=== PATIENT | male | born 1935 | race Caucasian/White ===

== ENCOUNTER → 2023-05-04 | Outpatient (REF) | payer MEDICARE, SELFPAY ==
[2023-05-04 08:54] LABS: Troponin-I HS 116 pg/mL (3.0-78.0)
== END ==
LOC: OLS.WHLTSB 05:00
DX: I25.10 Atherosclerotic heart disease of native coronary artery without angina pectoris (principal); Z79.899 Other long term (current) drug therapy
CPT/HCPCS: 36415; 84484

== ENCOUNTER → 2023-05-06 | Outpatient (REF) | payer MEDICARE, SELFPAY ==
[2023-05-06 10:44] LABS: Digoxin Level 0.96 ng/mL (0.80-2.00)
== END ==
LOC: OLS.WHLTSB 05:05
DX: I48.0 Paroxysmal atrial fibrillation (principal); D46.9 Myelodysplastic syndrome, unspecified; K59.00 Constipation, unspecified; M15.9 Polyosteoarthritis, unspecified; M19.019 Primary osteoarthritis, unspecified shoulder
CPT/HCPCS: 36415; 80162

== ENCOUNTER 2023-05-14 12:14 | Inpatient (IN) | payer MEDICARE, SELFPAY ==
[2023-05-14] VITALS (11 sets, daily range): BP systolic 94–126; BP diastolic 45–99; PULSE 60–115; RESP 14–22; TEMP 36.4–39.7; O2SAT 2–100; BMI 28.0; BMI 27.6
--- NOTE | 2023-05-14 12:28 | EKG12_ITS ---
Test Reason : SYNCOPE Blood Pressure : / mmHG Vent. Rate : 063 BPM Atrial Rate : 065 BPM P-R Int : 000 ms QRS Dur : 162 ms QT Int : 430 ms P-R-T Axes : 013 -39 152 degrees QTc Int : 440 ms Ventricular-paced rhythm Abnormal ECG Confirmed by CASANDRA CAMP, KARL ([id number]), purchase request editor BEBO JUAN ([id number]) on 05/18/2023 1:03:26 PM Referred By: AMY Confirmed By:DELORES GUAJARDO MD
--- NOTE | 2023-05-14 12:29 | VDLE_ITS ---
Reason For Study: Right leg pain RIGHT GSV was harvested. CFV is compressible, spontaneous, competent and demonstrates pulsatile venous flow. FV is compressible, spontaneous, competent and demonstrates pulsatile venous flow. POP V is compressible, spontaneous, competent and demonstrates pulsatile venous flow. T/P Trunk is compressible. PTV is compressible. RT PerV is compressible. Procedure This is a venous duplex using B-mode, color flow and spectral Doppler. Exam performed portable in ED. A preliminary report was called and/or faxed to Dr. Diaz. VL/Venous Duplex US, Unilateral Interpretation Summary There is no evidence of right lower extremity deep vein thrombosis. Dilated rig ht popliteal vein to 2.14 x 2.17 cm in diameter Previously surgically harvested right great saphenous vein Pulsatile venous flow was noted throughout suggestive of proximal venous hypert ension or obstruction. Clinical correlation would be appropriate. Ordering Physician: Pedro Diaz Performed By: Tigist Brody RVT
--- NOTE | 2023-05-14 12:30 | EX.ED.DYSGE1 ---
HPI History of Present Illness Chief Complaint: Fever Informant: patient and family Narrative Narrative: Patient has a history of CMML, is following with Dr. Dozier at [facility] oncology, and has been getting chemotherapy injections. He had a routine follow-up for outpatient labs this morning, he had those drawn, and then went to breakfast, near the end of breakfast he started having rigors and feeling malaised. They got him into a car and took him over to his doctor's office and he was referred here to the ER where in triage she was determined to have a fever of 103.5. Patient denies any other new symptoms. He seemed to be hypoxic in triage but nursing admits that he was extremely tremulous, cool fingers and difficult to get a reading. The patient does not feel dyspneic or have any discomfort right now, just feels weak all over. He states his right leg has been hurting and swelling and he had an ultrasound scheduled for today to evaluate for DVT. He just had a med port of some sort removed from his right upper extremity due to it being clotted off according to a family member. [facility] Medical History (Updated 05/14/23 @ 16:[address] Pedro Diaz MD) Atheroembolism of foot Benign essential HTN Cerebral vascular accident (~08/2022) CMML (chronic myelomonocytic leukemia) Complete heart block Coronary artery disease (~09/2022) HLD (hyperlipidemia) Hypothyroidism Lumbar stenosis Myasthenia gravis Nocturnal hypoxemia Osteoarthritis Pacemaker (~09/2022) Home Medications aspirin 81 mg tablet,delayed release 81 mg PO DAILY 04/09/23 [History Last Taken 05/14/23] cholecalciferol (vitamin D3) 25 mcg (1,000 unit) tablet 25 mcg PO DAILY 04/09/23 [History Last Taken 05/14/23] cyanocobalamin (vitamin B-12) 1,000 mcg capsule 1,000 mcg PO DAILY 04/09/23 [History Last Taken 05/14/23] ferrous fumarate 325 mg (106 mg iron) tablet 325 mg PO TIDCM 04/09/23 [History Last Taken 05/14/23] furosemide 20 mg tablet (Lasix) 20 mg PO BID 04/09/23 [History Last Taken 05/14/23] levothyroxine 112 mcg tablet (Synthroid) 112 mcg PO DAILY 04/09/23 [History Last Taken 05/14/23] multivitamin 1 tab PO DAILY 04/09/23 [History Last Taken 05/14/23] polyethylene glycol 3350 17 gram oral powder packet 17 g PO DAILY PRN constipation 04/09/23 [History Last Taken Unknown] rivaroxaban 20 mg tablet (Xarelto) 20 mg PO QPM 04/09/23 [History Last Taken 05/13/23] atorvastatin 20 mg tablet 20 mg PO QHS 05/14/23 [History Last Taken 05/13/23] digoxin 125 mcg (0.125 mg) tablet 0.125 mg PO DAILY 05/14/23 [History Last Taken 05/14/23] metoprolol tartrate 25 mg tablet 12.5 mg PO BID 05/14/23 [History Last Taken 05/14/23] Allergy/AdvReac Type Severity Reaction Status Date / Time No Known Allergies Allergy Verified 05/14/23 12:20 Family History Mother Heart disease Father Heart disease Surgical History History of ankle surgery (~12/2020) History of arthroplasty of right shoulder (~2008) Hx of CABG (~07/2021) Social History Smoking Status: Former smoker how long ago did patient quit smokinyrs alcohol intake: current alcohol intake frequency: 0-2 drinks per day Alcohol type: beer, wine and hard liquor details: 1-2 beers per week substance use type: does not use ROS ROS ED Constitutional Constitutional ED: Reports chills, fatigue, fever(s) and subjective Eyes Eyes: Denies change in vision or diplopia ENT ENT ED: Denies rhinorrhea or sore throat Cardiovascular Cardiovascular: Reports edema; Denies chest pain or palpitations Respiratory/Chest Respiratory/Chest: Denies cough or dyspnea Gastrointestinal Gastrointestinal: Denies abdominal pain, melena, nausea or vomiting Genitourinary Genitourinary ED: Denies dysuria or hematuria Musculoskeletal Musculoskeletal: Reports extremity pain; Denies back pain or neck pain Integumentary Reports wounds; Denies abscess or rash Neurologic Neurologic: Denies headache(s), paresthesias or weakness Psychiatric Psychiatric: Denies anxiety or suicidal thoughts Hematologic/Lymphatic Hematologic/Lymphatic: Reports easy bleeding and easy bruising EXAM Physical Exam Const Vital Signs: 05/14/23 12:15 05/14/23 12:18 05/14/23 12:21 Temperature 103.5 F H Temperature Source Temporal Pulse Rate 115 H 73 Respiratory Rate 22 H 18 Respiratory Effort Normal Non-Labored Respiratory Pattern Normal Blood Pressure 126/99 H Blood Pressure Mean 108 Pulse Ox 83 95 Oxygen Delivery Method Room Air Nasal Cannula Oxygen Flow Rate (L/min) 3 05/14/23 12:22 05/14/23 12:54 05/14/23 14:44 Temperature 99.2 F H Temperature Source Oral Pulse Rate 60 Respiratory Rate 14 Respiratory Effort Respiratory Pattern Blood Pressure 94/51 L Blood Pressure Mean 65 Pulse Ox 98 98 Oxygen Delivery Method Nasal Cannula Nasal Cannula Nasal Cannula Oxygen Flow Rate (L/min) 3 2 Positive well nourished and well developed General Appearance ED: well developed and NAD HEENT Reports moist mucous membranes normocephalic and atraumatic Eyes PERRL and EOMs intact bilaterally Neck full ROM and supple Resp normal respiratory effort and clear to auscultation bilaterally Cardio regular rate, regular rhythm and no murmurs GI non-tender and non-distended Auscultation: normoactive bowel sounds Palpation: soft Back/Spine no CVA tenderness General Back: other FROM Extremity Extremity Narrative: Erythematous right lower leg from the mid trevizo down, nontender. Bandages on right lower leg, there is no active bleeding or signs of any infected wounds, the due to appear to be minor superficial healing wounds that the patient states were bleeding earlier. Medial right upper arm: Site/wound where apparent port was recently removed, sutures intact, no significant tenderness, there is some ecchymosis nearby, there is a small amount of serosanguineous discharge that is expressible from the incision but no dehiscence. General Extremety ED: Yes edema; Negative for pulses abnormal or tenderness General Extremity: edema bilateral lower extremity Details: moderate (Asymmetric, worse on the right); Negative for pulses abnormal Neuro oriented x3, CN's II-XII intact bilaterally and no sensory deficits noted Sensorium / Orientation: awake and alert Motor Exam: strength 5/5 throughout Skin Skin Narrative: Erythematous right lower leg, which is nontender superficially and asymmetric compared with the left. Both lower legs are tender to deep palpation, pressure needed to induce pitting. Postprocedural wound with sutures intact right upper arm see above, no signs of obvious infection or tenderness/abscess. Small minor superficial wounds on the right lower leg anteriorly. Multiple small puncture sites with bandages on them and minor surrounding ecchymosis across the lower abdominal wall. These areas are mildly tender but not severely so. No obvious signs of petechia or purpura. Sepsis Attestation Sepsis Alert: Yes Sepsis Attestation: Agree w/Sepsis Date exam was performed: 05/14/23 Time exam was performed: 15:00 Possible Source of Sepsis: Pulmonary, Skin/soft tissue and Wound Sepsis Organ Dysfunction Criteria Present: SBP < 90 mmHg or MAP < 65 mmHg and Lactic Acid > 2 mmol/L Supportive Findings: fever 103.5. slight bandemia. Fluid Resuscitation Fluid resuscitation indicated?: Yes Fluid Resuscitation ordered: Lesser volume fluid bolus ordered Amount of fluid ordered: 2,000 Reason for lesser fluid bolus:: Concern for fluid overload (seeping BLE peripheral edema), Heart failure (poss) and BP Responded to a lesser volume Sepsis Note Date exam was performed: 05/14/23 Time exam was performed: 16:06 Sepsis Attestation: Sepsis re-evaluation was performed Response to fluids: Fluid responsive hypotension (112/42) MDM MDM MDM Narrative Medical decision making narrative: Obtain no compromise and has a temperature of 103.5, of which she was having symptoms today. Right lower extremity appears to be cellulitic, since he had a blood clot in the port that was removed and he was supposed to have an ultrasound of the right lower extremity today anyway, we had that done which resulted preliminarily before any of the other testing, paint technician told me it was negative for DVT, so I presume this is cellulitis and may be the cause of his fever. His lungs are diminished throughout, but fairly clear, he had a minor cough according to a family member today but he has not been coughing recently. There is 1 view chest x-ray on my interpretation shows CHF versus bilateral pneumonia. This still has not been read by radiology. Therefore I sent the BNP, it is high at almost 1000. He does not have a prior echocardiogram in our system, I attempted to review the records. His blood counts are reviewed, he has a small amount of bands, cultures were sent and he was started on empiric Zosyn for the cellulitis. He is hypoxic even when we took him off of oxygen, down to 87% on room air at rest. Therefore he is back on a 2 L nasal cannula at 98%. I reexamined his leg looks no different, I do not suspect necrotizing fasciitis here, he does not have any subcutaneous emphysema and he can range all joints there without difficulty. His troponin is abnormal, but very slightly nonspecifically, and less so than it was previously at a different visit. This will be repeated. EKG shows nothing acute, but limited since he has paced rhythm. Clinically he is feeling well and asymptomatic at rest. He was very weak, given all of this plan is for admission. Paged oncology as well as hospitalist to discuss further. History & Record Review Additional record(s) reviewed:: Prior labs and No prior records (echo) Lab Data Attestation: I reviewed the patient's lab results. Labs: Laboratory Results - last 24 hr 05/14/23 12:55 WBC 7.0 RBC 2.84 L Hgb 9.3 L Hct 29.3 L MCV 103.2 H MCH 32.7 H MCHC 31.7 L RDW Std Deviation 83.3 H RDW Coeff of Luis Alberto 22.2 H Plt Count 399 MPV 10.7 Immature Gran % (Auto) 1.600 H Neut % (Auto) 89.7 H Lymph % (Auto) 5.6 L [place] % (Auto) 2.7 Eos % (Auto) 0.0 Baso % (Auto) 0.4 Absolute Neuts (auto) 6.2 Absolute Lymphs (auto) 0.39 L Nucleated RBC % 0.4 Differential Comment SCANNED Polychromasia RARE Anisocytosis 2+ Macrocytosis 1+ PT 18.6 H INR 1.5 APTT 30.3 Sodium 136 Potassium 4.5 Chloride 96 L Carbon Dioxide 35.0 H Anion Gap 5 BUN 31 H Creatinine 1.17 Estim Creat Clear Calc 41.59 Est GFR (MDRD) Af Amer 76 Est GFR (MDRD) Non-Af 63 BUN/Creatinine Ratio 26.5 H Glucose 252 H Lactic Acid 3.8 H* Calcium 8.4 L Total Bilirubin 1.20 H AST 20 ALT 51 Alkaline Phosphatase 92 Troponin I High Sens 111 H B-Natriuretic Peptide 972.1 H Total Protein 5.4 L Albumin 2.7 L Globulin 2.7 Albumin/Globulin Ratio 1.0 Radiography Diagnostic Testing: Clinical Impression(s) from Imaging Studies Chest X-Ray 05/14/23 13:34 IMPRESSION: Poor inspiratory effort. Findings in keeping with CHF. Electronically Signed: Demetri Castillo MD at 13:59 EDT , Rhythm Strip Rhythm Strip: vent pacing Rate: 60 Ectopy: None EKG Initial EKG: Attestation: I personally reviewed and interpreted this EKG as follows: Interpretation: No Acute Injury Pattern and Paced Management Discussion w/another healthcare provider: Hospitalist Discharge Plan Dx/Rx/DC Orders Clinical Impression: Cellulitis of right lower leg, Acquired immunocompromised state, CMML (chronic myelomonocytic leukemia), Hypoxemia, Sepsis Disposition Disposition: Acute Care [facility]
[2023-05-14] MEDS: Acetaminophen 500 MG Tablet 1000 MG PO (12:56)
[2023-05-14 13:11] LABS: Absolute Lymphocyte Count 0.39 X10^3/uL (0.83-4.51); Absolute Neutrophil Count 6.2 X10^3/uL (2.0-7.7); Basophil# 0.03 X10^3/uL; Basophil% 0.4 % (0-1); Hematocrit 29.3 % (40-54); Hemoglobin 9.3 g/dL (13.0-16.5); Lymphocyte # 0.39 X10^3/ul (0.83-4.51); Lymphocyte % 5.6 % (19-41); Mean Corp Hgb Conc 31.7 g/dL (32-36); Mean Corpuscular Hgb 32.7 pg (27.0-32.0); Mean Corpuscular Volume 103.2 fL (80-94); Mean Platelet Vol. 10.7 fl (6.2-12.0); Monocyte# 0.19 X10^3/uL; Monocyte% 2.7 % (0-10); NRBC Flagged by Analyzer 0.4 % (0-5); Neutrophil # 6.24 X10^3/uL (2.7-7.7); Neutrophil % 89.7 % (47-70); POSITIVE DIFFERENTIAL YES; POSITIVE MORPHOLOGY YES; Platelet Count 399 K/mm3 (150-450); RBC Distribution Width CV 22.2 % (11.6-14.6); RBC Distribution Width SD 83.3 fl (35.1-43.9); Red Blood Count 2.84 M/mm3 (4.6-6.2)
[2023-05-14 13:13] LABS: Differential Indicated SCAN CRITERIA MET
[2023-05-14 13:20] LABS: International Normalized Ratio 1.5; Prothrombin Time (Protime)PT. 18.6 SECONDS (11.7-14.9)
[2023-05-14 13:21] LABS: Partial Thromboplast Time 30.3 Seconds (24.1-36.2)
[2023-05-14 13:27] LABS: Anisocytosis 2+; Differential Comment SCANNED; Macrocytosis 1+; Polychromasia RARE
[2023-05-14 13:28] LABS: AST(SGOT) 20 U/L (15-37); Alanine Aminotransfer ALT/SGPT 51 U/L (16-61); Albumin, Serum 2.7 g/dL (3.2-5.0); Alkaline Phosphatase 92 U/L (45-117); Anion Gap 5 (5-15); BUN 31 mg/dL (7-18); BUN/Creat Ratio 26.5 RATIO (10-20); Calcium,Total 8.4 mg/dL (8.5-10.1); Chloride 96 mmol/L (98-107); Creatinine, Serum 1.17 mg/dL (0.70-1.30); EST Glomerular Filtration Rate 63 mL/min (>60); Est Glom Filt Rate - Afr Amer 76 mL/min (>60); Estimated Creatinine Clearance 41.59 ml/min; Globulin 2.7 g/dL (2.2-4.2); Glucose 252 mg/dL (74-106); Potassium 4.5 mmol/L (3.5-5.1); Protein, Total 5.4 g/dL (6.4-8.2); Sodium Level 136 mmol/L (136-145); Troponin-I HS 111 pg/mL (3.0-78.0)
--- NOTE | 2023-05-14 13:34 | RAD_ITS ---
STUDY: X-RAY CHEST REASON FOR EXAM: Male, 87 years old. Fever TECHNIQUE: Single AP portable view of the chest. COMPARISON: None. FINDINGS: EKG electrodes are seen. Limited inspiratory effort. Findings suggestive of CHF. There is no demonstrated pleural abnormality. Sternal cerclage wires and vascular clips are present from a prior sternotomy and coronary artery bypass graft procedure (CABG). A left-sided dual-chamber pacemaker is seen. Normal mediastinum and sam. Normal visualized pulmonary arteries. Normal visualized aortic arch and descending thoracic aorta. Normal visualized thoracic spine. The patient is status post bilateral shoulder replacement. There is no demonstrated abnormality of the visualized soft tissue structures of the upper abdomen. RAD/Chest 1 View (Portable) IMPRESSION: Poor inspiratory effort. Findings in keeping with CHF. Electronically Signed: Demetri Castillo MD at 13:59 EDT ,
[2023-05-14 13:59] LABS: Lactic Acid 3.8 mmol/L (0.4-1.9)
[2023-05-14] MEDS: 0.9% Normal Saline 1,000 ML 999 ML IV (15:16)
[2023-05-14 15:31] LABS: BNP,B-Type NATRIURETIC PEPTIDE 972.1 pg/mL (0-100)
--- NOTE | 2023-05-14 16:21 | NURSING ---
PCU CHOW SEPSIS, CELLULITIS, CHF, HYPOXEMIA, CMML
--- NOTE | 2023-05-14 16:47 | PCM.HP.STD ---
HPI - General General Date of Admission: 05/14/23 Date of Service: 05/14/23 Chief Complaint: Chills, RLE pain HPI Narrative Mr. Luis is an 87-year-old male with history of CVA, CMML on chemotherapy who presented to [facility] 05/14/2023 due to weakness and rigors. In the ED he was found to have a temperature of 103.5 and was given Tylenol and this improved and he felt much better. Was noted to have bilateral lower extremity swelling right greater than left and was scheduled to get an outpatient DVT scan in the next 1 to 2 days so this was performed in the ED and no new DVT noted and it was presumed that this was cellulitis and likely source of his infection. White blood cell count 7.0 with 89.7% neutrophils, hemoglobin 9.3 with no baseline available, creatinine 1.17 also with no baseline available and lactic 3.8. He did have 83% O2 sat on room air so chest x-ray obtained and chest x-ray did have findings suggestive of fluid overload and he had a BNP of 972 however given concerns for sepsis and his blood pressure soft he was given 2 L of IVF and no Lasix especially given his O2 sat increased to 98% on 2 L. Hospitalist consulted for admission. Patient evaluated with family at bedside. He reports that his right leg has been aching and hurting for the past 2 days but this morning was bothering him more and he also felt the chills and weakness prompting him to come to the emergency department because he was worried he had a blood clot as he just had a chronic Mediport that has been in his right upper arm removed several days ago due to thrombus information there and has had some weeping of serosanguineous fluid from there but no pus. He said both of his lower extremities always stays swollen and he takes Lasix 3 times a day at home for this and subsequently has to urinate most hours of the night. Denies fevers noted before this day, does note that his skin will spontaneously tear open and he will get bleeding or wounds on his legs and does have a Band-Aid over 1 on his right trevizo. Denies this happening before. Denies any weight changes, denies any chest pain or shortness of breath and denies any consistent coughing. No other complaints at this time [facility] Medical History (Updated 05/14/23 @ 17:[address] Mary Prather MD) Atheroembolism of foot Benign essential HTN Cerebral vascular accident (~08/2022) CMML (chronic myelomonocytic leukemia) Complete heart block Coronary artery disease (~09/2022) HLD (hyperlipidemia) Hypothyroidism Lumbar stenosis Myasthenia gravis Nocturnal hypoxemia Osteoarthritis Pacemaker (~09/2022) Home Medications aspirin 81 mg tablet,delayed release 81 mg PO DAILY 04/09/23 [History Last Taken 05/14/23] cholecalciferol (vitamin D3) 25 mcg (1,000 unit) tablet 25 mcg PO DAILY 04/09/23 [History Last Taken 05/14/23] cyanocobalamin (vitamin B-12) 1,000 mcg capsule 1,000 mcg PO DAILY 04/09/23 [History Last Taken 05/14/23] ferrous fumarate 325 mg (106 mg iron) tablet 325 mg PO TIDCM 04/09/23 [History Last Taken 05/14/23] furosemide 20 mg tablet (Lasix) 20 mg PO BID 04/09/23 [History Last Taken 05/14/23] levothyroxine 112 mcg tablet (Synthroid) 112 mcg PO DAILY 04/09/23 [History Last Taken 05/14/23] multivitamin 1 tab PO DAILY 04/09/23 [History Last Taken 05/14/23] polyethylene glycol 3350 17 gram oral powder packet 17 g PO DAILY PRN constipation 04/09/23 [History Last Taken Unknown] rivaroxaban 20 mg tablet (Xarelto) 20 mg PO QPM 04/09/23 [History Last Taken 05/13/23] atorvastatin 20 mg tablet 20 mg PO QHS 05/14/23 [History Last Taken 05/13/23] digoxin 125 mcg (0.125 mg) tablet 0.125 mg PO DAILY 05/14/23 [History Last Taken 05/14/23] metoprolol tartrate 25 mg tablet 12.5 mg PO BID 05/14/23 [History Last Taken 05/14/23] Allergy/AdvReac Type Severity Reaction Status Date / Time No Known Allergies Allergy Verified 05/14/23 12:20 Family History Mother Heart disease Father Heart disease Surgical History History of ankle surgery (~12/2020) History of arthroplasty of right shoulder (~2008) Hx of CABG (~07/2021) Social History Smoking Status: Former smoker how long ago did patient quit smokinyrs alcohol intake: current alcohol intake frequency: 0-2 drinks per day Alcohol type: beer, wine and hard liquor details: 1-2 beers per week substance use type: does not use ROS ROS Narrative General: Fever HENT: Denies headache, denies stuffy nose, denies sore throat EYES: Denies changes in vision Resp: Denies consistent cough, denies shortness of breath Cardiac: Denies chest pain GI: Denies abdominal pain, denies changes in bowel, denies nausea/vomiting : Denies changes in urination Extremity: chronic BLE swelling, RLE redness > left MSK: Gen weakness Neuro: Denies any numbness/tingling Heme: Easy bleeding and skin tears, occasional weeping in legs Skin: RLE redness Psychiatric: No complaints voiced Vital Signs Vital Signs Vital Signs: 05/14/23 12:15 05/14/23 12:18 05/14/23 12:21 Temperature 103.5 F H Temperature Source Temporal Pulse Rate 115 H 73 Respiratory Rate 22 H 18 Respiratory Effort Normal Non-Labored Respiratory Pattern Normal Blood Pressure 126/99 H Blood Pressure Mean 108 Pulse Ox 83 95 Oxygen Delivery Method Room Air Nasal Cannula Oxygen Flow Rate (L/min) 3 05/14/23 12:22 05/14/23 12:54 05/14/23 14:44 Temperature 99.2 F H Temperature Source Oral Pulse Rate 60 Respiratory Rate 14 Respiratory Effort Respiratory Pattern Blood Pressure 94/51 L Blood Pressure Mean 65 Pulse Ox 98 98 Oxygen Delivery Method Nasal Cannula Nasal Cannula Nasal Cannula Oxygen Flow Rate (L/min) 3 2 05/14/23 16:25 Temperature 99.2 F H Temperature Source Oral Pulse Rate 60 Respiratory Rate 16 Respiratory Effort Respiratory Pattern Blood Pressure 112/59 L Blood Pressure Mean 76 Pulse Ox 98 Oxygen Delivery Method Nasal Cannula Oxygen Flow Rate (L/min) 2 Weight Weight: 81.4 kg Body Mass Index (BMI) 28.0 Physical Exam Narrative General: Alert, oriented, no apparent distress HEENT: Atraumatic, normocephalic Eyes: Anicteric, normal conjunctiva, extraocular movements grossly intact Neck: Supple Respiratory: Somewhat diminished bilaterally, normal respiratory effort Cardiovascular: Regular rate and rhythm GI: Soft, nontender, nondistended Extremities: 2-3+ bilateral lower extremity edema Musculoskeletal: Moving all extremities Neuro: No overt focal neurological deficits Skin: Right arm wrapped where sutures are, right trevizo with abrasion and erythema Psych: Cooperative Results Lab / Micro Data 05/14/23 12:55 05/14/23 12:55 Labs: Laboratory Results - last 24 hr 05/14/23 12:55: WBC 7.0, RBC 2.84 L, Hgb 9.3 L, Hct 29.3 L, MCV 103.2 H, MCH 32.7 H, MCHC 31.7 L, RDW Std Deviation 83.3 H, RDW Coeff of Luis Alberto 22.2 H, Plt Count 399, MPV 10.7, Immature Gran % (Auto) 1.600 H, Neut % (Auto) 89.7 H, Lymph % (Auto) 5.6 L, [place] % (Auto) 2.7, Eos % (Auto) 0.0, Baso % (Auto) 0.4, Absolute Neuts (auto) 6.2, Absolute Lymphs (auto) 0.39 L, Nucleated RBC % 0.4, Differential Comment SCANNED, Polychromasia RARE, Anisocytosis 2+, Macrocytosis 1+, PT 18.6 H, INR 1.5, APTT 30.3, Sodium 136, Potassium 4.5, Chloride 96 L, Carbon Dioxide 35.0 H, Anion Gap 5, BUN 31 H, Creatinine 1.17, Estim Creat Clear Calc 41.59, Est GFR (MDRD) Af Amer 76, Est GFR (MDRD) Non-Af 63, BUN/Creatinine Ratio 26.5 H, Glucose 252 H, Lactic Acid 3.8 H*, Calcium 8.4 L, Total Bilirubin 1.20 H, AST 20, ALT 51, Alkaline Phosphatase 92, Troponin I High Sens 111 H, B-Natriuretic Peptide 972.1 H, Total Protein 5.4 L, Albumin 2.7 L, Globulin 2.7, Albumin/Globulin Ratio 1.0 Rhythm Strip Rhythm Strip: vent pacing Rate: 60 Ectopy: None Radiology Impression Chest X-Ray 07/06/23 13:34 IMPRESSION: Poor inspiratory effort. Findings in keeping with CHF. Electronically Signed: Demetri Castillo MD at 13:59 EDT , Assessment & Plan Assessment/Plan (1) Sepsis: (2) Hypoxemia: (3) CMML (chronic myelomonocytic leukemia): (4) Cellulitis of right lower leg: (5) Complete heart block: (6) Pacemaker: (7) Coronary artery disease: PLAN: Plan #Sepsis 2/2 likely RLE cellulitis -Per verbal checkout from ED physician pt had SBP in the 80's and lactic acid resulted at 3.8 with left shift on WBC and likely source of RLE -Preliminary results of right lower extremity negative for DVT, presumably cellulitis -Bld cx -2L IVF ordered and BP improved, not given further fluids d/t concomitant concern for fluid overload -Broad spectrum abx -Trend lactic #Acute hypoxia -Unclear etiology, there is unclear if it was fluid overload based on BNP of 972 and chest x-ray appeared congested with lower extremity edema however he improved with antibiotics, fluids and 2 L of O2 -Chest x-ray was poor inspiration -We will obtain echocardiogram -I's and O's, daily weights #Elevated lactic acid -as above #History of coronary artery disease/pacemaker -CABG x4 2 years ago -Pacemaker last fall -Continue statin and aspirin #CMML -F/w Dr. Dozier, chemo qmonth #Atrial fibrillation -Per history -Patient on digoxin, metoprolol, Xarelto -Continue Xarelto and metoprolol as blood pressure allows -We will check digoxin level #Hyperglycemia -No known history of diabetes but glucose was 252 on BMP in the ED -May be secondary to infection, will add glucose checks and sliding scale #DANE versus CKD stage IIIb -No baseline, unclear if this is elevated for him however BUN was somewhat up 31 -Trend BMP -Patient received IVF #Microcytic anemia -Unclear baseline, monitor for signs or symptoms of bleeding -Continue oral iron supplementation -Daily CBC #Hypothyroidism -Continue Synthroid #DVT ppx: Jesse Prather MD Time spent in the patient's overall evaluation,decision-making process, review of diagnostic data, adjustment of management, discussion with other providers, nursing nursing and ancillary staff involved in patient's care documentation, 76 Minutes Sepsis Attestation Sepsis Alert: Yes Sepsis Attestation: Agree w/Sepsis Date exam was performed: 05/14/23 Time exam was performed: 04:20 Possible Source of Sepsis: Skin/soft tissue Sepsis Organ Dysfunction Criteria Present: SBP < 90 mmHg or MAP < 65 mmHg and Lactic Acid > 2 mmol/L Fluid Resuscitation Fluid resuscitation indicated?: Yes Fluid Resuscitation ordered: Lesser volume fluid bolus ordered Amount of fluid ordered: 2,000 Reason for lesser fluid bolus:: Concern for fluid overload Charges/Coding Visit Charges Inpatient E&M: 36155 Init Hosp L3
--- NOTE | 2023-05-14 17:04 | ECHOD_ITS ---
Version 2 Reason For Study: CHF Procedure This was a 2D Doppler, Color Flow transthoracic echocardiogram. technically difficult study due to uncooperative patient. Exam performed portable in patient room. Left Ventricle Normal LV size. The estimated ejection fraction is 55-60 %. Unable to assess diastolic dysfunction. No regional wall motion abnormalities noted. Right Ventricle Normal RV size. There is a pacemaker lead in the right ventricle. Normal systolic function. Atria Normal left atrium. Normal right atrium. ICD or pacer leads identified within the right atrium. No doppler evidence for ASD. Mitral Valve There is severe mitral annular calcification. There is no mitral valve stenosis. Trivial mitral valve insufficiency. Tricuspid Valve There is no tricuspid stenosis. Mild tricuspid valve insufficiency. Pulmonary artery systolic pressure is 65 mmHg. Aortic Valve Trisinus/trileaflet aortic valve. Moderate diffuse aortic valve thickening. Mild aortic stenosis. No aortic valve insufficiency. Pulmonic Valve There is no pulmonic valvular stenosis. No pulmonic valve insufficiency. Great Vessels Normal aortic root. Pericardium/Pleural No pericardial effusion. MMode/2D Measurements & Calculations LVIDd: 4.7 cm IVSd: 1.1 cm LVOT diam: 2.3 cm LVIDs: 3.8 cm LVPWd: 1.7 cm LVOT area: 4.3 cm2 FS: 19.2 % Ao root diam: 3.7 cm LAV(MOD-bp): 58.2 ml LVAd ap4: 28.0 cm2 LAV(MOD-bp) Indexed: 30.3 ml/m2 LVLd ap4: 7.8 cm LAV(MOD-sp2): 59.2 ml EDV(MOD-sp4): 81.6 ml LAV(MOD-sp4): 56.9 ml EDV(sp4-el): 85.2 ml LVAs ap4: 17.4 cm2 LVLs ap4: 6.6 cm ESV(MOD-sp4): 37.7 ml ESV(sp4-el): 39.1 ml EF(MOD-sp4): 53.8 % EF(sp4-el): 54.1 % SV(MOD-sp4): 43.9 ml SV(sp4-el): 46.1 ml LA A4 area: 20.0 cm2 LA dimension(2D): 3.7 cm RA A4 area: 16.1 cm2 TAPSE: 1.3 cm Time Measurements MV dec time: 0.16 sec Doppler Measurements & Calculations MV E max oneal: 84.9 cm/sec Lat Peak E' Oneal: 10.7 cm/sec Med Peak E' Oneal: 10.3 cm/sec MV A max oneal: 47.2 cm/sec E/E' lat: 7.9 E/E' med: 8.2 MV E/A: 1.8 MV V2 max: 93.1 cm/sec Ao V2 max: 158.8 cm/sec MV max P.5 mmHg MV dec slope: 519.7 cm/sec2 Ao max P.1 mmHg MV V2 mean: 39.7 cm/sec Ao V2 mean: 112.3 cm/sec MV mean P.93 mmHg Ao mean P.8 mmHg MV V2 VTI: 21.7 cm Ao V2 VTI: 35.8 cm AV (velocity ratio): 0.83 MVA(VTI): 5.9 cm2 DELONTE(I,D): 3.6 cm2 DELONTE(V,D): 4.1 cm2 LV V1 max: 150.5 cm/sec SV(LVOT): 127.2 ml PA V2 max: 107.2 cm/sec LV V1 max P.1 mmHg PA V2 mean: 67.4 cm/sec LV V1 mean P.7 mmHg LV V1 mean: 101.0 cm/sec LV V1 VTI: 29.6 cm TR max oneal: 383.6 cm/sec TR max P.9 mmHg ECHO/Echo Complete Interpretation Summary The estimated ejection fraction is 55-60 %. Unable to assess diastolic dysfunction. Trivial mitral valve insufficiency. Mild aortic stenosis. Ordering Physician: Mary Prather Referring Physician: NO PCP GIVEN Performed By: Ngoc [place] RCS
[2023-05-14 17:05] LABS: Reflex Lactate? Y
--- NOTE | 2023-05-14 17:51 | ED.RN ---
THIS RN ORDERED PT MEAL.
--- NOTE | 2023-05-14 17:51 | CM.ED ---
Social Work SW introduced self and role to patient. SW discussed discussed discharge planning with patient. Pt reports he would like to return to [place] and declined needing a list. SW to follow for discharge needs. Alexandra Colon MACHINE COMPOSITOR, CONDITIONER TENDER
[2023-05-14 18:14] LABS: Lactic Acid 2.4 mmol/L (0.4-1.9)
--- NOTE | 2023-05-14 21:56 | PCM.RX.CS ---
Consult Antibiotic Management Pharmacy has been consulted to manage selected antiobiotic: Vancomycin Type of Intervention Type of Consult: New start Prior Doses of Antibiotics Prior Doses of Antibiotics Received/Current Regimen: 2000mg vancomycin given 05/14/23 @2131 Labs Labs: Sodium 136 mmol/L (136-145) 05/14/23 12:55 Potassium 4.5 mmol/L (3.5-5.1) 05/14/23 12:55 Chloride 96 mmol/L (98-107) L 05/14/23 12:55 Carbon Dioxide 35.0 mmol/L (21.0-32.0) H 05/14/23 12:55 Anion Gap 5 (5-15) 05/14/23 12:55 BUN 31 mg/dL (7-18) H 05/14/23 12:55 Creatinine 1.17 mg/dL (0.70-1.30) 05/14/23 12:55 Est GFR (MDRD) Af Amer 76 mL/min (>60) 05/14/23 12:55 Est GFR (MDRD) Non-Af 63 mL/min (>60) 05/14/23 12:55 BUN/Creatinine Ratio 26.5 RATIO (10-20) H 05/14/23 12:55 Glucose 252 mg/dL (74-106) H 05/14/23 12:55 Dosing Weight Weight used for dosin.2 kg Estimated Creatinine Clearance Estimated Creatinine Clearance: 41.6 Goal Trough Goal Trough: 15-20 mcg/mL Pharmacy Plan for Drug Dosing Pharmacy Plan for Drug Dosing: Pharmacy Service will continue to monitor and adjust dosing as required. Follow-Up Labs Follow-Up Labs: Trough: Vancomycin Date/Time Labs Ordered Labs to be done on [date and time ordered]: 05/16/23 @0900
[2023-05-14] MEDS: Metoprolol Tartrate 25 MG Tablet 12.5 MG PO (22:08)
[2023-05-14] MEDS: Atorvastatin Calcium 20 MG Tablet PO (22:08)
[2023-05-15] VITALS (10 sets, daily range): BP systolic 103–136; BP diastolic 51–57; PULSE 56–60; RESP 16–18; TEMP 36.8–37; O2SAT 92–99; BMI 27.9
[2023-05-15 00:22] LABS: Bedside Glucose 171 mg/dL (74-106)
[2023-05-15] MEDS: Levothyroxine 112 MCG Tablet PO (06:07)
[2023-05-15 06:27] LABS: Absolute Lymphocyte Count 0.52 X10^3/uL (0.83-4.51); Absolute Neutrophil Count 7.5 X10^3/uL (2.0-7.7); Basophil# 0.05 X10^3/uL; Basophil% 0.6 % (0-1); Eosinophil# 0.02 X10^3/uL; Eosinophils% 0.2 % (0-5); Hemoglobin 9.2 g/dL (13.0-16.5); Lymphocyte # 0.52 X10^3/ul (0.83-4.51); Lymphocyte % 6.2 % (19-41); Mean Corp Hgb Conc 31.7 g/dL (32-36); Mean Corpuscular Hgb 33.1 pg (27.0-32.0); Mean Corpuscular Volume 104.3 fL (80-94); Mean Platelet Vol. 11.4 fl (6.2-12.0); Monocyte# 0.15 X10^3/uL; Monocyte% 1.8 % (0-10); NRBC Flagged by Analyzer 0.4 % (0-5); Neutrophil # 7.49 X10^3/uL (2.7-7.7); Neutrophil % 89.8 % (47-70); POSITIVE DIFFERENTIAL YES; POSITIVE MORPHOLOGY YES; Platelet Count 321 K/mm3 (150-450); RBC Distribution Width CV 22.8 % (11.6-14.6); RBC Distribution Width SD 85.3 fl (35.1-43.9); Red Blood Count 2.78 M/mm3 (4.6-6.2); White Blood Count 8.4 K/mm3 (4.4-11.0)
[2023-05-15 06:51] LABS: Differential Indicated SCAN CRITERIA MET
[2023-05-15 07:22] LABS: Bedside Glucose 108 mg/dL (74-106)
[2023-05-15 07:25] LABS: Digoxin Level 1.39 ng/mL (0.80-2.00)
[2023-05-15 07:26] LABS: ALB/GLOB Ratio 0.9 RATIO (0.9-2.4); AST(SGOT) 22 U/L (15-37); Alanine Aminotransfer ALT/SGPT 46 U/L (16-61); Albumin, Serum 2.4 g/dL (3.2-5.0); Alkaline Phosphatase 81 U/L (45-117); Anion Gap 2 (5-15); BUN 28 mg/dL (7-18); Calcium,Total 8.1 mg/dL (8.5-10.1); Chloride 102 mmol/L (98-107); Creatinine, Serum 0.93 mg/dL (0.70-1.30); EST Glomerular Filtration Rate 81 mL/min (>60); Est Glom Filt Rate - Afr Amer 99 mL/min (>60); Estimated Creatinine Clearance 52.32 ml/min; Globulin 2.6 g/dL (2.2-4.2); Glucose 112 mg/dL (74-106); Magnesium 1.9 mg/dL (1.6-2.6); Potassium 4.1 mmol/L (3.5-5.1); Sodium Level 138 mmol/L (136-145); Thyroid Stim Hormone (TSH) 0.61 uIU/mL (0.358-3.74)
--- NOTE | 2023-05-15 07:38 | PCM.RX.CS ---
Consult Antibiotic Management Pharmacy has been consulted to manage selected antiobiotic: Vancomycin Type of Intervention Type of Consult: Follow-up Suspected Infection Suspected Infection: Skin/Soft tissue Labs Labs: Sodium 138 mmol/L (136-145) 05/15/23 05:17 Potassium 4.1 mmol/L (3.5-5.1) 05/15/23 05:17 Chloride 102 mmol/L (98-107) 05/15/23 05:17 Carbon Dioxide 34.0 mmol/L (21.0-32.0) H 05/15/23 05:17 Anion Gap 2 (5-15) L 05/15/23 05:17 BUN 28 mg/dL (7-18) H 05/15/23 05:17 Creatinine 0.93 mg/dL (0.70-1.30) 05/15/23 05:17 Est GFR (MDRD) Af Amer 99 mL/min (>60) 05/15/23 05:17 Est GFR (MDRD) Non-Af 81 mL/min (>60) 05/15/23 05:17 BUN/Creatinine Ratio 30.0 RATIO (10-20) H 05/15/23 05:17 Glucose 112 mg/dL (74-106) H 05/15/23 05:17 Goal Trough Goal Trough: 15-20 mcg/mL Pharmacy Plan for Drug Dosing Pharmacy Plan for Drug Dosing: DAILY ASSESSMENT Current Vancomycin Dose: 500mg Q12H Number of Doses Received: 2000mg x1 loading dose Current Renal Function: sCr 0.82 (CrCl 57.1 ml/min with AdjBW 72.1kg) Renal Function Trend: improved Lab/Micro: pending Any Change in Vanc Plan: Yes - increase Vancomycin dosing regimen to 750mg Q12H Pending Level: Vancomycin trough @ 0900 05/16/23 Pharmacy Service will continue to monitor and adjust dosing as required. Follow-Up Labs Follow-Up Labs: Trough: Vancomycin Date/Time Labs Ordered Labs to be done on [date and time ordered]: 09:00 05/16/23
[2023-05-15 07:39] LABS: Macrocytosis 1+; Platelet Estimate ADEQUATE (ADEQ); Polychromasia 1+
[2023-05-15 07:41] LABS: International Normalized Ratio 1.5; Prothrombin Time (Protime)PT. 18.2 SECONDS (11.7-14.9)
--- NOTE | 2023-05-15 08:34 | PN.HOSP_ITS ---
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) Atherosclerotic heart disease of [place] coronary artery without angina pectoris (05/14/23) Atrioventricular block, 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) Cellulitis of right lower limb (05/14/23) Hypoxemia (05/14/23) Presence of cardiac pacemaker (05/14/23) Subjective Subjective Patient still has pain in his leg but overall feels better than he did yesterday, both legs still swollen but has some improvement in redness and right leg, denies shortness of breath Objective Data Objective Data Vital Signs: Vital Signs Temp Pulse Resp BP Pulse Ox O2 Del Method O2 Flow Rate 98.2 F 60 17 121/57 H 97 Room Air 2 05/15/23 03:33 05/15/23 06:15 05/15/23 03:33 05/15/23 03:33 05/15/23 06:15 05/15/23 06:15 05/14/23 21:52 Oxygen Flow Rate (L/min) 2 Oxygen Delivery Method Room Air Weight: 81 kg Body Mass Index (BMI) 27.9 Intake & Output: Intake and Output for Last 24 Hours 05/13/23 05/14/23 05/15/23 23:59 23:59 23:59 Intake Total 2140 / 2140 50 / 50 Output Total 400 / 400 Balance 2140 / 2140 -350 / -350 Lab / Micro Data 05/15/23 05:17 05/15/23 05:17 Labs: Laboratory Results - last 24 hr 05/14/23 12:55: WBC 7.0, RBC 2.84 L, Hgb 9.3 L, Hct 29.3 L, MCV 103.2 H, MCH 32.7 H, MCHC 31.7 L, RDW Std Deviation 83.3 H, RDW Coeff of Luis Alberto 22.2 H, Plt Count 399, MPV 10.7, Immature Gran % (Auto) 1.600 H, Neut % (Auto) 89.7 H, Lymph % (Auto) 5.6 L, [place] % (Auto) 2.7, Eos % (Auto) 0.0, Baso % (Auto) 0.4, Absolute Neuts (auto) 6.2, Absolute Lymphs (auto) 0.39 L, Nucleated RBC % 0.4, Differential Comment SCANNED, Polychromasia RARE, Anisocytosis 2+, Macrocytosis 1+, PT 18.6 H, INR 1.5, APTT 30.3, Sodium 136, Potassium 4.5, Chloride 96 L, Carbon Dioxide 35.0 H, Anion Gap 5, BUN 31 H, Creatinine 1.17, Estim Creat Clear Calc 41.59, Est GFR (MDRD) Af Amer 76, Est GFR (MDRD) Non-Af 63, BUN/Creatinine Ratio 26.5 H, Glucose 252 H, Lactic Acid 3.8 H*, Calcium 8.4 L, Total Bilirubin 1.20 H, AST 20, ALT 51, Alkaline Phosphatase 92, Troponin I High Sens 111 H, B- Natriuretic Peptide 972.1 H, Total Protein 5.4 L, Albumin 2.7 L, Globulin 2.7, Albumin/Globulin Ratio 1.0 05/14/23 17:11: Lactic Acid 2.4 H* 05/14/23 22:13: POC Glucose 171 H 05/15/23 05:17: WBC 8.4, RBC 2.78 L, Hgb 9.2 L, Hct 29.0 L, MCV 104.3 H, MCH 33.1 H, MCHC 31.7 L, RDW Std Deviation 85.3 H, RDW Coeff of Luis Alberto 22.8 H, Plt Count 321, MPV 11.4, Immature Gran % (Auto) 1.400 H, Neut % (Auto) 89.8 H, Lymph % (Auto) 6.2 L, [place] % (Auto) 1.8, Eos % (Auto) 0.2, Baso % (Auto) 0.6, Absolute Neuts (auto) 7.5, Absolute Lymphs (auto) 0.52 L, Nucleated RBC % 0.4, Platelet Estimate ADEQUATE, Polychromasia 1+, Macrocytosis 1+, PT 18.2 H, INR 1.5, Sodium 138, Potassium 4.1, Chloride 102, Carbon Dioxide 34.0 H, Anion Gap 2 L, BUN 28 H , Creatinine 0.93, Estim Creat Clear Calc 52.32, Est GFR (MDRD) Af Amer 99, Est GFR (MDRD) Non-Af 81, BUN/Creatinine Ratio 30.0 H, Glucose 112 H, Calcium 8.1 L, Magnesium 1.9, Total Bilirubin 1.50 H, AST 22, ALT 46, Alkaline Phosphatase 81, Total Protein 5.0 L, Albumin 2.4 L, Globulin 2.6, Albumin/Globulin Ratio 0.9, TSH 0.61, Digoxin 1.39 05/15/23 06:11: POC Glucose 108 H Radiography Diagnostic Testing: Radiology Impression Venous Doppler Study 05/14/23 12:29 Interpretation Summary There is no evidence of right lower extremity deep vein thrombosis. Dilated right popliteal vein to 2.14 x 2.17 cm in diameter Previously surgically harvested right great saphenous vein Pulsatile venous flow was noted throughout suggestive of proximal venous hypertension or obstruction. Clinical correlation would be appropriate. Ordering Physician: Pedro Diaz Performed By: Tigist Brody, T Chest X-Ray 05/14/23 13:34 IMPRESSION: Poor inspiratory effort. Findings in keeping with CHF. Electronically Signed: Demetri Castillo MD at 13:59 EDT Reading Location ID and State: [address] [place] [address] , Service support , Rhythm Strip Rhythm Strip: vent pacing Rate: 60 Ectopy: None Physical Exam Narrative General: Alert, oriented, no apparent distress HEENT: Atraumatic, normocephalic Eyes: Anicteric, normal conjunctiva, extraocular movements grossly intact Neck: Supple Respiratory: Somewhat diminished bilaterally, normal respiratory effort Cardiovascular: Regular rate and rhythm GI: Soft, nontender, nondistended Extremities: 2-3+ bilateral lower extremity edema Musculoskeletal: Moving all extremities Neuro: No overt focal neurological deficits Skin: Erythema on right leg improving Psych: Cooperative Assessment & Plan Assessment/Plan (1) Sepsis: (2) Hypoxemia: (3) CMML (chronic myelomonocytic leukemia): (4) Cellulitis of right lower leg: (5) Complete heart block: (6) Pacemaker: (7) Coronary artery disease: PLAN: Plan #Sepsis 2/2 likely RLE cellulitis -Per verbal checkout from ED physician pt had SBP in the 80's and lactic acid resulted at 3.8 with left shift on WBC and likely source of RLE -Preliminary results of right lower extremity negative for DVT, presumably cellulitis -Bld cx -2L IVF ordered and BP improved, not given further fluids d/t concomitant concern for fluid overload -Broad spectrum abx -Trend lactic -05/15: Lactic improved and blood cultures growing gram-negative rods 2 out of 2, await speciation, continue broad-spectrum antibiotics at this time. Nothing present on leg to culture at this time #Acute hypoxia?resolved -Unclear etiology, there is unclear if it was fluid overload based on BNP of 972 and chest x-ray appeared congested with lower extremity edema however he improved with antibiotics, fluids and 2 L of O2 -Chest x-ray was poor inspiration -We will obtain echocardiogram -I's and O's, daily weights -05/15: Doing well on room air now that patient is doing better clinically #Elevated lactic acid -as above -05/15: Down trended with fluids and antibiotics #History of coronary artery disease/pacemaker -CABG x4 2 years ago -Pacemaker last fall -Continue statin and aspirin #CMML -F/w Dr. Dozier, chemo qmonth #Atrial fibrillation -Per history -Patient on digoxin, metoprolol, Xarelto -Continue Xarelto and metoprolol as blood pressure allows -We will check digoxin level -Digoxin level 1.39, likely higher than patient requires and additionally heart rate fairly slow, continue metoprolol and will hold digoxin at this time, may need adjustment in dosing ultimately if still necessary #Hyperglycemia -No known history of diabetes but glucose was 252 on BMP in the ED -May be secondary to infection, will add glucose checks and sliding scale -05/15: Glucose improved with treatment of underlying infection, glucose remained stable, DC glucose checks #DANE versus CKD stage IIIb -No baseline, unclear if this is elevated for him however BUN was somewhat up 31 -Trend BMP -Patient received IVF -05/15: Kidney function improving with IVF, continue supportive care, still unclear DANE versus CKD, trend BMP #Microcytic anemia -Unclear baseline, monitor for signs or symptoms of bleeding -Continue oral iron supplementation -Daily CBC -05/15: Hemoglobin virtually unchanged today, continue present management, continue Xarelto #Hypothyroidism -Continue Synthroid #DVT ppx: [place] Mary Prather MD Time spent in the patient's overall evaluation,decision-making process, review of diagnostic data, adjustment of management, discussion with other providers, nursing nursing and ancillary staff involved in patient's care documentation, 37 Minutes Charges/Coding Visit Charges Inpatient E&M: 02977 Subs Hosp L2
[2023-05-15] MEDS: Metoprolol Tartrate 25 MG Tablet 12.5 MG PO (09:27)
[2023-05-15] MEDS: Aspirin E.C. 81 MG Tablet PO (09:27)
[2023-05-15] MEDS: Ferrous Sulfate 325 MG Tablet PO ×3 (09:27→18:08)
--- NOTE | 2023-05-15 10:05 | CASEMGMT ---
Discharge Planning Patient resides at [facility] and wishes to return. Updates sent via [employer]. Asked if precert will be needed. Awaiting response. Almita Mccartney, Discharge Planning Asst.
[2023-05-15] MEDS: Magnesium Sulfate 4gm/100mL 4 GM/100 ML IV.SOLN. IV (11:40)
[2023-05-15 12:04] LABS: Bedside Glucose 147 mg/dL (74-106)
--- NOTE | 2023-05-15 14:10 | CHAPLAIN ---
Type of Pastoral Visit _x__ Initial Visit ___ Follow-up Visit ___ On-call Visit ___ General Patient Visit ___ Spiritual Assessment ___ Family Conference ___ Bereavement ___ Rapid Response ___ Code Blue ___ Other (describe below) Pastoral Care Referral From _x__ Patient ___ Family ___ Nurse ___ Physician ___ Media Strategist ___ Licensed Real Estate Broker ___ Other (describe below) Sacrament/Intervention _x__ Active listening ___ Anointing ___ Pentecostal ___ Bereavement ___ Communion ___ Melissa exploration ___ _x__ Life review _x__ Prayer ___ Reconciliation ___ Sacrament of Sick _x__ Supportive presence ___ Wedding ___ Other (describe below) Pastoral Comments patient is resting in bed; patient is given opportunity and time to discuss his need for admission, how he is coping with this, and for some life review; pt expresses gratitude for time given, concern, and for a prayer
--- NOTE | 2023-05-15 15:29 | CASEMGMT ---
GARTH spoke with patient and he confirmed his plan is to return to [facility]. Patient said he should have transportation back depending on the time. Plan: d/c back to [facility]. Bryanna CALDERÓN
[2023-05-15] MEDS: Rivaroxaban 20 MG Tablet PO (18:09)
[2023-05-15] MEDS: Acetaminophen 325 MG Tablet 650 MG PO (18:09)
[2023-05-15] MEDS: Atorvastatin Calcium 20 MG Tablet PO (21:06)
[2023-05-16] VITALS (7 sets, daily range): BP systolic 107–128; BP diastolic 48–78; PULSE 59–61; RESP 18–20; TEMP 36.4–36.9; O2SAT 88–95; BMI 27.8
[2023-05-16] MEDS: Levothyroxine 112 MCG Tablet PO (05:23)
[2023-05-16 06:23] LABS: Absolute Lymphocyte Count 0.54 X10^3/uL (0.83-4.51); Absolute Neutrophil Count 6.1 X10^3/uL (2.0-7.7); Basophil# 0.03 X10^3/uL; Basophil% 0.4 % (0-1); Eosinophil# 0.09 X10^3/uL; Eosinophils% 1.3 % (0-5); Hematocrit 27.3 % (40-54); Hemoglobin 8.8 g/dL (13.0-16.5); Lymphocyte # 0.54 X10^3/ul (0.83-4.51); Lymphocyte % 7.7 % (19-41); Mean Corp Hgb Conc 32.2 g/dL (32-36); Mean Corpuscular Volume 105.4 fL (80-94); Mean Platelet Vol. 11.2 fl (6.2-12.0); Monocyte# 0.18 X10^3/uL; Monocyte% 2.6 % (0-10); NRBC Flagged by Analyzer 0 % (0-5); Neutrophil # 6.12 X10^3/uL (2.7-7.7); Neutrophil % 86.7 % (47-70); POSITIVE DIFFERENTIAL YES; POSITIVE MORPHOLOGY YES; Platelet Count 253 K/mm3 (150-450); RBC Distribution Width CV 22.3 % (11.6-14.6); RBC Distribution Width SD 86.7 fl (35.1-43.9); Red Blood Count 2.59 M/mm3 (4.6-6.2); White Blood Count 7.1 K/mm3 (4.4-11.0)
[2023-05-16 06:36] LABS: Differential Indicated SCAN CRITERIA MET
[2023-05-16 06:58] LABS: Anisocytosis 2+; Differential Comment SCANNED; Macrocytosis 1+
[2023-05-16 07:06] LABS: ALB/GLOB Ratio 0.8 RATIO (0.9-2.4); AST(SGOT) 18 U/L (15-37); Alanine Aminotransfer ALT/SGPT 42 U/L (16-61); Albumin, Serum 2.2 g/dL (3.2-5.0); Alkaline Phosphatase 88 U/L (45-117); Anion Gap 2 (5-15); BUN 27 mg/dL (7-18); BUN/Creat Ratio 28.7 RATIO (10-20); Calcium,Total 8.2 mg/dL (8.5-10.1); Chloride 102 mmol/L (98-107); Creatinine, Serum 0.94 mg/dL (0.70-1.30); EST Glomerular Filtration Rate 81 mL/min (>60); Est Glom Filt Rate - Afr Amer 98 mL/min (>60); Estimated Creatinine Clearance 51.76 ml/min; Globulin 2.8 g/dL (2.2-4.2); Glucose 133 mg/dL (74-106); Potassium 3.8 mmol/L (3.5-5.1); Sodium Level 137 mmol/L (136-145)
[2023-05-16] MEDS: Ferrous Sulfate 325 MG Tablet PO (08:13)
[2023-05-16] MEDS: Aspirin E.C. 81 MG Tablet PO (08:13)
--- NOTE | 2023-05-16 09:09 | PN.HOSP_ITS ---
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) Atherosclerotic heart disease of [place] coronary artery without angina pectoris (05/14/23) Atrioventricular block, 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) Cellulitis of right lower limb (05/14/23) Hypoxemia (05/14/23) Presence of cardiac pacemaker (05/14/23) Objective Data Objective Data Vital Signs: Vital Signs Temp Pulse Resp BP Pulse Ox O2 Del Method O2 Flow Rate 98.2 F 59 L 20 H 107/78 94 Nasal Cannula 2 05/16/23 08:14 05/16/23 08:14 05/16/23 08:14 05/16/23 08:14 05/16/23 08:14 05/16/23 08:14 05/16/23 08:14 Oxygen Flow Rate (L/min) 2 Oxygen Delivery Method Nasal Cannula Weight: 178 lb 2.136 oz Body Mass Index (BMI) 27.8 Intake & Output: Intake and Output for Last 24 Hours 05/14/23 05/15/23 05/16/23 23:59 23:59 23:59 Intake Total 2140 / 2140 1440 / 1440 50 / 50 Output Total 1100 / 1100 400 / 400 Balance 2140 / 2140 340 / 340 -350 / -350 Lab / Micro Data 05/16/23 05:50 05/16/23 05:50 Labs: Laboratory Results - last 24 hr 05/15/23 11:45: POC Glucose 147 H 05/16/23 05:50: WBC 7.1, RBC 2.59 L, Hgb 8.8 L, Hct 27.3 L, MCV 105.4 H, MCH 34.0 H, MCHC 32.2, RDW Std Deviation 86.7 H, RDW Coeff of Luis Alberto 22.3 H, Plt Count 253, MPV 11.2, Immature Gran % (Auto) 1.300 H, Neut % (Auto) 86.7 H, Lymph % (Auto) 7.7 L, [place] % (Auto) 2.6, Eos % (Auto) 1.3, Baso % (Auto) 0.4, Absolute Neuts (auto) 6.1, Absolute Lymphs (auto) 0.54 L, Nucleated RBC % 0, Differential Comment SCANNED, Anisocytosis 2+, Macrocytosis 1+ Sodium 137, Potassium 3.8, Chloride 102, Carbon Dioxide 33.0 H, Anion Gap 2 L, BUN 27 H, Creatinine 0.94, Estim Creat Clear Calc 51.76, Est GFR (MDRD) Af Amer 98, Est GFR (MDRD) Non-Af 81, BUN/Creatinine Ratio 28.7 H, Glucose 133 H, Calcium 8.2 L, Total Bilirubin 0.90, AST 18, ALT 42, Alkaline Phosphatase 88, Total Protein 5.0 L, Albumin 2.2 L, Globulin 2.8, Albumin/Globulin Ratio 0.8 L Micro: Microbiology 05/14/23 12:55 Blood Culture (Wb) - Arm Right Blood Culture - Preliminary Gram negative siria 05/14/23 13:30 Blood Culture (Wb) - Arm Right Blood Culture - Preliminary Gram negative siria Radiography Diagnostic Testing: Radiology Impression Echocardiogram 05/14/23 17:04 Interpretation Summary The estimated ejection fraction is 55-60 %. Unable to assess diastolic dysfunction. Trivial mitral valve insufficiency. Mild aortic stenosis. Ordering Physician: Mary Prather Referring Physician: NO PCP GIVEN Performed By: [place] RCS Rhythm Strip Rhythm Strip: vent pacing Rate: 60 Ectopy: None Physical Exam Narrative Patient is mildly frustrated because of right lower extremity cellulitis not improving as per his expectation but improving very slowly. Low immune tolerance/immunocompromised host. No fever. GNR in blood culture. Physical exam General: Alert, Oriented x3, Cooperative HEENT: Atraumatic, PERRLA, EOMI, Normocephalic Oral: No Gingival or Mucosal Lesions/ Ulcerations Neck: Supple, No JVD, Negative Carotid Bruits Lungs: Air entry diminished in bilateral lung bases. No crepitation/rhonchi Cardiovascular: Paced rhythm, Normal S1, Normal S2, No murmurs Abdomen: Bowel Sounds Present, Soft, Non Tender, Non-Distended : No renal angle tenderness. No suprapubic tenderness. Extremities: Bilateral lower extremity edema/lymphedema right more than left., Capillary Refill Less than 3 Seconds Skin: Right arm sutured wound after removal of port. Had clot. Musculoskeletal: RLE edematous, erythematous mildly tender in right lower lobe. Split the skin in right trevizo gradually healing. No obvious purulent drainage/exudate or weeping. ROM restricted at right knee hip and ankle joint. Status post right ankle surgery in the past. Neurological: Cranial nerves II-XII grossly intact, DTR 2+/4 and Symmetrical, Neuro grossly intact Psych/Mental Status: Flat affect. Assessment & Plan Assessment/Plan (1) Sepsis: QUALIFIERS: Sepsis type: sepsis due to unspecified organism Sepsis acute organ dysfunction status: with acute organ dysfunction Severe sepsis acute organ dysfunction type: unspecified Severe sepsis shock status: without septic shock Qualified Code(s): A41.9 - Sepsis, unspecified organism; R65.20 - Severe sepsis without septic shock (2) Cellulitis of right lower leg: PLAN: Plan #Sepsis 2/2 likely RLE cellulitis The patient presented with sepsis with clinical indicators of high fever temperature 103.5 ?F, tachycardia, tachypnea, mild hypoxia 83% on RA due to cellulitis/soft tissue infection in immunocompromised host with last chemotherapy on the with acute sepsis-related organ dysfunction as evidenced by fluid responsive hypotension, BP in 80s and lactic acidosis 3.8. She was managed as per sepsis protocol and full fluid was not given due to concern for fluid overload as chest x-ray showed congestion. -05/16: Lactic acidosis improved and blood cultures growing gram-negative rods 2 out of 2, await speciation, continue broad-spectrum antibiotics at this time. No open ulcer or drainage for culture in the legs. #Acute hypoxia?resolved -Unclear etiology, there is unclear if it was fluid overload based on BNP of 972 and chest x-ray appeared congested with lower extremity edema however he improved with antibiotics, fluids and 2 L of O2 -Chest x-ray was poor inspiration -We will obtain echocardiogram -I's and O's, daily weights 05/16: Hypoxia resolved. On ambient air. #Elevated lactic acid -as above -05/16: Acidosis improved. 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 # CKD stage IIIa -No baseline, unclear if this is elevated for him however BUN was somewhat up 31 -Trend BMP -Patient received IVF -05/16: Kidney function improving with IVF, patient does not meet criteria for DANE. Does not have CKD stage IIIb but most likely CKD stage IIIa #Macrocytic anemia -Unclear baseline, monitor for signs or symptoms of bleeding -Continue oral iron supplementation -Daily CBC -05/16: Hemoglobin not big change, continue Xarelto. Folic acid started. #Hypothyroidism -Continue Synthroid #DVT ppx: Xarelto Charges/Coding Visit Charges Inpatient E&M: 60465 Subs Hosp L2
[2023-05-16 09:14] LABS: Hemoglobin A1c 6.9 % (3.8-5.6)
[2023-05-16 09:58] LABS: Vancomycin, Trough Level 14.3 ug/mL (5.0-15.0)
--- NOTE | 2023-05-16 10:16 | PHA.PHARE_ITS ---
Consult Antibiotic Management Pharmacy has been consulted to manage selected antiobiotic: Vancomycin Type of Intervention Type of Consult: Follow-up Suspected Infection Suspected Infection: Skin/Soft tissue and Bacteremia Labs Labs: Sodium 137 mmol/L (136-145) 05/16/23 05:50 Potassium 3.8 mmol/L (3.5-5.1) 05/16/23 05:50 Chloride 102 mmol/L (98-107) 05/16/23 05:50 Carbon Dioxide 33.0 mmol/L (21.0-32.0) H 05/16/23 05:50 Anion Gap 2 (5-15) L 05/16/23 05:50 BUN 27 mg/dL (7-18) H 05/16/23 05:50 Creatinine 0.94 mg/dL (0.70-1.30) 05/16/23 05:50 Est GFR (MDRD) Af Amer 98 mL/min (>60) 05/16/23 05:50 Est GFR (MDRD) Non-Af 81 mL/min (>60) 05/16/23 05:50 BUN/Creatinine Ratio 28.7 RATIO (10-20) H 05/16/23 05:50 Glucose 133 mg/dL (74-106) H 05/16/23 05:50 Vancomycin Trough 14.3 ug/mL (5.0-15.0) 05/16/23 09:05 Microbiology Microbiology: Microbiology 05/14/23 12:55 Blood Culture (Wb) - Arm Right Blood Culture - Preliminary Gram negative siria 05/14/23 13:30 Blood Culture (Wb) - Arm Right Blood Culture - Preliminary Gram negative siria Goal Trough Goal Trough: 15-20 mcg/mL Pharmacy Plan for Drug Dosing Pharmacy Plan for Drug Dosing: VANCOMYCIN LEVEL RECEIVED Current Vancomycin Dose: 750MG Q12 Number of Doses Received: 3 Vancomycin Level: 14.3 MG/DL Hours Since Last Dose: 12 Renal Function: SCR 0.94 MG/DL, CRCL 51.8 ML/MIN Renal Function Trend: STABLE Lab/Micro: GNR IN BLOOD CX Vancomycin Plan/Comments: NO, SINCE LEVEL IS WITHIN 1MG/DL OF GOAL RANGE (15- 20MG/DL) WILL CONTINUE CURRENT DOSE AND GET A LEVEL IN 24 HOURS. IF LEVEL IS STILL SLIGHTLY SUBTHERAPEUTIC, WILL INCREASE DOSE TO 1000MG Q12. Pending Level: 05/17/23 @ 0900 Pharmacy Service will continue to monitor and adjust dosing as required.
[2023-05-16] MEDS: Folic Acid 1 MG Tablet PO (10:43)
[2023-05-16] MEDS: Furosemide 20 MG/2 ML VIAL IV (12:43)
[2023-05-16] MEDS: Acetaminophen 325 MG Tablet 650 MG PO (15:27)
[2023-05-16] MEDS: Rivaroxaban 20 MG Tablet PO (17:28)
[2023-05-16] MEDS: Atorvastatin Calcium 20 MG Tablet PO (21:00)
[2023-05-16] MEDS: Polyethylene Glycol 3350 17 GM PACKET PO (21:00)
[2023-05-16] MEDS: Senna/Docusate Sodium 1 Tablet 2 TABLET PO (21:00)
[2023-05-16] MEDS: Metoprolol Tartrate 25 MG Tablet 12.5 MG PO (21:00)
[2023-05-17] VITALS (10 sets, daily range): BP systolic 97–132; BP diastolic 39–72; PULSE 59–63; RESP 16–18; TEMP 36.2–36.9; O2SAT 90–92; BMI 28.6
[2023-05-17] MEDS: Levothyroxine 112 MCG Tablet PO (05:48)
[2023-05-17 06:36] LABS: Absolute Lymphocyte Count 0.51 X10^3/uL (0.83-4.51); Absolute Neutrophil Count 4.6 X10^3/uL (2.0-7.7); Basophil# 0.03 X10^3/uL; Basophil% 0.6 % (0-1); Eosinophil# 0.05 X10^3/uL; Eosinophils% 0.9 % (0-5); Hematocrit 27.1 % (40-54); Hemoglobin 8.7 g/dL (13.0-16.5); Lymphocyte # 0.51 X10^3/ul (0.83-4.51); Lymphocyte % 9.4 % (19-41); Mean Corp Hgb Conc 32.1 g/dL (32-36); Mean Corpuscular Hgb 33.2 pg (27.0-32.0); Mean Corpuscular Volume 103.4 fL (80-94); Monocyte# 0.15 X10^3/uL; Monocyte% 2.8 % (0-10); NRBC Flagged by Analyzer 0 % (0-5); Neutrophil # 4.58 X10^3/uL (2.7-7.7); Neutrophil % 84.8 % (47-70); POSITIVE DIFFERENTIAL YES; POSITIVE MORPHOLOGY YES; Platelet Count 238 K/mm3 (150-450); RBC Distribution Width CV 23.3 % (11.6-14.6); RBC Distribution Width SD 87.2 fl (35.1-43.9); Red Blood Count 2.62 M/mm3 (4.6-6.2); White Blood Count 5.4 K/mm3 (4.4-11.0)
[2023-05-17 06:47] LABS: Differential Indicated SCAN CRITERIA MET
[2023-05-17 06:56] LABS: Differential Comment SCANNED; Polychromasia RARE
[2023-05-17 06:57] LABS: Anisocytosis 3+; Macrocytosis 1+; Microcytosis 1+; Schistocytes RARE
[2023-05-17 08:01] LABS: ALB/GLOB Ratio 0.8 RATIO (0.9-2.4); AST(SGOT) 29 U/L (15-37); Alanine Aminotransfer ALT/SGPT 57 U/L (16-61); Albumin, Serum 2.1 g/dL (3.2-5.0); Alkaline Phosphatase 142 U/L (45-117); Anion Gap 2 (5-15); BUN 27 mg/dL (7-18); BUN/Creat Ratio 30.3 RATIO (10-20); Calcium,Total 8.2 mg/dL (8.5-10.1); Chloride 104 mmol/L (98-107); Creatinine, Serum 0.89 mg/dL (0.70-1.30); EST Glomerular Filtration Rate 86 mL/min (>60); Est Glom Filt Rate - Afr Amer 104 mL/min (>60); Estimated Creatinine Clearance 54.67 ml/min; Globulin 2.8 g/dL (2.2-4.2); Glucose 107 mg/dL (74-106); Potassium 4.2 mmol/L (3.5-5.1); Protein, Total 4.9 g/dL (6.4-8.2); Sodium Level 138 mmol/L (136-145)
[2023-05-17] MEDS: Senna/Docusate Sodium 1 Tablet 2 TABLET PO ×2 (09:09→21:00)
[2023-05-17] MEDS: Aspirin E.C. 81 MG Tablet PO (09:09)
[2023-05-17] MEDS: Metoprolol Tartrate 25 MG Tablet 12.5 MG PO (09:09)
[2023-05-17] MEDS: Ferrous Sulfate 325 MG Tablet PO (09:09)
[2023-05-17] MEDS: Folic Acid 1 MG Tablet PO (09:09)
[2023-05-17] MEDS: Polyethylene Glycol 3350 17 GM PACKET PO ×2 (09:09→21:00)
[2023-05-17 10:25] LABS: Vancomycin, Trough Level 15.3 ug/mL (5.0-15.0)
--- NOTE | 2023-05-17 12:49 | PCM.PN.HOSP ---
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) Atherosclerotic heart disease of [place] coronary artery without angina pectoris (05/14/23) Atrioventricular block, 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) Cellulitis of right lower limb (05/14/23) Hypoxemia (05/14/23) Severe sepsis without septic shock (05/14/23) Presence of cardiac pacemaker (05/14/23) Subjective Subjective Follow-up for complicated right lower extremity soft tissue infection/cellulitis Objective Data Objective Data Vital Signs: Vital Signs Temp Pulse Resp BP Pulse Ox O2 Del Method O2 Flow Rate 98.3 F 63 18 127/68 H 92 Room Air 2 05/17/23 09:02 05/17/23 09:09 05/17/23 09:02 05/17/23 09:02 05/17/23 09:02 05/17/23 09:53 05/16/23 12:42 Oxygen Flow Rate (L/min) 2 Oxygen Delivery Method Room Air Weight: 182 lb 15.739 oz Body Mass Index (BMI) 28.6 Intake & Output: Intake and Output for Last 24 Hours 05/15/23 05/16/23 05/17/23 23:59 23:59 23:59 Intake Total 1440 / 1440 1880 / 1880 200 / 200 Output Total 1100 / 1100 700 / 700 400 / 400 Balance 340 / 340 1180 / 1180 -200 / -200 Lab / Micro Data 05/17/23 05:40 05/17/23 05:40 Labs: Laboratory Results - last 24 hr 05/17/23 05:40: WBC 5.4, RBC 2.62 L, Hgb 8.7 L, Hct 27.1 L, MCV 103.4 H, MCH 33.2 H, MCHC 32.1, RDW Std Deviation 87.2 H, RDW Coeff of Luis Alberto 23.3 H, Plt Count 238, MPV 12.0, Immature Gran % (Auto) 1.500 H, Neut % (Auto) 84.8 H, Lymph % (Auto) 9.4 L, [place] % (Auto) 2.8, Eos % (Auto) 0.9, Baso % (Auto) 0.6, Absolute Neuts (auto) 4.6, Absolute Lymphs (auto) 0.51 L, Nucleated RBC % 0, Differential Comment SCANNED, Polychromasia RARE, Anisocytosis 3+, Microcytosis 1+, Macrocytosis 1+, Schistocytes RARE, Sodium 138, Potassium 4.2, Chloride 104, Carbon Dioxide 32.0, Anion Gap 2 L, BUN 27 H, Creatinine 0.89, Estim Creat Clear Calc 54.67, Est GFR (MDRD) Af Amer 104, Est GFR (MDRD) Non-Af 86, BUN/Creatinine Ratio 30.3 H, Glucose 107 H, Calcium 8.2 L, Total Bilirubin 1.20 H, AST 29, ALT 57, Alkaline Phosphatase 142 H, Total Protein 4.9 L, Albumin 2.1 L, Globulin 2.8, Albumin/Globulin Ratio 0.8 L, Folate 30.10 05/17/23 09:38: Vancomycin Trough 15.3 H Micro: Microbiology 05/14/23 13:30 Blood Culture (Wb) - Arm Right Blood Culture - Preliminary Gram negative siria 05/14/23 12:55 Blood Culture (Wb) - Arm Right Blood Culture - Preliminary Sphingobacterium multivorum Rhythm Strip Rhythm Strip: vent pacing Rate: 60 Ectopy: None Physical Exam Narrative Improvement in right lower extremity redness pain and swelling. No fever. 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 Physical exam General: Alert, Oriented x3, Cooperative HEENT: Atraumatic, PERRLA, EOMI, Normocephalic Oral: No Gingival or Mucosal Lesions/ Ulcerations Neck: Supple, No JVD, Negative Carotid Bruits Lungs: Air entry diminished in bilateral lung bases. No crepitation/rhonchi Cardiovascular: Paced rhythm, Normal S1, Normal S2, No murmurs Abdomen: Bowel Sounds Present, Soft, Non Tender, Non-Distended : No renal angle tenderness. No suprapubic tenderness. Extremities: Bilateral lower extremity edema/lymphedema right more than left., Capillary Refill Less than 3 Seconds Skin: Right arm sutured wound after removal of port. Had clot. Musculoskeletal: Significant improvement in RLE redness, swelling, induration and edema. Split the skin in right trevizo gradually healing. No obvious purulent drainage/exudate or weeping. ROM restricted at right knee hip and ankle joint. Status post right ankle surgery in the past. Neurological: Cranial nerves II-XII grossly intact, DTR 2+/4 and Symmetrical, Neuro grossly intact Psych/Mental Status: Flat affect. Assessment & Plan Assessment/Plan (1) Sepsis: QUALIFIERS: Sepsis type: sepsis due to unspecified organism Sepsis acute organ dysfunction status: with acute organ dysfunction Severe sepsis acute organ dysfunction type: unspecified Severe sepsis shock status: without septic shock Qualified Code(s): A41.9 - Sepsis, unspecified organism; R65.20 - Severe sepsis without septic shock (2) Cellulitis of right lower leg: PLAN: Plan #Sepsis 2/2 likely RLE cellulitis The patient presented with sepsis with clinical indicators of high fever temperature 103.5 ?F, tachycardia, tachypnea, mild hypoxia 83% on RA due to cellulitis/soft tissue infection in immunocompromised host with last chemotherapy on the with acute sepsis-related organ dysfunction as evidenced by fluid responsive hypotension, BP in 80s and lactic acidosis 3.8. She was managed as per sepsis protocol and full fluid was not given due to concern for fluid overload as chest x-ray showed congestion. -05/16: Lactic acidosis improved and blood cultures growing gram-negative rods 2 out of 2, await speciation, continue broad-spectrum antibiotics at this time. No open ulcer or drainage for culture in the legs. 05/17:Vancomycin discontinued as blood culture shows GNR, Sphingobacterium multivorum. Patient happy with the improvement of cellulitis. ID consult tomorrow AM for home antibiotic and possible discharge. Patient had right lower extremity saphenous vein harvested for CABG therefore has impaired venous and lymphatic drainage, prone for cellulitis. #Acute hypoxia?resolved -Unclear etiology, there is unclear if it was fluid overload based on BNP of 972 and chest x-ray appeared congested with lower extremity edema however he improved with antibiotics, fluids and 2 L of O2 -Chest x-ray was poor inspiration -We will obtain echocardiogram -I's and O's, daily weights 05/16: Hypoxia resolved. On ambient air. #Elevated lactic acid -as above -05/16: Acidosis improved. 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 # CKD stage IIIa -No baseline, unclear if this is elevated for him however BUN was somewhat up 31 -Trend BMP -Patient received IVF -05/16: Kidney function improving with IVF, patient does not meet criteria for DANE. Does not have CKD stage IIIb but most likely CKD stage IIIa #Macrocytic anemia -Unclear baseline, monitor for signs or symptoms of bleeding -Continue oral iron supplementation -Daily CBC -05/16: Hemoglobin not big change, continue Xarelto. Folic acid started. #Hypothyroidism -Continue Synthroid #DVT ppx: Xarelto Charges/Coding Visit Charges Inpatient E&M: 08604 Subs Hosp L2
[2023-05-17] MEDS: Rivaroxaban 20 MG Tablet PO (17:05)
[2023-05-17 19:07] LABS: Folate, Hemolysate Test > 620.0 ng/mL (Not Estab.); Folate, RBC (Hct) Test 26.7 % (37.5-51.0)
[2023-05-17] MEDS: Atorvastatin Calcium 20 MG Tablet PO (21:00)
[2023-05-18 02:45] VITALS: BP 144/53; PULSE 60; RESP 16; TEMP 36.4; O2SAT 94
[2023-05-18] MEDS: Levothyroxine 112 MCG Tablet PO (05:28)
[2023-05-18 06:30] LABS: Absolute Lymphocyte Count 0.54 X10^3/uL (0.83-4.51); Absolute Neutrophil Count 3.9 X10^3/uL (2.0-7.7); Basophil# 0.02 X10^3/uL; Basophil% 0.4 % (0-1); Eosinophil# 0.09 X10^3/uL; Eosinophils% 1.9 % (0-5); Hematocrit 27.2 % (40-54); Hemoglobin 8.7 g/dL (13.0-16.5); Lymphocyte # 0.54 X10^3/ul (0.83-4.51); Lymphocyte % 11.3 % (19-41); Mean Platelet Vol. 10.8 fl (6.2-12.0); Monocyte% 4.2 % (0-10); NRBC Flagged by Analyzer 0 % (0-5); Neutrophil # 3.86 X10^3/uL (2.7-7.7); Neutrophil % 80.3 % (47-70); POSITIVE DIFFERENTIAL YES; POSITIVE MORPHOLOGY YES; Platelet Count 216 K/mm3 (150-450); RBC Distribution Width CV 22.7 % (11.6-14.6); RBC Distribution Width SD 86.3 fl (35.1-43.9); Red Blood Count 2.64 M/mm3 (4.6-6.2); White Blood Count 4.8 K/mm3 (4.4-11.0)
[2023-05-18 06:31] LABS: Differential Indicated SCAN CRITERIA MET
[2023-05-18 06:46] LABS: Anisocytosis 2+; Macrocytosis 2+
[2023-05-18 07:00] LABS: ALB/GLOB Ratio 0.7 RATIO (0.9-2.4); AST(SGOT) 21 U/L (15-37); Alanine Aminotransfer ALT/SGPT 51 U/L (16-61); Albumin, Serum 2.1 g/dL (3.2-5.0); Alkaline Phosphatase 134 U/L (45-117); Anion Gap 3 (5-15); BUN 25 mg/dL (7-18); BUN/Creat Ratio 29.8 RATIO (10-20); Calcium,Total 8.2 mg/dL (8.5-10.1); Chloride 103 mmol/L (98-107); Creatinine, Serum 0.84 mg/dL (0.70-1.30); EST Glomerular Filtration Rate 92 mL/min (>60); Est Glom Filt Rate - Afr Amer 111 mL/min (>60); Estimated Creatinine Clearance 57.92 ml/min; Globulin 3.1 g/dL (2.2-4.2); Glucose 93 mg/dL (74-106); Potassium 3.8 mmol/L (3.5-5.1); Protein, Total 5.2 g/dL (6.4-8.2); Sodium Level 136 mmol/L (136-145)
[2023-05-18 08:00] VITALS: BMI 28.5
[2023-05-18] MEDS: Ferrous Sulfate 325 MG Tablet PO (08:10)
[2023-05-18] MEDS: Folic Acid 1 MG Tablet PO (08:10)
[2023-05-18] MEDS: Aspirin E.C. 81 MG Tablet PO (08:10)
--- NOTE | 2023-05-18 08:13 | PCM.DC ---
Discharge Instructions Diet Discharge Diet: No restrictions Activity Discharge Activity: Return to Normal Activity Weight Bearing Status: Weight bearing as tolerated Dressing / Incision Call your doctor if you observe: Fever of 101 or Higher, Coldness, Increased Pain, Numbness or Tingling, Change in Color, Inability to urinate, Inability to have a bowel movement, Shortness of breath, Dizziness, Fainting spells, Swelling in the ankles, Chest pain, Prolonged hiccupping, Increased palpitations (irregular heartbeat) and Calf discomfort Follow Up Care When: IN 2 WEEKS Test Results: Test results from this visit will be discussed in further detail at your follow-up appointment, if applicable. Discharge Plan Admission Admit Date/Time: 05/14/23 16:47 Primary Reason for Your Visit: RLE narciso with GNR Bacteremia Attending Provider: Marshal Rebolledo Primary Care Provider: Hamzah Pruitt Consulting Providers: Mary Prather; Homer Marsh Instructions Additional Instructions / Restrictions: Follow-up in outpatient wound clinic/lymphedema clinic in 2 weeks Discharge Orders/Prescriptions Prescriptions: New sennosides-docusate sodium [Stool Softener-Stimulant Laxat] 8.6-50 mg Tablet 2 tab PO BID PRN (Reason: constipation) 30 Days Qty: 120 0RF folic acid 1 mg Tablet 1 mg PO BREAKFAST 30 Days Qty: 30 2RF polyethylene glycol 3350 17 gram Powder In Packet 17 g PO DAILY 30 Days Qty: 30 0RF levofloxacin 500 mg tablet 500 mg PO DAILY 6 Days Qty: 6 0RF Continued levothyroxine [Synthroid] 112 mcg tablet 112 mcg PO DAILY furosemide [Lasix] 20 mg tablet 20 mg PO BID Patient Comments: 1 TAB IN THE AM AND 1 TAB QHS cyanocobalamin (vitamin B-12) 1,000 mcg capsule 1,000 mcg PO DAILY cholecalciferol (vitamin D3) 25 mcg (1,000 unit) tablet 25 mcg PO DAILY multivitamin Tablet 1 tab PO DAILY polyethylene glycol 3350 17 gram powder in packet 17 g PO DAILY PRN (Reason: constipation) aspirin 81 mg tablet,delayed release (DR/EC) 81 mg PO DAILY Xarelto 20 mg tablet 20 mg PO QPM Rx Instructions: must administer with evening meal digoxin 125 mcg (0.125 mg) tablet 0.125 mg PO DAILY metoprolol tartrate 25 mg tablet 12.5 mg PO BID Patient Comments: take 1/2 tablet by mouth every 12 hours atorvastatin 20 mg tablet 20 mg PO QHS Changed ferrous fumarate 325 mg (106 mg iron) tablet 325 mg PO DAILY 30 Days Qty: 0 0RF Rx Instructions: with meals Referrals / Follow Up: Hamzah Pruitt [Other] Homer Marsh MD [Med Staff - Active Staff] - Within 1 Month (as needed for cellulitis) NOT,DEFINED [Non-Staff] - Disposition Disposition (needs filled in before D/C Order can be placed): Assisted Living
[2023-05-18 08:45] VITALS: BP 128/79; PULSE 51; RESP 16; TEMP 36.6; O2SAT 95
[2023-05-18 08:46] LABS: Vitamin B12 341 pg/mL (211-911)
[2023-05-18] MEDS: 0.9% Saline Lock 10 ML Syringe IV (09:42)
--- NOTE | 2023-05-18 09:42 | DS.PCM_ITS ---
Providers Date of Admission: 05/14/23 Date of Discharge: 05/18/23 Primary Care Physician: Hamzah Pruitt Consultations 05/17/23 07:58 Consult: Infectious Disease Routine Consulting Provider: Homer Marsh Reason for Consult: GNR bactermia, RLE CELLULITIS, Atypial organism EMERGENT Consult: No MD Notified: Yes Date Notified: 05/17/23 Time Notified: 07:58 Method of Notification: Text Reason For Visit: SEPSIS, CELLULITIS, CHF, HYPOXEMIA, CMML Diagnosis Discharge Diagnosis (1) Sepsis: Status: Acute Code(s): A41.9 - Sepsis, unspecified organism Qualifiers: Sepsis acute organ dysfunction status: with acute organ dysfunction Sepsis type: sepsis due to unspecified organism Severe sepsis acute organ dysfunction type: unspecified Severe sepsis shock status: without septic shock Qualified Code(s): A41.9 - Sepsis, unspecified organism; R65.20 - Severe sepsis without septic shock (2) Cellulitis of right lower leg: Status: Acute Code(s): L03.115 - Cellulitis of right lower limb Plan #Sepsis 2/2 likely RLE cellulitis The patient presented with sepsis with clinical indicators of high fever temperature 103.5 ?F, tachycardia, tachypnea, mild hypoxia 83% on RA due to cellulitis/soft tissue infection in immunocompromised host with last chemotherapy on the with acute sepsis-related organ dysfunction as evidenced by fluid responsive hypotension, BP in 80s and lactic acidosis 3.8. She was managed as per sepsis protocol and full fluid was not given due to concern for fluid overload as chest x-ray showed congestion. -05/16: Lactic acidosis improved and blood cultures growing gram-negative rods 2 out of 2, await speciation, continue broad-spectrum antibiotics at this time. No open ulcer or drainage for culture in the legs. 05/17:Vancomycin discontinued as blood culture shows GNR, Sphingobacterium multivorum. Patient happy with the improvement of cellulitis. ID consult tomorrow AM for home antibiotic and possible discharge. Patient had right lower extremity saphenous vein harvested for CABG therefore has impaired venous and lymphatic drainage, prone for cellulitis. 05/18: Discussed with ID. Patient is just on Levaquin for 5 more days as prescribed by ID. Advised follow-up in outpatient wound/lymphedema clinic in 1 week. #Acute hypoxia?resolved -Unclear etiology, there is unclear if it was fluid overload based on BNP of 972 and chest x-ray appeared congested with lower extremity edema however he improved with antibiotics, fluids and 2 L of O2 -Chest x-ray was poor inspiration -We will obtain echocardiogram -I's and O's, daily weights 05/16: Hypoxia resolved. On ambient air. #Elevated lactic acid -as above -05/16: Acidosis improved. 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 # CKD stage IIIa -No baseline, unclear if this is elevated for him however BUN was somewhat up 31 -Trend BMP -Patient received IVF -05/16: Kidney function improving with IVF, patient does not meet criteria for DANE. Does not have CKD stage IIIb but most likely CKD stage IIIa 05/23: Creatinine 0.84. No DANE #Macrocytic anemia -Unclear baseline, monitor for signs or symptoms of bleeding -Continue oral iron supplementation -Daily CBC -05/16: Hemoglobin not big change, continue Xarelto. Folic acid started. 05/17: Iron supplement changed to every day. Continue folic acid. Prescriptions given. #Hypothyroidism -Continue Synthroid #DVT ppx: Xarelto Discharge medication reconciliation done. Discharge follow-up instructions completed. Discharge process discussed with the patient and all questions were answered to patient's satisfaction. Total time spent, exact 35 minutes on discharge meds reconciliation, examination, coordination of care with nurses and ancillary staff, review of imaging and blood test and discussion with the patient on follow-up instructions. Medications at Discharge Home Medications aspirin 81 mg tablet,delayed release 81 mg PO DAILY 04/09/23 cholecalciferol (vitamin D3) 25 mcg (1,000 unit) tablet 25 mcg PO DAILY 04/09/23 cyanocobalamin (vitamin B-12) 1,000 mcg capsule 1,000 mcg PO DAILY 04/09/23 furosemide 20 mg tablet (Lasix) 20 mg PO BID 04/09/23 levothyroxine 112 mcg tablet (Synthroid) 112 mcg PO DAILY 04/09/23 multivitamin 1 tab PO DAILY 04/09/23 polyethylene glycol 3350 17 gram oral powder packet 17 g PO DAILY PRN constipation 04/09/23 rivaroxaban 20 mg tablet (Xarelto) 20 mg PO QPM 04/09/23 atorvastatin 20 mg tablet 20 mg PO QHS 05/14/23 digoxin 125 mcg (0.125 mg) tablet 0.125 mg PO DAILY 05/14/23 metoprolol tartrate 25 mg tablet 12.5 mg PO BID 05/14/23 ferrous fumarate 325 mg (106 mg iron) tablet 325 mg PO DAILY 30 days #0 tabs 05/18/23 folic acid 1 mg tablet 1 mg PO BREAKFAST 30 days #30 tabs 05/18/23 levofloxacin 500 mg tablet 500 mg PO DAILY 6 days #6 tabs 05/18/23 polyethylene glycol 3350 17 gram oral powder packet 17 g PO DAILY 30 days #30 ea 05/18/23 sennosides 8.6 mg-docusate sodium 50 mg tablet (Stool Softener-Stimulant Laxative) 2 tab PO BID PRN constipation 30 days #120 tabs 05/18/23 Physical Exam Narrative Further improvement in right lower extremity redness pain and swelling more than 90%. No fever. 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 Physical exam General: Alert, Oriented x3, Cooperative HEENT: Atraumatic, PERRLA, EOMI, Normocephalic Oral: No Gingival or Mucosal Lesions/ Ulcerations Neck: Supple, No JVD, Negative Carotid Bruits Lungs: Air entry diminished in bilateral lung bases. No crepitation/rhonchi Cardiovascular: Paced rhythm, Normal S1, Normal S2, systolic murmur right second ICS Abdomen: Bowel Sounds Present, Soft, Non Tender, Non-Distended : No renal angle tenderness. No suprapubic tenderness. Extremities: Bilateral lower extremity edema/lymphedema right more than left much improved, Capillary Refill Less than 3 Seconds Skin: Right arm sutured wound after removal of port. Had clot. Healing. Musculoskeletal: Significant improvement in RLE redness, swelling, induration and edema. Split skin in right trevizo gradually healing. No obvious purulent drainage/exudate or weeping. ROM restricted at right knee hip and ankle joint. Status post right ankle surgery in the past. Neurological: Cranial nerves II-XII grossly intact, DTR 2+/4 and Symmetrical, Neuro grossly intact Psych/Mental Status: Flat affect. Weight / BMI Weight Weight: 182 lb 15.739 oz Body Mass Index (BMI) 28.6 ABG / Lab / Microbiology Data 05/18/23 05:31 05/18/23 05:31 Laboratory: Laboratory Results - last 24 hr 05/16/23 05:50: RBC Folate Hemolysate > 620.0, RBC Folate > 2322, Hematocrit 26.7 L 05/17/23 05:40: Vitamin B12 341 05/17/23 09:38: Vancomycin Trough 15.3 H 05/18/23 05:31: WBC 4.8, RBC 2.64 L, Hgb 8.7 L, Hct 27.2 L, MCV 103.0 H, MCH 33.0 H, MCHC 32.0, RDW Std Deviation 86.3 H, RDW Coeff of Luis Alberto 22.7 H, Plt Count 216, MPV 10.8, Immature Gran % (Auto) 1.900 H, Neut % (Auto) 80.3 H, Lymph % (Auto) 11.3 L, [place] % (Auto) 4.2, Eos % (Auto) 1.9, Baso % (Auto) 0.4, Absolute Neuts (auto) 3.9, Absolute Lymphs (auto) 0.54 L, Nucleated RBC % 0, Anisocytosis 2+, Macrocytosis 2+, Sodium 136, Potassium 3.8, Chloride 103, Carbon Dioxide 30.0, Anion Gap 3 L, BUN 25 H, Creatinine 0.84, Estim Creat Clear Calc 57.92, Est GFR (MDRD) Af Amer 111, Est GFR (MDRD) Non-Af 92, BUN/Creatinine Ratio 29.8 H, Glucose 93, Calcium 8.2 L, Total Bilirubin 1.50 H, AST 21, ALT 51, Alkaline Phosphatase 134 H, Total Protein 5.2 L, Albumin 2.1 L, Globulin 3.1, Albumin/Globulin Ratio 0.7 L Microbiology: Microbiology 05/14/23 13:30 Blood Culture (Wb) - Arm Right Blood Culture - Preliminary Gram negative siria 05/14/23 12:55 Blood Culture (Wb) - Arm Right Blood Culture - Preliminary Sphingobacterium multivorum D/C Instructions Discharge Diet: No restrictions Weight Bearing Status: Weight bearing as tolerated Call your doctor if you observe: Fever of 101 or Higher, Coldness, Increased Pain, Numbness or Tingling, Change in Color, Inability to urinate, Inability to have a bowel movement, Shortness of breath, Dizziness, Fainting spells, Swelling in the ankles, Chest pain, Prolonged hiccupping, Increased palpitations (irregular heartbeat) and Calf discomfort When: IN 2 WEEKS Meaningful Use Info Meaningful Use Diagnoses (Choose all that apply): None applicable Discharge Plan Admission Admit Date/Time: 05/14/23 16:47 Primary Reason for Your Visit: ELMIRAKarey solokenjihandash with GNR Bacteremia Attending Provider: Marshal Rebolledo Primary Care Provider: Hamzah Pruitt Consulting Providers: Mary Prather; Homer Marsh Instructions Additional Instructions / Restrictions: Follow-up in outpatient wound clinic/lymphedema clinic in 2 weeks Discharge Orders/Prescriptions Prescriptions: New sennosides-docusate sodium [Stool Softener-Stimulant Laxat] 8.6-50 mg Tablet 2 tab PO BID PRN (Reason: constipation) 30 Days Qty: 120 0RF folic acid 1 mg Tablet 1 mg PO BREAKFAST 30 Days Qty: 30 2RF polyethylene glycol 3350 17 gram Powder In Packet 17 g PO DAILY 30 Days Qty: 30 0RF levofloxacin 500 mg tablet 500 mg PO DAILY 6 Days Qty: 6 0RF Continued levothyroxine [Synthroid] 112 mcg tablet 112 mcg PO DAILY furosemide [Lasix] 20 mg tablet 20 mg PO BID Patient Comments: 1 TAB IN THE AM AND 1 TAB QHS cyanocobalamin (vitamin B-12) 1,000 mcg capsule 1,000 mcg PO DAILY cholecalciferol (vitamin D3) 25 mcg (1,000 unit) tablet 25 mcg PO DAILY multivitamin Tablet 1 tab PO DAILY polyethylene glycol 3350 17 gram powder in packet 17 g PO DAILY PRN (Reason: constipation) aspirin 81 mg tablet,delayed release (DR/EC) 81 mg PO DAILY Xarelto 20 mg tablet 20 mg PO QPM Rx Instructions: must administer with evening meal digoxin 125 mcg (0.125 mg) tablet 0.125 mg PO DAILY metoprolol tartrate 25 mg tablet 12.5 mg PO BID Patient Comments: take 1/2 tablet by mouth every 12 hours atorvastatin 20 mg tablet 20 mg PO QHS Changed ferrous fumarate 325 mg (106 mg iron) tablet 325 mg PO DAILY 30 Days Qty: 0 0RF Rx Instructions: with meals Referrals / Follow Up: Hamzah Pruitt [Other] Homer Marsh MD [Med Staff - Active Staff] - Within 1 Month (as needed for cellulitis) NOT,DEFINED [Non-Staff] - Disposition Disposition (needs filled in before D/C Order can be placed): Assisted Living Charges/Coding Visit Charges Inpatient E&M: 23073 Disch Hosp >30min
[2023-05-18 09:43] VITALS: BP 130/81; PULSE 52
[2023-05-18] MEDS: Senna/Docusate Sodium 1 Tablet 2 TABLET PO (09:44)
[2023-05-18] MEDS: Polyethylene Glycol 3350 17 GM PACKET PO (09:45)
--- NOTE | 2023-05-18 09:59 | CASEMGMT ---
Discharge Planning Updates sent via [facility]. Informed that he would return to [place] today. Almita Mccartney, Discharge Planning Asst.
--- NOTE | 2023-05-18 10:14 | CASEMGMT ---
Patient is ready for discharge back to [place] assisted living. GARTH sent a message to [place] at [place] via [employer]. GARTH spoke with patient and he has his own transportation back. Plan: d/c back to [place] assisted living. Bryanna CALDERÓN
--- NOTE | 2023-05-18 11:45 | NURSING ---
05/18/23@0930- Updated Stephany at [facility].
[2023-05-18 14:45] VITALS: BP 123/75; PULSE 53; RESP 14; TEMP 36.5; O2SAT 96
--- NOTE | 2023-05-18 15:03 | CON.PCM.ID_ITS ---
Assessment & Plan Assessment/Plan (1) Bacteremia due to Gram-negative bacteria: PLAN: 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 QTC here was 440. Thank you, will follow as needed, d/w Dr. Rebolledo HPI Consult Data Date of Consult: 05/18/23 HPI Narrative Reason for Consultation: bacteremia HPI Narrative: SRINI LOZADA, is a 87 M who presented 05/14 with 2-3 days progressive RLE pain, redness, and swelling. Pain was moderate. No known inciting events. Developed associated shaking chills and fever. Came to ED, admitted on broad spectrum abx including zosyn. Now feeling much better, leg less red/sore. No further fever. Full ROS performed and neg except as noted above. [facility] Medical History (Updated 05/18/23 @ 15:[address] Homer Marsh MD) Atheroembolism of foot Benign essential HTN Cerebral vascular accident (~08/2022) CMML (chronic myelomonocytic leukemia) Complete heart block Coronary artery disease (~09/2022) HLD (hyperlipidemia) Hypothyroidism Lumbar stenosis Myasthenia gravis Nocturnal hypoxemia Osteoarthritis Pacemaker (~09/2022) Home Medications aspirin 81 mg tablet,delayed release 81 mg PO DAILY 04/09/23 [History Last Taken 05/14/23] cholecalciferol (vitamin D3) 25 mcg (1,000 unit) tablet 25 mcg PO DAILY 04/09/23 [History Last Taken 05/14/23] cyanocobalamin (vitamin B-12) 1,000 mcg capsule 1,000 mcg PO DAILY 04/09/23 [History Last Taken 05/14/23] furosemide 20 mg tablet (Lasix) 20 mg PO BID 04/09/23 [History Last Taken 05/14/23] levothyroxine 112 mcg tablet (Synthroid) 112 mcg PO DAILY 04/09/23 [History Last Taken 05/14/23] multivitamin 1 tab PO DAILY 04/09/23 [History Last Taken 05/14/23] polyethylene glycol 3350 17 gram oral powder packet 17 g PO DAILY PRN constipation 04/09/23 [History Last Taken Unknown] rivaroxaban 20 mg tablet (Xarelto) 20 mg PO QPM 04/09/23 [History Last Taken 05/13/23] atorvastatin 20 mg tablet 20 mg PO QHS 05/14/23 [History Last Taken 05/13/23] digoxin 125 mcg (0.125 mg) tablet 0.125 mg PO DAILY 05/14/23 [History Last Taken 05/14/23] metoprolol tartrate 25 mg tablet 12.5 mg PO BID 05/14/23 [History Last Taken 05/14/23] ferrous fumarate 325 mg (106 mg iron) tablet 325 mg PO DAILY 30 days #0 tabs 05/18/23 [Rx Last Taken 05/14/23] folic acid 1 mg tablet 1 mg PO BREAKFAST 30 days #30 tabs 05/18/23 [Rx Last Danial en Unknown] levofloxacin 500 mg tablet 500 mg PO DAILY 6 days #6 tabs 05/18/23 [Rx Last Taken Unknown] polyethylene glycol 3350 17 gram oral powder packet 17 g PO DAILY 30 days #30 ea 05/18/23 [Rx Last Taken Unknown] sennosides 8.6 mg-docusate sodium 50 mg tablet (Stool Softener-Stimulant Laxative) 2 tab PO BID PRN constipation 30 days #120 tabs 05/18/23 [Rx Last Taken Unknown] Allergy/AdvReac Type Severity Reaction Status Date / Time No Known Allergies Allergy Verified 05/14/23 12:20 Family History Mother Heart disease Father Heart disease Surgical History History of ankle surgery (~12/2020) History of arthroplasty of right shoulder (~2008) Hx of CABG (~07/2021) Social History Smoking Status: Former smoker how long ago did patient quit smokinyrs alcohol intake: current alcohol intake frequency: 0-2 drinks per day Alcohol ty pe: beer, wine and hard liquor details: 1-2 beers per week substance use type: does not use Physical Exam Const alert, oriented x3 and no apparent distress General Appearance: cooperative HEENT normocephalic and head/scalp atraumatic Eyes PERRL and EOMs intact bilaterally Neck supple and No nodes Resp normal air movement and clear to auscultation bilaterally Cardio regular rate and regular rhythm GI soft to palpation, non-tender and non-distended Extremity General Extremity: edema Skin Skin Narrative: mild R lower leg redness Neuro CN's II-XII intact bilaterally Lab / Micro Data Attestation: I reviewed the patient's lab results. 05/18/23 05:31 05/18/23 05:31 Labs: Laboratory Results - last 24 hr 05/16/23 05:50: RBC Folate Hemolysate > 620.0, RBC Folate > 2322, Hematocrit 26.7 L 05/17/23 05:40: Vitamin B12 341 05/18/23 05:31: WBC 4.8, RBC 2.64 L, Hgb 8.7 L, Hct 27.2 L, MCV 103.0 H, MCH 33.0 H, MCHC 32.0, RDW Std Deviation 86.3 H, RDW Coeff of Luis Alberto 22.7 H, Plt Count 216, MPV 10.8, Immature Gran % (Auto) 1.900 H, Neut % (Auto) 80.3 H, Lymph % (Auto) 11.3 L, [place] % (Auto) 4.2, Eos % (Auto) 1.9, Baso % (Auto) 0.4, Absolute Neuts (auto) 3.9, Absolute Lymphs (auto) 0.54 L, Nucleated RBC % 0, Anisocytosis 2+, Macrocytosis 2+, Sodium 136, Potassium 3.8, Chloride 103, Carbon Dioxide 30.0, Anion Gap 3 L, BUN 25 H, Creatinine 0.84, Estim Creat Clear Calc 57.92, Est GFR (MDRD) Af Amer 111, Est GFR (MDRD) Non-Af 92, BUN/Creatinine Ratio 29.8 H, Glucose 93, Calcium 8.2 L, Total Bilirubin 1.50 H, AST 21, ALT 51, Alkaline Phosphatase 134 H, Total Protein 5.2 L, Albumin 2.1 L, Globulin 3.1, Albumin/Globulin Ratio 0.7 L Rhythm Strip Rhythm Strip: vent pacing Rate: 60 Ectopy: None
--- NOTE | 2023-05-18 15:18 | CASEMGMT ---
Discharge Planning Discharge Summary/Instructions sent to [facility] Almita Mccartney, Discharge Planning Asst.
[2023-05-18 16:30] VITALS: BP 125/74; PULSE 54; RESP 18; TEMP 36.6; O2SAT 96
== END 2023-05-18 16:31 | disposition home or self-care (01) | DRG 872 ==
LOC: ED 16:50 → PCU 17:15
PROVIDERS: Admitting Provider Internal Medicine; Emergency Provider Emergency Medicine; Visit Provider Internal Medicine
DX: A41.89 Other specified sepsis (principal); C93.10 Chronic myelomonocytic leukemia not having achieved remission; I13.0 Hypertensive heart and chronic kidney disease with heart failure and stage 1 through stage 4 chronic kidney disease, or unspecified chronic kidney disease; L03.115 Cellulitis of right lower limb; I50.9 Heart failure, unspecified; I48.91 Unspecified atrial fibrillation; N18.31 Chronic kidney disease, stage 3a; R65.20 Severe sepsis without septic shock; E03.9 Hypothyroidism, unspecified; E78.5 Hyperlipidemia, unspecified; I25.10 Atherosclerotic heart disease of native coronary artery without angina pectoris; D50.9 Iron deficiency anemia, unspecified; R73.9 Hyperglycemia, unspecified; R09.02 Hypoxemia; Z79.82 Long term (current) use of aspirin; Z79.01 Long term (current) use of anticoagulants; Z79.890 Hormone replacement therapy; Z87.891 Personal history of nicotine dependence; Z86.73 Personal history of transient ischemic attack (TIA), and cerebral infarction without residual deficits; Z95.0 Presence of cardiac pacemaker; Z95.1 Presence of aortocoronary bypass graft
CPT/HCPCS: 36415; 71045; 80053; 80162; 80202; 82607; 82746; 82747; 82962; 83036; 83605; 83735; 83880; 84443; 84484; 85014; 85025; 85610; 85730; 87040; 87077; 87186; 93005; 93306; 93971; 97110; 97162; 97166; 97530; 97535; 99252; 99285; J7030; J7040; J7050; A4216; G0463; J1940

== ENCOUNTER 2023-05-22 08:59 | Outpatient (CLI) | payer MEDICARE, SELFPAY ==
[2023-05-22 09:15] VITALS: BP 104/46; PULSE 60; RESP 16; TEMP 36.1; O2SAT 98
[2023-05-22 10:11] VITALS: BP 128/54; PULSE 59; RESP 16; TEMP 36.2
[2023-05-22 12:20] VITALS: BP 127/49; PULSE 59; RESP 16; TEMP 36.3; O2SAT 93
== END 2023-05-22 09:00 | disposition home or self-care (01) ==
LOC: MEDOUTP 09:03
PROVIDERS: Referring Provider Internal Medicine Hematology & Oncology; Visit Provider Internal Medicine Hematology & Oncology
DX: D46.9 Myelodysplastic syndrome, unspecified (principal)
CPT/HCPCS: 36430; 86644; 86850; 86900; 86901; 86920; 86922; J7040; P9040; A4216

== ENCOUNTER → 2023-06-22 | Outpatient (REF) | payer MEDICARE, SELFPAY ==
[2023-06-22 09:22] LABS: Vitamin B12 567 pg/mL (211-911); Vitamin D,25 Hydroxy 64.7 ng/mL
== END ==
LOC: OLS.WHLTSB 04:00
PROVIDERS: Referring Provider Internal Medicine; Visit Provider Internal Medicine
DX: E55.9 Vitamin D deficiency, unspecified (principal); D46.9 Myelodysplastic syndrome, unspecified
CPT/HCPCS: 36415; 82306; 82607

== ENCOUNTER → 2024-05-05 05:00 | Outpatient (REF) | payer MEDICARE, SELFPAY ==
[2024-05-05 07:47] LABS: Thyroid Stim Hormone (TSH) 0.73 uIU/mL (0.358-3.74)
== END ==
LOC: OLS.WHLTSB 05:00
PROVIDERS: Visit Provider Internal Medicine
DX: E03.9 Hypothyroidism, unspecified (principal); D46.9 Myelodysplastic syndrome, unspecified; H00.012 Hordeolum externum right lower eyelid; R52 Pain, unspecified; R26.2 Difficulty in walking, not elsewhere classified; M62.561 Muscle wasting and atrophy, not elsewhere classified, right lower leg
CPT/HCPCS: 36415; 84443

== ENCOUNTER → 2024-10-12 | Outpatient (CLI) | payer MEDICARE, SELFPAY ==
--- NOTE | 2024-10-12 12:01 | STRESSREP_ITS ---
Stress Test Report Date: 10/12/2024 Procedure: Pharmacologic stress nuclear imaging study Indications: CAD Consent: Per the patient Procedure: The patient underwent pharmacologic (Regadenoson) evaluation with a peak heart rate of 91 beats per minute (68%predicted maximal heart rate) and a peak blood pressure of 118/68 mmHg. The baseline ECG demonstrated []. EKG during lexiscan infusion revealed []. EKG post infusion revealed [] [There were no cardiac dysrhythmias pretest, during pharmacologic infusion, or recovery]. [There was no complaint of chest discomfort during pharmacologic infusion or recovery]. The examination was discontinued secondary to completion of protocol. Impression: 1. Lexiscan stress test test is[] for Lexiscan infusion induced EKG changes of ischemia. 2. Lexiscan stress test test is[] for Lexiscan infusion induced chest pain. 3. Results of the nuclear portion of the test is as below Myocardial perfusion imaging study: Technique: The patient was injected with [] millicuries of technetium 99m Cardiolite and subsequently rest SPECT Cardiolite nuclear imaging was obtained in the horizontal long, vertical long, and short axis views. The patient underwent pharmacologic [Regadenoson 0.4mg] evaluation. Please see above for details. The patient was injected with [] millicuries of technetium 99m Cardiolite and subsequently stress SPECT Cardiolite nuclear imaging was obtained in the horizontal long, vertical long, and short axis views. A gated Cardiolite study at peak stress was obtained. Interpretation: Rest and stress SPECT Cardiolite nuclear imaging status post realignment, normalization, and attenuation correction demonstrate []. Gated images reveal[]. The reported LVEF is []%. Impression: 1. There is []. 2. Estimated ejection fraction is []. This note was generated with [employer] software. It may contain incorrect words, spelling, and punctuation that were not noted in checking the note before signing.
--- NOTE | 2024-10-12 12:01 | STRESSREP ---
Stress Test Report Date: 10/12/2024 Procedure: Pharmacologic stress nuclear imaging study Indications: CAD Consent: Per the patient Procedure: The patient underwent pharmacologic (Regadenoson) evaluation with a peak heart rate of 91 beats per minute (68%predicted maximal heart rate) and a peak blood pressure of 118/68 mmHg. The baseline ECG demonstrated regular branch block, likely sinus rhythm. EKG during lexiscan infusion revealed no significant ischemic changes. EKG post infusion revealed no significant ischemic changes [There were no cardiac dysrhythmias pretest, during pharmacologic infusion, or recovery]. [There was no complaint of chest discomfort during pharmacologic infusion or recovery]. The examination was discontinued secondary to completion of protocol. Impression: 1. Lexiscan stress test test is negative for Lexiscan infusion induced EKG changes of ischemia. 2. Lexiscan stress test test is negative for Lexiscan infusion induced chest pain. 3. Results of the nuclear portion of the test is as below Myocardial perfusion imaging study: Technique: The patient was injected with 11.1 millicuries of technetium 99m Cardiolite and subsequently rest SPECT Cardiolite nuclear imaging was obtained in the horizontal long, vertical long, and short axis views. The patient underwent pharmacologic [Regadenoson 0.4mg] evaluation. Please see above for details. The patient was injected with 33.8 millicuries of technetium 99m Cardiolite and subsequently stress SPECT Cardiolite nuclear imaging was obtained in the horizontal long, vertical long, and short axis views. A gated Cardiolite study at peak stress was obtained. Interpretation: Rest and stress SPECT Cardiolite nuclear imaging status post realignment, normalization, and attenuation correction demonstrate mild fixed defect involving the lateral wall. There is also decreased uptake in the apex on the stress images compared to the rest images suggestive of mild apical ischemia. Gated images reveal hypokinesis of the septum and inferior wall. The reported LVEF is 43%. Impression: 1. There is evidence of mild ischemia involving the apex. 2. Estimated ejection fraction is 43%. This note was generated with [employer] software. It may contain incorrect words, spelling, and punctuation that were not noted in checking the note before signing.
== END | disposition home or self-care (01) ==
LOC: CVS 07:21
PROVIDERS: Referring Provider Nurse Practitioner Family; Visit Provider Nurse Practitioner Family
DX: Z13.6 Encounter for screening for cardiovascular disorders (principal); R06.02 Shortness of breath; I25.10 Atherosclerotic heart disease of native coronary artery without angina pectoris
CPT/HCPCS: 78452; 93017; A9500; A4216; J2785

== ENCOUNTER 2025-06-18 20:55 | Emergency (ER) | payer MEDICARE, SELFPAY ==
[2025-06-18 20:55] VITALS: BP 115/54; PULSE 96; RESP 18; TEMP 36.1; O2SAT 95
--- NOTE | 2025-06-18 21:07 | EKG12_ITS ---
Test Reason : DYSRHYTHMIA Blood Pressure : */* mmHG Vent. Rate : 80 BPM Atrial Rate : * BPM P-R Int : * ms QRS Dur : 158 ms QT Int : 468 ms P-R-T Axes : * 247 42 degrees QTcB Int : 539 ms Atrial fibrillation with occasional ventricular-paced complexes Right bundle branch block Possible Lateral infarct , age undetermined Abnormal ECG Confirmed by Kevin Rowley ([id number]), assistant film editor BEBO JUAN ([id number]) on 06/21/2025 9:35:00 AM Referred By: DIANE Confirmed By: Kevin Rowley
[2025-06-18 21:23] VITALS: BMI 29.4
[2025-06-18 22:00] VITALS: BP 122/78; PULSE 94; RESP 18; TEMP 36.4; O2SAT 95
--- NOTE | 2025-06-18 22:47 | ED.VIS.LOWEX ---
HPI History of Present Illness HPI Narrative: Patient is an 89-year-old male presents to the emergency department for left leg swelling and redness. Patient has a past medical history of CMML is not on any infusions or treatment currently, sepsis, CAD, pacemaker placement. Patient is on Xarelto and has been compliant with this. Patient states that he normally has issues with swelling in his right leg due to a past graft that was taken from it. States that over the past 2 weeks he has developed swelling in his left lower leg. Over the past week it has become erythematous. He denies fever, chills, chest pain, shortness of breath, fatigue, abdominal pain, nausea, vomiting, diarrhea. States he has been compliant with his Lasix. Denies history of DVT or PE. Denies any recent travel, hospitalizations or surgeries. Chief Complaint: Edema [facility] Medical History Cellulitis CMML (chronic myelomonocytic leukemia) Lumbar stenosis Nocturnal hypoxemia Osteoarthritis Atheroembolism of foot Myasthenia gravis Pacemaker (~09/2022) Cerebral vascular accident (~08/2022) Complete heart block Coronary artery disease (~09/2022) Hypothyroidism HLD (hyperlipidemia) Benign essential HTN Home Medications ?Medication ?Instructions ?Recorded ?Last Taken ?Type aspirin 81 mg tablet,delayed 81 mg PO DAILY 04/09/23 05/14/23 History release cholecalciferol (vitamin D3) 25 25 mcg PO DAILY 04/09/23 05/14/23 History mcg (1,000 unit) tablet cyanocobalamin (vitamin B-12) 1,000 mcg PO DAILY 04/09/23 05/14/23 History 1,000 mcg capsule furosemide 20 mg tablet (Lasix) 20 mg PO BID 04/09/23 05/14/23 History levothyroxine 112 mcg tablet 112 mcg PO DAILY 04/09/23 05/14/23 History (Synthroid) multivitamin 1 tab PO DAILY 04/09/23 05/14/23 History rivaroxaban 20 mg tablet (Xarelto) 20 mg PO QPM 04/09/23 05/13/23 History atorvastatin 20 mg tablet 20 mg PO QHS 05/14/23 05/13/23 History digoxin 125 mcg (0.125 mg) tablet 0.125 mg PO DAILY 05/14/23 05/14/23 History metoprolol tartrate 25 mg tablet 12.5 mg PO BID 05/14/23 05/14/23 History ferrous fumarate 325 mg (106 mg 325 mg PO DAILY 30 days #0 tabs 05/18/23 05/14/23 Rx iron) tablet folic acid 1 mg tablet 1 mg PO BREAKFAST 30 days #30 tabs 05/18/23 Unknown Rx levofloxacin 500 mg tablet 500 mg PO DAILY 6 days #6 tabs 05/18/23 Unknown Rx polyethylene glycol 3350 17 gram 17 g PO DAILY 30 days #30 ea 05/18/23 Unknown Rx oral powder packet sennosides 8.6 mg-docusate sodium 2 tab PO BID PRN constipation 30 05/18/23 Unknown Rx 50 mg tablet (Stool days #120 tabs Softener-Stimulant Laxative) polyethylene glycol 3350 17 17 g PO DAILY PRN constipation 05/20/23 Unknown Rx gram/dose oral powder (Miralax) #238 grams prochlorperazine maleate 10 mg 10 mg PO BID PRN nausea and 05/22/23 Unknown History tablet (Compazine) vomiting furosemide 40 mg tablet 40 mg PO DAILY 06/18/25 Unknown History levothyroxine 100 mcg tablet 100 mcg PO DAILY 06/18/25 Unknown History (Synthroid) cephalexin 500 mg capsule 500 mg PO Q8H 5 days #15 caps 06/19/25 Unknown Rx Allergy/AdvReac Type Severity Reaction Status Date / Time No Known Allergies Allergy Verified 05/22/23 09:41 Family History Mother Heart disease Father Heart disease Surgical History History of ankle surgery (~12/2020) History of arthroplasty of right shoulder (~2008) Hx of CABG (~07/2021) Social History Smoking Status: Former smoker how long ago did patient quit smokinyrs alcohol intake: current alcohol intake frequency: 0-2 drinks per day Alcohol type: beer, wine and hard liquor details: 1-2 beers per week substance use type: does not use ROS ROS ED ROS Narrative see HPI EXAM Physical Exam Narrative Exam Narrative: Vital signs: Reviewed General: Alert and oriented. No acute distress HEENT: Head is normocephalic and atraumatic, sinuses nontender, pupils equal round and reactive. Nares are patent. Oropharynx and throat exams normal. Neck: Supple without lymphadenopathy nontender Cardiovascular: Regular rate and rhythm, no murmurs. No rubs or gallops. Normal S1 and S2 Respiratory: Clear to auscultation bilaterally. No wheezes, rales, rhonchi Abdominal: Soft and nontender. Normal bowel sounds. No guarding or rebound. Nonsurgical abdomen Extremities: Right lower extremity with trace pitting edema. There are some weeping from the right anterior trevizo. The left lower leg has 3-4+ pitting edema. There is erythema extending from the ankle up to about mid trevizo. With some excoriations. It is warm to the touch. There is no tenderness to palpation of either calf. DP pulses intact. Sensation and motor intact. Neurological: Cranial nerves II through XII are grossly intact. Normal strength and sensation. Normal cerebellar function The rest of the physical exam is unremarkable Const Vital Signs: 06/18/25 20:55 06/18/25 21:25 06/18/25 22:00 Temperature 97 F L 97.5 F L Temperature Source Temporal Oral Pulse Rate 96 94 Respiratory Rate 18 18 Respiratory Effort Normal Respiratory Pattern Normal Blood Pressure 115/54 L 122/78 H Blood Pressure Mean 74 92 Pulse Ox 95 95 Oxygen Delivery Method Room Air Room Air 06/18/25 23:00 06/19/25 00:00 06/19/25 00:29 Temperature 97.5 F L 97.5 F L 97.5 F L Temperature Source Oral Oral Pulse Rate 76 75 82 Respiratory Rate 20 H 20 H 20 H Respiratory Effort Respiratory Pattern Blood Pressure 130/80 H 123/71 H 122/72 H Blood Pressure Mean 96 88 88 Pulse Ox 95 95 97 Oxygen Delivery Method Room Air Room Air MDM MDM MDM Narrative Medical decision making narrative: Patient is an 89-year-old male presenting to the emergency department for left leg swelling and redness. Patient was seen and examined. Vitals are stable. Patient resting bed comfortably in no acute distress. He arrives with daughter who is at bedside. Differential includes but is not limited to: DVT, cellulitis, edema secondary to CHF Given the swelling and erythema is asymmetric I have more concern for DVT and cellulitis then edema secondary to CHF. In addition he is not having any shortness of breath or chest pain. The patient has no signs of sepsis, he has no fever, chills and is feeling generally well. We do not have ultrasound capabilities at this time for DVT study however I also think this is less likely given he is compliant with his Xarelto. At this time I think it is likely cellulitis. He is not immunocompromised at this time. Will obtain labs and give first dose of antibiotics here. Will order a DVT ultrasound outpatient for tomorrow morning. CBC with no leukocytosis and anemia of 9.6. BMP with BUN around his baseline from 23. Creatinine is slightly worse. I updated the patient and on the findings. I will renally dose his Keflex for home. He does not have any risk factors for MRSA. Likely staph strep causing the cellulitis. I also ordered a outpatient DVT ultrasound that he will go to in the morning. I recommended that he follow-up with his primary care doctor to have his kidney levels checked in the next 48 hours. Patient and feel comfortable with the plan. Patient discharged from the Emergency Department. I do not feel that the patient's evaluation reveals any acute reason for admission at this time. I instructed them to either follow-up with their primary care physician or promptly return to the Emergency Department for reevaluation should symptoms worsen or new symptoms develop. I explained what symptoms would indicate the need to return to the emergency department. Shared decision making was used. The patient voiced understanding of the treatment plan and is agreeable with it. History & Record Review Discussion w/independent historian: Patient and Family Lab Data Attestation: I reviewed the patient's lab results. Labs: Laboratory Results - last 24 hr 06/18/25 21:39 WBC 7.1 RBC 2.65 L Hgb 9.6 L Hct 29.8 L MCV 112.5 H MCH 36.2 H MCHC 32.2 RDW Std Deviation 111.8 H RDW Coeff of Luis Alberto 26.8 H Plt Count 225 MPV 12.5 H Immature Gran % (Auto) 0.300 Neut % (Auto) 67.8 Lymph % (Auto) 13.2 L [place] % (Auto) 17.3 H Eos % (Auto) 0.7 Baso % (Auto) 0.7 Absolute Neuts (auto) 4.8 Absolute Lymphs (auto) 0.94 Nucleated RBC % 1.4 Differential Comment Diff Path Review May foll Plt Morphology Comment LARGE RBC Morphology 1+ Polychromasia 1+ Hypochromasia RARE Basophilic Stippling RARE Anisocytosis 3+ Ovalocytes RARE Sodium 139 Potassium 4.6 Chloride 98 Carbon Dioxide 30.8 Anion Gap 10 BUN 29 H Creatinine 1.37 H Estim Creat Clear Calc 38.13 L Est GFR (MDRD) Non-Af 49 L BUN/Creatinine Ratio 21.2 H Glucose 158 H Calcium 9.0 Discharge Plan Triage Chief Complaint: Edema Other Complaint: Cellulitis ED Provider: Bryanna Tijerina Dx/Rx/DC Orders Clinical Impression: Cellulitis and abscess of left leg, Localized swelling of left lower leg, DANE (acute kidney injury) Instructions: Cellulitis Dc Prescriptions: New cephalexin 500 mg capsule 500 mg PO Q8H 5 Days Qty: 15 0RF No Action levothyroxine [Synthroid] 112 mcg tablet 112 mcg PO DAILY furosemide [Lasix] 20 mg tablet 20 mg PO BID Patient Comments: 1 TAB IN THE AM AND 1 TAB QHS cyanocobalamin (vitamin B-12) 1,000 mcg capsule 1,000 mcg PO DAILY cholecalciferol (vitamin D3) 25 mcg (1,000 unit) tablet 25 mcg PO DAILY multivitamin Tablet 1 tab PO DAILY aspirin 81 mg tablet,delayed release (DR/EC) 81 mg PO DAILY Xarelto 20 mg tablet 20 mg PO QPM Rx Instructions: must administer with evening meal prochlorperazine maleate [Compazine] 10 mg tablet 10 mg PO BID PRN (Reason: nausea and vomiting) digoxin 125 mcg (0.125 mg) tablet 0.125 mg PO DAILY metoprolol tartrate 25 mg tablet 12.5 mg PO BID Patient Comments: take 1/2 tablet by mouth every 12 hours atorvastatin 20 mg tablet 20 mg PO QHS sennosides-docusate sodium [Stool Softener-Stimulant Laxat] 8.6-50 mg Tablet 2 tab PO BID PRN (Reason: constipation) 30 Days Qty: 120 0RF folic acid 1 mg Tablet 1 mg PO BREAKFAST 30 Days Qty: 30 2RF polyethylene glycol 3350 17 gram Powder In Packet 17 g PO DAILY 30 Days Qty: 30 0RF ferrous fumarate 325 mg (106 mg iron) tablet 325 mg PO DAILY 30 Days Qty: 0 0RF Rx Instructions: with meals levofloxacin 500 mg tablet 500 mg PO DAILY 6 Days Qty: 6 0RF polyethylene glycol 3350 [Miralax] 17 gram/dose powder 17 g PO DAILY PRN (Reason: constipation) Qty: 238 0RF furosemide 40 mg tablet 40 mg PO DAILY levothyroxine [Synthroid] 100 mcg tablet 100 mcg PO DAILY Other Ambulatory Orders: Venous Duplex US, Unilateral (Stat) Facility: [facility] - Location: [facility] Ordered By: Dr. Bryanna Tijerina Primary Care Provider: Ronaldo Murillo Referrals: Ronaldo Murillo MD [Primary Care Provider] - 2 Days Activity Restrictions/Additional Instructions: Your evaluation in the Emergency Department did not reveal any acute reason for admission. However, I want to emphasize that you may be early in the course of a disease process or illness even if it is not present. For this reason you should follow-up within 24 hours for reevaluation with either your primary care physician or if necessary back here in the Emergency Department. You should return to the Emergency Department immediately if your symptoms worsen or new symptoms develop. Please take the antibiotic once every 8 hours for the next 5 days. You need to return tomorrow morning to have an ultrasound of your leg done outpatient. You need to follow-up with your primary care doctor within the next 48 hours for a recheck of your kidney levels. Return to the ED with any symptoms as discussed including worsening redness or swelling of the leg, fatigue, fevers, chills, nausea or vomiting. Print Language: Syriac Disposition Disposition: Home, Self Care Discharge Date/Time: 06/19/25 00:39
[2025-06-18 22:56] LABS: Hematocrit 29.8 % (40-54); Hemoglobin 9.6 g/dL (13.0-16.5); Immature Granulocytes Count 0.020 X10^3/uL (0.0-0.0); Mean Corp Hgb Conc 32.2 g/dL (32-36); Mean Corpuscular Volume 112.5 fL (80-94); Mean Platelet Vol. 12.5 fl (6.2-12.0); NRBC Flagged by Analyzer 1.4 % (0-5); POSITIVE MORPHOLOGY YES; Platelet Count 225 K/mm3 (150-450); RBC Distribution Width CV 26.8 % (11.6-14.6); Red Blood Count 2.65 M/mm3 (4.6-6.2); White Blood Count 7.1 K/mm3 (4.4-11.0)
[2025-06-18 22:57] LABS: Differential Indicated SCAN CRITERIA MET; RBC Distribution Width SD 111.8 fl (35.1-43.9)
[2025-06-18 23:00] VITALS: BP 130/80; PULSE 76; RESP 20; TEMP 36.4; O2SAT 95
--- OUTSIDE RECORDS SUMMARY | 2025-06-18 23:02 | XMS RPT_ITS | CCD ---
Author Organization [facility] Care Team Providers Care Lecturer In Marketing Name Role Phone Laron Arreola MD Unavailable Tirmonia DO, Israel Hamzah Primary Care Provide r Laron Arreola Unavailable Israel Minor MD Unavailable Tirjoania DO, Israel Hamzah Primary Care Provide r Laron Arreola Unavailable Israel Minor MD Unavailable Tere Wang RN Unavailable Laron Arreola Unavailable Tere Wang RN Unavailable BALJINDER TREVIZO Attending Unavailable BALJINDER TREVIZO Admitting Unavailable TIRMONIA, ISRAEL HAMZAH Primary Care Unavail able Eveline Dean RN Unavailable Sindel DO, Randa Unavailable Sanket Rob DO Unavailable [facility], [facility] Unavailable Tirjoania DO, Israel Cameron Primary Care Provide r Laron Arreola Unavailable Israel Minor MD Unavailable Eveline Dean RN Unavailable Sindel DORanda Unavailable Sanket Rob DO Unavailable Ruby Duff RN Unavailable Ginna Em RN Unavailable [phone] [facility] BRANSON[place], [facility] Unavail able SINDEL, RANDA Referring Unavailable TIRMONIA, [facility] Unavail able JEANETH DOMÍNGUEZ Attending Unavailable TIRMONIA, [facility] Unavail able MARLENE DOMÍNGUEZER Referring Unavailable DONEVGENYRAN EdenJOANChad KOEHLER Admitting Unavaila LARON Garcia Consulting Unavailable ARYANLURI, ALLIE Attending Unavailable TIRMONIA, [facility] Unavail able SINDEL, RANDA Referring Unavailable TIRMONIA, [facility] Unavail able VALLURI, ALLIE Referring Unavailable TIRMONIA, [facility] Unavail able STEPHEN DOTY Referring Unavailable ROSA GONZALEZ Attending Unavailable TIRMONIA, [facility] Unavail able LARON FORTUNE Referring Unavailable TIRMONIA, [facility] Unavail able SINDEL, RANDA Referring Unavailable TIRMONIA, [facility] Unavail able SINDEL, RANDA Referring Unavailable TIRMONIA, [facility] Unavail able SINDEL, RANDA Referring Unavailable TIRMONIA, [facility] Unavail able LAURI COOK Attending Unavailable SINDEL, RANDA Referring Unavailable SINDEL, RANDA Referring Unavailable TIRMONIA, [facility] Unavail able SINDEL, RANDA Referring Unavailable TIRMONIA, [facility] Unavail able TIRMONIA, [facility] Unavail able SKYE MAS Referring Unavailable TIRMONIA, [facility] Unavail able SINDEL, RANDA Referring Unavailable TIRMONIA, [facility] Unavail able SINDEL, RANDA Referring Unavailable TIRMONIA, [facility] Unavail able SINDEL, RANDA Referring Unavailable MANJEET BUTLER Admitting Unavailable MANJEET BUTLER Attending Unavailable TIRMONIA, [facility] Unavail able TIRMONIA, [facility] Care Unavail able JESUS MANUEL WHITE MD Attending Unavailable JESUS MANUEL WHITE MD Admitting Unavailable TIRMONIA, [facility] Unavail able SINDEL, RANDA Referring Unavailable TIRMONIA, [facility] Unavail able SINDEL, RANDA Referring Unavailable TIRMONIA, [facility] Unavail able TIRMONIA, [facility] Unavail able SINDEL, RANDA Referring Unavailable TIRMONIA, ISRAEL HAMZAH Primary Care Unavail able SINDEL, RANDA Referring Unavailable TIRMONIA, [facility] Unavail able SINDEL, RANDA Referring Unavailable TIRMONIA, [facility] Unavail able SINDEL, RANDA Attending Unavailable TIRMONIA, [facility] Unavail able SINDEL, RANDA Referring Unavailable TIRMONIA, [facility] Unavail able SINDEL, RANDA Referring Unavailable TIRMONIA, [facility] Unavail able SINDEL, RANDA Referring Unavailable TIRMONIA, [facility] Unavail able SINDEL, RANDA Referring Unavailable TIRMONIA, [facility] Unavail able SINDEL, RANDA Attending Unavailable TIRMONIA, [facility] Care Unavail able SINDEL, RANDA Referring Unavailable TIRMONIA, [facility] Unavail able SINDEL, RANDA Attending Unavailable TIRMONIA, [facility] Unavail able SINDEL, RANDA Referring Unavailable SINDEL, RANDA Attending Unavailable TIRMONIA, [facility] Unavail able SINDEL, RANDA Referring Unavailable TIRMONIA, [facility] Unavail able SINDEL, RANDA Referring Unavailable TIRMONIA, [facility] Unavail able ÁNGEL, TARA A Attending Unavailable ÁNGEL, TARA A Referring Unavailable TIRMONIA, [facility] Unavail able SINDEL, RANDA Attending Unavailable TIRMONIA, [facility] Unavail able SINDEL, RANDA Referring Unavailable TIRMONIA, [facility] Unavail able SINDEL, RANDA Referring Unavailable TIRMONIA, [facility] Unavail able SINDEL, RANDA Referring Unavailable TIRMONIA, [facility] Unavail able SINDEL, RANDA Referring Unavailable TIRMONIA, [facility] Unavail able SINDEL, RANDA Referring Unavailable TIRMONIA, [facility] Unavail able SINDEL, RANDA Referring Unavailable TIRMONIA, [facility] Unavail able SINDEL, RANDA Referring Unavailable TIRMONIA, [facility] Unavail able SINDEL, RANDA Referring Unavailable TIRMONIA, [facility] Unavail able SINDEL, RANDA Referring Unavailable TIRMONIA, [facility] Unavail able SINDEL, RANDA Referring Unavailable SINDEL, RANDA Attending Unavailable TIRMONIA, [facility] Unavail able SKYE MAS Attending Unavailable Dr. Ned Dinh Attending Provider Dr. Homer Khan Attending Provider Dr. Pedro Diaz Emergency Provider [phone] Hamzah Pruitt Primary Care Provider Crescencio, Dr. Hernandez Admit Provider Dr. Mary Prather Attending Provider Crescencio, Dr. Hernandez Other Provider Dr. Cristobal Villafuerte Attending Provider Dr. Marshal Rebolledo Attending Provider Amaury, Dr. Araya Other Provider Dr. Homer Marsh Other Provider [phone] Laron Arreola Unavailable Sheila RN, Ileana Unavailable Unavailable Randa Rowell DO Unavailable Israel Pruitt DO Primary Care Provide r Omega RN, Ruby Unavailable Manav JIMÉNEZ, Ginna Noel Unavailable Sheila RN, Ileana Unavailable Unavailable Ronaldo Pleitez MD Primary Care Provider Dr. Pedro Diaz Referring Provider Dr. Cristobal Villafuerte Referring Provider Ronaldo Pleitez MD Primary Care Provider Care Physician, No Primary Primary Care Unava ilable Cristobal Villafuerte Attending UnavailIram Neal Consulting Unavailable Iram Johnson Referring Unavailable Care Physician, No Primary Primary Care Unava ilable Iram Johnson Attending Unavailable Iram Johnson Referring Unavailable [facility] Doctor, Out of Primary Care Unavailable Ronaldo Medina Attending Unavailkolby Moreno MANAGER DAIRY.OFFICE MACHINES SALES REPRESENTATIVE, Arabella M Unavailable Sanket Rob DO Unavailable Sanket Rob DO Unavailable RONALDO PLEITEZ Primary Care Unavailable BALJINDER GALLOWAY Referring Unavailable PLIETEZ, [facility] Primary Care Unavailable MASCI, BALJINDER A Referring Unavailable PLEITEZ, [facility] Primary Care Unavailable MASCI, BALJINDER A Referring Unavailable PLEITEZ, KISHAN Referring Unavailable PLEITEZ, [facility] Primary Care Unavailable PLEITEZ, [facility] Primary Care Unavailable MASCI, BALJINDER A Referring Unavailable PLEITEZ, [facility] Primary Care Unavailable MASCI, BALJINDER A Referring Unavailable ARABELLA MORENO Attending Unavailable PLEITEZ, [facility] Primary Care Unavailable PLEITEZ, [facility] Primary Care Unavailable MASCI, BALJINDER A Referring Unavailable PLEITEZ, [facility] Primary Care Unavailable MASCI, BALJINDER A Referring Unavailable PLEITEZ, [facility] Primary Care Unavailable MASCI, BALJINDER A Referring Unavailable PLEITEZ, [facility] Primary Care Unavailable MASCI, BALJINDER A Referring Unavailable MASCI, BALJINDER A Attending Unavailable PLEITEZ, [facility] Primary Care Unavailable MASCI, BALJINDER A Referring Unavailable PLEITEZ, [facility] Primary Care Unavailable MASCI, BALJINDER A Referring Unavailable PLEITEZ, KISHAN Attending Unavailable PLEITEZ, [facility] Primary Care Unavailable PLEITEZ, [facility] Primary Care Unavailable MASCI, BALJINDER A Referring Unavailable MASCI, BALJINDER A Attending Unavailable PLEITEZ, [facility] Primary Care Unavailable MASCI, BALJINDER A Referring Unavailable PLEITEZ, [facility] Primary Care Unavailable MASCI, BALJINDER A Referring Unavailable PLEITEZ, [facility] Primary Care Unavailable MASCI, BALJINDER A Referring Unavailable MASCI, BALJINDER A Attending Unavailable PLEITEZ, [facility] Primary Care Unavailable MASCI, BALJINDER A Referring Unavailable PLEITEZ, [facility] Primary Care Unavailable MASCI, BALJINDER A Referring Unavailable PLEITEZ, [facility] Primary Care Unavailable MASCI, BALJINDER A Referring Unavailable PLEITEZ, [facility] Primary Care Unavailable MASCI, BALJINDER A Referring Unavailable PLEITEZ, [facility] Primary Care Unavailable MASCI, BALJINDER A Referring Unavailable PLEITEZ, [facility] Primary Care Unavailable MASCI, BALJINDER A Referring Unavailable PLEITEZ, [facility] Primary Care Unavailable MASCI, BALJINDER A Referring Unavailable DAVID CERVANTES Attending Unavailable PLEITEZ, [facility] Primary Care Unavailable MASCI, BALJINDER A Referring Unavailable LAURI COOK Attending Unavailable PLEITEZ, [facility] Primary Care Unavailable MASCI, BALJINDER A Referring Unavailable PLEITEZ, [facility] Primary Care Unavailable MASCI, BALJINDER A Referring Unavailable PLEITEZ, KISHAN Primary Care Unavailable MASCI, BALJINDER A Referring Unavailable PLEITEZ, KISHAN Primary Care Unavailable MASCI, BALJINDER A Referring Unavailable PLEITEZ, KISHAN Primary Care Unavailable MASCI, BALJINDER A Referring Unavailable PLEITEZ, KISHAN Primary Care Unavailable MASCI, BALJINDER A Referring Unavailable PLEITEZ, KISHAN Primary Care Unavailable TIFFANIE, ARABELLA Aceves Attending Unavailable PLEITEZ, KISHAN Primary Care Unavailable MASCI, BALJINDER A Referring Unavailable PLEITEZ, KISHAN Primary Care Unavailable MASCI, BALJINDER A Referring Unavailable PLEITEZ, KISHAN Primary Care Unavailable MASCI, BALJINDER A Referring Unavailable PLEITEZ, KISHAN Primary Care Unavailable MASCI, BALJINDER A Referring Unavailable TIFFANIE, ARABELLA Aceves Attending Unavailable PLEITEZ, KISHAN Primary Care Unavailable PLEITEZ, KISHAN Primary Care Unavailable MASCI, BALJINDER A Referring Unavailable PLEITEZ, KISHAN Primary Care Unavailable MASCI, BALJINDER A Referring Unavailable PLEITEZ, KISHAN Attending Unavailable PLEITEZ, KISHAN Primary Care Unavailable PLEITEZ, [facility] Primary Care Unavailable TIFFANIE, ARABELLA Aceves Attending Unavailable PLEITEZ, KISHAN Primary Care Unavailable MASCI, BALJINDER A Referring Unavailable PLEITEZ, KISHAN Primary Care Unavailable MASCI, BALJINDER A Referring Unavailable PLEITEZ, KISHAN Primary Care Unavailable MASCI, BALJINDER A Referring Unavailable PLEITEZ, KISHAN Primary Care Unavailable MASCI, BALJINDER A Referring Unavailable PLEITEZ, KISHAN Primary Care Unavailable MASCI, BALJINDER A Referring Unavailable PLEITEZ, KISHAN Primary Care Unavailable MASCI, BALJINDER A Referring Unavailable PLEITEZ, [facility] Primary Care Unavailable MASCI, BALJINDER A Referring Unavailable IRAM JOHNSON Attending Unavailable PLEITEZ, KISHAN Primary Care Unavailable PLEITEZ, KISHAN Primary Care Unavailable PLEITEZ, KISHAN Primary Care Unavailable IRAM JOHNSON Attending Unavailable PLEITEZ, KISHAN Primary Care Unavailable PLEITEZ, KISHAN Primary Care Unavailable Allergies Allergy Classification Reported Allergen(s) Allergy Type Date of Onset Reaction(s) Facility HMG-CoA Reductase Inhibitors (statins) (1 source) Simvastatin Drug Allergy 2 Other: See Comments [facility] (20 sources) Simvastatin; Translations: [SIMVASTATIN] Drug Allergy 2 Other: See Comments [facility] Work Phone: Medications Current Medications Medication Drug Class(es) Dates Sig (Normalized) Sig (Original) aspirin 81 mg delayed release oral tablet (20 sources) Platelet Aggregation Inhibitor, Nonsteroidal Anti-inflammatory Drug Start: 08-29-2020 End: 09-30-2023 take 81 mg by mouth once daily Aspirin Active 81 MG PO DAILY April 09, 2023 12:00am take 81 mg by mouth once daily A DULT LOW DOSE ASPIRIN ORAL Take 81 mg by mouth once daily. Active ADULT LOW DOSE A SPIRIN ORAL Take by mouth. 0 Active Comment on above: Take 81 mg by mouth once daily. Take by mouth. atorvastatin 20 mg oral tablet (20 sources) HMG-CoA Reductase Inhibitor Start: 2 End: 3 take 0.5 tablet by mouth once daily atorvastatin (LIPITOR) 40 mg tablet Take 0.5 tablets by mouth once daily. New lower dose as of Jul 24 2022 90 tablet 3 08/05/2022 09/30/2023 Discontinued Start: 09-02-2021 End: 07-24-2022 take 1 tablet by mouth once daily atorvastatin (LIPITOR) 40 mg tablet Take 1 tablet by mouth once daily. 90 tablet 3 04/17/2022 07/24/2022 Discontinued (Adjust Sig - Block E-Cancel) Start: 08-29-2020 End: 12-23-2024 take 1 tablet by mouth once daily atorvastatin (LIPITOR) 20 mg tablet Indications: Mixed hyperlipidemia Take 1 tablet by mouth once daily. 90 tablet 3 12/23/2024 Active Start: 08-29-2020 ATORVASTATIN C ALCIUM 10 MG TABS 1 tablet daily ATORVASTATIN CALCIUM [id number] Eugenia Morgan LPN Comment on above: Take 1 tablet by vinny th once daily. Take 40 mg by mouth once daily. Take 0.5 tablets by mouth once daily. New lower dose as of Jul 24 2022 Take 20 mg by mouth once daily. cefdinir 300 mg oral capsule (4 sources) Cephalosporin Antibacterial Start: End: take 1 capsule by mouth twice daily cefdinir (OMNICEF) 300 mg capsule Take 1 capsule by mouth twice daily for 5 doses. 5 capsule 0 07/09/2022 07/12/2022 Active Comment on above: Take 1 capsule by mo ut twice daily for 5 doses. cholecalciferol 0.025 mg oral tablet (20 sources) Vitamin D Start: 023 take 25 ug by mouth once daily Cholecalciferol (Vitamin D3) Active 25 MCG PO DAILY April 09, 2023 12:00am Start: 08-29-2020 End: 09-30-2023 cholecalciferol (VITAMIN D3) 1,000 unit tab tablet Take by mouth once daily. 08/29/2020 Active Start: 08-29-2020 VITAMIN D3 10 MCG (400 UNIT) TABS 1 tablet once daily CHOLECALCIFEROL [id number] Patricia Paul take 1 capsule by mo uth once daily cholecalciferol, vitamin D3, 10 mcg (400 unit) cap Take 1,000 Units by mouth once daily. 0 Active take 1 capsule by mo uth once daily cholecalciferol, vitamin D3, 10 mcg (400 unit) cap Take 400 Units by mouth once daily. 0 Active Comment on above: Take 400 Units by mo uth once daily. Take 1,000 Units by mouth once daily. docusate sodium 50 mg / sennosides, halfway 8.6 mg oral tablet (4 sources) Start: 05-18-2023 take 2 tablets by mouth twice daily Sennosides-Docusate Sodium (Stool Softener-Stimulant Laxat) 8.6-50 mg Tablet Active 2 TABLET PO TWICE A DAY 120 May 18, 2023 12:00am doxycycline monohydrate 100 mg oral capsule (2 sources) Tetracycline-cla ss Drug Start: 05-30-2025 End: 06-06-2025 take 1 capsule by mouth twice daily doxycycline monohydrate (MONODOX) 100 mg capsule Take 1 capsule by mouth two times a day for 7 days. 14 capsule 05/30/2025 06/06/2025 Active ferrous fumarate 325 mg oral tablet (20 sources) Start: 05-18-2023 take 325 mg by mouth once daily at mealtime Ferrous Fumarate Active 325 MG PO DAILY 0 May 18, 2023 9:40am with meals Start: 04-09-2023 End: 12-23-2023 take 1 tablet by mouth once Ferrous Fumarate 324 mg (1 06 mg iron) tab Take 1 tablet by mouth once daily. Per [facility] readmission fax 0 04/09/2023 12/23/2023 Discontinued Start: 04-09-2023 End: 05-18-2023 take 325 mg by mouth three times daily at mealtime Ferrous Fumarate Discontinued 325 MG PO 3 TIMES DAILY WITH MEALS April 09, 2023 12:00am May 18, 2023 9:40am with meals Comment on above: Take 1 tablet by vinny th once daily. Per [facility] readmission fax folic acid 1 mg oral tablet (20 sources) Start: 01-22-2024 take 1 tablet by mouth once daily folic acid 1 mg tablet Take 1 tablet by mouth once daily. 90 tablet 3 01/22/2024 Active Start: 05-18-2023 End: 12-23-2023 take 1 mg by mouth at breakfast Folic Acid Active 1 MG PO WITH BREAKFAST May 18, 2023 12:00am Comment on above: Take 1 mg by mouth o nce daily. Take 1 tablet by vinny th once daily. furosemide 40 mg oral tablet (20 sources) Loop Diuretic Start: 01-22-2024 End: 06-05-2025 take 0.5 tablet by mouth twice daily in the morning, then take 0.5 tablet by mouth every other day in the morning furosemide (LASIX) 40 mg tablet Indications: Lymphedema of both lower extremities , Chronic heart failure with preserved ejection fraction (HCC) Take 0.5 tablets by mouth two times a day. AM and noon. Okay to take an extra 0.5 tab in the AM if swelling increases (no more than two days) 06/05/2025 Active Start: 12-08-2023 End: 01-22-2024 take 1 tablet by mouth twice daily in the morning furosemide (LASIX) 40 mg tablet Indications: Lymphedema of both lower extremities , Chronic heart failure with preserved ejection fraction (HCC) Take 1 tablet by mouth two times a day. AM and noon. 180 tablet 3 12/18/2023 01/22/2024 Discontinued Start: 06-16-2023 take 1 tablet by vinny th twice daily in the morning furosemide (LASIX) 40 mg tablet Indications: Lymphedema of both lower extremities , Chronic heart failure with preserved ejection fraction (HCC) Take 1 tablet by mouth twice daily. AM and Noon. 0 06/16/2023 Active Start: 05-21-2023 End: 06-16-2023 furosemide (LASIX) 40 mg tab let One plus a half tablet every morning as of May 21 2023 , new dose 45 tablet 3 05/21/2023 06/16/2023 Discontinued Start: 04-20-2023 End: 05-21-2023 take 3 tablets by mouth in the morning, then take 1 tablet by mouth in the evening furosemide (LASIX) 20 mg tablet Take by mouth. Take 60mg in AM and 20mg in PM 0 04/20/2023 05/21/2023 Discontinued (Course of therapy completed) Start: 03-12-2023 End: 04-20-2023 furosemide (LASIX) 20 mg tab let Take by mouth. Reduce dose to 1 tablet twice daily as of April 20, 2023 0 04/20/2023 Active Start: 07-17-2022 End: 07-17-2022 furosemide 20 mg injection ( LASIX) Start: 07-09-2022 End: 08-07-2023 take 1 tablet by mouth twice daily Furosemide (Lasix) 20 mg tablet Active 20 MG PO TWICE A DAY April 09, 2023 12:00am Comment on above: Take 1 tablet by vinny th twice daily. Take 1 tablet by vinny th as directed. Take 20 mg p.o. twice daily, 20 mg as needed for 3-7 days with increased edema then back to 20 mg twice daily Take 1 tablet by vinny th as directed. Take two tablets daily in am and one tablet nightly as of Mar 12 2023 , total 60 mg daily , new dose Take by mouth. Reduc e dose to 1 tablet twice daily as of April 20, 2023 Take by mouth. Take 60mg in AM and 20mg in PM One plus a half tabl et every morning as of May 21 2023 , new dose Take 1 tablet by vinny th twice daily. AM and Noon. Take 1 tablet by vinny th two times a day. AM and noon. Take 0.5 tablets by mouth two times a day. AM and noon. levoFLOXacin 500 mg oral tablet (10 sources) Quinolone Antimicrobial Start: 05-18-20 End: 06-12-20 take 500 mg by mouth once daily Levofloxacin Active 500 MG PO DAILY 6 May 18, 2023 12:00am Comment on above: Take by mouth once d aily. Take by mouth once d aily. X 6 days levothyroxine sodium 0.1 mg oral tablet (20 sources) l-Thyroxine Start: 02-20-20 End: 12-23-19 take 1 tablet by mouth once daily levothyroxine (SYNTHROID) 100 mcg tablet Indications: Hypothyroidism, unspecified type Take 1 tablet by mouth once daily. Take on empty stomach 90 tablet 3 12/23/2024 Active Start: 03-26-2023 End: 02-20-2024 take 1 tablet by mouth once daily levothyroxine (SYNTHROID) 112 mcg tablet Indications: Hypothyroidism, unspecified type Take 1 tablet by mouth once daily. 90 tablet 3 12/18/2023 02/20/2024 Discontinued (Dosage adjustment) Start: 08-13-2021 End: 07-24-2022 take 1 tablet by mouth once daily levothyroxine (SYNTHROID) 112 mcg tablet Indications: Hypothyroidism, unspecified type Take 1 tablet by mouth once daily. 90 tablet 3 07/24/2022 Active Start: 08-29-2020 LEVOTHYROXINE SODIUM 112 MCG TABS 1 tablet once daily LEVOTHYROXINE SODIUM [id number] Patricia Paul Comment on above: TAKE 1 TABLET BY VINNY TH ONCE DAILY Take 1 tablet by vinny th once daily. Take 1 tablet by vinny th once daily. Take on empty stomach metoprolol tartrate 25 mg oral tablet (20 sources) beta-Adrenergic Pritesh Start: 05-14-2023 take 12.5 mg by mouth twice daily Metoprolol Tartrate Active 12.5 MG PO TWICE A DAY May 14, 2023 12:00am Start: 04-20-2023 End: 08-07-2023 metoprolol tartrate, short a cting, (LOPRESSOR) 25 mg tablet Take 12.5 mg by mouth twice daily. New dose as of 05-26-23 (readmit orders) 0 04/20/2023 08/07/2023 Discontinued Start: 04-20-2023 take 0.5 tablet by m outh once daily at bedtime metoprolol tartrate, short acting, (LOPRESSOR) 25 mg tablet Take 0.5 tablets by mouth daily at bedtime. New dose as of April 20 2023 0 04/20/2023 Active Start: 04-09-2023 End: 05-14-2023 take 0.5 tablet by mouth once daily Metoprolol Tartrate (Lopressor) 50 mg tablet Discontinued 25 MG PO DAILY April 09, 2023 12:00am May 14, 2023 3:27pm half tab daily Start: 09-18-2022 End: 04-20-2023 metoprolol tartrate, short a cting, (LOPRESSOR) 25 mg tablet Take 1/2 tablet by mouth every 12 hours. New lower dose since in the hospital setting Sep 16Sep 18 90 tablet 3 09/25/2022 04/20/2023 Discontinued (Adjust Sig - Block E-Cancel) Start: 01-20-2022 take 1 tablet by vinny th twice daily metoprolol tartrate, short acting, (LOPRESSOR) 50 mg tablet TAKE 1 TABLET BY MOUTH TWICE DAILY 180 tablet 3 01/20/2022 Suspended Comment on above: TAKE 1 TABLET BY VINNY TH TWICE DAILY Take 1/2 tablet by m outh every 12 hours. New lower dose since in the hospital setting Sep 16Sep 18 Take 0.5 tablets by mouth daily at bedtime. New dose as of April 20 2023 Take 12.5 mg by mout h twice daily. New dose as of 05-26-23 (readmit orders) Multivitamin preparation (5 sources) Start: 3 take 1 tablet by mouth once daily Multivitamin Active 1 TABLET PO DAILY April 09, 2023 12:00am MULTIVITAMIN TABLET (20 sources) Start: 4 take 1 tablet by mouth once daily MULTIVITAMIN TABLET Take 1 tablet by mouth once daily. 0 12/05/2003 Active Start: 12-05-2003 take 1 tablet by vinny th once daily MULTIVITAMIN TABLET Take 1 tablet by mouth once daily. 0 12/05/2003 Suspended Start: 12-05-2003 MULTIVITAMIN T ABLET Take one(1) tablet daily. 0 12/05/2003 Active Comment on above: Take one(1) tablet d aily. Take 1 tablet by vinny th once daily. nitroglycerin 0.4 mg sublingual tablet (20 sources) Nitrate Vasodilator nitroglyceri n sublingual (NITROQUICK) 0.4 mg SL tablet nitroglycerin 0.4 mg sublingual tablet Active End: 08-22-2022 nitroglycerin sublingual (NI TROQUICK) 0.4 mg SL tablet Dissolve 0.4 mg under the tongue every 5 minutes as needed. Per hospital discharge 08/01/2021 0 08/22/2022 Discontinued (Erroneous entry) Comment on above: Dissolve 0.4 mg unde r the tongue every 5 minutes as needed. Per hospital discharge 08/01/2021 nitroglycerin 0.4 mg sublingual tablet polyethylene glycol [id number] mg powder for oral solution (20 sources) Osmotic Laxative Start: End: Polyethylene Glycol 3350 (Miralax) 17 gram/dose powder Active 17 GM PO DAILY 238 May 20, 2023 4:41pm Comment on above: Take by mouth once d aily. Dissolve dose in 4 - 8 ounces of liquid and take as directed. 1/2 capful every other day Take 17 g by mouth o nce daily as needed for constipation. Dissolve dose in 4 - 8 ounces of liquid and take as directed. 1/2 capful every other day Take 17 g by mouth o nce daily as needed for constipation. Dissolve dose in 4 - 8 ounces of liquid and take as directed. microencapsulated potassium chloride 20 meq extended release oral tablet (5 sources) Start: End: take 1 tablet by mouth once daily potassium chloride ER (K-DUR, KLOR-CON) 20 mEq tablet Take 1 tablet by mouth once daily for 10 days. 10 tablet 0 07/09/2022 07/19/2022 Active Comment on above: Take 1 tablet by vinny th once daily for 10 days. prochlorperazine 10 mg oral tablet (20 sources) Phenothiazine Start: 023 take 1 tablet by mouth twice daily Prochlorperazine Maleate (Compazine) 10 mg tablet Active 10 MG PO TWICE A DAY May 22, 2023 12:00am Start: 12-04-2022 End: 06-12-2023 take 1 tablet by mouth every six hours Prochlorperazine Maleate (Compazine) 10 mg tablet Discontinued 10 MG PO EVERY 6 HOURS April 09, 2023 12:00am May 14, 2023 3:28pm Comment on above: Take 1 tablet by vinny th every 6 hours as needed. Take 10 mg by mouth every 6 hours as needed for nausea/vomiting. rivaroxaban 20 mg oral tablet (20 sources) Factor Xa Inhibitor Start: 09-18-2022 End: 12-23-2024 take 1 tablet by mouth once daily at dinner rivaroxaban (XARELTO) 20 mg tablet Take 1 tablet by mouth daily with dinner. Resume Sep 20 2022 90 tablet 3 12/23/2024 Active Start: 09-18-2021 take 1 tablet by vinny th once daily at dinner XARELTO 20 mg tablet TAKE 1 TABLET BY MOUTH DAILY WITH DINNER 90 tablet 2 07/23/2022 Suspended Comment on above: Take 1 tablet by vinny th daily with dinner. TAKE 1 TABLET BY VINNY TH DAILY WITH DINNER Take 1 tablet by vinny th daily with dinner. Resume Sep 20 2022 traZODone hydrochloride 50 mg oral tablet (7 sources) Serotonin Reuptake Inhibitor Start: 05-29-20 End: 06-28-20 take 1 tablet by mouth once daily at bedtime traZODone (DESYREL) 50 mg tablet Take 1 tablet by mouth daily at bedtime. New as of May 29 2022 30 tablet 3 05/29/2022 06/28/2022 Active Comment on above: Take 1 tablet by vinny th daily at bedtime. New as of May 29 2022 vitamin b12 1 mg oral capsule (20 sources) Vitamin B12 Start: 04-09-20 take 1000 ug by mouth once daily Cyanocobalamin (Vitamin B-12) Active 1000 MCG PO DAILY April 09, 2023 12:00am Start: 08-29-2020 End: 08-22-2022 take 1 tablet by mouth once daily cyanocobalamin (VITAMIN B-12) 1,000 mcg tab Take 1,000 mcg by mouth once daily. 0 11/22/2020 08/22/2022 Discontinued (Erroneous entry) Comment on above: Take 1 tablet by vinny th once daily. As per recommendation of the patients net making supervisor within the [facility] in [facility] Take 1,000 mcg by mo uth once daily. Completed/Discontinued Medications Medication Drug Class(es) Dates Sig (Normalized) Sig (Original) Acetaminophen (20 sources) End: 06-16-2024 take 3 g by mouth every twenty-four hours ACETAMINOPHEN ORAL Take by mouth. Do not exceed 3 grams (3000mg) in 24 hours 06/16/2024 Discontinued End: 06-16-2024 take 3 g by mouth every twenty-four hours ACETAMINOPHEN ORAL Take by mouth. Do not exceed 3 grams (3000mg) in 24 hours 0 06/16/2024 Discontinued take 3 g by mouth mikki krishnamurthy twenty-four hours ACETAMINOPHEN ORAL Take by mouth. Do not exceed 3 grams (3000mg) in 24 hours 0 Active Comment on above: Take by mouth. Do no t exceed 3 grams (3000mg) in 24 hours Acetaminophen / diphenhydrAMINE (20 sources) Histamine-1 Receptor Antagonist End: 06-10-2022 acetaminophen/diphenhyd ramine (TYLENOL PM ORAL) Take by mouth as needed. 0 06/10/2022 Discontinued (Other) acetaminophen/di phenhydramine (TYLENOL PM ORAL) Take by mouth as needed. 0 Active acetaminophen/di phenhydramine (TYLENOL PM ORAL) Take by mouth. 0 Active Comment on above: Take by mouth. Take by mouth as nee ded. PEDIATRIC MULTIPLE VITAMINS (1 source) Vitamin A, Vitamin B12, Vitamin D, Vitamin C Start: 0 MULTI-DELYN LIQD daily as directed PEDIATRIC MULTIPLE VITAMINS [id number] Eugenia Morgan LPN 0.4 ml darbepoetin marilu 0.5 mg/ml prefilled syringe (12 sources) Erythropoiesis-s timulating Agent Start: End: inject 1 dose by subcutaneous injection once 200 mcg, SUBCUTANEOUS, ONCE, 1 dose, On Thu06/09/25 at 1000, Protect from light REFRIGERATE Start: 05-26-2025 End: 05-26-2025 inject 1 dose by subcutaneous injection once 200 mcg, SUBCUTANEOUS, ONCE, 1 dose, On Thu05/26/25 at 1000, Protect from light REFRIGERATE Start: 05-11-2025 End: 05-11-2025 inject 1 dose by subcutaneous injection once 200 mcg, SUBCUTANEOUS, ONCE, 1 dose, On Thu05/11/25 at 1000, Protect from light REFRIGERATE Start: 04-28-2025 End: 04-28-2025 inject 1 dose by subcutaneous injection once 200 mcg, SUBCUTANEOUS, ONCE, 1 dose, On Thu04/28/25 at 1000, Protect from light REFRIGERATE Start: 03-17-2025 End: 03-17-2025 inject 1 dose by subcutaneous injection once 200 mcg, SUBCUTANEOUS, ONCE, 1 dose, On Thu03/17/25 at 1400, Protect from light REFRIGERATE Start: 02-17-2025 End: 02-17-2025 inject 1 dose by subcutaneous injection once 200 mcg, SUBCUTANEOUS, ONCE, 1 dose, On Thu02/17/25 at 1000, Protect from light REFRIGERATE Start: 02-03-2025 End: 02-03-2025 inject 1 dose by subcutaneous injection once 200 mcg, SUBCUTANEOUS, ONCE, 1 dose, On Thu02/03/25 at 1030, Protect from light REFRIGERATE Start: 01-20-2025 End: 01-20-2025 inject 1 dose by subcutaneous injection once 200 mcg, SUBCUTANEOUS, ONCE, 1 dose, On Thu01/20/25 at 1030, Protect from light REFRIGERATE Start: 01-06-2025 End: 01-06-2025 inject 1 dose by subcutaneous injection once 200 mcg, SUBCUTANEOUS, ONCE, 1 dose, On Thu01/06/25 at 1100, Protect from light REFRIGERATE Start: 12-23-2024 End: 12-23-2024 inject 1 dose by subcutaneous injection once 200 mcg, SUBCUTANEOUS, ONCE, 1 dose, On Thu12/23/24 at 1030, Protect from light REFRIGERATE Start: 12-09-2024 End: 12-09-2024 inject 1 dose by subcutaneous injection once 200 mcg, SUBCUTANEOUS, ONCE, 1 dose, On Thu12/09/24 at 1130, Protect from light REFRIGERATE Start: 11-24-2024 End: 11-24-2024 inject 1 dose by subcutaneous injection once 200 mcg, SUBCUTANEOUS, ONCE, 1 dose, On Thu11/24/24 at 1330, Protect from light REFRIGERATE digoxin 0.125 mg oral tablet (20 sources) Cardiac Glycoside Start: 04-21-2023 End: 07-23-2023 take 1 tablet by mouth once daily digoxin (LANOXIN) 125 mcg (0.125 mg) tablet Indications: PAF (paroxysmal atrial fibrillation) ([facility]) Take 1 tablet by mouth once daily. 30 tablet 5 04/21/2023 07/23/2023 Discontinued Comment on above: Take 1 tablet by [facility] once daily. diphenhydrAMINE hydrochloride 25 mg / naproxen sodium 220 mg oral tablet (1 source) Histamine-1 Receptor Antagonist, Nonsteroidal Anti-inflammatory Drug Start: 08-29-2020 ALEVE PM 220-25 MG TABS 2 tablets once daily as directed NAPROXEN SOD-DIPHENHYDRAMIN E [id number] Patricia Paul ferrous sulfate 325 mg oral tablet (20 sources) Start: 03-18-2022 End: 09-30-2023 ferrous sulfate 325 mg (65 mg iron) tablet Take 325 mg by mouth once daily. Daily since DC from Hospital 05/18 0 03/18/2022 09/30/2023 Discontinued Start: 03-18-2022 take 1 tablet by vinny th three times daily at mealtime ferrous sulfate 325 mg (65 mg iron) tablet Take 325 mg by mouth three times daily with meals. 0 03/18/2022 Active Start: 03-18-2022 take 1 tablet by vinny th three times daily at mealtime ferrous sulfate 325 mg (65 mg iron) tablet Take 1 tablet by mouth three times daily with meals. New dose as of Mar 18 2022 0 03/18/2022 Active Start: 08-14-2021 End: 03-18-2022 take 1 tablet by mouth twice daily at mealtime FEROSUL 325 mg (65 mg iron) tablet TAKE 1 TABLET BY MOUTH TWICE DAILY WITH MEALS. DO NOT TAKE WITHIN 2 HOURS OF COUMADIN OR SYNTHROID. 60 tablet 3 02/17/2022 03/18/2022 Discontinued (Course of therapy completed) Comment on above: Take 1 tablet by vinny th twice daily with meals. Do not take within 2 hours of Coumadin or Synthroid. Take 1 tablet by vinny th three times daily with meals. New dose as of Mar 18 2022 Take 325 mg by mouth three times daily with meals. Take 325 mg by mouth once daily. Daily since DC from Hospital 05/18 [employer] FRIEND 10 MG LOZENGE (1 source) Start: 09-27-20 20 [employer]END 10 MG LOZENGE once daily as directed [employer]MAN[employer] FRIEND 10 MG LOZENGE Eugenia Morgan LPN folic acid 1 mg / omega-3 acid ethyl esters (halfway) 500 mg / phytosterols 200 mg / pyridoxine hydrochloride 12.5 mg / vitamin b 12 0.5 mg oral capsule (1 source) Vitamin B12 Start: 09-27-20 ANIMI-3 1 MG CAPS 1 capsule daily [id number] 3-PHYTOSTER [id number] Eugenia Morgan COPRA SAMPLER folic acid 1 mg / vitamin b12 0.5 mg oral tablet (1 source) Vitamin B12 End: 12-04-19 Vitamin L67-Eurrh Acid 0.5-1 mg tab Vitamin B12 0 12/04/2022 Discontinued (Duplicate Entry) Comment on above: Vitamin B12 gabapentin 300 mg oral capsule (5 sources) Anti-epileptic Agent Start: 05-08-20 End: 08-06-20 take 1 capsule by mouth three times daily gabapentin (NEURONTIN) 300 mg capsule Indications: Spinal stenosis of lumbar region with neurogenic claudication Take 1 capsule by mouth three times daily for 90 days. 90 capsule 2 05/08/2022 05/29/2022 Discontinued (Course of therapy completed) Comment on above: Take 1 capsule by mo [facility] three times daily for 90 days. lidocaine 25 mg/ml / prilocaine 25 mg/ml topical cream (20 sources) Antiarrhythmic, Amide Local Anesthetic Start: 12-04-19 End: 06-12-20 lidocaine-prilocaine (EMLA) 2.5-2.5 % cream Apply to port site about 45 mintues prior to treatment and cover 30 g 3 12/04/2022 06/12/2023 Discontinued Comment on above: Apply to port site a bout 45 mintues prior to treatment and cover melatonin 5 mg disintegrating oral tablet (20 sources) End: 07-24-20 melatonin 5 mg ODT Take 1 tablet by mouth. 0 07/24/2022 Discontinued (Course of therapy completed) End: 05-29-2022 take 1 tablet by mouth every twenty-four hours as needed melatonin 5 mg tablet Take 5 mg by mouth at bedtime as needed. 0 05/29/2022 Discontinued (Course of therapy completed) Comment on above: Take 5 mg by mouth d aily at bedtime. Take 5 mg by mouth a t bedtime as needed. Take 1 tablet by vinny th. metOLazone 2.5 mg oral tablet (7 sources) Thiazide-like Diuretic Start: 05-08-2025 End: 05-23-2025 take 1 tablet by mouth three times weekly metOLazone (ZAROXOLYN) 2.5 mg tablet Indications: Lymphedema of right lower extremity Take 1 tablet by mouth three times a week for 6 doses. 6 tablet 05/08/2025 05/23/2025 Discontinued (Course of therapy completed) Start: 04-06-2025 End: 04-25-2025 take 1 tablet by mouth three times weekly metOLazone (ZAROXOLYN) 2.5 mg tablet Indications: Lymphedema of right lower extremity Take 1 tablet by mouth three times a week. 12 tablet 04/06/2025 04/25/2025 Discontinued (Course of therapy completed) miconazole nitrate 0.02 mg/mg topical powder (12 sources) Azole Antifungal Start: 07-09-2022 End: 08-22-2022 miconazole (LOTRIMIN AF, DESENEX) 2 % powder Apply 1 application to affected area twice daily. 85 g 0 07/09/2022 08/22/2022 Discontinued (Erroneous entry) Comment on above: Apply 1 application to affected area twice daily. MULTIPLE VITAMINS-MINERALS (1 source) Start: 08-29-2020 ONE DAILY MULTIVITAMIN ADULT TABS 1 tablet once daily MULTIPLE VITAMINS-MINERALS [id number] Patricia Paul naproxen sodium 220 mg oral capsule (1 source) Nonsteroidal Anti-inflammatory Drug Start: 09-27-2020 ALEVE 220 MG CAPS daily as directed NAPROXEN SODIUM [id number] Eugenia Morgan LPN OMEGA-3 FATTY ACIDS (1 source) Start: 08-29-2020 FISH OIL 1000 MG CAPS 1 capsule once daily OMEGA-3 FATTY ACIDS [id number] Patricia Paul ondansetron 8 mg oral tablet (20 sources) Serotonin-3 Receptor Antagonist Start: 12-04-2022 End: 06-12-2023 take 1 tablet by mouth every eight hours as needed ondansetron (ZOFRAN) 8 mg tablet Take 1 tablet by mouth every 8 hours as needed. 30 tablet 5 12/04/2022 06/12/2023 Discontinued Comment on above: Take 1 tablet by [facility] every 8 hours as needed. predniSONE 10 mg oral tablet (12 sources) Start: 12-23-2023 End: 01-01-2024 predniSONE (DELTASONE) 10 mg tablet Indications: Right elbow pain , Monoarthritis of elbow, right Take 4 tabs daily for 3 days, then 2 tabs daily for 3 days, then 1 tab daily for 3 days with food. 21 tablet 12/23/2023 01/01/2024 Start: 05-29-2022 End: 06-10-2022 predniSONE (DELTASONE) 10 mg tablet Take 4 tabs daily for 3 days, then 2 tabs daily for 3 days, then 1 tab daily for 3 days with food. 21 tablet 1 05/29/2022 06/10/2022 Discontinued Comment on above: Take 4 tabs daily fo r 3 days, then 2 tabs daily for 3 days, then 1 tab daily for 3 days with food. SENNOSIDES-DOCUSATE SODIUM ORAL (3 sources) End: 09-19-2024 SENNOSIDES-DOCUSATE SODIUM ORAL Take by mouth as needed (constipation). 09/19/2024 Discontinued SENNOSIDES-DOCUS ATE SODIUM ORAL Take by mouth as needed (constipation). Active sennosides/docusate sodium (SENNA PLUS ORAL) (20 sources) End: 06-16-2024 sennosides/docusate sodium (SENNA PLUS ORAL) Take 2 tablets by mouth as needed. 06/16/2024 Discontinued End: 06-16-2024 sennosides/docusate sodium ( SENNA PLUS ORAL) Take 2 tablets by mouth as needed. 0 06/16/2024 Discontinued sennosides/docus ate sodium (SENNA PLUS ORAL) Take 2 tablets by mouth as needed. 0 Active take 2 tablets by mo uth twice daily sennosides/docusate sodium (SENNA PLUS ORAL) Take 2 tablets by mouth twice daily. 0 Active Comment on above: Take 2 tablets by mo uth twice daily. Take 2 tablets by mo uth as needed. 125 ml sodium chloride 9 mg/ml prefilled syringe (1 source) Start: 07-17-2022 End: 07-17-2022 sodium chloride 0.9 % (flush) 2-10 mL (BD POSIFLUSH) Start: 07-17-2022 End: 07-17-2022 sodium chloride 0.9 % (flush ) 2-10 mL (BD POSIFLUSH) spironolactone 25 mg oral tablet (20 sources) Aldosterone Antagonist Start: 07-10-2022 End: 10-01-2022 take 1 tablet by mouth once daily spironolactone (ALDACTONE) 25 mg tablet Take 1 tablet by mouth once daily. 90 tablet 3 08/14/2022 10/01/2022 Discontinued Comment on above: Take 1 tablet by vinny th once daily. Problems Active Problems Problem Classification Problem Date Documented Da te Episodic/Chronic Acute cerebrovascular disease (20 sources) Cerebrovascular accident; Translations: [Cerebral infarction, unspecified] Onset: 2 Resolved: 5 Chronic Aortic and peripheral arterial embolism or thrombosis (5 sources) Lower limb arterial embolus; Translations: [Atheroembolism of unspecified lower extremity] 05-14-2023 Chronic Bacterial infection; unspecified site (9 sources) Bacteremia caused by Gram-negative bacteria; Translations: [Bacteremia] 05-18-2023 Episodic Blindness and vision defects (2 sources) Diplopia; Translations: [Diplopia] Episodic Cardiac dysrhythmias (20 sources) Paroxysmal atrial fibrillation; Translations: [Paroxysmal atrial fibrillation] Onset: 8 Resolved: 5 08-14-2021 Chronic Complications of surgical procedures or medical care (1 source) Drug-induced hypotension; Translations: [Hypotension due to drugs] Episodic Conditions associated with dizziness or vertigo (2 sources) Postural dizziness; Translations: [Dizziness and giddiness] Episodic Conduction disorders (20 sources) Right bundle branch block; Translations: [Unspecified right bundle-branch block] Onset: 2 Resolved: 5 09-02-2021 Chronic Congestive heart failure; nonhypertensive (20 sources) Acute on chronic diastolic heart failure; Translations: [Acute on chronic diastolic (congestive) heart failure] Onset: 2 Resolved: 5 07-04-2022 Chronic Coronary atherosclerosis and other heart disease (20 sources) Coronary arteriosclerosis; Translations: [Atherosclerotic heart disease of [place] coronary artery without angina pectoris] Onset: 2 08-14-2021 Chronic Deficiency and other anemia (1 source) Anemia in neoplastic disease; 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)] Onset: 5 Chronic Deficiency and other anemia (6 sources) Anemia; Translations: [Anemia, unspecified] Episodic Deficiency and other anemia (8 sources) Macrocytic anemia; Translations: [Nutritional anemia, unspecified] Episodic Diseases of white blood cells (3 sources) Neutropenia due to and following chemotherapy; Translations: [Agranulocytosis secondary to cancer chemotherapy] Onset: 3 Chronic Disorders of lipid metabolism (20 sources) Mixed hyperlipidemia; Translations: [Mixed hyperlipidemia] Onset: 5 07-04-2005 Chronic Diverticulosis and diverticulitis (20 sources) Diverticular disease; Translations: [Diverticulosis of intestine, part unspecified, without perforation or abscess without bleeding] Onset: 3 Resolved: 4 08-14-2021 Chronic E Codes: Adverse effects of medical drugs (1 source) Adverse effect of antineoplastic and immunosuppressive drugs, initial encounter; Translations: [Chemotherapy-induced neutropenia (HCC)] Onset: 3 Episodic Essential hypertension (20 sources) Benign essential hypertension; Translations: [Essential (primary) hypertension] Onset: 2 Resolved: 4 01-12-2012 Chronic Genitourinary symptoms and ill-defined conditions (1 source) Urinary incontinence; Translations: [Unspecified urinary incontinence] Chronic Immunity disorders (10 sources) Patient immunocompromised; Translations: [Immunodeficiency, unspecified] 05-14-2023 Chronic Immunizations and screening for infectious disease (3 sources) Immunization due; Translations: [Encounter for immunization] Episodic Late effects of cerebrovascular disease (1 source) Abnormal gait; Translations: [Other sequelae of cerebral infarction] Chronic Leukemias (20 sources) Chronic myelomonocytic leukemia; 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] Onset: 3 Chronic Miscellaneous mental health disorders (1 source) Primary insomnia; 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] Chronic Nutritional deficiencies (20 sources) Vitamin D deficiency; Translations: [Vitamin D deficiency, unspecified] Onset: 0 Resolved: 4 07-11-2020 Chronic Occlusion or stenosis of precerebral arteries (20 sources) Occlusion of left vertebral artery; 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] Onset: 2 Resolved: 4 08-29-2022 Chronic Osteoarthritis (20 sources) Degenerative joint disease involving multiple joints; Translations: [Polyosteoarthritis, unspecified] Onset: 6 Resolved: 4 06-05-2006 Chronic Other circulatory disease (1 source) Abnormal peripheral pulse; Translations: [Other specified symptoms and signs involving the circulatory and respiratory systems] Episodic Other circulatory disease (1 source) Pleural friction rub; Translations: [Other specified symptoms and signs involving the circulatory and respiratory systems] 07-29-2024 Episodic Other connective tissue disease (1 source) Swelling of lower limb; Translations: [Other specified soft tissue disorders] Episodic Other connective tissue disease (2 sources) Bursitis of knee; Translations: [Other bursitis of knee, unspecified knee] Episodic Other connective tissue disease (1 source) Bilateral calf pain; Translations: [Pain in right lower leg] Episodic Other connective tissue disease (1 source) Pain in right foot; Translations: [Foot pain, right] Onset: 3 Episodic Other connective tissue disease (1 source) Swelling of upper limb; Translations: [Other specified soft tissue disorders] Episodic Other connective tissue disease (1 source) Pain in right lower limb; Translations: [Pain in right leg] Episodic Other diseases of veins and lymphatics (20 sources) Lymphedema of bilateral lower limbs; Translations: [Lymphedema, not elsewhere classified] Onset: 3 06-12-2023 Chronic Other diseases of veins and lymphatics (4 sources) Lymphedema of right lower limb; Translations: [Lymphedema, not elsewhere classified] 03-27-2025 Chronic Other diseases of veins and lymphatics (2 sources) Lymphedema, not elsewhere classified; Translations: [Lymphedema of right lower extremity] Onset: 3 Chronic Other gastrointestinal disorders (8 sources) Slow transit constipation; Translations: [Slow transit constipation] Episodic Other hereditary and degenerative nervous system conditions (20 sources) Restless legs; Translations: [Restless legs syndrome] Onset: 2 Chronic Other injuries and conditions due to external causes (3 sources) Multiple lacerations; Translations: [Other injury of unspecified body region, initial encounter] 05-26-2025 Episodic Other injuries and conditions due to external causes (1 source) Other injury of unspecified body region, initial encounter; Translations: [Multiple skin tears] Onset: 5 Episodic Other lower respiratory disease (1 source) Blue toes; Translations: [Cyanosis] Episodic Other lower respiratory disease (5 sources) Hypoxemia; Translations: [Hypoxemia] 05-14-2023 Episodic Other lower respiratory disease (5 sources) Hypoxemia; Translations: [Hypoxemia] 05-14-2023 Episodic Other lower respiratory disease (1 source) Cough; Translations: [Acute cough] 05-29-2023 Episodic Other lower respiratory disease (1 source) Dyspnea; Translations: [Shortness of breath] 09-27-2024 Episodic Other nervous system disorders (20 sources) Myasthenia gravis; Translations: [Myasthenia gravis without (acute) exacerbation] Onset: 2 Resolved: 4 04-19-2012 Chronic Other nervous system disorders (20 sources) Peripheral sensory gait disorder; Translations: [Other disorders of peripheral nervous system] Onset: 2 08-29-2022 Chronic Other nervous system disorders (1 source) Difficulty in walking, not elsewhere classified; Translations: [Difficulty in walking, not elsewhere classified] Onset: 4 Chronic Other nervous system disorders (1 source) Myasthenia gravis without (acute) exacerbation; Translations: [Myasthenia gravis (HCC)] Onset: 4 Chronic Other nervous system disorders (5 sources) Paresthesia; Translations: [Anesthesia of skin] Episodic Other nervous system disorders (1 source) Numbness; Translations: [Anesthesia of skin] Episodic Other nervous system disorders (2 sources) Abnormal gait; Translations: [Unsteadiness on feet] Episodic Other non-traumatic joint disorders (2 sources) Monoarthritis, not elsewhere classified, right elbow; Translations: [Unspecified monoarthritis, upper arm] 12-23-2023 Chronic Other non-traumatic joint disorders (4 sources) Ankle edema; Translations: [Effusion, right ankle] Episodic Other non-traumatic joint disorders (2 sources) Pain in right knee; Translations: [Pain in joint, lower leg] Episodic Other non-traumatic joint disorders (2 sources) Pain in elbow; Translations: [Pain in right elbow] 12-23-2023 Episodic Other non-traumatic joint disorders (1 source) Arthritis of right ankle; Translations: [Primary osteoarthritis, right ankle and foot] Onset: 0 09-28-2020 Other upper respiratory infections (1 source) Viral upper respiratory tract infection; Translations: [Acute upper respiratory infection, unspecified] 07-29-2024 Episodic Phlebitis; thrombophlebitis and thromboembolism (1 source) Axillary vein thrombosis; 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 Residual codes; unclassified (20 sources) Hypoxia; Translations: [Idiopathic sleep related nonobstructive alveolar hypoventilation] Onset: 3 Resolved: 4 08-14-2021 Chronic Residual codes; unclassified (1 source) Swelling - edema - symptom; Translations: [Edema, unspecified] Onset: 0 09-28-2020 Episodic Residual codes; unclassified (2 sources) Clouded consciousness; Translations: [Disorientation, unspecified] Episodic Residual codes; unclassified (1 source) Localized edema; Translations: [Pedal edema] Onset: 3 Episodic Residual codes; unclassified (1 source) H/O: Disorder; Translations: [Personal history of other specified conditions] 06-12-2023 Episodic Septicemia (except in labor) (10 sources) Sepsis; Translations: [Sepsis, unspecified organism] 05-14-2023 Episodic Spondylosis; intervertebral disc disorders; other back problems (2 sources) Arthropathy of lumbar facet joint; Translations: [Spondylosis without myelopathy or radiculopathy, lumbar region] Onset: 2 Chronic Superficial injury; contusion (1 source) Contusion of foot; Translations: [Contusion of right foot, initial encounter] Episodic Thyroid disorders (20 sources) Hypothyroidism; Translations: [Hypothyroidism, unspecified] Onset: 5 01-29-2016 Chronic Unclassified (2 sources) Established Patient Onset: 3 Unclassified (1 source) Chronic atrial fibrillation, unspecified; Translations: [Chronic atrial fibrillation (HCC)] Onset: 5 Past or Other Problems Problem Classification Problem Date Documented Da te Episodic/Chronic Administrative/social admission (20 sources) Patient encounter status; Translations: [Other specified counseling] Onset: 08-11-2005 Resolved: 01-02-2015 Episodic Allergic reactions (20 sources) Radiation-induced dermatosis; Translations: [Other skin changes due to chronic exposure to nonionizing radiation] Onset: 04-07-2008 Resolved: 01-02-2015 01-02-2015 Episodic Cardiac dysrhythmias (20 sources) Bradycardia; Translations: [Bradycardia, unspecified] Onset: 09-15-2022 Resolved: 09-18-2022 09-17-2022 Episodic Deficiency and other anemia (2 sources) Nutritional anemia, unspecified; Translations: [Macrocytic anemia] Onset: 10-24-2022 Episodic Inflammation; infection of eye (except that caused by tuberculosis or sexually transmitteddisease) (1 source) Hordeolum externum right lower eyelid; Translations: [Hordeolum externum right lower eyelid] Onset: 06-01-2024 Episodic Malaise and fatigue (20 sources) Asthenia; Translations: [Weakness] Onset: 09-15-2022 Resolved: 01-22-2024 09-15-2022 Episodic Neoplasms of unspecified nature or uncertain behavior (20 sources) Myelodysplastic syndrome (clinical); Translations: [Myelodysplastic syndrome, unspecified] Onset: 11-26-2022 Resolved: 03-17-2024 Episodic Nutritional deficiencies (20 sources) Cobalamin deficiency; Translations: [Deficiency of other specified B group vitamins] Onset: 07-11-2020 07-11-2020 Episodic Other aftercare (20 sources) Long-term current use of anticoagulant; Translations: [USP (current) use of anticoagulants] Onset: 01-05-2023 Resolved: 01-05-2023 08-14-2021 Episodic Other aftercare (20 sources) Surgical follow-up; Translations: [Follow-up examination following surgery] Onset: 10-31-2003 Resolved: 01-02-2015 01-02-2015 Episodic Other aftercare (2 sources) USP (current) use of anticoagulants; Translations: [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 (current) use of anticoagulants] Onset: 01-05-2023 Episodic Other circulatory disease (17 sources) History of cerebrovascular accident; Translations: [Personal history of transient ischemic attack (TIA), and cerebral infarction without residual deficits] Onset: 08-22-2022 03-22-2025 Episodic Other connective tissue disease (20 sources) History of operative procedure on shoulder; Translations: [Presence of unspecified artificial shoulder joint] Onset: 02-08-2015 Resolved: 06-16-2023 02-08-2015 Chronic Other diseases of veins and lymphatics (20 sources) Venous insufficiency of leg; Translations: [Other specified disorders of veins] Onset: 07-11-2020 Resolved: 07-29-2024 07-11-2020 Episodic Other diseases of veins and lymphatics (1 source) Other specified disorders of veins; Translations: [Venous stasis of both lower extremities] Onset: 09-19-2024 Episodic Other hematologic conditions (20 sources) Macrocytosis; Translations: [Other specified diseases of blood and blood-forming organs] Onset: 07-11-2020 Resolved: 06-16-2023 07-11-2020 Chronic Other hematologic conditions (20 sources) History of anemia; Translations: [Personal history of diseases of the blood and blood-forming organs and certain disorders involving the immune mechanism] Onset: 07-16-2023 Resolved: 06-16-2023 08-14-2021 Episodic Other hematologic conditions (1 source) Personal history of diseases of the blood and blood-forming organs and certain disorders involving the immune mechanism; Translations: [History of anemia] Onset: 07-16-2023 Episodic Other inflammatory condition of skin (20 sources) Pruritus, unspecified; Translations: [Unspecified pruritic disorder] Onset: 12-14-2012 Resolved: 01-02-2015 01-02-2015 Episodic Other injuries and conditions due to external causes (20 sources) Injury of ulnar nerve; Translations: [Injury of ulnar nerve at forearm level, unspecified arm, initial encounter] Onset: 09-21-2003 Resolved: 06-16-2023 03-04-2004 Episodic Other lower respiratory disease (2 sources) Shortness of breath; Translations: [Shortness of breath] Onset: 09-27-2024 Episodic Other male genital disorders (20 sources) Male erectile dysfunction, unspecified; Translations: [Impotence of organic origin] Onset: 08-13-2010 Resolved: 06-16-2023 08-13-2010 Chronic Other screening for suspected conditions (not mental disorders or infectious disease) (2 sources) Encounter for screening for cardiovascular disorders; Translations: [Encounter for screening for cardiovascular disorders] Onset: 09-27-2024 Episodic Other skin disorders (20 sources) Seborrheic keratosis; Translations: [Other seborrheic keratosis] Onset: 04-07-2008 Resolved: 01-02-2015 01-02-2015 Episodic Other skin disorders (20 sources) Disorder of skin pigmentation; Translations: [Disorder of pigmentation, unspecified] Onset: 04-07-2008 Resolved: 01-02-2015 01-02-2015 Episodic Other skin disorders (20 sources) Actinic keratosis; Translations: [Actinic keratosis] Onset: 04-07-2008 Resolved: 01-02-2015 01-02-2015 Episodic Other skin disorders (20 sources) Inflamed seborrheic keratosis; Translations: [Inflamed seborrheic keratosis] Onset: 09-29-2010 Resolved: 01-02-2015 01-02-2015 Episodic Other skin disorders (20 sources) Asteatosis cutis; Translations: [Xerosis cutis] Onset: 12-14-2012 Resolved: 01-02-2015 01-02-2015 Episodic Other skin disorders (20 sources) Solar lentigo; Translations: [Other melanin hyperpigmentation] Onset: 12-14-2012 Resolved: 01-02-2015 01-02-2015 Episodic Phlebitis; thrombophlebitis and thromboembolism (20 sources) Acute deep venous thrombosis; Translations: [Acute embolism and thrombosis of unspecified vein] Onset: 05-05-2023 Resolved: 07-29-2024 05-21-2023 Episodic Residual codes; unclassified (20 sources) Insomnia; Translations: [Insomnia, unspecified] Onset: 08-13-2010 Resolved: 06-16-2023 08-13-2010 Episodic Residual codes; unclassified (20 sources) History of colonoscopy; Translations: [Other specified postprocedural states] Onset: 09-27-2015 Resolved: 01-22-2024 08-14-2021 Episodic Residual codes; unclassified (20 sources) H/O cardiac surgery; Translations: [Other specified postprocedural states] Onset: 07-10-2021 Resolved: 07-29-2024 08-14-2021 Episodic Residual codes; unclassified (20 sources) Past history of procedure; Translations: [Personal history of other medical treatment] Onset: 09-16-2022 10-13-2024 Episodic Residual codes; unclassified (1 source) Other specified postprocedural states; Translations: [Status post ligation of left atrial appendage] Onset: 09-19-2024 Episodic Skin and subcutaneous tissue infections (20 sources) Cellulitis of lower leg; Translations: [Cellulitis of right lower limb] Onset: 05-14-2023 Resolved: 02-20-2024 05-14-2023 Episodic Spondylosis; intervertebral disc disorders; other back problems (20 sources) Spinal stenosis of lumbar region; 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, lumbar region with neurogenic claudication] Onset: 06-28-2009 Resolved: 06-16-2023 07-11-2020 Episodic Unclassified (1 source) Problem Viral infection (20 sources) Verruca vulgaris; Translations: [Viral wart, unspecified] Onset: 09-29-2010 Resolved: 01-02-2015 01-02-2015 Episodic Results Test Name Value Interpretation Reference Range [id number] SRINI LUIS ([id number]) 1935 M Date Time Provider Department 06/16/25 IRAM JOHNSON [id number] During your visit today, we recorded the following information about you: Ginna Orellana 06/16/2025 11:40 AM Signed Patient is calling and stating that he has had increased swelling in his left leg and foot. Right ankle there are some leaking fluid coming out. He doesn't know what to do as his PCP is away and they told him to call us to see what to do. Can you let him know what he needs to do Iram Johnson, MANAGER DAIRY.[employer] SALES REPRESENTATIVE 06/16/2025 2:08 PM Signed His Lasix order says that he can take an extra 20 mg of Lasix daily if his swelling increases. Has he been doing that? Lakesha Pabon MA 06/16/2025 2:54 PM Signed Pt called in stating he has only been taking only 20mg twice daily. He has not been taking any extra Iram Johnson, MANAGER DAIRY.[employer] SALES REPRESENTATIVE 06/16/2025 3:30 PM Signed Tell the patient to start taking an extra Lasix daily until his legs are back to baseline. If his legs are not back to baseline within 5 days, let us know. Lakesha Pabon MA 06/16/2025 3:49 PM Signed Pt called and notified per iram Tell the patient to start taking an extra Lasix daily until his legs are back to baseline. If his legs are not back to baseline within 5 days, let us know. Pt agreeable Allergies As of Date: 06/16/2025 Noted Allergy Reaction SIMVASTATIN 08/17/2012 14 - Other: See Comments Comments: Elevated CK Date Reviewed: 06/09/2025 Reviewed by: Esha Jackson LPN - Fully Assessed Reason for Visit: Information [1328] Prescriptions as of 06/16/2025 - furosemide (LASIX) 40 mg tablet Take 0.5 tablets by mouth two times a day. AM and noon. Okay to take an extra 0.5 tab in the AM if swelling increases (no more than two days) - atorvastatin (LIPITOR) 20 mg tablet Take 1 tablet by mouth once daily. - rivaroxaban (XARELTO) 20 mg tablet Take 1 tablet by mouth daily with dinner. Resume Sep 20 2022 - levothyroxine (SYNTHROID) 100 mcg tablet Take 1 tablet by mouth once daily. Take on empty stomach - cholecalciferol (VITAMIN D3) 1,000 unit tab tablet Take by mouth once daily. - folic acid 1 mg tablet Take 1 tablet by mouth once daily. - ADULT LOW DOSE ASPIRIN ORAL Take 81 mg by mouth once daily. - nitroglycerin sublingual (NITROQUICK) 0.4 mg SL tablet nitroglycerin 0.4 mg sublingual tablet - cyanocobalamin (VITAMIN B-12) 1,000 mcg tab Take 1,000 mcg by mouth once daily. - polyethylene glycol 3350 (MIRALAX, GLYCOLAX) 17 gram packet Take 17 g by mouth once daily as needed for constipation. Dissolve dose in 4 - 8 ounces of liquid and take as directed. - MULTIVITAMIN TABLET Take 1 tablet by mouth once daily. 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9] 04/07/2008 01/02/2015 ACTINIC KERATOSIS (Premalignant AK) [L57.0] 04/07/2008 01/02/2015 Primary localized osteoarthrosis, shoulder laurence*09/21/2008 06/16/2023 Osteoarthrosis, unspecified whether generalized*12/14/2008 06/16/2023 Follow-Up Examination, Following Unspecified Servin*06/11/2009 08/14/2009 Spinal stenosis of lumbar region with neurogeni*06/28/2009 Insomnia [G47.00] 08/13/2010 06/16/2023 Erectile dysfunction [N52.9] 08/13/2010 06/16/2023 Viral warts, unspecified [B07.9] 09/29/2010 01/02/2015 Irritated//Inflamed Seborrheic Keratosis [L82.0]09/29/2010 01/02/2015 Back pain [M54.9] 01/09/2012 06/16/2023 Essential hypertension, benign [I10] 01/12/2012 01/22/2024 Myasthenia gravis (HCC) [G70.00] 04/19/2012 09/15/2022 Xerosis cutis [L85.3] 12/14/2012 01/02/2015 Pruritus [L29.9] 12/14/2012 01/02/2015 Actinic skin damage [L57.8] 12/14/2012 01/02/2015 Solar lentigo [L81.4] 12/14/2012 01/02/2015 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 Normal [facility] CBC W Auto Differential pane l (Bld)on 06-09-2025 Basophils (Bld) [#/Vol] 0.07 10*3/uL Normal <0.11 [facility] Comment on above: Order Comment: Speci men Type: BLOOD SPECIMENOrdering Facility: [facility] Address: [address] [place] [address] Performed By: #### 5 7021-8 ####[facility] [id number] [place] [address] [place] Basophils/100 WBC (Bld) 1.0 % Normal [facility] Comment on above: Order Comment: Speci men Type: BLOOD SPECIMENOrdering Facility: [facility] Address: [address] [place] [address] Performed By: #### 5 7021-8 ####[facility] [id number] [place] [address] [place] Differential cell count method Nom (Bld) Auto Normal [facility] Comment on above: Order Comment: Speci men Type: BLOOD SPECIMENOrdering Facility: [facility] Address: [address] [place] [address] Performed By: #### 5 7021-8 ####[facility] JONHWilliamsNCRADHA [id number] [place] [address] [place] Eosinophils (Bld) [#/Vol] 0.07 10*3/uL Normal <0.46 [facility] Comment on above: Order Comment: Speci men Type: BLOOD SPECIMENOrdering Facility: [facility] Address: [address] [place] [address] Performed By: #### 5 7021-8 ####[facility]GROBERTManuel [id number] [place] [address] [place] Eosinophils/100 WBC (Bld) 1.0 % Normal [facility] Comment on above: Order Comment: Speci men Type: BLOOD SPECIMENOrdering Facility: [facility] Address: [address] [place] [address] Performed By: #### 5 7021-8 ####[facility] PET[facility]BURGNCA [id number] [place] [address] [place] Erythrocyte distribution width (RBC) [Ratio] 26.0 % High 11.5-15.0 [facility] Comment on above: Order Comment: Speci men Type: BLOOD SPECIMENOrdering Facility: [facility] Address: [address] [place] [address] Performed By: #### 5 7021-8 ####[facility]GNCL[facility] [id number] [place] [address] [place] Hematocrit (Bld) [Volume fraction] 26.9 % Low 39.0-51.0 [facility] Comment on above: Order Comment: Speci men Type: BLOOD SPECIMENOrdering Facility: [facility] Address: [address] [place] [address] Performed By: #### 5 7021-8 ####[facility]CL[facility] [id number] [place] [address] [place] Hemoglobin (Bld) [Mass/Vol] 9.0 g/dL Low 13.0-17.0 [facility] Comment on above: Order Comment: Speci men Type: BLOOD SPECIMENOrdering Facility: [facility] Address: [address] [place] [address] Performed By: #### 5 7021-8 ####[facility] HOSPITALLIA [id number] [place] [address] [place] Immature granulocytes (Bld) [#/Vol] 0.05 10*3/uL Normal <0.10 [facility] Comment on above: Order Comment: Speci men Type: BLOOD SPECIMENOrdering Facility: [facility] Address: [address] [place] [address] Performed By: #### 5 7021-8 ####[facility] [id number] [place] [address] [place] Immature granulocytes/100 WBC (Bld) 0.7 % Normal [facility] Comment on above: Order Comment: Speci men Type: BLOOD SPECIMENOrdering Facility: [facility] Address: [address] [place] [address] Performed By: #### 5 7021-8 ####[facility] HOSPITALCONSTANCEA [id number] [place] [address] [place] Lymphocytes (Bld) [#/Vol] 1.00 10*3/uL Normal 1.00-4.00 [facility] Comment on above: Order Comment: Speci men Type: BLOOD SPECIMENOrdering Facility: [facility] Address: [address] [place] [address] Performed By: #### 5 7021-8 ####[facility] [id number] [place] [address] [place] Lymphocytes/100 WBC (Bld) 13.6 % Normal [facility] Comment on above: Order Comment: Speci men Type: BLOOD SPECIMENOrdering Facility: [facility] Address: [address] [place] [address] Performed By: #### 5 7021-8 ####[facility] [id number] [place] [address] [place] MCH (RBC) [Entitic mass] 36.6 pg High 26.0-34.0 [facility] Comment on above: Order Comment: Speci men Type: BLOOD SPECIMENOrdering Facility: [facility] Address: [address] [place] [address] Performed By: #### 5 7021-8 ####[facility]GNCSEVI[facility] [id number] [place] [address] [place] MCHC (RBC) [Mass/Vol] 33.5 g/dL Normal 30.5-36.0 [facility] Comment on above: Order Comment: Speci men Type: BLOOD SPECIMENOrdering Facility: [facility] Address: [address] [place] [address] Performed By: #### 5 7021-8 ####[facility]GNCL[facility] [id number] [place] [address] [place] MCV (RBC) [Entitic vol] 109.3 fL High 80.0-100.0 [facility] Comment on above: Order Comment: Speci men Type: BLOOD SPECIMENOrdering Facility: [facility] Address: [address] [place] [address] Performed By: #### 5 7021-8 ####[facility]GNC[facility] [id number] [place] [address] [place] Monocytes (Bld) [#/Vol] 0.94 10*3/uL High <0.87 [facility] Comment on above: Order Comment: Speci men Type: BLOOD SPECIMENOrdering Facility: [facility] Address: [address] [place] [address] Performed By: #### 5 7021-8 ####[facility]GNCCONSTANCE [id number] [place] [address] [place] Monocytes/100 WBC (Bld) 12.8 % Normal [facility] Comment on above: Order Comment: Speci men Type: BLOOD SPECIMENOrdering Facility: [facility] Address: [address] [place] [address] Performed By: #### 5 7021-8 ####[facility] [id number] [place] [address] [place] Neutrophils (Bld) [#/Vol] 5.23 10*3/uL Normal 1.45-7.50 [facility] Comment on above: Order Comment: Speci men Type: BLOOD SPECIMENOrdering Facility: [facility] Address: [address] [place] [address] Performed By: #### 5 7021-8 ####[facility] [id number] [place] [address] [place] Neutrophils/100 WBC (Bld) 70.9 % Normal [facility] Comment on above: Order Comment: Speci men Type: BLOOD SPECIMENOrdering Facility: [facility] Address: [address] [place] [address] Performed By: #### 5 7021-8 ####[facility] [id number] [place] [address] [place] Nucleated RBC (Bld) [#/Vol] 0.09 10*3/uL High <0.01 [facility] Comment on above: Order Comment: Speci men Type: BLOOD SPECIMENOrdering Facility: [facility] Address: [address] [place] [address] Performed By: #### 5 7021-8 ####[facility]GNCL[facility] [id number] [place] [address] [place] Nucleated RBC/100 WBC (Bld) [Ratio] 1.2 /100 WBC Normal [facility] Comment on above: Order Comment: Speci men Type: BLOOD SPECIMENOrdering Facility: [facility] Address: [address] [place] [address] Performed By: #### 5 7021-8 ####[facility]BURGROBERTLIA [id number] [place] [address] [place] Platelet mean volume (Bld) [Entitic vol] 11.9 fL Normal 9.0-12.7 [facility] Comment on above: Order Comment: Speci men Type: BLOOD SPECIMENOrdering Facility: [facility] Address: [address] [place] [address] Performed By: #### 5 7021-8 ####[facility] [id number] [place] [address] [place] Platelets (Bld) [#/Vol] 291 10*3/uL Normal 150-400 [facility] Comment on above: Order Comment: Speci men Type: BLOOD SPECIMENOrdering Facility: [facility] Address: [address] [place] [address] Performed By: #### 5 7021-8 ####[facility]OSPITALL[facility] [id number] [place] [address] [place] RBC (Bld) [#/Vol] 2.46 10*6/uL Low 4.20-6.00 [facility] Comment on above: Order Comment: Speci men Type: BLOOD SPECIMENOrdering Facility: [facility] Address: [address] [place] [address] Performed By: #### 5 7021-8 ####[facility]CL[facility] [id number] [place] [address] [place] WBC (Bld) [#/Vol] 7.36 10*3/uL Normal 3.70-11.00 [facility] Comment on above: Order Comment: Speci men Type: BLOOD SPECIMENOrdering Facility: [facility] Address: [address] [place] [address] Performed By: #### 5 7021-8 ####[facility]ITALWNCLIA [id number] [place] [address] [place] CNOVon 06-05-2025 CNOV Normal [facility] CNOVon 05-30-2025 CNOV Normal [facility] CBC W Auto Differential pane l (Bld)on 05-26-2025 Basophils (Bld) [#/Vol] 0.06 10*3/uL Normal <0.11 [facility] Comment on above: Order Comment: Speci men Type: BLOOD SPECIMENOrdering Facility: [facility] Address: [address] [place] [address] Performed By: #### 5 7021-8 ####[facility]CL[facility] [id number] [place] [address] [place] Basophils/100 WBC (Bld) 0.9 % Normal [facility] Comment on above: Order Comment: Speci men Type: BLOOD SPECIMENOrdering Facility: [facility] Address: [address] [place] [address] Performed By: #### 5 7021-8 ####[facility]CL[facility] [id number] [place] [address] [place] Differential cell count method Nom (Bld) Auto Normal [facility] Comment on above: Order Comment: Speci men Type: BLOOD SPECIMENOrdering Facility: [facility] Address: [address] [place] [address] Performed By: #### 5 7021-8 ####[facility]PITALL[facility] [id number] [place] [address] [place] Eosinophils (Bld) [#/Vol] 0.06 10*3/uL Normal <0.46 [facility] Comment on above: Order Comment: Speci men Type: BLOOD SPECIMENOrdering Facility: [facility] Address: [address] [place] [address] Performed By: #### 5 7021-8 ####[facility]ITALL[facility] [id number] [place] [address] [place] Eosinophils/100 WBC (Bld) 0.9 % Normal [facility] Comment on above: Order Comment: Speci men Type: BLOOD SPECIMENOrdering Facility: [facility] Address: [address] [place] [address] Performed By: #### 5 7021-8 ####[facility]BURGNCLIManuel [id number] [place] [address] [place] Erythrocyte distribution width (RBC) [Ratio] 24.2 % High 11.5-15.0 [facility] Comment on above: Order Comment: Speci men Type: BLOOD SPECIMENOrdering Facility: [facility] Address: [address] [place] [address] Performed By: #### 5 7021-8 ####[facility]CL[facility] [id number] [place] [address] [place] Hematocrit (Bld) [Volume fraction] 26.9 % Low 39.0-51.0 [facility] Comment on above: Order Comment: Speci men Type: BLOOD SPECIMENOrdering Facility: [facility] Address: [address] [place] [address] Performed By: #### 5 7021-8 ####[facility]CL[facility] [id number] [place] [address] [place] Hemoglobin (Bld) [Mass/Vol] 8.9 g/dL Low 13.0-17.0 [facility] Comment on above: Order Comment: Speci men Type: BLOOD SPECIMENOrdering Facility: [facility] Address: [address] [place] [address] Performed By: #### 5 7021-8 ####[facility] [id number] [place] [address] [place] Immature granulocytes (Bld) [#/Vol] 0.03 10*3/uL Normal <0.10 [facility] Comment on above: Order Comment: Speci men Type: BLOOD SPECIMENOrdering Facility: [facility] Address: [address] [place] [address] Performed By: #### 5 7021-8 ####[facility] [id number] [place] [address] [place] Immature granulocytes/100 WBC (Bld) 0.5 % Normal [facility] Comment on above: Order Comment: Speci men Type: BLOOD SPECIMENOrdering Facility: [facility] Address: [address] [place] [address] Performed By: #### 5 7021-8 ####[facility] [id number] [place] [address] [place] Lymphocytes (Bld) [#/Vol] 0.96 10*3/uL Low 1.00-4.00 [facility] Comment on above: Order Comment: Speci men Type: BLOOD SPECIMENOrdering Facility: [facility] Address: [address] [place] [address] Performed By: #### 5 7021-8 ####[facility] [id number] [place] [address] [place] Lymphocytes/100 WBC (Bld) 15.0 % Normal [facility] Comment on above: Order Comment: Speci men Type: BLOOD SPECIMENOrdering Facility: [facility] Address: [address] [place] [address] Performed By: #### 5 7021-8 ####[facility] MILLIVANAWNCLIA [id number] [place] [address] [place] MCH (RBC) [Entitic mass] 35.9 pg High 26.0-34.0 [facility] Comment on above: Order Comment: Speci men Type: BLOOD SPECIMENOrdering Facility: [facility] Address: [address] [place] [address] Performed By: #### 5 7021-8 ####[facility]CL[facility] [id number] [place] [address] [place] MCHC (RBC) [Mass/Vol] 33.1 g/dL Normal 30.5-36.0 [facility] Comment on above: Order Comment: Speci men Type: BLOOD SPECIMENOrdering Facility: [facility] Address: [address] [place] [address] Performed By: #### 5 7021-8 ####[facility]GNCL[facility] [id number] [place] [address] [place] MCV (RBC) [Entitic vol] 108.5 fL High 80.0-100.0 [facility] Comment on above: Order Comment: Speci men Type: BLOOD SPECIMENOrdering Facility: [facility] Address: [address] [place] [address] Performed By: #### 5 7021-8 ####[facility]GNCL[facility] [id number] [place] [address] [place] Monocytes (Bld) [#/Vol] 0.98 10*3/uL High <0.87 [facility] Comment on above: Order Comment: Speci men Type: BLOOD SPECIMENOrdering Facility: [facility] Address: [address] [place] [address] Performed By: #### 5 7021-8 ####[facility] [id number] [place] [address] [place] Monocytes/100 WBC (Bld) 15.3 % Normal [facility] Comment on above: Order Comment: Speci men Type: BLOOD SPECIMENOrdering Facility: [facility] Address: [address] [place] [address] Performed By: #### 5 7021-8 ####[facility] [id number] [place] [address] [place] Neutrophils (Bld) [#/Vol] 4.33 10*3/uL Normal 1.45-7.50 [facility] Comment on above: Order Comment: Speci men Type: BLOOD SPECIMENOrdering Facility: [facility] Address: [address] [place] [address] Performed By: #### 5 7021-8 ####[facility] [id number] [place] [address] [place] Neutrophils/100 WBC (Bld) 67.4 % Normal [facility] Comment on above: Order Comment: Speci men Type: BLOOD SPECIMENOrdering Facility: [facility] Address: [address] [place] [address] Performed By: #### 5 7021-8 ####[facility] [id number] [place] [address] [place] Nucleated RBC (Bld) [#/Vol] 0.06 10*3/uL High <0.01 [facility] Comment on above: Order Comment: Speci men Type: BLOOD SPECIMENOrdering Facility: [facility] Address: [address] [place] [address] Performed By: #### 5 7021-8 ####[facility] [id number] [place] [address] [place] Nucleated RBC/100 WBC (Bld) [Ratio] 0.9 /100 WBC Normal [facility] Comment on above: Order Comment: Speci men Type: BLOOD SPECIMENOrdering Facility: [facility] Address: [address] [place] [address] Performed By: #### 5 7021-8 ####[facility] JONHCHIPPEWA FALLSNCRADHA [id number] [place] [address] [place] Platelet mean volume (Bld) [Entitic vol] 11.3 fL Normal 9.0-12.7 [facility] Comment on above: Order Comment: Speci men Type: BLOOD SPECIMENOrdering Facility: [facility] Address: [address] [place] [address] Performed By: #### 5 7021-8 ####[facility]GNCSEVI[facility] [id number] [place] [address] [place] Platelets (Bld) [#/Vol] 311 10*3/uL Normal 150-400 [facility] Comment on above: Order Comment: Speci men Type: BLOOD SPECIMENOrdering Facility: [facility] Address: [address] [place] [address] Performed By: #### 5 7021-8 ####[facility] PETERSBURGNCA [id number] [place] [address] [place] RBC (Bld) [#/Vol] 2.48 10*6/uL Low 4.20-6.00 [facility] Comment on above: Order Comment: Speci men Type: BLOOD SPECIMENOrdering Facility: [facility] Address: [address] [place] [address] Performed By: #### 5 7021-8 ####[facility] [id number] [place] [address] [place] WBC (Bld) [#/Vol] 6.42 10*3/uL Normal 3.70-11.00 [facility] Comment on above: Order Comment: Speci men Type: BLOOD SPECIMENOrdering Facility: [facility] Address: [address] [place] [address] Performed By: #### 5 7021-8 ####[facility] [id number] [place] [address] [place] CNPNon 05-26-2025 CNPN Normal [facility] CNOVon 05-25-2025 CNOV Normal [facility] CNPNon 05-22-2025 CNPN Normal [facility] CBC W Auto Differential pane l (Bld)on 05-11-2025 Basophils (Bld) [#/Vol] 0.06 10*3/uL Normal <0.11 [facility] Comment on above: Order Comment: Speci men Type: BLOOD SPECIMENOrdering Facility: [facility] Address: [address] [place] [address] Performed By: #### 5 7021-8 ####[facility]BURGROBERTSEVI[facility] [id number] [place] [address] [place] Basophils/100 WBC (Bld) 1.0 % Normal [facility] Comment on above: Order Comment: Speci men Type: BLOOD SPECIMENOrdering Facility: [facility] Address: [address] [place] [address] Performed By: #### 5 7021-8 ####[facility]BURGMALENA [id number] [place] [address] [place] Differential cell count method Nom (Bld) Auto Normal [facility] Comment on above: Order Comment: Speci men Type: BLOOD SPECIMENOrdering Facility: [facility] Address: [address] [place] [address] Performed By: #### 5 7021-8 ####[facility]BURGNCLIA [id number] [place] [address] [place] Eosinophils (Bld) [#/Vol] 0.07 10*3/uL Normal <0.46 [facility] Comment on above: Order Comment: Speci men Type: BLOOD SPECIMENOrdering Facility: [facility] Address: [address] [place] [address] Performed By: #### 5 7021-8 ####[facility] HASEEB [id number] [place] [address] [place] Eosinophils/100 WBC (Bld) 1.2 % Normal [facility] Comment on above: Order Comment: Speci men Type: BLOOD SPECIMENOrdering Facility: [facility] Address: [address] [place] [address] Performed By: #### 5 7021-8 ####[facility]BURGNCRADHA [id number] [place] [address] [place] Erythrocyte distribution width (RBC) [Ratio] 23.8 % High 11.5-15.0 [facility] Comment on above: Order Comment: Speci men Type: BLOOD SPECIMENOrdering Facility: [facility] Address: [address] [place] [address] Performed By: #### 5 7021-8 ####[facility]GNCLIA [id number] [place] [address] [place] Hematocrit (Bld) [Volume fraction] 27.1 % Low 39.0-51.0 [facility] Comment on above: Order Comment: Speci men Type: BLOOD SPECIMENOrdering Facility: [facility] Address: [address] [place] [address] Performed By: #### 5 7021-8 ####[facility] HOSPITALLIA [id number] [place] [address] [place] Hemoglobin (Bld) [Mass/Vol] 9.2 g/dL Low 13.0-17.0 [facility] Comment on above: Order Comment: Speci men Type: BLOOD SPECIMENOrdering Facility: [facility] Address: [address] [place] [address] Performed By: #### 5 7021-8 ####[facility] MILLTOWNCLIA [id number] [place] [address] [place] Immature granulocytes (Bld) [#/Vol] 0.04 10*3/uL Normal <0.10 [facility] Comment on above: Order Comment: Speci men Type: BLOOD SPECIMENOrdering Facility: [facility] Address: [address] [place] [address] Performed By: #### 5 7021-8 ####[facility] HOSPITALLIA [id number] [place] [address] [place] Immature granulocytes/100 WBC (Bld) 0.7 % Normal [facility] Comment on above: Order Comment: Speci men Type: BLOOD SPECIMENOrdering Facility: [facility] Address: [address] [place] [address] Performed By: #### 5 7021-8 ####[facility] HOSPITALLIA [id number] [place] [address] [place] Lymphocytes (Bld) [#/Vol] 1.06 10*3/uL Normal 1.00-4.00 [facility] Comment on above: Order Comment: Speci men Type: BLOOD SPECIMENOrdering Facility: [facility] Address: [address] [place] [address] Performed By: #### 5 7021-8 ####[facility] HOSPITALWNCLIA [id number] [place] [address] [place] Lymphocytes/100 WBC (Bld) 17.5 % Normal [facility] Comment on above: Order Comment: Speci men Type: BLOOD SPECIMENOrdering Facility: [facility] Address: [address] [place] [address] Performed By: #### 5 7021-8 ####[facility] PETERSBURGNCLIA [id number] [place] [address] [place] MCH (RBC) [Entitic mass] 36.7 pg High 26.0-34.0 [facility] Comment on above: Order Comment: Speci men Type: BLOOD SPECIMENOrdering Facility: [facility] Address: [address] [place] [address] Performed By: #### 5 7021-8 ####[facility]BURGNCCONSTANCE [id number] [place] [address] [place] MCHC (RBC) [Mass/Vol] 33.9 g/dL Normal 30.5-36.0 [facility] Comment on above: Order Comment: Speci men Type: BLOOD SPECIMENOrdering Facility: [facility] Address: [address] [place] [address] Performed By: #### 5 7021-8 ####[facility]GNCSE[facility] [id number] [place] [address] [place] MCV (RBC) [Entitic vol] 108.0 fL High 80.0-100.0 [facility] Comment on above: Order Comment: Speci men Type: BLOOD SPECIMENOrdering Facility: [facility] Address: [address] [place] [address] Performed By: #### 5 7021-8 ####[facility] PETERSBURGNCLI [id number] [place] [address] [place] Monocytes (Bld) [#/Vol] 0.77 10*3/uL Normal <0.87 [facility] Comment on above: Order Comment: Speci men Type: BLOOD SPECIMENOrdering Facility: [facility] Address: [address] [place] [address] Performed By: #### 5 7021-8 ####[facility]BURGNCLI [id number] [place] [address] [place] Monocytes/100 WBC (Bld) 12.7 % Normal [facility] Comment on above: Order Comment: Speci men Type: BLOOD SPECIMENOrdering Facility: [facility] Address: [address] [place] [address] Performed By: #### 5 7021-8 ####[facility] JONHJEAN [id number] [place] [address] [place] Neutrophils (Bld) [#/Vol] 4.06 10*3/uL Normal 1.45-7.50 [facility] Comment on above: Order Comment: Speci men Type: BLOOD SPECIMENOrdering Facility: [facility] Address: [address] [place] [address] Performed By: #### 5 7021-8 ####[facility]BURGROBERTA [id number] [place] [address] [place] Neutrophils/100 WBC (Bld) 66.9 % Normal [facility] Comment on above: Order Comment: Speci men Type: BLOOD SPECIMENOrdering Facility: [facility] Address: [address] [place] [address] Performed By: #### 5 7021-8 ####[facility] [id number] [place] [address] [place] Nucleated RBC (Bld) [#/Vol] 0.06 10*3/uL High <0.01 [facility] Comment on above: Order Comment: Speci men Type: BLOOD SPECIMENOrdering Facility: [facility] Address: [address] [place] [address] Performed By: #### 5 7021-8 ####[facility] HOSPITALLIA [id number] [place] [address] [place] Nucleated RBC/100 WBC (Bld) [Ratio] 1.0 /100 WBC Normal [facility] Comment on above: Order Comment: Speci men Type: BLOOD SPECIMENOrdering Facility: [facility] Address: [address] [place] [address] Performed By: #### 5 7021-8 ####[facility] MILLIVANAWNCLIA [id number] [place] [address] [place] Platelet mean volume (Bld) [Entitic vol] 12.3 fL Normal 9.0-12.7 [facility] Comment on above: Order Comment: Speci men Type: BLOOD SPECIMENOrdering Facility: [facility] Address: [address] [place] [address] Performed By: #### 5 7021-8 ####[facility]GNCLIA [id number] [place] [address] [place] Platelets (Bld) [#/Vol] 231 10*3/uL Normal 150-400 [facility] Comment on above: Order Comment: Speci men Type: BLOOD SPECIMENOrdering Facility: [facility] Address: [address] [place] [address] Performed By: #### 5 7021-8 ####[facility]GNCLIA [id number] [place] [address] [place] RBC (Bld) [#/Vol] 2.51 10*6/uL Low 4.20-6.00 [facility] Comment on above: Order Comment: Speci men Type: BLOOD SPECIMENOrdering Facility: [facility] Address: [address] [place] [address] Performed By: #### 5 7021-8 ####[facility]BURGNCLIA [id number] [place] [address] [place] WBC (Bld) [#/Vol] 6.06 10*3/uL Normal 3.70-11.00 [facility] Comment on above: Order Comment: Speci men Type: BLOOD SPECIMENOrdering Facility: [facility] Address: [address] [place] [address] Performed By: #### 5 7021-8 ####[facility]GNCL[facility] [id number] [place] [address] [place] CNPNon 05-05-2025 CNPN Normal [facility] CBC W Auto Differential pane l (Bld)on 04-28-2025 Basophils (Bld) [#/Vol] 0.06 10*3/uL Normal <0.11 [facility] Comment on above: Order Comment: Speci men Type: BLOOD SPECIMENOrdering Facility: [facility] Address: [address] [place] [address] Performed By: #### 5 7021-8 ####[facility] HOSPITALLIA [id number] [place] [address] [place] Basophils/100 WBC (Bld) 1.0 % Normal [facility] Comment on above: Order Comment: Speci men Type: BLOOD SPECIMENOrdering Facility: [facility] Address: [address] [place] [address] Performed By: #### 5 7021-8 ####[facility] HOSPITALLIA [id number] [place] [address] [place] Differential cell count method Nom (Bld) Auto Normal [facility] Comment on above: Order Comment: Speci men Type: BLOOD SPECIMENOrdering Facility: [facility] Address: [address] [place] [address] Performed By: #### 5 7021-8 ####[facility]GNCLIA [id number] [place] [address] [place] Eosinophils (Bld) [#/Vol] 0.11 10*3/uL Normal <0.46 [facility] Comment on above: Order Comment: Speci men Type: BLOOD SPECIMENOrdering Facility: [facility] Address: [address] [place] [address] Performed By: #### 5 7021-8 ####[facility]BURGROBERTLIA [id number] [place] [address] [place] Eosinophils/100 WBC (Bld) 1.7 % Normal [facility] Comment on above: Order Comment: Speci men Type: BLOOD SPECIMENOrdering Facility: [facility] Address: [address] [place] [address] Performed By: #### 5 7021-8 ####[facility]GNCLIA [id number] [place] [address] [place] Erythrocyte distribution width (RBC) [Ratio] 22.5 % High 11.5-15.0 [facility] Comment on above: Order Comment: Speci men Type: BLOOD SPECIMENOrdering Facility: [facility] Address: [address] [place] [address] Performed By: #### 5 7021-8 ####[facility]GNC[facility] [id number] [place] [address] [place] Hematocrit (Bld) [Volume fraction] 28.9 % Low 39.0-51.0 [facility] Comment on above: Order Comment: Speci men Type: BLOOD SPECIMENOrdering Facility: [facility] Address: [address] [place] [address] Performed By: #### 5 7021-8 ####[facility]GNCLI [id number] [place] [address] [place] Hemoglobin (Bld) [Mass/Vol] 9.7 g/dL Low 13.0-17.0 [facility] Comment on above: Order Comment: Speci men Type: BLOOD SPECIMENOrdering Facility: [facility] Address: [address] [place] [address] Performed By: #### 5 7021-8 ####[facility]GNCLI [id number] [place] [address] [place] Immature granulocytes (Bld) [#/Vol] 10*3/uL Normal <0.10 [facility] Comment on above: Order Comment: Speci men Type: BLOOD SPECIMENOrdering Facility: [facility] Address: [address] [place] [address] Performed By: #### 5 7021-8 ####[facility]GMAL[facility] [id number] [place] [address] [place] Immature granulocytes/100 WBC (Bld) 0.3 % Normal [facility] Comment on above: Order Comment: Speci men Type: BLOOD SPECIMENOrdering Facility: [facility] Address: [address] [place] [address] Performed By: #### 5 7021-8 ####[facility] [id number] [place] [address] [place] Lymphocytes (Bld) [#/Vol] 1.11 10*3/uL Normal 1.00-4.00 [facility] Comment on above: Order Comment: Speci men Type: BLOOD SPECIMENOrdering Facility: [facility] Address: [address] [place] [address] Performed By: #### 5 7021-8 ####[facility] [id number] [address] [place] [facility] Lymphocytes/100 WBC (Bld) 17.6 % Normal [facility] Comment on above: Order Comment: Speci men Type: BLOOD SPECIMENOrdering Facility: [facility] Address: [address] [place] [address] Performed By: #### 5 7021-8 ####[facility] [id number] [place] [address] [place] MCH (RBC) [Entitic mass] 35.8 pg High 26.0-34.0 [facility] Comment on above: Order Comment: Speci men Type: BLOOD SPECIMENOrdering Facility: [facility] Address: [address] [place] [address] Performed By: #### 5 7021-8 ####[facility]GNCL[facility] [id number] [place] [address] [place] MCHC (RBC) [Mass/Vol] 33.6 g/dL Normal 30.5-36.0 [facility] Comment on above: Order Comment: Speci men Type: BLOOD SPECIMENOrdering Facility: [facility] Address: [address] [place] [address] Performed By: #### 5 7021-8 ####[facility] [id number] [place] [address] [place] MCV (RBC) [Entitic vol] 106.6 fL High 80.0-100.0 [facility] Comment on above: Order Comment: Speci men Type: BLOOD SPECIMENOrdering Facility: [facility] Address: [address] [place] [address] Performed By: #### 5 7021-8 ####[facility] [id number] [place] [address] [place] Monocytes (Bld) [#/Vol] 0.90 10*3/uL High <0.87 [facility] Comment on above: Order Comment: Speci men Type: BLOOD SPECIMENOrdering Facility: [facility] Address: [address] [place] [address] Performed By: #### 5 7021-8 ####[facility] [id number] [place] [address] [place] Monocytes/100 WBC (Bld) 14.3 % Normal [facility] Comment on above: Order Comment: Speci men Type: BLOOD SPECIMENOrdering Facility: [facility] Address: [address] [place] [address] Performed By: #### 5 7021-8 ####[facility]GNCLIA [id number] [place] [address] [place] Neutrophils (Bld) [#/Vol] 4.09 10*3/uL Normal 1.45-7.50 [facility] Comment on above: Order Comment: Speci men Type: BLOOD SPECIMENOrdering Facility: [facility] Address: [address] [place] [address] Performed By: #### 5 7021-8 ####[facility] HOSPITALWINLIA [id number] [place] [address] [place] Neutrophils/100 WBC (Bld) 65.1 % Normal [facility] Comment on above: Order Comment: Speci men Type: BLOOD SPECIMENOrdering Facility: [facility] Address: [address] [place] [address] Performed By: #### 5 7021-8 ####[facility] [id number] [place] [address] [place] Nucleated RBC (Bld) [#/Vol] 10*3/uL Normal <0.01 [facility] Comment on above: Order Comment: Speci men Type: BLOOD SPECIMENOrdering Facility: [facility] Address: [address] [place] [address] Performed By: #### 5 7021-8 ####[facility] [id number] [place] [address] [place] Nucleated RBC/100 WBC (Bld) [Ratio] 0.0 /100 WBC Normal [facility] Comment on above: Order Comment: Speci men Type: BLOOD SPECIMENOrdering Facility: [facility] Address: [address] [place] [address] Performed By: #### 5 7021-8 ####[facility] [id number] [place] [address] [place] Platelet mean volume (Bld) [Entitic vol] 12.3 fL Normal 9.0-12.7 [facility] Comment on above: Order Comment: Speci men Type: BLOOD SPECIMENOrdering Facility: [facility] Address: [address] [place] [address] Performed By: #### 5 7021-8 ####[facility] RUBENNCLIA [id number] [place] [address] [place] Platelets (Bld) [#/Vol] 266 10*3/uL Normal 150-400 [facility] Comment on above: Order Comment: Speci men Type: BLOOD SPECIMENOrdering Facility: [facility] Address: [address] [place] [address] Performed By: #### 5 7021-8 ####[facility] JONHCHIPPEWA FALLSNCLIA [id number] [place] [address] [place] RBC (Bld) [#/Vol] 2.71 10*6/uL Low 4.20-6.00 [facility] Comment on above: Order Comment: Speci men Type: BLOOD SPECIMENOrdering Facility: [facility] Address: [address] [place] [address] Performed By: #### 5 7021-8 ####[facility] JONHCHIPPEWA FALLSNCLIA [id number] [place] [address] [place] WBC (Bld) [#/Vol] 6.29 10*3/uL Normal 3.70-11.00 [facility] Comment on above: Order Comment: Speci men Type: BLOOD SPECIMENOrdering Facility: [facility] Address: [address] [place] [address] Performed By: #### 5 7021-8 ####[facility]GNCL[facility] [id number] [place] [address] [place] Basic metabolic 2000 panelon 04-14-2025 Anion gap [Moles/Vol] 13 mmol/L Normal 8-15 [facility] Comment on above: Order Comment: Speci men Type: BLOOD SPECIMENOrdering Facility: [facility] Address: [address] [place] [address] Performed By: #### 2 4321-2 ####[facility] MILLTOWNCLIA [id number] [place] [address] [place] Calcium [Mass/Vol] 9.4 mg/dL Normal 8.5-10.2 [facility] Comment on above: Order Comment: Speci men Type: BLOOD SPECIMENOrdering Facility: [facility] Address: [address] [place] [address] Performed By: #### 2 4321-2 ####[facility] MILLTOWNCLIA [id number] [place] [address] [place] Chloride [Moles/Vol] 92 mmol/L Low 98-107 [facility] Comment on above: Order Comment: Speci men Type: BLOOD SPECIMENOrdering Facility: [facility] Address: [address] [place] [address] Performed By: #### 2 4321-2 ####[facility] HOSPITALWNCLIA [id number] [place] [address] [place] [place] CO2 [Moles/Vol] 31 mmol/L High 22-30 [facility] Comment on above: Order Comment: Speci men Type: BLOOD SPECIMENOrdering Facility: [facility] Address: [address] [place] [address] Performed By: #### 2 4321-2 ####[facility] MILLTOWNCLIA [id number] [place] [address] [place] Creatinine [Mass/Vol] 1.19 mg/dL Normal 0.73-1.22 [facility] Comment on above: Order Comment: Speci men Type: BLOOD SPECIMENOrdering Facility: [facility] Address: [address] [place] [address] Performed By: #### 2 4321-2 ####[facility] MILLWNCLIA [id number] [place] [address] [place] Creatinine and Glomerular filtration rate.predicted panel (S/P/Bld) 58 mL/min/1.73m??? Low >=60 [facility] Comment on above: Order Comment: Elfego gilbert Type: BLOOD SPECIMENOrdering Facility: [facility] Address: [address] [place] [address] Result Comment: Concepción mated Glomerular Filtration Rate (eGFR) is calculated using the 2020 CKD-EPI creatinine equation. This equation utilizes serum creatinine, sex, and age as parameters. The creatinine assay has traceable calibration to isotope dilution-mass spectrometry. Refer to KDIGO guidelines for clinical interpretation. In patients with unstable renal function, e.g. those with acute kidney injury, the eGFR may not accurately reflect actual GFR. Performed By: #### 2 4321-2 ####[facility] [id number] [place] [address] [place] Glucose [Mass/Vol] 145 mg/dL High 74-99 [facility] Comment on above: Order Comment: Elfego gilbert Type: BLOOD SPECIMENOrdering Facility: [facility] Address: [address] [place] [address] Result Comment: The [place] Diabetes Association (ADA) provides guidance for cutoff values for fasting glucose and random glucose. The ADA defines fasting as no caloric intake for at least 8 hours. Fasting plasma glucose results between 100 to 125 mg/dL indicate increased risk for diabetes (prediabetes).Fasting plasma glucose results greater than or equal to 126 mg/dL meet the criteria for diagnosis of diabetes. In the absence of unequivocal hyperglycemia, results should be confirmed by repeat testing. In a patient with classic symptoms of hyperglycemia or hyperglycemic crisis, random plasma glucose results greater than or equal to 200 mg/dL meet the criteria for diagnosis of diabetes.Reference: Standards of Medical Care in Diabetes 2016, [place] Diabetes Association. Diabetes Care. 2016.39(Suppl 1). Performed By: #### 2 4321-2 ####[facility] [id number] [place] [address] [place] Potassium [Moles/Vol] 4.3 mmol/L Normal 3.7-5.1 [facility] Comment on above: Order Comment: Speci men Type: BLOOD SPECIMENOrdering Facility: [facility] Address: [address] [place] [address] Performed By: #### 2 4321-2 ####[facility] [id number] [place] [address] [place] Sodium [Moles/Vol] 136 mmol/L Normal 136-144 [facility] Comment on above: Order Comment: Speci men Type: BLOOD SPECIMENOrdering Facility: [facility] Address: [address] [place] [address] Performed By: #### 2 4321-2 ####[facility] [id number] [place] [address] [place] Urea nitrogen [Mass/Vol] 37 mg/dL High 9-24 [facility] Comment on above: Order Comment: Speci men Type: BLOOD SPECIMENOrdering Facility: [facility] Address: [address] [place] [address] Performed By: #### 2 4321-2 ####[facility] [id number] [place] [address] [place] CBC W Auto Differential pane l (Bld)on 04-14-2025 Basophils (Bld) [#/Vol] 0.06 10*3/uL Normal <0.11 [facility] Comment on above: Order Comment: Speci men Type: BLOOD SPECIMENOrdering Facility: [facility] Address: [address] [place] [address] Performed By: #### 5 7021-8 ####[facility] [id number] [place] [address] [place] Basophils/100 WBC (Bld) 1.0 % Normal [facility] Comment on above: Order Comment: Speci men Type: BLOOD SPECIMENOrdering Facility: [facility] Address: [address] [place] [address] Performed By: #### 5 7021-8 ####[facility] JONHCHIPPEWA FALLSROBERTLIA [id number] [place] [address] [place] Differential cell count method Nom (Bld) Auto Normal [facility] Comment on above: Order Comment: Speci men Type: BLOOD SPECIMENOrdering Facility: [facility] Address: [address] [place] [address] Performed By: #### 5 7021-8 ####[facility] [id number] [place] [address] [place] Eosinophils (Bld) [#/Vol] 0.07 10*3/uL Normal <0.46 [facility] Comment on above: Order Comment: Speci men Type: BLOOD SPECIMENOrdering Facility: [facility] Address: [address] [place] [address] Performed By: #### 5 7021-8 ####[facility] [id number] [place] [address] [place] Eosinophils/100 WBC (Bld) 1.2 % Normal [facility] Comment on above: Order Comment: Speci men Type: BLOOD SPECIMENOrdering Facility: [facility] Address: [address] [place] [address] Performed By: #### 5 7021-8 ####[facility] HOSPITALLIA [id number] [place] [address] [place] Erythrocyte distribution width (RBC) [Ratio] 21.8 % High 11.5-15.0 [facility] Comment on above: Order Comment: Speci men Type: BLOOD SPECIMENOrdering Facility: [facility] Address: [address] [place] [address] Performed By: #### 5 7021-8 ####[facility] [id number] [place] [address] [place] Hematocrit (Bld) [Volume fraction] 30.8 % Low 39.0-51.0 [facility] Comment on above: Order Comment: Speci men Type: BLOOD SPECIMENOrdering Facility: [facility] Address: [address] [place] [address] Performed By: #### 5 7021-8 ####[facility]BURGMALENA [id number] [place] [address] [place] Hemoglobin (Bld) [Mass/Vol] 10.3 g/dL Low 13.0-17.0 [facility] Comment on above: Order Comment: Speci men Type: BLOOD SPECIMENOrdering Facility: [facility] Address: [address] [place] [address] Performed By: #### 5 7021-8 ####[facility] HOSPITALRADHA [id number] [place] [address] [place] Immature granulocytes (Bld) [#/Vol] 10*3/uL Normal <0.10 [facility] Comment on above: Order Comment: Speci men Type: BLOOD SPECIMENOrdering Facility: [facility] Address: [address] [place] [address] Performed By: #### 5 7021-8 ####[facility] HOSPITALRADHA [id number] [place] [address] [place] Immature granulocytes/100 WBC (Bld) 0.3 % Normal [facility] Comment on above: Order Comment: Speci men Type: BLOOD SPECIMENOrdering Facility: [facility] Address: [address] [place] [address] Performed By: #### 5 7021-8 ####[facility] [id number] [place] [address] [place] Lymphocytes (Bld) [#/Vol] 1.01 10*3/uL Normal 1.00-4.00 [facility] Comment on above: Order Comment: Speci men Type: BLOOD SPECIMENOrdering Facility: [facility] Address: [address] [place] [address] Performed By: #### 5 7021-8 ####[facility] [id number] [place] [address] [place] Lymphocytes/100 WBC (Bld) 17.6 % Normal [facility] Comment on above: Order Comment: Speci men Type: BLOOD SPECIMENOrdering Facility: [facility] Address: [address] [place] [address] Performed By: #### 5 7021-8 ####[facility] [id number] [place] [address] [place] MCH (RBC) [Entitic mass] 36.4 pg High 26.0-34.0 [facility] Comment on above: Order Comment: Speci men Type: BLOOD SPECIMENOrdering Facility: [facility] Address: [address] [place] [address] Performed By: #### 5 7021-8 ####[facility] [id number] [place] [address] [place] MCHC (RBC) [Mass/Vol] 33.4 g/dL Normal 30.5-36.0 [facility] Comment on above: Order Comment: Speci men Type: BLOOD SPECIMENOrdering Facility: [facility] Address: [address] [place] [address] Performed By: #### 5 7021-8 ####[facility] PETERSBURGNCLI [id number] [place] [address] [place] MCV (RBC) [Entitic vol] 108.8 fL High 80.0-100.0 [facility] Comment on above: Order Comment: Speci men Type: BLOOD SPECIMENOrdering Facility: [facility] Address: [address] [place] [address] Performed By: #### 5 7021-8 ####[facility] MILLTOWNCLIA [id number] [place] [address] [place] Monocytes (Bld) [#/Vol] 0.85 10*3/uL Normal <0.87 [facility] Comment on above: Order Comment: Speci men Type: BLOOD SPECIMENOrdering Facility: [facility] Address: [address] [place] [address] Performed By: #### 5 7021-8 ####[facility] MILLTOWNCLIA [id number] [place] [address] [place] Monocytes/100 WBC (Bld) 14.8 % Normal [facility] Comment on above: Order Comment: Speci men Type: BLOOD SPECIMENOrdering Facility: [facility] Address: [address] [place] [address] Performed By: #### 5 7021-8 ####[facility]OSPITALWNCLIA [id number] [place] [address] [place] Neutrophils (Bld) [#/Vol] 3.74 10*3/uL Normal 1.45-7.50 [facility] Comment on above: Order Comment: Speci men Type: BLOOD SPECIMENOrdering Facility: [facility] Address: [address] [place] [address] Performed By: #### 5 7021-8 ####[facility] MILLTOWNCLIA [id number] [place] [address] [place] Neutrophils/100 WBC (Bld) 65.1 % Normal [facility] Comment on above: Order Comment: Speci men Type: BLOOD SPECIMENOrdering Facility: [facility] Address: [address] [place] [address] Performed By: #### 5 7021-8 ####[facility] MILLTOWNCLIA [id number] [place] [address] [place] Nucleated RBC (Bld) [#/Vol] 0.02 10*3/uL High <0.01 [facility] Comment on above: Order Comment: Speci men Type: BLOOD SPECIMENOrdering Facility: [facility] Address: [address] [place] [address] Performed By: #### 5 7021-8 ####[facility]BURGROBERT[facility]VI[facility] [id number] [place] [address] [place] Nucleated RBC/100 WBC (Bld) [Ratio] 0.3 /100 WBC Normal [facility] Comment on above: Order Comment: Speci men Type: BLOOD SPECIMENOrdering Facility: [facility] Address: [address] [place] [address] Performed By: #### 5 7021-8 ####[facility] PETERSBURGNCManuel [id number] [place] [address] [place] Platelet mean volume (Bld) [Entitic vol] 11.6 fL Normal 9.0-12.7 [facility] Comment on above: Order Comment: Speci men Type: BLOOD SPECIMENOrdering Facility: [facility] Address: [address] [place] [address] Performed By: #### 5 7021-8 ####[facility] PETERSBURGKOSTAManuel [id number] [place] [address] [place] Platelets (Bld) [#/Vol] 250 10*3/uL Normal 150-400 [facility] Comment on above: Order Comment: Speci men Type: BLOOD SPECIMENOrdering Facility: [facility] Address: [address] [place] [address] Performed By: #### 5 7021-8 ####[facility] PETERSBURGNCLIA [id number] [place] [address] [place] RBC (Bld) [#/Vol] 2.83 10*6/uL Low 4.20-6.00 [facility] Comment on above: Order Comment: Speci men Type: BLOOD SPECIMENOrdering Facility: [facility] Address: [address] [place] [address] Performed By: #### 5 7021-8 ####[facility] PET[facility]BURGNCLI [id number] [place] [address] [place] WBC (Bld) [#/Vol] 5.75 10*3/uL Normal 3.70-11.00 [facility] Comment on above: Order Comment: Speci men Type: BLOOD SPECIMENOrdering Facility: [facility] Address: [address] [place] [address] Performed By: #### 5 7021-8 ####[facility] PETERSBURGNCA [id number] [address] [facility] CNOVon 04-07-2025 CNOV Office Visit ([id number] ) -- SRINI LUIS ([id number]) 1935 M Date Time Provider Department 04/07/25 11:40 AM IRAM JOHNSON [id number] During your visit today, we recorded the following information about you: Pulse Blood pressure Weight Height 83/minute 130/68 78.5 kg 1.702 m Iram Johnson, MANAGER DAIRY.OFFICE MACHINES SALES REPRESENTATIVE 04/07/2025 11:40 AM Signed [facility] Ronaldo Pleitez MD SUBJECTIVE: Srini Luis is a 89 year old male who is here today for a follow up visit. The patient is doing well from a cardiovascular standpoint. His biggest complaint is lower extremity edema with his right leg being worse than the left. He had bypass surgery in the past in which they harvested the vein from his right lower extremity. He denies any problems of chest pain, shortness of breath, palpitations, PND orthopnea, syncope, or near syncope. 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 ([facility]) 12/01/2022 CVA (cerebral vascular accident) ([facility]) 08/22/2022 Diverticulosis H/O echocardiogram 09/16/2022 EF 68?5 %, mod concentric LVH, mod TR, mild-mod MR with mod MAC History of anemia History of CVA (cerebrovascular accident) 08/22/2022 Pontine infarction, R>L History of stress test 10/12/2024 EF 43%, mild ischemia involving the apex Hx of CABG 07/22/2021 4 vessel CABG with ORNELAS-LAD, SVG-RI, SVG-OM, and SVG-RCA in [place] Hypertension 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 2017 when he's been off medication Nocturnal hypoxemia On oxygen at night Osteoarthritis, generalized Pacemaker 09/17/2022 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 PVC's (premature ventricular contractions) RBBB Restless leg syndrome Spinal stenosis of lumbar region with neurogenic claudication Status post ligation of left atrial appendage 07/2021 At time of CABG Thrombosis of right internal jugular vein ([facility]) 05/05/2023 Port a Cath removed. 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 Vitamin D deficiency 07/11/2020 PAST SURGICAL HISTORY Procedure Laterality Date ANKLE RIGHT OP SURGERY Right 12/18/2020 Dr Arreola [facility] ARTHROPLASTY TOTAL SHOULDER 11/09/2008 right ARTHROSCOPY OF JOINT UNLISTED 1999 Elbow right CABG (4) VEIN GRAFTS AND ARTERIAL GRAFT(S) 07/21/2021 In [facility] COLONOSCOPY FLX DX W/COLLJ SPEC WHEN PFRMD 09/01/2005 Colonoscopy COLONOSCOPY FLX DX W/COLLJ SPEC WHEN PFRMD 09/27/2015 Colonoscopy REMOVAL OF TONSILS,<12 Y/O S $ DUAL CHMBR PACER [id number] Left 09/17/2022 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 FAMILY HISTORY Problem Relation Age of Onset Heart Mother Heart Father CHF Colon Cancer No Family History Prostate Cancer No Family History Blood Clots No Family History NO PE OR DVT SOCIAL HISTORY: Social History Tobacco Use Smoking status: Former Current packs/day: 0.00 Types: Cigarettes Quit date: 08/11/1989 Years since quittin.6 Passive exposure: Past Smokeless tobacco: Never Tobacco comments: quit 18-19 years ago Vaping Use Vaping status: Never Used Substance Use Topics Alcohol use: Yes Alcohol/week: 3.0 standard drinks of alcohol Types: 3 Glasses of wine per week Comment: occ Drug use: No ALLERGIES: Simvastatin CURRENT MEDICATIONS: Current Outpatient Medications Medication Sig metOLazone (ZAROXOLYN) 2.5 mg tablet Take 1 tablet by mouth three times a week. furosemide (LASIX) 40 mg tablet Take 0.5 tablets by mouth two times a day. AM and noon. atorvastatin (LIPITOR) 20 mg tablet Take 1 tablet by mouth once daily. rivaroxaban (XARELTO) 20 mg tablet Take 1 tablet by mouth daily with dinner. Resume Sep 20 2022 levothyroxine (SYNTHROID) 100 mcg tablet Take 1 tablet by mouth once daily. Take on empty stomach cholecalciferol (VITAMIN D3) 1,000 unit tab tablet Take by mouth once daily. folic acid 1 mg tablet Take 1 tablet by mouth once vivian (more content not included)... Normal [facility] CNOV Office Visit ([id number] ) -- KIERRASRINI ([id number]) 1935 M Date Time Provider Department 04/07/25 11:00 AM [facility] [id number] During your visit today, we recorded the following information about you: Allergies As of Date: 04/07/2025 Noted Allergy Reaction SIMVASTATIN 08/17/2012 14 - Other: See Comments Comments: Elevated CK Date Reviewed: 04/07/2025 Reviewed by: Iram Johnson, MARTIN.OFFICE MACHINES SALES REPRESENTATIVE - Fully Assessed Reason for Visit: Permanent Pacemaker [1364] Visit Diagnosis:Pacemaker reprogramming/check [Z45.018] Order(s):CARDIAC IMPLANTABLE DEVICE CHECK [5000542] Order #: [id number] FUTURE CARDIAC IMPLANTABLE DEVICE CHECK [8329269] Order #: [id number]. #:[id number] Prescriptions as of 06/13/2025 - furosemide (LASIX) 40 mg tablet Take 0.5 tablets by mouth two times a day. AM and noon. Okay to take an extra 0.5 tab in the AM if swelling increases (no more than two days) - atorvastatin (LIPITOR) 20 mg tablet Take 1 tablet by mouth once daily. - rivaroxaban (XARELTO) 20 mg tablet Take 1 tablet by mouth daily with dinner. Resume Sep 20 2022 - levothyroxine (SYNTHROID) 100 mcg tablet Take 1 tablet by mouth once daily. Take on empty stomach - cholecalciferol (VITAMIN D3) 1,000 unit tab tablet Take by mouth once daily. - folic acid 1 mg tablet Take 1 tablet by mouth once daily. - ADULT LOW DOSE ASPIRIN ORAL Take 81 mg by mouth once daily. - nitroglycerin sublingual (NITROQUICK) 0.4 mg SL tablet nitroglycerin 0.4 mg sublingual tablet - cyanocobalamin (VITAMIN B-12) 1,000 mcg tab Take 1,000 mcg by mouth once daily. - polyethylene glycol 3350 (MIRALAX, GLYCOLAX) 17 gram packet Take 17 g by mouth once daily as needed for constipation. Dissolve dose in 4 - 8 ounces of liquid and take as directed. - MULTIVITAMIN TABLET Take 1 tablet by mouth once daily. Problem List As Of Date 04/07/2025 Noted Resolved Injury to ulnar nerve [S54.00XA] 09/21/2003 06/16/2023 Follow-up examination following surgery [V67.0] 10/31/2003 01/02/2015 Mixed hyperlipidemia [E78.2] 07/04/2005 Hypothyroidism [E03.9] 07/04/2005 Special screening for malignant neoplasms, colo*08/11/2005 01/02/2015 Generalized osteoarthrosis [M15.9] 06/05/2006 01/22/2024 ACTINIC DAMAGE///SOLAR SKIN DAMAGE NOS [L57.8] 04/07/2008 01/02/2015 Dermatitis due to cosmetics [L25.0] 04/07/2008 01/02/2015 ACTINIC DAMAGE///CHR SOLAR SKIN DAMAGE NOS [L57*04/07/2008 01/02/2015 Other seborrheic keratosis [L82.1] 04/07/2008 01/02/2015 SOLAR LENTIGINES///DYSCHROMIA OTHER [L81.9] 04/07/2008 01/02/2015 ACTINIC KERATOSIS (Premalignant AK) [L57.0] 04/07/2008 01/02/2015 Primary localized osteoarthrosis, shoulder laurence*09/21/2008 06/16/2023 Osteoarthrosis, unspecified whether generalized*12/14/2008 06/16/2023 Follow-Up Examination, Following Unspecified Servin*06/11/2009 08/14/2009 Spinal stenosis of lumbar region with neurogeni*06/28/2009 Insomnia [G47.00] 08/13/2010 06/16/2023 Erectile dysfunction [N52.9] 08/13/2010 06/16/2023 Viral warts, unspecified [B07.9] 09/29/2010 01/02/2015 Irritated//Inflamed Seborrheic Keratosis [L82.0]09/29/2010 01/02/2015 Back pain [M54.9] 01/09/2012 06/16/2023 Essential hypertension, benign [I10] 01/12/2012 01/22/2024 Myasthenia gravis (HCC) [G70.00] 04/19/2012 09/15/2022 Xerosis cutis [L85.3] 12/14/2012 01/02/2015 Pruritus [L29.9] 12/14/2012 01/02/2015 Actinic skin damage [L57.8] 12/14/2012 01/02/2015 Solar lentigo [L81.4] 12/14/2012 01/02/2015 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] 02/08/2015 06/16/2023 B12 deficiency [E53.8] 07/11/2020 Vitamin D deficiency [E55.9] 07/11/2020 Macrocytosis [D75.89] 07/11/2020 06/16/2023 Venous stasis of both lower extremities [I87.8] 07/11/2020 07/29/2024 CAD (coronary artery disease) [I25.10] Diverticulosis [K57.90] 06/16/2023 History of anemia [Z86.2] 06/16/2023 Hx of CABG [Z95.1] 07/2021 Hx of colonoscopy [Z98.890] 09/27/2015 06/16/2023 Hypertension [I10] Lumbar stenosis [M48.061] 06/16/2023 Status post ligation of left atrial appendage [*07/202106/16/2023 Osteoarthritis, generalized [M15.9] 06/16/2023 PAF (paroxysmal atrial fibrillation) (HCC) [I48*202007/23/2023 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 of anticoagulants with IN* 09/15/2022 Nocturnal hypoxemia [G47.34] 08/29/2022 PVC's (premature ventricular contractions) [I49* 06/16/2023 Benign hypertension [I10] 08/14/2021 06/16/2023 RBBB [I45.10] 06/16/2023 CHF (congestive heart failure), NYHA class I, a*07/04/2022 08/26/2022 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) [I63.9] 08/22/2022 06/16/2023 Vertebral artery occlusion, left [I65.02] 08/25/2022 06/16/2023 Abnormal gait due to peripheral sensory disorde*08/25/2022 Acute ischemic stroke (HCC) [I63.9] 08/26/2022 06/16/2023 Malnutrition of moderate degree (HCC) [E44.0] 09/05/2022 12/24/2023 Symptomatic bradycardia [R00.1] 09/15/2022 09/18/2022 Weakness generalized [R53.1] (more content not included)... Normal [facility] ECG COMPLETEon 04-07-2025 ECG COMPLETE Ventricular Rate : 8 3 BPM Atrial Rate : 85 BPM QRS Duration : 164 ms Q-T Interval : 478 ms QTC Calculation(Bazett) : 561 ms Calculated R [place] : 264 degrees Calculated T [place] : 59 degrees Sinus rhythm 1st degree AV block Right bundle branch block Premature ventricular complexes Abnormal ECG When compared with ECG of 18-Sep-2022 06:17, 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 Confirmed by OSCAR ELHMAN MD ([id number]) on 04/15/2025 11:39:30 AM NAME : SRINI LUIS PID : [id number] : 1935 Gender : Male Race : ORD : [id number] Procedure Date : Apr 07 2025 11:13:14 Edit Date : Apr 15 2025 11:39:31 Diagnosis: Sinus rhythm 1st degree AV block Right bundle branch block Premature ventricular complexes Abnormal ECG When compared with ECG of 18-Sep-2022 06:17, 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 Confirmed by OSCAR LEHMAN MD ([id number]) on 04/15/2025 11:39:30 AM Test Reason : Location : 201 : [facility] Overread By : OSCAR LEHMAN MD Edited By : OSCAR LEHMAN MD Referred By : , Acquired by : ruba Normal [facility] CNPMichelle 04-05-2025 CNPN Normal [facility] CBC W Auto Differential pane l (Bld)on 03-31-2025 Basophils (Bld) [#/Vol] 0.04 10*3/uL Normal <0.11 [facility] Comment on above: Order Comment: Speci men Type: BLOOD SPECIMENOrdering Facility: [facility] Address: [address] [place] [address] Performed By: #### 5 7021-8 ####[facility] [id number] [place] [address] [place] Basophils/100 WBC (Bld) 0.8 % Normal [facility] Comment on above: Order Comment: Speci men Type: BLOOD SPECIMENOrdering Facility: [facility] Address: [address] [place] [address] Performed By: #### 5 7021-8 ####[facility] [id number] [place] [address] [place] Differential cell count method Nom (Bld) Auto Normal [facility] Comment on above: Order Comment: Speci men Type: BLOOD SPECIMENOrdering Facility: [facility] Address: [address] [place] [address] Performed By: #### 5 7021-8 ####[facility] [id number] [place] [address] [place] Eosinophils (Bld) [#/Vol] 0.11 10*3/uL Normal <0.46 [facility] Comment on above: Order Comment: Speci men Type: BLOOD SPECIMENOrdering Facility: [facility] Address: [address] [place] [address] Performed By: #### 5 7021-8 ####[facility] [id number] [place] [address] [place] Eosinophils/100 WBC (Bld) 2.1 % Normal [facility] Comment on above: Order Comment: Speci men Type: BLOOD SPECIMENOrdering Facility: [facility] Address: [address] [place] [address] Performed By: #### 5 7021-8 ####[facility] [id number] [place] [address] [place] Erythrocyte distribution width (RBC) [Ratio] 22.5 % High 11.5-15.0 [facility] Comment on above: Order Comment: Speci men Type: BLOOD SPECIMENOrdering Facility: [facility] Address: [address] [place] [address] Performed By: #### 5 7021-8 ####[facility] KATECONSTANCEManuel [id number] [place] [address] [place] Hematocrit (Bld) [Volume fraction] 26.4 % Low 39.0-51.0 [facility] Comment on above: Order Comment: Speci men Type: BLOOD SPECIMENOrdering Facility: [facility] Address: [address] [place] [address] Performed By: #### 5 7021-8 ####[facility]AL[facility] [id number] [place] [address] [place] Hemoglobin (Bld) [Mass/Vol] 9.0 g/dL Low 13.0-17.0 [facility] Comment on above: Order Comment: Speci men Type: BLOOD SPECIMENOrdering Facility: [facility] Address: [address] [place] [address] Performed By: #### 5 7021-8 ####[facility] PET[facility]BURGROBERTManuel [id number] [place] [address] [place] Immature granulocytes (Bld) [#/Vol] 10*3/uL Normal <0.10 [facility] Comment on above: Order Comment: Speci men Type: BLOOD SPECIMENOrdering Facility: [facility] Address: [address] [place] [address] Performed By: #### 5 7021-8 ####[facility] PETERSBURGKOSTAA [id number] [place] [address] [place] Immature granulocytes/100 WBC (Bld) 0.4 % Normal [facility] Comment on above: Order Comment: Speci men Type: BLOOD SPECIMENOrdering Facility: [facility] Address: [address] [place] [address] Performed By: #### 5 7021-8 ####[facility] HOSPITALWNCLIA [id number] [place] [address] [place] Lymphocytes (Bld) [#/Vol] 1.12 10*3/uL Normal 1.00-4.00 [facility] Comment on above: Order Comment: Speci men Type: BLOOD SPECIMENOrdering Facility: [facility] Address: [address] [place] [address] Performed By: #### 5 7021-8 ####[facility]A [id number] [place] [address] [place] Lymphocytes/100 WBC (Bld) 21.4 % Normal [facility] Comment on above: Order Comment: Speci men Type: BLOOD SPECIMENOrdering Facility: [facility] Address: [address] [place] [address] Performed By: #### 5 7021-8 ####[facility] [id number] [place] [address] [place] MCH (RBC) [Entitic mass] 37.5 pg High 26.0-34.0 [facility] Comment on above: Order Comment: Speci men Type: BLOOD SPECIMENOrdering Facility: [facility] Address: [address] [place] [address] Performed By: #### 5 7021-8 ####[facility]A [id number] [place] [address] [place] MCHC (RBC) [Mass/Vol] 34.1 g/dL Normal 30.5-36.0 [facility] Comment on above: Order Comment: Speci men Type: BLOOD SPECIMENOrdering Facility: [facility] Address: [address] [place] [address] Performed By: #### 5 7021-8 ####[facility] PETERSBURGNCLI [id number] [place] [address] [place] MCV (RBC) [Entitic vol] 110.0 fL High 80.0-100.0 [facility] Comment on above: Order Comment: Speci men Type: BLOOD SPECIMENOrdering Facility: [facility] Address: [address] [place] [address] Performed By: #### 5 7021-8 ####[facility] PETERSBURGNCA [id number] [place] [address] [place] Monocytes (Bld) [#/Vol] 0.70 10*3/uL Normal <0.87 [facility] Comment on above: Order Comment: Speci men Type: BLOOD SPECIMENOrdering Facility: [facility] Address: [address] [place] [address] Performed By: #### 5 7021-8 ####[facility] PET[facility]BURGNCA [id number] [place] [address] [place] Monocytes/100 WBC (Bld) 13.4 % Normal [facility] Comment on above: Order Comment: Speci men Type: BLOOD SPECIMENOrdering Facility: [facility] Address: [address] [place] [address] Performed By: #### 5 7021-8 ####[facility] PETERSBURGNCLIA [id number] [place] [address] [place] Neutrophils (Bld) [#/Vol] 3.24 10*3/uL Normal 1.45-7.50 [facility] Comment on above: Order Comment: Speci men Type: BLOOD SPECIMENOrdering Facility: [facility] Address: [address] [place] [address] Performed By: #### 5 7021-8 ####[facility] PET[facility]BURGNCLIA [id number] [place] [address] [place] Neutrophils/100 WBC (Bld) 61.9 % Normal [facility] Comment on above: Order Comment: Speci men Type: BLOOD SPECIMENOrdering Facility: [facility] Address: [address] [place] [address] Performed By: #### 5 7021-8 ####[facility]GMAL[facility] [id number] [place] [address] [place] Nucleated RBC (Bld) [#/Vol] 0.02 10*3/uL High <0.01 [facility] Comment on above: Order Comment: Speci men Type: BLOOD SPECIMENOrdering Facility: [facility] Address: [address] [place] [address] Performed By: #### 5 7021-8 ####[facility] [id number] [place] [address] [place] Nucleated RBC/100 WBC (Bld) [Ratio] 0.4 /100 WBC Normal [facility] Comment on above: Order Comment: Speci men Type: BLOOD SPECIMENOrdering Facility: [facility] Address: [address] [place] [address] Performed By: #### 5 7021-8 ####[facility] [id number] [place] [address] [place] Platelet mean volume (Bld) [Entitic vol] 11.4 fL Normal 9.0-12.7 [facility] Comment on above: Order Comment: Speci men Type: BLOOD SPECIMENOrdering Facility: [facility] Address: [address] [place] [address] Performed By: #### 5 7021-8 ####[facility] HOSPITALLIA [id number] [place] [address] [place] Platelets (Bld) [#/Vol] 240 10*3/uL Normal 150-400 [facility] Comment on above: Order Comment: Speci men Type: BLOOD SPECIMENOrdering Facility: [facility] Address: [address] [place] [address] Performed By: #### 5 7021-8 ####[facility] RUBENNCLIA [id number] [place] [address] [place] RBC (Bld) [#/Vol] 2.40 10*6/uL Low 4.20-6.00 [facility] Comment on above: Order Comment: Speci men Type: BLOOD SPECIMENOrdering Facility: [facility] Address: [address] [place] [address] Performed By: #### 5 7021-8 ####[facility] JONHWilliamsNCLIA [id number] [place] [address] [place] WBC (Bld) [#/Vol] 5.23 10*3/uL Normal 3.70-11.00 [facility] Comment on above: Order Comment: Speci men Type: BLOOD SPECIMENOrdering Facility: [facility] Address: [address] [place] [address] Performed By: #### 5 7021-8 ####[facility]BURGNCLIA [id number] [place] [address] [place] CNOVSPon 03-31-2025 CNOVSP Normal [facility] Comprehensive metabolic 2000 panelon 03-31-2025 Albumin [Mass/Vol] 4.1 g/dL Normal 3.9-4.9 [facility] Comment on above: Order Comment: Speci men Type: BLOOD SPECIMENOrdering Facility: [facility] Address: [address] [place] [address] Performed By: #### 2 4323-8 ####[facility]BURGNCLIA [id number] [place] [address] [place] ALP [Catalytic activity/Vol] 64 U/L Normal 38-113 [facility] Comment on above: Order Comment: Speci men Type: BLOOD SPECIMENOrdering Facility: [facility] Address: [address] [place] [address] Performed By: #### 2 4323-8 ####[facility] MILLTOWNCLIA [id number] [place] [address] [place] ALT [Catalytic activity/Vol] 17 U/L Normal 10-54 [facility] Comment on above: Order Comment: Speci men Type: BLOOD SPECIMENOrdering Facility: [facility] Address: [address] [place] [address] Performed By: #### 2 4323-8 ####[facility] MILLTOWNCLIA [id number] [place] [address] [place] Anion gap [Moles/Vol] 11 mmol/L Normal 8-15 [facility] Comment on above: Order Comment: Speci men Type: BLOOD SPECIMENOrdering Facility: [facility] Address: [address] [place] [address] Performed By: #### 2 4323-8 ####[facility]GNCLIA [id number] [place] [address] [place] AST [Catalytic activity/Vol] 23 U/L Normal 14-40 [facility] Comment on above: Order Comment: Speci men Type: BLOOD SPECIMENOrdering Facility: [facility] Address: [address] [place] [address] Performed By: #### 2 4323-8 ####[facility]GNCLIA [id number] [place] [address] [place] Bilirubin [Mass/Vol] 1.8 mg/dL High 0.2-1.3 [facility] Comment on above: Order Comment: Speci men Type: BLOOD SPECIMENOrdering Facility: [facility] Address: [address] [place] [address] Performed By: #### 2 4323-8 ####[facility]GNCLIA [id number] [place] [address] [place] Calcium [Mass/Vol] 8.9 mg/dL Normal 8.5-10.2 [facility] Comment on above: Order Comment: Speci men Type: BLOOD SPECIMENOrdering Facility: [facility] Address: [address] [place] [address] Performed By: #### 2 4323-8 ####[facility]GNCLIA [id number] [place] [address] [place] Chloride [Moles/Vol] 103 mmol/L Normal 98-107 [facility] Comment on above: Order Comment: Speci men Type: BLOOD SPECIMENOrdering Facility: [facility] Address: [address] [place] [address] Performed By: #### 2 4323-8 ####[facility] HOSPITALLI [id number] [place] [address] [place] CO2 [Moles/Vol] 25 mmol/L Normal 22-30 [facility] Comment on above: Order Comment: Speci men Type: BLOOD SPECIMENOrdering Facility: [facility] Address: [address] [place] [address] Performed By: #### 2 4323-8 ####[facility] HOSPITALLIA [id number] [place] [address] [place] Creatinine [Mass/Vol] 0.99 mg/dL Normal 0.73-1.22 [facility] Comment on above: Order Comment: Speci men Type: BLOOD SPECIMENOrdering Facility: [facility] Address: [address] [place] [address] Performed By: #### 2 4323-8 ####[facility] [id number] [place] [address] [place] Creatinine and Glomerular filtration rate.predicted panel (S/P/Bld) 73 mL/min/1.73m??? Normal >=60 [facility] Comment on above: Order Comment: Speci men Type: BLOOD SPECIMENOrdering Facility: [facility] Address: [address] [place] [address] Result Comment: Concepción mated Glomerular Filtration Rate (eGFR) is calculated using the 2020 CKD-EPI creatinine equation. This equation utilizes serum creatinine, sex, and age as parameters. The creatinine assay has traceable calibration to isotope dilution-mass spectrometry. Refer to KDIGO guidelines for clinical interpretation. In patients with unstable renal function, e.g. those with acute kidney injury, the eGFR may not accurately reflect actual GFR. Performed By: #### 2 4323-8 ####[facility] [id number] [place] [address] [place] Glucose [Mass/Vol] 163 mg/dL High 74-99 [facility] Comment on above: Order Comment: Elfego gilbert Type: BLOOD SPECIMENOrdering Facility: [facility] Address: [address] [place] [address] Result Comment: The [place] Diabetes Association (ADA) provides guidance for cutoff values for fasting glucose and random glucose. The ADA defines fasting as no caloric intake for at least 8 hours. Fasting plasma glucose results between 100 to 125 mg/dL indicate increased risk for diabetes (prediabetes).Fasting plasma glucose results greater than or equal to 126 mg/dL meet the criteria for diagnosis of diabetes. In the absence of unequivocal hyperglycemia, results should be confirmed by repeat testing. In a patient with classic symptoms of hyperglycemia or hyperglycemic crisis, random plasma glucose results greater than or equal to 200 mg/dL meet the criteria for diagnosis of diabetes.Reference: Standards of Medical Care in Diabetes 2016, [place] [employer] Association. Diabetes Care. 2016.39(Suppl 1). Performed By: #### 2 4323-8 ####[facility] [id number] [place] [address] [place] Potassium [Moles/Vol] 4.3 mmol/L Normal 3.7-5.1 [facility] Comment on above: Order Comment: Elfego gilbert Type: BLOOD SPECIMENOrdering Facility: [facility] Address: [address] [place] [id number] Performed By: #### 2 4323-8 ####[facility] MILLWNCLIA [id number] [place] [address] [place] Protein [Mass/Vol] 6.1 g/dL Low 6.3-8.0 [facility] Comment on above: Order Comment: Speci men Type: BLOOD SPECIMENOrdering Facility: [facility] Address: [address] [place] [address] Performed By: #### 2 4323-8 ####[facility] HOSPITALLIA [id number] [place] [address] [place] Sodium [Moles/Vol] 139 mmol/L Normal 136-144 [facility] Comment on above: Order Comment: Speci men Type: BLOOD SPECIMENOrdering Facility: [facility] Address: [address] [place] [address] Performed By: #### 2 4323-8 ####[facility] [id number] [place] [address] [place] Urea nitrogen [Mass/Vol] 30 mg/dL High 9-24 [facility] Comment on above: Order Comment: Speci men Type: BLOOD SPECIMENOrdering Facility: [facility] Address: [address] [place] [address] Performed By: #### 2 4323-8 ####[facility]GNCLIA [id number] [place] [address] [place] EPO SerPl-aCncon 03-31-2025 Erythropoietin (EPO) Qn 78.7 mIU/mL High 2.6-18.5 [facility] Comment on above: Order Comment: Speci men Type: BLOOD SPECIMENOrdering Facility: [facility] Address: [address] [place] [address] Performed By: #### 1 5061-5 ####[facility] LABCLIA [id number] [place] [address] [place] Ferritin SerPl-[facility] Networkon 2024 Ferritin [Mass/Vol] 279.0 ng/mL Normal 30.3-565.7 [facility] Comment on above: Order Comment: Speci men Type: BLOOD SPECIMENOrdering Facility: [facility] Address: [address] [place] [address] Performed By: #### 5 0190-8, 13560-7, 2275-4 ####[facility] LABCLIA [id number] [place] [address] [place] Folate SerPl-mCncon 03-31-20 25 Folate [Mass/Vol] ng/mL Normal >4.7 [facility] Comment on above: Order Comment: Speci men Type: BLOOD SPECIMENOrdering Facility: [facility] Address: [address] [place] [address] Result Comment: A re sult of > 20 ng/mL is not necessarily indicative of a pathologic or treatable condition: it reflects a limitation of the test methodology.Assay reference range: 4.8 to 24.2 ng/mL. Suitable for detection of folate deficiency.Reference:Folate III (Folate III) [package insert V 1.0 Haitian]. [facility], [place], [place]: September 2015. Performed By: #### 2 284-8, 2132-9 ####[facility]TONIA [id number] [place] [address] [place] Iron and Iron binding capaci panelon 03-31-2025 Iron [Mass/Vol] 179 ug/dL Normal 41-186 [facility] Comment on above: Order Comment: Speci men Type: BLOOD SPECIMENOrdering Facility: [facility] Address: [address] [place] [address] Performed By: #### 5 0190-8, 61896-0, 6-4 ####[facility] LABCLIA [id number] [place] [address] [place] Iron binding capacity [Mass/Vol] 198 ug/dL Low 232-386 [facility] Comment on above: Order Comment: Speci men Type: BLOOD SPECIMENOrdering Facility: [facility] Address: [address] [place] [address] Performed By: #### 5 0190-8, 50979-9, 6-4 ####[facility] LABCLIA [id number] [place] [address] [place] Iron/TIBC [Molar ratio] 90.4 % High 15.0-57.0 [facility] Comment on above: Order Comment: Speci men Type: BLOOD SPECIMENOrdering Facility: [facility] Address: [address] [place] [address] Performed By: #### 5 0190-8, 06466-9, 6-4 ####[facility]TON[facility] [id number] [place] [address] [place] Methylmalonate SerPl-sCncon 03-31-2025 Methylmalonate [Moles/Vol] 0.23 umol/L Normal <=0.40 [facility] Comment on above: Order Comment: Speci men Type: BLOOD SPECIMENOrdering Facility: [facility] Address: [address] [place] [address] Result Comment: This test was developed, and its performance characteristics determined by the [facility] Department of Pathology and Laboratory Medicine. It has not been cleared or approved by the FDA. The [facility] Department of Pathology and Laboratory Medicine is regulated under CLIA as qualified to perform high-complexity testing. This test is used for clinical purposes. It should not be regarded as investigational or for research. Performed By: #### 1 3964-2 ####[facility] LABIA [id number] [place] [address] [place] NT-proBNP SerPl-mCncon 03-31 Natriuretic peptide.B prohormone N-Terminal [Mass/Vol] 4857 pg/mL High <450 [facility] Comment on above: Order Comment: Speci men Type: BLOOD SPECIMENOrdering Facility: [facility] Address: [address] [place] [address] Performed By: #### 5 0190-8, 64277-1, 2276-4 ####[facility] LABCLIA [id number] [place] [address] [place] Vit B12 SerPl-mCncon 05-23-2 025 Cobalamin (Vitamin B12) [Mass/Vol] 685 pg/mL Normal 232-1245 [facility] Comment on above: Order Comment: Speci men Type: BLOOD SPECIMENOrdering Facility: [facility] Address: [address] [place] [address] Performed By: #### 2 284-8, 2132-9 ####[facility] LABCLIA [id number] [place] [address] [place] US DVT LOWER BILon US DVT LOWER RALF Normal [facility] CNOVon 03-27-2025 CNOV Normal [facility] CBC W Auto Differential pane l (Bld)on 03-17-2025 Basophils (Bld) [#/Vol] 0.07 10*3/uL Normal <0.11 [facility] Comment on above: Order Comment: Speci men Type: BLOOD SPECIMENOrdering Facility: [facility] Address: [address] [place] [address] Performed By: #### 5 7021-8 ####[facility]OSPITALWROBERTLIA [id number] [place] [address] [place] Basophils/100 WBC (Bld) 1.3 % Normal [facility] Comment on above: Order Comment: Speci men Type: BLOOD SPECIMENOrdering Facility: [facility] Address: [address] [place] [address] Performed By: #### 5 7021-8 ####[facility]GNCLIA [id number] [place] [address] [place] Differential cell count method Nom (Bld) Auto Normal [facility] Comment on above: Order Comment: Speci men Type: BLOOD SPECIMENOrdering Facility: [facility] Address: [address] [place] [address] Performed By: #### 5 7021-8 ####[facility] JONHSOCONSTANCEManuel [id number] [place] [address] [place] Eosinophils (Bld) [#/Vol] 0.10 10*3/uL Normal <0.46 [facility] Comment on above: Order Comment: Speci men Type: BLOOD SPECIMENOrdering Facility: [facility] Address: [address] [place] [address] Performed By: #### 5 7021-8 ####[facility]GMALENA [id number] [place] [address] [place] Eosinophils/100 WBC (Bld) 1.8 % Normal [facility] Comment on above: Order Comment: Speci men Type: BLOOD SPECIMENOrdering Facility: [facility] Address: [address] [place] [address] Performed By: #### 5 7021-8 ####[facility] PET[facility]BURGNCLIManuel [id number] [place] [address] [place] Erythrocyte distribution width (RBC) [Ratio] 22.2 % High 11.5-15.0 [facility] Comment on above: Order Comment: Speci men Type: BLOOD SPECIMENOrdering Facility: [facility] Address: [address] [place] [address] Performed By: #### 5 7021-8 ####[facility] HOSPITALLIA [id number] [place] [address] [place] Hematocrit (Bld) [Volume fraction] 27.5 % Low 39.0-51.0 [facility] Comment on above: Order Comment: Speci men Type: BLOOD SPECIMENOrdering Facility: [facility] Address: [address] [place] [address] Performed By: #### 5 7021-8 ####[facility]GNCLIA [id number] [place] [address] [place] Hemoglobin (Bld) [Mass/Vol] 9.3 g/dL Low 13.0-17.0 [facility] Comment on above: Order Comment: Speci men Type: BLOOD SPECIMENOrdering Facility: [facility] Address: [address] [place], [place] [address] Performed By: #### 5 7021-8 ####[facility] [id number] [place] [address] [place] Immature granulocytes (Bld) [#/Vol] 0.03 10*3/uL Normal <0.10 [facility] Comment on above: Order Comment: Speci men Type: BLOOD SPECIMENOrdering Facility: [facility] Address: [address] [place] [address] Performed By: #### 5 7021-8 ####[facility] [id number] [place] [address] [place] Immature granulocytes/100 WBC (Bld) 0.6 % Normal [facility] Comment on above: Order Comment: Speci men Type: BLOOD SPECIMENOrdering Facility: [facility] Address: [address] [place], [place] [address] Performed By: #### 5 7021-8 ####[facility]OSPITALLIA [id number] [place] [address] [place] Lymphocytes (Bld) [#/Vol] 1.31 10*3/uL Normal 1.00-4.00 [facility] Comment on above: Order Comment: Speci men Type: BLOOD SPECIMENOrdering Facility: [facility] Address: [address] [place] [address] Performed By: #### 5 7021-8 ####[facility]OSPITALLI [id number] [place] [address] [place] Lymphocytes/100 WBC (Bld) 24.0 % Normal [facility] Comment on above: Order Comment: Speci men Type: BLOOD SPECIMENOrdering Facility: [facility] Address: [address] [place] [address] Performed By: #### 5 7021-8 ####[facility] PET[facility]GMALENA [id number] [place] [address] [place] MCH (RBC) [Entitic mass] 37.5 pg High 26.0-34.0 [facility] Comment on above: Order Comment: Speci men Type: BLOOD SPECIMENOrdering Facility: [facility] Address: [address] [place] [address] Performed By: #### 5 7021-8 ####[facility] PET[facility]BURGNCRADHA [id number] [place] [address] [place] MCHC (RBC) [Mass/Vol] 33.8 g/dL Normal 30.5-36.0 [facility] Comment on above: Order Comment: Speci men Type: BLOOD SPECIMENOrdering Facility: [facility] Address: [address] [place] [address] Performed By: #### 5 7021-8 ####[facility] PET[facility]GNCLIA [id number] [place] [address] [place] MCV (RBC) [Entitic vol] 110.9 fL High 80.0-100.0 [facility] Comment on above: Order Comment: Speci men Type: BLOOD SPECIMENOrdering Facility: [facility] Address: [address] [place] [address] Performed By: #### 5 7021-8 ####[facility] PETERSBURGNCLIA [id number] [place] [address] [place] Monocytes (Bld) [#/Vol] 0.71 10*3/uL Normal <0.87 [facility] Comment on above: Order Comment: Speci men Type: BLOOD SPECIMENOrdering Facility: [facility] Address: [address] [place] [address] Performed By: #### 5 7021-8 ####[facility] JONHWilliamsNCCONSTANCEA [id number] [place] [address] [place] Monocytes/100 WBC (Bld) 13.0 % Normal [facility] Comment on above: Order Comment: Speci men Type: BLOOD SPECIMENOrdering Facility: [facility] Address: [address] [place] [address] Performed By: #### 5 7021-8 ####[facility]GNCSEVI[facility] [id number] [place] [address] [place] Neutrophils (Bld) [#/Vol] 3.23 10*3/uL Normal 1.45-7.50 [facility] Comment on above: Order Comment: Speci men Type: BLOOD SPECIMENOrdering Facility: [facility] Address: [address] [place] [address] Performed By: #### 5 7021-8 ####[facility]A [id number] [place] [address] [place] Neutrophils/100 WBC (Bld) 59.3 % Normal [facility] Comment on above: Order Comment: Speci men Type: BLOOD SPECIMENOrdering Facility: [facility] Address: [address] [place] [address] Performed By: #### 5 7021-8 ####[facility]A [id number] [place] [address] [place] Nucleated RBC (Bld) [#/Vol] 0.04 10*3/uL High <0.01 [facility] Comment on above: Order Comment: Speci men Type: BLOOD SPECIMENOrdering Facility: [facility] Address: [address] [place] [address] Performed By: #### 5 7021-8 ####[facility] JONHCHIPPEWA FALLSROBERTLIA [id number] [place] [address] [place] Nucleated RBC/100 WBC (Bld) [Ratio] 0.7 /100 WBC Normal [facility] Comment on above: Order Comment: Speci men Type: BLOOD SPECIMENOrdering Facility: [facility] Address: [address] [place] [address] Performed By: #### 5 7021-8 ####[facility] PETERSBURGKOSTAA [id number] [place] [address] [place] Platelet mean volume (Bld) [Entitic vol] 11.6 fL Normal 9.0-12.7 [facility] Comment on above: Order Comment: Speci men Type: BLOOD SPECIMENOrdering Facility: [facility] Address: [address] [place] [address] Performed By: #### 5 7021-8 ####[facility] PETERSBURGNCLIA [id number] [place] [address] [place] Platelets (Bld) [#/Vol] 300 10*3/uL Normal 150-400 [facility] Comment on above: Order Comment: Speci men Type: BLOOD SPECIMENOrdering Facility: [facility] Address: [address] [place] [address] Performed By: #### 5 7021-8 ####[facility] HOSPITALLIA [id number] [place] [address] [place] RBC (Bld) [#/Vol] 2.48 10*6/uL Low 4.20-6.00 [facility] Comment on above: Order Comment: Speci men Type: BLOOD SPECIMENOrdering Facility: [facility] Address: [address] [place] [address] Performed By: #### 5 7021-8 ####[facility] [id number] [place] [address] [place] WBC (Bld) [#/Vol] 5.45 10*3/uL Normal 3.70-11.00 [facility] Comment on above: Order Comment: Speci men Type: BLOOD SPECIMENOrdering Facility: [facility] Address: [address] [place] [address] Performed By: #### 5 7021-8 ####[facility] HOSPITALLIA [id number] [place] [address] [place] CNPNon 03-17-2025 CNPN Normal [facility] CBC W Auto Differential pane l (Bld)on 03-03-2025 Basophils (Bld) [#/Vol] 0.05 10*3/uL Normal <0.11 [facility] Comment on above: Order Comment: Speci men Type: BLOOD SPECIMENOrdering Facility: [facility] Address: [address] [place] [address] Performed By: #### 5 7021-8 ####[facility] HOSPITALLIA [id number] [place] [address] [place] Basophils/100 WBC (Bld) 0.8 % Normal [facility] Comment on above: Order Comment: Speci men Type: BLOOD SPECIMENOrdering Facility: [facility] Address: [address] [place] [address] Performed By: #### 5 7021-8 ####[facility]BURGNCLIA [id number] [place] [address] [place] Differential cell count method Nom (Bld) Auto Normal [facility] Comment on above: Order Comment: Speci men Type: BLOOD SPECIMENOrdering Facility: [facility] Address: [address] [place] [address] Performed By: #### 5 7021-8 ####[facility] PETERSBURGROBERTLIA [id number] [place] [id number] [place] Eosinophils (Bld) [#/Vol] 0.11 10*3/uL Normal <0.46 [facility] Comment on above: Order Comment: Speci men Type: BLOOD SPECIMENOrdering Facility: [facility] Address: [address] [place] [address] Performed By: #### 5 7021-8 ####[facility] [id number] [place] [address] [place] Eosinophils/100 WBC (Bld) 1.8 % Normal [facility] Comment on above: Order Comment: Speci men Type: BLOOD SPECIMENOrdering Facility: [facility] Address: [address] [place] [address] Performed By: #### 5 7021-8 ####[facility]GNCSEVI[facility] [id number] [place] [address] [place] Erythrocyte distribution width (RBC) [Ratio] 22.6 % High 11.5-15.0 [facility] Comment on above: Order Comment: Speci men Type: BLOOD SPECIMENOrdering Facility: [facility] Address: [address] [place] [address] Performed By: #### 5 7021-8 ####[facility] PETERSBURGNCLI [id number] [place] [address] [place] Hematocrit (Bld) [Volume fraction] 25.6 % Low 39.0-51.0 [facility] Comment on above: Order Comment: Speci men Type: BLOOD SPECIMENOrdering Facility: [facility] Address: [address] [place] [address] Performed By: #### 5 7021-8 ####[facility]BURGNCLIA [id number] [place] [address] [place] Hemoglobin (Bld) [Mass/Vol] 8.7 g/dL Low 13.0-17.0 [facility] Comment on above: Order Comment: Speci men Type: BLOOD SPECIMENOrdering Facility: [facility] Address: [address] [place] [address] Performed By: #### 5 7021-8 ####[facility] HASEEB [id number] [place] [address] [place] Immature granulocytes (Bld) [#/Vol] 0.03 10*3/uL Normal <0.10 [facility] Comment on above: Order Comment: Speci men Type: BLOOD SPECIMENOrdering Facility: [facility] Address: [address] [place] [address] Performed By: #### 5 7021-8 ####[facility]BURGROBERTA [id number] [place] [address] [place] Immature granulocytes/100 WBC (Bld) 0.5 % Normal [facility] Comment on above: Order Comment: Speci men Type: BLOOD SPECIMENOrdering Facility: [facility] Address: [address] [place] [address] Performed By: #### 5 7021-8 ####[facility] JACKSONVILLEManuel [id number] [place] [address] [place] Lymphocytes (Bld) [#/Vol] 1.02 10*3/uL Normal 1.00-4.00 [facility] Comment on above: Order Comment: Speci men Type: BLOOD SPECIMENOrdering Facility: [facility] Address: [address] [place] [address] Performed By: #### 5 7021-8 ####[facility]BURGNCLIA [id number] [place] [address] [place] Lymphocytes/100 WBC (Bld) 16.3 % Normal [facility] Comment on above: Order Comment: Speci men Type: BLOOD SPECIMENOrdering Facility: [facility] Address: [address] [place] [address] Performed By: #### 5 7021-8 ####[facility] [id number] [place] [address] [place] MCH (RBC) [Entitic mass] 37.5 pg High 26.0-34.0 [facility] Comment on above: Order Comment: Speci men Type: BLOOD SPECIMENOrdering Facility: [facility] Address: [address] [place] [address] Performed By: #### 5 7021-8 ####[facility] [id number] [place] [address] [place] MCHC (RBC) [Mass/Vol] 34.0 g/dL Normal 30.5-36.0 [facility] Comment on above: Order Comment: Speci men Type: BLOOD SPECIMENOrdering Facility: [facility] Address: [address] [place] [address] Performed By: #### 5 7021-8 ####[facility] [id number] [place] [address] [place] MCV (RBC) [Entitic vol] 110.3 fL High 80.0-100.0 [facility] Comment on above: Order Comment: Speci men Type: BLOOD SPECIMENOrdering Facility: [facility] Address: [address] [place] [address] Performed By: #### 5 7021-8 ####[facility] [id number] [place] [address] [place] Monocytes (Bld) [#/Vol] 0.93 10*3/uL High <0.87 [facility] Comment on above: Order Comment: Speci men Type: BLOOD SPECIMENOrdering Facility: [facility] Address: [address] [place] [address] Performed By: #### 5 7021-8 ####[facility] [id number] [place] [address] [place] Monocytes/100 WBC (Bld) 14.9 % Normal [facility] Comment on above: Order Comment: Speci men Type: BLOOD SPECIMENOrdering Facility: [facility] Address: [address] [place] [address] Performed By: #### 5 7021-8 ####[facility] HOSPITALLIA [id number] [place] [address] [place] Neutrophils (Bld) [#/Vol] 4.10 10*3/uL Normal 1.45-7.50 [facility] Comment on above: Order Comment: Speci men Type: BLOOD SPECIMENOrdering Facility: [facility] Address: [address] [place] [address] Performed By: #### 5 7021-8 ####[facility]A [id number] [place] [address] [place] Neutrophils/100 WBC (Bld) 65.7 % Normal [facility] Comment on above: Order Comment: Speci men Type: BLOOD SPECIMENOrdering Facility: [facility] Address: [address] [place] [address] Performed By: #### 5 7021-8 ####[facility] HOSPITALLIA [id number] [place] [address] [place] Nucleated RBC (Bld) [#/Vol] 10*3/uL Normal <0.01 [facility] Comment on above: Order Comment: Speci men Type: BLOOD SPECIMENOrdering Facility: [facility] Address: [address] [place] [address] Performed By: #### 5 7021-8 ####[facility]A [id number] [place] [address] [place] Nucleated RBC/100 WBC (Bld) [Ratio] 0.0 /100 WBC Normal [facility] Comment on above: Order Comment: Speci men Type: BLOOD SPECIMENOrdering Facility: [facility] Address: [address] [place] [address] Performed By: #### 5 7021-8 ####[facility] RUBENNCRADHA [id number] [place] [address] [place] Platelet mean volume (Bld) [Entitic vol] 11.6 fL Normal 9.0-12.7 [facility] Comment on above: Order Comment: Speci men Type: BLOOD SPECIMENOrdering Facility: [facility] Address: [address] [place] [address] Performed By: #### 5 7021-8 ####[facility] PET[facility]BURGNCManuel [id number] [place] [address] [place] Platelets (Bld) [#/Vol] 227 10*3/uL Normal 150-400 [facility] Comment on above: Order Comment: Speci men Type: BLOOD SPECIMENOrdering Facility: [facility] Address: [address] [place] [address] Performed By: #### 5 7021-8 ####[facility] PETERSBURGNCA [id number] [place] [address] [place] RBC (Bld) [#/Vol] 2.32 10*6/uL Low 4.20-6.00 [facility] Comment on above: Order Comment: Speci men Type: BLOOD SPECIMENOrdering Facility: [facility] Address: [address] [place] [address] Performed By: #### 5 7021-8 ####[facility]BURGNCLIA [id number] [place] [address] [place] WBC (Bld) [#/Vol] 6.24 10*3/uL Normal 3.70-11.00 [facility] Comment on above: Order Comment: Speci men Type: BLOOD SPECIMENOrdering Facility: [facility] Address: [address] [place] [address] Performed By: #### 5 7021-8 ####[facility] MILLTOWNCLIA [id number] [place] [address] [place] CBC W Auto Differential pane l (Bld)on 02-17-2025 Basophils (Bld) [#/Vol] 0.04 10*3/uL Normal <0.11 [facility] Comment on above: Order Comment: Speci men Type: BLOOD SPECIMENOrdering Facility: [facility] Address: [address] [place] [address] Performed By: #### 5 7021-8 ####[facility] MILLWNCLIA [id number] [place] [address] [place] Basophils/100 WBC (Bld) 0.8 % Normal [facility] Comment on above: Order Comment: Speci men Type: BLOOD SPECIMENOrdering Facility: [facility] Address: [address] [place] [address] Performed By: #### 5 7021-8 ####[facility] HOSPITALWNCLIA [id number] [place] [address] [place] Differential cell count method Nom (Bld) Auto Normal [facility] Comment on above: Order Comment: Speci men Type: BLOOD SPECIMENOrdering Facility: [facility] Address: [address] [place] [address] Performed By: #### 5 7021-8 ####[facility] MILLTOWNCLIA [id number] [place] [address] [place] Eosinophils (Bld) [#/Vol] 0.12 10*3/uL Normal <0.46 [facility] Comment on above: Order Comment: Speci men Type: BLOOD SPECIMENOrdering Facility: [facility] Address: [address] [place] [address] Performed By: #### 5 7021-8 ####[facility] MILLWNCLIA [id number] [place] [address] [place] Eosinophils/100 WBC (Bld) 2.3 % Normal [facility] Comment on above: Order Comment: Speci men Type: BLOOD SPECIMENOrdering Facility: [facility] Address: [address] [place] [address] Performed By: #### 5 7021-8 ####[facility]BURGROBERTSEVI[facility] [id number] [place] [address] [place] Erythrocyte distribution width (RBC) [Ratio] 22.2 % High 11.5-15.0 [facility] Comment on above: Order Comment: Speci men Type: BLOOD SPECIMENOrdering Facility: [facility] Address: [address] [place] [address] Performed By: #### 5 7021-8 ####[facility]GNCSEVI[facility] [id number] [place] [address] [place] Hematocrit (Bld) [Volume fraction] 27.2 % Low 39.0-51.0 [facility] Comment on above: Order Comment: Speci men Type: BLOOD SPECIMENOrdering Facility: [facility] Address: [address] [place] [address] Performed By: #### 5 7021-8 ####[facility] PETERSBURGMALENA [id number] [place] [address] [place] Hemoglobin (Bld) [Mass/Vol] 9.0 g/dL Low 13.0-17.0 [facility] Comment on above: Order Comment: Speci men Type: BLOOD SPECIMENOrdering Facility: [facility] Address: [address] [place] [address] Performed By: #### 5 7021-8 ####[facility] PET[facility]BURGNCLI [id number] [place] [address] [place] Immature granulocytes (Bld) [#/Vol] 10*3/uL Normal <0.10 [facility] Comment on above: Order Comment: Speci men Type: BLOOD SPECIMENOrdering Facility: [facility] Address: [address] [place] [address] Performed By: #### 5 7021-8 ####[facility] [id number] [place] [address] [place] Immature granulocytes/100 WBC (Bld) 0.2 % Normal [facility] Comment on above: Order Comment: Speci men Type: BLOOD SPECIMENOrdering Facility: [facility] Address: [address] [place] [address] Performed By: #### 5 7021-8 ####[facility] [id number] [place] [address] [place] Lymphocytes (Bld) [#/Vol] 0.89 10*3/uL Low 1.00-4.00 [facility] Comment on above: Order Comment: Speci men Type: BLOOD SPECIMENOrdering Facility: [facility] Address: [address] [place] [address] Performed By: #### 5 7021-8 ####[facility] [id number] [place] [address] [place] Lymphocytes/100 WBC (Bld) 17.1 % Normal [facility] Comment on above: Order Comment: Speci men Type: BLOOD SPECIMENOrdering Facility: [facility] Address: [address] [place], [place] [address] Performed By: #### 5 7021-8 ####[facility] [id number] [place] [address] [place] MCH (RBC) [Entitic mass] 36.6 pg High 26.0-34.0 [facility] Comment on above: Order Comment: Speci men Type: BLOOD SPECIMENOrdering Facility: [facility] Address: [address] [place] [address] Performed By: #### 5 7021-8 ####[facility] JONHWNCLIA [id number] [place] [address] [place] MCHC (RBC) [Mass/Vol] 33.1 g/dL Normal 30.5-36.0 [facility] Comment on above: Order Comment: Speci men Type: BLOOD SPECIMENOrdering Facility: [facility] Address: [address] [place] [address] Performed By: #### 5 7021-8 ####[facility]GNCLIA [id number] [place] [address] [place] MCV (RBC) [Entitic vol] 110.6 fL High 80.0-100.0 [facility] Comment on above: Order Comment: Speci men Type: BLOOD SPECIMENOrdering Facility: [facility] Address: [address] [place] [address] Performed By: #### 5 7021-8 ####[facility]GNCLIA [id number] [place] [address] [place] Monocytes (Bld) [#/Vol] 0.76 10*3/uL Normal <0.87 [facility] Comment on above: Order Comment: Speci men Type: BLOOD SPECIMENOrdering Facility: [facility] Address: [address] [place] [address] Performed By: #### 5 7021-8 ####[facility]BURGNCLIA [id number] [place] [address] [place] Monocytes/100 WBC (Bld) 14.6 % Normal [facility] Comment on above: Order Comment: Speci men Type: BLOOD SPECIMENOrdering Facility: [facility] Address: [address] [place] [address] Performed By: #### 5 7021-8 ####[facility] PETERSBURGNCLI [id number] [place] [address] [place] Neutrophils (Bld) [#/Vol] 3.39 10*3/uL Normal 1.45-7.50 [facility] Comment on above: Order Comment: Speci men Type: BLOOD SPECIMENOrdering Facility: [facility] Address: [address] [place] [address] Performed By: #### 5 7021-8 ####[facility]AC[facility] HOSPITALWINLIA [id number] [place] [address] [place] Neutrophils/100 WBC (Bld) 65.0 % Normal [facility] Comment on above: Order Comment: Speci men Type: BLOOD SPECIMENOrdering Facility: [facility] Address: [address] [place] [address] Performed By: #### 5 7021-8 ####[facility]GNCSEVI[facility] [id number] [place] [address] [place] Nucleated RBC (Bld) [#/Vol] 0.02 10*3/uL High <0.01 [facility] Comment on above: Order Comment: Speci men Type: BLOOD SPECIMENOrdering Facility: [facility] Address: [address] [place] [address] Performed By: #### 5 7021-8 ####[facility] PETERSBURGNCLIA [id number] [place] [address] [place] Nucleated RBC/100 WBC (Bld) [Ratio] 0.4 /100 WBC Normal [facility] Comment on above: Order Comment: Speci men Type: BLOOD SPECIMENOrdering Facility: [facility] Address: [address] [place] [address] Performed By: #### 5 7021-8 ####[facility] PETERSBURGNCLIA [id number] [place] [address] [place] Platelet mean volume (Bld) [Entitic vol] 10.9 fL Normal 9.0-12.7 [facility] Comment on above: Order Comment: Speci men Type: BLOOD SPECIMENOrdering Facility: [facility] Address: [address] [place] [address] Performed By: #### 5 7021-8 ####[facility] PETERSBURGNCRADHA [id number] [place] [address] [place] Platelets (Bld) [#/Vol] 226 10*3/uL Normal 150-400 [facility] Comment on above: Order Comment: Speci men Type: BLOOD SPECIMENOrdering Facility: [facility] Address: [address] [place] [address] Performed By: #### 5 7021-8 ####[facility]GNCSEVI[facility] [id number] [place] [address] [place] RBC (Bld) [#/Vol] 2.46 10*6/uL Low 4.20-6.00 [facility] Comment on above: Order Comment: Speci men Type: BLOOD SPECIMENOrdering Facility: [facility] Address: [address] [place] [address] Performed By: #### 5 7021-8 ####[facility] PETERSBURGNCA [id number] [place] [address] [place] WBC (Bld) [#/Vol] 5.21 10*3/uL Normal 3.70-11.00 [facility] Comment on above: Order Comment: Speci men Type: BLOOD SPECIMENOrdering Facility: [facility] Address: [address] [place] [address] Performed By: #### 5 7021-8 ####[facility] PETERSBURGNCLIA [id number] [place] [address] [place] CBC W Auto Differential pane l (Bld)on 02-03-2025 Basophils (Bld) [#/Vol] 0.04 10*3/uL Normal <0.11 [facility] Comment on above: Order Comment: Speci men Type: BLOOD SPECIMENOrdering Facility: [facility] Address: [address] [place] [address] Performed By: #### 5 7021-8 ####[facility] JONHWNCLIA [id number] [place] [address] [place] Basophils/100 WBC (Bld) 0.8 % Normal [facility] Comment on above: Order Comment: Speci men Type: BLOOD SPECIMENOrdering Facility: [facility] Address: [address] [place] [address] Performed By: #### 5 7021-8 ####[facility] HOSPITALLIA [id number] [place] [address] [place] Differential cell count method Nom (Bld) Auto Normal [facility] Comment on above: Order Comment: Speci men Type: BLOOD SPECIMENOrdering Facility: [facility] Address: [address] [place] [address] Performed By: #### 5 7021-8 ####[facility] HOSPITALLIA [id number] [place] [address] [place] Eosinophils (Bld) [#/Vol] 0.11 10*3/uL Normal <0.46 [facility] Comment on above: Order Comment: Speci men Type: BLOOD SPECIMENOrdering Facility: [facility] Address: [address] [place] [address] Performed By: #### 5 7021-8 ####[facility] MILLWNCLIA [id number] [place] [address] [place] Eosinophils/100 WBC (Bld) 2.1 % Normal [facility] Comment on above: Order Comment: Speci men Type: BLOOD SPECIMENOrdering Facility: [facility] Address: [address] [place] [address] Performed By: #### 5 7021-8 ####[facility] HOSPITALWNCLIA [id number] [place] [address] [place] Erythrocyte distribution width (RBC) [Ratio] 23.0 % High 11.5-15.0 [facility] Comment on above: Order Comment: Speci men Type: BLOOD SPECIMENOrdering Facility: [facility] Address: [address] [place] [address] Performed By: #### 5 7021-8 ####[facility]GMAL[facility] [id number] [place] [address] [place] Hematocrit (Bld) [Volume fraction] 27.7 % Low 39.0-51.0 [facility] Comment on above: Order Comment: Speci men Type: BLOOD SPECIMENOrdering Facility: [facility] Address: [address] [place] [address] Performed By: #### 5 7021-8 ####[facility]ERS[facility]GKOSTA [id number] [place] [address] [place] Hemoglobin (Bld) [Mass/Vol] 9.1 g/dL Low 13.0-17.0 [facility] Comment on above: Order Comment: Speci men Type: BLOOD SPECIMENOrdering Facility: [facility] Address: [address] [place] [address] Performed By: #### 5 7021-8 ####[facility] PETERSBURGROBERTLIManuel [id number] [place] [address] [place] Immature granulocytes (Bld) [#/Vol] 10*3/uL Normal <0.10 [facility] Comment on above: Order Comment: Speci men Type: BLOOD SPECIMENOrdering Facility: [facility] Address: [address] [place] [address] Performed By: #### 5 7021-8 ####[facility] PETERSBURGNCLIA [id number] [place] [address] [place] Immature granulocytes/100 WBC (Bld) 0.2 % [facility] Comment on above: Order Comment: Speci men Type: BLOOD SPECIMENOrdering Facility: [facility] Address: [address] [place] [address] Performed By: #### 5 7021-8 ####[facility] [id number] [place] [address] [place] Lymphocytes (Bld) [#/Vol] 1.16 10*3/uL Normal 1.00-4.00 [facility] Comment on above: Order Comment: Speci men Type: BLOOD SPECIMENOrdering Facility: [facility] Address: [address] [place] [address] Performed By: #### 5 7021-8 ####[facility] [id number] [place] [address] [place] Lymphocytes/100 WBC (Bld) 22.2 % Normal [facility] Comment on above: Order Comment: Speci men Type: BLOOD SPECIMENOrdering Facility: [facility] Address: [address] [place] [address] Performed By: #### 5 7021-8 ####[facility] [id number] [place] [address] [place] MCH (RBC) [Entitic mass] 36.1 pg High 26.0-34.0 [facility] Comment on above: Order Comment: Speci men Type: BLOOD SPECIMENOrdering Facility: [facility] Address: [address] [place] [address] Performed By: #### 5 7021-8 ####[facility] [id number] [place] [address] [place] MCHC (RBC) [Mass/Vol] 32.9 g/dL Normal 30.5-36.0 [facility] Comment on above: Order Comment: Speci men Type: BLOOD SPECIMENOrdering Facility: [facility] Address: [address] [place] [address] Performed By: #### 5 7021-8 ####[facility] JONHCHIPPEWA FALLSMALENA [id number] [place] [address] [place] MCV (RBC) [Entitic vol] 109.9 fL High 80.0-100.0 [facility] Comment on above: Order Comment: Speci men Type: BLOOD SPECIMENOrdering Facility: [facility] Address: [address] [place] [address] Performed By: #### 5 7021-8 ####[facility]NCManuel [id number] [place] [address] [place] Monocytes (Bld) [#/Vol] 0.71 10*3/uL Normal <0.87 [facility] Comment on above: Order Comment: Speci men Type: BLOOD SPECIMENOrdering Facility: [facility] Address: [address] [place] [address] Performed By: #### 5 7021-8 ####[facility] [id number] [place] [address] [place] Monocytes/100 WBC (Bld) 13.6 % [facility] Comment on above: Order Comment: Speci men Type: BLOOD SPECIMENOrdering Facility: [facility] Address: [address] [place] [address] Performed By: #### 5 7021-8 ####[facility]GNCL[facility] [id number] [place] [address] [place] Neutrophils (Bld) [#/Vol] 3.19 10*3/uL Normal 1.45-7.50 [facility] Comment on above: Order Comment: Speci men Type: BLOOD SPECIMENOrdering Facility: [facility] Address: [address] [place] [address] Performed By: #### 5 7021-8 ####[facility] JONHWNCLIA [id number] [place] [address] [place] Neutrophils/100 WBC (Bld) 61.1 % [facility] Comment on above: Order Comment: Speci men Type: BLOOD SPECIMENOrdering Facility: [facility] Address: [address] [place] [address] Performed By: #### 5 7021-8 ####[facility] [id number] [place] [address] [place] Nucleated RBC (Bld) [#/Vol] 0.03 10*3/uL High <0.01 [facility] Comment on above: Order Comment: Speci men Type: BLOOD SPECIMENOrdering Facility: [facility] Address: [address] [place] [address] Performed By: #### 5 7021-8 ####[facility] [id number] [place] [address] [place] Nucleated RBC/100 WBC (Bld) [Ratio] 0.6 /100 WBC [facility] Comment on above: Order Comment: Speci men Type: BLOOD SPECIMENOrdering Facility: [facility] Address: [address] [place] [address] Performed By: #### 5 7021-8 ####[facility] [id number] [place] [address] [place] Platelet mean volume (Bld) [Entitic vol] 10.4 fL Normal 9.0-12.7 [facility] Comment on above: Order Comment: Speci men Type: BLOOD SPECIMENOrdering Facility: [facility] Address: [address] [place] [address] Performed By: #### 5 7021-8 ####[facility] HOSPITALLIA [id number] [place] [address] [place] Platelets (Bld) [#/Vol] 252 10*3/uL Normal 150-400 [facility] Comment on above: Order Comment: Speci men Type: BLOOD SPECIMENOrdering Facility: [facility] Address: [address] [place] [address] Performed By: #### 5 7021-8 ####[facility]GKOSTAA [id number] [place] [address] [place] RBC (Bld) [#/Vol] 2.52 10*6/uL Low 4.20-6.00 [facility] Comment on above: Order Comment: Speci men Type: BLOOD SPECIMENOrdering Facility: [facility] Address: [address] [place] [address] Performed By: #### 5 7021-8 ####[facility]GNCManuel [id number] [place] [address] [place] WBC (Bld) [#/Vol] 5.22 10*3/uL Normal 3.70-11.00 [facility] Comment on above: Order Comment: Speci men Type: BLOOD SPECIMENOrdering Facility: [facility] Address: [address] [place] [address] Performed By: #### 5 7021-8 ####[facility]GNCCONSTANCEA [id number] [place] [address] [place] CNOVon 01-31-2025 CNOV [facility] CBC W Auto Differential pane l (Bld)on 01-20-2025 Basophils (Bld) [#/Vol] 0.05 10*3/uL Normal <0.11 [facility] Comment on above: Order Comment: Speci men Type: BLOOD SPECIMENOrdering Facility: [facility] Address: [address] [place] [address] Performed By: #### 5 7021-8 ####[facility]GNCLIA [id number] [place] [address] [place] Basophils/100 WBC (Bld) 0.9 % [facility] Comment on above: Order Comment: Speci men Type: BLOOD SPECIMENOrdering Facility: [facility] Address: [address] [place] [address] Performed By: #### 5 7021-8 ####[facility]GNCLIA [id number] [place] [address] [place] Differential cell count method Nom (Bld) Auto Normal [facility] Comment on above: Order Comment: Speci men Type: BLOOD SPECIMENOrdering Facility: [facility] Address: [address] [place] [address] Performed By: #### 5 7021-8 ####[facility] [id number] [place] [address] [place] Eosinophils (Bld) [#/Vol] 0.12 10*3/uL Normal <0.46 [facility] Comment on above: Order Comment: Speci men Type: BLOOD SPECIMENOrdering Facility: [facility] Address: [address] [place] [address] Performed By: #### 5 7021-8 ####[facility]A [id number] [place] [address] [place] Eosinophils/100 WBC (Bld) 2.2 % [facility] Comment on above: Order Comment: Speci men Type: BLOOD SPECIMENOrdering Facility: [facility] Address: [address] [place] [address] Performed By: #### 5 7021-8 ####[facility] [id number] [place] [address] [place] Erythrocyte distribution width (RBC) [Ratio] 21.7 % High 11.5-15.0 [facility] Comment on above: Order Comment: Speci men Type: BLOOD SPECIMENOrdering Facility: [facility] Address: [address] [place] [address] Performed By: #### 5 7021-8 ####[facility] RUBENROBERTLIA [id number] [place] [address] [place] Hematocrit (Bld) [Volume fraction] 28.9 % Low 39.0-51.0 [facility] Comment on above: Order Comment: Speci men Type: BLOOD SPECIMENOrdering Facility: [facility] Address: [address] [place] [address] Performed By: #### 5 7021-8 ####[facility]GNCLIA [id number] [place] [address] [place] Hemoglobin (Bld) [Mass/Vol] 9.6 g/dL Low 13.0-17.0 [facility] Comment on above: Order Comment: Speci men Type: BLOOD SPECIMENOrdering Facility: [facility] Address: [address] [place] [address] Performed By: #### 5 7021-8 ####[facility]BURGROBERTLIA [id number] [place] [address] [place] Immature granulocytes (Bld) [#/Vol] 10*3/uL Normal <0.10 [facility] Comment on above: Order Comment: Speci men Type: BLOOD SPECIMENOrdering Facility: [facility] Address: [address] [place] [address] Performed By: #### 5 7021-8 ####[facility]ERS[facility]GNCLIA [id number] [place] [address] [place] Immature granulocytes/100 WBC (Bld) 0.4 % [facility] Comment on above: Order Comment: Speci men Type: BLOOD SPECIMENOrdering Facility: [facility] Address: [address] [place] [address] Performed By: #### 5 7021-8 ####[facility] PETERS[facility]GNCLIA [id number] [place] [address] [place] Lymphocytes (Bld) [#/Vol] 0.85 10*3/uL Low 1.00-4.00 [facility] Comment on above: Order Comment: Speci men Type: BLOOD SPECIMENOrdering Facility: [facility] Address: [address] [place] [address] Performed By: #### 5 7021-8 ####[facility] [id number] [place] [address] [place] Lymphocytes/100 WBC (Bld) 15.9 % [facility] Comment on above: Order Comment: Speci men Type: BLOOD SPECIMENOrdering Facility: [facility] Address: [address] [place] [address] Performed By: #### 5 7021-8 ####[facility] [id number] [place] [address] [place] MCH (RBC) [Entitic mass] 36.5 pg High 26.0-34.0 [facility] Comment on above: Order Comment: Speci men Type: BLOOD SPECIMENOrdering Facility: [facility] Address: [address] [place] [address] Performed By: #### 5 7021-8 ####[facility] [id number] [place] [address] [place] MCHC (RBC) [Mass/Vol] 33.2 g/dL Normal 30.5-36.0 [facility] Comment on above: Order Comment: Speci men Type: BLOOD SPECIMENOrdering Facility: [facility] Address: [address] [place] [address] Performed By: #### 5 7021-8 ####[facility]GNCLI [id number] [place] [address] [place] MCV (RBC) [Entitic vol] 109.9 fL High 80.0-100.0 [facility] Comment on above: Order Comment: Speci men Type: BLOOD SPECIMENOrdering Facility: [facility] Address: [address] [place] [address] Performed By: #### 5 7021-8 ####[facility] [id number] [place] [address] [place] Monocytes (Bld) [#/Vol] 0.78 10*3/uL Normal <0.87 [facility] Comment on above: Order Comment: Speci men Type: BLOOD SPECIMENOrdering Facility: [facility] Address: [address] [place] [address] Performed By: #### 5 7021-8 ####[facility] [id number] [place] [address] [place] Monocytes/100 WBC (Bld) 14.6 % [facility] Comment on above: Order Comment: Speci men Type: BLOOD SPECIMENOrdering Facility: [facility] Address: [address] [place] [address] Performed By: #### 5 7021-8 ####[facility] [id number] [place] [address] [place] Neutrophils (Bld) [#/Vol] 3.54 10*3/uL Normal 1.45-7.50 [facility] Comment on above: Order Comment: Speci men Type: BLOOD SPECIMENOrdering Facility: [facility] Address: [address] [place] [address] Performed By: #### 5 7021-8 ####[facility] [id number] [place] [address] [place] Neutrophils/100 WBC (Bld) 66.0 % [facility] Comment on above: Order Comment: Speci men Type: BLOOD SPECIMENOrdering Facility: [facility] Address: [address] [place] [address] Performed By: #### 5 7021-8 ####[facility] JONHWNCLIA [id number] [place] [address] [place] Nucleated RBC (Bld) [#/Vol] 10*3/uL Normal <0.01 [facility] Comment on above: Order Comment: Speci men Type: BLOOD SPECIMENOrdering Facility: [facility] Address: [address] [place] [address] Performed By: #### 5 7021-8 ####[facility]GNCLIA [id number] [place] [address] [place] Nucleated RBC/100 WBC (Bld) [Ratio] 0.0 /100 WBC [facility] Comment on above: Order Comment: Speci men Type: BLOOD SPECIMENOrdering Facility: [facility] Address: [address] [place] [address] Performed By: #### 5 7021-8 ####[facility]GNCLIA [id number] [place] [address] [place] Platelet mean volume (Bld) [Entitic vol] 11.9 fL Normal 9.0-12.7 [facility] Comment on above: Order Comment: Speci men Type: BLOOD SPECIMENOrdering Facility: [facility] Address: [address] [place] [address] Performed By: #### 5 7021-8 ####[facility]GNCLIA [id number] [place] [address] [place] Platelets (Bld) [#/Vol] 266 10*3/uL Normal 150-400 [facility] Comment on above: Order Comment: Speci men Type: BLOOD SPECIMENOrdering Facility: [facility] Address: [address] [place] [address] Performed By: #### 5 7021-8 ####[facility]GNCLIA [id number] [place] [address] [place] RBC (Bld) [#/Vol] 2.63 10*6/uL Low 4.20-6.00 [facility] Comment on above: Order Comment: Speci men Type: BLOOD SPECIMENOrdering Facility: [facility] Address: [address] [place] [address] Performed By: #### 5 7021-8 ####[facility]GNCCONSTANCEA [id number] [place] [address] [place] WBC (Bld) [#/Vol] 5.36 10*3/uL Normal 3.70-11.00 [facility] Comment on above: Order Comment: Speci men Type: BLOOD SPECIMENOrdering Facility: [facility] Address: [address] [place] [address] Performed By: #### 5 7021-8 ####[facility] PET[facility]GNCManuel [id number] [place] [address] [place] Comprehensive metabolic 2000 panelon 01-20-2025 Albumin [Mass/Vol] 4.2 g/dL Normal 3.9-4.9 [facility] Comment on above: Order Comment: Speci men Type: BLOOD SPECIMENOrdering Facility: [facility] Address: [address] [place] [address] Performed By: #### 2 4323-8 ####[facility]GNCCONSTANCEA [id number] [place] [address] [place] ALP [Catalytic activity/Vol] 74 U/L Normal 38-113 [facility] Comment on above: Order Comment: Speci men Type: BLOOD SPECIMENOrdering Facility: [facility] Address: [address] [place], [place] [address] Performed By: #### 2 4323-8 ####[facility] PETERSBURGNCLIA [id number] [place] [address] [place] ALT [Catalytic activity/Vol] 16 U/L Normal 10-54 [facility] Comment on above: Order Comment: Speci men Type: BLOOD SPECIMENOrdering Facility: [facility] Address: [address] [place] [address] Performed By: #### 2 4323-8 ####[facility] MILLTOWNCLIA [id number] [place] [address] [place] Anion gap [Moles/Vol] 10 mmol/L Normal 8-15 [facility] Comment on above: Order Comment: Speci men Type: BLOOD SPECIMENOrdering Facility: [facility] Address: [address] [place] [address] Performed By: #### 2 4323-8 ####[facility]GNCLIA [id number] [place] [address] [place] AST [Catalytic activity/Vol] 24 U/L Normal 14-40 [facility] Comment on above: Order Comment: Speci men Type: BLOOD SPECIMENOrdering Facility: [facility] Address: [address] [place] [address] Performed By: #### 2 4323-8 ####[facility]GNCLIA [id number] [place] [address] [place] Bilirubin [Mass/Vol] 1.3 mg/dL Normal 0.2-1.3 [facility] Comment on above: Order Comment: Speci men Type: BLOOD SPECIMENOrdering Facility: [facility] Address: [address] [place] [address] Performed By: #### 2 4323-8 ####[facility]GNCLIA [id number] [place] [address] [place] Calcium [Mass/Vol] 9.0 mg/dL Normal 8.5-10.2 [facility] Comment on above: Order Comment: Speci men Type: BLOOD SPECIMENOrdering Facility: [facility] Address: [address] [place] [address] Performed By: #### 2 4323-8 ####[facility] MILLWNCLIA [id number] [place] [address] [place] Chloride [Moles/Vol] 100 mmol/L Normal 98-107 [facility] Comment on above: Order Comment: Speci men Type: BLOOD SPECIMENOrdering Facility: [facility] Address: [address] [place] [address] Performed By: #### 2 4323-8 ####[facility]GNCLIA [id number] [place] [address] [place] CO2 [Moles/Vol] 29 mmol/L Normal 22-30 [facility] Comment on above: Order Comment: Speci men Type: BLOOD SPECIMENOrdering Facility: [facility] Address: [address] [place] [address] Performed By: #### 2 4323-8 ####[facility] PETERS[facility]GNCLIA [id number] [place] [address] [place] Creatinine [Mass/Vol] 1.10 mg/dL Normal 0.73-1.22 [facility] Comment on above: Order Comment: Speci men Type: BLOOD SPECIMENOrdering Facility: [facility] Address: [address] [place] [address] Performed By: #### 2 4323-8 ####[facility] PETERSBURGNCLIA [id number] [place] [address] [place] Creatinine and Glomerular filtration rate.predicted panel (S/P/Bld) 64 mL/min/1.73m??? Normal >=60 [facility] Comment on above: Order Comment: Speci men Type: BLOOD SPECIMENOrdering Facility: [facility] Address: [address] [place] [address] Result Comment: Concepción mated Glomerular Filtration Rate (eGFR) is calculated using the 2020 CKD-EPI creatinine equation. This equation utilizes serum creatinine, sex, and age as parameters. The creatinine assay has traceable calibration to isotope dilution-mass spectrometry. Refer to KDIGO guidelines for clinical interpretation. In patients with unstable renal function, e.g. those with acute kidney injury, the eGFR may not accurately reflect actual GFR. Performed By: #### 2 4323-8 ####[facility] PETERSBURGROBERTLIManuel [id number] [place] [address] [place] Glucose [Mass/Vol] 92 mg/dL Normal 74-99 [facility] Comment on above: Order Comment: Elfego gilbert Type: BLOOD SPECIMENOrdering Facility: [facility] Address: [address] [place] [address] Result Comment: The [place] Diabetes Association (ADA) provides guidance for cutoff values for fasting glucose and random glucose. The ADA defines fasting as no caloric intake for at least 8 hours. Fasting plasma glucose results between 100 to 125 mg/dL indicate increased risk for diabetes (prediabetes).Fasting plasma glucose results greater than or equal to 126 mg/dL meet the criteria for diagnosis of diabetes. In the absence of unequivocal hyperglycemia, results should be confirmed by repeat testing. In a patient with classic symptoms of hyperglycemia or hyperglycemic crisis, random plasma glucose results greater than or equal to 200 mg/dL meet the criteria for diagnosis of diabetes.Reference: Standards of Medical Care in Diabetes 2016, [place] Diabetes Association. Diabetes Care. 2016.39(Suppl 1). Performed By: #### 2 4323-8 ####[facility] [id number] [place] [address] [place] Potassium [Moles/Vol] 4.4 mmol/L Normal 3.7-5.1 [facility] Comment on above: Order Comment: Elfego gilbert Type: BLOOD SPECIMENOrdering Facility: [facility] Address: [address] [place] [id number] Performed By: #### 2 4323-8 ####[facility] PETERSBURGNCLI [id number] [place] [address] [place] Protein [Mass/Vol] 6.4 g/dL Normal 6.3-8.0 [facility] Comment on above: Order Comment: Speci men Type: BLOOD SPECIMENOrdering Facility: [facility] Address: [address] [place] [address] Performed By: #### 2 4323-8 ####[facility]PITALWINLIA [id number] [place] [address] [place] Sodium [Moles/Vol] 139 mmol/L Normal 136-144 [facility] Comment on above: Order Comment: Speci men Type: BLOOD SPECIMENOrdering Facility: [facility] Address: [address] [place] [address] Performed By: #### 2 4323-8 ####[facility] [id number] [place] [address] [place] Urea nitrogen [Mass/Vol] 33 mg/dL High 9-24 [facility] Comment on above: Order Comment: Speci men Type: BLOOD SPECIMENOrdering Facility: [facility] Address: [address] [place] [address] Performed By: #### 2 4323-8 ####[facility] [id number] [place] [address] [place] Lipid 1996 panelon 5 Cholesterol [Mass/Vol] 80 mg/dL Normal <200 [facility] Comment on above: Order Comment: Speci men Type: BLOOD SPECIMENOrdering Facility: [facility] Address: [address] [place], [place] [address] Result Comment: <200 mg/dL, Desirable 200-239 mg/dL, Borderline high>239 mg/dL, High Performed By: #### 2 4331-1 ####[facility] LABCLIA [id number] [place] [id number] [place] AMERICAHOCKING VALLEY COMMUNITY HOSPITALLI [id number] [place] [address] [place]#### 3016-3 ####[facility] LABCLIA [id number] [address] [place] Cholesterol in HDL [Mass/Vol] 50 mg/dL Normal >39 [facility] Comment on above: Order Comment: Speci men Type: BLOOD SPECIMENOrdering Facility: [facility] Address: [address] [place] [address] Result Comment: 40-5 9 mg/dL, Acceptable>59 mg/dL, High: Negative risk factor for coronary heart disease<40 mg/dL, Low: Positive risk factor for coronary heart disease Performed By: #### 2 4331-1 ####[facility] LABCLIA [id number] [address] STATES [facility] [id number] [place] [address] [place]#### 3016-3 ####[facility] LABCLIA [id number] [address] [place] Cholesterol in LDL [Mass/Vol] 22 mg/dL Normal <100 [facility] Comment on above: Order Comment: Speci men Type: BLOOD SPECIMENOrdering Facility: [facility] Address: [address] [place] [address] Result Comment: <100 mg/dL, Optimal 100-129 mg/dL, Near optimal/above optimal 130-159 mg/dL, Borderline high 160-189 mg/dL, High>189 mg/dL, Very highSecondary prevention optimal LDL Cholesterol levels are recommended to be < 70 mg/dL Performed By: #### 2 4331-1 ####[facility] LABCLIA [id number] [address] STATES OF [facility] [id number] [address] [place]#### 3016-3 ####[facility] LABCLIA [id number] [place] [id number] [place] Cholesterol in LDL/Cholesterol in HDL [Mass ratio] 0.44 {ratio} Normal <2.54 [facility] Comment on above: Order Comment: Speci men Type: BLOOD SPECIMENOrdering Facility: [facility] Address: [address] [place] [address] Result Comment: Katie barrientos:1. National Cholesterol Education Program ATP III Guideline At-A-Glance Quick Desk Reference: National Heart, Lung, and Blood Emmalena. National Institutes of Health. 2001: NIH Publication No. 01-3305.2. An International Atherosclerosis Society position paper: global recommendations for the management of dyslipidemia: executive summary, Atherosclerosis. 2014: 232(2):410-413. Performed By: #### 2 4331-1 ####[facility] LABCLIA [id number] [address] STATES [facility] [id number] [place] [address] [place]#### 3016-3 ####[facility] LABCLIA [id number] [place] [id number] [place] Cholesterol in VLDL [Mass/Vol] 8 mg/dL Normal <30 [facility] Comment on above: Order Comment: Speci men Type: BLOOD SPECIMENOrdering Facility: [facility] Address: [address] [place] [address] Performed By: #### 2 4331-1 ####[facility]CLIA [id number] [place] [id number] [place] [facility] [id number] [place] [address] [place]#### 3016-3 ####[facility] LABCLIA [id number] [place] [id number] [place] Cholesterol non HDL [Mass/Vol] 30 mg/dL Normal <130 [facility] Comment on above: Order Comment: Speci men Type: BLOOD SPECIMENOrdering Facility: [facility] Address: [address] [place] [address] Result Comment: <130 mg/dL, Optimal 130-159 mg/dL, Near optimal/above optimal 160-189 mg/dL, Borderline high 190-219 mg/dL, High>219 mg/dL, Very highSecondary prevention optimal non HDL Cholesterol levels are recommended to be <100 mg/dL Performed By: #### 2 4331-1 ####[facility] LABCLIA [id number] [place] [address] [place] [id number] [place] [address] [place]#### 3016-3 ####[facility] LABCLIA [id number] [place] [address] [place] Cholesterol.total/Chol esterol in HDL [Mass ratio] 1.60 {ratio} Normal <5.10 [facility] Comment on above: Order Comment: Speci men Type: BLOOD SPECIMENOrdering Facility: [facility] Address: [address] [place] [address] Performed By: #### 2 4331-1 ####[facility] LABCLIA [id number] [place] [id number] [place] [id number] [place] [address] [place]#### 3016-3 ####[facility] LABCLIA [id number] [place] [id number] [place] FASTING TIME 12 hrs Normal [facility] Comment on above: Order Comment: Speci men Type: BLOOD SPECIMENOrdering Facility: [facility] Address: [address] [place] [address] Performed By: #### 2 4331-1 ####[facility] LABCLIA [id number] [address], [place] [address] [place] [facility] [id number] [place] [address] [place]#### 3016-3 ####[facility] LABCLIA [id number] [address], [place] [address] [place] Triglyceride [Mass/Vol] 38 mg/dL Normal <150 [facility] Comment on above: Order Comment: Speci men Type: BLOOD SPECIMENOrdering Facility: [facility] Address: [address] [place] [address] Result Comment: <150 mg/dL, Normal 150-199 mg/dL, Borderline high 200-499 mg/dL, High>499 mg/dL, Very high Performed By: #### 2 4331-1 ####[facility] LABCLIA [id number] [address], [address] STATES OF [facility] [id number] [place] [address] [place]#### 3016-3 ####[facility] LABCLIA [id number] [address], [place] [address] [place] TSH SerPl-aCncon 01-20-2025 TSH Qn 0.605 m[IU]/L Normal 0.270-4.20 0 [facility] Comment on above: Order Comment: Speci men Type: BLOOD SPECIMENOrdering Facility: [facility] Address: [address] [place] [address] Performed By: #### 2 4331-1 ####[facility] LABCLIA [id number] [address], [facility] [place] [facility] [id number] [place] [address] [place]#### 3016-3 ####[facility] LABCLIA [id number] [place] [address] [place] CBC W Auto Differential pane l (Bld)on 01-06-2025 Basophils (Bld) [#/Vol] 0.04 10*3/uL Normal <0.11 [facility] Comment on above: Order Comment: Speci men Type: BLOOD SPECIMENOrdering Facility: [facility] Address: [address] [place] [address] Performed By: #### 5 7021-8 ####[facility] [id number] [place] [address] [place] Basophils/100 WBC (Bld) 0.8 % Normal [facility] Comment on above: Order Comment: Speci men Type: BLOOD SPECIMENOrdering Facility: [facility] Address: [address] [place] [address] Performed By: #### 5 7021-8 ####[facility] [id number] [place] [address] [place] Differential cell count method Nom (Bld) Auto Normal [facility] Comment on above: Order Comment: Speci men Type: BLOOD SPECIMENOrdering Facility: [facility] Address: [address] [place] [address] Performed By: #### 5 7021-8 ####[facility] [id number] [place] [address] [place] Eosinophils (Bld) [#/Vol] 0.13 10*3/uL Normal <0.46 [facility] Comment on above: Order Comment: Speci men Type: BLOOD SPECIMENOrdering Facility: [facility] Address: [address] [place] [address] Performed By: #### 5 7021-8 ####[facility] JONHSOLIA [id number] [place] [address] [place] Eosinophils/100 WBC (Bld) 2.5 % Normal [facility] Comment on above: Order Comment: Speci men Type: BLOOD SPECIMENOrdering Facility: [facility] Address: [address] [place] [address] Performed By: #### 5 7021-8 ####[facility] [id number] [place] [address] [place] Erythrocyte distribution width (RBC) [Ratio] 21.6 % High 11.5-15.0 [facility] Comment on above: Order Comment: Speci men Type: BLOOD SPECIMENOrdering Facility: [facility] Address: [address] [place] [address] Performed By: #### 5 7021-8 ####[facility] [id number] [place] [address] [place] Hematocrit (Bld) [Volume fraction] 29.4 % Low 39.0-51.0 [facility] Comment on above: Order Comment: Speci men Type: BLOOD SPECIMENOrdering Facility: [facility] Address: [address] [place] [address] Performed By: #### 5 7021-8 ####[facility] [id number] [place] [address] [place] Hemoglobin (Bld) [Mass/Vol] 9.7 g/dL Low 13.0-17.0 [facility] Comment on above: Order Comment: Speci men Type: BLOOD SPECIMENOrdering Facility: [facility] Address: [address] [place] [address] Performed By: #### 5 7021-8 ####[facility] [id number] [place] [address] [place] Immature granulocytes (Bld) [#/Vol] 10*3/uL Normal <0.10 [facility] Comment on above: Order Comment: Speci men Type: BLOOD SPECIMENOrdering Facility: [facility] Address: [address] [place] [address] Performed By: #### 5 7021-8 ####[facility] [id number] [place] [address] [place] Immature granulocytes/100 WBC (Bld) 0.4 % Normal [facility] Comment on above: Order Comment: Speci men Type: BLOOD SPECIMENOrdering Facility: [facility] Address: [address] [place] [address] Performed By: #### 5 7021-8 ####[facility] [id number] [place] [address] [place] Lymphocytes (Bld) [#/Vol] 1.00 10*3/uL Normal 1.00-4.00 [facility] Comment on above: Order Comment: Speci men Type: BLOOD SPECIMENOrdering Facility: [facility] Address: [address] [place] [address] Performed By: #### 5 7021-8 ####[facility] [id number] [place] [address] [place] Lymphocytes/100 WBC (Bld) 19.2 % Normal [facility] Comment on above: Order Comment: Speci men Type: BLOOD SPECIMENOrdering Facility: [facility] Address: [address] [place] [address] Performed By: #### 5 7021-8 ####[facility] [id number] [place] [address] [place] MCH (RBC) [Entitic mass] 36.5 pg High 26.0-34.0 [facility] Comment on above: Order Comment: Speci men Type: BLOOD SPECIMENOrdering Facility: [facility] Address: [address] [place] [address] Performed By: #### 5 7021-8 ####[facility] RUBENNCRADHA [id number] [place] [address] [place] MCHC (RBC) [Mass/Vol] 33.0 g/dL Normal 30.5-36.0 [facility] Comment on above: Order Comment: Speci men Type: BLOOD SPECIMENOrdering Facility: [facility] Address: [address] [place] [address] Performed By: #### 5 7021-8 ####[facility]Manuel [id number] [place] [address] [place] MCV (RBC) [Entitic vol] 110.5 fL High 80.0-100.0 [facility] Comment on above: Order Comment: Speci men Type: BLOOD SPECIMENOrdering Facility: [facility] Address: [address] [place] [address] Performed By: #### 5 7021-8 ####[facility] [id number] [place] [address] [place] Monocytes (Bld) [#/Vol] 0.79 10*3/uL Normal <0.87 [facility] Comment on above: Order Comment: Speci men Type: BLOOD SPECIMENOrdering Facility: [facility] Address: [address] [place] [address] Performed By: #### 5 7021-8 ####[facility] [id number] [place] [address] [place] Monocytes/100 WBC (Bld) 15.1 % Normal [facility] Comment on above: Order Comment: Speci men Type: BLOOD SPECIMENOrdering Facility: [facility] Address: [address] [place] [address] Performed By: #### 5 7021-8 ####[facility]ITALLIA [id number] [place] [address] [place] Neutrophils (Bld) [#/Vol] 3.24 10*3/uL Normal 1.45-7.50 [facility] Comment on above: Order Comment: Speci men Type: BLOOD SPECIMENOrdering Facility: [facility] Address: [address] [place] [address] Performed By: #### 5 7021-8 ####[facility] [id number] [place] [address] [place] Neutrophils/100 WBC (Bld) 62.0 % Normal [facility] Comment on above: Order Comment: Speci men Type: BLOOD SPECIMENOrdering Facility: [facility] Address: [address] [place] [address] Performed By: #### 5 7021-8 ####[facility] [id number] [place] [address] [place] Nucleated RBC (Bld) [#/Vol] 10*3/uL Normal <0.01 [facility] Comment on above: Order Comment: Speci men Type: BLOOD SPECIMENOrdering Facility: [facility] Address: [address] [place] [address] Performed By: #### 5 7021-8 ####[facility] [id number] [place] [address] [place] Nucleated RBC/100 WBC (Bld) [Ratio] 0.0 /100 WBC Normal [facility] Comment on above: Order Comment: Speci men Type: BLOOD SPECIMENOrdering Facility: [facility] Address: [address] [place] [address] Performed By: #### 5 7021-8 ####[facility] [id number] [place] [address] [place] Platelet mean volume (Bld) [Entitic vol] 11.5 fL Normal 9.0-12.7 [facility] Comment on above: Order Comment: Speci men Type: BLOOD SPECIMENOrdering Facility: [facility] Address: [address] [place] [address] Performed By: #### 5 7021-8 ####[facility] [id number] [place] [address] [place] Platelets (Bld) [#/Vol] 275 10*3/uL Normal 150-400 [facility] Comment on above: Order Comment: Speci men Type: BLOOD SPECIMENOrdering Facility: [facility] Address: [address] [place] [address] Performed By: #### 5 7021-8 ####[facility] [id number] [place] [address] [place] RBC (Bld) [#/Vol] 2.66 10*6/uL Low 4.20-6.00 [facility] Comment on above: Order Comment: Speci men Type: BLOOD SPECIMENOrdering Facility: [facility] Address: [address] [place] [address] Performed By: #### 5 7021-8 ####[facility] [id number] [place] [address] [place] WBC (Bld) [#/Vol] 5.22 10*3/uL Normal 3.70-11.00 [facility] Comment on above: Order Comment: Speci men Type: BLOOD SPECIMENOrdering Facility: [facility] Address: [address] [place] [address] Performed By: #### 5 7021-8 ####[facility] [id number] [place] [address] [place] CNOVSPon 01-06-2025 CNOVSP Normal [facility] Comprehensive metabolic 2000 panelon 01-06-2025 Albumin [Mass/Vol] 4.1 g/dL Normal 3.9-4.9 [facility] Comment on above: Order Comment: Speci men Type: BLOOD SPECIMENOrdering Facility: [facility] Address: [address] [place] [address] Performed By: #### 2 4323-8 ####[facility] [id number] [place] [address] [place] ALP [Catalytic activity/Vol] 84 U/L Normal 38-113 [facility] Comment on above: Order Comment: Speci men Type: BLOOD SPECIMENOrdering Facility: [facility] Address: [address] [place] [address] Performed By: #### 2 4323-8 ####[facility] [id number] [place] [address] [place] ALT [Catalytic activity/Vol] 17 U/L Normal 10-54 [facility] Comment on above: Order Comment: Speci men Type: BLOOD SPECIMENOrdering Facility: [facility] Address: [address] [place] [address] Performed By: #### 2 4323-8 ####[facility] [id number] [place] [address] [place] Anion gap [Moles/Vol] 11 mmol/L Normal 8-15 [facility] Comment on above: Order Comment: Speci men Type: BLOOD SPECIMENOrdering Facility: [facility] Address: [address] [place] [address] Performed By: #### 2 4323-8 ####[facility] [id number] [place] [address] [place] AST [Catalytic activity/Vol] 24 U/L Normal 14-40 [facility] Comment on above: Order Comment: Speci men Type: BLOOD SPECIMENOrdering Facility: [facility] Address: [address] [place] [address] Performed By: #### 2 4323-8 ####[facility] MILLTOWNCLIA [id number] [place] [address] [place] Bilirubin [Mass/Vol] 1.4 mg/dL High 0.2-1.3 [facility] Comment on above: Order Comment: Speci men Type: BLOOD SPECIMENOrdering Facility: [facility] Address: [address] [place] [address] Performed By: #### 2 4323-8 ####[facility] MILLTOWNCLIA [id number] [place] [address] [place] Calcium [Mass/Vol] 9.1 mg/dL Normal 8.5-10.2 [facility] Comment on above: Order Comment: Speci men Type: BLOOD SPECIMENOrdering Facility: [facility] Address: [address] [place] [address] Performed By: #### 2 4323-8 ####[facility]ITALWNCLIA [id number] [place] [address] [place] Chloride [Moles/Vol] 103 mmol/L Normal 98-107 [facility] Comment on above: Order Comment: Speci men Type: BLOOD SPECIMENOrdering Facility: [facility] Address: [address] [place] [address] Performed By: #### 2 4323-8 ####[facility] MILLTOWNCLIA [id number] [place] [address] [place] CO2 [Moles/Vol] 28 mmol/L Normal 22-30 [facility] Comment on above: Order Comment: Speci men Type: BLOOD SPECIMENOrdering Facility: [facility] Address: [address] [place], [place] [address] Performed By: #### 2 4323-8 ####[facility] MILLWNCLIA [id number] [place] [id number] [place] Creatinine [Mass/Vol] 0.93 mg/dL Normal 0.73-1.22 [facility] Comment on above: Order Comment: Elfego gilbert Type: BLOOD SPECIMENOrdering Facility: [facility] Address: [address] [place] [address] Performed By: #### 2 4323-8 ####[facility] [id number] [place] [address] [place] Creatinine and Glomerular filtration rate.predicted panel (S/P/Bld) 78 mL/min/1.73m??? Normal >=60 [facility] Comment on above: Order Comment: Elfego gilbert Type: BLOOD SPECIMENOrdering Facility: [facility] Address: [address] [place] [address] Result Comment: Concepción mated Glomerular Filtration Rate (eGFR) is calculated using the 2020 CKD-EPI creatinine equation. This equation utilizes serum creatinine, sex, and age as parameters. The creatinine assay has traceable calibration to isotope dilution-mass spectrometry. Refer to KDIGO guidelines for clinical interpretation. In patients with unstable renal function, e.g. those with acute kidney injury, the eGFR may not accurately reflect actual GFR. Performed By: #### 2 4323-8 ####[facility] [id number] [place] [address] [place] Glucose [Mass/Vol] 78 mg/dL Normal 74-99 [facility] Comment on above: Order Comment: Elfego gilbert Type: BLOOD SPECIMENOrdering Facility: [facility] Address: [address] [place] [address] Result Comment: The [place] Diabetes Association (ADA) provides guidance for cutoff values for fasting glucose and random glucose. The ADA defines fasting as no caloric intake for at least 8 hours. Fasting plasma glucose results between 100 to 125 mg/dL indicate increased risk for diabetes (prediabetes).Fasting plasma glucose results greater than or equal to 126 mg/dL meet the criteria for diagnosis of diabetes. In the absence of unequivocal hyperglycemia, results should be confirmed by repeat testing. In a patient with classic symptoms of hyperglycemia or hyperglycemic crisis, random plasma glucose results greater than or equal to 200 mg/dL meet the criteria for diagnosis of diabetes.Reference: Standards of Medical Care in Diabetes 2016, [place] Diabetes Association. Diabetes Care. 2016.39(Suppl 1). Performed By: #### 2 4323-8 ####[facility] [id number] [place] [address] [place] Potassium [Moles/Vol] 4.4 mmol/L Normal 3.7-5.1 [facility] Comment on above: Order Comment: Speci men Type: BLOOD SPECIMENOrdering Facility: [facility] Address: [address] [place] [address] Performed By: #### 2 4323-8 ####[facility] [id number] [place] [address] [place] Protein [Mass/Vol] 6.7 g/dL Normal 6.3-8.0 [facility] Comment on above: Order Comment: Speci men Type: BLOOD SPECIMENOrdering Facility: [facility] Address: [address] [place] [address] Performed By: #### 2 4323-8 ####[facility] [id number] [place] [address] [place] Sodium [Moles/Vol] 142 mmol/L Normal 136-144 [facility] Comment on above: Order Comment: Speci men Type: BLOOD SPECIMENOrdering Facility: [facility] Address: [address] [place] [address] Performed By: #### 2 4323-8 ####[facility] [id number] [place] [address] [place] Urea nitrogen [Mass/Vol] 29 mg/dL High 9-24 [facility] Comment on above: Order Comment: Speci men Type: BLOOD SPECIMENOrdering Facility: [facility] Address: [address] [place] [address] Performed By: #### 2 4323-8 ####[facility] [id number] [place] [address] [place] EPO SerPl-aCncon 01-06-2025 Erythropoietin (EPO) Qn 136.9 mIU/mL High 2.6-18.5 [facility] Comment on above: Order Comment: Speci men Type: BLOOD SPECIMENOrdering Facility: [facility] Address: [address] [place] [address] Performed By: #### 1 5061-5 ####[facility] LABCLIA [id number] [place] [address] [place] Ferritin SerPl-mCncon 2024 Ferritin [Mass/Vol] 551.0 ng/mL Normal 30.3-565.7 [facility] Comment on above: Order Comment: Speci men Type: BLOOD SPECIMENOrdering Facility: [facility] Address: [address] [place] [address] Performed By: #### 2 284-8, 2132-9, 22892-5, 2276-4 ####[facility] LABORATORYCLIA [id number] [place] [address] [place] Folate SerPl-mCncon 01-06-20 25 Folate [Mass/Vol] ng/mL Normal >4.7 [facility] Comment on above: Order Comment: Speci men Type: BLOOD SPECIMENOrdering Facility: [facility] Address: [address] [place] [address] Result Comment: A re sult of > 20 ng/mL is not necessarily indicative of a pathologic or treatable condition: it reflects a limitation of the test methodology.Assay reference range: 4.8 to 24.2 ng/mL. Suitable for detection of folate deficiency.Reference:Folate III (Folate III) [package insert V 1.0 Haitian]. [facility], [place], [place]: September 2015. Performed By: #### 2 284-8, 2132-9, 80711-6, 6-4 ####[facility] LABORATORYCLIA [id number] [place] [address] [place] Iron and Iron binding capaci ty panelon 01-06-2025 Iron [Mass/Vol] 155 ug/dL Normal 41-186 [facility] Comment on above: Order Comment: Speci men Type: BLOOD SPECIMENOrdering Facility: [facility] Address: [address] [place] [address] Performed By: #### 2 284-8, 2132-9, 53117-8, 2276-4 ####[facility]ITAL[facility] [id number] [place] [address] [place] Iron binding capacity [Mass/Vol] 172 ug/dL Low 232-386 [facility] Comment on above: Order Comment: Speci men Type: BLOOD SPECIMENOrdering Facility: [facility] Address: [address] [place] [address] Performed By: #### 2 284-8, 2132-9, 36465-9, 2276-4 ####[facility]OSPITALIA [id number] [place] [id number] [place] Iron saturation [Mass fraction] 90.1 % High 15.0-57.0 [facility] Comment on above: Order Comment: Speci men Type: BLOOD SPECIMENOrdering Facility: [facility] Address: [address] [place] [address] Performed By: #### 2 284-8, 2132-9, 32068-8, 2276-4 ####[facility]OSPITALIA [id number] [place] [address] [place] Methylmalonate SerPl-sCncon 01-06-2025 Methylmalonate [Moles/Vol] 0.21 umol/L Normal <=0.40 [facility] Comment on above: Order Comment: Speci men Type: BLOOD SPECIMENOrdering Facility: [facility] Address: [address] [place] [address] Result Comment: This test was developed, and its performance characteristics determined by the [facility] Department of Pathology and Laboratory Medicine. It has not been cleared or approved by the FDA. The [facility] Department of Pathology and Laboratory Medicine is regulated under CLIA as qualified to perform high-complexity testing. This test is used for clinical purposes. It should not be regarded as investigational or for research. Performed By: #### 1 3964-2 ####[facility] LABCLIA [id number] [place] [id number] [place] Vit B12 SerPl-mCncon 025 Cobalamin (Vitamin B12) [Mass/Vol] 768 pg/mL Normal 232-1245 [facility] Comment on above: Order Comment: Speci men Type: BLOOD SPECIMENOrdering Facility: [facility] Address: [address] [place] [address] Performed By: #### 2 284-8, 2132-9, 13221-3, 2276-4 ####[facility] LABORATORYCLIA [id number] [address] OF [facility] CNOVon 12-30-2024 [facility] SRINI LUIS ([id number]) 1935 M Date Time Provider Department 12/30/24 2:15 PM REM DEVICE [facility] During your visit today, we recorded the following information about you: Israel Minor MD 01/08/2025 10:00 PM Signed Dual Pacer Remote Check Date: December 30, 2024 Time: 2:51 PM Devices: Implants Ra Lead Biotronik-09/17/2022 - Implanted Heart Model/Cat number: ADAIR S [id number] Serial number: [id number] Indigo Mixer: WeVorceRONISidense Lot number: LEFT AXILLARY VEIN Size: Right Atrial Pacing Lead Rv Lead Biotronik-09/17/2022 - Implanted Heart Model/Cat number: ADAIR S 60 [id number] Serial number: [id number] Indigo Mixer: EnerTrac Lot number: LEFT CEPHALIC VEIN Size: Right Ventricular Pacing Lead Pacemaker Dual Pacer Biotronik-09/17/2022 - Implanted (Left) Chest Wall Model/Cat number: GUY [id number] Serial number: [id number] Indigo Mixer: EnerTrac Lot number: INITIAL DUAL PACER IMPLANT. 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; LVEF 68%; 4V Cabg 07/22/2021; TIMMY Ligation, Post Cabg Afib; Xarelto; Last Interrogation Date: 09-27-2024 Estimated Remaining Longevity: 85% of the battery left until [place] Interrogation Performed by: Stephany Abraham LPN Programming Parameters Mode: VVI Lower Rate: 60 Upper Track: N/a Upper Sensor: N/a Paced AV Delay: N/a Sensed AV Delay: N/a Atrial Refractory: N/a Mode Switch: N/a Atrial: off Right Ventricle: Threshold: N/a Programmed amp/PW: 1.0 V @ 0.75 msec R wave: 10.7 mV Sensitivity: auto Impedance: 410 ohms RV pacin% Episodes: Atrial Fib count: Chronic AFib Atrial burden: 100% Mode Switch episodes: Chronic A-fib Ventricular Fibrillation count: 0 Fast Ventricular Tachycardia count: 0 Slow Ventricular Tachycardia: 0 NSVT: 0 Summary: Normal device function. Normal pacing and sensing threshold. Battery: 85% of the battery left until [place]. Histogram: ok. Atrial episodes: Chronic A-fib. Ventricular episodes: none. Follow up: 3 month device check and provider appointment. View External Cardiology - [employer] Strips [ID [id number]] Allergies As of Date: 12/30/2024 Noted Allergy Reaction SIMVASTATIN 08/17/2012 14 - Other: See Comments Comments: Elevated CK Date Reviewed: 12/23/2024 Reviewed by: Esha Jackson LPN - Fully Assessed Reason for Visit: Remote Pacemaker Follow Up [1925] Primary Visit Diagnosis:Encounter for care of pacemaker [Z45.018] Prescriptions as of 01/08/2025 - atorvastatin (LIPITOR) 20 mg tablet Take 1 tablet by mouth once daily. - rivaroxaban (XARELTO) 20 mg tablet Take 1 tablet by mouth daily with dinner. Resume Sep 20 2022 - levothyroxine (SYNTHROID) 100 mcg tablet Take 1 tablet by mouth once daily. Take on empty stomach - cholecalciferol (VITAMIN D3) 1,000 unit tab tablet Take by mouth once daily. - folic acid 1 mg tablet Take 1 tablet by mouth once daily. - furosemide (LASIX) 40 mg tablet Take 0.5 tablets by mouth two times a day. AM and noon. - ADULT LOW DOSE ASPIRIN ORAL Take 81 mg by mouth once daily. - nitroglycerin sublingual (NITROQUICK) 0.4 mg SL tablet nitroglycerin 0.4 mg sublingual tablet - cyanocobalamin (VITAMIN B-12) 1,000 mcg tab Take 1,000 mcg by mouth once daily. - polyethylene glycol 3350 (MIRALAX, GLYCOLAX) 17 gram packet Take 17 g by mouth once daily as needed for constipation. Dissolve dose in 4 - 8 ounces of liquid and take as directed. - MULTIVITAMIN TABLET Take 1 tablet by mouth once daily. 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] 09/21/2003 06/16/2023 Follow-up examination following surgery [V67.0] 10/31/2003 01/02/2015 Mixed hyperlipidemia [E78.2] 07/04/2005 Hypothyroidism [E03.9] 07/04/2005 Special screening for malignant neoplasms, colo*08/11/2005 01/02/2015 Generalized osteoarthrosis [M15.9] 06/05/2006 01/22/2024 ACTINIC DAMAGE///SOLAR SKIN DAMAGE NOS [L57.8] 04/07/2008 01/02/2015 Dermatitis due to cosmetics [L25.0] 04/07/2008 01/02/2015 ACTINIC DAMAGE///CHR SOLAR SKIN DAMAGE NOS [L57*04/07/2008 01/02/2015 Other seborrheic keratosis [L82.1] 04/07/2008 01/02/2015 SOLAR LENTIGINES///DYSCHROMIA OTHER [L81.9] 04/07/2008 01/02/2015 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 Normal [facility] CBC W Auto Differential pane l (Bld)on 12-23-2024 Basophils (Bld) [#/Vol] 0.06 10*3/uL Normal <0.11 [facility] Comment on above: Order Comment: Speci men Type: BLOOD SPECIMENOrdering Facility: [facility] Address: [address] [place] [address] Performed By: #### 5 7021-8 ####[facility] HOSPITALLIA [id number] [place] [address] [place] Basophils/100 WBC (Bld) 1.2 % Normal [facility] Comment on above: Order Comment: Speci men Type: BLOOD SPECIMENOrdering Facility: [facility] Address: [address] [place] [address] Performed By: #### 5 7021-8 ####[facility] HOSPITALWNCLIA [id number] [place] [address] [place] Differential cell count method Nom (Bld) Auto Normal [facility] Comment on above: Order Comment: Speci men Type: BLOOD SPECIMENOrdering Facility: [facility] Address: [address] [place] [address] Performed By: #### 5 7021-8 ####[facility] PETERSBURGNCLIA [id number] [place] [address] [place] Eosinophils (Bld) [#/Vol] 0.18 10*3/uL Normal <0.46 [facility] Comment on above: Order Comment: Speci men Type: BLOOD SPECIMENOrdering Facility: [facility] Address: [address] [place] [address] Performed By: #### 5 7021-8 ####[facility] [id number] [place] [address] [place] Eosinophils/100 WBC (Bld) 3.7 % Normal [facility] Comment on above: Order Comment: Speci men Type: BLOOD SPECIMENOrdering Facility: [facility] Address: [address] [place] [address] Performed By: #### 5 7021-8 ####[facility] PETERSBURGNCLI [id number] [place] [address] [place] Erythrocyte distribution width (RBC) [Ratio] 20.5 % High 11.5-15.0 [facility] Comment on above: Order Comment: Speci men Type: BLOOD SPECIMENOrdering Facility: [facility] Address: [address] [place] [address] Performed By: #### 5 7021-8 ####[facility] PET[facility]BURGNCLIA [id number] [place] [address] [place] Hematocrit (Bld) [Volume fraction] 28.7 % Low 39.0-51.0 [facility] Comment on above: Order Comment: Speci men Type: BLOOD SPECIMENOrdering Facility: [facility] Address: [address] [place] [address] Performed By: #### 5 7021-8 ####[facility]GNCLIA [id number] [place] [address] [place] Hemoglobin (Bld) [Mass/Vol] 9.7 g/dL Low 13.0-17.0 [facility] Comment on above: Order Comment: Speci men Type: BLOOD SPECIMENOrdering Facility: [facility] Address: [address] [place] [address] Performed By: #### 5 7021-8 ####[facility] KENNETHA [id number] [place] [address] [place] Immature granulocytes (Bld) [#/Vol] 10*3/uL Normal <0.10 [facility] Comment on above: Order Comment: Speci men Type: BLOOD SPECIMENOrdering Facility: [facility] Address: [address] [place] [address] Performed By: #### 5 7021-8 ####[facility] PETERSBURGKOSTAA [id number] [place] [address] [place] Immature granulocytes/100 WBC (Bld) 0.4 % Normal [facility] Comment on above: Order Comment: Speci men Type: BLOOD SPECIMENOrdering Facility: [facility] Address: [address] [place] [address] Performed By: #### 5 7021-8 ####[facility] JONHCOMMUNITY MEMORIAL HOSPITALA [id number] [place] [address] [place] Lymphocytes (Bld) [#/Vol] 1.06 10*3/uL Normal 1.00-4.00 [facility] Comment on above: Order Comment: Speci men Type: BLOOD SPECIMENOrdering Facility: [facility] Address: [address] [place] [address] Performed By: #### 5 7021-8 ####[facility] HOSPITALLIA [id number] [place] [address] [place] Lymphocytes/100 WBC (Bld) 21.8 % Normal [facility] Comment on above: Order Comment: Speci men Type: BLOOD SPECIMENOrdering Facility: [facility] Address: [address] [place] [address] Performed By: #### 5 7021-8 ####[facility]GNCLIA [id number] [place] [address] [place] MCH (RBC) [Entitic mass] 36.6 pg High 26.0-34.0 [facility] Comment on above: Order Comment: Speci men Type: BLOOD SPECIMENOrdering Facility: [facility] Address: [address] [place] [address] Performed By: #### 5 7021-8 ####[facility] [id number] [place] [address] [place] MCHC (RBC) [Mass/Vol] 33.8 g/dL Normal 30.5-36.0 [facility] Comment on above: Order Comment: Speci men Type: BLOOD SPECIMENOrdering Facility: [facility] Address: [address] [place] [address] Performed By: #### 5 7021-8 ####[facility] [id number] [place] [address] [place] MCV (RBC) [Entitic vol] 108.3 fL High 80.0-100.0 [facility] Comment on above: Order Comment: Speci men Type: BLOOD SPECIMENOrdering Facility: [facility] Address: [address] [place] [address] Performed By: #### 5 7021-8 ####[facility] [id number] [place] Monocytes (Bld) [#/Vol] 0.69 10*3/uL Normal <0.87 [facility] Comment on above: Order Comment: Speci men Type: BLOOD SPECIMENOrdering Facility: [facility] Address: [address] [place] [address] Performed By: #### 5 7021-8 ####[facility] [id number] [place] [address] [place] Monocytes/100 WBC (Bld) 14.2 % Normal [facility] Comment on above: Order Comment: Speci men Type: BLOOD SPECIMENOrdering Facility: [facility] Address: [address] [place] [address] Performed By: #### 5 7021-8 ####[facility]GNCLIA [id number] [place] [address] [place] Neutrophils (Bld) [#/Vol] 2.86 10*3/uL Normal 1.45-7.50 [facility] Comment on above: Order Comment: Speci men Type: BLOOD SPECIMENOrdering Facility: [facility] Address: [address] [place] [address] Performed By: #### 5 7021-8 ####[facility]A [id number] [place] [address] [place] Neutrophils/100 WBC (Bld) 58.7 % Normal [facility] Comment on above: Order Comment: Speci men Type: BLOOD SPECIMENOrdering Facility: [facility] Address: [address] [place] [address] Performed By: #### 5 7021-8 ####[facility]A [id number] [place] [address] [place] Nucleated RBC (Bld) [#/Vol] 10*3/uL Normal <0.01 [facility] Comment on above: Order Comment: Speci men Type: BLOOD SPECIMENOrdering Facility: [facility] Address: [address] [place] [address] Performed By: #### 5 7021-8 ####[facility] HOSPITALLIA [id number] [place] [address] [place] Nucleated RBC/100 WBC (Bld) [Ratio] 0.0 /100 WBC Normal [facility] Comment on above: Order Comment: Speci men Type: BLOOD SPECIMENOrdering Facility: [facility] Address: [address] [place] [address] Performed By: #### 5 7021-8 ####[facility] HASEEB [id number] [place] [address] [place] Platelet mean volume (Bld) [Entitic vol] 10.9 fL Normal 9.0-12.7 [facility] Comment on above: Order Comment: Speci men Type: BLOOD SPECIMENOrdering Facility: [facility] Address: [address] [place] [address] Performed By: #### 5 7021-8 ####[facility] PETERSBURGMALENA [id number] [place] [address] [place] Platelets (Bld) [#/Vol] 238 10*3/uL Normal 150-400 [facility] Comment on above: Order Comment: Speci men Type: BLOOD SPECIMENOrdering Facility: [facility] Address: [address] [place] [address] Performed By: #### 5 7021-8 ####[facility] PETERSBURGNCCONSTANCEA [id number] [place] [address] [place] RBC (Bld) [#/Vol] 2.65 10*6/uL Low 4.20-6.00 [facility] Comment on above: Order Comment: Speci men Type: BLOOD SPECIMENOrdering Facility: [facility] Address: [address] [place] [address] Performed By: #### 5 7021-8 ####[facility]GNCLIA [id number] [place] [address] [place] WBC (Bld) [#/Vol] 4.87 10*3/uL Normal 3.70-11.00 [facility] Comment on above: Order Comment: Speci men Type: BLOOD SPECIMENOrdering Facility: [facility] Address: [address] [place] [address] Performed By: #### 5 7021-8 ####[facility] MILLMATLIA [id number] [place] [address] [place] CBC W Auto Differential pane l (Bld)on 12-09-2024 Basophils (Bld) [#/Vol] 0.05 10*3/uL Normal <0.11 [facility] Comment on above: Order Comment: Speci men Type: BLOOD SPECIMENOrdering Facility: [facility] Address: [address] [place] [address] Performed By: #### 5 7021-8 ####[facility] HOSPITALWROBERTLIA [id number] [place] [address] [place] Basophils/100 WBC (Bld) 0.9 % Normal [facility] Comment on above: Order Comment: Speci men Type: BLOOD SPECIMENOrdering Facility: [facility] Address: [address] [place] [address] Performed By: #### 5 7021-8 ####[facility] HOSPITALJULIOA [id number] [place] Differential cell count method Nom (Bld) Auto Normal [facility] Comment on above: Order Comment: Speci men Type: BLOOD SPECIMENOrdering Facility: [facility] Address: [address] [place] [address] Performed By: #### 5 7021-8 ####[facility] MILLTOWNCLIA [id number] [place] [address] [place] Eosinophils (Bld) [#/Vol] 0.13 10*3/uL Normal <0.46 [facility] Comment on above: Order Comment: Speci men Type: BLOOD SPECIMENOrdering Facility: [facility] Address: [address] [place] [address] Performed By: #### 5 7021-8 ####[facility] [id number] [place] [address] [place] Eosinophils/100 WBC (Bld) 2.3 % Normal [facility] Comment on above: Order Comment: Speci men Type: BLOOD SPECIMENOrdering Facility: [facility] Address: [address] [place] [address] Performed By: #### 5 7021-8 ####[facility] [id number] [place] [address] [place] Erythrocyte distribution width (RBC) [Ratio] 20.4 % High 11.5-15.0 [facility] Comment on above: Order Comment: Speci men Type: BLOOD SPECIMENOrdering Facility: [facility] Address: [address] [place] [address] Performed By: #### 5 7021-8 ####[facility] [id number] [place] [address] [place] Hematocrit (Bld) [Volume fraction] 29.1 % Low 39.0-51.0 [facility] Comment on above: Order Comment: Speci men Type: BLOOD SPECIMENOrdering Facility: [facility] Address: [address] [place] [address] Performed By: #### 5 7021-8 ####[facility] [id number] [place] [address] [place] Hemoglobin (Bld) [Mass/Vol] 9.6 g/dL Low 13.0-17.0 [facility] Comment on above: Order Comment: Speci men Type: BLOOD SPECIMENOrdering Facility: [facility] Address: [address] [place] [address] Performed By: #### 5 7021-8 ####[facility]BURGNCLI [id number] [place] [address] [place] Immature granulocytes (Bld) [#/Vol] 10*3/uL Normal <0.10 [facility] Comment on above: Order Comment: Speci men Type: BLOOD SPECIMENOrdering Facility: [facility] Address: [address] [place] [address] Performed By: #### 5 7021-8 ####[facility] [id number] [place] [address] [place] Immature granulocytes/100 WBC (Bld) 0.3 % Normal [facility] Comment on above: Order Comment: Speci men Type: BLOOD SPECIMENOrdering Facility: [facility] Address: [address] [place] [address] Performed By: #### 5 7021-8 ####[facility] [id number] [place] [address] [place] Lymphocytes (Bld) [#/Vol] 1.12 10*3/uL Normal 1.00-4.00 [facility] Comment on above: Order Comment: Speci men Type: BLOOD SPECIMENOrdering Facility: [facility] Address: [address] [place] [address] Performed By: #### 5 7021-8 ####[facility] [id number] [place] [address] [place] Lymphocytes/100 WBC (Bld) 19.5 % Normal [facility] Comment on above: Order Comment: Speci men Type: BLOOD SPECIMENOrdering Facility: [facility] Address: [address] [place] [address] Performed By: #### 5 7021-8 ####[facility] [id number] [place] [address] [place] MCH (RBC) [Entitic mass] 36.6 pg High 26.0-34.0 [facility] Comment on above: Order Comment: Speci men Type: BLOOD SPECIMENOrdering Facility: [facility] Address: [address] [place] [address] Performed By: #### 5 7021-8 ####[facility]GNCLIA [id number] [place] [address] [place] MCHC (RBC) [Mass/Vol] 33.0 g/dL Normal 30.5-36.0 [facility] Comment on above: Order Comment: Speci men Type: BLOOD SPECIMENOrdering Facility: [facility] Address: [address] [place] [address] Performed By: #### 5 7021-8 ####[facility] [id number] [place] [address] [place] MCV (RBC) [Entitic vol] 111.1 fL High 80.0-100.0 [facility] Comment on above: Order Comment: Speci men Type: BLOOD SPECIMENOrdering Facility: [facility] Address: [address] [place] [address] Performed By: #### 5 7021-8 ####[facility] [id number] [place] [address] [place] Monocytes (Bld) [#/Vol] 0.82 10*3/uL Normal <0.87 [facility] Comment on above: Order Comment: Speci men Type: BLOOD SPECIMENOrdering Facility: [facility] Address: [address] [place] [address] Performed By: #### 5 7021-8 ####[facility] HOSPITALLIA [id number] [place] [address] [place] Monocytes/100 WBC (Bld) 14.3 % Normal [facility] Comment on above: Order Comment: Speci men Type: BLOOD SPECIMENOrdering Facility: [facility] Address: [address] [place] [address] Performed By: #### 5 7021-8 ####[facility] [id number] [place] [address] [place] Neutrophils (Bld) [#/Vol] 3.61 10*3/uL Normal 1.45-7.50 [facility] Comment on above: Order Comment: Speci men Type: BLOOD SPECIMENOrdering Facility: [facility] Address: [address] [place] [address] Performed By: #### 5 7021-8 ####[facility] HOSPITALWINLIA [id number] [place] [address] [place] Neutrophils/100 WBC (Bld) 62.7 % Normal [facility] Comment on above: Order Comment: Speci men Type: BLOOD SPECIMENOrdering Facility: [facility] Address: [address] [place] [address] Performed By: #### 5 7021-8 ####[facility]GMAL[facility] [id number] [place] [address] [place] Nucleated RBC (Bld) [#/Vol] 0.02 10*3/uL High <0.01 [facility] Comment on above: Order Comment: Speci men Type: BLOOD SPECIMENOrdering Facility: [facility] Address: [address] [place] [address] Performed By: #### 5 7021-8 ####[facility]AL[facility] [id number] [place] [address] [place] Nucleated RBC/100 WBC (Bld) [Ratio] 0.3 /100 WBC Normal [facility] Comment on above: Order Comment: Speci men Type: BLOOD SPECIMENOrdering Facility: [facility] Address: [address] [place] [address] Performed By: #### 5 7021-8 ####[facility]GNCLIA [id number] [place] [address] [place] Platelet mean volume (Bld) [Entitic vol] 10.7 fL Normal 9.0-12.7 [facility] Comment on above: Order Comment: Speci men Type: BLOOD SPECIMENOrdering Facility: [facility] Address: [address] [place] [address] Performed By: #### 5 7021-8 ####[facility]BURGNCCONSTANCEA [id number] [place] [address] [place] Platelets (Bld) [#/Vol] 261 10*3/uL Normal 150-400 [facility] Comment on above: Order Comment: Speci men Type: BLOOD SPECIMENOrdering Facility: [facility] Address: [address] [place] [address] Performed By: #### 5 7021-8 ####[facility]GNCA [id number] [place] [address] [place] RBC (Bld) [#/Vol] 2.62 10*6/uL Low 4.20-6.00 [facility] Comment on above: Order Comment: Speci men Type: BLOOD SPECIMENOrdering Facility: [facility] Address: [address] [place] [address] Performed By: #### 5 7021-8 ####[facility]GNCA [id number] [place] [address] [place] WBC (Bld) [#/Vol] 5.75 10*3/uL Normal 3.70-11.00 [facility] Comment on above: Order Comment: Speci men Type: BLOOD SPECIMENOrdering Facility: [facility] Address: [address] [place] [address] Performed By: #### 5 7021-8 ####[facility]GNCL[facility] [id number] [place] [address] [place] CNPNon 11-25-2024 CNPN Normal [facility] CBC W Auto Differential pane l (Bld)on 11-24-2024 Basophils (Bld) [#/Vol] 0.06 10*3/uL Normal <0.11 [facility] Comment on above: Order Comment: Speci men Type: BLOOD SPECIMENOrdering Facility: [facility] Address: [address] [place] [address] Performed By: #### 5 7021-8 ####[facility] HOSPITALLIA [id number] [place] [address] [place] Basophils/100 WBC (Bld) 0.9 % Normal [facility] Comment on above: Order Comment: Speci men Type: BLOOD SPECIMENOrdering Facility: [facility] Address: [address] [place] [address] Performed By: #### 5 7021-8 ####[facility] [id number] [place] [address] [place] Differential cell count method Nom (Bld) Auto Normal [facility] Comment on above: Order Comment: Speci men Type: BLOOD SPECIMENOrdering Facility: [facility] Address: [address] [place] [address] Performed By: #### 5 7021-8 ####[facility] [id number] [place] [address] [place] Eosinophils (Bld) [#/Vol] 0.10 10*3/uL Normal <0.46 [facility] Comment on above: Order Comment: Speci men Type: BLOOD SPECIMENOrdering Facility: [facility] Address: [address] [place] [address] Performed By: #### 5 7021-8 ####[facility] [id number] [place] [address] [place] Eosinophils/100 WBC (Bld) 1.5 % Normal [facility] Comment on above: Order Comment: Speci men Type: BLOOD SPECIMENOrdering Facility: [facility] Address: [address] [place] [address] Performed By: #### 5 7021-8 ####[facility]GNCLIA [id number] [place] [address] [place] Erythrocyte distribution width (RBC) [Ratio] 19.7 % High 11.5-15.0 [facility] Comment on above: Order Comment: Speci men Type: BLOOD SPECIMENOrdering Facility: [facility] Address: [address] [place] [address] Performed By: #### 5 7021-8 ####[facility] [id number] [place] [address] [place] Hematocrit (Bld) [Volume fraction] 26.5 % Low 39.0-51.0 [facility] Comment on above: Order Comment: Speci men Type: BLOOD SPECIMENOrdering Facility: [facility] Address: [address] [place] [address] Performed By: #### 5 7021-8 ####[facility] HOSPITALLI [id number] [place] [address] [place] Hemoglobin (Bld) [Mass/Vol] 8.8 g/dL Low 13.0-17.0 [facility] Comment on above: Order Comment: Speci men Type: BLOOD SPECIMENOrdering Facility: [facility] Address: [address] [place] [address] Performed By: #### 5 7021-8 ####[facility] [id number] [place] [address] [place] Immature granulocytes (Bld) [#/Vol] 0.03 10*3/uL Normal <0.10 [facility] Comment on above: Order Comment: Speci men Type: BLOOD SPECIMENOrdering Facility: [facility] Address: [address] [place] [address] Performed By: #### 5 7021-8 ####[facility] [id number] [place] [address] [place] Immature granulocytes/100 WBC (Bld) 0.5 % Normal [facility] Comment on above: Order Comment: Speci men Type: BLOOD SPECIMENOrdering Facility: [facility] Address: [address] [place] [address] Performed By: #### 5 7021-8 ####[facility] [id number] [place] [address] [place] Lymphocytes (Bld) [#/Vol] 1.04 10*3/uL Normal 1.00-4.00 [facility] Comment on above: Order Comment: Speci men Type: BLOOD SPECIMENOrdering Facility: [facility] Address: [address] [place] [address] Performed By: #### 5 7021-8 ####[facility] [id number] [place] [address] [place] Lymphocytes/100 WBC (Bld) 16.0 % Normal [facility] Comment on above: Order Comment: Speci men Type: BLOOD SPECIMENOrdering Facility: [facility] Address: [address] [place] [address] Performed By: #### 5 7021-8 ####[facility] [facility] [id number] [place] [address] [place] MCH (RBC) [Entitic mass] 37.9 pg High 26.0-34.0 [facility] Comment on above: Order Comment: Speci men Type: BLOOD SPECIMENOrdering Facility: [facility] Address: [address] [place] [address] Performed By: #### 5 7021-8 ####[facility] [id number] [place] [address] [place] MCHC (RBC) [Mass/Vol] 33.2 g/dL Normal 30.5-36.0 [facility] Comment on above: Order Comment: Speci men Type: BLOOD SPECIMENOrdering Facility: [facility] Address: [address] [place] [address] Performed By: #### 5 7021-8 ####[facility] [id number] [place] [address] [place] MCV (RBC) [Entitic vol] 114.2 fL High 80.0-100.0 [facility] Comment on above: Order Comment: Speci men Type: BLOOD SPECIMENOrdering Facility: [facility] Address: [address] [place] [address] Performed By: #### 5 7021-8 ####[facility] [id number] [place] [address] [place] Monocytes (Bld) [#/Vol] 0.79 10*3/uL Normal <0.87 [facility] Comment on above: Order Comment: Speci men Type: BLOOD SPECIMENOrdering Facility: [facility] Address: [address] [place] [address] Performed By: #### 5 7021-8 ####[facility] [id number] [place] [address] [place] Monocytes/100 WBC (Bld) 12.2 % Normal [facility] Comment on above: Order Comment: Speci men Type: BLOOD SPECIMENOrdering Facility: [facility] Address: [address] [place] [address] Performed By: #### 5 7021-8 ####[facility] [id number] [place] [address] [place] Neutrophils (Bld) [#/Vol] 4.48 10*3/uL Normal 1.45-7.50 [facility] Comment on above: Order Comment: Speci men Type: BLOOD SPECIMENOrdering Facility: [facility] Address: [address] [place] [address] Performed By: #### 5 7021-8 ####[facility] MILLWNCLIA [id number] [place] [address] [place] Neutrophils/100 WBC (Bld) 68.9 % Normal [facility] Comment on above: Order Comment: Speci men Type: BLOOD SPECIMENOrdering Facility: [facility] Address: [address] [place] [address] Performed By: #### 5 7021-8 ####[facility] [id number] [place] [address] [place] Nucleated RBC (Bld) [#/Vol] 0.05 10*3/uL High <0.01 [facility] Comment on above: Order Comment: Speci men Type: BLOOD SPECIMENOrdering Facility: [facility] Address: [address] [place] [address] Performed By: #### 5 7021-8 ####[facility] [id number] [place] [address] [place] Nucleated RBC/100 WBC (Bld) [Ratio] 0.8 /100 WBC Normal [facility] Comment on above: Order Comment: Speci men Type: BLOOD SPECIMENOrdering Facility: [facility] Address: [address] [place] [address] Performed By: #### 5 7021-8 ####[facility] [id number] [place] [address] [place] Platelet mean volume (Bld) [Entitic vol] 10.2 fL Normal 9.0-12.7 [facility] Comment on above: Order Comment: Speci men Type: BLOOD SPECIMENOrdering Facility: [facility] Address: [address] [place] [address] Performed By: #### 5 7021-8 ####[facility] [id number] [place] [address] [place] Platelets (Bld) [#/Vol] 254 10*3/uL Normal 150-400 [facility] Comment on above: Order Comment: Speci men Type: BLOOD SPECIMENOrdering Facility: [facility] Address: [address] [place] [address] Performed By: #### 5 7021-8 ####[facility] MEENAKSHIJEAN [id number] [place] [address] [place] RBC (Bld) [#/Vol] 2.32 10*6/uL Low 4.20-6.00 [facility] Comment on above: Order Comment: Speci men Type: BLOOD SPECIMENOrdering Facility: [facility] Address: [address] [place] [address] Performed By: #### 5 7021-8 ####[facility] JONHJUAN JOSE [id number] [place] [address] [place] WBC (Bld) [#/Vol] 6.50 10*3/uL Normal 3.70-11.00 [facility] Comment on above: Order Comment: Speci men Type: BLOOD SPECIMENOrdering Facility: [facility] Address: [address] [place] [address] Performed By: #### 5 7021-8 ####[facility] JONHJEAN [id number] [place] [address] [place] CNPNon 11-16-2024 CNPN Normal [facility] CBC W Auto Differential pane l (Bld)on 11-15-2024 Basophils (Bld) [#/Vol] 0.05 10*3/uL Normal <0.11 [facility] Comment on above: Order Comment: Speci men Type: BLOOD SPECIMENOrdering Facility: [facility] Address: [address] [place] [address] Performed By: #### 5 7021-8 ####[facility] [id number] [place] [address] [place] Basophils/100 WBC (Bld) 1.0 % Normal [facility] Comment on above: Order Comment: Speci men Type: BLOOD SPECIMENOrdering Facility: [facility] Address: [address] [place] [address] Performed By: #### 5 7021-8 ####[facility] [id number] [place] [address] [place] Differential cell count method Nom (Bld) Auto Normal [facility] Comment on above: Order Comment: Speci men Type: BLOOD SPECIMENOrdering Facility: [facility] Address: [address] [place] [address] Performed By: #### 5 7021-8 ####[facility] [id number] [place] [address] [place] Eosinophils (Bld) [#/Vol] 0.10 10*3/uL Normal <0.46 [facility] Comment on above: Order Comment: Speci men Type: BLOOD SPECIMENOrdering Facility: [facility] Address: [address] [place] [address] Performed By: #### 5 7021-8 ####[facility] [id number] [place] [address] [place] Eosinophils/100 WBC (Bld) 2.0 % Normal [facility] Comment on above: Order Comment: Speci men Type: BLOOD SPECIMENOrdering Facility: [facility] Address: [address] [place] [address] Performed By: #### 5 7021-8 ####[facility] [id number] [place] [address] [place] Erythrocyte distribution width (RBC) [Ratio] 19.6 % High 11.5-15.0 [facility] Comment on above: Order Comment: Speci men Type: BLOOD SPECIMENOrdering Facility: [facility] Address: [address] [place] [address] Performed By: #### 5 7021-8 ####[facility] HASEEB [id number] [place] [address] [place] Hematocrit (Bld) [Volume fraction] 27.2 % Low 39.0-51.0 [facility] Comment on above: Order Comment: Speci men Type: BLOOD SPECIMENOrdering Facility: [facility] Address: [address] [place] [address] Performed By: #### 5 7021-8 ####[facility]BURGNCLIManuel [id number] [place] [address] [place] Hemoglobin (Bld) [Mass/Vol] 9.1 g/dL Low 13.0-17.0 [facility] Comment on above: Order Comment: Speci men Type: BLOOD SPECIMENOrdering Facility: [facility] Address: [address] [place] [address] Performed By: #### 5 7021-8 ####[facility]BUR[facility]ERTA [id number] [place] [address] [place] Immature granulocytes (Bld) [#/Vol] 10*3/uL Normal <0.10 [facility] Comment on above: Order Comment: Speci men Type: BLOOD SPECIMENOrdering Facility: [facility] Address: [address] [place] [address] Performed By: #### 5 7021-8 ####[facility] [id number] [place] [address] [place] Immature granulocytes/100 WBC (Bld) 0.2 % Normal [facility] Comment on above: Order Comment: Speci men Type: BLOOD SPECIMENOrdering Facility: [facility] Address: [address] [place] [address] Performed By: #### 5 7021-8 ####[facility]ITALWNCLIA [id number] [place] [address] [place] Lymphocytes (Bld) [#/Vol] 1.15 10*3/uL Normal 1.00-4.00 [facility] Comment on above: Order Comment: Speci men Type: BLOOD SPECIMENOrdering Facility: [facility] Address: [address] [place] [address] Performed By: #### 5 7021-8 ####[facility] [id number] [place] [address] [place] Lymphocytes/100 WBC (Bld) 22.7 % Normal [facility] Comment on above: Order Comment: Speci men Type: BLOOD SPECIMENOrdering Facility: [facility] Address: [address] [place] [address] Performed By: #### 5 7021-8 ####[facility] [id number] [place] [address] [place] MCH (RBC) [Entitic mass] 37.9 pg High 26.0-34.0 [facility] Comment on above: Order Comment: Speci men Type: BLOOD SPECIMENOrdering Facility: [facility] Address: [address] [place] [address] Performed By: #### 5 7021-8 ####[facility] [id number] [place] [address] [place] MCHC (RBC) [Mass/Vol] 33.5 g/dL Normal 30.5-36.0 [facility] Comment on above: Order Comment: Speci men Type: BLOOD SPECIMENOrdering Facility: [facility] Address: [address] [place] [address] Performed By: #### 5 7021-8 ####[facility] [id number] [place] [address] [place] MCV (RBC) [Entitic vol] 113.3 fL High 80.0-100.0 [facility] Comment on above: Order Comment: Speci men Type: BLOOD SPECIMENOrdering Facility: [facility] Address: [address] [place] [address] Performed By: #### 5 7021-8 ####[facility] [id number] [place] [address] [place] Monocytes (Bld) [#/Vol] 0.70 10*3/uL Normal <0.87 [facility] Comment on above: Order Comment: Speci men Type: BLOOD SPECIMENOrdering Facility: [facility] Address: [address] [place] [address] Performed By: #### 5 7021-8 ####[facility] [id number] [place] [address] [place] Monocytes/100 WBC (Bld) 13.8 % Normal [facility] Comment on above: Order Comment: Speci men Type: BLOOD SPECIMENOrdering Facility: [facility] Address: [address] [place] [address] Performed By: #### 5 7021-8 ####[facility] [id number] [place] [address] [place] Neutrophils (Bld) [#/Vol] 3.05 10*3/uL Normal 1.45-7.50 [facility] Comment on above: Order Comment: Speci men Type: BLOOD SPECIMENOrdering Facility: [facility] Address: [address] [place] [address] Performed By: #### 5 7021-8 ####[facility] [id number] [place] [address] [place] Neutrophils/100 WBC (Bld) 60.3 % Normal [facility] Comment on above: Order Comment: Speci men Type: BLOOD SPECIMENOrdering Facility: [facility] Address: [address] [place] [address] Performed By: #### 5 7021-8 ####[facility] JONHJEAN [id number] [place] [address] [place] Nucleated RBC (Bld) [#/Vol] 0.03 10*3/uL High <0.01 [facility] Comment on above: Order Comment: Speci men Type: BLOOD SPECIMENOrdering Facility: [facility] Address: [address] [place] [address] Performed By: #### 5 7021-8 ####[facility] [id number] [place] [address] [place] Nucleated RBC/100 WBC (Bld) [Ratio] 0.6 /100 WBC Normal [facility] Comment on above: Order Comment: Speci men Type: BLOOD SPECIMENOrdering Facility: [facility] Address: [address] [place] [address] Performed By: #### 5 7021-8 ####[facility]BURGROBERTLIA [id number] [place] [address] [place] Platelet mean volume (Bld) [Entitic vol] 11.2 fL Normal 9.0-12.7 [facility] Comment on above: Order Comment: Speci men Type: BLOOD SPECIMENOrdering Facility: [facility] Address: [address] [place] [address] Performed By: #### 5 7021-8 ####[facility] [id number] [place] [address] [place] Platelets (Bld) [#/Vol] 283 10*3/uL Normal 150-400 [facility] Comment on above: Order Comment: Speci men Type: BLOOD SPECIMENOrdering Facility: [facility] Address: [address] [place] [address] Performed By: #### 5 7021-8 ####[facility] [id number] [place] [address] [place] RBC (Bld) [#/Vol] 2.40 10*6/uL Low 4.20-6.00 [facility] Comment on above: Order Comment: Speci men Type: BLOOD SPECIMENOrdering Facility: [facility] Address: [address] [place] [address] Performed By: #### 5 7021-8 ####[facility] [id number] [place] [address] [place] WBC (Bld) [#/Vol] 5.06 10*3/uL Normal 3.70-11.00 [facility] Comment on above: Order Comment: Speci men Type: BLOOD SPECIMENOrdering Facility: [facility] Address: [address] [place] [address] Performed By: #### 5 7021-8 ####[facility]GNCA [id number] [place] [address] [place] EPO SerPl-aCncon 11-15-2024 Erythropoietin (EPO) Qn 78.6 mIU/mL High 2.6-18.5 [facility] Comment on above: Order Comment: Speci men Type: BLOOD SPECIMENOrdering Facility: [facility] Address: [address] [place] [address] Performed By: #### 1 5061-5 ####[facility] LABCLIA [id number] [facility] [id number] [place], [place] [id number] [place] CNPNon 10-14-2024 CNPN Normal [facility] CNPNon 10-13-2024 CNPN Telephone ([facility]) -- KIERRASRINI ([id number]) 1935 M Date Time Provider Department 10/13/24 [facility] During your visit today, we recorded the following information about you: Iram Johnson, MANAGER DAIRY.[employer] SALES REPRESENTATIVE 10/13/2024 8:16 AM Signed Let the patient know, stress test was mildly abnormal. If he does not feel he is having any symptoms that are different from the past, we do not need to do anything. If he feels like he is having chest pain or shortness of breath different from the past, we can proceed to cardiac catheterization. If he would like to proceed to cardiac catheterization, he will need to come and see me so we can schedule it. Shilpa Abraham MA 10/13/2024 10:01 AM Signed Patient was notified of the Providers message in chart and stated that he does not feel any different. He said he will wait until he feels his health declines before he has any testing done. Allergies As of Date: 10/13/2024 Noted Allergy Reaction SIMVASTATIN 08/17/2012 14 - Other: See Comments Comments: Elevated CK Date Reviewed: 10/11/2024 Reviewed by: Baljinder Galloway DO - Fully Assessed Reason for Visit: Results [95] Patient Update [1234] Prescriptions as of 10/13/2024 - rivaroxaban (XARELTO) 20 mg tablet Take 1 tablet by mouth daily with dinner for 14 days. - cholecalciferol (VITAMIN D3) 1,000 unit tab tablet Take by mouth once daily. - levothyroxine (SYNTHROID) 100 mcg tablet Take 1 tablet by mouth once daily. Take on empty stomach - folic acid 1 mg tablet Take 1 tablet by mouth once daily. - atorvastatin (LIPITOR) 20 mg tablet Take 1 tablet by mouth once daily. - furosemide (LASIX) 40 mg tablet Take 0.5 tablets by mouth two times a day. AM and noon. - ADULT LOW DOSE ASPIRIN ORAL Take 81 mg by mouth once daily. - rivaroxaban (XARELTO) 20 mg tablet Take 1 tablet by mouth daily with dinner. Resume Sep 20 2022 - nitroglycerin sublingual (NITROQUICK) 0.4 mg SL tablet nitroglycerin 0.4 mg sublingual tablet - cyanocobalamin (VITAMIN B-12) 1,000 mcg tab Take 1,000 mcg by mouth once daily. - polyethylene glycol 3350 (MIRALAX, GLYCOLAX) 17 gram packet Take 17 g by mouth once daily as needed for constipation. Dissolve dose in 4 - 8 ounces of liquid and take as directed. - MULTIVITAMIN TABLET Take 1 tablet by mouth once daily. Meds Comments as of 09/19/2022: 09/19/22 The medications are managed by this patient by: DAUGHTER Ten Weber, [facility] Problem List As Of Date 10/13/2024 Noted Resolved Injury to ulnar nerve [S54.00XA] 09/21/2003 06/16/2023 Follow-up examination following surgery [V67.0] 10/31/2003 01/02/2015 Mixed hyperlipidemia [E78.2] 07/04/2005 Hypothyroidism [E03.9] 07/04/2005 Special screening for malignant neoplasms, colo*08/11/2005 01/02/2015 Generalized osteoarthrosis [M15.9] 06/05/2006 01/22/2024 ACTINIC DAMAGE///SOLAR SKIN DAMAGE NOS [L57.8] 04/07/2008 01/02/2015 Dermatitis due to cosmetics [L25.0] 04/07/2008 01/02/2015 ACTINIC DAMAGE///CHR SOLAR SKIN DAMAGE NOS [L57*04/07/2008 01/02/2015 Other seborrheic keratosis [L82.1] 04/07/2008 01/02/2015 SOLAR LENTIGINES///DYSCHROMIA OTHER [L81.9] 04/07/2008 01/02/2015 ACTINIC KERATOSIS (Premalignant AK) [L57.0] 04/07/2008 01/02/2015 Primary localized osteoarthrosis, shoulder laurence*09/21/2008 06/16/2023 Osteoarthrosis, unspecified whether generalized*12/14/2008 06/16/2023 Follow-Up Examination, Following Unspecified Servin*06/11/2009 08/14/2009 Spinal stenosis of lumbar region with neurogeni*06/28/2009 Insomnia [G47.00] 08/13/2010 06/16/2023 Erectile dysfunction [N52.9] 08/13/2010 06/16/2023 Viral warts, unspecified [B07.9] 09/29/2010 01/02/2015 Irritated//Inflamed Seborrheic Keratosis [L82.0]09/29/2010 01/02/2015 Back pain [M54.9] 01/09/2012 06/16/2023 Essential hypertension, benign [I10] 01/12/2012 01/22/2024 Myasthenia gravis (HCC) [G70.00] 04/19/2012 09/15/2022 Xerosis cutis [L85.3] 12/14/2012 01/02/2015 Pruritus [L29.9] 12/14/2012 01/02/2015 Actinic skin damage [L57.8] 12/14/2012 01/02/2015 Solar lentigo [L81.4] 12/14/2012 01/02/2015 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] 02/08/2015 06/16/2023 B12 deficiency [E53.8] 07/11/2020 Vitamin D deficiency [E55.9] 07/11/2020 Macrocytosis [D75.89] 07/11/2020 06/16/2023 Venous stasis of both lower extremities [I87.8] 07/11/2020 07/29/2024 CAD (coronary artery disease) [I25.10] Diverticulosis [K57.90] 06/16/2023 History of anemia [Z86.2] 06/16/2023 Hx of CABG [Z95.1] 07/2021 Hx of colonoscopy [Z98.890] 09/27/2015 06/16/2023 Hypertension [I10] Lumbar stenosis [M48.061] 06/16/2023 Status post ligation of left atrial appendage [*07/202106/16/2023 Osteoarthritis, generalized [M15.9] 06/16/2023 PAF (paroxysmal atrial fibrillation) (HCC) [I48*202007/23/2023 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 Normal [facility] Stress Reporton 10-12-2024 Stress Report [facility] [address] [place] [address] MR#: [id number] Acct: [id number] Name: SRINI LUIS Rep #: [id number] : 1935 88 From: Cristobal Villafuerte MD Primary Care: Care Physician,No Primary Status: REG CLI Referring Dr: Iram Johnson APPROVER-C Sex: M C Stress Test Report Date: 10/12/2024 Procedure: Pharmacologic stress nuclear imaging study Indications: CAD Consent: Per the patient Procedure: The patient underwent pharmacologic (Regadenoson) evaluation with a peak heart rate of 91 beats per minute (68%predicted maximal heart rate) and a peak blood pressure of 118/68 mmHg. The baseline ECG demonstrated regular branch block, likely sinus rhythm. EKG during lexiscan infusion revealed no significant ischemic changes. EKG post infusion revealed no significant ischemic changes [There were no cardiac dysrhythmias pretest, during pharmacologic infusion, or recovery]. [There was no complaint of chest discomfort during pharmacologic infusion or recovery]. The examination was discontinued secondary to completion of protocol. Impression: 1. Lexiscan stress test test is negative for Lexiscan infusion induced EKG changes of ischemia. 2. Lexiscan stress test test is negative for Lexiscan infusion induced chest pain. 3. Results of the nuclear portion of the test is as below Myocardial perfusion imaging study: Technique: The patient was injected with 11.1 millicuries of technetium 99m Cardiolite and subsequently rest SPECT Cardiolite nuclear imaging was obtained in the horizontal long, vertical long, and short axis views. The patient underwent pharmacologic [Regadenoson 0.4mg] evaluation. Please see above for details. The patient was injected with 33.8 millicuries of technetium 99m Cardiolite and subsequently stress SPECT Cardiolite nuclear imaging was obtained in the horizontal long, vertical long, and short axis views. A gated Cardiolite study at peak stress was obtained. Interpretation: Rest and stress SPECT Cardiolite nuclear imaging status post realignment, normalization, and attenuation correction demonstrate mild fixed defect involving the lateral wall. There is also decreased uptake in the apex on the stress images compared to the rest images suggestive of mild apical ischemia. Gated images reveal hypokinesis of the septum and inferior wall. The reported LVEF is 43%. Impression: 1. There is evidence of mild ischemia involving the apex. 2. Estimated ejection fraction is 43%. This note was generated with [employer] dictation software. It may contain incorrect words, spelling, and punctuation that were not noted in checking the note before signing. 10/12/24 1213 Date Cristobal Villafuerte MD CC: ZEE Johnson; No Primary Care Physician Date Dictated: 10/12/241200 Date Transcribed: 10/12/241200 Auto Carrier Driver: MAYRA Signed Normal [facility] CBC W Auto Differential pane l (Bld)on 10-11-2024 Basophils (Bld) [#/Vol] 0.06 10*3/uL Normal <0.11 [facility] Comment on above: Order Comment: Speci men Type: BLOOD SPECIMENOrdering Facility: [facility] Address: [address] [place] [address] Performed By: #### 5 7021-8 ####[facility] [id number] [place] [address] [place] Basophils/100 WBC (Bld) 1.0 % Normal [facility] Comment on above: Order Comment: Speci men Type: BLOOD SPECIMENOrdering Facility: [facility] Address: [address] [place] [address] Performed By: #### 5 7021-8 ####[facility] [id number] [place] [address] [place] Differential cell count method Nom (Bld) Auto Normal [facility] Comment on above: Order Comment: Speci men Type: BLOOD SPECIMENOrdering Facility: [facility] Address: [address] [place] [address] Performed By: #### 5 7021-8 ####[facility] [id number] [place] [address] [place] Eosinophils (Bld) [#/Vol] 0.12 10*3/uL Normal <0.46 [facility] Comment on above: Order Comment: Speci men Type: BLOOD SPECIMENOrdering Facility: [facility] Address: [address] [place] [address] Performed By: #### 5 7021-8 ####[facility] [id number] [place] [address] [place] Eosinophils/100 WBC (Bld) 2.1 % Normal [facility] Comment on above: Order Comment: Speci men Type: BLOOD SPECIMENOrdering Facility: [facility] Address: [address] [place] [address] Performed By: #### 5 7021-8 ####[facility] [id number] [place] [address] [place] Erythrocyte distribution width (RBC) [Ratio] 19.7 % High 11.5-15.0 [facility] Comment on above: Order Comment: Speci men Type: BLOOD SPECIMENOrdering Facility: [facility] Address: [address] [place] [address] Performed By: #### 5 7021-8 ####[facility] HOSPITALRADHA [id number] [place] [address] [place] Hematocrit (Bld) [Volume fraction] 27.9 % Low 39.0-51.0 [facility] Comment on above: Order Comment: Speci men Type: BLOOD SPECIMENOrdering Facility: [facility] Address: [address] [place] [address] Performed By: #### 5 7021-8 ####[facility] [id number] [place] [address] [place] Hemoglobin (Bld) [Mass/Vol] 9.2 g/dL Low 13.0-17.0 [facility] Comment on above: Order Comment: Speci men Type: BLOOD SPECIMENOrdering Facility: [facility] Address: [address] [place] [address] Performed By: #### 5 7021-8 ####[facility] [id number] [place] [address] [place] Immature granulocytes (Bld) [#/Vol] 10*3/uL Normal <0.10 [facility] Comment on above: Order Comment: Speci men Type: BLOOD SPECIMENOrdering Facility: [facility] Address: [address] [place] [address] Performed By: #### 5 7021-8 ####[facility] [id number] [place] [address] [place] Immature granulocytes/100 WBC (Bld) 0.2 % Normal [facility] Comment on above: Order Comment: Speci men Type: BLOOD SPECIMENOrdering Facility: [facility] Address: [address] [place] [address] Performed By: #### 5 7021-8 ####[facility] [id number] [place] [address] [place] Lymphocytes (Bld) [#/Vol] 1.08 10*3/uL Normal 1.00-4.00 [facility] Comment on above: Order Comment: Speci men Type: BLOOD SPECIMENOrdering Facility: [facility] Address: [address] [place] [address] Performed By: #### 5 7021-8 ####[facility] [id number] [place] [address] [place] Lymphocytes/100 WBC (Bld) 18.5 % Normal [facility] Comment on above: Order Comment: Speci men Type: BLOOD SPECIMENOrdering Facility: [facility] Address: [address] [place] [address] Performed By: #### 5 7021-8 ####[facility] JONHCHIPPEWA FALLSROBERTA [id number] [place] [address] [place] MCH (RBC) [Entitic mass] 37.6 pg High 26.0-34.0 [facility] Comment on above: Order Comment: Speci men Type: BLOOD SPECIMENOrdering Facility: [facility] Address: [address] [place] [address] Performed By: #### 5 7021-8 ####[facility] [id number] [place] [address] [place] MCHC (RBC) [Mass/Vol] 33.0 g/dL Normal 30.5-36.0 [facility] Comment on above: Order Comment: Speci men Type: BLOOD SPECIMENOrdering Facility: [facility] Address: [address] [place] [address] Performed By: #### 5 7021-8 ####[facility] [id number] [place] [address] [place] MCV (RBC) [Entitic vol] 113.9 fL High 80.0-100.0 [facility] Comment on above: Order Comment: Speci men Type: BLOOD SPECIMENOrdering Facility: [facility] Address: [address] [place] [address] Performed By: #### 5 7021-8 ####[facility] [id number] [place] [address] [place] Monocytes (Bld) [#/Vol] 0.84 10*3/uL Normal <0.87 [facility] Comment on above: Order Comment: Speci men Type: BLOOD SPECIMENOrdering Facility: [facility] Address: [address] [place] [address] Performed By: #### 5 7021-8 ####[facility] HOS[facility]IT[facility] [id number] [place] [address] [place] Monocytes/100 WBC (Bld) 14.4 % Normal [facility] Comment on above: Order Comment: Speci men Type: BLOOD SPECIMENOrdering Facility: [facility] Address: [address] [place] [address] Performed By: #### 5 7021-8 ####[facility] [id number] [place] [address] [place] Neutrophils (Bld) [#/Vol] 3.74 10*3/uL Normal 1.45-7.50 [facility] Comment on above: Order Comment: Speci men Type: BLOOD SPECIMENOrdering Facility: [facility] Address: [address] [place] [address] Performed By: #### 5 7021-8 ####[facility] [id number] [place] [address] [place] Neutrophils/100 WBC (Bld) 63.8 % Normal [facility] Comment on above: Order Comment: Speci men Type: BLOOD SPECIMENOrdering Facility: [facility] Address: [address] [place] [address] Performed By: #### 5 7021-8 ####[facility] [id number] [place] [address] [place] Nucleated RBC (Bld) [#/Vol] 0.03 10*3/uL High <0.01 [facility] Comment on above: Order Comment: Speci men Type: BLOOD SPECIMENOrdering Facility: [facility] Address: [address] [place] [address] Performed By: #### 5 7021-8 ####[facility]CL[facility] [id number] [place] [address] [place] Nucleated RBC/100 WBC (Bld) [Ratio] 0.5 /100 WBC Normal [facility] Comment on above: Order Comment: Speci men Type: BLOOD SPECIMENOrdering Facility: [facility] Address: [address] [place] [address] Performed By: #### 5 7021-8 ####[facility] [id number] [place] [address] [place] Platelet mean volume (Bld) [Entitic vol] 11.1 fL Normal 9.0-12.7 [facility] Comment on above: Order Comment: Speci men Type: BLOOD SPECIMENOrdering Facility: [facility] Address: [address] [place] [address] Performed By: #### 5 7021-8 ####[facility] [id number] [place] [address] [place] Platelets (Bld) [#/Vol] 259 10*3/uL Normal 150-400 [facility] Comment on above: Order Comment: Speci men Type: BLOOD SPECIMENOrdering Facility: [facility] Address: [address] [place] [address] Performed By: #### 5 7021-8 ####[facility] [id number] [place] [address] [place] RBC (Bld) [#/Vol] 2.45 10*6/uL Low 4.20-6.00 [facility] Comment on above: Order Comment: Speci men Type: BLOOD SPECIMENOrdering Facility: [facility] Address: [address] [place] [address] Performed By: #### 5 7021-8 ####[facility] [id number] [place] [address] [place] WBC (Bld) [#/Vol] 5.85 10*3/uL Normal 3.70-11.00 [facility] Comment on above: Order Comment: Speci men Type: BLOOD SPECIMENOrdering Facility: [facility] Address: [address] [place] [address] Performed By: #### 5 7021-8 ####[facility] BORJACHIPPEWA FALLSMALENA [id number] [place] [id number] [place] CNOVSPon 10-11-2024 CNOVSP Normal [facility] CNPNon 10-10-2024 CNPN Normal [facility] CNPTOUTREACHon 10-03-2024 CNPTOUTREACH Normal [facility] CNOVon 09-27-2024 [facility] -- SRINI LUIS ([id number]) 1935 Date Time Provider Department 09/27/24 11:00 AM [facility] During your visit today, we recorded the following information about you: Pulse Blood pressure Weight Height 62/minute 116/58 78 kg 1.702 m Iram Johnson, MANAGER DAIRY.OFFICE MACHINES SALES REPRESENTATIVE 09/27/2024 11:13 AM Signed [facility] Ronaldo Pleitez MD SUBJECTIVE: Srini Luis is a 88 year old male who is here today for a follow-up visit. The patient is doing reasonably well from a cardiovascular standpoint. He has intermittent shortness of breath. It does not always have to relate to activity. It is not severe. He has had some lower extremity but is improved since he has been wearing his compression socks. He has not had chest pain, palpitations, PND, orthopnea, syncope, or near syncope. 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; Confirmed Blk below His by His Bundle Electrogram Chronic atrial fibrillation ([facility]) Chronic heart failure with preserved ejection fraction ([facility]) 07/29/2024 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 2017 when he's been off medication Nocturnal hypoxemia On oxygen at night Osteoarthritis, generalized Pacemaker 09/17/2022 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 Vitamin D deficiency 07/11/2020 PAST SURGICAL HISTORY Procedure Laterality Date ANKLE RIGHT OP SURGERY Right 12/18/2020 Dr Arreola [facility] ARTHROPLASTY TOTAL SHOULDER 11/09/2008 right ARTHROSCOPY OF JOINT UNLISTED 1999 [place]bow right CABG (4) VEIN GRAFTS AND ARTERIAL GRAFT(S) 07/21/2021 In [facility] COLONOSCOPY FLX DX W/COLLJ SPEC WHEN PFRMD 09/01/2005 Colonoscopy COLONOSCOPY FLX DX W/COLLJ SPEC WHEN PFRMD 09/27/2015 Colonoscopy REMOVAL OF TONSILS,<12 Y/O S $ DUAL CHMBR PACER [id number] Left 09/17/2022 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 FAMILY HISTORY Problem Relation Age of Onset Heart Mother Heart Father CHF Colon Cancer No Family History Prostate Cancer No Family History Blood Clots No Family History NO PE OR DVT SOCIAL HISTORY: Social History Tobacco Use Smoking status: Former Current packs/day: 0.00 Types: Cigarettes Quit date: 08/11/1989 Years since quittin.1 Passive exposure: Past Smokeless tobacco: Never Tobacco comments: quit 18-19 years ago Vaping Use Vaping status: Never Used Substance Use Topics Alcohol use: Yes Alcohol/week: 3.0 standard drinks of alcohol Types: 3 Glasses of wine per week Comment: occ Drug use: No ALLERGIES: Simvastatin CURRENT MEDICATIONS: Current Outpatient Medications Medication Sig cholecalciferol (VITAMIN D3) 1,000 unit tab tablet Take by mouth once daily. levothyroxine (SYNTHROID) 100 mcg tablet Take 1 tablet by mouth once daily. Take on empty stomach folic acid 1 mg tablet Take 1 tablet by mouth once daily. atorvastatin (LIPITOR) 20 mg tablet Take 1 tablet by mouth once daily. furosemide (LASIX) 40 mg tablet Take 0.5 tablets by mouth two times a day. AM and noon. ADULT LOW DOSE ASPIRIN ORAL Take 81 mg by mouth once daily. rivaroxaban (XARELTO) 20 mg tablet Take 1 tablet by mouth daily with dinner. Resume Sep 20 2022 nitroglycerin sublingual (NITROQUICK) 0.4 mg SL tablet nitroglycerin 0.4 mg sublingual tablet cyanocobalamin (VITAMIN B-12) 1,000 mcg tab Take 1,000 mcg by mouth once daily. polye (more content not included)... Normal [facility] CNOV [facility] -- SRINI LUIS ([id number]) 1935 M Date Time Provider Department 09/27/24 10:30 AM [facility] [id number] During your visit today, we recorded the following information about you: Israel Minor MD 10/06/2024 5:16 PM Signed Dual Pacer Report In Office Check Date: September 27, 2024 Time: 10:32 AM Devices: Implants Lead Ra Lead Biotronik-09/17/2022 - Implanted Heart Model/Cat number: ADAIR Pena [id number] Serial number: [id number] Indigo Mixer: BIOTRONISidense Lot number: LEFT AXILLARY VEIN Size: Right Atrial Pacing Lead Rv Lead Biotronik-09/17/2022 - Implanted Heart Model/Cat number: ADAIR Pena [id number] Serial number: [id number] Indigo Mixer: BIOTRONIK Kyte Lot number: LEFT CEPHALIC VEIN Size: Right Ventricular Pacing Lead Pacemaker Dual Pacer Biotronik-09/17/2022 - Implanted (Left) Chest Wall Model/Cat number: EDORA 8 [id number]-T [id number] Serial number: [id number] Indigo Mixer: BIOTRONISidense Lot number: INITIAL DUAL PACER IMPLANT. 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; LVEF 68%; 4V Cabg 07/22/2021; TIMMY Ligation, Post Cabg Afib; Xarelto; Symptoms: None Underlying Rhythm: Chronic AFIB Last Interrogation Date: 02-29-2024 Estimated Remaining Longevity: 13 yrs 6 months until [place] Dependency: No Interrogation Performed by: Stephany Abraham LPN Programming Parameters Mode: VVI Lower Rate: 60 Upper Track: N/a Upper Sensor: N/a Paced AV Delay: N/a Sensed AV Delay: N/a Atrial Refractory: N/a Mode Switch: N/a Atrial: off Right Ventricle: Threshold: 0.7 V @ 0.2 msec Programmed amp/PW: 1.0 V @ 0.75 msec R wave: 11.2 mV Sensitivity: auto Impedance: 409 ohms RV pacin% Episodes: Atrial Fib count: Chronic AFIB Atrial burden: 100% Mode Switch episodes: 0 Ventricular Fibrillation count: 0 Fast Ventricular Tachycardia count: 0 Slow Ventricular Tachycardia: 0 NSVT: 0 High Ventricular Rates: 1 Summary: Normal device function. Normal pacing and sensing threshold. Battery: 13 yrs 6 months until [place]. Histogram: ok. Atrial episodes: n/a. Ventricular episodes: 1 high ventricular rates, 4 seconds. Changes: none. Follow up: 3 month remote, 6 months device check and provider appointment. View External Cardiology - Commercial [employer] Strips [ID [id number]] Allergies As of Date: 09/27/2024 Noted Allergy Reaction SIMVASTATIN 08/17/2012 14 - Other: See Comments Comments: Elevated CK Date Reviewed: 09/27/2024 Reviewed by: Shilpa Abraham MA - Fully Assessed Reason for Visit: Permanent Pacemaker [1364] Primary Visit Diagnosis:Encounter for care of pacemaker [Z45.018] Prescriptions as of 10/06/2024 - cholecalciferol (VITAMIN D3) 1,000 unit tab tablet Take by mouth once daily. - levothyroxine (SYNTHROID) 100 mcg tablet Take 1 tablet by mouth once daily. Take on empty stomach - folic acid 1 mg tablet Take 1 tablet by mouth once daily. - atorvastatin (LIPITOR) 20 mg tablet Take 1 tablet by mouth once daily. - furosemide (LASIX) 40 mg tablet Take 0.5 tablets by mouth two times a day. AM and noon. - ADULT LOW DOSE ASPIRIN ORAL Take 81 mg by mouth once daily. - rivaroxaban (XARELTO) 20 mg tablet Take 1 tablet by mouth daily with dinner. Resume Sep 20 2022 - nitroglycerin sublingual (NITROQUICK) 0.4 mg SL tablet nitroglycerin 0.4 mg sublingual tablet - cyanocobalamin (VITAMIN B-12) 1,000 mcg tab Take 1,000 mcg by mouth once daily. - polyethylene glycol 3350 (MIRALAX, GLYCOLAX) 17 gram packet Take 17 g by mouth once daily as needed for constipation. Dissolve dose in 4 - 8 ounces of liquid and take as directed. - MULTIVITAMIN TABLET Take 1 tablet by mouth once daily. 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] 09/21/2003 06/16/2023 Follow-up examination following surgery [V67.0] 10/31/2003 01/02/2015 Mixed hyperlipidemia [E78.2] 07/04/2005 Hypothyroidism [E03.9] 07/04/2005 Special screening for malignant neoplasms, colo*08/11/2005 01/02/2015 Generalized osteoarthrosis [M15.9] 06/05/2006 01/22/2024 ACTINIC DAMAGE///SOLAR SKIN DAMAGE NOS [L57.8] 04/07/2008 01/02/2015 Dermatitis due to cosmetics [L25.0] 04/07/2008 01/02/2015 ACTINIC DAMAGE///CHR SOLAR SKIN DAMAGE NOS [L57*04/07/2008 01/02/2015 Other seborrheic keratosis [L82.1] 04/07/2008 01/02/2015 SOLAR LENTIGINES///DYSCHROMIA OTHER [L81.9] 04/07/2008 01/02/2015 ACTINIC KERATOSIS (Premalignant AK) [L57.0] 04/07/2008 01/02/2015 Primary localized osteoarthrosis, shoulder laurence*09/21/2008 06/16/2023 Osteoarthrosis, unspecified whether generalized*12/14/2008 06/16/2023 Follow-Up Examination, Following Unspecified Servin*06/11/2009 08/14/2009 Spinal stenosis of lumbar region with neurogeni*06/28/2009 Insomnia [G47.00] 08/13/2010 (more content not included)... [facility] ([facility]) -- SRINI LUIS ([id number]) 1935 M Date Time Provider Department 09/27/24 IRAM JOHNSON [facility] During your visit today, we recorded the following information about you: Shilpa Abraham MA 09/27/2024 4:03 PM Signed Ref #[id number] Patient needs a Peer to Peer for his Stress Test. The number is [phone]. Iram Johnson, MANAGER DAIRY.OFFICE MACHINES SALES REPRESENTATIVE 09/30/2024 8:24 AM Signed Apparently the patient does not need a peer to peer, the reference number is the approval number for the stress test. It is good from 09-27-2024-12/25/2024. Shilpa Abraham MA 09/30/2024 2:52 PM Addendum Spoke with Zaria at [facility]. Patients Stress Test is scheduled for 6:45 am at [facility] on 10/12/24. Spoke with patients daughter Liza and [facility]. Both parties are aware of the date, time and instructions. Order was faxed ([phone]) to [facility]. Allergies As of Date: 09/27/2024 Noted Allergy Reaction SIMVASTATIN 08/17/2012 14 - Other: See Comments Comments: Elevated CK Date Reviewed: 09/27/2024 Reviewed by: Shilpa Abraham MA - Fully Assessed Prescriptions as of 09/30/2024 - cholecalciferol (VITAMIN D3) 1,000 unit tab tablet Take by mouth once daily. - levothyroxine (SYNTHROID) 100 mcg tablet Take 1 tablet by mouth once daily. Take on empty stomach - folic acid 1 mg tablet Take 1 tablet by mouth once daily. - atorvastatin (LIPITOR) 20 mg tablet Take 1 tablet by mouth once daily. - furosemide (LASIX) 40 mg tablet Take 0.5 tablets by mouth two times a day. AM and noon. - ADULT LOW DOSE ASPIRIN ORAL Take 81 mg by mouth once daily. - rivaroxaban (XARELTO) 20 mg tablet Take 1 tablet by mouth daily with dinner. Resume Sep 20 2022 - nitroglycerin sublingual (NITROQUICK) 0.4 mg SL tablet nitroglycerin 0.4 mg sublingual tablet - cyanocobalamin (VITAMIN B-12) 1,000 mcg tab Take 1,000 mcg by mouth once daily. - polyethylene glycol 3350 (MIRALAX, GLYCOLAX) 17 gram packet Take 17 g by mouth once daily as needed for constipation. Dissolve dose in 4 - 8 ounces of liquid and take as directed. - MULTIVITAMIN TABLET Take 1 tablet by mouth once daily. 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] 09/21/2003 06/16/2023 Follow-up examination following surgery [V67.0] 10/31/2003 01/02/2015 Mixed hyperlipidemia [E78.2] 07/04/2005 Hypothyroidism [E03.9] 07/04/2005 Special screening for malignant neoplasms, colo*08/11/2005 01/02/2015 Generalized osteoarthrosis [M15.9] 06/05/2006 01/22/2024 ACTINIC DAMAGE///SOLAR SKIN DAMAGE NOS [L57.8] 04/07/2008 01/02/2015 Dermatitis due to cosmetics [L25.0] 04/07/2008 01/02/2015 ACTINIC DAMAGE///CHR SOLAR SKIN DAMAGE NOS [L57*04/07/2008 01/02/2015 Other seborrheic keratosis [L82.1] 04/07/2008 01/02/2015 SOLAR LENTIGINES///DYSCHROMIA OTHER [L81.9] 04/07/2008 01/02/2015 ACTINIC KERATOSIS (Premalignant AK) [L57.0] 04/07/2008 01/02/2015 Primary localized osteoarthrosis, shoulder laurence*09/21/2008 06/16/2023 Osteoarthrosis, unspecified whether generalized*12/14/2008 06/16/2023 Follow-Up Examination, Following Unspecified Servin*06/11/2009 08/14/2009 Spinal stenosis of lumbar region with neurogeni*06/28/2009 Insomnia [G47.00] 08/13/2010 06/16/2023 Erectile dysfunction [N52.9] 08/13/2010 06/16/2023 Viral warts, unspecified [B07.9] 09/29/2010 01/02/2015 Irritated//Inflamed Seborrheic Keratosis [L82.0]09/29/2010 01/02/2015 Back pain [M54.9] 01/09/2012 06/16/2023 Essential hypertension, benign [I10] 01/12/2012 01/22/2024 Myasthenia gravis (HCC) [G70.00] 04/19/2012 09/15/2022 Xerosis cutis [L85.3] 12/14/2012 01/02/2015 Pruritus [L29.9] 12/14/2012 01/02/2015 Actinic skin damage [L57.8] 12/14/2012 01/02/2015 Solar lentigo [L81.4] 12/14/2012 01/02/2015 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] 02/08/2015 06/16/2023 B12 deficiency [E53.8] 07/11/2020 Vitamin D deficiency [E55.9] 07/11/2020 Macrocytosis [D75.89] 07/11/2020 06/16/2023 Venous stasis of both lower extremities [I87.8] 07/11/2020 07/29/2024 CAD (coronary artery disease) [I25.10] Diverticulosis [K57.90] 06/16/2023 History of anemia [Z86.2] 06/16/2023 Hx of CABG [Z95.1] 07/2021 Hx of colonoscopy [Z98.890] 09/27/2015 06/16/2023 Hypertension [I10] Lumbar stenosis [M48.061] 06/16/2023 Status post ligation of left atrial appendage [*07/202106/16/2023 Osteoarthritis, 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 Normal [facility] CBC W Auto Differential pane l (Bld)on 09-22-2024 Basophils (Bld) [#/Vol] 0.05 10*3/uL Normal <0.11 [facility] Comment on above: Order Comment: Speci men Type: BLOOD SPECIMENOrdering Facility: [facility] Address: [address] [place] [address] [place] [address] Performed By: #### 5 7021-8 ####[facility] JONHWNCLIA [id number] [place] [address] [place] Basophils/100 WBC (Bld) 0.9 % Normal [facility] Comment on above: Order Comment: Speci men Type: BLOOD SPECIMENOrdering Facility: [facility] Address: [address] [place] [address] Performed By: #### 5 7021-8 ####[facility] JONHCHIPPEWA FALLSROBERTLIA [id number] [place] [address] [place] Differential cell count method Nom (Bld) Auto Normal [facility] Comment on above: Order Comment: Speci men Type: BLOOD SPECIMENOrdering Facility: [facility] Address: [address] [place] [address] Performed By: #### 5 7021-8 ####[facility] JONHCHIPPEWA FALLSKOSTAA [id number] [place] [address] [place] Eosinophils (Bld) [#/Vol] 0.14 10*3/uL Normal <0.46 [facility] Comment on above: Order Comment: Speci men Type: BLOOD SPECIMENOrdering Facility: [facility] Address: [address] [place] [address] Performed By: #### 5 7021-8 ####[facility]GR[facility]ERTLIA [id number] [place] [address] [place] Eosinophils/100 WBC (Bld) 2.6 % Normal [facility] Comment on above: Order Comment: Speci men Type: BLOOD SPECIMENOrdering Facility: [facility] Address: [address] [place] [address] Performed By: #### 5 7021-8 ####[facility]IT[facility] [id number] [place] [address] [place] Erythrocyte distribution width (RBC) [Ratio] 19.1 % High 11.5-15.0 [facility] Comment on above: Order Comment: Speci men Type: BLOOD SPECIMENOrdering Facility: [facility] Address: [address] [place] [address] Performed By: #### 5 7021-8 ####[facility] [id number] [place] [address] [place] Hematocrit (Bld) [Volume fraction] 26.3 % Low 39.0-51.0 [facility] Comment on above: Order Comment: Speci men Type: BLOOD SPECIMENOrdering Facility: [facility] Address: [address] [place] [address] Performed By: #### 5 7021-8 ####[facility] [id number] [place] [address] [place] Hemoglobin (Bld) [Mass/Vol] 8.7 g/dL Low 13.0-17.0 [facility] Comment on above: Order Comment: Speci men Type: BLOOD SPECIMENOrdering Facility: [facility] Address: [address] [place] [address] Performed By: #### 5 7021-8 ####[facility]CL[facility] [id number] [place] [address] [place] Immature granulocytes (Bld) [#/Vol] 10*3/uL Normal <0.10 [facility] Comment on above: Order Comment: Speci men Type: BLOOD SPECIMENOrdering Facility: [facility] Address: [address] [place] [address] Performed By: #### 5 7021-8 ####[facility] [id number] [place] [address] [place] Immature granulocytes/100 WBC (Bld) 0.4 % Normal [facility] Comment on above: Order Comment: Speci men Type: BLOOD SPECIMENOrdering Facility: [facility] Address: [address] [place] [address] Performed By: #### 5 7021-8 ####[facility] MILLWNCLIA [id number] [place] [address] [place] Lymphocytes (Bld) [#/Vol] 1.15 10*3/uL Normal 1.00-4.00 [facility] Comment on above: Order Comment: Speci men Type: BLOOD SPECIMENOrdering Facility: [facility] Address: [address] [place] [address] Performed By: #### 5 7021-8 ####[facility] HOSPITALWNCLIA [id number] [place] [address] [place] Lymphocytes/100 WBC (Bld) 21.0 % Normal [facility] Comment on above: Order Comment: Speci men Type: BLOOD SPECIMENOrdering Facility: [facility] Address: [address] [place] [address] Performed By: #### 5 7021-8 ####[facility]GNCLIA [id number] [place] [address] [place] MCH (RBC) [Entitic mass] 37.3 pg High 26.0-34.0 [facility] Comment on above: Order Comment: Speci men Type: BLOOD SPECIMENOrdering Facility: [facility] Address: [address] [place] [address] Performed By: #### 5 7021-8 ####[facility] MILLCHIPPEWA FALLSNCLIA [id number] [place] [address] [place] MCHC (RBC) [Mass/Vol] 33.1 g/dL Normal 30.5-36.0 [facility] Comment on above: Order Comment: Speci men Type: BLOOD SPECIMENOrdering Facility: [facility] Address: [address] [place] [address] Performed By: #### 5 7021-8 ####[facility]GNCLIA [id number] [place] [address] [place] MCV (RBC) [Entitic vol] 112.9 fL High 80.0-100.0 [facility] Comment on above: Order Comment: Speci men Type: BLOOD SPECIMENOrdering Facility: [facility] Address: [address] [place] [address] Performed By: #### 5 7021-8 ####[facility] [id number] [place] [address] [place] Monocytes (Bld) [#/Vol] 0.70 10*3/uL Normal <0.87 [facility] Comment on above: Order Comment: Speci men Type: BLOOD SPECIMENOrdering Facility: [facility] Address: [address] [place] [address] Performed By: #### 5 7021-8 ####[facility] [id number] [place] [address] [place] Monocytes/100 WBC (Bld) 12.8 % Normal [facility] Comment on above: Order Comment: Speci men Type: BLOOD SPECIMENOrdering Facility: [facility] Address: [address] [place] [address] Performed By: #### 5 7021-8 ####[facility] [id number] [place] [address] [place] Neutrophils (Bld) [#/Vol] 3.42 10*3/uL Normal 1.45-7.50 [facility] Comment on above: Order Comment: Speci men Type: BLOOD SPECIMENOrdering Facility: [facility] Address: [address] [place] [address] Performed By: #### 5 7021-8 ####[facility] PETERSBURGNCLI [id number] [place] [address] [place] Neutrophils/100 WBC (Bld) 62.3 % Normal [facility] Comment on above: Order Comment: Speci men Type: BLOOD SPECIMENOrdering Facility: [facility] Address: [address] [place] [address] Performed By: #### 5 7021-8 ####[facility] [id number] [place] [address] [place] Nucleated RBC (Bld) [#/Vol] 0.05 10*3/uL High <0.01 [facility] Comment on above: Order Comment: Speci men Type: BLOOD SPECIMENOrdering Facility: [facility] Address: [address] [place] [address] Performed By: #### 5 7021-8 ####[facility] [id number] [place] [address] [place] Nucleated RBC/100 WBC (Bld) [Ratio] 0.9 /100 WBC Normal [facility] Comment on above: Order Comment: Speci men Type: BLOOD SPECIMENOrdering Facility: [facility] Address: [address] [place] [address] Performed By: #### 5 7021-8 ####[facility] [id number] [place] [address] [place] Platelet mean volume (Bld) [Entitic vol] 11.9 fL Normal 9.0-12.7 [facility] Comment on above: Order Comment: Speci men Type: BLOOD SPECIMENOrdering Facility: [facility] Address: [address] [place] [address] Performed By: #### 5 7021-8 ####[facility] [id number] [place] [address] [place] Platelets (Bld) [#/Vol] 235 10*3/uL Normal 150-400 [facility] Comment on above: Order Comment: Speci men Type: BLOOD SPECIMENOrdering Facility: [facility] Address: [address] [place] [address] Performed By: #### 5 7021-8 ####[facility] PETERSBURGNCLIA [id number] [place] [address] [place] RBC (Bld) [#/Vol] 2.33 10*6/uL Low 4.20-6.00 [facility] Comment on above: Order Comment: Speci men Type: BLOOD SPECIMENOrdering Facility: [facility] Address: [address] [place] [address] Performed By: #### 5 7021-8 ####[facility] PETERSBURGNCA [id number] [place] [address] [place] WBC (Bld) [#/Vol] 5.48 10*3/uL Normal 3.70-11.00 [facility] Comment on above: Order Comment: Speci men Type: BLOOD SPECIMENOrdering Facility: [facility] Address: [address] [place] [address] Performed By: #### 5 7021-8 ####[facility]GNCLIA [id number] [place] [address] [place] Vit B12 SerPl-ncon 11-14-2 024 Cobalamin (Vitamin B12) [Mass/Vol] 754 pg/mL Normal 232-1245 [facility] Comment on above: Order Comment: Speci men Type: BLOOD SPECIMENOrdering Facility: [facility] Address: [address] [place] [address] Performed By: #### 2 132-9 ####[facility] LABCLIA [id number] [place] [address] [place] CBC W Auto Differential pane l (Bld)on 09-15-2024 Basophils (Bld) [#/Vol] 0.05 10*3/uL Normal <0.11 [facility] Comment on above: Order Comment: Speci men Type: BLOOD SPECIMENOrdering Facility: [facility] Address: [address] [place] [address] Performed By: #### 5 7021-8 ####[facility]GNCL[facility] [id number] [place] [address] [place] Basophils/100 WBC (Bld) 0.9 % Normal [facility] Comment on above: Order Comment: Speci men Type: BLOOD SPECIMENOrdering Facility: [facility] Address: [address] [place] [address] Performed By: #### 5 7021-8 ####[facility] HOSPITALLIA [id number] [place] [address] [place] Differential cell count method Nom (Bld) Auto Normal [facility] Comment on above: Order Comment: Speci men Type: BLOOD SPECIMENOrdering Facility: [facility] Address: [address] [place] [address] Performed By: #### 5 7021-8 ####[facility] HOSPITALLIA [id number] [place] [address] [place] Eosinophils (Bld) [#/Vol] 0.09 10*3/uL Normal <0.46 [facility] Comment on above: Order Comment: Speci men Type: BLOOD SPECIMENOrdering Facility: [facility] Address: [address] [place] [address] Performed By: #### 5 7021-8 ####[facility]GNCLIA [id number] [place] [address] [place] Eosinophils/100 WBC (Bld) 1.7 % Normal [facility] Comment on above: Order Comment: Speci men Type: BLOOD SPECIMENOrdering Facility: [facility] Address: [address] [place] [address] Performed By: #### 5 7021-8 ####[facility]GNCLIA [id number] [place] [address] [place] Erythrocyte distribution width (RBC) [Ratio] 18.6 % High 11.5-15.0 [facility] Comment on above: Order Comment: Speci men Type: BLOOD SPECIMENOrdering Facility: [facility] Address: [address] [place] [address] Performed By: #### 5 7021-8 ####[facility]GNCLIA [id number] [place] [address] [place] Hematocrit (Bld) [Volume fraction] 25.6 % Low 39.0-51.0 [facility] Comment on above: Order Comment: Speci men Type: BLOOD SPECIMENOrdering Facility: [facility] Address: [address] [place] [address] Performed By: #### 5 7021-8 ####[facility] [id number] [place] [address] [place] Hemoglobin (Bld) [Mass/Vol] 8.5 g/dL Low 13.0-17.0 [facility] Comment on above: Order Comment: Speci men Type: BLOOD SPECIMENOrdering Facility: [facility] Address: [address] [place] [address] Performed By: #### 5 7021-8 ####[facility]GNCLIA [id number] [place] [address] [place] Immature granulocytes (Bld) [#/Vol] 0.03 10*3/uL Normal <0.10 [facility] Comment on above: Order Comment: Speci men Type: BLOOD SPECIMENOrdering Facility: [facility] Address: [address] [place] [address] Performed By: #### 5 7021-8 ####[facility]GNCLIA [id number] [place] [address] [place] Immature granulocytes/100 WBC (Bld) 0.6 % Normal [facility] Comment on above: Order Comment: Speci men Type: BLOOD SPECIMENOrdering Facility: [facility] Address: [address] [place] [address] Performed By: #### 5 7021-8 ####[facility] RUBENNCRADHA [id number] [place] [address] [place] Lymphocytes (Bld) [#/Vol] 1.11 10*3/uL Normal 1.00-4.00 [facility] Comment on above: Order Comment: Speci men Type: BLOOD SPECIMENOrdering Facility: [facility] Address: [address] [place] [address] Performed By: #### 5 7021-8 ####[facility] PETERSBURGROBERTManuel [id number] [place] [address] [place] Lymphocytes/100 WBC (Bld) 20.9 % Normal [facility] Comment on above: Order Comment: Speci men Type: BLOOD SPECIMENOrdering Facility: [facility] Address: [address] [place] [address] Performed By: #### 5 7021-8 ####[facility] JONHCHIPPEWA FALLSNCCONSTANCEManuel [id number] [place] [address] [place] MCH (RBC) [Entitic mass] 37.1 pg High 26.0-34.0 [facility] Comment on above: Order Comment: Speci men Type: BLOOD SPECIMENOrdering Facility: [facility] Address: [address] [place] [address] Performed By: #### 5 7021-8 ####[facility] PETERS[facility]GNCLIA [id number] [place] [address] [place] MCHC (RBC) [Mass/Vol] 33.2 g/dL Normal 30.5-36.0 [facility] Comment on above: Order Comment: Speci men Type: BLOOD SPECIMENOrdering Facility: [facility] Address: [address] [place] [address] Performed By: #### 5 7021-8 ####[facility] JONHCHIPPEWA FALLSNCLIA [id number] [place] [address] [place] MCV (RBC) [Entitic vol] 111.8 fL High 80.0-100.0 [facility] Comment on above: Order Comment: Speci men Type: BLOOD SPECIMENOrdering Facility: [facility] Address: [address] [place] [address] Performed By: #### 5 7021-8 ####[facility] HOSPITALLIA [id number] [place] [address] [place] Monocytes (Bld) [#/Vol] 0.68 10*3/uL Normal <0.87 [facility] Comment on above: Order Comment: Speci men Type: BLOOD SPECIMENOrdering Facility: [facility] Address: [address] [place] [address] Performed By: #### 5 7021-8 ####[facility] [id number] [place] [address] [place] Monocytes/100 WBC (Bld) 12.8 % Normal [facility] Comment on above: Order Comment: Speci men Type: BLOOD SPECIMENOrdering Facility: [facility] Address: [address] [place] [address] Performed By: #### 5 7021-8 ####[facility] [id number] [place] [address] [place] Neutrophils (Bld) [#/Vol] 3.36 10*3/uL Normal 1.45-7.50 [facility] Comment on above: Order Comment: Speci men Type: BLOOD SPECIMENOrdering Facility: [facility] Address: [address] [place] [address] Performed By: #### 5 7021-8 ####[facility] HOSPITALLIA [id number] [place] [address] [place] Neutrophils/100 WBC (Bld) 63.1 % Normal [facility] Comment on above: Order Comment: Speci men Type: BLOOD SPECIMENOrdering Facility: [facility] Address: [address] [place] [address] Performed By: #### 5 7021-8 ####[facility] [id number] [place] [address] [place] Nucleated RBC (Bld) [#/Vol] 0.05 10*3/uL High <0.01 [facility] Comment on above: Order Comment: Speci men Type: BLOOD SPECIMENOrdering Facility: [facility] Address: [address] [place] [address] Performed By: #### 5 7021-8 ####[facility] [id number] [place] [address] [place] Nucleated RBC/100 WBC (Bld) [Ratio] 0.9 /100 WBC Normal [facility] Comment on above: Order Comment: Speci men Type: BLOOD SPECIMENOrdering Facility: [facility] Address: [address] [place] [address] Performed By: #### 5 7021-8 ####[facility] PETERSBURGNCLI [id number] [place] [address] [place] Platelet mean volume (Bld) [Entitic vol] 10.9 fL Normal 9.0-12.7 [facility] Comment on above: Order Comment: Speci men Type: BLOOD SPECIMENOrdering Facility: [facility] Address: [address] [place] [address] Performed By: #### 5 7021-8 ####[facility] PETERSBURGNCLIA [id number] [place] [address] [place] Platelets (Bld) [#/Vol] 261 10*3/uL Normal 150-400 [facility] Comment on above: Order Comment: Speci men Type: BLOOD SPECIMENOrdering Facility: [facility] Address: [address] [place] [address] Performed By: #### 5 7021-8 ####[facility] JONHWNCLIA [id number] [place] [address] [place] RBC (Bld) [#/Vol] 2.29 10*6/uL Low 4.20-6.00 [facility] Comment on above: Order Comment: Speci men Type: BLOOD SPECIMENOrdering Facility: [facility] Address: [address] [place] [address] Performed By: #### 5 7021-8 ####[facility] PETERS[facility]GNCLIA [id number] [place] [address] [place] WBC (Bld) [#/Vol] 5.32 10*3/uL Normal 3.70-11.00 [facility] Comment on above: Order Comment: Speci men Type: BLOOD SPECIMENOrdering Facility: [facility] Address: [address] [place] [address] Performed By: #### 5 7021-8 ####[facility] PETERSBURGNCLIA [id number] [place] [address] [place] CNOVSPon 09-15-2024 CNOVSP Normal [facility] CNPNon 09-15-2024 CNPN Normal [facility] Comprehensive metabolic 2000 panelon 09-15-2024 Albumin [Mass/Vol] 4.1 g/dL Normal 3.9-4.9 [facility] Comment on above: Order Comment: Speci men Type: BLOOD SPECIMENOrdering Facility: [facility] Address: [address] [place], [place] [address] Performed By: #### 2 4323-8 ####[facility]OSPITALWNCLIA [id number] [place] [address] [place] ALP [Catalytic activity/Vol] 81 U/L Normal 38-113 [facility] Comment on above: Order Comment: Speci men Type: BLOOD SPECIMENOrdering Facility: [facility] Address: [address] [place], [place] [address] Performed By: #### 2 4323-8 ####[facility] MILLTOWNCLIA [id number] [place] [address] [place] ALT [Catalytic activity/Vol] 14 U/L Normal 10-54 [facility] Comment on above: Order Comment: Speci men Type: BLOOD SPECIMENOrdering Facility: [facility] Address: [address] [place] [address] Performed By: #### 2 4323-8 ####[facility] MILLWNCLIA [id number] [place] [address] [place] Anion gap [Moles/Vol] 9 mmol/L Normal 8-15 [facility] Comment on above: Order Comment: Speci men Type: BLOOD SPECIMENOrdering Facility: [facility] Address: [address] [place] [address] Performed By: #### 2 4323-8 ####[facility] HOSPITALLIA [id number] [place] [address] [place] AST [Catalytic activity/Vol] 23 U/L Normal 14-40 [facility] Comment on above: Order Comment: Speci men Type: BLOOD SPECIMENOrdering Facility: [facility] Address: [address] [place] [address] Performed By: #### 2 4323-8 ####[facility] MARVAMOUNT ASCUTNEY HOSPITALNCLIA [id number] [place] [address] [place] Bilirubin [Mass/Vol] 1.5 mg/dL High 0.2-1.3 [facility] Comment on above: Order Comment: Speci men Type: BLOOD SPECIMENOrdering Facility: [facility] Address: [address] [place] [address] Performed By: #### 2 4323-8 ####[facility] MILLTOWNCLIA [id number] [place] [address] [place] Calcium [Mass/Vol] 9.1 mg/dL Normal 8.5-10.2 [facility] Comment on above: Order Comment: Speci men Type: BLOOD SPECIMENOrdering Facility: [facility] Address: [address] [place] [address] Performed By: #### 2 4323-8 ####[facility] MILLTOWNCLIA [id number] [place] [address] [place] Chloride [Moles/Vol] 100 mmol/L Normal 98-107 [facility] Comment on above: Order Comment: Speci men Type: BLOOD SPECIMENOrdering Facility: [facility] Address: [address] [place] [address] Performed By: #### 2 4323-8 ####[facility] MILLTOWNCLIA [id number] [place] [address] [place] CO2 [Moles/Vol] 27 mmol/L Normal 22-30 [facility] Comment on above: Order Comment: Speci men Type: BLOOD SPECIMENOrdering Facility: [facility] Address: [address] [place] [address] Performed By: #### 2 4323-8 ####[facility] MILLTOWNCLIA [id number] [place] [address] [place] Creatinine [Mass/Vol] 1.02 mg/dL Normal 0.73-1.22 [facility] Comment on above: Order Comment: Speci men Type: BLOOD SPECIMENOrdering Facility: [facility] Address: [address] [place] [address] Performed By: #### 2 4323-8 ####[facility] MILLTOWNCLIA [id number] [place] [address] [place] Creatinine and Glomerular filtration rate.predicted panel (S/P/Bld) 71 mL/min/1.73m??? Normal >=60 [facility] Comment on above: Order Comment: Elfego gilbert Type: BLOOD SPECIMENOrdering Facility: [facility] Address: [address] [place] [address] Result Comment: Concepción mated Glomerular Filtration Rate (eGFR) is calculated using the 2020 CKD-EPI creatinine equation. This equation utilizes serum creatinine, sex, and age as parameters. The creatinine assay has traceable calibration to isotope dilution-mass spectrometry. Refer to KDIGO guidelines for clinical interpretation. In patients with unstable renal function, e.g. those with acute kidney injury, the eGFR may not accurately reflect actual GFR. Performed By: #### 2 4323-8 ####[facility] [id number] [place] [address] [place] Glucose [Mass/Vol] 94 mg/dL Normal 74-99 [facility] Comment on above: Order Comment: Elfego gilbert Type: BLOOD SPECIMENOrdering Facility: [facility] Address: [address] [place] [address] Result Comment: The [place] Diabetes Association (ADA) provides guidance for cutoff values for fasting glucose and random glucose. The ADA defines fasting as no caloric intake for at least 8 hours. Fasting plasma glucose results between 100 to 125 mg/dL indicate increased risk for diabetes (prediabetes).Fasting plasma glucose results greater than or equal to 126 mg/dL meet the criteria for diagnosis of diabetes. In the absence of unequivocal hyperglycemia, results should be confirmed by repeat testing. In a patient with classic symptoms of hyperglycemia or hyperglycemic crisis, random plasma glucose results greater than or equal to 200 mg/dL meet the criteria for diagnosis of diabetes.Reference: Standards of Medical Care in Diabetes 2016, [place] [employer] Association. Diabetes Care. 2016.39(Suppl 1). Performed By: #### 2 4323-8 ####[facility] [id number] [place] [address] [place] Potassium [Moles/Vol] 4.4 mmol/L Normal 3.7-5.1 [facility] Comment on above: Order Comment: Speci men Type: BLOOD SPECIMENOrdering Facility: [facility] Address: [address] [place] [address] Performed By: #### 2 4323-8 ####[facility] JONHWNCLIA [id number] [place] [address] [place] Protein [Mass/Vol] 6.4 g/dL Normal 6.3-8.0 [facility] Comment on above: Order Comment: Speci men Type: BLOOD SPECIMENOrdering Facility: [facility] Address: [address] [place] [address] Performed By: #### 2 4323-8 ####[facility]BURGNCLIA [id number] [place] [address] [place] Sodium [Moles/Vol] 136 mmol/L Normal 136-144 [facility] Comment on above: Order Comment: Speci men Type: BLOOD SPECIMENOrdering Facility: [facility] Address: [address] [place] [address] Performed By: #### 2 4323-8 ####[facility] PET[facility]GNCLIA [id number] [place] [address] [place] Urea nitrogen [Mass/Vol] 24 mg/dL Normal 9-24 [facility] Comment on above: Order Comment: Speci men Type: BLOOD SPECIMENOrdering Facility: [facility] Address: [address] [place] [address] Performed By: #### 2 4323-8 ####[facility]GNCLIA [id number] [place] [address] [place] Ferritin SerPl-mCncon 2023 Ferritin [Mass/Vol] 453.0 ng/mL Normal 30.3-565.7 [facility] Comment on above: Order Comment: Speci men Type: BLOOD SPECIMENOrdering Facility: [facility] Address: [address] [place] [id number] Performed By: #### 2 4331-1 ####[facility] LABCLIA [id number] [address] STATES OF [facility] [id number] [place] [address] [place]#### 2276-4, 57794-3 ####[facility] LABCLIA [id number] [place] [id number] [place] Iron and Iron binding capaci ty panelon 09-15-2024 Iron [Mass/Vol] 134 ug/dL Normal 41-186 [facility] Comment on above: Order Comment: Speci men Type: BLOOD SPECIMENOrdering Facility: [facility] Address: [address] [place] [address] Performed By: #### 2 4331-1 ####[facility] LABCLIA [id number] [address] STATES [facility] [id number] [place] [address] [place]#### 2276-4, 38726-2 ####[facility] LABCLIA [id number] [place] [address] [place] Iron binding capacity [Mass/Vol] 166 ug/dL Low 232-386 [facility] Comment on above: Order Comment: Speci men Type: BLOOD SPECIMENOrdering Facility: [facility] Address: [facility] [place] [id number] Performed By: #### 2 4331-1 ####[facility] LABCLIA [id number] [place] [id number] [place] [facility] [id number] [place] [address] [place]#### 2276-4, 43104-3 ####[facility] LABCLIA [id number] [place] [address] [place] Iron/TIBC [Molar ratio] 80.7 % High 15.0-57.0 [facility] Comment on above: Order Comment: Speci men Type: BLOOD SPECIMENOrdering Facility: [facility] Address: [address] [place] [address] Performed By: #### 2 4331-1 ####[facility] LABCLIA [id number] [id number] [place] [address] [place]#### 2276-4, 64576-2 ####[facility] LABIA [id number] [place] [address] [place] Lipid 1996 panelon 4 Cholesterol [Mass/Vol] 86 mg/dL Normal <200 [facility] Comment on above: Order Comment: Speci men Type: BLOOD SPECIMENOrdering Facility: [facility] Address: [address] [place] [address] Result Comment: <200 mg/dL, Desirable 200-239 mg/dL, Borderline high>239 mg/dL, High Performed By: #### 2 4331-1 ####[facility] LABCLIA [id number] [address] STATES OF [facility] [id number] [place] [address] [place]#### 2276-4, 44916-3 ####[facility] LABCLIA [id number] [place] [id number] [place] Cholesterol in HDL [Mass/Vol] 53 mg/dL Normal >39 [facility] Comment on above: Order Comment: Speci men Type: BLOOD SPECIMENOrdering Facility: [facility] Address: [address] [place] [address] Result Comment: 40-5 9 mg/dL, Acceptable>59 mg/dL, High: Negative risk factor for coronary heart disease<40 mg/dL, Low: Positive risk factor for coronary heart disease Performed By: #### 2 4331-1 ####[facility] LABCLIA [id number] [place] [address] [place] [id number] [place] [address] [place]#### 2276-4, 10093-3 ####[facility] LABCLIA [id number] [place] [address] [place] Cholesterol in LDL [Mass/Vol] 26 mg/dL Normal <100 [facility] Comment on above: Order Comment: Speci men Type: BLOOD SPECIMENOrdering Facility: [facility] Address: [address] [place] [address] Result Comment: <100 mg/dL, Optimal 100-129 mg/dL, Near optimal/above optimal 130-159 mg/dL, Borderline high 160-189 mg/dL, High>189 mg/dL, Very highSecondary prevention optimal LDL Cholesterol levels are recommended to be < 70 mg/dL Performed By: #### 2 4331-1 ####[facility] LABCLIA [id number] [place] [id number] [place] [id number] [place] [address] [place]#### 2276-4, 17207-2 ####[facility] LABCLIA [id number] [place] [id number] [place] Cholesterol in LDL/Cholesterol in HDL [Mass ratio] 0.49 {ratio} Normal <2.54 [facility] Comment on above: Order Comment: Speci men Type: BLOOD SPECIMENOrdering Facility: [facility] Address: [address] [place] [address] Result Comment: Katie barrientos:1. National Cholesterol Education Program ATP III Guideline At-A-Glance Quick Desk Reference: National Heart, Lung, and Blood Emmalena. National Institutes of Health. 2001: NIH Publication No. 01-3305.2. An International Atherosclerosis Society position paper: global recommendations for the management of dyslipidemia: executive summary, Atherosclerosis. 2014: 232(2):410-413. Performed By: #### 2 4331-1 ####[facility] LABCLIA [id number] [address] [id number] [place] [address] [place]#### 2276-4, 07269-6 ####[facility] LABCLIA [id number] [place] [address] [place] Cholesterol in VLDL [Mass/Vol] 7 mg/dL Normal <30 [facility] Comment on above: Order Comment: Speci men Type: BLOOD SPECIMENOrdering Facility: [facility] Address: [address] [place] [address] Performed By: #### 2 4331-1 ####[facility] LABCLIA [id number] [address] [id number] [place] [address] [place]#### 2276-4, 45057-5 ####[facility] LABCLIA [id number] [place] [address] [place] Cholesterol non HDL [Mass/Vol] 33 mg/dL Normal <130 [facility] Comment on above: Order Comment: Speci men Type: BLOOD SPECIMENOrdering Facility: [facility] Address: [address] [place] [address] Result Comment: <130 mg/dL, Optimal 130-159 mg/dL, Near optimal/above optimal 160-189 mg/dL, Borderline high 190-219 mg/dL, High>219 mg/dL, Very highSecondary prevention optimal non HDL Cholesterol levels are recommended to be <100 mg/dL Performed By: #### 2 4331-1 ####[facility] LABCLIA [id number] [address] STATES [facility] [id number] [place] [address] [place]#### 2276-4, 05267-5 ####[facility] LABCLIA [id number] [place] [address] [place] Cholesterol.total/Chol esterol in HDL [Mass ratio] 1.62 {ratio} Normal <5.10 [facility] Comment on above: Order Comment: Speci men Type: BLOOD SPECIMENOrdering Facility: [facility] Address: [address] [place] [address] Performed By: #### 2 4331-1 ####[facility] LABCLIA [id number] [address] [id number] [place] [address] [place]#### 2276-4, 48528-8 ####[facility] LABCLIA [id number] [place] [id number] [place] FASTING TIME 12 hrs Normal [facility] Comment on above: Order Comment: Speci men Type: BLOOD SPECIMENOrdering Facility: [facility] Address: [address] [place] [address] Performed By: #### 2 4331-1 ####[facility] LABCLIA [id number] [place] [address] [place] AMERICAPAM [facility]LEA [id number] [place] [address] [place]#### 2276-4, 14554-5 ####[facility] LABCLIA [id number] [place] [address] [place] Triglyceride [Mass/Vol] 33 mg/dL Normal <150 [facility] Comment on above: Order Comment: Speci men Type: BLOOD SPECIMENOrdering Facility: [facility] Address: [address] [place] [address] Result Comment: <150 mg/dL, Normal 150-199 mg/dL, Borderline high 200-499 mg/dL, High>499 mg/dL, Very high Performed By: #### 2 4331-1 ####[facility] LABCLIA [id number] [place] [address] [place] [id number] [place] [address] [place]#### 2276-4, 30117-8 ####[facility] LABCLIA [id number] [place] [address] [place] CNPTOUTREACHon 08-30-2024 CNPTOUTREACH Normal [facility] CNPNon 08-24-2024 CNPN Normal [facility] CBC W Auto Differential pane l (Bld)on 08-22-2024 Basophils (Bld) [#/Vol] 0.05 10*3/uL Normal <0.11 [facility] Comment on above: Order Comment: Speci men Type: BLOOD SPECIMENOrdering Facility: [facility] Address: [address] [place] [address] Performed By: #### 5 7021-8 ####[facility] [id number] [place] [address] [place] Basophils/100 WBC (Bld) 0.9 % Normal [facility] Comment on above: Order Comment: Speci men Type: BLOOD SPECIMENOrdering Facility: [facility] Address: [address] [place] [address] Performed By: #### 5 7021-8 ####[facility]PITALLIA [id number] [place] [address] [place] Differential cell count method Nom (Bld) Auto Normal [facility] Comment on above: Order Comment: Speci men Type: BLOOD SPECIMENOrdering Facility: [facility] Address: [address] [place] [address] Performed By: #### 5 7021-8 ####[facility]A [id number] [place] [address] [place] Eosinophils (Bld) [#/Vol] 0.19 10*3/uL Normal <0.46 [facility] Comment on above: Order Comment: Speci men Type: BLOOD SPECIMENOrdering Facility: [facility] Address: [address] [place] [address] Performed By: #### 5 7021-8 ####[facility]LEA [id number] [place] [address] [place] Eosinophils/100 WBC (Bld) 3.3 % Normal [facility] Comment on above: Order Comment: Speci men Type: BLOOD SPECIMENOrdering Facility: [facility] Address: [address] [place] [address] Performed By: #### 5 7021-8 ####[facility] PETERSBURGNCA [id number] [place] [address] [place] Erythrocyte distribution width (RBC) [Ratio] 17.2 % High 11.5-15.0 [facility] Comment on above: Order Comment: Speci men Type: BLOOD SPECIMENOrdering Facility: [facility] Address: [address] [place] [address] Performed By: #### 5 7021-8 ####[facility] JONHCHIPPEWA FALLSNCLIA [id number] [place] [address] [place] Hematocrit (Bld) [Volume fraction] 26.6 % Low 39.0-51.0 [facility] Comment on above: Order Comment: Speci men Type: BLOOD SPECIMENOrdering Facility: [facility] Address: [address] [place] [address] Performed By: #### 5 7021-8 ####[facility] HOSPITALLIA [id number] [place] [address] [place] Hemoglobin (Bld) [Mass/Vol] 9.0 g/dL Low 13.0-17.0 [facility] Comment on above: Order Comment: Speci men Type: BLOOD SPECIMENOrdering Facility: [facility] Address: [address] [place] [address] Performed By: #### 5 7021-8 ####[facility]A [id number] [place] [address] [place] Immature granulocytes (Bld) [#/Vol] 10*3/uL Normal <0.10 [facility] Comment on above: Order Comment: Speci men Type: BLOOD SPECIMENOrdering Facility: [facility] Address: [address] [place] [address] Performed By: #### 5 7021-8 ####[facility] HOSPITALLIA [id number] [place] [address] [place] Immature granulocytes/100 WBC (Bld) 0.2 % Normal [facility] Comment on above: Order Comment: Speci men Type: BLOOD SPECIMENOrdering Facility: [facility] Address: [address] [place] [address] Performed By: #### 5 7021-8 ####[facility]OSPITALLIA [id number] [place] [address] [place] Lymphocytes (Bld) [#/Vol] 1.24 10*3/uL Normal 1.00-4.00 [facility] Comment on above: Order Comment: Speci men Type: BLOOD SPECIMENOrdering Facility: [facility] Address: [address] [place] [address] Performed By: #### 5 7021-8 ####[facility] [id number] [place] [address] [place] Lymphocytes/100 WBC (Bld) 21.8 % Normal [facility] Comment on above: Order Comment: Speci men Type: BLOOD SPECIMENOrdering Facility: [facility] Address: [address] [place] [address] Performed By: #### 5 7021-8 ####[facility] [id number] [place] [address] [place] MCH (RBC) [Entitic mass] 37.5 pg High 26.0-34.0 [facility] Comment on above: Order Comment: Speci men Type: BLOOD SPECIMENOrdering Facility: [facility] Address: [address] [place] [address] Performed By: #### 5 7021-8 ####[facility]BURGNCLI [id number] [place] [address] [place] MCHC (RBC) [Mass/Vol] 33.8 g/dL Normal 30.5-36.0 [facility] Comment on above: Order Comment: Speci men Type: BLOOD SPECIMENOrdering Facility: [facility] Address: [address] [place] [address] Performed By: #### 5 7021-8 ####[facility]GNCLI [id number] [place] [address] [place] MCV (RBC) [Entitic vol] 110.8 fL High 80.0-100.0 [facility] Comment on above: Order Comment: Speci men Type: BLOOD SPECIMENOrdering Facility: [facility] Address: [address] [place] [address] Performed By: #### 5 7021-8 ####[facility] JONHJEAN [id number] [place] [address] [place] Monocytes (Bld) [#/Vol] 0.79 10*3/uL Normal <0.87 [facility] Comment on above: Order Comment: Speci men Type: BLOOD SPECIMENOrdering Facility: [facility] Address: [address] [place] [address] Performed By: #### 5 7021-8 ####[facility]OBERTSEVI[facility] [id number] [place] [address] [place] Monocytes/100 WBC (Bld) 13.9 % Normal [facility] Comment on above: Order Comment: Speci men Type: BLOOD SPECIMENOrdering Facility: [facility] Address: [address] [place] [address] Performed By: #### 5 7021-8 ####[facility] [id number] [place] [address] [place] Neutrophils (Bld) [#/Vol] 3.40 10*3/uL Normal 1.45-7.50 [facility] Comment on above: Order Comment: Speci men Type: BLOOD SPECIMENOrdering Facility: [facility] Address: [address] [place] [address] Performed By: #### 5 7021-8 ####[facility] PET[facility]BURGNCA [id number] [place] [address] [place] Neutrophils/100 WBC (Bld) 59.9 % Normal [facility] Comment on above: Order Comment: Speci men Type: BLOOD SPECIMENOrdering Facility: [facility] Address: [address] [place] [address] Performed By: #### 5 7021-8 ####[facility] PET[facility]BURGNCLIA [id number] [place] [address] [place] Nucleated RBC (Bld) [#/Vol] 0.03 10*3/uL High <0.01 [facility] Comment on above: Order Comment: Speci men Type: BLOOD SPECIMENOrdering Facility: [facility] Address: [address] [place] [address] Performed By: #### 5 7021-8 ####[facility] [id number] [place] [address] [place] Nucleated RBC/100 WBC (Bld) [Ratio] 0.5 /100 WBC Normal [facility] Comment on above: Order Comment: Speci men Type: BLOOD SPECIMENOrdering Facility: [facility] Address: [address] [place] [address] Performed By: #### 5 7021-8 ####[facility] HOSPITALLIA [id number] [place] [address] [place] Platelet mean volume (Bld) [Entitic vol] 10.8 fL Normal 9.0-12.7 [facility] Comment on above: Order Comment: Speci men Type: BLOOD SPECIMENOrdering Facility: [facility] Address: [address] [place] [address] Performed By: #### 5 7021-8 ####[facility] HOSPITALLIA [id number] [place] [address] [place] Platelets (Bld) [#/Vol] 255 10*3/uL Normal 150-400 [facility] Comment on above: Order Comment: Speci men Type: BLOOD SPECIMENOrdering Facility: [facility] Address: [address] [place] [address] Performed By: #### 5 7021-8 ####[facility] HOSPITALLI [id number] [place] [address] [place] RBC (Bld) [#/Vol] 2.40 10*6/uL Low 4.20-6.00 [facility] Comment on above: Order Comment: Speci men Type: BLOOD SPECIMENOrdering Facility: [facility] Address: [address] [place] [address] Performed By: #### 5 7021-8 ####[facility] PET[facility]GKOSTAA [id number] [place] [address] [place] WBC (Bld) [#/Vol] 5.68 10*3/uL Normal 3.70-11.00 [facility] Comment on above: Order Comment: Speci men Type: BLOOD SPECIMENOrdering Facility: [facility] Address: [address] [place] [address] Performed By: #### 5 7021-8 ####[facility]ACKSONVILLEManuel [id number] [place] [address] [place] CNPTOUTREACHon 08-02-2024 CNPTOUTREACH Normal [facility] CNOVon 07-29-2024 CNOV Normal [facility] CNPNon 07-22-2024 CNPN Normal [facility] CBC W Auto Differential pane l (Bld)on 07-21-2024 Basophils (Bld) [#/Vol] 0.05 10*3/uL Normal <0.11 [facility] Comment on above: Order Comment: Speci men Type: BLOOD SPECIMENOrdering Facility: [facility] Address: [address] [place] [address] Performed By: #### 5 7021-8 ####[facility]GNCLIA [id number] [place] [address] [place] Basophils/100 WBC (Bld) 1.0 % Normal [facility] Comment on above: Order Comment: Speci men Type: BLOOD SPECIMENOrdering Facility: [facility] Address: [address] [place] [address] Performed By: #### 5 7021-8 ####[facility] JONHWilliamsROBERTLIA [id number] [place] [address] [place] Differential cell count method Nom (Bld) Auto Normal [facility] Comment on above: Order Comment: Speci men Type: BLOOD SPECIMENOrdering Facility: [facility] Address: [address] [place] [address] Performed By: #### 5 7021-8 ####[facility]GROBERTLIA [id number] [place] [address] [place] Eosinophils (Bld) [#/Vol] 0.13 10*3/uL Normal <0.46 [facility] Comment on above: Order Comment: Speci men Type: BLOOD SPECIMENOrdering Facility: [facility] Address: [address] [place] [address] Performed By: #### 5 7021-8 ####[facility] PET[facility]GKOSTAA [id number] [place] [address] [place] Eosinophils/100 WBC (Bld) 2.6 % Normal [facility] Comment on above: Order Comment: Speci men Type: BLOOD SPECIMENOrdering Facility: [facility] Address: [address] [place] [address] Performed By: #### 5 7021-8 ####[facility]GROBERTLIA [id number] [place] [address] [place] Erythrocyte distribution width (RBC) [Ratio] 16.0 % High 11.5-15.0 [facility] Comment on above: Order Comment: Speci men Type: BLOOD SPECIMENOrdering Facility: [facility] Address: [address] [place] [address] Performed By: #### 5 7021-8 ####[facility] PET[facility]BURGNCLIA [id number] [place] [address] [place] Hematocrit (Bld) [Volume fraction] 26.2 % Low 39.0-51.0 [facility] Comment on above: Order Comment: Speci men Type: BLOOD SPECIMENOrdering Facility: [facility] Address: [address] [place] [address] Performed By: #### 5 7021-8 ####[facility] [id number] [place] [address] [place] Hemoglobin (Bld) [Mass/Vol] 9.0 g/dL Low 13.0-17.0 [facility] Comment on above: Order Comment: Speci men Type: BLOOD SPECIMENOrdering Facility: [facility] Address: [address] [place] [address] Performed By: #### 5 7021-8 ####[facility] [id number] [place] [address] [place] Immature granulocytes (Bld) [#/Vol] 10*3/uL Normal <0.10 [facility] Comment on above: Order Comment: Speci men Type: BLOOD SPECIMENOrdering Facility: [facility] Address: [address] [place] [address] Performed By: #### 5 7021-8 ####[facility] [id number] [place] [address] [place] Immature granulocytes/100 WBC (Bld) 0.2 % Normal [facility] Comment on above: Order Comment: Speci men Type: BLOOD SPECIMENOrdering Facility: [facility] Address: [address] [place] [address] Performed By: #### 5 7021-8 ####[facility]GNCLI [id number] [place] [address] [place] Lymphocytes (Bld) [#/Vol] 1.14 10*3/uL Normal 1.00-4.00 [facility] Comment on above: Order Comment: Speci men Type: BLOOD SPECIMENOrdering Facility: [facility] Address: [address] [place] [address] Performed By: #### 5 7021-8 ####[facility] JONHJEAN [id number] [place] [address] [place] Lymphocytes/100 WBC (Bld) 22.6 % Normal [facility] Comment on above: Order Comment: Speci men Type: BLOOD SPECIMENOrdering Facility: [facility] Address: [address] [place] [address] Performed By: #### 5 7021-8 ####[facility] PETERSBURGNCRADHA [id number] [place] [address] [place] MCH (RBC) [Entitic mass] 38.6 pg High 26.0-34.0 [facility] Comment on above: Order Comment: Speci men Type: BLOOD SPECIMENOrdering Facility: [facility] Address: [address] [place] [address] Performed By: #### 5 7021-8 ####[facility] PET[facility]GNCA [id number] [place] [address] [place] MCHC (RBC) [Mass/Vol] 34.4 g/dL Normal 30.5-36.0 [facility] Comment on above: Order Comment: Speci men Type: BLOOD SPECIMENOrdering Facility: [facility] Address: [address] [place] [address] Performed By: #### 5 7021-8 ####[facility]BURGNCLIA [id number] [place] [address] [place] MCV (RBC) [Entitic vol] 112.4 fL High 80.0-100.0 [facility] Comment on above: Order Comment: Speci men Type: BLOOD SPECIMENOrdering Facility: [facility] Address: [address] [place] [address] Performed By: #### 5 7021-8 ####[facility] MILLTOWNCLIA [id number] [place] [address] [place] Monocytes (Bld) [#/Vol] 0.72 10*3/uL Normal <0.87 [facility] Comment on above: Order Comment: Speci men Type: BLOOD SPECIMENOrdering Facility: [facility] Address: [address] [place] [address] Performed By: #### 5 7021-8 ####[facility] HOSPITALLIA [id number] [place] [address] [place] Monocytes/100 WBC (Bld) 14.3 % Normal [facility] Comment on above: Order Comment: Speci men Type: BLOOD SPECIMENOrdering Facility: [facility] Address: [address] [place] [address] Performed By: #### 5 7021-8 ####[facility]OS[facility]ITALLIA [id number] [place] [address] [place] Neutrophils (Bld) [#/Vol] 2.99 10*3/uL Normal 1.45-7.50 [facility] Comment on above: Order Comment: Speci men Type: BLOOD SPECIMENOrdering Facility: [facility] Address: [address] [place] [address] Performed By: #### 5 7021-8 ####[facility]ITALLIA [id number] [place] [address] [place] Neutrophils/100 WBC (Bld) 59.3 % Normal [facility] Comment on above: Order Comment: Speci men Type: BLOOD SPECIMENOrdering Facility: [facility] Address: [address] [place] [address] Performed By: #### 5 7021-8 ####[facility]GNCLIA [id number] [place] [address] [place] Nucleated RBC (Bld) [#/Vol] 0.03 10*3/uL High <0.01 [facility] Comment on above: Order Comment: Speci men Type: BLOOD SPECIMENOrdering Facility: [facility] Address: [address] [place] [address] Performed By: #### 5 7021-8 ####[facility] [id number] [place] [address] [place] Nucleated RBC/100 WBC (Bld) [Ratio] 0.6 /100 WBC Normal [facility] Comment on above: Order Comment: Speci men Type: BLOOD SPECIMENOrdering Facility: [facility] Address: [address] [place] [address] Performed By: #### 5 7021-8 ####[facility] [id number] [place] [address] [place] Platelet mean volume (Bld) [Entitic vol] 10.5 fL Normal 9.0-12.7 [facility] Comment on above: Order Comment: Speci men Type: BLOOD SPECIMENOrdering Facility: [facility] Address: [address] [place] [address] Performed By: #### 5 7021-8 ####[facility] PET[facility]GNCLIA [id number] [place] [address] [place] Platelets (Bld) [#/Vol] 245 10*3/uL Normal 150-400 [facility] Comment on above: Order Comment: Speci men Type: BLOOD SPECIMENOrdering Facility: [facility] Address: [address] [place] [address] Performed By: #### 5 7021-8 ####[facility]GNCLIA [id number] [place] [address] [place] RBC (Bld) [#/Vol] 2.33 10*6/uL Low 4.20-6.00 [facility] Comment on above: Order Comment: Speci men Type: BLOOD SPECIMENOrdering Facility: [facility] Address: [address] [place] [address] Performed By: #### 5 7021-8 ####[facility] JONHWNCLIA [id number] [place] [address] [place] WBC (Bld) [#/Vol] 5.04 10*3/uL Normal 3.70-11.00 [facility] Comment on above: Order Comment: Speci men Type: BLOOD SPECIMENOrdering Facility: [facility] Address: [address] [place] [address] Performed By: #### 5 7021-8 ####[facility] [id number] [place] [address] [place] CNPTOUTREACHon 07-05-2024 CNPTOUTREACH Normal [facility] CNPTOUTREACHon 07-04-2024 CNPTOUTREACH Normal [facility] CBC W Auto Differential pane l (Bld)on 06-16-2024 Anisocytosis Ql (Bld) Present Normal [facility] Comment on above: Order Comment: Speci men Type: BLOOD SPECIMENOrdering Facility: [facility] Address: [address] [place] [address] Performed By: #### 5 7021-8 ####[facility]CL[facility] [id number] [place] [address] [place] [facility]ORYCL[facility] [id number] [place] [address] [place] Basophils (Bld) [#/Vol] 0.11 10*3/uL High <0.11 [facility] Comment on above: Order Comment: Speci men Type: BLOOD SPECIMENOrdering Facility: [facility] Address: [address] [place] [address] Performed By: #### 5 7021-8 ####[facility]ITALWNCLIA [id number] [address] LABORATORYCLIA [id number] [place] [address] [place] Basophils/100 WBC (Bld) 2.0 % Normal [facility] Comment on above: Order Comment: Speci men Type: BLOOD SPECIMENOrdering Facility: [facility] Address: [address] [place] [address] Performed By: #### 5 7021-8 ####[facility]OSPITALWNCLIA [id number] [address] LABORATORYCLIA [id number] [place] [address] [place] Dacrocytes LM Ql (Bld) Few Normal Cl [facility] Comment on above: Order Comment: Speci men Type: BLOOD SPECIMENOrdering Facility: [facility] Address: [address] [place] [address] Performed By: #### 5 7021-8 ####[facility] HOSPITALLIA [id number] [address] LABORATORYCLIA [id number] [place] [address] [place] Differential cell count method Nom (Bld) Manual Normal [facility] Comment on above: Order Comment: Speci men Type: BLOOD SPECIMENOrdering Facility: [facility] Address: [address] [place] [address] Performed By: #### 5 7021-8 ####[facility] MILLWNCLIA [id number] [address] LABORATORYCLIA [id number] [place] [address] [place] Eosinophils (Bld) [#/Vol] 0.06 10*3/uL Normal <0.46 [facility] Comment on above: Order Comment: Speci men Type: BLOOD SPECIMENOrdering Facility: [facility] Address: [address] [place] [address] Performed By: #### 5 7021-8 ####[facility] MILLTOWNCLIA [id number] [address] LABORATORYCLIA [id number] [place] [address] [place] Eosinophils/100 WBC (Bld) 1.0 % Normal [facility] Comment on above: Order Comment: Speci men Type: BLOOD SPECIMENOrdering Facility: [facility] Address: [address] [place] [address] Performed By: #### 5 7021-8 ####[facility]ITALWNCLIA [id number] [address] LABORATORYCLIA [id number] [place] [address] [place] Erythrocyte distribution width (RBC) [Ratio] 15.9 % High 11.5-15.0 [facility] Comment on above: Order Comment: Speci men Type: BLOOD SPECIMENOrdering Facility: [facility] Address: [address] [place] [address] Performed By: #### 5 7021-8 ####[facility] MILLTOWNCLIA [id number] [address] LABORATORYCLIA [id number] [place] [address] [place] Hematocrit (Bld) [Volume fraction] 27.1 % Low 39.0-51.0 [facility] Comment on above: Order Comment: Speci men Type: BLOOD SPECIMENOrdering Facility: [facility] Address: [address] [place] [address] Performed By: #### 5 7021-8 ####[facility]ITALWNCLIA [id number] [address] LABORATORYCLIA [id number] [place] [address] [place] Hemoglobin (Bld) [Mass/Vol] 9.2 g/dL Low 13.0-17.0 [facility] Comment on above: Order Comment: Speci men Type: BLOOD SPECIMENOrdering Facility: [facility] Address: [address] [place] [address] Performed By: #### 5 7021-8 ####[facility] [id number] [address] LABORATORYCLIA [id number] [place] [address] [place] Lymphocytes (Bld) [#/Vol] 0.74 10*3/uL Low 1.00-4.00 [facility] Comment on above: Order Comment: Speci men Type: BLOOD SPECIMENOrdering Facility: [facility] Address: [address] [place] [address] Performed By: #### 5 7021-8 ####[facility] [id number] [address] LABORATORYCLIA [id number] [place] [address] [place] Lymphocytes/100 WBC (Bld) 13.0 % Normal [facility] Comment on above: Order Comment: Speci men Type: BLOOD SPECIMENOrdering Facility: [facility] Address: [address] [place] [address] Performed By: #### 5 7021-8 ####[facility]BURGNCLIA [id number] [address] LABORATORYCLIA [id number] [place] [address] [place] MCH (RBC) [Entitic mass] 38.2 pg High 26.0-34.0 [facility] Comment on above: Order Comment: Speci men Type: BLOOD SPECIMENOrdering Facility: [facility] Address: [address] [place] [address] Performed By: #### 5 7021-8 ####[facility]ITALWNCLIA [id number] [address] LABORATORYCLIA [id number] [place] [address] [place] MCHC (RBC) [Mass/Vol] 33.9 g/dL Normal 30.5-36.0 [facility] Comment on above: Order Comment: Speci men Type: BLOOD SPECIMENOrdering Facility: [facility] Address: [address] [place] [address] Performed By: #### 5 7021-8 ####[facility] [id number] [address] LABORATORYCLIA [id number] [place] [address] [place] MCV (RBC) [Entitic vol] 112.4 fL High 80.0-100.0 [facility] Comment on above: Order Comment: Speci men Type: BLOOD SPECIMENOrdering Facility: [facility] Address: [address] [place] [address] Performed By: #### 5 7021-8 ####[facility] [id number] [address] LABORATORYIA [id number] [address] [facility] Monocytes (Bld) [#/Vol] 0.57 10*3/uL Normal <0.87 [facility] Comment on above: Order Comment: Speci men Type: BLOOD SPECIMENOrdering Facility: [facility] Address: [address] [place] [address] Performed By: #### 5 7021-8 ####[facility] MILLTOWNCLIA [id number] [address] LABORATORYCLIA [id number] [place] [address] [place] Monocytes/100 WBC (Bld) 10.0 % Normal [facility] Comment on above: Order Comment: Speci men Type: BLOOD SPECIMENOrdering Facility: [facility] Address: [address] [place] [address] Performed By: #### 5 7021-8 ####[facility]ITALWNCLIA [id number] [address] LABORATORYCLIA [id number] [place] [address] [place] Neutrophils (Bld) [#/Vol] 4.19 10*3/uL Normal 1.45-7.50 [facility] Comment on above: Order Comment: Speci men Type: BLOOD SPECIMENOrdering Facility: [facility] Address: [address] [place] [address] Performed By: #### 5 7021-8 ####[facility]ITALWNCLIA [id number] [address] LABORATORYCLIA [id number] [place] [address] [place] Neutrophils/100 WBC (Bld) 74.0 % Normal [facility] Comment on above: Order Comment: Speci men Type: BLOOD SPECIMENOrdering Facility: [facility] Address: [address] [place] [address] Performed By: #### 5 7021-8 ####[facility] MILLTOWNCLIA [id number] [address] LABORATORYCLIA [id number] [place] [address] [place] Nucleated RBC (Bld) [#/Vol] 0.06 10*3/uL High <0.01 [facility] Comment on above: Order Comment: Speci men Type: BLOOD SPECIMENOrdering Facility: [facility] Address: [address] [place] [address] Performed By: #### 5 7021-8 ####[facility]ITALWINLIA [id number] [address] LABORATORYCLIA [id number] [place] [address] [place] Nucleated RBC/100 WBC (Bld) [Ratio] 1.0 /100 WBC Normal [facility] Comment on above: Order Comment: Speci men Type: BLOOD SPECIMENOrdering Facility: [facility] Address: [address] [place] [address] Performed By: #### 5 7021-8 ####[facility] [id number] [address] LABORATORYCLIA [id number] [place] [address] [place] Ovalocytes LM Ql (Bld) Few Normal Cl [facility] Comment on above: Order Comment: Speci men Type: BLOOD SPECIMENOrdering Facility: [facility] Address: [address] [place] [address] Performed By: #### 5 7021-8 ####[facility] [id number] [address] LABORATORYCLIA [id number] [place] [address] [place] Platelet mean volume (Bld) [Entitic vol] 11.3 fL Normal 9.0-12.7 [facility] Comment on above: Order Comment: Speci men Type: BLOOD SPECIMENOrdering Facility: [facility] Address: [address] [place] [address] Performed By: #### 5 7021-8 ####[facility] MILLTOWNCLIA [id number] [address] LABORATORYCLIA [id number] [place] [address] [place] Platelets (Bld) [#/Vol] 230 10*3/uL Normal 150-400 [facility] Comment on above: Order Comment: Speci men Type: BLOOD SPECIMENOrdering Facility: [facility] Address: [address] [place] [address] Performed By: #### 5 7021-8 ####[facility]CL[facility] [id number] [address] LABORATORYCLIA [id number] [place] [address] [place] Platelets Estimate (Bld) [#/Vol] Adequate Normal [facility] Comment on above: Order Comment: Speci men Type: BLOOD SPECIMENOrdering Facility: [facility] Address: [address] [place] [address] Performed By: #### 5 7021-8 ####[facility]ITALTOWNCLIA [id number] [address] LABORATORYCLIA [id number] [place] [address] [place] Polychromasia LM Ql (Bld) Slight Normal [facility] Comment on above: Order Comment: Speci men Type: BLOOD SPECIMENOrdering Facility: [facility] Address: [address] [place] [address] Performed By: #### 5 7021-8 ####[facility]ITALTOWNCLIA [id number] [address] LABORATORYCLIA [id number] [place] [address] [place] RBC (Bld) [#/Vol] 2.41 10*6/uL Low 4.20-6.00 [facility] Comment on above: Order Comment: Speci men Type: BLOOD SPECIMENOrdering Facility: [facility] Address: [address] [place] [address] Performed By: #### 5 7021-8 ####[facility]CL[facility] [id number] [address] LABORATORYIA [id number] [place] [address] [place] RED CELL MORPH Reviewed: see result s of individual morphologies Normal [facility] Comment on above: Order Comment: Speci men Type: BLOOD SPECIMENOrdering Facility: [facility] Address: [address] [place] [address] Performed By: #### 5 7021-8 ####[facility]ITALLIA [id number] [address] LABORATORYIA [id number] [place] [address] [place] WBC (Bld) [#/Vol] 5.66 10*3/uL Normal 3.70-11.00 [facility] Comment on above: Order Comment: Speci men Type: BLOOD SPECIMENOrdering Facility: [facility] Address: [address] [place] [address] Performed By: #### 5 7021-8 ####[facility]CL[facility] [id number] [address] LABORATORYCLIA [id number] [place] [address] [place] CNOVSPon 06-16-2024 CNOVSP Normal [facility] Comprehensive metabolic 2000 panelon 06-16-2024 Albumin [Mass/Vol] 4.2 g/dL Normal 3.9-4.9 [facility] Comment on above: Order Comment: Speci men Type: BLOOD SPECIMENOrdering Facility: [facility] Address: [address] [place] [address] Performed By: #### 2 4323-8 ####[facility]ITALWNCLIA [id number] [place] [address] [place] ALP [Catalytic activity/Vol] 82 U/L Normal 38-113 [facility] Comment on above: Order Comment: Speci men Type: BLOOD SPECIMENOrdering Facility: [facility] Address: [address] [place] [address] Performed By: #### 2 4323-8 ####[facility] [id number] [place] [address] [place] ALT [Catalytic activity/Vol] 19 U/L Normal 10-54 [facility] Comment on above: Order Comment: Speci men Type: BLOOD SPECIMENOrdering Facility: [facility] Address: [address] [place] [address] Performed By: #### 2 4323-8 ####[facility] [id number] [place] [address] [place] Anion gap [Moles/Vol] 7 mmol/L Low 8-15 [facility] Comment on above: Order Comment: Speci men Type: BLOOD SPECIMENOrdering Facility: [facility] Address: [address] [place] [address] Performed By: #### 2 4323-8 ####[facility]ITALLIA [id number] [place] [address] [place] AST [Catalytic activity/Vol] 24 U/L Normal 14-40 [facility] Comment on above: Order Comment: Speci men Type: BLOOD SPECIMENOrdering Facility: [facility] Address: [address] [place] [address] Performed By: #### 2 4323-8 ####[facility] MILLTOWNCLIA [id number] [place] [address] [place] Bilirubin [Mass/Vol] 1.3 mg/dL Normal 0.2-1.3 [facility] Comment on above: Order Comment: Speci men Type: BLOOD SPECIMENOrdering Facility: [facility] Address: [address] [place] [address] Performed By: #### 2 4323-8 ####[facility] MILLTOWNCLIA [id number] [place] [address] [place] Calcium [Mass/Vol] 9.0 mg/dL Normal 8.5-10.2 [facility] Comment on above: Order Comment: Speci men Type: BLOOD SPECIMENOrdering Facility: [facility] Address: [address] [place] [address] Performed By: #### 2 4323-8 ####[facility]ITALWNCLIA [id number] [place] [address] [place] Chloride [Moles/Vol] 101 mmol/L Normal 98-107 [facility] Comment on above: Order Comment: Speci men Type: BLOOD SPECIMENOrdering Facility: [facility] Address: [address] [place] [address] Performed By: #### 2 4323-8 ####[facility] MILLTOWNCLIA [id number] [place] [address] [place] CO2 [Moles/Vol] 28 mmol/L Normal 22-30 [facility] Comment on above: Order Comment: Speci men Type: BLOOD SPECIMENOrdering Facility: [facility] Address: [address] [place] [address] Performed By: #### 2 4323-8 ####[facility] MILLTOWNCLIA [id number] [place] [address] [place] Creatinine [Mass/Vol] 1.00 mg/dL Normal 0.73-1.22 [facility] Comment on above: Order Comment: Elfego gilbert Type: BLOOD SPECIMENOrdering Facility: [facility] Address: [address] [place] [address] Performed By: #### 2 4323-8 ####[facility] [id number] [place] [address] [place] Creatinine and Glomerular filtration rate.predicted panel (S/P/Bld) 72 mL/min/1.73m??? Normal >=60 [facility] Comment on above: Order Comment: Elfego gilbert Type: BLOOD SPECIMENOrdering Facility: [facility] Address: [address] [place] [address] Result Comment: Concepción mated Glomerular Filtration Rate (eGFR) is calculated using the 2020 CKD-EPI creatinine equation. This equation utilizes serum creatinine, sex, and age as parameters. The creatinine assay has traceable calibration to isotope dilution-mass spectrometry. Refer to KDIGO guidelines for clinical interpretation. In patients with unstable renal function, e.g. those with acute kidney injury, the eGFR may not accurately reflect actual GFR. Performed By: #### 2 4323-8 ####[facility] [id number] [place] [address] [place] Glucose [Mass/Vol] 142 mg/dL High 74-99 [facility] Comment on above: Order Comment: Elfego gilbert Type: BLOOD SPECIMENOrdering Facility: [facility] Address: [address] [place] [address] Result Comment: The [place] Diabetes Association (ADA) provides guidance for cutoff values for fasting glucose and random glucose. The ADA defines fasting as no caloric intake for at least 8 hours. Fasting plasma glucose results between 100 to 125 mg/dL indicate increased risk for diabetes (prediabetes).Fasting plasma glucose results greater than or equal to 126 mg/dL meet the criteria for diagnosis of diabetes. In the absence of unequivocal hyperglycemia, results should be confirmed by repeat testing. In a patient with classic symptoms of hyperglycemia or hyperglycemic crisis, random plasma glucose results greater than or equal to 200 mg/dL meet the criteria for diagnosis of diabetes.Reference: Standards of Medical Care in Diabetes 2016, [place] [employer] Association. Diabetes Care. 2016.39(Suppl 1). Performed By: #### 2 4323-8 ####[facility] [id number] [place] [address] [place] Potassium [Moles/Vol] 4.5 mmol/L Normal 3.7-5.1 [facility] Comment on above: Order Comment: Speci men Type: BLOOD SPECIMENOrdering Facility: [facility] Address: [address] [place] [address] Performed By: #### 2 4323-8 ####[facility] [id number] [place] [address] [place] Protein [Mass/Vol] 6.2 g/dL Low 6.3-8.0 [facility] Comment on above: Order Comment: Speci men Type: BLOOD SPECIMENOrdering Facility: [facility] Address: [address] [place] [address] Performed By: #### 2 4323-8 ####[facility] [id number] [place] [address] [place] Sodium [Moles/Vol] 136 mmol/L Normal 136-144 [facility] Comment on above: Order Comment: Speci men Type: BLOOD SPECIMENOrdering Facility: [facility] Address: [address] [place], [place] [address] Performed By: #### 2 4323-8 ####[facility] [id number] [place] [address] [place] Urea nitrogen [Mass/Vol] 27 mg/dL High 9-24 [facility] Comment on above: Order Comment: Speci men Type: BLOOD SPECIMENOrdering Facility: [facility] Address: [address] [place] [address] Performed By: #### 2 4323-8 ####[facility] [id number] [place] [address] [place] Ferritin SerPl-mCncon 2023 Ferritin [Mass/Vol] 611.0 ng/mL High 30.3-565.7 [facility] Comment on above: Order Comment: Speci men Type: BLOOD SPECIMENOrdering Facility: [facility] Address: [address] [place] [address] Performed By: #### 5 0190-8, 2276-4 ####[facility] LABCLIA [id number] [place] [address] [place] Iron and Iron binding capaci ty panelon 06-16-2024 Iron [Mass/Vol] 104 ug/dL Normal 41-186 [facility] Comment on above: Order Comment: Speci men Type: BLOOD SPECIMENOrdering Facility: [facility] Address: [address] [place] [address] Performed By: #### 5 0190-8, 2275-4 ####[facility] LABIA [id number] [place] [address] [place] Iron binding capacity [Mass/Vol] 185 ug/dL Low 232-386 [facility] Comment on above: Order Comment: Speci men Type: BLOOD SPECIMENOrdering Facility: [facility] Address: [address] [place] [address] Performed By: #### 5 0190-8, 2275-4 ####[facility] LABIA [id number] [place] [address] [place] Iron/TIBC [Molar ratio] 56.2 % Normal 15.0-57.0 [facility] Comment on above: Order Comment: Speci men Type: BLOOD SPECIMENOrdering Facility: [facility] Address: [address] [place] [address] Performed By: #### 5 0190-8, 2276-4 ####[facility] LABCLIA [id number] [place] [id number] [place] XR Chest PA and Lateralon IMPRESSION: No acute radiographic abnormality. Auto Carrier Driver: BERNARDA Transcribe Date/Time: Jan 25 2024 4:34A Dictated by : SKY SORIA MD This examination was interpreted and the report reviewed and electronically signed by: SKY SORIA MD on Jan 25 2024 4:35AM [facility] DIVISION OF RADIOLOGY * * *Final Report* * * DATE OF EXAM: Jan 22 2024 12:19PM WOX [id number] - XR CHEST 2V FRONTAL/LAT / PROCEDURE REASON: Chronic heart failure with preserved ejection fraction (HCC) * * * * Physician Interpretation * * * * EXAMINATION: CHEST RADIOGRAPH (2 VIEW FRONTAL & LATERAL) CLINICAL HISTORY: Chronic heart failure with preserved ejection fraction (HCC) MQ: XC2_6 EXAM DATE/TIME: 01/22/2024 12:19 PM COMPARISON: 05/29/2023 RESULT: Lines, tubes, and devices: Stable left chest wall dual-chamber pacemaker with transvenous leads in the right atrium and right ventricle. Lungs and pleura: No consolidation. Both lungs are mildly hypoinflated. No pleural effusion. No pneumothorax. Cardiomediastinal silhouette: Stable cardiomediastinal silhouette. Bones and soft tissues: Status post median sternotomy with normally aligned sternal wires. Endplate degenerative changes in the thoracic spine. Partly visualized bilateral humeral arthroplasty hardware. DIVISION OF RADIOLOGY Provider, [facility] - 01/25/2024 * * *Final Report* * * DATE OF EXAM: Jan 22 2024 12:19PM WOX 5291 - XR CHEST 2V FRONTAL/LAT / PROCEDURE REASON: Chronic heart failure with preserved ejection fraction (HCC) * * * * Physician Interpretation * * * * EXAMINATION: CHEST RADIOGRAPH (2 VIEW FRONTAL & LATERAL) CLINICAL HISTORY: Chronic heart failure with preserved ejection fraction (HCC) MQ: XC2_6 EXAM DATE/TIME: 01/22/2024 12:19 PM COMPARISON: 05/29/2023 RESULT: Lines, tubes, and devices: Stable left chest wall dual-chamber pacemaker with transvenous leads in the right atrium and right ventricle. Lungs and pleura: No consolidation. Both lungs are mildly hypoinflated. No pleural effusion. No pneumothorax. Cardiomediastinal silhouette: Stable cardiomediastinal silhouette. Bones and soft tissues: Status post median sternotomy with normally aligned sternal wires. Endplate degenerative changes in the thoracic spine. Partly visualized bilateral humeral arthroplasty hardware. IMPRESSION IMPRESSION: No acute radiographic abnormality. Auto Carrier Driver: [facility] Transcribe Date/Time: Jan 25 2024 4:34A Dictated by : SKY SORIA MD This examination was interpreted and the report reviewed and electronically signed by: SKY SORIA MD on Jan 25 2024 4:35AM EST [facility] XR Chest PA and LateralOrder ed By: Ccf Provider on 01-25-2024 [facility] XR Chest PA and Lateralon Radiology Study observation (narrative) [facility] XR Elbow - right AP and Late ral and obliqueon 12-24-2023 IMPRESSION: No acute osseous abnormality Auto Carrier Driver: [facility] Transcribe Date/Time: Dec 24 2023 8:16A Dictated by : JOSE ROBERTS MD This examination was interpreted and the report reviewed and electronically signed by: JOSE ROBERTS MD on Dec 24 2023 8:20AM EST DIVISION OF RADIOLOGY * * *Final Report* * * DATE OF EXAM: Dec 23 2023 12:39PM WOX 5325 - XR ELBOW 3V AP/LAT/OTHER RT / PROCEDURE REASON: multiple diagnoses * * * * Physician Interpretation * * * * EXAMINATION: XR ELBOW 3V AP/LAT/OTHER RT CLINICAL HISTORY: Right elbow pain Technique: XR ELBOW 3V AP/LAT/OTHER RT -- RIGHT with 3 views on 3 images Comparison: None RESULT: No acute fracture or dislocation. Mild radiocapitellar joint space narrowing. Osteophytes on the radial head. Small enthesophyte on the olecranon process. DIVISION OF RADIOLOGY Provider, [facility] - 12/24/2023 * * *Final Report* * * DATE OF EXAM: Dec 23 2023 12:39PM WOX 5325 - XR ELBOW 3V AP/LAT/OTHER RT / PROCEDURE REASON: multiple diagnoses * * * * Physician Interpretation * * * * EXAMINATION: XR ELBOW 3V AP/LAT/OTHER RT CLINICAL HISTORY: Right elbow pain Technique: XR ELBOW 3V AP/LAT/OTHER RT -- RIGHT with 3 views on 3 images Comparison: None RESULT: No acute fracture or dislocation. Mild radiocapitellar joint space narrowing. Osteophytes on the radial head. Small enthesophyte on the olecranon process. IMPRESSION IMPRESSION: No acute osseous abnormality Auto Car[employer] Driver: [facility] Transcribe Date/Time: Dec 24 2023 8:16A Dictated by : JOSE ROBERTS MD This examination was interpreted and the report reviewed and electronically signed by: JOSE ROBERTS MD on Dec 24 2023 8:20AM EST [facility] XR Elbow - right AP and Late ral and obliqueOrdered By: Ccf Provider on 12-24-2023 [facility] XR Elbow - right AP and Late ral and obliqueon 12-23-2023 Radiology Study observation (narrative) [facility] Laboratory - Chemistry and C hemistry - challengeOrdered By: Ronaldo Pleitez on 06-22-2023 Cobalamin (Vitamin B12) [Mass/Vol] 567 pg/mL 211-911 [facility] No Panel InformationOrdered By: Ronaldo Pleitez on 06-22-2023 Vitamin D 25-Hydroxy 64.7 ng/mL [facility] Comment on above: Vitamin D 25(OH) Sta tus Range Deficiency <20 ng/mL (50nmol/L) Insufficiency 20 - 30 ng/mL (50 - 75 nmol/L) Sufficiency 30 - 100 ng/mL (75 - 250 nmol/L) Toxicity >100 ng/mL (>250 nmol/L) XR CHEST 2V FRONTAL/LATon [facility] Absolute lymphocyte countOrd ered By: Mary Prather on 05-18-2023 Lymphocytes Auto (Unsp spec) [#/Vol] 0.54 10*3/uL 0.83-4.51 [facility] Basophil percentageOrdered B y: Mary Prather on 05-18-2023 Basophils/100 WBC (Bld) 0.4 % 0-1 [facility] Bilirubin [Mass/Vol] 1.50 mg/dL 0.20-1.00 [facility] Comment on above: For patients on eltr ombopag therapy, use of Dimension [place] TBIL is not recommended. Chloride [Moles/Vol] 103 mmol/L 98-107 [facility] Eosinophils/100 WBC (Bld) 1.9 % 0-5 [facility] Glucose [Mass/Vol] 93 mg/dL 74-106 [facility] Neutrophils (Bld) [#/Vol] 3.9 10*3/uL 2.0-7.7 [facility] Neutrophils/100 WBC (Bld) 80.3 % 47-70 [facility] Potassium [Moles/Vol] 3.8 mmol/L 3.5-5.1 [facility] Protein [Mass/Vol] 5.2 g/dL 6.4-8.2 [facility] Sodium [Moles/Vol] 136 mmol/L 136-145 [facility] WBC (Bld) [#/Vol] 4.8 10*3/uL 4.4-11.0 [facility] Blood erythrocytes count (nu mber/volume)Ordered By: Mary Prather on 05-18-2023 RBC (Bld) [#/Vol] 2.64 10*6/uL 4.6-6.2 [facility] Blood hemoglobin measurement (mass/volume)Ordered By: Mary Prather on 05-18-2023 Hemoglobin (Bld) [Mass/Vol] 8.7 g/dL 13.0-16.5 [facility] Blood lymphocytes/100 leukoc ytesOrdered By: Mary Prather on 05-18-2023 Lymphocytes/100 WBC (Bld) 11.3 % 19-41 [facility] Blood monocytes/100 leukocyt esOrdered By: Mary Prather on 05-18-2023 Monocytes/100 WBC (Bld) 4.2 % 0-10 [facility] Blood platelet mean volumeOr dered By: Mary Prather on 05-18-2023 Platelet mean volume (Bld) [Entitic vol] 10.8 fL 6.2-12.0 [facility] Determination of erythrocyte mean corpuscular volume (MCV)Ordered By: Mary Prather on 05-18-2023 MCV (RBC) [Entitic vol] 103.0 fL 80-94 [facility] Hematocrit Auto (Bld) [Volum e fraction]Ordered By: Mary Prather on 05-18-2023 Hematocrit (Bld) [Volume fraction] 27.2 % 40-54 [facility] Laboratory - Chemistry and C hemistry - challengeOrdered By: Mary Prather on 05-18-2023 ALP [Catalytic activity/Vol] 134 U/L 45-117 [facility] ALT [Catalytic activity/Vol] 51 U/L 16-61 [facility] CO2 [Moles/Vol] 30.0 mmol/L 21.0-32.0 [facility] Globulin (S) [Mass/Vol] 3.1 g/dL 2.2-4.2 [facility] Urea nitrogen/Creatinine [Mass ratio] 29.8 mg/mg 10-20 [facility] Laboratory - Hematology and Cell countsOrdered By: Mary Prather on 05-18-2023 Anisocytosis Ql (Bld) 2+ [facility] Erythrocyte distribution width (RBC) [Entitic vol] 86.3 fL 35.1-43.9 [facility] Erythrocyte distribution width (RBC) [Ratio] 22.7 % 11.6-14.6 [facility] Immature granulocytes/100 WBC (Bld) 1.900 % 0.0-0.9 [facility] Comment on above: IG% - Immature Granu locytes (promyelocytes, myelocytes and metamyelocytes) > 1% indicates that a LEFT SHIFT is Present. MCH (RBC) [Entitic mass] 33.0 pg 27.0-32.0 [facility] Nucleated RBC/100 WBC (Bld) [Ratio] 0 % 0-5 [facility] MCHC Auto (RBC) [Mass/Vol]Or dered By: Mary Prather on 05-18-2023 MCHC (RBC) [Mass/Vol] 32.0 g/dL 32-36 [facility] Macrocytes detectionOrdered By: Mary Prather on 05-18-2023 Macrocytes Ql (Bld) 2+ [facility] No Panel InformationOrdered By: Mary Prather on 05-18-2023 Estimated Creatinine Clearance Calc 57.92 ml/min [facility] Estimated GFR (MDRD) Amer 111 mL/min >60 [facility] Comment on above: GFR Calc Estimated GFR (MDRD) Non-Af Amer 92 mL/min >60 [facility] Comment on above: Non- GFR Calc Platelets bldOrdered By: Ceci Prather on 05-18-2023 Platelets (Bld) [#/Vol] 216 10*3/uL 150-450 [facility] Serum or plasma albumin gris urement (mass/volume)Ordered By: Mary Prather on 05-18-2023 Albumin [Mass/Vol] 2.1 g/dL 3.2-5.0 [facility] Serum or plasma albumin/glob ulin mass ratioOrdered By: Mary Prather on 05-18-2023 Albumin/Globulin [Mass ratio] 0.7 {ratio} 0.9-2.4 [facility] Serum or plasma calcium gris urement (mass/volume)Ordered By: Mary Prather on 05-18-2023 Calcium [Mass/Vol] 8.2 mg/dL 8.5-10.1 [facility] Serum or plasma creatinine m easurement (mass/volume)Ordered By: Mary Prather on 05-18-2023 Creatinine [Mass/Vol] 0.84 mg/dL 0.70-1.30 [facility] Comment on above: The validity of the calculated GFR & GFRAA in patients over 70 years has not been determined. Clinical correlation is essential. Serum or plasma urea nitroge n measurement (mass/volume)Ordered By: Mary Prather on 05-18-2023 Urea nitrogen [Mass/Vol] 25 mg/dL 7-18 [facility] Thin prep Papanicolaou smear with manual screeningOrdered By: Mary Prather on 05-18-2023 Thin prep Papanicolaou smear with manual screening 21 U/L 15-37 [facility] Thin prep Papanicolaou smear with manual screening 3 5-15 [facility] Blood manual differential co mment interpretation (narrative result)Ordered By: Mary Prather on 05-17-2023 Manual differential comment Gregg (Bld) [Interp] SCANNED [facility] Blood polychromasia detectio n by light microscopyOrdered By: Mary Prather on 05-17-2023 Polychromasia LM Ql (Bld) RARE [facility] Blood schistocytes detection by light microscopyOrdered By: Mary Prather on 05-17-2023 Schistocytes LM Ql (Bld) RARE [facility] Laboratory - Chemistry and C hemistry - challengeOrdered By: Marshal Rebolledo on 05-17-2023 Cobalamin (Vitamin B12) [Mass/Vol] 341 pg/mL 211-911 [facility] Laboratory - Microbiology an d Antimicrobial susceptibilityOrdered By: Marshal Rebolledo on 05-17-2023 Bacteria identified Cx Nom (Bld) No growth in 5 days. [facility] Serum or plasma folate measu rement (mass/volume)Ordered By: Marshal Rebolledo on 05-17-2023 Folate [Mass/Vol] 30.10 ng/mL 3.1-55.4 [facility] Thin prep Papanicolaou smear with manual screeningOrdered By: Mary Prather on 05-17-2023 Thin prep Papanicolaou smear with manual screening 1+ [facility] Vancomycin troughOrdered By: Marshal Rebolledo on 05-17-2023 Vancomycin trough [Mass/Vol] 15.3 ug/mL 5.0-15.0 [facility] Comment on above: VANCOMYCIN STANDARED DRUG THERAPY TROUGH LEVEL: 5.0 - 15.0 mg/L VANCOMYCIN HIGH INTENSITY THERAPY TROUGH LEVEL: 15.0 - 20.0 mg/L High Intensity therapy recommended for serious lifethreatening infections include:- Wsicsivgyq-Vdfrxnlbfcbu-Zpkqucozl (Ventilator/Healtcare Associated)-Sepsis PLEASE CONTACT PHARMACY SERVICES (#4640) FOR INTERPRETATIONOF RESULTS. No Panel InformationOrdered By: Marshal Rebolledo on 05-16-2023 RBC Folate Hemolysate > 620.0 ng/mL Not Estab. [facility] Red Blood Cell Folate > 2322 ng/mL >[address] [facility] Comment on above: Performed at: [place] [id number] Director: Juan Manuel Uriostegui PhD, Phone: [phone] Thin prep Papanicolaou smear with manual screeningOrdered By: Marshal Rebolledo on 05-16-2023 Thin prep Papanicolaou smear with manual screening 26.7 % 37.5-51.0 [facility] Whole blood hemoglobin A1c/t otal hemoglobin ratio (mass fraction)Ordered By: Mary Prather on 05-16-2023 HbA1c (Bld) [Mass fraction] 6.9 % 3.8-5.6 [facility] Comment on above: Normal < 5.7 % Predi abetic 5.7 - 6.4 % Diabetic >or= 6.5 % Please note range changes. Blood platelet adequacy dete ction by light microscopyOrdered By: Mary Prather on 05-15-2023 Platelets LM Ql (Bld) ADEQUATE ADEQ [facility] Glucose Glucometer (BldC) [M ass/Vol]Ordered By: Mary Prather on 05-15-2023 Glucose [Mass/Vol] 147 mg/dL 74-106 [facility] Comment on above: MANAGEMENT OF PATIEN T CARE PER NURSING PROTOCOL INR in Blood by Coagulation assayOrdered By: Mary Prather on 05-15-2023 INR Coag (Bld) [Relative time] 1.5 {INR} [facility] Laboratory - Chemistry and C hemistry - challengeOrdered By: Mary Prather on 05-15-2023 Magnesium [Mass/Vol] 1.9 mg/dL 1.6-2.6 [facility] Laboratory - CoagulationOrde red By: Mary Prather on 05-15-2023 PT Coag (PPP) [Time] 18.2 s 11.7-14.9 [facility] No Panel InformationOrdered By: Mary Prather on 05-15-2023 Digoxin Level 1.39 ng/mL 0.80-2.00 [facility] Thyroid Stimulating Hormone (TSH) 0.61 uIU/mL 0.358-3.74 [facility] Absolute lymphocyte countOrd ered By: Pedro Diaz on 05-14-2023 Lymphocytes Auto (Unsp spec) [#/Vol] 0.39 10*3/uL 0.83-4.51 [facility] Basophil percentageOrdered B y: Pedro Diaz on 05-14-2023 Lactate [Moles/Vol] 2.4 mmol/L 0.4-2.0 [facility] Comment on above: Critical Result(s) C alled at: 18:12:55 05/14/2023 by: Yue LEWIS. Results read back by same. Basophils/100 WBC (Bld) 0.4 % 0-1 [facility] Bilirubin [Mass/Vol] 1.20 mg/dL 0.20-1.00 [facility] Comment on above: For patients on eltr ombopag therapy, use of Dimension [place] TBIL is not recommended. Chloride [Moles/Vol] 96 mmol/L 98-107 [facility] Eosinophils/100 WBC (Bld) 0.0 % 0-5 [facility] Glucose [Mass/Vol] 252 mg/dL 74-106 [facility] Comment on above: Glucose result great er than or equal to 200 mg/dLsuggests DIABETES MELLITUS per A.D.A. criteria. Lactate [Moles/Vol] 3.8 mmol/L 0.4-2.0 [facility] Comment on above: Critical Result(s) C alled at: 13:57:26 05/14/2023 by: Tari Martínez. Results read back by same. Neutrophils (Bld) [#/Vol] 6.2 10*3/uL 2.0-7.7 [facility] Neutrophils/100 WBC (Bld) 89.7 % 47-70 [facility] Potassium [Moles/Vol] 4.5 mmol/L 3.5-5.1 [facility] Protein [Mass/Vol] 5.4 g/dL 6.4-8.2 [facility] Sodium [Moles/Vol] 136 mmol/L 136-145 [facility] WBC (Bld) [#/Vol] 7.0 10*3/uL 4.4-11.0 [facility] Blood erythrocytes count (nu mber/volume)Ordered By: Pedro Diaz on 05-14-2023 RBC (Bld) [#/Vol] 2.84 10*6/uL 4.6-6.2 [facility] Blood hemoglobin measurement (mass/volume)Ordered By: Pedro Diaz on 05-14-2023 Hemoglobin (Bld) [Mass/Vol] 9.3 g/dL 13.0-16.5 [facility] Blood lymphocytes/100 leukoc ytesOrdered By: Pedro Diaz on 05-14-2023 Lymphocytes/100 WBC (Bld) 5.6 % 19-41 [facility] Blood manual differential co mment interpretation (narrative result)Ordered By: Pedro Diaz on 05-14-2023 Manual differential comment Gregg (Bld) [Interp] SCANNED [facility] Blood monocytes/100 leukocyt esOrdered By: Pedro Diaz on 05-14-2023 Monocytes/100 WBC (Bld) 2.7 % 0-10 [facility] Blood platelet mean volumeOr dered By: Pedro Diaz on 05-14-2023 Platelet mean volume (Bld) [Entitic vol] 10.7 fL 6.2-12.0 [facility] Blood polychromasia detectio n by light microscopyOrdered By: Pedro Diaz on 05-14-2023 Polychromasia LM Ql (Bld) RARE [facility] Determination of erythrocyte mean corpuscular volume (MCV)Ordered By: Pedro Diaz on 05-14-2023 MCV (RBC) [Entitic vol] 103.2 fL 80-94 [facility] Hematocrit Auto (Bld) [Volum e fraction]Ordered By: Pedro Diaz on 05-14-2023 Hematocrit (Bld) [Volume fraction] 29.3 % 40-54 [facility] INR in Blood by Coagulation assayOrdered By: Pedro Diaz on 05-14-2023 INR Coag (Bld) [Relative time] 1.5 {INR} [facility] Laboratory - Chemistry and C hemistry - challengeOrdered By: Pedro Diaz on 05-14-2023 ALP [Catalytic activity/Vol] 92 U/L 45-117 [facility] ALT [Catalytic activity/Vol] 51 U/L 16-61 [facility] CO2 [Moles/Vol] 35.0 mmol/L 21.0-32.0 [facility] Globulin (S) [Mass/Vol] 2.7 g/dL 2.2-4.2 [facility] Natriuretic peptide B (Bld) [Mass/Vol] 972.1 pg/mL 0-100 [facility] Urea nitrogen/Creatinine [Mass ratio] 26.5 mg/mg 10-20 [facility] Laboratory - CoagulationOrde red By: Pedro Diaz on 05-14-2023 aPTT Coag (Bld) [Time] 30.3 s 24.1-36.2 [facility] PT Coag (PPP) [Time] 18.6 s 11.7-14.9 [facility] Laboratory - Hematology and Cell countsOrdered By: Pedro Diaz on 05-14-2023 Anisocytosis Ql (Bld) 2+ [facility] Erythrocyte distribution width (RBC) [Entitic vol] 83.3 fL 35.1-43.9 [facility] Erythrocyte distribution width (RBC) [Ratio] 22.2 % 11.6-14.6 [facility] Immature granulocytes/100 WBC (Bld) 1.600 % 0.0-0.9 [facility] Comment on above: IG% - Immature Granu locytes (promyelocytes, myelocytes and metamyelocytes) > 1% indicates that a LEFT SHIFT is Present. MCH (RBC) [Entitic mass] 32.7 pg 27.0-32.0 [facility] Nucleated RBC/100 WBC (Bld) [Ratio] 0.4 % 0-5 [facility] MCHC Auto (RBC) [Mass/Vol]Or dered By: Pedro Diaz on 05-14-2023 MCHC (RBC) [Mass/Vol] 31.7 g/dL 32-36 [facility] Macrocytes detectionOrdered By: Pedro Diaz on 05-14-2023 Macrocytes Ql (Bld) 1+ [facility] No Panel InformationOrdered By: Pedro Diaz on 05-14-2023 Estimated Creatinine Clearance Calc 41.59 ml/min [facility] Estimated GFR (MDRD) Amer 76 mL/min >60 [facility] Comment on above: GFR Calc Estimated GFR (MDRD) Non-Af Amer 63 mL/min >60 [facility] Comment on above: Non- GFR Calc Troponin I High Sensitivity 111 pg/mL 3.0-78.0 [facility] Comment on above: Please Note: [place] Units and Gender Specific Reference Ranges. For more information see Policy Stat Procedure [place] High Sensitivity Troponin (TNIH) and attachments. Platelets bldOrdered By: Mago Diaz on 05-14-2023 Platelets (Bld) [#/Vol] 399 10*3/uL 150-450 [facility] Serum or plasma albumin gris urement (mass/volume)Ordered By: Pedro Diaz on 05-14-2023 Albumin [Mass/Vol] 2.7 g/dL 3.2-5.0 [facility] Serum or plasma albumin/glob ulin mass ratioOrdered By: Pedro Diaz on 05-14-2023 Albumin/Globulin [Mass ratio] 1.0 {ratio} 0.9-2.4 [facility] Serum or plasma calcium gris urement (mass/volume)Ordered By: Pedro Diaz on 05-14-2023 Calcium [Mass/Vol] 8.4 mg/dL 8.5-10.1 [facility] Serum or plasma creatinine m easurement (mass/volume)Ordered By: Pedro Diaz on 05-14-2023 Creatinine [Mass/Vol] 1.17 mg/dL 0.70-1.30 [facility] Comment on above: The validity of the calculated GFR & GFRAA in patients over 70 years has not been determined. Clinical correlation is essential. Serum or plasma urea nitroge n measurement (mass/volume)Ordered By: Pedro Diaz on 05-14-2023 Urea nitrogen [Mass/Vol] 31 mg/dL 7-18 [facility] Thin prep Papanicolaou smear with manual screeningOrdered By: Pedro Diaz on 05-14-2023 Thin prep Papanicolaou smear with manual screening 20 U/L 15-37 [facility] Thin prep Papanicolaou smear with manual screening 5 5-15 [facility] No Panel InformationOrdered By: [facility] on 05-06-2023 Digoxin Level 0.96 ng/mL 0.80-2.00 [facility] CBC W Auto Differential pane l (Bld)on 05-04-2023 Basophils (Bld) [#/Vol] 0.04 10*3/uL <0.11 k/uL [facility] Basophils/100 WBC (Bld) 1.5 % [facility] Differential cell count method Nom (Bld) Auto [facility] Eosinophils (Bld) [#/Vol] 0.06 10*3/uL <0.46 k/uL [facility] Eosinophils/100 WBC (Bld) 2.3 % [facility] Erythrocyte distribution width (RBC) [Ratio] 22.0 % High 11.5 - 15.0 % [facility] Hematocrit (Bld) [Volume fraction] 28.2 % Low 39.0 - 51.0 % [facility] Hemoglobin (Bld) [Mass/Vol] 9.2 g/dL Low 13.0 - 17.0 g/dL [facility] Immature granulocytes (Bld) [#/Vol] <0.10 k/uL [facility] Immature granulocytes/100 WBC (Bld) 0.4 % [facility] Lymphocytes (Bld) [#/Vol] 0.63 10*3/uL Low 1.00 - 4.00 k/uL [facility] Lymphocytes/100 WBC (Bld) 24.2 % [facility] MCH (RBC) [Entitic mass] 33.7 pg 26.0 - 34.0 pg [facility] MCHC (RBC) [Mass/Vol] 32.6 g/dL 30.5 - 36.0 g/dL [facility] MCV (RBC) [Entitic vol] 103.3 fL High 80.0 - 100.0 fL [facility] Monocytes (Bld) [#/Vol] 0.17 10*3/uL <0.87 k/uL [facility] Monocytes/100 WBC (Bld) 6.5 % [facility] Neutrophils (Bld) [#/Vol] 1.69 10*3/uL 1.45 - 7.50 k/uL [facility] Neutrophils/100 WBC (Bld) 65.1 % [facility] Nucleated RBC (Bld) [#/Vol] <0.01 k/uL [facility] Nucleated RBC/100 WBC (Bld) [Ratio] 0.0 /100 WBC [facility] Platelet mean volume (Bld) [Entitic vol] 10.1 fL 9.0 - 12.7 fL [facility] Platelets (Bld) [#/Vol] 338 10*3/uL 150 - 400 k/uL [facility] RBC (Bld) [#/Vol] 2.73 10*6/uL Low 4.20 - 6.00 m/uL [facility] WBC (Bld) [#/Vol] 2.60 10*3/uL Low 3.70 - 11.00 k/uL [facility] No Panel InformationOrdered By: [facility] on 05-04-2023 Troponin I High Sensitivity 116 pg/mL 3.0-78.0 [facility] Comment on above: Please Note: New [place] t Units and Gender Specific Reference Ranges. For more information see Policy Stat Procedure [place] High Sensitivity Troponin (TNIH) and attachments. CT BRAIN IVCONon 04-21-20 [facility] CNPNon 04-20-2023 CNPN Normal [facility] Basic metabolic 2000 panelon 03-20-2023 Anion gap [Moles/Vol] 4 mmol/L Low 9-18 [facility] Comment on above: Order Comment: Speci men Type: BLOOD SPECIMENOrdering Facility: [facility] Address: [address] [address] Performed By: #### 2 4321-2 ####[employer] LABCLIA [id number] [place] [address] [place] Calcium [Mass/Vol] 8.8 mg/dL Normal 8.6-10.3 [facility] Comment on above: Order Comment: Speci men Type: BLOOD SPECIMENOrdering Facility: [facility] Address: [address] [address] Performed By: #### 2 4321-2 ####[employer] LABCLIA [id number] [place] [address] [place] Chloride [Moles/Vol] 102 mmol/L Normal 101-111 [facility] Comment on above: Order Comment: Speci men Type: BLOOD SPECIMENOrdering Facility: [facility] Address: [address] [address] Performed By: #### 2 4321-2 ####[employer] LABCLIA [id number] [place] [address] [place] CO2 [Moles/Vol] 35 mmol/L High 21-31 [facility] Comment on above: Order Comment: Speci men Type: BLOOD SPECIMENOrdering Facility: [facility] Address: [address] [address] Performed By: #### 2 4321-2 ####[employer] LABCLIA [id number] [place] [address] [place] Creatinine [Mass/Vol] 1.05 mg/dL Normal 0.60-1.30 [facility] Comment on above: Order Comment: Elfego vladimir Type: BLOOD SPECIMENOrdering Facility: [facility] Address: [address] [address] Result Comment: Use of this assay is not recommended for patients undergoing treatment with phenindione, due to the potential for falsely depressed results. Performed By: #### 2 4321-2 ####[employer] LABCLIA [id number] [place] [address] [place] ESTIMATED GLOMERULAR FILTRATION RATE 69 mL/min/1.73m??? Normal >=60 [facility] Comment on above: Order Comment: Julijason gilbert Type: BLOOD SPECIMENOrdering Facility: [facility] Address: [address] [place] [address] Result Comment: Concepción mated Glomerular Filtration Rate (eGFR) is calculated using the 2020 CKD-EPI creatinine equation. This equation utilizes serum creatinine, sex, and age as parameters. The creatinine assay has traceable calibration to isotope dilution-mass spectrometry. Refer to KDIGO guidelines for clinical interpretation. In patients with unstable renal function, e.g. those with acute kidney injury, the eGFR may not accurately reflect actual GFR. Performed By: #### 2 4321-2 ####[employer] LABIA [id number] [place] [address] [place] Glucose [Mass/Vol] 115 mg/dL High 74-99 [facility] Comment on above: Order Comment: Elfego gilbert Type: BLOOD SPECIMENOrdering Facility: [facility] Address: [address] [place] [address] Result Comment: The [place] Diabetes Association (ADA) provides guidance for cutoff values for fasting glucose and random glucose. The ADA defines fasting as no caloric intake for at least 8 hours. Fasting plasma glucose results between 100 to 125 mg/dL indicate increased risk for diabetes (prediabetes).Fasting plasma glucose results greater than or equal to 126 mg/dL meet the criteria for diagnosis of diabetes. In the absence of unequivocal hyperglycemia, results should be confirmed by repeat testing. In a patient with classic symptoms of hyperglycemia or hyperglycemic crisis, random plasma glucose results greater than or equal to 200 mg/dL meet the criteria for diagnosis of diabetes.Reference: Standards of Medical Care in Diabetes 2016, [place] Diabetes Association. Diabetes Care. 2016.39(Suppl 1). Performed By: #### 2 4321-2 ####[employer] LABCLIA [id number] [place] [address] [place] Potassium [Moles/Vol] 3.9 mmol/L Normal 3.6-5.1 [facility] Comment on above: Order Comment: Elfego gilbert Type: BLOOD SPECIMENOrdering Facility: [facility] Address: [address] [place] [address] Performed By: #### 2 4321-2 ####[facility] [employer] LABCLIA [id number] [address] [place] [facility] Sodium [Moles/Vol] 141 mmol/L Normal 136-144 [facility] Comment on above: Order Comment: Elfego gilbert Type: BLOOD SPECIMENOrdering Facility: [facility] Address: [address] [place] [address] Performed By: #### 2 4321-2 ####[facility] LABCLIA [id number] [place] [address] [place] Urea nitrogen [Mass/Vol] 32 mg/dL High 7-25 [facility] Comment on above: Order Comment: Speci vladimir Type: BLOOD SPECIMENOrdering Facility: [facility] Address: [address] [place] [address] Performed By: #### 2 4321-2 ####[facility] [employer] LABCLIA [id number] [place] [address] [place] CBC W Auto Differential pane l (Bld)on 03-20-2023 Basophils (Bld) [#/Vol] 0.03 10*3/uL Normal <0.11 [facility] Comment on above: Order Comment: Speci men Type: BLOOD SPECIMENOrdering Facility: [facility] Address: [address] [address] Performed By: #### 5 7021-8 ####[facility] [employer] LABCLIA [id number] [place] [address] [place] Basophils/100 WBC (Bld) 0.6 % Normal [facility] Comment on above: Order Comment: Speci men Type: BLOOD SPECIMENOrdering Facility: [facility] Address: [address] [place] [address] Performed By: #### 5 7021-8 ####[employer] LABCLIA [id number] [address] Differential cell count method Nom (Bld) Auto Normal [facility] Comment on above: Order Comment: Speci men Type: BLOOD SPECIMENOrdering Facility: [facility] Address: [address] [place] [address] Performed By: #### 5 7021-8 ####[facility] LABCLIA [id number] [place] [address] [place] Eosinophils (Bld) [#/Vol] 0.11 10*3/uL Normal <0.46 [facility] Comment on above: Order Comment: Speci men Type: BLOOD SPECIMENOrdering Facility: [facility] Address: [address] [place] [address] Performed By: #### 5 7021-8 ####[facility] LABCLIA [id number] [address] Eosinophils/100 WBC (Bld) 2.1 % Normal [facility] Comment on above: Order Comment: Speci men Type: BLOOD SPECIMENOrdering Facility: [facility] Address: [address] [place] [address] Performed By: #### 5 7021-8 ####[facility] LABCLIA [id number] [place] [address] [place] Erythrocyte distribution width (RBC) [Ratio] 21.1 % High 11.5-15.0 [facility] Comment on above: Order Comment: Speci men Type: BLOOD SPECIMENOrdering Facility: [facility] Address: [address] [place] [address] Performed By: #### 5 7021-8 ####[facility] [employer] LABCLIA [id number] [place] [address] [place] Hematocrit (Bld) [Volume fraction] 30.8 % Low 39.0-51.0 [facility] Comment on above: Order Comment: Speci men Type: BLOOD SPECIMENOrdering Facility: [facility] Address: [address] [place] [address] Performed By: #### 5 7021-8 ####[facility] [employer] LABIA [id number] [place] [address] [place] Hemoglobin (Bld) [Mass/Vol] 9.9 g/dL Low 13.0-17.0 [facility] Comment on above: Order Comment: Speci men Type: BLOOD SPECIMENOrdering Facility: [facility] Address: [address] [place] [address] Performed By: #### 5 7021-8 ####MAAILREZA [facility] [employer] LABCLIA [id number] [place] [address] [place] Immature granulocytes (Bld) [#/Vol] 0.04 10*3/uL Normal <0.10 [facility] Comment on above: Order Comment: Speci men Type: BLOOD SPECIMENOrdering Facility: [facility] Address: [address] [place] [address] Performed By: #### 5 7021-8 ####[facility] [employer] LABCLIA [id number] [place] [address] [facility] [place] Immature granulocytes/100 WBC (Bld) 0.8 % Normal [facility] Comment on above: Order Comment: Speci men Type: BLOOD SPECIMENOrdering Facility: [facility] Address: [address] [place] [address] Performed By: #### 5 7021-8 ####[facility] LABCLIA [id number] [place] [address] [facility] [place] Lymphocytes (Bld) [#/Vol] 1.05 10*3/uL Normal 1.00-4.00 [facility] Comment on above: Order Comment: Speci men Type: BLOOD SPECIMENOrdering Facility: [facility] Address: [address] [place] [address] Performed By: #### 5 7021-8 ####[facility]LLO[facility] [employer] LABCLIA [id number] [address] OF [facility] Lymphocytes/100 WBC (Bld) 20.3 % Normal [facility] Comment on above: Order Comment: Speci men Type: BLOOD SPECIMENOrdering Facility: [facility] Address: [address] [place] [address] Performed By: #### 5 7021-8 ####BELLOALIREZA [employer] LABCLIA [id number] [place] [address] [place] MCH (RBC) [Entitic mass] 35.4 pg High 26.0-34.0 [facility] Comment on above: Order Comment: Speci men Type: BLOOD SPECIMENOrdering Facility: [facility] Address: [address] [place] [address] Performed By: #### 5 7021-8 ####[facility] [employer] [facility] LABCLIA [id number] [place] [address] [place] MCHC (RBC) [Mass/Vol] 32.1 g/dL Normal 30.5-36.0 [facility] Comment on above: Order Comment: Speci men Type: BLOOD SPECIMENOrdering Facility: [facility] Address: [address] [place] [address] Performed By: #### 5 7021-8 ####[facility] LABCLIA [id number] [place] [address] [place] MCV (RBC) [Entitic vol] 110.0 fL High 80.0-100.0 [facility] Comment on above: Order Comment: Speci men Type: BLOOD SPECIMENOrdering Facility: [facility] Address: [address] [place] [address] Performed By: #### 5 7021-8 ####[facility] LABCLIA [id number] [place] [address] [place] Monocytes (Bld) [#/Vol] 0.38 10*3/uL Normal <0.87 [facility] Comment on above: Order Comment: Speci men Type: BLOOD SPECIMENOrdering Facility: [facility] Address: [address] [place] [address] Performed By: #### 5 7021-8 ####[facility] LABCLIA [id number] [place] [address] [place] Monocytes/100 WBC (Bld) 7.4 % Normal [facility] Comment on above: Order Comment: Speci men Type: BLOOD SPECIMENOrdering Facility: [facility] Address: [address] [place] [address] Performed By: #### 5 7021-8 ####[employer] [facility] LABCLIA [id number] [place] [address] [place] Neutrophils (Bld) [#/Vol] 3.55 10*3/uL Normal 1.45-7.50 [facility] Comment on above: Order Comment: Speci men Type: BLOOD SPECIMENOrdering Facility: [facility] Address: [address] [place] [address] Performed By: #### 5 7021-8 ####[facility] LABCLIA [id number] [place] [address] [place] Neutrophils/100 WBC (Bld) 68.8 % Normal [facility] Comment on above: Order Comment: Speci men Type: BLOOD SPECIMENOrdering Facility: [facility] Address: [address] [place] [address] Performed By: #### 5 7021-8 ####[facility] LABCLIA [id number] [place] [address] [place] Nucleated RBC (Bld) [#/Vol] Normal [facility] Comment on above: Order Comment: Speci men Type: BLOOD SPECIMENOrdering Facility: [facility] Address: [address] [place] [address] Performed By: #### 5 7021-8 ####[facility] LABCLIA [id number] [place] [address] [place] Nucleated RBC/100 WBC (Bld) [Ratio] Normal [facility] Comment on above: Order Comment: Speci men Type: BLOOD SPECIMENOrdering Facility: [facility] Address: [address] [place] [address] Performed By: #### 5 7021-8 ####[facility] LABCLIA [id number] [place] [address] [place] Platelet mean volume (Bld) [Entitic vol] 11.2 fL Normal 9.0-12.7 [facility] Comment on above: Order Comment: Speci men Type: BLOOD SPECIMENOrdering Facility: [facility] Address: [address] [place] [address] Performed By: #### 5 7021-8 ####[facility] LABCLIA [id number] [place] [address] [place] Platelets (Bld) [#/Vol] 382 10*3/uL Normal 150-400 [facility] Comment on above: Order Comment: Speci men Type: BLOOD SPECIMENOrdering Facility: [facility] Address: [address] [place] [address] Performed By: #### 5 7021-8 ####[facility] LABCLIA [id number] [place] [address] [place] RBC (Bld) [#/Vol] 2.80 10*6/uL Low 4.20-6.00 [facility] Comment on above: Order Comment: Speci men Type: BLOOD SPECIMENOrdering Facility: [facility] Address: [address] [place] [address] Performed By: #### 5 7021-8 ####[facility] LABCLIA [id number] [place] [address] [place] WBC (Bld) [#/Vol] 5.16 10*3/uL Normal 3.70-11.00 [facility] Comment on above: Order Comment: Speci men Type: BLOOD SPECIMENOrdering Facility: [facility] Address: [address] [place] [address] Performed By: #### 5 7021-8 ####[facility] LABCLIA [id number] [place] [address] [facility] [place] ECG COMPLETEon 03-20-2023 ECG COMPLETE Normal [facility] ED PROV NOTEon 03-20-2023 ED PROV NOTE Normal [facility] XR FOOT 3V AP/LAT/OBL RTon 0 03-20-2023 XR FOOT 3V AP/LAT/OBL RT Normal [facility] aPTT PPPon 03-20-2023 aPTT Coag (PPP) [Time] 29.2 s Normal 23.0-32.4 [facility] Comment on above: Order Comment: Speci men Type: BLOOD SPECIMENOrdering Facility: [facility] Address: [address] [place] [address] Performed By: #### 1 4979-9 ####[facility] LABCLIA [id number] [place] [address] [facility] [place] CNOVSPon 03-11-2023 CNOVSP Normal [facility] CBC W Auto Differential pane l (Bld)on 03-09-2023 Basophils (Bld) [#/Vol] 0.09 10*3/uL Normal <0.11 [facility] Comment on above: Order Comment: Speci men Type: BLOOD SPECIMENOrdering Facility: [facility] Address: [address] [place] [address] Performed By: #### 5 7021-8 ####[facility] LABCLIA [id number] [place] [address] [place] Basophils/100 WBC (Bld) 3.5 % Normal [facility] Comment on above: Order Comment: Speci men Type: BLOOD SPECIMENOrdering Facility: [facility] Address: [address] [place] [address] Performed By: #### 5 7021-8 ####[facility] LABCLIA [id number] [place] [address] [place] Differential cell count method Nom (Bld) Auto Normal [facility] Comment on above: Order Comment: Speci men Type: BLOOD SPECIMENOrdering Facility: [facility] Address: [address] [place] [address] Performed By: #### 5 7021-8 ####[facility] LABCLIA [id number] [place] [address] [place] Eosinophils (Bld) [#/Vol] 0.09 10*3/uL Normal <0.46 [facility] Comment on above: Order Comment: Speci men Type: BLOOD SPECIMENOrdering Facility: [facility] Address: [address] [place] [address] Performed By: #### 5 7021-8 ####[facility] LABCLIA [id number] [place] [address] [facility] [place] Eosinophils/100 WBC (Bld) 3.5 % Normal [facility] Comment on above: Order Comment: Speci men Type: BLOOD SPECIMENOrdering Facility: [facility] Address: [address] [place] [address] Performed By: #### 5 7021-8 ####[facility] LABCLIA [id number] [place] [address] [place] Erythrocyte distribution width (RBC) [Ratio] 20.2 % High 11.5-15.0 [facility] Comment on above: Order Comment: Speci men Type: BLOOD SPECIMENOrdering Facility: [facility] Address: [address] [place] [address] Performed By: #### 5 7021-8 ####[employer] LABCLIA [id number] [place] [address] [place] Hematocrit (Bld) [Volume fraction] 28.7 % Low 39.0-51.0 [facility] Comment on above: Order Comment: Speci men Type: BLOOD SPECIMENOrdering Facility: [facility] Address: [address] [place] [address] Performed By: #### 5 7021-8 ####[facility] LABCLIA [id number] [place] [address] [place] Hemoglobin (Bld) [Mass/Vol] 8.8 g/dL Low 13.0-17.0 [facility] Comment on above: Order Comment: Speci men Type: BLOOD SPECIMENOrdering Facility: [facility] Address: [address] [place] [address] Performed By: #### 5 7021-8 ####[facility] LABCLIA [id number] [place] [address] [place] Immature granulocytes (Bld) [#/Vol] 10*3/uL Normal <0.10 [facility] Comment on above: Order Comment: Speci men Type: BLOOD SPECIMENOrdering Facility: [facility] Address: [address] [place] [address] Performed By: #### 5 7021-8 ####[facility] LABCLIA [id number] [place] [address] [place] Immature granulocytes/100 WBC (Bld) 0.0 % Normal [facility] Comment on above: Order Comment: Speci men Type: BLOOD SPECIMENOrdering Facility: [facility] Address: [address] [place] [address] Performed By: #### 5 7021-8 ####[employer] [facility] LABCLIA [id number] [place] [address] [place] Lymphocytes (Bld) [#/Vol] 0.81 10*3/uL Low 1.00-4.00 [facility] Comment on above: Order Comment: Speci men Type: BLOOD SPECIMENOrdering Facility: [facility] Address: [address] [place] [address] Performed By: #### 5 7021-8 ####[facility]ALIREZA [facility] LABCLIA [id number] [address] [place] Lymphocytes/100 WBC (Bld) 31.6 % Normal [facility] Comment on above: Order Comment: Speci men Type: BLOOD SPECIMENOrdering Facility: [facility] Address: [address] [place] [address] Performed By: #### 5 7021-8 ####[facility] LABCLIA [id number] [place] [address] [place] MCH (RBC) [Entitic mass] 34.5 pg High 26.0-34.0 [facility] Comment on above: Order Comment: Speci men Type: BLOOD SPECIMENOrdering Facility: [facility] Address: [address] [place] [address] Performed By: #### 5 7021-8 ####[facility] LABCLIA [id number] [place] [address] [place] MCHC (RBC) [Mass/Vol] 30.7 g/dL Normal 30.5-36.0 [facility] Comment on above: Order Comment: Speci men Type: BLOOD SPECIMENOrdering Facility: [facility] Address: [address] [place] [address] Performed By: #### 5 7021-8 ####[facility] LABCLIA [id number] [place] [address] [place] MCV (RBC) [Entitic vol] 112.5 fL High 80.0-100.0 [facility] Comment on above: Order Comment: Speci men Type: BLOOD SPECIMENOrdering Facility: [facility] Address: [address] [place] [address] Performed By: #### 5 7021-8 ####[facility] LABCLIA [id number] [place] [address] [place] Monocytes (Bld) [#/Vol] 0.15 10*3/uL Normal <0.87 [facility] Comment on above: Order Comment: Speci men Type: BLOOD SPECIMENOrdering Facility: [facility] Address: [address] [place] [address] Performed By: #### 5 7021-8 ####[facility] LABCLIA [id number] [place] [address] [place] Monocytes/100 WBC (Bld) 5.9 % Normal [facility] Comment on above: Order Comment: Speci men Type: BLOOD SPECIMENOrdering Facility: [facility] Address: [address] [place] [address] Performed By: #### 5 7021-8 ####[facility] LABCLIA [id number] [place] [address] [place] Neutrophils (Bld) [#/Vol] 1.42 10*3/uL Low 1.45-7.50 [facility] Comment on above: Order Comment: Speci men Type: BLOOD SPECIMENOrdering Facility: [facility] Address: [address] [place] [address] Performed By: #### 5 7021-8 ####[facility] LABCLIA [id number] [place] [address] [place] Neutrophils/100 WBC (Bld) 55.5 % Normal [facility] Comment on above: Order Comment: Speci men Type: BLOOD SPECIMENOrdering Facility: [facility] Address: [address] [place] [address] Performed By: #### 5 7021-8 ####[facility] LABCLIA [id number] [place] [address] [place] Nucleated RBC (Bld) [#/Vol] Normal [facility] Comment on above: Order Comment: Speci men Type: BLOOD SPECIMENOrdering Facility: [facility] Address: [address] [place] [address] Performed By: #### 5 7021-8 ####[facility] LABCLIA [id number] [place] [address] [place] Nucleated RBC/100 WBC (Bld) [Ratio] Normal [facility] Comment on above: Order Comment: Speci men Type: BLOOD SPECIMENOrdering Facility: [facility] Address: [address] [place] [address] Performed By: #### 5 7021-8 ####[facility] LABCLIA [id number] [place] [address] [place] Platelet mean volume (Bld) [Entitic vol] 10.4 fL Normal 9.0-12.7 [facility] Comment on above: Order Comment: Speci men Type: BLOOD SPECIMENOrdering Facility: [facility] Address: [address] [place] [address] Performed By: #### 5 7021-8 ####[facility] LABCLIA [id number] [place] [address] [place] Platelets (Bld) [#/Vol] 359 10*3/uL Normal 150-400 [facility] Comment on above: Order Comment: Speci men Type: BLOOD SPECIMENOrdering Facility: [facility] Address: [address] [place] [address] Performed By: #### 5 7021-8 ####[facility] LABCLIA [id number] [place] [address] [place] RBC (Bld) [#/Vol] 2.55 10*6/uL Low 4.20-6.00 [facility] Comment on above: Order Comment: Speci men Type: BLOOD SPECIMENOrdering Facility: [facility] Address: [address] [place] [address] Performed By: #### 5 7021-8 ####[facility] LABCLIA [id number] [place] [address] [place] WBC (Bld) [#/Vol] 2.56 10*3/uL Low 3.70-11.00 [facility] Comment on above: Order Comment: Speci men Type: BLOOD SPECIMENOrdering Facility: [facility] Address: [address] [place] [address] Performed By: #### 5 7021-8 ####MAALIREZA [facility] LABCLIA [id number] [place] [address] [place] Basophils (Bld) [#/Vol] 0.09 10*3/uL <0.11 k/uL [facility] Basophils/100 WBC (Bld) 3.5 % [facility] Differential cell count method Nom (Bld) Auto [facility] Eosinophils (Bld) [#/Vol] 0.09 10*3/uL <0.46 k/uL [facility] Eosinophils/100 WBC (Bld) 3.5 % [facility] Erythrocyte distribution width (RBC) [Ratio] 20.2 % High 11.5 - 15.0 % [facility] Hematocrit (Bld) [Volume fraction] 28.7 % Low 39.0 - 51.0 % [facility] Hemoglobin (Bld) [Mass/Vol] 8.8 g/dL Low 13.0 - 17.0 g/[facility] Immature granulocytes (Bld) [#/Vol] <0.10 k/uL [facility] Immature granulocytes/100 WBC (Bld) 0.0 % [facility] Lymphocytes (Bld) [#/Vol] 0.81 10*3/uL Low 1.00 - 4.00 k/uL [facility] Lymphocytes/100 WBC (Bld) 31.6 % [facility] MCH (RBC) [Entitic mass] 34.5 pg High 26.0 - 34.0 pg [facility] MCHC (RBC) [Mass/Vol] 30.7 g/dL 30.5 - 36.0 g/dL [facility] MCV (RBC) [Entitic vol] 112.5 fL High 80.0 - 100.0 fL [facility] Monocytes (Bld) [#/Vol] 0.15 10*3/uL <0.87 k/uL [facility] Monocytes/100 WBC (Bld) 5.9 % [facility] Neutrophils (Bld) [#/Vol] 1.42 10*3/uL Low 1.45 - 7.50 k/uL [facility] Neutrophils/100 WBC (Bld) 55.5 % [facility] Nucleated RBC (Bld) [#/Vol] [facility] Nucleated RBC/100 WBC (Bld) [Ratio] [facility] Platelet mean volume (Bld) [Entitic vol] 10.4 fL 9.0 - 12.7 fL [facility] Platelets (Bld) [#/Vol] 359 10*3/uL 150 - 400 k/uL [facility] RBC (Bld) [#/Vol] 2.55 10*6/uL Low 4.20 - 6.00 m/uL [facility] WBC (Bld) [#/Vol] 2.56 10*3/uL Low 3.70 - 11.00 k/uL [facility] Comprehensive metabolic 2000 panelon 03-09-2023 Albumin [Mass/Vol] 3.5 g/dL Normal 3.5-5.7 [facility] Comment on above: Order Comment: Speci men Type: BLOOD SPECIMENOrdering Facility: [facility] Address: [address] [place] [id number] Performed By: #### 2 4323-8 ####[facility] LABCLRENATA [id number] [place] [address] [place] ALP [Catalytic activity/Vol] 75 U/L Normal 34-104 [facility] Comment on above: Order Comment: Speci men Type: BLOOD SPECIMENOrdering Facility: [facility] Address: [address] [place] [address] Performed By: #### 2 4323-8 ####[facility] LABCLIA [id number] [place] [address] [place] ALT [Catalytic activity/Vol] 27 U/L Normal 7-52 [facility] Comment on above: Order Comment: Speci men Type: BLOOD SPECIMENOrdering Facility: [facility] Address: [address] [place] [address] Performed By: #### 2 4323-8 ####[facility] LABCLIA [id number] [place] [address] [place] Anion gap [Moles/Vol] 5 mmol/L Low 9-18 [facility] Comment on above: Order Comment: Speci men Type: BLOOD SPECIMENOrdering Facility: [facility] Address: [address] [place] [address] Performed By: #### 2 4323-8 ####[facility] LABCLIA [id number] [place] [address] [place] AST [Catalytic activity/Vol] 24 U/L Normal 13-39 [facility] Comment on above: Order Comment: Speci men Type: BLOOD SPECIMENOrdering Facility: [facility] Address: [address] [place] [address] Performed By: #### 2 4323-8 ####MAALIREZA [facility] LABCLIA [id number] [place] [address] [place] Bilirubin [Mass/Vol] 0.8 mg/dL Normal 0.3-1.0 [facility] Comment on above: Order Comment: Speci men Type: BLOOD SPECIMENOrdering Facility: [facility] Address: [address] [place] [address] Result Comment: Use of this assay is not recommended for patients undergoing treatment with eltrombopag due to the potential for falsely elevated results. Performed By: #### 2 4323-8 ####MAALIREZA [facility] LABCLIA [id number] [place] [address] [place] Calcium [Mass/Vol] 8.6 mg/dL Normal 8.6-10.3 [facility] Comment on above: Order Comment: Speci men Type: BLOOD SPECIMENOrdering Facility: [facility] Address: [address] [place] [address] Performed By: #### 2 4323-8 ####[facility] LABCLIA [id number] [place] [address] [place] Chloride [Moles/Vol] 104 mmol/L Normal 101-111 [facility] Comment on above: Order Comment: Speci men Type: BLOOD SPECIMENOrdering Facility: [facility] Address: [address] [place] [address] Performed By: #### 2 4323-8 ####[facility] [employer] LABCLIA [id number] [place] [address] [place] CO2 [Moles/Vol] 31 mmol/L Normal 21-31 [facility] Comment on above: Order Comment: Speci men Type: BLOOD SPECIMENOrdering Facility: [facility] Address: [address] [place] [address] Performed By: #### 2 4323-8 ####[facility] [employer] LABCLIA [id number] [place] [address] [place] Creatinine [Mass/Vol] 1.01 mg/dL Normal 0.60-1.30 [facility] Comment on above: Order Comment: Speci men Type: BLOOD SPECIMENOrdering Facility: [facility] Address: [address] [place] [address] Result Comment: Use of this assay is not recommended for patients undergoing treatment with phenindione, due to the potential for falsely depressed results. Performed By: #### 2 4323-8 ####[facility] LABCLIA [id number] [place] [address] [place] ESTIMATED GLOMERULAR FILTRATION RATE 72 mL/min/1.73m??? Normal >=60 [facility] Comment on above: Order Comment: Elfego gilbert Type: BLOOD SPECIMENOrdering Facility: [facility] Address: [address] [place] [address] Result Comment: Concepción mated Glomerular Filtration Rate (eGFR) is calculated using the 2020 CKD-EPI creatinine equation. This equation utilizes serum creatinine, sex, and age as parameters. The creatinine assay has traceable calibration to isotope dilution-mass spectrometry. Refer to KDIGO guidelines for clinical interpretation. In patients with unstable renal function, e.g. those with acute kidney injury, the eGFR may not accurately reflect actual GFR. Performed By: #### 2 4323-8 ####[facility] LABCLIA [id number] [place] [address] [place] Glucose [Mass/Vol] 126 mg/dL High 74-99 [facility] Comment on above: Order Comment: Elfego gilbert Type: BLOOD SPECIMENOrdering Facility: [facility] Address: [address] [place] [address] Result Comment: The [place] [employer] (ADA) provides guidance for cutoff values for fasting glucose and random glucose. The ADA defines fasting as no caloric intake for at least 8 hours. Fasting plasma glucose results between 100 to 125 mg/dL indicate increased risk for diabetes (prediabetes).Fasting plasma glucose results greater than or equal to 126 mg/dL meet the criteria for diagnosis of diabetes. In the absence of unequivocal hyperglycemia, results should be confirmed by repeat testing. In a patient with classic symptoms of hyperglycemia or hyperglycemic crisis, random plasma glucose results greater than or equal to 200 mg/dL meet the criteria for diagnosis of diabetes.Reference: Standards of Medical Care in Diabetes 2016, [place] [employer] Association. Diabetes Care. 2016.39(Suppl 1). Performed By: #### 2 4323-8 ####[facility] LABCLIA [id number] [place] [address] [place] Potassium [Moles/Vol] 4.0 mmol/L Normal 3.6-5.1 [facility] Comment on above: Order Comment: Speci men Type: BLOOD SPECIMENOrdering Facility: [facility] Address: [address] [place] [address] Performed By: #### 2 4323-8 ####[facility] LABCLIA [id number] [place] [address] [place] Protein [Mass/Vol] 5.6 g/dL Low 6.4-8.9 [facility] Comment on above: Order Comment: Speci men Type: BLOOD SPECIMENOrdering Facility: [facility] Address: [address] [place] [address] Performed By: #### 2 4323-8 ####[facility] LABCLIA [id number] [place] [address] [place] Sodium [Moles/Vol] 140 mmol/L Normal 136-144 [facility] Comment on above: Order Comment: Speci men Type: BLOOD SPECIMENOrdering Facility: [facility] Address: [address] [place] [address] Performed By: #### 2 4323-8 ####[facility] LABCLIA [id number] [place] [address] [place] Urea nitrogen [Mass/Vol] 26 mg/dL High 7-25 [facility] Comment on above: Order Comment: Speci men Type: BLOOD SPECIMENOrdering Facility: [facility] Address: [address] [place] [address] Performed By: #### 2 4323-8 ####[facility] SAUC[facility] LABCLIA [id number] [place] [address] [place] Albumin [Mass/Vol] 3.5 g/dL 3.5 - 5.7 g/dL [facility] ALP [Catalytic activity/Vol] 75 U/L 34 - 104 U/L [facility] ALT [Catalytic activity/Vol] 27 U/L 7 - 52 U/L [facility] Anion gap [Moles/Vol] 5 mmol/L Low 9 - 18 mmol/L [facility] AST [Catalytic activity/Vol] 24 U/L 13 - 39 U/L [facility] Bilirubin [Mass/Vol] 0.8 mg/dL 0.3 - 1 .0 mg/dL [facility] Calcium [Mass/Vol] 8.6 mg/dL 8.6 - 10. 3 mg/dL [facility] Chloride [Moles/Vol] 104 mmol/L 101 - 1 11 mmol/L [facility] CO2 [Moles/Vol] 31 mmol/L 21 - 31 mmol/L [facility] Creatinine [Mass/Vol] 1.01 mg/dL 0.60 - 1.30 mg/dL [facility] Estimated Glomerular Filtration Rate 72 mL/min/1.73m >=60 mL/min/1.7 3m [facility] Glucose [Mass/Vol] 126 mg/dL High 74 - 99 mg/dL [facility] Potassium [Moles/Vol] 4.0 mmol/L 3.6 - 5.1 mmol/L [facility] Protein [Mass/Vol] 5.6 g/dL Low 6.4 - 8.9 g/dL [facility] Sodium [Moles/Vol] 140 mmol/L 136 - 144 mmol/L [facility] Urea nitrogen [Mass/Vol] 26 mg/dL High 7 - 25 mg/dL [facility] CBC W Auto Differential pane l (Bld)on 02-09-2023 Basophils (Bld) [#/Vol] 0.21 10*3/uL High <0.11 [facility] Comment on above: Order Comment: Speci men Type: BLOOD SPECIMENOrdering Facility: [facility] Address: [address] [place] [address] Performed By: #### 5 7021-8 ####[facility] LABCLIA [id number] [place] [address] [place] Basophils/100 WBC (Bld) 5.8 % Normal [facility] Comment on above: Order Comment: Speci men Type: BLOOD SPECIMENOrdering Facility: [facility] Address: [address] [place] [address] Performed By: #### 5 7021-8 ####[facility] [employer] [facility] LABCLIA [id number] [place] [address] [place] Differential cell count method Nom (Bld) Auto Normal [facility] Comment on above: Order Comment: Speci men Type: BLOOD SPECIMENOrdering Facility: [facility] Address: [address] [place] [address] Performed By: #### 5 7021-8 ####PEG SAUCED[facility] LABCLIA [id number] [place] [address] [place] Eosinophils (Bld) [#/Vol] 0.07 10*3/uL Normal <0.46 [facility] Comment on above: Order Comment: Speci men Type: BLOOD SPECIMENOrdering Facility: [facility] Address: [address] [place] [address] Performed By: #### 5 7021-8 ####MAALIREZA YAGN LABCLIA [id number] [address] Eosinophils/100 WBC (Bld) 1.9 % Normal [facility] Comment on above: Order Comment: Speci men Type: BLOOD SPECIMENOrdering Facility: [facility] Address: [address] [place] [address] Performed By: #### 5 7021-8 ####[facility] LABCLIA [id number] [address] [place] Erythrocyte distribution width (RBC) [Ratio] 19.0 % High 11.5-15.0 [facility] Comment on above: Order Comment: Speci men Type: BLOOD SPECIMENOrdering Facility: [facility] Address: [address] [place] [address] Performed By: #### 5 7021-8 ####[facility] SAUC[facility] LABCLIA [id number] [place] [address] [facility] Hematocrit (Bld) [Volume fraction] 27.5 % Low 39.0-51.0 [facility] Comment on above: Order Comment: Speci men Type: BLOOD SPECIMENOrdering Facility: [facility] Address: [address] [place] [address] Performed By: #### 5 7021-8 ####[facility] LABCLIA [id number] [place] [address] [place] Hemoglobin (Bld) [Mass/Vol] 8.6 g/dL Low 13.0-17.0 [facility] Comment on above: Order Comment: Speci men Type: BLOOD SPECIMENOrdering Facility: [facility] Address: [address] [place] [address] Performed By: #### 5 7021-8 ####[facility] LABCLIA [id number] [place] [address] [place] Immature granulocytes (Bld) [#/Vol] 10*3/uL Normal <0.10 [facility] Comment on above: Order Comment: Speci men Type: BLOOD SPECIMENOrdering Facility: [facility] Address: [address] [place] [address] Performed By: #### 5 7021-8 ####MAALIREZA YANG LABCLIA [id number] [place] [address] [place] Immature granulocytes/100 WBC (Bld) 0.3 % Normal [facility] Comment on above: Order Comment: Speci men Type: BLOOD SPECIMENOrdering Facility: [facility] Address: [address] [place] [address] Performed By: #### 5 7021-8 ####[facility] SAUC[facility] LABCLIA [id number] [place] [address] [place] Lymphocytes (Bld) [#/Vol] 0.90 10*3/uL Low 1.00-4.00 [facility] Comment on above: Order Comment: Speci men Type: BLOOD SPECIMENOrdering Facility: [facility] Address: [address] [place] [address] Performed By: #### 5 7021-8 ####PEG SAUCED[facility] GRE[facility] LABCLIA [id number] [place] [address] [place] Lymphocytes/100 WBC (Bld) 24.9 % Normal [facility] Comment on above: Order Comment: Speci men Type: BLOOD SPECIMENOrdering Facility: [facility] Address: [address] [place] [address] Performed By: #### 5 7021-8 ####[facility] LABCLIA [id number] [place] [address] [place] MCH (RBC) [Entitic mass] 36.0 pg High 26.0-34.0 [facility] Comment on above: Order Comment: Speci men Type: BLOOD SPECIMENOrdering Facility: [facility] Address: [address] [place] [address] Performed By: #### 5 7021-8 ####[facility] LABCLIA [id number] [address] [place] MCHC (RBC) [Mass/Vol] 31.3 g/dL Normal 30.5-36.0 [facility] Comment on above: Order Comment: Speci men Type: BLOOD SPECIMENOrdering Facility: [facility] Address: [address] [place] [address] Performed By: #### 5 7021-8 ####[facility] LABCLIA [id number] [place] [address] [place] MCV (RBC) [Entitic vol] 115.1 fL High 80.0-100.0 [facility] Comment on above: Order Comment: Speci men Type: BLOOD SPECIMENOrdering Facility: [facility] Address: [address] [place] [address] Performed By: #### 5 7021-8 ####[facility] LABCLIA [id number] [place] [address] [facility] OF [place] Monocytes (Bld) [#/Vol] 0.17 10*3/uL Normal <0.87 [facility] Comment on above: Order Comment: Speci men Type: BLOOD SPECIMENOrdering Facility: [facility] Address: [address] [place] [address] Performed By: #### 5 7021-8 ####PEG SAUCED[facility] GRE[facility] LABCLIA [id number] [place] [address] [place] Monocytes/100 WBC (Bld) 4.7 % Normal [facility] Comment on above: Order Comment: Speci men Type: BLOOD SPECIMENOrdering Facility: [facility] Address: [address] [place] [address] Performed By: #### 5 7021-8 ####[facility]UC[facility] GRE[facility] LABCLIA [id number] [place] [address] [place] Neutrophils (Bld) [#/Vol] 2.26 10*3/uL Normal 1.45-7.50 [facility] Comment on above: Order Comment: Speci men Type: BLOOD SPECIMENOrdering Facility: [facility] Address: [address] [place] [address] Performed By: #### 5 7021-8 ####[facility] SAUC[facility] GRE[facility] LABCLIA [id number] [place] [address] [place] Neutrophils/100 WBC (Bld) 62.4 % Normal [facility] Comment on above: Order Comment: Speci men Type: BLOOD SPECIMENOrdering Facility: [facility] Address: [address] [place] [address] Performed By: #### 5 7021-8 ####[facility] LABCLIA [id number] [place] [address] [place] Nucleated RBC (Bld) [#/Vol] Normal [facility] Comment on above: Order Comment: Speci men Type: BLOOD SPECIMENOrdering Facility: [facility] Address: [address] [place] [address] Performed By: #### 5 7021-8 ####[facility] LABCLIA [id number] [place] [address] [place] Nucleated RBC/100 WBC (Bld) [Ratio] Normal [facility] Comment on above: Order Comment: Speci men Type: BLOOD SPECIMENOrdering Facility: [facility] Address: [address] [place] [address] Performed By: #### 5 7021-8 ####[facility] LABCLIA [id number] [place] [address] [place] Platelet mean volume (Bld) [Entitic vol] 11.2 fL Normal 9.0-12.7 [facility] Comment on above: Order Comment: Speci men Type: BLOOD SPECIMENOrdering Facility: [facility] Address: [address] [place] [address] Performed By: #### 5 7021-8 ####[facility] LABCLIA [id number] [place] [address] [place] Platelets (Bld) [#/Vol] 289 10*3/uL Normal 150-400 [facility] Comment on above: Order Comment: Speci men Type: BLOOD SPECIMENOrdering Facility: [facility] Address: [address] [place] [address] Performed By: #### 5 7021-8 ####[facility] LABCLIA [id number] [place] [address] [place] RBC (Bld) [#/Vol] 2.39 10*6/uL Low 4.20-6.00 [facility] Comment on above: Order Comment: Speci men Type: BLOOD SPECIMENOrdering Facility: [facility] Address: [address] [place] [address] Performed By: #### 5 7021-8 ####[facility] [employer] LABCLIA [id number] [place] [address] [place] WBC (Bld) [#/Vol] 3.62 10*3/uL Low 3.70-11.00 [facility] Comment on above: Order Comment: Speci men Type: BLOOD SPECIMENOrdering Facility: [facility] Address: [place] [address] Performed By: #### 5 7021-8 ####[facility] LABEVANIA [id number] [place] [address] [place] Basophils (Bld) [#/Vol] 0.21 10*3/uL High <0.11 k/uL [facility] Basophils/100 WBC (Bld) 5.8 % [facility] Differential cell count method Nom (Bld) Auto [facility] Eosinophils (Bld) [#/Vol] 0.07 10*3/uL <0.46 k/uL [facility] Eosinophils/100 WBC (Bld) 1.9 % [facility] Erythrocyte distribution width (RBC) [Ratio] 19.0 % High 11.5 - 15.0 % [facility] Hematocrit (Bld) [Volume fraction] 27.5 % Low 39.0 - 51.0 % [facility] Hemoglobin (Bld) [Mass/Vol] 8.6 g/dL Low 13.0 - 17.0 g/dL [facility] Immature granulocytes (Bld) [#/Vol] <0.10 k/uL [facility] Immature granulocytes/100 WBC (Bld) 0.3 % [facility] Lymphocytes (Bld) [#/Vol] 0.90 10*3/uL Low 1.00 - 4.00 k/uL [facility] Lymphocytes/100 WBC (Bld) 24.9 % [facility] MCH (RBC) [Entitic mass] 36.0 pg High 26.0 - 34.0 pg [facility] MCHC (RBC) [Mass/Vol] 31.3 g/dL 30.5 - 36.0 g/dL [facility] MCV (RBC) [Entitic vol] 115.1 fL High 80.0 - 100.0 fL [facility] Monocytes (Bld) [#/Vol] 0.17 10*3/uL <0.87 k/uL [facility] Monocytes/100 WBC (Bld) 4.7 % [facility] Neutrophils (Bld) [#/Vol] 2.26 10*3/uL 1.45 - 7.50 k/uL [facility] Neutrophils/100 WBC (Bld) 62.4 % [facility] Nucleated RBC (Bld) [#/Vol] [facility] Nucleated RBC/100 WBC (Bld) [Ratio] [facility] Platelet mean volume (Bld) [Entitic vol] 11.2 fL 9.0 - 12.7 fL [facility] Platelets (Bld) [#/Vol] 289 10*3/uL 150 - 400 k/uL [facility] RBC (Bld) [#/Vol] 2.39 10*6/uL Low 4.20 - 6.00 m/uL [facility] WBC (Bld) [#/Vol] 3.62 10*3/uL Low 3.70 - 11.00 k/uL [facility] Comprehensive metabolic 2000 panelon 02-09-2023 Albumin [Mass/Vol] 3.5 g/dL Normal 3.5-5.7 [facility] Comment on above: Order Comment: Speci men Type: BLOOD SPECIMENOrdering Facility: [facility] Address: [address] [place] [address] Performed By: #### 2 4323-8 ####[employer] LABCLIA [id number] [place] [address] [place] ALP [Catalytic activity/Vol] 58 U/L Normal 34-104 [facility] Comment on above: Order Comment: Speci men Type: BLOOD SPECIMENOrdering Facility: [facility] Address: [address] [place] [address] Performed By: #### 2 4323-8 ####[facility] [employer] LABCLIA [id number] [place] [address] [place] ALT [Catalytic activity/Vol] 22 U/L Normal 7-52 [facility] Comment on above: Order Comment: Speci men Type: BLOOD SPECIMENOrdering Facility: [facility] Address: [address] [place] [address] Performed By: #### 2 4323-8 ####[employer] LABCLIA [id number] [place] [address] [place] Anion gap [Moles/Vol] 3 mmol/L Low 9-18 [facility] Comment on above: Order Comment: Speci men Type: BLOOD SPECIMENOrdering Facility: [facility] Address: [address] [place] [address] Performed By: #### 2 4323-8 ####BELLO[facility] SAUCEDA GREEN LABCLIA [id number] [place] [address] [place] AST [Catalytic activity/Vol] 21 U/L Normal 13-39 [facility] Comment on above: Order Comment: Speci men Type: BLOOD SPECIMENOrdering Facility: [facility] Address: [address] [place] [address] Performed By: #### 2 4323-8 ####[employer] LABCLIA [id number] [place] [address] [place] Bilirubin [Mass/Vol] 1.0 mg/dL Normal 0.3-1.0 [facility] Comment on above: Order Comment: Speci men Type: BLOOD SPECIMENOrdering Facility: [facility] Address: [address] [place] [address] Result Comment: Use of this assay is not recommended for patients undergoing treatment with eltrombopag due to the potential for falsely elevated results. Performed By: #### 2 4323-8 ####[employer] LABCLIA [id number] [place] [address] [place] Calcium [Mass/Vol] 8.6 mg/dL Normal 8.6-10.3 [facility] Comment on above: Order Comment: Speci men Type: BLOOD SPECIMENOrdering Facility: [facility] Address: [address] [place] [address] Performed By: #### 2 4323-8 ####[facility] LABCLIA [id number] [place] [address] [place] Chloride [Moles/Vol] 103 mmol/L Normal 101-111 [facility] Comment on above: Order Comment: Speci men Type: BLOOD SPECIMENOrdering Facility: [facility] Address: [address] [place] [address] Performed By: #### 2 4323-8 ####PEG LLANESCLIA [id number] [place] [address] [place] CO2 [Moles/Vol] 30 mmol/L Normal 21-31 [facility] Comment on above: Order Comment: Speci men Type: BLOOD SPECIMENOrdering Facility: [facility] Address: [address] [place] [address] Performed By: #### 2 4323-8 ####[facility] LABIA [id number] [place] [address] [facility] Creatinine [Mass/Vol] 1.04 mg/dL Normal 0.60-1.30 [facility] Comment on above: Order Comment: Speci men Type: BLOOD SPECIMENOrdering Facility: [facility] Address: [address] [place] [address] Result Comment: Use of this assay is not recommended for patients undergoing treatment with phenindione, due to the potential for falsely depressed results. Performed By: #### 2 4323-8 ####PEG SAUCEDA [employer] MARIO ALBERTOIA [id number] [place] [address] [facility] ESTIMATED GLOMERULAR FILTRATION RATE 69 mL/min/1.73m??? Normal >=60 [facility] Comment on above: Order Comment: Speci men Type: BLOOD SPECIMENOrdering Facility: [facility] Address: [address] [place] [address] Result Comment: Concepción mated Glomerular Filtration Rate (eGFR) is calculated using the 2020 CKD-EPI creatinine equation. This equation utilizes serum creatinine, sex, and age as parameters. The creatinine assay has traceable calibration to isotope dilution-mass spectrometry. Refer to KDIGO guidelines for clinical interpretation. In patients with unstable renal function, e.g. those with acute kidney injury, the eGFR may not accurately reflect actual GFR. Performed By: #### 2 4323-8 ####PEG SAUCED[facility] [employer] LABCLIA [id number] [place] [address] [place] Glucose [Mass/Vol] 160 mg/dL High 74-99 [facility] Comment on above: Order Comment: Speci men Type: BLOOD SPECIMENOrdering Facility: [facility] Address: [address] [place] [address] Result Comment: The [place] Diabetes Association (ADA) provides guidance for cutoff values for fasting glucose and random glucose. The ADA defines fasting as no caloric intake for at least 8 hours. Fasting plasma glucose results between 100 to 125 mg/dL indicate increased risk for diabetes (prediabetes).Fasting plasma glucose results greater than or equal to 126 mg/dL meet the criteria for diagnosis of diabetes. In the absence of unequivocal hyperglycemia, results should be confirmed by repeat testing. In a patient with classic symptoms of hyperglycemia or hyperglycemic crisis, random plasma glucose results greater than or equal to 200 mg/dL meet the criteria for diagnosis of diabetes.Reference: Standards of Medical Care in Diabetes 2016, [place] Diabetes Association. Diabetes Care. 2016.39(Suppl 1). Performed By: #### 2 4323-8 ####[facility] [employer] LABCLIA [id number] [place] [address] [place] Potassium [Moles/Vol] 4.0 mmol/L Normal 3.6-5.1 [facility] Comment on above: Order Comment: Julii men Type: BLOOD SPECIMENOrdering Facility: [facility] Address: [address] [place] [address] Performed By: #### 2 4323-8 ####[facility] LABCLIA [id number] [place] [address] [place] Protein [Mass/Vol] 5.4 g/dL Low 6.4-8.9 [facility] Comment on above: Order Comment: Speci men Type: BLOOD SPECIMENOrdering Facility: [facility] Address: [address] [place] [address] Performed By: #### 2 4323-8 ####[facility] [employer] LABCLIA [id number] [place] [address] [place] Sodium [Moles/Vol] 136 mmol/L Normal 136-144 [facility] Comment on above: Order Comment: Speci men Type: BLOOD SPECIMENOrdering Facility: [facility] Address: [address] [place] [address] Performed By: #### 2 4323-8 ####MA[facility]IRE[facility]UC[facility] [place] LABCLIA [id number] [address] [place] [facility] Urea nitrogen [Mass/Vol] 23 mg/dL Normal 7-25 [facility] Comment on above: Order Comment: Speci men Type: BLOOD SPECIMENOrdering Facility: [facility] Address: [address] [place] [address] Performed By: #### 2 4323-8 ####MAALIREZA [facility] LABCLIA [id number] [place] [address] [facility] Albumin [Mass/Vol] 3.5 g/dL 3.5 - 5.7 g/dL [facility] ALP [Catalytic activity/Vol] 58 U/L 34 - 104 U/L [facility] ALT [Catalytic activity/Vol] 22 U/L 7 - 52 U/L [facility] Anion gap [Moles/Vol] 3 mmol/L Low 9 - 18 mmol/L [facility] AST [Catalytic activity/Vol] 21 U/L 13 - 39 U/L [facility] Bilirubin [Mass/Vol] 1.0 mg/dL 0.3 - 1 .0 mg/dL [facility] Calcium [Mass/Vol] 8.6 mg/dL 8.6 - 10. 3 mg/dL [facility] Chloride [Moles/Vol] 103 mmol/L 101 - 1 11 mmol/L [facility] CO2 [Moles/Vol] 30 mmol/L 21 - 31 mmol/L [facility] Creatinine [Mass/Vol] 1.04 mg/dL 0.60 - 1.30 mg/dL [facility] Estimated Glomerular Filtration Rate 69 mL/min/1.73m >=60 mL/min/1.7 3m [facility] Glucose [Mass/Vol] 160 mg/dL High 74 - 99 mg/dL [facility] Potassium [Moles/Vol] 4.0 mmol/L 3.6 - 5.1 mmol/L [facility] Protein [Mass/Vol] 5.4 g/dL Low 6.4 - 8.9 g/dL [facility] Sodium [Moles/Vol] 136 mmol/L 136 - 144 mmol/L [facility] Urea nitrogen [Mass/Vol] 23 mg/dL 7 - 25 mg/dL [facility] CBC W Auto Differential pane l (Bld)on 02-04-2023 Basophils (Bld) [#/Vol] 0.07 10*3/uL Normal <0.11 [facility] Comment on above: Order Comment: Speci men Type: BLOOD SPECIMENOrdering Facility: [facility] Address: [address] [place] [address] Performed By: #### 5 7021-8 ####[facility] LABCLIA [id number] [place] [address] [place] Basophils/100 WBC (Bld) 2.7 % Normal [facility] Comment on above: Order Comment: Speci men Type: BLOOD SPECIMENOrdering Facility: [facility] Address: [address] [place] [address] Performed By: #### 5 7021-8 ####[facility] LABCLIA [id number] [place] [address] [place] Differential cell count method Nom (Bld) Auto Normal [facility] Comment on above: Order Comment: Speci men Type: BLOOD SPECIMENOrdering Facility: [facility] Address: [address] [place] [address] Performed By: #### 5 7021-8 ####[facility] LABCLIA [id number] [place] [address] [place] Eosinophils (Bld) [#/Vol] 0.05 10*3/uL Normal <0.46 [facility] Comment on above: Order Comment: Speci men Type: BLOOD SPECIMENOrdering Facility: [facility] Address: [address] [place] [address] Performed By: #### 5 7021-8 ####[facility] LABCLIA [id number] [place] [address] [place] Eosinophils/100 WBC (Bld) 2.0 % Normal [facility] Comment on above: Order Comment: Speci men Type: BLOOD SPECIMENOrdering Facility: [facility] Address: [address] [place] [address] Performed By: #### 5 7021-8 ####[facility] LABCLIA [id number] [place] [address] [place] Erythrocyte distribution width (RBC) [Ratio] 19.4 % High 11.5-15.0 [facility] Comment on above: Order Comment: Speci men Type: BLOOD SPECIMENOrdering Facility: [facility] Address: [address] [place] [address] Performed By: #### 5 7021-8 ####PEG YANG LABCLIA [id number] [place] [address] [place] Hematocrit (Bld) [Volume fraction] 28.7 % Low 39.0-51.0 [facility] Comment on above: Order Comment: Speci men Type: BLOOD SPECIMENOrdering Facility: [facility] Address: [address] [place] [address] Performed By: #### 5 7021-8 ####PEG YANG LABCLIA [id number] [place] [address] [place] Hemoglobin (Bld) [Mass/Vol] 9.2 g/dL Low 13.0-17.0 [facility] Comment on above: Order Comment: Speci men Type: BLOOD SPECIMENOrdering Facility: [facility] Address: [address] [place] [address] Performed By: #### 5 7021-8 ####PEG SAUCEDA GREEN LABCLIA [id number] [place] [address] [facility] [place] Immature granulocytes (Bld) [#/Vol] 10*3/uL Normal <0.10 [facility] Comment on above: Order Comment: Speci men Type: BLOOD SPECIMENOrdering Facility: [facility] Address: [address] [place] [address] Performed By: #### 5 7021-8 ####PEG YANG LABCLIA [id number] [address] [place] [facility] Immature granulocytes/100 WBC (Bld) 0.4 % Normal [facility] Comment on above: Order Comment: Speci men Type: BLOOD SPECIMENOrdering Facility: [facility] Address: [address] [place] [address] Performed By: #### 5 7021-8 ####PEG YANG LABCLIA [id number] [place] [address] [place] Lymphocytes (Bld) [#/Vol] 0.90 10*3/uL Low 1.00-4.00 [facility] Comment on above: Order Comment: Speci men Type: BLOOD SPECIMENOrdering Facility: [facility] Address: [address] [place] [address] Performed By: #### 5 7021-8 ####PEG YANG LABCLIA [id number] [address] [place] [facility] Lymphocytes/100 WBC (Bld) 35.3 % Normal [facility] Comment on above: Order Comment: Speci men Type: BLOOD SPECIMENOrdering Facility: [facility] Address: [address] [place] [address] Performed By: #### 5 7021-8 ####PEG SAUCEDA GREEN LABCLIA [id number] [place] [address] [place] MCH (RBC) [Entitic mass] 37.9 pg High 26.0-34.0 [facility] Comment on above: Order Comment: Speci men Type: BLOOD SPECIMENOrdering Facility: [facility] Address: [address] [place] [address] Performed By: #### 5 7021-8 ####PEG YANG LABCLIA [id number] [place] [address] [place] MCHC (RBC) [Mass/Vol] 32.1 g/dL Normal 30.5-36.0 [facility] Comment on above: Order Comment: Speci men Type: BLOOD SPECIMENOrdering Facility: [facility] Address: [address] [place] [address] Performed By: #### 5 7021-8 ####PEG YANG LABCLIA [id number] [place] [address] [place] MCV (RBC) [Entitic vol] 118.1 fL High 80.0-100.0 [facility] Comment on above: Order Comment: Speci men Type: BLOOD SPECIMENOrdering Facility: [facility] Address: [address] [place] [address] Performed By: #### 5 7021-8 ####[facility] LABCLIA [id number] [address] [place] Monocytes (Bld) [#/Vol] 0.19 10*3/uL Normal <0.87 [facility] Comment on above: Order Comment: Speci men Type: BLOOD SPECIMENOrdering Facility: [facility] Address: [address] [place] [address] Performed By: #### 5 7021-8 ####[facility] LABCLIA [id number] [place] [address] [facility] Monocytes/100 WBC (Bld) 7.5 % Normal [facility] Comment on above: Order Comment: Speci men Type: BLOOD SPECIMENOrdering Facility: [facility] Address: [address] [place] [address] Performed By: #### 5 7021-8 ####[facility] LABCLIA [id number] [place] [address] [place] Neutrophils (Bld) [#/Vol] 1.33 10*3/uL Low 1.45-7.50 [facility] Comment on above: Order Comment: Speci men Type: BLOOD SPECIMENOrdering Facility: [facility] Address: [address] [place] [address] Performed By: #### 5 7021-8 ####PEG SAUCEDA GREEN LABCLIA [id number] [place] [address] [place] Neutrophils/100 WBC (Bld) 52.1 % Normal [facility] Comment on above: Order Comment: Speci men Type: BLOOD SPECIMENOrdering Facility: [facility] Address: [address] [place] [address] Performed By: #### 5 7021-8 ####BELLOALIREZA SAUCEDA GREEN LABCLIA [id number] [place] [address] [place] Nucleated RBC (Bld) [#/Vol] Normal [facility] Comment on above: Order Comment: Speci men Type: BLOOD SPECIMENOrdering Facility: [facility] Address: [address] [place] [address] Performed By: #### 5 7021-8 ####PEG SAUCEDA GREEN LABCLIA [id number] [place] [address] [place] Nucleated RBC/100 WBC (Bld) [Ratio] Normal [facility] Comment on above: Order Comment: Speci men Type: BLOOD SPECIMENOrdering Facility: [facility] Address: [address] [place] [address] Performed By: #### 5 7021-8 ####PEG SAUCEDA GREEN LABCLIA [id number] [place] [address] [place] Platelet mean volume (Bld) [Entitic vol] 12.2 fL Normal 9.0-12.7 [facility] Comment on above: Order Comment: Speci men Type: BLOOD SPECIMENOrdering Facility: [facility] Address: [address] [place] [address] Performed By: #### 5 7021-8 ####PEG YANG LABCLIA [id number] [place] [address] [place] Platelets (Bld) [#/Vol] 173 10*3/uL Normal 150-400 [facility] Comment on above: Order Comment: Speci men Type: BLOOD SPECIMENOrdering Facility: [facility] Address: [address] [place] [address] Performed By: #### 5 7021-8 ####MAALIREZA YANG LABCLIA [id number] [place] [address] [place] RBC (Bld) [#/Vol] 2.43 10*6/uL Low 4.20-6.00 [facility] Comment on above: Order Comment: Speci men Type: BLOOD SPECIMENOrdering Facility: [facility] Address: [address] [place] [address] Performed By: #### 5 7021-8 ####[facility] YANG LABCLIA [id number] [place] [address] [place] WBC (Bld) [#/Vol] 2.55 10*3/uL Low 3.70-11.00 [facility] Comment on above: Order Comment: Speci men Type: BLOOD SPECIMENOrdering Facility: [facility] Address: [address] [place] [address] Performed By: #### 5 7021-8 ####[facility] YANG LABCLIA [id number] [place] [address] [facility] [place] CNOVSPon 02-04-2023 CNOVSP Normal [facility] Comprehensive metabolic 2000 panelon 02-04-2023 Albumin [Mass/Vol] 3.7 g/dL Normal 3.5-5.7 [facility] Comment on above: Order Comment: Speci men Type: BLOOD SPECIMENOrdering Facility: [facility] Address: [address] [place] [address] Performed By: #### 2 4323-8 ####[facility] LABCLIA [id number] [place] [address] [place] ALP [Catalytic activity/Vol] 68 U/L Normal 34-104 [facility] Comment on above: Order Comment: Speci men Type: BLOOD SPECIMENOrdering Facility: [facility] Address: [address] [place] [address] Performed By: #### 2 4323-8 ####[facility] LABCLIA [id number] [address] OF [facility] ALT [Catalytic activity/Vol] 27 U/L Normal 7-52 [facility] Comment on above: Order Comment: Speci men Type: BLOOD SPECIMENOrdering Facility: [facility] Address: [address] [place] [address] Performed By: #### 2 4323-8 ####EBLLOALIREZA SAUCEDA GREEN LABCLIA [id number] [address] [place] Anion gap [Moles/Vol] 6 mmol/L Low 9-18 [facility] Comment on above: Order Comment: Speci men Type: BLOOD SPECIMENOrdering Facility: [facility] Address: [address] [place] [address] Performed By: #### 2 4323-8 ####MAALIREZA SAUCEDA GREEN LABCLIA [id number] [address] [place] AST [Catalytic activity/Vol] 22 U/L Normal 13-39 [facility] Comment on above: Order Comment: Speci men Type: BLOOD SPECIMENOrdering Facility: [facility] Address: [address] [place] [address] Performed By: #### 2 4323-8 ####[facility] LABCLIA [id number] [place] [address] [place] Bilirubin [Mass/Vol] 1.0 mg/dL Normal 0.3-1.0 [facility] Comment on above: Order Comment: Speci men Type: BLOOD SPECIMENOrdering Facility: [facility] Address: [address] [place] [address] Result Comment: Use of this assay is not recommended for patients undergoing treatment with eltrombopag due to the potential for falsely elevated results. Performed By: #### 2 4323-8 ####BELLOALIREZA SAUCEDA GREEN LABCLIA [id number] [place] [address] [place] Calcium [Mass/Vol] 8.7 mg/dL Normal 8.6-10.3 [facility] Comment on above: Order Comment: Speci men Type: BLOOD SPECIMENOrdering Facility: [facility] Address: [address] [place] [address] Performed By: #### 2 4323-8 ####[employer] LABCLIA [id number] [place] [address] [place] Chloride [Moles/Vol] 104 mmol/L Normal 101-111 [facility] Comment on above: Order Comment: Speci men Type: BLOOD SPECIMENOrdering Facility: [facility] Address: [address] [place] [address] Performed By: #### 2 4323-8 ####[facility] YANG LABCLIA [id number] [place] [address] [place] CO2 [Moles/Vol] 31 mmol/L Normal 21-31 [facility] Comment on above: Order Comment: Speci men Type: BLOOD SPECIMENOrdering Facility: [facility] Address: [address] [place] [address] Performed By: #### 2 4323-8 ####PEG SAUCEDA GREEN LABCLIA [id number] [place] [address] [place] Creatinine [Mass/Vol] 1.15 mg/dL Normal 0.60-1.30 [facility] Comment on above: Order Comment: Speci men Type: BLOOD SPECIMENOrdering Facility: [facility] Address: [address] [place] [address] Result Comment: Use of this assay is not recommended for patients undergoing treatment with phenindione, due to the potential for falsely depressed results. Performed By: #### 2 4323-8 ####PEG WOODARDIA [id number] [place] [address] [place] ESTIMATED GLOMERULAR FILTRATION RATE 62 mL/min/1.73m??? Normal >=60 [facility] Comment on above: Order Comment: Elfego gilbert Type: BLOOD SPECIMENOrdering Facility: [facility] Address: [address] [place] [address] Result Comment: Concepción mated Glomerular Filtration Rate (eGFR) is calculated using the 2020 CKD-EPI creatinine equation. This equation utilizes serum creatinine, sex, and age as parameters. The creatinine assay has traceable calibration to isotope dilution-mass spectrometry. Refer to KDIGO guidelines for clinical interpretation. In patients with unstable renal function, e.g. those with acute kidney injury, the eGFR may not accurately reflect actual GFR. Performed By: #### 2 4323-8 ####PEG LLANESIA [id number] [place] [address] [place] Glucose [Mass/Vol] 109 mg/dL High 74-99 [facility] Comment on above: Order Comment: Elfego gilbert Type: BLOOD SPECIMENOrdering Facility: [facility] Address: [address] [place] [address] Result Comment: The [place] Diabetes Association (ADA) provides guidance for cutoff values for fasting glucose and random glucose. The ADA defines fasting as no caloric intake for at least 8 hours. Fasting plasma glucose results between 100 to 125 mg/dL indicate increased risk for diabetes (prediabetes).Fasting plasma glucose results greater than or equal to 126 mg/dL meet the criteria for diagnosis of diabetes. In the absence of unequivocal hyperglycemia, results should be confirmed by repeat testing. In a patient with classic symptoms of hyperglycemia or hyperglycemic crisis, random plasma glucose results greater than or equal to 200 mg/dL meet the criteria for diagnosis of diabetes.Reference: Standards of Medical Care in Diabetes 2016, [place] [employer] Association. Diabetes Care. 2016.39(Suppl 1). Performed By: #### 2 4323-8 ####PEG SAUCEDA [employer] LABCLIA [id number] [place] [address] [place] Potassium [Moles/Vol] 4.4 mmol/L Normal 3.6-5.1 [facility] Comment on above: Order Comment: Speci men Type: BLOOD SPECIMENOrdering Facility: [facility] Address: [address] [place] [address] Performed By: #### 2 4323-8 ####PEG YANG LABCLIA [id number] [place] [address] [place] Protein [Mass/Vol] 6.0 g/dL Low 6.4-8.9 [facility] Comment on above: Order Comment: Speci men Type: BLOOD SPECIMENOrdering Facility: [facility] Address: [address] [place] [address] Performed By: #### 2 4323-8 ####[facility] LABCLIA [id number] [place] [address] [place] Sodium [Moles/Vol] 141 mmol/L Normal 136-144 [facility] Comment on above: Order Comment: Speci men Type: BLOOD SPECIMENOrdering Facility: [facility] Address: [address] [place] [address] Performed By: #### 2 4323-8 ####MAALIREZA YANG LABCLIA [id number] [place] [address] [place] Urea nitrogen [Mass/Vol] 23 mg/dL Normal 7-25 [facility] Comment on above: Order Comment: Speci men Type: BLOOD SPECIMENOrdering Facility: [facility] Address: [address] [place] [address] Performed By: #### 2 4323-8 ####[facility] LABCLIA [id number] [place] [address] [place] CNOVSPon 01-14-2023 CNOVSP Normal [facility] CBC W Auto Differential pane l (Bld)on 01-12-2023 Anisocytosis Ql (Bld) Present Normal [facility] Comment on above: Order Comment: Speci men Type: BLOOD SPECIMENOrdering Facility: [facility] Address: [address] [place] [address] Performed By: #### 5 7021-8 ####PEG SAUCEDA GREEN LABCLIA [id number] [place] [address] [place] Basophils (Bld) [#/Vol] 0.08 10*3/uL Normal <0.11 [facility] Comment on above: Order Comment: Speci men Type: BLOOD SPECIMENOrdering Facility: [facility] Address: [address] [place] [address] Performed By: #### 5 7021-8 ####BELLOALIREZA SAUCEDA GREEN LABCLIA [id number] [address] [place] Basophils/100 WBC (Bld) 4.6 % Normal [facility] Comment on above: Order Comment: Speci men Type: BLOOD SPECIMENOrdering Facility: [facility] Address: [address] [place] [address] Performed By: #### 5 7021-8 ####BELLOALIREZA SAUCEDA GREEN LABCLIA [id number] [place] [address] [facility] [place] Differential cell count method Nom (Bld) Auto Normal [facility] Comment on above: Order Comment: Speci men Type: BLOOD SPECIMENOrdering Facility: [facility] Address: [address] [place] [address] Performed By: #### 5 7021-8 ####PEG SAUCEDA GREEN LABCLIA [id number] [place] [address] [place] Eosinophils (Bld) [#/Vol] 10*3/uL Normal <0.46 [facility] Comment on above: Order Comment: Speci men Type: BLOOD SPECIMENOrdering Facility: [facility] Address: [address] [place] [address] Performed By: #### 5 7021-8 ####PEG SAUCEDA GREEN LABCLIA [id number] [place] [address] [place] Eosinophils/100 WBC (Bld) 1.1 % Normal [facility] Comment on above: Order Comment: Speci men Type: BLOOD SPECIMENOrdering Facility: [facility] Address: [address] [place] [address] Performed By: #### 5 7021-8 ####PEG YANG LABCLIA [id number] [place] [address] [place] Erythrocyte distribution width (RBC) [Ratio] 19.5 % High 11.5-15.0 [facility] Comment on above: Order Comment: Speci men Type: BLOOD SPECIMENOrdering Facility: [facility] Address: [address] [place] [address] Performed By: #### 5 7021-8 ####PEG YANG LABCLIA [id number] [place] [address] [place] Giant platelets LM Ql (Bld) Occasional Normal [facility] Comment on above: Order Comment: Speci men Type: BLOOD SPECIMENOrdering Facility: [facility] Address: [address] [place] [address] Performed By: #### 5 7021-8 ####PEG YANG LABCLIA [id number] [place] [address] [place] Hematocrit (Bld) [Volume fraction] 24.2 % Low 39.0-51.0 [facility] Comment on above: Order Comment: Speci men Type: BLOOD SPECIMENOrdering Facility: [facility] Address: [address] [place] [address] Performed By: #### 5 7021-8 ####PEG SAUCEDA GREEN LABCLIA [id number] [place] [address] [place] Hemoglobin (Bld) [Mass/Vol] 7.8 g/dL Low 13.0-17.0 [facility] Comment on above: Order Comment: Speci men Type: BLOOD SPECIMENOrdering Facility: [facility] Address: [address] [place] [address] Performed By: #### 5 7021-8 ####[facility] LABCLIA [id number] [place] [address] [place] Immature granulocytes (Bld) [#/Vol] 10*3/uL Normal <0.10 [facility] Comment on above: Order Comment: Speci men Type: BLOOD SPECIMENOrdering Facility: [facility] Address: [address] [place] [address] Performed By: #### 5 7021-8 ####[facility] LABCLIA [id number] [address] [place] Immature granulocytes/100 WBC (Bld) 0.0 % Normal [facility] Comment on above: Order Comment: Speci men Type: BLOOD SPECIMENOrdering Facility: [facility] Address: [address] [place] [address] Performed By: #### 5 7021-8 ####BELLOALIREZA SAUCEDA GREEN LABCLIA [id number] [place] [address] [place] Lymphocytes (Bld) [#/Vol] 0.65 10*3/uL Low 1.00-4.00 [facility] Comment on above: Order Comment: Speci men Type: BLOOD SPECIMENOrdering Facility: [facility] Address: [address] [place] [address] Performed By: #### 5 7021-8 ####[facility] LABCLIA [id number] [place] [address] [place] Lymphocytes/100 WBC (Bld) 37.4 % Normal [facility] Comment on above: Order Comment: Speci men Type: BLOOD SPECIMENOrdering Facility: [facility] Address: [address] [place] [address] Performed By: #### 5 7021-8 ####[facility] LABCLIA [id number] [place] [address] [place] MCH (RBC) [Entitic mass] 39.0 pg High 26.0-34.0 [facility] Comment on above: Order Comment: Speci men Type: BLOOD SPECIMENOrdering Facility: [facility] Address: [address] [place] [address] Performed By: #### 5 7021-8 ####[facility] LABCLIA [id number] [place] [address] [place] MCHC (RBC) [Mass/Vol] 32.2 g/dL Normal 30.5-36.0 [facility] Comment on above: Order Comment: Speci men Type: BLOOD SPECIMENOrdering Facility: [facility] Address: [address] [place] [address] Performed By: #### 5 7021-8 ####[facility] LABCLIA [id number] [address] [place] MCV (RBC) [Entitic vol] 121.0 fL High 80.0-100.0 [facility] Comment on above: Order Comment: Speci men Type: BLOOD SPECIMENOrdering Facility: [facility] Address: [address] [place] [address] Performed By: #### 5 7021-8 ####[facility] LABCLIA [id number] [place] [address] [place] Monocytes (Bld) [#/Vol] 0.14 10*3/uL Normal <0.87 [facility] Comment on above: Order Comment: Speci men Type: BLOOD SPECIMENOrdering Facility: [facility] Address: [address] [place] [address] Performed By: #### 5 7021-8 ####[facility] LABCLIA [id number] [place] [address] [facility] Monocytes/100 WBC (Bld) 8.0 % Normal [facility] Comment on above: Order Comment: Speci men Type: BLOOD SPECIMENOrdering Facility: [facility] Address: [address] [place] [address] Performed By: #### 5 7021-8 ####PEG SAUCEDA GREEN LABCLIA [id number] [place] [address] [place] Neutrophils (Bld) [#/Vol] 0.85 10*3/uL Low 1.45-7.50 [facility] Comment on above: Order Comment: Speci men Type: BLOOD SPECIMENOrdering Facility: [facility] Address: [address] [place] [address] Performed By: #### 5 7021-8 ####PEG SAUCEDA GREEN LABCLIA [id number] [place] [address] [place] Neutrophils/100 WBC (Bld) 48.9 % Normal [facility] Comment on above: Order Comment: Speci men Type: BLOOD SPECIMENOrdering Facility: [facility] Address: [address] [place] [address] Performed By: #### 5 7021-8 ####PEG [facility]UCED[facility] GREEN LABCLIA [id number] [place] [address] [place] Nucleated RBC (Bld) [#/Vol] Normal [facility] Comment on above: Order Comment: Speci men Type: BLOOD SPECIMENOrdering Facility: [facility] Address: [address] [place] [address] Performed By: #### 5 7021-8 ####[facility] GREEN LABCLIA [id number] [place] [address] [place] Nucleated RBC/100 WBC (Bld) [Ratio] Normal [facility] Comment on above: Order Comment: Speci men Type: BLOOD SPECIMENOrdering Facility: [facility] Address: [address] [place] [address] Performed By: #### 5 7021-8 ####[facility] LABCLIA [id number] [place] [address] [place] Platelet mean volume (Bld) [Entitic vol] 10.3 fL Normal 9.0-12.7 [facility] Comment on above: Order Comment: Speci men Type: BLOOD SPECIMENOrdering Facility: [facility] Address: [address] [place] [address] Performed By: #### 5 7021-8 ####PEG YANG LABCLIA [id number] [place] [address] [place] Platelets (Bld) [#/Vol] 633 10*3/uL High 150-400 [facility] Comment on above: Order Comment: Speci men Type: BLOOD SPECIMENOrdering Facility: [facility] Address: [address] [place] [address] Performed By: #### 5 7021-8 ####PEG YANG LABCLIA [id number] [address] [place] Platelets Estimate (Bld) [#/Vol] Increased Normal [facility] Comment on above: Order Comment: Speci men Type: BLOOD SPECIMENOrdering Facility: [facility] Address: [address] [place] [address] Performed By: #### 5 7021-8 ####MAALIREZA YANG LABCLIA [id number] [place] [address] [facility] [place] Polychromasia LM Ql (Bld) Slight Normal [facility] Comment on above: Order Comment: Speci men Type: BLOOD SPECIMENOrdering Facility: [facility] Address: [address] [place] [address] Performed By: #### 5 7021-8 ####MAALIREZA SAUCEDA GREEN LABCLIA [id number] [place] [address] [place] RBC (Bld) [#/Vol] 2.00 10*6/uL Low 4.20-6.00 [facility] Comment on above: Order Comment: Speci men Type: BLOOD SPECIMENOrdering Facility: [facility] Address: [address] [place] [address] Performed By: #### 5 7021-8 ####PEG [facility] LABCLIA [id number] [place] [address] [place] RBC FRAGMENTS Few Abnormal None Seen [facility] Comment on above: Order Comment: Speci men Type: BLOOD SPECIMENOrdering Facility: [facility] Address: [address] [place] [address] Performed By: #### 5 7021-8 ####PEG [facility]UC[facility] GREEN LABCLIA [id number] [address] [place] Reviewed: see result s of individual morphologies Normal [facility] Comment on above: Order Comment: Speci men Type: BLOOD SPECIMENOrdering Facility: [facility] Address: [address] [place] [address] Performed By: #### 5 7021-8 ####PEG [facility]UCED[facility] GREEN LABCLIA [id number] [place] [address] [place] WBC (Bld) [#/Vol] 1.74 10*3/uL Low 3.70-11.00 [facility] Comment on above: Order Comment: Speci men Type: BLOOD SPECIMENOrdering Facility: [facility] Address: [address] [place] [address] Performed By: #### 5 7021-8 ####PEG SAUCEDA GREEN LABCLIA [id number] [place] [address] [place] Anisocytosis Ql (Bld) Present [facility] Basophils (Bld) [#/Vol] 0.08 10*3/uL <0.11 k/uL [facility] Basophils/100 WBC (Bld) 4.6 % [facility] Differential cell count method Nom (Bld) Auto [facility] Eosinophils (Bld) [#/Vol] <0.46 k/uL [facility] Eosinophils/100 WBC (Bld) 1.1 % [facility] Erythrocyte distribution width (RBC) [Ratio] 19.5 % High 11.5 - 15.0 % [facility] Giant platelets LM Ql (Bld) Occasional [facility] Hematocrit (Bld) [Volume fraction] 24.2 % Low 39.0 - 51.0 % [facility] Hemoglobin (Bld) [Mass/Vol] 7.8 g/dL Low 13.0 - 17.0 g/dL [facility] Immature granulocytes (Bld) [#/Vol] <0.10 k/uL [facility] Immature granulocytes/100 WBC (Bld) 0.0 % [facility] Lymphocytes (Bld) [#/Vol] 0.65 10*3/uL Low 1.00 - 4.00 k/uL [facility] Lymphocytes/100 WBC (Bld) 37.4 % [facility] MCH (RBC) [Entitic mass] 39.0 pg High 26.0 - 34.0 pg [facility] MCHC (RBC) [Mass/Vol] 32.2 g/dL 30.5 - 36.0 g/dL [facility] MCV (RBC) [Entitic vol] 121.0 fL High 80.0 - 100.0 fL [facility] Monocytes (Bld) [#/Vol] 0.14 10*3/uL <0.87 k/uL [facility] Monocytes/100 WBC (Bld) 8.0 % [facility] Neutrophils (Bld) [#/Vol] 0.85 10*3/uL Low 1.45 - 7.50 k/uL [facility] Neutrophils/100 WBC (Bld) 48.9 % [facility] Nucleated RBC (Bld) [#/Vol] [facility] Nucleated RBC/100 WBC (Bld) [Ratio] [facility] Platelet mean volume (Bld) [Entitic vol] 10.3 fL 9.0 - 12.7 fL [facility] Platelets (Bld) [#/Vol] 633 10*3/uL High 150 - 400 k/uL [facility] Platelets Estimate (Bld) [#/Vol] Increased [facility] Polychromasia LM Ql (Bld) Slight [facility] RBC (Bld) [#/Vol] 2.00 10*6/uL Low 4.20 - 6.00 m/uL [facility] RBC Fragments Few Abnormal None Seen [facility] Red Cell Morph Reviewed: see result s of individual morphologies [facility] WBC (Bld) [#/Vol] 1.74 10*3/uL Low 3.70 - 11.00 k/uL [facility] Comprehensive metabolic 2000 panelon 01-12-2023 Albumin [Mass/Vol] 3.6 g/dL Normal 3.5-5.7 [facility] Comment on above: Order Comment: Speci men Type: BLOOD SPECIMENOrdering Facility: [facility] Address: [address] [place] [address] Performed By: #### 2 4323-8 ####[facility] [employer] LABCLIA [id number] [address] [place] [facility] ALP [Catalytic activity/Vol] 60 U/L Normal 34-104 [facility] Comment on above: Order Comment: Speci men Type: BLOOD SPECIMENOrdering Facility: [facility] Address: [address] [place] [address] Performed By: #### 2 4323-8 ####[facility] LABCLIA [id number] [address] [place] [facility] ALT [Catalytic activity/Vol] 19 U/L Normal 7-52 [facility] Comment on above: Order Comment: Speci men Type: BLOOD SPECIMENOrdering Facility: [facility] Address: [address] [place] [address] Performed By: #### 2 4323-8 ####[facility] [employer] LABCLIA [id number] [place] [address] [place] [facility] Anion gap [Moles/Vol] 2 mmol/L Low 9-18 [facility] Comment on above: Order Comment: Speci men Type: BLOOD SPECIMENOrdering Facility: [facility] Address: [address] [place] [address] Performed By: #### 2 4323-8 ####[facility] [employer] LABCLIA [id number] [place] [address] [place] AST [Catalytic activity/Vol] 20 U/L Normal 13-39 [facility] Comment on above: Order Comment: Speci men Type: BLOOD SPECIMENOrdering Facility: [facility] Address: [address] [place] [address] Performed By: #### 2 4323-8 ####[facility] LABCLIA [id number] [place] [address] [place] Bilirubin [Mass/Vol] 0.9 mg/dL Normal 0.3-1.0 [facility] Comment on above: Order Comment: Speci men Type: BLOOD SPECIMENOrdering Facility: [facility] Address: [address] [place] [address] Result Comment: Use of this assay is not recommended for patients undergoing treatment with eltrombopag due to the potential for falsely elevated results. Performed By: #### 2 4323-8 ####[facility] LABCLIA [id number] [place] [address] [place] Calcium [Mass/Vol] 8.5 mg/dL Low 8.6-10.3 [facility] Comment on above: Order Comment: Speci men Type: BLOOD SPECIMENOrdering Facility: [facility] Address: [address] [place] [address] Performed By: #### 2 4323-8 ####[facility] LABCLIA [id number] [place] [address] [place] Chloride [Moles/Vol] 103 mmol/L Normal 101-111 [facility] Comment on above: Order Comment: Speci men Type: BLOOD SPECIMENOrdering Facility: [facility] Address: [address] [place] [address] Performed By: #### 2 4323-8 ####[facility] LABCLIA [id number] [place] [address] [place] CO2 [Moles/Vol] 34 mmol/L High 21-31 [facility] Comment on above: Order Comment: Speci men Type: BLOOD SPECIMENOrdering Facility: [facility] Address: [address] [place] [address] Performed By: #### 2 4323-8 ####PEG LLANESIA [id number] [place] [address] [place] Creatinine [Mass/Vol] 1.12 mg/dL Normal 0.60-1.30 [facility] Comment on above: Order Comment: Speci men Type: BLOOD SPECIMENOrdering Facility: [facility] Address: [address] [place] [address] Result Comment: Use of this assay is not recommended for patients undergoing treatment with phenindione, due to the potential for falsely depressed results. Performed By: #### 2 4323-8 ####PEG LLANESIA [id number] [place] [address] [place] [facility] ESTIMATED GLOMERULAR FILTRATION RATE 64 mL/min/1.73m??? Normal >=60 [facility] Comment on above: Order Comment: Speci men Type: BLOOD SPECIMENOrdering Facility: [facility] Address: [address] [place] [address] Result Comment: Concepción mated Glomerular Filtration Rate (eGFR) is calculated using the 2020 CKD-EPI creatinine equation. This equation utilizes serum creatinine, sex, and age as parameters. The creatinine assay has traceable calibration to isotope dilution-mass spectrometry. Refer to KDIGO guidelines for clinical interpretation. In patients with unstable renal function, e.g. those with acute kidney injury, the eGFR may not accurately reflect actual GFR. Performed By: #### 2 4323-8 ####[employer] LLANESIA [id number] [place] [address] [place] Glucose [Mass/Vol] 131 mg/dL High 74-99 [facility] Comment on above: Order Comment: Speci men Type: BLOOD SPECIMENOrdering Facility: [facility] Address: [address] [place] [address] Result Comment: The [place] Diabetes Association (ADA) provides guidance for cutoff values for fasting glucose and random glucose. The ADA defines fasting as no caloric intake for at least 8 hours. Fasting plasma glucose results between 100 to 125 mg/dL indicate increased risk for diabetes (prediabetes).Fasting plasma glucose results greater than or equal to 126 mg/dL meet the criteria for diagnosis of diabetes. In the absence of unequivocal hyperglycemia, results should be confirmed by repeat testing. In a patient with classic symptoms of hyperglycemia or hyperglycemic crisis, random plasma glucose results greater than or equal to 200 mg/dL meet the criteria for diagnosis of diabetes.Reference: Standards of Medical Care in Diabetes 2016, [place] [employer] Association. Diabetes Care. 2016.39(Suppl 1). Performed By: #### 2 4323-8 ####[employer] LABCLIA [id number] [place] [address] [place] Potassium [Moles/Vol] 3.9 mmol/L Normal 3.6-5.1 [facility] Comment on above: Order Comment: Speci men Type: BLOOD SPECIMENOrdering Facility: [facility] Address: [address] [place] [address] Performed By: #### 2 432-8 ####[facility] [employer] LABCLIA [id number] [place] [address] [place] Protein [Mass/Vol] 5.6 g/dL Low 6.4-8.9 [facility] Comment on above: Order Comment: Speci men Type: BLOOD SPECIMENOrdering Facility: [facility] Address: [address] [place] [address] Performed By: #### 2 432-8 ####[facility] [employer] LABCLIA [id number] [place] [address] [place] Sodium [Moles/Vol] 139 mmol/L Normal 136-144 [facility] Comment on above: Order Comment: Speci men Type: BLOOD SPECIMENOrdering Facility: [facility] Address: [address] [place] [address] Performed By: #### 2 4323-8 ####[facility] [employer] LABCLIA [id number] [place] [address] [place] Urea nitrogen [Mass/Vol] 30 mg/dL High 7-25 [facility] Comment on above: Order Comment: Speci men Type: BLOOD SPECIMENOrdering Facility: [facility] Address: [place] [address] Performed By: #### 2 4323-8 ####[facility] LABCLIA [id number] [place] [address] [place] Albumin [Mass/Vol] 3.6 g/dL 3.5 - 5.7 g/dL [facility] ALP [Catalytic activity/Vol] 60 U/L 34 - 104 U/L [facility] ALT [Catalytic activity/Vol] 19 U/L 7 - 52 U/L [facility] Anion gap [Moles/Vol] 2 mmol/L Low 9 - 18 mmol/L [facility] AST [Catalytic activity/Vol] 20 U/L 13 - 39 U/L [facility] Bilirubin [Mass/Vol] 0.9 mg/dL 0.3 - 1 .0 mg/dL [facility] Calcium [Mass/Vol] 8.5 mg/dL Low 8.6 - 10. 3 mg/dL [facility] Chloride [Moles/Vol] 103 mmol/L 101 - 1 11 mmol/L [facility] CO2 [Moles/Vol] 34 mmol/L High 21 - 31 mmol/L [facility] Creatinine [Mass/Vol] 1.12 mg/dL 0.60 - 1.30 mg/dL [facility] Estimated Glomerular Filtration Rate 64 mL/min/1.73m >=60 mL/min/1.7 3m [facility] Glucose [Mass/Vol] 131 mg/dL High 74 - 99 mg/dL [facility] Potassium [Moles/Vol] 3.9 mmol/L 3.6 - 5.1 mmol/L [facility] Protein [Mass/Vol] 5.6 g/dL Low 6.4 - 8.9 g/dL [facility] Sodium [Moles/Vol] 139 mmol/L 136 - 144 mmol/L [facility] Urea nitrogen [Mass/Vol] 30 mg/dL High 7 - 25 mg/dL [facility] CNOVSPon 2022 CNOVSP Normal [facility] CBC W Auto Differential pane l (Bld)on 12-15-2022 Basophils (Bld) [#/Vol] 0.06 10*3/uL Normal <0.11 [facility] Comment on above: Order Comment: Speci men Type: BLOOD SPECIMENOrdering Facility: [facility] Address: [address] [place] [address] Performed By: #### 5 7021-8 ####[facility] LABCLIA [id number] [place] [address] [place] Basophils/100 WBC (Bld) 1.0 % Normal [facility] Comment on above: Order Comment: Speci men Type: BLOOD SPECIMENOrdering Facility: [facility] Address: [address] [place] [address] Performed By: #### 5 7021-8 ####[facility] LABCLIA [id number] [place] [address] [place] Differential cell count method Nom (Bld) Auto Normal [facility] Comment on above: Order Comment: Speci men Type: BLOOD SPECIMENOrdering Facility: [facility] Address: [address] [place] [address] Performed By: #### 5 7021-8 ####[facility] LABCLIA [id number] [place] [address] [place] Eosinophils (Bld) [#/Vol] 0.14 10*3/uL Normal <0.46 [facility] Comment on above: Order Comment: Speci men Type: BLOOD SPECIMENOrdering Facility: [facility] Address: [address] [place] [address] Performed By: #### 5 7021-8 ####[facility] LABCLIA [id number] [address] [place] Eosinophils/100 WBC (Bld) 2.4 % Normal [facility] Comment on above: Order Comment: Speci men Type: BLOOD SPECIMENOrdering Facility: [facility] Address: [address] [place] [address] Performed By: #### 5 7021-8 ####[employer] LABCLIA [id number] [place] [address] [place] Erythrocyte distribution width (RBC) [Ratio] 18.4 % High 11.5-15.0 [facility] Comment on above: Order Comment: Speci men Type: BLOOD SPECIMENOrdering Facility: [facility] Address: [address] [place] [address] Performed By: #### 5 7021-8 ####[facility] [employer] LABCLIA [id number] [place] [address] [place] Hematocrit (Bld) [Volume fraction] 24.1 % Low 39.0-51.0 [facility] Comment on above: Order Comment: Speci men Type: BLOOD SPECIMENOrdering Facility: [facility] Address: [address] [place] [address] Performed By: #### 5 7021-8 ####[facility] LABCLIA [id number] [address] [place] Hemoglobin (Bld) [Mass/Vol] 7.8 g/dL Low 13.0-17.0 [facility] Comment on above: Order Comment: Speci men Type: BLOOD SPECIMENOrdering Facility: [facility] Address: [address] [place] [address] Performed By: #### 5 7021-8 ####[facility] [employer] LABCLIA [id number] [place] [address] [place] Immature granulocytes (Bld) [#/Vol] 10*3/uL Normal <0.10 [facility] Comment on above: Order Comment: Speci men Type: BLOOD SPECIMENOrdering Facility: [facility] Address: [address] [place] [address] Performed By: #### 5 7021-8 ####[facility] [employer] LABCLIA [id number] [address] [place] Immature granulocytes/100 WBC (Bld) 0.2 % Normal [facility] Comment on above: Order Comment: Speci men Type: BLOOD SPECIMENOrdering Facility: [facility] Address: [address] [place] [address] Performed By: #### 5 7021-8 ####[facility] LABCLIA [id number] [place] [address] [place] Lymphocytes (Bld) [#/Vol] 0.99 10*3/uL Low 1.00-4.00 [facility] Comment on above: Order Comment: Speci men Type: BLOOD SPECIMENOrdering Facility: [facility] Address: [address] [place] [address] Performed By: #### 5 7021-8 ####[facility] LABCLIA [id number] [address] Lymphocytes/100 WBC (Bld) 17.0 % Normal [facility] Comment on above: Order Comment: Speci men Type: BLOOD SPECIMENOrdering Facility: [facility] Address: [address] [place] [address] Performed By: #### 5 7021-8 ####[facility] LABCLIA [id number] [address] [place] MCH (RBC) [Entitic mass] 38.6 pg High 26.0-34.0 [facility] Comment on above: Order Comment: Speci men Type: BLOOD SPECIMENOrdering Facility: [facility] Address: [address] [place] [address] Performed By: #### 5 7021-8 ####[facility] [employer] LABCLIA [id number] [address] [place] MCHC (RBC) [Mass/Vol] 32.4 g/dL Normal 30.5-36.0 [facility] Comment on above: Order Comment: Speci men Type: BLOOD SPECIMENOrdering Facility: [facility] Address: [address] [place] [address] Performed By: #### 5 7021-8 ####[facility] LABCLIA [id number] [place] [address] [place] MCV (RBC) [Entitic vol] 119.3 fL High 80.0-100.0 [facility] Comment on above: Order Comment: Speci men Type: BLOOD SPECIMENOrdering Facility: [facility] Address: [address] [place] [address] Performed By: #### 5 7021-8 ####[facility] LABCLIA [id number] [place] [address] [place] Monocytes (Bld) [#/Vol] 0.63 10*3/uL Normal <0.87 [facility] Comment on above: Order Comment: Speci men Type: BLOOD SPECIMENOrdering Facility: [facility] Address: [address] [place] [address] Performed By: #### 5 7021-8 ####[facility] LABCLIA [id number] [place] [address] [place] Monocytes/100 WBC (Bld) 10.8 % Normal [facility] Comment on above: Order Comment: Speci men Type: BLOOD SPECIMENOrdering Facility: [facility] Address: [address] [place] [address] Performed By: #### 5 7021-8 ####[facility] [employer] LABCLIA [id number] [place] [address] [place] Neutrophils (Bld) [#/Vol] 3.99 10*3/uL Normal 1.45-7.50 [facility] Comment on above: Order Comment: Speci men Type: BLOOD SPECIMENOrdering Facility: [facility] Address: [address] [place] [address] Performed By: #### 5 7021-8 ####[facility] LABCLIA [id number] [place] [address] [place] Neutrophils/100 WBC (Bld) 68.6 % Normal [facility] Comment on above: Order Comment: Speci men Type: BLOOD SPECIMENOrdering Facility: [facility] Address: [address] [place] [address] Performed By: #### 5 7021-8 ####[facility] LABCLIA [id number] [place] [address] [place] Nucleated RBC (Bld) [#/Vol] Normal [facility] Comment on above: Order Comment: Speci men Type: BLOOD SPECIMENOrdering Facility: [facility] Address: [address] [place] [address] Performed By: #### 5 7021-8 ####BELLOALIREZA SAUC[facility] GREEN LABCLIA [id number] [place] [address] [place] Nucleated RBC/100 WBC (Bld) [Ratio] Normal [facility] Comment on above: Order Comment: Speci men Type: BLOOD SPECIMENOrdering Facility: [facility] Address: [address] [place] [address] Performed By: #### 5 7021-8 ####PEG YANG LABCLIA [id number] [place] [address] [place] Platelet mean volume (Bld) [Entitic vol] 10.9 fL Normal 9.0-12.7 [facility] Comment on above: Order Comment: Speci men Type: BLOOD SPECIMENOrdering Facility: [facility] Address: [address] [place] [address] Performed By: #### 5 7021-8 ####MAALIREZA SAUCEDA GREEN LABCLIA [id number] [place] [address] [place] Platelets (Bld) [#/Vol] 261 10*3/uL Normal 150-400 [facility] Comment on above: Order Comment: Speci men Type: BLOOD SPECIMENOrdering Facility: [facility] Address: [address] [place], [place] [address] Performed By: #### 5 7021-8 ####MAALIREZA YANG LABCLIA [id number] [place] [address] [place] RBC (Bld) [#/Vol] 2.02 10*6/uL Low 4.20-6.00 [facility] Comment on above: Order Comment: Speci men Type: BLOOD SPECIMENOrdering Facility: [facility] Address: [address] [place] [place] [address] Performed By: #### 5 7021-8 ####[facility] LABCLIA [id number] [place] [address] [facility] [place] WBC (Bld) [#/Vol] 5.82 10*3/uL Normal 3.70-11.00 [facility] Comment on above: Order Comment: Speci men Type: BLOOD SPECIMENOrdering Facility: [facility] Address: [address] [place] [place] [address] Performed By: #### 5 7021-8 ####[facility] LABCLIA [id number] [place] [address] [facility] [place] Basophils (Bld) [#/Vol] 0.06 10*3/uL <0.11 k/uL [facility] Basophils/100 WBC (Bld) 1.0 % [facility] Differential cell count method Nom (Bld) Auto [facility] Eosinophils (Bld) [#/Vol] 0.14 10*3/uL <0.46 k/uL [facility] Eosinophils/100 WBC (Bld) 2.4 % [facility] Erythrocyte distribution width (RBC) [Ratio] 18.4 % High 11.5 - 15.0 % [facility] Hematocrit (Bld) [Volume fraction] 24.1 % Low 39.0 - 51.0 % [facility] Hemoglobin (Bld) [Mass/Vol] 7.8 g/dL Low 13.0 - 17.0 g/dL [facility] Immature granulocytes (Bld) [#/Vol] <0.10 k/uL [facility] Immature granulocytes/100 WBC (Bld) 0.2 % [facility] Lymphocytes (Bld) [#/Vol] 0.99 10*3/uL Low 1.00 - 4.00 k/uL [facility] Lymphocytes/100 WBC (Bld) 17.0 % [facility] MCH (RBC) [Entitic mass] 38.6 pg High 26.0 - 34.0 pg [facility] MCHC (RBC) [Mass/Vol] 32.4 g/dL 30.5 - 36.0 g/dL [facility] MCV (RBC) [Entitic vol] 119.3 fL High 80.0 - 100.0 fL [facility] Monocytes (Bld) [#/Vol] 0.63 10*3/uL <0.87 k/uL [facility] Monocytes/100 WBC (Bld) 10.8 % [facility] Neutrophils (Bld) [#/Vol] 3.99 10*3/uL 1.45 - 7.50 k/uL [facility] Neutrophils/100 WBC (Bld) 68.6 % [facility] Nucleated RBC (Bld) [#/Vol] [facility] Nucleated RBC/100 WBC (Bld) [Ratio] [facility] Platelet mean volume (Bld) [Entitic vol] 10.9 fL 9.0 - 12.7 fL [facility] Platelets (Bld) [#/Vol] 261 10*3/uL 150 - 400 k/uL [facility] RBC (Bld) [#/Vol] 2.02 10*6/uL Low 4.20 - 6.00 m/uL [facility] WBC (Bld) [#/Vol] 5.82 10*3/uL 3.70 - 11.00 k/uL [facility] CNPNon 12-15-2022 CNPN Normal [facility] Comprehensive metabolic 2000 panelon 12-15-2022 Albumin [Mass/Vol] 3.6 g/dL Normal 3.5-5.7 [facility] Comment on above: Order Comment: Speci men Type: BLOOD SPECIMENOrdering Facility: [facility] Address: [address] [place] [address] Performed By: #### 2 4323-8 ####[facility] LABCLIA [id number] [place] [address] [facility] [place] ALP [Catalytic activity/Vol] 50 U/L Normal 34-104 [facility] Comment on above: Order Comment: Speci men Type: BLOOD SPECIMENOrdering Facility: [facility] Address: [address] [place] [address] Performed By: #### 2 4323-8 ####[facility] LABCLIA [id number] [place] [address] [place] ALT [Catalytic activity/Vol] 19 U/L Normal 7-52 [facility] Comment on above: Order Comment: Speci men Type: BLOOD SPECIMENOrdering Facility: [facility] Address: [address] [place] [address] Performed By: #### 2 4323-8 ####[facility] LABCLIA [id number] [address] [place] Anion gap [Moles/Vol] 3 mmol/L Low 9-18 [facility] Comment on above: Order Comment: Speci men Type: BLOOD SPECIMENOrdering Facility: [facility] Address: [address] [place] [address] Performed By: #### 2 4323-8 ####[facility] LABCLIA [id number] [address] [place] AST [Catalytic activity/Vol] 22 U/L Normal 13-39 [facility] Comment on above: Order Comment: Speci men Type: BLOOD SPECIMENOrdering Facility: [facility] Address: [address] [place] [address] Performed By: #### 2 4323-8 ####[facility] LABCLIA [id number] [address] [place] Bilirubin [Mass/Vol] 1.3 mg/dL High 0.3-1.0 [facility] Comment on above: Order Comment: Speci men Type: BLOOD SPECIMENOrdering Facility: [facility] Address: [address] [place] [address] Result Comment: Use of this assay is not recommended for patients undergoing treatment with eltrombopag due to the potential for falsely elevated results. Performed By: #### 2 4323-8 ####[facility] [employer] LABCLIA [id number] [place] [address] [place] Calcium [Mass/Vol] 8.6 mg/dL Normal 8.6-10.3 [facility] Comment on above: Order Comment: Speci men Type: BLOOD SPECIMENOrdering Facility: [facility] Address: [address] [place] [address] Performed By: #### 2 4323-8 ####PEG SAUCEDA [employer] LABCLIA [id number] [place] [address] [place] Chloride [Moles/Vol] 102 mmol/L Normal 101-111 [facility] Comment on above: Order Comment: Speci men Type: BLOOD SPECIMENOrdering Facility: [facility] Address: [address] [place] [address] Performed By: #### 2 4323-8 ####MAALIREZA [employer] LABCLIA [id number] [place] [address] [place] CO2 [Moles/Vol] 33 mmol/L High 21-31 [facility] Comment on above: Order Comment: Speci men Type: BLOOD SPECIMENOrdering Facility: [facility] Address: [address] [place] [address] Performed By: #### 2 4323-8 ####MAALIREZA [employer] LABCLIA [id number] [place] [address] [place] Creatinine [Mass/Vol] 1.04 mg/dL Normal 0.70-1.30 [facility] Comment on above: Order Comment: Speci men Type: BLOOD SPECIMENOrdering Facility: [facility] Address: [address] [place] [address] Result Comment: Use of this assay is not recommended for patients undergoing treatment with phenindione, due to the potential for falsely depressed results. Performed By: #### 2 4323-8 ####PEG SAUCEDA [place] [facility] LABCLIA [id number] [place] [address] [place] ESTIMATED GLOMERULAR FILTRATION RATE 70 mL/min/1.73m??? Normal >=60 [facility] Comment on above: Order Comment: Elfego gilbert Type: BLOOD SPECIMENOrdering Facility: [facility] Address: [address] [place] [address] Result Comment: Concepción mated Glomerular Filtration Rate (eGFR) is calculated using the 2020 CKD-EPI creatinine equation. This equation utilizes serum creatinine, sex, and age as parameters. The creatinine assay has traceable calibration to isotope dilution-mass spectrometry. Refer to KDIGO guidelines for clinical interpretation. In patients with unstable renal function, e.g. those with acute kidney injury, the eGFR may not accurately reflect actual GFR. Performed By: #### 2 4323-8 ####[facility] HOSPITALIA [id number] [place] [address] [place] Glucose [Mass/Vol] 159 mg/dL High 74-99 [facility] Comment on above: Order Comment: Speci vladimir Type: BLOOD SPECIMENOrdering Facility: [facility] Address: [address] [place] [address] Result Comment: The [place] Diabetes Association (ADA) provides guidance for cutoff values for fasting glucose and random glucose. The ADA defines fasting as no caloric intake for at least 8 hours. Fasting plasma glucose results between 100 to 125 mg/dL indicate increased risk for diabetes (prediabetes).Fasting plasma glucose results greater than or equal to 126 mg/dL meet the criteria for diagnosis of diabetes. In the absence of unequivocal hyperglycemia, results should be confirmed by repeat testing. In a patient with classic symptoms of hyperglycemia or hyperglycemic crisis, random plasma glucose results greater than or equal to 200 mg/dL meet the criteria for diagnosis of diabetes.Reference: Standards of Medical Care in Diabetes 2016, [place] [employer] Association. Diabetes Care. 2016.39(Suppl 1). Performed By: #### 2 4323-8 ####MAALIREZA [facility] LABIA [id number] [place] [address] [place] Potassium [Moles/Vol] 4.1 mmol/L Normal 3.6-5.1 [facility] Comment on above: Order Comment: Speci men Type: BLOOD SPECIMENOrdering Facility: [facility] Address: [address] [place] [address] Performed By: #### 2 4323-8 ####PEG SAUCEDA [employer] LABCLIA [id number] [place] [address] [place] Protein [Mass/Vol] 5.6 g/dL Low 6.4-8.9 [facility] Comment on above: Order Comment: Speci men Type: BLOOD SPECIMENOrdering Facility: [facility] Address: [address] [place] [address] Performed By: #### 2 4323-8 ####[facility] LABCLIA [id number] [place] [address] [place] Sodium [Moles/Vol] 138 mmol/L Normal 136-144 [facility] Comment on above: Order Comment: Speci men Type: BLOOD SPECIMENOrdering Facility: [facility] Address: [address] [place] [address] Performed By: #### 2 4323-8 ####MAALIREZA SAUCEDA [employer] LABCLIA [id number] [place] [address] [place] Urea nitrogen [Mass/Vol] 30 mg/dL High 7-25 [facility] Comment on above: Order Comment: Speci men Type: BLOOD SPECIMENOrdering Facility: [facility] Address: [address] [place] [address] Performed By: #### 2 4323-8 ####[facility] [employer] LABCLIA [id number] [place] [address] [place] Albumin [Mass/Vol] 3.6 g/dL 3.5 - 5.7 g/dL [facility] ALP [Catalytic activity/Vol] 50 U/L 34 - 104 U/L [facility] ALT [Catalytic activity/Vol] 19 U/L 7 - 52 U/L [facility] Anion gap [Moles/Vol] 3 mmol/L Low 9 - 18 mmol/L [facility] AST [Catalytic activity/Vol] 22 U/L 13 - 39 U/L [facility] Bilirubin [Mass/Vol] 1.3 mg/dL High 0.3 - 1 .0 mg/dL [facility] Calcium [Mass/Vol] 8.6 mg/dL 8.6 - 10. 3 mg/dL [facility] Chloride [Moles/Vol] 102 mmol/L 101 - 1 11 mmol/L [facility] CO2 [Moles/Vol] 33 mmol/L High 21 - 31 mmol/L [facility] Creatinine [Mass/Vol] 1.04 mg/dL 0.70 - 1.30 mg/dL [facility] Estimated Glomerular Filtration Rate 70 mL/min/1.73m >=60 mL/min/1.7 3m [facility] Glucose [Mass/Vol] 159 mg/dL High 74 - 99 mg/dL [facility] Potassium [Moles/Vol] 4.1 mmol/L 3.6 - 5.1 mmol/L [facility] Protein [Mass/Vol] 5.6 g/dL Low 6.4 - 8.9 g/dL [facility] Sodium [Moles/Vol] 138 mmol/L 136 - 144 mmol/L [facility] Urea nitrogen [Mass/Vol] 30 mg/dL High 7 - 25 mg/dL [facility] OPERATIVE NOon 12-05-2022 OPERATIVE NO Normal [facility] CBC W Auto Differential pane l (Bld)on 12-04-2022 Basophils (Bld) [#/Vol] 0.04 10*3/uL Normal <0.11 [facility] Comment on above: Order Comment: Speci men Type: BLOOD SPECIMENOrdering Facility: [facility] Address: [address] [place] [address] Performed By: #### 5 7021-8 ####[facility] LABORATORYCLIA [id number] [place] [address] [place] Basophils/100 WBC (Bld) 0.5 % Normal [facility] Comment on above: Order Comment: Speci men Type: BLOOD SPECIMENOrdering Facility: [facility] Address: [address] [place] [address] Performed By: #### 5 7021-8 ####[facility] LABORATORYCLIA [id number] [address] Differential cell count method Nom (Bld) Auto Normal [facility] Comment on above: Order Comment: Speci men Type: BLOOD SPECIMENOrdering Facility: [facility] Address: [address] [place] [address] Performed By: #### 5 7021-8 ####[facility] LABORATORYCLIA [id number] [address] [place] Eosinophils (Bld) [#/Vol] 0.16 10*3/uL Normal <0.46 [facility] Comment on above: Order Comment: Speci men Type: BLOOD SPECIMENOrdering Facility: [facility] Address: [address] [place] [address] Performed By: #### 5 7021-8 ####[facility] LABORATORYCLIA [id number] [address] Eosinophils/100 WBC (Bld) 2.1 % Normal [facility] Comment on above: Order Comment: Speci men Type: BLOOD SPECIMENOrdering Facility: [facility] Address: [address] [place] [address] Performed By: #### 5 7021-8 ####[facility] LABORATORYCLIA [id number] [address] [place] Erythrocyte distribution width (RBC) [Ratio] 19.3 % High 11.5-15.0 [facility] Comment on above: Order Comment: Speci men Type: BLOOD SPECIMENOrdering Facility: [facility] Address: [address] [place] [address] Performed By: #### 5 7021-8 ####[facility] LABORATORYCLIA [id number] [address] [place] Hematocrit (Bld) [Volume fraction] 26.1 % Low 39.0-51.0 [facility] Comment on above: Order Comment: Speci men Type: BLOOD SPECIMENOrdering Facility: [facility] Address: [address] [place] [address] Performed By: #### 5 7021-8 ####[facility] LABORATORYCLIA [id number] [address] [place] Hemoglobin (Bld) [Mass/Vol] 8.5 g/dL Low 13.0-17.0 [facility] Comment on above: Order Comment: Speci men Type: BLOOD SPECIMENOrdering Facility: [facility] Address: [address] [place] [address] Performed By: #### 5 7021-8 ####[facility] LABORATORYCLIA [id number] [address] [place] Immature granulocytes (Bld) [#/Vol] 0.03 10*3/uL Normal <0.10 [facility] Comment on above: Order Comment: Speci men Type: BLOOD SPECIMENOrdering Facility: [facility] Address: [address] [place] [address] Performed By: #### 5 7021-8 ####[facility] LABORATORYCLIA [id number] [address] [place] Immature granulocytes/100 WBC (Bld) 0.4 % Normal [facility] Comment on above: Order Comment: Speci men Type: BLOOD SPECIMENOrdering Facility: [facility] Address: [address] [place] [address] Performed By: #### 5 7021-8 ####[facility] LABORATORYCLIA [id number] [address] [place] Lymphocytes (Bld) [#/Vol] 1.35 10*3/uL Normal 1.00-4.00 [facility] Comment on above: Order Comment: Speci men Type: BLOOD SPECIMENOrdering Facility: [facility] Address: [address] [place] [address] Performed By: #### 5 7021-8 ####[facility] LABORATORYCLIA [id number] [address] [place] Lymphocytes/100 WBC (Bld) 18.0 % Normal [facility] Comment on above: Order Comment: Speci men Type: BLOOD SPECIMENOrdering Facility: [facility] Address: [address] [place] [address] Performed By: #### 5 7021-8 ####[facility] LABORATORYCLIA [id number] [address] STATES OF [facility] MCH (RBC) [Entitic mass] 38.3 pg High 26.0-34.0 [facility] Comment on above: Order Comment: Speci men Type: BLOOD SPECIMENOrdering Facility: [facility] Address: [address] [place] [address] Performed By: #### 5 7021-8 ####[facility] LABORATORYCLIA [id number] [address] [place] MCHC (RBC) [Mass/Vol] 32.6 g/dL Normal 30.5-36.0 [facility] Comment on above: Order Comment: Speci men Type: BLOOD SPECIMENOrdering Facility: [facility] Address: [address] [place] [address] Performed By: #### 5 7021-8 ####[facility] LABORATORYCLIA [id number] [address] MCV (RBC) [Entitic vol] 117.6 fL High 80.0-100.0 [facility] Comment on above: Order Comment: Speci men Type: BLOOD SPECIMENOrdering Facility: [facility] Address: [address] [place] [address] Performed By: #### 5 7021-8 ####[facility] LABORATORYCLIA [id number] [address] Monocytes (Bld) [#/Vol] 0.96 10*3/uL High <0.87 [facility] Comment on above: Order Comment: Speci men Type: BLOOD SPECIMENOrdering Facility: [facility] Address: [address] [place] [address] Performed By: #### 5 7021-8 ####[facility] LABORATORYCLIA [id number] [address] [place] Monocytes/100 WBC (Bld) 12.8 % Normal [facility] Comment on above: Order Comment: Speci men Type: BLOOD SPECIMENOrdering Facility: [facility] Address: [address] [place] [address] Performed By: #### 5 7021-8 ####[facility] LABORATORYCLIA [id number] [address] [place] Neutrophils (Bld) [#/Vol] 4.98 10*3/uL Normal 1.45-7.50 [facility] Comment on above: Order Comment: Speci men Type: BLOOD SPECIMENOrdering Facility: [facility] Address: [address] [place] [address] Performed By: #### 5 7021-8 ####[facility] LABORATORYCLIA [id number] [address] [place] Neutrophils/100 WBC (Bld) 66.2 % Normal [facility] Comment on above: Order Comment: Speci men Type: BLOOD SPECIMENOrdering Facility: [facility] Address: [address] [place] [address] Performed By: #### 5 7021-8 ####[facility] LABORATORYCLIA [id number] [place] [address] [place] Nucleated RBC (Bld) [#/Vol] 0.08 10*3/uL High <0.01 [facility] Comment on above: Order Comment: Speci men Type: BLOOD SPECIMENOrdering Facility: [facility] Address: [address] [place] [address] Performed By: #### 5 7021-8 ####[facility] LABORATORYCLIA [id number] [address] [place] Nucleated RBC/100 WBC (Bld) [Ratio] 1.1 /100 WBC Normal [facility] Comment on above: Order Comment: Speci men Type: BLOOD SPECIMENOrdering Facility: [facility] Address: [address] [place] [address] Performed By: #### 5 7021-8 ####[facility] LABORATORYCLIA [id number] [address] [place] Platelet mean volume (Bld) [Entitic vol] 11.0 fL Normal 9.0-12.7 [facility] Comment on above: Order Comment: Speci men Type: BLOOD SPECIMENOrdering Facility: [facility] Address: [address] [place] [address] Performed By: #### 5 7021-8 ####[facility] LABORATORYCLIA [id number] [address] [place] Platelets (Bld) [#/Vol] 292 10*3/uL Normal 150-400 [facility] Comment on above: Order Comment: Speci men Type: BLOOD SPECIMENOrdering Facility: [facility] Address: [address] [place] [address] Performed By: #### 5 7021-8 ####[facility] LABORATORYCLIA [id number] [place] [address] [place] RBC (Bld) [#/Vol] 2.22 10*6/uL Low 4.20-6.00 [facility] Comment on above: Order Comment: Speci men Type: BLOOD SPECIMENOrdering Facility: [facility] Address: [address] [place] [address] Performed By: #### 5 7021-8 ####[facility] LABORATORYCLIA [id number] [address] [place] WBC (Bld) [#/Vol] 7.52 10*3/uL Normal 3.70-11.00 [facility] Comment on above: Order Comment: Speci men Type: BLOOD SPECIMENOrdering Facility: [facility] Address: [address] [place] [address] Performed By: #### 5 7021-8 ####[facility] LABORATORYCLIA [id number] [place] [address] [place] Basophils (Bld) [#/Vol] 0.04 10*3/uL <0.11 k/uL [facility] Basophils/100 WBC (Bld) 0.5 % [facility] Differential cell count method Nom (Bld) Auto [facility] Eosinophils (Bld) [#/Vol] 0.16 10*3/uL <0.46 k/uL [facility] Eosinophils/100 WBC (Bld) 2.1 % [facility] Erythrocyte distribution width (RBC) [Ratio] 19.3 % High 11.5 - 15.0 % [facility] Hematocrit (Bld) [Volume fraction] 26.1 % Low 39.0 - 51.0 % [facility] Hemoglobin (Bld) [Mass/Vol] 8.5 g/dL Low 13.0 - 17.0 g/dL [facility] Immature granulocytes (Bld) [#/Vol] 0.03 10*3/uL <0.10 k/uL [facility] Immature granulocytes/100 WBC (Bld) 0.4 % [facility] Lymphocytes (Bld) [#/Vol] 1.35 10*3/uL 1.00 - 4.00 k/uL [facility] Lymphocytes/100 WBC (Bld) 18.0 % [facility] MCH (RBC) [Entitic mass] 38.3 pg High 26.0 - 34.0 pg [facility] MCHC (RBC) [Mass/Vol] 32.6 g/dL 30.5 - 36.0 g/dL [facility] MCV (RBC) [Entitic vol] 117.6 fL High 80.0 - 100.0 fL [facility] Monocytes (Bld) [#/Vol] 0.96 10*3/uL High <0.87 k/uL [facility] Monocytes/100 WBC (Bld) 12.8 % [facility] Neutrophils (Bld) [#/Vol] 4.98 10*3/uL 1.45 - 7.50 k/uL [facility] Neutrophils/100 WBC (Bld) 66.2 % [facility] Nucleated RBC (Bld) [#/Vol] 0.08 10*3/uL High <0.01 k/uL [facility] Nucleated RBC/100 WBC (Bld) [Ratio] 1.1 /100 WBC [facility] Platelet mean volume (Bld) [Entitic vol] 11.0 fL 9.0 - 12.7 fL [facility] Platelets (Bld) [#/Vol] 292 10*3/uL 150 - 400 k/uL [facility] RBC (Bld) [#/Vol] 2.22 10*6/uL Low 4.20 - 6.00 m/uL [facility] WBC (Bld) [#/Vol] 7.52 10*3/uL 3.70 - 11.00 k/uL [facility] CNOVSPon 12-04-2022 CNOVSP Normal [facility] CNSWon 12-04-2022 CNSW Normal [facility] CBC W Auto Differential pane l (Bld)on 11-26-2022 Basophils (Bld) [#/Vol] 0.06 10*3/uL Normal <0.11 [facility] Comment on above: Order Comment: Speci men Type: BLOOD SPECIMENOrdering Facility: [facility] Address: [address] [place] [address] Performed By: #### 5 7021-8 ####[facility] LABORATORYCLIA [id number] [address] [place] Basophils/100 WBC (Bld) 1.0 % Normal [facility] Comment on above: Order Comment: Speci men Type: BLOOD SPECIMENOrdering Facility: [facility] Address: [address] [place] [address] Performed By: #### 5 7021-8 ####[facility] LABORATORYCLIA [id number] [place] [address] [place] Differential cell count method Nom (Bld) Auto Normal [facility] Comment on above: Order Comment: Speci men Type: BLOOD SPECIMENOrdering Facility: [facility] Address: [address] [place] [address] Performed By: #### 5 7021-8 ####[facility] LABORATORYCLIA [id number] [place] [address] [place] Eosinophils (Bld) [#/Vol] 0.21 10*3/uL Normal <0.46 [facility] Comment on above: Order Comment: Speci men Type: BLOOD SPECIMENOrdering Facility: [facility] Address: [address] [place] [address] Performed By: #### 5 7021-8 ####[facility] LABORATORYCLIA [id number] [address] [place] Eosinophils/100 WBC (Bld) 3.4 % Normal [facility] Comment on above: Order Comment: Speci men Type: BLOOD SPECIMENOrdering Facility: [facility] Address: [address] [place] [address] Performed By: #### 5 7021-8 ####[facility] LABORATORYCLIA [id number] [address] [place] Erythrocyte distribution width (RBC) [Ratio] 19.2 % High 11.5-15.0 [facility] Comment on above: Order Comment: Speci men Type: BLOOD SPECIMENOrdering Facility: [facility] Address: [address] [place] [address] Performed By: #### 5 7021-8 ####[facility] LABORATORYCLIA [id number] [address] [place] Hematocrit (Bld) [Volume fraction] 26.1 % Low 39.0-51.0 [facility] Comment on above: Order Comment: Speci men Type: BLOOD SPECIMENOrdering Facility: [facility] Address: [address] [place] [address] Performed By: #### 5 7021-8 ####[facility] LABORATORYCLIA [id number] [address] [place] Hemoglobin (Bld) [Mass/Vol] 8.3 g/dL Low 13.0-17.0 [facility] Comment on above: Order Comment: Speci men Type: BLOOD SPECIMENOrdering Facility: [facility] Address: [address] [place] [address] Performed By: #### 5 7021-8 ####[facility] LABORATORYCLIA [id number] [address] [place] Immature granulocytes (Bld) [#/Vol] 10*3/uL Normal <0.10 [facility] Comment on above: Order Comment: Speci men Type: BLOOD SPECIMENOrdering Facility: [facility] Address: [address] [place] [address] Performed By: #### 5 7021-8 ####[facility] LABORATORYCLIA [id number] [address] [place] [facility] Immature granulocytes/100 WBC (Bld) 0.3 % Normal [facility] Comment on above: Order Comment: Speci men Type: BLOOD SPECIMENOrdering Facility: [facility] Address: [address] [place] [address] Performed By: #### 5 7021-8 ####[facility]ORATORYCLIA [id number] [address] [place] Lymphocytes (Bld) [#/Vol] 1.47 10*3/uL Normal 1.00-4.00 [facility] Comment on above: Order Comment: Speci men Type: BLOOD SPECIMENOrdering Facility: [facility] Address: [address] [place] [address] Performed By: #### 5 7021-8 ####[facility] LABORATORYCLIA [id number] [address] Lymphocytes/100 WBC (Bld) 23.9 % Normal [facility] Comment on above: Order Comment: Speci men Type: BLOOD SPECIMENOrdering Facility: [facility] Address: [address] [place] [address] Performed By: #### 5 7021-8 ####[facility]ORATORYCLIA [id number] [address] [place] MCH (RBC) [Entitic mass] 37.4 pg High 26.0-34.0 [facility] Comment on above: Order Comment: Speci men Type: BLOOD SPECIMENOrdering Facility: [facility] Address: [address] [place] [address] Performed By: #### 5 7021-8 ####[facility]ORATORYCLIA [id number] [address] [place] MCHC (RBC) [Mass/Vol] 31.8 g/dL Normal 30.5-36.0 [facility] Comment on above: Order Comment: Speci men Type: BLOOD SPECIMENOrdering Facility: [facility] Address: [address] [place] [address] Performed By: #### 5 7021-8 ####[facility] LABORATORYCLIA [id number] [address] [place] MCV (RBC) [Entitic vol] 117.6 fL High 80.0-100.0 [facility] Comment on above: Order Comment: Speci men Type: BLOOD SPECIMENOrdering Facility: [facility] Address: [address] [place] [address] Performed By: #### 5 7021-8 ####[facility]ORATORYCLIA [id number] [address] [place] Monocytes (Bld) [#/Vol] 0.80 10*3/uL Normal <0.87 [facility] Comment on above: Order Comment: Speci men Type: BLOOD SPECIMENOrdering Facility: [facility] Address: [address] [place] [address] Performed By: #### 5 7021-8 ####[facility]ORATORYCLIA [id number] [address] [place] Monocytes/100 WBC (Bld) 13.0 % Normal [facility] Comment on above: Order Comment: Speci men Type: BLOOD SPECIMENOrdering Facility: [facility] Address: [address] [place] [address] Performed By: #### 5 7021-8 ####[facility] LABORATORYCLIA [id number] [place] [address] [place] Neutrophils (Bld) [#/Vol] 3.58 10*3/uL Normal 1.45-7.50 [facility] Comment on above: Order Comment: Speci men Type: BLOOD SPECIMENOrdering Facility: [facility] Address: [address] [place] [address] Performed By: #### 5 7021-8 ####[facility] LABORATORYCLIA [id number] [address] [place] Neutrophils/100 WBC (Bld) 58.4 % Normal [facility] Comment on above: Order Comment: Speci men Type: BLOOD SPECIMENOrdering Facility: [facility] Address: [address] [place] [address] Performed By: #### 5 7021-8 ####[facility] LABORATORYCLIA [id number] [address] [place] Nucleated RBC (Bld) [#/Vol] 0.03 10*3/uL High <0.01 [facility] Comment on above: Order Comment: Speci men Type: BLOOD SPECIMENOrdering Facility: [facility] Address: [address] [place] [address] Performed By: #### 5 7021-8 ####[facility] LABORATORYCLIA [id number] [address] [place] Nucleated RBC/100 WBC (Bld) [Ratio] 0.5 /100 WBC Normal [facility] Comment on above: Order Comment: Speci men Type: BLOOD SPECIMENOrdering Facility: [facility] Address: [address] [place] [address] Performed By: #### 5 7021-8 ####[facility] LABORATORYCLIA [id number] [place] [address] [place] Platelet mean volume (Bld) [Entitic vol] 11.5 fL Normal 9.0-12.7 [facility] Comment on above: Order Comment: Speci men Type: BLOOD SPECIMENOrdering Facility: [facility] Address: [address] [place] [address] Performed By: #### 5 7021-8 ####[facility]ORATORYCLIA [id number] [place] [address] [place] Platelets (Bld) [#/Vol] 292 10*3/uL Normal 150-400 [facility] Comment on above: Order Comment: Speci men Type: BLOOD SPECIMENOrdering Facility: [facility] Address: [address] [address] Performed By: #### 5 7021-8 ####[facility]ORATORYCLIA [id number] [address] STATES OF [facility] RBC (Bld) [#/Vol] 2.22 10*6/uL Low 4.20-6.00 [facility] Comment on above: Order Comment: Speci men Type: BLOOD SPECIMENOrdering Facility: [facility] Address: [address] [address] Performed By: #### 5 7021-8 ####[facility]ORATORYCLIA [id number] [address] WBC (Bld) [#/Vol] 6.14 10*3/uL Normal 3.70-11.00 [facility] Comment on above: Order Comment: Speci men Type: BLOOD SPECIMENOrdering Facility: [facility] Address: [address] [address] Performed By: #### 5 7021-8 ####[facility]ORATORYCLIA [id number] [address] OF [facility] CNOVSPon 11-26-2022 CNOVSP Normal [facility] CNPNon 11-26-2022 CNPN Normal [facility] EPO SerPl-aCncon 11-26-2022 Erythropoietin (EPO) Qn 74.5 mIU/mL High 2.6-18.5 [facility] Comment on above: Order Comment: Speci men Type: BLOOD SPECIMENOrdering Facility: [facility] Address: [address] [place] [address] Performed By: #### 1 5061-5 ####[facility] LABCLIA [id number] [facility] [id number] [place] CNPNon 11-06-2022 CNPN Normal [facility] CBC W Auto Differential pane l (Bld)on 11-05-2022 Basophils (Bld) [#/Vol] 0.07 10*3/uL Normal <0.11 [facility] Comment on above: Order Comment: Speci men Type: BLOOD SPECIMENOrdering Facility: [facility] Address: [address] [place] [address] Performed By: #### 5 7021-8 ####[facility]ATORYCLIA [id number] [address] [place] Basophils/100 WBC (Bld) 1.0 % Normal [facility] Comment on above: Order Comment: Speci men Type: BLOOD SPECIMENOrdering Facility: [facility] Address: [address] [place] [address] Performed By: #### 5 7021-8 ####[facility] LABORATORYCLIA [id number] [address] [place] Differential cell count method Nom (Bld) Auto Normal [facility] Comment on above: Order Comment: Speci men Type: BLOOD SPECIMENOrdering Facility: [facility] Address: [address] [place] [address] Performed By: #### 5 7021-8 ####[facility]ATORYCLIA [id number] [place] [address] [place] Eosinophils (Bld) [#/Vol] 0.19 10*3/uL Normal <0.46 [facility] Comment on above: Order Comment: Speci men Type: BLOOD SPECIMENOrdering Facility: [facility] Address: [address] [address] Performed By: #### 5 7021-8 ####[facility]ATORYCLIA [id number] [address] [place] Eosinophils/100 WBC (Bld) 2.7 % Normal [facility] Comment on above: Order Comment: Speci men Type: BLOOD SPECIMENOrdering Facility: [facility] Address: [address] [place] [address] Performed By: #### 5 7021-8 ####[facility]ATORYCLIA [id number] [address] [place] Erythrocyte distribution width (RBC) [Ratio] 18.8 % High 11.5-15.0 [facility] Comment on above: Order Comment: Speci men Type: BLOOD SPECIMENOrdering Facility: [facility] Address: [address] [place] [address] Performed By: #### 5 7021-8 ####[facility]ATORYCLIA [id number] [address] [place] Hematocrit (Bld) [Volume fraction] 24.2 % Low 39.0-51.0 [facility] Comment on above: Order Comment: Speci men Type: BLOOD SPECIMENOrdering Facility: [facility] Address: [address] [place] [address] Performed By: #### 5 7021-8 ####[facility]ATORYCLIA [id number] [address] [place] Hemoglobin (Bld) [Mass/Vol] 7.9 g/dL Low 13.0-17.0 [facility] Comment on above: Order Comment: Speci men Type: BLOOD SPECIMENOrdering Facility: [facility] Address: [address] [place] [address] Performed By: #### 5 7021-8 ####[facility]ATORYCLIA [id number] [address] [place] Immature granulocytes (Bld) [#/Vol] 0.03 10*3/uL Normal <0.10 [facility] Comment on above: Order Comment: Speci men Type: BLOOD SPECIMENOrdering Facility: [facility] Address: [address] [place] [address] Performed By: #### 5 7021-8 ####[facility]ATORYCLIA [id number] [address] Immature granulocytes/100 WBC (Bld) 0.4 % Normal [facility] Comment on above: Order Comment: Speci men Type: BLOOD SPECIMENOrdering Facility: [facility] Address: [address] [address] Performed By: #### 5 7021-8 ####[facility]ATORYCLIA [id number] [address] [place] Lymphocytes (Bld) [#/Vol] 1.08 10*3/uL Normal 1.00-4.00 [facility] Comment on above: Order Comment: Speci men Type: BLOOD SPECIMENOrdering Facility: [facility] Address: [address] [place] [address] Performed By: #### 5 7021-8 ####[facility]ATORYCLIA [id number] [address] Lymphocytes/100 WBC (Bld) 15.6 % Normal [facility] Comment on above: Order Comment: Speci men Type: BLOOD SPECIMENOrdering Facility: [facility] Address: [address] [place] [address] Performed By: #### 5 7021-8 ####[facility]ATORYCLIA [id number] [address] STATES OF [facility] MCH (RBC) [Entitic mass] 38.0 pg High 26.0-34.0 [facility] Comment on above: Order Comment: Speci men Type: BLOOD SPECIMENOrdering Facility: [facility] Address: [address] [place] [address] Performed By: #### 5 7021-8 ####[facility]ATORYCLIA [id number] [address] [place] MCHC (RBC) [Mass/Vol] 32.6 g/dL Normal 30.5-36.0 [facility] Comment on above: Order Comment: Speci men Type: BLOOD SPECIMENOrdering Facility: [facility] Address: [address] [place] [address] Performed By: #### 5 7021-8 ####[facility]ATORYCLIA [id number] [address] [place] MCV (RBC) [Entitic vol] 116.3 fL High 80.0-100.0 [facility] Comment on above: Order Comment: Speci men Type: BLOOD SPECIMENOrdering Facility: [facility] Address: [address] [place] [address] Performed By: #### 5 7021-8 ####[facility]ATORYCLIA [id number] [place] [address] [place] Monocytes (Bld) [#/Vol] 1.06 10*3/uL High <0.87 [facility] Comment on above: Order Comment: Speci men Type: BLOOD SPECIMENOrdering Facility: [facility] Address: [address] [place] [address] Performed By: #### 5 7021-8 ####[facility]ORATORYCLIA [id number] [address] [place] Monocytes/100 WBC (Bld) 15.3 % Normal [facility] Comment on above: Order Comment: Speci men Type: BLOOD SPECIMENOrdering Facility: [facility] Address: [address] [place] [address] Performed By: #### 5 7021-8 ####[facility]ATORYCLIA [id number] [address] [place] Neutrophils (Bld) [#/Vol] 4.50 10*3/uL Normal 1.45-7.50 [facility] Comment on above: Order Comment: Speci men Type: BLOOD SPECIMENOrdering Facility: [facility] Address: [address] [place] [address] Performed By: #### 5 7021-8 ####[facility]ATORYCLIA [id number] [address] [place] Neutrophils/100 WBC (Bld) 65.0 % Normal [facility] Comment on above: Order Comment: Speci men Type: BLOOD SPECIMENOrdering Facility: [facility] Address: [address] [place] [address] Performed By: #### 5 7021-8 ####[facility]ATORYCLIA [id number] [address] [place] Nucleated RBC (Bld) [#/Vol] 0.03 10*3/uL High <0.01 [facility] Comment on above: Order Comment: Speci men Type: BLOOD SPECIMENOrdering Facility: [facility] Address: [address] [place] [address] Performed By: #### 5 7021-8 ####[facility]ATORYCLIA [id number] [address] [place] Nucleated RBC/100 WBC (Bld) [Ratio] 0.4 /100 WBC Normal [facility] Comment on above: Order Comment: Speci men Type: BLOOD SPECIMENOrdering Facility: [facility] Address: [address] [place] [address] Performed By: #### 5 7021-8 ####[facility]ATORYCLIA [id number] [address] [place] Platelet mean volume (Bld) [Entitic vol] 11.3 fL Normal 9.0-12.7 [facility] Comment on above: Order Comment: Speci men Type: BLOOD SPECIMENOrdering Facility: [facility] Address: [address] [place] [address] Performed By: #### 5 7021-8 ####[facility]ATORYCLIA [id number] [address] [place] Platelets (Bld) [#/Vol] 289 10*3/uL Normal 150-400 [facility] Comment on above: Order Comment: Speci men Type: BLOOD SPECIMENOrdering Facility: [facility] Address: [address] [place] [address] Performed By: #### 5 7021-8 ####[facility]ATORYCLIA [id number] [address] [place] RBC (Bld) [#/Vol] 2.08 10*6/uL Low 4.20-6.00 [facility] Comment on above: Order Comment: Speci men Type: BLOOD SPECIMENOrdering Facility: [facility] Address: [address] [place] [address] Performed By: #### 5 7021-8 ####[facility]ATORYCLIA [id number] [place] [address] [place] [facility] WBC (Bld) [#/Vol] 6.93 10*3/uL Normal 3.70-11.00 [facility] Comment on above: Order Comment: Speci men Type: BLOOD SPECIMENOrdering Facility: [facility] Address: [address] [address] Performed By: #### 5 7021-8 ####[facility]ATORYCLIA [id number] [address] CNOVSPon 11-05-2022 CNOVSP Normal [facility] COPPER BLOODon 11-05-2022 Copper [Mass/Vol] 100 ug/dL Normal 70-140 [facility] Comment on above: Order Comment: Speci [facility] Type: BLOOD SPECIMENOrdering Facility: [facility] Address: [address] [place] [address] Result Comment: This test was developed and its performance characteristics determined by [facility] [place] (-[facility]). It has not been cleared or approved by the FDA. -PLDE is regulated under CLIA as qualified to perform high-complexity testing. This test is used for clinical purposes. It should not be regarded as investigational or for research. Performed By: #### C OPPER ####[facility] LABCLIA [id number] [address] [place] EPO SerPl-aCncon 11-05-2022 Erythropoietin (EPO) Qn 79.6 mIU/mL High 2.6-18.5 [facility] Comment on above: Order Comment: Speci men Type: BLOOD SPECIMENOrdering Facility: [facility] Address: [address] [place] [address] Performed By: #### 1 5061-5 ####[facility] LABCLIA [id number] [place] [id number] BONE MARROW ANALYSISon 10-24 ADDENDUM 1: Normal [facility] Comment on above: Order Comment: Speci men Type: BONE MARROW SPECIMENOrdering Facility: [facility] Address: [address] [id number] Result Comment: Cyto genetics (see separate report) revealed a normal male karyotype: 46,XY[20]. The myeloid NGS panel (see separate report) identified the following variants (with VAFs): SF3B1 p.H662Q (41.7%) and TET2 p.Z9377Erg*6 (46%). 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 The threshold for absolute monocytosis in CMML has since been lowered to 0.5 k/uL (from 1.0 k/uL in the 2016 WHO), which accounts for the discrepancy. Further, the category of CMML-0 (which this neoplasm would have otherwise been classified as) has been eliminated by both classification systems in lieu of a two-tiered blast-based grading scheme (of CMML-1 and -2 only). The patient had a single CBC since 2019 (specifically 08/24/2022) in which there was not a relative monocytosis; this is attributable to transiently increased neutrophils in the setting of acute stroke/ischemia, and is here regarded as an outlier.Addendum electronically signed by Nnamdi Hernandez MD on 11/12/2022 at 3:48 PM Performed By: #### B MRT ####[facility]ATORYCLIA [id number] [address] ADDENDUM 2: Normal [facility] Comment on above: Order Comment: Speci men Type: BONE MARROW SPECIMENOrdering Facility: [facility] Address: [place] [address] Result Comment: The gross description for part A is as follows:A. BONE MARROW ASPIRATE LEFT POSTERIOR ILIAC CRESTReceived are air-dried bone marrow aspirate smears. Submitted for light microscopy.Addendum electronically signed by Nnamdi Hernandez MD on 11/12/2022 at 4:01 PM Performed By: #### B MRT ####[facility]ATORYCLIA [id number] [address] CASE REPORT Normal [facility] Comment on above: Order Comment: Speci men Type: BONE MARROW SPECIMENOrdering Facility: [facility] Address: [address] [place] [address] Result Comment: Bone Marrow Pathology Report Case: [id number] Provider: Randa Rowell DO Collected: 10/24/2022 12:31 PMOrdering Location: [facility] Received: 10/24/2022 02:31 PM INTERVENTIONAL RADIOLOGYPathologist: MATTHIAS Ordonezpecimens: A) - BONE MARROW ASPIRATE LEFT POSTERIOR ILIAC CREST B) - BONE MARROW BIOPSY LEFT POSTERIOR ILIAC CREST C) - BONE MARROW CLOT LEFT POSTERIOR ILIAC CREST Performed By: #### B MRT ####[facility]ORATORYCLIA [id number] [address] DIAGNOSIS COMMENT Normal [facility] Comment on above: Order Comment: Speci men Type: BONE MARROW SPECIMENOrdering Facility: [facility] Address: [address] [place] [address] Performed By: #### B MRT ####[facility]ATORYCLIA [id number] [address] FINAL DIAGNOSIS Normal [facility] Comment on above: Order Comment: Speci men Type: BONE MARROW SPECIMENOrdering Facility: [facility] Address: [address] [place] [address] Result Comment: A-C. 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 Performed By: #### B MRT ####[facility]ATORYCLIA [id number] FINAL PERFORMING LAB Normal [facility] Comment on above: Order Comment: Speci men Type: BONE MARROW SPECIMENOrdering Facility: [facility] Address: [address] [address] Result Comment: Diag nostic interpretation performed at [facility], [address] [place] [address] CLIA# [id number] Director: Ned Meza M.D. Performed By: #### B MRT ####[facility]ATORYCLIA [id number] [address] GROSS DESCRIPTION Normal [facility] Comment on above: Order Comment: Speci men Type: BONE MARROW SPECIMENOrdering Facility: [facility] Address: [address] [address] Result Comment: B. B ONE MARROW BIOPSY LEFT POSTERIOR ILIAC CRESTReceived in formalin 1 segment of cylindrical tissue aggregating to 0.9 x 0.2 x 0.2 cm, nesbitt to red-brown and of a firm consistency. Totally submitted in formalin in one cassette after decalcification.Gross examination performed at [facility], [address] [place] [address] CLIA# [id number]. BONE MARROW CLOT LEFT POSTERIOR ILIAC CRESTReceived in formalin are multiple nesbitt, soft feathery segments of tissue and a segment of red-brown hemorrhagic material aggregating to 2.0 x 1.6 x 0.4 cm. Totally submitted in one cassette.Gross examination performed at [facility], [address] [place] [address] CLIA# [id number] Gross examination performed at [facility], [address] [place], [place] [address]KVB October 27, 2022 2:42 PM Performed By: #### B MRT ####[facility]ATORYCLIA [id number] [address] MICROSCOPIC DESCRIPTION Normal [facility] Comment on above: Order Comment: Speci men Type: BONE MARROW SPECIMENOrdering Facility: [facility] Address: [address] [place] [address] [place] [address] Result Comment: DESIREE PHERAL BLOOD:CBC DiffWBC 6.01 k/uL Neut% 68.1 %Hemoglobin 8.4 g/dL Lymph% 17.6 %MCV 113.1 fL Weld% 11.1 %RDW-CV 18.8 % Eosin% 1.7 %Platelet Count 251 k/uL Baso% .8 %Other:Morphology/Interpretation: Review of the peripheral smear reveals macrocytic anemia with mild anisocytosis and occasional forms with basophilic stippling. Leukocytes have normal morphology. There is a mild relative monocytosis.BONE MARROW ASPIRATE:Result Normal Range1 % Blasts 0-21 % Promyelocytes 1-551 % Myelos/Metas/Bands/Segs 32-723 % Eosinophils 1-60 % Basophils 0-11 % Monocytes 0-436 % Erythroid precursors 13-377 % Lymphocytes 7-23<1 % Plasma cells 0-2 Myeloid/Erythro (1.5-4): 1.58 Cells counted: 300 Iron stain result: An iron stain reveals increased ring sideroblasts (at least 55% of erythroid forms in a 100-erythroid cell count) and the presence of stainable storage iron. Specimen Quality: Cellular and spicular. Megakaryocytes: Present and include some forms with nuclear lobes. Erythropoiesis: Complete and include forms with nuclear contour irregularities, budding, binucleation and nuclear-cytoplasmic asynchrony. Granulopoiesis: Normal. Other: A touch prep slide is paucicellular with similar morphologic findings as the aspirate smear.BONE MARROW BIOPSY: Adequacy: Small and fragmented, though adequate for evaluation. Cellularity: Overall approximately 30% cellular. ME ratio: Normal. Hematopoiesis: Complete. Megakaryocytes: Adequate in number. Megakaryocyte morphology: Include forms with nuclear lobes. Lymphoid infiltrate: No lymphoid aggregates are identified. Other: A reticulin stain demonstrates no increased fiber staining. An iron stain reveals the presence of stainable storage iron. A PAS demonstrates similar morphologic findings as the H&E stain (see above).CLOT SECTION: Marrow particles: Present. Morphology: Similar to biopsy specimen (see above).ANCILLARY TESTS: Flow cytometry: Flow cytometric analysis of the bone marrow aspirate (see separate report) reveals that 5% of total events have the CD45 and light scatter properties of lymphocytes. The lymphocytes are composed of T-cells (79%, CD4:CD8 ratio = 1.43), NK cells (15%), and polytypic B-cells (7%). Granulocytic elements are 64% of events. Blasts are not increased. Cytogenetics: Pending. Molecular: Myeloid NGS pending. Performed By: #### B MRT ####[facility]ATORYCLIA [id number] [address] [facility] BRIEF OP NOTon 10-24-2022 BRIEF OP NOT Normal [facility] CBC W Auto Differential pane l (Bld)on 10-24-2022 Basophils (Bld) [#/Vol] 0.05 10*3/uL Normal <0.11 [facility] Comment on above: Order Comment: Speci men Type: BLOOD SPECIMENOrdering Facility: [facility] Address: [address] [place] [address] Performed By: #### 5 7021-8 ####[facility]ORYCLIA [id number] [address] Basophils/100 WBC (Bld) 0.8 % Normal [facility] Comment on above: Order Comment: Speci men Type: BLOOD SPECIMENOrdering Facility: [facility] Address: [address] [place] [address] Performed By: #### 5 7021-8 ####[facility]ATORYCLIA [id number] [address] STATES OF [facility] Differential cell count method Nom (Bld) Auto Normal [facility] Comment on above: Order Comment: Speci men Type: BLOOD SPECIMENOrdering Facility: [facility] Address: [address] [address] Performed By: #### 5 7021-8 ####[facility]ATORYCLIA [id number] [address] [place] Eosinophils (Bld) [#/Vol] 0.10 10*3/uL Normal <0.46 [facility] Comment on above: Order Comment: Speci men Type: BLOOD SPECIMENOrdering Facility: [facility] Address: [address] [address] Performed By: #### 5 7021-8 ####[facility]ORYCLIA [id number] [address] Eosinophils/100 WBC (Bld) 1.7 % Normal [facility] Comment on above: Order Comment: Speci men Type: BLOOD SPECIMENOrdering Facility: [facility] Address: [address] [place] [address] Performed By: #### 5 7021-8 ####[facility]ORYCLIA [id number] [address] Erythrocyte distribution width (RBC) [Ratio] 18.8 % High 11.5-15.0 [facility] Comment on above: Order Comment: Speci men Type: BLOOD SPECIMENOrdering Facility: [facility] Address: [address] [place] [address] Performed By: #### 5 7021-8 ####[facility]ORYCLIA [id number] [address] Hematocrit (Bld) [Volume fraction] 25.0 % Low 39.0-51.0 [facility] Comment on above: Order Comment: Speci men Type: BLOOD SPECIMENOrdering Facility: [facility] Address: [address] [place] [address] Performed By: #### 5 7021-8 ####[facility]ATORYCLIA [id number] [address] [place] Hemoglobin (Bld) [Mass/Vol] 8.4 g/dL Low 13.0-17.0 [facility] Comment on above: Order Comment: Speci men Type: BLOOD SPECIMENOrdering Facility: [facility] Address: [address] [place] [address] Performed By: #### 5 7021-8 ####[facility]ATORYCLIA [id number] [address] Immature granulocytes (Bld) [#/Vol] 0.04 10*3/uL Normal <0.10 [facility] Comment on above: Order Comment: Speci men Type: BLOOD SPECIMENOrdering Facility: [facility] Address: [address] [place] [address] Performed By: #### 5 7021-8 ####[facility]ATORYCLIA [id number] [address] Immature granulocytes/100 WBC (Bld) 0.7 % Normal [facility] Comment on above: Order Comment: Speci men Type: BLOOD SPECIMENOrdering Facility: [facility] Address: [address] [place] [address] Performed By: #### 5 7021-8 ####[facility]ATORYCLIA [id number] [address] [facility] Lymphocytes (Bld) [#/Vol] 1.06 10*3/uL Normal 1.00-4.00 [facility] Comment on above: Order Comment: Speci men Type: BLOOD SPECIMENOrdering Facility: [facility] Address: [address] [place] [address] Performed By: #### 5 7021-8 ####[facility]ATORYCLIA [id number] [address] Lymphocytes/100 WBC (Bld) 17.6 % Normal [facility] Comment on above: Order Comment: Speci men Type: BLOOD SPECIMENOrdering Facility: [facility] Address: [address] [place] [address] Performed By: #### 5 7021-8 ####[facility]ORATORYCLIA [id number] [address] [facility] MCH (RBC) [Entitic mass] 38.0 pg High 26.0-34.0 [facility] Comment on above: Order Comment: Speci men Type: BLOOD SPECIMENOrdering Facility: [facility] Address: [address] [place] [address] Performed By: #### 5 7021-8 ####[facility]ATORYCLIA [id number] [address] MCHC (RBC) [Mass/Vol] 33.6 g/dL Normal 30.5-36.0 [facility] Comment on above: Order Comment: Speci men Type: BLOOD SPECIMENOrdering Facility: [facility] Address: [address] [address] Performed By: #### 5 7021-8 ####[facility]ATORYCLIA [id number] [address] [place] MCV (RBC) [Entitic vol] 113.1 fL High 80.0-100.0 [facility] Comment on above: Order Comment: Speci men Type: BLOOD SPECIMENOrdering Facility: [facility] Address: [address] [place] [address] Performed By: #### 5 7021-8 ####[facility] LABORATORYCLIA [id number] [address] [place] Monocytes (Bld) [#/Vol] 0.67 10*3/uL Normal <0.87 [facility] Comment on above: Order Comment: Speci men Type: BLOOD SPECIMENOrdering Facility: [facility] Address: [address] [place] [address] Performed By: #### 5 7021-8 ####[facility] LABORATORYCLIA [id number] [address] Monocytes/100 WBC (Bld) 11.1 % Normal [facility] Comment on above: Order Comment: Speci men Type: BLOOD SPECIMENOrdering Facility: [facility] Address: [address] [place] [address] Performed By: #### 5 7021-8 ####[facility] LABORATORYCLIA [id number] [address] [place] Neutrophils (Bld) [#/Vol] 4.09 10*3/uL Normal 1.45-7.50 [facility] Comment on above: Order Comment: Speci men Type: BLOOD SPECIMENOrdering Facility: [facility] Address: [address] [place] [address] Performed By: #### 5 7021-8 ####[facility]ORATORYCLIA [id number] [address] [place] Neutrophils/100 WBC (Bld) 68.1 % Normal [facility] Comment on above: Order Comment: Speci men Type: BLOOD SPECIMENOrdering Facility: [facility] Address: [address] [place] [address] Performed By: #### 5 7021-8 ####[facility] LABORATORYCLIA [id number] [place] [address] [place] Nucleated RBC (Bld) [#/Vol] 0.05 10*3/uL High <0.01 [facility] Comment on above: Order Comment: Speci men Type: BLOOD SPECIMENOrdering Facility: [facility] Address: [address] [place] [address] Performed By: #### 5 7021-8 ####[facility] LABORATORYCLIA [id number] [address] Nucleated RBC/100 WBC (Bld) [Ratio] 0.8 /100 WBC Normal [facility] Comment on above: Order Comment: Speci men Type: BLOOD SPECIMENOrdering Facility: [facility] Address: [address] [place] [address] Performed By: #### 5 7021-8 ####[facility] LABORATORYCLIA [id number] [address] [place] Platelet mean volume (Bld) [Entitic vol] 11.5 fL Normal 9.0-12.7 [facility] Comment on above: Order Comment: Speci men Type: BLOOD SPECIMENOrdering Facility: [facility] Address: [address] [place] [address] Performed By: #### 5 7021-8 ####[facility] LABORATORYCLIA [id number] [address] [place] Platelets (Bld) [#/Vol] 251 10*3/uL Normal 150-400 [facility] Comment on above: Order Comment: Speci men Type: BLOOD SPECIMENOrdering Facility: [facility] Address: [address] [place] [address] Performed By: #### 5 7021-8 ####[facility] LABORATORYCLIA [id number] [address] RBC (Bld) [#/Vol] 2.21 10*6/uL Low 4.20-6.00 [facility] Comment on above: Order Comment: Speci men Type: BLOOD SPECIMENOrdering Facility: [facility] Address: [address] [place] [address] Performed By: #### 5 7021-8 ####[facility]ORATORYCLIA [id number] [address] WBC (Bld) [#/Vol] 6.01 10*3/uL Normal 3.70-11.00 [facility] Comment on above: Order Comment: Speci men Type: BLOOD SPECIMENOrdering Facility: [facility] Address: [address] [place] [address] Performed By: #### 5 7021-8 ####[facility]ORATORYCLIA [id number] [address] Basophils (Bld) [#/Vol] 0.05 10*3/uL <0.11 k/uL [facility] Basophils/100 WBC (Bld) 0.8 % [facility] Differential cell count method Nom (Bld) Auto [facility] Eosinophils (Bld) [#/Vol] 0.10 10*3/uL <0.46 k/uL [facility] Eosinophils/100 WBC (Bld) 1.7 % [facility] Erythrocyte distribution width (RBC) [Ratio] 18.8 % High 11.5 - 15.0 % [facility] Hematocrit (Bld) [Volume fraction] 25.0 % Low 39.0 - 51.0 % [facility] Hemoglobin (Bld) [Mass/Vol] 8.4 g/dL Low 13.0 - 17.0 g/dL [facility] Immature granulocytes (Bld) [#/Vol] 0.04 10*3/uL <0.10 k/uL [facility] Immature granulocytes/100 WBC (Bld) 0.7 % [facility] Lymphocytes (Bld) [#/Vol] 1.06 10*3/uL 1.00 - 4.00 k/uL [facility] Lymphocytes/100 WBC (Bld) 17.6 % [facility] MCH (RBC) [Entitic mass] 38.0 pg High 26.0 - 34.0 pg [facility] MCHC (RBC) [Mass/Vol] 33.6 g/dL 30.5 - 36.0 g/dL [facility] MCV (RBC) [Entitic vol] 113.1 fL High 80.0 - 100.0 fL [facility] Monocytes (Bld) [#/Vol] 0.67 10*3/uL <0.87 k/uL [facility] Monocytes/100 WBC (Bld) 11.1 % [facility] Neutrophils (Bld) [#/Vol] 4.09 10*3/uL 1.45 - 7.50 k/uL [facility] Neutrophils/100 WBC (Bld) 68.1 % [facility] Nucleated RBC (Bld) [#/Vol] 0.05 10*3/uL High <0.01 k/uL [facility] Nucleated RBC/100 WBC (Bld) [Ratio] 0.8 /100 WBC [facility] Platelet mean volume (Bld) [Entitic vol] 11.5 fL 9.0 - 12.7 fL [facility] Platelets (Bld) [#/Vol] 251 10*3/uL 150 - 400 k/uL [facility] RBC (Bld) [#/Vol] 2.21 10*6/uL Low 4.20 - 6.00 m/uL [facility] WBC (Bld) [#/Vol] 6.01 10*3/uL 3.70 - 11.00 k/uL [facility] CHROM ANAL W RFX MDS FISHon 10-24-2022 CHROM ANLY W/RFLX MDS FISH Normal [facility] Comment on above: Order Comment: Speci men Type: BONE MARROW SPECIMENOrdering Facility: [facility] Address: [address] [place] [id number] Result Comment: Woodrow hurst Accession Number: [id number]: Randa RowellPathologist: MarySurgical Pathology No: [id number] diagnosis: Macrocytic anemiaSpecimen Type: Bone marrowReceived Date: 10/24/2022Number of cells counted: 20Number of cells analyzed: 20Number of cells karyotyped: 20Banding resolution: 400Banding method: G-bandingDIAGNOSIS: 46,XY[20]INTERPRETATION: Normal, male karyotypeCOMMENT: Ten metaphase cells were analyzed from the culturesupplemented with GM-CSF and ten metaphase cells were analyzed fromthe 24 hour unstimulated culture. Twenty cells analyzed showed a46,XY karyotype. There was no significant numerical chromosomeabnormality and no structural change detected within the limits ofresolution. There is single nonclonal rearrangement attributed totechnique.Clinical and pathologic correlation is recommended.As reviewed by Gypsy Johns MD, PhDPerformed by [facility] HospitalPathology and Laboratory Medicine InstituteDivision of Molecular PathologyCytogenetics Lab, [id number] [place], [place] [address]Phone: Toll free: Performed By: #### C HRMDS ####[facility] LIMSCLIA [id number] [address] [place] BONE MARROW BX AND ASPIRA TIONon 10-24-2022 CT BONE MARROW BX AND ASPIRATION Normal [facility] DNA EXTRACTION BONE MARROW ( BUFFY COAT)on 10-24-2022 DNA EXTRACTION BONE MARROW (BUFFY COAT) Normal [facility] Comment on above: Order Comment: Speci men Type: BONE MARROW SPECIMENOrdering Facility: [facility] Address: [address] [place] [address] Result Comment: This specimen was received and successfully processed for future DNA purification should molecular testing be needed. Specimens will be available for 3 years from date of collection.To order testing on this specimen for [facility] patients, please place an [facility] order for DNA and RNA Clinical Testing ([id number]). To order testing for patients outside of the [facility] system, please request DNA and RNA for Clinical Testing, order code [id number].If additional paperwork is required for testing, please send completed forms via secure email to . Performed By: #### N UCBUF ####[facility] LIMSCLIA [id number] [address] [place] FLOW CYTOMETRY BONE MARROW H OLD (BMHOLD)on 10-24-2022 FLOW CYTOMETRY ORDER STATUS See Results in chart under F case ID Normal [facility] Comment on above: Order Comment: Specjason gilbert Type: BONE MARROW SPECIMENOrdering Facility: [facility] Address: [address] [place] [address] Performed By: #### B MHOLD ####[facility] LABCLIA [id number] [address] [place] FLT3 ITD HN BONE MARROWon [facility]ITY SIGNOUT PATHOLOGIST [id number] Normal [facility] Comment on above: Order Comment: Elfego gilbert Type: BONE MARROW SPECIMENOrdering Facility: [facility] Address: [address] [place] [address] Performed By: #### F 3IM, MYMNGS ####[facility] LIMSCLIA [id number] [address] [place] FLT3 ITD HN PANEL BONE MARROW Normal [facility] Comment on above: Order Comment: Elfego gilbert Type: BONE MARROW SPECIMENOrdering Facility: [facility] Address: [address] [place] [address] Result Comment: FLT3 Internal Tandem Duplication (ITD) Mutation TestingLaboratory Accession Number: [id number] Internal Tandem Duplication (ITD) mutation: Not DetectedComment:FLT3/ITD is found in approx. 20-30% of adult patients and in approx.5-12% of infants and children with acute myeloid leukemia (AML).FLT3/ITD are most often associated with a normal karyotype, t(15;17),and t(6;9). FLT3/ITD is associated with leukocytosis and a poorprognosis in both children and adults. In cytogenetically normal AML,FLT3/ITD has been associated with a poor prognosis. FLT3 mutationstatus has been reported to change between diagnosis and relapse; thismay relate to the instability of FLT3 mutations.Methodology:DNA is isolated from the specimen provided. Regions of the HGI5dscdyswv kinase receptor gene are subjected to the polymerase chainreaction (PCR) using fluorescently labeled forward PCR primers. PCRproducts are analyzed by capillary gel electrophoresis for in-framelength mutations (ITD mutations). This assay can detect ITD mutantalleles which represent approx. 5-10% of the total alleles. The ITDratio is calculated as the area under the curve of the ITD signal tothe area under the curve of the wild type signal.Limitations:Due to the diversity of potential ITD mutations, standardizedcalibration material is not available and calculated ITD peak ratiosmay therefore not be directly comparable across laboratories. As PCRefficiency varies with the size of the insertion mutation, calculatedpeak ratios may not necessarily correlate with percentage of mutantalleles. ITD ratio information should be interpreted with caution, inconjunction with other cytogenetic and molecular findings to assessprognosis within myeloid neoplasms.References:1) Agustin MP, Janet P, Laurel E, et al. Mutational landscapeof AML with normal cytogenetics: biological and clinical implications.Blood Rev.2013;27:13-22.2) Alphonse CARLOS, Neema M, rAthur ME, et al. Prognostic relevance ofintegrated genetic profiling in acute myeloid leukemia. N Engl J Med.2012 Jan 28;366 (12):1079-89.3) Harinder H, Aden E, Davy Nuñez, et al. Diagnosis and mangement ofAML in adults: 2017 ELN recommendations from an international expertpanel. Blood 129,424-448 (2017).Disclaimer:This test was developed and its performance characteristics determinedby [facility]'s [facility] Pathology and LaboratoryMedicine Emmalena ([facility] CORPORATIONPLDE). It has not been cleared or approved bythe FDA. -PLDE is regulated under CLIA as certified to perform high-complexity testing. This test is used for clinical purposes. It shouldnot be regarded as investigational or for research.[place] [address]. CLIA Number: [id number] reviewed by Tahmina Duong, PhD, [facility] Performed By: #### F KARELY PATRICK ####[facility]ORTSM[facility]THA [id number] [address] HISTORY PHYSICALon HISTORY PHYSICAL Normal [facility] IMAGING GUIDED BONE MARROW B IOPSY AND ASPIRATION (SHAUN)([place] AV,[facility])on 10-24-2022 [facility] MYELOID NGS PANEL BONE MARRO Won 10-24-2022 MYELOID NGS PANEL BONE MARROW Normal [facility] Comment on above: Order Comment: Speci men Type: BONE MARROW SPECIMENOrdering Facility: [facility] Address: [address] [facility] [id number] Result Comment: Myel oid NGS Panel Bone MarrowLaboratory Accession Number: [id number]:Please see linked document and/or separate report for full result whenavailable.As reviewed by Laron Jeong MD Performed By: #### F 3IM, MYMNGS ####[facility] LIMSCLIA [id number] [address] PT panel Coag (PPP)on 2021 INR Coag (PPP) [Relative time] 1.3 {INR} Normal 0.9-1.3 [facility] Comment on above: Order Comment: Speci men Type: BLOOD SPECIMENOrdering Facility: [facility] Address: [place] [address] Result Comment: Tanna min K Antagonist (VKA) Therapeutic Range: INR 2 to 3 (Target INR of 2.5)Note: For patients treated with VKA drugs, such as warfarin, the [place] [employer] 2012 Guideline recommends a therapeutic INR range of 2 to 3 (target INR of 2.5). This recommendation includes high-risk patients with antiphospholipid syndrome with previous arterial or venous thromboembolism, current-generation mechanical or bioprosthetic aortic heart valve replacement.Note: Patients with mechanical aortic valve replacement and additional risk factors for thromboembolic events (atrial fibrillation, previous thromboembolism, LV dysfunction, hypercoagulable conditions) or an older generation mechanical AVR (i.e., ball in-Cage) or any mechanical MVR should have a INR therapeutic range of 2.5 to 3.5 (target INR of 3).Alo GH, et al. Chest 2012, 141:7S-47SNishimura RA, et al. JACC 2017, 70: 252-289 Performed By: #### 3 4528-0 ####[facility] LABORATORYCLIA [id number] [place] [address] [facility] [place] PT Coag (PPP) [Time] 13.5 s High 9.7-13.0 [facility] Comment on above: Order Comment: Speci men Type: BLOOD SPECIMENOrdering Facility: [facility] Address: [facility] [place] [address] Performed By: #### 3 4528-0 ####[facility] LABORATORYCLIA [id number] [place] [address] [facility] INR Coag (PPP) [Relative time] 1.3 {INR} 0.9 - 1.3 [facility] PT Coag (PPP) [Time] 13.5 s High 9.7 - 1 3.0 sec [facility] CNOVon 10-16-2022 CNOV Normal [facility] CNOVSPon 10-09-2022 CNOVSP Normal [facility] CNPNon 10-09-2022 CNPN Normal [facility] CNPNon 09-19-2022 CNPN [facility] HISTORY PHYSICALon HISTORY PHYSICAL HNO ID: [id number] Author: Baljinder Trevizo MD Service: Pain Management Author Type: Physician Type: HANDP Filed: 07/29/2022 11:24 AM Note Text: HISTORY AND PHYSICAL EXAMINATION PATIENT NAME: Srini Luis DATE of SERVICE: 07/29/2022 Srini Luis is here for the pain mangement procedure. The patients presents with persistent pain complaints. Srini Luis denies any interval changes or new pain complaints or focal neurologic deficits. 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 2017 when he's been off medication Nocturnal hypoxemia On oxygen at night Osteoarthritis, generalized PAF (paroxysmal atrial fibrillation) (HCC) 2020 Post CABG atrial fibrillation PVC's (premature ventricular contractions) RBBB Status post ligation of left atrial appendage 07/2021 At time of CABG PAST SURGICAL HISTORY Procedure Laterality Date ANKLE RIGHT OP SURGERY Right 12/18/2020 Dr Arreola [facility] ARTHROPLASTY TOTAL SHOULDER 11/09/2008 right ARTHROSCOPY OF JOINT UNLISTED Elbow right CABG (4) VEIN GRAFTS AND ARTERIAL GRAFT(S) 07/21/2021 In [facility] COLONOSCOPY FLX DX W/COLLJ SPEC WHEN PFRMD 09/01/2005 Colonoscopy COLONOSCOPY FLX DX W/COLLJ SPEC WHEN PFRMD 09/27/2015 Colonoscopy PAST SURGICAL HISTORY OF 07/21/2021 Coronary Artery Bypass Graft x 4 REMOVAL OF TONSILS,<12 Y/O Social History Tobacco Use Smoking status: Former Types: Cigarettes Quit date: 08/11/1989 Years since quittin.9 Smokeless tobacco: Never Tobacco comments: quit 18-19 years ago Vaping Use Vaping Use: Never used Substance Use Topics Alcohol use: Yes Alcohol/week: 12.5 standard drinks Types: 2 Glasses of Wine (5oz), 2 Cans of Beer (12oz), 1 Mixed Drinks per week Comment: 1-2 beers per week Drug use: No FAMILY HISTORY Problem Relation Age of Onset Heart Mother Heart Father CHF Colon Cancer No Family History Prostate Cancer No Family History Blood Clots No Family History NO PE OR DVT ALLERGIES Allergen Reactions Simvastatin Other: See Comments Elevated CK Current Facility-Administered Medications Medication Dose Route Frequency NaCl 0.9% iv infusion 30 mL/hr INTRAVENOUS CONTINUOUS Physical Exam: Performed in conjunction with observation. The patient is alert and oriented x3. The patient is in no acute distress. Neck: Supple. The range of motion is intact. Lungs: clear CVR: RRR. Extremities: no reported edema or erythema. Examination indicates no changes Impression: Lumbar spondylosis Plan: The informed consent has been obtained. The plan is to proceed with the procedure as planned. SIGNATURE: Baljinder Trevizo MD DATE: July 29, 2022 TIME: 11:24 AM Normal [facility] NURSING PROGon 07-29-2022 NURSING PROG HNO ID: [id number] Author: Alice Armstrong RN Service: Nursing Author Type: Registered Nurse Type: Nursing Progress Note Filed: 07/29/2022 12:35 PM Note Text: Other: pt slightly unsteady when initially standing up but them able to take steps, feels awake enough to go home at this time., friend Jason made aware to go home and not stop for food at restaurant. Safest to have pt go home and rest. Friend verbalizes unentertaining of this. [facility] OPERATIVE NOon 07-29-2022 OPERATIVE NO HNO ID: [id number] Author: Baljinder Trevizo MD Service: Pain Management Author Type: Physician Type: Operative Report Filed: 08/01/2022 12:26 PM Note Text: PATIENT NAME: Srini Luis SERVICE DATE: PROCEDURE NOTE PREOPERATIVE DIAGNOSIS(ES): Lumbar degenerative disc disease. Lumbar spondylosis. Lumbar facet arthropathy POSTOPERATIVE DIAGNOSIS(ES): Same PROCEDURE: Bilateral L4-5, L5-S1 facet Lumbar Facet Medial Branch Nerve Blockunder fluoroscopy. ANESTHESIA: Conscious sedation with Versed 2 mg IV INDICATIONS: Srini Luis presents for facet joint injection. The pain is persistent. Srini Luis denies any new neurological or pain complaints. The patient has spondylosis at lower lumbar segments with predominant changes at L4-5 and L5-S1 levels. As discussed in the office and confirmed today, the plan is to proceed with lumbar facet joint injection. The risks and benefits of the procedure were discussed. Specifically, the risks of bleeding, infection, inadvertent dural puncture, spinal heaches, vasovagal reaction, epidural hematoma, partial or permanent nerve injury were covered. The potential side effects of medications used in procedures including increase in lumbar pain, headaches, facial redness or warmth (flushing), anxiety or mood swings, sleeplessness, fever, high blood sugar, brief reduction in immunity were discussed. The patient expressed understanding of potential risks and wishes to proceed with the procedure. OPERATIVE PROCEDURE: The patient was brought to the OR. The patient was placed in the prone position with pressure points protected. Continuous hemodynamic monitoring was initiated including blood pressure, EKG, and pulse oximetry. Supplemental oxygen per nasal canula was started. The intravenous medication was administered incrementally to provide conscious sedation and to allow the patient to remain comfortable and conversant throughout the procedure. The area of the lumbar spine was prepped povidone-iodine three times and draped into a sterile field. Fluoroscopy was rotated to right oblique projection to identify the location of the L4-5 and L5-S1 medial branch nerves at the junctions of the superior articular process and the transverse processes of L4, L5, and the sacral ala respectively. Skin anesthesia was achieved using 10 cc of marcaine 0.25% over the injection sites. A 22 gauge, 3.5 spinal needle was slowly inserted at each level using AP, lateral and oblique fluoroscopic imaging. Negative aspiration for blood or CSF was confirmed. The fluoroscopy was then rotated to the contralateral side and the needle placement sites were identified. Same technique was used to place the needles on the contralateral side. There were total of 6 needle placements. A total of 6ml of a medication mixture of 5mg of Kenalog per 1ml of Marcaine 0.25% was injected. A total of 6 sites were injected in equal and divided doses. The needles were removed and bleeding was nil. A sterile dressing was applied. The patient tolerated the procedure well. The patient was taken to the recovery room in stable condition. EBL: nil Start time: 11:49 AM End time: 11:58 AM I was present the entire time and personally performed the procedure. SIGNATURE: Baljinder Trevizo MD DATE: August 01, 2022 TIME: 12:26 PM [facility] XR FLUOROSCOPYon 07-29-2022 XR FLUOROSCOPY * * *Final Report* * * DATE OF EXAM: Jul 29 2022 12:00PM [facility] 5513 - XR FLUOROSCOPY / PROCEDURE REASON: pain * * * * Physician Interpretation * * * * TECHNIQUE: XR FLUOROSCOPY COMPARISON: No prior study for comparison. TECHNIQUE: 5 limited fluoroscopic images of the lumbar spine CLINICAL INDICATION: pain Fluoroscopic Radiation Summary: Plane A, Air Kerma: 11.0 mGy Dose Area Product (DAP): 1511.3 mGy*cm^2 Fluoro time: 0:24 min:sec IMAGE NUMBER: 5 RESULT: [place] directed at the the lower lumbar spine and sacrum. IMPRESSION: 1. As above. Auto Carrier Driver: BERNARDA Transcribe Date/Time: Jul 29 2022 12:07P Dictated by : JONATHON FUNG MD This examination was interpreted and the report reviewed and electronically signed by: JONATHON FUNG MD on Jul 29 2022 12:08PM EST [id number] Normal [facility] Basic metabolic 2000 panelon 07-24-2022 Anion gap [Moles/Vol] 11 mmol/L Normal 9-18 [facility] Comment on above: Order Comment: Speci men Type: BLOOD SPECIMENOrdering Facility: [facility] Address: [address] [place] [address] Performed By: #### 2 4321-2 ####[facility] LABORATORYCLIA [id number] [place] [address] [place] Calcium [Mass/Vol] 9.0 mg/dL Normal 8.5-10.2 [facility] Comment on above: Order Comment: Speci men Type: BLOOD SPECIMENOrdering Facility: [facility] Address: [address] [place] [address] Performed By: #### 2 4321-2 ####[facility] LABORATORYCLIA [id number] [place] [address] [place] Chloride [Moles/Vol] 100 mmol/L Normal 97-105 [facility] Comment on above: Order Comment: Speci men Type: BLOOD SPECIMENOrdering Facility: [facility] Address: [address] [place] [address] Performed By: #### 2 4321-2 ####[facility] LABORATORYCLIA [id number] [place] [address] [place] CO2 [Moles/Vol] 29 mmol/L Normal 22-30 [facility] Comment on above: Order Comment: Speci men Type: BLOOD SPECIMENOrdering Facility: [facility] Address: [address] [place] [address] Performed By: #### 2 4321-2 ####[facility]ORATORYCLIA [id number] [place] [address] [place] Creatinine [Mass/Vol] 1.18 mg/dL Normal 0.73-1.22 [facility] Comment on above: Order Comment: Speci men Type: BLOOD SPECIMENOrdering Facility: [facility] Address: [address] [place] [address] Performed By: #### 2 4321-2 ####[facility] HE[facility] SERVICESCLIA [id number] [address] ESTIMATED GLOMERULAR FILTRATION RATE 60 mL/min/1.73m??? Normal >=60 [facility] Comment on above: Order Comment: Elfego vladimir Type: BLOOD SPECIMENOrdering Facility: [facility] Address: [address] [place] [address] Result Comment: Concepción mated Glomerular Filtration Rate (eGFR) is calculated using the 2020 CKD-EPI creatinine equation. This equation utilizes serum creatinine, sex, and age as parameters. The creatinine assay has traceable calibration to isotope dilution-mass spectrometry. Refer to KDIGO guidelines for clinical interpretation. In patients with unstable renal function, e.g. those with acute kidney injury, the eGFR may not accurately reflect actual GFR. Performed By: #### 2 4321-2 ####[facility]PITALIA [id number] [place] [address] [place] Glucose [Mass/Vol] 104 mg/dL High 74-99 [facility] Comment on above: Order Comment: Elfego gilbert Type: BLOOD SPECIMENOrdering Facility: [facility] Address: [address] [place] [address] Result Comment: The [place] Diabetes Association (ADA) provides guidance for cutoff values for fasting glucose and random glucose. The ADA defines fasting as no caloric intake for at least 8 hours. Fasting plasma glucose results between 100 to 125 mg/dL indicate increased risk for diabetes (prediabetes).Fasting plasma glucose results greater than or equal to 126 mg/dL meet the criteria for diagnosis of diabetes. In the absence of unequivocal hyperglycemia, results should be confirmed by repeat testing. In a patient with classic symptoms of hyperglycemia or hyperglycemic crisis, random plasma glucose results greater than or equal to 200 mg/dL meet the criteria for diagnosis of diabetes.Reference: Standards of Medical Care in Diabetes 2016, [place] [employer] Association. Diabetes Care. 2016.39(Suppl 1). Performed By: #### 2 4321-2 ####[facility]ATORYCLIA [id number] [place] [address] [place] Potassium [Moles/Vol] 4.3 mmol/L Normal 3.7-5.1 [facility] Comment on above: Order Comment: Speci men Type: BLOOD SPECIMENOrdering Facility: [facility] Address: [address] [place] [address] Performed By: #### 2 4321-2 ####[facility]ATORYCLIA [id number] [place] [address] [place] Sodium [Moles/Vol] 140 mmol/L Normal 136-144 [facility] Comment on above: Order Comment: Speci men Type: BLOOD SPECIMENOrdering Facility: [facility] Address: [address] [place] [address] Performed By: #### 2 4321-2 ####[facility]ATORYCLIA [id number] [place] [address] [place] Urea nitrogen [Mass/Vol] 40 mg/dL High 9-24 [facility] Comment on above: Order Comment: Speci men Type: BLOOD SPECIMENOrdering Facility: [facility] Address: [address] [place] [address] Performed By: #### 2 4321-2 ####[facility]ORATORYCLIA [id number] [place] [address] [place] CNOVon 07-17-2022 CNOV Normal [facility] CNPNon 07-10-2022 CNPN Normal [facility] Basic metabolic 2000 panelon 07-09-2022 Anion gap [Moles/Vol] 7 mmol/L Low 9-18 [facility] Comment on above: Order Comment: Speci men Type: BLOOD SPECIMENOrdering Facility: [facility] Address: [address] [place] [address] Performed By: #### 2 4321-2 ####[facility]ATORYCLIA [id number] [place] [address] [place] Calcium [Mass/Vol] 9.1 mg/dL Normal 8.5-10.2 [facility] Comment on above: Order Comment: Speci men Type: BLOOD SPECIMENOrdering Facility: [facility] Address: [address] [place] [address] Performed By: #### 2 4321-2 ####[facility]ATORYCLIA [id number] [place] [address] [place] Chloride [Moles/Vol] 97 mmol/L Normal 97-105 [facility] Comment on above: Order Comment: Speci men Type: BLOOD SPECIMENOrdering Facility: [facility] Address: [address] [place] [address] Performed By: #### 2 4321-2 ####[facility]ATORYCLIA [id number] [address] [place] CO2 [Moles/Vol] 32 mmol/L High 22-30 [facility] Comment on above: Order Comment: Speci men Type: BLOOD SPECIMENOrdering Facility: [facility] Address: [address] [place] [address] Performed By: #### 2 4321-2 ####[facility]ATORYCLIA [id number] [address] [place] Creatinine [Mass/Vol] 1.04 mg/dL Normal 0.73-1.22 [facility] Comment on above: Order Comment: Speci men Type: BLOOD SPECIMENOrdering Facility: [facility] Address: [address] [place] [address] Performed By: #### 2 4321-2 ####[facility]ORYCLIA [id number] [address] [place] ESTIMATED GLOMERULAR FILTRATION RATE 70 mL/min/1.73m??? Normal >=60 [facility] Comment on above: Order Comment: Speci men Type: BLOOD SPECIMENOrdering Facility: [facility] Address: [address] [place] [address] Result Comment: Concepción mated Glomerular Filtration Rate (eGFR) is calculated using the 2020 CKD-EPI creatinine equation. This equation utilizes serum creatinine, sex, and age as parameters. The creatinine assay has traceable calibration to isotope dilution-mass spectrometry. Refer to KDIGO guidelines for clinical interpretation. In patients with unstable renal function, e.g. those with acute kidney injury, the eGFR may not accurately reflect actual GFR. Performed By: #### 2 4321-2 ####[facility]ATORYCLIA [id number] [place] [address] [place] Glucose [Mass/Vol] 96 mg/dL Normal 74-99 [facility] Comment on above: Order Comment: Speci men Type: BLOOD SPECIMENOrdering Facility: [facility] Address: [address] [place], [place] [address] Result Comment: The [place] Diabetes Association (ADA) provides guidance for cutoff values for fasting glucose and random glucose. The ADA defines fasting as no caloric intake for at least 8 hours. Fasting plasma glucose results between 100 to 125 mg/dL indicate increased risk for diabetes (prediabetes).Fasting plasma glucose results greater than or equal to 126 mg/dL meet the criteria for diagnosis of diabetes. In the absence of unequivocal hyperglycemia, results should be confirmed by repeat testing. In a patient with classic symptoms of hyperglycemia or hyperglycemic crisis, random plasma glucose results greater than or equal to 200 mg/dL meet the criteria for diagnosis of diabetes.Reference: Standards of Medical Care in Diabetes 2016, [place] Diabetes Association. Diabetes Care. 2016.39(Suppl 1). Performed By: #### 2 4321-2 ####[facility]ATORYCLIA [id number] [place] [address] [place] Potassium [Moles/Vol] 4.4 mmol/L Normal 3.7-5.1 [facility] Comment on above: Order Comment: Speci men Type: BLOOD SPECIMENOrdering Facility: [facility] Address: [address] [place] [address] Performed By: #### 2 4321-2 ####[facility]ORATORYCLIA [id number] [place] [id number] [place] Sodium [Moles/Vol] 136 mmol/L Normal 136-144 [facility] Comment on above: Order Comment: Speci men Type: BLOOD SPECIMENOrdering Facility: [facility] Address: [address] [place] [address] Performed By: #### 2 4321-2 ####[facility]ATORYCLIA [id number] [place] [address] [place] Urea nitrogen [Mass/Vol] 26 mg/dL High 9-24 [facility] Comment on above: Order Comment: Speci men Type: BLOOD SPECIMENOrdering Facility: [facility] Address: [address] [place] [address] Performed By: #### 2 4321-2 ####[facility]ATORYCLIA [id number] [address] [place] CASE MANAGEMon 07-09-2022 CASE MANAGEM Normal [facility] CBC W Auto Differential pane l (Bld)on 07-09-2022 Basophils (Bld) [#/Vol] 0.07 10*3/uL Normal <0.11 [facility] Comment on above: Order Comment: Speci men Type: BLOOD SPECIMENOrdering Facility: [facility] Address: [address] [place] [address] Performed By: #### 5 7021-8 ####[facility]ATORYCLIA [id number] [address] [place] Basophils/100 WBC (Bld) 1.0 % Normal [facility] Comment on above: Order Comment: Speci men Type: BLOOD SPECIMENOrdering Facility: [facility] Address: [address] [place] [address] Performed By: #### 5 7021-8 ####[facility]ATORYCLIA [id number] [address] [place] Differential cell count method Nom (Bld) Auto Normal [facility] Comment on above: Order Comment: Speci men Type: BLOOD SPECIMENOrdering Facility: [facility] Address: [address] [place] [address] Performed By: #### 5 7021-8 ####[facility]ATORYCLIA [id number] [address] [place] Eosinophils (Bld) [#/Vol] 0.13 10*3/uL Normal <0.46 [facility] Comment on above: Order Comment: Speci men Type: BLOOD SPECIMENOrdering Facility: [facility] Address: [address] [place] [address] Performed By: #### 5 7021-8 ####[facility]ATORYCLIA [id number] [address] [place] Eosinophils/100 WBC (Bld) 1.8 % Normal [facility] Comment on above: Order Comment: Speci men Type: BLOOD SPECIMENOrdering Facility: [facility] Address: [address] [place] [address] Performed By: #### 5 7021-8 ####[facility]ATORYCLIA [id number] [address] [place] Erythrocyte distribution width (RBC) [Ratio] 19.8 % High 11.5-15.0 [facility] Comment on above: Order Comment: Speci men Type: BLOOD SPECIMENOrdering Facility: [facility] Address: [address] [place] [address] Performed By: #### 5 7021-8 ####[facility]ATORYCLIA [id number] [address] [place] Hematocrit (Bld) [Volume fraction] 26.9 % Low 39.0-51.0 [facility] Comment on above: Order Comment: Speci men Type: BLOOD SPECIMENOrdering Facility: [facility] Address: [address] [place] [address] Performed By: #### 5 7021-8 ####[facility]ATORYCLIA [id number] [address] [place] Hemoglobin (Bld) [Mass/Vol] 9.1 g/dL Low 13.0-17.0 [facility] Comment on above: Order Comment: Speci men Type: BLOOD SPECIMENOrdering Facility: [facility] Address: [address] [place] [address] Performed By: #### 5 7021-8 ####[facility]ORATORYCLIA [id number] [address] IMMATURE GRAN % 0.4 % Normal [facility] Comment on above: Order Comment: Speci men Type: BLOOD SPECIMENOrdering Facility: [facility] Address: [address] [place] [address] Performed By: #### 5 7021-8 ####[facility]ORYCLIA [id number] [address] IMMATURE GRAN ABS 0.03 k/uL Normal <0.10 [facility] Comment on above: Order Comment: Speci men Type: BLOOD SPECIMENOrdering Facility: [facility] Address: [address] [place] [address] Performed By: #### 5 7021-8 ####[facility]ATORYCLIA [id number] [address] STATES OF [facility] Lymphocytes (Bld) [#/Vol] 1.31 10*3/uL Normal 1.00-4.00 [facility] Comment on above: Order Comment: Speci men Type: BLOOD SPECIMENOrdering Facility: [facility] Address: [address] [place] [address] Performed By: #### 5 7021-8 ####[facility]ORYCLIA [id number] [address] Lymphocytes/100 WBC (Bld) 18.0 % Normal [facility] Comment on above: Order Comment: Speci men Type: BLOOD SPECIMENOrdering Facility: [facility] Address: [address] [place] [address] Performed By: #### 5 7021-8 ####[facility]ORYCLIA [id number] [address] MCH (RBC) [Entitic mass] 37.4 pg High 26.0-34.0 [facility] Comment on above: Order Comment: Speci men Type: BLOOD SPECIMENOrdering Facility: [facility] Address: [address] [place] [address] Performed By: #### 5 7021-8 ####[facility]ORYCLIA [id number] [address] [facility] MCHC (RBC) [Mass/Vol] 33.8 g/dL Normal 30.5-36.0 [facility] Comment on above: Order Comment: Speci men Type: BLOOD SPECIMENOrdering Facility: [facility] Address: [address] [place] [address] Performed By: #### 5 7021-8 ####[facility]ORYCLIA [id number] [address] [place] MCV (RBC) [Entitic vol] 110.7 fL High 80.0-100.0 [facility] Comment on above: Order Comment: Speci men Type: BLOOD SPECIMENOrdering Facility: [facility] Address: [address] [place] [address] Performed By: #### 5 7021-8 ####[facility]ATORYCLIA [id number] [address] [place] Monocytes (Bld) [#/Vol] 0.98 10*3/uL High <0.87 [facility] Comment on above: Order Comment: Speci men Type: BLOOD SPECIMENOrdering Facility: [facility] Address: [address] [place] [address] Performed By: #### 5 7021-8 ####[facility]ORYCLIA [id number] [address] Monocytes/100 WBC (Bld) 13.5 % Normal [facility] Comment on above: Order Comment: Speci men Type: BLOOD SPECIMENOrdering Facility: [facility] Address: [address] [place] [address] Performed By: #### 5 7021-8 ####[facility]ORYCLIA [id number] [address] [place] Neutrophils (Bld) [#/Vol] 4.74 10*3/uL Normal 1.45-7.50 [facility] Comment on above: Order Comment: Speci men Type: BLOOD SPECIMENOrdering Facility: [facility] Address: [address] [place] [address] Performed By: #### 5 7021-8 ####[facility]ORYCLIA [id number] [address] Neutrophils/100 WBC (Bld) 65.3 % Normal [facility] Comment on above: Order Comment: Speci men Type: BLOOD SPECIMENOrdering Facility: [facility] Address: [address] [place] [address] Performed By: #### 5 7021-8 ####[facility]ATORYCLIA [id number] [address] [place] Nucleated RBC (Bld) [#/Vol] 0.02 10*3/uL High <0.01 [facility] Comment on above: Order Comment: Speci men Type: BLOOD SPECIMENOrdering Facility: [facility] Address: [address] [place] [address] Performed By: #### 5 7021-8 ####[facility]ORYCLIA [id number] [address] Nucleated RBC/100 WBC (Bld) [Ratio] 0.3 /100 WBC Normal [facility] Comment on above: Order Comment: Speci men Type: BLOOD SPECIMENOrdering Facility: [facility] Address: [address] [place] [address] Performed By: #### 5 7021-8 ####[facility]ATORYCLIA [id number] [address] [place] Platelet mean volume (Bld) [Entitic vol] 11.3 fL Normal 9.0-12.7 [facility] Comment on above: Order Comment: Speci men Type: BLOOD SPECIMENOrdering Facility: [facility] Address: [address] [place] [address] Performed By: #### 5 7021-8 ####[facility]ATORYCLIA [id number] [place] [address] [place] Platelets (Bld) [#/Vol] 236 10*3/uL Normal 150-400 [facility] Comment on above: Order Comment: Speci men Type: BLOOD SPECIMENOrdering Facility: [facility] Address: [address] [place] [address] Performed By: #### 5 7021-8 ####[facility]ATORYCLIA [id number] [place] [address] [place] RBC (Bld) [#/Vol] 2.43 10*6/uL Low 4.20-6.00 [facility] Comment on above: Order Comment: Speci men Type: BLOOD SPECIMENOrdering Facility: [facility] Address: [address] [place] [address] Performed By: #### 5 7021-8 ####[facility]ATORYCLIA [id number] [address] OF [facility] WBC (Bld) [#/Vol] 7.26 10*3/uL Normal 3.70-11.00 [facility] Comment on above: Order Comment: Speci men Type: BLOOD SPECIMENOrdering Facility: [facility] Address: [address] [place] [address] Performed By: #### 5 7021-8 ####[facility]ORYCLIA [id number] [address] [place] CNDSon 07-09-2022 CNDS Normal [facility] CASE MGT INIT ASSESon 2021 CASE MGT INIT ASSES Normal [facility] CONSULT PROGon 07-08-2022 CONSULT PROG Normal [facility] Magnesium SerPl-mCncon 07-08 Magnesium [Mass/Vol] 1.9 mg/dL Normal 1.7-2.3 [facility] Comment on above: Order Comment: Speci men Type: BLOOD SPECIMENOrdering Facility: [facility] Address: [address] [place] [address] Performed By: #### 1 9123-9, 08265-7 ####[facility]ATORYCLIA [id number] [address] [place] Renal function 2000 panelon 07-08-2022 Albumin [Mass/Vol] 4.0 g/dL Normal 3.9-4.9 [facility] Comment on above: Order Comment: Speci men Type: BLOOD SPECIMENOrdering Facility: [facility] Address: [address] [place] [address] Performed By: #### 1 9123-9, 95686-5 ####[facility]ORYCLIA [id number] [address] [place] Anion gap [Moles/Vol] 9 mmol/L Normal 9-18 [facility] Comment on above: Order Comment: Speci men Type: BLOOD SPECIMENOrdering Facility: [facility] Address: [address] [place] [address] Performed By: #### 1 9123-9, 56684-5 ####[facility]ORYCLIA [id number] [address] [place] Calcium [Mass/Vol] 9.2 mg/dL Normal 8.5-10.2 [facility] Comment on above: Order Comment: Speci men Type: BLOOD SPECIMENOrdering Facility: [facility] Address: [address] [place] [address] Performed By: #### 1 9123-9, 91757-7 ####[facility]ATORYCLIA [id number] [address] [place] Chloride [Moles/Vol] 94 mmol/L Low 97-105 [facility] Comment on above: Order Comment: Speci men Type: BLOOD SPECIMENOrdering Facility: [facility] Address: [address] [place] [address] Performed By: #### 1 9123-9, 23548-0 ####[facility]ORYCLIA [id number] [address] [place] CO2 [Moles/Vol] 32 mmol/L High 22-30 [facility] Comment on above: Order Comment: Speci men Type: BLOOD SPECIMENOrdering Facility: [facility] Address: [address] [place] [address] Performed By: #### 1 9123-9, 83399-9 ####[facility]ORYCLIA [id number] [address] [place] Creatinine [Mass/Vol] 1.09 mg/dL Normal 0.73-1.22 [facility] Comment on above: Order Comment: Speci men Type: BLOOD SPECIMENOrdering Facility: [facility] Address: [address] [place] [address] Performed By: #### 1 9123-9, 49974-2 ####[facility]ATORYCLIA [id number] [address] ESTIMATED GLOMERULAR FILTRATION RATE 66 mL/min/1.73m??? Normal >=60 [facility] Comment on above: Order Comment: Speci men Type: BLOOD SPECIMENOrdering Facility: [facility] Address: [address] [place] [address] Result Comment: Concepción mated Glomerular Filtration Rate (eGFR) is calculated using the 2020 CKD-EPI creatinine equation. This equation utilizes serum creatinine, sex, and age as parameters. The creatinine assay has traceable calibration to isotope dilution-mass spectrometry. Refer to KDIGO guidelines for clinical interpretation. In patients with unstable renal function, e.g. those with acute kidney injury, the eGFR may not accurately reflect actual GFR. Performed By: #### 1 9123-9, 54303-0 ####[facility]ORYCLIA [id number] [address] [place] Glucose [Mass/Vol] 103 mg/dL High 74-99 [facility] Comment on above: Order Comment: Speci vladimir Type: BLOOD SPECIMENOrdering Facility: [facility] Address: [address] [place] [address] Result Comment: The [place] Diabetes Association (ADA) provides guidance for cutoff values for fasting glucose and random glucose. The ADA defines fasting as no caloric intake for at least 8 hours. Fasting plasma glucose results between 100 to 125 mg/dL indicate increased risk for diabetes (prediabetes).Fasting plasma glucose results greater than or equal to 126 mg/dL meet the criteria for diagnosis of diabetes. In the absence of unequivocal hyperglycemia, results should be confirmed by repeat testing. In a patient with classic symptoms of hyperglycemia or hyperglycemic crisis, random plasma glucose results greater than or equal to 200 mg/dL meet the criteria for diagnosis of diabetes.Reference: Standards of Medical Care in Diabetes 2016, [place] [employer] Association. Diabetes Care. 2016.39(Suppl 1). Performed By: #### 1 9123-9, 39132-3 ####[facility]ATORYCLIA [id number] [place] [address] [place] Phosphate [Mass/Vol] 3.7 mg/dL Normal 2.7-4.8 [facility] Comment on above: Order Comment: Speci men Type: BLOOD SPECIMENOrdering Facility: [facility] Address: [address] [place] [address] Performed By: #### 1 9123-9, 42861-5 ####[facility]ATORYCLIA [id number] [place] [address] [place] Potassium [Moles/Vol] 3.9 mmol/L Normal 3.7-5.1 [facility] Comment on above: Order Comment: Speci men Type: BLOOD SPECIMENOrdering Facility: [facility] Address: [address] [place] [address] Performed By: #### 1 9123-9, 38172-4 ####[facility]ATORYCLIA [id number] [place] [address] [place] Sodium [Moles/Vol] 135 mmol/L Low 136-144 [facility] Comment on above: Order Comment: Speci men Type: BLOOD SPECIMENOrdering Facility: [facility] Address: [address] [place] [address] Performed By: #### 1 9123-9, 71052-4 ####[facility]ATORYCLIA [id number] [place] [address] [place] Urea nitrogen [Mass/Vol] 26 mg/dL High 9-24 [facility] Comment on above: Order Comment: Speci men Type: BLOOD SPECIMENOrdering Facility: [facility] Address: [address] [place] [address] Performed By: #### 1 9123-9, 15063-6 ####[facility]ATORYCLIA [id number] [place] [address] [place] CONSULT PROGon 07-07-2022 CONSULT PROG Normal [facility] Renal function 2000 panelon 07-07-2022 Albumin [Mass/Vol] 4.3 g/dL Normal 3.9-4.9 [facility] Comment on above: Order Comment: Speci men Type: BLOOD SPECIMENOrdering Facility: [facility] Address: [address] [place] [address] Performed By: #### 2 4362-6 ####[facility]ATORYCLIA [id number] [place] [address] [place] Anion gap [Moles/Vol] 11 mmol/L Normal 9-18 [facility] Comment on above: Order Comment: Speci men Type: BLOOD SPECIMENOrdering Facility: [facility] Address: [address] [place] [address] Performed By: #### 2 4362-6 ####[facility]ATORYCLIA [id number] [place] [address] [place] Calcium [Mass/Vol] 8.9 mg/dL Normal 8.5-10.2 [facility] Comment on above: Order Comment: Speci men Type: BLOOD SPECIMENOrdering Facility: [facility] Address: [address] [place] [address] Performed By: #### 2 4362-6 ####[facility]ORYCLIA [id number] [place] [address] [place] Chloride [Moles/Vol] 94 mmol/L Low 97-105 [facility] Comment on above: Order Comment: Speci men Type: BLOOD SPECIMENOrdering Facility: [facility] Address: [address] [place] [address] Performed By: #### 2 4362-6 ####[facility]ATORYCLIA [id number] [place] [address] [place] CO2 [Moles/Vol] 33 mmol/L High 22-30 [facility] Comment on above: Order Comment: Speci men Type: BLOOD SPECIMENOrdering Facility: [facility] Address: [address] [place] [address] Performed By: #### 2 4362-6 ####[facility]ORATORYCLIA [id number] [place] [address] [place] Creatinine [Mass/Vol] 1.10 mg/dL Normal 0.73-1.22 [facility] Comment on above: Order Comment: Speci men Type: BLOOD SPECIMENOrdering Facility: [facility] Address: [address] [place] [address] Performed By: #### 2 4362-6 ####[facility]ORATORYCLIA [id number] [address] [place] ESTIMATED GLOMERULAR FILTRATION RATE 65 mL/min/1.73m??? Normal >=60 [facility] Comment on above: Order Comment: Speci men Type: BLOOD SPECIMENOrdering Facility: [facility] Address: [address] [place] [address] Result Comment: Concepción mated Glomerular Filtration Rate (eGFR) is calculated using the 2020 CKD-EPI creatinine equation. This equation utilizes serum creatinine, sex, and age as parameters. The creatinine assay has traceable calibration to isotope dilution-mass spectrometry. Refer to KDIGO guidelines for clinical interpretation. In patients with unstable renal function, e.g. those with acute kidney injury, the eGFR may not accurately reflect actual GFR. Performed By: #### 2 4362-6 ####[facility]ATORYCLIA [id number] [place] [address] [place] Glucose [Mass/Vol] 110 mg/dL High 74-99 [facility] Comment on above: Order Comment: Speci men Type: BLOOD SPECIMENOrdering Facility: [facility] Address: [address] [place], [place] [address] Result Comment: The [place] Diabetes Association (ADA) provides guidance for cutoff values for fasting glucose and random glucose. The ADA defines fasting as no caloric intake for at least 8 hours. Fasting plasma glucose results between 100 to 125 mg/dL indicate increased risk for diabetes (prediabetes).Fasting plasma glucose results greater than or equal to 126 mg/dL meet the criteria for diagnosis of diabetes. In the absence of unequivocal hyperglycemia, results should be confirmed by repeat testing. In a patient with classic symptoms of hyperglycemia or hyperglycemic crisis, random plasma glucose results greater than or equal to 200 mg/dL meet the criteria for diagnosis of diabetes.Reference: Standards of Medical Care in Diabetes 2016, [place] Diabetes Association. Diabetes Care. 2016.39(Suppl 1). Performed By: #### 2 4362-6 ####[facility]ATORYCLIA [id number] [place] [address] [place] Phosphate [Mass/Vol] 4.0 mg/dL Normal 2.7-4.8 [facility] Comment on above: Order Comment: Elfego men Type: BLOOD SPECIMENOrdering Facility: [facility] Address: [address] [place] [address] Performed By: #### 2 4362-6 ####[facility]ATORYCLIA [id number] [place] [address] [place] Potassium [Moles/Vol] 4.0 mmol/L Normal 3.7-5.1 [facility] Comment on above: Order Comment: Speci men Type: BLOOD SPECIMENOrdering Facility: [facility] Address: [address] Performed By: #### 2 4362-6 ####[facility]ATORYCLIA [id number] [place] [address] [place] Sodium [Moles/Vol] 138 mmol/L Normal 136-144 [facility] Comment on above: Order Comment: Speci men Type: BLOOD SPECIMENOrdering Facility: [facility] Address: [address] [address] Performed By: #### 2 4362-6 ####[facility]ATORYCLIA [id number] [place] [address] [place] Urea nitrogen [Mass/Vol] 28 mg/dL High 9-24 [facility] Comment on above: Order Comment: Speci men Type: BLOOD SPECIMENOrdering Facility: [facility] Address: [address] [place] [address] Performed By: #### 2 4362-6 ####[facility]ATORYCLIA [id number] [place] [address] [place] US DVT LOWER BILon US DVT LOWER RALF Normal [facility] CBC W Auto Differential pane l (Bld)on 07-06-2022 Basophils (Bld) [#/Vol] 0.07 10*3/uL Normal <0.11 [facility] Comment on above: Order Comment: Speci men Type: BLOOD SPECIMENOrdering Facility: [facility] Address: [address] [place] [address] Performed By: #### 5 7021-8 ####[facility]ATORYCLIA [id number] [address] [place] Basophils/100 WBC (Bld) 0.9 % Normal [facility] Comment on above: Order Comment: Speci men Type: BLOOD SPECIMENOrdering Facility: [facility] Address: [address] [place] [address] Performed By: #### 5 7021-8 ####[facility]ATORYCLIA [id number] [address] [place] Differential cell count method Nom (Bld) Auto Normal [facility] Comment on above: Order Comment: Speci men Type: BLOOD SPECIMENOrdering Facility: [facility] Address: [address] [place] [address] Performed By: #### 5 7021-8 ####[facility]ATORYCLIA [id number] [place] [address] [place] Eosinophils (Bld) [#/Vol] 0.15 10*3/uL Normal <0.46 [facility] Comment on above: Order Comment: Speci men Type: BLOOD SPECIMENOrdering Facility: [facility] Address: [address] [place] [address] Performed By: #### 5 7021-8 ####[facility]ATORYCLIA [id number] [address] Eosinophils/100 WBC (Bld) 2.0 % Normal [facility] Comment on above: Order Comment: Speci men Type: BLOOD SPECIMENOrdering Facility: [facility] Address: [address] [place] [address] Performed By: #### 5 7021-8 ####[facility]ATORYCLIA [id number] [address] Erythrocyte distribution width (RBC) [Ratio] 20.4 % High 11.5-15.0 [facility] Comment on above: Order Comment: Speci men Type: BLOOD SPECIMENOrdering Facility: [facility] Address: [address] [place] [address] Performed By: #### 5 7021-8 ####[facility]ATORYCLIA [id number] [address] Hematocrit (Bld) [Volume fraction] 24.8 % Low 39.0-51.0 [facility] Comment on above: Order Comment: Speci men Type: BLOOD SPECIMENOrdering Facility: [facility] Address: [address] [place] [address] Performed By: #### 5 7021-8 ####[facility]ATORYCLIA [id number] [address] [place] Hemoglobin (Bld) [Mass/Vol] 8.3 g/dL Low 13.0-17.0 [facility] Comment on above: Order Comment: Speci men Type: BLOOD SPECIMENOrdering Facility: [facility] Address: [address] [place] [address] Performed By: #### 5 7021-8 ####[facility]ORATORYCLIA [id number] [address] IMMATURE GRAN % 0.5 % Normal [facility] Comment on above: Order Comment: Speci men Type: BLOOD SPECIMENOrdering Facility: [facility] Address: [address] [place] [address] Performed By: #### 5 7021-8 ####[facility]ATORYCLIA [id number] [address] IMMATURE GRAN ABS 0.04 k/uL Normal <0.10 [facility] Comment on above: Order Comment: Speci men Type: BLOOD SPECIMENOrdering Facility: [facility] Address: [address] [place] [address] Performed By: #### 5 7021-8 ####[facility]ATORYCLIA [id number] [address] Lymphocytes (Bld) [#/Vol] 1.35 10*3/uL Normal 1.00-4.00 [facility] Comment on above: Order Comment: Speci men Type: BLOOD SPECIMENOrdering Facility: [facility] Address: [address] [place] [address] Performed By: #### 5 7021-8 ####[facility]ATORYCLIA [id number] [address] Lymphocytes/100 WBC (Bld) 18.1 % Normal [facility] Comment on above: Order Comment: Speci men Type: BLOOD SPECIMENOrdering Facility: [facility] Address: [address] [place] [address] Performed By: #### 5 7021-8 ####[facility]ATORYCLIA [id number] [address] MCH (RBC) [Entitic mass] 37.2 pg High 26.0-34.0 [facility] Comment on above: Order Comment: Speci men Type: BLOOD SPECIMENOrdering Facility: [facility] Address: [address] [place] [address] Performed By: #### 5 7021-8 ####[facility]ATORYCLIA [id number] [address] [place] MCHC (RBC) [Mass/Vol] 33.5 g/dL Normal 30.5-36.0 [facility] Comment on above: Order Comment: Speci men Type: BLOOD SPECIMENOrdering Facility: [facility] Address: [address] [place] [address] Performed By: #### 5 7021-8 ####[facility]ATORYCLIA [id number] [address] [place] MCV (RBC) [Entitic vol] 111.2 fL High 80.0-100.0 [facility] Comment on above: Order Comment: Speci men Type: BLOOD SPECIMENOrdering Facility: [facility] Address: [address] [place] [address] Performed By: #### 5 7021-8 ####[facility]ATORYCLIA [id number] [address] [place] Monocytes (Bld) [#/Vol] 1.13 10*3/uL High <0.87 [facility] Comment on above: Order Comment: Speci men Type: BLOOD SPECIMENOrdering Facility: [facility] Address: [address] [place] [address] Performed By: #### 5 7021-8 ####[facility]ATORYCLIA [id number] [address] STATES OF [facility] Monocytes/100 WBC (Bld) 15.1 % Normal [facility] Comment on above: Order Comment: Speci men Type: BLOOD SPECIMENOrdering Facility: [facility] Address: [address] [place] [address] Performed By: #### 5 7021-8 ####[facility]ATORYCLIA [id number] [address] [place] Neutrophils (Bld) [#/Vol] 4.73 10*3/uL Normal 1.45-7.50 [facility] Comment on above: Order Comment: Speci men Type: BLOOD SPECIMENOrdering Facility: [facility] Address: [address] [place] [address] Performed By: #### 5 7021-8 ####[facility]ATORYCLIA [id number] [address] Neutrophils/100 WBC (Bld) 63.4 % Normal [facility] Comment on above: Order Comment: Speci men Type: BLOOD SPECIMENOrdering Facility: [facility] Address: [address] [place] [address] Performed By: #### 5 7021-8 ####[facility]ATORYCLIA [id number] [address] [place] Nucleated RBC (Bld) [#/Vol] 0.03 10*3/uL High <0.01 [facility] Comment on above: Order Comment: Speci men Type: BLOOD SPECIMENOrdering Facility: [facility] Address: [address] [place] [address] Performed By: #### 5 7021-8 ####[facility]ATORYCLIA [id number] [address] [facility] Nucleated RBC/100 WBC (Bld) [Ratio] 0.4 /100 WBC Normal [facility] Comment on above: Order Comment: Speci men Type: BLOOD SPECIMENOrdering Facility: [facility] Address: [address] [place] [address] Performed By: #### 5 7021-8 ####[facility]ATORYCLIA [id number] [address] [place] Platelet mean volume (Bld) [Entitic vol] 11.3 fL Normal 9.0-12.7 [facility] Comment on above: Order Comment: Speci men Type: BLOOD SPECIMENOrdering Facility: [facility] Address: [address] [place] [address] Performed By: #### 5 7021-8 ####[facility]ATORYCLIA [id number] [place] [address] [place] Platelets (Bld) [#/Vol] 218 10*3/uL Normal 150-400 [facility] Comment on above: Order Comment: Speci men Type: BLOOD SPECIMENOrdering Facility: [facility] Address: [address] [place] [address] Performed By: #### 5 7021-8 ####[facility]ATORYCLIA [id number] [place] [address] [place] RBC (Bld) [#/Vol] 2.23 10*6/uL Low 4.20-6.00 [facility] Comment on above: Order Comment: Speci men Type: BLOOD SPECIMENOrdering Facility: [facility] Address: [address] [place] [address] Performed By: #### 5 7021-8 ####[facility]ATORYCLIA [id number] [place] [address] [place] WBC (Bld) [#/Vol] 7.47 10*3/uL Normal 3.70-11.00 [facility] Comment on above: Order Comment: Speci men Type: BLOOD SPECIMENOrdering Facility: [facility] Address: [address] [place] [address] Performed By: #### 5 7021-8 ####[facility]ATORYCLIA [id number] [address] [place] CONSULT PROGon 07-06-2022 CONSULT PROG Normal [facility] Folate SerPl-mCncon 07-06-20 22 Folate [Mass/Vol] ng/mL Normal >4.7 [facility] Comment on above: Order Comment: Speci men Type: BLOOD SPECIMENOrdering Facility: [facility] Address: [address] [place] [address] Result Comment: A re sult of > 20 ng/mL is not necessarily indicative of a pathologic or treatable condition: it reflects a limitation of the test methodology.Assay reference range: 4.8 to 24.2 ng/mL. Suitable for detection of folate deficiency.Reference:Folate III (Folate III) [package insert V 1.0 Haitian]. [facility], [place], [place]: September 2015. Performed By: #### 2 4362-6, 56568-7, 2284-06 ####[facility]ORATORYCLIA [id number] [place], [place] [id number] [place] [address] OF [facility] Lipid 1996 panelon 2 Cholesterol [Mass/Vol] 75 mg/dL Normal <200 [facility] Comment on above: Order Comment: Speci men Type: BLOOD SPECIMENOrdering Facility: [facility] Address: [address] [place] [address] Result Comment: <200 mg/dL, Desirable 200-239 mg/dL, Borderline high>239 mg/dL, High Performed By: #### 2 4362-6, 40119-0, 2284-06 ####[facility] SERVICESCLIA [id number] [address] Cholesterol in HDL [Mass/Vol] 44 mg/dL Normal >39 [facility] Comment on above: Order Comment: Speci [facility] Type: BLOOD SPECIMENOrdering Facility: [facility] Address: [address] [place] [address] Result Comment: 40-5 9 mg/dL, Acceptable>59 mg/dL, High: Negative risk factor for coronary heart disease<40 mg/dL, Low: Positive risk factor for coronary heart disease Performed By: #### 2 4362-6, 48881-5, 2284-06 ####[facility]ATORYCLIA [id number] [address] Cholesterol in LDL [Mass/Vol] 23 mg/dL Normal <100 [facility] Comment on above: Order Comment: Speci men Type: BLOOD SPECIMENOrdering Facility: [facility] Address: [address] [address] Result Comment: <100 mg/dL, Optimal 100-129 mg/dL, Near optimal/above optimal 130-159 mg/dL, Borderline high 160-189 mg/dL, High>189 mg/dL, Very highSecondary prevention optimal LDL Cholesterol levels are recommended to be < 70 mg/dL Performed By: #### 2 4362-6, 87254-2, 8 ####[facility]ATORYCLIA [id number] [address] Cholesterol in LDL/Cholesterol in HDL [Mass ratio] 0.52 {ratio} Normal <2.54 [facility] Comment on above: Order Comment: Speci men Type: BLOOD SPECIMENOrdering Facility: [facility] Address: [address] [place] [address] Result Comment: Refe rence:1. National Cholesterol Education Program ATP III Guideline At-A-Glance Quick Desk Reference: National Heart, Lung, and Blood [place]alena. National Institutes of Health. 2001: NIH Publication No. 01-3305.2. An International Atherosclerosis Society position paper: global recommendations for the management of dyslipidemia: executive summary, Atherosclerosis. 2014: 232(2):410-413. Performed By: #### 2 4362-6, 87502-5, 8 ####[facility] SERVICESCLIA [id number] [address] Cholesterol in VLDL [Mass/Vol] 8 mg/dL Normal <30 [facility] Comment on above: Order Comment: Speci men Type: BLOOD SPECIMENOrdering Facility: [facility] Address: [address] [place] [address] Performed By: #### 2 4362-6, 69103-6, 8 ####[facility]ATORYCLIA [id number] [address] [place] Cholesterol non HDL [Mass/Vol] 31 mg/dL Normal <130 [facility] Comment on above: Order Comment: Speci men Type: BLOOD SPECIMENOrdering Facility: [facility] Address: [address] [place] [address] Result Comment: <130 mg/dL, Optimal 130-159 mg/dL, Near optimal/above optimal 160-189 mg/dL, Borderline high 190-219 mg/dL, High>219 mg/dL, Very highSecondary prevention optimal non HDL Cholesterol levels are recommended to be <100 mg/dL Performed By: #### 2 4362-6, 30401-5, 2283-8 ####[facility]ATORYCLIA [id number] [address] Cholesterol.total/Chol esterol in HDL [Mass ratio] 1.70 {ratio} Normal <5.10 [facility] Comment on above: Order Comment: Speci men Type: BLOOD SPECIMENOrdering Facility: [facility] Address: [address] [place] [address] Performed By: #### 2 4362-6, 93848-1, 8 ####[facility]ATORYCLIA [id number] [address] FASTING TIME Not indicated Normal [facility] Comment on above: Order Comment: Speci men Type: BLOOD SPECIMENOrdering Facility: [facility] Address: [address] [place] [address] Performed By: #### 2 4362-6, 38508-2, 8 ####[facility]ATORYCLIA [id number] [address] Triglyceride [Mass/Vol] 38 mg/dL Normal <150 [facility] Comment on above: Order Comment: Speci men Type: BLOOD SPECIMENOrdering Facility: [facility] Address: [address] [place] [address] Result Comment: <150 mg/dL, Normal 150-199 mg/dL, Borderline high 200-499 mg/dL, High>499 mg/dL, Very high Performed By: #### 2 4362-6, 59141-2, 8 ####[facility]ATORYCLIA [id number] [address] [place] Renal function 2000 panelon 07-06-2022 Albumin [Mass/Vol] 3.7 g/dL Low 3.9-4.9 [facility] Comment on above: Order Comment: Speci men Type: BLOOD SPECIMENOrdering Facility: [facility] Address: [address] [place] [address] Performed By: #### 2 4362-6, 72672-1, 2284-06 ####[facility]ORATORYCLIA [id number] [place] [address] [place] Anion gap [Moles/Vol] 8 mmol/L Low 9-18 [facility] Comment on above: Order Comment: Speci men Type: BLOOD SPECIMENOrdering Facility: [facility] Address: [address] [place] [address] Performed By: #### 2 4362-6, 19017-4, 2284-06 ####[facility]ATORYCLIA [id number] [place] [address] [place] Calcium [Mass/Vol] 8.9 mg/dL Normal 8.5-10.2 [facility] Comment on above: Order Comment: Speci men Type: BLOOD SPECIMENOrdering Facility: [facility] Address: [address] [place] [address] Performed By: #### 2 4362-6, 50600-9, 2284-06 ####[facility]ATORYCLIA [id number] [place] [address] [place] Chloride [Moles/Vol] 99 mmol/L Normal 97-105 [facility] Comment on above: Order Comment: Speci men Type: BLOOD SPECIMENOrdering Facility: [facility] Address: [address] [place] [address] Performed By: #### 2 4362-6, 79056-0, 2284-06 ####[facility]ATORYCLIA [id number] [place] [address] [place] CO2 [Moles/Vol] 33 mmol/L High 22-30 [facility] Comment on above: Order Comment: Speci men Type: BLOOD SPECIMENOrdering Facility: [facility] Address: [address] [address] Performed By: #### 2 4362-6, 07401-7, 2284-06 ####[facility]ATORYCLIA [id number] [address] STATES OF [facility] Creatinine [Mass/Vol] 1.11 mg/dL Normal 0.73-1.22 [facility] Comment on above: Order Comment: Elfego gilbert Type: BLOOD SPECIMENOrdering Facility: [facility] Address: [address] [place], [place] [id number] Performed By: #### 2 4362-6, 33414-4, 2284-06 ####[facility] SERVICESCLIA [id number] [address] ESTIMATED GLOMERULAR FILTRATION RATE 65 mL/min/1.73m??? Normal >=60 [facility] Comment on above: Order Comment: Elfego gilbert Type: BLOOD SPECIMENOrdering Facility: [facility] Address: [address] [place] [address] Result Comment: Concepción mated Glomerular Filtration Rate (eGFR) is calculated using the 2020 CKD-EPI creatinine equation. This equation utilizes serum creatinine, sex, and age as parameters. The creatinine assay has traceable calibration to isotope dilution-mass spectrometry. Refer to KDIGO guidelines for clinical interpretation. In patients with unstable renal function, e.g. those with acute kidney injury, the eGFR may not accurately reflect actual GFR. Performed By: #### 2 4362-6, 62768-2, 2284-06 ####[facility]ITALIA [id number] [address] STATES OF [facility] Glucose [Mass/Vol] 98 mg/dL Normal 74-99 [facility] Comment on above: Order Comment: Elfego gilbert Type: BLOOD SPECIMENOrdering Facility: [facility] Address: [address] [place] [address] Result Comment: The [place] Diabetes Association (ADA) provides guidance for cutoff values for fasting glucose and random glucose. The ADA defines fasting as no caloric intake for at least 8 hours. Fasting plasma glucose results between 100 to 125 mg/dL indicate increased risk for diabetes (prediabetes).Fasting plasma glucose results greater than or equal to 126 mg/dL meet the criteria for diagnosis of diabetes. In the absence of unequivocal hyperglycemia, results should be confirmed by repeat testing. In a patient with classic symptoms of hyperglycemia or hyperglycemic crisis, random plasma glucose results greater than or equal to 200 mg/dL meet the criteria for diagnosis of diabetes.Reference: Standards of Medical Care in Diabetes 2016, [place] Diabetes Association. Diabetes Care. 2016.39(Suppl 1). Performed By: #### 2 4362-6, 94157-3, 2284-06 ####[facility]ORATORYCLIA [id number] [place] [address] [place] Phosphate [Mass/Vol] 4.0 mg/dL Normal 2.7-4.8 [facility] Comment on above: Order Comment: Speci men Type: BLOOD SPECIMENOrdering Facility: [facility] Address: [address] [place] [address] Performed By: #### 2 4362-6, , 2284-06 ####[facility]ORATORYCLIA [id number] [place] [address] [place] Potassium [Moles/Vol] 4.0 mmol/L Normal 3.7-5.1 [facility] Comment on above: Order Comment: Speci men Type: BLOOD SPECIMENOrdering Facility: [facility] Address: [address] [address] Performed By: #### 2 4362-6, , 2284-06 ####[facility]ORATORYCLIA [id number] [place] [address] [place] Sodium [Moles/Vol] 140 mmol/L Normal 136-144 [facility] Comment on above: Order Comment: Speci men Type: BLOOD SPECIMENOrdering Facility: [facility] Address: [address] [id number] Performed By: #### 2 4362-6, , 2284-06 ####[facility]ATORYCLIA [id number] [place] [address] [place] Urea nitrogen [Mass/Vol] 28 mg/dL High 9-24 [facility] Comment on above: Order Comment: Speci men Type: BLOOD SPECIMENOrdering Facility: [facility] Address: [address] Performed By: #### 2 4362-6, 84382-7, 2284-8 ####[facility]ATORYCLIA [id number] [address] [facility] CBC W Auto Differential pane l (Bld)on 07-05-2022 Basophils (Bld) [#/Vol] 0.04 10*3/uL Normal <0.11 [facility] Comment on above: Order Comment: Speci men Type: BLOOD SPECIMENOrdering Facility: [facility] Address: [address] [address] Performed By: #### 1 4196-0, 93165-8 ####[facility]ATORYCLIA [id number] [address] [facility] Basophils/100 WBC (Bld) 0.5 % Normal [facility] Comment on above: Order Comment: Speci men Type: BLOOD SPECIMENOrdering Facility: [facility] Address: [address] [place] [address] Performed By: #### 1 4196-0, 65361-1 ####[facility]ATORYCLIA [id number] [address] Differential cell count method Nom (Bld) Auto Normal [facility] Comment on above: Order Comment: Speci men Type: BLOOD SPECIMENOrdering Facility: [facility] Address: [address] [address] Performed By: #### 1 4196-0, 67459-2 ####[facility]ATORYCLIA [id number] 08 [address] [place] Eosinophils (Bld) [#/Vol] 0.12 10*3/uL Normal <0.46 [facility] Comment on above: Order Comment: Speci men Type: BLOOD SPECIMENOrdering Facility: [facility] Address: [address] [address] Performed By: #### 1 4196-0, 60682-2 ####[facility]ATORYCLIA [id number] [address] [place] Eosinophils/100 WBC (Bld) 1.5 % Normal [facility] Comment on above: Order Comment: Speci men Type: BLOOD SPECIMENOrdering Facility: [facility] Address: [address] [place] [address] Performed By: #### 1 4196-0, 87423-0 ####[facility]ATORYCLIA [id number] [address] [place] Erythrocyte distribution width (RBC) [Ratio] 20.3 % High 11.5-15.0 [facility] Comment on above: Order Comment: Speci men Type: BLOOD SPECIMENOrdering Facility: [facility] Address: [address] [place] [address] Performed By: #### 1 4196-0, 92524-3 ####[facility]ATORYCLIA [id number] [address] [place] Hematocrit (Bld) [Volume fraction] 25.5 % Low 39.0-51.0 [facility] Comment on above: Order Comment: Speci men Type: BLOOD SPECIMENOrdering Facility: [facility] Address: [address] [place] [address] Performed By: #### 1 4196-0, 61595-1 ####[facility]ATORYCLIA [id number] [address] [place] Hemoglobin (Bld) [Mass/Vol] 8.4 g/dL Low 13.0-17.0 [facility] Comment on above: Order Comment: Speci men Type: BLOOD SPECIMENOrdering Facility: [facility] Address: [address] [place] [address] Performed By: #### 1 4196-0, 06823-0 ####[facility]ATORYCLIA [id number] [address] [place] IMMATURE GRAN % 0.4 % Normal [facility] Comment on above: Order Comment: Speci men Type: BLOOD SPECIMENOrdering Facility: [facility] Address: [address] [address] Performed By: #### 1 4196-0, 32619-2 ####[facility]ATORYCLIA [id number] [address] [facility] IMMATURE GRAN ABS 0.03 k/uL Normal <0.10 [facility] Comment on above: Order Comment: Speci men Type: BLOOD SPECIMENOrdering Facility: [facility] Address: [address] [place] [address] Performed By: #### 1 4196-0, 23996-5 ####[facility]ORATORYCLIA [id number] [address] Lymphocytes (Bld) [#/Vol] 1.10 10*3/uL Normal 1.00-4.00 [facility] Comment on above: Order Comment: Speci men Type: BLOOD SPECIMENOrdering Facility: [facility] Address: [address] [place] [address] Performed By: #### 1 4196-0, 78788-8 ####[facility]ORATORYCLIA [id number] [address] Lymphocytes/100 WBC (Bld) 13.6 % Normal [facility] Comment on above: Order Comment: Speci men Type: BLOOD SPECIMENOrdering Facility: [facility] Address: [address] [place] [address] Performed By: #### 1 4196-0, 02274-7 ####[facility]ORATORYCLIA [id number] [address] [facility] MCH (RBC) [Entitic mass] 37.2 pg High 26.0-34.0 [facility] Comment on above: Order Comment: Speci men Type: BLOOD SPECIMENOrdering Facility: [facility] Address: [address] [place] [address] Performed By: #### 1 4196-0, 44642-5 ####[facility]ATORYCLIA [id number] [address] MCHC (RBC) [Mass/Vol] 32.9 g/dL Normal 30.5-36.0 [facility] Comment on above: Order Comment: Speci men Type: BLOOD SPECIMENOrdering Facility: [facility] Address: [address] [place] [address] Performed By: #### 1 4196-0, 54118-6 ####[facility]ORATORYCLIA [id number] [place] [address] [place] MCV (RBC) [Entitic vol] 112.8 fL High 80.0-100.0 [facility] Comment on above: Order Comment: Speci men Type: BLOOD SPECIMENOrdering Facility: [facility] Address: [address] [place] [address] Performed By: #### 1 4196-0, 45866-2 ####[facility]ATORYCLIA [id number] [address] [place] Monocytes (Bld) [#/Vol] 1.12 10*3/uL High <0.87 [facility] Comment on above: Order Comment: Speci men Type: BLOOD SPECIMENOrdering Facility: [facility] Address: [address] [place] [address] Performed By: #### 1 4196-0, 65401-4 ####[facility]ATORYCLIA [id number] [address] [facility] Monocytes/100 WBC (Bld) 13.9 % Normal [facility] Comment on above: Order Comment: Speci men Type: BLOOD SPECIMENOrdering Facility: [facility] Address: [address] [place] [address] Performed By: #### 1 4196-0, 91011-4 ####[facility]ATORYCLIA [id number] [address] [place] Neutrophils (Bld) [#/Vol] 5.66 10*3/uL Normal 1.45-7.50 [facility] Comment on above: Order Comment: Speci men Type: BLOOD SPECIMENOrdering Facility: [facility] Address: [address] [address] Performed By: #### 1 4196-0, 77134-5 ####[facility]ATORYCLIA [id number] [address] Neutrophils/100 WBC (Bld) 70.1 % Normal [facility] Comment on above: Order Comment: Speci men Type: BLOOD SPECIMENOrdering Facility: [facility] Address: [address] [place] [address] Performed By: #### 1 4196-0, 70632-0 ####[facility]ATORYCLIA [id number] [address] [place] Nucleated RBC (Bld) [#/Vol] 0.03 10*3/uL High <0.01 [facility] Comment on above: Order Comment: Speci men Type: BLOOD SPECIMENOrdering Facility: [facility] Address: [address] [place] [address] Performed By: #### 1 4196-0, 60771-7 ####[facility]ATORYCLIA [id number] [address] Nucleated RBC/100 WBC (Bld) [Ratio] 0.4 /100 WBC Normal [facility] Comment on above: Order Comment: Speci men Type: BLOOD SPECIMENOrdering Facility: [facility] Address: [address] [place] [address] Performed By: #### 1 4196-0, 02999-8 ####[facility]ATORYCLIA [id number] [address] [place] Platelet mean volume (Bld) [Entitic vol] 11.5 fL Normal 9.0-12.7 [facility] Comment on above: Order Comment: Speci men Type: BLOOD SPECIMENOrdering Facility: [facility] Address: [address] [place] [address] Performed By: #### 1 4196-0, 22275-5 ####[facility]ATORYCLIA [id number] [address] [place] Platelets (Bld) [#/Vol] 236 10*3/uL Normal 150-400 [facility] Comment on above: Order Comment: Speci men Type: BLOOD SPECIMENOrdering Facility: [facility] Address: [address] [place] [address] Performed By: #### 1 4196-0, 71350-5 ####[facility]ORATORYCLIA [id number] [address] [facility] RBC (Bld) [#/Vol] 2.26 10*6/uL Low 4.20-6.00 [facility] Comment on above: Order Comment: Speci men Type: BLOOD SPECIMENOrdering Facility: [facility] Address: [address] [place] [address] Performed By: #### 1 4196-0, 72267-8 ####[facility]ATORYCLIA [id number] [address] WBC (Bld) [#/Vol] 8.07 10*3/uL Normal 3.70-11.00 [facility] Comment on above: Order Comment: Speci men Type: BLOOD SPECIMENOrdering Facility: [facility] Address: [address] [place] [address] Performed By: #### 1 4196-0, 15862-2 ####[facility]ATORYCLIA [id number] [address] [place] CONSULTon 07-05-2022 CONSULT Normal [facility] Comprehensive metabolic 2000 panelon 07-05-2022 Albumin [Mass/Vol] 3.7 g/dL Low 3.9-4.9 [facility] Comment on above: Order Comment: Speci men Type: BLOOD SPECIMENOrdering Facility: [facility] Address: [address] [place] [address] Performed By: #### 2 4323-8, 46984-2 ####[facility]ATORYCLIA [id number] [address] [facility] ALP [Catalytic activity/Vol] 83 U/L Normal 38-113 [facility] Comment on above: Order Comment: Speci men Type: BLOOD SPECIMENOrdering Facility: [facility] Address: [address] [place] [address] Performed By: #### 2 4328, ####[facility]ATORYCLIA [id number] [address] [place] ALT With P-5'-P [Catalytic activity/Vol] 21 U/L Normal 10-54 [facility] Comment on above: Order Comment: Speci men Type: BLOOD SPECIMENOrdering Facility: [facility] Address: [address] [place] [address] Performed By: #### 2 8, ####[facility]ATORYCLIA [id number] [address] Anion gap [Moles/Vol] 8 mmol/L Low 9-18 [facility] Comment on above: Order Comment: Speci men Type: BLOOD SPECIMENOrdering Facility: [facility] Address: [address] [place] [address] Performed By: #### 2 4323-06, ####[facility]ATORYCLIA [id number] [address] [place] AST With P-5'-P [Catalytic activity/Vol] 24 U/L Normal 14-40 [facility] Comment on above: Order Comment: Speci men Type: BLOOD SPECIMENOrdering Facility: [facility] Address: [address] [place] [address] Performed By: #### 2 8, ####[facility]ATORYCLIA [id number] [address] [place] Bilirubin [Mass/Vol] 1.4 mg/dL High 0.2-1.3 [facility] Comment on above: Order Comment: Speci men Type: BLOOD SPECIMENOrdering Facility: [facility] Address: [address] [address] Performed By: #### 2 8, ####[facility]ORATORYCLIA [id number] [place] [address] [place] Calcium [Mass/Vol] 8.5 mg/dL Normal 8.5-10.2 [facility] Comment on above: Order Comment: Speci men Type: BLOOD SPECIMENOrdering Facility: [facility] Address: [address] [place] [address] Performed By: #### 2 4323-06, ####[facility] LABORATORYCLIA [id number] [place] [address] [place] Chloride [Moles/Vol] 101 mmol/L Normal 97-105 [facility] Comment on above: Order Comment: Speci men Type: BLOOD SPECIMENOrdering Facility: [facility] Address: [address] [place] [address] Performed By: #### 2 4323-06, ####[facility]ATORYCLIA [id number] [place] [address] [place] CO2 [Moles/Vol] 31 mmol/L High 22-30 [facility] Comment on above: Order Comment: Speci men Type: BLOOD SPECIMENOrdering Facility: [facility] Address: [address] [place] [address] Performed By: #### 2 8, ####[facility]ORATORYCLIA [id number] [place] [address] [place] Creatinine [Mass/Vol] 1.06 mg/dL Normal 0.73-1.22 [facility] Comment on above: Order Comment: Speci men Type: BLOOD SPECIMENOrdering Facility: [facility] Address: [facility] [address] Performed By: #### 2 432-8, ####[facility]ATORYCLIA [id number] [place] [address] [place] ESTIMATED GLOMERULAR FILTRATION RATE 68 mL/min/1.73m??? Normal >=60 [facility] Comment on above: Order Comment: Elfego gilbert Type: BLOOD SPECIMENOrdering Facility: [facility] Address: [address] [place] [address] Result Comment: Concepción mated Glomerular Filtration Rate (eGFR) is calculated using the 2020 CKD-EPI creatinine equation. This equation utilizes serum creatinine, sex, and age as parameters. The creatinine assay has traceable calibration to isotope dilution-mass spectrometry. Refer to KDIGO guidelines for clinical interpretation. In patients with unstable renal function, e.g. those with acute kidney injury, the eGFR may not accurately reflect actual GFR. Performed By: #### 2 4323-8, 39652-7 ####[facility] SERVICESCLIA [id number] [place] [address] [place] Glucose [Mass/Vol] 97 mg/dL Normal 74-99 [facility] Comment on above: Order Comment: Elfego gilbert Type: BLOOD SPECIMENOrdering Facility: [facility] Address: [address] [place] [address] Result Comment: The [place] Diabetes Association (ADA) provides guidance for cutoff values for fasting glucose and random glucose. The ADA defines fasting as no caloric intake for at least 8 hours. Fasting plasma glucose results between 100 to 125 mg/dL indicate increased risk for diabetes (prediabetes).Fasting plasma glucose results greater than or equal to 126 mg/dL meet the criteria for diagnosis of diabetes. In the absence of unequivocal hyperglycemia, results should be confirmed by repeat testing. In a patient with classic symptoms of hyperglycemia or hyperglycemic crisis, random plasma glucose results greater than or equal to 200 mg/dL meet the criteria for diagnosis of diabetes.Reference: Standards of Medical Care in Diabetes 2016, [place] [employer] Association. Diabetes Care. 2016.39(Suppl 1). Performed By: #### 2 4323-8, 40503-4 ####[facility]ORATORYCLIA [id number] [address] [id number] [place] Potassium [Moles/Vol] 3.9 mmol/L Normal 3.7-5.1 [facility] Comment on above: Order Comment: Speci men Type: BLOOD SPECIMENOrdering Facility: [facility] Address: [address] [place] [address] Performed By: #### 2 8, ####[facility]ORATORYCLIA [id number] [address] STATES [facility] Protein [Mass/Vol] 5.6 g/dL Low 6.3-8.0 [facility] Comment on above: Order Comment: Speci men Type: BLOOD SPECIMENOrdering Facility: [facility] Address: [address] [place] [address] Performed By: #### 2 8, ####[facility]ATORYCLIA [id number] [address] [place] Sodium [Moles/Vol] 140 mmol/L Normal 136-144 [facility] Comment on above: Order Comment: Speci men Type: BLOOD SPECIMENOrdering Facility: [facility] Address: [address] [place] [address] Performed By: #### 2 4323-06, ####[facility]ATORYCLIA [id number] [address] [facility] Urea nitrogen [Mass/Vol] 25 mg/dL High 9-24 [facility] Comment on above: Order Comment: Speci men Type: BLOOD SPECIMENOrdering Facility: [facility] Address: [address] [place] [address] Performed By: #### 2 8, ####[facility]ORATORYCLIA [id number] [address] [place] HISTORY PHYSICALon HISTORY PHYSICAL Normal [facility] Magnesium SerPl-mCncon 07-05 Magnesium [Mass/Vol] 1.9 mg/dL Normal 1.7-2.3 [facility] Comment on above: Order Comment: Speci men Type: BLOOD SPECIMENOrdering Facility: [facility] Address: [address] [place] [address] Performed By: #### 2 432-8, 05485-7 ####[facility]ORATORYCLIA [id number] [address] Retics #on 07-05-2022 Reticulocytes (Bld) [#/Vol] 0.14240 10*3/uL Normal 0.018-0.10 0 [facility] Comment on above: Order Comment: Speci men Type: BLOOD SPECIMENOrdering Facility: [facility] Address: [address] [place] [address] Performed By: #### 1 4196-0, 65167-6 ####[facility]ATORYCLIA [id number] [address] Reticulocytes (Bld) [#/Vol]o n 07-05-2022 Reticulocytes/100 RBC (Bld) 1.8 % Normal 0.4-2.0 [facility] Comment on above: Order Comment: Speci men Type: BLOOD SPECIMENOrdering Facility: [facility] Address: [address] [place] [address] Performed By: #### 1 4196-0, 97755-1 ####[facility]ORATORYCLIA [id number] [place] [address] [place] US DOPPLER LTDon 07-05-2022 US DOPPLER LTD Normal [facility] US SCROTUM AND CONTENTSon US SCROTUM AND CONTENTS Normal [facility] Urinalysis complete panel (U )on 07-05-2022 Bilirubin Ql (U) Negative Normal Negative [facility] Comment on above: Order Comment: Speci men Type: URINE SPECIMENOrdering Facility: [facility] Address: [address] [place] [address] Performed By: #### 2 4356-8 ####[facility]ATORYCLIA [id number] [address] Clarity (Unsp spec) Clear Normal Clear [facility] Comment on above: Order Comment: Speci men Type: URINE SPECIMENOrdering Facility: [facility] Address: [address] [place] [address] Performed By: #### 2 4356-8 ####[facility]ATORYCLIA [id number] [address] Color (U) Colorless Normal yellow [facility] Comment on above: Order Comment: Speci men Type: URINE SPECIMENOrdering Facility: [facility] Address: [address] [place] [address] Performed By: #### 2 4356-8 ####[facility] LABORATORYCLIA [id number] [address] Glucose Test strip (U) [Mass/Vol] Negative Normal Negative [facility] Comment on above: Order Comment: Speci men Type: URINE SPECIMENOrdering Facility: [facility] Address: [address] [place] [address] Performed By: #### 2 4356-8 ####[facility]ATORYCLIA [id number] [address] [facility] Hemoglobin Ql (U) Negative Normal Negative [facility] Comment on above: Order Comment: Speci men Type: URINE SPECIMENOrdering Facility: [facility] Address: [address] [place] [address] Performed By: #### 2 4356-8 ####[facility]ATORYCLIA [id number] [address] [place] Hyaline casts (Urine sed) [#/Area] 1-3 /LPF Abnormal 0 /LPF [facility] Comment on above: Order Comment: Speci men Type: URINE SPECIMENOrdering Facility: [facility] Address: [address] [place] [address] Performed By: #### 2 4356-8 ####[facility]ATORYCLIA [id number] [address] Ketones Ql (U) Negative Normal Negative [facility] Comment on above: Order Comment: Speci men Type: URINE SPECIMENOrdering Facility: [facility] Address: [address] [address] Performed By: #### 2 4356-8 ####[facility]ATORYCLIA [id number] [address] Leukocyte esterase Test strip Ql (U) Negative Normal Negative [facility] Comment on above: Order Comment: Speci men Type: URINE SPECIMENOrdering Facility: [facility] Address: [address] [place] [address] Performed By: #### 2 4356-8 ####[facility]ATORYCLIA [id number] [address] Nitrite Ql (U) Negative Normal Negative [facility] Comment on above: Order Comment: Speci men Type: URINE SPECIMENOrdering Facility: [facility] Address: [address] [place] [address] Performed By: #### 2 4356-8 ####[facility]ATORYCLIA [id number] [address] pH (U) 5.0 [pH] Normal 5.0-8.0 [facility] Comment on above: Order Comment: Speci men Type: URINE SPECIMENOrdering Facility: [facility] Address: [address] [place] [address] Performed By: #### 2 4356-8 ####[facility]ATORYCLIA [id number] [address] Protein (U) [Mass/Vol] Negative Normal Negative [facility] Comment on above: Order Comment: Speci men Type: URINE SPECIMENOrdering Facility: [facility] Address: [address] [place] [address] Performed By: #### 2 4356-8 ####[facility]ATORYCLIA [id number] [address] RBC LM.HPF (Urine sed) [#/Area] 0-3 /HPF Normal 0-3 /HPF [facility] Comment on above: Order Comment: Speci men Type: URINE SPECIMENOrdering Facility: [facility] Address: [address] [place] [address] Performed By: #### 2 4356-8 ####[facility]ATORYCLIA [id number] [address] Specific gravity (U) [Rel density] 1.008 Normal 1.005-1.03 0 [facility] Comment on above: Order Comment: Speci men Type: URINE SPECIMENOrdering Facility: [facility] Address: [address] [place] [address] Performed By: #### 2 4356-8 ####[facility]ATORYCLIA [id number] [address] Urobilinogen Ql (U) Normal Normal Negative [facility] Comment on above: Order Comment: Speci men Type: URINE SPECIMENOrdering Facility: [facility] Address: [address] [place] [address] Performed By: #### 2 4356-8 ####[facility]ORATORYCLIA [id number] [address] [facility] WBC LM.HPF (Urine sed) [#/Area] 0-5 /HPF Normal 0-5 /HPF [facility] Comment on above: Order Comment: Speci men Type: URINE SPECIMENOrdering Facility: [facility] Address: [address] [place] [address] Performed By: #### 2 4356-8 ####[facility]ORATORYCLIA [id number] [place] [address] [place] Basic metabolic 2000 panelon 07-04-2022 Anion gap [Moles/Vol] 3 mmol/L Low 8-16 [facility] Comment on above: Order Comment: Speci men Type: BLOOD SPECIMENOrdering Facility: [facility] Address: [address] [place] [address] Performed By: #### 2 4321-2 ####[facility] LABCLIA [id number] [place] [address] [place] Calcium [Mass/Vol] 8.6 mg/dL Normal 8.5-10.1 [facility] Comment on above: Order Comment: Speci men Type: BLOOD SPECIMENOrdering Facility: [facility] Address: [address] [place] [address] Performed By: #### 2 4321-2 ####[facility] LABCLIA [id number] [place] [address] [place] Chloride [Moles/Vol] 104 mmol/L Normal 98-107 [facility] Comment on above: Order Comment: Speci men Type: BLOOD SPECIMENOrdering Facility: [facility] Address: [address] [place] [address] Performed By: #### 2 4321-2 ####[facility] LABCLIA [id number] [place] [address] [place] CO2 [Moles/Vol] 32 mmol/L Normal 21-32 [facility] Comment on above: Order Comment: Speci men Type: BLOOD SPECIMENOrdering Facility: [facility] Address: [address] [place] [address] Performed By: #### 2 4321-2 ####[facility] [employer] LABCLIA [id number] [place] [address] [place] Creatinine [Mass/Vol] 1.00 mg/dL Normal 0.67-1.17 [facility] Comment on above: Order Comment: Speci men Type: BLOOD SPECIMENOrdering Facility: [facility] Address: [address] [place] [address] Performed By: #### 2 4321-2 ####[facility] [employer] LABCLIA [id number] [place] [address] [facility] ESTIMATED GLOMERULAR FILTRATION RATE 73 mL/min/1.73m??? Normal >=60 [facility] Comment on above: Order Comment: Speci men Type: BLOOD SPECIMENOrdering Facility: [facility] Address: [address] [place], [place] [id number] Result Comment: Concepción mated Glomerular Filtration Rate (eGFR) is calculated using the 2020 CKD-EPI creatinine equation. This equation utilizes serum creatinine, sex, and age as parameters. The creatinine assay has traceable calibration to isotope dilution-mass spectrometry. Refer to KDIGO guidelines for clinical interpretation. In patients with unstable renal function, e.g. those with acute kidney injury, the eGFR may not accurately reflect actual GFR. Performed By: #### 2 4321-2 ####[facility] [employer] LABIA [id number] [place] [address] [place] Glucose [Mass/Vol] 112 mg/dL High 70-99 [facility] Comment on above: Order Comment: Speci men Type: BLOOD SPECIMENOrdering Facility: [facility] Address: [address] [place] [address] Result Comment: The [place] Diabetes Association (ADA) provides guidance for cutoff values for fasting glucose and random glucose. The ADA defines fasting as no caloric intake for at least 8 hours. Fasting plasma glucose results between 100 to 125 mg/dL indicate increased risk for diabetes (prediabetes).Fasting plasma glucose results greater than or equal to 126 mg/dL meet the criteria for diagnosis of diabetes. In the absence of unequivocal hyperglycemia, results should be confirmed by repeat testing. In a patient with classic symptoms of hyperglycemia or hyperglycemic crisis, random plasma glucose results greater than or equal to 200 mg/dL meet the criteria for diagnosis of diabetes.Reference: Standards of Medical Care in Diabetes 2016, [place] Diabetes Association. Diabetes Care. 2016.39(Suppl 1). Performed By: #### 2 4321-2 ####[facility] LABCLIA [id number] [place] [address] [place] Potassium [Moles/Vol] 4.7 mmol/L Normal 3.5-5.1 [facility] Comment on above: Order Comment: Specjason gilbert Type: BLOOD SPECIMENOrdering Facility: [facility] Address: [address] [place] [address] Performed By: #### 2 4321-2 ####[facility] [employer] LABCLIA [id number] [address] [place] [facility] Sodium [Moles/Vol] 139 mmol/L Normal 136-145 [facility] Comment on above: Order Comment: Speci men Type: BLOOD SPECIMENOrdering Facility: [facility] Address: [address] [place] [address] Performed By: #### 2 4321-2 ####[facility] LABCLIA [id number] [place] [address] [place] Urea nitrogen [Mass/Vol] 26 mg/dL High 7-18 [facility] Comment on above: Order Comment: Speci men Type: BLOOD SPECIMENOrdering Facility: [facility] Address: [address] [place] [address] Performed By: #### 2 4321-2 ####[facility] LABCLIA [id number] [address] [facility] CBC W Auto Differential pane l (Bld)on 07-04-2022 Basophils (Bld) [#/Vol] 0.12 10*3/uL High <0.11 [facility] Comment on above: Order Comment: Speci men Type: BLOOD SPECIMENOrdering Facility: [facility] Address: [address] [place] [address] Performed By: #### 5 7021-8 ####[facility] LABCLIA [id number] [place] [address] [place] Basophils/100 WBC (Bld) 1.5 % Normal [facility] Comment on above: Order Comment: Speci men Type: BLOOD SPECIMENOrdering Facility: [facility] Address: [address] [place] [address] Performed By: #### 5 7021-8 ####[facility] LABCLIA [id number] [place] [address] [place] [facility] Differential cell count method Nom (Bld) Auto Normal [facility] Comment on above: Order Comment: Speci men Type: BLOOD SPECIMENOrdering Facility: [facility] Address: [address] [place] [address] Performed By: #### 5 7021-8 ####[facility] LABCLIA [id number] [place] [address] [facility] Eosinophils (Bld) [#/Vol] 0.09 10*3/uL Normal <0.46 [facility] Comment on above: Order Comment: Speci men Type: BLOOD SPECIMENOrdering Facility: [facility] Address: [address] [place] [address] Performed By: #### 5 7021-8 ####[facility] LABCLIA [id number] [address] Eosinophils/100 WBC (Bld) 1.1 % Normal [facility] Comment on above: Order Comment: Speci men Type: BLOOD SPECIMENOrdering Facility: [facility] Address: [address] [place] [address] Performed By: #### 5 7021-8 ####[facility] LABCLIA [id number] [place] [address] [facility] [place] Erythrocyte distribution width (RBC) [Ratio] 19.6 % High 11.5-15.0 [facility] Comment on above: Order Comment: Speci men Type: BLOOD SPECIMENOrdering Facility: [facility] Address: [address] [place] [address] Performed By: #### 5 7021-8 ####[facility] LABCLIA [id number] [place] [address] [facility] [place] Hematocrit (Bld) [Volume fraction] 26.6 % Low 39.0-51.0 [facility] Comment on above: Order Comment: Speci men Type: BLOOD SPECIMENOrdering Facility: [facility] Address: [address] [place] [address] Performed By: #### 5 7021-8 ####[facility] LABCLIA [id number] [place] [address] [place] Hemoglobin (Bld) [Mass/Vol] 8.8 g/dL Low 13.0-17.0 [facility] Comment on above: Order Comment: Speci men Type: BLOOD SPECIMENOrdering Facility: [facility] Address: [address] [place] [address] Performed By: #### 5 7021-8 ####[facility] LABCLIA [id number] [place] [address] [place] Lymphocytes (Bld) [#/Vol] 1.19 10*3/uL Normal 1.00-4.00 [facility] Comment on above: Order Comment: Speci men Type: BLOOD SPECIMENOrdering Facility: [facility] Address: [address] [place] [address] Performed By: #### 5 7021-8 ####[facility] [employer] LABCLIA [id number] [address] [place] Lymphocytes/100 WBC (Bld) 14.7 % Normal [facility] Comment on above: Order Comment: Speci men Type: BLOOD SPECIMENOrdering Facility: [facility] Address: [address] [place] [address] Performed By: #### 5 7021-8 ####MAALIREZA SAUCEDA [employer] LABCLIA [id number] [place] [address] [place] MCH (RBC) [Entitic mass] 37.0 pg High 26.0-34.0 [facility] Comment on above: Order Comment: Speci men Type: BLOOD SPECIMENOrdering Facility: [facility] Address: [address] [place] [address] Performed By: #### 5 7021-8 ####[facility] LABCLIA [id number] [place] [address] [place] MCHC (RBC) [Mass/Vol] 33.1 g/dL Normal 30.5-36.0 [facility] Comment on above: Order Comment: Speci men Type: BLOOD SPECIMENOrdering Facility: [facility] Address: [address] [place] [address] Performed By: #### 5 7021-8 ####[facility] LABCLIA [id number] [place] [address] [place] MCV (RBC) [Entitic vol] 111.8 fL High 80.0-100.0 [facility] Comment on above: Order Comment: Speci men Type: BLOOD SPECIMENOrdering Facility: [facility] Address: [address] [place] [address] Performed By: #### 5 7021-8 ####PEG [facility] LABCLIA [id number] [place] [address] [place] Monocytes (Bld) [#/Vol] 1.03 10*3/uL High <0.87 [facility] Comment on above: Order Comment: Speci men Type: BLOOD SPECIMENOrdering Facility: [facility] Address: [address] [place] [address] Performed By: #### 5 7021-8 ####MAALIREZA [facility] LABCLIA [id number] [place] [address] [place] Monocytes/100 WBC (Bld) 12.7 % Normal [facility] Comment on above: Order Comment: Speci men Type: BLOOD SPECIMENOrdering Facility: [facility] Address: [address] [place], [place] [address] Performed By: #### 5 7021-8 ####[facility] LABCLIA [id number] [place] [address] [place] Neutrophils (Bld) [#/Vol] 5.69 10*3/uL Normal 1.45-7.50 [facility] Comment on above: Order Comment: Speci men Type: BLOOD SPECIMENOrdering Facility: [facility] Address: [address] [place], [place] [address] Performed By: #### 5 7021-8 ####[facility] LABCLIA [id number] [place] [address] [place] Neutrophils/100 WBC (Bld) 70.0 % Normal [facility] Comment on above: Order Comment: Speci men Type: BLOOD SPECIMENOrdering Facility: [facility] Address: [address] [place] [address] Performed By: #### 5 7021-8 ####[facility] LABCLIA [id number] [place] [address] [place] Platelet mean volume (Bld) [Entitic vol] 10.8 fL Normal 9.0-12.7 [facility] Comment on above: Order Comment: Speci men Type: BLOOD SPECIMENOrdering Facility: [facility] Address: [address] [place] [address] Performed By: #### 5 7021-8 ####[facility] LABCLIA [id number] [place] [address] [place] Platelets (Bld) [#/Vol] 239 10*3/uL Normal 150-400 [facility] Comment on above: Order Comment: Speci men Type: BLOOD SPECIMENOrdering Facility: [facility] Address: [address] [place] [address] Performed By: #### 5 7021-8 ####[facility] [employer] LABCLIA [id number] [place] [address] [place] RBC (Bld) [#/Vol] 2.38 10*6/uL Low 4.20-6.00 [facility] Comment on above: Order Comment: Speci men Type: BLOOD SPECIMENOrdering Facility: [facility] Address: [address] [place] [address] Performed By: #### 5 7021-8 ####[facility] [employer] LABCLIA [id number] [address] [address] [facility] WBC (Bld) [#/Vol] 8.12 10*3/uL Normal 3.70-11.00 [facility] Comment on above: Order Comment: Speci men Type: BLOOD SPECIMENOrdering Facility: [facility] Address: [address] [place] [address] Performed By: #### 5 7021-8 ####[facility] LABCLIA [id number] [place] [address] [facility] ED NOTEon 07-04-2022 ED NOTE HNO ID: [id number] Author: Rosa Carter RN Service: Emergency Medicine Author Type: Registered Nurse Type: ED Notes Filed: 07/04/2022 6:27 PM Note Text: Report given to [facility]. Normal [facility] ED NOTE HNO ID: [id number] Author: Rosa Carter RN Service: Emergency Medicine Author Type: Registered Nurse Type: ED Notes Filed: 07/04/2022 5:57 PM Note Text: Report given to zak jiménez. Normal [facility] ED NOTE HNO ID: [id number] Author: Ju Huynh RN Service: Emergency Medicine Author Type: Registered Nurse Type: ED Notes Filed: 07/04/2022 2:11 PM Note Text: Bilateral leg swelling x1 month, states swelling has moved to scrotum. States SOB. Normal [facility] ED PROV NOTEon 07-04-2022 ED PROV NOTE Normal [facility] ED PROV NOTE Normal [facility] NT-proBNP SerPl-mCncon 07-04 Natriuretic peptide.B prohormone N-Terminal [Mass/Vol] 54883 pg/mL High <450 [facility] Comment on above: Order Comment: Speci men Type: BLOOD SPECIMENOrdering Facility: [facility] Address: [address] [place] [address] Performed By: #### T ROP, 81506-7 ####[facility] LABCLIA [id number] [place] [address] [facility] SARS-CoV-2 RNA Resp Ql OLIVER+p robeon 08-26-2022 SARS-CoV-2 (COVID-19) RNA OLIVER+probe Ql (Resp) SARS-CoV-2 (Agent of COVID-19) Not Detected by RT-PCR or equivalent method. Normal Not Detected [facility] Comment on above: Order Comment: Speci men Type: SWAB OF INTERNAL NOSEOrdering Facility: [facility] Address: [address] [place] [address] Result Comment: This test has been authorized by FDA under an Emergency Use Authorization (EUA). Performed By: #### 9 4500-6 ####[employer] LABCLIA [id number] [address] [place] TROPONIN Ion 07-04-2022 Troponin I.cardiac [Mass/Vol] 0.050 ng/mL High <0.040 [facility] Comment on above: Order Comment: Speci men Type: BLOOD SPECIMENOrdering Facility: [facility] Address: [address] [place] [address] Performed By: #### T ROP, 26596-7 ####[facility] [employer] LABCLIA [id number] [address] [place] Urinalysis complete panel (U )on 07-04-2022 Bilirubin Ql (U) Negative Normal Negative [facility] Comment on above: Order Comment: Speci men Type: URINE SPECIMENOrdering Facility: [facility] Address: [address] [place] [address] Performed By: #### 2 4356-8 ####[employer] LABCLIA [id number] [place] [address] [place] Clarity (Unsp spec) Clear Normal Clear [facility] Comment on above: Order Comment: Speci men Type: URINE SPECIMENOrdering Facility: [facility] Address: [address] [place] [address] Performed By: #### 2 4356-8 ####[employer] [facility] LABCLIA [id number] [place] [address] [facility] Color (U) Yellow Normal Yellow [facility] Comment on above: Order Comment: Speci men Type: URINE SPECIMENOrdering Facility: [facility] Address: [address] [place] [address] Performed By: #### 2 4356-8 ####[facility] LABCLIA [id number] [address] Glucose Test strip (U) [Mass/Vol] Negative Normal Negative [facility] Comment on above: Order Comment: Speci men Type: URINE SPECIMENOrdering Facility: [facility] Address: [address] [place] [address] Performed By: #### 2 4356-8 ####[facility] LABCLIA [id number] [address] Hemoglobin Ql (U) Negative Normal Negative [facility] Comment on above: Order Comment: Speci men Type: URINE SPECIMENOrdering Facility: [facility] Address: [address] [place] [address] Performed By: #### 2 4356-8 ####[facility] LABCLIA [id number] [address] Ketones Ql (U) Negative Normal Negative [facility] Comment on above: Order Comment: Speci men Type: URINE SPECIMENOrdering Facility: [facility] Address: [address] [place] [address] Performed By: #### 2 4356-8 ####[facility] LABCLIA [id number] [address] Leukocyte esterase Test strip Ql (U) Negative Normal Negative [facility] Comment on above: Order Comment: Speci men Type: URINE SPECIMENOrdering Facility: [facility] Address: [address] [place] [address] Performed By: #### 2 4356-8 ####[facility] LABCLIA [id number] [place] [address] [place] Nitrite Ql (U) Negative Normal Negative [facility] Comment on above: Order Comment: Speci men Type: URINE SPECIMENOrdering Facility: [facility] Address: [address] [place] [address] Performed By: #### 2 4356-8 ####MAALIREZA SAUCED[facility] [place] LABCLIA [id number] [place] [address] [place] pH (U) 5.5 [pH] Normal 5.0-8.0 [facility] Comment on above: Order Comment: Speci men Type: URINE SPECIMENOrdering Facility: [facility] Address: [address] [place] [address] Performed By: #### 2 4356-8 ####[facility] LABIA [id number] [place] [address] [facility] Protein (U) [Mass/Vol] Trace Abnormal Negative [facility] Comment on above: Order Comment: Speci men Type: URINE SPECIMENOrdering Facility: [facility] Address: [address] [place] [address] Performed By: #### 2 4356-8 ####MAALIREZA SAUCEDA [place] LABIA [id number] [place] [address] [place] RBC LM.HPF (Urine sed) [#/Area] 0-3 /HPF Normal 0-3 /HPF [facility] Comment on above: Order Comment: Speci men Type: URINE SPECIMENOrdering Facility: [facility] Address: [address] [place] [address] Performed By: #### 2 4356-8 ####MAALIREZA SAUCED[facility] [place] LABIA [id number] [place] [address] [facility] Specific gravity (U) [Rel density] <1.005 Low 1.005-1.03 0 [facility] Comment on above: Order Comment: Speci men Type: URINE SPECIMENOrdering Facility: [facility] Address: [address] [place] [address] Performed By: #### 2 4356-8 ####[facility] LABCLIA [id number] [place] [address] [place] Urobilinogen Ql (U) Negative Normal Negative [facility] Comment on above: Order Comment: Speci men Type: URINE SPECIMENOrdering Facility: [facility] Address: [address] [place] [address] Performed By: #### 2 4356-8 ####[facility] LABCLIA [id number] [place] [address] [place] WBC LM.HPF (Urine sed) [#/Area] 0-5 /HPF Normal 0-5 /HPF [facility] Comment on above: Order Comment: Speci men Type: URINE SPECIMENOrdering Facility: [facility] Address: [address] [place] [address] Performed By: #### 2 4356-8 ####[facility] LABCLIA [id number] [place] [address] [place] XR CHEST 2V FRONTAL/LATon XR CHEST 2V FRONTAL/LAT Normal [facility] XR KNEE LIMITED 2V AP/LAT RI GHTon 06-04-2022 [facility] MRI LUMBAR SPINE WO IVCONon 05-26-2022 MRI LUMBAR SPINE WO IVCON Normal [facility] BMPon 09-20-2021 Anion gap [Moles/Vol] 8 mmol/L Normal 5-16 [facility] Comment on above: Order Comment: Campu s: M Performed By: #### L 500.92239, L500.51129 #### [facility] [address] [place] [address] Calcium [Mass/Vol] 9.4 mg/dL Normal 8.5-10.5 [facility] Comment on above: Order Comment: Campu s: M Result Comment: NOTE NEW NORMAL RANGE DUE TO REAGENT CHANGE Performed By: #### L 500.15249, L5.56269 #### [facility] [address] [place] [address] Chloride [Moles/Vol] 103 mmol/L Normal 98-107 [facility] Comment on above: Order Comment: Campu s: M Performed By: #### L 500.79818, L5.23480 #### [facility] [address] [place] [address] CO2 [Moles/Vol] 27.0 mmol/L Normal 21-32 [facility] Comment on above: Order Comment: Campu s: M Performed By: #### L 500.54709, L5.33053 #### [facility] [address] [place] [address] Creatinine [Mass/Vol] 0.90 mg/dL Normal 0.5-1.4 [facility] Comment on above: Order Comment: Campu s: M Result Comment: NOTE NEW NORMAL RANGE DUE TO REAGENT CHANGE Patients receiving either N-Acetylcysteine (NAC) or Metamizole prior to venipuncture, may have falsely depressed results. Performed By: #### L 500.79673, L5.72156 #### [facility] [address] [place] [address] Glucose [Mass/Vol] 102 mg/dL High 70-100 [facility] Comment on above: Order Comment: Campu s: M Result Comment: 70-1 00- Normal Fasting; 100-125 Impaired Fasting; greater than 126 on more than one result- Diabetes. ADA guidelines. Results may be falsely elevated after the administration of Sulfapyridine. Results may be falsely depressed after the administration of Sulfasalazine. Performed By: #### L 500.90919, L5.70840 #### [facility] [place] [address] Potassium [Moles/Vol] 4.5 mmol/L Normal 3.5-5.1 [facility] Comment on above: Order Comment: Campu s: M Result Comment: Slig ht Hemolysis, Result may be affected. Performed By: #### L 500.00183, L500.95298 #### [facility] [address] [place] [address] Sodium [Moles/Vol] 138 mmol/L Normal 136-145 [facility] Comment on above: Order Comment: Campu s: M Performed By: #### L 500.56259, L500.90039 #### [facility] [address] [place] [address] Urea nitrogen [Mass/Vol] 25 mg/dL Normal 7-26 [facility] Comment on above: Order Comment: Campu s: M Performed By: #### L 500.27575, L500.79523 #### [facility] [address] [place] [address] Urea nitrogen/Creatinine [Mass ratio] 28 mg/mg High 15-24 [facility] Comment on above: Order Comment: Campu s: M Performed By: #### L 500.59413, L500.06437 #### [facility] [address] [place] [address] CBC W/DIFFon 09-20-2021 BASO ABS 0.00 K/CU MM Normal 0-0.2 [facility] Comment on above: Order Comment: Campu s: M Performed By: #### L 200.51124 #### [facility] [address] [place] [address] Basophils/100 WBC (Bld) 0.6 % Normal 0-2 [facility] Comment on above: Order Comment: Campu s: M Performed By: #### L 200.04554 #### [facility] [address] [place] [address] EOS ABS 0.20 K/CU MM Normal 0-0.5 [facility] Comment on above: Order Comment: Campu s: M Performed By: #### L 200.23622 #### [facility] [address] [place] [address] Eosinophils/100 WBC (Bld) 2.7 % Normal 0-5 [facility] Comment on above: Order Comment: Campu s: M Performed By: #### L 200.71108 #### [facility] [address] [place] [address] Erythrocyte distribution width (RBC) [Ratio] 19.5 % High 11-14.5 [facility] Comment on above: Order Comment: Campu s: M Performed By: #### L 200.54530 #### [facility] [address] [place] [address] Hematocrit (Bld) [Volume fraction] 27.7 % Low 41.0-53.0 [facility] Comment on above: Order Comment: Campu s: M Performed By: #### L 200.90278 #### [facility] [address] [place] [address] Hemoglobin (Bld) [Mass/Vol] 9.4 g/dL Low 13.5-17.5 [facility] Comment on above: Order Comment: Campu s: M Performed By: #### L 200.39384 #### [facility] [address] [place] [address] IMMATR GRAN ABS 0.00 K/CU MM Normal Less than 2 [facility] Comment on above: Order Comment: Campu s: M Performed By: #### L 200.62936 #### [facility] [address] [place] [address] IMMATURE GRAN % 0.5 % Normal Less than 2 [facility] Comment on above: Order Comment: Campu s: M Performed By: #### L 200.86515 #### [facility] [address] [place] [address] LYMPH ABS 1.60 K/CU MM Normal 0.9-4.4 [facility] Comment on above: Order Comment: Campu s: M Performed By: #### L 200.42685 #### [facility] [address] [place] [address] Lymphocytes/100 WBC (Bld) 24.9 % Normal 20-40 [facility] Comment on above: Order Comment: Campu s: M Performed By: #### L 200.44274 #### [facility] [address] [place] [address] MCHC (RBC) [Mass/Vol] 33.9 g/dL Normal 32.0-36.0 [facility] Comment on above: Order Comment: Campu s: M Performed By: #### L 200.44725 #### [facility] [address] [place] [address] MCV (RBC) [Entitic vol] 104.9 fL High 80.0-99.0 [facility] Comment on above: Order Comment: Campu s: M Performed By: #### L 200.08510 #### [facility] [address] [place] [address] MONO ABS 0.80 K/CU MM Normal 0.1-1.1 [facility] Comment on above: Order Comment: Campu s: M Performed By: #### L 200.44924 #### [facility] [address] [place] [address] Monocytes/100 WBC (Bld) 11.9 % High 2-10 [facility] Comment on above: Order Comment: Campu s: M Performed By: #### L 200.19060 #### [facility] [address] [place] [address] NEUTROPHIL ABS 3.70 K/CU MM Normal 2.0-8.3 [facility] Comment on above: Order Comment: Campu s: M Performed By: #### L 200.59172 #### [facility] [place] [address] Neutrophils/100 WBC (Bld) 59.4 % Normal 45-75 [facility] Comment on above: Order Comment: Campu s: M Performed By: #### L 200.38071 #### [facility] [address] [place] [address] Nucleated RBC/100 WBC (Bld) [Ratio] 0.3 % Normal Less than 1 [facility] Comment on above: Order Comment: Campu s: M Performed By: #### L 200.31019 #### [facility] [address] [place] [address] Platelet mean volume (Bld) [Entitic vol] 11.6 fL Normal 9.4-12.4 [facility] Comment on above: Order Comment: Campu s: M Performed By: #### L [phone] #### [facility] [address] [place] [address] PLT 278 K/CU MM Normal 150-450 [facility] Comment on above: Order Comment: Campu s: M Performed By: #### L 200.36613 #### [facility] [address] [place] [address] RBC 2.64 M/CU MM Low 4.50-6.00 [facility] Comment on above: Order Comment: Campu s: M Performed By: #### L 200.13228 #### [facility] [address] [place], [place] [id number] WBC 6.3 K/CUMM Normal 4.5-11.0 [facility] Comment on above: Order Comment: Campu s: M Performed By: #### L 200.91423 #### [facility] [address] [place] [address] Chava 09-20-2021 EMERGENCY PHYSICIAN REPORT This is a preliminary report only, as the practitioner review and authentication has not occurred. Normal [facility] [place] ER PHYSICIAN ASSESSMENT RECORDS : FlexChartData Event Time: 09/20/2021 18:10 Status: Signed [facility] Srini Luis [[id number]] Attending Physician 85 / M / 1935 Chart (V2b) Chart created at 09/20/2021 18:06 by Benny Stoll Chart closed at 09/20/2021 20:29 Entry in Emergency Department at 09/20/2021 16:13, departure at 09/20/2021 20:49 Patient Name: Srini Luis Record Number: [id number] Date: 09/20/2021 18:06 Entered Department at: 09/20/2021 16:13 Patient Seen at: 09/20/2021 17:55 Chief Complaint:Leg Swelling Triage Note reviewed and Initial Vital Signs reviewed. Temperature: 98.4 F (36.9 C). Pulse: 84. Respiratory Rate: 16. Blood-pressure: 131/61. Oxygen Saturation: 96%. History of Present Illness: Is a very nice 85-year-old gentleman presents here to the ED for evaluation of right lower extremity swelling. History of Crohn disease status post CABG x4 in July 2021 out in [place]. Identified to have atrial fibrillation at that time initiated on Coumadin. He resides here locally and follows with Dr. Posadas and Dr. Minor. He was changed over to Xarelto by his sr. [employer] system administrator for his A. fib anticoagulation upon his return. He has been doing well postoperatively [facility] PAT[facility] NAME: [facility] MEDICAL REC #: [id number] [place] [address] EMERGENCY DEPARTMENT REPORT EMERGENCY DEPARTMENT PHYSICIAN although over the last several days he has had swelling along the medial aspect of his right lower extremity which prompted a visit to his primary care providers office today. Seen by the nurse practitioner and referred here to the ED for further evaluation. Patient has what appears to be a localized varicosity along the medial aspect of his right lower leg. He has been compliant with his anticoagulation. He denies any fevers. He has no chest pain or shortness of breath. No abdominal pain or vomiting. No other acute complaints. No history of DVT. Review of Systems. All other systems reviewed and negative.. Past History, Medications, Allergies, Social History and Family History reviewed in nurses note. Medications: Reviewed RN Note. xeralto, xeralto Allergies: Reviewed RN Note No Known Allergies No Known Allergies Social History: Reviewed RN Note. Family History: Reviewed RN Note Physical Examination: General: Alert; Pleasant, well-appearing HEENT: Normal ENT inspection. Head: Atraumatic. Eyes: PERRL; . Oropharynx / Throat: Moist mucous membranes. Neck: Supple Respiratory: No Resp Distress and Normal Breath Sounds Cardio-Vascular: RRR Abdomen: Non-tender and Soft Extremity: Patient has some asymmetric edema to the right lower extremity. He has a well-healed small incision along the right medial thigh. Distal to this is what appears to be a enlarged varicosity that is fluctuant, no palpable cords, nontender, nonerythematous. Extends from the right medial mid thigh down to near the ankle. He has some pitting edema as well. He does have old surgical scars in his ankle. He has a 2+ dorsalis pedis pulse. No findings of cellulitis along the leg. Neurological: Alert, [facility] PATIENT NAME: SRINI LUIS [facility] MEDICAL REC #: [id number] [place] [address] EMERGENCY DEPARTMENT REPORT EMERGENCY DEPARTMENT PHYSICIAN Oriented X3 and No Gross Weakness Skin: Warm and Dry Psychological: Mood/Affect Normal CBC W/DIFF, information as of 09/20/2021, 6:06 pm 104.9* / 9.4* / 6.3 andgt;------andlt; 278 / 27.7* / N:59.4 BASO ABS: 0.00 K/Cu Mm; BASOPHIL %: 0.6 %; EOS ABS: 0.20 K/Cu Mm; EOSINOPHIL %: 2.7 %; IMMATR GRAN ABS: 0.00 K/Cu Mm; IMMATURE GRAN %: 0.5 %; LYMPH %: 24.9 %; LYMPH ABS: 1.60 K/Cu Mm; MCHC: 33.9 Gm/Dl; MONO ABS: 0.80 K/Cu Mm; MONOCYTE %: 11.9 %; MPV: 11.6; NEUTROPHIL ABS: 3.70 K/Cu Mm; NRBC: 0.3 %; RBC: 2.64 M/Cu Mm; RDW: 19.5 BMP, information as of 09/20/2021, 7:07 pm 138 --------+--------+-------- andlt; 102* Anion Gap = 8 4.5 BUN/CREA: 28; CALCIUM TOTAL: 9.4 Mg/Dl Ultrasound - Lower Extremity: Right, and not DVT. Nonvascular fluid collection right lower extremity. Medical Decision Making Patient was seen and examined. Labs as noted above. Duplex ultrasound of the right lower extremity was obtained showing no evidence of DVT or SVT. Ultrasound reveals a 2.75 cm x 1.63 cm x 13.4 cm nonvascular area along the anterior medial lower leg. Patient observed and reassessed. Ultrasound again describes a nonvascular fluid collection. The fluid collection terminates just proximal to the saphenous vein harvest site raises a concern for either accumulated blood or lymphati (more content not included)... [facility] IF AMER Greater than 60 Normal [facility] Comment on above: Order Comment: Tomer pena: Robyn Performed By: #### L 500.08619, L500.09670 #### [facility] [place] [address] IF non-AFR AMER Greater than 60 Normal [facility] Comment on above: Order Comment: Tomer s: M Performed By: #### L 500.89233, L500.47677 #### [facility] [place] [address] VLVDon 09-20-2021 VENOUS DUPLEX REPORT Normal [facility] VASCULAR REPORT -- Patient: SRINI LUIS Account [id number] Ordering Phy: MR: [id number] Reason for Visit: SENT BY DR FOR LEG ISSUE - PROTRUDING SKIN Date of Service 09/20/21 Reading Physician: David Ledbetter MD [id number] SINGLE LE VENOUS DUPLEX SCAN [place] [address] Non- Invasive Vascular Laboratory Lower Extremity Venous Duplex ____ Name: SRINI LUIS Study Date: 09/20/2021 06:14 PM Patient Location: [facility] : 1935 Gender: Male Age: 85 yrs Ethnicity: [place] Accession No. [id number] No. [id number] Order No. [id number] Reason For Study: M79.89 (Swelling) Other specified soft tissue disorders Interpretation Summary No evidence of deep vein thrombosis (DVT) or superficial vein thrombosis in the right lower extremity. Non vascular area along anterior medial(area CC: Benny Stoll MD [facility] PATIENT NAME: SRINI LUIS [address] [place] MEDICAL REC #: [id number] [place] [address] ADMIT DATE: DISCHARGE DATE: 09/20/21 VENOUS DUPLEX REPORT ATTENDING PHY: Benny Stoll MD Electronically Signed by: David Ledbetter MD Esign Date: 09/20/21 VASCULAR REPORT -- Patient: SRINI LUIS Account [id number] Ordering Phy: MR: [id number] Reason for Visit: SENT BY DR FOR LEG ISSUE - PROTRUDING SKIN Date of Service 09/20/21 Reading Physician: David Ledbetter MD of [facility]) measures 13.4 x 1.63 x 2.75 cm. Follow up if clinically indicated, with a routine soft tissue ultrasound in Radiology. Right Findings Left Findings Veins Spont PhasicAugmentPulsatilReflu xVeins Spont PhasicAugmentPulsatilReflu x CFV. Normal.Normal.Normal. No. CFV. Normal.Normal.Normal. No. FV. Normal.Normal.Normal. No. POP. Normal.Normal.Normal. No. GSV. Normal.Normal.Normal. No. Compression Compression Rt. CFV: Lt. CFV: Completely Completely Compressible. Compressible. Rt. DFV: Completely Compressible. Rt. FV Prox: Completely Compressible. Rt. FV Mid: Competely Compressible. Rt. FV Dist: Completely Compressible. Rt. POP: Completely Compressible. Rt. Ant Tib: Completely CC: Benny Stoll MD [facility] PATIENT [facility]: [facility] [place] MEDICAL REC #: [id number] [place] [address] ADMIT DATE: DISCHARGE DATE: 09/20/21 VENOUS DUPLEX REPORT ATTENDING PHY: Benny Stoll MD Electronically Signed by: David Ledbetter MD Esign Date: 09/20/21 VASCULAR REPORT -- Patient: SRINI LUIS Account [id number] Ordering Phy: MR: [id number] Reason for Visit: SENT BY FOR LEG ISSUE - PROTRUDING SKIN Date of Service 09/20/21 Reading Physician: David Ledbetter MD Compressible. Rt. PTV: Completely Compressible. Rt. PeroV: Completely Compressible. Rt. Gastroc: Completely Compressible. Rt. Soleal: Completely Compressible. Rt. GSV: Completely Compressible. Rt. SSV: Completely Compressible. Right Findings The right lower extremity was evaluated with grayscale, color and spectral Doppler. The level of the calf to the level of the common femoral vein shows compressibility throughout the deep and superficial venous system. Color and spectral Doppler waveform analysis of the deep and superficial venous system demonstrates spontaneous, phasic and augmented flow with no evidence of reflux in the deep or superficial venous system,. These findings are consistent with the absence of deep vein thrombosis (DVT) or superficial vein thrombosis. Contralateral common femoral vein visualized for comparison and is normal with spontaneous, phasic venous flow. Non vascular area along anterior medial(area of lump) measures 13.4 x 1.63 x 2.75 cm. CC: Benny Stoll MD [facility] PATIENT NAME: SRINI LUIS [facility] [address] [place] MEDICAL REC #: [id number] [place] [address] ADMIT DATE: DISCHARGE DATE: 09/20/21 VENOUS DUPLEX REPORT ATTENDING PHY: Benny Stoll MD Electronically Signed by: David Ledbetter MD Esign Date: 09/20/21 VASCULAR REPORT -- Patient: SRINI LUIS Account [id number] Ordering Phy: MR: [id number] Reason for Visit: SENT BY DR FOR LEG ISSUE - PROTRUDING SKIN Date of Service 09/20/21 Reading Physician: David Ledbetter MD ____ Electronically signed b (more content not included)... Normal [facility] US DVT LOWER RTon 02-01-2021 US DVT LOWER RT Final Report DATE OF EXAM: Feb 01 2021 2:00PM GRU 1007 - US DVT LOWER RT / PROCEDURE REASON: Leg swelling Physician Interpretation EXAMINATION: RIGHT LOWER EXTREMITY DEEP VENOUS ULTRASOUND WITH DOPPLER IMAGING CLINICAL HISTORY: Leg swelling TECHNIQUE: Grayscale with compression maneuvers, color Doppler and spectral Doppler at rest and with augmentation of the right distal external iliac, common femoral, femoral and popliteal veins was performed. Grayscale with compression maneuvers of the peroneal and posterior tibial veins was performed. The right great and small saphenous veins were also imaged in grayscale with compression maneuvers at their insertion to the deep system. The contralateral common femoral vein was imaged for comparison. Images were obtained and stored in a permanent archive. MQ: LER_1 COMPARISON: None RESULT: RIGHT LOWER EXTREMITY PROXIMAL DEEP VEINS Distal External Iliac and Common Femoral Veins: Compression: Normal Doppler: Normal, spontaneous respirophasic flow. Normal response to augmentation. Femoral vein: Compression: Normal Doppler: Normal, spontaneous flow. Normal response to augmentation. Popliteal vein: Compression: Normal Doppler: Normal, spontaneous flow. Normal response to augmentation. CALF DEEP VEINS Peroneal veins: Normal compression. Posterior tibial veins: Normal compression. Gastrocnemius and Soleal veins: Not imaged. SUPERFICIAL VEINS Great saphenous: Patent and compressible at insertion into common femoral vein; not otherwise assessed. Small Saphenous: Not identified. LEFT LOWER EXTREMITY (FOR COMPARISON) Common Femoral Vein: Compression: Normal Doppler: Normal, spontaneous respirophasic flow. Normal response to augmentation. IMPRESSION: Negative study for acute proximal DVT in the right lower extremity. Negative study for acute calf DVT in the right lower extremity. Negative study for acute superficial thrombophlebitis in the imaged segments of the right lower extremity. Auto Car[employer] Driver: PSCRobert Transcribe Date/Time: Feb 01 2021 2:03P Dictated by : LARON CEDEÑO MD This examination was interpreted and the report reviewed and electronically signed by: LARON CEDEÑO MD on Feb 01 2021 2:05PM EST Normal [facility] CT ANKLE WO IVCON RTon 10-16 CT ANKLE WO IVCON RT Final Report DATE OF EXAM: Oct 16 2020 6:20PM [facility] 0061 - CT ANKLE WO IVCON RT / PROCEDURE REASON: m19.071 Physician Interpretation EXAM TITLE: CT ANKLE WO IVCON RT DATE: 10/16/2020 COMPARISON: Ankle series 06/16/2019 CLINICAL INDICATION/HISTORY: Right ankle pain, osteoarthritis TECHNIQUE: Axial imaging was performed through the knee and through the ankle and foot with sagittal and coronal reconstruction images at both locations. CT Radiation dose: Integrated Dose-length product (DLP) for this visit = 1859.[address] Dose Reduction Employed: Automated exposure control(AEC) and iterative recon FINDINGS: At the knee, there is no acute bony abnormality. No fracture or dislocation. There is mild osteoarthritis at the medial compartment with moderate osteoarthritis at the patellofemoral joint. 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 At the ankle, there is no acute bony abnormality. No fracture, dislocation or stress-related change. There is severe narrowing of the tibiotalar joint with mild subcortical sclerosis and cystic change. Mild marginal osteophytosis is also present. There are intra-articular loose bodies, most pronounced within the anterior ankle recess. Mild hindfoot valgus is present. Degenerative changes are seen between the lateral malleolus and the lateral talar process. There is mild osteoarthritis along the far lateral portion of the posterior subtalar joint. There is the suggestion of a high-grade partial tear of the peroneus longus tendon. The proximal visualized segment is abnormally thickened before becoming extremely diminutive in caliber as it courses posterior to the distal fibula. A large volume of fluid is noted along the flexor hallucis longus tendon which may be related to tenosynovitis or could be secondary to communication with the ankle joint. There is shown to be a moderate effusion. There is bunion formation at the medial head of the first metatarsal with hallux valgus. Mild to moderate osteoarthritis at the first MTP joint. There is moderate circumferential subcutaneous edema and infiltration at the lower leg and ankle with mild edema continuing into the foot. IMPRESSION: 1. No acute bony abnormality. 2. 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 Associated joint effusion and intra-articular loose bodies. 3. Mild hindfoot valgus with degenerative changes present between the lateral malleolus and the lateral talar process. 4. Osteoarthritis at the posterior subtalar joint and at the first MTP joint. 5. Probable high-grade partial tear of the mid peroneus longus tendon. 6. Flexor hallucis longus tenosynovitis versus communication with the ankle joint. Auto Carrier Driver: PSCB Transcribe Date/Time: Oct 17 2020 8:58A Dictated by : ISABEL ZAVALETA MD This examination was interpreted and the report reviewed and electronically signed by: ISABEL ZAVALETA MD on Oct 17 2020 9:10AM EST Normal [facility] Clinical Summary: HMSPatient IDon 09-28-2020 AOP [facility] Work Phone: Clinical Lists Update: Prelo ad Extendedon 09-27-2020 Tobacco smoking status NHIS Tobacco smoking status [facility] Work Phone: Clinical Summary: Data Submi tted by Patient in [place] 09-27-2020 #DEP CHLDRN No [facility] Work Phone: 3+ETOHDAILY less than 1 drink per day [facility] Work Phone: ALLERGY COMM Simvastatin [facility] Work Phone: ASTHEHSZHOUS 1 floor [facility] Work Phone: DEATHCAU DAD Heart Disease [facility] Work Phone: DEATHCAU MOM Heart [facility] Work Phone: DEP ALG LIST I don't have any adalberto g allergies.,I don't have any food allergies.,I don't have any environmental allergies. 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 [facility] Work Phone: DEP ETOH USE Yes [facility] Work Phone: DEP EXERCISE Yes [facility] Work Phone: DEP EXERTYP cycling [facility] Work Phone: DEP MED LIST Aleve 220 mg Cap, 1 times per day,Multi-Delyn 10.8 mg/mL;72 unt/mL;2.7 unt/mL;2.44 mg/mL;0.189 mg/mL;0.168 mg/mL;0.168 mg/mL;450 unt/mL;0.12314 mg/mL Annika, 1 times per day,Animi-3 With Vitamin D 1000 unt;1 mg;500 mg;200 mg;12.5 mg Cap, 1 times per day,Levothyroxine 0.112 mg Tab, 1 times per day,Fisherman's Friend 10 mg Lozenge, 1 times per day,Ecotrin [address], 1 times per day,Atorvastatin 10 mg Tab, 1 times per day [facility] Work Phone: DEP SH CSMO former smoker [facility] Work Phone: DEP SH FSMO 1988 [facility] Work Phone: DEP SH MAST [facility] Work Phone: DEP SURGERY Elbow surgery, Shoul lyn replacement - total [facility] Work Phone: DEPADDLPROB Myasthenia Gravis, S reji stenosis, Both shoulders replaced [facility] Work Phone: DEPEXER FREQ 3 days per week [facility] Work Phone: DEPFHMATUNKN My mother's health h istory is unknown [facility] Work Phone: ETOHPERFRM beer [facility] Work Phone: EXERThe E[employer]ers COM I am [employer] member and use various equipment. [facility] Work Phone: FATHER A/D [facility] Work Phone: [id number] [facility] Work Phone: MOTHER A/D [facility] Work Phone: PREPRGETOH Zero times in the pa st 30 years of having more than 2 in any one day. [facility] Work Phone: RLATNSHPINFR Self [facility] Work Phone: [facility] Work Phone: TOBUSEWHEN 25 [facility] Work Phone: WEBSURGCOM Both shoulders [facility] Work Phone: Vital Signs Date Time Vital Sign Value Performing Clinician Facility 06-09-2025 09:53-0400 Body temperature 97 [degF] Injection Wstr Work Phone: [facility] 06-09-2025 09:53-0400 Diastolic blood pressure 64 mm[Hg] Injection Wstr Work Phone: [facility] 06-09-2025 09:53-0400 Heart rate 81 /min Injection Wstr Work Phone: [facility] 06-09-2025 09:53-0400 Respiratory rate 12 /min Injection Wstr Work Phone: [facility] 06-09-2025 09:53-0400 SaO2% (BldA) [Mass fraction] 95 % Injection Wstr Work Phone: [facility] 06-09-2025 09:53-0400 Systolic blood pressure 122 mm[Hg] Injection Wstr Work Phone: [facility] 06-05-2025 14:37-0400 Body mass index (BMI) [Ratio] 25.84 kg/m2 Arabella Tiffanie MANAGER DAIRY[employer]OFF[employer] MACH[employer]ES SALES REPRESENTATIVE Work Phone: [facility] 06-05-2025 14:37-0400 Body weight 74.84 kg Arabella BradfordTiffanie MANAGER DAIRY.OFFICE MACH[employer]ES SALES REPRESENTATIVE Work Phone: [facility] 06-05-2025 14:37-0400 Diastolic blood pressure 82 mm[Hg] Arabella Tiffanie MANAGER DAIRY.OFFICE MACHINES SALES REPRESENTATIVE Work Phone: [facility] 06-05-2025 14:37-0400 Heart rate 84 /min Arabella Tiffanie MANAGER DAIRY.OFFICE MACHINES SALES REPRESENTATIVE Work Phone: [facility] 06-05-2025 14:37-0400 Respiratory rate 12 /min Arabella Tiffanie MANAGER DAIRY.OFFICE MACH[employer]ES SALES REPRESENTATIVE Work Phone: [facility] 06-05-2025 14:37-0400 SaO2% (BldA) [Mass fraction] 94 % Arabella Tiffanie MANAGER DAIRY.OFFICE MACH[employer]ES SALES REPRESENTATIVE Work Phone: [facility] 06-05-2025 14:37-0400 Systolic blood pressure 124 mm[Hg] Arabella Tiffanie MANAGER DAIRY.OFFICE MACH[employer]ES SALES REPRESENTATIVE Work Phone: [facility] 05-30-2025 12:49-0400 Body mass index (BMI) [Ratio] 25.84 kg/m2 Arabella Tiffanie MANAGER DAIRY.OFFICE MACH[employer]ES SALES REPRESENTATIVE Work Phone: [facility] 05-30-2025 12:49-0400 Body weight 74.84 kg Arabella Tiffanie MANAGER DAIRY.[employer]ACH[employer] SALES REPRESENTATIVE Work Phone: [facility] 05-30-2025 12:49-0400 Diastolic blood pressure 74 mm[Hg] Arabella Tiffanie MANAGER DAIRY.OFF[employer] MACH[employer]ES SALES REPRESENTATIVE Work Phone: [facility] 05-30-2025 12:49-0400 Heart rate 74 /min Arabella Tiffanie MANAGER DAIRY.OFF[employer] MACH[employer]ES SALES REPRESENTATIVE Work Phone: [facility] 05-30-2025 12:49-0400 Respiratory rate 12 /min Arabella Tiffanie MANAGER DAIRY.OFFICE MACH[employer]ES SALES REPRESENTATIVE Work Phone: [facility] 05-30-2025 12:49-0400 SaO2% (BldA) [Mass fraction] 98 % Arabella Tiffanie MANAGER DAIRY.OFFICE MACH[employer]ES SALES REPRESENTATIVE Work Phone: [facility] 05-30-2025 12:49-0400 Systolic blood pressure 116 mm[Hg] Arabella Tiffanie MANAGER DAIRY.OFFICE MACHINES SALES REPRESENTATIVE Work Phone: [facility] 05-26-2025 09:47-0400 Diastolic blood pressure 54 mm[Hg] Injection Wstr Work Phone: [facility] 05-26-2025 09:47-0400 Heart rate 84 /min Injection Wstr Work Phone: [facility] 05-26-2025 09:47-0400 Respiratory rate 12 /min Injection Wstr Work Phone: [facility] 05-26-2025 09:47-0400 SaO2% (BldA) [Mass fraction] 97 % Injection Wstr Work Phone: [facility] 05-26-2025 09:47-0400 Systolic blood pressure 100 mm[Hg] Injection Wstr Work Phone: [facility] 05-25-2025 14:48-0400 Body mass index (BMI) [Ratio] 25.9 kg/m2 [facility] Tiffanie MANAGER DAIRY.OFFICE MACHINES SALES REPRESENTATIVE Work Phone: [facility] 05-25-2025 14:48-0400 Body weight 75 kg Arabella Tiffanie MANAGER DAIRY.OFFICE MACHINES SALES REPRESENTATIVE Work Phone: [facility] 05-25-2025 14:48-0400 Diastolic blood pressure 56 mm[Hg] [facility] Tiffanie MANAGER DAIRY.OFFICE MACHINES SALES REPRESENTATIVE Work Phone: [facility] 05-25-2025 14:48-0400 Heart rate 79 /min [facility] Tiffanie MANAGER DAIRY.OFFICE MACHINES SALES REPRESENTATIVE Work Phone: [facility] 05-25-2025 14:48-0400 Respiratory rate 16 /min [facility] Tiffanie MANAGER DAIRY.OFFICE MACHINES SALES REPRESENTATIVE Work Phone: [facility] 05-25-2025 14:48-0400 Systolic blood pressure 104 mm[Hg] [facility] Tiffanie MANAGER DAIRY.OFFICE MACHINES SALES REPRESENTATIVE Work Phone: [facility] 05-11-2025 09:58-0400 Body temperature 98.01 [degF] Injection Wstr Work Phone: [facility] 05-11-2025 09:58-0400 Diastolic blood pressure 72 mm[Hg] Injection Wstr Work Phone: [facility] 05-11-2025 09:58-0400 Heart rate 74 /min Injection Wstr Work Phone: [facility] 05-11-2025 09:58-0400 Respiratory rate 12 /min Injection Wstr Work Phone: [facility] 05-11-2025 09:58-0400 SaO2% (BldA) [Mass fraction] 94 % Injection Wstr Work Phone: [facility] 05-11-2025 09:58-0400 Systolic blood pressure 116 mm[Hg] Injection Wstr Work Phone: [facility] 04-28-2025 09:49-0400 Diastolic blood pressure 49 mm[Hg] Injection Wstr Work Phone: [facility] 04-28-2025 09:49-0400 Heart rate 78 /min Injection Wstr Work Phone: [facility] 04-28-2025 09:49-0400 Respiratory rate 12 /min Injection Wstr Work Phone: [facility] 04-28-2025 09:49-0400 SaO2% (BldA) [Mass fraction] 95 % Injection Wstr Work Phone: [facility] 04-28-2025 09:49-0400 Systolic blood pressure 97 mm[Hg] Injection Wstr Work Phone: [facility] 04-07-2025 11:21-0400 Body height 170.2 cm Iram Johnson MANAGER DAIRY.[employer] SALES REPRESENTATIVE Work Phone: [facility] 04-07-2025 11:21-0400 Body mass index (BMI) [Ratio] 27.1 kg/m2 Iram Johnson MANAGER DAIRY.[employer]ACH[employer] SALES REPRESENTATIVE Work Phone: [facility] 04-07-2025 11:21-0400 Body weight 78.47 kg Iram Johnson MANAGER DAIRY.[employer]ACH[employer] SALES REPRESENTATIVE Work Phone: [facility] 04-07-2025 11:21-0400 Diastolic blood pressure 68 mm[Hg] Iram Johnson MANAGER DAIRY.[employer]ICE [employer]ACH[employer] SALES REPRESENTATIVE Work Phone: [facility] 04-07-2025 11:21-0400 Heart rate 83 /min Iram Johnson MANAGER DAIRY.[employer]ICE [employer]ACH[employer] SALES REPRESENTATIVE Work Phone: [facility] 04-07-2025 11:21-0400 Systolic blood pressure 130 mm[Hg] Iram Johnson MANAGER DAIRY.OFFICE MACH[employer] SALES REPRESENTATIVE Work Phone: [facility] 03-27-2025 14:49-0400 Body mass index (BMI) [Ratio] 27.28 kg/m2 Ronaldo Pleitez MD Work Phone: [facility] 03-27-2025 14:49-0400 Body weight 79 kg Ronaldo Pleitez MD Work Phone: [facility] 03-27-2025 14:49-0400 Diastolic blood pressure 58 mm[Hg] Ronaldo Pleitez MD Work Phone: [facility] 03-27-2025 14:49-0400 Heart rate 68 /min Ronaldo Pleitez MD Work Phone: [facility] 03-27-2025 14:49-0400 Respiratory rate 16 /min Ronaldo Pleitez MD Work Phone: [facility] 03-27-2025 14:49-0400 Systolic blood pressure 106 mm[Hg] Ronaldo Pleitez MD Work Phone: [facility] 03-17-2025 14:16-0400 Body temperature 97.59 [degF] Injection Wstr Work Phone: [facility] 03-17-2025 14:16-0400 Diastolic blood pressure 57 mm[Hg] Injection Wstr Work Phone: [facility] 03-17-2025 14:16-0400 Heart rate 55 /min Injection Wstr Work Phone: [facility] 03-17-2025 14:16-0400 Respiratory rate 12 /min Injection Wstr Work Phone: [facility] 03-17-2025 14:16-0400 SaO2% (BldA) [Mass fraction] 95 % Injection Wstr Work Phone: [facility] 03-17-2025 14:16-0400 Systolic blood pressure 116 mm[Hg] Injection Wstr Work Phone: [facility] 02-17-2025 09:55-0400 Body temperature 97.7 [degF] Injection Wstr Work Phone: [facility] 02-17-2025 09:55-0400 Diastolic blood pressure 57 mm[Hg] Injection Wstr Work Phone: [facility] Comment on above: DENIES ANY DIZZINESS 02-17-2025 09:55-0400 Heart rate 79 /min Injection Wstr Work Phone: [facility] 02-17-2025 09:55-0400 Respiratory rate 12 /min Injection Wstr Work Phone: [facility] 02-17-2025 09:55-0400 SaO2% (BldA) [Mass fraction] 93 % Injection Wstr Work Phone: [facility] 02-17-2025 09:55-0400 Systolic blood pressure 95 mm[Hg] Injection Wstr Work Phone: [facility] Comment on above: DENIES ANY DIZZINESS 02-03-2025 10:32-0400 Diastolic blood pressure 65 mm[Hg] Injection Wstr Work Phone: [facility] 02-03-2025 10:32-0400 Heart rate 83 /min Injection Wstr Work Phone: [facility] 02-03-2025 10:32-0400 Respiratory rate 12 /min Injection Wstr Work Phone: [facility] 02-03-2025 10:32-0400 SaO2% (BldA) [Mass fraction] 94 % Injection Wstr Work Phone: [facility] 02-03-2025 10:32-0400 Systolic blood pressure 100 mm[Hg] Injection Wstr Work Phone: [facility] 01-31-2025 10:54-0400 Body mass index (BMI) [Ratio] 26.55 kg/m2 Arabella Tiffanie MANAGER DAIRY.[employer] SALES REPRESENTATIVE Work Phone: [facility] 01-31-2025 10:54-0400 Body weight 76.9 kg Arabella Tiffanie MANAGER DAIRY.[employer] SALES REPRESENTATIVE Work Phone: [facility] 01-31-2025 10:54-0400 Diastolic blood pressure 78 mm[Hg] Arabella Tiffanie MANAGER DAIRY.[employer]ACH[employer] SALES REPRESENTATIVE Work Phone: [facility] 01-31-2025 10:54-0400 Heart rate 78 /min Arabella Tiffanie MANAGER DAIRY.[employer]ACH[employer] SALES REPRESENTATIVE Work Phone: [facility] 01-31-2025 10:54-0400 Respiratory rate 14 /min Arabella Tiffanie MANAGER DAIRY.[employer]ACH[employer] SALES REPRESENTATIVE Work Phone: [facility] 01-31-2025 10:54-0400 SaO2% (BldA) [Mass fraction] 98 % Arabella Moreno MANAGER DAIRY.OFF[employer]ACH[employer] SALES REPRESENTATIVE Work Phone: [facility] 01-31-2025 10:54-0400 Systolic blood pressure 126 mm[Hg] Arabella Moreno MANAGER DAIRY.[employer]ACH[employer] SALES REPRESENTATIVE Work Phone: [facility] 01-20-2025 10:36-0400 Body temperature 98.2 [degF] Injection Wstr Work Phone: [facility] 01-20-2025 10:36-0400 Diastolic blood pressure 69 mm[Hg] Injection Wstr Work Phone: [facility] 01-20-2025 10:36-0400 Heart rate 83 /min Injection Wstr Work Phone: [facility] 01-20-2025 10:36-0400 SaO2% (BldA) [Mass fraction] 94 % Injection Wstr Work Phone: [facility] 01-20-2025 10:36-0400 Systolic blood pressure 112 mm[Hg] Injection Wstr Work Phone: [facility] 01-06-2025 10:35-0500 Body mass index (BMI) [Ratio] 26.86 kg/m2 Baljinder Masci DO Work Phone: [facility] 01-06-2025 10:35-0500 Body temperature 97.2 [degF] Baljinder Masci DO Work Phone: [facility] 01-06-2025 10:35-0500 Body weight 77.79 kg Baljinder Masci DO Work Phone: [facility] 01-06-2025 10:35-0500 Diastolic blood pressure 70 mm[Hg] Baljinder Masci DO Work Phone: [facility] 01-06-2025 10:35-0500 Heart rate 83 /min Baljinder Masci DO Work Phone: [facility] 01-06-2025 10:35-0500 SaO2% (BldA) [Mass fraction] 93 % Baljinder Galloway DO Work Phone: [facility] 01-06-2025 10:35-0500 Systolic blood pressure 115 mm[Hg] Baljinder Galloway DO Work Phone: [facility] 12-23-2024 10:02-0500 Body mass index (BMI) [Ratio] 26.94 kg/m2 Injection Wstr Work Phone: [facility] 12-23-2024 10:02-0500 Body weight 78.02 kg Injection Wstr Work Phone: [facility] 12-23-2024 10:02-0500 Diastolic blood pressure 64 mm[Hg] Injection Wstr Work Phone: [facility] 12-23-2024 10:02-0500 Heart rate 82 /min Injection Wstr Work Phone: [facility] 12-23-2024 10:02-0500 Respiratory rate 12 /min Injection Wstr Work Phone: [facility] 12-23-2024 10:02-0500 SaO2% (BldA) [Mass fraction] 92 % Injection Wstr Work Phone: [facility] 12-23-2024 10:02-0500 Systolic blood pressure 106 mm[Hg] Injection Wstr Work Phone: [facility] 12-09-2024 11:32-0500 Body mass index (BMI) [Ratio] 26.94 kg/m2 Injection Wstr Work Phone: [facility] 12-09-2024 11:32-0500 Body temperature 98.1 [degF] Injection Wstr Work Phone: [facility] 12-09-2024 11:32-0500 Body weight 78.02 kg Injection Wstr Work Phone: [facility] 12-09-2024 11:32-0500 Diastolic blood pressure 68 mm[Hg] Injection Wstr Work Phone: [facility] 12-09-2024 11:32-0500 Heart rate 87 /min Injection Wstr Work Phone: [facility] 12-09-2024 11:32-0500 SaO2% (BldA) [Mass fraction] 94 % Injection Wstr Work Phone: [facility] 12-09-2024 11:32-0500 Systolic blood pressure 108 mm[Hg] Injection Wstr Work Phone: [facility] 11-24-2024 13:07-0500 Body mass index (BMI) [Ratio] 26.94 kg/m2 Injection Wstr Work Phone: [facility] 11-24-2024 13:07-0500 Body temperature 97.7 [degF] Injection Wstr Work Phone: [facility] 11-24-2024 13:07-0500 Body weight 78.02 kg Injection Wstr Work Phone: [facility] 11-24-2024 13:07-0500 Diastolic blood pressure 80 mm[Hg] Injection Wstr Work Phone: [facility] 11-24-2024 13:07-0500 Heart rate 83 /min Injection Wstr Work Phone: [facility] 11-24-2024 13:07-0500 Respiratory rate 12 /min Injection Wstr Work Phone: [facility] 11-24-2024 13:07-0500 SaO2% (BldA) [Mass fraction] 98 % Injection Wstr Work Phone: [facility] 11-24-2024 13:07-0500 Systolic blood pressure 119 mm[Hg] Injection Wstr Work Phone: [facility] 10-11-2024 10:06-0500 Body mass index (BMI) [Ratio] 27.41 kg/m2 Baljinder Galloway DO Work Phone: [facility] 10-11-2024 10:06-0500 Body temperature 98.49 [degF] Baljinder Galloway DO Work Phone: [facility] 10-11-2024 10:06-0500 Body weight 79.38 kg Baljinder Masci DO Work Phone: [facility] 10-11-2024 10:06-0500 Diastolic blood pressure 63 mm[Hg] Baljinder Robbinsi DO Work Phone: [facility] 10-11-2024 10:06-0500 Heart rate 79 /min Baljinder Robbinsi DO Work Phone: [facility] 10-11-2024 10:06-0500 SaO2% (BldA) [Mass fraction] 92 % Baljinder Robbinsi DO Work Phone: [facility] 10-11-2024 10:06-0500 Systolic blood pressure 102 mm[Hg] Baljinder Robbinsi DO Work Phone: [facility] 09-27-2024 11:02-0500 Body height 170.2 cm Iram Johnson MANAGER DAIRY.[employer] SALES REPRESENTATIVE Work Phone: [facility] 09-27-2024 11:02-0500 Body mass index (BMI) [Ratio] 26.94 kg/m2 Iram Johnson MANAGER DAIRY.[employer] SALES REPRESENTATIVE Work Phone: [facility] 09-27-2024 11:02-0500 Body weight 78.02 kg Iram Johnson MANAGER DAIRY.[employer] SALES REPRESENTATIVE Work Phone: [facility] 09-27-2024 11:02-0500 Diastolic blood pressure 58 mm[Hg] Iram Johnson MANAGER DAIRY.[employer]ACH[employer] SALES REPRESENTATIVE Work Phone: [facility] 09-27-2024 11:02-0500 Heart rate 62 /min Iram Johnson MANAGER DAIRY.[employer] SALES REPRESENTATIVE Work Phone: [facility] 09-27-2024 11:02-0500 Systolic blood pressure 116 mm[Hg] Iram Johnson MANAGER DAIRY.[employer] SALES REPRESENTATIVE Work Phone: [facility] 09-15-2024 11:34-0500 Body mass index (BMI) [Ratio] 26.94 kg/m2 Lauri Cook Work Phone: [facility] 09-15-2024 11:34-0500 Body temperature 98.2 [degF] Lauri Cook Work Phone: [facility] 09-15-2024 11:34-0500 Body weight 78.02 kg Lauri Cook Work Phone: [facility] 09-15-2024 11:34-0500 Diastolic blood pressure 70 mm[Hg] Lauri Cook Work Phone: [facility] 09-15-2024 11:34-0500 Heart rate 77 /min Lauri Cook Work Phone: [facility] 09-15-2024 11:34-0500 SaO2% (BldA) [Mass fraction] 94 % Lauri Cook Work Phone: [facility] 09-15-2024 11:34-0500 Systolic blood pressure 109 mm[Hg] Lauri Cook Work Phone: [facility] 07-29-2024 11:11-0400 Body mass index (BMI) [Ratio] 26.83 kg/m2 Ronaldo Pleitez MD Work Phone: [facility] 07-29-2024 11:11-0400 Body temperature 98.4 [degF] Ronaldo Pleitez MD Work Phone: [facility] 07-29-2024 11:11-0400 Body weight 77.7 kg Ronaldo Pleitez MD Work Phone: [facility] 07-29-2024 11:11-0400 Diastolic blood pressure 70 mm[Hg] Ronaldo Pleitez MD Work Phone: [facility] 07-29-2024 11:11-0400 Heart rate 80 /min Ronaldo Pleitez MD Work Phone: [facility] 07-29-2024 11:11-0400 Respiratory rate 18 /min Ronaldo Pleitez MD Work Phone: [facility] 07-29-2024 11:11-0400 SaO2% (BldA) [Mass fraction] 97 % Ronaldo Pleitez MD Work Phone: [facility] 07-29-2024 11:11-0400 Systolic blood pressure 118 mm[Hg] Ronaldo Pleitez MD Work Phone: [facility] 06-16-2024 08:51-0400 Body mass index (BMI) [Ratio] 27.1 kg/m2 Baljinder Rosendoi DO Work Phone: [facility] 06-16-2024 08:51-0400 Body temperature 98.1 [degF] Baljinder Masci DO Work Phone: [facility] 06-16-2024 08:51-0400 Body weight 78.47 kg Baljinder Masci DO Work Phone: [facility] 06-16-2024 08:51-0400 Diastolic blood pressure 55 mm[Hg] Baljinder Rosendoi DO Work Phone: [facility] 06-16-2024 08:51-0400 Heart rate 81 /min Baljinder Rosendoi DO Work Phone: [facility] 06-16-2024 08:51-0400 SaO2% (BldA) [Mass fraction] 96 % Baljinder Rosendoi DO Work Phone: [facility] 06-16-2024 08:51-0400 Systolic blood pressure 102 mm[Hg] Baljinder Rosendoi DO Work Phone: [facility] 03-17-2024 11:42-0400 Body mass index (BMI) [Ratio] 26.08 kg/m2 Baljinder Masci DO Work Phone: [facility] 03-17-2024 11:42-0400 Body temperature 98.01 [degF] Baljinder Masci DO Work Phone: [facility] 03-17-2024 11:42-0400 Body weight 75.52 kg Baljinder Masci DO Work Phone: [facility] 03-17-2024 11:42-0400 Diastolic blood pressure 58 mm[Hg] Baljinder Rosendoi DO Work Phone: [facility] 03-17-2024 11:42-0400 Heart rate 76 /min Baljinder Rosendoi DO Work Phone: [facility] 03-17-2024 11:42-0400 SaO2% (BldA) [Mass fraction] 95 % Baljinder Galloway DO Work Phone: [facility] 03-17-2024 11:42-0400 Systolic blood pressure 102 mm[Hg] Baljinder Galloway DO Work Phone: [facility] 02-29-2024 14:10-0400 Body height 170.2 cm Iram Johnson MANAGER DAIRY.[employer] SALES REPRESENTATIVE Work Phone: [facility] 02-29-2024 14:10-0400 Body mass index (BMI) [Ratio] 25.53 kg/m2 Iram Johnson MANAGER DAIRY.[employer]ACH[employer] SALES REPRESENTATIVE Work Phone: [facility] 02-29-2024 14:10-0400 Body weight 73.94 kg rIam Johnson MANAGER DAIRY.[employer]ACH[employer] SALES REPRESENTATIVE Work Phone: [facility] 02-29-2024 14:10-0400 Diastolic blood pressure 78 mm[Hg] Iram Johnson MANAGER DAIRY.[employer]ACH[employer] SALES REPRESENTATIVE Work Phone: [facility] 02-29-2024 14:10-0400 Heart rate 62 /min Iram Johnson MANAGER DAIRY.[employer]ACH[employer] SALES REPRESENTATIVE Work Phone: [facility] 02-29-2024 14:10-0400 Systolic blood pressure 140 mm[Hg] Iram Johnson MANAGER DAIRY.[employer]ACH[employer] SALES REPRESENTATIVE Work Phone: [facility] 01-22-2024 10:57-0400 Body height 168.9 cm Ronaldo Pleitez MD Work Phone: [facility] 01-22-2024 10:57-0400 Body weight 75.43 kg Ronaldo Pleitez MD Work Phone: [facility] 01-22-2024 10:57-0400 Diastolic blood pressure 64 mm[Hg] Ronaldo Pleitez MD Work Phone: [facility] 01-22-2024 10:57-0400 Heart rate 68 /min Ronaldo Pleitez MD Work Phone: [facility] 01-22-2024 10:57-0400 Respiratory rate 18 /min Ronaldo Pleitez MD Work Phone: [facility] 01-22-2024 10:57-0400 Systolic blood pressure 118 mm[Hg] Ronaldo Pleitez MD Work Phone: [facility] 12-24-2023 11:12-0500 Body temperature 98.2 [degF] Baljinder Masci DO Work Phone: [facility] 12-24-2023 11:12-0500 Body weight 73.71 kg Baljinder Masci DO Work Phone: [facility] 12-24-2023 11:12-0500 Diastolic blood pressure 84 mm[Hg] Baljinder Masci DO Work Phone: [facility] 12-24-2023 11:12-0500 Heart rate 65 /min Baljinder Masci DO Work Phone: [facility] 12-24-2023 11:12-0500 SaO2% (BldA) [Mass fraction] 97 % Baljinder Masci DO Work Phone: [facility] 12-24-2023 11:12-0500 Systolic blood pressure 125 mm[Hg] Baljinder Masci DO Work Phone: [facility] 12-23-2023 11:07-0500 Body temperature 97.2 [degF] Ronaldo Pleitez MD Work Phone: [facility] 12-23-2023 11:07-0500 Body weight 73.94 kg Ronaldo Pleitez MD Work Phone: [facility] 12-23-2023 11:07-0500 Diastolic blood pressure 58 mm[Hg] Ronaldo Pleitez MD Work Phone: [facility] 12-23-2023 11:07-0500 Heart rate 60 /min Ronaldo Pleitez MD Work Phone: [facility] 12-23-2023 11:07-0500 Respiratory rate 20 /min Ronaldo Pleitez MD Work Phone: [facility] 12-23-2023 11:07-0500 Systolic blood pressure 100 mm[Hg] Ronaldo Pleitez MD Work Phone: [facility] 09-30-2023 09:57-0500 Body temperature 98.49 [degF] Baljinder Masci DO Work Phone: [facility] 09-30-2023 09:57-0500 Body weight 73.03 kg Baljinder Masci DO Work Phone: [facility] 09-30-2023 09:57-0500 Diastolic blood pressure 56 mm[Hg] Baljinder Masci DO Work Phone: [facility] 09-30-2023 09:57-0500 Heart rate 59 /min Baljinder Masci DO Work Phone: [facility] 09-30-2023 09:57-0500 Respiratory rate 16 /min Baljinder Masci DO Work Phone: [facility] 09-30-2023 09:57-0500 SaO2% (BldA) [Mass fraction] 99 % Baljinder Masci DO Work Phone: [facility] 09-30-2023 09:57-0500 Systolic blood pressure 107 mm[Hg] Baljinder Masci DO Work Phone: [facility] 07-24-2023 10:06-0400 Body weight 73.48 kg Arabella Older MANAGER DAIRY.[employer]ACH[employer] SALES REPRESENTATIVE Work Phone: [facility] 07-24-2023 10:06-0400 Diastolic blood pressure 72 mm[Hg] Arabella Older MANAGER DAIRY.OFFICE MACH[employer] SALES REPRESENTATIVE Work Phone: [facility] 07-24-2023 10:06-0400 Heart rate 58 /min Arabella Older MANAGER DAIRY.OFFICE MACH[employer] SALES REPRESENTATIVE Work Phone: [facility] 07-24-2023 10:06-0400 Respiratory rate 16 /min Arabella Older MANAGER DAIRY.OFFICE MACH[employer]ES SALES REPRESENTATIVE Work Phone: [facility] 07-24-2023 10:06-0400 SaO2% (BldA) [Mass fraction] 97 % Arabella Older MANAGER DAIRY.OFFICE MACH[employer]ES SALES REPRESENTATIVE Work Phone: [facility] 07-24-2023 10:06-0400 Systolic blood pressure 124 mm[Hg] Arabella Older MANAGER DAIRY.OFFICE MACH[employer]ES SALES REPRESENTATIVE Work Phone: [facility] 07-23-2023 10:22-0400 Body height 170.2 cm Iram Johnson MANAGER DAIRY.OFFICE MACH[employer]ES SALES REPRESENTATIVE Work Phone: [facility] 07-23-2023 10:22-0400 Body weight 73.94 kg Iram Johnson MANAGER DAIRY.OFFICE MACH[employer]ES SALES REPRESENTATIVE Work Phone: [facility] 07-23-2023 10:22-0400 Diastolic blood pressure 60 mm[Hg] Iram Johnson MANAGER DAIRY.OFFICE MACH[employer]ES SALES REPRESENTATIVE Work Phone: [facility] 07-23-2023 10:22-0400 Heart rate 69 /min Iram Johnson MANAGER DAIRY.OFFICE MACH[employer]ES SALES REPRESENTATIVE Work Phone: [facility] 07-23-2023 10:22-0400 Systolic blood pressure 110 mm[Hg] Iram Johnson MANAGER DAIRY.OFFICE MACH[employer]ES SALES REPRESENTATIVE Work Phone: [facility] 05-22-2023 12:20-0400 Body temperature 97.4 [degF] Dr. Pedro Diaz Work Phone: [facility] 05-22-2023 12:20-0400 Diastolic blood pressure 49 mm[Hg] Dr. Pedro Diaz Work Phone: [facility] 05-22-2023 12:20-0400 Heart rate 59 /min Dr. Pedro Diaz Work Phone: [facility] 05-22-2023 12:20-0400 Respiratory rate 16 /min Dr. Pedro Diaz Work Phone: [facility] 05-22-2023 12:20-0400 SaO2% (BldA) [Mass fraction] 93 % Dr. Pedro Diaz Work Phone: [facility] 05-22-2023 12:20-0400 Systolic blood pressure 127 mm[Hg] Dr. Pedro Diaz Work Phone: [facility] 05-22-2023 09:15-0400 Body height 170.[address] Pedro Diaz Work Phone: [facility] 05-18-2023 16:30-0400 Body temperature 97.9 [degF] Dr. Pedro Diaz Work Phone: [facility] 05-18-2023 16:30-0400 Diastolic blood pressure 74 mm[Hg] Dr. Pedro Diaz Work Phone: [facility] 05-18-2023 16:30-0400 Heart rate 54 /min Dr. Pedro Diaz Work Phone: 3(783)[id number] [place] [address] 05-18-2023 16:30-0400 Respiratory rate 18 /min Dr. Pedro Diaz Work Phone: 9(145)[phone] [place] [address] 05-18-2023 16:30-0400 SaO2% (BldA) [Mass fraction] 96 % Dr. Pedro Diaz Work Phone: [facility] 05-18-2023 16:30-0400 Systolic blood pressure 125 mm[Hg] Dr. Pedro Diaz Work Phone: 0(278)[phone] [place] [address] 05-18-2023 09:43-0400 Diastolic blood pressure 81 mm[Hg] Dr. Pedro Diaz Work Phone: 5(972)[phone] [place] [address] 05-18-2023 09:43-0400 Heart rate 52 /min Dr. Pedro Diaz Work Phone: [facility] 05-18-2023 09:43-0400 Systolic blood pressure 130 mm[Hg] Dr. Pedro Diaz Work Phone: [facility] 05-18-2023 08:45-0400 Body temperature 97.8 [degF] Dr. Pedro Diaz Work Phone: [facility] 05-18-2023 08:45-0400 Respiratory rate 16 /min Dr. Pedro Diaz Work Phone: [facility] 05-18-2023 08:45-0400 SaO2% (BldA) [Mass fraction] 95 % Dr. Pedro Diaz Work Phone: [facility] 05-18-2023 08:00-0400 Body mass index (BMI) [Ratio] 28.5 kg/m2 Dr. Pedro Diaz Work Phone: [facility] 05-18-2023 08:00-0400 Body weight 82.[address] Pedro Diaz Work Phone: [facility] 05-17-2023 03:59-0400 Body mass index (BMI) [Ratio] 28.6 kg/m2 Dr. Pedro Diaz Work Phone: [facility] 05-17-2023 03:59-0400 Body weight [address] Pedro Diaz Work Phone: [facility] 05-16-2023 12:42-0400 Inhaled oxygen flow rate 2 L/min Dr. Pedro Diaz Work Phone: [facility] 05-14-2023 18:22-0400 Body height 170.[address] Pedro Diaz Work Phone: [facility] 05-14-2023 16:25-0400 Body temperature 99.2 [degF] Dr. Ned Dinh Work Phone: [facility] 05-14-2023 16:25-0400 Diastolic blood pressure 59 mm[Hg] Dr. Ned Dinh Work Phone: [facility] 05-14-2023 16:25-0400 Heart rate 60 /min Dr. Ned Dinh Work Phone: [facility] 05-14-2023 16:25-0400 Inhaled oxygen flow rate 2 L/min Dr. Ned Dinh Work Phone: [facility] 05-14-2023 16:25-0400 Respiratory rate 16 /min Dr. Ned Dinh Work Phone: [facility] 05-14-2023 16:25-0400 SaO2% (BldA) [Mass fraction] 98 % Dr. Ned Dinh Work Phone: [facility] 05-14-2023 16:25-0400 Systolic blood pressure 112 mm[Hg] Dr. Ned Dinh Work Phone: [facility] 05-14-2023 12:19-0400 Body mass index (BMI) [Ratio] 28 kg/m2 Dr. Ned Dinh Work Phone: [facility] 05-14-2023 12:19-0400 Body weight 81.[address] Ned Dinh Work Phone: [facility] 05-14-2023 12:15-0400 Body height 170.[address] Ned Dinh Work Phone: [facility] 05-13-2023 14:04-0400 Body temperature 97.59 [degF] Treatment Wstr Work Phone: [facility] 05-13-2023 14:04-0400 Diastolic blood pressure 64 mm[Hg] Treatment Wstr Work Phone: [facility] 05-13-2023 14:04-0400 Heart rate 62 /min Treatment Wstr Work Phone: [facility] 05-13-2023 14:04-0400 Respiratory rate 16 /min Treatment Wstr Work Phone: [facility] 05-13-2023 14:04-0400 SaO2% (BldA) [Mass fraction] 97 % Treatment Wstr Work Phone: [facility] 05-13-2023 14:04-0400 Systolic blood pressure 140 mm[Hg] Treatment Wstr Work Phone: [facility] 05-11-2023 16:14-0400 Body height 170.2 cm Shorty Faith MD Work Phone: [facility] 05-11-2023 16:14-0400 Body temperature 97.59 [degF] Shorty Faith MD Work Phone: [facility] 05-11-2023 16:14-0400 Body weight 83.92 kg Shorty Faith MD Work Phone: [facility] 05-11-2023 16:14-0400 Diastolic blood pressure 56 mm[Hg] Shorty Faith MD Work Phone: [facility] 05-11-2023 16:14-0400 Heart rate 60 /min Shorty Faith MD Work Phone: [facility] 05-11-2023 16:14-0400 SaO2% (BldA) [Mass fraction] 98 % Shorty Faith MD Work Phone: [facility] 05-11-2023 16:14-0400 Systolic blood pressure 110 mm[Hg] Shorty Faith MD Work Phone: [facility] 05-11-2023 15:12-0400 Body temperature 98.1 [degF] Treatment Wstr Work Phone: [facility] 05-11-2023 15:12-0400 Diastolic blood pressure 42 mm[Hg] Treatment Wstr Work Phone: [facility] 05-11-2023 15:12-0400 Heart rate 60 /min Treatment Wstr Work Phone: [facility] 05-11-2023 15:12-0400 Respiratory rate 16 /min Treatment Wstr Work Phone: [facility] 05-11-2023 15:12-0400 SaO2% (BldA) [Mass fraction] 95 % Treatment Wstr Work Phone: [facility] 05-11-2023 15:12-0400 Systolic blood pressure 116 mm[Hg] Treatment Wstr Work Phone: [facility] 05-08-2023 14:00-0400 Body temperature 97.2 [degF] Treatment Wstr Work Phone: [facility] 05-08-2023 14:00-0400 Diastolic blood pressure 74 mm[Hg] Treatment Wstr Work Phone: [facility] 05-08-2023 14:00-0400 Heart rate 64 /min Treatment Wstr Work Phone: [facility] 05-08-2023 14:00-0400 Respiratory rate 16 /min Treatment Wstr Work Phone: [facility] 05-08-2023 14:00-0400 SaO2% (BldA) [Mass fraction] 97 % Treatment Wstr Work Phone: [facility] 05-08-2023 14:00-0400 Systolic blood pressure 151 mm[Hg] Treatment Wstr Work Phone: [facility] 05-07-2023 14:03-0400 Body temperature 97.7 [degF] Treatment Wstr Work Phone: [facility] 05-07-2023 14:03-0400 Diastolic blood pressure 59 mm[Hg] Treatment Wstr Work Phone: [facility] 05-07-2023 14:03-0400 Heart rate 60 /min Treatment Wstr Work Phone: [facility] 05-07-2023 14:03-0400 SaO2% (BldA) [Mass fraction] 96 % Treatment Wstr Work Phone: [facility] 05-07-2023 14:03-0400 Systolic blood pressure 126 mm[Hg] Treatment Wstr Work Phone: [facility] 05-05-2023 12:56-0400 Body temperature 97.59 [degF] Treatment Wstr Work Phone: [facility] 05-05-2023 12:56-0400 Body weight 84.14 kg Treatment Wstr Work Phone: [facility] 05-05-2023 12:56-0400 Diastolic blood pressure 54 mm[Hg] Treatment Wstr Work Phone: [facility] 05-05-2023 12:56-0400 Heart rate 60 /min Treatment Wstr Work Phone: [facility] 05-05-2023 12:56-0400 SaO2% (BldA) [Mass fraction] 93 % Treatment Wstr Work Phone: [facility] 05-05-2023 12:56-0400 Systolic blood pressure 120 mm[Hg] Treatment Wstr Work Phone: [facility] 05-04-2023 14:04-0400 Body temperature 98.4 [degF] Treatment Wstr Work Phone: [facility] 05-04-2023 14:04-0400 Diastolic blood pressure 58 mm[Hg] Treatment Wstr Work Phone: [facility] 05-04-2023 14:04-0400 Heart rate 56 /min Treatment Wstr Work Phone: [facility] 05-04-2023 14:04-0400 Respiratory rate 16 /min Treatment Wstr Work Phone: [facility] 05-04-2023 14:04-0400 Systolic blood pressure 147 mm[Hg] Treatment Wstr Work Phone: [facility] 05-01-2023 12:41-0400 Body temperature 97.39 [degF] David Cervantes MANAGER DAIR[employer] SALES REPRESENTATIVE Work Phone: [facility] 05-01-2023 12:41-0400 Body weight 83.23 kg David Cervantes MANAGER DAIRY[employer] SALES REPRESENTATIVE Work Phone: [facility] 05-01-2023 12:41-0400 Diastolic blood pressure 52 mm[Hg] David Cervantes MANAGER DAIRY[employer] SALES REPRESENTATIVE Work Phone: [facility] 05-01-2023 12:41-0400 Heart rate 61 /min David Cervantes MANAGER DAIRY[employer] SALES REPRESENTATIVE Work Phone: [facility] 05-01-2023 12:41-0400 SaO2% (BldA) [Mass fraction] 97 % David Cervantes MANAGER DAIRY[employer] SALES REPRESENTATIVE Work Phone: [facility] 05-01-2023 12:41-0400 Systolic blood pressure 111 mm[Hg] David Cervantes MANAGER DAIRY[employer] SALES REPRESENTATIVE Work Phone: [facility] 04-20-2023 13:30-0400 Body height 170.2 cm Israel Pruitt DO Work Phone: [facility] 04-20-2023 13:30-0400 Body temperature 97 [degF] Israel Pruitt DO Work Phone: [facility] 04-20-2023 13:30-0400 Body weight 82.01 kg Israel Pruitt DO Work Phone: [facility] 04-20-2023 13:30-0400 Diastolic blood pressure 60 mm[Hg] Israel Pruitt DO Work Phone: [facility] 04-20-2023 13:30-0400 Heart rate 61 /min Israel Pruitt DO Work Phone: [facility] 04-20-2023 13:30-0400 SaO2% (BldA) [Mass fraction] 97 % Israel Pruitt DO Work Phone: [facility] 04-20-2023 13:30-0400 Systolic blood pressure 102 mm[Hg] Israel Pruitt DO Work Phone: [facility] 04-15-2023 14:00-0400 Body temperature 97.11 [degF] Treatment Wstr Work Phone: [facility] 04-15-2023 14:00-0400 Diastolic blood pressure 62 mm[Hg] Treatment Wstr Work Phone: [facility] 04-15-2023 14:00-0400 Heart rate 58 /min Treatment Wstr Work Phone: [facility] 04-15-2023 14:00-0400 Respiratory rate 18 /min Treatment Wstr Work Phone: [facility] 04-15-2023 14:00-0400 SaO2% (BldA) [Mass fraction] 95 % Treatment Wstr Work Phone: [facility] 04-15-2023 14:00-0400 Systolic blood pressure 135 mm[Hg] Treatment Wstr Work Phone: [facility] 04-14-2023 09:00-0400 Body temperature 97.59 [degF] Treatment Wstr Work Phone: [facility] 04-14-2023 09:00-0400 Diastolic blood pressure 69 mm[Hg] Treatment Wstr Work Phone: [facility] 04-14-2023 09:00-0400 Heart rate 77 /min Treatment Wstr Work Phone: [facility] 04-14-2023 09:00-0400 Respiratory rate 18 /min Treatment Wstr Work Phone: [facility] 04-14-2023 09:00-0400 SaO2% (BldA) [Mass fraction] 95 % Treatment Wstr Work Phone: [facility] 04-14-2023 09:00-0400 Systolic blood pressure 139 mm[Hg] Treatment Wstr Work Phone: [facility] 04-13-2023 15:42-0400 Body mass index (BMI) [Ratio] 27.6 kg/m2 Dr. Ned Dinh Work Phone: [facility] 04-13-2023 15:42-0400 Body weight 79.[address] Ned Dinh Work Phone: [facility] 04-13-2023 15:42-0400 Diastolic blood pressure 58 mm[Hg] Dr. Ned Dinh Work Phone: [facility] 04-13-2023 15:42-0400 Heart rate 59 /min Dr. Ned Dinh Work Phone: [facility] 04-13-2023 15:42-0400 Respiratory rate 16 /min Dr. Ned Dinh Work Phone: [facility] 04-13-2023 15:42-0400 SaO2% (BldA) [Mass fraction] 93 % Dr. Ned Dinh Work Phone: [facility] 04-13-2023 15:42-0400 Systolic blood pressure 108 mm[Hg] Dr. Ned Dinh Work Phone: [facility] 04-13-2023 10:24-0400 SaO2% (BldA) [Mass fraction] 94 % Treatment Wstr Work Phone: [facility] 04-13-2023 10:20-0400 Body temperature 97.7 [degF] Treatment Wstr Work Phone: [facility] 04-13-2023 10:20-0400 Diastolic blood pressure 61 mm[Hg] Treatment Wstr Work Phone: [facility] 04-13-2023 10:20-0400 Heart rate 63 /min Treatment Wstr Work Phone: [facility] 04-13-2023 10:20-0400 Systolic blood pressure 135 mm[Hg] Treatment Wstr Work Phone: [facility] 04-10-2023 10:15-0400 Body temperature 97.59 [degF] Treatment Wstr Work Phone: [facility] 04-10-2023 10:15-0400 Diastolic blood pressure 66 mm[Hg] Treatment Wstr Work Phone: [facility] 04-10-2023 10:15-0400 Heart rate 60 /min Treatment Wstr Work Phone: [facility] 04-10-2023 10:15-0400 Respiratory rate 16 /min Treatment Wstr Work Phone: [facility] 04-10-2023 10:15-0400 SaO2% (BldA) [Mass fraction] 95 % Treatment Wstr Work Phone: [facility] 04-10-2023 10:15-0400 Systolic blood pressure 131 mm[Hg] Treatment Wstr Work Phone: [facility] 04-09-2023 07:00-0400 Body temperature 97 [degF] Treatment Wstr Work Phone: [facility] 04-09-2023 07:00-0400 Body weight 81.87 kg Treatment Wstr Work Phone: [facility] 04-09-2023 07:00-0400 Diastolic blood pressure 64 mm[Hg] Treatment Wstr Work Phone: [facility] 04-09-2023 07:00-0400 Heart rate 59 /min Treatment Wstr Work Phone: [facility] 04-09-2023 07:00-0400 SaO2% (BldA) [Mass fraction] 96 % Treatment Wstr Work Phone: [facility] 04-09-2023 07:00-0400 Systolic blood pressure 136 mm[Hg] Treatment Wstr Work Phone: [facility] 04-08-2023 09:36-0400 Body temperature 97.81 [degF] Treatment Wstr Work Phone: [facility] 04-08-2023 09:36-0400 Body weight 80.97 kg Treatment Wstr Work Phone: [facility] 04-08-2023 09:36-0400 Diastolic blood pressure 65 mm[Hg] Treatment Wstr Work Phone: [facility] 04-08-2023 09:36-0400 Heart rate 59 /min Treatment Wstr Work Phone: [facility] 04-08-2023 09:36-0400 Respiratory rate 18 /min Treatment Wstr Work Phone: [facility] 04-08-2023 09:36-0400 SaO2% (BldA) [Mass fraction] 97 % Treatment Wstr Work Phone: [facility] 04-08-2023 09:36-0400 Systolic blood pressure 123 mm[Hg] Treatment Wstr Work Phone: [facility] 03-25-2023 11:51-0400 Body weight 74.84 kg Israel Tirmonia DO Work Phone: [facility] 03-25-2023 11:51-0400 Diastolic blood pressure 64 mm[Hg] Israel Tirmonia DO Work Phone: [facility] 03-25-2023 11:51-0400 Heart rate 76 /min Israel Tirmonia DO Work Phone: [facility] 03-25-2023 11:51-0400 Respiratory rate 16 /min Israel Tirmonia DO Work Phone: [facility] 03-25-2023 11:51-0400 Systolic blood pressure 112 mm[Hg] Israel Pruitt DO Work Phone: [facility] 03-17-2023 08:38-0400 Body temperature 97.5 [degF] Chair Green Work Phone: [facility] 03-17-2023 08:38-0400 Diastolic blood pressure 81 mm[Hg] Chair Green Work Phone: [facility] 03-17-2023 08:38-0400 Heart rate 80 /min Chair Green Work Phone: [facility] 03-17-2023 08:38-0400 Systolic blood pressure 121 mm[Hg] Chair Green Work Phone: [facility] 03-16-2023 08:29-0400 Body temperature 98.6 [degF] Chair Green Work Phone: [facility] 03-16-2023 08:29-0400 Body weight 81.01 kg Chair Green Work Phone: [facility] 03-16-2023 08:29-0400 Diastolic blood pressure 55 mm[Hg] Chair Green Work Phone: [facility] 03-16-2023 08:29-0400 Heart rate 78 /min Chair Green Work Phone: [facility] 03-16-2023 08:29-0400 Respiratory rate 18 /min Chair Green Work Phone: [facility] 03-16-2023 08:29-0400 Systolic blood pressure 110 mm[Hg] Chair Green Work Phone: [facility] 03-13-2023 08:29-0400 Body temperature 97.7 [degF] Chair Green Work Phone: [facility] 03-13-2023 08:29-0400 Diastolic blood pressure 73 mm[Hg] Chair Green Work Phone: [facility] 03-13-2023 08:29-0400 Heart rate 92 /min Chair Green Work Phone: [facility] 05-05-2023 08:29-0400 Respiratory rate 18 /min Chair Green Work Phone: [facility] 03-13-2023 08:29-0400 Systolic blood pressure 113 mm[Hg] Chair Green Work Phone: [facility] 03-12-2023 14:32-0400 Body height 170.2 cm Israel Tirmonia DO Work Phone: [facility] 03-12-2023 14:32-0400 Body weight 78.93 kg Israel Tirmonia DO Work Phone: [facility] 03-12-2023 14:32-0400 Diastolic blood pressure 68 mm[Hg] Israel Tirmonia DO Work Phone: [facility] 03-12-2023 14:32-0400 Heart rate 90 /min Israel Tirmonia DO Work Phone: [facility] 03-12-2023 14:32-0400 Respiratory rate 16 /min Israel Pettymonia DO Work Phone: [facility] 03-12-2023 14:32-0400 Systolic blood pressure 120 mm[Hg] Israel Tirmonia DO Work Phone: [facility] 03-12-2023 08:25-0400 Body temperature 97.9 [degF] Chair Green Work Phone: [facility] 03-12-2023 08:25-0400 Diastolic blood pressure 55 mm[Hg] Chair Green Work Phone: [facility] 03-12-2023 08:25-0400 Heart rate 112 /min Chair Green Work Phone: [facility] 03-12-2023 08:25-0400 Respiratory rate 18 /min Chair Green Work Phone: [facility] 03-12-2023 08:25-0400 Systolic blood pressure 103 mm[Hg] Chair Green Work Phone: [facility] 03-11-2023 08:24-0400 Body temperature 97.7 [degF] Chair Green Work Phone: [facility] 03-11-2023 08:24-0400 Diastolic blood pressure 68 mm[Hg] Chair Green Work Phone: [facility] 03-11-2023 08:24-0400 Heart rate 96 /min Chair Green Work Phone: [facility] 03-11-2023 08:24-0400 Systolic blood pressure 110 mm[Hg] Chair Green Work Phone: [facility] 03-09-2023 08:26-0400 Body temperature 97.7 [degF] Chair Green Work Phone: [facility] 03-09-2023 08:26-0400 Body weight 82.46 kg Chair Green Work Phone: [facility] 03-09-2023 08:26-0400 Diastolic blood pressure 48 mm[Hg] Chair Green Work Phone: [facility] 03-09-2023 08:26-0400 Heart rate 66 /min Chair Green Work Phone: [facility] 03-09-2023 08:26-0400 Respiratory rate 18 /min Chair Green Work Phone: [facility] 03-09-2023 08:26-0400 Systolic blood pressure 100 mm[Hg] Chair Green Work Phone: [facility] 02-17-2023 08:36-0400 Body temperature 98.2 [degF] Chair Green Work Phone: [facility] 02-17-2023 08:36-0400 Diastolic blood pressure 57 mm[Hg] Chair Green Work Phone: [facility] 02-17-2023 08:36-0400 Heart rate 74 /min Chair Green Work Phone: [facility] 02-17-2023 08:36-0400 Systolic blood pressure 105 mm[Hg] Chair Green Work Phone: [facility] 02-16-2023 08:23-0400 Body temperature 97.7 [degF] Chair Green Work Phone: [facility] 02-16-2023 08:23-0400 Body weight 78.56 kg Chair Green Work Phone: [facility] 02-16-2023 08:23-0400 Diastolic blood pressure 82 mm[Hg] Chair Green Work Phone: [facility] 02-16-2023 08:23-0400 Heart rate 53 /min Chair Green Work Phone: [facility] 02-16-2023 08:23-0400 SaO2% (BldA) [Mass fraction] 100 % Chair Green Work Phone: [facility] 02-16-2023 08:23-0400 Systolic blood pressure 128 mm[Hg] Chair Green Work Phone: [facility] 02-13-2023 08:23-0400 Body temperature 97.7 [degF] Chair Green Work Phone: [facility] 02-13-2023 08:23-0400 Diastolic blood pressure 71 mm[Hg] Chair Green Work Phone: [facility] 02-13-2023 08:23-0400 Heart rate 72 /min Chair Green Work Phone: [facility] 02-13-2023 08:23-0400 Respiratory rate 18 /min Chair Green Work Phone: [facility] 02-13-2023 08:23-0400 Systolic blood pressure 127 mm[Hg] Chair Green Work Phone: [facility] 02-12-2023 08:52-0400 Body temperature 97.9 [degF] Chair Green Work Phone: [facility] 02-12-2023 08:52-0400 Diastolic blood pressure 72 mm[Hg] Chair Green Work Phone: [facility] 02-12-2023 08:52-0400 Heart rate 18 /min Chair Green Work Phone: [facility] 02-12-2023 08:52-0400 Systolic blood pressure 140 mm[Hg] Chair Green Work Phone: [facility] 02-11-2023 08:30-0400 Body temperature 97.9 [degF] Chair Green Work Phone: [facility] 02-11-2023 08:30-0400 Diastolic blood pressure 54 mm[Hg] Chair Green Work Phone: [facility] 02-11-2023 08:30-0400 Heart rate 53 /min Chair Green Work Phone: [facility] 02-11-2023 08:30-0400 Respiratory rate 16 /min Chair Green Work Phone: [facility] 02-11-2023 08:30-0400 Systolic blood pressure 112 mm[Hg] Chair Green Work Phone: [facility] 02-10-2023 08:32-0400 Body temperature 98.29 [degF] Chair Green Work Phone: [facility] 02-10-2023 08:32-0400 Diastolic blood pressure 63 mm[Hg] Chair Green Work Phone: [facility] 02-10-2023 08:32-0400 Heart rate 80 /min Chair Green Work Phone: [facility] 02-10-2023 08:32-0400 Respiratory rate 16 /min Chair Green Work Phone: [facility] 02-10-2023 08:32-0400 Systolic blood pressure 96 mm[Hg] Chair Green Work Phone: [facility] 02-09-2023 08:26-0400 Body temperature 97.9 [degF] Bed Green Work Phone: [facility] 02-09-2023 08:26-0400 Body weight 81.74 kg Bed Green Work Phone: [facility] 02-09-2023 08:26-0400 Diastolic blood pressure 82 mm[Hg] Bed Green Work Phone: [facility] 02-09-2023 08:26-0400 Heart rate 83 /min Bed Green Work Phone: [facility] 02-09-2023 08:26-0400 Respiratory rate 18 /min Bed Green Work Phone: [facility] 02-09-2023 08:26-0400 Systolic blood pressure 127 mm[Hg] Bed Green Work Phone: [facility] 02-04-2023 11:23-0400 Body temperature 97 [degF] Randa Sindel DO Work Phone: [facility] 02-04-2023 11:23-0400 Body weight 78.56 kg Randa Sindel DO Work Phone: [facility] 02-04-2023 11:23-0400 Diastolic blood pressure 57 mm[Hg] Randa Sindel DO Work Phone: [facility] 02-04-2023 11:23-0400 Heart rate 80 /min Randa Sindel DO Work Phone: [facility] 02-04-2023 11:23-0400 SaO2% (BldA) [Mass fraction] 98 % Randa Sindel DO Work Phone: [facility] 02-04-2023 11:23-0400 Systolic blood pressure 131 mm[Hg] Randa Sindel DO Work Phone: [facility] 01-19-2023 08:32-0400 Body temperature 98.6 [degF] Chair Green Work Phone: [facility] 01-19-2023 08:32-0400 Body weight 80.02 kg Chair Green Work Phone: [facility] 01-19-2023 08:32-0400 Diastolic blood pressure 73 mm[Hg] Chair Green Work Phone: [facility] 01-19-2023 08:32-0400 Heart rate 80 /min Chair Green Work Phone: [facility] 01-19-2023 08:32-0400 Respiratory rate 18 /min Chair Green Work Phone: [facility] 01-19-2023 08:32-0400 Systolic blood pressure 124 mm[Hg] Chair Green Work Phone: [facility] 01-16-2023 08:30-0500 Body temperature 97.9 [degF] Chair Green Work Phone: [facility] 01-16-2023 08:30-0500 Diastolic blood pressure 47 mm[Hg] Chair Green Work Phone: [facility] 01-16-2023 08:30-0500 Heart rate 80 /min Chair Green Work Phone: [facility] 01-16-2023 08:30-0500 Respiratory rate 16 /min Chair Green Work Phone: [facility] 01-16-2023 08:30-0500 Systolic blood pressure 120 mm[Hg] Chair Green Work Phone: [facility] 01-15-2023 08:33-0500 Body temperature 98.1 [degF] Chair Green Work Phone: [facility] 01-15-2023 08:33-0500 Diastolic blood pressure 44 mm[Hg] Chair Green Work Phone: [facility] 01-15-2023 08:33-0500 Heart rate 96 /min Chair Green Work Phone: [facility] 01-15-2023 08:33-0500 Respiratory rate 16 /min Chair Green Work Phone: [facility] 01-15-2023 08:33-0500 Systolic blood pressure 105 mm[Hg] Chair Green Work Phone: [facility] 01-14-2023 08:34-0500 Body temperature 98.2 [degF] Chair Green Work Phone: [facility] 01-14-2023 08:34-0500 Body weight 81.2 kg Chair Green Work Phone: [facility] 01-14-2023 08:34-0500 Diastolic blood pressure 58 mm[Hg] Chair Green Work Phone: [facility] 01-14-2023 08:34-0500 Heart rate 85 /min Chair Green Work Phone: [facility] 01-14-2023 08:34-0500 Respiratory rate 20 /min Chair Green Work Phone: [facility] 01-14-2023 08:34-0500 Systolic blood pressure 99 mm[Hg] Chair Green Work Phone: [facility] 01-13-2023 11:05-0500 Body height 167.6 cm Iram Johnson MANAGER DAIR[employer] SALES REPRESENTATIVE Work Phone: [facility] 01-13-2023 11:05-0500 Body weight 81.19 kg Iram Johnson MANAGER DAIRY[employer] SALES REPRESENTATIVE Work Phone: [facility] 01-13-2023 11:05-0500 Diastolic blood pressure 72 mm[Hg] Iram Johnson MANAGER DAIRY[employer] SALES REPRESENTATIVE Work Phone: [facility] 01-13-2023 11:05-0500 Heart rate 64 /min Iram Johnson MANAGER DAIRY[employer] SALES REPRESENTATIVE Work Phone: [facility] 01-13-2023 11:05-0500 Systolic blood pressure 110 mm[Hg] Iram Johnson MANAGER DAIRY[employer] SALES REPRESENTATIVE Work Phone: [facility] 01-13-2023 08:37-0500 Body temperature 97.9 [degF] Chair Green Work Phone: [facility] 01-13-2023 08:37-0500 Diastolic blood pressure 72 mm[Hg] Chair Green Work Phone: [facility] 01-13-2023 08:37-0500 Heart rate 99 /min Chair Green Work Phone: [facility] 01-13-2023 08:37-0500 Respiratory rate 20 /min Chair Green Work Phone: [facility] 01-13-2023 08:37-0500 Systolic blood pressure 120 mm[Hg] Chair Green Work Phone: [facility] 01-13-2023 08:33-0500 Body weight 81.33 kg Chair Green Work Phone: [facility] 01-12-2023 08:34-0500 Body temperature 98.1 [degF] Bed Green Work Phone: [facility] 01-12-2023 08:34-0500 Body weight 81.28 kg Bed Green Work Phone: [facility] 01-12-2023 08:34-0500 Diastolic blood pressure 69 mm[Hg] Bed Green Work Phone: [facility] 01-12-2023 08:34-0500 Heart rate 89 /min Bed Green Work Phone: [facility] 01-12-2023 08:34-0500 Respiratory rate 16 /min Bed Green Work Phone: [facility] 01-12-2023 08:34-0500 Systolic blood pressure 123 mm[Hg] Bed Green Work Phone: [facility] 12-22-2022 15:00-0500 Body temperature 97.5 [degF] Chair Green Work Phone: [facility] 12-22-2022 15:00-0500 Body weight 77.47 kg Chair Green Work Phone: [facility] 12-22-2022 15:00-0500 Diastolic blood pressure 50 mm[Hg] Chair Green Work Phone: [facility] 12-22-2022 15:00-0500 Heart rate 85 /min Chair Green Work Phone: [facility] 12-22-2022 15:00-0500 Systolic blood pressure 103 mm[Hg] Chair Green Work Phone: [facility] 2022 15:22-0500 Body temperature 97.7 [degF] Chair Green Work Phone: [facility] 2022 15:22-0500 Diastolic blood pressure 65 mm[Hg] Chair Green Work Phone: [facility] 2022 15:22-0500 Heart rate 80 /min Chair Green Work Phone: [facility] 2022 15:22-0500 Respiratory rate 16 /min Chair Green Work Phone: [facility] 2022 15:22-0500 Systolic blood pressure 117 mm[Hg] Chair Green Work Phone: [facility] 12-15-2022 08:31-0500 Body temperature 97.7 [degF] Bed Green Work Phone: [facility] 12-15-2022 08:31-0500 Body weight 80.29 kg Bed Green Work Phone: [facility] 12-15-2022 08:31-0500 Diastolic blood pressure 66 mm[Hg] Bed Green Work Phone: [facility] 12-15-2022 08:31-0500 Heart rate 84 /min Bed Green Work Phone: [facility] 12-15-2022 08:31-0500 Respiratory rate 16 /min Bed Green Work Phone: [facility] 12-15-2022 08:31-0500 Systolic blood pressure 111 mm[Hg] Bed Green Work Phone: [facility] 12-11-2022 16:26-0500 Body height 170.2 cm Israel Tirmonia DO Work Phone: [facility] 12-11-2022 16:26-0500 Body temperature 97.9 [degF] Israel Tirmonia DO Work Phone: [facility] 12-11-2022 16:26-0500 Body weight 77.84 kg Israel Tirmonia DO Work Phone: [facility] 12-11-2022 16:26-0500 Diastolic blood pressure 70 mm[Hg] Israel Tirmonia DO Work Phone: [facility] 12-11-2022 16:26-0500 Heart rate 66 /min Israel Tirmonia DO Work Phone: [facility] 12-11-2022 16:26-0500 Respiratory rate 16 /min Israel Tirmonia DO Work Phone: [facility] 12-11-2022 16:26-0500 SaO2% (BldA) [Mass fraction] 98 % Israel Pruitt DO Work Phone: [facility] 12-11-2022 16:26-0500 Systolic blood pressure 110 mm[Hg] Israel Pruitt DO Work Phone: [facility] 12-05-2022 11:00-0500 Diastolic blood pressure 71 mm[Hg] Manjeet Butler MD Work Phone: [facility] 12-05-2022 11:00-0500 Heart rate 90 /min Manjeet Butler MD Work Phone: [facility] 12-05-2022 11:00-0500 Respiratory rate 15 /min Manjeet Butler MD Work Phone: [facility] 12-05-2022 11:00-0500 SaO2% (BldA) [Mass fraction] 96 % Manjeet Butler MD Work Phone: [facility] 12-05-2022 11:00-0500 Systolic blood pressure 118 mm[Hg] Manjeet Butler MD Work Phone: [facility] 12-04-2022 09:08-0500 Body height 170.2 cm Skye Mas APRN.OFFICE MACH[employer]ES SALES REPRESENTATIVE Work Phone: [facility] 12-04-2022 09:08-0500 Body weight 77.11 kg Skye Mas MANAGER DAIRY.OFFICE MACHINES SALES REPRESENTATIVE Work Phone: [facility] 12-04-2022 09:08-0500 Diastolic blood pressure 72 mm[Hg] Skye Mas MANAGER DAIRY.OFFICE MACHINES SALES REPRESENTATIVE Work Phone: [facility] 12-04-2022 09:08-0500 Heart rate 82 /min Skye Mas MANAGER DAIRY.OFFICE MACHINES SALES REPRESENTATIVE Work Phone: [facility] 12-04-2022 09:08-0500 SaO2% (BldA) [Mass fraction] 96 % Skye Mas MANAGER DAIRY.OFFICE MACHINES SALES REPRESENTATIVE Work Phone: [facility] 12-04-2022 09:08-0500 Systolic blood pressure 116 mm[Hg] Skye Mas APRN.OFFICE MACH[employer]ES SALES REPRESENTATIVE Work Phone: [facility] 11-26-2022 11:09-0500 Body temperature 97.3 [degF] Randa Sindel DO Work Phone: [facility] 11-26-2022 11:09-0500 Body weight 76.02 kg Randa Sindel DO Work Phone: [facility] 11-26-2022 11:09-0500 Diastolic blood pressure 57 mm[Hg] Randa Sindel DO Work Phone: [facility] 11-26-2022 11:09-0500 Heart rate 84 /min Randa Sindel DO Work Phone: [facility] 11-26-2022 11:09-0500 SaO2% (BldA) [Mass fraction] 96 % Randa Sindel DO Work Phone: [facility] 11-26-2022 11:09-0500 Systolic blood pressure 104 mm[Hg] Randa Sindel DO Work Phone: [facility] 11-05-2022 11:10-0500 Body height 170.2 cm Randa Sindel DO Work Phone: [facility] 11-05-2022 11:10-0500 Body temperature 97.3 [degF] Randa Sindel DO Work Phone: [facility] 11-05-2022 11:10-0500 Body weight 80.02 kg Randa Sindel DO Work Phone: [facility] 11-05-2022 11:10-0500 Diastolic blood pressure 53 mm[Hg] Randa Sindel DO Work Phone: [facility] 11-05-2022 11:10-0500 Heart rate 89 /min Randa Sindel DO Work Phone: [facility] 11-05-2022 11:10-0500 SaO2% (BldA) [Mass fraction] 92 % Randa Sindel DO Work Phone: [facility] 11-05-2022 11:10-0500 Systolic blood pressure 106 mm[Hg] Randa Rowell DO Work Phone: [facility] 10-24-2022 13:00-0500 Diastolic blood pressure 59 mm[Hg] Jesus Manuel White MD, MD Work Phone: [facility] 10-24-2022 13:00-0500 SaO2% (BldA) [Mass fraction] 100 % Jesus Manuel White MD, MD Work Phone: [facility] 10-24-2022 13:00-0500 Systolic blood pressure 89 mm[Hg] Jesus Manuel White MD, MD Work Phone: [facility] 10-24-2022 12:45-0500 Heart rate 75 /min Jesus Manuel White MD, MD Work Phone: [facility] 10-24-2022 12:40-0500 Respiratory rate 15 /min Jesus Manuel White MD, MD Work Phone: [facility] 10-24-2022 11:11-0500 Body temperature 97.2 [degF] Jesus Manuel White MD, MD Work Phone: [facility] 10-16-2022 14:00-0500 Body height 170.2 cm Tara Bryan MANAGER DAIRY.OFFICE MACHINES SALES REPRESENTATIVE Work Phone: [facility] 10-16-2022 14:00-0500 Body weight 76.57 kg Tara Ángel MANAGER DAIRY.OFFICE MACHINES SALES REPRESENTATIVE Work Phone: [facility] 10-16-2022 14:00-0500 Diastolic blood pressure 40 mm[Hg] Tara Ángel MANAGER DAIRY.OFFICE MACHINES SALES REPRESENTATIVE Work Phone: [facility] 10-16-2022 14:00-0500 Heart rate 64 /min Tara Ángel MANAGER DAIRY.OFFICE MACHINES SALES REPRESENTATIVE Work Phone: [facility] 10-16-2022 14:00-0500 Respiratory rate 18 /min Tara Ángel MANAGER DAIRY.OFFICE MACHINES SALES REPRESENTATIVE Work Phone: [facility] 10-16-2022 14:00-0500 SaO2% (BldA) [Mass fraction] 100 % Tara Ángel MANAGER DAIRY.OFFICE MACHINES SALES REPRESENTATIVE Work Phone: [facility] 10-16-2022 14:00-0500 Systolic blood pressure 120 mm[Hg] Tara Ángel MANAGER DAIRY.OFFICE MACHINES SALES REPRESENTATIVE Work Phone: [facility] 10-09-2022 10:43-0500 Body height 170.2 cm Randa Sindel DO Work Phone: [facility] 10-09-2022 10:43-0500 Body temperature 97.2 [degF] Randa Sindel DO Work Phone: [facility] 10-09-2022 10:43-0500 Body weight 75.48 kg Randa Sindel DO Work Phone: [facility] 10-09-2022 10:43-0500 Diastolic blood pressure 60 mm[Hg] Randa Sindel DO Work Phone: [facility] 10-09-2022 10:43-0500 Heart rate 92 /min Randa Sindel DO Work Phone: [facility] 10-09-2022 10:43-0500 SaO2% (BldA) [Mass fraction] 98 % Randa Sindel DO Work Phone: [facility] 10-09-2022 10:43-0500 Systolic blood pressure 110 mm[Hg] Randa Sindel DO Work Phone: [facility] 10-01-2022 11:44-0500 Body height 170.2 cm Device [place] Work Phone: [facility] 10-01-2022 11:44-0500 Body temperature 98.2 [degF] Device [place] Work Phone: [facility] 10-01-2022 11:44-0500 Body weight 74.84 kg Device [place] Work Phone: [facility] 10-01-2022 11:44-0500 Diastolic blood pressure 60 mm[Hg] Device [place] Work Phone: [facility] 10-01-2022 11:44-0500 Heart rate 83 /min Device [place] Work Phone: [facility] 10-01-2022 11:44-0500 Respiratory rate 20 /min Device [place] Work Phone: [facility] 10-01-2022 11:44-0500 SaO2% (BldA) [Mass fraction] 96 % [employer] [place] Work Phone: [facility] 10-01-2022 11:44-0500 Systolic blood pressure 112 mm[Hg] Device [place] Work Phone: [facility] 09-25-2022 11:18-0500 Body height 171.7 cm Israel Tirmonia DO Work Phone: [facility] 09-25-2022 11:18-0500 Body temperature 97.39 [degF] Israel Tirmonia DO Work Phone: [facility] 09-25-2022 11:18-0500 Body weight 78.2 kg Israel Tirmonia DO Work Phone: [facility] 09-25-2022 11:18-0500 Diastolic blood pressure 60 mm[Hg] Israel Tirmonia DO Work Phone: [facility] 09-25-2022 11:18-0500 Heart rate 73 /min Israel Tirmonia DO Work Phone: [facility] 09-25-2022 11:18-0500 SaO2% (BldA) [Mass fraction] 96 % Israel Tirmonia DO Work Phone: [facility] 09-25-2022 11:18-0500 Systolic blood pressure 114 mm[Hg] Israel Tirmonia DO Work Phone: [facility] 09-11-2022 15:45-0400 Body height 171.7 cm Israel Tirmonia DO Work Phone: [facility] 09-11-2022 15:45-0400 Body temperature 98.29 [degF] Israel Tirmonia DO Work Phone: [facility] 09-11-2022 15:45-0400 Body weight 78.56 kg Israel Tirmonia DO Work Phone: [facility] 09-11-2022 15:45-0400 Diastolic blood pressure 56 mm[Hg] Israel Tirmonia DO Work Phone: [facility] 09-11-2022 15:45-0400 Heart rate 49 /min Israel Tirmonia DO Work Phone: [facility] 09-11-2022 15:45-0400 SaO2% (BldA) [Mass fraction] 97 % Israel Tirmonia DO Work Phone: [facility] 09-11-2022 15:45-0400 Systolic blood pressure 102 mm[Hg] Israel Tirmonia DO Work Phone: [facility] 07-24-2022 10:44-0400 Body height 171.7 cm Israel Tirmonia DO Work Phone: [facility] 07-24-2022 10:44-0400 Body temperature 97.5 [degF] Israel Tirmonia DO Work Phone: [facility] 07-24-2022 10:44-0400 Body weight 80.38 kg Israel Tirmonia DO Work Phone: [facility] 07-24-2022 10:44-0400 Diastolic blood pressure 60 mm[Hg] Israel Tirmonia DO Work Phone: [facility] 07-24-2022 10:44-0400 Heart rate 67 /min Israel Tirmonia DO Work Phone: [facility] 07-24-2022 10:44-0400 SaO2% (BldA) [Mass fraction] 97 % Israel Tirmonia DO Work Phone: [facility] 07-24-2022 10:44-0400 Systolic blood pressure 110 mm[Hg] Israel Tirmonia DO Work Phone: [facility] 07-17-2022 11:05-0400 Body height 172.7 cm Rosala nena Zavalaell PA-C Work Phone: [facility] 07-17-2022 11:05-0400 Body weight 82.01 kg Rosa Gonzalez PA-C Work Phone: [facility] 07-17-2022 11:05-0400 Diastolic blood pressure 43 mm[Hg] Rosa Gonzalez PA-C Work Phone: [facility] 07-17-2022 11:05-0400 Heart rate 68 /min Rosa Gonzalez PA-C Work Phone: [facility] 07-17-2022 11:05-0400 Respiratory rate 18 /min Rosa Gonzalez PA-C Work Phone: [facility] 07-17-2022 11:05-0400 SaO2% (BldA) [Mass fraction] 98 % Rosa Gonzalez PA-C Work Phone: [facility] 07-17-2022 11:05-0400 Systolic blood pressure 118 mm[Hg] Rosala nena Zavalaell PA-C Work Phone: [facility] 06-10-2022 11:23-0400 Body height 172.7 cm Iram Johnson MANAGER DAIRY.OFFICE MACHINES SALES REPRESENTATIVE Work Phone: [facility] 06-10-2022 11:23-0400 Body weight 93.89 kg Iram Johnson MANAGER DAIRY.OFFICE MACHINES SALES REPRESENTATIVE Work Phone: [facility] 06-10-2022 11:23-0400 Diastolic blood pressure 78 mm[Hg] Iram Johnson MANAGER DAIRY.OFFICE MACHINES SALES REPRESENTATIVE Work Phone: [facility] 06-10-2022 11:23-0400 Heart rate 65 /min Iram Johnson MANAGER DAIRY.OFFICE MACHINES SALES REPRESENTATIVE Work Phone: [facility] 06-10-2022 11:23-0400 Systolic blood pressure 128 mm[Hg] Iram Johnson MANAGER DAIRY.OFFICE MACHINES SALES REPRESENTATIVE Work Phone: [facility] 05-29-2022 14:56-0400 Body height 172.7 cm Israel Pruitt DO Work Phone: [facility] 05-29-2022 14:56-0400 Body temperature 97.5 [degF] Israel Felicianoia DO Work Phone: [facility] 05-29-2022 14:56-0400 Body weight 93.89 kg Israel Pettymonia DO Work Phone: [facility] 05-29-2022 14:56-0400 Diastolic blood pressure 64 mm[Hg] Israel Pettymonia DO Work Phone: [facility] 05-29-2022 14:56-0400 Heart rate 70 /min Israel Pettymonia DO Work Phone: [facility] 05-29-2022 14:56-0400 SaO2% (BldA) [Mass fraction] 99 % Israel Pettymonia DO Work Phone: [facility] 05-29-2022 14:56-0400 Systolic blood pressure 110 mm[Hg] Israel Felicianoia DO Work Phone: [facility] 05-08-2022 13:08-0400 Body weight 90.17 kg Laron MIRAMONTESC Work Phone: [facility] 05-08-2022 13:08-0400 Diastolic blood pressure 53 mm[Hg] Laron GÓMEZ-C Work Phone: [facility] 05-08-2022 13:08-0400 Heart rate 64 /min Laron GÓMEZ-C Work Phone: [facility] 05-08-2022 13:08-0400 SaO2% (BldA) [Mass fraction] 97 % Laron MIRAMONTESC Work Phone: [facility] 05-08-2022 13:08-0400 Systolic blood pressure 137 mm[Hg] Laron GÓMEZ-C Work Phone: [facility] 03-21-2022 13:15-0400 Body height 167.6 cm Guillermina Cummings MANAGER DAIRY.OFFICE MACHINES SALES REPRESENTATIVE Work Phone: [facility] 03-21-2022 13:15-0400 Body weight 91.44 kg Guillermina Ellwood MANAGER DAIRY.OFFICE MACHINES SALES REPRESENTATIVE Work Phone: [facility] 03-21-2022 13:15-0400 Diastolic blood pressure 52 mm[Hg] Guillermina Ellwood MANAGER DAIRY.OFFICE MACHINES SALES REPRESENTATIVE Work Phone: [facility] 03-21-2022 13:15-0400 Heart rate 70 /min Guillermina Ellwood MANAGER DAIRY.OFFICE MACHINES SALES REPRESENTATIVE Work Phone: [facility] 03-21-2022 13:15-0400 SaO2% (BldA) [Mass fraction] 97 % Guillermina Ellwood MANAGER DAIRY.OFFICE MACHINES SALES REPRESENTATIVE Work Phone: [facility] 03-21-2022 13:15-0400 Systolic blood pressure 131 mm[Hg] Guillermina Ellwood MANAGER DAIRY.OFFICE MACHINES SALES REPRESENTATIVE Work Phone: [facility] 03-18-2022 10:16-0400 Body weight 90.27 kg Israel Jovannymonia DO Work Phone: [facility] 03-18-2022 10:16-0400 Diastolic blood pressure 80 mm[Hg] Israel Tirmonia DO Work Phone: [facility] 03-18-2022 10:16-0400 Systolic blood pressure 168 mm[Hg] Israel Tirmonia DO Work Phone: [facility] 02-26-2022 14:51-0400 Body height 170.2 cm Guillermina Ellwood MANAGER DAIRY.OFFICE MACHINES SALES REPRESENTATIVE Work Phone: [facility] 02-26-2022 14:51-0400 Body weight 88.45 kg Guillermina Ellwood MANAGER DAIRY.OFFICE MACHINES SALES REPRESENTATIVE Work Phone: [facility] 02-26-2022 14:51-0400 Diastolic blood pressure 60 mm[Hg] Guillermina Ellwood MANAGER DAIRY.OFFICE MACHINES SALES REPRESENTATIVE Work Phone: [facility] 02-26-2022 14:51-0400 Heart rate 65 /min Guillermina Ellwood MANAGER DAIRY.OFFICE MACHINES SALES REPRESENTATIVE Work Phone: [facility] 02-26-2022 14:51-0400 SaO2% (BldA) [Mass fraction] 94 % Guillermina Ellwood MANAGER DAIRY.OFFICE MACHINES SALES REPRESENTATIVE Work Phone: [facility] 02-26-2022 14:51-0400 Systolic blood pressure 120 mm[Hg] Guillermina Cummings MANAGER DAIRY.OFFICE MACHINES SALES REPRESENTATIVE Work Phone: [facility] NEGATED: Highlighted [id number] 10:40-0500 BMI (Body Mass Index) 36.74 kg/m2 Bettye Codey [employer] [facility] Work Phone: NEGATED: Highlighted [id number] 10:40-0500 Body weight 99.79 kg Bettye Codey [employer] [facility] Work Phone: NEGATED: Highlighted [id number] 10:40-0500 Body weight 100 kg Bettye Codey [employer] [facility] Work Phone: NEGATED: Highlighted [id number] 10:40-0500 BP Diastolic 0 mm[Hg] Bettye Codey [employer] [facility] Work Phone: NEGATED: Highlighted [id number] 10:40-0500 BP Systolic 0 mm[Hg] Bettye Codey [employer] [facility] Work Phone: NEGATED: Highlighted [id number] 10:40-0500 Heart rate 2+ Bettye Codey [employer] [facility] Work Phone: NEGATED: Highlighted [id number] 10:40-0500 Heart rate Bettye Codey [employer] [facility] Work Phone: NEGATED: Highlighted [id number] 10:40-0500 Height 165.1 cm Bettye Codey [employer] [facility] Work Phone: NEGATED: Highlighted [id number] 10:40-0500 Height 165 cm Bettye Codey [employer] [facility] Work Phone: Encounters Encounter Date Encounter Type Care Provider Facility Start: 06-12-2025 End: 06-13-2025 ambulatory Arabella Moreno APRN.OFFICE MACHINES SALES REPRESENTATIVE Work Phone: [facility] [place] Comment on above: Leg swelling Start: 06-09-2025 End: 06-09-2025 ambulatory [facility]jection [facility] Work Phone: Hematology/Oncology Comment on above: 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) (Primary Dx); 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); MDS (myelodysplastic syndrome) (HCC) Start: 06-05-2025 End: 06-05-2025 Office outpatient visit 15 minutes Arabella Moreno APRN.OFFICE MACHINES SALES REPRESENTATIVE Work Phone: [facility] [place] Comment on above: Cellulitis of left u pper arm (Primary Dx); Multiple skin tears; Lymphedema of both lower extremities; Chronic heart failure with preserved ejection fraction (HCC) Start: 06-05-2025 End: 06-05-2025 ambulatory RONALDO PLEITEZ Facility:[facility] Start: 05-30-2025 End: 05-30-2025 ambulatory RONALDO PLEITEZ Facility:[facility] Start: 05-30-2025 End: 05-30-2025 Office outpatient visit 15 minutes Arabella Moreno APRN.OFFICE MACHINES SALES REPRESENTATIVE Work Phone: [facility] [place] Comment on above: Cellulitis of left u pper arm (Primary Dx); Multiple skin tears; 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 (current) use of anticoagulants Start: 05-26-2025 End: 05-26-2025 Telephone encounter Arabella Moreno APRN.OFFICE MACHINES SALES REPRESENTATIVE Work Phone: [facility] [place] Start: 05-26-2025 End: 05-26-2025 ambulatory [facility] Work Phone: Hematology/Oncology Comment on above: 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) (Primary Dx); 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); MDS (myelodysplastic syndrome) (HCC) Start: 05-25-2025 End: 05-25-2025 Office outpatient visit 25 minutes Arabella Moreno APRN.OFFICE MACHINES SALES REPRESENTATIVE Work Phone: [facility] [place] Comment on above: Multiple skin tears (Primary Dx); USP (current) use of anticoagulants Start: 05-25-2025 End: 05-25-2025 ambulatory ARABELLA MORENO Facility:[facility] Start: 05-22-2025 End: 05-23-2025 Telephone encounter Ronaldo Pleitez MD Work Phone: [facility] [place] Comment on above: Patient Update Start: 05-11-2025 End: 05-11-2025 ambulatory Injection Shaun [facility] Work Phone: Hematology/Oncology Comment on above: 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) (Primary Dx); 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); MDS (myelodysplastic syndrome) (HCC) Start: 05-05-2025 End: 05-08-2025 Telephone encounter Ronaldo Pleitez MD Work Phone: [facility] [place] Comment on above: Patient Update Start: 04-28-2025 End: 04-28-2025 ambulatory Injection Shaun [facility] Work Phone: Hematology/Oncology Comment on above: 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) (Primary Dx); 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 EPS [id number] Comment on above: Benign hypertension (Primary Dx); 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; Mixed hyperlipidemia; Pacemaker; CHB (complete heart block) (HCC); Chronic atrial fibrillation (HCC); USP current use of anticoagulant Start: 04-07-2025 End: 04-07-2025 ambulatory IRAM JOHNSON Facility:[id number] Start: 04-05-2025 End: 04-06-2025 Telephone encounter Ronaldo Pleitez MD Work Phone: [facility] [place] Comment on above: Patient Question Start: 03-31-2025 End: 03-31-2025 ambulatory RONALDO PLEITEZ Facility:[facility] Start: 03-28-2025 ambulatory RONALDO PLEITEZ Faci lity:[facility] Start: 03-27-2025 End: 03-27-2025 Office outpatient visit 25 minutes Ronaldo Pleitez MD Work Phone: Internal Medicine [place] Comment on above: Lymphedema of right lower extremity (Primary Dx); Lymphedema of both lower extremities Start: 03-27-2025 End: 03-27-2025 ambulatory RONALDO PLEITEZ Facility:[facility] Start: 03-17-2025 End: 04-24-2025 Telephone encounter Baljinder Galloway DO Work Phone: Hematology/Oncology Comment on above: Appointment Start: 03-17-2025 End: 03-17-2025 ambulatory Injection Shaun [facility] Work Phone: Hematology/Oncology Comment on above: 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) (Primary Dx); 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); MDS (myelodysplastic syndrome) (HCC) Start: 03-03-2025 End: 03-03-2025 ambulatory RONALDO PLEITEZ Facility:[facility] Start: 02-17-2025 End: 02-17-2025 ambulatory Injection Shaun [facility] Work Phone: Hematology/Oncology Comment on above: 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) (Primary Dx); 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); MDS (myelodysplastic syndrome) (HCC) Start: 02-03-2025 End: 02-03-2025 ambulatory Injection Shaun [facility] Work Phone: Hematology/Oncology Comment on above: 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) (Primary Dx); 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); MDS (myelodysplastic syndrome) (HCC) Start: 01-31-2025 End: 01-31-2025 ambulatory ARABELLA MORENO Facility:[facility] Start: 01-31-2025 End: 01-31-2025 Patient encounter procedure Arabella Moreno MANAGER DAIRY.OFFICE MACHINES SALES REPRESENTATIVE Work Phone: Internal Medicine [place] Comment on above: Medicare annual well ness visit, subsequent (Primary Dx); Lymphedema of both lower extremities; Chronic heart failure with preserved ejection fraction (HCC); Primary hypertension; Hypothyroidism, unspecified type; Constipation due to slow transit Start: 01-20-2025 End: 01-23-2025 Follow-up encounter Ronaldo Pleitez MD Work Phone: Internal Medicine [place] Start: 01-20-2025 End: 01-20-2025 ambulatory Injection [facility] [employer] Work Phone: Hematology/Oncology Comment on above: 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) (HCC) (Primary Dx); 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); MDS (myelodysplastic syndrome) (HCC) Start: 01-06-2025 End: 01-06-2025 Office outpatient visit 25 minutes Baljinder Galloway DO Work Phone: Hematology/Oncology Comment on above: 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); 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) Start: 01-06-2025 End: 01-06-2025 ambulatory Injection Shaun [facility] [employer] Work Phone: Hematology/Oncology Comment on above: 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) (HCC) (Primary Dx); 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); MDS (myelodysplastic syndrome) (HCC) Start: 12-30-2024 End: 12-30-2024 Patient encounter procedure [facility] Comment on above: Encounter for care o f pacemaker (Primary Dx) Start: 12-30-2024 End: 12-30-2024 ambulatory RONALDO PLEITEZ Facility:[id number] Start: 12-23-2024 End: 12-23-2024 ambulatory Injection Shaun [facility] Work Phone: Hematology/Oncology Comment on above: 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) (HCC) (Primary Dx); 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); MDS (myelodysplastic syndrome) (HCC) Refill Request Start: 12-09-2024 End: 12-09-2024 ambulatory Injection Shaun [facility] Work Phone: Hematology/Oncology Comment on above: 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) (HCC) (Primary Dx); 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); MDS (myelodysplastic syndrome) (HCC) Start: 11-24-2024 End: 11-24-2024 ambulatory Injection Shaun [facility] Work Phone: Hematology/Oncology Comment on above: 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) (HCC) (Primary Dx); 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); MDS (myelodysplastic syndrome) (HCC) Start: 11-16-2024 End: 11-18-2024 Telephone encounter Baljinder Galloway DO Work Phone: Hematology/Oncology Comment on above: Results Start: 11-15-2024 End: 11-15-2024 ambulatory RONALDO PLEITEZ Facility:[facility] Start: 10-14-2024 End: 10-14-2024 Telephone encounter Ronaldo Pleitez MD Work Phone: Internal Medicine [place] Comment on above: Dental surgeon efrem bear Start: 10-13-2024 End: 10-13-2024 Telephone encounter Iram Johnson APRN.OFFICE MACHINES SALES REPRESENTATIVE Work Phone: [facility] Comment on above: Results; Patient Upd ate Start: 10-12-2024 ambulatory No Primary Car e Physician [place] [place]: 10-11-2024 End: 10-11-2024 Office outpatient visit 25 minutes Baljinder Manuel Robbinsjason CASTAÑEDA Work Phone: Hematology/Oncology Comment on above: 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); Macrocytic anemia Start: 10-11-2024 End: 10-12-2024 ambulatory No Primary Care Physician Facility:[facility] Start: 10-10-2024 End: 10-10-2024 Telephone encounter Ronaldo Pleitez MD Work Phone: Internal Medicine [place] Comment on above: short term medicatio n request Start: 10-03-2024 End: 10-03-2024 ambulatory Ginna Em RN Work Phone: Telecommunications Support Management Comment on above: CDM (Telephonic outr each/) Start: 09-27-2024 End: 09-30-2024 Telephone encounter Iram Johnson APRN.OFFICE MACHINES SALES REPRESENTATIVE Work Phone: [facility] Start: 09-27-2024 End: 09-27-2024 Patient encounter procedure Iram Johnson APRN.OFFICE MACHINES SALES REPRESENTATIVE Work Phone: [facility] Comment on above: Benign hypertension (Primary Dx); 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; Mixed hyperlipidemia; Pacemaker; CHB (complete heart block) (HCC); Chronic atrial fibrillation (HCC); USP current use of anticoagulant; 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); MDS (myelodysplastic syndrome) (HCC); Myasthenia gravis (HCC); Vertebral artery occlusion, left; Venous stasis of both lower extremities; 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); Status post ligation of left atrial appendage; PVC's (premature ventricular contractions); Encounter for screening for cardiovascular disorders; SOB (shortness of breath) Encounter for care o f pacemaker (Primary Dx) Start: 09-27-2024 End: 09-27-2024 ambulatory IRAM JOHNSON Facility:[id number] Start: 09-22-2024 End: 09-22-2024 ambulatory RONALDO PLEITEZ Facility:[facility] Start: 09-15-2024 End: 09-15-2024 Telephone encounter Baljinder Jackson Laverne CASTAÑEDA Work Phone: Hematology/Oncology Comment on above: Results Start: 09-15-2024 End: 09-15-2024 ambulatory Lauri Cook Work Phone: Hematology/Oncology Comment on above: 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); History of anemia Start: 09-15-2024 End: 09-15-2024 Patient encounter procedure Laurimarjorie Tuckeright Work Phone: Hematology/Oncology Start: 08-30-2024 End: 08-30-2024 ambulatory Ginna Em RN Work Phone: [employer] Support Management Comment on above: CDM (Telephonic outr each/) Start: 08-24-2024 End: 08-25-2024 Telephone encounter Ronaldo Pleitez MD Work Phone: Internal Medicine [place] Comment on above: Patient Update Start: 08-22-2024 End: 08-22-2024 ambulatory RONALDO PLEITEZ Facility:[facility] Start: 08-02-2024 End: 08-02-2024 ambulatory Ginna Em RN Work Phone: [employer] Support Management Comment on above: CDM (Telephonic outr each/) Start: 07-29-2024 End: 07-29-2024 ambulatory RONALDO PLEITEZ Facility:[facility] Start: 07-29-2024 End: 07-29-2024 Office outpatient visit 25 minutes Ronaldo Pleitez MD Work Phone: Internal Medicine [place] Comment on above: Benign hypertension (Primary Dx); Screening for depression; Encounter for screening examination for other mental health and behavioral disorders; Mixed hyperlipidemia; Hypothyroidism, unspecified type; Lymphedema of both lower extremities; Chronic atrial fibrillation (HCC); Myasthenia gravis (HCC); Chronic heart failure with preserved ejection fraction (HCC); Viral URI; Restless leg syndrome; Pleural rub Start: 07-22-2024 End: 07-22-2024 Telephone encounter Baljinder Galloway DO Work Phone: Hematology/Oncology Comment on above: Results Start: 07-21-2024 End: 07-21-2024 ambulatory RONALDO PLEITEZ Facility:[facility] Start: 07-05-2024 End: 07-05-2024 ambulatory Ginna Em RN Work Phone: [employer] Support Management Comment on above: CDM (Telephonic outr each/) Start: 07-04-2024 End: 07-04-2024 ambulatory Ginna Em RN Work Phone: Telecommunications Support Management Comment on above: CDM (Telephonic outr each/) Start: 06-17-2024 End: 06-17-2024 Patient encounter procedure [facility] Comment on above: Encounter for care o f pacemaker (Primary Dx) Start: 06-16-2024 End: 06-16-2024 Patient encounter procedure Baljinder Jackson Laverne DO Work Phone: Hematology/Oncology Start: 06-16-2024 End: 06-16-2024 ambulatory Baljinder Jackson Rosendojason DO Work Phone: Hematology/Oncology Comment on above: 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) Start: 06-09-2024 ambulatory Ginna packer RN Work Phone: [employer] Comment on above: CDM (Telephonic outr each/) Start: 06-08-2024 ambulatory Ginna packer RN Work Phone: [employer] Comment on above: CDM (Telephonic outr each/) Start: 05-25-2024 ambulatory Eugenia Kraft [facility] [place] Start: 05-25-2024 Patient encounter procedure Eugenia gordon MA [facility] [place] Comment on above: Population Health Na vigation Outreach (Med Adherence ([place])/) Start: 05-11-2024 ambulatory Ginna packer RN Work Phone: Tele[employer] Support Management Comment on above: CDM (Telephonic outr each/) Start: 05-10-2024 ambulatory Ginna packer RN Work Phone: Tele[employer] Support Management Comment on above: CDM (Telephonic outr each/) Start: 05-05-2024 ambulatory Out of [facility] Doctor Hamida squires:[facility] Start: 04-12-2024 ambulatory Ginna packer RN Work Phone: Telecommunications Support Management Comment on above: CDM (Telephonic outr each/) Start: 03-17-2024 End: 03-17-2024 ambulatory Baljinder Galloway DO Work Phone: Hematology/Oncology Comment on above: 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) Start: 03-17-2024 End: 03-17-2024 Patient encounter procedure Baljinder Galloway DO Work Phone: Hematology/Oncology Start: 03-16-2024 Orders Only Baljinder Nuñez O Work Phone: Hematology/Oncology Comment on above: 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); Macrocytic anemia Start: 03-15-2024 ambulatory Ginna packer RN Work Phone: [employer] Support [employer] Comment on above: CDM (Telephonic outr each/) Start: 03-14-2024 ambulatory Ginna packer RN Work Phone: Tele[employer] Support Management Comment on above: CDM (Telephonic outr each/) Start: 02-29-2024 End: 02-29-2024 Patient encounter procedure Iram Johsnon APRN.OFFICE MACHINES SALES REPRESENTATIVE Work Phone: [facility] Comment on above: Benign hypertension (Primary Dx); 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; Mixed hyperlipidemia; Pacemaker; CHB (complete heart block) (HCC); Chronic atrial fibrillation (HCC); 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 of anticoagulant Encounter for care o f pacemaker (Primary Dx) Start: 02-20-2024 Telephone encounter Ronaldo strange MD Work Phone: Internal Medicine [place] Comment on above: Results Start: 02-15-2024 ambulatory Ginna packer RN Work Phone: [employer] Support [employer] Comment on above: CDM (Telephonic outr each/) Start: 01-22-2024 End: 01-22-2024 Subsequent hospital visit by physician Xr [facility] [place] Work Phone: Radiology Comment on above: Chronic heart failur e with preserved ejection fraction (HCC) [I50.32] Start: 01-22-2024 End: 01-22-2024 Patient encounter procedure Ronaldo Pleitez MD Work Phone: Internal Medicine [place] Comment on above: Medicare annual [facility] visit, subsequent (Primary Dx); Mixed hyperlipidemia; Lymphedema of both lower extremities; Chronic heart failure with preserved ejection fraction (HCC); Hypothyroidism, unspecified type; Primary hypertension; B12 deficiency; Vitamin D deficiency Start: 01-01-2024 ambulatory Ginna packer RN Work Phone: Tele[employer] Support Management Comment on above: CDM (Telephonic outr each/) Start: 12-24-2023 Telephone encounter Ronaldo strange MD Work Phone: Internal Medicine [place] Start: 12-24-2023 End: 12-24-2023 ambulatory Baljinder Galloway DO Work Phone: Hematology/Oncology Comment on above: 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); Macrocytic anemia Start: 12-24-2023 End: 12-24-2023 Patient encounter procedure Baljinder Galloway DO Work Phone: [facility] Start: 12-23-2023 End: 12-23-2023 Patient encounter procedure Ronaldo Pleitez MD Work Phone: Internal Medicine [place] Comment on above: Right elbow pain (Pr imary Dx); Monoarthritis of elbow, 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); MDS (myelodysplastic syndrome) (HCC) Start: 12-23-2023 End: 12-23-2023 Subsequent hospital visit by physician Xr [facility] [place] Work Phone: Radiology Comment on above: Right elbow pain [M2 5.521] Start: 12-21-2023 Telephone encounter Baljinder eric DO Work Phone: Hematology/Oncology Comment on above: Patient Question Start: 12-18-2023 Refill Ronaldo blanton MD Work Phone: Internal Medicine [place] Comment on above: Refill Request Start: 10-07-2023 ambulatory Ginna packer RN Work Phone: Tele[employer] Support Management Comment on above: CDM (Telephonic outr each/) Start: 10-02-2023 Refill Israel Pruitt DO Work Phone: Internal Medicine [place] Comment on above: Refill Request Start: 09-30-2023 End: 09-30-2023 ambulatory Baljinder Galloway DO Work Phone: Hematology/Oncology Comment on above: 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); MDS (myelodysplastic syndrome) (HCC) Start: 09-30-2023 End: 09-30-2023 Patient encounter procedure Baljinder Galloway DO Work Phone: [facility] Start: 09-11-2023 Refill Israel Pruitt DO Work Phone: Internal Medicine [place] Comment on above: Refill Request Start: 09-07-2023 ambulatory Ginna packer RN Work Phone: Tele[employer] Support Management Comment on above: CDM (Telephonic outr each/) Start: 09-07-2023 Refill Israel Cameron Jovannyjuan DO Work Phone: Internal Medicine [place] Comment on above: Refill Request Start: 08-18-2023 Refill Jayashree Farmer APRN.CNP Work Phone: Internal Medicine [place] Comment on above: Refill Request Start: 07-30-2023 Telephone encounter Iram masterson MANAGER DAIRY.OFFICE MACHINES SALES REPRESENTATIVE Work Phone: [facility] Comment on above: Patient Update Start: 07-29-2023 ambulatory Ginna packer RN Work Phone: Tele[employer] Support Management Comment on above: CDM (Telephonic outr each/) Start: 07-24-2023 End: 07-24-2023 Patient encounter procedure Arabella Bates MANAGER DAIRY.OFFICE MACHINES SALES REPRESENTATIVE Work Phone: Internal Medicine [place] Comment on above: Lymphedema of both l ower extremities (Primary Dx); Chronic heart failure with preserved ejection fraction (HCC); Encounter for immunization Start: 07-23-2023 End: 07-23-2023 Patient encounter procedure Iram Johnson MANAGER DAIRY.OFFICE MACHINES SALES REPRESENTATIVE Work Phone: [facility] Comment on above: Chronic atrial fibri llation (HCC) (Primary Dx); Benign hypertension; 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; Mixed hyperlipidemia; 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 of anticoagulant; Pacemaker; CHB (complete heart block) (HCC); PVC's (premature ventricular contractions) Encounter for care o f pacemaker (Primary Dx) Start: 07-02-2023 ambulatory Ginna packer RN Work Phone: Telecommunications Support Management Comment on above: CDM (Telephonic outr each/) Start: 06-22-2023 End: 06-22-[address] Pedro Diaz Work Phone: [facility] Work Phone: Start: 06-22-2023 End: 06-22-[address] Pedro Diaz Work Phone: [facility] Start: 06-22-[address] 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); History of bacteremia; Generalized osteoarthrosis Start: 06-04-2023 ambulatory Ginna packer RN Work Phone: Telecommunications Support Management Comment on above: CDM (Telephonic outr each/) Start: 05-29-2023 End: 05-29-2023 Subsequent hospital visit by physician [facility] Work Phone: Radiology Comment on above: Acute cough [R05.1] Start: 05-26-2023 Telephone encounter Israel Pruitt DO Work Phone: Internal Medicine [place] Comment on above: readmit orders Start: 05-25-2023 Refill Israel Pruitt DO Work Phone: Internal Medicine [place] Start: 05-22-2023 Telephone encounter Shorty Faith MD Work Phone: General Surgery Comment on above: Patient Update (Surg ical site ( port removal )) Start: 05-22-2023 End: 05-22-[address] 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 Ronna Diaz Work Phone: [facility] Work Phone: Start: 05-17-2023 Non-patient / Non-visit Dr. Ronna Diaz Work Phone: [facility] Work Phone: Start: 05-16-2023 Non-patient / Non-visit Dr. Ronna Diaz Work Phone: [facility] Work Phone: Start: 05-15-2023 Non-patient / Non-visit Dr. Ronna Diaz Work Phone: [facility] Start: 05-15-2023 Non-patient / Non-visit Dr. Ronna Diaz Work Phone: [facility] Work Phone: Start: 05-14-2023 End: 05-18-2023 Evaluation and management of inpatient Dr. Ned Dinh Work Phone: [facility] Work Phone: Start: 05-14-2023 Telephone encounter Ileana Sosa RN He matology/Oncology Comment on above: Ab Initio Etl Developer - O ther (Symptoms ) Start: 05-14-2023 Non-patient / Non-visit Dr. 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) Start: 05-13-2023 Telephone encounter Shorty Faith MD Work Phone: General Surgery Comment on above: Medical Records Start: 05-11-2023 End: 05-11-2023 Patient encounter procedure Shorty Faith MD Work Phone: General Surgery Comment on above: MDS (myelodysplastic syndrome) (HCC) (Primary Dx); DVT of axillary vein, chronic right (HCC) Start: 05-11-2023 End: 05-11-2023 ambulatory Treatment Rm 13 [facility] Work Phone: Hematology/Oncology Comment on above: 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) Start: 05-08-2023 End: 05-08-2023 ambulatory Treatment Rm 13 [facility] Work Phone: Hematology/Oncology Comment on above: 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) Start: 05-07-2023 End: 05-07-2023 ambulatory Treatment Rm 13 [facility] Work Phone: Hematology/Oncology Comment on above: 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) Start: 05-07-2023 Telephone encounter David hi APRN.CNP Work Phone: Hematology/Oncology Comment on above: Patient Question; Jb fernandes Update (Update regarding decision making regarding patient's right-sided peripheral CV catheter with port with recent diagnosis right IJ DVT.) Start: 05-06-2023 End: 05-06-2023 ambulatory Ginna Em RN Work Phone: Tele[employer] Support Management Comment on above: CDM (Telephonic outr each/) Start: 05-06-2023 Telephone encounter Baljinder eric DO Work Phone: Hematology/Oncology Comment on above: Imm/Inj (immunizatio n) Results Start: 05-06-2023 End: 05-06-[address] Pedro Diaz Work Phone: [facility] Start: 05-06-[address] 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 Pedro Diaz Work Phone: [facility] Start: 05-04-[address] 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) Start: 05-01-2023 End: 05-01-2023 Patient encounter procedure David Cervantes MANAGER DAIRY.OFFICE MACHINES SALES REPRESENTATIVE Work Phone: [facility] Start: 04-24-2023 Telephone encounter Iram masterson MANAGER DAIRY.OFFICE MACHINES SALES REPRESENTATIVE Work Phone: [facility] Comment on above: Patient Question; Jb fernandes Update Start: 04-21-2023 End: 04-21-2023 Subsequent hospital visit by physician [facility] ([facility]-Stat) Work Phone: Cat Scan Comment on above: Unstable gait [R26.8 1] Start: 04-20-2023 End: 04-20-2023 Patient encounter procedure Israel Pruitt DO Work Phone: Internal Medicine [place] Comment on above: Unstable gait (Prima ry Dx); Postural dizziness; Hypotension due to drugs; Urinary incontinence, unspecified type; Confusion and disorientation; Diplopia; Hypothyroidism, unspecified type; Essential hypertension, benign; PAF (paroxysmal atrial fibrillation) (HCC); MDS (myelodysplastic syndrome) (HCC); Venous stasis of both lower extremities; 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HCC); Vitamin D deficiency Start: 04-16-2023 Chart abstracting Milagro Camacho RN Hematology/Oncology Comment on above: Research (Consent CA [id number]) Start: 04-15-2023 End: 04-15-2023 ambulatory Treatment 13 [facility] Work Phone: Hematology/Oncology Comment on above: 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) Start: 04-10-2023 Telephone encounter Iram masterson APRN.OFFICE MACHINES SALES REPRESENTATIVE Work Phone: [facility] Comment on above: Patient Update Start: 04-10-2023 End: 04-10-2023 ambulatory Treatment 13 [facility] Work Phone: Hematology/Oncology Comment on above: 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) Start: 04-09-2023 End: 04-09-2023 ambulatory Treatment Rm 13 [facility] Work Phone: Hematology/Oncology Comment on above: 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) Start: 04-08-2023 Telephone encounter Ileana Sosa RN He matology/Oncology Comment on above: Ab Initio Etl Developer - O ther (New patient ) Start: 04-08-2023 End: 04-08-2023 ambulatory Treatment Rm 13 [facility] Work Phone: Hematology/Oncology Comment on above: 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) Start: 03-25-2023 End: 03-25-2023 Patient encounter procedure Israel Pruitt DO Work Phone: [facility] [place] Comment on above: Traumatic ecchymosis of foot, right, initial encounter (Primary Dx); Bilateral calf pain; Venous stasis of both lower extremities; Diminished pulses in lower extremity Start: 03-23-2023 ambulatory Eveline Bonilla Work Phone: [facility] Start: 03-23-2023 Follow-up encounter Eveline torres RN Work Phone: Telecommunications Support Management Comment on above: community monitoring outreach (Cdm ED follow up) Start: 03-20-2023 End: 03-20-2023 Emergency department patient visit ISRAEL PRUITT Facility:[facility] Start: 03-20-2023 ambulatory Jennifer Dericmaribeth Wilson MANAGER DAIRY.OFFICE MACHINES SALES REPRESENTATIVE Work Phone: Virtual Medicine Comment on above: Blue toes (Primary D x) Start: 03-20-2023 Telemedicine consult ation with patient Jennifer Rollemaribeth Wilson MANAGER DAIRY.OFFICE MACHINES SALES REPRESENTATIVE Work Phone: MAIN VIRTUAL VISIT Start: 03-19-2023 ambulatory Eveline Bonilla Work Phone: [employer] Comment on above: community monitoring outreach (Cdm telephonic outreach) Start: 03-18-2023 Telephone encounter Israel Pruitt DO Work Phone: [facility] [place] Comment on above: Patient Update Start: 03-17-2023 End: 03-17-2023 ambulatory ISRAEL PRUITT Facility:[facility] Start: 03-17-2023 End: 03-17-2023 ambulatory Chair 8 [employer] Work Phone: Hematology/Oncology Comment on above: 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) Start: 03-16-2023 End: 03-16-2023 ambulatory ISRAEL PRUITT Facility:[facility] Start: 03-16-2023 End: 03-16-2023 ambulatory Chair 2 [employer] Work Phone: Hematology/Oncology Comment on above: 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) Start: 03-13-2023 Telephone encounter Baljinder eric DO Work Phone: Hematology/Oncology Comment on above: New Patient Start: 03-13-2023 End: 03-13-2023 ambulatory ISRAEL PRUITT Facility:[facility] Start: 03-13-2023 End: 03-13-2023 ambulatory Chair 8 [facility] [employer] Phone: Hematology/Oncology Comment on above: 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) Start: 03-12-2023 End: 03-12-2023 Patient encounter procedure Israel Pruitt DO Work Phone: [facility] [place] Comment on above: PAF (paroxysmal atri al fibrillation) (HCC) (Primary Dx); MDS (myelodysplastic syndrome) (HCC); Essential hypertension, benign; Hypothyroidism, unspecified type; Chronic heart failure with preserved ejection fraction (HCC); Constipation due to slow transit; 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HCC); Mixed hyperlipidemia; Vitamin D deficiency Start: 03-12-2023 End: 03-12-2023 ambulatory ISRAEL PRUITT Facility:[facility] Start: 03-12-2023 End: 03-12-2023 ambulatory Chair 7 [employer] Phone: Hematology/Oncology Comment on above: 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) Start: 03-11-2023 End: 03-11-2023 ambulatory ISRAEL PRUITT Facility:[facility] Start: 03-11-2023 End: 03-11-2023 ambulatory Chair 8 [facility] [employer] Phone: Hematology/Oncology Comment on above: 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); Chemotherapy-induced neutropenia (HCC) Start: 03-11-2023 End: 03-11-2023 Patient encounter procedure Randa Rowell DO Work Phone: [facility] [employer] [place] Start: 03-10-2023 End: 03-10-2023 ambulatory ISRAEL PRUITT Facility:[facility] Start: 03-09-2023 End: 03-09-2023 ambulatory ISRAEL PRUITT Facility:[facility] Start: 03-09-2023 End: 03-09-2023 ambulatory Chair 8 [employer] Phone: Hematology/Oncology Comment on above: 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) Start: 02-28-2023 ambulatory Israel Pruitt DO Work Phone: [facility] [place] Comment on above: LOCATION Start: 02-17-2023 End: 02-17-2023 ambulatory ISRAEL PRUITT Facility:[facility] Start: 02-17-2023 End: 02-17-2023 ambulatory Chair 5 [employer] Phone: Hematology/Oncology Comment on above: 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) Start: 02-16-2023 End: 02-16-2023 ambulatory ISRAEL PRUITT Facility:[facility] Start: 02-16-2023 End: 02-16-2023 ambulatory Chair 5 [employer] Phone: Hematology/Oncology Comment on above: 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) Start: 02-13-2023 End: 02-13-2023 ambulatory ISRAEL PRUITT Facility:[facility] Start: 02-13-2023 End: 02-13-2023 ambulatory Chair 7 [facility] [employer] Phone: Hematology/Oncology Comment on above: 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) Start: 02-12-2023 End: 02-12-2023 ambulatory ISRAEL PRUITT Facility:[facility] Start: 02-12-2023 End: 02-12-2023 ambulatory Chair 2 [facility] [employer] Phone: Hematology/Oncology Comment on above: 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) Start: 02-11-2023 End: 02-11-2023 ambulatory ISRAEL PRUITT Facility:[facility] Start: 02-11-2023 End: 02-11-2023 ambulatory Chair 4 [facility] [employer] Phone: Hematology/Oncology Comment on above: 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) Start: 02-10-2023 End: 02-10-2023 ambulatory ISRAEL PRUITT Facility:[facility] Start: 02-10-2023 End: 02-10-2023 ambulatory Chair 7 [facility] [employer] Phone: Hematology/Oncology Comment on above: 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) Start: 02-09-2023 End: 02-09-2023 ambulatory ISRAEL PRUITT Facility:[facility] Start: 02-09-2023 End: 02-09-2023 ambulatory Bed 1 [facility] [employer] Phone: Hematology/Oncology Comment on above: 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) Start: 02-04-2023 End: 02-05-2023 ambulatory ISRAEL PURITT Facility:[facility] Start: 02-04-2023 End: 02-04-2023 ambulatory Randa Rowell DO Work Phone: [facility] Hematology/Oncology Comment on above: 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); Chemotherapy-induced neutropenia (HCC); Macrocytic anemia Start: 02-04-2023 End: 02-04-2023 Patient encounter procedure Randa Rowell [employer] Work Phone: [facility] [employer] Start: 01-30-2023 ambulatory Eveline Pablo Chad Work Phone: Telecommunications Support Management Comment on above: community monitoring outreach (Cdm telephonic outreach) Start: 01-20-2023 End: 01-20-2023 ambulatory ISRAEL PRUITT Facility:[facility] Start: 01-19-2023 End: 01-19-2023 ambulatory ISRAEL PRUITT Facility:[facility] Start: 01-19-2023 End: 01-19-2023 ambulatory Chair 2 [facility] [employer] Phone: Hematology/Oncology Comment on above: 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) Start: 01-16-2023 End: 01-16-2023 ambulatory ISRAEL PRUITT Facility:[facility] Start: 01-16-2023 End: 01-16-2023 ambulatory Chair 5 [employer] Phone: Hematology/Oncology Comment on above: 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) Start: 01-15-2023 End: 01-15-2023 ambulatory ISRAEL PRUITT Facility:[facility] Start: 01-15-2023 End: 01-15-2023 ambulatory Chair 5 [employer] Phone: Hematology/Oncology Comment on above: 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) Start: 01-14-2023 End: 01-14-2023 ambulatory ISRAEL PRUITT Facility:[facility] Start: 01-14-2023 End: 01-14-2023 ambulatory Randa Rowell [employer] Work Phone: [facility] Hematology/Oncology Comment on above: 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); Macrocytic anemia 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) Start: 01-14-2023 End: 01-14-2023 Patient encounter procedure Randa Rowell DO Work Phone: [facility] [employer] Start: 01-13-2023 End: 01-13-2023 Patient encounter procedure Iram Aceves Mio PÉREZOFFICE MACHINES SALES REPRESENTATIVE Work Phone: [facility] Comment on above: Benign hypertension (Primary Dx); 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; Mixed hyperlipidemia; PAF (paroxysmal atrial fibrillation) (HCC); Pacemaker; CHB (complete heart block) (HCC); USP current use of anticoagulant Encounter for care o f pacemaker (Primary Dx) Start: 01-13-2023 End: 01-15-2023 ambulatory ISRAEL PRUITT Facility:[facility] Start: 01-13-2023 End: 01-13-2023 ambulatory Chair 5 [facility] [employer] Phone: Hematology/Oncology Comment on above: 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) Start: 01-12-2023 End: 01-12-2023 ambulatory ISRAEL PRUITT Facility:[facility] Start: 01-12-2023 End: 01-12-2023 ambulatory Bed 1 [facility] [employer] Phone: Hematology/Oncology Comment on above: 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) Start: 01-08-2023 ambulatory Eveline Bonilla Work Phone: Telecommunications Support Management Comment on above: community monitoring outreach (Cdm telephonic outreach) Start: 12-23-2022 End: 12-23-2022 ambulatory ISRAEL PRUITT Facility:[facility] Start: 12-22-2022 End: 12-22-2022 ambulatory Chair 3 [facility] [employer] Phone: Hematology/Oncology Comment on above: 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) Start: 12-19-2022 End: 12-22-2022 ambulatory ISRAEL FELICIANOIA Facility:[facility] Start: 12-18-2022 End: 12-19-2022 ambulatory ISRAEL PRUITT Facility:[facility] Start: 2022 End: 12-18-2022 ambulatory ISRAEL PRUITT Facility:[facility] Start: 2022 End: 2022 ambulatory Chair 8 [employer] [employer] Work Phone: Hematology/Oncology Comment on above: 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) Start: 12-16-2022 End: 2022 ambulatory RANDA ROWELL Facility:[facility] Start: 12-15-2022 Telephone encounter Linda Pollock PG Hematology/Oncology Comment on above: Benefits Investigati on Start: 12-15-2022 End: 12-16-2022 ambulatory RANDA ROWELL Facility:[facility] Start: 12-15-2022 End: 12-15-2022 ambulatory Bed 2 [facility] [employer] Work Phone: Hematology/Oncology Comment on above: 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) Start: 12-11-2022 End: 12-11-2022 Patient encounter procedure Israel Pruitt DO Work Phone: [facility] [place] Comment on above: 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 remission (HCC) (Primary Dx); Malnutrition of moderate degree (HCC); Chronic heart failure with preserved ejection fraction (HCC); PAF (paroxysmal atrial fibrillation) (HCC); Essential hypertension, benign; Hx of four vessel coronary artery bypass graft; Numbness and tingling of left arm and leg; Constipation due to slow transit; 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HCC); Restless legs syndrome with nocturnal myoclonus; Mixed hyperlipidemia; Spinal stenosis of lumbar region with neurogenic claudication; Hypothyroidism, unspecified type; Iron deficiency; Vitamin D deficiency Start: 12-05-2022 ambulatory MAJNEET BUTLER Facility[facility] Start: 12-05-2022 End: 12-05-2022 Subsequent hospital visit by physician Manjeet Butler MD Work Phone: [facility] Comment on above: 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) [C93.10] Start: 12-04-2022 End: 12-05-2022 ambulatory Skye Aceves Tg SALAZAR.OFFICE MACHINES SALES REPRESENTATIVE Work Phone: [facility] Hematology/Oncology Comment on above: 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); Other specified counseling Start: 12-04-2022 End: 12-04-2022 Patient encounter procedure Skye Robyn Tg SALAZAR.OFFICE MACHINES SALES REPRESENTATIVE Work Phone: [facility] Start: 11-26-2022 End: 11-27-2022 ambulatory [facility] Facility:[facility] Start: 11-26-2022 Telephone encounter Randa myers DO Work Phone: [facility] Hematology/Oncology Comment on above: Appointment Start: 11-26-2022 End: 11-26-2022 ambulatory [facility] Facility:[facility] Start: 11-26-2022 End: 11-26-2022 ambulatory Randa Sindel DO Work Phone: [facility] Hematology/Oncology Comment on above: 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) Start: 11-26-2022 End: 11-26-2022 Patient encounter procedure Randa Sindel DO Work Phone: [employer] Start: 11-20-2022 Refill Israel Pruitt DO Work Phone: [facility] [place] Comment on above: Refill Request Start: 11-06-2022 Telephone encounter Christa Paris RN [facility] Comment on above: ak HFC question Start: 11-05-2022 End: 11-06-2022 ambulatory Randa Sindel DO Work Phone: [facility] Hematology/Oncology Comment on above: MDS (myelodysplastic syndrome) (HCC) (Primary Dx); Macrocytic anemia Start: 11-05-2022 End: 11-05-2022 Patient encounter procedure Randa Sindel DO Work Phone: [employer] Start: 10-24-2022 ambulatory ISRAEL HAMZAHDEVENDRA PRUITT Facility:[facility] Start: 10-24-2022 End: 10-24-2022 Subsequent hospital visit by physician Jesus Manuel White MD Work Phone: [facility] Comment on above: Macrocytic anemia [D 53.9] Start: 10-23-2022 End: 10-23-2022 Refill Israel Pruitt DO Work Phone: [facility] [place] Comment on above: Refill Request Patient Question Impending cerebrovas cular accident (HCC) (Primary Dx); Cerebral artery occlusion with cerebral infarction (HCC); Paresthesia Start: 10-16-2022 End: 10-17-2022 ambulatory ISRAEL PRUITT Facility:[facility] Start: 10-16-2022 End: 10-16-2022 Patient encounter procedure Tara Neal APRN.OFFICE MACHINES SALES REPRESENTATIVE Work Phone: [facility] Comment on above: Chronic heart failur e with preserved ejection fraction (HCC) [I50.32 (ICD-10-CM)] (Primary Dx) Start: 10-09-2022 Telephone encounter Randalouis Avelartrice myers DO Work Phone: [facility] Hematology/Oncology Comment on above: Orders (Bone Marrow Biopsy) Start: 10-09-2022 End: 10-09-2022 ambulatory ISRAEL PRUITT Facility:[facility] Start: 10-09-2022 End: 10-09-2022 ambulatory Randa Avelardel DO Work Phone: [facility] Hematology/Oncology Comment on above: Macrocytic anemia (P rimary Dx) Start: 10-09-2022 End: 10-09-2022 Patient encounter procedure Randa Sindel DO Work Phone: [facility] [email or web address] [place] Start: 10-06-2022 End: 10-06-2022 ambulatory Rosa Garcia OT/[facility] [place] Comment on above: Impending cerebrovas cular accident (HCC) (Primary Dx); Cerebral artery occlusion with cerebral infarction (HCC); Numbness in cervical dermatome distribution; Paresthesia Start: 10-01-2022 End: 10-01-2022 Patient encounter procedure [facility] Alyssa Work Phone: [facility] Cardiology Comment on above: Pacemaker (Primary D x); PAF (paroxysmal atrial fibrillation) (HCC) Start: 09-29-2022 Telephone encounter Israel Pruitt DO Work Phone: [facility] [place] Comment on above: Patient Update Start: 09-25-2022 End: 09-25-2022 Patient encounter procedure Israel Pruitt DO Work Phone: [facility] [place] Comment on above: Complete heart block (HCC) (Primary Dx); Paroxysmal atrial fibrillation (HCC); Hx of four vessel coronary artery bypass graft; Essential hypertension, benign; Anemia, unspecified type; Numbness and tingling of left arm and leg; Iron deficiency; Constipation due to slow transit; Ankle edema, bilateral Start: 09-23-2022 Telephone encounter Israel Pruitt DO Work Phone: [facility] [place] Comment on above: Patient Question; Ap pointment Start: 09-19-2022 ambulatory Lena Cruz RN [facility] Start: 09-19-2022 Telephone encounter Minerva Herbert RN [facility] Comment on above: Appointment Transition Of Care Transition Of Care ( TCM Pharmacy-Hospital discharge 09/18/22/) Start: 09-17-2022 Telephone encounter Israel Pruitt DO Work Phone: [facility] [place] Comment on above: Patient Update; Alfredo torres Start: 09-16-2022 Telephone encounter Israel Pruitt DO Work Phone: [facility] [place] Comment on above: Patient Update Start: 09-11-2022 End: 09-11-2022 Patient encounter procedure Israel Pruitt DO Work Phone: [facility] [place] Comment on above: 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HCC) (Primary Dx); Right pontine stroke (HCC); Numbness and tingling of left arm and leg; Paroxysmal atrial fibrillation (HCC); Essential hypertension, benign; Anemia, unspecified type; Iron deficiency; Restless legs syndrome with nocturnal myoclonus; Hx of four vessel coronary artery bypass graft; Ankle edema, bilateral; Constipation due to slow transit; Mixed hyperlipidemia; Spinal stenosis of lumbar region with neurogenic claudication; Hypothyroidism, unspecified type; Abnormality of gait following cerebrovascular accident Start: 09-11-2022 Telephone encounter Israel Pruitt DO Work Phone: [facility] [place] Comment on above: Occupation Therapy P ree of care Start: 09-10-2022 ambulatory Israel Pruitt DO Work Phone: [facility] [place] Comment on above: Stomach Start: 09-08-2022 Patient Outreach Lena Cruz RN I [facility] [place] Comment on above: Transition Of Care Start: 09-05-2022 Telephone encounter Israel Pruitt DO Work Phone: [facility] [place] Comment on above: Patient Update Start: 09-03-2022 Telephone encounter Israel Pruitt DO Work Phone: [facility] [place] Comment on above: Patient Question Start: 08-22-2022 Anticoagulant drug monitoring Vaishali Ng MD, PhD Work Phone: Neurosurgery Comment on above: Cerebrovascular acci dent (CVA), unspecified mechanism (HCC) (Primary Dx); Primary hypertension; Atrial fibrillation, unspecified type (HCC); Current use of roller print tender anticoagulation Start: 08-22-2022 Telemedicine consult ation with patient Vaishali Ng MD, PhD Work Phone: [facility] Start: 08-14-2022 Refill Israel Pruitt DO Work Phone: [facility] [place] Comment on above: Refill Request Start: 08-07-2022 Patient Outreach Tere eden RN Work Phone: [employer] Comment on above: Transition Of Care ( TCM F/U) Start: 08-05-2022 Refill Israel Pruitt DO Work Phone: [facility] [place] Start: 07-29-2022 End: 07-29-2022 ambulatory BALJINDER Sadie TREVIZO Facility:[facility] Start: 07-25-2022 Patient Outreach Tere eden RN Work Phone: Telecommunications Support Management Comment on above: Transition Of Care ( TCM F/U) Start: 07-24-2022 End: 07-24-2022 Patient encounter procedure Israel Pruitt DO Work Phone: [facility] [place] Comment on above: 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 (Primary Dx); Hypothyroidism, unspecified type; Paroxysmal atrial fibrillation (HCC); Essential hypertension, benign; Anemia, unspecified type; Iron deficiency; Primary hypertension; Restless legs syndrome with nocturnal myoclonus; Hx of four vessel coronary artery bypass graft; Ankle edema, bilateral; Constipation due to slow transit; Mixed hyperlipidemia; Immunization due; Vitamin D deficiency; Pure hypercholesterolemia Start: 07-24-2022 End: 07-25-2022 ambulatory ISRAEL PRUITT Facility:[facility] Start: 07-22-2022 Telephone encounter Baljinder bonilla MD Work Phone: Pain Management Comment on above: Consult Start: 07-17-2022 End: 07-18-2022 ambulatory ISRAEL PRUITT Facility:[facility] Start: 07-17-2022 End: 07-17-2022 Patient encounter procedure Rosa Gonzalez PA-C Work Phone: [facility] Comment on above: Chronic heart failur e with preserved ejection fraction (HCC) (Primary Dx) Start: 07-10-2022 Patient Outreach Telma Thorpe RN [facility] Management Comment on above: Transition Of Care ( TCM Hospital Discharge 07/09/22) Orders (HFC order co ntact/appt) Patient Update Start: 07-09-2022 Telephone encounter Israel Pruitt DO Work Phone: [facility] [place] Comment on above: Home Health Orders Start: 07-04-2022 End: 07-09-2022 Evaluation and management of inpatient ISRAEL PRUITT Facility:[facility] Start: 07-04-2022 End: 07-04-2022 Emergency department patient visit ISRAEL PRUITT Facility:[facility] Start: 07-04-2022 ambulatory Israel Pruitt DO Work Phone: Internal [facility] [place] Comment on above: Reporting Start: 07-03-2022 Orders Only Baljinder Trevizo MD Work Phone: Pain Management Comment on above: 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 (Primary Dx); Arthropathy of lumbar facet joint Start: 06-13-2022 Telephone encounter Baljinder bonilla MD Work Phone: Pain Management Comment on above: Consult (Injection); Schedule Injection; Cardiac Clearance Start: 06-10-2022 End: 06-10-2022 Patient encounter procedure Iram Johnson MANAGER DAIRY.OFFICE MACHINES SALES REPRESENTATIVE Work Phone: [facility] Cardiology Comment on above: Benign hypertension (Primary Dx); 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; Mixed hyperlipidemia; PAF (paroxysmal atrial fibrillation) (HCC); USP current use of anticoagulants with INR goal of 2.0-3.0; RBBB; PVC's (premature ventricular contractions) Start: 06-04-2022 End: 06-04-2022 Subsequent hospital visit by physician Xr [facility] 3 RADIO GEN [facility] Comment on above: Pes anserine bursiti s [M70.50] Start: 06-04-2022 Telephone encounter Israel Pruitt DO Work Phone: [facility] [place] Comment on above: Radiology XR Start: 06-02-2022 Telephone encounter Israel Pruitt DO Work Phone: [facility] [place] Comment on above: Results, Lab Start: 05-30-2022 Telephone encounter Jayashree kearney MANAGER DAIRY.OFFICE MACHINES SALES REPRESENTATIVE Work Phone: [facility] [place] Comment on above: Opened In Error Start: 05-29-2022 End: 05-29-2022 Patient encounter procedure Israel Pruitt DO Work Phone: [facility] [place] Comment on above: Pes anserine bursiti s (Primary Dx); Acute pain of right knee; Primary insomnia; Spinal stenosis of lumbar region with neurogenic claudication; Paroxysmal atrial fibrillation (HCC); Essential hypertension, benign Start: 05-28-2022 ambulatory Laron Jorgensen ms, PA-C Work Phone: [facility] [place] Comment on above: Lumbar MRI results Start: 05-28-2022 E-mail encounter melissa m caregiver Laron Fortune PA-C Work Phone: [facility] Start: 05-26-2022 ambulatory ISRAEL PRUITT Facility:[facility] Start: 05-26-2022 End: 05-26-2022 Subsequent hospital visit by physician Bibiana Yang (1.5t) RADIO MRI [facility] Comment on above: 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 [M48.062] Start: 05-26-2022 Telephone encounter Israel Pruitt DO Work Phone: [facility] [place] Comment on above: Appointment Start: 05-15-2022 ambulatory Israel Pruitt DO Work Phone: [facility] [place] Comment on above: New Information Start: 05-08-2022 End: 05-08-2022 Patient encounter procedure Laron Fortune PA-C Work Phone: [facility] [place] Comment on above: 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 Start: 04-17-2022 Refill Israel Pruitt DO Work Phone: [facility] [place] Comment on above: Refill Request Start: 04-11-2022 End: 04-11-2022 ambulatory Eyal Rodrigues [facility] Comment on above: 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 (Primary Dx); Chronic bilateral low back pain without sciatica Start: 04-04-2022 End: 04-04-2022 ambulatory Eyal Rodrigues [facility] Comment on above: 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 (Primary Dx); Chronic bilateral low back pain without sciatica Start: 04-02-2022 Telephone encounter Israel Pruitt DO Work Phone: [facility] [place] Comment on above: Results, Lab Start: 03-28-2022 End: 03-28-2022 ambulatory Eyal Rodrigues [facility] Comment on above: 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 (Primary Dx); Chronic bilateral low back pain without sciatica Start: 03-24-2022 Telephone encounter Guillermina galeas APRN.OFFICE MACHINES SALES REPRESENTATIVE Work Phone: [facility] [place] Comment on above: Results Start: 03-21-2022 End: 03-21-2022 Patient encounter procedure Guillermina Cummings APRN.OFFICE MACHINES SALES REPRESENTATIVE Work Phone: [facility] [place] Comment on above: Leg swelling (Primar y Dx); Primary hypertension Start: 03-21-2022 End: 03-21-2022 ambulatory Sanket Solo PT Work Phone: [facility] Comment on above: Chronic bilateral lo w back pain without sciatica (Primary Dx); Spinal stenosis of lumbar region with neurogenic claudication Start: 03-18-2022 End: 03-18-2022 ambulatory Israel Pruitt DO Work Phone: [facility] [place] Comment on above: Anemia, unspecified type (Primary Dx); Iron deficiency; Macrocytosis; Restless legs syndrome with nocturnal myoclonus; Spinal stenosis of lumbar region with neurogenic claudication; Paroxysmal atrial fibrillation (HCC); Hypothyroidism, unspecified type; Hx of four vessel coronary artery bypass graft; Ankle edema, bilateral; Mixed hyperlipidemia; Essential hypertension, benign; Constipation due to slow transit Start: 03-18-2022 End: 03-18-2022 Telemedicine consultation with patient Israel Pruitt DO Work Phone: [facility] Start: 03-12-2022 End: 03-12-2022 Subsequent hospital visit by physician Fer Yang [facility] Comment on above: 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 [M48.062] Start: 02-26-2022 End: 02-26-2022 Patient encounter procedure Guillermina Cummings APRN.OFFICE MACHINES SALES REPRESENTATIVE Work Phone: [facility] [place] Comment on above: Chronic midline low back pain without sciatica (Primary Dx); Spinal stenosis of lumbar region with neurogenic claudication Start: 02-20-2022 Refill Israel Pruitt DO Work Phone: [facility] [place] Comment on above: Refill Request Medication Start: 02-17-2022 Refill Israel Pruitt DO Work Phone: [facility] [place] Comment on above: Refill Request Start: 02-09-2022 ambulatory Israel Pruitt DO Work Phone: [facility] [place] Comment on above: Medication Start: 02-09-2022 E-mail encounter melissa aceves caregiver Iram Johnson MANAGER DAIRY.OFFICE MACHINES SALES REPRESENTATIVE Work Phone: [facility] Start: 02-09-2022 Patient encounter procedure Ro se Robyn Johnson MANAGER DAIRY.OFFICE MACHINES SALES REPRESENTATIVE Work Phone: [facility] Cardiology Comment on above: Appointment Request (HM) Start: 09-28-2020 End: 09-28-2020 Patient encounter procedure Laron Arreola MD Work Phone: [facility] Work Phone: Procedures Date Procedure Procedure Detail Performing Clinician Start: 04-07-2025 Ecg routine ecg w/le ast 12 lds i&r only Iram Johnson MANAGER DAIRY.OFFICE MACHINES SALES REPRESENTATIVE Work Phone: Start: 07-29-2024 Adult depression scr eening assessment Ronaldo Pleitez MD Work Phone: Start: 01-22-2024 Radiologic exam ches t 2 views Ronaldo Pleitez MD Work Phone: Start: 12-23-2023 Radex elbow complete minimum 3 views Ronaldo Pleitez MD Work Phone: Start: 07-24-2023 INFLUENZA VACCINE, P RSV FREE, AGE 65+ YR, HIGH DOSE, QUADRIVALENT (FLUZONE HIGH-DOSE) Arabella Older MANAGER DAIRY.OFFICE MACHINES SALES REPRESENTATIVE Work Phone: Start: 05-29-2023 Radiologic exam ches t 2 views Baljinder Galloway DO Work Phone: Start: 05-17-2023 Bacteria identified in Blood by Culture Dr. Pedro Diaz Work Phone: Start: 05-14-2023 Plain chest X-ray Dr. Karey Dinh Work Phone: Start: 05-04-2023 Blood count complete auto&auto difrntl wbc Baljinder Galloway DO Work Phone: Start: 04-21-2023 Ct head/brain w/o co ntrast material Israel Pruitt DO Work Phone: Start: 03-09-2023 Blood count complete auto&auto difrntl wbc Randa Sindel DO Work Phone: Start: 02-09-2023 Blood count complete auto&auto difrntl wbc Randa Sindel DO Work Phone: Start: 01-12-2023 Blood count complete auto&auto difrntl wbc Randa Sindel DO Work Phone: Start: 12-15-2022 Blood count complete auto&auto difrntl wbc Randa Sindel DO Work Phone: Start: 10-24-2022 Blood count complete auto&auto difrntl wbc Jesus Manuel White MD Work Phone: Start: 10-24-2022 Diagnostic bone bonnie ow biopsies & aspirations Randa Sindel DO Work Phone: Start: 10-24-2022 Prothrombin time Les White MD Work Phone: Start: 07-24-2022 INFLUENZA SEASONAL QUADRIVALENT HIGH DOSE AGE 65+ Israel Pruitt DO Work Phone: Start: 07-24-2022 [employer] COVI D-19 BIVALENT BOOSTER VACCINE, AGE 12+ YR Israel Pruitt DO Work Phone: Start: 07-07-2022 Echocardiography ANN MARIEAE L TIRMONIA Start: 07-04-2022 Electrocardiogram TAYLOR EL TIRMONIA Start: 06-04-2022 Radiologic examinati on knee 1/2 views Israel Pruitt DO Work Phone: Start: 05-26-2022 Mri spinal canal lum bar w/o contrast material Laron Fortune PA-C Work Phone: Start: 03-12-2022 Radex spine lumbosac ral minimum 4 views Laron Fortune PA-C Work Phone: Start: 07-10-2021 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 Iram Mio MANAGER DAIRY.OFFICE MACHINES SALES REPRESENTATIVE Work Phone: Start: 09-28-2020 End: 09-28-2020 Blood pressure within normal parameters - no follow-up required Laron Arreola MD Work Phone: Start: 09-28-2020 End: 09-28-2020 BMI documented as above normal parameters - follow-up documented Laron Arreola MD Work Phone: Start: 09-28-2020 End: 09-28-2020 Documentation of current medications Laron Arreola MD Work Phone: Start: 09-28-2020 End: 09-28-2020 Pain assessment documented as negative - follow-up not required Laron Arreola MD Work Phone: Start: 09-28-2020 End: 09-28-2020 Tobacco non-user Laron Arreola MD Work Phone: History of coronary artery bypass grafting Hx of four vessel coronary artery bypass graft Israel Pruitt DO Work Phone: History of coronary artery bypass grafting Hx of four vessel coronary artery bypass graft Israel Pruitt DO Work Phone: History of coronary artery bypass grafting Hx of four vessel coronary artery bypass graft Israel Pruitt DO Work Phone: History of coronary artery bypass grafting Hx of four vessel coronary artery bypass graft Israel Pruitt DO Work Phone: History of coronary artery bypass grafting Hx of four vessel coronary artery bypass graft Israel Pruitt DO Work Phone: 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 Eveline Dean RN Work Phone: NEGATED: Highlighted rowStart: 09-28-2020 End: 09-28-2020 Documentation of current medications Bettye Alegre LPN Plan of Treatment Date Care Activity Detail Author Start: 04-14-2028 Diabetes Screening Diabetes Screenin [facility] Start: 03-31-2028 Diabetes Screening Diabetes Screenin g [facility] Start: 01-21-2028 Diabetes Screening Diabetes Screenin g [facility] Start: 01-06-2028 Diabetes Screening Diabetes Screenin charles [facility] Start: 09-15-2027 Diabetes Screening Diabetes Screenin g [facility] Start: 06-16-2027 Diabetes Screening Diabetes Screenin g [facility] Start: 03-17-2027 Diabetes Screening Diabetes Screenin g [facility] Start: 02-17-2027 Diabetes Screening Diabetes Screenin charles [facility] Start: 01-20-2027 Diabetes Screening Diabetes Screenin charles [facility] Start: 12-24-2026 Diabetes Screening Diabetes Screenin g [facility] Start: 09-30-2026 Diabetes Screening Diabetes Screenin charles [facility] Start: 08-06-2026 Diabetes Screening Diabetes Screenin g [facility] Start: 06-25-2026 DIABETES SCREEN DIABETES SCREEN [facility] Start: 06-25-2026 Diabetes Screening Diabetes Screenin g [facility] Start: 05-28-2026 DIABETES SCREEN DIABETES SCREEN [facility] Start: 05-14-2026 DIABETES SCREEN DIABETES SCREEN [facility] Start: 05-01-2026 DIABETES SCREEN DIABETES SCREEN [facility] Start: 04-17-2026 End: 04-17-2026 Patient encounter procedure [facility] EPS 220 Comment on above: bio and rc Start: 04-08-2026 DIABETES SCREEN DIABETES SCREEN [facility] Start: 03-27-2026 Covid-19 Vaccine (8 - Pfizer risk ) Covid-19 Vaccine (8 - Pfizer risk ) [facility] Comment on above: Postponed from 02/27 (Declined at this time) Start: 03-20-2026 DIABETES SCREEN DIABETES SCREEN [facility] Start: 03-11-2026 DIABETES SCREEN DIABETES SCREEN [facility] Start: 03-09-2026 DIABETES SCREEN DIABETES SCREEN [facility] Start: 02-09-2026 DIABETES SCREEN DIABETES SCREEN [facility] Start: 02-04-2026 DIABETES SCREEN DIABETES SCREEN [facility] Start: 01-20-2026 Hepatitis B surface antibody level LDL Cholesterol [facility] Start: 01-12-2026 DIABETES SCREEN DIABETES SCREEN [facility] Start: 12-15-2025 DIABETES SCREEN DIABETES SCREEN [facility] Start: 10-07-2025 DIABETES SCREEN DIABETES SCREEN [facility] Start: 09-18-2025 DIABETES SCREEN DIABETES SCREEN [facility] Start: 09-16-2025 DIABETES SCREEN DIABETES SCREEN [facility] Start: 09-15-2025 Hepatitis B surface antibody level LDL Cholesterol [facility] Start: 09-04-2025 DIABETES SCREEN DIABETES SCREEN [facility] Start: 08-28-2025 DIABETES SCREEN DIABETES SCREEN [facility] Start: 08-22-2025 DIABETES SCREEN DIABETES SCREEN [facility] Start: 08-04-2025 End: 08-04-2025 ambulatory [place] [facility] Laboratory Comment on above: (SO)CBC(?TX)* Q2WK ?ARANESP/LAB EA RLY* Start: 08-02-2025 End: 08-02-2025 Patient encounter procedure [facility] [place] Comment on above: follow up 6 months Start: 07-29-2025 Anxiety Screening Anxiety Screening [facility] Start: 07-29-2025 Depression Screening Depression Scre [facility] Start: 07-25-2025 Urine microalbumin profile [facility] Start: 07-24-2025 DIABETES SCREEN DIABETES SCREEN [facility] Start: 07-21-2025 End: 07-21-2025 ambulatory [place] [facility] Laboratory Comment on above: (SO)CBC(?TX)* Q2WK ?ARANESP/LAB EA RLY* Start: 07-11-2025 End: 07-11-2025 ambulatory [place] [facility] Laboratory Comment on above: (SO)CBC(?TX)* Q2WK ?ARANESP/LAB EA RLY* Start: 07-10-2025 Influenza vaccination Influenza Vacc ine (#1) [facility] Start: 07-09-2025 DIABETES SCREEN DIABETES SCREEN [facility] Start: 07-07-2025 End: 07-07-2025 ambulatory Hematology/Oncology Comment on above: 3 MO OV/LAB EARLY* Q2WK ?ARANESP/LAB&OV EARLY* Start: 07-07-2025 End: 07-07-2025 ambulatory 07/07/2025 9:30 AM EDT Results Only [place] Ign[place] [facility] Laboratory [address] [place] [address] /CBC/CMP/iron studies/erythropoietin/ B12/MMA/serum folate* [facility] Comment on above: /CBC/CMP/iron studie s/erythropoietin/B12/MMA/serum folate* Start: 07-04-2025 DIABETES SCREEN DIABETES SCREEN [facility] Start: 06-23-2025 End: 06-23-2025 ambulatory [facility] Comment on above: (SO)CBC(?TX)* Q2WK ?ARANESP/LAB EA RLY* Start: 06-09-2025 End: 06-09-2025 ambulatory [facility] Comment on above: (SO)CBC(?TX)* Q2WK ?ARANESP/LAB EA RLY* Start: 06-05-2025 End: 06-05-2025 Patient encounter procedure 06/05/2025 2:40 PM EDT Office Visit [facility] [place] [address] [place] [address] Arabella Moreno, MANAGER DAIRY.OFFICE MACHINES SALES REPRESENTATIVE [address] [place] [address] wound recheck [facility] [place] Comment on above: wound recheck Start: 05-29-2025 End: 05-29-2025 Patient encounter procedure 05/29/2025 2:40 PM EDT Office Visit [facility] [place] [address] [place] [address] Arabella Moreno, MANAGER DAIRY.OFFICE MACHINES SALES REPRESENTATIVE [address] [place] [address] follow up skin tears [facility] [place] Comment on above: follow up skin tears Start: 05-26-2025 End: 05-26-2025 ambulatory [facility] Comment on above: (SO)CBC(?TX)* Q2WK ?ARANESP/LAB EA RLY* Start: 05-11-2025 End: 05-11-2025 ambulatory [facility] Comment on above: (SO)CBC(?TX)* Q2WK ?ARANESP/LAB EA RLY* Start: 04-28-2025 End: 04-28-2025 ambulatory [facility] Comment on above: (SO)CBC(?TX)* Q2WK ?ARANESP/LAB EA RLY* Start: 04-20-2025 End: 07-20-2025 Basic metabolic 2000 panel - Serum or Plasma BASIC METABOLIC PANEL Lab Routine Lymphedema of right lower extremity Expected: 04/20/2025, Expires: 07/20/2025 [facility] Work Phone: Comment on above: Expected: 04/20/2025 , Expires: 07/20/2025 Start: 04-14-2025 End: 04-14-2025 ambulatory [facility] Comment on above: (SO)CBC(?TX)* Q2WK ?ARANESP/LAB EA RLY/AUTH EXP 05/09/25* Q2WK ?ARANESP/LAB EA RLY* Start: 04-07-2025 End: 04-07-2025 Patient encounter procedure [facility] Comment on above: bio and rc Start: 03-31-2025 End: 06-30-2025 Basic metabolic 2000 panel - Serum or Plasma BASIC METABOLIC PANEL Lab Routine Lymphedema of right lower extremity Lymphedema of both lower extremities Expected: 03/31/2025, Expires: 06/30/2025 [facility] Comment on above: Expected: 03/31/2025 , Expires: 06/30/2025 Start: 03-31-2025 End: 06-30-2025 Natriuretic peptide.B prohormone N-Terminal [Mass/volume] in Serum or Plasma NT PRO BNP Lab Routine Lymphedema of right lower extremity Lymphedema of both lower extremities Expected: 03/31/2025, Expires: 06/30/2025 [facility] Comment on above: Expected: 03/31/2025 , Expires: 06/30/2025 Start: 03-31-2025 End: 03-31-2025 ambulatory [facility] Comment on above: (SO)CBC(?TX)* Q2WK ?ARANESP/LAB EA RLY/AUTH EXP 05/09/25* 3 MO OV/LAB&INJ ROSAMARIA Y* Start: 03-28-2025 End: 03-28-2025 Patient encounter procedure 03/28/2025 2:30 PM EDT Appointment Radiology [address] [place] [id number] : Lymphedema of right lower extremity [I89.0]; Lymphedema of both lower extremities [I89.0] Radiology Comment on above: : Lymphedema of righ t lower extremity [I89.0]; Lymphedema of both lower extremities [I89.0] Start: 03-17-2025 End: 03-17-2025 ambulatory [facility] Comment on above: (SO)CBC(?TX)* Q2WK ?ARANESP/LAB EA RLY/AUTH EXP 05/09/25* Start: 03-12-2025 DIABETES SCREEN DIABETES SCREEN [facility] Start: 03-03-2025 End: 03-03-2025 ambulatory [facility] Comment on above: (SO)CBC(?TX)* Q2WK ?ARANESP/LAB EA RLY/AUTH EXP 05/09/25* 3 MO OV DUE END OF MARCH REF TE 01/06 FOR LABS Start: 02-27-2025 Covid-19 Vaccine (8 - Pfizer risk season) Covid-19 Vaccine (8 - Pfizer risk season) [facility] Start: 02-17-2025 End: 02-17-2025 [facility] Laboratory Comment on above: (SO)CBC(?TX)* Q2WK ?ARANESP/LAB EA RLY/AUTH EXP 05/09/25* Q2WK ?ARANESP/LAB EA RLY/AUTH EXP 05/09/25* 3 MO OV DUE END OF MARCH Start: 02-03-2025 End: 02-03-2025 [facility] Laboratory Comment on above: (SO)CBC(?TX)* Q2WK ?ARANESP/LAB EA RLY/AUTH EXP 05/09/25* Start: 01-31-2025 End: 01-31-2025 Patient encounter procedure 01/31/2025 11:00 AM EDT Office Visit [facility] [place] [address] [facility] [place] [address] Arabella Moreno, MANAGER DAIRY.OFFICE MACHINES SALES REPRESENTATIVE [address] [facility] [place] [address] Medicare Wellness [facility] [place] Comment on above: Medicare Wellness Start: 01-26-2025 End: 04-27-2025 Comprehensive metabolic 2000 panel - Serum or Plasma COMPREHENSIVE METABOLIC PANEL Lab Routine Mixed hyperlipidemia Expected: 01/26/2025, Expires: 04/27/2025 [facility] Work Phone: Comment on above: Expected: 01/26/2025 , Expires: 04/27/2025 Start: 01-26-2025 End: 04-27-2025 Lipid 1996 panel - Serum or Plasma LIPID PANEL BASIC Lab Routine Mixed hyperlipidemia Expected: 01/26/2025, Expires: 04/27/2025 [facility] Comment on above: Expected: 01/26/2025 , Expires: 04/27/2025 Start: 01-26-2025 End: 04-27-2025 Thyrotropin [Units/volume] in Serum or Plasma THYROID STIMULATING HORMONE Lab Routine Hypothyroidism, unspecified type Expected: 01/26/2025, Expires: 04/27/2025 [facility] Comment on above: Expected: 01/26/2025 , Expires: 04/27/2025 Start: 01-20-2025 End: 01-20-2025 ambulatory [facility] Comment on above: (SO)CBC(?TX)* Q2WK ?ARANESP/LAB EA RLY/AUTH EXP 05/09/25* Start: 01-10-2025 End: 01-10-2025 ambulatory Hematology/Oncology Comment on above: CBC/CMP/IRON/ERTHROP OIETIN/B12/MMA/SERUM FOLATE* 3MO OV/EARLY LABS* Start: 01-06-2025 End: 01-06-2025 ambulatory [facility] Comment on above: QMO (SO) CBC(?TX) Q2WK ?ARANESP/LAB EA RLY/AUTH EXP?* (SO)CBC(?TX)/CMP(S)/ IRON STUDIES/ERYTHROPOIETIN/ Q2WK ?ARANESP/LAB EA RLY/AUTH EXP 05/09/25* 3MO OV/LAB&INJ EARLY * Start: 12-30-2024 End: 12-30-2024 Patient encounter procedure 12/30/2024 2:15 PM EST Office Visit [facility] [address] [place] [address] bio [facility] Comment on above: bio Start: 12-23-2024 End: 12-23-2024 ambulatory [place] Ign[place] [facility] Laboratory Comment on above: CBC Q2WK ?ARANESP/LAB EA RLY/AUTH EXP?* (SO)CBC(?TX)* Q2WK ?ARANESP/LAB EA RLY/AUTH EXP 05/09/25* Start: 12-13-2024 End: 12-13-2024 ambulatory 12/13/2024 11:00 AM EST Results Only [place] [facility] [address] [place] [address] MONTHLY/(SO)CBC(?TX)* [place] [facility] Comment on above: MONTHLY/(SO)CBC(?TX) * Start: 12-09-2024 End: 12-09-2024 ambulatory [place] [facility] Laboratory Comment on above: QMO (SO) CBC(?TX) Q2WK ?ARANESP/LAB EA RLY/AUTH EXP?* (SO)CBC(?TX)* Q2WK ?ARANESP/LAB EA RLY/AUTH EXP 05/09/25* Start: 11-24-2024 End: 11-24-2024 ambulatory [place] [facility] Laboratory Comment on above: CBC START Q2WK ?ARANESP/ LAB EARLY/AUTH EXP?* Start: 11-15-2024 End: 11-15-2024 ambulatory 11/15/2024 11:00 AM EST Results Only [place] [facility] [address] [place] [address] MONTHLY/(SO)CBC(?TX)ERT HROPOIETIN* [place] [facility] Laboratory Comment on above: MONTHLY/(SO)CBC(?TX) ERTHROPOIETIN* Start: 11-12-2024 DIABETES SCREEN DIABETES SCREEN [facility] Start: 11-09-2024 Advance Directive Discussion Advance Directive Discussion [facility] Start: 10-11-2024 End: 10-11-2024 ambulatory [facility] Comment on above: (SO)CBC* (SO)CBC/1 MO OV* (MA SCI) (SO)CBC(?TX)* (LAB EARLY)1 MO OV* Start: 09-27-2024 End: 10-27-2025 NM Heart Perfusion W stress and W radionuclide IV NM CARDIAC PERF STRESS/PHARM Radiology Routine 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 Encounter for screening for cardiovascular disorders SOB (shortness of breath) Expected: 09/27/2024, Expires: 10/27/2025 [facility] Work Phone: Comment on above: Expected: 09/27/2024 , Expires: 10/27/2025 Start: 09-27-2024 End: 09-27-2024 Patient encounter procedure [facility] Comment on above: bio and rc Start: 09-22-2024 End: 09-22-2024 ambulatory 09/22/2024 10:00 AM EST Results Only [facility] [address] [place] [address] CBC(?TX)* [facility] Comment on above: CBC(?TX)* Start: 09-15-2024 End: 12-15-2024 Cobalamin (Vitamin B12) [Mass/volume] in Serum or Plasma VITAMIN B12 Lab Routine History of anemia Expected: 09/15/2024, Expires: 12/15/2024 [facility] Work Phone: Comment on above: Expected: 09/15/2024 , Expires: 12/15/2024 Start: 09-15-2024 End: 09-15-2024 ambulatory [facility] Comment on above: (SO)CBC(?TX)/CMP(S)/ IRON STUDIES* (SO)CBC(?TX)/CMP(S)/ IRON STUDIES/3 MO OV* Start: 08-22-2024 End: 08-22-2024 ambulatory 08/22/2024 11:00 AM EDT Results Only Marva Thurmanwn [facility] [address] [place] [id number] (SO)CBC(?TX)* [facility] Comment on above: (SO)CBC(?TX)* Start: 08-06-2024 Hepatitis B surface antibody level LDL Cholesterol [facility] Start: 07-29-2024 End: 07-29-2024 Patient encounter procedure 07/29/2024 11:00 AM EDT Office Visit [facility] [place] [address] [place] [id number] Ronaldo Pleitez MD [address] [place] [id number] 6 mo f/u Internal [facility] Comment on above: 6 mo f/u Start: 07-24-2024 End: 10-23-2024 Lipid 1996 panel - Serum or Plasma LIPID PANEL BASIC Lab Routine Mixed hyperlipidemia Expected: 07/24/2024, Expires: 10/23/2024 [facility] Work Phone: Comment on above: Expected: 07/24/2024 , Expires: 10/23/2024 Start: 07-21-2024 End: 07-21-2024 ambulatory 07/21/2024 10:00 AM EDT Results Only Marva [place] [facility] [address] [place] [id number] (SO)CBC(?TX)* [facility] Comment on above: (SO)CBC(?TX)* Start: 07-10-2024 Covid-19 Vaccine ( season) Covid-19 Vaccine ( season) [facility] Start: 07-10-2024 Covid-19 Vaccine ( season) Covid-19 Vaccine ( season) [facility] Start: 07-10-2024 Influenza vaccination Influenza Vacc ine (#1) [facility] Start: 06-17-2024 End: 06-17-2024 Patient encounter procedure 06/17/2024 1:15 PM EDT Office Visit [facility] [address] [place] [address] bio [facility] Comment on above: bio Start: 06-16-2024 End: 06-16-2024 ambulatory [facility] Comment on above: (SO)CBC(?TX)/CMP(S)/ IRON STUDIES* (SO)CBC(?TX)/CMP(S)/ IRON STUDIES/3 MO OV* Start: 05-21-2024 End: 08-20-2024 Thyrotropin [Units/volume] in Serum or Plasma THYROID STIMULATING HORMONE Lab Routine Hypothyroidism, unspecified type Expected: 05/21/2024, Expires: 08/20/2024 [facility] Work Phone: Comment on above: Expected: 05/21/2024 , Expires: 08/20/2024 Start: 03-17-2024 End: 06-16-2024 Ferritin [Mass/volume] in Serum or Plasma FERRITIN Lab Routine 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) Macrocytic anemia Expected: 03/17/2024, Expires: 06/16/2024 [facility] Comment on above: Expected: 03/17/2024 , Expires: 06/16/2024 Start: 03-17-2024 End: 06-16-2024 Iron and Iron binding capacity panel - Serum or Plasma IRON AND TIBC Lab Routine 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) Macrocytic anemia Expected: 03/17/2024, Expires: 06/16/2024 [facility] Work Phone: Comment on above: Expected: 03/17/2024 , Expires: 06/16/2024 Start: 03-17-2024 End: 03-17-2024 ambulatory [facility] Comment on above: (SO)CBC(?TX)/CMP(S)/ IRON STUDIES* (SO)CBC(?TX)/CMP(S)/ IRON STUDIES/3 MO OV* Start: 03-11-2024 Hepatitis B surface antibody level LDL CHOLESTEROL [facility] Start: 02-18-2024 End: 05-19-2024 25-hydroxyvitamin D3 [Mass/volume] in Serum or Plasma VITAMIN D 25 HYDROXY Lab Routine Vitamin D deficiency Expected: 02/18/2024, Expires: 05/19/2024 [facility] Work Phone: Comment on above: Expected: 02/18/2024 , Expires: 05/19/2024 Start: 02-18-2024 End: 05-19-2024 Cobalamin (Vitamin B12) [Mass/volume] in Serum or Plasma VITAMIN B12 BLOOD Lab Routine B12 deficiency Expected: 02/18/2024, Expires: 05/19/2024 [facility] Work Phone: Comment on above: Expected: 02/18/2024 , Expires: 05/19/2024 Start: 02-18-2024 End: 05-19-2024 Thyrotropin [Units/volume] in Serum or Plasma TSH BLD Lab Routine Hypothyroidism, unspecified type Expected: 02/18/2024, Expires: 05/19/2024 [facility] Work Phone: Comment on above: Expected: 02/18/2024 , Expires: 05/19/2024 Start: 12-24-2023 End: 03-24-2024 Ferritin [Mass/volume] in Serum or Plasma FERRITIN BLD Lab Routine 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) Expected: 12/24/2023, Expires: 03/24/2024 [facility] Work Phone: Comment on above: Expected: 12/24/2023 , Expires: 03/24/2024 Start: 12-24-2023 End: 03-24-2024 Iron and Iron binding capacity panel - Serum or Plasma IRON + TIBC Lab Routine 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) Expected: 12/24/2023, Expires: 03/24/2024 [facility] Work Phone: Comment on above: Expected: 12/24/2023 , Expires: 03/24/2024 Start: 11-09-2023 Advance Directive Discussion Advance Directive Discussion [facility] Start: 11-09-2023 Behavioral Health Screening Behavioral Health Screening [facility] Start: 11-09-2023 Depression Assessment Depression Ass essment [facility] Start: 10-07-2023 Hepatitis B surface antibody level LDL CHOLESTEROL [facility] Start: 09-17-2023 Hepatitis B surface antibody level LDL CHOLESTEROL [facility] Start: 08-23-2023 Hepatitis B surface antibody level LDL CHOLESTEROL [facility] Start: 08-08-2023 End: 10-08-2023 25-hydroxyvitamin D3 [Mass/volume] in Serum or Plasma VITAMIN D 25 HYDROXY Lab Routine Vitamin D deficiency Expected: 08/08/2023 (Approximate), Expires: 10/08/2023 [facility] Work Phone: Comment on above: Expected: 08/08/2023 (Approximate), Expires: 10/08/2023 Start: 08-08-2023 End: 10-08-2023 CBC W Auto Differential panel - Blood CBC + DIFF Lab Routine Hypotension due to drugs MDS (myelodysplastic syndrome) (HCC) Expected: 08/08/2023 (Approximate), Expires: 10/08/2023 [facility] Work Phone: Comment on above: Expected: 08/08/2023 (Approximate), Expires: 10/08/2023 Start: 08-08-2023 End: 10-08-2023 Comprehensive metabolic 2000 panel - Serum or Plasma COMP METABOLIC PANEL Lab Routine Essential hypertension, benign PAF (paroxysmal atrial fibrillation) (HCC) Vitamin D deficiency Expected: 08/08/2023 (Approximate), Expires: 10/08/2023 [facility] Work Phone: Comment on above: Expected: 08/08/2023 (Approximate), Expires: 10/08/2023 Start: 08-08-2023 End: 10-08-2023 Iron and Iron binding capacity panel - Serum or Plasma IRON + TIBC Lab Routine MDS (myelodysplastic syndrome) (HCC) Expected: 08/08/2023 (Approximate), Expires: 10/08/2023 [facility] Work Phone: Comment on above: Expected: 08/08/2023 (Approximate), Expires: 10/08/2023 Start: 08-08-2023 End: 10-08-2023 Thyrotropin [Units/volume] in Serum or Plasma TSH BLD Lab Routine Hypothyroidism, unspecified type Expected: 08/08/2023 (Approximate), Expires: 10/08/2023 [facility] Work Phone: Comment on above: Expected: 08/08/2023 (Approximate), Expires: 10/08/2023 Start: 08-08-2023 End: 10-08-2023 Thyroxine (T4) free [Mass/volume] in Serum or Plasma T4 FREE/FREE THYROX Lab Routine Hypothyroidism, unspecified type Expected: 08/08/2023 (Approximate), Expires: 10/08/2023 [facility] Work Phone: Comment on above: Expected: 08/08/2023 (Approximate), Expires: 10/08/2023 Start: 07-13-2023 End: 09-12-2023 25-hydroxyvitamin D3 [Mass/volume] in Serum or Plasma VITAMIN D 25 HYDROXY Lab Routine Vitamin D deficiency Expected: 07/13/2023, Expires: 09/12/2023 [facility] Work Phone: Comment on above: Expected: 07/13/2023 , Expires: 09/12/2023 Start: 07-13-2023 End: 09-12-2023 CBC W Auto Differential panel - Blood CBC + DIFF Lab Routine MDS (myelodysplastic syndrome) ([facility]) Expected: 07/13/2023, Expires: 09/12/2023 [facility] Work Phone: Comment on above: Expected: 07/13/2023 , Expires: 09/12/2023 Start: 07-13-2023 End: 09-12-2023 Comprehensive metabolic 2000 panel - Serum or Plasma COMP METABOLIC PANEL Lab Routine PAF (paroxysmal atrial fibrillation) (HCC) Essential hypertension, benign Chronic heart failure with preserved ejection fraction (HCC) Expected: 07/13/2023, Expires: 09/12/2023 [facility] Work Phone: Comment on above: Expected: 07/13/2023 , Expires: 09/12/2023 Start: 07-13-2023 End: 09-12-2023 Lipid 1996 panel - Serum or Plasma LIPID PANEL BASIC Lab Routine Mixed hyperlipidemia Expected: 07/13/2023, Expires: 09/12/2023 [facility] Work Phone: Comment on above: Expected: 07/13/2023 , Expires: 09/12/2023 Start: 07-13-2023 End: 09-12-2023 Natriuretic peptide.B prohormone N-Terminal [Mass/volume] in Serum or Plasma NT PRO BNP Lab Routine Chronic heart failure with preserved ejection fraction (HCC) Expected: 07/13/2023, Expires: 09/12/2023 [facility] Work Phone: Comment on above: Expected: 07/13/2023 , Expires: 09/12/2023 Start: 07-13-2023 End: 09-12-2023 Thyrotropin [Units/volume] in Serum or Plasma TSH BLD Lab Routine Hypothyroidism, unspecified type Expected: 07/13/2023, Expires: 09/12/2023 [facility] Work Phone: Comment on above: Expected: 07/13/2023 , Expires: 09/12/2023 Start: 07-13-2023 End: 09-12-2023 Thyroxine (T4) free [Mass/volume] in Serum or Plasma T4 FREE/FREE THYROX Lab Routine Hypothyroidism, unspecified type Expected: 07/13/2023, Expires: 09/12/2023 [facility] Work Phone: Comment on above: Expected: 07/13/2023 , Expires: 09/12/2023 Start: 07-10-2023 Covid-19 Vaccine () Covid-19 Vaccine () [facility] Start: 07-10-2023 [facility]: 07-06-[facility]23 Hepatitis B surface antibody level LDL CHOLESTEROL [facility] Start: 07-04-2023 End: 09-03-2023 Hepatitis B virus surface Ab [Presence] in Serum HEP B SURF AB Lab Routine Immunity status testing Expected: 07/04/2023, Expires: 09/03/2023 [facility] Work Phone: Comment on above: Expected: 07/04/2023 , Expires: 09/03/2023 Start: 06-04-2023 End: 08-04-2023 Basic metabolic 2000 panel - Serum or Plasma BASIC METABOLIC PNL Lab Routine Acute on chronic diastolic congestive heart failure (HCC) Essential hypertension, benign Expected: 06/04/2023 (Approximate), Expires: 08/04/2023 [facility] Work Phone: Comment on above: Expected: 06/04/2023 (Approximate), Expires: 08/04/2023 Start: 06-02-2023 End: 08-02-2023 Basic metabolic 2000 panel - Serum or Plasma BASIC METABOLIC PNL Lab Routine Chronic heart failure with preserved ejection fraction (HCC) Essential hypertension, benign Expected: 06/02/2023 (Approximate), Expires: 08/02/2023 [facility] Work Phone: Comment on above: Expected: 06/02/2023 (Approximate), Expires: 08/02/2023 Start: 06-02-2023 End: 08-02-2023 Natriuretic peptide.B prohormone N-Terminal [Mass/volume] in Serum or Plasma NT PRO BNP Lab Routine Chronic heart failure with preserved ejection fraction (HCC) Expected: 06/02/2023 (Approximate), Expires: 08/02/2023 [facility] Work Phone: Comment on above: Expected: 06/02/2023 (Approximate), Expires: 08/02/2023 Start: 05-22-2023 Administration of bl ood product [facility] Start: 05-22-2023 [facility] Start: 05-19-2023 [facility] Start: 05-18-2023 [facility] Start: 05-18-[address] [facility] Start: 05-17-2023 Bacteria identified in Blood by Culture Blood Culture [facility] Start: 05-17-2023 Blood culture [facility] Start: 05-17-2023 Consultation [facility] Start: 05-14-2023 Assessment of risk o f venous thromboembolism [facility] Start: 05-14-2023 Cardiac monitoring [facility] Start: 05-14-2023 Care regimes management [facility] Start: 05-14-2023 Catheterization of vein [facility] Start: 05-14-2023 Inhalation therapy procedure [facility] Start: 05-14-2023 Insertion of cathete r into peripheral vein [facility] Start: 05-14-2023 Measuring intake and output [facility] Start: 05-14-2023 Notification of physician [facility] Start: 05-14-2023 Oxygen therapy [facility] Start: 05-14-2023 Providing care accor ding to standard [facility] Start: 05-14-2023 Provision of activit y privileges [facility] Start: 05-14-2023 Referral to occupati onal therapist [facility] Start: 05-14-2023 Referral to service [facility] Start: 05-14-2023 [facility] Start: 05-14-2023 Verification routine [facility] Start: 05-14-2023 Admission procedure [facility] Start: 05-14-2023 Bacteria identified in Blood by Culture Blood Culture [facility] Start: 05-14-2023 End: 05-14-2023 [facility] Start: 05-14-2023 End: 05-14-2023 Blood culture [facility] Start: 04-20-2023 End: 05-19-2024 CT BRAIN WO IVCON CT BRAIN IVCON Radiology STAT Unstable gait Postural dizziness Confusion and disorientation Diplopia Expected: 04/20/2023, Expires: 05/19/2024 [facility] Work Phone: Comment on above: Expected: 04/20/2023 , Expires: 05/19/2024 Start: 04-10-2023 End: 06-10-2023 25-hydroxyvitamin D3 [Mass/volume] in Serum or Plasma VITAMIN D 25 HYDROXY Lab Routine Vitamin D deficiency Expected: 04/10/2023 (Approximate), Expires: 06/10/2023 [facility] Work Phone: Comment on above: Expected: 04/10/2023 (Approximate), Expires: 06/10/2023 Start: 04-10-2023 End: 06-10-2023 Comprehensive metabolic 2000 panel - Serum or Plasma COMP METABOLIC PANEL Lab Routine Chronic heart failure with preserved ejection fraction (HCC) PAF (paroxysmal atrial fibrillation) (HCC) Essential hypertension, benign Hx of four vessel coronary artery bypass graft Mixed hyperlipidemia Expected: 04/10/2023 (Approximate), Expires: 06/10/2023 [facility] Work Phone: Comment on above: Expected: 04/10/2023 (Approximate), Expires: 06/10/2023 Start: 04-10-2023 End: 06-10-2023 Iron and Iron binding capacity panel - Serum or Plasma IRON + TIBC Lab Routine Iron deficiency Expected: 04/10/2023 (Approximate), Expires: 06/10/2023 [facility] Work Phone: Comment on above: Expected: 04/10/2023 (Approximate), Expires: 06/10/2023 Start: 04-10-2023 End: 06-10-2023 Lipid 1996 panel - Serum or Plasma LIPID PANEL BASIC Lab Routine Mixed hyperlipidemia Expected: 04/10/2023 (Approximate), Expires: 06/10/2023 [facility] Work Phone: Comment on above: Expected: 04/10/2023 (Approximate), Expires: 06/10/2023 Start: 04-10-2023 End: 06-10-2023 Natriuretic peptide.B prohormone N-Terminal [Mass/volume] in Serum or Plasma NT PRO BNP Lab Routine Chronic heart failure with preserved ejection fraction (HCC) Expected: 04/10/2023 (Approximate), Expires: 06/10/2023 [facility] Work Phone: Comment on above: Expected: 04/10/2023 (Approximate), Expires: 06/10/2023 Start: 04-10-2023 End: 06-10-2023 Thyrotropin [Units/volume] in Serum or Plasma TSH BLD Lab Routine Hypothyroidism, unspecified type Expected: 04/10/2023 (Approximate), Expires: 06/10/2023 [facility] Work Phone: Comment on above: Expected: 04/10/2023 (Approximate), Expires: 06/10/2023 Start: 04-10-2023 End: 06-10-2023 Thyroxine (T4) free [Mass/volume] in Serum or Plasma T4 FREE/FREE THYROX Lab Routine Hypothyroidism, unspecified type Expected: 04/10/2023 (Approximate), Expires: 06/10/2023 [facility] Work Phone: Comment on above: Expected: 04/10/2023 (Approximate), Expires: 06/10/2023 Start: 04-09-2023 End: 06-09-2023 Basic metabolic 2000 panel - Serum or Plasma BASIC METABOLIC PNL Lab Routine Chronic heart failure with preserved ejection fraction (HCC) Expected: 04/09/2023 (Approximate), Expires: 06/09/2023 [facility] Work Phone: Comment on above: Expected: 04/09/2023 (Approximate), Expires: 06/09/2023 Start: 04-09-2023 End: 06-09-2023 Natriuretic peptide.B prohormone N-Terminal [Mass/volume] in Serum or Plasma NT PRO BNP Lab Routine Chronic heart failure with preserved ejection fraction (HCC) Expected: 04/09/2023 (Approximate), Expires: 06/09/2023 [facility] Work Phone: Comment on above: Expected: 04/09/2023 (Approximate), Expires: 06/09/2023 Start: 03-12-2023 Hepatitis B surface antibody level LDL CHOLESTEROL [facility] Start: 11-12-2022 Hepatitis B surface antibody level LDL CHOLESTEROL [facility] Start: 11-09-2022 ADVANCE DIRECTIVE DISCUSSION ADVANCE DIRECTIVE DISCUSSION [facility] Start: 11-09-2022 DEPRESSION ASSESSMENT DEPRESSION ASS ESSMENT [facility] Start: 11-05-2022 End: 01-05-2023 CBC W Auto Differential panel - Blood CBC + DIFF Lab Routine MDS (myelodysplastic syndrome) (HCC) Expected: 11/05/2022, Expires: 01/05/2023 [facility] Work Phone: Comment on above: Expected: 11/05/2022 , Expires: 01/05/2023 Start: 11-05-2022 End: 01-05-2023 Erythropoietin (EPO) [Units/volume] in Serum or Plasma ERYTHROPOIETIN/EPO Lab Routine MDS (myelodysplastic syndrome) (HCC) Expected: 11/05/2022, Expires: 01/05/2023 [facility] Work Phone: Comment on above: Expected: 11/05/2022 , Expires: 01/05/2023 Start: 10-09-2022 End: 12-09-2022 Basic metabolic 2000 panel - Serum or Plasma BASIC METABOLIC PNL Lab Routine Complete heart block (HCC) Paroxysmal atrial fibrillation (HCC) Expected: 10/09/2022 (Approximate), Expires: 12/09/2022 [facility] Work Phone: Comment on above: Expected: 10/09/2022 (Approximate), Expires: 12/09/2022 Start: 10-09-2022 End: 12-09-2022 CBC W Auto Differential panel - Blood [facility] Work Phone: Comment on above: Expected: 10/09/2022 (Approximate), Expires: 12/09/2022 Expected: 10/09/2022 , Expires: 12/09/2022 Start: 10-09-2022 End: 12-09-2022 COPPER BLOOD COPPER BLOOD Lab Routine Macrocytic anemia Expected: 10/09/2022, Expires: 12/09/2022 [facility] Work Phone: Comment on above: Expected: 10/09/2022 , Expires: 12/09/2022 Start: 10-09-2022 End: 12-09-2022 Erythropoietin (EPO) [Units/volume] in Serum or Plasma ERYTHROPOIETIN/EPO Lab Routine Macrocytic anemia Expected: 10/09/2022, Expires: 12/09/2022 [facility] Work Phone: Comment on above: Expected: 10/09/2022 , Expires: 12/09/2022 Start: 10-09-2022 End: 12-09-2022 Iron and Iron binding capacity panel - Serum or Plasma IRON + TIBC Lab Routine Anemia, unspecified type Iron deficiency Expected: 10/09/2022 (Approximate), Expires: 12/09/2022 [facility] Work Phone: Comment on above: Expected: 10/09/2022 (Approximate), Expires: 12/09/2022 Start: 09-25-2022 End: 11-25-2022 CBC W Auto Differential panel - Blood CBC + DIFF Lab Routine Anemia, unspecified type Iron deficiency Expected: 09/25/2022 (Approximate), Expires: 11/25/2022 [facility] Work Phone: Comment on above: Expected: 09/25/2022 (Approximate), Expires: 11/25/2022 Start: 09-25-2022 End: 11-25-2022 Iron and Iron binding capacity panel - Serum or Plasma IRON + TIBC Lab Routine Anemia, unspecified type Iron deficiency Expected: 09/25/2022 (Approximate), Expires: 11/25/2022 [facility] Work Phone: Comment on above: Expected: 09/25/2022 (Approximate), Expires: 11/25/2022 Start: 09-18-2022 COVID-19 VACCINE (6 - Pfizer risk series) COVID-19 VACCINE (6 - Pfizer risk series) [facility] Start: 09-11-2022 End: 11-11-2022 25-hydroxyvitamin D3 [Mass/volume] in Serum or Plasma VITAMIN D 25 HYDROXY Lab Routine Vitamin D deficiency Expected: 09/11/2022 (Approximate), Expires: 11/11/2022 [facility] Work Phone: Comment on above: Expected: 09/11/2022 (Approximate), Expires: 11/11/2022 Start: 09-11-2022 End: 11-11-2022 CBC W Auto Differential panel - Blood CBC + DIFF Lab Routine Paroxysmal atrial fibrillation (HCC) Anemia, unspecified type 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 Expected: 09/11/2022 (Approximate), Expires: 11/11/2022 [facility] Work Phone: Comment on above: Expected: 09/11/2022 (Approximate), Expires: 11/11/2022 Start: 09-11-2022 End: 11-11-2022 Comprehensive metabolic 2000 panel - Serum or Plasma COMP METABOLIC PANEL Lab Routine Paroxysmal atrial fibrillation (HCC) Essential hypertension, benign Hx of four vessel coronary artery bypass graft Mixed hyperlipidemia Expected: 09/11/2022 (Approximate), Expires: 11/11/2022 [facility] Work Phone: Comment on above: Expected: 09/11/2022 (Approximate), Expires: 11/11/2022 Start: 09-11-2022 End: 11-11-2022 Lipid 1996 panel - Serum or Plasma LIPID PANEL BASIC Lab Routine Mixed hyperlipidemia Expected: 09/11/2022 (Approximate), Expires: 11/11/2022 [facility] Work Phone: Comment on above: Expected: 09/11/2022 (Approximate), Expires: 11/11/2022 Start: 09-11-2022 End: 11-11-2022 Natriuretic peptide.B prohormone N-Terminal [Mass/volume] in Serum or Plasma NT PRO BNP Lab Routine Hx of four vessel coronary artery bypass graft Expected: 09/11/2022 (Approximate), Expires: 11/11/2022 [facility] Work Phone: Comment on above: Expected: 09/11/2022 (Approximate), Expires: 11/11/2022 Start: 09-11-2022 End: 11-11-2022 Thyrotropin [Units/volume] in Serum or Plasma TSH BLD Lab Routine Hypothyroidism, unspecified type Expected: 09/11/2022 (Approximate), Expires: 11/11/2022 [facility] Work Phone: Comment on above: Expected: 09/11/2022 (Approximate), Expires: 11/11/2022 Start: 09-11-2022 End: 11-11-2022 Thyroxine (T4) free [Mass/volume] in Serum or Plasma T4 FREE/FREE THYROX Lab Routine Hypothyroidism, unspecified type Expected: 09/11/2022 (Approximate), Expires: 11/11/2022 [facility] Work Phone: Comment on above: Expected: 09/11/2022 (Approximate), Expires: 11/11/2022 Start: 07-10-2022 Influenza vaccination INFLUENZA (#1) [facility] Start: 05-19-2022 End: 07-19-2022 CBC W Auto Differential panel - Blood CBC + DIFF Lab Routine Anemia, unspecified type Iron deficiency Expected: 05/19/2022 (Approximate), Expires: 07/19/2022 [facility] Work Phone: Comment on above: Expected: 05/19/2022 (Approximate), Expires: 07/19/2022 Start: 05-19-2022 End: 07-19-2022 IRON + TIBC IRON + TIBC Lab Routine Anemia, unspecified type Iron deficiency Expected: 05/19/2022, Expires: 07/19/2022 [facility] Work Phone: Comment on above: Expected: 05/19/2022 , Expires: 07/19/2022 Start: 04-23-2022 End: 06-23-2022 CBC W Auto Differential panel - Blood CBC + DIFF Lab Routine Anemia, unspecified type Expected: 04/23/2022, Expires: 06/23/2022 [facility] Work Phone: Comment on above: Expected: 04/23/2022 , Expires: 06/23/2022 Start: 04-23-2022 End: 06-23-2022 FERRITIN BLD FERRITIN BLD Lab Routine Anemia, unspecified type Expected: 04/23/2022, Expires: 06/23/2022 [facility] Work Phone: Comment on above: Expected: 04/23/2022 , Expires: 06/23/2022 Start: 04-23-2022 End: 06-23-2022 IRON + TIBC IRON + TIBC Lab Routine Anemia, unspecified type Expected: 04/23/2022, Expires: 06/23/2022 [facility] Work Phone: Comment on above: Expected: 04/23/2022 , Expires: 06/23/2022 Start: 04-01-2022 End: 06-01-2022 FERRITIN BLD FERRITIN BLD Lab Routine Anemia, unspecified type Iron deficiency Expected: 04/01/2022 (Approximate), Expires: 06/01/2022 [facility] Work Phone: Comment on above: Expected: 04/01/2022 (Approximate), Expires: 06/01/2022 Start: 04-01-2022 End: 06-01-2022 IRON + TIBC IRON + TIBC Lab Routine Anemia, unspecified type Iron deficiency Expected: 04/01/2022 (Approximate), Expires: 06/01/2022 [facility] Work Phone: Comment on above: Expected: 04/01/2022 (Approximate), Expires: 06/01/2022 Start: 04-01-2022 End: 06-01-2022 VITAMIN B12 BLOOD VITAMIN B12 BLOOD Lab Routine Macrocytosis Expected: 04/01/2022 (Approximate), Expires: 06/01/2022 [facility] Work Phone: Comment on above: Expected: 04/01/2022 (Approximate), Expires: 06/01/2022 Start: 12-21-2021 COVID-19 VACCINE (4 - Booster for Pfizer series) COVID-19 VACCINE (4 - Booster for Pfizer series) [facility] Start: 11-09-2021 ADVANCE DIRECTIVE DISCUSSION ADVANCE DIRECTIVE DISCUSSION [facility] Start: 11-09-2021 DEPRESSION ASSESSMENT DEPRESSION ASS ESSMENT [facility] Start: 09-28-2020 End: 09-28-2020 Appointment Appointment [facility] Work Phone: Start: 09-28-2020 End: 09-28-2020 Radex ankle complete minimum 3 views XR ANKLE 3 VWS-RT [facility] Work Phone: Start: 2010 RSV Vaccine (1 - 1-d ose 75+ series) RSV Vaccine (1 - 1-dose 75+ series) [facility] Start: 1995 RSV Vaccine (1 - 1-d ose 60+ series) RSV Vaccine (1 - 1-dose 60+ series) [facility] Start: 1953 Anxiety Screening Anxiety Screening [facility] Start: 1953 Depression Screening Depression Scre ening [facility] Bilirubin measuremen t, urine [facility] BONE MARROW ANALYSIS BONE MARROW ANALYSIS Lab Routine Macrocytic anemia 10/24/2022 12:31 PM EST [facility] Work Phone: BONE MARROW CHROMOSO ME ANAL BONE MARROW CHROMOSOME ANAL Lab Routine Macrocytic anemia Ordered: 10/24/2022 [facility] Work Phone: Comment on above: Ordered: 10/24/2022 CBC W Auto Different ial panel - Blood CBC + DIFF Lab Routine Macrocytic anemia Ordered: 10/24/2022 [facility] Work Phone: Comment on above: Ordered: 10/24/2022 End: 12-12-2023 CBC W Auto Differential panel - Blood CBC + DIFF Lab STAT 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) 4 Occurrences starting 12/12/2022 until 12/12/2023, 1 completed [facility] Work Phone: Comment on above: 4 Occurrences starti ng 12/12/2022 until 12/12/2023, 1 completed End: 03-08-2024 CBC W Auto Differential panel - Blood CBC + DIFF Lab STAT 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) Every 3 weeks for 6 Occurrences starting 03/09/2023 until 03/08/2024, 1 completed [facility] Work Phone: Comment on above: Every 3 weeks for 6 Occurrences starting 03/09/2023 until 03/08/2024, 1 completed CHROM ANAL W RFX MDS FISH CHROM ANAL W RFX MDS FISH Lab Routine Macrocytic anemia 10/24/2022 12:31 PM EST [facility] Work Phone: End: 12-12-2023 Comprehensive metabolic 2000 panel - Serum or Plasma COMP METABOLIC PANEL Lab STAT 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) 4 Occurrences starting 12/12/2022 until 12/12/2023, 1 completed [facility] Work Phone: Comment on above: 4 Occurrences starti ng 12/12/2022 until 12/12/2023, 1 completed End: 03-07-2024 Comprehensive metabolic 2000 panel - Serum or Plasma COMP METABOLIC PANEL Lab STAT 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) Every 3 weeks for 6 Occurrences starting 03/09/2023 until 03/07/2024, 1 completed [facility] Work Phone: Comment on above: Every 3 weeks for 6 Occurrences starting 03/09/2023 until 03/07/2024, 1 completed Diagnostic bone bonnie ow biopsies IMAGING GUIDED BIOPSY BONE MARROW (HEMATOLOGY) Radiology Routine Macrocytic anemia Ordered: 10/09/2022 [facility] Work Phone: Comment on above: Ordered: 10/09/2022 Digoxin [Mass/volume ] in Serum or Plasma [facility] DNA EXTRACTION BONE MARROW (BUFFY COAT) DNA EXTRACTION BONE MARROW (BUFFY COAT) Lab Routine Macrocytic anemia 10/24/2022 12:31 PM [facility] Work Phone: ECG COMPLETE ECG COMPLETE ECG Routine Benign hypertension 06/10/2022 11:28 AM T [facility] Work Phone: ECG COMPLETE ECG COMPLETE ECG Routine Chronic atrial fibrillation (HCC) 04/07/2025 11:13 AM [facility] Work Phone: FLOW CYTOMETRY BONE MARROW HOLD (BMHOLD) FLOW CYTOMETRY BONE MARROW HOLD (BMHOLD) Lab Routine Macrocytic anemia 10/24/2022 12:31 PM [facility] Work Phone: FLT3 ITD HN BONE MARROW FLT3 ITD HN BONE MARROW Lab Routine Macrocytic anemia 10/24/2022 12:31 PM [facility] Work Phone: Hemoglobin [Presence ] in Urine [facility] Hemoglobin.gastroint ezra sainzlower [Presence] in Stool by Immunoassay FECAL OCCULT BLOOD TEST Lab Routine Anemia, unspecified type Iron deficiency Macrocytosis Ordered: 03/18/2022 [facility] Work Phone: Comment on above: Ordered: 03/18/2022 Hepb vaccine adult 3 dose schedule for im use HEP B VACCINE, 3-DOSE, AGE 20+ YR (ENGERIX-B, RECOMBIVAX HB) Immunization/Injection Routine Need for hepatitis B booster vaccination Ordered: 05/06/2023 [facility] Work Phone: Comment on above: Ordered: 05/06/2023 Lactic acid measurement [facility] Measurement of keton es in urine using dipstick [facility] Microscopic urinalysis [facility] End: 06-07-2023 Mri spinal canal lumbar w/o contrast material MRI LUMBAR SPINE WO IVCON Radiology Routine Spinal stenosis of lumbar region with neurogenic claudication 1 Occurrences starting 05/08/2022 until 06/07/2023 [facility] Work Phone: Comment on above: 1 Occurrences starti ng 05/08/2022 until 06/07/2023 Mri spinal canal lum bar w/o contrast material MRI LUMBAR SPINE WO IVCON Radiology Routine Spinal stenosis of lumbar region with neurogenic claudication 05/26/2022 3:45 PM EDT [facility] Work Phone: MYELOID NGS PANEL LUIS NE MARROW MYELOID NGS PANEL BONE MARROW Lab Routine Macrocytic anemia 10/24/2022 12:31 PM EST [facility] Work Phone: MYELOID NGS PANEL LUIS NE MARROW MYELOID NGS PANEL BONE MARROW Lab Routine Macrocytic anemia 10/24/2022 12:31 PM EST [facility] Work Phone: Patient referral [facility] Work Phone: pH of Urine [facility] PT PLAN OF CARE CERTIFICATION PT PLAN OF CARE CERTIFICATION Procedures Routine 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 Ordered: 03/21/2022 [facility] Work Phone: Comment on above: Ordered: 03/21/2022 Radex spine lumbosac ral minimum 4 views XR LUMBAR MOTION 4V AP/LAT/ FLEX/EXT Radiology Routine Spinal stenosis of lumbar region with neurogenic claudication 03/12/2022 8:43 AM EDT [facility] Work Phone: Specific gravity of Urine [facility] Urinalysis, blood, qualitative [facility] Urine dipstick for glucose [facility] Urine dipstick for leukocyte esterase [facility] Urine dipstick for nitrite [facility] Urine dipstick for protein [facility] Urine examination [facility] Urine microscopy: epithelial cells [facility] Urine Microscopy: wh ite cells [facility] Urobilinogen [Presen ce] in Urine [facility] End: 05-05-2024 US ARM VEIN DVT UNL VAS LAB US ARM VEIN DVT UNL VAS LAB Vascular Lab STAT 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) Arm swelling 1 Occurrences starting 05/05/2023 until 05/05/2024 [facility] Work Phone: Comment on above: 1 Occurrences starti ng 05/05/2023 until 05/05/2024 End: 04-23-2024 US DVT LOWER BILATERAL US DVT LOWER BILATERAL Radiology STAT Traumatic ecchymosis of foot, right, initial encounter Bilateral calf pain Venous stasis of both lower extremities 1 Occurrences starting 03/25/2023 until 04/23/2024 [facility] Work Phone: Comment on above: 1 Occurrences starti ng 03/25/2023 until 04/23/2024 End: 06-12-2024 US DVT LOWER RIGHT US DVT LOWER RIGHT Radiology STAT Right leg pain 1 Occurrences starting 05/14/2023 until 06/12/2024 [facility] Work Phone: Comment on above: 1 Occurrences starti ng 05/14/2023 until 06/12/2024 End: 04-26-2026 US Lower extremity vein - bilateral US DVT LOWER BILATERAL Radiology STAT Lymphedema of right lower extremity Lymphedema of both lower extremities 1 Occurrences starting 03/27/2025 until 04/26/2026 [facility] Work Phone: Comment on above: 1 Occurrences starti ng 03/27/2025 until 04/26/2026 End: 02-20-2025 XR Chest PA and Lateral XR CHEST 2V FRONTAL/LAT Radiology Routine Chronic heart failure with preserved ejection fraction (HCC) 1 Occurrences starting 01/22/2024 until 02/20/2025 [facility] Work Phone: Comment on above: 1 Occurrences starti ng 01/22/2024 until 02/20/2025 XR Chest PA and Lateral XR CHEST 2V FRONTAL/LAT Radiology Routine Chronic heart failure with preserved ejection fraction (HCC) 01/22/2024 12:19 PM EDT [facility] Work Phone: End: 01-21-2025 XR Elbow - right AP and Lateral and oblique XR ELBOW SPECIAL VIEWS AP/LAT/OTHER RIGHT Radiology Routine Right elbow pain Monoarthritis of elbow, right 1 Occurrences starting 12/23/2023 until 01/21/2025 [facility] Work Phone: Comment on above: 1 Occurrences starti ng 12/23/2023 until 01/21/2025 XR Elbow - right AP and Lateral and oblique XR ELBOW SPECIAL VIEWS AP/LAT/OTHER RIGHT Radiology Routine Right elbow pain Monoarthritis of elbow, right 12/23/2023 12:39 PM EST [facility] Work Phone: End: 06-28-2023 XR KNEE LIMITED 2V AP/LAT RIGHT XR KNEE LIMITED 2V AP/LAT RIGHT Radiology Routine Pes anserine bursitis Acute pain of right knee 1 Occurrences starting 05/29/2022 until 06/28/2023 [facility] Work Phone: Comment on above: 1 Occurrences starti ng 05/29/2022 until 06/28/2023 [facility] Immunizations Immunization Date Immunization Notes Care Provider Mandy olvera 08-29-2024 COVID-19 vaccine, ag e 12+ yr (PFIZER-BIONTECH COMIRNATY) Arabella Moreno MANAGER DAIRY.OFFICE MACHINES SALES REPRESENTATIVE Work Phone: [facility] 08-22-2024 Seasonal trivalent influenza vaccine, adjuvanted, preservative free Arabellajudie Moreno MANAGER DAIRY.OFFICE MACHINES SALES REPRESENTATIVE Work Phone: [facility] 08-22-2024 influenza virus vaccine, unspecified formulation Injection Wstr Work Phone: [facility] 09-22-2023 COVID-19 vaccine, ag e 12+ yr (PFIZER-BIONTECH COMIRNATY) Arabella Moreno MANAGER DAIRY.OFFICE MACHINES SALES REPRESENTATIVE Work Phone: [facility] 07-24-2023 influenza (HD-IIV4) vaccine, age 65+ yr, high dose, quadrivalent, PF (FLUZONE HIGH-DOSE) Arabellajudie Bates MANAGER DAIRY.OFFICE MACHINES SALES REPRESENTATIVE Work Phone: [facility] 07-24-2023 influenza virus vaccine, unspecified formulation Ginna Em RN Work Phone: [facility] 07-24-2022 COVID-19 vaccine, ag e 12+ yr, bivalent booster (PFIZER-BIONTECH) Israel Pruitt DO Work Phone: [facility] 07-24-2022 influenza, high-dose , quadrivalent vaccine (FLUZONE HIGH DOSE QUADRIVALENT) Israel Pruitt DO Work Phone: [facility] 07-24-2022 influenza virus vaccine, unspecified formulation Iram Johnson MANAGER DAIRY.OFFICE MACHINES SALES REPRESENTATIVE Work Phone: [facility] 05-19-2022 COVID-19 original vaccine, age 12+ yr, monovalent (PFIZER-BIONTECH - GEE TOP) Israel Pettyjoanrenata DO Work Phone: [facility] 05-19-2022 COVID-19 vaccine, ag e 12+ yr (PFIZER-BIONTECH - PURPLE TOP) Israel Pruitt DO Work Phone: [facility] Work Phone: 08-20-2021 COVID-19 vaccine, ag e 12+ yr (PFIZER-BIONTECH - PURPLE TOP) Iram Johnson MANAGER DAIRY.OFFICE MACHINES SALES REPRESENTATIVE Work Phone: [facility] 08-09-2021 influenza, high-dose , quadrivalent vaccine (FLUZONE HIGH DOSE QUADRIVALENT) Iram Johnson MANAGER DAIRY.OFFICE MACHINES SALES REPRESENTATIVE Work Phone: [facility] 12-25-2020 COVID-19 vaccine, ag e 12+ yr (PFIZER-BIONTECH - PURPLE TOP) Iram Johnson MANAGER DAIRY.OFFICE MACHINES SALES REPRESENTATIVE Work Phone: [facility] 12-04-2020 COVID-19 vaccine, ag e 12+ yr (PFIZER-BIONTECH - PURPLE TOP) Iram Johnson MANAGER DAIRY.OFFICE MACHINES SALES REPRESENTATIVE Work Phone: [facility] 10-10-2020 influenza, high dose seasonal, preservative-free Iram Johnson MANAGER DAIRY.OFFICE MACHINES SALES REPRESENTATIVE Work Phone: [facility] Work Phone: 07-05-2020 zoster vaccine recombinant Iram Johnson MANAGER DAIRY.OFFICE MACHINES SALES REPRESENTATIVE Work Phone: [facility] 05-04-2020 zoster vaccine recombinant Iram Johnson MANAGER DAIRY.OFFICE MACHINES SALES REPRESENTATIVE Work Phone: [facility] 08-24-2019 influenza, high dose seasonal, preservative-free Iram Johnson MANAGER DAIRY.OFFICE MACHINES SALES REPRESENTATIVE Work Phone: [facility] Work Phone: 09-16-2018 influenza, high dose seasonal, preservative-free Iram Johnson MANAGER DAIRY.OFFICE MACHINES SALES REPRESENTATIVE Work Phone: [facility] 08-25-2017 influenza, high dose seasonal, preservative-free Iram Johnson MANAGER DAIRY.OFFICE MACHINES SALES REPRESENTATIVE Work Phone: [facility] 08-11-2016 influenza, high dose seasonal, preservative-free Iram Johnson MANAGER DAIRY.OFFICE MACHINES SALES REPRESENTATIVE Work Phone: [facility] 10-03-2015 influenza, seasonal, injectable Iram Johnson MANAGER DAIRY.OFFICE MACHINES SALES REPRESENTATIVE Work Phone: [facility] 07-25-2015 tetanus toxoid, redu jeff diphtheria toxoid, and acellular pertussis vaccine, adsorbed Iram Johnson MANAGER DAIRY.OFFICE MACHINES SALES REPRESENTATIVE Work Phone: [facility] 01-02-2015 pneumococcal conjuga te vaccine, 13 valent Iram Johnson MANAGER DAIRY.OFFICE MACHINES SALES REPRESENTATIVE Work Phone: [facility] 09-07-2014 influenza, seasonal, injectable Iram Johnson MANAGER DAIRY.OFFICE MACHINES SALES REPRESENTATIVE Work Phone: [facility] 08-17-2012 influenza virus vaccine, unspecified formulation Iram Johnson MANAGER DAIRY.OFFICE MACHINES SALES REPRESENTATIVE Work Phone: [facility] 08-19-2011 influenza virus vaccine, unspecified formulation Iram Johnson MANAGER DAIRY.OFFICE MACHINES SALES REPRESENTATIVE Work Phone: [facility] 08-13-2010 influenza virus vaccine, unspecified formulation Iram Johnson MANAGER DAIRY.OFFICE MACHINES SALES REPRESENTATIVE Work Phone: [facility] Work Phone: 08-01-2009 influenza virus vaccine, unspecified formulation Iram Johnson MANAGER DAIRY.OFFICE MACHINES SALES REPRESENTATIVE Work Phone: [facility] 11-20-2008 zoster vaccine, live Iram ascencio MANAGER DAIRY.OFFICE MACHINES SALES REPRESENTATIVE Work Phone: [facility] Work Phone: 10-03-2008 influenza virus vaccine, whole virus Iram Johnson MANAGER DAIRY.OFFICE MACHINES SALES REPRESENTATIVE Work Phone: [facility] 09-21-2007 influenza virus vaccine, whole virus Iram Johnson MANAGER DAIRY.OFFICE MACHINES SALES REPRESENTATIVE Work Phone: [facility] 02-07-2005 tetanus and diphther ia toxoids, adsorbed, preservative free, for adult use (2 Lf of tetanus toxoid and 2 Lf of diphtheria toxoid) Iram Johnson MANAGER DAIRY.OFFICE MACHINES SALES REPRESENTATIVE Work Phone: [facility] 09-08-2001 pneumococcal polysaccharide vaccine, 23 valent Iram Johnson MANAGER DAIRY.OFFICE MACHINES SALES REPRESENTATIVE Work Phone: [facility] 11-27-1999 hepatitis A vaccine, unspecified formulation Iram Johnson MANAGER DAIRY.OFFICE MACHINES SALES REPRESENTATIVE Work Phone: [facility] 11-27-1999 hepatitis B vaccine, adult dosage Iram Johnson MANAGER DAIRY.OFFICE MACHINES SALES REPRESENTATIVE Work Phone: [facility] 05-17-1999 hepatitis B vaccine, adult dosage Iram Johnson MANAGER DAIRY.OFFICE MACHINES SALES REPRESENTATIVE Work Phone: [facility] 04-10-1999 hepatitis A vaccine, unspecified formulation Iram Johnson MANAGER DAIRY.OFFICE MACHINES SALES REPRESENTATIVE Work Phone: [facility] 04-10-1999 hepatitis B vaccine, adult dosage Iram Johnson MANAGER DAIRY.OFFICE MACHINES SALES REPRESENTATIVE Work Phone: [facility] Payers Date Payer Category Payer Self-pay 2023 [facility]Managed Care) [facility] [id number] 2023 Unknown [facility] [employer] MEDICARE ADVANTAGE O [id number] 2023-Present [phone] [address] [place] [address] O [id number] 2023 Medicare [id number] 2020 Medicare UHC AARP MEDICAR E [facility] AARP MEDICARE HMO [id number] 2020-Present [phone] [address] [address] [place] [address] O [id number] 2000 Medicare [id number] 2000 Medicare [id number] Medicare MEDICARE PART A B [id number] Unknown [employer] [id number] Unknown [id number] Unknown [id number] Unknown [id number] Social History Date Type Detail Facility Start: 05-14-2023 End: 05-14-2023 Assertion Unknown if ever smoked [facility] Work Phone: Start: 08-19-2011 End: 09-27-2024 Tobacco smoking status NHIS Ex-smoker [facility] End: 08-11-1989 History of tobacco use Current smoker [facility] Start: 12-10-2021 End: 06-05-2025 Alcohol intake Current drinker of alcohol (finding) [facility] Start: 12-10-2021 End: 04-14-2023 Alcohol intake [facility] Start: 07-18-2020 End: 12-10-2022 History SDOH Alcohol Frequency 5 [facility] Start: 07-18-2020 End: 12-10-2022 History SDOH Alcohol Std Drinks 1 [facility] Start: 08-04-2012 History SDOH Alcohol Comment 1-2 beers per week [facility] Start: 07-18-2020 End: 12-10-2022 History SDOH Social Connections Get Together 2 [facility] Start: 07-18-2020 End: 12-10-2022 History SDOH Social Connections Hindu 3 [facility] Start: 07-18-2020 End: 12-10-2022 History SDOH Physical Activity MPS 4 [facility] Start: 11-07-2019 Education 18 [facility] Start: 1935 Sex Assigned At Male [facility] Start: 02-16-2022 End: 10-06-2022 Exposure to SARS-CoV-2 (event) Not sure [facility] End: 08-11-1989 History of tobacco use Cigarette Smoker [facility] Start: 08-19-2011 End: 09-27-2024 Tobacco use and exposure Smokeless tobacco non-user [facility] Start: 07-17-2022 Tobacco Comment quit 18-19 years ago [facility] Start: 12-10-2022 History SDOH Social Connections Living 8 [facility] Start: 03-27-2023 None [facility] Start: 03-27-2023 Non-smoker [facility] Start: 12-09-2022 End: 04-14-2023 Social connection and isolation panel [facility] Do you belong to any clubs or organizations such as caodaism groups, unions, fraternal or athletic groups, or school groups? Yes [facility] Are you now , , , , never or living with a partner? Living with partner [facility] How often to you hav e a drink containing alcohol? 2-4 times a month [facility] How many standard dr inks containing alcohol do you have on a typical day? 1 or 2 [facility] How often do you hav e 6 or more drinks on 1 occasion? Never [facility] How hard is it for y ou to pay for the very basics like food, housing, medical care, and heating Not hard at all [facility] Do you feel stress - tense, restless, nervous, or anxious, or unable to sleep at night because your mind is troubled all the time - these days [OSQ] To some extent [facility] (I/We) worried colleen er (my/our) food would run out before (I/we) got money to buy more. Never true [facility] In the past 12 month s, was there a time when you were not able to pay the mortgage or rent on time? No [facility] Start: 03-12-2019 Gender identity Identifies as male gender (finding) [facility] Start: 03-12-2019 Sexual orientation Heterosexual (finding) [facility] Start: 06-16-2023 End: 12-23-2023 Alcohol intake Ex-drinker (finding) [facility] Start: 06-12-2023 Alcohol Comment rare glass of wine. [facility] Start: 06-16-2024 Alcohol Comment occ [facility] History of tobacco use Passive smoker [facility] How often to you hav e a drink containing alcohol? Monthly or less [facility] Medical Equipment Procedure Code Equipment Code Equipment Origin al Text Equipment Identifier Dates Manny Bn Smpx P Speedset Fd Fst - [id number] Start: 12-12-2014 Standard Humeral Head [id number] Start: 12-12-2014 Comp Paras 48mm G b Adv Anchr - [id number] Start: 12-12-2014 Stem Hum 14mm Gl ob Ap Shldr - [id number] Start: 12-12-2014 Assemb Tapr Glob Ap 135d Shldr - [id number] Start: 12-12-2014 Bobbyri Guy 8 Adriana [id number] Start: 09-17-2022 Adair Pena 53 [id number] Start: 09-17-2022 Comment on above: Description: Atrial lead Dual Pacer Biotronik- 2 [id number] Start: 09-17-2022 Comment on above: Description: 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 Initial Dual Pacer Implant. Catheter Powerpo rt Chronoflex 6fr 60cm Central Venous Without Suture Plug - [id number] Start: 12-05-2022 Ra Lead Biotronik- 2 [id number] Start: 09-17-2022 Rv Lead Biotronik- 2 [id number] Start: 09-17-2022 Adair Brewer [id number] Start: 09-17-2022 Goals Date Patient Goal Desired Activity /State Personal health goal Comment on above: Formatting of this n ote might be different from the original. Increase exercise by getting on a scheduled exercise plan. Reevaluate in 6 months and ongoing Personal health goal Comment on above: Formatting of this n ote might be different from the original. Patient has the following Congestive Heart Failure Goals: Two PCP Visits annually CHF Education given and reviewed with patient --sent on 04/14/23 CHF MARCELO education provided - Heart Failure [facility] 2 Patient will meet these goals by 05/02 (describe interventions done by PCC) Do ok with chemo. By following doctor orders. Formatting of this n ote might be different from the original. Patient has the following Congestive Heart Failure Goals: Two PCP Visits annually CHF Education given and reviewed with patient --sent on 04/14/23 CHF MARCELO education provided - Heart Failure [facility] 2 Patient will meet these goals by 05/02 (describe interventions done by PCC) Do ok with chemo. By following doctor orders. Instructed on symptoms CHF that need to be reported. Assisted living staff manage wts and BPs. Ginna Em RN October 07, 2023 11:07 AM Formatting of this n ote is different from the original. Images from the original note were not included. Patient has the following Congestive Heart Failure Goals: Two PCP Visits annually CHF Education given and reviewed with patient --sent on 04/14/23 CHF MARCELO education provided - Heart Failure [facility] 2 Patient will meet these goals by 05/02 (describe interventions done by PCC) Do ok with chemo. By following doctor orders. Instructed on symptoms CHF that need to be reported. Assisted living staff manage wts and BPs. Ginna Em RN October 07, 2023 11:07 AM SALTY SIX! Avoid or limit the Salty Six. This is the name the [place] [employer] uses for: 1. Breads, rolls, bagels, flour tortillas and wraps 2. Cold cuts and cured meats 3. Pizza 4. Be careful with poultry. It is best to buy raw poultry and cook it yourself without sodium. Check the label for added sodium (poultry and other meats are often injected with sodium: fresh chicken in a 15% solution ). Avoid breaded poultry and meats; the breading contains high amounts of sodium. 5. Soups, except homemade soups made without salt 6. Sandwiches made with lunchmeat and condiments, such as ketchup INstructed on and sent in [employer] message. Ginna Em RN July 05, 2024 2:06 PM Personal health goal Comment on above: Formatting of this n ote might be different from the original. Patient has the following general goals: Two PCP visits annually Patient Stated goal: wants to do regular exercise throughout the year. Patient will meet these goals by 24 (describe interventions done by PCC) Formatting of this n ote might be different from the original. Patient has the following general goals: Two PCP visits annually Patient Stated goal: wants to do regular exercise throughout the year. Patient will meet these goals by 11.24 (describe interventions done by PCC) Patient is going to an exercise class at his [facility] facility. Ginna Em RN January 04, 2024 10:23 AM Formatting of this n ote might be different from the original. Patient has the following general goals: Two PCP visits annually Patient Stated goal: wants to do regular exercise throughout the year. Patient will meet these goals by 10.07.24 (describe interventions done by PCC) Patient is going to an exercise class at his A/L facility. Ginna Em RN January 04, 2024 10:23 AM Patient goes to the exercise room at the facility three days a week. Ginna Em RN April 12, 2024 10:50 AM Personal health goal Comment on above: Formatting of this n ote might be different from the original. Increase exercise by getting on a scheduled exercise plan. Reevaluate in 6 months and ongoing Comment on above: Formatting of this n ote might be different from the original. Patient has the following Congestive Heart Failure Goals: Two PCP Visits annually CHF Education given and reviewed with patient --sent on 04/14/23 CHF MARCELO education provided - Heart Failure [facility] 2 Patient will meet these goals by 05/02 (describe interventions done by PCC) Do ok with chemo. By following doctor orders. Functional Status Date Assessment Result Facility 01-31-2025 Total score [AUDIT-C] 1 02/01/20 11:11 AM EDBird Lyle [facility] 05-18-2023 Functional status Ambulates;Chair [facility] Work Phone: 09-18-2022 Are you deaf, or do you have serious difficulty hearing No 09/18/2022 7:23 PM Citlalli Abarca, JESSY [facility] 09-18-2022 Are you blind, or do you have serious difficulty seeing, even when wearing glasses No 09/18/2022 7:23 PM Citlalli Abarca, JESSY [facility] 09-18-2022 Do you have serious difficulty walking or climbing stairs No 09/18/2022 7:06 PM Citlalli Abarca, JESSY [facility] 09-18-2022 Do you have difficul ty dressing or bathing No 09/18/2022 7:06 PM Citlalli Abarca, JESSY [facility] 09-18-2022 Because of a physica l, mental, or emotional condition, do you have difficulty doing errands alone such as visiting a physician's office or shopping No 09/18/2022 7:06 PM Citlalli Abarca, JESSY [facility] Mental Status Date Assessment Result Facility 05-22-2023 Cognitive function Awake;Alert;A ppropriate;Fol lows Commands [facility] Work Phone: 05-18-2023 Cognitive function Voice/Name [facility] Work Phone: 05-14-2023 Cognitive function Level Of Cons ciousness Awake;Alert;Appropriate;Fol lows Commands [facility] Work Phone: 09-18-2022 Because of a physica l, mental, or emotional condition, do you have serious difficulty concentrating, remembering, or making decisions No 09/18/2022 7:06 PM Citlalli Abarca, JESSY No [facility] Clinical Notes 12-14-2012 to 06-13-2025 Telephone Encounter - Arabella Moreno APRN.CNP - 06/13/2025 8:59 AM EDTTelephone Encounter - Arabella Moreno APRN.CNP - 06/13/2025 8:59 AM EDEsha Lerner LPN - 06/09/2025 9:49 AM EDT Note Date & Type Note Facility 06-13-2025 Telephone encounter Note Noted Arabella Moreno APRN.[employer]ICE [employer]ACH[employer] SALES REPRESENTATIVE [facility] 06-13-2025 Miscellaneous Notes Noted Arabella Moreno APRN.OFFICE MACH[employer] SALES REPRESENTATIVE Please see pt update Jody Nesbitt MA documented in this encounter [facility] 06-13-2025 Telephone encounter Note Please see pt update Jody Nesbitt MA [facility] 06-09-2025 Note HNO ID: [id number] Author: ESHA JACKSON LPN Service: ? Author Type: LICENSED NURSE Type: Progress Notes Filed: 06/09/2025 10:03 Note Text: Patient here for injection of Aranesp. Given SQ in right arm. Patient tolerated well. Esha Jackson LPN [facility] 06-09-2025 History of Presen t illness Narrative Patient here for injection of Aranesp. Given SQ in right arm. Patient tolerated well. Esha Jackson LPN documented in this encounter [place] [id number] Note [facility] 06-05-2025 History of Presen t illness Narrative Images from the original note were not included. CC: Patient presents with: Recheck: Wound check-left arm HPI Recording using [employer] software for draft documentation of the visit was discussed with the patient/authorized corporate sales representative; all questions welcomed and answered. Patient/authorized corporate sales representative agreed to proceed Narinder Luis is a 89-year-old male, with a history of cellulitis and edema, presenting for follow-up on cellulitis. Also reports concern about increase in BLE edema. Narinder presents for follow-up on cellulitis. He sustained multiple skin tears to the left upper arm and subsequently developed cellulitis. He reports persistent bruising on his arm and has been applying Band-Aids for physical protection after his bandage fell off. He notes no further drainage from the cellulitis site and denies fever. He has been on a blood thinner and resumed it last week after a brief discontinuation due to persistent bleeding from skin tears. Narinder also reports increased edema, particularly in his legs and hands, following a salty meal a few days ago. He is currently taking Lasix, half a tablet of 40 mg twice a day, and inquires about temporarily increasing the dose to manage the edema. 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 ([facility]) 12/01/2022 CVA (cerebral vascular accident) ([facility]) 08/22/2022 Diverticulosis H/O echocardiogram 09/16/2022 EF 68 5 %, mod concentric LVH, mod TR, mild-mod MR with mod MAC History of anemia History of CVA (cerebrovascular accident) 08/22/2022 Pontine infarction, R>L History of stress test 10/12/2024 EF 43%, mild ischemia involving the apex Hx of CABG 07/22/2021 4 vessel CABG with ORNELAS-LAD, SVG-RI, SVG-OM, and SVG-RCA in [place] Hypertension 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 2017 when he's been off medication Nocturnal hypoxemia On oxygen at night Osteoarthritis, generalized Pacemaker 09/17/2022 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 Vitamin D deficiency 07/11/2020 PAST SURGICAL HISTORY Procedure Laterality Date ANKLE RIGHT OP SURGERY Right 12/18/2020 Dr Arreola [facility] ARTHROPLASTY TOTAL SHOULDER 11/09/2008 right ARTHROSCOPY OF JOINT UNLISTED 1999 Elbow right CABG (4) VEIN GRAFTS & ARTERIAL GRAFT(S) 07/21/2021 In [facility] [place] COLONOSCOPY FLX DX W/COLLJ SPEC WHEN PFRMD 09/01/2005 Colonoscopy COLONOSCOPY FLX DX W/COLLJ SPEC WHEN PFRMD 09/27/2015 Colonoscopy REMOVAL OF TONSILS,<12 Y/O S $ DUAL CHMBR PACER [id number] Left 09/17/2022 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 ALLERGIES Simvastatin MEDICATIONS furosemide (LASIX) 40 mg tablet Take 0.5 tablets by mouth two times a day. AM and noon. Okay to take an extra 0.5 tab in the AM if swelling increases (no more than two days) doxycycline monohydrate (MONODOX) 100 mg capsule Take 1 capsule by mouth two times a day for 7 days. atorvastatin (LIPITOR) 20 mg tablet Take 1 tablet by mouth once daily. rivaroxaban (XARELTO) 20 mg tablet Take 1 tablet by mouth daily with dinner. Resume Sep 20 2022 levothyroxine (SYNTHROID) 100 mcg tablet Take 1 tablet by mouth once daily. Take on empty stomach cholecalciferol (VITAMIN D3) 1,000 unit tab tablet Take by mouth once daily. folic acid 1 mg tablet Take 1 tablet by mouth once daily. ADULT LOW DOSE ASPIRIN ORAL Take 81 mg by mouth once daily. nitroglycerin sublingual (NITROQUICK) 0.4 mg SL tablet nitroglycerin 0.4 mg sublingual tablet cyanocobalamin (VITAMIN B-12) 1,000 mcg tab Take 1,000 mcg by mouth once daily. polyethylene glycol 3350 (MIRALAX, GLYCOLAX) 17 gram packet Take 17 g by mouth once daily as needed for constipation. Dissolve dose in 4 - 8 ounces of liquid and take as directed. MULTIVITAMIN TABLET Take 1 tablet by mouth once daily. FAMILY HISTORY Problem Relation Age of Onset Heart Mother Heart Father CHF Colon Cancer No Family History Prostate Cancer No Family History Blood Clots No Family History NO PE OR DVT Social History Tobacco Use Smoking status: Former Current packs/day: 0.00 Types: Cigarettes Quit date: 08/11/1989 Years since quittin.8 Passive exposure: Past Smokeless tobacco: Never Tobacco comments: quit 18-19 years ago Vaping Use Vaping status: Never Used Substance Use Topics Alcohol use: Yes Alcohol/week: 3.0 standard drinks of alcohol Types: 3 Glasses of wine per week Comment: occ Drug use: No BP 124/82 Pulse 84 Resp 12 Wt 74.8 kg (165 lb) SpO2 94% BMI 25.84 kg/m Physical Exam Vitals reviewed. Constitutional: Appearance: Normal appearance. Musculoskeletal: Right lower leg: Edema present. Left lower leg: Edema present. Skin: Neurological: Mental Status: He is alert. Assessment/Plan 1. Cellulitis of left upper arm (L03.114) Significant improvement noted; erythema has decreased and no further purulent drainage observed. - Continue to keep the area covered with a large Band-Aid to prevent further trauma. - Apply antibiotic ointment to the Band-Aid to prevent adhesion to the skin. - Change Band-Aid every other day to monitor healing progress. 2. Multiple skin tears (T14.8XXA) Healing well with no signs of infection or excessive drainage. - Continue to keep skin tears covered with Band-Aids. - Apply antibiotic ointment to Band-Aids to prevent adhesion to the skin. - Change Band-Aids every other day to monitor healing progress. 3. Lymphedema of both lower extremities (I89.0) Mild increase in edema noted, likely secondary to recent high sodium intake. - Increase furosemide dose from 20 mg to 40 mg for one dose per day for up to two days if edema worsens. - Monitor edema closely; if no improvement after two days, contact healthcare provider. 4. Chronic heart failure with preserved ejection fraction (HCC) (I50.32) Stable. Prescription instructions reviewed with patient as applicable. Potential red flag symptoms discussed with the patient. Reviewed appropriate action plan to take if red flag symptoms occur. Patient agreeable to treatment plan. Arabella Moreno APRN.OFF[employer] SALES REPRESENTATIVE documented in this encounter [facility] 05-30-2025 Note [facility] 05-30-2025 History of Presen t illness Narrative Images from the original note were not included. CC: Patient presents with: Wound Care: Recheck wounds on left arm HPI Recording using [employer] software for draft documentation of the visit was discussed with the patient/authorized corporate sales representative; all questions welcomed and answered. Patient/authorized corporate sales representative agreed to proceed Narinder Luis is a 89-year-old male, with a history of hypercholesterolemia, presenting for follow-up on a wound on the upper arm. Patient was seen on 05/25 for multiple skin tears to the left upper arm sustained from a fall about four days prior. Two of the skin tears were persistently bleeding for days due to Xarelto. The skin tears were cauterized using silver nitrate and a pressure dressing was applied. Today he is here with his daughter to re-evaluate the wounds. The skin tears have scabbed over except there is a third skin tear that was fine last week which developed oozing of pus. Daughter covered this with a dressing and gauze. Patient denies pain, swelling, fever, chills, body aches or fatigue. 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 ([facility]) 12/01/2022 CVA (cerebral vascular accident) ([facility]) 08/22/2022 Diverticulosis H/O echocardiogram 09/16/2022 EF 68 5 %, mod concentric LVH, mod TR, mild-mod MR with mod MAC History of anemia History of CVA (cerebrovascular accident) 08/22/2022 Pontine infarction, R>L History of stress test 10/12/2024 EF 43%, mild ischemia involving the apex Hx of CABG 07/22/2021 4 vessel CABG with ORNELAS-LAD, SVG-RI, SVG-OM, and SVG-RCA in [place] Hypertension 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 2017 when he's been off medication Nocturnal hypoxemia On oxygen at night Osteoarthritis, generalized Pacemaker 09/17/2022 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 PVC's (premature ventricular contractions) RBBB Restless leg syndrome Spinal stenosis of lumbar region with neurogenic claudication Status post ligation of left atrial appendage 07/2021 At time of CABG Thrombosis of right internal jugular vein ([facility]) 05/05/2023 Port a Cath removed. 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 Vitamin D deficiency 07/11/2020 PAST SURGICAL HISTORY Procedure Laterality Date ANKLE RIGHT OP SURGERY Right 12/18/2020 Dr Arreola [facility] ARTHROPLASTY TOTAL SHOULDER 11/09/2008 right ARTHROSCOPY OF JOINT UNLISTED 1999 [place] right CABG (4) VEIN GRAFTS & ARTERIAL GRAFT(S) 07/21/2021 In [facility] [place] COLONOSCOPY FLX DX W/COLLJ SPEC WHEN PFRMD 09/01/2005 Colonoscopy COLONOSCOPY FLX DX W/COLLJ SPEC WHEN PFRMD 09/27/2015 Colonoscopy REMOVAL OF TONSILS,<12 Y/O S $ DUAL CHMBR PACER [id number] Left 09/17/2022 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 ALLERGIES Simvastatin MEDICATIONS furosemide (LASIX) 40 mg tablet Take 0.5 tablets by mouth two times a day. AM and noon. atorvastatin (LIPITOR) 20 mg tablet Take 1 tablet by mouth once daily. rivaroxaban (XARELTO) 20 mg tablet Take 1 tablet by mouth daily with dinner. Resume Sep 20 2022 levothyroxine (SYNTHROID) 100 mcg tablet Take 1 tablet by mouth once daily. Take on empty stomach cholecalciferol (VITAMIN D3) 1,000 unit tab tablet Take by mouth once daily. folic acid 1 mg tablet Take 1 tablet by mouth once daily. ADULT LOW DOSE ASPIRIN ORAL Take 81 mg by mouth once daily. nitroglycerin sublingual (NITROQUICK) 0.4 mg SL tablet nitroglycerin 0.4 mg sublingual tablet cyanocobalamin (VITAMIN B-12) 1,000 mcg tab Take 1,000 mcg by mouth once daily. polyethylene glycol 3350 (MIRALAX, GLYCOLAX) 17 gram packet Take 17 g by mouth once daily as needed for constipation. Dissolve dose in 4 - 8 ounces of liquid and take as directed. MULTIVITAMIN TABLET Take 1 tablet by mouth once daily. doxycycline monohydrate (MONODOX) 100 mg capsule Take 1 capsule by mouth two times a day for 7 days. FAMILY HISTORY Problem Relation Age of Onset Heart Mother Heart Father CHF Colon Cancer No Family History Prostate Cancer No Family History Blood Clots No Family History NO PE OR DVT Social History Tobacco Use Smoking status: Former Current packs/day: 0.00 Types: Cigarettes Quit date: 08/11/1989 Years since quittin.8 Passive exposure: Past Smokeless tobacco: Never Tobacco comments: quit 18-19 years ago Vaping Use Vaping status: Never Used Substance Use Topics Alcohol use: Yes Alcohol/week: 3.0 standard drinks of alcohol Types: 3 Glasses of wine per week Comment: occ Drug use: No BP 116/74 Pulse 74 Resp 12 Wt 74.8 kg (165 lb) SpO2 98% BMI 25.84 kg/m Physical Exam Vitals reviewed. Constitutional: Appearance: Normal appearance. Musculoskeletal: Arms: Neurological: Mental Status: He is alert. Assessment/Plan 1. Cellulitis of left upper arm (L03.114) Multiple skin tears (T14.8XXA) Two skin tears on the upper arm healing, with scabbing observed. Scant amount of yellow purulent discharge noted. No significant pain reported upon palpation. Minimal surrounding erythema. Third skin tear below these with surrounding erythema and scant amount of purulence as well. - Applied Bactroban ointment to the wounds and covered with dressings. - Prescribed Doxycycline 100 mg PO BID for 7 days; instructed to take with food and avoid calcium-containing products to ensure proper absorption. - Advised to clean wounds with warm soapy water, dry, apply Bactroban, and cover with dressings on Thursday. - Scheduled follow-up appointment for wound evaluation on Thursday or Thursday next week. - Educated on signs of infection: increased pain, fever, chills, flu-like symptoms, spreading erythema, and excessive purulent discharge; instructed to seek medical attention if these occur. 2. USP (current) use of anticoagulants (Z79.01) Anticoagulant therapy temporarily held due to concerns about bleeding from skin tears. - Resumed anticoagulant therapy as the risk of bleeding from the wounds is now minimal. Prescription instructions reviewed with patient as applicable. Potential red flag symptoms discussed with the patient. Reviewed appropriate action plan to take if red flag symptoms occur. Patient agreeable to treatment plan. Arabella Moreno APRN.MAURICIO documented in this encounter [facility] 05-30-2025 Instructions Arabella Moreno APRN.MAURICIO - 05/30/2025 1:15 PM EDT We discussed the wound on your upper arm: - I applied antibiotic ointment (Bactroban) to the wound and covered it with a dressing. Please continue this care routine at home: - Clean the wound gently with warm, soapy water. - Dry the area thoroughly. - Apply the antibiotic ointment (Bactroban) to the wound. - Cover it with a dressing and wrap it with gauze. - Your sister can change the dressing on Thursday. If possible, have her follow the same care routine outlined above. - Leave the scabbed areas on your lower arm open to air unless you notice that they are being bumped or irritated. In that case, you may cover them lightly for protection. We discussed signs of infection to monitor for: - Please contact our office immediately if you notice any of the following: - Increased pain in the arm. - Fever, chills, or flu-like symptoms. - Redness spreading beyond the dressing. - Heavy drainage or pus from the wound. We discussed restarting your blood thinner: - You may restart your blood thinner now that most of the wound has scabbed over. The risk of significant bleeding is minimal at this point. We discussed additional antibiotic treatment: - I prescribed Doxycycline, to be taken twice daily for one week. This has been sent to your preferred pharmacy ([facility]). - Take this medication with food. - Avoid calcium-containing foods (milk, cheese, yogurt) or supplements within two hours of taking the medication, as calcium can interfere with absorption. Follow-up: - Please return to the office on Thursday or Thursday next week for a follow-up visit so I can reassess the wound. Let us know which day works best for you. If you have any questions or concerns before your next visit, please contact our office. documented in this encounter [facility] 05-26-2025 Note HNO ID: [id number] Author: ESHA JACKSON LPN Service: ? Author Type: LICENSED NURSE Type: Progress Notes Filed: 05/26/2025 10:18 Note Text: Aranesp injection given SQ in RLQ. Patient tolerated well. Esha Jackson LPN [facility] 07-18-2025 History of Presen t illness Narrative Aranesp injection given SQ in RLQ. Patient tolerated well. Esha Jackson LPN documented in this encounter [facility] 05-26-2025 Telephone encounter Note Patient notified and took today dose already so aware none sat/sun/ or Thursday till seen in office. Lupis Clarke MA [facility] 05-26-2025 Miscellaneous Notes Patient notified and took today dose already so aware none sat/sun/ or Thursday till seen in office. Lupis Clarke MA Please call patient and make sure he is aware to hold the Xarelto until he is seen for follow-up on Thursday Arabella Moreno APRN.OFFICE [employer]ACH[employer] SALES REPRESENTATIVE documented in this encounter [facility] 05-26-2025 Telephone encounter Note Please call patient and make sure he is aware to hold the Xarelto until he is seen for follow-up on Thursday Arabella Moreno APRN.OFFICE MACHINES SALES REPRESENTATIVE [facility] 05-26-2025 Note [facility] 05-26-2025 History of Presen t illness Narrative Images from the original note were not included. CC: Patient presents with: Fall: fell 4 days ago. Wound is bleeding and soaking through gauze HPI Recording using [employer] software for draft documentation of the visit was discussed with the patient/authorized corporate sales representative; all questions welcomed and answered. Patient/authorized corporate sales representative agreed to proceed Narinder Luis is a 89-year-old male, with a history of atrial fibrillation on Xarelto, presenting with persistent bleeding from multiple lacerations sustained during a fall. Narinder sustained multiple skin tears to the left arm during a fall in the early childhood on Thursday. Paramedics assisted him and applied initial bandages. By Thursday, the bandages were soaked through, and his daughter re-bandaged the wounds. Since then, he has had 3-4 bandage changes by nurses. Narinder is on Xarelto, and the bleeding has been persistent, particularly from two of the skin tears on the left upper arm. His daughter reports that the bleeding is exacerbated when he puts weight on his arm, causing the wounds to reopen. Other smaller tears have scabbed over and are no longer bleeding. He has been using a walker in his apartment to be extra careful. Narinder is in independent living, and his daughter expresses concern about the ongoing need for dressing changes. She inquires about the possibility of home health services for a week to assist with wound care. 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 ([facility]) 12/01/2022 CVA (cerebral vascular accident) ([facility]) 08/22/2022 Diverticulosis H/O echocardiogram 09/16/2022 EF 68 5 %, mod concentric LVH, mod TR, mild-mod MR with mod MAC History of anemia History of CVA (cerebrovascular accident) 08/22/2022 Pontine infarction, R>L History of stress test 10/12/2024 EF 43%, mild ischemia involving the apex Hx of CABG 07/22/2021 4 vessel CABG with ORNELAS-LAD, SVG-RI, SVG-OM, and SVG-RCA in [place] Hypertension Hypothyroidism 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 2017 when he's been off medication Nocturnal hypoxemia On oxygen at night Osteoarthritis, generalized Pacemaker 09/17/2022 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 Vitamin D deficiency 07/11/2020 PAST SURGICAL HISTORY Procedure Laterality Date ANKLE RIGHT OP SURGERY Right 12/18/2020 Dr Arreola [facility] ARTHROPLASTY TOTAL SHOULDER 11/09/2008 right ARTHROSCOPY OF JOINT UNLISTED 2000 [place] right CABG (4) VEIN GRAFTS & ARTERIAL GRAFT(S) 07/21/2021 In [facility] [place] COLONOSCOPY FLX DX W/COLLJ SPEC WHEN PFRMD 09/01/2005 Colonoscopy COLONOSCOPY FLX DX W/COLLJ SPEC WHEN PFRMD 09/27/2015 Colonoscopy REMOVAL OF TONSILS,<12 Y/O S $ DUAL CHMBR PACER [id number] Left 09/17/2022 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 ALLERGIES Simvastatin MEDICATIONS furosemide (LASIX) 40 mg tablet Take 0.5 tablets by mouth two times a day. AM and noon. atorvastatin (LIPITOR) 20 mg tablet Take 1 tablet by mouth once daily. rivaroxaban (XARELTO) 20 mg tablet Take 1 tablet by mouth daily with dinner. Resume Sep 20 2022 levothyroxine (SYNTHROID) 100 mcg tablet Take 1 tablet by mouth once daily. Take on empty stomach cholecalciferol (VITAMIN D3) 1,000 unit tab tablet Take by mouth once daily. folic acid 1 mg tablet Take 1 tablet by mouth once daily. ADULT LOW DOSE ASPIRIN ORAL Take 81 mg by mouth once daily. nitroglycerin sublingual (NITROQUICK) 0.4 mg SL tablet nitroglycerin 0.4 mg sublingual tablet cyanocobalamin (VITAMIN B-12) 1,000 mcg tab Take 1,000 mcg by mouth once daily. polyethylene glycol 3350 (MIRALAX, GLYCOLAX) 17 gram packet Take 17 g by mouth once daily as needed for constipation. Dissolve dose in 4 - 8 ounces of liquid and take as directed. MULTIVITAMIN TABLET Take 1 tablet by mouth once daily. FAMILY HISTORY Problem Relation Age of Onset Heart Mother Heart Father CHF Colon Cancer No Family History Prostate Cancer No Family History Blood Clots No Family History NO PE OR DVT Social History Tobacco Use Smoking status: Former Current packs/day: 0.00 Types: Cigarettes Quit date: 08/11/1989 Years since quittin.8 Passive exposure: Past Smokeless tobacco: Never Tobacco comments: quit 18-19 years ago Vaping Use Vaping status: Never Used Substance Use Topics Alcohol use: Yes Alcohol/week: 3.0 standard drinks of alcohol Types: 3 Glasses of wine per week Comment: occ Drug use: No BP 104/56 Pulse 79 Resp 16 Wt 75 kg (165 lb 5.5 oz) BMI 25.90 kg/m Physical Exam Vitals reviewed. Constitutional: Appearance: Normal appearance. Musculoskeletal: Arms: Comments: Skin tears treated with silver nitrate. Hemostasis achieved, area cleansed with sterile water and dressing applied. Patient tolerated well overall with some discomfort. Neurological: Mental Status: He is alert. Assessment/Plan 1. Multiple skin tears (T14.8XXA) Persistent bleeding from two skin tears sustained during a fall on Thursday, exacerbated by anticoagulation therapy. - Applied silver nitrate to cauterize bleeding areas. - Applied pressure dressings to affected areas; advised to keep dressings in place for a couple of days to allow for hemostasis. - Follow-up on Thursday to re-evaluate - patient and daughter advised to keep dressings in place unless they become soiled or soaked through. Will hold off on home health for dressing changes for now. Patient and daughter agreeable. 2. 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 (current) use of anticoagulants (Z79.01) Patient is on Xarelto, which contributes to prolonged bleeding from skin tears. - Stop Xarelto until follow-up on Thursday - Monitor for any signs of excessive bleeding. I spent a total of 30 minutes on the date of the service which included preparing to see the patient, [id number] patient care, completing clinical documentation, performing a medically appropriate examination, wound management and counseling and educating the patient/family/caregiver. Prescription instructions reviewed with patient as applicable. Potential red flag symptoms discussed with the patient. Reviewed appropriate action plan to take if red flag symptoms occur. Patient agreeable to treatment plan. Arabella Moreno APRN.[employer] SALES REPRESENTATIVE documented in this encounter [facility] 05-23-2025 Telephone encounter Note Okay. Continue to monitor situation. [facility] 05-23-2025 Miscellaneous Notes Okay. Continue to monitor situation. Appears per note in appt phone comments that pt is at [facility]. Confirmed address is for [facility]. Nurse number listed in those comments-called and had to leave a msg for them to call us back. Called and spoke with vessel operator at [facility] and she states that pt is now in one of the Independent apartments they have. Appears nursing is no longer involved in care once pt goes to the independent side. Called and spoke with daughter Liza again who confirms pt is in an independent apartment now. Pt does have a pull cord for emergencies that rings to the nurses for assistance but otherwise pt does not receive nursing care. Liza states that pt took a Metolazone sometime and first fall was early Thursday morning (middle of the night) and second fall was early Thursday morning-again in the middle of the night. Pt told her that he doesn't really know why he fell. Pt is using his walker. The fall on Thursday, the nurses at [facility] did not respond right away so pt called 911. Paramedics called Liza and told her that he checked out okay, did not hit his head and his VS were fine. Pt did hit his left arm and had some significant bleeding from some skin tears on that arm. Liza also states that pt states has no recollection of when he bit his tongue. He told Liza he doesn't think it occurred during one of his falls. Liza is surprised he has no recollection as she said there seems to be a pretty good chunk out of his tongue and a blackened area. Liza states they are trying to keep a closer eye on pt and as far as she knows there have been no more falls since Thursday am. Liza was notified that pt should be done with his Metolazone anyways as he was only to take 6 tablets total-3 per week and that started on 05/08. No need to call Liza back unless Dr. Pleitez feels something more is needed. Check with retirement staff for additional insight on falling episodes. Patient's daughter calls and states that patient has been on metolazone for about 2-3 weeks. Daughter reports that patient has had 2 falls. Daughter was reading how medication can cause falls. Metolazone has been on hold since Thursday. Daughter reports that patient's swelling in legs is less. Patient is very vague on what causes the fall. Patient did bite tongue bad last fall. Offered to schedule appointment with provider. Daughter declined at this time. Please review and advise, Mary Ann Pabon RN documented in this encounter [facility] 05-23-2025 Telephone encounter Note Appears per note in appt phone comments that pt is at [facility]. Confirmed address is for [facility]. Nurse number listed in those comments-called and had to leave a msg for them to call us back. Called and spoke with vessel operator at [facility] and she states that pt is now in one of the Independent apartments they have. Appears nursing is no longer involved in care once pt goes to the independent side. Called and spoke with daughter Liza again who confirms pt is in an independent apartment now. Pt does have a pull cord for emergencies that rings to the nurses for assistance but otherwise pt does not receive nursing care. Liza states that pt took a Metolazone sometime and first fall was early Thursday morning (middle of the night) and second fall was early Thursday morning-again in the middle of the night. Pt told her that he doesn't really know why he fell. Pt is using his walker. The fall on Thursday, the nurses at [facility] did not respond right away so pt called 911. Paramedics called Liza and told her that he checked out okay, did not hit his head and his VS were fine. Pt did hit his left arm and had some significant bleeding from some skin tears on that arm. Liza also states that pt states has no recollection of when he bit his tongue. He told Liza he doesn't think it occurred during one of his falls. Liza is surprised he has no recollection as she said there seems to be a pretty good chunk out of his tongue and a blackened area. Liza states they are trying to keep a closer eye on pt and as far as she knows there have been no more falls since Thursday am. Liza was notified that pt should be done with his Metolazone anyways as he was only to take 6 tablets total-3 per week and that started on 05/08. No need to call Liza back unless Dr. Pleitez feels something more is needed. [facility] 05-23-2025 Telephone encounter Note Check with retirement staff for additional insight on falling episodes. [facility] 05-22-2025 Telephone encounter Note Patient's daughter calls and states that patient has been on metolazone for about 2-3 weeks. Daughter reports that patient has had 2 falls. Daughter was reading how medication can cause falls. Metolazone has been on hold since Thursday. Daughter reports that patient's swelling in legs is less. Patient is very vague on what causes the fall. Patient did bite tongue bad last fall. Offered to schedule appointment with provider. Daughter declined at this time. Please review and advise, Mary Ann Pabon RN [facility] 05-11-2025 Note HNO ID: [id number] Author: ESHA JACKSON LPN Service: ? Author Type: LICENSED NURSE Type: Progress Notes Filed: 05/11/2025 10:58 Note Text: Patient here for injection of Aranesp, given SQ in right arm. Patient tolerated well. Esha Jackson LPN [facility] 05-11-2025 History of Presen t illness Narrative Patient here for injection of Aranesp, given SQ in right arm. Patient tolerated well. Esha Jackson LPN documented in this encounter [facility] 05-08-2025 Telephone encounter Note Pt called and is notified of providers message and instructions. Pt voices understanding. Rachelle Vasquez RN [facility] 05-08-2025 Miscellaneous Notes Pt called and is notified of providers message and instructions. Pt voices understanding. Rachelle Vasquez RN The following approved medication requests have been transmitted electronically. Requested Prescriptions Signed Prescriptions Disp Refills metOLazone (ZAROXOLYN) 2.5 mg tablet 6 tablet 0 Sig: Take 1 tablet by mouth three times a week for 6 doses. Authorizing Provider: RONALDO PLEITEZ MD Note is regarding results from 04/14 on metOLazone (ZAROXOLYN) 2.5 mg tablet (Discontinued) 12 tablet 0 04/06/2025 04/25/2025 Sig: Take 1 tablet by mouth three times a week. Please review Lupis Clarke MA Patient spoke with this PSS stating that Dr. Pleitez had prescribed a little pill to help with patient's swelling. Patient stated that [facility] that swelling has gone down and ok to stop medication. Patient states that the swelling back, but not to the extent of the previous state. Please advise. documented in this encounter [facility] 05-08-2025 Telephone encounter Note The following approved medication requests have been transmitted electronically. Requested Prescriptions Signed Prescriptions Disp Refills metOLazone (ZAROXOLYN) 2.5 mg tablet 6 tablet 0 Sig: Take 1 tablet by mouth three times a week for 6 doses. Authorizing Provider: RONALDO PLEITEZ MD [facility] 05-08-2025 Telephone encounter Note Note is regarding results from 04/14 on metOLazone (ZAROXOLYN) 2.5 mg tablet (Discontinued) 12 tablet 0 04/06/2025 04/25/2025 Sig: Take 1 tablet by mouth three times a week. Please review Lupis Clarke MA [facility] 05-05-2025 Telephone encounter Note Patient spoke with this PSS stating that Dr. Pleitez had prescribed a little pill to help with patient's swelling. Patient stated that he spoke w/ Dr. Pleitez via MyChart that swelling has gone down and ok to stop medication. Patient states that the swelling back, but not to the extent of the previous state. Please advise. [facility] 04-28-2025 Note HNO ID: [id number] Author: ESHA JACKSON LPN Service: ? Author Type: LICENSED NURSE Type: Progress Notes Filed: 04/28/2025 11:53 Note Text: Patient here for injection of Aranesp. Given SQ in left arm. Patient tolerated well. Esha Jackson LPN [facility] 04-28-2025 History of Presen t illness Narrative Patient here for injection of Aranesp. Given SQ in left arm. Patient tolerated well. Esha Jackson LPN documented in this encounter [facility] 04-14-2025 Note HNO ID: [id number] Author: ESHA JACKSON LPN Service: ? Author Type: LICENSED NURSE Type: Progress Notes Filed: 04/14/2025 11:58 Note Text: Aranesp injection deferred, treatment parameter not met, Hgb 10.3. Esha Jackson LPN [facility] 04-14-2025 History of Presen t illness Narrative Aranesp injection deferred, treatment parameter not met, Hgb 10.3. Esha Jackson LPN documented in this encounter [facility] 04-07-2025 History of Presen t illness Narrative [facility] Ronaldo Pleitez MD SUBJECTIVE: Srini Luis is a 89 year old male who is here today for a follow up visit. The patient is doing well from a cardiovascular standpoint. His biggest complaint is lower extremity edema with his right leg being worse than the left. He had bypass surgery in the past in which they harvested the vein from his right lower extremity. He denies any problems of chest pain, shortness of breath, palpitations, PND orthopnea, syncope, or near syncope. 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 ([facility]) 12/01/2022 CVA (cerebral vascular accident) ([facility]) 08/22/2022 Diverticulosis H/O echocardiogram 09/16/2022 EF 68 5 %, mod concentric LVH, mod TR, mild-mod MR with mod MAC History of anemia History of CVA (cerebrovascular accident) 08/22/2022 Pontine infarction, R>L History of stress test 10/12/2024 EF 43%, mild ischemia involving the apex Hx of CABG 07/22/2021 4 vessel CABG with ORNELAS-LAD, SVG-RI, SVG-OM, and SVG-RCA in [place] Hypertension Hypothyroidism USP current use of 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 2017 when he's been off medication Nocturnal hypoxemia On oxygen at night Osteoarthritis, generalized Pacemaker 09/17/2022 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 Vitamin D deficiency 07/11/2020 PAST SURGICAL HISTORY Procedure Laterality Date ANKLE RIGHT OP SURGERY Right 12/18/2020 Dr Arreola [facility] ARTHROPLASTY TOTAL SHOULDER 11/09/2008 right ARTHROSCOPY OF JOINT UNLISTED 2000 [place] right CABG (4) VEIN GRAFTS & ARTERIAL GRAFT(S) 07/21/2021 In [facility] [place] COLONOSCOPY FLX DX W/COLLJ SPEC WHEN PFRMD 09/01/2005 Colonoscopy COLONOSCOPY FLX DX W/COLLJ SPEC WHEN PFRMD 09/27/2015 Colonoscopy REMOVAL OF TONSILS,<12 Y/O S $ DUAL CHMBR PACER [id number] Left 09/17/2022 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 FAMILY HISTORY Problem Relation Age of Onset Heart Mother Heart Father CHF Colon Cancer No Family History Prostate Cancer No Family History Blood Clots No Family History NO PE OR DVT SOCIAL HISTORY: Social History Tobacco Use Smoking status: Former Current packs/day: 0.00 Types: Cigarettes Quit date: 08/11/1989 Years since quittin.6 Passive exposure: Past Smokeless tobacco: Never Tobacco comments: quit 18-19 years ago Vaping Use Vaping status: Never Used Substance Use Topics Alcohol use: Yes Alcohol/week: 3.0 standard drinks of alcohol Types: 3 Glasses of wine per week Comment: occ Drug use: No ALLERGIES: Simvastatin CURRENT MEDICATIONS: Current Outpatient Medications Medication Sig metOLazone (ZAROXOLYN) 2.5 mg tablet Take 1 tablet by mouth three times a week. furosemide (LASIX) 40 mg tablet Take 0.5 tablets by mouth two times a day. AM and noon. atorvastatin (LIPITOR) 20 mg tablet Take 1 tablet by mouth once daily. rivaroxaban (XARELTO) 20 mg tablet Take 1 tablet by mouth daily with dinner. Resume Sep 20 2022 levothyroxine (SYNTHROID) 100 mcg tablet Take 1 tablet by mouth once daily. Take on empty stomach cholecalciferol (VITAMIN D3) 1,000 unit tab tablet Take by mouth once daily. folic acid 1 mg tablet Take 1 tablet by mouth once daily. ADULT LOW DOSE ASPIRIN ORAL Take 81 mg by mouth once daily. nitroglycerin sublingual (NITROQUICK) 0.4 mg SL tablet nitroglycerin 0.4 mg sublingual tablet cyanocobalamin (VITAMIN B-12) 1,000 mcg tab Take 1,000 mcg by mouth once daily. polyethylene glycol 3350 (MIRALAX, GLYCOLAX) 17 gram packet Take 17 g by mouth once daily as needed for constipation. Dissolve dose in 4 - 8 ounces of liquid and take as directed. MULTIVITAMIN TABLET Take 1 tablet by mouth once daily. No current facility-administered medications for this visit. Review of Systems Constitutional: Negative for activity change and fever. Respiratory: Negative for apnea, cough, chest tightness, shortness of breath, wheezing and stridor. Cardiovascular: Positive for leg swelling. Negative for chest pain and palpitations. Gastrointestinal: Negative for abdominal distention, diarrhea and vomiting. Musculoskeletal: Negative for joint swelling, neck pain and neck stiffness. Skin: Negative for color change, pallor and rash. Neurological: Negative for dizziness, syncope, weakness, light-headedness and numbness. Hematological: Does not bruise/bleed easily. Psychiatric/Behavioral: Negative for agitation, behavioral problems and confusion. The patient is not nervous/anxious. All other systems reviewed and are negative. PHYSICAL EXAMINATION: 04/07/25 1121 BP: 130/68 BP Position: Sitting Pulse: 83 Weight: 78.5 kg (173 lb) Height: 170.2 cm (5' 7) Last 3 Encounter BP Readings: Date: BP: 03/17/2025 116/57 03/03/2025 142/81 02/17/2025 95/57[DENIES ANY DIZZINESS[ Last 3 Encounter Pulse Readings: Date: Pulse: 03/17/2025 55 03/03/2025 80 02/17/2025 79 Last 3 Encounter Wt Readings: Date: Wt: 03/03/2025 76.7 kg (169 lb) 01/31/2025 76.9 kg (169 lb 8.5 oz) 01/06/2025 77.8 kg (171 lb 8 oz) Potassium Date Value 03/31/2025 4.3 mmol/L 09/20/2021 4.5 MMOL/L Sodium Date Value 03/31/2025 139 mmol/L 09/20/2021 138 MMOL/L Magnesium (mg/dL) Date Value 09/18/2022 2.2 Creatinine Date Value 03/31/2025 0.99 mg/dL 09/20/2021 0.90 MG/DL BUN Date Value 03/31/2025 30 mg/dL 09/20/2021 25 MG/DL Glucose Date Value 03/31/2025 163 mg/dL 09/20/2021 102 MG/DL PT INR (no units) Date Value 09/02/2021 1.5 (EXT) INR (no units) Date Value 10/24/2022 1.3 TSH Date Value 01/20/2025 0.605 mIU/L 06/09/2019 3.480 uU/mL NT Pro BNP (pg/mL) Date Value 03/31/2025 4,857 Physical Exam Vitals and nursing note reviewed. Constitutional: General: He is not in acute distress. Appearance: Normal appearance. He is not toxic-appearing. HENT: Head: Normocephalic and atraumatic. Nose: Nose normal. Mouth/Throat: Mouth: Mucous membranes are moist. Neck: Vascular: No carotid bruit. Cardiovascular: Rate and Rhythm: Normal rate. Rhythm irregular. Pulses: Normal pulses. Heart sounds: Normal heart sounds. No murmur heard. No friction rub. No gallop. Pulmonary: Effort: Pulmonary effort is normal. No respiratory distress. Breath sounds: Normal breath sounds. No stridor. No wheezing, rhonchi or rales. Chest: Chest wall: No tenderness. Abdominal: General: Abdomen is flat. There is no distension. Palpations: Abdomen is soft. There is no mass. Tenderness: There is no abdominal tenderness. Musculoskeletal: General: No swelling. Cervical back: Normal range of motion. No muscular tenderness. Right lower leg: Edema present. Left lower leg: Edema present. Comments: 2+ right lower extremity edema, 1+ left lower extremity edema Skin: General: Skin is warm and dry. Capillary Refill: Capillary refill takes less than 2 seconds. Coloration: Skin is not jaundiced or pale. Findings: No bruising or rash. Neurological: Mental Status: He is alert. Mental status is at baseline. Motor: No weakness. Gait: Gait normal. Psychiatric: Mood and Affect: Mood normal. Behavior: Behavior normal. Thought Content: Thought content normal. Judgment: Judgment normal. Diagnostic results: Pacemaker check: Normal Device Function Alerts or events: None Battery: MOS, 13 yrs 3 months Sensing, impedance and thresholds reviewed and tested Presenting Rhythm: was reviewed Underlying Rhythm: Chronic AFIB Heart Rate Histograms reviewed Pacing and Detection Parameters were evaluated EKG: Atrial fibrillation, 83 bpm, right bundle branch block, ASSESSMENT/PLAN: 1. Benign hypertension - ICD9: 401.1, ICD10: I10 (primary diagnosis) Target BP 130/80 or less. The pt is on chronic medications. Blood pressure controlled on current medications. 2. 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 - ICD9: 414.01, ICD10: I25.10 Four-vessel CABG 2020. Stress test 10/12/2024 showed EF 43% with mild ischemia involving the apex. Medication treatment. He is on chronic medication. He is not complaining of chest pain. 3. Mixed hyperlipidemia - ICD9: 272.2, ICD10: E78.2 Patient is on atorvastatin 20 mg daily. Managed by primary care physician. 4. Pacemaker - ICD9: V45.01, ICD10: Z95.0 The patient has a dual-chamber pacemaker. Set VVI second to chronic A-fib normal function by today's interrogation. We will plan to monitor the device by every 3-month checks and as needed. 5. CHB (complete heart block) (HCC) - ICD9: 426.0, ICD10: I44.2 Chronic, the patient has a dual-chamber pacemaker. Stable. 6. Chronic atrial fibrillation (HCC) - ICD9: 427.31, ICD10: I48.20 Chronic, asymptomatic A-fib. Heart rate control and anticoagulation strategy. Heart rate controlled by virtue of AV node dysfunction. He is on Xarelto. 7. 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 The pt is not complaining of any signs and symptoms of bleeding. The patient was instructed to call with any problems. 8. Localized edema Patient has lower extremity edema, right is worse than left. Patient had a vein harvested from his right lower extremity which is why his right leg is more swollen than the left. Primary care provider rule out DVT recently. The patient is on daily Lasix. He was started on metolazone 2.5 mg 3 times a week but has not picked it up as of yet. He wears compression hose. This is likely venous insufficiency as he is normal LV systolic function. I told him he would likely always have more swelling on the right than the left. I also instructed him to be careful that he does not become dehydrated and have orthostatic hypotension after starting newly added diuretic. documented in this encounter [facility] 04-07-2025 Note HNO ID: [id number] Author: IRAM JOHNSON APRN.OFFICE MACH[employer] SALES REPRESENTATIVE Service: ? Author Type: Nurse Practitioner Type: Progress Notes Filed: 04/07/2025 11:40 Note Text: [facility] Ronaldo Pleitez MD SUBJECTIVE: Sirni Luis is a 89 year old male who is here today for a follow up visit. The patient is doing well from a cardiovascular standpoint. His biggest complaint is lower extremity edema with his right leg being worse than the left. He had bypass surgery in the past in which they harvested the vein from his right lower extremity. He denies any problems of chest pain, shortness of breath, palpitations, PND orthopnea, syncope, or near syncope. 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 ([facility]) 12/01/2022 CVA (cerebral vascular accident) ([facility]) 08/22/2022 Diverticulosis H/O echocardiogram 09/16/2022 EF 68?5 %, mod concentric LVH, mod TR, mild-mod MR with mod MAC History of anemia History of CVA (cerebrovascular accident) 08/22/2022 Pontine infarction, R>L History of stress test 10/12/2024 EF 43%, mild ischemia involving the apex Hx of CABG 07/22/2021 4 vessel CABG with ORNELAS-LAD, SVG-RI, SVG-OM, and SVG-RCA in [place] Hypertension Hypothyroidism USP current use of 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 2017 when he's been off medication Nocturnal hypoxemia On oxygen at night Osteoarthritis, generalized Pacemaker 09/17/2022 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 Vitamin D deficiency 07/11/2020 PAST SURGICAL HISTORY Procedure Laterality Date ANKLE RIGHT OP SURGERY Right 12/18/2020 Dr Arreola [facility] ARTHROPLASTY TOTAL SHOULDER 11/09/2008 right ARTHROSCOPY OF JOINT UNLISTED 2000 [place] right CABG (4) VEIN GRAFTS AND ARTERIAL GRAFT(S) 07/21/2021 In [facility] COLONOSCOPY FLX DX W/COLLJ SPEC WHEN PFRMD 09/01/2005 Colonoscopy COLONOSCOPY FLX DX W/COLLJ SPEC WHEN PFRMD 09/27/2015 Colonoscopy REMOVAL OF TONSILS,<12 Y/O S $ DUAL CHMBR PACER [id number] Left 09/17/2022 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 FAMILY HISTORY Problem Relation Age of Onset Heart Mother Heart Father CHF Colon Cancer No Family History Prostate Cancer No Family History Blood Clots No Family History NO PE OR DVT SOCIAL HISTORY: Social History Tobacco Use Smoking status: Former Current packs/day: 0.00 Types: Cigarettes Quit date: 08/11/1989 Years since quittin.6 Passive exposure: Past Smokeless tobacco: Never Tobacco comments: quit 18-19 years ago Vaping Use Vaping status: Never Used Substance Use Topics Alcohol use: Yes Alcohol/week: 3.0 standard drinks of alcohol Types: 3 Glasses of wine per week Comment: occ Drug use: No ALLERGIES: Simvastatin CURRENT MEDICATIONS: Current Outpatient Medications Medication Sig metOLazone (ZAROXOLYN) 2.5 mg tablet Take 1 tablet by mouth three times a week. furosemide (LASIX) 40 mg tablet Take 0.5 tablets by mouth two times a day. AM and noon. atorvastatin (LIPITOR) 20 mg tablet Take 1 tablet by mouth once daily. rivaroxaban (XARELTO) 20 mg tablet Take 1 tablet by mouth daily with dinner. Resume Sep 20 2022 levothyroxine (SYNTHROID) 100 mcg tablet Take 1 tablet by mouth once daily. Take on empty stomach cholecalciferol (VITAMIN D3) 1,000 unit tab tablet Take by mouth once daily. folic acid 1 mg tablet Take 1 tablet by mouth once daily. ADULT LOW DOSE ASPIRIN ORAL Take 81 mg by mouth once daily. nitroglycerin sublingual (NITROQUICK) 0.4 mg SL tablet nitroglycerin 0.4 mg sublingual tablet cyanocobalamin (VITAMIN B-12) 1,000 mcg tab Take 1,000 mcg by mouth once daily. polyethylene (more content not included)... [facility] 04-06-2025 Miscellaneous Notes Called pts daughter and all reviewed. The following approved medication requests have been transmitted electronically. Requested Prescriptions Signed Prescriptions Disp Refills metOLazone (ZAROXOLYN) 2.5 mg tablet 12 tablet 0 Sig: Take 1 tablet by mouth three times a week. Authorizing Provider: RONALDO PLEITEZ Call for refill if effective, and tolerated. BMP in 2 weeks. Ronaldo Pleitez MD Daughter's concerned about Patient falling, he recently moved from Assisted Living to Independent Living, does not have eyes on him like before. Willing to start the medication, asking for RX to go to [facility]. Jessenia Hernández LPN Yes to concerns #1 and #2 if we try to treat edema with metolazone. Patient daughter calls and states that she looked up the medication metolazone. Daughter is concerned about a couple of things. Patient does not have blood pressure issues. Daughter reports that blood pressures tend to be on lower side. Patient is worried that medication would lower blood pressures too much and cause orthostatic hypertension. Daughter was reading that medication can cause electrolyte imbalance. Daughter is asking how likely is this, and would patient labs have to be monitored more frequently? Please review and advise, Mary Ann Pabon RN documented in this encounter [facility] 04-06-2025 Telephone encounter Note Called pts daughter and all reviewed. [facility] 04-06-2025 Telephone encounter Note The following approved medication requests have been transmitted electronically. Requested Prescriptions Signed Prescriptions Disp Refills metOLazone (ZAROXOLYN) 2.5 mg tablet 12 tablet 0 Sig: Take 1 tablet by mouth three times a week. Authorizing Provider: RONALDO PLEITEZ Call for refill if effective, and tolerated. BMP in 2 weeks. Ronaldo Pleitez MD [facility] 04-05-2025 Telephone encounter Note Daughter's concerned about Patient falling, he recently moved from Assisted Living to Independent Living, does not have eyes on him like before. Willing to start the medication, asking for RX to go to [facility]. Jessenia Hernández LPN [facility] 04-05-2025 Telephone encounter Note Yes to concerns #1 and #2 if we try to treat edema with metolazone. [facility] 04-05-2025 Telephone encounter Note Patient daughter calls and states that she looked up the medication metolazone. Daughter is concerned about a couple of things. Patient does not have blood pressure issues. Daughter reports that blood pressures tend to be on lower side. Patient is worried that medication would lower blood pressures too much and cause orthostatic hypertension. Daughter was reading that medication can cause electrolyte imbalance. Daughter is asking how likely is this, and would patient labs have to be monitored more frequently? Please review and advise, Mary Ann Pabon RN [facility] 03-31-2025 Note HNO ID: [id number] Author: ESHA JACKSON LPN Service: ? Author Type: LICENSED NURSE Type: Progress Notes Filed: 03/31/2025 12:01 Note Text: Patient here for injection of Aranesp. Given SQ in right arm. Patient tolerated well. Esha Jackson LPN [facility] 03-31-2025 Note [facility] 03-28-2025 Note [facility] 03-27-2025 Note [facility] 03-27-2025 History of Presen t illness Narrative This note was created using [employer]Bot[employer]. Subjective Patient presents with: Right leg Recording using ambient Ntirety software for draft documentation of the visit was discussed with the patient/authorized corporate sales representative; all questions welcomed and answered. Patient/authorized corporate sales representative agreed to proceed Narinder is a 89-year-old male, with a history of bilateral lower extremity edema, presenting with localized swelling in the right leg. Narinder reports a 1-2 month history of localized swelling in the right calf, distinct from previous bilateral lower extremity edema. The swelling is variable, with some days being worse than others, and is accompanied by a pink discoloration of the right ankle and foot, which contrasts with the normal coloration of the left foot. Narinder also notes occasional restlessness in the right leg, necessitating movement, but denies any associated pain, pruritus, burning, fever, or dyspnea. The left leg remains unaffected. Narinder has been on Xarelto for several years and is also taking furosemide at lower doses that previously recommended due to urinary urgency issues in the past.. He wears compression stockings daily and reports no recent changes in medication, EXCEPT initiation of darbepoetin marilu infusions for anemia.. He has not consulted a specialist for circulation or lymphedema. Review of Systems Constitutional: Negative for fatigue, fever and unexpected weight change. HENT: Negative for congestion. Respiratory: Negative for cough, chest tightness, shortness of breath and wheezing. Cardiovascular: Positive for leg swelling. Negative for chest pain and palpitations. Gastrointestinal: Negative. Genitourinary: Positive for urgency. Skin: Positive for color change. Neurological: Negative for dizziness and headaches. 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) Cva (Cerebral Vascular Accident) ([facility]) Correction Current Use of Anticoagulant Lymphedema of Both Lower Extremities Osteoarthritis, Generalized History of Anemia Benign Hypertension Diverticulosis Nocturnal Hypoxemia Rbbb Restless Leg Syndrome Mds (Myelodysplastic Syndrome) ([facility]) Myasthenia Gravis ([facility]) Vertebral Artery Occlusion, Left Venous Stasis of Both Lower Extremities 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) History of Cva (Cerebrovascular Accident) Chronic Atrial Fibrillation ([facility]) Chb (Complete Heart Block) ([facility]) Social History Tobacco Use Smoking status: Former Current packs/day: 0.00 Types: Cigarettes Quit date: 08/11/1989 Years since quittin.6 Passive exposure: Past Smokeless tobacco: Never Tobacco comments: quit 18-19 years ago Vaping Use Vaping status: Never Used Substance Use Topics Alcohol use: Yes Alcohol/week: 3.0 standard drinks of alcohol Types: 3 Glasses of wine per week Comment: occ Drug use: No Current Outpatient Medications Medication Sig furosemide (LASIX) 40 mg tablet Take 0.5 tablets by mouth two times a day. AM and noon. atorvastatin (LIPITOR) 20 mg tablet Take 1 tablet by mouth once daily. rivaroxaban (XARELTO) 20 mg tablet Take 1 tablet by mouth daily with dinner. Resume Sep 20 2022 levothyroxine (SYNTHROID) 100 mcg tablet Take 1 tablet by mouth once daily. Take on empty stomach cholecalciferol (VITAMIN D3) 1,000 unit tab tablet Take by mouth once daily. folic acid 1 mg tablet Take 1 tablet by mouth once daily. ADULT LOW DOSE ASPIRIN ORAL Take 81 mg by mouth once daily. nitroglycerin sublingual (NITROQUICK) 0.4 mg SL tablet nitroglycerin 0.4 mg sublingual tablet cyanocobalamin (VITAMIN B-12) 1,000 mcg tab Take 1,000 mcg by mouth once daily. polyethylene glycol 3350 (MIRALAX, GLYCOLAX) 17 gram packet Take 17 g by mouth once daily as needed for constipation. Dissolve dose in 4 - 8 ounces of liquid and take as directed. MULTIVITAMIN TABLET Take 1 tablet by mouth once daily. No current facility-administered medications for this visit. Objective BP 106/58 (BP Site: Left Arm, BP Position: Sitting, BP Cuff Size: Large Adult) Pulse 68 Resp 16 Wt 79 kg (174 lb 2.6 oz) BMI 27.28 kg/m Physical Exam Constitutional: General: He is not in acute distress. Appearance: He is not ill-appearing or diaphoretic. Eyes: Conjunctiva/sclera: Conjunctivae normal. Cardiovascular: Rate and Rhythm: Normal rate and regular rhythm. Heart sounds: S1 normal and S2 normal. No murmur heard. Comments: Increased localized edema of right calf. No cords, no tenderness. Pulmonary: Effort: No respiratory distress. Breath sounds: Examination of the right-lower field reveals rales. Examination of the left-lower field reveals rales. Rales present. Comments: Crackles/interstitial sounds at bases. Abdominal: General: There is no distension. Musculoskeletal: Right lower le+ Pitting Edema present. Left lower le+ Pitting Edema present. Skin: Findings: Erythema present. Comments: Stasis erythema right distal leg, ankle, and feet. Neurological: General: No focal deficit present. Mental Status: He is alert. Comments: On wheelchair, using a cane for transfers. Assessment and Plan 1. Lymphedema of right lower extremity - ICD9: 457.1, ICD10: I89.0 (primary diagnosis) - US DVT LOWER BILATERAL - BASIC METABOLIC PANEL - NT PRO BNP 2. Lymphedema of both lower extremities - ICD9: 457.1, ICD10: I89.0 - US DVT LOWER BILATERAL - BASIC METABOLIC PANEL - NT PRO BNP We discussed the swelling in your right leg: - You reported localized swelling in the calf area of your right leg, with some redness and pink discoloration in the foot and ankle. You noted that this has been ongoing for 6 weeks to 2 months, with some days being worse than others. There is no associated pain, fever, shortness of breath, or changes in your other leg. - I will order an ultrasound of both legs to evaluate circulation and check for blood clots, even though you are currently taking Xarelto. This will help us determine the cause of the swelling. - If no blood clot is found, we may consider adding an extra dose of your water pill (furosemide) for a short period to help reduce the swelling. However, since you find the water pill inconvenient, we will hold off on this until we have the test results. - If no blood clot is present and the swelling persists, I recommend a referral to a lymphedema specialist for further evaluation and management. You are already wearing compression stockings daily, so we will explore additional options if needed. We discussed your upcoming blood work: - When you come in for your blood work this Thursday for Dr. Galloway, please ask the lab to check for my orders for blood chemistry and a test for congestive heart failure. These results will help guide our next steps, including whether to adjust your water pill dosage. Next steps: - We will schedule an ultrasound of your legs to evaluate circulation and check for blood clots. This may be done today if there is an opening, or as soon as possible. - Please follow up with me after your blood work and ultrasound results are available so we can discuss the findings and adjust your treatment plan as needed. If you do not already have a follow-up appointment scheduled, please contact our office to arrange one. Ronaldo Pleitez MD documented in this encounter [facility] 03-17-2025 Note HNO ID: [id number] Author: ESHA JACKSON LPN Service: ? Author Type: LICENSED NURSE Type: Progress Notes Filed: 03/17/2025 15:48 Note Text: Patient here for injection of Aranesp. Given SQ in left arm. Patient tolerated well. Esha Jackson LPN [facility] 03-17-2025 History of Presen t illness Narrative Patient here for injection of Aranesp. Given SQ in left arm. Patient tolerated well. Esha Jackson LPN documented in this encounter [facility] 03-17-2025 Telephone encounter Note He will continue Aranesp indefinitely. Baljinder Galloway DO [facility] 03-17-2025 Miscellaneous Notes He will continue Aranesp indefinitely. Baljinder Galloway DO Dr. Galloway, Trying to make room on 7/3 injection schedule. Patient's last order is 04/28. Is this correct, or will this injection continue on past that date? Thank you. documented in this encounter [facility] 03-17-[address] Galloway, Trying to make room on 7/3 injection schedule. Patient's last order is 04/28. Is this correct, or will this injection continue on past that date? Thank you. [facility] Work Phone: 03-03-2025 Note [facility] 02-17-2025 Note HNO ID: [id number] Author: ESHA JACKSON LPN Service: ? Author Type: LICENSED NURSE Type: Progress Notes Filed: 02/17/2025 10:06 Note Text: Patient here for injection of Aranesp. Given SQ in LEFT arm. Pt tolerated well. Esha Jackson LPN [facility] 02-17-2025 History of Presen t illness Narrative Patient here for injection of Aranesp. Given SQ in LEFT arm. Pt tolerated well. Esha Jackson LPN documented in this encounter [facility] 02-03-2025 Note HNO ID: [id number] Author: ESHA JACKSON LPN Service: ? Author Type: LICENSED NURSE Type: Progress Notes Filed: 02/03/2025 14:27 Note Text: Patient here for injection of Aranesp. Given SQ in right arm. Patient tolerated well. Esha Jackson LPN [facility] 02-03-2025 History of Presen t illness Narrative Patient here for injection of Aranesp. Given SQ in right arm. Patient tolerated well. Esha Jackson LPN documented in this encounter [facility] 01-31-2025 Instructions Arabella Moreno, MANAGER DAIRY.OFFICE MACHINES SALES REPRESENTATIVE - 01/31/2025 11:38 AM EDT HOME INSTRUCTIONS FOR MANAGEMENT OF CONSTIPATION NON-MEDICATION MEASURES: 1. Increase your intake of fluids daily. Try to include 8 - 8 ounce glasses per day. Sip on fluids throughout the day. 2. Add more fiber to your diet. The recommended daily amount of fiber is 20 to 35 grams. If you are increasing your fiber intake do so slowly to avoid bloating and discomfort. The best source of fiber comes from foods. Examples of high fiber foods include whole grain breads and cereals, fruits (berries, prunes, oranges, etc) and vegetables (lettuce, broccoli, potato with skins, etc.). There are also fiber supplements available over the counter such as Metamucil or Benefiber 3. Increase your daily activity (walking, moving from bed to chair, or exercise in bed) 4. Set aside a time preferably around the same time each day (example: right after breakfast) to move bowels. MEDICATION MEASURES: 1. Miralax once daily. This is a daily medication, can adjust how much you need over time depending on your stools. For example, decrease dose to half or every other day or so if stools become too loose. Go to ER if you develop severe abdominal pain, vomiting that won't stop, fever above 100.5, rigid/hard abdomen. Screening schedule The following prevention plan is recommended: RSV Vaccine(1 - 1-dose 75+ series) Never done Influenza Vaccine(1) due on 07/10/2024 Covid-19 Vaccine(2023- season) due on 07/10/2024 WHAT YOU CAN DO TO PREVENT FALLS Many falls can be prevented. By making some changes, you can lower your chances of falling. Four things YOU can do to prevent falls for you* and your caregiver 1. Begin a regular exercise program Exercise is one of the most important ways to lower your chances of falling. It makes you stronger and helps you feel better. Exercises that improve balance and coordination (like Rinku Chi) are the most helpful. Lack of exercise leads to weakness and increases your chances of falling. Ask your doctor or health care provider about the best type of exercise program for you. 2. Have your health care provider review your medicines Have your doctor or pharmacist review all the medicines you take, even mzec-sis-hvtzorm medicines. As you get older, the way medicines work in your body can change. Some medicines, or combinations of medicines, can make you sleepy or dizzy and can cause you to fall. 3. Have your vision checked Have your eyes checked by an eye doctor at least once a year. You may be wearing the wrong glasses or have a condition like glaucoma or cataracts that limits your vision. Poor vision can increase your chances of falling. 4. Make your home safer About half of all falls happen at home. To make your home safer: Remove things you can trip over (like papers, books, clothes, and shoes) from stairs and places where you walk. Remove small throw rugs or use double-sided tape to keep the rugs from slipping. Keep items you use often in cabinets you can reach easily without using a step stool. Have grab bars put in next to your toilet and in the tub or shower. Use non-slip mats in the bathtub and on shower floors. Improve the lighting in your home. As you get older, you need brighter lights to see well. Hang light-weight curtains or shades to reduce glare. Have handrails and lights put in on all staircases. Wear shoes both inside and outside the house. Avoid going barefoot or wearing slippers. For more information, contact: Centers for Disease Control and Prevention www.cdc.gov/injury * This information may not apply if you have certain medical conditions. documented in this encounter [facility] 01-31-2025 Note [facility] 01-31-2025 History of Presen t illness Narrative Images from the original note were not included. Srini Luis is a 89 year old male here for a Medicare wellness visit. Medicare Health Risk Assessment General Health Good Exercise: Minutes/Day 30 min Exercise: Days/Week 3 days Alcohol: Daily Use Monthly or less Alcohol: Drinks/Day 1 or 2 Alcohol: 6 or more drinks Never Feel off balance Yes (Uses a cane) Concerns: Teeth/Dentures No (In the process of getting lower implants) Concerns: Sexual function No Troubled by feelings Decline Frequency: Eating healthy diet Several days ADLs requiring help Walking Safety precautions in home/vehicle Yes Smoke, vape, chews tobacco No Difficulty hearing Yes (Does not wear hearin aides) Difficulty seeing Yes (Wears prescription glasses) Current Providers Specialists: I have reviewed specialist-related care of the patient in the medical record. Current care team: Patient Care Team: Ronaldo Pleitez MD as PCP - General (Internal Medicine) Arabella Moreno, MARTIN.OFFICE MACHINES SALES REPRESENTATIVE as Photographer'S Assistant (Internal Medicine) Baljinder Galloway DO (Hematology). Conrad De La Rosa DPM (Podiatry) [facility]. [place] Miranda MD. Laron Arreola (Orthopedics) Israel Minor MD (Cardiology) Sanket Rob DO (Neurology) Medical/Family history review Reviewed and updated problem list, medical/surgical/family/social history, medications, and allergies. Opioid use review Opioid Medications (last 90 days) No data to display Anxiety/Depression screening Recommendation: no further intervention at this time Cognitive screening Mini Cog Score: 5 Cognitive screening reviewed and No further action needed (score 3-5). Functional Observation Was the patient's Timed Up & Go test unsteady or >= 12 seconds? Yes Advance Care Planning Surrogate decision maker documented and/or advance directives scanned in chart Measurements BP 126/78 Pulse 78 Resp 14 Wt 76.9 kg (169 lb 8.5 oz) SpO2 98% BMI 26.55 kg/m Vision Screening: Follows with optometry/ophthalmology Assessment/Plan Medicare annual wellness visit, subsequent (Z00.00) - Counseled on healthy diet and regular exercise - Fall avoidance information provided - Personalized prevention plan provided Additional Concerns The following concerns were also discussed with the patient: -Bilateral lower non-pitting edema, Reports that he does not elevate his legs during the day or at night. He does wear compression stockings during the day.Is being followed by cardiology. Denies waking up short of breath at night,chest pain,heart palpitations.fatigue,weight gain,cough,abdominal bloating or hard stomach,change in appetite and urination and cough. -Constipation: Reports he has a bowel movement every 2-3 days. Reports that the Miralax is effective in helping to produce a bowel movement. Denies fewer than three stools a week,hard, dry or lumpy stools,straining or pain when passing stools,feeling that not all stool has passed and feeling that the rectum is blocked. HTN-Medication changes:No Taking all medications as prescribed: Yes Side effects: No Home BP's: No Last 3 Encounter BP Readings: Date: BP: 01/31/2025 126/78 01/20/2025 112/69 01/06/2025 115/70 Hypothyroidism-taking levothyroxine daily on an empty stomach: yes TSH Date Value 01/20/2025 0.605 mIU/L 02/18/2024 0.135 mIU/L 06/09/2019 3.480 uU/mL 03/14/2019 3.690 uU/mL Physical Exam Vitals and nursing note reviewed. Constitutional: General: He is awake. Appearance: Normal appearance. Cardiovascular: Rate and Rhythm: Normal rate and regular rhythm. Pulses: Normal pulses. Heart sounds: Normal heart sounds. Pulmonary: Effort: Pulmonary effort is normal. Breath sounds: Normal breath sounds. Abdominal: General: Abdomen is flat. Bowel sounds are normal. Tenderness: There is no abdominal tenderness. Musculoskeletal: Right lower leg: Edema present. Left lower leg: Edema present. Skin: General: Skin is warm and dry. Neurological: Mental Status: He is alert. Psychiatric: Mood and Affect: Mood normal. Behavior: Behavior normal. Behavior is cooperative. Thought Content: Thought content normal. Judgment: Judgment normal. ASSESSMENT/PLAN: 1. Medicare annual wellness visit, subsequent - ICD9: V70.0, ICD10: Z00.00 (primary diagnosis) See medicare wellness plan 2. Lymphedema of both lower extremities - ICD9: 457.1, ICD10: I89.0 Stable on Lasix - FUROSEMIDE 40 MG TABLET 3. Chronic heart failure with preserved ejection fraction (HCC) - ICD9: 428.9, ICD10: I50.32 Stable, follow-up with cardiology as scheduled - FUROSEMIDE 40 MG TABLET 4. Primary hypertension - ICD9: 401.9, ICD10: I10 - Controlled - Continue current medications - Recommend home blood pressure monitoring, to bring results to next visit - Encouraged sodium restriction, DASH or Mediterranean diet 5. Hypothyroidism, unspecified type - ICD9: 244.9, ICD10: E03.9 - continue current dose of Synthroid 6. Constipation due to slow transit - ICD9: 564.01, ICD10: K59.01 Symptom management discussed, see patient instructions Arabella Moreno APRN.CNP Medical Decision Making: Problems: Moderate: 2+ stable chronic illnesses Risk: Low: Low risk from testing/treatment Moderate: Drug management Medical Decision Making Level: 4 - Moderate documented in this encounter [facility] 01-20-2025 Note [facility] 01-20-2025 History of Presen t illness Narrative Patient presents with: Imm/Inj Pt is identified by name and birthdate: Yes. Allergies and medications reviewed. Latex allergy? No. Does this patient have: Unplanned weight loss or gain of greater than 10 pounds, or a change of appetite over the last year? No Does the patient have any concerns about safety in the home/falls? Not at risk for falls Has the patient fallen in the past year? No Does the patient have difficulty performing or completing routine daily living activities? No Does this patient have concerns about personal safety? No Is patient having pain? Pain: No=0 (pain 0 on a scale of 0-10). Health Maintenance: Reviewed and updated. Does patient have MyChart access or Caregiver proxy: yes Pt/Caregiver willingness and readiness to learn assessed: Yes. Barriers: none Aranesp injection administered, left arm, tolerated well, no immediate adverse reactions noted. Shanice Green LPN documented in this encounter [facility] 01-06-2025 Note [facility] 01-06-2025 History of Presen t illness Narrative Patient here for injection of Retacrit. Given SQ in right arm. Patient tolerated well.For all other information regarding today, see today's OV note with Dr Galloway. Esha Jackson LPN documented in this encounter [facility] 01-06-2025 Note [facility] 01-06-2025 History of Presen t illness Narrative Diagnosis: 1) CMML. HPI: The patient is an 89-year-old male with a past medical history significant for coronary artery disease (four-vessel CABG), stroke, paroxysmal atrial fibrillation, hypertension, hypothyroidism, heart block (PPM) who underwent a work-up for macrocytic anemia. Patient had a history of B12 deficiency associated with macrocytic anemia. However he had become progressively more anemic and was seen by Dr. Rowell and underwent bone marrow biopsy in 10/2022. Cytogenetics (see separate report) revealed a normal male karyotype: 46,XY[20]. The myeloid NGS panel (see separate report) identified the following variants (with VAFs): SF3B1 p.H662Q (41.7%) and TET2 p.[id number]*6 (46%). 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 The threshold for absolute monocytosis in CMML has since been lowered to 0.5 k/uL (from 1.0 k/uL in the 2016 WHO), which accounts for the discrepancy. Further, the category of CMML-0 (which this neoplasm would have otherwise been classified as) has been eliminated by both classification systems in lieu of a two-tiered blast-based grading scheme (of CMML-1 and -2 only). The patient had a single CBC since 2019 (specifically 08/24/2022) in which there was not a relative monocytosis; this is attributable to transiently increased neutrophils in the setting of acute stroke/ischemia, and is here regarded as an outlier. Normal cytogenetics. Moved from [place] to assisted living at [facility]. Established care here. Drives. Current therapy: 1) Azacitidine. Cycle 10/14/2023. Most recent cycle 05/2023. He was also diagnosed with acute DVT of the internal jugular vein on the right. This occurred despite anticoagulation with rivaroxaban. Port was removed. He was admitted to [facility] 05/15 through 05/18 for gram-negative bacteremia attributed to right lower extremity cellulitis. He was initially treated with IV broad-spectrum antibiotics including Zosyn and discharged on Levaquin. Blood cultures cleared prior to discharge. Presents for ongoing oncologic management. Interim history: He has no complaints today. He will be moving from assisted living to independent living. Tolerating Aranesp well. Has not required any RBC transfusions. No acute illnesses since last seen. 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; Confirmed Blk below His by His Bundle Electrogram Chronic atrial fibrillation ([facility]) Chronic heart failure with preserved ejection fraction ([facility]) 07/29/2024 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 ([facility]) 12/01/2022 CVA (cerebral vascular accident) ([facility]) 08/22/2022 Diverticulosis H/O echocardiogram 09/16/2022 EF 68 5 %, mod concentric LVH, mod TR, mild-mod MR with mod MAC History of anemia History of stress test 10/12/2024 EF 43%, mild ischemia involving the apex Hx of CABG 07/22/2021 4 vessel CABG with ORNELAS-LAD, SVG-RI, SVG-OM, and SVG-RCA in [place] Hypertension 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 2017 when he's been off medication Nocturnal hypoxemia On oxygen at night Osteoarthritis, generalized Other specified anemias 11/16/2024 Pacemaker 09/17/2022 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 Vitamin D deficiency 07/11/2020 PAST SURGICAL HISTORY Procedure Laterality Date ANKLE RIGHT OP SURGERY Right 12/18/2020 Dr Arreola [facility] ARTHROPLASTY TOTAL SHOULDER 11/09/2008 right ARTHROSCOPY OF JOINT UNLISTED 1999 Elbow right CABG (4) VEIN GRAFTS & ARTERIAL GRAFT(S) 07/21/2021 In [facility] COLONOSCOPY FLX DX W/COLLJ SPEC WHEN PFRMD 09/01/2005 Colonoscopy COLONOSCOPY FLX DX W/COLLJ SPEC WHEN PFRMD 09/27/2015 Colonoscopy REMOVAL OF TONSILS,<12 Y/O S $ DUAL CHMBR PACER [id number] Left 09/17/2022 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 ALLERGIES Allergen Reactions Simvastatin Other: See Comments Elevated CK Current Outpatient Medications Medication Sig atorvastatin (LIPITOR) 20 mg tablet Take 1 tablet by mouth once daily. rivaroxaban (XARELTO) 20 mg tablet Take 1 tablet by mouth daily with dinner. Resume Sep 20 2022 levothyroxine (SYNTHROID) 100 mcg tablet Take 1 tablet by mouth once daily. Take on empty stomach cholecalciferol (VITAMIN D3) 1,000 unit tab tablet Take by mouth once daily. folic acid 1 mg tablet Take 1 tablet by mouth once daily. furosemide (LASIX) 40 mg tablet Take 0.5 tablets by mouth two times a day. AM and noon. ADULT LOW DOSE ASPIRIN ORAL Take 81 mg by mouth once daily. nitroglycerin sublingual (NITROQUICK) 0.4 mg SL tablet nitroglycerin 0.4 mg sublingual tablet cyanocobalamin (VITAMIN B-12) 1,000 mcg tab Take 1,000 mcg by mouth once daily. polyethylene glycol 3350 (MIRALAX, GLYCOLAX) 17 gram packet Take 17 g by mouth once daily as needed for constipation. Dissolve dose in 4 - 8 ounces of liquid and take as directed. MULTIVITAMIN TABLET Take 1 tablet by mouth once daily. No current facility-administered medications for this visit. Facility-Administered Medications Ordered in Other Visits Medication Dose Route Frequency Darbepoetin Marilu In Polysorbat 200 mcg injection (ARANESP) 200 mcg SUBCUTANEOUS ONCE Social History Tobacco Use Smoking status: Former Current packs/day: 0.00 Types: Cigarettes Quit date: 08/11/1989 Years since quittin.4 Passive exposure: Past Smokeless tobacco: Never Tobacco comments: quit 18-19 years ago Vaping Use Vaping status: Never Used Substance Use Topics Alcohol use: Yes Alcohol/week: 3.0 standard drinks of alcohol Types: 3 Glasses of wine per week Comment: occ Drug use: No Family History Problem Relation Age of Onset Heart Mother Heart Father CHF Colon Cancer No Family History Prostate Cancer No Family History Blood Clots No Family History NO PE OR DVT ROS: Constitutional: Denies episodes of fever and night sweats. Neuro: Denies TRACEY, vertigo, dizziness. Denies symptoms of neuropathy. HEENT: No recent change in voice, vision or hearing. Resp: Denies cough, wheeze and hemoptysis. Denies shortness of breath at rest. CVS: Denies exertional chest pain, PND and orthopnea. Uses b/l compression stockings. GI: Denies dysphagia and odynophagia. Denies reflux, n/v. : Denies dysuria or gross hematuria. Endo: Denies hot flashes. Denies polyuria and polydipsia. Denies heat and cold intolerance. Musculoskeletal: Lower back pain when walking--stable. Derm: Denies rash. Denies jaundice and diffuse pruritis. Heme: See HPI. Psych: Normal mood. PHYSICAL EXAM: Vitals: Blood pressure 115/70, pulse 83, temperature 36.2 C (97.2 F), temperature source Temporal, weight 77.8 kg (171 lb 8 oz), SpO2 93%. Well-appearing and in no acute distress. EYES: Sclerae are anicteric bilaterally. RESPIRATORY: Inspiratory breath sounds are of normal intensity in all manning. No rales, wheezes or rhonchi. CARDIOVASCULAR: Rhythm is regular on today's exam. ABDOMEN: The abdomen is nondistended Extremities: Mild chronic swelling. Has compression stockings on. SKIN: No jaundice. 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 -CPSS-Mol Low risk. -Treatment with Vidaza originally complicated by right IJ thrombus despite being on rivaroxaban. Also had Gram negative sepsis from LE cellulitis. -Again discussed the rationale for ABRAHAM therapy to target hemoglobin around 10 g/dL. This will hopefully mitigate any transfusional needs and the risks incurred with repeated RBC transfusions over time. Reviewed his CBC. Differential with no monocytosis and only a few immature granulocytes. No indication of PD and no repeat bone marrow biopsy indicated. -There is well-controlled. Plan: -Continue every 2 week Aranesp if Hgb < 10.0 g/dL. -Okay for Aranesp injection today. -Okay to continue ASA and rivaroxaban. -OV/CBC/CMP/iron studies/erythropoietin/B12/MMA/ serum folate in about 3 months. Portions of this documentation were copied and pasted from my previous office visit note dated 10/31/2024 in order to provide a cohesive continuity of the history. The note has been reviewed and edited and updated as necessary. Baljinder Galloway DO documented in this encounter [facility] 12-30-2024 Note HNO ID: [id number] Author: ISRAEL MINOR MD Service: ? Author Type: Physician Type: Progress Notes Filed: 01/08/2025 22:00 Note Text: Dual Pacer Remote Check Date: December 30, 2024 Time: 2:51 PM Devices: Implants Ra Lead Biotronik-09/17/2022 - Implanted Heart Model/Cat number: ADAIR [id number] Serial number: [id number] Indigo Mixer: EnerTrac Lot number: LEFT AXILLARY VEIN Size: Right Atrial Pacing Lead Rv Lead Biotronik-09/17/2022 - Implanted Heart Model/Cat number: ADAIR S [id number] Serial number: [id number] Indigo Mixer: WeVorceRONISidense Lot number: LEFT CEPHALIC VEIN Size: Right Ventricular Pacing Lead Pacemaker Dual Pacer Biotronik-09/17/2022 - Implanted (Left) Chest Wall Model/Cat number: GUY Wood DR-Alexis [id number] Serial number: [id number] Indigo Mixer: [employer]RONISidense Lot number: INITIAL DUAL PACER IMPLANT. 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; LVEF 68%; 4V Cabg 07/22/2021; TIMMY Ligation, Post Cabg Afib; Xarelto; Last Interrogation Date: 09-27-2024 Estimated Remaining Longevity: 85% of the battery left until CHADWICK Interrogation Performed by: Stephany Abraham LPN Programming Parameters Mode: VVI Lower Rate: 60 Upper Track: N/a Upper Sensor: N/a Paced AV Delay: N/a Sensed AV Delay: N/a Atrial Refractory: N/a Mode Switch: N/a Atrial: off Right Ventricle: Threshold: N/a Programmed amp/PW: 1.0 V @ 0.75 msec R wave: 10.7 mV Sensitivity: auto Impedance: 410 ohms RV pacin% Episodes: Atrial Fib count: Chronic AFib Atrial burden: 100% Mode Switch episodes: Chronic A-fib Ventricular Fibrillation count: 0 Fast Ventricular Tachycardia count: 0 Slow Ventricular Tachycardia: 0 NSVT: 0 Summary: Normal device function. Normal pacing and sensing threshold. Battery: 85% of the battery left until CHADWICK. Histogram: ok. Atrial episodes: Chronic A-fib. Ventricular episodes: none. Follow up: 3 month device check and provider appointment. View External Cardiology - Commercial Loan Manager Strips [ID [id number]] [facility] 12-30-2024 History of Presen t illness Narrative Dual Pacer Remote Check Date: December 30, 2024 Time: 2:51 PM Devices: Implants Ra Lead Biotronik-09/17/2022 - Implanted Heart Model/Cat number: ADAIR Pena [id number] Serial number: [id number] Indigo Mixer: EnerTrac Lot number: LEFT AXILLARY VEIN Size: Right Atrial Pacing Lead Rv Lead Biotronik-09/17/2022 - Implanted Heart Model/Cat number: ADAIR Pena [id number] Serial number: [id number] Indigo Mixer: We[employer]RONISidense Lot number: LEFT CEPHALIC VEIN Size: Right Ventricular Pacing Lead Pacemaker Dual Pacer Biotronik-09/17/2022 - Implanted (Left) Chest Wall Model/Cat number: GUY [id number] Serial number: [id number] Indigo Mixer: [employer] Lot number: INITIAL DUAL PACER IMPLANT. 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; LVEF 68%; 4V Cabg 07/22/2021; TIMMY Ligation, Post Cabg Afib; Xarelto; Last Interrogation Date: 09-27-2024 Estimated Remaining Longevity: 85% of the battery left until [place] Interrogation Performed by: Stephany Abraham LPN Programming Parameters Mode: VVI Lower Rate: 60 Upper Track: N/a Upper Sensor: N/a Paced AV Delay: N/a Sensed AV Delay: N/a Atrial Refractory: N/a Mode Switch: N/a Atrial: off Right Ventricle: Threshold: N/a Programmed amp/PW: 1.0 V @ 0.75 msec R wave: 10.7 mV Sensitivity: auto Impedance: 410 ohms RV pacin% Episodes: Atrial Fib count: Chronic AFib Atrial burden: 100% Mode Switch episodes: Chronic A-fib Ventricular Fibrillation count: 0 Fast Ventricular Tachycardia count: 0 Slow Ventricular Tachycardia: 0 NSVT: 0 Summary: Normal device function. Normal pacing and sensing threshold. Battery: 85% of the battery left until CHADWICK. Histogram: ok. Atrial episodes: Chronic A-fib. Ventricular episodes: none. Follow up: 3 month device check and provider appointment. View External Cardiology - Commercial Loan Manager Strips [ID [id number]] documented in this encounter [facility] 12-23-2024 Telephone encounter Note Fax rec'd from [email or web address] for refills to [facility]. Pt last saw pcp 07/29/24. Next appt with [facility] 01/31/25. [facility] 12-23-2024 Miscellaneous Notes Fax rec'd from [email or web address] for refills to [facility]. Pt last saw pcp 07/29/24. Next appt with [facility] 01/31/25. documented in this encounter [facility] 12-23-2024 Note HNO ID: [id number] Author: ESHA JACKSON LPN Service: ? Author Type: LICENSED NURSE Type: Progress Notes Filed: 12/23/2024 10:17 Note Text: Patient here for injection of Aranesp. Given SQ in left arm. Patient tolerated well. Esha Jackson LPN [facility] 12-23-2024 History of Presen t illness Narrative Patient here for injection of Aranesp. Given SQ in left arm. Patient tolerated well. Esha Jackson LPN documented in this encounter [facility] 12-09-2024 Note [facility] 12-09-2024 History of Presen t illness Narrative Patient presents with: Imm/Inj Pt is identified by name and birthdate: Yes. Allergies and medications reviewed. Latex allergy? No. Does this patient have: Unplanned weight loss or gain of greater than 10 pounds, or a change of appetite over the last year? No Does the patient have any concerns about safety in the home/falls? Not at risk for falls Has the patient fallen in the past year? No Does the patient have difficulty performing or completing routine daily living activities? No Does this patient have concerns about personal safety? No Is patient having pain? Pain: No=0 (pain 0 on a scale of 0-10). Health Maintenance: Reviewed and updated. Does patient have MyChart access or Caregiver proxy: yes Pt/Caregiver willingness and readiness to learn assessed: Yes. Barriers: none Aranesp injection administered, left arm, tolerated well, no immediate adverse reactions noted. Shanice Green LPN documented in this encounter [facility] 11-24-2024 Note [facility] 11-24-2024 History of Presen t illness Narrative Patient here for injection of Aranesp. Given SQ in right arm. Patient tolerated well. Patient observed for 15 minutes for signs or symptoms of adverse reaction, none noted. Esha Jackson LPN documented in this encounter [facility] 11-18-2024 Telephone encounter Note Scheduled with patient Start email sent [facility] Work Phone: 11-18-2024 Miscellaneous Notes Scheduled with patient Start email sent Injection- Aranesp Spoke with pt. , given information concerning labs ,pt. Voiced understanding. PSS Please schedule for CBC/possible injection every other week. Pt. Would like to start sometime next week. Shanice Green LPN Can let him know that his blood counts do not demonstrate need for transfusion but he would benefit by starting Aranesp injections as we discussed at most recent office visit. Please schedule for CBC/possible injection every other week. Baljinder Galloway DO documented in this encounter [facility] 11-16-2024 Telephone encounter Note Injection- Aranesp Spoke with pt. , given information concerning labs ,pt. Voiced understanding. PSS Please schedule for CBC/possible injection every other week. Pt. Would like to start sometime next week. Shanice Green LPN [facility] 11-16-2024 Telephone encounter Note Can let him know that his blood counts do not demonstrate need for transfusion but he would benefit by starting Aranesp injections as we discussed at most recent office visit. Please schedule for CBC/possible injection every other week. Baljinder Galloway DO [facility] 10-14-2024 Telephone encounter Note Phoned dental office and notified Yaritza. She stated that she will call patient and notify him of instructions. Skye Foster LPN [facility] 10-14-2024 Miscellaneous Notes Phoned dental office and notified Yaritza. She stated that she will call patient and notify him of instructions. Skye Foster LPN He will need to stop the Xarelto two days prior to the dental extractions and hold for two days after. He can then resume at usual dose. If he is still experiencing bleeding two days after the procedure he should contact this office prior to resuming Xarelto Arabella Moreno APRN.OFFICE MACH[employer]ES SALES REPRESENTATIVE Kiya- Dr. Bowers- dental surgeon office- reports patient is schedule on Thursday to have all of his lower teeth extracted. Dental staff just found out today patient is taking a blood thinner. Per med list patient taking xarelto 20 mg and asa 81 mg. Kiya asking if these need to be held for tooth extractions? Please phone Kiya with reply: [phone] documented in this encounter [facility] 10-14-2024 Telephone encounter Note He will need to stop the Xarelto two days prior to the dental extractions and hold for two days after. He can then resume at usual dose. If he is still experiencing bleeding two days after the procedure he should contact this office prior to resuming Xarelto Arabella Moreno APRN.CNP [facility] 10-14-2024 Telephone encounter Note Kiya- Dr. Bowers- dental surgeon office- reports patient is schedule on Thursday to have all of his lower teeth extracted. Dental staff just found out today patient is taking a blood thinner. Per med list patient taking xarelto 20 mg and asa 81 mg. Kiya asking if these need to be held for tooth extractions? Please phone Kiya with reply: [phone] [facility] 10-13-2024 Telephone encounter Note Patient was notified of the Providers message in chart and stated that he does not feel any different. He said he will wait until he feels his health declines before he has any testing done. [facility] 10-13-2024 Miscellaneous Notes Patient was notified of the Providers message in chart and stated that he does not feel any different. He said he will wait until he feels his health declines before he has any testing done. Let the patient know, stress test was mildly abnormal. If he does not feel he is having any symptoms that are different from the past, we do not need to do anything. If he feels like he is having chest pain or shortness of breath different from the past, we can proceed to cardiac catheterization. If he would like to proceed to cardiac catheterization, he will need to come and see me so we can schedule it. documented in this encounter [facility] 10-13-2024 Telephone encounter Note Let the patient know, stress test was mildly abnormal. If he does not feel he is having any symptoms that are different from the past, we do not need to do anything. If he feels like he is having chest pain or shortness of breath different from the past, we can proceed to cardiac catheterization. If he would like to proceed to cardiac catheterization, he will need to come and see me so we can schedule it. [facility] 10-11-2024 Note [facility] 10-11-2024 History of Presen t illness Narrative Diagnosis: 1) CMML. HPI: The patient is an 88-year-old male with a past medical history significant for coronary artery disease (four-vessel CABG), stroke, paroxysmal atrial fibrillation, hypertension, hypothyroidism, heart block (PPM) who underwent a work-up for macrocytic anemia. Patient had a history of B12 deficiency associated with macrocytic anemia. However he had become progressively more anemic and was seen by Dr. Rowell and underwent bone marrow biopsy in 10/2022. Cytogenetics (see separate report) revealed a normal male karyotype: 46,XY[20]. The myeloid NGS panel (see separate report) identified the following variants (with VAFs): SF3B1 p.H662Q (41.7%) and TET2 p.[id number]*6 (46%). 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 The threshold for absolute monocytosis in CMML has since been lowered to 0.5 k/uL (from 1.0 k/uL in the 2016 WHO), which accounts for the discrepancy. Further, the category of CMML-0 (which this neoplasm would have otherwise been classified as) has been eliminated by both classification systems in lieu of a two-tiered blast-based grading scheme (of CMML-1 and -2 only). The patient had a single CBC since 2019 (specifically 08/24/2022) in which there was not a relative monocytosis; this is attributable to transiently increased neutrophils in the setting of acute stroke/ischemia, and is here regarded as an outlier. Normal cytogenetics. Moved from [place] to assisted living at [facility]. Established care here. Drives. Current therapy: 1) Azacitidine. Cycle 10/14/2023. Most recent cycle 05/2023. He was also diagnosed with acute DVT of the internal jugular vein on the right. This occurred despite anticoagulation with rivaroxaban. Port was removed. He was admitted to [facility] 05/15 through 05/18 for gram-negative bacteremia attributed to right lower extremity cellulitis. He was initially treated with IV broad-spectrum antibiotics including Zosyn and discharged on Levaquin. Blood cultures cleared prior to discharge. Presents for ongoing oncologic management. Interim history: No complaints today. He uses a cane when walking around the retirement. He is not having shortness of breath while doing that and he does not feel that his energy level is significantly compromised. No acute illnesses since last seen. His appetite is fair. He eats smaller portions throughout the day. Constipation that comes and goes. No unusual or nuisance bleeding. No unexplained bruising. 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; Confirmed Blk below His by His Bundle Electrogram Chronic atrial fibrillation (HCC) Chronic heart failure with preserved ejection fraction ([facility]) 07/29/2024 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 2017 when he's been off medication Nocturnal hypoxemia On oxygen at night Osteoarthritis, generalized Pacemaker 09/17/2022 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 Vitamin D deficiency 07/11/2020 PAST SURGICAL HISTORY Procedure Laterality Date ANKLE RIGHT OP SURGERY Right 12/18/2020 Dr Arreola [facility] ARTHROPLASTY TOTAL SHOULDER 11/09/2008 right ARTHROSCOPY OF JOINT UNLISTED 1999 Elbow right CABG (4) VEIN GRAFTS & ARTERIAL GRAFT(S) 07/21/2021 In [facility] COLONOSCOPY FLX DX W/COLLJ SPEC WHEN PFRMD 09/01/2005 Colonoscopy COLONOSCOPY FLX DX W/COLLJ SPEC WHEN PFRMD 09/27/2015 Colonoscopy REMOVAL OF TONSILS,<12 Y/O S $ DUAL CHMBR PACER [id number] Left 09/17/2022 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 ALLERGIES Allergen Reactions Simvastatin Other: See Comments Elevated CK Current Outpatient Medications Medication Sig cholecalciferol (VITAMIN D3) 1,000 unit tab tablet Take by mouth once daily. levothyroxine (SYNTHROID) 100 mcg tablet Take 1 tablet by mouth once daily. Take on empty stomach folic acid 1 mg tablet Take 1 tablet by mouth once daily. atorvastatin (LIPITOR) 20 mg tablet Take 1 tablet by mouth once daily. furosemide (LASIX) 40 mg tablet Take 0.5 tablets by mouth two times a day. AM and noon. ADULT LOW DOSE ASPIRIN ORAL Take 81 mg by mouth once daily. rivaroxaban (XARELTO) 20 mg tablet Take 1 tablet by mouth daily with dinner. Resume Sep 20 2022 cyanocobalamin (VITAMIN B-12) 1,000 mcg tab Take 1,000 mcg by mouth once daily. polyethylene glycol 3350 (MIRALAX, GLYCOLAX) 17 gram packet Take 17 g by mouth once daily as needed for constipation. Dissolve dose in 4 - 8 ounces of liquid and take as directed. MULTIVITAMIN TABLET Take 1 tablet by mouth once daily. rivaroxaban (XARELTO) 20 mg tablet Take 1 tablet by mouth daily with dinner for 14 days. nitroglycerin sublingual (NITROQUICK) 0.4 mg SL tablet nitroglycerin 0.4 mg sublingual tablet No current facility-administered medications for this visit. Social History Tobacco Use Smoking status: Former Current packs/day: 0.00 Types: Cigarettes Quit date: 08/11/1989 Years since quittin.1 Passive exposure: Past Smokeless tobacco: Never Tobacco comments: quit 18-19 years ago Vaping Use Vaping status: Never Used Substance Use Topics Alcohol use: Yes Alcohol/week: 3.0 standard drinks of alcohol Types: 3 Glasses of wine per week Comment: occ Drug use: No Family History Problem Relation Age of Onset Heart Mother Heart Father CHF Colon Cancer No Family History Prostate Cancer No Family History Blood Clots No Family History NO PE OR DVT ROS: Constitutional: Denies episodes of fever and night sweats. Neuro: Denies TRACEY, vertigo, dizziness. Denies symptoms of neuropathy. HEENT: No recent change in voice, vision or hearing. Resp: Denies cough, wheeze and hemoptysis. Denies shortness of breath at rest. CVS: Denies exertional chest pain, PND and orthopnea. Uses b/l compression stockings. GI: Denies dysphagia and odynophagia. Denies reflux, n/v. : Denies dysuria or gross hematuria. Endo: Denies hot flashes. Denies polyuria and polydipsia. Denies heat and cold intolerance. Musculoskeletal: Lower back pain when walking--stable. Derm: Denies rash. Denies jaundice and diffuse pruritis. Heme: See HPI. Psych: Normal mood. PHYSICAL EXAM: Vitals: Blood pressure 102/63, pulse 79, temperature 36.9 C (98.5 F), weight 79.4 kg (175 lb), SpO2 92%. Well-appearing and in no acute distress. EYES: Sclerae are anicteric bilaterally. RESPIRATORY: Inspiratory breath sounds are of normal intensity in all manning. No rales, wheezes or rhonchi. CARDIOVASCULAR: Rhythm is regular on today's exam. ABDOMEN: The abdomen is nondistended Extremities: Mild chronic swelling. Has compression stockings on. SKIN: No jaundice. 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 -Treatment originally complicated by right IJ thrombus despite being on rivaroxaban and Gram negative sepsis from LE cellulitis. -His anemia overall has been stable last 3 months although it has gone under 10 g/dL. We again discussed the pros and cons of supportive care with ABRAHAM therapy. He does not seem to be significantly symptomatic from the anemia and therefore we decided to continue monitoring. He is agreeable to start ABRAHAM therapy if hemoglobin goes below 9 g/dL consistently. Plan: -Monthly CBC/possible transfusion. -Recheck serum erythropoietin next month. -Srart Aranesp if Hgb < 9.0 g/dL. -Okay to continue ASA and rivaroxaban. -OV/CBC/CMP/iron studies/erythropoietin/B12/MMA/ serum folate in about 3 months. Portions of this documentation were copied and pasted from my previous office visit note dated 06/16/2024 in order to provide a cohesive continuity of the history. The note has been reviewed and edited and updated as necessary. Baljinder Galloway DO documented in this encounter [facility] 10-11-2024 Nurse Note Est. Pt. 1 month F/U discuss recent lab results. Shanice Green LPN [facility] 10-11-2024 Nurse Note Est. Pt. 1 month F/U discuss recent lab results. Shanice Green LPN documented in this encounter [facility] 10-10-2024 Telephone encounter Note Pt's daughter notified. [facility] 10-10-2024 Miscellaneous Notes Pt's daughter notified. Patient's request for medication is as follows Requested Prescriptions Signed Prescriptions Disp Refills rivaroxaban (XARELTO) 20 mg tablet 14 tablet 0 Sig: Take 1 tablet by mouth daily with dinner for 14 days. Authorizing Provider: RONALDO PLEITEZ Order entered - please phone pharmacy and notify patient. Ronaldo Pleitez MD Patient called due to he is out of medication. I made a copy of the prescription and attached to the correct local pharmacy. The patient is very upset that this has not been sent, and stated someone should have completed this immediately this morning. He confirmed that he is still waiting for the mail order to send. Please send today. Please call patient once submitted. Please advise patient when provider sends this urgent RX [phone] 2 week supply pended to be sent to [facility]. Tara Trujillo MA Patient's daughter is calling Ronaldo Pleitez MD today to request short term medication request for rivaroxaban (XARELTO) 20 mg tablet. Daughter states that medication is to be sent mail order, but the medication will not get there on time. DaughterLiza is asking to have the prescription sent to [facility]. Patient has been identified by name and birthdate. Duration of symptoms: N/A If any issues please return call to Liza [phone] Was an appointment scheduled: No Closing statement: Results or non-symptom based questions: Thank you for calling [facility], your call will be returned within the next business day. Natalie Bernardo documented in this encounter [facility] 10-10-2024 Telephone encounter Note Patient's request for medication is as follows Requested Prescriptions Signed Prescriptions Disp Refills rivaroxaban (XARELTO) 20 mg tablet 14 tablet 0 Sig: Take 1 tablet by mouth daily with dinner for 14 days. Authorizing Provider: RONALDO PLEITEZ Order entered - please phone pharmacy and notify patient. Ronaldo Pleitez MD [facility] 10-10-2024 Telephone encounter Note Patient called due to he is out of medication. I made a copy of the prescription and attached to the correct local pharmacy. The patient is very upset that this has not been sent, and stated someone should have completed this immediately this morning. He confirmed that he is still waiting for the mail order to send. Please send today. Please call patient once submitted. [facility] 10-10-2024 Telephone encounter Note Please advise patient when provider sends this urgent RX [phone] [facility] 10-10-2024 Telephone encounter Note 2 week supply pended to be sent to [facility]. Tara Trujillo MA [facility] 10-10-2024 Telephone encounter Note Patient's daughter is calling Ronaldo Pleitez MD today to request short term medication request for rivaroxaban (XARELTO) 20 mg tablet. Daughter states that medication is to be sent mail order, but the medication will not get there on time. Daughter, Liza is asking to have the prescription sent to [facility]. Patient has been identified by name and birthdate. Duration of symptoms: N/A If any issues please return call to Liza [phone] Was an appointment scheduled: No Closing statement: Results or non-symptom based questions: Thank you for calling [facility], your call will be returned within the next business day. Natalie Bernardo [facility] 10-03-2024 Note [facility] 10-03-2024 History of Presen t illness Narrative CDM Telephonic Outreach Provider Vinnie/GILBERTO CHF Assisted living staff assist with meals, medications, wts, and BPs Spoke with the patient who reports that he is feeling well and has no needs at this time. Appointments for Next 60 Days Date Time Provider Location Dept Phone 10/11/2024 10:00 AM LAB [facility] Marva Borja [phone] 10/11/2024 10:30 AM BALJINDER GALLOWAY [phone] Contacted for: Routine Telephonic Outreach Contact made with patient: Yes Patient identified by name and date of . Discussed care with patient Are you experiencing any new or worsening symptoms you need to talk about today? No Disease Specific Do you check your blood pressure at home? No Do you have new or worsening shortness of breath with activity? No Do you have new or worsening trouble breathing while lying flat? No Do you have new or worsening swelling of legs, feet or ankles? No Do you check your daily weight at home? Yes, Have you noticed a sudden gain in weight greater than three pounds in a day or three pounds in a week? No Based on treating engineer helper, the following disposition is advised: No symptoms or symptoms present, not severe. Routed to: No Action Needed MARCELO Education Provided this Outreach: No Ginna Em RN October 03, 2024 10:57 AM documented in this encounter [facility] 09-30-2024 Telephone encounter Note Spoke with Zaria at [facility]. Patients Stress Test is scheduled for 6:45 am at [facility] on 10/12/24. Left message to call back for instructions. Order was faxed ([phone]) to [facility]. [facility] 09-30-2024 Miscellaneous Notes Spoke with Zaria at [facility]. Patients Stress Test is scheduled for 6:45 am at [facility] on 10/12/24. Left message to call back for instructions. Order was faxed ([phone]) to [facility]. Apparently the patient does not need a peer to peer, the reference number is the approval number for the stress test. It is good from 09-27-2024-12/25/2024. Ref #[id number] Patient needs a Peer to Peer for his Stress Test. The number is [phone]. documented in this encounter [facility] 09-30-2024 Telephone encounter Note Apparently the patient does not need a peer to peer, the reference number is the approval number for the stress test. It is good from 09-27-2024-12/25/2024. [facility] 09-27-2024 Telephone encounter Note Ref #[id number] Patient needs a Peer to Peer for his Stress Test. The number is [phone]. [facility] 09-27-2024 History of Presen t illness Narrative [facility] Ronaldo Pleitez MD SUBJECTIVE: Srini Luis is a 88 year old male who is here today for a follow-up visit. The patient is doing reasonably well from a cardiovascular standpoint. He has intermittent shortness of breath. It does not always have to relate to activity. It is not severe. He has had some lower extremity but is improved since he has been wearing his compression socks. He has not had chest pain, palpitations, PND, orthopnea, syncope, or near syncope. 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; Confirmed Blk below His by His Bundle Electrogram Chronic atrial fibrillation ([facility]) Chronic heart failure with preserved ejection fraction ([facility]) 07/29/2024 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 2017 when he's been off medication Nocturnal hypoxemia On oxygen at night Osteoarthritis, generalized Pacemaker 09/17/2022 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 Vitamin D deficiency 07/11/2020 PAST SURGICAL HISTORY Procedure Laterality Date ANKLE RIGHT OP SURGERY Right 12/18/2020 Dr Arreola [facility] ARTHROPLASTY TOTAL SHOULDER 11/09/2008 right ARTHROSCOPY OF JOINT UNLISTED 2000 [place] right CABG (4) VEIN GRAFTS & ARTERIAL GRAFT(S) 07/21/2021 In [facility] [place] COLONOSCOPY FLX DX W/COLLJ SPEC WHEN PFRMD 09/01/2005 Colonoscopy COLONOSCOPY FLX DX W/COLLJ SPEC WHEN PFRMD 09/27/2015 Colonoscopy REMOVAL OF TONSILS,<12 Y/O S $ DUAL CHMBR PACER [id number] Left 09/17/2022 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 FAMILY HISTORY Problem Relation Age of Onset Heart Mother Heart Father CHF Colon Cancer No Family History Prostate Cancer No Family History Blood Clots No Family History NO PE OR DVT SOCIAL HISTORY: Social History Tobacco Use Smoking status: Former Current packs/day: 0.00 Types: Cigarettes Quit date: 08/11/1989 Years since quittin.1 Passive exposure: Past Smokeless tobacco: Never Tobacco comments: quit 18-19 years ago Vaping Use Vaping status: Never Used Substance Use Topics Alcohol use: Yes Alcohol/week: 3.0 standard drinks of alcohol Types: 3 Glasses of wine per week Comment: occ Drug use: No ALLERGIES: Simvastatin CURRENT MEDICATIONS: Current Outpatient Medications Medication Sig cholecalciferol (VITAMIN D3) 1,000 unit tab tablet Take by mouth once daily. levothyroxine (SYNTHROID) 100 mcg tablet Take 1 tablet by mouth once daily. Take on empty stomach folic acid 1 mg tablet Take 1 tablet by mouth once daily. atorvastatin (LIPITOR) 20 mg tablet Take 1 tablet by mouth once daily. furosemide (LASIX) 40 mg tablet Take 0.5 tablets by mouth two times a day. AM and noon. ADULT LOW DOSE ASPIRIN ORAL Take 81 mg by mouth once daily. rivaroxaban (XARELTO) 20 mg tablet Take 1 tablet by mouth daily with dinner. Resume Sep 20 2022 nitroglycerin sublingual (NITROQUICK) 0.4 mg SL tablet nitroglycerin 0.4 mg sublingual tablet cyanocobalamin (VITAMIN B-12) 1,000 mcg tab Take 1,000 mcg by mouth once daily. polyethylene glycol 3350 (MIRALAX, GLYCOLAX) 17 gram packet Take 17 g by mouth once daily as needed for constipation. Dissolve dose in 4 - 8 ounces of liquid and take as directed. MULTIVITAMIN TABLET Take 1 tablet by mouth once daily. No current facility-administered medications for this visit. Review of Systems Constitutional: Negative for activity change and fever. Respiratory: Positive for shortness of breath. Negative for apnea, cough, chest tightness, wheezing and stridor. Cardiovascular: Negative for chest pain, palpitations and leg swelling. Gastrointestinal: Negative for abdominal distention, diarrhea and vomiting. Musculoskeletal: Negative for joint swelling, neck pain and neck stiffness. Skin: Negative for color change, pallor and rash. Neurological: Negative for dizziness, syncope, weakness, light-headedness and numbness. Hematological: Does not bruise/bleed easily. Psychiatric/Behavioral: Negative for agitation, behavioral problems and confusion. The patient is not nervous/anxious. All other systems reviewed and are negative. PHYSICAL EXAMINATION: 09/27/24 1102 BP: 116/58 BP Site: Right Arm BP Position: Sitting Pulse: 62 Weight: 78 kg (172 lb) Height: 170.2 cm (5' 7) Last 3 Encounter BP Readings: Date: BP: 09/15/2024 109/70 07/29/2024 118/70 06/16/2024 102/55 Last 3 Encounter Pulse Readings: Date: Pulse: 09/15/2024 77 07/29/2024 80 06/16/2024 81 Last 3 Encounter Wt Readings: Date: Wt: 09/15/2024 78 kg (172 lb) 07/29/2024 77.7 kg (171 lb 4.8 oz) 06/16/2024 78.5 kg (173 lb) Potassium Date Value 09/15/2024 4.4 mmol/L 09/20/2021 4.5 MMOL/L Sodium Date Value 09/15/2024 136 mmol/L 09/20/2021 138 MMOL/L Magnesium (mg/dL) Date Value 09/18/2022 2.2 Creatinine Date Value 09/15/2024 1.02 mg/dL 09/20/2021 0.90 MG/DL BUN Date Value 09/15/2024 24 mg/dL 09/20/2021 25 MG/DL Glucose Date Value 09/15/2024 94 mg/dL 09/20/2021 102 MG/DL PT INR (no units) Date Value 09/02/2021 1.5 (EXT) INR (no units) Date Value 10/24/2022 1.3 TSH Date Value 02/18/2024 0.135 mIU/L 06/09/2019 3.480 uU/mL NT Pro BNP (pg/mL) Date Value 08/06/2023 5,282 Physical Exam Vitals and nursing note reviewed. Constitutional: General: He is not in acute distress. Appearance: Normal appearance. He is not toxic-appearing. HENT: Head: Normocephalic and atraumatic. Nose: Nose normal. Mouth/Throat: Mouth: Mucous membranes are moist. Neck: Vascular: No carotid bruit. Cardiovascular: Rate and Rhythm: Normal rate and regular rhythm. Pulses: Normal pulses. Heart sounds: Murmur heard. No friction rub. No gallop. Pulmonary: Effort: Pulmonary effort is normal. No respiratory distress. Breath sounds: Normal breath sounds. No stridor. No wheezing, rhonchi or rales. Chest: Chest wall: No tenderness. Abdominal: General: Abdomen is flat. There is no distension. Palpations: Abdomen is soft. There is no mass. Tenderness: There is no abdominal tenderness. Musculoskeletal: General: No swelling. Cervical back: Normal range of motion. No muscular tenderness. Right lower leg: Edema present. Left lower leg: Edema present. Comments: Trace-1+ bilateral lower extremity edema Skin: General: Skin is warm and dry. Capillary Refill: Capillary refill takes less than 2 seconds. Coloration: Skin is not jaundiced or pale. Findings: No bruising or rash. Neurological: General: No focal deficit present. Mental Status: He is alert and oriented to person, place, and time. Mental status is at baseline. Motor: No weakness. Gait: Gait normal. Psychiatric: Mood and Affect: Mood normal. Behavior: Behavior normal. Diagnostic results: Pacemaker check: Summary: Normal device function. Normal pacing and sensing threshold. Battery: 13 yrs 6 months until [place]. Histogram: ok. Atrial episodes: n/a. Ventricular episodes: 1 high ventricular rates, 4 seconds. Changes: none. ASSESSMENT/PLAN: 1. Benign hypertension - ICD9: 401.1, ICD10: I10 (primary diagnosis) Target BP 130/80 or less. The pt is on chronic medications. Blood pressure controlled on current medications. 2. 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 - ICD9: 414.01, ICD10: I25.10 Four-vessel CABG in 2020. Patient is on chronic medication. He is not complaining of chest pain. We will have the patient get a nuclear stress test for preventative measures and to evaluate possible cause for shortness of breath. 3. Mixed hyperlipidemia - ICD9: 272.2, ICD10: E78.2 Patient is on atorvastatin 20 mg daily. Managed by primary care physician. 4. Pacemaker - ICD9: V45.01, ICD10: Z95.0 The patient has a dual-chamber pacemaker. Set VVI second to chronic A-fib. Normal function by today's interrogation. We will plan to monitor the device by every 3-month checks and as needed. 5. CHB (complete heart block) (HCC) - ICD9: 426.0, ICD10: I44.2 Chronic, the patient has a dual-chamber pacemaker. Set VVI second to chronic A-fib. Stable. 6. Chronic atrial fibrillation (HCC) - ICD9: 427.31, ICD10: I48.20 Chronic, asymptomatic atrial fibrillation. Heart rate control and anticoagulation strategy. Heart rate controlled by virtue of AV node dysfunction. Patient on Xarelto. 7. 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 The pt is not complaining of any signs and symptoms of bleeding. The patient was instructed to call with any problems. documented in this encounter [facility] 09-27-2024 Note HNO ID: [id number] Author: IRAM JOHNSON APRN.[employer] SALES REPRESENTATIVE Service: ? Author Type: Nurse Practitioner Type: Progress Notes Filed: 09/27/2024 11:13 Note Text: [facility] Ronaldo Pleitez MD SUBJECTIVE: Srini Luis is a 88 year old male who is here today for a follow-up visit. The patient is doing reasonably well from a cardiovascular standpoint. He has intermittent shortness of breath. It does not always have to relate to activity. It is not severe. He has had some lower extremity but is improved since he has been wearing his compression socks. He has not had chest pain, palpitations, PND, orthopnea, syncope, or near syncope. 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; Confirmed Blk below His by His Bundle Electrogram Chronic atrial fibrillation ([facility]) Chronic heart failure with preserved ejection fraction ([facility]) 07/29/2024 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 2017 when he's been off medication Nocturnal hypoxemia On oxygen at night Osteoarthritis, generalized Pacemaker 09/17/2022 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 Vitamin D deficiency 07/11/2020 PAST SURGICAL HISTORY Procedure Laterality Date ANKLE RIGHT OP SURGERY Right 12/18/2020 Dr Arreola [facility] ARTHROPLASTY TOTAL SHOULDER 11/09/2008 right ARTHROSCOPY OF JOINT UNLISTED 2000 [place] right CABG (4) VEIN GRAFTS AND ARTERIAL GRAFT(S) 07/21/2021 In [facility] [place] COLONOSCOPY FLX DX W/COLLJ SPEC WHEN PFRMD 09/01/2005 Colonoscopy COLONOSCOPY FLX DX W/COLLJ SPEC WHEN PFRMD 09/27/2015 Colonoscopy REMOVAL OF TONSILS,<12 Y/O S $ DUAL CHMBR PACER [id number] Left 09/17/2022 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 FAMILY HISTORY Problem Relation Age of Onset Heart Mother Heart Father CHF Colon Cancer No Family History Prostate Cancer No Family History Blood Clots No Family History NO PE OR DVT SOCIAL HISTORY: Social History Tobacco Use Smoking status: Former Current packs/day: 0.00 Types: Cigarettes Quit date: 08/11/1989 Years since quittin.1 Passive exposure: Past Smokeless tobacco: Never Tobacco comments: quit 18-19 years ago Vaping Use Vaping status: Never Used Substance Use Topics Alcohol use: Yes Alcohol/week: 3.0 standard drinks of alcohol Types: 3 Glasses of wine per week Comment: occ Drug use: No ALLERGIES: Simvastatin CURRENT MEDICATIONS: Current Outpatient Medications Medication Sig cholecalciferol (VITAMIN D3) 1,000 unit tab tablet Take by mouth once daily. levothyroxine (SYNTHROID) 100 mcg tablet Take 1 tablet by mouth once daily. Take on empty stomach folic acid 1 mg tablet Take 1 tablet by mouth once daily. atorvastatin (LIPITOR) 20 mg tablet Take 1 tablet by mouth once daily. furosemide (LASIX) 40 mg tablet Take 0.5 tablets by mouth two times a day. AM and noon. ADULT LOW DOSE ASPIRIN ORAL Take 81 mg by mouth once daily. rivaroxaban (XARELTO) 20 mg tablet Take 1 tablet by mouth daily with dinner. Resume Sep 20 2022 nitroglycerin sublingual (NITROQUICK) 0.4 mg SL tablet nitroglycerin 0.4 mg sublingual tablet cyanocobalamin (VITAMIN B-12) 1,000 mcg tab Take 1,000 mcg by mouth once daily. polyethylene glycol 3350 (MIRALAX, GLYCOLAX) 17 gram packet Take 17 g by mouth once daily as needed for constipation. Dissolve dose in 4 - 8 ounces of liquid and take as directed. MULTIVITAMIN TABLET Take 1 tablet by mouth once daily. No current facility-ad (more content not included)... [facility] 09-27-2024 Note HNO ID: [id number] Author: ISRAEL MINOR MD Service: ? Author Type: Physician Type: Progress Notes Filed: 10/06/2024 17:16 Note Text: Dual Pacer Report In Office Check Date: September 27, 2024 Time: 10:32 AM Devices: Implants Lead Ra Lead HealthRallyroniPhotetica-09/17/2022 - Implanted Heart Model/Cat number: ADAIR [id number] Serial number: [id number] Indigo Mixer: EnerTrac Lot number: LEFT AXILLARY VEIN Size: Right Atrial Pacing Lead Rv Lead BiotroniPhotetica-09/17/2022 - Implanted Heart Model/Cat number: ADAIR Pena [id number] Serial number: [id number] Indigo Mixer: WeVorceRONISidense Lot number: LEFT CEPHALIC VEIN Size: Right Ventricular Pacing Lead Pacemaker Dual Pacer Biotronik-09/17/2022 - Implanted (Left) Chest Wall Model/Cat number: GUY Wood [id number] Serial number: [id number] Indigo Mixer: BIOTRONISidense Lot number: INITIAL DUAL PACER IMPLANT. 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; LVEF 68%; 4V Cabg 07/22/2021; TIMMY Ligation, Post Cabg Afib; Xarelto; Symptoms: None Underlying Rhythm: Chronic AFIB Last Interrogation Date: 02-29-2024 Estimated Remaining Longevity: 13 yrs 6 months until [place] Dependency: No Interrogation Performed by: Stephany Abraham LPN Programming Parameters Mode: VVI Lower Rate: 60 Upper Track: N/a Upper Sensor: N/a Paced AV Delay: N/a Sensed AV Delay: N/a Atrial Refractory: N/a Mode Switch: N/a Atrial: off Right Ventricle: Threshold: 0.7 V @ 0.2 msec Programmed amp/PW: 1.0 V @ 0.75 msec R wave: 11.2 mV Sensitivity: auto Impedance: 409 ohms RV pacin% Episodes: Atrial Fib count: Chronic AFIB Atrial burden: 100% Mode Switch episodes: 0 Ventricular Fibrillation count: 0 Fast Ventricular Tachycardia count: 0 Slow Ventricular Tachycardia: 0 NSVT: 0 High Ventricular Rates: 1 Summary: Normal device function. Normal pacing and sensing threshold. Battery: 13 yrs 6 months until [place]. Histogram: ok. Atrial episodes: n/a. Ventricular episodes: 1 high ventricular rates, 4 seconds. Changes: none. Follow up: 3 month remote, 6 months device check and provider appointment. View External Cardiology - Commercial Loan Manager Strips [ID [id number]] [facility] 09-27-2024 History of Presen t illness Narrative Dual Pacer Report In Office Check Date: September 27, 2024 Time: 10:32 AM Devices: Implants Lead Ra Lead Biotronik-09/17/2022 - Implanted Heart Model/Cat number: ADAIR Pena [id number] Serial number: [id number] Indigo Mixer: WeVorceRONISidense Lot number: LEFT AXILLARY VEIN Size: Right Atrial Pacing Lead Rv Lead Biotronik-09/17/2022 - Implanted Heart Model/Cat number: ADAIR Pena [id number] Serial number: [id number] Indigo Mixer: WeVorceRONISidense Lot number: LEFT CEPHALIC VEIN Size: Right Ventricular Pacing Lead Pacemaker Dual Pacer Biotronik-09/17/2022 - Implanted (Left) Chest Wall Model/Cat number: EDORA [id number] [id number] Serial number: [id number] Indigo Mixer: EnerTrac Lot number: INITIAL DUAL PACER IMPLANT. 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; LVEF 68%; 4V Cabg 07/22/2021; TIMMY Ligation, Post Cabg Afib; Xarelto; Symptoms: None Underlying Rhythm: Chronic AFIB Last Interrogation Date: 02-29-2024 Estimated Remaining Longevity: 13 yrs 6 months until [place] Dependency: No Interrogation Performed by: Stephany Abraham LPN Programming Parameters Mode: VVI Lower Rate: 60 Upper Track: N/a Upper Sensor: N/a Paced AV Delay: N/a Sensed AV Delay: N/a Atrial Refractory: N/a Mode Switch: N/a Atrial: off Right Ventricle: Threshold: 0.7 V @ 0.2 msec Programmed amp/PW: 1.0 V @ 0.75 msec R wave: 11.2 mV Sensitivity: auto Impedance: 409 ohms RV pacin% Episodes: Atrial Fib count: Chronic AFIB Atrial burden: 100% Mode Switch episodes: 0 Ventricular Fibrillation count: 0 Fast Ventricular Tachycardia count: 0 Slow Ventricular Tachycardia: 0 NSVT: 0 High Ventricular Rates: 1 Summary: Normal device function. Normal pacing and sensing threshold. Battery: 13 yrs 6 months until [place]. Histogram: ok. Atrial episodes: n/a. Ventricular episodes: 1 high ventricular rates, 4 seconds. Changes: none. Follow up: 3 month remote, 6 months device check and provider appointment. View External Cardiology - Commercial Loan Manager Strips [ID [id number]] documented in this encounter [facility] 09-15-2024 Telephone encounter Note Scheduled as directed. Mary Ann Samayoa [facility] 09-15-2024 Miscellaneous Notes Scheduled as directed. Mary Ann Samayoa Spoke with pt. Informed he needed to come in next week for CBC poss tx. PSS please put on lab schedule for CBC poss tx 09/22@ 10 am. Shanice Green LPN Recheck CBC possible transfusion 1 week. documented in this encounter [facility] 09-15-2024 Telephone encounter Note Spoke with pt. Informed he needed to come in next week for CBC poss tx. PSS please put on lab schedule for CBC poss tx 09/22@ 10 am. Shanice Green LPN [facility] 09-15-2024 Telephone encounter Note Recheck CBC possible transfusion 1 week. [facility] 09-15-2024 Note [facility] 09-15-2024 History of Presen t illness Narrative Diagnosis: 1) CMML. HPI: The patient is an 88-year-old male with a past medical history significant for coronary artery disease (four-vessel CABG), stroke, paroxysmal atrial fibrillation, hypertension, hypothyroidism, heart block (PPM) who underwent a work-up for macrocytic anemia. Patient had a history of B12 deficiency associated with macrocytic anemia. However he had become progressively more anemic and was seen by Dr. Rowell and underwent bone marrow biopsy in 10/2022. Cytogenetics (see separate report) revealed a normal male karyotype: 46,XY[20]. The myeloid NGS panel (see separate report) identified the following variants (with VAFs): SF3B1 p.H662Q (41.7%) and TET2 p.[id number]*6 (46%). 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 The threshold for absolute monocytosis in CMML has since been lowered to 0.5 k/uL (from 1.0 k/uL in the 2016 WHO), which accounts for the discrepancy. Further, the category of CMML-0 (which this neoplasm would have otherwise been classified as) has been eliminated by both classification systems in lieu of a two-tiered blast-based grading scheme (of CMML-1 and -2 only). The patient had a single CBC since 2019 (specifically 08/24/2022) in which there was not a relative monocytosis; this is attributable to transiently increased neutrophils in the setting of acute stroke/ischemia, and is here regarded as an outlier. Normal cytogenetics. Moved from [place] to assisted living at [facility]. Established care here. Drives. Current therapy: 1) Azacitidine. Cycle 10/14/2023. Most recent cycle 05/2023. He was also diagnosed with acute DVT of the internal jugular vein on the right. This occurred despite anticoagulation with rivaroxaban. Port was removed. He was admitted to [facility] 05/15 through 05/18 for gram-negative bacteremia attributed to right lower extremity cellulitis. He was initially treated with IV broad-spectrum antibiotics including Zosyn and discharged on Levaquin. Blood cultures cleared prior to discharge. Presents for ongoing oncologic management. Interim history: No complaints today. No acute illnesses since last seen.Presents today with his daughter. Denies new issues. Denies new aches or pains. No SOB, CP, or palpitations. No TRACEY, dizziness, or changes in vision. Denies N/V/C/D. No changes in bowel or bladder habits. No rash or skin changes. Denies bleeding or bruising. 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 2017 when he's been off medication Nocturnal hypoxemia On oxygen at night Osteoarthritis, generalized Pacemaker 09/17/2022 Dual Pacer (Biotronik) for High Grade AV Blk below His; LVEF 68%; 4V Cabg 07/22/2021; TIMMY Ligation, Post Cabg Afib; Xarelto; by Dr aMtt Flannery. 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 Vitamin D deficiency 07/11/2020 PAST SURGICAL HISTORY Procedure Laterality Date ANKLE RIGHT OP SURGERY Right 12/18/2020 Dr Arreola [facility] ARTHROPLASTY TOTAL SHOULDER 11/09/2008 right ARTHROSCOPY OF JOINT UNLISTED 2000 [place] right CABG (4) VEIN GRAFTS & ARTERIAL GRAFT(S) 07/21/2021 In [facility] [place] COLONOSCOPY FLX DX W/COLLJ SPEC WHEN PFRMD 09/01/2005 Colonoscopy COLONOSCOPY FLX DX W/COLLJ SPEC WHEN PFRMD 09/27/2015 Colonoscopy REMOVAL OF TONSILS,<12 Y/O S $ DUAL CHMBR PACER [id number] Left 09/17/2022 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 ALLERGIES Allergen Reactions Simvastatin Other: See Comments Elevated CK Current Outpatient Medications Medication Sig SENNOSIDES-DOCUSATE SODIUM ORAL Take by mouth as needed (constipation). cholecalciferol (VITAMIN D3) 1,000 unit tab tablet Take by mouth once daily. levothyroxine (SYNTHROID) 100 mcg tablet Take 1 tablet by mouth once daily. Take on empty stomach folic acid 1 mg tablet Take 1 tablet by mouth once daily. atorvastatin (LIPITOR) 20 mg tablet Take 1 tablet by mouth once daily. furosemide (LASIX) 40 mg tablet Take 0.5 tablets by mouth two times a day. AM and noon. ADULT LOW DOSE ASPIRIN ORAL Take 81 mg by mouth once daily. rivaroxaban (XARELTO) 20 mg tablet Take 1 tablet by mouth daily with dinner. Resume Sep 20 2022 nitroglycerin sublingual (NITROQUICK) 0.4 mg SL tablet nitroglycerin 0.4 mg sublingual tablet cyanocobalamin (VITAMIN B-12) 1,000 mcg tab Take 1,000 mcg by mouth once daily. polyethylene glycol 3350 (MIRALAX, GLYCOLAX) 17 gram packet Take 17 g by mouth once daily as needed for constipation. Dissolve dose in 4 - 8 ounces of liquid and take as directed. MULTIVITAMIN TABLET Take 1 tablet by mouth once daily. No current facility-administered medications for this visit. Social History Tobacco Use Smoking status: Former Current packs/day: 0.00 Types: Cigarettes Quit date: 08/11/1989 Years since quittin.1 Smokeless tobacco: Never Tobacco comments: quit 18-19 years ago Vaping Use Vaping status: Never Used Substance Use Topics Alcohol use: Yes Alcohol/week: 3.0 standard drinks of alcohol Types: 3 Glasses of wine per week Comment: occ Drug use: No Family History Problem Relation Age of Onset Heart Mother Heart Father CHF Colon Cancer No Family History Prostate Cancer No Family History Blood Clots No Family History NO PE OR DVT ROS: Constitutional: Denies episodes of fever and night sweats. All systems reviewed on 09/15/2024 with pertinent positives and negatives as outlined in the interval history. PHYSICAL EXAM: Vitals: Blood pressure 109/70, pulse 77, temperature 36.8 C (98.2 F), temperature source Temporal, weight 78 kg (172 lb), SpO2 94%. Well-appearing and in no acute distress. EYES: Sclerae are anicteric bilaterally. RESPIRATORY: Inspiratory breath sounds are of normal intensity in all manning. No rales, wheezes or rhonchi. CARDIOVASCULAR: Rhythm is regular on today's exam. ABDOMEN: The abdomen is nondistended Extremities: Mild chronic swelling. Has compression stockings on. SKIN: No jaundice. I have performed the physical exam today (09/15/2024) and have edited the note to correlate with current findings. 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 -Treatment complicated by right IJ thrombus despite being on rivaroxaban and Gram negative sepsis from LE cellulitis. -Consider ABRAHAM if Hg drifts lower. However pt expressed that he does not want anymore shots in his belly. -Reviewed labs. Worsening anemia, although has fluctuated in the past. No thrombocytopenia. Asymptomatic Plan: -Recheck CBC in about a month. May start Aranesp at that time if iron okay and Hgb <10 g/dL. Reviewed today with patient and daughter -Okay to continue ASA and rivaroxaban. -Follow up on iron from today. Lauri Cook APRN.[employer] SALES REPRESENTATIVE I spent a total of 30 minutes on the date of the service which included preparing to see the patient, [id number] patient care, completing clinical documentation, performing a medically appropriate examination, and counseling and educating the patient/family/caregiver. Portions of this note including HPI, ROS, impression/plan may have been copied forward as to provide important historical information essential in contributing to medical decision making. Documentation has been reviewed and edited as necessary to support clinical decision making for today's visit and to reflect my own independent evaluation of this patient. documented in this encounter [facility] 08-30-2024 Note [facility] 08-30-2024 History of Presen t illness Narrative CDM Telephonic Outreach Provider Action/FYI CHF Assisted living staff assist with meals, medications, wts, and BPs Spoke with the patient who is feeling well and has no needs at this time. Reviewed upcoming appts, and I will make my next call after cardiology appointment. Appointments for Next 60 Days Date Time Provider Location Dept Phone 09/15/2024 11:15 AM LAB [facility] [place] [phone] 09/15/2024 11:30 AM BALJINDER GALLOWAY [phone] 09/27/2024 10:30 AM [facility] [address] [facility] [phone] 09/27/2024 11:00 AM IRAM JOHNSON [facility] [phone] Contacted for: Routine Telephonic Outreach Contact made with patient: Yes Patient identified by name and date of . Discussed care with patient Are you experiencing any new or worsening symptoms you need to talk about today? No Disease Specific Do you check your blood pressure at home? No Do you have new or worsening shortness of breath with activity? No Do you have new or worsening trouble breathing while lying flat? No Do you have new or worsening swelling of legs, feet or ankles? No Do you check your daily weight at home? Yes, Have you noticed a sudden gain in weight greater than three pounds in a day or three pounds in a week? No Based on treating engineer helper, the following disposition is advised: No symptoms or symptoms present, not severe. Routed to: No Action Needed MARCELO Education Provided this Outreach: No Ginna Em RN August 30, 2024 2:00 PM documented in this encounter [facility] 08-25-2024 Telephone encounter Note Alexandra with [facility] called and is notified of providers message and instructions. She voices understanding. Rachelle Vasquez RN [facility] 08-25-2024 Miscellaneous Notes Alexandra with [facility] called and is notified of providers message and instructions. She voices understanding. Rachelle Vasquez RN Warm soaks right upper eye lid 15 minutes 4 times a day x 5 days. Carina with [facility] calls to report last evening patient was noted to have some swelling and redness to upper right eye lid approximately 0.3 cm in diameter. Continues today. She reports no drainage, itch, pain, or redness to the sclera, or fever. She says it appears to be a stye. Asking if provider wants anything done. Requests call back at [phone]. Julieta Reed RN documented in this encounter [facility] 08-25-2024 Telephone encounter Note Warm soaks right upper eye lid 15 minutes 4 times a day x 5 days. [facility] 08-24-2024 Telephone encounter Note Carina with [facility] calls to report last evening patient was noted to have some swelling and redness to upper right eye lid approximately 0.3 cm in diameter. Continues today. She reports no drainage, itch, pain, or redness to the sclera, or fever. She says it appears to be a stye. Asking if provider wants anything done. Requests call back at [phone]. Julieta Reed RN [facility] 08-02-2024 Note [facility] 08-02-2024 History of Presen t illness Narrative CDM Telephonic Outreach Provider Action/FYI CHF Assisted living staff assist with meals, medications, wts, and BPs Spoke with the patient who has no symptoms CHF but has had a head cold for the past 3-4 days. He saw his PCP last week when it started. No SOB or fevers. Instructed to call PCP office if symptoms worsen. At his request, sent [employer] message with phone number for billing. Completed CHF goal. Appointments for Next 60 Days Date Time Provider Location Dept Phone 08/22/2024 11:00 AM [facility] [place] [phone] 09/15/2024 11:15 AM [facility] [place] [phone] 09/15/2024 11:30 AM LAVERNEBALJINDER [facility] [place] [phone] 09/27/2024 10:30 AM [facility] [address] J [phone] 09/27/2024 11:00 AM IRAM JOHNSON [facility] C[facility] J [phone] Contacted for: Routine Telephonic Outreach Contact made with patient: Yes Patient identified by name and date of . Discussed care with patient Are you experiencing any new or worsening symptoms you need to talk about today? No Disease Specific Do you check your blood pressure at home? No Do you have new or worsening shortness of breath with activity? No Do you have new or worsening trouble breathing while lying flat? No Do you have new or worsening swelling of legs, feet or ankles? No Do you check your daily weight at home? Yes, Have you noticed a sudden gain in weight greater than three pounds in a day or three pounds in a week? No Based on treating engineer helper, the following disposition is advised: No symptoms or symptoms present, not severe. Routed to: No Action Needed MARCELO Education Provided this Outreach: No Ginna Em RN August 02, 2024 11:23 AM documented in this encounter [facility] 07-29-2024 Note [facility] 07-29-2024 History of Presen t illness Narrative This note was created using ExpenseBotriter. Subjective Srini Luis is a 88 year old male was here with daughter. He had minor congestion and cough for a few days. He was tested negative for Covid at [facility]. Overall, he felt well. His cardiovascular issues were stable. His anemia is monitored by Dr. Galloway. CAD, CHF,and pacemaker was monitored by Dr. Minor. He developed recurrent restless legs, and physical therapy was started for ambulation, and this was helping. Review of Systems Constitutional: Negative for chills, fatigue, fever and unexpected weight change. HENT: Positive for congestion. Negative for ear pain and sore throat. Respiratory: Negative for cough, shortness of breath and wheezing. Cardiovascular: Positive for leg swelling. Negative for chest pain and palpitations. Gastrointestinal: Negative for constipation and diarrhea. Genitourinary: Negative for difficulty urinating. Musculoskeletal: Positive for arthralgias. 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 (Hcc) Cva (Cerebral Vascular Accident) (Hcc) Chb (Complete Heart Block) (Hcc) Correction Current Use of Anticoagulant Lymphedema of Both Lower Extremities Osteoarthritis, Generalized History of Anemia Chronic Atrial Fibrillation (Hcc) Benign Hypertension Diverticulosis Nocturnal Hypoxemia Rbbb Chronic Heart Failure With Preserved Ejection Fraction (Hcc) Restless Leg Syndrome Social History Tobacco Use Smoking status: Former Current packs/day: 0.00 Types: Cigarettes Quit date: 08/11/1989 Years since quittin.9 Smokeless tobacco: Never Tobacco comments: quit 18-19 years ago Vaping Use Vaping status: Never Used Substance Use Topics Alcohol use: Yes Alcohol/week: 3.0 standard drinks of alcohol Types: 3 Glasses of wine per week Comment: occ Drug use: No Current Outpatient Medications Medication Sig levothyroxine (SYNTHROID) 100 mcg tablet Take 1 tablet by mouth once daily. Take on empty stomach folic acid 1 mg tablet Take 1 tablet by mouth once daily. atorvastatin (LIPITOR) 20 mg tablet Take 1 tablet by mouth once daily. furosemide (LASIX) 40 mg tablet Take 0.5 tablets by mouth two times a day. AM and noon. ADULT LOW DOSE ASPIRIN ORAL Take 81 mg by mouth once daily. rivaroxaban (XARELTO) 20 mg tablet Take 1 tablet by mouth daily with dinner. Resume Sep 20 2022 nitroglycerin sublingual (NITROQUICK) 0.4 mg SL tablet nitroglycerin 0.4 mg sublingual tablet cyanocobalamin (VITAMIN B-12) 1,000 mcg tab Take 1,000 mcg by mouth once daily. polyethylene glycol 3350 (MIRALAX, GLYCOLAX) 17 gram packet Take 17 g by mouth once daily as needed for constipation. Dissolve dose in 4 - 8 ounces of liquid and take as directed. MULTIVITAMIN TABLET Take 1 tablet by mouth once daily. No current facility-administered medications for this visit. Objective BP 118/70 (BP Site: Left Arm, BP Position: Sitting, BP Cuff Size: Regular Adult) Pulse 80 Temp 36.9 C (98.4 F) (Temporal) Resp 18 Wt 77.7 kg (171 lb 4.8 oz) SpO2 97% BMI 26.83 kg/m Physical Exam Constitutional: General: He is not in acute distress. Appearance: He is not ill-appearing or diaphoretic. HENT: Right Ear: Tympanic membrane normal. There is impacted cerumen. Left Ear: Tympanic membrane normal. Nose: No congestion or rhinorrhea. Mouth/Throat: Mouth: Mucous membranes are moist. Pharynx: Oropharynx is clear. Eyes: General: No scleral icterus. Conjunctiva/sclera: Conjunctivae normal. Cardiovascular: Rate and Rhythm: Normal rate and regular rhythm. Heart sounds: No murmur heard. No gallop. Pulmonary: Breath sounds: No stridor. No wheezing or rales. Comments: Pleural rub, right lung base, chronic. Musculoskeletal: Right lower le+ Pitting Edema present. Left lower le+ Pitting Edema present. Lymphadenopathy: Cervical: No cervical adenopathy. Neurological: General: No focal deficit present. Mental Status: He is alert. Gait: Gait abnormal. Comments: Ambulatory with cane. Assessment and Plan 1. Benign hypertension - ICD9: 401.1, ICD10: I10 (primary diagnosis) - Controlled - Continue current medications 2. Screening for depression - ICD9: V79.0, ICD10: Z13.31 - DEPRESSION SCREENING 3. Encounter for screening examination for other mental health and behavioral disorders - ICD9: V79.8, ICD10: Z13.39 - ANXIETY SCREENING 4. Mixed hyperlipidemia - ICD9: 272.2, ICD10: E78.2 - Controlled - Continue current medications - COMPREHENSIVE METABOLIC PANEL - LIPID PANEL BASIC 5. Hypothyroidism, unspecified type - ICD9: 244.9, ICD10: E03.9 - continue current dose of Synthroid. - THYROID STIMULATING HORMONE 6. Lymphedema of both lower extremities - ICD9: 457.1, ICD10: I89.0 - Controlled. 7. Chronic atrial fibrillation (HCC) - ICD9: 427.31, ICD10: I48.20 Anticoagulated. 8. Myasthenia gravis (HCC) - ICD9: 358.00, ICD10: G70.00 No recent activity. 9. Chronic heart failure with preserved ejection fraction (HCC) - ICD9: 428.9, ICD10: I50.32 Controlled. 10. Viral URI - ICD9: 465.9, ICD10: J06.9 - Discussed viral etiology and rationale for treatment. - Symptomatic treatment with prn analgesia - Supportive care with fluids and rest 11. Restless leg syndrome - ICD9: 333.94, ICD10: G25.81 PT helping. 12. Pleural rub - ICD9: 786.7, ICD10: R09.89 Chronic. Reviewed findings and chest X-ray in January. Ronaldo Pleitez MD documented in this encounter [facility] 07-22-2024 Telephone encounter Note Lab scheduled [facility] Work Phone: 07-22-2024 Miscellaneous Notes Lab scheduled Patient notified. PSS- please schedule a lab appointment for CBC(?TX) 08/22/2024 @ 11:00. Patient is aware of appointment date and time. Liza Shipman LPN Hgb down a tiny bit, but essentially stable. Recheck CBC for poss trans in about a month. Baljinder Galloway DO documented in this encounter [facility] 07-22-2024 Telephone encounter Note Patient notified. PSS- please schedule a lab appointment for CBC(?TX) 08/22/2024 @ 11:00. Patient is aware of appointment date and time. Liza Shipman LPN [facility] 07-22-2024 Telephone encounter Note Hgb down a tiny bit, but essentially stable. Recheck CBC for poss trans in about a month. Baljinder Galloway DO [facility] 07-05-2024 Note [facility] 07-05-2024 History of Presen t illness Narrative CDM Telephonic Outreach Provider Action/MARIA ELENAI 2nd TO attempt CHF Assisted living staff assist with meals, medications, wts, and BPs Spoke with the patient who reports that he is feeling well and has no needs at this time. He has spoken with the dietary staff at his assisted living facility about the salt content in the food. Last time reached by Desk Director: 05/11/24 with 3 attempts since then. ADL/falls/goals assessments due: 10/07/24 Last time SDH for transportation/food insecurity completed: 12/03/23 No transportation or food insecurity needs found from asking SDOH questions. Recent admit/ED visit since last CDM call?: NA Goals:Review CHF zone sheet at next call Goals: Instructed on and sent CHF zone sheet and salty six instructions. Completed general goal Appointments for Next 60 Days Date Time Provider Location Dept Phone 07/21/2024 10:00 AM LAB [facility] [place] [phone] 07/29/2024 11:00 AM RONALDO PLEITEZ [facility] [place] [phone] Contacted for: Routine Telephonic Outreach Contact made with patient: Yes Patient identified by name and date of . Discussed care with patient Are you experiencing any new or worsening symptoms you need to talk about today? No Disease Specific Do you check your blood pressure at home? Yes, Enter readings: states BPs are good when staff check them Do you have new or worsening shortness of breath with activity? No Do you have new or worsening trouble breathing while lying flat? No Do you have new or worsening swelling of legs, feet or ankles? No Do you check your daily weight at home? Yes, Have you noticed a sudden gain in weight greater than three pounds in a day or three pounds in a week? No Based on treating engineer helper, the following disposition is advised: No symptoms or symptoms present, not severe. Routed to: No Action Needed MARCELO Education Provided this Outreach: No Ginna Em RN July 05, 2024 2:10 PM documented in this encounter [facility] 07-04-2024 Note [facility] 07-04-2024 History of Presen t illness Narrative CDM Telephonic Outreach Provider Action/FYI CHF Assisted living staff assist with meals, medications, wts, and BPs Left VM. Last time reached by Desk Director: 06/08/24 with 3 attempts since then. ADL/falls/goals assessments due: 10/07/24 Last time SDH for transportation/food insecurity completed: 12/03/23 Recent admit/ED visit since last CDM call?: NA Goals:Review CHF zone sheet at next call Appointments for Next 60 Days Date Time Provider Location Dept Phone 07/21/2024 10:00 AM LAB [facility] [place] [phone] 07/29/2024 11:00 AM RONALDO PLEITEZ [facility] [place] [phone] Contacted for: Routine Telephonic Outreach Contact made with patient: No, left message. Ginna Em RN July 04, 2024 3:56 PM documented in this encounter [facility] 06-17-2024 History of Presen t illness Narrative Dual Pacer Remote Check Date: June 17, 2024 Time: 11:46 AM Devices: Implants Lead Ra Lead Biotronik-09/17/2022 - Implanted Heart Model/Cat number: ADAIR Pena [id number] Serial number: [id number] Indigo Mixer: [employer] Lot number: LEFT AXILLARY VEIN Size: Right Atrial Pacing Lead Rv Lead Biotronik-09/17/2022 - Implanted Heart Model/Cat number: ADAIR Pena [id number] Serial number: [id number] Indigo Mixer: [employer] Lot number: LEFT CEPHALIC VEIN Size: Right Ventricular Pacing Lead Pacemaker Dual Pacer Biotronik-09/17/2022 - Implanted (Left) Chest Wall Model/Cat number: [id number] Serial number: [id number] Indigo Mixer: [employer] Lot number: INITIAL DUAL PACER IMPLANT. 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; LVEF 68%; 4V Cabg 07/22/2021; TIMMY Ligation, Post Cabg Afib; Xarelto; Last Interrogation Date: 02-29-2024 Estimated Remaining Longevity: 85% of the battery left until CHADWICK Interrogation Performed by: Stephany Abraham LPN Programming Parameters Mode: VVI Lower Rate: 60 Upper Track: N/a Upper Sensor: N/a Paced AV Delay: N/a Sensed AV Delay: N/a Atrial Refractory: N/a Mode Switch: N/a Atrial: off Right Ventricle: Threshold: N/a Programmed amp/PW: 1.0 V @ 0.75 msec R wave: 10.9 mV Sensitivity: auto Impedance: 390 ohms RV pacin% Episodes: Atrial Fib count: n/a Atrial burden: n/a Mode Switch episodes: n/a Ventricular Fibrillation count: 0 Fast Ventricular Tachycardia count: 0 Slow Ventricular Tachycardia: 0 NSVT: 0 Summary: Normal device function. Normal pacing and sensing threshold. Battery: 85% of the battery left until CHADWICK. Histogram: ok. Atrial episodes: n/a. Ventricular episodes: none. Follow up: 3 month device check and provider appointment. View External Cardiology - Programme Strips [ID [id number]] documented in this encounter [facility] 06-16-2024 Note [facility] 06-16-2024 History of Presen t illness Narrative Diagnosis: 1) CMML. HPI: The patient is an 88-year-old male with a past medical history significant for coronary artery disease (four-vessel CABG), stroke, paroxysmal atrial fibrillation, hypertension, hypothyroidism, heart block (PPM) who underwent a work-up for macrocytic anemia. Patient had a history of B12 deficiency associated with macrocytic anemia. However he had become progressively more anemic and was seen by Dr. Rowell and underwent bone marrow biopsy in 10/2022. Cytogenetics (see separate report) revealed a normal male karyotype: 46,XY[20]. The myeloid NGS panel (see separate report) identified the following variants (with VAFs): SF3B1 p.H662Q (41.7%) and TET2 p.[id number]*6 (46%). 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 The threshold for absolute monocytosis in CMML has since been lowered to 0.5 k/uL (from 1.0 k/uL in the 2016 WHO), which accounts for the discrepancy. Further, the category of CMML-0 (which this neoplasm would have otherwise been classified as) has been eliminated by both classification systems in lieu of a two-tiered blast-based grading scheme (of CMML-1 and -2 only). The patient had a single CBC since 2019 (specifically 08/24/2022) in which there was not a relative monocytosis; this is attributable to transiently increased neutrophils in the setting of acute stroke/ischemia, and is here regarded as an outlier. Normal cytogenetics. Moved from [place] to assisted living at [facility]. Established care here. Drives. Current therapy: 1) Azacitidine. Cycle 10/14/2023. Most recent cycle 05/2023. He was also diagnosed with acute DVT of the internal jugular vein on the right. This occurred despite anticoagulation with rivaroxaban. Port was removed. He was admitted to [facility] 05/15 through 05/18 for gram-negative bacteremia attributed to right lower extremity cellulitis. He was initially treated with IV broad-spectrum antibiotics including Zosyn and discharged on Levaquin. Blood cultures cleared prior to discharge. Presents for ongoing oncologic management. Interim history: No complaints today. No acute illnesses since last seen. Again verified today: No dyspnea with walking. Uses cane. Still driving. No unusual bleeding. Walking but limited by lumbar spinal stenosis. Has been having more restlessness of the legs at night. 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 08/22/2022: 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 ([facility]) Comment: Pontine infarction, R>L 07/11/2020: B12 deficiency 08/14/2021: Benign hypertension No date: CAD (coronary artery disease) 09/17/2022: CHB (complete heart block) ([facility]) Comment: 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; Confirmed Blk below His by His Bundle Electrogram No date: Chronic atrial fibrillation ([facility]) 12/01/2022: 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 ([facility]) 08/22/2022: CVA (cerebral vascular accident) ([facility]) No date: Diverticulosis No date: History of anemia 07/22/2021: Hx of CABG Comment: 4 vessel CABG with ORNELAS-LAD, SVG-RI, SVG-OM, and SVG-RCA in [facility] No date: Hypertension No date: Hypothyroidism No date: USP current use of anticoagulant Comment: Xarelto 20 mg daily 03/12/2023: MDS (myelodysplastic syndrome) ([facility]) No date: Mixed hyperlipidemia No date: Myasthenia gravis ([facility]) Comment: Last seen by neurology July 29, 2017. 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 2017 when he's been off medication No date: Nocturnal hypoxemia Comment: On oxygen at night No date: Osteoarthritis, generalized 09/17/2022: Pacemaker Comment: 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 07/11/2020: Venous stasis of both lower extremities 08/25/2022: Vertebral artery occlusion, left 07/11/2020: Vitamin D deficiency PAST SURGICAL HISTORY 12/18/2020: ANKLE RIGHT OP SURGERY; Right Comment: Dr Arreola [facility] 11/09/2008: ARTHROPLASTY TOTAL SHOULDER Comment: right 1999: ARTHROSCOPY OF JOINT UNLISTED Comment: Elbow right 07/21/2021: CABG (4) VEIN GRAFTS & ARTERIAL GRAFT(S) Comment: In [facility] [place] 09/01/2005: COLONOSCOPY FLX DX W/COLLJ SPEC WHEN PFRMD Comment: Colonoscopy 09/27/2015: COLONOSCOPY FLX DX W/COLLJ SPEC WHEN PFRMD Comment: Colonoscopy No date: REMOVAL OF TONSILS,<12 Y/O 09/17/2022: S $ DUAL CHMBR PACER [id number]; Left Comment: 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 ALLERGIES Allergen Reactions Simvastatin Other: See Comments Elevated CK Current Outpatient Medications Medication Sig levothyroxine (SYNTHROID) 100 mcg tablet Take 1 tablet by mouth once daily. Take on empty stomach folic acid 1 mg tablet Take 1 tablet by mouth once daily. atorvastatin (LIPITOR) 20 mg tablet Take 1 tablet by mouth once daily. furosemide (LASIX) 40 mg tablet Take 0.5 tablets by mouth two times a day. AM and noon. ADULT LOW DOSE ASPIRIN ORAL Take 81 mg by mouth once daily. rivaroxaban (XARELTO) 20 mg tablet Take 1 tablet by mouth daily with dinner. Resume Sep 20 2022 nitroglycerin sublingual (NITROQUICK) 0.4 mg SL tablet nitroglycerin 0.4 mg sublingual tablet cyanocobalamin (VITAMIN B-12) 1,000 mcg tab Take 1,000 mcg by mouth once daily. polyethylene glycol 3350 (MIRALAX, GLYCOLAX) 17 gram packet Take 17 g by mouth once daily as needed for constipation. Dissolve dose in 4 - 8 ounces of liquid and take as directed. MULTIVITAMIN TABLET Take 1 tablet by mouth once daily. ACETAMINOPHEN ORAL Take by mouth. Do not exceed 3 grams (3000mg) in 24 hours sennosides/docusate sodium (SENNA PLUS ORAL) Take 2 tablets by mouth as needed. No current facility-administered medications for this visit. Social History Tobacco Use Smoking status: Former Types: Cigarettes Quit date: 08/11/1989 Years since quittin.8 Smokeless tobacco: Never Tobacco comments: quit 18-19 years ago Vaping Use Vaping Use: Never used Substance Use Topics Alcohol use: Yes Alcohol/week: 3.0 standard drinks of alcohol Types: 3 Glasses of wine per week Comment: occ Drug use: No Family History Problem Relation Age of Onset Heart Mother Heart Father CHF Colon Cancer No Family History Prostate Cancer No Family History Blood Clots No Family History NO PE OR DVT ROS: Constitutional: Denies episodes of fever and night sweats. Neuro: Denies TRACEY, vertigo, dizziness and imbalance. Denies symptoms of neuropathy. HEENT: No recent change in voice, vision or hearing. Resp: Denies cough, wheeze and hemoptysis. Denies shortness of breath at rest. Denies FELDMAN (with walking). CVS: Denies exertional chest pain, PND and orthopnea. Uses b/l compression stockings. GI: Denies dysgeusia. Denies symptoms of stomatitis. Denies dysphagia and odynophagia. Denies reflux, n/v, change in bowel habits and abdominal pain. : Denies dysuria or gross hematuria. No symptoms of bladder outlet obstruction. Endo: Denies hot flashes. Denies polyuria and polydipsia. Denies heat and cold intolerance. Musculoskeletal: Lower back pain when walking. Derm: Denies rash. Denies jaundice and diffuse pruritis. Heme: See HPI. Psych: Normal mood. PHYSICAL EXAM: Vitals: Blood pressure 102/55, pulse 81, temperature 36.7 C (98.1 F), temperature source Temporal, weight 78.5 kg (173 lb), SpO2 96%. Well-appearing and in no acute distress. EYES: Sclerae are anicteric bilaterally. RESPIRATORY: Inspiratory breath sounds are of normal intensity in all manning. No rales, wheezes or rhonchi. CARDIOVASCULAR: Rhythm is regular on today's exam. ABDOMEN: The abdomen is nondistended Extremities: Mild chronic swelling. Has compression stockings on. SKIN: No jaundice. 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 -Treatment complicated by right IJ thrombus despite being on rivaroxaban and Gram negative sepsis from LE cellulitis. -Consider ABRAHAM if Hg drifts lower. -Reviewed labs. Worsening anemia, although has fluctuated in the past. No thrombocytopenia. Differential no immature cells. Plan: -Recheck CBC in about a month. May start Aranesp at that time if iron okay and Hgb <10 g/dL. -Okay to continue ASA and rivaroxaban. -Follow up on iron from today. -OV in about 3 months. -He will follow-up with physical therapy at [facility] for restless legs. Portions of this documentation were copied and pasted from previous office visit notes in order to provide a cohesive continuity of the history. The note has been reviewed and edited and updated as necessary. I spent a total of 15 minutes on the date of the service which included preparing to see the patient, [id number] patient care, completing clinical documentation, obtaining and/or reviewing separately obtained history, performing a medically appropriate examination, counseling and educating the patient/family/caregiver, ordering medications, tests, or procedures, communicating with other HCPs (not separately reported), and communicating results to the patient/family/caregiver. Baljinder Galloway DO documented in this encounter [facility] 06-09-2024 History of Presen t illness Narrative CDM Telephonic Outreach Provider Action/FYI 2nd TO attempt CHF Assisted living staff assist with meals, medications, wts, and BPs Left VM. Sent CHF zone sheet in [employer] message to be reviewed at next call. Last time reached by Desk Director: 05/11/24 ADL/falls/goals assessments due: 10/07/24 Last time SDH for transportation/food insecurity completed: 12/03/23 Recent admit/ED visit since last CDM call?: NA Goals: Appointments for Next 60 Days Date Time Provider Location Dept Phone 06/16/2024 8:45 AM [facility] [place] [facility] [phone] 06/16/2024 9:10 AM BALJINDER GALLOWAY [facility] [phone] 06/17/2024 1:15 PM [facility] [address] J [phone] 07/29/2024 11:00 AM RONALDO PLEITE[facility] [phone] Contacted for: Routine Telephonic Outreach Contact made with patient: No, left message. Ginna Em RN June 09, 2024 10:16 AM documented in this encounter [facility] 06-08-2024 History of Presen t illness Narrative CDM Telephonic Outreach Provider Action/MARIA ELENAI CHF Assisted living staff assist with meals, medications, wts, and BPs Left VM Last time reached by Desk Director: 05/11/24 ADL/falls/goals assessments due: 10/07/24 Last time SDH for transportation/food insecurity completed: 12/03/23 Recent admit/ED visit since last CDM call?: NA Goals: Appointments for Next 60 Days Date Time Provider Location Dept Phone 06/16/2024 8:45 AM [facility] [phone] 06/16/2024 9:10 AM BALJINDER GALLOWAY [facility] [phone] 06/17/2024 1:15 PM [facility] [address] J [phone] 07/29/2024 11:00 AM RONALDO PLEITEZ [facility] [phone] Contacted for: Routine Telephonic Outreach Contact made with patient: No, left message. Ginna Em RN June 08, 2024 11:34 AM documented in this encounter [facility] 05-25-2024 History of Presen t illness Narrative POPULATION HEALTH NAVIGATION OUTREACH Action/FY Patient is on the [place] Medication Adherence list for the following medications: ATORVASTATIN 20MG TAB Dispensed: 01/22/2024 12:00 AM Unit strength: 20 Unit form: tablet Days supply: 90 Quantity: 90 tablet [facility] [place] [address] - [address] [facility] - [phone] Next dispense due date: 04/21/24 Outcome: Refills available on current prescription. Called [facility] living and spoke with nurse Luu. Patient is taking the Atorvastatin daily. He was on 40 mg daily before it was changed to 20 mg daily so they were giving him 1/2 tablet of the 40 mg tablets until the medication ran out. The patient currently has a one month supply remaining. Bell requested I contact [facility] to have another 90 day supply ordered. Spoke with Raisa. The Atorvastatin refill we be processed today for shipping. Wellness visit completed 01/22/24. Patient has a follow up appointment scheduled for 07/29/24. Reason for Outreach Med Adherence Patient Contacted: Spoke to patient/parent/or legal guardian Patient identified by name and date of : Yes Med Adherence actions taken: Patient Med Adherence responses: Spoke to patient and patient request we contact pharmacy Outreach call to pharmacy:Calling in refill for patient Navigation Signature: Eugenia Kraft MA May 25, 2024 7:31 AM documented in this encounter [facility] 05-11-2024 History of Presen t illness Narrative CDM Telephonic Outreach Provider Action/ 2nd TO attempt CHF Assisted living staff assist with meals, medications, wts, and BPs Spoke with the patient who reports that he is feeling very well. He has a little ankle edema today because he did not put his stockings on today. No needs at this time. Last time reached by Desk Director: 04/12/24 ADL/falls/goals assessments due: 10/07/24 Last time SDH for transportation/food insecurity completed: 12/03/23 Recent admit/ED visit since last CDM call?: NA Appointments for Next 60 Days Date Time Provider Location Dept Phone 06/16/2024 8:45 AM LAB [facility] [place] [facility] [phone] 06/16/2024 9:10 AM BALJINDER GALLOWAY [facility] [phone] 06/17/2024 1:15 PM [facility] [address] [place] [phone] Contacted for: Routine Telephonic Outreach Contact made with patient: Yes Patient identified by name and date of . Discussed care with patient Are you experiencing any new or worsening symptoms you need to talk about today? No Disease Specific Do you check your blood pressure at home? Yes, Enter readings: A/L staff will check periodically Do you have new or worsening shortness of breath with activity? No Do you have new or worsening trouble breathing while lying flat? No Do you have new or worsening swelling of legs, feet or ankles? No Do you check your daily weight at home? No Based on treating engineer helper, the following disposition is advised: No symptoms or symptoms present, not severe. Routed to: No Action Needed MARCELO Education Provided this Outreach: No Ginna Em RN May 11, 2024 3:06 PM documented in this encounter [facility] 05-10-2024 History of Presen t illness Narrative CDM Telephonic Outreach Provider Action/FYI CHF Assisted living staff assist with meals, medications, wts, and BPs Left VM Last time reached by Desk Director: 04/12/24 ADL/falls/goals assessments due: 10/07/24 Last time SDH for transportation/food insecurity completed: 12/03/23 Recent admit/ED visit since last CDM call?: NA Appointments for Next 60 Days Date Time Provider Location Dept Phone 06/16/2024 8:45 AM LAB [facility] [place] [facility] [phone] 06/16/2024 9:10 AM BALJINDER GALLOWAY [phone] 06/17/2024 1:15 PM [facility] [address] J [phone] Contacted for: Routine Telephonic Outreach Contact made with patient: No, left message. Ginna Em RN May 10, 2024 10:42 AM documented in this encounter [facility] 04-12-2024 History of Presen t illness Narrative CDM Telephonic Outreach Provider Action/FYI CHF Assisted living staff assist with meals, medications, wts, and BPs Spoke with the patient who reports that he is feeling well and has no needs at this time. Last time reached by Desk Director: 03/15/24 ADL/falls/goals assessments due: 10/07/24 Last time SDH for transportation/food insecurity completed: 12/03/23 Recent admit/ED visit since last CDM call?: NA Contacted for: Routine Telephonic Outreach Contact made with patient: Yes Patient identified by name and date of . Discussed care with patient Are you experiencing any new or worsening symptoms you need to talk about today? No Disease Specific Do you check your blood pressure at home? Yes, Enter readings: nurse checks manually every 2 weeks and patient states it is OK Do you have new or worsening shortness of breath with activity? No Do you have new or worsening trouble breathing while lying flat? No Do you have new or worsening swelling of legs, feet or ankles? No Do you check your daily weight at home? Yes, Have you noticed a sudden gain in weight greater than three pounds in a day or three pounds in a week? No Based on treating engineer helper, the following disposition is advised: No symptoms or symptoms present, not severe. Routed to: No Action Needed MARCELO Education Provided this Outreach: No Ginna Em RN April 12, 2024 10:51 AM documented in this encounter [facility] 03-17-2024 History of Presen t illness Narrative Diagnosis: 1) CMML. HPI: The patient is an 88-year-old male with a past medical history significant for coronary artery disease (four-vessel CABG), stroke, paroxysmal atrial fibrillation, hypertension, hypothyroidism, heart block (PPM) who underwent a work-up for macrocytic anemia. Patient had a history of B12 deficiency associated with macrocytic anemia. However he had become progressively more anemic and was seen by Dr. Rowell and underwent bone marrow biopsy in 10/2022. Cytogenetics (see separate report) revealed a normal male karyotype: 46,XY[20]. The myeloid NGS panel (see separate report) identified the following variants (with VAFs): SF3B1 p.[id number] (41.7%) and TET2 p.[id number]*6 (46%). 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 The threshold for absolute monocytosis in CMML has since been lowered to 0.5 k/uL (from 1.0 k/uL in the 2016 WHO), which accounts for the discrepancy. Further, the category of CMML-0 (which this neoplasm would have otherwise been classified as) has been eliminated by both classification systems in lieu of a two-tiered blast-based grading scheme (of CMML-1 and -2 only). The patient had a single CBC since 2019 (specifically 08/24/2022) in which there was not a relative monocytosis; this is attributable to transiently increased neutrophils in the setting of acute stroke/ischemia, and is here regarded as an outlier. Normal cytogenetics. Moved from [place] to assisted living at [facility]. Established care here. Drives. Current therapy: 1) Azacitidine. Cycle 10/14/2023. Most recent cycle 05/2023. He was also diagnosed with acute DVT of the internal jugular vein on the right. This occurred despite anticoagulation with rivaroxaban. Port was removed. He was admitted to [facility] 05/15 through 05/18 for gram-negative bacteremia attributed to right lower extremity cellulitis. He was initially treated with IV broad-spectrum antibiotics including Zosyn and discharged on Levaquin. Blood cultures cleared prior to discharge. Presents for ongoing oncologic management. Interim history: No complaints today. No acute illnesses since last seen. Again verified today: No dyspnea with walking. Uses cane. Still driving. No unusual bleeding. Walking but limited by lumbar spinal stenosis. 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 2017 when he's been off medication Nocturnal hypoxemia On oxygen at night Osteoarthritis, generalized Pacemaker 09/17/2022 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 Vitamin D deficiency 07/11/2020 PAST SURGICAL HISTORY Procedure Laterality Date ANKLE RIGHT OP SURGERY Right 12/18/2020 Dr Arreola [facility] ARTHROPLASTY TOTAL SHOULDER 11/09/2008 right ARTHROSCOPY OF JOINT UNLISTED 2000 Elbow right CABG (4) VEIN GRAFTS & ARTERIAL GRAFT(S) 07/21/2021 In [facility] [place] COLONOSCOPY FLX DX W/COLLJ SPEC WHEN PFRMD 09/01/2005 Colonoscopy COLONOSCOPY FLX DX W/COLLJ SPEC WHEN PFRMD 09/27/2015 Colonoscopy REMOVAL OF TONSILS,<12 Y/O S $ DUAL CHMBR PACER [id number] Left 09/17/2022 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 ALLERGIES Allergen Reactions Simvastatin Other: See Comments Elevated CK Current Outpatient Medications Medication Sig levothyroxine (SYNTHROID) 100 mcg tablet Take 1 tablet by mouth once daily. Take on empty stomach folic acid 1 mg tablet Take 1 tablet by mouth once daily. atorvastatin (LIPITOR) 20 mg tablet Take 1 tablet by mouth once daily. furosemide (LASIX) 40 mg tablet Take 0.5 tablets by mouth two times a day. AM and noon. ACETAMINOPHEN ORAL Take by mouth. Do not exceed 3 grams (3000mg) in 24 hours ADULT LOW DOSE ASPIRIN ORAL Take by mouth. rivaroxaban (XARELTO) 20 mg tablet Take 1 tablet by mouth daily with dinner. Resume Sep 20 2022 sennosides/docusate sodium (SENNA PLUS ORAL) Take 2 tablets by mouth as needed. nitroglycerin sublingual (NITROQUICK) 0.4 mg SL tablet nitroglycerin 0.4 mg sublingual tablet cyanocobalamin (VITAMIN B-12) 1,000 mcg tab Take 1,000 mcg by mouth once daily. polyethylene glycol 3350 (MIRALAX, GLYCOLAX) 17 gram packet Take 17 g by mouth once daily as needed for constipation. Dissolve dose in 4 - 8 ounces of liquid and take as directed. MULTIVITAMIN TABLET Take 1 tablet by mouth once daily. No current facility-administered medications for this visit. Social History Tobacco Use Smoking status: Former Types: Cigarettes Quit date: 08/11/1989 Years since quittin.6 Smokeless tobacco: Never Tobacco comments: quit 18-19 years ago Vaping Use Vaping Use: Never used Substance Use Topics Alcohol use: Yes Alcohol/week: 3.0 standard drinks of alcohol Types: 3 Glasses of wine per week Drug use: No Family History Problem Relation Age of Onset Heart Mother Heart Father CHF Colon Cancer No Family History Prostate Cancer No Family History Blood Clots No Family History NO PE OR DVT ROS: Constitutional: Denies episodes of fever and night sweats. Neuro: Denies TRACEY, vertigo, dizziness and imbalance. Denies symptoms of neuropathy. HEENT: No recent change in voice, vision or hearing. Resp: Denies cough, wheeze and hemoptysis. Denies shortness of breath at rest. Denies FELDMAN (with walking). CVS: Denies exertional chest pain, PND and orthopnea. Uses b/l compression stockings. GI: Denies dysgeusia. Denies symptoms of stomatitis. Denies dysphagia and odynophagia. Denies reflux, n/v, change in bowel habits and abdominal pain. : Denies dysuria or gross hematuria. No symptoms of bladder outlet obstruction. Endo: Denies hot flashes. Denies polyuria and polydipsia. Denies heat and cold intolerance. Musculoskeletal: Lower back pain when walking. Derm: Denies rash. Denies jaundice and diffuse pruritis. Heme: See HPI. Psych: Normal mood. PHYSICAL EXAM: Vitals: Blood pressure 102/58, pulse 76, temperature 36.7 C (98 F), temperature source Temporal, weight 75.5 kg (166 lb 8 oz), SpO2 95%. Well-appearing and in no acute distress. EYES: Sclerae are anicteric bilaterally. ENT: Oral mucosa is unremarkable. There is no sign of thrush or mucositis. LYMPHATIC: There is no palpable cervical, supraclavicular or axillary adenopathy. RESPIRATORY: Inspiratory breath sounds are of normal intensity in all manning. No rales, wheezes or rhonchi. CARDIOVASCULAR: Rhythm is regular on today's exam. ABDOMEN: The abdomen is nondistended Extremities: He has chronic appearing swelling of both LEs extending to the dorsum of both feet. SKIN: No jaundice. 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 -Treatment complicated by right IJ thrombus despite being on rivaroxaban and Gram negative sepsis from LE cellulitis. -Consider ABRAHAM if Hg drifts lower. -Reviewed labs. Stable Hgb overall. No thrombocytopenia. Differential no immature cells. Plan: -Change to monitoring of counts every 3 months. -Okay to continue ASA and rivaroxaban. -OV in about 3 months. Portions of this documentation were copied and pasted from previous office visit notes in order to provide a cohesive continuity of the history. The note has been reviewed and edited and updated as necessary. I spent a total of 15 minutes on the date of the service which included preparing to see the patient, [id number] patient care, completing clinical documentation, obtaining and/or reviewing separately obtained history, performing a medically appropriate examination, counseling and educating the patient/family/caregiver, communicating with other HCPs (not separately reported), and communicating results to the patient/family/caregiver. Baljinder Galloway DO documented in this encounter [facility] 03-15-2024 History of Presen t illness Narrative CDM Telephonic Outreach Provider Action/FYI 2nd TO attempt CHF Assisted living staff assist with meals, medications, wts, and BPs Spoke with patient who reports that he is feeling well and has no needs or concerns at this time. Last time reached by Desk Director: 02/15/24 ADL/falls/goals assessments due: 10/07/24 Last time SDH for transportation/food insecurity completed: 12/03/23 Recent admit/ED visit since last CDM call?: NA Appointments for Next 60 Days Date Time Provider Location Dept Phone 03/17/2024 11:15 AM LAB [facility] [place] Marva Borja [phone] 03/17/2024 11:50 AM BALJINDER GALLOWAY [phone] Contacted for: Routine Telephonic Outreach Contact made with patient: Yes Patient identified by name and date of . Discussed care with patient Are you experiencing any new or worsening symptoms you need to talk about today? No Disease Specific Do you check your blood pressure at home? No Do you have new or worsening shortness of breath with activity? No Do you have new or worsening trouble breathing while lying flat? No Do you have new or worsening swelling of legs, feet or ankles? No Do you check your daily weight at home? No Based on treating engineer helper, the following disposition is advised: No symptoms or symptoms present, not severe. Routed to: No Action Needed MARCELO Education Provided this Outreach: No Ginna Em RN March 15, 2024 11:13 AM documented in this encounter [facility] 03-14-2024 History of Presen t illness Narrative CDM Telephonic Outreach Provider Action/FYI CHF Assisted living staff assist with meals, medications, wts, and BPs Left VM Last time reached by Desk Director: 02/15/24 ADL/falls/goals assessments due: 10/07/24 Last time SDH for transportation/food insecurity completed: 12/03/23 Recent admit/ED visit since last CDM call?: NA Appointments for Next 60 Days Date Time Provider Location Dept Phone 03/17/2024 11:15 AM LAB [facility] [place] Borja [phone] 03/17/2024 11:50 AM BALJINDER GALLOWAY [phone] Contacted for: Routine Telephonic Outreach Contact made with patient: No, left message. Ginna Em RN March 14, 2024 2:41 PM documented in this encounter [facility] 02-29-2024 History of Presen t illness Narrative [facility] Ronaldo Pleitez MD SUBJECTIVE: Srini Luis is a 88 year old male who is here today for a follow-up visit. The patient is doing reasonably well from the cardiovascular standpoint. His biggest complaint is that his legs go numb when he sits in his chair at night. He states he has to move his legs around before the numbness will go away. He has some chronic lower extremity edema on the right side. The harvested veins for his bypass surgery from the right leg. The patient has not had any problems of chest pain, shortness of breath, palpitations, PND orthopnea, syncope, or near syncope. 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; Confirmed Blk below His by His Bundle Electrogram Chronic atrial fibrillation ([facility]) 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 2017 when he's been off medication Nocturnal hypoxemia On oxygen at night Osteoarthritis, generalized Pacemaker 09/17/2022 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 Vitamin D deficiency 07/11/2020 PAST SURGICAL HISTORY Procedure Laterality Date ANKLE RIGHT OP SURGERY Right 12/18/2020 Dr Arreola [facility] ARTHROPLASTY TOTAL SHOULDER 11/09/2008 right ARTHROSCOPY OF JOINT UNLISTED 2000 [place] right CABG (4) VEIN GRAFTS & ARTERIAL GRAFT(S) 07/21/2021 In [facility] COLONOSCOPY FLX DX W/COLLJ SPEC WHEN PFRMD 09/01/2005 Colonoscopy COLONOSCOPY FLX DX W/COLLJ SPEC WHEN PFRMD 09/27/2015 Colonoscopy REMOVAL OF TONSILS,<12 Y/O S $ DUAL CHMBR PACER [id number] Left 09/17/2022 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 FAMILY HISTORY Problem Relation Age of Onset Heart Mother Heart Father CHF Colon Cancer No Family History Prostate Cancer No Family History Blood Clots No Family History NO PE OR DVT SOCIAL HISTORY: Social History Tobacco Use Smoking status: Former Types: Cigarettes Quit date: 08/11/1989 Years since quittin.5 Smokeless tobacco: Never Tobacco comments: quit 18-19 years ago Vaping Use Vaping Use: Never used Substance Use Topics Alcohol use: Yes Alcohol/week: 3.0 standard drinks of alcohol Types: 3 Glasses of wine per week Drug use: No ALLERGIES: Simvastatin CURRENT MEDICATIONS: Current Outpatient Medications Medication Sig levothyroxine (SYNTHROID) 100 mcg tablet Take 1 tablet by mouth once daily. Take on empty stomach folic acid 1 mg tablet Take 1 tablet by mouth once daily. atorvastatin (LIPITOR) 20 mg tablet Take 1 tablet by mouth once daily. furosemide (LASIX) 40 mg tablet Take 0.5 tablets by mouth two times a day. AM and noon. ACETAMINOPHEN ORAL Take by mouth. Do not exceed 3 grams (3000mg) in 24 hours ADULT LOW DOSE ASPIRIN ORAL Take by mouth. rivaroxaban (XARELTO) 20 mg tablet Take 1 tablet by mouth daily with dinner. Resume Sep 20 2022 sennosides/docusate sodium (SENNA PLUS ORAL) Take 2 tablets by mouth as needed. nitroglycerin sublingual (NITROQUICK) 0.4 mg SL tablet nitroglycerin 0.4 mg sublingual tablet cyanocobalamin (VITAMIN B-12) 1,000 mcg tab Take 1,000 mcg by mouth once daily. polyethylene glycol 3350 (MIRALAX, GLYCOLAX) 17 gram packet Take 17 g by mouth once daily as needed for constipation. Dissolve dose in 4 - 8 ounces of liquid and take as directed. MULTIVITAMIN TABLET Take 1 tablet by mouth once daily. No current facility-administered medications for this visit. Review of Systems Constitutional: Negative for activity change and fever. Respiratory: Negative for apnea, cough, chest tightness, shortness of breath, wheezing and stridor. Cardiovascular: Positive for leg swelling. Negative for chest pain and palpitations. Gastrointestinal: Negative for abdominal distention, diarrhea and vomiting. Musculoskeletal: Negative for joint swelling, neck pain and neck stiffness. Skin: Negative for color change, pallor and rash. Neurological: Positive for numbness. Negative for dizziness, syncope, weakness and light-headedness. Hematological: Does not bruise/bleed easily. Psychiatric/Behavioral: Negative for agitation, behavioral problems and confusion. The patient is not nervous/anxious. All other systems reviewed and are negative. PHYSICAL EXAMINATION: 02/29/24 1410 BP: 140/78 BP Position: Sitting Pulse: 62 Weight: 73.9 kg (163 lb) Height: 170.2 cm (5' 7) Last 3 Encounter BP Readings: Date: BP: 01/22/2024 118/64 12/24/2023 125/84 12/23/2023 100/58 Last 3 Encounter Pulse Readings: Date: Pulse: 01/22/2024 68 12/24/2023 65 12/23/2023 60 Last 3 Encounter Wt Readings: Date: Wt: 01/22/2024 75.4 kg (166 lb 4.8 oz) 12/24/2023 73.7 kg (162 lb 8 oz) 12/23/2023 73.9 kg (163 lb) Potassium Date Value 02/18/2024 4.5 mmol/L 09/20/2021 4.5 MMOL/L Sodium Date Value 02/18/2024 139 mmol/L 09/20/2021 138 MMOL/L Magnesium (mg/dL) Date Value 09/18/2022 2.2 Creatinine Date Value 02/18/2024 1.10 mg/dL 09/20/2021 0.90 MG/DL BUN Date Value 02/18/2024 30 mg/dL 09/20/2021 25 MG/DL Glucose Date Value 02/18/2024 97 mg/dL 09/20/2021 102 MG/DL PT INR (no units) Date Value 09/02/2021 1.5 (EXT) INR (no units) Date Value 10/24/2022 1.3 TSH Date Value 02/18/2024 0.135 mIU/L 06/09/2019 3.480 uU/mL NT Pro BNP (pg/mL) Date Value 08/06/2023 5,282 Physical Exam Vitals and nursing note reviewed. Constitutional: General: He is not in acute distress. Appearance: Normal appearance. He is not toxic-appearing. HENT: Head: Normocephalic and atraumatic. Nose: Nose normal. Mouth/Throat: Mouth: Mucous membranes are moist. Neck: Vascular: No carotid bruit. Cardiovascular: Rate and Rhythm: Normal rate and regular rhythm. Pulses: Normal pulses. Heart sounds: Murmur heard. No friction rub. No gallop. Pulmonary: Effort: Pulmonary effort is normal. No respiratory distress. Breath sounds: Normal breath sounds. No stridor. No wheezing, rhonchi or rales. Chest: Chest wall: No tenderness. Abdominal: General: Abdomen is flat. There is no distension. Palpations: Abdomen is soft. There is no mass. Tenderness: There is no abdominal tenderness. Musculoskeletal: General: No swelling. Cervical back: Normal range of motion. No muscular tenderness. Right lower leg: Edema present. Left lower leg: No edema. Comments: Trace right lower extremity edema Skin: General: Skin is warm and dry. Capillary Refill: Capillary refill takes less than 2 seconds. Coloration: Skin is not jaundiced or pale. Findings: No bruising or rash. Neurological: General: No focal deficit present. Mental Status: He is alert and oriented to person, place, and time. Mental status is at baseline. Motor: No weakness. Gait: Gait normal. Psychiatric: Mood and Affect: Mood normal. Behavior: Behavior normal. Thought Content: Thought content normal. Judgment: Judgment normal. Diagnostic results: Pacemaker check: Summary: Normal device function. Normal pacing and sensing threshold. Battery: 12 yrs 2 months until [place]. Histogram: ok. Atrial episodes: n/a. Ventricular episodes: 1 High Ventricular Rate 4 seconds long. Changes: none. ASSESSMENT/PLAN: 1. Benign hypertension - ICD9: 401.1, ICD10: I10 (primary diagnosis) Target BP 140/90 or less. The pt is on chronic medications. Blood pressure controlled on current medications. 2. 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 - ICD9: 414.01, ICD10: I25.10 Four-vessel CABG in 2020. The patient is on chronic medication. He is not complaining of chest pain. 3. Mixed hyperlipidemia - ICD9: 272.2, ICD10: E78.2 Patient is on atorvastatin 20 mg daily. Managed by primary care physician. 4. Pacemaker - ICD9: V45.01, ICD10: Z95.0 The patient has a dual-chamber pacemaker. Normal function by today's interrogation. We will plan to monitor the device by every 3-month checks and as needed. 5. CHB (complete heart block) (HCC) - ICD9: 426.0, ICD10: I44.2 Chronic, the patient has a dual-chamber pacemaker. Stable. 6. Chronic atrial fibrillation (HCC) - ICD9: 427.31, ICD10: I48.20 On, asymptomatic atrial fibrillation. Heart rate control and anticoagulation strategy. Heart rate controlled by virtue of AV node dysfunction. The patient is on Xarelto. 7. 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 The pt is not complaining of any signs and symptoms of bleeding. The patient was instructed to call with any problems. 8. Numbness Patient complains of numbness in his lower extremities. He states it happens when he sits in the chair watching TV in the evenings. He had it happens frequently. He does not have this when he is up moving around or sleeping. It sounds like he might have some type of nerve issue in his back. He will discuss this with his primary care provider. documented in this encounter [facility] 02-29-2024 History of Presen t illness Narrative Dual Pacer Report In Office Check Date: February 29, 2024 Time: 11:20 AM Devices: Implants Lead Ra Lead Biotronik-09/17/2022 - Implanted Heart Model/Cat number: ADAIR Pena [id number] Serial number: [id number] Indigo Mixer: EnerTrac Lot number: LEFT AXILLARY VEIN Size: Right Atrial Pacing Lead Rv Lead Biotronik-09/17/2022 - Implanted Heart Model/Cat number: ADAIR Pena [id number] Serial number: [id number] Indigo Mixer: EnerTrac Lot number: LEFT CEPHALIC VEIN Size: Right Ventricular Pacing Lead Pacemaker Dual Pacer Biotronik-09/17/2022 - Implanted (Left) Chest Wall Model/Cat number: CHELIORA [id number] Serial number: [id number] Indigo Mixer: EnerTrac Lot number: INITIAL DUAL PACER IMPLANT. 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; LVEF 68%; 4V Cabg 07/22/2021; TIMMY Ligation, Post Cabg Afib; Xarelto; Symptoms: None Underlying Rhythm: AFIB Last Interrogation Date: 07-23-2023 Estimated Remaining Longevity: 12 yrs 2 months until [place] Dependency: No Interrogation Performed by: Stehpany Abraham LPN Programming Parameters Mode: VVI Lower Rate: 60 Upper Track: N/a Upper Sensor: N/a Paced AV Delay: N/a Sensed AV Delay: N/a Atrial Refractory: N/a Mode Switch: N/a Atrial: Chronic AFIB Right Ventricle: Threshold: 0.7 V @ 0.2 msec Programmed amp/PW: 1.0 V @ 0.75 msec R wave: 11.3 mV Sensitivity: auto Impedance: 429 ohms RV pacin% Episodes: Atrial Fib count: n/a Atrial burden: n/a Mode Switch episodes: n/a Ventricular Fibrillation count: 0 Fast Ventricular Tachycardia count: 0 Slow Ventricular Tachycardia: 0 NSVT: 0 High Ventricular Rates: 1 Summary: Normal device function. Normal pacing and sensing threshold. Battery: 12 yrs 2 months until [place]. Histogram: ok. Atrial episodes: n/a. Ventricular episodes: 1 High Ventricular Rate 4 seconds long. Changes: none. Follow up: 3 month remote, 6 months device check and provider appointment. View External Cardiology - Commercial Loan Manager Strips [ID [id number]] documented in this encounter [facility] 02-20-2024 Miscellaneous Notes Called and spoke with Alexandra and notified of Dr. Pleitez's information, recommendations and orders. Order for TSH and this phone encounter with new med orders faxed to Alexandra at [facility] at [phone]. I sent new prescription to [facility]. Routine, no marinelli needed. Have patient come for repeat TSH in 3 months. Pt returned call and notified to change dosage of Synthroid. Pt states he lives at [facility] and that we need to notify them of med change. Called and spoke with nurse Alexandra and notified of medication Synthroid dosage change. Pt uses a mail order service [facility] where prescription was sent. That will probably take 7-10 days until they get it. Alexandra is asking if Dr. Pleitez wants to wait to change dose when new med arrives or if he wants to change dose now. If now, will need a 10-14 day supply to their [facility]. Then she can start the new med change now. If provider wants med to start now, please print order and fax to Alexandra at [phone] and she will forward it to [facility] to get filled to take now. Please call Alexandra back at [facility] with provider's response. [phone] Left a message for pt to call the office and ask to speak to a nurse. Yenny Gibson LPN ----- Message from Ronaldo Pleitez MD sent at 02/20/2024 10:15 AM EDT ----- Vitamin D and B12 okay. Thyroid suppressed. Reduce Synthroid dose to 100 mcg daily. documented in this encounter [facility] 02-15-2024 History of Presen t illness Narrative CDM Telephonic Outreach Provider Action/FYI CHF Assisted living staff assist with meals, medications, wts, and BPs Spoke with patient who reports that he is feeling well and has no needs at this time. Appointments for Next 60 Days Date Time Provider Location Dept Phone 02/18/2024 11:15 AM [facility] [place] Borja [phone] 02/29/2024 2:00 PM [facility] [address] [facility] [facility] [phone] 02/29/2024 2:20 PM IRAM JOHNSON [facility] [phone] 03/17/2024 11:15 AM [facility] [place] Borja [phone] 03/17/2024 11:50 AM BALJINDER GALLOWAY Marva Borja [phone] Contacted for: Routine Telephonic Outreach Contact made with patient: Yes Patient identified by name and date of . Discussed care with patient Are you experiencing any new or worsening symptoms you need to talk about today? No Disease Specific Do you check your blood pressure at home? No assisted living staff check Do you have new or worsening shortness of breath with activity? No Do you have new or worsening trouble breathing while lying flat? No Do you have new or worsening swelling of legs, feet or ankles? No Do you check your daily weight at home? No assisted living staff check Based on treating engineer helper, the following disposition is advised: No symptoms or symptoms present, not severe. Routed to: No Action Needed MARCELO Education Provided this Outreach: No Ginna Em RN February 15, 2024 10:55 AM documented in this encounter [facility] 01-22-2024 Instructions Ronaldo Pleitez MD - 01/22/2024 11:50 AM EDT SEE LASIX DOSE CHANGE. documented in this encounter [facility] 01-22-2024 History of Presen t illness Narrative This note was created using [email or web address]. Subjective Srini Luis is a 88 year old male was here with his daughter. He was doing well, living in assisted living. He still drove to do some of his local errands. His edema was controlled, and he was interested in reducing his furosemide dose from 40 mg in AM and 20 mg at noon, to 20 mg in AM and noon. He needed refills of folic acid and atorvastatin, and we reconciled his medications. Review of Systems Constitutional: Negative for fatigue, fever and unexpected weight change. HENT: Negative for congestion, sore throat and trouble swallowing. Eyes: Negative for visual disturbance. Respiratory: Negative for cough, shortness of breath and wheezing. Cardiovascular: Positive for leg swelling. Negative for chest pain and palpitations. Gastrointestinal: Negative for abdominal pain, blood in stool, constipation, diarrhea, nausea and vomiting. Genitourinary: Negative for difficulty urinating and dysuria. Musculoskeletal: Positive for gait problem. Negative for arthralgias. Skin: Negative for wound. Neurological: Negative for dizziness, tremors, numbness and headaches. 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 Do not exceed 3 grams (3000mg) in 24 hours ADULT LOW DOSE ASPIRIN ORAL Take by mouth. furosemide (LASIX) 40 mg tablet Take 1 tablet by mouth two times a day. AM and noon. levothyroxine (SYNTHROID) 112 mcg tablet Take 1 tablet by mouth once daily. rivaroxaban (XARELTO) 20 mg tablet Take 1 tablet by mouth daily with dinner. Resume Sep 20 2022 nitroglycerin sublingual (NITROQUICK) 0.4 mg SL tablet nitroglycerin 0.4 mg sublingual tablet cyanocobalamin (VITAMIN B-12) 1,000 mcg tab Take 1,000 mcg by mouth once daily. polyethylene glycol 3350 (MIRALAX, GLYCOLAX) 17 gram packet Take 17 g by mouth once daily as needed for constipation. Dissolve dose in 4 - 8 ounces of liquid and take as directed. MULTIVITAMIN TABLET Take 1 tablet by mouth once daily. folic acid 1 mg tablet Take 1 tablet by mouth once daily. atorvastatin (LIPITOR) 20 mg tablet Take 1 tablet by mouth once daily. sennosides/docusate sodium (SENNA PLUS ORAL) Take 2 tablets by mouth as needed. No current facility-administered medications for this visit. Objective BP 118/64 (BP Site: Left Arm, BP Position: Sitting, BP Cuff Size: Regular Adult) Pulse 68 Resp 18 Ht 168.9 cm (5' 6.5) Wt 75.4 kg (166 lb 4.8 oz) BMI 26.44 kg/m Physical Exam Constitutional: General: He is not in acute distress. Appearance: He is not ill-appearing. HENT: Head: Normocephalic. Nose: Nose normal. Eyes: General: No scleral icterus. Conjunctiva/sclera: Conjunctivae normal. Neck: Vascular: No carotid bruit. Cardiovascular: Rate and Rhythm: Normal rate and regular rhythm. Heart sounds: No murmur heard. No gallop. Pulmonary: Effort: No respiratory distress. Breath sounds: Examination of the right-lower field reveals rales. Examination of the left-lower field reveals rales. Rales present. No decreased breath sounds, wheezing or rhonchi. Abdominal: General: There is no distension. Tenderness: There is no abdominal tenderness. Musculoskeletal: General: No tenderness. Right lower le+ Edema present. Left lower le+ Edema present. Lymphadenopathy: Cervical: No cervical adenopathy. Neurological: General: No focal deficit present. Mental Status: He is alert. Gait: Gait normal. Psychiatric: Behavior: Behavior normal. Assessment and Plan 1. Medicare annual wellness visit, subsequent - ICD9: V70.0, ICD10: Z00.00 (primary diagnosis) See wellness note. 2. Mixed hyperlipidemia - ICD9: 272.2, ICD10: E78.2 - Controlled - Continue current medications - Counseled on healthy diet and regular exercise - ATORVASTATIN 20 MG TABLET. New tablet. No need to split 40 mg tablet. - LIPID PANEL BASIC 3. Lymphedema of both lower extremities - ICD9: 457.1, ICD10: I89.0 Dose reduced to 20 mg BID. - FUROSEMIDE 40 MG TABLET 4. Chronic heart failure with preserved ejection fraction (HCC) - ICD9: 428.9, ICD10: I50.32 - HFpEF 50+ - Compensated - FUROSEMIDE 40 MG TABLET. 1/2 tablet BID. - XR CHEST 2V FRONTAL/LAT 5. Hypothyroidism, unspecified type - ICD9: 244.9, ICD10: E03.9 - continue current dose of Synthroid. - TSH BLD 6. Primary hypertension - ICD9: 401.9, ICD10: I10 - Controlled - Continue current medications 7. B12 deficiency - ICD9: 266.2, ICD10: E53.8 Recheck. - VITAMIN B12 BLOOD 8. Vitamin D deficiency - ICD9: 268.9, ICD10: E55.9 Recheck. - VITAMIN D 25 HYDROXY Ronaldo Pleitez MD Images from the original note were not included. Srini Luis is a 88 year old male here for a Medicare wellness visit. Medicare Health Risk Assessment General Health Good Exercise: Minutes/Day 30 min Exercise: Days/Week 3 days Alcohol: Daily Use 2-4 times a month Alcohol: Drinks/Day 1 or 2 Alcohol: 6 or more drinks Never Feel off balance No Concerns: Teeth/Dentures No Concerns: Sexual function No Troubled by feelings None of the above Frequency: Eating healthy diet Several days ADLs requiring help Dressing Safety precautions in home/vehicle Yes Smoke, vape, chews tobacco No Difficulty hearing No Difficulty seeing No Current Providers Specialists: I have reviewed specialist-related care of the patient in the medical record. Current care team: Patient Care Team: Ronaldo Pleitez MD as PCP - General (Internal Medicine) Israel Minor MD (Cardiology) Baljinder Galloway DO (Hematology). Conrad De La Rosa DPM (Podiatry) [facility]. [place] Miranda MD. Medical/Family history review Reviewed and updated problem list, medical/surgical/family/social history, medications, and allergies. Opioid use review Opioid Medications (last 90 days) No data to display Depression screening Depression Screening PHQ-2 Score 12/11/2022 0 Depression screening tool completed and reviewed. Based on score and interview, patient is not at risk for depression. Screening tool discussed with patient, and I recommended no further intervention at this time. Cognitive screening Mini Cog Score: 5 Cognitive screening reviewed and no further action needed (score 3-5) Functional Observation Was the patient's Timed Up & Go test unsteady or ? 12 seconds? No Advance Care Planning Surrogate decision maker documented and/or advance directives scanned in chart Measurements BP 118/64 Pulse 68 Resp 18 Ht 5' 6.5 (1.69m) Wt 166 lb 4.8 oz (75.4kg) BMI 26.44 kg/(m^2). Additional screenings: No results found. Assessment/Plan Medicare annual wellness visit, subsequent (Z00.00) - Counseled on healthy diet and regular exercise - Fall avoidance information provided - Personalized prevention plan provided - Vaccines reviewed. documented in this encounter [facility] 01-01-2024 History of Presen t illness Narrative CDM Telephonic Outreach Provider Action/FYI CHF Assisted living staff assist with meals, medications, wts, and BPs Left Appointments for Next 60 Days Date Time Provider Location Dept Phone 01/21/2024 11:15 AM LAB [facility] [place] LopesMarva Jonh [phone] 01/22/2024 11:00 AM RONALDO PLEITEZ [facility] [place] [phone] 02/09/2024 1:00 PM [facility] [place] [id number] [facility] [phone] 02/09/2024 1:40 PM [facility] [phone] 02/18/2024 11:15 AM [facility] [place] [phone] Contacted for: Routine Telephonic Outreach Contact made with patient: No, left message. Ginna Em RN January 01, 2024 2:06 PM documented in this encounter [facility] 12-24-2023 History of Presen t illness Narrative Diagnosis: 1) CMML. HPI: The patient is an 87-year-old male with a past medical history significant for coronary artery disease (four-vessel CABG), stroke, paroxysmal atrial fibrillation, hypertension, hypothyroidism, heart block (PPM) who underwent a work-up for macrocytic anemia. Patient had a history of B12 deficiency associated with macrocytic anemia. However he had become progressively more anemic and was seen by Dr. Rowell and underwent bone marrow biopsy in 10/2022. Cytogenetics (see separate report) revealed a normal male karyotype: 46,XY[20]. The myeloid NGS panel (see separate report) identified the following variants (with VAFs): SF3B1 p.H662Q (41.7%) and TET2 p.[id number]*6 (46%). 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 The threshold for absolute monocytosis in CMML has since been lowered to 0.5 k/uL (from 1.0 k/uL in the 2016 WHO), which accounts for the discrepancy. Further, the category of CMML-0 (which this neoplasm would have otherwise been classified as) has been eliminated by both classification systems in lieu of a two-tiered blast-based grading scheme (of CMML-1 and -2 only). The patient had a single CBC since 2019 (specifically 08/24/2022) in which there was not a relative monocytosis; this is attributable to transiently increased neutrophils in the setting of acute stroke/ischemia, and is here regarded as an outlier. Normal cytogenetics. Moved from [place] to assisted living at [facility]. Established care here. Drives. Current therapy: 1) Azacitidine. Cycle 10/14/2023. Most recent cycle 05/2023. He was also diagnosed with acute DVT of the internal jugular vein on the right. This occurred despite anticoagulation with rivaroxaban. Port was removed. He was admitted to [facility] 05/15 through 05/18 for gram-negative bacteremia attributed to right lower extremity cellulitis. He was initially treated with IV broad-spectrum antibiotics including Zosyn and discharged on Levaquin. Blood cultures cleared prior to discharge. Presents for ongoing oncologic management. Interim history: No complaints today. No acute illnesses since last seen. Verified today: No dyspnea with walking. Uses cane. Drives. No unusual bleeding. Enjoys walking but limited by lumbar spinal stenosis. 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; Confirmed Blk below His by His Bundle Electrogram Chronic atrial fibrillation ([facility]) Chronic heart failure with preserved ejection fraction ([facility]) 06/16/2023 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 ([facility]) 12/01/2022 CVA (cerebral vascular accident) ([facility]) 08/22/2022 Diverticulosis History of anemia Hx of CABG 07/22/2021 4 vessel CABG with ORNELAS-LAD, SVG-RI, SVG-OM, and SVG-RCA in [place] Hx of colonoscopy 09/27/2015 no reported polyps per patient recollection Hypertension Hypothyroidism USP 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 2017 when he's been off medication Nocturnal hypoxemia On oxygen at night Osteoarthritis, generalized Pacemaker 09/17/2022 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 PAST SURGICAL HISTORY Procedure Laterality Date ANKLE RIGHT OP SURGERY Right 12/18/2020 Dr Arreola [facility] ARTHROPLASTY TOTAL SHOULDER 11/09/2008 right ARTHROSCOPY OF JOINT UNLISTED 1999 Elbow right CABG (4) VEIN GRAFTS & ARTERIAL GRAFT(S) 07/21/2021 In [facility] COLONOSCOPY FLX DX W/COLLJ SPEC WHEN PFRMD 09/01/2005 Colonoscopy COLONOSCOPY FLX DX W/COLLJ SPEC WHEN PFRMD 09/27/2015 Colonoscopy REMOVAL OF TONSILS,<12 Y/O S $ DUAL CHMBR PACER [id number] Left 09/17/2022 Dual Pacer (HealthRallyronik) for High Grade AV Blk below His; 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 ALLERGIES Allergen Reactions Simvastatin Other: See Comments Elevated CK Current Outpatient Medications Medication Sig ACETAMINOPHEN ORAL Take by mouth. Do not exceed 3 grams (3000mg) in 24 hours ADULT LOW DOSE ASPIRIN ORAL Take by mouth. predniSONE (DELTASONE) 10 mg tablet Take 4 tabs daily for 3 days, then 2 tabs daily for 3 days, then 1 tab daily for 3 days with food. atorvastatin (LIPITOR) 20 mg tablet Take 20 mg by mouth once daily. furosemide (LASIX) 40 mg tablet Take 1 tablet by mouth two times a day. AM and noon. levothyroxine (SYNTHROID) 112 mcg tablet Take 1 tablet by mouth once daily. rivaroxaban (XARELTO) 20 mg tablet Take 1 tablet by mouth daily with dinner. Resume Sep 20 2022 sennosides/docusate sodium (SENNA PLUS ORAL) Take 2 tablets by mouth as needed. nitroglycerin sublingual (NITROQUICK) 0.4 mg SL tablet nitroglycerin 0.4 mg sublingual tablet cyanocobalamin (VITAMIN B-12) 1,000 mcg tab Take 1,000 mcg by mouth once daily. polyethylene glycol 3350 (MIRALAX, GLYCOLAX) 17 gram packet Take 17 g by mouth once daily as needed for constipation. Dissolve dose in 4 - 8 ounces of liquid and take as directed. MULTIVITAMIN TABLET Take 1 tablet by mouth once daily. No current facility-administered medications for this visit. Social History Tobacco Use Smoking status: Former Types: Cigarettes Quit date: 08/11/1989 Years since quittin.3 Smokeless tobacco: Never Tobacco comments: quit 18-19 years ago Vaping Use Vaping Use: Never used Substance Use Topics Alcohol use: Not Currently Comment: rare glass of wine. Drug use: No Family History Problem Relation Age of Onset Heart Mother Heart Father CHF Colon Cancer No Family History Prostate Cancer No Family History Blood Clots No Family History NO PE OR DVT ROS: Constitutional: Denies episodes of fever and night sweats. Neuro: Denies TRACEY, vertigo, dizziness and imbalance. Denies symptoms of neuropathy. HEENT: No recent change in voice, vision or hearing. Resp: Denies cough, wheeze and hemoptysis. Denies shortness of breath at rest. Denies FELDMAN (with walking). CVS: Denies exertional chest pain, PND and orthopnea. Uses b/l compression stockings. GI: Denies dysgeusia. Denies symptoms of stomatitis. Denies dysphagia and odynophagia. Denies reflux, n/v, change in bowel habits and abdominal pain. : Denies dysuria or gross hematuria. No symptoms of bladder outlet obstruction. Endo: Denies hot flashes. Denies polyuria and polydipsia. Denies heat and cold intolerance. Musculoskeletal: Lower back pain when walking. Derm: Denies rash. Denies jaundice and diffuse pruritis. Heme: See HPI. Psych: Normal mood. PHYSICAL EXAM: Vitals: Blood pressure 125/84, pulse 65, temperature 36.8 C (98.2 F), temperature source Temporal, weight 73.7 kg (162 lb 8 oz), SpO2 97%. Well-appearing and in no acute distress. EYES: Sclerae are anicteric bilaterally. ENT: Oral mucosa is unremarkable. There is no sign of thrush or mucositis. LYMPHATIC: There is no palpable cervical, supraclavicular or axillary adenopathy. RESPIRATORY: Inspiratory breath sounds are of normal intensity in all manning. No rales, wheezes or rhonchi. CARDIOVASCULAR: Rhythm is regular on today's exam. ABDOMEN: The abdomen is nondistended Extremities: He has chronic appearing swelling of both LEs extending to the dorsum of both feet. SKIN: No jaundice. 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 -Treatment complicated by right IJ thrombus despite being on rivaroxaban and Gram negative sepsis from LE cellulitis. -Daughter here today. Discussed goals of care. We will continue supportive care. Consider ABRAHAM if Hg drifts lower. -Reviewed labs. Hemoglobin has remained stable around 9.5 g/dL for the last 6 months. No thrombocytopenia. Plan: -Monthly CBC to assess for transfusion needs. -Okay to continue ASA and rivaroxaban. -OV in about 3 months. Portions of this documentation were copied and pasted from previous office visit notes in order to provide a cohesive continuity of the history. The note has been reviewed and edited and updated as necessary. I spent a total of 15 minutes on the date of the service which included preparing to see the patient, [id number] patient care, completing clinical documentation, obtaining and/or reviewing separately obtained history, performing a medically appropriate examination, counseling and educating the patient/family/caregiver, ordering medications, tests, or procedures, communicating with other HCPs (not separately reported), and communicating results to the patient/family/caregiver. Baljinder Galloway DO documented in this encounter [facility] 12-24-2023 Miscellaneous Notes Spoke with daughter and message below given. Also contacted Adrien Quinones with results. Perry asked to have a copy faxed to [phone]. Done. Yenny Gibson LPN ----- Message from Ronaldo Pleitez MD sent at 12/24/2023 9:29 AM EST ----- Xray right elbow with no acute bone abnormality. documented in this encounter [facility] 12-23-2023 History of Presen t illness Narrative Radiology Service Progress Note PATIENT NAME: Srini Luis DATE OF SERVICE: December 23, 2023 TIME: 12:38 PM PATIENT IDENTITY VERIFICATION COMPLETED USING TWO (2) IDENTIFIERS: Name and Date of confirmed by patient verbally. FALL SCREENING: Has the patient had 2 falls in the last year or 1 fall with injury or currently using an Ambulatory Assistive Device (Walker, Cane, Wheelchair, Crutches, etc.)? Yes, Patient High Risk for Falls What interventions were put in place to prevent falls during this visit? Offered Assistance with Transfers/Clothing, Instructed Patient to Remain Seated (Not on Exam Table) Until Exam, and Increased Observations by Caregivers PATIENT GENDER DATA: Male PATIENT RELEVANT IMPLANT DATA REVIEWED: Yes PATIENT PRESENTS WITH AN IMPLANTABLE OR ATTACHED COLOR REPAIRER: No RADIOLOGY DEPARTMENT: General X-ray: Exam(s) Completed: Upper Extremity X-Ray(s): Elbow, right PERIPHERAL IV DATA: Not applicable SIGNED BY: RT Shirley(R) December 23, 2023 12:38 PM documented in this encounter [facility] 12-23-2023 History of Presen t illness Narrative Images from the original note were not included. This note was created using Magineter. Subjective Patient presents with: Right arm pain Srini Luis is a 88 year old male. He developed pain, swelling, and limited range of motion of the right elbow 3 days ago. He had no fall or injury. He had a similar episode in November of the same elbow, for which he only took Tylenol, and symptoms resolved over 6 to 7 days. He did not seek medical attention in November. He had remote surgery on this elbow. Review of Systems Constitutional: Negative for chills and fever. Skin: Negative for rash and wound. 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) Cva (Cerebral Vascular Accident) ([facility]) Chb (Complete Heart Block) ([facility]) Correction Current Use of Anticoagulant Mds (Myelodysplastic Syndrome) ([facility]) Myasthenia Gravis ([facility]) Lymphedema of Both Lower Extremities Chronic Heart Failure With Preserved Ejection Fraction ([facility]) Vertebral Artery Occlusion, Left 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[facility]) Status Post Ligation of Left Atrial Appendage Rbbb Pvc's (Premature Ventricular Contractions) Osteoarthritis, Generalized Nocturnal Hypoxemia Hx of Colonoscopy Benign Hypertension Acute Stroke Due to Ischemia ([facility]) Diverticulosis History of Anemia Chronic Atrial Fibrillation ([facility]) Current Outpatient Medications Medication Sig ACETAMINOPHEN ORAL Take by mouth. Do not exceed 3 grams (3000mg) in 24 hours ADULT LOW DOSE ASPIRIN ORAL Take by mouth. atorvastatin (LIPITOR) 20 mg tablet Take 20 mg by mouth once daily. furosemide (LASIX) 40 mg tablet Take 1 tablet by mouth two times a day. AM and noon. levothyroxine (SYNTHROID) 112 mcg tablet Take 1 tablet by mouth once daily. rivaroxaban (XARELTO) 20 mg tablet Take 1 tablet by mouth daily with dinner. Resume Sep 20 2022 sennosides/docusate sodium (SENNA PLUS ORAL) Take 2 tablets by mouth twice daily. nitroglycerin sublingual (NITROQUICK) 0.4 mg SL tablet nitroglycerin 0.4 mg sublingual tablet cyanocobalamin (VITAMIN B-12) 1,000 mcg tab Take 1,000 mcg by mouth once daily. polyethylene glycol 3350 (MIRALAX, GLYCOLAX) 17 gram packet Take 17 g by mouth once daily as needed for constipation. Dissolve dose in 4 - 8 ounces of liquid and take as directed. MULTIVITAMIN TABLET Take 1 tablet by mouth once daily. Ferrous Fumarate 324 mg (106 mg iron) tab Take 1 tablet by mouth once daily. Per [facility] readmission fax (Patient not taking: Reported on 12/23/2023) folic acid 1 mg tablet Take 1 mg by mouth once daily. (Patient not taking: Reported on 12/23/2023) No current facility-administered medications for this visit. Objective BP 100/58 (BP Site: Left Arm, BP Position: Sitting, BP Cuff Size: Large Adult) Pulse 60 Temp 36.2 C (97.2 F) (Temporal) Resp 20 Wt 73.9 kg (163 lb) BMI 25.53 kg/m Physical Exam Constitutional: Appearance: He is not ill-appearing or diaphoretic. Cardiovascular: Pulses: Normal pulses. Pulmonary: Effort: Pulmonary effort is normal. Musculoskeletal: Right shoulder: No tenderness. Normal range of motion. Right upper arm: No swelling, deformity or tenderness. Right elbow: Swelling present. No effusion or lacerations. Decreased range of motion. Tenderness present. Right forearm: No deformity or tenderness. Right wrist: Normal. Right hand: Normal. Normal strength. Normal sensation. Arms: Comments: Diffuse soft tissue swelling, mostly anteromedial, warm, no cellulitis, no effusion, no abscess. Neurological: Mental Status: He is alert. Sensory: No sensory deficit. Motor: No weakness. Comments: Ambulatory with cane. Assessment and Plan 1. Right elbow pain - ICD9: 719.42, ICD10: M25.521 (primary diagnosis) Consistent with gout or pseudogout. - XR ELBOW SPECIAL VIEWS AP/LAT/OTHER RIGHT - PREDNISONE 10 MG TABLET 2. Monoarthritis of elbow, right - ICD9: 716.62, ICD10: M13.121 - XR ELBOW SPECIAL VIEWS AP/LAT/OTHER RIGHT - PREDNISONE 10 MG TABLET Discussed medication dosage, usage, goals of therapy, and side effects. Expect improvement in 2-3 days. Ronaldo Pleitez MD documented in this encounter [facility] 12-21-2023 Miscellaneous Notes Medication list updated. Liza Shipman LPN I checked in his history of medications. Looks like he reported to the [place] at the time of OV he was not taking Lipitor so I took it off the med list. Baljinder Galloway DO Daughter questioning why Lipitor was discontinued at OV 09/30/2023? Liza Shipman LPN Pts daughter had a medication question she wanted to discuss. States retirement didn't have a medication she thought he was on listed in their records. documented in this encounter [facility] 12-18-2023 Miscellaneous Notes Daughter reports pt changed insurance at the beginning of the year. Now needs Rx's sent to [facility]. Pended. Patient has been identified by name and date of : Yes, Provider Chidi Date 12-18-23 Time 1:51 pm DaughterLiza phones for refill(s): Requested Prescriptions Pending Prescriptions Disp Refills furosemide (LASIX) 40 mg tablet 180 tablet 3 Sig: Take 1 tablet by mouth two times a day. AM and noon. levothyroxine (SYNTHROID) 112 mcg tablet 90 tablet 3 Sig: Take 1 tablet by mouth once daily. rivaroxaban (XARELTO) 20 mg tablet 90 tablet 3 Sig: Take 1 tablet by mouth daily with dinner. Resume Sep 20 2022 Date of last office visit in primary care: 07/24/2023 Date of next office visit in primary care: 01/22/2024 Please advise. Thank you. Robyn Hollis RN. documented in this encounter [facility] 10-07-2023 History of Presen t illness Narrative CDM Telephonic Outreach Provider Action/FYI 2nd TO attempt CHF Assisted living staff assist with meals, medications, wts, and BPs. Spoke with patient who reports that he is feeling well and has no needs at this time. Updated goals, falls, ADL assessments. Appointments for Next 60 Days Date Time Provider Location Dept Phone 10/29/2023 10:30 AM LAB [facility] [place] [phone] 11/06/2023 1:50 PM [facility] [address] [facility] [phone] 11/26/2023 10:30 AM LAB [facility] [place] [phone] Contacted for: Routine Telephonic Outreach Contact made with patient: Yes Patient identified by name and date of . Discussed care with patient Are you experiencing any new or worsening symptoms you need to talk about today? No Disease Specific Do you check your blood pressure at home? Yes staff check Do you have new or worsening shortness of breath with activity? No Do you have new or worsening trouble breathing while lying flat? No Do you have new or worsening swelling of legs, feet or ankles? No Do you check your daily weight at home? Yes, Have you noticed a sudden gain in weight greater than three pounds in a day or three pounds in a week? No Based on treating engineer helper, the following disposition is advised: No symptoms or symptoms present, not severe. Routed to: No Action Needed MARCELO Education Provided this Outreach: No Ginna Em RN October 07, 2023 11:12 AM documented in this encounter [facility] 09-30-2023 History of Presen t illness Narrative Diagnosis: 1) CMML. HPI: The patient is an 87-year-old male with a past medical history significant for coronary artery disease (four-vessel CABG), stroke, paroxysmal atrial fibrillation, hypertension, hypothyroidism, heart block (PPM) who underwent a work-up for macrocytic anemia. Patient had a history of B12 deficiency associated with macrocytic anemia. However he had become progressively more anemic and was seen by Dr. Rowell and underwent bone marrow biopsy in 10/2022. Cytogenetics (see separate report) revealed a normal male karyotype: 46,XY[20]. The myeloid NGS panel (see separate report) identified the following variants (with VAFs): SF3B1 p.H662Q (41.7%) and TET2 p.[id number]*6 (46%). 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 The threshold for absolute monocytosis in CMML has since been lowered to 0.5 k/uL (from 1.0 k/uL in the 2016 WHO), which accounts for the discrepancy. Further, the category of CMML-0 (which this neoplasm would have otherwise been classified as) has been eliminated by both classification systems in lieu of a two-tiered blast-based grading scheme (of CMML-1 and -2 only). The patient had a single CBC since 2019 (specifically 08/24/2022) in which there was not a relative monocytosis; this is attributable to transiently increased neutrophils in the setting of acute stroke/ischemia, and is here regarded as an outlier. Normal cytogenetics. Moved from [place] to [facility]. Established care here. Drives. Current therapy: 1) Azacitidine. Cycle 10/14/2023. Most recent cycle 05/2023. He was also diagnosed with acute DVT of the internal jugular vein on the right. This occurred despite anticoagulation with rivaroxaban. Port was removed. He was admitted to [facility] 05/15 through 05/18 for gram-negative bacteremia attributed to right lower extremity cellulitis. He was initially treated with IV broad-spectrum antibiotics including Zosyn and discharged on Levaquin. Blood cultures cleared prior to discharge. Presents for ongoing oncologic management. Interim history: No complaints today. No acute illnesses since last seen. [place] is serving meals in room due to a case of Covid--Dining mc closed temporarily closed. No dyspnea with walking. Uses cane. Drives. No unusual bleeding. Enjoys walking but limited by lumbar spinal stenosis. Constipation can be an issue. Eats a lot of prunes. Using Miralax prn. 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 ([facility]) 12/01/2022 CVA (cerebral vascular accident) ([facility]) 08/22/2022 Diverticulosis History of anemia Hx of CABG 07/22/2021 4 vessel CABG with ORNELAS-LAD, SVG-RI, SVG-OM, and SVG-RCA in [place] Hx of colonoscopy 09/27/2015 no reported polyps per patient recollection Hypertension Hypothyroidism USP 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 2017 when he's been off medication Nocturnal hypoxemia On oxygen at night Osteoarthritis, generalized Pacemaker 09/17/2022 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 PAST SURGICAL HISTORY Procedure Laterality Date ANKLE RIGHT OP SURGERY Right 12/18/2020 Dr Arreola [facility] ARTHROPLASTY TOTAL SHOULDER 11/09/2008 right ARTHROSCOPY OF JOINT UNLISTED Elbow right CABG (4) VEIN GRAFTS & ARTERIAL GRAFT(S) 07/21/2021 In [facility] [place] COLONOSCOPY FLX DX W/COLLJ SPEC WHEN PFRMD 09/01/2005 Colonoscopy COLONOSCOPY FLX DX W/COLLJ SPEC WHEN PFRMD 09/27/2015 Colonoscopy REMOVAL OF TONSILS,<12 Y/O S $ DUAL CHMBR PACER [id number] Left 09/17/2022 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 ALLERGIES Allergen Reactions Simvastatin Other: See Comments Elevated CK Current Outpatient Medications Medication Sig furosemide (LASIX) 40 mg tablet Take 1 tablet by mouth twice daily. AM and Noon. Ferrous Fumarate 324 mg (106 mg iron) tab Take 1 tablet by mouth once daily. [facility] read[facility] fax rivaroxaban (XARELTO) 20 mg tablet Take 1 tablet by mouth daily with dinner. Resume Sep 20 2022 sennosides/docusate sodium (SENNA PLUS ORAL) Take 2 tablets by mouth twice daily. folic acid 1 mg tablet Take 1 mg by mouth once daily. levothyroxine (SYNTHROID) 112 mcg tablet Take 1 tablet by mouth once daily. nitroglycerin sublingual (NITROQUICK) 0.4 mg SL tablet nitroglycerin 0.4 mg sublingual tablet cyanocobalamin (VITAMIN B-12) 1,000 mcg tab Take 1,000 mcg by mouth once daily. polyethylene glycol 3350 (MIRALAX, GLYCOLAX) 17 gram packet Take 17 g by mouth once daily as needed for constipation. Dissolve dose in 4 - 8 ounces of liquid and take as directed. MULTIVITAMIN TABLET Take 1 tablet by mouth once daily. atorvastatin (LIPITOR) 40 mg tablet Take 0.5 tablets by mouth once daily. New lower dose as of Jul 24 2022 (Patient not taking: Reported on 08/06/2023) ferrous sulfate 325 mg (65 mg iron) tablet Take 325 mg by mouth once daily. Daily since DC from Hospital 05/18 (Patient not taking: Reported on 08/06/2023) aspirin, enteric coated (ASPIRIN, ENTERIC COATED) 81 mg EC tablet Take 81 mg by mouth once daily. (Patient not taking: Reported on 08/06/2023) cholecalciferol (VITAMIN D3) 1,000 unit tab tablet Take 1,000 Units by mouth once daily. (Patient not taking: Reported on 08/06/2023) No current facility-administered medications for this visit. Social History Tobacco Use Smoking status: Former Types: Cigarettes Quit date: 08/11/1989 Years since quittin.1 Smokeless tobacco: Never Tobacco comments: quit 18-19 years ago Vaping Use Vaping Use: Never used Substance Use Topics Alcohol use: Not Currently Comment: rare glass of wine. Drug use: No Family History Problem Relation Age of Onset Heart Mother Heart Father CHF Colon Cancer No Family History Prostate Cancer No Family History Blood Clots No Family History NO PE OR DVT ROS: Constitutional: Denies episodes of fever and night sweats. Neuro: Denies TRACEY, vertigo, dizziness and imbalance. Denies symptoms of neuropathy. HEENT: No recent change in voice, vision or hearing. Resp: Denies cough, wheeze and hemoptysis. Denies shortness of breath at rest. Denies FELDMAN (with walking). CVS: Denies exertional chest pain, PND and orthopnea. Uses b/l compression stockings. GI: Denies dysgeusia. Denies symptoms of stomatitis. Denies dysphagia and odynophagia. Denies reflux, n/v, change in bowel habits and abdominal pain. : Denies dysuria or gross hematuria. No symptoms of bladder outlet obstruction. Endo: Denies hot flashes. Denies polyuria and polydipsia. Denies heat and cold intolerance. Musculoskeletal: Lower back pain when walking. Derm: Denies rash. Denies jaundice and diffuse pruritis. Heme: See HPI. Psych: Normal mood. PHYSICAL EXAM: Vitals: Blood pressure 107/56, pulse (!) 59, temperature 36.9 C (98.5 F), temperature source Temporal, resp. rate 16, weight 73 kg (161 lb), SpO2 99 %. Well-appearing and in no acute distress. EYES: Sclerae are anicteric bilaterally. ENT: Oral mucosa is unremarkable. There is no sign of thrush or mucositis. LYMPHATIC: There is no palpable cervical, supraclavicular or axillary adenopathy. RESPIRATORY: Inspiratory breath sounds are of normal intensity in all manning. No rales, wheezes or rhonchi. CARDIOVASCULAR: Rhythm is regular on today's exam. ABDOMEN: The abdomen is nondistended Extremities: He has chronic appearing swelling of both LEs extending to the dorsum of both feet. SKIN: No jaundice. 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 -Treatment complicated by right IJ thrombus despite being on rivaroxaban and Gram negative sepsis from LE cellulitis. -Other daughter here today. Discussed goals of care. We will continue supportive care. Consider ABRAHAM if Hg drifts lower. -Reviewed labs. Hemoglobin remains stable at 9.3 g/dL. Plan: -Stop oral iron supplement. -Monthly CBC to assess for transfusion needs. -OV in about 3 months. Portions of this documentation were copied and pasted from previous office visit notes in order to provide a cohesive continuity of the history. The note has been reviewed and edited and updated as necessary. I spent a total of 20 minutes on the date of the service which included preparing to see the patient, [id number] patient care, completing clinical documentation, obtaining and/or reviewing separately obtained history, performing a medically appropriate examination, counseling and educating the patient/family/caregiver, ordering medications, tests, or procedures, communicating with other HCPs (not separately reported), and communicating results to the patient/family/caregiver. Baljinder Galloway DO documented in this encounter [facility] 09-07-2023 History of Presen t illness Narrative CDM Telephonic Outreach Provider Action/FYI CHF Assisted living staff assist with meals, medications, wts, and BPs. Spoke with patient who reports that he is feeling well and has no needs at this time. Reviewed upcoming appointment. Appetite is good in the mornings and tapers off later in the day but patient is not losing wt. Appointments for Next 60 Days Date Time Provider Location Dept Phone 09/30/2023 9:30 AM LAB [facility] [place] Borja [phone] 09/30/2023 9:50 AM BALJINDER GALLOWAY [phone] Contacted for: Routine Telephonic Outreach Contact made with patient: Yes Patient identified by name and date of . Discussed care with patient Are you experiencing any new or worsening symptoms you need to talk about today? No Disease Specific Do you check your blood pressure at home? No Do you have new or worsening shortness of breath with activity? No Do you have new or worsening trouble breathing while lying flat? No Do you have new or worsening swelling of legs, feet or ankles? No Do you check your daily weight at home? No Based on treating engineer helper, the following disposition is advised: No symptoms or symptoms present, not severe. Routed to: No Action Needed MARCELO Education Provided this Outreach: No Ginna Em RN September 07, 2023 3:02 PM documented in this encounter [facility] 07-31-2023 Miscellaneous Notes Patient is agreeable to stopping his metoprolol. I will repor PATENT AGENT to [place] again in 1 week. Left message to return my call. Have him stop the metoprolol. Check the pacing in 1 week. One week update. You stopped his digoxin to decrease ventricular pacing. He was 88% PATENT AGENT now he is 80% PATENT AGENT. documented in this encounter [facility] 07-29-2023 History of Presen t illness Narrative [facility] Telephonic Outreach Provider Action/MARIA ELENAI CHF Spoke with patient who reports that he is feeling well and has no needs at this time. His appetite is good for breakfast but tends to taper off with later meals. He is drinking plenty of fluids. Suggested he could try a supplemental drink. States his legs are skinny. Assisted living staff assist with meals, medications, wts, and BPs. Reviewed upcoming appts. Appointments for Next 60 Days Date Time Provider Location Dept Phone 08/06/2023 11:45 AM LAB [facility] [place] [phone] 08/06/2023 12:10 PM BALJINDER GALLOWAY [phone] Contacted for: Routine Telephonic Outreach Contact made with patient: Yes Patient identified by name and date of . Discussed care with patient Are you experiencing any new or worsening symptoms you need to talk about today? No Disease Specific Do you check your blood pressure at home? No Do you have new or worsening shortness of breath with activity? No Do you have new or worsening trouble breathing while lying flat? No Do you have new or worsening swelling of legs, feet or ankles? No Do you check your daily weight at home? Yes, but done at assisted living Have you noticed a sudden gain in weight greater than three pounds in a day or three pounds in a week? No Based on treating engineer helper, the following disposition is advised: No symptoms or symptoms present, not severe. Routed to: No Action Needed MARCELO Education Provided this Outreach: No Ginna Em RN July 29, 2023 2:12 PM documented in this encounter [facility] 07-24-2023 History of Presen t illness Narrative CC: Patient presents with: Follow Up HPI Srini Luis is a 87 year old male who presents today for above. He was last seen 06/12 to establish care. Reported lymphedema and oozing from left leg. Wraps ordered by previous PCP were not being done. He had also been prescribed Lasix 40 mg BID but he was only taking 60 mg in the morning due to urinary frequency. Medication changes made at 06/12 appointment: take Lasix 40 mg in the AM and 20 mg in the early afternoon. He has been doing this but still affected by urinary frequency that is interfering with quality of life. He is wearing compression socks instead of CITLALLI wraps and lymphedema seems to be well controlled. Denies any other concerns today. 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 CVA (cerebral vascular accident) ([facility]) 08/22/2022 Diverticulosis History of anemia Hx of CABG 07/22/2021 4 vessel CABG with ORNELAS-LAD, SVG-RI, SVG-OM, and SVG-RCA in [place] Hx of colonoscopy 09/27/2015 no reported polyps per patient recollection Hypertension Hypothyroidism 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 2017 when he's been off medication Nocturnal hypoxemia On oxygen at night Osteoarthritis, generalized Pacemaker 09/17/2022 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 PAST SURGICAL HISTORY Procedure Laterality Date ANKLE RIGHT OP SURGERY Right 12/18/2020 Dr Arreola [facility] ARTHROPLASTY TOTAL SHOULDER 11/09/2008 right ARTHROSCOPY OF JOINT UNLISTED Elbow right CABG (4) VEIN GRAFTS & ARTERIAL GRAFT(S) 07/21/2021 In [facility] [place] COLONOSCOPY FLX DX W/COLLJ SPEC WHEN PFRMD 09/01/2005 Colonoscopy COLONOSCOPY FLX DX W/COLLJ SPEC WHEN PFRMD 09/27/2015 Colonoscopy REMOVAL OF TONSILS,<12 Y/O S $ DUAL CHMBR PACER [id number] Left 09/17/2022 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 ALLERGIES Simvastatin MEDICATIONS furosemide (LASIX) 40 mg tablet Take 1 tablet by mouth twice daily. AM and Noon. Ferrous Fumarate 324 mg (106 mg iron) tab Take 1 tablet by mouth once daily. [facility] read[facility] fax rivaroxaban (XARELTO) 20 mg tablet Take 1 tablet by mouth daily with dinner. Resume Sep 20 2022 sennosides/docusate sodium (SENNA PLUS ORAL) Take 2 tablets by mouth twice daily. folic acid 1 mg tablet Take 1 mg by mouth once daily. metoprolol tartrate, short acting, (LOPRESSOR) 25 mg tablet Take 12.5 mg by mouth twice daily. New dose as of 05-26-23 (readmit orders) levothyroxine (SYNTHROID) 112 mcg tablet Take 1 tablet by mouth once daily. nitroglycerin sublingual (NITROQUICK) 0.4 mg SL tablet nitroglycerin 0.4 mg sublingual tablet cyanocobalamin (VITAMIN B-12) 1,000 mcg tab Take 1,000 mcg by mouth once daily. atorvastatin (LIPITOR) 40 mg tablet Take 0.5 tablets by mouth once daily. New lower dose as of Jul 24 2022 ferrous sulfate 325 mg (65 mg iron) tablet Take 325 mg by mouth once daily. Daily since DC from Hospital 05/18 polyethylene glycol 3350 (MIRALAX, GLYCOLAX) 17 gram packet Take 17 g by mouth once daily as needed for constipation. Dissolve dose in 4 - 8 ounces of liquid and take as directed. aspirin, enteric coated (ASPIRIN, ENTERIC COATED) 81 mg EC tablet Take 81 mg by mouth once daily. cholecalciferol (VITAMIN D3) 1,000 unit tab tablet Take 1,000 Units by mouth once daily. MULTIVITAMIN TABLET Take 1 tablet by mouth once daily. FAMILY HISTORY Problem Relation Age of Onset Heart Mother Heart Father CHF Colon Cancer No Family History Prostate Cancer No Family History Blood Clots No Family History NO PE OR DVT Social History Tobacco Use Smoking status: Former Types: Cigarettes Quit date: 08/11/1989 Years since quittin.9 Smokeless tobacco: Never Tobacco comments: quit 18-19 years ago Vaping Use Vaping Use: Never used Substance Use Topics Alcohol use: Not Currently Comment: rare glass of wine. Drug use: No PHYSICAL EXAM BP 124/72 Pulse (!) 58 Resp 16 Wt 73.5 kg (162 lb) SpO2 97% BMI 25.37 kg/m General Appearance: well appearing, in no acute distress, alert Pysch: mood and affect broad and appropriate DATA REVIEWED: Most recent labs ASSESSMENT/PLAN: 1. Lymphedema of both lower extremities - ICD9: 457.1, ICD10: I89.0 (primary diagnosis) Improved with compression socks. Patient states the CITLALLI wraps are too time consuming and prefers the socks. Other measures to minimize edema were discussed. 2. Chronic heart failure with preserved ejection fraction (HCC) - ICD9: 428.9, ICD10: I50.32 Patient requesting to decrease Lasix dose. Will discuss with PCP if he can take just the 40 mg in the morning and the extra 20 mg as needed only. Patient agreeable to this if PCP is okay with it. 3. Encounter for immunization - ICD9: V03.89, ICD10: Z23 - INFLUENZA VACCINE, PRSV FREE, AGE 65+ YR, HIGH DOSE, QUADRIVALENT (FLUZONE HIGH-DOSE) Prescription instructions reviewed with patient as applicable. Potential red flag symptoms discussed with the patient. Reviewed appropriate action plan to take if red flag symptoms occur. Patient agreeable to treatment plan. During this patient visit I have spent approximately 20 minutes in counseling regarding treatment options, medications, and coordinating care. Arabella Bates APRN.MAURICIO documented in this encounter [facility] 07-23-2023 History of Presen t illness Narrative [facility] Ronaldo Pleitez MD SUBJECTIVE: Srini Luis is a 87 year old male who is here today for a follow-up visit. The patient is doing reasonly well from a cardiovascular standpoint. He complains of intermittent fatigue. He has lower extremity edema, left greater than right. This is an ongoing issue and is no worse than in the past. He denies shortness of breath, chest pain, palpitations, PND, orthopnea, syncope, or near syncope. 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 ([facility]) 12/01/2022 CVA (cerebral vascular accident) ([facility]) 08/22/2022 Diverticulosis History of anemia Hx of CABG 07/22/2021 4 vessel CABG with ORNELAS-LAD, SVG-RI, SVG-OM, and SVG-RCA in [place] Hx of colonoscopy 09/27/2015 no reported polyps per patient recollection Hypertension Hypothyroidism USP 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 2017 when he's been off medication Nocturnal hypoxemia On oxygen at night Osteoarthritis, generalized Pacemaker 09/17/2022 Dual Pacer (HealthRallyronik) for High Grade AV Blk below His; 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 PAST SURGICAL HISTORY Procedure Laterality Date ANKLE RIGHT OP SURGERY Right 12/18/2020 Dr Arreola [facility] ARTHROPLASTY TOTAL SHOULDER 11/09/2008 right ARTHROSCOPY OF JOINT UNLISTED Elbow right CABG (4) VEIN GRAFTS & ARTERIAL GRAFT(S) 07/21/2021 In [facility] [place] COLONOSCOPY FLX DX W/COLLJ SPEC WHEN PFRMD 09/01/2005 Colonoscopy COLONOSCOPY FLX DX W/COLLJ SPEC WHEN PFRMD 09/27/2015 Colonoscopy REMOVAL OF TONSILS,<12 Y/O S $ DUAL CHMBR PACER [id number] Left 09/17/2022 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 FAMILY HISTORY Problem Relation Age of Onset Heart Mother Heart Father CHF Colon Cancer No Family History Prostate Cancer No Family History Blood Clots No Family History NO PE OR DVT SOCIAL HISTORY: Social History Tobacco Use Smoking status: Former Types: Cigarettes Quit date: 08/11/1989 Years since quittin.9 Smokeless tobacco: Never Tobacco comments: quit 18-19 years ago Vaping Use Vaping Use: Never used Substance Use Topics Alcohol use: Not Currently Comment: rare glass of wine. Drug use: No ALLERGIES: Simvastatin CURRENT MEDICATIONS: Current Outpatient Medications Medication Sig furosemide (LASIX) 40 mg tablet Take 1 tablet by mouth twice daily. AM and Noon. Ferrous Fumarate 324 mg (106 mg iron) tab Take 1 tablet by mouth once daily. [facility] read[facility] fax rivaroxaban (XARELTO) 20 mg tablet Take 1 tablet by mouth daily with dinner. Resume Sep 20 2022 sennosides/docusate sodium (SENNA PLUS ORAL) Take 2 tablets by mouth twice daily. folic acid 1 mg tablet Take 1 mg by mouth once daily. metoprolol tartrate, short acting, (LOPRESSOR) 25 mg tablet Take 12.5 mg by mouth twice daily. New dose as of 05-26-23 (readmit orders) levothyroxine (SYNTHROID) 112 mcg tablet Take 1 tablet by mouth once daily. nitroglycerin sublingual (NITROQUICK) 0.4 mg SL tablet nitroglycerin 0.4 mg sublingual tablet cyanocobalamin (VITAMIN B-12) 1,000 mcg tab Take 1,000 mcg by mouth once daily. atorvastatin (LIPITOR) 40 mg tablet Take 0.5 tablets by mouth once daily. New lower dose as of Jul 24 2022 ferrous sulfate 325 mg (65 mg iron) tablet Take 325 mg by mouth once daily. Daily since DC from Hospital 05/18 polyethylene glycol 3350 (MIRALAX, GLYCOLAX) 17 gram packet Take 17 g by mouth once daily as needed for constipation. Dissolve dose in 4 - 8 ounces of liquid and take as directed. aspirin, enteric coated (ASPIRIN, ENTERIC COATED) 81 mg EC tablet Take 81 mg by mouth once daily. cholecalciferol (VITAMIN D3) 1,000 unit tab tablet Take 1,000 Units by mouth once daily. MULTIVITAMIN TABLET Take 1 tablet by mouth once daily. No current facility-administered medications for this visit. Review of Systems Constitutional: Positive for fatigue. Negative for activity change and fever. Respiratory: Negative for apnea, cough, chest tightness, shortness of breath, wheezing and stridor. Cardiovascular: Positive for leg swelling. Negative for chest pain and palpitations. Gastrointestinal: Negative for abdominal distention, diarrhea and vomiting. Musculoskeletal: Negative for joint swelling, neck pain and neck stiffness. Skin: Negative for color change, pallor and rash. Neurological: Negative for dizziness, syncope, weakness, light-headedness and numbness. Hematological: Does not bruise/bleed easily. Psychiatric/Behavioral: Negative for agitation, behavioral problems and confusion. The patient is not nervous/anxious. All other systems reviewed and are negative. PHYSICAL EXAMINATION: 07/23/23 1022 BP: 110/60 BP Position: Sitting Pulse: 69 Weight: 73.9 kg (163 lb) Height: 170.2 cm (5' 7) Last 3 Encounter BP Readings: Date: BP: 05/29/2023 119/70 05/13/2023 140/64 05/11/2023 110/56 Last 3 Encounter Pulse Readings: Date: Pulse: 05/29/2023 62 05/13/2023 62 05/11/2023 60 Last 3 Encounter Wt Readings: Date: Wt: 05/29/2023 81 kg (178 lb 8 oz) 05/11/2023 83.9 kg (185 lb) 05/05/2023 84.1 kg (185 lb 8 oz) Physical Exam Vitals and nursing note reviewed. Constitutional: General: He is not in acute distress. Appearance: Normal appearance. He is not toxic-appearing. HENT: Head: Normocephalic and atraumatic. Nose: Nose normal. Mouth/Throat: Mouth: Mucous membranes are moist. Neck: Vascular: No carotid bruit. Cardiovascular: Rate and Rhythm: Normal rate and regular rhythm. Pulses: Normal pulses. Heart sounds: Normal heart sounds. No murmur heard. No friction rub. No gallop. Pulmonary: Effort: Pulmonary effort is normal. No respiratory distress. Breath sounds: Normal breath sounds. No stridor. No wheezing, rhonchi or rales. Chest: Chest wall: No tenderness. Abdominal: General: Abdomen is flat. There is no distension. Palpations: Abdomen is soft. There is no mass. Tenderness: There is no abdominal tenderness. Musculoskeletal: General: No swelling. Cervical back: Normal range of motion. No muscular tenderness. Right lower leg: Edema present. Left lower leg: Edema present. Comments: Lower extremity edema, left greater than right Skin: General: Skin is warm and dry. Capillary Refill: Capillary refill takes less than 2 seconds. Coloration: Skin is not jaundiced or pale. Findings: No bruising or rash. Neurological: General: No focal deficit present. Mental Status: He is alert and oriented to person, place, and time. Mental status is at baseline. Motor: No weakness. Gait: Gait normal. Psychiatric: Mood and Affect: Mood normal. Behavior: Behavior normal. Thought Content: Thought content normal. Judgment: Judgment normal. Diagnostic results: Pacemaker check: Summary: Normal device function. Normal pacing and sensing threshold. Battery: 12 yrs 7 months until [place]. Histogram: ok. Atrial episodes: Chronic AFIB. Ventricular episodes: none. Changes: Changed him from DDD to VVI d/t chronic AFIB. ASSESSMENT/PLAN: 1. Benign hypertension - ICD9: 401.1, ICD10: I10 Target BP 130/80 or less. The pt is on chronic medications. Blood pressure well controlled on current medications. 2. 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 - ICD9: 414.01, ICD10: I25.10 4 Vessel CABG in 2020. The patient is on chronic medication. He is not complaining of chest pain. Instructed to continue same medications and call with chest pain or shortness of breath. 3. Mixed hyperlipidemia - ICD9: 272.2, ICD10: E78.2 Patient is on atorvastatin 40 mg daily. Managed by primary care physician. 4. Chronic atrial fibrillation I48.20 Chronic, asymptomatic atrial fibrillation. Heart rate control and anticoagulation strategy. Rate is controlled. The patient is on Xarelto. Patient has complete heart block, we will stop digoxin. We will make sure his heart rate is controlled by remote pacemaker check in 1 week. 5. USP current use of anticoagulant - ICD9: V58.61, ICD10: Z79.01 Patient is on Xarelto 20 mg daily. The pt is not complaining of any signs and symptoms of bleeding. The patient was instructed to call with any problems. 6. Pacemaker - ICD9: V45.01, ICD10: Z95.0 The patient has a dual-chamber pacemaker. Normal function by today's interrogation. We will plan to monitor the device by every 3-month checks and as needed. 7. CHB (complete heart block) (HCC) - ICD9: 426.0, ICD10: I44.2 Chronic, the patient has a dual-chamber pacemaker. Stable. documented in this encounter [facility] 07-23-2023 History of Presen t illness Narrative Dual Pacer Report In Office Check Date: July 23, 2023 Time: 8:34 AM Devices: Implants Lead Ra Lead Biotronik-09/17/2022 - Implanted Heart Model/Cat number: ADAIR [id number] Serial number: [id number] Indigo Mixer: EnerTrac Lot number: LEFT AXILLARY VEIN Size: Right Atrial Pacing Lead Rv Lead Biotronik-09/17/2022 - Implanted Heart Model/Cat number: ADAIR S [id number] Serial number: [id number] Indigo Mixer: EnerTrac Lot number: LEFT CEPHALIC VEIN Size: Right Ventricular Pacing Lead Pacemaker Dual Pacer Biotronik-09/17/2022 - Implanted (Left) Chest Wall Model/Cat number: EDORA [id number] Serial number: [id number] Indigo Mixer: EnerTrac Lot number: INITIAL DUAL PACER IMPLANT. 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; LVEF 68%; 4V Cabg 07/22/2021; TIMMY Ligation, Post Cabg Afib; Xarelto; Symptoms: None Underlying Rhythm: Chronic AFIB Last Interrogation Date: 01-13-2023 Estimated Remaining Longevity: 10 yrs 11 months until [place] before turned VVI Dependency: No Interrogation Performed by: Stephany Abraham LPN Programming Parameters Mode: DDD-VVI Lower Rate: 60 Upper Track: 140 Upper Sensor: 130 Paced AV Delay: 180 Sensed AV Delay: 140 Atrial Refractory: ind Mode Switch: 160 Additional Device Information -VS percent: 13% -PATENT AGENT percent: 81% AP-VS percent: 0% AP-PATENT AGENT percent: 4% Atrial: Threshold: Chronic AFIB Programmed amp/PW: N/a P wave: 0.6 mV Sensitivity: N/a Impedance: 273 ohms Pacing percent: N/a Right Ventricle: Threshold: 0.5 V @ 0.2 msec Programmed amp/PW: 1.0 V @ 0.75 msec R wave: 12.4 mV Sensitivity: auto Impedance: 409 ohms RV pacin% Episodes: Atrial Fib count: Chronic AFIB Atrial burden: 100% Mode Switch episodes: 0 Ventricular Fibrillation count: 0 Fast Ventricular Tachycardia count: 0 Slow Ventricular Tachycardia: 0 NSVT: 0 Summary: Normal device function. Normal pacing and sensing threshold. Battery: 12 yrs 7 months until [place]. Histogram: ok. Atrial episodes: Chronic AFIB. Ventricular episodes: none. Changes: Changed him from DDD to VVI d/t chronic AFIB. Follow up: 3 month remote, 6 months device check and provider appointment. View External Cardiology - [employer]ps [ID [id number]] documented in this encounter [facility] 07-16-2023 History of Past i llness Narrative Problem Noted Date Diagnosed Date Resolved Date RBBB 07/16/2023 01/22/2024 Nocturnal hypoxemia 07/16/2023 01/22/20 24 Overview: On oxygen at night Diverticulosis 07/16/2023 01/22/2024 Thrombosis of right internal jugular vein 05/05/2023 01/22/2024 Overview: Port a Cath removed. Myasthenia gravis 04/20/2023 01/22/2024 Overview: Last seen by neurology July 29, 2017. 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 2017 when he's been off medication Nocturnal hypoxemia 01/05/2023 06/12/20 23 Overview: On oxygen at night Myasthenia gravis 01/05/2023 03/25/2023 Overview: Last seen by neurology July 29, 2017. 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; Confirmed Blk below His by His Bundle Electrogram Symptomatic bradycardia 09/15/202209/09 Weakness generalized 09/15/2022 024 Malnutrition of moderate degree 09/05/2022 12/24/2023 Acute ischemic stroke 08/26/20222022 Vertebral artery occlusion, left 08/25/2022 06/16/2023 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 08/22/2022 06/16/2023 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 08/22/2022 01/22/2024 Overview: Pontine infarction, R>L CHF (congestive heart failur e), NYHA class I, acute on chronic, diastolic 07/04/2022 08/26/2022 Benign hypertension 08/14/2021 06/16/20 23 Benign hypertension 08/14/2021 01/22/20 24 Status post ligation of left atrial appendage 07/10/20 21 06/16/2023 Overview: At time of CABG PAF (paroxysmal atrial fibrillation) 11/09/2020 07/23/2023 Overview: Post CABG atrial fibrillation Macrocytosis 07/11/2020 06/16/2023 Hx of colonoscopy 09/27/2015 06/16/2023 Overview: no reported polyps per patient recollection Hx of colonoscopy 09/27/2015 01/22/2024 Overview: no reported polyps per patient recollection S/P shoulder replacement 02/08/201506/2023 Xerosis cutis 12/14/2012 01/02/2015 Pruritus 12/14/2012 01/02/2015 Actinic skin damage 12/14/2012 01/02/20 15 Solar lentigo 12/14/2012 01/02/2015 Myasthenia gravis 04/19/2012 09/15/2022 Essential hypertension, benign 01/12/2012 01/22/2024 Back pain 01/09/2012 06/16/2023 Viral warts, unspecified 09/29/2010 Irritated//Inflamed Seborrheic Keratosis 09/29/2010 01/02/2015 Insomnia 08/13/2010 06/16/2023 Erectile dysfunction 08/13/2010 023 Follow-up examination, follo wing unspecified surgery 06/11/2009 08/14/2009 Osteoarthrosis, unspecified whether generalized or localized, other specified sites 12/14/2008 06/16/2023 Primary localized osteoarthr osis, shoulder region 09/21/2008 06/16/2023 Overview: rt. shoulder PVC's (premature ventricular contractions) 09/21/2008 01/22/2024 ACTINIC DAMAGE///SOLAR SKIN DAMAGE NOS 04/07/2008 01/02/2015 Dermatitis due to cosmetics 04/07/2008 01/02/2015 ACTINIC DAMAGE///CHR SOLAR SKIN DAMAGE NOS 04/07/2008 01/02/2015 Other seborrheic keratosis 04/07/2008 0 01/02/2015 SOLAR LENTIGINES///DYSCHROMIA OTHER 04/07/2008 01/02/2015 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 01/02/2015 Generalized osteoarthrosis 06/05/2006 0 01/22/2024 Special screening for malign ant neoplasms, colon 08/11/2005 01/02/2015 Follow-up examination following surgery 10/31/2003 01/02/2015 Injury to ulnar nerve 09/21/20032022 Diverticulosis 06/16/2023 History of anemia 06/16/2023 Lumbar stenosis 06/16/2023 Overview: MRI 2019 , severe LCS L2-3 Osteoarthritis, generalized 06/16/2023 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 of ant icoagulants with INR goal of 2.0-3.0 09/15/2022 Nocturnal hypoxemia 08/29/20 22 Overview: On oxygen at night PVC's (premature ventricular contractions) 06/16/2023 RBBB 06/16/2023 documented as of this encounter (statuses as of 01/22/2024) [facility] History of Past illness Narrative* Problem Noted Date Diagnosed Date Resolved Date RBBB 07/16/2023 01/22/2024 Nocturnal hypoxemia 07/16/2023 01/22/20 24 Overview: On oxygen at night Diverticulosis 07/16/2023 01/22/2024 Thrombosis of right internal jugular vein 05/05/2023 01/22/2024 Overview: Port a Cath removed. Myasthenia gravis 04/20/2023 01/22/2024 Overview: Last seen by neurology July 29, 2017. 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 2017 when he's been off medication Nocturnal hypoxemia 01/05/2023 06/12/20 23 Overview: On oxygen at night Myasthenia gravis 01/05/2023 03/25/2023 Overview: Last seen by neurology July 29, 2017. 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; Confirmed Blk below His by His Bundle Electrogram Symptomatic bradycardia 09/15/202209/09 Weakness generalized 09/15/2022 024 Malnutrition of moderate degree 09/05/2022 12/24/2023 Acute ischemic stroke 08/26/20222022 Vertebral artery occlusion, left 08/25/2022 06/16/2023 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 08/22/2022 06/16/2023 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 08/22/2022 01/22/2024 Overview: Pontine infarction, R>L CHF (congestive heart failur e), NYHA class I, acute on chronic, diastolic 07/04/2022 08/26/2022 Benign hypertension 08/14/2021 06/16/20 23 Benign hypertension 08/14/2021 01/22/20 24 Status post ligation of left atrial appendage 07/10/20 21 06/16/2023 Overview: At time of CABG PAF (paroxysmal atrial fibrillation) 11/09/2020 07/23/2023 Overview: Post CABG atrial fibrillation Macrocytosis 07/11/2020 06/16/2023 Hx of colonoscopy 09/27/2015 06/16/2023 Overview: no reported polyps per patient recollection Hx of colonoscopy 09/27/2015 01/22/2024 Overview: no reported polyps per patient recollection S/P shoulder replacement 02/08/201506/2023 Xerosis cutis 12/14/2012 01/02/2015 Pruritus 12/14/2012 01/02/2015 Actinic skin damage 12/14/2012 01/02/20 15 Solar lentigo 12/14/2012 01/02/2015 Myasthenia gravis 04/19/2012 09/15/2022 Essential hypertension, benign 01/12/2012 01/22/2024 Back pain 01/09/2012 06/16/2023 Viral warts, unspecified 09/29/2010 Irritated//Inflamed Seborrheic Keratosis 09/29/2010 01/02/2015 Insomnia 08/13/2010 06/16/2023 Erectile dysfunction 08/13/2010 023 Follow-up examination, follo wing unspecified surgery 06/11/2009 08/14/2009 Osteoarthrosis, unspecified whether generalized or localized, other specified sites 12/14/2008 06/16/2023 Primary localized osteoarthr osis, shoulder region 09/21/2008 06/16/2023 Overview: rt. shoulder PVC's (premature ventricular contractions) 09/21/2008 01/22/2024 ACTINIC DAMAGE///SOLAR SKIN DAMAGE NOS 04/07/2008 01/02/2015 Dermatitis due to cosmetics 04/07/2008 01/02/2015 ACTINIC DAMAGE///CHR SOLAR SKIN DAMAGE NOS 04/07/2008 01/02/2015 Other seborrheic keratosis 04/07/2008 0 01/02/2015 SOLAR LENTIGINES///DYSCHROMIA OTHER 04/07/2008 01/02/2015 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 01/02/2015 Generalized osteoarthrosis 06/05/2006 0 01/22/2024 Special screening for malign ant neoplasms, colon 08/11/2005 01/02/2015 Follow-up examination following surgery 10/31/2003 01/02/2015 Injury to ulnar nerve 09/21/20032022 Diverticulosis 06/16/2023 History of anemia 06/16/2023 Lumbar stenosis 06/16/2023 Overview: MRI 2019 , severe LCS L2-3 Osteoarthritis, generalized 06/16/2023 USP current use of ant icoagulants with INR goal of 2.0-3.0 09/15/2022 Nocturnal hypoxemia 08/29/20 22 Overview: On oxygen at night PVC's (premature ventricular contractions) 06/16/2023 RBBB 06/16/2023 documented as of this encounter (statuses as of 02/15/2024) [facility] History of Past illness Narrative* Problem Noted Date Diagnosed Date Resolved Date RBBB 07/16/2023 01/22/2024 Nocturnal hypoxemia 07/16/2023 01/22/20 24 Overview: On oxygen at night Diverticulosis 07/16/2023 01/22/2024 Cellulitis of right leg 05/14/2023 04/01/2024 Overview: with sepsis, bacteremia Thrombosis of right internal jugular vein 05/05/2023 01/22/2024 Overview: Port a Cath removed. Myasthenia gravis 04/20/2023 01/22/2024 Overview: Last seen by neurology July 29, 2017. 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 2017 when he's been off medication Nocturnal hypoxemia 01/05/2023 06/12/20 Overview: On oxygen at night Myasthenia gravis 01/05/2023 03/25/2023 Overview: Last seen by neurology July 29, 2017. 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; Confirmed Blk below His by His Bundle Electrogram Symptomatic bradycardia 09/15/2022 11 Weakness generalized 09/15/2022 024 Malnutrition of moderate degree 09/05/2022 12/24/2023 Acute ischemic stroke 08/26/20222022 Vertebral artery occlusion, left 08/25/2022 06/16/2023 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 08/22/2022 06/16/2023 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 08/22/2022 01/22/2024 Overview: Pontine infarction, R>L CHF (congestive heart failur e), NYHA class I, acute on chronic, diastolic 07/04/2022 08/26/2022 Benign hypertension 08/14/2021 06/16/20 23 Benign hypertension 08/14/2021 01/22/20 24 Status post ligation of left atrial appendage 07/10/20 21 06/16/2023 Overview: At time of CABG PAF (paroxysmal atrial fibrillation) 11/09/2020 07/23/2023 Overview: Post CABG atrial fibrillation Macrocytosis 07/11/2020 06/16/2023 Hx of colonoscopy 09/27/2015 06/16/2023 Overview: no reported polyps per patient recollection Hx of colonoscopy 09/27/2015 01/22/2024 Overview: no reported polyps per patient recollection S/P shoulder replacement 02/08/201506/2023 Xerosis cutis 12/14/2012 01/02/2015 Pruritus 12/14/2012 01/02/2015 Actinic skin damage 12/14/2012 01/02/20 15 Solar lentigo 12/14/2012 01/02/2015 Myasthenia gravis 04/19/2012 09/15/2022 Essential hypertension, benign 01/12/2012 01/22/2024 Back pain 01/09/2012 06/16/2023 Viral warts, unspecified 09/29/2010 Irritated//Inflamed Seborrheic Keratosis 09/29/2010 01/02/2015 Insomnia 08/13/2010 06/16/2023 Erectile dysfunction 08/13/2010 023 Follow-up examination, follo wing unspecified surgery 06/11/2009 08/14/2009 Osteoarthrosis, unspecified whether generalized or localized, other specified sites 12/14/2008 06/16/2023 Primary localized osteoarthr osis, shoulder region 09/21/2008 06/16/2023 Overview: rt. shoulder PVC's (premature ventricular contractions) 09/21/2008 01/22/2024 ACTINIC DAMAGE///SOLAR SKIN DAMAGE NOS 04/07/2008 01/02/2015 Dermatitis due to cosmetics 04/07/2008 01/02/2015 ACTINIC DAMAGE///CHR SOLAR SKIN DAMAGE NOS 04/07/2008 01/02/2015 Other seborrheic keratosis 04/07/2008 0 01/02/2015 SOLAR LENTIGINES///DYSCHROMIA OTHER 04/07/2008 01/02/2015 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 01/02/2015 Generalized osteoarthrosis 06/05/2006 0 01/22/2024 Special screening for malign ant neoplasms, colon 08/11/2005 01/02/2015 Follow-up examination following surgery 10/31/2003 01/02/2015 Injury to ulnar nerve 09/21/20032022 Diverticulosis 06/16/2023 History of anemia 06/16/2023 Lumbar stenosis 06/16/2023 Overview: MRI 2019 , severe LCS L2-3 Osteoarthritis, generalized 06/16/2023 USP current use of ant icoagulants with INR goal of 2.0-3.0 09/15/2022 Nocturnal hypoxemia 08/29/20 Overview: On oxygen at night PVC's (premature ventricular contractions) 06/16/2023 RBBB 06/16/2023 documented as of this encounter (statuses as of 02/20/2024) [facility] History of Present illness Narrative* Ginna Em, RN - 07/02/2023 8:02 AM EDT CDM Telephonic Outreach Provider Action/FYI 2nd TO attempt Left VM. CHF Appointments for Next 60 Days Date Time Provider Location Dept Phone 07/09/2023 1:30 PM [facility] [place] [phone] 07/23/2023 10:00 AM [facility] [address] [facility] [facility] [phone] 07/23/2023 10:40 AM IRAM JOHNSON [facility] [phone] 07/23/2023 1:30 PM [facility] [place] [phone] 07/24/2023 10:20 AM [facility] [place] [phone] 08/06/2023 11:45 AM [facility] [place] [phone] 08/06/2023 12:10 PM [facility] [phone] Contacted for: Routine Telephonic Outreach Contact made with patient: No, left message. Ginna Em RN July 02, 2023 2:35 PM [facility] Instructions* Patient Instructions* Ronaldo Pleitez MD - 06/12/2023 11:22 AM EDT See Hand written orders. [facility] History of Present illness Narrative* Ronaldo Pleitez MD - 06/12/2023 10:34 AM EDT This note was created using Magin[employer]. Subjective Patient presents with: Establish Care: From Israel Pruitt DO. Srini Luis is a 87 year old male seen with his daughter and POA. He just moved to [facility] from [place]. He was having some vague discomfort on his right leg today. This may be related to his low back issues. He was having oozing from his left leg with no trauma. He has chronic lymphedema. Previous PCP ordered CITLALLI wrapping but it seems this was not being done. At some point his furosemide was increased to 40 mg BID, but he did not tolerate this well due to frequency and nocturia. His current regimen was furosemide 60 mg every morning, but he complained of frequency in the morning. He was admitted earlier last month at the local hospital for right leg cellulitis and bacteremia. We retrieved some information. He was off antibiotics. Infectious disease follow up and referral to lymphedema clinic were recommended. 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 This was not discussed with hematology oncology. What was recently discussed was the cessation of chemotherapy. Patient was wondering what was next after stopping chemotherapy. Review of Systems Constitutional: Negative for appetite change, chills, fever and unexpected weight change. Respiratory: Negative for cough, shortness of breath and wheezing. Cardiovascular: Positive for leg swelling. Negative for chest pain and palpitations. Gastrointestinal: Negative for abdominal pain. Genitourinary: Negative for difficulty urinating. Musculoskeletal: Positive for gait problem. Skin: Positive for color change. Neurological: Negative for dizziness and headaches. 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/2022 CVA (cerebral vascular accident) ([facility]) 08/22/2022 Diverticulosis History of anemia Hx of CABG 07/22/2021 4 vessel CABG with ORNELAS-LAD, SVG-RI, SVG-OM, and SVG-RCA in [place] Hx of colonoscopy 09/27/2015 no reported polyps per patient recollection Hypertension Hypothyroidism 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 2017 when he's been off medication Nocturnal hypoxemia On oxygen at night Osteoarthritis, generalized Pacemaker 09/17/2022 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 PAF (paroxysmal atrial fibrillation) ([facility]) 2020 Post CABG atrial fibrillation Primary localized osteoarthrosis, shoulder region 09/21/2008 rt. shoulder PVC's (premature ventricular contractions) RBBB Spinal stenosis of lumbar region with neurogenic claudication 06/28/2009 Status post ligation of left atrial appendage 07/2021 At time of CABG Thrombosis of right internal jugular vein ([facility]) 05/05/2023 Port a Cath removed. 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 PAST SURGICAL HISTORY Procedure Laterality Date ANKLE RIGHT OP SURGERY Right 12/18/2020 Dr Elba Sherman [facility] ARTHROPLASTY TOTAL SHOULDER 11/09/2008 right ARTHROSCOPY OF JOINT UNLISTED [place] right CABG (4) VEIN GRAFTS & ARTERIAL GRAFT(S) 07/21/2021 In [facility] [place] COLONOSCOPY FLX DX W/COLLJ SPEC WHEN PFRMD 09/01/2005 Colonoscopy COLONOSCOPY FLX DX W/COLLJ SPEC WHEN PFRMD 09/27/2015 Colonoscopy PAST SURGICAL HISTORY OF 07/21/2021 Coronary Artery Bypass Graft x 4 REMOVAL OF TONSILS,<12 Y/O S $ DUAL CHMBR PACER [id number] Left 09/17/2022 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 Social History Tobacco Use Smoking status: Former Types: Cigarettes Quit date: 08/11/1989 Years since quittin.8 Smokeless tobacco: Never Tobacco comments: quit 18-19 years ago Vaping Use Vaping Use: Never used Substance Use Topics Alcohol use: Not Currently Comment: rare glass of wine. Drug use: No ALLERGIES Allergen Reactions Simvastatin Other: See Comments Elevated CK Current Outpatient Medications Medication Sig Ferrous Fumarate 324 mg (106 mg iron) tab Take 1 tablet by mouth once daily. Per [facility] readmission fax rivaroxaban (XARELTO) 20 mg tablet Take 1 tablet by mouth daily with dinner. Resume Sep 20 2022 sennosides/docusate sodium (SENNA PLUS ORAL) Take 2 tablets by mouth twice daily. folic acid 1 mg tablet Take 1 mg by mouth once daily. furosemide (LASIX) 40 mg tablet One plus a half tablet every morning as of May 21 2023 , new dose (Patient taking differently: Take 60 mg by mouth once daily. One plus a half tablet every morning asof May 21 2023 , new dose) digoxin (LANOXIN) 125 mcg (0.125 mg) tablet Take 1 tablet by mouth once daily. metoprolol tartrate, short acting, (LOPRESSOR) 25 mg tablet Take 12.5 mg by mouth twice daily. New dose as of 05-26-23 (readmit orders) levothyroxine (SYNTHROID) 112 mcg tablet Take 1 tablet by mouth once daily. nitroglycerin sublingual (NITROQUICK) 0.4 mg SL tablet nitroglycerin 0.4 mg sublingual tablet cyanocobalamin (VITAMIN B-12) 1,000 mcg tab Take 1,000 mcg by mouth once daily. atorvastatin (LIPITOR) 40 mg tablet Take 0.5 tablets by mouth once daily. New lower dose as of 2021 ferrous sulfate 325 mg (65 mg iron) tablet Take 325 mg by mouth once daily. Daily since DC from Hospital 05/18 polyethylene glycol 3350 (MIRALAX, GLYCOLAX) 17 gram packet Take 17 g by mouth once daily as neededfor constipation. Dissolve dose in 4 - 8 ounces of liquid and take as directed. aspirin, enteric coated (ASPIRIN, ENTERIC COATED) 81 mg EC tablet Take 81 mg by mouth once daily. cholecalciferol (VITAMIN D3) 1,000 unit tab tablet Take 1,000 Units by mouth once daily. MULTIVITAMIN TABLET Take 1 tablet by mouth once daily. No current facility-administered medications for this visit. Objective BP (P) 98/64 (BP Site: Left Arm, BP Position: Sitting, BP Cuff Size: Regular Adult) Pulse (P) 78 Wt (P) 77.1 kg (170 lb) BMI (P) 26.63 kg/m Physical Exam Constitutional: General: He is not in acute distress. Appearance: He is not diaphoretic. HENT: Head: Normocephalic. Pulmonary: Effort: No respiratory distress. Breath sounds: Examination of the right-lower field reveals rales. Examination of the left-lower field reveals rales. Rales present. No wheezing. Abdominal: General: There is no distension. Palpations: Abdomen is soft. Tenderness: There is no abdominal tenderness. Musculoskeletal: Right lower le+ Edema present. Left lower le+ Edema present. Skin: Comments: 1) Clear oozing from left lateral calf without wound or cut. 2) Residual erythema of the right leg. Neurological: General: No focal deficit present. Mental Status: He is alert. Gait: Gait abnormal. Psychiatric: Mood and Affect: Mood normal. Assessment and Plan 1. Lymphedema of both lower extremities - ICD9: 457.1, ICD10: I89.0 (primary diagnosis) - See printed orders. - CITLALLI wraps both legs 8am to 6 pm. - Lasix 40 mg in AM and 40 mg at noon. 2. Chronic heart failure with preserved ejection fraction (HCC) - ICD9: 428.9, ICD10: I50.32 See above. 3. PAF (paroxysmal atrial fibrillation) (HCC) - ICD9: 427.31, ICD10: I48.0 - On chronic anticoagulation. - POA was advised to discuss anticoagulation questions with hematology oncology. 4. 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- ICD9: 414.01, ICD10: I25.10 Stable. 5. 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 Follow up with hematology oncology. 6. History of bacteremia - ICD9: V12.09, ICD10: Z87.898 Resolved. Ronaldo Pleitez MD documented in this encounterMercy Health [facility]07-27-2023 History of Present illness Narrative* Ginna Em RN - 06/04/2023 8:22 AM EDT [facility] Telephonic Outreach Provider Vinnie/GILBERTO Spoke with patient who reports that he is feeling well and has no needs at this time. States he did have his port removed. Was hospitalized last month with LE cellulitis and saw his PCP after DC. He has support stockings but does not always have them on depending on if he can get someone to help him apply them in the morning. States his LE edema is mild and the redness has nearly cleared up. Instructed on elevation of LE and low salt intake. He lives in [facility] living where he reports he receives meals, medication administration,and nursing assessment of BPs and wts. No transportation or food insecurity needs found from asking SDOH questions. His daughter has been assisting to ensure that he has transportation to [facility]. CHF listed on PCP's 05/21/23 note. Appointments for Next 60 Days Date Time Provider Location Dept Phone 06/11/2023 1:30 PM LAB [facility] WSTR BEGLICA Borja [phone] 06/12/2023 10:00 AM RONALDO PLEITEZ [facility] MARVA [phone] 06/25/2023 1:30 PM LAB [facility] WSPAMELA Borja [phone] 07/09/2023 1:30 PM LAB [facility] VIKY Borja [phone] 07/23/2023 10:00 AM [facility] D[facility]ON [facility] [phone] 07/23/2023 10:40 AM IRAM JOHNSON [facility] [phone] 07/23/2023 1:30 PM LAB [facility] VIKY Borja [phone] Contacted for: Routine Telephonic Outreach Contact made with patient: Yes Patient identified by name and date of . Discussed care with patient Are you experiencing any new or worsening symptoms you need to talk about today? No Disease Specific Do you check your blood pressure at home? Yes, Enter readings: nursing staff check Do you have new or worsening shortness of breath with activity? No Do you have new or worsening trouble breathing while lying flat? No Do you have new or worsening swelling of legs, feet or ankles? No Do you check your daily weight at home? Yes, Have you noticed a sudden gain in weight greater than three pounds in a day or three pounds in a week? Nursing staff check Based on treating engineer helper, the following disposition is advised: No symptoms or symptoms present, not severe. Routed to: No Action Needed MARCELO Education Provided this Outreach: No Ginna Em RN June 04, 2023 2:52 PM documented in this encounterMercy Health [facility]07-21-2023 History of Present illness Narrative* Christa Gomez, RT(R) - 05/29/2023 4:20 PM EDT Radiology Service Progress Note PATIENT NAME: Srini Luis DATE OF SERVICE: May 29, 2023 TIME: 4:14 PM PATIENT IDENTITY VERIFICATION COMPLETED USING TWO (2) IDENTIFIERS: Name and Date of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 lymphatic drainage, prone for cellulitis. 05/18: Discussed with ID. Patient is just on Levaquin for 5 more days as prescribed by ID. Advised follow-up in outpatient wound/lymphedema clinic in 1week. #Acute hypoxia?resolved -Unclear etiology, there is unclear if it was fluid overload based on BNP of 972and chest x-ray appeared congested with lower extremity edema however he improved with antibiotics, fluids and 2 L of O2 -Chest x-ray was poor inspiration -We will obtain echocardiogram -I's and O's, daily weights 05/16: Hypoxia resolved. On ambient air. #Elevated lactic acid -as above -05/16: Acidosis improved. 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 # CKD stage IIIa -No baseline, unclear if this is elevated for him however BUN was somewhat up 31 -Trend BMP -Patient received IVF -05/16: Kidney function improving with IVF, patient does not meet criteria for DANE. Does not have CKD stage IIIb but most likely CKD stage IIIa 05/23: Creatinine 0.84. No DANE #Macrocytic anemia -Unclear baseline, monitor for signs or symptoms of bleeding -Continue oral iron supplementation -Daily CBC -05/16: Hemoglobin not big change, continue Xarelto. Folic acid started. 05/17: Iron supplement changed to every day. Continue folic acid. Prescriptions given. #Hypothyroidism -Continue Synthroid #DVT ppx: Xarelto Discharge medication reconciliation done. Discharge follow-up instructions completed. Discharge process discussed with the patient and all questions wereanswered to patient's satisfaction. Total time spent, exact 35 minutes on discharge meds reconciliation, examination, coordination of care with nurses and ancillary staff, review of imaging and blood test and discussion with the patient on follow-up instructions. Medications at Discharge Home Medications aspirin 81 mg tablet,delayed release 81 mg PO DAILY 04/09/23 cholecalciferol (vitamin D3) 25 mcg (1,000 unit) tablet 25 mcg PO DAILY 04/09/23 cyanocobalamin (vitamin B-12) 1,000 mcg capsule 1,000 mcg PO DAILY 04/09/23 furosemide 20 mg tablet (Lasix) 20 mg PO BID 04/09/23 levothyroxine 112 mcg tablet (Synthroid) 112 mcg PO DAILY 04/09/23 multivitamin 1 tab PO DAILY 04/09/23 polyethylene glycol 3350 17 gram oral powder packet 17 g PO DAILY PRN constipation 04/09/23 rivaroxaban 20 mg tablet (Xarelto) 20 mg PO QPM 04/09/23 atorvastatin 20 mg tablet 20 mg PO QHS 05/14/23 digoxin 125 mcg (0.125 mg) tablet 0.125 mg PO DAILY 05/14/23 metoprolol tartrate 25 mg tablet 12.5 mg PO BID 05/14/23 ferrous fumarate 325 mg (106 mg iron) tablet 325 mg PO DAILY 30 days #0 tabs 05/18/23 folic acid 1 mg tablet 1 mg PO BREAKFAST 30 days #30 tabs 05/18/23 levofloxacin 500 mg tablet 500 mg PO DAILY 6 days #6 tabs 05/18/23 polyethylene glycol 3350 17 gram oral powder packet 17 g PO DAILY 30 days #30 ea05/18/23 sennosides 8.6 mg-docusate sodium 50 mg tablet (Stool Softener-Stimulant Laxative) 2 tab PO BID PRN constipation 30 days #120 tabs 05/18/23 Physical Exam Narrative Further improvement in right lower extremity redness pain and swelling more than90%. No fever. 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 Physical exam General: Alert, Oriented x3, Cooperative HEENT: Atraumatic, PERRLA, EOMI, Normocephalic Oral: No Gingival or Mucosal Lesions/ Ulcerations Neck: Supple, No JVD, Negative Carotid Bruits Lungs: Air entry diminished in bilateral lung bases. No crepitation/rhonchi Cardiovascular: Paced rhythm, Normal S1, Normal S2, systolic murmur right secondICS Abdomen: Bowel Sounds Present, Soft, Non Tender, Non-Distended : No renal angle tenderness. No suprapubic tenderness. Extremities: Bilateral lower extremity edema/lymphedema right more than left much improved, Capillary Refill Less than 3 Seconds Skin: Right arm sutured wound after removal of port. Had clot. Healing. Musculoskeletal: Significant improvement in RLE redness, swelling, induration and edema. Split skin in right trevizo gradually healing. No obvious purulent drainage/exudate or weeping. ROM restricted at right knee hip and ankle joint. Status post right ankle surgery in the past. Neurological: Cranial nerves II-XII grossly intact, DTR 2+/4 and Symmetrical, Neuro grossly intact Psych/Mental Status: Flat affect. Weight / BMI Weight Weight: 182 lb 15.739 oz Body Mass Index (BMI) 28.6 ABG / Lab / Microbiology Data 05/18/23 05:31 05/18/23 05:31 Laboratory: Laboratory Results - last 24 hr 05/16/23 05:50: RBC Folate Hemolysate > 620.0, RBC Folate > 2322, Hematocrit 26.7 L 05/17/23 05:40: Vitamin B12 341 05/17/23 09:38: Vancomycin Trough 15.3 H 05/18/23 05:31: WBC 4.8, RBC 2.64 L, Hgb 8.7 L, Hct 27.2 L, MCV 103.0 H, MCH 33.0 H, MCHC 32.0, RDW Std Deviation 86.3 H, RDW Coeff of Luis Alberto 22.7 H, Plt Count 216, MPV 10.8, Immature Gran % (Auto) 1.900 H, Neut % (Auto) 80.3 H, Lymph % (Auto) 11.3 L, Weld % (Auto) 4.2, Eos % (Auto) 1.9, Baso % (Auto) 0.4, Absolute Neuts (auto) 3.9, Absolute Lymphs (auto) 0.54 L, Nucleated RBC % 0, Anisocytosis2+, Macrocytosis 2+, Sodium 136, Potassium 3.8, Chloride 103, Carbon Dioxide 30.0, Anion Gap 3 L, BUN 25 H, Creatinine 0.84, Estim Creat Clear Calc 57.92, Est GFR (MDRD) Af Amer 111, Est GFR (MDRD) Non-Af 92, BUN/Creatinine Ratio 29.8 H, Glucose 93, Calcium 8.2 L, Total Bilirubin 1.50 H, AST 21, ALT 51, Alkaline Phosphatase 134 H, Total Protein 5.2 L, Albumin 2.1 L, Globulin 3.1, Albumin/Globulin Ratio 0.7 L Microbiology: Microbiology 05/14/23 13:30 Blood Culture (Wb) - Arm Right Blood Culture - Preliminary Gram negative siria 05/14/23 12:55 Blood Culture (Wb) - Arm Right Blood Culture - Preliminary Sphingobacterium multivorum D/C Instructions Discharge Diet: No restrictions Weight Bearing Status: Weight bearing as tolerated Call your doctor if you observe: Fever of 101 or Higher, Coldness, Increased Pain, Numbness or Tingling, Change in Color, Inability to urinate, Inability to have a bowel movement, Shortness of breath, Dizziness, Fainting spells, Swellingin the ankles, Chest pain, Prolonged hiccupping, Increased palpitations (irregular heartbeat) and Calf discomfort When: IN 2 WEEKS Meaningful Use Info Meaningful Use Diagnoses (Choose all that apply): None applicable Discharge Plan Admission Admit Date/Time: 05/14/23 16:47 Primary Reason for Your Visit: JAZMIN stuart with GNR Bacteremia Attending Provider: Marshal Rebolledo Primary Care Provider: Hamzah Pruitt Consulting Providers: Mary Prather; Homer Marsh Instructions Additional Instructions / Restrictions: Follow-up in outpatient wound clinic/lymphedema clinic in 2 weeks Discharge Orders/Prescriptions Prescriptions: New sennosides-docusate sodium [Stool Softener-Stimulant Laxat] 8.6-50 mg Tablet 2 tab PO BID PRN (Reason: constipation) 30 Days Qty: 120 0RF folic acid 1 mg Tablet 1 mg PO BREAKFAST 30 Days Qty: 30 2RF polyethylene glycol 3350 17 gram Powder In Packet 17 g PO DAILY 30 Days Qty: 30 0RF levofloxacin 500 mg tablet 500 mg PO DAILY 6 Days Qty: 6 0RF Continued levothyroxine [Synthroid] 112 mcg tablet 112 mcg PO DAILY furosemide [Lasix] 20 mg tablet 20 mg PO BID Patient Comments: 1 TAB IN THE AM AND 1 TAB QHS cyanocobalamin (vitamin B-12) 1,000 mcg capsule 1,000 mcg PO DAILY cholecalciferol (vitamin D3) 25 mcg (1,000 unit) tablet 25 mcg PO DAILY multivitamin Tablet 1 tab PO DAILY polyethylene glycol 3350 17 gram powder in packet 17 g PO DAILY PRN (Reason: constipation) aspirin 81 mg tablet,delayed release (DR/EC) 81 mg PO DAILY Xarelto 20 mg tablet 20 mg PO QPM Rx Instructions: must administer with evening meal digoxin 125 mcg (0.125 mg) tablet 0.125 mg PO DAILY metoprolol tartrate 25 mg tablet 12.5 mg PO BID Patient Comments: take 1/2 tablet by mouth every 12 hours atorvastatin 20 mg tablet 20 mg PO QHS Changed ferrous fumarate 325 mg (106 mg iron) tablet 325 mg PO DAILY 30 Days Qty: 0 0RF Rx Instructions: with meals Referrals / Follow Up: Hamzah Pruitt [Other] Homer Marsh MD [Med Staff - Active Staff] - Within 1 Month (as needed for cellulitis) NOT,DEFINED [Non-Staff] - Disposition Disposition (needs filled in before D/C Order can be placed): Assisted Living Charges/Coding Visit Charges Inpatient E&M: 51709 Disch Hosp >30min 05/18/23 1500 <Electronically signed by Marshal Rebolledo MD> Cosigner Signature (if applicable): CC: Dr. Marshal Rebolledo MD; Hamzah Pruitt~ Signed [facility] Work Phone: 1(176) 621-257507-10-2023 Discharge summary Author Marshal Rebolledo [facility] May 18, 2023 2:58pm Note Date/Time May 18, 2023 9:36 am [facility] Medical Records Department [address] [place] [id number] Instructions for Home/Discharge Instructions 05/18/23812 MR#: [id number] Acct: [id number] Name: SRINI LUIS Rep #:[id number] : 1935 87 From: Marshal Nuñez PCP: Hamzah Pruitt Status:ADM IN Discharge Instructions Diet Discharge Diet: No restrictions Activity Discharge Activity: Return to Normal Activity Weight Bearing Status: Weight bearing as tolerated Dressing / Incision Call your doctor if you observe: Fever of 101 or Higher, Coldness, Increased Pain, Numbness or Tingling, Change in Color, Inability to urinate, Inability to have a bowel movement, Shortness of breath, Dizziness, Fainting spells, Swellingin the ankles, Chest pain, Prolonged hiccupping, Increased palpitations (irregular heartbeat) and Calf discomfort Follow Up Care When: IN 2 WEEKS Test Results: Test results from this visit will be discussed in further detail at your follow- up appointment, if applicable. Discharge Plan Admission Admit Date/Time: 05/14/23 16:47 Primary Reason for Your Visit: RLE celullutis with GNR Bacteremia Attending Provider: Marshal Rebolledo Primary Care Provider: Hamzah Pruitt Consulting Providers: Mary Prather; Homer Marsh Instructions Additional Instructions / Restrictions: Follow-up in outpatient wound clinic/lymphedema clinic in 2 weeks Discharge Orders/Prescriptions Prescriptions: New sennosides-docusate sodium [Stool Softener-Stimulant Laxat] 8.6-50 mg Tablet 2 tab PO BID PRN (Reason: constipation) 30 Days Qty: 120 0RF folic acid 1 mg Tablet 1 mg PO BREAKFAST 30 Days Qty: 30 2RF polyethylene glycol 3350 17 gram Powder In Packet 17 g PO DAILY 30 Days Qty: 30 0RF levofloxacin 500 mg tablet 500 mg PO DAILY 6 Days Qty: 6 0RF Continued levothyroxine [Synthroid] 112 mcg tablet 112 mcg PO DAILY furosemide [Lasix] 20 mg tablet 20 mg PO BID Patient Comments: 1 TAB IN THE AM AND 1 TAB QHS cyanocobalamin (vitamin B-12) 1,000 mcg capsule 1,000 mcg PO DAILY cholecalciferol (vitamin D3) 25 mcg (1,000 unit) tablet 25 mcg PO DAILY multivitamin Tablet 1 tab PO DAILY polyethylene glycol 3350 17 gram powder in packet 17 g PO DAILY PRN (Reason: constipation) aspirin 81 mg tablet,delayed release (DR/EC) 81 mg PO DAILY Xarelto 20 mg tablet 20 mg PO QPM Rx Instructions: must administer with evening meal digoxin 125 mcg (0.125 mg) tablet 0.125 mg PO DAILY metoprolol tartrate 25 mg tablet 12.5 mg PO BID Patient Comments: take 1/2 tablet by mouth every 12 hours atorvastatin 20 mg tablet 20 mg PO QHS Changed ferrous fumarate 325 mg (106 mg iron) tablet 325 mg PO DAILY 30 Days Qty: 0 0RF Rx Instructions: with meals Referrals / Follow Up: Hamzah Pruitt [Other] Homer Marsh MD [Med Staff - Active Staff] - Within 1 Month (as needed for cellulitis) NOT,DEFINED [Non-Staff] - Disposition Disposition (needs filled in before D/C Order can be placed): Assisted Living 05/18/23 9312<Electronically signed by Marshal Rebolledo MD>Marshal Rebolledo MD CC: Dr. Mary Prather MD; Dr. Homer Marsh MD; Hamzah Pruitt ~ Signed [facility] Work Phone: [phone]) 131-316407-09-2023 Progress note Author Marshal Rebolledo [facility] May 17, 2023 12:53pm Note Date/Time May 17, 2023 12:53 pm [facility] Medical Records Department [address] [place] [address] Progress Note - Hospitalist 05/17/23 1249 MR#: [id number] Acct: [id number] Name: SRINI LUIS Rep #:[id number] : 1935 87 From: Marshal Nuñez PCP: Hamzah Pruitt Status:ADM IN Location: [place] [id number]- [id number] 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) Atherosclerotic heart disease of [place] coronary artery without angina pectoris (05/14/23) Atrioventricular block, 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) Cellulitis of right lower limb (05/14/23) Hypoxemia (05/14/23) Severe sepsis without septic shock (05/14/23) Presence of cardiac pacemaker (05/14/23) Subjective Subjective Follow-up for complicated right lower extremity soft tissue infection/cellulitis Objective Data Objective Data Vital Signs: Vital Signs Temp Pulse Resp BP Pulse Ox O2 Del Method O2 Flow Rate 98.3 F 63 18 127/68 H 92 Room Air 2 05/17/23 09:02 05/17/23 09:09 05/17/23 09:02 05/17/23 09:02 05/17/23 09:02 05/17/23 09:53 05/16/23 12:42 Oxygen Flow Rate (L/min) 2 Oxygen Delivery Method Room Air Weight: 182 lb 15.739 oz Body Mass Index (BMI) 28.6 Intake & Output: Intake and Output for Last 24 Hours 05/15/23 05/16/23 05/17/23 23:59 23:59 23:59 Intake Total 1440 / 1440 1880 / 1880 200 / 200 Output Total 1100 / 1100 700 / 700 400 / 400 Balance 340 / 340 1180 / 1180 -200 / -200 Lab / Micro Data 05/17/23 05:40 05/17/23 05:40 Labs: Laboratory Results - last 24 hr 05/17/23 05:40: WBC 5.4, RBC 2.62 L, Hgb 8.7 L, Hct 27.1 L, MCV 103.4 H, MCH 33.2 H, MCHC 32.1, RDW Std Deviation 87.2 H, RDW Coeff of Luis Alberto 23.3 H, Plt Count 238, MPV 12.0, Immature Gran % (Auto) 1.500 H, Neut % (Auto) 84.8 H, Lymph % (Auto) 9.4 L, Weld % (Auto) 2.8, Eos % (Auto) 0.9, Baso % (Auto) 0.6, Absolute Neuts (auto) 4.6, Absolute Lymphs (auto) 0.51 L, Nucleated RBC % 0, DifferentialComment SCANNED, Polychromasia RARE, Anisocytosis 3+, Microcytosis 1+, Macrocytosis 1+, Schistocytes RARE, Sodium 138, Potassium 4.2, Chloride 104, Carbon Dioxide 32.0, Anion Gap 2 L, BUN 27 H, Creatinine 0.89, Estim Creat ClearCalc 54.67, Est GFR (MDRD) Af Amer 104, Est GFR (MDRD) Non-Af 86, BUN/CreatinineRatio 30.3 H, Glucose 107 H, Calcium 8.2 L, Total Bilirubin 1.20 H, AST 29, ALT 57, Alkaline Phosphatase 142 H, Total Protein 4.9 L, Albumin 2.1 L, Globulin 2.8, Albumin/Globulin Ratio 0.8 L, Folate 30.10 05/17/23 09:38: Vancomycin Trough 15.3 H Micro: Microbiology 05/14/23 13:30 Blood Culture (Wb) - Arm Right Blood Culture - Preliminary Gram negative siria 05/14/23 12:55 Blood Culture (Wb) - Arm Right Blood Culture - Preliminary Sphingobacterium multivorum Rhythm Strip Rhythm Strip: vent pacing Rate: 60 Ectopy: None Physical Exam Narrative Improvement in right lower extremity redness pain and swelling. No fever. 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 Physical exam General: Alert, Oriented x3, Cooperative HEENT: Atraumatic, PERRLA, EOMI, Normocephalic Oral: No Gingival or Mucosal Lesions/ Ulcerations Neck: Supple, No JVD, Negative Carotid Bruits Lungs: Air entry diminished in bilateral lung bases. No crepitation/rhonchi Cardiovascular: Paced rhythm, Normal S1, Normal S2, No murmurs Abdomen: Bowel Sounds Present, Soft, Non Tender, Non-Distended : No renal angle tenderness. No suprapubic tenderness. Extremities: Bilateral lower extremity edema/lymphedema right more than left., Capillary Refill Less than 3 Seconds Skin: Right arm sutured wound after removal of port. Had clot. Musculoskeletal: Significant improvement in RLE redness, swelling, induration and edema. Split the skin in right trevizo gradually healing. No obvious purulentdrainage/exudate or weeping. ROM restricted at right knee hip and ankle joint. Status post right ankle surgery in the past. Neurological: Cranial nerves II-XII grossly intact, DTR 2+/4 and Symmetrical, Neuro grossly intact Psych/Mental Status: Flat affect. Assessment & Plan Assessment/Plan (1) Sepsis: QUALIFIERS: Sepsis type: sepsis due to unspecified organism Sepsis acute organ dysfunction status: with acute organ dysfunction Severe sepsis acute organ dysfunction type: unspecified Severe sepsis shock status: without septic shock Qualified Code(s): A41.9 - Sepsis, unspecified organism; R65.20 - Severe sepsis without septic shock (2) Cellulitis of right lower leg: PLAN: Plan #Sepsis 2/2 likely RLE cellulitis The patient presented with sepsis with clinical indicators of high fever temperature 103.5 ?F, tachycardia, tachypnea, mild hypoxia 83% on RA due to cellulitis/soft tissue infection in immunocompromised host with last chemotherapy on the with acute sepsis-related organ dysfunction as evidenced by fluid responsive hypotension, BP in 80s and lactic acidosis 3.8. She was managed as per sepsis protocol and full fluid was not given due to concern for fluid overload as chest x-ray showed congestion. -05/16: Lactic acidosis improved and blood cultures growing gram-negative rods 2 out of 2, await speciation, continue broad-spectrum antibiotics at this time. No open ulcer or drainage for culture in the legs. 05/17:Vancomycin discontinued as blood culture shows GNR, Sphingobacterium multivorum. Patient happy with the improvement of cellulitis. ID consult tomorrow AM for home antibiotic and possible discharge. Patient had right lowerextremity saphenous vein harvested for CABG therefore has impaired venous and lymphatic drainage, prone for cellulitis. #Acute hypoxia?resolved -Unclear etiology, there is unclear if it was fluid overload based on BNP of 972and chest x-ray appeared congested with lower extremity edema however he improved with antibiotics, fluids and 2 L of O2 -Chest x-ray was poor inspiration -We will obtain echocardiogram -I's and O's, daily weights 05/16: Hypoxia resolved. On ambient air. #Elevated lactic acid -as above -05/16: Acidosis improved. 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 # CKD stage IIIa -No baseline, unclear if this is elevated for him however BUN was somewhat up 31 -Trend BMP -Patient received IVF -05/16: Kidney function improving with IVF, patient does not meet criteria for DANE. Does not have CKD stage IIIb but most likely CKD stage IIIa #Macrocytic anemia -Unclear baseline, monitor for signs or symptoms of bleeding -Continue oral iron supplementation -Daily CBC -05/16: Hemoglobin not big change, continue Xarelto. Folic acid started. #Hypothyroidism -Continue Synthroid #DVT ppx: Xarelto Charges/Coding Visit Charges Inpatient E&M: 22445 Subs Hosp L2 05/17/23 1253 <Electronically signed by Marshal Rebolledo MD> Cosigner Signature (if applicable): CC: ~ Signed [facility] Work Phone: 1(729) 918-667507-08-2023 Consult note Author Marshal Rebolledo [facility] May 16, 2023 3:21pm Note Date/Time May 16, 2023 10:[address] [facility] Medical Records Department [address] [place] [address] Pharmacokinetic/Renal -Consult 05/16/23 1016 MR#: [id number] Acct: [id number] Name: SRINI LUIS Rep #:[id number] : 1935 87 From: Nunu Stevens PCP: Hamzah Pruitt Status:ADM IN Y Location: [place] [address] Consult Antibiotic Management Pharmacy has been consulted to manage selected antiobiotic: Vancomycin Type of Intervention Type of Consult: Follow-up Suspected Infection Suspected Infection: Skin/Soft tissue and Bacteremia Labs Labs: Sodium 137 mmol/L (136-145) 05/16/23 05:50 Potassium 3.8 mmol/L (3.5-5.1) 05/16/23 05:50 Chloride 102 mmol/L (98-107) 05/16/23 05:50 Carbon Dioxide 33.0 mmol/L (21.0-32.0) H 05/16/23 05:50 Anion Gap 2 (5-15) L 05/16/23 05:50 BUN 27 mg/dL (7-18) H 05/16/23 05:50 Creatinine 0.94 mg/dL (0.70-1.30) 05/16/23 05:50 Est GFR (MDRD) Af Amer 98 mL/min (>60) 05/16/23 05:50 Est GFR (MDRD) Non-Af 81 mL/min (>60) 05/16/23 05:50 BUN/Creatinine Ratio 28.7 RATIO (10-20) H 05/16/23 05:50 Glucose 133 mg/dL (74-106) H 05/16/23 05:50 Vancomycin Trough 14.3 ug/mL (5.0-15.0) 05/16/23 09:05 Microbiology Microbiology: Microbiology 05/14/23 12:55 Blood Culture (Wb) - Arm Right Blood Culture - Preliminary Gram negative siria 05/14/23 13:30 Blood Culture (Wb) - Arm Right Blood Culture - Preliminary Gram negative siria Goal Trough Goal Trough: 15-20 mcg/mL Pharmacy Plan for Drug Dosing Pharmacy Plan for Drug Dosing: VANCOMYCIN LEVEL RECEIVED Current Vancomycin Dose: 750MG Q12 Number of Doses Received: 3 Vancomycin Level: 14.3 MG/DL Hours Since Last Dose: 12 Renal Function: SCR 0.94 MG/DL, CRCL 51.8 ML/MIN Renal Function Trend: STABLE Lab/Micro: GNR IN BLOOD CX Vancomycin Plan/Comments: NO, SINCE LEVEL IS WITHIN 1MG/DL OF GOAL RANGE (15- 20MG/DL) WILL CONTINUE CURRENT DOSE AND GET A LEVEL IN 24 HOURS. IF LEVEL IS STILL SLIGHTLY SUBTHERAPEUTIC, WILL INCREASE DOSE TO 1000MG Q12. Pending Level: 05/17/23 @ 0900 Pharmacy Service will continue to monitor and adjust dosing as required. 05/16/23 1018 <Electronically signed by Nunu Stevens> Date _ Nunu Stevens 05/16/23 1521 <Electronically signed by Marshal Rebolledo MD> Cosigner Signature (if applicable): Date Marshal Rebolledo MD CC: ~ Signed [facility] Work Phone: [phone]) [phone] Progress note Author Marshal Rebolledo [facility] May 16, 2023 9:35am Note Date/Time May 16, 2023 9:20a [facility] Medical Records Department [address] [place] [address] Progress Note - Hospitalist 05/16/23908 MR#: [id number] Acct: [id number] Name: SRINI LUIS Rep #:[id number] : 1935 87 From: Marshal Nuñez PCP: Hamzah Pruitt Status:ADM IN Location: [address] 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) Atherosclerotic heart disease of [place] coronary artery without angina pectoris (05/14/23) Atrioventricular block, 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) Cellulitis of right lower limb (05/14/23) Hypoxemia (05/14/23) Presence of cardiac pacemaker (05/14/23) Objective Data Objective Data Vital Signs: Vital Signs Temp Pulse Resp BP Pulse Ox O2 Del Method O2 Flow Rate 98.2 F 59 L 20 H 107/78 94 Nasal Cannula 2 05/16/23 08:14 05/16/23 08:14 05/16/23 08:14 05/16/23 08:14 05/16/23 08:14 05/16/23 08:14 05/16/23 08:14 Oxygen Flow Rate (L/min) 2 Oxygen Delivery Method Nasal Cannula Weight: 178 lb 2.136 oz Body Mass Index (BMI) 27.8 Intake & Output: Intake and Output for Last 24 Hours 05/14/23 05/15/23 05/16/23 23:59 23:59 23:59 Intake Total 2140 / 2140 1440 / 1440 50 / 50 Output Total 1100 / 1100 400 / 400 Balance 2140 / 2140 340 / 340 -350 / -350 Lab / Micro Data 05/16/23 05:50 05/16/23 05:50 Labs: Laboratory Results - last 24 hr 05/15/23 11:45: POC Glucose 147 H 05/16/23 05:50: WBC 7.1, RBC 2.59 L, Hgb 8.8 L, Hct 27.3 L, MCV 105.4 H, MCH 34.0 H, MCHC 32.2, RDW Std Deviation 86.7 H, RDW Coeff of Luis Alberto 22.3 H, Plt Count 253, MPV 11.2, Immature Gran % (Auto) 1.300 H, Neut % (Auto) 86.7 H, Lymph % (Auto) 7.7 L, Weld % (Auto) 2.6, Eos % (Auto) 1.3, Baso % (Auto) 0.4, Absolute Neuts (auto) 6.1, Absolute Lymphs (auto) 0.54 L, Nucleated RBC % 0, DifferentialComment SCANNED, Anisocytosis 2+, Macrocytosis 1+ Sodium 137, Potassium 3.8, Chloride 102, Carbon Dioxide 33.0 H, Anion Gap 2 L, BUN 27 H, Creatinine 0.94, Estim Creat Clear Calc 51.76, Est GFR (MDRD) Af Amer 98, Est GFR (MDRD) Non-Af 81, BUN/Creatinine Ratio 28.7 H, Glucose 133 H, Calcium 8.2 L, Total Bilirubin 0.90, AST 18, ALT 42, Alkaline Phosphatase 88, Total Protein 5.0 L, Albumin 2.2 L, Globulin 2.8, Albumin/Globulin Ratio 0.8 L Micro: Microbiology 05/14/23 12:55 Blood Culture (Wb) - Arm Right Blood Culture - Preliminary Gram negative siria 05/14/23 13:30 Blood Culture (Wb) - Arm Right Blood Culture - Preliminary Gram negative siria Radiography Diagnostic Testing: Radiology Impression Echocardiogram 05/14/23 17:04 Interpretation Summary The estimated ejection fraction is 55-60 %. Unable to assess diastolic dysfunction. Trivial mitral valve insufficiency. Mild aortic stenosis. Ordering Physician: Mary Prather Referring Physician: NO PCP GIVEN Performed By: Ngoc [place]a RCS Rhythm Strip Rhythm Strip: vent pacing Rate: 60 Ectopy: None Physical Exam Narrative Patient is mildly frustrated because of right lower extremity cellulitis not improving as per his expectation but improving very slowly. Low immune tolerance/immunocompromised host. No fever. GNR in blood culture. Physical exam General: Alert, Oriented x3, Cooperative HEENT: Atraumatic, PERRLA, EOMI, Normocephalic Oral: No Gingival or Mucosal Lesions/ Ulcerations Neck: Supple, No JVD, Negative Carotid Bruits Lungs: Air entry diminished in bilateral lung bases. No crepitation/rhonchi Cardiovascular: Paced rhythm, Normal S1, Normal S2, No murmurs Abdomen: Bowel Sounds Present, Soft, Non Tender, Non-Distended : No renal angle tenderness. No suprapubic tenderness. Extremities: Bilateral lower extremity edema/lymphedema right more than left., Capillary Refill Less than 3 Seconds Skin: Right arm sutured wound after removal of port. Had clot. Musculoskeletal: RLE edematous, erythematous mildly tender in right lower lobe. Split the skin in right trevizo gradually healing. No obvious purulent drainage/exudate or weeping. ROM restricted at right knee hip and ankle joint. Status post right ankle surgery in the past. Neurological: Cranial nerves II-XII grossly intact, DTR 2+/4 and Symmetrical, Neuro grossly intact Psych/Mental Status: Flat affect. Assessment & Plan Assessment/Plan (1) Sepsis: QUALIFIERS: Sepsis type: sepsis due to unspecified organism Sepsis acute organ dysfunction status: with acute organ dysfunction Severe sepsis acute organ dysfunction type: unspecified Severe sepsis shock status: without septic shock Qualified Code(s): A41.9 - Sepsis, unspecified organism; R65.20 - Severe sepsis without septic shock (2) Cellulitis of right lower leg: PLAN: Plan #Sepsis 2/2 likely RLE cellulitis The patient presented with sepsis with clinical indicators of high fever temperature 103.5 ?F, tachycardia, tachypnea, mild hypoxia 83% on RA due to cellulitis/soft tissue infection in immunocompromised host with last chemotherapy on the with acute sepsis-related organ dysfunction as evidenced by fluid responsive hypotension, BP in 80s and lactic acidosis 3.8. She was managed as per sepsis protocol and full fluid was not given due to concern for fluid overload as chest x-ray showed congestion. -05/16: Lactic acidosis improved and blood cultures growing gram-negative rods 2 out of 2, await speciation, continue broad-spectrum antibiotics at this time. No open ulcer or drainage for culture in the legs. #Acute hypoxia?resolved -Unclear etiology, there is unclear if it was fluid overload based on BNP of 972and chest x-ray appeared congested with lower extremity edema however he improved with antibiotics, fluids and 2 L of O2 -Chest x-ray was poor inspiration -We will obtain echocardiogram -I's and O's, daily weights 05/16: Hypoxia resolved. On ambient air. #Elevated lactic acid -as above -05/16: Acidosis improved. 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 # CKD stage IIIa -No baseline, unclear if this is elevated for him however BUN was somewhat up 31 -Trend BMP -Patient received IVF -05/16: Kidney function improving with IVF, patient does not meet criteria for DANE. Does not have CKD stage IIIb but most likely CKD stage IIIa #Macrocytic anemia -Unclear baseline, monitor for signs or symptoms of bleeding -Continue oral iron supplementation -Daily CBC -05/16: Hemoglobin not big change, continue Xarelto. Folic acid started. #Hypothyroidism -Continue Synthroid #DVT ppx: Xarelto Charges/Coding Visit Charges Inpatient E&M: 04453 Subs Hosp L2 05/16/23 0978 <Electronically signed by Marshal Rebolledo MD> Cosigner Signature (if applicable): CC: ~ Signed [facility] Work Phone: 1(949) 536-474407-07-2023 Consult note Author Mary Prather [facility] May 15, 2023 7:41pm Note Date/Time May 14, 2023 10:[address] [facility] Medical Records Department [address] [place] [address] Pharmacokinetic/Renal -Consult 05/14/232155 MR#: [id number] Acct: [id number] Name: SRINI LUIS Rep #:[id number] : 1935 87 From: Ned Vinson PCP: Hamzah Pruitt Status:ADM IN Y [facility] Antibiotic Management Pharmacy has been consulted to manage selected antiobiotic: Vancomycin Type of Intervention Type of Consult: New start Prior Doses of Antibiotics Prior Doses of Antibiotics Received/Current Regimen: 2000mg vancomycin given 05/14/23 @2131 Labs Labs: Sodium 136 mmol/L (136-145) 05/14/23 12:55 Potassium 4.5 mmol/L (3.5-5.1) 05/14/23 12:55 Chloride 96 mmol/L (98-107) L 05/14/23 12:55 Carbon Dioxide 35.0 mmol/L (21.0-32.0) H 05/14/23 12:55 Anion Gap 5 (5-15) 05/14/23 12:55 BUN 31 mg/dL (7-18) H 05/14/23 12:55 Creatinine 1.17 mg/dL (0.70-1.30) 05/14/23 12:55 Est GFR (MDRD) Af Amer 76 mL/min (>60) 05/14/23 12:55 Est GFR (MDRD) Non-Af 63 mL/min (>60) 05/14/23 12:55 BUN/Creatinine Ratio 26.5 RATIO (10-20) H 05/14/23 12:55 Glucose 252 mg/dL (74-106) H 05/14/23 12:55 Dosing Weight Weight used for dosin.2 kg Estimated Creatinine Clearance Estimated Creatinine Clearance: 41.6 Goal Trough Goal Trough: 15-20 mcg/mL Pharmacy Plan for Drug Dosing Pharmacy Plan for Drug Dosing: Pharmacy Service will continue to monitor and adjust dosing as required. Follow-Up Labs Follow-Up Labs: Trough: Vancomycin Date/Time Labs Ordered Labs to be done on [date and time ordered]: 05/16/23 @0900 05/14/232203 <Electronically signed by Ned guaman> Date _ Ned Vinson 05/15/231940 <Electronically signed by Mary Prather MD> Cosigner Signature (if applicable): Date Mary Prather MD CC: ~ Signed [facility] Work Phone: [phone]) 287-472107-07-2023 Consult note Author Mary Prather [facility] May 15, 2023 7:41pm Note Date/Time May 15, 2023 7:38a m [facility] Medical Records Department [address] [place] [address] Pharmacokinetic/Renal -Consult 05/15/2338 MR#: [id number] Acct: [id number] Name: SRINI LUIS Rep #:[id number] : 1935 87 From: Sammie Dean PCP: Hamzah Pruitt Status:ADM IN Y Location: [place] [address] Consult Antibiotic Management Pharmacy has been consulted to manage selected antiobiotic: Vancomycin Type of Intervention Type of Consult: Follow-up Suspected Infection Suspected Infection: Skin/Soft tissue Labs Labs: Sodium 138 mmol/L (136-145) 05/15/23 05:17 Potassium 4.1 mmol/L (3.5-5.1) 05/15/23 05:17 Chloride 102 mmol/L (98-107) 05/15/23 05:17 Carbon Dioxide 34.0 mmol/L (21.0-32.0) H 05/15/23 05:17 Anion Gap 2 (5-15) L 05/15/23 05:17 BUN 28 mg/dL (7-18) H 05/15/23 05:17 Creatinine 0.93 mg/dL (0.70-1.30) 05/15/23 05:17 Est GFR (MDRD) Af Amer 99 mL/min (>60) 05/15/23 05:17 Est GFR (MDRD) Non-Af 81 mL/min (>60) 05/15/23 05:17 BUN/Creatinine Ratio 30.0 RATIO (10-20) H 05/15/23 05:17 Glucose 112 mg/dL (74-106) H 05/15/23 05:17 Goal Trough Goal Trough: 15-20 mcg/mL Pharmacy Plan for Drug Dosing Pharmacy Plan for Drug Dosing: DAILY ASSESSMENT Current Vancomycin Dose: 500mg Q12H Number of Doses Received: 2000mg x1 loading dose Current Renal Function: sCr 0.82 (CrCl 57.1 ml/min with AdjBW 72.1kg) Renal Function Trend: improved Lab/Micro: pending Any Change in Vanc Plan: Yes - increase Vancomycin dosing regimen to 750mg Q12H Pending Level: Vancomycin trough @ 0900 05/16/23 Pharmacy Service will continue to monitor and adjust dosing as required. Follow-Up Labs Follow-Up Labs: Trough: Vancomycin Date/Time Labs Ordered Labs to be done on [date and time ordered]: 09:00 05/16/23 05/15/23 0739 <Electronically signed by Sammie Dean> Date _ Sammie Dean 05/15/23 1941 <Electronically signed by Mary Prather MD> Cosigner Signature (if applicable): Date Mary Prather MD CC: ~ Signed [facility] Work Phone: [phone]) 172-881307-07-2023 Progress note Author Mary Prather [facility] May 15, 2023 4:16pm Note Date/Time May 15, 2023 8:37a [facility] Medical Records Department [address] [place] [address] Progress Note - Hospitalist 05/15/23 0834 MR#: [id number] Acct: [id number] Name: SRINI LUIS Rep #:[id number] : 1935 87 From: Mary Prather MD PCP: Hamzah Pruitt Status:ADM IN Location: [place] [address] 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) Atherosclerotic heart disease of [place] coronary artery without angina pectoris (05/14/23) Atrioventricular block, 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) Cellulitis of right lower limb (05/14/23) Hypoxemia (05/14/23) Presence of cardiac pacemaker (05/14/23) Subjective Subjective Patient still has pain in his leg but overall feels better than he did yesterday, both legs still swollen but has some improvement in redness and rightleg, denies shortness of breath Objective Data Objective Data Vital Signs: Vital Signs Temp Pulse Resp BP Pulse Ox O2 Del Method O2 Flow Rate 98.2 F 60 17 121/57 H 97 Room Air 2 05/15/23 03:33 05/15/23 06:15 05/15/23 03:33 05/15/23 03:33 05/15/23 06:15 05/15/23 06:15 05/14/23 21:52 Oxygen Flow Rate (L/min) 2 Oxygen Delivery Method Room Air Weight: 81 kg Body Mass Index (BMI) 27.9 Intake & Output: Intake and Output for Last 24 Hours 05/13/23 05/14/23 05/15/23 23:59 23:59 23:59 Intake Total 2140 / 2140 50 / 50 Output Total 400 / 400 Balance 2140 / 2140 -350 / -350 Lab / Micro Data 05/15/23 05:17 05/15/23 05:17 Labs: Laboratory Results - last 24 hr 05/14/23 12:55: WBC 7.0, RBC 2.84 L, Hgb 9.3 L, Hct 29.3 L, MCV 103.2 H, MCH 32.7 H, MCHC 31.7 L, RDW Std Deviation 83.3 H, RDW Coeff of Luis Alberto 22.2 H, Plt Count 399, MPV 10.7, Immature Gran % (Auto) 1.600 H, Neut % (Auto) 89.7 H, Lymph% (Auto) 5.6 L, Weld % (Auto) 2.7, Eos % (Auto) 0.0, Baso % (Auto) 0.4, AbsoluteNeuts (auto) 6.2, Absolute Lymphs (auto) 0.39 L, Nucleated RBC % 0.4, Differential Comment SCANNED, Polychromasia RARE, Anisocytosis 2+, Macrocytosis 1+, PT 18.6 H, INR 1.5, APTT 30.3, Sodium 136, Potassium 4.5, Chloride 96 L, Carbon Dioxide 35.0 H, Anion Gap 5, BUN 31 H, Creatinine 1.17, Estim Creat ClearCalc 41.59, Est GFR (MDRD) Af Amer 76, Est GFR (MDRD) Non-Af 63, BUN/Creatinine Ratio 26.5 H, Glucose 252 H, Lactic Acid 3.8 H*, Calcium 8.4 L, Total Bilirubin 1.20 H, AST 20, ALT 51, Alkaline Phosphatase 92, Troponin I High Sens 111 H, B-Natriuretic Peptide 972.1 H, Total Protein 5.4 L, Albumin 2.7 L, Globulin 2.7, Albumin/Globulin Ratio 1.0 05/14/23 17:11: Lactic Acid 2.4 H* 05/14/23 22:13: POC Glucose 171 H 05/15/23 05:17: WBC 8.4, RBC 2.78 L, Hgb 9.2 L, Hct 29.0 L, MCV 104.3 H, MCH 33.1 H, MCHC 31.7 L, RDW Std Deviation 85.3 H, RDW Coeff of Luis Alberto 22.8 H, Plt Count 321, MPV 11.4, Immature Gran % (Auto) 1.400 H, Neut % (Auto) 89.8 H, Lymph% (Auto) 6.2 L, Weld % (Auto) 1.8, Eos % (Auto) 0.2, Baso % (Auto) 0.6, AbsoluteNeuts (auto) 7.5, Absolute Lymphs (auto) 0.52 L, Nucleated RBC % 0.4, Platelet Estimate ADEQUATE, Polychromasia 1+, Macrocytosis 1+, PT 18.2 H, INR 1.5, [id number], Potassium 4.1, Chloride 102, Carbon Dioxide 34.0 H, Anion Gap 2 L, BUN 28 H, Creatinine 0.93, Estim Creat Clear Calc 52.32, Est GFR (MDRD) Af Amer 99, Est GFR (MDRD) Non-Af 81, BUN/Creatinine Ratio 30.0 H, Glucose 112 H, Calcium 8.1 L,Magnesium 1.9, Total Bilirubin 1.50 H, AST 22, ALT 46, Alkaline Phosphatase 81, Total Protein 5.0 L, Albumin 2.4 L, Globulin 2.6, Albumin/Globulin Ratio 0.9, TSH 0.61, Digoxin 1.39 05/15/23 06:11: POC Glucose 108 H Radiography Diagnostic Testing: Radiology Impression Venous Doppler Study 05/14/23 12:29 Interpretation Summary There is no evidence of right lower extremity deep vein thrombosis. Dilated right popliteal vein to 2.14 x 2.17 cm in diameter Previously surgically harvested right great saphenous vein Pulsatile venous flow was noted throughout suggestive of proximal venous hypertension or obstruction. Clinical correlation would be appropriate. Ordering Physician: Pedro Diaz Performed By: Tigist Brody, RVT Chest X-Ray 05/14/23 13:34 IMPRESSION: Poor inspiratory effort. Findings in keeping with CHF. Electronically Signed: Demetri Castillo MD at 13:59 EDT , Rhythm Strip Rhythm Strip: vent pacing Rate: 60 Ectopy: None Physical Exam Narrative General: Alert, oriented, no apparent distress HEENT: Atraumatic, normocephalic Eyes: Anicteric, normal conjunctiva, extraocular movements grossly intact Neck: Supple Respiratory: Somewhat diminished bilaterally, normal respiratory effort Cardiovascular: Regular rate and rhythm GI: Soft, nontender, nondistended Extremities: 2-3+ bilateral lower extremity edema Musculoskeletal: Moving all extremities Neuro: No overt focal neurological deficits Skin: Erythema on right leg improving Psych: Cooperative Assessment & Plan Assessment/Plan (1) Sepsis: (2) Hypoxemia: (3) CMML (chronic myelomonocytic leukemia): (4) Cellulitis of right lower leg: (5) Complete heart block: (6) Pacemaker: (7) Coronary artery disease: PLAN: Plan #Sepsis 2/2 likely RLE cellulitis -Per verbal checkout from ED physician pt had SBP in the 80's and lactic acid resulted at 3.8 with left shift on WBC and likely source of RLE -Preliminary results of right lower extremity negative for DVT, presumably cellulitis -Bld cx -2L IVF ordered and BP improved, not given further fluids d/t concomitant concern for fluid overload -Broad spectrum abx -Trend lactic -05/15: Lactic improved and blood cultures growing gram-negative rods 2 out of 2, await speciation, continue broad-spectrum antibiotics at this time. Nothing present on leg to culture at this time #Acute hypoxia?resolved -Unclear etiology, there is unclear if it was fluid overload based on BNP of 972and chest x-ray appeared congested with lower extremity edema however he improved with antibiotics, fluids and 2 L of O2 -Chest x-ray was poor inspiration -We will obtain echocardiogram -I's and O's, daily weights -05/15: Doing well on room air now that patient is doing better clinically #Elevated lactic acid -as above -05/15: Down trended with fluids and antibiotics #History of coronary artery disease/pacemaker -CABG x4 2 years ago -Pacemaker last fall -Continue statin and aspirin #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, chemo qmonth #Atrial fibrillation -Per history -Patient on digoxin, metoprolol, Xarelto -Continue Xarelto and metoprolol as blood pressure allows -We will check digoxin level -Digoxin level 1.39, likely higher than patient requires and additionally heart rate fairly slow, continue metoprolol and will hold digoxin at this time, may need adjustment in dosing ultimately if still necessary #Hyperglycemia -No known history of diabetes but glucose was 252 on BMP in the ED -May be secondary to infection, will add glucose checks and sliding scale -05/15: Glucose improved with treatment of underlying infection, glucose remained stable, DC glucose checks #DANE versus CKD stage IIIb -No baseline, unclear if this is elevated for him however BUN was somewhat up 31 -Trend BMP -Patient received IVF -05/15: Kidney function improving with IVF, continue supportive care, still unclear DANE versus CKD, trend BMP #Microcytic anemia -Unclear baseline, monitor for signs or symptoms of bleeding -Continue oral iron supplementation -Daily CBC -05/15: Hemoglobin virtually unchanged today, continue present management, continue Xarelto #Hypothyroidism -Continue Synthroid #DVT ppx: Jesse Prather MD Time spent in the patient's overall evaluation,decision-making process, review of diagnostic data, adjustment of management, discussion with other providers, nursing nursing and ancillary staff involved in patient's care documentation, 37Minutes Charges/Coding Visit Charges Inpatient E&M: 33950 Subs Hosp L2 05/15/23 1616 <Electronically signed by Mary Prather MD> Cosigner Signature (if applicable): CC: ~ Signed [facility] Work Phone: [phone]) 798-975407-07-2023 Discharge summary Author Pedro Diaz [facility] May 14, 2023 10:33pm Note Date/Time May 14, 2023 12:37 pm [facility] Medical Records Department [address] [address] Emergency Department Summary 05/14/23 MR#: [id number] Acct: [id number] Name: SRINI LUIS Rep #:[id number] : 1935 87 From: Pedro Diaz MD PCP: Hamzah Pruitt Status:ADM IN Location: [place] [address] HPI History of Present Illness Chief Complaint: Fever Informant: patient and family Narrative Narrative: Patient has a history of CMML, is following with Dr. Galloway at [facility] oncology, and has been getting chemotherapy injections. He had a routine follow-up for outpatient labs this morning, he had those drawn, and then went to breakfast, near the end of breakfast he started having rigors and feeling malaised. They got him into a car and took him over to his doctor's office and he was referred here to the ER where in triage she was determined to have a fever of 103.5. Patient denies any other new symptoms. He seemed to be hypoxic in triage but nursing admits that he was extremely tremulous, cool fingers and difficult to get a reading. The patient does not feel dyspneic or have any discomfort right now, just feels weak all over. He states his right leg has been hurting and swelling and he had an ultrasound scheduled for today to evaluate for DVT. He just had a med port of some sort removed from his right upper extremity due to it being clotted off according to a family member. [facility] Medical History (Updated 05/14/23 @ 16:[address] Pedro Diaz MD) Atheroembolism of foot Benign essential HTN Cerebral vascular accident (~08/2022) CMML (chronic myelomonocytic leukemia) Complete heart block Coronary artery disease (~09/2022) HLD (hyperlipidemia) Hypothyroidism Lumbar stenosis Myasthenia gravis Nocturnal hypoxemia Osteoarthritis Pacemaker (~09/2022) Home Medications aspirin 81 mg tablet,delayed release 81 mg PO DAILY 04/09/23 [History Last Taken 05/14/23] cholecalciferol (vitamin D3) 25 mcg (1,000 unit) tablet 25 mcg PO DAILY 04/09/23[History Last Taken 05/14/23] cyanocobalamin (vitamin B-12) 1,000 mcg capsule 1,000 mcg PO DAILY 04/09/23 [History Last Taken 05/14/23] ferrous fumarate 325 mg (106 mg iron) tablet 325 mg PO TIDCM 04/09/23 [History Last Taken 05/14/23] furosemide 20 mg tablet (Lasix) 20 mg PO BID 04/09/23 [History Last Taken 05/14/23] levothyroxine 112 mcg tablet (Synthroid) 112 mcg PO DAILY 04/09/23 [History Last Taken 05/14/23] multivitamin 1 tab PO DAILY 04/09/23 [History Last Taken 05/14/23] polyethylene glycol 3350 17 gram oral powder packet 17 g PO DAILY PRN constipation 04/09/23 [History Last Taken Unknown] rivaroxaban 20 mg tablet (Xarelto) 20 mg PO QPM 04/09/23 [History Last Taken 05/13/23] atorvastatin 20 mg tablet 20 mg PO QHS 05/14/23 [History Last Taken 05/13/23] digoxin 125 mcg (0.125 mg) tablet 0.125 mg PO DAILY 05/14/23 [History Last Taken 05/14/23] metoprolol tartrate 25 mg tablet 12.5 mg PO BID 05/14/23 [History Last Taken 05/14/23] Allergy/AdvReac Type Severity Reaction Status Date / Time No Known Allergies Allergy Verified 05/14/23 12:20 Family History Mother Heart disease Father Heart disease Surgical History History of ankle surgery (~12/2020) History of arthroplasty of right shoulder (~2008) Hx of CABG (~07/2021) Social History Smoking Status: Former smoker how long ago did patient quit smokinyrs alcohol intake: current alcohol intake frequency: 0-2 drinks per day Alcohol type: beer, wine and hard liquor details: 1-2 beers per week substance use type: does not use ROS ROS ED Constitutional Constitutional ED: Reports chills, fatigue, fever(s) and subjective Eyes Eyes: Denies change in vision or diplopia ENT ENT ED: Denies rhinorrhea or sore throat Cardiovascular Cardiovascular: Reports edema; Denies chest pain or palpitations Respiratory/Chest Respiratory/Chest: Denies cough or dyspnea Gastrointestinal Gastrointestinal: Denies abdominal pain, melena, nausea or vomiting Genitourinary Genitourinary ED: Denies dysuria or hematuria Musculoskeletal Musculoskeletal: Reports extremity pain; Denies back pain or neck pain Integumentary Reports wounds; Denies abscess or rash Neurologic Neurologic: Denies headache(s), paresthesias or weakness Psychiatric Psychiatric: Denies anxiety or suicidal thoughts Hematologic/Lymphatic Hematologic/Lymphatic: Reports easy bleeding and easy bruising EXAM Physical Exam Const Vital Signs: 05/14/23 12:15 05/14/23 12:18 05/14/23 12:21 Temperature 103.5 F H Temperature Source Temporal Pulse Rate 115 H 73 Respiratory Rate 22 H 18 Respiratory Effort Normal Non-Labored Respiratory Pattern Normal Blood Pressure 126/99 H Blood Pressure Mean 108 Pulse Ox 83 95 Oxygen Delivery Method Room Air Nasal Cannula Oxygen Flow Rate (L/min) 3 05/14/23 12:22 05/14/23 12:54 05/14/23 14:44 Temperature 99.2 F H Temperature Source Oral Pulse Rate 60 Respiratory Rate 14 Respiratory Effort Respiratory Pattern Blood Pressure 94/51 L Blood Pressure Mean 65 Pulse Ox 98 98 Oxygen Delivery Method Nasal Cannula Nasal Cannula Nasal Cannula Oxygen Flow Rate (L/min) 3 2 Positive well nourished and well developed General Appearance ED: well developed and NAD HEENT Reports moist mucous membranes normocephalic and atraumatic Eyes PERRL and EOMs intact bilaterally Neck full ROM and supple Resp normal respiratory effort and clear to auscultation bilaterally Cardio regular rate, regular rhythm and no murmurs GI non-tender and non-distended Auscultation: normoactive bowel sounds Palpation: soft Back/Spine no CVA tenderness General Back: other FROM Extremity Extremity Narrative: Erythematous right lower leg from the mid trevizo down, nontender. Bandages on right lower leg, there is no active bleeding or signs of any infected wounds, the due to appear to be minor superficial healing wounds that the patient stateswere bleeding earlier. Medial right upper arm: Site/wound where apparent port was recently removed, sutures intact, no significant tenderness, there is some ecchymosis nearby, there is a small amount of serosanguineous discharge that is expressible from the incision but no dehiscence. General Extremety ED: Yes edema; Negative for pulses abnormal or tenderness General Extremity: edema bilateral lower extremity Details: moderate (Asymmetric, worse on the right); Negative for pulses abnormal Neuro oriented x3, CN's II-XII intact bilaterally and no sensory deficits noted Sensorium / Orientation: awake and alert Motor Exam: strength 5/5 throughout Skin Skin Narrative: Erythematous right lower leg, which is nontender superficially and asymmetric compared with the left. Both lower legs are tender to deep palpation, pressure needed to induce pitting. Postprocedural wound with sutures intact right upper arm see above, no signs of obvious infection or tenderness/abscess. Small minorsuperficial wounds on the right lower leg anteriorly. Multiple small puncture sites with bandages on them and minor surrounding ecchymosis across the lower abdominal wall. These areas are mildly tender but not severely so. No obvious signs of petechia or purpura. Sepsis Attestation Sepsis Alert: Yes Sepsis Attestation: Agree w/Sepsis Date exam was performed: 05/14/23 Time exam was performed: 15:00 Possible Source of Sepsis: Pulmonary, Skin/soft tissue and Wound Sepsis Organ Dysfunction Criteria Present: SBP < 90 mmHg or MAP < 65 mmHg and Lactic Acid > 2 mmol/L Supportive Findings: fever 103.5. slight bandemia. Fluid Resuscitation Fluid resuscitation indicated?: Yes Fluid Resuscitation ordered: Lesser volume fluid bolus ordered Amount of fluid ordered: 2,000 Reason for lesser fluid bolus:: Concern for fluid overload (seeping BLE peripheral edema), Heart failure (poss) and BP Responded to a lesser volume Sepsis Note Date exam was performed: 05/14/23 Time exam was performed: 16:06 Sepsis Attestation: Sepsis re-evaluation was performed Response to fluids: Fluid responsive hypotension (112/42) MDM MDM MDM Narrative Medical decision making narrative: Obtain no compromise and has a temperature of 103.5, of which she was having symptoms today. Right lower extremity appears to be cellulitic, since he had a blood clot in the port that was removed and he was supposed to have an ultrasound of the right lower extremity today anyway, we had that done which resulted preliminarily before any of the other testing, precision agriculture technician told me it was negative for DVT, so I presume this is cellulitis and may be the cause of his fever. His lungs are diminished throughout, but fairly clear, he had a minor cough according to a family member today but he has not been coughing recently. There is 1 view chest x-ray on my interpretation shows CHF versus bilateral pneumonia. This still has not been read by radiology. Therefore I sent the BNP, it is high at almost 1000. He does not have a prior echocardiogram in our system, I attempted to review the records. His blood counts are reviewed, he has a small amount of bands, cultures were sent and he was started on empiric Zosyn for the cellulitis. He is hypoxic even when we took him off of oxygen, down to 87% on room air at rest. Therefore he is back on a 2 L nasal cannula at 98%. I reexamined his leg looks no different, I do not suspect necrotizing fasciitis here, he does not have any subcutaneous emphysema and he can range all joints there without difficulty. His troponin isabnormal, but very slightly nonspecifically, and less so than it was previously at a different visit. This will be repeated. EKG shows nothing acute, but limited since he has paced rhythm. Clinically he is feeling well and asymptomatic at rest. He was very weak, given all of this plan is for admission. Paged oncology as well as hospitalist to discuss further. History & Record Review Additional record(s) reviewed:: Prior labs and No prior records (echo) Lab Data Attestation: I reviewed the patient's lab results. Labs: Laboratory Results - last 24 hr 05/14/23 12:55 WBC 7.0 RBC 2.84 L Hgb 9.3 L Hct 29.3 L MCV 103.2 H MCH 32.7 H MCHC 31.7 L RDW Std Deviation 83.3 H RDW Coeff of Luis Alberto 22.2 H Plt Count 399 MPV 10.7 Immature Gran % (Auto) 1.600 H Neut % (Auto) 89.7 H Lymph % (Auto) 5.6 L Weld % (Auto) 2.7 Eos % (Auto) 0.0 Baso % (Auto) 0.4 Absolute Neuts (auto) 6.2 Absolute Lymphs (auto) 0.39 L Nucleated RBC % 0.4 Differential Comment SCANNED Polychromasia RARE Anisocytosis 2+ Macrocytosis 1+ PT 18.6 H INR 1.5 APTT 30.3 Sodium 136 Potassium 4.5 Chloride 96 L Carbon Dioxide 35.0 H Anion Gap 5 BUN 31 H Creatinine 1.17 Estim Creat Clear Calc 41.59 Est GFR (MDRD) Af Amer 76 Est GFR (MDRD) Non-Af 63 BUN/Creatinine Ratio 26.5 H Glucose 252 H Lactic Acid 3.8 H* Calcium 8.4 L Total Bilirubin 1.20 H AST 20 ALT 51 Alkaline Phosphatase 92 Troponin I High Sens 111 H B-Natriuretic Peptide 972.1 H Total Protein 5.4 L Albumin 2.7 L Globulin 2.7 Albumin/Globulin Ratio 1.0 Radiography Diagnostic Testing: Clinical Impression(s) from Imaging Studies Chest X-Ray 05/14/23 13:34 IMPRESSION: Poor inspiratory effort. Findings in keeping with CHF. Electronically Signed: Demetri Castillo MD at 13:59 EDT , Rhythm Strip Rhythm Strip: vent pacing Rate: 60 Ectopy: None EKG Initial EKG: Attestation: I personally reviewed and interpreted this EKG as follows: Interpretation: No Acute Injury Pattern and Paced Management Discussion w/another healthcare provider: Hospitalist Discharge Plan Dx/Rx/DC Orders Clinical Impression: Cellulitis of right lower leg, Acquired immunocompromised state, CMML (chronic myelomonocytic leukemia), Hypoxemia, Sepsis Disposition Disposition: Acute Care Hospital [facility] What to do if you have Problems For any increased pain, shortness of breath, bleeding, nausea or vomiting, chestpain, or any unexpected problems, contact your Primary Care Provider. Call [facility] ([phone]) or report to the closest Emergency Room. Call 911 if necessary. 05/14/232232 <Electronically signed by Pedro Diaz MD> Cosigner Signature (if applicable): CC: Hamzah Pruitt ~ Signed [facility] Work Phone: [phone]) 397-977207-06-2023 History and physical note Author Mary Prather [facility] May 14, 2023 5:26pm Note Date/Time May 14, 2023 4:54p [facility] Medical Records Department [address] [address] H&P Exam - Hospitalist 05/14/23 1647 MR#: [id number] Acct: [id number] Name: SRINI LUIS Rep #:[id number] : 1935 87 From: Mary Prather MD PCP: Hamzah Pruitt Status:ADM IN Location: [place] [id number] HPI - General General Date of Admission: 05/14/23 Date of Service: 05/14/23 Chief Complaint: Chills, RLE pain HPI Narrative Mr. Luis is an 87-year-old male with history of CVA, CMML on chemotherapy [facility]14[facility]2023 due to weakness and rigors. Inthe ED he was found to have a temperature of 103.5 and was given Tylenol and this improved and he felt much better. Was noted to have bilateral lower extremity swelling right greater than left and was scheduled to get an outpatient DVT scan in the next 1 to 2 days so this was performed in the ED and no new DVT noted and it was presumed that this was cellulitis and likely source of his infection. White blood cell count 7.0 with 89.7% neutrophils, hemoglobin9.3 with no baseline available, creatinine 1.17 also with no baseline available and lactic 3.8. He did have 83% O2 sat on room air so chest x-ray obtained and chest x-ray did have findings suggestive of fluid overload and he had a BNP of 972 however given concerns for sepsis and his blood pressure soft he was given 2L of IVF and no Lasix especially given his O2 sat increased to 98% on 2 L. Hospitalist consulted for admission. Patient evaluated with family at bedside. He reports that his right leg has been aching and hurting for the past 2 days but this morning was bothering him more and he also felt the chills and weaknessprompting him to come to the emergency department because he was worried he had a blood clot as he just had a chronic Mediport that has been in his right upper arm removed several days ago due to thrombus information there and has had some weeping of serosanguineous fluid from there but no pus. He said both of his lower extremities always stays swollen and he takes Lasix 3 times a day at home for this and subsequently has to urinate most hours of the night. Denies feversnoted before this day, does note that his skin will spontaneously tear open and he will get bleeding or wounds on his legs and does have a Band-Aid over 1 on his right trevizo. Denies this happening before. Denies any weight changes, denies any chest pain or shortness of breath and denies any consistent coughing. No other complaints at this time [facility] Medical History (Updated 05/14/23 @ 17:[address] Mary Prather MD) Atheroembolism of foot Benign essential HTN Cerebral vascular accident (~08/2022) CMML (chronic myelomonocytic leukemia) Complete heart block Coronary artery disease (~09/2022) HLD (hyperlipidemia) Hypothyroidism Lumbar stenosis Myasthenia gravis Nocturnal hypoxemia Osteoarthritis Pacemaker (~09/2022) Home Medications aspirin 81 mg tablet,delayed release 81 mg PO DAILY 04/09/23 [History Last Taken 05/14/23] cholecalciferol (vitamin D3) 25 mcg (1,000 unit) tablet 25 mcg PO DAILY 04/09/23[History Last Taken 05/14/23] cyanocobalamin (vitamin B-12) 1,000 mcg capsule 1,000 mcg PO DAILY 04/09/23 [History Last Taken 05/14/23] ferrous fumarate 325 mg (106 mg iron) tablet 325 mg PO TIDCM 04/09/23 [History Last Taken 05/14/23] furosemide 20 mg tablet (Lasix) 20 mg PO BID 04/09/23 [History Last Taken 05/14/23] levothyroxine 112 mcg tablet (Synthroid) 112 mcg PO DAILY 04/09/23 [History Last Taken 05/14/23] multivitamin 1 tab PO DAILY 04/09/23 [History Last Taken 05/14/23] polyethylene glycol 3350 17 gram oral powder packet 17 g PO DAILY PRN constipation 04/09/23 [History Last Taken Unknown] rivaroxaban 20 mg tablet (Xarelto) 20 mg PO QPM 04/09/23 [History Last Taken 05/13/23] atorvastatin 20 mg tablet 20 mg PO QHS 05/14/23 [History Last Taken 05/13/23] digoxin 125 mcg (0.125 mg) tablet 0.125 mg PO DAILY 05/14/23 [History Last Taken 05/14/23] metoprolol tartrate 25 mg tablet 12.5 mg PO BID 05/14/23 [History Last Taken 05/14/23] Allergy/AdvReac Type Severity Reaction Status Date / Time No Known Allergies Allergy Verified 05/14/23 12:20 Family History Mother Heart disease Father Heart disease Surgical History History of ankle surgery (~12/2020) History of arthroplasty of right shoulder (~2008) Hx of CABG (~07/2021) Social History Smoking Status: Former smoker how long ago did patient quit smokinyrs alcohol intake: current alcohol intake frequency: 0-2 drinks per day Alcohol type: beer, wine and hard liquor details: 1-2 beers per week substance use type: does not use ROS ROS Narrative General: Fever HENT: Denies headache, denies stuffy nose, denies sore throat EYES: Denies changes in vision Resp: Denies consistent cough, denies shortness of breath Cardiac: Denies chest pain GI: Denies abdominal pain, denies changes in bowel, denies nausea/vomiting : Denies changes in urination Extremity: chronic BLE swelling, RLE redness > left MSK: Gen weakness Neuro: Denies any numbness/tingling Heme: Easy bleeding and skin tears, occasional weeping in legs Skin: RLE redness Psychiatric: No complaints voiced Vital Signs Vital Signs Vital Signs: 05/14/23 12:15 05/14/23 12:18 05/14/23 12:21 Temperature 103.5 F H Temperature Source Temporal Pulse Rate 115 H 73 Respiratory Rate 22 H 18 Respiratory Effort Normal Non-Labored Respiratory Pattern Normal Blood Pressure 126/99 H Blood Pressure Mean 108 Pulse Ox 83 95 Oxygen Delivery Method Room Air Nasal Cannula Oxygen Flow Rate (L/min) 3 05/14/23 12:22 05/14/23 12:54 05/14/23 14:44 Temperature 99.2 F H Temperature Source Oral Pulse Rate 60 Respiratory Rate 14 Respiratory Effort Respiratory Pattern Blood Pressure 94/51 L Blood Pressure Mean 65 Pulse Ox 98 98 Oxygen Delivery Method Nasal Cannula Nasal Cannula Nasal Cannula Oxygen Flow Rate (L/min) 3 2 05/14/23 16:25 Temperature 99.2 F H Temperature Source Oral Pulse Rate 60 Respiratory Rate 16 Respiratory Effort Respiratory Pattern Blood Pressure 112/59 L Blood Pressure Mean 76 Pulse Ox 98 Oxygen Delivery Method Nasal Cannula Oxygen Flow Rate (L/min) 2 Weight Weight: 81.4 kg Body Mass Index (BMI) 28.0 Physical Exam Narrative General: Alert, oriented, no apparent distress HEENT: Atraumatic, normocephalic Eyes: Anicteric, normal conjunctiva, extraocular movements grossly intact Neck: Supple Respiratory: Somewhat diminished bilaterally, normal respiratory effort Cardiovascular: Regular rate and rhythm GI: Soft, nontender, nondistended Extremities: 2-3+ bilateral lower extremity edema Musculoskeletal: Moving all extremities Neuro: No overt focal neurological deficits Skin: Right arm wrapped where sutures are, right trevizo with abrasion and erythema Psych: Cooperative Results Lab / Micro Data 05/14/23 12:55 05/14/23 12:55 Labs: Laboratory Results - last 24 hr 05/14/23 12:55: WBC 7.0, RBC 2.84 L, Hgb 9.3 L, Hct 29.3 L, MCV 103.2 H, MCH 32.7 H, MCHC 31.7 L, RDW Std Deviation 83.3 H, RDW Coeff of Luis Alberto 22.2 H, Plt Count 399, MPV 10.7, Immature Gran % (Auto) 1.600 H, Neut % (Auto) 89.7 H, Lymph% (Auto) 5.6 L, Weld % (Auto) 2.7, Eos % (Auto) 0.0, Baso % (Auto) 0.4, AbsoluteNeuts (auto) 6.2, Absolute Lymphs (auto) 0.39 L, Nucleated RBC % 0.4, Differential Comment SCANNED, Polychromasia RARE, Anisocytosis 2+, Macrocytosis 1+, PT 18.6 H, INR 1.5, APTT 30.3, Sodium 136, Potassium 4.5, Chloride 96 L, Carbon Dioxide 35.0 H, Anion Gap 5, BUN 31 H, Creatinine 1.17, Estim Creat ClearCalc 41.59, Est GFR (MDRD) Af Amer 76, Est GFR (MDRD) Non-Af 63, BUN/Creatinine Ratio 26.5 H, Glucose 252 H, Lactic Acid 3.8 H*, Calcium 8.4 L, Total Bilirubin 1.20 H, AST 20, ALT 51, Alkaline Phosphatase 92, Troponin I High Sens 111 H, B-Natriuretic Peptide 972.1 H, Total Protein 5.4 L, Albumin 2.7 L, Globulin 2.7, Albumin/Globulin Ratio 1.0 Rhythm Strip Rhythm Strip: vent pacing Rate: 60 Ectopy: None Radiology Impression Chest X-Ray 05/14/23 13:34 IMPRESSION: Poor inspiratory effort. Findings in keeping with CHF. Electronically Signed: Demetri Castillo MD at 13:59 EDT , Assessment & Plan Assessment/Plan (1) Sepsis: (2) Hypoxemia: (3) CMML (chronic myelomonocytic leukemia): (4) Cellulitis of right lower leg: (5) Complete heart block: (6) Pacemaker: (7) Coronary artery disease: PLAN: Plan #Sepsis 2/2 likely RLE cellulitis -Per verbal checkout from ED physician pt had SBP in the 80's and lactic acid resulted at 3.8 with left shift on WBC and likely source of RLE -Preliminary results of right lower extremity negative for DVT, presumably cellulitis -Bld cx -2L IVF ordered and BP improved, not given further fluids d/t concomitant concern for fluid overload -Broad spectrum abx -Trend lactic #Acute hypoxia -Unclear etiology, there is unclear if it was fluid overload based on BNP of 972and chest x-ray appeared congested with lower extremity edema however he improved with antibiotics, fluids and 2 L of O2 -Chest x-ray was poor inspiration -We will obtain echocardiogram -I's and O's, daily weights #Elevated lactic acid -as above #History of coronary artery disease/pacemaker -CABG x4 2 years ago -Pacemaker last fall -Continue statin and aspirin #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 -No baseline, unclear if this is elevated for him however BUN was somewhat up 31 -Trend BMP -Patient received IVF #Microcytic anemia -Unclear baseline, monitor for signs or symptoms of bleeding -Continue oral iron supplementation -Daily CBC #Hypothyroidism -Continue Synthroid #DVT ppx: Jesse Prather MD Time spent in the patient's overall evaluation,decision-making process, review of diagnostic data, adjustment of management, discussion with other providers, nursing nursing and ancillary staff involved in patient's care documentation, 76Minutes Sepsis Attestation Sepsis Alert: Yes Sepsis Attestation: Agree w/Sepsis Date exam was performed: 05/14/23 Time exam was performed: 04:20 Possible Source of Sepsis: Skin/soft tissue Sepsis Organ Dysfunction Criteria Present: SBP < 90 mmHg or MAP < 65 mmHg and Lactic Acid > 2 mmol/L Fluid Resuscitation Fluid resuscitation indicated?: Yes Fluid Resuscitation ordered: Lesser volume fluid bolus ordered Amount of fluid ordered: 2,000 Reason for lesser fluid bolus:: Concern for fluid overload Charges/Coding Visit Charges Inpatient E&M: 02978 Init Hosp L3 05/14/23 1726 <Electronically signed by Mary Prather MD> Cosigner Signature (if applicable): CC: Dr. Mary Prather MD; Cameron Edmond~ Signed [facility] Work Phone: 1(905) 810-983807-06-2023 Miscellaneous Notes* Telephone Encounter - Ileana Sosa RN - 05/14/2023 9:[address] Galloway patient CMML On vidaza Patient here today for CBC/poss transfusion. Patient has new c/o constant right lower extremity pain from the knee to his ankle. Spoke to Dr. Gates who advised an US of his RLE. Ileana Sosa RN documented in this encounterMercy Health [facility]07-05-2023 Miscellaneous Notes* Telephone Encounter - Magali Payne RN - 05/13/2023 2:15 PM EDT Office visit note from Srini' visit with Dr. Faith on 05/11/2023 faxed to [facility] at [phone]. Fax confirmation sheet received. Magali Payne RN documented in this encounterMercy Health Perrysburg Hospital07-05-2023 History of Present illness Narrative* Sammie Moeller RN - 05/13/2023 2:14 PM EDT patient had right arm port removed on 05/11/23, dressing over site had serous sanguinous drainage on it, dressing was removed site slightly ecchymotic sutures intact and no further drainage noted. Areacleaned around wound and clean 2x2 gauze and opsite applied, per request of patient. documented in this encounterMercy Health Perrysburg Hospital07-03-2023 Nurse Note* Magali Payne RN - 05/11/2023 5:16 PM EDT REVIEW OF SYSTEMS: General: The patient NOTES fatigue, denies weight loss, denies weight gain, denies feeling hot, anddenies feelings of cold. Eyes: The patient denies glaucoma, denies eye injury/surgery, wears glasses or contacts. Ear/Nose/Throat: The patient denies allergies, denies hayfever, denies ear infections, and denies bloody noses. Cardiovascular: The patient denies chest pain, NOTES heart disease, NOTES high blood pressure,denies cardiac stent, denies prior heart attack, NOTES irregular heart beat, NOTES high cholesterol, denies poor circulation, NOTES heart failure, other cardiac issues, denies claudication, denies cold feet, denies peripheral arterial stent. Respiratory: The patient denies tuberculosis, denies pneumonia, denies frequent cough, denies pulmonary embolism, denies shortness of breath, and denies coughing up blood. Gastrointestinal: The patient denies difficulty swallowing, denies acid reflux, denies ulcers, denies vomiting, denies jaundice/hepatitis, denies gallbladder problems, denies black or tarry stools, denies hemorrhoids, denies bleeding from rectum, NOTES diverticulitis, denies constipation, denies diarrhea, denies loss of stool control, and denies hernias. Kidney/Bladder: The patient denies kidney stones, denies urine infections, and denies bloody urine. Skin: The patient denies a history of skin cancer, denies bleeding/changing moles, and denies a history of skin rash. Neurologic: The patient denies a history of epilepsy/convulsions, denies headaches, denies head/spinal injuries, and NOTES stroke/TIA. Psychiatric: The patient denies psychiatric medications, denies depression, and denies voices, denies substance abuse. Endocrine: The patient NOTES thyroid disorders, denies diabetes, and denies hormonal problems. Hematologic: The patient NOTES a history of bruising, NOTES bleeding, and NOTES anemia, NOTES bloodclots. Infections: The patient denies a history of measles and mumps, denies rheumatic fever, and denies sexually transmitted diseases. Musculoskeletal: The patient denies back pain/injury, denies back problems, denies sciatica, deniesknee/foot trouble, NOTES arthritis, or denies gout. When was patient's last Mammogram screening? N/A Last Colonoscopy: 09/27/2015 Magali Payne RN documented in this encounterMercy Health Perry[facility] Hospital07-03-2023 Instructions* Patient Instructions* Magali Payne RN - 05/11/2023 4:58 PM EDT The following instructions are important for you related to your office visit today with the [facility] General Surgeons. Instructions After Port a Cath Removal You can remove the dressing in two days. If the dressing becomes soaked or had significant drainage, the dressing should be changed. If there is minor bleeding from this skin edge, you should hold pressure on the incision until the bleeding stops. If there is continued bleeding, you should contact our office immediately. You do not need to leave a dressing on the wound after two days. If the wound shows signs of redness, inflammation, or purulent drainage, you should contact our office immediately. You should keep the wound dry for the first two days. After that time, you may wash the wound with gentle soap and water. The wound should not be immersed in a pool, bathtub, or even hot tub. You may take tylenol or ibuprofen as needed for pain. We prefer to check the incision and remove the stitches in our office when ready. Please make an appointment to return to our office in 7 days. Please do not remove the stitches yourself without approval from our office. If you note any additional difficulties, questions, or concerns, you should contact our office immediately @ [phone] and ask to be transferred to the General Surgery department. documented in this encounterMercy Health Perry[facility] Hospital07-03-2023 History of Present illness Narrative* Magali Payne RN - 05/11/2023 4:46 PM EDT UNIVERSAL PROTOCOL / SAFETY CHECKLIST Procedure to be Performed: Removal of right arm port Sign In: A Moment of CARE was completed. Personnel directly involved with the procedure wore the appropriate PPE (Personal Protective Equipment). No special equipment needed. Patient/Surrogate Stated/Verified: PATIENT VERIFIED(optional for EMERGENT procedures): Patient name, Date of , Relevant allergies, and The intended procedure Time Out Communication: Intended patient and procedure match the source documents. Consent documented and matches the intended procedure. Relevant labs, photos, and/or imaging studies have been reviewed. Correct side/site marked and visible. Medications required for procedure verified. No fire risk assessment and interventions applicable. No implant(s) inserted. Sign Out: SIGN OUT (optional for EMERGENT procedures): No specimen collected. No instruments, equipment or retained foreign bodies applicable. Post-procedure follow-up management communicated and Plan of Care Visit completed when applicable. Magali Payne RN * Shorty Faith MD - 05/11/2023 4:40 PM EDT FOLLOW UP VISIT - PORTACATH REMOVAL NAME: Sr[facility] NO.: [id number] DATE OF SERVICE: 05/11/2023 : 1935 REFERRING PHYSICIAN: DO Srini Rivas is a patient Dr. Galloway is following for myelodysplastic syndrome. The patient has a right armPowerPort placed earlier this year. The patient is on Xarelto but developed a right internal jugular DVT. Dr. Galloway recommended the arm port to be removed. The patient is hold his Xarelto for the last 2 days. Srini returns for portacath removal. VITALS: Blood pressure 110/56, pulse 60, temperature 36.4 C (97.6 F), height 170.2 cm (5' 7), weight 83.9 kg (185 lb), SpO2 98 %. On examination, the port incision site is clean and intact. PROCEDURE: PORTACATH REMOVAL The risks, benefits and anticipated outcomes of the procedure, the risks and benefits of the alternatives to the procedure, and the roles and tasks of the personnel to be involved, were discussed with the patient, and the patient consents to the procedure and agrees to proceed. After consent was obtained and the site, person, and procedure verified, the patient`s skin was prepped and draped in the usual fashion. A combination of Lidocaine and Marcaine was injected into the skin. A linear incision was made over the prior incision and dissection was carried down to the portacath. The port was then dissected from it's pocket. The port and catheter were then removed. The distal tip of the port was intact. The skin was then closed with 4- 0 nylon sutures. The patient tolerated the procedure well. Assessment IMPRESSION: Status post right arm port a cath removal PLAN: If the patient notes any problems or signs of wound infections, he should contact me immediately. Diagnoses: (D46.9) MDS (myelodysplastic syndrome) (HCC) (primary encounter diagnosis) (I82.A21) DVT of axillary vein, chronic right (HCC) Return to Clinic: The patient is instructed to follow-up with staff in 1 week for suture removal. Shorty Faith MD documented in this encounterMercy Health [facility]06-30-2023 History of Present illness Narrative* Lena Colon RN - 05/08/2023 2:30 PM EDT Patient agrees to get lab work done on Thursday at 3pm then come to infusion center for treatment. Scheduled to go to surgical office at 3:45 for port removal. Lena Colon RN documented in this encounterMercy Health Perry[facility] Hospital06-29-2023 Miscellaneous Notes* Telephone Encounter - Esha Jackson LPN - 05/07/2023 4:09 PM EDT [facility] nurse notified of Dr Arita office contacting them for apt regarding port removal. Instructedthem to hold Xarelto after tomorrows dose. Nurse voices understanding. Esha Jackson LPN * Telephone Encounter - Baljinder Galloway DO - 05/07/2023 4:00 PM EDT I spoke with Dr. Faith. He is going to have his office staff contact [facility] to arrange office visit on Thursday to remove the port. Please ask the nursing staff at [facility] to hold his Xarelto after tomorrow's dose. Baljinder Galloway DO * Telephone Encounter - Israel Pruitt DO - 05/07/2023 9:[address] Galloway, Discussed the case of Mr. Luis today with interventional radiologist Dr. Manjeet Btuler at [facility] interventional radiology this morning. We reviewed the patient's case The patient was recommended reviewing the study to continue his port in place on anticoagulation therapy with Xarelto until the patient does not need port placement completing chemotherapy for leukemia Again patient was recommended to keep port in place with anticoagulation therapy on board through the duration of his time requiring port for chemotherapy We will be reaching out to the patient and let him know the plan Please let your office staff know that this has been decided as written and if you have any concerns or questions regarding the recommendations by interventional radiology please let me know and/or contact Dr. Manjeet Butler at [phone] to discuss further. As you would expect I am not sure how long this port needs to be in and that is going to be up to decision making regarding the patient's response to chemotherapy. Thank you Israel Pruitt DO FACOI * Telephone Encounter - Sinai Crenshaw Pss - 05/07/2023 9:40 AM EDT Daughter called stating she would like to speak with David. She also asks that if there are schedule changes/medications/etc that we contact Adrien Quinones directlyto prevent any confusion. Nurse # at W -. [phone] fax [phone]. This has been added to demographics. documented in this encounterMercy Health Perrysburg Hospital06-28-2023 Miscellaneous Notes* Telephone Encounter - Esha Jackson LPN - 05/06/2023 5:09 PM EDT Per second phone, seems pt is going to be seen at [facility] tomorrow at 4pm. We were unaware of this as it can be difficult to see all of [facility] appointments. Esha Jackson LPN * Telephone Encounter - Esha Jackson LPN - 05/06/2023 3:08 PM EDT This morning, a nurse from Dr Julio Butler (placed the port) office called to say that Dr Butler had reviewed the US report and said it did not need to be removed emergently and he needed to be followed by his PCP for anticoagulation. I did make them aware that he was already on Xarelto and ASA. I suggested that she please ask the surgeon to contact Dr Galloway to discuss this pt. Nurse agreed and stated she would do so. Esha Jackson LPN * Telephone Encounter - Sammie Moeller RN - 05/06/2023 2:46 PM EDT Please per patient, notify him with the plan from [facility] and also need to notify the nurses and [facility] so they may also be aware of plan. * Telephone Encounter - Cami Plasencia - 05/06/2023 9:20 AM EDT Called [phone] for Manjeetzeus Butler Spoke with someone in the office. Stated that she would have the provider take a look and reach outto the pt and schedule. Keep encounter open till pt is scheduled * Telephone Encounter - Cami Plasencia - 05/05/2023 5:03 PM EDT Spoke with pt and scheduled for tomorrow afternoon * Telephone Encounter - Esha Jackson LPN - 05/05/2023 4:45 PM EDT Pt had port placed at [facility] in IR. Our surgical dept states they can see him for a consult and removal. Please schedule pt for gen surg for port removal due to DVT. Esha Jackson LPN * Telephone Encounter - Esha Jackson LPN - 05/05/2023 4:09 PM EDT Yes he states he is. Spoke with nurse at [facility] and she verified as well. Esha Jackson LPN * Telephone Encounter - Baljinder Galloway DO - 05/05/2023 3:53 PM EDT Can you see if he is still taking Xarelto and aspirin? Baljinder Galloway DO * Telephone Encounter - Esha Jackson LPN - 05/05/2023 3:48 PM EDT Radiologist calls to say this pt's US report is final. Positive for DVT. Please review. Esha Jackson LPN documented in this encounterMercy Health [facility] Hospital06-28-2023 Miscellaneous Notes* Telephone Encounter - Lakesha Pabon MA - 05/06/2023 3:47 PM EDT Nurse called and notified per iram digoxin level looks good. Continue same dose. Nurse agreeable * Telephone Encounter - Iram Johnson APRN.OFFICE MACHINES SALES REPRESENTATIVE - 05/06/2023 3:27 PM EDT Digoxin level looks good. Continue same dose. documented in this encounterMercy Health Perry[facility] Hospital06-28-2023 History of Present illness Narrative* Israel Pruitt DO - 05/06/2023 3:28 PM EDT After review with my COPRA SAMPLER here in the office and reviewing multiple telephone notes it seems the patient is scheduled for port removal at [facility] tomorrow on May 07 . Is this true and all is taken care of for this patient ? Messages have been directed at me this afternoon to manage this patients acute right IJ DVT as a result of the patients indwelling port for chemotherapy Please confirm that all is set for this patient for tomorrow on the at [facility] IR Thanks , Israel Pruitt DO * Ginna Em RN - 05/06/2023 8:52 AM EDT CDM Telephonic Outreach Provider Action/FYI Israel V Tirmonia, DO Multiple people have put notes in about a right internal jugular DVT that was discovered yesterday,and patient is waiting for word on what to do about his port. Says he was finally told to contact you. I don't know the reason why so advised him to call your office. Please have your staff reach out to the patient with any further orders or instructions. Thank you, Ginna Em lead janitorDesk Director HTN Needs SDH but got off the phone before I could ask. Spoke with patient who was diagnosed with DVT yesterday in right internal jugular. He is not havingany associated symptoms. He handed the phone to his assisted living nurse and a friend, and I explained that I can let him know what I see in the chart but I cannot arrange whatever treatment is necessary. [facility] notes indicate that several caregivers at [facility] are involved, and the patient is waiting for a call from someone about needing to have his port removed. He said someone told him this morningto call his PCP. Patient states he left a message for his PCP this morning but said he did not speak with anyone. Advised him to call back and speak with someone. Sent a message to PCP in case patient has difficulty getting through. Appointments for Next 60 Days Date Time Provider Location Dept Phone 05/06/2023 2:00 PM [facility] [place] [phone] 05/07/2023 2:00 PM [facility]AT[facility] [place] [phone] 05/08/2023 2:00 PM [facility]ATMENT [facility] [place] [phone] 05/11/2023 3:30 PM TREATMENT RM [facility] [place] [phone] 05/13/2023 2:00 PM T[facility]ATMENT RM [facility] [place] [phone] 05/14/2023 9:00 AM LAB [facility] [place] [phone] 05/19/2023 2:20 PM GUILLERMINA [facility] [phone] 05/21/2023 9:00 AM LAB [facility] [place] [phone] 05/25/2023 9:00 AM LAB [facility] [place] [phone] 05/28/2023 9:00 AM LAB [facility] [place] [phone] 05/29/2023 2:45 PM LAB [facility] [phone] 05/29/2023 3:10 PM BALJINDER GALLOWAY [place] [phone] 06/01/2023 11:00 AM TREATMENT RM 10 [facility] [place] [phone] 06/02/2023 1:00 PM TREATMENT RM 13 [facility] [place] [phone] 06/03/2023 1:30 PM TREATMENT RM 13 [facility] [place] [phone] 06/04/2023 1:30 PM TREATMENT RM 13 [facility] [place] [phone] 06/05/2023 1:30 PM T[facility]ATMENT RM [facility] [place] [phone] 06/08/2023 1:30 PM TREATMENT RM 13 [facility] [place] [phone] 06/09/2023 1:30 PM [facility] [place] [phone] 06/11/2023 9:00 AM LAB [facility] [place] [phone] Contacted for: Routine Telephonic Outreach Contact made with patient: Yes Patient identified by name and date of . Discussed care with patient Are you experiencing any new or worsening symptoms you need to talk about today? No Disease Specific Do you check your blood pressure at home? No Do you have new or worsening shortness of breath with activity? No Based on treating engineer helper, the following disposition is advised: No symptoms or symptoms present, not severe. Routed to: No Action Needed MARCELO Education Provided this Outreach: No Ginna Em RN May 06, 2023 12:58 PM documented in this encounterMercy Health Perrysburg Hospital06-28-2023 Miscellaneous Notes* Telephone Encounter - Guillermina Cummings APRN.OFFICE MACHINES SALES REPRESENTATIVE - 05/06/2023 2:08 PM EDT Orders filed. * Telephone Encounter - Yadira Walsh LPN - 05/05/2023 4:49 PM EDT Images from the original note were not included. DO Yadira Valencia LPN Lena, Please let patient know that he is free of immunity from Hepatitis B Will need immunization booster Please pend for signature Patient now lives in [place] . Appreciate us finding a way that the patient gets this immunization in [place]. 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 Hep B Surface Ab Quant >=12.00 mIU/mL <8.00 Low Resulting Agency CCM documented in this encounterMercy Health Perrysburg Hospital06-28-2023 Miscellaneous Notes* Telephone Encounter - Guillermina Cummings APRN.CNP - 05/06/2023 2:06 PM EDT Noted. * Telephone Encounter - Baljinder Galloway DO - 05/06/2023 12:34 PM EDT No.I have not previously ordered it. PCP needs to put the order in. Baljinder Galloway DO * Telephone Encounter - Esha Jackson LPN - 05/06/2023 12:13 PM EDT Guillermina Cummings CNP for Dr Pruitt at [facility] calls to states the pt needs a Hep B booster. Their office is asking since the pt lives in [place] now if he could get his Hep B in [place]. [facility], but apparently a dillon doctor would need place order. Guillermina is asking if you would be willing the place the order. Please advise. Esha Jackson LPN documented in this encounterMercy Health Perrysburg Hospital06-27-2023 Miscellaneous Notes* Telephone Encounter - Yadira Walsh LPN - 05/05/2023 4:39 PM EDT Left message for pt to call for the message below Yadira Walsh LPN * Telephone Encounter - Lena Cruz RN - 05/05/2023 2:05 PM EDT BMP and ProBNP orders pended for 4 weeks. Please review and advise. Lena Cruz RN * Telephone Encounter - Lena Cruz RN - 05/05/2023 2:05 PM EDT Images from the original note were not included. Received: 2 days ago Israel Pruitt, DO Lena Paredes, Please pend a BNP and a BMP for 4 weeks on current Lasix dose Lasix dose just elevated, close observation of labs Renal function and renal status Thanks, Dr Pruitt documented in this encounterMercy Health Perrysburg Hospital06-27-2023 Miscellaneous Notes* Telephone Encounter - Lakesha Pabon MA - 05/05/2023 2:05 PM EDT Called and spoke with the nurse's station at [facility] ([phone]) And nurse was notified EKG looks ok but that we got a troponin level instead of the digoxin level that was ordered. Nurse states they did not draw a digoxin level they thought the order said troponinso they will go ahead and draw the digoxin level early in the morning tomorrow and fax us results when they receive them * Telephone Encounter - Iram Johnson APRN.CNP - 05/05/2023 11:51 AM EDT I see the patient's EKG, it looks fine. Did he get a digoxin level? For some reason I got a troponin level instead. * Telephone Encounter - Ginna Orellana - 05/05/2023 10:43 AM EDT Called patient to confirm appointment tomorrow for EKG and labs. Patient stated that he had an EKG and blood work done yesterday at the facility he is at for Dr Pruitt. He is asking if that will work or if we need to do another EKG and more labs. Can you please let him know * Telephone Encounter - Shilpa Abraham MA - 04/24/2023 3:45 PM EDT Patient was notified of the Providers message in chart and letter/order was faxed to [phone]. * Telephone Encounter - Iram Johnson APRN.CNP - 04/24/2023 3:19 PM EDT Have the patient start digoxin 125 mcg daily. EKG and troponin level in 1 week. * Telephone Encounter - Jessica Nix - 04/24/2023 11:39 AM EDT Nurse was calling stating they need a order for the digoxin he had gotten a refill script on the nurse stated that since he has been there he has not taken this so he will need a order for this so she is asking that someone call her. She also gave a fax number so we can fax over the notes from when the medication was started Fax number is [phone] [address] [place] Can you please help with this documented in this encounterMercy Health Perrysburg Hospital06-26-2023 History of Present illness Narrative* Jyothi Grimes RN - 05/04/2023 2:18 PM EDT Pt educated on coming in on Mondays and per Dr. Galloway's request to check CBC. Pt verbalized understanding. Jyothi Grimes RN documented in this encounterMercy Health Perrysburg Hospital06-23-2023 History of Present illness Narrative* David Cervantes APRN.CNP - 05/01/2023 12:52 PM EDT Chief Complaint Patient presents with: Follow Up HPI: Srini uLis is a 87 year old male who presents here today for follow up CML. Per Dr. Galloway's previous note: H/o coronary artery disease (four-vessel CABG), stroke, paroxysmal atrial fibrillation, hypertension, hypothyroidism, heart block (PPM) who underwent a work-up for macrocytic anemia. Patient had a history of B12 deficiency associated with macrocytic anemia. However he had become progressively more anemic and was seen by Dr. Rowell and underwent bone marrow biopsy in 10/2022. Cytogenetics (see separate report) revealed a normal male karyotype: 46,XY[20]. The myeloid NGS panel (see separate report) identified the following variants (with VAFs): SF3B1 p.H662Q (41.7%) and TET2 p.[id number]*6 (46%). 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 The threshold for absolute monocytosis in CMML has since been lowered to 0.5 k/uL (from 1.0 k/uL in the 2016 WHO), which accounts for the discrepancy. Further, the category of CMML-0 (which this neoplasm would have otherwise been classified as) has been eliminated by both classification systems in lieu of a two-tiered blast-basedgrading scheme (of CMML-1 and -2 only). The patient had a single CBC since 2019 (specifically 08/24/2022) in which there was not a relative monocytosis; this is attributable to transiently increased n eutrophils in the setting of acute stroke/ischemia, and is here regarded as an outlier. Normal cytogenetics. Current therapy: 1) Azacitidine. Cycle 10/14/2023. Appetite:I think good. Energy level:I feel lazy. Denies fevers. Mouth:denies sores Resp:denies cough or sob Cardiac:denies chest pain/palpitations GI:denies abd pain, n/v, moving bowels I go threw phases keeping enough miralax in the system. normally tries to take miralax daily :denies dysuria/hematuria Extrem:denies pain, +edema Neuro:h/o stroke L sided numbness Skin:denies rashes Heme:denies bleeding The ROS is otherwise negative. Past medical history, appointments, medications, allergies reviewed. No changes. EXAM: BP 111/52 Pulse 61 Temp 36.3 C (97.4 F) (Temporal) Wt 83.2 kg (183 lb 8 oz) SpO2 97% BMI 28.74 kg/m APPEARANCE Well appearing, alert, in no acute distress, well-hydrated, well nourished. HEART RRR with normal S1 and S2, no murmurs LUNG clear to auscultation LYMPH NODES No cervical lymphadenopathy, No supraclavicular lymphadenopathy, and No axillary lymphadenopathy. ABDOMEN bowel sounds normoactive, soft, non-tender EXTREMITIES chronic edema to BLE/hands NEURO Awake, alert and oriented x 3, using wheeled walker, and No involuntary motions. SKIN Skin color, texture, turgor normal, no suspicious rashes or lesions LABS: Component Latest Ref Rng & Units 03/20/2023 04/08/2023 05/01/2023 WBC 3.70 - 11.00 k/uL 5.16 4.67 1.97 (L) RBC 4.20 - 6.00 m/uL 2.80 (L) 3.02 (L) 2.82 (L) Hemoglobin 13.0 - 17.0 g/dL 9.9 (L) 10.4 (L) 9.6 (L) Hematocrit 39.0 - 51.0 % 30.8 (L) 32.3 (L) 29.8 (L) MCV 80.0 - 100.0 fL 110.0 (H) 107.0 (H) 105.7 (H) MCH 26.0 - 34.0 pg 35.4 (H) 34.4 (H) 34.0 MCHC 30.5 - 36.0 g/dL 32.1 32.2 32.2 RDW-CV 11.5 - 15.0 % 21.1 (H) 21.1 (H) 21.8 (H) Platelet Count 150 - 400 k/uL 382 298 128 (L) MPV 9.0 - 12.7 fL 11.2 11.3 10.9 Neut% % 68.8 72.7 Abs Neut (ANC) 1.45 - 7.50 k/uL 3.55 3.40 Lymph% % 20.3 17.6 Abs Lymph 1.00 - 4.00 k/uL 1.05 0.82 (L) Weld% % 7.4 5.8 Abs Weld <0.87 k/uL 0.38 0.27 Eosin% % 2.1 0.9 Abs Eosin <0.46 k/uL 0.11 0.04 Baso% % 0.6 2.6 Abs Baso <0.11 k/uL 0.03 0.12 (H) Immature Gran % % 0.8 0.4 IMMATURE GRANS (ABS) <0.10 k/uL 0.04 <0.03 NRBC /100 WBC 0.6 Absolute nRBC <0.01 k/uL 0.03 (H) DTYPE Auto Auto Component Latest Ref Rng & Units 03/20/2023 05/01/2023 Protein, Total 6.3 - 8.0 g/dL 5.3 (L) Albumin 3.9 - 4.9 g/dL 3.5 (L) Calcium 8.5 - 10.2 mg/dL 8.8 8.6 Bilirubin, Total 0.2 - 1.3 mg/dL 0.9 Alkaline Phosphatase 38 - 113 U/L 111 AST 14 - 40 U/L 26 ALT 10 - 54 U/L 35 Glucose 74 - 99 mg/dL 115 (H) 111 (H) BUN 9 - 24 mg/dL 32 (H) 24 Creatinine 0.73 - 1.22 mg/dL 1.05 1.07 Sodium 136 - 144 mmol/L 141 137 Potassium 3.7 - 5.1 mmol/L 3.9 4.5 Chloride 97 - 105 mmol/L 102 98 CO2 22 - 30 mmol/L 35 (H) 33 (H) Anion Gap 9 - 18 mmol/L 4 (L) 6 (L) eGFR >=60 mL/min/1.73m 69 67 ASSESSMENT/PLAN: 1. 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 CPSS-Mol Low risk. Receiving azaciticine IV and tolerating well. Has not required transfusional support. - Overall tolerating Vidaza well. - Reviewed prelim CBC/CMP with pt. - Continue azacitidine, days 1 through 5 and 8 and 9 with cycles every 28 days. - Monitor CBC every cycle since his counts have been stable. - Monitor CMP/Iron/B12/MMA every 3 months. - Repeat CBC prior to treatment on Thursday. - Proceed as scheduled for Vidaza next week pending ANC. - Follow up as scheduled on Thursday otherwise. - Pt. aware to call office with any questions/concerns. The patient indicates understanding of these issues and agrees with the plan. All documentation from previous visit of 03/26/23-Dr. Galloway was copied and pasted, documentation hasbeen reviewed and edited as necessary for today's visit. David Cervantes APRN.MAURICIO documented in this encounterMer[facility]06-13-[facility] History of Present illness Narrative* Shirley Ho, RT(R) - 04/21/2023 8:00 AM EDT Radiology Service Progress Note PATIENT NAME: Srini Luis DATE OF SERVICE: April 21, 2023 TIME: 4:18 PM PATIENT IDENTITY VERIFICATION COMPLETED USING TWO (2) IDENTIFIERS: Name and Date of confirmedby patient verbally. FALL SCREENING: Has the patient had 2 falls in the last year or 1 fall with injury or currently using an Ambulatory Assistive Device (Walker, Cane, Wheelchair, Crutches, etc.)? No PATIENT GENDER DATA: Male PATIENT RELEVANT IMPLANT DATA REVIEWED: Yes RADIOLOGY DEPARTMENT: CT; Exam(s) Completed: Brain PERIPHERAL IV DATA: Not applicable SIGNED BY: RT Ramone(R) April 21, 2023 4:18 PM documented in this encounterMer[facility]06-12-2023 Instructions* Patient Instructions* Israel Pruitt, DO - 04/20/2023 2:47 PM EDT 1. Patient is asked to reduce Lasix to 20 mg twice daily for total of 40 mg a day 2. We will reduce metoprolol tartrate to taking 1/2 tablet at bedtime only and omit the tablet in the morning 3. We encouraged the patient to have good consistent fluid intake to avoid hypotension 4. Stat CT of the brain to rule out any acute findings and also acute change in ventricular size compared to prior studies from August 2022 that showed no evidence of abnormal ventricular enlargement but ventricular enlargement due to white matter disease appropriate for age 5. Patient will be seen back in the office in 1 month to reevaluate blood pressure and symptoms 6. I would advise the patient to abstain from driving for now until he is feeling better 7. I did appreciate a call from the patient within the next 2 weeks to give us a call as to how he is doing with the adjustment in medication 8. The stat CT of the brain I will be reviewing with the patient and his son who is here from [place] today. 9. It anytime that the patient is having any significant change in gait stability or worsening symptoms as discussed today in HPI need to know 10. Patient will be seen by ophthalmology for more detailed exam of the patient's visual field. documented in this encounterMer[facility]06-12-2023 History of Present illness Narrative* Israel Pruitt DO - 04/20/2023 2:09 PM EDT Patient presents with: 4 month office visit: Lab review HPI: Srini Luis is a 87 year old male who presents to the office today for acute OV with us today The patients been complaining since ThursdayApril 17 dizziness , transient double vision , weakness , feels gait is a little off Patient states he is not having any absence of vision either peripheral vision or central vision but states that vision is a bit fuzzy and also complains of some transient double vision when he is looking from side to side. He has not been driving a car due to his concern in regards to how he is doing visually and mentally. The patient is not driving The patient is being seen by opthalmology tomorrow to evaluate visual complaints The patients been feeling lazy , and walking not at the patients usual pace Walking with wheeled walker , no falls The patients having dizziness when seated and standing The patients not having vertigo sxs , feels though unsteady seated and standing and in motion Feels a little foggy cognitively although his son who is here with us today from [place] who interacts with him by phone often does not feel like he is witnessing any change in his father's mental status or speech. No FELDMAN, no chest pain No N/ V and or headache Notes loose stool x 1 yesterday , no cramping and or further loose stools Sleeping more Urine frequency is more than usual x 7 to 10 days ago , no dysuria Nocturia is twice nightly , nothing new Notes a new urine incontinence , seems there are new bladder control issues Patient's [employer] imaging was MRI of the brain August 23, 2022 most recent showing acute dorsal right greater than left pontine infarct. Patient's most recent CT of the brain August 22, 2022 showed ventricular enlargement concordant with the degree of parenchymal volume loss but no evidence of features of normal pressure hydrocephalus. Scattered patchy foci of low-attenuation are present within the white matter nonspecific findingslikely represents mild microvascular ischemia REVIEW OF SYSTEMS: CONSTITUTIONAL: No fevers, chills, nightsweats, unintended weight loss HEENT: Denies frequent or severe heaches, nasal congestion/sinus symptoms, problematic allergy problems. EYES: No diplopia or blurry vision. CARDIOVASCULAR: No chest pain, dyspnea, palpitations, orthopnea, PND, ankle edema. PULM: No dyspnea, unexplained cough. GI: No dysphagia/odynophagia, problematic reflux, constipation, diarrhea, changes in stool habits, hematochezia, melena. : No new urinary complaints, including dysuria, gross hematuria or pyuria. NEURO: No new balance problems, peripheral weakness/paresthesias or numbness of concern. MUSC-SKEL: No new joint pain, swelling, or erythema. PSY: No concerns regarding depression, anxiety or panic. 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; Confirmed Blk below His by His Bundle Electrogram CVA (cerebral vascular accident) ([facility]) 08/22/2022 Diverticulosis History of anemia Hx of CABG 07/22/2021 4 vessel CABG with ORNELAS-LAD, SVG-RI, SVG-OM, and SVG-RCA in [place] Hx of colonoscopy 09/27/2015 no reported polyps per patient recollection Hypertension Hypothyroidism USP current use of anticoagulant Xarelto 20 mg daily Lumbar stenosis MRI 2019 , severe LCS L2-3 Mixed hyperlipidemia Myasthenia gravis ([facility]) Last seen by neurology July 29, 2017. 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 2017 when he's been off medication Nocturnal hypoxemia On oxygen at night Osteoarthritis, generalized Pacemaker 09/17/2022 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 PAF (paroxysmal atrial fibrillation) (HCC) 2020 Post CABG atrial fibrillation PVC's (premature ventricular contractions) RBBB Status post ligation of left atrial appendage 07/2021 At time of CABG PAST SURGICAL HISTORY Procedure Laterality Date ANKLE RIGHT OP SURGERY Right 12/18/2020 Dr Elba Sherman [facility] ARTHROPLASTY TOTAL SHOULDER 11/09/2008 right ARTHROSCOPY OF JOINT UNLISTED Elbow right CABG (4) VEIN GRAFTS & ARTERIAL GRAFT(S) 07/21/2021 In [facility] COLONOSCOPY FLX DX W/COLLJ SPEC WHEN PFRMD 09/01/2005 Colonoscopy COLONOSCOPY FLX DX W/COLLJ SPEC WHEN PFRMD 09/27/2015 Colonoscopy PAST SURGICAL HISTORY OF 07/21/2021 Coronary Artery Bypass Graft x 4 REMOVAL OF TONSILS,<12 Y/O S $ DUAL CHMBR PACER [id number] Left 09/17/2022 Dual Pacer ([employer]) for High Grade AV Blk below His; 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 FAMILY HISTORY Problem Relation Age of Onset Heart Mother Heart Father CHF Colon Cancer No Family History Prostate Cancer No Family History Blood Clots No Family History NO PE OR DVT Social History Tobacco Use Smoking status: Former Types: Cigarettes Quit date: 08/11/1989 Years since quittin.7 Smokeless tobacco: Never Tobacco comments: quit 18-19 years ago Vaping Use Vaping Use: Never used Substance Use Topics Alcohol use: Yes Alcohol/week: 12.5 standard drinks Types: 2 Glasses of Wine (5oz), 2 Cans of Beer (12oz), 1 Mixed Drinks per week Comment: 1-2 beers per week Drug use: No ACTIVE PROBLEM LIST 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 Mixed Hyperlipidemia Hypothyroidism Generalized Osteoarthrosis, Unspecified Site Primary Localized Osteoarthrosis, Shoulder Region Osteoarthrosis, Unspecified Whether Generalized Or Localized, Other Specified Sites Spinal Stenosis of Lumbar Region With Neurogenic Claudication Insomnia Erectile Dysfunction Back Pain Essential Hypertension, Benign S/P Shoulder Replacement B12 Deficiency Vitamin D Deficiency Macrocytosis Venous Stasis of Both Lower Extremities Cad (Coronary Artery Disease) Diverticulosis History of Anemia Hx of Cabg Hx of Colonoscopy Hypertension Lumbar Stenosis Status Post Ligation of Left Atrial Appendage Osteoarthritis, Generalized Paf (Paroxysmal Atrial Fibrillation) ([facility]) Pvc's (Premature Ventricular Contractions) Benign Hypertension Rbbb Acute Stroke Due to Ischemia (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) Malnutrition of Moderate Degree (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) Nocturnal Hypoxemia Cva (Cerebral Vascular Accident) ([facility]) Chb (Complete Heart Block) (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) ALLERGIES Allergen Reactions Simvastatin Other: See Comments Elevated CK MEDICATIONS: furosemide (LASIX) 20 mg tablet Take by mouth. Reduce dose to 1 tablet twice daily as of April 20, 2023 metoprolol tartrate, short acting, (LOPRESSOR) 25 mg tablet Take 0.5 tablets by mouth daily at bedtime. New dose as of April 20 2023 levothyroxine (SYNTHROID) 112 mcg tablet Take 1 tablet by mouth once daily. nitroglycerin sublingual (NITROQUICK) 0.4 mg SL tablet nitroglycerin 0.4 mg sublingual tablet ondansetron (ZOFRAN) 8 mg tablet Take 1 tablet by mouth every 8 hours as needed. lidocaine-prilocaine (EMLA) 2.5-2.5 % cream Apply to port site about 45 mintues prior to treatment and cover rivaroxaban (XARELTO) 20 mg tablet Take 1 tablet by mouth daily with dinner. Resume Sep 20 2022 cyanocobalamin (VITAMIN B-12) 1,000 mcg tab Take 1,000 mcg by mouth once daily. atorvastatin (LIPITOR) 40 mg tablet Take 0.5 tablets by mouth once daily. New lower dose as of 2021 ferrous sulfate 325 mg (65 mg iron) tablet Take 325 mg by mouth three times daily with meals. polyethylene glycol 3350 (MIRALAX, GLYCOLAX) 17 gram packet Take 17 g by mouth once daily as neededfor constipation. Dissolve dose in 4 - 8 ounces of liquid and take as directed. aspirin, enteric coated (ASPIRIN, ENTERIC COATED) 81 mg EC tablet Take 81 mg by mouth once daily. cholecalciferol (VITAMIN D3) 1,000 unit tab tablet Take 1,000 Units by mouth once daily. MULTIVITAMIN TABLET Take 1 tablet by mouth once daily. EXAM:BP 102/60 (BP Site: Left Arm, BP Position: Sitting, BP Cuff Size: Large Adult) Pulse 61 Temp 36.1 C (97 F) (Temporal) Ht 170.2 cm (5' 7) Wt 82 kg (180 lb 12.8 oz) SpO2 97% BMI 28.32kg/m Last Wt 04/20/23 : 82 kg (180 lb 12.8 oz) 04/09/23 : 81.9 kg (180 lb 8 oz) 04/08/23 : 81 kg (178 lb 8 oz) 03/26/23 : 79.8 kg (176 lb) PHYSICAL EXAM: Weight stable Orthostatic vitals with the patient's supine blood pressure 96/54 Orthostatic vitals with the patient sitting 96/56. General Appearance: Well appearing, alert, in no acute distress, well-hydrated, well nourished.. Skin: Skin color, texture, turgor normal, no suspicious rashes or lesions. Lymph Nodes: No cervical lymphadenopathy, No supraclavicular lymphadenopathy, No axillary lymphadenopathy. and No inguinal lymphadenopathy. Head: Normocephalic, no masses, lesions, tenderness or abnormalities. Eyes: Anicteric sclera. Pupils are equally round and reactive to light. Extraocular movements are intact. . Nose/Sinuses: Nares normal, septum midline, mucosa normal, no drainage or sinus tenderness. Oropharynx: Lips, mucosa, and tongue normal, teeth and gums normal, oropharynx normal. Neck: Supple, no adenopathy; thyroid symmetric, normal size, no bruits. Lungs: Lungs clear to auscultation. No wheezing, rhonchi, rales. Heart: RRR without murmur, gallop, or rubs. No ectopy. Abdomen: Normal abdominal exam, Abdomen soft, non-tender. Bowel sounds normal. No masses, organomegaly. Extremities: No deformities, edema, skin discoloration, clubbing or cyanosis. Good capillary refill. . Musculoskeletal: No joint swelling, deformity, or tenderness. Back:no pain to palpation of vertebrae, good flexion and extension, good range of motion, no muscletenderness, reflexes are 2+ and symmetric, motor and sensory appear to be normal, negative SLR test, no evidence of scoliosis. Peripheral Pulses: Normal. Neurologic: Gait is somewhat abnormal with the patient requiring some standby assist to make weighttransfer. Reflexes normal and symmetric. Sensation grossly intact.. Patient has intact cerebellar signs Also the patient has two-point discrimination with both eyes without evidence of double vision or diplopia on exam today. No facial muscle weakness. No weakness about the upper and lower extremities to active and passive range of motion testing against resistance. Rectal: n/a Component Latest Ref Rng & Units 04/08/2023 WBC 3.70 - 11.00 k/uL 4.67 RBC 4.20 - 6.00 m/uL 3.02 (L) Hemoglobin 13.0 - 17.0 g/dL 10.4 (L) Hematocrit 39.0 - 51.0 % 32.3 (L) MCV 80.0 - 100.0 fL 107.0 (H) MCH 26.0 - 34.0 pg 34.4 (H) MCHC 30.5 - 36.0 g/dL 32.2 RDW-CV 11.5 - 15.0 % 21.1 (H) Platelet Count 150 - 400 k/uL 298 MPV 9.0 - 12.7 fL 11.3 Neut% % 72.7 Abs Neut (ANC) 1.45 - 7.50 k/uL 3.40 Lymph% % 17.6 Abs Lymph 1.00 - 4.00 k/uL 0.82 (L) Weld% % 5.8 Abs Weld <0.87 k/uL 0.27 Eosin% % 0.9 Abs Eosin <0.46 k/uL 0.04 Baso% % 2.6 Abs Baso <0.11 k/uL 0.12 (H) Immature Gran % % 0.4 IMMATURE GRANS (ABS) <0.10 k/uL <0.03 NRBC /100 WBC 0.6 Absolute nRBC <0.01 k/uL 0.03 (H) DTYPE Auto Protein, Total 6.3 - 8.0 g/dL 5.9 (L) Albumin 3.9 - 4.9 g/dL 4.0 Calcium 8.5 - 10.2 mg/dL 9.3 Bilirubin, Total 0.2 - 1.3 mg/dL 1.0 Alkaline Phosphatase 38 - 113 U/L 103 AST 14 - 40 U/L 24 ALT 10 - 54 U/L 26 Glucose 74 - 99 mg/dL 157 (H) BUN 9 - 24 mg/dL 25 (H) Creatinine 0.73 - 1.22 mg/dL 1.07 Sodium 136 - 144 mmol/L 138 Potassium 3.7 - 5.1 mmol/L 4.4 Chloride 97 - 105 mmol/L 101 CO2 22 - 30 mmol/L 30 Anion Gap 9 - 18 mmol/L 7 (L) eGFR >=60 mL/min/1.73m 67 Iron 41 - 186 ug/dL 34 (L) TIBC 232 - 386 ug/dL 218 (L) Transferrin Saturation 15.0 - 57.0 % 15.6 Hep B Surface Ab, Qual Positive Negative (A) Hep B Surf Ab Quant >=12.00 mIU/mL <8.00 (L) Vitamin B12 232 - 1,245 pg/mL 1,041 MMA 79 - 376 nmol/L 237 Ferritin 30.3 - 565.7 ng/mL 496.0 Hep C Antibody IA Negative Negative Hep B Surface Ag Negative Negative Hep B Core Ab, Total Negative Negative While ASSESSMENT/PLAN: 1. Unstable gait - ICD9: 781.2, ICD10: R26.81 (primary diagnosis) Multifactorial with the patient having hypotension which will make adjustments in both Lasix and metoprolol tartrate as well as check CT of the brain to rule out normal pressure hydrocephalus. Patient also have Ophthalmology visit tomorrow to evaluate the patient's site but at this point is site on exam seemsto be intact. No evidence of visual field defect or diplopia 2. Postural dizziness - ICD9: 780.4, ICD10: R42 See above and see instructions 3. Hypotension due to drugs - ICD9: 458.8, E947.9, ICD10: I95.2 We will be reducing the patient's Lasix and metoprolol tartrate please see instructions 4. Urinary incontinence, unspecified type - ICD9: 788.30, ICD10: R32 CT of the brain to rule out normal pressure hydrocephalus 5. Confusion and disorientation - ICD9: 780.97, ICD10: R41.0 Same as above #1 and #4 6. Diplopia - ICD9: 368.2, ICD10: H53.2 CT of the brain today stat 7. Hypothyroidism, unspecified type - ICD9: 244.9, ICD10: E03.9 - Instructed patient on importance of taking on an empty stomach either first thing in the morning or at bedtime. No change in current medication 8. Essential hypertension, benign - ICD9: 401.1, ICD10: I10 - Uncontrolled - Recommend home blood pressure monitoring, to bring results to next visit - Encouraged sodium restriction, DASH or Mediterranean diet - Recommend regular aerobic exercise - see adjustments 9. PAF (paroxysmal atrial fibrillation) (HCC) - ICD9: 427.31, ICD10: I48.0 Stable , pacer on board 10. MDS (myelodysplastic syndrome) (HCC) - ICD9: 238.75, ICD10: D46.9 Better ., HGB > 10 and no evidence of leukopenia. 11. Venous stasis of both lower extremities - ICD9: 459.81, ICD10: I87.8 +1 edema in the legs 12. 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HCC) - ICD9: 434.91, ICD10: I63.9 By Hx in Aug 2022, no obvious features of stroke today on exam I spent a total of 35 minutes on the date of the service which included preparing to see the patient, [id number] patient care, completing clinical documentation, obtaining and/or reviewing separately obtained history, performing a medically appropriate examination, counseling and educating the pat ient/family/caregiver, ordering medications, tests, or procedures, communicating with other HCPs (not separately reported), independently interpreting results (not separately reported), communicatingresults to the patient/family/caregiver, and care coordination (not separately reported). Israel Pruitt DO documented in this encounterMer[facility]06-08-[facility] History of Present illness Narrative* Milagro Camacho RN - 04/16/2023 10:29 AM EDT Study Number: [id number] Study Title: Collection of Blood & Bone Marrow from Normal Volunteers & Patients for Research Purposes Consent expiration date: 01/28/2024 Spoke with patient at the request of Baljinder Galloway D.O. Treatment plan, including all testing, potential risks/benefits, side effects and management, treatment alternatives, and follow-up explained. Roles of the clinical trial personnel to be involved and the financial responsibilities regarding procedures and medications were discussed. Discussed the importance of effective contraception during andfollowing completion of active therapy for NA. Initial questions were answered and a copy of the informed consent was given to patient with the instructions to read it and call with any additional questions. Contact information for the research nurse was given to the patient. The patient verbalizedappropriate understanding of all the aforementioned information presented. Time of Presentation: 10:15AM April 16, 2023 Milagro Camacho RN Research Nurse - [place] [phone] documented in this encounterMer[facility]06-06-2023 History of Present illness Narrative* Eveline Dean RN - 04/14/2023 3:35 PM EDT CDM Telephonic Outreach Provider Action/FYI No CDM concerns at this time. Denies any new or worsening symptoms. No questions/concerns/needs at this time. Contacted for: Routine Telephonic Outreach Contact made with patient: Yes Patient identified by name and date of . Discussed care with patient Are you experiencing any new or worsening symptoms you need to talk about today? No Disease Specific Do you check your blood pressure at home? No Do you have new or worsening shortness of breath with activity? No Do you have new or worsening trouble breathing while lying flat? No Do you have new or worsening swelling of legs, feet or ankles? No Do you check your daily weight at home? No Based on treating engineer helper, the following disposition is advised: No symptoms or symptoms present, not severe. Routed to: No Action Needed MARCELO Education Provided this Outreach: No Eveline Dean RN April 14, 2023 3:36 PM documented in this encounterMer[facility]06-06-2023 History of Present illness Narrative* Patricia Fairchild RN - 04/14/2023 10:18 AM EDT ++ documented in this encounterMercy Health [facility]06-02-2023 Miscellaneous Notes* Telephone Encounter - Stephany Abraham LPN - 04/10/2023 3:59 PM EDT After talking to patient, son and daughter in law he has decided to go with rate control at this time Per verbal order Iram said to increase his metoprolol to 25 mg BID and report his heart rate nextweek via remote.I spoke back to Narinder and he has the 25 mg tablets that he was cutting in half and will just take a whole pill BID. Note: he is now at [facility]. [phone]. * Telephone Encounter - Iram Johnson APRN.MAURICIO - 04/10/2023 3:14 PM EDT Find out the patient would like to go on antiarrhythmic medications or go with rate control and anticoagulation strategy. * Telephone Encounter - Stephany Abraham LPN - 04/10/2023 3:12 PM EDT Since January 14, 2023 his mean ventricular rate while in AFIB is 74 bpm. The max ventricular rate during AFIB is 128 bpm. * Telephone Encounter - Iram Johnson APRN.MAURICIO - 04/10/2023 10:20 AM EDT Let the patient know he is in atrial fibrillation. He is on anticoagulation. As long as his heart rate is controlled and he is not symptomatic would not necessarily need to do anything. If he is symptomatic, we can start antiarrhythmic medications. * Telephone Encounter - Stephany Abraham LPN - 04/10/2023 9:54 AM EDT Patient has a Biotronik pacer and is in AFIB. HE is on Metoprolol 12.5 mg BID. He has been in AFIB since about mid March. documented in this encounterMercy [facility]06-02-2023 Miscellaneous Notes* Telephone Encounter - Stephany Abraham LPN - 04/10/2023 3:58 PM EDT Talked with daughter and explained everything. I am calling the [facility] to give orders after speaking ot Iram. See other message from today as well. * Telephone Encounter - Jessica Nix - 04/10/2023 3:34 PM EDT Patients daughter called and said that he found his monitor on the floor and it is plugged in and should be working now. Please call if you have any questions or anything at all Patient stated it was reading okay documented in this encounterMercy Health [facility]05-31-2023 Miscellaneous Notes* Telephone Encounter - Ileana Sosa RN - 04/08/2023 10:11 AM EDT ONCOLOGY PATIENT EDUCATION NOTE TOPIC: Chemotherapy, Medications: vidaza Patient transferred care to our office. Patient has completed 4 cycles of vidaza. Patient was givena folder with Vidaza chemocare handout, when to call paper and magnet, thermometer, and other chemoresource information. Patient instructed to call our office with any questions/concerns. Ileana Sosa RN documented in this encounterMercy Health [facility]05-17-2023 Instructions* Patient Instructions* Israel Pruitt DO - 03/25/2023 12:36 PM EDT 1. The patient was reassured this is just simply benign ecchymosis or soft tissue bruising about the dorsal aspect of the right distal foot 2. Patient will be seen by podiatry tomorrow to address the patient's foot and ankle anatomy 3. Stat venous duplex ultrasound both lower extremities to rule out DVT 4. No change in current medications unless there is additional bruising and bleeding that may result in withdrawing aspirin at least temporarily 5. Patient will have close follow-up with hematology oncology as he has ongoing care with them at this time 6. Call with any increase in diffuse bruising or bleeding which I do not anticipate. #7 the vascular lab at [facility] is aware that I will be receiving a call regarding the patient's report and then the patient will be aware of his report or results today. In the event that there is any evidence of acute deep vein thrombosis will be coordinating care with the patient's hematology gas specialist. documented in this encounterMercy Health [facility]05-17-2023 History of Present illness Narrative* Israel Pruitt DO - 03/25/2023 12:10 PM EDT Patient presents with: ED Follow-up HPI: Srini Luis is a 87 year old male who presents to the office today for acute right dorsal foot concerns . The patient first noticed discoloration distal dorsal right foot 4 5 days ago Was seen in the ER Fri March 20 , and sxs began 3 to 4 days before No trauma to the right foot and ankle The patient has noticed more swelling in the right foot , ankle , and dorsal foot than in the past Swelling seems more intense No trip, no stubbed foot The patient feels that there is the same swelling on the right and left foot and calves. The patients tension is only noted on the right dorsal foot . Patient was advised by his insurance company to seek assessment in the ER March 20 X rays right foot and ankle , no acute disease , only DJD . Hardware in good placement The patients pulses were noted + on doppler on the evaluation in the ER March 20 though faint REVIEW OF SYSTEMS: CONSTITUTIONAL: No fevers, chills, nightsweats, unintended weight loss HEENT: Denies frequent or severe heaches, nasal congestion/sinus symptoms, problematic allergy problems. EYES: No diplopia or blurry vision. CARDIOVASCULAR: No chest pain, dyspnea, palpitations, orthopnea, PND, ankle edema. PULM: No dyspnea, unexplained cough. GI: No dysphagia/odynophagia, problematic reflux, constipation, diarrhea, changes in stool habits, hematochezia, melena. : No new urinary complaints, including dysuria, gross hematuria or pyuria. NEURO: No new balance problems, peripheral weakness/paresthesias or numbness of concern. MUSC-SKEL: see HPI above for details PSY: No concerns regarding depression, anxiety or panic. 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; Confirmed Blk below His by His Bundle Electrogram CVA (cerebral vascular accident) ([facility]) 08/22/2022 Diverticulosis History of anemia Hx of CABG 07/22/2021 4 vessel CABG with ORNELAS-LAD, SVG-RI, SVG-OM, and SVG-RCA in [place] Hx of colonoscopy 09/27/2015 no reported polyps per patient recollection Hypertension Hypothyroidism USP current use of anticoagulant Xarelto 20 mg daily Lumbar stenosis MRI 2018 , severe LCS L2-3 Mixed hyperlipidemia Myasthenia gravis ([facility]) Last seen by neurology July 29, 2017. 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 2017 when he's been off medication Nocturnal hypoxemia On oxygen at night Osteoarthritis, generalized Pacemaker 09/17/2022 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 PAF (paroxysmal atrial fibrillation) ([facility]) 2020 Post CABG atrial fibrillation PVC's (premature ventricular contractions) RBBB Status post ligation of left atrial appendage 07/2021 At time of CABG PAST SURGICAL HISTORY Procedure Laterality Date ANKLE RIGHT OP SURGERY Right 12/18/2020 Dr Arreola [facility] ARTHROPLASTY TOTAL SHOULDER 11/09/2008 right ARTHROSCOPY OF JOINT UNLISTED Elbow right CABG (4) VEIN GRAFTS & ARTERIAL GRAFT(S) 07/21/2021 In [facility] COLONOSCOPY FLX DX W/COLLJ SPEC WHEN PFRMD 09/01/2005 Colonoscopy COLONOSCOPY FLX DX W/COLLJ SPEC WHEN PFRMD 09/27/2015 Colonoscopy PAST SURGICAL HISTORY OF 07/21/2021 Coronary Artery Bypass Graft x 4 REMOVAL OF TONSILS,<12 Y/O S $ DUAL CHMBR PACER [id number] Left 09/17/2022 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 FAMILY HISTORY Problem Relation Age of Onset Heart Mother Heart Father CHF Colon Cancer No Family History Prostate Cancer No Family History Blood Clots No Family History NO PE OR DVT Social History Tobacco Use Smoking status: Former Types: Cigarettes Quit date: 08/11/1989 Years since quittin.6 Smokeless tobacco: Never Tobacco comments: quit 18-19 years ago Vaping Use Vaping Use: Never used Substance Use Topics Alcohol use: Yes Alcohol/week: 12.5 standard drinks Types: 2 Glasses of Wine (5oz), 2 Cans of Beer (12oz), 1 Mixed Drinks per week Comment: 1-2 beers per week Drug use: No ACTIVE PROBLEM LIST 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 Mixed Hyperlipidemia Hypothyroidism Generalized Osteoarthrosis, Unspecified Site Primary Localized Osteoarthrosis, Shoulder Region Osteoarthrosis, Unspecified Whether Generalized Or Localized, Other Specified Sites Spinal Stenosis of Lumbar Region With Neurogenic Claudication Insomnia Erectile Dysfunction Back Pain Essential Hypertension, Benign S/P Shoulder Replacement B12 Deficiency Vitamin D Deficiency Macrocytosis Venous Stasis of Both Lower Extremities Cad (Coronary Artery Disease) Diverticulosis History of Anemia Hx of Cabg Hx of Colonoscopy Hypertension Lumbar Stenosis Status Post Ligation of Left Atrial Appendage Osteoarthritis, Generalized Paf (Paroxysmal Atrial Fibrillation) ([facility]) Pvc's (Premature Ventricular Contractions) Benign Hypertension Rbbb Acute Stroke Due to Ischemia (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) Malnutrition of Moderate Degree (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) Nocturnal Hypoxemia Myasthenia Gravis ([facility]) Cva (Cerebral Vascular Accident) ([facility]) Chb (Complete Heart Block) ([facility]) Correction Current Use of Anticoagulant Mds (Myelodysplastic Syndrome) ([facility]) ALLERGIES Allergen Reactions Simvastatin Other: See Comments Elevated CK MEDICATIONS: furosemide (LASIX) 20 mg tablet Take 1 tablet by mouth as directed. Take two tablets daily in am and one tablet nightly as of Mar 12 2023 , total 60 mg daily , new dose nitroglycerin sublingual (NITROQUICK) 0.4 mg SL tablet nitroglycerin 0.4 mg sublingual tablet ondansetron (ZOFRAN) 8 mg tablet Take 1 tablet by mouth every 8 hours as needed. lidocaine-prilocaine (EMLA) 2.5-2.5 % cream Apply to port site about 45 mintues prior to treatment and cover prochlorperazine (COMPAZINE) 10 mg tablet Take 1 tablet by mouth every 6 hours as needed. rivaroxaban (XARELTO) 20 mg tablet Take 1 tablet by mouth daily with dinner. Resume Sep 20 2022 metoprolol tartrate, short acting, (LOPRESSOR) 25 mg tablet Take 1/2 tablet by mouth every 12 hours. New lower dose since in the hospital setting Sep 16 - Sep 18 cyanocobalamin (VITAMIN B-12) 1,000 mcg tab Take 1,000 mcg by mouth once daily. atorvastatin (LIPITOR) 40 mg tablet Take 0.5 tablets by mouth once daily. New lower dose as of 2021 levothyroxine (SYNTHROID) 112 mcg tablet Take 1 tablet by mouth once daily. ferrous sulfate 325 mg (65 mg iron) tablet Take 325 mg by mouth three times daily with meals. polyethylene glycol 3350 (MIRALAX, GLYCOLAX) 17 gram packet Take 17 g by mouth once daily as neededfor constipation. Dissolve dose in 4 - 8 ounces of liquid and take as directed. 1/2 capful every other day aspirin, enteric coated (ASPIRIN, ENTERIC COATED) 81 mg EC tablet Take 81 mg by mouth once daily. cholecalciferol (VITAMIN D3) 1,000 unit tab tablet Take 1,000 Units by mouth once daily. MULTIVITAMIN TABLET Take 1 tablet by mouth once daily. EXAM:BP 112/64 Pulse 76 Resp 16 Wt 74.8 kg (165 lb) BMI 25.84 kg/m Last Wt 03/25/23 : 74.8 kg (165 lb) 03/20/23 : 76.2 kg (168 lb) 03/16/23 : 81 kg (178 lb 9.6 oz) 03/12/23 : 78.9 kg (174 lb) PHYSICAL EXAM: Weight loss x 3 pounds since last seen on increase in Lasix to three tablets /24 hours General Appearance: Well appearing, alert, in no acute distress, well-hydrated, well nourished.. Skin: see HPI above for details regarding the soft tissues Lymph Nodes: No cervical lymphadenopathy, No supraclavicular lymphadenopathy, No axillary lymphadenopathy. and No inguinal lymphadenopathy. Head: Normocephalic, no masses, lesions, tenderness or abnormalities. Eyes: Anicteric sclera. Pupils are equally round and reactive to light. Extraocular movements are intact. . Nose/Sinuses: Nares normal, septum midline, mucosa normal, no drainage or sinus tenderness. Oropharynx: Lips, mucosa, and tongue normal, teeth and gums normal, oropharynx normal. Neck: Supple, no adenopathy; thyroid symmetric, normal size, no bruits. Lungs: Lungs clear to auscultation. No wheezing, rhonchi, rales. Heart: RRR without murmur, gallop, or rubs. No ectopy. Abdomen: Normal abdominal exam, Abdomen soft, non-tender. Bowel sounds normal. No masses, organomegaly. Extremities: The patient has some simple ecchymosis or soft tissue bruising at the distal aspect of the dorsal aspect of the right foot that extends into the toes 2 3 and 4. Patient also has some minor bruising about the right lateral MTP. This is ecchymosis from traumatic injury to the soft tissues. There is no evidence of distal ischemia about the toes. The patient has good capillary refill. Patient has diminished but palpable dorsalis pedis pulses. No evidence of cyanosis to suggest acute venous thrombus. The patient has equal and bilateral 2+ lower extremity edema with minimal pitting. Overall swellinghas dissipated with the increase in Lasix of late The patient has his right third toe extends over his right second toe with some early callus formation about that right third toe on the dorsal aspect. The patient has calf pain tenderness with dorsiflexion about both foot and ankle suspicious for DVT. Patient's most recent assessment for DVT July 07, 2022 negative for acute DVT. Musculoskeletal: Back:no pain to palpation of vertebrae, good flexion and extension, good range of motion, no muscletenderness, reflexes are 2+ and symmetric, motor and sensory appear to be normal, negative SLR test, no evidence of scoliosis. Peripheral Pulses: present and diminished Neurologic: Gait normal. Reflexes normal and symmetric. Sensation grossly intact.. Rectal: n/a Component Latest Ref Rng & Units 03/20/2023 WBC 3.70 - 11.00 k/uL 5.16 RBC 4.20 - 6.00 m/uL 2.80 (L) Hemoglobin 13.0 - 17.0 g/dL 9.9 (L) Hematocrit 39.0 - 51.0 % 30.8 (L) MCV 80.0 - 100.0 fL 110.0 (H) MCH 26.0 - 34.0 pg 35.4 (H) MCHC 30.5 - 36.0 g/dL 32.1 RDW-CV 11.5 - 15.0 % 21.1 (H) Platelet Count 150 - 400 k/uL 382 MPV 9.0 - 12.7 fL 11.2 Neut% % 68.8 Abs Neut (ANC) 1.45 - 7.50 k/uL 3.55 Lymph% % 20.3 Abs Lymph 1.00 - 4.00 k/uL 1.05 Weld% % 7.4 Abs Weld <0.87 k/uL 0.38 Eosin% % 2.1 Abs Eosin <0.46 k/uL 0.11 Baso% % 0.6 Abs Baso <0.11 k/uL 0.03 Immature Gran % % 0.8 IMMATURE GRANS (ABS) <0.10 k/uL 0.04 DTYPE Auto Glucose 74 - 99 mg/dL 115 (H) BUN 7 - 25 mg/dL 32 (H) Creatinine 0.60 - 1.30 mg/dL 1.05 Sodium 136 - 144 mmol/L 141 Potassium 3.6 - 5.1 mmol/L 3.9 Chloride 101 - 111 mmol/L 102 CO2 21 - 31 mmol/L 35 (H) Anion Gap 9 - 18 mmol/L 4 (L) Calcium 8.6 - 10.3 mg/dL 8.8 eGFR >=60 mL/min/1.73m 69 APTT 23.0 - 32.4 sec 29.2 ASSESSMENT/PLAN: 1. Traumatic ecchymosis of foot, right, initial encounter - ICD9: 924.20, ICD10: S90.31XA (primary diagnosis) Assured benign feature ?? ASA a contribution, right 3rd toe a contribution, recent hemetology care a possible contribution( unlikely ) 2. Bilateral calf pain - ICD9: 729.5, ICD10: M79.661, M79.662 See order for STAT venous duplex ultrasound R/O DVT 3. Venous stasis of both lower extremities - ICD9: 459.81, ICD10: I87.8 See above , less swelling on more Alasix since last OV 4. Diminished pulses in lower extremity - ICD9: 785.9, ICD10: R09.89 Seems no acute arterial insufficiency this is chronic not acute. Good capillary refill with pressure applied to distal toes. I spent a total of 25 minutes on the date of the service which included preparing to see the patient, [id number] patient care, completing clinical documentation, obtaining and/or reviewing separately obtained history, performing a medically appropriate examination, counseling and educating the pat ient/family/caregiver, ordering medications, tests, or procedures, communicating with other HCPs (not separately reported), independently interpreting results (not separately reported), communicatingresults to the patient/family/caregiver, and care coordination (not separately reported). Israel Pruitt DO documented in this encounterMercy Health [facility]05-15-2023 History of Present illness Narrative* Lupis Servin MA - 03/23/2023 12:50 PM EDT POPULATION HEALTH NAVIGATION OUTREACH Action/I March 23, 2023 12:51 PM Spoke with patient. We have scheduled him for his ED follow up with Israel Pruitt DO on March 25, 2023, thank you. Patient Identified by Name and : YES, via phone Outreach Outcome/Action Spoke to patient / parent / legal guardian: Patient scheduled Did you use a PCP flex slot to schedule this appointment? No Reason for Outreach Community Monitoring Pool Payer: Payor: [facility] MEDICARE / Plan: [facility] MEDICARE HMO / Product Type: HMO / Care Gap Reviewed:: Follow-up appointment Reminder: Reminder note to check Health Maintenance for items below Health Maintenance items due: There are no preventive care reminders to display for this patient. Navigation Signature: Lupis Servin MA March 23, 2023 12:51 PM * Eveline Dean RN - 03/23/2023 12:11 PM EDT ED Follow-Up Note Provider Action / FYI: Post ED follow up PSS please make ED follow up appointment for foot discolored/swelling Patient seen in ED: In Network ED Contact made with Patient: Yes The patient was identified by Name and Date of . Discussed Care with: patient Patient was seen in the Emergency Department (ED) Location: [facility] ED Date: 03/20/23 Reason for ED Visit: foot discolored, pain, swollen ED Intervention: not broken Based on treating engineer helper, the following disposition is advised: No symptoms or symptoms present, not severe. 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; Confirmed Blk below His by His Bundle Electrogram Symptomatic bradycardia 09/15/2022 09/18/20 22 CHF (congestive heart failur e), NYHA class I, acute on chronic, diastolic 07/04/2022 08/26/2022 Xerosis cutis 12/14/2012 01/02/2015 Pruritus 12/14/2012 01/02/2015 Actinic skin damage 12/14/2012 01/02/2015 Solar lentigo 12/14/2012 01/02/2015 Myasthenia gravis 04/19/2012 09/15/2022 Viral warts, unspecified 09/29/2010 015 Irritated//Inflamed Seborrheic Keratosis 010 01/02/2015 Follow-up examination, following unspecified dheeraj diane 06/11/2009 08/14/2009 ACTINIC DAMAGE///SOLAR SKIN DAMAGE NOS 200 8 01/02/2015 Dermatitis due to cosmetics 04/07/200812/11 ACTINIC DAMAGE///CHR SOLAR SKIN DAMAGE NOS 04/0701/02/2015 Other seborrheic keratosis 04/07/200801/02 SOLAR LENTIGINES///DYSCHROMIA OTHER 04/07/2008 01/02/2015 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 01/02/2015 Special screening for malignant neoplasms, colon 08/11/2005 01/02/2015 Follow-up examination following surgery 10/31/2001/02/2015 USP current use of ant icoagulants with INR goal of 2.0-3.0 09/15/2022 Nocturnal hypoxemia 08/29/2022 Overview: On oxygen at night documented as of this encounter (statuses as of 03/23/2023) [facility] History of Present illness Narrative* Jennifer Wilson, MANAGER DAIRY.OFFICE [employer]ACH[employer] SALES REPRESENTATIVE - 03/20/2023 1:58 PM EDT Virtualist Distance Health Note (CDM/TCM//CC HC/H@[facility] escalation) Srini Elginmarek has consented to this telephone encounter. Persons Present: patient Triage source: Chronic Disease Management Contacted by phone, MySmartPrice, Google Duo, Zoom, Doximity, other: phone History of present illness: Hx of HTN, AFib with Xarelto Right foot-middle toe is black and cold, the toe next to it is starting become discolored as we. Denies injury to the toes. Denies fever, chest pain, SOB Past medical history, past surgical history, family history and social history reviewed and updatedas indicated in EMR. REVIEW OF SYSTEMS: Review of Systems VITAL SIGNS: (if available) There were no vitals taken for this visit. Physical Exam (if video visit was performed) Physical Exam Assessment/Plan: ASSESSMENT/PLAN: 1. Blue toes - ICD9: 782.5, ICD10: R23.0 -Go to ER Disposition: Patient instructed to go to the ED A total of 15 minutes was spent providing medical care using telemedicine. Signed in as Primary Virtualist, Secondary Virtualist, or [facility] Telehealth provider: Primary SIGNATURE: Jennifer Wilson APRN.CNP PATIENT NAME: Srini Luis DATE: March 20, 2023 documented in this encounterMercy Health [facility]05-12-2023 History of Present illness Narrative* Eveline Dean RN - 03/20/2023 12:12 PM EDT [facility] Telephonic Outreach Provider Vinnie/GILBERTO Reports his two toes are almost black in color. This has been for the past two days. He has neverhad this before. Painful when he flexes his toes. Agrees to telephonic virtual visit. He is in the lunch room now and needs to get back to his room for the phone call. Will send page in a few min. Contacted for: Routine Telephonic Outreach Contact made with patient: Yes Patient identified by name and date of . Discussed care with patient Are you experiencing any new or worsening symptoms you need to talk about today? Yes Based on treating engineer helper, the following disposition is advised: Sent to virtualist. Eveline Dean RN March 20, 2023 12:21 PM * Eveline Dean RN - 03/19/2023 2:42 PM EDT [facility] Telephonic Outreach Provider Zena Contacted for: Routine Telephonic Outreach Contact made with patient: No, left message. 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; Confirmed Blk below His by His Bundle Electrogram Symptomatic bradycardia 09/15/2022 09/18/20 CHF (congestive heart failur e), NYHA class I, acute on chronic, diastolic 07/04/2022 08/26/2022 Xerosis cutis 12/14/2012 01/02/2015 Pruritus 12/14/2012 01/02/2015 Actinic skin damage 12/14/2012 01/02/2015 Solar lentigo 12/14/2012 01/02/2015 Myasthenia gravis 04/19/2012 09/15/2022 Viral warts, unspecified 09/29/2010 015 Irritated//Inflamed Seborrheic Keratosis 010 01/02/2015 Follow-up examination, following unspecified dheeraj diane 06/11/2009 08/14/2009 ACTINIC DAMAGE///SOLAR SKIN DAMAGE NOS 8 01/02/2015 Dermatitis due to cosmetics 04/07/200812/11 ACTINIC DAMAGE///CHR SOLAR SKIN DAMAGE NOS 04/0701/02/2015 Other seborrheic keratosis 04/07/200801/02 SOLAR LENTIGINES///DYSCHROMIA OTHER 04/07/2008 01/02/2015 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 01/02/2015 Special screening for malignant neoplasms, colon 08/11/2005 01/02/2015 Follow-up examination following surgery 10/31/20 03 01/02/2015 USP current use of ant icoagulants with INR goal of 2.0-3.0 09/15/2022 Nocturnal hypoxemia 08/29/2022 Overview: On oxygen at night documented as of this encounter (statuses as of 03/20/2023) [facility] Miscellaneous Notes* Telephone Encounter - Lena Cruz RN - 03/19/2023 8:39 AM EDT Faxed requested records. Lena Cruz RN * Telephone Encounter - Israel Pruitt DO - 03/18/2023 4:30 PM EDT Please provide the assisted living facility where [place] the information that is requested further records. I just recently had a comprehensive visit with the patient so that should be all up-to-date. Thanks , Israel Pruitt DO * Telephone Encounter - Marcie Key LPN - 03/18/2023 4:14 PM EDT Katelynn from [facility] states pt is wanting to move into their assisted living. 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; Confirmed Blk below His by His Bundle Electrogram Symptomatic bradycardia 09/15/2022 09/18/20 CHF (congestive heart failur e), NYHA class I, acute on chronic, diastolic 07/04/2022 08/26/2022 Xerosis cutis 12/14/2012 01/02/2015 Pruritus 12/14/2012 01/02/2015 Actinic skin damage 12/14/2012 01/02/2015 Solar lentigo 12/14/2012 01/02/2015 Myasthenia gravis 04/19/2012 09/15/2022 Viral warts, unspecified 09/29/2010 015 Irritated//Inflamed Seborrheic Keratosis 010 01/02/2015 Follow-up examination, following unspecified dheeraj diane 06/11/2009 08/14/2009 ACTINIC DAMAGE///SOLAR SKIN DAMAGE NOS 8 01/02/2015 Dermatitis due to cosmetics 04/07/200812/11 ACTINIC DAMAGE///CHR SOLAR SKIN DAMAGE NOS 04/0701/02/2015 Other seborrheic keratosis 04/07/200801/02 SOLAR LENTIGINES///DYSCHROMIA OTHER 04/07/2008 01/02/2015 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 01/02/2015 Special screening for malignant neoplasms, colon 08/11/2005 01/02/2015 Follow-up examination following surgery 10/31/2001/02/2015 USP current use of ant icoagulants with INR goal of 2.0-3.0 09/15/2022 Nocturnal hypoxemia 08/29/2022 Overview: On oxygen at night documented as of this encounter (statuses as of 03/19/2023) [facility]05-10[facility] Miscellaneous Notes* Telephone Encounter - Junie Torres - 03/18/2023 8:51 AM EDT I called and spoke to Narinder and scheduled him to see for a new patient consult on 03/26/23 @ 3:00 pm, he confirmed this date, time and location. Junie Torres * Telephone Encounter - Baljinder Galloway DO - 03/17/2023 2:47 PM EDT Next new patient appointment with me that is good for him. Baljinder Galloway DO * Telephone Encounter - Cami Plasencia - 03/17/2023 9:47 AM EDT Per nurse, will wait for provider review before scheduling * Telephone Encounter - Liza Shipman LPN - 03/13/2023 4:38 PM EDT Referral received from Dr. Pruitt (PCP). 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 Patient is moving from [facility] to [place] and would like to transfer care. Patient will continue current care until established here. 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; Confirmed Blk below His by His Bundle Electrogram Symptomatic bradycardia 09/15/2022 09/18/20 22 CHF (congestive heart failur e), NYHA class I, acute on chronic, diastolic 07/04/2022 08/26/2022 Xerosis cutis 12/14/2012 01/02/2015 Pruritus 12/14/2012 01/02/2015 Actinic skin damage 12/14/2012 01/02/2015 Solar lentigo 12/14/2012 01/02/2015 Myasthenia gravis 04/19/2012 09/15/2022 Viral warts, unspecified 09/29/2010 015 Irritated//Inflamed Seborrheic Keratosis 010 01/02/2015 Follow-up examination, following unspecified dheeraj diane 06/11/2009 08/14/2009 ACTINIC DAMAGE///SOLAR SKIN DAMAGE NOS 8 01/02/2015 Dermatitis due to cosmetics 04/07/200812/11 ACTINIC DAMAGE///CHR SOLAR SKIN DAMAGE NOS 04/0701/02/2015 Other seborrheic keratosis 04/07/200801/02 SOLAR LENTIGINES///DYSCHROMIA OTHER 04/07/2008 01/02/2015 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 01/02/2015 Special screening for malignant neoplasms, colon 08/11/2005 01/02/2015 Follow-up examination following surgery 10/31/20 03 01/02/2015 USP current use of ant icoagulants with INR goal of 2.0-3.0 09/15/2022 Nocturnal hypoxemia 08/29/2022 Overview: On oxygen at night documented as of this encounter (statuses as of 03/18/2023) [facility] History of Past illness Narrative* Problem Noted Date Resolved Date USP current use of ant icoagulants with INR goal of 2.0-3.0 01/05/2023 01/05/2023 CHB (complete heart block) 09/17/202209/18 Overview: 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; Confirmed Blk below His by His Bundle Electrogram Symptomatic bradycardia 09/15/2022 09/18/20 CHF (congestive heart failur e), NYHA class I, acute on chronic, diastolic 07/04/2022 08/26/2022 Xerosis cutis 12/14/2012 01/02/2015 Pruritus 12/14/2012 01/02/2015 Actinic skin damage 12/14/2012 01/02/2015 Solar lentigo 12/14/2012 01/02/2015 Myasthenia gravis 04/19/2012 09/15/2022 Viral warts, unspecified 09/29/2010 015 Irritated//Inflamed Seborrheic Keratosis 010 01/02/2015 Follow-up examination, following unspecified dheeraj diane 06/11/2009 08/14/2009 ACTINIC DAMAGE///SOLAR SKIN DAMAGE NOS 8 01/02/2015 Dermatitis due to cosmetics 04/07/200812/11 ACTINIC DAMAGE///CHR SOLAR SKIN DAMAGE NOS 04/0701/02/2015 Other seborrheic keratosis 04/07/200801/02 SOLAR LENTIGINES///DYSCHROMIA OTHER 04/07/2008 01/02/2015 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 01/02/2015 Special screening for malignant neoplasms, colon 08/11/2005 01/02/2015 Follow-up examination following surgery 10/31/20 03 01/02/2015 USP current use of ant icoagulants with INR goal of 2.0-3.0 09/15/2022 Nocturnal hypoxemia 08/29/2022 Overview: On oxygen at night documented as of this encounter (statuses as of 03/17/2023) [facility] History of Past illness Narrative* Problem Noted Date Resolved Date 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 of ant icoagulants with INR goal of 2.0-3.0 01/05/2023 01/05/2023 CHB (complete heart block) 09/17/202209/18 Overview: 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; Confirmed Blk below His by His Bundle Electrogram Symptomatic bradycardia 09/15/2022 09/18/20 CHF (congestive heart failur e), NYHA class I, acute on chronic, diastolic 07/04/2022 08/26/2022 Xerosis cutis 12/14/2012 01/02/2015 Pruritus 12/14/2012 01/02/2015 Actinic skin damage 12/14/2012 01/02/2015 Solar lentigo 12/14/2012 01/02/2015 Myasthenia gravis 04/19/2012 09/15/2022 Viral warts, unspecified 09/29/2010 015 Irritated//Inflamed Seborrheic Keratosis 010 01/02/2015 Follow-up examination, following unspecified dheeraj diane 06/11/2009 08/14/2009 ACTINIC DAMAGE///SOLAR SKIN DAMAGE NOS 8 01/02/2015 Dermatitis due to cosmetics 04/07/200812/11 ACTINIC DAMAGE///CHR SOLAR SKIN DAMAGE NOS 04/0701/02/2015 Other seborrheic keratosis 04/07/200801/02 SOLAR LENTIGINES///DYSCHROMIA OTHER 04/07/2008 01/02/2015 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 01/02/2015 Special screening for malignant neoplasms, colon 08/11/2005 01/02/2015 Follow-up examination following surgery 10/31/20 03 01/02/2015 USP current use of ant icoagulants with INR goal of 2.0-3.0 09/15/2022 Nocturnal hypoxemia 08/29/2022 Overview: On oxygen at night documented as of this encounter (statuses as of 03/16/2023) [facility] History of Past illness Narrative* Problem Noted Date Resolved Date 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 of ant icoagulants with INR goal of 2.0-3.0 01/05/2023 01/05/2023 CHB (complete heart block) 09/17/202209/18 Overview: 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; Confirmed Blk below His by His Bundle Electrogram Symptomatic bradycardia 09/15/2022 09/18/20 CHF (congestive heart failur e), NYHA class I, acute on chronic, diastolic 07/04/2022 08/26/2022 Xerosis cutis 12/14/2012 01/02/2015 Pruritus 12/14/2012 01/02/2015 Actinic skin damage 12/14/2012 01/02/2015 Solar lentigo 12/14/2012 01/02/2015 Myasthenia gravis 04/19/2012 09/15/2022 Viral warts, unspecified 09/29/2010 015 Irritated//Inflamed Seborrheic Keratosis 010 01/02/2015 Follow-up examination, following unspecified dheeraj diane 06/11/2009 08/14/2009 ACTINIC DAMAGE///SOLAR SKIN DAMAGE NOS 8 01/02/2015 Dermatitis due to cosmetics 04/07/200812/11 ACTINIC DAMAGE///CHR SOLAR SKIN DAMAGE NOS 04/0701/02/2015 Other seborrheic keratosis 04/07/200801/02 SOLAR LENTIGINES///DYSCHROMIA OTHER 04/07/2008 01/02/2015 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 01/02/2015 Special screening for malignant neoplasms, colon 08/11/2005 01/02/2015 Follow-up examination following surgery 10/31/20 03 01/02/2015 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 of ant icoagulants with INR goal of 2.0-3.0 09/15/2022 Nocturnal hypoxemia 08/29/2022 Overview: On oxygen at night documented as of this encounter (statuses as of 03/13/2023) [facility]-04[facility] Instructions* Patient Instructions* Israel Pruitt, DO - 03/12/2023 3:17 PM EDT 1. We will increase Lasix to 2 tablets in the morning 1 tablet in the evening for a total of 60 mg daily 2. We will have the patient back in the office in 4 months with labs prior to next visit 3. Patient will have labs drawn just looking at renal status with BMP and BNP T also fluid balance with the increase in Lasix in approximately 4 weeks 4. We will have the patient transition from hematology oncology at [facility] in [place] to in [place] where the patient is moving to assisted living 5. For now the patient will continue to see us on a regular basis for primary care 6. Patient will continue to monitor his weight on a daily basis calling if he gains 2 or more pounds of weight per day or 5 or more pounds of weight per week 7. Low-sodium diet trying to be consistent about a 2 g low-sodium diet of 2000 mg/day. 8. No other changes in medication other than the Lasix above 9. Please call if there is any difficulties with respiratory difficulties including any difficulty with shortness of breath laying flat or difficulty with shortness of breath doing daily activities that seems to be new or changed 10. Continue with compression stockings about the lower extremities 11. Continue with current work with hematology oncology here locally until he can transition to [place] where he will be residing #[phone] please call if there is any difficulty with bowel function as the patient is doing well with twice daily MiraLAX and he will continue that going forward [facility] History of Present illness Narrative* Israel Pruitt DO - 03/12/2023 2:39 PM EDT Patient presents with: Follow Up HPI: rSini Luis is a 87 year old male who presents to the office today for routine OV with us today The patients feeling well Less lack of energy and or lack of endurance , seems overall better with recent chemotherapy for CMML . The patient is currently receiving chemotherapy , seems to tolerate fairly well Walking with a cane and or a walker Had fall last week , had taken Niquel OTC for sleep , got dizzy , seems no injury , no head strike , no LOC , no near syncope as there reason for the fall Breathing is fine No chest pains Low back pain at baseline , nothing seems new or acute Mild left sided radiculopathy Left arm numbness persistent since stroke in 2021 , though no weakness to hand peoplesoft developer , though dexterity is compromised with using cup / etc Chemo has caused more constipation , and seems to have resolved on Miralax twice daily The patient has had some bad nights with awakening from sleep and can not back to sleep at times. This happened within the last few days and it made a tough for the patient to be energetic the next day when he had to awaken at 3 AM without able to get back to sleep The patient states that this is since chemo this week , seems new . The patient feels that the issues with sleep are new and random , would like to not take new Rx while on chemotherapy (she would like not to consider medication at this time and let us know if he hasconcerns to continue and require a discussion about medication) Mood is doing fine , things are up and down with the patients fiance , and transitioning to [facility] is comforting. 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 EYES: No diplopia or blurry vision. CARDIOVASCULAR: No chest pain, dyspnea, palpitations, orthopnea, PND, ankle edema. Stable , no sxs PULM: No dyspnea, unexplained cough. Stable , no sxs GI: No dysphagia/odynophagia, problematic reflux, constipation, diarrhea, changes in stool habits, hematochezia, melena. : No new urinary complaints, including dysuria, gross hematuria or pyuria. NEURO: see HPI above MUSC-SKEL: see HPI above PSY: No concerns regarding depression, anxiety or panic. 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; Confirmed Blk below His by His Bundle Electrogram CVA (cerebral vascular accident) ([facility]) 08/22/2022 Diverticulosis History of anemia Hx of CABG 07/22/2021 4 vessel CABG with ORNELAS-LAD, SVG-RI, SVG-OM, and SVG-RCA in [place] Hx of colonoscopy 09/27/2015 no reported polyps per patient recollection Hypertension Hypothyroidism 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 2017 when he's been off medication Nocturnal hypoxemia On oxygen at night Osteoarthritis, generalized Pacemaker 09/17/2022 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 PAF (paroxysmal atrial fibrillation) ([facility]) 2020 Post CABG atrial fibrillation PVC's (premature ventricular contractions) RBBB Status post ligation of left atrial appendage 07/2021 At time of CABG PAST SURGICAL HISTORY Procedure Laterality Date ANKLE RIGHT OP SURGERY Right 12/18/2020 Dr Arreola [facility] ARTHROPLASTY TOTAL SHOULDER 11/09/2008 right ARTHROSCOPY OF JOINT UNLISTED Elbow right CABG (4) VEIN GRAFTS & ARTERIAL GRAFT(S) 07/21/2021 In [facility] COLONOSCOPY FLX DX W/COLLJ SPEC WHEN PFRMD 09/01/2005 Colonoscopy COLONOSCOPY FLX DX W/COLLJ SPEC WHEN PFRMD 09/27/2015 Colonoscopy PAST SURGICAL HISTORY OF 07/21/2021 Coronary Artery Bypass Graft x 4 REMOVAL OF TONSILS,<12 Y/O S $ DUAL CHMBR PACER [id number] Left 09/17/2022 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 FAMILY HISTORY Problem Relation Age of Onset Heart Mother Heart Father CHF Colon Cancer No Family History Prostate Cancer No Family History Blood Clots No Family History NO PE OR DVT Social History Tobacco Use Smoking status: Former Types: Cigarettes Quit date: 08/11/1989 Years since quittin.6 Smokeless tobacco: Never Tobacco comments: quit 18-19 years ago Vaping Use Vaping Use: Never used Substance Use Topics Alcohol use: Yes Alcohol/week: 12.5 standard drinks Types: 2 Glasses of Wine (5oz), 2 Cans of Beer (12oz), 1 Mixed Drinks per week Comment: 1-2 beers per week Drug use: No ACTIVE PROBLEM LIST 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 Mixed Hyperlipidemia Hypothyroidism Generalized Osteoarthrosis, Unspecified Site Primary Localized Osteoarthrosis, Shoulder Region Osteoarthrosis, Unspecified Whether Generalized Or Localized, Other Specified Sites Spinal Stenosis of Lumbar Region With Neurogenic Claudication Insomnia Erectile Dysfunction Back Pain Essential Hypertension, Benign S/P Shoulder Replacement B12 Deficiency Vitamin D Deficiency Macrocytosis Venous Stasis of Both Lower Extremities Cad (Coronary Artery Disease) Diverticulosis History of Anemia Hx of Cabg Hx of Colonoscopy Hypertension Lumbar Stenosis Status Post Ligation of Left Atrial Appendage Osteoarthritis, Generalized Paf (Paroxysmal Atrial Fibrillation) ([facility]) Pvc's (Premature Ventricular Contractions) Benign Hypertension Rbbb Acute Stroke Due to Ischemia ([facility]) Vertebral Artery Occlusion, 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 Acute Ischemic Stroke ([facility]) Malnutrition of Moderate Degree ([facility]) Weakness 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 Take 20 mg p.o. twice daily, 20mg as needed for 3-7 days with increased edema then back to 20 mg twice daily nitroglycerin sublingual (NITROQUICK) 0.4 mg SL tablet nitroglycerin 0.4 mg sublingual tablet ondansetron (ZOFRAN) 8 mg tablet Take 1 tablet by mouth every 8 hours as needed. lidocaine-prilocaine (EMLA) 2.5-2.5 % cream Apply to port site about 45 mintues prior to treatment and cover prochlorperazine (COMPAZINE) 10 mg tablet Take 1 tablet by mouth every 6 hours as needed. rivaroxaban (XARELTO) 20 mg tablet Take 1 tablet by mouth daily with dinner. Resume Sep 20 2022 metoprolol tartrate, short acting, (LOPRESSOR) 25 mg tablet Take 1/2 tablet by mouth every 12 hours. New lower dose since in the hospital setting Sep 16 - Sep 18 cyanocobalamin (VITAMIN B-12) 1,000 mcg tab Take 1,000 mcg by mouth once daily. atorvastatin (LIPITOR) 40 mg tablet Take 0.5 tablets by mouth once daily. New lower dose as of 2021 levothyroxine (SYNTHROID) 112 mcg tablet Take 1 tablet by mouth once daily. ferrous sulfate 325 mg (65 mg iron) tablet Take 325 mg by mouth three times daily with meals. polyethylene glycol 3350 (MIRALAX, GLYCOLAX) 17 gram packet Take 17 g by mouth once daily as neededfor constipation. Dissolve dose in 4 - 8 ounces of liquid and take as directed. 1/2 capful every other day aspirin, enteric coated (ASPIRIN, ENTERIC COATED) 81 mg EC tablet Take 81 mg by mouth once daily. cholecalciferol (VITAMIN D3) 1,000 unit tab tablet Take 1,000 Units by mouth once daily. MULTIVITAMIN TABLET Take 1 tablet by mouth once daily. EXAM:BP 120/68 Pulse 90 Resp 16 Ht 170.2 cm (5' 7) Wt 78.9 kg (174 lb) BMI 27.25 kg/m Last Wt 03/12/23 : 78.9 kg (174 lb) 03/09/23 : 82.5 kg (181 lb 12.8 oz) 02/16/23 : 78.6 kg (173 lb 3.2 oz) 02/09/23 : 81.7 kg (180 lb 3.2 oz) PHYSICAL EXAM: Weight less x 6 pounds since early February 2023 General Appearance: Well appearing, alert, in no acute distress, well-hydrated, well nourished.. Skin: Skin color, texture, turgor normal, no suspicious rashes or lesions. Lymph Nodes: No cervical lymphadenopathy, No supraclavicular lymphadenopathy, No axillary lymphadenopathy. and No inguinal lymphadenopathy. Head: Normocephalic, no masses, lesions, tenderness or abnormalities. Eyes: Anicteric sclera. Pupils are equally round and reactive to light. Extraocular movements are intact. . Nose/Sinuses: Nares normal, septum midline, mucosa normal, no drainage or sinus tenderness. Oropharynx: Lips, mucosa, and tongue normal, teeth and gums normal, oropharynx normal. Neck: Supple, no adenopathy; thyroid symmetric, normal size, no bruits. Lungs: Lungs clear to auscultation. No wheezing, rhonchi, rales. Heart: RIRR without murmur, gallop, or rubs. No ectopy. Atrial fib , hughes controlled Abdomen: Normal abdominal exam, Abdomen soft, non-tender. Bowel sounds normal. No masses, organomegaly. Extremities: No deformities, skin discoloration, clubbing or cyanosis. Good capillary refill. . +2 edema in the ankles , equal and bilateral Musculoskeletal: No joint swelling, deformity, or tenderness. Back:no pain to palpation of vertebrae, good flexion and extension, good range of motion, no muscletenderness, reflexes are 2+ and symmetric, motor and sensory appear to be normal, negative SLR test, no evidence of scoliosis. Peripheral Pulses: Normal. Neurologic: Gait normal. Reflexes normal and symmetric. Sensation grossly intact.. Rectal: n/a Component Latest Ref Rng & Units 03/11/2023 WBC 3.70 - 11.00 k/uL 4.88 RBC 4.20 - 6.00 m/uL 2.70 (L) Hemoglobin 13.0 - 17.0 g/dL 9.7 (L) Hematocrit 39.0 - 51.0 % 30.5 (L) MCV 80.0 - 100.0 fL 113.0 (H) MCH 26.0 - 34.0 pg 35.9 (H) MCHC 30.5 - 36.0 g/dL 31.8 RDW-CV 11.5 - 15.0 % 20.6 (H) Platelet Count 150 - 400 k/uL 560 (H) MPV 9.0 - 12.7 fL 10.9 Neut% % 84.9 Abs Neut (ANC) 1.45 - 7.50 k/uL 4.14 Lymph% % 10.0 Abs Lymph 1.00 - 4.00 k/uL 0.49 (L) Weld% % 4.7 Abs Weld <0.87 k/uL 0.23 Eosin% % 0.0 Abs Eosin <0.46 k/uL <0.03 Baso% % 0.0 Abs Baso <0.11 k/uL <0.03 Immature Gran % % 0.4 IMMATURE GRANS (ABS) <0.10 k/uL <0.03 NRBC /100 WBC 0.6 Absolute nRBC <0.01 k/uL 0.03 (H) DTYPE Auto Protein, Total 6.3 - 8.0 g/dL 6.2 (L) Albumin 3.9 - 4.9 g/dL 4.0 Calcium 8.5 - 10.2 mg/dL 9.1 Bilirubin, Total 0.2 - 1.3 mg/dL 0.7 Alkaline Phosphatase 38 - 113 U/L 92 AST 14 - 40 U/L 31 ALT 10 - 54 U/L 45 Glucose 74 - 99 mg/dL 128 (H) BUN 9 - 24 mg/dL 38 (H) Creatinine 0.73 - 1.22 mg/dL 1.14 Sodium 136 - 144 mmol/L 141 Potassium 3.7 - 5.1 mmol/L 4.5 Chloride 97 - 105 mmol/L 100 CO2 22 - 30 mmol/L 29 Anion Gap 9 - 18 mmol/L 12 eGFR >=60 mL/min/1.73m 62 Cholesterol, Total <200 mg/dL 120 Triglyceride <150 mg/dL 34 HDL Cholesterol >39 mg/dL 57 Non HDL Cholesterol <130 mg/dL 63 Fasting Time hrs 12 VLDL Cholesterol <30 mg/dL 7 TC:HDL Ratio <5.10 2.11 LDL Cholesterol <100 mg/dL 56 LDL:HDL Ratio <2.54 0.98 Iron 41 - 186 ug/dL 84 TIBC 232 - 386 ug/dL 199 (L) Transferrin Saturation 15.0 - 57.0 % 42.2 Vitamin D 25 Hydroxy 31.0 - 80.0 ng/mL 45.7 TSH 0.270 - 4.200 mIU/L 1.340 Free T4 0.9 - 1.7 ng/dL 1.3 NT Pro BNP <450 pg/mL 16,014 (H)( see Echo Sep 2022 , relatively asymptomatic with the patients weight declining not increasing ) Echocardiography Report: Transthoracic Echo [facility] Date of service: 09/16/2022 12:12:43 PM Ordering physician: ISRAEL PRUITT Indication: Shortness of Breath Technologist: Abran Joy RDCS Interpreting physician: Ling Medel MD PATIENT: Name: MR. SRINI LUIS : 1935 Age: 86 years Gender: M History of hypertension, diabetes mellitus, coronary artery disease and arrhythmia. Primary rhythm: sinus. Secondary rhythm: PVC. Height: 171.70 cm BSA: 1.95 m Weight: 79.38 kg BMI: 26.9 kg/m Heart rate 46 bpm Blood pressure 122/53 mmHg Technically difficult exam due to uncooperative patient. Color Doppler was utilized to interrogate the cardiac valves assessed and spectral Doppler was utilized to determine the flow velocities and pressure gradients reported in this exam. MEASUREMENTS: Value Indexed Normal Max aortic dimension 3.8 cm Ao < 3.8 Left atrial volume 49 ml (biplane A-L) 25 ml/m Anjana <= 34 LV ID (diastole) 3.9 cm (2D) 2.00 cm/m LV ID (systole) 3.3 cm (2D) 1.70 cm/m IVS, leaflet tips 1.8 cm (2D) Posterior wall thickness 1.6 cm (2D) Left ventricular mass 275 g (2D) 141 g/m LV stroke volume 70 ml (2D 4-ch.) LVOT stroke volume 82 ml 43 ml/m LV end diastolic volume 103 ml (2D 4-ch.) 52.9 ml/m 34<=EDVi<75 LV end systolic volume 33 ml (2D 4-ch.) 16.8 ml/m Ejection Fraction 68 % (2D 4-ch.) EF > 52 FINDINGS: LEFT VENTRICLE The left ventricle is normal in size. There is moderate concentric left ventricular hypertrophy. Left ventricular systolic function is normal. Grade II left ventricular diastolic dysfunction. Mitral annular lateral E/e': 9.5. Mitral annular septal E/e': 23.8. Wall Motion: All scored segments are normal. RIGHT VENTRICLE The right ventricle is dilated. Right ventricular systolic function is mildly decreased. RV systolic tissue Doppler velocity is 10.9 cm/s. Tricuspid annular displacement is 1.3 cm. Estimated right ventricular systolic pressure is 46 mmHg plus right atrial pressure. Estimated right atrial pressure is not included as the IVC was not seen. LEFT ATRIUM The left atrial cavity is mildly dilated. RIGHT ATRIUM The right atrial cavity is dilated. MITRAL VALVE [place] mitral valve. There is mild (1+ - 2+) mitral valve regurgitation. There is thickening. There is calcification. Regurgitant orifice area (PISA) is 0.01 cm . The peak mitral valve gradient is 5 mmHg. The mean mitral valve gradient is 2 mmHg. The pressure half time is 90 msec. The peak mitral E/A ratio is 1.49. The average mitral E/e' ratio is 16.7. The mitral flow deceleration time is 311 msec. TRICUSPID VALVE [place] tricuspid valve. There is mild (1+ - 2+) tricuspid valve regurgitation. There is no thickening. AORTIC VALVE There is aortic valve stenosis. There is trace (trace - 1+) aortic valve regurgitation. Tricuspid aortic valve. There is no thickening. The peak gradient is 15 mmHg (peak velocity = 191.7 cm/s). The mean gradient is 8 mmHg. The LVOT mean velocity is 54.0 cm/s. The LVOT diameter is 2.3 cm. The aortic VTI is 48.3 cm. The mean velocity in the aortic valve is 136.0 cm/s. The dimensionless valve index is 0.41. AV area is 1.69 cm (0.87 cm /m ) by continuity, VTI. The LVOT stroke volume index is 43 ml/m . PULMONIC VALVE There is trace pulmonic valve regurgitation. Tricuspid pulmonic valve. There is no thickening. The peak gradient is 10 mmHg. AORTA The visualized aorta is borderline dilated. Measurements - Sinus: 3.4 cm. Sinotubular junction 3.4 cm. Mid ascending aorta 3.8 cm. PERICARDIUM The pericardium is normal. Impression CONCLUSIONS: - Technically difficult exam due to uncooperative patient. - Exam indication: Shortness of Breath - The left ventricle is normal in size. There is moderate concentric left ventricular hypertrophy. Left ventricular systolic function is normal. EF = 68 5% (2D 4-ch.) Grade II left ventricular diastolic dysfunction. - The right ventricle is dilated. Right ventricular systolic function is mildly decreased. - The left atrial cavity is mildly dilated. - The right atrial cavity is dilated. Mild to moderate TR with RVSP 46 mmhg with moderate PHTN Mild to moderate MR with Moderate MAC - The visualized aorta is borderline dilated with a maximal dimension of 3.8 cm. Off note pt looks in complete heart block? - Exam was compared with the prior CC echocardiographic exam performed on 07/07/2022 * * * Final * * * Specimen Collected: 09/16/22 12:12 PM EST Last Resulted: 09/16/22 12:32 PM EST ASSESSMENT/PLAN: 1. PAF (paroxysmal atrial fibrillation) ([facility]) - ICD9: 427.31, ICD10: I48.0 (primary diagnosis) Stable HR and on Xarelto , staying on current therapy 2. MDS (myelodysplastic syndrome) ([facility]) - ICD9: 238.75, ICD10: D46.9 Stable , on Chemo for CMML , responding with HGB now > 9.5 and tolerating chemo 3. Essential hypertension, benign - ICD9: 401.1, ICD10: I10 - good control - Continue current medication(s) - Increase furosemide (Lasix) to total 60 mg daily - Recommended regular aerobic exercise. - Recommend home blood pressure monitoring, to bring results in on next visit - Goal of BP <130/80 4. Hypothyroidism, unspecified type - ICD9: 244.9, ICD10: E03.9 - Instructed patient on importance of taking on an empty stomach either first thing in the morning or at bedtime. - continue current dose of Synthroid 0.112 mg 5. Chronic heart failure with preserved ejection fraction (HCC) - ICD9: 428.9, ICD10: I50.32 Seems clinically a bit volume overloaded , with 2+ edema , and known grade II DHD , and BNPT > 23842 , will increase Lasix to total 60 mg daily 6. Constipation due to slow transit - ICD9: 564.01, ICD10: K59.01 Stable on Miralax twice daily 7. 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HCC) - ICD9: 434.91, ICD10: I63.9 Stable , no reoccurrence , and left arm numbness that seems static and not progressive 8. Mixed hyperlipidemia - ICD9: 272.2, ICD10: E78.2 - good control - Continue current medication. Excellent #s 9. Vitamin D deficiency - ICD9: 268.9, ICD10: E55.9 Stable I spent a total of 30 minutes on the date of the service which included preparing to see the patient, [id number] patient care, completing clinical documentation, obtaining and/or reviewing separately obtained history, performing a medically appropriate examination, counseling and educating the pat ient/family/caregiver, ordering medications, tests, or procedures, communicating with other HCPs (not separately reported), independently interpreting results (not separately reported), communicatingresults to the patient/family/caregiver, and care coordination (not separately reported). 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; Confirmed Blk below His by His Bundle Electrogram Symptomatic bradycardia 09/15/2022 09/18/20 CHF (congestive heart failur e), NYHA class I, acute on chronic, diastolic 07/04/2022 08/26/2022 Xerosis cutis 12/14/2012 01/02/2015 Pruritus 12/14/2012 01/02/2015 Actinic skin damage 12/14/2012 01/02/2015 Solar lentigo 12/14/2012 01/02/2015 Myasthenia gravis 04/19/2012 09/15/2022 Viral warts, unspecified 09/29/2010 015 Irritated//Inflamed Seborrheic Keratosis 010 01/02/2015 Follow-up examination, following unspecified dheearj diane 06/11/2009 08/14/2009 ACTINIC DAMAGE///SOLAR SKIN DAMAGE NOS 8 01/02/2015 Dermatitis due to cosmetics 04/07/200812/11 ACTINIC DAMAGE///CHR SOLAR SKIN DAMAGE NOS 04/0701/02/2015 Other seborrheic keratosis 04/07/200801/02 SOLAR LENTIGINES///DYSCHROMIA OTHER 04/07/2008 01/02/2015 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 01/02/2015 Special screening for malignant neoplasms, colon 08/11/2005 01/02/2015 Follow-up examination following surgery 10/31/20 03 01/02/2015 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 of ant icoagulants with INR goal of 2.0-3.0 09/15/2022 Nocturnal hypoxemia 08/29/2022 Overview: On oxygen at night documented as of this encounter (statuses as of 03/12/2023) [facility] History of Past illness Narrative* Problem Noted Date Resolved Date USP current use of ant icoagulants with INR goal of 2.0-3.0 01/05/2023 01/05/2023 CHB (complete heart block) 09/17/202209/18 Overview: 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; Confirmed Blk below His by His Bundle Electrogram Symptomatic bradycardia 09/15/2022 09/18/20 CHF (congestive heart failur e), NYHA class I, acute on chronic, diastolic 07/04/2022 08/26/2022 Xerosis cutis 12/14/2012 01/02/2015 Pruritus 12/14/2012 01/02/2015 Actinic skin damage 12/14/2012 01/02/2015 Solar lentigo 12/14/2012 01/02/2015 Myasthenia gravis 04/19/2012 09/15/2022 Viral warts, unspecified 09/29/2010 015 Irritated//Inflamed Seborrheic Keratosis 010 01/02/2015 Follow-up examination, following unspecified dheeraj diane 06/11/2009 08/14/2009 ACTINIC DAMAGE///SOLAR SKIN DAMAGE NOS 8 01/02/2015 Dermatitis due to cosmetics 04/07/200812/11 ACTINIC DAMAGE///CHR SOLAR SKIN DAMAGE NOS 04/0701/02/2015 Other seborrheic keratosis 04/07/200801/02 SOLAR LENTIGINES///DYSCHROMIA OTHER 04/07/2008 01/02/2015 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 01/02/2015 Special screening for malignant neoplasms, colon 08/11/2005 01/02/2015 Follow-up examination following surgery 10/31/2001/02/2015 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05-03-[facility]23 History of Present illness Narrative* Randa Rowell, - 03/11/2023 10:53 AM EDT HEMATOLOGY/ONCOLOGY Follow up Srini Luis 1935 October 09, 2022 Referred by: SELF Diagnosis: CMML-1 Date of Diagnosis: 10/24/22 Current Treatment: Aza C1D1 12/15/22-present CC: follow up CMML HPI: Srini Luis is a 86 year old male w/ PMHx macrocytic anemia, CAD s/p 4V CABG, CVA, pAfib, HTN, hypothyroidism, heart block s/p pacemaker who presents macrocytic anemia. In review of his records, he does have a hx of B12 deficiency back in 2019, which appears to be whgen his anemia began. He has since progressively been more anemic. During this time he has also had significant cardiac diseases requiring treatment. He remains on MVI currently, even with supplementation of b12 he remains siognificantly macrocytic. No significant other cytopenias. No night sweats, no abnormal weight changes or weight loss. Interval Hx: Since last being seen, Mr. Luis presents for follow up of [facility]. He continues to tolerate the azavery well. No significant nausea or diarrhea. Does get some fatigue towards the end of the week as well as some insomnia. Otherwise doing well. 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; Confirmed Blk below His by His Bundle Electrogram CVA (cerebral vascular accident) ([facility]) 08/22/2022 Diverticulosis History of anemia Hx of CABG 07/22/2021 4 vessel CABG with ORNELAS-LAD, SVG-RI, SVG-OM, and SVG-RCA in [place] Hx of colonoscopy 09/27/2015 no reported polyps per patient recollection Hypertension Hypothyroidism USP current use of anticoagulant Xarelto 20 mg daily Lumbar stenosis MRI 2018 , severe LCS L2-3 Mixed hyperlipidemia Myasthenia gravis ([facility]) Last seen by neurology July 29, 2017. 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 2017 when he's been off medication Nocturnal hypoxemia On oxygen at night Osteoarthritis, generalized Pacemaker 09/17/2022 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 PAF (paroxysmal atrial fibrillation) ([facility]) 2020 Post CABG atrial fibrillation PVC's (premature ventricular contractions) RBBB Status post ligation of left atrial appendage 07/2021 At time of CABG PAST SURGICAL HISTORY Procedure Laterality Date ANKLE RIGHT OP SURGERY Right 12/18/2020 Dr Elba Sherman [facility] ARTHROPLASTY TOTAL SHOULDER 11/09/2008 right ARTHROSCOPY OF JOINT UNLISTED Elbow right CABG (4) VEIN GRAFTS & ARTERIAL GRAFT(S) 07/21/2021 In [facility] COLONOSCOPY FLX DX W/COLLJ SPEC WHEN PFRMD 09/01/2005 Colonoscopy COLONOSCOPY FLX DX W/COLLJ SPEC WHEN PFRMD 09/27/2015 Colonoscopy PAST SURGICAL HISTORY OF 07/21/2021 Coronary Artery Bypass Graft x 4 REMOVAL OF TONSILS,<12 Y/O S $ DUAL CHMBR PACER [id number] Left 09/17/2022 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 Current Outpatient Medications Medication Sig Dispense Refill furosemide (LASIX) 20 mg tablet Take 1 tablet by mouth as directed. Take 20 mg p.o. twice daily, 20mg as needed for 3-7 days with increased edema then back to 20 mg twice daily nitroglycerin sublingual (NITROQUICK) 0.4 mg SL tablet nitroglycerin 0.4 mg sublingual tablet ondansetron (ZOFRAN) 8 mg tablet Take 1 tablet by mouth every 8 hours as needed. 30 tablet 5 lidocaine-prilocaine (EMLA) 2.5-2.5 % cream Apply to port site about 45 mintues prior to treatment and cover 30 g 3 prochlorperazine (COMPAZINE) 10 mg tablet Take 1 tablet by mouth every 6 hours as needed. 30 tablet3 rivaroxaban (XARELTO) 20 mg tablet Take 1 tablet by mouth daily with dinner. Resume Sep 20 2022 90 tablet 3 metoprolol tartrate, short acting, (LOPRESSOR) 25 mg tablet Take 1/2 tablet by mouth every 12 hours. New lower dose since in the hospital setting Sep 16 - Sep 18 90 tablet 3 cyanocobalamin (VITAMIN B-12) 1,000 mcg tab Take 1,000 mcg by mouth once daily. atorvastatin (LIPITOR) 40 mg tablet Take 0.5 tablets by mouth once daily. New lower dose as of 2021 90 tablet 3 levothyroxine (SYNTHROID) 112 mcg tablet Take 1 tablet by mouth once daily. 90 tablet 3 ferrous sulfate 325 mg (65 mg iron) tablet Take 325 mg by mouth three times daily with meals. polyethylene glycol 3350 (MIRALAX, GLYCOLAX) 17 gram packet Take 17 g by mouth once daily as neededfor constipation. Dissolve dose in 4 - 8 ounces of liquid and take as directed. 1/2 capful every other day aspirin, enteric coated (ASPIRIN, ENTERIC COATED) 81 mg EC tablet Take 81 mg by mouth once daily. cholecalciferol (VITAMIN D3) 1,000 unit tab tablet Take 1,000 Units by mouth once daily. MULTIVITAMIN TABLET Take 1 tablet by mouth once daily. 0 No current facility-administered medications for this visit. Facility-Administered Medications Ordered in Other Visits Medication Dose Route Frequency Provider Last Rate Last Admin NaCl 0.9% iv infusion 500-999 mL/hr INTRAVENOUS PRN Randa Sindel, DO diphenhydrAMINE 50 mg injection (BENADRYL) 50 mg INTRAVENOUS PRN Randa Sindel, DO hydrocortisone sodium succinate (PF) 100 mg injection (Solu-CORTEF) 100 mg INTRAVENOUS PRN Randa Sindel, DO EPINEPHrine 1 mg/mL (1 mL) 0.3 mg injection 0.3 mg INTRAMUSCULAR PRN Randa Sindel, DO heparin 100 unit/mL 500 Units injection 5 mL INTRAVENOUS DIRECTED PRN Randa Sindel, DO 500 Unitsat 03/11/23 0918 sodium chloride 0.9 % (flush) 10-20 mL (BD POSIFLUSH) 10-20 mL INTRAVENOUS PRN Randa Sindel, DO 20 mL at 03/11/23 0918 ALLERGIES Allergen Reactions Simvastatin Other: See Comments Elevated CK FAMILY HISTORY Problem Relation Age of Onset Heart Mother Heart Father CHF Colon Cancer No Family History Prostate Cancer No Family History Blood Clots No Family History NO PE OR DVT Social History Tobacco Use Smoking status: Former Types: Cigarettes Quit date: 08/11/1989 Years since quittin.6 Smokeless tobacco: Never Tobacco comments: quit 18-19 years ago Vaping Use Vaping Use: Never used Substance Use Topics Alcohol use: Yes Alcohol/week: 12.5 standard drinks Types: 2 Glasses of Wine (5oz), 2 Cans of Beer (12oz), 1 Mixed Drinks per week Comment: 1-2 beers per week Drug use: No Review of Systems: A complete ROS was obtained and is otherwise neg except as noted in HPI Physical Exam: There were no vitals taken for this visit. ECOG PS: 2 General: Aox3, NAD HEENT: EOMI, PERRLA, sclera anicteric, MMM Neck: Supple, no thyroid nodules, no JVD, no adenopathy Chest: CTAB w/o w/r/r Heart: RRR w/o m/r/g. Abdomen: Soft, nontender, nondistended, bowel sounds present, no organomegaly or mass Extremities: No edema, no erythema 2+ DP Pulses Neurological: CN2-12 grossly intact Skin: Warm and dry with no rashes or ulcerations. Nodes: No palpable adenopathy in the cervical, supraclavicular, infraclavicular, or axillary regions. Hematologic: no bruising or petechiae. Psychiatric: Alert and oriented x3 No change Labs Recent Labs 03/09/23 0839 WBC 2.56* HB 8.8* HCT 28.7* PLT 359 NA 140 K 4.0 CHLOR 104 CO2 31 CREAT 1.01 BUN 26* GLUC 126* TPROT 5.6* ALB 3.5 CA 8.6 ALKPHOS 75 TBILI 0.8 AST 24 ALT 27 Radiology: Pathology: Addendum Cytogenetics (see separate report) revealed a normal male karyotype: 46,XY[20]. The myeloid NGS panel (see separate report) identified the following variants (with VAFs): SF3B1 p.H662Q (41.7%) and TET2 p.[id number]*6 (46%). 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 The threshold for absolute monocytosis in CMML has since been lowered to 0.5 k/uL (from 1.0 k/uL in the 2016 WHO), which accounts for the discrepancy. Further, the category of CMML-0 (which this neoplasm would have otherwise been classified as) has been eliminated by both classification systems in lieu of a two-tiered blast-basedgrading scheme (of CMML-1 and -2 only). The patient had a single CBC since 2019 (specifically 08/24/2022) in which there was not a relative monocytosis; this is attributable to transiently increased n eutrophils in the setting of acute stroke/ischemia, and is here regarded as an outlier. Addendum electronically signed by Nnamdi Hernandez MD on 11/12/2022 at 3:48 PM FINAL DIAGNOSIS A-C. 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 Diagnosis Comment The bone marrow is mildly hypercellular for age (overall approximately 30%). Blasts are not increased. There is dyserythropoiesis with increased ring sideroblasts (exceeding 50% of erythroid forms), along with morphologic changes as described below. There is also mild dysmegakaryopoiesis with a subset of forms with nuclear lobes. 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 Cytogenetics and myeloid NGS are currently pending and results will be reported separately and in an addendum (along with final classification) when available. The case was reviewed by Dr. Tigist Mcqueen, who agrees with this assessment. Assessment and Plan: Srini Luis is a 86 year old male w/ PMHx macrocytic anemia, CAD s/p 4V CABG, CVA, pAfib, HTN, hypothyroidism, heart block s/p pacemaker who presents macrocytic anemia # CMML1 - While initially given the significant dysplasia and ringed sideroblasts with TET2 and SF3B1 was felt to be due to MDS, in full review of his prior CBCs, and with the new classification of CMML-1 which lowered the absolute monocytosis down to 0.5 from 1.0, this now is classified as CMML1 - Discussed with patient updated diagnosis due to new classification from WHO - Discussed CMML1 is different from MDS with overlap disease and is higher risk for progression to AML. CMML1 has ~25% risk of transformation over 1 year with median PFS of 16 months - Discussed due to this we typically treated with HMA (aza or dec) at 5-7 days q28 days though can stretch to q6 or even q8 weeks. - goal of treatment would be to extend time til progression of AML - Discussed this is incurable without an allo SCT of which he is not a candidate for - Started Aza. 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 - cont to monitor # Neutropenia - 2/2 chemotherapy - cont to monitor Randa Rowell DO Hematology/Oncology [facility] Medical Decision Making: Problems: High: Illness/injury w/ threat to life/body function Risk: High: Drug therapy requiring intensive monitoring Medical Decision Making Level: 5 - High [facility] History of Past illness Narrative* Problem Noted Date Resolved Date USP current use of ant icoagulants with INR goal of 2.0-3.0 01/05/2023 01/05/2023 CHB (complete heart block) 09/17/202209/18 Overview: 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; Confirmed Blk below His by His Bundle Electrogram Symptomatic bradycardia 09/15/2022 09/18/20 22 CHF (congestive heart failur e), NYHA class I, acute on chronic, diastolic 07/04/2022 08/26/2022 Xerosis cutis 12/14/2012 01/02/2015 Pruritus 12/14/2012 01/02/2015 Actinic skin damage 12/14/2012 01/02/2015 Solar lentigo 12/14/2012 01/02/2015 Myasthenia gravis 04/19/2012 09/15/2022 Viral warts, unspecified 09/29/2010 015 Irritated//Inflamed Seborrheic Keratosis 010 01/02/2015 Follow-up examination, following unspecified dheeraj diane 06/11/2009 08/14/2009 ACTINIC DAMAGE///SOLAR SKIN DAMAGE NOS 8 01/02/2015 Dermatitis due to cosmetics 04/07/200812/11 ACTINIC DAMAGE///CHR SOLAR SKIN DAMAGE NOS 04/0701/02/2015 Other seborrheic keratosis 04/07/200801/02 SOLAR LENTIGINES///DYSCHROMIA OTHER 04/07/2008 01/02/2015 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 01/02/2015 Special screening for malignant neoplasms, colon 08/11/2005 01/02/2015 Follow-up examination following surgery 10/31/20 03 01/02/2015 USP current use of ant icoagulants with INR goal of 2.0-3.0 09/15/2022 Nocturnal hypoxemia 08/29/2022 Overview: On oxygen at night documented as of this encounter (statuses as of 03/11/2023) [facility]05[facility] History of Past illness Narrative* Problem Noted Date Resolved Date 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 of ant icoagulants with INR goal of 2.0-3.0 01/05/2023 01/05/2023 CHB (complete heart block) 09/17/202209/18 Overview: 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; Confirmed Blk below His by His Bundle Electrogram Symptomatic bradycardia 09/15/2022 09/18/20 CHF (congestive heart failur e), NYHA class I, acute on chronic, diastolic 07/04/2022 08/26/2022 Xerosis cutis 12/14/2012 01/02/2015 Pruritus 12/14/2012 01/02/2015 Actinic skin damage 12/14/2012 01/02/2015 Solar lentigo 12/14/2012 01/02/2015 Myasthenia gravis 04/19/2012 09/15/2022 Viral warts, unspecified 09/29/2010 015 Irritated//Inflamed Seborrheic Keratosis 010 01/02/2015 Follow-up examination, following unspecified dheeraj diane 06/11/2009 08/14/2009 ACTINIC DAMAGE///SOLAR SKIN DAMAGE NOS 8 01/02/2015 Dermatitis due to cosmetics 04/07/200812/11 ACTINIC DAMAGE///CHR SOLAR SKIN DAMAGE NOS 04/0701/02/2015 Other seborrheic keratosis 04/07/200801/02 SOLAR LENTIGINES///DYSCHROMIA OTHER 04/07/2008 01/02/2015 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 01/02/2015 Special screening for malignant neoplasms, colon 08/11/2005 01/02/2015 Follow-up examination following surgery 10/31/20 03 01/02/2015 USP current use of ant icoagulants with INR goal of 2.0-3.0 09/15/2022 Nocturnal hypoxemia 08/29/2022 Overview: On oxygen at night documented as of this encounter (statuses as of 03/11/2023) [facility]05-01-2023 History of Past illness Narrative* Problem Noted Date Resolved Date 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 of ant icoagulants with INR goal of 2.0-3.0 01/05/2023 01/05/2023 CHB (complete heart block) 09/17/202209/18 Overview: 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; Confirmed Blk below His by His Bundle Electrogram Symptomatic bradycardia 09/15/2022 09/18/20 CHF (congestive heart failur e), NYHA class I, acute on chronic, diastolic 07/04/2022 08/26/2022 Xerosis cutis 12/14/2012 01/02/2015 Pruritus 12/14/2012 01/02/2015 Actinic skin damage 12/14/2012 01/02/2015 Solar lentigo 12/14/2012 01/02/2015 Myasthenia gravis 04/19/2012 09/15/2022 Viral warts, unspecified 09/29/2010 015 Irritated//Inflamed Seborrheic Keratosis 010 01/02/2015 Follow-up examination, following unspecified dheeraj diane 06/11/2009 08/14/2009 ACTINIC DAMAGE///SOLAR SKIN DAMAGE NOS 8 01/02/2015 Dermatitis due to cosmetics 04/07/200812/11 ACTINIC DAMAGE///CHR SOLAR SKIN DAMAGE NOS 04/0701/02/2015 Other seborrheic keratosis 04/07/200801/02 SOLAR LENTIGINES///DYSCHROMIA OTHER 04/07/2008 01/02/2015 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 01/02/2015 Special screening for malignant neoplasms, colon 08/11/2005 01/02/2015 Follow-up examination following surgery 10/31/20 03 01/02/2015 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 of ant icoagulants with INR goal of 2.0-3.0 09/15/2022 Nocturnal hypoxemia 08/29/2022 Overview: On oxygen at night documented as of this encounter (statuses as of 03/09/2023) [facility]04-24-2023 History of Past illness Narrative* Problem Noted Date Resolved Date USP current use of ant icoagulants with INR goal of 2.0-3.0 01/05/2023 01/05/2023 CHB (complete heart block) 09/17/202209/18 Overview: 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; Confirmed Blk below His by His Bundle Electrogram Symptomatic bradycardia 09/15/2022 09/18/20 CHF (congestive heart failur e), NYHA class I, acute on chronic, diastolic 07/04/2022 08/26/2022 Xerosis cutis 12/14/2012 01/02/2015 Pruritus 12/14/2012 01/02/2015 Actinic skin damage 12/14/2012 01/02/2015 Solar lentigo 12/14/2012 01/02/2015 Myasthenia gravis 04/19/2012 09/15/2022 Viral warts, unspecified 09/29/2010 015 Irritated//Inflamed Seborrheic Keratosis 010 01/02/2015 Follow-up examination, following unspecified dheeraj diane 06/11/2009 08/14/2009 ACTINIC DAMAGE///SOLAR SKIN DAMAGE NOS 8 01/02/2015 Dermatitis due to cosmetics 04/07/200812/11 ACTINIC DAMAGE///CHR SOLAR SKIN DAMAGE NOS 04/0701/02/2015 Other seborrheic keratosis 04/07/200801/02 SOLAR LENTIGINES///DYSCHROMIA OTHER 04/07/2008 01/02/2015 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 01/02/2015 Special screening for malignant neoplasms, colon 08/11/2005 01/02/2015 Follow-up examination following surgery 10/31/20 03 01/02/2015 USP current use of ant icoagulants with INR goal of 2.0-3.0 09/15/2022 Nocturnal hypoxemia 08/29/2022 Overview: On oxygen at night documented as of this encounter (statuses as of 03/02/2023) [facility]04-11-2023 History of Past illness Narrative* Problem Noted Date Resolved Date 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 of ant icoagulants with INR goal of 2.0-3.0 01/05/2023 01/05/2023 CHB (complete heart block) 09/17/202209/18 Overview: 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; Confirmed Blk below His by His Bundle Electrogram Symptomatic bradycardia 09/15/2022 09/18/20 CHF (congestive heart failur e), NYHA class I, acute on chronic, diastolic 07/04/2022 08/26/2022 Xerosis cutis 12/14/2012 01/02/2015 Pruritus 12/14/2012 01/02/2015 Actinic skin damage 12/14/2012 01/02/2015 Solar lentigo 12/14/2012 01/02/2015 Myasthenia gravis 04/19/2012 09/15/2022 Viral warts, unspecified 09/29/2010 015 Irritated//Inflamed Seborrheic Keratosis 010 01/02/2015 Follow-up examination, following unspecified dheeraj diane 06/11/2009 08/14/2009 ACTINIC DAMAGE///SOLAR SKIN DAMAGE NOS 200 8 01/02/2015 Dermatitis due to cosmetics 04/07/200812/11 ACTINIC DAMAGE///CHR SOLAR SKIN DAMAGE NOS 04/0701/02/2015 Other seborrheic keratosis 04/07/200801/02 SOLAR LENTIGINES///DYSCHROMIA OTHER 04/07/2008 01/02/2015 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 01/02/2015 Special screening for malignant neoplasms, colon 08/11/2005 01/02/2015 Follow-up examination following surgery 10/31/20 03 01/02/2015 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 of ant icoagulants with INR goal of 2.0-3.0 09/15/2022 Nocturnal hypoxemia 08/29/2022 Overview: On oxygen at night documented as of this encounter (statuses as of 02/17/2023) [facility]04-10-2023 History of Past illness Narrative* Problem Noted Date Resolved Date USP current use of ant icoagulants with INR goal of 2.0-3.0 01/05/2023 01/05/2023 CHB (complete heart block) 09/17/202209/18 Overview: 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; Confirmed Blk below His by His Bundle Electrogram Symptomatic bradycardia 09/15/2022 09/18/20 CHF (congestive heart failur e), NYHA class I, acute on chronic, diastolic 07/04/2022 08/26/2022 Xerosis cutis 12/14/2012 01/02/2015 Pruritus 12/14/2012 01/02/2015 Actinic skin damage 12/14/2012 01/02/2015 Solar lentigo 12/14/2012 01/02/2015 Myasthenia gravis 04/19/2012 09/15/2022 Viral warts, unspecified 09/29/2010 015 Irritated//Inflamed Seborrheic Keratosis 010 01/02/2015 Follow-up examination, following unspecified dheeraj diane 06/11/2009 08/14/2009 ACTINIC DAMAGE///SOLAR SKIN DAMAGE NOS 8 01/02/2015 Dermatitis due to cosmetics 04/07/200812/11 ACTINIC DAMAGE///CHR SOLAR SKIN DAMAGE NOS 04/0701/02/2015 Other seborrheic keratosis 04/07/200801/02 SOLAR LENTIGINES///DYSCHROMIA OTHER 04/07/2008 01/02/2015 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 01/02/2015 Special screening for malignant neoplasms, colon 08/11/2005 01/02/2015 Follow-up examination following surgery 10/31/20 03 01/02/2015 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 of ant icoagulants with INR goal of 2.0-3.0 09/15/2022 Nocturnal hypoxemia 08/29/2022 Overview: On oxygen at night documented as of this encounter (statuses as of 02/16/2023) [facility]04-07-2023 History of Past illness Narrative* Problem Noted Date Resolved Date USP current use of ant icoagulants with INR goal of 2.0-3.0 01/05/2023 01/05/2023 CHB (complete heart block) 09/17/202209/18 Overview: 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; Confirmed Blk below His by His Bundle Electrogram Symptomatic bradycardia 09/15/2022 09/18/20 CHF (congestive heart failur e), NYHA class I, acute on chronic, diastolic 07/04/2022 08/26/2022 Xerosis cutis 12/14/2012 01/02/2015 Pruritus 12/14/2012 01/02/2015 Actinic skin damage 12/14/2012 01/02/2015 Solar lentigo 12/14/2012 01/02/2015 Myasthenia gravis 04/19/2012 09/15/2022 Viral warts, unspecified 09/29/2010 015 Irritated//Inflamed Seborrheic Keratosis 010 01/02/2015 Follow-up examination, following unspecified dheeraj diane 06/11/2009 08/14/2009 ACTINIC DAMAGE///SOLAR SKIN DAMAGE NOS 8 01/02/2015 Dermatitis due to cosmetics 04/07/200812/11 ACTINIC DAMAGE///CHR SOLAR SKIN DAMAGE NOS 04/0701/02/2015 Other seborrheic keratosis 04/07/200801/02 SOLAR LENTIGINES///DYSCHROMIA OTHER 04/07/2008 01/02/2015 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 01/02/2015 Special screening for malignant neoplasms, colon 08/11/2005 01/02/2015 Follow-up examination following surgery 10/31/20 03 01/02/2015 USP current use of ant icoagulants with INR goal of 2.0-3.0 09/15/2022 Nocturnal hypoxemia 08/29/2022 Overview: On oxygen at night documented as of this encounter (statuses as of 02/13/2023) [facility]04-06-2023 History of Past illness Narrative* Problem Noted Date Resolved Date USP current use of ant icoagulants with INR goal of 2.0-3.0 01/05/2023 01/05/2023 CHB (complete heart block) 09/17/202209/18 Overview: 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; Confirmed Blk below His by His Bundle Electrogram Symptomatic bradycardia 09/15/2022 09/18/20 CHF (congestive heart failur e), NYHA class I, acute on chronic, diastolic 07/04/2022 08/26/2022 Xerosis cutis 12/14/2012 01/02/2015 Pruritus 12/14/2012 01/02/2015 Actinic skin damage 12/14/2012 01/02/2015 Solar lentigo 12/14/2012 01/02/2015 Myasthenia gravis 04/19/2012 09/15/2022 Viral warts, unspecified 09/29/2010 015 Irritated//Inflamed Seborrheic Keratosis 010 01/02/2015 Follow-up examination, following unspecified dheeraj diane 06/11/2009 08/14/2009 ACTINIC DAMAGE///SOLAR SKIN DAMAGE NOS 8 01/02/2015 Dermatitis due to cosmetics 04/07/200812/11 ACTINIC DAMAGE///CHR SOLAR SKIN DAMAGE NOS 04/0701/02/2015 Other seborrheic keratosis 04/07/200801/02 SOLAR LENTIGINES///DYSCHROMIA OTHER 04/07/2008 01/02/2015 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 01/02/2015 Special screening for malignant neoplasms, colon 08/11/2005 01/02/2015 Follow-up examination following surgery 10/31/20 03 01/02/2015 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 of ant icoagulants with INR goal of 2.0-3.0 09/15/2022 Nocturnal hypoxemia 08/29/2022 Overview: On oxygen at night documented as of this encounter (statuses as of 02/12/2023) [facility]04-05-2023 History of Past illness Narrative* Problem Noted Date Resolved Date USP current use of ant icoagulants with INR goal of 2.0-3.0 01/05/2023 01/05/2023 CHB (complete heart block) 09/17/202209/18 Overview: 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; Confirmed Blk below His by His Bundle Electrogram Symptomatic bradycardia 09/15/2022 09/18/20 CHF (congestive heart failur e), NYHA class I, acute on chronic, diastolic 07/04/2022 08/26/2022 Xerosis cutis 12/14/2012 01/02/2015 Pruritus 12/14/2012 01/02/2015 Actinic skin damage 12/14/2012 01/02/2015 Solar lentigo 12/14/2012 01/02/2015 Myasthenia gravis 04/19/2012 09/15/2022 Viral warts, unspecified 09/29/2010 015 Irritated//Inflamed Seborrheic Keratosis 010 01/02/2015 Follow-up examination, following unspecified dheeraj diane 06/11/2009 08/14/2009 ACTINIC DAMAGE///SOLAR SKIN DAMAGE NOS 8 01/02/2015 Dermatitis due to cosmetics 04/07/200812/11 ACTINIC DAMAGE///CHR SOLAR SKIN DAMAGE NOS 04/0701/02/2015 Other seborrheic keratosis 04/07/200801/02 SOLAR LENTIGINES///DYSCHROMIA OTHER 04/07/2008 01/02/2015 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 01/02/2015 Special screening for malignant neoplasms, colon 08/11/2005 01/02/2015 Follow-up examination following surgery 10/31/20 03 01/02/2015 USP current use of ant icoagulants with INR goal of 2.0-3.0 09/15/2022 Nocturnal hypoxemia 08/29/2022 Overview: On oxygen at night documented as of this encounter (statuses as of 02/11/2023) [facility]04-04-2023 History of Past illness Narrative* Problem Noted Date Resolved Date 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 of ant icoagulants with INR goal of 2.0-3.0 01/05/2023 01/05/2023 CHB (complete heart block) 09/17/202209/18 Overview: 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; Confirmed Blk below His by His Bundle Electrogram Symptomatic bradycardia 09/15/2022 09/18/20 CHF (congestive heart failur e), NYHA class I, acute on chronic, diastolic 07/04/2022 08/26/2022 Xerosis cutis 12/14/2012 01/02/2015 Pruritus 12/14/2012 01/02/2015 Actinic skin damage 12/14/2012 01/02/2015 Solar lentigo 12/14/2012 01/02/2015 Myasthenia gravis 04/19/2012 09/15/2022 Viral warts, unspecified 09/29/2010 015 Irritated//Inflamed Seborrheic Keratosis 010 01/02/2015 Follow-up examination, following unspecified dheeraj diane 06/11/2009 08/14/2009 ACTINIC DAMAGE///SOLAR SKIN DAMAGE NOS 200 8 01/02/2015 Dermatitis due to cosmetics 04/07/200812/11 ACTINIC DAMAGE///CHR SOLAR SKIN DAMAGE NOS 04/0701/02/2015 Other seborrheic keratosis 04/07/200801/02 SOLAR LENTIGINES///DYSCHROMIA OTHER 04/07/2008 01/02/2015 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 01/02/2015 Special screening for malignant neoplasms, colon 08/11/2005 01/02/2015 Follow-up examination following surgery 10/31/20 03 01/02/2015 USP current use of ant icoagulants with INR goal of 2.0-3.0 09/15/2022 Nocturnal hypoxemia 08/29/2022 Overview: On oxygen at night documented as of this encounter (statuses as of 02/10/2023) [facility]04-03-2023 History of Past illness Narrative* Problem Noted Date Resolved Date 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 of ant icoagulants with INR goal of 2.0-3.0 01/05/2023 01/05/2023 CHB (complete heart block) 09/17/202209/18 Overview: 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; Confirmed Blk below His by His Bundle Electrogram Symptomatic bradycardia 09/15/2022 09/18/20 CHF (congestive heart failur e), NYHA class I, acute on chronic, diastolic 07/04/2022 08/26/2022 Xerosis cutis 12/14/2012 01/02/2015 Pruritus 12/14/2012 01/02/2015 Actinic skin damage 12/14/2012 01/02/2015 Solar lentigo 12/14/2012 01/02/2015 Myasthenia gravis 04/19/2012 09/15/2022 Viral warts, unspecified 09/29/2010 015 Irritated//Inflamed Seborrheic Keratosis 010 01/02/2015 Follow-up examination, following unspecified dheeraj diane 06/11/2009 08/14/2009 ACTINIC DAMAGE///SOLAR SKIN DAMAGE NOS 8 01/02/2015 Dermatitis due to cosmetics 04/07/200812/11 ACTINIC DAMAGE///CHR SOLAR SKIN DAMAGE NOS 04/0701/02/2015 Other seborrheic keratosis 04/07/200801/02 SOLAR LENTIGINES///DYSCHROMIA OTHER 04/07/2008 01/02/2015 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 01/02/2015 Special screening for malignant neoplasms, colon 08/11/2005 01/02/2015 Follow-up examination following surgery 10/31/20 03 01/02/2015 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 of ant icoagulants with INR goal of 2.0-3.0 09/15/2022 Nocturnal hypoxemia 08/29/2022 Overview: On oxygen at night documented as of this encounter (statuses as of 02/09/2023) [facility]03-29-2023 [facility]03-29-2023 History of Present illness Narrative* Randa Rowell, DO - 02/04/2023 11:28 AM EDT HEMATOLOGY/ONCOLOGY Follow up Srini Luis 1935 October 09, 2022 Referred by: SELF Diagnosis: CMML-1 Date of Diagnosis: 10/24/22 Current Treatment: Aza C1D1 12/15/22-present CC: follow up CMML HPI: Srini Luis is a 86 year old male w/ PMHx macrocytic anemia, CAD s/p 4V CABG, CVA, pAfib, HTN, hypothyroidism, heart block s/p pacemaker who presents macrocytic anemia. In review of his records, he does have a hx of B12 deficiency back in 2019, which appears to be whgen his anemia began. He has since progressively been more anemic. During this time he has also had significant cardiac diseases requiring treatment. He remains on MVI currently, even with supplementation of b12 he remains siognificantly macrocytic. No significant other cytopenias. No night sweats, no abnormal weight changes or weight loss. Interval Hx: Since last being seen, Mr. 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 Reports doing well with treatment. Denied N/V/F/C/SOB/CP/abd pain. 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 2017 when he's been off medication Nocturnal hypoxemia On oxygen at night Osteoarthritis, generalized Pacemaker 09/17/2022 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 PAF (paroxysmal atrial fibrillation) ([facility]) 2020 Post CABG atrial fibrillation PVC's (premature ventricular contractions) RBBB Status post ligation of left atrial appendage 07/2021 At time of CABG PAST SURGICAL HISTORY Procedure Laterality Date ANKLE RIGHT OP SURGERY Right 12/18/2020 Dr Elba Sherman [facility] ARTHROPLASTY TOTAL SHOULDER 11/09/2008 right ARTHROSCOPY OF JOINT UNLISTED Elbow right CABG (4) VEIN GRAFTS & ARTERIAL GRAFT(S) 07/21/2021 In [facility] COLONOSCOPY FLX DX W/COLLJ SPEC WHEN PFRMD 09/01/2005 Colonoscopy COLONOSCOPY FLX DX W/COLLJ SPEC WHEN PFRMD 09/27/2015 Colonoscopy PAST SURGICAL HISTORY OF 07/21/2021 Coronary Artery Bypass Graft x 4 REMOVAL OF TONSILS,<12 Y/O S $ DUAL CHMBR PACER [id number] Left 09/17/2022 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 Current Outpatient Medications Medication Sig Dispense Refill furosemide (LASIX) 20 mg tablet Take 1 tablet by mouth as directed. Take 20 mg p.o. twice daily, 20mg as needed for 3-7 days with increased edema then back to 20 mg twice daily nitroglycerin sublingual (NITROQUICK) 0.4 mg SL tablet nitroglycerin 0.4 mg sublingual tablet ondansetron (ZOFRAN) 8 mg tablet Take 1 tablet by mouth every 8 hours as needed. 30 tablet 5 lidocaine-prilocaine (EMLA) 2.5-2.5 % cream Apply to port site about 45 mintues prior to treatment and cover 30 g 3 prochlorperazine (COMPAZINE) 10 mg tablet Take 1 tablet by mouth every 6 hours as needed. 30 tablet3 rivaroxaban (XARELTO) 20 mg tablet Take 1 tablet by mouth daily with dinner. Resume Sep 20 2022 90 tablet 3 metoprolol tartrate, short acting, (LOPRESSOR) 25 mg tablet Take 1/2 tablet by mouth every 12 hours. New lower dose since in the hospital setting Sep 16 - Sep 18 90 tablet 3 cyanocobalamin (VITAMIN B-12) 1,000 mcg tab Take 1,000 mcg by mouth once daily. atorvastatin (LIPITOR) 40 mg tablet Take 0.5 tablets by mouth once daily. New lower dose as of 2021 90 tablet 3 levothyroxine (SYNTHROID) 112 mcg tablet Take 1 tablet by mouth once daily. 90 tablet 3 ferrous sulfate 325 mg (65 mg iron) tablet Take 325 mg by mouth three times daily with meals. polyethylene glycol 3350 (MIRALAX, GLYCOLAX) 17 gram packet Take 17 g by mouth once daily as neededfor constipation. Dissolve dose in 4 - 8 ounces of liquid and take as directed. 1/2 capful every other day aspirin, enteric coated (ASPIRIN, ENTERIC COATED) 81 mg EC tablet Take 81 mg by mouth once daily. cholecalciferol (VITAMIN D3) 1,000 unit tab tablet Take 1,000 Units by mouth once daily. MULTIVITAMIN TABLET Take 1 tablet by mouth once daily. 0 No current facility-administered medications for this visit. ALLERGIES Allergen Reactions Simvastatin Other: See Comments Elevated CK FAMILY HISTORY Problem Relation Age of Onset Heart Mother Heart Father CHF Colon Cancer No Family History Prostate Cancer No Family History Blood Clots No Family History NO PE OR DVT Social History Tobacco Use Smoking status: Former Types: Cigarettes Quit date: 08/11/1989 Years since quittin.5 Smokeless tobacco: Never Tobacco comments: quit 18-19 years ago Vaping Use Vaping Use: Never used Substance Use Topics Alcohol use: Yes Alcohol/week: 12.5 standard drinks Types: 2 Glasses of Wine (5oz), 2 Cans of Beer (12oz), 1 Mixed Drinks per week Comment: 1-2 beers per week Drug use: No Review of Systems: A complete ROS was obtained and is otherwise neg except as noted in HPI Physical Exam: BP 131/57 Pulse 80 Temp (Src) 97 (Tympanic) Wt 173 lb 3.2 oz (78.6kg) SpO2 98% ECOG PS: 2 General: Aox3, NAD HEENT: EOMI, PERRLA, sclera anicteric, MMM Neck: Supple, no thyroid nodules, no JVD, no adenopathy Chest: CTAB w/o w/r/r Heart: RRR w/o m/r/g. Abdomen: Soft, nontender, nondistended, bowel sounds present, no organomegaly or mass Extremities: No edema, no erythema 2+ DP Pulses Neurological: CN2-12 grossly intact Skin: Warm and dry with no rashes or ulcerations. Nodes: No palpable adenopathy in the cervical, supraclavicular, infraclavicular, or axillary regions. Hematologic: no bruising or petechiae. Psychiatric: Alert and oriented x3 No change Labs Recent Labs 02/04/23 1046 WBC 2.55* HB 9.2* HCT 28.7* PLT 173 NA 141 K 4.4 CHLOR 104 CO2 31 CREAT 1.15 BUN 23 GLUC 109* TPROT 6.0* ALB 3.7 CA 8.7 ALKPHOS 68 TBILI 1.0 AST 22 ALT 27 Radiology: Pathology: Addendum Cytogenetics (see separate report) revealed a normal male karyotype: 46,XY[20]. The myeloid NGS panel (see separate report) identified the following variants (with VAFs): SF3B1 p.H662Q (41.7%) and TET2 p.[id number]*6 (46%). 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 The threshold for absolute monocytosis in CMML has since been lowered to 0.5 k/uL (from 1.0 k/uL in the 2016 WHO), which accounts for the discrepancy. Further, the category of CMML-0 (which this neoplasm would have otherwise been classified as) has been eliminated by both classification systems in lieu of a two-tiered blast-basedgrading scheme (of CMML-1 and -2 only). The patient had a single CBC since 2019 (specifically 08/24/2022) in which there was not a relative monocytosis; this is attributable to transiently increased n eutrophils in the setting of acute stroke/ischemia, and is here regarded as an outlier. Addendum electronically signed by Nnamdi Hernandez MD on 11/12/2022 at 3:48 PM FINAL DIAGNOSIS A-C. 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 Diagnosis Comment The bone marrow is mildly hypercellular for age (overall approximately 30%). Blasts are not increased. There is dyserythropoiesis with increased ring sideroblasts (exceeding 50% of erythroid forms), along with morphologic changes as described below. There is also mild dysmegakaryopoiesis with a subset of forms with nuclear lobes. 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 Cytogenetics and myeloid NGS are currently pending and results will be reported separately and in an addendum (along with final classification) when available. The case was reviewed by Dr. Tigist Mcqueen, who agrees with this assessment. Assessment and Plan: Srini Luis is a 86 year old male w/ PMHx macrocytic anemia, CAD s/p 4V CABG, CVA, pAfib, HTN, hypothyroidism, heart block s/p pacemaker who presents macrocytic anemia # CMML1 - While initially given the significant dysplasia and ringed sideroblasts with TET2 and SF3B1 was felt to be due to MDS, in full review of his prior CBCs, and with the new classification of CMML-1 which lowered the absolute monocytosis down to 0.5 from 1.0, this now is classified as CMML1 - Discussed with patient updated diagnosis due to new classification from WHO - Discussed CMML1 is different from MDS with overlap disease and is higher risk for progression to AML. CMML1 has ~25% risk of transformation over 1 year with median PFS of 16 months - Discussed due to this we typically treated with HMA (aza or dec) at 5-7 days q28 days though can stretch to q6 or even q8 weeks. - goal of treatment would be to extend time til progression of AML - Discussed this is incurable without an allo SCT of which he is not a candidate for - Started Aza. 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 - cont to monitor # Neutropenia - 2/2 chemotherapy - cont to monitor Randa Rowell DO Hematology/Oncology [facility] [place] Medical Decision Making: Problems: High: Illness/injury w/ threat to life/body function Risk: High: Drug therapy requiring intensive monitoring Medical Decision Making Level: 5 - High [facility] History of Past illness Narrative* Problem Noted Date Resolved Date 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 of ant icoagulants with INR goal of 2.0-3.0 01/05/2023 01/05/2023 CHB (complete heart block) 09/17/202209/18 Overview: 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; Confirmed Blk below His by His Bundle Electrogram Symptomatic bradycardia 09/15/2022 09/18/20 CHF (congestive heart failur e), NYHA class I, acute on chronic, diastolic 07/04/2022 08/26/2022 Xerosis cutis 12/14/2012 01/02/2015 Pruritus 12/14/2012 01/02/2015 Actinic skin damage 12/14/2012 01/02/2015 Solar lentigo 12/14/2012 01/02/2015 Myasthenia gravis 04/19/2012 09/15/2022 Viral warts, unspecified 09/29/2010 015 Irritated//Inflamed Seborrheic Keratosis 010 01/02/2015 Follow-up examination, following unspecified dheeraj diane 06/11/2009 08/14/2009 ACTINIC DAMAGE///SOLAR SKIN DAMAGE NOS 8 01/02/2015 Dermatitis due to cosmetics 04/07/200812/11 ACTINIC DAMAGE///CHR SOLAR SKIN DAMAGE NOS 04/0701/02/2015 Other seborrheic keratosis 04/07/200801/02 SOLAR LENTIGINES///DYSCHROMIA OTHER 04/07/2008 01/02/2015 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 01/02/2015 Special screening for malignant neoplasms, colon 08/11/2005 01/02/2015 Follow-up examination following surgery 10/31/2001/02/2015 USP current use of ant icoagulants with INR goal of 2.0-3.0 09/15/2022 Nocturnal hypoxemia 08/29/2022 Overview: On oxygen at night documented as of this encounter (statuses as of 02/04/2023) [facility] History of Present illness Narrative* Israel Pruitt DO - 02/02/2023 3:46 PM EDT Again a message that is confusing to patient and myself as to the reason for the message Please let me know who is generating calls out to our patients and why The patient is closely monitored and closely watched by physicians that are multidisciplinary Seems that there is nothing for me to do here Please discuss in Huddle in the next few days to understand where this is coming from for the future Thanks , Israel Pruitt DO * Eveline Dean RN - 02/02/2023 1:15 PM EDT INSIGHT CDM TELEPHONIC OUTREACH Provider Action/FYI: No CDM concerns at this time. Denies any new or worsening symptoms. No questions/concerns/needs at this time. He has signed up with [facility]. He feels they will come when he needs but he can still keep Dr Pruitt. States they didn't say I couldn't keep my PCP he did use them recently for constipation and feels it is a great service Contact made with patient: Yes Patient identified by name and . Discussed care with patient It s nice talking to you again. As a reminder, this is our bi-weekly check-in where I will be asking you questions about your health. This will only take a few minutes of your time. Is this a good time? Yes Symptoms What Chronic Disease(s) does the patient have: CHF Do you check your blood pressures at home? No Do you have new or worse shortness of breath with activity? No Do you feel like you are dehydrated for any reason, including not being able to eat or drink normally, or having less urine/much darker urine than normal for you? No Do you check your daily weight at home? Yes, Have you noticed a sudden gain in weight greater than three pounds in a day or three pounds in a week? No Are you having any other symptoms that your PCP needs to know about? No Symptoms: Symptom Escalation MARCELO Education Ordered -: No The patient required an escalation for symptom(s)? No Medications Do you have any questions about taking your medication or which medications you should be on? No Do you need any medication refills at this time, including any of the medications you might take only when needed? No Social We would like to make sure you have what you need so that your basic needs are met- including your personal safety, food, housing, transportation and medications? Would you like to speak with a social work warehouse team member to help give you support for any of these needs? No It can be normal to feel anxious or down during a time like this. Would you like to talk to a mental health professional about how you have been feeling? No Closing Thank you for taking the time to talk with me today. We want to work with you to ensure that we arekeeping your medical condition(s) well-controlled and to keep you healthy and out of the doctor's office or hospital. It s also not too late for me to sign you up for automated weekly questionnaires through [employer]. This is an easy way for us to stay connected each week. Are you interested? No, I understand. We can always sign you up in the future if you change your mind. Just as a reminder, will continue to call you every other week to check in on your health. Our calls should take 10-15 minutes or less. Remember, if you have concerns in between our calls, please call your PCP's office right away. Thank you. Enter next patient outreach date for two weeks on the same day of the week as today in the Track PtOutreach and End outreach. * Eveline Dean RN - 01/30/2023 4:22 PM EDT INSIGHT CDM TELEPHONIC OUTREACH Provider Action/FYI: Contact made with patient: No - Left message Helbandar my name is Eveline Dean RN your Ab Init[employer] Etl Developer [facility] the [facility] I am calling today for your bi-weekly check in. I am sorry I missed your call. I will reach out to you again tomorrow. (if the third call I will reach out to you again next week) Enter next patient outreach date for the following day using the Track Pt Outreach. End outreach. 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 of ant icoagulants with INR goal of 2.0-3.0 01/05/2023 01/05/2023 CHB (complete heart block) 09/17/202209/18 Overview: 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; Confirmed Blk below His by His Bundle Electrogram Symptomatic bradycardia 09/15/2022 09/18/20 CHF (congestive heart failur e), NYHA class I, acute on chronic, diastolic 07/04/2022 08/26/2022 Xerosis cutis 12/14/2012 01/02/2015 Pruritus 12/14/2012 01/02/2015 Actinic skin damage 12/14/2012 01/02/2015 Solar lentigo 12/14/2012 01/02/2015 Myasthenia gravis 04/19/2012 09/15/2022 Viral warts, unspecified 09/29/2010 015 Irritated//Inflamed Seborrheic Keratosis 010 01/02/2015 Follow-up examination, following unspecified dheeraj diane 06/11/2009 08/14/2009 ACTINIC DAMAGE///SOLAR SKIN DAMAGE NOS 8 01/02/2015 Dermatitis due to cosmetics 04/07/200812/11 ACTINIC DAMAGE///CHR SOLAR SKIN DAMAGE NOS 04/0701/02/2015 Other seborrheic keratosis 04/07/200801/02 SOLAR LENTIGINES///DYSCHROMIA OTHER 04/07/2008 01/02/2015 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 01/02/2015 Special screening for malignant neoplasms, colon 08/11/2005 01/02/2015 Follow-up examination following surgery 10/31/20 03 01/02/2015 USP current use of ant icoagulants with INR goal of 2.0-3.0 09/15/2022 Nocturnal hypoxemia 08/29/2022 Overview: On oxygen at night documented as of this encounter (statuses as of 02/02/2023) [facility] History of Past illness Narrative* Problem Noted Date Resolved Date USP current use of ant icoagulants with INR goal of 2.0-3.0 01/05/2023 01/05/2023 CHB (complete heart block) 09/17/202209/18 Overview: 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; Confirmed Blk below His by His Bundle Electrogram Symptomatic bradycardia 09/15/2022 09/18/20 CHF (congestive heart failur e), NYHA class I, acute on chronic, diastolic 07/04/2022 08/26/2022 Xerosis cutis 12/14/2012 01/02/2015 Pruritus 12/14/2012 01/02/2015 Actinic skin damage 12/14/2012 01/02/2015 Solar lentigo 12/14/2012 01/02/2015 Myasthenia gravis 04/19/2012 09/15/2022 Viral warts, unspecified 09/29/2010 015 Irritated//Inflamed Seborrheic Keratosis 010 01/02/2015 Follow-up examination, following unspecified dheeraj diane 06/11/2009 08/14/2009 ACTINIC DAMAGE///SOLAR SKIN DAMAGE NOS 8 01/02/2015 Dermatitis due to cosmetics 04/07/200812/11 ACTINIC DAMAGE///CHR SOLAR SKIN DAMAGE NOS 04/0701/02/2015 Other seborrheic keratosis 04/07/200801/02 SOLAR LENTIGINES///DYSCHROMIA OTHER 04/07/2008 01/02/2015 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 01/02/2015 Special screening for malignant neoplasms, colon 08/11/2005 01/02/2015 Follow-up examination following surgery 10/31/20 03 01/02/2015 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 of ant icoagulants with INR goal of 2.0-3.0 09/15/2022 Nocturnal hypoxemia 08/29/2022 Overview: On oxygen at night documented as of this encounter (statuses as of 01/25/2023) [facility] History of Past illness Narrative* Problem Noted Date Resolved Date USP current use of ant icoagulants with INR goal of 2.0-3.0 01/05/2023 01/05/2023 CHB (complete heart block) 09/17/202209/18 Overview: 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; Confirmed Blk below His by His Bundle Electrogram Symptomatic bradycardia 09/15/2022 09/18/20 CHF (congestive heart failur e), NYHA class I, acute on chronic, diastolic 07/04/2022 08/26/2022 Xerosis cutis 12/14/2012 01/02/2015 Pruritus 12/14/2012 01/02/2015 Actinic skin damage 12/14/2012 01/02/2015 Solar lentigo 12/14/2012 01/02/2015 Myasthenia gravis 04/19/2012 09/15/2022 Viral warts, unspecified 09/29/2010 015 Irritated//Inflamed Seborrheic Keratosis 010 01/02/2015 Follow-up examination, following unspecified dheeraj diane 06/11/2009 08/14/2009 ACTINIC DAMAGE///SOLAR SKIN DAMAGE NOS 8 01/02/2015 Dermatitis due to cosmetics 04/07/200812/11 ACTINIC DAMAGE///CHR SOLAR SKIN DAMAGE NOS 04/0701/02/2015 Other seborrheic keratosis 04/07/200801/02 SOLAR LENTIGINES///DYSCHROMIA OTHER 04/07/2008 01/02/2015 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 01/02/2015 Special screening for malignant neoplasms, colon 08/11/2005 01/02/2015 Follow-up examination following surgery 10/31/20 03 01/02/2015 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 of ant icoagulants with INR goal of 2.0-3.0 09/15/2022 Nocturnal hypoxemia 08/29/2022 Overview: On oxygen at night documented as of this encounter (statuses as of 01/19/2023) [facility] History of Past illness Narrative* Problem Noted Date Resolved Date USP current use of ant icoagulants with INR goal of 2.0-3.0 01/05/2023 01/05/2023 CHB (complete heart block) 09/17/202209/18 Overview: 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; Confirmed Blk below His by His Bundle Electrogram Symptomatic bradycardia 09/15/2022 09/18/20 CHF (congestive heart failur e), NYHA class I, acute on chronic, diastolic 07/04/2022 08/26/2022 Xerosis cutis 12/14/2012 01/02/2015 Pruritus 12/14/2012 01/02/2015 Actinic skin damage 12/14/2012 01/02/2015 Solar lentigo 12/14/2012 01/02/2015 Myasthenia gravis 04/19/2012 09/15/2022 Viral warts, unspecified 09/29/2010 015 Irritated//Inflamed Seborrheic Keratosis 010 01/02/2015 Follow-up examination, following unspecified dheeraj diane 06/11/2009 08/14/2009 ACTINIC DAMAGE///SOLAR SKIN DAMAGE NOS 8 01/02/2015 Dermatitis due to cosmetics 04/07/200812/11 ACTINIC DAMAGE///CHR SOLAR SKIN DAMAGE NOS 04/0701/02/2015 Other seborrheic keratosis 04/07/200801/02 SOLAR LENTIGINES///DYSCHROMIA OTHER 04/07/2008 01/02/2015 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 01/02/2015 Special screening for malignant neoplasms, colon 08/11/2005 01/02/2015 Follow-up examination following surgery 10/31/20 03 01/02/2015 USP current use of ant icoagulants with INR goal of 2.0-3.0 09/15/2022 Nocturnal hypoxemia 08/29/2022 Overview: On oxygen at night documented as of this encounter (statuses as of 01/16/2023) [facility] History of Past illness Narrative* Problem Noted Date Resolved Date USP current use of ant icoagulants with INR goal of 2.0-3.0 01/05/2023 01/05/2023 CHB (complete heart block) 09/17/202209/18 Overview: 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; Confirmed Blk below His by His Bundle Electrogram Symptomatic bradycardia 09/15/2022 09/18/20 CHF (congestive heart failur e), NYHA class I, acute on chronic, diastolic 07/04/2022 08/26/2022 Xerosis cutis 12/14/2012 01/02/2015 Pruritus 12/14/2012 01/02/2015 Actinic skin damage 12/14/2012 01/02/2015 Solar lentigo 12/14/2012 01/02/2015 Myasthenia gravis 04/19/2012 09/15/2022 Viral warts, unspecified 09/29/2010 015 Irritated//Inflamed Seborrheic Keratosis 010 01/02/2015 Follow-up examination, following unspecified dheearj diane 06/11/2009 08/14/2009 ACTINIC DAMAGE///SOLAR SKIN DAMAGE NOS 8 01/02/2015 Dermatitis due to cosmetics 04/07/200812/11 ACTINIC DAMAGE///CHR SOLAR SKIN DAMAGE NOS 04/0701/02/2015 Other seborrheic keratosis 04/07/200801/02 SOLAR LENTIGINES///DYSCHROMIA OTHER 04/07/2008 01/02/2015 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 01/02/2015 Special screening for malignant neoplasms, colon 08/11/2005 01/02/2015 Follow-up examination following surgery 10/31/2001/02/2015 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03-08-2023 History of Present illness Narrative* Randa Rowell DO - 01/14/2023 9:02 AM EST HEMATOLOGY/ONCOLOGY Follow up Srini Luis 1935 October 09, 2022 Referred by: SELF Diagnosis: CMML-1 Date of Diagnosis: 10/24/22 Current Treatment: Aza C1D1 12/15/22-present CC: follow up CMML HPI: Srini Luis is a 86 year old male w/ PMHx macrocytic anemia, CAD s/p 4V CABG, CVA, pAfib, HTN, hypothyroidism, heart block s/p pacemaker who presents macrocytic anemia. In review of his records, he does have a hx of B12 deficiency back in 2019, which appears to be whgen his anemia began. He has since progressively been more anemic. During this time he has also had significant cardiac diseases requiring treatment. He remains on MVI currently, even with supplementation of b12 he remains siognificantly macrocytic. No significant other cytopenias. No night sweats, no abnormal weight changes or weight loss. Interval Hx: Since last being seen, Mr. Luis presents for C2D3 of aza. He reports overall treatment is going well. Denied N/V/F/C/SOB/CP/abd pain. Intermittent constipation and diarrhea. No recurrent infections. Fatigue is stable 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; Confirmed Blk below His by His Bundle Electrogram CVA (cerebral vascular accident) ([facility]) 08/22/2022 Diverticulosis History of anemia Hx of CABG 07/22/2021 4 vessel CABG with ORNELAS-LAD, SVG-RI, SVG-OM, and SVG-RCA in [place] Hx of colonoscopy 09/27/2015 no reported polyps per patient recollection Hypertension Hypothyroidism 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 2017 when he's been off medication Nocturnal hypoxemia On oxygen at night Osteoarthritis, generalized Pacemaker 09/17/2022 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 PAF (paroxysmal atrial fibrillation) ([facility]) 2020 Post CABG atrial fibrillation PVC's (premature ventricular contractions) RBBB Status post ligation of left atrial appendage 07/2021 At time of CABG PAST SURGICAL HISTORY Procedure Laterality Date ANKLE RIGHT OP SURGERY Right 12/18/2020 Dr Arreola [facility] ARTHROPLASTY TOTAL SHOULDER 11/09/2008 right ARTHROSCOPY OF JOINT UNLISTED Elbow right CABG (4) VEIN GRAFTS & ARTERIAL GRAFT(S) 07/21/2021 In [facility] COLONOSCOPY FLX DX W/COLLJ SPEC WHEN PFRMD 09/01/2005 Colonoscopy COLONOSCOPY FLX DX W/COLLJ SPEC WHEN PFRMD 09/27/2015 Colonoscopy PAST SURGICAL HISTORY OF 07/21/2021 Coronary Artery Bypass Graft x 4 REMOVAL OF TONSILS,<12 Y/O S $ DUAL CHMBR PACER [id number] Left 09/17/2022 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 Current Outpatient Medications Medication Sig Dispense Refill furosemide (LASIX) 20 mg tablet Take 1 tablet by mouth as directed. Take 20 mg p.o. twice daily, 20mg as needed for 3-7 days with increased edema then back to 20 mg twice daily nitroglycerin sublingual (NITROQUICK) 0.4 mg SL tablet nitroglycerin 0.4 mg sublingual tablet ondansetron (ZOFRAN) 8 mg tablet Take 1 tablet by mouth every 8 hours as needed. 30 tablet 5 lidocaine-prilocaine (EMLA) 2.5-2.5 % cream Apply to port site about 45 mintues prior to treatment and cover 30 g 3 prochlorperazine (COMPAZINE) 10 mg tablet Take 1 tablet by mouth every 6 hours as needed. 30 tablet3 rivaroxaban (XARELTO) 20 mg tablet Take 1 tablet by mouth daily with dinner. Resume Sep 20 2022 90 tablet 3 metoprolol tartrate, short acting, (LOPRESSOR) 25 mg tablet Take 1/2 tablet by mouth every 12 hours. New lower dose since in the hospital setting Sep 16 - Sep 18 90 tablet 3 cyanocobalamin (VITAMIN B-12) 1,000 mcg tab Take 1,000 mcg by mouth once daily. atorvastatin (LIPITOR) 40 mg tablet Take 0.5 tablets by mouth once daily. New lower dose as of 2021 90 tablet 3 levothyroxine (SYNTHROID) 112 mcg tablet Take 1 tablet by mouth once daily. 90 tablet 3 ferrous sulfate 325 mg (65 mg iron) tablet Take 325 mg by mouth three times daily with meals. polyethylene glycol 3350 (MIRALAX, GLYCOLAX) 17 gram packet Take 17 g by mouth once daily as neededfor constipation. Dissolve dose in 4 - 8 ounces of liquid and take as directed. 1/2 capful every other day aspirin, enteric coated (ASPIRIN, ENTERIC COATED) 81 mg EC tablet Take 81 mg by mouth once daily. cholecalciferol (VITAMIN D3) 1,000 unit tab tablet Take 1,000 Units by mouth once daily. MULTIVITAMIN TABLET Take 1 tablet by mouth once daily. 0 No current facility-administered medications for this visit. Facility-Administered Medications Ordered in Other Visits Medication Dose Route Frequency Provider Last Rate Last Admin azaCITIDine 146.25 mg in NaCl 0.9% 124.625 mL (VIDAZA) 75 mg/m2 (Treatment Plan Recorded) INTRAVENOUS ONCE Nettie Marsh MD NaCl 0.9% iv infusion 500-999 mL/hr INTRAVENOUS PRN Nettie Marsh MD diphenhydrAMINE 50 mg injection (BENADRYL) 50 mg INTRAVENOUS PRN Nettie Marsh MD hydrocortisone sodium succinate (PF) 100 mg injection (Solu-CORTEF) 100 mg INTRAVENOUS PRN Nettie Marsh MD EPINEPHrine 1 mg/mL (1 mL) 0.3 mg injection 0.3 mg INTRAMUSCULAR PRN Nettie Marsh MD sodium chloride 0.9 % (flush) 10-20 mL (BD POSIFLUSH) 10-20 mL INTRAVENOUS PRN Nettie Marsh MD heparin 100 unit/mL 500 Units injection 5 mL INTRAVENOUS DIRECTED PRN Nettie Marsh MD ALLERGIES Allergen Reactions Simvastatin Other: See Comments Elevated CK FAMILY HISTORY Problem Relation Age of Onset Heart Mother Heart Father CHF Colon Cancer No Family History Prostate Cancer No Family History Blood Clots No Family History NO PE OR DVT Social History Tobacco Use Smoking status: Former Types: Cigarettes Quit date: 08/11/1989 Years since quittin.4 Smokeless tobacco: Never Tobacco comments: quit 18-19 years ago Vaping Use Vaping Use: Never used Substance Use Topics Alcohol use: Yes Alcohol/week: 12.5 standard drinks Types: 2 Glasses of Wine (5oz), 2 Cans of Beer (12oz), 1 Mixed Drinks per week Comment: 1-2 beers per week Drug use: No Review of Systems: A complete ROS was obtained and is otherwise neg except as noted in HPI Physical Exam: There were no vitals taken for this visit. ECOG PS: 2 General: Aox3, NAD HEENT: EOMI, PERRLA, sclera anicteric, MMM Neck: Supple, no thyroid nodules, no JVD, no adenopathy Chest: CTAB w/o w/r/r Heart: RRR w/o m/r/g. Abdomen: Soft, nontender, nondistended, bowel sounds present, no organomegaly or mass Extremities: No edema, no erythema 2+ DP Pulses Neurological: CN2-12 grossly intact Skin: Warm and dry with no rashes or ulcerations. Nodes: No palpable adenopathy in the cervical, supraclavicular, infraclavicular, or axillary regions. Hematologic: no bruising or petechiae. Psychiatric: Alert and oriented x3 No change Labs Infusion Center on 01/12/2023 Component Date Value Ref Range Status WBC 01/12/2023 1.74 (A) 3.70 - 11.00 k/uL Final RBC 01/12/2023 2.00 (A) 4.20 - 6.00 m/uL Final Hemoglobin 01/12/2023 7.8 (A) 13.0 - 17.0 g/dL Final Hematocrit 01/12/2023 24.2 (A) 39.0 - 51.0 % Final MCV 01/12/2023 121.0 (A) 80.0 - 100.0 fL Final MCH 01/12/2023 39.0 (A) 26.0 - 34.0 pg Final MCHC 01/12/2023 32.2 30.5 - 36.0 g/dL Final RDW-CV 01/12/2023 19.5 (A) 11.5 - 15.0 % Final Platelet Count 01/12/2023 633 (A) 150 - 400 k/uL Final MPV 01/12/2023 10.3 9.0 - 12.7 fL Final Neutrophils % 01/12/2023 48.9 % Final Abs Neut 01/12/2023 0.85 (A) 1.45 - 7.50 k/uL Final Lymphocytes % 01/12/2023 37.4 % Final Abs Lymph 01/12/2023 0.65 (A) 1.00 - 4.00 k/uL Final Monocytes % 01/12/2023 8.0 % Final Abs Weld 01/12/2023 0.14 <0.87 k/uL Final Eosinophils % 01/12/2023 1.1 % Final Abs Eosin 01/12/2023 <0.03 <0.46 k/uL Final Basophils % 01/12/2023 4.6 % Final Abs Baso 01/12/2023 0.08 <0.11 k/uL Final Immature Granulocytes % 01/12/2023 0.0 % Final Abs Immature Gran 01/12/2023 <0.03 <0.10 k/uL Final Platelet Estimate 01/12/2023 Increased Final Giant Platelets 01/12/2023 Occasional Final Red Cell Morph 01/12/2023 Reviewed: see results of individual morphologies Final Polychromasia 01/12/2023 Slight Final Anisocytosis 01/12/2023 Present Final RBC Fragments 01/12/2023 Few (A) None Seen Final Diff Type 01/12/2023 Auto Final Protein, Total 01/12/2023 5.6 (A) 6.4 - 8.9 g/dL Final Albumin 01/12/2023 3.6 3.5 - 5.7 g/dL Final Calcium, Total 01/12/2023 8.5 (A) 8.6 - 10.3 mg/dL Final Bilirubin, Total 01/12/2023 0.9 0.3 - 1.0 mg/dL Final Alkaline Phosphatase 01/12/2023 60 34 - 104 U/L Final AST 01/12/2023 20 13 - 39 U/L Final ALT 01/12/2023 19 7 - 52 U/L Final Glucose 01/12/2023 131 (A) 74 - 99 mg/dL Final BUN 01/12/2023 30 (A) 7 - 25 mg/dL Final Creatinine 01/12/2023 1.12 0.60 - 1.30 mg/dL Final Sodium 01/12/2023 139 136 - 144 mmol/L Final Potassium 01/12/2023 3.9 3.6 - 5.1 mmol/L Final Chloride 01/12/2023 103 101 - 111 mmol/L Final CO2 01/12/2023 34 (A) 21 - 31 mmol/L Final Anion Gap 01/12/2023 2 (A) 9 - 18 mmol/L Final Estimated Glomerular Filtration Ra* 01/12/2023 64 >=60 mL/min/1.73m Final Results Only on 01/08/2023 Component Date Value Ref Range Status Deflector Operator 01/08/2023 In process Value:Provider EDMOND your patient SRINI LUIS has been assigned their Marcelo program. The date to complete this order is 02-07-2023 The Marcelo program is: HEART FAILURE: WHAT IT IS The patient access code to view the Marcelo program is: [id number] To view the Marcelo program go to: [email or web address] Radiology: Pathology: Addendum Cytogenetics (see separate report) revealed a normal male karyotype: 46,XY[20]. The myeloid NGS panel (see separate report) identified the following variants (with VAFs): SF3B1 p.[id number] (41.7%) and TET2 p.[id number]*6 (46%). 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 The threshold for absolute monocytosis in CMML has since been lowered to 0.5 k/uL (from 1.0 k/uL in the 2016 WHO), which accounts for the discrepancy. Further, the category of CMML-0 (which this neoplasm would have otherwise been classified as) has been eliminated by both classification systems in lieu of a two-tiered blast-basedgrading scheme (of CMML-1 and -2 only). The patient had a single CBC since 2019 (specifically 08/24/2022) in which there was not a relative monocytosis; this is attributable to transiently increased n eutrophils in the setting of acute stroke/ischemia, and is here regarded as an outlier. Addendum electronically signed by Nnamdi Hernandez MD on 11/12/2022 at 3:48 PM FINAL DIAGNOSIS A-C. 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 Diagnosis Comment The bone marrow is mildly hypercellular for age (overall approximately 30%). Blasts are not increased. There is dyserythropoiesis with increased ring sideroblasts (exceeding 50% of erythroid forms), along with morphologic changes as described below. There is also mild dysmegakaryopoiesis with a subset of forms with nuclear lobes. 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 Cytogenetics and myeloid NGS are currently pending and results will be reported separately and in an addendum (along with final classification) when available. The case was reviewed by Dr. Tigist Mcqueen, who agrees with this assessment. Assessment and Plan: Srini Luis is a 86 year old male w/ PMHx macrocytic anemia, CAD s/p 4V CABG, CVA, pAfib, HTN, hypothyroidism, heart block s/p pacemaker who presents macrocytic anemia # CMML1 - While initially given the significant dysplasia and ringed sideroblasts with TET2 and SF3B1 was felt to be due to MDS, in full review of his prior CBCs, and with the new classification of CMML-1 which lowered the absolute monocytosis down to 0.5 from 1.0, this now is classified as CMML1 - Discussed with patient updated diagnosis due to new classification from WHO - Discussed CMML1 is different from MDS with overlap disease and is higher risk for progression to AML. CMML1 has ~25% risk of transformation over 1 year with median PFS of 16 months - Discussed due to this we typically treated with HMA (aza or dec) at 5-7 days q28 days though can stretch to q6 or even q8 weeks. - goal of treatment would be to extend time til progression of AML - Discussed this is incurable without an allo SCT of which he is not a candidate for - Started Aza. Continue with C2D3 - Discussed definitive way to look at progress is via BMBx, however, given he is not a SCT candidate. Reasonable to watch his counts peripherally. Monocytosis has come down from from 15% (1000) down to 8% (140). 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 - cont to monitor Randa Rowell DO Hematology/Oncology [facility] Medical Decision Making: Problems: High: Illness/injury w/ threat to life/body function Risk: High: Drug therapy requiring intensive monitoring Medical Decision Making Level: 5 - High documented in this encounter[facility] History of Past illness Narrative* Problem Noted Date Resolved Date USP current use of ant icoagulants with INR goal of 2.0-3.0 01/05/2023 01/05/2023 CHB (complete heart block) 09/17/202209/18 Overview: 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; Confirmed Blk below His by His Bundle Electrogram Symptomatic bradycardia 09/15/2022 09/18/20 CHF (congestive heart failur e), NYHA class I, acute on chronic, diastolic 07/04/2022 08/26/2022 Xerosis cutis 12/14/2012 01/02/2015 Pruritus 12/14/2012 01/02/2015 Actinic skin damage 12/14/2012 01/02/2015 Solar lentigo 12/14/2012 01/02/2015 Myasthenia gravis 04/19/2012 09/15/2022 Viral warts, unspecified 09/29/2010 015 Irritated//Inflamed Seborrheic Keratosis 010 01/02/2015 Follow-up examination, following unspecified dheeraj diane 06/11/2009 08/14/2009 ACTINIC DAMAGE///SOLAR SKIN DAMAGE NOS 8 01/02/2015 Dermatitis due to cosmetics 04/07/200812/11 ACTINIC DAMAGE///CHR SOLAR SKIN DAMAGE NOS 04/0701/02/2015 Other seborrheic keratosis 04/07/200801/02 SOLAR LENTIGINES///DYSCHROMIA OTHER 04/07/2008 01/02/2015 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 01/02/2015 Special screening for malignant neoplasms, colon 08/11/2005 01/02/2015 Follow-up examination following surgery 10/31/20 03 01/02/2015 USP current use of ant icoagulants with INR goal of 2.0-3.0 09/15/2022 Nocturnal hypoxemia 08/29/2022 Overview: On oxygen at night documented as of this encounter (statuses as of 01/14/2023) [facility]03-08[facility] History of Past illness Narrative* Problem Noted Date Resolved Date USP current use of ant icoagulants with INR goal of 2.0-3.0 01/05/2023 01/05/2023 CHB (complete heart block) 09/17/202209/18 Overview: 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; Confirmed Blk below His by His Bundle Electrogram Symptomatic bradycardia 09/15/2022 09/18/20 CHF (congestive heart failur e), NYHA class I, acute on chronic, diastolic 07/04/2022 08/26/2022 Xerosis cutis 12/14/2012 01/02/2015 Pruritus 12/14/2012 01/02/2015 Actinic skin damage 12/14/2012 01/02/2015 Solar lentigo 12/14/2012 01/02/2015 Myasthenia gravis 04/19/2012 09/15/2022 Viral warts, unspecified 09/29/2010 015 Irritated//Inflamed Seborrheic Keratosis 010 01/02/2015 Follow-up examination, following unspecified dheeraj diane 06/11/2009 08/14/2009 ACTINIC DAMAGE///SOLAR SKIN DAMAGE NOS 8 01/02/2015 Dermatitis due to cosmetics 04/07/200812/11 ACTINIC DAMAGE///CHR SOLAR SKIN DAMAGE NOS 04/0701/02/2015 Other seborrheic keratosis 04/07/200801/02 SOLAR LENTIGINES///DYSCHROMIA OTHER 04/07/2008 01/02/2015 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 01/02/2015 Special screening for malignant neoplasms, colon 08/11/2005 01/02/2015 Follow-up examination following surgery 10/31/20 03 01/02/2015 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 The patient is doing reasonly well from a cardiovascular standpoint. He complains of shortness of breath with exertion. Hedoes not believe this is much different than in the past. He has significant lower extremity edema which has worsened over time. He states the edema is there even in the morning. He denies chest pain, palpitations, PND, orthopnea, syncope, or near syncope. 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 2017 when he's been off medication Nocturnal hypoxemia On oxygen at night Osteoarthritis, generalized Pacemaker 09/17/2022 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 PAF (paroxysmal atrial fibrillation) (HCC) 2020 Post CABG atrial fibrillation PVC's (premature ventricular contractions) RBBB Status post ligation of left atrial appendage 07/2021 At time of CABG PAST SURGICAL HISTORY Procedure Laterality Date ANKLE RIGHT OP SURGERY Right 12/18/2020 Dr Arreola [facility] ARTHROPLASTY TOTAL SHOULDER 11/09/2008 right ARTHROSCOPY OF JOINT UNLISTED Elbow right CABG (4) VEIN GRAFTS & ARTERIAL GRAFT(S) 07/21/2021 In [facility] COLONOSCOPY FLX DX W/COLLJ SPEC WHEN PFRMD 09/01/2005 Colonoscopy COLONOSCOPY FLX DX W/COLLJ SPEC WHEN PFRMD 09/27/2015 Colonoscopy PAST SURGICAL HISTORY OF 07/21/2021 Coronary Artery Bypass Graft x 4 REMOVAL OF TONSILS,<12 Y/O S $ DUAL CHMBR PACER [id number] Left 09/17/2022 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 FAMILY HISTORY Problem Relation Age of Onset Heart Mother Heart Father CHF Colon Cancer No Family History Prostate Cancer No Family History Blood Clots No Family History NO PE OR DVT SOCIAL HISTORY: Social History Tobacco Use Smoking status: Former Types: Cigarettes Quit date: 08/11/1989 Years since quittin.4 Smokeless tobacco: Never Tobacco comments: quit 18-19 years ago Vaping Use Vaping Use: Never used Substance Use Topics Alcohol use: Yes Alcohol/week: 12.5 standard drinks Types: 2 Glasses of Wine (5oz), 2 Cans of Beer (12oz), 1 Mixed Drinks per week Comment: 1-2 beers per week Drug use: No ALLERGIES: Simvastatin CURRENT MEDICATIONS: Current Outpatient Medications Medication Sig nitroglycerin sublingual (NITROQUICK) 0.4 mg SL tablet nitroglycerin 0.4 mg sublingual tablet ondansetron (ZOFRAN) 8 mg tablet Take 1 tablet by mouth every 8 hours as needed. lidocaine-prilocaine (EMLA) 2.5-2.5 % cream Apply to port site about 45 mintues prior to treatment and cover prochlorperazine (COMPAZINE) 10 mg tablet Take 1 tablet by mouth every 6 hours as needed. rivaroxaban (XARELTO) 20 mg tablet Take 1 tablet by mouth daily with dinner. Resume Sep 20 2022 metoprolol tartrate, short acting, (LOPRESSOR) 25 mg tablet Take 1/2 tablet by mouth every 12 hours. New lower dose since in the hospital setting Sep 16 - Sep 18 cyanocobalamin (VITAMIN B-12) 1,000 mcg tab Take 1,000 mcg by mouth once daily. furosemide (LASIX) 20 mg tablet Take 1 tablet by mouth twice daily. atorvastatin (LIPITOR) 40 mg tablet Take 0.5 tablets by mouth once daily. New lower dose as of 2021 levothyroxine (SYNTHROID) 112 mcg tablet Take 1 tablet by mouth once daily. ferrous sulfate 325 mg (65 mg iron) tablet Take 325 mg by mouth three times daily with meals. polyethylene glycol 3350 (MIRALAX, GLYCOLAX) 17 gram packet Take 17 g by mouth once daily as neededfor constipation. Dissolve dose in 4 - 8 ounces of liquid and take as directed. 1/2 capful every other day aspirin, enteric coated (ASPIRIN, ENTERIC COATED) 81 mg EC tablet Take 81 mg by mouth once daily. cholecalciferol (VITAMIN D3) 1,000 unit tab tablet Take 1,000 Units by mouth once daily. MULTIVITAMIN TABLET Take 1 tablet by mouth once daily. No current facility-administered medications for this visit. Review of Systems Constitutional: Negative for activity change and fever. Respiratory: Positive for shortness of breath. Negative for apnea, cough, chest tightness, wheezingand stridor. Cardiovascular: Positive for leg swelling. Negative for chest pain and palpitations. Gastrointestinal: Negative for abdominal distention, diarrhea and vomiting. Musculoskeletal: Negative for joint swelling, neck pain and neck stiffness. Skin: Negative for color change, pallor and rash. Neurological: Negative for dizziness, syncope, weakness, light-headedness and numbness. Hematological: Does not bruise/bleed easily. Psychiatric/Behavioral: Negative for agitation, behavioral problems and confusion. The patient is not nervous/anxious. All other systems reviewed and are negative. PHYSICAL EXAMINATION: 01/13/23 1105 BP: 110/72 Pulse: 64 Weight: 81.2 kg (179 lb) Height: 167.6 cm (5' 6) Last 3 Encounter BP Readings: Date: BP: 12/23/2022 123/74 12/22/2022 103/50 12/19/2022 123/71 Last 3 Encounter Pulse Readings: Date: Pulse: 12/23/2022 97 12/22/2022 85 12/19/2022 70 Last 3 Encounter Wt Readings: Date: Wt: 12/22/2022 77.5 kg (170 lb 12.8 oz) 12/15/2022 80.3 kg (177 lb) 12/11/2022 77.8 kg (171 lb 9.6 oz) Physical Exam Vitals and nursing note reviewed. Constitutional: General: He is not in acute distress. Appearance: Normal appearance. He is not toxic-appearing. HENT: Head: Normocephalic and atraumatic. Nose: Nose normal. Mouth/Throat: Mouth: Mucous membranes are moist. Neck: Vascular: No carotid bruit. Cardiovascular: Rate and Rhythm: Normal rate and regular rhythm. Pulses: Normal pulses. Heart sounds: Normal heart sounds. No murmur heard. No friction rub. No gallop. Pulmonary: Effort: Pulmonary effort is normal. No respiratory distress. Breath sounds: Normal breath sounds. No stridor. No wheezing, rhonchi or rales. Chest: Chest wall: No tenderness. Abdominal: General: Abdomen is flat. There is no distension. Palpations: Abdomen is soft. There is no mass. Tenderness: There is no abdominal tenderness. Musculoskeletal: General: No swelling. Cervical back: Normal range of motion. No muscular tenderness. Right lower leg: Edema present. Left lower leg: Edema present. Comments: 3+ bilateral lower extremity edema Skin: Capillary Refill: Capillary refill takes less than 2 seconds. Coloration: Skin is not jaundiced or pale. Findings: No bruising or rash. Neurological: General: No focal deficit present. Mental Status: He is alert and oriented to person, place, and time. Mental status is at baseline. Motor: No weakness. Gait: Gait normal. Psychiatric: Mood and Affect: Mood normal. Behavior: Behavior normal. Thought Content: Thought content normal. Judgment: Judgment normal. Diagnostic results: Pacemaker check: Normal device function. Normal pacing and sensing threshold. Battery: 11 yrs 5 months until [place]. Histogram: ok. Atrial episodes: 2 AFIB events, longest 4 hours, 57 minutes and 26 seconds. 0% of the time. Ventricular episodes: none. Changes: per threshold testing. ASSESSMENT/PLAN: 1. Benign hypertension - ICD9: 401.1, ICD10: I10 Target BP 130/80 or less. The pt is on chronic medications. Blood pressure well controlled on current medications. 2. 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 Patient on chronic medication. He is not complaining of chest pain. 3. Mixed hyperlipidemia - ICD9: 272.2, ICD10: E78.2 Patient is on atorvastatin 40 mg daily. Managed by primary care physician. 4. PAF (paroxysmal atrial fibrillation) ([facility]) - ICD9: 427.31, ICD10: I48.0 History of paroxysmal atrial fibrillation. Presently on metoprolol 12.5 mg twice daily. Maintainingsinus rhythm by pacemaker interrogation. We will plan to continue same medications and monitor for recurrent atrial fibrillation. 5. USP current use of anticoagulants Patient is on Xarelto 20 mg daily. The pt is not complaining of any signs and symptoms of bleeding.The patient was instructed to call with any problems. 6. Pacemaker - ICD9: V45.01, ICD10: Z95.0 The patient has a dual-chamber pacemaker. Normal function by today's interrogation. We will plan tomonitor the device by every 3-month checks and as needed. 7. CHB (complete heart block) ([facility]) - ICD9: 426.0, ICD10: I44.2 Chronic, the patient has a dual-chamber pacemaker. Stable. 8. Bilateral lower extremity edema Patient has 3+ bilateral lower extremity edema. He is on Lasix 20 mg twice daily. He was instructedto take an extra 20 mg of Lasix for 3-7 days. He should then go back to his twice a day dosing. He should let me know if his edema does not get any better. Iram Johnson APRN.OFFICE MACHINES SALES REPRESENTATIVE documented in [facility] History of Present illness Narrative* Israel Minor MD - 01/13/2023 10:38 AM EST Dual Pacer Report In Office Check Date: January 13, 2023 Time: 10:38 AM Devices: Lead Ra Lead Biotronik-09/17/2022 - Implanted Heart Model/Cat number: ADAIR Pena [id number] Serial number: [id number] Indigo Mixer: EnerTrac Lot number: LEFT AXILLARY VEIN Size: Right Atrial Pacing Lead Rv Lead Biotronik-09/17/2022 - Implanted Heart Model/Cat number: ADAIR Pena [id number] Serial number: [id number] Indigo Mixer: EnerTrac Lot number: LEFT CEPHALIC VEIN Size: Right Ventricular Pacing Lead Pacemaker Dual Pacer Biotronik-09/17/2022 - Implanted (Left) Chest Wall Model/Cat number: [id number] Serial number: [id number] Indigo Mixer: EnerTrac Lot number: INITIAL DUAL PACER IMPLANT. 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; LVEF 68%; 4V Cabg 07/22/2021; TIMMY Ligation, Post Cabg Afib; Xarelto; Symptoms: None Underlying Rhythm: Sinus Rhythm Last Interrogation Date: 09-18-2022 Estimated Remaining Longevity: 11 yrs 5 months until [place] Dependency: No Interrogation Performed by: Stephany Abraham LPN Programming Parameters Mode: DDD Lower Rate: 60 Upper Track: 140 Upper Sensor: 130 Paced AV Delay: 180 Sensed AV Delay: 140 Atrial Refractory: ind Mode Switch: 160 Additional Device Information -VS percent: 13% -PATENT AGENT percent: 83% AP-VS percent: 0% AP-PATENT AGENT percent: 3% Atrial: Threshold: 0.6 V @ 0.2 msec Programmed amp/PW: 1.0 V @ 0.75 msec P wave: 2.5 mV Sensitivity: 0.3 mV Impedance: 273 ohms Pacing percent: 3% Right Ventricle: Threshold: 0.5 V @ 0.2 msec Programmed amp/PW: 1.0 V @ 0.75 msec R wave: 9.2 mV Sensitivity: auto Impedance: 390 ohms RV pacin% Episodes: Atrial Fib count: 2 Atrial burden: 0% Mode Switch episodes: 0 Atrial ATP episode: 0 Ventricular ATP episodes: 0 Ventricular Fibrillation count: 0 Fast Ventricular Tachycardia count: 0 Slow Ventricular Tachycardia: 0 NSVT: 0 Summary: Normal device function. Normal pacing and sensing threshold. Battery: 11 yrs 5 months until [place]. Histogram: ok. Atrial episodes: 2 AFIB events, longest 4 hours, 57 minutes and 26 seconds. 0% of the time. Ventricular episodes: none. Changes: per threshold testing. Follow up: 3 month remote, 6 months device check and provider appointment. 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; Confirmed Blk below His by His Bundle Electrogram Symptomatic bradycardia 09/15/2022 09/18/20 CHF (congestive heart failur e), NYHA class I, acute on chronic, diastolic 07/04/2022 08/26/2022 Xerosis cutis 12/14/2012 01/02/2015 Pruritus 12/14/2012 01/02/2015 Actinic skin damage 12/14/2012 01/02/2015 Solar lentigo 12/14/2012 01/02/2015 Myasthenia gravis 04/19/2012 09/15/2022 Viral warts, unspecified 09/29/2010 015 Irritated//Inflamed Seborrheic Keratosis 010 01/02/2015 Follow-up examination, following unspecified dheeraj diane 06/11/2009 08/14/2009 ACTINIC DAMAGE///SOLAR SKIN DAMAGE NOS 8 01/02/2015 Dermatitis due to cosmetics 04/07/200812/11 ACTINIC DAMAGE///CHR SOLAR SKIN DAMAGE NOS 04/0701/02/2015 Other seborrheic keratosis 04/07/200801/02 SOLAR LENTIGINES///DYSCHROMIA OTHER 04/07/2008 01/02/2015 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 01/02/2015 Special screening for malignant neoplasms, colon 08/11/2005 01/02/2015 Follow-up examination following surgery 10/31/20 03 01/02/2015 USP current use of ant icoagulants with INR goal of 2.0-3.0 09/15/2022 Nocturnal hypoxemia 08/29/2022 Overview: On oxygen at night documented as of this encounter (statuses as of 01/13/2023) [facility] History of Past illness Narrative* Problem Noted Date Resolved Date 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 of ant icoagulants with INR goal of 2.0-3.0 01/05/2023 01/05/2023 CHB (complete heart block) 09/17/202209/18 Overview: 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; Confirmed Blk below His by His Bundle Electrogram Symptomatic bradycardia 09/15/2022 09/18/20 CHF (congestive heart failur e), NYHA class I, acute on chronic, diastolic 07/04/2022 08/26/2022 Xerosis cutis 12/14/2012 01/02/2015 Pruritus 12/14/2012 01/02/2015 Actinic skin damage 12/14/2012 01/02/2015 Solar lentigo 12/14/2012 01/02/2015 Myasthenia gravis 04/19/2012 09/15/2022 Viral warts, unspecified 09/29/2010 015 Irritated//Inflamed Seborrheic Keratosis 010 01/02/2015 Follow-up examination, following unspecified dheeraj diane 06/11/2009 08/14/2009 ACTINIC DAMAGE///SOLAR SKIN DAMAGE NOS 8 01/02/2015 Dermatitis due to cosmetics 04/07/200812/11 ACTINIC DAMAGE///CHR SOLAR SKIN DAMAGE NOS 04/0701/02/2015 Other seborrheic keratosis 04/07/200801/02 SOLAR LENTIGINES///DYSCHROMIA OTHER 04/07/2008 01/02/2015 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 01/02/2015 Special screening for malignant neoplasms, colon 08/11/2005 01/02/2015 Follow-up examination following surgery 10/31/20 03 01/02/2015 USP current use of ant icoagulants with INR goal of 2.0-3.0 09/15/2022 Nocturnal hypoxemia 08/29/2022 Overview: On oxygen at night documented as of this encounter (statuses as of 01/13/2023) [facility] History of Past illness Narrative* Problem Noted Date Resolved Date 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 of ant icoagulants with INR goal of 2.0-3.0 01/05/2023 01/05/2023 CHB (complete heart block) 09/17/202209/18 Overview: 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; Confirmed Blk below His by His Bundle Electrogram Symptomatic bradycardia 09/15/2022 09/18/20 CHF (congestive heart failur e), NYHA class I, acute on chronic, diastolic 07/04/2022 08/26/2022 Xerosis cutis 12/14/2012 01/02/2015 Pruritus 12/14/2012 01/02/2015 Actinic skin damage 12/14/2012 01/02/2015 Solar lentigo 12/14/2012 01/02/2015 Myasthenia gravis 04/19/2012 09/15/2022 Viral warts, unspecified 09/29/2010 015 Irritated//Inflamed Seborrheic Keratosis 010 01/02/2015 Follow-up examination, following unspecified dheeraj diane 06/11/2009 08/14/2009 ACTINIC DAMAGE///SOLAR SKIN DAMAGE NOS 8 01/02/2015 Dermatitis due to cosmetics 04/07/200812/11 ACTINIC DAMAGE///CHR SOLAR SKIN DAMAGE NOS 04/0701/02/2015 Other seborrheic keratosis 04/07/200801/02 SOLAR LENTIGINES///DYSCHROMIA OTHER 04/07/2008 01/02/2015 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 01/02/2015 Special screening for malignant neoplasms, colon 08/11/2005 01/02/2015 Follow-up examination following surgery 10/31/20 03 01/02/2015 USP current use of ant icoagulants with INR goal of 2.0-3.0 09/15/2022 Nocturnal hypoxemia 08/29/2022 Overview: On oxygen at night documented as of this encounter (statuses as of 01/12/2023) [facility] History of Present illness Narrative* Eveline Dean RN - 01/08/2023 8:56 AM EST [employer] CDM Engagement Provider Action/FYI: Would like to change to telephonic outreaches. States I feel fine Contact Made with Patient: Yes Patient identified by name and . Discussed care with patient Aylin stoddard name is Eveline Dean RN your Ab Init[employer] Etl Developer from Israel Pruitt DO office at the [facility]. I am reaching out today because I noticed it has been a few weeks since I have seen any responses from you on your questionnaire. I wanted to check on you and make sure you are doingwell, and to remind you that your Israel Pruitt DO recommended this program for you so that you can stay better connected to your health. I will be monitoring your responses on the questionnaire to make sure we are not seeing any changes in your health that your Primary Care Physician needs to know about, or looking for improvements and keeping Israel Pruitt DO informed about it all. You and I will check in together anytime a problem arises, and determine a solution. I am here to help you stay healthy, and stay connected to your doctor's office. How can I help you in this program? The patient informs that he no longer has Internet access (Consider offering telephonic outreach.) Patient agrees to telephonic outreach: Yes (Change enrollment to Telephonic under [facility] status next outreach in two (2) weeks.) Patient accepts telephonic outreach. MARCELO Education Ordered -: Yes Thank you for your time today. I am excited to work together in managing your health! I will check back within in two weeks to see how things are going. If questions or concerns arise between phone calls, please reach out to your PCP s office. 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; Confirmed Blk below His by His Bundle Electrogram Symptomatic bradycardia 09/15/2022 09/18/20 CHF (congestive heart failur e), NYHA class I, acute on chronic, diastolic 07/04/2022 08/26/2022 Xerosis cutis 12/14/2012 01/02/2015 Pruritus 12/14/2012 01/02/2015 Actinic skin damage 12/14/2012 01/02/2015 Solar lentigo 12/14/2012 01/02/2015 Myasthenia gravis 04/19/2012 09/15/2022 Viral warts, unspecified 09/29/2010 015 Irritated//Inflamed Seborrheic Keratosis 010 01/02/2015 Follow-up examination, following unspecified dheeraj diane 06/11/2009 08/14/2009 ACTINIC DAMAGE///SOLAR SKIN DAMAGE NOS 8 01/02/2015 Dermatitis due to cosmetics 04/07/200812/11 ACTINIC DAMAGE///CHR SOLAR SKIN DAMAGE NOS 04/0701/02/2015 Other seborrheic keratosis 04/07/200801/02 SOLAR LENTIGINES///DYSCHROMIA OTHER 04/07/2008 01/02/2015 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 01/02/2015 Special screening for malignant neoplasms, colon 08/11/2005 01/02/2015 Follow-up examination following surgery 10/31/20 03 01/02/2015 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 of ant icoagulants with INR goal of 2.0-3.0 09/15/2022 Nocturnal hypoxemia 08/29/2022 Overview: On oxygen at night documented as of this encounter (statuses as of 01/08/2023) [facility] History of Past illness Narrative* Problem Noted Date Resolved Date 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 of ant icoagulants with INR goal of 2.0-3.0 01/05/2023 01/05/2023 CHB (complete heart block) 09/17/202209/18 Overview: 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; Confirmed Blk below His by His Bundle Electrogram Symptomatic bradycardia 09/15/2022 09/18/20 CHF (congestive heart failur e), NYHA class I, acute on chronic, diastolic 07/04/2022 08/26/2022 Xerosis cutis 12/14/2012 01/02/2015 Pruritus 12/14/2012 01/02/2015 Actinic skin damage 12/14/2012 01/02/2015 Solar lentigo 12/14/2012 01/02/2015 Myasthenia gravis 04/19/2012 09/15/2022 Viral warts, unspecified 09/29/2010 015 Irritated//Inflamed Seborrheic Keratosis 010 01/02/2015 Follow-up examination, following unspecified dheeraj diane 06/11/2009 08/14/2009 ACTINIC DAMAGE///SOLAR SKIN DAMAGE NOS 8 01/02/2015 Dermatitis due to cosmetics 04/07/200812/11 ACTINIC DAMAGE///CHR SOLAR SKIN DAMAGE NOS 04/0701/02/2015 Other seborrheic keratosis 04/07/200801/02 SOLAR LENTIGINES///DYSCHROMIA OTHER 04/07/2008 01/02/2015 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 01/02/2015 Special screening for malignant neoplasms, colon 08/11/2005 01/02/2015 Follow-up examination following surgery 10/31/20 03 01/02/2015 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 of ant icoagulants with INR goal of 2.0-3.0 09/15/2022 Nocturnal hypoxemia 08/29/2022 Overview: On oxygen at night documented as of this encounter (statuses as of 03/21/2023) [facility] History of Past illness Narrative* Problem Noted Date Resolved Date Myasthenia gravis 01/05/2023 03/25/2023 Overview: Last seen by neurology July 29, 2017. 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; Confirmed Blk below His by His Bundle Electrogram Symptomatic bradycardia 09/15/2022 09/18/20 CHF (congestive heart failur e), NYHA class I, acute on chronic, diastolic 07/04/2022 08/26/2022 Xerosis cutis 12/14/2012 01/02/2015 Pruritus 12/14/2012 01/02/2015 Actinic skin damage 12/14/2012 01/02/2015 Solar lentigo 12/14/2012 01/02/2015 Myasthenia gravis 04/19/2012 09/15/2022 Viral warts, unspecified 09/29/2010 015 Irritated//Inflamed Seborrheic Keratosis 010 01/02/2015 Follow-up examination, following unspecified dheeraj diane 06/11/2009 08/14/2009 ACTINIC DAMAGE///SOLAR SKIN DAMAGE NOS 8 01/02/2015 Dermatitis due to cosmetics 04/07/200812/11 ACTINIC DAMAGE///CHR SOLAR SKIN DAMAGE NOS 04/0701/02/2015 Other seborrheic keratosis 04/07/200801/02 SOLAR LENTIGINES///DYSCHROMIA OTHER 04/07/2008 01/02/2015 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 01/02/2015 Special screening for malignant neoplasms, colon 08/11/2005 01/02/2015 Follow-up examination following surgery 10/31/20 03 01/02/2015 USP current use of ant icoagulants with INR goal of 2.0-3.0 09/15/2022 Nocturnal hypoxemia 08/29/2022 Overview: On oxygen at night documented as of this encounter (statuses as of 03/25/2023) [facility] of Past illness Narrative* Problem Noted Date Resolved Date Myasthenia gravis 01/05/2023 03/25/2023 Overview: Last seen by neurology July 29, 2017. 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; Confirmed Blk below His by His Bundle Electrogram Symptomatic bradycardia 09/15/2022 09/18/20 CHF (congestive heart failur e), NYHA class I, acute on chronic, diastolic 07/04/2022 08/26/2022 Xerosis cutis 12/14/2012 01/02/2015 Pruritus 12/14/2012 01/02/2015 Actinic skin damage 12/14/2012 01/02/2015 Solar lentigo 12/14/2012 01/02/2015 Myasthenia gravis 04/19/2012 09/15/2022 Viral warts, unspecified 09/29/2010 015 Irritated//Inflamed Seborrheic Keratosis 010 01/02/2015 Follow-up examination, following unspecified dheeraj diane 06/11/2009 08/14/2009 ACTINIC DAMAGE///SOLAR SKIN DAMAGE NOS 8 01/02/2015 Dermatitis due to cosmetics 04/07/200812/11 ACTINIC DAMAGE///CHR SOLAR SKIN DAMAGE NOS 04/0701/02/2015 Other seborrheic keratosis 04/07/200801/02 SOLAR LENTIGINES///DYSCHROMIA OTHER 04/07/2008 01/02/2015 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 01/02/2015 Special screening for malignant neoplasms, colon 08/11/2005 01/02/2015 Follow-up examination following surgery 10/31/20 03 01/02/2015 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 of ant icoagulants with INR goal of 2.0-3.0 09/15/2022 Nocturnal hypoxemia 08/29/2022 Overview: On oxygen at night documented as of this encounter (statuses as of 04/08/2023) [facility] History of Past illness Narrative* Problem Noted Date Resolved Date Myasthenia gravis 01/05/2023 03/25/2023 Overview: Last seen by neurology July 29, 2017. 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; Confirmed Blk below His by His Bundle Electrogram Symptomatic bradycardia 09/15/2022 09/18/20 CHF (congestive heart failur e), NYHA class I, acute on chronic, diastolic 07/04/2022 08/26/2022 Xerosis cutis 12/14/2012 01/02/2015 Pruritus 12/14/2012 01/02/2015 Actinic skin damage 12/14/2012 01/02/2015 Solar lentigo 12/14/2012 01/02/2015 Myasthenia gravis 04/19/2012 09/15/2022 Viral warts, unspecified 09/29/2010 015 Irritated//Inflamed Seborrheic Keratosis 010 01/02/2015 Follow-up examination, following unspecified dheeraj diane 06/11/2009 08/14/2009 ACTINIC DAMAGE///SOLAR SKIN DAMAGE NOS 8 01/02/2015 Dermatitis due to cosmetics 04/07/200812/11 ACTINIC DAMAGE///CHR SOLAR SKIN DAMAGE NOS 04/0701/02/2015 Other seborrheic keratosis 04/07/200801/02 SOLAR LENTIGINES///DYSCHROMIA OTHER 04/07/2008 01/02/2015 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 01/02/2015 Special screening for malignant neoplasms, colon 08/11/2005 01/02/2015 Follow-up examination following surgery 10/31/2001/02/2015 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 of ant icoagulants with INR goal of 2.0-3.0 09/15/2022 Nocturnal hypoxemia 08/29/2022 Overview: On oxygen at night documented as of this encounter (statuses as of 04/08/2023) [facility] History of Past illness Narrative* Problem Noted Date Resolved Date Myasthenia gravis 01/05/2023 03/25/2023 Overview: Last seen by neurology July 29, 2017. 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; Confirmed Blk below His by His Bundle Electrogram Symptomatic bradycardia 09/15/2022 09/18/20 CHF (congestive heart failur e), NYHA class I, acute on chronic, diastolic 07/04/2022 08/26/2022 Xerosis cutis 12/14/2012 01/02/2015 Pruritus 12/14/2012 01/02/2015 Actinic skin damage 12/14/2012 01/02/2015 Solar lentigo 12/14/2012 01/02/2015 Myasthenia gravis 04/19/2012 09/15/2022 Viral warts, unspecified 09/29/2010 015 Irritated//Inflamed Seborrheic Keratosis 010 01/02/2015 Follow-up examination, following unspecified dheeraj diane 06/11/2009 08/14/2009 ACTINIC DAMAGE///SOLAR SKIN DAMAGE NOS 8 01/02/2015 Dermatitis due to cosmetics 04/07/200812/11 ACTINIC DAMAGE///CHR SOLAR SKIN DAMAGE NOS 04/0701/02/2015 Other seborrheic keratosis 04/07/200801/02 SOLAR LENTIGINES///DYSCHROMIA OTHER 04/07/2008 01/02/2015 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 01/02/2015 Special screening for malignant neoplasms, colon 08/11/2005 01/02/2015 Follow-up examination following surgery 10/31/2001/02/2015 USP current use of ant icoagulants with INR goal of 2.0-3.0 09/15/2022 Nocturnal hypoxemia 08/29/2022 Overview: On oxygen at night documented as of this encounter (statuses as of 04/09/2023) [facility] History of Past illness Narrative* Problem Noted Date Resolved Date Myasthenia gravis 01/05/2023 03/25/2023 Overview: Last seen by neurology July 29, 2017. 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; Confirmed Blk below His by His Bundle Electrogram Symptomatic bradycardia 09/15/2022 09/18/20 CHF (congestive heart failur e), NYHA class I, acute on chronic, diastolic 07/04/2022 08/26/2022 Xerosis cutis 12/14/2012 01/02/2015 Pruritus 12/14/2012 01/02/2015 Actinic skin damage 12/14/2012 01/02/2015 Solar lentigo 12/14/2012 01/02/2015 Myasthenia gravis 04/19/2012 09/15/2022 Viral warts, unspecified 09/29/2010 015 Irritated//Inflamed Seborrheic Keratosis 010 01/02/2015 Follow-up examination, following unspecified dheeraj diane 06/11/2009 08/14/2009 ACTINIC DAMAGE///SOLAR SKIN DAMAGE NOS 8 01/02/2015 Dermatitis due to cosmetics 04/07/200812/11 ACTINIC DAMAGE///CHR SOLAR SKIN DAMAGE NOS 04/0701/02/2015 Other seborrheic keratosis 04/07/200801/02 SOLAR LENTIGINES///DYSCHROMIA OTHER 04/07/2008 01/02/2015 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 01/02/2015 Special screening for malignant neoplasms, colon 08/11/2005 01/02/2015 Follow-up examination following surgery 10/31/20 03 01/02/2015 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 of ant icoagulants with INR goal of 2.0-3.0 09/15/2022 Nocturnal hypoxemia 08/29/2022 Overview: On oxygen at night documented as of this encounter (statuses as of 04/10/2023) [facility] History of Past illness Narrative* Problem Noted Date Resolved Date Myasthenia gravis 01/05/2023 03/25/2023 Overview: Last seen by neurology July 29, 2017. 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; Confirmed Blk below His by His Bundle Electrogram Symptomatic bradycardia 09/15/2022 09/18/20 CHF (congestive heart failur e), NYHA class I, acute on chronic, diastolic 07/04/2022 08/26/2022 Xerosis cutis 12/14/2012 01/02/2015 Pruritus 12/14/2012 01/02/2015 Actinic skin damage 12/14/2012 01/02/2015 Solar lentigo 12/14/2012 01/02/2015 Myasthenia gravis 04/19/2012 09/15/2022 Viral warts, unspecified 09/29/2010 015 Irritated//Inflamed Seborrheic Keratosis 010 01/02/2015 Follow-up examination, following unspecified dheeraj diane 06/11/2009 08/14/2009 ACTINIC DAMAGE///SOLAR SKIN DAMAGE NOS 8 01/02/2015 Dermatitis due to cosmetics 04/07/200812/11 ACTINIC DAMAGE///CHR SOLAR SKIN DAMAGE NOS 04/0701/02/2015 Other seborrheic keratosis 04/07/200801/02 SOLAR LENTIGINES///DYSCHROMIA OTHER 04/07/2008 01/02/2015 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 01/02/2015 Special screening for malignant neoplasms, colon 08/11/2005 01/02/2015 Follow-up examination following surgery 10/31/20 03 01/02/2015 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 of ant icoagulants with INR goal of 2.0-3.0 09/15/2022 Nocturnal hypoxemia 08/29/2022 Overview: On oxygen at night documented as of this encounter (statuses as of 04/10/2023) [facility] History of Past illness Narrative* Problem Noted Date Resolved Date Myasthenia gravis 01/05/2023 03/25/2023 Overview: Last seen by neurology July 29, 2017. 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; Confirmed Blk below His by His Bundle Electrogram Symptomatic bradycardia 09/15/2022 09/18/20 CHF (congestive heart failur e), NYHA class I, acute on chronic, diastolic 07/04/2022 08/26/2022 Xerosis cutis 12/14/2012 01/02/2015 Pruritus 12/14/2012 01/02/2015 Actinic skin damage 12/14/2012 01/02/2015 Solar lentigo 12/14/2012 01/02/2015 Myasthenia gravis 04/19/2012 09/15/2022 Viral warts, unspecified 09/29/2010 015 Irritated//Inflamed Seborrheic Keratosis 010 01/02/2015 Follow-up examination, following unspecified dheeraj diane 06/11/2009 08/14/2009 ACTINIC DAMAGE///SOLAR SKIN DAMAGE NOS 8 01/02/2015 Dermatitis due to cosmetics 04/07/200812/11 ACTINIC DAMAGE///CHR SOLAR SKIN DAMAGE NOS 04/0701/02/2015 Other seborrheic keratosis 04/07/200801/02 SOLAR LENTIGINES///DYSCHROMIA OTHER 04/07/2008 01/02/2015 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 01/02/2015 Special screening for malignant neoplasms, colon 08/11/2005 01/02/2015 Follow-up examination following surgery 10/31/20 03 01/02/2015 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; Confirmed Blk below His by His Bundle Electrogram Symptomatic bradycardia 09/15/2022 09/18/20 CHF (congestive heart failur e), NYHA class I, acute on chronic, diastolic 07/04/2022 08/26/2022 Xerosis cutis 12/14/2012 01/02/2015 Pruritus 12/14/2012 01/02/2015 Actinic skin damage 12/14/2012 01/02/2015 Solar lentigo 12/14/2012 01/02/2015 Myasthenia gravis 04/19/2012 09/15/2022 Viral warts, unspecified 09/29/2010 015 Irritated//Inflamed Seborrheic Keratosis 010 01/02/2015 Follow-up examination, following unspecified dheeraj diane 06/11/2009 08/14/2009 ACTINIC DAMAGE///SOLAR SKIN DAMAGE NOS 8 01/02/2015 Dermatitis due to cosmetics 04/07/200812/11 ACTINIC DAMAGE///CHR SOLAR SKIN DAMAGE NOS 04/0701/02/2015 Other seborrheic keratosis 04/07/200801/02 SOLAR LENTIGINES///DYSCHROMIA OTHER 04/07/2008 01/02/2015 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 01/02/2015 Special screening for malignant neoplasms, colon 08/11/2005 01/02/2015 Follow-up examination following surgery 10/31/20 03 01/02/2015 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; Confirmed Blk below His by His Bundle Electrogram Symptomatic bradycardia 09/15/2022 09/18/20 CHF (congestive heart failur e), NYHA class I, acute on chronic, diastolic 07/04/2022 08/26/2022 Xerosis cutis 12/14/2012 01/02/2015 Pruritus 12/14/2012 01/02/2015 Actinic skin damage 12/14/2012 01/02/2015 Solar lentigo 12/14/2012 01/02/2015 Myasthenia gravis 04/19/2012 09/15/2022 Viral warts, unspecified 09/29/2010 015 Irritated//Inflamed Seborrheic Keratosis 010 01/02/2015 Follow-up examination, following unspecified dheeraj diane 06/11/2009 08/14/2009 ACTINIC DAMAGE///SOLAR SKIN DAMAGE NOS 8 01/02/2015 Dermatitis due to cosmetics 04/07/200812/11 ACTINIC DAMAGE///CHR SOLAR SKIN DAMAGE NOS 04/0701/02/2015 Other seborrheic keratosis 04/07/200801/02 SOLAR LENTIGINES///DYSCHROMIA OTHER 04/07/2008 01/02/2015 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 01/02/2015 Special screening for malignant neoplasms, colon 08/11/2005 01/02/2015 Follow-up examination following surgery 10/31/20 03 01/02/2015 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; Confirmed Blk below His by His Bundle Electrogram Symptomatic bradycardia 09/15/2022 09/18/20 CHF (congestive heart failur e), NYHA class I, acute on chronic, diastolic 07/04/2022 08/26/2022 Xerosis cutis 12/14/2012 01/02/2015 Pruritus 12/14/2012 01/02/2015 Actinic skin damage 12/14/2012 01/02/2015 Solar lentigo 12/14/2012 01/02/2015 Myasthenia gravis 04/19/2012 09/15/2022 Viral warts, unspecified 09/29/2010 015 Irritated//Inflamed Seborrheic Keratosis 010 01/02/2015 Follow-up examination, following unspecified dheeraj diane 06/11/2009 08/14/2009 ACTINIC DAMAGE///SOLAR SKIN DAMAGE NOS 8 01/02/2015 Dermatitis due to cosmetics 04/07/200812/11 ACTINIC DAMAGE///CHR SOLAR SKIN DAMAGE NOS 04/0701/02/2015 Other seborrheic keratosis 04/07/200801/02 SOLAR LENTIGINES///DYSCHROMIA OTHER 04/07/2008 01/02/2015 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 01/02/2015 Special screening for malignant neoplasms, colon 08/11/2005 01/02/2015 Follow-up examination following surgery 10/31/20 03 01/02/2015 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; Confirmed Blk below His by His Bundle Electrogram Symptomatic bradycardia 09/15/2022 09/18/20 CHF (congestive heart failur e), NYHA class I, acute on chronic, diastolic 07/04/2022 08/26/2022 Xerosis cutis 12/14/2012 01/02/2015 Pruritus 12/14/2012 01/02/2015 Actinic skin damage 12/14/2012 01/02/2015 Solar lentigo 12/14/2012 01/02/2015 Myasthenia gravis 04/19/2012 09/15/2022 Viral warts, unspecified 09/29/2010 015 Irritated//Inflamed Seborrheic Keratosis 010 01/02/2015 Follow-up examination, following unspecified dheeraj diane 06/11/2009 08/14/2009 ACTINIC DAMAGE///SOLAR SKIN DAMAGE NOS 8 01/02/2015 Dermatitis due to cosmetics 04/07/200812/11 ACTINIC DAMAGE///CHR SOLAR SKIN DAMAGE NOS 04/0701/02/2015 Other seborrheic keratosis 04/07/200801/02 SOLAR LENTIGINES///DYSCHROMIA OTHER 04/07/2008 01/02/2015 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 01/02/2015 Special screening for malignant neoplasms, colon 08/11/2005 01/02/2015 Follow-up examination following surgery 10/31/20 03 01/02/2015 USP current use of ant icoagulants with INR goal of 2.0-3.0 09/15/2022 Nocturnal hypoxemia 08/29/2022 Overview: On oxygen at night documented as of this encounter (statuses as of 04/15/2023) [facility] History of Past illness Narrative* Problem Noted Date Resolved Date Myasthenia gravis 01/05/2023 03/25/2023 Overview: Last seen by neurology July 29, 2017. 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; Confirmed Blk below His by His Bundle Electrogram Symptomatic bradycardia 09/15/2022 09/18/20 CHF (congestive heart failur e), NYHA class I, acute on chronic, diastolic 07/04/2022 08/26/2022 Xerosis cutis 12/14/2012 01/02/2015 Pruritus 12/14/2012 01/02/2015 Actinic skin damage 12/14/2012 01/02/2015 Solar lentigo 12/14/2012 01/02/2015 Myasthenia gravis 04/19/2012 09/15/2022 Viral warts, unspecified 09/29/2010 015 Irritated//Inflamed Seborrheic Keratosis 010 01/02/2015 Follow-up examination, following unspecified dheeraj diane 06/11/2009 08/14/2009 ACTINIC DAMAGE///SOLAR SKIN DAMAGE NOS 8 01/02/2015 Dermatitis due to cosmetics 04/07/200812/11 ACTINIC DAMAGE///CHR SOLAR SKIN DAMAGE NOS 04/0701/02/2015 Other seborrheic keratosis 04/07/200801/02 SOLAR LENTIGINES///DYSCHROMIA OTHER 04/07/2008 01/02/2015 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 01/02/2015 Special screening for malignant neoplasms, colon 08/11/2005 01/02/2015 Follow-up examination following surgery 10/31/20 03 01/02/2015 USP current use of ant icoagulants with INR goal of 2.0-3.0 09/15/2022 Nocturnal hypoxemia 08/29/2022 Overview: On oxygen at night documented as of this encounter (statuses as of 04/16/2023) [facility]02-27-2023 History of Past illness Narrative* Problem Noted Date Resolved Date Myasthenia gravis 01/05/2023 03/25/2023 Overview: Last seen by neurology July 29, 2017. 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; Confirmed Blk below His by His Bundle Electrogram Symptomatic bradycardia 09/15/2022 09/18/20 CHF (congestive heart failur e), NYHA class I, acute on chronic, diastolic 07/04/2022 08/26/2022 Xerosis cutis 12/14/2012 01/02/2015 Pruritus 12/14/2012 01/02/2015 Actinic skin damage 12/14/2012 01/02/2015 Solar lentigo 12/14/2012 01/02/2015 Myasthenia gravis 04/19/2012 09/15/2022 Viral warts, unspecified 09/29/2010 015 Irritated//Inflamed Seborrheic Keratosis 010 01/02/2015 Follow-up examination, following unspecified dheeraj diane 06/11/2009 08/14/2009 ACTINIC DAMAGE///SOLAR SKIN DAMAGE NOS 8 01/02/2015 Dermatitis due to cosmetics 04/07/200812/11 ACTINIC DAMAGE///CHR SOLAR SKIN DAMAGE NOS 04/0701/02/2015 Other seborrheic keratosis 04/07/200801/02 SOLAR LENTIGINES///DYSCHROMIA OTHER 04/07/2008 01/02/2015 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 01/02/2015 Special screening for malignant neoplasms, colon 08/11/2005 01/02/2015 Follow-up examination following surgery 10/31/20 03 01/02/2015 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 of ant icoagulants with INR goal of 2.0-3.0 09/15/2022 Nocturnal hypoxemia 08/29/2022 Overview: On oxygen at night documented as of this encounter (statuses as of 04/21/2023) [facility]02-27-2023 History of Past illness Narrative* Problem Noted Date Resolved Date Myasthenia gravis 01/05/2023 03/25/2023 Overview: Last seen by neurology July 29, 2017. 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; Confirmed Blk below His by His Bundle Electrogram Symptomatic bradycardia 09/15/2022 09/18/20 CHF (congestive heart failur e), NYHA class I, acute on chronic, diastolic 07/04/2022 08/26/2022 Xerosis cutis 12/14/2012 01/02/2015 Pruritus 12/14/2012 01/02/2015 Actinic skin damage 12/14/2012 01/02/2015 Solar lentigo 12/14/2012 01/02/2015 Myasthenia gravis 04/19/2012 09/15/2022 Viral warts, unspecified 09/29/2010 015 Irritated//Inflamed Seborrheic Keratosis 010 01/02/2015 Follow-up examination, following unspecified dheeraj diane 06/11/2009 08/14/2009 ACTINIC DAMAGE///SOLAR SKIN DAMAGE NOS 8 01/02/2015 Dermatitis due to cosmetics 04/07/200812/11 ACTINIC DAMAGE///CHR SOLAR SKIN DAMAGE NOS 04/0701/02/2015 Other seborrheic keratosis 04/07/200801/02 SOLAR LENTIGINES///DYSCHROMIA OTHER 04/07/2008 01/02/2015 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 01/02/2015 Special screening for malignant neoplasms, colon 08/11/2005 01/02/2015 Follow-up examination following surgery 10/31/20 03 01/02/2015 USP current use of ant icoagulants with INR goal of 2.0-3.0 09/15/2022 Nocturnal hypoxemia 08/29/2022 Overview: On oxygen at night documented as of this encounter (statuses as of 05/05/2023) [facility]02-27-2023 History of Past illness Narrative* Problem Noted Date Resolved Date Myasthenia gravis 01/05/2023 03/25/2023 Overview: Last seen by neurology July 29, 2017. 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; Confirmed Blk below His by His Bundle Electrogram Symptomatic bradycardia 09/15/2022 09/18/20 CHF (congestive heart failur e), NYHA class I, acute on chronic, diastolic 07/04/2022 08/26/2022 Xerosis cutis 12/14/2012 01/02/2015 Pruritus 12/14/2012 01/02/2015 Actinic skin damage 12/14/2012 01/02/2015 Solar lentigo 12/14/2012 01/02/2015 Myasthenia gravis 04/19/2012 09/15/2022 Viral warts, unspecified 09/29/2010 015 Irritated//Inflamed Seborrheic Keratosis 010 01/02/2015 Follow-up examination, following unspecified dheeraj diane 06/11/2009 08/14/2009 ACTINIC DAMAGE///SOLAR SKIN DAMAGE NOS 8 01/02/2015 Dermatitis due to cosmetics 04/07/200812/11 ACTINIC DAMAGE///CHR SOLAR SKIN DAMAGE NOS 04/0701/02/2015 Other seborrheic keratosis 04/07/200801/02 SOLAR LENTIGINES///DYSCHROMIA OTHER 04/07/2008 01/02/2015 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 01/02/2015 Special screening for malignant neoplasms, colon 08/11/2005 01/02/2015 Follow-up examination following surgery 10/31/20 03 01/02/2015 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 of ant icoagulants with INR goal of 2.0-3.0 09/15/2022 Nocturnal hypoxemia 08/29/2022 Overview: On oxygen at night documented as of this encounter (statuses as of 05/05/2023) [facility]02-27-2023 History of Past illness Narrative* Problem Noted Date Resolved Date Myasthenia gravis 01/05/2023 03/25/2023 Overview: Last seen by neurology July 29, 2017. 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; Confirmed Blk below His by His Bundle Electrogram Symptomatic bradycardia 09/15/2022 09/18/20 CHF (congestive heart failur e), NYHA class I, acute on chronic, diastolic 07/04/2022 08/26/2022 Xerosis cutis 12/14/2012 01/02/2015 Pruritus 12/14/2012 01/02/2015 Actinic skin damage 12/14/2012 01/02/2015 Solar lentigo 12/14/2012 01/02/2015 Myasthenia gravis 04/19/2012 09/15/2022 Viral warts, unspecified 09/29/2010 015 Irritated//Inflamed Seborrheic Keratosis 010 01/02/2015 Follow-up examination, following unspecified dheeraj diane 06/11/2009 08/14/2009 ACTINIC DAMAGE///SOLAR SKIN DAMAGE NOS 8 01/02/2015 Dermatitis due to cosmetics 04/07/200812/11 ACTINIC DAMAGE///CHR SOLAR SKIN DAMAGE NOS 04/0701/02/2015 Other seborrheic keratosis 04/07/200801/02 SOLAR LENTIGINES///DYSCHROMIA OTHER 04/07/2008 01/02/2015 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 01/02/2015 Special screening for malignant neoplasms, colon 08/11/2005 01/02/2015 Follow-up examination following surgery 10/31/20 03 01/02/2015 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 of ant icoagulants with INR goal of 2.0-3.0 09/15/2022 Nocturnal hypoxemia 08/29/2022 Overview: On oxygen at night documented as of this encounter (statuses as of 05/06/2023) [facility]02-27-2023 History of Past illness Narrative* Problem Noted Date Resolved Date Myasthenia gravis 01/05/2023 03/25/2023 Overview: Last seen by neurology July 29, 2017. 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; Confirmed Blk below His by His Bundle Electrogram Symptomatic bradycardia 09/15/2022 09/18/20 CHF (congestive heart failur e), NYHA class I, acute on chronic, diastolic 07/04/2022 08/26/2022 Xerosis cutis 12/14/2012 01/02/2015 Pruritus 12/14/2012 01/02/2015 Actinic skin damage 12/14/2012 01/02/2015 Solar lentigo 12/14/2012 01/02/2015 Myasthenia gravis 04/19/2012 09/15/2022 Viral warts, unspecified 09/29/2010 015 Irritated//Inflamed Seborrheic Keratosis 010 01/02/2015 Follow-up examination, following unspecified dheeraj diane 06/11/2009 08/14/2009 ACTINIC DAMAGE///SOLAR SKIN DAMAGE NOS 8 01/02/2015 Dermatitis due to cosmetics 04/07/200812/11 ACTINIC DAMAGE///CHR SOLAR SKIN DAMAGE NOS 04/0701/02/2015 Other seborrheic keratosis 04/07/200801/02 SOLAR LENTIGINES///DYSCHROMIA OTHER 04/07/2008 01/02/2015 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 01/02/2015 Special screening for malignant neoplasms, colon 08/11/2005 01/02/2015 Follow-up examination following surgery 10/31/2001/02/2015 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 of ant icoagulants with INR goal of 2.0-3.0 09/15/2022 Nocturnal hypoxemia 08/29/2022 Overview: On oxygen at night documented as of this encounter (statuses as of 05/06/2023) [facility]02-27-2023 History of Past illness Narrative* Problem Noted Date Resolved Date Myasthenia gravis 01/05/2023 03/25/2023 Overview: Last seen by neurology July 29, 2017. 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; Confirmed Blk below His by His Bundle Electrogram Symptomatic bradycardia 09/15/2022 09/18/20 CHF (congestive heart failur e), NYHA class I, acute on chronic, diastolic 07/04/2022 08/26/2022 Xerosis cutis 12/14/2012 01/02/2015 Pruritus 12/14/2012 01/02/2015 Actinic skin damage 12/14/2012 01/02/2015 Solar lentigo 12/14/2012 01/02/2015 Myasthenia gravis 04/19/2012 09/15/2022 Viral warts, unspecified 09/29/2010 015 Irritated//Inflamed Seborrheic Keratosis 010 01/02/2015 Follow-up examination, following unspecified dheeraj diane 06/11/2009 08/14/2009 ACTINIC DAMAGE///SOLAR SKIN DAMAGE NOS 8 01/02/2015 Dermatitis due to cosmetics 04/07/200812/11 ACTINIC DAMAGE///CHR SOLAR SKIN DAMAGE NOS 04/0701/02/2015 Other seborrheic keratosis 04/07/200801/02 SOLAR LENTIGINES///DYSCHROMIA OTHER 04/07/2008 01/02/2015 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 01/02/2015 Special screening for malignant neoplasms, colon 08/11/2005 01/02/2015 Follow-up examination following surgery 10/31/2001/02/2015 USP current use of ant icoagulants with INR goal of 2.0-3.0 09/15/2022 Nocturnal hypoxemia 08/29/2022 Overview: On oxygen at night documented as of this encounter (statuses as of 05/06/2023) [facility]02-27-2023 History of Past illness Narrative* Problem Noted Date Resolved Date Myasthenia gravis 01/05/2023 03/25/2023 Overview: Last seen by neurology July 29, 2017. 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; Confirmed Blk below His by His Bundle Electrogram Symptomatic bradycardia 09/15/2022 09/18/20 CHF (congestive heart failur e), NYHA class I, acute on chronic, diastolic 07/04/2022 08/26/2022 Xerosis cutis 12/14/2012 01/02/2015 Pruritus 12/14/2012 01/02/2015 Actinic skin damage 12/14/2012 01/02/2015 Solar lentigo 12/14/2012 01/02/2015 Myasthenia gravis 04/19/2012 09/15/2022 Viral warts, unspecified 09/29/2010 015 Irritated//Inflamed Seborrheic Keratosis 010 01/02/2015 Follow-up examination, following unspecified dheeraj diane 06/11/2009 08/14/2009 ACTINIC DAMAGE///SOLAR SKIN DAMAGE NOS 8 01/02/2015 Dermatitis due to cosmetics 04/07/200812/11 ACTINIC DAMAGE///CHR SOLAR SKIN DAMAGE NOS 04/0701/02/2015 Other seborrheic keratosis 04/07/200801/02 SOLAR LENTIGINES///DYSCHROMIA OTHER 04/07/2008 01/02/2015 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 01/02/2015 Special screening for malignant neoplasms, colon 08/11/2005 01/02/2015 Follow-up examination following surgery 10/31/2001/02/2015 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 of ant icoagulants with INR goal of 2.0-3.0 09/15/2022 Nocturnal hypoxemia 08/29/2022 Overview: On oxygen at night documented as of this encounter (statuses as of 05/07/2023) [facility]02-[facility]-20[facility] History of Past illness Narrative* Problem Noted Date Resolved Date Myasthenia gravis 01/05/2023 03/25/2023 Overview: Last seen by neurology July 29, 2017. 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; Confirmed Blk below His by His Bundle Electrogram Symptomatic bradycardia 09/15/2022 09/18/20 CHF (congestive heart failur e), NYHA class I, acute on chronic, diastolic 07/04/2022 08/26/2022 Xerosis cutis 12/14/2012 01/02/2015 Pruritus 12/14/2012 01/02/2015 Actinic skin damage 12/14/2012 01/02/2015 Solar lentigo 12/14/2012 01/02/2015 Myasthenia gravis 04/19/2012 09/15/2022 Viral warts, unspecified 09/29/2010 015 Irritated//Inflamed Seborrheic Keratosis 010 01/02/2015 Follow-up examination, following unspecified dheeraj diane 06/11/2009 08/14/2009 ACTINIC DAMAGE///SOLAR SKIN DAMAGE NOS 8 01/02/2015 Dermatitis due to cosmetics 04/07/200812/11 ACTINIC DAMAGE///CHR SOLAR SKIN DAMAGE NOS 04/0701/02/2015 Other seborrheic keratosis 04/07/200801/02 SOLAR LENTIGINES///DYSCHROMIA OTHER 04/07/2008 01/02/2015 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 01/02/2015 Special screening for malignant neoplasms, colon 08/11/2005 01/02/2015 Follow-up examination following surgery 10/31/20 03 01/02/2015 USP current use of ant icoagulants with INR goal of 2.0-3.0 09/15/2022 Nocturnal hypoxemia 08/29/2022 Overview: On oxygen at night documented as of this encounter (statuses as of 05/07/2023) [facility]02-27-20[facility] History of Past illness Narrative* Problem Noted Date Resolved Date Myasthenia gravis 01/05/2023 03/25/2023 Overview: Last seen by neurology July 29, 2017. 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; Confirmed Blk below His by His Bundle Electrogram Symptomatic bradycardia 09/15/2022 09/18/20 CHF (congestive heart failur e), NYHA class I, acute on chronic, diastolic 07/04/2022 08/26/2022 Xerosis cutis 12/14/2012 01/02/2015 Pruritus 12/14/2012 01/02/2015 Actinic skin damage 12/14/2012 01/02/2015 Solar lentigo 12/14/2012 01/02/2015 Myasthenia gravis 04/19/2012 09/15/2022 Viral warts, unspecified 09/29/2010 015 Irritated//Inflamed Seborrheic Keratosis 010 01/02/2015 Follow-up examination, following unspecified dheeraj diane 06/11/2009 08/14/2009 ACTINIC DAMAGE///SOLAR SKIN DAMAGE NOS 8 01/02/2015 Dermatitis due to cosmetics 04/07/200812/11 ACTINIC DAMAGE///CHR SOLAR SKIN DAMAGE NOS 04/0701/02/2015 Other seborrheic keratosis 04/07/200801/02 SOLAR LENTIGINES///DYSCHROMIA OTHER 04/07/2008 01/02/2015 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 01/02/2015 Special screening for malignant neoplasms, colon 08/11/2005 01/02/2015 Follow-up examination following surgery 10/31/20 03 01/02/2015 USP current use of ant icoagulants with INR goal of 2.0-3.0 09/15/2022 Nocturnal hypoxemia 08/29/2022 Overview: On oxygen at night documented as of this encounter (statuses as of 05/07/2023) [facility] History of Past illness Narrative* Problem Noted Date Resolved Date Myasthenia gravis 01/05/2023 03/25/2023 Overview: Last seen by neurology July 29, 2017. 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; Confirmed Blk below His by His Bundle Electrogram Symptomatic bradycardia 09/15/2022 09/18/20 CHF (congestive heart failur e), NYHA class I, acute on chronic, diastolic 07/04/2022 08/26/2022 Xerosis cutis 12/14/2012 01/02/2015 Pruritus 12/14/2012 01/02/2015 Actinic skin damage 12/14/2012 01/02/2015 Solar lentigo 12/14/2012 01/02/2015 Myasthenia gravis 04/19/2012 09/15/2022 Viral warts, unspecified 09/29/2010 015 Irritated//Inflamed Seborrheic Keratosis 010 01/02/2015 Follow-up examination, following unspecified dheeraj diane 06/11/2009 08/14/2009 ACTINIC DAMAGE///SOLAR SKIN DAMAGE NOS 8 01/02/2015 Dermatitis due to cosmetics 04/07/200812/11 ACTINIC DAMAGE///CHR SOLAR SKIN DAMAGE NOS 04/0701/02/2015 Other seborrheic keratosis 04/07/200801/02 SOLAR LENTIGINES///DYSCHROMIA OTHER 04/07/2008 01/02/2015 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 01/02/2015 Special screening for malignant neoplasms, colon 08/11/2005 01/02/2015 Follow-up examination following surgery 10/31/20 03 01/02/2015 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 of ant icoagulants with INR goal of 2.0-3.0 09/15/2022 Nocturnal hypoxemia 08/29/2022 Overview: On oxygen at night documented as of this encounter (statuses as of 05/08/2023) [facility] History of Past illness Narrative* Problem Noted Date Resolved Date Myasthenia gravis 01/05/2023 03/25/2023 Overview: Last seen by neurology July 29, 2017. 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; Confirmed Blk below His by His Bundle Electrogram Symptomatic bradycardia 09/15/2022 09/18/20 CHF (congestive heart failur e), NYHA class I, acute on chronic, diastolic 07/04/2022 08/26/2022 Xerosis cutis 12/14/2012 01/02/2015 Pruritus 12/14/2012 01/02/2015 Actinic skin damage 12/14/2012 01/02/2015 Solar lentigo 12/14/2012 01/02/2015 Myasthenia gravis 04/19/2012 09/15/2022 Viral warts, unspecified 09/29/2010 015 Irritated//Inflamed Seborrheic Keratosis 010 01/02/2015 Follow-up examination, following unspecified dheeraj diane 06/11/2009 08/14/2009 ACTINIC DAMAGE///SOLAR SKIN DAMAGE NOS 8 01/02/2015 Dermatitis due to cosmetics 04/07/200812/11 ACTINIC DAMAGE///CHR SOLAR SKIN DAMAGE NOS 04/0701/02/2015 Other seborrheic keratosis 04/07/200801/02 SOLAR LENTIGINES///DYSCHROMIA OTHER 04/07/2008 01/02/2015 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 01/02/2015 Special screening for malignant neoplasms, colon 08/11/2005 01/02/2015 Follow-up examination following surgery 10/31/20 03 01/02/2015 USP current use of ant icoagulants with INR goal of 2.0-3.0 09/15/2022 Nocturnal hypoxemia 08/29/2022 Overview: On oxygen at night documented as of this encounter (statuses as of 05/12/2023) [facility] History of Past illness Narrative* Problem Noted Date Resolved Date Myasthenia gravis 01/05/2023 03/25/2023 Overview: Last seen by neurology July 29, 2017. 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; Confirmed Blk below His by His Bundle Electrogram Symptomatic bradycardia 09/15/2022 09/18/20 CHF (congestive heart failur e), NYHA class I, acute on chronic, diastolic 07/04/2022 08/26/2022 Xerosis cutis 12/14/2012 01/02/2015 Pruritus 12/14/2012 01/02/2015 Actinic skin damage 12/14/2012 01/02/2015 Solar lentigo 12/14/2012 01/02/2015 Myasthenia gravis 04/19/2012 09/15/2022 Viral warts, unspecified 09/29/2010 015 Irritated//Inflamed Seborrheic Keratosis 010 01/02/2015 Follow-up examination, following unspecified dheeraj diane 06/11/2009 08/14/2009 ACTINIC DAMAGE///SOLAR SKIN DAMAGE NOS 8 01/02/2015 Dermatitis due to cosmetics 04/07/200812/11 ACTINIC DAMAGE///CHR SOLAR SKIN DAMAGE NOS 04/0701/02/2015 Other seborrheic keratosis 04/07/200801/02 SOLAR LENTIGINES///DYSCHROMIA OTHER 04/07/2008 01/02/2015 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 01/02/2015 Special screening for malignant neoplasms, colon 08/11/2005 01/02/2015 Follow-up examination following surgery 10/31/20 03 01/02/2015 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 of ant icoagulants with INR goal of 2.0-3.0 09/15/2022 Nocturnal hypoxemia 08/29/2022 Overview: On oxygen at night documented as of this encounter (statuses as of 05/14/2023) [facility] History of Past illness Narrative* Problem Noted Date Resolved Date Myasthenia gravis 01/05/2023 03/25/2023 Overview: Last seen by neurology July 29, 2017. 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; Confirmed Blk below His by His Bundle Electrogram Symptomatic bradycardia 09/15/2022 09/18/20 CHF (congestive heart failur e), NYHA class I, acute on chronic, diastolic 07/04/2022 08/26/2022 Xerosis cutis 12/14/2012 01/02/2015 Pruritus 12/14/2012 01/02/2015 Actinic skin damage 12/14/2012 01/02/2015 Solar lentigo 12/14/2012 01/02/2015 Myasthenia gravis 04/19/2012 09/15/2022 Viral warts, unspecified 09/29/2010 015 Irritated//Inflamed Seborrheic Keratosis 010 01/02/2015 Follow-up examination, following unspecified dheeraj diane 06/11/2009 08/14/2009 ACTINIC DAMAGE///SOLAR SKIN DAMAGE NOS 8 01/02/2015 Dermatitis due to cosmetics 04/07/200812/11 ACTINIC DAMAGE///CHR SOLAR SKIN DAMAGE NOS 04/0701/02/2015 Other seborrheic keratosis 04/07/200801/02 SOLAR LENTIGINES///DYSCHROMIA OTHER 04/07/2008 01/02/2015 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 01/02/2015 Special screening for malignant neoplasms, colon 08/11/2005 01/02/2015 Follow-up examination following surgery 10/31/20 03 01/02/2015 USP current use of ant icoagulants with INR goal of 2.0-3.0 09/15/2022 Nocturnal hypoxemia 08/29/2022 Overview: On oxygen at night documented as of this encounter (statuses as of 05/14/2023) [facility]23 History of Past illness Narrative* Problem Noted Date Resolved Date Myasthenia gravis 01/05/2023 03/25/2023 Overview: Last seen by neurology July 29, 2017. 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; Confirmed Blk below His by His Bundle Electrogram Symptomatic bradycardia 09/15/2022 09/18/20 CHF (congestive heart failur e), NYHA class I, acute on chronic, diastolic 07/04/2022 08/26/2022 Xerosis cutis 12/14/2012 01/02/2015 Pruritus 12/14/2012 01/02/2015 Actinic skin damage 12/14/2012 01/02/2015 Solar lentigo 12/14/2012 01/02/2015 Myasthenia gravis 04/19/2012 09/15/2022 Viral warts, unspecified 09/29/2010 015 Irritated//Inflamed Seborrheic Keratosis 010 01/02/2015 Follow-up examination, following unspecified dheeraj diane 06/11/2009 08/14/2009 ACTINIC DAMAGE///SOLAR SKIN DAMAGE NOS 8 01/02/2015 Dermatitis due to cosmetics 04/07/200812/11 ACTINIC DAMAGE///CHR SOLAR SKIN DAMAGE NOS 04/0701/02/2015 Other seborrheic keratosis 04/07/200801/02 SOLAR LENTIGINES///DYSCHROMIA OTHER 04/07/2008 01/02/2015 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 01/02/2015 Special screening for malignant neoplasms, colon 08/11/2005 01/02/2015 Follow-up examination following surgery 10/31/20 03 01/02/2015 USP current use of ant icoagulants with INR goal of 2.0-3.0 09/15/2022 Nocturnal hypoxemia 08/29/2022 Overview: On oxygen at night documented as of this encounter (statuses as of 05/14/2023) [facility]02-[facility]23 History of Past illness Narrative* Problem Noted Date Diagnosed Date Resolved Date Myasthenia gravis 01/05/2023 03/25/2023 Overview: Last seen by neurology July 29, 2017. 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; Confirmed Blk below His by His Bundle Electrogram Symptomatic bradycardia 09/15/202209/09 CHF (congestive heart failur e), NYHA class I, acute on chronic, diastolic 07/04/2022 08/26/2022 Xerosis cutis 12/14/2012 01/02/2015 Pruritus 12/14/2012 01/02/2015 Actinic skin damage 12/14/2012 01/02/20 15 Solar lentigo 12/14/2012 01/02/2015 Myasthenia gravis 04/19/2012 09/15/2022 Viral warts, unspecified 09/29/2010 Irritated//Inflamed Seborrheic Keratosis 09/29/2010 01/02/2015 Follow-up examination, follo wing unspecified surgery 06/11/2009 08/14/2009 ACTINIC DAMAGE///SOLAR SKIN DAMAGE NOS 04/07/2008 01/02/2015 Dermatitis due to cosmetics 04/07/2008 01/02/2015 ACTINIC DAMAGE///CHR SOLAR SKIN DAMAGE NOS 04/07/2008 01/02/2015 Other seborrheic keratosis 04/07/2008 0 01/02/2015 SOLAR LENTIGINES///DYSCHROMIA OTHER 04/07/2008 01/02/2015 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 01/02/2015 Special screening for malign ant neoplasms, colon 08/11/2005 01/02/2015 Follow-up examination following surgery 10/31/2003 01/02/2015 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; Confirmed Blk below His by His Bundle Electrogram Symptomatic bradycardia 09/15/202209/09 CHF (congestive heart failur e), NYHA class I, acute on chronic, diastolic 07/04/2022 08/26/2022 Xerosis cutis 12/14/2012 01/02/2015 Pruritus 12/14/2012 01/02/2015 Actinic skin damage 12/14/2012 01/02/20 15 Solar lentigo 12/14/2012 01/02/2015 Myasthenia gravis 04/19/2012 09/15/2022 Viral warts, unspecified 09/29/2010 Irritated//Inflamed Seborrheic Keratosis 09/29/2010 01/02/2015 Follow-up examination, follo wing unspecified surgery 06/11/2009 08/14/2009 ACTINIC DAMAGE///SOLAR SKIN DAMAGE NOS 04/07/2008 01/02/2015 Dermatitis due to cosmetics 04/07/2008 01/02/2015 ACTINIC DAMAGE///CHR SOLAR SKIN DAMAGE NOS 04/07/2008 01/02/2015 Other seborrheic keratosis 04/07/2008 0 01/02/2015 SOLAR LENTIGINES///DYSCHROMIA OTHER 04/07/2008 01/02/2015 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 01/02/2015 Special screening for malign ant neoplasms, colon 08/11/2005 01/02/2015 Follow-up examination following surgery 10/31/2003 01/02/2015 USP current use of ant icoagulants with INR goal of 2.0-3.0 09/15/2022 Nocturnal hypoxemia 08/29/20 Overview: On oxygen at night documented as of this encounter (statuses as of 05/20/2023) [facility]02-[facility]2023 History of Past illness Narrative* Problem Noted Date Diagnosed Date Resolved Date Myasthenia gravis 01/05/2023 03/25/2023 Overview: Last seen by neurology July 29, 2017. 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; Confirmed Blk below His by His Bundle Electrogram Symptomatic bradycardia 09/15/202209/09 CHF (congestive heart failur e), NYHA class I, acute on chronic, diastolic 07/04/2022 08/26/2022 Xerosis cutis 12/14/2012 01/02/2015 Pruritus 12/14/2012 01/02/2015 Actinic skin damage 12/14/2012 01/02/20 15 Solar lentigo 12/14/2012 01/02/2015 Myasthenia gravis 04/19/2012 09/15/2022 Viral warts, unspecified 09/29/2010 Irritated//Inflamed Seborrheic Keratosis 09/29/2010 01/02/2015 Follow-up examination, follo wing unspecified surgery 06/11/2009 08/14/2009 ACTINIC DAMAGE///SOLAR SKIN DAMAGE NOS 04/07/2008 01/02/2015 Dermatitis due to cosmetics 04/07/2008 01/02/2015 ACTINIC DAMAGE///CHR SOLAR SKIN DAMAGE NOS 04/07/2008 01/02/2015 Other seborrheic keratosis 04/07/2008 0 01/02/2015 SOLAR LENTIGINES///DYSCHROMIA OTHER 04/07/2008 01/02/2015 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 01/02/2015 Special screening for malign ant neoplasms, colon 08/11/2005 01/02/2015 Follow-up examination following surgery 10/31/2003 01/02/2015 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; Confirmed Blk below His by His Bundle Electrogram Symptomatic bradycardia 09/15/202209/09 CHF (congestive heart failur e), NYHA class I, acute on chronic, diastolic 07/04/2022 08/26/2022 Xerosis cutis 12/14/2012 01/02/2015 Pruritus 12/14/2012 01/02/2015 Actinic skin damage 12/14/2012 01/02/20 15 Solar lentigo 12/14/2012 01/02/2015 Myasthenia gravis 04/19/2012 09/15/2022 Viral warts, unspecified 09/29/2010 Irritated//Inflamed Seborrheic Keratosis 09/29/2010 01/02/2015 Follow-up examination, follo wing unspecified surgery 06/11/2009 08/14/2009 ACTINIC DAMAGE///SOLAR SKIN DAMAGE NOS 04/07/2008 01/02/2015 Dermatitis due to cosmetics 04/07/2008 01/02/2015 ACTINIC DAMAGE///CHR SOLAR SKIN DAMAGE NOS 04/07/2008 01/02/2015 Other seborrheic keratosis 04/07/2008 0 01/02/2015 SOLAR LENTIGINES///DYSCHROMIA OTHER 04/07/2008 01/02/2015 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 01/02/2015 Special screening for malign ant neoplasms, colon 08/11/2005 01/02/2015 Follow-up examination following surgery 10/31/2003 01/02/2015 USP current use of ant icoagulants with INR goal of 2.0-3.0 09/15/2022 Nocturnal hypoxemia 08/29/20 22 Overview: On oxygen at night documented as of this encounter (statuses as of 05/26/2023) [facility] History of Past illness Narrative* Problem Noted Date Diagnosed Date Resolved Date Myasthenia gravis 01/05/2023 03/25/2023 Overview: Last seen by neurology July 29, 2017. 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; Confirmed Blk below His by His Bundle Electrogram Symptomatic bradycardia 09/15/202209/09 CHF (congestive heart failur e), NYHA class I, acute on chronic, diastolic 07/04/2022 08/26/2022 Xerosis cutis 12/14/2012 01/02/2015 Pruritus 12/14/2012 01/02/2015 Actinic skin damage 12/14/2012 01/02/20 15 Solar lentigo 12/14/2012 01/02/2015 Myasthenia gravis 04/19/2012 09/15/2022 Viral warts, unspecified 09/29/2010 Irritated//Inflamed Seborrheic Keratosis 09/29/2010 01/02/2015 Follow-up examination, follo wing unspecified surgery 06/11/2009 08/14/2009 ACTINIC DAMAGE///SOLAR SKIN DAMAGE NOS 04/07/2008 01/02/2015 Dermatitis due to cosmetics 04/07/2008 01/02/2015 ACTINIC DAMAGE///CHR SOLAR SKIN DAMAGE NOS 04/07/2008 01/02/2015 Other seborrheic keratosis 04/07/2008 0 01/02/2015 SOLAR LENTIGINES///DYSCHROMIA OTHER 04/07/2008 01/02/2015 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 01/02/2015 Special screening for malign ant neoplasms, colon 08/11/2005 01/02/2015 Follow-up examination following surgery 10/31/2003 01/02/2015 USP current use of ant icoagulants with INR goal of 2.0-3.0 09/15/2022 Nocturnal hypoxemia 08/29/20 22 Overview: On oxygen at night documented as of this encounter (statuses as of 05/27/2023) [facility] History of Past illness Narrative* Problem Noted Date Diagnosed Date Resolved Date Myasthenia gravis 01/05/2023 03/25/2023 Overview: Last seen by neurology July 29, 2017. 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; Confirmed Blk below His by His Bundle Electrogram Symptomatic bradycardia 09/15/202209/09 CHF (congestive heart failur e), NYHA class I, acute on chronic, diastolic 07/04/2022 08/26/2022 Xerosis cutis 12/14/2012 01/02/2015 Pruritus 12/14/2012 01/02/2015 Actinic skin damage 12/14/2012 01/02/20 15 Solar lentigo 12/14/2012 01/02/2015 Myasthenia gravis 04/19/2012 09/15/2022 Viral warts, unspecified 09/29/2010 Irritated//Inflamed Seborrheic Keratosis 09/29/2010 01/02/2015 Follow-up examination, follo wing unspecified surgery 06/11/2009 08/14/2009 ACTINIC DAMAGE///SOLAR SKIN DAMAGE NOS 04/07/2008 01/02/2015 Dermatitis due to cosmetics 04/07/2008 01/02/2015 ACTINIC DAMAGE///CHR SOLAR SKIN DAMAGE NOS 04/07/2008 01/02/2015 Other seborrheic keratosis 04/07/2008 0 01/02/2015 SOLAR LENTIGINES///DYSCHROMIA OTHER 04/07/2008 01/02/2015 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 01/02/2015 Special screening for malign ant neoplasms, colon 08/11/2005 01/02/2015 Follow-up examination following surgery 10/31/2003 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 06/16/2023 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 08/22/2022 06/16/2023 CHF (congestive heart failur e), NYHA class I, acute on chronic, diastolic 07/04/2022 08/26/2022 Benign hypertension 08/14/2021 06/16/20 23 Status post ligation of left atrial appendage 07/10/20 21 06/16/2023 Overview: At time of CABG Macrocytosis 07/11/2020 06/16/2023 Hx of colonoscopy 09/27/2015 06/16/2023 Overview: no reported polyps per patient recollection S/P shoulder replacement 02/08/201506/2023 Xerosis cutis 12/14/2012 01/02/2015 Pruritus 12/14/2012 01/02/2015 Actinic skin damage 12/14/2012 01/02/20 15 Solar lentigo 12/14/2012 01/02/2015 Myasthenia gravis 04/19/2012 09/15/2022 Back pain 01/09/2012 06/16/2023 Viral warts, unspecified 09/29/2010 Irritated//Inflamed Seborrheic Keratosis 09/29/2010 01/02/2015 Insomnia 08/13/2010 06/16/2023 Erectile dysfunction 08/13/2010 023 Follow-up examination, follo wing unspecified surgery 06/11/2009 08/14/2009 Osteoarthrosis, unspecified whether generalized or localized, other specified sites 12/14/2008 06/16/2023 Primary localized osteoarthr osis, shoulder region 09/21/2008 06/16/2023 Overview: rt. shoulder ACTINIC DAMAGE///SOLAR SKIN DAMAGE NOS 04/07/2008 01/02/2015 Dermatitis due to cosmetics 04/07/2008 01/02/2015 ACTINIC DAMAGE///CHR SOLAR SKIN DAMAGE NOS 04/07/2008 01/02/2015 Other seborrheic keratosis 04/07/2008 0 01/02/2015 SOLAR LENTIGINES///DYSCHROMIA OTHER 04/07/2008 01/02/2015 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 01/02/2015 Special screening for malign ant neoplasms, colon 08/11/2005 01/02/2015 Follow-up examination following surgery 10/31/2003 01/02/2015 Injury to ulnar nerve 09/21/20032022 Diverticulosis 06/16/2023 History of anemia 06/16/2023 Lumbar stenosis 06/16/2023 Overview: MRI 2019 , severe LCS L2-3 Osteoarthritis, generalized 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 06/16/2023 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 08/22/2022 06/16/2023 CHF (congestive heart failur e), NYHA class I, acute on chronic, diastolic 07/04/2022 08/26/2022 Benign hypertension 08/14/2021 06/16/20 Status post ligation of left atrial appendage 07/10/2006/16/2023 Overview: At time of CABG Macrocytosis 07/11/2020 06/16/2023 Hx of colonoscopy 09/27/2015 06/16/2023 Overview: no reported polyps per patient recollection S/P shoulder replacement 02/08/201506/2023 Xerosis cutis 12/14/2012 01/02/2015 Pruritus 12/14/2012 01/02/2015 Actinic skin damage 12/14/2012 01/02/20 15 Solar lentigo 12/14/2012 01/02/2015 Myasthenia gravis 04/19/2012 09/15/2022 Back pain 01/09/2012 06/16/2023 Viral warts, unspecified 09/29/2010 Irritated//Inflamed Seborrheic Keratosis 09/29/2010 01/02/2015 Insomnia 08/13/2010 06/16/2023 Erectile dysfunction 08/13/2010 023 Follow-up examination, follo wing unspecified surgery 06/11/2009 08/14/2009 Osteoarthrosis, unspecified whether generalized or localized, other specified sites 12/14/2008 06/16/2023 Primary localized osteoarthr osis, shoulder region 09/21/2008 06/16/2023 Overview: rt. shoulder ACTINIC DAMAGE///SOLAR SKIN DAMAGE NOS 04/07/2008 01/02/2015 Dermatitis due to cosmetics 04/07/2008 01/02/2015 ACTINIC DAMAGE///CHR SOLAR SKIN DAMAGE NOS 04/07/2008 01/02/2015 Other seborrheic keratosis 04/07/2008 0 01/02/2015 SOLAR LENTIGINES///DYSCHROMIA OTHER 04/07/2008 01/02/2015 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 01/02/2015 Special screening for malign ant neoplasms, colon 08/11/2005 01/02/2015 Follow-up examination following surgery 10/31/2003 01/02/2015 Injury to ulnar nerve 09/21/20032022 Diverticulosis 06/16/2023 History of anemia 06/16/2023 Lumbar stenosis 06/16/2023 Overview: MRI 2019 , severe LCS L2-3 Osteoarthritis, generalized 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/2022 06/16/2023 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 08/22/2022 06/16/2023 CHF (congestive heart failur e), NYHA class I, acute on chronic, diastolic 07/04/2022 08/26/2022 Benign hypertension 08/14/2021 06/16/20 23 Status post ligation of left atrial appendage 07/10/20 21 06/16/2023 Overview: At time of CABG PAF (paroxysmal atrial fibrillation) 11/09/2020 07/23/2023 Overview: Post CABG atrial fibrillation Macrocytosis 07/11/2020 06/16/2023 Hx of colonoscopy 09/27/2015 06/16/2023 Overview: no reported polyps per patient recollection S/P shoulder replacement 02/08/201506/2023 Xerosis cutis 12/14/2012 01/02/2015 Pruritus 12/14/2012 01/02/2015 Actinic skin damage 12/14/2012 01/02/20 15 Solar lentigo 12/14/2012 01/02/2015 Myasthenia gravis 04/19/2012 09/15/2022 Back pain 01/09/2012 06/16/2023 Viral warts, unspecified 09/29/2010 Irritated//Inflamed Seborrheic Keratosis 09/29/2010 01/02/2015 Insomnia 08/13/2010 06/16/2023 Erectile dysfunction 08/13/2010 023 Follow-up examination, follo wing unspecified surgery 06/11/2009 08/14/2009 Osteoarthrosis, unspecified whether generalized or localized, other specified sites 12/14/2008 06/16/2023 Primary localized osteoarthr osis, shoulder region 09/21/2008 06/16/2023 Overview: rt. shoulder ACTINIC DAMAGE///SOLAR SKIN DAMAGE NOS 04/07/2008 01/02/2015 Dermatitis due to cosmetics 04/07/2008 01/02/2015 ACTINIC DAMAGE///CHR SOLAR SKIN DAMAGE NOS 04/07/2008 01/02/2015 Other seborrheic keratosis 04/07/2008 0 01/02/2015 SOLAR LENTIGINES///DYSCHROMIA OTHER 04/07/2008 01/02/2015 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 01/02/2015 Special screening for malign ant neoplasms, colon 08/11/2005 01/02/2015 Follow-up examination following surgery 10/31/2003 01/02/2015 Injury to ulnar nerve 09/21/20032022 Diverticulosis 06/16/2023 History of anemia 06/16/2023 Lumbar stenosis 06/16/2023 Overview: MRI 2019 , severe LCS L2-3 Osteoarthritis, generalized 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/2022 06/16/2023 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 08/22/2022 06/16/2023 CHF (congestive heart failur e), NYHA class I, acute on chronic, diastolic 07/04/2022 08/26/2022 Benign hypertension 08/14/2021 06/16/20 23 Status post ligation of left atrial appendage 07/10/20 21 06/16/2023 Overview: At time of CABG PAF (paroxysmal atrial fibrillation) 11/09/2020 07/23/2023 Overview: Post CABG atrial fibrillation Macrocytosis 07/11/2020 06/16/2023 Hx of colonoscopy 09/27/2015 06/16/2023 Overview: no reported polyps per patient recollection S/P shoulder replacement 02/08/201506/2023 Xerosis cutis 12/14/2012 01/02/2015 Pruritus 12/14/2012 01/02/2015 Actinic skin damage 12/14/2012 01/02/20 15 Solar lentigo 12/14/2012 01/02/2015 Myasthenia gravis 04/19/2012 09/15/2022 Back pain 01/09/2012 06/16/2023 Viral warts, unspecified 09/29/2010 Irritated//Inflamed Seborrheic Keratosis 09/29/2010 01/02/2015 Insomnia 08/13/2010 06/16/2023 Erectile dysfunction 08/13/2010 023 Follow-up examination, follo wing unspecified surgery 06/11/2009 08/14/2009 Osteoarthrosis, unspecified whether generalized or localized, other specified sites 12/14/2008 06/16/2023 Primary localized osteoarthr osis, shoulder region 09/21/2008 06/16/2023 Overview: rt. shoulder ACTINIC DAMAGE///SOLAR SKIN DAMAGE NOS 04/07/2008 01/02/2015 Dermatitis due to cosmetics 04/07/2008 01/02/2015 ACTINIC DAMAGE///CHR SOLAR SKIN DAMAGE NOS 04/07/2008 01/02/2015 Other seborrheic keratosis 04/07/2008 0 01/02/2015 SOLAR LENTIGINES///DYSCHROMIA OTHER 04/07/2008 01/02/2015 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 01/02/2015 Special screening for malign ant neoplasms, colon 08/11/2005 01/02/2015 Follow-up examination following surgery 10/31/2003 01/02/2015 Injury to ulnar nerve 09/21/20032022 Diverticulosis 06/16/2023 History of anemia 06/16/2023 Lumbar stenosis 06/16/2023 Overview: MRI 2019 , severe LCS L2-3 Osteoarthritis, generalized 06/16/2023 USP current use of ant icoagulants with INR goal of 2.0-3.0 09/15/2022 Nocturnal hypoxemia 08/29/20 22 Overview: On oxygen at night PVC's (premature ventricular contractions) 06/16/2023 RBBB 06/16/2023 documented as of this encounter (statuses as of 07/25/2023) [facility]02-27-2023 History of Past illness Narrative* Problem Noted Date Diagnosed Date Resolved Date Nocturnal hypoxemia 01/05/2023 06/12/20 Overview: On oxygen at night Myasthenia gravis 01/05/2023 03/25/2023 Overview: Last seen by neurology July 29, 2017. 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 06/16/2023 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 08/22/2022 06/16/2023 CHF (congestive heart failur e), NYHA class I, acute on chronic, diastolic 07/04/2022 08/26/2022 Benign hypertension 08/14/2021 06/16/20 23 Status post ligation of left atrial appendage 07/10/20 21 06/16/2023 Overview: At time of CABG PAF (paroxysmal atrial fibrillation) 11/09/2020 07/23/2023 Overview: Post CABG atrial fibrillation Macrocytosis 07/11/2020 06/16/2023 Hx of colonoscopy 09/27/2015 06/16/2023 Overview: no reported polyps per patient recollection S/P shoulder replacement 02/08/201506/2023 Xerosis cutis 12/14/2012 01/02/2015 Pruritus 12/14/2012 01/02/2015 Actinic skin damage 12/14/2012 01/02/20 15 Solar lentigo 12/14/2012 01/02/2015 Myasthenia gravis 04/19/2012 09/15/2022 Back pain 01/09/2012 06/16/2023 Viral warts, unspecified 09/29/2010 Irritated//Inflamed Seborrheic Keratosis 09/29/2010 01/02/2015 Insomnia 08/13/2010 06/16/2023 Erectile dysfunction 08/13/2010 023 Follow-up examination, follo wing unspecified surgery 06/11/2009 08/14/2009 Osteoarthrosis, unspecified whether generalized or localized, other specified sites 12/14/2008 06/16/2023 Primary localized osteoarthr osis, shoulder region 09/21/2008 06/16/2023 Overview: rt. shoulder ACTINIC DAMAGE///SOLAR SKIN DAMAGE NOS 04/07/2008 01/02/2015 Dermatitis due to cosmetics 04/07/2008 01/02/2015 ACTINIC DAMAGE///CHR SOLAR SKIN DAMAGE NOS 04/07/2008 01/02/2015 Other seborrheic keratosis 04/07/2008 0 01/02/2015 SOLAR LENTIGINES///DYSCHROMIA OTHER 04/07/2008 01/02/2015 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 01/02/2015 Special screening for malign ant neoplasms, colon 08/11/2005 01/02/2015 Follow-up examination following surgery 10/31/2003 01/02/2015 Injury to ulnar nerve 09/21/20032022 Diverticulosis 06/16/2023 History of anemia 06/16/2023 Lumbar stenosis 06/16/2023 Overview: MRI 2019 , severe LCS L2-3 Osteoarthritis, generalized 06/16/2023 USP current use of ant icoagulants with INR goal of 2.0-3.0 09/15/2022 Nocturnal hypoxemia 08/29/20 22 Overview: On oxygen at night PVC's (premature ventricular contractions) 06/16/2023 RBBB 06/16/2023 documented as of this encounter (statuses as of 07/27/2023) [facility]02-27-2023 History of Past illness Narrative* Problem Noted Date Diagnosed Date Resolved Date Nocturnal hypoxemia 01/05/2023 06/12/20 Overview: On oxygen at night Myasthenia gravis 01/05/2023 03/25/2023 Overview: Last seen by neurology July 29, 2017. 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/2022 06/16/2023 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 08/22/2022 06/16/2023 CHF (congestive heart failur e), NYHA class I, acute on chronic, diastolic 07/04/2022 08/26/2022 Benign hypertension 08/14/2021 06/16/20 23 Status post ligation of left atrial appendage 07/10/20 21 06/16/2023 Overview: At time of CABG PAF (paroxysmal atrial fibrillation) 11/09/2020 07/23/2023 Overview: Post CABG atrial fibrillation Macrocytosis 07/11/2020 06/16/2023 Hx of colonoscopy 09/27/2015 06/16/2023 Overview: no reported polyps per patient recollection S/P shoulder replacement 02/08/201506/2023 Xerosis cutis 12/14/2012 01/02/2015 Pruritus 12/14/2012 01/02/2015 Actinic skin damage 12/14/2012 01/02/20 15 Solar lentigo 12/14/2012 01/02/2015 Myasthenia gravis 04/19/2012 09/15/2022 Back pain 01/09/2012 06/16/2023 Viral warts, unspecified 09/29/2010 Irritated//Inflamed Seborrheic Keratosis 09/29/2010 01/02/2015 Insomnia 08/13/2010 06/16/2023 Erectile dysfunction 08/13/2010 023 Follow-up examination, follo wing unspecified surgery 06/11/2009 08/14/2009 Osteoarthrosis, unspecified whether generalized or localized, other specified sites 12/14/2008 06/16/2023 Primary localized osteoarthr osis, shoulder region 09/21/2008 06/16/2023 Overview: rt. shoulder ACTINIC DAMAGE///SOLAR SKIN DAMAGE NOS 04/07/2008 01/02/2015 Dermatitis due to cosmetics 04/07/2008 01/02/2015 ACTINIC DAMAGE///CHR SOLAR SKIN DAMAGE NOS 04/07/2008 01/02/2015 Other seborrheic keratosis 04/07/2008 0 01/02/2015 SOLAR LENTIGINES///DYSCHROMIA OTHER 04/07/2008 01/02/2015 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 01/02/2015 Special screening for malign ant neoplasms, colon 08/11/2005 01/02/2015 Follow-up examination following surgery 10/31/2003 01/02/2015 Injury to ulnar nerve 09/21/20032022 Diverticulosis 06/16/2023 History of anemia 06/16/2023 Lumbar stenosis 06/16/2023 Overview: MRI 2019 , severe LCS L2-3 Osteoarthritis, generalized 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/2022 06/16/2023 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 08/22/2022 06/16/2023 CHF (congestive heart failur e), NYHA class I, acute on chronic, diastolic 07/04/2022 08/26/2022 Benign hypertension 08/14/2021 06/16/20 23 Status post ligation of left atrial appendage 07/10/2006/16/2023 Overview: At time of CABG PAF (paroxysmal atrial fibrillation) 11/09/2020 07/23/2023 Overview: Post CABG atrial fibrillation Macrocytosis 07/11/2020 06/16/2023 Hx of colonoscopy 09/27/2015 06/16/2023 Overview: no reported polyps per patient recollection S/P shoulder replacement 02/08/201506/2023 Xerosis cutis 12/14/2012 01/02/2015 Pruritus 12/14/2012 01/02/2015 Actinic skin damage 12/14/2012 01/02/20 15 Solar lentigo 12/14/2012 01/02/2015 Myasthenia gravis 04/19/2012 09/15/2022 Back pain 01/09/2012 06/16/2023 Viral warts, unspecified 09/29/2010 Irritated//Inflamed Seborrheic Keratosis 09/29/2010 01/02/2015 Insomnia 08/13/2010 06/16/2023 Erectile dysfunction 08/13/2010 023 Follow-up examination, follo wing unspecified surgery 06/11/2009 08/14/2009 Osteoarthrosis, unspecified whether generalized or localized, other specified sites 12/14/2008 06/16/2023 Primary localized osteoarthr osis, shoulder region 09/21/2008 06/16/2023 Overview: rt. shoulder ACTINIC DAMAGE///SOLAR SKIN DAMAGE NOS 04/07/2008 01/02/2015 Dermatitis due to cosmetics 04/07/2008 01/02/2015 ACTINIC DAMAGE///CHR SOLAR SKIN DAMAGE NOS 04/07/2008 01/02/2015 Other seborrheic keratosis 04/07/2008 0 01/02/2015 SOLAR LENTIGINES///DYSCHROMIA OTHER 04/07/2008 01/02/2015 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 01/02/2015 Special screening for malign ant neoplasms, colon 08/11/2005 01/02/2015 Follow-up examination following surgery 10/31/2003 01/02/2015 Injury to ulnar nerve 09/21/20032022 Diverticulosis 06/16/2023 History of anemia 06/16/2023 Lumbar stenosis 06/16/2023 Overview: MRI 2019 , severe LCS L2-3 Osteoarthritis, generalized 06/16/2023 USP current use of ant icoagulants with INR goal of 2.0-3.0 09/15/2022 Nocturnal hypoxemia 08/29/20 Overview: On oxygen at night PVC's (premature ventricular contractions) 06/16/2023 RBBB 06/16/2023 documented as of this encounter (statuses as of 08/01/2023) [facility]02-27-2023 History of Past illness Narrative* Problem Noted Date Diagnosed Date Resolved Date Nocturnal hypoxemia 01/05/2023 06/12/20 Overview: On oxygen at night Myasthenia gravis 01/05/2023 03/25/2023 Overview: Last seen by neurology July 29, 2017. 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/2022 06/16/2023 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 08/22/2022 06/16/2023 CHF (congestive heart failur e), NYHA class I, acute on chronic, diastolic 07/04/2022 08/26/2022 Benign hypertension 08/14/2021 06/16/20 Status post ligation of left atrial appendage 07/10/2006/16/2023 Overview: At time of CABG PAF (paroxysmal atrial fibrillation) 11/09/2020 07/23/2023 Overview: Post CABG atrial fibrillation Macrocytosis 07/11/2020 06/16/2023 Hx of colonoscopy 09/27/2015 06/16/2023 Overview: no reported polyps per patient recollection S/P shoulder replacement 02/08/201506/2023 Xerosis cutis 12/14/2012 01/02/2015 Pruritus 12/14/2012 01/02/2015 Actinic skin damage 12/14/2012 01/02/20 15 Solar lentigo 12/14/2012 01/02/2015 Myasthenia gravis 04/19/2012 09/15/2022 Back pain 01/09/2012 06/16/2023 Viral warts, unspecified 09/29/2010 Irritated//Inflamed Seborrheic Keratosis 09/29/2010 01/02/2015 Insomnia 08/13/2010 06/16/2023 Erectile dysfunction 08/13/2010 023 Follow-up examination, follo wing unspecified surgery 06/11/2009 08/14/2009 Osteoarthrosis, unspecified whether generalized or localized, other specified sites 12/14/2008 06/16/2023 Primary localized osteoarthr osis, shoulder region 09/21/2008 06/16/2023 Overview: rt. shoulder ACTINIC DAMAGE///SOLAR SKIN DAMAGE NOS 04/07/2008 01/02/2015 Dermatitis due to cosmetics 04/07/2008 01/02/2015 ACTINIC DAMAGE///CHR SOLAR SKIN DAMAGE NOS 04/07/2008 01/02/2015 Other seborrheic keratosis 04/07/2008 0 01/02/2015 SOLAR LENTIGINES///DYSCHROMIA OTHER 04/07/2008 01/02/2015 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 01/02/2015 Special screening for malign ant neoplasms, colon 08/11/2005 01/02/2015 Follow-up examination following surgery 10/31/2003 01/02/2015 Injury to ulnar nerve 09/21/20032022 Diverticulosis 06/16/2023 History of anemia 06/16/2023 Lumbar stenosis 06/16/2023 Overview: MRI 2019 , severe LCS L2-3 Osteoarthritis, generalized 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/2022 06/16/2023 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 08/22/2022 06/16/2023 CHF (congestive heart failur e), NYHA class I, acute on chronic, diastolic 07/04/2022 08/26/2022 Benign hypertension 08/14/2021 06/16/20 23 Status post ligation of left atrial appendage 07/10/2006/16/2023 Overview: At time of CABG PAF (paroxysmal atrial fibrillation) 11/09/2020 07/23/2023 Overview: Post CABG atrial fibrillation Macrocytosis 07/11/2020 06/16/2023 Hx of colonoscopy 09/27/2015 06/16/2023 Overview: no reported polyps per patient recollection S/P shoulder replacement 02/08/201506/2023 Xerosis cutis 12/14/2012 01/02/2015 Pruritus 12/14/2012 01/02/2015 Actinic skin damage 12/14/2012 01/02/20 15 Solar lentigo 12/14/2012 01/02/2015 Myasthenia gravis 04/19/2012 09/15/2022 Back pain 01/09/2012 06/16/2023 Viral warts, unspecified 09/29/2010 Irritated//Inflamed Seborrheic Keratosis 09/29/2010 01/02/2015 Insomnia 08/13/2010 06/16/2023 Erectile dysfunction 08/13/2010 023 Follow-up examination, follo wing unspecified surgery 06/11/2009 08/14/2009 Osteoarthrosis, unspecified whether generalized or localized, other specified sites 12/14/2008 06/16/2023 Primary localized osteoarthr osis, shoulder region 09/21/2008 06/16/2023 Overview: rt. shoulder ACTINIC DAMAGE///SOLAR SKIN DAMAGE NOS 04/07/2008 01/02/2015 Dermatitis due to cosmetics 04/07/2008 01/02/2015 ACTINIC DAMAGE///CHR SOLAR SKIN DAMAGE NOS 04/07/2008 01/02/2015 Other seborrheic keratosis 04/07/2008 0 01/02/2015 SOLAR LENTIGINES///DYSCHROMIA OTHER 04/07/2008 01/02/2015 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 01/02/2015 Special screening for malign ant neoplasms, colon 08/11/2005 01/02/2015 Follow-up examination following surgery 10/31/2003 01/02/2015 Injury to ulnar nerve 09/21/20032022 Diverticulosis 06/16/2023 History of anemia 06/16/2023 Lumbar stenosis 06/16/2023 Overview: MRI 2019 , severe LCS L2-3 Osteoarthritis, generalized 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 06/16/2023 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 08/22/2022 06/16/2023 CHF (congestive heart failur e), NYHA class I, acute on chronic, diastolic 07/04/2022 08/26/2022 Benign hypertension 08/14/2021 06/16/20 23 Status post ligation of left atrial appendage 07/10/2006/16/2023 Overview: At time of CABG PAF (paroxysmal atrial fibrillation) 11/09/2020 07/23/2023 Overview: Post CABG atrial fibrillation Macrocytosis 07/11/2020 06/16/2023 Hx of colonoscopy 09/27/2015 06/16/2023 Overview: no reported polyps per patient recollection S/P shoulder replacement 02/08/201506/2023 Xerosis cutis 12/14/2012 01/02/2015 Pruritus 12/14/2012 01/02/2015 Actinic skin damage 12/14/2012 01/02/20 15 Solar lentigo 12/14/2012 01/02/2015 Myasthenia gravis 04/19/2012 09/15/2022 Back pain 01/09/2012 06/16/2023 Viral warts, unspecified 09/29/2010 Irritated//Inflamed Seborrheic Keratosis 09/29/2010 01/02/2015 Insomnia 08/13/2010 06/16/2023 Erectile dysfunction 08/13/2010 023 Follow-up examination, follo wing unspecified surgery 06/11/2009 08/14/2009 Osteoarthrosis, unspecified whether generalized or localized, other specified sites 12/14/2008 06/16/2023 Primary localized osteoarthr osis, shoulder region 09/21/2008 06/16/2023 Overview: rt. shoulder ACTINIC DAMAGE///SOLAR SKIN DAMAGE NOS 04/07/2008 01/02/2015 Dermatitis due to cosmetics 04/07/2008 01/02/2015 ACTINIC DAMAGE///CHR SOLAR SKIN DAMAGE NOS 04/07/2008 01/02/2015 Other seborrheic keratosis 04/07/2008 0 01/02/2015 SOLAR LENTIGINES///DYSCHROMIA OTHER 04/07/2008 01/02/2015 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 01/02/2015 Special screening for malign ant neoplasms, colon 08/11/2005 01/02/2015 Follow-up examination following surgery 10/31/2003 01/02/2015 Injury to ulnar nerve 09/21/20032022 Diverticulosis 06/16/2023 History of anemia 06/16/2023 Lumbar stenosis 06/16/2023 Overview: MRI 2019 , severe LCS L2-3 Osteoarthritis, generalized 06/16/2023 USP current use of ant icoagulants with INR goal of 2.0-3.0 09/15/2022 Nocturnal hypoxemia 08/29/20 Overview: On oxygen at night PVC's (premature ventricular contractions) 06/16/2023 RBBB 06/16/2023 documented as of this encounter (statuses as of 09/08/2023) [facility] History of Past illness Narrative* Problem Noted Date Diagnosed Date Resolved Date Nocturnal hypoxemia 01/05/2023 06/12/20 Overview: On oxygen at night Myasthenia gravis 01/05/2023 03/25/2023 Overview: Last seen by neurology July 29, 2017. 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 06/16/2023 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 08/22/2022 06/16/2023 CHF (congestive heart failur e), NYHA class I, acute on chronic, diastolic 07/04/2022 08/26/2022 Benign hypertension 08/14/2021 06/16/20 Status post ligation of left atrial appendage 07/10/2006/16/2023 Overview: At time of CABG PAF (paroxysmal atrial fibrillation) 11/09/2020 07/23/2023 Overview: Post CABG atrial fibrillation Macrocytosis 07/11/2020 06/16/2023 Hx of colonoscopy 09/27/2015 06/16/2023 Overview: no reported polyps per patient recollection S/P shoulder replacement 02/08/201506/2023 Xerosis cutis 12/14/2012 01/02/2015 Pruritus 12/14/2012 01/02/2015 Actinic skin damage 12/14/2012 01/02/20 15 Solar lentigo 12/14/2012 01/02/2015 Myasthenia gravis 04/19/2012 09/15/2022 Back pain 01/09/2012 06/16/2023 Viral warts, unspecified 09/29/2010 Irritated//Inflamed Seborrheic Keratosis 09/29/2010 01/02/2015 Insomnia 08/13/2010 06/16/2023 Erectile dysfunction 08/13/2010 023 Follow-up examination, follo wing unspecified surgery 06/11/2009 08/14/2009 Osteoarthrosis, unspecified whether generalized or localized, other specified sites 12/14/2008 06/16/2023 Primary localized osteoarthr osis, shoulder region 09/21/2008 06/16/2023 Overview: rt. shoulder ACTINIC DAMAGE///SOLAR SKIN DAMAGE NOS 04/07/2008 01/02/2015 Dermatitis due to cosmetics 04/07/2008 01/02/2015 ACTINIC DAMAGE///CHR SOLAR SKIN DAMAGE NOS 04/07/2008 01/02/2015 Other seborrheic keratosis 04/07/2008 0 01/02/2015 SOLAR LENTIGINES///DYSCHROMIA OTHER 04/07/2008 01/02/2015 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 01/02/2015 Special screening for malign ant neoplasms, colon 08/11/2005 01/02/2015 Follow-up examination following surgery 10/31/2003 01/02/2015 Injury to ulnar nerve 09/21/20032022 Diverticulosis 06/16/2023 History of anemia 06/16/2023 Lumbar stenosis 06/16/2023 Overview: MRI 2019 , severe LCS L2-3 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 06/16/2023 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 08/22/2022 06/16/2023 CHF (congestive heart failur e), NYHA class I, acute on chronic, diastolic 07/04/2022 08/26/2022 Benign hypertension 08/14/2021 06/16/20 Status post ligation of left atrial appendage 07/10/2006/16/2023 Overview: At time of CABG PAF (paroxysmal atrial fibrillation) 11/09/2020 07/23/2023 Overview: Post CABG atrial fibrillation Macrocytosis 07/11/2020 06/16/2023 Hx of colonoscopy 09/27/2015 06/16/2023 Overview: no reported polyps per patient recollection S/P shoulder replacement 02/08/201506/2023 Xerosis cutis 12/14/2012 01/02/2015 Pruritus 12/14/2012 01/02/2015 Actinic skin damage 12/14/2012 01/02/20 15 Solar lentigo 12/14/2012 01/02/2015 Myasthenia gravis 04/19/2012 09/15/2022 Back pain 01/09/2012 06/16/2023 Viral warts, unspecified 09/29/2010 Irritated//Inflamed Seborrheic Keratosis 09/29/2010 01/02/2015 Insomnia 08/13/2010 06/16/2023 Erectile dysfunction 08/13/2010 023 Follow-up examination, follo wing unspecified surgery 06/11/2009 08/14/2009 Osteoarthrosis, unspecified whether generalized or localized, other specified sites 12/14/2008 06/16/2023 Primary localized osteoarthr osis, shoulder region 09/21/2008 06/16/2023 Overview: rt. shoulder ACTINIC DAMAGE///SOLAR SKIN DAMAGE NOS 04/07/2008 01/02/2015 Dermatitis due to cosmetics 04/07/2008 01/02/2015 ACTINIC DAMAGE///CHR SOLAR SKIN DAMAGE NOS 04/07/2008 01/02/2015 Other seborrheic keratosis 04/07/2008 0 01/02/2015 SOLAR LENTIGINES///DYSCHROMIA OTHER 04/07/2008 01/02/2015 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 01/02/2015 Special screening for malign ant neoplasms, colon 08/11/2005 01/02/2015 Follow-up examination following surgery 10/31/2003 01/02/2015 Injury to ulnar nerve 09/21/20032022 Diverticulosis 06/16/2023 History of anemia 06/16/2023 Lumbar stenosis 06/16/2023 Overview: MRI 2019 , severe LCS L2-3 Osteoarthritis, generalized 06/16/2023 USP current use of ant icoagulants with INR goal of 2.0-3.0 09/15/2022 Nocturnal hypoxemia 08/29/20 Overview: On oxygen at night PVC's (premature ventricular contractions) 06/16/2023 RBBB 06/16/2023 documented as of this encounter (statuses as of 09/13/2023) [facility] History of Past illness Narrative* Problem Noted Date Diagnosed Date Resolved Date Nocturnal hypoxemia 01/05/2023 06/12/20 Overview: On oxygen at night Myasthenia gravis 01/05/2023 03/25/2023 Overview: Last seen by neurology July 29, 2017. 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 06/16/2023 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 08/22/2022 06/16/2023 CHF (congestive heart failur e), NYHA class I, acute on chronic, diastolic 07/04/2022 08/26/2022 Benign hypertension 08/14/2021 06/16/20 23 Status post ligation of left atrial appendage 07/10/2006/16/2023 Overview: At time of CABG PAF (paroxysmal atrial fibrillation) 11/09/2020 07/23/2023 Overview: Post CABG atrial fibrillation Macrocytosis 07/11/2020 06/16/2023 Hx of colonoscopy 09/27/2015 06/16/2023 Overview: no reported polyps per patient recollection S/P shoulder replacement 02/08/201506/2023 Xerosis cutis 12/14/2012 01/02/2015 Pruritus 12/14/2012 01/02/2015 Actinic skin damage 12/14/2012 01/02/20 15 Solar lentigo 12/14/2012 01/02/2015 Myasthenia gravis 04/19/2012 09/15/2022 Back pain 01/09/2012 06/16/2023 Viral warts, unspecified 09/29/2010 Irritated//Inflamed Seborrheic Keratosis 09/29/2010 01/02/2015 Insomnia 08/13/2010 06/16/2023 Erectile dysfunction 08/13/2010 023 Follow-up examination, follo wing unspecified surgery 06/11/2009 08/14/2009 Osteoarthrosis, unspecified whether generalized or localized, other specified sites 12/14/2008 06/16/2023 Primary localized osteoarthr osis, shoulder region 09/21/2008 06/16/2023 Overview: rt. shoulder ACTINIC DAMAGE///SOLAR SKIN DAMAGE NOS 04/07/2008 01/02/2015 Dermatitis due to cosmetics 04/07/2008 01/02/2015 ACTINIC DAMAGE///CHR SOLAR SKIN DAMAGE NOS 04/07/2008 01/02/2015 Other seborrheic keratosis 04/07/2008 0 01/02/2015 SOLAR LENTIGINES///DYSCHROMIA OTHER 04/07/2008 01/02/2015 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 01/02/2015 Special screening for malign ant neoplasms, colon 08/11/2005 01/02/2015 Follow-up examination following surgery 10/31/2003 01/02/2015 Injury to ulnar nerve 09/21/20032022 Diverticulosis 06/16/2023 History of anemia 06/16/2023 Lumbar stenosis 06/16/2023 Overview: MRI 2019 , severe LCS L2-3 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 06/16/2023 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 08/22/2022 06/16/2023 CHF (congestive heart failur e), NYHA class I, acute on chronic, diastolic 07/04/2022 08/26/2022 Benign hypertension 08/14/2021 06/16/20 23 Status post ligation of left atrial appendage 07/10/20 21 06/16/2023 Overview: At time of CABG PAF (paroxysmal atrial fibrillation) 11/09/2020 07/23/2023 Overview: Post CABG atrial fibrillation Macrocytosis 07/11/2020 06/16/2023 Hx of colonoscopy 09/27/2015 06/16/2023 Overview: no reported polyps per patient recollection S/P shoulder replacement 02/08/201506/2023 Xerosis cutis 12/14/2012 01/02/2015 Pruritus 12/14/2012 01/02/2015 Actinic skin damage 12/14/2012 01/02/20 15 Solar lentigo 12/14/2012 01/02/2015 Myasthenia gravis 04/19/2012 09/15/2022 Back pain 01/09/2012 06/16/2023 Viral warts, unspecified 09/29/2010 Irritated//Inflamed Seborrheic Keratosis 09/29/2010 01/02/2015 Insomnia 08/13/2010 06/16/2023 Erectile dysfunction 08/13/2010 023 Follow-up examination, follo wing unspecified surgery 06/11/2009 08/14/2009 Osteoarthrosis, unspecified whether generalized or localized, other specified sites 12/14/2008 06/16/2023 Primary localized osteoarthr osis, shoulder region 09/21/2008 06/16/2023 Overview: rt. shoulder ACTINIC DAMAGE///SOLAR SKIN DAMAGE NOS 04/07/2008 01/02/2015 Dermatitis due to cosmetics 04/07/2008 01/02/2015 ACTINIC DAMAGE///CHR SOLAR SKIN DAMAGE NOS 04/07/2008 01/02/2015 Other seborrheic keratosis 04/07/2008 0 01/02/2015 SOLAR LENTIGINES///DYSCHROMIA OTHER 04/07/2008 01/02/2015 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 01/02/2015 Special screening for malign ant neoplasms, colon 08/11/2005 01/02/2015 Follow-up examination following surgery 10/31/2003 01/02/2015 Injury to ulnar nerve 09/21/20032022 Diverticulosis 06/16/2023 History of anemia 06/16/2023 Lumbar stenosis 06/16/2023 Overview: MRI 2019 , severe LCS L2-3 Osteoarthritis, generalized 06/16/2023 USP current use of ant icoagulants with INR goal of 2.0-3.0 09/15/2022 Nocturnal hypoxemia 08/29/20 Overview: On oxygen at night PVC's (premature ventricular contractions) 06/16/2023 RBBB 06/16/2023 documented as of this encounter (statuses as of 09/30/2023) [facility]02-27-[facility] History of Past illness Narrative* Problem Noted Date Diagnosed Date Resolved Date Nocturnal hypoxemia 01/05/2023 06/12/20 Overview: On oxygen at night Myasthenia gravis 01/05/2023 03/25/2023 Overview: Last seen by neurology July 29, 2017. 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 06/16/2023 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 08/22/2022 06/16/2023 CHF (congestive heart failur e), NYHA class I, acute on chronic, diastolic 07/04/2022 08/26/2022 Benign hypertension 08/14/2021 06/16/20 Status post ligation of left atrial appendage 07/10/2006/16/2023 Overview: At time of CABG PAF (paroxysmal atrial fibrillation) 11/09/2020 07/23/2023 Overview: Post CABG atrial fibrillation Macrocytosis 07/11/2020 06/16/2023 Hx of colonoscopy 09/27/2015 06/16/2023 Overview: no reported polyps per patient recollection S/P shoulder replacement 02/08/201506/2023 Xerosis cutis 12/14/2012 01/02/2015 Pruritus 12/14/2012 01/02/2015 Actinic skin damage 12/14/2012 01/02/20 15 Solar lentigo 12/14/2012 01/02/2015 Myasthenia gravis 04/19/2012 09/15/2022 Back pain 01/09/2012 06/16/2023 Viral warts, unspecified 09/29/2010 Irritated//Inflamed Seborrheic Keratosis 09/29/2010 01/02/2015 Insomnia 08/13/2010 06/16/2023 Erectile dysfunction 08/13/2010 023 Follow-up examination, follo wing unspecified surgery 06/11/2009 08/14/2009 Osteoarthrosis, unspecified whether generalized or localized, other specified sites 12/14/2008 06/16/2023 Primary localized osteoarthr osis, shoulder region 09/21/2008 06/16/2023 Overview: rt. shoulder ACTINIC DAMAGE///SOLAR SKIN DAMAGE NOS 04/07/2008 01/02/2015 Dermatitis due to cosmetics 04/07/2008 01/02/2015 ACTINIC DAMAGE///CHR SOLAR SKIN DAMAGE NOS 04/07/2008 01/02/2015 Other seborrheic keratosis 04/07/2008 0 01/02/2015 SOLAR LENTIGINES///DYSCHROMIA OTHER 04/07/2008 01/02/2015 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 01/02/2015 Special screening for malign ant neoplasms, colon 08/11/2005 01/02/2015 Follow-up examination following surgery 10/31/2003 01/02/2015 Injury to ulnar nerve 09/21/20032022 Diverticulosis 06/16/2023 History of anemia 06/16/2023 Lumbar stenosis 06/16/2023 Overview: MRI 2019 , severe LCS L2-3 Osteoarthritis, generalized 06/16/2023 USP current use of ant icoagulants with INR goal of 2.0-3.0 09/15/2022 Nocturnal hypoxemia 08/29/20 Overview: On oxygen at night PVC's (premature ventricular contractions) 06/16/2023 RBBB 06/16/2023 documented as of this encounter (statuses as of 09/30/2023) [facility]02-27-[facility] History of Past illness Narrative* Problem Noted Date Diagnosed Date Resolved Date Nocturnal hypoxemia 01/05/2023 06/12/20 Overview: On oxygen at night Myasthenia gravis 01/05/2023 03/25/2023 Overview: Last seen by neurology July 29, 2017. 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 06/16/2023 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 08/22/2022 06/16/2023 CHF (congestive heart failur e), NYHA class I, acute on chronic, diastolic 07/04/2022 08/26/2022 Benign hypertension 08/14/2021 06/16/20 Status post ligation of left atrial appendage 07/10/2006/16/2023 Overview: At time of CABG PAF (paroxysmal atrial fibrillation) 11/09/2020 07/23/2023 Overview: Post CABG atrial fibrillation Macrocytosis 07/11/2020 06/16/2023 Hx of colonoscopy 09/27/2015 06/16/2023 Overview: no reported polyps per patient recollection S/P shoulder replacement 02/08/201506/2023 Xerosis cutis 12/14/2012 01/02/2015 Pruritus 12/14/2012 01/02/2015 Actinic skin damage 12/14/2012 01/02/20 15 Solar lentigo 12/14/2012 01/02/2015 Myasthenia gravis 04/19/2012 09/15/2022 Back pain 01/09/2012 06/16/2023 Viral warts, unspecified 09/29/2010 Irritated//Inflamed Seborrheic Keratosis 09/29/2010 01/02/2015 Insomnia 08/13/2010 06/16/2023 Erectile dysfunction 08/13/2010 023 Follow-up examination, follo wing unspecified surgery 06/11/2009 08/14/2009 Osteoarthrosis, unspecified whether generalized or localized, other specified sites 12/14/2008 06/16/2023 Primary localized osteoarthr osis, shoulder region 09/21/2008 06/16/2023 Overview: rt. shoulder ACTINIC DAMAGE///SOLAR SKIN DAMAGE NOS 04/07/2008 01/02/2015 Dermatitis due to cosmetics 04/07/2008 01/02/2015 ACTINIC DAMAGE///CHR SOLAR SKIN DAMAGE NOS 04/07/2008 01/02/2015 Other seborrheic keratosis 04/07/2008 0 01/02/2015 SOLAR LENTIGINES///DYSCHROMIA OTHER 04/07/2008 01/02/2015 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 01/02/2015 Special screening for malign ant neoplasms, colon 08/11/2005 01/02/2015 Follow-up examination following surgery 10/31/2003 01/02/2015 Injury to ulnar nerve 09/21/20032022 Diverticulosis 06/16/2023 History of anemia 06/16/2023 Lumbar stenosis 06/16/2023 Overview: MRI 2019 , severe LCS L2-3 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 06/16/2023 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 08/22/2022 06/16/2023 CHF (congestive heart failur e), NYHA class I, acute on chronic, diastolic 07/04/2022 08/26/2022 Benign hypertension 08/14/2021 06/16/20 23 Status post ligation of left atrial appendage 07/10/20 21 06/16/2023 Overview: At time of CABG PAF (paroxysmal atrial fibrillation) 11/09/2020 07/23/2023 Overview: Post CABG atrial fibrillation Macrocytosis 07/11/2020 06/16/2023 Hx of colonoscopy 09/27/2015 06/16/2023 Overview: no reported polyps per patient recollection S/P shoulder replacement 02/08/201506/2023 Xerosis cutis 12/14/2012 01/02/2015 Pruritus 12/14/2012 01/02/2015 Actinic skin damage 12/14/2012 01/02/20 15 Solar lentigo 12/14/2012 01/02/2015 Myasthenia gravis 04/19/2012 09/15/2022 Back pain 01/09/2012 06/16/2023 Viral warts, unspecified 09/29/2010 Irritated//Inflamed Seborrheic Keratosis 09/29/2010 01/02/2015 Insomnia 08/13/2010 06/16/2023 Erectile dysfunction 08/13/2010 023 Follow-up examination, follo wing unspecified surgery 06/11/2009 08/14/2009 Osteoarthrosis, unspecified whether generalized or localized, other specified sites 12/14/2008 06/16/2023 Primary localized osteoarthr osis, shoulder region 09/21/2008 06/16/2023 Overview: rt. shoulder ACTINIC DAMAGE///SOLAR SKIN DAMAGE NOS 04/07/2008 01/02/2015 Dermatitis due to cosmetics 04/07/2008 01/02/2015 ACTINIC DAMAGE///CHR SOLAR SKIN DAMAGE NOS 04/07/2008 01/02/2015 Other seborrheic keratosis 04/07/2008 0 01/02/2015 SOLAR LENTIGINES///DYSCHROMIA OTHER 04/07/2008 01/02/2015 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 01/02/2015 Special screening for malign ant neoplasms, colon 08/11/2005 01/02/2015 Follow-up examination following surgery 10/31/2003 01/02/2015 Injury to ulnar nerve 09/21/20032022 Diverticulosis 06/16/2023 History of anemia 06/16/2023 Lumbar stenosis 06/16/2023 Overview: MRI 2019 , severe LCS L2-3 Osteoarthritis, generalized 06/16/2023 USP current use of ant icoagulants with INR goal of 2.0-3.0 09/15/2022 Nocturnal hypoxemia 08/29/20 22 Overview: On oxygen at night PVC's (premature ventricular contractions) 06/16/2023 RBBB 06/16/2023 documented as of this encounter (statuses as of 10/07/2023) [facility]02[facility] History of Past illness Narrative* Problem Noted Date Diagnosed Date Resolved Date Nocturnal hypoxemia 01/05/2023 06/12/20 Overview: On oxygen at night Myasthenia gravis 01/05/2023 03/25/2023 Overview: Last seen by neurology July 29, 2017. 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 06/16/2023 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 08/22/2022 06/16/2023 CHF (congestive heart failur e), NYHA class I, acute on chronic, diastolic 07/04/2022 08/26/2022 Benign hypertension 08/14/2021 06/16/20 23 Status post ligation of left atrial appendage 07/10/2006/16/2023 Overview: At time of CABG PAF (paroxysmal atrial fibrillation) 11/09/2020 07/23/2023 Overview: Post CABG atrial fibrillation Macrocytosis 07/11/2020 06/16/2023 Hx of colonoscopy 09/27/2015 06/16/2023 Overview: no reported polyps per patient recollection S/P shoulder replacement 02/08/201506/2023 Xerosis cutis 12/14/2012 01/02/2015 Pruritus 12/14/2012 01/02/2015 Actinic skin damage 12/14/2012 01/02/20 15 Solar lentigo 12/14/2012 01/02/2015 Myasthenia gravis 04/19/2012 09/15/2022 Back pain 01/09/2012 06/16/2023 Viral warts, unspecified 09/29/2010 Irritated//Inflamed Seborrheic Keratosis 09/29/2010 01/02/2015 Insomnia 08/13/2010 06/16/2023 Erectile dysfunction 08/13/2010 023 Follow-up examination, follo wing unspecified surgery 06/11/2009 08/14/2009 Osteoarthrosis, unspecified whether generalized or localized, other specified sites 12/14/2008 06/16/2023 Primary localized osteoarthr osis, shoulder region 09/21/2008 06/16/2023 Overview: rt. shoulder ACTINIC DAMAGE///SOLAR SKIN DAMAGE NOS 04/07/2008 01/02/2015 Dermatitis due to cosmetics 04/07/2008 01/02/2015 ACTINIC DAMAGE///CHR SOLAR SKIN DAMAGE NOS 04/07/2008 01/02/2015 Other seborrheic keratosis 04/07/2008 0 01/02/2015 SOLAR LENTIGINES///DYSCHROMIA OTHER 04/07/2008 01/02/2015 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 01/02/2015 Special screening for malign ant neoplasms, colon 08/11/2005 01/02/2015 Follow-up examination following surgery 10/31/2003 01/02/2015 Injury to ulnar nerve 09/21/20032022 Diverticulosis 06/16/2023 History of anemia 06/16/2023 Lumbar stenosis 06/16/2023 Overview: MRI 2019 , severe LCS L2-3 Osteoarthritis, generalized 06/16/2023 USP current use of ant icoagulants with INR goal of 2.0-3.0 09/15/2022 Nocturnal hypoxemia 08/29/20 22 Overview: On oxygen at night PVC's (premature ventricular contractions) 06/16/2023 RBBB 06/16/2023 documented as of this encounter (statuses as of 12/18/2023) [facility] History of Past illness Narrative* Problem Noted Date Diagnosed Date Resolved Date Nocturnal hypoxemia 01/05/2023 06/12/20 23 Overview: On oxygen at night Myasthenia gravis 01/05/2023 03/25/2023 Overview: Last seen by neurology July 29, 2017. 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 06/16/2023 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 08/22/2022 06/16/2023 CHF (congestive heart failur e), NYHA class I, acute on chronic, diastolic 07/04/2022 08/26/2022 Benign hypertension 08/14/2021 06/16/20 23 Status post ligation of left atrial appendage 07/10/20 21 06/16/2023 Overview: At time of CABG PAF (paroxysmal atrial fibrillation) 11/09/2020 07/23/2023 Overview: Post CABG atrial fibrillation Macrocytosis 07/11/2020 06/16/2023 Hx of colonoscopy 09/27/2015 06/16/2023 Overview: no reported polyps per patient recollection S/P shoulder replacement 02/08/201506/2023 Xerosis cutis 12/14/2012 01/02/2015 Pruritus 12/14/2012 01/02/2015 Actinic skin damage 12/14/2012 01/02/20 15 Solar lentigo 12/14/2012 01/02/2015 Myasthenia gravis 04/19/2012 09/15/2022 Back pain 01/09/2012 06/16/2023 Viral warts, unspecified 09/29/2010 Irritated//Inflamed Seborrheic Keratosis 09/29/2010 01/02/2015 Insomnia 08/13/2010 06/16/2023 Erectile dysfunction 08/13/2010 023 Follow-up examination, follo wing unspecified surgery 06/11/2009 08/14/2009 Osteoarthrosis, unspecified whether generalized or localized, other specified sites 12/14/2008 06/16/2023 Primary localized osteoarthr osis, shoulder region 09/21/2008 06/16/2023 Overview: rt. shoulder ACTINIC DAMAGE///SOLAR SKIN DAMAGE NOS 04/07/2008 01/02/2015 Dermatitis due to cosmetics 04/07/2008 01/02/2015 ACTINIC DAMAGE///CHR SOLAR SKIN DAMAGE NOS 04/07/2008 01/02/2015 Other seborrheic keratosis 04/07/2008 0 01/02/2015 SOLAR LENTIGINES///DYSCHROMIA OTHER 04/07/2008 01/02/2015 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 01/02/2015 Special screening for malign ant neoplasms, colon 08/11/2005 01/02/2015 Follow-up examination following surgery 10/31/2003 01/02/2015 Injury to ulnar nerve 09/21/20032022 Diverticulosis 06/16/2023 History of anemia 06/16/2023 Lumbar stenosis 06/16/2023 Overview: MRI 2019 , severe LCS L2-3 Osteoarthritis, generalized 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 06/16/2023 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 08/22/2022 06/16/2023 CHF (congestive heart failur e), NYHA class I, acute on chronic, diastolic 07/04/2022 08/26/2022 Benign hypertension 08/14/2021 06/16/20 23 Status post ligation of left atrial appendage 07/10/2006/16/2023 Overview: At time of CABG PAF (paroxysmal atrial fibrillation) 11/09/2020 07/23/2023 Overview: Post CABG atrial fibrillation Macrocytosis 07/11/2020 06/16/2023 Hx of colonoscopy 09/27/2015 06/16/2023 Overview: no reported polyps per patient recollection S/P shoulder replacement 02/08/201506/2023 Xerosis cutis 12/14/2012 01/02/2015 Pruritus 12/14/2012 01/02/2015 Actinic skin damage 12/14/2012 01/02/20 15 Solar lentigo 12/14/2012 01/02/2015 Myasthenia gravis 04/19/2012 09/15/2022 Back pain 01/09/2012 06/16/2023 Viral warts, unspecified 09/29/2010 Irritated//Inflamed Seborrheic Keratosis 09/29/2010 01/02/2015 Insomnia 08/13/2010 06/16/2023 Erectile dysfunction 08/13/2010 023 Follow-up examination, follo wing unspecified surgery 06/11/2009 08/14/2009 Osteoarthrosis, unspecified whether generalized or localized, other specified sites 12/14/2008 06/16/2023 Primary localized osteoarthr osis, shoulder region 09/21/2008 06/16/2023 Overview: rt. shoulder ACTINIC DAMAGE///SOLAR SKIN DAMAGE NOS 04/07/2008 01/02/2015 Dermatitis due to cosmetics 04/07/2008 01/02/2015 ACTINIC DAMAGE///CHR SOLAR SKIN DAMAGE NOS 04/07/2008 01/02/2015 Other seborrheic keratosis 04/07/2008 0 01/02/2015 SOLAR LENTIGINES///DYSCHROMIA OTHER 04/07/2008 01/02/2015 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 01/02/2015 Special screening for malign ant neoplasms, colon 08/11/2005 01/02/2015 Follow-up examination following surgery 10/31/2003 01/02/2015 Injury to ulnar nerve 09/21/20032022 Diverticulosis 06/16/2023 History of anemia 06/16/2023 Lumbar stenosis 06/16/2023 Overview: MRI 2019 , severe LCS L2-3 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 06/16/2023 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 08/22/2022 06/16/2023 CHF (congestive heart failur e), NYHA class I, acute on chronic, diastolic 07/04/2022 08/26/2022 Benign hypertension 08/14/2021 06/16/20 23 Status post ligation of left atrial appendage 07/10/20 21 06/16/2023 Overview: At time of CABG PAF (paroxysmal atrial fibrillation) 11/09/2020 07/23/2023 Overview: Post CABG atrial fibrillation Macrocytosis 07/11/2020 06/16/2023 Hx of colonoscopy 09/27/2015 06/16/2023 Overview: no reported polyps per patient recollection S/P shoulder replacement 02/08/201506/2023 Xerosis cutis 12/14/2012 01/02/2015 Pruritus 12/14/2012 01/02/2015 Actinic skin damage 12/14/2012 01/02/20 15 Solar lentigo 12/14/2012 01/02/2015 Myasthenia gravis 04/19/2012 09/15/2022 Back pain 01/09/2012 06/16/2023 Viral warts, unspecified 09/29/2010 Irritated//Inflamed Seborrheic Keratosis 09/29/2010 01/02/2015 Insomnia 08/13/2010 06/16/2023 Erectile dysfunction 08/13/2010 023 Follow-up examination, follo wing unspecified surgery 06/11/2009 08/14/2009 Osteoarthrosis, unspecified whether generalized or localized, other specified sites 12/14/2008 06/16/2023 Primary localized osteoarthr osis, shoulder region 09/21/2008 06/16/2023 Overview: rt. shoulder ACTINIC DAMAGE///SOLAR SKIN DAMAGE NOS 04/07/2008 01/02/2015 Dermatitis due to cosmetics 04/07/2008 01/02/2015 ACTINIC DAMAGE///CHR SOLAR SKIN DAMAGE NOS 04/07/2008 01/02/2015 Other seborrheic keratosis 04/07/2008 0 01/02/2015 SOLAR LENTIGINES///DYSCHROMIA OTHER 04/07/2008 01/02/2015 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 01/02/2015 Special screening for malign ant neoplasms, colon 08/11/2005 01/02/2015 Follow-up examination following surgery 10/31/2003 01/02/2015 Injury to ulnar nerve 09/21/20032022 Diverticulosis 06/16/2023 History of anemia 06/16/2023 Lumbar stenosis 06/16/2023 Overview: MRI 2019 , severe LCS L2-3 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; Confirmed Blk below His by His Bundle Electrogram Symptomatic bradycardia 09/15/2022 11/1 Malnutrition of moderate degree 09/05/2022 12/24/2023 Acute ischemic stroke 08/26/20222022 Vertebral artery occlusion, left 08/25/2022 06/16/2023 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 08/22/2022 06/16/2023 CHF (congestive heart failur e), NYHA class I, acute on chronic, diastolic 07/04/2022 08/26/2022 Benign hypertension 08/14/2021 06/16/20 23 Status post ligation of left atrial appendage 07/10/20 21 06/16/2023 Overview: At time of CABG PAF (paroxysmal atrial fibrillation) 11/09/2020 07/23/2023 Overview: Post CABG atrial fibrillation Macrocytosis 07/11/2020 06/16/2023 Hx of colonoscopy 09/27/2015 06/16/2023 Overview: no reported polyps per patient recollection S/P shoulder replacement 02/08/201506/2023 Xerosis cutis 12/14/2012 01/02/2015 Pruritus 12/14/2012 01/02/2015 Actinic skin damage 12/14/2012 01/02/20 15 Solar lentigo 12/14/2012 01/02/2015 Myasthenia gravis 04/19/2012 09/15/2022 Back pain 01/09/2012 06/16/2023 Viral warts, unspecified 09/29/2010 Irritated//Inflamed Seborrheic Keratosis 09/29/2010 01/02/2015 Insomnia 08/13/2010 06/16/2023 Erectile dysfunction 08/13/2010 023 Follow-up examination, follo wing unspecified surgery 06/11/2009 08/14/2009 Osteoarthrosis, unspecified whether generalized or localized, other specified sites 12/14/2008 06/16/2023 Primary localized osteoarthr osis, shoulder region 09/21/2008 06/16/2023 Overview: rt. shoulder ACTINIC DAMAGE///SOLAR SKIN DAMAGE NOS 04/07/2008 01/02/2015 Dermatitis due to cosmetics 04/07/2008 01/02/2015 ACTINIC DAMAGE///CHR SOLAR SKIN DAMAGE NOS 04/07/2008 01/02/2015 Other seborrheic keratosis 04/07/2008 0 01/02/2015 SOLAR LENTIGINES///DYSCHROMIA OTHER 04/07/2008 01/02/2015 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 01/02/2015 Special screening for malign ant neoplasms, colon 08/11/2005 01/02/2015 Follow-up examination following surgery 10/31/2003 01/02/2015 Injury to ulnar nerve 09/21/20032022 Diverticulosis 06/16/2023 History of anemia 06/16/2023 Lumbar stenosis 06/16/2023 Overview: MRI 2019 , severe LCS L2-3 Osteoarthritis, generalized 06/16/2023 USP current use of ant icoagulants with INR goal of 2.0-3.0 09/15/2022 Nocturnal hypoxemia 08/29/20 22 Overview: On oxygen at night PVC's (premature ventricular contractions) 06/16/2023 RBBB 06/16/2023 documented as of this encounter (statuses as of 12/24/2023) [facility]02-[facility] History of Past illness Narrative* Problem Noted Date Diagnosed Date Resolved Date Nocturnal hypoxemia 01/05/2023 06/12/20 Overview: On oxygen at night Myasthenia gravis 01/05/2023 03/25/2023 Overview: Last seen by neurology July 29, 2017. 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; Confirmed Blk below His by His Bundle Electrogram Symptomatic bradycardia 09/15/2022 11 Malnutrition of moderate degree 09/05/2022 12/24/2023 Acute ischemic stroke 08/26/20222022 Vertebral artery occlusion, left 08/25/2022 06/16/2023 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 08/22/2022 06/16/2023 CHF (congestive heart failur e), NYHA class I, acute on chronic, diastolic 07/04/2022 08/26/2022 Benign hypertension 08/14/2021 06/16/20 23 Status post ligation of left atrial appendage 07/10/2006/16/2023 Overview: At time of CABG PAF (paroxysmal atrial fibrillation) 11/09/2020 07/23/2023 Overview: Post CABG atrial fibrillation Macrocytosis 07/11/2020 06/16/2023 Hx of colonoscopy 09/27/2015 06/16/2023 Overview: no reported polyps per patient recollection S/P shoulder replacement 02/08/201506/2023 Xerosis cutis 12/14/2012 01/02/2015 Pruritus 12/14/2012 01/02/2015 Actinic skin damage 12/14/2012 01/02/20 15 Solar lentigo 12/14/2012 01/02/2015 Myasthenia gravis 04/19/2012 09/15/2022 Back pain 01/09/2012 06/16/2023 Viral warts, unspecified 09/29/2010 Irritated//Inflamed Seborrheic Keratosis 09/29/2010 01/02/2015 Insomnia 08/13/2010 06/16/2023 Erectile dysfunction 08/13/2010 023 Follow-up examination, follo wing unspecified surgery 06/11/2009 08/14/2009 Osteoarthrosis, unspecified whether generalized or localized, other specified sites 12/14/2008 06/16/2023 Primary localized osteoarthr osis, shoulder region 09/21/2008 06/16/2023 Overview: rt. shoulder ACTINIC DAMAGE///SOLAR SKIN DAMAGE NOS 04/07/2008 01/02/2015 Dermatitis due to cosmetics 04/07/2008 01/02/2015 ACTINIC DAMAGE///CHR SOLAR SKIN DAMAGE NOS 04/07/2008 01/02/2015 Other seborrheic keratosis 04/07/2008 0 01/02/2015 SOLAR LENTIGINES///DYSCHROMIA OTHER 04/07/2008 01/02/2015 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 01/02/2015 Special screening for malign ant neoplasms, colon 08/11/2005 01/02/2015 Follow-up examination following surgery 10/31/2003 01/02/2015 Injury to ulnar nerve 09/21/20032022 Diverticulosis 06/16/2023 History of anemia 06/16/2023 Lumbar stenosis 06/16/2023 Overview: MRI 2019 , severe LCS L2-3 Osteoarthritis, generalized 06/16/2023 USP current use of ant icoagulants with INR goal of 2.0-3.0 09/15/2022 Nocturnal hypoxemia 08/29/20 Overview: On oxygen at night PVC's (premature ventricular contractions) 06/16/2023 RBBB 06/16/2023 documented as of this encounter (statuses as of 12/24/2023) [facility]02-27-[facility] History of Past illness Narrative* Problem Noted Date Diagnosed Date Resolved Date Nocturnal hypoxemia 01/05/2023 06/12/20 Overview: On oxygen at night Myasthenia gravis 01/05/2023 03/25/2023 Overview: Last seen by neurology July 29, 2017. 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; Confirmed Blk below His by His Bundle Electrogram Symptomatic bradycardia 09/15/202209/09 Malnutrition of moderate degree 09/05/2022 12/24/2023 Acute ischemic stroke 08/26/20222022 Vertebral artery occlusion, left 08/25/2022 06/16/2023 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 08/22/2022 06/16/2023 CHF (congestive heart failur e), NYHA class I, acute on chronic, diastolic 07/04/2022 08/26/2022 Benign hypertension 08/14/2021 06/16/20 Status post ligation of left atrial appendage 07/10/2006/16/2023 Overview: At time of CABG PAF (paroxysmal atrial fibrillation) 11/09/2020 07/23/2023 Overview: Post CABG atrial fibrillation Macrocytosis 07/11/2020 06/16/2023 Hx of colonoscopy 09/27/2015 06/16/2023 Overview: no reported polyps per patient recollection S/P shoulder replacement 02/08/201506/2023 Xerosis cutis 12/14/2012 01/02/2015 Pruritus 12/14/2012 01/02/2015 Actinic skin damage 12/14/2012 01/02/20 15 Solar lentigo 12/14/2012 01/02/2015 Myasthenia gravis 04/19/2012 09/15/2022 Back pain 01/09/2012 06/16/2023 Viral warts, unspecified 09/29/2010 Irritated//Inflamed Seborrheic Keratosis 09/29/2010 01/02/2015 Insomnia 08/13/2010 06/16/2023 Erectile dysfunction 08/13/2010 023 Follow-up examination, follo wing unspecified surgery 06/11/2009 08/14/2009 Osteoarthrosis, unspecified whether generalized or localized, other specified sites 12/14/2008 06/16/2023 Primary localized osteoarthr osis, shoulder region 09/21/2008 06/16/2023 Overview: rt. shoulder ACTINIC DAMAGE///SOLAR SKIN DAMAGE NOS 04/07/2008 01/02/2015 Dermatitis due to cosmetics 04/07/2008 01/02/2015 ACTINIC DAMAGE///CHR SOLAR SKIN DAMAGE NOS 04/07/2008 01/02/2015 Other seborrheic keratosis 04/07/2008 0 01/02/2015 SOLAR LENTIGINES///DYSCHROMIA OTHER 04/07/2008 01/02/2015 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 01/02/2015 Special screening for malign ant neoplasms, colon 08/11/2005 01/02/2015 Follow-up examination following surgery 10/31/2003 01/02/2015 Injury to ulnar nerve 09/21/20032022 Diverticulosis 06/16/2023 History of anemia 06/16/2023 Lumbar stenosis 06/16/2023 Overview: MRI 2019 , severe LCS L2-3 Osteoarthritis, generalized 06/16/2023 USP current use of ant icoagulants with INR goal of 2.0-3.0 09/15/2022 Nocturnal hypoxemia 08/29/20 Overview: On oxygen at night PVC's (premature ventricular contractions) 06/16/2023 RBBB 06/16/2023 documented as of this encounter (statuses as of 01/01/2024) [facility]02-22-2023 Miscellaneous Notes* Telephone Encounter - Lena Cruz RN - 12/31/2022 2:[address] Pruitt's note below refers to 12/30/2022 MyChart Encounter - please refer to that note. Lena Cruz RN * Telephone Encounter - Israel Pruitt DO - 12/31/2022 1:12 PM EST I see nothing to sign here for a mobility device Please assist Appreciate help with this request Israel Pruitt DO * Telephone Encounter - Renuka Pedersenar - 12/15/2022 10:30 AM EST Summary: No assistance open Currently no foundation open for patients diagnosis and can't use copay cards b/c pt has Medicare. I will add patient to list if something does open. * Telephone Encounter - KAITLYNN Staples - 12/15/2022 10:01 AM EST Name: Srini Luis : 1935 [address] ID: [id number] Diagnosis: CML Primary Insurance Provider: [facility] Med Adv Plan Insurance Phone #: [phone] Policy #: [id number] Effective Date of Coverage: 11-09-22 Deductible: Ind: $ 0 Met: Ind: $ 0 Max OOP: Ind: $ 3500 OOP Met: Ind: $ 75 Pays: After Ded: 80% Pays: After OOP: 100 Co-Insurance: 20% Lifetime Maximum: unlimited Possible Foundations: Benefits verified with Radha Jackson. Ref# [id number]. Patient has 20% coinsurance and $3425 remaining in max OOPif any assistance available. KAITLYNN Staples [facility] NoteHNO ID: [id number] Author: Roxy Sanchez RN Service: ? Author Type: Registered Nurse Type: Progress Notes Filed: 12/15/2022 10:49 AM Note Text: Ok to keep port accessed for vidaza treatment per Dr Rowell.[facility]02-06-2023 History of Present illness Narrative* Roxy Sanchez RN - 12/15/2022 10:37 AM EST Ok to keep port accessed for vidaza treatment per Dr Rowell. documented in this [facility]Mer[facility] Instructions* Patient Instructions* Israel Pruitt DO - 12/11/2022 5:04 PM EST 1. I would make sure the patient is avoiding long hot showers to avoid dry skin 2. Moisturize the skin with a hypoallergenic moisturizer such as Aveeno, CeraVe a, Lubriderm, or Cetaphil twice daily 3. Benadryl 25 mg at bedtime but watch for dry mouth dry eyes constipation or urinary retention #4 we will see the patient back in 4 months or sooner as needed 5. Patient is up-to-date on vaccination 6. Any difficulties with respiratory bowel or bladder or any skin issues with the new onset of chemotherapy please call to discuss and help in managing that with hematology 7. Check a weight no less than every 2 days calling if 2 or more pounds of weight gain per day or 5or more pounds of weight gain per week 8. Call with any change in functional status #9 we have labs for the patient to do prior to next visit which we will review during his next encounter. documented in [facility] encounter[facility] History of Present illness Narrative* Israel Pruitt DO - 12/11/2022 4:54 PM EST Patient presents with: Recheck: 3 months F/U HPI: Srini Luis is a 86 year old male who presents to the office today for routine OV with us today The patient is engaged to be to a lady that he is known for 3 years and lives in [place] at [place] as well. Kirsten is the patients fiance Patient denies any dizziness or lightheadedness nor feeling like passing out or blacking out The patients feeling like his breathlessness is about the same in regards to intensity when he is ambulating and walking distances to and from car or around his home. Patient does not have any increase in symptoms when he is out which responding to cold air exposure The patients feeling that his appetite is fine The patients free swallowing difficulties Bowels are fairly good with Miralax ( as needed ) and occasional yogurt No rectal bleeding Bladder is occasionally leaking , and urgent urine sensation . The patients free any dysuria. Waking up for nocturia Walking with a cane , no falls Appetite good Mood is upbeat most of the time Sleep is easily able to start , wakes up in 1 hour , then back to sleep each evening with good l[lengthy sleep time Itching skin nightly Moisturizing nightly No OTC Antihistamine , humidifying air in the home . REVIEW OF SYSTEMS: CONSTITUTIONAL: No fevers, chills, nightsweats, unintended weight loss HEENT: Denies frequent or severe heaches, nasal congestion/sinus symptoms, problematic allergy problems. EYES: No diplopia or blurry vision. CARDIOVASCULAR: No chest pain, palpitations, orthopnea, PND, ankle edema. See HPI above PULM: No dyspnea, unexplained cough. GI: No dysphagia/odynophagia, problematic reflux, constipation, diarrhea, changes in stool habits, hematochezia, melena. See HPI above : No new urinary complaints, including dysuria, gross hematuria or pyuria. See HPI above for details NEURO: No new balance problems, peripheral weakness/paresthesias or numbness of concern. MUSC-SKEL: No new joint pain, swelling, or erythema. See HPI above for details PSY: No concerns regarding depression, anxiety or panic. 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 2017 when he's been off medication Nocturnal hypoxemia On oxygen at night Osteoarthritis, generalized Pacemaker 09/17/2022 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 PAF (paroxysmal atrial fibrillation) ([facility]) 2020 Post CABG atrial fibrillation PVC's (premature ventricular contractions) RBBB Status post ligation of left atrial appendage 07/2021 At time of CABG PAST SURGICAL HISTORY Procedure Laterality Date ANKLE RIGHT OP SURGERY Right 12/18/2020 Dr Arreola [facility] ARTHROPLASTY TOTAL SHOULDER 11/09/2008 right ARTHROSCOPY OF JOINT UNLISTED Elbow right CABG (4) VEIN GRAFTS & ARTERIAL GRAFT(S) 07/21/2021 In [facility] COLONOSCOPY FLX DX W/COLLJ SPEC WHEN PFRMD 09/01/2005 Colonoscopy COLONOSCOPY FLX DX W/COLLJ SPEC WHEN PFRMD 09/27/2015 Colonoscopy PAST SURGICAL HISTORY OF 07/21/2021 Coronary Artery Bypass Graft x 4 REMOVAL OF TONSILS,<12 Y/O S $ DUAL CHMBR PACER [id number] Left 09/17/2022 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 FAMILY HISTORY Problem Relation Age of Onset Heart Mother Heart Father CHF Colon Cancer No Family History Prostate Cancer No Family History Blood Clots No Family History NO PE OR DVT Social History Tobacco Use Smoking status: Former Types: Cigarettes Quit date: 08/11/1989 Years since quittin.3 Smokeless tobacco: Never Tobacco comments: quit 18-19 years ago Vaping Use Vaping Use: Never used Substance Use Topics Alcohol use: Yes Alcohol/week: 12.5 standard drinks Types: 2 Glasses of Wine (5oz), 2 Cans of Beer (12oz), 1 Mixed Drinks per week Comment: 1-2 beers per week Drug use: No ACTIVE PROBLEM LIST 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 Mixed Hyperlipidemia Hypothyroidism Generalized Osteoarthrosis, Unspecified Site Primary Localized Osteoarthrosis, Shoulder Region Osteoarthrosis, Unspecified Whether Generalized Or Localized, Other Specified Sites Spinal Stenosis of Lumbar Region With Neurogenic Claudication Insomnia Erectile Dysfunction Back Pain Essential Hypertension, Benign S/P Shoulder Replacement B12 Deficiency Vitamin D Deficiency Macrocytosis Venous Stasis of Both Lower Extremities Cad (Coronary Artery Disease) Diverticulosis History of Anemia Hx of Cabg Hx of Colonoscopy Hypertension Lumbar Stenosis Status Post Ligation of Left Atrial Appendage Osteoarthritis, Generalized Paf (Paroxysmal Atrial Fibrillation) ([facility]) Pvc's (Premature Ventricular Contractions) Benign Hypertension Rbbb Acute Stroke Due to Ischemia (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) Malnutrition of Moderate Degree (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 lidocaine-prilocaine (EMLA) 2.5-2.5 % cream Apply to port site about 45 mintues prior to treatment and cover prochlorperazine (COMPAZINE) 10 mg tablet Take 1 tablet by mouth every 6 hours as needed. rivaroxaban (XARELTO) 20 mg tablet Take 1 tablet by mouth daily with dinner. Resume Sep 20 2022 metoprolol tartrate, short acting, (LOPRESSOR) 25 mg tablet Take 1/2 tablet by mouth every 12 hours. New lower dose since in the hospital setting Sep 16 - Sep 18 cyanocobalamin (VITAMIN B-12) 1,000 mcg tab Take 1,000 mcg by mouth once daily. furosemide (LASIX) 20 mg tablet Take 1 tablet by mouth twice daily. atorvastatin (LIPITOR) 40 mg tablet Take 0.5 tablets by mouth once daily. New lower dose as of 2021 levothyroxine (SYNTHROID) 112 mcg tablet Take 1 tablet by mouth once daily. ferrous sulfate 325 mg (65 mg iron) tablet Take 325 mg by mouth three times daily with meals. polyethylene glycol 3350 (MIRALAX, GLYCOLAX) 17 gram packet Take 17 g by mouth once daily as neededfor constipation. Dissolve dose in 4 - 8 ounces of liquid and take as directed. 1/2 capful every other day aspirin, enteric coated (ASPIRIN, ENTERIC COATED) 81 mg EC tablet Take 81 mg by mouth once daily. cholecalciferol (VITAMIN D3) 1,000 unit tab tablet Take 1,000 Units by mouth once daily. MULTIVITAMIN TABLET Take 1 tablet by mouth once daily. EXAM:BP 110/70 (BP Site: Left Arm, BP Position: Sitting, BP Cuff Size: Regular Adult) Pulse 66 Temp 36.6 C (97.9 F) (Temporal) Resp 16 Ht 170.2 cm (5' 7) Wt 77.8 kg (171 lb 9.6 oz) SpO2 98% BMI 26.88 kg/m Last Wt 12/11/22 : 77.8 kg (171 lb 9.6 oz) 12/04/22 : 77.1 kg (170 lb) 11/26/22 : 76 kg (167 lb 9.6 oz) 11/05/22 : 80 kg (176 lb 6.4 oz) PHYSICAL EXAM: General Appearance: Well appearing, alert, in no acute distress, well-hydrated, well nourished.. Skin: Skin color, texture, turgor normal, no suspicious rashes or lesions. Lymph Nodes: No cervical lymphadenopathy, No supraclavicular lymphadenopathy, No axillary lymphadenopathy. and No inguinal lymphadenopathy. Head: Normocephalic, no masses, lesions, tenderness or abnormalities. Eyes: Anicteric sclera. Pupils are equally round and reactive to light. Extraocular movements are intact. . Nose/Sinuses: Nares normal, septum midline, mucosa normal, no drainage or sinus tenderness. Oropharynx: Lips, mucosa, and tongue normal, teeth and gums normal, oropharynx normal. Neck: Supple, no adenopathy; thyroid symmetric, normal size, no bruits. Lungs: Lungs clear to auscultation. No wheezing, rhonchi, rales. Heart: RRR without murmur, gallop, or rubs. No ectopy. Abdomen: Normal abdominal exam, Abdomen soft, non-tender. Bowel sounds normal. No masses, organomegaly. Extremities: No deformities, edema, skin discoloration, clubbing or cyanosis. Good capillary refill. . Musculoskeletal: No joint swelling, deformity, or tenderness. Back:no pain to palpation of vertebrae, good flexion and extension, good range of motion, no muscletenderness, reflexes are 2+ and symmetric, motor and sensory appear to be normal, negative SLR test, no evidence of scoliosis. Peripheral Pulses: Normal. Neurologic: Gait normal. Reflexes normal and symmetric. Sensation grossly intact.. Rectal:n/a Component Latest Ref Rng & Units 07/04/2022 10/07/2022 NT Pro BNP <450 pg/mL 12,845 (H) 3,295 (H) Component Latest Ref Rng & Units 11/05/2022 11/26/2022 12/04/2022 WBC 3.70 - 11.00 k/uL 6.93 7.52 RBC 4.20 - 6.00 m/uL 2.08 (L) 2.22 (L) Hemoglobin 13.0 - 17.0 g/dL 7.9 (L) 8.5 (L) Hematocrit 39.0 - 51.0 % 24.2 (L) 26.1 (L) MCV 80.0 - 100.0 fL 116.3 (H) 117.6 (H) MCH 26.0 - 34.0 pg 38.0 (H) 38.3 (H) MCHC 30.5 - 36.0 g/dL 32.6 32.6 RDW-CV 11.5 - 15.0 % 18.8 (H) 19.3 (H) Platelet Count 150 - 400 k/uL 289 292 MPV 9.0 - 12.7 fL 11.3 11.0 Neut% % 65.0 66.2 Abs Neut (ANC) 1.45 - 7.50 k/uL 4.50 4.98 Lymph% % 15.6 18.0 Abs Lymph 1.00 - 4.00 k/uL 1.08 1.35 Weld% % 15.3 12.8 Abs Weld <0.87 k/uL 1.06 (H) 0.96 (H) Eosin% % 2.7 2.1 Abs Eosin <0.46 k/uL 0.19 0.16 Baso% % 1.0 0.5 Abs Baso <0.11 k/uL 0.07 0.04 Immature Gran % % 0.4 0.4 IMMATURE GRANS (ABS) <0.10 k/uL 0.03 0.03 NRBC /100 WBC 0.4 1.1 Absolute nRBC <0.01 k/uL 0.03 (H) 0.08 (H) DTYPE Auto Auto Erythropoietin 2.6 - 18.5 mIU/mL 79.6 (H) 74.5 (H) Component Latest Ref Rng & Units 10/07/2022 11/05/2022 11/26/2022 12/04/2022 WBC 3.70 - 11.00 k/uL 6.91 6.93 7.52 RBC 4.20 - 6.00 m/uL 2.60 (L) 2.08 (L) 2.22 (L) Hemoglobin 13.0 - 17.0 g/dL 9.7 (L) 7.9 (L) 8.5 (L) Hematocrit 39.0 - 51.0 % 28.9 (L) 24.2 (L) 26.1 (L) MCV 80.0 - 100.0 fL 111.2 (H) 116.3 (H) 117.6 (H) MCH 26.0 - 34.0 pg 37.3 (H) 38.0 (H) 38.3 (H) MCHC 30.5 - 36.0 g/dL 33.6 32.6 32.6 RDW-CV 11.5 - 15.0 % 19.0 (H) 18.8 (H) 19.3 (H) Platelet Count 150 - 400 k/uL 306 289 292 MPV 9.0 - 12.7 fL 11.6 11.3 11.0 Neut% % 68.5 65.0 66.2 Abs Neut (ANC) 1.45 - 7.50 k/uL 4.73 4.50 4.98 Lymph% % 17.1 15.6 18.0 Abs Lymph 1.00 - 4.00 k/uL 1.18 1.08 1.35 Weld% % 11.6 15.3 12.8 Abs Weld <0.87 k/uL 0.80 1.06 (H) 0.96 (H) Eosin% % 1.4 2.7 2.1 Abs Eosin <0.46 k/uL 0.10 0.19 0.16 Baso% % 1.0 1.0 0.5 Abs Baso <0.11 k/uL 0.07 0.07 0.04 Immature Gran % % 0.4 0.4 0.4 IMMATURE GRANS (ABS) <0.10 k/uL 0.03 0.03 0.03 NRBC /100 WBC 0.3 0.4 1.1 Absolute nRBC <0.01 k/uL 0.02 (H) 0.03 (H) 0.08 (H) DTYPE Auto Auto Auto Protein, Total 6.3 - 8.0 g/dL 6.7 Albumin 3.9 - 4.9 g/dL 4.3 Calcium 8.5 - 10.2 mg/dL 9.8 Bilirubin, Total 0.2 - 1.3 mg/dL 1.4 (H) Alkaline Phosphatase 38 - 113 U/L 73 AST 14 - 40 U/L 28 ALT 10 - 54 U/L 20 Glucose 74 - 99 mg/dL 97 BUN 9 - 24 mg/dL 40 (H) Creatinine 0.73 - 1.22 mg/dL 1.18 Sodium 136 - 144 mmol/L 141 Potassium 3.7 - 5.1 mmol/L 4.3 Chloride 97 - 105 mmol/L 100 CO2 22 - 30 mmol/L 29 Anion Gap 9 - 18 mmol/L 12 eGFR >=60 mL/min/1.73m 60 Cholesterol, Total <200 mg/dL 105 Triglyceride <150 mg/dL 53 HDL Cholesterol >39 mg/dL 55 Non HDL Cholesterol <130 mg/dL 50 Fasting Time hrs 12 VLDL Cholesterol <30 mg/dL 11 TC:HDL Ratio <5.10 1.91 LDL Cholesterol <100 mg/dL 39 LDL:HDL Ratio <2.54 0.71 Iron 41 - 186 ug/dL 149 TIBC 232 - 386 ug/dL 195 (L) Transferrin Saturation 15.0 - 57.0 % 76.4 (H) Vitamin D 25 Hydroxy 31.0 - 80.0 ng/mL 50.3 TSH 0.270 - 4.200 mIU/L 1.320 Free T4 0.9 - 1.7 ng/dL 1.3 NT Pro BNP <450 pg/mL 3,295 (H) Erythropoietin 2.6 - 18.5 mIU/mL 79.6 (H) 74.5 (H) ASSESSMENT/PLAN: 1. 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 Malnutrition of moderate degree (HCC) - ICD9: 263.0, ICD10: E44.0 Stable , resolved 3. Chronic heart failure with preserved ejection fraction (HCC) - ICD9: 428.9, ICD10: I50.32 Stable , seems the patient is doing well clinically 4. PAF (paroxysmal atrial fibrillation) (HCC) - ICD9: 427.31, ICD10: I48.0 Stable , rate controlled , on Xarelto 5. Essential hypertension, benign - ICD9: 401.1, ICD10: I10 - good control - Continue current medication(s) - Recommended regular aerobic exercise. - Recommend home blood pressure monitoring, to bring results in on next visit - Goal of BP <130/80 6. Hx of four vessel coronary artery bypass graft - ICD9: V15.1, ICD10: Z95.1 Stable , no ischemic sxs 7. Numbness and tingling of left arm and leg - ICD9: 782.0, ICD10: R20.0, R20.2 Stable , no worse , ongoing 8. Constipation due to slow transit - ICD9: 564.01, ICD10: K59.01 Stable , BM q 1 to 2 days 9. 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HCC) - ICD9: 434.91, ICD10: I63.9 Stable , no reoccurrence 10. Restless legs syndrome with nocturnal myoclonus - ICD9: 333.94, 333.2, ICD10: G25.81, G25.3 Stable 11. Mixed hyperlipidemia - ICD9: 272.2, ICD10: E78.2 - good control - Continue current medication. 12. Spinal stenosis of lumbar region with neurogenic claudication - ICD9: 724.03, ICD10: M48.062 Stable , no pain , no changes in FXN 13. Hypothyroidism, unspecified type - ICD9: 244.9, ICD10: E03.9 - Instructed patient on importance of taking on an empty stomach either first thing in the morning or at bedtime. - continue current dose of Synthroid 0.112 mg - reevaluate TSH and Free T4 next encounter I spent a total of 30 minutes on the date of the service which included preparing to see the patient, [id number] patient care, completing clinical documentation, obtaining and/or reviewing separately obtained history, performing a medically appropriate examination, counseling and educating the pat ient/family/caregiver, ordering medications, tests, or procedures, communicating with other HCPs (not separately reported), independently interpreting results (not separately reported), communicatingresults to the patient/family/caregiver, and care coordination (not separately reported). .Israel Pruitt DO documented in this encounterMer[facility]01-27-2023 Miscellaneous Notes* Sedation Documentation - Juanita Tineo RN - 12/05/2022 10:40 AM EST R IJ not useable per Dr. Butler. Pt agreeable to right arm. * Sedation Documentation - Juanita Tineo RN - 12/05/2022 10:28 AM EST Port instructions reviewed with patient. Written copy provided. Pt's questions answered. documented in this encounterMercy Health [facility]01-27-2023 Surgical operation note* Operative Report - Manjeet Butler MD - 12/05/2022 10:04 AM EST OPERATIVE/PROCEDURE REPORT LOG ID: [id number] Surgery/Procedure Date: 12/05/2022 Incision/Procedure Start Time: 10:35 AM Incision Close/Procedure End Time: 11:00 AM Surgeon(s)/Proceduralist(s) and Scrap Iron Cutter(s): Surgeon(s) and Role: * Manjeet Butler MD - Primary No Additional Staff Procedure(s): Peripheral implanted port insertion Anesthesia: Local Anesthesia Operative indications: 86 year old male who presents for port placement Procedure details: The procedure was performed by Manjeet Butler MD in the radiology suite. The patient was taken to the IR suite where informed consent was obtained. The patient was positioned supine on the operating table. Initially the patient wanted a R chest port. He has a L sided pacemaker. The R neck was prepped and draped, however the R IJ on US was very small with multiple collaterals as one moved proximally. T his was c/w proximal IJ occlusion. As such, we changed to an arm port. The R arm was prepped and draped in the usual sterile fashion. All elements of maximal barrier technique including cap and mask,sterile gown, sterile gloves, a large sterile drape, hand hygiene, and appropriate prep agent for cutaneous antisepsis were utilized and maintained during the procedure. After time-in, the R basilic vein was interrogated with the ultrasound and found to be patent. Utilizing local anesthesia, ultrasound guidance, a micropuncture system access was obtained in the R basilic vein and the tip of the needle within the vein was documented. Utilizing guidewire exchange andldinger technique, a long sheath was placed. A port catheter was then successfully introduced andpositioned with the tip at the superior vena caval right atrial junction and the sheath removed. The port catheter was cut to the appropriate length and connected to the port chamber. Utilizing bluntdissection, a subcutaneous pocket was formed in R arm medially just above the antecubital fossa. The chamber was placed in the pocket and secured in place with suture material. The incision was closed with suture material and bandaged. The port was accessed with the appropriate Arthur needle and flushed with Hep- Lock solution. The port chamber is ready for use. Findings: Technically successful placement of peripheral port via the R basilic vein approach with the tip ofthe catheter in the superior vena cava right atrial junction. Likely R IJ occlusion proximally. L pacemaker in place Pre-Op/Pre-Procedure Diagnosis: leukemia, need for chemo Post-Op/Post-Procedure Diagnosis: Same Estimated Blood Loss: 0 ml Specimens: None Implantable Devices: * No implants in log * Complications: None Manjeet Butler MD documented in this encounterMercy [facility]01-26-2023 NoteHNO ID: [id number] Author: KAITLYNN Staples Service: ? Author Type: E M Assembler Type: Progress Notes Filed: 12/04/2022 3:35 PM Note Text: Also submitted referral for [employer]ivered meals to be delivered to his home.[facility]01-26-2023 [facility] 12-04-2022 History of Present illness Narrative* KAITLYNN Staples - 12/04/2022 3:34 PM EST Also submitted referral for [employer]ivered meals to be delivered to his home. documented in this encounterMercy Health [facility]01-26-2023 History of Present illness Narrative* KAITLYNN Staples - 12/04/2022 3:28 PM EST Images from the original note were not included. RE: Evaluation E M Assembler KAITLYNN Staples Resource Counselor (RC) met with new patient to review the Patient Navigation process. RC advised patient their role as the warehouse team member assisting patients in navigating the system both in the hospital as well as connecting patients with resources in the community. RC did review with patient the results of their completed Distress Thermometer. Any indicated areas of concern were addressed and referrals made as appropriate. Informed patient of the process of the benefits investigation which wouldbe completed at the start of treatment, noted that if there are any red flags (i.e. A high max out of pocket) a member of the Resource Counselor team will meet with or call the patient to review in more detail. RC reviewed the role of the Informatics Scientist and the attempts she would make to assist the patient if eligible in an application for foundations based on diagnosis which may help with treatment cost. RC explained that this service is done as a courtesy and should never be expected due to the frequent closure of these foundations w/lack of funds. RC reviewed the New Patient folder which contains information on available support programs, financial assistance handouts/flyers and community resources. Reviewed that RC is able to assist PT in completing advanced directives whichis encouraged for all patients regardless of diagnosis. Discussed patient satisfaction and to contact RC should patient have any questions or concerns so that RC could help facilitate a resolution. Patient was informed that one of our goals is to provide Diverse and Culturally Sensitive Assistance.Informed patient that if he wishes to discuss in further detail any of the information provided or programs to call and schedule an appointment. RC did review with patient the results of their completed Distress Thermometer. Any indicated areasof concern were addressed and referrals made as appropriate. AG ONC NCCN DISTRESS THERMOMETER 12/04/2022 Distress level 2 Practical Concerns Yes Pain No Sleep No Fatigue Yes Tobacco use No Substance use No Memory or concentration No Sexual health No Changes in eating Yes Loss or change of physical abilities No Emotional concerns No Worry or anxiety No Sadness or depression No Loss of interest or enjoyment No Grief or loss No Fear No Loneliness No Anger No Changes in appearance No Feeling worthless/being a burden No Social Concerns No Relationship with spouse/partner No Relationship with children No Relationship with family members No Relationship with friends or coworkers No Communication with health care team No Ability to have children No Practical Concerns No Taking care of myself No Taking care of others No Work No School No Housing No Finances No Insurance No Transporation No social worker palliative care No Having enough food No Access to medicine No Treatment decisions No Spiritual or Taoism Concerns No Sense of meaning or purpose No Changes in efrain or beliefs No , dying or afterlife No Conflict between beliefs and cancer treaments No Relationhip with the sacred No Ritual or dietary needs No Other Concerns none Linda Tipton, WHEAT GROWER documented in this encounterMercy Health [facility]01-26-2023 [facility]01-26-2023 History of Present illness Narrative* Skye Mas APRN.OFFICE MACHINES SALES REPRESENTATIVE - 12/04/2022 12:37 PM EST Chemotherapy Education Dx: CMML This visit was spend discussing the side effects of Vidaza. Side effects were discussed with the patient extensively. Handouts from [employer] given for Vidaza. General risks from chemotherapy described and explained , including but not limited to , low blood counts, GI upset, peripheral neuropathy, risk of infection, risk of bleeding, fatigue, loss of appetite, constipation and diarrhea. Treatment of side effects was discussed extensively as well. Script for nausea medicine and EMLA cream e-scribed to the patient's pharmacy. Discussed how chemotherapy infused. Patient has a verbal understanding as evidenced by discussion and appropriate questions. Discussed the importance of calling theoffice with side effects, especially fever. Handouts given and explained from [facility] including all of support services offered. Patient met with social work at visit. Time spent: 50 minutes >50% of the time was spent in counseling and/or coordination of care. Skye Mas APRN.OFFICE MACHINES SALES REPRESENTATIVE documented in this encounterMercy Health [facility]01-18-2023 [facility]01-18-2023 Miscellaneous Notes* Telephone Encounter - Valentina Bethea - 11/26/2022 11:50 AM EST Patient left the 11/26/22 appointment and said that they will let us know if they want to do treatment or reschedule. documented in this encounterMercy Health [facility]01-18-2023 Instructions* Patient Instructions* Randa Rowell DO - 11/26/2022 11:40 AM EST Chronic myelomonocytic leukemia (CMML) Is an uncommon blood cancer that has features of two other types of blood cancers. For this reason,the World Health Organization (WHO) classifies CMML as myelodysplastic/myeloproliferative neoplasms. There are about 1,100 cases each year. Generally affects older adults. Is diagnosed in twice as many males than females. Has been reported in only a small number of olderchildren and younger adults. What You Should Know Many individual factors influence treatment outcomes. Hematologists and oncologists are specialists who treat people who have CMML or other types of blood cancer. What You Should Do Talk with your doctor about your diagnostic tests and what the results mean. Seek treatment in a cancer center where doctors are experienced in treating patients with leukemia. Ask your doctor whether a clinical trial is a good treatment option for you. To download lists of suggested questions to ask your healthcare providers, click here . How Does CMML Develop? CMML starts when a stem cell in the bone marrow mutates. This results in abnormal blood cell production and an overproduction of blasts and immature monocytes, types of white blood cells that crowd out other blood cells. The blasts never mature completely into normal monocytes so they can t carry out their normal functions. Over time, the abnormal monocytes accumulate in the marrow and other organs and interfere with the normal production of other types of blood cells, including red blood cells (which carry oxygen to all the tissues of the body) and platelets (which form clots to help stop bleeding after an injury). If not treated, CMML can lead to: Low numbers of red blood cells that can no longer supply an adequate amount of oxygen, resulting inanemia. The immune system's inability to guard against infection effectively because of a lack of neutrophils (a type of white cell), a condition called leukopenia. Low numbers of platelets, which can cause bleeding and easy bruising with no apparent cause, a condition called thrombocytopenia. Risk Factors Doctors don't know why some cells become chronic myelomonocytic leukemia (CMML) cells and others don't. They've found few risk factors associated with the disease. You can't catch CMML from someone else. Diagnosing chronic myelomonocytic leukemia (CMML) usually involves a series of repeated tests, including blood and bone marrow tests. Your doctor usually can't confirm a diagnosis of CMML with one lab test result that shows abnormal blood counts. Instead, he or she will monitor you over a period oftime with repeated lab tests that show abnormal blood counts. This is done to rule out other diagnoses. Bone marrow testing involves two steps usually done at the same time in a doctor's office or a hospital: A bone marrow aspiration to remove a liquid marrow sample; and A bone marrow biopsy to remove a small amount of bone filled with marrow. A hematopathologist examines the samples of your blood and marrow to confirm a diagnosis, identify the CMML subtype and look for damage to your chromosomes. A hematopathologist is a specialist who studies blood cell diseases by examining samples of blood cells, bone marrow cells and other tissues. The hematopathologist looks for the following to identify CMML: Persistent high levels of monocytes in the blood No evidence of a [place] chromosome. This is seen in a similar disease known as chronic myeloid leukemia (CML). This can be determined based on a blood test looking for a particular abnormality known as a BCR/ABL fusion gene. Less that 20 percent of blast cells in the blood and bone marrow Abnormalities in one or more types of precursor cells that develop into red blood cells, certain types of white blood cells or platelets Other Diagnostic Tests Your doctor may order one or more tests such as those below to diagnose CMML: X-rays or computed tomography (CT) scans detect an enlarged spleen or liver. Blood and urine tests detect high levels of lysozyme, an enzyme found in saliva, tears and some immune cells like monocytes. Additional blood work looks for high levels of proteins called lactate dehydrogenase (LDH) and beta2-microglobulin, which can indicate tissue damage and increased white-cell production or destruction caused by inflammation or certain types of cancer. Cytogenetic and Molecular Abnormalities Cytogenetic abnormalities refer to abnormal changes in chromosomes, which may include broken, missing, rearranged or extra chromosomes. Approximately 20 to 30 percent of CMML patients have chromosomal abnormalities. Some chromosomal abnormalities can affect prognosis and treatment. Molecular abnormalities refer to abnormal changes in genes. These abnormalities are known as gene mutations. Mutations that are acquired and not inherited are called somatic mutations. In CMML, almost 90 percent of patients exhibit one or more somatic mutation. Some molecular abnormalities can affect prognosis and treatment It's important that your doctor is experienced in treating people who have chronic myelomonocytic leukemia (CMML) or works in consultation with a net making supervisor oncologist who has experience treating CMML patients. Types of CMML Treatment In most cases, CMML can't be cured, but it can be treated. Doctors use several types of treatment for adults with CMML, although there's no one standard drug therapy for the disease: Chemotherapy and drug therapy Stem cell transplantation Clinical trials Finding the Best Treatment Approach For most CMML patients, the disease is treatable, but not curable, with currently available therapies. The treatment your doctor recommends is based on several factors, including: The nature and extent of your symptoms How quickly your disease is progressing and needs to be brought under control Your eligibility for stem cell transplantation Your overall health The effect treatment may have on your quality of life As you develop a treatment plan with your doctor, be sure to discuss: The results you can expect from treatment Potential side effects, including long-term and late effects The possibility of participating in a clinical trial, where you'll have access to advanced medical treatment that may be more beneficial to you than standard treatment You may find it helpful to bring a loved one with you to your doctor's visits for support and to take notes and ask follow-up questions. It's a good idea to prepare questions you'd like to ask when you visit your doctor. You can also record your conversations with your doctor and listen more closely when you get home. documented in this encounterMercy Health [facility]01-18-2023 History of Present illness Narrative* Randa Rowell DO - 11/26/2022 11:14 AM EST HEMATOLOGY/ONCOLOGY Follow up Srini Luis 1935 October 09, 2022 Referred by: SELF Diagnosis: CMML-1 CC: What's going on HPI: Srini Luis is a 86 year old male w/ PMHx macrocytic anemia, CAD s/p 4V CABG, CVA, pAfib, HTN, hypothyroidism, heart block s/p pacemaker who presents macrocytic anemia. In review of his records, he does have a hx of B12 deficiency back in 2019, which appears to be whgen his anemia began. He has since progressively been more anemic. During this time he has also had significant cardiac diseases requiring treatment. He remains on MVI currently, even with supplementation of b12 he remains siognificantly macrocytic. No significant other cytopenias. No night sweats, no abnormal weight changes or weight loss. Interval Hx: Since last being seen, Mr. Luis continues to do well. + fatigue. 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; Confirmed Blk below His by His Bundle Electrogram CVA (cerebral vascular accident) ([facility]) 08/22/2022 Diverticulosis History of anemia Hx of CABG 07/22/2021 4 vessel CABG with ORNELAS-LAD, SVG-RI, SVG-OM, and SVG-RCA in [place] Hx of colonoscopy 09/27/2015 no reported polyps per patient recollection Hypertension 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 2017 when he's been off medication Nocturnal hypoxemia On oxygen at night Osteoarthritis, generalized Pacemaker 09/17/2022 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 PAF (paroxysmal atrial fibrillation) ([facility]) 2020 Post CABG atrial fibrillation PVC's (premature ventricular contractions) RBBB Status post ligation of left atrial appendage 07/2021 At time of CABG PAST SURGICAL HISTORY Procedure Laterality Date ANKLE RIGHT OP SURGERY Right 12/18/2020 Dr Arreola [facility] ARTHROPLASTY TOTAL SHOULDER 11/09/2008 right ARTHROSCOPY OF JOINT UNLISTED [place] right CABG (4) VEIN GRAFTS & ARTERIAL GRAFT(S) 07/21/2021 In [facility] COLONOSCOPY FLX DX W/COLLJ SPEC WHEN PFRMD 09/01/2005 Colonoscopy COLONOSCOPY FLX DX W/COLLJ SPEC WHEN PFRMD 09/27/2015 Colonoscopy PAST SURGICAL HISTORY OF 07/21/2021 Coronary Artery Bypass Graft x 4 REMOVAL OF TONSILS,<12 Y/O S $ DUAL CHMBR PACER [id number] Left 09/17/2022 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 Current Outpatient Medications Medication Sig Dispense Refill rivaroxaban (XARELTO) 20 mg tablet Take 1 tablet by mouth daily with dinner. Resume Sep 20 2022 90 tablet 3 metoprolol tartrate, short acting, (LOPRESSOR) 25 mg tablet Take 1/2 tablet by mouth every 12 hours. New lower dose since in the hospital setting Sep 16 - Sep 18 90 tablet 3 cyanocobalamin (VITAMIN B-12) 1,000 mcg tab Take 1,000 mcg by mouth once daily. furosemide (LASIX) 20 mg tablet Take 1 tablet by mouth twice daily. 180 tablet 3 atorvastatin (LIPITOR) 40 mg tablet Take 0.5 tablets by mouth once daily. New lower dose as of 2021 90 tablet 3 levothyroxine (SYNTHROID) 112 mcg tablet Take 1 tablet by mouth once daily. 90 tablet 3 ferrous sulfate 325 mg (65 mg iron) tablet Take 325 mg by mouth three times daily with meals. polyethylene glycol 3350 (MIRALAX, GLYCOLAX) 17 gram packet Take 17 g by mouth once daily as neededfor constipation. Dissolve dose in 4 - 8 ounces of liquid and take as directed. 1/2 capful every other day aspirin, enteric coated (ASPIRIN, ENTERIC COATED) 81 mg EC tablet Take 81 mg by mouth once daily. cholecalciferol (VITAMIN D3) 1,000 unit tab tablet Take 1,000 Units by mouth once daily. MULTIVITAMIN TABLET Take 1 tablet by mouth once daily. 0 No current facility-administered medications for this visit. ALLERGIES Allergen Reactions Simvastatin Other: See Comments Elevated CK FAMILY HISTORY Problem Relation Age of Onset Heart Mother Heart Father CHF Colon Cancer No Family History Prostate Cancer No Family History Blood Clots No Family History NO PE OR DVT Social History Tobacco Use Smoking status: Former Types: Cigarettes Quit date: 08/11/1989 Years since quittin.3 Smokeless tobacco: Never Tobacco comments: quit 18-19 years ago Vaping Use Vaping Use: Never used Substance Use Topics Alcohol use: Yes Alcohol/week: 12.5 standard drinks Types: 2 Glasses of Wine (5oz), 2 Cans of Beer (12oz), 1 Mixed Drinks per week Comment: 1-2 beers per week Drug use: No Review of Systems: A complete ROS was obtained and is otherwise neg except as noted in HPI Physical Exam: BP 104/57 Pulse 84 Temp (Src) 97.3 (Tympanic) Wt 167 lb 9.6 oz (76.0kg) SpO2 96% ECOG PS: 2 General: Aox3, NAD HEENT: EOMI, PERRLA, sclera anicteric, MMM Neck: Supple, no thyroid nodules, no JVD, no adenopathy Chest: CTAB w/o w/r/r Heart: RRR w/o m/r/g. Abdomen: Soft, nontender, nondistended, bowel sounds present, no organomegaly or mass Extremities: No edema, no erythema 2+ DP Pulses Neurological: CN2-12 grossly intact Skin: Warm and dry with no rashes or ulcerations. Nodes: No palpable adenopathy in the cervical, supraclavicular, infraclavicular, or axillary regions. Hematologic: no bruising or petechiae. Psychiatric: Alert and oriented x3 No change Labs Appointment on 11/05/2022 Component Date Value Ref Range Status Erythropoietin 11/05/2022 79.6 (A) 2.6 - 18.5 mIU/mL Final WBC 11/05/2022 6.93 3.70 - 11.00 k/uL Final RBC 11/05/2022 2.08 (A) 4.20 - 6.00 m/uL Final Hemoglobin 11/05/2022 7.9 (A) 13.0 - 17.0 g/dL Final Hematocrit 11/05/2022 24.2 (A) 39.0 - 51.0 % Final MCV 11/05/2022 116.3 (A) 80.0 - 100.0 fL Final MCH 11/05/2022 38.0 (A) 26.0 - 34.0 pg Final MCHC 11/05/2022 32.6 30.5 - 36.0 g/dL Final RDW-CV 11/05/2022 18.8 (A) 11.5 - 15.0 % Final Platelet Count 11/05/2022 289 150 - 400 k/uL Final MPV 11/05/2022 11.3 9.0 - 12.7 fL Final Neut% 11/05/2022 65.0 % Final Abs Neut 11/05/2022 4.50 1.45 - 7.50 k/uL Final Lymph% 11/05/2022 15.6 % Final Abs Lymph 11/05/2022 1.08 1.00 - 4.00 k/uL Final Weld% 11/05/2022 15.3 % Final Abs Weld 11/05/2022 1.06 (A) <0.87 k/uL Final Eosin% 11/05/2022 2.7 % Final Abs Eosin 11/05/2022 0.19 <0.46 k/uL Final Baso% 11/05/2022 1.0 % Final Abs Baso 11/05/2022 0.07 <0.11 k/uL Final Immature Gran % 11/05/2022 0.4 % Final Abs Immature Gran 11/05/2022 0.03 <0.10 k/uL Final NRBC 11/05/2022 0.4 /100 WBC Final Absolute nRBC 11/05/2022 0.03 (A) <0.01 k/uL Final Diff Type 11/05/2022 Auto Final Copper 11/05/2022 100 70 - 140 ug/dL Final Radiology: Pathology: Addendum Cytogenetics (see separate report) revealed a normal male karyotype: 46,XY[20]. The myeloid NGS panel (see separate report) identified the following variants (with VAFs): SF3B1 p.[id number] (41.7%) and TET2 p.[id number]*6 (46%). 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 The threshold for absolute monocytosis in CMML has since been lowered to 0.5 k/uL (from 1.0 k/uL in the 2016 WHO), which accounts for the discrepancy. Further, the category of CMML-0 (which this neoplasm would have otherwise been classified as) has been eliminated by both classification systems in lieu of a two-tiered blast-basedgrading scheme (of CMML-1 and -2 only). The patient had a single CBC since 2019 (specifically 08/24/2022) in which there was not a relative monocytosis; this is attributable to transiently increased n eutrophils in the setting of acute stroke/ischemia, and is here regarded as an outlier. Addendum electronically signed by Nnamdi Hernandez MD on 11/12/2022 at 3:48 PM FINAL DIAGNOSIS A-C. 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 Diagnosis Comment The bone marrow is mildly hypercellular for age (overall approximately 30%). Blasts are not increased. There is dyserythropoiesis with increased ring sideroblasts (exceeding 50% of erythroid forms), along with morphologic changes as described below. There is also mild dysmegakaryopoiesis with a subset of forms with nuclear lobes. 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 Cytogenetics and myeloid NGS are currently pending and results will be reported separately and in an addendum (along with final classification) when available. The case was reviewed by Dr. Tigist Mcqueen, who agrees with this assessment. Assessment and Plan: Srini Luis is a 86 year old male w/ PMHx macrocytic anemia, CAD s/p 4V CABG, CVA, pAfib, HTN, hypothyroidism, heart block s/p pacemaker who presents macrocytic anemia # CMML1 - While initially given the significant dysplasia and ringed sideroblasts with TET2 and SF3B1 was felt to be due to MDS, in full review of his prior CBCs, and with the new classification of CMML-1 which lowered the absolute monocytosis down to 0.5 from 1.0, this now is classified as CMML1 - Discussed with patient updated diagnosis due to new classification from WHO - Discussed CMML1 is different from MDS with overlap disease and is higher risk for progression to AML. CMML1 has ~25% risk of transformation over 1 year with median PFS of 16 months - Discussed due to this we typically treated with HMA (aza or dec) at 5-7 days q28 days though can stretch to q6 or even q8 weeks. - goal of treatment would be to extend time til progression of AML - Discussed this is incurable without an allo SCT of which he is not a candidate for - Discussed Aza AE: myelosuppression N/V/D, mild alopecia. Handout given - he is going to think about his options Randa Rowell DO Hematology/Oncology [facility] During this patient visit I have spent approximately 40 minutes out of 45 in counseling regarding treatment options, medications, and test results and coordinating care. [facility] Miscellaneous Notes* Telephone Encounter - Yadira Walsh LPN - 11/20/2022 1:52 PM EST Patient phones requesting refills as follows: Pt is requesting that the rx be sent to [facility] (originally given to [facility] pharmacy becauseit was hospital generated) Requested Prescriptions Pending Prescriptions Disp Refills rivaroxaban (XARELTO) 20 mg tablet 90 tablet 3 Sig: Take 1 tablet by mouth daily with dinner. Resume Sep 20 2022 Please review and advise. Yadira Walsh LPN documented in this encounterMer[facility]12-29-2022 Miscellaneous Notes* Telephone Encounter - Christa Paris RN - 11/06/2022 9:17 AM EST Patient called the [facility] with question on sodium in water softener. Call returned, message left. Research states that approximately 35 mg is in an 8 ounce glass. documented in this encounterMer[facility]12-28-2022 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 In review of his records, he does have a hx of B12 deficiency back in 2018, which appears to be whgen his anemia began. He has since progressively been more anemic. During this time he has also had significant cardiac diseases requiring treatment. He remains on MVI currently, even with supplementation of b12 he remains siognificantly macrocytic. No significant other cytopenias. No night sweats, no abnormal weight changes or weight loss. Interval Hx: Since last being seen, overall Mr. Luis is doing well. Denied any significant fatigue/lightheadedness. 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; Confirmed Blk below His by His Bundle Electrogram CVA (cerebral vascular accident) ([facility]) 08/22/2022 Diverticulosis History of anemia Hx of CABG 07/22/2021 4 vessel CABG with ORNELAS-LAD, SVG-RI, SVG-OM, and SVG-RCA in [place] Hx of colonoscopy 09/27/2015 no reported polyps per patient recollection Hypertension Hypothyroidism 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 2017 when he's been off medication Nocturnal hypoxemia On oxygen at night Osteoarthritis, generalized Pacemaker 09/17/2022 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 PAF (paroxysmal atrial fibrillation) ([facility]) 2020 Post CABG atrial fibrillation PVC's (premature ventricular contractions) RBBB Status post ligation of left atrial appendage 07/2021 At time of CABG PAST SURGICAL HISTORY Procedure Laterality Date ANKLE RIGHT OP SURGERY Right 12/18/2020 Dr Arreola [facility] ARTHROPLASTY TOTAL SHOULDER 11/09/2008 right ARTHROSCOPY OF JOINT UNLISTED Elbow right CABG (4) VEIN GRAFTS & ARTERIAL GRAFT(S) 07/21/2021 In [facility] COLONOSCOPY FLX DX W/COLLJ SPEC WHEN PFRMD 09/01/2005 Colonoscopy COLONOSCOPY FLX DX W/COLLJ SPEC WHEN PFRMD 09/27/2015 Colonoscopy PAST SURGICAL HISTORY OF 07/21/2021 Coronary Artery Bypass Graft x 4 REMOVAL OF TONSILS,<12 Y/O S $ DUAL CHMBR PACER [id number] Left 09/17/2022 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 Current Outpatient Medications Medication Sig Dispense Refill metoprolol tartrate, short acting, (LOPRESSOR) 25 mg tablet Take 1/2 tablet by mouth every 12 hours. New lower dose since in the hospital setting Sep 16 - Sep 18 90 tablet 3 cyanocobalamin (VITAMIN B-12) 1,000 mcg tab Take 1,000 mcg by mouth once daily. rivaroxaban (XARELTO) 20 mg tablet Take 1 tablet by mouth daily with dinner. Resume Sep 20 2022 90 tablet 2 furosemide (LASIX) 20 mg tablet Take 1 tablet by mouth twice daily. 180 tablet 3 atorvastatin (LIPITOR) 40 mg tablet Take 0.5 tablets by mouth once daily. New lower dose as of 2021 90 tablet 3 levothyroxine (SYNTHROID) 112 mcg tablet Take 1 tablet by mouth once daily. 90 tablet 3 ferrous sulfate 325 mg (65 mg iron) tablet Take 325 mg by mouth three times daily with meals. polyethylene glycol 3350 (MIRALAX, GLYCOLAX) 17 gram packet Take 17 g by mouth once daily as neededfor constipation. Dissolve dose in 4 - 8 ounces of liquid and take as directed. 1/2 capful every other day aspirin, enteric coated (ASPIRIN, ENTERIC COATED) 81 mg EC tablet Take 81 mg by mouth once daily. cholecalciferol (VITAMIN D3) 1,000 unit tab tablet Take 1,000 Units by mouth once daily. MULTIVITAMIN TABLET Take 1 tablet by mouth once daily. 0 No current facility-administered medications for this visit. ALLERGIES Allergen Reactions Simvastatin Other: See Comments Elevated CK FAMILY HISTORY Problem Relation Age of Onset Heart Mother Heart Father CHF Colon Cancer No Family History Prostate Cancer No Family History Blood Clots No Family History NO PE OR DVT Social History Tobacco Use Smoking status: Former Types: Cigarettes Quit date: 08/11/1989 Years since quittin.2 Smokeless tobacco: Never Tobacco comments: quit 18-19 years ago Vaping Use Vaping Use: Never used Substance Use Topics Alcohol use: Yes Alcohol/week: 12.5 standard drinks Types: 2 Glasses of Wine (5oz), 2 Cans of Beer (12oz), 1 Mixed Drinks per week Comment: 1-2 beers per week Drug use: No Review of Systems: A complete ROS was obtained and is otherwise neg except as noted in HPI Physical Exam: BP 106/53 Pulse 89 Temp (Src) 97.3 (Temporal Artery) Ht 5' 7.008 (1.70m) Wt 176 lb 6.4 oz (80.0kg) SpO2 92% BMI 27.62 kg/(m^2). ECOG PS: 2 General: Aox3, NAD HEENT: EOMI, PERRLA, sclera anicteric, MMM Neck: Supple, no thyroid nodules, no JVD, no adenopathy Chest: CTAB w/o w/r/r Heart: RRR w/o m/r/g. Abdomen: Soft, nontender, nondistended, bowel sounds present, no organomegaly or mass Extremities: No edema, no erythema 2+ DP Pulses Neurological: CN2-12 grossly intact Skin: Warm and dry with no rashes or ulcerations. Nodes: No palpable adenopathy in the cervical, supraclavicular, infraclavicular, or axillary regions. Hematologic: no bruising or petechiae. Psychiatric: Alert and oriented x3 No change Labs Admission on 10/24/2022, Discharged on 10/24/2022 Component Date Value Ref Range Status PT Sec 10/24/2022 13.5 (A) 9.7 - 13.0 sec Final INR 10/24/2022 1.3 0.9 - 1.3 Final Case Report 10/24/2022 Final Value:Bone Marrow Pathology Report Case: [id number] Authorizing Provider: Randa Rowell DO Collected: 10/24/2022 12:31 PM Ordering Location: [facility] Received: 10/24/2022 02:31 PM INTERVENTIONAL RADIOLOGY Pathologist: Nnamdi Hernandez MD Specimens: A) - BONE MARROW ASPIRATE LEFT POSTERIOR ILIAC CREST B) - BONE MARROW BIOPSY LEFT POSTERIOR ILIAC CREST C) - BONE MARROW CLOT LEFT POSTERIOR ILIAC CREST FINAL DIAGNOSIS 10/24/2022 Final Value:This result contains rich text formatting which cannot be displayed here. Diagnosis Comment 10/24/2022 Final Value:This result contains rich text formatting which cannot be displayed here. Microscopic Description 10/24/2022 Final Value:This result contains rich text formatting which cannot be displayed here. Gross Description 10/24/2022 Final Value:This result contains rich text formatting which cannot be displayed here. Performing Lab 10/24/2022 Final Value:This result contains rich text formatting which cannot be displayed here. DNA Extraction Bone Marrow (Buffy * 10/24/2022 Final Value:This specimen was received and successfully processed for future DNA purification should molecular testing be needed. Specimens will be available for 3 years from date of collection. To order testing on this specimen for [facility] patients, please place an [place] order for DNAand RNA Clinical Testing ([id number]). To order testing for patients outside of the [facility] system, please request DNA and RNA for Clinical Testing, order code [id number]. If additional paperwork is required for testing, please send completed forms via secure email to [email or web address]. Flow Cytometry Order Status 10/24/2022 See Results in chart under F case ID Final MYELOID NGS PANEL BONE MARROW 10/24/2022 Myeloid NGS Panel Bone Marrow Laboratory Accession Number: [id number] Result: Please see linked document and/or separate report for full result when available. As reviewed by Laron Jeong MD Final FLT3 ITD HN PANEL BONE MARROW 10/24/2022 Final Value:FLT3 Internal Tandem Duplication (ITD) Mutation Testing Laboratory Accession Number: [id number] FLT3 Internal Tandem Duplication (ITD) mutation: Not Detected Comment: FLT3/ITD is found in approx. 20-30% of adult patients and in approx. 5-12% of infants and children with acute myeloid leukemia (AML). FLT3/ITD are most often associated with a normal karyotype, t(15;17), and t(6;9). FLT3/ITD is associated with leukocytosis and a poor prognosis in both children and adults. In cytogenetically normal AML, FLT3/ITD has been associated with a poor prognosis. FLT3 mutation status has been reported to change between diagnosis and relapse; this may relate to the instability of FLT3 mutations. Methodology: DNA is isolated from the specimen provided. Regions of the FLT3 tyrosine kinase receptor gene are subjected to the polymerase chain reaction (PCR) using fluorescently labeled forward PCR primers. PCR products are analyzed by capillary gel electrophoresis for in-frame length mutations (ITD mutations). This assay can detect ITD mutant alleles which represent approx. 5-10% of the total alleles. The ITD ratio is calculated as the area under the curve of the ITD signal to the area under the curve of the wild type signal. Limitations: Due to the diversity of potential ITD mutations, standardized calibration material is not available and calculated ITD peak ratios may therefore not be directly comparable across laboratories. As PCR efficiency varies with the size of the insertion mutation, calculated peak ratios may not necessarily correlate with percentage of mutant alleles. ITD ratio information should be interpreted with caution, in conjunction with other cytogenetic and molecular findings to assess prognosis within myeloid neoplasms. References: 1) Agustin MP, Janet P, Pegi E, et al. Mutational landscape of AML with normal cytogenetics: biological and clinical implications. Blood Rev.2013;27:13-22. 2) Cunha CARLOS, Neema M, Gibson ME, et al. Prognostic relevance of integrated genetic profiling in acute myeloid leukemia. N Engl J Med. 2012 Jan 28;366 (12):1079-89. 3) Harinder H, Adne E, Davy D, et al. Diagnosis and mangement of AML in adults: 2017 ELN recommendations from an international expert panel. Blood 129,424-448 (2017). Disclaimer: This test was developed and its performance characteristics determined by [facility]'s [facility] Pathology and Laboratory Medicine [place] ([facility]). It has not been cleared or approved by the FDA. -[facility] is regulated under CLIA as certified to perform high- complexity testing. This test is used for clinical purposes. It should not be regarded as investigational or for research. Testing and interpretation performed at [facility], [address] [place], [place] [id number]. CLIA Number: [id number] As reviewed by Tahmina Duong, PhD, [facility] PATHOLOGIST 10/24/2022 [id number] Final WBC 10/24/2022 6.01 3.70 - 11.00 k/uL Final RBC 10/24/2022 2.21 (A) 4.20 - 6.00 m/uL Final Hemoglobin 10/24/2022 8.4 (A) 13.0 - 17.0 g/dL Final Hematocrit 10/24/2022 25.0 (A) 39.0 - 51.0 % Final MCV 10/24/2022 113.1 (A) 80.0 - 100.0 fL Final MCH 10/24/2022 38.0 (A) 26.0 - 34.0 pg Final MCHC 10/24/2022 33.6 30.5 - 36.0 g/dL Final RDW-CV 10/24/2022 18.8 (A) 11.5 - 15.0 % Final Platelet Count 10/24/2022 251 150 - 400 k/uL Final MPV 10/24/2022 11.5 9.0 - 12.7 fL Final Neut% 10/24/2022 68.1 % Final Abs Neut 10/24/2022 4.09 1.45 - 7.50 k/uL Final Lymph% 10/24/2022 17.6 % Final Abs Lymph 10/24/2022 1.06 1.00 - 4.00 k/uL Final Weld% 10/24/2022 11.1 % Final Abs Weld 10/24/2022 0.67 <0.87 k/uL Final Eosin% 10/24/2022 1.7 % Final Abs Eosin 10/24/2022 0.10 <0.46 k/uL Final Baso% 10/24/2022 0.8 % Final Abs Baso 10/24/2022 0.05 <0.11 k/uL Final Immature Gran % 10/24/2022 0.7 % Final Abs Immature Gran 10/24/2022 0.04 <0.10 k/uL Final NRBC 10/24/2022 0.8 /100 WBC Final Absolute nRBC 10/24/2022 0.05 (A) <0.01 k/uL Final Diff Type 10/24/2022 Auto Final Interpretation 10/24/2022 Final Value:This result contains rich text formatting which cannot be displayed here. Results 10/24/2022 Final Value:This result contains rich text formatting which cannot be displayed here. Gross Description 10/24/2022 Final Value:This result contains rich text formatting which cannot be displayed here. Diagnosis Comment 10/24/2022 Final Value:This result contains rich text formatting which cannot be displayed here. Case Report 10/24/2022 Final Value:Flow Cytometry Case: [id number] Authorizing Provider: Randa Rowell DO Collected: 10/24/2022 12:31 PM Ordering Location: [facility] Received: 10/25/2022 09:22 AM INTERVENTIONAL RADIOLOGY Pathologist: Laron Jeong MD Specimen: Bone Marrow Performing Lab 10/24/2022 Final Value:This result contains rich text formatting which cannot be displayed here. Appointment on 10/07/2022 Component Date Value Ref Range Status WBC 10/07/2022 6.91 3.70 - 11.00 k/uL Final RBC 10/07/2022 2.60 (A) 4.20 - 6.00 m/uL Final Hemoglobin 10/07/2022 9.7 (A) 13.0 - 17.0 g/dL Final Hematocrit 10/07/2022 28.9 (A) 39.0 - 51.0 % Final MCV 10/07/2022 111.2 (A) 80.0 - 100.0 fL Final MCH 10/07/2022 37.3 (A) 26.0 - 34.0 pg Final MCHC 10/07/2022 33.6 30.5 - 36.0 g/dL Final RDW-CV 10/07/2022 19.0 (A) 11.5 - 15.0 % Final Platelet Count 10/07/2022 306 150 - 400 k/uL Final MPV 10/07/2022 11.6 9.0 - 12.7 fL Final Neut% 10/07/2022 68.5 % Final Abs Neut 10/07/2022 4.73 1.45 - 7.50 k/uL Final Lymph% 10/07/2022 17.1 % Final Abs Lymph 10/07/2022 1.18 1.00 - 4.00 k/uL Final Weld% 10/07/2022 11.6 % Final Abs Weld 10/07/2022 0.80 <0.87 k/uL Final Eosin% 10/07/2022 1.4 % Final Abs Eosin 10/07/2022 0.10 <0.46 k/uL Final Baso% 10/07/2022 1.0 % Final Abs Baso 10/07/2022 0.07 <0.11 k/uL Final Immature Gran % 10/07/2022 0.4 % Final Abs Immature Gran 10/07/2022 0.03 <0.10 k/uL Final NRBC 10/07/2022 0.3 /100 WBC Final Absolute nRBC 10/07/2022 0.02 (A) <0.01 k/uL Final Diff Type 10/07/2022 Auto Final Protein, Total 10/07/2022 6.7 6.3 - 8.0 g/dL Final Albumin 10/07/2022 4.3 3.9 - 4.9 g/dL Final Calcium, Total 10/07/2022 9.8 8.5 - 10.2 mg/dL Final Bilirubin, Total 10/07/2022 1.4 (A) 0.2 - 1.3 mg/dL Final Alkaline Phosphatase 10/07/2022 73 38 - 113 U/L Final AST 10/07/2022 28 14 - 40 U/L Final ALT 10/07/2022 20 10 - 54 U/L Final Glucose 10/07/2022 97 74 - 99 mg/dL Final BUN 10/07/2022 40 (A) 9 - 24 mg/dL Final Creatinine 10/07/2022 1.18 0.73 - 1.22 mg/dL Final Sodium 10/07/2022 141 136 - 144 mmol/L Final Potassium 10/07/2022 4.3 3.7 - 5.1 mmol/L Final Chloride 10/07/2022 100 97 - 105 mmol/L Final CO2 10/07/2022 29 22 - 30 mmol/L Final Anion Gap 10/07/2022 12 9 - 18 mmol/L Final Estimated Glomerular Filtration Ra* 10/07/2022 60 >=60 mL/min/1.73m Final Cholesterol, Total 10/07/2022 105 <200 mg/dL Final Triglyceride 10/07/2022 53 <150 mg/dL Final HDL Cholesterol 10/07/2022 55 >39 mg/dL Final Non HDL Cholesterol 10/07/2022 50 <130 mg/dL Final Fasting Time 10/07/2022 12 hrs Final VLDL Cholesterol 10/07/2022 11 <30 mg/dL Final TC:HDL Ratio 10/07/2022 1.91 <5.10 Final LDL Cholesterol 10/07/2022 39 <100 mg/dL Final LDL:HDL Ratio 10/07/2022 0.71 <2.54 Final Vitamin D 25 Hydroxy 10/07/2022 50.3 31.0 - 80.0 ng/mL Final TSH 10/07/2022 1.320 0.270 - 4.200 mIU/L Final Free T4 10/07/2022 1.3 0.9 - 1.7 ng/dL Final NT Pro BNP 10/07/2022 3,295 (A) <450 pg/mL Final Iron 10/07/2022 149 41 - 186 ug/dL Final TIBC 10/07/2022 195 (A) 232 - 386 ug/dL Final Transferrin Saturation 10/07/2022 76.4 (A) 15.0 - 57.0 % Final Radiology: Pathology: FINAL DIAGNOSIS A-C. 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 Diagnosis Comment The bone marrow is mildly hypercellular for age (overall approximately 30%). Blasts are not increased. There is dyserythropoiesis with increased ring sideroblasts (exceeding 50% of erythroid forms), along with morphologic changes as described below. There is also mild dysmegakaryopoiesis with a subset of forms with nuclear lobes. 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 Cytogenetics and myeloid NGS are currently pending and results will be reported separately and in an addendum (along with final classification) when available. The case was reviewed by Dr. Tigist Mcqueen, who agrees with this assessment. 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 By counts low risk but awaiting karyotyping - Discussed MDS with patient and possible treatment options available - awaiting EPO level, if not significantly elevated can trial ABRAHAM - will also await karyotype to determine if luspatercept or revlimid are possible options Randa Rowell DO Hematology/Oncology [facility] - [facility] During this patient visit I have spent approximately 30 minutes out of 35 in counseling regarding test results and coordinating care. documented in this encounterMercy Health [facility]12-28-2022 Instructions* Patient Instructions* Randa Rowell DO - 11/05/2022 11:26 AM EST What are myelodysplastic syndromes? Myelodysplastic syndromes (MDS) are a group of conditions that involve the blood. Blood is made up of different types of cells. These cells are made in the center of bones, in a part called the bone marrow. When people have MDS, their bone marrow does not work normally. It makes abnormal blood cells and does not make enough normal blood cells. This can cause symptoms. What are the symptoms of MDS? Some people with MDS have no symptoms. They might find out that they have MDS after they have bloodtests for another reason. Other people do have symptoms. They might: ?Feel weak, tired, or dizzy ?Have trouble thinking clearly ?Have trouble breathing ?Bruise or bleed more easily than usual ?Get infections more easily or more often than usual Is there a test for MDS? Yes. To test for MDS, your doctor or nurse can do: ?Blood tests ?Bone marrow biopsy - During this procedure, a small sample of the bone marrow is removed with a needle. Then a doctor looks at the cells under a microscope to see if abnormal cells are present. There are different types of MDS. Your doctor will use your test results to figure out which type you have. How is MDS treated? The right treatment for you will depend, for the most part, on the type of MDS you have, your symptoms, and your overall health. Most treatments do not cure MDS. But treatments can improve symptoms and help people feel better. Doctors usually treat MDS with one or more of the following: ?Blood transfusions - A blood transfusion is when a person gets blood that was given (donated) by another person. ?Medicines - Doctors can use different types of medicines to treat MDS. These medicines work in different ways. Some medicines help the bone marrow make more blood cells. Other medicines affect the body's infection-fighting system. ?Chemotherapy - Chemotherapy is the medical term for medicines that kill cancer cells or stop them from growing. It can be used to target the abnormal cells found in MDS. ?Bone marrow transplant (also called stem cell transplant) - This treatment uses chemotherapy to kill the abnormal cells in the bone marrow. These cells are then replaced with donor cells. The donor cells can come from different places. They usually come from people whose blood matches yours. Bone marrow transplant is the only treatment that can cure MDS. Your doctor or nurse might also talk with you about being in a clinical trial. A clinical trial is a research study that uses volunteers to test new treatments or new combinations of current treatments. documented in this encounterMer[facility]12-16-2022 Surgical operation note* Brief Op Note - Jesus Manuel White MD, - 10/24/2022 12:47 PM EST INTERVENTIONAL RADIOLOGY POST PROCEDURE NOTE DATE: 10/24/22 NAME: Srini Luis LOG ID: [id number] Pre-Procedure Diagnosis: Macrocytic anemia. Post Procedure Diagnosis: Same. Geoscientist: Dr. Jesus Manuel White Procedure: CT guided bone marrow biopsy Anesthesia: Moderate sedation Findings: Successful CT guided bone marrow biopsy, left posterior iliac crest. Estimated Blood Loss: Minimal (Less Than 25 mL). Specimen: Bone marrow aspirate and core biopsy Complications: None Full report with procedural details to follow and will become available under Imaging Reports. Please contact for any questions or concerns. documented in this encounterMercy Health [facility]12-16-2022 History and physical note * Jesus Manuel White MD, MD - 10/24/2022 12:17 PM EST UPDATED HISTORY AND PHYSICAL EXAMINATION SERVICE DATE: 10/24/2022 SERVICE TIME: 12:17 PM PHYSICAL EXAM MUST BE COMPLETED ON ADMISSION The History and Physical (completed in the past 30 days) has been reviewed and the patient has beenexamined. The contents accurately reflect the patient's condition with the following additions or revisions since the H&P was completed. Examination indicates no changes. This H&P can be found in the Electronic Medical Record dated 10/16/22. SIGNATURE: Jesus Manuel White MD PATIENT NAME: Srini Luis DATE: October 24, 2022 TIME: 12:17 PM PAGER: documented in this encounterMercy Health [facility]12-16-2022 Miscellaneous Notes* Sedation Documentation - Charlette Herrera RN - 10/24/2022 11:53 AM EST Home going instructions reviewed with patient, acknowledges understanding of instruction. documented in this encounterMercy Health [facility]12-15-2022 Miscellaneous Notes* Telephone Encounter - Israel Priutt DO - 10/23/2022 6:02 PM EST Please reach out to the patient to let him know that I do not have Aldactone on the patients medication list The patients diuretic remains Lasix 20 mg twice daily I believe he is doing well on the Lasix for edema and fluid management very well Thanks Israel Pruitt DO documented in this encounterMercy Health [facility]12-15-2022 History of Present illness Narrative* Rosa Garcia OT/George - 10/23/2022 3:34 PM EST Episode Visit Count: 2 Therapist That Will Accept/Oversee The Plan Of Care: Kelsey Garcia Start of Care Date: 10/06/22 Onset Date: 08/29/22 (R CVA) REHABILITATION AND SPORTS THERAPY OCCUPATIONAL THERAPY ON-ROAD DRIVING ASSESSMENT-#2 SESSION SUBJECTIVE: Narinder indicated that he had finished up his home PT and that was awaiting the home care nurse to come by and discharge him soon. He also shared that he is having bone marrow biopsy procedure the next day and that his daughter was in from [place] to take him to the same. She was present at the start and end of this session indicating that she is a PT herself and has been closely followingand involved in her dad's recovery while feeling that he is doing well. Narinder verbalized that he doesfeel ready to return to driving and was anxious to get this assessment completed. OBJECTIVE MEASURES WITH LEVEL OF FUNCTION: This therapist traveled to Narinder's home in [place] where the drive started and ended. Discussed that he would drive to the grocery store in [place] where he likes to go as one of the farther locations he will drive to. Talked about caodaism while that is in [place] but a female friend who lives in his neighborhood also goes there and has been/will continue to provide him a ride to same. ENVIRONMENT: Location: Residential, Rural, , Urban, Parking Lot, and Multi-ambar Road Traffic: Light and Moderate Weather: Overcast Road Conditions: Dry Mileage driven: 16.2 miles while mostly rural roadways; no interstate highway driving completed nornecessary MODIFICATIONS: Steering Device: NA Turn Signal: Standard Hand Controls: NA Mirrors: Standard Cushions: None however did move drivers seat into highest position as he sits very low naturally; discussed best seat position given his height issues and later discussed with his daughter so they would check same in his vehicle PHYSICAL PERFORMANCE: Use of Controls: No Deficits noted Physical Limitations: None OBSERVATION SKILLS: No deficits noted in this area. GAP ACCEPTANCE: No deficits noted in this area AMBAR CHANGING/MERGING: No deficits noted in this area LIMIT LINE/STOPPING: No deficits noted in this area. REGULATION OF SPEED: Under Posted Limit > 5 MPH while discussed with him that he needs to stay aware of his speed andtraffic is backing up behind him while recommending if normal road conditions, that he maintain speed within 5 MPH of posted limits which he acknowledged and agreed with PATH OF TRAVEL: No deficits noted in this area SIGNALING: Consistently signaled. PARKING: satisfactory GENERAL AWARENESS: He demonstrated consistent awareness throughout the drive including use of defensive driving techniques when in more traffic around the area of the grocery store; his decreased speed was on the rural roads which is likely related to his level of comfort when driving on the same while he verbalized plans to keep more aware of same TREATMENT: On Road Driving Assessment: completed the behind the wheel portion of session ASSESSMENT: Srini Luis tolerated today's treatment visit well. He demonstrated functional performance overall including being able to appropriately respond to feedback provided. No further formal OT services indicated. PLAN: Family should continue to monitor Narinder's overall status and provide ongoing support as they have been doing. SUMMARY AND RECOMMENDATIONS *The information in this report indicates the ability of the auto haulaway driver to operate a motor vehicle on this date only. Due to the complex nature of the safe operation of a motor vehicle, and considering the demands of integrating changing environmental conditions, and visual, cognitive, and physical skills, successful completion of this program is not a guarantee of safe driving in the future. RECOMMENDATION: NARINDER DEMONSTRATED NECESSARY SKILLS FOR THIS THERAPIST TO RECOMMEND THAT HE IS ABLE TO RETURN TO SAFE OPERATION OF A MOTOR VEHICLE WITH THESE RESTRICTIONS: AVOID NIGHT DRIVING AND LOW LIGHT SITUATIONS (I.e. fog, snow, moderate to heavy rain, dusk/ilana); AVOID LONG DISTANCE DRIVING UNLESS ACCOMPANIED BY OTHER LICENSED AUTOMOTIVE SALES REPRESENTATIVE TO SHARE THE DRIVING; DO NOT DRIVE WHEN NOT FEELING WELL; DO NOT DRIVE WHEN ANY EXTREME WEATHER CONDITIONS; DRIVE WHEN LESS TRAFFIC ABLE TO. This therapist will provide Narinder with information regarding safe driving skills, crash avoidance, tips for monitoring driving, and when to stop driving for his reference. Billing: Total Treatment Time Minutes (timed/untimed) 60 minutes Drivers Follow Up per 60 min (30325): 1:1 time 60 min Total time: 60 minutes TUSHAR Danielle, CDRS, CDI Certified Mortgage Processing Clerk Manager Packaging documented in this encounterMercy Health [facility]12-08-2022 [facility]12-08-[facility]22 Instructions* Patient Instructions* Christa Paris RN - 10/16/2022 1:59 PM EST Thank you for visiting the [facility] today. KEEP UP THE GREAT WORK!!! Please weigh daily and record. Read your food labels and watch for hidden sodium. Keep your sodium intake between 8453-5493 mg daily. 500-650 mg per meal. Continue to eat small, frequent meals. Try to include a form of protein with every meal. Keep your fluid intake at 48-64 ounces /day. Increase your activity as tolerated. Call the [facility] ([phone]) for AN APPOINTMENT (NO WALK-IN VISITS) if you have changes in symptoms or increase in weight of 3 lbs in one day or 5 lbs in a week. Thank you, Christa Paris RN documented in this encounterMercy Health [facility]12-08-2022 Nurse Note* Christa Paris RN - 10/16/2022 1:59 PM EST [id number] and his daughter came to the [facility] for a follow-up visit. Patient came via wheelchair but does ambulate at home with the help of a cane. He did have complaints of fatigue with ambulation. VS completed. Reminded patient of proper BP monitoring technique (empty bladder, feet flat, back supported and arm at level of heart). Patient is weighing daily. Discussed the purpose of daily weights in the management and early intervention of Heart Failure. Encouraged patient to continue to monitor daily. Medications reviewed and patient stated that he is compliant with them. He states that he is watching sodium carefully but does admit to decreased appetite. Does admit to rare dining out. [id number]-DrwlTara Neal CNP in to examine and educate patient. No orders received. [id number] was provided with emphasis on the need to weigh daily, read labels, monitorNa/fluids, monitoring for signs/symptoms, and when to call the [facility] for early intervention. Discussed importance of balancing sodium throughout the day for a goal of 500-650 mg per meal (3401-1052 mg per day) and to limit fluids to 48-64 ounces per day. Holiday eating guidelines provided at this visit. Encouraged the patient to call the [facility] with any questions/concerns. Discussed home exercise (walking, bands, arm exercises) and home safety (no area rugs, get up slowly, no rushing to answer phone/door) guidelines. Encouraged him to increase activity as tolerated. Follow up in 6 months with RN or as needed per OFFICE MACHINES SALES REPRESENTATIVE recommendation. documented in this encounterMercy Health [facility]12-08-2022 History of Present illness Narrative* Tara Neal APRN.OFFICE MACHINES SALES REPRESENTATIVE - 10/16/2022 1:54 PM EST HISTORY OF PRESENT ILLNESS 86 year old male who presents with a history of coronary artery disease status post four-vessel bypass surgery about 1 year ago while on vacation in [place], paroxysmal atrial fibrillation, hypertension, hyperlipidemia, hypothyroidism, grade 2 diastolic dysfunction and an ejection fraction of 68%.He is know to Dr. Minor. He was last seen in HF clinic on 07/17/2022. At that time his weight was 180 pounds and he received his afternoon dose of IV Lasix in the clinic. Since his last visit, he was hospitalized from 09/15 -09/18/2022 after presenting with symptomatic bradycardia. Initial EKG showedevidence of complete heart block. His beta-pritesh therapy was discontinued and a metabolic assessment was completed which was negative. He remained bradycardic and he was seen by cardiology who recommended pacemaker placement which was performed on September 17 without complications. Today, he presents for 3 month follow up. He states he is doing well. He has had fatigue. He is working with home physical and occupational therapy. He also has a home health nurse. He reports that his weights have been stable. He denies dyspnea, lower extremity swelling, lightheadedness, dizziness, syncope, chestpain, palpitations, orthopnea, PND. He follows in device clinic. 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 2017 when he's been off medication Nocturnal hypoxemia On oxygen at night Osteoarthritis, generalized Pacemaker 09/17/2022 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 PAF (paroxysmal atrial fibrillation) (HCC) 2020 Post CABG atrial fibrillation PVC's (premature ventricular contractions) RBBB Status post ligation of left atrial appendage 07/2021 At time of CABG PAST SURGICAL HISTORY Procedure Laterality Date ANKLE RIGHT OP SURGERY Right 12/18/2020 Dr Elba Sherman [facility] ARTHROPLASTY TOTAL SHOULDER 11/09/2008 right ARTHROSCOPY OF JOINT UNLISTED Elbow right CABG (4) VEIN GRAFTS & ARTERIAL GRAFT(S) 07/21/2021 In [facility] COLONOSCOPY FLX DX W/COLLJ SPEC WHEN PFRMD 09/01/2005 Colonoscopy COLONOSCOPY FLX DX W/COLLJ SPEC WHEN PFRMD 09/27/2015 Colonoscopy PAST SURGICAL HISTORY OF 07/21/2021 Coronary Artery Bypass Graft x 4 REMOVAL OF TONSILS,<12 Y/O S $ DUAL CHMBR PACER [id number] Left 09/17/2022 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 Social History Tobacco Use Smoking status: Former Types: Cigarettes Quit date: 08/11/1989 Years since quittin.2 Smokeless tobacco: Never Tobacco comments: quit 18-19 years ago Vaping Use Vaping Use: Never used Substance Use Topics Alcohol use: Yes Alcohol/week: 12.5 standard drinks Types: 2 Glasses of Wine (5oz), 2 Cans of Beer (12oz), 1 Mixed Drinks per week Comment: 1-2 beers per week Drug use: No FAMILY HISTORY Problem Relation Age of Onset Heart Mother Heart Father CHF Colon Cancer No Family History Prostate Cancer No Family History Blood Clots No Family History NO PE OR DVT REVIEW OF SYSTEMS CONSTITUTIONAL: No fatigue, malaise, fevers, chills, night sweats, weight loss, or weight gain. CARDIOVASCULAR: No chest pain, orthopnea, edema, palpitations, syncope, claudications, FELDMAN, SOB, orPND. RESPIRATORY: No cough, hemoptysis, or wheezing. No dyspnea at rest. GENITOURINARY: No Dysuria, hesitancy, urgency, hematuria, or incontinence. ENDOCRINE: No cold or heat intolerance, polyurea, polyphagia, or polydipsia. CURRENT MEDICATIONS metoprolol tartrate, short acting, (LOPRESSOR) 25 mg tablet Take 1/2 tablet by mouth every 12 hours. New lower dose since in the hospital setting Sep 16 - Sep 18 cyanocobalamin (VITAMIN B-12) 1,000 mcg tab Take 1,000 mcg by mouth once daily. rivaroxaban (XARELTO) 20 mg tablet Take 1 tablet by mouth daily with dinner. Resume Sep 20 2022 furosemide (LASIX) 20 mg tablet Take 1 tablet by mouth twice daily. atorvastatin (LIPITOR) 40 mg tablet Take 0.5 tablets by mouth once daily. New lower dose as of 2021 levothyroxine (SYNTHROID) 112 mcg tablet Take 1 tablet by mouth once daily. ferrous sulfate 325 mg (65 mg iron) tablet Take 325 mg by mouth three times daily with meals. polyethylene glycol 3350 (MIRALAX, GLYCOLAX) 17 gram packet Take 17 g by mouth once daily as neededfor constipation. Dissolve dose in 4 - 8 ounces of liquid and take as directed. 1/2 capful every other day aspirin, enteric coated (ASPIRIN, ENTERIC COATED) 81 mg EC tablet Take 81 mg by mouth once daily. cholecalciferol (VITAMIN D3) 1,000 unit tab tablet Take 1,000 Units by mouth once daily. MULTIVITAMIN TABLET Take 1 tablet by mouth once daily. ALLERGIES Allergen Reactions Simvastatin Other: See Comments Elevated CK PHYSICAL EXAMINATION 10/16/22 1400 BP: (!) 120/40 BP Site: Left Arm BP Position: Sitting BP Cuff Size: Regular Adult Pulse: 64 Resp: 18 SpO2: 100% Weight: 76.6 kg (168 lb 12.8 oz) Height: 170.2 cm (5' 7) CONSTITUTIONAL: Well developed, well nourished, no acute distress. HEAD: Normal normocephalic, atraumatic NECK: No bruits, no thyromegaly, no JVD, no HJR SKIN: Good turgor, no lesions, warm CARDIOVASCULAR: Regular rate and rhythm. Normal S1 and S2; no S3 or S4. No murmurs. No pericardial rub. RESPIRATORY: Lungs clear to auscultation bilaterally; no significant wheezing, rhonchi, or rales. ABDOMEN: soft. Bowel sounds are present in all 4 quadrants. No organomegaly, non-tender. GENITOURINARY: No costovertebral angle tenderness upon palpation. LOWER EXTREMITIES: no lower extremity swelling PSYCHIATRIC: Alert and oriented to person, place, and time; lucid. LAST LAB DATA CK 155 07/12/2014 Troponin I 0.050 07/04/2022 WBC 6.91 10/07/2022 RBC 2.60 10/07/2022 HGB 9.7 10/07/2022 Hematocrit 28.9 10/07/2022 MCV 111.2 10/07/2022 MCH 37.3 10/07/2022 MCHC 33.6 10/07/2022 RDW-CV 19.0 10/07/2022 Platelet Count 306 10/07/2022 MPV 11.6 10/07/2022 Neut% 68.5 10/07/2022 Lymph% 17.1 10/07/2022 Weld% 11.6 10/07/2022 Eosin% 3.2 09/19/2019 Baso% 1.0 10/07/2022 Abs Neut (ANC) 4.73 10/07/2022 Abs Weld 0.80 10/07/2022 Abs Eosin 0.10 10/07/2022 Abs Baso 0.07 10/07/2022 Glucose 97 10/07/2022 BUN 40 10/07/2022 Creatinine 1.18 10/07/2022 Sodium 141 10/07/2022 Potassium 4.3 10/07/2022 Chloride 100 10/07/2022 CO2 29 10/07/2022 Protein, Total 6.7 10/07/2022 Albumin 4.3 10/07/2022 Calcium 9.8 10/07/2022 Alkaline Phosphatase 73 10/07/2022 Bilirubin, Total 1.4 10/07/2022 AST 28 10/07/2022 ALT 20 10/07/2022 PT Sec 12.0 09/16/2022 APTT 31.1 09/16/2022 PT INR 1.2 09/16/2022 Magnesium 2.2 09/18/2022 TSH 1.320 10/07/2022 Triglyceride 53 10/07/2022 HDL Cholesterol 55 10/07/2022 LDL Chol, Marva 39 10/07/2022 Cholesterol, Total 105 10/07/2022 CARDIAC WORKUP: Echocardiogram (09/16/2022): - The left ventricle is normal in size. There is moderate concentric left ventricular hypertrophy. Left ventricular systolic function is normal. EF = 68 5% (2D 4-ch.) Grade II left ventricular diastolic dysfunction. - The right ventricle is dilated. Right ventricular systolic function is mildly decreased. - The left atrial cavity is mildly dilated. - The right atrial cavity is dilated. Mild to moderate TR with RVSP 46 mmhg with moderate PHTN Mild to moderate MR with Moderate MAC - The visualized aorta is borderline dilated with a maximal dimension of 3.8 cm. LV Ejection Fraction (%) Date Value 09/16/2022 68 07/07/2022 55 I personally reviewed the patient's labs along with records of their prior cardiac evaluation and their outside hospital records. Assessment & Plan 1. Heart failure with preserved ejection fraction: Last echo 09/2022 with grade 2 diastolic dysfunction. He is warm and dry on exam. Continue current Lasix 20 mg daily. Continue sodium and fluid restricted diet for HF. Discussed symptoms of when to notify HF Clinic. 2. Coronary artery disease: Status post CABG. no anginal component. On metoprolol, aspirin and atorvastatin. 3. Paroxysmal atrial fibrillation: Rate controlled and rhythm irregular. He is on Xarelto for anticoagulation. 4. Complete heart block s/p PPM: Placed 09/17 after presenting to the hospital with symptomatic bradycardia. Site healed. He is following in device clinic. He is scheduled to follow up with cardiology in 3 months. He will follow up in HF Clinic in 6 months, or sooner if needed. GINA Barrett documented in this [facility]12[facility]2022 [facility] Miscellaneous Notes* Telephone Encounter - Valentina Lake - 10/09/2022 11:31 AM EST Spoke with Jennifer in IR. Patient will be contacted by IR to schedule biopsy documented in this encounterMer[facility]12-01-2022 History of Present illness Narrative* Randa Rowell, DO - 10/09/2022 11:14 AM EST HEMATOLOGY/ONCOLOGY INITIAL CONSULT Srini Luis 1935 October 09, 2022 Referred by: SELF Diagnosis: Macrocytic anemia, possible MDS CC: My blood counts are low HPI: Srini Luis is a 86 year old male w/ PMHx macrocytic anemia, CAD s/p 4V CABG, CVA, pAfib, HTN, hypothyroidism, heart block s/p pacemaker who presents macrocytic anemia. In review of his records, he does have a hx of B12 deficiency back in 2018, which appears to be whgen his anemia began. He has since progressively been more anemic. During this time he has also had significant cardiac diseases requiring treatment. He remains on MVI currently, even with supplementation of b12 he remains siognificantly macrocytic. No significant other cytopenias. No night sweats, no abnormal weight changes or weight loss. 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 2017 when he's been off medication Nocturnal hypoxemia On oxygen at night Osteoarthritis, generalized Pacemaker 09/17/2022 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 PAF (paroxysmal atrial fibrillation) (HCC) 2020 Post CABG atrial fibrillation PVC's (premature ventricular contractions) RBBB Status post ligation of left atrial appendage 07/2021 At time of CABG PAST SURGICAL HISTORY Procedure Laterality Date ANKLE RIGHT OP SURGERY Right 12/18/2020 Dr Arreola [facility] ARTHROPLASTY TOTAL SHOULDER 11/09/2008 right ARTHROSCOPY OF JOINT UNLISTED Elbow right CABG (4) VEIN GRAFTS & ARTERIAL GRAFT(S) 07/21/2021 In [facility] COLONOSCOPY FLX DX W/COLLJ SPEC WHEN PFRMD 09/01/2005 Colonoscopy COLONOSCOPY FLX DX W/COLLJ SPEC WHEN PFRMD 09/27/2015 Colonoscopy PAST SURGICAL HISTORY OF 07/21/2021 Coronary Artery Bypass Graft x 4 REMOVAL OF TONSILS,<12 Y/O S $ DUAL CHMBR PACER [id number] Left 09/17/2022 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 Current Outpatient Medications Medication Sig Dispense Refill metoprolol tartrate, short acting, (LOPRESSOR) 25 mg tablet Take 1/2 tablet by mouth every 12 hours. New lower dose since in the hospital setting Sep 16 - Sep 18 90 tablet 3 cyanocobalamin (VITAMIN B-12) 1,000 mcg tab Take 1,000 mcg by mouth once daily. rivaroxaban (XARELTO) 20 mg tablet Take 1 tablet by mouth daily with dinner. Resume Sep 20 2022 90 tablet 2 furosemide (LASIX) 20 mg tablet Take 1 tablet by mouth twice daily. 180 tablet 3 atorvastatin (LIPITOR) 40 mg tablet Take 0.5 tablets by mouth once daily. New lower dose as of 2021 90 tablet 3 levothyroxine (SYNTHROID) 112 mcg tablet Take 1 tablet by mouth once daily. 90 tablet 3 ferrous sulfate 325 mg (65 mg iron) tablet Take 325 mg by mouth three times daily with meals. polyethylene glycol 3350 (MIRALAX, GLYCOLAX) 17 gram packet Take 17 g by mouth once daily as neededfor constipation. Dissolve dose in 4 - 8 ounces of liquid and take as directed. 1/2 capful every other day aspirin, enteric coated (ASPIRIN, ENTERIC COATED) 81 mg EC tablet Take 81 mg by mouth once daily. cholecalciferol (VITAMIN D3) 1,000 unit tab tablet Take 1,000 Units by mouth once daily. MULTIVITAMIN TABLET Take 1 tablet by mouth once daily. 0 No current facility-administered medications for this visit. ALLERGIES Allergen Reactions Simvastatin Other: See Comments Elevated CK FAMILY HISTORY Problem Relation Age of Onset Heart Mother Heart Father CHF Colon Cancer No Family History Prostate Cancer No Family History Blood Clots No Family History NO PE OR DVT Social History Tobacco Use Smoking status: Former Types: Cigarettes Quit date: 08/11/1989 Years since quittin.1 Smokeless tobacco: Never Tobacco comments: quit 18-19 years ago Vaping Use Vaping Use: Never used Substance Use Topics Alcohol use: Yes Alcohol/week: 12.5 standard drinks Types: 2 Glasses of Wine (5oz), 2 Cans of Beer (12oz), 1 Mixed Drinks per week Comment: 1-2 beers per week Drug use: No Review of Systems: A complete ROS was obtained and is otherwise neg except as noted in HPI Physical Exam: BP 110/60 Pulse 92 Temp (Src) 97.2 (Temporal Artery) Ht 5' 7.008 (1.70m) Wt 166 lb 6.4 oz (75.5kg) SpO2 98% BMI 26.06 kg/(m^2). ECOG PS: 2 General: Aox3, NAD HEENT: EOMI, PERRLA, sclera anicteric, MMM Neck: Supple, no thyroid nodules, no JVD, no adenopathy Chest: CTAB w/o w/r/r Heart: RRR w/o m/r/g. Abdomen: Soft, nontender, nondistended, bowel sounds present, no organomegaly or mass Extremities: No edema, no erythema 2+ DP Pulses Neurological: CN2-12 grossly intact Skin: Warm and dry with no rashes or ulcerations. Nodes: No palpable adenopathy in the cervical, supraclavicular, infraclavicular, or axillary regions. Hematologic: no bruising or petechiae. Psychiatric: Alert and oriented x3 Labs CBC: Recent Labs 10/07/22 0931 WBC 6.91 HB 9.7* HCT 28.9* PLT 306 MCV 111.2* RDWCV 19.0* NEUTP 68.5 ABSNEUT 4.73 LYMPHP 17.1 MONOP 11.6 COAG: No results for input(s): APTT, INR in the last 168 hours. BMP: Recent Labs 10/07/22 0931 GLUC 97 NA 141 K 4.3 CHLOR 100 CO2 29 ANION 12 BUN 40* CREAT 1.18 CHEM: Recent Labs 10/07/22 0931 ALB 4.3 TPROT 6.7 CA 9.8 Latest Reference Range & Units 01/11/09 07:41 04/11/09 12:00 04/23/09 11:39 04/24/09 04:55 04/25/09 06:55 01/19/14 10:09 12/01/14 11:10 03/14/19 08:06 06/09/19 07:42 07/19/19 09:13 09/19/19 08:43 11/16/19 08:30 04/13/20 09:07 07/12/20 08:40 08/01/20 14:50 09/25/20 09:15 11/20/20 08:18 03/22/21 08:04 08/13/21 12:06 09/20/21 19:07 11/12/21 08:36 03/12/22 07:46 03/31/22 12:04 05/27/22 08:20 07/04/22 14:25 07/05/22 02:50 07/06/22 03:36 07/09/22 03:39 08/22/22 11:37 08/24/22 04:39 08/28/22 05:02 09/02/22 04:02 09/04/22 05:34 09/15/22 12:22 09/16/22 05:37 09/16/22 13:17 09/18/22 03:19 10/07/22 09:31 Hemoglobin 13.0 - 17.0 g/dL 14.6 14.2 13.6 11.6 (L) 10.7 (L) 14.4 13.9 11.3 (L) 10.9 (L) 10.4 (L) 11.1 (L) 10.3 (L) 10.6 (L) 10.2 (L) 9.5 (L) 9.4 (L) 9.5 (L) 8.7 (L) 8.9 (L) 9.3 (L) 8.8 (L) 8.4 (L) 8.3 (L) 9.1 (L) 8.3 (L) 8.5 (L) 8.1 (L) 7.7 (L) 8.0 (L) 8.3 (L) 8.2 (L) 8.9 (L) 8.4 (L) 9.7 (L) MCV 80.0 - 100.0 fL 95.9 93.0 94.6 97.0 99.3 108.8 (H) 112.5 (H) 113.9 (H) 114.0 (H) 111.1 (H) 112.7 (H) 114.3 (H) 107.5 (H) 108.6 (H) 114.9 (H) 116.6 (H) 105.7 (H) 104.9 (H) 114.8 (H) 118.1 (H) 117.5 (H) 115.3 (H) 111.8 (H) 112.8 (H) 111.2 (H) 110.7 (H) 109.4 (H) 109.2 (H) 108.8 (H) 110.0 (H) 110.7 (H) 108.2 (H) 110.5 (H) 110.9 (H) 110.4 (H) 111.2 (H) (L): Data is abnormally low (H): Data is abnormally high Latest Reference Range & Units 06/09/19 07:42 07/19/19 09:13 09/19/19 08:43 11/16/19 08:30 11/28/19 09:40 04/13/20 09:07 07/12/20 08:40 08/01/20 14:38 09/25/20 09:15 11/20/20 08:18 5/14/21 08:04 03/21/22 13:33 07/06/22 03:36 08/24/22 04:39 09/01/22 09:51 09/17/22 14:16 09/18/22 03:19 Vitamin B12 193 - 986 pg/mL 170 (L) 774 1,075 758 428 365 378 679 747 602 655 413 657 498 551 Folate >3.0 ng/mL >20.0 57.20 (H) >20.0 >20.0 46.6 (L): Data is abnormally low (H): Data is abnormally high Reviewed all blood work noting significant macrocytic anemia, b12 deficiency 2019 now sufficiently replete, no folic acid def Radiology: Pathology: Assessment and Plan: Srini Luis is a 86 year old male w/ PMHx macrocytic anemia, CAD s/p 4V CABG, CVA, pAfib, HTN, hypothyroidism, heart block s/p pacemaker who presents macrocytic anemia # Macrocytic anemia - chronic and progressively worsening, initially had some b12 deficiency, but now sufficiently replete - currently on MVI, will check copper level as he is ingesting significant amount of zinc with it - Check EPO level as will need for possible MDS - obtain BMBx to assess for underlying MDS, by his blood counts, possibly low risk - discussed with patient concern for MDS, discussed what MDS is and possible treatment options if found depending on risk stratification Randa Rowell DO Hematology/Oncology [facility] Medical Decision Making: Problems: Moderate: 1+ chronic illnesses with change Data: Unique test result(s) reviewed: 3+ Medical Decision Making Level: 4 - Moderate documented in this encounterMer[facility]12-01-2022 Instructions* Patient Instructions* Randa Rowell DO - 10/09/2022 11:06 AM EST What are myelodysplastic syndromes? Myelodysplastic syndromes (MDS) are a group of conditions that involve the blood. Blood is made up of different types of cells. These cells are made in the center of bones, in a part called the bone marrow. When people have MDS, their bone marrow does not work normally. It makes abnormal blood cells and does not make enough normal blood cells. This can cause symptoms. What are the symptoms of MDS? Some people with MDS have no symptoms. They might find out that they have MDS after they have bloodtests for another reason. Other people do have symptoms. They might: ?Feel weak, tired, or dizzy ?Have trouble thinking clearly ?Have trouble breathing ?Bruise or bleed more easily than usual ?Get infections more easily or more often than usual Is there a test for MDS? Yes. To test for MDS, your doctor or nurse can do: ?Blood tests ?Bone marrow biopsy - During this procedure, a small sample of the bone marrow is removed with a needle. Then a doctor looks at the cells under a microscope to see if abnormal cells are present. There are different types of MDS. Your doctor will use your test results to figure out which type you have. How is MDS treated? The right treatment for you will depend, for the most part, on the type of MDS you have, your symptoms, and your overall health. Most treatments do not cure MDS. But treatments can improve symptoms and help people feel better. Doctors usually treat MDS with one or more of the following: ?Blood transfusions - A blood transfusion is when a person gets blood that was given (donated) by another person. ?Medicines - Doctors can use different types of medicines to treat MDS. These medicines work in different ways. Some medicines help the bone marrow make more blood cells. Other medicines affect the body's infection-fighting system. ?Chemotherapy - Chemotherapy is the medical term for medicines that kill cancer cells or stop them from growing. It can be used to target the abnormal cells found in MDS. ?Bone marrow transplant (also called stem cell transplant) - This treatment uses chemotherapy to kill the abnormal cells in the bone marrow. These cells are then replaced with donor cells. The donor cells can come from different places. They usually come from people whose blood matches yours. Bone marrow transplant is the only treatment that can cure MDS. Your doctor or nurse might also talk with you about being in a clinical trial. A clinical trial is a research study that uses volunteers to test new treatments or new combinations of current treatments. documented in this encounterMer[facility]11-28-2022 History of Present illness Narrative* Rosa Garcia OT/George - 10/06/2022 4:40 PM EST Episode Visit Count: 1 Therapist That Will Accept/Oversee The Plan Of Care: Kelsey Garcia Start of Care Date: 10/06/22 Onset Date: 08/29/22 (R CVA) Patient Identified by Name and Date of : Yes REHABILITATION AND SPORTS THERAPY OCCUPATIONAL THERAPY INSTRUMENTAL ADL AND COMMUNITY MOBILITY EVALUATION SUBJECTIVE: Srini Luis is a 86 year old male seen today for OT functional community mobility assessment due to diagnosis of CVA. His daughter Denice accompanied him to the appointment. He shared that he spent almost 2 weeks in the hospital including inpatient rehab before going home on 09/11/22 but returned to the hospital on 09/15/22 due to cardiac issues having pacemaker put in on 09/17/22 then returning back home following. He currently has home OT and PT to address ongoing deficits which he feels is very helpful. He and his daughter shared that the past year has been challenging as his 06/10/22 after having cancer for just a few months followed by him having a bout of heart failure/significant weight gain/hospitalization to address same. He has 4 children while daughter Denice closest at about 1 hour away and Liza in [place]. Both of his sons live out of state but areinvolved and supportive. He very much wants to return to driving and is hopeful he will be able to. Functional Limitations: walking in the community;heavy exertion;driving Prior Level of Function: Independent without limitations Home Environment Patient Lives With: Self/Alone (his 06/10/22) Assistance Available: Other: See Comment Comments: lives in independent living part of [facility] with emergency assist nearby and one meal provided daily Home Type: Apt/Condo Entry To Home: No Stairs Number Of Stairs To Bed/Bath: 0 Stairs to Bed/Bath with: No Rail Tub/Shower Type: Walk in shower with multiple grabbars and shower seat Laundry: Per pt completes on own: in condo Equipment Owned: Emergency Response System;Grab Bars-Shower;Grab Bars- Toilet;Wheeled Walker;Rollator;Shower Chair;Elevated Toilet Seat Transportation: SUV;Travels as a passenger (not driving currently) Patient Goals: to return to being able to provide for own transportation needs Intake Information: Prescription present Previous Treatment: Acute Hospital ;Acute Rehab ;Home Therapy ;Occupational Therapy;Physical Therapy Falls Interview: Two or more falls in the last year;Fall without injury in the last year Relevant History Past Relevant Medical Conditions: Arthritis;Cardiac;Cerebral Vascular Accident;Hypertension;ThyroidDisease Highest Level of Education: High School Preferred Language: Haitian Right or Left Handed: Right Employment: Retired Recreation / Current Exercise: does exercise as part of home therapy Hobbies / Interests: caodaism, time with family/friends Home Environment Patient Lives With: Self/Alone (his 06/10/22) Assistance Available: Other: See Comment Comments: lives in independent living part of [facility] with emergency assist nearby and one meal provided daily Home Type: Apt/Condo Entry To Home: No Stairs Number Of Stairs To Bed/Bath: 0 Stairs to Bed/Bath with: No Rail Tub/Shower Type: Walk in shower with multiple grabbars and shower seat Laundry: Per pt completes on own: in condo Equipment Owned: Emergency Response System;Grab Bars-Shower;Grab Bars- Toilet;Wheeled Walker;Rollator;Shower Chair;Elevated Toilet Seat Transportation: SUV;Travels as a passenger (not driving currently) Activities of Daily Living: Modified Independent Instrumental Activities of Daily Living: Modified Independent and assist from daughter for meals/groceries as she comes at least 1x/week, son monitors finances, cleaning assist weekly; is planning toreturn to eating main meal at facility in near future Driving History: 70 years while has [employer]; last drove the previous day when his son was visiting and supervised him driving around the complex State: [place] License/Permit #: [id number] Expires: 12/17/22 Restrictions: Corrective lenses; 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 Violation HX: none 5 Yr. MVA HX: none Handicap Parking Placard: YES while it is his 's 1. Srini Luis self report indicates an awareness of: Weakness, incoordination, or limited motionin left side Decreased balance Fatigue, or poor endurance 2. Srini Luis expressed confidence regarding driving when driving alone and on familiar roads/routes. 3. Srini Luis expressed no concerns regarding driving. OBJECTIVE MEASURES WITH LEVEL OF FUNCTION: SENSORIMOTOR ASSESSMENT: Hand dominance: Right Level of Function Relevant to I ADL, Community Mobility, and Driving: Right UE: Sufficient Left UE: Sufficient although he does have decreased coordination and abnormal sensation in LUE distally; also currently limited with regards to AROM for L shoulder since pacemaker replacement Sample Grader: Sufficient Right LE: Sufficient Left LE: Sufficient Sitting Balance: Sufficient although posture of leaning to right and slightly forward Head / Neck: decrease AROM for rotation to left (just since his pacemaker procedure) and extension Ambulation: Marginal while he is currently using wheeled walker for community mobility but mentioned he has goal of moving to straight cane which he is working on with his PT Transfers: Sufficient Loading of Device: did not observe but will during the behind the wheel portion ASSESSMENT OF SENSORIMOTOR FUNCTION: Compatible with Driving VISION SCREENING: Vision Vision Deficits: Wears corrective lenses Corrective lenses: glasses about 3-4 years old while last formal eye exam towards end of 2020 Corrective Lenses: Wears glasses / contact lenses for driving Distant Acuity: Binocular: 20 / 20 Nighttime Glare: Right: 20 / 40 Left: 20 / 30 Color Perception: pass Depth Perception: Pass Contrast Sensitivity: mild impairment for L eye while moderate impairment for R eye Peripheral Vision: Within legal limits for driving although slow to be aware of L peripheral vision Right Eye: Acknowledged all stimuli. Left Eye: Acknowledged all stimuli. Pursuits: WNL Saccades: WNL Convergence: decreased movement with B eyes Nystagmus: Not Apparent Diplopia: No complaints Strabismus: No OU Cataracts: No OU-previously had B cataract surgery Glaucoma: No. OU Other Eye Conditions / Diseases Reported: he indicated that [facility] ASSESSMENT OF VISUAL FUNCTION: Compatible with Driving while likely restrictions for low light situations COGNITIVE / PERCEPTUAL ASSESSMENT: SHORT BLESSED TEST Short Blessed Test 1. What Year Is It Now?: Correct 2. What Month Is It Now?: Correct 3. What Time is it? (WIthin 1 hour): Correct 4. Count Aloud Backwards 20 to 1 (Errors): 1 5. Months of the Year in Reverse Order (Errors): 0 6. Memory Phrase (Errors) : 0 Short Blessed Final Score: 2 Short Blessed Test Scorin-8; Normal to minimal impairment 9-19; Moderate impairment 20-28; Severe impairment [email or web address] Immediate Recall: WNL @ 04/14 digits; he did verbalize that he is aware of having diminished hearing in his L ear but would not be helped by hearing aide Visual Scanning/Attention: Martin Making Part B (sec): 99 sec 50th percentile norm for age group: 70-79; Part A: 80 seconds, Part B: 196 seconds Giselle Clock Drawing Test: Srini Luis correctly included 7/8 criteria for this test. He failed to include or correctly place: the numbers equally spaced, or nearly so, from the edge of the [place] According to The Physician's Guide to Assessing and Counseling Older Drivers, 2003, any incorrect element in the Giselle Clock Scoring signals a need for intervention. 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 Simulator: Simple Brake Reaction Time: Average Distance: 71.75 feet (Normal = 60 feet) R foot only pedal operation method with this therapist allowing for increased practice prior to testing to try and help him to improve his performance; noted that this was end of session with fatiguepossibly becoming involved which could have inhibited his performance Education: Education Learning Preferences: Explanation Barriers: None Learning/educational needs: Safety;Plan of Care Education Provided: Yes, see treatment interventions for education provided Education Provided To: Patient;Family (daughter that accompanied him to appointment) Education Mode/Type: Explanation/Discussion Response to Education/Teach Back: States/Identifies TREATMENT: Evaluation Self-Usp Management: 1: refer to documentation for details 2: provided patient and daughter with education and support Skilled Intervention: Skilled judgment in the selection of proper modification for activity of daily living/home management based on clinical presentation, deficits, and needs. Educated the patient regarding recommendations and provided written instruction to facilitate compliance. Reviewed patient specific diagnosis in relation to activities of daily living/home management. Activity progression based on professional judgement. 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 Due to the complex nature of the safe operation of a motor vehicle, and considering the demands of integrating changing environmental conditions, and visual, cognitive, and physical skills, successful completion of this program is not a guarantee of safe driving in the future. 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 He presents with impairments of decreased convergence, decreased fine motor coordination/sensation with L hand, below average with simulated brake reaction distance, decreased right eye contrast sensivity, slow to be aware of left peripheral vision, slightly slower than normal for average visual perceptual screening responses (when comparing to 80 year old). He may benefit from skilled occupational therapy services to complete the functional task portion of this assessment which is scheduled about 3 weeks from now with this therapist going to patient's home where that part of assessment will start and end. RECOMMENDATIONS: ADL/IADL Recommendations: ongoing support provided by family including for transportation currently, weekly visits from daughter for various needs, etc. Driving Recommendations: REFRAIN FROM DRIVING OUTSIDE OF DRIVERS REHABILITATION WHILE BEHIND THE WHEEL ASSESSMENT SCHEDULED IN APPROXIMATELY 3 WEEKS Recommended Complete Eye Exam: as indicated by retail security professional Prognosis: Good Good due to: current objective clinical presentation;acuteness of condition;good support system/ coping skills Goals for Episode of Care created on 10/06/22 through 11/06/22 Patient will complete clinical training and/or testing at modified [place] level in preparation for returning to driving. Patient will complete functional mobility task with good safety awareness during completion of functional portion of this assessment/behind the wheel. Planned Interventions, Frequency, and Duration: Current Frequency: 1 visit Duration: 1 visit Total Number of Visits Planned: 1 Patient to be see for Mortgage Processing Clerk rehab evaluation PLAN FOR NEXT VISIT: completed behind the wheel portion of assessment Patient demonstrates good understanding of plan of care and treatment. The above goals and plan of care were discussed and agreed upon by patient/family. Billing: Total Treatment Time Minutes (timed/untimed) 120 minutes Evaluation - Moderate Complexity (73095) Self Care / Home Management (12964): 1:1 time: 60 minutes (4 units: 53-67 mins) Total time: 120 minutes TUSHAR Danielle, CDRS, CDI Certified Mortgage Processing Clerk Manager Packaging documented in this encounterMer[facility]11-23-2022 History of Present illness Narrative* Stephany Abraham LPN - 10/01/2022 11:45 AM EST EKG Check EKG performed per protocol on Srini Luis Name and reviewed and verified with patient. Allergies reviewed and verified with patient. Current Outpatient Medications Medication Sig metoprolol tartrate, short acting, (LOPRESSOR) 25 mg tablet Take 1/2 tablet by mouth every 12 hours. New lower dose since in the hospital setting Sep 8 - Sep 18 cyanocobalamin (VITAMIN B-12) 1,000 mcg tab Take 1,000 mcg by mouth once daily. rivaroxaban (XARELTO) 20 mg tablet Take 1 tablet by mouth daily with dinner. Resume Sep 20 2022 furosemide (LASIX) 20 mg tablet Take 1 tablet by mouth twice daily. atorvastatin (LIPITOR) 40 mg tablet Take 0.5 tablets by mouth once daily. New lower dose as of 2021 levothyroxine (SYNTHROID) 112 mcg tablet Take 1 tablet by mouth once daily. ferrous sulfate 325 mg (65 mg iron) tablet Take 325 mg by mouth three times daily with meals. polyethylene glycol 3350 (MIRALAX, GLYCOLAX) 17 gram packet Take 17 g by mouth once daily as neededfor constipation. Dissolve dose in 4 - 8 ounces of liquid and take as directed. 1/2 capful every other day aspirin, enteric coated (ASPIRIN, ENTERIC COATED) 81 mg EC tablet Take 81 mg by mouth once daily. cholecalciferol (VITAMIN D3) 1,000 unit tab tablet Take 1,000 Units by mouth once daily. MULTIVITAMIN TABLET Take 1 tablet by mouth once daily. spironolactone (ALDACTONE) 25 mg tablet Take 1 tablet by mouth once daily. No current facility-administered medications for this visit. Patient is taking medication as prescribed Yes Took medication today Yes Experiencing side effects No Physician notified of EKG readings Yes Wound check s/p Biotronik pacer. Dressing Removed, incision is without s/s of infection. Follow up and restrictions given. Stephany Abraham LPN documented in this encounterMercy Health [facility]11-21-2022 Miscellaneous Notes* Telephone Encounter - Jayashree Farmer APRN.CNP - 09/29/2022 12:24 PM EST Noted. Jayashree Farmer APRN.CNP * Telephone Encounter - Yaritza Rodriguez - 09/29/2022 11:49 AM EST [facility] called to report that the patient fell over the weekend. He did not report and injuries following the fall. documented [facility]11-17-2022 Instructions* Patient Instructions* Israel Pruitt DO - 09/25/2022 12:03 PM EST 1. The patient to be back to see us in March 2023 or sooner as needed 2. He will continue to work with PT and OT at home he is independent he will continue to work with them to try to see if he can liberalize himself from walker and just use a cane although he will continue to use walker at this time to avoid fall 3. Patient will follow-up with [facility] hematology on October 09. He will have CBC and BMP and aniron level on either October 07 or October 08 prior to that encounter which they will have that laboratory result for their encounter. 4. No other changes in medication 5. Patient will be following up with Dr. Minor and cardiology no October 01. 6. Please call with any questions or concerns. 7. We reviewed the patient's pacemaker site no evidence of infection he will call with any concernsof any bleeding bruising any hematoma or findings that would suggest infection please continue to keep the dressing in place until seen by cardiology next week. documented in this encounterMercy Health [facility]11-17-2022 History of Present illness Narrative* Israel Pruitt DO - 09/25/2022 11:41 AM EST Patient presents with: Hospital F/U HPI: Srini Luis is a 86 year old male who presents to the office today for routine hospital follow-upwith us today. Patient was admitted to [facility] on September 15 and discharged on the with complete heart block requiring pacemaker placement on September [address] Minor from cardiology. Patient is already feeling quite a bit better he is having increased energy and positive response to having pacemaker placed Patient was discharged from the acute care setting back to home after being seen and cleared by physical therapy occupational therapy to be back home and proceed on with home therapy with the use of a walker. Patient is being seen already by physical therapy occupational therapy and beginning on a program at home and is independent setting The patients seeing Dr. Minor from cardiology on Thursday prior to the next day. He will be seen and evaluated regarding his pacemaker placement The patient denies any shortness of breath or chest discomfort no concerns regarding the pacemaker placement and the pacemaker placement site. The patient's bowel and bladder habits seem to be doing fine The patients feeling that he is doing well with a walker , working with therapy to ultimately move to just using a cane . Sleep is good Good upbeat mood as well REVIEW OF SYSTEMS: CONSTITUTIONAL: No fevers, chills, nightsweats, unintended weight loss HEENT: Denies frequent or severe heaches, nasal congestion/sinus symptoms, problematic allergy problems. EYES: No diplopia or blurry vision. CARDIOVASCULAR: No chest pain, dyspnea, palpitations, orthopnea, PND, ankle edema. PULM: No dyspnea, unexplained cough. GI: No dysphagia/odynophagia, problematic reflux, constipation, diarrhea, changes in stool habits, hematochezia, melena. : No new urinary complaints, including dysuria, gross hematuria or pyuria. NEURO: No new balance problems, peripheral weakness/paresthesias or numbness of concern. MUSC-SKEL: No new joint pain, swelling, or erythema. PSY: No concerns regarding depression, anxiety or panic. 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 2017 when he's been off medication Nocturnal hypoxemia On oxygen at night Osteoarthritis, generalized Pacemaker 09/17/2022 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 PAF (paroxysmal atrial fibrillation) (HCC) 2020 Post CABG atrial fibrillation PVC's (premature ventricular contractions) RBBB Status post ligation of left atrial appendage 07/2021 At time of CABG PAST SURGICAL HISTORY Procedure Laterality Date ANKLE RIGHT OP SURGERY Right 12/18/2020 Dr Arreola [facility] ARTHROPLASTY TOTAL SHOULDER 11/09/2008 right ARTHROSCOPY OF JOINT UNLISTED Elbow right CABG (4) VEIN GRAFTS & ARTERIAL GRAFT(S) 07/21/2021 In [facility] COLONOSCOPY FLX DX W/COLLJ SPEC WHEN PFRMD 09/01/2005 Colonoscopy COLONOSCOPY FLX DX W/COLLJ SPEC WHEN PFRMD 09/27/2015 Colonoscopy PAST SURGICAL HISTORY OF 07/21/2021 Coronary Artery Bypass Graft x 4 REMOVAL OF TONSILS,<12 Y/O S $ DUAL CHMBR PACER [id number] Left 09/17/2022 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 FAMILY HISTORY Problem Relation Age of Onset Heart Mother Heart Father CHF Colon Cancer No Family History Prostate Cancer No Family History Blood Clots No Family History NO PE OR DVT Social History Tobacco Use Smoking status: Former Types: Cigarettes Quit date: 08/11/1989 Years since quittin.1 Smokeless tobacco: Never Tobacco comments: quit 18-19 years ago Vaping Use Vaping Use: Never used Substance Use Topics Alcohol use: Yes Alcohol/week: 12.5 standard drinks Types: 2 Glasses of Wine (5oz), 2 Cans of Beer (12oz), 1 Mixed Drinks per week Comment: 1-2 beers per week Drug use: No ACTIVE PROBLEM LIST 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 Mixed Hyperlipidemia Hypothyroidism Generalized Osteoarthrosis, Unspecified Site Primary Localized Osteoarthrosis, Shoulder Region Osteoarthrosis, Unspecified Whether Generalized Or Localized, Other Specified Sites Spinal Stenosis of Lumbar Region With Neurogenic Claudication Insomnia Erectile Dysfunction Back Pain Essential Hypertension, Benign S/P Shoulder Replacement B12 Deficiency Vitamin D Deficiency Macrocytosis Venous Stasis of Both Lower Extremities Cad (Coronary Artery Disease) Diverticulosis History of Anemia Hx of Cabg Hx of Colonoscopy Hypertension Lumbar Stenosis Status Post Ligation of Left Atrial Appendage Osteoarthritis, Generalized Paf (Paroxysmal Atrial Fibrillation) ([facility]) Pvc's (Premature Ventricular Contractions) Benign Hypertension Rbbb Acute Stroke Due to Ischemia ([facility], 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) Malnutrition of Moderate Degree ([place], [facility]) Weakness Generalized Pacemaker ALLERGIES Allergen Reactions Simvastatin Other: See Comments Elevated CK MEDICATIONS: cyanocobalamin (VITAMIN B-12) 1,000 mcg tab Take 1,000 mcg by mouth once daily. metoprolol tartrate, short acting, (LOPRESSOR) 25 mg tablet Take 1/2 tablet by mouth every 12 hours. New lower dose since in the hospital setting Sep 16 - Sep 18 rivaroxaban (XARELTO) 20 mg tablet Take 1 tablet by mouth daily with dinner. Resume Sep 20 2022 spironolactone (ALDACTONE) 25 mg tablet Take 1 tablet by mouth once daily. furosemide (LASIX) 20 mg tablet Take 1 tablet by mouth twice daily. atorvastatin (LIPITOR) 40 mg tablet Take 0.5 tablets by mouth once daily. New lower dose as of 2021 levothyroxine (SYNTHROID) 112 mcg tablet Take 1 tablet by mouth once daily. ferrous sulfate 325 mg (65 mg iron) tablet Take 325 mg by mouth three times daily with meals. polyethylene glycol 3350 (MIRALAX, GLYCOLAX) 17 gram packet Take 17 g by mouth once daily as neededfor constipation. Dissolve dose in 4 - 8 ounces of liquid and take as directed. 1/2 capful every other day aspirin, enteric coated (ASPIRIN, ENTERIC COATED) 81 mg EC tablet Take 81 mg by mouth once daily. cholecalciferol (VITAMIN D3) 1,000 unit tab tablet Take 1,000 Units by mouth once daily. MULTIVITAMIN TABLET Take 1 tablet by mouth once daily. EXAM:BP 114/60 (BP Site: Left Arm, BP Position: Sitting, BP Cuff Size: Large Adult) Pulse 73 Temp 36.3 C (97.4 F) (Temporal) Ht 171.7 cm (5' 7.6) Wt 78.2 kg (172 lb 6.4 oz) SpO2 96% BMI 26.52 kg/m Last Wt 09/25/22 : 78.2 kg (172 lb 6.4 oz) 09/15/22 : 75.3 kg (166 lb) 09/11/22 : 78.6 kg (173 lb 3.2 oz) 09/04/22 : 76.7 kg (169 lb) PHYSICAL EXAM: Weight is up x 6 pounds , BMI is 26 Weight at home 167 pounds ( clothing ?? 5 pounds ) The patients manual blood pressure today was 116/56 General Appearance: Well appearing, alert, in no acute distress, well-hydrated, well nourished.. Skin: Skin color, texture, turgor normal, no suspicious rashes or lesions. No evidence of hematoma or ecchymosis or any findings to suggest infection around his pacemaker insertion site left upper chest. Dressing is still applied and it will be there until he is seen by cardiology next week. Lymph Nodes: No cervical lymphadenopathy, No supraclavicular lymphadenopathy, No axillary lymphadenopathy. and No inguinal lymphadenopathy. Head: Normocephalic, no masses, lesions, tenderness or abnormalities. Eyes: Anicteric sclera. Pupils are equally round and reactive to light. Extraocular movements are intact. . Nose/Sinuses: Nares normal, septum midline, mucosa normal, no drainage or sinus tenderness. Oropharynx: Lips, mucosa, and tongue normal, teeth and gums normal, oropharynx normal. Neck: Supple, no adenopathy; thyroid symmetric, normal size, no bruits. Lungs: Lungs clear to auscultation. No wheezing, rhonchi, rales. Heart: RRR without murmur, gallop, or rubs. No ectopy. Abdomen: Normal abdominal exam, Abdomen soft, non-tender. Bowel sounds normal. No masses, organomegaly. Extremities: No deformities, edema, skin discoloration, clubbing or cyanosis. Good capillary refill. . Musculoskeletal: No joint swelling, deformity, or tenderness. Back:no pain to palpation of vertebrae, good flexion and extension, good range of motion, no muscletenderness, reflexes are 2+ and symmetric, motor and sensory appear to be normal, negative SLR test, no evidence of scoliosis. Peripheral Pulses: Normal. Neurologic: Gait normal. Reflexes normal and symmetric. Sensation grossly intact.. Rectal:n/a Component Latest Ref Rng & Units 09/15/2022 09/16/2022 09/16/2022 09/18/2022 5:37 AM 1:17 PM WBC 3.70 - 11.00 k/uL 6.18 7.61 9.35 8.88 RBC 4.20 - 6.00 m/uL 2.31 (L) 2.19 (L) 2.39 (L) 2.30 (L) Hemoglobin 13.0 - 17.0 g/dL 8.3 (L) 8.2 (L) 8.9 (L) 8.4 (L) Hematocrit 39.0 - 51.0 % 25.0 (L) 24.2 (L) 26.5 (L) 25.4 (L) MCV 80.0 - 100.0 fL 108.2 (H) 110.5 (H) 110.9 (H) 110.4 (H) MCH 26.0 - 34.0 pg 35.9 (H) 37.4 (H) 37.2 (H) 36.5 (H) MCHC 30.5 - 36.0 g/dL 33.2 33.9 33.6 33.1 RDW-CV 11.5 - 15.0 % 19.6 (H) 19.8 (H) 19.6 (H) 19.8 (H) Platelet Count 150 - 400 k/uL 249 224 270 240 MPV 9.0 - 12.7 fL 11.6 11.8 11.9 11.4 Neut% % 58.8 73.5 Abs Neut (ANC) 1.45 - 7.50 k/uL 3.64 6.54 Lymph% % 24.8 9.7 Abs Lymph 1.00 - 4.00 k/uL 1.53 0.86 (L) Weld% % 14.4 13.2 Abs Weld <0.87 k/uL 0.89 (H) 1.17 (H) Eosin% % 1.0 2.6 Abs Eosin <0.46 k/uL 0.06 0.23 Baso% % 0.5 0.5 Abs Baso <0.11 k/uL 0.03 0.04 Immature Gran % % 0.5 0.5 IMMATURE GRANS (ABS) <0.10 k/uL 0.03 0.04 NRBC /100 WBC 0.5 0.3 Absolute nRBC <0.01 k/uL 0.03 (H) 0.03 (H) 0.05 (H) 0.03 (H) DTYPE Auto Auto Component Latest Ref Rng & Units 09/18/2022 WBC 3.70 - 11.00 k/uL 8.88 RBC 4.20 - 6.00 m/uL 2.30 (L) Hemoglobin 13.0 - 17.0 g/dL 8.4 (L) Hematocrit 39.0 - 51.0 % 25.4 (L) MCV 80.0 - 100.0 fL 110.4 (H) MCH 26.0 - 34.0 pg 36.5 (H) MCHC 30.5 - 36.0 g/dL 33.1 RDW-CV 11.5 - 15.0 % 19.8 (H) Platelet Count 150 - 400 k/uL 240 MPV 9.0 - 12.7 fL 11.4 Neut% % 73.5 Abs Neut (ANC) 1.45 - 7.50 k/uL 6.54 Lymph% % 9.7 Abs Lymph 1.00 - 4.00 k/uL 0.86 (L) Weld% % 13.2 Abs Weld <0.87 k/uL 1.17 (H) Eosin% % 2.6 Abs Eosin <0.46 k/uL 0.23 Baso% % 0.5 Abs Baso <0.11 k/uL 0.04 Immature Gran % % 0.5 IMMATURE GRANS (ABS) <0.10 k/uL 0.04 NRBC /100 WBC 0.3 Absolute nRBC <0.01 k/uL 0.03 (H) DTYPE Auto Glucose 70 - 100 mg/dL 114 (H) BUN 7 - 26 mg/dL 35 (H) Creatinine 0.50 - 1.40 mg/dL 1.14 Sodium 136 - 145 mmol/L 139 Potassium 3.5 - 5.1 mmol/L 4.8 Chloride 98 - 107 mmol/L 103 CO2 21 - 32 mmol/L 30 Anion Gap 5 - 16 mmol/L 6 Calcium 8.5 - 10.5 mg/dL 8.6 eGFR >=60 mL/min/1.73m 63 Retic % 0.4 - 2.0 % 1.7 Abs Retic 0.018 - 0.100 M/uL 0.039 Magnesium 1.6 - 2.6 mg/dL 2.2 Vitamin B12 193 - 986 pg/mL 551 ASSESSMENT/PLAN: 1. Complete heart block (HCC) - ICD9: 426.0, ICD10: I44.2 (primary diagnosis) Stable , now has pacer on board with excellent results 2. Paroxysmal atrial fibrillation (HCC) - ICD9: 427.31, ICD10: I48.0 Stable 3. Hx of four vessel coronary artery bypass graft - ICD9: V15.1, ICD10: Z95.1 Stable , no anginal sxs 4. Essential hypertension, benign - ICD9: 401.1, ICD10: I10 - good control - Continue current medication(s) - Recommended regular aerobic exercise. - Recommend home blood pressure monitoring, to bring results in on next visit - Goal of BP <130/80 5. Anemia, unspecified type - ICD9: 285.9, ICD10: D64.9 Stable during the hospitalization. We will also reevaluate hemoglobin levels either on October 07 or October 08 prior to his visit with hematology on October 09 6. Numbness and tingling of left arm and leg - ICD9: 782.0, ICD10: R20.0, R20.2 Stable. Patient's strength in the upper and lower extremities are excellent. 7. Iron deficiency - ICD9: 280.9, ICD10: E61.1 Iron levels have been in slightly below goal despite being on iron supplementation 3 times daily. Will continue iron 3 times a day and he will be following up with hematology in 2 weeks on 8. Constipation due to slow transit - ICD9: 564.01, ICD10: K59.01 Doing fine at this time on MiraLAX 9. Ankle edema, bilateral - ICD9: 719.07, ICD10: M25.471, M25.472 No pitting edema on exam today I spent a total of 30 minutes on the date of the service which included preparing to see the patient, [id number] patient care, completing clinical documentation, obtaining and/or reviewing separately obtained history, performing a medically appropriate examination, counseling and educating the pat ient/family/caregiver, ordering medications, tests, or procedures, communicating with other HCPs (not separately reported), independently interpreting results (not separately reported), communicatingresults to the patient/family/caregiver, and care coordination (not separately reported). Israel Pruitt DO * Yadira Walsh LPN - 09/25/2022 11:10 AM EST Pt is here for a hospital follow up Medication list reviewed Yadira Walsh LPN documented in this encounterMercy Health [facility]11-15-2022 Miscellaneous Notes* Addendum Note - Jayashree Farmer APRN.CNP - 09/23/2022 4:41 PM ESTAddended by: JAYASHREE FARMER on: 09/23/2022 04:41 PM Modules accepted: Orders * Telephone Encounter - Jayashree Farmer APRN.CNP - 09/23/2022 4:41 PM EST Noted. Duplicates D/C. Jayashree Farmer APRN.MAURICIO * Telephone Encounter - Lena Cruz RN - 09/23/2022 4:16 PM EST Please see note below. Patient advised he may have the labs drawn when here in the office on , 09/25 Two sets of pending orders in chart at this time: On 09/11/2022, CBC w/Diff, Iron + TIBC ordered, with expected date of 09/25/2022 On 07/24/2022, CBC w/Diff, CMP, Lipid, Vit D, TSH, Free T4, Pro BNP were ordered, with expected dateof 09/11/2022 Lena Cruz RN * Telephone Encounter - Uriah Lopez 09/23/2022 3:20 PM EST Called patient and informed him that there is labs that needed to be done for his appointment. Patient states he doesn't have a way to get to the office before his appointment . Please adviseif needed. * Telephone Encounter - Rosa Blue APRN.CNP - 09/23/2022 3:06 PM EST Please forward to patient's PCP. Thanks, Rosa Blue APRN.CNP * Telephone Encounter - Cami Plasencia - 09/23/2022 3:01 PM EST Pt calling in wondering if he needs labs done for him appt on 09/25. Pt also wants to know that if labs are needed if hes able to get those done at his PCP's office. Please contact pt and advise. Thank you! Cami Plasencia documented in this encounterMercy Health [facility]11-11-2022 History of Present illness Narrative* Lena Cruz RN - 09/19/2022 3:07 PM EST Patient notified. He verbalizes understanding. Lena Cruz RN * Israel Pruitt DO - 09/19/2022 2:48 PM EST Yes resume B12 Israel Pruitt DO * Lena rCuz RN - 09/19/2022 12:21 PM EST TRANSITION CARE MANAGEMENT (TCM) INITIAL CONTACT Provider Action/FYI: 86 year old male admitted to [facility] from 09/15 - 09/18/2022 for symptomatic bradycardia, needed pacer. Appointments: NEURO / Dr. Rob - 09/23/2022 PCP / Dr. Pruitt - 09/25/2022 [facility] - 10/01/2022 Heart Failure Clinic, Tara Neal APRN, MAURICIO - 10/16/2022 [facility] - Start of Care visit tomorrow. Patient reports I have a lot more energy. Took a shower today. Daughter Liza is with patient. Left hand and meaty portion of arm remain swollen (infiltrated IV during admission). Advised may use warm compresses on site if desired. Pacer site dressings intact. Has pacer instructions placed at home for easy reference. Has resumed daily weights. Question: Resume taking Vitamin B12 1000 mcg daily? 09/01/2022 Vitamin B12 193 - 986 pg/mL 657 Initial contact with patient post discharge, spoke to patient and daughter, Liza. Patient identified by name and . TRANSITION CARE MANAGEMENT: Date of Outreach: 09/19/2022 09/08/2022 Outreach Attempt 1: - Contact Made Date of Discharge 09/18/2022 09/05/2022 Some recent data might be hidden SUMMARY: -Pt discharged from [facility] on 09/18/2022. -Follow up appointment on 09/25/2022. -Medication review done: Yes. -Admitted for: Symptomatic bradycardia, needed pacer CONCERNS: As above NEW MEDICATIONS: Metoprolol Tartrate 25 mg tablets, 1/2 tablet (12.5 mg) twice daily -- lower dose Xarelto 20 mg, resume taking 09/20/2022 MEDS HELD/DISCONTINUED: None BRIEF HOSPITAL COURSE: Copied / pasted from [facility] notes: PROCEDURES DURING HOSPITALIZATION: Pacer placed , Dr Minor , Sep 17 2022 HOSPITAL COURSE: Patient was admitted through the emergency department with symptomatic bradycardia to the CCU. Patient's initial EKG showed evidence of complete heart block The patient's ventricular rate was in the 30s. All metabolic assessment was negative including thyroid studies for any evidence of abnormal findings that would contribute to bradycardia. Patient was discontinued from taking his beta- pritesh therapy in hopes that this would make a difference for himin regards to bradycardia but this did not change his heart rate in the 30s and 40s. Patient was seen by cardiology specifically Dr. Minor who recommended pacemaker placement which took place on September 17 with no complications. Patient had been off of Xarelto and will return to Xarelto on September 20. Patient had a change in beta-pritesh therapy while in the hospital from his prior dose to 12-1/2 mg twice a day of metoprolol tartrate. A prescription was sent to the pharmacy. Stephywill have follow-up with us week of September 22 and follow-up with cardiology within the next 2 weeks. PT and OT saw the patient once again today after their initial assessment found the patient concerning for discharge back to home or independent living. The reassessment today found the patient fam ropriate for back to independent living with home health care and PT and OT. Patient will be home this evening transported by her daughter and will continue with the use of a walker at home at [facility] [place]. We will reach out to the patient tomorrow to have a phone encounter to make sure the patient is clear in regards to discharge med list and reconcile those meds on discharge. Lena Cruz RN documented in this encounterMercy Health [facility]11-11-2022 Miscellaneous Notes* Telephone Encounter - Minerva Herbert RN - 09/19/2022 11:44 AM EST Phone call received from Liza Pulido, patients daughter. Requested canceling and rescheduling hisnext appointment with the [facility] secondary to having follow up appointments with PCP, Cardiology and SN. Appt rescheduled for October 16, 2022. documented in this encounterMercy Health [facility] Hospital11-11-2022 History of Present illness Narrative* Ten Weber, [facility] - 09/19/2022 8:47 AM EST TRANSITION CARE MANAGEMENT (TCM) PHARMACY CONTACT Provider Action/FYI: TCM Medication Reconciliation completed for patient. See medication list table below for details. ACTION REQUIRED: D/t inadvertent confusion regarding metoprolol dose change, patient received full 25mg (50mg 1/2 tablet) last night and this morning- dtr agrees to call pharmacy and get new dosage (25mg 1/2 tablet BID) from [facility] pharmacy- route to PCP to review/FYI, confirmed at time of note per pharmacy records that new dosage was picked up Initial contact with patient post discharge, spoke to patient and family member, rojas De Jesus (per pt preference- dtr manages medications),. Patient identified by name and . Summary: -Pt discharged from [facility] on 09/18/22. -Follow up appointment on 09/25 card CHF, Defer to TCM hub RN for scheduling assistance. -Medication review done: Full medication review completed -Admitted for symptomatic bradycardia, needed pacer Patient was contacted by telephone, identified for pharmacist care from discharge call list, and gave consent to manage medications related to transitional care management pursuant to the consult agreement with the [facility]. Patient Concerns: Review and discussion of medications with family member, rojas De Jesus, as outlined in medication table below. Source of medication information obtained from Prescription bottle and Medication list. Dispense records from pharmacy also utilized to obtain additional medication fill history. See blue box regarding metoprolol. Dtr very thankful for call as pt would have taken wrong metoprolol dose without this pharmacist's intervention. No additional reported medication questions or concerns at this time. History of Present Illness: The following content has been copied and pasted from patient's discharge summary. If discharge summary unavailable, After Visit Summary or last pertinent inpatient notes are copied and pasted. 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 Patient's initial EKG showed evidence of complete heart block The patient's ventricular rate was in the 30s. All metabolic assessment was negative including thyroid studies for any evidence of abnormal findings that would contribute to bradycardia. Patient was discontinued from taking his beta- pritesh therapy in hopes that this would make a difference for himin regards to bradycardia but this did not change his heart rate in the 30s and 40s. Patient was seen by cardiology specifically Dr. Minor who recommended pacemaker placement which took place on September 17 with no complications. Patient had been off of Xarelto and will return to Xarelto on Thursday, September 20. Patient had a change in beta-pritesh therapy while in the hospital from his prior dose to 12-1/2 mg twice a day of metoprolol tartrate. A prescription was sent to the pharmacy. Stephywill have follow-up with us week of September 22 and follow-up with cardiology within the next 2 weeks. PT and OT saw the patient once again today after their initial assessment found the patient concerning for discharge back to home or independent living. The reassessment today found the patient fam ropriate for back to independent living with home health care and PT and OT. Patient will be home this evening transported by her daughter and will continue with the use of a walker at home at [facility] living at [place]. We will reach out to the patient tomorrow to have a phone encounter to make sure the patient is clear in regards to discharge med list and reconcile those meds on discharge. Transitions of Care Critical Issues: None LABS AND PROCEDURES PENDING AT DISCHARGE: No pending results. PATIENT CONDITION AT DISCHARGE: Stable DISCHARGE DISPOSITION: Home with Home Health Medication Reconciliation: Legend: Stopped, New, Changed, Added to list Medication List Medication Directions Comments Action/Plan aspirin, enteric coated (ASPIRIN, ENTERIC COATED) 81 mg EC tablet Take 81 mg by mouth once daily. Patient reportedly taking as prescribed without any issues atorvastatin (LIPITOR) 40 mg tablet Take 0.5 tablets by mouth once daily. New lower dose as of 2021 Pharmacy 08/05/22 [facility] [place] [address] - [address] [phone] Allergy/Contraindication: atorvastatin Reactions: Other: See Comments. Reaction type: Side Effect/Intolerance. User documented allergy severity: Medium. Drug Class Match with SIMVASTATIN (Class: [id number] REDUCTASE INHIBITORS). Elevated CK Last overridden by: Jayashree Farmer APRN.CNP on Aug 05, 2022 12:47 PM Reason: Previously Tolerated on pharmacy dispense records with recent fill hx Patient reportedly taking as prescribed without any issues Reviewed cholecalciferol (VITAMIN D3) 1,000 unit tab tablet Take 1,000 Units by mouth once daily. Patient reportedly taking as prescribed without any issues ferrous sulfate 325 mg (65 mg iron) tablet Take 325 mg by mouth three times daily with meals. Patient reportedly taking as prescribed without any issues furosemide (LASIX) 20 mg tablet Take 1 tablet by mouth twice daily. on pharmacy dispense records with recent fill hx Patient reportedly taking as prescribed without any issues levothyroxine (SYNTHROID) 112 mcg tablet Take 1 tablet by mouth once daily. on pharmacy dispense records with recent fill hx TSH Date Value 09/16/2022 2.031 mIU/L 03/12/2022 3.500 mIU/L 06/09/2019 3.480 uU/mL 03/14/2019 3.690 uU/mL ) Patient reportedly taking as prescribed without any issues Counseled administration to be taken first thing in the morning, with a full glass of water, 30 minbefore any other food/medications metoprolol tartrate, short acting, (LOPRESSOR) 25 mg tablet Take 1/2 tablet by mouth every 12 hours. New lower dose since in the hospital setting Sep 16 - Sep 18 vp software support these medications at [facility] Patient reportedly taking as prescribed without any issues Reviewed change- took 25mg last night and this morning Given pharmacy phone # - encouraged to pick remover correct 25mg tablets to split Patient's dtr verbalized understanding, agreeable to plan Discontinued: 09/18/2022 6:50 PM BOX MAKER dose on pharmacy dispense records with recent fill hx Split the old 50mg tablets before- mistakenly --see above and blue box- dtr counseled MULTIVITAMIN TABLET Take 1 tablet by mouth once daily. Patient reportedly taking as prescribed without any issues polyethylene glycol 3350 (MIRALAX, GLYCOLAX) 17 gram packet Take 17 g by mouth once daily as neededfor constipation. Dissolve dose in 4 - 8 ounces of liquid and take as directed. 1/2 capful every other day Prn rivaroxaban (XARELTO) 20 mg tablet Take 1 tablet by mouth daily with dinner. Resume Sep 20 2022 vp software support these medications at [facility] Resume tomorrow -09/20/22 start date Advised refill issued to [facility] pharmacy as well Patient's dtr verbalized understanding, agreeable to plan Discontinued: 09/18/2022 6:50 PM BOX MAKER dose spironolactone (ALDACTONE) 25 mg tablet Take 1 tablet by mouth once daily. on pharmacy dispense records with recent fill hx Patient reportedly taking as prescribed without any issues Preferred pharmacy: [facility] [place] [address] - [address] [facility] [phone] [id number] [facility] [id number] Estimated Creatinine Clearance: 43.5 mL/min (based on SCr of 1.14 mg/dL). 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 2017 when he's been off medication Nocturnal hypoxemia On oxygen at night Osteoarthritis, generalized Pacemaker 09/17/2022 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 PAF (paroxysmal atrial fibrillation) (HCC) 2020 Post CABG atrial fibrillation PVC's (premature ventricular contractions) RBBB Status post ligation of left atrial appendage 07/2021 At time of CABG Social History Tobacco Use Smoking status: Former Types: Cigarettes Quit date: 08/11/1989 Years since quittin.1 Smokeless tobacco: Never Tobacco comments: quit 18-19 years ago Vaping Use Vaping Use: Never used Substance Use Topics Alcohol use: Yes Alcohol/week: 12.5 standard drinks Types: 2 Glasses of Wine (5oz), 2 Cans of Beer (12oz), 1 Mixed Drinks per week Comment: 1-2 beers per week Drug use: No Immunization History Administered Date(s) Administered COVID-19 booster vaccine, age 12+ yr, bivalent ([employer]) 07/24/2022 COVID-19 original vaccine, age 12+ yr, monovalent ([employer] - PURPLE TOP) 12/04/2020 12/25/2020 08/20/2021 05/19/2022 Hepatitis A vaccine 04/10/1999 11/27/1999 Hepatitis B Adult 04/10/1999 05/17/1999 11/27/1999 Influenza 10/03/2015 Influenza Seasonal - High Dose - Age 65+ 08/11/2016 08/25/2017 09/16/2018 08/24/2019 10/10/2020 Influenza Seasonal Inj Age 3+ 09/07/2014 Influenza Vaccine, Split-Non Spec 08/01/2009 08/13/2010 08/19/2011 08/17/2012 Influenza Vaccine, Whole 09/21/2007 10/03/2008 Pneumococcal-13 Vac Conjugate 01/02/2015 Pneumovax 09/08/2001 TD Adult 02/07/2005 Tdap (Age 7+) 07/25/2015 Zostavax 11/20/2008 Zoster Recombinant (Shingrix) 05/04/2020 07/05/2020 influenza, high-dose, quadrivalent vaccine (FLUZONE HIGH DOSE QUADRIVALENT) 08/09/2021 07/24/2022 Additional follow up: Appointments for Next 60 Days Date Time Provider Location Dept Phone 09/25/2022 2:30 PM NURSE CARD [facility] [phone] 09/25/2022 3:00 PM TARA NEAL [phone] 10/01/2022 11:30 AM DEVICE CLINIC CARD UP ALYSSA OchoaS [phone] 10/06/2022 1:30 PM ROSA GARCIA [facility] [phone] 10/09/2022 10:30 AM RANDA ROWELL [facility] [phone] Interventions Made: Patient education/Medication counseling and Adherence counseling Pharmacist Recommendations Made None Care Coordination: Pharmacy contacted to facilitate patient care ([facility] records) Time spent on patient: 45-60 minutes TEN WEBER, PHARMACIST, [facility] [facility] Transitional Care Management September 19, 2022 2:42 PM [facility] History of Past illness Narrative* Problem Noted Date Resolved Date CHB (complete heart block) 09/17/202209/18 Overview: 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; Confirmed Blk below His by His Bundle Electrogram Symptomatic bradycardia 09/15/2022 09/18/20 22 CHF (congestive heart failur e), NYHA class I, acute on chronic, diastolic 07/04/2022 08/26/2022 Xerosis cutis 12/14/2012 01/02/2015 Pruritus 12/14/2012 01/02/2015 Actinic skin damage 12/14/2012 01/02/2015 Solar lentigo 12/14/2012 01/02/2015 Myasthenia gravis 04/19/2012 09/15/2022 Viral warts, unspecified 09/29/2010 015 Irritated//Inflamed Seborrheic Keratosis 010 01/02/2015 Follow-up examination, following unspecified dheeraj diane 06/11/2009 08/14/2009 ACTINIC DAMAGE///SOLAR SKIN DAMAGE NOS 04/07/200 8 01/02/2015 Dermatitis due to cosmetics 04/07/200812/11 ACTINIC DAMAGE///CHR SOLAR SKIN DAMAGE NOS 04/0701/02/2015 Other seborrheic keratosis 04/07/200801/02 SOLAR LENTIGINES///DYSCHROMIA OTHER 04/07/2008 01/02/2015 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 01/02/2015 Special screening for malignant neoplasms, colon 08/11/2005 01/02/2015 Follow-up examination following surgery 10/31/20 03 01/02/2015 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 of ant icoagulants with INR goal of 2.0-3.0 09/15/2022 Nocturnal hypoxemia 08/29/2022 Overview: On oxygen at night documented as of this encounter (statuses as of 09/19/2022) [facility] History of Past illness Narrative* Problem Noted Date Resolved Date CHB (complete heart block) 09/17/202209/18 Overview: 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; Confirmed Blk below His by His Bundle Electrogram Symptomatic bradycardia 09/15/2022 09/18/20 CHF (congestive heart failur e), NYHA class I, acute on chronic, diastolic 07/04/2022 08/26/2022 Xerosis cutis 12/14/2012 01/02/2015 Pruritus 12/14/2012 01/02/2015 Actinic skin damage 12/14/2012 01/02/2015 Solar lentigo 12/14/2012 01/02/2015 Myasthenia gravis 04/19/2012 09/15/2022 Viral warts, unspecified 09/29/2010 015 Irritated//Inflamed Seborrheic Keratosis 010 01/02/2015 Follow-up examination, following unspecified dheeraj diane 06/11/2009 08/14/2009 ACTINIC DAMAGE///SOLAR SKIN DAMAGE NOS 8 01/02/2015 Dermatitis due to cosmetics 04/07/200812/11 ACTINIC DAMAGE///CHR SOLAR SKIN DAMAGE NOS 04/0701/02/2015 Other seborrheic keratosis 04/07/200801/02 SOLAR LENTIGINES///DYSCHROMIA OTHER 04/07/2008 01/02/2015 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 01/02/2015 Special screening for malignant neoplasms, colon 08/11/2005 01/02/2015 Follow-up examination following surgery 10/31/20 03 01/02/2015 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 of ant icoagulants with INR goal of 2.0-3.0 09/15/2022 Nocturnal hypoxemia 08/29/2022 Overview: On oxygen at night documented as of this encounter (statuses as of 09/19/2022) [facility] of Past illness Narrative* Problem Noted Date Resolved Date CHB (complete heart block) 09/17/202209/18 Overview: 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; Confirmed Blk below His by His Bundle Electrogram Symptomatic bradycardia 09/15/2022 09/18/20 CHF (congestive heart failur e), NYHA class I, acute on chronic, diastolic 07/04/2022 08/26/2022 Xerosis cutis 12/14/2012 01/02/2015 Pruritus 12/14/2012 01/02/2015 Actinic skin damage 12/14/2012 01/02/2015 Solar lentigo 12/14/2012 01/02/2015 Myasthenia gravis 04/19/2012 09/15/2022 Viral warts, unspecified 09/29/2010 015 Irritated//Inflamed Seborrheic Keratosis 010 01/02/2015 Follow-up examination, following unspecified dheeraj diane 06/11/2009 08/14/2009 ACTINIC DAMAGE///SOLAR SKIN DAMAGE NOS 8 01/02/2015 Dermatitis due to cosmetics 04/07/200812/11 ACTINIC DAMAGE///CHR SOLAR SKIN DAMAGE NOS 04/0701/02/2015 Other seborrheic keratosis 04/07/200801/02 SOLAR LENTIGINES///DYSCHROMIA OTHER 04/07/2008 01/02/2015 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 01/02/2015 Special screening for malignant neoplasms, colon 08/11/2005 01/02/2015 Follow-up examination following surgery 10/31/2001/02/2015 USP current use of ant icoagulants with INR goal of 2.0-3.0 09/15/2022 Nocturnal hypoxemia 08/29/2022 Overview: On oxygen at night documented as of this encounter (statuses as of 09/19/2022) [facility] of Past illness Narrative* Problem Noted Date Resolved Date CHB (complete heart block) 09/17/202209/18 Overview: 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; Confirmed Blk below His by His Bundle Electrogram Symptomatic bradycardia 09/15/2022 09/18/20 CHF (congestive heart failur e), NYHA class I, acute on chronic, diastolic 07/04/2022 08/26/2022 Xerosis cutis 12/14/2012 01/02/2015 Pruritus 12/14/2012 01/02/2015 Actinic skin damage 12/14/2012 01/02/2015 Solar lentigo 12/14/2012 01/02/2015 Myasthenia gravis 04/19/2012 09/15/2022 Viral warts, unspecified 09/29/2010 015 Irritated//Inflamed Seborrheic Keratosis 010 01/02/2015 Follow-up examination, following unspecified dheerja diane 06/11/2009 08/14/2009 ACTINIC DAMAGE///SOLAR SKIN DAMAGE NOS 8 01/02/2015 Dermatitis due to cosmetics 04/07/200812/11 ACTINIC DAMAGE///CHR SOLAR SKIN DAMAGE NOS 04/0701/02/2015 Other seborrheic keratosis 04/07/200801/02 SOLAR LENTIGINES///DYSCHROMIA OTHER 04/07/2008 01/02/2015 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 01/02/2015 Special screening for malignant neoplasms, colon 08/11/2005 01/02/2015 Follow-up examination following surgery 10/31/20 03 01/02/2015 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 of ant icoagulants with INR goal of 2.0-3.0 09/15/2022 Nocturnal hypoxemia 08/29/2022 Overview: On oxygen at night documented as of this encounter (statuses as of 09/23/2022) [facility] of Past illness Narrative* Problem Noted Date Resolved Date CHB (complete heart block) 09/17/202209/18 Overview: 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; Confirmed Blk below His by His Bundle Electrogram Symptomatic bradycardia 09/15/2022 09/18/20 CHF (congestive heart failur e), NYHA class I, acute on chronic, diastolic 07/04/2022 08/26/2022 Xerosis cutis 12/14/2012 01/02/2015 Pruritus 12/14/2012 01/02/2015 Actinic skin damage 12/14/2012 01/02/2015 Solar lentigo 12/14/2012 01/02/2015 Myasthenia gravis 04/19/2012 09/15/2022 Viral warts, unspecified 09/29/2010 015 Irritated//Inflamed Seborrheic Keratosis 010 01/02/2015 Follow-up examination, following unspecified dheeraj diane 06/11/2009 08/14/2009 ACTINIC DAMAGE///SOLAR SKIN DAMAGE NOS 04/07/ 8 01/02/2015 Dermatitis due to cosmetics 04/07/200812/11 ACTINIC DAMAGE///CHR SOLAR SKIN DAMAGE NOS 04/0701/02/2015 Other seborrheic keratosis 04/07/200801/02 SOLAR LENTIGINES///DYSCHROMIA OTHER 04/07/2008 01/02/2015 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 01/02/2015 Special screening for malignant neoplasms, colon 08/11/2005 01/02/2015 Follow-up examination following surgery 10/31/20 03 01/02/2015 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 of ant icoagulants with INR goal of 2.0-3.0 09/15/2022 Nocturnal hypoxemia 08/29/2022 Overview: On oxygen at night documented as of this encounter (statuses as of 09/24/2022) [facility] of Past illness Narrative* Problem Noted Date Resolved Date CHB (complete heart block) 09/17/202209/18 Overview: 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; Confirmed Blk below His by His Bundle Electrogram Symptomatic bradycardia 09/15/2022 09/18/20 CHF (congestive heart failur e), NYHA class I, acute on chronic, diastolic 07/04/2022 08/26/2022 Xerosis cutis 12/14/2012 01/02/2015 Pruritus 12/14/2012 01/02/2015 Actinic skin damage 12/14/2012 01/02/2015 Solar lentigo 12/14/2012 01/02/2015 Myasthenia gravis 04/19/2012 09/15/2022 Viral warts, unspecified 09/29/2010 015 Irritated//Inflamed Seborrheic Keratosis 010 01/02/2015 Follow-up examination, following unspecified dheeraj diane 06/11/2009 08/14/2009 ACTINIC DAMAGE///SOLAR SKIN DAMAGE NOS 200 8 01/02/2015 Dermatitis due to cosmetics 04/07/200812/11 ACTINIC DAMAGE///CHR SOLAR SKIN DAMAGE NOS 04/0701/02/2015 Other seborrheic keratosis 04/07/200801/02 SOLAR LENTIGINES///DYSCHROMIA OTHER 04/07/2008 01/02/2015 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 01/02/2015 Special screening for malignant neoplasms, colon 08/11/2005 01/02/2015 Follow-up examination following surgery 10/31/20 03 01/02/2015 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 of ant icoagulants with INR goal of 2.0-3.0 09/15/2022 Nocturnal hypoxemia 08/29/2022 Overview: On oxygen at night documented as of this encounter (statuses as of 09/25/2022) [facility] of Past illness Narrative* Problem Noted Date Resolved Date CHB (complete heart block) 09/17/202209/18 Overview: 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; Confirmed Blk below His by His Bundle Electrogram Symptomatic bradycardia 09/15/2022 09/18/20 CHF (congestive heart failur e), NYHA class I, acute on chronic, diastolic 07/04/2022 08/26/2022 Xerosis cutis 12/14/2012 01/02/2015 Pruritus 12/14/2012 01/02/2015 Actinic skin damage 12/14/2012 01/02/2015 Solar lentigo 12/14/2012 01/02/2015 Myasthenia gravis 04/19/2012 09/15/2022 Viral warts, unspecified 09/29/2010 015 Irritated//Inflamed Seborrheic Keratosis 010 01/02/2015 Follow-up examination, following unspecified dheeraj diane 06/11/2009 08/14/2009 ACTINIC DAMAGE///SOLAR SKIN DAMAGE NOS 8 01/02/2015 Dermatitis due to cosmetics 04/07/200812/11 ACTINIC DAMAGE///CHR SOLAR SKIN DAMAGE NOS 04/0701/02/2015 Other seborrheic keratosis 04/07/200801/02 SOLAR LENTIGINES///DYSCHROMIA OTHER 04/07/2008 01/02/2015 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 01/02/2015 Special screening for malignant neoplasms, colon 08/11/2005 01/02/2015 Follow-up examination following surgery 10/31/20 03 01/02/2015 USP current use of ant icoagulants with INR goal of 2.0-3.0 09/15/2022 Nocturnal hypoxemia 08/29/2022 Overview: On oxygen at night documented as of this encounter (statuses as of 09/29/2022) [facility] of Past illness Narrative* Problem Noted Date Resolved Date CHB (complete heart block) 09/17/202209/18 Overview: 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; Confirmed Blk below His by His Bundle Electrogram Symptomatic bradycardia 09/15/2022 09/18/20 CHF (congestive heart failur e), NYHA class I, acute on chronic, diastolic 07/04/2022 08/26/2022 Xerosis cutis 12/14/2012 01/02/2015 Pruritus 12/14/2012 01/02/2015 Actinic skin damage 12/14/2012 01/02/2015 Solar lentigo 12/14/2012 01/02/2015 Myasthenia gravis 04/19/2012 09/15/2022 Viral warts, unspecified 09/29/2010 015 Irritated//Inflamed Seborrheic Keratosis 010 01/02/2015 Follow-up examination, following unspecified dheeraj diane 06/11/2009 08/14/2009 ACTINIC DAMAGE///SOLAR SKIN DAMAGE NOS 8 01/02/2015 Dermatitis due to cosmetics 04/07/200812/11 ACTINIC DAMAGE///CHR SOLAR SKIN DAMAGE NOS 04/0701/02/2015 Other seborrheic keratosis 04/07/200801/02 SOLAR LENTIGINES///DYSCHROMIA OTHER 04/07/2008 01/02/2015 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 01/02/2015 Special screening for malignant neoplasms, colon 08/11/2005 01/02/2015 Follow-up examination following surgery 10/31/20 03 01/02/2015 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 of ant icoagulants with INR goal of 2.0-3.0 09/15/2022 Nocturnal hypoxemia 08/29/2022 Overview: On oxygen at night documented as of this encounter (statuses as of 10/01/2022) [facility] of Past illness Narrative* Problem Noted Date Resolved Date CHB (complete heart block) 09/17/202209/18 Overview: 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; Confirmed Blk below His by His Bundle Electrogram Symptomatic bradycardia 09/15/2022 09/18/20 CHF (congestive heart failur e), NYHA class I, acute on chronic, diastolic 07/04/2022 08/26/2022 Xerosis cutis 12/14/2012 01/02/2015 Pruritus 12/14/2012 01/02/2015 Actinic skin damage 12/14/2012 01/02/2015 Solar lentigo 12/14/2012 01/02/2015 Myasthenia gravis 04/19/2012 09/15/2022 Viral warts, unspecified 09/29/2010 015 Irritated//Inflamed Seborrheic Keratosis 010 01/02/2015 Follow-up examination, following unspecified dheeraj diane 06/11/2009 08/14/2009 ACTINIC DAMAGE///SOLAR SKIN DAMAGE NOS 8 01/02/2015 Dermatitis due to cosmetics 04/07/200812/11 ACTINIC DAMAGE///CHR SOLAR SKIN DAMAGE NOS 04/0701/02/2015 Other seborrheic keratosis 04/07/200801/02 SOLAR LENTIGINES///DYSCHROMIA OTHER 04/07/2008 01/02/2015 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 01/02/2015 Special screening for malignant neoplasms, colon 08/11/2005 01/02/2015 Follow-up examination following surgery 10/31/20 03 01/02/2015 USP current use of ant icoagulants with INR goal of 2.0-3.0 09/15/2022 Nocturnal hypoxemia 08/29/2022 Overview: On oxygen at night documented as of this encounter (statuses as of 10/08/2022) [facility]11-09-2022 History of Past illness Narrative* Problem Noted Date Resolved Date CHB (complete heart block) 09/17/202209/18 Overview: 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; Confirmed Blk below His by His Bundle Electrogram Symptomatic bradycardia 09/15/2022 09/18/20 CHF (congestive heart failur e), NYHA class I, acute on chronic, diastolic 07/04/2022 08/26/2022 Xerosis cutis 12/14/2012 01/02/2015 Pruritus 12/14/2012 01/02/2015 Actinic skin damage 12/14/2012 01/02/2015 Solar lentigo 12/14/2012 01/02/2015 Myasthenia gravis 04/19/2012 09/15/2022 Viral warts, unspecified 09/29/2010 015 Irritated//Inflamed Seborrheic Keratosis 010 01/02/2015 Follow-up examination, following unspecified dheeraj diane 06/11/2009 08/14/2009 ACTINIC DAMAGE///SOLAR SKIN DAMAGE NOS 8 01/02/2015 Dermatitis due to cosmetics 04/07/200812/11 ACTINIC DAMAGE///CHR SOLAR SKIN DAMAGE NOS 04/0701/02/2015 Other seborrheic keratosis 04/07/200801/02 SOLAR LENTIGINES///DYSCHROMIA OTHER 04/07/2008 01/02/2015 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 01/02/2015 Special screening for malignant neoplasms, colon 08/11/2005 01/02/2015 Follow-up examination following surgery 10/31/20 03 01/02/2015 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 of ant icoagulants with INR goal of 2.0-3.0 09/15/2022 Nocturnal hypoxemia 08/29/2022 Overview: On oxygen at night documented as of this encounter (statuses as of 10/09/2022) [facility]11-09-2022 History of Past illness Narrative* Problem Noted Date Resolved Date CHB (complete heart block) 09/17/202209/18 Overview: 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; Confirmed Blk below His by His Bundle Electrogram Symptomatic bradycardia 09/15/2022 09/18/20 22 CHF (congestive heart failur e), NYHA class I, acute on chronic, diastolic 07/04/2022 08/26/2022 Xerosis cutis 12/14/2012 01/02/2015 Pruritus 12/14/2012 01/02/2015 Actinic skin damage 12/14/2012 01/02/2015 Solar lentigo 12/14/2012 01/02/2015 Myasthenia gravis 04/19/2012 09/15/2022 Viral warts, unspecified 09/29/2010 015 Irritated//Inflamed Seborrheic Keratosis 010 01/02/2015 Follow-up examination, following unspecified dheeraj diane 06/11/2009 08/14/2009 ACTINIC DAMAGE///SOLAR SKIN DAMAGE NOS 8 01/02/2015 Dermatitis due to cosmetics 04/07/200812/11 ACTINIC DAMAGE///CHR SOLAR SKIN DAMAGE NOS 04/0701/02/2015 Other seborrheic keratosis 04/07/200801/02 SOLAR LENTIGINES///DYSCHROMIA OTHER 04/07/2008 01/02/2015 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 01/02/2015 Special screening for malignant neoplasms, colon 08/11/2005 01/02/2015 Follow-up examination following surgery 10/31/20 03 01/02/2015 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 of ant icoagulants with INR goal of 2.0-3.0 09/15/2022 Nocturnal hypoxemia 08/29/2022 Overview: On oxygen at night documented as of this encounter (statuses as of 10/09/2022) [facility]11-09-2022 History of Past illness Narrative* Problem Noted Date Resolved Date CHB (complete heart block) 09/17/202209/18 Overview: 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; Confirmed Blk below His by His Bundle Electrogram Symptomatic bradycardia 09/15/2022 09/18/20 22 CHF (congestive heart failur e), NYHA class I, acute on chronic, diastolic 07/04/2022 08/26/2022 Xerosis cutis 12/14/2012 01/02/2015 Pruritus 12/14/2012 01/02/2015 Actinic skin damage 12/14/2012 01/02/2015 Solar lentigo 12/14/2012 01/02/2015 Myasthenia gravis 04/19/2012 09/15/2022 Viral warts, unspecified 09/29/2010 015 Irritated//Inflamed Seborrheic Keratosis 010 01/02/2015 Follow-up examination, following unspecified dheeraj diane 06/11/2009 08/14/2009 ACTINIC DAMAGE///SOLAR SKIN DAMAGE NOS 8 01/02/2015 Dermatitis due to cosmetics 04/07/200812/11 ACTINIC DAMAGE///CHR SOLAR SKIN DAMAGE NOS 04/0701/02/2015 Other seborrheic keratosis 04/07/200801/02 SOLAR LENTIGINES///DYSCHROMIA OTHER 04/07/2008 01/02/2015 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 01/02/2015 Special screening for malignant neoplasms, colon 08/11/2005 01/02/2015 Follow-up examination following surgery 10/31/2001/02/2015 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 of ant icoagulants with INR goal of 2.0-3.0 09/15/2022 Nocturnal hypoxemia 08/29/2022 Overview: On oxygen at night documented as of this encounter (statuses as of 10/16/2022) [facility]11-09-2022 History of Past illness Narrative* Problem Noted Date Resolved Date CHB (complete heart block) 09/17/202209/18 Overview: 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; Confirmed Blk below His by His Bundle Electrogram Symptomatic bradycardia 09/15/2022 09/18/20 CHF (congestive heart failur e), NYHA class I, acute on chronic, diastolic 07/04/2022 08/26/2022 Xerosis cutis 12/14/2012 01/02/2015 Pruritus 12/14/2012 01/02/2015 Actinic skin damage 12/14/2012 01/02/2015 Solar lentigo 12/14/2012 01/02/2015 Myasthenia gravis 04/19/2012 09/15/2022 Viral warts, unspecified 09/29/2010 015 Irritated//Inflamed Seborrheic Keratosis 010 01/02/2015 Follow-up examination, following unspecified dheeraj diane 06/11/2009 08/14/2009 ACTINIC DAMAGE///SOLAR SKIN DAMAGE NOS 8 01/02/2015 Dermatitis due to cosmetics 04/07/200812/11 ACTINIC DAMAGE///CHR SOLAR SKIN DAMAGE NOS 04/0701/02/2015 Other seborrheic keratosis 04/07/200801/02 SOLAR LENTIGINES///DYSCHROMIA OTHER 04/07/2008 01/02/2015 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 01/02/2015 Special screening for malignant neoplasms, colon 08/11/2005 01/02/2015 Follow-up examination following surgery 10/31/2001/02/2015 USP current use of ant icoagulants with INR goal of 2.0-3.0 09/15/2022 Nocturnal hypoxemia 08/29/2022 Overview: On oxygen at night documented as of this encounter (statuses as of 10/23/2022) [facility]11-09-2022 History of Past illness Narrative* Problem Noted Date Resolved Date CHB (complete heart block) 09/17/202209/18 Overview: 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; Confirmed Blk below His by His Bundle Electrogram Symptomatic bradycardia 09/15/2022 09/18/20 CHF (congestive heart failur e), NYHA class I, acute on chronic, diastolic 07/04/2022 08/26/2022 Xerosis cutis 12/14/2012 01/02/2015 Pruritus 12/14/2012 01/02/2015 Actinic skin damage 12/14/2012 01/02/2015 Solar lentigo 12/14/2012 01/02/2015 Myasthenia gravis 04/19/2012 09/15/2022 Viral warts, unspecified 09/29/2010 015 Irritated//Inflamed Seborrheic Keratosis 010 01/02/2015 Follow-up examination, following unspecified dheeraj diane 06/11/2009 08/14/2009 ACTINIC DAMAGE///SOLAR SKIN DAMAGE NOS 8 01/02/2015 Dermatitis due to cosmetics 04/07/200812/11 ACTINIC DAMAGE///CHR SOLAR SKIN DAMAGE NOS 04/0701/02/2015 Other seborrheic keratosis 04/07/200801/02 SOLAR LENTIGINES///DYSCHROMIA OTHER 04/07/2008 01/02/2015 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 01/02/2015 Special screening for malignant neoplasms, colon 08/11/2005 01/02/2015 Follow-up examination following surgery 10/31/2001/02/2015 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 of ant icoagulants with INR goal of 2.0-3.0 09/15/2022 Nocturnal hypoxemia 08/29/2022 Overview: On oxygen at night documented as of this encounter (statuses as of 10/25/2022) [facility]11-09-2022 History of Past illness Narrative* Problem Noted Date Resolved Date CHB (complete heart block) 09/17/202209/18 Overview: 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; Confirmed Blk below His by His Bundle Electrogram Symptomatic bradycardia 09/15/2022 09/18/20 CHF (congestive heart failur e), NYHA class I, acute on chronic, diastolic 07/04/2022 08/26/2022 Xerosis cutis 12/14/2012 01/02/2015 Pruritus 12/14/2012 01/02/2015 Actinic skin damage 12/14/2012 01/02/2015 Solar lentigo 12/14/2012 01/02/2015 Myasthenia gravis 04/19/2012 09/15/2022 Viral warts, unspecified 09/29/2010 015 Irritated//Inflamed Seborrheic Keratosis 010 01/02/2015 Follow-up examination, following unspecified dheeraj diane 06/11/2009 08/14/2009 ACTINIC DAMAGE///SOLAR SKIN DAMAGE NOS 8 01/02/2015 Dermatitis due to cosmetics 04/07/200812/11 ACTINIC DAMAGE///CHR SOLAR SKIN DAMAGE NOS 04/0701/02/2015 Other seborrheic keratosis 04/07/200801/02 SOLAR LENTIGINES///DYSCHROMIA OTHER 04/07/2008 01/02/2015 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 01/02/2015 Special screening for malignant neoplasms, colon 08/11/2005 01/02/2015 Follow-up examination following surgery 10/31/2001/02/2015 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 of ant icoagulants with INR goal of 2.0-3.0 09/15/2022 Nocturnal hypoxemia 08/29/2022 Overview: On oxygen at night documented as of this encounter (statuses as of 10/28/2022) [facility]11-09-2022 History of Past illness Narrative* Problem Noted Date Resolved Date CHB (complete heart block) 09/17/202209/18 Overview: 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; Confirmed Blk below His by His Bundle Electrogram Symptomatic bradycardia 09/15/2022 09/18/20 22 CHF (congestive heart failur e), NYHA class I, acute on chronic, diastolic 07/04/2022 08/26/2022 Xerosis cutis 12/14/2012 01/02/2015 Pruritus 12/14/2012 01/02/2015 Actinic skin damage 12/14/2012 01/02/2015 Solar lentigo 12/14/2012 01/02/2015 Myasthenia gravis 04/19/2012 09/15/2022 Viral warts, unspecified 09/29/2010 015 Irritated//Inflamed Seborrheic Keratosis 010 01/02/2015 Follow-up examination, following unspecified dheeraj diane 06/11/2009 08/14/2009 ACTINIC DAMAGE///SOLAR SKIN DAMAGE NOS 8 01/02/2015 Dermatitis due to cosmetics 04/07/200812/11 ACTINIC DAMAGE///CHR SOLAR SKIN DAMAGE NOS 04/0701/02/2015 Other seborrheic keratosis 04/07/200801/02 SOLAR LENTIGINES///DYSCHROMIA OTHER 04/07/2008 01/02/2015 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 01/02/2015 Special screening for malignant neoplasms, colon 08/11/2005 01/02/2015 Follow-up examination following surgery 10/31/2001/02/2015 USP current use of ant icoagulants with INR goal of 2.0-3.0 09/15/2022 Nocturnal hypoxemia 08/29/2022 Overview: On oxygen at night documented as of this encounter (statuses as of 11/11/2022) [facility]11-09-2022 History of Past illness Narrative* Problem Noted Date Resolved Date CHB (complete heart block) 09/17/202209/18 Overview: 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; Confirmed Blk below His by His Bundle Electrogram Symptomatic bradycardia 09/15/2022 09/18/20 CHF (congestive heart failur e), NYHA class I, acute on chronic, diastolic 07/04/2022 08/26/2022 Xerosis cutis 12/14/2012 01/02/2015 Pruritus 12/14/2012 01/02/2015 Actinic skin damage 12/14/2012 01/02/2015 Solar lentigo 12/14/2012 01/02/2015 Myasthenia gravis 04/19/2012 09/15/2022 Viral warts, unspecified 09/29/2010 015 Irritated//Inflamed Seborrheic Keratosis 010 01/02/2015 Follow-up examination, following unspecified dheeraj diane 06/11/2009 08/14/2009 ACTINIC DAMAGE///SOLAR SKIN DAMAGE NOS 8 01/02/2015 Dermatitis due to cosmetics 04/07/200812/11 ACTINIC DAMAGE///CHR SOLAR SKIN DAMAGE NOS 04/0701/02/2015 Other seborrheic keratosis 04/07/200801/02 SOLAR LENTIGINES///DYSCHROMIA OTHER 04/07/2008 01/02/2015 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 01/02/2015 Special screening for malignant neoplasms, colon 08/11/2005 01/02/2015 Follow-up examination following surgery 10/31/20 03 01/02/2015 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 of ant icoagulants with INR goal of 2.0-3.0 09/15/2022 Nocturnal hypoxemia 08/29/2022 Overview: On oxygen at night documented as of this encounter (statuses as of 11/12/2022) [facility]11-09-2022 History of Past illness Narrative* Problem Noted Date Resolved Date CHB (complete heart block) 09/17/202209/18 Overview: 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; Confirmed Blk below His by His Bundle Electrogram Symptomatic bradycardia 09/15/2022 09/18/20 22 CHF (congestive heart failur e), NYHA class I, acute on chronic, diastolic 07/04/2022 08/26/2022 Xerosis cutis 12/14/2012 01/02/2015 Pruritus 12/14/2012 01/02/2015 Actinic skin damage 12/14/2012 01/02/2015 Solar lentigo 12/14/2012 01/02/2015 Myasthenia gravis 04/19/2012 09/15/2022 Viral warts, unspecified 09/29/2010 015 Irritated//Inflamed Seborrheic Keratosis 010 01/02/2015 Follow-up examination, following unspecified dheeraj diane 06/11/2009 08/14/2009 ACTINIC DAMAGE///SOLAR SKIN DAMAGE NOS 8 01/02/2015 Dermatitis due to cosmetics 04/07/200812/11 ACTINIC DAMAGE///CHR SOLAR SKIN DAMAGE NOS 04/0701/02/2015 Other seborrheic keratosis 04/07/200801/02 SOLAR LENTIGINES///DYSCHROMIA OTHER 04/07/2008 01/02/2015 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 01/02/2015 Special screening for malignant neoplasms, colon 08/11/2005 01/02/2015 Follow-up examination following surgery 10/31/2001/02/2015 USP current use of ant icoagulants with INR goal of 2.0-3.0 09/15/2022 Nocturnal hypoxemia 08/29/2022 Overview: On oxygen at night documented as of this encounter (statuses as of 11/20/2022) [facility]11-09-20[facility] History of Past illness Narrative* Problem Noted Date Resolved Date CHB (complete heart block) 09/17/202209/18 Overview: 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; Confirmed Blk below His by His Bundle Electrogram Symptomatic bradycardia 09/15/2022 09/18/20 CHF (congestive heart failur e), NYHA class I, acute on chronic, diastolic 07/04/2022 08/26/2022 Xerosis cutis 12/14/2012 01/02/2015 Pruritus 12/14/2012 01/02/2015 Actinic skin damage 12/14/2012 01/02/2015 Solar lentigo 12/14/2012 01/02/2015 Myasthenia gravis 04/19/2012 09/15/2022 Viral warts, unspecified 09/29/2010 015 Irritated//Inflamed Seborrheic Keratosis 010 01/02/2015 Follow-up examination, following unspecified dheeraj diane 06/11/2009 08/14/2009 ACTINIC DAMAGE///SOLAR SKIN DAMAGE NOS 8 01/02/2015 Dermatitis due to cosmetics 04/07/200812/11 ACTINIC DAMAGE///CHR SOLAR SKIN DAMAGE NOS 04/0701/02/2015 Other seborrheic keratosis 04/07/200801/02 SOLAR LENTIGINES///DYSCHROMIA OTHER 04/07/2008 01/02/2015 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 01/02/2015 Special screening for malignant neoplasms, colon 08/11/2005 01/02/2015 Follow-up examination following surgery 10/31/20 03 01/02/2015 USP current use of ant icoagulants with INR goal of 2.0-3.0 09/15/2022 Nocturnal hypoxemia 08/29/2022 Overview: On oxygen at night documented as of this encounter (statuses as of 11/26/2022) [facility]11-09-[facility] History of Past illness Narrative* Problem Noted Date Resolved Date CHB (complete heart block) 09/17/202209/18 Overview: 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; Confirmed Blk below His by His Bundle Electrogram Symptomatic bradycardia 09/15/2022 09/18/20 CHF (congestive heart failur e), NYHA class I, acute on chronic, diastolic 07/04/2022 08/26/2022 Xerosis cutis 12/14/2012 01/02/2015 Pruritus 12/14/2012 01/02/2015 Actinic skin damage 12/14/2012 01/02/2015 Solar lentigo 12/14/2012 01/02/2015 Myasthenia gravis 04/19/2012 09/15/2022 Viral warts, unspecified 09/29/2010 015 Irritated//Inflamed Seborrheic Keratosis 010 01/02/2015 Follow-up examination, following unspecified dheeraj diane 06/11/2009 08/14/2009 ACTINIC DAMAGE///SOLAR SKIN DAMAGE NOS 8 01/02/2015 Dermatitis due to cosmetics 04/07/200812/11 ACTINIC DAMAGE///CHR SOLAR SKIN DAMAGE NOS 04/0701/02/2015 Other seborrheic keratosis 04/07/200801/02 SOLAR LENTIGINES///DYSCHROMIA OTHER 04/07/2008 01/02/2015 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 01/02/2015 Special screening for malignant neoplasms, colon 08/11/2005 01/02/2015 Follow-up examination following surgery 10/31/20 03 01/02/2015 USP current use of ant icoagulants with INR goal of 2.0-3.0 09/15/2022 Nocturnal hypoxemia 08/29/2022 Overview: On oxygen at night documented as of this encounter (statuses as of 11/26/2022) [facility] History of Past illness Narrative* Problem Noted Date Resolved Date CHB (complete heart block) 09/17/202209/18 Overview: 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; Confirmed Blk below His by His Bundle Electrogram Symptomatic bradycardia 09/15/2022 09/18/20 CHF (congestive heart failur e), NYHA class I, acute on chronic, diastolic 07/04/2022 08/26/2022 Xerosis cutis 12/14/2012 01/02/2015 Pruritus 12/14/2012 01/02/2015 Actinic skin damage 12/14/2012 01/02/2015 Solar lentigo 12/14/2012 01/02/2015 Myasthenia gravis 04/19/2012 09/15/2022 Viral warts, unspecified 09/29/2010 015 Irritated//Inflamed Seborrheic Keratosis 010 01/02/2015 Follow-up examination, following unspecified dheeraj diane 06/11/2009 08/14/2009 ACTINIC DAMAGE///SOLAR SKIN DAMAGE NOS 8 01/02/2015 Dermatitis due to cosmetics 04/07/200812/11 ACTINIC DAMAGE///CHR SOLAR SKIN DAMAGE NOS 04/0701/02/2015 Other seborrheic keratosis 04/07/200801/02 SOLAR LENTIGINES///DYSCHROMIA OTHER 04/07/2008 01/02/2015 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 01/02/2015 Special screening for malignant neoplasms, colon 08/11/2005 01/02/2015 Follow-up examination following surgery 10/31/20 03 01/02/2015 USP current use of ant icoagulants with INR goal of 2.0-3.0 09/15/2022 Nocturnal hypoxemia 08/29/2022 Overview: On oxygen at night documented as of this encounter (statuses as of 12/04/2022) [facility] History of Past illness Narrative* Problem Noted Date Resolved Date CHB (complete heart block) 09/17/202209/18 Overview: 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; Confirmed Blk below His by His Bundle Electrogram Symptomatic bradycardia 09/15/2022 09/18/20 CHF (congestive heart failur e), NYHA class I, acute on chronic, diastolic 07/04/2022 08/26/2022 Xerosis cutis 12/14/2012 01/02/2015 Pruritus 12/14/2012 01/02/2015 Actinic skin damage 12/14/2012 01/02/2015 Solar lentigo 12/14/2012 01/02/2015 Myasthenia gravis 04/19/2012 09/15/2022 Viral warts, unspecified 09/29/2010 015 Irritated//Inflamed Seborrheic Keratosis 010 01/02/2015 Follow-up examination, following unspecified dheeraj diane 06/11/2009 08/14/2009 ACTINIC DAMAGE///SOLAR SKIN DAMAGE NOS 04/07/ 8 01/02/2015 Dermatitis due to cosmetics 04/07/200812/11 ACTINIC DAMAGE///CHR SOLAR SKIN DAMAGE NOS 04/0701/02/2015 Other seborrheic keratosis 04/07/200801/02 SOLAR LENTIGINES///DYSCHROMIA OTHER 04/07/2008 01/02/2015 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 01/02/2015 Special screening for malignant neoplasms, colon 08/11/2005 01/02/2015 Follow-up examination following surgery 10/31/20 03 01/02/2015 USP current use of ant icoagulants with INR goal of 2.0-3.0 09/15/2022 Nocturnal hypoxemia 08/29/2022 Overview: On oxygen at night documented as of this encounter (statuses as of 12/04/2022) [facility] History of Past illness Narrative* Problem Noted Date Resolved Date CHB (complete heart block) 09/17/202209/18 Overview: 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; Confirmed Blk below His by His Bundle Electrogram Symptomatic bradycardia 09/15/2022 09/18/20 CHF (congestive heart failur e), NYHA class I, acute on chronic, diastolic 07/04/2022 08/26/2022 Xerosis cutis 12/14/2012 01/02/2015 Pruritus 12/14/2012 01/02/2015 Actinic skin damage 12/14/2012 01/02/2015 Solar lentigo 12/14/2012 01/02/2015 Myasthenia gravis 04/19/2012 09/15/2022 Viral warts, unspecified 09/29/2010 015 Irritated//Inflamed Seborrheic Keratosis 010 01/02/2015 Follow-up examination, following unspecified dheeraj diane 06/11/2009 08/14/2009 ACTINIC DAMAGE///SOLAR SKIN DAMAGE NOS 8 01/02/2015 Dermatitis due to cosmetics 04/07/200812/11 ACTINIC DAMAGE///CHR SOLAR SKIN DAMAGE NOS 04/0701/02/2015 Other seborrheic keratosis 04/07/200801/02 SOLAR LENTIGINES///DYSCHROMIA OTHER 04/07/2008 01/02/2015 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 01/02/2015 Special screening for malignant neoplasms, colon 08/11/2005 01/02/2015 Follow-up examination following surgery 10/31/20 03 01/02/2015 USP current use of ant icoagulants with INR goal of 2.0-3.0 09/15/2022 Nocturnal hypoxemia 08/29/2022 Overview: On oxygen at night documented as of this encounter (statuses as of 12/06/2022) [facility] History of Past illness Narrative* Problem Noted Date Resolved Date CHB (complete heart block) 09/17/202209/18 Overview: 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; Confirmed Blk below His by His Bundle Electrogram Symptomatic bradycardia 09/15/2022 09/18/20 CHF (congestive heart failur e), NYHA class I, acute on chronic, diastolic 07/04/2022 08/26/2022 Xerosis cutis 12/14/2012 01/02/2015 Pruritus 12/14/2012 01/02/2015 Actinic skin damage 12/14/2012 01/02/2015 Solar lentigo 12/14/2012 01/02/2015 Myasthenia gravis 04/19/2012 09/15/2022 Viral warts, unspecified 09/29/2010 015 Irritated//Inflamed Seborrheic Keratosis 010 01/02/2015 Follow-up examination, following unspecified dheeraj diane 06/11/2009 08/14/2009 ACTINIC DAMAGE///SOLAR SKIN DAMAGE NOS 8 01/02/2015 Dermatitis due to cosmetics 04/07/200812/11 ACTINIC DAMAGE///CHR SOLAR SKIN DAMAGE NOS 04/0701/02/2015 Other seborrheic keratosis 04/07/200801/02 SOLAR LENTIGINES///DYSCHROMIA OTHER 04/07/2008 01/02/2015 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 01/02/2015 Special screening for malignant neoplasms, colon 08/11/2005 01/02/2015 Follow-up examination following surgery 10/31/20 03 01/02/2015 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 of ant icoagulants with INR goal of 2.0-3.0 09/15/2022 Nocturnal hypoxemia 08/29/2022 Overview: On oxygen at night documented as of this encounter (statuses as of 12/12/2022) [facility] History of Past illness Narrative* Problem Noted Date Resolved Date CHB (complete heart block) 09/17/202209/18 Overview: 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; Confirmed Blk below His by His Bundle Electrogram Symptomatic bradycardia 09/15/2022 09/18/20 CHF (congestive heart failur e), NYHA class I, acute on chronic, diastolic 07/04/2022 08/26/2022 Xerosis cutis 12/14/2012 01/02/2015 Pruritus 12/14/2012 01/02/2015 Actinic skin damage 12/14/2012 01/02/2015 Solar lentigo 12/14/2012 01/02/2015 Myasthenia gravis 04/19/2012 09/15/2022 Viral warts, unspecified 09/29/2010 015 Irritated//Inflamed Seborrheic Keratosis 010 01/02/2015 Follow-up examination, following unspecified dheeraj diane 06/11/2009 08/14/2009 ACTINIC DAMAGE///SOLAR SKIN DAMAGE NOS 8 01/02/2015 Dermatitis due to cosmetics 04/07/200812/11 ACTINIC DAMAGE///CHR SOLAR SKIN DAMAGE NOS 04/0701/02/2015 Other seborrheic keratosis 04/07/200801/02 SOLAR LENTIGINES///DYSCHROMIA OTHER 04/07/2008 01/02/2015 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 01/02/2015 Special screening for malignant neoplasms, colon 08/11/2005 01/02/2015 Follow-up examination following surgery 10/31/20 03 01/02/2015 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 of ant icoagulants with INR goal of 2.0-3.0 09/15/2022 Nocturnal hypoxemia 08/29/2022 Overview: On oxygen at night documented as of this encounter (statuses as of 12/15/2022) [facility] History of Past illness Narrative* Problem Noted Date Resolved Date CHB (complete heart block) 09/17/202209/18 Overview: 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; Confirmed Blk below His by His Bundle Electrogram Symptomatic bradycardia 09/15/2022 09/18/20 CHF (congestive heart failur e), NYHA class I, acute on chronic, diastolic 07/04/2022 08/26/2022 Xerosis cutis 12/14/2012 01/02/2015 Pruritus 12/14/2012 01/02/2015 Actinic skin damage 12/14/2012 01/02/2015 Solar lentigo 12/14/2012 01/02/2015 Myasthenia gravis 04/19/2012 09/15/2022 Viral warts, unspecified 09/29/2010 015 Irritated//Inflamed Seborrheic Keratosis 010 01/02/2015 Follow-up examination, following unspecified dheeraj diane 06/11/2009 08/14/2009 ACTINIC DAMAGE///SOLAR SKIN DAMAGE NOS 8 01/02/2015 Dermatitis due to cosmetics 04/07/200812/11 ACTINIC DAMAGE///CHR SOLAR SKIN DAMAGE NOS 04/0701/02/2015 Other seborrheic keratosis 04/07/200801/02 SOLAR LENTIGINES///DYSCHROMIA OTHER 04/07/2008 01/02/2015 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 01/02/2015 Special screening for malignant neoplasms, colon 08/11/2005 01/02/2015 Follow-up examination following surgery 10/31/20 03 01/02/2015 USP current use of ant icoagulants with INR goal of 2.0-3.0 09/15/2022 Nocturnal hypoxemia 08/29/2022 Overview: On oxygen at night documented as of this encounter (statuses as of 2022) [facility] History of Past illness Narrative* Problem Noted Date Resolved Date CHB (complete heart block) 09/17/202209/18 Overview: 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; Confirmed Blk below His by His Bundle Electrogram Symptomatic bradycardia 09/15/2022 09/18/20 CHF (congestive heart failur e), NYHA class I, acute on chronic, diastolic 07/04/2022 08/26/2022 Xerosis cutis 12/14/2012 01/02/2015 Pruritus 12/14/2012 01/02/2015 Actinic skin damage 12/14/2012 01/02/2015 Solar lentigo 12/14/2012 01/02/2015 Myasthenia gravis 04/19/2012 09/15/2022 Viral warts, unspecified 09/29/2010 015 Irritated//Inflamed Seborrheic Keratosis 010 01/02/2015 Follow-up examination, following unspecified dheeraj diane 06/11/2009 08/14/2009 ACTINIC DAMAGE///SOLAR SKIN DAMAGE NOS 8 01/02/2015 Dermatitis due to cosmetics 04/07/200812/11 ACTINIC DAMAGE///CHR SOLAR SKIN DAMAGE NOS 04/0701/02/2015 Other seborrheic keratosis 04/07/200801/02 SOLAR LENTIGINES///DYSCHROMIA OTHER 04/07/2008 01/02/2015 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 01/02/2015 Special screening for malignant neoplasms, colon 08/11/2005 01/02/2015 Follow-up examination following surgery 10/31/20 03 01/02/2015 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 of ant icoagulants with INR goal of 2.0-3.0 09/15/2022 Nocturnal hypoxemia 08/29/2022 Overview: On oxygen at night documented as of this encounter (statuses as of 12/23/2022) [facility] History of Past illness Narrative* Problem Noted Date Resolved Date CHB (complete heart block) 09/17/202209/18 Overview: 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; Confirmed Blk below His by His Bundle Electrogram Symptomatic bradycardia 09/15/2022 09/18/20 CHF (congestive heart failur e), NYHA class I, acute on chronic, diastolic 07/04/2022 08/26/2022 Xerosis cutis 12/14/2012 01/02/2015 Pruritus 12/14/2012 01/02/2015 Actinic skin damage 12/14/2012 01/02/2015 Solar lentigo 12/14/2012 01/02/2015 Myasthenia gravis 04/19/2012 09/15/2022 Viral warts, unspecified 09/29/2010 015 Irritated//Inflamed Seborrheic Keratosis 010 01/02/2015 Follow-up examination, following unspecified dheeraj diane 06/11/2009 08/14/2009 ACTINIC DAMAGE///SOLAR SKIN DAMAGE NOS 8 01/02/2015 Dermatitis due to cosmetics 04/07/200812/11 ACTINIC DAMAGE///CHR SOLAR SKIN DAMAGE NOS 04/0701/02/2015 Other seborrheic keratosis 04/07/200801/02 SOLAR LENTIGINES///DYSCHROMIA OTHER 04/07/2008 01/02/2015 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 01/02/2015 Special screening for malignant neoplasms, colon 08/11/2005 01/02/2015 Follow-up examination following surgery 10/31/2001/02/2015 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 of ant icoagulants with INR goal of 2.0-3.0 09/15/2022 Nocturnal hypoxemia 08/29/2022 Overview: On oxygen at night documented as of this encounter (statuses as of 12/31/2022) [facility]11-09-[facility] Miscellaneous Notes* Telephone Encounter - Rahcelle Vasquez RN - 09/17/2022 12:35 PM EST Pt called in and reports her father was in the hospital and had a pacemaker placed. She reports he will be discharged tomorrow or Thursday. She states he was only out of the hospital for 1 1/2 weeks from a stroke and wanted to make sure the HH orders were set back up. Please call daughter and advise. documented in this encounterMer[facility]11-[facility]22 Miscellaneous Notes* Telephone Encounter - Lena Cruz RN - 09/16/2022 3:[address] Pruitt, please call daughter with update that patient is off one medication that could slow his heart rate (Carvedilol), which he had tolerated well during last admission. Cardiology agreesto watch HR off the beta pritesh. Electrical system of the heart is not working properly. May need pacemaker placed. Daughter notified. She verbalizes understanding. Lena Cruz RN documented in this encounterMer[facility]11-[facility] Instructions* Patient Instructions* Israel Pruitt DO - 09/11/2022 4:44 PM EDT 1. No change in current medication 2. Labs will be drawn next week the week of September 15 prior to the patient's hematology visit within [facility] including CBC and iron levels that will be available to hematology. 3. Patient's last transfusion occurred on September 05 that is of clinical note for oncology 4. We reviewed the patient's history and labs from August 2022 in regards to the patient's recent admission acutely and then on rehab. 5. We will see the patient back with our nurse practitioner staff in 3 months and then myself in the following 3months. 6. Call with any changes or concerns on behalf of the patient and her family's concern of the patient living independent at [facility]. 7. Patient is up-to-date on vaccinations documented in this encounterMer[facility]11[facility] History of Present illness Narrative* Israel Pruitt DO - 09/11/2022 4:20 PM EDT Patient presents with: Transition Of Care: Rehab HPI: Srini Luis is a 86 year old male who presents to the office today for hospital follow up with ustoday at [facility] for left pontine stroke Patient is here for hospital follow-up with the acute hospitalization at [facility] August 22 through August 26. Patient was then transferred to [facility] staying there between August 26 and discharging to home independent on September 05. The patient's diagnosis was a acute right/ left pontine stroke with left arm hand and left lower extremity numbness. Patient's gait was also affected by instability. Patient's assessment in the hospital showed severe narrowing and occlusion of the left intradural vertebral artery right 40% and left50% proximal internal carotid artery stenosis. Patient had again MRI that defined after initial CT showed no acute findings of acute dorsal right greater than left pontine infarct Patient underwent therapy with PT and OT during that 10-day period of time between the and with some improvement in gait stability and strength but overall not a significant improvement. Patient was deemed to be appropriate to get back to his home setting at [place] using a walkerfor ambulation During the hospitalization neurology saw the patient as well as cardiology recommending continuation of Xarelto and aspirin without change as well as lipid-lowering therapy with LDL less than 70 The patient denies any chest pain or palpitations no respiratory complaints. The patients having Miralax q day , with BM q 2 days No urine difficulties Left sided numbness and tingling remains without significant change. Patient feels like he is moving the left hand without much difficulty and having good peoplesoft developer strength Sleep and mood is doing great No falls Sleeping better than ever The patient did receive 1 unit of packed red blood cells prior to discharge on September 05 due to acute on chronic anemia due to presumed myelodysplastic syndrome which she tolerated well REVIEW OF SYSTEMS: CONSTITUTIONAL: No fevers, chills, nightsweats, unintended weight loss HEENT: Denies frequent or severe heaches, nasal congestion/sinus symptoms, problematic allergy problems. EYES: No diplopia or blurry vision. CARDIOVASCULAR: No chest pain, dyspnea, palpitations, orthopnea, PND, ankle edema. PULM: No dyspnea, unexplained cough. GI: No dysphagia/odynophagia, problematic reflux, constipation, diarrhea, changes in stool habits, hematochezia, melena. : No new urinary complaints, including dysuria, gross hematuria or pyuria. NEURO: No new balance problems, peripheral weakness/paresthesias or numbness of concern. MUSC-SKEL: No new joint pain, swelling, or erythema. PSY: No concerns regarding depression, anxiety or panic. INTEGUMENTARY: No new skin changes (rash, new or changing mole, new growth) Patient Care Team: Israel Pruitt DO as PCP - General (Internal Medicine) Laron Arreola (Orthopedics) Israel Minor MD (Cardiology) Eveline Dean RN as Desk Director Randa Rowell DO (Hematology/Oncology) Sanket Rob DO (Neurology) PAST MEDICAL HISTORY Diagnosis Date CAD (coronary artery disease) Diverticulosis History of anemia Hx of CABG 07/22/2021 4 vessel CABG with ORNELAS-LAD, SVG-RI, SVG-OM, and SVG-RCA in [place] Hx of colonoscopy 09/27/2015 no reported polyps per patient recollection Hypertension Hypothyroidism USP current use of anticoagulants with INR goal of 2.0-3.0 Lumbar stenosis MRI 2018 , severe LCS L2-3 Mixed hyperlipidemia Myasthenia gravis (HCC) Last seen by neurology July 29, 2017. 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 2017 when he's been off medication Nocturnal hypoxemia On oxygen at night Osteoarthritis, generalized PAF (paroxysmal atrial fibrillation) (HCC) 2020 Post CABG atrial fibrillation PVC's (premature ventricular contractions) RBBB Status post ligation of left atrial appendage 07/2021 At time of CABG PAST SURGICAL HISTORY Procedure Laterality Date ANKLE RIGHT OP SURGERY Right 12/18/2020 Dr Arreola [facility] ARTHROPLASTY TOTAL SHOULDER 11/09/2008 right ARTHROSCOPY OF JOINT UNLISTED Elbow right CABG (4) VEIN GRAFTS & ARTERIAL GRAFT(S) 07/21/2021 In [facility] COLONOSCOPY FLX DX W/COLLJ SPEC WHEN PFRMD 09/01/2005 Colonoscopy COLONOSCOPY FLX DX W/COLLJ SPEC WHEN PFRMD 09/27/2015 Colonoscopy PAST SURGICAL HISTORY OF 07/21/2021 Coronary Artery Bypass Graft x 4 REMOVAL OF TONSILS,<12 Y/O FAMILY HISTORY Problem Relation Age of Onset Heart Mother Heart Father CHF Colon Cancer No Family History Prostate Cancer No Family History Blood Clots No Family History NO PE OR DVT Social History Tobacco Use Smoking status: Former Types: Cigarettes Quit date: 08/11/1989 Years since quittin.1 Smokeless tobacco: Never Tobacco comments: quit 18-19 years ago Vaping Use Vaping Use: Never used Substance Use Topics Alcohol use: Yes Alcohol/week: 12.5 standard drinks Types: 2 Glasses of Wine (5oz), 2 Cans of Beer (12oz), 1 Mixed Drinks per week Comment: 1-2 beers per week Drug use: No ACTIVE PROBLEM LIST 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 Mixed Hyperlipidemia Hypothyroidism Generalized Osteoarthrosis, Unspecified Site Primary Localized Osteoarthrosis, Shoulder Region Osteoarthrosis, Unspecified Whether Generalized Or Localized, Other Specified Sites Spinal Stenosis of Lumbar Region With Neurogenic Claudication Insomnia Erectile Dysfunction Back Pain Essential Hypertension, Benign Myasthenia Gravis (Hcc) S/P Shoulder Replacement B12 Deficiency Vitamin D Deficiency Macrocytosis Venous Stasis of Both Lower Extremities Cad (Coronary Artery Disease) Diverticulosis History of Anemia Hx of Cabg Hx of Colonoscopy Hypertension Lumbar Stenosis Status Post Ligation of Left Atrial Appendage Osteoarthritis, Generalized Paf (Paroxysmal Atrial Fibrillation) ([facility]) Dental Technician Current Use of Anticoagulants With Inr Goal of 2.0-3.0 Pvc's (Premature Ventricular Contractions) Benign Hypertension Rbbb Acute Stroke Due to Ischemia (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) Malnutrition of Moderate Degree ([facility]) ALLERGIES Allergen Reactions Simvastatin Other: See Comments Elevated CK MEDICATIONS: spironolactone (ALDACTONE) 25 mg tablet Take 1 tablet by mouth once daily. furosemide (LASIX) 20 mg tablet Take 1 tablet by mouth twice daily. atorvastatin (LIPITOR) 40 mg tablet Take 0.5 tablets by mouth once daily. New lower dose as of 2021 levothyroxine (SYNTHROID) 112 mcg tablet Take 1 tablet by mouth once daily. XARELTO 20 mg tablet TAKE 1 TABLET BY MOUTH DAILY WITH DINNER (Patient taking differently: Take 20 mg by mouth daily with dinner.) ferrous sulfate 325 mg (65 mg iron) tablet Take 325 mg by mouth three times daily with meals. metoprolol tartrate, short acting, (LOPRESSOR) 50 mg tablet TAKE 1 TABLET BY MOUTH TWICE DAILY (Patient taking differently: Take 50 mg by mouth twice daily.) polyethylene glycol 3350 (MIRALAX, GLYCOLAX) 17 gram packet Take 17 g by mouth once daily as neededfor constipation. Dissolve dose in 4 - 8 ounces of liquid and take as directed. 1/2 capful every other day aspirin, enteric coated (ASPIRIN, ENTERIC COATED) 81 mg EC tablet Take 81 mg by mouth once daily. cholecalciferol (VITAMIN D3) 1,000 unit tab tablet Take 1,000 Units by mouth once daily. MULTIVITAMIN TABLET Take 1 tablet by mouth once daily. EXAM:BP 102/56 (BP Site: Left Arm, BP Position: Sitting, BP Cuff Size: Regular Adult) Pulse (!) 49 Temp 36.8 C (98.3 F) (Temporal) Ht 171.7 cm (5' 7.6) Wt 78.6 kg (173 lb 3.2 oz) SpO2 97% BMI 26.65 kg/m Last Wt 09/11/22 : 78.6 kg (173 lb 3.2 oz) 09/04/22 : 76.7 kg (169 lb) 08/26/22 : 78.8 kg (173 lb 12.8 oz) 07/24/22 : 80.4 kg (177 lb 3.2 oz) PHYSICAL EXAM: General Appearance: Well appearing, alert, in no acute distress, well-hydrated, well nourished.. Skin: Skin color, texture, turgor normal, no suspicious rashes or lesions. Lymph Nodes: No cervical lymphadenopathy, No supraclavicular lymphadenopathy, No axillary lymphadenopathy. and No inguinal lymphadenopathy. Head: Normocephalic, no masses, lesions, tenderness or abnormalities. Eyes: Anicteric sclera. Pupils are equally round and reactive to light. Extraocular movements are intact. . Nose/Sinuses: Nares normal, septum midline, mucosa normal, no drainage or sinus tenderness. Oropharynx: Lips, mucosa, and tongue normal, teeth and gums normal, oropharynx normal. Neck: Supple, no adenopathy; thyroid symmetric, normal size, no bruits. Lungs: Lungs clear to auscultation. No wheezing, rhonchi, rales. Heart: RRR without murmur, gallop, or rubs. No ectopy. Abdomen: Normal abdominal exam, Abdomen soft, non-tender. Bowel sounds normal. No masses, organomegaly. Extremities: No deformities, edema, skin discoloration, clubbing or cyanosis. Good capillary refill. . Musculoskeletal: No joint swelling, deformity, or tenderness. Back:no pain to palpation of vertebrae, good flexion and extension, good range of motion, no muscletenderness, reflexes are 2+ and symmetric, motor and sensory appear to be normal, negative SLR test, no evidence of scoliosis. Peripheral Pulses: Normal. Neurologic: Gait normal. Reflexes normal and symmetric. Sensation grossly intact.. Rectal: Component Latest Ref Rng & Units 08/22/2022 08/23/2022 08/24/2022 09/05/2022 WBC 3.70 - 11.00 k/uL 7.63 10.82 RBC 4.20 - 6.00 m/uL 2.24 (L) 2.29 (L) Hemoglobin 13.0 - 17.0 g/dL 8.3 (L) 8.5 (L) Hematocrit 39.0 - 51.0 % 24.5 (L) 25.0 (L) MCV 80.0 - 100.0 fL 109.4 (H) 109.2 (H) MCH 26.0 - 34.0 pg 37.1 (H) 37.1 (H) MCHC 30.5 - 36.0 g/dL 33.9 34.0 RDW-CV 11.5 - 15.0 % 17.7 (H) 17.7 (H) Platelet Count 150 - 400 k/uL 259 268 MPV 9.0 - 12.7 fL 11.6 11.2 Neut% % 81.8 Abs Neut (ANC) 1.45 - 7.50 k/uL 8.85 (H) Lymph% % 8.1 Abs Lymph 1.00 - 4.00 k/uL 0.88 (L) Weld% % 7.1 Abs Weld <0.87 k/uL 0.77 Eosin% % 2.3 Abs Eosin <0.46 k/uL 0.25 Baso% % 0.3 Abs Baso <0.11 k/uL 0.03 Immature Gran % % 0.4 IMMATURE GRANS (ABS) <0.10 k/uL 0.04 NRBC /100 WBC 0.2 Absolute nRBC <0.01 k/uL 0.04 (H) 0.02 (H) DTYPE Auto Glucose 70 - 100 mg/dL 91 126 (H) BUN 7 - 26 mg/dL 34 (H) 33 (H) Creatinine 0.50 - 1.40 mg/dL 0.97 0.86 Sodium 136 - 145 mmol/L 141 139 Potassium 3.5 - 5.1 mmol/L 4.0 4.2 Chloride 98 - 107 mmol/L 103 103 CO2 21 - 32 mmol/L 32 30 Anion Gap 5 - 16 mmol/L 6 6 Calcium 8.5 - 10.5 mg/dL 9.2 8.8 eGFR >=60 mL/min/1.73m 76 84 Cholesterol, Total 0 - 199 mg/dL 95 Triglyceride 30 - 149 mg/dL 46 HDL Cholesterol >40 mg/dL 44 Non HDL Cholesterol <130 mg/dL 51 Fasting Time hrs 6 VLDL Cholesterol <30 mg/dL 9 TC:HDL Ratio <5.10 2.16 LDL Cholesterol 0 - 129 mg/dL 42 LDL:HDL Ratio <2.54 0.95 ABO A Rh(D) Positive Antibody Screen Negative Type+Scr Expiration 09/08/2022 23:59 Historical Ab Scr Status NEGATIVE PT Sec 9.7 - 13.0 sec 12.0 PT INR 0.9 - 1.3 1.2 Hemoglobin A1C 4.3 - 6.0 % 6.2 (H) Estimated Average Glucose mg/dL 131 TROPONIN I HIGH SENSITIVITY 0.0 - 54.0 pg/mL 50.4 COVID 19 Result Not Detected SARS-CoV-2 (Agent of COVID-19) Not Detected by RT- PCR or equivalent method. Vitamin B12 193 - 986 pg/mL 413 ASSESSMENT/PLAN: 1. 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HCC) - ICD9: 434.91, ICD10: I63.9 (primary diagnosis) Stable 2. Right pontine stroke (HCC) - ICD9: 434.91, ICD10: I63.50 Stable 3. Numbness and tingling of left arm and leg - ICD9: 782.0, ICD10: R20.0, R20.2 Stable , no significant improvement 4. Paroxysmal atrial fibrillation (HCC) - ICD9: 427.31, ICD10: I48.0 Stable , seems in NSR with PVCs 5. Essential hypertension, benign - ICD9: 401.1, ICD10: I10 - good control - Continue current medication(s) - Recommended regular aerobic exercise. - Recommend home blood pressure monitoring, to bring results in on next visit - Goal of BP <130/80 6. 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 Iron deficiency - ICD9: 280.9, ICD10: E61.1 See orders 8. Restless legs syndrome with nocturnal myoclonus - ICD9: 333.94, 333.2, ICD10: G25.81, G25.3 Stable 9. Hx of four vessel coronary artery bypass graft - ICD9: V15.1, ICD10: Z95.1 Stable , LDL < 70 and BP stable 10. Ankle edema, bilateral - ICD9: 719.07, ICD10: M25.471, M25.472 Stable , +1 at worst 11. Constipation due to slow transit - ICD9: 564.01, ICD10: K59.01 Stable 12. Mixed hyperlipidemia - ICD9: 272.2, ICD10: E78.2 - good control - Continue current medication. - Encouraged following a low fat, low cholesterol diet. - Check fasting lipid panel and ALT in 4 months. 13. Spinal stenosis of lumbar region with neurogenic claudication - ICD9: 724.03, ICD10: M48.062 Stable , no pain , walking with walker 14. Hypothyroidism, unspecified type - ICD9: 244.9, ICD10: E03.9 - Instructed patient on importance of taking on an empty stomach either first thing in the morning or at bedtime. Stable on current rx Stable - Continue current medications 15. Abnormality of gait following cerebrovascular accident - ICD9: 438.89, 781.2, ICD10: I69.398, R26.9 Stable with walker post stroke and post rehab Israel Pruitt I spent a total of 30 minutes on the date of the service which included preparing to see the patient, [id number] patient care, completing clinical documentation, obtaining and/or reviewing separately obtained history, performing a medically appropriate examination, counseling and educating the pat ient/family/caregiver, ordering medications, tests, or procedures, communicating with other HCPs (not separately reported), independently interpreting results (not separately reported), communicatingresults to the patient/family/caregiver, and care coordination (not separately reported). Israel Pruitt DO * Yadira Walsh LPN - 09/11/2022 3:34 PM EDT Pt is here for a TCM ([facility] rehab discharge 09-05-22) Medication list review Yadira Walsh LPN documented in this [facility]Mer[facility] Miscellaneous Notes* Telephone Encounter - Mary Ann Pabon RN - 09/11/2022 12:18 PM EDT Called and left a detailed message that provider will follow OT plan of care. Mary Ann Pabon RN * Telephone Encounter - Guillermina Cummings APRN.OFFICE MACHINES SALES REPRESENTATIVE - 09/11/2022 11:59 AM EDT Ok for plan of care Electronically signed by Guillermina Cummings APRN.OFFICE MACHINES SALES REPRESENTATIVE at 09/11/2022 12:00 PM EDT * Telephone Encounter - Mary Ann Pabon RN - 09/11/2022 10:09 AM EDT Citlalli CHILDERS from [facility] calls with patient's plan of care for Occupational Therapy. Occupational therapy will see patient for 5 visits to improve function of left arm/hand and work with patient on safely completing daily activities. Please review and advise, Mary Ann Pabon RN documented in this encounterMer[facility]11[facility] History of Present illness Narrative* Israel Pruitt DO - 09/09/2022 5:35 PM EDT We will wait till Sep 3 when patient is due to be seen in the office for follow up ie TCM visit BP will be assessed at that time ThanksIsrael DO * Lena Cruz RN - 09/08/2022 8:53 AM EDT TRANSITION CARE MANAGEMENT (TCM) INITIAL CONTACT Provider Action/FYI: 86 year old male admitted to [facility] from 08/26- 09/05/2022 for rehab following acute ischemic stroke. Appointments: PCP / Dr. Pruitt - 09/11/2022 HEME/ONC / Dr. Rowell - 09/18/2022 NEURO / Dr. Rob - 09/23/2022 [facility] 09/08/2022 3:10 p.m. I am doing OK. I am being helped by my daughter. We are getting along fine. Daughter expresses concern about Diastolic BP - while inpatient was in 40s-50s and 60 when checked manually. Since discharge, have used wrist cuff x 3 consecutively and DBP 40s-72. Patient states he does not notice lightheadedness with position change. They will continue to monitor. Appetite and drinking fluids OK. They are currently in the car going grocery shopping. He will call back either later today or tomorrow to review medications and any other concerns. 09/09/2022 2:14 p.m. Patient returned the call. States he feeling okay and has no concerns at this time. He has not rechecked his BP. Medications reviewed. Will follow up at scheduled appointment on 09/11, or sooner PRN. Initial contact with patient post discharge, spoke to patient and daughter . Patient identified by name and . TRANSITION CARE MANAGEMENT: Date of Outreach: 09/08/2022 Date of Discharge 09/05/2022 Some recent data might be hidden SUMMARY: -Pt discharged from [facility] on . -Follow up appointment on 09/11/2022. -Medication review done: Yes -Admitted for: Rehab following acute ischemic stroke CONCERNS: None at this time from patient. NEW MEDICATIONS: None MEDS HELD/DISCONTINUED: None BRIEF HOSPITAL COURSE: Copied / pasted from [facility] notes: Additional Provider to Provider Information: Patient was admitted to inpatient rehabilitation status post stroke. The patient did not require any speech therapy. Patient's deficits were mainly on the left side. Patient's primary deficits were left hand incoordination and weakness. Patient has received multidisciplinary therapy and is improvedupon discharge. Discharge disposition is to home with home health. Patient is improved upon discharge as compared to when he arrived to the unit. He was admitted on August 26 and discharged on September 05. Treatment Team: Attending Provider: MD Lena Davis RN documented in this encounterMercy [facility]10-28-2022 Miscellaneous Notes* Telephone Encounter - Lena Cruz RN - 09/05/2022 9:[address] Pruitt, called patient's daughter, Liza, with update that patient will be discharged to [facility] today, after receiving a unit of blood. 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 Appointment with Dr. Pruitt is already scheduled on 09/11. She expresses her appreciation to PCP for his care and updates to family. Lena Cruz RN documented in this encounterMer[facility]10-26-[facility]22 Miscellaneous Notes* Telephone Encounter - Lena Cruz RN - 09/03/2022 2:34 PM EDT Appointment rescheduled to , 09/11, so family can accompany patient to appointment and so appointment is of appropriate length. Family members will be staying with patient over the weekend in the first couple of days after discharge. Lena Cruz RN * Telephone Encounter - Jayashree Farmer APRN.CNP - 09/03/2022 1:00 PM EDT Advise likely yes, for follow up on hospital/nursing care facility discharge. * Telephone Encounter - Codie Metz - 09/03/2022 12:16 PM EDT Pts daughter calling to see if the appt with Guillermina Cummings on 09/09/22 is necessary. He will be getting d/c from rehab facility on Thursday possibly and she said Dr. Pruitt has been seeing him in the hospital and doing labs. Please let her know. documented in this encounterMer[facility]10-14-2022 History of Present illness Narrative* Vaishali Ng MD, PhD - 08/22/2022 2:41 PM EDT TELESTROKE DOCUMENTATION Name: Srini Luis : 1935 Referring Site: [facility] Referring Provider: Last Known Well (Date/Time): 08/22/2230 Neurologist Evaluation (Date/Time): 08/22/22 1411 Chief Complaint: left side numbness HPI: 86 year old male,had sudden onset of left hand numbness at 9:30AM. He was found to have left side decreased sensation and ataxia. NIHSS 3. Stroke Risk Factors Atrial fibrillation/flutter;Coronary Artery Disease;Hypercholesterolemia;Hypertension Current Anticoagulant Rivaroxaban BP: 150/66 NIHSS Telestroke Type - Patient location (ED or Inpatient): ED - Telephone Site Reported NIHSS: 3 Neurologist Performed Total Score: N/A Labs Glucose: [address] Imaging reviewed, NO acute infarct/hemorrhage seen CTA Reviewed, Other (Specify) CTA Imaging Reviewed (Specify): no LVO that require thrombectomy at this time. 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 Summary Suspected ACUTE ischemic stroke IV Thrombolysis Candidate Window: No - Patient arrived past 4.5 hour window OR Last Known Well Date/Time is unknown (Also, patient is on DOAC, last dose was last night.) Potential Candidate for Endovascular Therapy: Other (Specify) Endovascular Treatment Plan: Neurology reviewed, patient is not a candidate Reason(s) Endovascular Therapy Not Planned: NIHSS too Mild (less than 6);Other (Specify) No LVO that require acute intervention. Disposition/Billing (Physician is not in the same physical location as the patient) The patient will remain at the referring institution for further evaluation and management Telephone Only: Minutes spent reviewing pertinent diagnostic data and discussing patient care with the referring physician: 21 More than 50 percent of the encounter was spent on coordinating care of the patient during a telestroke. Thank you for contacting the [facility]. I appreciate the opportunity for allowing me to participate in Srini Luis's care. Please feel free to contact me and/or the [facility] at any time if you have any further questions or need additional assistance. Vasihali Ng MD, PhD documented in this encounterMercy Health [facility]10-06-2022 Miscellaneous Notes* Telephone Encounter - Israel Pruitt DO - 08/14/2022 2:18 PM EDT The following approved medication requests have been transmitted electronically. Requested Prescriptions Signed Prescriptions Disp Refills spironolactone (ALDACTONE) 25 mg tablet 90 tablet 3 Sig: Take 1 tablet by mouth once daily. Authorizing Provider: ISRAEL PRUITT DO * Telephone Encounter - Micaela SILVEIRA - 08/14/2022 11:16 AM EDT Patient called asking for a refill on the following: Requested Prescriptions Pending Prescriptions Disp Refills spironolactone (ALDACTONE) 25 mg tablet 90 tablet 3 Sig: Take 1 tablet by mouth once daily. Micaela SILVEIRA documented in this encounterMercy Health [facility]09-29-2022 History of Present illness Narrative* Jayashree Farmer APRN.CNP - 08/07/2022 4:27 PM EDT Patient with follow up wppt with Dr. Pruitt 07/24 The following approved medication requests have been transmitted electronically. Requested Prescriptions Signed Prescriptions Disp Refills furosemide (LASIX) 20 mg tablet 180 tablet 3 Sig: Take 1 tablet by mouth twice daily. Jayashree Farmer APRN.CNP * Tere Wang RN - 08/07/2022 2:55 PM EDT TRANSITION CARE MANAGEMENT (TCM) FOLLOW-UP NOTE Provider Action/FYI Summary: TCM F/U Patient was treated at [facility] 07/04-07/09/22 for bilateral leg swelling, CHF 30 Day TCM monitoring competed 08/09/22 Cardiac HF Clinic F/U 08/28/22 PCP F/U 09/09/22 Referred to Primary Care CDM for continued monitoring of Chronic condition CHF Patient willing Updates/Concerns: Patient reports he is doing pretty good Leg swelling has resolved. He reports weight loss. Current weight 167 lbs. Denies sob. Requesting new rx refill for Lasix 20 mg tablet to preferred [facility]. He has a 40 mg tablet currently and does not want to cut it in 1/2. Routing to PCP to review and assist with rx refill. Patient identified by name and date of : YES Spoke to patient Summary: TCM F/U Patient was treated at [facility] 07/04-07/09/22 for bilateral leg swelling, CHF 30 Day TCM monitoring competed 08/09/22 Cardiac HF Clinic F/U 08/28/22 PCP F/U 09/09/22 Referred to Primary Care CDM for continued monitoring of Chronic condition CHF Patient willing Updates/Concerns: Patient reports he is doing pretty good Leg swelling has resolved. He reports weight loss. Current weight 167 lbs. Denies sob. Requesting new rx refill for Lasix 20 mg tablet to preferred [facility]. He has a 40 mg tablet currently and does not want to cut it in 1/2. Routing to PCP to review and assist with rx refill. [employer] Etl Developer plan for next outreach: No further follow up needed at this time Referred to Primary Care CDM for continued monitoring of Chronic condition CHF Encouraged patient to contact office sooner for any new/worsening symptoms/concerns. Signature Tere GERONIMO, RN, [facility] Primary Care Transitional [employer] Etl Developer [facility] [phone] August 07, 2022 documented in this encounterMercy Health [facility]09-27-2022 Miscellaneous Notes* Telephone Encounter - Jayashree Farmer APRN.CNP - 08/05/2022 12:47 PM EDT The following approved medication requests have been transmitted electronically. Requested Prescriptions Signed Prescriptions Disp Refills atorvastatin (LIPITOR) 40 mg tablet 90 tablet 3 Sig: Take 0.5 tablets by mouth once daily. New lower dose as of Jul 24 2022 Authorizing Provider: JAYASHREE FARMER APRN.OFFICE MACHINES SALES REPRESENTATIVE * Telephone Encounter - Lena Cruz RN - 08/05/2022 9:12 AM EDT Patient has been identified by name and date of : Yes Requested Prescriptions Pending Prescriptions Disp Refills atorvastatin (LIPITOR) 40 mg tablet 90 tablet 3 Sig: Take 0.5 tablets by mouth once daily. New lower dose as of Jul 24 2022 07/24/2022 prescription appears not to have transmitted to pharmacy RX INSTRUCTIONS: Pharmacy initiated this request. No need to notify patient. Lena Cruz RN documented in this encounterMercy Health [facility]09-16-2022 History of Present illness Narrative* Tere Wang RN - 07/25/2022 1:44 PM EDT TRANSITION CARE MANAGEMENT (TCM) FOLLOW-UP NOTE Provider FYI Summary: TCM F/U Patient was treated at [facility] 07/04-07/09/22 for bilateral leg swelling, CHF Noted patient had PCP office visit F/U yesterday 07/24/22 Patient outreach deferred to another day Summary: TCM F/U Patient was treated at [facility] 07/04-07/09/22 for bilateral leg swelling, CHF Noted patient had PCP office visit F/U yesterday 07/24/22 Patient outreach deferred to another day [employer] Developer plan for next outreach: Will follow up 1 week Signature Tere Wang MSN, RN, [facility] Primary Care Transitional [employer] Etl Developer [facility] [phone] July 25, 2022 documented in this encounterMercy [facility]09-15-2022 Instructions* Patient Instructions* Israel Pruitt DO - 07/24/2022 11:48 AM EDT 1. Lets have the patient back in the office to see our nurse practitioner staff in 6 weeks with labs to be done prior to that visit 2. We will reach out to the patient with the findings of the BMP that he is pending today letting him know if we need to alter Lasix and Aldactone dosing 3. At this point continue with compression stockings elevation of the legs when able, low-sodium diet of no more than 2 g/day, and continue with Lasix 20 mg twice a day and Aldactone once a day unless labs recommend alteration of dose 4. Flu vaccine today 5. COVID-vaccine booster with the Pfizer BiValent vaccine booster as recommended by CDC(patient received his last booster which was his second booster May 19, 2022 making today 2+ months since his prior booster that the monovalent vaccine ) 6. We will see the patient back sooner if need be for any acute issues 7. Continue with low-sodium diet 2 g/day or 2000 mg total per day 8. 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 documented in this encounterMercy [facility]09-15-2022 History of Present illness Narrative* Israel Pruitt DO - 07/24/2022 11:17 AM EDT Patient presents with: Hospital F/U: [facility] 07-04-22 to 07-09-22-CHF HPI: Srini Luis is a 86 year old male who presents to the office today for routine OV with us today. Patients lost his dear in the last 2 months Patient lives in [place] at [place] in [place] . Has a walker in the car and in the home to use prn The patients not had to use the walker lately with recent intended weight loss The the patient's had a significant improvement in his respiratory status feeling less short of breath. The patient rarely feels short of breath when he lays supine in bed. He does not need to prop himself up on pillows to help with feeling more comfortable Patient denies any chest pain or pressure or left arm or jaw pain The patient denies any feeling like passing out or blacking out Patient denies any nausea vomiting or heartburn symptoms Bladder is comfortable States that when consistent with Miralax , there is clinical benefit with consistent Bms and also adds prunes prn No neuropathy sxs Sleep seems fine , no orthopnea Legs in the past were edematous , and with compression stockings and Lasix and Aldactone REVIEW OF SYSTEMS: CONSTITUTIONAL: No fevers, chills, nightsweats, unintended weight loss HEENT: Denies frequent or severe heaches, nasal congestion/sinus symptoms, problematic allergy problems. EYES: No diplopia or blurry vision. CARDIOVASCULAR: No chest pain, dyspnea, palpitations, orthopnea, PND, ankle edema. PULM: No dyspnea, unexplained cough. GI: No dysphagia/odynophagia, problematic reflux, constipation, diarrhea, changes in stool habits, hematochezia, melena. : No new urinary complaints, including dysuria, gross hematuria or pyuria. NEURO: No new balance problems, peripheral weakness/paresthesias or numbness of concern. MUSC-SKEL: No new joint pain, swelling, or erythema. PSY: No concerns regarding depression, anxiety or panic. 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 2017 when he's been off medication Nocturnal hypoxemia On oxygen at night Osteoarthritis, generalized PAF (paroxysmal atrial fibrillation) (HCC) 2020 Post CABG atrial fibrillation PVC's (premature ventricular contractions) RBBB Status post ligation of left atrial appendage 07/2021 At time of CABG PAST SURGICAL HISTORY Procedure Laterality Date ANKLE RIGHT OP SURGERY Right 12/18/2020 Dr Arreola [facility] ARTHROPLASTY TOTAL SHOULDER 11/09/2008 right ARTHROSCOPY OF JOINT UNLISTED Elbow right CABG (4) VEIN GRAFTS & ARTERIAL GRAFT(S) 07/21/2021 In [facility] COLONOSCOPY FLX DX W/COLLJ SPEC WHEN PFRMD 09/01/2005 Colonoscopy COLONOSCOPY FLX DX W/COLLJ SPEC WHEN PFRMD 09/27/2015 Colonoscopy PAST SURGICAL HISTORY OF 07/21/2021 Coronary Artery Bypass Graft x 4 REMOVAL OF TONSILS,<12 Y/O FAMILY HISTORY Problem Relation Age of Onset Heart Mother Heart Father CHF Colon Cancer No Family History Prostate Cancer No Family History Blood Clots No Family History NO PE OR DVT Social History Tobacco Use Smoking status: Former Types: Cigarettes Quit date: 08/11/1989 Years since quittin.9 Smokeless tobacco: Never Tobacco comments: quit 18-19 years ago Vaping Use Vaping Use: Never used Substance Use Topics Alcohol use: Yes Alcohol/week: 12.5 standard drinks Types: 2 Glasses of Wine (5oz), 2 Cans of Beer (12oz), 1 Mixed Drinks per week Comment: 1-2 beers per week Drug use: No ACTIVE PROBLEM LIST 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 Mixed Hyperlipidemia Hypothyroidism Generalized Osteoarthrosis, Unspecified Site Primary Localized Osteoarthrosis, Shoulder Region Osteoarthrosis, Unspecified Whether Generalized Or Localized, Other Specified Sites Spinal Stenosis of Lumbar Region With Neurogenic Claudication Insomnia Erectile Dysfunction Back Pain Essential Hypertension, Benign Myasthenia Gravis (Hcc) S/P Shoulder Replacement B12 Deficiency Vitamin D Deficiency Macrocytosis Venous Stasis of Both Lower Extremities Cad (Coronary Artery Disease) Diverticulosis History of Anemia Hx of Cabg Hx of Colonoscopy Hypertension Lumbar Stenosis Status Post Ligation of Left Atrial Appendage Osteoarthritis, Generalized Paf (Paroxysmal Atrial Fibrillation) (Hcc) Correction Current Use of Anticoagulants With Inr Goal of 2.0-3.0 Nocturnal Hypoxemia Pvc's (Premature Ventricular Contractions) Benign Hypertension Rbbb Chf (Congestive Heart Failure), Nyha Class I, Acute On Chronic, Diastolic (Hcc) ALLERGIES Allergen Reactions Simvastatin Other: See Comments Elevated CK MEDICATIONS: XARELTO 20 mg tablet TAKE 1 TABLET BY MOUTH DAILY WITH DINNER melatonin 5 mg ODT Take 1 tablet by mouth. furosemide (LASIX) 20 mg tablet Take 1 tablet by mouth twice daily. miconazole (LOTRIMIN AF, DESENEX) 2 % powder Apply 1 application to affected area twice daily. (Patient taking differently: Apply 1 application to affected area as needed.) spironolactone (ALDACTONE) 25 mg tablet Take 1 tablet by mouth once daily. atorvastatin (LIPITOR) 40 mg tablet Take 1 tablet by mouth once daily. ferrous sulfate 325 mg (65 mg iron) tablet Take 1 tablet by mouth three times daily with meals. Newdose as of Mar 18 2022 metoprolol tartrate, short acting, (LOPRESSOR) 50 mg tablet TAKE 1 TABLET BY MOUTH TWICE DAILY levothyroxine (SYNTHROID) 112 mcg tablet TAKE 1 TABLET BY MOUTH ONCE DAILY polyethylene glycol 3350 (MIRALAX, GLYCOLAX) 17 gram packet Take by mouth once daily. Dissolve dosein 4 - 8 ounces of liquid and take as directed. 1/2 capful every other day nitroglycerin sublingual (NITROQUICK) 0.4 mg SL tablet Dissolve 0.4 mg under the tongue every 5 minutes as needed. Per hospital discharge 08/01/2021 cyanocobalamin (VITAMIN B-12) 1,000 mcg tab Take 1 tablet by mouth once daily. As per recommendation of the patients net making supervisor within the [facility] in [facility] aspirin, enteric coated (ASPIRIN, ENTERIC COATED) 81 mg EC tablet Take 81 mg by mouth once daily. cholecalciferol, vitamin D3, 10 mcg (400 unit) cap Take 1,000 Units by mouth once daily. MULTIVITAMIN TABLET Take one(1) tablet daily. EXAM:BP 110/60 (BP Site: Left Arm, BP Position: Sitting, BP Cuff Size: Regular Adult) Pulse 67 Temp 36.4 C (97.5 F) (Temporal) Ht 171.7 cm (5' 7.6) Wt 80.4 kg (177 lb 3.2 oz) SpO2 97% BMI 27.26 kg/m Last Wt 07/24/22 : 80.4 kg (177 lb 3.2 oz) 07/17/22 : 82 kg (180 lb 12.8 oz) 07/08/22 : 90.6 kg (199 lb 11.8 oz) 07/04/22 : 103 kg (227 lb) PHYSICAL EXAM: Weight loss x 3 pounds Patient has dropped a significant amount of weight over the last few weeks, the patient is focusingon weight reduction through less salt intake and continuing on with Diuretic therapy General Appearance: Well appearing, alert, in no acute distress, well-hydrated, well nourished.. Skin: Skin color, texture, turgor normal, no suspicious rashes or lesions. Lymph Nodes: No cervical lymphadenopathy, No supraclavicular lymphadenopathy, No axillary lymphadenopathy. and No inguinal lymphadenopathy. Head: Normocephalic, no masses, lesions, tenderness or abnormalities. Eyes: Anicteric sclera. Pupils are equally round and reactive to light. Extraocular movements are intact. . Nose/Sinuses: Nares normal, septum midline, mucosa normal, no drainage or sinus tenderness. Oropharynx: Lips, mucosa, and tongue normal, teeth and gums normal, oropharynx normal. Neck: Supple, no adenopathy; thyroid symmetric, normal size, no bruits. Lungs: Lungs clear to auscultation. No wheezing, rhonchi, rales. Heart: RIRR without murmur, gallop, or rubs. No ectopy. In rate controlled atrial fib today , no issues with bradycardia or RVR Abdomen: Normal abdominal exam, Abdomen soft, non-tender. Bowel sounds normal. No masses, organomegaly. Extremities: No deformities, edema, skin discoloration, clubbing or cyanosis. Good capillary refill. . Musculoskeletal: No joint swelling, deformity, or tenderness. Back:no pain to palpation of vertebrae, good flexion and extension, good range of motion, no muscletenderness, reflexes are 2+ and symmetric, motor and sensory appear to be normal, negative SLR test, no evidence of scoliosis. Peripheral Pulses: Normal. Neurologic: Gait normal. Reflexes normal and symmetric. Sensation grossly intact.. Rectal:n/a Component Latest Ref Rng & Units 07/04/2022 07/05/2022 07/06/2022 07/07/2022 07/08/2022 07/09/2022 WBC 3.70 - 11.00 k/uL 8.12 8.07 7.47 7.26 RBC 4.20 - 6.00 m/uL 2.38 (L) 2.26 (L) 2.23 (L) 2.43 (L) Hemoglobin 13.0 - 17.0 g/dL 8.8 (L) 8.4 (L) 8.3 (L) 9.1 (L) Hematocrit 39.0 - 51.0 % 26.6 (L) 25.5 (L) 24.8 (L) 26.9 (L) MCV 80.0 - 100.0 fL 111.8 (H) 112.8 (H) 111.2 (H) 110.7 (H) MCH 26.0 - 34.0 pg 37.0 (H) 37.2 (H) 37.2 (H) 37.4 (H) MCHC 30.5 - 36.0 g/dL 33.1 32.9 33.5 33.8 RDW-CV 11.5 - 15.0 % 19.6 (H) 20.3 (H) 20.4 (H) 19.8 (H) Platelet Count 150 - 400 k/uL 239 236 218 236 MPV 9.0 - 12.7 fL 10.8 11.5 11.3 11.3 Neut% % 70.0 70.1 63.4 65.3 Abs Neut (ANC) 1.45 - 7.50 k/uL 5.69 5.66 4.73 4.74 Lymph% % 14.7 13.6 18.1 18.0 Abs Lymph 1.00 - 4.00 k/uL 1.19 1.10 1.35 1.31 Weld% % 12.7 13.9 15.1 13.5 Abs Weld <0.87 k/uL 1.03 (H) 1.12 (H) 1.13 (H) 0.98 (H) Eosin% % 1.1 1.5 2.0 1.8 Abs Eosin <0.46 k/uL 0.09 0.12 0.15 0.13 Baso% % 1.5 0.5 0.9 1.0 Abs Baso <0.11 k/uL 0.12 (H) 0.04 0.07 0.07 Immature Gran % % 0.4 0.5 0.4 IMMATURE GRANS (ABS) <0.10 k/uL 0.03 0.04 0.03 NRBC /100 WBC 0.4 0.4 0.3 Absolute nRBC <0.01 k/uL 0.03 (H) 0.03 (H) 0.02 (H) DTYPE Auto Auto Auto Auto Protein, Total 6.3 - 8.0 g/dL 5.6 (L) Albumin 3.9 - 4.9 g/dL 3.7 (L) 3.7 (L) 4.3 4.0 Calcium 8.5 - 10.2 mg/dL 8.6 8.5 8.9 8.9 9.2 9.1 Bilirubin, Total 0.2 - 1.3 mg/dL 1.4 (H) Alkaline Phosphatase 38 - 113 U/L 83 AST 14 - 40 U/L 24 ALT 10 - 54 U/L 21 Glucose 74 - 99 mg/dL 112 (H) 97 98 110 (H) 103 (H) 96 BUN 9 - 24 mg/dL 26 (H) 25 (H) 28 (H) 28 (H) 26 (H) 26 (H) Creatinine 0.73 - 1.22 mg/dL 1.00 1.06 1.11 1.10 1.09 1.04 Sodium 136 - 144 mmol/L 139 140 140 138 135 (L) 136 Potassium 3.7 - 5.1 mmol/L 4.7 3.9 4.0 4.0 3.9 4.4 Chloride 97 - 105 mmol/L 104 101 99 94 (L) 94 (L) 97 CO2 22 - 30 mmol/L 32 31 (H) 33 (H) 33 (H) 32 (H) 32 (H) Anion Gap 9 - 18 mmol/L 3 (L) 8 (L) 8 (L) 11 9 7 (L) eGFR >=60 mL/min/1.73m 73 68 65 65 66 70 Color yellow Yellow Colorless Clarity Clear Clear Clear Glucose, Urine Negative Negative Negative Bilirubin, Urine Negative Negative Negative Ketones, Urine Negative Negative Negative Specific [place], Ur 1.005 - 1.030 <1.005 (L) 1.008 Hemoglobin/Blood,Ur Negative Negative Negative pH, Urine 5.0 - 8.0 5.5 5.0 Protein, Urine Negative Trace (A) Negative Urobilinogen Negative Negative Normal Nitrites Negative Negative Negative Leukest Negative Negative Negative WBC, Urine 0-5 /HPF 0-5 /HPF 0-5 /HPF RBC, Urine 0-3 /HPF 0-3 /HPF 0-3 /HPF Hyaline Cast 0 /LPF 1-3 /LPF (A) Phosphorus 2.7 - 4.8 mg/dL 4.0 4.0 3.7 Cholesterol, Total <200 mg/dL 75 Triglyceride <150 mg/dL 38 HDL Cholesterol >39 mg/dL 44 Non HDL Cholesterol <130 mg/dL 31 Fasting Time hrs Not indicated VLDL Cholesterol <30 mg/dL 8 TC:HDL Ratio <5.10 1.70 LDL Cholesterol <100 mg/dL 23 LDL:HDL Ratio <2.54 0.52 Retic % 0.4 - 2.0 % 1.8 Abs Retic 0.018 - 0.100 M/uL 0.040 Troponin I <0.040 ng/mL 0.050 (H) NT Pro BNP <450 pg/mL 12,845 (H) COVID 19 Result Not Detected SARS-CoV-2 (Agent of COVID-19) Not Detected by RT- PCR or equivalent method. Magnesium 1.7 - 2.3 mg/dL 1.9 1.9 Folate >4.7 ng/mL >20.0 ASSESSMENT/PLAN: 1. Spinal stenosis of lumbar region with neurogenic claudication - ICD9: 724.03, ICD10: M48.062 (primary diagnosis) Stable , though the patient is having ongoing symptoms and he will have epidural within the next 2 weeks 2. Hypothyroidism, unspecified type - ICD9: 244.9, ICD10: E03.9 - Instructed patient on importance of taking on an empty stomach either first thing in the morning or at bedtime. - continue current dose of Synthroid 0.112 mg - Continue current medications - LEVOTHYROXINE 112 MCG TABLET 3. Paroxysmal atrial fibrillation (HCC) - ICD9: 427.31, ICD10: I48.0 Stable in rate controlled atrial fib 4. Essential hypertension, benign - ICD9: 401.1, ICD10: I10 - good control - Continue current medication(s) - Recommended regular aerobic exercise. - Recommend home blood pressure monitoring, to bring results in on next visit - Goal of BP <130/80 5. Anemia, unspecified type - ICD9: 285.9, ICD10: D64.9 Stable 6. Iron deficiency - ICD9: 280.9, ICD10: E61.1 Stable 7. Primary hypertension - ICD9: 401.9, ICD10: I10 - good control - Continue current medication(s) - Recommended regular aerobic exercise. - Recommend home blood pressure monitoring, to bring results in on next visit - Goal of BP <130/80 8. Restless legs syndrome with nocturnal myoclonus - ICD9: 333.94, 333.2, ICD10: G25.81, G25.3 Stable , no sxs 9. Hx of four vessel coronary artery bypass graft - ICD9: V15.1, ICD10: Z95.1 Stable , no anginal sxs , no FELDMAN 10. Ankle edema, bilateral - ICD9: 719.07, ICD10: M25.471, M25.472 Resolved with low Na diet , and Lasix BID and Aldactone 11. Constipation due to slow transit - ICD9: 564.01, ICD10: K59.01 Stable , BM daily 12. Mixed hyperlipidemia - ICD9: 272.2, ICD10: E78.2 - good control - Continue current medication. 13. Immunization due - ICD9: V05.9, ICD10: Z23 See order for SEJENT Bivalent booster and Flu vaccine today I spent a total of 30 minutes on the date of the service which included preparing to see the patient, [id number] patient care, completing clinical documentation, obtaining and/or reviewing separately obtained history, performing a medically appropriate examination, counseling and educating the pat ient/family/caregiver, ordering medications, tests, or procedures, communicating with other HCPs (not separately reported), independently interpreting results (not separately reported), communicatingresults to the patient/family/caregiver, and care coordination (not separately reported). Israel Pruitt DO * Yadira Walsh LPN - 07/24/2022 10:30 AM EDT Pt is here for a hospital follow up-[facility] 07-04-22 to 07-09-22 for CHF Medication reconciliation completed Yadira Walsh LPN documented in this encounterMercy [facility]09-13-2022 Miscellaneous Notes* Telephone Encounter - Meron Villa RN - 07/22/2022 1:[address] Trevizo reviewed case as recommended by Marcella Trevizo agrees to proceed with Bilateral L4-L5, L5-S1 Lumbar Faced MMB documented in this encounterMercy Health [facility]09-08-2022 [facility]09-08-2022 History of Present illness Narrative* Rosa Gonzalez PA-C - 07/17/2022 11:00 AM EDT HISTORY OF PRESENT ILLNESS 86 year old male who presents with a history of coronary artery disease status post four-vessel CABG, paroxysmal A. fib, hypertension, dyslipidemia, hypothyroidism, grade 3 diastolic dysfunction, 1+ mitral valve regurgitation 1- 2+ tricuspid valve regurgitation and an ejection fraction of 55%. He presents today to establish care in the heart failure clinic. He was discharged on 07/09/2022. During that admission he experienced a 30 pound weight loss. He is currently 180 pounds. Right basilar crackles noted on exam. Lower extremities with compression stockings present. He has received extensive written and verbal education regarding the pathophysiology of diastolic heart failure along with the importance of a 2 g sodium 2 L fluid restricted diet. He is compliant with medication. His family isin attendance and assisting him in monitoring his sodium and fluid intake. He has not taken his afternoon dose of Lasix and will be given to him intravenously in the clinic. He otherwise denies chestpain, palpitations, resting shortness of breath, dyspnea on exertion, near syncope and PND. 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 2017 when he's been off medication Nocturnal hypoxemia On oxygen at night Osteoarthritis, generalized PAF (paroxysmal atrial fibrillation) (HCC) 2020 Post CABG atrial fibrillation PVC's (premature ventricular contractions) RBBB Status post ligation of left atrial appendage 07/2021 At time of CABG PAST SURGICAL HISTORY Procedure Laterality Date ANKLE RIGHT OP SURGERY Right 12/18/2020 Dr Arreola [facility] ARTHROPLASTY TOTAL SHOULDER 11/09/2008 right ARTHROSCOPY OF JOINT UNLISTED [place]bow right CABG (4) VEIN GRAFTS & ARTERIAL GRAFT(S) 07/21/2021 In [facility] COLONOSCOPY FLX DX W/COLLJ SPEC WHEN PFRMD 09/01/2005 Colonoscopy COLONOSCOPY FLX DX W/COLLJ SPEC WHEN PFRMD 09/27/2015 Colonoscopy PAST SURGICAL HISTORY OF 07/21/2021 Coronary Artery Bypass Graft x 4 REMOVAL OF TONSILS,<12 Y/O Social History Tobacco Use Smoking status: Former Types: Cigarettes Quit date: 08/11/1989 Years since quittin.9 Smokeless tobacco: Never Tobacco comments: quit 18-19 years ago Vaping Use Vaping Use: Never used Substance Use Topics Alcohol use: Yes Alcohol/week: 12.5 standard drinks Types: 2 Glasses of Wine (5oz), 2 Cans of Beer (12oz), 1 Mixed Drinks per week Comment: 1-2 beers per week Drug use: No FAMILY HISTORY Problem Relation Age of Onset Heart Mother Heart Father CHF Colon Cancer No Family History Prostate Cancer No Family History Blood Clots No Family History NO PE OR DVT REVIEW OF SYSTEMS CONSTITUTIONAL: No fatigue, malaise, fevers, chills, night sweats, weight loss, or weight gain. CARDIOVASCULAR: No chest pain, orthopnea, edema, palpitations, syncope, claudications, FELDMAN, SOB, orPND. RESPIRATORY: No cough, hemoptysis, or wheezing. No dyspnea at rest. GENITOURINARY: No Dysuria, hesitancy, urgency, hematuria, or incontinence. ENDOCRINE: No cold or heat intolerance, polyurea, polyphagia, or polydipsia. CURRENT MEDICATIONS furosemide (LASIX) 20 mg tablet Take 1 tablet by mouth twice daily. miconazole (LOTRIMIN AF, DESENEX) 2 % powder Apply 1 application to affected area twice daily. potassium chloride ER (K-DUR, KLOR-CON) 20 mEq tablet Take 1 tablet by mouth once daily for 10 days. spironolactone (ALDACTONE) 25 mg tablet Take 1 tablet by mouth once daily. atorvastatin (LIPITOR) 40 mg tablet Take 1 tablet by mouth once daily. ferrous sulfate 325 mg (65 mg iron) tablet Take 1 tablet by mouth three times daily with meals. Newdose as of Mar 18 2022 metoprolol tartrate, short acting, (LOPRESSOR) 50 mg tablet TAKE 1 TABLET BY MOUTH TWICE DAILY rivaroxaban (XARELTO) 20 mg tablet Take 1 tablet by mouth daily with dinner. levothyroxine (SYNTHROID) 112 mcg tablet TAKE 1 TABLET BY MOUTH ONCE DAILY polyethylene glycol 3350 (MIRALAX, GLYCOLAX) 17 gram packet Take by mouth once daily. Dissolve dosein 4 - 8 ounces of liquid and take as directed. 1/2 capful every other day nitroglycerin sublingual (NITROQUICK) 0.4 mg SL tablet Dissolve 0.4 mg under the tongue every 5 minutes as needed. Per hospital discharge 08/01/2021 cyanocobalamin (VITAMIN B-12) 1,000 mcg tab Take 1 tablet by mouth once daily. As per recommendation of the patients net making supervisor within the [facility] in [facility] aspirin, enteric coated (ASPIRIN, ENTERIC COATED) 81 mg EC tablet Take 81 mg by mouth once daily. cholecalciferol, vitamin D3, 10 mcg (400 unit) cap Take 400 Units by mouth once daily. MULTIVITAMIN TABLET Take one(1) tablet daily. ALLERGIES Allergen Reactions Simvastatin Other: See Comments Elevated CK PHYSICAL EXAMINATION 07/17/22 1105 BP: (!) 118/43 BP Site: Right Arm BP Position: Sitting BP Cuff Size: Regular Adult Pulse: 68 Resp: 18 SpO2: 98% Weight: 82 kg (180 lb 12.8 oz) Height: 172.7 cm (5' 8) Rhythm Strip: N/A CONSTITUTIONAL: Well developed, well nourished, no acute distress. HEAD: Normal normocephalic, atraumatic NECK: No bruits, no thyromegaly, no JVD, no HJR SKIN: Good turgor, no lesions, warm CARDIOVASCULAR: Regular rate and rhythm. Normal S1 and S2; no S3 or S4. No murmurs. No pericardial rub. RESPIRATORY: Lungs clear to auscultation bilaterally; no significant wheezing, rhonchi, or rales. ABDOMEN: Soft. Bowel sounds are present in all 4 quadrants. No fluid shift. No organomegaly, non-tender. GENITOURINARY: No costovertebral angle tenderness upon palpation; genital exam deferred. LOWER EXTREMITIES: Compression stockings present. PSYCHIATRIC: Alert and oriented to person, place, and time; lucid. COMPLIANCE Daily Weights: Yes Sodium Restrictions: Yes Exercise: No Medications: Yes Follow-up Appointment: Yes Education Given: Counseled on salt restriction. Counseled on importance of weight loss. Counseled on tobacco cessation. Counseled on alcohol use. Counseled on signs/symptoms of worsening heart failure. Counseled on heart failure medications. LAST LAB DATA CK 155 07/12/2014 Troponin I 0.050 07/04/2022 WBC 7.26 07/09/2022 RBC 2.43 07/09/2022 HGB 9.1 07/09/2022 Hematocrit 26.9 07/09/2022 MCV 110.7 07/09/2022 MCH 37.4 07/09/2022 MCHC 33.8 07/09/2022 RDW-CV 19.8 07/09/2022 Platelet Count 236 07/09/2022 MPV 11.3 07/09/2022 Neut% 65.3 07/09/2022 Lymph% 18.0 07/09/2022 Weld% 13.5 07/09/2022 Eosin% 3.2 09/19/2019 Baso% 1.0 07/09/2022 Abs Neut (ANC) 4.74 07/09/2022 Abs Weld 0.98 07/09/2022 Abs Eosin 0.13 07/09/2022 Abs Baso 0.07 07/09/2022 Glucose 96 07/09/2022 BUN 26 07/09/2022 Creatinine 1.04 07/09/2022 Sodium 136 07/09/2022 Potassium 4.4 07/09/2022 Chloride 97 07/09/2022 CO2 32 07/09/2022 Protein, Total 5.6 07/05/2022 Albumin 4.0 07/08/2022 Calcium 9.1 07/09/2022 Alkaline Phosphatase 83 07/05/2022 Bilirubin, Total 1.4 07/05/2022 AST 24 07/05/2022 ALT 21 07/05/2022 PT Sec 12.5 11/12/2021 PT INR 1.2 11/12/2021 Magnesium 1.9 07/08/2022 TSH 3.500 03/12/2022 Triglyceride 38 07/06/2022 HDL Cholesterol 44 07/06/2022 LDL Chol, Marva 23 07/06/2022 Cholesterol, Total 75 07/06/2022 CARDIAC WORKUP: EKG: Echocardiogram: LV Ejection Fraction (%) Date Value 07/07/2022 55 Impression CONCLUSIONS: - Exam indication: Initial evaluation of Heart Failure - The left ventricle is normal in size. There is mild concentric left ventricular hypertrophy. Left ventricular systolic function is normal. EF = 55 5% (visual est.) Grade III left ventricular diastolic dysfunction. - The right ventricle is mildly dilated. Right ventricular systolic function is mildly decreased. - The left atrial cavity is mildly dilated. - The right atrial cavity is mildly dilated. - The visualized aorta is borderline dilated with a maximal dimension of 3.8 cm. - There is mild (1+ - 2+) tricuspid valve regurgitation. - The patient has not had a prior CC echocardiographic exam for comparison. Stress Testing: Coronary angiography: Cardiac Surgery: Event Monitor: I personally reviewed the patient's labs along with records of their prior cardiac evaluation and their outside hospital records. Assessment & Plan 1.Heart failure with preserved ejection fraction: Grade 3 diastolic dysfunction. Patient and his family have been given extensive written and verbal education regarding the pathophysiology of heart failure and the importance of a 2 g sodium 2 L fluid restricted diet. He is compliant with medication. He continues to have good response to Lasix. Right basilar crackles noted therefore patient will be given 20 mg of IV Lasix in the clinic. Continue metoprolol, spironolactone, and Lasix. 2. Coronary artery disease: No current anginal component. Continue statin 3. Paroxysmal A. fib: Currently in sinus rhythm. Rate controlled. Continue Xarelto for anticoagulation. 4. Hypothyroidism: TSH 3.5. Management per PCP Continue Synthroid as directed In addition, education regarding diagnostic studies, medical therapy, diet, weight management, exercise, and abstinence of tobacco, alcohol, and illicit substances was provided verbally during this visit. When appropriate, copies of this information were provided to the patient, in addition to the pertinent educational booklets available in our clinic. NOTE OF PERSONAL INVOLVEMENT IN CARE I have personally performed a [id number] diagnostic evaluation on this patient, including anamnesis and physical examination, review of pertinent available medical records, and personal visualization and interpretation of pertinent available diagnostic data. I have discussed with the patient Srini Luis (and family and caregivers when present) the natural history of the patient's condition, prognosis, current status, and both basic and advanced therapeutic options, including recommended lifestyle modifications mentioned above. The patient s condition required a significant and separately i dentifiable evaluation and management service, above and beyond the usual pre- and post-procedure/operative care associated with any procedure or service performed. Outpatient Counseling: I have personally spent 60 total minutes involved in the [id number] care of patient Srini Luis. Greater than 50% of the time was spent counseling and/or coordinating care for the patient, the nature of which is noted above. The health conditions of this patient carry a high risk of complications, morbidity, and/or mortality. documented in this encounterMercy Health [facility]09-08-2022 Nurse Note* Christa Paris RN - 07/17/2022 10:56 AM EDT [id number], his daughter and his son-in-law, came to the [facility] for a mew patient visit. Patient came ambulating without assistance. He did have some complaints of fatigue/SOB with ambulation. VScompleted. Educated patient on proper BP monitoring technique (empty bladder, feet flat, back supported and arm at level of heart). Patient is weighing daily. Discussed the purpose of daily weights in the management and early intervention of Heart Failure. Encouraged patient to obtain a scale and continue to monitor daily. Medications reviewed and patient stated that he is compliant with them. He states that he is watching sodium sometimes but does admit to occasional salt shaker use/dining out. [id number]-SujudRosa Gonzalez PA-C in to examine and educate patient. Orders received. Patient to [id number] mg of IV Lasix in the [facility]. No further Lasix today. Verbal and written instructions provided. Patient verbalized understanding. [id number] patient was using canned items and was still using the salt shaker. Extensive education was provided with emphasis on the need to weigh daily, read labels, monitor Na/fluids, monitoringfor signs/symptoms, and when to call the [facility] for early intervention. Discussed importance of balancing sodium throughout the day for a goal of 500-650 mg per meal (5627-5841 mg per day) and to limit fluids to 48-64 ounces per day. Encouraged the patient to call the [facility] with any questions/concerns. Discussed home exercise (walking, bands, arm exercises) and home safety (no area rugs, get up slowly, no rushing to answer phone/door) guidelines. Encouraged him to increase activity as tolerated. Pt ID Confirmed: Yes Medications given: Lasix Hepwell Placed at (time): 1145 After standard prep, peripheral Hepwell started in left hand, x 1 attempt(s) with 22g angiocath. Flushed: 10ccs normal saline Hepwell capped & taped DSD(s) applied. Complications: no Monitored: yes, 40 minutes Urine Output: n/a Hepwell DC'd at (time): 1150 Complications: no documented in this encounterMercy Health [facility] Hospital09-08-2022 Instructions* Patient Instructions* Christa Paris RN - 07/17/2022 10:55 AM EDT Thank you for visiting the Heart Failure Clinic today. YOU RECEIVED 20 MG OF IV FUROSEMIDE (LASIX) IN THE [facility]. NO FURTHER FUROSEMIDE (LASIX) TODAY (07/17/22). ON 07/18/22, RETURN TO FUROSEMIDE (LASIX) 20 MG TWICE A DAY. Please weigh daily and record. Read your food labels and watch for hidden sodium. Keep your sodium intake between 2690-6154 mg daily. 500-650 mg per meal. Continue to eat small, frequent meals. Try to include a form of protein with every meal. Keep your fluid intake at 48-64 ounces /day. Increase your activity as tolerated. Call the [facility] ([phone]) for AN APPOINTMENT (NO WALK-IN VISITS) if you have changes in symptoms or increase in weight of 3 lbs in one day or 5 lbs in a week. Thank you, Christa Paris RNTWICE A DAY documented in this encounterMercy Health [facility] Hospital09-02-2022 Miscellaneous Notes* Telephone Encounter - Roselia Singleton Pss - 07/11/2022 9:21 AM EDT Patient returned call and will keep 07/24 appointment with PCP * Telephone Encounter - Sinai Crenshaw Pss - 07/10/2022 3:16 PM EDT Scheduled appointment. Left detailed message on pt voicemail with date/time and to have him confirmor reschedule appointment as needed. * Telephone Encounter - Israel Pruitt DO - 07/10/2022 1:14 PM EDT Looking over my schedule for the next 2 weeks , the only time I have to see the patient is in the late morning of the , there are openings Does that work for the patient?? Need to see if that is timely enough for follow up , if not we will need to swap with Guillermina please onthe , or the Thanks , Israel Pruitt DO * Telephone Encounter - Lena Cruz RN - 07/10/2022 8:38 AM EDT Daughter, Liza (Physical Therapist), calls stating patient was discharged from [facility] yesterday following treatment for CHF exacerbation. On Tuesdays, granddaughter staying with him On , another daughter staying with him Easiest for TCM appointment to be scheduled on Thursday or She also reports family has been noticing a few memory lapses here and there which they are uncertain if related to depression, grief or possibly something else? She was unaware that C had been ordered for patient. Advised this fiction and nonfiction writer prose or Peg General Nurse will be reaching out to patient today or tomorrow. She verbalizes understanding. Lena Cruz RN documented in this encounterMercy Health [facility] Hospital09-01-2022 Miscellaneous Notes* Telephone Encounter - Yenny Montano - 07/10/2022 1:46 PM EDT The patient was discharged from [facility] 07-09-22 with an order to schedule with the Heart Failure Clinic. The Clinic reached out to the patient. Appointment scheduled 07-17-22. Yenny Montano documented in this encounterMercy Health Perrysburg Hospital09-01-2022 History of Present illness Narrative* Lupis Servin MA - 07/10/2022 12:35 PM EDT POPULATION HEALTH NAVIGATION OUTREACH Action/I July 10, 2022 1st attempt Attempted to reach patient to assist with scheduling his [facility] follow up. Left message on voicemail for him to return call for scheduling assistance. My chart also sent. Patient discharged on 07.09.2022 TCM eligible until 07.23.2022 Pt identified by name and : NO Outreach Outcome/Action Unable to reach patient: Left message MyChart message sent Did you use a PCP flex slot to schedule this appointment? N/A Reason for Outreach [facility] Payer: Payor: [facility] MEDICARE / Plan: [facility] MEDICARE HMO / Product Type: HMO / Care Gap Reviewed:: Follow-up appointment Reminder: Reminder note to check Health Maintenance for items below Health Maintenance items due: COVID-19 VACCINE(4 - Booster for Pfizer series) due on 12/21/2021 INFLUENZA(1) due on 07/10/2022 Message Sent to Practice: No Navigation Signature: Lupis Servin MA July 10, 2022 12:35 PM * Telma Thorpe RN - 07/10/2022 12:07 PM EDT TCM Home Visit Referral Source of Stratification: [facility] Admission Status: Discharged Readmission Risk Score: 22 BECKY Score: 15 Program referral criteria met: Does not meet referral criteria Patient does not qualify for High Risk TCM Home Visit program due to: Does not meet referral criteria Patient does not quality for High Risk TCM Home Visit Program due to: Does not meet referral criteria Preferred contact number: [phone] Is patient staying somewhere other than the listed home address: No Dialysis Patient: No TRANSITIONAL CARE MANAGEMENT (TCM) [facility] PROGRAM Provider Action/FYI: 1st Outreach attempt, spoke to patient and he is doing ok, his legs are still pretty swollen but denies any SOB, pt up and moving around, no questions/concerns at this time Pt NEEDS f/u with PCP, TCM Eligible through 07/23/22 will forward to electrical designer drafter SUMMARY: Pt discharged from [facility] on 07/09/22. Admitted for: CHF Contact made with patient: Yes Hi my name is Telma Thorpe, RN and I am calling from the [facility] on behalf of your PCP, Israel Pruitt, DO I understand you were recently in the hospital so I am calling to check in withyou to ensure you are feeling well now that you're home. May I ask you a few questions related to your hospital stay and well-being? Yes Contact with patient post discharge, spoke to patient. Patient identified by name and . Do you feel your health is BETTER, WORSE, or the SAME since leaving the hospital? Better ACTION TAKEN: Patient indicated symptoms are better or same, no action required. Continue outreach. MEDICATIONS: Many patients have questions or concerns about their medications once they are home. Do you have any questions about taking your medications or which medication you should be on? No Do you need any medication refills at this time, including any of the medications you might take only when needed? No ACTION TAKEN: No action required For RNs or Pharmacy completing outreach ONLY, was a medication review completed? Yes SOCIAL: We would like to make sure you have what you need so that your basics needs are met - including your personal safety, food, housing and medications. Would you like to speak with a social work warehouse team member to help give you support for any of these needs? No It can be normal to feel anxious or down during a time like this. Would you like to talk to a mental health professional about how you have been feeling? No ACTION TAKEN: No action taken DISCHARGE INTRUCTIONS: Your discharge instructions / After Visit Summary (AVS) are important in guiding you through the recovery process. Do you have any questions related to your discharge instructions? No Do you have all the necessary equipment and supplies at home? Yes ACTION TAKEN: No action required I would like to help you schedule a hospital follow-up virtual or telephone visit with your PCP. This is a great way for you to connect with your provider to ensure you have safely transitioned home.If you are agreeable, I will send your request to a electrical designer drafter who will contact and assist you with that appointment. This will give you an opportunity to ask any questions or address any concerns youmay have with your PCP. Inform the patient that if they have any questions or concerns prior to that appointment, to call their PCP's office right away. ACTION TAKEN: Patient desires an appointment - Routed to [facility] [[id number]] for schedulingtelehealth visit (telephonic, virtual visit, or Facetime) within 7 days of discharge with PCP care team. Indicate hospital follow-up appointment needed within 7 days in Provider/FYI box. End Outreach. Your doctor would like us to remind you of the recommendations regarding the coronavirus (Covid19) outbreak: Avoid public places as much as possible. Avoid close contact (within 6 feet) with others you don t live with, especially if they are sick. Stay home if you are sick. Wash your hands regularly for at least 20 seconds with soap and water. Wear a cloth mask in public places to help reduce community spread. Do not go to your Doctor s office unless instructed to do so. For any non- emergency symptoms, call your Doctor s office to get instructions on how to manage (we might recommend a telephone or virtualvisit). For emergency symptoms, proceed to Emergency Department as usual but inform them of cough and fever symptoms JENNY if present (or call on the way if possible). documented in this encounterMercy Health [facility] Hospital08-31-2022 NoteHNO ID: [id number] Author: Rachelle Cuevas, RN Service: Nursing Author Type: Registered Nurse Type: Nursing Progress Note Filed: 07/09/2022 2:27 PM Note Text: Discharge instructions given to pt, family at bedside and will transport home.[facility]08-31-2022 Miscellaneous Notes* Telephone Encounter - Micaela Belkys SILVEIRA - 07/09/2022 4:24 PM EDT Advised Santana of the message below, verbalized understanding. Micaela MENDEZManuel * Telephone Encounter - Guillermina Cummings APRN.CNP - 07/09/2022 4:18 PM EDT Ok for HH orders * Telephone Encounter - Almita Hernandez LPN - 07/09/2022 12:28 PM EDT Santana from [facility] calling to state [facility] today[facility]. Santana requesting VO for home care to include residential, OT & PT. Pt will start this tomorrow if it is ok'd by pcp today. Almita Hernandez LPN documented in this encounterMercy Health Perrysburg Hospital08-31-2022 [facility]08-30-2022 [facility]08-29-2022 [facility]08-28-2022 [facility]08-27-2022 [facility]08-26-2022 History of Past illness Narrative* Problem Noted Date Resolved Date CHF (congestive heart failur e), NYHA class I, acute on chronic, diastolic 07/04/2022 08/26/2022 Xerosis cutis 12/14/2012 01/02/2015 Pruritus 12/14/2012 01/02/2015 Actinic skin damage 12/14/2012 01/02/2015 Solar lentigo 12/14/2012 01/02/2015 Viral warts, unspecified 09/29/2010 015 Irritated//Inflamed Seborrheic Keratosis 010 01/02/2015 Follow-up examination, following unspecified dheeraj diane 06/11/2009 08/14/2009 ACTINIC DAMAGE///SOLAR SKIN DAMAGE NOS 8 01/02/2015 Dermatitis due to cosmetics 04/07/200812/11 ACTINIC DAMAGE///CHR SOLAR SKIN DAMAGE NOS 04/0701/02/2015 Other seborrheic keratosis 04/07/200801/02 SOLAR LENTIGINES///DYSCHROMIA OTHER 04/07/2008 01/02/2015 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 01/02/2015 Special screening for malignant neoplasms, colon 08/11/2005 01/02/2015 Follow-up examination following surgery 10/31/20 03 01/02/2015 Nocturnal hypoxemia 08/29/2022 Overview: On oxygen at night documented as of this encounter (statuses as of 09/03/2022) [facility] History of Past illness Narrative* Problem Noted Date Resolved Date CHF (congestive heart failur e), NYHA class I, acute on chronic, diastolic 07/04/2022 08/26/2022 Xerosis cutis 12/14/2012 01/02/2015 Pruritus 12/14/2012 01/02/2015 Actinic skin damage 12/14/2012 01/02/2015 Solar lentigo 12/14/2012 01/02/2015 Viral warts, unspecified 09/29/2010 015 Irritated//Inflamed Seborrheic Keratosis 010 01/02/2015 Follow-up examination, following unspecified dheeraj diane 06/11/2009 08/14/2009 ACTINIC DAMAGE///SOLAR SKIN DAMAGE NOS 8 01/02/2015 Dermatitis due to cosmetics 04/07/200812/11 ACTINIC DAMAGE///CHR SOLAR SKIN DAMAGE NOS 04/0701/02/2015 Other seborrheic keratosis 04/07/200801/02 SOLAR LENTIGINES///DYSCHROMIA OTHER 04/07/2008 01/02/2015 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 01/02/2015 Special screening for malignant neoplasms, colon 08/11/2005 01/02/2015 Follow-up examination following surgery 10/31/20 03 01/02/2015 Nocturnal hypoxemia 08/29/2022 Overview: On oxygen at night documented as of this encounter (statuses as of 09/05/2022) [facility] History of Past illness Narrative* Problem Noted Date Resolved Date CHF (congestive heart failur e), NYHA class I, acute on chronic, diastolic 07/04/2022 08/26/2022 Xerosis cutis 12/14/2012 01/02/2015 Pruritus 12/14/2012 01/02/2015 Actinic skin damage 12/14/2012 01/02/2015 Solar lentigo 12/14/2012 01/02/2015 Viral warts, unspecified 09/29/2010 015 Irritated//Inflamed Seborrheic Keratosis 010 01/02/2015 Follow-up examination, following unspecified dheeraj diane 06/11/2009 08/14/2009 ACTINIC DAMAGE///SOLAR SKIN DAMAGE NOS 8 01/02/2015 Dermatitis due to cosmetics 04/07/200812/11 ACTINIC DAMAGE///CHR SOLAR SKIN DAMAGE NOS 04/0701/02/2015 Other seborrheic keratosis 04/07/200801/02 SOLAR LENTIGINES///DYSCHROMIA OTHER 04/07/2008 01/02/2015 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 01/02/2015 Special screening for malignant neoplasms, colon 08/11/2005 01/02/2015 Follow-up examination following surgery 10/31/20 03 01/02/2015 Nocturnal hypoxemia 08/29/2022 Overview: On oxygen at night documented as of this encounter (statuses as of 09/09/2022) [facility] History of Past illness Narrative* Problem Noted Date Resolved Date CHF (congestive heart failur e), NYHA class I, acute on chronic, diastolic 07/04/2022 08/26/2022 Xerosis cutis 12/14/2012 01/02/2015 Pruritus 12/14/2012 01/02/2015 Actinic skin damage 12/14/2012 01/02/2015 Solar lentigo 12/14/2012 01/02/2015 Viral warts, unspecified 09/29/2010 015 Irritated//Inflamed Seborrheic Keratosis 010 01/02/2015 Follow-up examination, following unspecified dheeraj diane 06/11/2009 08/14/2009 ACTINIC DAMAGE///SOLAR SKIN DAMAGE NOS 8 01/02/2015 Dermatitis due to cosmetics 04/07/200812/11 ACTINIC DAMAGE///CHR SOLAR SKIN DAMAGE NOS 04/0701/02/2015 Other seborrheic keratosis 04/07/200801/02 SOLAR LENTIGINES///DYSCHROMIA OTHER 04/07/2008 01/02/2015 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 01/02/2015 Special screening for malignant neoplasms, colon 08/11/2005 01/02/2015 Follow-up examination following surgery 10/31/20 03 01/02/2015 Nocturnal hypoxemia 08/29/2022 Overview: On oxygen at night documented as of this encounter (statuses as of 09/10/2022) [facility] History of Past illness Narrative* Problem Noted Date Resolved Date CHF (congestive heart failur e), NYHA class I, acute on chronic, diastolic 07/04/2022 08/26/2022 Xerosis cutis 12/14/2012 01/02/2015 Pruritus 12/14/2012 01/02/2015 Actinic skin damage 12/14/2012 01/02/2015 Solar lentigo 12/14/2012 01/02/2015 Viral warts, unspecified 09/29/2010 015 Irritated//Inflamed Seborrheic Keratosis 010 01/02/2015 Follow-up examination, following unspecified dheeraj diane 06/11/2009 08/14/2009 ACTINIC DAMAGE///SOLAR SKIN DAMAGE NOS 8 01/02/2015 Dermatitis due to cosmetics 04/07/200812/11 ACTINIC DAMAGE///CHR SOLAR SKIN DAMAGE NOS 04/0701/02/2015 Other seborrheic keratosis 04/07/200801/02 SOLAR LENTIGINES///DYSCHROMIA OTHER 04/07/2008 01/02/2015 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 01/02/2015 Special screening for malignant neoplasms, colon 08/11/2005 01/02/2015 Follow-up examination following surgery 10/31/20 03 01/02/2015 Nocturnal hypoxemia 08/29/2022 Overview: On oxygen at night documented as of this encounter (statuses as of 09/11/2022) [facility]08[facility] History of Past illness Narrative* Problem Noted Date Resolved Date CHF (congestive heart failur e), NYHA class I, acute on chronic, diastolic 07/04/2022 08/26/2022 Xerosis cutis 12/14/2012 01/02/2015 Pruritus 12/14/2012 01/02/2015 Actinic skin damage 12/14/2012 01/02/2015 Solar lentigo 12/14/2012 01/02/2015 Viral warts, unspecified 09/29/2010 015 Irritated//Inflamed Seborrheic Keratosis 010 01/02/2015 Follow-up examination, following unspecified dheeraj diane 06/11/2009 08/14/2009 ACTINIC DAMAGE///SOLAR SKIN DAMAGE NOS 8 01/02/2015 Dermatitis due to cosmetics 04/07/200812/11 ACTINIC DAMAGE///CHR SOLAR SKIN DAMAGE NOS 04/0701/02/2015 Other seborrheic keratosis 04/07/200801/02 SOLAR LENTIGINES///DYSCHROMIA OTHER 04/07/2008 01/02/2015 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 01/02/2015 Special screening for malignant neoplasms, colon 08/11/2005 01/02/2015 Follow-up examination following surgery 10/31/20 03 01/02/2015 Nocturnal hypoxemia 08/29/2022 Overview: On oxygen at night documented as of this encounter (statuses as of 09/11/2022) [facility] History of Past illness Narrative* Problem Noted Date Resolved Date CHF (congestive heart failur e), NYHA class I, acute on chronic, diastolic 07/04/2022 08/26/2022 Xerosis cutis 12/14/2012 01/02/2015 Pruritus 12/14/2012 01/02/2015 Actinic skin damage 12/14/2012 01/02/2015 Solar lentigo 12/14/2012 01/02/2015 Myasthenia gravis 04/19/2012 09/15/2022 Viral warts, unspecified 09/29/2010 015 Irritated//Inflamed Seborrheic Keratosis 010 01/02/2015 Follow-up examination, following unspecified dheeraj diane 06/11/2009 08/14/2009 ACTINIC DAMAGE///SOLAR SKIN DAMAGE NOS 8 01/02/2015 Dermatitis due to cosmetics 04/07/200812/11 ACTINIC DAMAGE///CHR SOLAR SKIN DAMAGE NOS 04/0701/02/2015 Other seborrheic keratosis 04/07/200801/02 SOLAR LENTIGINES///DYSCHROMIA OTHER 04/07/2008 01/02/2015 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 01/02/2015 Special screening for malignant neoplasms, colon 08/11/2005 01/02/2015 Follow-up examination following surgery 10/31/2001/02/2015 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 of ant icoagulants with INR goal of 2.0-3.0 09/15/2022 Nocturnal hypoxemia 08/29/2022 Overview: On oxygen at night documented as of this encounter (statuses as of 09/17/2022) [facility]08-26-[facility] Miscellaneous Notes* Telephone Encounter - Yadira Walsh LPN - 07/04/2022 1:27 PM EDT Pt called back and said that the swelling in his groin/scrotum started 2 days ago Per Hermelinda-pt advised to go to ED (pt is going to go [facility]) Yadira Walsh LPN * Telephone Encounter - Yadira Walsh LPN - 07/04/2022 11:29 AM EDT Called and left message for pt to call the office -more information is needed Yadira Walsh LPN * Telephone Encounter - Jayashree Farmer APRN.CNP - 07/04/2022 11:02 AM EDT Please call for more information. Ask if this is recent with the increased edema? Likely needs ER. Jayashree Farmer APRN.CNP [facility] Miscellaneous Notes* Telephone Encounter - Jackelin Lopez Ma - 06/24/2022 1:57 PM EDT Received cardiac clearance letter back from Cardiology, Dr. Nunn. Patient has cardiac clearance and is approved to hold Xarelto for 48 hours and asa 81 for 2 days prior to injection. Dokoge[employer] message sent to notify patient of above. * Telephone Encounter - Jackelin Lopez Ma - 06/23/2022 1:30 PM EDT Letter faxed to Dr. Nunn for cardiac clearance and approval to hold anticoagulation. Will await response. * Telephone Encounter - Jackelin Lopez Ma - 06/23/2022 1:20 PM EDT Patient contacted via telephone to schedule injection. Patient scheduled for: July 29, 2022 Hold the following medication(s): - Aleve - hold for 5 days prior to injection - Fish oil - hold for 5 days prior to procedure - ASA 81 - hold for 2 days prior to procedure - Xarelto - hold for 48 hours prior to procedure Patient has a history of cardiac surgery (CABG). Patient will need a cardiac clearance prior to procedure. Will generate letter and fax to patient's sr. unix system administrator, Dr. Nunn. Patient will also need the ok to hold ASA 81 and Xarelto prior to procedure. Pre-procedure Instructions reviewed over telephone and a list of instructions were sent via Dokoge[employer]. Patient verbalized understanding with no additional questions or concerns at this time. * Telephone Encounter - Jackelin Lopez Ma - 06/13/2022 4:18 PM EDT Received referral from Laron Fortune PA-C to schedule Lumbar MBB; Bilateral; Level: L4-S1 with Dr. Baljinder Trevizo. Will reach out to schedule within 5 business days. Patient added to procedure scheduling list. [facility] History of Present illness Narrative* Iram Johnson APRN.OFFICE MACHINES SALES REPRESENTATIVE - 06/10/2022 11:[address] [facility] CARDIOLOGY Israel Pruitt DO SUBJECTIVE: Srini Luis is a 86 year old male who is here today for a follow-up visit. The patient is doing reasonly well from a cardiovascular standpoint. Unfortunately his this morning. The patientstates that he has had some intermittent chest discomfort on the right side of his chest next to his sternum. He states it is very quick and can happen with or without activity. He does not have assoc iated shortness of breath or diaphoresis. The discomfort is not associated with activity. He has some shortness of breath with exertion but he also tells me his spinal stenosis has worsened to the point that he cannot do as much physical activity. He has not felt his heart skipping or racing. He has not had any syncope or near syncope. He denies orthopnea or PND. He has chronic lower extremity edema. 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 2017 when he's been off medication Nocturnal hypoxemia On oxygen at night Osteoarthritis, generalized PAF (paroxysmal atrial fibrillation) (HCC) 2020 Post CABG atrial fibrillation PVC's (premature ventricular contractions) RBBB Status post ligation of left atrial appendage 07/2021 At time of CABG PAST SURGICAL HISTORY Procedure Laterality Date ANKLE RIGHT OP SURGERY Right 12/18/2020 Dr Arreola [facility] ARTHROPLASTY TOTAL SHOULDER 11/09/2008 right ARTHROSCOPY OF JOINT UNLISTED Elbow right CABG (4) VEIN GRAFTS & ARTERIAL GRAFT(S) 07/21/2021 In [facility] [place] COLONOSCOPY FLX DX W/COLLJ SPEC WHEN PFRMD 09/01/2005 Colonoscopy COLONOSCOPY FLX DX W/COLLJ SPEC WHEN PFRMD 09/27/2015 Colonoscopy PAST SURGICAL HISTORY OF 07/21/2021 Coronary Artery Bypass Graft x 4 REMOVAL OF TONSILS,<12 Y/O FAMILY HISTORY Problem Relation Age of Onset Heart Mother Heart Father CHF Colon Cancer No Family History Prostate Cancer No Family History Blood Clots No Family History NO PE OR DVT SOCIAL HISTORY: Social History Tobacco Use Smoking status: Former Smoker Quit date: 08/11/1989 Years since quittin.8 Smokeless tobacco: Never Used Tobacco comment: quit 18-19 years ago Vaping Use Vaping Use: Never used Substance Use Topics Alcohol use: Yes Alcohol/week: 12.5 standard drinks Types: 2 Glasses of Wine (5oz), 2 Cans of Beer (12oz), 1 Mixed Drinks per week Comment: 1-2 beers per week Drug use: No ALLERGIES: Simvastatin CURRENT MEDICATIONS: Current Outpatient Medications Medication Sig traZODone (DESYREL) 50 mg tablet Take 1 tablet by mouth daily at bedtime. New as of Lou 21 2022 atorvastatin (LIPITOR) 40 mg tablet Take 1 tablet by mouth once daily. ferrous sulfate 325 mg (65 mg iron) tablet Take 1 tablet by mouth three times daily with meals. Newdose as of Mar 18 2022 metoprolol tartrate, short acting, (LOPRESSOR) 50 mg tablet TAKE 1 TABLET BY MOUTH TWICE DAILY rivaroxaban (XARELTO) 20 mg tablet Take 1 tablet by mouth daily with dinner. levothyroxine (SYNTHROID) 112 mcg tablet TAKE 1 TABLET BY MOUTH ONCE DAILY polyethylene glycol 3350 (MIRALAX) 17 gram packet Take by mouth once daily. Dissolve dose in 4 - 8 ounces of liquid and take as directed. 1/2 capful every other day nitroglycerin sublingual (NITROSTAT) 0.4 mg SL tablet Dissolve 0.4 mg under the tongue every 5 minutes as needed. Per hospital discharge 08/01/2021 cyanocobalamin (VITAMIN B-12) 1,000 mcg tab Take 1 tablet by mouth once daily. 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 cholecalciferol, vitamin D3, (VITAMIN D-3) 400 unit cap Take 400 Units by mouth once daily. MULTIVITAMIN TABLET Take one(1) tablet daily. No current facility-administered medications for this visit. Review of Systems Constitutional: Negative for activity change and fever. Respiratory: Positive for shortness of breath. Negative for apnea, cough, chest tightness, wheezingand stridor. Cardiovascular: Positive for leg swelling. Negative for chest pain and palpitations. Gastrointestinal: Negative for abdominal distention, diarrhea and vomiting. Musculoskeletal: Negative for joint swelling, neck pain and neck stiffness. Skin: Negative for color change, pallor and rash. Neurological: Negative for dizziness, syncope, weakness, light-headedness and numbness. Hematological: Does not bruise/bleed easily. Psychiatric/Behavioral: Negative for agitation, behavioral problems and confusion. The patient is not nervous/anxious. All other systems reviewed and are negative. PHYSICAL EXAMINATION: 06/10/22 1123 BP: 128/78 Pulse: 65 Weight: 93.9 kg (207 lb) Height: 172.7 cm (5' 8) Last 3 Encounter BP Readings: Date: BP: 05/29/2022 110/64 05/08/2022 137/53 03/21/2022 131/52 Last 3 Encounter Pulse Readings: Date: Pulse: 05/29/2022 70 05/08/2022 64 03/21/2022 70 Last 3 Encounter Wt Readings: Date: Wt: 05/29/2022 93.9 kg (207 lb) 05/08/2022 90.2 kg (198 lb 12.8 oz) 03/21/2022 91.4 kg (201 lb 9.6 oz) Physical Exam Vitals and nursing note reviewed. Constitutional: General: He is not in acute distress. Appearance: Normal appearance. He is not toxic-appearing. HENT: Head: Normocephalic and atraumatic. Nose: Nose normal. Mouth/Throat: Mouth: Mucous membranes are moist. Neck: Vascular: No carotid bruit. Cardiovascular: Rate and Rhythm: Normal rate and regular rhythm. Pulses: Normal pulses. Heart sounds: Normal heart sounds. No murmur heard. No friction rub. No gallop. Pulmonary: Effort: Pulmonary effort is normal. No respiratory distress. Breath sounds: Normal breath sounds. No stridor. No wheezing, rhonchi or rales. Chest: Chest wall: No tenderness. Abdominal: General: Abdomen is flat. There is no distension. Palpations: Abdomen is soft. There is no mass. Tenderness: There is no abdominal tenderness. Musculoskeletal: General: No swelling. Cervical back: Normal range of motion. No muscular tenderness. Right lower leg: Edema present. Left lower leg: Edema present. Comments: 2+ bilateral lower extremity edema Skin: Capillary Refill: Capillary refill takes less than 2 seconds. Coloration: Skin is not jaundiced or pale. Findings: No bruising or rash. Neurological: General: No focal deficit present. Mental Status: He is alert and oriented to person, place, and time. Mental status is at baseline. Motor: No weakness. Gait: Gait normal. Psychiatric: Mood and Affect: Mood normal. Behavior: Behavior normal. Thought Content: Thought content normal. Judgment: Judgment normal. Diagnostic results: EKG: Sinus rhythm, 65 bpm, first-degree AV block, right bundle branch block ASSESSMENT/PLAN: 1. Benign hypertension - ICD9: 401.1, ICD10: I10 Target BP 130/80 or less. The pt is on chronic medications. Blood pressure controlled on current medications. 2. 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- ICD9: 414.01, ICD10: I25.10 Four-vessel CABG 07/22/2021. The patient is on chronic medications. The patient complains of an atypical chest discomfort on the right side of his chest. The pain is not related to activity. He does not have associated diaphoresis or shortness of breath. He cannot tell me whether or not this is the same type of discomfort he had prior to bypass surgery. We discussed proceeding to stress test. Because of his dying this morning he would like to hold off for now. He will call when he is ready to undergo stress testing. 3. Mixed hyperlipidemia - ICD9: 272.2, ICD10: E78.2 Patient is on Lipitor 40 mg daily. Managed by primary care physician. 4. PAF (paroxysmal atrial fibrillation) (HCC) - ICD9: 427.31, ICD10: I48.0 Patient has a history of post CABG atrial fibrillation. He is maintaining sinus rhythm in the antiarrhythmic drug free state. We will plan to continue same medications and monitor for recurrent atrial fibrillation. 5. USP current use of anticoagulants with INR goal of 2.0-3.0 - ICD9: V58.61, ICD10: Z79.01 Patient is on warfarin for paroxysmal atrial fibrillation. The pt is not complaining of any signs and symptoms of bleeding. The patient was instructed to call with any problems. 6. RBBB - ICD9: 426.4, ICD10: I45.10 Chronic, previously documented. Stable. 7. PVC's (premature ventricular contractions) - ICD9: 427.69, ICD10: I49.3 Patient has known history of PVCs. He is on chronic medication. He is not complaining of palpitations. He was instructed call with change in symptoms. Iram Johnson APRN.MAURICIO documented in this encounterMer[facility] Miscellaneous Notes* Telephone Encounter - Mary Ann Garcia RN - 06/06/2022 3:17 PM EDT Dokogeo message has not yet been read. Call to patient to explain that if injections are desired, patient does need to be seen in the office by Laron Fortune PA-C. Transferred to [facility] to schedule. Mary Ann Garcia RN June 06, 2022 3:18 PM documented in this encounterMercy Health [facility]07-27-[facility]22 Miscellaneous Notes* Telephone Encounter - Israel Pruitt DO - 06/04/2022 5:01 PM EDT Please let the patient know that there was no acute changes in the knee ie no fractures Fluid and soft tissue swelling noted , ie effusion from reactive arthritis as was seen on exam Clearly also as suspected , degenerative joint disease that is associated with severe OA No significant joint space narrowing If there is no good response to the steroid taper , then onto orthopaedics Thanks , Israel Pruitt DO documented in this encounterMercy [facility]07[facility] History of Present illness Narrative* RT Agnes(R) - 06/04/2022 3:45 PM EDTSummary: XRAY Radiology Service Progress Note PATIENT NAME: Srini Luis DATE OF SERVICE: June 04, 2022 TIME: 3:52 PM PATIENT IDENTITY VERIFICATION COMPLETED USING TWO (2) IDENTIFIERS: Name and Date of confirmedby patient verbally. FALL SCREENING: Has the patient had 2 falls in the last year or 1 fall with injury or currently using an Ambulatory Assistive Device (Walker, Cane, Wheelchair, Crutches, etc.)? No PATIENT GENDER DATA: Male PATIENT RELEVANT IMPLANT DATA REVIEWED: Not Applicable RADIOLOGY DEPARTMENT: General X-ray: Exam(s) Completed: Lower Extremity X- Ray(s): Knee, AP / LAT Right PERIPHERAL IV DATA: Not applicable SIGNED BY: RT Agnes(R) June 04, 2022 3:52 PM documented in this encounterMercy Health [facility]07-25-2022 Miscellaneous Notes* Telephone Encounter - Israel Pruitt DO - 06/02/2022 5:19 PM EDT Please reach out to the patient and let him know a few items in regards to his labs as well as his weight is status in the hospital. #1 the patient's hemoglobin has improved from a value that was as low as 8.7 in March up to 9.3. #2 the patient's iron levels are normal. #3 I was just made aware of the patient's being in the hospital from over the weekend coming from [place] after being discharged there on Thursday The hospitalist physicians let me know that Marcie came in for chest pain. Stress test was normal Chest CT was negative for pulmonary emboli The obvious recommendation would be for the patient to discharge back to [place] but we have had difficulties with discharge back to the facility for these reasons #1 the patient's daughter states there may be a request for an alternate facility #2 the patient's daughter wanted the patient to be seen by orthopedics while she was in the hospital for convenience alleviating the opportunity of going to the office as was scheduled this week which is not appropriate to have slowed down the discharge process regarding that request #3 the patient's daughter is interested in the patient's weightbearing and she is not going to be weightbearing until she is cleared by surgery and likely that will not happen until after surgery. I will be seeing the patient in the morning and trying to manage the discharge plan with discharge planners but family needs to be clear about what facility they want limited to go to so that we can start getting her organized for discharge as early as tomorrow Israel Pruitt DO documented in this encounterMercy Health [facility]07-21-2022 Instructions* Patient Instructions* Israel Pruitt DO - 05/29/2022 3:44 PM EDT 1. We will keep the patient's office visit on June 25 for follow-up 2. X-ray of the right knee to evaluate for the presence of osteoarthritis and joint space narrowing 3. I will reach out to the patient with the findings on the x-ray 4. Prednisone taper for the next 9 days to reduce inflammation and pain about the right knee and also specifically Pez anserine bursa 5. Discontinue melatonin 6. Begin trazodone 50 mg at bedtime for the purpose of improving sleep 7. Physical therapy 2-3 times per week for 4 to 6 weeks at [place] to improve gait to reduce the risk of fall to improve mobility and to work with his walker to avoid fall and injury with regard to his right knee pain 8. I would avoid taking Neurontin or gabapentin for fear this would put the patient at higher risk of fall with the potential for dizziness and lightheadedness 9. Please call after prednisone taper is complete to give us an update as to how he is responded #10 I would encourage the patient to reach out to Dr. Fortune to schedule a time for epidural injection for lumbar canal stenosis with neurogenic claudication documented in this encounterMercy Health [facility]07-[facility]22 History of Present illness Narrative* Israel Pruitt DO - 05/29/2022 3:17 PM EDT Patient presents with: Recheck: lab review HPI: Srini Luis is a 86 year old male who presents to the office today for acute concerns : #1 right knee pain following ?? Contusion to the right inner knee region. The patient feels less stable than in the past , recent difficulty with stability . Fall when the symptoms began. The patients trauma was < 2 weeks ago . There was no bruising , no hematoma . Pain on the inner aspect of the knee . Walk with no assistance , has a walker and uses it prn There was a little swelling in the right inner knee No pain in the calf , right leg No x rays The patients not seen orthopaedics for the right knee in the past The right knee was never a problem in the past . Feel unsteady due to the right knee , and low back also causes unstable gait as well #2 back pain , saw Dr Fortune in [place] on May 08 . Recommended Neurontin for pain ( knowing thismay cause unstable gait itself ) . Dx : spinal stenosis neurogenic claudication. The patient was also given an opportunity to consider epidural injections and he has not decided to pursue this at this time yet. Also the patient's asking me what I feel about Neurontin in the face of this situation and whether it is appropriate or safe #3 the patient is having difficulty with sleep The patient's having a difficult time staying asleep not initiating sleep The patient has been taking melatonin for several months at 5 mg at bedtime but without much success. No Benadryl per se , seems the patient took Niquel OTC , seemed to not work as well . ' REVIEW OF SYSTEMS: CONSTITUTIONAL: No fevers, chills, nightsweats, unintended weight loss HEENT: Denies frequent or severe heaches, nasal congestion/sinus symptoms, problematic allergy problems. EYES: No diplopia or blurry vision. CARDIOVASCULAR: No chest pain, dyspnea, palpitations, orthopnea, PND, ankle edema. PULM: No dyspnea, unexplained cough. GI: No dysphagia/odynophagia, problematic reflux, constipation, diarrhea, changes in stool habits, hematochezia, melena. : No new urinary complaints, including dysuria, gross hematuria or pyuria. NEURO: See HPI above for detail MUSC-SKEL: see HPI above for details , attention right knee and LCS with neurogenic claudication pending ?? 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 2017 when he's been off medication Nocturnal hypoxemia On oxygen at night Osteoarthritis, generalized PAF (paroxysmal atrial fibrillation) (HCC) 2020 Post CABG atrial fibrillation PVC's (premature ventricular contractions) RBBB Status post ligation of left atrial appendage 07/2021 At time of CABG PAST SURGICAL HISTORY Procedure Laterality Date ANKLE RIGHT OP SURGERY Right 12/18/2020 Dr Elba Sherman [facility] ARTHROPLASTY TOTAL SHOULDER 11/09/2008 right ARTHROSCOPY OF JOINT UNLISTED Elbow right CABG (4) VEIN GRAFTS & ARTERIAL GRAFT(S) 07/21/2021 In [facility] [place] COLONOSCOPY FLX DX W/COLLJ SPEC WHEN PFRMD 09/01/2005 Colonoscopy COLONOSCOPY FLX DX W/COLLJ SPEC WHEN PFRMD 09/27/2015 Colonoscopy PAST SURGICAL HISTORY OF 07/21/2021 Coronary Artery Bypass Graft x 4 REMOVAL OF TONSILS,<12 Y/O FAMILY HISTORY Problem Relation Age of Onset Heart Mother Heart Father CHF Colon Cancer No Family History Prostate Cancer No Family History Blood Clots No Family History NO PE OR DVT Social History Tobacco Use Smoking status: Former Smoker Quit date: 08/11/1989 Years since quittin.8 Smokeless tobacco: Never Used Tobacco comment: quit 18-19 years ago Vaping Use Vaping Use: Never used Substance Use Topics Alcohol use: Yes Alcohol/week: 12.5 standard drinks Types: 2 Glasses of Wine (5oz), 2 Cans of Beer (12oz), 1 Mixed Drinks per week Comment: 1-2 beers per week Drug use: No ACTIVE PROBLEM LIST 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 Mixed Hyperlipidemia Hypothyroidism Generalized Osteoarthrosis, Unspecified Site Primary Localized Osteoarthrosis, Shoulder Region Osteoarthrosis, Unspecified Whether Generalized Or Localized, Other Specified Sites Spinal Stenosis of Lumbar Region With Neurogenic Claudication Insomnia Erectile Dysfunction Back Pain Essential Hypertension, Benign Myasthenia Gravis (Hcc) S/P Shoulder Replacement B12 Deficiency Vitamin D Deficiency Macrocytosis Venous Stasis of Both Lower Extremities Cad (Coronary Artery Disease) Diverticulosis History of Anemia Hx of Cabg Hx of Colonoscopy Hypertension Lumbar Stenosis Status Post Ligation of Left Atrial Appendage Osteoarthritis, Generalized Paf (Paroxysmal Atrial Fibrillation) (Hcc) Correction Current Use of Anticoagulants With Inr Goal of 2.0-3.0 Nocturnal Hypoxemia Pvc's (Premature Ventricular Contractions) Benign Hypertension Rbbb ALLERGIES Allergen Reactions Simvastatin Other: See Comments Elevated CK MEDICATIONS: atorvastatin (LIPITOR) 40 mg tablet Take 1 tablet by mouth once daily. ferrous sulfate 325 mg (65 mg iron) tablet Take 1 tablet by mouth three times daily with meals. Newdose as of Mar 18 2022 metoprolol tartrate, short acting, (LOPRESSOR) 50 mg tablet TAKE 1 TABLET BY MOUTH TWICE DAILY acetaminophen/diphenhydramine (TYLENOL PM ORAL) Take by mouth as needed. rivaroxaban (XARELTO) 20 mg tablet Take 1 tablet by mouth daily with dinner. levothyroxine (SYNTHROID) 112 mcg tablet TAKE 1 TABLET BY MOUTH ONCE DAILY melatonin 5 mg tablet Take 5 mg by mouth at bedtime as needed. polyethylene glycol 3350 (MIRALAX) 17 gram packet Take by mouth once daily. Dissolve dose in 4 - 8 ounces of liquid and take as directed. 1/2 capful every other day nitroglycerin sublingual (NITROSTAT) 0.4 mg SL tablet Dissolve 0.4 mg under the tongue every 5 minutes as needed. Per hospital discharge 08/01/2021 cyanocobalamin (VITAMIN B-12) 1,000 mcg tab Take 1 tablet by mouth once daily. 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 cholecalciferol, vitamin D3, (VITAMIN D-3) 400 unit cap Take 400 Units by mouth once daily. MULTIVITAMIN TABLET Take one(1) tablet daily. gabapentin (NEURONTIN) 300 mg capsule Take 1 capsule by mouth three times daily for 90 days. EXAM:BP 110/64 (BP Site: Left Arm, BP Position: Sitting, BP Cuff Size: Large Adult) Pulse 70 Temp 36.4 C (97.5 F) (Temporal) Ht 172.7 cm (5' 8) Wt 93.9 kg (207 lb) SpO2 99% BMI 31.47 kg/m Last Wt 05/29/22 : 93.9 kg (207 lb) 05/08/22 : 90.2 kg (198 lb 12.8 oz) 03/21/22 : 91.4 kg (201 lb 9.6 oz) 03/18/22 : 90.3 kg (199 lb) PHYSICAL EXAM: General Appearance: Well appearing, alert, in no acute distress, well-hydrated, well nourished.. Skin: Skin color, texture, turgor normal, no suspicious rashes or lesions. Lymph Nodes: No cervical lymphadenopathy, No supraclavicular lymphadenopathy, No axillary lymphadenopathy. and No inguinal lymphadenopathy. Head: Normocephalic, no masses, lesions, tenderness or abnormalities. Eyes: Anicteric sclera. Pupils are equally round and reactive to light. Extraocular movements are intact. . Nose/Sinuses: Nares normal, septum midline, mucosa normal, no drainage or sinus tenderness. Oropharynx: Lips, mucosa, and tongue normal, teeth and gums normal, oropharynx normal. Neck: Supple, no adenopathy; thyroid symmetric, normal size, no bruits. Lungs: Lungs clear to auscultation. No wheezing, rhonchi, rales. Heart: RIRR without murmur, gallop, or rubs. No ectopy. The patient has chronic atrial fibrillationwith rate control Abdomen: Normal abdominal exam, Abdomen soft, non-tender. Bowel sounds normal. No masses, organomegaly. Extremities: Patient has hypertrophy about the knees bilaterally. There is crepitance on passive range of motiontesting about both knees the same it seems between right and left knee. No pain with forced flexionabout the right knee. There is pain with palpation about the inner aspect of the lower aspect of the left knee. This seems to be right over the Pez anserine bursa which seems to be indicative of localized bursitis. No weakness to motion both actively and passively about the right knee. No pain with motion about the right hip also good range of motion about the right hip and good strength about his hip flexors proximally Excellent dorsal strength in the right foot and ankle. Musculoskeletal: No joint swelling, deformity, or tenderness. Back:no pain to palpation of vertebrae, good flexion and extension, good range of motion, no muscletenderness, reflexes are 2+ and symmetric, motor and sensory appear to be normal, negative SLR test, no evidence of scoliosis. Peripheral Pulses: Normal. Neurologic: Gait normal. Reflexes normal and symmetric. Sensation grossly intact.. Rectal: n/a ASSESSMENT/PLAN: 1. Pes anserine bursitis - ICD9: 726.61, ICD10: M70.50 (primary diagnosis) We will get an x-ray of the right knee and look for the amount of joint space narrowing that we expect will be seen on that film likely medial greater than lateral. Also will begin prednisone taper over the next 9 days to help to reduce inflammation and pain about the Pez anserine bursa. Also will provide the patient with a opportunity for physical therapy 2-3 times a week for the next 4 to 6 weeks to help to improve the patient's stability on his feet and avoid fall and work with the use of a walker. If there are similar symptoms without any significant change we will certainly have the patient seeorthopedics from there 2. Acute pain of right knee - ICD9: 719.46, ICD10: M25.561 Same as above in #1 3. 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 Spinal stenosis of lumbar region with neurogenic claudication - ICD9: 724.03, ICD10: M48.062 The patient in my opinion should avoid Neurontin or gabapentin. He will need to reach out to Dr. Fortune who he saw in my [place] to schedule for epidural injection. Also will begin physical therapy which is helpful not only for the right knee but also the balance and issues related to spinal stenosis 5. Paroxysmal atrial fibrillation (HCC) - ICD9: 427.31, ICD10: I48.0 The patient is in rate controlled A. fib 6. Essential hypertension, benign - ICD9: 401.1, ICD10: I10 - good control - Continue current medication(s) - Recommended regular aerobic exercise. - Recommend home blood pressure monitoring, to bring results in on next visit - Goal of BP <130/80 I spent a total of 30 minutes on the date of the service which included preparing to see the patient, [id number] patient care, completing clinical documentation, obtaining and/or reviewing separately obtained history, performing a medically appropriate examination, counseling and educating the pat ient/family/caregiver, ordering medications, tests, or procedures, communicating with other HCPs (not separately reported), independently interpreting results (not separately reported), communicatingresults to the patient/family/caregiver and care coordination (not separately reported). Israel Pruitt DO * Yadira Walsh LPN - 05/29/2022 2:50 PM EDT Pt is here for a follow up appt with lab review Medication list reviewed Yadira Walsh LPN documented [facility] this encounterMer[facility] Miscellaneous Notes* Telephone Encounter - Israel Pruitt DO - 05/26/2022 1:00 PM EDT Switch this patient into the time slot allotted for his on May [address] Marcie in the time slot in June for her next evaluation Thanks , Israel Pruitt DO * Telephone Encounter - Lena Cruz RN - 05/26/2022 11:41 AM EDT Patient's spouse calls wondering if she can give her 05/29 appointment (20 minute) to patient? States he has been having sleep issues -- not sleeping well, up frequently, has fallen several times. Patient's next regularly scheduled appointment is 06/25/2022. Future lab orders are for CBC + Diff, Iron + TIBC. Please review and advise. Lena Cruz RN documented in this encounterMer[facility]07-08-2022 Miscellaneous Notes* Telephone Encounter - Jayashree Farmer APRN.CNP - 05/16/2022 5:09 PM EDT Notified patient he is up to date on vaccines. Jayashree Farmer APRN.CNP documented in this encounterMercy [facility]06-30-2022 Instructions* Patient Instructions* Laron Fortune PA-C - 05/08/2022 1:34 PM EDT Instructions regarding gabapentin medication: The pill bottle will indicate that you are to take 1 pill 3 times a day, but most individuals will find that it will help to slowly start the medication as follows: For the first few days, start by taking 1 pill an hour or two before bedtime. This may help you to sleep a little bit better and you will be sleeping off some of the side effects. When you get to a point where you can wake up and not feel too many residual side effects, then go ahead and start to take an additional pill. You can split this into a bedtime dose and a daytime dose if you wish or you could consider taking both pills before bedtime. It may take a while longer foryou to get used to 2 pills. Finally, if/when you get to the point that you tolerate both pills well, feel free to add a third dose. Make sure that you are not taking all 3 pills at 1 time. Make sure to separate the third pill from the other 2. Remember that since this medication was originally designed as an anti-seizure medication, the following 4 things are also true: It often takes a while (about 2-3 weeks) for this medication to have its full effect for your nerves. It must be taken regularly in order for it to work well. You must also taper off of it slowly when you decide to discontinue therapy (normally, 1-2 weeks' taper is fine). Side effects will often (not always) fade away as you continue the medication. If you can only manage 1 or 2 pills a day (without having too many side effects), that is also fine--as long as you notice some relief of symptoms. The expected side effects are very similar to what you might expect for either an opioid or a muscle relaxant: Sleepy, groggy, balance problems, feeling a little hazy, disoriented, or confused. documented in this encounterMer[facility]06-30-2022 History of Present illness Narrative* Laron Fortune PA-C - 05/08/2022 1:06 PM EDT Images from the original note were not included. Laron Fortune PA-C [facility] [address] [id number] Dear Israel Pruitt DO, Srini Luis is a pleasant 86 year old individual who comes in to the office on 05/08/2022 for follow-up regarding their Lumbar spine. A friend accompanies the patient today. Subjective: Compared to the last visit, symptoms have been the same. Mr. Ditzler the same has LBP with some thigh pain Severe walking limitation--only about 30 feet he thinks ROS: Since last visit-patient DENIES fevers, chills, night sweats, unexpected weight loss or gain, abdominal pain, progressive weakness, paralysis, loss of bowel/bladder control, saddle numbness, stumbling gait, loss of coordination. Current Outpatient Medications Medication Sig Dispense Refill atorvastatin (LIPITOR) 40 mg tablet Take 1 tablet by mouth once daily. 90 tablet 3 ferrous sulfate 325 mg (65 mg iron) tablet Take 1 tablet by mouth three times daily with meals. Newdose as of Mar 18 2022 metoprolol tartrate, short acting, (LOPRESSOR) 50 mg tablet TAKE 1 TABLET BY MOUTH TWICE DAILY 180 tablet 3 acetaminophen/diphenhydramine (TYLENOL PM ORAL) Take by mouth as needed. rivaroxaban (XARELTO) 20 mg tablet Take 1 tablet by mouth daily with dinner. 90 tablet 3 levothyroxine (SYNTHROID) 112 mcg tablet TAKE 1 TABLET BY MOUTH ONCE DAILY 90 tablet 3 melatonin 5 mg tablet Take 5 mg by mouth at bedtime as needed. polyethylene glycol 3350 (MIRALAX) 17 gram packet Take by mouth once daily. Dissolve dose in 4 - 8 ounces of liquid and take as directed. 1/2 capful every other day nitroglycerin sublingual (NITROSTAT) 0.4 mg SL tablet Dissolve 0.4 mg under the tongue every 5 minutes as needed. Per hospital discharge 08/01/2021 cyanocobalamin (VITAMIN B-12) 1,000 mcg tab Take 1 tablet by mouth once daily. 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 cholecalciferol, vitamin D3, (VITAMIN D-3) 400 unit cap Take 400 Units by mouth once daily. MULTIVITAMIN TABLET Take one(1) tablet daily. 0 No current facility-administered medications for this visit. Exam: Blood pressure 137/53, pulse 64, weight 90.2 kg (198 lb 12.8 oz), SpO2 97 %. Body mass index is 32.09 kg/m . Station and Gait: flexed posture and antalgic gait leaning forward and favoring the right lower extremity Range of Motion: age-appropriate Motor: Diminished RLE dorsiflexor at 3+/5 Sensory: Diminished RLE below the knee Reflexes: Hyporeflexic throughout bilat LE Pain on Palpation: LBP at L-S junctoin Imaging: No new imaging studies were reviewed during this office visit. Assessment/Plan: Encounter Diagnosis ICD-10-CM 1. Spinal stenosis of lumbar region with neurogenic claudication M48.062 MRI LUMBAR SPINE WO IVCON gabapentin (NEURONTIN) 300 mg capsule RTC: on an as-needed basis (PRN) Other/Discussion: He will undergo the MRI scan and I will give him a MyChart note back to let him know what we saw. He is not so sure whether or not he will start his gabapentin but I went ahead and reinforced the teaching information and put a note for him in his home-going instructions and pointed that out to him today. He may be a candidate to consider lumbar epidural steroid. He might be a candidate for consideration of an [place] WILLIE to try to get the widest dispersion of the injectant possible to address generalized stenosis that we already know from his 2019 MRI. Time spent: 35 minutes today with this patient visit. This includes [id number] time, review of chart records regarding conservative care history, spine- pertinent imaging, and communication/care coordination with referring provider, problem-specific history-taking and counseling/education regarding treatment options. This document has been created with the use of voice recognition technology. It may contain inaccuracies: (e.g. misspellings, inaccurate syntax or word sense) that have escaped review. Amanda Soares documented in this encounterMer[facility]06-09-2022 Miscellaneous Notes* Telephone Encounter - Jayashree Farmer APRN.CNP - 04/17/2022 12:13 PM EDT The following approved medication requests have been transmitted electronically. Pending Prescriptions Disp Refills ATORVASTATIN 40 MG TABLET 90 tablet 3 Sig: Take 1 tablet by mouth once daily. MARY: No Jayashree Farmer APRN.CNP * Telephone Encounter - Lena Cruz RN - 04/17/2022 11:44 AM EDT Patient has been identified by name and date of : Yes Pending Prescriptions Disp Refills ATORVASTATIN 40 MG TABLET 90 tablet 3 Sig: Take 1 tablet by mouth once daily. MARY: No Last Distance Health visit 03/18/2022, future appointment 06/25/2022 RX INSTRUCTIONS: Pharmacy initiated this request. No need to notify patient. Lena Cruz RN documented in this encounterMer[facility]06-03-2022 History of Present illness Narrative* Eyal Rodrigues, PT - 04/11/2022 10:16 AM EDT Episode Visit Count: 4 Therapist That Will Oversee The Plan Of Care: Sanket Solo PT Start of Care Date: 03/21/22 Onset Date: 03/21/18 Plan of Care Certification Date: 03/21/22 Next Certification Due Date: 05/20/22 Patient Identified by Name and Date of : Yes REHABILITATION AND SPORTS THERAPY PHYSICAL THERAPY TREATMENT NOTE ASSESSMENT: Srini Luis presents with chief complaint of chronic lumbosacral pain that interfereswith standing;walking . He presents with impairments in balance, gait, joint mobility, overall function, range of motion and strength. Focus today on progressing flexion based there ex and LE strengthening with positive response. Will follow up at next visit about tolerance to increase in there ex this date. patient required frequent rest breaks throughout there ex. Srini Luis tolerated the session with expected muscle soreness and no issues. He demonstrated improvements in tolerance for increased load. The patient will continue to benefit from ongoing skilled physical therapy to progress toward set goals. PLAN FOR NEXT VISIT: continue to progress flexion based ther ex and LE strengthening SUBJECTIVE: Patient Reason for Visit: Patient notes that things are about the same, notes that there are good and bad days. still works on HEP and gets relief with exercises. Pain: Pain Pain Level: 0 Post Treatment Pain Post Treatment Pain Level: No Change OBJECTIVE MEASURES WITH LEVEL OF FUNCTION: TREATMENT: Therapeutic Exercise: 2: *seated HS stretch 2 x30 s bilat 3: seated flexion 5s holds x10 4: sit to stand 3 x10 with 10lb KB 5: seated cable row with lumbar ext 3 x10 (20->30->40lb) 6: seated marches 2 x20 total 7: deadlift off 8in box 10lb KB 3 x10 Skilled Intervention: Patient was educated in proper exercise technique and purpose for exercises. Reviewed and educated patient on additions/changes for home exercise program as above (*). Skilled judgment was provided in selection of appropriate interventions. Billing Therapeutic Exercise Treatment Minutes: 40 Total Treatment Time Minutes (timed/untimed): 40 Eyal Rodrigues PT documented in this encounterMer[facility]05-27-2022 History of Present illness Narrative* Eyal Rodrigues PT - 04/04/2022 2:16 PM EDT Episode Visit Count: 3 Therapist That Will Oversee The Plan Of Care: Sanket Solo PT Start of Care Date: 03/21/22 Onset Date: 03/21/18 Plan of Care Certification Date: 03/21/22 Next Certification Due Date: 05/20/22 Patient Identified by Name and Date of : Yes REHABILITATION AND SPORTS THERAPY PHYSICAL THERAPY TREATMENT NOTE ASSESSMENT: Srini Luis presents with chief complaint of chronic lumbosacral pain that interfereswith standing;walking . He presents with impairments in balance, gait, joint mobility, overall function, range of motion and strength. Focus today on continuing flexion based there ex, lower extremity stretching, and DL loading with positive response. Will follow up at next visit about tolerance toincrease in there ex this date. Srini Luis tolerated the session with expected muscle soreness and no issues. He demonstrated improvements in tolerance for increase in load. The patient will continue to benefit from ongoing skilled physical therapy to progress toward set goals. PLAN FOR NEXT VISIT: continue with flexion based ther ex and stretching SUBJECTIVE: Patient Reason for Visit: Patient notes that after last visit he felt good and had brief periods of relief. Has been compliant with HEP. Pain: Pain Pain Level: 0 OBJECTIVE MEASURES WITH LEVEL OF FUNCTION: TREATMENT: Therapeutic Exercise: 1: *seated figure 4 2 x30s bilat 2: *seated HS stretch 2 x30 s bilat 3: seated flexion 5s holds x10 4: *sit to stand 3 x10 with 5lb KB 5: supine marches 3 x20 total (2 sets with 3lb ankle weights) 6: 8in box alt hand taps 3 x12 total 7: deadlift off 8in box 5lb KB 3 x10 Skilled Intervention: Patient was educated in proper exercise technique and purpose for exercises. Reviewed and educated patient on additions/changes for home exercise program as above (*). Skilled judgment was provided in selection of appropriate interventions. Billing Therapeutic Exercise Treatment Minutes: 40 Total Treatment Time Minutes (timed/untimed): 40 Eyal Rodrigues PT documented in this encounterMercy [facility]05-25-2022 Miscellaneous Notes* Telephone Encounter - Lena Cruz RN - 04/02/2022 5:17 PM EDT Left message for patient to call regarding below. Lena Cruz RN * Telephone Encounter - Israel Pruitt DO - 04/02/2022 4:52 PM EDT Please reach out to the patient and let him know that his hemoglobin has risen from 8.7-8.9 therefore it has not dropped. We have also found some success with improvement in his iron levels continuing to take the iron 3 times per day. The patient continue to take iron tablets if tolerated on his stomach and colon 3 times daily and we will recheck a CBC and iron levels in approximately 6 weeks. Thanks , Israel Pruitt DO documented in this encounterMer[facility] History of Present illness Narrative* Eyal Rodrigues PT - 03/28/2022 10:01 AM EDT Episode Visit Count: 2 Therapist That Will Oversee The Plan Of Care: Sanket Solo PT Start of Care Date: 03/21/22 Onset Date: 03/21/18 Plan of Care Certification Date: 03/21/22 Next Certification Due Date: 05/20/22 REHABILITATION AND SPORTS THERAPY PHYSICAL THERAPY TREATMENT NOTE ASSESSMENT: Srini Luis presents with chief complaint of chronic lumbosacral pain that interfereswith standing;walking . He presents with impairments in balance, gait, joint mobility, overall function, range of motion and strength. Focus today on flexion based there ex, lower extremity stretching, and increasing DL loading with positive response. Patient did require frequent rest breaks throughout session. Will follow up at next visit about tolerance to increase in there ex this date and updates to HEP. Srini Luis tolerated the session with expected muscle soreness and no issues. He demonstrated improvements in tolerance for loading and positive response to previous flexion based activities. The patient will continue to benefit from ongoing skilled physical therapy to progress toward set goals. PLAN FOR NEXT VISIT: continue with flexion based ther ex and stretching SUBJECTIVE: Patient Reason for Visit: Patient notes that he was pretty good. did his exercises on thursday and noted that the next day he was much better the next day. Did not do them yestrday andfeels the impacts today. Notes that the seated flexion is more tolerable than the lying flexion, and gets good relief. Pain: Pain Pain Level: 0 Post Treatment Pain Post Treatment Pain Level: 1 Post Treatment Pain Location: Low Back/Lumbar Spine - Left;Low Back/Lumbar Spine - Right Post Treatment Pain Description: Sore Post Treatment Symptoms: sore from muscles being worked OBJECTIVE MEASURES WITH LEVEL OF FUNCTION: TREATMENT: Therapeutic Exercise: 1: *seated figure 4 2 x30s bilat 2: *seated HS stretch 2 x30 s bilat 3: seated flexion 5s holds x10 4: sit to stand 3 x10 5: supine marches 3 x20 total (2 sets with 3lb ankle weights) 6: 8in box alt hand taps 3 x12 total Skilled Intervention: Patient was educated in proper exercise technique and purpose for exercises. Reviewed and educated patient on additions/changes for home exercise program as above (*). Skilled judgment was provided in selection of appropriate interventions. Provided written instruction for home exercise program to facilitate proper performance and compliance. Billing Therapeutic Exercise Treatment Minutes: 40 Total Treatment Time Minutes (timed/untimed): 40 Eyal Rodrigues PT documented in this encounterMer[facility]05-16-2022 Miscellaneous Notes* Telephone Encounter - Micaela SILVEIRA - 03/24/2022 3:14 PM EDT Patient informed of the message below, verbalized understanding. Micaela SILVEIRA * Telephone Encounter - Guillermina Cummings APRN.CNP - 03/24/2022 12:22 PM EDT Please let Narinder know that his iron levels, and B12 are in a good range. Seems he just increased the iron to 3 x per day Let's have the Blood count, and iron levels recheck again in 1 month He can get that here documented in this encounterMer[facility]05-13-2022 History of Present illness Narrative* Guillermina Cummings APRN.CNP - 03/21/2022 1:39 PM EDT Chief Reason For Appointment Patient presents with: Jackie Luis is a 86 year old male who presents for a follow up visit Last office visit date: 02/26/2022 Accompanied By self only Have you had any critical events, hospital stays, ER visits, surgeries or procedures since your last visit here in our office: No Specialists/Other Healthcare Providers Seen: Patient Care Team: Israel Pruitt DO as PCP - General (Internal Medicine) Laron Arreola (Orthopedics) Israel Minor MD (Cardiology) Concerns/history: He presents for short term visit to check BP, lower leg edema, and to have labs. Please refer to previous visit with pcp. He continues to be tired, and have chronic swelling in the RLE, s/p bypass grafts. He tells me he just ordered some support stockings. Started PT today for his back, and balance. Labs drawn at visit today as per pcp instructions. Ifobt given to check stool at home for blood. Active Problems ACTIVE PROBLEM LIST Rbbb Benign Hypertension - 08/14/2021 Cad (Coronary Artery Disease) Diverticulosis History of Anemia Hypertension Lumbar Stenosis Comment: MRI 2019 , severe LCS L2-3 Osteoarthritis, Generalized Correction Current Use of Anticoagulants With Inr Goal of 2.0-3.0 Nocturnal Hypoxemia Comment: On oxygen at night Pvc's (Premature Ventricular Contractions) Hx of Cabg - 07/10/2021 Comment: 4 vessel CABG Status Post Ligation of Left Atrial Appendage - 07/10/2021 Comment: At time of CABG Paf (Paroxysmal Atrial Fibrillation) ([facility], [facility]) - 11/09/2020 Comment: Post CABG atrial fibrillation B12 Deficiency - 07/11/2020 Vitamin D Deficiency - 07/11/2020 Macrocytosis - 07/11/2020 Venous Stasis of Both Lower Extremities - 07/11/2020 Hx of Colonoscopy - 09/27/2015 Comment: no reported polyps per patient recollection S/P Shoulder Replacement - 02/08/2015 Myasthenia Gravis ([facility], 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 shoulder Generalized Osteoarthrosis, Unspecified Site - 06/05/2006 Comment: RALF. SHOUDERS Mixed Hyperlipidemia - 07/04/2005 Hypothyroidism - 07/04/2005 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 - 09/21/2003 ROS: ROS: No TIA's or unusual headaches, no dysphagia. No prolonged cough. No dyspnea or chest pain on exertion. No abdominal pain, change in bowel habits, black or bloody stools. No urinary tract symptoms. No new or unusual musculoskeletal symptoms. PAST SURGICAL HISTORY Procedure Laterality Date ANKLE RIGHT OP SURGERY Right 12/18/2020 Dr Arreola [facility] ARTHROPLASTY TOTAL SHOULDER 11/09/2008 right ARTHROSCOPY OF JOINT UNLISTED Elbow right CABG (4) VEIN GRAFTS & ARTERIAL GRAFT(S) 07/21/2021 In [facility] [place] COLONOSCOPY FLX DX W/COLLJ SPEC WHEN PFRMD 09/01/2005 Colonoscopy COLONOSCOPY FLX DX W/COLLJ SPEC WHEN PFRMD 09/27/2015 Colonoscopy PAST SURGICAL HISTORY OF 07/21/2021 Coronary Artery Bypass Graft x 4 REMOVAL OF TONSILS,<12 Y/O Medication List Current Outpatient Medications Medication Sig Dispense Refill ferrous sulfate 325 mg (65 mg iron) tablet Take 1 tablet by mouth three times daily with meals. Newdose as of Mar 18 2022 atorvastatin (LIPITOR) 40 mg tablet Take 40 mg by mouth once daily. metoprolol tartrate, short acting, (LOPRESSOR) 50 mg tablet TAKE 1 TABLET BY MOUTH TWICE DAILY 180 tablet 3 acetaminophen/diphenhydramine (TYLENOL PM ORAL) Take by mouth as needed. rivaroxaban (XARELTO) 20 mg tablet Take 1 tablet by mouth daily with dinner. 90 tablet 3 levothyroxine (SYNTHROID) 112 mcg tablet TAKE 1 TABLET BY MOUTH ONCE DAILY 90 tablet 3 melatonin 5 mg tablet Take 5 mg by mouth at bedtime as needed. polyethylene glycol 3350 (MIRALAX) 17 gram packet Take by mouth once daily. Dissolve dose in 4 - 8 ounces of liquid and take as directed. 1/2 capful every other day nitroglycerin sublingual (NITROSTAT) 0.4 mg SL tablet Dissolve 0.4 mg under the tongue every 5 minutes as needed. Per hospital discharge 08/01/2021 cyanocobalamin (VITAMIN B-12) 1,000 mcg tab Take 1 tablet by mouth once daily. 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 cholecalciferol, vitamin D3, (VITAMIN D-3) 400 unit cap Take 400 Units by mouth once daily. MULTIVITAMIN TABLET Take one(1) tablet daily. 0 No current facility-administered medications for this visit. Weight Summary: Weight change:Up 2# Body mass index is 32.54 kg/m . Last Wt 03/21/22 : 91.4 kg (201 lb 9.6 oz) 03/18/22 : 90.3 kg (199 lb) 02/28/22 : 94.5 kg (208 lb 4.8 oz) 02/26/22 : 88.5 kg (195 lb) 12/10/21 : 89.8 kg (198 lb) Weight and Change in Weight Most Recent Value Weight 91.4 kg (201 lb 9.6 oz) Change in Weight 1.179 kg Physical Exam: BP 131/52 (BP Site: Left Arm, BP Position: Sitting, BP Cuff Size: Large Adult) Pulse 70 Ht 167.6 cm (5' 6) Wt 91.4 kg (201 lb 9.6 oz) SpO2 97% BMI 32.54 kg/m Alert, oriented, pleasant, pale. Heart regular,lungs clear. BLE have clear skin, no erythema, seeping, or pain. The LLE has a rounded superficial erythema 1 cm, anterior tibial area. The RLE has significant swelling, wearing light socks. SCREENINGS Health Maintenance Listing ADVANCE DIRECTIVE DISCUSSION Never done COVID-19 VACCINE(4 - Booster for Pfizer series) due on 12/21/2021 TEST RESULTS: Lab and Diagnostic Studies: A/P: ASSESSMENT/PLAN: 1. Leg swelling - ICD9: 729.81, ICD10: M79.89 (primary diagnosis) No sign of infection, seeping. Chronic venous insuff from bypass graft. He has ordered compression stockings over the internet. 2. Primary hypertension - ICD9: 401.9, ICD10: I10 - fair control Guillermina Cummings APRN.OFFICE MACHINES SALES REPRESENTATIVE I spent a total of 10 minutes on the date of the service which included preparing to see the patient, [id number] patient care, completing clinical documentation, obtaining and/or reviewing separately obtained history and performing a medically appropriate examination. Follow Up Plans: Pending labs, follow up arranged with pcp Electronically signed by Guillermina Cummings APRN.OFFICE MACHINES SALES REPRESENTATIVE at 03/21/2022 3:30 PM EDT documented in this encounterMer[facility]05-13-2022 History of Present illness Narrative* Sanket Solo, PT - 03/21/2022 9:51 AM EDT Episode Visit Count: 1 Therapist That Will Oversee The Plan Of Care: Sanket Solo PT Start of Care Date: 03/21/22 Onset Date: 03/21/18 Plan of Care Certification Date: 03/21/22 Next Certification Due Date: 05/20/22 Patient Identified by Name and Date of : Yes REHABILITATION AND SPORTS THERAPY PHYSICAL THERAPY EVALUATION PLAN OF CARE: Assessment: Srini Luis presents with chief complaint of chronic lumbosacral pain that interfereswith standing;walking . He presents with impairments in balance, gait, joint mobility, overall function, range of motion and strength . PROMIS (Patient-Reported Outcomes Measurement Information System) scores were reviewed and all domains identified as a rehabilitation concern. Prognosis for therapy is Fair due to: clinical presentation;multiple co- morbidities;advanced age;chronic nature of impairments . He will benefit from skilled therapy services to meet the goals established for this plan of care as noted below. Goals for Episode of Care: created on 03/21/22 through 05/20/22 1. [place] in home exercise program. 2. Patient will decrease pain rating by 2 points to meet minimal clinical important difference for numeric pain rating scale. 3. Able to walk at least 5 minutes with functional gait in the community without onset pain. 4. Patient will Improve Timed Up and Go to 11 seconds to demonstrate decreased risk of falling. 5. Patient will improve 5 time sit to stand to 16 seconds, without use of hands to assist, to demonstrate improvement in functional lower extremity strength. 6. Increased strength of bilateral hips and thighs to 4+/5 for improved functional strength with activities of daily living. Patient Goals: pain relief, improve tolerance to walking Planned Interventions, Frequency, and Duration: Current Frequency: 1x/week Duration: 8 weeks Total Number of Visits Planned: 8 Planned Treatment Interventions: Therapeutic exercise (95362);Neuromuscular re- education (06162);Manual therapy (03928);Therapeutic activities (44622);Self- custodial management (11071);Patient/Family/Caregiver Education;Functional training;General Conditioning PLAN FOR NEXT VISIT: (assess response to flexion biased stretchig, add piriformis and HS stretching, neutral core PREs) Patient demonstrates good understanding of plan of care and treatment. The above goals and plan of care were discussed and agreed upon by patient/family. SUBJECTIVE: Srini Luis is a 86 year old male seen today for chronic low back pain. Saw a neurosurgeon in [place] 3-4 years ago due to bilateral lower extremity pain, and ankle pain. Had a right ankle replacement. Now not experiencing any referred pain of significance. Pain primarily in the left and right lumbosacral region. Walking is limited. Also painful with bed mobility and changing position while sitting. Denies numbness/paresthesias. Multiple falls, typically at night, uses a walker during the evenings. Patient Goals: pain relief, improve tolerance to walking Functional Limitations: standing;walking Prior Level of Function: Independent without limitations Relevant History Past Relevant Medical Conditions: Arthritis;Cardiac;Thyroid Disease;Hypertension (CABG(4), MG) Past Relevant Surgical Conditions: (R ankle replacement, B Total shoulder replacements) Employment: Retired Intake Information: Prescription present Falls Interview: Two or more falls in the last year;Fall without injury in the last year;Uses an assistive device Falls Intervention: Instructed patient on safety and use of assistive device and awareness in regards to falls prevention. Spine History Pain is Worse Always: Walking Pain is Better Always: Sitting;Standing (flexion) Previous Episodes: (chronic) Sleeping Position: Supine;Side lying right Sleep Affected by Pain: Pain awakens Pain: Pain Pain Level: 0 Pain Location: Back Description: Aching Frequency: Intermittent Detailed Pain Score: Yes Worst Pain Level: 8 Best Pain Level: 0 PROMIS Scales Higher is Better 11/12/2021 02/27/2022 03/21/2022 Phys Func - Score - 33 (moderate dysfunction) - Phys Func - Percentile - 4 % - Social Roles - Score - 37 (moderate dysfunction) - Social Role - Percentile - 10 % - GH Physical - Score 44.9 (Good) 29.6 (Poor) - GH Physical - Percentile 31 % 2 % - GH Mental - Score 50.8 (Very Good) 45.8 (Good) - GH Mental - Percentile 53 % 34 % - Self-Eff Symptom - Score - - 42 (Average) Self-Eff Symptom - Percentile - - 21 % T-scores: mean of general population = 50. 5 points is clinically meaningfully difference Percentiles provide an indication of how the patient's score ranks in relation to the general population. Higher percentile rankings indicate better function/quality of life. 50th percentile is the average of the general population and indicates half of respondents had a worse score. Lower is Better 02/27/2022 Fatigue - Score 69 (moderate) Fatigue - Percentile 3 % T-scores: mean of general population = 50. 5 points is clinically meaningfully difference Percentiles provide an indication of how the patient's score ranks in relation to the general population. Higher percentile rankings indicate better function/quality of life. 50th percentile is the average of the general population and indicates half of respondents had a worse score. OBJECTIVE MEASURES WITH LEVEL OF FUNCTION: Posture / Alignment Posture: Elevated shoulder -left;Decreased lumbar lordosis Sitting Posture: Fair Sensation - Lumbar Sensation: Grossly Intact Lumbar Spine AROM Lumbar Flexion: Moderate limitation Lumbar Extension: Moderate limitation Lumbar L Side [place]: Moderate limitation Lumbar R Side-Bend: Major limitation LE PROM Tested?: Yes Repeated Test Movements - Lumbar Lumbar Pretest Symptoms (Lying): no pain RFIL - Symptoms After: (no pain) Other Lumbar Repeated Test Movements: Yes Other Repeated Test Movements - Lumbar RFISit / Symptoms During: (no pain) RFISit / Symptoms After: (no pain- comfortable) LE PROM R LE PROM: hip and knee WFL L LE PROM : hip and knee WFL LE Flexibility Flexibility: Hamstring Flexibility R Hamstring Flexibility: 35'SLR L Hamstring Flexibility: 35'SLR LE Strength R Hip Extension: 4+/5 R Hip Flexion (L2): 4/5 R Hip ABduction: 4/5 R Knee Extension (L3): 4+/5 R Knee Flexion: 5/5 R Ankle Dorsiflexion (L4): 3-/5 (limited rom and weakness) R Great Toes Extension (L5, S1): 4/5 L Hip Extension: 4+/5 L Hip Flexion (L2): 4/5 L Hip ABduction: 4/5 L Knee Extension (L3): 5/5 L Knee Flexion: 5/5 L Ankle Dorsiflexion (L4): 5/5 L Great Toes Extension (L5, S1): 4/5 Special Tests - Hip and Spine Hip and Spine Special Tests: DEAN Test;SLR Test SLR Test: Right Negative;Left Negative DEAN Test: Right Negative;Left Negative Gait Weight Bearing Status: FWB Gait: Independent Gait Device: None Gait Deviations: General Deviations General Deviations/Observations: Arm swing decreased;[place] decreased;Difficulty changing direction/turning;Flexed trunk posture Gait Observation: (mildly ataxic) Functional Performance Test Results Assistive Device: None 5 Times Sit to Stand Test : 0 sec (16.1 seconds, BUE support required) Timed Up and Go (sec): 12.4 sec Education: Education Barriers: None Learning/educational needs: Plan of Care;Home exercise program;Posture;Body Mechanics;Safety TREATMENT: PT Treatment Interventions: Therapeutic Exercise Evaluation Evaluation Therapeutic Exercise: 1: discussed POC, including the plan to begin skilled PT at 1x/wk for 4 weeks 2: *begin repeated DANITA 5holds 15-20 reps at3-4x/day to tolerance 3: *trial of seated lumbar flexion with OP 5holds x10 as an alternative stretch 4: suggested stretching into lumbar flexion at 3-4x/day to tolerance, with education to discontinueif he finds them aggravating Skilled Intervention: Reviewed and educated patient on additions/changes for home exercise program as above (*). Billing * Evaluation Low Complexity: 1 Unit Therapeutic Exercise Treatment Minutes: 10 Total Treatment Time Minutes (timed/untimed): 10 Sanket Solo PT documented in this encounterMer[facility]05-10-2022 History of Present illness Narrative* Israel Pruitt, DO - 03/18/2022 10:55 AM EDT This Team Access Model visit is a phone encounter. It required patient-provider interaction for themedical decision making as documented below. Patient was offered a virtual/telemedicine appointmentin lieu of an office visit due to recommendations to reduce patient exposure to COVID-19. Telephone was used for evaluation of this patient. Patient agrees to the visit: Yes Patient Location: [place] Patient presents with: 4 month phone visit: lab review HPI: Srini Luis is a 86 year old male who is having a telephone visit today for routine OV with us today. Other than the patients back pain , the patients feeling fine The patients back pain is at a point where the patient is seeing spine Within the [facility] L spine film within the last few days , positive for spondylolisthesis and sever DJD of the L spine, no fracture noted Pending PT , starts March 21 , pending response to therapy and possible injections Notes no radicular sxs , no weakness in the legs . Foot and ankle as well No dizziness , lightheadedness , no near syncope The patients had falls , seems the 2 falls were at night , and was using a walker and fell with unstable gait. No syncope , no dizziness , no cardiac issues as a reason for fall Notes poor stamina , and gets winded easily Notes ankle edema , seems the appearance is right leg >> left leg . Early in day , right LE BTK is more swollen , states that this is both sides not unilateral Post op CABG , right LE was the leg where grafts were removed , swelling is more in the right vs left per patient No pain in the calves . Already on Xarelto Notes intermittent sleep issues, lower legs twitch and spasms , seems very restless at night . No restless in the legs prior to bedtime the patient states and agrees . No mood issues REVIEW OF SYSTEMS: CONSTITUTIONAL: No fevers, chills, nightsweats, unintended weight loss HEENT: Denies frequent or severe heaches, nasal congestion/sinus symptoms, problematic allergy problems. EYES: No diplopia or blurry vision. CARDIOVASCULAR: No chest pain, dyspnea, palpitations, orthopnea, PND, ankle edema. PULM: No dyspnea, unexplained cough. GI: No dysphagia/odynophagia, problematic reflux, constipation, diarrhea, changes in stool habits, hematochezia, melena. : No new urinary complaints, including dysuria, gross hematuria or pyuria. NEURO: No new balance problems, peripheral weakness/paresthesias or numbness of concern. See issuesregarding nocturnal restlessness MUSC-SKEL: See HPI above for details , regarding spine , and RLS at bedtime PSY: No concerns regarding depression, anxiety or panic. INTEGUMENTARY: No new skin changes (rash, new or changing mole, new growth) Patient Care Team: Israel Pruitt DO as PCP - General (Internal Medicine) Laron Arreola (Orthopedics) Israel Minor MD (Cardiology) PAST MEDICAL HISTORY Diagnosis Date CAD (coronary artery disease) Diverticulosis History of anemia Hx of CABG 07/22/2021 4 vessel CABG with ORNELAS-LAD, SVG-RI, SVG-OM, and SVG-RCA in [place] Hx of colonoscopy 09/27/2015 no reported polyps per patient recollection Hypertension Hypothyroidism USP current use of anticoagulants with INR goal of 2.0-3.0 Lumbar stenosis MRI 2018 , severe LCS L2-3 Mixed hyperlipidemia Myasthenia gravis (HCC) Last seen by neurology July 29, 2017. 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 2017 when he's been off medication Nocturnal hypoxemia On oxygen at night Osteoarthritis, generalized PAF (paroxysmal atrial fibrillation) (HCC) 2020 Post CABG atrial fibrillation PVC's (premature ventricular contractions) RBBB Status post ligation of left atrial appendage 07/2021 At time of CABG PAST SURGICAL HISTORY Procedure Laterality Date ANKLE RIGHT OP SURGERY Right 12/18/2020 Dr Arreola [facility] ARTHROPLASTY TOTAL SHOULDER 11/09/2008 right ARTHROSCOPY OF JOINT UNLISTED Elbow right CABG (4) VEIN GRAFTS & ARTERIAL GRAFT(S) 07/21/2021 In [facility] COLONOSCOPY FLX DX W/COLLJ SPEC WHEN PFRMD 09/01/2005 Colonoscopy COLONOSCOPY FLX DX W/COLLJ SPEC WHEN PFRMD 09/27/2015 Colonoscopy PAST SURGICAL HISTORY OF 07/21/2021 Coronary Artery Bypass Graft x 4 REMOVAL OF TONSILS,<12 Y/O FAMILY HISTORY Problem Relation Age of Onset Heart Mother Heart Father CHF Colon Cancer No Family History Prostate Cancer No Family History Blood Clots No Family History NO PE OR DVT Social History Tobacco Use Smoking status: Former Smoker Quit date: 08/11/1989 Years since quittin.6 Smokeless tobacco: Never Used Tobacco comment: quit 18-19 years ago Vaping Use Vaping Use: Never used Substance Use Topics Alcohol use: Yes Alcohol/week: 12.5 standard drinks Types: 2 Glasses of Wine (5oz), 2 Cans of Beer (12oz), 1 Mixed Drinks per week Comment: 1-2 beers per week Drug use: No ACTIVE PROBLEM LIST 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 Mixed Hyperlipidemia Hypothyroidism Generalized Osteoarthrosis, Unspecified Site Primary Localized Osteoarthrosis, Shoulder Region Osteoarthrosis, Unspecified Whether Generalized Or Localized, Other Specified Sites Spinal Stenosis of Lumbar Region With Neurogenic Claudication Insomnia Erectile Dysfunction Back Pain Essential Hypertension, Benign Myasthenia Gravis (Hcc) S/P Shoulder Replacement B12 Deficiency Vitamin D Deficiency Macrocytosis Venous Stasis of Both Lower Extremities Cad (Coronary Artery Disease) Diverticulosis History of Anemia Hx of Cabg Hx of Colonoscopy Hypertension Lumbar Stenosis Status Post Ligation of Left Atrial Appendage Osteoarthritis, Generalized Paf (Paroxysmal Atrial Fibrillation) (Hcc) Correction Current Use of Anticoagulants With Inr Goal of 2.0-3.0 Nocturnal Hypoxemia Pvc's (Premature Ventricular Contractions) Benign Hypertension Rbbb ALLERGIES Allergen Reactions Simvastatin Other: See Comments Elevated CK MEDICATIONS: atorvastatin (LIPITOR) 40 mg tablet Take 40 mg by mouth once daily. FEROSUL 325 mg (65 mg iron) tablet TAKE 1 TABLET BY MOUTH TWICE DAILY WITH MEALS. DO NOT TAKE WITHIN 2 HOURS OF COUMADIN OR SYNTHROID. metoprolol tartrate, short acting, (LOPRESSOR) 50 mg tablet TAKE 1 TABLET BY MOUTH TWICE DAILY acetaminophen/diphenhydramine (TYLENOL PM ORAL) Take by mouth as needed. rivaroxaban (XARELTO) 20 mg tablet Take 1 tablet by mouth daily with dinner. levothyroxine (SYNTHROID) 112 mcg tablet TAKE 1 TABLET BY MOUTH ONCE DAILY melatonin 5 mg tablet Take 5 mg by mouth at bedtime as needed. polyethylene glycol 3350 (MIRALAX) 17 gram packet Take by mouth once daily. Dissolve dose in 4 - 8 ounces of liquid and take as directed. 1/2 capful every other day nitroglycerin sublingual (NITROSTAT) 0.4 mg SL tablet Dissolve 0.4 mg under the tongue every 5 minutes as needed. Per hospital discharge 08/01/2021 cyanocobalamin (VITAMIN B-12) 1,000 mcg tab Take 1 tablet by mouth once daily. 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 cholecalciferol, vitamin D3, (VITAMIN D-3) 400 unit cap Take 400 Units by mouth once daily. MULTIVITAMIN TABLET Take one(1) tablet daily. EXAM:BP 168/80 Wt 90.3 kg (199 lb) BMI 32.12 kg/m No weight was completed today Last Wt 03/18/22 : 90.3 kg (199 lb) 02/28/22 : 94.5 kg (208 lb 4.8 oz) 02/26/22 : 88.5 kg (195 lb) 12/10/21 : 89.8 kg (198 lb) BP at home seems poorly controlled , has BP taken at local [facility] in the last 2 weeks , values prior to that have been stable ie WNL PHYSICAL EXAM: No examination today Labs from Mar 12 2022 : HGB dropped to 8.7, was 9.5 MCV 118 Platelets are normal , and WBC was normal at 6.01 LFTs normal except slight elevated total bilirubin 1.4 FBS was 93 Serum creat normal 1.06 , Na 140 , potassium was 5.1 Total chol was 68 TGs 46 HDL was 42 LDL was 17 Vitamin D was 61 TSH was 3.500 , free T4 1.2 ASSESSMENT/PLAN: 1. Anemia, unspecified type - ICD9: 285.9, ICD10: D64.9 (primary diagnosis) See instructions , evaluate iron levels , increase po Fe to TID, may need IV Fe TBD, check stool for OB , and for now no changes in Xarelto and ASA for PAF and ASHD - IRON + TIBC - FERRITIN BLD - FECAL OCCULT BLOOD TEST 2. Iron deficiency - ICD9: 280.9, ICD10: E61.1 See above - IRON + TIBC - FERRITIN BLD - FECAL OCCULT BLOOD TEST 3. Macrocytosis - ICD9: 289.89, ICD10: D75.89 See above , adding B12 check to labs - VITAMIN B12 BLOOD - FECAL OCCULT BLOOD TEST 4. Restless legs syndrome with nocturnal myoclonus - ICD9: 333.94, 333.2, ICD10: G25.81, G25.3 May very well be related to anemia , and notable Fe deficiency requiring correction for symptom andanemia control 5. Spinal stenosis of lumbar region with neurogenic claudication - ICD9: 724.03, ICD10: M48.062 Pending PT , starting March 21 6. Paroxysmal atrial fibrillation (HCC) - ICD9: 427.31, ICD10: I48.0 Stable 7. Hypothyroidism, unspecified type - ICD9: 244.9, ICD10: E03.9 - Instructed patient on importance of taking on an empty stomach either first thing in the morning or at bedtime. - continue current dose of Synthroid 0.112 mg Stable - Continue current medications 8. Hx of four vessel coronary artery bypass graft - ICD9: V15.1, ICD10: Z95.1 Stable 9. Ankle edema, bilateral - ICD9: 719.07, ICD10: M25.471, M25.472 Stable , seems in keeping with what is expected for patient 10. Mixed hyperlipidemia - ICD9: 272.2, ICD10: E78.2 - good control - Continue current medication. 11. Essential hypertension, benign - ICD9: 401.1, ICD10: I10 - - Recommended regular aerobic exercise. - Recommend home blood pressure monitoring, to bring results in on next visit - Visit with MAURICIO Sarmiento this week to evaluate BP And skin concerns - Goal of BP <130/80 12. Constipation due to slow transit - ICD9: 564.01, ICD10: K59.01 Stable , doing well Time spent: 30 Follow up items for staff: #1 Please have patient seen in the office in the next 2 to 3 days by Guillermina , check BP, check leg and skin concerns, and draw labs , ie Fe levels , Ferritin, B12 , and organize stool for OB as well #2 Increase po Fe to TID dose for now #3 possible IV Fe , TBD #4 No changes in current meds #5 RLS at night patient aware may be related to Fe deficiency and anemia #6 Follow up with me / Guillermina 3 months #7 Will send out labs for next OV when the decisions are made regarding anemia and its work up #8 Please have patient obtain 4th COVID vaccine , 2nd booster per guidelines Israel Pruitt DO * Yadira Walsh LPN - 03/18/2022 10:17 AM EDT Pt is having a 4 month office visit with lab review Medication list reviewed Yadira Walsh LPN documented in this encounter[facility] History of Present illness Narrative* Guillermina Cummings, MANAGER DAIRY.OFFICE MACHINES SALES REPRESENTATIVE - 02/26/2022 3:17 PM EDT Chief Reason For Appointment Patient presents with: Breathing Problem Edema Pain, Back Srini Luis is a 86 year old male who presents for an acute visit Last office visit date: 11/13/2021 Accompanied By spouse Have you had any critical events, hospital stays, ER visits, surgeries or procedures since your last visit here in our office: No Specialists/Other Healthcare Providers Seen: Patient Care Team: Israel Pruitt DO as PCP - General (Internal Medicine) Laron Arreola (Orthopedics) Concerns/history: He is here for some worsening back pains, and by his estimation, he felt that the back pain was then triggering sob. His pain is in the low back. He has been through quite a bit lately. [place] heart [place], and says he can't even keep up with his on a normal walk. He finds need to sit down to alleviate his back pains. He was seen and is current with cardiology visits. SOB was noted at that visit. He tells me that he has spinal stenosis, and was seen by a neurosurgeon at [facility] I was able to see some notes and also his MRI of lumbar. This MRI many years ago showed pretty severe stenosis. He mostly had leg pains, but now things have changed and he now has back pains. He was not quite sure how he wanted to proceed. Seems documented some issues with his back at a previous visit. However, an appointment was not arranged. He was open to treatment and further evaluation of his symptoms. 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) - 11/09/2020 Comment: Post CABG atrial fibrillation B12 Deficiency - 07/11/2020 Vitamin D Deficiency - 07/11/2020 Macrocytosis - 07/11/2020 Venous Stasis of Both Lower Extremities - 07/11/2020 Hx of Colonoscopy - 09/27/2015 Comment: no reported polyps per patient recollection S/P Shoulder Replacement - 02/08/2015 Myasthenia Gravis ([facility], 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 shoulder Generalized Osteoarthrosis, Unspecified Site - 06/05/2006 Comment: [facility] [place] Mixed Hyperlipidemia - 07/04/2005 Hypothyroidism - 07/04/2005 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 - 09/21/2003 ROS: See HPI. Severe low back with ambulation, alleviated with sitting. Denies chest pains. States sob, that seems to occur with walking, but in the setting of severe back pains. PAST SURGICAL HISTORY Procedure Laterality Date ANKLE RIGHT OP SURGERY Right 12/18/2020 Dr Arreola [facility] ARTHROPLASTY TOTAL SHOULDER 11/09/2008 right ARTHROSCOPY OF JOINT UNLISTED Elbow right CABG (4) VEIN GRAFTS & ARTERIAL GRAFT(S) 07/21/2021 In [facility] COLONOSCOPY FLX DX W/COLLJ SPEC WHEN PFRMD 09/01/2005 Colonoscopy COLONOSCOPY FLX DX W/COLLJ SPEC WHEN PFRMD 09/27/2015 Colonoscopy PAST SURGICAL HISTORY OF 07/21/2021 Coronary Artery Bypass Graft x 4 REMOVAL OF TONSILS,<12 Y/O Medication List Current Outpatient Medications Medication Sig Dispense Refill FEROSUL 325 mg (65 mg iron) tablet TAKE 1 TABLET BY MOUTH TWICE DAILY WITH MEALS. DO NOT TAKE WITHIN 2 HOURS OF COUMADIN OR SYNTHROID. 60 tablet 3 metoprolol tartrate, short acting, (LOPRESSOR) 50 mg tablet TAKE 1 TABLET BY MOUTH TWICE DAILY 180 tablet 3 acetaminophen/diphenhydramine (TYLENOL PM ORAL) Take by mouth. rivaroxaban (XARELTO) 20 mg tablet Take 1 tablet by mouth daily with dinner. 90 tablet 3 atorvastatin (LIPITOR) 40 mg tablet Take 1 tablet by mouth once daily. 90 tablet 3 levothyroxine (SYNTHROID) 112 mcg tablet TAKE 1 TABLET BY MOUTH ONCE DAILY 90 tablet 3 melatonin 5 mg tablet Take 5 mg by mouth daily at bedtime. polyethylene glycol 3350 (MIRALAX) 17 gram packet Take by mouth once daily. Dissolve dose in 4 - 8 ounces of liquid and take as directed. 1/2 capful every other day nitroglycerin sublingual (NITROSTAT) 0.4 mg SL tablet Dissolve 0.4 mg under the tongue every 5 minutes as needed. Per hospital discharge 08/01/2021 cyanocobalamin (VITAMIN B-12) 1,000 mcg tab Take 1 tablet by mouth once daily. 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 cholecalciferol, vitamin D3, (VITAMIN D-3) 400 unit cap Take 400 Units by mouth once daily. MULTIVITAMIN TABLET Take one(1) tablet daily. 0 No current facility-administered medications for this visit. Weight Summary: Weight change:Down 3# Body mass index is 30.54 kg/m . Last Wt 02/26/22 : 88.5 kg (195 lb) 12/10/21 : 89.8 kg (198 lb) 11/13/21 : 92.5 kg (204 lb) 09/20/21 : 93 kg (205 lb) 09/02/21 : 98.9 kg (218 lb) Weight and Change in Weight Most Recent Value Weight 88.5 kg (195 lb) Change in Weight -1.361 kg Physical Exam: BP 120/60 (BP Site: Left Arm, BP Position: Sitting, BP Cuff Size: Large Adult) Pulse 65 Ht 170.2 cm (5' 7) Wt 88.5 kg (195 lb) SpO2 94% BMI 30.54 kg/m Alert, oriented, no distress at rest. SCREENINGS Health Maintenance Listing ADVANCE DIRECTIVE DISCUSSION Never done TEST RESULTS: Lab and Diagnostic Studies: A/P: ASSESSMENT/PLAN: 1. Chronic midline low back pain without sciatica - ICD9: 724.2, 338.29, ICD10: M54.50, G89.29 (primary diagnosis) The patient has pain low in his back in the setting of known severe spinal stenosis. He describes aclassic symptom of alleviation of pain when he sits down. This is distressing, and he desires further evaluation. He seems to want to think about where to go. This was primarily a discussion for the patient seek advice on further evaluation. 2. Spinal stenosis of lumbar region with neurogenic claudication - ICD9: 724.03, ICD10: M48.062 As above. Guillermina Cummings APRN.OFFICE MACHINES SALES REPRESENTATIVE I spent a total of 25 minutes on the date of the service which included preparing to see the patient, [id number] patient care, completing clinical documentation, obtaining and/or reviewing separately obtained history and counseling and educating the patient/family/caregiver. Follow Up Plans: Pending his need for consultations arranged. Electronically signed by Guillermina Cummings APRN.OFFICE MACHINES SALES REPRESENTATIVE at 02/27/2022 5:00 PM EDT documented in this encounterMer[facility]04-14-2022 Miscellaneous Notes* Telephone Encounter - Yadira Walsh LPN - 02/20/2022 5:48 PM EDT Pt notified that a new RX was sent on 01-20-22 to [facility]\ will call and get that sent Yadira Walsh LPN documented in this encounterMer[facility]04-14-2022 Miscellaneous Notes* Telephone Encounter - Micaela SILVEIRA - 02/20/2022 5:10 PM EDT Error documented in this encounterMercy [facility]04-11-2022 Miscellaneous Notes* Telephone Encounter - Israel Pruitt, - 02/17/2022 11:53 AM EDT The following approved medication requests have been transmitted electronically. Signed Prescriptions Disp Refills FEROSUL 325 mg (65 mg iron) tablet 60 tablet 3 Sig: TAKE 1 TABLET BY MOUTH TWICE DAILY WITH MEALS. DO NOT TAKE WITHIN 2 HOURS OF COUMADIN OR SYNTHROID. MARY: No Authorizing Provider: ISRAEL PRUITT DO * Telephone Encounter - Micaela SILVEIRA - 02/17/2022 11:46 AM EDT Pharmacy electronically requesting refills as follows: Pending Prescriptions Disp Refills FEROSUL 325 MG (65 MG IRON) TABLET 60 tablet 3 Sig: TAKE 1 TABLET BY MOUTH TWICE DAILY WITH MEALS. DO NOT TAKE WITHIN 2 HOURS OF COUMADIN OR SYNTHROID. MARY: Yes Please review and advise. Micaela SILVEIRA documented in this encounterMercy [facility]04-04-2022 Miscellaneous Notes* Telephone Encounter - Guillermina Cummings APRN.CNP - 02/10/2022 9:59 AM EDT The following approved medication requests have been transmitted electronically. Signed Prescriptions Disp Refills ferrous sulfate 325 mg (65 mg iron) tablet 60 tablet 11 Sig: Take 1 tablet by mouth twice daily with meals. Do not take within 2 hours of Coumadin or Synthroid. MARY: No Guillermina Cummings APRN.CNP * Telephone Encounter - Micaela SILVEIRA - 02/10/2022 8:26 AM EDT Pending Prescriptions Disp Refills FERROUS SULFATE 325 MG (65 MG IRON) TABLET 60 tablet 3 Sig: Take 1 tablet by mouth twice daily with meals. Do not take within 2 hours of Coumadin or Synthroid. MARY: No Micaela SILVEIRA documented in this encounterMercy [facility]04-04-2022 Miscellaneous Notes* Telephone Encounter - Pavan Bell - 02/10/2022 8:48 AM EDT Spoke with patient he stated he will call back once he figures out if he needs an appointment for paperwork from [place]. documented in this encounterMercy [facility]02-05-2013 History of Past illness Narrative* Problem Noted Date Resolved Date Xerosis cutis 12/14/2012 01/02/2015 Pruritus 12/14/2012 01/02/2015 Actinic skin damage 12/14/2012 01/02/2015 Solar lentigo 12/14/2012 01/02/2015 Viral warts, unspecified 09/29/2010 015 Irritated//Inflamed Seborrheic Keratosis 010 01/02/2015 Follow-up examination, following unspecified dheeraj diane 06/11/2009 08/14/2009 ACTINIC DAMAGE///SOLAR SKIN DAMAGE NOS 8 01/02/2015 Dermatitis due to cosmetics 04/07/200812/11 ACTINIC DAMAGE///CHR SOLAR SKIN DAMAGE NOS 04/0701/02/2015 Other seborrheic keratosis 04/07/200801/02 SOLAR LENTIGINES///DYSCHROMIA OTHER 04/07/2008 01/02/2015 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 01/02/2015 Special screening for malignant neoplasms, colon 08/11/2005 01/02/2015 Follow-up examination following surgery 10/31/20 03 01/02/2015 documented as of this encounter (statuses as of 02/10/2022) [facility] of Past illness Narrative* Problem Noted Date Resolved Date Xerosis cutis 12/14/2012 01/02/2015 Pruritus 12/14/2012 01/02/2015 Actinic skin damage 12/14/2012 01/02/2015 Solar lentigo 12/14/2012 01/02/2015 Viral warts, unspecified 09/29/2010 015 Irritated//Inflamed Seborrheic Keratosis 010 01/02/2015 Follow-up examination, following unspecified dheeraj diane 06/11/2009 08/14/2009 ACTINIC DAMAGE///SOLAR SKIN DAMAGE NOS 8 01/02/2015 Dermatitis due to cosmetics 04/07/200812/11 ACTINIC DAMAGE///CHR SOLAR SKIN DAMAGE NOS 04/0701/02/2015 Other seborrheic keratosis 04/07/200801/02 SOLAR LENTIGINES///DYSCHROMIA OTHER 04/07/2008 01/02/2015 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 01/02/2015 Special screening for malignant neoplasms, colon 08/11/2005 01/02/2015 Follow-up examination following surgery 10/31/20 03 01/02/2015 documented as of this encounter (statuses as of 02/10/2022) [facility] illness Narrative* Problem Noted Date Resolved Date Xerosis cutis 12/14/2012 01/02/2015 Pruritus 12/14/2012 01/02/2015 Actinic skin damage 12/14/2012 01/02/2015 Solar lentigo 12/14/2012 01/02/2015 Viral warts, unspecified 09/29/2010 015 Irritated//Inflamed Seborrheic Keratosis 010 01/02/2015 Follow-up examination, following unspecified dheeraj diane 06/11/2009 08/14/2009 ACTINIC DAMAGE///SOLAR SKIN DAMAGE NOS 8 01/02/2015 Dermatitis due to cosmetics 04/07/200812/11 ACTINIC DAMAGE///CHR SOLAR SKIN DAMAGE NOS 04/0701/02/2015 Other seborrheic keratosis 04/07/200801/02 SOLAR LENTIGINES///DYSCHROMIA OTHER 04/07/2008 01/02/2015 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 01/02/2015 Special screening for malignant neoplasms, colon 08/11/2005 01/02/2015 Follow-up examination following surgery 10/31/20 03 01/02/2015 documented as of this encounter (statuses as of 02/17/2022) [facility] Narrative* Problem Noted Date Resolved Date Xerosis cutis 12/14/2012 01/02/2015 Pruritus 12/14/2012 01/02/2015 Actinic skin damage 12/14/2012 01/02/2015 Solar lentigo 12/14/2012 01/02/2015 Viral warts, unspecified 09/29/2010 015 Irritated//Inflamed Seborrheic Keratosis 010 01/02/2015 Follow-up examination, following unspecified dheeraj diane 06/11/2009 08/14/2009 ACTINIC DAMAGE///SOLAR SKIN DAMAGE NOS 8 01/02/2015 Dermatitis due to cosmetics 04/07/200812/11 ACTINIC DAMAGE///CHR SOLAR SKIN DAMAGE NOS 04/0701/02/2015 Other seborrheic keratosis 04/07/200801/02 SOLAR LENTIGINES///DYSCHROMIA OTHER 04/07/2008 01/02/2015 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 01/02/2015 Special screening for malignant neoplasms, colon 08/11/2005 01/02/2015 Follow-up examination following surgery 10/31/20 03 01/02/2015 documented as of this encounter (statuses as of 02/20/2022) [facility] Narrative* Problem Noted Date Resolved Date Xerosis cutis 12/14/2012 01/02/2015 Pruritus 12/14/2012 01/02/2015 Actinic skin damage 12/14/2012 01/02/2015 Solar lentigo 12/14/2012 01/02/2015 Viral warts, unspecified 09/29/2010 015 Irritated//Inflamed Seborrheic Keratosis 010 01/02/2015 Follow-up examination, following unspecified dheeraj diane 06/11/2009 08/14/2009 ACTINIC DAMAGE///SOLAR SKIN DAMAGE NOS 8 01/02/2015 Dermatitis due to cosmetics 04/07/200812/11 ACTINIC DAMAGE///CHR SOLAR SKIN DAMAGE NOS 04/0701/02/2015 Other seborrheic keratosis 04/07/200801/02 SOLAR LENTIGINES///DYSCHROMIA OTHER 04/07/2008 01/02/2015 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 01/02/2015 Special screening for malignant neoplasms, colon 08/11/2005 01/02/2015 Follow-up examination following surgery 10/31/20 03 01/02/2015 documented as of this encounter (statuses as of 02/20/2022) [facility] Narrative* Problem Noted Date Resolved Date Xerosis cutis 12/14/2012 01/02/2015 Pruritus 12/14/2012 01/02/2015 Actinic skin damage 12/14/2012 01/02/2015 Solar lentigo 12/14/2012 01/02/2015 Viral warts, unspecified 09/29/2010 015 Irritated//Inflamed Seborrheic Keratosis 010 01/02/2015 Follow-up examination, following unspecified dheeraj diane 06/11/2009 08/14/2009 ACTINIC DAMAGE///SOLAR SKIN DAMAGE NOS 8 01/02/2015 Dermatitis due to cosmetics 04/07/200812/11 ACTINIC DAMAGE///CHR SOLAR SKIN DAMAGE NOS 04/0701/02/2015 Other seborrheic keratosis 04/07/200801/02 SOLAR LENTIGINES///DYSCHROMIA OTHER 04/07/2008 01/02/2015 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 01/02/2015 Special screening for malignant neoplasms, colon 08/11/2005 01/02/2015 Follow-up examination following surgery 10/31/20 03 01/02/2015 documented as of this encounter (statuses as of 02/27/2022) [facility] Narrative* Problem Noted Date Resolved Date Xerosis cutis 12/14/2012 01/02/2015 Pruritus 12/14/2012 01/02/2015 Actinic skin damage 12/14/2012 01/02/2015 Solar lentigo 12/14/2012 01/02/2015 Viral warts, unspecified 09/29/2010 015 Irritated//Inflamed Seborrheic Keratosis 010 01/02/2015 Follow-up examination, following unspecified dheeraj diane 06/11/2009 08/14/2009 ACTINIC DAMAGE///SOLAR SKIN DAMAGE NOS 8 01/02/2015 Dermatitis due to cosmetics 04/07/200812/11 ACTINIC DAMAGE///CHR SOLAR SKIN DAMAGE NOS 04/0701/02/2015 Other seborrheic keratosis 04/07/200801/02 SOLAR LENTIGINES///DYSCHROMIA OTHER 04/07/2008 01/02/2015 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 01/02/2015 Special screening for malignant neoplasms, colon 08/11/2005 01/02/2015 Follow-up examination following surgery 10/31/20 03 01/02/2015 documented as of this encounter (statuses as of 03/13/2022) [facility] Narrative* Problem Noted Date Resolved Date Xerosis cutis 12/14/2012 01/02/2015 Pruritus 12/14/2012 01/02/2015 Actinic skin damage 12/14/2012 01/02/2015 Solar lentigo 12/14/2012 01/02/2015 Viral warts, unspecified 09/29/2010 015 Irritated//Inflamed Seborrheic Keratosis 010 01/02/2015 Follow-up examination, following unspecified dheeraj diane 06/11/2009 08/14/2009 ACTINIC DAMAGE///SOLAR SKIN DAMAGE NOS 8 01/02/2015 Dermatitis due to cosmetics 04/07/200812/11 ACTINIC DAMAGE///CHR SOLAR SKIN DAMAGE NOS 04/0701/02/2015 Other seborrheic keratosis 04/07/200801/02 SOLAR LENTIGINES///DYSCHROMIA OTHER 04/07/2008 01/02/2015 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 01/02/2015 Special screening for malignant neoplasms, colon 08/11/2005 01/02/2015 Follow-up examination following surgery 10/31/20 03 01/02/2015 documented as of this encounter (statuses as of 03/18/2022) [facility] Narrative* Problem Noted Date Resolved Date Xerosis cutis 12/14/2012 01/02/2015 Pruritus 12/14/2012 01/02/2015 Actinic skin damage 12/14/2012 01/02/2015 Solar lentigo 12/14/2012 01/02/2015 Viral warts, unspecified 09/29/2010 015 Irritated//Inflamed Seborrheic Keratosis 010 01/02/2015 Follow-up examination, following unspecified dheeraj diane 06/11/2009 08/14/2009 ACTINIC DAMAGE///SOLAR SKIN DAMAGE NOS 8 01/02/2015 Dermatitis due to cosmetics 04/07/200812/11 ACTINIC DAMAGE///CHR SOLAR SKIN DAMAGE NOS 04/0701/02/2015 Other seborrheic keratosis 04/07/200801/02 SOLAR LENTIGINES///DYSCHROMIA OTHER 04/07/2008 01/02/2015 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 01/02/2015 Special screening for malignant neoplasms, colon 08/11/2005 01/02/2015 Follow-up examination following surgery 10/31/20 03 01/02/2015 documented as of this encounter (statuses as of 03/21/2022) [facility] Narrative* Problem Noted Date Resolved Date Xerosis cutis 12/14/2012 01/02/2015 Pruritus 12/14/2012 01/02/2015 Actinic skin damage 12/14/2012 01/02/2015 Solar lentigo 12/14/2012 01/02/2015 Viral warts, unspecified 09/29/2010 015 Irritated//Inflamed Seborrheic Keratosis 010 01/02/2015 Follow-up examination, following unspecified dheeraj diane 06/11/2009 08/14/2009 ACTINIC DAMAGE///SOLAR SKIN DAMAGE NOS 8 01/02/2015 Dermatitis due to cosmetics 04/07/200812/11 ACTINIC DAMAGE///CHR SOLAR SKIN DAMAGE NOS 04/0701/02/2015 Other seborrheic keratosis 04/07/200801/02 SOLAR LENTIGINES///DYSCHROMIA OTHER 04/07/2008 01/02/2015 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 01/02/2015 Special screening for malignant neoplasms, colon 08/11/2005 01/02/2015 Follow-up examination following surgery 10/31/20 03 01/02/2015 documented as of this encounter (statuses as of 03/21/2022) [facility] History of Past illness Narrative* Problem Noted Date Resolved Date Xerosis cutis 12/14/2012 01/02/2015 Pruritus 12/14/2012 01/02/2015 Actinic skin damage 12/14/2012 01/02/2015 Solar lentigo 12/14/2012 01/02/2015 Viral warts, unspecified 09/29/2010 015 Irritated//Inflamed Seborrheic Keratosis 010 01/02/2015 Follow-up examination, following unspecified dheeraj diane 06/11/2009 08/14/2009 ACTINIC DAMAGE///SOLAR SKIN DAMAGE NOS 8 01/02/2015 Dermatitis due to cosmetics 04/07/200812/11 ACTINIC DAMAGE///CHR SOLAR SKIN DAMAGE NOS 04/0701/02/2015 Other seborrheic keratosis 04/07/200801/02 SOLAR LENTIGINES///DYSCHROMIA OTHER 04/07/2008 01/02/2015 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 01/02/2015 Special screening for malignant neoplasms, colon 08/11/2005 01/02/2015 Follow-up examination following surgery 10/31/20 03 01/02/2015 documented as of this encounter (statuses as of 03/24/2022) [facility] History of Past illness Narrative* Problem Noted Date Resolved Date Xerosis cutis 12/14/2012 01/02/2015 Pruritus 12/14/2012 01/02/2015 Actinic skin damage 12/14/2012 01/02/2015 Solar lentigo 12/14/2012 01/02/2015 Viral warts, unspecified 09/29/2010 015 Irritated//Inflamed Seborrheic Keratosis 010 01/02/2015 Follow-up examination, following unspecified dheeraj diane 06/11/2009 08/14/2009 ACTINIC DAMAGE///SOLAR SKIN DAMAGE NOS 8 01/02/2015 Dermatitis due to cosmetics 04/07/200812/11 ACTINIC DAMAGE///CHR SOLAR SKIN DAMAGE NOS 04/0701/02/2015 Other seborrheic keratosis 04/07/200801/02 SOLAR LENTIGINES///DYSCHROMIA OTHER 04/07/2008 01/02/2015 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 01/02/2015 Special screening for malignant neoplasms, colon 08/11/2005 01/02/2015 Follow-up examination following surgery 10/31/20 03 01/02/2015 documented as of this encounter (statuses as of 03/28/2022) [facility] History of Past illness Narrative* Problem Noted Date Resolved Date Xerosis cutis 12/14/2012 01/02/2015 Pruritus 12/14/2012 01/02/2015 Actinic skin damage 12/14/2012 01/02/2015 Solar lentigo 12/14/2012 01/02/2015 Viral warts, unspecified 09/29/2010 015 Irritated//Inflamed Seborrheic Keratosis 010 01/02/2015 Follow-up examination, following unspecified dheeraj diane 06/11/2009 08/14/2009 ACTINIC DAMAGE///SOLAR SKIN DAMAGE NOS 8 01/02/2015 Dermatitis due to cosmetics 04/07/200812/11 ACTINIC DAMAGE///CHR SOLAR SKIN DAMAGE NOS 04/0701/02/2015 Other seborrheic keratosis 04/07/200801/02 SOLAR LENTIGINES///DYSCHROMIA OTHER 04/07/2008 01/02/2015 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 01/02/2015 Special screening for malignant neoplasms, colon 08/11/2005 01/02/2015 Follow-up examination following surgery 10/31/20 03 01/02/2015 documented as of this encounter (statuses as of 04/02/2022) [facility] History of Past illness Narrative* Problem Noted Date Resolved Date Xerosis cutis 12/14/2012 01/02/2015 Pruritus 12/14/2012 01/02/2015 Actinic skin damage 12/14/2012 01/02/2015 Solar lentigo 12/14/2012 01/02/2015 Viral warts, unspecified 09/29/2010 015 Irritated//Inflamed Seborrheic Keratosis 010 01/02/2015 Follow-up examination, following unspecified dheeraj diane 06/11/2009 08/14/2009 ACTINIC DAMAGE///SOLAR SKIN DAMAGE NOS 8 01/02/2015 Dermatitis due to cosmetics 04/07/200812/11 ACTINIC DAMAGE///CHR SOLAR SKIN DAMAGE NOS 04/0701/02/2015 Other seborrheic keratosis 04/07/200801/02 SOLAR LENTIGINES///DYSCHROMIA OTHER 04/07/2008 01/02/2015 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 01/02/2015 Special screening for malignant neoplasms, colon 08/11/2005 01/02/2015 Follow-up examination following surgery 10/31/20 03 01/02/2015 documented as of this encounter (statuses as of 04/04/2022) [facility] History of Past illness Narrative* Problem Noted Date Resolved Date Xerosis cutis 12/14/2012 01/02/2015 Pruritus 12/14/2012 01/02/2015 Actinic skin damage 12/14/2012 01/02/2015 Solar lentigo 12/14/2012 01/02/2015 Viral warts, unspecified 09/29/2010 015 Irritated//Inflamed Seborrheic Keratosis 010 01/02/2015 Follow-up examination, following unspecified dheeraj diane 06/11/2009 08/14/2009 ACTINIC DAMAGE///SOLAR SKIN DAMAGE NOS 8 01/02/2015 Dermatitis due to cosmetics 04/07/200812/11 ACTINIC DAMAGE///CHR SOLAR SKIN DAMAGE NOS 04/0701/02/2015 Other seborrheic keratosis 04/07/200801/02 SOLAR LENTIGINES///DYSCHROMIA OTHER 04/07/2008 01/02/2015 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 01/02/2015 Special screening for malignant neoplasms, colon 08/11/2005 01/02/2015 Follow-up examination following surgery 10/31/20 03 01/02/2015 documented as of this encounter (statuses as of 04/11/2022) [facility] History of Past illness Narrative* Problem Noted Date Resolved Date Xerosis cutis 12/14/2012 01/02/2015 Pruritus 12/14/2012 01/02/2015 Actinic skin damage 12/14/2012 01/02/2015 Solar lentigo 12/14/2012 01/02/2015 Viral warts, unspecified 09/29/2010 015 Irritated//Inflamed Seborrheic Keratosis 010 01/02/2015 Follow-up examination, following unspecified dheeraj diane 06/11/2009 08/14/2009 ACTINIC DAMAGE///SOLAR SKIN DAMAGE NOS 8 01/02/2015 Dermatitis due to cosmetics 04/07/200812/11 ACTINIC DAMAGE///CHR SOLAR SKIN DAMAGE NOS 04/0701/02/2015 Other seborrheic keratosis 04/07/200801/02 SOLAR LENTIGINES///DYSCHROMIA OTHER 04/07/2008 01/02/2015 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 01/02/2015 Special screening for malignant neoplasms, colon 08/11/2005 01/02/2015 Follow-up examination following surgery 10/31/20 03 01/02/2015 documented as of this encounter (statuses as of 04/17/2022) [facility] History of Past illness Narrative* Problem Noted Date Resolved Date Xerosis cutis 12/14/2012 01/02/2015 Pruritus 12/14/2012 01/02/2015 Actinic skin damage 12/14/2012 01/02/2015 Solar lentigo 12/14/2012 01/02/2015 Viral warts, unspecified 09/29/2010 015 Irritated//Inflamed Seborrheic Keratosis 010 01/02/2015 Follow-up examination, following unspecified dheeraj diane 06/11/2009 08/14/2009 ACTINIC DAMAGE///SOLAR SKIN DAMAGE NOS 8 01/02/2015 Dermatitis due to cosmetics 04/07/200812/11 ACTINIC DAMAGE///CHR SOLAR SKIN DAMAGE NOS 04/0701/02/2015 Other seborrheic keratosis 04/07/200801/02 SOLAR LENTIGINES///DYSCHROMIA OTHER 04/07/2008 01/02/2015 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 01/02/2015 Special screening for malignant neoplasms, colon 08/11/2005 01/02/2015 Follow-up examination following surgery 10/31/20 03 01/02/2015 documented as of this encounter (statuses as of 05/08/2022) [facility] History of Past illness Narrative* Problem Noted Date Resolved Date Xerosis cutis 12/14/2012 01/02/2015 Pruritus 12/14/2012 01/02/2015 Actinic skin damage 12/14/2012 01/02/2015 Solar lentigo 12/14/2012 01/02/2015 Viral warts, unspecified 09/29/2010 015 Irritated//Inflamed Seborrheic Keratosis 010 01/02/2015 Follow-up examination, following unspecified dheeraj diane 06/11/2009 08/14/2009 ACTINIC DAMAGE///SOLAR SKIN DAMAGE NOS 8 01/02/2015 Dermatitis due to cosmetics 04/07/200812/11 ACTINIC DAMAGE///CHR SOLAR SKIN DAMAGE NOS 04/0701/02/2015 Other seborrheic keratosis 04/07/200801/02 SOLAR LENTIGINES///DYSCHROMIA OTHER 04/07/2008 01/02/2015 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 01/02/2015 Special screening for malignant neoplasms, colon 08/11/2005 01/02/2015 Follow-up examination following surgery 10/31/20 03 01/02/2015 documented as of this encounter (statuses as of 05/16/2022) [facility] History of Past illness Narrative* Problem Noted Date Resolved Date Xerosis cutis 12/14/2012 01/02/2015 Pruritus 12/14/2012 01/02/2015 Actinic skin damage 12/14/2012 01/02/2015 Solar lentigo 12/14/2012 01/02/2015 Viral warts, unspecified 09/29/2010 015 Irritated//Inflamed Seborrheic Keratosis 010 01/02/2015 Follow-up examination, following unspecified dheeraj diane 06/11/2009 08/14/2009 ACTINIC DAMAGE///SOLAR SKIN DAMAGE NOS 8 01/02/2015 Dermatitis due to cosmetics 04/07/200812/11 ACTINIC DAMAGE///CHR SOLAR SKIN DAMAGE NOS 04/0701/02/2015 Other seborrheic keratosis 04/07/200801/02 SOLAR LENTIGINES///DYSCHROMIA OTHER 04/07/2008 01/02/2015 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 01/02/2015 Special screening for malignant neoplasms, colon 08/11/2005 01/02/2015 Follow-up examination following surgery 10/31/20 03 01/02/2015 documented as of this encounter (statuses as of 05/26/2022) [facility] History of Past illness Narrative* Problem Noted Date Resolved Date Xerosis cutis 12/14/2012 01/02/2015 Pruritus 12/14/2012 01/02/2015 Actinic skin damage 12/14/2012 01/02/2015 Solar lentigo 12/14/2012 01/02/2015 Viral warts, unspecified 09/29/2010 015 Irritated//Inflamed Seborrheic Keratosis 010 01/02/2015 Follow-up examination, following unspecified dheeraj diane 06/11/2009 08/14/2009 ACTINIC DAMAGE///SOLAR SKIN DAMAGE NOS 8 01/02/2015 Dermatitis due to cosmetics 04/07/200812/11 ACTINIC DAMAGE///CHR SOLAR SKIN DAMAGE NOS 04/0701/02/2015 Other seborrheic keratosis 04/07/200801/02 SOLAR LENTIGINES///DYSCHROMIA OTHER 04/07/2008 01/02/2015 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 01/02/2015 Special screening for malignant neoplasms, colon 08/11/2005 01/02/2015 Follow-up examination following surgery 10/31/20 03 01/02/2015 documented as of this encounter (statuses as of 05/27/2022) [facility] History of Past illness Narrative* Problem Noted Date Resolved Date Xerosis cutis 12/14/2012 01/02/2015 Pruritus 12/14/2012 01/02/2015 Actinic skin damage 12/14/2012 01/02/2015 Solar lentigo 12/14/2012 01/02/2015 Viral warts, unspecified 09/29/2010 015 Irritated//Inflamed Seborrheic Keratosis 010 01/02/2015 Follow-up examination, following unspecified dheeraj diane 06/11/2009 08/14/2009 ACTINIC DAMAGE///SOLAR SKIN DAMAGE NOS 8 01/02/2015 Dermatitis due to cosmetics 04/07/200812/11 ACTINIC DAMAGE///CHR SOLAR SKIN DAMAGE NOS 04/0701/02/2015 Other seborrheic keratosis 04/07/200801/02 SOLAR LENTIGINES///DYSCHROMIA OTHER 04/07/2008 01/02/2015 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 01/02/2015 Special screening for malignant neoplasms, colon 08/11/2005 01/02/2015 Follow-up examination following surgery 10/31/20 03 01/02/2015 documented as of this encounter (statuses as of 05/29/2022) [facility] History of Past illness Narrative* Problem Noted Date Resolved Date Xerosis cutis 12/14/2012 01/02/2015 Pruritus 12/14/2012 01/02/2015 Actinic skin damage 12/14/2012 01/02/2015 Solar lentigo 12/14/2012 01/02/2015 Viral warts, unspecified 09/29/2010 015 Irritated//Inflamed Seborrheic Keratosis 010 01/02/2015 Follow-up examination, following unspecified dheeraj diane 06/11/2009 08/14/2009 ACTINIC DAMAGE///SOLAR SKIN DAMAGE NOS 8 01/02/2015 Dermatitis due to cosmetics 04/07/200812/11 ACTINIC DAMAGE///CHR SOLAR SKIN DAMAGE NOS 04/0701/02/2015 Other seborrheic keratosis 04/07/200801/02 SOLAR LENTIGINES///DYSCHROMIA OTHER 04/07/2008 01/02/2015 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 01/02/2015 Special screening for malignant neoplasms, colon 08/11/2005 01/02/2015 Follow-up examination following surgery 10/31/20 03 01/02/2015 documented as of this encounter (statuses as of 05/30/2022) [facility] History of Past illness Narrative* Problem Noted Date Resolved Date Xerosis cutis 12/14/2012 01/02/2015 Pruritus 12/14/2012 01/02/2015 Actinic skin damage 12/14/2012 01/02/2015 Solar lentigo 12/14/2012 01/02/2015 Viral warts, unspecified 09/29/2010 015 Irritated//Inflamed Seborrheic Keratosis 010 01/02/2015 Follow-up examination, following unspecified dheeraj diane 06/11/2009 08/14/2009 ACTINIC DAMAGE///SOLAR SKIN DAMAGE NOS 8 01/02/2015 Dermatitis due to cosmetics 04/07/200812/11 ACTINIC DAMAGE///CHR SOLAR SKIN DAMAGE NOS 04/0701/02/2015 Other seborrheic keratosis 04/07/200801/02 SOLAR LENTIGINES///DYSCHROMIA OTHER 04/07/2008 01/02/2015 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 01/02/2015 Special screening for malignant neoplasms, colon 08/11/2005 01/02/2015 Follow-up examination following surgery 10/31/20 03 01/02/2015 documented as of this encounter (statuses as of 06/02/2022) [facility] History of Past illness Narrative* Problem Noted Date Resolved Date Xerosis cutis 12/14/2012 01/02/2015 Pruritus 12/14/2012 01/02/2015 Actinic skin damage 12/14/2012 01/02/2015 Solar lentigo 12/14/2012 01/02/2015 Viral warts, unspecified 09/29/2010 015 Irritated//Inflamed Seborrheic Keratosis 010 01/02/2015 Follow-up examination, following unspecified dheeraj diane 06/11/2009 08/14/2009 ACTINIC DAMAGE///SOLAR SKIN DAMAGE NOS 8 01/02/2015 Dermatitis due to cosmetics 04/07/200812/11 ACTINIC DAMAGE///CHR SOLAR SKIN DAMAGE NOS 04/0701/02/2015 Other seborrheic keratosis 04/07/200801/02 SOLAR LENTIGINES///DYSCHROMIA OTHER 04/07/2008 01/02/2015 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 01/02/2015 Special screening for malignant neoplasms, colon 08/11/2005 01/02/2015 Follow-up examination following surgery 10/31/20 03 01/02/2015 documented as of this encounter (statuses as of 06/04/2022) [facility] History of Past illness Narrative* Problem Noted Date Resolved Date Xerosis cutis 12/14/2012 01/02/2015 Pruritus 12/14/2012 01/02/2015 Actinic skin damage 12/14/2012 01/02/2015 Solar lentigo 12/14/2012 01/02/2015 Viral warts, unspecified 09/29/2010 015 Irritated//Inflamed Seborrheic Keratosis 010 01/02/2015 Follow-up examination, following unspecified dheeraj diane 06/11/2009 08/14/2009 ACTINIC DAMAGE///SOLAR SKIN DAMAGE NOS 8 01/02/2015 Dermatitis due to cosmetics 04/07/200812/11 ACTINIC DAMAGE///CHR SOLAR SKIN DAMAGE NOS 04/0701/02/2015 Other seborrheic keratosis 04/07/200801/02 SOLAR LENTIGINES///DYSCHROMIA OTHER 04/07/2008 01/02/2015 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 01/02/2015 Special screening for malignant neoplasms, colon 08/11/2005 01/02/2015 Follow-up examination following surgery 10/31/20 03 01/02/2015 documented as of this encounter (statuses as of 06/05/2022) [facility] History of Past illness Narrative* Problem Noted Date Resolved Date Xerosis cutis 12/14/2012 01/02/2015 Pruritus 12/14/2012 01/02/2015 Actinic skin damage 12/14/2012 01/02/2015 Solar lentigo 12/14/2012 01/02/2015 Viral warts, unspecified 09/29/2010 015 Irritated//Inflamed Seborrheic Keratosis 010 01/02/2015 Follow-up examination, following unspecified dheeraj diane 06/11/2009 08/14/2009 ACTINIC DAMAGE///SOLAR SKIN DAMAGE NOS 8 01/02/2015 Dermatitis due to cosmetics 04/07/200812/11 ACTINIC DAMAGE///CHR SOLAR SKIN DAMAGE NOS 04/0701/02/2015 Other seborrheic keratosis 04/07/200801/02 SOLAR LENTIGINES///DYSCHROMIA OTHER 04/07/2008 01/02/2015 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 01/02/2015 Special screening for malignant neoplasms, colon 08/11/2005 01/02/2015 Follow-up examination following surgery 10/31/20 03 01/02/2015 documented as of this encounter (statuses as of 06/06/2022) [facility] History of Past illness Narrative* Problem Noted Date Resolved Date Xerosis cutis 12/14/2012 01/02/2015 Pruritus 12/14/2012 01/02/2015 Actinic skin damage 12/14/2012 01/02/2015 Solar lentigo 12/14/2012 01/02/2015 Viral warts, unspecified 09/29/2010 015 Irritated//Inflamed Seborrheic Keratosis 010 01/02/2015 Follow-up examination, following unspecified dheeraj diane 06/11/2009 08/14/2009 ACTINIC DAMAGE///SOLAR SKIN DAMAGE NOS 8 01/02/2015 Dermatitis due to cosmetics 04/07/200812/11 ACTINIC DAMAGE///CHR SOLAR SKIN DAMAGE NOS 04/0701/02/2015 Other seborrheic keratosis 04/07/200801/02 SOLAR LENTIGINES///DYSCHROMIA OTHER 04/07/2008 01/02/2015 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 01/02/2015 Special screening for malignant neoplasms, colon 08/11/2005 01/02/2015 Follow-up examination following surgery 10/31/20 03 01/02/2015 documented as of this encounter (statuses as of 06/10/2022) [facility] History of Past illness Narrative* Problem Noted Date Resolved Date Xerosis cutis 12/14/2012 01/02/2015 Pruritus 12/14/2012 01/02/2015 Actinic skin damage 12/14/2012 01/02/2015 Solar lentigo 12/14/2012 01/02/2015 Viral warts, unspecified 09/29/2010 015 Irritated//Inflamed Seborrheic Keratosis 010 01/02/2015 Follow-up examination, following unspecified dheeraj diane 06/11/2009 08/14/2009 ACTINIC DAMAGE///SOLAR SKIN DAMAGE NOS 8 01/02/2015 Dermatitis due to cosmetics 04/07/200812/11 ACTINIC DAMAGE///CHR SOLAR SKIN DAMAGE NOS 04/0701/02/2015 Other seborrheic keratosis 04/07/200801/02 SOLAR LENTIGINES///DYSCHROMIA OTHER 04/07/2008 01/02/2015 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 01/02/2015 Special screening for malignant neoplasms, colon 08/11/2005 01/02/2015 Follow-up examination following surgery 10/31/20 03 01/02/2015 documented as of this encounter (statuses as of 06/24/2022) [facility] History of Past illness Narrative* Problem Noted Date Resolved Date Xerosis cutis 12/14/2012 01/02/2015 Pruritus 12/14/2012 01/02/2015 Actinic skin damage 12/14/2012 01/02/2015 Solar lentigo 12/14/2012 01/02/2015 Viral warts, unspecified 09/29/2010 015 Irritated//Inflamed Seborrheic Keratosis 010 01/02/2015 Follow-up examination, following unspecified dheeraj diane 06/11/2009 08/14/2009 ACTINIC DAMAGE///SOLAR SKIN DAMAGE NOS 8 01/02/2015 Dermatitis due to cosmetics 04/07/200812/11 ACTINIC DAMAGE///CHR SOLAR SKIN DAMAGE NOS 04/0701/02/2015 Other seborrheic keratosis 04/07/200801/02 SOLAR LENTIGINES///DYSCHROMIA OTHER 04/07/2008 01/02/2015 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 01/02/2015 Special screening for malignant neoplasms, colon 08/11/2005 01/02/2015 Follow-up examination following surgery 10/31/20 03 01/02/2015 documented as of this encounter (statuses as of 07/03/2022) [facility] History of Past illness Narrative* Problem Noted Date Resolved Date Xerosis cutis 12/14/2012 01/02/2015 Pruritus 12/14/2012 01/02/2015 Actinic skin damage 12/14/2012 01/02/2015 Solar lentigo 12/14/2012 01/02/2015 Viral warts, unspecified 09/29/2010 015 Irritated//Inflamed Seborrheic Keratosis 010 01/02/2015 Follow-up examination, following unspecified dheeraj diane 06/11/2009 08/14/2009 ACTINIC DAMAGE///SOLAR SKIN DAMAGE NOS 8 01/02/2015 Dermatitis due to cosmetics 04/07/200812/11 ACTINIC DAMAGE///CHR SOLAR SKIN DAMAGE NOS 04/0701/02/2015 Other seborrheic keratosis 04/07/200801/02 SOLAR LENTIGINES///DYSCHROMIA OTHER 04/07/2008 01/02/2015 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 01/02/2015 Special screening for malignant neoplasms, colon 08/11/2005 01/02/2015 Follow-up examination following surgery 10/31/20 03 01/02/2015 documented as of this encounter (statuses as of 07/04/2022) [facility] History of Past illness Narrative* Problem Noted Date Resolved Date Xerosis cutis 12/14/2012 01/02/2015 Pruritus 12/14/2012 01/02/2015 Actinic skin damage 12/14/2012 01/02/2015 Solar lentigo 12/14/2012 01/02/2015 Viral warts, unspecified 09/29/2010 015 Irritated//Inflamed Seborrheic Keratosis 010 01/02/2015 Follow-up examination, following unspecified dheeraj diane 06/11/2009 08/14/2009 ACTINIC DAMAGE///SOLAR SKIN DAMAGE NOS 8 01/02/2015 Dermatitis due to cosmetics 04/07/200812/11 ACTINIC DAMAGE///CHR SOLAR SKIN DAMAGE NOS 04/0701/02/2015 Other seborrheic keratosis 04/07/200801/02 SOLAR LENTIGINES///DYSCHROMIA OTHER 04/07/2008 01/02/2015 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 01/02/2015 Special screening for malignant neoplasms, colon 08/11/2005 01/02/2015 Follow-up examination following surgery 10/31/20 03 01/02/2015 documented as of this encounter (statuses as of 07/09/2022) [facility] History of Past illness Narrative* Problem Noted Date Resolved Date Xerosis cutis 12/14/2012 01/02/2015 Pruritus 12/14/2012 01/02/2015 Actinic skin damage 12/14/2012 01/02/2015 Solar lentigo 12/14/2012 01/02/2015 Viral warts, unspecified 09/29/2010 015 Irritated//Inflamed Seborrheic Keratosis 010 01/02/2015 Follow-up examination, following unspecified dheeraj diane 06/11/2009 08/14/2009 ACTINIC DAMAGE///SOLAR SKIN DAMAGE NOS 8 01/02/2015 Dermatitis due to cosmetics 04/07/200812/11 ACTINIC DAMAGE///CHR SOLAR SKIN DAMAGE NOS 04/0701/02/2015 Other seborrheic keratosis 04/07/200801/02 SOLAR LENTIGINES///DYSCHROMIA OTHER 04/07/2008 01/02/2015 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 01/02/2015 Special screening for malignant neoplasms, colon 08/11/2005 01/02/2015 Follow-up examination following surgery 10/31/20 03 01/02/2015 documented as of this encounter (statuses as of 07/10/2022) [facility] History of Past illness Narrative* Problem Noted Date Resolved Date Xerosis cutis 12/14/2012 01/02/2015 Pruritus 12/14/2012 01/02/2015 Actinic skin damage 12/14/2012 01/02/2015 Solar lentigo 12/14/2012 01/02/2015 Viral warts, unspecified 09/29/2010 015 Irritated//Inflamed Seborrheic Keratosis 010 01/02/2015 Follow-up examination, following unspecified dheeraj diane 06/11/2009 08/14/2009 ACTINIC DAMAGE///SOLAR SKIN DAMAGE NOS 8 01/02/2015 Dermatitis due to cosmetics 04/07/200812/11 ACTINIC DAMAGE///CHR SOLAR SKIN DAMAGE NOS 04/0701/02/2015 Other seborrheic keratosis 04/07/200801/02 SOLAR LENTIGINES///DYSCHROMIA OTHER 04/07/2008 01/02/2015 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 01/02/2015 Special screening for malignant neoplasms, colon 08/11/2005 01/02/2015 Follow-up examination following surgery 10/31/20 03 01/02/2015 documented as of this encounter (statuses as of 07/11/2022) [facility] History of Past illness Narrative* Problem Noted Date Resolved Date Xerosis cutis 12/14/2012 01/02/2015 Pruritus 12/14/2012 01/02/2015 Actinic skin damage 12/14/2012 01/02/2015 Solar lentigo 12/14/2012 01/02/2015 Viral warts, unspecified 09/29/2010 015 Irritated//Inflamed Seborrheic Keratosis 010 01/02/2015 Follow-up examination, following unspecified dheeraj diane 06/11/2009 08/14/2009 ACTINIC DAMAGE///SOLAR SKIN DAMAGE NOS 8 01/02/2015 Dermatitis due to cosmetics 04/07/200812/11 ACTINIC DAMAGE///CHR SOLAR SKIN DAMAGE NOS 04/0701/02/2015 Other seborrheic keratosis 04/07/200801/02 SOLAR LENTIGINES///DYSCHROMIA OTHER 04/07/2008 01/02/2015 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 01/02/2015 Special screening for malignant neoplasms, colon 08/11/2005 01/02/2015 Follow-up examination following surgery 10/31/20 03 01/02/2015 documented as of this encounter (statuses as of 07/17/2022) [facility] History of Past illness Narrative* Problem Noted Date Resolved Date Xerosis cutis 12/14/2012 01/02/2015 Pruritus 12/14/2012 01/02/2015 Actinic skin damage 12/14/2012 01/02/2015 Solar lentigo 12/14/2012 01/02/2015 Viral warts, unspecified 09/29/2010 015 Irritated//Inflamed Seborrheic Keratosis 010 01/02/2015 Follow-up examination, following unspecified dheeraj diane 06/11/2009 08/14/2009 ACTINIC DAMAGE///SOLAR SKIN DAMAGE NOS 8 01/02/2015 Dermatitis due to cosmetics 04/07/200812/11 ACTINIC DAMAGE///CHR SOLAR SKIN DAMAGE NOS 04/0701/02/2015 Other seborrheic keratosis 04/07/200801/02 SOLAR LENTIGINES///DYSCHROMIA OTHER 04/07/2008 01/02/2015 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 01/02/2015 Special screening for malignant neoplasms, colon 08/11/2005 01/02/2015 Follow-up examination following surgery 10/31/20 03 01/02/2015 documented as of this encounter (statuses as of 07/22/2022) [facility] History of Past illness Narrative* Problem Noted Date Resolved Date Xerosis cutis 12/14/2012 01/02/2015 Pruritus 12/14/2012 01/02/2015 Actinic skin damage 12/14/2012 01/02/2015 Solar lentigo 12/14/2012 01/02/2015 Viral warts, unspecified 09/29/2010 015 Irritated//Inflamed Seborrheic Keratosis 010 01/02/2015 Follow-up examination, following unspecified dheeraj diane 06/11/2009 08/14/2009 ACTINIC DAMAGE///SOLAR SKIN DAMAGE NOS 8 01/02/2015 Dermatitis due to cosmetics 04/07/200812/11 ACTINIC DAMAGE///CHR SOLAR SKIN DAMAGE NOS 04/0701/02/2015 Other seborrheic keratosis 04/07/200801/02 SOLAR LENTIGINES///DYSCHROMIA OTHER 04/07/2008 01/02/2015 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 01/02/2015 Special screening for malignant neoplasms, colon 08/11/2005 01/02/2015 Follow-up examination following surgery 10/31/20 03 01/02/2015 documented as of this encounter (statuses as of 07/24/2022) [facility] History of Past illness Narrative* Problem Noted Date Resolved Date Xerosis cutis 12/14/2012 01/02/2015 Pruritus 12/14/2012 01/02/2015 Actinic skin damage 12/14/2012 01/02/2015 Solar lentigo 12/14/2012 01/02/2015 Viral warts, unspecified 09/29/2010 015 Irritated//Inflamed Seborrheic Keratosis 010 01/02/2015 Follow-up examination, following unspecified dheeraj diane 06/11/2009 08/14/2009 ACTINIC DAMAGE///SOLAR SKIN DAMAGE NOS 8 01/02/2015 Dermatitis due to cosmetics 04/07/200812/11 ACTINIC DAMAGE///CHR SOLAR SKIN DAMAGE NOS 04/0701/02/2015 Other seborrheic keratosis 04/07/200801/02 SOLAR LENTIGINES///DYSCHROMIA OTHER 04/07/2008 01/02/2015 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 01/02/2015 Special screening for malignant neoplasms, colon 08/11/2005 01/02/2015 Follow-up examination following surgery 10/31/20 03 01/02/2015 documented as of this encounter (statuses as of 07/25/2022) [facility] History of Past illness Narrative* Problem Noted Date Resolved Date Xerosis cutis 12/14/2012 01/02/2015 Pruritus 12/14/2012 01/02/2015 Actinic skin damage 12/14/2012 01/02/2015 Solar lentigo 12/14/2012 01/02/2015 Viral warts, unspecified 09/29/2010 015 Irritated//Inflamed Seborrheic Keratosis 010 01/02/2015 Follow-up examination, following unspecified dheeraj diane 06/11/2009 08/14/2009 ACTINIC DAMAGE///SOLAR SKIN DAMAGE NOS 8 01/02/2015 Dermatitis due to cosmetics 04/07/200812/11 ACTINIC DAMAGE///CHR SOLAR SKIN DAMAGE NOS 04/0701/02/2015 Other seborrheic keratosis 04/07/200801/02 SOLAR LENTIGINES///DYSCHROMIA OTHER 04/07/2008 01/02/2015 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 01/02/2015 Special screening for malignant neoplasms, colon 08/11/2005 01/02/2015 Follow-up examination following surgery 10/31/20 03 01/02/2015 documented as of this encounter (statuses as of 08/05/2022) [facility] History of Past illness Narrative* Problem Noted Date Resolved Date Xerosis cutis 12/14/2012 01/02/2015 Pruritus 12/14/2012 01/02/2015 Actinic skin damage 12/14/2012 01/02/2015 Solar lentigo 12/14/2012 01/02/2015 Viral warts, unspecified 09/29/2010 015 Irritated//Inflamed Seborrheic Keratosis 010 01/02/2015 Follow-up examination, following unspecified dheeraj diane 06/11/2009 08/14/2009 ACTINIC DAMAGE///SOLAR SKIN DAMAGE NOS 8 01/02/2015 Dermatitis due to cosmetics 04/07/200812/11 ACTINIC DAMAGE///CHR SOLAR SKIN DAMAGE NOS 04/0701/02/2015 Other seborrheic keratosis 04/07/200801/02 SOLAR LENTIGINES///DYSCHROMIA OTHER 04/07/2008 01/02/2015 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 01/02/2015 Special screening for malignant neoplasms, colon 08/11/2005 01/02/2015 Follow-up examination following surgery 10/31/2001/02/2015 documented as of this encounter (statuses as of 08/07/2022) [facility] History of Past illness Narrative* Problem Noted Date Resolved Date Xerosis cutis 12/14/2012 01/02/2015 Pruritus 12/14/2012 01/02/2015 Actinic skin damage 12/14/2012 01/02/2015 Solar lentigo 12/14/2012 01/02/2015 Viral warts, unspecified 09/29/2010 015 Irritated//Inflamed Seborrheic Keratosis 010 01/02/2015 Follow-up examination, following unspecified dheeraj diane 06/11/2009 08/14/2009 ACTINIC DAMAGE///SOLAR SKIN DAMAGE NOS 8 01/02/2015 Dermatitis due to cosmetics 04/07/200812/11 ACTINIC DAMAGE///CHR SOLAR SKIN DAMAGE NOS 04/0701/02/2015 Other seborrheic keratosis 04/07/200801/02 SOLAR LENTIGINES///DYSCHROMIA OTHER 04/07/2008 01/02/2015 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 01/02/2015 Special screening for malignant neoplasms, colon 08/11/2005 01/02/2015 Follow-up examination following surgery 10/31/20 03 01/02/2015 documented as of this encounter (statuses as of 08/14/2022) [facility] History of Past illness Narrative* Problem Noted Date Resolved Date Xerosis cutis 12/14/2012 01/02/2015 Pruritus 12/14/2012 01/02/2015 Actinic skin damage 12/14/2012 01/02/2015 Solar lentigo 12/14/2012 01/02/2015 Viral warts, unspecified 09/29/2010 015 Irritated//Inflamed Seborrheic Keratosis 010 01/02/2015 Follow-up examination, following unspecified dheeraj diane 06/11/2009 08/14/2009 ACTINIC DAMAGE///SOLAR SKIN DAMAGE NOS 8 01/02/2015 Dermatitis due to cosmetics 04/07/200812/11 ACTINIC DAMAGE///CHR SOLAR SKIN DAMAGE NOS 04/0701/02/2015 Other seborrheic keratosis 04/07/200801/02 SOLAR LENTIGINES///DYSCHROMIA OTHER 04/07/2008 01/02/2015 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 01/02/2015 Special screening for malignant neoplasms, colon 08/11/2005 01/02/2015 Follow-up examination following surgery 10/31/20 03 01/02/2015 documented as of this encounter (statuses as of 08/22/2022) [facility] Homer Marsh [facility] May 18, 2023 3:08pm Note Date/Time May 18, 2023 3:05 pm [facility] Medical Records Department [address] [place] [address] Consultation - Infectious Dx 05/18/23 1503 MR#: [id number] Acct: [id number] Name: SRINI LUIS Rep #:[id number] : 1935 87 From: Homer pablo MD PCP: Hamzah Pruitt Status:[facility] Assessment & Plan Assessment/Plan (1) Bacteremia due to Gram-negative bacteria: PLAN: 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 QTC here was 440. Thank you, will follow as needed, d/w Dr. Rebolledo HPI Consult Data Date of Consult: 05/18/23 HPI Narrative Reason for Consultation: bacteremia HPI Narrative: SRINI LUIS, is a 87 M who presented 05/14 with 2-3 days progressive RLE pain, redness, and swelling. Pain was moderate. No known inciting events. Developedassociated shaking chills and fever. Came to ED, admitted on broad spectrum abxincluding zosyn. Now feeling much better, leg less red/sore. No further fever. Full ROS performed and neg except as noted above. [facility] Medical History (Updated 05/18/23 @ 15:[address] Homer Marsh MD) Atheroembolism of foot Benign essential HTN Cerebral vascular accident (~08/2022) CMML (chronic myelomonocytic leukemia) Complete heart block Coronary artery disease (~09/2022) HLD (hyperlipidemia) Hypothyroidism Lumbar stenosis Myasthenia gravis Nocturnal hypoxemia Osteoarthritis Pacemaker (~09/2022) Home Medications aspirin 81 mg tablet,delayed release 81 mg PO DAILY 04/09/23 [History Last Taken 05/14/23] cholecalciferol (vitamin D3) 25 mcg (1,000 unit) tablet 25 mcg PO DAILY 04/09/23[History Last Taken 05/14/23] cyanocobalamin (vitamin B-12) 1,000 mcg capsule 1,000 mcg PO DAILY 04/09/23 [History Last Taken 05/14/23] furosemide 20 mg tablet (Lasix) 20 mg PO BID 04/09/23 [History Last Taken 05/14/23] levothyroxine 112 mcg tablet (Synthroid) 112 mcg PO DAILY 04/09/23 [History Last Taken 05/14/23] multivitamin 1 tab PO DAILY 04/09/23 [History Last Taken 05/14/23] polyethylene glycol 3350 17 gram oral powder packet 17 g PO DAILY PRN constipation 04/09/23 [History Last Taken Unknown] rivaroxaban 20 mg tablet (Xarelto) 20 mg PO QPM 04/09/23 [History Last Taken 05/13/23] atorvastatin 20 mg tablet 20 mg PO QHS 05/14/23 [History Last Taken 05/13/23] digoxin 125 mcg (0.125 mg) tablet 0.125 mg PO DAILY 05/14/23 [History Last Taken 05/14/23] metoprolol tartrate 25 mg tablet 12.5 mg PO BID 05/14/23 [History Last Taken 05/14/23] ferrous fumarate 325 mg (106 mg iron) tablet 325 mg PO DAILY 30 days #0 tabs 05/18/23 [Rx Last Taken 05/14/23] folic acid 1 mg tablet 1 mg PO BREAKFAST 30 days #30 tabs 05/18/23 [Rx Last Taken Unknown] levofloxacin 500 mg tablet 500 mg PO DAILY 6 days #6 tabs 05/18/23 [Rx Last Taken Unknown] polyethylene glycol 3350 17 gram oral powder packet 17 g PO DAILY 30 days #30 ea05/18/23 [Rx Last Taken Unknown] sennosides 8.6 mg-docusate sodium 50 mg tablet (Stool Softener-Stimulant Laxative) 2 tab PO BID PRN constipation 30 days #120 tabs 05/18/23 [Rx Last Taken Unknown] Allergy/AdvReac Type Severity Reaction Status Date / Time No Known Allergies Allergy Verified 05/14/23 12:20 Family History Mother Heart disease Father Heart disease Surgical History History of ankle surgery (~12/2020) History of arthroplasty of right shoulder (~2008) Hx of CABG (~07/2021) Social History Smoking Status: Former smoker how long ago did patient quit smokinyrs alcohol intake: current alcohol intake frequency: 0-2 drinks per day Alcohol type: beer, wine and hard liquor details: 1-2 beers per week substance use type: does not use Physical Exam Const alert, oriented x3 and no apparent distress General Appearance: cooperative HEENT normocephalic and head/scalp atraumatic Eyes PERRL and EOMs intact bilaterally Neck supple and No nodes Resp normal air movement and clear to auscultation bilaterally Cardio regular rate and regular rhythm GI soft to palpation, non-tender and non-distended Extremity General Extremity: edema Skin Skin Narrative: mild R lower leg redness Neuro CN's II-XII intact bilaterally Lab / Micro Data Attestation: I reviewed the patient's lab results. 05/18/23 05:31 05/18/23 05:31 Labs: Laboratory Results - last 24 hr 05/16/23 05:50: RBC Folate Hemolysate > 620.0, RBC Folate > 2322, Hematocrit 26.7 L 05/17/23 05:40: Vitamin B12 341 05/18/23 05:31: WBC 4.8, RBC 2.64 L, Hgb 8.7 L, Hct 27.2 L, MCV 103.0 H, MCH 33.0 H, MCHC 32.0, RDW Std Deviation 86.3 H, RDW Coeff of Luis Alberto 22.7 H, Plt Count 216, MPV 10.8, Immature Gran % (Auto) 1.900 H, Neut % (Auto) 80.3 H, Lymph % (Auto) 11.3 L, Weld % (Auto) 4.2, Eos % (Auto) 1.9, Baso % (Auto) 0.4, Absolute Neuts (auto) 3.9, Absolute Lymphs (auto) 0.54 L, Nucleated RBC % 0, Anisocytosis2+, Macrocytosis 2+, Sodium 136, Potassium 3.8, Chloride 103, Carbon Dioxide 30.0, Anion Gap 3 L, BUN 25 H, Creatinine 0.84, Estim Creat Clear Calc 57.92, Est GFR (MDRD) Af Amer 111, Est GFR (MDRD) Non-Af 92, BUN/Creatinine Ratio 29.8 H, Glucose 93, Calcium 8.2 L, Total Bilirubin 1.50 H, AST 21, ALT 51, Alkaline Phosphatase 134 H, Total Protein 5.2 L, Albumin 2.1 L, Globulin 3.1, Albumin/Globulin Ratio 0.7 L Rhythm Strip Rhythm Strip: vent pacing Rate: 60 Ectopy: None 05/18/23 2814 <Electronically signed by Homer Marsh MD> Cosigner Signature (if applicable): CC: Dr. Mary Prather MD; Dr. Homer Marsh MD; Hamzah rPuitt~ Signed [facility] Work Phone: Evaluation note* Diagnosis Chronic midline low back pain without sciatica- Primary Spinal stenosis of lumbar region with neurogenic claudication Spinal stenosis, lumbar region, with neurogenic claudication [facility] Spinal stenosis of lumbar region with neurogenic claudication Spinal stenosis, lumbar region, with neurogenic claudication [facility] Diagnosis Anemia, unspecified type- Primary Iron deficiency Iron deficiency anemia, unspecified Macrocytosis Other specified diseases of blood and blood-forming organs Restless legs syndrome with nocturnal myoclonus Restless legs syndrome (RLS) Spinal stenosis of lumbar region with neurogenic claudication Spinal stenosis, lumbar region, with neurogenic claudication Paroxysmal atrial fibrillation (HCC) Atrial fibrillation Hypothyroidism, unspecified type Hx of four vessel coronary artery bypass graft Personal history of surgery to heart and great vessels, presenting hazards to health Ankle edema, bilateral Mixed hyperlipidemia Essential hypertension, benign Constipation due to slow transit Slow transit constipation [facility] Diagnosis Chronic bilateral low back pain without sciatica- Primary Spinal stenosis of lumbar region with neurogenic claudication Spinal stenosis, lumbar region, with neurogenic claudication [facility] Diagnosis Leg swelling- Primary Swelling of limb Primary hypertension Unspecified essential hypertension [facility] Diagnosis Anemia, unspecified type- Primary [facility] Diagnosis Spinal stenosis of lumbar region with neurogenic claudication- Primary Spinal stenosis, lumbar region, with neurogenic claudication Chronic bilateral low back pain without sciatica [facility] Diagnosis Anemia, unspecified type- Primary Iron deficiency Iron deficiency anemia, unspecified [facility] Diagnosis Spinal stenosis of lumbar region with neurogenic claudication- Primary Spinal stenosis, lumbar region, with neurogenic claudication Chronic bilateral low back pain without sciatica [facility] Diagnosis Spinal stenosis of lumbar region with neurogenic claudication- Primary Spinal stenosis, lumbar region, with neurogenic claudication Chronic bilateral low back pain without sciatica [facility] Diagnosis Spinal stenosis of lumbar region with neurogenic claudication Spinal stenosis, lumbar region, with neurogenic claudication [facility] Diagnosis Pes anserine bursitis- Primary Pes anserinus tendinitis or bursitis Acute pain of right knee Primary insomnia Persistent disorder of initiating or maintaining sleep Spinal stenosis of lumbar region with neurogenic claudication Spinal stenosis, lumbar region, with neurogenic claudication Paroxysmal atrial fibrillation (HCC) Atrial fibrillation Essential hypertension, benign [facility] Diagnosis Pes anserine bursitis Pes anserinus tendinitis or bursitis Acute pain of right knee [facility] Diagnosis Benign hypertension- Primary Essential hypertension, benign 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 Mixed hyperlipidemia PAF (paroxysmal atrial fibrillation) (HCC) Atrial fibrillation USP current use of anticoagulants with INR goal of 2.0-3.0 Long-term (current) use of anticoagulants RBBB Right bundle branch block PVC's (premature ventricular contractions) Other premature beats [facility] Diagnosis Spinal stenosis of lumbar region with neurogenic claudication- Primary Spinal stenosis, lumbar region, with neurogenic claudication Arthropathy of lumbar facet joint Lumbosacral spondylosis without myelopathy [facility] Diagnosis Chronic heart failure with preserved ejection fraction (HCC)- Primary Spinal stenosis of lumbar region with neurogenic claudication Spinal stenosis, lumbar region, with neurogenic claudication Arthropathy of lumbar facet joint Lumbosacral spondylosis without myelopathy [facility] Diagnosis Spinal stenosis of lumbar region with neurogenic claudication- Primary Spinal stenosis, lumbar region, with neurogenic claudication Hypothyroidism, unspecified type Paroxysmal atrial fibrillation (HCC) Atrial fibrillation Essential hypertension, benign Anemia, unspecified type Iron deficiency Iron deficiency anemia, unspecified Primary hypertension Unspecified essential hypertension Restless legs syndrome with nocturnal myoclonus Restless legs syndrome (RLS) Hx of four vessel coronary artery bypass graft Personal history of surgery to heart and great vessels, presenting hazards to health Ankle edema, bilateral Constipation due to slow transit Slow transit constipation Mixed hyperlipidemia Immunization due Need for prophylactic vaccination and inoculation against unspecified single disease Vitamin D deficiency Unspecified vitamin D deficiency Pure hypercholesterolemia Spinal stenosis of lumbar region with neurogenic claudication Spinal stenosis, lumbar region, with neurogenic claudication Arthropathy of lumbar facet joint Lumbosacral spondylosis without myelopathy [facility] Diagnosis CHF (congestive heart failure), NYHA class I, acute on chronic, diastolic (HCC)- [facility] Diagnosis Cerebrovascular accident (CVA), unspecified mechanism (HCC)- Primary Primary hypertension Unspecified essential hypertension Atrial fibrillation, unspecified type (HCC) Current use of senior care anticoagulation Long-term (current) use of anticoagulants [facility]* Diagnosis 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HCC)- Primary Unspecified cerebral artery occlusion with cerebral infarction Right pontine stroke (HCC) Unspecified cerebral artery occlusion with cerebral infarction Numbness and tingling of left arm and leg Disturbance of skin sensation Paroxysmal atrial fibrillation (HCC) Atrial fibrillation Essential hypertension, benign Anemia, unspecified type Iron deficiency Iron deficiency anemia, unspecified Restless legs syndrome with nocturnal myoclonus Restless legs syndrome (RLS) Hx of four vessel coronary artery bypass graft Personal history of surgery to heart and great vessels, presenting hazards to health Ankle edema, bilateral Constipation due to slow transit Slow transit constipation Mixed hyperlipidemia Spinal stenosis of lumbar region with neurogenic claudication Spinal stenosis, lumbar region, with neurogenic claudication Hypothyroidism, unspecified type Abnormality of gait following cerebrovascular accident Other late effects of cerebrovascular disease [facility] Diagnosis Complete heart block (HCC)- Primary Atrioventricular block, complete Paroxysmal atrial fibrillation (HCC) Atrial fibrillation Hx of four vessel coronary artery bypass graft Personal history of surgery to heart and great vessels, presenting hazards to health Essential hypertension, benign Anemia, unspecified type Numbness and tingling of left arm and leg Disturbance of skin sensation Iron deficiency Iron deficiency anemia, unspecified Constipation due to slow transit Slow transit constipation Ankle edema, bilateral [facility]* Diagnosis Pacemaker- Primary Cardiac pacemaker in situ PAF (paroxysmal atrial fibrillation) ([facility] Atrial fibrillation [facility] Diagnosis Impending cerebrovascular accident (HCC)- Primary Unspecified transient cerebral ischemia Cerebral artery occlusion with cerebral infarction (HCC) Unspecified cerebral artery occlusion with cerebral infarction Numbness in cervical dermatome distribution Disturbance of skin sensation Paresthesia Disturbance of skin sensation [facility] Diagnosis Macrocytic anemia- Primary Unspecified deficiency anemia Macrocytic anemia Unspecified deficiency anemia [facility] Diagnosis Chronic heart failure with preserved ejection fraction (HCC) [I50.32 (ICD-10-CM)]- Primary Macrocytic anemia Unspecified deficiency anemia [facility] Diagnosis Macrocytic anemia Unspecified deficiency anemia [facility] Diagnosis Impending cerebrovascular accident (HCC)- Primary Unspecified transient cerebral ischemia Cerebral artery occlusion with cerebral infarction (HCC) Unspecified cerebral artery occlusion with cerebral infarction Paresthesia Disturbance of skin sensation [facility]* Diagnosis MDS (myelodysplastic syndrome) (HCC)- Primary Myelodysplastic syndrome, unspecified Macrocytic anemia Unspecified deficiency anemia [facility]* Diagnosis 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 Chronic myeloid leukemia, without mention of having achieved remission [facility] Diagnosis 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 Chronic myeloid leukemia, without mention of having achieved remission Other specified counseling 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) Chronic myeloid leukemia, without mention of having achieved remission [facility] Diagnosis Other myeloid 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)- Primary Malnutrition of moderate degree (HCC) Malnutrition of moderate degree Chronic heart failure with preserved ejection fraction (HCC) PAF (paroxysmal atrial fibrillation) (HCC) Atrial fibrillation Essential hypertension, benign Hx of four vessel coronary artery bypass graft Personal history of surgery to heart and great vessels, presenting hazards to health Numbness and tingling of left arm and leg Disturbance of skin sensation Constipation due to slow transit Slow transit constipation 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HCC) Unspecified cerebral artery occlusion with cerebral infarction Restless legs syndrome with nocturnal myoclonus Restless legs syndrome (RLS) Mixed hyperlipidemia Spinal stenosis of lumbar region with neurogenic claudication Spinal stenosis, lumbar region, with neurogenic claudication Hypothyroidism, unspecified type Iron deficiency Iron deficiency anemia, unspecified Vitamin D deficiency Unspecified vitamin D deficiency [facility] Diagnosis 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 Chronic myeloid leukemia, without mention of having achieved remission [facility] Diagnosis 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 Chronic myeloid leukemia, without mention of having achieved remission [facility] Diagnosis 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 Chronic myeloid leukemia, without mention of having achieved remission [facility] Diagnosis Hx of CABG- Primary Postsurgical aortocoronary bypass status Benign hypertension- Primary Essential hypertension, benign 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 Mixed hyperlipidemia PAF (paroxysmal atrial fibrillation) (HCC) Atrial fibrillation Pacemaker Cardiac pacemaker in situ CHB (complete heart block) (HCC) Atrioventricular block, complete 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 of anticoagulant Long-term (current) use of anticoagulants [facility] Diagnosis 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 Chronic myeloid leukemia, without mention of having achieved remission Benign hypertension- Primary Essential hypertension, benign 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 Mixed hyperlipidemia PAF (paroxysmal atrial fibrillation) (HCC) Atrial fibrillation Pacemaker Cardiac pacemaker in situ CHB (complete heart block) (HCC) Atrioventricular block, complete 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 of anticoagulant Long-term (current) use of anticoagulants [facility] 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 Chronic myeloid leukemia, without mention of having achieved remission [facility] Diagnosis Benign hypertension- Primary Essential hypertension, benign 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 Mixed hyperlipidemia PAF (paroxysmal atrial fibrillation) (HCC) Atrial fibrillation Pacemaker Cardiac pacemaker in situ CHB (complete heart block) (HCC) Atrioventricular block, complete USP current use of anticoagulant Long-term (current) use of anticoagulants [facility] Diagnosis 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 Chronic myeloid leukemia, without mention of having achieved remission Macrocytic anemia Unspecified deficiency anemia [facility] Diagnosis 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 Chronic myeloid leukemia, without mention of having achieved remission [facility] Diagnosis 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 Chronic myeloid leukemia, without mention of having achieved remission [facility] Diagnosis 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 Chronic myeloid leukemia, without mention of having achieved remission [facility] Diagnosis Encounter for care of pacemaker- [facility] 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 Chronic myeloid leukemia, without mention of having achieved remission Chemotherapy-induced neutropenia (HCC) Drug induced neutropenia Macrocytic anemia Unspecified deficiency anemia [facility] Diagnosis 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 Chronic myeloid leukemia, without mention of having achieved remission [facility] Diagnosis 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 Chronic myeloid leukemia, without mention of having achieved remission [facility] Diagnosis 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 Chronic myeloid leukemia, without mention of having achieved remission [facility] Diagnosis 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 Chronic myeloid leukemia, without mention of having achieved remission [facility] Diagnosis 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 Chronic myeloid leukemia, without mention of having achieved remission [facility] Diagnosis 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 Chronic myeloid leukemia, without mention of having achieved remission [facility] Diagnosis 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 Chronic myeloid leukemia, without mention of having achieved remission Chemotherapy-induced neutropenia (HCC) Drug induced neutropenia [facility] Diagnosis PAF (paroxysmal atrial fibrillation) (HCC)- Primary Atrial fibrillation MDS (myelodysplastic syndrome) (HCC) Myelodysplastic syndrome, unspecified Essential hypertension, benign Hypothyroidism, unspecified type Chronic heart failure with preserved ejection fraction (HCC) Constipation due to slow transit Slow transit constipation 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HCC) Unspecified cerebral artery occlusion with cerebral infarction Mixed hyperlipidemia Vitamin D deficiency Unspecified vitamin D deficiency [facility] Diagnosis 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 Chronic myeloid leukemia, without mention of having achieved remission [facility] Diagnosis Blue toes- Primary Cyanosis [facility] Diagnosis Traumatic ecchymosis of foot, right, initial encounter- Primary Bilateral calf pain Pain in limb Venous stasis of both lower extremities Diminished pulses in lower extremity Other symptoms involving cardiovascular system [facility] Diagnosis 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 Chronic myeloid leukemia, without mention of having achieved remission [facility] Diagnosis 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 Chronic myeloid leukemia, without mention of having achieved remission [facility] Diagnosis 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 Chronic myeloid leukemia, without mention of having achieved remission [facility] Diagnosis Unstable gait- Primary Abnormality of gait Postural dizziness Dizziness and giddiness Hypotension due to drugs Other iatrogenic hypotension Urinary incontinence, unspecified type Confusion and disorientation Diplopia Hypothyroidism, unspecified type Essential hypertension, benign PAF (paroxysmal atrial fibrillation) (HCC) Atrial fibrillation MDS (myelodysplastic syndrome) (HCC) Myelodysplastic syndrome, unspecified Venous stasis of both lower extremities 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HCC) Unspecified cerebral artery occlusion with cerebral infarction Vitamin D deficiency Unspecified vitamin D deficiency [facility] Diagnosis 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 Chronic myeloid leukemia, without mention of having achieved remission PAF (paroxysmal atrial fibrillation) (HCC)- Primary Atrial fibrillation [facility] Diagnosis 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 Chronic myeloid leukemia, without mention of having achieved remission PAF (paroxysmal atrial fibrillation) (HCC)- Primary Atrial fibrillation [facility] Diagnosis 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 Chronic myeloid leukemia, without mention of having achieved remission Arm swelling Swelling of limb [facility] Diagnosis Chronic heart failure with preserved ejection fraction (HCC)- Primary Essential hypertension, benign [facility] Diagnosis Need for hepatitis B booster vaccination- Primary Immunity status testing Antibody response examination [facility] Diagnosis 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 Chronic myeloid leukemia, without mention of having achieved remission [facility] Diagnosis MDS (myelodysplastic syndrome) (HCC)- Primary Myelodysplastic syndrome, unspecified DVT of axillary vein, 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 [facility] Diagnosis Onset Date Resolution Status Feared condition not demonstrated acute Acquired immunocompromised state acute Cellulitis of right lower leg acute Complete heart block acute Coronary artery disease 2021 acut e Hypoxemia acute Pacemaker 2021 acute Sepsis acute CMML (chronic myelomonocytic leukemia) [facility] Work Phone: Evaluation note* Diagnosis 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 Chronic myeloid leukemia, without mention of having achieved remission Right leg pain Pain in limb documented in this encounter [facility] note* Diagnosis Onset Date Resolution Status Feared condition not demonstrated acute Acquired immunocompromised state acute Bacteremia due to Gram-negative bacteria acute Cellulitis of right lower leg acute Complete heart block acute Coronary artery disease 2021 acut e Hypoxemia acute Pacemaker 2021 acute Sepsis acute CMML (chronic myelomonocytic leukemia) [facility] Work Phone: Evaluation note* Diagnosis Gram-negative bacteremia- Primary Bacteremia Cellulitis of right lower extremity Cellulitis and abscess of leg, except foot Acute on chronic diastolic congestive heart failure (HCC) Acute on chronic diastolic heart failure Venous stasis of both lower extremities PAF (paroxysmal atrial fibrillation) ([facility]) Atrial fibrillation Essential hypertension, benign 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) Chronic myeloid leukemia, without mention of having achieved remission Constipation due to slow transit Slow transit constipation 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 Acute deep vein thrombosis (DVT) of non-extremity vein documented in this encounter [facility] note* Diagnosis Lymphedema of both lower extremities- Primary Chronic heart failure with preserved ejection fraction (HCC) PAF (paroxysmal atrial fibrillation) (HCC) Atrial fibrillation 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) Chronic myeloid leukemia, without mention of having achieved remission History of bacteremia Personal history of other infectious and parasitic disease Generalized osteoarthrosis Generalized osteoarthrosis, unspecified site documented in this encounter [facility] note* Diagnosis Onset Date Resolution Status Feared condition not demonstrated acute Acquired immunocompromised state acute Bacteremia due to Gram-negative bacteria acute Coronary artery disease 2021 acut e Hypoxemia acute Pacemaker 2021 acute Sepsis acute CMML (chronic myelomonocytic leukemia) chronic Cellulitis of right lower leg resolved [facility] Work Phone: Evaluation note* Diagnosis Chronic atrial fibrillation (HCC)- Primary Atrial fibrillation Benign hypertension Essential hypertension, benign 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 Mixed hyperlipidemia USP current use of anticoagulant Long-term (current) use of anticoagulants Pacemaker Cardiac pacemaker in situ CHB (complete heart block) (HCC) Atrioventricular block, complete PVC's (premature ventricular contractions) Other premature beats [facility] Encounter for care of pacemaker- Primary [facility] Diagnosis Lymphedema of both lower extremities- Primary Chronic heart failure with preserved ejection fraction (HCC) Encounter for immunization Need for other specified prophylactic vaccination against single bacterial disease [facility] Diagnosis Lymphedema of both lower extremities Chronic heart failure with preserved ejection fraction (HCC) [facility] Acute [facility] Diagnosis Unstable gait Abnormality of gait Postural dizziness Dizziness and giddiness Confusion and disorientation Diplopia [facility] Diagnosis 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 Chronic myeloid leukemia, without mention of having achieved remission MDS (myelodysplastic syndrome) (HCC) Myelodysplastic syndrome, unspecified [facility] Diagnosis Lymphedema of both lower extremities Chronic heart failure with preserved ejection fraction (HCC) [facility] Diagnosis Lymphedema of both lower extremities Chronic heart failure with preserved ejection fraction (HCC) Hypothyroidism, unspecified type [facility] Diagnosis Right elbow pain- Primary Pain in joint, upper arm Monoarthritis of elbow, right [facility] Diagnosis 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 Chronic myeloid leukemia, without mention of having achieved remission MDS (myelodysplastic syndrome) (HCC) Myelodysplastic syndrome, unspecified [facility] Diagnosis 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 Chronic myeloid leukemia, without mention of having achieved remission Macrocytic anemia Unspecified deficiency anemia [facility] Diagnosis Medicare annual wellness visit, subsequent- Primary Routine general medical examination at a health care facility Mixed hyperlipidemia Lymphedema of both lower extremities Chronic heart failure with preserved ejection fraction (HCC) Hypothyroidism, unspecified type Primary hypertension Unspecified essential hypertension B12 deficiency Other B-complex deficiencies Vitamin D deficiency Unspecified vitamin D deficiency [facility]* Diagnosis Hypothyroidism, unspecified type- Primary Benign hypertension- Primary Essential hypertension, benign 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 Mixed hyperlipidemia Pacemaker Cardiac pacemaker in situ CHB (complete heart block) (HCC) Atrioventricular block, complete Chronic atrial fibrillation (HCC) Atrial fibrillation USP current use of anticoagulant Long-term (current) use of anticoagulants [facility] Diagnosis Benign hypertension- Primary Essential hypertension, benign 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 Mixed hyperlipidemia Pacemaker Cardiac pacemaker in situ CHB (complete heart block) (HCC) Atrioventricular block, complete Chronic atrial fibrillation (HCC) Atrial fibrillation 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 of anticoagulant Long-term (current) use of anticoagulants [facility] Diagnosis Encounter for care of pacemaker- Primary [facility]* Diagnosis 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 Chronic myeloid leukemia, without mention of having achieved remission Macrocytic anemia Unspecified deficiency anemia [facility]* Diagnosis 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 Chronic myeloid leukemia, without mention of having achieved remission [facility]* Diagnosis 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 Chronic myeloid leukemia, without mention of having achieved remission [facility]* Diagnosis Encounter for care of pacemaker- Primary [facility]* Diagnosis Chronic heart failure with preserved ejection fraction (HCC) [facility]* Diagnosis Right elbow pain Pain in joint, upper arm Monoarthritis of elbow, right [facility]* Diagnosis Benign hypertension- Primary Essential hypertension, benign Screening for depression Encounter for screening examination for other mental health and behavioral disorders Mixed hyperlipidemia Hypothyroidism, unspecified type Lymphedema of both lower extremities Chronic atrial fibrillation (HCC) Atrial fibrillation Myasthenia gravis (HCC) Myasthenia gravis without exacerbation Chronic heart failure with preserved ejection fraction (HCC) Viral URI Acute upper respiratory infections of unspecified site Restless leg syndrome Restless legs syndrome (RLS) Pleural rub Abnormal chest sounds [facility] Diagnosis 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 Chronic myeloid leukemia, without mention of having achieved remission History of anemia Personal history of diseases of blood and blood-forming organs [facility] Diagnosis Benign hypertension- Primary Essential hypertension, benign 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 Mixed hyperlipidemia Pacemaker Cardiac pacemaker in situ CHB (complete heart block) (HCC) Atrioventricular block, complete Chronic atrial fibrillation (HCC) Atrial fibrillation 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 of anticoagulant Long-term (current) use of anticoagulants 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) MDS (myelodysplastic syndrome) (HCC) Myelodysplastic syndrome, unspecified Myasthenia gravis (HCC) Myasthenia gravis without exacerbation Vertebral artery occlusion, left Venous stasis of both lower extremities 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 appendage PVC's (premature ventricular contractions) Other premature beats Encounter for screening for cardiovascular disorders Screening for other and unspecified cardiovascular conditions SOB (shortness of breath) Shortness of breath [facility] Diagnosis Encounter for care of pacemaker- Primary [facility] Diagnosis Chronic atrial fibrillation (HCC)- Primary Atrial fibrillation [facility] Diagnosis 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 Chronic myeloid leukemia, without mention of having achieved remission Macrocytic anemia Unspecified deficiency anemia [facility] Diagnosis 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) Chronic myeloid leukemia, without mention of having achieved remission MDS (myelodysplastic syndrome) (HCC) Myelodysplastic syndrome, unspecified [facility] Diagnosis 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) Chronic myeloid leukemia, without mention of having achieved remission MDS (myelodysplastic syndrome) (HCC) Myelodysplastic syndrome, unspecified [facility] Diagnosis 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) Chronic myeloid leukemia, without mention of having achieved remission MDS (myelodysplastic syndrome) (HCC) Myelodysplastic syndrome, unspecified [facility]* Diagnosis Mixed hyperlipidemia Hypothyroidism, unspecified type [facility]* Diagnosis 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) Chronic myeloid leukemia, without mention of having achieved remission MDS (myelodysplastic syndrome) (HCC) Myelodysplastic syndrome, unspecified [facility]* Diagnosis 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 Chronic myeloid leukemia, without mention of having achieved remission 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 [facility] Diagnosis Encounter for care of pacemaker- Primary [facility] Diagnosis 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) Chronic myeloid leukemia, without mention of having achieved remission MDS (myelodysplastic syndrome) (HCC) Myelodysplastic syndrome, unspecified [facility]* Diagnosis Medicare annual wellness visit, subsequent- Primary Routine general medical examination at a health care facility Lymphedema of both lower extremities Chronic heart failure with preserved ejection fraction (HCC) Primary hypertension Unspecified essential hypertension Hypothyroidism, unspecified type Constipation due to slow transit Slow transit constipation [facility]* Diagnosis 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) Chronic myeloid leukemia, without mention of having achieved remission MDS (myelodysplastic syndrome) (HCC) Myelodysplastic syndrome, unspecified [facility]* Diagnosis 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) Chronic myeloid leukemia, without mention of having achieved remission MDS (myelodysplastic syndrome) (HCC) Myelodysplastic syndrome, unspecified [facility]* Diagnosis 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) Chronic myeloid leukemia, without mention of having achieved remission MDS (myelodysplastic syndrome) (HCC) Myelodysplastic syndrome, unspecified [facility] Diagnosis Lymphedema of right lower extremity- Primary Lymphedema of both lower extremities Pacemaker reprogramming/check Fitting and adjustment of cardiac pacemaker Benign hypertension- Primary Essential hypertension, benign 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 Mixed hyperlipidemia Pacemaker Cardiac pacemaker in situ CHB (complete heart block) (HCC) Atrioventricular block, complete Chronic atrial fibrillation (HCC) Atrial fibrillation USP current use of anticoagulant Long-term (current) use of anticoagulants [facility] Diagnosis Lymphedema of right lower extremity- Primary Pacemaker reprogramming/check Fitting and adjustment of cardiac pacemaker Benign hypertension- Primary Essential hypertension, benign 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 Mixed hyperlipidemia Pacemaker Cardiac pacemaker in situ CHB (complete heart block) (HCC) Atrioventricular block, complete Chronic atrial fibrillation (HCC) Atrial fibrillation USP current use of anticoagulant Long-term (current) use of anticoagulants [facility] Diagnosis Benign hypertension- Primary Essential hypertension, benign 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 Mixed hyperlipidemia Pacemaker Cardiac pacemaker in situ CHB (complete heart block) (HCC) Atrioventricular block, complete Chronic atrial fibrillation (HCC) Atrial fibrillation USP current use of anticoagulant Long-term (current) use of anticoagulants Pacemaker reprogramming/check Fitting and adjustment of cardiac pacemaker [facility] Diagnosis 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 Pacemaker reprogramming/check Fitting and adjustment of cardiac pacemaker [facility] Diagnosis 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) Chronic myeloid leukemia, without mention of having achieved remission MDS (myelodysplastic syndrome) (HCC) Myelodysplastic syndrome, unspecified Pacemaker reprogramming/check Fitting and adjustment of cardiac pacemaker [facility] Diagnosis Lymphedema of right lower extremity Pacemaker reprogramming/check Fitting and adjustment of cardiac pacemaker [facility] Diagnosis 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) Chronic myeloid leukemia, without mention of having achieved remission MDS (myelodysplastic syndrome) (HCC) Myelodysplastic syndrome, unspecified Pacemaker reprogramming/check Fitting and adjustment of cardiac pacemaker [facility] Diagnosis Multiple skin tears- Primary Open wound(s) (multiple) of unspecified site(s), without mention of complication USP (current) use of anticoagulants Long-term (current) use of anticoagulants Pacemaker reprogramming/check Fitting and adjustment of cardiac pacemaker [facility] Diagnosis 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) Chronic myeloid leukemia, without mention of having achieved remission MDS (myelodysplastic syndrome) (HCC) Myelodysplastic syndrome, unspecified Pacemaker reprogramming/check Fitting and adjustment of cardiac pacemaker [facility] Diagnosis Cellulitis of left upper arm- Primary Multiple skin tears Open wound(s) (multiple) of unspecified site(s), without mention of complication 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 (current) use of anticoagulants Long-term (current) use of anticoagulants Pacemaker reprogramming/check Fitting and adjustment of cardiac pacemaker [facility] Diagnosis Cellulitis of left upper arm- Primary Multiple skin tears Open wound(s) (multiple) of unspecified site(s), without mention of complication Lymphedema of both lower extremities Chronic heart failure with preserved ejection fraction (HCC) Pacemaker reprogramming/check Fitting and adjustment of cardiac pacemaker [facility] Diagnosis 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) Chronic myeloid leukemia, without mention of having achieved remission MDS (myelodysplastic syndrome) (HCC) Myelodysplastic syndrome, unspecified Pacemaker reprogramming/check Fitting and adjustment of cardiac pacemaker [facility] Author Mary Prather [facility] May 14, 2023 5:26pm Note Date/Time May 14, 2023 4:54p m [facility] Medical Records Department [address] [place] [address] H&P Exam - Hospitalist 05/14/23 1647 MR#: [id number] Acct: [id number] Name: SRINI LUIS Rep #:[id number] : 1935 87 From: Mary Prather MD PCP: Hamzah Pruitt Status:ADM IN Location: [facility] [id number] HPI - General General Date of Admission: 05/14/23 Date of Service: 05/14/23 Chief Complaint: Chills, RLE pain HPI Narrative Mr. Luis is an 87-year-old male with history of CVA, CMML on chemotherapy [facility] due to weakness and rigors. Inthe ED he was found to have a temperature of 103.5 and was given Tylenol and this improved and he felt much better. Was noted to have bilateral lower extremity swelling right greater than left and was scheduled to get an outpatient DVT scan in the next 1 to 2 days so this was performed in the ED and no new DVT noted and it was presumed that this was cellulitis and likely source of his infection. White blood cell count 7.0 with 89.7% neutrophils, hemoglobin9.3 with no baseline available, creatinine 1.17 also with no baseline available and lactic 3.8. He did have 83% O2 sat on room air so chest x-ray obtained and chest x-ray did have findings suggestive of fluid overload and he had a BNP of 972 however given concerns for sepsis and his blood pressure soft he was given 2L of IVF and no Lasix especially given his O2 sat increased to 98% on 2 L. Hospitalist consulted for admission. Patient evaluated with family at bedside. He reports that his right leg has been aching and hurting for the past 2 days but this morning was bothering him more and he also felt the chills and weaknessprompting him to come to the emergency department because he was worried he had a blood clot as he just had a chronic Mediport that has been in his right upper arm removed several days ago due to thrombus information there and has had some weeping of serosanguineous fluid from there but no pus. He said both of his lower extremities always stays swollen and he takes Lasix 3 times a day at home for this and subsequently has to urinate most hours of the night. Denies feversnoted before this day, does note that his skin will spontaneously tear open and he will get bleeding or wounds on his legs and does have a Band-Aid over 1 on his right trevizo. Denies this happening before. Denies any weight changes, denies any chest pain or shortness of breath and denies any consistent coughing. No other complaints at this time [facility] Medical History (Updated 05/14/23 @ 17:[address] Mary Prather MD) Atheroembolism of foot Benign essential HTN Cerebral vascular accident (~08/2022) CMML (chronic myelomonocytic leukemia) Complete heart block Coronary artery disease (~09/2022) HLD (hyperlipidemia) Hypothyroidism Lumbar stenosis Myasthenia gravis Nocturnal hypoxemia Osteoarthritis Pacemaker (~09/2022) Home Medications aspirin 81 mg tablet,delayed release 81 mg PO DAILY 04/09/23 [History Last Taken 05/14/23] cholecalciferol (vitamin D3) 25 mcg (1,000 unit) tablet 25 mcg PO DAILY 04/09/23[History Last Taken 05/14/23] cyanocobalamin (vitamin B-12) 1,000 mcg capsule 1,000 mcg PO DAILY 04/09/23 [History Last Taken 05/14/23] ferrous fumarate 325 mg (106 mg iron) tablet 325 mg PO TIDCM 04/09/23 [History Last Taken 05/14/23] furosemide 20 mg tablet (Lasix) 20 mg PO BID 04/09/23 [History Last Taken 05/14/23] levothyroxine 112 mcg tablet (Synthroid) 112 mcg PO DAILY 04/09/23 [History Last Taken 05/14/23] multivitamin 1 tab PO DAILY 04/09/23 [History Last Taken 05/14/23] polyethylene glycol 3350 17 gram oral powder packet 17 g PO DAILY PRN constipation 04/09/23 [History Last Taken Unknown] rivaroxaban 20 mg tablet (Xarelto) 20 mg PO QPM 04/09/23 [History Last Taken 05/13/23] atorvastatin 20 mg tablet 20 mg PO QHS 05/14/23 [History Last Taken 05/13/23] digoxin 125 mcg (0.125 mg) tablet 0.125 mg PO DAILY 05/14/23 [History Last Taken 05/14/23] metoprolol tartrate 25 mg tablet 12.5 mg PO BID 05/14/23 [History Last Taken 05/14/23] Allergy/AdvReac Type Severity Reaction Status Date / Time No Known Allergies Allergy Verified 05/14/23 12:20 Family History Mother Heart disease Father Heart disease Surgical History History of ankle surgery (~12/2020) History of arthroplasty of right shoulder (~2008) Hx of CABG (~07/2021) Social History Smoking Status: Former smoker how long ago did patient quit smokinyrs alcohol intake: current alcohol intake frequency: 0-2 drinks per day Alcohol type: beer, wine and hard liquor details: 1-2 beers per week substance use type: does not use ROS ROS Narrative General: Fever HENT: Denies headache, denies stuffy nose, denies sore throat EYES: Denies changes in vision Resp: Denies consistent cough, denies shortness of breath Cardiac: Denies chest pain GI: Denies abdominal pain, denies changes in bowel, denies nausea/vomiting : Denies changes in urination Extremity: chronic BLE swelling, RLE redness > left MSK: Gen weakness Neuro: Denies any numbness/tingling Heme: Easy bleeding and skin tears, occasional weeping in legs Skin: RLE redness Psychiatric: No complaints voiced Vital Signs Vital Signs Vital Signs: 05/14/23 12:15 05/14/23 12:18 05/14/23 12:21 Temperature 103.5 F H Temperature Source Temporal Pulse Rate 115 H 73 Respiratory Rate 22 H 18 Respiratory Effort Normal Non-Labored Respiratory Pattern Normal Blood Pressure 126/99 H Blood Pressure Mean 108 Pulse Ox 83 95 Oxygen Delivery Method Room Air Nasal Cannula Oxygen Flow Rate (L/min) 3 05/14/23 12:22 05/14/23 12:54 05/14/23 14:44 Temperature 99.2 F H Temperature Source Oral Pulse Rate 60 Respiratory Rate 14 Respiratory Effort Respiratory Pattern Blood Pressure 94/51 L Blood Pressure Mean 65 Pulse Ox 98 98 Oxygen Delivery Method Nasal Cannula Nasal Cannula Nasal Cannula Oxygen Flow Rate (L/min) 3 2 05/14/23 16:25 Temperature 99.2 F H Temperature Source Oral Pulse Rate 60 Respiratory Rate 16 Respiratory Effort Respiratory Pattern Blood Pressure 112/59 L Blood Pressure Mean 76 Pulse Ox 98 Oxygen Delivery Method Nasal Cannula Oxygen Flow Rate (L/min) 2 Weight Weight: 81.4 kg Body Mass Index (BMI) 28.0 Physical Exam Narrative General: Alert, oriented, no apparent distress HEENT: Atraumatic, normocephalic Eyes: Anicteric, normal conjunctiva, extraocular movements grossly intact Neck: Supple Respiratory: Somewhat diminished bilaterally, normal respiratory effort Cardiovascular: Regular rate and rhythm GI: Soft, nontender, nondistended Extremities: 2-3+ bilateral lower extremity edema Musculoskeletal: Moving all extremities Neuro: No overt focal neurological deficits Skin: Right arm wrapped where sutures are, right trevizo with abrasion and erythema Psych: Cooperative Results Lab / Micro Data 05/14/23 12:55 05/14/23 12:55 Labs: Laboratory Results - last 24 hr 05/14/23 12:55: WBC 7.0, RBC 2.84 L, Hgb 9.3 L, Hct 29.3 L, MCV 103.2 H, MCH 32.7 H, MCHC 31.7 L, RDW Std Deviation 83.3 H, RDW Coeff of Luis Alberto 22.2 H, Plt Count 399, MPV 10.7, Immature Gran % (Auto) 1.600 H, Neut % (Auto) 89.7 H, Lymph% (Auto) 5.6 L, Weld % (Auto) 2.7, Eos % (Auto) 0.0, Baso % (Auto) 0.4, AbsoluteNeuts (auto) 6.2, Absolute Lymphs (auto) 0.39 L, Nucleated RBC % 0.4, Differential Comment SCANNED, Polychromasia RARE, Anisocytosis 2+, Macrocytosis 1+, PT 18.6 H, INR 1.5, APTT 30.3, Sodium 136, Potassium 4.5, Chloride 96 L, Carbon Dioxide 35.0 H, Anion Gap 5, BUN 31 H, Creatinine 1.17, Estim Creat ClearCalc 41.59, Est GFR (MDRD) Af Amer 76, Est GFR (MDRD) Non-Af 63, BUN/Creatinine Ratio 26.5 H, Glucose 252 H, Lactic Acid 3.8 H*, Calcium 8.4 L, Total Bilirubin 1.20 H, AST 20, ALT 51, Alkaline Phosphatase 92, Troponin I High Sens 111 H, B-Natriuretic Peptide 972.1 H, Total Protein 5.4 L, Albumin 2.7 L, Globulin 2.7, Albumin/Globulin Ratio 1.0 Rhythm Strip Rhythm Strip: vent pacing Rate: 60 Ectopy: None Radiology Impression Chest X-Ray 05/14/23 13:34 IMPRESSION: Poor inspiratory effort. Findings in keeping with CHF. Electronically Signed: Demetri Castillo MD at 13:59 EDT , Assessment & Plan Assessment/Plan (1) Sepsis: (2) Hypoxemia: (3) CMML (chronic myelomonocytic leukemia): (4) Cellulitis of right lower leg: (5) Complete heart block: (6) Pacemaker: (7) Coronary artery disease: PLAN: Plan #Sepsis 2/2 likely RLE cellulitis -Per verbal checkout from ED physician pt had SBP in the 80's and lactic acid resulted at 3.8 with left shift on WBC and likely source of RLE -Preliminary results of right lower extremity negative for DVT, presumably cellulitis -Bld cx -2L IVF ordered and BP improved, not given further fluids d/t concomitant concern for fluid overload -Broad spectrum abx -Trend lactic #Acute hypoxia -Unclear etiology, there is unclear if it was fluid overload based on BNP of 972and chest x-ray appeared congested with lower extremity edema however he improved with antibiotics, fluids and 2 L of O2 -Chest x-ray was poor inspiration -We will obtain echocardiogram -I's and O's, daily weights #Elevated lactic acid -as above #History of coronary artery disease/pacemaker -CABG x4 2 years ago -Pacemaker last fall -Continue statin and aspirin #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 -No baseline, unclear if this is elevated for him however BUN was somewhat up 31 -Trend BMP -Patient received IVF #Microcytic anemia -Unclear baseline, monitor for signs or symptoms of bleeding -Continue oral iron supplementation -Daily CBC #Hypothyroidism -Continue Synthroid #DVT ppx: Sonjarelto Mary Prather MD Time spent in the patient's overall evaluation,decision-making process, review of diagnostic data, adjustment of management, discussion with other providers, nursing nursing and ancillary staff involved in patient's care documentation, 76Minutes Sepsis Attestation Sepsis Alert: Yes Sepsis Attestation: Agree w/Sepsis Date exam was performed: 05/14/23 Time exam was performed: 04:20 Possible Source of Sepsis: Skin/soft tissue Sepsis Organ Dysfunction Criteria Present: SBP < 90 mmHg or MAP < 65 mmHg and Lactic Acid > 2 mmol/L Fluid Resuscitation Fluid resuscitation indicated?: Yes Fluid Resuscitation ordered: Lesser volume fluid bolus ordered Amount of fluid ordered: 2,000 Reason for lesser fluid bolus:: Concern for fluid overload Charges/Coding Visit Charges Inpatient E&M: 62550 Init Hosp L3 05/14/23 1726 <Electronically signed by Mary Prather MD> Cosigner Signature (if applicable): CC: Dr. Mary Prather MD; Hamzah Pruitt~ Signed [facility] Work Phone: Reason for referral (narrative)* Diagnostic Procedure Only (Routine) - Closed Specialty Diagnoses / Procedures Referred By Contac t Referred To Contact XR IMAGING Diagnoses Spinal stenosis of lumbar region with neurogenic claudication Procedures XR LUMBAR MOTION 4V AP/LAT/ FLEX/EXT RADEX SPINE LUMBOSACRAL MINIMUM 4 VIEWS Laron Fortune PA-C [address] [place] [address] Xr Imaging Referral ID Status Reason Start Date Expiration Date V isits Requested Visits Authorized [id number] Closed Auto-Generate d Referral 02/28/2022 03/30/2023 1 1 [facility] for referral (narrative)* Diagnostic Procedure Only (Routine) - Pending Review Specialty Diagnoses / Procedures Referred By Contac t Referred To Contact XR IMAGING Diagnoses Pes anserine bursitis Acute pain of right knee Procedures XR KNEE LIMITED 2V AP/LAT RIGHT RADIOLOGIC EXAMINATION KNEE 1/2 VIEWS Israel Pruitt DO [address] [place] [address] Xr Imaging Referral ID Status Reason Start Date Expiration Date Visits Requested Visits Authorized [id number] Pending Review Auto-Generat ed Referral 05/29/2022 06/28/2023 1 1 * Physical Therapy (Routine) - Pending Review Specialty Diagnoses / Procedures Referred By Contac t Referred To Contact [facility] Diagnoses Pes anserine bursitis Acute pain of right knee Spinal stenosis of lumbar region with neurogenic claudication Procedures CONSULT TO PHYSICAL THERAPY PHYSICAL THERAPY EVALUATION HIGH COMPLEX 45 MINS Israel Pruitt DO [address] [place] [address] [facility] [place] [address] [place] [id number] Referral ID Status Reason Start Date Expiration Date Visits Requested Visits Authorized [id number] Pending Review Auto-Generat ed Referral 05/29/2022 05/29/2023 1 1 [facility] for referral (narrative)* Diagnostic Procedure Only (Routine) - Closed Specialty Diagnoses / Procedures Referred By Contac t Referred To Contact XR IMAGING Diagnoses Pes anserine bursitis Acute pain of right knee Procedures XR KNEE LIMITED 2V AP/LAT RIGHT RADIOLOGIC EXAMINATION KNEE 1/2 VIEWS Israel Pruitt DO [address] [place] [address] Xr Imaging Referral ID Status Reason Start Date Expiration Date V isits Requested Visits Authorized [id number] Closed Auto-Generate d Referral 05/29/2022 06/28/2023 1 1 [facility] for referral (narrative)* Outpatient Procedure (Routine) - Closed Specialty Diagnoses / Procedures Referred By Contac t Referred To Contact [facility] [place] Diagnoses Benign hypertension Procedures ECG COMPLETE ECG ROUTINE ECG W/LEAST 12 LDS W/I&R Iram Johnson, MANAGER DAIRY.[employer] SALES REPRESENTATIVE [address] [facility] [address] [place] [address] [facility] [place] [address] [place] [address] Referral ID Status Reason Start Date Expiration Date V isits Requested Visits Authorized [id number] Closed Auto-Generate d Referral 06/06/2022 06/06/2023 1 1 [facility] for referral (narrative)* Diagnostic Procedure Only (Urgent) - Closed Specialty Diagnoses / Procedures Referred By Contac t Referred To Contact US IMAGING Diagnoses Traumatic ecchymosis of foot, right, initial encounter Bilateral calf pain Venous stasis of both lower extremities Procedures US DVT LOWER BILATERAL DUP-SCAN XTR VEINS COMPLETE BILATERAL STUDY Israel Pruitt DO [address] [place] [address] Us Imaging Referral ID Status Reason Start Date Expiration Date V isits Requested Visits Authorized [id number] Closed Auto-Generate d Referral 03/25/2023 04/23/2024 1 1 [facility] for referral (narrative)* Outpatient Procedure (Urgent) - Pending Review Specialty Diagnoses / Procedures Referred By Contac t Referred To Contact [facility] Diagnoses 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) Arm swelling Procedures US ARM VEIN DVT UNL VAS LAB DUP-SCAN XTR VEINS UNILATERAL/LIMITED STUDY Baljinder Galloway DO [address] [place] [address] [facility] [place] [address] [place] [address] Referral ID Status Reason Start Date Expiration Date Visits Requested Visits Authorized [id number] Pending Review Auto-Generat ed Referral 05/05/2023 05/04/2024 1 1 [facility] for referral (narrative)* Diagnostic Procedure Only (Urgent) - Authorized Specialty Diagnoses / Procedures Referred By Contac t Referred To Contact US IMAGING Diagnoses Right leg pain Procedures US DVT LOWER RIGHT DUP-SCAN XTR VEINS UNILATERAL/LIMITED STUDY Israel Gates MD [address] [place] [address] Us Imaging Referral ID Status Reason Start Date Expiration Date Visits Requested Visits Authorized [id number] Authorized Auto-Generat ed Referral 05/14/2023 06/12/2024 1 1 [facility] for referral (narrative)* Diagnostic Procedure Only (Routine) - Closed Specialty Diagnoses / Procedures Referred By Contac t Referred To Contact XR IMAGING Diagnoses Right elbow pain Monoarthritis of elbow, right Procedures XR ELBOW SPECIAL VIEWS AP/LAT/OTHER RIGHT RADEX ELBOW COMPLETE MINIMUM 3 VIEWS Ronaldo Pleitez MD [address] [place] [address] [place] [id number] Referral ID Status Reason Start Date Expiration Date V isits Requested Visits Authorized [id number] Closed Auto-Generate d Referral 12/23/2023 01/21/2025 1 1 [facility] for referral (narrative)* Diagnostic Procedure Only (Routine) - Closed Specialty Diagnoses / Procedures Referred By Contac t Referred To Contact XR IMAGING Diagnoses Right elbow pain Monoarthritis of elbow, right Procedures XR ELBOW SPECIAL VIEWS AP/LAT/OTHER RIGHT RADEX ELBOW COMPLETE MINIMUM 3 VIEWS Ronaldo Pleitez MD [address] [place] [address] [place] [id number] Referral ID Status Reason Start Date Expiration Date V isits Requested Visits Authorized [id number] Closed Auto-Generate d Referral 12/23/2023 01/21/2025 1 1 [facility] for referral (narrative)* Diagnostic Procedure Only (Routine) - New Request Specialty Diagnoses / Procedures Referred By Contac t Referred To Contact [facility] Diagnoses 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 Encounter for screening for cardiovascular disorders SOB (shortness of breath) Procedures NM CARDIAC PERF STRESS/PHARM MYOCARDIAL SPECT MULTIPLE STUDIES Iram Johnson, MARTIN.OFF[employer] SALES REPRESENTATIVE [address] [facility] [address] [place] [address] Molecular [facility] Functional [facility] [address] [place] [address] Referral ID Status Reason Start Date Expiration Date Visits Requested Visits Authorized [id number] New Request Auto-Generat ed Referral 10/27/2025 1 1 [facility] for visit Narrative* Diagnostic Procedure Only (Routine) - Closed Specialty Diagnoses / Procedures Referred By Contac t Referred To Contact XR IMAGING Diagnoses Spinal stenosis of lumbar region with neurogenic claudication Procedures XR LUMBAR MOTION 4V AP/LAT/ FLEX/EXT RADEX SPINE LUMBOSACRAL MINIMUM 4 VIEWS Laron Fortune, ANDREW [address] [place] [address] Xr Imaging Referral ID Status Reason Start Date Expiration Date V isits Requested Visits Authorized [id number] Closed Auto-Generate d Referral 02/28/2022 03/30/2023 1 1 [facility] for visit Narrative* Diagnostic Procedure Only (Routine) - Closed Specialty Diagnoses / Procedures Referred By Contac t Referred To Contact XR IMAGING Diagnoses Pes anserine bursitis Acute pain of right knee Procedures XR KNEE LIMITED 2V AP/LAT RIGHT RADIOLOGIC EXAMINATION KNEE 1/2 VIEWS Tirmonia, Israel Cameron, DO [address] [place] [address] Xr Imaging Referral ID Status Reason Start Date Expiration Date V isits Requested Visits Authorized [id number] Closed Auto-Generate d Referral 05/29/2022 06/28/2023 1 1 [facility] for visit Narrative* Diagnostic Procedure Only (Routine) - Closed Specialty Diagnoses / Procedures Referred By Contac t Referred To Contact XR IMAGING Diagnoses Right elbow pain Monoarthritis of elbow, right Procedures XR ELBOW SPECIAL VIEWS AP/LAT/OTHER RIGHT RADEX ELBOW COMPLETE MINIMUM 3 VIEWS Ronaldo Pleitez MD [address] [place] [address] [place] [address] Referral ID Status Reason Start Date Expiration Date V isits Requested Visits Authorized [id number] Closed Auto-Generate d Referral 12/23/2023 01/21/2025 1 1 [facility] for visit Narrative* [place] Prior Authorization (Routine) - Authorized Specialty Diagnoses / Procedures Referred By Contac t Referred To Contact Diagnoses 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) Procedures DARBEPOETIN MARILU, NON-ESRD Baljinder Galloway, DO [address] [place] [address] Phone: tel: fax: Hematology/Oncology [address] [place] [address] Phone: tel: fax: Referral ID Status Reason Start Date Expiration Date V isits Requested Visits Authorized [id number] Authorized 11/22/2024 05/09/2025 12 12 [facility] for visit Narrative* [place] Prior Authorization (Routine) - Authorized Specialty Diagnoses / Procedures Referred By Contac t Referred To Contact Diagnoses 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) Procedures DARBEPOETIN MARILU, NON-ESRD Baljinder Galloway DO [address] [place] [address] Phone: tel: fax: Hematology/Oncology [address] [place] [address] Phone: tel: fax: Referral ID Status Reason Start Date Expiration Date V isits Requested Visits Authorized [id number] Authorized 11/22/2024 05/09/2025 12 12 [facility] Chief Complaint Chief Complaint Description Start Date right ankle pain Preliminary chief co mplaint data, not yet signed by the author as of Instructions Instruction Description Start Date CompletedPatient advised to follow-up with Primary Care Physician for BMI management. 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 Advance Directive(s) 05/30/2022 10:37 AM Date Activated Date Inactivated Comments 09/15/2022 5:52 PM 09/18/2022 10:33 PM Question Answer Comments Full Code Order Discussed With: Patient Date Activated Date Inactivated Comments 08/27/2022 8:34 AM 09/05/2022 5:31 PM Question Answer Comments Full Code Order Discussed With: Patient Date Activated Date Inactivated Comments 08/22/2022 6:39 PM 08/26/2022 5:09 PM Question Answer Comments Full Code Order Discussed With: Patient Documents on File Type Date Recorded 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 Advance Directive(s) 02/01/2021 2:20 PM Advance Directive(s) 04/26/2009 10:50 AM Documents on File Type Date Recorded 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 Advance Directive(s) 02/01/2021 2:20 PM Advance Directive(s) 04/26/2009 10:50 AM Documents on File Type Date Recorded 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 Advance Directive(s) 05/30/2022 10:37 AM Advance Directive(s) 02/01/2021 2:20 PM Documents on File Type Date Recorded 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 Advance Directive(s) 05/30/2022 10:37 AM Advance Directive(s) 02/01/2021 2:20 PM Latest Code Status on File Code Status Date Activated Date Inactivated Comments Full Code 08/22/2022 6:39 PM Full Code Order Discussed With: Patient Latest Code Status on File Code Status Date Activated Date Inactivated Comments Full Code 08/27/2022 8:34 AM Full Code 08/22/2022 6:39 PM 08/26/2022 5:09 PM Latest Code Status on File Code Status Date Activated Date Inactivated Comments Full Code 08/27/2022 8:34 AM 09/05/2022 5:31 PM Latest Code Status on File Code Status Date Activated Date Inactivated Comments Full Code 09/15/2022 5:52 PM Full Code 08/27/2022 8:34 AM 09/05/2022 5:31 PM Latest Code Status on File Code Status Date Activated Date Inactivated Comments Full Code 09/15/2022 5:52 PM 09/18/2022 10:33 PM Documents on File Type Date Recorded 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 Advance Directive(s) 05/30/2022 10:37 AM Latest Code Status on File Code Status Date Activated Date Inactivated Comments Full Code 09/15/2022 5:52 PM 09/18/2022 10:33 PM Full Code 08/27/2022 8:34 AM 09/05/2022 5:31 PM Full Code 08/22/2022 6:39 PM 08/26/2022 5:09 PM Advance Directive Response Recorded Date/ Time Name of Medical Power of Ceramic Tile Installation Helper Liza Pulido May 14, 2023 12:18pm Living Will Yes May 14, 2023 1 2:18pm Power of Ceramic Tile Installation Helper Yes May 14, 2023 12:18pm Advance Directive Response Recorded Date/ Time Name of Medical Power of Ceramic Tile Installation Helper Liza Pulido May 14, 2023 6:22pm Living Will Yes May 14, 2023 6 :22pm Power of Ceramic Tile Installation Helper Yes May 14, 2023 6:22pm Latest Code Status on File Code Status Date Activated Date Inactivated Comments Full Code 09/15/2022 5:52 PM 09/18/2022 10:33 PM Question Answer Comments Full Code Order Discussed With: Patient Code Status History Code Status Date Activated Date Inactivated Comments Full Code 08/27/2022 8:34 AM 09/05/2022 5:31 PM Question Answer Comments Full Code Order Discussed With: Patient Full Code 08/22/2022 6:39 PM 08/26/2022 5:09 PM Question Answer Comments Full Code Order Discussed With: Patient Latest Code Status on File Code Status Date Activated Date Inactivated Comments Full Code 09/15/2022 5:52 PM 09/18/2022 10:33 PM Question Answer Comments Full Code Order Discussed With: Patient Code Status History Code Status Date Activated Date Inactivated Comments Full Code 08/27/2022 8:34 AM 09/05/2022 5:31 PM Question Answer Comments Full Code Order Discussed With: Patient Full Code 08/22/2022 6:39 PM 08/26/2022 5:09 PM Question Answer Comments Full Code Order Discussed With: Patient Date Activated Date Inactivated Comments 09/15/2022 5:52 PM 09/18/2022 10:33 PM Question Answer Comments Full Code Order Discussed With: Patient Date Activated Date Inactivated Comments 08/27/2022 8:34 AM 09/05/2022 5:31 PM Question Answer Comments Full Code Order Discussed With: Patient Date Activated Date Inactivated Comments 08/22/2022 6:39 PM 08/26/2022 5:09 PM Question Answer Comments Full Code Order Discussed With: Patient Assessments There may be information available, but it has not been provided by the sender. Review of System There may be information available, but it has not been provided by the sender. Family History No Family History Records Found Relationship Condition Age at Onset Recorded Date/T meaghan mother Cardiac disease Unknown father Cardiac disease Unknown History of Present Illness There may be information available, but it has not been provided by the sender. Summary Purpose Reason for Referral Specialty Diagnoses / Procedures Referred By Carissa diaz Referred To Contact MR IMAGING Diagnoses Spinal stenosis of lumbar region with neurogenic claudication Procedures MRI LUMBAR SPINE WO IVCON MRI SPINAL CANAL LUMBAR W/O CONTRAST MATERIAL Laron Fortune PA-C [address] [phone] Mr Imaging Referral ID Status Reason Start Date Expiration Date Visits Requested Visits Authorized [id number] Authorized Auto-Generat ed Referral 05/08/2022 06/07/2023 1 1 Referral ID Status Reason Start Date Expiration Date V isits Requested Visits Authorized [id number] Closed Auto-Generate d Referral 05/08/2022 06/07/2023 1 1 Specialty Diagnoses / Procedures Referred By Contac t Referred To Contact CT IMAGING Diagnoses Unstable gait Postural dizziness Confusion and disorientation Diplopia Procedures CT BRAIN WO IVCON CT HEAD/BRAIN W/O CONTRAST MATERIAL Israel Pruitt DO [address] [place] [address] Ct Imaging Referral ID Status Reason Start Date Expiration Date Visits Requested Visits Authorized [id number] Authorized Auto-Generat ed Referral 04/20/2023 05/19/2024 1 1 Specialty Diagnoses / Procedures Referred By Contmar t Referred To Contact CT IMAGING Diagnoses Unstable gait Postural dizziness Confusion and disorientation Diplopia Procedures CT BRAIN WO IVCON CT HEAD/BRAIN W/O CONTRAST MATERIAL Israel Pruitt DO [address] [place] [address] [place] [address] Referral ID Status Reason Start Date Expiration Date V isits Requested Visits Authorized [id number] Closed Auto-Generate d Referral 04/20/2023 05/19/2024 1 1 Health Concerns Infection Onset Date Last Indicated Resolved Time COVID-19 Rule-Out 07/04/2022 07/04/2022 07/04/2022 3:37 PM EDT Infection Onset Date Last Indicated Resolved Time COVID-19 Rule-Out 08/22/2022 08/22/2022 08/22/2022 12:35 PM EDT Medications Administered Section Inactive Administered Medications - up to 3 most recent administrations Medication Order MAR Action Action Date Dose Rate Site furosemide 20 mg injection (LASIX) 20 mg, INTRAVENOUS, ONCE, 1 dose, On Sofya 07/17/22 at 1200 Given 07/17/2022 11:45 AM EDT 20 mg sodium chloride 0.9 % (flush) 2-10 mL (BD POSIFLUSH) 2-10 mL, INTRAVENOUS, ONCE, 1 dose, On Sofya 07/17/22 at 1200 Given 07/17/2022 11:50 AM EDT 10 mL Inactive Administered Medications - up to 3 most recent administrations Medication Order MAR Action Action Date Dose Rate Site fentaNYL 50 mcg/mL injection (SUBLIMAZE) INTRAVENOUS, X (OR/PROCEDURE) PRN, Starting on Thu10/24/22 at 1221, Until 10/25/22 at 0303, Intraprocedure Given 10/24/2022 12:21 PM EST 50 mcg fentaNYL 50 mcg/mL injection (SUBLIMAZE) INTRAVENOUS, X (OR/PROCEDURE) PRN, Starting on Thu10/24/22 at 1226, Until 10/25/22 at 0303, Intraprocedure Given 10/24/2022 12:26 PM EST 50 mcg lidocaine (PF) 20 mg/mL (2 %) injection (XYLOCAINE) SUBCUTANEOUS, X (OR/PROCEDURE) PRN, Starting on Thu10/24/22 at 1223, Until 10/25/22 at 0303, Intraprocedure Given 10/24/2022 12:23 PM EST 10 mL Back, Left midazolam (PF) injection (VERSED) INTRAVENOUS, X (OR/PROCEDURE) PRN, Starting on Thu10/24/22 at 1221, Until 10/25/22 at 0303, Intraprocedure Given 10/24/2022 12:21 PM EST 1 mg NaCl 0.9% iv infusion INTRAVENOUS, X (OR/PROCEDURE) CONTINUOUS, Starting on Thu10/24/22 at 1208, Until 10/25/22 at 0303, Intraprocedure New Bag/Syringe/Bottl e 10/24/2022 12:08 PM EST 500 mL 50 mL/hr sodium chloride 0.9 % (flush) (BD POSIFLUSH) INTRAVENOUS, X (OR/PROCEDURE) PRN, Starting on Thu10/24/22 at 1207, Until 10/25/22 at 0303, Intraprocedure Given 10/24/2022 12:07 PM EST 10 mL Inactive Administered Medications - up to 3 most recent administrations Medication Order MAR Action Action Date Dose Rate Site ceFAZolin iv piggyback 2 g in D5W (iso-osmotic) 100 mL (ANCEF) INTRAVENOUS, Administer over 30 Minutes, X (OR/PROCEDURE) CONTINUOUS, Starting on Thu12/05/22 at 1021, Until 12/06/22 at 0303, Intraprocedure New Bag/Syringe/Luis ttle 12/05/2022 10:21 AM EST 2 g 200 mL/hr heparin 100 unit/mL injection X (OR/PROCEDURE) PRN, Starting on Thu12/05/22 at 1052, Until 12/06/22 at 0303, Intraprocedure Given 12/05/2022 10:52 AM EST 500 Units lidocaine 2%-EPINEPHrine 1:100,000 injection OTHER, X (OR/PROCEDURE) PRN, Starting on Thu12/05/22 at 1041, Until 12/06/22 at 0303, Intraprocedure Given 12/05/2022 10:41 AM EST 10 mL Arm, Right topical skin adhesive (DERMABOND) TOPICAL, X (OR/PROCEDURE) PRN, Starting on Thu12/05/22 at 1100, Until 12/06/22 at 0303, Intraprocedure Given 12/05/2022 11:00 AM EST 1 application Inactive Administered Medications - up to 3 most recent administrations Medication Order MAR Action Action Date Dose Rate Site azaCITIDine 146.25 mg in NaCl 0.9% 124.625 mL (VIDAZA) 146.25 mg (75 mg/m2 1.95 m2 Treatment Plan BSA from Recorded weight), INTRAVENOUS, at 747.75 mL/hr, Administer over 10 Minutes, ONCE, 1 dose, On Thu12/15/22 at 0930, Must Be Given Within 1 Hour Of Reconstitution - EXPIRES 10:30am 12-15-2022 Hazardous Chemotherapy Drug: Use appropriate PPE. New Bag/Syringe/Eliseo le 12/15/2022 9:59 AM EST 146.25 mg 747.75 mL/hr dexAMETHasone sodium phosphate (PF) 10 mg injection (DECADRON) 10 mg, INTRAVENOUS, ONCE, 1 dose, On Thu12/15/22 at 0930 Given 12/15/2022 9:13 AM EST 10 mg ondansetron (PF) 8 mg injection (ZOFRAN) 8 mg, INTRAVENOUS, ONCE, 1 dose, On Thu12/15/22 at 0930 Given 12/15/2022 9:10 AM EST 8 mg Inactive Administered Medications - up to 3 most recent administrations Medication Order MAR Action Action Date Dose Rate Site azaCITIDine 146.25 mg in NaCl 0.9% 124.625 mL (VIDAZA) 146.25 mg (75 mg/m2 1.95 m2 Treatment Plan BSA from Recorded weight), INTRAVENOUS, at 747.75 mL/hr, Administer over 10 Minutes, ONCE, 1 dose, On Thu12/17/22 at 1530, Must Be Given Within 1 Hour Of Reconstitution - EXP: 4:15pm 12-17-22 Hazardous Chemotherapy Drug: Use appropriate PPE. New Bag/Syringe/Eliseo le 2022 3:29 PM EST 146.25 mg 747.75 mL/hr dexAMETHasone sodium phosphate (PF) 10 mg injection (DECADRON) 10 mg, INTRAVENOUS, ONCE, 1 dose, On Thu12/17/22 at 1530 Given 2022 3:18 PM EST 10 mg ondansetron (PF) 8 mg injection (ZOFRAN) 8 mg, INTRAVENOUS, ONCE, 1 dose, On Thu12/17/22 at 1530 Given 2022 3:18 PM EST 8 mg Inactive Administered Medications - up to 3 most recent administrations Medication Order MAR Action Action Date Dose Rate Site azaCITIDine 146.25 mg in NaCl 0.9% 124.625 mL (VIDAZA) 146.25 mg (75 mg/m2 1.95 m2 Treatment Plan BSA from Recorded weight), INTRAVENOUS, at 747.75 mL/hr, Administer over 10 Minutes, ONCE, 1 dose, On Thu12/22/22 at 1530, Must Be Given Within 1 Hour Of Reconstitution EXP 4:20pm 12-22-22 Hazardous Chemotherapy Drug: Use appropriate PPE. New Bag/Syringe/Eliseo le 12/22/2022 3:31 PM EST 146.25 mg 747.75 mL/hr dexAMETHasone sodium phosphate (PF) 10 mg injection (DECADRON) 10 mg, INTRAVENOUS, ONCE, 1 dose, On Thu12/22/22 at 1530 Given 12/22/2022 3:14 PM EST 10 mg heparin 100 unit/mL 500 Units injection 500 Units (5 mL), INTRAVENOUS, DIRECTED NEEDED, Starting on Thu12/22/22 at 1500, Until Thu12/22/22 at 1751, See Administration Instructions, If no allergy to Heparin: IVADS not in use should be accessed and flushed once every 4 to 6 weeks with 5 mL of Heparin (100units/mL). Upon de-access of Arthur needle, when re-access is not indicated, ports will be flushed with 5 mL of Heparin (100 units/mL). Do not remove or delete this order unless patient has an allergy/contraindication to Heparin, or has a saline only IVAD. Given 12/22/2022 3:50 PM EST 500 Units ondansetron (PF) 8 mg injection (ZOFRAN) 8 mg, INTRAVENOUS, ONCE, 1 dose, On Thu12/22/22 at 1530 Given 12/22/2022 3:14 PM EST 8 mg sodium chloride 0.9 % (flush) 10-20 mL (BD POSIFLUSH) 10-20 mL, INTRAVENOUS, NEEDED, Starting on Thu12/22/22 at 1500, Until Thu12/22/22 at 1751, See Administration Instructions, If no IVAD access, may place IV if needed for labs or possible treatment. Flush 10-20ml on IV start and as needed. D5W or LR may be used in place of NS for medication that are incompatible (i.e. with oxaliplatin). Given 12/22/2022 3:50 PM EST 20 mL Inactive Administered Medications - up to 3 most recent administrations Medication Order MAR Action Action Date Dose Rate Site azaCITIDine 146.25 mg in NaCl 0.9% 124.625 mL (VIDAZA) 146.25 mg (75 mg/m2 1.95 m2 Treatment Plan BSA from Recorded weight), INTRAVENOUS, at 747.75 mL/hr, Administer over 10 Minutes, ONCE, 1 dose, On Thu01/12/23 at 0930, Must Be Given Within 1 Hour Of Reconstitution - EXP: 10:30am 01-12-23 Hazardous Chemotherapy Drug: Use appropriate PPE. New Bag/Syringe/Eliseo le 01/12/2023 9:57 AM EST 146.25 mg 747.75 mL/hr dexAMETHasone sodium phosphate (PF) 10 mg injection (DECADRON) 10 mg, INTRAVENOUS, ONCE, 1 dose, On Thu01/12/23 at 0930 Given 01/12/2023 9:30 AM EST 10 mg heparin 100 unit/mL 500 Units injection 500 Units (5 mL), INTRAVENOUS, DIRECTED NEEDED, Starting on Thu01/12/23 at 0921, Until Thu01/12/23 at 1218, See Administration Instructions, If no allergy to Heparin: IVADS not in use should be accessed and flushed once every 4 to 6 weeks with 5 mL of Heparin (100units/mL). Upon de-access of Arthur needle, when re-access is not indicated, ports will be flushed with 5 mL of Heparin (100 units/mL). Do not remove or delete this order unless patient has an allergy/contraindication to Heparin, or has a saline only IVAD. Given 01/12/2023 10:12 AM EST 500 Units ondansetron (PF) 8 mg injection (ZOFRAN) 8 mg, INTRAVENOUS, ONCE, 1 dose, On 01/12/23 at 0930 Given 01/12/2023 9:29 AM EST 8 mg Inactive Administered Medications - up to 3 most recent administrations Medication Order MAR Action Action Date Dose Rate Site azaCITIDine 146.25 mg in NaCl 0.9% 124.625 mL (VIDAZA) 146.25 mg (75 mg/m2 1.95 m2 Treatment Plan BSA from Recorded weight), INTRAVENOUS, at 747.75 mL/hr, Administer over 10 Minutes, ONCE, 1 dose, On Thu01/13/23 at 0830, Must Be Given Within 1 Hour Of Reconstitution EXPIRES at 9:45am 01-13-2023 Hazardous Chemotherapy Drug: Use appropriate PPE. New Bag/Syringe/Eliseo le 01/13/2023 9:29 AM EST 146.25 mg 747.75 mL/hr dexAMETHasone sodium phosphate (PF) 10 mg injection (DECADRON) 10 mg, INTRAVENOUS, ONCE, 1 dose, On Thu01/13/23 at 0830 Given 01/13/2023 8:51 AM EST 10 mg heparin 100 unit/mL 500 Units injection 500 Units (5 mL), INTRAVENOUS, DIRECTED NEEDED, Starting on Thu01/13/23 at 0829, Until Thu01/13/23 at 1038, See Administration Instructions, If no allergy to Heparin: IVADS not in use should be accessed and flushed once every 4 to 6 weeks with 5 mL of Heparin (100units/mL). Upon de-access of Arthur needle, when re-access is not indicated, ports will be flushed with 5 mL of Heparin (100 units/mL). Do not remove or delete this order unless patient has an allergy/contraindication to Heparin, or has a saline only IVAD. Given 01/13/2023 9:48 AM EST 500 Units ondansetron (PF) 8 mg injection (ZOFRAN) 8 mg, INTRAVENOUS, ONCE, 1 dose, On Thu01/13/23 at 0830 Given 01/13/2023 8:51 AM EST 8 mg Inactive Administered Medications - up to 3 most recent administrations Medication Order MAR Action Action Date Dose Rate Site azaCITIDine 146.25 mg in NaCl 0.9% 124.625 mL (VIDAZA) 146.25 mg (75 mg/m2 1.95 m2 Treatment Plan BSA from Recorded weight), INTRAVENOUS, at 747.75 mL/hr, Administer over 10 Minutes, ONCE, 1 dose, On Thu01/14/23 at 0830, Must Be Given Within 1 Hour Of Reconstitution - EXPIRES 9:40am 01-14-2023 Hazardous Chemotherapy Drug: Use appropriate PPE. New Bag/Syringe/Eliseo le 01/14/2023 9:20 AM EST 146.25 mg 747.75 mL/hr dexAMETHasone sodium phosphate (PF) 10 mg injection (DECADRON) 10 mg, INTRAVENOUS, ONCE, 1 dose, On Thu01/14/23 at 0900 Given 01/14/2023 8:46 AM EST 10 mg heparin 100 unit/mL 500 Units injection 500 Units (5 mL), INTRAVENOUS, DIRECTED NEEDED, Starting on Thu01/14/23 at 0836, Until Thu01/14/23 at 1821, See Administration Instructions, If no allergy to Heparin: IVADS not in use should be accessed and flushed once every 4 to 6 weeks with 5 mL of Heparin (100units/mL). Upon de-access of Arthur needle, when re-access is not indicated, ports will be flushed with 5 mL of Heparin (100 units/mL). Do not remove or delete this order unless patient has an allergy/contraindication to Heparin, or has a saline only IVAD. Given 01/14/2023 9:35 AM EST 500 Units ondansetron (PF) 8 mg injection (ZOFRAN) 8 mg, INTRAVENOUS, ONCE, 1 dose, On Thu01/14/23 at 0900 Given 01/14/2023 8:46 AM EST 8 mg Inactive Administered Medications - up to 3 most recent administrations Medication Order MAR Action Action Date Dose Rate Site azaCITIDine 146.25 mg in NaCl 0.9% 124.625 mL (VIDAZA) 146.25 mg (75 mg/m2 1.95 m2 Treatment Plan BSA from Recorded weight), INTRAVENOUS, at 747.75 mL/hr, Administer over 10 Minutes, ONCE, 1 dose, On Sofya 01/15/23 at 0830, Must Be Given Within 1 Hour Of Reconstitution - EXPIRES 9:45am 01-15-23 Hazardous Chemotherapy Drug: Use appropriate PPE. New Bag/Syringe/Eliseo le 01/15/2023 9:05 AM EST 146.25 mg 747.75 mL/hr dexAMETHasone sodium phosphate (PF) 10 mg injection (DECADRON) 10 mg, INTRAVENOUS, ONCE, 1 dose, On Thu01/15/23 at 0900 Given 01/15/2023 8:47 AM EST 10 mg ondansetron (PF) 8 mg injection (ZOFRAN) 8 mg, INTRAVENOUS, ONCE, 1 dose, On Thu01/15/23 at 0900 Given 01/15/2023 8:47 AM EST 8 mg Inactive Administered Medications - up to 3 most recent administrations Medication Order MAR Action Action Date Dose Rate Site azaCITIDine 146.25 mg in NaCl 0.9% 124.625 mL (VIDAZA) 146.25 mg (75 mg/m2 1.95 m2 Treatment Plan BSA from Recorded weight), INTRAVENOUS, at 747.75 mL/hr, Administer over 10 Minutes, ONCE, 1 dose, On Thu01/16/23 at 0830, Must Be Given Within 1 Hour Of Reconstitution -EXPIRES 9:40am 01-16-2023 Hazardous Chemotherapy Drug: Use appropriate PPE. New Bag/Syringe/Eliseo le 01/16/2023 8:55 AM EST 146.25 mg 747.75 mL/hr dexAMETHasone sodium phosphate (PF) 10 mg injection (DECADRON) 10 mg, INTRAVENOUS, ONCE, 1 dose, On Thu01/16/23 at 0830 Given 01/16/2023 8:38 AM EST 10 mg ondansetron (PF) 8 mg injection (ZOFRAN) 8 mg, INTRAVENOUS, ONCE, 1 dose, On Thu01/16/23 at 0830 Given 01/16/2023 8:38 AM EST 8 mg Inactive Administered Medications - up to 3 most recent administrations Medication Order MAR Action Action Date Dose Rate Site azaCITIDine 146.25 mg in NaCl 0.9% 124.625 mL (VIDAZA) 146.25 mg (75 mg/m2 1.95 m2 Treatment Plan BSA from Recorded weight), INTRAVENOUS, at 747.75 mL/hr, Administer over 10 Minutes, ONCE, 1 dose, On Thu01/19/23 at 0830, Must Be Given Within 1 Hour Of Reconstitution - EXPIRES at 9:35am 01-19-2023 Hazardous Chemotherapy Drug: Use appropriate PPE. New Bag/Syringe/Eliseo le 01/19/2023 9:17 AM EDT 146.25 mg 747.75 mL/hr dexAMETHasone sodium phosphate (PF) 10 mg injection (DECADRON) 10 mg, INTRAVENOUS, ONCE, 1 dose, On Thu01/19/23 at 0900 Given 01/19/2023 8:51 AM EDT 10 mg ondansetron (PF) 8 mg injection (ZOFRAN) 8 mg, INTRAVENOUS, ONCE, 1 dose, On Thu01/19/23 at 0900 Given 01/19/2023 8:51 AM EDT 8 mg Inactive Administered Medications - up to 3 most recent administrations Medication Order MAR Action Action Date Dose Rate Site azaCITIDine 146.25 mg in NaCl 0.9% 124.625 mL (VIDAZA) 146.25 mg (75 mg/m2 1.95 m2 Treatment Plan BSA from Recorded weight), INTRAVENOUS, at 747.75 mL/hr, Administer over 10 Minutes, ONCE, 1 dose, On Thu02/09/23 at 0900, Must Be Given Within 1 Hour Of Reconstitution - EXP: (1 hr) APPROX.TOTAL VOLUME _02/09/23 1000 mL Hazardous Chemotherapy Drug: Use appropriate PPE. New Bag/Syringe/Eliseo le 02/09/2023 9:24 AM EDT 146.25 mg 747.75 mL/hr dexAMETHasone sodium phosphate (PF) 10 mg injection (DECADRON) 10 mg, INTRAVENOUS, ONCE, 1 dose, On Thu02/09/23 at 0900 Given 02/09/2023 9:00 AM EDT 10 mg ondansetron (PF) 8 mg injection (ZOFRAN) 8 mg, INTRAVENOUS, ONCE, 1 dose, On Thu02/09/23 at 0900 Given 02/09/2023 9:00 AM EDT 8 mg Inactive Administered Medications - up to 3 most recent administrations Medication Order MAR Action Action Date Dose Rate Site azaCITIDine 146.25 mg in NaCl 0.9% 124.625 mL (VIDAZA) 146.25 mg (75 mg/m2 1.95 m2 Treatment Plan BSA from Recorded weight), INTRAVENOUS, at 747.75 mL/hr, Administer over 10 Minutes, ONCE, 1 dose, On Thu02/10/23 at 0900, Must Be Given Within 1 Hour Of Reconstitution - EXPIRES 9:55am 02-10-2023 Hazardous Chemotherapy Drug: Use appropriate PPE. New Bag/Syringe/Eliseo le 02/10/2023 9:25 AM EDT 146.25 mg 747.75 mL/hr dexAMETHasone sodium phosphate (PF) 10 mg injection (DECADRON) 10 mg, INTRAVENOUS, ONCE, 1 dose, On Thu02/10/23 at 0900 Given 02/10/2023 8:42 AM EDT 10 mg heparin 100 unit/mL 500 Units injection 500 Units (5 mL), INTRAVENOUS, DIRECTED NEEDED, Starting on Thu02/10/23 at 0838, Until Thu02/10/23 at 1206, See Administration Instructions, If no allergy to Heparin: IVADS not in use should be accessed and flushed once every 4 to 6 weeks with 5 mL of Heparin (100units/mL). Upon de-access of Arthur needle, when re-access is not indicated, ports will be flushed with 5 mL of Heparin (100 units/mL). Do not remove or delete this order unless patient has an allergy/contraindication to Heparin, or has a saline only IVAD. Given 02/10/2023 9:52 AM EDT 500 Units ondansetron (PF) 8 mg injection (ZOFRAN) 8 mg, INTRAVENOUS, ONCE, 1 dose, On Thu02/10/23 at 0900 Given 02/10/2023 8:42 AM EDT 8 mg Inactive Administered Medications - up to 3 most recent administrations Medication Order MAR Action Action Date Dose Rate Site azaCITIDine 146.25 mg in NaCl 0.9% 124.625 mL (VIDAZA) 146.25 mg (75 mg/m2 1.95 m2 Treatment Plan BSA from Recorded weight), INTRAVENOUS, at 747.75 mL/hr, Administer over 10 Minutes, ONCE, 1 dose, On Thu02/11/23 at 0830, Must Be Given Within 1 Hour Of Reconstitution - EXPIRES (:40am 02-11-2023 Hazardous Chemotherapy Drug: Use appropriate PPE. New Bag/Syringe/Eliseo le 02/11/2023 9:06 AM EDT 146.25 mg 747.75 mL/hr dexAMETHasone sodium phosphate (PF) 10 mg injection (DECADRON) 10 mg, INTRAVENOUS, ONCE, 1 dose, On Thu02/11/23 at 0900 Given 02/11/2023 8:40 AM EDT 10 mg ondansetron (PF) 8 mg injection (ZOFRAN) 8 mg, INTRAVENOUS, ONCE, 1 dose, On Thu02/11/23 at 0900 Given 02/11/2023 9:00 AM EDT 8 mg Inactive Administered Medications - up to 3 most recent administrations Medication Order MAR Action Action Date Dose Rate Site azaCITIDine 146.25 mg in NaCl 0.9% 124.625 mL (VIDAZA) 146.25 mg (75 mg/m2 1.95 m2 Treatment Plan BSA from Recorded weight), INTRAVENOUS, at 747.75 mL/hr, Administer over 10 Minutes, ONCE, 1 dose, On Thu02/12/23 at 0900, Must Be Given Within 1 Hour Of Reconstitution - EXPIRES 10:05am 02-12-2023 Hazardous Chemotherapy Drug: Use appropriate PPE. New Bag/Syringe/Eliseo le 02/12/2023 9:35 AM EDT 146.25 mg 747.75 mL/hr dexAMETHasone sodium phosphate (PF) 10 mg injection (DECADRON) 10 mg, INTRAVENOUS, ONCE, 1 dose, On Thu02/12/23 at 0900 Given 02/12/2023 9:02 AM EDT 10 mg ondansetron (PF) 8 mg injection (ZOFRAN) 8 mg, INTRAVENOUS, ONCE, 1 dose, On Thu02/12/23 at 0900 Given 02/12/2023 9:02 AM EDT 8 mg Inactive Administered Medications - up to 3 most recent administrations Medication Order MAR Action Action Date Dose Rate Site azaCITIDine 146.25 mg in NaCl 0.9% 124.625 mL (VIDAZA) 146.25 mg (75 mg/m2 1.95 m2 Treatment Plan BSA from Recorded weight), INTRAVENOUS, at 747.75 mL/hr, Administer over 10 Minutes, ONCE, 1 dose, On Thu02/13/23 at 0830, Must Be Given Within 1 Hour Of Reconstitution EXPIRES 9:45am 02-13-2023 Hazardous Chemotherapy Drug: Use appropriate PPE. New Bag/Syringe/Eliseo le 02/13/2023 9:00 AM EDT 146.25 mg 747.75 mL/hr dexAMETHasone sodium phosphate (PF) 10 mg injection (DECADRON) 10 mg, INTRAVENOUS, ONCE, 1 dose, On Thu02/13/23 at 0830 Given 02/13/2023 8:39 AM EDT 10 mg ondansetron (PF) 8 mg injection (ZOFRAN) 8 mg, INTRAVENOUS, ONCE, 1 dose, On Thu02/13/23 at 0830 Given 02/13/2023 8:43 AM EDT 8 mg Inactive Administered Medications - up to 3 most recent administrations Medication Order MAR Action Action Date Dose Rate Site azaCITIDine 146.25 mg in NaCl 0.9% 124.625 mL (VIDAZA) 146.25 mg (75 mg/m2 1.95 m2 Treatment Plan BSA from Recorded weight), INTRAVENOUS, at 747.75 mL/hr, Administer over 10 Minutes, ONCE, 1 dose, On Thu02/16/23 at 0900, Must Be Given Within 1 Hour Of Reconstitution - EXP: 02/16/23 1100 Hazardous Chemotherapy Drug: Use appropriate PPE. New Bag/Syringe/Eliseo le 02/16/2023 9:14 AM EDT 146.25 mg 747.75 mL/hr dexAMETHasone sodium phosphate (PF) 10 mg injection (DECADRON) 10 mg, INTRAVENOUS, ONCE, 1 dose, On Thu02/16/23 at 0900 Given 02/16/2023 8:44 AM EDT 10 mg heparin 100 unit/mL 500 Units injection 500 Units (5 mL), INTRAVENOUS, DIRECTED NEEDED, Starting on Thu02/16/23 at 0837, Until Thu02/16/23 at 1130, See Administration Instructions, If no allergy to Heparin: IVADS not in use should be accessed and flushed once every 4 to 6 weeks with 5 mL of Heparin (100units/mL). Upon de-access of Arthur needle, when re-access is not indicated, ports will be flushed with 5 mL of Heparin (100 units/mL). Do not remove or delete this order unless patient has an allergy/contraindication to Heparin, or has a saline only IVAD. Given 02/16/2023 9:28 AM EDT 500 Units ondansetron (PF) 8 mg injection (ZOFRAN) 8 mg, INTRAVENOUS, ONCE, 1 dose, On Thu02/16/23 at 0900 Given 02/16/2023 8:44 AM EDT 8 mg sodium chloride 0.9 % (flush) 10-20 mL (BD POSIFLUSH) 10-20 mL, INTRAVENOUS, NEEDED, Starting on Thu02/16/23 at 0837, Until Thu02/16/23 at 1130, See Administration Instructions, If no IVAD access, may place IV if needed for labs or possible treatment. Flush 10-20ml on IV start and as needed. D5W or LR may be used in place of NS for medication that are incompatible (i.e. with oxaliplatin). Given 02/16/2023 9:28 AM EDT 20 mL Inactive Administered Medications - up to 3 most recent administrations Medication Order MAR Action Action Date Dose Rate Site azaCITIDine 146.25 mg in NaCl 0.9% 124.625 mL (VIDAZA) 146.25 mg (75 mg/m2 1.95 m2 Treatment Plan BSA from Recorded weight), INTRAVENOUS, at 747.75 mL/hr, Administer over 10 Minutes, ONCE, 1 dose, On Thu02/17/23 at 0830, Must Be Given Within 1 Hour Of Reconstitution - EXPIRES 9:35am 02-17-23 Hazardous Chemotherapy Drug: Use appropriate PPE. New Bag/Syringe/Eliseo le 02/17/2023 8:51 AM EDT 146.25 mg 747.75 mL/hr dexAMETHasone sodium phosphate (PF) 10 mg injection (DECADRON) 10 mg, INTRAVENOUS, ONCE, 1 dose, On Thu02/17/23 at 0900 Given 02/17/2023 9:00 AM EDT 10 mg heparin 100 unit/mL 500 Units injection 500 Units (5 mL), INTRAVENOUS, DIRECTED NEEDED, Starting on Thu02/17/23 at 0843, Until Thu02/17/23 at 1125, See Administration Instructions, If no allergy to Heparin: IVADS not in use should be accessed and flushed once every 4 to 6 weeks with 5 mL of Heparin (100units/mL). Upon de-access of Arthur needle, when re-access is not indicated, ports will be flushed with 5 mL of Heparin (100 units/mL). Do not remove or delete this order unless patient has an allergy/contraindication to Heparin, or has a saline only IVAD. Given 02/17/2023 9:19 AM EDT 500 Units ondansetron (PF) 8 mg injection (ZOFRAN) 8 mg, INTRAVENOUS, ONCE, 1 dose, On Thu02/17/23 at 0900 Given 02/17/2023 9:00 AM EDT 8 mg sodium chloride 0.9 % (flush) 10-20 mL (BD POSIFLUSH) 10-20 mL, INTRAVENOUS, NEEDED, Starting on Thu02/17/23 at 0843, Until Thu02/17/23 at 1125, See Administration Instructions, If no IVAD access, may place IV if needed for labs or possible treatment. Flush 10-20ml on IV start and as needed. D5W or LR may be used in place of NS for medication that are incompatible (i.e. with oxaliplatin). Given 02/17/2023 9:19 AM EDT 20 mL Inactive Administered Medications - up to 3 most recent administrations Medication Order MAR Action Action Date Dose Rate Site azaCITIDine 146.25 mg in NaCl 0.9% 124.625 mL (VIDAZA) 146.25 mg (75 mg/m2 1.95 m2 Treatment Plan BSA from Recorded weight), INTRAVENOUS, at 747.75 mL/hr, Administer over 10 Minutes, ONCE, 1 dose, On Thu03/09/23 at 0900, Must Be Given Within 1 Hour Of Reconstitution - EXPIRES 10:10am 03-09-2023 Hazardous Chemotherapy Drug: Use appropriate PPE. New Bag/Syringe/Eliseo le 03/09/2023 9:29 AM EDT 146.25 mg 747.75 mL/hr dexAMETHasone sodium phosphate (PF) 10 mg injection (DECADRON) 10 mg, INTRAVENOUS, ONCE, 1 dose, On Thu03/09/23 at 0900 Given 03/09/2023 9:15 AM EDT 10 mg ondansetron (PF) 8 mg injection (ZOFRAN) 8 mg, INTRAVENOUS, ONCE, 1 dose, On Thu03/09/23 at 0900 Given 03/09/2023 9:15 AM EDT 8 mg Inactive Administered Medications - up to 3 most recent administrations Medication Order MAR Action Action Date Dose Rate Site azaCITIDine 146.25 mg in NaCl 0.9% 124.625 mL (VIDAZA) 146.25 mg (75 mg/m2 1.95 m2 Treatment Plan BSA from Recorded weight), INTRAVENOUS, at 747.75 mL/hr, Administer over 10 Minutes, ONCE, 1 dose, On Thu03/11/23 at 0900, Must Be Given Within 1 Hour Of Reconstitution - EXPIRES 9:45am 03-11-2023 Hazardous Chemotherapy Drug: Use appropriate PPE. New Bag/Syringe/Eliseo le 03/11/2023 9:00 AM EDT 146.25 mg 747.75 mL/hr dexAMETHasone sodium phosphate (PF) 10 mg injection (DECADRON) 10 mg, INTRAVENOUS, ONCE, 1 dose, On Thu03/11/23 at 0900 Given 03/11/2023 8:41 AM EDT 10 mg heparin 100 unit/mL 500 Units injection 500 Units (5 mL), INTRAVENOUS, DIRECTED NEEDED, Starting on Thu03/11/23 at 0835, Until Thu03/11/23 at 1056, See Administration Instructions, If no allergy to Heparin: IVADS not in use should be accessed and flushed once every 4 to 6 weeks with 5 mL of Heparin (100units/mL). Upon de-access of Arthur needle, when re-access is not indicated, ports will be flushed with 5 mL of Heparin (100 units/mL). Do not remove or delete this order unless patient has an allergy/contraindication to Heparin, or has a saline only IVAD. Given 03/11/2023 9:18 AM EDT 500 Units ondansetron (PF) 8 mg injection (ZOFRAN) 8 mg, INTRAVENOUS, ONCE, 1 dose, On Thu03/11/23 at 0900 Given 03/11/2023 8:41 AM EDT 8 mg sodium chloride 0.9 % (flush) 10-20 mL (BD POSIFLUSH) 10-20 mL, INTRAVENOUS, NEEDED, Starting on Thu03/11/23 at 0835, Until Thu03/11/23 at 1056, See Administration Instructions, If no IVAD access, may place IV if needed for labs or possible treatment. Flush 10-20ml on IV start and as needed. D5W or LR may be used in place of NS for medication that are incompatible (i.e. with oxaliplatin). Given 03/11/2023 9:18 AM EDT 20 mL Inactive Administered Medications - up to 3 most recent administrations Medication Order MAR Action Action Date Dose Rate Site azaCITIDine 146.25 mg in NaCl 0.9% 124.625 mL (VIDAZA) 146.25 mg (75 mg/m2 1.95 m2 Treatment Plan BSA from Recorded weight), INTRAVENOUS, at 747.75 mL/hr, Administer over 10 Minutes, ONCE, 1 dose, On Thu03/12/23 at 0830, Must Be Given Within 1 Hour Of Reconstitution - EXPIRES 9:30am 03-12-23 Hazardous Chemotherapy Drug: Use appropriate PPE. New Bag/Syringe/Eliseo le 03/12/2023 8:51 AM EDT 146.25 mg 747.75 mL/hr dexAMETHasone sodium phosphate (PF) 10 mg injection (DECADRON) 10 mg, INTRAVENOUS, ONCE, 1 dose, On Thu03/12/23 at 0830 Given 03/12/2023 8:38 AM EDT 10 mg ondansetron (PF) 8 mg injection (ZOFRAN) 8 mg, INTRAVENOUS, ONCE, 1 dose, On Thu03/12/23 at 0830 Given 03/12/2023 8:38 AM EDT 8 mg Inactive Administered Medications - up to 3 most recent administrations Medication Order MAR Action Action Date Dose Rate Site azaCITIDine 146.25 mg in NaCl 0.9% 124.625 mL (VIDAZA) 146.25 mg (75 mg/m2 1.95 m2 Treatment Plan BSA from Recorded weight), INTRAVENOUS, at 747.75 mL/hr, Administer over 10 Minutes, ONCE, 1 dose, On Thu03/13/23 at 0900, Must Be Given Within 1 Hour Of Reconstitution - EXPIRES 9:4503-13-2023 Hazardous Chemotherapy Drug: Use appropriate PPE. New Bag/Syringe/Eliseo le 03/13/2023 9:06 AM EDT 146.25 mg 747.75 mL/hr dexAMETHasone sodium phosphate (PF) 10 mg injection (DECADRON) 10 mg, INTRAVENOUS, ONCE, 1 dose, On Thu03/13/23 at 0900 Given 03/13/2023 8:38 AM EDT 10 mg ondansetron (PF) 8 mg injection (ZOFRAN) 8 mg, INTRAVENOUS, ONCE, 1 dose, On Thu03/13/23 at 0900 Given 03/13/2023 8:37 AM EDT 8 mg Inactive Administered Medications - up to 3 most recent administrations Medication Order MAR Action Action Date Dose Rate Site azaCITIDine 146.25 mg in NaCl 0.9% 124.625 mL (VIDAZA) 146.25 mg (75 mg/m2 1.95 m2 Treatment Plan BSA from Recorded weight), INTRAVENOUS, at 747.75 mL/hr, Administer over 10 Minutes, ONCE, 1 dose, On Thu03/16/23 at 0830, Must Be Given Within 1 Hour Of Reconstitution - EXPIRES at 9:45am 03-16-2023 Hazardous Chemotherapy Drug: Use appropriate PPE. New Bag/Syringe/Eliseo le 03/16/2023 9:09 AM EDT 146.25 mg 747.75 mL/hr dexAMETHasone sodium phosphate (PF) 10 mg injection (DECADRON) 10 mg, INTRAVENOUS, ONCE, 1 dose, On Thu03/16/23 at 0900 Given 03/16/2023 8:43 AM EDT 10 mg ondansetron (PF) 8 mg injection (ZOFRAN) 8 mg, INTRAVENOUS, ONCE, 1 dose, On Thu03/16/23 at 0900 Given 03/16/2023 8:43 AM EDT 8 mg Inactive Administered Medications - up to 3 most recent administrations Medication Order MAR Action Action Date Dose Rate Site azaCITIDine 146.25 mg in NaCl 0.9% 124.625 mL (VIDAZA) 146.25 mg (75 mg/m2 1.95 m2 Treatment Plan BSA from Recorded weight), INTRAVENOUS, at 747.75 mL/hr, Administer over 10 Minutes, ONCE, 1 dose, On Thu03/17/23 at 0830, Must Be Given Within 1 Hour Of Reconstitution - EXPIRES 9:30am 03-17-2023 Hazardous Chemotherapy Drug: Use appropriate PPE. New Bag/Syringe/Eliseo le 03/17/2023 9:01 AM EDT 146.25 mg 747.75 mL/hr dexAMETHasone sodium phosphate (PF) 10 mg injection (DECADRON) 10 mg, INTRAVENOUS, ONCE, 1 dose, On Thu03/17/23 at 0900 Given 03/17/2023 8:41 AM EDT 10 mg heparin 100 unit/mL 500 Units injection 500 Units (5 mL), INTRAVENOUS, DIRECTED NEEDED, Starting on Thu03/17/23 at 0842, Until Thu03/17/23 at 1121, See Administration Instructions, If no allergy to Heparin: IVADS not in use should be accessed and flushed once every 4 to 6 weeks with 5 mL of Heparin (100units/mL). Upon de-access of Arthur needle, when re-access is not indicated, ports will be flushed with 5 mL of Heparin (100 units/mL). Do not remove or delete this order unless patient has an allergy/contraindication to Heparin, or has a saline only IVAD. Given 03/17/2023 9:17 AM EDT 500 Units ondansetron (PF) 8 mg injection (ZOFRAN) 8 mg, INTRAVENOUS, ONCE, 1 dose, On Thu03/17/23 at 0900 Given 03/17/2023 8:41 AM EDT 8 mg sodium chloride 0.9 % (flush) 10-20 mL (BD POSIFLUSH) 10-20 mL, INTRAVENOUS, NEEDED, Starting on Thu03/17/23 at 0842, Until Thu03/17/23 at 1121, See Administration Instructions, If no IVAD access, may place IV if needed for labs or possible treatment. Flush 10-20ml on IV start and as needed. D5W or LR may be used in place of NS for medication that are incompatible (i.e. with oxaliplatin). Given 03/17/2023 9:17 AM EDT 20 mL Inactive Administered Medications - up to 3 most recent administrations Medication Order MAR Action Action Date Dose Rate Site azaCITIDine 146.25 mg in NaCl 0.9% 124.625 mL (VIDAZA) 146.25 mg (75 mg/m2 1.95 m2 Treatment Plan BSA from Recorded weight), INTRAVENOUS, at 747.75 mL/hr, Administer over 10 Minutes, ONCE, 1 dose, On Thu04/08/23 at 1030, Must Be Given Within 1 Hour Of Reconstitution - EXP: (1 hr) Hazardous Chemotherapy Drug: Use appropriate PPE. New Bag/Syringe/Eliseo le 04/08/2023 10:51 AM EDT 146.25 mg 747.75 mL/hr dexAMETHasone 10 mg/NS 50 mL (PYXIS) 10 mg ivpb (DECADRON) 10 mg, INTRAVENOUS, ONCE, 1 dose, On Thu04/08/23 at 1030, Refrigerate. New Bag/Syringe/Eliseo le 04/08/2023 10:21 AM EDT 10 mg ondansetron (PF) 8 mg injection (ZOFRAN) 8 mg, INTRAVENOUS, ONCE, 1 dose, On Thu04/08/23 at 1030 Given 04/08/2023 10:21 AM EDT 8 mg Inactive Administered Medications - up to 3 most recent administrations Medication Order MAR Action Action Date Dose Rate Site azaCITIDine 146.25 mg in NaCl 0.9% 124.625 mL (VIDAZA) 146.25 mg (75 mg/m2 1.95 m2 Treatment Plan BSA from Recorded weight), INTRAVENOUS, at 747.75 mL/hr, Administer over 10 Minutes, ONCE, 1 dose, On Thu04/09/23 at 0800, Must Be Given Within 1 Hour Of Reconstitution - EXP: (1 hr) Hazardous Chemotherapy Drug: Use appropriate PPE. New Bag/Syringe/Eliseo 04/09/2023 8:48 AM EDT 146.25 mg 747.75 mL/hr dexAMETHasone 10 mg/NS 50 mL (PYXIS) 10 mg ivpb (DECADRON) 10 mg, INTRAVENOUS, ONCE, 1 dose, On Thu04/09/23 at 0800, Refrigerate. New Bag/Syringe/Eliseo 04/09/2023 8:08 AM EDT 10 mg ondansetron (PF) 8 mg injection (ZOFRAN) 8 mg, INTRAVENOUS, ONCE, 1 dose, On Thu04/09/23 at 0800 Given 04/09/2023 8:08 AM EDT 8 mg Inactive Administered Medications - up to 3 most recent administrations Medication Order MAR Action Action Date Dose Rate Site azaCITIDine 146.25 mg in NaCl 0.9% 124.625 mL (VIDAZA) 146.25 mg (75 mg/m2 1.95 m2 Treatment Plan BSA from Recorded weight), INTRAVENOUS, at 747.75 mL/hr, Administer over 10 Minutes, ONCE, 1 dose, On Thu04/10/23 at 1030, Must Be Given Within 1 Hour Of Reconstitution - EXP: (1 hr) Hazardous Chemotherapy Drug: Use appropriate PPE. New Bag/Syringe/Eliseo le 04/10/2023 10:46 AM EDT 146.25 mg 747.75 mL/hr dexAMETHasone 10 mg/NS 50 mL (PYXIS) 10 mg ivpb (DECADRON) 10 mg, INTRAVENOUS, ONCE, 1 dose, On Thu04/10/23 at 1030, Refrigerate. New Bag/Syringe/Eliseo 04/10/2023 10:25 AM EDT 10 mg ondansetron (PF) 8 mg injection (ZOFRAN) 8 mg, INTRAVENOUS, ONCE, 1 dose, On Thu04/10/23 at 1030 Given 04/10/2023 10:23 AM EDT 8 mg Inactive Administered Medications - up to 3 most recent administrations Medication Order MAR Action Action Date Dose Rate Site azaCITIDine 146.25 mg in NaCl 0.9% 124.625 mL (VIDAZA) 146.25 mg (75 mg/m2 1.95 m2 Treatment Plan BSA from Recorded weight), INTRAVENOUS, at 747.75 mL/hr, Administer over 10 Minutes, ONCE, 1 dose, On Thu04/13/23 at 1030, Must Be Given Within 1 Hour Of Reconstitution APPROX.TOTAL VOLUME mL Hazardous Chemotherapy Drug: Use appropriate PPE. New Bag/Syringe/Eliseo 04/13/2023 10:50 AM EDT 146.25 mg 747.75 mL/hr dexAMETHasone 10 mg/NS 50 mL (PYXIS) 10 mg ivpb (DECADRON) 10 mg, INTRAVENOUS, ONCE, 1 dose, On Thu04/13/23 at 1030, Refrigerate. New Bag/Syringe/Eliseo 04/13/2023 10:33 AM EDT 10 mg ondansetron (PF) 8 mg injection (ZOFRAN) 8 mg, INTRAVENOUS, ONCE, 1 dose, On Thu04/13/23 at 1030 Given 04/13/2023 10:33 AM EDT 8 mg Inactive Administered Medications - up to 3 most recent administrations Medication Order MAR Action Action Date Dose Rate Site azaCITIDine 146.25 mg in NaCl 0.9% 124.625 mL (VIDAZA) 146.25 mg (75 mg/m2 1.95 m2 Treatment Plan BSA from Recorded weight), INTRAVENOUS, at 747.75 mL/hr, Administer over 10 Minutes, ONCE, 1 dose, On Thu04/14/23 at 1000, Must Be Given Within 1 Hour Of Reconstitution - EXP: (1 hr) Hazardous Chemotherapy Drug: Use appropriate PPE. New Bag/Syringe/Eliseo le 04/14/2023 10:40 AM EDT 146.25 mg 747.75 mL/hr dexAMETHasone 10 mg/NS 50 mL (PYXIS) 10 mg ivpb (DECADRON) 10 mg, INTRAVENOUS, ONCE, 1 dose, On Thu04/14/23 at 1000, Refrigerate. New Bag/Syringe/Eliseo le 04/14/2023 10:20 AM EDT 10 mg ondansetron (PF) 8 mg injection (ZOFRAN) 8 mg, INTRAVENOUS, ONCE, 1 dose, On Thu04/14/23 at 1000 Given 04/14/2023 10:21 AM EDT 8 mg Inactive Administered Medications - up to 3 most recent administrations Medication Order MAR Action Action Date Dose Rate Site azaCITIDine 146.25 mg in NaCl 0.9% 124.625 mL (VIDAZA) 146.25 mg (75 mg/m2 1.95 m2 Treatment Plan BSA from Recorded weight), INTRAVENOUS, at 747.75 mL/hr, Administer over 10 Minutes, ONCE, 1 dose, On Thu04/15/23 at 1430, Must Be Given Within 1 Hour Of Reconstitution - EXP: (1 hr) Hazardous Chemotherapy Drug: Use appropriate PPE. New Bag/Syringe/Eliseo 04/15/2023 2:52 PM EDT 146.25 mg 747.75 mL/hr dexAMETHasone 10 mg/NS 50 mL (PYXIS) 10 mg ivpb (DECADRON) 10 mg, INTRAVENOUS, ONCE, 1 dose, On Thu04/15/23 at 1430, Refrigerate. New Bag/Syringe/Eliseo 04/15/2023 2:36 PM EDT 10 mg ondansetron (PF) 8 mg injection (ZOFRAN) 8 mg, INTRAVENOUS, ONCE, 1 dose, On Thu04/15/23 at 1430 Given 04/15/2023 2:35 PM EDT 8 mg Inactive Administered Medications - up to 3 most recent administrations Medication Order MAR Action Action Date Dose Rate Site azaCITIDine 146.25 mg in NaCl 0.9% 124.625 mL (VIDAZA) 146.25 mg (75 mg/m2 1.95 m2 Treatment Plan BSA from Recorded weight), INTRAVENOUS, at 747.75 mL/hr, Administer over 10 Minutes, ONCE, 1 dose, On Thu05/04/23 at 1430, Must Be Given Within 1 Hour Of Reconstitution - EXP: (1 hr) (room temp) Hazardous Chemotherapy Drug: Use appropriate PPE. New Bag/Syringe/Eliseo le 05/04/2023 2:52 PM EDT 146.25 mg 747.75 mL/hr dexAMETHasone 10 mg/NS 50 mL (PYXIS) 10 mg ivpb (DECADRON) 10 mg, INTRAVENOUS, ONCE, 1 dose, On Thu05/04/23 at 1430, Refrigerate. New Bag/Syringe/Eliseo le 05/04/2023 2:30 PM EDT 10 mg ondansetron (PF) 8 mg injection (ZOFRAN) 8 mg, INTRAVENOUS, ONCE, 1 dose, On Thu05/04/23 at 1430 Given 05/04/2023 2:27 PM EDT 8 mg Inactive Administered Medications - up to 3 most recent administrations Medication Order MAR Action Action Date Dose Rate Site azaCITIDine 146.25 mg in NaCl 0.9% 124.625 mL (VIDAZA) 146.25 mg (75 mg/m2 1.95 m2 Treatment Plan BSA from Recorded weight), INTRAVENOUS, at 747.75 mL/hr, Administer over 10 Minutes, ONCE, 1 dose, On Thu05/05/23 at 1300, Must Be Given Within 1 Hour Of Reconstitution - EXP: (1 hr) 1415 05/05/23. APPROX.TOTAL VOLUME Hazardous Chemotherapy Drug: Use appropriate PPE. New Bag/Syringe/Eliseo le 05/05/2023 1:55 PM EDT 146.25 mg 747.75 mL/hr dexAMETHasone 10 mg/NS 50 mL (PYXIS) 10 mg ivpb (DECADRON) 10 mg, INTRAVENOUS, ONCE, 1 dose, On Thu05/05/23 at 1300, Refrigerate. New Bag/Syringe/Eliseo le 05/05/2023 1:34 PM EDT 10 mg ondansetron (PF) 8 mg injection (ZOFRAN) 8 mg, INTRAVENOUS, ONCE, 1 dose, On Thu05/05/23 at 1300 Given 05/05/2023 1:33 PM EDT 8 mg Inactive Administered Medications - up to 3 most recent administrations Medication Order MAR Action Action Date Dose Rate Site azaCITIDine 146.25 mg in sterile water 5.85 mL (VIDAZA) 146.25 mg (75 mg/m2 1.95 m2 Treatment Plan BSA from Recorded weight), SUBCUTANEOUS, ONCE, 1 dose, On Thu05/07/23 at 1430, exp (8hr) (refrigerated) 05/07/23 Hazardous Chemotherapy Drug: Use appropriate PPE. Given 05/07/2023 2:28 PM EDT 146.25 mg Abdominal Tissue dexAMETHasone 8 mg tab(s) (DECADRON) 8 mg, ORAL, ONCE, 1 dose, On Thu05/07/23 at 1430 Given 05/07/2023 2:27 PM EDT 8 mg ondansetron orally disintegrating 8 mg tab(s) (ZOFRAN ODT) 8 mg, ORAL, ONCE, 1 dose, On Thu05/07/23 at 1430, Place tablet on tongue and allow to dissolve; do not chew. Open packaging using dry hands; do not push tablet through packaging. Given 05/07/2023 2:27 PM EDT 8 mg Inactive Administered Medications - up to 3 most recent administrations Medication Order MAR Action Action Date Dose Rate Site azaCITIDine 146.25 mg in sterile water 5.85 mL (VIDAZA) 146.25 mg (75 mg/m2 1.95 m2 Treatment Plan BSA from Recorded weight), SUBCUTANEOUS, ONCE, 1 dose, On Thu05/08/23 at 1430, EXP: 05/08/23 (8 hours refrigerated) Hazardous Chemotherapy Drug: Use appropriate PPE. Given 05/08/2023 2:30 PM EDT 146.25 mg Abdominal Tissue dexAMETHasone 8 mg tab(s) (DECADRON) 8 mg, ORAL, ONCE, 1 dose, On Thu05/08/23 at 1430 Given 05/08/2023 2:18 PM EDT 8 mg ondansetron orally disintegrating 8 mg tab(s) (ZOFRAN ODT) 8 mg, ORAL, ONCE, 1 dose, On Thu05/08/23 at 1430, Place tablet on tongue and allow to dissolve; do not chew. Open packaging using dry hands; do not push tablet through packaging. Given 05/08/2023 2:18 PM EDT 8 mg Inactive Administered Medications - up to 3 most recent administrations Medication Order MAR Action Action Date Dose Rate Site azaCITIDine 146.25 mg in sterile water 5.85 mL (VIDAZA) 146.25 mg (75 mg/m2 1.95 m2 Treatment Plan BSA from Recorded weight), SUBCUTANEOUS, ONCE, 1 dose, On Thu05/11/23 at 1530, Expires: 05/11/23 @ 1800 (refrigerated) Hazardous Chemotherapy Drug: Use appropriate PPE. Given 05/11/2023 3:38 PM EDT 146.25 mg Abdominal Tissue dexAMETHasone 8 mg tab(s) (DECADRON) 8 mg, ORAL, ONCE, 1 dose, On Thu05/11/23 at 1530 Given 05/11/2023 3:17 PM EDT 8 mg ondansetron orally disintegrating 8 mg tab(s) (ZOFRAN ODT) 8 mg, ORAL, ONCE, 1 dose, On Thu05/11/23 at 1530, Place tablet on tongue and allow to dissolve; do not chew. Open packaging using dry hands; do not push tablet through packaging. Given 05/11/2023 3:18 PM EDT 8 mg Inactive Administered Medications - up to 3 most recent administrations Medication Order MAR Action Action Date Dose Rate Site azaCITIDine 146.25 mg in sterile water 5.85 mL (VIDAZA) 146.25 mg (75 mg/m2 1.95 m2 Treatment Plan BSA from Recorded weight), SUBCUTANEOUS, ONCE, 1 dose, On Thu05/13/23 at 1400, Expires: 05/13/23 @ 1700 (refrigerated) Hazardous Chemotherapy Drug: Use appropriate PPE. Given 05/13/2023 2:23 PM EDT 146.25 mg Abdominal Tissue dexAMETHasone 8 mg tab(s) (DECADRON) 8 mg, ORAL, ONCE, 1 dose, On Thu05/13/23 at 1400 Given 05/13/2023 2:21 PM EDT 8 mg ondansetron orally disintegrating 8 mg tab(s) (ZOFRAN ODT) 8 mg, ORAL, ONCE, 1 dose, On Thu05/13/23 at 1400, Place tablet on tongue and allow to dissolve; do not chew. Open packaging using dry hands; do not push tablet through packaging. Given 05/13/2023 2:21 PM EDT 8 mg Chief Complaint and Reason for Visit Chief Complaint ATHEROEMBOLISM R PATO T SEPSIS, CELLULITIS, CHF, HYPOXEMIA, CMML Reason for Visit Feared condition not demonstrated Acquired immunocompromised state Cellulitis of right lower leg Complete heart block Coronary artery disease Hypoxemia Pacemaker Sepsis CMML (chronic myelomonocytic leukemia) Chief Complaint ATHEROEMBOLISM R PATO T SEPSIS, CELLULITIS, CHF, HYPOXEMIA, CMML SEPSIS, CELLULITIS, CHF, HYPOXEMIA, CMML SEPSIS, CELLULITIS, CHF, HYPOXEMIA, CMML SEPSIS, CELLULITIS, CHF, HYPOXEMIA, CMML SEPSIS, CELLULITIS, CHF, HYPOXEMIA, CMML Reason for Visit Feared condition not demonstrated Acquired immunocompromised state Bacteremia due to Gram-negative bacteria Cellulitis of right lower leg Complete heart block Coronary artery disease Hypoxemia Pacemaker Sepsis CMML (chronic myelomonocytic leukemia) Chief Complaint ATHEROEMBOLISM R PATO T INTERMEDIATE LAB WORK INTERMEDIATE LAB WORK SEPSIS, CELLULITIS, CHF, HYPOXEMIA, CMML SEPSIS, CELLULITIS, CHF, HYPOXEMIA, CMML SEPSIS, CELLULITIS, CHF, HYPOXEMIA, CMML SEPSIS, CELLULITIS, CHF, HYPOXEMIA, CMML SEPSIS, CELLULITIS, CHF, HYPOXEMIA, CMML 1 UNIT PRBC INTERMEDIATE LAB WORK Reason for Visit Feared condition not demonstrated Acquired immunocompromised state Bacteremia due to Gram-negative bacteria Coronary artery disease Hypoxemia Pacemaker Sepsis CMML (chronic myelomonocytic leukemia) Cellulitis of right lower leg Additional Source Comments Reason for Visit (unrecogniz ed section and content) Reason Comments Occupational Therapy Specialty Diagnoses / Procedures Referred By Contac t Referred To Contact Occupational Therapy / [facility] Diagnoses Stroke (cerebrum) (HCC) Driving safety issue Stroke/driving evaluation Procedures OCCUPATIONAL THERAPY EVAL HIGH COMPLEX 60 MINS THERAPEUT ACTVITY DIRECT PT CONTACT EACH 15 MIN NEW RS OT COMM REINTEGRATION Homer Soto MD [address] [place] [address] Rosa Garcia OT/L Referral ID Status Reason Start Date Expiration Date V isits Requested Visits Authorized [id number] Authorized 11/09/2021 11/08/2022 99 99 Reason Comments Physical Therapy Specialty Diagnoses / Procedures Referred By Contac t Referred To Contact PHYSICAL THERAPY Diagnoses Spinal stenosis of lumbar region with neurogenic claudication Procedures CONSULT TO PHYSICAL THERAPY Laron Fortune PA-C [address] [place] [address] Sanket Solo, PT [address] [place] [address] Referral ID Status Reason Start Date Expiration Date V isits Requested Visits Authorized [id number] Authorized 02/28/2022 11/08/2022 99 99 Reason For Visit Description Start Date New - 1st visit with practice Preliminary reason f or visit data, not yet signed by the author as of right ankle pain Reason Comments Refill Request Reason Onset Date Comments Refill Request 02/20/2022 Reason Comments Breathing Problem Edema Pain, Back Reason Comments 4 month phone visit lab review Reason Comments PT Eval Reason Comments Recheck Reason Comments Results Reason Comments Results, Lab Reason Onset Date Comments Refill Request 04/17/2022 Reason Comments Established Patient lower back pain Reason Comments Appointment Specialty Diagnoses / Procedures Referred By Contac t Referred To Contact MR IMAGING Diagnoses Spinal stenosis of lumbar region with neurogenic claudication Procedures MRI LUMBAR SPINE WO IVCON MRI SPINAL CANAL LUMBAR W/O CONTRAST MATERIAL Laron Fortune PA-C [address] [place] [address] Mr Imaging Referral ID Status Reason Start Date Expiration Date V isits Requested Visits Authorized [id number] Closed Auto-Generate d Referral 05/08/2022 06/07/2023 1 1 Reason Comments Recheck lab review Reason Comments Opened In Error Reason Comments Radiology XR Reason Comments Follow Up Reason Comments Consult Injection Schedule Injection Cardiac Clearance Reason Comments Home Health Orders Reason Onset Date Comments Transition Of Care 07/10/2022 TCM Hospital Discharge 07/09/22 Reason Comments Orders HFC order contact/ap pt Reason Comments Patient Update Reason Comments CHF New Patient Reason Comments Consult Reason Comments Hospital F/U [facility] 8-26-2 2 to 07-09-22-CHF Reason Onset Date Comments Transition Of Care 07/25/2022 TCM F/U Reason Onset Date Comments Transition Of Care 08/07/2022 TCM F/U Reason Onset Date Comments Refill Request 08/14/2022 Reason Comments Numbness Reason Comments Patient Question Reason Onset Date Comments Transition Of Care 09/08/2022 Reason Comments Occupation Therapy Plan of care Reason Comments Transition Of Care Rehab Reason Comments Patient Update Orders Reason Onset Date Comments Transition Of Care 09/19/2022 Reason Comments Patient Question Appointment Reason Onset Date Comments Transition Of Care 09/19/2022 TCM Pharmacy- Hospital discharge 09/18/22 Reason Comments Hospital F/U Reason Comments Wound Check Reason Comments OT EVAL Reason Comments Orders Bone Marrow Biopsy Reason Comments CHF Follow Up Reason Onset Date Comments Refill Request 10/23/2022 Specialty Diagnoses / Procedures [facility]erred To Contact Diagnoses Macrocytic anemia Procedures DIAGNOSTIC BONE MARROW BIOPSIES & ASPIRATIONS DIAGNOSTIC BONE MARROW BIOPSY(IES) AND ASPIRATION(S) [facility] [address] [place] [address] Referral ID Status Reason Start Date Expiration Date Visits Re quested Visits Authorized [id number] 1 1 Reason Comments Established Patient Reason Comments ak HFC question Reason Onset Date Comments Refill Request 11/20/2022 Reason Comments Chemotherapy Education Class Specialty Diagnoses / Procedures [facility] Referred To Contact Diagnoses 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) Procedures INSJ PRPH CTR VAD W/SUBQ PORT AGE 5 YR/> PERIPHERAL INSERTION CV CATHETER WITH PORT, OVER 4 YRS [facility] [address] [place] [address] Referral ID Status Reason Start Date Expiration Date Visits Re quested Visits Authorized [id number] 1 1 Reason Comments Recheck 3 months F/U Reason Comments Chemotherapy Treatment Specialty Diagnoses / Procedures Referred By [facility] Referred To Contact Diagnoses 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) Procedures AZACITIDINE INJECTION Randa Rowell, DO [address] [facility] [address] [place] [address] Shaun Treat Hartwick Pob [address] [place] [address] Referral ID Status Reason Start Date Expiration Date V isits Requested Visits Authorized [id number] Authorized 12/10/2022 12/10/2023 1 99 Reason Comments Benefits Investigation Reason Onset Date Comments community monitoring outreach 01/08/2023 Cd m telephonic outreach Reason Comments Follow Up Reason Comments Permanent Pacemaker Reason Onset Date Comments community monitoring outreach 01/30/2023 Cd m telephonic outreach Reason Comments New Patient Reason Comments Escalation of Care Reason Onset Date Comments community monitoring outreach 03/19/2023 m telephonic outreach Reason Onset Date Comments community monitoring outreach 03/23/2023 Cd m ED follow up Reason Comments ED Follow-up Reason Comments Ab Initio Etl Developer - Other New patient Reason Onset Date Comments commuity monitoring outreach 04/14/2023 [facility] telephonic outreach Reason Comments Research Consent [id number] Reason Comments 4 month office visit Lab review Specialty Diagnoses / Procedures Referred By [facility] Referred To Contact Diagnoses 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) Procedures AZACITIDINE INJECTION Baljinder Galloway DO [address] [place] [address] [facility] [address] [place] [address] Referral ID Status Reason Start Date Expiration Date V isits Requested Visits Authorized [id number] Authorized 12/10/2022 05/04/2024 99 99 Reason Comments Chemotherapy Treatment Reason Comments Orders Reason Onset Date Comments [facility] 05/06/2023 Telephonic outre ach Reason Comments Imm/Inj immunization Reason Comments hepatitis B titer results/order Reason Comments Results DVT Reason Comments Patient Question Patient Update Update regarding dec ision making regarding patient's right-sided peripheral CV catheter with port with recent diagnosis right IJ DVT. 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 Reason Comments Medical Records Reason Comments Ab Initio Etl Developer - Other Symptoms Reason Comments Patient Question Patient Update Reason Comments readmit orders Reason Onset Date Comments CD 06/04/2023 Telephonic outre ach Reason Comments Establish Care From Taylor Pruitt DO. Reason Onset Date Comments [facility] 07/02/2023 Telephonic outre ach Reason Onset Date Comments [facility] 07/29/2023 Telephonic outre ach Reason Onset Date Comments [facility] 09/07/2023 Telephonic outre ach Reason Comments Radiology CT Specialty Diagnoses / Procedures Referred By Carissa t Referred To Contact CT IMAGING Diagnoses Unstable gait Postural dizziness Confusion and disorientation Diplopia Procedures CT BRAIN WO IVCON CT HEAD/BRAIN W/O CONTRAST MATERIAL Israel Pruitt DO [address] [place] [address] [place] [address] Referral ID Status Reason Start Date Expiration Date V isits Requested Visits Authorized [id number] Closed Auto-Generate d Referral 04/20/2023 05/19/2024 1 1 Reason Comments Patient Update Surgical site ( port removal ) Reason Onset Date Comments [facility] 10/07/2023 Telephonic outre ach Reason Onset Date Comments Refill Request 12/18/2023 Reason Comments Right arm pain Reason Onset Date Comments [facility] 01/01/2024 Telephonic outre ach Reason Comments Medicare Wellness Exam Reason Onset Date Comments [facility] 02/15/2024 Telephonic outre ach Reason Onset Date Comments [facility] 03/14/2024 Telephonic outre ach Reason Onset Date Comments [facility] 03/15/2024 Telephonic outre ach Reason Onset Date Comments [facility] 04/12/2024 Telephonic outre ach Reason Onset Date Comments [facility] 05/10/2024 Telephonic outre ach Reason Onset Date Comments [facility] 05/11/2024 Telephonic outre ach Reason Onset Date Comments Population Health Navigation Outreach 05/25/2024 Med Adherence ([place]) Reason Onset Date Comments [facility] 06/08/2024 Telephonic outre ach Reason Onset Date Comments [facility] 06/09/2024 Telephonic outre ach Reason Comments Remote Pacemaker Follow Up Reason Onset Date Comments [facility] 07/04/2024 Telephonic outre ach Reason Onset Date Comments [facility] 07/05/2024 Telephonic outre ach Reason Comments F/U 6 Month Reason Onset Date Comments [facility] 08/02/2024 Telephonic outre ach Reason Onset Date Comments [facility] 08/30/2024 Telephonic outre ach Reason Onset Date Comments [facility] 10/03/2024 [facility] Reason Comments short term medication request Reason Comments Results Patient Update Reason Comments 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 Specialty Diagnoses / Procedures Referred By [facility] Referred To Contact Diagnoses 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) Procedures DARBEPOETIN MARILU, NON-ESRD Baljinder Galloway, DO [address] [place] [address] [facility] [address] [place] [address] Referral ID Status Reason Start Date Expiration Date V isits Requested Visits Authorized [id number] Authorized 11/22/2024 05/09/2025 12 12 Reason Comments Imm/Inj Specialty Diagnoses / Procedures Referred By [facility] Referred To Contact Diagnoses 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) Procedures DARBEPOETIN MARILU, NON-ESRD Baljinder Galloway, DO [address] [facility] [place] [address] Phone: tel: fax: Hematology/Oncology [address] [place] [address] Phone: tel: fax: Reason Onset Date Comments Refill Request 12/23/2024 Reason Comments Medicare Wellness Exam Specialty Diagnoses / Procedures Referred By Contmar t Referred To Contact Diagnoses 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 Wou nd is bleeding and soaking through gauze Reason Comments Wound Care Recheck wounds on le ft arm Reason Comments Recheck Wound check-left arm (unrecognized sect ion and content) No Status Records FoundNo Status Records FoundNo Status Records FoundNo Status Records FoundNo Status Records FoundNo Status Records FoundNo Status Records Found INFORMATION SOURCE (unrecogn ized section and content) DATE CREATED AUTHOR 08/18/2021 [facility] DATE CREATED AUTHOR AUTHOR'S ORGANIZ ATION 02/04/2022 [facility] DATE CREATED AUTHOR AUTHOR'S ORGANIZ ATION 08/10/2022 [facility] DATE CREATED AUTHOR AUTHOR'S ORGANIZ ATION 04/21/2023 [facility] DATE CREATED AUTHOR AUTHOR'S ORGANIZ ATION 11/17/2024 [facility] DATE CREATED AUTHOR AUTHOR'S ORGANIZ ATION 06/11/2025 [facility] DATE CREATED AUTHOR AUTHOR'S ORGANIZ ATION 06/18/2025 [facility] Cathy baeza Source Comments (unrecognize d section and content) In the event this informatio n is protected by the Federal Confidentiality of Alcohol and Drug Abuse Patient Records regulations: The Federal rules restrict any use of the information to criminally investigate or prosecute any alcohol or drug abuse patient.[facility] the event this information is protected by the Federal Confidentiality of Alcohol and Drug Abuse Patient Records regulations: The Federal rules restrict any use of the information to criminally investigate or prosecute any alcohol or drug abuse patient.[facility] Hospital[facility] the event this information is protected by the Federal Confidentiality of Alcohol and Drug Abuse Patient Records regulations: The Federal rules restrict any use of the information to criminally investigate or prosecute any alcohol or drug abuse patient.[facility] HospitalIn the event this information is protected by the Federal Confidentiality of Alcohol and Drug Abuse Patient Records regulations: The Federal rules restrict any use of the information to criminally investigate or prosecute any alcohol or drug abuse patient.[facility] HospitalIn the event this information is protected by the Federal Confidentiality of Alcohol and Drug Abuse Patient Records regulations: The Federal rules restrict any use of the information to criminally investigate or prosecute any alcohol or drug abuse patient.[facility] HospitalIn the event this information is protected by the Federal Confidentiality of Alcohol and Drug Abuse Patient Records regulations: The Federal rules restrict any use of the information to criminally investigate or prosecute any alcohol or drug abuse patient.[facility] Hospital[facility] the event this information is protected by the Federal Confidentiality of Alcohol and Drug Abuse Patient Records regulations: The Federal rules restrict any use of the information to criminally investigate or prosecute any alcohol or drug abuse patient.[facility] HospitalIn the event this information is protected by the Federal Confidentiality of Alcohol and Drug Abuse Patient Records regulations: The Federal rules restrict any use of the information to criminally investigate or prosecute any alcohol or drug abuse patient.[facility] HospitalIn the event this information is protected by the Federal Confidentiality of Alcohol and Drug Abuse Patient Records regulations: The Federal rules restrict any use of the information to criminally investigate or prosecute any alcohol or drug abuse patient.[facility] HospitalIn the event this information is protected by the Federal Confidentiality of Alcohol and Drug Abuse Patient Records regulations: The Federal rules restrict any use of the information to criminally investigate or prosecute any alcohol or drug abuse patient.[facility] HospitalIn the event this information is protected by the Federal Confidentiality of Alcohol and Drug Abuse Patient Records regulations: The Federal rules restrict any use of the information to criminally investigate or prosecute any alcohol or drug abuse patient.[facility] HospitalIn the event this information is protected by the Federal Confidentiality of Alcohol and Drug Abuse Patient Records regulations: The Federal rules restrict any use of the information to criminally investigate or prosecute any alcohol or drug abuse patient.[facility] HospitalIn the event this information is protected by the Federal Confidentiality of Alcohol and Drug Abuse Patient Records regulations: The Federal rules restrict any use of the information to criminally investigate or prosecute any alcohol or drug abuse patient.[facility] HospitalIn the event this information is protected by the Federal Confidentiality of Alcohol and Drug Abuse Patient Records regulations: The Federal rules restrict any use of the information to criminally investigate or prosecute any alcohol or drug abuse patient.[facility] HospitalIn the event this information is protected by the Federal Confidentiality of Alcohol and Drug Abuse Patient Records regulations: The Federal rules restrict any use of the information to criminally investigate or prosecute any alcohol or drug abuse patient.[facility] HospitalIn the event this information is protected by the Federal Confidentiality of Alcohol and Drug Abuse Patient Records regulations: The Federal rules restrict any use of the information to criminally investigate or prosecute any alcohol or drug abuse patient.[facility] HospitalIn the event this information is protected by the Federal Confidentiality of Alcohol and Drug Abuse Patient Records regulations: The Federal rules restrict any use of the information to criminally investigate or prosecute any alcohol or drug abuse patient.[facility] HospitalIn the event this information is protected by the Federal Confidentiality of Alcohol and Drug Abuse Patient Records regulations: The Federal rules restrict any use of the information to criminally investigate or prosecute any alcohol or drug abuse patient.[facility] HospitalIn the event this information is protected by the Federal Confidentiality of Alcohol and Drug Abuse Patient Records regulations: The Federal rules restrict any use of the information to criminally investigate or prosecute any alcohol or drug abuse patient.[facility] HospitalIn the event this information is protected by the Federal Confidentiality of Alcohol and Drug Abuse Patient Records regulations: The Federal rules restrict any use of the information to criminally investigate or prosecute any alcohol or drug abuse patient.[facility] HospitalIn the event this information is protected by the Federal Confidentiality of Alcohol and Drug Abuse Patient Records regulations: The Federal rules restrict any use of the information to criminally investigate or prosecute any alcohol or drug abuse patient.[facility] HospitalIn the event this information is protected by the Federal Confidentiality of Alcohol and Drug Abuse Patient Records regulations: The Federal rules restrict any use of the information to criminally investigate or prosecute any alcohol or drug abuse patient.[facility] HospitalIn the event this information is protected by the Federal Confidentiality of Alcohol and Drug Abuse Patient Records regulations: The Federal rules restrict any use of the information to criminally investigate or prosecute any alcohol or drug abuse patient.[facility] HospitalIn the event this information is protected by the Federal Confidentiality of Alcohol and Drug Abuse Patient Records regulations: The Federal rules restrict any use of the information to criminally investigate or prosecute any alcohol or drug abuse patient.[facility] HospitalIn the event this information is protected by the Federal Confidentiality of Alcohol and Drug Abuse Patient Records regulations: The Federal rules restrict any use of the information to criminally investigate or prosecute any alcohol or drug abuse patient.[facility] HospitalIn the event this information is protected by the Federal Confidentiality of Alcohol and Drug Abuse Patient Records regulations: The Federal rules restrict any use of the information to criminally investigate or prosecute any alcohol or drug abuse patient.[facility] HospitalIn the event this information is protected by the Federal Confidentiality of Alcohol and Drug Abuse Patient Records regulations: The Federal rules restrict any use of the information to criminally investigate or prosecute any alcohol or drug abuse patient.[facility] HospitalIn the event this information is protected by the Federal Confidentiality of Alcohol and Drug Abuse Patient Records regulations: The Federal rules restrict any use of the information to criminally investigate or prosecute any alcohol or drug abuse patient.[facility] HospitalIn the event this information is protected by the Federal Confidentiality of Alcohol and Drug Abuse Patient Records regulations: The Federal rules restrict any use of the information to criminally investigate or prosecute any alcohol or drug abuse patient.[facility] HospitalIn the event this information is protected by the Federal Confidentiality of Alcohol and Drug Abuse Patient Records regulations: The Federal rules restrict any use of the information to criminally investigate or prosecute any alcohol or drug abuse patient.[facility] HospitalIn the event this information is protected by the Federal Confidentiality of Alcohol and Drug Abuse Patient Records regulations: The Federal rules restrict any use of the information to criminally investigate or prosecute any alcohol or drug abuse patient.[facility] HospitalIn the event this information is protected by the Federal Confidentiality of Alcohol and Drug Abuse Patient Records regulations: The Federal rules restrict any use of the information to criminally investigate or prosecute any alcohol or drug abuse patient.[facility] HospitalIn the event this information is protected by the Federal Confidentiality of Alcohol and Drug Abuse Patient Records regulations: The Federal rules restrict any use of the information to criminally investigate or prosecute any alcohol or drug abuse patient.[facility] HospitalIn the event this information is protected by the Federal Confidentiality of Alcohol and Drug Abuse Patient Records regulations: The Federal rules restrict any use of the information to criminally investigate or prosecute any alcohol or drug abuse patient.[facility] HospitalIn the event this information is protected by the Federal Confidentiality of Alcohol and Drug Abuse Patient Records regulations: The Federal rules restrict any use of the information to criminally investigate or prosecute any alcohol or drug abuse patient.[facility] HospitalIn the event this information is protected by the Federal Confidentiality of Alcohol and Drug Abuse Patient Records regulations: The Federal rules restrict any use of the information to criminally investigate or prosecute any alcohol or drug abuse patient.[facility] HospitalIn the event this information is protected by the Federal Confidentiality of Alcohol and Drug Abuse Patient Records regulations: The Federal rules restrict any use of the information to criminally investigate or prosecute any alcohol or drug abuse patient.[facility] HospitalIn the event this information is protected by the Federal Confidentiality of Alcohol and Drug Abuse Patient Records regulations: The Federal rules restrict any use of the information to criminally investigate or prosecute any alcohol or drug abuse patient.[facility] HospitalIn the event this information is protected by the Federal Confidentiality of Alcohol and Drug Abuse Patient Records regulations: The Federal rules restrict any use of the information to criminally investigate or prosecute any alcohol or drug abuse patient.[facility] HospitalIn the event this information is protected by the Federal Confidentiality of Alcohol and Drug Abuse Patient Records regulations: The Federal rules restrict any use of the information to criminally investigate or prosecute any alcohol or drug abuse patient.[facility] HospitalIn the event this information is protected by the Federal Confidentiality of Alcohol and Drug Abuse Patient Records regulations: The Federal rules restrict any use of the information to criminally investigate or prosecute any alcohol or drug abuse patient.[facility] HospitalIn the event this information is protected by the Federal Confidentiality of Alcohol and Drug Abuse Patient Records regulations: The Federal rules restrict any use of the information to criminally investigate or prosecute any alcohol or drug abuse patient.[facility] HospitalIn the event this information is protected by the Federal Confidentiality of Alcohol and Drug Abuse Patient Records regulations: The Federal rules restrict any use of the information to criminally investigate or prosecute any alcohol or drug abuse patient.[facility] HospitalIn the event this information is protected by the Federal Confidentiality of Alcohol and Drug Abuse Patient Records regulations: The Federal rules restrict any use of the information to criminally investigate or prosecute any alcohol or drug abuse patient.[facility] HospitalIn the event this information is protected by the Federal Confidentiality of Alcohol and Drug Abuse Patient Records regulations: The Federal rules restrict any use of the information to criminally investigate or prosecute any alcohol or drug abuse patient.[facility] HospitalIn the event this information is protected by the Federal Confidentiality of Alcohol and Drug Abuse Patient Records regulations: The Federal rules restrict any use of the information to criminally investigate or prosecute any alcohol or drug abuse patient.[facility] HospitalIn the event this information is protected by the Federal Confidentiality of Alcohol and Drug Abuse Patient Records regulations: The Federal rules restrict any use of the information to criminally investigate or prosecute any alcohol or drug abuse patient.[facility] HospitalIn the event this information is protected by the Federal Confidentiality of Alcohol and Drug Abuse Patient Records regulations: The Federal rules restrict any use of the information to criminally investigate or prosecute any alcohol or drug abuse patient.[facility] HospitalIn the event this information is protected by the Federal Confidentiality of Alcohol and Drug Abuse Patient Records regulations: The Federal rules restrict any use of the information to criminally investigate or prosecute any alcohol or drug abuse patient.[facility] HospitalIn the event this information is protected by the Federal Confidentiality of Alcohol and Drug Abuse Patient Records regulations: The Federal rules restrict any use of the information to criminally investigate or prosecute any alcohol or drug abuse patient.[facility] HospitalIn the event this information is protected by the Federal Confidentiality of Alcohol and Drug Abuse Patient Records regulations: The Federal rules restrict any use of the information to criminally investigate or prosecute any alcohol or drug abuse patient.[facility] HospitalIn the event this information is protected by the Federal Confidentiality of Alcohol and Drug Abuse Patient Records regulations: The Federal rules restrict any use of the information to criminally investigate or prosecute any alcohol or drug abuse patient.[facility] HospitalIn the event this information is protected by the Federal Confidentiality of Alcohol and Drug Abuse Patient Records regulations: The Federal rules restrict any use of the information to criminally investigate or prosecute any alcohol or drug abuse patient.[facility] HospitalIn the event this information is protected by the Federal Confidentiality of Alcohol and Drug Abuse Patient Records regulations: The Federal rules restrict any use of the information to criminally investigate or prosecute any alcohol or drug abuse patient.[facility] HospitalIn the event this information is protected by the Federal Confidentiality of Alcohol and Drug Abuse Patient Records regulations: The Federal rules restrict any use of the information to criminally investigate or prosecute any alcohol or drug abuse patient.[facility] HospitalIn the event this information is protected by the Federal Confidentiality of Alcohol and Drug Abuse Patient Records regulations: The Federal rules restrict any use of the information to criminally investigate or prosecute any alcohol or drug abuse patient.[facility] HospitalIn the event this information is protected by the Federal Confidentiality of Alcohol and Drug Abuse Patient Records regulations: The Federal rules restrict any use of the information to criminally investigate or prosecute any alcohol or drug abuse patient.[facility] HospitalIn the event this information is protected by the Federal Confidentiality of Alcohol and Drug Abuse Patient Records regulations: The Federal rules restrict any use of the information to criminally investigate or prosecute any alcohol or drug abuse patient.[facility] HospitalIn the event this information is protected by the Federal Confidentiality of Alcohol and Drug Abuse Patient Records regulations: The Federal rules restrict any use of the information to criminally investigate or prosecute any alcohol or drug abuse patient.[facility] HospitalIn the event this information is protected by the Federal Confidentiality of Alcohol and Drug Abuse Patient Records regulations: The Federal rules restrict any use of the information to criminally investigate or prosecute any alcohol or drug abuse patient.[facility] HospitalIn the event this information is protected by the Federal Confidentiality of Alcohol and Drug Abuse Patient Records regulations: The Federal rules restrict any use of the information to criminally investigate or prosecute any alcohol or drug abuse patient.[facility] HospitalIn the event this information is protected by the Federal Confidentiality of Alcohol and Drug Abuse Patient Records regulations: The Federal rules restrict any use of the information to criminally investigate or prosecute any alcohol or drug abuse patient.[facility] HospitalIn the event this information is protected by the Federal Confidentiality of Alcohol and Drug Abuse Patient Records regulations: The Federal rules restrict any use of the information to criminally investigate or prosecute any alcohol or drug abuse patient.[facility] HospitalIn the event this information is protected by the Federal Confidentiality of Alcohol and Drug Abuse Patient Records regulations: The Federal rules restrict any use of the information to criminally investigate or prosecute any alcohol or drug abuse patient.[facility] HospitalIn the event this information is protected by the Federal Confidentiality of Alcohol and Drug Abuse Patient Records regulations: The Federal rules restrict any use of the information to criminally investigate or prosecute any alcohol or drug abuse patient.[facility] HospitalIn the event this information is protected by the Federal Confidentiality of Alcohol and Drug Abuse Patient Records regulations: The Federal rules restrict any use of the information to criminally investigate or prosecute any alcohol or drug abuse patient.[facility] HospitalIn the event this information is protected by the Federal Confidentiality of Alcohol and Drug Abuse Patient Records regulations: The Federal rules restrict any use of the information to criminally investigate or prosecute any alcohol or drug abuse patient.[facility] HospitalIn the event this information is protected by the Federal Confidentiality of Alcohol and Drug Abuse Patient Records regulations: The Federal rules restrict any use of the information to criminally investigate or prosecute any alcohol or drug abuse patient.[facility] HospitalIn the event this information is protected by the Federal Confidentiality of Alcohol and Drug Abuse Patient Records regulations: The Federal rules restrict any use of the information to criminally investigate or prosecute any alcohol or drug abuse patient.[facility] HospitalIn the event this information is protected by the Federal Confidentiality of Alcohol and Drug Abuse Patient Records regulations: The Federal rules restrict any use of the information to criminally investigate or prosecute any alcohol or drug abuse patient.[facility] HospitalIn the event this information is protected by the Federal Confidentiality of Alcohol and Drug Abuse Patient Records regulations: The Federal rules restrict any use of the information to criminally investigate or prosecute any alcohol or drug abuse patient.[facility] HospitalIn the event this information is protected by the Federal Confidentiality of Alcohol and Drug Abuse Patient Records regulations: The Federal rules restrict any use of the information to criminally investigate or prosecute any alcohol or drug abuse patient.[facility] HospitalIn the event this information is protected by the Federal Confidentiality of Alcohol and Drug Abuse Patient Records regulations: The Federal rules restrict any use of the information to criminally investigate or prosecute any alcohol or drug abuse patient.[facility] HospitalIn the event this information is protected by the Federal Confidentiality of Alcohol and Drug Abuse Patient Records regulations: The Federal rules restrict any use of the information to criminally investigate or prosecute any alcohol or drug abuse patient.[facility] HospitalIn the event this information is protected by the Federal Confidentiality of Alcohol and Drug Abuse Patient Records regulations: The Federal rules restrict any use of the information to criminally investigate or prosecute any alcohol or drug abuse patient.[facility] HospitalIn the event this information is protected by the Federal Confidentiality of Alcohol and Drug Abuse Patient Records regulations: The Federal rules restrict any use of the information to criminally investigate or prosecute any alcohol or drug abuse patient.[facility] HospitalIn the event this information is protected by the Federal Confidentiality of Alcohol and Drug Abuse Patient Records regulations: The Federal rules restrict any use of the information to criminally investigate or prosecute any alcohol or drug abuse patient.[facility] HospitalIn the event this information is protected by the Federal Confidentiality of Alcohol and Drug Abuse Patient Records regulations: The Federal rules restrict any use of the information to criminally investigate or prosecute any alcohol or drug abuse patient.[facility] HospitalIn the event this information is protected by the Federal Confidentiality of Alcohol and Drug Abuse Patient Records regulations: The Federal rules restrict any use of the information to criminally investigate or prosecute any alcohol or drug abuse patient.[facility] HospitalIn the event this information is protected by the Federal Confidentiality of Alcohol and Drug Abuse Patient Records regulations: The Federal rules restrict any use of the information to criminally investigate or prosecute any alcohol or drug abuse patient.[facility] HospitalIn the event this information is protected by the Federal Confidentiality of Alcohol and Drug Abuse Patient Records regulations: The Federal rules restrict any use of the information to criminally investigate or prosecute any alcohol or drug abuse patient.[facility] HospitalIn the event this information is protected by the Federal Confidentiality of Alcohol and Drug Abuse Patient Records regulations: The Federal rules restrict any use of the information to criminally investigate or prosecute any alcohol or drug abuse patient.[facility] HospitalIn the event this information is protected by the Federal Confidentiality of Alcohol and Drug Abuse Patient Records regulations: The Federal rules restrict any use of the information to criminally investigate or prosecute any alcohol or drug abuse patient.[facility] HospitalIn the event this information is protected by the Federal Confidentiality of Alcohol and Drug Abuse Patient Records regulations: The Federal rules restrict any use of the information to criminally investigate or prosecute any alcohol or drug abuse patient.[facility] HospitalIn the event this information is protected by the Federal Confidentiality of Alcohol and Drug Abuse Patient Records regulations: The Federal rules restrict any use of the information to criminally investigate or prosecute any alcohol or drug abuse patient.[facility] HospitalIn the event this information is protected by the Federal Confidentiality of Alcohol and Drug Abuse Patient Records regulations: The Federal rules restrict any use of the information to criminally investigate or prosecute any alcohol or drug abuse patient.[facility] HospitalIn the event this information is protected by the Federal Confidentiality of Alcohol and Drug Abuse Patient Records regulations: The Federal rules restrict any use of the information to criminally investigate or prosecute any alcohol or drug abuse patient.[facility] HospitalIn the event this information is protected by the Federal Confidentiality of Alcohol and Drug Abuse Patient Records regulations: The Federal rules restrict any use of the information to criminally investigate or prosecute any alcohol or drug abuse patient.[facility] HospitalIn the event this information is protected by the Federal Confidentiality of Alcohol and Drug Abuse Patient Records regulations: The Federal rules restrict any use of the information to criminally investigate or prosecute any alcohol or drug abuse patient.[facility] HospitalIn the event this information is protected by the Federal Confidentiality of Alcohol and Drug Abuse Patient Records regulations: The Federal rules restrict any use of the information to criminally investigate or prosecute any alcohol or drug abuse patient.[facility] HospitalIn the event this information is protected by the Federal Confidentiality of Alcohol and Drug Abuse Patient Records regulations: The Federal rules restrict any use of the information to criminally investigate or prosecute any alcohol or drug abuse patient.[facility] HospitalIn the event this information is protected by the Federal Confidentiality of Alcohol and Drug Abuse Patient Records regulations: The Federal rules restrict any use of the information to criminally investigate or prosecute any alcohol or drug abuse patient.[facility] HospitalIn the event this information is protected by the Federal Confidentiality of Alcohol and Drug Abuse Patient Records regulations: The Federal rules restrict any use of the information to criminally investigate or prosecute any alcohol or drug abuse patient.[facility] HospitalIn the event this information is protected by the Federal Confidentiality of Alcohol and Drug Abuse Patient Records regulations: The Federal rules restrict any use of the information to criminally investigate or prosecute any alcohol or drug abuse patient.[facility] HospitalIn the event this information is protected by the Federal Confidentiality of Alcohol and Drug Abuse Patient Records regulations: The Federal rules restrict any use of the information to criminally investigate or prosecute any alcohol or drug abuse patient.[facility] HospitalIn the event this information is protected by the Federal Confidentiality of Alcohol and Drug Abuse Patient Records regulations: The Federal rules restrict any use of the information to criminally investigate or prosecute any alcohol or drug abuse patient.[facility] HospitalIn the event this information is protected by the Federal Confidentiality of Alcohol and Drug Abuse Patient Records regulations: The Federal rules restrict any use of the information to criminally investigate or prosecute any alcohol or drug abuse patient.[facility] HospitalIn the event this information is protected by the Federal Confidentiality of Alcohol and Drug Abuse Patient Records regulations: The Federal rules restrict any use of the information to criminally investigate or prosecute any alcohol or drug abuse patient.[facility] HospitalIn the event this information is protected by the Federal Confidentiality of Alcohol and Drug Abuse Patient Records regulations: The Federal rules restrict any use of the information to criminally investigate or prosecute any alcohol or drug abuse patient.[facility] HospitalIn the event this information is protected by the Federal Confidentiality of Alcohol and Drug Abuse Patient Records regulations: The Federal rules restrict any use of the information to criminally investigate or prosecute any alcohol or drug abuse patient.[facility] HospitalIn the event this information is protected by the Federal Confidentiality of Alcohol and Drug Abuse Patient Records regulations: The Federal rules restrict any use of the information to criminally investigate or prosecute any alcohol or drug abuse patient.[facility] HospitalIn the event this information is protected by the Federal Confidentiality of Alcohol and Drug Abuse Patient Records regulations: The Federal rules restrict any use of the information to criminally investigate or prosecute any alcohol or drug abuse patient.[facility] HospitalIn the event this information is protected by the Federal Confidentiality of Alcohol and Drug Abuse Patient Records regulations: The Federal rules restrict any use of the information to criminally investigate or prosecute any alcohol or drug abuse patient.[facility] HospitalIn the event this information is protected by the Federal Confidentiality of Alcohol and Drug Abuse Patient Records regulations: The Federal rules restrict any use of the information to criminally investigate or prosecute any alcohol or drug abuse patient.[facility] HospitalIn the event this information is protected by the Federal Confidentiality of Alcohol and Drug Abuse Patient Records regulations: The Federal rules restrict any use of the information to criminally investigate or prosecute any alcohol or drug abuse patient.[facility] HospitalIn the event this information is protected by the Federal Confidentiality of Alcohol and Drug Abuse Patient Records regulations: The Federal rules restrict any use of the information to criminally investigate or prosecute any alcohol or drug abuse patient.[facility] HospitalIn the event this information is protected by the Federal Confidentiality of Alcohol and Drug Abuse Patient Records regulations: The Federal rules restrict any use of the information to criminally investigate or prosecute any alcohol or drug abuse patient.[facility] HospitalIn the event this information is protected by the Federal Confidentiality of Alcohol and Drug Abuse Patient Records regulations: The Federal rules restrict any use of the information to criminally investigate or prosecute any alcohol or drug abuse patient.[facility] HospitalIn the event this information is protected by the Federal Confidentiality of Alcohol and Drug Abuse Patient Records regulations: The Federal rules restrict any use of the information to criminally investigate or prosecute any alcohol or drug abuse patient.[facility] HospitalIn the event this information is protected by the Federal Confidentiality of Alcohol and Drug Abuse Patient Records regulations: The Federal rules restrict any use of the information to criminally investigate or prosecute any alcohol or drug abuse patient.[facility] HospitalIn the event this information is protected by the Federal Confidentiality of Alcohol and Drug Abuse Patient Records regulations: The Federal rules restrict any use of the information to criminally investigate or prosecute any alcohol or drug abuse patient.[facility] HospitalIn the event this information is protected by the Federal Confidentiality of Alcohol and Drug Abuse Patient Records regulations: The Federal rules restrict any use of the information to criminally investigate or prosecute any alcohol or drug abuse patient.[facility] HospitalIn the event this information is protected by the Federal Confidentiality of Alcohol and Drug Abuse Patient Records regulations: The Federal rules restrict any use of the information to criminally investigate or prosecute any alcohol or drug abuse patient.[facility] HospitalIn the event this information is protected by the Federal Confidentiality of Alcohol and Drug Abuse Patient Records regulations: The Federal rules restrict any use of the information to criminally investigate or prosecute any alcohol or drug abuse patient.[facility] HospitalIn the event this information is protected by the Federal Confidentiality of Alcohol and Drug Abuse Patient Records regulations: The Federal rules restrict any use of the information to criminally investigate or prosecute any alcohol or drug abuse patient.[facility] HospitalIn the event this information is protected by the Federal Confidentiality of Alcohol and Drug Abuse Patient Records regulations: The Federal rules restrict any use of the information to criminally investigate or prosecute any alcohol or drug abuse patient.[facility] HospitalIn the event this information is protected by the Federal Confidentiality of Alcohol and Drug Abuse Patient Records regulations: The Federal rules restrict any use of the information to criminally investigate or prosecute any alcohol or drug abuse patient.[facility] HospitalIn the event this information is protected by the Federal Confidentiality of Alcohol and Drug Abuse Patient Records regulations: The Federal rules restrict any use of the information to criminally investigate or prosecute any alcohol or drug abuse patient.[facility] HospitalIn the event this information is protected by the Federal Confidentiality of Alcohol and Drug Abuse Patient Records regulations: The Federal rules restrict any use of the information to criminally investigate or prosecute any alcohol or drug abuse patient.[facility] HospitalIn the event this information is protected by the Federal Confidentiality of Alcohol and Drug Abuse Patient Records regulations: The Federal rules restrict any use of the information to criminally investigate or prosecute any alcohol or drug abuse patient.[facility] HospitalIn the event this information is protected by the Federal Confidentiality of Alcohol and Drug Abuse Patient Records regulations: The Federal rules restrict any use of the information to criminally investigate or prosecute any alcohol or drug abuse patient.[facility] HospitalIn the event this information is protected by the Federal Confidentiality of Alcohol and Drug Abuse Patient Records regulations: The Federal rules restrict any use of the information to criminally investigate or prosecute any alcohol or drug abuse patient.[facility] HospitalIn the event this information is protected by the Federal Confidentiality of Alcohol and Drug Abuse Patient Records regulations: The Federal rules restrict any use of the information to criminally investigate or prosecute any alcohol or drug abuse patient.[facility] HospitalIn the event this information is protected by the Federal Confidentiality of Alcohol and Drug Abuse Patient Records regulations: The Federal rules restrict any use of the information to criminally investigate or prosecute any alcohol or drug abuse patient.[facility] HospitalIn the event this information is protected by the Federal Confidentiality of Alcohol and Drug Abuse Patient Records regulations: The Federal rules restrict any use of the information to criminally investigate or prosecute any alcohol or drug abuse patient.[facility] HospitalIn the event this information is protected by the Federal Confidentiality of Alcohol and Drug Abuse Patient Records regulations: The Federal rules restrict any use of the information to criminally investigate or prosecute any alcohol or drug abuse patient.[facility] HospitalIn the event this information is protected by the Federal Confidentiality of Alcohol and Drug Abuse Patient Records regulations: The Federal rules restrict any use of the information to criminally investigate or prosecute any alcohol or drug abuse patient.[facility] HospitalIn the event this information is protected by the Federal Confidentiality of Alcohol and Drug Abuse Patient Records regulations: The Federal rules restrict any use of the information to criminally investigate or prosecute any alcohol or drug abuse patient.[facility] HospitalIn the event this information is protected by the Federal Confidentiality of Alcohol and Drug Abuse Patient Records regulations: The Federal rules restrict any use of the information to criminally investigate or prosecute any alcohol or drug abuse patient.[facility] HospitalIn the event this information is protected by the Federal Confidentiality of Alcohol and Drug Abuse Patient Records regulations: The Federal rules restrict any use of the information to criminally investigate or prosecute any alcohol or drug abuse patient.[facility] HospitalIn the event this information is protected by the Federal Confidentiality of Alcohol and Drug Abuse Patient Records regulations: The Federal rules restrict any use of the information to criminally investigate or prosecute any alcohol or drug abuse patient.[facility] HospitalIn the event this information is protected by the Federal Confidentiality of Alcohol and Drug Abuse Patient Records regulations: The Federal rules restrict any use of the information to criminally investigate or prosecute any alcohol or drug abuse patient.[facility] HospitalIn the event this information is protected by the Federal Confidentiality of Alcohol and Drug Abuse Patient Records regulations: The Federal rules restrict any use of the information to criminally investigate or prosecute any alcohol or drug abuse patient.[facility] HospitalIn the event this information is protected by the Federal Confidentiality of Alcohol and Drug Abuse Patient Records regulations: The Federal rules restrict any use of the information to criminally investigate or prosecute any alcohol or drug abuse patient.[facility] HospitalIn the event this information is protected by the Federal Confidentiality of Alcohol and Drug Abuse Patient Records regulations: The Federal rules restrict any use of the information to criminally investigate or prosecute any alcohol or drug abuse patient.[facility] HospitalIn the event this information is protected by the Federal Confidentiality of Alcohol and Drug Abuse Patient Records regulations: The Federal rules restrict any use of the information to criminally investigate or prosecute any alcohol or drug abuse patient.[facility] HospitalIn the event this information is protected by the Federal Confidentiality of Alcohol and Drug Abuse Patient Records regulations: The Federal rules restrict any use of the information to criminally investigate or prosecute any alcohol or drug abuse patient.[facility] HospitalIn the event this information is protected by the Federal Confidentiality of Alcohol and Drug Abuse Patient Records regulations: The Federal rules restrict any use of the information to criminally investigate or prosecute any alcohol or drug abuse patient.[facility] HospitalIn the event this information is protected by the Federal Confidentiality of Alcohol and Drug Abuse Patient Records regulations: The Federal rules restrict any use of the information to criminally investigate or prosecute any alcohol or drug abuse patient.[facility] HospitalIn the event this information is protected by the Federal Confidentiality of Alcohol and Drug Abuse Patient Records regulations: The Federal rules restrict any use of the information to criminally investigate or prosecute any alcohol or drug abuse patient.[facility] HospitalIn the event this information is protected by the Federal Confidentiality of Alcohol and Drug Abuse Patient Records regulations: The Federal rules restrict any use of the information to criminally investigate or prosecute any alcohol or drug abuse patient.[facility] HospitalIn the event this information is protected by the Federal Confidentiality of Alcohol and Drug Abuse Patient Records regulations: The Federal rules restrict any use of the information to criminally investigate or prosecute any alcohol or drug abuse patient.[facility] HospitalIn the event this information is protected by the Federal Confidentiality of Alcohol and Drug Abuse Patient Records regulations: The Federal rules restrict any use of the information to criminally investigate or prosecute any alcohol or drug abuse patient.[facility] HospitalIn the event this information is protected by the Federal Confidentiality of Alcohol and Drug Abuse Patient Records regulations: The Federal rules restrict any use of the information to criminally investigate or prosecute any alcohol or drug abuse patient.[facility] HospitalIn the event this information is protected by the Federal Confidentiality of Alcohol and Drug Abuse Patient Records regulations: The Federal rules restrict any use of the information to criminally investigate or prosecute any alcohol or drug abuse patient.[facility] HospitalIn the event this information is protected by the Federal Confidentiality of Alcohol and Drug Abuse Patient Records regulations: The Federal rules restrict any use of the information to criminally investigate or prosecute any alcohol or drug abuse patient.[facility] HospitalIn the event this information is protected by the Federal Confidentiality of Alcohol and Drug Abuse Patient Records regulations: The Federal rules restrict any use of the information to criminally investigate or prosecute any alcohol or drug abuse patient.[facility] HospitalIn the event this information is protected by the Federal Confidentiality of Alcohol and Drug Abuse Patient Records regulations: The Federal rules restrict any use of the information to criminally investigate or prosecute any alcohol or drug abuse patient.[facility] HospitalIn the event this information is protected by the Federal Confidentiality of Alcohol and Drug Abuse Patient Records regulations: The Federal rules restrict any use of the information to criminally investigate or prosecute any alcohol or drug abuse patient.[facility] HospitalIn the event this information is protected by the Federal Confidentiality of Alcohol and Drug Abuse Patient Records regulations: The Federal rules restrict any use of the information to criminally investigate or prosecute any alcohol or drug abuse patient.[facility] HospitalIn the event this information is protected by the Federal Confidentiality of Alcohol and Drug Abuse Patient Records regulations: The Federal rules restrict any use of the information to criminally investigate or prosecute any alcohol or drug abuse patient.[facility] HospitalIn the event this information is protected by the Federal Confidentiality of Alcohol and Drug Abuse Patient Records regulations: The Federal rules restrict any use of the information to criminally investigate or prosecute any alcohol or drug abuse patient.[facility] HospitalIn the event this information is protected by the Federal Confidentiality of Alcohol and Drug Abuse Patient Records regulations: The Federal rules restrict any use of the information to criminally investigate or prosecute any alcohol or drug abuse patient.[facility] HospitalIn the event this information is protected by the Federal Confidentiality of Alcohol and Drug Abuse Patient Records regulations: The Federal rules restrict any use of the information to criminally investigate or prosecute any alcohol or drug abuse patient.[facility] HospitalIn the event this information is protected by the Federal Confidentiality of Alcohol and Drug Abuse Patient Records regulations: The Federal rules restrict any use of the information to criminally investigate or prosecute any alcohol or drug abuse patient.[facility] HospitalIn the event this information is protected by the Federal Confidentiality of Alcohol and Drug Abuse Patient Records regulations: The Federal rules restrict any use of the information to criminally investigate or prosecute any alcohol or drug abuse patient.[facility] HospitalIn the event this information is protected by the Federal Confidentiality of Alcohol and Drug Abuse Patient Records regulations: The Federal rules restrict any use of the information to criminally investigate or prosecute any alcohol or drug abuse patient.[facility] HospitalIn the event this information is protected by the Federal Confidentiality of Alcohol and Drug Abuse Patient Records regulations: The Federal rules restrict any use of the information to criminally investigate or prosecute any alcohol or drug abuse patient.[facility] HospitalIn the event this information is protected by the Federal Confidentiality of Alcohol and Drug Abuse Patient Records regulations: The Federal rules restrict any use of the information to criminally investigate or prosecute any alcohol or drug abuse patient.[facility] HospitalIn the event this information is protected by the Federal Confidentiality of Alcohol and Drug Abuse Patient Records regulations: The Federal rules restrict any use of the information to criminally investigate or prosecute any alcohol or drug abuse patient.[facility] HospitalIn the event this information is protected by the Federal Confidentiality of Alcohol and Drug Abuse Patient Records regulations: The Federal rules restrict any use of the information to criminally investigate or prosecute any alcohol or drug abuse patient.[facility] HospitalIn the event this information is protected by the Federal Confidentiality of Alcohol and Drug Abuse Patient Records regulations: The Federal rules restrict any use of the information to criminally investigate or prosecute any alcohol or drug abuse patient.[facility] HospitalIn the event this information is protected by the Federal Confidentiality of Alcohol and Drug Abuse Patient Records regulations: The Federal rules restrict any use of the information to criminally investigate or prosecute any alcohol or drug abuse patient.[facility] HospitalIn the event this information is protected by the Federal Confidentiality of Alcohol and Drug Abuse Patient Records regulations: The Federal rules restrict any use of the information to criminally investigate or prosecute any alcohol or drug abuse patient.[facility] HospitalIn the event this information is protected by the Federal Confidentiality of Alcohol and Drug Abuse Patient Records regulations: The Federal rules restrict any use of the information to criminally investigate or prosecute any alcohol or drug abuse patient.[facility] HospitalIn the event this information is protected by the Federal Confidentiality of Alcohol and Drug Abuse Patient Records regulations: The Federal rules restrict any use of the information to criminally investigate or prosecute any alcohol or drug abuse patient.[facility] HospitalIn the event this information is protected by the Federal Confidentiality of Alcohol and Drug Abuse Patient Records regulations: The Federal rules restrict any use of the information to criminally investigate or prosecute any alcohol or drug abuse patient.[facility] HospitalIn the event this information is protected by the Federal Confidentiality of Alcohol and Drug Abuse Patient Records regulations: The Federal rules restrict any use of the information to criminally investigate or prosecute any alcohol or drug abuse patient.[facility] HospitalIn the event this information is protected by the Federal Confidentiality of Alcohol and Drug Abuse Patient Records regulations: The Federal rules restrict any use of the information to criminally investigate or prosecute any alcohol or drug abuse patient.[facility] HospitalIn the event this information is protected by the Federal Confidentiality of Alcohol and Drug Abuse Patient Records regulations: The Federal rules restrict any use of the information to criminally investigate or prosecute any alcohol or drug abuse patient.[facility] HospitalIn the event this information is protected by the Federal Confidentiality of Alcohol and Drug Abuse Patient Records regulations: The Federal rules restrict any use of the information to criminally investigate or prosecute any alcohol or drug abuse patient.[facility] HospitalIn the event this information is protected by the Federal Confidentiality of Alcohol and Drug Abuse Patient Records regulations: The Federal rules restrict any use of the information to criminally investigate or prosecute any alcohol or drug abuse patient.[facility] HospitalIn the event this information is protected by the Federal Confidentiality of Alcohol and Drug Abuse Patient Records regulations: The Federal rules restrict any use of the information to criminally investigate or prosecute any alcohol or drug abuse patient.[facility] HospitalIn the event this information is protected by the Federal Confidentiality of Alcohol and Drug Abuse Patient Records regulations: The Federal rules restrict any use of the information to criminally investigate or prosecute any alcohol or drug abuse patient.[facility] HospitalIn the event this information is protected by the Federal Confidentiality of Alcohol and Drug Abuse Patient Records regulations: The Federal rules restrict any use of the information to criminally investigate or prosecute any alcohol or drug abuse patient.[facility] HospitalIn the event this information is protected by the Federal Confidentiality of Alcohol and Drug Abuse Patient Records regulations: The Federal rules restrict any use of the information to criminally investigate or prosecute any alcohol or drug abuse patient.[facility] HospitalIn the event this information is protected by the Federal Confidentiality of Alcohol and Drug Abuse Patient Records regulations: The Federal rules restrict any use of the information to criminally investigate or prosecute any alcohol or drug abuse patient.[facility] HospitalIn the event this information is protected by the Federal Confidentiality of Alcohol and Drug Abuse Patient Records regulations: The Federal rules restrict any use of the information to criminally investigate or prosecute any alcohol or drug abuse patient.[facility] HospitalIn the event this information is protected by the Federal Confidentiality of Alcohol and Drug Abuse Patient Records regulations: The Federal rules restrict any use of the information to criminally investigate or prosecute any alcohol or drug abuse patient.[facility] HospitalIn the event this information is protected by the Federal Confidentiality of Alcohol and Drug Abuse Patient Records regulations: The Federal rules restrict any use of the information to criminally investigate or prosecute any alcohol or drug abuse patient.[facility] HospitalIn the event this information is protected by the Federal Confidentiality of Alcohol and Drug Abuse Patient Records regulations: The Federal rules restrict any use of the information to criminally investigate or prosecute any alcohol or drug abuse patient.[facility] HospitalIn the event this information is protected by the Federal Confidentiality of Alcohol and Drug Abuse Patient Records regulations: The Federal rules restrict any use of the information to criminally investigate or prosecute any alcohol or drug abuse patient.[facility] HospitalIn the event this information is protected by the Federal Confidentiality of Alcohol and Drug Abuse Patient Records regulations: The Federal rules restrict any use of the information to criminally investigate or prosecute any alcohol or drug abuse patient.[facility] HospitalIn the event this information is protected by the Federal Confidentiality of Alcohol and Drug Abuse Patient Records regulations: The Federal rules restrict any use of the information to criminally investigate or prosecute any alcohol or drug abuse patient.[facility] HospitalIn the event this information is protected by the Federal Confidentiality of Alcohol and Drug Abuse Patient Records regulations: The Federal rules restrict any use of the information to criminally investigate or prosecute any alcohol or drug abuse patient.[facility] HospitalIn the event this information is protected by the Federal Confidentiality of Alcohol and Drug Abuse Patient Records regulations: The Federal rules restrict any use of the information to criminally investigate or prosecute any alcohol or drug abuse patient.[facility] HospitalIn the event this information is protected by the Federal Confidentiality of Alcohol and Drug Abuse Patient Records regulations: The Federal rules restrict any use of the information to criminally investigate or prosecute any alcohol or drug abuse patient.[facility] HospitalIn the event this information is protected by the Federal Confidentiality of Alcohol and Drug Abuse Patient Records regulations: The Federal rules restrict any use of the information to criminally investigate or prosecute any alcohol or drug abuse patient.[facility] HospitalIn the event this information is protected by the Federal Confidentiality of Alcohol and Drug Abuse Patient Records regulations: The Federal rules restrict any use of the information to criminally investigate or prosecute any alcohol or drug abuse patient.[facility] HospitalIn the event this information is protected by the Federal Confidentiality of Alcohol and Drug Abuse Patient Records regulations: The Federal rules restrict any use of the information to criminally investigate or prosecute any alcohol or drug abuse patient.[facility] HospitalIn the event this information is protected by the Federal Confidentiality of Alcohol and Drug Abuse Patient Records regulations: The Federal rules restrict any use of the information to criminally investigate or prosecute any alcohol or drug abuse patient.[facility] HospitalIn the event this information is protected by the Federal Confidentiality of Alcohol and Drug Abuse Patient Records regulations: The Federal rules restrict any use of the information to criminally investigate or prosecute any alcohol or drug abuse patient.[facility] HospitalIn the event this information is protected by the Federal Confidentiality of Alcohol and Drug Abuse Patient Records regulations: The Federal rules restrict any use of the information to criminally investigate or prosecute any alcohol or drug abuse patient.[facility] HospitalIn the event this information is protected by the Federal Confidentiality of Alcohol and Drug Abuse Patient Records regulations: The Federal rules restrict any use of the information to criminally investigate or prosecute any alcohol or drug abuse patient.[facility] HospitalIn the event this information is protected by the Federal Confidentiality of Alcohol and Drug Abuse Patient Records regulations: The Federal rules restrict any use of the information to criminally investigate or prosecute any alcohol or drug abuse patient.[facility] HospitalIn the event this information is protected by the Federal Confidentiality of Alcohol and Drug Abuse Patient Records regulations: The Federal rules restrict any use of the information to criminally investigate or prosecute any alcohol or drug abuse patient.[facility] HospitalIn the event this information is protected by the Federal Confidentiality of Alcohol and Drug Abuse Patient Records regulations: The Federal rules restrict any use of the information to criminally investigate or prosecute any alcohol or drug abuse patient.[facility] HospitalIn the event this information is protected by the Federal Confidentiality of Alcohol and Drug Abuse Patient Records regulations: The Federal rules restrict any use of the information to criminally investigate or prosecute any alcohol or drug abuse patient.[facility] HospitalIn the event this information is protected by the Federal Confidentiality of Alcohol and Drug Abuse Patient Records regulations: The Federal rules restrict any use of the information to criminally investigate or prosecute any alcohol or drug abuse patient.[facility] HospitalIn the event this information is protected by the Federal Confidentiality of Alcohol and Drug Abuse Patient Records regulations: The Federal rules restrict any use of the information to criminally investigate or prosecute any alcohol or drug abuse patient.[facility] HospitalIn the event this information is protected by the Federal Confidentiality of Alcohol and Drug Abuse Patient Records regulations: The Federal rules restrict any use of the information to criminally investigate or prosecute any alcohol or drug abuse patient.[facility] HospitalIn the event this information is protected by the Federal Confidentiality of Alcohol and Drug Abuse Patient Records regulations: The Federal rules restrict any use of the information to criminally investigate or prosecute any alcohol or drug abuse patient.[facility] HospitalIn the event this information is protected by the Federal Confidentiality of Alcohol and Drug Abuse Patient Records regulations: The Federal rules restrict any use of the information to criminally investigate or prosecute any alcohol or drug abuse patient.[facility] HospitalIn the event this information is protected by the Federal Confidentiality of Alcohol and Drug Abuse Patient Records regulations: The Federal rules restrict any use of the information to criminally investigate or prosecute any alcohol or drug abuse patient.[facility] HospitalIn the event this information is protected by the Federal Confidentiality of Alcohol and Drug Abuse Patient Records regulations: The Federal rules restrict any use of the information to criminally investigate or prosecute any alcohol or drug abuse patient.[facility] HospitalIn the event this information is protected by the Federal Confidentiality of Alcohol and Drug Abuse Patient Records regulations: The Federal rules restrict any use of the information to criminally investigate or prosecute any alcohol or drug abuse patient.[facility] HospitalIn the event this information is protected by the Federal Confidentiality of Alcohol and Drug Abuse Patient Records regulations: The Federal rules restrict any use of the information to criminally investigate or prosecute any alcohol or drug abuse patient.[facility] HospitalIn the event this information is protected by the Federal Confidentiality of Alcohol and Drug Abuse Patient Records regulations: The Federal rules restrict any use of the information to criminally investigate or prosecute any alcohol or drug abuse patient.[facility] HospitalIn the event this information is protected by the Federal Confidentiality of Alcohol and Drug Abuse Patient Records regulations: The Federal rules restrict any use of the information to criminally investigate or prosecute any alcohol or drug abuse patient.[facility] HospitalIn the event this information is protected by the Federal Confidentiality of Alcohol and Drug Abuse Patient Records regulations: The Federal rules restrict any use of the information to criminally investigate or prosecute any alcohol or drug abuse patient.[facility] HospitalIn the event this information is protected by the Federal Confidentiality of Alcohol and Drug Abuse Patient Records regulations: The Federal rules restrict any use of the information to criminally investigate or prosecute any alcohol or drug abuse patient.[facility] HospitalIn the event this information is protected by the Federal Confidentiality of Alcohol and Drug Abuse Patient Records regulations: The Federal rules restrict any use of the information to criminally investigate or prosecute any alcohol or drug abuse patient.[facility] HospitalIn the event this information is protected by the Federal Confidentiality of Alcohol and Drug Abuse Patient Records regulations: The Federal rules restrict any use of the information to criminally investigate or prosecute any alcohol or drug abuse patient.[facility] HospitalIn the event this information is protected by the Federal Confidentiality of Alcohol and Drug Abuse Patient Records regulations: The Federal rules restrict any use of the information to criminally investigate or prosecute any alcohol or drug abuse patient.[facility] HospitalIn the event this information is protected by the Federal Confidentiality of Alcohol and Drug Abuse Patient Records regulations: The Federal rules restrict any use of the information to criminally investigate or prosecute any alcohol or drug abuse patient.[facility] HospitalIn the event this information is protected by the Federal Confidentiality of Alcohol and Drug Abuse Patient Records regulations: The Federal rules restrict any use of the information to criminally investigate or prosecute any alcohol or drug abuse patient.[facility] HospitalIn the event this information is protected by the Federal Confidentiality of Alcohol and Drug Abuse Patient Records regulations: The Federal rules restrict any use of the information to criminally investigate or prosecute any alcohol or drug abuse patient.[facility] HospitalIn the event this information is protected by the Federal Confidentiality of Alcohol and Drug Abuse Patient Records regulations: The Federal rules restrict any use of the information to criminally investigate or prosecute any alcohol or drug abuse patient.[facility] HospitalIn the event this information is protected by the Federal Confidentiality of Alcohol and Drug Abuse Patient Records regulations: The Federal rules restrict any use of the information to criminally investigate or prosecute any alcohol or drug abuse patient.[facility] HospitalIn the event this information is protected by the Federal Confidentiality of Alcohol and Drug Abuse Patient Records regulations: The Federal rules restrict any use of the information to criminally investigate or prosecute any alcohol or drug abuse patient.[facility] HospitalIn the event this information is protected by the Federal Confidentiality of Alcohol and Drug Abuse Patient Records regulations: The Federal rules restrict any use of the information to criminally investigate or prosecute any alcohol or drug abuse patient.[facility] HospitalIn the event this information is protected by the Federal Confidentiality of Alcohol and Drug Abuse Patient Records regulations: The Federal rules restrict any use of the information to criminally investigate or prosecute any alcohol or drug abuse patient.[facility] HospitalIn the event this information is protected by the Federal Confidentiality of Alcohol and Drug Abuse Patient Records regulations: The Federal rules restrict any use of the information to criminally investigate or prosecute any alcohol or drug abuse patient.[facility] HospitalIn the event this information is protected by the Federal Confidentiality of Alcohol and Drug Abuse Patient Records regulations: The Federal rules restrict any use of the information to criminally investigate or prosecute any alcohol or drug abuse patient.[facility] HospitalIn the event this information is protected by the Federal Confidentiality of Alcohol and Drug Abuse Patient Records regulations: The Federal rules restrict any use of the information to criminally investigate or prosecute any alcohol or drug abuse patient.[facility] HospitalIn the event this information is protected by the Federal Confidentiality of Alcohol and Drug Abuse Patient Records regulations: The Federal rules restrict any use of the information to criminally investigate or prosecute any alcohol or drug abuse patient.[facility] HospitalIn the event this information is protected by the Federal Confidentiality of Alcohol and Drug Abuse Patient Records regulations: The Federal rules restrict any use of the information to criminally investigate or prosecute any alcohol or drug abuse patient.[facility] HospitalIn the event this information is protected by the Federal Confidentiality of Alcohol and Drug Abuse Patient Records regulations: The Federal rules restrict any use of the information to criminally investigate or prosecute any alcohol or drug abuse patient.[facility] HospitalIn the event this information is protected by the Federal Confidentiality of Alcohol and Drug Abuse Patient Records regulations: The Federal rules restrict any use of the information to criminally investigate or prosecute any alcohol or drug abuse patient.[facility] HospitalIn the event this information is protected by the Federal Confidentiality of Alcohol and Drug Abuse Patient Records regulations: The Federal rules restrict any use of the information to criminally investigate or prosecute any alcohol or drug abuse patient.[facility] HospitalIn the event this information is protected by the Federal Confidentiality of Alcohol and Drug Abuse Patient Records regulations: The Federal rules restrict any use of the information to criminally investigate or prosecute any alcohol or drug abuse patient.[facility] HospitalIn the event this information is protected by the Federal Confidentiality of Alcohol and Drug Abuse Patient Records regulations: The Federal rules restrict any use of the information to criminally investigate or prosecute any alcohol or drug abuse patient.[facility] HospitalIn the event this information is protected by the Federal Confidentiality of Alcohol and Drug Abuse Patient Records regulations: The Federal rules restrict any use of the information to criminally investigate or prosecute any alcohol or drug abuse patient.[facility] HospitalIn the event this information is protected by the Federal Confidentiality of Alcohol and Drug Abuse Patient Records regulations: The Federal rules restrict any use of the information to criminally investigate or prosecute any alcohol or drug abuse patient.[facility] HospitalIn the event this information is protected by the Federal Confidentiality of Alcohol and Drug Abuse Patient Records regulations: The Federal rules restrict any use of the information to criminally investigate or prosecute any alcohol or drug abuse patient.[facility] HospitalIn the event this information is protected by the Federal Confidentiality of Alcohol and Drug Abuse Patient Records regulations: The Federal rules restrict any use of the information to criminally investigate or prosecute any alcohol or drug abuse patient.[facility] HospitalIn the event this information is protected by the Federal Confidentiality of Alcohol and Drug Abuse Patient Records regulations: The Federal rules restrict any use of the information to criminally investigate or prosecute any alcohol or drug abuse patient.[facility] HospitalIn the event this information is protected by the Federal Confidentiality of Alcohol and Drug Abuse Patient Records regulations: The Federal rules restrict any use of the information to criminally investigate or prosecute any alcohol or drug abuse patient.[facility] HospitalIn the event this information is protected by the Federal Confidentiality of Alcohol and Drug Abuse Patient Records regulations: The Federal rules restrict any use of the information to criminally investigate or prosecute any alcohol or drug abuse patient.[facility] (unrecognized sec tion and content) Lecturer In Marketing Relationship Specialty Start Date End Date Israel Pruitt DO [address] [place] [address] PCP - General Internal Medicine 11/10/19 Laron Arreola [address] [place] [address] Orthopedics 11/22/20 Lecturer In Marketing Relationship Specialty Start Date End Date Israel Pruitt DO [address] [place] [address] PCP - General Internal Medicine 11/10/19 Laron Arreola [address] [place] [address] Orthopedics 11/22/20 Lecturer In Marketing Relationship Specialty Start Date End Date Israel Pruitt DO [address] [place] [address] PCP - General Internal Medicine 11/10/19 Laron Arreola [address] [place] [address] Orthopedics 11/22/20 Lecturer In Marketing Relationship Specialty Start Date End Date Israel Pruitt DO [address] [place] [address] PCP - General Internal Medicine 11/10/19 Laron Arreola [address] [place] [address] Orthopedics 11/22/20 Lecturer In Marketing Relationship Specialty Start Date End Date Israel Pruitt DO [address] [place] [address] PCP - General Internal Medicine 11/10/19 Laron Arreola [address] [place] [address] Orthopedics 11/22/20 Israel Minor MD [address] [facility] [address] Cardiology 02/27/22 Lecturer In Marketing Relationship Specialty Start Date End Date Israel Pruitt DO [address] [place] [address] PCP - General Internal Medicine 11/10/19 Laron Arreola [address] [facility] [address] [place] [address] Orthopedics 11/22/20 Israel Minor MD [address] [place] [facility] [address] Cardiology 02/27/22 Lecturer In Marketing Relationship Specialty Start Date End Date Israel Pruitt, DO [address] [place] [address] PCP - General Internal Medicine 11/10/19 Laron Arreola [address] [facility] [address] [place] [address] Orthopedics 11/22/20 Israel Minor MD [address] [place] [facility] [address] Cardiology 02/27/22 Lecturer In Marketing Relationship Specialty Start Date End Date Israel Pruitt DO [address] [place] [address] PCP - General Internal Medicine 11/10/19 Laron Arreola [address] [place] [address] Orthopedics 11/22/20 Israel Minor MD [address] [facility] [address] Cardiology 02/27/22 Lecturer In Marketing Relationship Specialty Start Date End Date Israel Pruitt DO [address] [place] [address] PCP - General Internal Medicine 11/10/19 Laron Arreola [address] [place] [address] Orthopedics 11/22/20 Israel Minor MD [address] [place] [address] Cardiology 02/27/22 Lecturer In Marketing Relationship Specialty Start Date End Date Israel Pruitt DO [address] [place] [address] PCP - General Internal Medicine 11/10/19 Laron Arreola [address] [facility] [address] [place] [address] Orthopedics 11/22/20 Israel Minor MD [address] [place] [address] Cardiology 02/27/22 Lecturer In Marketing Relationship Specialty Start Date End Date Israel Pruitt DO [address] [place] [address] PCP - General Internal Medicine 11/10/19 Laron Arreola [address] [place] [address] Orthopedics 11/22/20 Israel Minor MD [address] [place] [facility] [address] Cardiology 02/27/22 Lecturer In Marketing Relationship Specialty Start Date End Date Israel Pruitt, DO [address] [place] [address] PCP - General Internal Medicine 11/10/19 Laron Arreola [address] [place] [address] Orthopedics 11/22/20 Israel Minor MD [address] [place] [facility] [address] Cardiology 02/27/22 Lecturer In Marketing Relationship Specialty Start Date End Date Israel Pruitt, DO [address] [place] [address] PCP - General Internal Medicine 11/10/19 Laron Arreola [address] [place] [address] Orthopedics 11/22/20 Israel Minor MD [address] [place] [facility] [address] Cardiology 02/27/22 Lecturer In Marketing Relationship Specialty Start Date End Date Israel Pruitt, DO [address] [place] [address] PCP - General Internal Medicine 11/10/19 Laron Arreola [address] [place] [address] Orthopedics 11/22/20 Israel Minor MD [address] [facility] [place] [address] Cardiology 02/27/22 Lecturer In Marketing Relationship Specialty Start Date End Date Israel Pruitt DO [address] [place] [address] PCP - General Internal Medicine 11/10/19 Laron Arreola [address] [place] [address] Orthopedics 11/22/20 Israel Minor MD [address] [place] [facility] [address] Cardiology 02/27/22 Lecturer In Marketing Relationship Specialty Start Date End Date Edmond Israel Hamzah, DO [address] [place] [address] PCP - General Internal Medicine 11/10/19 Laron Arreola [address] [place] [address] Orthopedics 11/22/20 Israel Minor MD [address] [place] [facility] [address] Cardiology 02/27/22 Lecturer In Marketing Relationship Specialty Start Date End Date Zabrinarenata Israel Hamzah, DO [address] [place] [address] PCP - General Internal Medicine 11/10/19 Laron Arreola [address] [place] [address] Orthopedics 11/22/20 Israel Minor MD [address] [facility] [address] Cardiology 02/27/22 Lecturer In Marketing Relationship Specialty Start Date End Date Israel Pruitt, DO [address] [place] [address] PCP - General Internal Medicine 11/10/19 Laron Arreola [address] [place] [address] Orthopedics 11/22/20 Israel Minor MD [address] [place] [facility] [address] Cardiology 02/27/22 Lecturer In Marketing Relationship Specialty Start Date End Date Israel Pruitt DO [address] [place] [address] PCP - General Internal Medicine 11/10/19 Laron Arreola [address] [place] [address] Orthopedics 11/22/20 Israel Minor MD [address] [facility] [address] Cardiology 02/27/22 Lecturer In Marketing Relationship Specialty Start Date End Date Israel Pruitt DO [address] [place] [address] PCP - General Internal Medicine 11/10/19 Laron Arreola [address] [place] [address] Orthopedics 11/22/20 Israel Minor MD [address] [place] [facility] [address] Cardiology 02/27/22 Lecturer In Marketing Relationship Specialty Start Date End Date Israel Pruitt DO [address] [place] [address] PCP - General Internal Medicine 11/10/19 Laron Arreola [address] [facility] [address] [place] [address] Orthopedics 11/22/20 Israel Minor MD [address] [place] [address] Cardiology 02/27/22 Lecturer In Marketing Relationship Specialty Start Date End Date Israel Pruitt, DO [address] [place] [address] PCP - General Internal Medicine 11/10/19 Laron Arreola [address] [facility] [address] [address] Orthopedics 11/22/20 Israel Minor MD [address] [place] [address] Cardiology 02/27/22 Lecturer In Marketing Relationship Specialty Start Date End Date Israel Pruitt DO [address] [place] [address] PCP - General Internal Medicine 11/10/19 Laron Arreola [address] [place] [address] Orthopedics 11/22/20 Israel Minor MD [address] [place] [address] Cardiology 02/27/22 Tere Wang RN [address] [place] [address] Primary Care [employer] [facility] 07/10/22 09/08/22 Lecturer In Marketing Relationship Specialty Start Date End Date Israel Pruitt DO [address] [facility] [place] [address] PCP - General Internal Medicine 11/10/19 Laron Arreola [address] [place] [address] Orthopedics 11/22/20 Israel Minor MD [address] [place], [place] 349[address] [phone] Cardiology 02/27/22 Tere Wang RN [address] [address] Primary Care [employer] [facility] 07/10/22 09/08/22 Lecturer In Marketing Relationship Specialty Start Date End Date Israel Pruitt DO [address] [place] [address] PCP - General Internal Medicine 11/10/19 Laron Arreola [address] [place] [address] Orthopedics 11/22/20 Israel Minor MD [address] [place] [address] Cardiology 02/27/22 Tere Wang RN [address] [place] [address] Primary Care [employer] [facility] 07/10/22 09/08/22 Lecturer In Marketing Relationship Specialty Start Date End Date Israel Pruitt DO [address] [place] [address] PCP - General Internal Medicine 11/10/19 Laron Arreola [address] [place] [address] Orthopedics 11/22/20 Israel Minor MD [address] [place] [facility] [address] Cardiology 02/27/22 Tere Wang, JESSY [address] [place] [address] Primary Care [facility] [facility] 07/10/22 09/08/22 Lecturer In Marketing Relationship Specialty Start Date End Date Israel Pruitt DO [address] [place] [address] PCP - General Internal Medicine 11/10/19 Laron Arreola [address] [place] [address] Orthopedics 11/22/20 Israel Minor MD [address] [place] [facility] [address] Cardiology 02/27/22 Tere Wang RN [address] [place] [address] Primary Care [employer] [facility] 07/10/22 09/08/22 Lecturer In Marketing Relationship Specialty Start Date End Date Israel Pruitt DO [address] [place] [address] PCP - General Internal Medicine 11/10/19 Laron Arreola [address] [place] [address] Orthopedics 11/22/20 Israel Minor MD [address] [place] [facility] [address] Cardiology 02/27/22 Tere Wang RN [address] [place] [address] Primary Care [employer] [facility] 07/10/22 09/08/22 Lecturer In Marketing Relationship Specialty Start Date End Date Israel Pruitt DO [address] [place] [address] PCP - General Internal Medicine 11/10/19 Laron Arreola [address] [facility] [address] [place], [place] [address] Orthopedics 11/22/20 Israel Minor MD [address] [place], [place] [id number] Cardiology 02/27/22 Tere Wang, JESSY [address] [place] [address] Primary Care [employer] [facility] 07/10/22 09/08/22 Lecturer In Marketing Relationship Specialty Start Date End Date Israel Pruitt DO [address] [place] [address] PCP - General Internal Medicine 11/10/19 Laron Arreola [address] [place] [address] Orthopedics 11/22/20 Israel Minor MD [address] [facility], [place] [address] Cardiology 02/27/22 Eveline Dean, JESSY [address] [place] [address] Desk Director 08/08/22 Lecturer In Marketing Relationship Specialty Start Date End Date Israel Pruitt DO [address] [place] [address] PCP - General Internal Medicine 11/10/19 Lraon Arreola [address] [facility] [address] [place], [place] [address] Orthopedics 11/22/20 Israel Minor MD [address] [place], [place] [address] Cardiology 02/27/22 Eveline Dean, JESSY [address] [place] [address] Desk Director 08/08/22 Lecturer In Marketing Relationship Specialty Start Date End Date ZabrinaIsrael yanez Hamzah, DO [address] [place] [address] PCP - General Internal Medicine 11/10/19 Laron Arreola [address] [facility] [address] [place], [place] [address] Orthopedics 11/22/20 Israel Minor MD [address] [place], [place] [id number] Cardiology 02/27/22 Eveline Dean RN [address] [place] [address] Desk Director 08/08/22 Lecturer In Marketing Relationship Specialty Start Date End Date EdmondIsrael Hamzah, DO [address] [place] [address] PCP - General Internal Medicine 11/10/19 Laron Arreola [address] [facility] [address] [place] [address] Orthopedics 11/22/20 Israel Minor MD [address] [place], [place] 7[address]69 [phone] Cardiology 02/27/22 Eveline Dean, JESSY [address] [place] [address] Desk Director 08/08/22 Randa Rowell DO [address] [id number] Hematology/Oncology 09/08/22 Sanket Rob, DO [address] [place] [address] Neurology 09/08/22 Lecturer In Marketing Relationship Specialty Start Date End Date Israel Pruitt, DO [address] [place] [address] PCP - General Internal Medicine 11/10/19 Laron Arreola [address] [facility] [address] [place] [address] Orthopedics 11/22/20 Israel Minor MD [address] [place], [place] 260[address] Cardiology 02/27/22 Eveline Dean, JESSY [address] [place], [place] [id number] Desk Director 08/08/22 Randa Rowell, DO [address] [facility] [address] [place], [place] [id number] Hematology/Oncology 09/08/22 Sanket Rob, DO [address] [place] [address] Neurology 09/08/22 Lecturer In Marketing Relationship Specialty Start Date End Date Israel Pruitt DO [address] [place] [address] PCP - General Internal Medicine 11/10/19 Laron Arreola [address] [place] [address] Orthopedics 11/22/20 Israel Minor MD [address] [place], [place] [id number] Cardiology 02/27/22 Eveline Dean, JESSY [address] [place] [address] Desk Director 08/08/22 Randa Rowell, [address] [place] [address] [phone] Hematology/Oncology 09/08/22 Sanket Rob, DO [address] [place] [address] Neurology 09/08/22 Lecturer In Marketing Relationship Specialty Start Date End Date Israel Pruitt DO [address] [place] [address] PCP - General Internal Medicine 11/10/19 Laron Arreola [address] [place] [phone] Orthopedics 11/22/20 Israel Minor MD [address] [place], [place] [phone] Cardiology 02/27/22 Eveline Dean, JESSY [address] [place] [address] Desk Director 08/08/22 Randa Rowell, [address] [phone] Hematology/Oncology 09/08/22 Sanket Rob, DO [address] [place] [address] Neurology 09/08/22 Lecturer In Marketing Relationship Specialty Start Date End Date Israel Pruitt DO [address] [place] [address] PCP - General Internal Medicine 11/10/19 Laron Arreola [address] [place], [place] [address] Orthopedics 11/22/20 Israel Minor MD [address] [place], [place] 175196 Cardiology 02/27/22 Eveline Dean, RN [address] [place], [place] [phone] Desk Director 08/08/22 Randa Rowell DO [facility]6 [facility] [address] [place], [place] [phone] Hematology/Oncology 09/08/22 Sanket Rob, [address] [place] [address] Neurology 09/08/22 Ten Weber, [facility] [address] [place], [place] [phone] Transitional Care Pharmacist Pharmacy 09/19/22 10/17/22 Lecturer In Marketing Relationship Specialty Start Date End Date Israel Pruitt [address] [place] [address] PCP - General Internal Medicine 11/10/19 Laron Arreola [address] [facility] [address] [place], [place] [address] Orthopedics 11/22/20 Israel Minor MD [address] [place], [place] [phone] Cardiology 02/27/22 Eveline Dean, RN [address] [place], [place] [phone] Desk Director 08/08/22 Randa Rowell DO 1945 [facility] [address] [place], [place] [address] Hematology/Oncology 09/08/22 Sanket Rob, DO [address] [place] [address] Neurology 09/08/22 Ten Weber, [facility] [address] [place], [place] [phone] Transitional Care Pharmacist Pharmacy 09/19/22 10/17/22 Lecturer In Marketing Relationship Specialty Start Date End Date Israel Pruitt DO [address] [place] [address] PCP - General Internal Medicine 11/10/19 Laron Arreola [address] [phone] Orthopedics 11/22/20 Israel Minor MD [address] [place], [place] [phone] Cardiology 02/27/22 Eveline Dean, RN [address] [place] [address] Desk Director 08/08/22 Randa Rowell DO 194 [facility] [address] [place], [place] [phone] Hematology/Oncology 09/08/22 Sanket Rob, DO [address] [place] [address] Neurology 09/08/22 Ten Weber, [facility] [address] [place] [address] Transitional Care Pharmacist Pharmacy 09/19/22 10/17/22 Lecturer In Marketing Relationship Specialty Start Date End Date Israel Pruittil, DO [address] [place] [address] PCP - General Internal Medicine 11/10/19 Laron Arreola [address] [address] Orthopedics 11/22/20 Israel Minor MD [address] [place] 574256 Cardiology 02/27/22 Eveline Dean, RN [address] [place] [address] Desk Director 08/08/22 Randa Rowell DO 1946 [facility] [address] [place], [place] [phone] Hematology/Oncology 09/08/22 Sanket Rob, [address] [place] [address] Neurology 09/08/22 Ten Weber, [facility] [address] [place] [address] Transitional Care Pharmacist Pharmacy 09/19/22 10/17/22 Lecturer In Marketing Relationship Specialty Start Date End Date Israel Pruitt, DO [address] [place] [address] PCP - General Internal Medicine 11/10/19 Laron Arreola [address] [phone] Orthopedics 11/22/20 Israel Minor MD [address] [place], [place] [phone] Cardiology 02/27/22 Eveline Dean, JESSY [address] [place] [address] Desk Director 08/08/22 Randa Rowell DO [address] [place] [address] [address] [place], [place] [phone] Hematology/Oncology 09/08/22 Sanket Rob, DO [address] [place] [address] Neurology 09/08/22 Ten Weber, [facility] [address] [place], [place] [phone] Transitional Care Pharmacist Pharmacy 09/19/22 10/17/22 Lecturer In Marketing Relationship Specialty Start Date End Date Israel Pruitt [address] [place] [address] PCP - General Internal Medicine 11/10/19 Laron Arreola [address] [phone] Orthopedics 11/22/20 Israel Minor MD [address] [place], [place] 720676 Cardiology 02/27/22 Eveline Dean RN [address] [place] [address] Desk Director 08/08/22 Randa Rowell DO [facility]6 [facility] [address] [place] [address] Hematology/Oncology 09/08/22 Sanket Rob, DO [address] [place] [address] Neurology 09/08/22 Ten Weber, [facility] [address] [place] [address] Transitional Care Pharmacist Pharmacy 09/19/22 10/17/22 Lecturer In Marketing Relationship Specialty Start Date End Date EdmondIsrael Hamzah, DO [address] [place] [address] PCP - General Internal Medicine 11/10/19 Laron Arreola [address] [address] Orthopedics 11/22/20 Israel Minor MD [address] [place], [place] [phone] Cardiology 02/27/22 Eveline Dean, JESSY [address] [place], [place] [phone] Desk Director 08/08/22 Randa Rowell DO 1946 [facility] [address] [place], [place] [phone] Hematology/Oncology 09/08/22 Sanket Rob, DO [address] [place] [address] Neurology 09/08/22 Ten Weber, [facility] [address] [place] [address] Transitional Care Pharmacist Pharmacy 09/19/22 10/17/22 Lecturer In Marketing Relationship Specialty Start Date End Date Israel Pruitt DO [address] [place] [address] PCP - General Internal Medicine 11/10/19 Laron Arreola 3425 [facility] [address] [place] [address] Orthopedics 11/22/20 Israel Minor MD [address] [place], [place] [phone] Cardiology 02/27/22 Eveline Dean RN [address] [place] [address] Desk Director 08/08/22 Randa Rowell DO [address] [place] [address] [phone] Hematology/Oncology 09/08/22 Sanket Rob, DO [address] [place] [address] Neurology 09/08/22 Ten Weber, [facility] [address] [place] [address] Transitional Care Pharmacist Pharmacy 09/19/22 10/17/22 Lecturer In Marketing Relationship Specialty Start Date End Date Israel Pruitt, [address] [place] [address] PCP - General Internal Medicine 11/10/19 Laron Arreola [address] [phone] Orthopedics 11/22/20 Israel Minor MD [address] [place], [place] [phone] Cardiology 02/27/22 Eveline Dean RN [address] [place] [address] Desk Director 08/08/22 Randa Rowell DO [address] [place] [address] [phone] Hematology/Oncology 09/08/22 Sanket Rob, DO [address] [place] [address] Neurology 09/08/22 Ten Weber, [facility] [address] [place] [address] Transitional Care Pharmacist Pharmacy 09/19/22 10/17/22 Lecturer In Marketing Relationship Specialty Start Date End Date Israel Pruitt, DO [address] [place] [address] PCP - General Internal Medicine 11/10/19 Laron Arreola 1473 [facility] [address] [place] [address] Orthopedics 11/22/20 Israel Minor MD [address] [place], [place] 362596 Cardiology 02/27/22 Eveline Dean, JESSY [address] [place], [place] [phone] Desk Director 08/08/22 Randa Rowell, DO 1946 [facility] [address] [place], [place] [phone] Hematology/Oncology 09/08/22 Sanket Rob, DO [address] [place] [address] Neurology 09/08/22 Lecturer In Marketing Relationship Specialty Start Date End Date Israel Pruitt, DO [address] [place] [address] PCP - General Internal Medicine 11/10/19 Laron Arreola [address] [place] [address] Orthopedics 11/22/20 Israel Minor MD [address], [place] 864930 [phone] Cardiology 02/27/22 Eveline Dean, JESSY [address] [place] [address] Desk Director 08/08/22 Randa Rowell, DO [address] [place] [address] [phone] Hematology/Oncology 09/08/22 Sanket Rob, DO [address] [place] [address] Neurology 09/08/22 Lecturer In Marketing Relationship Specialty Start Date End Date Israel Pruitt DO [address] [place] [address] PCP - General Internal Medicine 11/10/19 Laron Arreola [address] [place] [address] [phone] Orthopedics 11/22/20 Israel Minor MD [address] [place], [place] [phone] Cardiology 02/27/22 Eveline Dean, JESSY [address] [place] [address] Desk Director 08/08/22 Sorin Randa, DO [address] [place] [address] [phone] Hematology/Oncology 09/08/22 Sanket Rob, DO [address] [place] [address] Neurology 09/08/22 Lecturer In Marketing Relationship Specialty Start Date End Date Israel Pruitt DO [address] [place] [address] PCP - General Internal Medicine 11/10/19 Laron Arreola [address] [facility] [address] [place] [address] Orthopedics 11/22/20 Israel Minor MD [address] [place] [address] Cardiology 02/27/22 Eveline Dean, JESSY [address] [place], [place] [phone] Desk Director 08/08/22 Randa Rowell DO [address] [place] [address] [phone] Hematology/Oncology 09/08/22 Sanket Rob DO [address] [place] [address] Neurology 09/08/22 Lecturer In Marketing Relationship Specialty Start Date End Date Israel Pruitt DO [address] [place] [address] PCP - General Internal Medicine 11/10/19 Laron Arreola [address] [facility] [address] [facility] [address] [place] [address] Orthopedics 11/22/20 Israel Minor MD [address] [place], [place] 955178 [phone] Cardiology 02/27/22 Eveline Dean RN [address] [place] [address] Desk Director 08/08/22 Randa Rowell DO [address] [place] [address] [phone] Hematology/Oncology 09/08/22 Sanket Rob DO [address] [place] [address] Neurology 09/08/22 Lecturer In Marketing Relationship Specialty Start Date End Date Israel Pruitt, DO [address] [place] [address] PCP - General Internal Medicine 11/10/19 Laron Arreola [address] 738323 Orthopedics 11/22/20 Israel Minor MD [address] [place], [place] [phone] Cardiology 02/27/22 Eveline Dean, JESSY [address] [place], [place] 9028031 Desk Director 08/08/22 Randa Rowell DO [address] [phone] Hematology/Oncology 09/08/22 Sanket Rob, DO [address] [place] [address] Neurology 09/08/22 Lecturer In Marketing Relationship Specialty Start Date End Date Israel Pruitt, DO [address] [place] [address] PCP - General Internal Medicine 11/10/19 Laron Arreola 3977 [facility] [address] [place], [place] [phone] Orthopedics 11/22/20 Israel Minor MD [address] [place], [place] [phone] Cardiology 02/27/22 Eveline Dean, JESSY [address] [place] [address] Desk Director 08/08/22 Rnada Rowell, DO [address] [phone] Hematology/Oncology 09/08/22 Sanket Rob, DO [address] [place] [address] Neurology 09/08/22 Lecturer In Marketing Relationship Specialty Start Date End Date Israel Pruitt, DO [address] [place] [address] PCP - General Internal Medicine 11/10/19 Laron Arreola 5150 [facility] [address] [address] Orthopedics 11/22/20 Israel Minor MD [facility] [address] [place], [place] 505996 Cardiology 02/27/22 Eveline Dean, JESSY [address] [place] [phone] Desk Director 08/08/22 Randa Rowell, DO [address] [address] Hematology/Oncology 09/08/22 Sanket Rob, DO [address] [place] [address] Neurology 09/08/22 Lecturer In Marketing Relationship Specialty Start Date End Date Israel Pruitt DO [address] [place] [address] PCP - General Internal Medicine 11/10/19 Laron Arreola [address] [place] [address] Orthopedics 11/22/20 Israel Minor MD [address] [place], [place] [phone] Cardiology 02/27/22 Eveline Dean, JESSY [address] [place] [address] Desk Director 08/08/22 Randa Rowell, DO [address] [place] [address] [phone] Hematology/Oncology 09/08/22 Sanket Rob, DO [address] [place] [address] Neurology 09/08/22 Lecturer In Marketing Relationship Specialty Start Date End Date Israel Pruitt DO [address] [place] [address] PCP - General Internal Medicine 11/10/19 Laron Arreola [address] [phone] Orthopedics 11/22/20 Israel Minor MD [address] [place], [place] [phone] Cardiology 02/27/22 Eveline Dean, JESSY [address] [place] [address] Desk Director 08/08/22 Randa Rowell, DO [facility]6 [address] [phone] Hematology/Oncology 09/08/22 Sanket Rob, DO [address] [place] [address] Neurology 09/08/22 Lecturer In Marketing Relationship Specialty Start Date End Date Israel Pruitt DO [address] [place] [address] PCP - General Internal Medicine 11/10/19 Laron Arreola [address] [facility] [address] [place] [address] Orthopedics 11/22/20 Israel Minor MD [address] [place], [place] [id number] [phone] Cardiology 02/27/22 Eveline Dean, RN [address] [place], [place] [phone] Desk Director 08/08/22 Randa Rowell, [address] [place] [address] [phone] Hematology/Oncology 09/08/22 Sanket Rob, [address] [place] [address] Neurology 09/08/22 Lecturer In Marketing Relationship Specialty Start Date End Date Israel Pruitt, [address] [place] [address] PCP - General Internal Medicine 11/10/19 Laron Arreola 5090 [facility] [address] 0467[address] Orthopedics 11/22/20 Israel Minor MD [address] [place], [place] [phone] Cardiology 02/27/22 Eveline Dean, JESSY [address] [place], [place] 3227131 Desk Director 08/08/22 Randa Rowell DO [address] [place] [address] [phone] Hematology/Oncology 09/08/22 Sanket Rob, DO [address] [place] [address] Neurology 09/08/22 Lecturer In Marketing Relationship Specialty Start Date End Date Jovannyjoanrenata Israel Hamzah, DO [address] [facility] [place] [address] PCP - General Internal Medicine 11/10/19 Laron Arreola 3974 [facility] [address] [place] [address] Orthopedics 11/22/20 Israel Minor MD [address] [place], [place] 555526 Cardiology 02/27/22 Eveline Dean RN [address] [place], [place] [phone] Desk Director 08/08/22 Randa Rowell, DO 1946 [facility] [address] [place], [place] [phone] Hematology/Oncology 09/08/22 Sanket Rob, DO [address] [place] [address] Neurology 09/08/22 Lecturer In Marketing Relationship Specialty Start Date End Date Edmond Israel Hamzah, DO [address] [facility] [place] [address] PCP - General Internal Medicine 11/10/19 Laron Arreola [address] [facility] [address] [place] [address] Orthopedics 11/22/20 Israel Minor MD [address] [facility], [place] 814491 [phone] Cardiology 02/27/22 Eveline Dean, JESSY [address] [place] [address] Desk Director 08/08/22 Randa Rowell, [address] [place] [address] [phone] Hematology/Oncology 09/08/22 Sanket Rob, DO [address] [place] [address] Neurology 09/08/22 Lecturer In Marketing Relationship Specialty Start Date End Date Israel Pruitt DO [address] [place] [address] PCP - General Internal Medicine 11/10/19 Laron Arreola [address] [address] Orthopedics 11/22/20 Israel Minor MD [address] [place], [place] [phone] Cardiology 02/27/22 Eveline Dean, JESSY [address] [place] [address] Desk Director 08/08/22 ValentinoKonstantin bhaktaDO louis [address] [place] [address] [phone] Hematology/Oncology 09/08/22 Sanket Rob, DO [address] [place] [address] Neurology 09/08/22 Lecturer In Marketing Relationship Specialty Start Date End Date Israel Pruitt DO [address] [place] [address] PCP - General Internal Medicine 11/10/19 Laron Arreola [address] [facility] [address] [place] [address] Orthopedics 11/22/20 Israel Minor MD [address] [place], [place] 645319 [phone] Cardiology 02/27/22 Eveline Dean, JESSY [address] [place], [place] 2332231 Desk Director 08/08/22 Randa Rowell DO [address] [place] [address] [phone] Hematology/Oncology 09/08/22 Sanket Rob DO [address] [place] [address] Neurology 09/08/22 Lecturer In Marketing Relationship Specialty Start Date End Date Israel Pruitt DO [address] [place] [address] PCP - General Internal Medicine 11/10/19 Laron Arreola [address] [facility] [address] [facility] [address] [place] [address] Orthopedics 11/22/20 Israel Minor MD [address] [place], [place] 536041 [phone] Cardiology 02/27/22 Eveline Dean RN [address] [place] [address] Desk Director 08/08/22 Randa Rowell DO [address] [place] [address] [phone] Hematology/Oncology 09/08/22 Sanket Rob DO [address] [place] [address] Neurology 09/08/22 Lecturer In Marketing Relationship Specialty Start Date End Date JovannyjoanIsrael yanez, DO [address] [place] [address] PCP - General Internal Medicine 11/10/19 Laron Arreola 3974 [facility] [address] [place], [place] 843473 Orthopedics 11/22/20 Israel Minor MD [address] [place], [place] [phone] Cardiology 02/27/22 Eveline Dean, JESSY [address] [place], [place] [phone] Desk Director 08/08/22 Randa Rowell DO [address] [phone] Hematology/Oncology 09/08/22 Sanket Rob, DO [address] [place] [address] Neurology 09/08/22 Lecturer In Marketing Relationship Specialty Start Date End Date JovannyjoanIsrael yanezil, DO [address] [place] [address] PCP - General Internal Medicine 11/10/19 Laron Arreola 3971 [facility] [address] [place], [place] [address] Orthopedics 11/22/20 Israel Minor MD [address] [place], [place] [phone] Cardiology 02/27/22 Eveline Dean, JESSY [address] [place] [address] Desk Director 08/08/22 Randa Rowell, DO [address] [phone] Hematology/Oncology 09/08/22 Sanket Rob, DO [address] [place] [address] Neurology 09/08/22 Lecturer In Marketing Relationship Specialty Start Date End Date Israel Pruitt DO [address] [place] [address] PCP - General Internal Medicine 11/10/19 Laron Arreola [address] [employer] [address] Orthopedics 11/22/20 Israel Minor MD [facility] [address] [place], [place] 338606 Cardiology 02/27/22 Eveline Dean, JESSY [address] [place] [id number] Desk Director 08/08/22 Randa Rowell, DO [address] [address] Hematology/Oncology 09/08/22 Sanket Rob, DO [address] [place] [address] Neurology 09/08/22 Lecturer In Marketing Relationship Specialty Start Date End Date Israel Pruitt DO [address] [place] [address] PCP - General Internal Medicine 11/10/19 Lar[address] Arreola [address] [address] Orthopedics 11/22/20 Israel Minor MD [address] [place], [place] [phone] Cardiology 02/27/22 Eveline Dean, JESSY [address] [place] [address] Desk Director 08/08/22 Randa Rowell, DO [address] [place] [address] 310 [place], [place] [phone] Hematology/Oncology 09/08/22 Sanket Rob, DO [address] [place] [address] Neurology 09/08/22 Lecturer In Marketing Relationship Specialty Start Date End Date Israel Pruitt DO [address] [place] [address] PCP - General Internal Medicine 11/10/19 Laron Arreola 3975 [facility] [address] [place] [address] Orthopedics 11/22/20 Israel Minor MD [address] [place], [place] [phone] Cardiology 02/27/22 Eveline Dean RN [address] [place] [address] Desk Director 08/08/22 Randa Rowell, DO [facility]6 [facility] [address] [place], [place] [phone] Hematology/Oncology 09/08/22 Sanket Rob, DO [address] [place] [address] Neurology 09/08/22 Lecturer In Marketing Relationship Specialty Start Date End Date Israel Pruitt DO [address] [place] [address] PCP - General Internal Medicine 11/10/19 Laron Arreola 3973 [facility] [address] [place] [address] Orthopedics 11/22/20 Israel Minor MD [address] [place], [place] [phone] Cardiology 02/27/22 Eveline Dean, JESSY [address] [place] [address] Desk Director 08/08/22 Randa Rowell DO [address] [place] [address] [phone] Hematology/Oncology 09/08/22 Sanket Rob, [address] [place] [address] Neurology 09/08/22 Lecturer In Marketing Relationship Specialty Start Date End Date Israel Pruitt [address] [place] [address] PCP - General Internal Medicine 11/10/19 Lar[address] Arreola 0467 [facility] [address] [place] [address] Orthopedics 11/22/20 Israel Minor MD [address] [place], [place] [phone] Cardiology 02/27/22 Eveline Dean, JESSY [address] [place], [place] 2584731 Desk Director 08/08/22 Randa Rowell DO [address] [place] [address] [phone] Hematology/Oncology 09/08/22 Sanket Rob, DO [address] [place] [address] Neurology 09/08/22 Lecturer In Marketing Relationship Specialty Start Date End Date Israel Pruitt Hamzah, DO [address] [facility] [place] [address] PCP - General Internal Medicine 11/10/19 Laron Arreola 3971 [facility] [address] [place] [address] Orthopedics 11/22/20 Israel Minor MD [address] [place], [place] 048016 Cardiology 02/27/22 Eveline Dean RN [address] [place] [phone] Desk Director 08/08/22 Randa Rowell, DO 1946 [facility] [address] [place], [place] [phone] Hematology/Oncology 09/08/22 Sanket Rob, DO [address] [place] [address] Neurology 09/08/22 Lecturer In Marketing Relationship Specialty Start Date End Date Edmond Israel Hamzah, DO [address] [facility] [place] [address] PCP - General Internal Medicine 11/10/19 Laron Arreola 3971 [facility] [address] [place] [address] Orthopedics 11/22/20 Israel Minor MD [address] [place], [place] 361597 [phone] Cardiology 02/27/22 Eveline Dean RN [address] [place] [address] Desk Director 08/08/22 Randa Rowell, DO [address] [place] [address] [phone] Hematology/Oncology 09/08/22 Sanket Rob, DO [address] [place] [address] Neurology 09/08/22 Lecturer In Marketing Relationship Specialty Start Date End Date Israel Pruitt, DO [address] [place] [address] PCP - General Internal Medicine 11/10/19 [address] Ar[address]ola [address] [place] [address] Orthopedics 11/22/20 Israel Minor MD [address] [place], [place] 727096 Cardiology 02/27/22 Eveline Dean RN [address] [place] [address] Desk Director 08/08/22 Randa Rowell, DO [address] [place] [address] [phone] Hematology/Oncology 09/08/22 Sanket Rob, DO [address] [place] [address] Neurology 09/08/22 Lecturer In Marketing Relationship Specialty Start Date End Date Israel Pruitt, DO [address] [place] [address] PCP - General Internal Medicine 11/10/19 [address] Arreola [address] [place] [address] Orthopedics 11/22/20 Israel Minor MD [address] [place], [place] 923516 Cardiology 02/27/22 Eveline Dean, JESSY [address] [place], [place] [phone] Desk Director 08/08/22 Randa Rowell DO [address] [place] [address] [phone] Hematology/Oncology 09/08/22 Sanket Rob DO [address] [place] [address] Neurology 09/08/22 Lecturer In Marketing Relationship Specialty Start Date End Date Israel Pruitt DO [address] [place] [address] PCP - General Internal Medicine 11/10/19 Laron Arreola 3975 [facility] [address] [place] [address] Orthopedics 11/22/20 Israel Minor MD [address] [place], [place] 380686 Cardiology 02/27/22 Eveline Dean, JESSY [address] [place] [address] Desk Director 08/08/22 Randa Rowell DO [address] [place] [address] [phone] Hematology/Oncology 09/08/22 Sanket Rob DO [address] [place] [address] Neurology 09/08/22 Lecturer In Marketing Relationship Specialty Start Date End Date Israel Pruitt, DO [address] [place] [address] PCP - General Internal Medicine 11/10/19 [address] Arreola [address] [facility] [address] [place], [place] 790433 Orthopedics 11/22/20 Israel Minor MD [address] [place], [place] 684236 Cardiology 02/27/22 Eveline Dean, JESSY [address] [place], [place] [phone] Desk Director 08/08/22 Randa Rowell, DO 1946 [facility] [address] [place], [place] [phone] Hematology/Oncology 09/08/22 Sanket Rob, DO [address] [place] [address] Neurology 09/08/22 Ruby Duff, JESSY [address] [place], [place] [id number] Specialty Ab Initio Etl Developer Hematology/Oncology 04/03/23 Lecturer In Marketing Relationship Specialty Start Date End Date Israel Pruitt DO [address] [place] [address] PCP - General Internal Medicine 11/10/19 Laron Arreola [address] [facility] [address] [place] [address] Orthopedics 11/22/20 Israel Minor MD [address] [place], [place] [address] Cardiology 02/27/22 Eveline Dean RN [address] [place] [address] Desk Director 08/08/22 Randa Rowell, DO [address] [place] [address] [address] [place], [place] [id number] Hematology/Oncology 09/08/22 Sanket Rob, DO [address] [place] [address] Neurology 09/08/22 Ruby Duff RN [address] [place] [address] Specialty Ab Initio Etl Developer Hematology/Oncology 04/03/23 Lecturer In Marketing Relationship Specialty Start Date End Date Israel Pruitt DO [address] [place] [address] PCP - General Internal Medicine 11/10/19 Laron Arreola [address] [facility] [address] [place], [place] [id number] Orthopedics 11/22/20 Israel Minor MD [address] [place], [place] [id number] Cardiology 02/27/22 Eveline Dean RN [address] [place] [address] Desk Director 08/08/22 Randa Rowell DO [address] [place] [address] [address] [place], [place] [id number] Hematology/Oncology 09/08/22 Sanket Rob, DO [address] [place] [address] Neurology 09/08/22 Ruby Duff RN [address] [place], [place] [id number] Specialty Ab Initio Etl Developer Hematology/Oncology 04/03/23 Lecturer In Marketing Relationship Specialty Start Date End Date Edmond Israel Hamzah DO [address] [place] [address] PCP - General Internal Medicine 11/10/19 Laron Arreola [address] [facility] [address] [facility] [address] [place] [address] Orthopedics 11/22/20 Israel Minor MD [address] [place], [place] 4[address]66 Cardiology 02/27/22 Eveline Dean RN [address] [place], [place] [phone] Desk Director 08/08/22 Randa Rowell DO 1946 [facility] [address] [place], [place] [phone] Hematology/Oncology 09/08/22 Sanket Rob [address] [place] [address] Neurology 09/08/22 Ruby Duff RN [address] [place] [address] Specialty Ab Initio Etl Developer Hematology/Oncology 04/03/23 Lecturer In Marketing Relationship Specialty Start Date End Date Israel Pruitt DO [address] [place] [address] PCP - General Internal Medicine 11/10/19 Laron Arreola [address] [facility] [address] [place], [place] [address] Orthopedics 11/22/20 Israel Minor MD [address] [place], [place] 799676 Cardiology 02/27/22 Eveline Dean, JESSY [address] [place], [place] [phone] Desk Director 08/08/22 Randa Rowell, DO [address] [place] [id number] Hematology/Oncology 09/08/22 Sanket Rob, DO [address] [place] [address] Neurology 09/08/22 Ruby Duff, JESSY [address] [facility] [place] [address] Specialty Ab Initio Etl Developer Hematology/Oncology 04/03/23 Lecturer In Marketing Relationship Specialty Start Date End Date Israel Pruitt, DO [address] [place] [address] PCP - General Internal Medicine 11/10/19 Laron Arreola [address] [place] [address] Orthopedics 11/22/20 Israel Minor MD [address] [place], [place] 623824 [phone] Cardiology 02/27/22 Eveline Dean, JESSY [address] [place] [address] Desk Director 08/08/22 Randa Rowell, DO [address] [place] [address] [phone] Hematology/Oncology 09/08/22 Sanket Rob, DO [address] [place] [address] Neurology 09/08/22 Ruby Duff, JESSY [address] [place], [place] [phone] Specialty Ab Initio Etl Developer Hematology/Oncology 04/03/23 Lecturer In Marketing Relationship Specialty Start Date End Date Zabrinarenata Israel Hamzah, DO [address] [place] [address] PCP - General Internal Medicine 11/10/19 Laron Arreola [address] [facility] [address] [place], [place] [address] Orthopedics 11/22/20 Israel Minor MD [address] [place], [place] 450556 Cardiology 02/27/22 Eveline Dean, JESSY [address] [place], [place] [phone] Desk Director 08/08/22 Randa Rowell, DO 1946 [facility] [address] [place], [place] [phone] Hematology/Oncology 09/08/22 Sanket Rob, DO [address] [place] [address] Neurology 09/08/22 Ruby Duff, JESSY [address] [place], [place] 8[address] Specialty Ab Initio Etl Developer Hematology/Oncology 04/03/23 Lecturer In Marketing Relationship Specialty Start Date End Date Edmond Israel Hamzah, DO [address] [place] [address] PCP - General Internal Medicine 11/10/19 Laron Arreola [address] [facility] [address] [place] [address] Orthopedics 11/22/20 Israel Minor MD [address] [place], [place] [phone] Cardiology 02/27/22 Eveline Dean, JESSY [address] [place], [place] 4773931 Desk Director 08/08/22 Randa Rowell [address] [place], [place] [phone] Hematology/Oncology 09/08/22 Sanket Rob DO [address] [place] [address] Neurology 09/08/22 Ruby Duff RN [address] [place], [place] [phone] Specialty Ab Initio Etl Developer Hematology/Oncology 04/03/23 Lecturer In Marketing Relationship Specialty Start Date End Date Israel Pruitt DO [address] [place] [address] PCP - General Internal Medicine 11/10/19 Laron Arreola 39[address] [facility] [address] [place], [place] 186703 Orthopedics 11/22/20 Israel Minor MD [address] [place], [place] 766376 [phone] Cardiology 02/27/22 Randa Rowell [address] [place], [place] [phone] Hematology/Oncology 09/08/22 Sanket Rob DO [address] [place] [address] Neurology 09/08/22 Ruby Duff RN [address] [place], [place] [phone] Specialty Ab Initio Etl Developer Hematology/Oncology 04/03/23 Ginna Em, RN [address] [place] [address] Desk Director Unspecified 04/15/23 Lecturer In Marketing Relationship Specialty Start Date End Date Israel Pruitt, DO [address] [facility] [place] [address] PCP - General Internal Medicine 11/10/19 Laron rAreola [address] [facility] [address] [place] [address] Orthopedics 11/22/20 Israel Minor MD [address] [place], [place] 495916 Cardiology 02/27/22 Randa Rowell, DO 1946 [facility] [address] [place], [place] [phone] Hematology/Oncology 09/08/22 Sanket Rob, DO [address] [place] [address] Neurology 09/08/22 Ruby Duff, JESSY [address] [place] [address] Specialty Ab Initio Etl Developer Hematology/Oncology 04/03/23 Ginna Em, RN [address] [place] [address] Desk Director Unspecified 04/15/23 Lecturer In Marketing Relationship Specialty Start Date End Date Israel Pruitt, DO [address] [place] [address] PCP - General Internal Medicine 11/10/19 Laron Arreola [address] [facility] [address] [place], [place] 46[address]73 Orthopedics 11/22/20 Israel Minor MD [address] [place], [place] [phone] Cardiology 02/27/22 [facility] DO 194 [facility] 310 [place], [place] [phone] Hematology/Oncology 09/08/22 Sanket Rob, [address] [place] [address] Neurology 09/08/22 Ruby Duff RN [address] [facility] [place] [address] Specialty Ab Initio Etl Developer Hematology/Oncology 04/03/23 Ginna Em, JESSY [address] [place] [address] Desk Director Unspecified 04/15/23 Lecturer In Marketing Relationship Specialty Start Date End Date Israel Pruitt [address] [place] [address] PCP - General Internal Medicine 11/10/19 Laron Arreola [address] [facility] [address] [place] [address] Orthopedics 11/22/20 Israel Minor MD [address] [place], [place] 899756 Cardiology 02/27/22 Randa Rowell, DO 194 [facility] [address] [place], [place] [address] Hematology/Oncology 09/08/22 Sanket Rob, DO [address] [place] [address] Neurology 09/08/22 Ruby Duff RN [address] [place] [address] Specialty Ab Initio Etl Developer Hematology/Oncology 04/03/23 Ginna Em, RN [address] [place], [place] [phone] Desk Director Unspecified 04/15/23 Lecturer In Marketing Relationship Specialty Start Date End Date Israel Pruitt, [address] [place] [address] PCP - General Internal Medicine 11/10/19 Laron Arreola [address] [facility] [address] [place], [place] [phone] Orthopedics 11/22/20 Israel Minor MD [address] [place], [place] [id number] Cardiology 02/27/22 Randa Rowell DO 1946 [facility] [address] [place], [place] [phone] Hematology/Oncology 09/08/22 Sanket Rob, DO [address] [place] [address] Neurology 09/08/22 Ruby Duff RN [address] [place] [address] Specialty Ab Initio Etl Developer Hematology/Oncology 04/03/23 Ginna Em, JESSY [address] [place], [place] 5896131 Desk Director Unspecified 04/15/23 Lecturer In Marketing Relationship Specialty Start Date End Date Israel Pruitt, DO [address] [facility] [place] [address] PCP - General Internal Medicine 11/10/19 Laron Arreola [address] [facility] [address] [place] [address] Orthopedics 11/22/20 Israel Minor MD [address] [place], [place] [id number] [phone] Cardiology 02/27/22 Sanket Rob, DO [address] [place] [address] Neurology 09/08/22 Ruby Duff, JESSY [address] [place] [address] Specialty Ab Initio Etl Developer Hematology/Oncology 04/03/23 Ginna Em, RN [address] [place] [phone] Desk Director Unspecified 04/15/23 Lecturer In Marketing Relationship Specialty Start Date End Date Israel Pruitt, DO [address] [facility] [place] [address] PCP - General Internal Medicine 11/10/19 Laron Arreola [address] [facility] [address] [place] [address] Orthopedics 11/22/20 Israel Minor MD [address] [place] [address] Cardiology 02/27/22 Sanket Rob, DO [address] [place] [address] Neurology 09/08/22 Ruby Duff, JESSY [address] [place] [address] Specialty Ab Initio Etl Developer Hematology/Oncology 04/03/23 Ginna Em, RN [address] [place], [place] [phone] Desk Director Unspecified 04/15/23 Lecturer In Marketing Relationship Specialty Start Date End Date Israel Pruitt, DO [address] [place] [address] PCP - General Internal Medicine 11/10/19 Laron Arreola [address] [facility] [address] [place] [address] Orthopedics 11/22/20 Israel Minor MD [address] [place] [address] Cardiology 02/27/22 Sanket Rob, DO [address] [place] [address] Neurology 09/08/22 Ruby Duff RN [address] [place] [address] Specialty Ab Initio Etl Developer Hematology/Oncology 04/03/23 Ginna Em, RN [address] [place] [address] Desk Director Unspecified 04/15/23 Lecturer In Marketing Relationship Specialty Start Date End Date Israel Pruitt DO [address] [place] [address] PCP - General Internal Medicine 11/10/19 Laron Arreola [address] [facility] [address] [place] [address] Orthopedics 11/22/20 Israel Minor MD [address] [place], [place] 741319 [phone] Cardiology 02/27/22 Sanket Rob, DO [address] [place] [address] Neurology 09/08/22 Ruby Duff RN [address] [place] [address] Specialty Ab Initio Etl Developer Hematology/Oncology 04/03/23 Ginna Em RN [address] [place], [place] [phone] Desk Director Unspecified 04/15/23 Lecturer In Marketing Relationship Specialty Start Date End Date Israel Pruitt DO [address] [place] [address] PCP - General Internal Medicine 11/10/19 Laron Arreola [address] [facility] [address] [facility] [address] [place], [place] [address] Orthopedics 11/22/20 Israel Minor MD [address] [place] [address] Cardiology 02/27/22 Sanket Rob, DO [address] [place] [address] Neurology 09/08/22 Ruby Duff RN [address] [place] [address] Specialty Ab Initio Etl Developer Hematology/Oncology 04/03/23 Ginna Em RN [address] [place], [place] [phone] Desk Director Unspecified 04/15/23 Lecturer In Marketing Relationship Specialty Start Date End Date Israel Pruitt DO [address] [facility] [place] [address] PCP - General Internal Medicine 11/10/19 Laron Arreola [address] [facility] [address] [place] [address] Orthopedics 11/22/20 Israel Minor MD [address] [place], [place] 501818 [phone] Cardiology 02/27/22 Sanket Rob, DO [address] [place] [address] Neurology 09/08/22 Ruby Duff RN [address] [place] [address] Specialty Ab Initio Etl Developer Hematology/Oncology 04/03/23 Ginan Em, JESSY [address] [place] [phone] Desk Director Unspecified 04/15/23 Lecturer In Marketing Relationship Specialty Start Date End Date Israel Pruitt, DO [address] [facility] [place] [address] PCP - General Internal Medicine 11/10/19 Laron Arreola [address] [place] [address] Orthopedics 11/22/20 Israel Minor MD [address] [place], [place] 122454 [phone] Cardiology 02/27/22 Sanket Rob, DO [address] [place] [address] Neurology 09/08/22 Ruby Duff, JESSY [address] [place] [address] Specialty Ab Initio Etl Developer Hematology/Oncology 04/03/23 Ginna Em, JESSY [address] [place] [address] Desk Director Unspecified 04/15/23 Lecturer In Marketing Relationship Specialty Start Date End Date Israel Pruitt, DO [address] [facility] [place] [address] PCP - General Internal Medicine 11/10/19 Laron Arreola [address] [facility] [address] [place] [address] Orthopedics 11/22/20 Israel Minor MD [address] [place] [address] Cardiology 02/27/22 Sanket Rob, DO [address] [place] [address] Neurology 09/08/22 Ruby Duff RN [address] [place] [address] Specialty Ab Initio Etl Developer Hematology/Oncology 04/03/23 Ginna Em RN [address] [place] [address] Desk Director Unspecified 04/15/23 Lecturer In Marketing Relationship Specialty Start Date End Date Israel Pruitt, DO [address] [place] [address] PCP - General Internal Medicine 11/10/19 Laron Arreola [address] [facility] [address] [place] [address] Orthopedics 11/22/20 Israel Minor MD [address] [place] [address] Cardiology 02/27/22 Sanket Rob, DO [address] [place] [address] Neurology 09/08/22 Ruby Duff RN [address] [place] [address] Specialty Ab Initio Etl Developer Hematology/Oncology 04/03/23 Ginna Em, RN [address] [place], [place] [phone] Desk Director Unspecified 04/15/23 Lecturer In Marketing Relationship Specialty Start Date End Date Israel Pruitt DO [address] [place] [address] PCP - General Internal Medicine 11/10/19 Laron Arreola [address] [facility] [address] [place] [address] Orthopedics 11/22/20 Israel Minor MD [address] [place] [address] Cardiology 02/27/22 Sanket Rob, DO [address] [place] [address] Neurology 09/08/22 Ruby Duff RN [address] [place] [address] Specialty Ab Initio Etl Developer Hematology/Oncology 04/03/23 Ginna Em, RN [address] [place], [place] 6243631 Desk Director Unspecified 04/15/23 Team Status: Active Member Role Status Dates Dr. Arturo Guerrero MD Family Provider Active Hamzah Pruitt Primary Care Provider Active Team Status: Inactive Member Role Status Dates Dr. Ned Dinh MD Attending Provider Active Team Status: Active Member Role Status Dates [facility] Attending Provider Active Team Status: Active Member Role Status Dates Dr. Pedro Diaz MD Emergency Provider Active Edmond Goodson Primary Care Provider Active Dr. Mary Prather MD Admit Provider, Attending Provid er Active Lecturer In Marketing Relationship Specialty Start Date End Date Israel Pruitt, DO [address] [place] [address] PCP - General Internal Medicine 11/10/19 Laron Arreola [address] [facility] [address] [place], [place] 310933 Orthopedics 11/22/20 Israel Minor MD [address] [place], [place] [id number] Cardiology 02/27/22 Sanket Rob, DO [address] [place] [address] Neurology 09/08/22 Ruby Duff, JESSY [address] [place], [place] [id number] Specialty Ab Initio Etl Developer Hematology/Oncology 04/03/23 Ginna Em, RN [address] [place] [address] Desk Director Unspecified 04/15/23 Team Status: Active Member Role Status Dates Dr. Homer Khan MD Attending Provider Active Team Status: Active Member Role Status Dates Dr. Cristobal Villafuerte MD Attending Provider Activ e Team Status: Active Member Role Status Dates Dr. Pedro Diaz MD Emergency Provider Active Edmond Goodson Primary Care Provider Active Dr. Mary Prather MD Admit Provider, At tending Provider, Other Provider Active Team Status: Active Member Role Status Dates Dr. Pedro Diaz MD Emergency Provider Active Edmond Goodson Primary Care Provider Active Dr. Mary Prather MD Admit Provider, Other Provider A ctive Dr. Marshal Rebolledo MD Attending Provider, Other Provi lyn Active Team Status: Active Member Role Status Dates Dr. Pedro Diaz MD Emergency Provider [facility] Primary Care Provider Active Dr. Mary Prather MD Admit Provider, Other Provider A ctive Dr. Marshal Rebolledo MD Attending Provider, Other Provi lyn Active Dr. Homer Marsh MD Other Provider Active Team Status: Inactive Member Role Status Dates Dr. Pedro Diaz MD Emergency Provider Active [facility] Primary Care Provider Active Dr. Mary Prather MD Admit Provider, Other Provider A ctive Dr. Marshal Rebolledo MD Attending Provider Active Dr. Homer Marsh MD Other Provider Active Lecturer In Marketing Relationship Specialty Start Date End Date ZabrinaIsrael yanez [address] [place] [address] PCP - General Internal Medicine 11/10/19 Laron Arreola [address] [facility] [address] [place] [address] Orthopedics 11/22/20 Israel Minor MD [address] [place] [address] Cardiology 02/27/22 Sanket Rob, [address] [place] [address] Neurology 09/08/22 Ruby Duff, JESSY [address] [place], [place] [phone] Specialty Ab Initio Etl Developer Hematology/Oncology 04/03/23 Ginna Em, RN [address] [place] [address] Desk Director Unspecified 04/15/23 Doup, Ileana, RN Specialty Ab Initio Etl Developer 05/19/23 Lecturer In Marketing Relationship Specialty Start Date End Date Israel Pruitt DO Hamzah [address] [place] [address] PCP - General Internal Medicine 11/10/19 Laron Arreola [address] [facility] [address] [address] Orthopedics 11/22/20 Israel Minor MD [address] [place], [place] 773916 Cardiology 02/27/22 Randa Rowell DO 1946 [facility] [address] [place], [place] 134[address] Hematology/Oncology 09/08/22 05/04/23 Sanket Rob DO [address] [place] [address] Neurology 09/08/22 Ruby Duff, JESSY [address] [place], [place] [phone] Specialty Ab Initio Etl Developer Hematology/Oncology 04/03/23 iGnna Em, RN [address] [place] [address] Desk Director Unspecified 04/15/23 Ileana Sosa RN Specialty Ab Initio Etl Developer 05/19/23 Lecturer In Marketing Relationship Specialty Start Date End Date Israel Pruitt DO Hamzah [address] [place] [address] PCP - General Internal Medicine 11/10/19 Laron Arreola 39[address] [facility] [address] [place], [place] 609[address] Orthopedics 11/22/20 Israel Minor MD [address] [place], [place] 170566 Cardiology 02/27/22 Sanket Rob DO [address] [place] [address] Neurology 09/08/22 Ruby Duff RN [address] [place], [place] [id number] Specialty Ab Initio Etl Developer Hematology/Oncology 04/03/23 Ginna Em RN [address] [place], [place] 8[address]31 Desk Director Unspecified 04/15/23 Ileana Sosa RN Specialty Ab Initio Etl Developer 05/19/23 Lecturer In Marketing Relationship Specialty Start Date End Date Israel Pruitt DO [address] [place] [address] PCP - General Internal Medicine 11/10/19 Laron Arreola [address] [facility] [address] [place], [place] [address]283 Orthopedics 11/22/20 Israel Minor MD [address] [place] [address] Cardiology 02/27/22 Sanket Rob DO [address] [place] [address] Neurology 09/08/22 Ruby Duff RN [address] [place], [place] [id number] Specialty Ab Initio Etl Developer Hematology/Oncology 04/03/23 Ginna Em, RN [address] [place], [place] [phone] Desk Director Unspecified 04/15/23 Ileana Sosa RN Specialty Ab Initio Etl Developer 05/19/23 Lecturer In Marketing Relationship Specialty Start Date End Date Israel Pruitt DO [address] [place] [address] PCP - General Internal Medicine 11/10/19 Laron Arreola [address] [facility] [address] [place] [address] Orthopedics 11/22/20 Israel Minor MD [address] [place] [address] Cardiology 02/27/22 Sanket Rob DO [address] [place] [address] Neurology 09/08/22 Ruby Duff RN [address] [place], [place] [id number] Specialty Ab Initio Etl Developer Hematology/Oncology 04/03/23 Ginna Em, RN [address] [place], [place] 3784631 Desk Director Unspecified 04/15/23 Ileana Sosa RN Specialty Ab Initio Etl Developer 05/19/23 Lecturer In Marketing Relationship Specialty Start Date End Date Israel Pruitt DO [address] [place] [address] PCP - General Internal Medicine 11/10/19 Laron Arreola 39[address] [facility] [address] [place], [place] 506573 Orthopedics 11/22/20 Israel Minor MD [address] [place], [place] 246356 Cardiology 02/27/22 Sanket Rob, [address] [place] [address] Neurology 09/08/22 Ruby Duff, JESSY [address] [facility] [place] [place] 457[address] Specialty Ab Initio Etl Developer Hematology/Oncology 04/03/23 Ginna Em RN [address] [place] [address] [id number] Desk Director Unspecified 04/15/23 Ileana Sosa RN Specialty Ab Initio Etl Developer 05/19/23 Lecturer In Marketing Relationship Specialty Start Date End Date Israel Pruitt DO [address] [place], [place] 8377518 PCP - General Internal Medicine 11/10/19 06/14/23 Laron Arreola [address] [facility] [address] [address] Orthopedics 11/22/20 Israel Minor MD [address] [place] [address] Cardiology 02/27/22 Sanket Rob DO [address] [place] [address] Neurology 09/08/22 Ruby Duff RN [address] [place], [place] [id number] Specialty Ab Initio Etl Developer Hematology/Oncology 04/03/23 Ginna Em, RN [address] [place] [address] Desk Director Unspecified 04/15/23 Ileana Sosa RN Specialty Ab Initio Etl Developer 05/19/23 Lecturer In Marketing Relationship Specialty Start Date End Date Ronaldo Pleitez MD [address] [place], [place] [id number] PCP - General Internal Medicine 06/15/23 Laron Arreola [address] [facility] [address] [address] [place], [place] 182233 Orthopedics 11/22/20 Israel Minor MD [address] [place], [place] 497[address] Cardiology 02/27/22 Sanket Rob DO [address] [place] [address] Neurology 09/08/22 Ruby Duff RN [address] [place], [place] [id number] Specialty Ab Initio Etl Developer Hematology/Oncology 04/03/23 Ginna Em, RN [address] [place] [address] Desk Director Unspecified 04/15/23 Ileana Sosa RN Specialty Ab Initio Etl Developer 05/19/23 Team Status: Active Member Role Status Dates Dr. Arturo Guerrero MD Family Provider Active Out of [facility] Doctor Primary Care Provider Active Team Status: Active Member Role Status Dates Dr. Homer Khan MD Attending Provider Active Dr. Pedro Diaz MD Referring Provider Active Team Status: Active Member Role Status Dates Dr. Cristobal Villafuerte MD Attending Provider, Refe rring Provider Active Team Status: Inactive Member Role Status Dates [facility] Attending Provider Active Team Status: Active Member Role Status Dates edmond saravia Attending Provider Active Team Status: Inactive Member Role Status Dates Edmond Goodson Primary Care Provider Active Dr. Baljinder Galloway DO Attending Provider, Referring Prov ider Active Team Status: Active Member Role Status Dates Out of [facility] Doctor Primary Care Provider Active Ronaldo CASSIDY MD Attending Provider, Referring Provider Active Team Status: Inactive Member Role Status Dates edmond saravia Attending Provider Active Team Status: Inactive Member Role Status Dates Out of [facility] Doctor Primary Care Provider Active Ronaldo CASSIDY MD Attending Provider, Referring Provider Active Lecturer In Marketing Relationship Specialty Start Date End Date Ronaldo Pleitez MD [address] [place], [place] 256681 PCP - General Internal Medicine 06/15/23 Laron Arreola [address] [facility] [address] [address] [place], [place] [address]327[address] Orthopedics 11/22/20 Israel Minor MD [address] [place] [address] Cardiology 02/27/22 Sanket Rob DO [address] [place] [address] Neurology 09/08/22 Ruby Duff, JESSY [address] [place], [place] 541221 Specialty Ab Initio Etl Developer Hematology/Oncology 04/03/23 Ginna Em, JESSY [address] [place], [place] [id number] Desk Director Unspecified 04/15/23 Ileana Sosa RN Specialty Ab Initio Etl Developer 05/19/23 Lecturer In Marketing Relationship Specialty Start Date End Date Ronaldo Pleitez MD [address] [place], [place] 871111 PCP - General Internal Medicine 06/15/23 Laron Arreola 39[address] [facility] [address] [place] [address] Orthopedics 11/22/20 Israel Minor MD [facility] [address] Cardiology 02/27/22 Sanket Rob DO [address] [place] [address] Neurology 09/08/22 Ruby Duff, JESSY [address] [place], [place] 550061 Specialty Ab Initio Etl Developer Hematology/Oncology 04/03/23 Ginna Em RN [address] [place] [address] Desk Director Unspecified 04/15/23 Ileana Sosa, RN Specialty Ab Initio Etl Developer 05/19/23 Lecturer In Marketing Relationship Specialty Start Date End Date Ronaldo Pleitez MD [address] [place], [place] 789731 PCP - General Internal Medicine 06/15/23 Laron Arreola 3975 [facility] [address] [place], [place] 4[address]33 Orthopedics 11/22/20 Israel Minor MD [address] [place] [address] Cardiology 02/27/22 Sanket Rob DO [address] [place] [address] Neurology 09/08/22 Ruby Duff RN [address] [place], [place] 914211 Specialty Ab Initio Etl Developer Hematology/Oncology 04/03/23 Ginna Em RN [address] [place] [address] [id number] Desk Director Unspecified 04/15/23 Ileana Sosa RN Specialty Ab Initio Etl Developer 05/19/23 Lecturer In Marketing Relationship Specialty Start Date End Date Ronaldo Pleitez MD [address] [place], [place] 657671 PCP - General Internal Medicine 06/15/23 Laron Arreola 3975 [facility] [address] [place] [place], [place] [address]703 Orthopedics 11/22/20 Israel Minor MD [address] [place] [address] Cardiology 02/27/22 Sanket Rob, [address] [place] [address] Neurology 09/08/22 Ruby Duff RN [address] [facility] [place] [place] [id number] Specialty Ab Initio Etl Developer Hematology/Oncology 04/03/23 Ginna Em, RN [address] [place] [address] Desk Director Unspecified 04/15/23 Ileana Sosa, RN Specialty Ab Initio Etl Developer 05/19/23 Lecturer In Marketing Relationship Specialty Start Date End Date Ronaldo Pleitez MD [address] [place], [place] 363741 PCP - General Internal Medicine 06/15/23 Laron Arreola [address] [facility] [address] [place], [place] 242023 Orthopedics 11/22/20 Israel Minor MD [address] [place] [address] Cardiology 02/27/22 Sanket Rob DO [address] [place] [address] Neurology 09/08/22 Ruby Duff, JESSY [address] [place] [address] Specialty Ab Initio Etl Developer Hematology/Oncology 04/03/23 Ginna Em, JESSY [address] [place] [address] Desk Director Unspecified 04/15/23 Ileana Sosa RN Specialty Ab Initio Etl Developer 05/19/23 Lecturer In Marketing Relationship Specialty Start Date End Date Ronaldo Pleitez MD [address] [place] [address] PCP - General Internal Medicine 06/15/23 Laron Arreola [address] [facility] [address] [place] [address] Orthopedics 11/22/20 Israel Minor MD [address] [place] [address] Cardiology 02/27/22 Sanket Rob, [address] [place] [address] Neurology 09/08/22 Ruby Duff RN [address] [place], [place] [id number] Specialty Ab Initio Etl Developer Hematology/Oncology 04/03/23 Ginna Em RN [address] [place] [phone] Desk Director Unspecified 04/15/23 Ileana Sosa RN Specialty Ab Initio Etl Developer 05/19/23 Lecturer In Marketing Relationship Specialty Start Date End Date Israel Pruitt DO [address] [place] [address] PCP - General Internal Medicine 11/10/19 06/14/23 Laron Arreola [address] [facility] [address] [place] [place], [place] 386473 Orthopedics 11/22/20 Israel Minor MD [address] [place] [address] Cardiology 02/27/22 Sanket Rob DO [address] [place] [address] Neurology 09/08/22 Ruby Duff RN [address] [place], [place] 757801 Specialty Ab Initio Etl Developer Hematology/Oncology 04/03/23 Ginna Em, RN [address] [place] [address] Desk Director Unspecified 04/15/23 Ileana Sosa RN Specialty Ab Initio Etl Developer 05/19/23 Lecturer In Marketing Relationship Specialty Start Date End Date Israel Pruitt DO [address] [place] [address] PCP - General Internal Medicine 11/10/19 06/14/23 Laron Arreola [address]75 [facility] [address] [place] [address] Orthopedics 11/22/20 Israel Minor MD [facility] [address] Cardiology 02/27/22 Randa Rowell DO [facility] [address] [place] [address] Hematology/Oncology 09/08/22 05/04/23 Sanket Rob DO [address] [place] [address] Neurology 09/08/22 Ruby Duff RN [address] [facility] [place] [address] Specialty Ab Initio Etl Developer Hematology/Oncology 04/03/23 Ginna Em RN [address] [place] [address] Desk Director Unspecified 04/15/23 Lecturer In Marketing Relationship Specialty Start Date End Date Israel Pruitt [address] [place] [address] PCP - General Internal Medicine 11/10/19 06/14/23 Ronaldo Pleitez MD [address] [place], [place] 953201 PCP - General Internal Medicine 06/15/23 Laron Arreola [address] [facility] [address] [place] [address] [place], [place] 722193 Orthopedics 11/22/20 Israel Minor MD [address] [place], [place] 616286 Cardiology 02/27/22 Sanket Rob [address] [place] [address] Neurology 09/08/22 Ruby Duff, JESSY [address] [place], [place] 715221 Specialty Ab Initio Etl Developer Hematology/Oncology 04/03/23 Ginna Em, RN [address] [place] [address] Desk Director Unspecified 04/15/23 Ileana Sosa RN Specialty Ab Initio Etl Developer 05/19/23 Lecturer In Marketing Relationship Specialty Start Date End Date Ronaldo Pleitez MD [address] [place], [place] 678571 PCP - General Internal Medicine 06/15/23 Laron Arreola [address] [place] [address] [place], [place] 621443 Orthopedics 11/22/20 Israel Minor MD [address] [place], [place] 212486 Cardiology 02/27/22 Sanket Rob DO [address] [place] [address] Neurology 09/08/22 Ruby Duff RN [address] [place], [place] 66830691 Specialty Ab Initio Etl Developer Hematology/Oncology 04/03/23 Ginna Em RN [address] [place] [id number] Desk Director Unspecified 04/15/23 Ileana Sosa RN Specialty Ab Initio Etl Developer 05/19/23 Lecturer In Marketing Relationship Specialty Start Date End Date Ronaldo Pleitez MD [address] [place], [place] 857551 PCP - General Internal Medicine 06/15/23 Laron Arreola [address] [facility] [address] [place] [place], [place] 977193 Orthopedics 11/22/20 Israel Minor MD [address] [place] [address] Cardiology 02/27/22 Sanket Rob, [address] [place] [address] Neurology 09/08/22 Ruby Duff RN [address] [place] [address] Specialty Ab Initio Etl Developer Hematology/Oncology 04/03/23 Ginna Em, RN [address] [place] [address] Desk Director Unspecified 04/15/23 Ileana Sosa RN Specialty Ab Initio Etl Developer 05/19/23 Lecturer In Marketing Relationship Specialty Start Date End Date Ronaldo Pleitez MD [address] [place], [place] 477091 PCP - General Internal Medicine 06/15/23 Laron Arreola [address] [address] Orthopedics 11/22/20 Israel Minor MD [address] [place], [place] 537366 Cardiology 02/27/22 Sanket Rob DO [address] [place] [address] Neurology 09/08/22 Ruby Duff, JESSY [address] [place], [place] 968061 Specialty Ab Initio Etl Developer Hematology/Oncology 04/03/23 Ginna Em, RN [address] [place] [address] Desk Director Unspecified 04/15/23 Ileana Sosa RN Specialty Ab Initio Etl Developer 05/19/23 Lecturer In Marketing Relationship Specialty Start Date End Date Ronaldo Pleitez MD [address] [place] [address] PCP - General Internal Medicine 06/15/23 Laron Arreola [address] [place] [address] [place] [address] Orthopedics 11/22/20 Israel Minor MD [address] [place] [address] Cardiology 02/27/22 Sanket Rob DO [address] [place] [address] Neurology 09/08/22 Ruby Duff, JESSY [address] [facility] [place] 449[address] Specialty Ab Initio Etl Developer Hematology/Oncology 04/03/23 Ginna Em RN [address] [place] [address] Desk Director Unspecified 04/15/23 Ileana Sosa RN Specialty Ab Initio Etl Developer 05/19/23 Lecturer In Marketing Relationship Specialty Start Date End Date Ronaldo Pleitez MD [address] [place], [place] 238321 PCP - General Internal Medicine 06/15/23 Laron Arreola [address] [facility] [address] [place] [place], [place] 539933 Orthopedics 11/22/20 Israel Minor MD [address] [place] [address] Cardiology 02/27/22 Sanket Rob DO [address] [place] [address] Neurology 09/08/22 Ruby Duff RN [address] [place], [place] 954561 Specialty Ab Initio Etl Developer Hematology/Oncology 04/03/23 Ginna Em, RN [address] [place] [address] Desk Director Unspecified 04/15/23 Ileana Sosa RN Specialty Ab Initio Etl Developer 05/19/23 Lecturer In Marketing Relationship Specialty Start Date End Date Ronaldo Pleitez MD [address] [place], [place] 706621 PCP - General Internal Medicine 06/15/23 Laron Arreola [address] [address] Orthopedics 11/22/20 Israel Minor MD [address] [place], [place] [address] [address] Cardiology 02/27/22 Sanket Rob DO [address] [place] [address] Neurology 09/08/22 Ruby Duff RN [address] [place], [place] 38121691 Specialty Ab Initio Etl Developer Hematology/Oncology 04/03/23 Ginna Em, RN [address] [place] [address] Desk Director Unspecified 04/15/23 Ileana Sosa RN Specialty Ab Initio Etl Developer 05/19/23 Lecturer In Marketing Relationship Specialty Start Date End Date Ronaldo Pleitez MD [address] [place], [place] 675001 PCP - General Internal Medicine 06/15/23 Laron Arreola 3975 [facility] [address] [place] [address] Orthopedics 11/22/20 Israel Minor MD [address] [place] [address] Cardiology 02/27/22 Sanket Rob, [address] [place] [address] Neurology 09/08/22 Ruby Duff, JESSY [address] [facility] [place] [address] Specialty Ab Initio Etl Developer Hematology/Oncology 04/03/23 Ginna Em RN [address] [place] [address] [phone] Desk Director Unspecified 04/15/23 Ileana Sosa RN Specialty Ab Initio Etl Developer 05/19/23 Lecturer In Marketing Relationship Specialty Start Date End Date Ronaldo Pleitez MD [address] [place], [place] 259131 PCP - General Internal Medicine 06/15/23 Laron Arreola [address] [facility] [address] [address] Orthopedics 11/22/20 Israel Minor MD [address] [place] [address] Cardiology 02/27/22 Sanket Rob, [address] [place] [address] Neurology 09/08/22 Ruby Duff, JESSY [address] [place], [place] 03834691 Specialty Ab Initio Etl Developer Hematology/Oncology 04/03/23 Ginna Em, RN [address] [place] [address] Desk Director Unspecified 04/15/23 Ileana Sosa RN Specialty Ab Initio Etl Developer 05/19/23 Lecturer In Marketing Relationship Specialty Start Date End Date Ronaldo Pleitez MD [address] [place], [place] 63966691 PCP - General Internal Medicine 06/15/23 Laron Arreola [address] [address] Orthopedics 11/22/20 Israel Minor MD [address] [place], [place] 271456 Cardiology 02/27/22 Sanket Rob DO [address] [place] [address] Neurology 09/08/22 Ruby Duff, JESSY [address] [place], [place] 47407691 Specialty Ab Initio Etl Developer Hematology/Oncology 04/03/23 Ginna Em, RN [address] [place] [address] Desk Director Unspecified 04/15/23 Ileana Sosa RN Specialty Ab Initio Etl Developer 05/19/23 Lecturer In Marketing Relationship Specialty Start Date End Date Ronaldo Pleitez MD [address] [place] [address] PCP - General Internal Medicine 06/15/23 Laron Arreola [address] [facility] [address] [place] [place], [place] 7[address]253 Orthopedics 11/22/20 Israel Minor MD [address] [place] [address] Cardiology 02/27/22 Sanket Rob DO [address] [place] [address] Neurology 09/08/22 Ruby Duff, JESSY [address] [place] [address] Specialty Ab Initio Etl Developer Hematology/Oncology 04/03/23 Ginna Em, JESSY [address] [place], [place] 2496331 Desk Director Unspecified 04/15/23 Ileana Sosa RN Specialty Ab Initio Etl Developer 05/19/23 Lecturer In Marketing Relationship Specialty Start Date End Date Ronaldo Pleitez MD [address] [place] [address] PCP - General Internal Medicine 06/15/23 Laron Arreola [address] [facility] [address] [address] Orthopedics 11/22/20 Israel Minor MD [address] [place] [address] Cardiology 02/27/22 Sanket Rob DO [address] [place] [address] Neurology 09/08/22 Ruby Duff, JESSY [address] [place], [place] 321621 Specialty Ab Initio Etl Developer Hematology/Oncology 04/03/23 Ginna Em, RN [address] [place], [place] 7378731 Desk Director Unspecified 04/15/23 Ileana Sosa RN Specialty Ab Initio Etl Developer 05/19/23 Lecturer In Marketing Relationship Specialty Start Date End Date Ronaldo Pleitez MD [address] [place], [place] 395171 PCP - General Internal Medicine 06/15/23 Laron Arreola [address] 227[address] Orthopedics 11/22/20 Israel Minor MD [address] [place], [place] 667446 Cardiology 02/27/22 Sanket Rob DO [address] [place] [address] Neurology 09/08/22 Ruby Duff RN [address] [place], [place] 12815691 Specialty Ab Initio Etl Developer Hematology/Oncology 04/03/23 Ginna Em, RN [address] [place] [address] Desk Director Unspecified 04/15/23 Ileana Sosa RN Specialty Ab Initio Etl Developer 05/19/23 Lecturer In Marketing Relationship Specialty Start Date End Date Ronaldo Pleitez MD [address] [place] [address] PCP - General Internal Medicine 06/15/23 Laron Arreola 3975 [facility] [address] [place] [address] Orthopedics 11/22/20 Israel Minor MD [address] [place] [address] Cardiology 02/27/22 Sanket Rob DO [address] [place] [address] Neurology 09/08/22 Ruby Duff, JESSY [address] [place] [address] Specialty Ab Initio Etl Developer Hematology/Oncology 04/03/23 Ginna Em, RN [address] [place] [address] Desk Director Unspecified 04/15/23 Ileana Sosa RN Specialty Ab Initio Etl Developer 05/19/23 Lecturer In Marketing Relationship Specialty Start Date End Date Ronaldo Pleitez MD [address] [place] [address] PCP - General Internal Medicine 06/15/23 Laron Arreola [address] 634693 Orthopedics 11/22/20 Israel Minor MD [address] [place] [address] Cardiology 02/27/22 Sanket Rob DO [address] [place] [address] Neurology 09/08/22 Ruby Duff RN [address] [facility] [place] 14855691 Specialty Ab Initio Etl Developer Hematology/Oncology 04/03/23 Ginna Em, RN [address] [place], [place] 1948631 Desk Director Unspecified 04/15/23 Ileana Sosa RN Specialty Ab Initio Etl Developer 05/19/23 Lecturer In Marketing Relationship Specialty Start Date End Date Ronaldo Pleitez MD [address] [place], [place] 054331 PCP - General Internal Medicine 06/15/23 Laron Arreola [address]75 [facility] [address] [place] [address] Orthopedics 11/22/20 Israel Minor MD [address] [place] [address] Cardiology 02/27/22 Sanket Rob, [address] [place] [address] Neurology 09/08/22 Ruby Duff RN [address] [place], [place] 38564691 Specialty Ab Initio Etl Developer Hematology/Oncology 04/03/23 Ginna Em RN [address] [place], [place] 9701031 Desk Director Unspecified 04/15/23 Ileana Sosa RN Specialty Ab Initio Etl Developer 05/19/23 Lecturer In Marketing Relationship Specialty Start Date End Date Ronaldo Pleitez MD [address] [place], [place] 520971 PCP - General Internal Medicine 06/15/23 Laron Arreola [address] [facility] [address] [facility] [address] [place] [address] Orthopedics 11/22/20 Israel Minor MD [address] [place], [place] 818956 Cardiology 02/27/22 Sanket Rob DO [address] [place] [address] Neurology 09/08/22 Ruby Duff, JESSY [address] [place] [address] Specialty Ab Initio Etl Developer Hematology/Oncology 04/03/23 Ginna Em, RN [address] [place] [id number] Desk Director Unspecified 04/15/23 Ileana Sosa RN Specialty Ab Initio Etl Developer 05/19/23 Lecturer In Marketing Relationship Specialty Start Date End Date Ronaldo Pleitez MD [address] [place] [address] PCP - General Internal Medicine 06/15/23 Laron Arreola [address] [facility] [address] [facility] [address] [place] [address] Orthopedics 11/22/20 Israel Minor MD [address] [place] [address] Cardiology 02/27/22 Sanket Rob DO [address] [place] [address] Neurology 09/08/22 Ruby Duff RN [address] [place] [address] Specialty Ab Initio Etl Developer Hematology/Oncology 04/03/23 Ginna Em, JESSY [address] [place] [address] Desk Director Unspecified 04/15/23 Ileana Sosa RN Specialty Ab Initio Etl Developer 05/19/23 Lecturer In Marketing Relationship Specialty Start Date End Date Ronaldo Pleitez MD [address] [place], [place] 08153691 PCP - General Internal Medicine 06/15/23 Laron Arreola [address] 0465[address] Orthopedics 11/22/20 Israel Minor MD [address] [place] [address] Cardiology 02/27/22 Sanket Rob, [address] [place] [address] Neurology 09/08/22 Ruby Duff, JESSY [address] [place] [address] Specialty Ab Initio Etl Developer Hematology/Oncology 04/03/23 Ginna Em RN [address] [place], [place] 5871259 Desk Director Unspecified 04/15/23 Ileana Sosa, RN Specialty Ab Initio Etl Developer 05/19/23 Lecturer In Marketing Relationship Specialty Start Date End Date Ronaldo Pleitez MD [address] [place], [place] 310021 PCP - General Internal Medicine 06/15/23 Laron Arreola [address] [facility] [address] [place] [address] Orthopedics 11/22/20 Israel Minor MD [facility] [address] Cardiology 02/27/22 Sanket Rob DO [address] [place] [address] Neurology 09/08/22 Ruby Duff, JESSY [address] [place], [place] 208831 Specialty Ab Initio Etl Developer Hematology/Oncology 04/03/23 Ginna Em, RN [address] [place], [place] 4949531 Desk Director Unspecified 04/15/23 Ileana Sosa, RN Specialty Ab Initio Etl Developer 05/19/23 Lecturer In Marketing Relationship Specialty Start Date End Date Ronaldo Pleitez MD [address] [place], [place] 901121 PCP - General Internal Medicine 06/15/23 Laron Arreola [address] [facility] [address] [facility] [address] [place], [place] 247653 Orthopedics 11/22/20 Israel Minor MD [address] [place] [address] Cardiology 02/27/22 Sanket Rob DO [address] [place] [address] Neurology 09/08/22 Ruby Duff RN [address] [place], [place] 648991 Specialty Ab Initio Etl Developer Hematology/Oncology 04/03/23 Ginna Em RN [address] [place] [address] [id number] Desk Director Unspecified 04/15/23 Ileana Sosa RN Specialty Ab Initio Etl Developer 05/19/23 Lecturer In Marketing Relationship Specialty Start Date End Date Ronaldo Pleitez MD [address] [place], [place] 506771 PCP - General Internal Medicine 06/15/23 Laron Arreola [address] [address] Orthopedics 11/22/20 Israel Minor MD [address] [place] [address] Cardiology 02/27/22 Sanket Rob, [address] [place] [address] Neurology 09/08/22 uRby Duff, JESSY [address] [facility] [place], [place] 44900[address] Specialty Ab Initio Etl Developer Hematology/Oncology 04/03/23 Ileana Sosa RN Specialty Ab Initio Etl Developer 05/19/23 Arabella Moreno, MANAGER DAIRY.OFFICE MACHINES SALES REPRESENTATIVE [address] [place] [address] Photographer'S Assistant Internal Medicine 10/17/24 Lecturer In Marketing Relationship Specialty Start Date End Date Ronaldo Pleitez MD [address] [place], [place] 874931 PCP - General Internal Medicine 06/15/23 Laron Arreola [address] [facility] [address] [address]18[address] Orthopedics 11/22/20 Israel Minor MD [address] [place], [place] 913386 Cardiology 02/27/22 Sanket Rob DO [address] [place] [address] Neurology 09/08/22 Ruby Duff, JESSY [address] [place] [address] Specialty Ab Initio Etl Developer Hematology/Oncology 04/03/23 Ileana Sosa RN Specialty Ab Initio Etl Developer 05/19/23 Arabella Moreno, MANAGER DAIRY.OFFICE MACHINES SALES REPRESENTATIVE [address] [place] [address] Photographer'S Assistant Internal Medicine 10/17/24 Lecturer In Marketing Relationship Specialty Start Date End Date Ronaldo Pleitez MD [address] [place] [address] PCP - General Internal Medicine 06/15/23 Laron Arreola [address] [facility] [address] [facility] [address] [place] [address] Orthopedics 11/22/20 Israel Minor MD [address] [place] [address] Cardiology 02/27/22 Sanket Rob DO [address] [place] [address] Neurology 09/08/22 Ruby Duff, JESSY [address] [place] [address] Specialty Ab Initio Etl Developer Hematology/Oncology 04/03/23 Ileana Sosa RN Specialty Ab Initio Etl Developer 05/19/23 Arabella Moreno, MANAGER DAIRY.OFFICE MACHINES SALES REPRESENTATIVE [address] [place] [address] Photographer'S Assistant Internal Medicine 10/17/24 Lecturer In Marketing Relationship Specialty Start Date End Date Ronaldo Pleitez MD [address] [place] [address] PCP - General Internal Medicine 06/15/23 Laron Arreola 3975 [facility] [address] [place] [address] Orthopedics 11/22/20 Israel Minor MD [address] [place] [address] Cardiology 02/27/22 Sanket Rob DO [address] [place] [address] Neurology 09/08/22 Ruby Duff RN [address] [place] [address] Specialty Ab Initio Etl Developer Hematology/Oncology 04/03/23 Ileana Sosa RN Specialty Ab Initio Etl Developer 05/19/23 Arabella Moreno, MANAGER DAIRY.OFFICE MACHINES SALES REPRESENTATIVE [address] [place] [address] Photographer'S Assistant Internal Medicine 10/17/24 Lecturer In Marketing Relationship Specialty Start Date End Date Ronaldo Pleitez MD [address] [place], [place] 353431 PCP - General Internal Medicine 06/15/23 Laron Arreola [address]75 [facility] [address] [place], [place] 748813 Orthopedics 11/22/20 Israel Minor MD [address] [place] [address] Cardiology 02/27/22 Sanket Rob DO [address] [facility] [address] [place] [address] Neurology 09/08/22 Ruby Duff RN [address] [place] [address] Specialty Ab Initio Etl Developer Hematology/Oncology 04/03/23 Ileana Sosa RN Specialty Ab Initio Etl Developer 05/19/23 Arabella Moreno, MANAGER DAIRY.OFFICE MACHINES SALES REPRESENTATIVE [address] [place] [address] Photographer'S Assistant Internal Medicine 10/17/24 Lecturer In Marketing Relationship Specialty Start Date End Date Ronaldo Pleitez MD [address] [place] [address] PCP - General Internal Medicine 06/15/23 Laron Arreola [address] [facility] [address] [facility] [address] [place] [address] Orthopedics 11/22/20 Israel Minor MD [facility] [address] Cardiology 02/27/22 Sanket Rob DO [address] [facility] [address] [place] [address] Neurology 09/08/22 Ruby Duff, JESSY [address] [place], [place] 379361 Specialty Ab Initio Etl Developer Hematology/Oncology 04/03/23 Ileana Sosa RN Specialty Ab Initio Etl Developer 05/19/23 Arabella Moreno, MANAGER DAIRY.OFFICE MACHINES SALES REPRESENTATIVE [address] [place] [address] Photographer'S Assistant Internal Medicine 10/17/24 Lecturer In Marketing Relationship Specialty Start Date End Date Ronaldo Pleitez MD [address] [place] [address] PCP - General Internal Medicine 06/15/23 Laron Arreola [address] [facility] [address] [facility] [address] [place] [address] Orthopedics 11/22/20 Israel Minor MD [address] [place], [place] 488046 Cardiology 02/27/22 Sanket Rob, [address] [facility] [address] [place] [address] Neurology 09/08/22 Ruby Duff RN [address] [place], [place] [id number] Specialty Ab Initio Etl Developer Hematology/Oncology 04/03/23 Ileana Sosa RN Specialty Ab Initio Etl Developer 05/19/23 Arabella Moreno, MANAGER DAIRY.OFFICE MACHINES SALES REPRESENTATIVE [address] [place], [place] 399221 Photographer'S Assistant Internal Medicine 10/17/24 Lecturer In Marketing Relationship Specialty Start Date End Date Ronaldo Pleitez MD [address] [place], [place] 94174691 PCP - General Internal Medicine 06/15/23 Laron Arreola [address] [facility] [address] [place], [place] [id number] Orthopedics 11/22/20 Israel Minor MD [address] [place] [address] Cardiology 02/27/22 Sanket Rob, [address] [facility] [address] [place] [address] Neurology 09/08/22 Ruby Duff RN [address] [place] [address] Specialty Ab Initio Etl Developer Hematology/Oncology 04/03/23 Ileana Sosa, RN Specialty Ab Initio Etl Developer 05/19/23 Arabella Moreno, MANAGER DAIRY.[employer] SALES REPRESENTATIVE [address] [place] [address] Photographer'S Assistant Internal Medicine 10/17/24 Lecturer In Marketing Relationship Specialty Start Date End Date Ronaldo Pleitez MD [address] [place] [address] PCP - General Internal Medicine 06/15/23 Laron Arreola [address] [facility] [address] [place] [address] Orthopedics 11/22/20 Israel Minor MD [address] [place] [address] Cardiology 02/27/22 Sanket Rob DO [address] [facility] [address] [place] [address] Neurology 09/08/22 Ruby Duff RN [address] [place] [address] Specialty Ab Initio Etl Developer Hematology/Oncology 04/03/23 Ileana Sosa, RN Specialty Ab Initio Etl Developer 05/19/23 Arabella Moreno, MANAGER DAIRY.[employer] SALES REPRESENTATIVE [address] [place] [address] Photographer'S Assistant Internal Medicine 10/17/24 Lecturer In Marketing Relationship Specialty Start Date End Date Ronaldo Pleitez MD [address] [place] [address] PCP - General Internal Medicine 06/15/23 Laron Arreola [address] [facility] [address] [place] [address] Orthopedics 11/22/20 Israel Minor MD [address] [place] [address] Cardiology 02/27/22 Sanket Rob DO [address] [facility] [address] [place] [address] Neurology 09/08/22 Ruby Duff, JESSY [address] [place] [address] Specialty Ab Initio Etl Developer Hematology/Oncology 04/03/23 Ileana Sosa, JESSY Specialty Ab Initio Etl Developer 05/19/23 Arabella Moreno, MANAGER DAIRY.[employer] SALES REPRESENTATIVE [address] [place] [address] Photographer'S Assistant Internal Medicine 10/17/24 Lecturer In Marketing Relationship Specialty Start Date End Date Ronaldo Pleitez MD [address] [place] [address] PCP - General Internal Medicine 06/15/23 Laron Arreola [address] [facility] [address] [place] [address] Orthopedics 11/22/20 Israel Minor MD [address] [place] [address] Cardiology 02/27/22 Sanket Rob DO [address] [facility] [address] [place] [address] Neurology 09/08/22 Ruby Duff RN [address] [place] [address] Specialty Ab Initio Etl Developer Hematology/Oncology 04/03/23 Ileana Sosa RN Specialty Ab Initio Etl Developer 05/19/23 Arabella Moreno, MANAGER DAIRY.[facility] [address] [place], [place] [address] Photographer'S Assistant Internal Medicine 10/17/24 Lecturer In Marketing Relationship Specialty Start Date End Date Ronaldo Pleitez MD [address] [place], [place] [address] PCP - General Internal Medicine 06/15/23 Laron Arreola [address] [facility] [address] [place] [address] Orthopedics 11/22/20 Israel Minor MD [address] [place] [address] Cardiology 02/27/22 Sanket Rob DO [address] [facility] [address] [place] [address] Neurology 09/08/22 Ruby Duff RN [address] [facility] [place] [place] [address] Specialty Ab Initio Etl Developer Hematology/Oncology 04/03/23 Ileana Sosa, RN Specialty Ab Initio Etl Developer 05/19/23 Arabella Moreno, MANAGER DAIRY.[employer] SALES REPRESENTATIVE [address] [place] [address] Photographer'S Assistant Internal Medicine 10/17/24 Lecturer In Marketing Relationship Specialty Start Date End Date Ronaldo Pleitez MD [address] [place] [address] PCP - General Internal Medicine 06/15/23 Laron Arreola [address] [facility] [address] [place] [place], [place] [address] Orthopedics 11/22/20 Israel Minor MD [address] [place] [address] Cardiology 02/27/22 Sanket Rob DO [address] [facility] [address] [place] [address] Neurology 09/08/22 Ruby Duff, JESSY [address] [place] [address] Specialty Ab Initio Etl Developer Hematology/Oncology 04/03/23 Ileana Sosa RN Specialty Ab Initio Etl Developer 05/19/23 Arabella Moreno, MANAGER DAIRY.[employer] SALES REPRESENTATIVE [address] [place] [address] Photographer'S Assistant Internal Medicine 10/17/24 Lecturer In Marketing Relationship Specialty Start Date End Date Ronaldo Pleitez MD [address] [place] [address] PCP - General Internal Medicine 06/15/23 Laron Arreola [address] [facility] [address] [place] [address] Orthopedics 11/22/20 Israel Minor MD [address] [place] [address] Cardiology 02/27/22 Sanket Rob DO [address] [facility] [address] [place] [address] Neurology 09/08/22 Ruby Duff RN [address] [place] [address] Specialty Ab Initio Etl Developer Hematology/Oncology 04/03/23 Ileana Sosa RN Specialty Ab Initio Etl Developer 05/19/23 Arabella Moreno, MANAGER DAIRY.[employer] SALES REPRESENTATIVE [address] [place], [place] [address] Photographer'S Assistant Internal Medicine 10/17/24 Lecturer In Marketing Relationship Specialty Start Date End Date Ronaldo Pleitez MD [address] [place] [address] PCP - General Internal Medicine 06/15/23 Laron Arreola [address] [facility] [address] [place] [address] Orthopedics 11/22/20 Israel Minor MD [address] [place] [address] Cardiology 02/27/22 Sanket oRb DO [address] [facility] [address] [place] [address] Neurology 09/08/22 Ruby Duff RN [address] [place], [place] [address] Specialty Ab Initio Etl Developer Hematology/Oncology 04/03/23 Ileana Sosa RN Specialty Ab Initio Etl Developer 05/19/23 Arabella Moreno, MANAGER DAIRY.[facility] [address] [place], [place] [address] Photographer'S Assistant Internal Medicine 10/17/24 Lecturer In Marketing Relationship Specialty Start Date End Date Ronaldo Pleitez MD [address] [place], [place] [address] PCP - General Internal Medicine 06/15/23 Laron Arreola [address] [facility] [address] [place] [place], [place] [address] Orthopedics 11/22/20 Israel Minor MD [address] [place] [address] Cardiology 02/27/22 Sanket Rob DO [address] [facility] [address] [place] [address] Neurology 09/08/22 Ruby Duff RN [address] [place], [place] [address] Specialty Ab Initio Etl Developer Hematology/Oncology 04/03/23 Ileana Sosa RN Specialty Ab Initio Etl Developer 05/19/23 Arabella Moreno, MANAGER DAIRY.[employer] SALES REPRESENTATIVE [address] [facility] [place] [address] Photographer'S Assistant Internal Medicine 10/17/24 Lecturer In Marketing Relationship Specialty Start Date End Date Ronaldo Pleitez MD [address] [facility] [place], [place] [address] PCP - General Internal Medicine 06/15/23 Laron Arreola [address] [facility] [address] [place], [place] [address] Orthopedics 11/22/20 Israel Minor MD [address] [place] [address] Cardiology 02/27/22 Sanket Rob DO [address] [facility] [address] [place] [address] Neurology 09/08/22 Ruby Duff, JESSY [address] [place] [address] Specialty Ab Initio Etl Developer Hematology/Oncology 04/03/23 Ileana Sosa RN Specialty Ab Initio Etl Developer 05/19/23 Arabella Moreno, MANAGER DAIRY.[employer] SALES REPRESENTATIVE [address] [facility] [place] [address] Photographer'S Assistant Internal Medicine 10/17/24 Lecturer In Marketing Relationship Specialty Start Date End Date Ronaldo Pleitez MD [address] [facility] [place] [address] PCP - General Internal Medicine 06/15/23 Laron Arreola [address] [facility] [address] [place] [address] Orthopedics 11/22/20 Israel Minor MD [address] [place] [address] Cardiology 02/27/22 Sanket Rob DO [address] [facility] [address] [place] [address] Neurology 09/08/22 Ruby Duff RN [address] [place] [address] Specialty Ab Initio Etl Developer Hematology/Oncology 04/03/23 Ileana Sosa RN Specialty Ab Initio Etl Developer 05/19/23 Arabella Moreno, MANAGER DAIRY.[employer] SALES REPRESENTATIVE [address] [place] [address] Photographer'S Assistant Internal Medicine 10/17/24 Lecturer In Marketing Relationship Specialty Start Date End Date Ronaldo Pleitez MD [address] [place] [address] PCP - General Internal Medicine 06/15/23 Laron Arreola [address] [facility] [address] [place] [address] Orthopedics 11/22/20 Israel Minor MD [address] [place] [address] Cardiology 02/27/22 Sanket Rob DO [address] [facility] [address] [place] [address] Neurology 09/08/22 Ruby Duff RN [address] [place], [place] [address] Specialty Ab Initio Etl Developer Hematology/Oncology 04/03/23 Ileana Sosa RN Specialty Ab Initio Etl Developer 05/19/23 Arabella Moreno, MANAGER DAIRY.[employer] SALES REPRESENTATIVE [address] [place] [address] Photographer'S Assistant Internal Medicine 10/17/24 Lecturer In Marketing Relationship Specialty Start Date End Date Ronaldo Pleitez MD [address] [place], [place] [address] PCP - General Internal Medicine 06/15/23 Laron Arreola [address] [facility] [address] [place] [place], [place] [address] Orthopedics 11/22/20 Israel Minor MD [address] [place] [address] Cardiology 02/27/22 Sanket Rob DO [address] [facility] [address] [place] [address] Neurology 09/08/22 Ruby Duff RN [address] [place], [place] [address] Specialty Ab Initio Etl Developer Hematology/Oncology 04/03/23 Ileana Sosa RN Specialty Ab Initio Etl Developer 05/19/23 Arabella Moreno, MANAGER DAIRY.[employer] SALES REPRESENTATIVE [address] [place] [address] Photographer'S Assistant Internal Medicine 10/17/24 Lecturer In Marketing Relationship Specialty Start Date End Date Ronaldo Pleitez MD [address] [place] [address] PCP - General Internal Medicine 06/15/23 Laron Arreola [address] [facility] [address] [place] [address] Orthopedics 11/22/20 Israel Minor MD [address] [place] [address] Cardiology 02/27/22 Sanket Rob DO [address] [facility] [address] [place] [address] Neurology 09/08/22 Ruby Duff, JESSY [address] [place] [address] Specialty Ab Initio Etl Developer Hematology/Oncology 04/03/23 Ileana Sosa RN Specialty Ab Initio Etl Developer 05/19/23 Arabella Moreno, MANAGER DAIRY.[employer] SALES REPRESENTATIVE [address] [place] [address] Photographer'S Assistant Internal Medicine 10/17/24 Lecturer In Marketing Relationship Specialty Start Date End Date Ronaldo Pleitez MD [address] [place] [address] PCP - General Internal Medicine 06/15/23 [facility] Arreola [address] [facility] [address] [place] [address] Orthopedics 11/22/20 Israel Minor MD [address] [place] [address] Cardiology 02/27/22 Sanket RobrtDO [address] [facility] [address] [place] [address] Neurology 09/08/22 Ruby Duff, JESSY [address] [place], [place] [address] Specialty Ab Initio Etl Developer Hematology/Oncology 04/03/23 Ileana Sosa RN Specialty Ab Initio Etl Developer 05/19/23 Arabella Moreno, MANAGER DAIRY.[employer] SALES REPRESENTATIVE [address] [place], [place] [address] Photographer'S Assistant Internal Medicine 10/17/24 PRN Active and Recently Administ ered Medications (unrecognized section and content) Medication Order 10/22/2022 10/23/2022 10/24/2022 fentaNYL 50 mcg/mL injection (SUBLIMAZE) INTRAVENOUS, X (OR/PROCEDURE) PRN, Starting on Thu10/24/22 at 1221, Until 10/25/22 at 0303, Intraprocedure 1221 (Given - Provid er: Charlette Herrera RN) fentaNYL 50 mcg/mL injection (SUBLIMAZE) INTRAVENOUS, X (OR/PROCEDURE) PRN, Starting on Thu10/24/22 at 1226, Until 10/25/22 at 0303, Intraprocedure 1226 (Given - Provid er: Charlette Herrera RN) lidocaine (PF) 20 mg/mL (2 %) injection (XYLOCAINE) SUBCUTANEOUS, X (OR/PROCEDURE) PRN, Starting on Thu10/24/22 at 1223, Until 10/25/22 at 0303, Intraprocedure 1223 (Given - Provid er: Jesus Manuel White MD, MD) midazolam (PF) injection (VERSED) INTRAVENOUS, X (OR/PROCEDURE) PRN, Starting on Thu10/24/22 at 1221, Until 10/25/22 at 0303, Intraprocedure 1221 (Given - Provid er: Charlette Herrera RN) NaCl 0.9% iv infusion INTRAVENOUS, X (OR/PROCEDURE) CONTINUOUS, Starting on Thu10/24/22 at 1208, Until 10/25/22 at 0303, Intraprocedure 1208 (New Bag/Syring e/Bottle - Provider: Charlette Herrera RN)1239 (Infusion Complete - Provider: Charlette Herrera RN) sodium chloride 0.9 % (flush) (BD POSIFLUSH) INTRAVENOUS, X (OR/PROCEDURE) PRN, Starting on Thu10/24/22 at 1207, Until 10/25/22 at 0303, Intraprocedure 1207 (Given - Provid er: Charlette Herrera RN) PRN Medication Order 12/03/2022 12/04/2022 12/05/2022 ceFAZolin iv piggyback 2 g in D5W (iso-osmotic) 100 mL (ANCEF) INTRAVENOUS, Administer over 30 Minutes, X (OR/PROCEDURE) CONTINUOUS, Starting on Thu12/05/22 at 1021, Until 12/06/22 at 0303, Intraprocedure 1021 (New Bag/Syring e/Bottle - Provider: Juanita Tineo RN)1044 (Infusion Complete - Provider: Juanita Tineo RN) heparin 100 unit/mL injection X (OR/PROCEDURE) PRN, Starting on Thu12/05/22 at 1052, Until 12/06/22 at 0303, Intraprocedure 1052 (Given - Provid er: Manjeet Butler MD - Comment: port) lidocaine 2%-EPINEPHrine 1:100,000 injection OTHER, X (OR/PROCEDURE) PRN, Starting on Thu12/05/22 at 1041, Until 12/06/22 at 0303, Intraprocedure 1041 (Given - Provid er: Manjeet Butler MD) topical skin adhesive (DERMABOND) TOPICAL, X (OR/PROCEDURE) PRN, Starting on Thu12/05/22 at 1100, Until 12/06/22 at 0303, Intraprocedure 1100 (Given - Provid er: Manjeet Butler MD) Goals (unrecognized section and content) Goals may be documented in a n alternate section FOR RECORDS PERTAINING TO PATIENTS WHO ARE OR HAVE BEEN ENROLLED IN A CHEMICAL DEPENDENCY/SUBSTANCEABUSE PROGRAM, SOME INFORMATION MAY BE OMITTED. This clinical summary was aggregated from multiple sources. Caution should be exercised in using it in the provision of clinical care. This summary normalizes information from multiple sources, and as a consequence, information in this document may materially change the coding, format and clinical context of patient data. In addition, data may be omitted in some cases. CLINICAL DECISIONS SHOULD BE BASED ON THE PRIMARY CLINICAL RECORDS. [employer] [facility]. provides no warranty or guarantee of the accuracy or completeness of information in this document.
[2025-06-18 23:37] LABS: Anion Gap 10 (5-15); BUN 29 mg/dL (4-19); BUN/Creat Ratio 21.2 RATIO (10-20); Calcium,Total 9.0 mg/dL (7.6-11.0); Carbon Dioxide 30.8 mmol/L (21.0-32.0); Chloride 98 mmol/L (98-108); Estimated Creatinine Clearance 38.13 ml/min (50-250); Glucose 158 mg/dL (70-99); Potassium 4.6 mmol/L (3.3-5.1)
[2025-06-19] VITALS: BP 123/71; PULSE 75; RESP 20; TEMP 36.4; O2SAT 95
[2025-06-19 00:28] LABS: Anisocytosis 3+
[2025-06-19 00:29] VITALS: BP 122/72; PULSE 82; RESP 20; TEMP 36.4; O2SAT 97
[2025-06-19 00:31] LABS: Polychromasia 1+
[2025-06-19 00:35] LABS: Basophilic Stippling RARE
[2025-06-19 00:36] LABS: Hypochromasia RARE
[2025-06-19 01:29] LABS: Other RBC Morphology 1+
== END 2025-06-19 00:39 | disposition home or self-care (01) ==
PROVIDERS: Emergency Provider Student in an Organized Health Care Education/Training Program; PCP Internal Medicine; Visit Provider Student in an Organized Health Care Education/Training Program
DX: L03.116 Cellulitis of left lower limb (principal); L02.416 Cutaneous abscess of left lower limb; N17.9 Acute kidney failure, unspecified; I10 Essential (primary) hypertension; I25.10 Atherosclerotic heart disease of native coronary artery without angina pectoris; E78.5 Hyperlipidemia, unspecified; Z87.891 Personal history of nicotine dependence; Z79.899 Other long term (current) drug therapy; Z79.01 Long term (current) use of anticoagulants
CPT/HCPCS: 80048; 85025; 93005; 99283; A4216

== ENCOUNTER → 2025-06-19 | Outpatient (CLI) | payer MEDICARE, SELFPAY ==
--- NOTE | 2025-06-19 09:55 | VDLE_ITS ---
Reason For Study Reason For Study: LLE Swelling Procedure LEFT This is a venous duplex using B-mode, color flow and GSV is normal. spectral Doppler. CFV is compressible, spontaneous, competent, and Exam performed in department. demonstrates pulsatile venous flow. The exam was diagnostic. FV is compressible, spontaneous, competent and A preliminary report was called and/or faxed to [facility] demonstrates pulsatile venous flow. ED. POP V is compressible, spontaneous, competent and demonstrates pulsatile venous flow. T/P Trunk is compressible. PTV is compressible. LT PerV is compressible. Anechoic nonvascularized area noted in Lt Pop Fossa measuring 6.01cm x 1.41cm. VL/Venous Duplex US, Unilateral Interpretation Summary Deep veins of the left lower extremity are patent and compressible segmentally. There is no evidence of left lower extremity deep vein thrombosis. The left great saphenous vein appears patent an d compressible segmentally. Anechoic nonvascularized area noted in left popliteal Fossa measuring 6.01cm x 1.41cm. Ordering Physician: Bryanna Tijerina Referring Physician: Ronaldo Murillo M.D. Performed By: Jason Griffin RVT
--- NOTE | 2025-06-19 09:55 | VDLE_ITS ---
Reason For Study Reason For Study: LLE Swelling Procedure LEFT This is a venous duplex using B-mode, color flow and GSV is normal. spectral Doppler. CFV is compressible, spontaneous, competent, and Exam performed in department. demonstrates pulsatile venous flow. The exam was diagnostic. FV is compressible, spontaneous, competent and A preliminary report was called and/or faxed to [facility] demonstrates pulsatile venous flow. ED. POP V is compressible, spontaneous, competent and demonstrates pulsatile venous flow. T/P Trunk is compressible. PTV is compressible. LT PerV is compressible. Anechoic nonvascularized area noted in Lt Pop Fossa measuring 6.01cm x 1.41cm. VL/Venous Duplex US, Unilateral Interpretation Summary Deep veins of the left lower extremity are patent and compressible segmentally. There is no evidence of left lower extremity deep vein thrombosis. The left great saphenous vein appears patent an d compressible segmentally. Anechoic nonvascularized area noted in left popliteal Fossa measuring 6.01cm x 1.41cm. Ordering Physician: Bryanna Tijerina Referring Physician: Ronaldo Murillo M.D. Performed By: Jason Griffin RVT
== END | disposition home or self-care (01) ==
LOC: CVS 09:51
PROVIDERS: PCP Internal Medicine; Referring Provider Student in an Organized Health Care Education/Training Program; Visit Provider Student in an Organized Health Care Education/Training Program
DX: R22.42 Localized swelling, mass and lump, left lower limb (principal); M79.89 Other specified soft tissue disorders
CPT/HCPCS: 93971

== ENCOUNTER 2025-06-23 13:25 | Inpatient (IN) | payer MEDICARE, SELFPAY ==
[2025-06-23 13:25] VITALS: BP 121/72; PULSE 61; RESP 16; TEMP 36.6; O2SAT 93
[2025-06-23 13:39] VITALS: BMI 28.5
--- NOTE | 2025-06-23 14:14 | EX.ED.DYSGE1 ---
HPI History of Present Illness Chief Complaint: Cellulitis Informant: patient Onset/Context/Timing Onset: Days Context: Gradual Onset Timing: Continuous Current Severity: Moderate Maximum Severity: Moderate Narrative Narrative: 89-year-old male history of stroke, prior CABG, A-fib on Xarelto and history of chronic myelogenous leukemia. Also CKD and CHF. Has chronic bilateral lower extremity swelling he developed cellulitis of the left lower leg for about a week he has been on oral antibiotics through his [facility] physicians this redness is getting worse so they sent him in to be admitted for IV antibiotics. He denies any fever or chills. Prior similar symptoms: No Recent Illness/Hospitalization: No PFSH [facility] Medical History Cellulitis CMML (chronic myelomonocytic leukemia) Lumbar stenosis Nocturnal hypoxemia Osteoarthritis Atheroembolism of foot Myasthenia gravis Pacemaker (~09/2022) Cerebral vascular accident (~08/2022) Complete heart block Coronary artery disease (~09/2022) Hypothyroidism HLD (hyperlipidemia) Benign essential HTN Home Medications ?Medication ?Instructions ?Recorded ?Last Taken ?Type aspirin 81 mg tablet,delayed 81 mg PO DAILY 04/09/23 05/14/23 History release cholecalciferol (vitamin D3) 25 25 mcg PO DAILY 04/09/23 05/14/23 History mcg (1,000 unit) tablet cyanocobalamin (vitamin B-12) 1,000 mcg PO DAILY 04/09/23 05/14/23 History 1,000 mcg capsule multivitamin 1 tab PO DAILY 04/09/23 05/14/23 History rivaroxaban 20 mg tablet (Xarelto) 20 mg PO QPM 04/09/23 05/13/23 History atorvastatin 20 mg tablet 20 mg PO QHS 05/14/23 05/13/23 History folic acid 1 mg tablet 1 mg PO BREAKFAST 30 days #30 tabs 05/18/23 Unknown Rx polyethylene glycol 3350 17 17 g PO DAILY PRN constipation 05/20/23 Unknown Rx gram/dose oral powder (Miralax) #238 grams furosemide 40 mg tablet 40 mg PO DAILY 06/18/25 Unknown History levothyroxine 100 mcg tablet 100 mcg PO DAILY 06/18/25 Unknown History (Synthroid) cephalexin 500 mg capsule 500 mg PO Q8H 5 days #15 caps 06/19/25 Unknown Rx metolazone 5 mg tablet 5 mg PO DAILY 06/23/25 Unknown History nitroglycerin 0.4 mg sublingual 0.4 mg sublingual Q5M 06/23/25 Unknown History tablet Allergy/AdvReac Type Severity Reaction Status Date / Time No Known Allergies Allergy Verified 06/23/25 13:27 Family History Mother Heart disease Father Heart disease Surgical History History of ankle surgery (~12/2020) History of arthroplasty of right shoulder (~2008) Hx of CABG (~07/2021) Social History Smoking Status: Former smoker how long ago did patient quit smokinyrs alcohol intake: current alcohol intake frequency: 0-2 drinks per day Alcohol type: beer, wine and hard liquor details: 1-2 beers per week substance use type: does not use ROS ROS ED ROS Narrative Left leg swelling and redness. Discomfort. Constitutional Constitutional ED: Denies chills or fever(s) Eyes Eyes: Denies blurry vision ENT ENT ED: Denies ear pain Cardiovascular Cardiovascular: Denies chest pain Respiratory/Chest Respiratory/Chest: Denies cough or dyspnea Gastrointestinal Gastrointestinal: Denies abdominal pain Genitourinary Genitourinary ED: Denies dysuria or hematuria Musculoskeletal Musculoskeletal: Denies arthralgias or back pain Integumentary Reports rash; Denies abscess or Abrasions Neurologic Neurologic: Denies headache(s) Psychiatric Psychiatric: Denies anxiety Endocrine Endocrinology: Denies cold intolerance Hematologic/Lymphatic Hematologic/Lymphatic: Reports none Allergic/Immunologic Allergic/Immunologic ED: Denies mouth swelling, tongue swelling or urticaria EXAM Physical Exam Narrative Exam Narrative: 89-year-old female vital signs are stable. She is afebrile. She does not look septic or toxic. She is in no acute distress. Pulse ox is 93% on room air no signs of hypoxia. H EENT exam pupils round react light. Mytrex members. Neck nontender. Lungs clear to auscultation bilaterally. Heart rate about 60 no murmur. Chest wall ribs nontender. Abdomen soft nontender. Moving all 4 extremities. Has bilateral lower extremity peripheral edema. He has redness from his toes all the way up to his knee on the left. Consistent with cellulitis. Does not eli. He has skin sore on the top of his foot. Dorsi plantarflexion intact. Calves are nontender. There is no cords. Neurologically he is awake alert. Answering questions following commands. Const Vital Signs: 06/23/25 13:25 Temperature 97.9 F Temperature Source Oral Pulse Rate 61 Respiratory Rate 16 Blood Pressure 121/72 H Blood Pressure Mean 88 Pulse Ox 93 Oxygen Delivery Method Room Air Positive well nourished and well developed; Negative for cachectic, contractures or unkempt General Appearance ED: well developed and NAD; Negative for unkempt, cachectic, contractures, cyanotic, diaphoretic or pallor Nutritional Appearance: Negative for cachectic HEENT Reports moist mucous membranes Eyes PERRL and EOMs intact bilaterally Neck no lymphadenopathy, supple and no JVD Chest Wall inspection of chest normal and palpation of chest normal Resp normal respiratory effort and clear to auscultation bilaterally Cardio regular rate, S1 normal heart sound, S2 normal heart sound and no murmurs Rhythm: abnormal rhythm GI normal to inspection, nondistended, normoactive bowel sounds, non-tender, non-distended and no masses Palpation: soft; Negative for tender, guarding or rebound tenderness present Back/Spine no CVA tenderness Extremity Negative for normal to inspection Extremity Narrative: Bilateral lower extremity edema. Left greater than right. Cellulitis left leg from the tip of his toes to just below the knee. General Extremety ED: Yes edema and tenderness General Extremity: edema Neuro oriented x3 and CN's II-XII intact bilaterally Sensorium / Orientation: alert Motor Exam: strength 5/5 throughout Psych mental status grossly normal Appearance: Negative for unkempt Skin No no rashes or lesions noted and No no wounds Skin Narrative: Left lower extremity cellulitis. Since skin wound top the left foot. General Skin Exam: Negative for jaundice or pallor MDM MDM MDM Narrative Medical decision making narrative: 89-year-old male currently has been on Keflex at home for left lower extremity cellulitis is getting worse as of improving. Failed outpatient therapy. He is on Xarelto I do not think this is a blood clot. He will be started on IV Zosyn screening labs will speak to the hospitalist about admission. Repeat exam patient is doing well. He has received IV antibiotics. MRI spoke with the hospitalist he will be admitted. He is comfortable with the plan as his family. History & Record Review Discussion w/independent historian: Patient Additional record(s) reviewed:: Prior inpatient record, Prior outpatient record, Prior ED visit and Prior labs Lab Data Attestation: I reviewed the patient's lab results. Lab results narrative: CBC shows white count 6.8 H&H 9.729 which is his baseline chronic anemia. Platelets 230. Electrolytes show sodium 138. Gap 13. BUN and creatinine are 41 and 1.43. He does have some prior renal insufficiency. Glucose 160. Labs: Laboratory Results - last 24 hr 06/23/25 14:23 WBC 6.8 RBC 2.65 L Hgb 9.7 L Hct 29.5 L MCV 111.3 H MCH 36.6 H MCHC 32.9 RDW Std Deviation 109.9 H RDW Coeff of Luis Alberto 26.7 H Plt Count 230 MPV 10.6 Immature Gran % (Auto) 0.300 Neut % (Auto) 68.2 Lymph % (Auto) 14.5 L [place] % (Auto) 15.5 H Eos % (Auto) 0.9 Baso % (Auto) 0.6 Absolute Neuts (auto) 4.7 Absolute Lymphs (auto) 0.99 Nucleated RBC % 0.7 Sodium 138 Potassium 3.3 Chloride 92 L Carbon Dioxide 32.5 H Anion Gap 13 BUN 41 H Creatinine 1.43 H Estim Creat Clear Calc 36.06 L Est GFR (MDRD) Non-Af 47 L BUN/Creatinine Ratio 28.4 H Glucose 160 H Calcium 9.0 Discharge Plan Triage Chief Complaint: Cellulitis ED Provider: Jere Gorman Dx/Rx/DC Orders Clinical Impression: Cellulitis of left leg, History of atrial fibrillation, History of stroke, History of chronic myeloid leukemia, Chronic anticoagulation Prescriptions: No Action levothyroxine [Synthroid] 112 mcg tablet 112 mcg PO DAILY furosemide [Lasix] 20 mg tablet 20 mg PO BID Patient Comments: 1 TAB IN THE AM AND 1 TAB QHS cyanocobalamin (vitamin B-12) 1,000 mcg capsule 1,000 mcg PO DAILY cholecalciferol (vitamin D3) 25 mcg (1,000 unit) tablet 25 mcg PO DAILY multivitamin Tablet 1 tab PO DAILY aspirin 81 mg tablet,delayed release (DR/EC) 81 mg PO DAILY Xarelto 20 mg tablet 20 mg PO QPM Rx Instructions: must administer with evening meal prochlorperazine maleate [Compazine] 10 mg tablet 10 mg PO BID PRN (Reason: nausea and vomiting) digoxin 125 mcg (0.125 mg) tablet 0.125 mg PO DAILY metoprolol tartrate 25 mg tablet 12.5 mg PO BID Patient Comments: take 1/2 tablet by mouth every 12 hours atorvastatin 20 mg tablet 20 mg PO QHS sennosides-docusate sodium [Stool Softener-Stimulant Laxat] 8.6-50 mg Tablet 2 tab PO BID PRN (Reason: constipation) 30 Days Qty: 120 0RF folic acid 1 mg Tablet 1 mg PO BREAKFAST 30 Days Qty: 30 2RF polyethylene glycol 3350 17 gram Powder In Packet 17 g PO DAILY 30 Days Qty: 30 0RF ferrous fumarate 325 mg (106 mg iron) tablet 325 mg PO DAILY 30 Days Qty: 0 0RF Rx Instructions: with meals levofloxacin 500 mg tablet 500 mg PO DAILY 6 Days Qty: 6 0RF polyethylene glycol 3350 [Miralax] 17 gram/dose powder 17 g PO DAILY PRN (Reason: constipation) Qty: 238 0RF furosemide 40 mg tablet 40 mg PO DAILY levothyroxine [Synthroid] 100 mcg tablet 100 mcg PO DAILY cephalexin 500 mg capsule 500 mg PO Q8H 5 Days Qty: 15 0RF Primary Care Provider: Ronaldo Murillo Referrals: Ronaldo Murillo MD [Primary Care Provider] - Print Language: Dominican Disposition Disposition: Acute Care Hospital [facility]
[2025-06-23 14:34] LABS: Hematocrit 29.5 % (40-54); Hemoglobin 9.7 g/dL (13.0-16.5); Immature Granulocytes Count 0.020 X10^3/uL (0.0-0.0); Mean Corp Hgb Conc 32.9 g/dL (32-36); Mean Corpuscular Volume 111.3 fL (80-94); Mean Platelet Vol. 10.6 fl (6.2-12.0); NRBC Flagged by Analyzer 0.7 % (0-5); POSITIVE MORPHOLOGY YES; Platelet Count 230 K/mm3 (150-450); RBC Distribution Width CV 26.7 % (11.6-14.6); Red Blood Count 2.65 M/mm3 (4.6-6.2); White Blood Count 6.8 K/mm3 (4.4-11.0)
[2025-06-23 14:39] LABS: RBC Distribution Width SD 109.9 fl (35.1-43.9)
[2025-06-23 14:41] LABS: Differential Indicated SCAN CRITERIA MET
[2025-06-23] MEDS: Piperacil/Tazobactam 4.5 GM in 0.9% Normal Saline (100mL MB+) 100 ML IV (14:46)
[2025-06-23 15:25] LABS: Anion Gap 13 (5-15); BUN 41 mg/dL (4-19); BUN/Creat Ratio 28.4 RATIO (10-20); Calcium,Total 9.0 mg/dL (7.6-11.0); Carbon Dioxide 32.5 mmol/L (21.0-32.0); Chloride 92 mmol/L (98-108); Estimated Creatinine Clearance 36.06 ml/min (50-250); Glucose 160 mg/dL (70-99); Potassium 3.3 mmol/L (3.3-5.1)
[2025-06-23 16:20] VITALS: BP 98/71; PULSE 80; RESP 15; O2SAT 99
--- NOTE | 2025-06-23 16:21 | PCM.HP.STD ---
HPI - General General Date of Admission: 06/23/25 Date of Service: 06/23/25 Chief Complaint: Increasing left lower extremity swelling HPI Narrative SRINI LOZADA, is a 89-year-old male history of CABG, CVA, pacemaker, A-fib on Xarelto, hypothyroidism, CML who presented to [place] ED 06/23/2025 with worsening cellulitis of his left lower extremity. He has chronic bilateral lower extremity swelling and about a week ago developed cellulitis of his left lower leg and has been on oral antibiotics however the redness is getting worse so he was sent to the ED to be admitted for IV antibiotics. In the ED temp 97.9, heart rate 61 and blood pressure 121/72, respiratory rate 16 and pulse ox 93% on room air. CBC with white blood cell count within normal limits and no left shift, hemoglobin 9.7 which appears baseline. BMP with a BUN of 41 and a creatinine of 1.43, only other recent labs were 5 days ago with a creatinine of 1.37 so it is possible that this is patient's baseline but labs prior to that were back in 2022 and a baseline closer to 1. Patient given IV Zosyn and hospitalist contacted for admission. Patient evaluated at bedside. Reportedly has had the symptoms for the past 1 week but has further worsened over the past several days, there has been some serious drainage with a yellow tinge but does not sound to have any overt pus. Patient denies any significant pain associated, no fevers or chills, no other new or acute complaints [facility] Medical History Cellulitis CMML (chronic myelomonocytic leukemia) Lumbar stenosis Nocturnal hypoxemia Osteoarthritis Atheroembolism of foot Myasthenia gravis Pacemaker (~09/2022) Cerebral vascular accident (~08/2022) Complete heart block Coronary artery disease (~09/2022) Hypothyroidism HLD (hyperlipidemia) Benign essential HTN Home Medications ?Medication ?Instructions ?Recorded ?Last Taken ?Type cholecalciferol (vitamin D3) 25 25 mcg PO DAILY 04/09/23 05/14/23 History mcg (1,000 unit) tablet cyanocobalamin (vitamin B-12) 1,000 mcg PO DAILY 04/09/23 05/14/23 History 1,000 mcg capsule multivitamin 1 tab PO DAILY 04/09/23 05/14/23 History rivaroxaban 20 mg tablet (Xarelto) 20 mg PO QPM 04/09/23 05/13/23 History atorvastatin 20 mg tablet 20 mg PO QHS 05/14/23 05/13/23 History folic acid 1 mg tablet 1 mg PO BREAKFAST 30 days #30 tabs 05/18/23 Unknown Rx polyethylene glycol 3350 17 17 g PO DAILY PRN constipation 05/20/23 Unknown Rx gram/dose oral powder (Miralax) #238 grams furosemide 40 mg tablet 40 mg PO DAILY 06/18/25 Unknown History levothyroxine 100 mcg tablet 100 mcg PO DAILY 06/18/25 Unknown History (Synthroid) cephalexin 500 mg capsule 500 mg PO Q8H 5 days #15 caps 06/19/25 Unknown Rx metolazone 5 mg tablet 5 mg PO DAILY 06/23/25 Unknown History nitroglycerin 0.4 mg sublingual 0.4 mg sublingual Q5M 06/23/25 Unknown History tablet Allergy/AdvReac Type Severity Reaction Status Date / Time No Known Allergies Allergy Verified 06/23/25 13:27 Family History Mother Heart disease Father Heart disease Surgical History History of ankle surgery (~12/2020) History of arthroplasty of right shoulder (~2008) Hx of CABG (~07/2021) Social History Smoking Status: Former smoker how long ago did patient quit smokinyrs alcohol intake: current alcohol intake frequency: 0-2 drinks per day Alcohol type: beer, wine and hard liquor details: 1-2 beers per week substance use type: does not use ROS ROS Narrative General: Denies fever/chills HENT: Denies headache, denies stuffy nose, denies sore throat EYES: Denies changes in vision Resp: Denies cough, denies shortness of breath Cardiac: Denies chest pain GI: Denies abdominal pain, denies changes in bowel, denies nausea/vomiting : Denies changes in urination Extremity: Denies swelling MSK: Denies weakness Neuro: Denies any numbness/tingling Heme: Denies any bleeding or bruising Skin: Erythema of left lower extremity extending up towards knee with some serous drainage Psychiatric: No complaints voiced Vital Signs Vital Signs Vital Signs: 06/23/25 13:25 06/23/25 16:20 Temperature 97.9 F Temperature Source Oral Pulse Rate 61 80 Respiratory Rate 16 15 Blood Pressure 121/72 H 98/71 Blood Pressure Mean 88 80 Pulse Ox 93 99 Oxygen Delivery Method Room Air Room Air Weight Weight: 82.826 kg Body Mass Index (BMI) 28.5 Physical Exam Narrative General: Alert, no apparent distress HEENT: Atraumatic, normocephalic Eyes: Anicteric, normal conjunctiva, extraocular movements grossly intact Neck: Supple Respiratory: No overt wheezes or rhonchi, normal respiratory effort Cardiovascular: Regular rate GI: Soft, nontender, nondistended Extremities: Edema in bilateral lower extremities around 1+ Musculoskeletal: Moving all extremities Neuro: No overt focal neurological deficits Skin: Erythema primarily of left lower extremity, some on foot and more so ankle up towards knee with some serous drainage, no pain reported on palpation or fluctuance Psych: Cooperative Results Lab / Micro Data 06/23/25 14:23 06/23/25 14:23 Labs: Laboratory Results - last 24 hr 06/23/25 14:23: WBC 6.8, RBC 2.65 L, Hgb 9.7 L, Hct 29.5 L, MCV 111.3 H, MCH 36.6 H, MCHC 32.9, RDW Std Deviation 109.9 H, RDW Coeff of Luis Alberto 26.7 H, Plt Count 230, MPV 10.6, Immature Gran % (Auto) 0.300, Neut % (Auto) 68.2, Lymph % (Auto) 14.5 L, [place] % (Auto) 15.5 H, Eos % (Auto) 0.9, Baso % (Auto) 0.6, Absolute Neuts (auto) 4.7, Absolute Lymphs (auto) 0.99, Nucleated RBC % 0.7, Sodium 138, Potassium 3.3, Chloride 92 L, Carbon Dioxide 32.5 H, Anion Gap 13, BUN 41 H, Creatinine 1.43 H, Estim Creat Clear Calc 36.06 L, Est GFR (MDRD) Non-Af 47 L, BUN/Creatinine Ratio 28.4 H, Glucose 160 H, Calcium 9.0 Assessment & Plan Assessment/Plan (1) Cellulitis of left leg: PLAN: Plan # Left lower extremity cellulitis - Failed outpatient management with oral antibiotics - Will treat with IV Unasyn, no evidence of any purulence and patient does not have known history of diabetes so feel that this would be sufficient coverage at this time - Elevate extremity #Hx of CAD -w/ previous CABG -Continue home medications # CKD stage III a -BMP with a BUN of 41 and a creatinine of 1.43, only other recent labs were 5 days ago with a creatinine of 1.37 so it is possible that this is patient's baseline but labs prior to that were back in 2022 and a baseline closer to 1 -Avoid nephrotoxic agents -Daily BMPs # History of CVA - Continue home medications - Heart healthy diet #Paroxysmal Atrial Fibrillation - Continue Xarelto #Hypothyroidism -Continue Synthroid #DVT ppx: Patient already on full dose anticoagulation with Xarelto Mary Prather MD Charges/Coding Visit Charges Inpatient E&M: 66772 Init Hosp L2
[2025-06-23 16:25] VITALS: BP 98/71; PULSE 62; RESP 18; TEMP 36.5; O2SAT 100
--- NOTE | 2025-06-23 17:10 | CM.ED ---
Social work Reason for referral: discharge planning Referral source: case find SW entered patient's room, introducing self and role at [facility]. Patient's daughter and son in law were at bedside. Patient confirmed desire to return to [facility] upon discharge, clarifying that [facility] is patient's home. Patient denied any needs during acute stay. Eveline Michel, [employer], [employer]
[2025-06-23 17:30] VITALS: BMI 28.4
[2025-06-23 17:50] VITALS: BP 117/51; PULSE 59; RESP 18; TEMP 36.1; O2SAT 93
[2025-06-23] MEDS: 0.9% Normal Saline (250mL Bag) 250 ML 15 ML IV (18:07)
[2025-06-23] MEDS: Ampicillin/Sulbactam 3 GM in 0.9% Normal Saline (100mL MB+) 100 ML IV (18:07)
[2025-06-23] MEDS: 0.9% Saline Lock 10 ML Syringe IV (18:18)
--- OUTSIDE RECORDS SUMMARY | 2025-06-23 20:01 | XMS RPT_ITS | CCD ---
Author Organization [facility] CliniSywv Care Team Providers Care Conference And Event Organiser Name Role Phone Laron Arreola MD Unavailable Tirjoania , Israel Goodson Primary Care Provide r Laron Arreola Unavailable Israel Minor MD Unavailable Zabrinaia DO, Israel Goodson Primary Care Provide r Laron Arreola Unavailable Israel Minor MD Unavailable Tere Wang RN Unavailable Laron Arreola Unavailable Tere Wang RN Unavailable BALJINDER TREVIZO Attending Unavailable BALJINDER TREVIZO Admitting Unavailable [facility] Primary Care Unavail able Eveline Dean RN Unavailable Sindel DO, Randa Unavailable Sanket Rob DO Unavailable [facility] Unavailable Edmond CASTAÑEDA, Israel Goodson Primary Care Provide r Laron Arreola Unavailable Israel Minor MD Unavailable Eveline Dean RN Unavailable Sindel DO, Randa Unavailable Sanket Rob DO Unavailable Ruby Duff RN Unavailable Ginna Em RN Unavailable [facility] Unavail able SINDEL, RANDA Referring Unavailable TIRMONIA, [facility] Unavail able JEANETH DOMÍNGUEZ Attending Unavailable TIRMONIA, [facility] Unavail able JEANETH DOMÍNGUEZ Referring Unavailable MARÍA CHANG Admitting Unavaila LARON Garcia Consulting Unavailable ARYANLURI, ALLIE Attending Unavailable TIRMONIA, [facility] Unavail able SINDEL, RANDA Referring Unavailable TIRMONIA, [facility] Unavail able VALLURI, ALLIE Referring Unavailable TIRMONIA, [facility] Unavail able STEPHEN DOTY Referring Unavailable ROSA GONZALEZ Attending Unavailable TIRMONIA, [facility] Unavail able LARON FORTUNE Referring Unavailable TIRMONIA, [facility] Unavail able SINDEL, RANDA Referring Unavailable TIRMONIA, [facility] Unavail able SINDEL, RANDA Referring Unavailable TIRMONIA, [facility] Unavail able SINDEL, RANDA Referring Unavailable TIRMONIA, [facility] Unavail able LAURI COOK Attending Unavailable SINDEL, RANDA Referring Unavailable SINDEL, RANDA Referring Unavailable TIRMONIA, [facility] Unavail able SINDEL, RANDA Referring Unavailable TIRMONIA, [facility] SKYE MAS Referring Unavailable TIRMONIA, [facility] Unavail able SINDEL, RANDA Referring Unavailable TIRMONIA, [facility] Unavail able SINDEL, RANDA Referring Unavailable TIRMONIA, [facility] Unavail able SINDEL, RANDA Referring Unavailable MANJEET BUTLER Admitting Unavailable MANJEET BUTLER Attending Unavailable TIRMONIA, [facility] Unavail able TIRMONIA, [facility] Unavail able JESUS MANUEL WHITE MD Attending Unavailable JESUS MANUEL WHITE MD Admitting Unavailable TIRMONIA, [facility] Unavail able SINDEL, RANDA Referring Unavailable TIRMONIA, [facility] Unavail able SINDEL, RANDA Referring Unavailable TIRMONIA, [facility] Unavail able TIRMONIA, [facility] Unavail able SINDEL, RANDA Referring Unavailable TIRMONIA, [facility] Unavail able SINDEL, RANDA Referring Unavailable TIRMONIA, [facility] Unavail able SINDEL, RANDA Referring Unavailable TIRMONIA, [facility] Unavail able SINDEL, RANDA Attending Unavailable TIRMONIA, [facility] Unavail able SINDEL, RANDA Referring Unavailable TIRMONIA, [facility] Unavail able SINDEL, RANDA Referring Unavailable TIRMONIA, [facility] Unavail able SINDEL, RANDA Referring Unavailable TIRMONIA, [facility] Unavail able SINDEL, RANDA Referring Unavailable TIRMONIA, [facility] Unavail able SINDEL, RANDA Attending Unavailable TIRMONIA, [facility] Unavail able SINDEL, RANDA Referring Unavailable TIRMONIA, [facility] Unavail able SINDEL, RANDA Attending Unavailable TIRMONIA, [facility] Unavail able SINDEL, RANDA Referring Unavailable SINDEL, RANDA Attending Unavailable TIRMONIA, [facility] Unavail able SINDEL, RANDA Referring Unavailable TIRMONIA, [facility] Unavail able SINDEL, RANDA Referring Unavailable TIRMONIA, [facility] Unavail able ÁNGEL, TARA A Attending Unavailable ÁNGEL, TARA A Referring Unavailable TIRMONIA, [facility] Unavail able SINDEL, RANDA Attending Unavailable TIRMONIA, [facility] Unavail able SINDEL, RANDA Referring Unavailable TIRMONIA, [facility] Unavail able SINDEL, RANDA Referring Unavailable TIRMONIA, [facility] Unavail able SINDEL, RANDA Referring Unavailable TIRMONIA, [facility] Unavail able SINDEL, RANDA Referring Unavailable TIRMONIA, [facility] Unavail able SINDEL, RANDA Referring Unavailable TIRMONIA, [facility] Unavail able SINDEL, RANDA Referring Unavailable TIRMONIA, [facility] Unavail able SINDEL, RANDA Referring Unavailable TIRMONIA, [facility] Unavail able SINDEL, RANDA Referring Unavailable TIRMONIA, [facility] Unavail able SINDEL, RANDA Referring Unavailable TIRMONIA, [facility] Unavail able SINDEL, RANDA Referring Unavailable SINDEL, RANDA Attending Unavailable TIRMONIA, [facility] Unavail able SKYE MAS Attending Unavailable Dr. Ned Dinh Attending Provider Dr. Homer Khan Attending Provider Dr. Pedro Diaz Emergency Provider Hamzah Pruitt Primary Care Provider [phone] Dr. Mary Prather Admit Provider Dr. Mary Prather Attending Provider Dr. Mary Prather Other Provider Dr. Cristobal Villafuerte Attending Provider [phone] Dr. Marshal Rebolledo Attending Provider Dr. Marshal Rebolledo Other Provider Salma, Dr. Coronel Other Provider Laron Arreola Unavailable Sheila RN, Ileana Unavailable Unavailable Valentinolivia Randa CASTAÑEDA Unavailable Israel Pruitt DO Primary Care Provide r Omega RN, Ruby Unavailable Manav JMIÉNEZ, Ginna Noel Unavailable [phone] Sheila RN, Ileana Unavailable Unavailable Ronaldo Pleitez MD Primary Care Provider Dr. Pedro Diaz Referring Provider Dr. Cristobal Villafuerte Referring Provider Ronaldo Pleitez MD Primary Care Provider Tiffanie TOOL ROOM SUPERVISOR.TUMOR REGISTRAR, Arabella M Unavailable Sanket Rob DO Unavailable [phone] Sanket Rob DO Unavailable Dr. Ronaldo Pleitez MD Primary Care Provider Lilliana CAMP, Dr. Gould Emergency Provider Unavailab IRAM Cisneros Attending Unavailable PRICILLA, KISHAN Primary Care Unavailable PRICILLA, RONALDO Ambriz Primary Care Unavailable PRICILLA, RONALDO Ambriz Primary Care Unavailable IRAM JOHNSON Attending Unavailable PRICILLA, RONALDO Ambriz Primary Care Unavailable PRICILLA, KISHAN Primary Care Unavailable Iram Johnson Attending Unavailable Iram Johnson Referring Unavailable Care Physician, No Primary Primary Care Unava ilable Pleitez, Ronaldo Primary Care Unavailable Lilliana, Bryanna Attending Unavailable Lilliana, Bryanna Referring Unavailable Pleitez, Ronaldo Primary Care Unavailable Lilliana, Bryanna Attending Unavailable Pleitez, Ronaldo Primary Care Unavailable Allegra, Ned Attending Unavailable Iram Johnson Consulting Unavailable Iram Johnson Referring Unavailable Care Physician, No Primary Primary Care Unava ilable NagCristobal perdomo Attending Unavailabl e MASCI, BALJINDER A Referring Unavailable PLEITEZ, [facility] Primary Care Unavailable MASCI, BALJINDER A Referring Unavailable PLEITEZ, [facility] Primary Care Unavailable MASCI, BALJINDER A Referring Unavailable PLEITEZ, [facility] Primary Care Unavailable MASCI, BALJINDER A Referring Unavailable PLEITEZ, [facility] Primary Care Unavailable MASCI, BALJINDER A Referring Unavailable PLEITEZ, [facility] Primary Care Unavailable MASCI, BALJINDER A Referring Unavailable PLEITEZ, [facility] Primary Care Unavailable MASCI, BALJINDER A Referring Unavailable PLEITEZ, [facility] Primary Care Unavailable MASCI, BALJINDER A Referring Unavailable PLEITEZ, [facility] Primary Care Unavailable TIFFANIE, NAZ M Attending Unavailable PLEITEZ, [facility] Primary Care Unavailable MASCI, BALJINDER A Referring Unavailable PLEITEZ, [facility] Primary Care Unavailable MASCI, BALJINDER A Referring Unavailable PLEITEZ, [facility] Primary Care Unavailable PLEITEZ, [facility] Attending Unavailable PLEITEZ, [facility] Primary Care Unavailable MASCI, BALJINDER A Referring Unavailable PLEITEZ, [facility] Primary Care Unavailable MASCI, BALJINDER A Referring Unavailable PLEITEZ, [facility] Primary Care Unavailable TIFFANIE, NAZ M Attending Unavailable PLEITEZ, [facility] Primary Care Unavailable MASCI, BALJINDER A Referring Unavailable PLEITEZ, [facility] Primary Care Unavailable MASCI, BALJINDER A Referring Unavailable PLEITEZ, [facility] Primary Care Unavailable MASCI, BALJINDER A Referring Unavailable PLEITEZ, [facility] Primary Care Unavailable MASCI, BALJINDER A Attending Unavailable MASCI, BALJINDER A Referring Unavailable PLEITEZ, [facility] Primary Care Unavailable MASCI, BALJINDER A Attending Unavailable MASCI, BALJINDER A Referring Unavailable PLEITEZ, [facility] Primary Care Unavailable MASCI, BALJINDER A Referring Unavailable PLEITEZ, [facility] Primary Care Unavailable MASCI, BALJINDER A Referring Unavailable PLEITEZ, [facility] Primary Care Unavailable MASCI, BALJINDER A Referring Unavailable PLEITEZ, KISHAN Primary Care Unavailable PLEITEZ, KISHAN Attending Unavailable PLEITEZ, KISHAN [...] Referring Unavailable PLEITEZ, KISHAN Primary Care Unavailable TIFFANIEARABELLA Attending Unavailable PLEITEZ, KISHAN Primary Care Unavailable TIFFANIEARABELLA Attending Unavailable PLEITEZ, KISHAN Primary Care Unavailable PLEITEZ, KISHAN Attending Unavailable PLEITEZ, KISHAN Primary Care Unavailable MASCI, BALJINDER A Referring Unavailable PLEITEZ, KISHAN Primary Care Unavailable MASCI, BALJINDER A Referring Unavailable PLEITEZ, KISHAN Primary Care Unavailable MASCI, BALJINDER A Referring Unavailable PLEITEZ, KISHAN Primary Care Unavailable MASCI, BALJINDER A Referring Unavailable PLEITEZ, KISHAN Primary Care Unavailable MASCI, BALJINDER A Referring Unavailable PLEITEZ, KISHAN Primary Care Unavailable PLEITEZ, KISHAN Primary Care Unavailable MASCI, BALJINDER A Referring Unavailable MASCI, BALJINDER A Referring Unavailable PLEITEZ, KISHAN Primary Care Unavailable LAURI COOK Attending Unavailable MASCI, BALJINDER A Referring Unavailable PLEITEZ, KISHAN Primary Care Unavailable DAVID CERVANTES Attending Unavailable MASCI, BALJINDER A Referring Unavailable PLEITEZ, KISHAN Primary Care Unavailable MASCI, BALJINDER A Referring Unavailable PLEITEZ, KISHAN Primary Care Unavailable MASCI, BALJINDER A Referring Unavailable PLEITEZ, KISHAN Primary Care Unavailable PLEITEZ, KISHAN Referring Unavailable PLEITEZ, KISHAN Primary Care Unavailable MASCI, BALJINDER A Referring Unavailable PLEITEZ, KISHAN Primary Care Unavailable Lilliana CAMP, Dr. Gould Attending Provider Unavailab che Tijerina MD, Dr. Gould Referring Provider Unavailab che Dinh MD, Dr. Marino Attending Provider Sherif CAMP, Dr. Oquendo Emergency Provider Dr. Jere Gorman MD Emergency Provider Crescencio CAMP, Dr. Hernandez Admit Provider [phone] Crescencio CAMP, Dr. Hernandez Attending Provider [phone] Allergies Allergy Classification Reported Allergen(s) Allergy Type Date of Onset Reaction(s) Facility HMG-CoA Reductase Inhibitors (statins) (1 source) Simvastatin Drug Allergy 2 Other: See Comments [facility] (20 sources) Simvastatin; Translations: [SIMVASTATIN] Drug Allergy 2 Other: See Comments [facility] Work Phone: Medications Current Medications Medication Drug Class(es) Dates Sig (Normalized) Sig (Original) atorvastatin 20 mg oral tablet (20 sources) HMG-CoA Reductase Inhibitor Start: 07-24-2022 End: 09-30-2023 take 0.5 tablet by mouth once daily [...] MG TABS 1 tablet daily ATORVASTATIN CALCIUM [id number] Eugenia Morgan LPN Comment on above: Take 1 tablet by vinny th once daily. Take 40 mg by mouth once daily. Take 0.5 tablets by mouth once daily. New lower dose as of Jul 24 2022 Take 20 mg by mouth once daily. cefdinir 300 mg oral capsule (4 sources) Cephalosporin Antibacterial Start: 2 End: 2 take 1 capsule by mouth twice daily cefdinir (OMNICEF) 300 mg capsule Take 1 capsule by mouth twice daily for 5 doses. 5 capsule 0 07/09/2022 07/12/2022 Active Comment on above: Take 1 capsule by mo uth twice daily for 5 doses. cephalexin 500 mg oral tablet (5 sources) Cephalosporin Antibacterial Start: 5 End: 5 take 1 tablet by mouth four times daily Cephalexin 500 mg tab Indications: Cellulitis of left leg Take 1 tablet by mouth four times daily for 5 days. 20 tablet 06/21/2025 06/26/2025 Active Start: 06-19-2025 take 1 capsule by mo ut every eight hours Cephalexin 500 mg capsule Active 500 mg PO Q8H 15 5 0 June 19, 2025 12:00am cholecalciferol 0.025 mg oral tablet (20 sources) Vitamin D Start: 04-09-2023 take 1 tablet by mouth once daily Cholecalciferol (Vitamin D3) 25 mcg (1,000 unit) tablet Active 25 ug PO DAILY April 09, 2023 12:00am Start: 08-29-2020 End: 09-30-2023 cholecalciferol (VITAMIN D3) 1,000 unit tab tablet Take by mouth once daily. 08/29/2020 Active Start: 08-29-2020 VITAMIN D3 10 MCG (400 UNIT) TABS 1 tablet once daily CHOLECALCIFEROL [id number] Patricia Paul take 1 capsule by mo ut once daily cholecalciferol, vitamin D3, 10 mcg (400 unit) cap Take 1,000 Units by mouth once daily. 0 Active take 1 capsule by mo uth once daily cholecalciferol, vitamin D3, 10 mcg (400 unit) cap Take 400 Units by mouth once daily. 0 Active Comment on above: Take 400 Units by mo ut once daily. Take 1,000 Units by mouth once daily. doxycycline monohydrate 100 mg oral capsule (2 sources) Tetracycline-cla ss Drug Start: 05-30-2025 End: 06-06-2025 take 1 capsule by mouth twice daily doxycycline monohydrate (MONODOX) 100 mg capsule Take 1 capsule by mouth two times a day for 7 days. 14 capsule 05/30/2025 06/06/2025 Active folic acid 1 mg oral tablet (20 sources) Start: 01-22-2024 take 1 tablet by mouth once daily folic acid 1 mg tablet Take 1 tablet by mouth once daily. 90 tablet 3 01/22/2024 Active Start: 05-18-2023 End: 12-23-2023 take 1 tablet by mouth at breakfast Folic Acid 1 mg Tablet Active 1 mg PO WITH BREAKFAST 30 30 2 May 18, 2023 12:00am Comment on above: Take 1 mg by mouth o nce daily. Take 1 tablet by vinny th once daily. furosemide 40 mg oral tablet (20 sources) Loop Diuretic Start: 06-18-2025 take 1 tablet by mouth once daily Furosemide 40 mg tablet Active 40 mg PO DAILY June 18, 2025 12:00am Start: 06-16-2025 take 1 tablet by vinny th twice daily in the morning furosemide (LASIX) 40 mg tablet Indications: Lymphedema of both lower extremities , Chronic heart failure with preserved ejection fraction (HCC) Take 1 tablet by mouth two times a day. AM and noon. 06/16/2025 Active Start: 01-22-2024 End: 06-21-2025 take 0.5 tablet by mouth twice daily [...] increases (no more than two days) 06/05/2025 06/21/2025 Discontinued Start: 12-08-2023 End: 01-22-2024 take 1 tablet [...] Furosemide (Lasix) 20 mg tablet Active 20 mg PO TWICE A DAY April 09, 2023 [...] times a day. AM and noon. levothyroxine sodium 0.1 mg oral tablet (20 sources) l-Thyroxine Start: End: 5 take 1 tablet by mouth once daily Levothyroxine (Levothyroxine 100 Mcg Tablet) 100 mcg tablet Active 100 ug PO DAILY June 18, 2025 12:00am Start: 03-26-2023 End: 06-23-2025 take 1 tablet by mouth once daily Levothyroxine (Synthroid) 112 mcg tablet Discontinued 112 ug PO DAILY April 09, 2023 12:00am June 23, 2025 3:37pm Start: 08-13-2021 End: 07-24-2022 take 1 tablet by mouth once daily levothyroxine (SYNTHROID) 112 mcg tablet Indications: Hypothyroidism, unspecified type Take 1 tablet by mouth once daily. 90 tablet 3 07/24/2022 Active Start: 08-29-2020 LEVOTHYROXINE SODIUM 112 MCG TABS 1 tablet once daily LEVOTHYROXINE SODIUM [id number] Patricia Paul Comment on above: TAKE 1 TABLET BY VINNY TH ONCE DAILY Take 1 tablet by vinny th once daily. Take 1 tablet by vinny th once daily. Take on empty stomach metOLazone 5 mg oral tablet (10 sources) Thiazide-like Diuretic Start: 06-21-2025 End: 06-26-2025 take 1 tablet by mouth once daily metOLazone (ZAROXOLYN) 5 mg tablet Indications: Lymphedema of both lower extremities Take 1 tablet by mouth once daily for 5 days. 5 tablet 06/21/2025 06/26/2025 Active Start: 05-08-2025 End: 05-23-2025 take 1 tablet [...] 04/06/2025 04/25/2025 Discontinued (Course of therapy completed) Multivitamin preparation (5 sources) Start: 04-09-2023 take 1 tablet by mouth once daily Multivitamin Active 1 TABLET PO DAILY April 09, 2023 12:00am MULTIVITAMIN TABLET (20 sources) Start: 12-05-2003 take 1 tablet by mouth once daily [...] 1 tablet by vinny th once daily. Multivitamin tablet (3 sources) Start: 04-09-2023 Multivitamin tablet Active 1 {tbl} PO DAILY April 09, 2023 12:00am nitroglycerin 0.4 mg sublingual tablet (20 sources) Nitrate Vasodilator Start: 06-23-2025 Nitroglycerin 0.4 mg tablet, sublingual Active 0.4 mg SL Q5M June 23, 2025 12:00am do not exceed 3 doses per episode nitroglycerin servin blingual (NITROQUICK) 0.4 mg SL tablet nitroglycerin 0.4 [...] discharge 08/01/2021 nitroglycerin 0.4 mg sublingual tablet microencapsulated potassium chloride 20 meq extended release oral tablet (5 sources) Start: 07-09-20 End: 07-19-20 22 take 1 tablet by mouth once daily potassium chloride ER (K-DUR, KLOR-CON) 20 mEq tablet Take 1 tablet by mouth once daily for 10 days. 10 tablet 0 07/09/2022 07/19/2022 Active Comment on above: Take 1 tablet by vinny th once daily for 10 days. rivaroxaban 20 mg oral tablet (20 sources) Factor Xa Inhibitor Start: 09-18-20 End: 12-23-19 take 1 tablet by mouth [...] (20 sources) Vitamin B12 Start: 04-09-20 take 1 capsule by mouth once daily Cyanocobalamin (Vitamin B-12) 1,000 mcg capsule Active 1000 ug PO DAILY April 09, 2023 12:00am Start: 08-29-2020 End: 08-22-2022 take 1 tablet by mouth once daily cyanocobalamin (VITAMIN B-12) 1,000 mcg tab Take 1,000 mcg by mouth once daily. 0 11/22/2020 08/22/2022 Discontinued (Erroneous entry) Comment on above: Take 1 tablet by vinny th once daily. As per recommendation of the patients clin asst within the [facility] in [facility] Take 1,000 mcg by mo ut once daily. Completed/Discontinued Medications Medication Drug Class(es) [...] 06/16/2024 Discontinued take 3 g by mouth ev raghu twenty-four hours ACETAMINOPHEN ORAL Take by mouth. [...] LIQD daily as directed PEDIATRIC MULTIPLE VITAMINS [id number] Eugenia Morgan LPN aspirin 81 mg delayed release oral tablet (20 sources) Platelet Aggregation Inhibitor, Nonsteroidal Anti-inflammatory Drug Start: 0 End: 5 take 1 tablet by mouth once daily Aspirin 81 mg tablet,delayed release (DR/EC) Discontinued 81 mg PO DAILY April 09, 2023 12:00am June 23, 2025 4:00pm take 81 mg by mouth once daily A DULT LOW DOSE ASPIRIN ORAL Take 81 mg by mouth once daily. Active ADULT LOW DOSE A SPIRIN ORAL Take by mouth. 0 Active Comment on above: Take 81 mg by mouth once daily. Take by mouth. 0.4 ml darbepoetin marilu 0.5 mg/ml prefilled syringe (12 sources) Erythropoiesis- stimulating Agent Start: 5 End: 5 inject 1 dose by subcutaneous injection once [...] 200 mcg, SUBCUTANEOUS, ONCE, 1 dose, On Sofya 05/11/25 at 1000, Protect from light REFRIGERATE Start: [...] (20 sources) Cardiac Glycoside Start: 04-21-2023 End: 06-23-2025 take 1 tablet by mouth once daily Digoxin 125 mcg (0.125 mg) tablet Discontinued 0.125 mg PO DAILY May 14, 2023 12:00am June 23, 2025 3:40pm Comment on above: Take 1 tablet by vinny th once daily. diphenhydrAMINE hydrochloride 25 mg / naproxen sodium 220 mg oral tablet (1 source) Histamine-1 Receptor Antagonist, Nonsteroidal Anti-inflammatory Drug Start: 08-29-2020 ALEVE PM 220-25 MG TABS 2 tablets once daily as directed NAPROXEN SOD-DIPHENHYDRAMI CO [id number] Patricia Humberto docusate sodium 50 mg / sennosides, halfway 8.6 mg oral tablet (7 sources) Start: 05-18-2023 End: 06-23-2025 Sennosides-Docusa te Sodium (Stool Softener-Stimulan t Laxat) 8.6-50 mg Tablet Discontinued 2 {tbl} PO TWICE A DAY as needed for constipation 120 30 0 May 18, 2023 12:00am June 23, 2025 3:40pm ferrous fumarate 325 mg oral tablet (20 sources) Start: 05-18-2023 End: 06-23-2025 take 1 tablet by mouth once daily at mealtime Ferrous Fumarate 325 mg (106 mg iron) tablet Discontinued 325 mg PO DAILY 0 30 0 May 18, 2023 9:40am June 23, 2025 3:40pm with meals Start: 04-09-2023 End: 12-23-2023 take 1 tablet by mouth once Ferrous Fumarate 324 mg (1 06 mg iron) tab Take 1 tablet by mouth once daily. Per [facility] readmission fax 0 04/09/2023 12/23/2023 Discontinued Start: 04-09-2023 End: 05-18-2023 take 1 tablet by mouth three times daily at mealtime Ferrous Fumarate 325 mg (106 mg iron) tablet Discontinued 325 mg PO 3 TIMES DAILY WITH MEALS April 09, 2023 12:00am May 18, 2023 9:40am with meals Comment on above: Take 1 tablet by vinny once daily. Per [facility] readmission fax ferrous sulfate 325 mg oral tablet (20 [...] capsule (1 source) Vitamin B12 Start: 09-27-20 20 ANIMI-3 1 MG CAPS 1 capsule daily [id number] 3-PHYTOSTER [id number] Eugenia Morgan LPN folic acid 1 mg / vitamin b12 0.5 mg oral tablet (1 source) Vitamin B12 End: 12-04-19 23 Vitamin P40-Bkkgw Acid 0.5-1 mg tab Vitamin B12 0 [...] on above: Take 1 capsule by mo [facility] three times daily for 90 days. levoFLOXacin 500 mg oral tablet (13 sources) Quinolone Antimicrobial Start: 05-18-20 End: 06-23-20 take 1 tablet by mouth once daily Levofloxacin 500 mg tablet Discontinued 500 mg PO DAILY 6 6 0 May 18, 2023 12:00am June 23, 2025 3:38pm Comment on above: Take by mouth once d aily. Take by mouth once d aily. X 6 days lidocaine 25 mg/ml / prilocaine 25 mg/ml topical cream (20 sources) Antiarrhythmic, Amide Local Anesthetic Start: 12-04-19 End: 06-12-20 lidocaine-prilocain e (EMLA) 2.5-2.5 % cream Apply to port [...] needed. Take 1 tablet by vinny th. metoprolol tartrate 25 mg oral tablet (20 sources) beta-Adrenergic Pritesh Start: 05-14-2023 take 12.5 mg by mouth twice daily Metoprolol Tartrate Active 12.5 MG PO TWICE A DAY May 14, 2023 12:00am Start: 04-20-2023 End: 06-23-2025 Metoprolol Tartrate 25 mg ta blet Discontinued 12.5 mg PO TWICE A DAY May 14, 2023 12:00am June 23, 2025 3:40pm Start: 04-20-2023 take 0.5 tablet by m outh once daily at bedtime metoprolol tartrate, short acting, (LOPRESSOR) 25 mg tablet Take 0.5 tablets by mouth daily at bedtime. New dose as of April 20 2023 0 04/20/2023 Active Start: 04-09-2023 End: 05-14-2023 take 0.5 tablet by mouth once daily Metoprolol Tartrate (Lopressor) 50 mg tablet Discontinued 25 mg PO DAILY April 09, 2023 12:00am May [...] New dose as of 05-26-23 (readmit orders) miconazole nitrate 0.02 mg/mg topical powder (12 sources) Azole Antifungal Start: 07-09-20 End: 08-22-20 miconazole (LOTRIMIN AF, DESENEX) 2 % powder Apply 1 application to affected area twice daily. 85 g 0 07/09/2022 08/22/2022 Discontinued (Erroneous entry) Comment on above: Apply 1 application to affected area twice daily. MULTIPLE VITAMINS-MINERALS (1 source) Start: 08-29-20 ONE DAILY MULTIVITAMIN ADULT TABS 1 tablet once daily MULTIPLE VITAMINS-MINERALS [id number] Patricia Paul naproxen sodium 220 mg oral capsule (1 source) Nonsteroidal Anti-inflammatory Drug Start: 09-27-20 ALEVE 220 MG CAPS daily as directed NAPROXEN SODIUM [id number] Eugenia Eddie PARK OMEGA-3 FATTY ACIDS (1 source) Start: 08-29-20 FISH OIL 1000 MG CAPS 1 capsule once daily OMEGA-3 FATTY ACIDS [id number] Patricia Paul ondansetron 8 mg oral tablet (20 sources) Serotonin-3 Receptor Antagonist Start: 12-04-19 End: 06-12-20 take 1 tablet by mouth every eight hours as needed Ondansetron Hcl 8 mg tablet Discontinued 8 mg PO Q8H as needed April 09, 2023 12:00am May 14, 2023 3:28pm Comment on above: Take 1 tablet by vinny th every 8 hours as needed. polyethylene glycol 3350 35576 mg powder for oral solution (20 sources) Osmotic Laxative Start: 04-09-20 End: 06-23-20 take 17 g by mouth once daily Polyethylene Glycol 3350 17 gram Powder In Packet Discontinued 17 g PO DAILY 30 30 0 May 18, 2023 12:00am June 23, 2025 3:40pm Comment on above: Take by mouth once [...] ounces of liquid and take as directed. predniSONE 10 mg oral tablet (12 sources) Start: 12-23-19 End: 01-01-20 predniSONE (DELTASONE) 10 mg tablet Indications: Right [...] tab daily for 3 days with food. prochlorperazine 10 mg oral tablet (20 sources) Phenothiazine Start: 2022 End: 2024 take 1 tablet by mouth twice daily as needed for nausea and vomiting Prochlorperazine Maleate (Compazine) 10 mg tablet Discontinued 10 mg PO TWICE A DAY as needed for nausea and vomiting May 22, 2023 12:00am June 23, 2025 3:40pm Start: 12-04-2022 End: 06-12-2023 take 1 tablet by mouth every six hours as needed Prochlorperazine Maleate (Compazine) 10 mg tablet Discontinued 10 mg PO EVERY 6 HOURS as needed April 09, 2023 12:00am May 14, 2023 3:28pm Comment on above: Take 1 tablet by vinny every 6 hours as needed. Take 10 mg by mouth every 6 hours as needed for nausea/vomiting. SENNOSIDES-DOCUSATE SODIUM ORAL (3 sources) End: 09-19-2024 [...] 0 Active take 2 tablets by mo [facility] twice daily sennosides/docusate sodium (SENNA PLUS ORAL) Take 2 tablets by mouth twice daily. 0 Active Comment on above: Take 2 tablets by mo [facility] twice daily. Take 2 tablets by [facility] as needed. 125 ml sodium chloride 9 [...] Comment on above: Take 1 tablet by [facility] once daily. Problems Active Problems Problem Classification Problem Date Documented Da te Episodic/Chronic Acute and unspecified renal failure (6 sources) Acute renal failure syndrome; Translations: [Acute kidney failure, unspecified] Onset: 5 06-19-2025 Episodic Acute cerebrovascular disease (20 sources) Cerebrovascular accident; Translations: [Cerebral infarction, unspecified] Onset: 2 Resolved: 5 Chronic Aortic and peripheral arterial embolism or thrombosis (8 sources) Lower limb arterial embolus; Translations: [Atheroembolism of unspecified lower extremity] 05-14-2023 Chronic Comment on above: rt Bacterial infection; unspecified site (12 sources) Bacteremia caused by Gram-negative bacteria; Translations: [...] block] Onset: 2 Resolved: 5 09-02-2021 Chronic Comment on above: s/p pacemaker Congestive heart failure; nonhypertensive (20 sources) Acute on chronic diastolic heart failure; Translations: [Acute on chronic diastolic (congestive) heart failure] Onset: 2 Resolved: 5 07-04-2022 Chronic Coronary atherosclerosis and other heart disease (20 sources) Coronary arteriosclerosis; Translations: [Atherosclerotic heart disease of [place] coronary artery without angina pectoris] Onset: 2 [...] Translations: [Chemotherapy-induced neutropenia (HCC)] Onset: 3 Episodic E Codes: Fall (1 source) Fall Onset: 5 Essential hypertension (20 sources) Benign essential hypertension; Translations: [Essential (primary) hypertension] Onset: 2 Resolved: 4 01-12-2012 Chronic Genitourinary symptoms and ill-defined conditions (1 source) Urinary incontinence; Translations: [Unspecified urinary incontinence] Chronic Immunity disorders (13 sources) Patient immunocompromised; Translations: [Immunodeficiency, unspecified] 05-14-2023 Chronic Immunizations and screening for infectious disease (3 sources) Immunization due; Translations: [Encounter for immunization] Episodic Late effects of cerebrovascular disease (1 source) Abnormal gait; Translations: [Other sequelae of cerebral infarction] Chronic Leukemias (20 sources) Chronic myelomonocytic leukemia; 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] Onset: 3 Chronic Leukemias (2 sources) History of myeloid leukemia; Translations: [Personal history of leukemia] 06-23-2025 Episodic Miscellaneous mental health disorders (1 source) Primary [...] Onset: 6 Resolved: 4 06-05-2006 Chronic Other aftercare (2 sources) senior care (current) use of anticoagulants; Translations: [senior care current use of anticoagulant] Onset: 3 Episodic Other circulatory disease (1 source) Abnormal peripheral pulse; Translations: [Other specified symptoms and signs involving the circulatory and respiratory systems] Episodic Other circulatory disease (1 source) Pleural friction rub; Translations: [Other specified symptoms and signs involving the circulatory and respiratory systems] 07-29-2024 Episodic Other circulatory disease (2 sources) H/O: atrial fibrillation; Translations: [Personal history of other diseases of the circulatory system] 06-23-2025 Episodic Other connective tissue disease (1 source) [...] Lymphedema, not elsewhere classified; Translations: [Lymphedema of both lower extremities] Onset: 3 Chronic Other gastrointestinal disorders (8 [...] Translations: [Cyanosis] Episodic Other lower respiratory disease (8 sources) Hypoxemia; Translations: [Hypoxemia] 05-14-2023 Episodic Other [...] ankle and foot] Onset: 0 09-28-2020 Other skin disorders (3 sources) Localized swelling of left lower leg; Translations: [Localized swelling, mass and lump, left lower limb] 06-19-2025 Episodic Other skin disorders (1 source) Localized swelling, mass and lump, left lower limb; Translations: [Localized swelling, mass and lump, left lower limb] Onset: 5 Episodic Other upper respiratory infections (1 source) Viral [...] history of other specified conditions] 06-12-2023 Episodic Residual codes; unclassified (1 source) Edema, unspecified; Translations: [Edema, unspecified] Onset: 5 Episodic Respiratory failure; insufficiency; arrest (adult) (1 source) Respiratory failure; insufficiency; arrest (adult); Translations: [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, unspecified acute renal failure type (HCC)] Onset: 5 Septicemia (except in labor) (13 sources) Sepsis; Translations: [Sepsis, unspecified organism] 05-14-2023 Episodic Skin and subcutaneous tissue infections (20 sources) Cellulitis of lower leg; Translations: [Cellulitis of right lower limb] Onset: 3 Resolved: 4 05-14-2023 Episodic Spondylosis; intervertebral disc disorders; other back problems (2 sources) Arthropathy of lumbar facet joint; Translations: [Spondylosis without myelopathy or radiculopathy, lumbar region] Onset: 2 Chronic Superficial injury; contusion (1 source) Contusion of foot; Translations: [Contusion of right foot, initial encounter] Episodic Thyroid disorders (20 sources) Hypothyroidism; Translations: [Hypothyroidism, unspecified] Onset: 5 01-29-2016 Chronic Unclassified (1 source) Established Patient Onset: 3 Unclassified (1 source) [...] unspecified; Translations: [Macrocytic anemia] Onset: 10-24-2022 Episodic Malaise and fatigue (20 sources) Asthenia; [...] sources) Long-term current use of anticoagulant; Translations: [[employer] (current) use of anticoagulants] Onset: 01-05-2023 Resolved: 01-05-2023 08-14-2021 Episodic Other aftercare (20 sources) Surgical follow-up; Translations: [Follow-up examination following surgery] Onset: 10-31-2003 Resolved: 01-02-2015 01-02-2015 Episodic Other circulatory disease (20 sources) History of cerebrovascular accident; Translations: [Personal [...] disease (2 sources) Shortness of breath; Translations: [SOB (shortness of breath)] Onset: 09-27-2024 Episodic Other male genital disorders [...] of left atrial appendage] Onset: 09-19-2024 Episodic Spondylosis; intervertebral disc disorders; other back problems (20 sources) Spinal stenosis of lumbar region; 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, lumbar region with neurogenic claudication] Onset: 06-28-2009 Resolved: 06-16-2023 07-11-2020 Episodic Unclassified (1 source) Problem Viral infection (20 sources) Verruca vulgaris; Translations: [Viral wart, unspecified] Onset: 09-29-2010 Resolved: 01-02-2015 01-02-2015 Episodic Results Test Name Value Interpretation Reference Range Facility Absolute lymphocyte countOrd ered By: Jere Gorman on 06-23-2025 Lymphocytes Auto (Unsp spec) [#/Vol] 0.99 10*3/uL 0.83-4.51 [facility] Absolute neutrophil countOrd ered By: Jere Gorman on 06-23-2025 Neutrophils (Bld) [#/Vol] 4.7 10*3/uL 2.0-7.7 [facility] Anion gap in Serum or Plasma Ordered By: Jere Gorman on 06-23-2025 Anion gap [Moles/Vol] 13 mmol/L 5-15 [facility] Automated lymphocyte count a s percentage of total leukocytesOrdered By: Jere Gorman on 06-23-2025 Lymphocytes/100 WBC Auto (Unsp spec) 14.5 % Low 19-41 [facility] BUN/creatinine ratioOrdered By: Jere Gorman on 06-23-2025 Urea nitrogen/Creatinine [Mass ratio] 28.4 mg/mg High 10-20 [facility] Basophil percentageOrdered B y: Jere Gorman on 06-23-2025 Basophils/100 WBC (Bld) 0.6 % 0-1 [facility] Carbon dioxide, total [Moles /volume] in Central venous bloodOrdered By: Jere Gorman on 06-23-2025 CO2 [Moles/Vol] 32.5 mmol/L High 21.0-32.0 [facility] Chloride assayOrdered By: Esteban Gorman on 06-23-2025 Chloride [Moles/Vol] 92 mmol/L Low 98-108 [facility] Eosinophil percentageOrdered By: Jere Gorman on 06-23-2025 Eosinophils/100 WBC (Bld) 0.9 % 0-5 [facility] Erythrocyte distribution wid th ratioOrdered By: Jere Gorman on 06-23-2025 Erythrocyte distribution width (RBC) [Ratio] 26.7 % High 11.6-14.6 [facility] Erythrocyte distribution wid th standard deviationOrdered By: Jere Gorman on 06-23-2025 Erythrocyte distribution width (RBC) [Ratio] 109.9 fl High 35.1-43.9 [facility] Glomerular filtration rate ( GFR) estimation/1.73 sq m using serum, plasma, or whole bOrdered By: Jere Gorman on 06-23-2025 GFR/1.73 sq M.predicted among non-blacks MDRD (S/P/Bld) [Vol rate/Area] 47 mL/min/{1.73_m2} Low >60 [facility] Comment on above: mL/min/1.73m2 CKD-EP I Creatinine Equation (2020) Hematocrit Auto (Bld) [Volum e fraction]Ordered By: Jere Gorman on 06-23-2025 Hematocrit (Bld) [Volume fraction] 29.5 % Low 40-54 [facility] Hemoglobin measurementOrdere d By: Jere Gorman on 06-23-2025 Hemoglobin (Bld) [Mass/Vol] 9.7 g/dL Low 13.0-16.5 [facility] Immature granulocytes/100 WB C Auto (Bld)Ordered By: Jere Gorman on 06-23-2025 Immature granulocytes/100 WBC (Bld) 0.300 % 0.0-0.9 [facility] Comment on above: IG% - Immature Granu locytes (promyelocytes, myelocytes and metamyelocytes) > 1% indicates that a LEFT SHIFT is Present. MCV (mean corpuscular volume ) determinationOrdered By: Jere Gorman on 06-23-2025 MCV (RBC) [Entitic vol] 111.3 fL High 80-94 [facility] Mean corpuscular hemoglobin (MCH) determinationOrdered By: Jere Gorman on 06-23-2025 MCH (RBC) [Entitic mass] 36.6 pg High 27.0-32.0 [facility] Mean corpuscular hemoglobin concentration (MCHC) determinationOrdered By: Jere Gorman on 06-23-2025 MCHC (RBC) [Mass/Vol] 32.9 g/dL 32-36 [facility] Mean platelet volume determi nationOrdered By: Jere Gorman on 06-23-2025 Platelet mean volume (Bld) [Entitic vol] 10.6 fL 6.2-12.0 [facility] Monocyte percentageOrdered B y: Jere Gorman on 06-23-2025 Monocytes/100 WBC (Bld) 15.5 % High 0-10 [facility] Neutrophil percentageOrdered By: Jere Gorman on 06-23-2025 Neutrophils/100 WBC (Bld) 68.2 % 47-70 [facility] Nucleated red blood cell per centageOrdered By: Jere Gorman on 06-23-2025 Nucleated RBC/100 WBC (Bld) [Ratio] 0.7 % 0-5 [facility] Platelet countOrdered By: Esteban Gorman on 06-23-2025 Platelets (Bld) [#/Vol] 230 10*3/uL 150-450 [facility] Potassium measurement (mass/ volume)Ordered By: Jere Gorman on 06-23-2025 Potassium (Unsp spec) [Mass/Vol] 3.3 mmol/L 3.3-5.1 [facility] RBC Auto (Bld) [#/Vol]Ordere d By: Jere Gorman on 06-23-2025 RBC (Bld) [#/Vol] 2.65 10*6/uL Low 4.6-6.2 [facility] Serum creatinine measurement (mass/volume)Ordered By: Jere Gorman on 06-23-2025 Creatinine [Mass/Vol] 1.43 mg/dL High 0.70-1.20 [facility] Serum glucose measurement (m ass/volume)Ordered By: Jere Gorman on 06-23-2025 Glucose [Mass/Vol] 160 mg/dL High 70-99 [facility] Serum or plasma calcium gris urement (mass/volume)Ordered By: Jere Gorman on 06-23-2025 Calcium [Mass/Vol] 9.0 mg/dL 7.6-11.0 [facility] Serum or plasma urea nitroge n measurement (mass/volume)Ordered By: Jere Gorman on 06-23-2025 Urea nitrogen [Mass/Vol] 41 mg/dL High 4-19 [facility] Sodium levelOrdered By: Jere Gorman on 06-23-2025 Sodium [Moles/Vol] 138 mmol/L 133-145 [facility] White blood cell (WBC) count Ordered By: Jere Gorman on 06-23-2025 WBC (Bld) [#/Vol] 6.8 10*3/uL 4.4-11.0 [facility] CNOVon 06-21-2025 CNOV Normal [facility] CBC W/Diff, Automatedon 06-09 PATH REV May foll Normal [facility] Comment on above: Performed By: #### L 100.0100, L500.2500 #### [facility] Laboratory [address], [address] Parmjit 06-19-2025 CNPN Telephone ([id number]) -- SRINI LUIS ([id number]) 1935 M Date Time Provider Department 06/19/25 IRAM JOHNSON [id number] During your visit today, we recorded the following information about you: Shilpa Abraham MA 06/19/2025 11:10 AM Signed Patient went to [facility] over the weekend for his swelling. He is being treated for Cellulitis and was given an antibiotic for a week. He did have a doppler and it was negative for a clot. She is asking if he should continue taking the increased dose of Lasix after a week? Iram Johnson, TOOL ROOM SUPERVISOR.TUMOR REGISTRAR 06/19/2025 11:46 AM Signed I think it is okay to take the increased dose of Lasix in the short-term, it will help with healing the cellulitis along with antibiotic. Lakesha Pabon MA 06/19/2025 1:12 PM Signed Pt daughter called and notified per iram I think it is okay to take the increased dose of Lasix in the short-term, it will help with healing the cellulitis along with antibiotic. Pt daughter agreeable Allergies As of Date: 06/19/2025 Noted Allergy Reaction SIMVASTATIN 08/17/2012 14 - Other: See Comments Comments: Elevated CK Date Reviewed: 06/09/2025 Reviewed by: Esha Jackson LPN - Fully Assessed Reason for Visit: Patient Update [1234] Prescriptions as of 06/19/2025 - furosemide (LASIX) 40 mg tablet Take [...] once daily. 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 Normal [facility] Venous Duplex US, Unilateral on 06-19-2025 Venous Duplex US, Unilateral [facility] [address] [place] [address] Venous Duplex US, Unilateral 06/19/25 1006 MR#: [id number] Acct: [id number] Name: SRINI LUIS Rep #: [id number] : 1935 89 From: Ned Dinh MD Attending Dr: Dr. Bryanna Tijerina MD Status: [facility] Ordering Dr: Bryanna Tijerina MD Date: 06/19/25 Location: CVS Sex: M C Admitted: Reason For Study Reason For Study: LLE Swelling Procedure LEFT This is a venous duplex using B-mode, color flow and GSV is normal. spectral Doppler. CFV is compressible, spontaneous, competent, and Exam performed in department. demonstrates pulsatile venous flow. The exam was diagnostic. FV is compressible, spontaneous, competent and A preliminary report was called and/or faxed to [facility] demonstrates pulsatile venous flow. ED. POP V is compressible, spontaneous, competent and demonstrates pulsatile venous flow. T/P Trunk is compressible. PTV is compressible. LT PerV is compressible. Anechoic nonvascularized area noted in Lt Pop Fossa measuring 6.01cm x 1.41cm. VL/Venous Duplex US, Unilateral Interpretation Summary Deep veins of the left lower extremity are patent and compressible segmentally. There is no evidence of left lower extremity deep vein thrombosis. The left great saphenous vein appears patent and compressible segmentally. Anechoic nonvascularized area noted in left popliteal Fossa measuring 6.01cm x 1.41cm. Ordering Physician: Bryanna Tijerina Referring Physician: Ronaldo Pleitez M.D. Performed By: Jason Griffin, T 06/19/25 1121 Date Ned Dinh MD CC: Dr. Bryanna Tijerina MD; Dr. Ronaldo Pleitez MD Date Dictated: 06/19/25 1006 Date Transcribed: 06/19/25 1121 Repack Room Worker: Signed Normal [facility] Venous duplex ultrasound rep ortOrdered By: Ned Dinh on 06-19-2025 US Vein [facility] [address] [place] [address] Venous Duplex US, Unilateral 06/19/25 1006 MR#: [id number] Acct: [id number] Name: SRINI LUIS Rep #:[id number] : 1935 89 From: Ned Nuñez Attending Dr: Dr. Bryanna Tijerina MD S tatus: REG CLI Ordering Dr: Bryanna Tijerina MD Date: 10/03 Location: CVS Sex: M C Admitted: Reason For Study Reason For Study: LLE Swelling Procedure LEFT This is a venous duplex using B-mode, color flow and GSV is normal. spectral Doppler. CFV is compressible, spontaneous, competent, and Exam performed in department. demonstrates pulsatile venous flow. The exam was diagnostic. FV is compressible, spontaneous, competent and A preliminary report was called and/or faxed to [facility] demonstrates pulsatile venous flow. ED. POP V is compressible, spontaneous, competent and demonstrates pulsatile venous flow. T/P Trunk is compressible. PTV is compressible. LT PerV is compressible. Anechoic nonvascularized area noted in Lt Pop Fossa measuring 6.01cm x 1.41cm. VL/Venous Duplex US, Unilateral Interpretation Summary Deep veins of the left lower extremity are patent and compressible segmentally. There is no evidence of left lower extremity deep vein thrombosis. The left great saphenous vein appears patent andcompressible segmentally. Anechoic nonvascularized area noted in left popliteal Fossa measuring 6.01cm x 1.41cm. Ordering Physician: Bryanna Tijerina Referring Physician: Ronaldo Pleitez M.D. Performed By: Jason Griffin RVT 06/19/25 1121 Date _ Ned Dinh MD CC: Dr. Bryanna Tijerina MD; Dr. Ronaldo Pleitez MD ~ Date Dictated: 06/19/25 1006 Date Transcribed: 06/19/25 112 Repack Room Worker: Signed [facility] Work Phone: 12 Lead EKGon 06-18-2025 12 Lead EKG [facility] [address] [place] [address] 12 Lead EKG 06/18/252106 MR#: [id number] Acct: [id number] Name: SRINI LUIS Rep #: [id number] : 1935 89 From: Israel Rowley MD Attending Dr: Status: DEP ER Ordering Dr: Ned Chew DO Date: 06/18/25 Location: ED Sex: M C Admitted: Test Reason : DYSRHYTHMIA Blood Pressure : */* mmHG Vent. Rate : 80 BPM Atrial Rate : * BPM P-R Int : * ms QRS Dur : 158 ms QT Int : 468 ms P-R-T Axes : * 247 42 degrees QTcB Int : 539 ms Atrial fibrillation with occasional ventricular-paced complexes Right bundle branch block Possible Lateral infarct , age undetermined Abnormal ECG Confirmed by Israel Rowley ([id number]), copy editor BEBO JUAN ([id number]) on 06/21/2025 9:35:00 AM Referred By: DIANE Confirmed By: Israel Rowley 06/21/2535 Date Israel Rowley MD CC: Dr. Ned Chew DO; Dr. Bryanna Tijerina MD; Dr. Ronaldo Pleitez MD Signed Normal [facility] Absolute lymphocyte countOrd ered By: Bryanna Tijerina on 06-18-2025 Lymphocytes Auto (Unsp spec) [#/Vol] 0.94 10*3/uL 0.83-4.51 [facility] Absolute neutrophil countOrd ered By: Bryanna Tijerina on 06-18-2025 Neutrophils (Bld) [#/Vol] 4.8 10*3/uL 2.0-7.7 [facility] Anion gap in Serum or Plasma Ordered By: Bryanna Tijerina on 06-18-2025 Anion gap [Moles/Vol] 10 mmol/L 5-15 [facility] Automated lymphocyte count a s percentage of total leukocytesOrdered By: Bryanna Tijerina on 06-18-2025 Lymphocytes/100 WBC Auto (Unsp spec) 13.2 % Low 19-41 [facility] BUN/creatinine ratioOrdered By: Bryanna Tijerina on 06-18-2025 Urea nitrogen/Creatinine [Mass ratio] 21.2 mg/mg High 08-28 [facility] Basic Metabolic Profile (BMP )on 06-18-2025 BUN/CRE 21.2 RATIO High 08-28 [facility] Comment on above: Performed By: #### L 100.0100, L500.2500 #### [facility] Laboratory [facility] [address] [place], [address] Calcium [Mass/Vol] 9.0 mg/dL Normal 7.6-11.0 [facility] Comment on above: Performed By: #### L 100.0100, L500.2500 #### [facility] [address] [place], [address] Chloride [Moles/Vol] 98 mmol/L Normal 98-108 [facility] Comment on above: Performed By: #### L 100.0100, L500.2500 #### [facility] [address] [place], [address] CO2 [Moles/Vol] 30.8 mmol/L Normal 21.0-32.0 [facility] Comment on above: Performed By: #### L 100.0100, L500.2500 #### [facility] [address] [place], [address] Creatinine [Mass/Vol] 1.37 mg/dL High 0.70-1.20 [facility] Comment on above: Performed By: #### L 100.0100, L500.2500 #### [facility] [address] [place], [address] ECRCL 38.13 ml/min Low 50-250 [facility] Comment on above: Performed By: #### L 100.0100, L500.2500 #### [facility] [address], [address] GAP 10 Normal 5-15 [facility] Comment on above: Performed By: #### L 100.0100, L500.2500 #### [facility] [address] [place], [address] GFR/1.73 sq M.predicted among non-blacks MDRD (S/P/Bld) [Vol rate/Area] 49 mL/min/{1.73_m2} Low >60 [facility] Comment on above: Result Comment: mL/m in/1.73m2 CKD-EPI Creatinine Equation (2020) Performed By: #### L 100.0100, L500.2500 #### [facility] [address] [place], [address] Glucose [Mass/Vol] 158 mg/dL High 70-99 [facility] Comment on above: Performed By: #### L 100.0100, L500.2500 #### [facility] [address] [place], [address] Potassium [Moles/Vol] 4.6 mmol/L Normal 3.3-5.1 [facility] Comment on above: Performed By: #### L 100.0100, L500.2500 #### [facility] [address] [place], [address] Sodium [Moles/Vol] 139 mmol/L Normal 133-145 [facility] Comment on above: Performed By: #### L 100.0100, L500.2500 #### [facility] [address] [place], [address] Urea nitrogen [Mass/Vol] 29 mg/dL High 4-19 [facility] Comment on above: Performed By: #### L 100.0100, L500.2500 #### [facility] [address], [address] Basophil percentageOrdered B y: Bryanna Tijerina on 06-18-2025 Basophils/100 WBC (Bld) 0.7 % 0-1 [facility] Blood manual differential co mment interpretation (narrative result)Ordered By: Bryanna Tijerina on 06-18-2025 Manual differential comment Gregg (Bld) [Interp] See comment [facility] Comment on above: ANISOCYTOSIS 3+ Blood polychromasia detectio n by light microscopyOrdered By: Bryanna Tijerina on 06-18-2025 Polychromasia LM Ql (Bld) 1+ [facility] Carbon dioxide, total [Moles /volume] in Central venous bloodOrdered By: Bryanna Tijerina on 06-18-2025 CO2 [Moles/Vol] 30.8 mmol/L 21.0-32.0 [facility] Chloride assayOrdered By: Abhay Tijerina on 06-18-2025 Chloride [Moles/Vol] 98 mmol/L 98-108 [facility] Emergency Department Summary on 06-18-2025 Emergency Department Summary [facility] Medical Records Department [address] [place] [address] Emergency Department Summary 06/18/25 MR#: [id number] Acct: [id number] Name: SRINI LUIS Rep #: [id number] : 1935 89 From: Bryanna Tijerina MD PCP: Dr. Ronaldo Pleitez MD Status:DEP ER Location: ED HPI History of Present Illness HPI Narrative: Patient is an 89-year-old male presents to the emergency department for left leg swelling and redness. Patient has a past medical history of CMML is not on any infusions or treatment currently, sepsis, CAD, pacemaker placement. Patient is on Xarelto and has been compliant with this. Patient states that he normally has issues with swelling in his right leg due to a past graft that was taken from it. States that over the past 2 weeks he has developed swelling in his left lower leg. Over the past week it has become erythematous. He denies fever, chills, chest pain, shortness of breath, fatigue, abdominal pain, nausea, vomiting, diarrhea. States he has been compliant with his Lasix. Denies history of DVT or PE. Denies any recent travel, hospitalizations or surgeries. Chief Complaint: Edema PFSH PFS Medical History Cellulitis CMML (chronic myelomonocytic leukemia) Lumbar stenosis Nocturnal hypoxemia Osteoarthritis Atheroembolism of foot Myasthenia gravis Pacemaker ( 09/2022) Cerebral vascular accident ( 08/2022) Complete heart block Coronary artery disease ( 09/2022) Hypothyroidism HLD (hyperlipidemia) Benign essential HTN Home Medications ???Medication ???Instructions ???Recorded ???Last Taken ???Type aspirin 81 mg tablet,delayed 81 mg PO DAILY 04/09/23 05/14/23 H istory release cholecalciferol (vitamin D3) 25 25 mcg PO DAILY 04/09/23 05/14/23 History mcg (1,000 unit) tablet cyanocobalamin (vitamin B-12) 1,000 mcg PO DAILY 04/09/23 History 1,000 mcg capsule furosemide 20 mg tablet (Lasix) 20 mg PO BID 04/09/23 05/14/23 His tory levothyroxine 112 mcg tablet 112 mcg PO DAILY 04/09/23 05/14/23 History (Synthroid) multivitamin 1 tab PO DAILY 04/09/23 05/14/23 H istory rivaroxaban 20 mg tablet (Xarelto) 20 mg PO QPM 04/09/23 05/13/23 H istory atorvastatin 20 mg tablet 20 mg PO QHS 05/14/23 05/13/23 His tory digoxin 125 mcg (0.125 mg) tablet 0.125 mg PO DAILY 05/14/23 History metoprolol tartrate 25 mg tablet 12.5 mg PO BID 05/14/23 05/14/23 H istory ferrous fumarate 325 mg (106 mg 325 mg PO DAILY 30 days #0 tabs 05/14/23 Rx iron) tablet folic acid 1 mg tablet 1 mg PO BREAKFAST 30 days #30 tabs 05/18/23 Unknown Rx levofloxacin 500 mg tablet 500 mg PO DAILY 6 days #6 tabs 08/31 Unknown Rx polyethylene glycol 3350 17 gram 17 g PO DAILY 30 days #30 ea 05/18 Unknown Rx oral powder packet sennosides 8.6 mg-docusate sodium 2 tab PO BID PRN constipation 30 05/18/23 Unknown Rx 50 mg tablet (Stool days #120 tabs Softener-Stimulant Laxative) polyethylene glycol 3350 17 17 g PO DAILY PRN constipation 10/31 Unknown Rx gram/dose oral powder (Miralax) #238 grams prochlorperazine maleate 10 mg 10 mg PO BID PRN nausea and Unknown History tablet (Compazine) vomiting furosemide 40 mg tablet 40 mg PO DAILY 06/18/25 Unknown Hi story levothyroxine 100 mcg tablet 100 mcg PO DAILY 06/18/25 Unknown History (Synthroid) cephalexin 500 mg capsule 500 mg PO Q8H 5 days #15 caps 06/09 12/03 Unknown Rx Allergy/AdvReac Type Severity Reaction Status Date / Time No Known Allergies Allergy Verified 05/22/23 09:41 Family History Mother Heart disease Father Heart disease Surgical History History of ankle surgery ( 12/2020) History of arthroplasty of right shoulder ( 2008) 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 No acute distress HEENT: Head is normocephalic and atraumatic, sinuses nontender, pupils equal round and reactive. Nares are patent. Oropharynx and throat exams normal. Neck: Supple without lymphadenopathy nontender Cardiovascular: Regular rate and rhythm, no murmurs. No rubs or gallops. Normal S1 and S2 Respiratory: Clear to auscultation bilaterally. No wheezes, rales, rhonchi Abdominal: Soft and nontender. N (more content not included)... Normal [facility] Eosinophil percentageOrdered By: Bryanna Tijerina on 06-18-2025 Eosinophils/100 WBC (Bld) 0.7 % 0-5 [facility] Erythrocyte basophilic stipp ling detectionOrdered By: Bryanna Tijerina on 06-18-2025 Basophilic stippling LM Ql (Bld) RARE [facility] Erythrocyte distribution wid th ratioOrdered By: Bryanna Tijerina on 06-18-2025 Erythrocyte distribution width (RBC) [Ratio] 26.8 % High 11.6-14.6 [facility] Erythrocyte distribution wid th standard deviationOrdered By: Bryanna Tijerina on 06-18-2025 Erythrocyte distribution width (RBC) [Ratio] 111.8 fl High 35.1-43.9 [facility] Erythrocyte morphology asses smentOrdered By: Bryanna Tijerina on 06-18-2025 RBC morphology finding Nom (Bld) 1+ [facility] Glomerular filtration rate ( GFR) estimation/1.73 sq m using serum, plasma, or whole bOrdered By: Bryanna Tijerina on 06-18-2025 GFR/1.73 sq M.predicted among non-blacks MDRD (S/P/Bld) [Vol rate/Area] 49 mL/min/{1.73_m2} Low >60 [facility] Comment on above: mL/min/1.73m2 CKD-EP I Creatinine Equation (2020) Hematocrit Auto (Bld) [Volum e fraction]Ordered By: Bryanna Tijerina on 06-18-2025 Hematocrit (Bld) [Volume fraction] 29.8 % Low 40-54 [facility] Hemoglobin measurementOrdere d By: Bryanna Tijerina on 06-18-2025 Hemoglobin (Bld) [Mass/Vol] 9.6 g/dL Low 13.0-16.5 [facility] Hypochromatic red blood cell detectionOrdered By: Bryanna Tijerina on 06-18-2025 Hypochromia Ql (Bld) RARE [facility] Immature granulocytes/100 WB C Auto (Bld)Ordered By: Bryanna Tijerina on 06-18-2025 Immature granulocytes/100 WBC (Bld) 0.300 % 0.0-0.9 [facility] Comment on above: IG% - Immature Granu locytes (promyelocytes, myelocytes and metamyelocytes) > 1% indicates that a LEFT SHIFT is Present. Laboratory - Hematology and Cell countsOrdered By: Bryanna Tijerina on 06-18-2025 Anisocytosis Ql (Bld) 3+ [facility] MCV (mean corpuscular volume ) determinationOrdered By: Bryanna Tijerina on 06-18-2025 MCV (RBC) [Entitic vol] 112.5 fL High 80-94 [facility] Mean corpuscular hemoglobin (MCH) determinationOrdered By: Bryanna Tijerina on 06-18-2025 MCH (RBC) [Entitic mass] 36.2 pg High 27.0-32.0 [facility] Mean corpuscular hemoglobin concentration (MCHC) determinationOrdered By: Bryanna Tijerina on 06-18-2025 MCHC (RBC) [Mass/Vol] 32.2 g/dL 32-36 [facility] Mean platelet volume determi nationOrdered By: Bryanna Tijerina on 06-18-2025 Platelet mean volume (Bld) [Entitic vol] 12.5 fL High 6.2-12.0 [facility] Monocyte percentageOrdered B y: Bryanna Tijerina on 06-18-2025 Monocytes/100 WBC (Bld) 17.3 % High 0-10 [facility] Neutrophil percentageOrdered By: Bryanna Tijerina on 06-18-2025 Neutrophils/100 WBC (Bld) 67.8 % 47-70 [facility] Nucleated red blood cell per centageOrdered By: Bryanna Tijerina on 06-18-2025 Nucleated RBC/100 WBC (Bld) [Ratio] 1.4 % 0-5 [facility] Ovalocyte detectionOrdered B y: Bryanna Tijerina on 06-18-2025 Ovalocytes LM Ql (Bld) RARE [facility] Platelet countOrdered By: Abhay Tijerina on 06-18-2025 Platelets (Bld) [#/Vol] 225 10*3/uL 150-450 [facility] Platelet morphologyOrdered B y: Bryanna Tijerina on 06-18-2025 Platelet morphology finding Nom (Bld) GIANT [facility] Platelet morphology finding Nom (Bld) LARGE [facility] Comment on above: Previous reported re sult: GIANT Edited by: JOSÉ MANUEL on 06/19/25:0128 AMENDED REPORT 06/19/25 0128 PLT MORPH previously reported as: GIANT Potassium measurement (mass/ volume)Ordered By: Bryanna Tijerina on 06-18-2025 Potassium (Unsp spec) [Mass/Vol] 4.6 mmol/L 3.3-5.1 [facility] RBC Auto (Bld) [#/Vol]Ordere d By: Bryanna Tijerina on 06-18-2025 RBC (Bld) [#/Vol] 2.65 10*6/uL Low 4.6-6.2 [facility] Review by pathologistOrdered By: Bryanna Tijerina on 06-18-2025 Pathologist review Gregg (Unsp spec) [Interp] May foll [facility] Serum creatinine measurement (mass/volume)Ordered By: Bryanna Tijerina on 06-18-2025 Creatinine [Mass/Vol] 1.37 mg/dL High 0.70-1.20 [facility] Serum glucose measurement (m ass/volume)Ordered By: Bryannamichelle Tijerina on 06-18-2025 Glucose [Mass/Vol] 158 mg/dL High 70-99 [facility] Serum or plasma calcium gris urement (mass/volume)Ordered By: Bryannamichelle Tijerina on 06-18-2025 Calcium [Mass/Vol] 9.0 mg/dL 7.6-11.0 [facility] Serum or plasma urea nitroge n measurement (mass/volume)Ordered By: Bryannamichelle Tijerina on 06-18-2025 Urea nitrogen [Mass/Vol] 29 mg/dL High 4-19 [facility] Sodium levelOrdered By: Ned manuel Lilliana on 06-18-2025 Sodium [Moles/Vol] 139 mmol/L 133-145 [facility] White blood cell (WBC) count Ordered By: Bryanna Lilliana on 06-18-2025 WBC (Bld) [#/Vol] 7.1 10*3/uL 4.4-11.0 [facility] CNPNon 06-16-2025 CNPN Telephone ([id number]) -- SRINI LUIS ([id number]) 1935 Date Time Provider Department 06/16/25 IRAM JOHNSON [id number] During your visit today, we recorded the [...] what he needs to do Iram Johnson, TOOL ROOM SUPERVISOR.TUMOR REGISTRAR 06/16/2025 2:08 PM Signed His Lasix order says that he can take an extra 20 mg of Lasix daily if his swelling increases. Has he been doing that? Lakesha Pabon MA 06/16/2025 2:54 PM Signed Pt called in stating he has only been taking only 20mg twice daily. He has not been taking any extra Iram Johnson APRN.TUMOR REGISTRAR 06/16/2025 3:30 PM Signed Tell the patient [...] atrial append (more content not included)... Normal [facility] CBC W Auto Differential pane l (Bld)on 06-09-2025 Basophils (Bld) [#/Vol] 0.07 10*3/uL Normal <0.11 [facility] Comment on above: Order Comment: Speci men Type: BLOOD SPECIMENOrdering Facility: [facility] Address: [address] [place] [address] Performed By: #### 5 7021-8 ####[facility] [id number] [place] [address] [place] Basophils/100 WBC (Bld) 1.0 % Normal [facility] Comment on above: Order Comment: Speci men Type: BLOOD SPECIMENOrdering Facility: [facility] Address: [address] [place] [address] Performed By: #### 5 7021-8 ####[facility] HOSPITALNCLIA [id number] [place] [address] [place] Differential cell count method Nom (Bld) Auto Normal [facility] Comment on above: Order Comment: Speci men Type: BLOOD SPECIMENOrdering Facility: [facility] Address: [address] [place] [address] Performed By: #### 5 7021-8 ####[facility] HOSPITALNCLI [id number] [place] [address] [place] Eosinophils (Bld) [#/Vol] 0.07 10*3/uL Normal <0.46 [facility] Comment on above: Order Comment: Speci men Type: BLOOD SPECIMENOrdering Facility: [facility] Address: [address] [place] [address] Performed By: #### 5 7021-8 ####[facility] HOSPITALNCLIA [id number] [place] [address] [place] Eosinophils/100 WBC (Bld) 1.0 % Normal [facility] Comment on above: Order Comment: Speci men Type: BLOOD SPECIMENOrdering Facility: [facility] Address: [address] [place] [address] Performed By: #### 5 7021-8 ####[facility] H[facility]PITALNCLIA [id number] [place] [address] [place] Erythrocyte distribution width (RBC) [Ratio] 26.0 % High 11.5-15.0 [facility] Comment on above: Order Comment: Speci men Type: BLOOD SPECIMENOrdering Facility: [facility] Address: [address] [place] [address] Performed By: #### 5 7021-8 ####[facility] HOSPITALNCLI [id number] [place] [address] [place] Hematocrit (Bld) [Volume fraction] 26.9 % Low 39.0-51.0 [facility] Comment on above: Order Comment: Speci men Type: BLOOD SPECIMENOrdering Facility: [facility] Address: [address] [place] [address] Performed By: #### 5 7021-8 ####[facility] HOSPITALMALENA [id number] [place] [address] [place] Hemoglobin (Bld) [Mass/Vol] 9.0 g/dL Low 13.0-17.0 [facility] Comment on above: Order Comment: Speci men Type: BLOOD SPECIMENOrdering Facility: [facility] Address: [address] [place] [address] Performed By: #### 5 7021-8 ####[facility] HOSPITALROBERTManuel [id number] [place] [address] [place] Immature granulocytes (Bld) [#/Vol] 0.05 10*3/uL Normal <0.10 [facility] Comment on above: Order Comment: Speci men Type: BLOOD SPECIMENOrdering Facility: [facility] Address: [address] [place] [address] Performed By: #### 5 7021-8 ####[facility] HOSPITALMALENA [id number] [place] [address] [place] Immature granulocytes/100 WBC (Bld) 0.7 % Normal [facility] Comment on above: Order Comment: Speci men Type: BLOOD SPECIMENOrdering Facility: [facility] Address: [address] [place] [address] Performed By: #### 5 7021-8 ####[facility] HOSPITALNCLI [id number] [place] [address] [place] Lymphocytes (Bld) [#/Vol] 1.00 10*3/uL Normal 1.00-4.00 [facility] Comment on above: Order Comment: Speci men Type: BLOOD SPECIMENOrdering Facility: [facility] Address: [address] [place] [address] Performed By: #### 5 7021-8 ####[facility]PITALNCOGD[facility] [id number] [place] [address] [place] Lymphocytes/100 WBC (Bld) 13.6 % Normal [facility] Comment on above: Order Comment: Speci men Type: BLOOD SPECIMENOrdering Facility: [facility] Address: [address] [place] [address] Performed By: #### 5 7021-8 ####[facility]PITALNCOGD[facility] [id number] [place] [address] [place] MCH (RBC) [Entitic mass] 36.6 pg High 26.0-34.0 [facility] Comment on above: Order Comment: Speci men Type: BLOOD SPECIMENOrdering Facility: [facility] Address: [address] [place] [address] Performed By: #### 5 7021-8 ####[facility] [id number] [place] [address] [place] MCHC (RBC) [Mass/Vol] 33.5 g/dL Normal 30.5-36.0 [facility] Comment on above: Order Comment: Speci men Type: BLOOD SPECIMENOrdering Facility: [facility] Address: [address] [place] [address] Performed By: #### 5 7021-8 ####[facility]PITALNCOGD[facility] [id number] [place] [address] [place] MCV (RBC) [Entitic vol] 109.3 fL High 80.0-100.0 [facility] Comment on above: Order Comment: Speci men Type: BLOOD SPECIMENOrdering Facility: [facility] Address: [address] [place] [address] Performed By: #### 5 7021-8 ####[facility] MILLTOWNCLIA [id number] [place] [address] [place] Monocytes (Bld) [#/Vol] 0.94 10*3/uL High <0.87 [facility] Comment on above: Order Comment: Speci men Type: BLOOD SPECIMENOrdering Facility: [facility] Address: [address] [place] [address] Performed By: #### 5 7021-8 ####[facility] MILLWNCLIA [id number] [place] [address] [place] Monocytes/100 WBC (Bld) 12.8 % Normal [facility] Comment on above: Order Comment: Speci men Type: BLOOD SPECIMENOrdering Facility: [facility] Address: [address] [place] [address] Performed By: #### 5 7021-8 ####[facility] CENTERLIA [id number] [place] [address] [place] Neutrophils (Bld) [#/Vol] 5.23 10*3/uL Normal 1.45-7.50 [facility] Comment on above: Order Comment: Speci men Type: BLOOD SPECIMENOrdering Facility: [facility] Address: [address] [place] [address] Performed By: #### 5 7021-8 ####[facility] MILLTOWNCLIA [id number] [place] [address] [place] Neutrophils/100 WBC (Bld) 70.9 % Normal [facility] Comment on above: Order Comment: Speci men Type: BLOOD SPECIMENOrdering Facility: [facility] Address: [address] [place] [address] Performed By: #### 5 7021-8 ####[facility] MILLWNCLIA [id number] [place] [address] [place] Nucleated RBC (Bld) [#/Vol] 0.09 10*3/uL High <0.01 [facility] Comment on above: Order Comment: Speci men Type: BLOOD SPECIMENOrdering Facility: [facility] Address: [address] [place] [address] Performed By: #### 5 7021-8 ####[facility] HOSPITALROBERTOGDEN [facility] [id number] [place] [address] [place] Nucleated RBC/100 WBC (Bld) [Ratio] 1.2 /100 WBC Normal [facility] Comment on above: Order Comment: Speci men Type: BLOOD SPECIMENOrdering Facility: [facility] Address: [address] [place] [address] Performed By: #### 5 7021-8 ####[facility]PITALNCOGD[facility] [id number] [place] [address] [place] Platelet mean volume (Bld) [Entitic vol] 11.9 fL Normal 9.0-12.7 [facility] Comment on above: Order Comment: Speci men Type: BLOOD SPECIMENOrdering Facility: [facility] Address: [address] [place] [address] Performed By: #### 5 7021-8 ####[facility] HOSPITALROBERTLI [id number] [place] [address] [place] Platelets (Bld) [#/Vol] 291 10*3/uL Normal 150-400 [facility] Comment on above: Order Comment: Speci men Type: BLOOD SPECIMENOrdering Facility: [facility] Address: [address] [place] [address] Performed By: #### 5 7021-8 ####[facility] HOSPITALNCLIA [id number] [place] [address] [place] RBC (Bld) [#/Vol] 2.46 10*6/uL Low 4.20-6.00 [facility] Comment on above: Order Comment: Speci men Type: BLOOD SPECIMENOrdering Facility: [facility] Address: [address] [place] [address] Performed By: #### 5 7021-8 ####[facility] HOSPITALWROBERTLIA [id number] [place] [address] [place] WBC (Bld) [#/Vol] 7.36 10*3/uL Normal 3.70-11.00 [facility] Comment on above: Order Comment: Speci men Type: BLOOD SPECIMENOrdering Facility: [facility] Address: [address] [place] [address] Performed By: #### 5 7021-8 ####[facility] [id number] [place] [address] [place] CNOVon 06-05-2025 CNOV Normal [facility] CNOVon 05-30-2025 CNOV Normal [facility] CBC W Auto Differential pane l (Bld)on 05-26-2025 Basophils (Bld) [#/Vol] 0.06 10*3/uL Normal <0.11 [facility] Comment on above: Order Comment: Speci men Type: BLOOD SPECIMENOrdering Facility: [facility] Address: [address] [place] [address] Performed By: #### 5 7021-8 ####[facility] CENTERLIA [id number] [place] [address] [place] Basophils/100 WBC (Bld) 0.9 % Normal [facility] Comment on above: Order Comment: Speci men Type: BLOOD SPECIMENOrdering Facility: [facility] Address: [address] [place] [address] Performed By: #### 5 7021-8 ####[facility] HOSPITALNCA [id number] [place] [address] [place] Differential cell count method Nom (Bld) Auto Normal [facility] Comment on above: Order Comment: Speci men Type: BLOOD SPECIMENOrdering Facility: [facility] Address: [address] [place] [address] Performed By: #### 5 7021-8 ####[facility]PITALNCOGD[facility] [id number] [place] [address] [place] Eosinophils (Bld) [#/Vol] 0.06 10*3/uL Normal <0.46 [facility] Comment on above: Order Comment: Speci men Type: BLOOD SPECIMENOrdering Facility: [facility] Address: [address] [place] [address] Performed By: #### 5 7021-8 ####[facility] [id number] [place] [address] [place] Eosinophils/100 WBC (Bld) 0.9 % Normal [facility] Comment on above: Order Comment: Speci men Type: BLOOD SPECIMENOrdering Facility: [facility] Address: [address] [place] [address] Performed By: #### 5 7021-8 ####[facility] [id number] [place] [address] [place] Erythrocyte distribution width (RBC) [Ratio] 24.2 % High 11.5-15.0 [facility] Comment on above: Order Comment: Speci men Type: BLOOD SPECIMENOrdering Facility: [facility] Address: [address] [place], [place] [id number] Performed By: #### 5 7021-8 ####[facility] [id number] [place] [address] [place] Hematocrit (Bld) [Volume fraction] 26.9 % Low 39.0-51.0 [facility] Comment on above: Order Comment: Speci men Type: BLOOD SPECIMENOrdering Facility: [facility] Address: [address] [place] [address] Performed By: #### 5 7021-8 ####[facility] JONHCHARLOTTEMALENA [id number] [place] [address] [place] Hemoglobin (Bld) [Mass/Vol] 8.9 g/dL Low 13.0-17.0 [facility] Comment on above: Order Comment: Speci men Type: BLOOD SPECIMENOrdering Facility: [facility] Address: [address] [place] [address] Performed By: #### 5 7021-8 ####[facility] [id number] [place] [address] [place] Immature granulocytes (Bld) [#/Vol] 0.03 10*3/uL Normal <0.10 [facility] Comment on above: Order Comment: Speci men Type: BLOOD SPECIMENOrdering Facility: [facility] Address: [address] [place] [address] Performed By: #### 5 7021-8 ####[facility] [id number] [place] [address] [place] Immature granulocytes/100 WBC (Bld) 0.5 % Normal [facility] Comment on above: Order Comment: Speci men Type: BLOOD SPECIMENOrdering Facility: [facility] Address: [address] [place] [address] Performed By: #### 5 7021-8 ####[facility]ENTERLIA [id number] [place] [address] [place] Lymphocytes (Bld) [#/Vol] 0.96 10*3/uL Low 1.00-4.00 [facility] Comment on above: Order Comment: Speci men Type: BLOOD SPECIMENOrdering Facility: [facility] Address: [address] [place] [address] Performed By: #### 5 7021-8 ####[facility] CENTERRADHA [id number] [place] [address] [place] Lymphocytes/100 WBC (Bld) 15.0 % Normal [facility] Comment on above: Order Comment: Speci men Type: BLOOD SPECIMENOrdering Facility: [facility] Address: [address] [place] [address] Performed By: #### 5 7021-8 ####[facility] [id number] [place] [address] [place] MCH (RBC) [Entitic mass] 35.9 pg High 26.0-34.0 [facility] Comment on above: Order Comment: Speci men Type: BLOOD SPECIMENOrdering Facility: [facility] Address: [address] [place] [address] Performed By: #### 5 7021-8 ####[facility] [id number] [place] [address] [place] MCHC (RBC) [Mass/Vol] 33.1 g/dL Normal 30.5-36.0 [facility] Comment on above: Order Comment: Speci men Type: BLOOD SPECIMENOrdering Facility: [facility] Address: [address] [place] [address] Performed By: #### 5 7021-8 ####[facility] [id number] [place] [address] [place] MCV (RBC) [Entitic vol] 108.5 fL High 80.0-100.0 [facility] Comment on above: Order Comment: Speci men Type: BLOOD SPECIMENOrdering Facility: [facility] Address: [address] [place] [address] Performed By: #### 5 7021-8 ####[facility]PITALNCOGD[facility] [id number] [place] [address] [place] Monocytes (Bld) [#/Vol] 0.98 10*3/uL High <0.87 [facility] Comment on above: Order Comment: Speci men Type: BLOOD SPECIMENOrdering Facility: [facility] Address: [address] [place] [address] Performed By: #### 5 7021-8 ####[facility] [id number] [place] [address] [place] Monocytes/100 WBC (Bld) 15.3 % Normal [facility] Comment on above: Order Comment: Speci men Type: BLOOD SPECIMENOrdering Facility: [facility] Address: [address] [place] [address] Performed By: #### 5 7021-8 ####[facility] [id number] [place] [address] [place] Neutrophils (Bld) [#/Vol] 4.33 10*3/uL Normal 1.45-7.50 [facility] Comment on above: Order Comment: Speci men Type: BLOOD SPECIMENOrdering Facility: [facility] Address: [address] [place] [address] Performed By: #### 5 7021-8 ####[facility] [id number] [place] [address] [place] Neutrophils/100 WBC (Bld) 67.4 % Normal [facility] Comment on above: Order Comment: Speci men Type: BLOOD SPECIMENOrdering Facility: [facility] Address: [address] [place] [address] Performed By: #### 5 7021-8 ####[facility] [id number] [place] [address] [place] Nucleated RBC (Bld) [#/Vol] 0.06 10*3/uL High <0.01 [facility] Comment on above: Order Comment: Speci men Type: BLOOD SPECIMENOrdering Facility: [facility] Address: [address] [place] [address] Performed By: #### 5 7021-8 ####[facility] HASEEB [id number] [place] [address] [place] Nucleated RBC/100 WBC (Bld) [Ratio] 0.9 /100 WBC Normal [facility] Comment on above: Order Comment: Speci men Type: BLOOD SPECIMENOrdering Facility: [facility] Address: [address] [place] [address] Performed By: #### 5 7021-8 ####[facility] JONHCHARLOTTENCRADHA [id number] [place] [address] [place] Platelet mean volume (Bld) [Entitic vol] 11.3 fL Normal 9.0-12.7 [facility] Comment on above: Order Comment: Speci men Type: BLOOD SPECIMENOrdering Facility: [facility] Address: [address] [place] [address] Performed By: #### 5 7021-8 ####[facility] HOSPITALKOSTAA [id number] [place] [address] [place] Platelets (Bld) [#/Vol] 311 10*3/uL Normal 150-400 [facility] Comment on above: Order Comment: Speci men Type: BLOOD SPECIMENOrdering Facility: [facility] Address: [address] [place] [address] Performed By: #### 5 7021-8 ####[facility] HOSPITALNCLIA [id number] [place] [address] [place] RBC (Bld) [#/Vol] 2.48 10*6/uL Low 4.20-6.00 [facility] Comment on above: Order Comment: Speci men Type: BLOOD SPECIMENOrdering Facility: [facility] Address: [address] [place] [address] Performed By: #### 5 7021-8 ####[facility] HOSPITALNCLIA [id number] [place] [address] [place] WBC (Bld) [#/Vol] 6.42 10*3/uL Normal 3.70-11.00 [facility] Comment on above: Order Comment: Speci men Type: BLOOD SPECIMENOrdering Facility: [facility] Address: [address] [place] [address] Performed By: #### 5 7021-8 ####[facility] [id number] [place] [address] [place] CNPNon 05-26-2025 CNPN Normal [facility] CNOVon 05-25-2025 CNOV Normal [facility] CNPNon 05-22-2025 CNPN Normal [facility] CBC W Auto Differential pane l (Bld)on 05-11-2025 Basophils (Bld) [#/Vol] 0.06 10*3/uL Normal <0.11 [facility] Comment on above: Order Comment: Speci men Type: BLOOD SPECIMENOrdering Facility: [facility] Address: [address] [place] [address] Performed By: #### 5 7021-8 ####[facility] [id number] [place] [address] [place] Basophils/100 WBC (Bld) 1.0 % Normal [facility] Comment on above: Order Comment: Speci men Type: BLOOD SPECIMENOrdering Facility: [facility] Address: [address] [place] [address] Performed By: #### 5 7021-8 ####[facility] [id number] [place] [address] [place] Differential cell count method Nom (Bld) Auto Normal [facility] Comment on above: Order Comment: Speci men Type: BLOOD SPECIMENOrdering Facility: [facility] Address: [address] [place] [address] Performed By: #### 5 7021-8 ####[facility] MILLWNCLIA [id number] [place] [address] [place] Eosinophils (Bld) [#/Vol] 0.07 10*3/uL Normal <0.46 [facility] Comment on above: Order Comment: Speci men Type: BLOOD SPECIMENOrdering Facility: [facility] Address: [address] [place] [address] Performed By: #### 5 7021-8 ####[facility] HOSPITALWLALIA [id number] [place] [address] [place] Eosinophils/100 WBC (Bld) 1.2 % Normal [facility] Comment on above: Order Comment: Speci men Type: BLOOD SPECIMENOrdering Facility: [facility] Address: [address] [place] [address] Performed By: #### 5 7021-8 ####[facility]ENTERLIA [id number] [place] [address] [place] Erythrocyte distribution width (RBC) [Ratio] 23.8 % High 11.5-15.0 [facility] Comment on above: Order Comment: Speci men Type: BLOOD SPECIMENOrdering Facility: [facility] Address: [address] [place] [address] Performed By: #### 5 7021-8 ####[facility] HOSPITALWNCLIA [id number] [place] [address] [place] Hematocrit (Bld) [Volume fraction] 27.1 % Low 39.0-51.0 [facility] Comment on above: Order Comment: Speci men Type: BLOOD SPECIMENOrdering Facility: [facility] Address: [address] [place] [address] Performed By: #### 5 7021-8 ####[facility]ENTERLIA [id number] [place] [address] [place] Hemoglobin (Bld) [Mass/Vol] 9.2 g/dL Low 13.0-17.0 [facility] Comment on above: Order Comment: Speci men Type: BLOOD SPECIMENOrdering Facility: [facility] Address: [address] [place] [address] Performed By: #### 5 7021-8 ####[facility] [id number] [place] [address] [place] Immature granulocytes (Bld) [#/Vol] 0.04 10*3/uL Normal <0.10 [facility] Comment on above: Order Comment: Speci men Type: BLOOD SPECIMENOrdering Facility: [facility] Address: [address] [place] [address] Performed By: #### 5 7021-8 ####[facility] [id number] [place] [address] [place] Immature granulocytes/100 WBC (Bld) 0.7 % Normal [facility] Comment on above: Order Comment: Speci men Type: BLOOD SPECIMENOrdering Facility: [facility] Address: [address] [place] [address] Performed By: #### 5 7021-8 ####[facility] [id number] [place] [address] [place] Lymphocytes (Bld) [#/Vol] 1.06 10*3/uL Normal 1.00-4.00 [facility] Comment on above: Order Comment: Speci men Type: BLOOD SPECIMENOrdering Facility: [facility] Address: [address] [place] [address] Performed By: #### 5 7021-8 ####[facility] HOSPITALNCLI [id number] [place] [address] [place] Lymphocytes/100 WBC (Bld) 17.5 % Normal [facility] Comment on above: Order Comment: Speci men Type: BLOOD SPECIMENOrdering Facility: [facility] Address: [address] [place] [address] Performed By: #### 5 7021-8 ####[facility] HOSPITALNCLIA [id number] [place] [address] [place] MCH (RBC) [Entitic mass] 36.7 pg High 26.0-34.0 [facility] Comment on above: Order Comment: Speci men Type: BLOOD SPECIMENOrdering Facility: [facility] Address: [address] [place] [address] Performed By: #### 5 7021-8 ####[facility] HOSPITALNCOGDEN [facility] [id number] [place] [address] [place] MCHC (RBC) [Mass/Vol] 33.9 g/dL Normal 30.5-36.0 [facility] Comment on above: Order Comment: Speci men Type: BLOOD SPECIMENOrdering Facility: [facility] Address: [address] [place] [address] Performed By: #### 5 7021-8 ####[facility] HOSPITALNCLIA [id number] [address] [place] MCV (RBC) [Entitic vol] 108.0 fL High 80.0-100.0 [facility] Comment on above: Order Comment: Speci men Type: BLOOD SPECIMENOrdering Facility: [facility] Address: [address] [place], [place] [id number] Performed By: #### 5 7021-8 ####[facility] HOSPITALNCA [id number] [place] [address] [place] Monocytes (Bld) [#/Vol] 0.77 10*3/uL Normal <0.87 [facility] Comment on above: Order Comment: Speci men Type: BLOOD SPECIMENOrdering Facility: [facility] Address: [address] [place] [address] Performed By: #### 5 7021-8 ####[facility] HOSPITALNCLIA [id number] [place] [address] [place] Monocytes/100 WBC (Bld) 12.7 % Normal [facility] Comment on above: Order Comment: Speci men Type: BLOOD SPECIMENOrdering Facility: [facility] Address: [address] [place] [address] Performed By: #### 5 7021-8 ####[facility] HOSPITALNCLIA [id number] [place] [address] [place] Neutrophils (Bld) [#/Vol] 4.06 10*3/uL Normal 1.45-7.50 [facility] Comment on above: Order Comment: Speci men Type: BLOOD SPECIMENOrdering Facility: [facility] Address: [address] [place] [address] Performed By: #### 5 7021-8 ####[facility]ENTERLIA [id number] [place] [address] [place] Neutrophils/100 WBC (Bld) 66.9 % Normal [facility] Comment on above: Order Comment: Speci men Type: BLOOD SPECIMENOrdering Facility: [facility] Address: [address] [place] [address] Performed By: #### 5 7021-8 ####[facility] CENTERLIA [id number] [place] [address] [place] Nucleated RBC (Bld) [#/Vol] 0.06 10*3/uL High <0.01 [facility] Comment on above: Order Comment: Speci men Type: BLOOD SPECIMENOrdering Facility: [facility] Address: [address] [place] [address] Performed By: #### 5 7021-8 ####[facility]ENTERLIA [id number] [place] [address] [place] Nucleated RBC/100 WBC (Bld) [Ratio] 1.0 /100 WBC Normal [facility] Comment on above: Order Comment: Speci men Type: BLOOD SPECIMENOrdering Facility: [facility] Address: [address] [place] [address] Performed By: #### 5 7021-8 ####[facility] HOSPITALROBERTRADHA [id number] [place] [address] [place] Platelet mean volume (Bld) [Entitic vol] 12.3 fL Normal 9.0-12.7 [facility] Comment on above: Order Comment: Speci men Type: BLOOD SPECIMENOrdering Facility: [facility] Address: [address] [place] [address] Performed By: #### 5 7021-8 ####[facility] HOSPITALROBERTManuel [id number] [place] [address] [place] Platelets (Bld) [#/Vol] 231 10*3/uL Normal 150-400 [facility] Comment on above: Order Comment: Speci men Type: BLOOD SPECIMENOrdering Facility: [facility] Address: [address] [place] [address] Performed By: #### 5 7021-8 ####[facility] HOSPITALKOSTAManuel [id number] [place] [address] [place] RBC (Bld) [#/Vol] 2.51 10*6/uL Low 4.20-6.00 [facility] Comment on above: Order Comment: Speci men Type: BLOOD SPECIMENOrdering Facility: [facility] Address: [address] [place] [address] Performed By: #### 5 7021-8 ####[facility] HOSPITALNCLIA [id number] [place] [address] [place] WBC (Bld) [#/Vol] 6.06 10*3/uL Normal 3.70-11.00 [facility] Comment on above: Order Comment: Speci men Type: BLOOD SPECIMENOrdering Facility: [facility] Address: [address] [place] [address] Performed By: #### 5 7021-8 ####[facility] HOSPITALROBERTLIA [id number] [place] [address] [place] CNPNon 05-05-2025 CNPN Normal [facility] CBC W Auto Differential pane l (Bld)on 04-28-2025 Basophils (Bld) [#/Vol] 0.06 10*3/uL Normal <0.11 [facility] Comment on above: Order Comment: Speci men Type: BLOOD SPECIMENOrdering Facility: [facility] Address: [address] [place] [address] Performed By: #### 5 7021-8 ####[facility] HOSPITALROBERTLIA [id number] [place] [address] [place] Basophils/100 WBC (Bld) 1.0 % Normal [facility] Comment on above: Order Comment: Speci men Type: BLOOD SPECIMENOrdering Facility: [facility] Address: [address] [place] [address] Performed By: #### 5 7021-8 ####[facility] HOSPITALKOSTAA [id number] [place] [address] [place] Differential cell count method Nom (Bld) Auto Normal [facility] Comment on above: Order Comment: Speci men Type: BLOOD SPECIMENOrdering Facility: [facility] Address: [address] [place] [address] Performed By: #### 5 7021-8 ####[facility] HOSPITALNCLIA [id number] [place] [address] [place] Eosinophils (Bld) [#/Vol] 0.11 10*3/uL Normal <0.46 [facility] Comment on above: Order Comment: Speci men Type: BLOOD SPECIMENOrdering Facility: [facility] Address: [address] [place] [address] Performed By: #### 5 7021-8 ####[facility] JONHWilliamsNCCONSTANCE [id number] [place] [address] [place] Eosinophils/100 WBC (Bld) 1.7 % Normal [facility] Comment on above: Order Comment: Speci men Type: BLOOD SPECIMENOrdering Facility: [facility] Address: [address] [place] [address] Performed By: #### 5 7021-8 ####[facility] HOSPITALNCLI [id number] [place] [address] [place] Erythrocyte distribution width (RBC) [Ratio] 22.5 % High 11.5-15.0 [facility] Comment on above: Order Comment: Speci men Type: BLOOD SPECIMENOrdering Facility: [facility] Address: [address] [place] [address] Performed By: #### 5 7021-8 ####[facility] [id number] [place] [address] [place] Hematocrit (Bld) [Volume fraction] 28.9 % Low 39.0-51.0 [facility] Comment on above: Order Comment: Speci men Type: BLOOD SPECIMENOrdering Facility: [facility] Address: [address] [place] [address] Performed By: #### 5 7021-8 ####[facility] HOSPITALNCLIA [id number] [place] [address] [place] Hemoglobin (Bld) [Mass/Vol] 9.7 g/dL Low 13.0-17.0 [facility] Comment on above: Order Comment: Speci men Type: BLOOD SPECIMENOrdering Facility: [facility] Address: [address] [place] [address] Performed By: #### 5 7021-8 ####[facility] MILLTOWNCLIA [id number] [place] [address] [place] Immature granulocytes (Bld) [#/Vol] 10*3/uL Normal <0.10 [facility] Comment on above: Order Comment: Speci men Type: BLOOD SPECIMENOrdering Facility: [facility] Address: [address] [place] [address] Performed By: #### 5 7021-8 ####[facility] HOSPITALWNCLIA [id number] [place] [address] [place] Immature granulocytes/100 WBC (Bld) 0.3 % Normal [facility] Comment on above: Order Comment: Speci men Type: BLOOD SPECIMENOrdering Facility: [facility] Address: [address] [place] [address] Performed By: #### 5 7021-8 ####[facility] CENTERLIA [id number] [place] [address] [place] Lymphocytes (Bld) [#/Vol] 1.11 10*3/uL Normal 1.00-4.00 [facility] Comment on above: Order Comment: Speci men Type: BLOOD SPECIMENOrdering Facility: [facility] Address: [address] [place] [address] Performed By: #### 5 7021-8 ####[facility] MILLWNCLIA [id number] [place] [address] [place] Lymphocytes/100 WBC (Bld) 17.6 % Normal [facility] Comment on above: Order Comment: Speci men Type: BLOOD SPECIMENOrdering Facility: [facility] Address: [address] [place] [address] Performed By: #### 5 7021-8 ####[facility] HOSPITALNCLIA [id number] [place] [id number] [place] MCH (RBC) [Entitic mass] 35.8 pg High 26.0-34.0 [facility] Comment on above: Order Comment: Speci men Type: BLOOD SPECIMENOrdering Facility: [facility] Address: [address] [place] [address] Performed By: #### 5 7021-8 ####[facility] HOSPITALROBERTOGDEN REGIONAL [facility] [id number] [place] [address] [place] MCHC (RBC) [Mass/Vol] 33.6 g/dL Normal 30.5-36.0 [facility] Comment on above: Order Comment: Speci men Type: BLOOD SPECIMENOrdering Facility: [facility] Address: [address] [place] [address] Performed By: #### 5 7021-8 ####[facility] [id number] [place] [address] [place] MCV (RBC) [Entitic vol] 106.6 fL High 80.0-100.0 [facility] Comment on above: Order Comment: Speci men Type: BLOOD SPECIMENOrdering Facility: [facility] Address: [address] [place] [address] Performed By: #### 5 7021-8 ####[facility] [id number] [place] [address] [place] Monocytes (Bld) [#/Vol] 0.90 10*3/uL High <0.87 [facility] Comment on above: Order Comment: Speci men Type: BLOOD SPECIMENOrdering Facility: [facility] Address: [address] [place] [address] Performed By: #### 5 7021-8 ####[facility] HOSPITALNCOGDEN [facility] [id number] [place] [address] [place] Monocytes/100 WBC (Bld) 14.3 % Normal [facility] Comment on above: Order Comment: Speci men Type: BLOOD SPECIMENOrdering Facility: [facility] Address: [address] [place] [address] Performed By: #### 5 7021-8 ####[facility] KATELIA [id number] [place] [address] [place] Neutrophils (Bld) [#/Vol] 4.09 10*3/uL Normal 1.45-7.50 [facility] Comment on above: Order Comment: Speci men Type: BLOOD SPECIMENOrdering Facility: [facility] Address: [address] [place] [address] Performed By: #### 5 7021-8 ####[facility] HOSPITALROBERTLIA [id number] [place] [address] [place] Neutrophils/100 WBC (Bld) 65.1 % Normal [facility] Comment on above: Order Comment: Speci men Type: BLOOD SPECIMENOrdering Facility: [facility] Address: [address] [place] [address] Performed By: #### 5 7021-8 ####[facility] CENTERLIA [id number] [place] [address] [place] Nucleated RBC (Bld) [#/Vol] 10*3/uL Normal <0.01 [facility] Comment on above: Order Comment: Speci men Type: BLOOD SPECIMENOrdering Facility: [facility] Address: [address] [place] [address] Performed By: #### 5 7021-8 ####[facility] CENTERLIA [id number] [place] [address] [place] Nucleated RBC/100 WBC (Bld) [Ratio] 0.0 /100 WBC Normal [facility] Comment on above: Order Comment: Speci men Type: BLOOD SPECIMENOrdering Facility: [facility] Address: [address] [place] [address] Performed By: #### 5 7021-8 ####[facility] MILLIVANAWNCLIA [id number] [place] [address] [place] Platelet mean volume (Bld) [Entitic vol] 12.3 fL Normal 9.0-12.7 [facility] Comment on above: Order Comment: Speci men Type: BLOOD SPECIMENOrdering Facility: [facility] Address: [address] [place] [address] Performed By: #### 5 7021-8 ####[facility] HOSPITALNCLIA [id number] [place] [address] [place] Platelets (Bld) [#/Vol] 266 10*3/uL Normal 150-400 [facility] Comment on above: Order Comment: Speci men Type: BLOOD SPECIMENOrdering Facility: [facility] Address: [address] [place] [address] Performed By: #### 5 7021-8 ####[facility] HOSPITALNCLIA [id number] [place] [address] [place] RBC (Bld) [#/Vol] 2.71 10*6/uL Low 4.20-6.00 [facility] Comment on above: Order Comment: Speci men Type: BLOOD SPECIMENOrdering Facility: [facility] Address: [address] [place] [address] Performed By: #### 5 7021-8 ####[facility] HOSPITALNCLIA [id number] [place] [address] [place] WBC (Bld) [#/Vol] 6.29 10*3/uL Normal 3.70-11.00 [facility] Comment on above: Order Comment: Speci men Type: BLOOD SPECIMENOrdering Facility: [facility] Address: [address] [place] [address] Performed By: #### 5 7021-8 ####[facility] HOSPITALNCLIA [id number] [place] [address] [place] Basic metabolic 2000 panelon 04-14-2025 Anion gap [Moles/Vol] 13 mmol/L Normal 8-15 [facility] Comment on above: Order Comment: Speci men Type: BLOOD SPECIMENOrdering Facility: [facility] Address: [address] [place] [address] Performed By: #### 2 4321-2 ####[facility] HOSPITALWNCLIA [id number] [place] [address] [place] Calcium [Mass/Vol] 9.4 mg/dL Normal 8.5-10.2 [facility] Comment on above: Order Comment: Speci men Type: BLOOD SPECIMENOrdering Facility: [facility] Address: [address] [place] [address] Performed By: #### 2 4321-2 ####[facility]ENTERLIA [id number] [place] [address] [place] Chloride [Moles/Vol] 92 mmol/L Low 98-107 [facility] Comment on above: Order Comment: Speci men Type: BLOOD SPECIMENOrdering Facility: [facility] Address: [address] [place] [address] Performed By: #### 2 4321-2 ####[facility] HOSPITALROBERTLIA [id number] [place] [address] [place] CO2 [Moles/Vol] 31 mmol/L High 22-30 [facility] Comment on above: Order Comment: Speci men Type: BLOOD SPECIMENOrdering Facility: [facility] Address: [address] [place] [address] Performed By: #### 2 4321-2 ####[facility] HOSPITALNCLIA [id number] [place] [address] [place] Creatinine [Mass/Vol] 1.19 mg/dL Normal 0.73-1.22 [facility] Comment on above: Order Comment: Elfego gilbert Type: BLOOD SPECIMENOrdering Facility: [facility] Address: [address] [place] [address] Performed By: #### 2 4321-2 ####[facility] [id number] [place] [address] [place] Creatinine and Glomerular filtration rate.predicted panel (S/P/Bld) 58 mL/min/1.73m??? Low >=60 [facility] Comment on above: Order Comment: Elfego gilbert Type: BLOOD SPECIMENOrdering Facility: [facility] Address: [address] [place] [address] Result Comment: Concepción mated Glomerular Filtration Rate [...] actual GFR. Performed By: #### 2 4321-2 ####[facility] [id number] [place] [address] [place] Glucose [Mass/Vol] 145 mg/dL High 74-99 [facility] Comment on above: Order Comment: Elfego gilbert Type: BLOOD SPECIMENOrdering Facility: [facility] Address: [address] [place] [address] Result Comment: The [place] Diabetes Association (ADA) provides guidance for cutoff [...] Standards of Medical Care in Diabetes 2016, [place] [employer]. Diabetes Care. 2016.39(Suppl 1). Performed By: #### 2 4321-2 ####[facility] MEENAKSHIJEAN [id number] [place] [address] [place] Potassium [Moles/Vol] 4.3 mmol/L Normal 3.7-5.1 [facility] Comment on above: Order Comment: Speci men Type: BLOOD SPECIMENOrdering Facility: [facility] Address: [address] [place] [address] Performed By: #### 2 4321-2 ####[facility] HOSPITALMALENA [id number] [place] [address] [place] Sodium [Moles/Vol] 136 mmol/L Normal 136-144 [facility] Comment on above: Order Comment: Speci men Type: BLOOD SPECIMENOrdering Facility: [facility] Address: [address] [place] [address] Performed By: #### 2 4321-2 ####[facility] HOSPITALMALENA [id number] [place] [address] [place] Urea nitrogen [Mass/Vol] 37 mg/dL High 9-24 [facility] Comment on above: Order Comment: Speci men Type: BLOOD SPECIMENOrdering Facility: [facility] Address: [address] [place] [address] Performed By: #### 2 4321-2 ####[facility] HOSPITALROBERTLIA [id number] [place] [address] [place] CBC W Auto Differential pane l (Bld)on 04-14-2025 Basophils (Bld) [#/Vol] 0.06 10*3/uL Normal <0.11 [facility] Comment on above: Order Comment: Speci men Type: BLOOD SPECIMENOrdering Facility: [facility] Address: [address] [place] [address] Performed By: #### 5 7021-8 ####[facility] MILLWNCLIA [id number] [place] [address] [place] Basophils/100 WBC (Bld) 1.0 % Normal [facility] Comment on above: Order Comment: Speci men Type: BLOOD SPECIMENOrdering Facility: [facility] Address: [address] [place] [address] Performed By: #### 5 7021-8 ####[facility]ENTERLIA [id number] [place] [address] [place] Differential cell count method Nom (Bld) Auto Normal [facility] Comment on above: Order Comment: Speci men Type: BLOOD SPECIMENOrdering Facility: [facility] Address: [address] [place] [address] Performed By: #### 5 7021-8 ####[facility]ENTERLIA [id number] [place] [address] [place] Eosinophils (Bld) [#/Vol] 0.07 10*3/uL Normal <0.46 [facility] Comment on above: Order Comment: Speci men Type: BLOOD SPECIMENOrdering Facility: [facility] Address: [address] [place] [address] Performed By: #### 5 7021-8 ####[facility]ENTERLIA [id number] [place] [address] [place] Eosinophils/100 WBC (Bld) 1.2 % Normal [facility] Comment on above: Order Comment: Speci men Type: BLOOD SPECIMENOrdering Facility: [facility] Address: [address] [place] [address] Performed By: #### 5 7021-8 ####[facility] HOSPITALNCLIA [id number] [place] [address] [place] Erythrocyte distribution width (RBC) [Ratio] 21.8 % High 11.5-15.0 [facility] Comment on above: Order Comment: Speci men Type: BLOOD SPECIMENOrdering Facility: [facility] Address: [address] [place] [address] Performed By: #### 5 7021-8 ####[facility] HOSPITALNCOGD[facility] [id number] [place] [address] [place] Hematocrit (Bld) [Volume fraction] 30.8 % Low 39.0-51.0 [facility] Comment on above: Order Comment: Speci men Type: BLOOD SPECIMENOrdering Facility: [facility] Address: [address] [place] [address] Performed By: #### 5 7021-8 ####[facility] [id number] [place] [address] [place] Hemoglobin (Bld) [Mass/Vol] 10.3 g/dL Low 13.0-17.0 [facility] Comment on above: Order Comment: Speci men Type: BLOOD SPECIMENOrdering Facility: [facility] Address: [address] [place] [address] Performed By: #### 5 7021-8 ####[facility] [id number] [place] [address] [place] Immature granulocytes (Bld) [#/Vol] 10*3/uL Normal <0.10 [facility] Comment on above: Order Comment: Speci men Type: BLOOD SPECIMENOrdering Facility: [facility] Address: [address] [place] [address] Performed By: #### 5 7021-8 ####[facility] [id number] [place] [address] [place] Immature granulocytes/100 WBC (Bld) 0.3 % Normal [facility] Comment on above: Order Comment: Speci men Type: BLOOD SPECIMENOrdering Facility: [facility] Address: [address] [place] [address] Performed By: #### 5 7021-8 ####[facility] [id number] [place] [address] [place] Lymphocytes (Bld) [#/Vol] 1.01 10*3/uL Normal 1.00-4.00 [facility] Comment on above: Order Comment: Speci men Type: BLOOD SPECIMENOrdering Facility: [facility] Address: [address] [place] [address] Performed By: #### 5 7021-8 ####[facility] [id number] [place] [address] [place] Lymphocytes/100 WBC (Bld) 17.6 % Normal [facility] Comment on above: Order Comment: Speci men Type: BLOOD SPECIMENOrdering Facility: [facility] Address: [address] [place] [address] Performed By: #### 5 7021-8 ####[facility] [id number] [place] [address] [place] MCH (RBC) [Entitic mass] 36.4 pg High 26.0-34.0 [facility] Comment on above: Order Comment: Speci men Type: BLOOD SPECIMENOrdering Facility: [facility] Address: [address] [place] [address] Performed By: #### 5 7021-8 ####[facility]ENTERLIA [id number] [place] [address] [place] MCHC (RBC) [Mass/Vol] 33.4 g/dL Normal 30.5-36.0 [facility] Comment on above: Order Comment: Speci men Type: BLOOD SPECIMENOrdering Facility: [facility] Address: [address] [place] [address] Performed By: #### 5 7021-8 ####[facility] HOSPITALWNCLIA [id number] [place] [address] [place] MCV (RBC) [Entitic vol] 108.8 fL High 80.0-100.0 [facility] Comment on above: Order Comment: Speci men Type: BLOOD SPECIMENOrdering Facility: [facility] Address: [address] [place] [address] Performed By: #### 5 7021-8 ####[facility] HOSPITALROBERTA [id number] [place] [address] [place] Monocytes (Bld) [#/Vol] 0.85 10*3/uL Normal <0.87 [facility] Comment on above: Order Comment: Speci men Type: BLOOD SPECIMENOrdering Facility: [facility] Address: [address] [place] [address] Performed By: #### 5 7021-8 ####[facility] [id number] [place] [address] [place] Monocytes/100 WBC (Bld) 14.8 % Normal [facility] Comment on above: Order Comment: Speci men Type: BLOOD SPECIMENOrdering Facility: [facility] Address: [address] [place] [address] Performed By: #### 5 7021-8 ####[facility]ENTERLIA [id number] [place] [address] [place] Neutrophils (Bld) [#/Vol] 3.74 10*3/uL Normal 1.45-7.50 [facility] Comment on above: Order Comment: Speci men Type: BLOOD SPECIMENOrdering Facility: [facility] Address: [address] [place] [address] Performed By: #### 5 7021-8 ####[facility] HOSPITALNCLIA [id number] [place] [address] [place] Neutrophils/100 WBC (Bld) 65.1 % Normal [facility] Comment on above: Order Comment: Speci men Type: BLOOD SPECIMENOrdering Facility: [facility] Address: [address] [place] [address] Performed By: #### 5 7021-8 ####[facility] [id number] [place] [address] [place] Nucleated RBC (Bld) [#/Vol] 0.02 10*3/uL High <0.01 [facility] Comment on above: Order Comment: Speci men Type: BLOOD SPECIMENOrdering Facility: [facility] Address: [address] [place] [address] Performed By: #### 5 7021-8 ####[facility] [id number] [place] [address] [place] Nucleated RBC/100 WBC (Bld) [Ratio] 0.3 /100 WBC Normal [facility] Comment on above: Order Comment: Speci men Type: BLOOD SPECIMENOrdering Facility: [facility] Address: [address] [place] [address] Performed By: #### 5 7021-8 ####[facility] [id number] [place] [address] [place] Platelet mean volume (Bld) [Entitic vol] 11.6 fL Normal 9.0-12.7 [facility] Comment on above: Order Comment: Speci men Type: BLOOD SPECIMENOrdering Facility: [facility] Address: [address] [place] [address] Performed By: #### 5 7021-8 ####[facility] [id number] [place] [address] [place] Platelets (Bld) [#/Vol] 250 10*3/uL Normal 150-400 [facility] Comment on above: Order Comment: Speci men Type: BLOOD SPECIMENOrdering Facility: [facility] Address: [address] [place] [address] Performed By: #### 5 7021-8 ####[facility] HOSPITALNCLIA [id number] [place] [address] [place] RBC (Bld) [#/Vol] 2.83 10*6/uL Low 4.20-6.00 [facility] Comment on above: Order Comment: Speci men Type: BLOOD SPECIMENOrdering Facility: [facility] Address: [address] [place] [address] Performed By: #### 5 7021-8 ####[facility] HOSPITALNCLIA [id number] [place] [address] [place] WBC (Bld) [#/Vol] 5.75 10*3/uL Normal 3.70-11.00 [facility] Comment on above: Order Comment: Speci men Type: BLOOD SPECIMENOrdering Facility: [facility] Address: [address] [place] [address] Performed By: #### 5 7021-8 ####[facility] HOSPITALNCLIA [id number] [place] [address] [place] CNOVon 04-07-2025 CNOV Office Visit ([id number] ) -- SRINI LUIS ([id number]) 1935 Rob[place] Date Time Provider Department 04/07/25 11:40 AM IRAM JOHNSON [id number] During your visit today, we recorded the following information about you: Pulse Blood pressure Weight Height 83/minute 130/68 78.5 kg 1.702 m Iram Johnson, TOOL ROOM SUPERVISOR.TUMOR REGISTRAR 04/07/2025 11:40 AM Signed [facility] Ronaldo Pleitez MD SUBJECTIVE: Srini [...] to chronic myelomonocytic leukemia treated with erythropoietin ([facility]) 11/16/2024 B12 deficiency 07/11/2020 Benign hypertension CAD (coronary artery disease) CHB (complete heart block) ([facility]) 09/17/2022 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; Confirmed Blk below His by His Bundle Electrogram Chronic atrial fibrillation ([facility]) 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 ([facility]) 12/01/2022 CVA (cerebral vascular accident) ([facility]) 08/22/2022 Diverticulosis H/O echocardiogram 09/16/2022 EF 68?5 %, mod concentric LVH, mod TR, mild-mod MR with mod MAC History of anemia History of CVA (cerebrovascular accident) 08/22/2022 Pontine infarction, R>L History of stress test 10/12/2024 EF 43%, mild ischemia involving the apex 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 [...] RIGHT OP SURGERY Right 12/18/[address] [facility] ARTHROPLASTY TOTAL SHOULDER 11/09/2008 right ARTHROSCOPY OF JOINT UNLISTED 1999 Elbow right CABG (4) VEIN GRAFTS AND ARTERIAL GRAFT(S) 07/21/[address] [facility] COLONOSCOPY FLX DX W/COLLJ SPEC WHEN PFRMD 09/01/2005 Colonoscopy COLONOSCOPY FLX DX W/COLLJ SPEC WHEN PFRMD 09/27/2015 Colonoscopy REMOVAL OF TONSILS,<12 Y/O S $ DUAL CHMBR PACER [id number] Left 09/17/2022 Dual Pacer (CrowdStrikeroniSqoot) for High Grade AV Blk below His; [...] mouth once vivian (more content not included)... [facility] CNOV Office Visit ([id number] ) -- SRINI LUIS ([id number]) 1935 M Date Time Provider Department 04/07/25 11:[address] 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 #:[id number] Prescriptions as of 06/13/2025 - furosemide (LASIX) [...] 06/16/2023 PAF (paroxysmal atrial fibrillation) (HCC) [I48*202007/23/2023 senior care current use of anticoagulants with IN* 09/15/2022 [...] generalized [R53.1] (more content not included)... 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 Confirmed by OSCAR LEHMAN MD ([id number]) on 04/15/2025 11:39:30 AM NAME : SRINI LUIS PID : [id number] : 1935 Gender : Male Race : ORD : [id number] Procedure Date : Apr 07 2025 11:13:14 Edit Date : Apr 15 2025 11:39:31 Diagnosis: Sinus rhythm 1st degree AV block Right bundle branch block Premature ventricular complexes Abnormal ECG When compared with ECG of 18-Sep-2022 06:17, 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 Confirmed by OSCAR LEHMAN MD ([id number]) on 04/15/2025 11:39:30 AM Test Reason : Location : 201 : [employer] Overread By : OSCAR LEHMAN MD Edited By : OSCAR LEHMAN MD Referred By : , Acquired by : ruba, [facility] CNPNon 04-05-2025 CNPN Normal [facility] CBC W Auto Differential pane l (Bld)on 03-31-2025 Basophils (Bld) [#/Vol] 0.04 10*3/uL Normal <0.11 [facility] Comment on above: Order Comment: Speci men Type: BLOOD SPECIMENOrdering Facility: [facility] Address: [address] [place] [address] Performed By: #### 5 7021-8 ####[facility] MILLWLALIA [id number] [place] [address] [place] Basophils/100 WBC (Bld) 0.8 % Normal [facility] Comment on above: Order Comment: Speci men Type: BLOOD SPECIMENOrdering Facility: [facility] Address: [address] [place] [address] Performed By: #### 5 7021-8 ####[facility] [id number] [place] [address] [place] Differential cell count method Nom (Bld) Auto Normal [facility] Comment on above: Order Comment: Speci men Type: BLOOD SPECIMENOrdering Facility: [facility] Address: [address] [place] [address] Performed By: #### 5 7021-8 ####[facility] [id number] [place] [address] [place] Eosinophils (Bld) [#/Vol] 0.11 10*3/uL Normal <0.46 [facility] Comment on above: Order Comment: Speci men Type: BLOOD SPECIMENOrdering Facility: [facility] Address: [address] [place] [address] Performed By: #### 5 7021-8 ####[facility] [id number] [place] [address] [place] Eosinophils/100 WBC (Bld) 2.1 % Normal [facility] Comment on above: Order Comment: Speci men Type: BLOOD SPECIMENOrdering Facility: [facility] Address: [address] [place] [address] Performed By: #### 5 7021-8 ####[facility] JONHWilliamsNCLIA [id number] [place] [address] [place] Erythrocyte distribution width (RBC) [Ratio] 22.5 % High 11.5-15.0 [facility] Comment on above: Order Comment: Speci men Type: BLOOD SPECIMENOrdering Facility: [facility] Address: [address] [place] [address] Performed By: #### 5 7021-8 ####[facility] H[facility]PITALNCLIA [id number] [place] [address] [place] Hematocrit (Bld) [Volume fraction] 26.4 % Low 39.0-51.0 [facility] Comment on above: Order Comment: Speci men Type: BLOOD SPECIMENOrdering Facility: [facility] Address: [address] [place] [address] Performed By: #### 5 7021-8 ####[facility] HOSPITALNCLIA [id number] [place] [address] [place] Hemoglobin (Bld) [Mass/Vol] 9.0 g/dL Low 13.0-17.0 [facility] Comment on above: Order Comment: Speci men Type: BLOOD SPECIMENOrdering Facility: [facility] Address: [address] [place] [address] Performed By: #### 5 7021-8 ####[facility] HOSPITALNCLIA [id number] [place] [address] [place] Immature granulocytes (Bld) [#/Vol] 10*3/uL Normal <0.10 [facility] Comment on above: Order Comment: Speci men Type: BLOOD SPECIMENOrdering Facility: [facility] Address: [address] [place] [address] Performed By: #### 5 7021-8 ####[facility] [id number] [place] [address] [place] Immature granulocytes/100 WBC (Bld) 0.4 % Normal [facility] Comment on above: Order Comment: Speci men Type: BLOOD SPECIMENOrdering Facility: [facility] Address: [address] [place] [address] Performed By: #### 5 7021-8 ####[facility] [id number] [place] [address] [place] Lymphocytes (Bld) [#/Vol] 1.12 10*3/uL Normal 1.00-4.00 [facility] Comment on above: Order Comment: Speci men Type: BLOOD SPECIMENOrdering Facility: [facility] Address: [address] [place] [address] Performed By: #### 5 7021-8 ####[facility] [id number] [place] [address] [place] Lymphocytes/100 WBC (Bld) 21.4 % Normal [facility] Comment on above: Order Comment: Speci men Type: BLOOD SPECIMENOrdering Facility: [facility] Address: [address] [place] [address] Performed By: #### 5 7021-8 ####[facility] [id number] [place] [address] [place] MCH (RBC) [Entitic mass] 37.5 pg High 26.0-34.0 [facility] Comment on above: Order Comment: Speci men Type: BLOOD SPECIMENOrdering Facility: [facility] Address: [address] [place] [address] Performed By: #### 5 7021-8 ####[facility] [id number] [place] [address] [place] MCHC (RBC) [Mass/Vol] 34.1 g/dL Normal 30.5-36.0 [facility] Comment on above: Order Comment: Speci men Type: BLOOD SPECIMENOrdering Facility: [facility] Address: [address] [place] [address] Performed By: #### 5 7021-8 ####[facility] HOSPITALNCCONSTANCE [id number] [place] [address] [place] MCV (RBC) [Entitic vol] 110.0 fL High 80.0-100.0 [facility] Comment on above: Order Comment: Speci men Type: BLOOD SPECIMENOrdering Facility: [facility] Address: [address] [place] [address] Performed By: #### 5 7021-8 ####[facility]PITALNCOGD[facility] [id number] [place] [address] [place] Monocytes (Bld) [#/Vol] 0.70 10*3/uL Normal <0.87 [facility] Comment on above: Order Comment: Speci men Type: BLOOD SPECIMENOrdering Facility: [facility] Address: [address] [place] [address] Performed By: #### 5 7021-8 ####[facility] HOSPITALNCA [id number] [place] [address] [place] Monocytes/100 WBC (Bld) 13.4 % Normal [facility] Comment on above: Order Comment: Speci men Type: BLOOD SPECIMENOrdering Facility: [facility] Address: [address] [place] [address] Performed By: #### 5 7021-8 ####[facility] HOSPITALNCA [id number] [place] [address] [place] Neutrophils (Bld) [#/Vol] 3.24 10*3/uL Normal 1.45-7.50 [facility] Comment on above: Order Comment: Speci men Type: BLOOD SPECIMENOrdering Facility: [facility] Address: [address] [place] [address] Performed By: #### 5 7021-8 ####[facility] MILLWNCLIA [id number] [place] [address] [place] Neutrophils/100 WBC (Bld) 61.9 % Normal [facility] Comment on above: Order Comment: Speci men Type: BLOOD SPECIMENOrdering Facility: [facility] Address: [address] [place] [address] Performed By: #### 5 7021-8 ####[facility]ENTERLIA [id number] [place] [address] [place] Nucleated RBC (Bld) [#/Vol] 0.02 10*3/uL High <0.01 [facility] Comment on above: Order Comment: Speci men Type: BLOOD SPECIMENOrdering Facility: [facility] Address: [address] [place] [address] Performed By: #### 5 7021-8 ####[facility] [id number] [place] [address] [place] Nucleated RBC/100 WBC (Bld) [Ratio] 0.4 /100 WBC Normal [facility] Comment on above: Order Comment: Speci men Type: BLOOD SPECIMENOrdering Facility: [facility] Address: [address] [place] [address] Performed By: #### 5 7021-8 ####[facility]ENTERLIA [id number] [place] [address] [place] Platelet mean volume (Bld) [Entitic vol] 11.4 fL Normal 9.0-12.7 [facility] Comment on above: Order Comment: Speci men Type: BLOOD SPECIMENOrdering Facility: [facility] Address: [address] [place] [address] Performed By: #### 5 7021-8 ####[facility]ENTERLIA [id number] [place] [address] [place] Platelets (Bld) [#/Vol] 240 10*3/uL Normal 150-400 [facility] Comment on above: Order Comment: Speci men Type: BLOOD SPECIMENOrdering Facility: [facility] Address: [address] [place] [address] Performed By: #### 5 7021-8 ####[facility] HOSPITALWilliamsMALENA [id number] [place] [address] [place] RBC (Bld) [#/Vol] 2.40 10*6/uL Low 4.20-6.00 [facility] Comment on above: Order Comment: Speci men Type: BLOOD SPECIMENOrdering Facility: [facility] Address: [address] [place] [address] Performed By: #### 5 7021-8 ####[facility] HOSPITALMALENA [id number] [place] [address] [place] WBC (Bld) [#/Vol] 5.23 10*3/uL Normal 3.70-11.00 [facility] Comment on above: Order Comment: Speci men Type: BLOOD SPECIMENOrdering Facility: [facility] Address: [address] [place] [address] Performed By: #### 5 7021-8 ####[facility] HOSPITALMALENA [id number] [place] [address] [place] CNOVSPon 03-31-2025 CNOVSP Normal [facility] Comprehensive metabolic 2000 panelon 03-31-2025 Albumin [Mass/Vol] 4.1 g/dL Normal 3.9-4.9 [facility] Comment on above: Order Comment: Speci men Type: BLOOD SPECIMENOrdering Facility: [facility] Address: [address] [place] [address] Performed By: #### 2 4323-8 ####[facility] HOSPITALMALENA [id number] [place] [address] [place] ALP [Catalytic activity/Vol] 64 U/L Normal 38-113 [facility] Comment on above: Order Comment: Speci men Type: BLOOD SPECIMENOrdering Facility: [facility] Address: [address] [place] [address] Performed By: #### 2 4323-8 ####[facility] HOSPITALNCLIA [id number] [place] [address] [place] ALT [Catalytic activity/Vol] 17 U/L Normal 10-54 [facility] Comment on above: Order Comment: Speci men Type: BLOOD SPECIMENOrdering Facility: [facility] Address: [address] [place] [address] Performed By: #### 2 4323-8 ####[facility] HOSPITALNCOGD[facility] [id number] [place] [address] [place] Anion gap [Moles/Vol] 11 mmol/L Normal 8-15 [facility] Comment on above: Order Comment: Speci men Type: BLOOD SPECIMENOrdering Facility: [facility] Address: [address] [place] [address] Performed By: #### 2 4323-8 ####[facility] HOSPITALNCLIA [id number] [place] [address] [place] AST [Catalytic activity/Vol] 23 U/L Normal 14-40 [facility] Comment on above: Order Comment: Speci men Type: BLOOD SPECIMENOrdering Facility: [facility] Address: [address] [place] [address] Performed By: #### 2 4323-8 ####[facility] HOSPITALNCLIA [id number] [place] [address] [place] Bilirubin [Mass/Vol] 1.8 mg/dL High 0.2-1.3 [facility] Comment on above: Order Comment: Speci men Type: BLOOD SPECIMENOrdering Facility: [facility] Address: [address] [place] [address] Performed By: #### 2 4323-8 ####[facility] [id number] [place] [address] [place] Calcium [Mass/Vol] 8.9 mg/dL Normal 8.5-10.2 [facility] Comment on above: Order Comment: Speci men Type: BLOOD SPECIMENOrdering Facility: [facility] Address: [address] [place] [address] Performed By: #### 2 4323-8 ####[facility] HOSPITALNCLIA [id number] [place] [address] [place] Chloride [Moles/Vol] 103 mmol/L Normal 98-107 [facility] Comment on above: Order Comment: Speci men Type: BLOOD SPECIMENOrdering Facility: [facility] Address: [address] [place] [address] Performed By: #### 2 4323-8 ####[facility] HOSPITALKOSTAA [id number] [place] [address] [place] CO2 [Moles/Vol] 25 mmol/L Normal 22-30 [facility] Comment on above: Order Comment: Speci men Type: BLOOD SPECIMENOrdering Facility: [facility] Address: [address] [place] [address] Performed By: #### 2 4323-8 ####[facility] HOSPITALNCLIA [id number] [place] [address] [place] Creatinine [Mass/Vol] 0.99 mg/dL Normal 0.73-1.22 [facility] Comment on above: Order Comment: Speci men Type: BLOOD SPECIMENOrdering Facility: [facility] Address: [address] [place] [address] Performed By: #### 2 4323-8 ####[facility] HOSPITALNCLI [id number] [place] [address] [place] Creatinine and Glomerular filtration rate.predicted panel (S/P/Bld) 73 mL/min/1.73m??? Normal >=60 [facility] Comment on above: Order Comment: Elfego gilbert Type: BLOOD SPECIMENOrdering Facility: [facility] Address: [address] [place] [address] Result Comment: Concepción mated Glomerular Filtration Rate [...] actual GFR. Performed By: #### 2 4323-8 ####[facility] [id number] [place] [address] [place] Glucose [Mass/Vol] 163 mg/dL High 74-99 [facility] Comment on above: Order Comment: Elfego gilbert Type: BLOOD SPECIMENOrdering Facility: [facility] Address: [address] [place] [address] Result Comment: The [place] [employer] (ADA) provides guidance for cutoff [...] Standards of Medical Care in Diabetes 2016, [place] [employer]. Diabetes Care. 2016.39(Suppl 1). Performed By: #### 2 4323-8 ####[facility] [id number] [place] [address] [place] Potassium [Moles/Vol] 4.3 mmol/L Normal 3.7-5.1 [facility] Comment on above: Order Comment: Speci men Type: BLOOD SPECIMENOrdering Facility: [facility] Address: [address] [place] [address] Performed By: #### 2 4323-8 ####[facility] HOSPITALNCRADHA [id number] [place] [address] [place] Protein [Mass/Vol] 6.1 g/dL Low 6.3-8.0 [facility] Comment on above: Order Comment: Speci men Type: BLOOD SPECIMENOrdering Facility: [facility] Address: [address] [place] [address] Performed By: #### 2 4323-8 ####[facility] HOSPITALMALENA [id number] [place] [address] [place] Sodium [Moles/Vol] 139 mmol/L Normal 136-144 [facility] Comment on above: Order Comment: Speci men Type: BLOOD SPECIMENOrdering Facility: [facility] Address: [address] [place] [address] Performed By: #### 2 4323-8 ####[facility] HOSPITALNCRADHA [id number] [place] [address] [place] Urea nitrogen [Mass/Vol] 30 mg/dL High 9-24 [facility] Comment on above: Order Comment: Speci men Type: BLOOD SPECIMENOrdering Facility: [facility] Address: [address] [place] [address] Performed By: #### 2 4323-8 ####[facility] HOSPITALNCLIA [id number] [place] [address] [place] EPO SerPl-aCncon 03-31-2025 Erythropoietin (EPO) Qn 78.7 mIU/mL High 2.6-18.5 [facility] Comment on above: Order Comment: Speci men Type: BLOOD SPECIMENOrdering Facility: [facility] Address: [address] [place] [address] Performed By: #### 1 5061-5 ####[facility] LABCLIA [id number] [place] [address] [place] Ferritin SerPl-[facility] 2024 Ferritin [Mass/Vol] 279.0 ng/mL Normal 30.3-565.7 [facility] Comment on above: Order Comment: Speci men Type: BLOOD SPECIMENOrdering Facility: [facility] Address: [address] [place] [address] Performed By: #### 5 0190-8, 00824-1, 2276-4 ####[facility] LABIA [id number] [address] [place] Folate SerPl-[facility] 03-31-20 Folate [Mass/Vol] ng/mL Normal >4.7 [facility] Comment on above: Order Comment: Speci men Type: BLOOD SPECIMENOrdering Facility: [facility] Address: [address] [place] [address] Result Comment: A re sult of > 20 ng/mL is not necessarily indicative of a pathologic or treatable condition: it reflects a limitation of the test methodology.Assay reference range: 4.8 to 24.2 ng/mL. Suitable for detection of folate deficiency.Reference:Folate III (Folate III) [package insert V 1.0 Vincentian]. [employer] [employer], [place], [place]: September 2015. Performed By: #### 2 132-9, 2284-8 ####[facility] LABIA [id number] [place] [address] [place] Iron and Iron binding capaci ty panelon 03-31-2025 Iron [Mass/Vol] 179 ug/dL Normal 41-186 [facility] Comment on above: Order Comment: Speci men Type: BLOOD SPECIMENOrdering Facility: [facility] Address: [address] [place] [address] Performed By: #### 5 0190-8, 20255-4, 2276-4 ####[facility] [id number] [place] [address] [place] Iron binding capacity [Mass/Vol] 198 ug/dL Low 232-386 [facility] Comment on above: Order Comment: Speci men Type: BLOOD SPECIMENOrdering Facility: [facility] Address: [address] [place] [address] Performed By: #### 5 0190-8, 24155-8, 2276-4 ####[facility] [id number] [place] [address] [place] Iron/TIBC [Molar ratio] 90.4 % High 15.0-57.0 [facility] Comment on above: Order Comment: Speci men Type: BLOOD SPECIMENOrdering Facility: [facility] Address: [address] [place] [address] Performed By: #### 5 0190-8, 95660-8, 2276-4 ####[facility] [id number] [place] [address] [place] Methylmalonate SerPl-sCncon 03-31-2025 Methylmalonate [Moles/Vol] 0.23 umol/L Normal <=0.40 [facility] Comment on above: Order Comment: Speci men Type: BLOOD SPECIMENOrdering Facility: [facility] Address: [address] [place] [address] Result Comment: This test was developed, and its performance characteristics determined by the [facility] Department of Pathology and Laboratory Medicine. It has not been cleared or approved by the FDA. The [facility] Department of Pathology and Laboratory Medicine is regulated under CLIA as qualified to perform high-complexity testing. This test is used for clinical purposes. It should not be regarded as investigational or for research. Performed By: #### 1 3964-2 ####[facility] LABIA [id number] [place] [id number] [place] NT-proBNP [facility] 03-31 Natriuretic peptide.B prohormone N-Terminal [Mass/Vol] 4857 pg/mL High <450 [facility] Comment on above: Order Comment: Speci men Type: BLOOD SPECIMENOrdering Facility: [facility] Address: [address] [place] [address] Performed By: #### 5 0190-8, 25429-7, 2276-4 ####[facility] LABIA [id number] [place] [id number] [place] Vit B12 [facility] 025 Cobalamin (Vitamin B12) [Mass/Vol] 685 pg/mL Normal 232-1245 [facility] Comment on above: Order Comment: Speci men Type: BLOOD SPECIMENOrdering Facility: [facility] Address: [address] [place] [address] Performed By: #### 2 132-9, 2284-8 ####[facility]OSPITALIA [id number] [place] [address] [place] US DVT LOWER BILon US DVT LOWER RALF Normal [facility] CNOVon 03-27-2025 CNOV Normal [facility] CBC W Auto Differential pane l (Bld)on 03-17-2025 Basophils (Bld) [#/Vol] 0.07 10*3/uL Normal <0.11 [facility] Comment on above: Order Comment: Speci men Type: BLOOD SPECIMENOrdering Facility: [facility] Address: [address] [place] [address] Performed By: #### 5 7021-8 ####[facility]NS[facility]IPMALENA [id number] [place] [address] [place] Basophils/100 WBC (Bld) 1.3 % Normal [facility] Comment on above: Order Comment: Speci men Type: BLOOD SPECIMENOrdering Facility: [facility] Address: [address] [place] [address] Performed By: #### 5 7021-8 ####[facility] JONHCHARLOTTENCLIA [id number] [place] [address] [place] Differential cell count method Nom (Bld) Auto Normal [facility] Comment on above: Order Comment: Speci men Type: BLOOD SPECIMENOrdering Facility: [facility] Address: [address] [place] [address] Performed By: #### 5 7021-8 ####[facility] HOSPITALNCA [id number] [place] [address] [place] Eosinophils (Bld) [#/Vol] 0.10 10*3/uL Normal <0.46 [facility] Comment on above: Order Comment: Speci men Type: BLOOD SPECIMENOrdering Facility: [facility] Address: [address] [place] [address] Performed By: #### 5 7021-8 ####[facility] [id number] [place] [address] [place] Eosinophils/100 WBC (Bld) 1.8 % Normal [facility] Comment on above: Order Comment: Speci men Type: BLOOD SPECIMENOrdering Facility: [facility] Address: [address] [place] [address] Performed By: #### 5 7021-8 ####[facility]ENTERLIA [id number] [place] [address] [place] Erythrocyte distribution width (RBC) [Ratio] 22.2 % High 11.5-15.0 [facility] Comment on above: Order Comment: Speci men Type: BLOOD SPECIMENOrdering Facility: [facility] Address: [address] [place] [address] Performed By: #### 5 7021-8 ####[facility] HOSPITALNCOGDEN [facility] [id number] [place] [address] [place] Hematocrit (Bld) [Volume fraction] 27.5 % Low 39.0-51.0 [facility] Comment on above: Order Comment: Speci men Type: BLOOD SPECIMENOrdering Facility: [facility] Address: [address] [place] [address] Performed By: #### 5 7021-8 ####[facility] [id number] [place] [address] [place] Hemoglobin (Bld) [Mass/Vol] 9.3 g/dL Low 13.0-17.0 [facility] Comment on above: Order Comment: Speci men Type: BLOOD SPECIMENOrdering Facility: [facility] Address: [address] [place] [address] Performed By: #### 5 7021-8 ####[facility] [id number] [place] [address] [place] Immature granulocytes (Bld) [#/Vol] 0.03 10*3/uL Normal <0.10 [facility] Comment on above: Order Comment: Speci men Type: BLOOD SPECIMENOrdering Facility: [facility] Address: [address] [place] [address] Performed By: #### 5 7021-8 ####[facility] CENTERRADHA [id number] [place] [address] [place] Immature granulocytes/100 WBC (Bld) 0.6 % Normal [facility] Comment on above: Order Comment: Speci men Type: BLOOD SPECIMENOrdering Facility: [facility] Address: [address] [place] [address] Performed By: #### 5 7021-8 ####[facility] CENTERLIA [id number] [place] [address] [place] Lymphocytes (Bld) [#/Vol] 1.31 10*3/uL Normal 1.00-4.00 [facility] Comment on above: Order Comment: Speci men Type: BLOOD SPECIMENOrdering Facility: [facility] Address: [address] [place] [address] Performed By: #### 5 7021-8 ####[facility] [id number] [place] [address] [place] Lymphocytes/100 WBC (Bld) 24.0 % Normal [facility] Comment on above: Order Comment: Speci men Type: BLOOD SPECIMENOrdering Facility: [facility] Address: [address] [place] [address] Performed By: #### 5 7021-8 ####[facility] HOSPITALNCOGDEN [facility] [id number] [place] [address] [place] MCH (RBC) [Entitic mass] 37.5 pg High 26.0-34.0 [facility] Comment on above: Order Comment: Speci men Type: BLOOD SPECIMENOrdering Facility: [facility] Address: [address] [place] [address] Performed By: #### 5 7021-8 ####[facility] [id number] [place] [address] [place] MCHC (RBC) [Mass/Vol] 33.8 g/dL Normal 30.5-36.0 [facility] Comment on above: Order Comment: Speci men Type: BLOOD SPECIMENOrdering Facility: [facility] Address: [address] [place] [address] Performed By: #### 5 7021-8 ####[facility] [id number] [place] [address] [place] MCV (RBC) [Entitic vol] 110.9 fL High 80.0-100.0 [facility] Comment on above: Order Comment: Speci men Type: BLOOD SPECIMENOrdering Facility: [facility] Address: [address] [place] [address] Performed By: #### 5 7021-8 ####[facility] MILLTOWNCLIA [id number] [place] [address] [place] Monocytes (Bld) [#/Vol] 0.71 10*3/uL Normal <0.87 [facility] Comment on above: Order Comment: Speci men Type: BLOOD SPECIMENOrdering Facility: [facility] Address: [address] [place] [address] Performed By: #### 5 7021-8 ####[facility] MILLTOWNCLIA [id number] [place] [address] [place] Monocytes/100 WBC (Bld) 13.0 % Normal [facility] Comment on above: Order Comment: Speci men Type: BLOOD SPECIMENOrdering Facility: [facility] Address: [address] [place] [address] Performed By: #### 5 7021-8 ####[facility] HOSPITALWNCLIA [id number] [place] [address] [place] Neutrophils (Bld) [#/Vol] 3.23 10*3/uL Normal 1.45-7.50 [facility] Comment on above: Order Comment: Speci men Type: BLOOD SPECIMENOrdering Facility: [facility] Address: [address] [place] [address] Performed By: #### 5 7021-8 ####[facility] MILLTOWNCLIA [id number] [place] [address] [place] Neutrophils/100 WBC (Bld) 59.3 % Normal [facility] Comment on above: Order Comment: Speci men Type: BLOOD SPECIMENOrdering Facility: [facility] Address: [address] [place] [address] Performed By: #### 5 7021-8 ####[facility] MILLTOWNCLIA [id number] [place] [address] [place] Nucleated RBC (Bld) [#/Vol] 0.04 10*3/uL High <0.01 [facility] Comment on above: Order Comment: Speci men Type: BLOOD SPECIMENOrdering Facility: [facility] Address: [address] [place] [address] Performed By: #### 5 7021-8 ####[facility]ITALMALENA [id number] [place] [address] [place] Nucleated RBC/100 WBC (Bld) [Ratio] 0.7 /100 WBC Normal [facility] Comment on above: Order Comment: Speci men Type: BLOOD SPECIMENOrdering Facility: [facility] Address: [address] [place] [address] Performed By: #### 5 7021-8 ####[facility]ITALM[facility] [id number] [place] [address] [place] Platelet mean volume (Bld) [Entitic vol] 11.6 fL Normal 9.0-12.7 [facility] Comment on above: Order Comment: Speci men Type: BLOOD SPECIMENOrdering Facility: [facility] Address: [address] [place] [address] Performed By: #### 5 7021-8 ####[facility]ITAL[facility] [id number] [place] [address] [place] Platelets (Bld) [#/Vol] 300 10*3/uL Normal 150-400 [facility] Comment on above: Order Comment: Speci men Type: BLOOD SPECIMENOrdering Facility: [facility] Address: [address] [place] [address] Performed By: #### 5 7021-8 ####[facility] HOSPITALNCLIManuel [id number] [place] [address] [place] RBC (Bld) [#/Vol] 2.48 10*6/uL Low 4.20-6.00 [facility] Comment on above: Order Comment: Speci men Type: BLOOD SPECIMENOrdering Facility: [facility] Address: [address] [place] [address] Performed By: #### 5 7021-8 ####[facility] HOSPITALNCA [id number] [place] [address] [place] WBC (Bld) [#/Vol] 5.45 10*3/uL Normal 3.70-11.00 [facility] Comment on above: Order Comment: Speci men Type: BLOOD SPECIMENOrdering Facility: [facility] Address: [address] [place] [address] Performed By: #### 5 7021-8 ####[facility] [id number] [place] [address] [place] CNPNon 03-17-2025 CNPN Normal [facility] CBC W Auto Differential pane l (Bld)on 03-03-2025 Basophils (Bld) [#/Vol] 0.05 10*3/uL Normal <0.11 [facility] Comment on above: Order Comment: Speci men Type: BLOOD SPECIMENOrdering Facility: [facility] Address: [address] [place] [address] Performed By: #### 5 7021-8 ####[facility] [id number] [place] [address] [place] Basophils/100 WBC (Bld) 0.8 % Normal [facility] Comment on above: Order Comment: Speci men Type: BLOOD SPECIMENOrdering Facility: [facility] Address: [address] [place] [address] Performed By: #### 5 7021-8 ####[facility] HOSPITALNCLIA [id number] [place] [address] [place] Differential cell count method Nom (Bld) Auto Normal [facility] Comment on above: Order Comment: Speci men Type: BLOOD SPECIMENOrdering Facility: [facility] Address: [address] [place] [address] Performed By: #### 5 7021-8 ####[facility] [id number] [place] [address] [place] Eosinophils (Bld) [#/Vol] 0.11 10*3/uL Normal <0.46 [facility] Comment on above: Order Comment: Speci men Type: BLOOD SPECIMENOrdering Facility: [facility] Address: [address] [place] [address] Performed By: #### 5 7021-8 ####[facility] [id number] [place] [address] [place] Eosinophils/100 WBC (Bld) 1.8 % Normal [facility] Comment on above: Order Comment: Speci men Type: BLOOD SPECIMENOrdering Facility: [facility] Address: [address] [place] [address] Performed By: #### 5 7021-8 ####[facility] [id number] [place] [address] [place] Erythrocyte distribution width (RBC) [Ratio] 22.6 % High 11.5-15.0 [facility] Comment on above: Order Comment: Speci men Type: BLOOD SPECIMENOrdering Facility: [facility] Address: [address] [place] [address] Performed By: #### 5 7021-8 ####[facility] [id number] [place] [address] [place] Hematocrit (Bld) [Volume fraction] 25.6 % Low 39.0-51.0 [facility] Comment on above: Order Comment: Speci men Type: BLOOD SPECIMENOrdering Facility: [facility] Address: [address] [place] [address] Performed By: #### 5 7021-8 ####[facility] MILLWNCLIA [id number] [place] [address] [place] Hemoglobin (Bld) [Mass/Vol] 8.7 g/dL Low 13.0-17.0 [facility] Comment on above: Order Comment: Speci men Type: BLOOD SPECIMENOrdering Facility: [facility] Address: [address] [place] [address] Performed By: #### 5 7021-8 ####[facility] HOSPITALNCLIA [id number] [place] [address] [place] Immature granulocytes (Bld) [#/Vol] 0.03 10*3/uL Normal <0.10 [facility] Comment on above: Order Comment: Speci men Type: BLOOD SPECIMENOrdering Facility: [facility] Address: [address] [place] [address] Performed By: #### 5 7021-8 ####[facility] HOSPITALNCLIA [id number] [place] [address] [place] Immature granulocytes/100 WBC (Bld) 0.5 % Normal [facility] Comment on above: Order Comment: Speci men Type: BLOOD SPECIMENOrdering Facility: [facility] Address: [address] [place] [address] Performed By: #### 5 7021-8 ####[facility] HOSPITALNCLIA [id number] [place] [address] [place] Lymphocytes (Bld) [#/Vol] 1.02 10*3/uL Normal 1.00-4.00 [facility] Comment on above: Order Comment: Speci men Type: BLOOD SPECIMENOrdering Facility: [facility] Address: [address] [place] [address] Performed By: #### 5 7021-8 ####[facility]PITALNCOGD[facility] [id number] [place] [address] [place] Lymphocytes/100 WBC (Bld) 16.3 % Normal [facility] Comment on above: Order Comment: Speci men Type: BLOOD SPECIMENOrdering Facility: [facility] Address: [address] [place] [address] Performed By: #### 5 7021-8 ####[facility]ITALMALENA [id number] [place] [address] [place] MCH (RBC) [Entitic mass] 37.5 pg High 26.0-34.0 [facility] Comment on above: Order Comment: Speci men Type: BLOOD SPECIMENOrdering Facility: [facility] Address: [address] [place] [address] Performed By: #### 5 7021-8 ####[facility] HOSPITALNCRADHA [id number] [place] [address] [place] MCHC (RBC) [Mass/Vol] 34.0 g/dL Normal 30.5-36.0 [facility] Comment on above: Order Comment: Speci men Type: BLOOD SPECIMENOrdering Facility: [facility] Address: [address] [place] [address] Performed By: #### 5 7021-8 ####[facility] HOSPITALNCRADHA [id number] [place] [address] [place] MCV (RBC) [Entitic vol] 110.3 fL High 80.0-100.0 [facility] Comment on above: Order Comment: Speci men Type: BLOOD SPECIMENOrdering Facility: [facility] Address: [address] [place] [address] Performed By: #### 5 7021-8 ####[facility] HOSPITALNCLI [id number] [place] [address] [place] Monocytes (Bld) [#/Vol] 0.93 10*3/uL High <0.87 [facility] Comment on above: Order Comment: Speci men Type: BLOOD SPECIMENOrdering Facility: [facility] Address: [address] [place] [address] Performed By: #### 5 7021-8 ####[facility] [id number] [place] [address] [place] Monocytes/100 WBC (Bld) 14.9 % Normal [facility] Comment on above: Order Comment: Speci men Type: BLOOD SPECIMENOrdering Facility: [facility] Address: [address] [place] [address] Performed By: #### 5 7021-8 ####[facility] [id number] [place] [address] [place] Neutrophils (Bld) [#/Vol] 4.10 10*3/uL Normal 1.45-7.50 [facility] Comment on above: Order Comment: Speci men Type: BLOOD SPECIMENOrdering Facility: [facility] Address: [address] [place] [address] Performed By: #### 5 7021-8 ####[facility] [id number] [place] [address] [place] Neutrophils/100 WBC (Bld) 65.7 % Normal [facility] Comment on above: Order Comment: Speci men Type: BLOOD SPECIMENOrdering Facility: [facility] Address: [address] [place] [address] Performed By: #### 5 7021-8 ####[facility] [id number] [place] [address] [place] Nucleated RBC (Bld) [#/Vol] 10*3/uL Normal <0.01 [facility] Comment on above: Order Comment: Speci men Type: BLOOD SPECIMENOrdering Facility: [facility] Address: [address] [place] [address] Performed By: #### 5 7021-8 ####[facility] RUBENNCLIA [id number] [place] [address] [place] Nucleated RBC/100 WBC (Bld) [Ratio] 0.0 /100 WBC Normal [facility] Comment on above: Order Comment: Speci men Type: BLOOD SPECIMENOrdering Facility: [facility] Address: [address] [place] [address] Performed By: #### 5 7021-8 ####[facility] HOSPITALNCLIA [id number] [place] [address] [place] Platelet mean volume (Bld) [Entitic vol] 11.6 fL Normal 9.0-12.7 [facility] Comment on above: Order Comment: Speci men Type: BLOOD SPECIMENOrdering Facility: [facility] Address: [address] [place] [address] Performed By: #### 5 7021-8 ####[facility] HOSPITALNCLIA [id number] [place] [address] [place] Platelets (Bld) [#/Vol] 227 10*3/uL Normal 150-400 [facility] Comment on above: Order Comment: Speci men Type: BLOOD SPECIMENOrdering Facility: [facility] Address: [address] [place] [address] Performed By: #### 5 7021-8 ####[facility] HOSPITALNCLIA [id number] [place] [address] [place] RBC (Bld) [#/Vol] 2.32 10*6/uL Low 4.20-6.00 [facility] Comment on above: Order Comment: Speci men Type: BLOOD SPECIMENOrdering Facility: [facility] Address: [address] [place] [address] Performed By: #### 5 7021-8 ####[facility] HOSPITALNCLIA [id number] [place] [address] [place] WBC (Bld) [#/Vol] 6.24 10*3/uL Normal 3.70-11.00 [facility] Comment on above: Order Comment: Speci men Type: BLOOD SPECIMENOrdering Facility: [facility] Address: [address] [place] [address] Performed By: #### 5 7021-8 ####[facility] [id number] [place] [address] [place] CBC W Auto Differential pane l (Bld)on 02-17-2025 Basophils (Bld) [#/Vol] 0.04 10*3/uL Normal <0.11 [facility] Comment on above: Order Comment: Speci men Type: BLOOD SPECIMENOrdering Facility: [facility] Address: [address] [place] [address] Performed By: #### 5 7021-8 ####[facility] [id number] [place] [address] [place] Basophils/100 WBC (Bld) 0.8 % Normal [facility] Comment on above: Order Comment: Speci men Type: BLOOD SPECIMENOrdering Facility: [facility] Address: [address] [place] [address] Performed By: #### 5 7021-8 ####[facility]ITALMALENA [id number] [place] [address] [place] Differential cell count method Nom (Bld) Auto Normal [facility] Comment on above: Order Comment: Speci men Type: BLOOD SPECIMENOrdering Facility: [facility] Address: [address] [place] [address] Performed By: #### 5 7021-8 ####[facility] [id number] [place] [address] [place] Eosinophils (Bld) [#/Vol] 0.12 10*3/uL Normal <0.46 [facility] Comment on above: Order Comment: Speci men Type: BLOOD SPECIMENOrdering Facility: [facility] Address: [address] [place] [address] Performed By: #### 5 7021-8 ####[facility] [id number] [place] [address] [place] Eosinophils/100 WBC (Bld) 2.3 % Normal [facility] Comment on above: Order Comment: Speci men Type: BLOOD SPECIMENOrdering Facility: [facility] Address: [address] [place] [address] Performed By: #### 5 7021-8 ####[facility] [id number] [place] [address] [place] Erythrocyte distribution width (RBC) [Ratio] 22.2 % High 11.5-15.0 [facility] Comment on above: Order Comment: Speci men Type: BLOOD SPECIMENOrdering Facility: [facility] Address: [address] [place] [address] Performed By: #### 5 7021-8 ####[facility] [id number] [place] [address] [place] Hematocrit (Bld) [Volume fraction] 27.2 % Low 39.0-51.0 [facility] Comment on above: Order Comment: Speci men Type: BLOOD SPECIMENOrdering Facility: [facility] Address: [address] [place] [address] Performed By: #### 5 7021-8 ####[facility] [id number] [place] [address] [place] Hemoglobin (Bld) [Mass/Vol] 9.0 g/dL Low 13.0-17.0 [facility] Comment on above: Order Comment: Speci men Type: BLOOD SPECIMENOrdering Facility: [facility] Address: [address] [place] [address] Performed By: #### 5 7021-8 ####[facility] MILLIVANAWNCLIA [id number] [place] [address] [place] Immature granulocytes (Bld) [#/Vol] 10*3/uL Normal <0.10 [facility] Comment on above: Order Comment: Speci men Type: BLOOD SPECIMENOrdering Facility: [facility] Address: [address] [place] [address] Performed By: #### 5 7021-8 ####[facility] HOSPITALWNCLIA [id number] [place] [address] [place] Immature granulocytes/100 WBC (Bld) 0.2 % Normal [facility] Comment on above: Order Comment: Speci men Type: BLOOD SPECIMENOrdering Facility: [facility] Address: [address] [place] [address] Performed By: #### 5 7021-8 ####[facility] HOSPITALNCLIA [id number] [place] [address] [place] Lymphocytes (Bld) [#/Vol] 0.89 10*3/uL Low 1.00-4.00 [facility] Comment on above: Order Comment: Speci men Type: BLOOD SPECIMENOrdering Facility: [facility] Address: [address] [place] [address] Performed By: #### 5 7021-8 ####[facility] MILLTOWNCLIA [id number] [place] [address] [place] Lymphocytes/100 WBC (Bld) 17.1 % Normal [facility] Comment on above: Order Comment: Speci men Type: BLOOD SPECIMENOrdering Facility: [facility] Address: [address] [place] [address] Performed By: #### 5 7021-8 ####[facility] [id number] [place] [address] [place] MCH (RBC) [Entitic mass] 36.6 pg High 26.0-34.0 [facility] Comment on above: Order Comment: Speci men Type: BLOOD SPECIMENOrdering Facility: [facility] Address: [address] [place] [address] Performed By: #### 5 7021-8 ####[facility] [id number] [place] [address] [place] MCHC (RBC) [Mass/Vol] 33.1 g/dL Normal 30.5-36.0 [facility] Comment on above: Order Comment: Speci men Type: BLOOD SPECIMENOrdering Facility: [facility] Address: [address] [place] [address] Performed By: #### 5 7021-8 ####[facility] [id number] [place] [address] [place] MCV (RBC) [Entitic vol] 110.6 fL High 80.0-100.0 [facility] Comment on above: Order Comment: Speci men Type: BLOOD SPECIMENOrdering Facility: [facility] Address: [address] [place] [address] Performed By: #### 5 7021-8 ####[facility] [id number] [place] [address] [place] Monocytes (Bld) [#/Vol] 0.76 10*3/uL Normal <0.87 [facility] Comment on above: Order Comment: Speci men Type: BLOOD SPECIMENOrdering Facility: [facility] Address: [address] [place] [address] Performed By: #### 5 7021-8 ####[facility] [id number] [place] [address] [place] Monocytes/100 WBC (Bld) 14.6 % Normal [facility] Comment on above: Order Comment: Speci men Type: BLOOD SPECIMENOrdering Facility: [facility] Address: [address] [place] [address] Performed By: #### 5 7021-8 ####[facility] [id number] [place] [address] [place] Neutrophils (Bld) [#/Vol] 3.39 10*3/uL Normal 1.45-7.50 [facility] Comment on above: Order Comment: Speci men Type: BLOOD SPECIMENOrdering Facility: [facility] Address: [address] [place] [address] Performed By: #### 5 7021-8 ####[facility] [id number] [place] [address] [place] Neutrophils/100 WBC (Bld) 65.0 % Normal [facility] Comment on above: Order Comment: Speci men Type: BLOOD SPECIMENOrdering Facility: [facility] Address: [address] [place] [address] Performed By: #### 5 7021-8 ####[facility] [id number] [place] [address] [place] Nucleated RBC (Bld) [#/Vol] 0.02 10*3/uL High <0.01 [facility] Comment on above: Order Comment: Speci men Type: BLOOD SPECIMENOrdering Facility: [facility] Address: [address] [place] [address] Performed By: #### 5 7021-8 ####[facility] [id number] [place] [address] [place] Nucleated RBC/100 WBC (Bld) [Ratio] 0.4 /100 WBC Normal [facility] Comment on above: Order Comment: Speci men Type: BLOOD SPECIMENOrdering Facility: [facility] Address: [address] [place] [address] Performed By: #### 5 7021-8 ####[facility] CENTERJACQUELYN MEMBRENO [id number] [place] [address] [place] Platelet mean volume (Bld) [Entitic vol] 10.9 fL Normal 9.0-12.7 [facility] Comment on above: Order Comment: Speci men Type: BLOOD SPECIMENOrdering Facility: [facility] Address: [address] [place] [address] Performed By: #### 5 7021-8 ####[facility] HOSPITALMALENA [id number] [place] [address] [place] Platelets (Bld) [#/Vol] 226 10*3/uL Normal 150-400 [facility] Comment on above: Order Comment: Speci men Type: BLOOD SPECIMENOrdering Facility: [facility] Address: [address] [place] [address] Performed By: #### 5 7021-8 ####[facility] HOSPITALMALENA [id number] [place] [address] [place] RBC (Bld) [#/Vol] 2.46 10*6/uL Low 4.20-6.00 [facility] Comment on above: Order Comment: Speci men Type: BLOOD SPECIMENOrdering Facility: [facility] Address: [address] [place] [address] Performed By: #### 5 7021-8 ####[facility] CENTERLIA [id number] [place] [address] [place] WBC (Bld) [#/Vol] 5.21 10*3/uL Normal 3.70-11.00 [facility] Comment on above: Order Comment: Speci men Type: BLOOD SPECIMENOrdering Facility: [facility] Address: [address] [place] [address] Performed By: #### 5 7021-8 ####[facility] MILLWNCLIA [id number] [place] [address] [place] CBC W Auto Differential pane l (Bld)on 02-03-2025 Basophils (Bld) [#/Vol] 0.04 10*3/uL Normal <0.11 [facility] Comment on above: Order Comment: Speci men Type: BLOOD SPECIMENOrdering Facility: [facility] Address: [address] [place] [address] Performed By: #### 5 7021-8 ####[facility] CENTERLIA [id number] [place] [address] [place] Basophils/100 WBC (Bld) 0.8 % Normal [facility] Comment on above: Order Comment: Speci men Type: BLOOD SPECIMENOrdering Facility: [facility] Address: [address] [place] [address] Performed By: #### 5 7021-8 ####[facility] CENTERLIA [id number] [place] [address] [place] Differential cell count method Nom (Bld) Auto Normal [facility] Comment on above: Order Comment: Speci men Type: BLOOD SPECIMENOrdering Facility: [facility] Address: [address] [place] [address] Performed By: #### 5 7021-8 ####[facility] CENTERLIA [id number] [place] [address] [place] Eosinophils (Bld) [#/Vol] 0.11 10*3/uL Normal <0.46 [facility] Comment on above: Order Comment: Speci men Type: BLOOD SPECIMENOrdering Facility: [facility] Address: [address] [place] [address] Performed By: #### 5 7021-8 ####[facility] CENTERLIA [id number] [place] [address] [place] Eosinophils/100 WBC (Bld) 2.1 % Normal [facility] Comment on above: Order Comment: Speci men Type: BLOOD SPECIMENOrdering Facility: [facility] Address: [address] [place] [address] Performed By: #### 5 7021-8 ####[facility]PITALNCOGD[facility] [id number] [place] [address] [place] Erythrocyte distribution width (RBC) [Ratio] 23.0 % High 11.5-15.0 [facility] Comment on above: Order Comment: Speci men Type: BLOOD SPECIMENOrdering Facility: [facility] Address: [address] [place] [address] Performed By: #### 5 7021-8 ####[facility]PITALNCOGD[facility] [id number] [place] [address] [place] Hematocrit (Bld) [Volume fraction] 27.7 % Low 39.0-51.0 [facility] Comment on above: Order Comment: Speci men Type: BLOOD SPECIMENOrdering Facility: [facility] Address: [address] [place] [address] Performed By: #### 5 7021-8 ####[facility] HOSPITALNCLIA [id number] [place] [address] [place] Hemoglobin (Bld) [Mass/Vol] 9.1 g/dL Low 13.0-17.0 [facility] Comment on above: Order Comment: Speci men Type: BLOOD SPECIMENOrdering Facility: [facility] Address: [address] [place] [address] Performed By: #### 5 7021-8 ####[facility] HOSPITALNCLIA [id number] [place] [address] [place] Immature granulocytes (Bld) [#/Vol] 10*3/uL Normal <0.10 [facility] Comment on above: Order Comment: Speci men Type: BLOOD SPECIMENOrdering Facility: [facility] Address: [address] [place] [address] Performed By: #### 5 7021-8 ####[facility] JONHJEAN [id number] [place] [address] [place] Immature granulocytes/100 WBC (Bld) 0.2 % Normal [facility] Comment on above: Order Comment: Speci men Type: BLOOD SPECIMENOrdering Facility: [facility] Address: [address] [place] [address] Performed By: #### 5 7021-8 ####[facility] [id number] [place] [address] [place] Lymphocytes (Bld) [#/Vol] 1.16 10*3/uL Normal 1.00-4.00 [facility] Comment on above: Order Comment: Speci men Type: BLOOD SPECIMENOrdering Facility: [facility] Address: [address] [place] [address] Performed By: #### 5 7021-8 ####[facility] [id number] [place] [address] [place] Lymphocytes/100 WBC (Bld) 22.2 % Normal [facility] Comment on above: Order Comment: Speci men Type: BLOOD SPECIMENOrdering Facility: [facility] Address: [address] [place] [address] Performed By: #### 5 7021-8 ####[facility]ENTERLIA [id number] [place] [address] [place] MCH (RBC) [Entitic mass] 36.1 pg High 26.0-34.0 [facility] Comment on above: Order Comment: Speci men Type: BLOOD SPECIMENOrdering Facility: [facility] Address: [address] [place] [address] Performed By: #### 5 7021-8 ####[facility] HOSPITALNCLIA [id number] [place] [address] [place] MCHC (RBC) [Mass/Vol] 32.9 g/dL Normal 30.5-36.0 [facility] Comment on above: Order Comment: Speci men Type: BLOOD SPECIMENOrdering Facility: [facility] Address: [address] [place] [address] Performed By: #### 5 7021-8 ####[facility] [id number] [place] [address] [place] MCV (RBC) [Entitic vol] 109.9 fL High 80.0-100.0 [facility] Comment on above: Order Comment: Speci men Type: BLOOD SPECIMENOrdering Facility: [facility] Address: [address] [place] [address] Performed By: #### 5 7021-8 ####[facility] [id number] [place] [address] [place] Monocytes (Bld) [#/Vol] 0.71 10*3/uL Normal <0.87 [facility] Comment on above: Order Comment: Speci men Type: BLOOD SPECIMENOrdering Facility: [facility] Address: [address] [place] [address] Performed By: #### 5 7021-8 ####[facility] [id number] [place] [address] [place] Monocytes/100 WBC (Bld) 13.6 % Normal [facility] Comment on above: Order Comment: Speci men Type: BLOOD SPECIMENOrdering Facility: [facility] Address: [address] [place] [address] Performed By: #### 5 7021-8 ####[facility] HOSPITALNCLIA [id number] [place] [address] [place] Neutrophils (Bld) [#/Vol] 3.19 10*3/uL Normal 1.45-7.50 [facility] Comment on above: Order Comment: Speci men Type: BLOOD SPECIMENOrdering Facility: [facility] Address: [address] [place] [address] Performed By: #### 5 7021-8 ####[facility] [id number] [place] [address] [place] Neutrophils/100 WBC (Bld) 61.1 % Normal [facility] Comment on above: Order Comment: Speci men Type: BLOOD SPECIMENOrdering Facility: [facility] Address: [address] [place] [address] Performed By: #### 5 7021-8 ####[facility] [id number] [place] [address] [place] Nucleated RBC (Bld) [#/Vol] 0.03 10*3/uL High <0.01 [facility] Comment on above: Order Comment: Speci men Type: BLOOD SPECIMENOrdering Facility: [facility] Address: [address] [place] [address] Performed By: #### 5 7021-8 ####[facility] [id number] [place] [address] [place] Nucleated RBC/100 WBC (Bld) [Ratio] 0.6 /100 WBC Normal [facility] Comment on above: Order Comment: Speci men Type: BLOOD SPECIMENOrdering Facility: [facility] Address: [address] [place] [address] Performed By: #### 5 7021-8 ####[facility]ITALNCOGD[facility] [id number] [place] [address] [place] Platelet mean volume (Bld) [Entitic vol] 10.4 fL Normal 9.0-12.7 [facility] Comment on above: Order Comment: Speci men Type: BLOOD SPECIMENOrdering Facility: [facility] Address: [address] [place] [address] Performed By: #### 5 7021-8 ####[facility] RUBENNCCONSTANCEA [id number] [place] [address] [place] Platelets (Bld) [#/Vol] 252 10*3/uL Normal 150-400 [facility] Comment on above: Order Comment: Speci men Type: BLOOD SPECIMENOrdering Facility: [facility] Address: [address] [place] [address] Performed By: #### 5 7021-8 ####[facility] HOSPITALNCLIA [id number] [place] [address] [place] RBC (Bld) [#/Vol] 2.52 10*6/uL Low 4.20-6.00 [facility] Comment on above: Order Comment: Speci men Type: BLOOD SPECIMENOrdering Facility: [facility] Address: [address] [place] [address] Performed By: #### 5 7021-8 ####[facility] HOSPITALROBERTCONSTANCEA [id number] [place] [address] [place] WBC (Bld) [#/Vol] 5.22 10*3/uL Normal 3.70-11.00 [facility] Comment on above: Order Comment: Speci men Type: BLOOD SPECIMENOrdering Facility: [facility] Address: [address] [place] [address] Performed By: #### 5 7021-8 ####[facility] HOSPITALNCLIA [id number] [place] [address] [place] CNOVon 01-31-2025 CNOV Normal [facility] CBC W Auto Differential pane l (Bld)on 01-20-2025 Basophils (Bld) [#/Vol] 0.05 10*3/uL Normal <0.11 [facility] Comment on above: Order Comment: Speci men Type: BLOOD SPECIMENOrdering Facility: [facility] Address: [address] [place] [address] Performed By: #### 5 7021-8 ####[facility] JONHCHARLOTTENCLIA [id number] [place] [address] [place] Basophils/100 WBC (Bld) 0.9 % Normal [facility] Comment on above: Order Comment: Speci men Type: BLOOD SPECIMENOrdering Facility: [facility] Address: [address] [place] [address] Performed By: #### 5 7021-8 ####[facility] CENTERLIA [id number] [place] [address] [place] Differential cell count method Nom (Bld) Auto Normal [facility] Comment on above: Order Comment: Speci men Type: BLOOD SPECIMENOrdering Facility: [facility] Address: [address] [place] [address] Performed By: #### 5 7021-8 ####[facility] [id number] [place] [address] [place] Eosinophils (Bld) [#/Vol] 0.12 10*3/uL Normal <0.46 [facility] Comment on above: Order Comment: Speci men Type: BLOOD SPECIMENOrdering Facility: [facility] Address: [address] [place] [address] Performed By: #### 5 7021-8 ####[facility] MILLWNCLIA [id number] [place] [address] [place] Eosinophils/100 WBC (Bld) 2.2 % Normal [facility] Comment on above: Order Comment: Speci men Type: BLOOD SPECIMENOrdering Facility: [facility] Address: [address] [place] [address] Performed By: #### 5 7021-8 ####[facility] JONHCHARLOTTEROBERTLIA [id number] [place] [address] [place] Erythrocyte distribution width (RBC) [Ratio] 21.7 % High 11.5-15.0 [facility] Comment on above: Order Comment: Speci men Type: BLOOD SPECIMENOrdering Facility: [facility] Address: [address] [place] [address] Performed By: #### 5 7021-8 ####[facility] [id number] [place] [address] [place] Hematocrit (Bld) [Volume fraction] 28.9 % Low 39.0-51.0 [facility] Comment on above: Order Comment: Speci men Type: BLOOD SPECIMENOrdering Facility: [facility] Address: [address] [place] [address] Performed By: #### 5 7021-8 ####[facility] [id number] [place] [address] [place] Hemoglobin (Bld) [Mass/Vol] 9.6 g/dL Low 13.0-17.0 [facility] Comment on above: Order Comment: Speci men Type: BLOOD SPECIMENOrdering Facility: [facility] Address: [address] [place] [address] Performed By: #### 5 7021-8 ####[facility] [id number] [place] [address] [place] Immature granulocytes (Bld) [#/Vol] 10*3/uL Normal <0.10 [facility] Comment on above: Order Comment: Speci men Type: BLOOD SPECIMENOrdering Facility: [facility] Address: [address] [place] [address] Performed By: #### 5 7021-8 ####[facility]ENTERLI [id number] [place] [address] [place] Immature granulocytes/100 WBC (Bld) 0.4 % Normal [facility] Comment on above: Order Comment: Speci men Type: BLOOD SPECIMENOrdering Facility: [facility] Address: [address] [place] [address] Performed By: #### 5 7021-8 ####[facility]PITALNCOGD[facility] [id number] [place] [address] [place] Lymphocytes (Bld) [#/Vol] 0.85 10*3/uL Low 1.00-4.00 [facility] Comment on above: Order Comment: Speci men Type: BLOOD SPECIMENOrdering Facility: [facility] Address: [address] [place] [address] Performed By: #### 5 7021-8 ####[facility] [id number] [place] [address] [place] Lymphocytes/100 WBC (Bld) 15.9 % Normal [facility] Comment on above: Order Comment: Speci men Type: BLOOD SPECIMENOrdering Facility: [facility] Address: [address] [place] [address] Performed By: #### 5 7021-8 ####[facility] [id number] [place] [address] [place] MCH (RBC) [Entitic mass] 36.5 pg High 26.0-34.0 [facility] Comment on above: Order Comment: Speci men Type: BLOOD SPECIMENOrdering Facility: [facility] Address: [address] [place] [address] Performed By: #### 5 7021-8 ####[facility] [id number] [place] [address] [place] MCHC (RBC) [Mass/Vol] 33.2 g/dL Normal 30.5-36.0 [facility] Comment on above: Order Comment: Speci men Type: BLOOD SPECIMENOrdering Facility: [facility] Address: [address] [place] [address] Performed By: #### 5 7021-8 ####[facility] HOSPITALMALENA [id number] [place] [address] [place] MCV (RBC) [Entitic vol] 109.9 fL High 80.0-100.0 [facility] Comment on above: Order Comment: Speci men Type: BLOOD SPECIMENOrdering Facility: [facility] Address: [address] [place] [address] Performed By: #### 5 7021-8 ####[facility]ITALNCOGD[facility] [id number] [place] [address] [place] Monocytes (Bld) [#/Vol] 0.78 10*3/uL Normal <0.87 [facility] Comment on above: Order Comment: Speci men Type: BLOOD SPECIMENOrdering Facility: [facility] Address: [address] [place] [address] Performed By: #### 5 7021-8 ####[facility] [id number] [place] [address] [place] Monocytes/100 WBC (Bld) 14.6 % Normal [facility] Comment on above: Order Comment: Speci men Type: BLOOD SPECIMENOrdering Facility: [facility] Address: [address] [place] [address] Performed By: #### 5 7021-8 ####[facility] HOSPITALNCLIA [id number] [place] [address] [place] Neutrophils (Bld) [#/Vol] 3.54 10*3/uL Normal 1.45-7.50 [facility] Comment on above: Order Comment: Speci men Type: BLOOD SPECIMENOrdering Facility: [facility] Address: [address] [place] [address] Performed By: #### 5 7021-8 ####[facility] JONHWROBERTLIA [id number] [place] [address] [place] Neutrophils/100 WBC (Bld) 66.0 % Normal [facility] Comment on above: Order Comment: Speci men Type: BLOOD SPECIMENOrdering Facility: [facility] Address: [address] [place] [address] Performed By: #### 5 7021-8 ####[facility] HOSPITALKOSTA [id number] [place] [address] [place] Nucleated RBC (Bld) [#/Vol] 10*3/uL Normal <0.01 [facility] Comment on above: Order Comment: Speci men Type: BLOOD SPECIMENOrdering Facility: [facility] Address: [address] [place] [address] Performed By: #### 5 7021-8 ####[facility] [id number] [place] [address] [place] Nucleated RBC/100 WBC (Bld) [Ratio] 0.0 /100 WBC Normal [facility] Comment on above: Order Comment: Speci men Type: BLOOD SPECIMENOrdering Facility: [facility] Address: [address] [place] [address] Performed By: #### 5 7021-8 ####[facility] CENTERRADHA [id number] [place] [address] [place] Platelet mean volume (Bld) [Entitic vol] 11.9 fL Normal 9.0-12.7 [facility] Comment on above: Order Comment: Speci men Type: BLOOD SPECIMENOrdering Facility: [facility] Address: [address] [place] [address] Performed By: #### 5 7021-8 ####[facility] CENTERLIA [id number] [place] [address] [place] Platelets (Bld) [#/Vol] 266 10*3/uL Normal 150-400 [facility] Comment on above: Order Comment: Speci men Type: BLOOD SPECIMENOrdering Facility: [facility] Address: [address] [place] [address] Performed By: #### 5 7021-8 ####[facility] HOSPITALWNCLIA [id number] [place] [address] [place] RBC (Bld) [#/Vol] 2.63 10*6/uL Low 4.20-6.00 [facility] Comment on above: Order Comment: Speci men Type: BLOOD SPECIMENOrdering Facility: [facility] Address: [address] [place] [address] Performed By: #### 5 7021-8 ####[facility] HOSPITALNCA [id number] [place] [address] [place] WBC (Bld) [#/Vol] 5.36 10*3/uL Normal 3.70-11.00 [facility] Comment on above: Order Comment: Speci men Type: BLOOD SPECIMENOrdering Facility: [facility] Address: [address] [place] [address] Performed By: #### 5 7021-8 ####[facility] HOSPITALNCLIA [id number] [place] [address] [place] Comprehensive metabolic 2000 panelon 01-20-2025 Albumin [Mass/Vol] 4.2 g/dL Normal 3.9-4.9 [facility] Comment on above: Order Comment: Speci men Type: BLOOD SPECIMENOrdering Facility: [facility] Address: [address] [place] [address] Performed By: #### 2 4323-8 ####[facility] HOSPITALNCLIA [id number] [place] [address] [place] ALP [Catalytic activity/Vol] 74 U/L Normal 38-113 [facility] Comment on above: Order Comment: Speci men Type: BLOOD SPECIMENOrdering Facility: [facility] Address: [address] [place] [address] Performed By: #### 2 4323-8 ####[facility] JONHTOWNCLIA [id number] [place] [address] [place] ALT [Catalytic activity/Vol] 16 U/L Normal 10-54 [facility] Comment on above: Order Comment: Speci men Type: BLOOD SPECIMENOrdering Facility: [facility] Address: [address] [place] [address] Performed By: #### 2 4323-8 ####[facility] HOSPITALWNCLIA [id number] [place] [address] [place] Anion gap [Moles/Vol] 10 mmol/L Normal 8-15 [facility] Comment on above: Order Comment: Speci men Type: BLOOD SPECIMENOrdering Facility: [facility] Address: [address] [place] [address] Performed By: #### 2 4323-8 ####[facility] HOSPITALWNCLIA [id number] [place] [address] [place] AST [Catalytic activity/Vol] 24 U/L Normal 14-40 [facility] Comment on above: Order Comment: Speci men Type: BLOOD SPECIMENOrdering Facility: [facility] Address: [address] [place] [address] Performed By: #### 2 4323-8 ####[facility] HOSPITALWNCLIA [id number] [place] [address] [place] Bilirubin [Mass/Vol] 1.3 mg/dL Normal 0.2-1.3 [facility] Comment on above: Order Comment: Speci men Type: BLOOD SPECIMENOrdering Facility: [facility] Address: [address] [place] [address] Performed By: #### 2 4323-8 ####[facility] MILLTOWNCLIA [id number] [place] [address] [place] Calcium [Mass/Vol] 9.0 mg/dL Normal 8.5-10.2 [facility] Comment on above: Order Comment: Speci men Type: BLOOD SPECIMENOrdering Facility: [facility] Address: [address] [place] [address] Performed By: #### 2 4323-8 ####[facility] MILLTOWNCLIA [id number] [place] [address] [place] Chloride [Moles/Vol] 100 mmol/L Normal 98-107 [facility] Comment on above: Order Comment: Speci men Type: BLOOD SPECIMENOrdering Facility: [facility] Address: [address] [place] [address] Performed By: #### 2 4323-8 ####[facility] MILLWNCLIA [id number] [place] [address] [place] CO2 [Moles/Vol] 29 mmol/L Normal 22-30 [facility] Comment on above: Order Comment: Speci men Type: BLOOD SPECIMENOrdering Facility: [facility] Address: [address] [place] [address] Performed By: #### 2 4323-8 ####[facility] MILLTOWNCLIA [id number] [place] [address] [place] Creatinine [Mass/Vol] 1.10 mg/dL Normal 0.73-1.22 [facility] Comment on above: Order Comment: Speci men Type: BLOOD SPECIMENOrdering Facility: [facility] Address: [address] [place] [address] Performed By: #### 2 4323-8 ####[facility] MILLTOWNCLIA [id number] [place] [address] [place] Creatinine and Glomerular filtration rate.predicted panel (S/P/Bld) 64 mL/min/1.73m??? Normal >=60 [facility] Comment on above: Order Comment: Elfego gilbert Type: BLOOD SPECIMENOrdering Facility: [facility] Address: [address] [place] [address] Result Comment: Concepción mated Glomerular Filtration Rate [...] actual GFR. Performed By: #### 2 4323-8 ####[facility] [id number] [place] [address] [place] Glucose [Mass/Vol] 92 mg/dL Normal 74-99 [facility] Comment on above: Order Comment: Elfego gilbert Type: BLOOD SPECIMENOrdering Facility: [facility] Address: [address] [place] [address] Result Comment: The [place] [employer] (ADA) provides guidance for cutoff [...] Standards of Medical Care in Diabetes 2016, [place] [employer]. Diabetes Care. 2016.39(Suppl 1). Performed By: #### 2 4323-8 ####[facility]PITALNCOGDEN [facility] [id number] [place] [address] [place] Potassium [Moles/Vol] 4.4 mmol/L Normal 3.7-5.1 [facility] Comment on above: Order Comment: Speci men Type: BLOOD SPECIMENOrdering Facility: [facility] Address: [address] [place] [address] Performed By: #### 2 4323-8 ####[facility] JONHWNCLIA [id number] [place] [address] [place] Protein [Mass/Vol] 6.4 g/dL Normal 6.3-8.0 [facility] Comment on above: Order Comment: Speci men Type: BLOOD SPECIMENOrdering Facility: [facility] Address: [address] [place] [address] Performed By: #### 2 4323-8 ####[facility] HOSPITALNCLIA [id number] [place] [address] [place] Sodium [Moles/Vol] 139 mmol/L Normal 136-144 [facility] Comment on above: Order Comment: Speci men Type: BLOOD SPECIMENOrdering Facility: [facility] Address: [address] [place] [address] Performed By: #### 2 4323-8 ####[facility] HOSPITALNCLIA [id number] [place] [address] [place] Urea nitrogen [Mass/Vol] 33 mg/dL High 9-24 [facility] Comment on above: Order Comment: Speci men Type: BLOOD SPECIMENOrdering Facility: [facility] Address: [address] [place] [address] Performed By: #### 2 4323-8 ####[facility] HOSPITALNCLIA [id number] [place] [address] [place] Lipid 1996 panelon 5 Cholesterol [Mass/Vol] 80 mg/dL Normal <200 [facility] Comment on above: Order Comment: Speci men Type: BLOOD SPECIMENOrdering Facility: [facility] Address: [address] [place] [address] Result Comment: <200 mg/dL, Desirable 200-239 mg/dL, Borderline high>239 mg/dL, High Performed By: #### 3 016-3 ####[facility] LABCLIA [id number] [facility]ALK [address], [address] [place]#### [address]-9 ####[facility] LABCLIA [id number] [facility]ITALK [address], [id number] Cholesterol in HDL [Mass/Vol] 50 mg/dL Normal >39 [facility] Comment on above: Order Comment: Speci men Type: BLOOD SPECIMENOrdering Facility: [facility] Address: [address] [place] [address] Result Comment: 40-5 9 mg/dL, Acceptable>59 mg/dL, High: Negative risk factor for coronary heart disease<40 mg/dL, Low: Positive risk factor for coronary heart disease Performed By: #### 3 016-3 ####[facility] LABCLIA [id number] [address] [place]#### [address]-4 ####[facility] LABCLIA [id number] [address], [address] [id number] [address] [place] Cholesterol in LDL [Mass/Vol] 22 mg/dL Normal <100 [facility] Comment on above: Order Comment: Speci men Type: BLOOD SPECIMENOrdering Facility: [facility] Address: [address] [place] [address] Result Comment: <100 mg/dL, Optimal 100-129 mg/dL, Near optimal/above optimal 130-159 mg/dL, Borderline high 160-189 mg/dL, High>189 mg/dL, Very highSecondary prevention optimal LDL Cholesterol levels are recommended to be < 70 mg/dL Performed By: #### 3 016-3 ####[facility] LABCLIA [id number] [address], [address] [place]#### 17234-2 ####[facility] LABCLIA [id number] [address], [address] [id number] [place] [address] Cholesterol in LDL/Cholesterol in HDL [Mass ratio] 0.44 {ratio} Normal <2.54 [facility] Comment on above: Order Comment: Speci men Type: BLOOD SPECIMENOrdering Facility: [facility] Address: [address] [place] [address] Result Comment: Refe floyd:1. National Cholesterol Education Program ATP III Guideline At-A-Glance Quick Desk Reference: National Heart, Lung, and Blood [place]. National Institutes of Health. 2001: NIH Publication No. 01-3305.2. An International Atherosclerosis Society position paper: global recommendations for the management of dyslipidemia: executive summary, Atherosclerosis. 2014: 232(2):410-413. Performed By: #### 3 016-3 ####[facility] LABCLIA [id number] [address]#### [address]-7 ####[facility] LABCLIA [id number] [address], [address] [id number] [place] [address] [place] Cholesterol in VLDL [Mass/Vol] 8 mg/dL Normal <30 [facility] Comment on above: Order Comment: Speci men Type: BLOOD SPECIMENOrdering Facility: [facility] Address: [address] [place] [address] Performed By: #### 3 016-3 ####[facility] LABCLIA [id number] [address], [facility] [place]#### 40107-1 ####[facility] LABCLIA [id number] [address], [place] [address] [place] [facility] [id number] [place] [address] [place] Cholesterol non HDL [Mass/Vol] 30 mg/dL Normal <130 [facility] Comment on above: Order Comment: Speci men Type: BLOOD SPECIMENOrdering Facility: [facility] Address: [address] [place] [address] Result Comment: <130 mg/dL, Optimal 130-159 mg/dL, Near optimal/above optimal 160-189 mg/dL, Borderline high 190-219 mg/dL, High>219 mg/dL, Very highSecondary prevention optimal non HDL Cholesterol levels are recommended to be <100 mg/dL Performed By: #### 3 016-3 ####[facility] LABCLIA [id number] [address], [place] [address] [place]#### 06840-4 ####[facility] LABCLIA [id number] [address] STATES OF [facility] [id number] [place] [address] [place] Cholesterol.total/Chol esterol in HDL [Mass ratio] 1.60 {ratio} Normal <5.10 [facility] Comment on above: Order Comment: Speci men Type: BLOOD SPECIMENOrdering Facility: [facility] Address: [address] [place] [id number] Performed By: #### 3 016-3 ####[facility] LABCLIA [id number] [place] [address] [place]#### 32481-3 ####[facility] LABCLIA [id number] [address] OF [facility] [id number] [place] [address] [place] FASTING TIME 12 hrs Normal [facility] Comment on above: Order Comment: Speci men Type: BLOOD SPECIMENOrdering Facility: [facility] Address: [address] [place] [address] Performed By: #### 3 016-3 ####[facility] LABCLIA [id number] [place] [address] [place]#### 04280-7 ####[facility] LABCLIA [id number] [address] [id number] [place] [address] [place] Triglyceride [Mass/Vol] 38 mg/dL Normal <150 [facility] Comment on above: Order Comment: Speci men Type: BLOOD SPECIMENOrdering Facility: [facility] Address: [address] [place] [address] Result Comment: <150 mg/dL, Normal 150-199 mg/dL, Borderline high 200-499 mg/dL, High>499 mg/dL, Very high Performed By: #### 3 016-3 ####[facility] LABCLIA [id number] [place] [address] [place]#### 70174-5 ####[facility] LABCLIA [id number] [address] STATES OF [facility] [id number] [place] [address] [place] TSH SerPl-aCncon 01-20-2025 TSH Qn 0.605 m[IU]/L Normal 0.270-4.20 0 [facility] Comment on above: Order Comment: Speci men Type: BLOOD SPECIMENOrdering Facility: [facility] Address: [address] [place] [address] Performed By: #### 3 016-3 ####[facility] LABCLIA [id number] [place] [address] [place]#### 42773-2 ####[facility] LABCLIA [id number] [place] [address] [place] [facility] [id number] [place] [address] [place] CBC W Auto Differential pane l (Bld)on 01-06-2025 Basophils (Bld) [#/Vol] 0.04 10*3/uL Normal <0.11 [facility] Comment on above: Order Comment: Speci men Type: BLOOD SPECIMENOrdering Facility: [facility] Address: [address] [place] [address] Performed By: #### 5 7021-8 ####[facility] [id number] [place] [address] [place] Basophils/100 WBC (Bld) 0.8 % Normal [facility] Comment on above: Order Comment: Speci men Type: BLOOD SPECIMENOrdering Facility: [facility] Address: [address] [place] [address] Performed By: #### 5 7021-8 ####[facility]ENTERLIA [id number] [place] [address] [place] Differential cell count method Nom (Bld) Auto Normal [facility] Comment on above: Order Comment: Speci men Type: BLOOD SPECIMENOrdering Facility: [facility] Address: [address] [place] [address] Performed By: #### 5 7021-8 ####[facility]ENTERLIA [id number] [place] [address] [place] Eosinophils (Bld) [#/Vol] 0.13 10*3/uL Normal <0.46 [facility] Comment on above: Order Comment: Speci men Type: BLOOD SPECIMENOrdering Facility: [facility] Address: [address] [place] [address] Performed By: #### 5 7021-8 ####[facility] HOSPITALNCA [id number] [place] [address] [place] Eosinophils/100 WBC (Bld) 2.5 % Normal [facility] Comment on above: Order Comment: Speci men Type: BLOOD SPECIMENOrdering Facility: [facility] Address: [address] [place] [address] Performed By: #### 5 7021-8 ####[facility] [id number] [place] [address] [place] Erythrocyte distribution width (RBC) [Ratio] 21.6 % High 11.5-15.0 [facility] Comment on above: Order Comment: Speci men Type: BLOOD SPECIMENOrdering Facility: [facility] Address: [address] [place] [address] Performed By: #### 5 7021-8 ####[facility] [id number] [place] [address] [place] Hematocrit (Bld) [Volume fraction] 29.4 % Low 39.0-51.0 [facility] Comment on above: Order Comment: Speci men Type: BLOOD SPECIMENOrdering Facility: [facility] Address: [address] [place] [address] Performed By: #### 5 7021-8 ####[facility] [id number] [place] [address] [place] Hemoglobin (Bld) [Mass/Vol] 9.7 g/dL Low 13.0-17.0 [facility] Comment on above: Order Comment: Speci men Type: BLOOD SPECIMENOrdering Facility: [facility] Address: [address] [place] [address] Performed By: #### 5 7021-8 ####[facility] MEENAKSHIWNCLIA [id number] [place] [address] [place] Immature granulocytes (Bld) [#/Vol] 10*3/uL Normal <0.10 [facility] Comment on above: Order Comment: Speci men Type: BLOOD SPECIMENOrdering Facility: [facility] Address: [address] [place] [address] Performed By: #### 5 7021-8 ####[facility] HOSPITALNCLIA [id number] [place] [address] [place] Immature granulocytes/100 WBC (Bld) 0.4 % Normal [facility] Comment on above: Order Comment: Speci men Type: BLOOD SPECIMENOrdering Facility: [facility] Address: [address] [place] [address] Performed By: #### 5 7021-8 ####[facility]ENTERLIA [id number] [place] [address] [place] Lymphocytes (Bld) [#/Vol] 1.00 10*3/uL Normal 1.00-4.00 [facility] Comment on above: Order Comment: Speci men Type: BLOOD SPECIMENOrdering Facility: [facility] Address: [address] [place] [address] Performed By: #### 5 7021-8 ####[facility] HOSPITALWNCLIA [id number] [place] [address] [place] Lymphocytes/100 WBC (Bld) 19.2 % Normal [facility] Comment on above: Order Comment: Speci men Type: BLOOD SPECIMENOrdering Facility: [facility] Address: [address] [place] [address] Performed By: #### 5 7021-8 ####[facility] CENTERRADHA [id number] [place] [address] [place] MCH (RBC) [Entitic mass] 36.5 pg High 26.0-34.0 [facility] Comment on above: Order Comment: Speci men Type: BLOOD SPECIMENOrdering Facility: [facility] Address: [address] [place] [address] Performed By: #### 5 7021-8 ####[facility] HOSPITALMALENA [id number] [place] [address] [place] MCHC (RBC) [Mass/Vol] 33.0 g/dL Normal 30.5-36.0 [facility] Comment on above: Order Comment: Speci men Type: BLOOD SPECIMENOrdering Facility: [facility] Address: [address] [place] [address] Performed By: #### 5 7021-8 ####[facility] HOSPITALROBERTOGDEN REG[facility] [id number] [place] [address] [place] MCV (RBC) [Entitic vol] 110.5 fL High 80.0-100.0 [facility] Comment on above: Order Comment: Speci men Type: BLOOD SPECIMENOrdering Facility: [facility] Address: [address] [place] [address] Performed By: #### 5 7021-8 ####[facility] HOSPITALROBERTManuel [id number] [place] [address] [place] Monocytes (Bld) [#/Vol] 0.79 10*3/uL Normal <0.87 [facility] Comment on above: Order Comment: Speci men Type: BLOOD SPECIMENOrdering Facility: [facility] Address: [address] [place] [address] Performed By: #### 5 7021-8 ####[facility] HOSPITALNCLI [id number] [place] [address] [place] Monocytes/100 WBC (Bld) 15.1 % Normal [facility] Comment on above: Order Comment: Speci men Type: BLOOD SPECIMENOrdering Facility: [facility] Address: [address] [place] [address] Performed By: #### 5 7021-8 ####[facility] HOSPITALNCOGDEN REG[facility]AL [facility] [id number] [place] [address] [place] Neutrophils (Bld) [#/Vol] 3.24 10*3/uL Normal 1.45-7.50 [facility] Comment on above: Order Comment: Speci men Type: BLOOD SPECIMENOrdering Facility: [facility] Address: [address] [place] [address] Performed By: #### 5 7021-8 ####[facility] [id number] [place] [address] [place] Neutrophils/100 WBC (Bld) 62.0 % Normal [facility] Comment on above: Order Comment: Speci men Type: BLOOD SPECIMENOrdering Facility: [facility] Address: [address] [place] [address] Performed By: #### 5 7021-8 ####[facility] [id number] [place] [address] [place] Nucleated RBC (Bld) [#/Vol] 10*3/uL Normal <0.01 [facility] Comment on above: Order Comment: Speci men Type: BLOOD SPECIMENOrdering Facility: [facility] Address: [address] [place] [address] Performed By: #### 5 7021-8 ####[facility] [id number] [place] [address] [place] Nucleated RBC/100 WBC (Bld) [Ratio] 0.0 /100 WBC Normal [facility] Comment on above: Order Comment: Speci men Type: BLOOD SPECIMENOrdering Facility: [facility] Address: [address] [place] [address] Performed By: #### 5 7021-8 ####[facility] HASEEB [id number] [place] [address] [place] Platelet mean volume (Bld) [Entitic vol] 11.5 fL Normal 9.0-12.7 [facility] Comment on above: Order Comment: Speci men Type: BLOOD SPECIMENOrdering Facility: [facility] Address: [address] [place] [address] Performed By: #### 5 7021-8 ####[facility] HOSPITALMALENA [id number] [place] [address] [place] Platelets (Bld) [#/Vol] 275 10*3/uL Normal 150-400 [facility] Comment on above: Order Comment: Speci men Type: BLOOD SPECIMENOrdering Facility: [facility] Address: [address] [place] [address] Performed By: #### 5 7021-8 ####[facility] HOSPITALNCCONSTANCEA [id number] [place] [address] [place] RBC (Bld) [#/Vol] 2.66 10*6/uL Low 4.20-6.00 [facility] Comment on above: Order Comment: Speci men Type: BLOOD SPECIMENOrdering Facility: [facility] Address: [address] [place] [address] Performed By: #### 5 7021-8 ####[facility] HOSPITALNCLIA [id number] [place] [address] [place] WBC (Bld) [#/Vol] 5.22 10*3/uL Normal 3.70-11.00 [facility] Comment on above: Order Comment: Speci men Type: BLOOD SPECIMENOrdering Facility: [facility] Address: [address] [place] [address] Performed By: #### 5 7021-8 ####[facility] MILLTOWNCLIA [id number] [place] [address] [place] CNOVSPon 01-06-2025 CNOVSP Normal [facility] Comprehensive metabolic 2000 panelon 01-06-2025 Albumin [Mass/Vol] 4.1 g/dL Normal 3.9-4.9 [facility] Comment on above: Order Comment: Speci men Type: BLOOD SPECIMENOrdering Facility: [facility] Address: [address] [place] [address] Performed By: #### 2 4323-8 ####[facility] MILLTOWNCLIA [id number] [place] [address] [place] ALP [Catalytic activity/Vol] 84 U/L Normal 38-113 [facility] Comment on above: Order Comment: Speci men Type: BLOOD SPECIMENOrdering Facility: [facility] Address: [address] [place] [address] Performed By: #### 2 4323-8 ####[facility] MILLTOWNCLIA [id number] [place] [address] [place] ALT [Catalytic activity/Vol] 17 U/L Normal 10-54 [facility] Comment on above: Order Comment: Speci men Type: BLOOD SPECIMENOrdering Facility: [facility] Address: [address] [place] [address] Performed By: #### 2 4323-8 ####[facility] MILLTOWNCLIA [id number] [place] [address] [place] Anion gap [Moles/Vol] 11 mmol/L Normal 8-15 [facility] Comment on above: Order Comment: Speci men Type: BLOOD SPECIMENOrdering Facility: [facility] Address: [address] [place] [address] Performed By: #### 2 4323-8 ####[facility] MILLTOWNCLIA [id number] [place] [address] [place] AST [Catalytic activity/Vol] 24 U/L Normal 14-40 [facility] Comment on above: Order Comment: Speci men Type: BLOOD SPECIMENOrdering Facility: [facility] Address: [address] [place] [address] Performed By: #### 2 4323-8 ####[facility] MILLTOWNCLIA [id number] [place] [address] [place] Bilirubin [Mass/Vol] 1.4 mg/dL High 0.2-1.3 [facility] Comment on above: Order Comment: Speci men Type: BLOOD SPECIMENOrdering Facility: [facility] Address: [address] [place] [address] Performed By: #### 2 4323-8 ####[facility] HOSPITALWNCLIA [id number] [place] [address] [place] Calcium [Mass/Vol] 9.1 mg/dL Normal 8.5-10.2 [facility] Comment on above: Order Comment: Speci men Type: BLOOD SPECIMENOrdering Facility: [facility] Address: [address] [place] [address] Performed By: #### 2 4323-8 ####[facility] MILLWNCLIA [id number] [place] [address] [place] Chloride [Moles/Vol] 103 mmol/L Normal 98-107 [facility] Comment on above: Order Comment: Speci men Type: BLOOD SPECIMENOrdering Facility: [facility] Address: [address] [place] [address] Performed By: #### 2 4323-8 ####[facility] MILLTOWNCLIA [id number] [place] [address] [place] CO2 [Moles/Vol] 28 mmol/L Normal 22-30 [facility] Comment on above: Order Comment: Speci men Type: BLOOD SPECIMENOrdering Facility: [facility] Address: [address] [place] [address] Performed By: #### 2 4323-8 ####[facility] MEENAKSHIWNCRADHA [id number] [place] [address] [place] Creatinine [Mass/Vol] 0.93 mg/dL Normal 0.73-1.22 [facility] Comment on above: Order Comment: Speci men Type: BLOOD SPECIMENOrdering Facility: [facility] Address: [address] [place] [address] Performed By: #### 2 4323-8 ####[facility] HOSPITALNCLIManuel [id number] [place] [address] [place] Creatinine and Glomerular filtration rate.predicted panel (S/P/Bld) 78 mL/min/1.73m??? Normal >=60 [facility] Comment on above: Order Comment: Speci men Type: BLOOD SPECIMENOrdering Facility: [facility] Address: [address] [place] [address] Result Comment: Concepción mated Glomerular Filtration Rate [...] actual GFR. Performed By: #### 2 4323-8 ####[facility] HOSPITALNCLIA [id number] [place] [address] [place] Glucose [Mass/Vol] 78 mg/dL Normal 74-99 [facility] Comment on above: Order Comment: Speci men Type: BLOOD SPECIMENOrdering Facility: [facility] Address: [address] [place], [place] [address] Result Comment: The [place] Diabetes Association (ADA) provides guidance for cutoff [...] Standards of Medical Care in Diabetes 2016, [place] [employer] Association. Diabetes Care. 2016.39(Suppl 1). Performed By: #### 2 4323-8 ####[facility] MILLTOWNCLIA [id number] [place] [address] [place] Potassium [Moles/Vol] 4.4 mmol/L Normal 3.7-5.1 [facility] Comment on above: Order Comment: Speci men Type: BLOOD SPECIMENOrdering Facility: [facility] Address: [address] [place] [address] Performed By: #### 2 4323-8 ####[facility] MILLTOWNCLIA [id number] [place] [address] [place] Protein [Mass/Vol] 6.7 g/dL Normal 6.3-8.0 [facility] Comment on above: Order Comment: Speci men Type: BLOOD SPECIMENOrdering Facility: [facility] Address: [address] [place] [address] Performed By: #### 2 4323-8 ####[facility] MILLTOWNCLIA [id number] [place] [address] [place] Sodium [Moles/Vol] 142 mmol/L Normal 136-144 [facility] Comment on above: Order Comment: Speci men Type: BLOOD SPECIMENOrdering Facility: [facility] Address: [address] [place] [address] Performed By: #### 2 4323-8 ####[facility] MILLTOWNCLIA [id number] [place] [address] [place] Urea nitrogen [Mass/Vol] 29 mg/dL High 9-24 [facility] Comment on above: Order Comment: Speci men Type: BLOOD SPECIMENOrdering Facility: [facility] Address: [address] [place] [address] Performed By: #### 2 4323-8 ####[facility] [id number] [place] [address] [place] EPO SerPl-aCncon 01-06-2025 Erythropoietin (EPO) Qn 136.9 mIU/mL High 2.6-18.5 [facility] Comment on above: Order Comment: Speci men Type: BLOOD SPECIMENOrdering Facility: [facility] Address: [address] [place] [address] Performed By: #### 1 5061-5 ####[facility] LABCLIA [id number] [place] [address] [place] Ferritin SerPl-mCncon 2024 Ferritin [Mass/Vol] 551.0 ng/mL Normal 30.3-565.7 [facility] Comment on above: Order Comment: Speci men Type: BLOOD SPECIMENOrdering Facility: [facility] Address: [address] [place] [address] Performed By: #### 2 284-8, 11544-9, 2276-4, 2132-9 ####[facility] LABORATORYCLIA [id number] [place] [address] [place] Folate SerPl-mCncon 01-06-20 25 Folate [Mass/Vol] ng/mL Normal >4.7 [facility] Comment on above: Order Comment: Speci men Type: BLOOD SPECIMENOrdering Facility: [facility] Address: [address] [place] [address] Result Comment: A re sult of > 20 ng/mL is not necessarily indicative of a pathologic or treatable condition: it reflects a limitation of the test methodology.Assay reference range: 4.8 to 24.2 ng/mL. Suitable for detection of folate deficiency.Reference:Folate III (Folate III) [package insert V 1.0 Vincentian]. [facility], [place], [place]: September 2015. Performed By: #### 2 284-8, 01276-7, 2275-4, 2132-07 ####[facility] LABORATORYCLIA [id number] [place] [id number] [place] [facility] Iron and Iron binding capaci ty panelon 01-06-2025 Iron [Mass/Vol] 155 ug/dL Normal 41-186 [facility] Comment on above: Order Comment: Speci men Type: BLOOD SPECIMENOrdering Facility: [facility] Address: [address] [place] [address] Performed By: #### 2 284-8, 37351-1, 2276-02, 2132-07 ####[facility] HOSPITALIA [id number] [address] STATES OF [facility] Iron binding capacity [Mass/Vol] 172 ug/dL Low 232-386 [facility] Comment on above: Order Comment: Speci men Type: BLOOD SPECIMENOrdering Facility: [facility] Address: [address] [place] [address] Performed By: #### 2 284-8, 05876-0, 4, 2132-07 ####[facility] [id number] [address] STATES [facility] Iron saturation [Mass fraction] 90.1 % High 15.0-57.0 [facility] Comment on above: Order Comment: Speci men Type: BLOOD SPECIMENOrdering Facility: [facility] Address: [address] [place] [address] Performed By: #### 2 284-8, 46977-6, 4, 2132-07 ####[facility] LABORATORYCLIA [id number] [place] [id number] [place] Methylmalonate SerPl-sCncon 01-06-2025 Methylmalonate [Moles/Vol] 0.21 umol/L Normal <=0.40 [facility] Comment on above: Order Comment: Elfego gilbert Type: BLOOD SPECIMENOrdering Facility: [facility] Address: [address] [place], [place] [address] Result Comment: This test was developed, and its performance characteristics determined by the [facility] Department of Pathology and Laboratory Medicine. It has not been cleared or approved by the FDA. The [facility] Department of Pathology and Laboratory Medicine is regulated under CLIA as qualified to perform high-complexity testing. This test is used for clinical purposes. It should not be regarded as investigational or for research. Performed By: #### 1 3964-2 ####[facility] LABCLIA [id number] [place] [address] [place] Vit B12 SerPl-ncon 01-06-2 025 Cobalamin (Vitamin B12) [Mass/Vol] 768 pg/mL Normal 232-1245 [facility] Comment on above: Order Comment: Elfego gilbert Type: BLOOD SPECIMENOrdering Facility: [facility] Address: [address] [place] [address] Performed By: #### 2 284-8, 62642-1, 2276-4, 2132-9 ####[facility] LABORATORYCLIA [id number] [place], [place] [id number] [place] [address] [place] CNOVon 12-30-2024 [facility] -- SRINI LUIS ([id number]) 1935 M Date Time Provider Department 12/30/24 2:15 PM REM DEVICE [facility] During your visit today, we recorded the following information about you: Israel Minor MD 01/08/2025 10:00 PM Signed Dual Pacer Remote Check Date: December 30, 2024 Time: 2:51 PM Devices: Implants Ra Lead Biotronik-09/17/2022 - Implanted Heart Model/Cat number: ADAIR Pena [id number] Serial number: [id number] Anodic Operator: [employer] Virtual Lot number: LEFT AXILLARY VEIN Size: Right Atrial Pacing Lead Rv Lead Biotronik-09/17/2022 - Implanted Heart Model/Cat number: ADAIR Pena 60 [id number] Serial number: [id number] Anodic Operator: [employer] Virtual Lot number: LEFT CEPHALIC VEIN Size: Right Ventricular Pacing Lead Pacemaker Dual Pacer Biotronik-09/17/2022 - Implanted (Left) Chest Wall Model/Cat number: GUY [id number] Serial number: [id number] Anodic Operator: ThumbRONIAllmyapps Lot number: INITIAL DUAL PACER IMPLANT. Size: [...] and provider appointment. View External Cardiology - Car Retarder Operator Strips [ID [id number]] Allergies As of Date: 12/30/2024 Noted Allergy [...] by this patient by: DAUGHTER Ten Weber, [facility] Problem List As Of Date 12/30/2024 Noted [...] Seborrheic Essie (more content not included)... Normal [facility] CBC W Auto Differential pane l (Bld)on 12-23-2024 Basophils (Bld) [#/Vol] 0.06 10*3/uL Normal <0.11 [facility] Comment on above: Order Comment: Speci men Type: BLOOD SPECIMENOrdering Facility: [facility] Address: [address] [place] [address] Performed By: #### 5 7021-8 ####[facility] [id number] [place] [address] [place] Basophils/100 WBC (Bld) 1.2 % Normal [facility] Comment on above: Order Comment: Speci men Type: BLOOD SPECIMENOrdering Facility: [facility] Address: [address] [place] [address] Performed By: #### 5 7021-8 ####[facility]PITALNCOGD[facility] [id number] [place] [address] [place] Differential cell count method Nom (Bld) Auto Normal [facility] Comment on above: Order Comment: Speci men Type: BLOOD SPECIMENOrdering Facility: [facility] Address: [address] [place] [address] Performed By: #### 5 7021-8 ####[facility] KATECONSTANCEManuel [id number] [place] [address] [place] Eosinophils (Bld) [#/Vol] 0.18 10*3/uL Normal <0.46 [facility] Comment on above: Order Comment: Speci men Type: BLOOD SPECIMENOrdering Facility: [facility] Address: [address] [place] [address] Performed By: #### 5 7021-8 ####[facility] HOSPITALMALENA [id number] [place] [address] [place] Eosinophils/100 WBC (Bld) 3.7 % Normal [facility] Comment on above: Order Comment: Speci men Type: BLOOD SPECIMENOrdering Facility: [facility] Address: [address] [place] [address] Performed By: #### 5 7021-8 ####[facility] HOSPITALNCManuel [id number] [place] [address] [place] Erythrocyte distribution width (RBC) [Ratio] 20.5 % High 11.5-15.0 [facility] Comment on above: Order Comment: Speci men Type: BLOOD SPECIMENOrdering Facility: [facility] Address: [address] [place] [address] Performed By: #### 5 7021-8 ####[facility] HOSPITALNCLIA [id number] [place] [address] [place] Hematocrit (Bld) [Volume fraction] 28.7 % Low 39.0-51.0 [facility] Comment on above: Order Comment: Speci men Type: BLOOD SPECIMENOrdering Facility: [facility] Address: [address] [place] [address] Performed By: #### 5 7021-8 ####[facility] HOSPITALNCLIA [id number] [place] [address] [place] Hemoglobin (Bld) [Mass/Vol] 9.7 g/dL Low 13.0-17.0 [facility] Comment on above: Order Comment: Speci men Type: BLOOD SPECIMENOrdering Facility: [facility] Address: [address] [place] [address] Performed By: #### 5 7021-8 ####[facility] CENTERLIA [id number] [place] [address] [place] Immature granulocytes (Bld) [#/Vol] 10*3/uL Normal <0.10 [facility] Comment on above: Order Comment: Speci men Type: BLOOD SPECIMENOrdering Facility: [facility] Address: [address] [place] [address] Performed By: #### 5 7021-8 ####[facility] [id number] [place] [address] [place] Immature granulocytes/100 WBC (Bld) 0.4 % Normal [facility] Comment on above: Order Comment: Speci men Type: BLOOD SPECIMENOrdering Facility: [facility] Address: [address] [place], [place] [address] Performed By: #### 5 7021-8 ####[facility] CENTERLIA [id number] [place] [address] [place] Lymphocytes (Bld) [#/Vol] 1.06 10*3/uL Normal 1.00-4.00 [facility] Comment on above: Order Comment: Speci men Type: BLOOD SPECIMENOrdering Facility: [facility] Address: [address] [place] [address] Performed By: #### 5 7021-8 ####[facility] CENTERLIA [id number] [place] [address] [place] Lymphocytes/100 WBC (Bld) 21.8 % Normal [facility] Comment on above: Order Comment: Speci men Type: BLOOD SPECIMENOrdering Facility: [facility] Address: [address] [place] [address] Performed By: #### 5 7021-8 ####[facility] HOSPITALNCCONSTANCE [id number] [place] [address] [place] MCH (RBC) [Entitic mass] 36.6 pg High 26.0-34.0 [facility] Comment on above: Order Comment: Speci men Type: BLOOD SPECIMENOrdering Facility: [facility] Address: [address] [place] [address] Performed By: #### 5 7021-8 ####[facility] HOSPITALNCOGDEN [facility] [id number] [place] [address] [place] MCHC (RBC) [Mass/Vol] 33.8 g/dL Normal 30.5-36.0 [facility] Comment on above: Order Comment: Speci men Type: BLOOD SPECIMENOrdering Facility: [facility] Address: [address] [place] [address] Performed By: #### 5 7021-8 ####[facility] HOSPITALNCLIA [id number] [place] [address] [place] MCV (RBC) [Entitic vol] 108.3 fL High 80.0-100.0 [facility] Comment on above: Order Comment: Speci men Type: BLOOD SPECIMENOrdering Facility: [facility] Address: [address] [place] [address] Performed By: #### 5 7021-8 ####[facility] HOSPITALNCLIA [id number] [place] [address] [place] Monocytes (Bld) [#/Vol] 0.69 10*3/uL Normal <0.87 [facility] Comment on above: Order Comment: Speci men Type: BLOOD SPECIMENOrdering Facility: [facility] Address: [address] [place] [address] Performed By: #### 5 7021-8 ####[facility] HOSPITALNCLIA [id number] [place] [address] [place] Monocytes/100 WBC (Bld) 14.2 % Normal [facility] Comment on above: Order Comment: Speci men Type: BLOOD SPECIMENOrdering Facility: [facility] Address: [address] [place] [address] Performed By: #### 5 7021-8 ####[facility]PITALNCOGD[facility] [id number] [place] [address] [place] Neutrophils (Bld) [#/Vol] 2.86 10*3/uL Normal 1.45-7.50 [facility] Comment on above: Order Comment: Speci men Type: BLOOD SPECIMENOrdering Facility: [facility] Address: [address] [place] [address] Performed By: #### 5 7021-8 ####[facility] [id number] [place] [address] [place] Neutrophils/100 WBC (Bld) 58.7 % Normal [facility] Comment on above: Order Comment: Speci men Type: BLOOD SPECIMENOrdering Facility: [facility] Address: [address] [place] [address] Performed By: #### 5 7021-8 ####[facility] [id number] [place] [address] [place] Nucleated RBC (Bld) [#/Vol] 10*3/uL Normal <0.01 [facility] Comment on above: Order Comment: Speci men Type: BLOOD SPECIMENOrdering Facility: [facility] Address: [address] [place] [address] Performed By: #### 5 7021-8 ####[facility] HOSPITALNCLIA [id number] [place] [address] [place] Nucleated RBC/100 WBC (Bld) [Ratio] 0.0 /100 WBC Normal [facility] Comment on above: Order Comment: Speci men Type: BLOOD SPECIMENOrdering Facility: [facility] Address: [address] [place] [address] Performed By: #### 5 7021-8 ####[facility]ENTERCONSTANCE [id number] [place] [address] [place] Platelet mean volume (Bld) [Entitic vol] 10.9 fL Normal 9.0-12.7 [facility] Comment on above: Order Comment: Speci men Type: BLOOD SPECIMENOrdering Facility: [facility] Address: [address] [place] [address] Performed By: #### 5 7021-8 ####[facility] [id number] [place] [address] [place] Platelets (Bld) [#/Vol] 238 10*3/uL Normal 150-400 [facility] Comment on above: Order Comment: Speci men Type: BLOOD SPECIMENOrdering Facility: [facility] Address: [address] [place] [address] Performed By: #### 5 7021-8 ####[facility] [id number] [place] [address] [place] RBC (Bld) [#/Vol] 2.65 10*6/uL Low 4.20-6.00 [facility] Comment on above: Order Comment: Speci men Type: BLOOD SPECIMENOrdering Facility: [facility] Address: [address] [place] [address] Performed By: #### 5 7021-8 ####[facility] HOSPITALNCLI [id number] [place] [address] [place] WBC (Bld) [#/Vol] 4.87 10*3/uL Normal 3.70-11.00 [facility] Comment on above: Order Comment: Speci men Type: BLOOD SPECIMENOrdering Facility: [facility] Address: [address] [place] [address] Performed By: #### 5 7021-8 ####[facility] [id number] [place] [address] [place] CBC W Auto Differential pane l (Bld)on 12-09-2024 Basophils (Bld) [#/Vol] 0.05 10*3/uL Normal <0.11 [facility] Comment on above: Order Comment: Speci men Type: BLOOD SPECIMENOrdering Facility: [facility] Address: [address] [place] [address] Performed By: #### 5 7021-8 ####[facility] [id number] [place] [address] [place] Basophils/100 WBC (Bld) 0.9 % Normal [facility] Comment on above: Order Comment: Speci men Type: BLOOD SPECIMENOrdering Facility: [facility] Address: [address] [place] [address] Performed By: #### 5 7021-8 ####[facility] [id number] [place] [address] [place] Differential cell count method Nom (Bld) Auto Normal [facility] Comment on above: Order Comment: Speci men Type: BLOOD SPECIMENOrdering Facility: [facility] Address: [address] [place] [address] Performed By: #### 5 7021-8 ####[facility] [id number] [place] [address] [place] Eosinophils (Bld) [#/Vol] 0.13 10*3/uL Normal <0.46 [facility] Comment on above: Order Comment: Speci men Type: BLOOD SPECIMENOrdering Facility: [facility] Address: [address] [place] [address] Performed By: #### 5 7021-8 ####[facility] HOSPITALNCOGDEN [facility] [id number] [place] [address] [place] Eosinophils/100 WBC (Bld) 2.3 % Normal [facility] Comment on above: Order Comment: Speci men Type: BLOOD SPECIMENOrdering Facility: [facility] Address: [address] [place] [address] Performed By: #### 5 7021-8 ####[facility]PITALNCOGD[facility] [id number] [place] [address] [place] Erythrocyte distribution width (RBC) [Ratio] 20.4 % High 11.5-15.0 [facility] Comment on above: Order Comment: Speci men Type: BLOOD SPECIMENOrdering Facility: [facility] Address: [address] [place] [address] Performed By: #### 5 7021-8 ####[facility] [id number] [place] [address] [place] Hematocrit (Bld) [Volume fraction] 29.1 % Low 39.0-51.0 [facility] Comment on above: Order Comment: Speci men Type: BLOOD SPECIMENOrdering Facility: [facility] Address: [address] [place] [address] Performed By: #### 5 7021-8 ####[facility] [id number] [place] [address] [place] Hemoglobin (Bld) [Mass/Vol] 9.6 g/dL Low 13.0-17.0 [facility] Comment on above: Order Comment: Speci men Type: BLOOD SPECIMENOrdering Facility: [facility] Address: [address] [place] [address] Performed By: #### 5 7021-8 ####[facility] MILLTOWNCLIA [id number] [place] [address] [place] Immature granulocytes (Bld) [#/Vol] 10*3/uL Normal <0.10 [facility] Comment on above: Order Comment: Speci men Type: BLOOD SPECIMENOrdering Facility: [facility] Address: [address] [place] [address] Performed By: #### 5 7021-8 ####[facility] MILLWNCLIA [id number] [place] [address] [place] Immature granulocytes/100 WBC (Bld) 0.3 % Normal [facility] Comment on above: Order Comment: Speci men Type: BLOOD SPECIMENOrdering Facility: [facility] Address: [address] [place] [address] Performed By: #### 5 7021-8 ####[facility] HOSPITALWNCLIA [id number] [place] [address] [place] Lymphocytes (Bld) [#/Vol] 1.12 10*3/uL Normal 1.00-4.00 [facility] Comment on above: Order Comment: Speci men Type: BLOOD SPECIMENOrdering Facility: [facility] Address: [address] [place] [address] Performed By: #### 5 7021-8 ####[facility] MILLTOWNCLIA [id number] [place] [address] [place] Lymphocytes/100 WBC (Bld) 19.5 % Normal [facility] Comment on above: Order Comment: Speci men Type: BLOOD SPECIMENOrdering Facility: [facility] Address: [address] [place] [address] Performed By: #### 5 7021-8 ####[facility] MILLTOWNCLIA [id number] [place] [address] [place] MCH (RBC) [Entitic mass] 36.6 pg High 26.0-34.0 [facility] Comment on above: Order Comment: Speci men Type: BLOOD SPECIMENOrdering Facility: [facility] Address: [address] [place] [address] Performed By: #### 5 7021-8 ####[facility] HOSPITALMALENA [id number] [place] [address] [place] MCHC (RBC) [Mass/Vol] 33.0 g/dL Normal 30.5-36.0 [facility] Comment on above: Order Comment: Speci men Type: BLOOD SPECIMENOrdering Facility: [facility] Address: [address] [place] [address] Performed By: #### 5 7021-8 ####[facility] HOSPITALMALENA [id number] [place] [address] [place] MCV (RBC) [Entitic vol] 111.1 fL High 80.0-100.0 [facility] Comment on above: Order Comment: Speci men Type: BLOOD SPECIMENOrdering Facility: [facility] Address: [address] [place] [address] Performed By: #### 5 7021-8 ####[facility] HOSPITALMALENA [id number] [place] [address] [place] Monocytes (Bld) [#/Vol] 0.82 10*3/uL Normal <0.87 [facility] Comment on above: Order Comment: Speci men Type: BLOOD SPECIMENOrdering Facility: [facility] Address: [address] [place] [address] Performed By: #### 5 7021-8 ####[facility] HOSPITALNCLIA [id number] [place] [address] [place] Monocytes/100 WBC (Bld) 14.3 % Normal [facility] Comment on above: Order Comment: Speci men Type: BLOOD SPECIMENOrdering Facility: [facility] Address: [address] [place] [address] Performed By: #### 5 7021-8 ####[facility] [id number] [place] [address] [place] Neutrophils (Bld) [#/Vol] 3.61 10*3/uL Normal 1.45-7.50 [facility] Comment on above: Order Comment: Speci men Type: BLOOD SPECIMENOrdering Facility: [facility] Address: [address] [place] [address] Performed By: #### 5 7021-8 ####[facility] [id number] [place] [address] [place] Neutrophils/100 WBC (Bld) 62.7 % Normal [facility] Comment on above: Order Comment: Speci men Type: BLOOD SPECIMENOrdering Facility: [facility] Address: [address] [place] [address] Performed By: #### 5 7021-8 ####[facility] [id number] [place] [address] [place] Nucleated RBC (Bld) [#/Vol] 0.02 10*3/uL High <0.01 [facility] Comment on above: Order Comment: Speci men Type: BLOOD SPECIMENOrdering Facility: [facility] Address: [address] [place] [address] Performed By: #### 5 7021-8 ####[facility] [id number] [place] [address] [place] Nucleated RBC/100 WBC (Bld) [Ratio] 0.3 /100 WBC Normal [facility] Comment on above: Order Comment: Speci men Type: BLOOD SPECIMENOrdering Facility: [facility] Address: [address] [place] [address] Performed By: #### 5 7021-8 ####[facility] JONHJULIOA [id number] [place] [address] [place] Platelet mean volume (Bld) [Entitic vol] 10.7 fL Normal 9.0-12.7 [facility] Comment on above: Order Comment: Speci men Type: BLOOD SPECIMENOrdering Facility: [facility] Address: [address] [place] [address] Performed By: #### 5 7021-8 ####[facility] HOSPITALROBERTA [id number] [place] [address] [place] Platelets (Bld) [#/Vol] 261 10*3/uL Normal 150-400 [facility] Comment on above: Order Comment: Speci men Type: BLOOD SPECIMENOrdering Facility: [facility] Address: [address] [place] [address] Performed By: #### 5 7021-8 ####[facility] [id number] [place] [address] [place] RBC (Bld) [#/Vol] 2.62 10*6/uL Low 4.20-6.00 [facility] Comment on above: Order Comment: Speci men Type: BLOOD SPECIMENOrdering Facility: [facility] Address: [address] [place], [place] [address] Performed By: #### 5 7021-8 ####[facility] CENTERLIA [id number] [place] [address] [place] WBC (Bld) [#/Vol] 5.75 10*3/uL Normal 3.70-11.00 [facility] Comment on above: Order Comment: Speci men Type: BLOOD SPECIMENOrdering Facility: [facility] Address: [address] [place] [address] Performed By: #### 5 7021-8 ####[facility] MILLWNCLIA [id number] [place] [address] [place] CNPNon 11-25-2024 CNPN Normal [facility] CBC W Auto Differential pane l (Bld)on 11-24-2024 Basophils (Bld) [#/Vol] 0.06 10*3/uL Normal <0.11 [facility] Comment on above: Order Comment: Speci men Type: BLOOD SPECIMENOrdering Facility: [facility] Address: [address] [place] [address] Performed By: #### 5 7021-8 ####[facility] CENTERLIA [id number] [place] [address] [place] Basophils/100 WBC (Bld) 0.9 % Normal [facility] Comment on above: Order Comment: Speci men Type: BLOOD SPECIMENOrdering Facility: [facility] Address: [address] [place] [address] Performed By: #### 5 7021-8 ####[facility] CENTERLIA [id number] [place] [address] [place] Differential cell count method Nom (Bld) Auto Normal [facility] Comment on above: Order Comment: Speci men Type: BLOOD SPECIMENOrdering Facility: [facility] Address: [address] [place] [address] Performed By: #### 5 7021-8 ####[facility] MILLWNCLIA [id number] [place] [address] [place] Eosinophils (Bld) [#/Vol] 0.10 10*3/uL Normal <0.46 [facility] Comment on above: Order Comment: Speci men Type: BLOOD SPECIMENOrdering Facility: [facility] Address: [address] [place] [address] Performed By: #### 5 7021-8 ####[facility] MILLCHARLOTTENCLIA [id number] [place] [address] [place] Eosinophils/100 WBC (Bld) 1.5 % Normal [facility] Comment on above: Order Comment: Speci men Type: BLOOD SPECIMENOrdering Facility: [facility] Address: [address] [place] [address] Performed By: #### 5 7021-8 ####[facility] [id number] [place] [address] [place] Erythrocyte distribution width (RBC) [Ratio] 19.7 % High 11.5-15.0 [facility] Comment on above: Order Comment: Speci men Type: BLOOD SPECIMENOrdering Facility: [facility] Address: [address] [place] [address] Performed By: #### 5 7021-8 ####[facility] [id number] [place] [address] [place] Hematocrit (Bld) [Volume fraction] 26.5 % Low 39.0-51.0 [facility] [facility] Comment on above: Order Comment: Speci men Type: BLOOD SPECIMENOrdering Facility: [facility] Address: [address] [place] [address] Performed By: #### 5 7021-8 ####[facility] [id number] [place] [address] [place] Hemoglobin (Bld) [Mass/Vol] 8.8 g/dL Low 13.0-17.0 [facility] Comment on above: Order Comment: Speci men Type: BLOOD SPECIMENOrdering Facility: [facility] Address: [address] [place] [address] Performed By: #### 5 7021-8 ####[facility] HOSPITALNCLI [id number] [place] [address] [place] Immature granulocytes (Bld) [#/Vol] 0.03 10*3/uL Normal <0.10 [facility] Comment on above: Order Comment: Speci men Type: BLOOD SPECIMENOrdering Facility: [facility] Address: [address] [place] [address] Performed By: #### 5 7021-8 ####[facility] [id number] [place] [address] [place] Immature granulocytes/100 WBC (Bld) 0.5 % Normal [facility] Comment on above: Order Comment: Speci men Type: BLOOD SPECIMENOrdering Facility: [facility] Address: [address] [place] [address] Performed By: #### 5 7021-8 ####[facility] [id number] [place] [address] [place] Lymphocytes (Bld) [#/Vol] 1.04 10*3/uL Normal 1.00-4.00 [facility] Comment on above: Order Comment: Speci men Type: BLOOD SPECIMENOrdering Facility: [facility] Address: [address] [place] [address] Performed By: #### 5 7021-8 ####[facility] [id number] [place] [address] [place] Lymphocytes/100 WBC (Bld) 16.0 % Normal [facility] Comment on above: Order Comment: Speci men Type: BLOOD SPECIMENOrdering Facility: [facility] Address: [address] [place] [address] Performed By: #### 5 7021-8 ####[facility] [id number] [place] [address] [place] MCH (RBC) [Entitic mass] 37.9 pg High 26.0-34.0 [facility] Comment on above: Order Comment: Speci men Type: BLOOD SPECIMENOrdering Facility: [facility] Address: [address] [place] [address] Performed By: #### 5 7021-8 ####[facility] JONHWNCLIA [id number] [place] [address] [place] MCHC (RBC) [Mass/Vol] 33.2 g/dL Normal 30.5-36.0 [facility] Comment on above: Order Comment: Speci men Type: BLOOD SPECIMENOrdering Facility: [facility] Address: [address] [place] [address] Performed By: #### 5 7021-8 ####[facility] HOSPITALNCLIA [id number] [place] [address] [place] MCV (RBC) [Entitic vol] 114.2 fL High 80.0-100.0 [facility] Comment on above: Order Comment: Speci men Type: BLOOD SPECIMENOrdering Facility: [facility] Address: [address] [place] [address] Performed By: #### 5 7021-8 ####[facility] HOSPITALNCLIA [id number] [place] [address] [place] Monocytes (Bld) [#/Vol] 0.79 10*3/uL Normal <0.87 [facility] Comment on above: Order Comment: Speci men Type: BLOOD SPECIMENOrdering Facility: [facility] Address: [address] [place] [address] Performed By: #### 5 7021-8 ####[facility] HOSPITALNCLIA [id number] [place] [address] [place] Monocytes/100 WBC (Bld) 12.2 % Normal [facility] Comment on above: Order Comment: Speci men Type: BLOOD SPECIMENOrdering Facility: [facility] Address: [address] [place] [address] Performed By: #### 5 7021-8 ####[facility] H[facility]PITALNCLI [id number] [place] [address] [place] Neutrophils (Bld) [#/Vol] 4.48 10*3/uL Normal 1.45-7.50 [facility] Comment on above: Order Comment: Speci men Type: BLOOD SPECIMENOrdering Facility: [facility] Address: [address] [place] [address] Performed By: #### 5 7021-8 ####[facility] HOSPITALWNCLIA [id number] [place] [address] [place] Neutrophils/100 WBC (Bld) 68.9 % Normal [facility] Comment on above: Order Comment: Speci men Type: BLOOD SPECIMENOrdering Facility: [facility] Address: [address] [place] [address] Performed By: #### 5 7021-8 ####[facility] [id number] [place] [address] [place] Nucleated RBC (Bld) [#/Vol] 0.05 10*3/uL High <0.01 [facility] Comment on above: Order Comment: Speci men Type: BLOOD SPECIMENOrdering Facility: [facility] Address: [address] [place] [address] Performed By: #### 5 7021-8 ####[facility]ENTERLIA [id number] [place] [address] [place] Nucleated RBC/100 WBC (Bld) [Ratio] 0.8 /100 WBC Normal [facility] Comment on above: Order Comment: Speci men Type: BLOOD SPECIMENOrdering Facility: [facility] Address: [address] [place] [address] Performed By: #### 5 7021-8 ####[facility] HOSPITALNCLIA [id number] [place] [address] [place] Platelet mean volume (Bld) [Entitic vol] 10.2 fL Normal 9.0-12.7 [facility] Comment on above: Order Comment: Speci men Type: BLOOD SPECIMENOrdering Facility: [facility] Address: [address] [place] [address] Performed By: #### 5 7021-8 ####[facility] JONHCHARLOTTENCCONSTANCEA [id number] [place] [address] [place] Platelets (Bld) [#/Vol] 254 10*3/uL Normal 150-400 [facility] Comment on above: Order Comment: Speci men Type: BLOOD SPECIMENOrdering Facility: [facility] Address: [address] [place] [address] Performed By: #### 5 7021-8 ####[facility] HOSPITALNCLIA [id number] [place] [address] [place] RBC (Bld) [#/Vol] 2.32 10*6/uL Low 4.20-6.00 [facility] Comment on above: Order Comment: Speci men Type: BLOOD SPECIMENOrdering Facility: [facility] Address: [address] [place] [address] Performed By: #### 5 7021-8 ####[facility] H[facility]PITALNCLIA [id number] [place] [address] [place] WBC (Bld) [#/Vol] 6.50 10*3/uL Normal 3.70-11.00 [facility] Comment on above: Order Comment: Speci men Type: BLOOD SPECIMENOrdering Facility: [facility] Address: [address] [place] [address] Performed By: #### 5 7021-8 ####[facility] H[facility]PITALNCLIA [id number] [place] [address] [place] CNPNon 11-16-2024 CNPN Normal [facility] CBC W Auto Differential pane l (Bld)on 11-15-2024 Basophils (Bld) [#/Vol] 0.05 10*3/uL Normal <0.11 [facility] Comment on above: Order Comment: Speci men Type: BLOOD SPECIMENOrdering Facility: [facility] Address: [address] [place] [address] Performed By: #### 5 7021-8 ####[facility] HOSPITALWNCLIA [id number] [place] [address] [place] Basophils/100 WBC (Bld) 1.0 % Normal [facility] Comment on above: Order Comment: Speci men Type: BLOOD SPECIMENOrdering Facility: [facility] Address: [address] [place] [address] Performed By: #### 5 7021-8 ####[facility] CENTERLIA [id number] [place] [address] [place] Differential cell count method Nom (Bld) Auto Normal [facility] Comment on above: Order Comment: Speci men Type: BLOOD SPECIMENOrdering Facility: [facility] Address: [address] [place] [address] Performed By: #### 5 7021-8 ####[facility] [id number] [place] [address] [place] Eosinophils (Bld) [#/Vol] 0.10 10*3/uL Normal <0.46 [facility] Comment on above: Order Comment: Speci men Type: BLOOD SPECIMENOrdering Facility: [facility] Address: [address] [place] [address] Performed By: #### 5 7021-8 ####[facility] CENTERLIA [id number] [place] [address] [place] Eosinophils/100 WBC (Bld) 2.0 % Normal [facility] Comment on above: Order Comment: Speci men Type: BLOOD SPECIMENOrdering Facility: [facility] Address: [address] [place] [address] Performed By: #### 5 7021-8 ####[facility] HOSPITALNCLIA [id number] [place] [address] [place] Erythrocyte distribution width (RBC) [Ratio] 19.6 % High 11.5-15.0 [facility] Comment on above: Order Comment: Speci men Type: BLOOD SPECIMENOrdering Facility: [facility] Address: [address] [place] [address] Performed By: #### 5 7021-8 ####[facility] [id number] [place] [address] [place] Hematocrit (Bld) [Volume fraction] 27.2 % Low 39.0-51.0 [facility] Comment on above: Order Comment: Speci men Type: BLOOD SPECIMENOrdering Facility: [facility] Address: [address] [place] [address] Performed By: #### 5 7021-8 ####[facility] [id number] [place] [address] [place] Hemoglobin (Bld) [Mass/Vol] 9.1 g/dL Low 13.0-17.0 [facility] Comment on above: Order Comment: Speci men Type: BLOOD SPECIMENOrdering Facility: [facility] Address: [address] [place] [address] Performed By: #### 5 7021-8 ####[facility]ENTERLI [id number] [place] [address] [place] Immature granulocytes (Bld) [#/Vol] 10*3/uL Normal <0.10 [facility] Comment on above: Order Comment: Speci men Type: BLOOD SPECIMENOrdering Facility: [facility] Address: [address] [place] [address] Performed By: #### 5 7021-8 ####[facility] [id number] [place] [address] [place] Immature granulocytes/100 WBC (Bld) 0.2 % Normal [facility] Comment on above: Order Comment: Speci men Type: BLOOD SPECIMENOrdering Facility: [facility] Address: [address] [place] [address] Performed By: #### 5 7021-8 ####[facility] HOSPITALNCOGDEN [facility] [id number] [place] [address] [place] Lymphocytes (Bld) [#/Vol] 1.15 10*3/uL Normal 1.00-4.00 [facility] Comment on above: Order Comment: Speci men Type: BLOOD SPECIMENOrdering Facility: [facility] Address: [address] [place] [address] Performed By: #### 5 7021-8 ####[facility] [id number] [place] [address] [place] Lymphocytes/100 WBC (Bld) 22.7 % Normal [facility] Comment on above: Order Comment: Speci men Type: BLOOD SPECIMENOrdering Facility: [facility] Address: [address] [place] [address] Performed By: #### 5 7021-8 ####[facility] HOSPITALNCLI [id number] [place] [address] [place] MCH (RBC) [Entitic mass] 37.9 pg High 26.0-34.0 [facility] Comment on above: Order Comment: Speci men Type: BLOOD SPECIMENOrdering Facility: [facility] Address: [address] [place] [address] Performed By: #### 5 7021-8 ####[facility] HOSPITALNCOGDEN [facility] [id number] [place] [address] [place] MCHC (RBC) [Mass/Vol] 33.5 g/dL Normal 30.5-36.0 [facility] Comment on above: Order Comment: Speci men Type: BLOOD SPECIMENOrdering Facility: [facility] Address: [address] [place] [address] Performed By: #### 5 7021-8 ####[facility] JONHWilliamsNCRADHA [id number] [place] [address] [place] MCV (RBC) [Entitic vol] 113.3 fL High 80.0-100.0 [facility] Comment on above: Order Comment: Speci men Type: BLOOD SPECIMENOrdering Facility: [facility] Address: [address] [place] [address] Performed By: #### 5 7021-8 ####[facility] HOSPITALNCManuel [id number] [place] [address] [place] Monocytes (Bld) [#/Vol] 0.70 10*3/uL Normal <0.87 [facility] Comment on above: Order Comment: Speci men Type: BLOOD SPECIMENOrdering Facility: [facility] Address: [address] [place] [address] Performed By: #### 5 7021-8 ####[facility] [id number] [place] [address] [place] Monocytes/100 WBC (Bld) 13.8 % Normal [facility] Comment on above: Order Comment: Speci men Type: BLOOD SPECIMENOrdering Facility: [facility] Address: [address] [place] [address] Performed By: #### 5 7021-8 ####[facility] CENTERLIA [id number] [place] [address] [place] Neutrophils (Bld) [#/Vol] 3.05 10*3/uL Normal 1.45-7.50 [facility] Comment on above: Order Comment: Speci men Type: BLOOD SPECIMENOrdering Facility: [facility] Address: [address] [place] [address] Performed By: #### 5 7021-8 ####[facility] HOSPITALWLALIA [id number] [place] [address] [place] Neutrophils/100 WBC (Bld) 60.3 % Normal [facility] Comment on above: Order Comment: Speci men Type: BLOOD SPECIMENOrdering Facility: [facility] Address: [address] [place] [address] Performed By: #### 5 7021-8 ####[facility] CENTERLIA [id number] [place] [address] [place] Nucleated RBC (Bld) [#/Vol] 0.03 10*3/uL High <0.01 [facility] Comment on above: Order Comment: Speci men Type: BLOOD SPECIMENOrdering Facility: [facility] Address: [address] [place] [address] Performed By: #### 5 7021-8 ####[facility] [id number] [place] [address] [place] Nucleated RBC/100 WBC (Bld) [Ratio] 0.6 /100 WBC Normal [facility] Comment on above: Order Comment: Speci men Type: BLOOD SPECIMENOrdering Facility: [facility] Address: [address] [place] [address] Performed By: #### 5 7021-8 ####[facility] [id number] [place] [address] [place] Platelet mean volume (Bld) [Entitic vol] 11.2 fL Normal 9.0-12.7 [facility] Comment on above: Order Comment: Speci men Type: BLOOD SPECIMENOrdering Facility: [facility] Address: [address] [place] [address] Performed By: #### 5 7021-8 ####[facility] [id number] [place] [address] [place] Platelets (Bld) [#/Vol] 283 10*3/uL Normal 150-400 [facility] Comment on above: Order Comment: Speci men Type: BLOOD SPECIMENOrdering Facility: [facility] Address: [address] [place] [address] Performed By: #### 5 7021-8 ####[facility] HOSPITALNCA [id number] [place] [address] [place] RBC (Bld) [#/Vol] 2.40 10*6/uL Low 4.20-6.00 [facility] Comment on above: Order Comment: Speci men Type: BLOOD SPECIMENOrdering Facility: [facility] Address: [address] [place] [address] Performed By: #### 5 7021-8 ####[facility] HOSPITALNCA [id number] [place] [address] [place] WBC (Bld) [#/Vol] 5.06 10*3/uL Normal 3.70-11.00 [facility] Comment on above: Order Comment: Speci men Type: BLOOD SPECIMENOrdering Facility: [facility] Address: [address] [place] [address] Performed By: #### 5 7021-8 ####[facility] HOSPITALNCLIA [id number] [place] [address] [place] EPO SerPl-aCncon 11-15-2024 Erythropoietin (EPO) Qn 78.6 mIU/mL High 2.6-18.5 [facility] Comment on above: Order Comment: Speci men Type: BLOOD SPECIMENOrdering Facility: [facility] Address: [address] [place] [address] Performed By: #### 1 5061-5 ####[facility] LABCLIA [id number] [place] [address] [place] CNPNon 10-14-2024 [facility] Normal [facility] 10-13-2024 [facility] Telephone ([facility]) -- SRINI LUIS ([id number]) 1935 Date Time Provider Department 10/13/24 IRAM JOHNSON [facility] During your visit today, we recorded the following information about you: Iram Johnson, TOOL ROOM SUPERVISOR.[facility] 10/13/2024 8:16 AM Signed Let the patient [...] by this patient by: DAUGHTER Ten Weber, [facility] ED Problem List As Of Date 10/13/2024 Noted [...] 06/16/2023 PAF (paroxysmal atrial fibrillation) (HCC) [I48*202007/23/2023 senior care current use of anticoagulants with IN* 09/15/2022 Nocturnal hypoxemia [G47.34] 08/29/2022 PVC's (prematur (more content not included)... Normal [facility] Stress Reporton 10-12-2024 Stress Report [facility] [address] [place] [address] MR#: [id number] Acct: [id number] Name: SRINI LUIS Rep #: [id number] : 1935 88 From: Cristobal Villafuerte MD Primary Care: Care Physician,No Primary Status: REG CLI Referring Dr: Iram Johnson [employer]INGER-C Sex: M C Stress Test Report Date: [...] is 43%. This note was generated with [employer] dictation software. It may contain incorrect words, spelling, and punctuation that were not noted in checking the note before signing. 10/12/24 1213 Date Cristobal Villafuerte MD CC: ZEE Johnson; No Primary Care Physician Date Dictated: 10/12/241200 Date Transcribed: 10/12/241200 Repack Room Worker: NN Signed Normal [facility] CBC W Auto Differential pane l (Bld)on 10-11-2024 Basophils (Bld) [#/Vol] 0.06 10*3/uL Normal <0.11 [facility] Comment on above: Order Comment: Speci men Type: BLOOD SPECIMENOrdering Facility: [facility] Address: [address] [place] [address] Performed By: #### 5 7021-8 ####[facility] [id number] [place] [address] [place] Basophils/100 WBC (Bld) 1.0 % Normal [facility] Comment on above: Order Comment: Speci men Type: BLOOD SPECIMENOrdering Facility: [facility] Address: [address] [place] [address] Performed By: #### 5 7021-8 ####[facility] HOSPITALNCOGDEN [facility] [id number] [place] [address] [place] Differential cell count method Nom (Bld) Auto Normal [facility] Comment on above: Order Comment: Speci men Type: BLOOD SPECIMENOrdering Facility: [facility] Address: [address] [place] [address] Performed By: #### 5 7021-8 ####[facility] HOSPITALNCOGDEN [facility] [id number] [place] [address] [place] Eosinophils (Bld) [#/Vol] 0.12 10*3/uL Normal <0.46 [facility] Comment on above: Order Comment: Speci men Type: BLOOD SPECIMENOrdering Facility: [facility] Address: [address] [place] [address] Performed By: #### 5 7021-8 ####[facility] [id number] [place] [address] [place] Eosinophils/100 WBC (Bld) 2.1 % Normal [facility] Comment on above: Order Comment: Speci men Type: BLOOD SPECIMENOrdering Facility: [facility] Address: [address] [place] [address] Performed By: #### 5 7021-8 ####[facility] HOSPITALNCOGDEN [facility] [id number] [place] [address] [place] Erythrocyte distribution width (RBC) [Ratio] 19.7 % High 11.5-15.0 [facility] Comment on above: Order Comment: Speci men Type: BLOOD SPECIMENOrdering Facility: [facility] Address: [address] [place] [address] Performed By: #### 5 7021-8 ####[facility] [id number] [place] [address] [place] Hematocrit (Bld) [Volume fraction] 27.9 % Low 39.0-51.0 [facility] Comment on above: Order Comment: Speci men Type: BLOOD SPECIMENOrdering Facility: [facility] Address: [address] [place] [address] Performed By: #### 5 7021-8 ####[facility] JONHCHARLOTTENCLIA [id number] [place] [address] [place] Hemoglobin (Bld) [Mass/Vol] 9.2 g/dL Low 13.0-17.0 [facility] Comment on above: Order Comment: Speci men Type: BLOOD SPECIMENOrdering Facility: [facility] Address: [address] [place] [address] Performed By: #### 5 7021-8 ####[facility] HOSPITALROBERTA [id number] [place] [address] [place] Immature granulocytes (Bld) [#/Vol] 10*3/uL Normal <0.10 [facility] Comment on above: Order Comment: Speci men Type: BLOOD SPECIMENOrdering Facility: [facility] Address: [address] [place] [address] Performed By: #### 5 7021-8 ####[facility] HOSPITALROBERTLIA [id number] [place] [address] [place] Immature granulocytes/100 WBC (Bld) 0.2 % Normal [facility] Comment on above: Order Comment: Speci men Type: BLOOD SPECIMENOrdering Facility: [facility] Address: [address] [place] [address] Performed By: #### 5 7021-8 ####[facility] HOSPITALWNCLIA [id number] [place] [address] [place] Lymphocytes (Bld) [#/Vol] 1.08 10*3/uL Normal 1.00-4.00 [facility] Comment on above: Order Comment: Speci men Type: BLOOD SPECIMENOrdering Facility: [facility] Address: [address] [place] [address] Performed By: #### 5 7021-8 ####[facility] HOSPITALMALENA [id number] [place] [address] [place] Lymphocytes/100 WBC (Bld) 18.5 % Normal [facility] Comment on above: Order Comment: Speci men Type: BLOOD SPECIMENOrdering Facility: [facility] Address: [address] [place] [address] Performed By: #### 5 7021-8 ####[facility] HOSPITALMALENA [id number] [place] [address] [place] MCH (RBC) [Entitic mass] 37.6 pg High 26.0-34.0 [facility] Comment on above: Order Comment: Speci men Type: BLOOD SPECIMENOrdering Facility: [facility] Address: [address] [place] [address] Performed By: #### 5 7021-8 ####[facility] [id number] [place] [address] [place] MCHC (RBC) [Mass/Vol] 33.0 g/dL Normal 30.5-36.0 [facility] Comment on above: Order Comment: Speci men Type: BLOOD SPECIMENOrdering Facility: [facility] Address: [address] [place] [address] Performed By: #### 5 7021-8 ####[facility] HOSPITALNCLIA [id number] [place] [address] [place] MCV (RBC) [Entitic vol] 113.9 fL High 80.0-100.0 [facility] Comment on above: Order Comment: Speci men Type: BLOOD SPECIMENOrdering Facility: [facility] Address: [address] [place] [address] Performed By: #### 5 7021-8 ####[facility] HOSPITALNCLIA [id number] [place] [address] [place] Monocytes (Bld) [#/Vol] 0.84 10*3/uL Normal <0.87 [facility] Comment on above: Order Comment: Speci men Type: BLOOD SPECIMENOrdering Facility: [facility] Address: [address] [place] [address] Performed By: #### 5 7021-8 ####[facility] HOSPITALNCOGD[facility] [id number] [place] [address] [place] Monocytes/100 WBC (Bld) 14.4 % Normal [facility] Comment on above: Order Comment: Speci men Type: BLOOD SPECIMENOrdering Facility: [facility] Address: [address] [place] [address] Performed By: #### 5 7021-8 ####[facility] [id number] [place] [address] [place] Neutrophils (Bld) [#/Vol] 3.74 10*3/uL Normal 1.45-7.50 [facility] Comment on above: Order Comment: Speci men Type: BLOOD SPECIMENOrdering Facility: [facility] Address: [address] [place] [address] Performed By: #### 5 7021-8 ####[facility] [id number] [place] [address] [place] Neutrophils/100 WBC (Bld) 63.8 % Normal [facility] Comment on above: Order Comment: Speci men Type: BLOOD SPECIMENOrdering Facility: [facility] Address: [address] [place] [address] Performed By: #### 5 7021-8 ####[facility] [id number] [place] [address] [place] Nucleated RBC (Bld) [#/Vol] 0.03 10*3/uL High <0.01 [facility] Comment on above: Order Comment: Speci men Type: BLOOD SPECIMENOrdering Facility: [facility] Address: [address] [place] [address] Performed By: #### 5 7021-8 ####[facility] JONHJEAN [id number] [place] [address] [place] Nucleated RBC/100 WBC (Bld) [Ratio] 0.5 /100 WBC Normal [facility] Comment on above: Order Comment: Speci men Type: BLOOD SPECIMENOrdering Facility: [facility] Address: [address] [place] [address] Performed By: #### 5 7021-8 ####[facility] HOSPITALNCRADHA [id number] [place] [address] [place] Platelet mean volume (Bld) [Entitic vol] 11.1 fL Normal 9.0-12.7 [facility] Comment on above: Order Comment: Speci men Type: BLOOD SPECIMENOrdering Facility: [facility] Address: [address] [place] [address] Performed By: #### 5 7021-8 ####[facility] HOSPITALNCA [id number] [place] [address] [place] Platelets (Bld) [#/Vol] 259 10*3/uL Normal 150-400 [facility] Comment on above: Order Comment: Speci men Type: BLOOD SPECIMENOrdering Facility: [facility] Address: [address] [place] [address] Performed By: #### 5 7021-8 ####[facility] CENTERLIManuel [id number] [place] [address] [place] RBC (Bld) [#/Vol] 2.45 10*6/uL Low 4.20-6.00 [facility] Comment on above: Order Comment: Speci men Type: BLOOD SPECIMENOrdering Facility: [facility] Address: [address] [place] [address] Performed By: #### 5 7021-8 ####[facility] HOSPITALTOWNCLIA [id number] [place] [address] [place] WBC (Bld) [#/Vol] 5.85 10*3/uL Normal 3.70-11.00 [facility] Comment on above: Order Comment: Speci men Type: BLOOD SPECIMENOrdering Facility: [facility] Address: [facility] [place] [address] Performed By: #### 5 7021-8 ####[facility] JONHWNCLIA [id number] [place] [address] [place] CNOVSPon 10-11-2024 CNOVSP Normal [facility] CNPNon 10-10-2024 CNPN Normal [facility] CNPTOUTREACHon 10-03-2024 CNPTOUTREACH Normal [facility] CNOVon 09-27-2024 [facility] SR[facility] LU[facility] ([id number]) 1935 M Date Time Provider Department 09/27/24 11:00 AM IRAM [facility]OHNSON [facility] During your visit today, we recorded the following information about you: Pulse Blood pressure Weight Height 62/minute 116/58 78 kg 1.702 m Iram Johnson, TOOL ROOM SUPERVISOR.TUMOR REGISTRAR 09/27/2024 11:13 AM Signed [facility] Ronaldo Pleitez MD SUBJECTIVE: Srini Luis [...] disorder 08/25/2022 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 ([facility] 08/22/2022 Pontine infarction, 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 deficiency 07/11/2020 Benign hypertension 08/14/2021 CAD (coronary artery disease) CHB (complete heart block) ([facility]) 09/17/2022 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; Confirmed Blk below His by His Bundle Electrogram Chronic atrial fibrillation ([facility]) Chronic heart failure with preserved ejection fraction ([facility]) 07/29/2024 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 ([facility]) 12/01/2022 CVA (cerebral vascular accident) ([facility]) 08/22/2022 Diverticulosis History of anemia 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 ARTHROPLASTY TOTAL SHOULDER 11/09/2008 right ARTHROSCOPY OF JOINT UNLISTED 2000 Elbow right CABG (4) VEIN GRAFTS AND ARTERIAL GRAFT(S) 07/21/[address] [facility] COLONOSCOPY FLX DX W/COLLJ SPEC WHEN PFRMD [...] daily. polye (more content not included)... Normal [facility] JANELLESRINI ([id number]) 1935 M Date Time Provider Department 09/27/24 10:30 AM [facility] [address] During your visit today, we recorded the following information about you: Israel Minor MD 10/06/2024 5:16 PM Signed Dual Pacer Report In Office Check Date: September 27, 2024 Time: 10:32 AM Devices: Implants Lead Ra Lead Biotronik-09/17/2022 - Implanted Heart Model/Cat number: ADAIR Pena [id number] Serial number: [id number] Anodic Operator: [employer] Virtual Lot number: LEFT AXILLARY VEIN Size: Right Atrial Pacing Lead Rv Lead Biotronik-09/17/2022 - Implanted Heart Model/Cat number: ADAIR Pena [id number] Serial number: [id number] Anodic Operator: [employer] Virtual Lot number: LEFT CEPHALIC VEIN Size: Right Ventricular Pacing Lead Pacemaker Dual Pacer Biotronik-09/17/2022 - Implanted (Left) Chest Wall Model/Cat number: EDORA [id number] Serial number: [id number] Anodic Operator: [employer] Virtual Lot number: INITIAL DUAL PACER IMPLANT. Size: [...] and provider appointment. View External Cardiology - Car Retarder Operator Strips [ID [id number]] Allergies As of Date: 09/27/2024 Noted Allergy [...] managed by this patient by: DAUGHTER Ten Rodriguezlila, [facility] Problem List As Of Date 09/27/2024 Noted [...] Insomnia [G47.00] 08/13/2010 (more content not included)... [facility] Parmjit 09-27-2024 C[facility]N [facility] SRINI LUIS ([id number]) 1935 Robyn Date Time Provider Department 09/27/24 [facility] During your visit today, we recorded the following information about you: Shilpa Abraham MA 09/27/2024 4:03 PM Signed Ref #[id number] Patient needs a Peer to Peer for his Stress Test. The number is [phone]. Iram Johnson APRN.MAURICIO 09/30/2024 8:24 AM Signed Apparently the patient does not need a peer to peer, the reference number is the approval number for the stress test. It is good from 09-27-2024-12/25/2024. Shilpa Abraham MA 09/30/2024 2:52 PM Addendum Spoke with Zaria at [facility]. Patients Stress Test is scheduled for 6:45 am at [facility] on 10/12/24. Spoke with patients daughter Liza and Grand Saline Brandyn. Both parties are aware of the date, time and instructions. Order was faxed ([phone]) to [facility]. 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 Normal [facility] CBC W Auto Differential pane l (Bld)on 09-22-2024 Basophils (Bld) [#/Vol] 0.05 10*3/uL Normal <0.11 [facility] Comment on above: Order Comment: Speci men Type: BLOOD SPECIMENOrdering Facility: [facility] Address: [address] [place] [address] Performed By: #### 5 7021-8 ####[facility] MILLWLALIA [id number] [place] [address] [place] Basophils/100 WBC (Bld) 0.9 % Normal [facility] Comment on above: Order Comment: Speci men Type: BLOOD SPECIMENOrdering Facility: [facility] Address: [address] [place] [address] Performed By: #### 5 7021-8 ####[facility] [id number] [place] [address] [place] Differential cell count method Nom (Bld) Auto Normal [facility] Comment on above: Order Comment: Speci men Type: BLOOD SPECIMENOrdering Facility: [facility] Address: [address] [place] [address] Performed By: #### 5 7021-8 ####[facility] [id number] [place] [address] [place] Eosinophils (Bld) [#/Vol] 0.14 10*3/uL Normal <0.46 [facility] Comment on above: Order Comment: Speci men Type: BLOOD SPECIMENOrdering Facility: [facility] Address: [address] [place] [address] Performed By: #### 5 7021-8 ####[facility] [id number] [place] [address] [place] Eosinophils/100 WBC (Bld) 2.6 % Normal [facility] Comment on above: Order Comment: Speci men Type: BLOOD SPECIMENOrdering Facility: [facility] Address: [address] [place] [address] Performed By: #### 5 7021-8 ####[facility] HOSPITALNCLIA [id number] [place] [address] [place] Erythrocyte distribution width (RBC) [Ratio] 19.1 % High 11.5-15.0 [facility] Comment on above: Order Comment: Speci men Type: BLOOD SPECIMENOrdering Facility: [facility] Address: [address] [place] [address] Performed By: #### 5 7021-8 ####[facility] HOSPITALNCOGDEN [facility] [id number] [place] [address] [place] Hematocrit (Bld) [Volume fraction] 26.3 % Low 39.0-51.0 [facility] Comment on above: Order Comment: Speci men Type: BLOOD SPECIMENOrdering Facility: [facility] Address: [address] [place] [address] Performed By: #### 5 7021-8 ####[facility] [id number] [place] [address] [place] Hemoglobin (Bld) [Mass/Vol] 8.7 g/dL Low 13.0-17.0 [facility] Comment on above: Order Comment: Speci men Type: BLOOD SPECIMENOrdering Facility: [facility] Address: [address] [place] [address] Performed By: #### 5 7021-8 ####[facility] CENTERLIA [id number] [place] [address] [place] Immature granulocytes (Bld) [#/Vol] 10*3/uL Normal <0.10 [facility] Comment on above: Order Comment: Speci men Type: BLOOD SPECIMENOrdering Facility: [facility] Address: [address] [place] [address] Performed By: #### 5 7021-8 ####[facility] [id number] [place] [address] [place] Immature granulocytes/100 WBC (Bld) 0.4 % Normal [facility] Comment on above: Order Comment: Speci men Type: BLOOD SPECIMENOrdering Facility: [facility] Address: [address] [place] [address] Performed By: #### 5 7021-8 ####[facility] [id number] [place] [address] [place] Lymphocytes (Bld) [#/Vol] 1.15 10*3/uL Normal 1.00-4.00 [facility] Comment on above: Order Comment: Speci men Type: BLOOD SPECIMENOrdering Facility: [facility] Address: [address] [place] [address] Performed By: #### 5 7021-8 ####[facility] [id number] [place] [address] [place] Lymphocytes/100 WBC (Bld) 21.0 % Normal [facility] Comment on above: Order Comment: Speci men Type: BLOOD SPECIMENOrdering Facility: [facility] Address: [address] [place] [address] Performed By: #### 5 7021-8 ####[facility] [id number] [place] [address] [place] MCH (RBC) [Entitic mass] 37.3 pg High 26.0-34.0 [facility] Comment on above: Order Comment: Speci men Type: BLOOD SPECIMENOrdering Facility: [facility] Address: [address] [place] [address] Performed By: #### 5 7021-8 ####[facility] [id number] [place] [address] [place] MCHC (RBC) [Mass/Vol] 33.1 g/dL Normal 30.5-36.0 [facility] Comment on above: Order Comment: Speci men Type: BLOOD SPECIMENOrdering Facility: [facility] Address: [address] [place] [address] Performed By: #### 5 7021-8 ####[facility] HOSPITALNCOGDEN REG[facility] [id number] [place] [address] [place] MCV (RBC) [Entitic vol] 112.9 fL High 80.0-100.0 [facility] Comment on above: Order Comment: Speci men Type: BLOOD SPECIMENOrdering Facility: [facility] Address: [address] [place] [address] Performed By: #### 5 7021-8 ####[facility] HOSPITALNCOGDEN REG[facility] [id number] [place] [address] [place] Monocytes (Bld) [#/Vol] 0.70 10*3/uL Normal <0.87 [facility] Comment on above: Order Comment: Speci men Type: BLOOD SPECIMENOrdering Facility: [facility] Address: [address] [place] [address] Performed By: #### 5 7021-8 ####[facility] HOSPITALNCA [id number] [place] [address] [place] Monocytes/100 WBC (Bld) 12.8 % Normal [facility] Comment on above: Order Comment: Speci men Type: BLOOD SPECIMENOrdering Facility: [facility] Address: [address] [place] [address] Performed By: #### 5 7021-8 ####[facility]PITALNCOGD[facility] [id number] [place] [address] [place] Neutrophils (Bld) [#/Vol] 3.42 10*3/uL Normal 1.45-7.50 [facility] Comment on above: Order Comment: Speci men Type: BLOOD SPECIMENOrdering Facility: [facility] Address: [address] [place] [address] Performed By: #### 5 7021-8 ####[facility] JONHCHARLOTTENCLIA [id number] [place] [address] [place] Neutrophils/100 WBC (Bld) 62.3 % Normal [facility] Comment on above: Order Comment: Speci men Type: BLOOD SPECIMENOrdering Facility: [facility] Address: [address] [place] [address] Performed By: #### 5 7021-8 ####[facility] HOSPITALNCLIA [id number] [place] [address] [place] Nucleated RBC (Bld) [#/Vol] 0.05 10*3/uL High <0.01 [facility] Comment on above: Order Comment: Speci men Type: BLOOD SPECIMENOrdering Facility: [facility] Address: [address] [place] [address] Performed By: #### 5 7021-8 ####[facility] HOSPITALNCLIA [id number] [place] [address] [place] Nucleated RBC/100 WBC (Bld) [Ratio] 0.9 /100 WBC Normal [facility] Comment on above: Order Comment: Speci men Type: BLOOD SPECIMENOrdering Facility: [facility] Address: [address] [place] [address] Performed By: #### 5 7021-8 ####[facility] CENTERLIA [id number] [place] [address] [place] Platelet mean volume (Bld) [Entitic vol] 11.9 fL Normal 9.0-12.7 [facility] Comment on above: Order Comment: Speci men Type: BLOOD SPECIMENOrdering Facility: [facility] Address: [address] [place] [address] Performed By: #### 5 7021-8 ####[facility]PITALNCOGD[facility] [id number] [place] [address] [place] Platelets (Bld) [#/Vol] 235 10*3/uL Normal 150-400 [facility] Comment on above: Order Comment: Speci men Type: BLOOD SPECIMENOrdering Facility: [facility] Address: [address] [place] [address] Performed By: #### 5 7021-8 ####[facility] HOSPITALNCA [id number] [place] [address] [place] RBC (Bld) [#/Vol] 2.33 10*6/uL Low 4.20-6.00 [facility] Comment on above: Order Comment: Speci men Type: BLOOD SPECIMENOrdering Facility: [facility] Address: [address] [place] [address] Performed By: #### 5 7021-8 ####[facility] [id number] [place] [address] [place] WBC (Bld) [#/Vol] 5.48 10*3/uL Normal 3.70-11.00 [facility] Comment on above: Order Comment: Speci men Type: BLOOD SPECIMENOrdering Facility: [facility] Address: [address] [place] [address] Performed By: #### 5 7021-8 ####[facility] HOSPITALNCLIA [id number] [place] [address] [place] Vit B12 SerPl-ncon 11-14-2 024 Cobalamin (Vitamin B12) [Mass/Vol] 754 pg/mL Normal 232-1245 [facility] Comment on above: Order Comment: Speci men Type: BLOOD SPECIMENOrdering Facility: [facility] Address: [address] [place] [address] Performed By: #### 2 132-9 ####[facility] LABCLIA [id number] [address] [address] [place] CBC W Auto Differential pane l (Bld)on 09-15-2024 Basophils (Bld) [#/Vol] 0.05 10*3/uL Normal <0.11 [facility] Comment on above: Order Comment: Speci men Type: BLOOD SPECIMENOrdering Facility: [facility] Address: [address] [place] [address] Performed By: #### 5 7021-8 ####[facility] CENTERLIA [id number] [place] [address] [place] Basophils/100 WBC (Bld) 0.9 % Normal [facility] Comment on above: Order Comment: Speci men Type: BLOOD SPECIMENOrdering Facility: [facility] Address: [address] [place] [address] Performed By: #### 5 7021-8 ####[facility] [id number] [place] [address] [place] Differential cell count method Nom (Bld) Auto Normal [facility] Comment on above: Order Comment: Speci men Type: BLOOD SPECIMENOrdering Facility: [facility] Address: [address] [place] [address] Performed By: #### 5 7021-8 ####[facility] CENTERLIA [id number] [place] [address] [place] Eosinophils (Bld) [#/Vol] 0.09 10*3/uL Normal <0.46 [facility] Comment on above: Order Comment: Speci men Type: BLOOD SPECIMENOrdering Facility: [facility] Address: [address] [place] [address] Performed By: #### 5 7021-8 ####[facility] CENTERLIA [id number] [place] [address] [place] Eosinophils/100 WBC (Bld) 1.7 % Normal [facility] Comment on above: Order Comment: Speci men Type: BLOOD SPECIMENOrdering Facility: [facility] Address: [address] [place] [address] Performed By: #### 5 7021-8 ####[facility] RUBENNCCONSTANCEA [id number] [place] [address] [place] Erythrocyte distribution width (RBC) [Ratio] 18.6 % High 11.5-15.0 [facility] Comment on above: Order Comment: Speci men Type: BLOOD SPECIMENOrdering Facility: [facility] Address: [address] [place] [address] Performed By: #### 5 7021-8 ####[facility] JONHCHARLOTTENCLIA [id number] [place] [address] [place] Hematocrit (Bld) [Volume fraction] 25.6 % Low 39.0-51.0 [facility] Comment on above: Order Comment: Speci men Type: BLOOD SPECIMENOrdering Facility: [facility] Address: [address] [place] [address] Performed By: #### 5 7021-8 ####[facility] JONHCHARLOTTENCLIA [id number] [place] [address] [place] Hemoglobin (Bld) [Mass/Vol] 8.5 g/dL Low 13.0-17.0 [facility] Comment on above: Order Comment: Speci men Type: BLOOD SPECIMENOrdering Facility: [facility] Address: [address] [place] [address] Performed By: #### 5 7021-8 ####[facility] HOSPITALNCLIA [id number] [place] [address] [place] Immature granulocytes (Bld) [#/Vol] 0.03 10*3/uL Normal <0.10 [facility] Comment on above: Order Comment: Speci men Type: BLOOD SPECIMENOrdering Facility: [facility] Address: [address] [place] [address] Performed By: #### 5 7021-8 ####[facility] HOSPITALNCLIA [id number] [place] [address] [place] [facility] Immature granulocytes/100 WBC (Bld) 0.6 % Normal [facility] Comment on above: Order Comment: Speci men Type: BLOOD SPECIMENOrdering Facility: [facility] Address: [address] [place] [address] Performed By: #### 5 7021-8 ####[facility] HOSPITALROBERTLIA [id number] [place] [address] [place] Lymphocytes (Bld) [#/Vol] 1.11 10*3/uL Normal 1.00-4.00 [facility] Comment on above: Order Comment: Speci men Type: BLOOD SPECIMENOrdering Facility: [facility] Address: [address] [place] [address] Performed By: #### 5 7021-8 ####[facility] [id number] [place] [address] [place] Lymphocytes/100 WBC (Bld) 20.9 % Normal [facility] Comment on above: Order Comment: Speci men Type: BLOOD SPECIMENOrdering Facility: [facility] Address: [address] [place] [address] Performed By: #### 5 7021-8 ####[facility] HOSPITALKOSTAA [id number] [place] [address] [place] MCH (RBC) [Entitic mass] 37.1 pg High 26.0-34.0 [facility] Comment on above: Order Comment: Speci men Type: BLOOD SPECIMENOrdering Facility: [facility] Address: [address] [place] [address] Performed By: #### 5 7021-8 ####[facility]ITALNCO[facility] [id number] [place] [id number] [place] MCHC (RBC) [Mass/Vol] 33.2 g/dL Normal 30.5-36.0 [facility] Comment on above: Order Comment: Speci men Type: BLOOD SPECIMENOrdering Facility: [facility] Address: [address] [place] [address] Performed By: #### 5 7021-8 ####[facility] JONHCHARLOTTEKOSTAA [id number] [place] [address] [place] MCV (RBC) [Entitic vol] 111.8 fL High 80.0-100.0 [facility] Comment on above: Order Comment: Speci men Type: BLOOD SPECIMENOrdering Facility: [facility] Address: [address] [place] [address] Performed By: #### 5 7021-8 ####[facility] HOSPITALMALENA [id number] [place] [address] [place] Monocytes (Bld) [#/Vol] 0.68 10*3/uL Normal <0.87 [facility] Comment on above: Order Comment: Speci men Type: BLOOD SPECIMENOrdering Facility: [facility] Address: [address] [place] [address] Performed By: #### 5 7021-8 ####[facility] HOSPITALKOSTAA [id number] [place] [address] [place] Monocytes/100 WBC (Bld) 12.8 % Normal [facility] Comment on above: Order Comment: Speci men Type: BLOOD SPECIMENOrdering Facility: [facility] Address: [address] [place] [address] Performed By: #### 5 7021-8 ####[facility] HOSPITALNCLIA [id number] [place] [address] [place] Neutrophils (Bld) [#/Vol] 3.36 10*3/uL Normal 1.45-7.50 [facility] Comment on above: Order Comment: Speci men Type: BLOOD SPECIMENOrdering Facility: [facility] Address: [address] [place] [address] Performed By: #### 5 7021-8 ####[facility] JONHCHARLOTTENCCONSTANCE [id number] [place] [address] [place] Neutrophils/100 WBC (Bld) 63.1 % Normal [facility] Comment on above: Order Comment: Speci men Type: BLOOD SPECIMENOrdering Facility: [facility] Address: [address] [place] [address] Performed By: #### 5 7021-8 ####[facility]ITALNCO[facility] [id number] [place] [address] [place] Nucleated RBC (Bld) [#/Vol] 0.05 10*3/uL High <0.01 [facility] Comment on above: Order Comment: Speci men Type: BLOOD SPECIMENOrdering Facility: [facility] Address: [address] [place] [address] Performed By: #### 5 7021-8 ####[facility] [id number] [place] [address] [place] Nucleated RBC/100 WBC (Bld) [Ratio] 0.9 /100 WBC Normal [facility] Comment on above: Order Comment: Speci men Type: BLOOD SPECIMENOrdering Facility: [facility] Address: [address] [place] [address] Performed By: #### 5 7021-8 ####[facility] [id number] [place] [address] [place] Platelet mean volume (Bld) [Entitic vol] 10.9 fL Normal 9.0-12.7 [facility] Comment on above: Order Comment: Speci men Type: BLOOD SPECIMENOrdering Facility: [facility] Address: [address] [place] [address] Performed By: #### 5 7021-8 ####[facility] JONHCHARLOTTENCLIA [id number] [place] [address] [place] Platelets (Bld) [#/Vol] 261 10*3/uL Normal 150-400 [facility] Comment on above: Order Comment: Speci men Type: BLOOD SPECIMENOrdering Facility: [facility] Address: [address] [place], [place] [address] Performed By: #### 5 7021-8 ####[facility] JONHCHARLOTTENCLIA [id number] [place] [address] [place] RBC (Bld) [#/Vol] 2.29 10*6/uL Low 4.20-6.00 [facility] Comment on above: Order Comment: Speci men Type: BLOOD SPECIMENOrdering Facility: [facility] Address: [address] [place], [place] [address] Performed By: #### 5 7021-8 ####[facility] HOSPITALNCLIA [id number] [place] [address] [place] WBC (Bld) [#/Vol] 5.32 10*3/uL Normal 3.70-11.00 [facility] Comment on above: Order Comment: Speci men Type: BLOOD SPECIMENOrdering Facility: [facility] Address: [address] [place], [place] [address] Performed By: #### 5 7021-8 ####[facility] HOSPITALNCLIA [id number] [place] [address] [place] CNOVSPon 09-15-2024 CNOVSP Normal [facility] CNPNon 09-15-2024 CNPN Normal [facility] Comprehensive metabolic 2000 panelon 09-15-2024 Albumin [Mass/Vol] 4.1 g/dL Normal 3.9-4.9 [facility] Comment on above: Order Comment: Speci men Type: BLOOD SPECIMENOrdering Facility: [facility] Address: [address] [place] [address] Performed By: #### 2 4323-8 ####[facility] MILLTOWNCLIA [id number] [place] [address] [place] ALP [Catalytic activity/Vol] 81 U/L Normal 38-113 [facility] Comment on above: Order Comment: Speci men Type: BLOOD SPECIMENOrdering Facility: [facility] Address: [address] [place] [address] Performed By: #### 2 4323-8 ####[facility] MILLTOWNCLIA [id number] [place] [address] [place] ALT [Catalytic activity/Vol] 14 U/L Normal 10-54 [facility] Comment on above: Order Comment: Speci men Type: BLOOD SPECIMENOrdering Facility: [facility] Address: [address] [place] [address] Performed By: #### 2 4323-8 ####[facility] MILLWNCLIA [id number] [place] [address] [place] Anion gap [Moles/Vol] 9 mmol/L Normal 8-15 [facility] Comment on above: Order Comment: Speci men Type: BLOOD SPECIMENOrdering Facility: [facility] Address: [address] [place] [address] Performed By: #### 2 4323-8 ####[facility] MILLTOWNCLIA [id number] [place] [address] [place] AST [Catalytic activity/Vol] 23 U/L Normal 14-40 [facility] Comment on above: Order Comment: Speci men Type: BLOOD SPECIMENOrdering Facility: [facility] Address: [address] [place] [address] Performed By: #### 2 4323-8 ####[facility] MILLTOWNCLIA [id number] [place] [address] [place] Bilirubin [Mass/Vol] 1.5 mg/dL High 0.2-1.3 [facility] Comment on above: Order Comment: Speci men Type: BLOOD SPECIMENOrdering Facility: [facility] Address: [address] [place] [address] Performed By: #### 2 4323-8 ####[facility] MILLWNCLIA [id number] [place] [address] [place] Calcium [Mass/Vol] 9.1 mg/dL Normal 8.5-10.2 [facility] Comment on above: Order Comment: Speci men Type: BLOOD SPECIMENOrdering Facility: [facility] Address: [address] [place] [address] Performed By: #### 2 4323-8 ####[facility] HOSPITALNCLIA [id number] [place] [address] [place] Chloride [Moles/Vol] 100 mmol/L Normal 98-107 [facility] Comment on above: Order Comment: Speci men Type: BLOOD SPECIMENOrdering Facility: [facility] Address: [address] [place] [address] Performed By: #### 2 4323-8 ####[facility] HOSPITALNCLIA [id number] [place] [address] [place] CO2 [Moles/Vol] 27 mmol/L Normal 22-30 [facility] Comment on above: Order Comment: Speci men Type: BLOOD SPECIMENOrdering Facility: [facility] Address: [address] [place] [address] Performed By: #### 2 4323-8 ####[facility] HOSPITALNCLIA [id number] [place] [address] [place] Creatinine [Mass/Vol] 1.02 mg/dL Normal 0.73-1.22 [facility] Comment on above: Order Comment: Speci men Type: BLOOD SPECIMENOrdering Facility: [facility] Address: [address] [place] [address] Performed By: #### 2 4323-8 ####[facility] [id number] [place] [address] [place] Creatinine and Glomerular filtration rate.predicted panel (S/P/Bld) 71 mL/min/1.73m??? Normal >=60 [facility] Comment on above: Order Comment: Elfego gilbert Type: BLOOD SPECIMENOrdering Facility: [facility] Address: [address] [place] [address] Result Comment: Concepción mated Glomerular Filtration Rate [...] actual GFR. Performed By: #### 2 4323-8 ####[facility] [id number] [place] [address] [place] Glucose [Mass/Vol] 94 mg/dL Normal 74-99 [facility] Comment on above: Order Comment: Elfego gilbert Type: BLOOD SPECIMENOrdering Facility: [facility] Address: [address] [place] [address] Result Comment: The [place] Diabetes [employer] (ADA) provides guidance for cutoff [...] Standards of Medical Care in Diabetes 2016, [place] [employer]. Diabetes Care. 2016.39(Suppl 1). Performed By: #### 2 4323-8 ####[facility] MILLTOWNCLIA [id number] [place] [address] [place] Potassium [Moles/Vol] 4.4 mmol/L Normal 3.7-5.1 [facility] Comment on above: Order Comment: Speci men Type: BLOOD SPECIMENOrdering Facility: [facility] Address: [address] [place] [address] Performed By: #### 2 4323-8 ####[facility] MILLTOWNCLIA [id number] [place] [address] [place] Protein [Mass/Vol] 6.4 g/dL Normal 6.3-8.0 [facility] Comment on above: Order Comment: Speci men Type: BLOOD SPECIMENOrdering Facility: [facility] Address: [address] [place] [address] Performed By: #### 2 4323-8 ####[facility] HOSPITALNCLIA [id number] [place] [address] [place] Sodium [Moles/Vol] 136 mmol/L Normal 136-144 [facility] Comment on above: Order Comment: Speci men Type: BLOOD SPECIMENOrdering Facility: [facility] Address: [address] [place] [address] Performed By: #### 2 4323-8 ####[facility] MILLTOWNCLIA [id number] [place] [address] [place] Urea nitrogen [Mass/Vol] 24 mg/dL Normal 9-24 [facility] Comment on above: Order Comment: Speci men Type: BLOOD SPECIMENOrdering Facility: [facility] Address: [address] [place] [address] Performed By: #### 2 4323-8 ####[facility] MILLTOWNCLIA [id number] [place] [address] [place] Ferritin SerPl-ncon 2023 Ferritin [Mass/Vol] 453.0 ng/mL Normal 30.3-565.7 [facility] Comment on above: Order Comment: Speci men Type: BLOOD SPECIMENOrdering Facility: [facility] Address: [address] [place] [address] Performed By: #### 5 0190-8, 2276-02 ####[facility] LABCLIA [id number] [place] [address] [place]#### 35257-7 ####[facility] LABCLIA [id number] [address] STATES OF [facility] [id number] [place] [address] [place] Iron and Iron binding capaci panelon 09-15-2024 Iron [Mass/Vol] 134 ug/dL Normal 41-186 [facility] Comment on above: Order Comment: Speci men Type: BLOOD SPECIMENOrdering Facility: [facility] Address: [address] [place] [address] Performed By: #### 5 0190-8, 2276-02 ####[facility] LABCLIA [id number] [place] [address] [place]#### 46893-4 ####[facility] LABCLIA [id number] [address] STATES OF [facility] [id number] [place] [address] [place] Iron binding capacity [Mass/Vol] 166 ug/dL Low 232-386 [facility] Comment on above: Order Comment: Speci men Type: BLOOD SPECIMENOrdering Facility: [facility] Address: [address] [place] [address] Performed By: #### 5 0190-8, 2276-02 ####[facility] LABCLIA [id number] [place] [address] [place]#### 65199-2 ####[facility] LABCLIA [id number] [address] [id number] [place] [address] [place] Iron/TIBC [Molar ratio] 80.7 % High 15.0-57.0 [facility] Comment on above: Order Comment: Speci men Type: BLOOD SPECIMENOrdering Facility: [facility] Address: [address] [place] [address] Performed By: #### 5 0190-8, 2276-02 ####[facility] LABCLIA [id number] [place] [address] [place]#### 97893-0 ####[facility] LABCLIA [id number] [address] [id number] [place] [address] [place] Lipid 1996 panelon 4 Cholesterol [Mass/Vol] 86 mg/dL Normal <200 [facility] Comment on above: Order Comment: Speci men Type: BLOOD SPECIMENOrdering Facility: [facility] Address: [address] [place] [address] Result Comment: <200 mg/dL, Desirable 200-239 mg/dL, Borderline high>239 mg/dL, High Performed By: #### 5 0190-8, 2276-02 ####[facility] LABCLIA [id number] [place] [address] [place]#### 55602-8 ####[facility] LABCLIA [id number] [address] [id number] [place] [address] [place] Cholesterol in HDL [Mass/Vol] 53 mg/dL Normal >39 [facility] Comment on above: Order Comment: Speci men Type: BLOOD SPECIMENOrdering Facility: [facility] Address: [address] [place] [address] Result Comment: 40-5 9 mg/dL, Acceptable>59 mg/dL, High: Negative risk factor for coronary heart disease<40 mg/dL, Low: Positive risk factor for coronary heart disease Performed By: #### 5 0190-8, 2275- ####[facility] LABCLIA [id number] [place] [address] [place]#### 86408-5 ####[facility] LABCLIA [id number] [place] [address] [place] [facility] [id number] [place] [address] [place] Cholesterol in LDL [Mass/Vol] 26 mg/dL Normal <100 [facility] Comment on above: Order Comment: Speci men Type: BLOOD SPECIMENOrdering Facility: [facility] Address: [address] [place] [address] Result Comment: <100 mg/dL, Optimal 100-129 mg/dL, Near optimal/above optimal 130-159 mg/dL, Borderline high 160-189 mg/dL, High>189 mg/dL, Very highSecondary prevention optimal LDL Cholesterol levels are recommended to be < 70 mg/dL Performed By: #### 5 0190-8, 2275-4 ####[facility] LABCLIA [id number] [place] [address] [place]#### 53089-8 ####[facility] LABCLIA [id number] [address] [id number] [address] [place] Cholesterol in LDL/Cholesterol in HDL [Mass ratio] 0.49 {ratio} Normal <2.54 [facility] Comment on above: Order Comment: Speci men Type: BLOOD SPECIMENOrdering Facility: [facility] Address: [facility] [place] [address] Result Comment: Katie barrientos:1. National Cholesterol Education Program ATP III Guideline At-A-Glance Quick Desk Reference: National Heart, Lung, and Blood [place]. National Institutes of Health. 2001: NIH Publication No. 01-3305.2. An International Atherosclerosis Society position paper: global recommendations for the management of dyslipidemia: executive summary, Atherosclerosis. 2014: 232(2):410-413. Performed By: #### 5 0190-8, 2276-02 ####[facility] LABCLIA [id number] [place] [address] [place]#### 84474-6 ####[facility] LABCLIA [id number] [address] [id number] [place] [address] [place] Cholesterol in VLDL [Mass/Vol] 7 mg/dL Normal <30 [facility] Comment on above: Order Comment: Speci men Type: BLOOD SPECIMENOrdering Facility: [facility] Address: [address] [place] [address] Performed By: #### 5 0190-8, 2276-02 ####[facility] LABCLIA [id number] [place] [address] [place]#### 50712-0 ####[facility] LABCLIA [id number] [address] STATES OF [facility] [id number] [place] [address] [place] Cholesterol non HDL [Mass/Vol] 33 mg/dL Normal <130 [facility] Comment on above: Order Comment: Speci men Type: BLOOD SPECIMENOrdering Facility: [facility] Address: [address] [place] [address] Result Comment: <130 mg/dL, Optimal 130-159 mg/dL, Near optimal/above optimal 160-189 mg/dL, Borderline high 190-219 mg/dL, High>219 mg/dL, Very highSecondary prevention optimal non HDL Cholesterol levels are recommended to be <100 mg/dL Performed By: #### 5 0190-8, 2275-4 ####[facility] LABCLIA [id number] [place] [address] [place]#### 23923-0 ####[facility] LABCLIA [id number] [place] [address] [place] [facility] [id number] [place] [address] [place] Cholesterol.total/Chol esterol in HDL [Mass ratio] 1.62 {ratio} Normal <5.10 [facility] Comment on above: Order Comment: Speci men Type: BLOOD SPECIMENOrdering Facility: [facility] Address: [address] [place] [address] Performed By: #### 5 0190-8, 2275- ####[facility] LABCLIA [id number] [place] [address] [place]#### 09206-3 ####[facility] LABCLIA [id number] [place] [address] [place] [facility] [id number] [place] [address] [place] FASTING TIME 12 hrs Normal [facility] Comment on above: Order Comment: Speci men Type: BLOOD SPECIMENOrdering Facility: [facility] Address: [address] [place] [address] Performed By: #### 5 0190-8, 2275-4 ####[facility] LABCLIA [id number] [place] [address] [place]#### 93627-9 ####[facility] LABCLIA [id number] [place] [address] [place] [facility] [id number] [place] [address] [place] Triglyceride [Mass/Vol] 33 mg/dL Normal <150 [facility] Comment on above: Order Comment: Speci men Type: BLOOD SPECIMENOrdering Facility: [facility] Address: [address] [place] [address] Result Comment: <150 mg/dL, Normal 150-199 mg/dL, Borderline high 200-499 mg/dL, High>499 mg/dL, Very high Performed By: #### 5 0190-8, 2276-02 ####[facility] LABCLIA [id number] [place] [address] [place]#### 50612-2 ####[facility] LABCLIA [id number] [place] [address] [place] [facility] [id number] [place] [address] [place] CNPTOUTREACHon 08-30-2024 CNPTOUTREACH Normal [facility] CNPNon 08-24-2024 CNPN Normal [facility] CBC W Auto Differential pane l (Bld)on 08-22-2024 Basophils (Bld) [#/Vol] 0.05 10*3/uL Normal <0.11 [facility] Comment on above: Order Comment: Speci men Type: BLOOD SPECIMENOrdering Facility: [facility] Address: [address] [place] [address] Performed By: #### 5 7021-8 ####[facility] MILLWNCLIA [id number] [place] [address] [place] Basophils/100 WBC (Bld) 0.9 % Normal [facility] Comment on above: Order Comment: Speci men Type: BLOOD SPECIMENOrdering Facility: [facility] Address: [address] [place] [address] Performed By: #### 5 7021-8 ####[facility] HOSPITALNCLIA [id number] [place] [address] [place] Differential cell count method Nom (Bld) Auto Normal [facility] Comment on above: Order Comment: Speci men Type: BLOOD SPECIMENOrdering Facility: [facility] Address: [address] [place] [address] Performed By: #### 5 7021-8 ####[facility] HOSPITALWNCLIA [id number] [place] [address] [place] Eosinophils (Bld) [#/Vol] 0.19 10*3/uL Normal <0.46 [facility] Comment on above: Order Comment: Speci men Type: BLOOD SPECIMENOrdering Facility: [facility] Address: [address] [place] [address] Performed By: #### 5 7021-8 ####[facility] MILLTOWNCLIA [id number] [place] [address] [place] Eosinophils/100 WBC (Bld) 3.3 % Normal [facility] Comment on above: Order Comment: Speci men Type: BLOOD SPECIMENOrdering Facility: [facility] Address: [address] [place] [address] Performed By: #### 5 7021-8 ####[facility] MILLWNCLIA [id number] [place] [address] [place] Erythrocyte distribution width (RBC) [Ratio] 17.2 % High 11.5-15.0 [facility] Comment on above: Order Comment: Speci men Type: BLOOD SPECIMENOrdering Facility: [facility] Address: [address] [place] [address] Performed By: #### 5 7021-8 ####[facility] HOSPITALMALENA [id number] [place] [address] [place] Hematocrit (Bld) [Volume fraction] 26.6 % Low 39.0-51.0 [facility] Comment on above: Order Comment: Speci men Type: BLOOD SPECIMENOrdering Facility: [facility] Address: [address] [place] [address] Performed By: #### 5 7021-8 ####[facility] HOSPITALMALENA [id number] [place] [address] [place] Hemoglobin (Bld) [Mass/Vol] 9.0 g/dL Low 13.0-17.0 [facility] Comment on above: Order Comment: Speci men Type: BLOOD SPECIMENOrdering Facility: [facility] Address: [address] [place] [address] Performed By: #### 5 7021-8 ####[facility] H[facility]PITALMALENA [id number] [place] [address] [place] Immature granulocytes (Bld) [#/Vol] 10*3/uL Normal <0.10 [facility] Comment on above: Order Comment: Speci men Type: BLOOD SPECIMENOrdering Facility: [facility] Address: [address] [place] [address] Performed By: #### 5 7021-8 ####[facility] H[facility]PITALNCLIA [id number] [place] [address] [place] Immature granulocytes/100 WBC (Bld) 0.2 % Normal [facility] Comment on above: Order Comment: Speci men Type: BLOOD SPECIMENOrdering Facility: [facility] Address: [address] [place] [address] Performed By: #### 5 7021-8 ####[facility] JONHCHARLOTTENCRADHA [id number] [place] [address] [place] Lymphocytes (Bld) [#/Vol] 1.24 10*3/uL Normal 1.00-4.00 [facility] Comment on above: Order Comment: Speci men Type: BLOOD SPECIMENOrdering Facility: [facility] Address: [address] [place] [address] Performed By: #### 5 7021-8 ####[facility] [id number] [place] [address] [place] Lymphocytes/100 WBC (Bld) 21.8 % Normal [facility] Comment on above: Order Comment: Speci men Type: BLOOD SPECIMENOrdering Facility: [facility] Address: [address] [place] [address] Performed By: #### 5 7021-8 ####[facility] [id number] [place] [address] [place] MCH (RBC) [Entitic mass] 37.5 pg High 26.0-34.0 [facility] Comment on above: Order Comment: Speci men Type: BLOOD SPECIMENOrdering Facility: [facility] Address: [address] [place] [address] Performed By: #### 5 7021-8 ####[facility] HOSPITALNCLIA [id number] [place] [address] [place] MCHC (RBC) [Mass/Vol] 33.8 g/dL Normal 30.5-36.0 [facility] Comment on above: Order Comment: Speci men Type: BLOOD SPECIMENOrdering Facility: [facility] Address: [address] [place] [address] Performed By: #### 5 7021-8 ####[facility] HOSPITALNCLIA [id number] [place] [address] [place] MCV (RBC) [Entitic vol] 110.8 fL High 80.0-100.0 [facility] Comment on above: Order Comment: Speci men Type: BLOOD SPECIMENOrdering Facility: [facility] Address: [address] [place] [address] Performed By: #### 5 7021-8 ####[facility] HOSPITALNCLIA [id number] [place] [address] [place] Monocytes (Bld) [#/Vol] 0.79 10*3/uL Normal <0.87 [facility] Comment on above: Order Comment: Speci men Type: BLOOD SPECIMENOrdering Facility: [facility] Address: [address] [place] [address] Performed By: #### 5 7021-8 ####[facility] H[facility]PITALNCLIA [id number] [place] [address] [place] Monocytes/100 WBC (Bld) 13.9 % Normal [facility] Comment on above: Order Comment: Speci men Type: BLOOD SPECIMENOrdering Facility: [facility] Address: [address] [place] [address] Performed By: #### 5 7021-8 ####[facility]ENTERL[facility] [id number] [place] [address] [place] Neutrophils (Bld) [#/Vol] 3.40 10*3/uL Normal 1.45-7.50 [facility] Comment on above: Order Comment: Speci men Type: BLOOD SPECIMENOrdering Facility: [facility] Address: [address] [place] [address] Performed By: #### 5 7021-8 ####[facility] HOSPITALNCLI [id number] [place] [address] [place] Neutrophils/100 WBC (Bld) 59.9 % Normal [facility] Comment on above: Order Comment: Speci men Type: BLOOD SPECIMENOrdering Facility: [facility] Address: [address] [place] [address] Performed By: #### 5 7021-8 ####[facility] [id number] [place] [address] [place] Nucleated RBC (Bld) [#/Vol] 0.03 10*3/uL High <0.01 [facility] Comment on above: Order Comment: Speci men Type: BLOOD SPECIMENOrdering Facility: [facility] Address: [address] [place] [address] Performed By: #### 5 7021-8 ####[facility] [id number] [place] [address] [place] Nucleated RBC/100 WBC (Bld) [Ratio] 0.5 /100 WBC Normal [facility] Comment on above: Order Comment: Speci men Type: BLOOD SPECIMENOrdering Facility: [facility] Address: [address] [place] [address] Performed By: #### 5 7021-8 ####[facility] [id number] [place] [address] [place] Platelet mean volume (Bld) [Entitic vol] 10.8 fL Normal 9.0-12.7 [facility] Comment on above: Order Comment: Speci men Type: BLOOD SPECIMENOrdering Facility: [facility] Address: [address] [place] [address] Performed By: #### 5 7021-8 ####[facility] HOSPITALNCLI [id number] [place] [address] [place] Platelets (Bld) [#/Vol] 255 10*3/uL Normal 150-400 [facility] Comment on above: Order Comment: Speci men Type: BLOOD SPECIMENOrdering Facility: [facility] Address: [address] [place] [address] Performed By: #### 5 7021-8 ####[facility] RUBENNCLIA [id number] [place] [address] [place] RBC (Bld) [#/Vol] 2.40 10*6/uL Low 4.20-6.00 [facility] Comment on above: Order Comment: Speci men Type: BLOOD SPECIMENOrdering Facility: [facility] Address: [address] [place] [address] Performed By: #### 5 7021-8 ####[facility] JONHWilliamsKOSTAA [id number] [place] [address] [place] WBC (Bld) [#/Vol] 5.68 10*3/uL Normal 3.70-11.00 [facility] Comment on above: Order Comment: Speci men Type: BLOOD SPECIMENOrdering Facility: [facility] Address: [address] [place] [address] Performed By: #### 5 7021-8 ####[facility] JONHWilliamsNCCONSTANCEA [id number] [place] [address] [place] CNPTOUTREACHon 08-02-2024 CNPTOUTREACH Normal [facility] CNOVon 07-29-2024 CNOV Normal [facility] CNPNon 07-22-2024 CNPN Normal [facility] CBC W Auto Differential pane l (Bld)on 07-21-2024 Basophils (Bld) [#/Vol] 0.05 10*3/uL Normal <0.11 [facility] Comment on above: Order Comment: Speci men Type: BLOOD SPECIMENOrdering Facility: [facility] Address: [address] [place] [address] Performed By: #### 5 7021-8 ####[facility]ENTERLIA [id number] [place] [address] [place] Basophils/100 WBC (Bld) 1.0 % Normal [facility] Comment on above: Order Comment: Speci men Type: BLOOD SPECIMENOrdering Facility: [facility] Address: [address] [place] [address] Performed By: #### 5 7021-8 ####[facility] [id number] [place] [address] [place] Differential cell count method Nom (Bld) Auto Normal [facility] Comment on above: Order Comment: Speci men Type: BLOOD SPECIMENOrdering Facility: [facility] Address: [address] [place] [address] Performed By: #### 5 7021-8 ####[facility] [id number] [place] [address] [place] Eosinophils (Bld) [#/Vol] 0.13 10*3/uL Normal <0.46 [facility] Comment on above: Order Comment: Speci men Type: BLOOD SPECIMENOrdering Facility: [facility] Address: [address] [place] [address] Performed By: #### 5 7021-8 ####[facility] [id number] [place] [address] [place] Eosinophils/100 WBC (Bld) 2.6 % Normal [facility] Comment on above: Order Comment: Speci men Type: BLOOD SPECIMENOrdering Facility: [facility] Address: [address] [place] [address] Performed By: #### 5 7021-8 ####[facility] [id number] [place] [address] [place] Erythrocyte distribution width (RBC) [Ratio] 16.0 % High 11.5-15.0 [facility] Comment on above: Order Comment: Speci men Type: BLOOD SPECIMENOrdering Facility: [facility] Address: [address] [place] [address] Performed By: #### 5 7021-8 ####[facility] HASEEB [id number] [place] [address] [place] Hematocrit (Bld) [Volume fraction] 26.2 % Low 39.0-51.0 [facility] Comment on above: Order Comment: Speci men Type: BLOOD SPECIMENOrdering Facility: [facility] Address: [address] [place] [address] Performed By: #### 5 7021-8 ####[facility] HOSPITALNCRADHA [id number] [place] [address] [place] Hemoglobin (Bld) [Mass/Vol] 9.0 g/dL Low 13.0-17.0 [facility] Comment on above: Order Comment: Speci men Type: BLOOD SPECIMENOrdering Facility: [facility] Address: [address] [place] [address] Performed By: #### 5 7021-8 ####[facility] HOSPITALROBERTA [id number] [place] [address] [place] Immature granulocytes (Bld) [#/Vol] 10*3/uL Normal <0.10 [facility] Comment on above: Order Comment: Speci men Type: BLOOD SPECIMENOrdering Facility: [facility] Address: [address] [place] [address] Performed By: #### 5 7021-8 ####[facility] HOSPITALNCLIA [id number] [place] [address] [place] Immature granulocytes/100 WBC (Bld) 0.2 % Normal [facility] Comment on above: Order Comment: Speci men Type: BLOOD SPECIMENOrdering Facility: [facility] Address: [address] [place] [address] Performed By: #### 5 7021-8 ####[facility] HOSPITALWNCLIA [id number] [place] [address] [place] Lymphocytes (Bld) [#/Vol] 1.14 10*3/uL Normal 1.00-4.00 [facility] Comment on above: Order Comment: Speci men Type: BLOOD SPECIMENOrdering Facility: [facility] Address: [address] [place] [address] Performed By: #### 5 7021-8 ####[facility] HOSPITALNCLIA [id number] [place] [address] [place] Lymphocytes/100 WBC (Bld) 22.6 % Normal [facility] Comment on above: Order Comment: Speci men Type: BLOOD SPECIMENOrdering Facility: [facility] Address: [address] [place] [address] Performed By: #### 5 7021-8 ####[facility] HOSPITALNCLI [id number] [place] [address] [place] MCH (RBC) [Entitic mass] 38.6 pg High 26.0-34.0 [facility] Comment on above: Order Comment: Speci men Type: BLOOD SPECIMENOrdering Facility: [facility] Address: [address] [place] [address] Performed By: #### 5 7021-8 ####[facility]ENTERLIA [id number] [place] [address] [place] MCHC (RBC) [Mass/Vol] 34.4 g/dL Normal 30.5-36.0 [facility] Comment on above: Order Comment: Speci men Type: BLOOD SPECIMENOrdering Facility: [facility] Address: [address] [place] [address] Performed By: #### 5 7021-8 ####[facility] HOSPITALNCLI [id number] [place] [address] [place] MCV (RBC) [Entitic vol] 112.4 fL High 80.0-100.0 [facility] Comment on above: Order Comment: Speci men Type: BLOOD SPECIMENOrdering Facility: [facility] Address: [address] [place] [address] Performed By: #### 5 7021-8 ####[facility] [id number] [place] [address] [place] Monocytes (Bld) [#/Vol] 0.72 10*3/uL Normal <0.87 [facility] Comment on above: Order Comment: Speci men Type: BLOOD SPECIMENOrdering Facility: [facility] Address: [address] [place] [address] Performed By: #### 5 7021-8 ####[facility] [id number] [place] [address] [place] Monocytes/100 WBC (Bld) 14.3 % Normal [facility] Comment on above: Order Comment: Speci men Type: BLOOD SPECIMENOrdering Facility: [facility] Address: [address] [place] [address] Performed By: #### 5 7021-8 ####[facility]ENTERLIA [id number] [place] [address] [place] Neutrophils (Bld) [#/Vol] 2.99 10*3/uL Normal 1.45-7.50 [facility] Comment on above: Order Comment: Speci men Type: BLOOD SPECIMENOrdering Facility: [facility] Address: [address] [place] [address] Performed By: #### 5 7021-8 ####[facility] HOSPITALNCLIA [id number] [place] [address] [place] Neutrophils/100 WBC (Bld) 59.3 % Normal [facility] Comment on above: Order Comment: Speci men Type: BLOOD SPECIMENOrdering Facility: [facility] Address: [address] [place] [address] Performed By: #### 5 7021-8 ####[facility] JONHJEAN [id number] [place] [address] [place] Nucleated RBC (Bld) [#/Vol] 0.03 10*3/uL High <0.01 [facility] Comment on above: Order Comment: Speci men Type: BLOOD SPECIMENOrdering Facility: [facility] Address: [address] [place] [address] Performed By: #### 5 7021-8 ####[facility] HOSPITALROBERTOGDEN REG[facility] [id number] [place] [address] [place] Nucleated RBC/100 WBC (Bld) [Ratio] 0.6 /100 WBC Normal [facility] Comment on above: Order Comment: Speci men Type: BLOOD SPECIMENOrdering Facility: [facility] Address: [address] [place] [address] Performed By: #### 5 7021-8 ####[facility] HOSPITALROBERTLIA [id number] [place] [address] [place] Platelet mean volume (Bld) [Entitic vol] 10.5 fL Normal 9.0-12.7 [facility] Comment on above: Order Comment: Speci men Type: BLOOD SPECIMENOrdering Facility: [facility] Address: [address] [place] [address] Performed By: #### 5 7021-8 ####[facility] HOSPITALNCLIA [id number] [place] [address] [place] Platelets (Bld) [#/Vol] 245 10*3/uL Normal 150-400 [facility] Comment on above: Order Comment: Speci men Type: BLOOD SPECIMENOrdering Facility: [facility] Address: [address] [place] [address] Performed By: #### 5 7021-8 ####[facility] HOSPITALWNCLIA [id number] [place] [address] [place] RBC (Bld) [#/Vol] 2.33 10*6/uL Low 4.20-6.00 [facility] Comment on above: Order Comment: Speci men Type: BLOOD SPECIMENOrdering Facility: [facility] Address: [address] [place] [address] Performed By: #### 5 7021-8 ####[facility] HOSPITALNCLIA [id number] [place] [address] [place] WBC (Bld) [#/Vol] 5.04 10*3/uL Normal 3.70-11.00 [facility] Comment on above: Order Comment: Speci men Type: BLOOD SPECIMENOrdering Facility: [facility] Address: [address] [place] [address] Performed By: #### 5 7021-8 ####[facility] HOSPITALNCA [id number] [place] [address] [place] CNPTOUTREACHon 07-05-2024 CNPTOUTREACH Normal [facility] CNPTOUTREACHon 07-04-2024 CNPTOUTREACH Normal [facility] XR Chest PA and Lateralon IMPRESSION: No acute radiographic abnormality. Repack Room Worker: PSCB Transcribe Date/Time: Jan 25 2024 4:34A Dictated by : SKY SORIA MD This examination was interpreted and the report reviewed and electronically signed by: SKY SORIA MD on Jan 25 2024 4:35AM [facility] DIVISION OF RADIOLOGY * * [...] humeral arthroplasty hardware. DIVISION OF RADIOLOGY Provider, [facility] - 01/25/2024 * * *Final Report* * [...] hardware. IMPRESSION IMPRESSION: No acute radiographic abnormality. Repack Room Worker: PSCB Transcribe Date/Time: Jan 25 2024 4:34A Dictated by : SKY SORIA MD This examination was interpreted and the report reviewed and electronically signed by: SKY SORIA MD on Jan 25 2024 4:35AM EST [facility] XR Chest PA and LateralOrder ed By: Ccf Provider on 01-25-2024 [facility] XR Chest PA and Lateralon Radiology Study observation (narrative) [facility] XR Elbow - right AP and Late ral and obliqueon 12-24-2023 IMPRESSION: No acute osseous abnormality Repack Room Worker: [facility] Transcribe Date/Time: Dec 24 2023 8:16A Dictated [...] the olecranon process. DIVISION OF RADIOLOGY Provider, [facility] - 12/24/2023 * * *Final Report* * [...] process. IMPRESSION IMPRESSION: No acute osseous abnormality Repack Room Worker: [facility] Transcribe Date/Time: Dec 24 2023 8:16A Dictated by : JOSE ROBERTS MD This examination was interpreted and the report reviewed and electronically signed by: JOSE ROBERTS MD on Dec 24 2023 8:20AM EST [facility] XR Elbow - right AP and Late ral and obliqueOrdered By: Ccf Provider on 12-24-2023 [facility] XR Elbow - right AP and Late ral and obliqueon 12-23-2023 Radiology Study observation (narrative) [facility] Laboratory - Chemistry and C hemistry - challengeOrdered By: Ronaldo Pleitez on 06-22-2023 Cobalamin (Vitamin B12) [Mass/Vol] 567 pg/mL 211-911 [facility] No Panel InformationOrdered By: Ronaldo Pleitez on 06-22-2023 Vitamin D 25-Hydroxy 64.7 ng/mL [facility] Comment on above: Vitamin D 25(OH) Sta tus Range Deficiency <20 ng/mL (50nmol/L) Insufficiency 20 - 30 ng/mL (50 - 75 nmol/L) Sufficiency 30 - 100 ng/mL (75 - 250 nmol/L) Toxicity >100 ng/mL (>250 nmol/L) XR CHEST 2V FRONTAL/LATon [facility] Absolute lymphocyte countOrd ered By: Mary Prather on 05-18-2023 Lymphocytes Auto (Unsp spec) [#/Vol] 0.54 10*3/uL 0.83-4.51 [facility] Basophil percentageOrdered B y: Mary Prather on 05-18-2023 Basophils/100 WBC (Bld) 0.4 % 0-1 [facility] Bilirubin [Mass/Vol] 1.50 mg/dL 0.20-1.00 [facility] Comment on above: For patients on eltr ombopag therapy, use of Dimension [place] TBIL is not recommended. Chloride [Moles/Vol] 103 mmol/L 98-107 [facility] Eosinophils/100 WBC (Bld) 1.9 % 0-5 [facility] Glucose [Mass/Vol] 93 mg/dL 74-106 [facility] Neutrophils (Bld) [#/Vol] 3.9 10*3/uL 2.0-7.7 [facility] Neutrophils/100 WBC (Bld) 80.3 % 47-70 [facility] Potassium [Moles/Vol] 3.8 mmol/L 3.5-5.1 [facility] Protein [Mass/Vol] 5.2 g/dL 6.4-8.2 [facility] Sodium [Moles/Vol] 136 mmol/L 136-145 [facility] WBC (Bld) [#/Vol] 4.8 10*3/uL 4.4-11.0 [facility] Blood erythrocytes count (nu mber/volume)Ordered By: Mary Prather on 05-18-2023 RBC (Bld) [#/Vol] 2.64 10*6/uL 4.6-6.2 [facility] Blood hemoglobin measurement (mass/volume)Ordered By: Mary Prather on 05-18-2023 Hemoglobin (Bld) [Mass/Vol] 8.7 g/dL 13.0-16.5 [facility] Blood lymphocytes/100 leukoc ytesOrdered By: Mary Prather on 05-18-2023 Lymphocytes/100 WBC (Bld) 11.3 % 19-41 [facility] Blood monocytes/100 leukocyt esOrdered By: Mary Prather on 05-18-2023 Monocytes/100 WBC (Bld) 4.2 % 0-10 [facility] Blood platelet mean volumeOr dered By: Mary Prather on 05-18-2023 Platelet mean volume (Bld) [Entitic vol] 10.8 fL 6.2-12.0 [facility] Determination of erythrocyte mean corpuscular volume (MCV)Ordered By: Mary Prather on 05-18-2023 MCV (RBC) [Entitic vol] 103.0 fL 80-94 [facility] Hematocrit Auto (Bld) [Volum e fraction]Ordered By: Mary Prather on 05-18-2023 Hematocrit (Bld) [Volume fraction] 27.2 % 40-54 [facility] Laboratory - Chemistry and C hemistry - challengeOrdered By: Mary Prather on 05-18-2023 ALP [Catalytic activity/Vol] 134 U/L 45-117 [facility] ALT [Catalytic activity/Vol] 51 U/L 16-61 [facility] CO2 [Moles/Vol] 30.0 mmol/L 21.0-32.0 [facility] Globulin (S) [Mass/Vol] 3.1 g/dL 2.2-4.2 [facility] Urea nitrogen/Creatinine [Mass ratio] 29.8 mg/mg 10-20 [facility] Laboratory - Hematology and Cell countsOrdered By: Mary Prather on 05-18-2023 Anisocytosis Ql (Bld) 2+ [facility] Erythrocyte distribution width (RBC) [Entitic vol] 86.3 fL 35.1-43.9 [facility] Erythrocyte distribution width (RBC) [Ratio] 22.7 % 11.6-14.6 [facility] Immature granulocytes/100 WBC (Bld) 1.900 % 0.0-0.9 [facility] Comment on above: IG% - Immature Granu locytes (promyelocytes, myelocytes and metamyelocytes) > 1% indicates that a LEFT SHIFT is Present. MCH (RBC) [Entitic mass] 33.0 pg 27.0-32.0 [facility] Nucleated RBC/100 WBC (Bld) [Ratio] 0 % 0-5 [facility] MCHC Auto (RBC) [Mass/Vol]Or dered By: Mary Prather on 05-18-2023 MCHC (RBC) [Mass/Vol] 32.0 g/dL 32-36 [facility] Macrocytes detectionOrdered By: Mary Prather on 05-18-2023 Macrocytes Ql (Bld) 2+ [facility] No Panel InformationOrdered By: Mary Prather on 05-18-2023 Estimated Creatinine Clearance Calc 57.92 ml/min [facility] Estimated GFR (MDRD) Amer 111 mL/min >60 [facility] Comment on above: GFR Calc Estimated GFR (MDRD) Non-Af Amer 92 mL/min >60 [facility] Comment on above: Non- GFR Calc Platelets bldOrdered By: Ceci Prather on 05-18-2023 Platelets (Bld) [#/Vol] 216 10*3/uL 150-450 [facility] Serum or plasma albumin gris urement (mass/volume)Ordered By: Mary Prather on 05-18-2023 Albumin [Mass/Vol] 2.1 g/dL 3.2-5.0 [facility] Serum or plasma albumin/glob ulin mass ratioOrdered By: Mary Prather on 05-18-2023 Albumin/Globulin [Mass ratio] 0.7 {ratio} 0.9-2.4 [facility] Serum or plasma calcium gris urement (mass/volume)Ordered By: Mary Prather on 05-18-2023 Calcium [Mass/Vol] 8.2 mg/dL 8.5-10.1 [facility] Serum or plasma creatinine m easurement (mass/volume)Ordered By: Mary Prather on 05-18-2023 Creatinine [Mass/Vol] 0.84 mg/dL 0.70-1.30 [facility] Comment on above: The validity of the calculated GFR & GFRAA in patients over 70 years has not been determined. Clinical correlation is essential. Serum or plasma urea nitroge n measurement (mass/volume)Ordered By: Mary Prather on 05-18-2023 Urea nitrogen [Mass/Vol] 25 mg/dL 7-18 [facility] Thin prep Papanicolaou smear with manual screeningOrdered By: Mary Prather on 05-18-2023 Thin prep Papanicolaou smear with manual screening 21 U/L 15-37 [facility] Thin prep Papanicolaou smear with manual screening 3 5-15 [facility] Blood manual differential co mment interpretation (narrative result)Ordered By: Mary Prather on 05-17-2023 Manual differential comment [facility]gg (Bld) [Interp] SCANNED [facility] Blood polychromasia detectio n by light microscopyOrdered By: Mary Prather on 05-17-2023 Polychromasia LM Ql (Bld) RARE [facility] Blood schistocytes detection by light microscopyOrdered By: Mary Prather on 05-17-2023 Schistocytes LM Ql (Bld) RARE [facility] Laboratory - Chemistry and C hemistry - challengeOrdered By: Marshal Rebolledo on 05-17-2023 Cobalamin (Vitamin B12) [Mass/Vol] 341 pg/mL 211-911 [facility] Laboratory - Microbiology an d Antimicrobial susceptibilityOrdered By: Marshal Rebolledo on 05-17-2023 Bacteria identified Cx Nom (Bld) No growth in 5 days. [facility] Serum or plasma folate measu rement (mass/volume)Ordered By: Marshal Rebolledo on 05-17-2023 Folate [Mass/Vol] 30.10 ng/mL 3.1-55.4 [facility] Thin prep Papanicolaou smear with manual screeningOrdered By: Mary Prather on 05-17-2023 Thin prep Papanicolaou smear with manual screening 1+ [facility] Vancomycin troughOrdered By: Marshal Rebolledo on 05-17-2023 Vancomycin trough [Mass/Vol] 15.3 ug/mL 5.0-15.0 [facility] Comment on above: VANCOMYCIN STANDARED DRUG THERAPY TROUGH LEVEL: 5.0 - 15.0 mg/L VANCOMYCIN HIGH INTENSITY THERAPY TROUGH LEVEL: 15.0 - 20.0 mg/L High Intensity therapy recommended for serious lifethreatening infections include:- Bfdluoxuhm-Ctuolrgbvcwp-Cchebojmz (Ventilator/Healtcare Associated)-Sepsis PLEASE CONTACT PHARMACY SERVICES (#[phone]) FOR INTERPRETATIONOF RESULTS. No Panel InformationOrdered By: Marshal Rebolledo on 05-16-2023 RBC Folate Hemolysate > 620.0 ng/mL Not Estab. [facility] Red Blood Cell Folate > 2322 ng/mL >[address] [facility] Comment on above: Performed at: [address] [id number] Director: Juan Manuel Uriostegui PhD, Phone: [phone] Thin prep Papanicolaou smear with manual screeningOrdered By: Marshal Rebolledo on 05-16-2023 Thin prep Papanicolaou smear with manual screening 26.7 % 37.5-51.0 [facility] Whole blood hemoglobin A1c/t otal hemoglobin ratio (mass fraction)Ordered By: Mary Prather on 05-16-2023 HbA1c (Bld) [Mass fraction] 6.9 % 3.8-5.6 [facility] Comment on above: Normal < 5.7 % Predi abetic 5.7 - 6.4 % Diabetic >or= 6.5 % Please note range changes. Blood platelet adequacy dete ction by light microscopyOrdered By: Mary Prather on 05-15-2023 Platelets LM Ql (Bld) ADEQUATE ADEQ [facility] Glucose Glucometer (BldC) [M ass/Vol]Ordered By: Mary Prather on 05-15-2023 Glucose [Mass/Vol] 147 mg/dL 74-106 [facility] Comment on above: MANAGEMENT OF PATIEN T CARE PER NURSING PROTOCOL INR in Blood by Coagulation assayOrdered By: Mary Prather on 05-15-2023 INR Coag (Bld) [Relative time] 1.5 {INR} [facility] Laboratory - Chemistry and C hemistry - challengeOrdered By: Mary Prather on 05-15-2023 Magnesium [Mass/Vol] 1.9 mg/dL 1.6-2.6 [facility] Laboratory - CoagulationOrde red By: Mary Prather on 05-15-2023 PT Coag (PPP) [Time] 18.2 s 11.7-14.9 [facility] No Panel InformationOrdered By: Mary Prather on 05-15-2023 Digoxin Level 1.39 ng/mL 0.80-2.00 [facility] Thyroid Stimulating Hormone (TSH) 0.61 uIU/mL 0.358-3.74 [facility] Absolute lymphocyte countOrd ered By: Pedro Wheelerone on 05-14-2023 Lymphocytes Auto (Unsp spec) [#/Vol] 0.39 10*3/uL 0.83-4.51 [facility] Basophil percentageOrdered B y: Pedro Diaz on 05-14-2023 Lactate [Moles/Vol] 2.4 mmol/L 0.4-2.0 [facility] Comment on above: Critical Result(s) C alled at: 18:12:55 05/14/2023 by: Yue LEWIS. Results read back by same. Basophils/100 WBC (Bld) 0.4 % 0-1 [facility] Bilirubin [Mass/Vol] 1.20 mg/dL 0.20-1.00 [facility] Comment on above: For patients on eltr ombopag therapy, use of Dimension [place] TBIL is not recommended. Chloride [Moles/Vol] 96 mmol/L 98-107 [facility] Eosinophils/100 WBC (Bld) 0.0 % 0-5 [facility] Glucose [Mass/Vol] 252 mg/dL 74-106 [facility] Comment on above: Glucose result great er than or equal to 200 mg/dLsuggests DIABETES MELLITUS per A.D.A. criteria. Lactate [Moles/Vol] 3.8 mmol/L 0.4-2.0 [facility] Comment on above: Critical Result(s) C alled at: 13:57:26 05/14/2023 by: Tari Martínez. Results read back by same. Neutrophils (Bld) [#/Vol] 6.2 10*3/uL 2.0-7.7 [facility] Neutrophils/100 WBC (Bld) 89.7 % 47-70 [facility] Potassium [Moles/Vol] 4.5 mmol/L 3.5-5.1 [facility] Protein [Mass/Vol] 5.4 g/dL 6.4-8.2 [facility] Sodium [Moles/Vol] 136 mmol/L 136-145 [facility] WBC (Bld) [#/Vol] 7.0 10*3/uL 4.4-11.0 [facility] Blood erythrocytes count (nu mber/volume)Ordered By: Pedro Daiz on 05-14-2023 RBC (Bld) [#/Vol] 2.84 10*6/uL 4.6-6.2 [facility] Blood hemoglobin measurement (mass/volume)Ordered By: Pedro Diaz on 05-14-2023 Hemoglobin (Bld) [Mass/Vol] 9.3 g/dL 13.0-16.5 [facility] Blood lymphocytes/100 leukoc ytesOrdered By: Pedro Diaz on 05-14-2023 Lymphocytes/100 WBC (Bld) 5.6 % 19-41 [facility] Blood manual differential co mment interpretation (narrative result)Ordered By: Pedro Diaz on 05-14-2023 Manual differential comment Gregg (Bld) [Interp] SCANNED [facility] Blood monocytes/100 leukocyt esOrdered By: Pedro Diaz on 05-14-2023 Monocytes/100 WBC (Bld) 2.7 % 0-10 [facility] Blood platelet mean volumeOr dered By: Pedro Diaz on 05-14-2023 Platelet mean volume (Bld) [Entitic vol] 10.7 fL 6.2-12.0 [facility] Blood polychromasia detectio n by light microscopyOrdered By: Pedro Diaz on 05-14-2023 Polychromasia LM Ql (Bld) RARE [facility] Determination of erythrocyte mean corpuscular volume (MCV)Ordered By: Pedro Diaz on 05-14-2023 MCV (RBC) [Entitic vol] 103.2 fL 80-94 [facility] Hematocrit Auto (Bld) [Volum e fraction]Ordered By: Pdero Diaz on 05-14-2023 Hematocrit (Bld) [Volume fraction] 29.3 % 40-54 [facility] INR in Blood by Coagulation assayOrdered By: Pedro Diaz on 05-14-2023 INR Coag (Bld) [Relative time] 1.5 {INR} [facility] Laboratory - Chemistry and C hemistry - challengeOrdered By: Pedro Diaz on 05-14-2023 ALP [Catalytic activity/Vol] 92 U/L 45-117 [facility] ALT [Catalytic activity/Vol] 51 U/L 16-61 [facility] CO2 [Moles/Vol] 35.0 mmol/L 21.0-32.0 [facility] Globulin (S) [Mass/Vol] 2.7 g/dL 2.2-4.2 [facility] Natriuretic peptide B (Bld) [Mass/Vol] 972.1 pg/mL 0-100 [facility] Urea nitrogen/Creatinine [Mass ratio] 26.5 mg/mg 10-20 [facility] Laboratory - CoagulationOrde red By: Pedro Diaz on 05-14-2023 aPTT Coag (Bld) [Time] 30.3 s 24.1-36.2 [facility] PT Coag (PPP) [Time] 18.6 s 11.7-14.9 [facility] Laboratory - Hematology and Cell countsOrdered By: Pedro Diaz on 05-14-2023 Anisocytosis Ql (Bld) 2+ [facility] Erythrocyte distribution width (RBC) [Entitic vol] 83.3 fL 35.1-43.9 [facility] Erythrocyte distribution width (RBC) [Ratio] 22.2 % 11.6-14.6 [facility] Immature granulocytes/100 WBC (Bld) 1.600 % 0.0-0.9 [facility] Comment on above: IG% - Immature Granu locytes (promyelocytes, myelocytes and metamyelocytes) > 1% indicates that a LEFT SHIFT is Present. MCH (RBC) [Entitic mass] 32.7 pg 27.0-32.0 [facility] Nucleated RBC/100 WBC (Bld) [Ratio] 0.4 % 0-5 [facility] MCHC Auto (RBC) [Mass/Vol]Or dered By: Pedro Diaz on 05-14-2023 MCHC (RBC) [Mass/Vol] 31.7 g/dL 32-36 [facility] Macrocytes detectionOrdered By: Pedro Diaz on 05-14-2023 Macrocytes Ql (Bld) 1+ [facility] No Panel InformationOrdered By: Pedro Diaz on 05-14-2023 Estimated Creatinine Clearance Calc 41.59 ml/min [facility] Estimated GFR (MDRD) Amer 76 mL/min >60 [facility] Comment on above: GFR Calc Estimated GFR (MDRD) Non-Af Amer 63 mL/min >60 [facility] Comment on above: Non- GFR Calc Troponin I High Sensitivity 111 pg/mL 3.0-78.0 [facility] Comment on above: Please Note: New [place]ina t Units and Gender Specific Reference Ranges. For more information see Policy Stat Procedure [place] High Sensitivity Troponin (TNIH) and attachments. Platelets bldOrdered By: Mago Diaz on 05-14-2023 Platelets (Bld) [#/Vol] 399 10*3/uL 150-450 [facility] Serum or plasma albumin gris urement (mass/volume)Ordered By: Pedro Diaz on 05-14-2023 Albumin [Mass/Vol] 2.7 g/dL 3.2-5.0 [facility] Serum or plasma albumin/glob ulin mass ratioOrdered By: Pedro Diaz on 05-14-2023 Albumin/Globulin [Mass ratio] 1.0 {ratio} 0.9-2.4 [facility] Serum or plasma calcium gris urement (mass/volume)Ordered By: Pedro Diaz on 05-14-2023 Calcium [Mass/Vol] 8.4 mg/dL 8.5-10.1 [facility] Serum or plasma creatinine m easurement (mass/volume)Ordered By: Pedro Diaz on 05-14-2023 Creatinine [Mass/Vol] 1.17 mg/dL 0.70-1.30 [facility] Comment on above: The validity of the calculated GFR & GFRAA in patients over 70 years has not been determined. Clinical correlation is essential. Serum or plasma urea nitroge n measurement (mass/volume)Ordered By: Pedro Diaz on 05-14-2023 Urea nitrogen [Mass/Vol] 31 mg/dL 7-18 [facility] Thin prep Papanicolaou smear with manual screeningOrdered By: Pedro Diaz on 05-14-2023 Thin prep Papanicolaou smear with manual screening 20 U/L 15-37 [facility] Thin prep Papanicolaou smear with manual screening 5 5-15 [facility] No Panel InformationOrdered By: [facility] on 05-[facility]-2023 Digoxin Level 0.96 ng/mL 0.80-2.00 [facility] CBC W Auto Differential pane l (Bld)on 05-04-2023 Basophils (Bld) [#/Vol] 0.04 10*3/uL <0.11 k/uL [facility] Basophils/100 WBC (Bld) 1.5 % [facility] Differential cell count method Nom (Bld) Auto [facility] Eosinophils (Bld) [#/Vol] 0.06 10*3/uL <0.46 k/uL [facility] Eosinophils/100 WBC (Bld) 2.3 % [facility] Erythrocyte distribution width (RBC) [Ratio] 22.0 % High 11.5 - 15.0 % [facility] Hematocrit (Bld) [Volume fraction] 28.2 % Low 39.0 - 51.0 % [facility] Hemoglobin (Bld) [Mass/Vol] 9.2 g/dL Low 13.0 - 17.0 g/dL [facility] Immature granulocytes (Bld) [#/Vol] <0.10 k/uL [facility] Immature granulocytes/100 WBC (Bld) 0.4 % [facility] Lymphocytes (Bld) [#/Vol] 0.63 10*3/uL Low 1.00 - 4.00 k/uL [facility] Lymphocytes/100 WBC (Bld) 24.2 % [facility] MCH (RBC) [Entitic mass] 33.7 pg 26.0 - 34.0 pg [facility] MCHC (RBC) [Mass/Vol] 32.6 g/dL 30.5 - 36.0 g/dL [facility] MCV (RBC) [Entitic vol] 103.3 fL High 80.0 - 100.0 fL [facility] Monocytes (Bld) [#/Vol] 0.17 10*3/uL <0.87 k/uL [facility] Monocytes/100 WBC (Bld) 6.5 % [facility] Neutrophils (Bld) [#/Vol] 1.69 10*3/uL 1.45 - 7.50 k/uL [facility] Neutrophils/100 WBC (Bld) 65.1 % [facility] Nucleated RBC (Bld) [#/Vol] <0.01 k/uL [facility] Nucleated RBC/100 WBC (Bld) [Ratio] 0.0 /100 WBC [facility] Platelet mean volume (Bld) [Entitic vol] 10.1 fL 9.0 - 12.7 fL [facility] Platelets (Bld) [#/Vol] 338 10*3/uL 150 - 400 k/uL [facility] RBC (Bld) [#/Vol] 2.73 10*6/uL Low 4.20 - 6.00 m/uL [facility] WBC (Bld) [#/Vol] 2.60 10*3/uL Low 3.70 - 11.00 k/uL [facility] No Panel InformationOrdered By: [facility] on 05-04-2023 Troponin I High Sensitivity 116 pg/mL 3.0-78.0 [facility] Comment on above: Please Note: New [place] t Units and Gender Specific Reference Ranges. For more information see Policy Stat Procedure [place] High Sensitivity Troponin (TNIH) and attachments. CT BRAIN IVCONon 04-21-20 [facility] CNPNon 04-20-2023 CNPN Normal [facility] Basic metabolic 2000 panelon 03-20-2023 Anion gap [Moles/Vol] 4 mmol/L Low 9-18 [facility] Comment on above: Order Comment: Speci men Type: BLOOD SPECIMENOrdering Facility: [facility] Address: [address] [place] [id number] Performed By: #### 2 4321-2 ####[facility] LABCLIA [id number] [place] [address] [place] Calcium [Mass/Vol] 8.8 mg/dL Normal 8.6-10.3 [facility] Comment on above: Order Comment: Speci men Type: BLOOD SPECIMENOrdering Facility: [facility] Address: [address] [place] [address] Performed By: #### 2 4321-2 ####[facility] LABCLIA [id number] [place] [address] [place] Chloride [Moles/Vol] 102 mmol/L Normal 101-111 [facility] Comment on above: Order Comment: Speci men Type: BLOOD SPECIMENOrdering Facility: [facility] Address: [address] [place] [address] Performed By: #### 2 4321-2 ####[facility] LABCLIA [id number] [address] [place] CO2 [Moles/Vol] 35 mmol/L High 21-31 [facility] Comment on above: Order Comment: Speci men Type: BLOOD SPECIMENOrdering Facility: [facility] Address: [address] [place] [address] Performed By: #### 2 4321-2 ####[facility] LABCLIA [id number] [place] [address] [place] Creatinine [Mass/Vol] 1.05 mg/dL Normal 0.60-1.30 [facility] Comment on above: Order Comment: Speci men Type: BLOOD SPECIMENOrdering Facility: [facility] Address: [address] [place] [address] Result Comment: Use of this assay is not recommended for patients undergoing treatment with phenindione, due to the potential for falsely depressed results. Performed By: #### 2 4321-2 ####[facility] LABCLIA [id number] [place] [address] [place] ESTIMATED GLOMERULAR FILTRATION RATE 69 mL/min/1.73m??? Normal >=60 [facility] Comment on above: Order Comment: Speci men Type: BLOOD SPECIMENOrdering Facility: [facility] Address: [address] [place] [address] Result Comment: Concepción mated Glomerular Filtration Rate [...] actual GFR. Performed By: #### 2 4321-2 ####[facility] LABCLIA [id number] [place] [address] [place] Glucose [Mass/Vol] 115 mg/dL High 74-99 [facility] Comment on above: Order Comment: Elfego gilbert Type: BLOOD SPECIMENOrdering Facility: [facility] Address: [address] [place] [address] Result Comment: The [place] Diabetes Association (ADA) provides guidance for cutoff [...] Standards of Medical Care in Diabetes 2016, [place] [employer]. Diabetes Care. 2016.39(Suppl 1). Performed By: #### 2 4321-2 ####[facility] [place] LABCLIA [id number] [place] [address] [place] Potassium [Moles/Vol] 3.9 mmol/L Normal 3.6-5.1 [facility] Comment on above: Order Comment: Elfego gilbert Type: BLOOD SPECIMENOrdering Facility: [facility] Address: [address] [place] [address] Performed By: #### 2 4321-2 ####[facility] LABCLIA [id number] [address] STATES [facility] Sodium [Moles/Vol] 141 mmol/L Normal 136-144 [facility] Comment on above: Order Comment: Speci men Type: BLOOD SPECIMENOrdering Facility: [facility] Address: [address] [place] [address] Performed By: #### 2 4321-2 ####[facility] LABCLIA [id number] [place] [address] [place] Urea nitrogen [Mass/Vol] 32 mg/dL High 7-25 [facility] Comment on above: Order Comment: Speci men Type: BLOOD SPECIMENOrdering Facility: [facility] Address: [address] [place] [address] Performed By: #### 2 4321-2 ####[facility] LABCLIA [id number] [address] [place] CBC W Auto Differential pane l (Bld)on 03-20-2023 Basophils (Bld) [#/Vol] 0.03 10*3/uL Normal <0.11 [facility] Comment on above: Order Comment: Speci men Type: BLOOD SPECIMENOrdering Facility: [facility] Address: [address] [place] [address] Performed By: #### 5 7021-8 ####[facility] LABCLIA [id number] [place] [address] [place] Basophils/100 WBC (Bld) 0.6 % Normal [facility] Comment on above: Order Comment: Speci men Type: BLOOD SPECIMENOrdering Facility: [facility] Address: [address] [place] [address] Performed By: #### 5 7021-8 ####[facility] LABCLIA [id number] [place] [address] [facility] Differential cell count method Nom (Bld) Auto Normal [facility] Comment on above: Order Comment: Speci men Type: BLOOD SPECIMENOrdering Facility: [facility] Address: [address] [place] [address] Performed By: #### 5 7021-8 ####[facility] LABCLIA [id number] [place] [address] [facility] Eosinophils (Bld) [#/Vol] 0.11 10*3/uL Normal <0.46 [facility] Comment on above: Order Comment: Speci men Type: BLOOD SPECIMENOrdering Facility: [facility] Address: [address] [place] [address] Performed By: #### 5 7021-8 ####[facility] LABCLIA [id number] [address] Eosinophils/100 WBC (Bld) 2.1 % Normal [facility] Comment on above: Order Comment: Speci men Type: BLOOD SPECIMENOrdering Facility: [facility] Address: [address] [place] [address] Performed By: #### 5 7021-8 ####[facility] LABCLIA [id number] [place] [address] [facility] [place] Erythrocyte distribution width (RBC) [Ratio] 21.1 % High 11.5-15.0 [facility] Comment on above: Order Comment: Speci men Type: BLOOD SPECIMENOrdering Facility: [facility] Address: [address] [place] [address] Performed By: #### 5 7021-8 ####[facility] LABCLIA [id number] [place] [address] [facility] Hematocrit (Bld) [Volume fraction] 30.8 % Low 39.0-51.0 [facility] Comment on above: Order Comment: Speci men Type: BLOOD SPECIMENOrdering Facility: [facility] Address: [address] [place] [address] Performed By: #### 5 7021-8 ####[facility] LABCLIA [id number] [place] [address] [place] Hemoglobin (Bld) [Mass/Vol] 9.9 g/dL Low 13.0-17.0 [facility] Comment on above: Order Comment: Speci men Type: BLOOD SPECIMENOrdering Facility: [facility] Address: [address] [place] [address] Performed By: #### 5 7021-8 ####[facility] LABCLIA [id number] [place] [address] [place] Immature granulocytes (Bld) [#/Vol] 0.04 10*3/uL Normal <0.10 [facility] Comment on above: Order Comment: Speci men Type: BLOOD SPECIMENOrdering Facility: [facility] Address: [address] [place] [address] Performed By: #### 5 7021-8 ####[facility] LABCLIA [id number] [place] [address] [place] Immature granulocytes/100 WBC (Bld) 0.8 % Normal [facility] Comment on above: Order Comment: Speci men Type: BLOOD SPECIMENOrdering Facility: [facility] Address: [address] [place] [address] Performed By: #### 5 7021-8 ####[facility] LABCLIA [id number] [place] [address] [place] Lymphocytes (Bld) [#/Vol] 1.05 10*3/uL Normal 1.00-4.00 [facility] Comment on above: Order Comment: Speci men Type: BLOOD SPECIMENOrdering Facility: [facility] Address: [address] [place] [address] Performed By: #### 5 7021-8 ####[facility] LABCLIA [id number] [place] [address] [place] Lymphocytes/100 WBC (Bld) 20.3 % Normal [facility] Comment on above: Order Comment: Speci men Type: BLOOD SPECIMENOrdering Facility: [facility] Address: [address] [place] [address] Performed By: #### 5 7021-8 ####[facility] LABCLIA [id number] [address] MCH (RBC) [Entitic mass] 35.4 pg High 26.0-34.0 [facility] Comment on above: Order Comment: Speci men Type: BLOOD SPECIMENOrdering Facility: [facility] Address: [address] [place] [address] Performed By: #### 5 7021-8 ####[facility] LABCLIA [id number] [place] [address] [place] MCHC (RBC) [Mass/Vol] 32.1 g/dL Normal 30.5-36.0 [facility] Comment on above: Order Comment: Speci men Type: BLOOD SPECIMENOrdering Facility: [facility] Address: [address] [place] [address] Performed By: #### 5 7021-8 ####[facility] LABCLIA [id number] [place] [address] [facility] [place] MCV (RBC) [Entitic vol] 110.0 fL High 80.0-100.0 [facility] Comment on above: Order Comment: Speci men Type: BLOOD SPECIMENOrdering Facility: [facility] Address: [address] [place] [address] Performed By: #### 5 7021-8 ####[facility] LABCLIA [id number] [place] [address] [facility] Monocytes (Bld) [#/Vol] 0.38 10*3/uL Normal <0.87 [facility] Comment on above: Order Comment: Speci men Type: BLOOD SPECIMENOrdering Facility: [facility] Address: [address] [place] [address] Performed By: #### 5 7021-8 ####[facility] LABCLIA [id number] [place] [address] [place] Monocytes/100 WBC (Bld) 7.4 % Normal [facility] Comment on above: Order Comment: Speci men Type: BLOOD SPECIMENOrdering Facility: [facility] Address: [address] [place] [address] Performed By: #### 5 7021-8 ####[facility] LABCLIA [id number] [place] [address] [place] Neutrophils (Bld) [#/Vol] 3.55 10*3/uL Normal 1.45-7.50 [facility] Comment on above: Order Comment: Speci men Type: BLOOD SPECIMENOrdering Facility: [facility] Address: [address] [place] [address] Performed By: #### 5 7021-8 ####[facility] LABCLIA [id number] [place] [address] [place] Neutrophils/100 WBC (Bld) 68.8 % Normal [facility] Comment on above: Order Comment: Speci men Type: BLOOD SPECIMENOrdering Facility: [facility] Address: [address] [place] [address] Performed By: #### 5 7021-8 ####[facility] LABCLIA [id number] [place] [address] [place] Nucleated RBC (Bld) [#/Vol] Normal [facility] Comment on above: Order Comment: Speci men Type: BLOOD SPECIMENOrdering Facility: [facility] Address: [address] [place] [address] Performed By: #### 5 7021-8 ####PEG SAUCEDA GREEN LABCLIA [id number] [place] [address] [place] Nucleated RBC/100 WBC (Bld) [Ratio] Normal [facility] Comment on above: Order Comment: Speci men Type: BLOOD SPECIMENOrdering Facility: [facility] Address: [address] [place] [address] Performed By: #### 5 7021-8 ####PEG YANG LABCLIA [id number] [place] [address] [place] Platelet mean volume (Bld) [Entitic vol] 11.2 fL Normal 9.0-12.7 [facility] Comment on above: Order Comment: Speci men Type: BLOOD SPECIMENOrdering Facility: [facility] Address: [address] [place] [address] Performed By: #### 5 7021-8 ####PEG YANG LABCLIA [id number] [place] [address] [place] Platelets (Bld) [#/Vol] 382 10*3/uL Normal 150-400 [facility] Comment on above: Order Comment: Speci men Type: BLOOD SPECIMENOrdering Facility: [facility] Address: [address] [place] [address] Performed By: #### 5 7021-8 ####PEG YANG LABCLIA [id number] [place] [address] [place] RBC (Bld) [#/Vol] 2.80 10*6/uL Low 4.20-6.00 [facility] Comment on above: Order Comment: Speci men Type: BLOOD SPECIMENOrdering Facility: [facility] Address: [address] [place] [address] Performed By: #### 5 7021-8 ####PEG YANG LABCLIA [id number] [place] [address] [place] WBC (Bld) [#/Vol] 5.16 10*3/uL Normal 3.70-11.00 [facility] Comment on above: Order Comment: Speci men Type: BLOOD SPECIMENOrdering Facility: [facility] Address: [address] [place] [address] Performed By: #### 5 7021-8 ####[facility] LABCLIA [id number] [place] [address] [place] ECG COMPLETEon 03-20-2023 ECG COMPLETE Normal [facility] ED PROV NOTEon 03-20-2023 ED PROV NOTE Normal [facility] XR FOOT 3V AP/LAT/OBL RTon 0 03-20-2023 XR FOOT 3V AP/LAT/OBL RT Normal [facility] aPTT PPPon 03-20-2023 aPTT Coag (PPP) [Time] 29.2 s Normal 23.0-32.4 [facility] Comment on above: Order Comment: Speci men Type: BLOOD SPECIMENOrdering Facility: [facility] Address: [address] [place] [address] Performed By: #### 1 4979-9 ####[facility] LABCLIA [id number] [address] [place] CNOVSPon 03-11-2023 CNOVSP Normal [facility] CBC W Auto Differential pane l (Bld)on 03-09-2023 Basophils (Bld) [#/Vol] 0.09 10*3/uL Normal <0.11 [facility] Comment on above: Order Comment: Speci men Type: BLOOD SPECIMENOrdering Facility: [facility] Address: [address] [place] [address] Performed By: #### 5 7021-8 ####[facility] LABCLIA [id number] [place] [address] [place] Basophils/100 WBC (Bld) 3.5 % Normal [facility] Comment on above: Order Comment: Speci men Type: BLOOD SPECIMENOrdering Facility: [facility] Address: [address] [place] [address] Performed By: #### 5 7021-8 ####[facility] LABCLIA [id number] [place] [address] [place] Differential cell count method Nom (Bld) Auto Normal [facility] Comment on above: Order Comment: Speci men Type: BLOOD SPECIMENOrdering Facility: [facility] Address: [address] [place] [address] Performed By: #### 5 7021-8 ####PEG YANG LABCLIA [id number] [place] [address] [place] Eosinophils (Bld) [#/Vol] 0.09 10*3/uL Normal <0.46 [facility] Comment on above: Order Comment: Speci men Type: BLOOD SPECIMENOrdering Facility: [facility] Address: [address] [place] [address] Performed By: #### 5 7021-8 ####PEG YANG LABCLIA [id number] [address] [place] Eosinophils/100 WBC (Bld) 3.5 % Normal [facility] Comment on above: Order Comment: Speci men Type: BLOOD SPECIMENOrdering Facility: [facility] Address: [address] [place] [address] Performed By: #### 5 7021-8 ####PEG YANG LABCLIA [id number] [place] [address] [place] Erythrocyte distribution width (RBC) [Ratio] 20.2 % High 11.5-15.0 [facility] Comment on above: Order Comment: Speci men Type: BLOOD SPECIMENOrdering Facility: [facility] Address: [address] [place] [address] Performed By: #### 5 7021-8 ####[place] [employer] LABCLIA [id number] [place] [address] [facility] [place] Hematocrit (Bld) [Volume fraction] 28.7 % Low 39.0-51.0 [facility] Comment on above: Order Comment: Speci men Type: BLOOD SPECIMENOrdering Facility: [facility] Address: [address] [place] [address] Performed By: #### 5 7021-8 ####PEG SAUCEDA GREEN LABCLIA [id number] [place] [address] [place] Hemoglobin (Bld) [Mass/Vol] 8.8 g/dL Low 13.0-17.0 [facility] Comment on above: Order Comment: Speci men Type: BLOOD SPECIMENOrdering Facility: [facility] Address: [address] [place] [address] Performed By: #### 5 7021-8 ####PEG SAUCEDA GREEN LABCLIA [id number] [place] [address] [place] Immature granulocytes (Bld) [#/Vol] 10*3/uL Normal <0.10 [facility] Comment on above: Order Comment: Speci men Type: BLOOD SPECIMENOrdering Facility: [facility] Address: [address] [place] [address] Performed By: #### 5 7021-8 ####[facility] LABCLIA [id number] [address] [place] Immature granulocytes/100 WBC (Bld) 0.0 % Normal [facility] Comment on above: Order Comment: Speci men Type: BLOOD SPECIMENOrdering Facility: [facility] Address: [address] [place] [address] Performed By: #### 5 7021-8 ####CTALIREZA YANG LABCLIA [id number] [place] [address] [place] Lymphocytes (Bld) [#/Vol] 0.81 10*3/uL Low 1.00-4.00 [facility] Comment on above: Order Comment: Speci men Type: BLOOD SPECIMENOrdering Facility: [facility] Address: [address] [place] [address] Performed By: #### 5 7021-8 ####[place] [facility] LABCLIA [id number] [place] [address] [facility] [place] Lymphocytes/100 WBC (Bld) 31.6 % Normal [facility] Comment on above: Order Comment: Speci men Type: BLOOD SPECIMENOrdering Facility: [facility] Address: [address] [place] [address] Performed By: #### 5 7021-8 ####[facility] LABCLIA [id number] [place] [address] [place] MCH (RBC) [Entitic mass] 34.5 pg High 26.0-34.0 [facility] Comment on above: Order Comment: Speci men Type: BLOOD SPECIMENOrdering Facility: [facility] Address: [address] [place] [address] Performed By: #### 5 7021-8 ####[facility] LABIA [id number] [place] [address] [place] MCHC (RBC) [Mass/Vol] 30.7 g/dL Normal 30.5-36.0 [facility] Comment on above: Order Comment: Speci men Type: BLOOD SPECIMENOrdering Facility: [facility] Address: [address] [place] [address] Performed By: #### 5 7021-8 ####[facility] LABCLIA [id number] [place] [address] [place] MCV (RBC) [Entitic vol] 112.5 fL High 80.0-100.0 [facility] Comment on above: Order Comment: Speci men Type: BLOOD SPECIMENOrdering Facility: [facility] Address: [address] [place] [address] Performed By: #### 5 7021-8 ####[facility] LABCLIA [id number] [place] [address] [facility] Monocytes (Bld) [#/Vol] 0.15 10*3/uL Normal <0.87 [facility] Comment on above: Order Comment: Speci men Type: BLOOD SPECIMENOrdering Facility: [facility] Address: [address] [place] [address] Performed By: #### 5 7021-8 ####PEG SAUCEDA GREEN LABCLIA [id number] [place] [address] [place] Monocytes/100 WBC (Bld) 5.9 % Normal [facility] Comment on above: Order Comment: Speci men Type: BLOOD SPECIMENOrdering Facility: [facility] Address: [address] [place] [address] Performed By: #### 5 7021-8 ####PEG SAUCEDA GREEN LABCLIA [id number] [place] [address] [place] Neutrophils (Bld) [#/Vol] 1.42 10*3/uL Low 1.45-7.50 [facility] Comment on above: Order Comment: Speci men Type: BLOOD SPECIMENOrdering Facility: [facility] Address: [address] [place] [address] Performed By: #### 5 7021-8 ####PEG SAUCEDA GREEN LABCLIA [id number] [place] [address] [place] Neutrophils/100 WBC (Bld) 55.5 % Normal [facility] Comment on above: Order Comment: Speci men Type: BLOOD SPECIMENOrdering Facility: [facility] Address: [address] [place] [address] Performed By: #### 5 7021-8 ####PEG SAUCEDA GREEN LABCLIA [id number] [place] [address] [place] Nucleated RBC (Bld) [#/Vol] Normal [facility] Comment on above: Order Comment: Speci men Type: BLOOD SPECIMENOrdering Facility: [facility] Address: [address] [place] [address] Performed By: #### 5 7021-8 ####[facility] LABCLIA [id number] [place] [address] [place] Nucleated RBC/100 WBC (Bld) [Ratio] Normal [facility] Comment on above: Order Comment: Speci men Type: BLOOD SPECIMENOrdering Facility: [facility] Address: [address] [place] [address] Performed By: #### 5 7021-8 ####PEG YANG LABCLIA [id number] [place] [address] [place] Platelet mean volume (Bld) [Entitic vol] 10.4 fL Normal 9.0-12.7 [facility] Comment on above: Order Comment: Speci men Type: BLOOD SPECIMENOrdering Facility: [facility] Address: [address] [place] [address] Performed By: #### 5 7021-8 ####CTALIREZA YANG LABCLIA [id number] [place] [address] [place] Platelets (Bld) [#/Vol] 359 10*3/uL Normal 150-400 [facility] Comment on above: Order Comment: Speci men Type: BLOOD SPECIMENOrdering Facility: [facility] Address: [address] [place] [address] Performed By: #### 5 7021-8 ####CTALIREZA YANG LABCLIA [id number] [place] [address] [place] RBC (Bld) [#/Vol] 2.55 10*6/uL Low 4.20-6.00 [facility] Comment on above: Order Comment: Speci men Type: BLOOD SPECIMENOrdering Facility: [facility] Address: [address] [place] [address] Performed By: #### 5 7021-8 ####[place] [facility] LABCLIA [id number] [place] [address] [place] WBC (Bld) [#/Vol] 2.56 10*3/uL Low 3.70-11.00 [facility] Comment on above: Order Comment: Speci men Type: BLOOD SPECIMENOrdering Facility: [facility] Address: [address] [place] [address] [place] [address] Performed By: #### 5 7021-8 ####BELLOALIREZA MABANK LABIA [id number] [place] [address] [place] Basophils (Bld) [#/Vol] 0.09 10*3/uL <0.11 k/uL [facility] Basophils/100 WBC (Bld) 3.5 % [facility] Differential cell count method Nom (Bld) Auto [facility] Eosinophils (Bld) [#/Vol] 0.09 10*3/uL <0.46 k/uL [facility] Eosinophils/100 WBC (Bld) 3.5 % [facility] Erythrocyte distribution width (RBC) [Ratio] 20.2 % High 11.5 - 15.0 % [facility] Hematocrit (Bld) [Volume fraction] 28.7 % Low 39.0 - 51.0 % [facility] Hemoglobin (Bld) [Mass/Vol] 8.8 g/dL Low 13.0 - 17.0 g/dL [facility] Immature granulocytes (Bld) [#/Vol] <0.10 k/uL [facility] Immature granulocytes/100 WBC (Bld) 0.0 % [facility] Lymphocytes (Bld) [#/Vol] 0.81 10*3/uL Low 1.00 - 4.00 k/uL [facility] Lymphocytes/100 WBC (Bld) 31.6 % [facility] MCH (RBC) [Entitic mass] 34.5 pg High 26.0 - 34.0 pg [facility] MCHC (RBC) [Mass/Vol] 30.7 g/dL 30.5 - 36.0 g/dL [facility] MCV (RBC) [Entitic vol] 112.5 fL High 80.0 - 100.0 fL [facility] Monocytes (Bld) [#/Vol] 0.15 10*3/uL <0.87 k/uL [facility] Monocytes/100 WBC (Bld) 5.9 % [facility] Neutrophils (Bld) [#/Vol] 1.42 10*3/uL Low 1.45 - 7.50 k/uL [facility] Neutrophils/100 WBC (Bld) 55.5 % [facility] Nucleated RBC (Bld) [#/Vol] [facility] Nucleated RBC/100 WBC (Bld) [Ratio] [facility] Platelet mean volume (Bld) [Entitic vol] 10.4 fL 9.0 - 12.7 fL [facility] Platelets (Bld) [#/Vol] 359 10*3/uL 150 - 400 k/uL [facility] RBC (Bld) [#/Vol] 2.55 10*6/uL Low 4.20 - 6.00 m/uL [facility] WBC (Bld) [#/Vol] 2.56 10*3/uL Low 3.70 - 11.00 k/uL [facility] Comprehensive metabolic 2000 panelon 03-09-2023 Albumin [Mass/Vol] 3.5 g/dL Normal 3.5-5.7 [facility] Comment on above: Order Comment: Speci men Type: BLOOD SPECIMENOrdering Facility: [facility] Address: [address] [place] [address] Performed By: #### 2 4323-8 ####[employer] LABCLIA [id number] [address] [place] OF [facility] ALP [Catalytic activity/Vol] 75 U/L Normal 34-104 [facility] Comment on above: Order Comment: Speci men Type: BLOOD SPECIMENOrdering Facility: [facility] Address: [address] [place] [address] Performed By: #### 2 4323-8 ####[place] [employer] LABCLIA [id number] [place] [address] [place] ALT [Catalytic activity/Vol] 27 U/L Normal 7-52 [facility] Comment on above: Order Comment: Speci men Type: BLOOD SPECIMENOrdering Facility: [facility] Address: [address] [place] [address] Performed By: #### 2 4323-8 ####[facility] LABCLIA [id number] [place] [address] [place] Anion gap [Moles/Vol] 5 mmol/L Low 9-18 [facility] Comment on above: Order Comment: Speci men Type: BLOOD SPECIMENOrdering Facility: [facility] Address: [address] [place] [address] Performed By: #### 2 4323-8 ####PEG YANG LABCLIA [id number] [place] [address] [place] AST [Catalytic activity/Vol] 24 U/L Normal 13-39 [facility] Comment on above: Order Comment: Speci men Type: BLOOD SPECIMENOrdering Facility: [facility] Address: [address] [place] [address] Performed By: #### 2 4323-8 ####PEG YANG LABCLIA [id number] [place] [address] [place] Bilirubin [Mass/Vol] 0.8 mg/dL Normal 0.3-1.0 [facility] Comment on above: Order Comment: Speci men Type: BLOOD SPECIMENOrdering Facility: [facility] Address: [address] [place] [address] Result Comment: Use of this assay is not recommended for patients undergoing treatment with eltrombopag due to the potential for falsely elevated results. Performed By: #### 2 4323-8 ####PEG YANG LABCLIA [id number] [place] [address] [place] Calcium [Mass/Vol] 8.6 mg/dL Normal 8.6-10.3 [facility] Comment on above: Order Comment: Speci men Type: BLOOD SPECIMENOrdering Facility: [facility] Address: [address] [place] [address] Performed By: #### 2 4323-8 ####PEG YANG LABCLIA [id number] [place] [address] [place] Chloride [Moles/Vol] 104 mmol/L Normal 101-111 [facility] Comment on above: Order Comment: Speci men Type: BLOOD SPECIMENOrdering Facility: [facility] Address: [address] [place], [place] [address] Performed By: #### 2 4323-8 ####PEG YANG LABCLIA [id number] [place] [address] [place] CO2 [Moles/Vol] 31 mmol/L Normal 21-31 [facility] Comment on above: Order Comment: Speci men Type: BLOOD SPECIMENOrdering Facility: [facility] Address: [address] [place] [address] Performed By: #### 2 4323-8 ####PEG YANG LABCLIA [id number] [place] [address] [place] Creatinine [Mass/Vol] 1.01 mg/dL Normal 0.60-1.30 [facility] Comment on above: Order Comment: Speci men Type: BLOOD SPECIMENOrdering Facility: [facility] Address: [address] [place] [address] Result Comment: Use of this assay is not recommended for patients undergoing treatment with phenindione, due to the potential for falsely depressed results. Performed By: #### 2 4323-8 ####PEG SAUCEDA [employer] LABCLIA [id number] [place] [address] [place] ESTIMATED GLOMERULAR FILTRATION RATE 72 mL/min/1.73m??? Normal >=60 [facility] Comment on above: Order Comment: Speci men Type: BLOOD SPECIMENOrdering Facility: [facility] Address: [address] [place] [address] Result Comment: Concepción mated Glomerular Filtration Rate [...] actual GFR. Performed By: #### 2 4323-8 ####CTALIREZA SAUCEDA [employer] LABCLIA [id number] [place] [address] [place] Glucose [Mass/Vol] 126 mg/dL High 74-99 [facility] Comment on above: Order Comment: Speci men Type: BLOOD SPECIMENOrdering Facility: [facility] Address: [address] [place] [address] Result Comment: The [place] [employer] (ADA) provides guidance for cutoff [...] Standards of Medical Care in Diabetes 2016, [place] [employer]. Diabetes Care. 2016.39(Suppl 1). Performed By: #### 2 4323-8 ####[place] [employer] LABCLIA [id number] [place] [address] [place] Potassium [Moles/Vol] 4.0 mmol/L Normal 3.6-5.1 [facility] Comment on above: Order Comment: Julii men Type: BLOOD SPECIMENOrdering Facility: [facility] Address: [place] [address] Performed By: #### 2 4323-8 ####[facility] [employer] LABCLIA [id number] [place] [address] [place] Protein [Mass/Vol] 5.6 g/dL Low 6.4-8.9 [facility] Comment on above: Order Comment: Speci men Type: BLOOD SPECIMENOrdering Facility: [facility] Address: [address] [place] [address] Performed By: #### 2 4323-8 ####[facility] [employer] LABCLIA [id number] [place] [address] [place] Sodium [Moles/Vol] 140 mmol/L Normal 136-144 [facility] Comment on above: Order Comment: Speci men Type: BLOOD SPECIMENOrdering Facility: [facility] Address: [address] [place] [address] Performed By: #### 2 4323-8 ####PEG [facility] LABCLIA [id number] [address] [place] Urea nitrogen [Mass/Vol] 26 mg/dL High 7-25 [facility] Comment on above: Order Comment: Speci men Type: BLOOD SPECIMENOrdering Facility: [facility] Address: [address] [place] [address] Performed By: #### 2 4323-8 ####CTALIREZA YANG LABCLIA [id number] [address] [place] Albumin [Mass/Vol] 3.5 g/dL 3.5 - 5.7 g/dL [facility] ALP [Catalytic activity/Vol] 75 U/L 34 - 104 U/L [facility] ALT [Catalytic activity/Vol] 27 U/L 7 - 52 U/L [facility] Anion gap [Moles/Vol] 5 mmol/L Low 9 - 18 mmol/L [facility] AST [Catalytic activity/Vol] 24 U/L 13 - 39 U/L [facility] Bilirubin [Mass/Vol] 0.8 mg/dL 0.3 - 1 .0 mg/dL [facility] Calcium [Mass/Vol] 8.6 mg/dL 8.6 - 10. 3 mg/dL [facility] Chloride [Moles/Vol] 104 mmol/L 101 - 1 11 mmol/L [facility] CO2 [Moles/Vol] 31 mmol/L 21 - 31 mmol/L [facility] Creatinine [Mass/Vol] 1.01 mg/dL 0.60 - 1.30 mg/dL [facility] Estimated Glomerular Filtration Rate 72 mL/min/1.73m >=60 mL/min/1.7 3m [facility] Glucose [Mass/Vol] 126 mg/dL High 74 - 99 mg/dL [facility] Potassium [Moles/Vol] 4.0 mmol/L 3.6 - 5.1 mmol/L [facility] Protein [Mass/Vol] 5.6 g/dL Low 6.4 - 8.9 g/dL [facility] Sodium [Moles/Vol] 140 mmol/L 136 - 144 mmol/L [facility] Urea nitrogen [Mass/Vol] 26 mg/dL High 7 - 25 mg/dL [facility] CBC W Auto Differential pane l (Bld)on 02-09-2023 Basophils (Bld) [#/Vol] 0.21 10*3/uL High <0.11 [facility] Comment on above: Order Comment: Speci men Type: BLOOD SPECIMENOrdering Facility: [facility] Address: [address] [place] [address] Performed By: #### 5 7021-8 ####[employer] LABCLIA [id number] [place] [address] [place] Basophils/100 WBC (Bld) 5.8 % Normal [facility] Comment on above: Order Comment: Speci men Type: BLOOD SPECIMENOrdering Facility: [facility] Address: [address] [place] [address] Performed By: #### 5 7021-8 ####[facility] LABCLIA [id number] [place] [address] [place] Differential cell count method Nom (Bld) Auto Normal [facility] Comment on above: Order Comment: Speci men Type: BLOOD SPECIMENOrdering Facility: [facility] Address: [address] [place] [address] Performed By: #### 5 7021-8 ####[employer] LABCLIA [id number] [place] [address] [place] Eosinophils (Bld) [#/Vol] 0.07 10*3/uL Normal <0.46 [facility] Comment on above: Order Comment: Speci men Type: BLOOD SPECIMENOrdering Facility: [facility] Address: [address] [place] [address] Performed By: #### 5 7021-8 ####[employer] [facility] LABCLIA [id number] [place] [address] [place] Eosinophils/100 WBC (Bld) 1.9 % Normal [facility] Comment on above: Order Comment: Speci men Type: BLOOD SPECIMENOrdering Facility: [facility] Address: [address] [place] [address] Performed By: #### 5 7021-8 ####PEG YANG LABCLIA [id number] [place] [address] [place] Erythrocyte distribution width (RBC) [Ratio] 19.0 % High 11.5-15.0 [facility] Comment on above: Order Comment: Speci men Type: BLOOD SPECIMENOrdering Facility: [facility] Address: [address] [place] [address] Performed By: #### 5 7021-8 ####CTALIREZA [facility] [employer] LABCLIA [id number] [place] [address] [place] Hematocrit (Bld) [Volume fraction] 27.5 % Low 39.0-51.0 [facility] Comment on above: Order Comment: Speci men Type: BLOOD SPECIMENOrdering Facility: [facility] Address: [address] [place] [address] Performed By: #### 5 7021-8 ####CTALIREZA SAUCEDA [facility] LABCLIA [id number] [place] [address] [place] Hemoglobin (Bld) [Mass/Vol] 8.6 g/dL Low 13.0-17.0 [facility] Comment on above: Order Comment: Speci men Type: BLOOD SPECIMENOrdering Facility: [facility] Address: [address] [place] [address] Performed By: #### 5 7021-8 ####[place] [facility] LABCLIA [id number] [place] [address] [place] Immature granulocytes (Bld) [#/Vol] 10*3/uL Normal <0.10 [facility] Comment on above: Order Comment: Speci men Type: BLOOD SPECIMENOrdering Facility: [facility] Address: [address] [place] [address] Performed By: #### 5 7021-8 ####PEG YANG LABCLIA [id number] [place] [address] [facility] Immature granulocytes/100 WBC (Bld) 0.3 % Normal [facility] Comment on above: Order Comment: Speci men Type: BLOOD SPECIMENOrdering Facility: [facility] Address: [address] [place] [address] Performed By: #### 5 7021-8 ####PEG [employer] LABCLIA [id number] [place] [address] [place] Lymphocytes (Bld) [#/Vol] 0.90 10*3/uL Low 1.00-4.00 [facility] Comment on above: Order Comment: Speci men Type: BLOOD SPECIMENOrdering Facility: [facility] Address: [address] [place] [address] Performed By: #### 5 7021-8 ####Bright AutomotiveALIREZA [employer] LABCLIA [id number] [place] [address] [place] [facility] Lymphocytes/100 WBC (Bld) 24.9 % Normal [facility] Comment on above: Order Comment: Speci men Type: BLOOD SPECIMENOrdering Facility: [facility] Address: [address] [place] [address] Performed By: #### 5 7021-8 ####CTALIREZA [employer] GREEN LABCLIA [id number] [place] [address] [place] MCH (RBC) [Entitic mass] 36.0 pg High 26.0-34.0 [facility] Comment on above: Order Comment: Speci men Type: BLOOD SPECIMENOrdering Facility: [facility] Address: [address] [place] [address] Performed By: #### 5 7021-8 ####AK[facility]IRE[facility] LABCLIA [id number] [place] [address] [place] MCHC (RBC) [Mass/Vol] 31.3 g/dL Normal 30.5-36.0 [facility] Comment on above: Order Comment: Speci men Type: BLOOD SPECIMENOrdering Facility: [facility] Address: [address] [place] [address] Performed By: #### 5 7021-8 ####PEG YANG LABCLIA [id number] [place] [address] [place] MCV (RBC) [Entitic vol] 115.1 fL High 80.0-100.0 [facility] Comment on above: Order Comment: Speci men Type: BLOOD SPECIMENOrdering Facility: [facility] Address: [address] [place] [address] Performed By: #### 5 7021-8 ####CTALIREZA [facility] LABCLIA [id number] [address] [place] Monocytes (Bld) [#/Vol] 0.17 10*3/uL Normal <0.87 [facility] Comment on above: Order Comment: Speci men Type: BLOOD SPECIMENOrdering Facility: [facility] Address: [address] [place] [address] Performed By: #### 5 7021-8 ####CTALIREZA YANG LABCLIA [id number] [place] [address] [place] Monocytes/100 WBC (Bld) 4.7 % Normal [facility] Comment on above: Order Comment: Speci men Type: BLOOD SPECIMENOrdering Facility: [facility] Address: [address] [place] [address] Performed By: #### 5 7021-8 ####PEG [facility] GREEN LABCLIA [id number] [place] [address] [place] Neutrophils (Bld) [#/Vol] 2.26 10*3/uL Normal 1.45-7.50 [facility] Comment on above: Order Comment: Speci men Type: BLOOD SPECIMENOrdering Facility: [facility] Address: [address] [place] [address] Performed By: #### 5 7021-8 ####PEG SAUCEDA GREEN LABCLIA [id number] [place] [address] [place] Neutrophils/100 WBC (Bld) 62.4 % Normal [facility] Comment on above: Order Comment: Speci men Type: BLOOD SPECIMENOrdering Facility: [facility] Address: [address] [place] [address] Performed By: #### 5 7021-8 ####PEG SAUCEDA GREEN LABCLIA [id number] [place] [address] [place] Nucleated RBC (Bld) [#/Vol] Normal [facility] Comment on above: Order Comment: Speci men Type: BLOOD SPECIMENOrdering Facility: [facility] Address: [address] [place] [address] Performed By: #### 5 7021-8 ####CTALIREZA SAUCEDA GREEN LABCLIA [id number] [place] [address] [place] Nucleated RBC/100 WBC (Bld) [Ratio] Normal [facility] Comment on above: Order Comment: Speci men Type: BLOOD SPECIMENOrdering Facility: [facility] Address: [address] [place] [address] Performed By: #### 5 7021-8 ####PEG SAUCEDA GREEN LABCLIA [id number] [place] [address] [place] Platelet mean volume (Bld) [Entitic vol] 11.2 fL Normal 9.0-12.7 [facility] Comment on above: Order Comment: Speci men Type: BLOOD SPECIMENOrdering Facility: [facility] Address: [address] [place] [address] Performed By: #### 5 7021-8 ####PEG [facility] GRE[facility] LABCLIA [id number] [place] [address] [place] Platelets (Bld) [#/Vol] 289 10*3/uL Normal 150-400 [facility] Comment on above: Order Comment: Speci men Type: BLOOD SPECIMENOrdering Facility: [facility] Address: [address] [place] [address] Performed By: #### 5 7021-8 ####[facility] LABCLIA [id number] [place] [address] [facility] RBC (Bld) [#/Vol] 2.39 10*6/uL Low 4.20-6.00 [facility] Comment on above: Order Comment: Speci men Type: BLOOD SPECIMENOrdering Facility: [facility] Address: [address] [place] [address] Performed By: #### 5 7021-8 ####[facility] LABCLIA [id number] [address] [facility] WBC (Bld) [#/Vol] 3.62 10*3/uL Low 3.70-11.00 [facility] Comment on above: Order Comment: Speci men Type: BLOOD SPECIMENOrdering Facility: [facility] Address: [address] [place] [address] Performed By: #### 5 7021-8 ####[facility] LABCLIA [id number] [place] [address] [place] Basophils (Bld) [#/Vol] 0.21 10*3/uL High <0.11 k/uL [facility] Basophils/100 WBC (Bld) 5.8 % [facility] Differential cell count method Nom (Bld) Auto [facility] Eosinophils (Bld) [#/Vol] 0.07 10*3/uL <0.46 k/uL [facility] Eosinophils/100 WBC (Bld) 1.9 % [facility] Erythrocyte distribution width (RBC) [Ratio] 19.0 % High 11.5 - 15.0 % [facility] Hematocrit (Bld) [Volume fraction] 27.5 % Low 39.0 - 51.0 % [facility] Hemoglobin (Bld) [Mass/Vol] 8.6 g/dL Low 13.0 - 17.0 g/dL [facility] Immature granulocytes (Bld) [#/Vol] <0.10 k/uL [facility] Immature granulocytes/100 WBC (Bld) 0.3 % [facility] Lymphocytes (Bld) [#/Vol] 0.90 10*3/uL Low 1.00 - 4.00 k/uL [facility] Lymphocytes/100 WBC (Bld) 24.9 % [facility] MCH (RBC) [Entitic mass] 36.0 pg High 26.0 - 34.0 pg [facility] MCHC (RBC) [Mass/Vol] 31.3 g/dL 30.5 - 36.0 g/dL [facility] MCV (RBC) [Entitic vol] 115.1 fL High 80.0 - 100.0 fL [facility] Monocytes (Bld) [#/Vol] 0.17 10*3/uL <0.87 k/uL [facility] Monocytes/100 WBC (Bld) 4.7 % [facility] Neutrophils (Bld) [#/Vol] 2.26 10*3/uL 1.45 - 7.50 k/uL [facility] Neutrophils/100 WBC (Bld) 62.4 % [facility] Nucleated RBC (Bld) [#/Vol] [facility] Nucleated RBC/100 WBC (Bld) [Ratio] [facility] Platelet mean volume (Bld) [Entitic vol] 11.2 fL 9.0 - 12.7 fL [facility] Platelets (Bld) [#/Vol] 289 10*3/uL 150 - 400 k/uL [facility] RBC (Bld) [#/Vol] 2.39 10*6/uL Low 4.20 - 6.00 m/uL [facility] WBC (Bld) [#/Vol] 3.62 10*3/uL Low 3.70 - 11.00 k/uL [facility] Comprehensive metabolic 2000 panelon 02-09-2023 Albumin [Mass/Vol] 3.5 g/dL Normal 3.5-5.7 [facility] Comment on above: Order Comment: Speci men Type: BLOOD SPECIMENOrdering Facility: [facility] Address: [address] [place] [address] Performed By: #### 2 4323-8 ####PEG SAUCEDA GREEN LABCLIA [id number] [place] [address] [place] ALP [Catalytic activity/Vol] 58 U/L Normal 34-104 [facility] Comment on above: Order Comment: Speci men Type: BLOOD SPECIMENOrdering Facility: [facility] Address: [address] [place] [address] Performed By: #### 2 4323-8 ####PEG SAUCEDA GREEN LABCLIA [id number] [address] [facility] ALT [Catalytic activity/Vol] 22 U/L Normal 7-52 [facility] Comment on above: Order Comment: Speci men Type: BLOOD SPECIMENOrdering Facility: [facility] Address: [address] [place] [address] Performed By: #### 2 4323-8 ####PEG SAUCEDA GREEN LABCLIA [id number] [place] [address] [place] Anion gap [Moles/Vol] 3 mmol/L Low 9-18 [facility] Comment on above: Order Comment: Speci men Type: BLOOD SPECIMENOrdering Facility: [facility] Address: [address] [place] [address] Performed By: #### 2 4323-8 ####PEG SAUCEDA GREEN LABCLIA [id number] [address] [place] AST [Catalytic activity/Vol] 21 U/L Normal 13-39 [facility] Comment on above: Order Comment: Speci men Type: BLOOD SPECIMENOrdering Facility: [facility] Address: [address] [place] [address] Performed By: #### 2 4323-8 ####PEG SAUCEDA GREEN LABCLIA [id number] [place] [address] [place] Bilirubin [Mass/Vol] 1.0 mg/dL Normal 0.3-1.0 [facility] Comment on above: Order Comment: Speci men Type: BLOOD SPECIMENOrdering Facility: [facility] Address: [address] [place] [address] Result Comment: Use of this assay is not recommended for patients undergoing treatment with eltrombopag due to the potential for falsely elevated results. Performed By: #### 2 4323-8 ####Bright AutomotiveALIREZA [email or web address] LABCLIA [id number] [place] [address] [place] Calcium [Mass/Vol] 8.6 mg/dL Normal 8.6-10.3 [facility] Comment on above: Order Comment: Speci men Type: BLOOD SPECIMENOrdering Facility: [facility] Address: [address] [place] [address] Performed By: #### 2 4323-8 ####BELLOALIREZA [employer] LABCLIA [id number] [place] [address] [place] Chloride [Moles/Vol] 103 mmol/L Normal 101-111 [facility] Comment on above: Order Comment: Speci men Type: BLOOD SPECIMENOrdering Facility: [facility] Address: [address] [place] [address] Performed By: #### 2 4323-8 ####BELLOALIREZA [employer] LABCLIA [id number] [place] [address] [place] CO2 [Moles/Vol] 30 mmol/L Normal 21-31 [facility] Comment on above: Order Comment: Speci men Type: BLOOD SPECIMENOrdering Facility: [facility] Address: [address] [place] [address] Performed By: #### 2 4323-8 ####Bright AutomotiveMAN [facility] [employer] LABCLIA [id number] [place] [address] [place] Creatinine [Mass/Vol] 1.04 mg/dL Normal 0.60-1.30 [facility] Comment on above: Order Comment: Speci men Type: BLOOD SPECIMENOrdering Facility: [facility] Address: [address] [place] [address] Result Comment: Use of this assay is not recommended for patients undergoing treatment with phenindione, due to the potential for falsely depressed results. Performed By: #### 2 4323-8 ####PEG YANG LABCLIA [id number] [place] [address] [place] ESTIMATED GLOMERULAR FILTRATION RATE 69 mL/min/1.73m??? Normal >=60 [facility] Comment on above: Order Comment: Elfego gilbert Type: BLOOD SPECIMENOrdering Facility: [facility] Address: [place] [address] Result Comment: Concepción mated Glomerular Filtration Rate [...] Performed By: #### 2 4323-8 ####PEG SAUCEDA [employer] LABCLIA [id number] [place] [address] [place] Glucose [Mass/Vol] 160 mg/dL High 74-99 [facility] Comment on above: Order Comment: Elfego gilbert Type: BLOOD SPECIMENOrdering Facility: [facility] Address: [place] [address] Result Comment: The [place] [employer] (ADA) provides guidance for cutoff [...] Standards of Medical Care in Diabetes 2016, [place] [employer]. Diabetes Care. 2016.39(Suppl 1). Performed By: #### 2 4323-8 ####Bright AutomotiveALIREZA [employer] LABCLIA [id number] [place] [address] [place] Potassium [Moles/Vol] 4.0 mmol/L Normal 3.6-5.1 [facility] Comment on above: Order Comment: Speci men Type: BLOOD SPECIMENOrdering Facility: [facility] Address: [address] [place] [address] Performed By: #### 2 4323-8 ####[facility] [employer] LABCLIA [id number] [place] [address] [place] Protein [Mass/Vol] 5.4 g/dL Low 6.4-8.9 [facility] Comment on above: Order Comment: Speci men Type: BLOOD SPECIMENOrdering Facility: [facility] Address: [address] [place] [address] Performed By: #### 2 4323-8 ####[place] [employer] LABCLIA [id number] [place] [address] [place] [facility] Sodium [Moles/Vol] 136 mmol/L Normal 136-144 [facility] Comment on above: Order Comment: Speci men Type: BLOOD SPECIMENOrdering Facility: [facility] Address: [address] [place] [address] Performed By: #### 2 4323-8 ####[place] [employer] LABCLIA [id number] [place] [address] [place] Urea nitrogen [Mass/Vol] 23 mg/dL Normal 7-25 [facility] Comment on above: Order Comment: Speci men Type: BLOOD SPECIMENOrdering Facility: [facility] Address: [address] [place] [address] Performed By: #### 2 4323-8 ####[facility] [email or web address] LABCLIA [id number] [place] [address] [place] Albumin [Mass/Vol] 3.5 g/dL 3.5 - 5.7 g/dL [facility] ALP [Catalytic activity/Vol] 58 U/L 34 - 104 U/L [facility] ALT [Catalytic activity/Vol] 22 U/L 7 - 52 U/L [facility] Anion gap [Moles/Vol] 3 mmol/L Low 9 - 18 mmol/L [facility] AST [Catalytic activity/Vol] 21 U/L 13 - 39 U/L [facility] Bilirubin [Mass/Vol] 1.0 mg/dL 0.3 - 1 .0 mg/dL [facility] Calcium [Mass/Vol] 8.6 mg/dL 8.6 - 10. 3 mg/dL [facility] Chloride [Moles/Vol] 103 mmol/L 101 - 1 11 mmol/L [facility] CO2 [Moles/Vol] 30 mmol/L 21 - 31 mmol/L [facility] Creatinine [Mass/Vol] 1.04 mg/dL 0.60 - 1.30 mg/dL [facility] Estimated Glomerular Filtration Rate 69 mL/min/1.73m >=60 mL/min/1.7 3m [facility] Glucose [Mass/Vol] 160 mg/dL High 74 - 99 mg/dL [facility] Potassium [Moles/Vol] 4.0 mmol/L 3.6 - 5.1 mmol/L [facility] Protein [Mass/Vol] 5.4 g/dL Low 6.4 - 8.9 g/dL [facility] Sodium [Moles/Vol] 136 mmol/L 136 - 144 mmol/L [facility] Urea nitrogen [Mass/Vol] 23 mg/dL 7 - 25 mg/dL [facility] CBC W Auto Differential pane l (Bld)on 02-04-2023 Basophils (Bld) [#/Vol] 0.07 10*3/uL Normal <0.11 [facility] Comment on above: Order Comment: Speci men Type: BLOOD SPECIMENOrdering Facility: [facility] Address: [address] [place] [address] Performed By: #### 5 7021-8 ####[facility] LABCLIA [id number] [place] [id number] [place] Basophils/100 WBC (Bld) 2.7 % Normal [facility] Comment on above: Order Comment: Speci men Type: BLOOD SPECIMENOrdering Facility: [facility] Address: [address] [place] [address] Performed By: #### 5 7021-8 ####BELLOALIREZA SAUCEDA GREEN LABCLIA [id number] [place] [address] [place] Differential cell count method Nom (Bld) Auto Normal [facility] Comment on above: Order Comment: Speci men Type: BLOOD SPECIMENOrdering Facility: [facility] Address: [address] [place] [address] Performed By: #### 5 7021-8 ####BELLOALIREZA [facility] LABCLIA [id number] [place] [address] [place] Eosinophils (Bld) [#/Vol] 0.05 10*3/uL Normal <0.46 [facility] Comment on above: Order Comment: Speci men Type: BLOOD SPECIMENOrdering Facility: [facility] Address: [address] [place] [address] Performed By: #### 5 7021-8 ####BELLOALIREZA SAUCEDA GREEN LABCLIA [id number] [address] [place] Eosinophils/100 WBC (Bld) 2.0 % Normal [facility] Comment on above: Order Comment: Speci men Type: BLOOD SPECIMENOrdering Facility: [facility] Address: [address] [place] [address] Performed By: #### 5 7021-8 ####[facility] LABCLIA [id number] [place] [address] [place] Erythrocyte distribution width (RBC) [Ratio] 19.4 % High 11.5-15.0 [facility] Comment on above: Order Comment: Speci men Type: BLOOD SPECIMENOrdering Facility: [facility] Address: [address] [place] [address] Performed By: #### 5 7021-8 ####PEG YANG LABCLIA [id number] [place] [address] [place] Hematocrit (Bld) [Volume fraction] 28.7 % Low 39.0-51.0 [facility] Comment on above: Order Comment: Speci men Type: BLOOD SPECIMENOrdering Facility: [facility] Address: [address] [place] [address] Performed By: #### 5 7021-8 ####PEG YANG LABCLIA [id number] [place] [address] [place] Hemoglobin (Bld) [Mass/Vol] 9.2 g/dL Low 13.0-17.0 [facility] Comment on above: Order Comment: Speci men Type: BLOOD SPECIMENOrdering Facility: [facility] Address: [address] [place] [address] Performed By: #### 5 7021-8 ####CTALIREZA YANG LABCLIA [id number] [address] [place] Immature granulocytes (Bld) [#/Vol] 10*3/uL Normal <0.10 [facility] Comment on above: Order Comment: Speci men Type: BLOOD SPECIMENOrdering Facility: [facility] Address: [address] [place] [address] Performed By: #### 5 7021-8 ####CTALIREZA YANG LABCLIA [id number] [place] [address] [facility] [place] Immature granulocytes/100 WBC (Bld) 0.4 % Normal [facility] Comment on above: Order Comment: Speci men Type: BLOOD SPECIMENOrdering Facility: [facility] Address: [address] [place] [address] Performed By: #### 5 7021-8 ####PEG YANG LABCLIA [id number] [place] [address] [place] Lymphocytes (Bld) [#/Vol] 0.90 10*3/uL Low 1.00-4.00 [facility] Comment on above: Order Comment: Speci men Type: BLOOD SPECIMENOrdering Facility: [facility] Address: [address] [place] [address] Performed By: #### 5 7021-8 ####[facility] LABCLIA [id number] [address] Lymphocytes/100 WBC (Bld) 35.3 % Normal [facility] Comment on above: Order Comment: Speci men Type: BLOOD SPECIMENOrdering Facility: [facility] Address: [address] [place] [address] Performed By: #### 5 7021-8 ####[facility] LABIA [id number] [address] [place] MCH (RBC) [Entitic mass] 37.9 pg High 26.0-34.0 [facility] Comment on above: Order Comment: Speci men Type: BLOOD SPECIMENOrdering Facility: [facility] Address: [address] [place] [address] Performed By: #### 5 7021-8 ####[facility] LABIA [id number] [address] [place] MCHC (RBC) [Mass/Vol] 32.1 g/dL Normal 30.5-36.0 [facility] Comment on above: Order Comment: Speci men Type: BLOOD SPECIMENOrdering Facility: [facility] Address: [address] [place] [address] Performed By: #### 5 7021-8 ####[facility] LABCLIA [id number] [place] [address] [place] [facility] MCV (RBC) [Entitic vol] 118.1 fL High 80.0-100.0 [facility] Comment on above: Order Comment: Speci men Type: BLOOD SPECIMENOrdering Facility: [facility] Address: [address] [place], [place] [address] Performed By: #### 5 7021-8 ####PEG SAUCEDA GREEN LABCLIA [id number] [place] [address] [place] Monocytes (Bld) [#/Vol] 0.19 10*3/uL Normal <0.87 [facility] Comment on above: Order Comment: Speci men Type: BLOOD SPECIMENOrdering Facility: [facility] Address: [address] [place] [address] Performed By: #### 5 7021-8 ####PEG SAUCEDA GREEN LABCLIA [id number] [place] [address] [place] Monocytes/100 WBC (Bld) 7.5 % Normal [facility] Comment on above: Order Comment: Speci men Type: BLOOD SPECIMENOrdering Facility: [facility] Address: [address] [place] [address] Performed By: #### 5 7021-8 ####CTALIREZA SAUCEDA GREEN LABCLIA [id number] [place] [address] [place] Neutrophils (Bld) [#/Vol] 1.33 10*3/uL Low 1.45-7.50 [facility] Comment on above: Order Comment: Speci men Type: BLOOD SPECIMENOrdering Facility: [facility] Address: [address] [place] [address] Performed By: #### 5 7021-8 ####CTALIREZA SAUCEDA GREEN LABCLIA [id number] [place] [address] [place] Neutrophils/100 WBC (Bld) 52.1 % Normal [facility] Comment on above: Order Comment: Speci men Type: BLOOD SPECIMENOrdering Facility: [facility] Address: [address] [place] [address] Performed By: #### 5 7021-8 ####[place] LABCLIA [id number] [place] [address] [place] Nucleated RBC (Bld) [#/Vol] Normal [facility] Comment on above: Order Comment: Speci men Type: BLOOD SPECIMENOrdering Facility: [facility] Address: [address] [place] [address] Performed By: #### 5 7021-8 ####PEG YANG LABCLIA [id number] [place] [address] [place] Nucleated RBC/100 WBC (Bld) [Ratio] Normal [facility] Comment on above: Order Comment: Speci men Type: BLOOD SPECIMENOrdering Facility: [facility] Address: [address] [place] [address] Performed By: #### 5 7021-8 ####BELLOALIREZA SACUEDA [employer] LABCLIA [id number] [place] [address] [place] Platelet mean volume (Bld) [Entitic vol] 12.2 fL Normal 9.0-12.7 [facility] Comment on above: Order Comment: Speci men Type: BLOOD SPECIMENOrdering Facility: [facility] Address: [address] [place] [address] Performed By: #### 5 7021-8 ####CTALIREZA YANG LABCLIA [id number] [place] [address] [place] Platelets (Bld) [#/Vol] 173 10*3/uL Normal 150-400 [facility] Comment on above: Order Comment: Speci men Type: BLOOD SPECIMENOrdering Facility: [facility] Address: [address] Performed By: #### 5 7021-8 ####[place] GRE[facility] LABCLIA [id number] [place] [address] [place] RBC (Bld) [#/Vol] 2.43 10*6/uL Low 4.20-6.00 [facility] Comment on above: Order Comment: Speci men Type: BLOOD SPECIMENOrdering Facility: [facility] Address: [address] Performed By: #### 5 7021-8 ####PEG SAUCEDA GREEN LABCLIA [id number] [place] [address] [place] WBC (Bld) [#/Vol] 2.55 10*3/uL Low 3.70-11.00 [facility] Comment on above: Order Comment: Speci men Type: BLOOD SPECIMENOrdering Facility: [facility] Address: [address] [address] Performed By: #### 5 7021-8 ####[facility] LABCLIA [id number] [place] [address] [facility] [place] CNOVSPon 02-04-2023 CNOVSP Normal [facility] Comprehensive metabolic 2000 panelon 02-04-2023 Albumin [Mass/Vol] 3.7 g/dL Normal 3.5-5.7 [facility] Comment on above: Order Comment: Speci men Type: BLOOD SPECIMENOrdering Facility: [facility] Address: [address] [place] [address] Performed By: #### 2 4323-8 ####CTALIREZA YANG LABCLIA [id number] [address] [place] ALP [Catalytic activity/Vol] 68 U/L Normal 34-104 [facility] Comment on above: Order Comment: Speci men Type: BLOOD SPECIMENOrdering Facility: [facility] Address: [address] [place] [address] Performed By: #### 2 4323-8 ####CTALIREZA SAUCEDA GREEN LABCLIA [id number] [place] [address] [facility] ALT [Catalytic activity/Vol] 27 U/L Normal 7-52 [facility] Comment on above: Order Comment: Speci men Type: BLOOD SPECIMENOrdering Facility: [facility] Address: [address] [address] Performed By: #### 2 4323-8 ####PEG SAUCEDA GREEN LABCLIA [id number] [place] [address] [place] Anion gap [Moles/Vol] 6 mmol/L Low 9-18 [facility] Comment on above: Order Comment: Speci men Type: BLOOD SPECIMENOrdering Facility: [facility] Address: [address] [place] [address] Performed By: #### 2 4323-8 ####CTALIREZA [facility] [employer] LABCLIA [id number] [place] [address] [place] AST [Catalytic activity/Vol] 22 U/L Normal 13-39 [facility] Comment on above: Order Comment: Speci men Type: BLOOD SPECIMENOrdering Facility: [facility] Address: [address] [place] [address] Performed By: #### 2 4323-8 ####[facility] [employer] LABCLIA [id number] [place] [address] [place] Bilirubin [Mass/Vol] 1.0 mg/dL Normal 0.3-1.0 [facility] Comment on above: Order Comment: Speci men Type: BLOOD SPECIMENOrdering Facility: [facility] Address: [address] [place] [address] Result Comment: Use of this assay is not recommended for patients undergoing treatment with eltrombopag due to the potential for falsely elevated results. Performed By: #### 2 4323-8 ####[facility] GREEN LABCLIA [id number] [place] [address] [place] Calcium [Mass/Vol] 8.7 mg/dL Normal 8.6-10.3 [facility] Comment on above: Order Comment: Speci men Type: BLOOD SPECIMENOrdering Facility: [facility] Address: [address] [place] [address] Performed By: #### 2 4323-8 ####[place] [employer] GREEN LABCLIA [id number] [place] [address] [place] Chloride [Moles/Vol] 104 mmol/L Normal 101-111 [facility] Comment on above: Order Comment: Speci men Type: BLOOD SPECIMENOrdering Facility: [facility] Address: [address] [place] [address] Performed By: #### 2 4323-8 ####[facility] LABCLIA [id number] [place] [address] [place] CO2 [Moles/Vol] 31 mmol/L Normal 21-31 [facility] Comment on above: Order Comment: Speci men Type: BLOOD SPECIMENOrdering Facility: [facility] Address: [address] [place] [address] Performed By: #### 2 4323-8 ####[facility] LABCLIA [id number] [place] [address] [place] [facility] Creatinine [Mass/Vol] 1.15 mg/dL Normal 0.60-1.30 [facility] Comment on above: Order Comment: Speci men Type: BLOOD SPECIMENOrdering Facility: [facility] Address: [address] [place] [address] Result Comment: Use of this assay is not recommended for patients undergoing treatment with phenindione, due to the potential for falsely depressed results. Performed By: #### 2 4323-8 ####[facility] LABCLIA [id number] [place] [address] [place] [facility] ESTIMATED GLOMERULAR FILTRATION RATE 62 mL/min/1.73m??? Normal >=60 [facility] Comment on above: Order Comment: Speci men Type: BLOOD SPECIMENOrdering Facility: [facility] Address: [address] [place] [address] Result Comment: Concepción mated Glomerular Filtration Rate [...] actual GFR. Performed By: #### 2 4323-8 ####[facility] [employer] LABIA [id number] [place] [address] [place] Glucose [Mass/Vol] 109 mg/dL High 74-99 [facility] Comment on above: Order Comment: Speci men Type: BLOOD SPECIMENOrdering Facility: [facility] Address: [address] [place] [address] Result Comment: The [place] Diabetes Association (ADA) provides guidance for cutoff [...] Standards of Medical Care in Diabetes 2016, [place] [employer]. Diabetes Care. 2016.39(Suppl 1). Performed By: #### 2 4323-8 ####[facility] [employer] LABCLIA [id number] [place] [address] [place] Potassium [Moles/Vol] 4.4 mmol/L Normal 3.6-5.1 [facility] Comment on above: Order Comment: Speci men Type: BLOOD SPECIMENOrdering Facility: [facility] Address: [address] [place] [address] Performed By: #### 2 4323-8 ####[facility] LABIA [id number] [place] [address] [place] Protein [Mass/Vol] 6.0 g/dL Low 6.4-8.9 [facility] Comment on above: Order Comment: Speci men Type: BLOOD SPECIMENOrdering Facility: [facility] Address: [address] [place] [address] Performed By: #### 2 4323-8 ####CTALIREZA SAUCEDA GREEN LABCLIA [id number] [place] [address] [place] Sodium [Moles/Vol] 141 mmol/L Normal 136-144 [facility] Comment on above: Order Comment: Speci men Type: BLOOD SPECIMENOrdering Facility: [facility] Address: [address] [place] [address] Performed By: #### 2 4323-8 ####[facility] LABCLIA [id number] [place] [address] [place] Urea nitrogen [Mass/Vol] 23 mg/dL Normal 7-25 [facility] Comment on above: Order Comment: Speci men Type: BLOOD SPECIMENOrdering Facility: [facility] Address: [address] [place] [address] Performed By: #### 2 4323-8 ####[facility] LABCLIA [id number] [place] [address] [facility] [place] CNOVSPon 01-14-2023 CNOVSP Normal [facility] CBC W Auto Differential pane l (Bld)on 01-12-2023 Anisocytosis Ql (Bld) Present Normal [facility] Comment on above: Order Comment: Speci men Type: BLOOD SPECIMENOrdering Facility: [facility] Address: [address] [place] [address] Performed By: #### 5 7021-8 ####[facility] LABCLIA [id number] [place] [address] [place] Basophils (Bld) [#/Vol] 0.08 10*3/uL Normal <0.11 [facility] Comment on above: Order Comment: Speci men Type: BLOOD SPECIMENOrdering Facility: [facility] Address: [address] [place] [address] Performed By: #### 5 7021-8 ####[facility] GREEN LABCLIA [id number] [place] [address] [facility] Basophils/100 WBC (Bld) 4.6 % Normal [facility] Comment on above: Order Comment: Speci men Type: BLOOD SPECIMENOrdering Facility: [facility] Address: [address] [place] [address] Performed By: #### 5 7021-8 ####PEG SAUCEDA GREEN LABCLIA [id number] [address] [place] Differential cell count method Nom (Bld) Auto Normal [facility] Comment on above: Order Comment: Speci men Type: BLOOD SPECIMENOrdering Facility: [facility] Address: [address] [place] [address] Performed By: #### 5 7021-8 ####PEG SUACEDA GREEN LABCLIA [id number] [place] [address] [place] Eosinophils (Bld) [#/Vol] 10*3/uL Normal <0.46 [facility] Comment on above: Order Comment: Speci men Type: BLOOD SPECIMENOrdering Facility: [facility] Address: [address] [place] [address] Performed By: #### 5 7021-8 ####PEG SAUCEDA GREEN LABCLIA [id number] [address] [place] Eosinophils/100 WBC (Bld) 1.1 % Normal [facility] Comment on above: Order Comment: Speci men Type: BLOOD SPECIMENOrdering Facility: [facility] Address: [address] [place] [address] Performed By: #### 5 7021-8 ####PEG SAUCEDA GREEN LABCLIA [id number] [place] [address] [place] Erythrocyte distribution width (RBC) [Ratio] 19.5 % High 11.5-15.0 [facility] Comment on above: Order Comment: Speci men Type: BLOOD SPECIMENOrdering Facility: [facility] Address: [address] [place] [address] Performed By: #### 5 7021-8 ####CTALIREZA SAUCEDA GREEN LABCLIA [id number] [place] [address] [place] Giant platelets LM Ql (Bld) Occasional Normal [facility] Comment on above: Order Comment: Speci men Type: BLOOD SPECIMENOrdering Facility: [facility] Address: [address] [place] [address] Performed By: #### 5 7021-8 ####CTALIREZA SAUCEDA GREEN LABCLIA [id number] [place] [address] [place] Hematocrit (Bld) [Volume fraction] 24.2 % Low 39.0-51.0 [facility] Comment on above: Order Comment: Speci men Type: BLOOD SPECIMENOrdering Facility: [facility] Address: [address] [place] [address] Performed By: #### 5 7021-8 ####[facility] LABCLIA [id number] [place] [address] [place] Hemoglobin (Bld) [Mass/Vol] 7.8 g/dL Low 13.0-17.0 [facility] Comment on above: Order Comment: Speci men Type: BLOOD SPECIMENOrdering Facility: [facility] Address: [address] [place] [address] Performed By: #### 5 7021-8 ####[place] [facility] LABCLIA [id number] [place] [address] [place] Immature granulocytes (Bld) [#/Vol] 10*3/uL Normal <0.10 [facility] Comment on above: Order Comment: Speci men Type: BLOOD SPECIMENOrdering Facility: [facility] Address: [address] [place] [address] Performed By: #### 5 7021-8 ####[facility] LABCLIA [id number] [place] [address] [facility] [place] Immature granulocytes/100 WBC (Bld) 0.0 % Normal [facility] Comment on above: Order Comment: Speci men Type: BLOOD SPECIMENOrdering Facility: [facility] Address: [address] [place] [address] Performed By: #### 5 7021-8 ####CTALIREZA YANG LABCLIA [id number] [place] [address] [place] Lymphocytes (Bld) [#/Vol] 0.65 10*3/uL Low 1.00-4.00 [facility] Comment on above: Order Comment: Speci men Type: BLOOD SPECIMENOrdering Facility: [facility] Address: [address] [place] [address] Performed By: #### 5 7021-8 ####[facility] LABCLIA [id number] [address] [place] Lymphocytes/100 WBC (Bld) 37.4 % Normal [facility] Comment on above: Order Comment: Speci men Type: BLOOD SPECIMENOrdering Facility: [facility] Address: [address] [place] [address] Performed By: #### 5 7021-8 ####[facility] LABCLIA [id number] [place] [address] [place] MCH (RBC) [Entitic mass] 39.0 pg High 26.0-34.0 [facility] Comment on above: Order Comment: Speci men Type: BLOOD SPECIMENOrdering Facility: [facility] Address: [address] [place] [address] Performed By: #### 5 7021-8 ####[facility] LABCLIA [id number] [place] [address] [place] MCHC (RBC) [Mass/Vol] 32.2 g/dL Normal 30.5-36.0 [facility] Comment on above: Order Comment: Speci men Type: BLOOD SPECIMENOrdering Facility: [facility] Address: [address] [place] [address] Performed By: #### 5 7021-8 ####[place] [facility] LABCLIA [id number] [place] [address] [place] MCV (RBC) [Entitic vol] 121.0 fL High 80.0-100.0 [facility] Comment on above: Order Comment: Speci men Type: BLOOD SPECIMENOrdering Facility: [facility] Address: [address] [place] [address] Performed By: #### 5 7021-8 ####[facility] LABCLIA [id number] [place] [address] [place] Monocytes (Bld) [#/Vol] 0.14 10*3/uL Normal <0.87 [facility] Comment on above: Order Comment: Speci men Type: BLOOD SPECIMENOrdering Facility: [facility] Address: [address] [place] [address] Performed By: #### 5 7021-8 ####[facility] LABCLIA [id number] [address] [place] Monocytes/100 WBC (Bld) 8.0 % Normal [facility] Comment on above: Order Comment: Speci men Type: BLOOD SPECIMENOrdering Facility: [facility] Address: [address] [place] [address] Performed By: #### 5 7021-8 ####[place] [facility] LABCLIA [id number] [place] [address] [place] Neutrophils (Bld) [#/Vol] 0.85 10*3/uL Low 1.45-7.50 [facility] Comment on above: Order Comment: Speci men Type: BLOOD SPECIMENOrdering Facility: [facility] Address: [address] [place] [address] Performed By: #### 5 7021-8 ####[facility] LABCLIA [id number] [place] [address] [place] Neutrophils/100 WBC (Bld) 48.9 % Normal [facility] Comment on above: Order Comment: Speci men Type: BLOOD SPECIMENOrdering Facility: [facility] Address: [address] [place] [address] Performed By: #### 5 7021-8 ####PEG SAUCEDA GREEN LABCLIA [id number] [place] [address] [place] Nucleated RBC (Bld) [#/Vol] Normal [facility] Comment on above: Order Comment: Speci men Type: BLOOD SPECIMENOrdering Facility: [facility] Address: [address] [place] [address] Performed By: #### 5 7021-8 ####PEG SAUCED[facility] GREEN LABCLIA [id number] [place] [address] [place] Nucleated RBC/100 WBC (Bld) [Ratio] Normal [facility] Comment on above: Order Comment: Speci men Type: BLOOD SPECIMENOrdering Facility: [facility] Address: [address] [place] [address] Performed By: #### 5 7021-8 ####PEG [facility]UC[facility] GREEN LABCLIA [id number] [place] [address] [place] Platelet mean volume (Bld) [Entitic vol] 10.3 fL Normal 9.0-12.7 [facility] Comment on above: Order Comment: Speci men Type: BLOOD SPECIMENOrdering Facility: [facility] Address: [address] [place] [address] Performed By: #### 5 7021-8 ####[place] [facility] LABCLIA [id number] [place] [address] [place] Platelets (Bld) [#/Vol] 633 10*3/uL High 150-400 [facility] Comment on above: Order Comment: Speci men Type: BLOOD SPECIMENOrdering Facility: [facility] Address: [address] [place] [address] Performed By: #### 5 7021-8 ####[facility] LABCLIA [id number] [place] [address] [place] Platelets Estimate (Bld) [#/Vol] Increased Normal [facility] Comment on above: Order Comment: Speci men Type: BLOOD SPECIMENOrdering Facility: [facility] Address: [address] [place] [address] Performed By: #### 5 7021-8 ####[facility] LABCLIA [id number] [place] [address] [place] Polychromasia LM Ql (Bld) Slight Normal [facility] Comment on above: Order Comment: Speci men Type: BLOOD SPECIMENOrdering Facility: [facility] Address: [address] [place] [address] Performed By: #### 5 7021-8 ####PEG SAUCED[facility] GREEN LABCLIA [id number] [place] [address] [place] RBC (Bld) [#/Vol] 2.00 10*6/uL Low 4.20-6.00 [facility] Comment on above: Order Comment: Speci men Type: BLOOD SPECIMENOrdering Facility: [facility] Address: [address] [place] [address] Performed By: #### 5 7021-8 ####PEG SAUCEDA GREEN LABCLIA [id number] [place] [address] [place] RBC FRAGMENTS Few Abnormal None Seen [facility] Comment on above: Order Comment: Speci men Type: BLOOD SPECIMENOrdering Facility: [facility] Address: [address] [place] [address] Performed By: #### 5 7021-8 ####[facility] LABCLIA [id number] [place] [address] [facility] RED CELL MORPH Reviewed: see result s of individual morphologies Normal [facility] Comment on above: Order Comment: Speci men Type: BLOOD SPECIMENOrdering Facility: [facility] Address: [address] [id number] Performed By: #### 5 7021-8 ####CTALIREZA YANG LABCLIA [id number] [place] [address] [place] [facility] WBC (Bld) [#/Vol] 1.74 10*3/uL Low 3.70-11.00 [facility] Comment on above: Order Comment: Speci men Type: BLOOD SPECIMENOrdering Facility: [facility] Address: [address] [place] [address] Performed By: #### 5 7021-8 ####PEG YANG LABCLIA [id number] [place] [address] [place] Anisocytosis Ql (Bld) Present [facility] Basophils (Bld) [#/Vol] 0.08 10*3/uL <0.11 k/uL [facility] Basophils/100 WBC (Bld) 4.6 % [facility] Differential cell count method Nom (Bld) Auto [facility] Eosinophils (Bld) [#/Vol] <0.46 k/uL [facility] Eosinophils/100 WBC (Bld) 1.1 % [facility] Erythrocyte distribution width (RBC) [Ratio] 19.5 % High 11.5 - 15.0 % [facility] Giant platelets LM Ql (Bld) Occasional [facility] Hematocrit (Bld) [Volume fraction] 24.2 % Low 39.0 - 51.0 % [facility] Hemoglobin (Bld) [Mass/Vol] 7.8 g/dL Low 13.0 - 17.0 g/dL [facility] Immature granulocytes (Bld) [#/Vol] <0.10 k/uL [facility] Immature granulocytes/100 WBC (Bld) 0.0 % [facility] Lymphocytes (Bld) [#/Vol] 0.65 10*3/uL Low 1.00 - 4.00 k/uL [facility] Lymphocytes/100 WBC (Bld) 37.4 % [facility] MCH (RBC) [Entitic mass] 39.0 pg High 26.0 - 34.0 pg [facility] MCHC (RBC) [Mass/Vol] 32.2 g/dL 30.5 - 36.0 g/dL [facility] MCV (RBC) [Entitic vol] 121.0 fL High 80.0 - 100.0 fL [facility] Monocytes (Bld) [#/Vol] 0.14 10*3/uL <0.87 k/uL [facility] Monocytes/100 WBC (Bld) 8.0 % [facility] Neutrophils (Bld) [#/Vol] 0.85 10*3/uL Low 1.45 - 7.50 k/uL [facility] Neutrophils/100 WBC (Bld) 48.9 % [facility] Nucleated RBC (Bld) [#/Vol] [facility] Nucleated RBC/100 WBC (Bld) [Ratio] [facility] Platelet mean volume (Bld) [Entitic vol] 10.3 fL 9.0 - 12.7 fL [facility] Platelets (Bld) [#/Vol] 633 10*3/uL High 150 - 400 k/uL [facility] Platelets Estimate (Bld) [#/Vol] Increased [facility] Polychromasia LM Ql (Bld) Slight [facility] RBC (Bld) [#/Vol] 2.00 10*6/uL Low 4.20 - 6.00 m/uL [facility] RBC Fragments Few Abnormal None Seen [facility] Red Cell Morph Reviewed: see result s of individual morphologies [facility] WBC (Bld) [#/Vol] 1.74 10*3/uL Low 3.70 - 11.00 k/uL [facility] Comprehensive metabolic 2000 panelon 01-12-2023 Albumin [Mass/Vol] 3.6 g/dL Normal 3.5-5.7 [facility] Comment on above: Order Comment: Elfego gilbert Type: BLOOD SPECIMENOrdering Facility: [facility] Address: [address] [place] [address] Performed By: #### 2 4323-8 ####CTALIREZA YANG LABDEENA [id number] [place] [address] [place] ALP [Catalytic activity/Vol] 60 U/L Normal 34-104 [facility] Comment on above: Order Comment: Elfego gilbert Type: BLOOD SPECIMENOrdering Facility: [facility] Address: [address] [place] [address] Performed By: #### 2 4323-8 ####[facility] LABCLIA [id number] [address] [place] ALT [Catalytic activity/Vol] 19 U/L Normal 7-52 [facility] Comment on above: Order Comment: Speci men Type: BLOOD SPECIMENOrdering Facility: [facility] Address: [address] [place] [address] Performed By: #### 2 4323-8 ####[facility] LABCLIA [id number] [place] [address] [place] Anion gap [Moles/Vol] 2 mmol/L Low 9-18 [facility] Comment on above: Order Comment: Speci men Type: BLOOD SPECIMENOrdering Facility: [facility] Address: [address] [place] [address] Performed By: #### 2 4323-8 ####CTALIREZA [facility] GREEN LABCLIA [id number] [address] [place] AST [Catalytic activity/Vol] 20 U/L Normal 13-39 [facility] Comment on above: Order Comment: Speci men Type: BLOOD SPECIMENOrdering Facility: [facility] Address: [address] [place] [address] Performed By: #### 2 4323-8 ####[facility] LABCLIA [id number] [place] [address] [place] Bilirubin [Mass/Vol] 0.9 mg/dL Normal 0.3-1.0 [facility] Comment on above: Order Comment: Speci men Type: BLOOD SPECIMENOrdering Facility: [facility] Address: [address] [place] [address] Result Comment: Use of this assay is not recommended for patients undergoing treatment with eltrombopag due to the potential for falsely elevated results. Performed By: #### 2 4323-8 ####[facility] [employer] [facility] LABCLIA [id number] [place] [address] [place] Calcium [Mass/Vol] 8.5 mg/dL Low 8.6-10.3 [facility] Comment on above: Order Comment: Speci men Type: BLOOD SPECIMENOrdering Facility: [facility] Address: [address] [place] [address] Performed By: #### 2 4323-8 ####[facility] [employer] LABCLIA [id number] [place] [address] [place] Chloride [Moles/Vol] 103 mmol/L Normal 101-111 [facility] Comment on above: Order Comment: Speci men Type: BLOOD SPECIMENOrdering Facility: [facility] Address: [address] [place] [address] Performed By: #### 2 4323-8 ####[facility] [employer] LABCLIA [id number] [place] [address] [place] [facility] CO2 [Moles/Vol] 34 mmol/L High 21-31 [facility] Comment on above: Order Comment: Speci men Type: BLOOD SPECIMENOrdering Facility: [facility] Address: [address] [place] [address] Performed By: #### 2 4323-8 ####[place] [email or web address] LABCLIA [id number] [place] [address] [place] Creatinine [Mass/Vol] 1.12 mg/dL Normal 0.60-1.30 [facility] Comment on above: Order Comment: Speci men Type: BLOOD SPECIMENOrdering Facility: [facility] Address: [address] [place] [address] Result Comment: Use of this assay is not recommended for patients undergoing treatment with phenindione, due to the potential for falsely depressed results. Performed By: #### 2 4323-8 ####[place] [email or web address] LABCLIA [id number] [place] [address] [facility] ESTIMATED GLOMERULAR FILTRATION RATE 64 mL/min/1.73m??? Normal >=60 [facility] Comment on above: Order Comment: Elfego gilbert Type: BLOOD SPECIMENOrdering Facility: [facility] Address: [place] [address] Result Comment: Concepción mated Glomerular Filtration Rate [...] actual GFR. Performed By: #### 2 4323-8 ####[facility] Alice.comIA [id number] [place] [address] [place] Glucose [Mass/Vol] 131 mg/dL High 74-99 [facility] Comment on above: Order Comment: Elfego gilbert Type: BLOOD SPECIMENOrdering Facility: [facility] Address: [address] [place] [address] Result Comment: The [place] Diabetes Association (ADA) provides guidance for cutoff [...] Standards of Medical Care in Diabetes 2016, [place] [employer]. Diabetes Care. 2016.39(Suppl 1). Performed By: #### 2 4323-8 ####[facility] Alice.comIA [id number] [place] [address] [place] Potassium [Moles/Vol] 3.9 mmol/L Normal 3.6-5.1 [facility] Comment on above: Order Comment: Elfego gilbert Type: BLOOD SPECIMENOrdering Facility: [facility] Address: [address] [address] Performed By: #### 2 4323-8 ####[facility] LABCLIA [id number] [place] [address] [place] Protein [Mass/Vol] 5.6 g/dL Low 6.4-8.9 [facility] Comment on above: Order Comment: Speci men Type: BLOOD SPECIMENOrdering Facility: [facility] Address: [address] [place] [address] Performed By: #### 2 4323-8 ####[facility] LABCLIA [id number] [place] [address] [place] Sodium [Moles/Vol] 139 mmol/L Normal 136-144 [facility] Comment on above: Order Comment: Speci men Type: BLOOD SPECIMENOrdering Facility: [facility] Address: [address] [place] [address] Performed By: #### 2 4323-8 ####[facility] LABCLIA [id number] [place] [address] [place] Urea nitrogen [Mass/Vol] 30 mg/dL High 7-25 [facility] Comment on above: Order Comment: Speci men Type: BLOOD SPECIMENOrdering Facility: [facility] Address: [address] [place] [address] Performed By: #### 2 4323-8 ####[facility] LABCLIA [id number] [place] [address] [place] Albumin [Mass/Vol] 3.6 g/dL 3.5 - 5.7 g/dL [facility] ALP [Catalytic activity/Vol] 60 U/L 34 - 104 U/L [facility] ALT [Catalytic activity/Vol] 19 U/L 7 - 52 U/L [facility] Anion gap [Moles/Vol] 2 mmol/L Low 9 - 18 mmol/L [facility] AST [Catalytic activity/Vol] 20 U/L 13 - 39 U/L [facility] Bilirubin [Mass/Vol] 0.9 mg/dL 0.3 - 1 .0 mg/dL [facility] Calcium [Mass/Vol] 8.5 mg/dL Low 8.6 - 10. 3 mg/dL [facility] Chloride [Moles/Vol] 103 mmol/L 101 - 1 11 mmol/L [facility] CO2 [Moles/Vol] 34 mmol/L High 21 - 31 mmol/L [facility] Creatinine [Mass/Vol] 1.12 mg/dL 0.60 - 1.30 mg/dL [facility] Estimated Glomerular Filtration Rate 64 mL/min/1.73m >=60 mL/min/1.7 3m [facility] Glucose [Mass/Vol] 131 mg/dL High 74 - 99 mg/dL [facility] Potassium [Moles/Vol] 3.9 mmol/L 3.6 - 5.1 mmol/L [facility] Protein [Mass/Vol] 5.6 g/dL Low 6.4 - 8.9 g/dL [facility] Sodium [Moles/Vol] 139 mmol/L 136 - 144 mmol/L [facility] Urea nitrogen [Mass/Vol] 30 mg/dL High 7 - 25 mg/dL [facility] CNOVSPon 2022 CNOVSP Normal [facility] CBC W Auto Differential pane l (Bld)on 12-15-2022 Basophils (Bld) [#/Vol] 0.06 10*3/uL Normal <0.11 [facility] Comment on above: Order Comment: Speci men Type: BLOOD SPECIMENOrdering Facility: [facility] Address: [address] [address] Performed By: #### 5 7021-8 ####[facility] GRE[facility] LABCLIA [id number] [place] [address] [place] Basophils/100 WBC (Bld) 1.0 % Normal [facility] Comment on above: Order Comment: Speci men Type: BLOOD SPECIMENOrdering Facility: [facility] Address: [address] [address] Performed By: #### 5 7021-8 ####[place] [employer] [facility] LABCLIA [id number] [address] [place] Differential cell count method Nom (Bld) Auto Normal [facility] Comment on above: Order Comment: Speci men Type: BLOOD SPECIMENOrdering Facility: [facility] Address: [address] [place] [address] Performed By: #### 5 7021-8 ####[facility] LABCLIA [id number] [place] [address] [place] Eosinophils (Bld) [#/Vol] 0.14 10*3/uL Normal <0.46 [facility] Comment on above: Order Comment: Speci men Type: BLOOD SPECIMENOrdering Facility: [facility] Address: [address] [place] [address] Performed By: #### 5 7021-8 ####BELLOALIREZA YANG LABCLIA [id number] [address] [place] Eosinophils/100 WBC (Bld) 2.4 % Normal [facility] Comment on above: Order Comment: Speci men Type: BLOOD SPECIMENOrdering Facility: [facility] Address: [address] [place] [address] Performed By: #### 5 7021-8 ####[facility] LABCLIA [id number] [address] [place] Erythrocyte distribution width (RBC) [Ratio] 18.4 % High 11.5-15.0 [facility] Comment on above: Order Comment: Speci men Type: BLOOD SPECIMENOrdering Facility: [facility] Address: [address] [place] [address] Performed By: #### 5 7021-8 ####[facility] LABCLIA [id number] [address] [place] Hematocrit (Bld) [Volume fraction] 24.1 % Low 39.0-51.0 [facility] Comment on above: Order Comment: Speci men Type: BLOOD SPECIMENOrdering Facility: [facility] Address: [address] [place] [address] Performed By: #### 5 7021-8 ####[facility] LABCLIA [id number] [place] [address] [place] Hemoglobin (Bld) [Mass/Vol] 7.8 g/dL Low 13.0-17.0 [facility] Comment on above: Order Comment: Speci men Type: BLOOD SPECIMENOrdering Facility: [facility] Address: [address] [place] [address] Performed By: #### 5 7021-8 ####[facility] LABCLIA [id number] [place] [address] [place] Immature granulocytes (Bld) [#/Vol] 10*3/uL Normal <0.10 [facility] Comment on above: Order Comment: Speci men Type: BLOOD SPECIMENOrdering Facility: [facility] Address: [address] [place] [address] Performed By: #### 5 7021-8 ####CTALIREZA YANG LABCLIA [id number] [place] [address] [place] Immature granulocytes/100 WBC (Bld) 0.2 % Normal [facility] Comment on above: Order Comment: Speci men Type: BLOOD SPECIMENOrdering Facility: [facility] Address: [address] [place] [address] Performed By: #### 5 7021-8 ####[facility] LABCLIA [id number] [place] [address] [place] Lymphocytes (Bld) [#/Vol] 0.99 10*3/uL Low 1.00-4.00 [facility] Comment on above: Order Comment: Speci men Type: BLOOD SPECIMENOrdering Facility: [facility] Address: [address] [place] [address] Performed By: #### 5 7021-8 ####[facility] LABCLIA [id number] [place] [address] [place] Lymphocytes/100 WBC (Bld) 17.0 % Normal [facility] Comment on above: Order Comment: Speci men Type: BLOOD SPECIMENOrdering Facility: [facility] Address: [address] [place] [address] Performed By: #### 5 7021-8 ####[facility] LABCLIA [id number] [place] [address] [place] MCH (RBC) [Entitic mass] 38.6 pg High 26.0-34.0 [facility] Comment on above: Order Comment: Speci men Type: BLOOD SPECIMENOrdering Facility: [facility] Address: [address] [place] [address] Performed By: #### 5 7021-8 ####[facility] LABCLIA [id number] [address] [place] MCHC (RBC) [Mass/Vol] 32.4 g/dL Normal 30.5-36.0 [facility] Comment on above: Order Comment: Speci men Type: BLOOD SPECIMENOrdering Facility: [facility] Address: [address] [place] [address] Performed By: #### 5 7021-8 ####[facility] LABCLIA [id number] [place] [address] [place] MCV (RBC) [Entitic vol] 119.3 fL High 80.0-100.0 [facility] Comment on above: Order Comment: Speci men Type: BLOOD SPECIMENOrdering Facility: [facility] Address: [address] [place] [address] Performed By: #### 5 7021-8 ####[facility] LABCLIA [id number] [place] [address] [facility] OF [place] Monocytes (Bld) [#/Vol] 0.63 10*3/uL Normal <0.87 [facility] Comment on above: Order Comment: Speci men Type: BLOOD SPECIMENOrdering Facility: [facility] Address: [address] [place] [address] Performed By: #### 5 7021-8 ####[facility] LABCLIA [id number] [address] [address] [place] Monocytes/100 WBC (Bld) 10.8 % Normal [facility] Comment on above: Order Comment: Speci men Type: BLOOD SPECIMENOrdering Facility: [facility] Address: [address] [place] [address] Performed By: #### 5 7021-8 ####[facility] LABCLIA [id number] [place] [address] [place] Neutrophils (Bld) [#/Vol] 3.99 10*3/uL Normal 1.45-7.50 [facility] Comment on above: Order Comment: Speci men Type: BLOOD SPECIMENOrdering Facility: [facility] Address: [address] [place] [address] Performed By: #### 5 7021-8 ####[facility] LABCLIA [id number] [place] [address] [place] Neutrophils/100 WBC (Bld) 68.6 % Normal [facility] Comment on above: Order Comment: Speci men Type: BLOOD SPECIMENOrdering Facility: [facility] Address: [address] [place] [address] Performed By: #### 5 7021-8 ####[facility] LABCLIA [id number] [place] [address] [place] Nucleated RBC (Bld) [#/Vol] Normal [facility] Comment on above: Order Comment: Speci men Type: BLOOD SPECIMENOrdering Facility: [facility] Address: [address] [place] [address] Performed By: #### 5 7021-8 ####[facility] LABCLIA [id number] [place] [address] [place] Nucleated RBC/100 WBC (Bld) [Ratio] Normal [facility] Comment on above: Order Comment: Speci men Type: BLOOD SPECIMENOrdering Facility: [facility] Address: [address] [place] [address] Performed By: #### 5 7021-8 ####CTALIREZA YANG LABCLIA [id number] [place] [address] [place] Platelet mean volume (Bld) [Entitic vol] 10.9 fL Normal 9.0-12.7 [facility] Comment on above: Order Comment: Speci men Type: BLOOD SPECIMENOrdering Facility: [facility] Address: [address] [place] [address] Performed By: #### 5 7021-8 ####[facility] LABCLIA [id number] [place] [address] [place] Platelets (Bld) [#/Vol] 261 10*3/uL Normal 150-400 [facility] Comment on above: Order Comment: Speci men Type: BLOOD SPECIMENOrdering Facility: [facility] Address: [address] [place] [address] Performed By: #### 5 7021-8 ####[facility] [facility] LABCLIA [id number] [place] [address] [place] RBC (Bld) [#/Vol] 2.02 10*6/uL Low 4.20-6.00 [facility] Comment on above: Order Comment: Speci men Type: BLOOD SPECIMENOrdering Facility: [facility] Address: [address] [place] [address] Performed By: #### 5 7021-8 ####[place] [employer] LABCLIA [id number] [place] [address] [place] WBC (Bld) [#/Vol] 5.82 10*3/uL Normal 3.70-11.00 [facility] Comment on above: Order Comment: Speci men Type: BLOOD SPECIMENOrdering Facility: [facility] Address: [place] [address] Performed By: #### 5 7021-8 ####[facility] LABEVANIA [id number] [place] [address] [place] Basophils (Bld) [#/Vol] 0.06 10*3/uL <0.11 k/uL [facility] Basophils/100 WBC (Bld) 1.0 % [facility] Differential cell count method Nom (Bld) Auto [facility] Eosinophils (Bld) [#/Vol] 0.14 10*3/uL <0.46 k/uL [facility] Eosinophils/100 WBC (Bld) 2.4 % [facility] Erythrocyte distribution width (RBC) [Ratio] 18.4 % High 11.5 - 15.0 % [facility] Hematocrit (Bld) [Volume fraction] 24.1 % Low 39.0 - 51.0 % [facility] Hemoglobin (Bld) [Mass/Vol] 7.8 g/dL Low 13.0 - 17.0 g/dL [facility] Immature granulocytes (Bld) [#/Vol] <0.10 k/uL [facility] Immature granulocytes/100 WBC (Bld) 0.2 % [facility] Lymphocytes (Bld) [#/Vol] 0.99 10*3/uL Low 1.00 - 4.00 k/uL [facility] Lymphocytes/100 WBC (Bld) 17.0 % [facility] MCH (RBC) [Entitic mass] 38.6 pg High 26.0 - 34.0 pg [facility] MCHC (RBC) [Mass/Vol] 32.4 g/dL 30.5 - 36.0 g/dL [facility] MCV (RBC) [Entitic vol] 119.3 fL High 80.0 - 100.0 fL [facility] Monocytes (Bld) [#/Vol] 0.63 10*3/uL <0.87 k/uL [facility] Monocytes/100 WBC (Bld) 10.8 % [facility] Neutrophils (Bld) [#/Vol] 3.99 10*3/uL 1.45 - 7.50 k/uL [facility] Neutrophils/100 WBC (Bld) 68.6 % [facility] Nucleated RBC (Bld) [#/Vol] [facility] Nucleated RBC/100 WBC (Bld) [Ratio] [facility] Platelet mean volume (Bld) [Entitic vol] 10.9 fL 9.0 - 12.7 fL [facility] Platelets (Bld) [#/Vol] 261 10*3/uL 150 - 400 k/uL [facility] RBC (Bld) [#/Vol] 2.02 10*6/uL Low 4.20 - 6.00 m/uL [facility] WBC (Bld) [#/Vol] 5.82 10*3/uL 3.70 - 11.00 k/uL [facility] CNPNon 12-15-2022 CNPN Normal [facility] Comprehensive metabolic 2000 panelon 12-15-2022 Albumin [Mass/Vol] 3.6 g/dL Normal 3.5-5.7 [facility] Comment on above: Order Comment: Speci men Type: BLOOD SPECIMENOrdering Facility: [facility] Address: [address] [place] [address] Performed By: #### 2 4323-8 ####[facility] [employer] LABCLIA [id number] [address] ALP [Catalytic activity/Vol] 50 U/L Normal 34-104 [facility] Comment on above: Order Comment: Speci men Type: BLOOD SPECIMENOrdering Facility: [facility] Address: [address] [place] [address] Performed By: #### 2 4323-8 ####[facility] [employer] LABCLIA [id number] [address] ALT [Catalytic activity/Vol] 19 U/L Normal 7-52 [facility] Comment on above: Order Comment: Speci men Type: BLOOD SPECIMENOrdering Facility: [facility] Address: [address] [address] Performed By: #### 2 4323-8 ####[place] [employer] [facility] LABCLIA [id number] [address] [place] Anion gap [Moles/Vol] 3 mmol/L Low 9-18 [facility] Comment on above: Order Comment: Speci men Type: BLOOD SPECIMENOrdering Facility: [facility] Address: [address] [place] [address] Performed By: #### 2 4323-8 ####BELLOALIREZA SAUCEDA [employer] LABCLIA [id number] [place] [address] [place] AST [Catalytic activity/Vol] 22 U/L Normal 13-39 [facility] Comment on above: Order Comment: Speci men Type: BLOOD SPECIMENOrdering Facility: [facility] Address: [address] [place] [address] Performed By: #### 2 4323-8 ####BELLOALIREZA SAUCEDA [employer] LABCLIA [id number] [place] [address] [place] Bilirubin [Mass/Vol] 1.3 mg/dL High 0.3-1.0 [facility] Comment on above: Order Comment: Speci men Type: BLOOD SPECIMENOrdering Facility: [facility] Address: [address] [place] [address] Result Comment: Use of this assay is not recommended for patients undergoing treatment with eltrombopag due to the potential for falsely elevated results. Performed By: #### 2 4323-8 ####CTALIREZA SAUCEDA [employer] LABCLIA [id number] [place] [address] [place] Calcium [Mass/Vol] 8.6 mg/dL Normal 8.6-10.3 [facility] Comment on above: Order Comment: Speci men Type: BLOOD SPECIMENOrdering Facility: [facility] Address: [address] [place] [address] Performed By: #### 2 4323-8 ####CTALIRE[facility] [employer] [facility] LABCLIA [id number] [place] [address] [place] Chloride [Moles/Vol] 102 mmol/L Normal 101-111 [facility] Comment on above: Order Comment: Speci men Type: BLOOD SPECIMENOrdering Facility: [facility] Address: [address] [address] Performed By: #### 2 4323-8 ####[facility] LABCLIA [id number] [place] [address] [facility] CO2 [Moles/Vol] 33 mmol/L High 21-31 [facility] Comment on above: Order Comment: Speci men Type: BLOOD SPECIMENOrdering Facility: [facility] Address: [address] [place] [address] Performed By: #### 2 4323-8 ####[facility] LABCLIA [id number] [address] Creatinine [Mass/Vol] 1.04 mg/dL Normal 0.70-1.30 [facility] Comment on above: Order Comment: Speci men Type: BLOOD SPECIMENOrdering Facility: [facility] Address: [address] [place] [address] Result Comment: Use of this assay is not recommended for patients undergoing treatment with phenindione, due to the potential for falsely depressed results. Performed By: #### 2 4323-8 ####[facility] LABCLIA [id number] [address] ESTIMATED GLOMERULAR FILTRATION RATE 70 mL/min/1.73m??? Normal >=60 [facility] Comment on above: Order Comment: Speci men Type: BLOOD SPECIMENOrdering Facility: [facility] Address: [address] [place] [address] Result Comment: Concepción mated Glomerular Filtration Rate [...] actual GFR. Performed By: #### 2 4323-8 ####[facility] LABCLIA [id number] [place] [address] [place] Glucose [Mass/Vol] 159 mg/dL High 74-99 [facility] Comment on above: Order Comment: Speci men Type: BLOOD SPECIMENOrdering Facility: [facility] Address: [address] [place] [address] Result Comment: The [place] [employer] Association (ADA) provides guidance for cutoff [...] Standards of Medical Care in Diabetes 2016, [place] [employer]. Diabetes Care. 2016.39(Suppl 1). Performed By: #### 2 4323-8 ####[facility] LABCLIA [id number] [place] [address] [place] Potassium [Moles/Vol] 4.1 mmol/L Normal 3.6-5.1 [facility] Comment on above: Order Comment: Speci men Type: BLOOD SPECIMENOrdering Facility: [facility] Address: [address] [place] [address] Performed By: #### 2 4323-8 ####[facility] LABCLIA [id number] [place] [address] [place] Protein [Mass/Vol] 5.6 g/dL Low 6.4-8.9 [facility] Comment on above: Order Comment: Speci men Type: BLOOD SPECIMENOrdering Facility: [facility] Address: [address] [place] [address] Performed By: #### 2 4323-8 ####[facility] LABCLIA [id number] [place] [address] [place] [facility] Sodium [Moles/Vol] 138 mmol/L Normal 136-144 [facility] Comment on above: Order Comment: Speci men Type: BLOOD SPECIMENOrdering Facility: [facility] Address: [address] [address] Performed By: #### 2 4323-8 ####CTALIREZA SAUCEDA MABANK LABCLIA [id number] [place] [address] [place] Urea nitrogen [Mass/Vol] 30 mg/dL High 7-25 [facility] Comment on above: Order Comment: Speci men Type: BLOOD SPECIMENOrdering Facility: [facility] Address: [address] [place] [address] Performed By: #### 2 4323-8 ####[facility] LABCLIA [id number] [place] [address] [place] Albumin [Mass/Vol] 3.6 g/dL 3.5 - 5.7 g/dL [facility] ALP [Catalytic activity/Vol] 50 U/L 34 - 104 U/L [facility] ALT [Catalytic activity/Vol] 19 U/L 7 - 52 U/L [facility] Anion gap [Moles/Vol] 3 mmol/L Low 9 - 18 mmol/L [facility] AST [Catalytic activity/Vol] 22 U/L 13 - 39 U/L [facility] Bilirubin [Mass/Vol] 1.3 mg/dL High 0.3 - 1 .0 mg/dL [facility] Calcium [Mass/Vol] 8.6 mg/dL 8.6 - 10. 3 mg/dL [facility] Chloride [Moles/Vol] 102 mmol/L 101 - 1 11 mmol/L [facility] CO2 [Moles/Vol] 33 mmol/L High 21 - 31 mmol/L [facility] Creatinine [Mass/Vol] 1.04 mg/dL 0.70 - 1.30 mg/dL [facility] Estimated Glomerular Filtration Rate 70 mL/min/1.73m >=60 mL/min/1.7 3m [facility] Glucose [Mass/Vol] 159 mg/dL High 74 - 99 mg/dL [facility] Potassium [Moles/Vol] 4.1 mmol/L 3.6 - 5.1 mmol/L [facility] Protein [Mass/Vol] 5.6 g/dL Low 6.4 - 8.9 g/dL [facility] Sodium [Moles/Vol] 138 mmol/L 136 - 144 mmol/L [facility] Urea nitrogen [Mass/Vol] 30 mg/dL High 7 - 25 mg/dL [facility] OPERATIVE NOon 12-05-2022 OPERATIVE NO Normal [facility] CBC W Auto Differential pane l (Bld)on 12-04-2022 Basophils (Bld) [#/Vol] 0.04 10*3/uL Normal <0.11 [facility] Comment on above: Order Comment: Speci men Type: BLOOD SPECIMENOrdering Facility: [facility] Address: [address] [place] [address] Performed By: #### 5 7021-8 ####[facility] LABORATORYCLIA [id number] [place] [address] [place] Basophils/100 WBC (Bld) 0.5 % Normal [facility] Comment on above: Order Comment: Speci men Type: BLOOD SPECIMENOrdering Facility: [facility] Address: [address] [place] [address] Performed By: #### 5 7021-8 ####[facility] LABORATORYCLIA [id number] [address] [place] Differential cell count method Nom (Bld) Auto Normal [facility] Comment on above: Order Comment: Speci men Type: BLOOD SPECIMENOrdering Facility: [facility] Address: [address] [address] Performed By: #### 5 7021-8 ####[facility] LABORATORYCLIA [id number] [place] [address] [place] Eosinophils (Bld) [#/Vol] 0.16 10*3/uL Normal <0.46 [facility] Comment on above: Order Comment: Speci men Type: BLOOD SPECIMENOrdering Facility: [facility] Address: [address] [address] Performed By: #### 5 7021-8 ####[facility] LABORATORYCLIA [id number] [address] Eosinophils/100 WBC (Bld) 2.1 % Normal [facility] Comment on above: Order Comment: Speci men Type: BLOOD SPECIMENOrdering Facility: [facility] Address: [address] [place] [address] Performed By: #### 5 7021-8 ####[facility] LABORATORYCLIA [id number] [address] Erythrocyte distribution width (RBC) [Ratio] 19.3 % High 11.5-15.0 [facility] Comment on above: Order Comment: Speci men Type: BLOOD SPECIMENOrdering Facility: [facility] Address: [address] [place] [address] Performed By: #### 5 7021-8 ####[facility] LABORATORYCLIA [id number] [address] Hematocrit (Bld) [Volume fraction] 26.1 % Low 39.0-51.0 [facility] Comment on above: Order Comment: Speci men Type: BLOOD SPECIMENOrdering Facility: [facility] Address: [address] [place] [address] Performed By: #### 5 7021-8 ####[facility] LABORATORYCLIA [id number] [address] [place] Hemoglobin (Bld) [Mass/Vol] 8.5 g/dL Low 13.0-17.0 [facility] Comment on above: Order Comment: Speci men Type: BLOOD SPECIMENOrdering Facility: [facility] Address: [address] [place] [address] Performed By: #### 5 7021-8 ####[facility] LABORATORYCLIA [id number] [address] Immature granulocytes (Bld) [#/Vol] 0.03 10*3/uL Normal <0.10 [facility] Comment on above: Order Comment: Speci men Type: BLOOD SPECIMENOrdering Facility: [facility] Address: [address] [place] [address] Performed By: #### 5 7021-8 ####[facility] LABORATORYCLIA [id number] [address] Immature granulocytes/100 WBC (Bld) 0.4 % Normal [facility] Comment on above: Order Comment: Speci men Type: BLOOD SPECIMENOrdering Facility: [facility] Address: [address] [place] [address] Performed By: #### 5 7021-8 ####[facility] LABORATORYCLIA [id number] [address] OF [facility] Lymphocytes (Bld) [#/Vol] 1.35 10*3/uL Normal 1.00-4.00 [facility] Comment on above: Order Comment: Speci men Type: BLOOD SPECIMENOrdering Facility: [facility] Address: [address] [place] [address] Performed By: #### 5 7021-8 ####[facility] LABORATORYCLIA [id number] [address] Lymphocytes/100 WBC (Bld) 18.0 % Normal [facility] Comment on above: Order Comment: Speci men Type: BLOOD SPECIMENOrdering Facility: [facility] Address: [address] [place] [address] Performed By: #### 5 7021-8 ####[facility] LABORATORYCLIA [id number] [address] STATES [facility] MCH (RBC) [Entitic mass] 38.3 pg High 26.0-34.0 [facility] Comment on above: Order Comment: Speci men Type: BLOOD SPECIMENOrdering Facility: [facility] Address: [address] [place] [address] Performed By: #### 5 7021-8 ####[facility] LABORATORYCLIA [id number] [address] MCHC (RBC) [Mass/Vol] 32.6 g/dL Normal 30.5-36.0 [facility] Comment on above: Order Comment: Speci men Type: BLOOD SPECIMENOrdering Facility: [facility] Address: [address] [place] [address] Performed By: #### 5 7021-8 ####[facility] LABORATORYCLIA [id number] [place] [address] [place] MCV (RBC) [Entitic vol] 117.6 fL High 80.0-100.0 [facility] Comment on above: Order Comment: Speci men Type: BLOOD SPECIMENOrdering Facility: [facility] Address: [address] [place] [address] Performed By: #### 5 7021-8 ####[facility] LABORATORYCLIA [id number] [address] [place] Monocytes (Bld) [#/Vol] 0.96 10*3/uL High <0.87 [facility] Comment on above: Order Comment: Speci men Type: BLOOD SPECIMENOrdering Facility: [facility] Address: [address] [place] [address] Performed By: #### 5 7021-8 ####[facility] LABORATORYCLIA [id number] [address] [place] Monocytes/100 WBC (Bld) 12.8 % Normal [facility] Comment on above: Order Comment: Speci men Type: BLOOD SPECIMENOrdering Facility: [facility] Address: [address] [place] [address] Performed By: #### 5 7021-8 ####[facility] LABORATORYCLIA [id number] [place] [address] [place] Neutrophils (Bld) [#/Vol] 4.98 10*3/uL Normal 1.45-7.50 [facility] Comment on above: Order Comment: Speci men Type: BLOOD SPECIMENOrdering Facility: [facility] Address: [address] [place] [address] Performed By: #### 5 7021-8 ####[facility]ORATORYCLIA [id number] [address] Neutrophils/100 WBC (Bld) 66.2 % Normal [facility] Comment on above: Order Comment: Speci men Type: BLOOD SPECIMENOrdering Facility: [facility] Address: [address] [place] [address] Performed By: #### 5 7021-8 ####[facility] LABORATORYCLIA [id number] [address] [place] Nucleated RBC (Bld) [#/Vol] 0.08 10*3/uL High <0.01 [facility] Comment on above: Order Comment: Speci men Type: BLOOD SPECIMENOrdering Facility: [facility] Address: [address] [place] [address] Performed By: #### 5 7021-8 ####[facility] LABORATORYCLIA [id number] [address] [place] Nucleated RBC/100 WBC (Bld) [Ratio] 1.1 /100 WBC Normal [facility] Comment on above: Order Comment: Speci men Type: BLOOD SPECIMENOrdering Facility: [facility] Address: [address] [place] [address] Performed By: #### 5 7021-8 ####[facility] LABORATORYCLIA [id number] [address] [place] Platelet mean volume (Bld) [Entitic vol] 11.0 fL Normal 9.0-12.7 [facility] Comment on above: Order Comment: Speci men Type: BLOOD SPECIMENOrdering Facility: [facility] Address: [address] [place] [address] Performed By: #### 5 7021-8 ####[facility] LABORATORYCLIA [id number] [address] [place] Platelets (Bld) [#/Vol] 292 10*3/uL Normal 150-400 [facility] Comment on above: Order Comment: Speci men Type: BLOOD SPECIMENOrdering Facility: [facility] Address: [address] [address] Performed By: #### 5 7021-8 ####[facility] LABORATORYCLIA [id number] [address] RBC (Bld) [#/Vol] 2.22 10*6/uL Low 4.20-6.00 [facility] Comment on above: Order Comment: Speci men Type: BLOOD SPECIMENOrdering Facility: [facility] Address: [address] [place] [address] Performed By: #### 5 7021-8 ####[facility] LABORATORYCLIA [id number] [address] WBC (Bld) [#/Vol] 7.52 10*3/uL Normal 3.70-11.00 [facility] Comment on above: Order Comment: Speci men Type: BLOOD SPECIMENOrdering Facility: [facility] Address: [address] [place] [address] Performed By: #### 5 7021-8 ####[facility] LABORATORYCLIA [id number] [address] Basophils (Bld) [#/Vol] 0.04 10*3/uL <0.11 k/uL [facility] Basophils/100 WBC (Bld) 0.5 % [facility] Differential cell count method Nom (Bld) Auto [facility] Eosinophils (Bld) [#/Vol] 0.16 10*3/uL <0.46 k/uL [facility] Eosinophils/100 WBC (Bld) 2.1 % [facility] Erythrocyte distribution width (RBC) [Ratio] 19.3 % High 11.5 - 15.0 % [facility] Hematocrit (Bld) [Volume fraction] 26.1 % Low 39.0 - 51.0 % [facility] Hemoglobin (Bld) [Mass/Vol] 8.5 g/dL Low 13.0 - 17.0 g/dL [facility] Immature granulocytes (Bld) [#/Vol] 0.03 10*3/uL <0.10 k/uL [facility] Immature granulocytes/100 WBC (Bld) 0.4 % [facility] Lymphocytes (Bld) [#/Vol] 1.35 10*3/uL 1.00 - 4.00 k/uL [facility] Lymphocytes/100 WBC (Bld) 18.0 % [facility] MCH (RBC) [Entitic mass] 38.3 pg High 26.0 - 34.0 pg [facility] MCHC (RBC) [Mass/Vol] 32.6 g/dL 30.5 - 36.0 g/dL [facility] MCV (RBC) [Entitic vol] 117.6 fL High 80.0 - 100.0 fL [facility] Monocytes (Bld) [#/Vol] 0.96 10*3/uL High <0.87 k/uL [facility] Monocytes/100 WBC (Bld) 12.8 % [facility] Neutrophils (Bld) [#/Vol] 4.98 10*3/uL 1.45 - 7.50 k/uL [facility] Neutrophils/100 WBC (Bld) 66.2 % [facility] Nucleated RBC (Bld) [#/Vol] 0.08 10*3/uL High <0.01 k/uL [facility] Nucleated RBC/100 WBC (Bld) [Ratio] 1.1 /100 WBC [facility] Platelet mean volume (Bld) [Entitic vol] 11.0 fL 9.0 - 12.7 fL [facility] Platelets (Bld) [#/Vol] 292 10*3/uL 150 - 400 k/uL [facility] RBC (Bld) [#/Vol] 2.22 10*6/uL Low 4.20 - 6.00 m/uL [facility] WBC (Bld) [#/Vol] 7.52 10*3/uL 3.70 - 11.00 k/uL [facility] CNOVSPon 12-04-2022 CNOVSP Normal [facility] CNSWon 12-04-2022 CNSW Normal [facility] CBC W Auto Differential pane l (Bld)on 11-26-2022 Basophils (Bld) [#/Vol] 0.06 10*3/uL Normal <0.11 [facility] Comment on above: Order Comment: Speci men Type: BLOOD SPECIMENOrdering Facility: [facility] Address: [address] [place] [address] Performed By: #### 5 7021-8 ####[facility] LABORATORYCLIA [id number] [address] STATES [facility] Basophils/100 WBC (Bld) 1.0 % Normal [facility] Comment on above: Order Comment: Speci men Type: BLOOD SPECIMENOrdering Facility: [facility] Address: [address] [place] [address] Performed By: #### 5 7021-8 ####[facility] LABORATORYCLIA [id number] [address] [place] Differential cell count method Nom (Bld) Auto Normal [facility] Comment on above: Order Comment: Speci men Type: BLOOD SPECIMENOrdering Facility: [facility] Address: [address] [place] [address] Performed By: #### 5 7021-8 ####[facility] LABORATORYCLIA [id number] [address] [place] Eosinophils (Bld) [#/Vol] 0.21 10*3/uL Normal <0.46 [facility] Comment on above: Order Comment: Speci men Type: BLOOD SPECIMENOrdering Facility: [facility] Address: [address] [place] [address] Performed By: #### 5 7021-8 ####[facility] LABORATORYCLIA [id number] [address] [place] Eosinophils/100 WBC (Bld) 3.4 % Normal [facility] Comment on above: Order Comment: Speci men Type: BLOOD SPECIMENOrdering Facility: [facility] Address: [address] [place] [address] Performed By: #### 5 7021-8 ####[facility]ORATORYCLIA [id number] [address] [place] Erythrocyte distribution width (RBC) [Ratio] 19.2 % High 11.5-15.0 [facility] Comment on above: Order Comment: Speci men Type: BLOOD SPECIMENOrdering Facility: [facility] Address: [address] [address] Performed By: #### 5 7021-8 ####[facility] LABORATORYCLIA [id number] [address] Hematocrit (Bld) [Volume fraction] 26.1 % Low 39.0-51.0 [facility] Comment on above: Order Comment: Speci men Type: BLOOD SPECIMENOrdering Facility: [facility] Address: [address] [place] [address] Performed By: #### 5 7021-8 ####[facility] LABORATORYCLIA [id number] [address] [place] Hemoglobin (Bld) [Mass/Vol] 8.3 g/dL Low 13.0-17.0 [facility] Comment on above: Order Comment: Speci men Type: BLOOD SPECIMENOrdering Facility: [facility] Address: [address] [place] [address] Performed By: #### 5 7021-8 ####[facility] LABORATORYCLIA [id number] [address] [place] Immature granulocytes (Bld) [#/Vol] 10*3/uL Normal <0.10 [facility] Comment on above: Order Comment: Speci men Type: BLOOD SPECIMENOrdering Facility: [facility] Address: [address] [place] [address] Performed By: #### 5 7021-8 ####[facility] LABORATORYCLIA [id number] [address] Immature granulocytes/100 WBC (Bld) 0.3 % Normal [facility] Comment on above: Order Comment: Speci men Type: BLOOD SPECIMENOrdering Facility: [facility] Address: [address] [place] [address] Performed By: #### 5 7021-8 ####[facility]ORATORYCLIA [id number] [address] [place] Lymphocytes (Bld) [#/Vol] 1.47 10*3/uL Normal 1.00-4.00 [facility] Comment on above: Order Comment: Speci men Type: BLOOD SPECIMENOrdering Facility: [facility] Address: [address] [place] [address] Performed By: #### 5 7021-8 ####[facility] LABORATORYCLIA [id number] [address] Lymphocytes/100 WBC (Bld) 23.9 % Normal [facility] Comment on above: Order Comment: Speci men Type: BLOOD SPECIMENOrdering Facility: [facility] Address: [address] [place] [address] Performed By: #### 5 7021-8 ####[facility] LABORATORYCLIA [id number] [address] [place] MCH (RBC) [Entitic mass] 37.4 pg High 26.0-34.0 [facility] Comment on above: Order Comment: Speci men Type: BLOOD SPECIMENOrdering Facility: [facility] Address: [address] [place] [address] Performed By: #### 5 7021-8 ####[facility] LABORATORYCLIA [id number] [address] STATES OF [facility] MCHC (RBC) [Mass/Vol] 31.8 g/dL Normal 30.5-36.0 [facility] Comment on above: Order Comment: Speci men Type: BLOOD SPECIMENOrdering Facility: [facility] Address: [address] [place] [address] Performed By: #### 5 7021-8 ####[facility] LABORATORYCLIA [id number] [address] [place] MCV (RBC) [Entitic vol] 117.6 fL High 80.0-100.0 [facility] Comment on above: Order Comment: Speci men Type: BLOOD SPECIMENOrdering Facility: [facility] Address: [address] [place] [address] Performed By: #### 5 7021-8 ####[facility] LABORATORYCLIA [id number] [address] [place] Monocytes (Bld) [#/Vol] 0.80 10*3/uL Normal <0.87 [facility] Comment on above: Order Comment: Speci men Type: BLOOD SPECIMENOrdering Facility: [facility] Address: [address] [place] [address] Performed By: #### 5 7021-8 ####[facility] LABORATORYCLIA [id number] [address] [place] Monocytes/100 WBC (Bld) 13.0 % Normal [facility] Comment on above: Order Comment: Speci men Type: BLOOD SPECIMENOrdering Facility: [facility] Address: [address] [place] [address] Performed By: #### 5 7021-8 ####[facility] LABORATORYCLIA [id number] [address] [place] Neutrophils (Bld) [#/Vol] 3.58 10*3/uL Normal 1.45-7.50 [facility] Comment on above: Order Comment: Speci men Type: BLOOD SPECIMENOrdering Facility: [facility] Address: [address] [place] [address] Performed By: #### 5 7021-8 ####[facility]ORATORYCLIA [id number] [address] [place] Neutrophils/100 WBC (Bld) 58.4 % Normal [facility] Comment on above: Order Comment: Speci men Type: BLOOD SPECIMENOrdering Facility: [facility] Address: [address] [place] [address] Performed By: #### 5 7021-8 ####[facility]ORATORYCLIA [id number] [place] [address] [place] Nucleated RBC (Bld) [#/Vol] 0.03 10*3/uL High <0.01 [facility] Comment on above: Order Comment: Speci men Type: BLOOD SPECIMENOrdering Facility: [facility] Address: [address] [address] Performed By: #### 5 7021-8 ####[facility] LABORATORYCLIA [id number] [address] [place] Nucleated RBC/100 WBC (Bld) [Ratio] 0.5 /100 WBC Normal [facility] Comment on above: Order Comment: Speci men Type: BLOOD SPECIMENOrdering Facility: [facility] Address: [address] [address] Performed By: #### 5 7021-8 ####[facility] LABORATORYCLIA [id number] [address] [place] Platelet mean volume (Bld) [Entitic vol] 11.5 fL Normal 9.0-12.7 [facility] Comment on above: Order Comment: Speci men Type: BLOOD SPECIMENOrdering Facility: [facility] Address: [address] [place] [address] Performed By: #### 5 7021-8 ####[facility] LABORATORYCLIA [id number] [address] [place] Platelets (Bld) [#/Vol] 292 10*3/uL Normal 150-400 [facility] Comment on above: Order Comment: Speci men Type: BLOOD SPECIMENOrdering Facility: [facility] Address: [address] [place] [address] Performed By: #### 5 7021-8 ####[facility] LABORATORYCLIA [id number] [address] [place] RBC (Bld) [#/Vol] 2.22 10*6/uL Low 4.20-6.00 [facility] Comment on above: Order Comment: Speci men Type: BLOOD SPECIMENOrdering Facility: [facility] Address: [address] [place] [address] Performed By: #### 5 7021-8 ####[facility] LABORATORYCLIA [id number] [address] [place] WBC (Bld) [#/Vol] 6.14 10*3/uL Normal 3.70-11.00 [facility] Comment on above: Order Comment: Speci men Type: BLOOD SPECIMENOrdering Facility: [facility] Address: [address] [place] [address] Performed By: #### 5 7021-8 ####[facility] LABORATORYCLIA [id number] [address] [place] CNOVSPon 11-26-2022 CNOVSP Normal [facility] CNPNon 11-26-2022 CNPN Normal [facility] EPO SerPl-aCncon 11-26-2022 Erythropoietin (EPO) Qn 74.5 mIU/mL High 2.6-18.5 [facility] Comment on above: Order Comment: Speci men Type: BLOOD SPECIMENOrdering Facility: [facility] Address: [address] [place] [address] Performed By: #### 1 5061-5 ####[facility] LABCLIA [id number] [facility] [id number] [place] CNPNon 11-06-2022 CNPN Normal [facility] CBC W Auto Differential pane l (Bld)on 11-05-2022 Basophils (Bld) [#/Vol] 0.07 10*3/uL Normal <0.11 [facility] Comment on above: Order Comment: Speci men Type: BLOOD SPECIMENOrdering Facility: [facility] Address: [address] [place] [address] Performed By: #### 5 7021-8 ####[facility] LABORATORYCLIA [id number] [address] [place] Basophils/100 WBC (Bld) 1.0 % Normal [facility] Comment on above: Order Comment: Speci men Type: BLOOD SPECIMENOrdering Facility: [facility] Address: [address] [place] [address] Performed By: #### 5 7021-8 ####[facility] LABORATORYCLIA [id number] [address] [place] Differential cell count method Nom (Bld) Auto Normal [facility] Comment on above: Order Comment: Speci men Type: BLOOD SPECIMENOrdering Facility: [facility] Address: [address] [place] [address] Performed By: #### 5 7021-8 ####[facility] LABORATORYCLIA [id number] [address] Eosinophils (Bld) [#/Vol] 0.19 10*3/uL Normal <0.46 [facility] Comment on above: Order Comment: Speci men Type: BLOOD SPECIMENOrdering Facility: [facility] Address: [address] [place] [address] Performed By: #### 5 7021-8 ####[facility] LABORATORYCLIA [id number] [address] Eosinophils/100 WBC (Bld) 2.7 % Normal [facility] Comment on above: Order Comment: Speci men Type: BLOOD SPECIMENOrdering Facility: [facility] Address: [address] [place] [address] Performed By: #### 5 7021-8 ####[facility] LABORATORYCLIA [id number] [address] Erythrocyte distribution width (RBC) [Ratio] 18.8 % High 11.5-15.0 [facility] Comment on above: Order Comment: Speci men Type: BLOOD SPECIMENOrdering Facility: [facility] Address: [address] [place] [address] Performed By: #### 5 7021-8 ####[facility] LABORATORYCLIA [id number] [address] Hematocrit (Bld) [Volume fraction] 24.2 % Low 39.0-51.0 [facility] Comment on above: Order Comment: Speci men Type: BLOOD SPECIMENOrdering Facility: [facility] Address: [address] [place] [address] Performed By: #### 5 7021-8 ####[facility] LABORATORYCLIA [id number] [address] [place] Hemoglobin (Bld) [Mass/Vol] 7.9 g/dL Low 13.0-17.0 [facility] Comment on above: Order Comment: Speci men Type: BLOOD SPECIMENOrdering Facility: [facility] Address: [address] [place] [address] Performed By: #### 5 7021-8 ####[facility] LABORATORYCLIA [id number] [address] [place] Immature granulocytes (Bld) [#/Vol] 0.03 10*3/uL Normal <0.10 [facility] Comment on above: Order Comment: Speci men Type: BLOOD SPECIMENOrdering Facility: [facility] Address: [address] [place] [address] Performed By: #### 5 7021-8 ####[facility] LABORATORYCLIA [id number] [address] [place] Immature granulocytes/100 WBC (Bld) 0.4 % Normal [facility] Comment on above: Order Comment: Speci men Type: BLOOD SPECIMENOrdering Facility: [facility] Address: [address] [place] [address] Performed By: #### 5 7021-8 ####[facility] LABORATORYCLIA [id number] [address] [place] Lymphocytes (Bld) [#/Vol] 1.08 10*3/uL Normal 1.00-4.00 [facility] Comment on above: Order Comment: Speci men Type: BLOOD SPECIMENOrdering Facility: [facility] Address: [address] [place] [address] Performed By: #### 5 7021-8 ####[facility] LABORATORYCLIA [id number] [address] [place] Lymphocytes/100 WBC (Bld) 15.6 % Normal [facility] Comment on above: Order Comment: Speci men Type: BLOOD SPECIMENOrdering Facility: [facility] Address: [address] [address] Performed By: #### 5 7021-8 ####[facility] LABORATORYCLIA [id number] [address] MCH (RBC) [Entitic mass] 38.0 pg High 26.0-34.0 [facility] Comment on above: Order Comment: Speci men Type: BLOOD SPECIMENOrdering Facility: [facility] Address: [address] [address] Performed By: #### 5 7021-8 ####[facility] LABORATORYCLIA [id number] [address] STATES OF [facility] MCHC (RBC) [Mass/Vol] 32.6 g/dL Normal 30.5-36.0 [facility] Comment on above: Order Comment: Speci men Type: BLOOD SPECIMENOrdering Facility: [facility] Address: [address] [place] [address] Performed By: #### 5 7021-8 ####[facility] LABORATORYCLIA [id number] [address] STATES OF [facility] MCV (RBC) [Entitic vol] 116.3 fL High 80.0-100.0 [facility] Comment on above: Order Comment: Speci men Type: BLOOD SPECIMENOrdering Facility: [facility] Address: [address] [place] [address] Performed By: #### 5 7021-8 ####[facility] LABORATORYCLIA [id number] [address] OF [facility] Monocytes (Bld) [#/Vol] 1.06 10*3/uL High <0.87 [facility] Comment on above: Order Comment: Speci men Type: BLOOD SPECIMENOrdering Facility: [facility] Address: [address] [place] [address] Performed By: #### 5 7021-8 ####[facility] LABORATORYCLIA [id number] [address] Monocytes/100 WBC (Bld) 15.3 % Normal [facility] Comment on above: Order Comment: Speci men Type: BLOOD SPECIMENOrdering Facility: [facility] Address: [address] [place] [address] Performed By: #### 5 7021-8 ####[facility] LABORATORYCLIA [id number] [place] [address] [place] Neutrophils (Bld) [#/Vol] 4.50 10*3/uL Normal 1.45-7.50 [facility] Comment on above: Order Comment: Speci men Type: BLOOD SPECIMENOrdering Facility: [facility] Address: [address] [place] [address] Performed By: #### 5 7021-8 ####[facility] LABORATORYCLIA [id number] [address] [place] Neutrophils/100 WBC (Bld) 65.0 % Normal [facility] Comment on above: Order Comment: Speci men Type: BLOOD SPECIMENOrdering Facility: [facility] Address: [address] [place] [address] Performed By: #### 5 7021-8 ####[facility] LABORATORYCLIA [id number] [place] [address] [place] Nucleated RBC (Bld) [#/Vol] 0.03 10*3/uL High <0.01 [facility] Comment on above: Order Comment: Speci men Type: BLOOD SPECIMENOrdering Facility: [facility] Address: [address] [place] [address] Performed By: #### 5 7021-8 ####[facility]ORATORYCLIA [id number] [address] [place] Nucleated RBC/100 WBC (Bld) [Ratio] 0.4 /100 WBC Normal [facility] Comment on above: Order Comment: Speci men Type: BLOOD SPECIMENOrdering Facility: [facility] Address: [address] [place] [address] Performed By: #### 5 7021-8 ####[facility]ORATORYCLIA [id number] [address] Platelet mean volume (Bld) [Entitic vol] 11.3 fL Normal 9.0-12.7 [facility] Comment on above: Order Comment: Speci men Type: BLOOD SPECIMENOrdering Facility: [facility] Address: [address] [place] [address] Performed By: #### 5 7021-8 ####[facility] LABORATORYCLIA [id number] [place] [address] [place] Platelets (Bld) [#/Vol] 289 10*3/uL Normal 150-400 [facility] Comment on above: Order Comment: Speci men Type: BLOOD SPECIMENOrdering Facility: [facility] Address: [address] [place] [address] Performed By: #### 5 7021-8 ####[facility] LABORATORYCLIA [id number] [place] [address] [place] RBC (Bld) [#/Vol] 2.08 10*6/uL Low 4.20-6.00 [facility] Comment on above: Order Comment: Speci men Type: BLOOD SPECIMENOrdering Facility: [facility] Address: [address] [place] [address] Performed By: #### 5 7021-8 ####[facility] LABORATORYCLIA [id number] [address] [place] WBC (Bld) [#/Vol] 6.93 10*3/uL Normal 3.70-11.00 [facility] Comment on above: Order Comment: Speci men Type: BLOOD SPECIMENOrdering Facility: [facility] Address: [address] [place] [address] Performed By: #### 5 7021-8 ####[facility] LABORATORYCLIA [id number] [address] [place] CNOVSPon 11-05-2022 CNOVSP Normal [facility] COPPER BLOODon 11-05-2022 Copper [Mass/Vol] 100 ug/dL Normal 70-140 [facility] Comment on above: Order Comment: Elfego gilbert Type: BLOOD SPECIMENOrdering Facility: [facility] Address: [address] [place], [place] [id number] Result Comment: This test was developed and its performance characteristics determined by [facility]'s [facility] Pathology and Laboratory Medicine [place] ([facility]). It has not been cleared or approved by the FDA. [facility] is regulated under CLIA as qualified to perform high-complexity testing. This test is used for clinical purposes. It should not be regarded as investigational or for research. Performed By: #### C OPPER ####[facility] LABCLIA [id number] [address] [place] EPO SerPl-aCncon 11-05-2022 Erythropoietin (EPO) Qn 79.6 mIU/mL High 2.6-18.5 [facility] Comment on above: Order Comment: Elfego gilbert Type: BLOOD SPECIMENOrdering Facility: [facility] Address: [address] [place] [address] Performed By: #### 1 5061-5 ####[facility] HOSPITALIA [id number] [address] [place] BONE MARROW ANALYSISon 10-24 ADDENDUM 1: Normal [facility] Comment on above: Order Comment: Elfego gilbert Type: BONE MARROW SPECIMENOrdering Facility: [facility] Address: [address] [place] [address] Result Comment: Cyto genetics (see separate report) revealed a normal male karyotype: 46,XY[20]. The myeloid NGS panel (see separate report) identified the following variants (with VAFs): SF3B1 p.H662Q (41.7%) and TET2 p.E8276Hpv*6 (46%). The overall findings are consistent with [...] 3:48 PM Performed By: #### B MRT ####[facility] LABORATORYCLIA [id number] [address] ADDENDUM 2: Normal [facility] Comment on above: Order Comment: Elfego gilbert Type: BONE MARROW SPECIMENOrdering Facility: [facility] Address: [address] [place] [address] Result Comment: The gross description for part A is as follows:A. BONE MARROW ASPIRATE LEFT POSTERIOR ILIAC CRESTReceived are air-dried bone marrow aspirate smears. Submitted for light microscopy.Addendum electronically signed by Nnamdi Hernandez MD on 11/12/2022 at 4:01 PM Performed By: #### B MRT ####[facility] LABORATORYCLIA [id number] [address] CASE REPORT Normal [facility] Comment on above: Order Comment: Speci vladimir Type: BONE MARROW SPECIMENOrdering Facility: [facility] Address: [address] [place] [address] Result Comment: Bone Marrow Pathology Report Case: [id number] Provider: Randa Rowell DO Collected: 10/24/2022 12:31 PMOrdering Location: [facility] Received: 10/24/2022 02:31 PM INTERVENTIONAL RADIOLOGYPathologist: MATTHIAS Ordonezpecimens: A) - BONE MARROW ASPIRATE LEFT POSTERIOR ILIAC CREST B) - BONE MARROW BIOPSY LEFT POSTERIOR ILIAC CREST C) - BONE MARROW CLOT LEFT POSTERIOR ILIAC CREST Performed By: #### B MRT ####[facility] LABORATORYCLIA [id number] [address] DIAGNOSIS COMMENT Normal [facility] Comment on above: Order Comment: Speci men Type: BONE MARROW SPECIMENOrdering Facility: [facility] Address: [address] [place] [address] Performed By: #### B MRT ####[facility] LABORATORYCLIA [id number] [address] FINAL DIAGNOSIS Normal [facility] Comment on above: Order Comment: Speci men Type: BONE MARROW SPECIMENOrdering Facility: [facility] Address: [address] [place] [address] Result Comment: A-C. 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 Performed By: #### B MRT ####[facility] LABORATORYCLIA [id number] [address] FINAL PERFORMING LAB Normal [facility] Comment on above: Order Comment: Speci men Type: BONE MARROW SPECIMENOrdering Facility: [facility] Address: [address] [place] [address] Result Comment: Diag nostic interpretation performed at [facility], [address] [place] [address] CLIA# [id number] Director: Ned Meza M.D. Performed By: #### B MRT ####[facility] LABORATORYCLIA [id number] [address] GROSS DESCRIPTION Normal [facility] Comment on above: Order Comment: Speci [facility] Type: BONE MARROW SPECIMENOrdering Facility: [facility] Address: [address] [place] [address] Result Comment: B. B ONE MARROW BIOPSY LEFT POSTERIOR ILIAC CRESTReceived in formalin 1 segment of cylindrical tissue aggregating to 0.9 x 0.2 x 0.2 cm, nesbitt to red-brown and of a firm consistency. Totally submitted in formalin in one cassette after decalcification.Gross examination performed at [facility], [address] [place] [address] CLIA# [id number]. BONE MARROW CLOT LEFT POSTERIOR ILIAC CRESTReceived in formalin are multiple nesbitt, soft feathery segments of tissue and a segment of red-brown hemorrhagic material aggregating to 2.0 x 1.6 x 0.4 cm. Totally submitted in one cassette.Gross examination performed at [facility], [address] [place] [address] CLIA# [id number] Gross examination performed at [facility], [address] [place], [place] [address]KVB October 27, 2022 2:42 PM Performed By: #### B MRT ####[facility] LABORATORYCLIA [id number] [place] [address] [place] MICROSCOPIC DESCRIPTION Normal [facility] Comment on above: Order Comment: Speci men Type: BONE MARROW SPECIMENOrdering Facility: [facility] Address: [facility] [place] [address] Result Comment: DESIREE PHERAL BLOOD:CBC DiffWBC 6.01 k/uL Neut% 68.1 %Hemoglobin 8.4 g/dL Lymph% 17.6 %MCV 113.1 fL Calloway% 11.1 %RDW-CV 18.8 % Eosin% 1.7 %Platelet [...] NGS pending. Performed By: #### B MRT ####[facility] LABORATORYCLIA [id number] [address] [place] BRIEF OP NOTon 10-24-2022 BRIEF OP NOT Normal [facility] CBC W Auto Differential pane l (Bld)on 10-24-2022 Basophils (Bld) [#/Vol] 0.05 10*3/uL Normal <0.11 [facility] Comment on above: Order Comment: Speci men Type: BLOOD SPECIMENOrdering Facility: [facility] Address: [address] [place] [address] Performed By: #### 5 7021-8 ####[facility] LABORATORYCLIA [id number] [address] Basophils/100 WBC (Bld) 0.8 % Normal [facility] Comment on above: Order Comment: Speci men Type: BLOOD SPECIMENOrdering Facility: [facility] Address: [address] [place] [address] Performed By: #### 5 7021-8 ####[facility] LABORATORYCLIA [id number] [address] [place] Differential cell count method Nom (Bld) Auto Normal [facility] Comment on above: Order Comment: Speci men Type: BLOOD SPECIMENOrdering Facility: [facility] Address: [address] [place] [address] Performed By: #### 5 7021-8 ####[facility] LABORATORYCLIA [id number] [address] [place] Eosinophils (Bld) [#/Vol] 0.10 10*3/uL Normal <0.46 [facility] Comment on above: Order Comment: Speci men Type: BLOOD SPECIMENOrdering Facility: [facility] Address: [address] [place] [address] Performed By: #### 5 7021-8 ####[facility] LABORATORYCLIA [id number] [address] Eosinophils/100 WBC (Bld) 1.7 % Normal [facility] Comment on above: Order Comment: Speci men Type: BLOOD SPECIMENOrdering Facility: [facility] Address: [address] [place] [address] Performed By: #### 5 7021-8 ####[facility] LABORATORYCLIA [id number] [address] [place] Erythrocyte distribution width (RBC) [Ratio] 18.8 % High 11.5-15.0 [facility] Comment on above: Order Comment: Speci men Type: BLOOD SPECIMENOrdering Facility: [facility] Address: [address] [place] [address] Performed By: #### 5 7021-8 ####[facility] LABORATORYCLIA [id number] [address] [place] Hematocrit (Bld) [Volume fraction] 25.0 % Low 39.0-51.0 [facility] Comment on above: Order Comment: Speci men Type: BLOOD SPECIMENOrdering Facility: [facility] Address: [address] [place] [address] Performed By: #### 5 7021-8 ####[facility] LABORATORYCLIA [id number] [address] [place] Hemoglobin (Bld) [Mass/Vol] 8.4 g/dL Low 13.0-17.0 [facility] Comment on above: Order Comment: Speci men Type: BLOOD SPECIMENOrdering Facility: [facility] Address: [address] [place] [address] Performed By: #### 5 7021-8 ####[facility] LABORATORYCLIA [id number] [address] Immature granulocytes (Bld) [#/Vol] 0.04 10*3/uL Normal <0.10 [facility] Comment on above: Order Comment: Speci men Type: BLOOD SPECIMENOrdering Facility: [facility] Address: [address] [place] [address] Performed By: #### 5 7021-8 ####[facility] LABORATORYCLIA [id number] [address] Immature granulocytes/100 WBC (Bld) 0.7 % Normal [facility] Comment on above: Order Comment: Speci men Type: BLOOD SPECIMENOrdering Facility: [facility] Address: [address] [place] [address] Performed By: #### 5 7021-8 ####[facility] LABORATORYCLIA [id number] [address] [place] Lymphocytes (Bld) [#/Vol] 1.06 10*3/uL Normal 1.00-4.00 [facility] Comment on above: Order Comment: Speci men Type: BLOOD SPECIMENOrdering Facility: [facility] Address: [address] [place] [address] Performed By: #### 5 7021-8 ####[facility] LABORATORYCLIA [id number] [address] Lymphocytes/100 WBC (Bld) 17.6 % Normal [facility] Comment on above: Order Comment: Speci men Type: BLOOD SPECIMENOrdering Facility: [facility] Address: [address] [place] [address] Performed By: #### 5 7021-8 ####[facility] LABORATORYCLIA [id number] [address] STATES OF [facility] MCH (RBC) [Entitic mass] 38.0 pg High 26.0-34.0 [facility] Comment on above: Order Comment: Speci men Type: BLOOD SPECIMENOrdering Facility: [facility] Address: [address] [place] [address] Performed By: #### 5 7021-8 ####[facility] LABORATORYCLIA [id number] [address] [place] MCHC (RBC) [Mass/Vol] 33.6 g/dL Normal 30.5-36.0 [facility] Comment on above: Order Comment: Speci men Type: BLOOD SPECIMENOrdering Facility: [facility] Address: [address] [place] [address] Performed By: #### 5 7021-8 ####[facility] LABORATORYCLIA [id number] [address] [place] MCV (RBC) [Entitic vol] 113.1 fL High 80.0-100.0 [facility] Comment on above: Order Comment: Speci men Type: BLOOD SPECIMENOrdering Facility: [facility] Address: [address] [place] [address] Performed By: #### 5 7021-8 ####[facility] LABORATORYCLIA [id number] [place] [address] [place] Monocytes (Bld) [#/Vol] 0.67 10*3/uL Normal <0.87 [facility] Comment on above: Order Comment: Speci men Type: BLOOD SPECIMENOrdering Facility: [facility] Address: [address] [address] Performed By: #### 5 7021-8 ####[facility] LABORATORYCLIA [id number] [place] [address] [place] Monocytes/100 WBC (Bld) 11.1 % Normal [facility] Comment on above: Order Comment: Speci men Type: BLOOD SPECIMENOrdering Facility: [facility] Address: [address] [address] Performed By: #### 5 7021-8 ####[facility]ORATORYCLIA [id number] [place] [address] [place] Neutrophils (Bld) [#/Vol] 4.09 10*3/uL Normal 1.45-7.50 [facility] Comment on above: Order Comment: Speci men Type: BLOOD SPECIMENOrdering Facility: [facility] Address: [address] [address] Performed By: #### 5 7021-8 ####[facility]ORATORYCLIA [id number] [address] [place] Neutrophils/100 WBC (Bld) 68.1 % Normal [facility] Comment on above: Order Comment: Speci men Type: BLOOD SPECIMENOrdering Facility: [facility] Address: [address] [address] Performed By: #### 5 7021-8 ####[facility]ORATORYCLIA [id number] [place] [address] [place] Nucleated RBC (Bld) [#/Vol] 0.05 10*3/uL High <0.01 [facility] Comment on above: Order Comment: Speci men Type: BLOOD SPECIMENOrdering Facility: [facility] Address: [address] [address] Performed By: #### 5 7021-8 ####[facility]ORATORYCLIA [id number] [address] [place] Nucleated RBC/100 WBC (Bld) [Ratio] 0.8 /100 WBC Normal [facility] Comment on above: Order Comment: Speci men Type: BLOOD SPECIMENOrdering Facility: [facility] Address: [address] [place] [address] Performed By: #### 5 7021-8 ####[facility] LABORATORYCLIA [id number] [address] [place] Platelet mean volume (Bld) [Entitic vol] 11.5 fL Normal 9.0-12.7 [facility] Comment on above: Order Comment: Speci men Type: BLOOD SPECIMENOrdering Facility: [facility] Address: [address] [place] [address] Performed By: #### 5 7021-8 ####[facility] LABORATORYCLIA [id number] [address] [place] Platelets (Bld) [#/Vol] 251 10*3/uL Normal 150-400 [facility] Comment on above: Order Comment: Speci men Type: BLOOD SPECIMENOrdering Facility: [facility] Address: [address] [place] [address] Performed By: #### 5 7021-8 ####[facility] LABORATORYCLIA [id number] [place] [address] [place] RBC (Bld) [#/Vol] 2.21 10*6/uL Low 4.20-6.00 [facility] Comment on above: Order Comment: Speci men Type: BLOOD SPECIMENOrdering Facility: [facility] Address: [address] [place] [address] Performed By: #### 5 7021-8 ####[facility] LABORATORYCLIA [id number] [address] [place] WBC (Bld) [#/Vol] 6.01 10*3/uL Normal 3.70-11.00 [facility] Comment on above: Order Comment: Speci men Type: BLOOD SPECIMENOrdering Facility: [facility] Address: [place] [address] Performed By: #### 5 7021-8 ####[facility] LABORATORYCLIA [id number] [place] [address] [place] Basophils (Bld) [#/Vol] 0.05 10*3/uL <0.11 k/uL [facility] Basophils/100 WBC (Bld) 0.8 % [facility] Differential cell count method Nom (Bld) Auto [facility] Eosinophils (Bld) [#/Vol] 0.10 10*3/uL <0.46 k/uL [facility] Eosinophils/100 WBC (Bld) 1.7 % [facility] Erythrocyte distribution width (RBC) [Ratio] 18.8 % High 11.5 - 15.0 % [facility] Hematocrit (Bld) [Volume fraction] 25.0 % Low 39.0 - 51.0 % [facility] Hemoglobin (Bld) [Mass/Vol] 8.4 g/dL Low 13.0 - 17.0 g/dL [facility] Immature granulocytes (Bld) [#/Vol] 0.04 10*3/uL <0.10 k/uL [facility] Immature granulocytes/100 WBC (Bld) 0.7 % [facility] Lymphocytes (Bld) [#/Vol] 1.06 10*3/uL 1.00 - 4.00 k/uL [facility] Lymphocytes/100 WBC (Bld) 17.6 % [facility] MCH (RBC) [Entitic mass] 38.0 pg High 26.0 - 34.0 pg [facility] MCHC (RBC) [Mass/Vol] 33.6 g/dL 30.5 - 36.0 g/dL [facility] MCV (RBC) [Entitic vol] 113.1 fL High 80.0 - 100.0 fL [facility] Monocytes (Bld) [#/Vol] 0.67 10*3/uL <0.87 k/uL [facility] Monocytes/100 WBC (Bld) 11.1 % [facility] Neutrophils (Bld) [#/Vol] 4.09 10*3/uL 1.45 - 7.50 k/uL [facility] Neutrophils/100 WBC (Bld) 68.1 % [facility] Nucleated RBC (Bld) [#/Vol] 0.05 10*3/uL High <0.01 k/uL [facility] Nucleated RBC/100 WBC (Bld) [Ratio] 0.8 /100 WBC [facility] Platelet mean volume (Bld) [Entitic vol] 11.5 fL 9.0 - 12.7 fL [facility] Platelets (Bld) [#/Vol] 251 10*3/uL 150 - 400 k/uL [facility] RBC (Bld) [#/Vol] 2.21 10*6/uL Low 4.20 - 6.00 m/uL [facility] WBC (Bld) [#/Vol] 6.01 10*3/uL 3.70 - 11.00 k/uL [facility] CHROM ANAL W RFX MDS FISHon 10-24-2022 CHROM ANLY W/RFLX MDS FISH Normal [facility] Comment on above: Order Comment: Speci men Type: BONE MARROW SPECIMENOrdering Facility: [facility] Address: [facility] [address] Result Comment: Woodrow hurst Accession Number: [id number]: Randa RowellPathologist: Juanrgicmartin Pathology No: [id number] diagnosis: Macrocytic anemiaSpecimen Type: Bone marrowReceived Date: [...] reviewed by Gypsy Johns MD, PhDPerformed by [facility]Pathology and Laboratory Medicine InstituteDivision of Molecular PathologyCytogenetics Lab, [id number] [place] [place], [place] [address]Phone: Toll free: Performed By: #### C HRMDS ####[facility] LIMSCLIA [id number] [place] [address] [place] [address] BONE MARROW BX AND ASPIRA TIONon 10-24-2022 CT BONE MARROW BX AND ASPIRATION Normal [facility] DNA EXTRACTION BONE MARROW ( BUFFY COAT)on 10-24-2022 DNA EXTRACTION BONE MARROW (BUFFY COAT) Normal [facility] Comment on above: Order Comment: Speci men Type: BONE MARROW SPECIMENOrdering Facility: [facility] Address: [address] [place] [address] Result Comment: This specimen was received and successfully processed for future DNA purification should molecular testing be needed. Specimens will be available for 3 years from date of collection.To order testing on this specimen for [facility] patients, please place an [facility] order for DNA and RNA Clinical Testing (SQNUCADD). To order testing for patients outside of the [facility] system, please request DNA and RNA for Clinical Testing, order code [id number].If additional paperwork is required for testing, please send completed forms via secure email to . Performed By: #### N UCBUF ####[facility] LIMSCLIA [id number] [address] [place] FLOW CYTOMETRY BONE MARROW H OLD (BMHOLD)on 10-24-2022 FLOW CYTOMETRY ORDER STATUS See Results in chart under F case ID Normal [facility] Comment on above: Order Comment: Speci men Type: BONE MARROW SPECIMENOrdering Facility: [facility] Address: [address] [place] [address] Performed By: #### B MHOLD ####[facility] LABCLIA [id number] [address] [place] FLT3 ITD HN BONE MARROWon CARLITO SIGNOUT PATHOLOGIST [id number] Normal [facility] Comment on above: Order Comment: Speci men Type: BONE MARROW SPECIMENOrdering Facility: [facility] Address: [address] [place] [address] Performed By: #### F 3IM, [facility] ####[facility] [id number] [facility] HOSPITALTrice [facility] [place] [address] [place] FLT3 ITD HN PANEL BONE MARROW Normal [facility] Comment on above: Order Comment: Speci men Type: BONE MARROW SPECIMENOrdering Facility: [facility] Address: [address] [facility] [place] [id number] Result Comment: FLT3 Internal Tandem Duplication (ITD) Mutation TestingLaboratory Accession Number: [id number] Internal Tandem Duplication (ITD) mutation: Not DetectedComment:FLT3/ITD [...] from the specimen provided. Regions of the QZT1wdobrpqm kinase receptor gene are subjected to the [...] clinical implications.Blood Rev.2013;27:13-22.2) Alphonse CARLOS, Neema M, Gibson [place], et al. Prognostic relevance ofintegrated genetic profiling in acute myeloid leukemia. N Engl J Med.2011Jan 28;366 (12):1079-22.3) Harinder H, Aden E, Davy Nuñez, et al. Diagnosis and mangement ofAML in adults: 2017 ELN recommendations from an international expertpanel. Blood [phone] (2017).Disclaimer:This test was developed and its performance characteristics determinedby [facility]'s [facility] Pathology and LaboratoryMedicine [place] ([facility] FACILITYPLSD). It has not been cleared or approved bythe FDA. [facility] is regulated under CLIA as certified to perform high-complexity testing. This test is used for clinical purposes. It shouldnot be regarded as investigational or for research.Testing and interpretation performed at [facility], [address] [place] [address]. CLIA Number: [id number] reviewed by Tahmina Duong, PhD, [facility] Performed By: #### F 3IM, MYMNGS ####CLARITY SpineFrontierSCArsenal MedicalA [id number] [place] [address] [place] HISTORY PHYSICALon 2 HISTORY PHYSICAL Normal [facility] IMAGING GUIDED BONE MARROW B IOPSY AND ASPIRATION (SHAUN)(DE NO AV,[facility])on 10-24-2022 [facility] MYELOID NGS PANEL BONE MARRO Won 10-24-2022 MYELOID NGS PANEL BONE MARROW Normal [facility] Comment on above: Order Comment: Speci men Type: BONE MARROW SPECIMENOrdering Facility: [facility] Address: [address] [place] [address] Result Comment: Myel oid NGS Panel Bone MarrowLaboratory Accession Number: [id number]:Please see linked document and/or separate report for full result whenavailable.As reviewed by Laron Jeong MD Performed By: #### F 3IM, MYMNGS ####CLARITY ILLUMINA LIMSCLIA [id number] [address] [address] [place] [facility] PT panel Coag (PPP)on 2021 INR Coag (PPP) [Relative time] 1.3 {INR} Normal 0.9-1.3 [facility] Comment on above: Order Comment: Elfego gilbert Type: BLOOD SPECIMENOrdering Facility: [facility] Address: [address] [place] [id number] Result Comment: Tanna min K Antagonist (VKA) Therapeutic Range: INR 2 to 3 (Target INR of 2.5)Note: For patients treated with VKA drugs, such as warfarin, the [place] [employer] 2012 Guideline recommends [...] of 2.5 to 3.5 (target INR of 3).Imantt GH, et al. Chest 2012, 141:7S-47SNishimura RA, et al. [facility] 2017, 70: 252-289 Performed By: #### 3 4528-0 ####[facility] LABORATORYCLIA [id number] [address] STATES OF [facility] PT Coag (PPP) [Time] 13.5 s High 9.7-13.0 [facility] Comment on above: Order Comment: Elfego gilbert Type: BLOOD SPECIMENOrdering Facility: [facility] Address: [place] [address] Performed By: #### 3 4528-0 ####[facility] LABORATORYCLIA [id number] [address] OF [facility] INR Coag (PPP) [Relative time] 1.3 {INR} 0.9 - 1.3 [facility] PT Coag (PPP) [Time] 13.5 s High 9.7 - 1 3.0 sec [facility] CNOVon 10-16-2022 CNOV Normal [facility] CNOVSPon 10-09-2022 CNOVSP Normal [facility] CNPNon 10-09-2022 CNPN Normal [facility] CNPNon 09-19-2022 CNPN Normal [facility] HISTORY PHYSICALon HISTORY PHYSICAL HNO ID: [id number] Author: Baljinder Trevizo MD Service: Pain Management [...] reported polyps per patient recollection Hypertension Hypothyroidism senior care current use of anticoagulants with INR goal [...] RIGHT OP SURGERY Right 12/18/[address] [facility] ARTHROPLASTY TOTAL SHOULDER 11/09/2008 right ARTHROSCOPY OF JOINT UNLISTED Elbow right CABG (4) VEIN GRAFTS AND ARTERIAL GRAFT(S) 07/21/[address] [facility] COLONOSCOPY FLX DX W/COLLJ SPEC WHEN PFRMD [...] DATE: July 29, 2022 TIME: 11:24 AM [facility] NURSING PROGon 07-29-2022 NURSING PROG HNO ID: [id number] Author: Alice Armstrong RN Service: Nursing Author [...] and rest. Friend verbalizes unentertaining of this. [facility] OPERATIVE NOon 07-29-2022 OPERATIVE NO HNO ID: [id number] Author: Baljinder Trevizo MD Service: Pain Management [...] DATE: August 01, 2022 TIME: 12:26 PM Normal [facility] XR FLUOROSCOPYon 07-29-2022 XR FLUOROSCOPY * * *Final Report* * * DATE OF EXAM: Jul 29 2022 12:00PM [facility] 5513 - XR FLUOROSCOPY / PROCEDURE REASON: pain * * * * Physician Interpretation * * * * TECHNIQUE: XR FLUOROSCOPY COMPARISON: No prior study for comparison. TECHNIQUE: 5 limited fluoroscopic images of the lumbar spine CLINICAL INDICATION: pain Fluoroscopic Radiation Summary: Plane A, Air Kerma: 11.0 mGy Dose Area Product (DAP): 1511.3 mGy*cm^2 Fluoro time: 0:24 min:sec IMAGE NUMBER: 5 RESULT: Taylor directed at the the lower lumbar spine and sacrum. IMPRESSION: 1. As above. Repack Room Worker: PSCB Transcribe Date/Time: Jul 29 2022 12:07P Dictated by : JONATHON FUNG MD This examination was interpreted and the report reviewed and electronically signed by: JONATHON FUNG MD on Jul 29 2022 12:08PM EST [id number] Normal [facility] Basic metabolic 2000 panelon 07-24-2022 Anion gap [Moles/Vol] 11 mmol/L Normal 9-18 [facility] Comment on above: Order Comment: Speci men Type: BLOOD SPECIMENOrdering Facility: [facility] Address: [address] [place] [address] Performed By: #### 2 4321-2 ####[facility] LABORATORYCLIA [id number] [place] [address] [place] Calcium [Mass/Vol] 9.0 mg/dL Normal 8.5-10.2 [facility] Comment on above: Order Comment: Speci men Type: BLOOD SPECIMENOrdering Facility: [facility] Address: [address] [place] [address] Performed By: #### 2 4321-2 ####[facility] LABORATORYCLIA [id number] [place] [address] [place] Chloride [Moles/Vol] 100 mmol/L Normal 97-105 [facility] Comment on above: Order Comment: Speci men Type: BLOOD SPECIMENOrdering Facility: [facility] Address: [address] [place] [address] Performed By: #### 2 4321-2 ####[facility] LABORATORYCLIA [id number] [place] [address] [place] CO2 [Moles/Vol] 29 mmol/L Normal 22-30 [facility] Comment on above: Order Comment: Speci men Type: BLOOD SPECIMENOrdering Facility: [facility] Address: [address] [place] [address] Performed By: #### 2 4321-2 ####[facility] LABORATORYCLIA [id number] [address] STATES OF [facility] Creatinine [Mass/Vol] 1.18 mg/dL Normal 0.73-1.22 [facility] Comment on above: Order Comment: Speci men Type: BLOOD SPECIMENOrdering Facility: [facility] Address: [address] [place] [address] Performed By: #### 2 4321-2 ####[facility] LABORATORYCLIA [id number] [address] OF [facility] ESTIMATED GLOMERULAR FILTRATION RATE 60 mL/min/1.73m??? Normal >=60 [facility] Comment on above: Order Comment: Speci men Type: BLOOD SPECIMENOrdering Facility: [facility] Address: [address] [place] [address] Result Comment: Concepción mated Glomerular Filtration Rate [...] actual GFR. Performed By: #### 2 4321-2 ####[facility] LABORATORYCLIA [id number] [place] [address] [place] Glucose [Mass/Vol] 104 mg/dL High 74-99 [facility] Comment on above: Order Comment: Elfego gilbert Type: BLOOD SPECIMENOrdering Facility: [facility] Address: [address] [place] [address] Result Comment: The [place] [employer] (ADA) provides guidance for cutoff [...] Standards of Medical Care in Diabetes 2016, [place] [employer]. Diabetes Care. 2016.39(Suppl 1). Performed By: #### 2 4321-2 ####[facility] LABORATORYCLIA [id number] [place] [address] [place] Potassium [Moles/Vol] 4.3 mmol/L Normal 3.7-5.1 [facility] Comment on above: Order Comment: Elfego gilbert Type: BLOOD SPECIMENOrdering Facility: [facility] Address: [address] [place] [address] Performed By: #### 2 4321-2 ####[facility] LABORATORYCLIA [id number] [place] [address] [place] Sodium [Moles/Vol] 140 mmol/L Normal 136-144 [facility] Comment on above: Order Comment: Elfego gilbert Type: BLOOD SPECIMENOrdering Facility: [facility] Address: [address] [place] [address] Performed By: #### 2 4321-2 ####[facility] LABORATORYCLIA [id number] [place] [address] [place] Urea nitrogen [Mass/Vol] 40 mg/dL High 9-24 [facility] Comment on above: Order Comment: Speci men Type: BLOOD SPECIMENOrdering Facility: [facility] Address: [address] [place] [address] Performed By: #### 2 4321-2 ####[facility] LABORATORYCLIA [id number] [place] [address] [place] CNOVon 07-17-2022 CNOV Normal [facility] CNPNon 07-10-2022 CNPN Normal [facility] Basic metabolic 2000 panelon 07-09-2022 Anion gap [Moles/Vol] 7 mmol/L Low 9-18 [facility] Comment on above: Order Comment: Speci men Type: BLOOD SPECIMENOrdering Facility: [facility] Address: [address] [place] [address] Performed By: #### 2 4321-2 ####[facility] LABORATORYCLIA [id number] [place] [address] [place] Calcium [Mass/Vol] 9.1 mg/dL Normal 8.5-10.2 [facility] Comment on above: Order Comment: Speci men Type: BLOOD SPECIMENOrdering Facility: [facility] Address: [address] [place] [address] Performed By: #### 2 4321-2 ####[facility] LABORATORYCLIA [id number] [place] [address] [place] Chloride [Moles/Vol] 97 mmol/L Normal 97-105 [facility] Comment on above: Order Comment: Speci men Type: BLOOD SPECIMENOrdering Facility: [facility] Address: [address] [place] [address] Performed By: #### 2 4321-2 ####[facility] LABORATORYCLIA [id number] [place] [address] [place] CO2 [Moles/Vol] 32 mmol/L High 22-30 [facility] Comment on above: Order Comment: Specjason men Type: BLOOD SPECIMENOrdering Facility: [facility] Address: [address] [place] [address] Performed By: #### 2 4321-2 ####[facility] [id number] [address] STATES OF [facility] Creatinine [Mass/Vol] 1.04 mg/dL Normal 0.73-1.22 [facility] Comment on above: Order Comment: Speci men Type: BLOOD SPECIMENOrdering Facility: [facility] Address: [address] [place] [address] Performed By: #### 2 4321-2 ####[facility] HOSPITALIA [id number] [address] ESTIMATED GLOMERULAR FILTRATION RATE 70 mL/min/1.73m??? Normal >=60 [facility] Comment on above: Order Comment: Elfego men Type: BLOOD SPECIMENOrdering Facility: [facility] Address: [address] [place] [address] Result Comment: Concepción mated Glomerular Filtration Rate [...] actual GFR. Performed By: #### 2 4321-2 ####[facility] LABORATORYIA [id number] [address] STATES OF [facility] Glucose [Mass/Vol] 96 mg/dL Normal 74-99 [facility] Comment on above: Order Comment: Elfego gilbert Type: BLOOD SPECIMENOrdering Facility: [facility] Address: [address] [place] [address] Result Comment: The [place] Diabetes Association (ADA) provides guidance for cutoff [...] Standards of Medical Care in Diabetes 2016, [place] [employer]. Diabetes Care. 2016.39(Suppl 1). Performed By: #### 2 4321-2 ####[facility] LABORATORYCLIA [id number] [address] STATES OF [facility] Potassium [Moles/Vol] 4.4 mmol/L Normal 3.7-5.1 [facility] Comment on above: Order Comment: Speci men Type: BLOOD SPECIMENOrdering Facility: [facility] Address: [address] [place] [address] Performed By: #### 2 4321-2 ####[facility] LABORATORYCLIA [id number] [address] Sodium [Moles/Vol] 136 mmol/L Normal 136-144 [facility] Comment on above: Order Comment: Julii vladimir Type: BLOOD SPECIMENOrdering Facility: [facility] Address: [address] [place] [address] Performed By: #### 2 4321-2 ####[facility] LABORATORYCLIA [id number] [address] STATES [facility] Urea nitrogen [Mass/Vol] 26 mg/dL High 9-24 [facility] Comment on above: Order Comment: Speci men Type: BLOOD SPECIMENOrdering Facility: [facility] Address: [address] [place] [address] Performed By: #### 2 4321-2 ####[facility] LABORATORYCLIA [id number] [address] [place] CASE MANAGEMon 07-09-2022 CASE MANAGEM Normal [facility] CBC W Auto Differential pane l (Bld)on 07-09-2022 Basophils (Bld) [#/Vol] 0.07 10*3/uL Normal <0.11 [facility] Comment on above: Order Comment: Speci men Type: BLOOD SPECIMENOrdering Facility: [facility] Address: [address] [place] [address] Performed By: #### 5 7021-8 ####[facility] LABORATORYCLIA [id number] [address] [place] Basophils/100 WBC (Bld) 1.0 % Normal [facility] Comment on above: Order Comment: Speci men Type: BLOOD SPECIMENOrdering Facility: [facility] Address: [address] [place] [address] Performed By: #### 5 7021-8 ####[facility] LABORATORYCLIA [id number] [address] [place] Differential cell count method Nom (Bld) Auto Normal [facility] Comment on above: Order Comment: Speci men Type: BLOOD SPECIMENOrdering Facility: [facility] Address: [address] [place] [address] Performed By: #### 5 7021-8 ####[facility] LABORATORYCLIA [id number] [address] [place] Eosinophils (Bld) [#/Vol] 0.13 10*3/uL Normal <0.46 [facility] Comment on above: Order Comment: Speci men Type: BLOOD SPECIMENOrdering Facility: [facility] Address: [address] [place] [address] Performed By: #### 5 7021-8 ####[facility] LABORATORYCLIA [id number] [address] [place] Eosinophils/100 WBC (Bld) 1.8 % Normal [facility] Comment on above: Order Comment: Speci men Type: BLOOD SPECIMENOrdering Facility: [facility] Address: [address] [place] [address] Performed By: #### 5 7021-8 ####[facility] LABORATORYCLIA [id number] [address] Erythrocyte distribution width (RBC) [Ratio] 19.8 % High 11.5-15.0 [facility] Comment on above: Order Comment: Speci men Type: BLOOD SPECIMENOrdering Facility: [facility] Address: [address] [place] [address] Performed By: #### 5 7021-8 ####[facility] LABORATORYCLIA [id number] [address] OF [facility] Hematocrit (Bld) [Volume fraction] 26.9 % Low 39.0-51.0 [facility] Comment on above: Order Comment: Speci men Type: BLOOD SPECIMENOrdering Facility: [facility] Address: [address] [place] [address] Performed By: #### 5 7021-8 ####[facility] LABORATORYCLIA [id number] [address] STATES OF [facility] Hemoglobin (Bld) [Mass/Vol] 9.1 g/dL Low 13.0-17.0 [facility] Comment on above: Order Comment: Speci men Type: BLOOD SPECIMENOrdering Facility: [facility] Address: [address] [place] [address] Performed By: #### 5 7021-8 ####[facility] LABORATORYCLIA [id number] [address] OF [facility] IMMATURE GRAN % 0.4 % Normal [facility] Comment on above: Order Comment: Speci men Type: BLOOD SPECIMENOrdering Facility: [facility] Address: [address] [place] [address] Performed By: #### 5 7021-8 ####[facility] LABORATORYCLIA [id number] [address] IMMATURE GRAN ABS 0.03 k/uL Normal <0.10 [facility] Comment on above: Order Comment: Speci men Type: BLOOD SPECIMENOrdering Facility: [facility] Address: [address] [place] [address] Performed By: #### 5 7021-8 ####[facility] LABORATORYCLIA [id number] [address] [place] Lymphocytes (Bld) [#/Vol] 1.31 10*3/uL Normal 1.00-4.00 [facility] Comment on above: Order Comment: Speci men Type: BLOOD SPECIMENOrdering Facility: [facility] Address: [address] [place] [address] Performed By: #### 5 7021-8 ####[facility] LABORATORYCLIA [id number] [address] Lymphocytes/100 WBC (Bld) 18.0 % Normal [facility] Comment on above: Order Comment: Speci men Type: BLOOD SPECIMENOrdering Facility: [facility] Address: [address] [place] [address] Performed By: #### 5 7021-8 ####[facility] LABORATORYCLIA [id number] [address] STATES [facility] MCH (RBC) [Entitic mass] 37.4 pg High 26.0-34.0 [facility] Comment on above: Order Comment: Speci men Type: BLOOD SPECIMENOrdering Facility: [facility] Address: [address] [place] [address] Performed By: #### 5 7021-8 ####[facility] LABORATORYCLIA [id number] [address] [place] MCHC (RBC) [Mass/Vol] 33.8 g/dL Normal 30.5-36.0 [facility] Comment on above: Order Comment: Speci men Type: BLOOD SPECIMENOrdering Facility: [facility] Address: [address] [place] [address] Performed By: #### 5 7021-8 ####[facility] LABORATORYCLIA [id number] [address] [place] MCV (RBC) [Entitic vol] 110.7 fL High 80.0-100.0 [facility] Comment on above: Order Comment: Speci men Type: BLOOD SPECIMENOrdering Facility: [facility] Address: [address] [place] [address] Performed By: #### 5 7021-8 ####[facility] LABORATORYCLIA [id number] [address] [place] Monocytes (Bld) [#/Vol] 0.98 10*3/uL High <0.87 [facility] Comment on above: Order Comment: Speci men Type: BLOOD SPECIMENOrdering Facility: [facility] Address: [address] [place] [address] Performed By: #### 5 7021-8 ####[facility] LABORATORYCLIA [id number] [address] [place] Monocytes/100 WBC (Bld) 13.5 % Normal [facility] Comment on above: Order Comment: Speci men Type: BLOOD SPECIMENOrdering Facility: [facility] Address: [address] [place] [address] Performed By: #### 5 7021-8 ####[facility] LABORATORYCLIA [id number] [address] [place] Neutrophils (Bld) [#/Vol] 4.74 10*3/uL Normal 1.45-7.50 [facility] Comment on above: Order Comment: Speci men Type: BLOOD SPECIMENOrdering Facility: [facility] Address: [address] [place] [address] Performed By: #### 5 7021-8 ####[facility] LABORATORYCLIA [id number] [address] [place] Neutrophils/100 WBC (Bld) 65.3 % Normal [facility] Comment on above: Order Comment: Speci men Type: BLOOD SPECIMENOrdering Facility: [facility] Address: [address] [place] [address] Performed By: #### 5 7021-8 ####[facility] LABORATORYCLIA [id number] [place] [address] [place] Nucleated RBC (Bld) [#/Vol] 0.02 10*3/uL High <0.01 [facility] Comment on above: Order Comment: Speci men Type: BLOOD SPECIMENOrdering Facility: [facility] Address: [address] [place] [address] Performed By: #### 5 7021-8 ####[facility] LABORATORYCLIA [id number] [address] [place] Nucleated RBC/100 WBC (Bld) [Ratio] 0.3 /100 WBC Normal [facility] Comment on above: Order Comment: Speci men Type: BLOOD SPECIMENOrdering Facility: [facility] Address: [address] [place] [address] Performed By: #### 5 7021-8 ####[facility] LABORATORYCLIA [id number] [place] [address] [place] Platelet mean volume (Bld) [Entitic vol] 11.3 fL Normal 9.0-12.7 [facility] Comment on above: Order Comment: Speci men Type: BLOOD SPECIMENOrdering Facility: [facility] Address: [address] [place] [address] Performed By: #### 5 7021-8 ####[facility] LABORATORYCLIA [id number] [address] [place] Platelets (Bld) [#/Vol] 236 10*3/uL Normal 150-400 [facility] Comment on above: Order Comment: Speci men Type: BLOOD SPECIMENOrdering Facility: [facility] Address: [address] [place], [place] [address] Performed By: #### 5 7021-8 ####[facility] LABORATORYCLIA [id number] [place] [address] [place] RBC (Bld) [#/Vol] 2.43 10*6/uL Low 4.20-6.00 [facility] Comment on above: Order Comment: Speci men Type: BLOOD SPECIMENOrdering Facility: [facility] Address: [address] [place] [address] Performed By: #### 5 7021-8 ####[facility] LABORATORYCLIA [id number] [place] [address] [place] WBC (Bld) [#/Vol] 7.26 10*3/uL Normal 3.70-11.00 [facility] Comment on above: Order Comment: Speci men Type: BLOOD SPECIMENOrdering Facility: [facility] Address: [facility] [place] [address] Performed By: #### 5 7021-8 ####[facility] LABORATORYCLIA [id number] [address] [place] CNDSon 07-09-2022 CNDS Normal [facility] CASE MGT INIT ASSESon 2021 CASE MGT INIT ASSES Normal [facility] CONSULT PROGon 07-08-2022 CONSULT PROG Normal [facility] Magnesium SerPl-mCncon 07-08 Magnesium [Mass/Vol] 1.9 mg/dL Normal 1.7-2.3 [facility] Comment on above: Order Comment: Speci men Type: BLOOD SPECIMENOrdering Facility: [facility] Address: [facility] [place] [address] Performed By: #### 1 9123-9, 57088-1 ####[facility] LABORATORYCLIA [id number] [address] [place] Renal function 2000 panelon 07-08-2022 Albumin [Mass/Vol] 4.0 g/dL Normal 3.9-4.9 [facility] Comment on above: Order Comment: Speci men Type: BLOOD SPECIMENOrdering Facility: [facility] Address: [facility] [place] [address] Performed By: #### 1 9123-9, 30430-2 ####[facility] LABORATORYCLIA [id number] [place] [address] [place] Anion gap [Moles/Vol] 9 mmol/L Normal 9-18 [facility] Comment on above: Order Comment: Speci men Type: BLOOD SPECIMENOrdering Facility: [facility] Address: [address] [place] [address] Performed By: #### 1 23-9, 34643-0 ####[facility] LABORATORYCLIA [id number] [place] [address] [place] Calcium [Mass/Vol] 9.2 mg/dL Normal 8.5-10.2 [facility] Comment on above: Order Comment: Speci men Type: BLOOD SPECIMENOrdering Facility: [facility] Address: [address] [place] [address] Performed By: #### 1 23-9, 65632-2 ####[facility] LABORATORYCLIA [id number] [place] [address] [place] Chloride [Moles/Vol] 94 mmol/L Low 97-105 [facility] Comment on above: Order Comment: Speci men Type: BLOOD SPECIMENOrdering Facility: [facility] Address: [address] [place] [address] Performed By: #### 1 239, 51815-3 ####[facility] LABORATORYCLIA [id number] [place] [address] [place] CO2 [Moles/Vol] 32 mmol/L High 22-30 [facility] Comment on above: Order Comment: Speci men Type: BLOOD SPECIMENOrdering Facility: [facility] [facility] Address: [address] [place] [address] Performed By: #### 1 239, 77135-8 ####[facility]ORATORYCLIA [id number] [place] [address] [place] Creatinine [Mass/Vol] 1.09 mg/dL Normal 0.73-1.22 [facility] Comment on above: Order Comment: Speci men Type: BLOOD SPECIMENOrdering Facility: [facility] Address: [address] [place] [address] Performed By: #### 1 9123-9, 39988-0 ####[facility]ORATORYCLIA [id number] [place] [address] [place] ESTIMATED GLOMERULAR FILTRATION RATE 66 mL/min/1.73m??? Normal >=60 [facility] Comment on above: Order Comment: Elfego gilbert Type: BLOOD SPECIMENOrdering Facility: [facility] Address: [address] [place] [address] Result Comment: Concepción mated Glomerular Filtration Rate [...] actual GFR. Performed By: #### 1 9123-9, 41387-4 ####[facility] LABORATORYCLIA [id number] [place] [address] [place] Glucose [Mass/Vol] 103 mg/dL High 74-99 [facility] Comment on above: Order Comment: Elfego gilbert Type: BLOOD SPECIMENOrdering Facility: [facility] Address: [address] [place] [address] Result Comment: The [place] Diabetes Association (ADA) provides guidance for cutoff [...] Standards of Medical Care in Diabetes 2016, [place] [employer] Association. Diabetes Care. 2016.39(Suppl 1). Performed By: #### 1 9123-9, 09641-5 ####[facility] LABORATORYCLIA [id number] [place] [id number] [place] Phosphate [Mass/Vol] 3.7 mg/dL Normal 2.7-4.8 [facility] Comment on above: Order Comment: Speci men Type: BLOOD SPECIMENOrdering Facility: [facility] Address: [address] [place] [address] Performed By: #### 1 9123-9, 56561-5 ####[facility] LABORATORYCLIA [id number] [place] [address] [place] Potassium [Moles/Vol] 3.9 mmol/L Normal 3.7-5.1 [facility] Comment on above: Order Comment: Speci men Type: BLOOD SPECIMENOrdering Facility: [facility] Address: [address] [place] [address] Performed By: #### 1 9123-9, 28290-4 ####[facility] LABORATORYCLIA [id number] [address] [place] Sodium [Moles/Vol] 135 mmol/L Low 136-144 [facility] Comment on above: Order Comment: Speci men Type: BLOOD SPECIMENOrdering Facility: [facility] Address: [address] [place] [address] Performed By: #### 1 9123-9, 62957-3 ####[facility] LABORATORYCLIA [id number] [address] [place] Urea nitrogen [Mass/Vol] 26 mg/dL High 9-24 [facility] Comment on above: Order Comment: Speci men Type: BLOOD SPECIMENOrdering Facility: [facility] Address: [address] [place] [address] Performed By: #### 1 9123-9, 48280-8 ####[facility] LABORATORYCLIA [id number] [place] [address] [place] CONSULT PROGon 07-07-2022 CONSULT PROG Normal [facility] Renal function 2000 panelon 07-07-2022 Albumin [Mass/Vol] 4.3 g/dL Normal 3.9-4.9 [facility] Comment on above: Order Comment: Speci men Type: BLOOD SPECIMENOrdering Facility: [facility] Address: [address] [address] Performed By: #### 2 4362-6 ####[facility] LABORATORYCLIA [id number] [place] [address] [place] Anion gap [Moles/Vol] 11 mmol/L Normal 9-18 [facility] Comment on above: Order Comment: Speci men Type: BLOOD SPECIMENOrdering Facility: [facility] Address: [address] [place] [address] Performed By: #### 2 4362-6 ####[facility] LABORATORYCLIA [id number] [place] [address] [place] Calcium [Mass/Vol] 8.9 mg/dL Normal 8.5-10.2 [facility] Comment on above: Order Comment: Speci men Type: BLOOD SPECIMENOrdering Facility: [facility] Address: [address] [place] [address] Performed By: #### 2 4362-6 ####[facility] LABORATORYCLIA [id number] [place] [address] [place] Chloride [Moles/Vol] 94 mmol/L Low 97-105 [facility] Comment on above: Order Comment: Speci men Type: BLOOD SPECIMENOrdering Facility: [facility] Address: [address] [place] [address] Performed By: #### 2 4362-6 ####[facility]ATORYCLIA [id number] [place] [address] [place] CO2 [Moles/Vol] 33 mmol/L High 22-30 [facility] Comment on above: Order Comment: Speci men Type: BLOOD SPECIMENOrdering Facility: [facility] Address: [address] [place] [address] Performed By: #### 2 4362-6 ####[facility] LABORATORYCLIA [id number] [place] [address] [place] Creatinine [Mass/Vol] 1.10 mg/dL Normal 0.73-1.22 [facility] Comment on above: Order Comment: Speci men Type: BLOOD SPECIMENOrdering Facility: [facility] Address: [address] [place] [address] Performed By: #### 2 4362-6 ####[facility] HOSPITALIA [id number] [address] ESTIMATED GLOMERULAR FILTRATION RATE 65 mL/min/1.73m??? Normal >=60 [facility] Comment on above: Order Comment: Elfego vladimir Type: BLOOD SPECIMENOrdering Facility: [facility] Address: [address] [place] [address] Result Comment: Concepción mated Glomerular Filtration Rate [...] actual GFR. Performed By: #### 2 4362-6 ####[facility] HOSPITALIA [id number] [place] [address] [place] Glucose [Mass/Vol] 110 mg/dL High 74-99 [facility] Comment on above: Order Comment: Elfego vladimir Type: BLOOD SPECIMENOrdering Facility: [facility] Address: [address] [place] [address] Result Comment: The [place] Diabetes Association (ADA) provides guidance for cutoff [...] Standards of Medical Care in Diabetes 2016, [place] [employer] Association. Diabetes Care. 2016.39(Suppl 1). Performed By: #### 2 4362-6 ####[facility]ATORYCLIA [id number] [place] [address] [place] Phosphate [Mass/Vol] 4.0 mg/dL Normal 2.7-4.8 [facility] Comment on above: Order Comment: Speci men Type: BLOOD SPECIMENOrdering Facility: [facility] Address: [address] [place] [address] Performed By: #### 2 4362-6 ####[facility]ORYCLIA [id number] [place] [address] [place] Potassium [Moles/Vol] 4.0 mmol/L Normal 3.7-5.1 [facility] Comment on above: Order Comment: Speci men Type: BLOOD SPECIMENOrdering Facility: [facility] Address: [address] [place] [address] Performed By: #### 2 4362-6 ####[facility] LABORATORYCLIA [id number] [address] STATES OF [facility] Sodium [Moles/Vol] 138 mmol/L Normal 136-144 [facility] Comment on above: Order Comment: Speci men Type: BLOOD SPECIMENOrdering Facility: [facility] Address: [address] [place] [address] Performed By: #### 2 4362-6 ####[facility] LABORATORYCLIA [id number] [place] [address] [place] Urea nitrogen [Mass/Vol] 28 mg/dL High 9-24 [facility] Comment on above: Order Comment: Speci men Type: BLOOD SPECIMENOrdering Facility: [facility] Address: [address] [place] [address] Performed By: #### 2 4362-6 ####[facility] LABORATORYCLIA [id number] [place] [address] [place] US DVT LOWER BILon US DVT LOWER RALF Normal [facility] CBC W Auto Differential pane l (Bld)on 07-06-2022 Basophils (Bld) [#/Vol] 0.07 10*3/uL Normal <0.11 [facility] Comment on above: Order Comment: Speci men Type: BLOOD SPECIMENOrdering Facility: [facility] Address: [address] [place] [address] Performed By: #### 5 7021-8 ####[facility] LABORATORYCLIA [id number] [address] STATES [facility] Basophils/100 WBC (Bld) 0.9 % Normal [facility] Comment on above: Order Comment: Speci men Type: BLOOD SPECIMENOrdering Facility: [facility] Address: [address] [place] [address] Performed By: #### 5 7021-8 ####[facility]ATORYCLIA [id number] [address] Differential cell count method Nom (Bld) Auto Normal [facility] Comment on above: Order Comment: Speci men Type: BLOOD SPECIMENOrdering Facility: [facility] Address: [address] [place] [address] Performed By: #### 5 7021-8 ####[facility] LABORATORYCLIA [id number] [address] Eosinophils (Bld) [#/Vol] 0.15 10*3/uL Normal <0.46 [facility] Comment on above: Order Comment: Speci men Type: BLOOD SPECIMENOrdering Facility: [facility] Address: [address] [place] [address] Performed By: #### 5 7021-8 ####[facility]ATORYCLIA [id number] [address] Eosinophils/100 WBC (Bld) 2.0 % Normal [facility] Comment on above: Order Comment: Speci men Type: BLOOD SPECIMENOrdering Facility: [facility] Address: [address] [place] [address] Performed By: #### 5 7021-8 ####[facility]ATORYCLIA [id number] [address] Erythrocyte distribution width (RBC) [Ratio] 20.4 % High 11.5-15.0 [facility] Comment on above: Order Comment: Speci men Type: BLOOD SPECIMENOrdering Facility: [facility] Address: [address] [place] [address] Performed By: #### 5 7021-8 ####[facility] LABORATORYCLIA [id number] [address] OF [facility] Hematocrit (Bld) [Volume fraction] 24.8 % Low 39.0-51.0 [facility] Comment on above: Order Comment: Speci men Type: BLOOD SPECIMENOrdering Facility: [facility] Address: [address] [place] [address] Performed By: #### 5 7021-8 ####[facility] LABORATORYCLIA [id number] [address] STATES OF [facility] Hemoglobin (Bld) [Mass/Vol] 8.3 g/dL Low 13.0-17.0 [facility] Comment on above: Order Comment: Speci men Type: BLOOD SPECIMENOrdering Facility: [facility] Address: [address] [place] [address] Performed By: #### 5 7021-8 ####[facility]ORATORYCLIA [id number] [address] [place] IMMATURE GRAN % 0.5 % Normal [facility] Comment on above: Order Comment: Speci men Type: BLOOD SPECIMENOrdering Facility: [facility] Address: [address] [place] [address] Performed By: #### 5 7021-8 ####[facility]ORATORYCLIA [id number] [address] IMMATURE GRAN ABS 0.04 k/uL Normal <0.10 [facility] Comment on above: Order Comment: Speci men Type: BLOOD SPECIMENOrdering Facility: [facility] Address: [address] [place] [address] Performed By: #### 5 7021-8 ####[facility]ATORYCLIA [id number] [address] [place] Lymphocytes (Bld) [#/Vol] 1.35 10*3/uL Normal 1.00-4.00 [facility] Comment on above: Order Comment: Speci men Type: BLOOD SPECIMENOrdering Facility: [facility] Address: [address] [place] [address] Performed By: #### 5 7021-8 ####[facility]ORATORYCLIA [id number] [address] Lymphocytes/100 WBC (Bld) 18.1 % Normal [facility] Comment on above: Order Comment: Speci men Type: BLOOD SPECIMENOrdering Facility: [facility] Address: [address] [place] [address] Performed By: #### 5 7021-8 ####[facility]ORATORYCLIA [id number] [address] STATES [facility] MCH (RBC) [Entitic mass] 37.2 pg High 26.0-34.0 [facility] Comment on above: Order Comment: Speci men Type: BLOOD SPECIMENOrdering Facility: [facility] Address: [address] [place] [address] Performed By: #### 5 7021-8 ####[facility]ORATORYCLIA [id number] [address] [place] MCHC (RBC) [Mass/Vol] 33.5 g/dL Normal 30.5-36.0 [facility] Comment on above: Order Comment: Speci men Type: BLOOD SPECIMENOrdering Facility: [facility] Address: [address] [place] [address] Performed By: #### 5 7021-8 ####[facility]ORATORYCLIA [id number] [address] [place] MCV (RBC) [Entitic vol] 111.2 fL High 80.0-100.0 [facility] Comment on above: Order Comment: Speci men Type: BLOOD SPECIMENOrdering Facility: [facility] Address: [address] [place] [address] Performed By: #### 5 7021-8 ####[facility]ATORYCLIA [id number] [address] [place] Monocytes (Bld) [#/Vol] 1.13 10*3/uL High <0.87 [facility] Comment on above: Order Comment: Speci men Type: BLOOD SPECIMENOrdering Facility: [facility] Address: [address] [place] [address] Performed By: #### 5 7021-8 ####[facility]ORATORYCLIA [id number] [address] [place] Monocytes/100 WBC (Bld) 15.1 % Normal [facility] Comment on above: Order Comment: Speci men Type: BLOOD SPECIMENOrdering Facility: [facility] Address: [address] [place] [address] Performed By: #### 5 7021-8 ####[facility]ORATORYCLIA [id number] [address] [place] Neutrophils (Bld) [#/Vol] 4.73 10*3/uL Normal 1.45-7.50 [facility] Comment on above: Order Comment: Speci men Type: BLOOD SPECIMENOrdering Facility: [facility] Address: [address] [place] [address] Performed By: #### 5 7021-8 ####[facility]ORATORYCLIA [id number] [address] [place] Neutrophils/100 WBC (Bld) 63.4 % Normal [facility] Comment on above: Order Comment: Speci men Type: BLOOD SPECIMENOrdering Facility: [facility] Address: [address] [place] [address] Performed By: #### 5 7021-8 ####[facility]ATORYCLIA [id number] [place] [address] [place] Nucleated RBC (Bld) [#/Vol] 0.03 10*3/uL High <0.01 [facility] Comment on above: Order Comment: Speci men Type: BLOOD SPECIMENOrdering Facility: [facility] Address: [address] [place] [address] Performed By: #### 5 7021-8 ####[facility]ORATORYCLIA [id number] [address] Nucleated RBC/100 WBC (Bld) [Ratio] 0.4 /100 WBC Normal [facility] Comment on above: Order Comment: Speci men Type: BLOOD SPECIMENOrdering Facility: [facility] Address: [address] [place] [address] Performed By: #### 5 7021-8 ####[facility]ORATORYCLIA [id number] [address] [place] Platelet mean volume (Bld) [Entitic vol] 11.3 fL Normal 9.0-12.7 [facility] Comment on above: Order Comment: Speci men Type: BLOOD SPECIMENOrdering Facility: [facility] Address: [address] [place] [address] Performed By: #### 5 7021-8 ####[facility]ORATORYCLIA [id number] [address] [place] Platelets (Bld) [#/Vol] 218 10*3/uL Normal 150-400 [facility] Comment on above: Order Comment: Speci men Type: BLOOD SPECIMENOrdering Facility: [facility] Address: [address] [place], [place] [address] Performed By: #### 5 7021-8 ####[facility]ORATORYCLIA [id number] [address] [place] RBC (Bld) [#/Vol] 2.23 10*6/uL Low 4.20-6.00 [facility] Comment on above: Order Comment: Speci men Type: BLOOD SPECIMENOrdering Facility: [facility] Address: [address] [place], [place] [address] Performed By: #### 5 7021-8 ####[facility]ORATORYCLIA [id number] [address] [place] WBC (Bld) [#/Vol] 7.47 10*3/uL Normal 3.70-11.00 [facility] Comment on above: Order Comment: Speci men Type: BLOOD SPECIMENOrdering Facility: [facility] Address: [address] [place] [address] Performed By: #### 5 7021-8 ####[facility]ORATORYCLIA [id number] [address] CONSULT PROGon 07-06-2022 CONSULT PROG Normal [facility] Folate SerPl-mCncon 07-06-20 22 Folate [Mass/Vol] ng/mL Normal >4.7 [facility] Comment on above: Order Comment: Speci men Type: BLOOD SPECIMENOrdering Facility: [facility] Address: [address] [place] [address] Result Comment: A re sult of > 20 ng/mL is not necessarily indicative of a pathologic or treatable condition: it reflects a limitation of the test methodology.Assay reference range: 4.8 to 24.2 ng/mL. Suitable for detection of folate deficiency.Reference:Folate III (Folate III) [package insert V 1.0 Vincentian]. [employer] [employer], [place], [place]: September 2015. Performed By: #### 2 4362-6, 92950-1, 48 ####[facility] LABORATORYCLIA [id number] [address] Lipid 1996 panelon 2 Cholesterol [Mass/Vol] 75 mg/dL Normal <200 [facility] Comment on above: Order Comment: Speci men Type: BLOOD SPECIMENOrdering Facility: [facility] Address: [address] [place] [address] Result Comment: <200 mg/dL, Desirable 200-239 mg/dL, Borderline high>239 mg/dL, High Performed By: #### 2 4362-6, 68573-5, 2284-8 ####[facility]ORATORYCLIA [id number] [address] Cholesterol in HDL [Mass/Vol] 44 mg/dL Normal >39 [facility] Comment on above: Order Comment: Julijason gilbert Type: BLOOD SPECIMENOrdering Facility: [facility] Address: [address] [place] [address] Result Comment: 40-5 9 mg/dL, Acceptable>59 mg/dL, High: Negative risk factor for coronary heart disease<40 mg/dL, Low: Positive risk factor for coronary heart disease Performed By: #### 2 4362-6, 73940-4, 8 ####[facility]ORATORYCLIA [id number] [address] Cholesterol in LDL [Mass/Vol] 23 mg/dL Normal <100 [facility] Comment on above: Order Comment: Elfego vladimir Type: BLOOD SPECIMENOrdering Facility: [facility] Address: [address] [place] [address] Result Comment: <100 mg/dL, Optimal 100-129 mg/dL, Near optimal/above optimal 130-159 mg/dL, Borderline high 160-189 mg/dL, High>189 mg/dL, Very highSecondary prevention optimal LDL Cholesterol levels are recommended to be < 70 mg/dL Performed By: #### 2 4362-6, 56730-2, 8 ####[facility]ORATORYCLIA [id number] [address] Cholesterol in LDL/Cholesterol in HDL [Mass ratio] 0.52 {ratio} Normal <2.54 [facility] Comment on above: Order Comment: Julijason gilbert Type: BLOOD SPECIMENOrdering Facility: [facility] Address: [address] [place] [address] Result Comment: Refe rence:1. National Cholesterol Education Program ATP III Guideline At-A-Glance Quick Desk Reference: National Heart, Lung, and Blood [place]. National Institutes of Health. 2001: NIH Publication No. 01-3305.2. An International Atherosclerosis Society position paper: global recommendations for the management of dyslipidemia: executive summary, Atherosclerosis. 2014: 232(2):410-413. Performed By: #### 2 4362-6, 22643-0, 2284-06 ####[facility]ATORYCLIA [id number] [address] Cholesterol in VLDL [Mass/Vol] 8 mg/dL Normal <30 [facility] Comment on above: Order Comment: Speci men Type: BLOOD SPECIMENOrdering Facility: [facility] Address: [address] [place] [address] Performed By: #### 2 4362-6, 57360-5, 2284-06 ####[facility]ORATORYCLIA [id number] [address] Cholesterol non HDL [Mass/Vol] 31 mg/dL Normal <130 [facility] Comment on above: Order Comment: Speci men Type: BLOOD SPECIMENOrdering Facility: [facility] Address: [address] [place] [address] Result Comment: <130 mg/dL, Optimal 130-159 mg/dL, Near optimal/above optimal 160-189 mg/dL, Borderline high 190-219 mg/dL, High>219 mg/dL, Very highSecondary prevention optimal non HDL Cholesterol levels are recommended to be <100 mg/dL Performed By: #### 2 4362-6, 42473-2, 2284-06 ####[facility]ORATORYCLIA [id number] [address] Cholesterol.total/Chol esterol in HDL [Mass ratio] 1.70 {ratio} Normal <5.10 [facility] Comment on above: Order Comment: Speci men Type: BLOOD SPECIMENOrdering Facility: [facility] Address: [address] [address] Performed By: #### 2 4362-6, 04757-5, 2284-06 ####[facility] LABORATORYCLIA [id number] [address] OF [facility] FASTING TIME Not indicated Normal [facility] Comment on above: Order Comment: Speci men Type: BLOOD SPECIMENOrdering Facility: [facility] Address: [address] [place] [address] Performed By: #### 2 4362-6, 13021-4, 2284-06 ####[facility] LABORATORYCLIA [id number] [place], [place] [id number] [place] [address] [place] Triglyceride [Mass/Vol] 38 mg/dL Normal <150 [facility] Comment on above: Order Comment: Speci men Type: BLOOD SPECIMENOrdering Facility: [facility] Address: [address] [place] [address] Result Comment: <150 mg/dL, Normal 150-199 mg/dL, Borderline high 200-499 mg/dL, High>499 mg/dL, Very high Performed By: #### 2 4362-6, 15717-2, 2284-06 ####[facility]ORATORYCLIA [id number] [address] [place] Renal function 2000 panelon 07-06-2022 Albumin [Mass/Vol] 3.7 g/dL Low 3.9-4.9 [facility] Comment on above: Order Comment: Speci men Type: BLOOD SPECIMENOrdering Facility: [facility] Address: [address] [place] [address] Performed By: #### 2 4362-6, , 2284-06 ####[facility] LABORATORYCLIA [id number] [place] [address] [place] Anion gap [Moles/Vol] 8 mmol/L Low 9-18 [facility] Comment on above: Order Comment: Speci men Type: BLOOD SPECIMENOrdering Facility: [facility] Address: [address] [place] [address] Performed By: #### 2 4362-6, , 2284-06 ####[facility] LABORATORYCLIA [id number] [address] [place] Calcium [Mass/Vol] 8.9 mg/dL Normal 8.5-10.2 [facility] Comment on above: Order Comment: Speci men Type: BLOOD SPECIMENOrdering Facility: [facility] Address: [address] [place], [place] [address] Performed By: #### 2 4362-6, 96666-3, 2284-06 ####[facility] LABORATORYCLIA [id number] [place] [address] [place] Chloride [Moles/Vol] 99 mmol/L Normal 97-105 [facility] Comment on above: Order Comment: Speci men Type: BLOOD SPECIMENOrdering Facility: [facility] Address: [address] [place] [address] Performed By: #### 2 4362-6, 60450-6, 2284-06 ####[facility] LABORATORYCLIA [id number] [place] [address] [place] CO2 [Moles/Vol] 33 mmol/L High 22-30 [facility] Comment on above: Order Comment: Speci men Type: BLOOD SPECIMENOrdering Facility: [facility] Address: [address] [place] [address] Performed By: #### 2 4362-6, 10471-9, 2284-06 ####[facility] LABORATORYCLIA [id number] [address] [place] Creatinine [Mass/Vol] 1.11 mg/dL Normal 0.73-1.22 [facility] Comment on above: Order Comment: Speci men Type: BLOOD SPECIMENOrdering Facility: [facility] Address: [address] [place] [address] Performed By: #### 2 4362-6, 16509-0, 2284-06 ####[facility] LABORATORYCLIA [id number] [address] OF [facility] ESTIMATED GLOMERULAR FILTRATION RATE 65 mL/min/1.73m??? Normal >=60 [facility] Comment on above: Order Comment: Speci men Type: BLOOD SPECIMENOrdering Facility: [facility] Address: [address] [place] [address] Result Comment: Concepción mated Glomerular Filtration Rate [...] actual GFR. Performed By: #### 2 4362-6, 84326-7, 8 ####[facility] [id number] [place] [address] [place] [facility] Glucose [Mass/Vol] 98 mg/dL Normal 74-99 [facility] Comment on above: Order Comment: Elfego gilbert Type: BLOOD SPECIMENOrdering Facility: [facility] Address: [address] [place], [place] [address] Result Comment: The [place] Diabetes Association (ADA) provides guidance for cutoff [...] Standards of Medical Care in Diabetes 2016, [place] [employer]. Diabetes Care. 2016.39(Suppl 1). Performed By: #### 2 4362-6, 51865-7, 2284-06 ####[facility] LABORATORYIA [id number] [place] [address] [place] Phosphate [Mass/Vol] 4.0 mg/dL Normal 2.7-4.8 [facility] Comment on above: Order Comment: Elfego gilbert Type: BLOOD SPECIMENOrdering Facility: [facility] Address: [address] [id number] Performed By: #### 2 4362-6, 38143-4, 2284-06 ####[facility] LABORATORYCLIA [id number] [place] [address] [place] Potassium [Moles/Vol] 4.0 mmol/L Normal 3.7-5.1 [facility] Comment on above: Order Comment: Speci men Type: BLOOD SPECIMENOrdering Facility: [facility] Address: [address] [place] [address] Performed By: #### 2 4362-6, 05003-3, 8 ####[facility] LABORATORYCLIA [id number] [address] STATES OF [facility] Sodium [Moles/Vol] 140 mmol/L Normal 136-144 [facility] Comment on above: Order Comment: Speci men Type: BLOOD SPECIMENOrdering Facility: [facility] Address: [address] [place] [address] Performed By: #### 2 4362-6, 29397-4, 8 ####[facility] LABORATORYCLIA [id number] [address] STATES [facility] Urea nitrogen [Mass/Vol] 28 mg/dL High 9-24 [facility] Comment on above: Order Comment: Speci men Type: BLOOD SPECIMENOrdering Facility: [facility] Address: [address] [place] [address] Performed By: #### 2 4362-6, 74575-6, 2284-06 ####[facility] LABORATORYCLIA [id number] [address] STATES OF [facility] CBC W Auto Differential pane l (Bld)on 07-05-2022 Basophils (Bld) [#/Vol] 0.04 10*3/uL Normal <0.11 [facility] Comment on above: Order Comment: Speci men Type: BLOOD SPECIMENOrdering Facility: [facility] Address: [address] [place] [address] Performed By: #### 1 4196-0, 82138-8 ####[facility] LABORATORYCLIA [id number] [address] [place] Basophils/100 WBC (Bld) 0.5 % Normal [facility] Comment on above: Order Comment: Speci men Type: BLOOD SPECIMENOrdering Facility: [facility] Address: [address] [place] [address] Performed By: #### 1 4196-0, 81012-0 ####[facility] LABORATORYCLIA [id number] [address] Differential cell count method Nom (Bld) Auto Normal [facility] Comment on above: Order Comment: Speci men Type: BLOOD SPECIMENOrdering Facility: [facility] Address: [address] [place] [address] Performed By: #### 1 4196-0, 85421-7 ####[facility] LABORATORYCLIA [id number] [address] STATES OF [facility] Eosinophils (Bld) [#/Vol] 0.12 10*3/uL Normal <0.46 [facility] Comment on above: Order Comment: Speci men Type: BLOOD SPECIMENOrdering Facility: [facility] Address: [address] [place] [address] Performed By: #### 1 4196-0, 93546-0 ####[facility] LABORATORYCLIA [id number] [address] Eosinophils/100 WBC (Bld) 1.5 % Normal [facility] Comment on above: Order Comment: Speci men Type: BLOOD SPECIMENOrdering Facility: [facility] Address: [address] [place] [address] Performed By: #### 1 4196-0, 52696-8 ####[facility] LABORATORYCLIA [id number] [address] Erythrocyte distribution width (RBC) [Ratio] 20.3 % High 11.5-15.0 [facility] Comment on above: Order Comment: Speci men Type: BLOOD SPECIMENOrdering Facility: [facility] Address: [address] [place] [address] Performed By: #### 1 4196-0, 58908-5 ####[facility]ORATORYCLIA [id number] [address] OF [facility] Hematocrit (Bld) [Volume fraction] 25.5 % Low 39.0-51.0 [facility] Comment on above: Order Comment: Speci men Type: BLOOD SPECIMENOrdering Facility: [facility] Address: [address] [place] [address] Performed By: #### 1 4196-0, 31386-5 ####[facility] LABORATORYCLIA [id number] [address] Hemoglobin (Bld) [Mass/Vol] 8.4 g/dL Low 13.0-17.0 [facility] Comment on above: Order Comment: Speci men Type: BLOOD SPECIMENOrdering Facility: [facility] Address: [address] [place] [address] Performed By: #### 1 4196-0, 42693-1 ####[facility] LABORATORYCLIA [id number] [address] IMMATURE GRAN % 0.4 % Normal [facility] Comment on above: Order Comment: Speci men Type: BLOOD SPECIMENOrdering Facility: [facility] Address: [address] [place] [address] Performed By: #### 1 4196-0, 90882-2 ####[facility] LABORATORYCLIA [id number] [address] IMMATURE GRAN ABS 0.03 k/uL Normal <0.10 [facility] Comment on above: Order Comment: Speci men Type: BLOOD SPECIMENOrdering Facility: [facility] Address: [address] [place] [address] Performed By: #### 1 4196-0, 53462-9 ####[facility] LABORATORYCLIA [id number] [address] Lymphocytes (Bld) [#/Vol] 1.10 10*3/uL Normal 1.00-4.00 [facility] Comment on above: Order Comment: Speci men Type: BLOOD SPECIMENOrdering Facility: [facility] Address: [address] [place] [address] Performed By: #### 1 4196-0, 40375-1 ####[facility] LABORATORYCLIA [id number] [address] Lymphocytes/100 WBC (Bld) 13.6 % Normal [facility] Comment on above: Order Comment: Speci men Type: BLOOD SPECIMENOrdering Facility: [facility] Address: [address] [place] [address] Performed By: #### 1 4196-0, 41602-8 ####[facility] LABORATORYCLIA [id number] [address] STATES OF [facility] MCH (RBC) [Entitic mass] 37.2 pg High 26.0-34.0 [facility] Comment on above: Order Comment: Speci men Type: BLOOD SPECIMENOrdering Facility: [facility] Address: [address] [place] [address] Performed By: #### 1 4196-0, 79710-2 ####[facility] LABORATORYCLIA [id number] [address] STATES OF [facility] MCHC (RBC) [Mass/Vol] 32.9 g/dL Normal 30.5-36.0 [facility] Comment on above: Order Comment: Speci men Type: BLOOD SPECIMENOrdering Facility: [facility] Address: [address] [place] [address] Performed By: #### 1 4196-0, 69401-4 ####[facility] LABORATORYCLIA [id number] [address] [place] MCV (RBC) [Entitic vol] 112.8 fL High 80.0-100.0 [facility] Comment on above: Order Comment: Speci men Type: BLOOD SPECIMENOrdering Facility: [facility] Address: [address] [place] [address] Performed By: #### 1 4196-0, 91669-0 ####[facility] LABORATORYCLIA [id number] [place] [address] [place] Monocytes (Bld) [#/Vol] 1.12 10*3/uL High <0.87 [facility] Comment on above: Order Comment: Speci men Type: BLOOD SPECIMENOrdering Facility: [facility] Address: [address] [place] [address] Performed By: #### 1 4196-0, 63083-4 ####[facility] LABORATORYCLIA [id number] [address] [place] Monocytes/100 WBC (Bld) 13.9 % Normal [facility] Comment on above: Order Comment: Speci men Type: BLOOD SPECIMENOrdering Facility: [facility] Address: [address] [place] [address] Performed By: #### 1 4196-0, 95127-3 ####[facility] LABORATORYCLIA [id number] [place] [address] [place] Neutrophils (Bld) [#/Vol] 5.66 10*3/uL Normal 1.45-7.50 [facility] Comment on above: Order Comment: Speci men Type: BLOOD SPECIMENOrdering Facility: [facility] Address: [address] [place] [address] Performed By: #### 1 4196-0, 94241-9 ####[facility] LABORATORYCLIA [id number] [address] [place] Neutrophils/100 WBC (Bld) 70.1 % Normal [facility] Comment on above: Order Comment: Speci men Type: BLOOD SPECIMENOrdering Facility: [facility] Address: [address] [place] [address] Performed By: #### 1 4196-0, 18349-9 ####[facility] LABORATORYCLIA [id number] [place] [address] [place] Nucleated RBC (Bld) [#/Vol] 0.03 10*3/uL High <0.01 [facility] Comment on above: Order Comment: Speci men Type: BLOOD SPECIMENOrdering Facility: [facility] Address: [address] [address] Performed By: #### 1 4196-0, 59781-8 ####[facility] LABORATORYCLIA [id number] [address] OF [facility] Nucleated RBC/100 WBC (Bld) [Ratio] 0.4 /100 WBC Normal [facility] Comment on above: Order Comment: Speci men Type: BLOOD SPECIMENOrdering Facility: [facility] Address: [address] [place] [address] Performed By: #### 1 4196-0, 19253-2 ####[facility] LABORATORYCLIA [id number] [address] [place] Platelet mean volume (Bld) [Entitic vol] 11.5 fL Normal 9.0-12.7 [facility] Comment on above: Order Comment: Speci men Type: BLOOD SPECIMENOrdering Facility: [facility] Address: [address] Performed By: #### 1 4196-0, 89388-2 ####[facility] LABORATORYCLIA [id number] [address] [place] Platelets (Bld) [#/Vol] 236 10*3/uL Normal 150-400 [facility] Comment on above: Order Comment: Speci men Type: BLOOD SPECIMENOrdering Facility: [facility] Address: [address] [place], [place] [address] Performed By: #### 1 4196-0, 28173-9 ####[facility] LABORATORYCLIA [id number] [address] [place] RBC (Bld) [#/Vol] 2.26 10*6/uL Low 4.20-6.00 [facility] Comment on above: Order Comment: Speci men Type: BLOOD SPECIMENOrdering Facility: [facility] Address: [address] [place], [place] [address] Performed By: #### 1 4196-0, 86615-3 ####[facility] LABORATORYCLIA [id number] [address] STATES OF [facility] WBC (Bld) [#/Vol] 8.07 10*3/uL Normal 3.70-11.00 [facility] Comment on above: Order Comment: Speci men Type: BLOOD SPECIMENOrdering Facility: [facility] Address: [address] [place] [address] Performed By: #### 1 4196-0, 21045-9 ####[facility] LABORATORYCLIA [id number] [address] [place] CONSULTon 07-05-2022 CONSULT Normal [facility] Comprehensive metabolic 2000 panelon 07-05-2022 Albumin [Mass/Vol] 3.7 g/dL Low 3.9-4.9 [facility] Comment on above: Order Comment: Speci men Type: BLOOD SPECIMENOrdering Facility: [facility] Address: [address] [place] [address] Performed By: #### 2 4323-8, ####[facility] LABORATORYCLIA [id number] [address] [place] ALP [Catalytic activity/Vol] 83 U/L Normal 38-113 [facility] Comment on above: Order Comment: Speci men Type: BLOOD SPECIMENOrdering Facility: [facility] Address: [address] [place] [address] Performed By: #### 2 4323-8, ####[facility] LABORATORYCLIA [id number] [address] [place] ALT With P-5'-P [Catalytic activity/Vol] 21 U/L Normal 10-54 [facility] Comment on above: Order Comment: Speci men Type: BLOOD SPECIMENOrdering Facility: [facility] Address: [address] [place] [address] Performed By: #### 2 4323-8, ####[facility] LABORATORYCLIA [id number] [place] [address] [place] Anion gap [Moles/Vol] 8 mmol/L Low 9-18 [facility] Comment on above: Order Comment: Speci men Type: BLOOD SPECIMENOrdering Facility: [facility] Address: [address] [place] [address] Performed By: #### 2 4323-8, ####[facility] LABORATORYCLIA [id number] [place] [address] [place] AST With P-5'-P [Catalytic activity/Vol] 24 U/L Normal 14-40 [facility] Comment on above: Order Comment: Speci men Type: BLOOD SPECIMENOrdering Facility: [facility] Address: [address] [place] [address] Performed By: #### 2 4328, ####[facility] LABORATORYCLIA [id number] [place] [address] [place] Bilirubin [Mass/Vol] 1.4 mg/dL High 0.2-1.3 [facility] Comment on above: Order Comment: Speci men Type: BLOOD SPECIMENOrdering Facility: [facility] Address: [address] [place] [address] Performed By: #### 2 4323-8, ####[facility] LABORATORYCLIA [id number] [place] [address] [place] Calcium [Mass/Vol] 8.5 mg/dL Normal 8.5-10.2 [facility] Comment on above: Order Comment: Speci men Type: BLOOD SPECIMENOrdering Facility: [facility] Address: [address] [place] [address] Performed By: #### 2 4323-8, ####[facility] LABORATORYCLIA [id number] [place] [address] [place] Chloride [Moles/Vol] 101 mmol/L Normal 97-105 [facility] Comment on above: Order Comment: Speci men Type: BLOOD SPECIMENOrdering Facility: [facility] Address: [address] [place] [address] Performed By: #### 2 43238, ####[facility] LABORATORYCLIA [id number] [address] [place] CO2 [Moles/Vol] 31 mmol/L High 22-30 [facility] Comment on above: Order Comment: Speci men Type: BLOOD SPECIMENOrdering Facility: [facility] Address: [address] [place] [address] Performed By: #### 2 4328, ####[facility] LABORATORYCLIA [id number] [address] STATES OF [facility] Creatinine [Mass/Vol] 1.06 mg/dL Normal 0.73-1.22 [facility] Comment on above: Order Comment: Speci men Type: BLOOD SPECIMENOrdering Facility: [facility] Address: [address] [place] [address] Performed By: #### 2 4328, ####[facility] [id number] [address] ESTIMATED GLOMERULAR FILTRATION RATE 68 mL/min/1.73m??? Normal >=60 [facility] Comment on above: Order Comment: Speci men Type: BLOOD SPECIMENOrdering Facility: [facility] Address: [address] [place] [address] Result Comment: Concepción mated Glomerular Filtration Rate [...] actual GFR. Performed By: #### 2 4323-8, ####[facility] LABORATORYCLIA [id number] [address] [place] Glucose [Mass/Vol] 97 mg/dL Normal 74-99 [facility] Comment on above: Order Comment: Elfego vladimir Type: BLOOD SPECIMENOrdering Facility: [facility] Address: [address] [place] [address] Result Comment: The [place] Diabetes Association (ADA) provides guidance for cutoff [...] Standards of Medical Care in Diabetes 2016, [place] [employer]. Diabetes Care. 2016.39(Suppl 1). Performed By: #### 2 4323-8, ####[facility] LABORATORYCLIA [id number] [place] [address] [place] Potassium [Moles/Vol] 3.9 mmol/L Normal 3.7-5.1 [facility] Comment on above: Order Comment: Elfego gilbert Type: BLOOD SPECIMENOrdering Facility: [facility] Address: [address] [place] [address] Performed By: #### 2 432-8, ####[facility] LABORATORYCLIA [id number] [place] [address] [place] Protein [Mass/Vol] 5.6 g/dL Low 6.3-8.0 [facility] Comment on above: Order Comment: Elfego vladimir Type: BLOOD SPECIMENOrdering Facility: [facility] Address: [address] [place] [address] Performed By: #### 2 43201-14, ####[facility] LABORATORYCLIA [id number] [place] [address] [place] Sodium [Moles/Vol] 140 mmol/L Normal 136-144 [facility] Comment on above: Order Comment: Speci men Type: BLOOD SPECIMENOrdering Facility: [facility] Address: [address] [place] [address] Performed By: #### 2 4323-8, 69687-9 ####[facility] LABORATORYCLIA [id number] [address] Urea nitrogen [Mass/Vol] 25 mg/dL High 9-24 [facility] Comment on above: Order Comment: Speci men Type: BLOOD SPECIMENOrdering Facility: [facility] Address: [address] [place] [address] Performed By: #### 2 4323-8, ####[facility] LABORATORYCLIA [id number] [address] HISTORY PHYSICALon HISTORY PHYSICAL Normal [facility] Magnesium SerPl-mCncon 07-05 Magnesium [Mass/Vol] 1.9 mg/dL Normal 1.7-2.3 [facility] Comment on above: Order Comment: Speci men Type: BLOOD SPECIMENOrdering Facility: [facility] Address: [address] [place] [address] Performed By: #### 2 4323-8, ####[facility] LABORATORYCLIA [id number] [address] OF [facility] Retics #on 07-05-2022 Reticulocytes (Bld) [#/Vol] 0.21264 10*3/uL Normal 0.018-0.10 0 [facility] Comment on above: Order Comment: Speci men Type: BLOOD SPECIMENOrdering Facility: [facility] Address: [address] [place] [address] Performed By: #### 1 4196-0, 49740-2 ####[facility] LABORATORYCLIA [id number] [address] Reticulocytes (Bld) [#/Vol]o n 07-05-2022 Reticulocytes/100 RBC (Bld) 1.8 % Normal 0.4-2.0 [facility] Comment on above: Order Comment: Speci men Type: BLOOD SPECIMENOrdering Facility: [facility] Address: [address] [place] [address] Performed By: #### 1 4196-0, 04982-0 ####[facility] LABORATORYCLIA [id number] [place] [address] [place] US DOPPLER LTDon 07-05-2022 US DOPPLER LTD Normal [facility] US SCROTUM AND CONTENTSon US SCROTUM AND CONTENTS Normal [facility] Urinalysis complete panel (U )on 07-05-2022 Bilirubin Ql (U) Negative Normal Negative [facility] Comment on above: Order Comment: Speci men Type: URINE SPECIMENOrdering Facility: [facility] Address: [address] [place] [address] Performed By: #### 2 4356-8 ####[facility] LABORATORYCLIA [id number] [address] Clarity (Unsp spec) Clear Normal Clear [facility] Comment on above: Order Comment: Speci men Type: URINE SPECIMENOrdering Facility: [facility] Address: [address] [place] [address] Performed By: #### 2 4356-8 ####[facility] LABORATORYCLIA [id number] [address] Color (U) Colorless Normal yellow [facility] Comment on above: Order Comment: Speci men Type: URINE SPECIMENOrdering Facility: [facility] Address: [address] [place] [address] Performed By: #### 2 4356-8 ####[facility] LABORATORYCLIA [id number] [address] [place] Glucose Test strip (U) [Mass/Vol] Negative Normal Negative [facility] Comment on above: Order Comment: Speci men Type: URINE SPECIMENOrdering Facility: [facility] Address: [address] [place] [address] Performed By: #### 2 4356-8 ####[facility]ORATORYCLIA [id number] [address] Hemoglobin Ql (U) Negative Normal Negative [facility] Comment on above: Order Comment: Speci men Type: URINE SPECIMENOrdering Facility: [facility] Address: [address] [place] [address] Performed By: #### 2 4356-8 ####[facility]ORATORYCLIA [id number] [address] Hyaline casts (Urine sed) [#/Area] 1-3 /LPF Abnormal 0 /LPF [facility] Comment on above: Order Comment: Speci men Type: URINE SPECIMENOrdering Facility: [facility] Address: [address] [place] [address] Performed By: #### 2 4356-8 ####[facility] LABORATORYCLIA [id number] [address] Ketones Ql (U) Negative Normal Negative [facility] Comment on above: Order Comment: Speci men Type: URINE SPECIMENOrdering Facility: [facility] Address: [address] [place] [address] Performed By: #### 2 4356-8 ####[facility] LABORATORYCLIA [id number] [address] Leukocyte esterase Test strip Ql (U) Negative Normal Negative [facility] Comment on above: Order Comment: Speci men Type: URINE SPECIMENOrdering Facility: [facility] Address: [address] [place] [address] Performed By: #### 2 4356-8 ####[facility]ORATORYCLIA [id number] [address] [place] Nitrite Ql (U) Negative Normal Negative [facility] Comment on above: Order Comment: Speci men Type: URINE SPECIMENOrdering Facility: [facility] Address: [address] [place] [address] Performed By: #### 2 4356-8 ####[facility] LABORATORYCLIA [id number] [address] [place] pH (U) 5.0 [pH] Normal 5.0-8.0 [facility] Comment on above: Order Comment: Speci men Type: URINE SPECIMENOrdering Facility: [facility] Address: [address] [place] [address] Performed By: #### 2 4356-8 ####[facility] LABORATORYCLIA [id number] [address] [place] Protein (U) [Mass/Vol] Negative Normal Negative [facility] Comment on above: Order Comment: Speci men Type: URINE SPECIMENOrdering Facility: [facility] Address: [address] [place] [address] Performed By: #### 2 4356-8 ####[facility] LABORATORYCLIA [id number] [address] [place] RBC LM.HPF (Urine sed) [#/Area] 0-3 /HPF Normal 0-3 /HPF [facility] Comment on above: Order Comment: Speci men Type: URINE SPECIMENOrdering Facility: [facility] Address: [address] [place] [address] Performed By: #### 2 4356-8 ####[facility] LABORATORYCLIA [id number] [address] [place] Specific gravity (U) [Rel density] 1.008 Normal 1.005-1.03 0 [facility] Comment on above: Order Comment: Speci men Type: URINE SPECIMENOrdering Facility: [facility] Address: [address] [place] [address] Performed By: #### 2 4356-8 ####[facility] LABORATORYCLIA [id number] [address] Urobilinogen Ql (U) Normal Normal Negative [facility] Comment on above: Order Comment: Speci men Type: URINE SPECIMENOrdering Facility: [facility] Address: [address] Performed By: #### 2 4356-8 ####[facility] LABORATORYCLIA [id number] [address] WBC LM.HPF (Urine sed) [#/Area] 0-5 /HPF Normal 0-5 /HPF [facility] Comment on above: Order Comment: Speci men Type: URINE SPECIMENOrdering Facility: [facility] Address: [address] [place] [address] Performed By: #### 2 4356-8 ####[facility] LABORATORYCLIA [id number] [address] OF [facility] Basic metabolic 2000 panelon 07-04-2022 Anion gap [Moles/Vol] 3 mmol/L Low 8-16 [facility] Comment on above: Order Comment: Speci men Type: BLOOD SPECIMENOrdering Facility: [facility] Address: [address] [place] [address] Performed By: #### 2 4321-2 ####[facility] LABCLIA [id number] [place] [address] [place] Calcium [Mass/Vol] 8.6 mg/dL Normal 8.5-10.1 [facility] Comment on above: Order Comment: Speci men Type: BLOOD SPECIMENOrdering Facility: [facility] Address: [address] [place] [address] Performed By: #### 2 4321-2 ####[facility] LABCLIA [id number] [place] [address] [place] OF [facility] Chloride [Moles/Vol] 104 mmol/L Normal 98-107 [facility] Comment on above: Order Comment: Speci men Type: BLOOD SPECIMENOrdering Facility: [facility] Address: [address] [place] [address] Performed By: #### 2 4321-2 ####[facility] LABCLIA [id number] [place] [address] [place] CO2 [Moles/Vol] 32 mmol/L Normal 21-32 [facility] Comment on above: Order Comment: Speci men Type: BLOOD SPECIMENOrdering Facility: [facility] Address: [address] [place] [address] Performed By: #### 2 4321-2 ####[facility] LABCLIA [id number] [place] [address] [place] Creatinine [Mass/Vol] 1.00 mg/dL Normal 0.67-1.17 [facility] Comment on above: Order Comment: Speci men Type: BLOOD SPECIMENOrdering Facility: [facility] Address: [address] [place] [address] Performed By: #### 2 4321-2 ####[facility] LABCLIA [id number] [address] STATES OF [facility] ESTIMATED GLOMERULAR FILTRATION RATE 73 mL/min/1.73m??? Normal >=60 [facility] Comment on above: Order Comment: Speci men Type: BLOOD SPECIMENOrdering Facility: [facility] Address: [address] [place] [address] Result Comment: Concepción mated Glomerular Filtration Rate [...] actual GFR. Performed By: #### 2 4321-2 ####[facility] LABCLIA [id number] [place] [address] [place] Glucose [Mass/Vol] 112 mg/dL High 70-99 [facility] Comment on above: Order Comment: Speci men Type: BLOOD SPECIMENOrdering Facility: [facility] Address: [address] [place] [address] Result Comment: The [place] Diabetes Association (ADA) provides guidance for cutoff [...] Standards of Medical Care in Diabetes 2016, [place] [employer] Association. Diabetes Care. 2016.39(Suppl 1). Performed By: #### 2 4321-2 ####[facility] LABCLIA [id number] [place] [address] [place] Potassium [Moles/Vol] 4.7 mmol/L Normal 3.5-5.1 [facility] Comment on above: Order Comment: Speci men Type: BLOOD SPECIMENOrdering Facility: [facility] Address: [address] [place] [address] Performed By: #### 2 4321-2 ####[facility] VictivIA [id number] [place] [address] [place] Sodium [Moles/Vol] 139 mmol/L Normal 136-145 [facility] Comment on above: Order Comment: Speci men Type: BLOOD SPECIMENOrdering Facility: [facility] Address: [address] [place] [address] Performed By: #### 2 4321-2 ####[facility] LABCLIA [id number] [place] [address] [place] Urea nitrogen [Mass/Vol] 26 mg/dL High 7-18 [facility] Comment on above: Order Comment: Speci men Type: BLOOD SPECIMENOrdering Facility: [facility] Address: [address] [place] [address] Performed By: #### 2 4321-2 ####[facility] LABCLIA [id number] [place] [address] [place] CBC W Auto Differential pane l (Bld)on 07-04-2022 Basophils (Bld) [#/Vol] 0.12 10*3/uL High <0.11 [facility] Comment on above: Order Comment: Speci men Type: BLOOD SPECIMENOrdering Facility: [facility] Address: [address] [place] [address] Performed By: #### 5 7021-8 ####[facility] LABCLIA [id number] [place] [address] [place] Basophils/100 WBC (Bld) 1.5 % Normal [facility] Comment on above: Order Comment: Speci men Type: BLOOD SPECIMENOrdering Facility: [facility] Address: [address] [place] [address] Performed By: #### 5 7021-8 ####[facility] LABCLIA [id number] [address] OF [place] Differential cell count method Nom (Bld) Auto Normal [facility] Comment on above: Order Comment: Speci men Type: BLOOD SPECIMENOrdering Facility: [facility] Address: [address] [place] [address] Performed By: #### 5 7021-8 ####[facility] LABCLIA [id number] [place] [address] [place] Eosinophils (Bld) [#/Vol] 0.09 10*3/uL Normal <0.46 [facility] Comment on above: Order Comment: Speci men Type: BLOOD SPECIMENOrdering Facility: [facility] Address: [address] [place] [address] Performed By: #### 5 7021-8 ####[facility] LABCLIA [id number] [place] [address] [place] Eosinophils/100 WBC (Bld) 1.1 % Normal [facility] Comment on above: Order Comment: Speci men Type: BLOOD SPECIMENOrdering Facility: [facility] Address: [address] [place] [address] Performed By: #### 5 7021-8 ####[facility] LABCLIA [id number] [address] STATES OF [place] Erythrocyte distribution width (RBC) [Ratio] 19.6 % High 11.5-15.0 [facility] Comment on above: Order Comment: Speci men Type: BLOOD SPECIMENOrdering Facility: [facility] Address: [address] [place] [address] Performed By: #### 5 7021-8 ####[facility] LABCLIA [id number] [place] [address] [place] Hematocrit (Bld) [Volume fraction] 26.6 % Low 39.0-51.0 [facility] Comment on above: Order Comment: Speci men Type: BLOOD SPECIMENOrdering Facility: [facility] Address: [address] [place] [address] Performed By: #### 5 7021-8 ####[facility] LABCLIA [id number] [place] [address] [place] Hemoglobin (Bld) [Mass/Vol] 8.8 g/dL Low 13.0-17.0 [facility] Comment on above: Order Comment: Speci men Type: BLOOD SPECIMENOrdering Facility: [facility] Address: [address] [place] [address] Performed By: #### 5 7021-8 ####[place] [facility] LABCLIA [id number] [place] [address] [place] Lymphocytes (Bld) [#/Vol] 1.19 10*3/uL Normal 1.00-4.00 [facility] Comment on above: Order Comment: Speci men Type: BLOOD SPECIMENOrdering Facility: [facility] Address: [address] [place] [address] Performed By: #### 5 7021-8 ####[facility] LABCLIA [id number] [place] [address] [place] [facility] Lymphocytes/100 WBC (Bld) 14.7 % Normal [facility] Comment on above: Order Comment: Speci men Type: BLOOD SPECIMENOrdering Facility: [facility] Address: [address] [place] [address] Performed By: #### 5 7021-8 ####[facility] LABCLIA [id number] [place] [address] [place] MCH (RBC) [Entitic mass] 37.0 pg High 26.0-34.0 [facility] Comment on above: Order Comment: Speci men Type: BLOOD SPECIMENOrdering Facility: [facility] Address: [address] [place] [address] Performed By: #### 5 7021-8 ####[facility] LABIA [id number] [place] [address] [place] MCHC (RBC) [Mass/Vol] 33.1 g/dL Normal 30.5-36.0 [facility] Comment on above: Order Comment: Speci men Type: BLOOD SPECIMENOrdering Facility: [facility] Address: [address] [place] [address] Performed By: #### 5 7021-8 ####[facility] LABCLIA [id number] [place] [address] [place] MCV (RBC) [Entitic vol] 111.8 fL High 80.0-100.0 [facility] Comment on above: Order Comment: Speci men Type: BLOOD SPECIMENOrdering Facility: [facility] Address: [address] [place] [address] Performed By: #### 5 7021-8 ####[facility] LABCLIA [id number] [place] [address] [place] Monocytes (Bld) [#/Vol] 1.03 10*3/uL High <0.87 [facility] Comment on above: Order Comment: Speci men Type: BLOOD SPECIMENOrdering Facility: [facility] Address: [address] [place] [address] Performed By: #### 5 7021-8 ####[facility] LABCLIA [id number] [place] [address] [place] Monocytes/100 WBC (Bld) 12.7 % Normal [facility] Comment on above: Order Comment: Speci men Type: BLOOD SPECIMENOrdering Facility: [facility] Address: [address] [place] [address] Performed By: #### 5 7021-8 ####[facility] LABCLIA [id number] [place] [address] [place] Neutrophils (Bld) [#/Vol] 5.69 10*3/uL Normal 1.45-7.50 [facility] Comment on above: Order Comment: Speci men Type: BLOOD SPECIMENOrdering Facility: [facility] Address: [address] [place] [address] Performed By: #### 5 7021-8 ####[facility] LABCLIA [id number] [place] [address] [place] Neutrophils/100 WBC (Bld) 70.0 % Normal [facility] Comment on above: Order Comment: Speci men Type: BLOOD SPECIMENOrdering Facility: [facility] Address: [address] [place] [address] Performed By: #### 5 7021-8 ####[facility] LABCLIA [id number] [place] [address] [place] Platelet mean volume (Bld) [Entitic vol] 10.8 fL Normal 9.0-12.7 [facility] Comment on above: Order Comment: Speci men Type: BLOOD SPECIMENOrdering Facility: [facility] Address: [address] [place], [place] [address] Performed By: #### 5 7021-8 ####[facility] LABCLIA [id number] [place] [address] [facility] Platelets (Bld) [#/Vol] 239 10*3/uL Normal 150-400 [facility] Comment on above: Order Comment: Speci men Type: BLOOD SPECIMENOrdering Facility: [facility] Address: [address] [place] [address] Performed By: #### 5 7021-8 ####[facility] LABCLIA [id number] [place] [address] [facility] RBC (Bld) [#/Vol] 2.38 10*6/uL Low 4.20-6.00 [facility] Comment on above: Order Comment: Speci men Type: BLOOD SPECIMENOrdering Facility: [facility] Address: [address] [place] [address] Performed By: #### 5 7021-8 ####[facility] LABCLIA [id number] [place] [address] [facility] WBC (Bld) [#/Vol] 8.12 10*3/uL Normal 3.70-11.00 [facility] Comment on above: Order Comment: Speci men Type: BLOOD SPECIMENOrdering Facility: [facility] Address: [address] [place] [address] Performed By: #### 5 7021-8 ####[facility] LABCLIA [id number] [place] [address] [facility] ED NOTEon 07-04-2022 ED NOTE HNO ID: [id number] Author: Rosa Carter RN Service: Emergency Medicine Author Type: Registered Nurse Type: ED Notes Filed: 07/04/2022 6:27 PM Note Text: Report given to [facility] ED NOTE HNO ID: [id number] Author: Rosa Carter RN Service: Emergency Medicine Author Type: Registered Nurse Type: ED Notes Filed: 07/04/2022 5:57 PM Note Text: Report given to zak jiménez. Normal [facility] ED NOTE HNO ID: [id number] Author: Ju Huynh RN Service: Emergency Medicine Author Type: Registered Nurse Type: ED Notes Filed: 07/04/2022 2:11 PM Note Text: Bilateral leg swelling x1 month, states swelling has moved to scrotum. States SOB. Normal [facility] ED PROV NOTEon 07-04-2022 ED PROV NOTE Normal [facility] ED PROV NOTE Normal [facility] NT-proBNP SerPl-mCncon 07-04 Natriuretic peptide.B prohormone N-Terminal [Mass/Vol] 07443 pg/mL High <450 [facility] Comment on above: Order Comment: Speci men Type: BLOOD SPECIMENOrdering Facility: [facility] Address: [address] [place] [address] Performed By: #### T JEAN CARLOS, 62792-0 ####[place] [facility] LABCLIA [id number] [place] [address] [place] SARS-CoV-2 RNA Resp Ql OLIVER+p robeon 07-04-2022 SARS-CoV-2 (COVID-19) RNA OLIVER+probe Ql (Resp) SARS-CoV-2 (Agent of COVID-19) Not Detected by RT-PCR or equivalent method. Normal Not Detected [facility] Comment on above: Order Comment: Speci men Type: SWAB OF INTERNAL NOSEOrdering Facility: [facility] Address: [address] [place] [address] Result Comment: This test has been authorized by FDA under an Emergency Use Authorization (EUA). Performed By: #### 9 4500-6 ####[employer] LABCLIA [id number] [place] [address] [place] TROPONIN Ion 07-04-2022 Troponin I.cardiac [Mass/Vol] 0.050 ng/mL High <0.040 [facility] Comment on above: Order Comment: Speci men Type: BLOOD SPECIMENOrdering Facility: [facility] Address: [address] [place] [address] Performed By: #### Alexis EVANGELISTA, 11654-1 ####[facility] LABCLIA [id number] [address] Urinalysis complete panel (U )on 07-04-2022 Bilirubin Ql (U) Negative Normal Negative [facility] Comment on above: Order Comment: Speci men Type: URINE SPECIMENOrdering Facility: [facility] Address: [address] [place] [address] Performed By: #### 2 4356-8 ####[facility] LABCLIA [id number] [address] Clarity (Unsp spec) Clear Normal Clear [facility] Comment on above: Order Comment: Speci men Type: URINE SPECIMENOrdering Facility: [facility] Address: [address] [place] [address] Performed By: #### 2 4356-8 ####[facility] LABCLIA [id number] [address] Color (U) Yellow Normal Yellow [facility] Comment on above: Order Comment: Speci men Type: URINE SPECIMENOrdering Facility: [facility] Address: [address] [place] [address] Performed By: #### 2 4356-8 ####[facility] LABCLIA [id number] [place] [address] [facility] Glucose Test strip (U) [Mass/Vol] Negative Normal Negative [facility] Comment on above: Order Comment: Speci men Type: URINE SPECIMENOrdering Facility: [facility] Address: [address] [place] [address] Performed By: #### 2 4356-8 ####[facility] LABCLIA [id number] [address] [id number] Hemoglobin Ql (U) Negative Normal Negative [facility] Comment on above: Order Comment: Speci men Type: URINE SPECIMENOrdering Facility: [facility] Address: [address] [place] [address] Performed By: #### 2 4356-8 ####[facility] LABCLIA [id number] [address] Ketones Ql (U) Negative Normal Negative [facility] Comment on above: Order Comment: Speci men Type: URINE SPECIMENOrdering Facility: [facility] Address: [address] [place] [address] Performed By: #### 2 4356-8 ####[facility] LABCLIA [id number] [address] Leukocyte esterase Test strip Ql (U) Negative Normal Negative [facility] Comment on above: Order Comment: Speci men Type: URINE SPECIMENOrdering Facility: [facility] Address: [address] [place] [address] Performed By: #### 2 4356-8 ####[facility] LABCLIA [id number] [address] STATES [facility] Nitrite Ql (U) Negative Normal Negative [facility] Comment on above: Order Comment: Speci men Type: URINE SPECIMENOrdering Facility: [facility] Address: [address] [place] [address] Performed By: #### 2 4356-8 ####[facility] LABCLIA [id number] [address] STATES [facility] pH (U) 5.5 [pH] Normal 5.0-8.0 [facility] Comment on above: Order Comment: Speci men Type: URINE SPECIMENOrdering Facility: [facility] Address: [address] [place] [address] Performed By: #### 2 4356-8 ####[facility] LABCLIA [id number] [place] [address] [place] Protein (U) [Mass/Vol] Trace Abnormal Negative [facility] Comment on above: Order Comment: Speci men Type: URINE SPECIMENOrdering Facility: [facility] Address: [address] [place] [address] Performed By: #### 2 4356-8 ####[facility] LABCLIA [id number] [address] RBC LM.HPF (Urine sed) [#/Area] 0-3 /HPF Normal 0-3 /HPF [facility] Comment on above: Order Comment: Speci men Type: URINE SPECIMENOrdering Facility: [facility] Address: [address] [place] [address] Performed By: #### 2 4356-8 ####[facility] LABIA [id number] [address] Specific gravity (U) [Rel density] <1.005 Low 1.005-1.03 0 [facility] Comment on above: Order Comment: Speci men Type: URINE SPECIMENOrdering Facility: [facility] Address: [address] [place] [address] Performed By: #### 2 4356-8 ####[facility] LABCLIA [id number] [address] Urobilinogen Ql (U) Negative Normal Negative [facility] Comment on above: Order Comment: Speci men Type: URINE SPECIMENOrdering Facility: [facility] Address: [address] [place] [address] Performed By: #### 2 4356-8 ####[facility] LABCLIA [id number] [address] [place] WBC LM.HPF (Urine sed) [#/Area] 0-5 /HPF Normal 0-5 /HPF [facility] Comment on above: Order Comment: Speci men Type: URINE SPECIMENOrdering Facility: [facility] Address: [address] [place] [address] Performed By: #### 2 4356-8 ####[facility] LABCLIA [id number] [place] [address] [place] XR CHEST 2V FRONTAL/LATon XR CHEST 2V FRONTAL/LAT Normal [facility] XR KNEE LIMITED 2V AP/LAT RI GHTon 06-04-2022 [facility] MRI LUMBAR SPINE WO IVCONon 05-26-2022 MRI LUMBAR SPINE WO IVCON Normal [facility] BMPon 09-20-2021 Anion gap [Moles/Vol] 8 mmol/L Normal 5-16 [facility] Comment on above: Order Comment: Campu s: M Performed By: #### L 500.72936, L500.70551 #### [facility] [place] [address] Calcium [Mass/Vol] 9.4 mg/dL Normal 8.5-10.5 [facility] Comment on above: Order Comment: Campu s: M Result Comment: NOTE NEW NORMAL RANGE DUE TO REAGENT CHANGE Performed By: #### L 500.56212, L500.29379 #### [facility] [place] [address] Chloride [Moles/Vol] 103 mmol/L Normal 98-107 [facility] Comment on above: Order Comment: Campu s: M Performed By: #### L 500.46019, L500.27650 #### [facility] [place] [address] CO2 [Moles/Vol] 27.0 mmol/L Normal 21-32 [facility] Comment on above: Order Comment: Campu s: M Performed By: #### L 500.30971, L500.03400 #### [facility] [place] [address] Creatinine [Mass/Vol] 0.90 mg/dL Normal 0.5-1.4 [facility] Comment on above: Order Comment: Campu s: M Result Comment: NOTE NEW NORMAL RANGE DUE TO REAGENT CHANGE Patients receiving either N-Acetylcysteine (NAC) or Metamizole prior to venipuncture, may have falsely depressed results. Performed By: #### L 500.71699, L500.40689 #### [facility] [address] [place], [place] [address] Glucose [Mass/Vol] 102 mg/dL High 70-100 [facility] Comment on above: Order Comment: Campu s: M Result Comment: 70-1 00- Normal Fasting; 100-125 Impaired Fasting; greater than 126 on more than one result- Diabetes. ADA guidelines. Results may be falsely elevated after the administration of Sulfapyridine. Results may be falsely depressed after the administration of Sulfasalazine. Performed By: #### L 500.50881, L500.67562 #### [facility] [address] [place] [address] Potassium [Moles/Vol] 4.5 mmol/L Normal 3.5-5.1 [facility] Comment on above: Order Comment: Campu s: M Result Comment: Slig ht Hemolysis, Result may be affected. Performed By: #### L 500.74460, L500.73054 #### [facility] [address] [place] [address] Sodium [Moles/Vol] 138 mmol/L Normal 136-145 [facility] Comment on above: Order Comment: Campu s: M Performed By: #### L 500.35825, L500.76288 #### [facility] [address] [place] [address] Urea nitrogen [Mass/Vol] 25 mg/dL Normal 7-26 [facility] Comment on above: Order Comment: Campu s: M Performed By: #### L 500.97472, L500.82433 #### [facility] [address] [place] [address] Urea nitrogen/Creatinine [Mass ratio] 28 mg/mg High 15-24 [facility] Comment on above: Order Comment: Campu s: M Performed By: #### L 500.28896, L500.60938 #### [facility] [address] [place] [address] CBC W/DIFFon 09-20-2021 BASO ABS 0.00 K/CU MM Normal 0-0.2 [facility] Comment on above: Order Comment: Campu s: M Performed By: #### L 200.77599 #### [facility] [address] [place] [address] Basophils/100 WBC (Bld) 0.6 % Normal 0-2 [facility] Comment on above: Order Comment: Campu s: M Performed By: #### L 200.18946 #### [facility] [address] [place] [address] EOS ABS 0.20 K/CU MM Normal 0-0.5 [facility] Comment on above: Order Comment: Campu s: M Performed By: #### L 200.90279 #### [facility] [address] [place] [address] Eosinophils/100 WBC (Bld) 2.7 % Normal 0-5 [facility] Comment on above: Order Comment: Campu s: M Performed By: #### L 200.92580 #### [facility] [address] [place] [address] Erythrocyte distribution width (RBC) [Ratio] 19.5 % High 11-14.5 [facility] Comment on above: Order Comment: Campu s: M Performed By: #### L [id number] #### [facility] [address] [place] [address] Hematocrit (Bld) [Volume fraction] 27.7 % Low 41.0-53.0 [facility] Comment on above: Order Comment: Campu s: M Performed By: #### L [id number] #### [facility] [address] [place] [address] Hemoglobin (Bld) [Mass/Vol] 9.4 g/dL Low 13.5-17.5 [facility] Comment on above: Order Comment: Campu s: M Performed By: #### L 200.42647 #### [facility] [address] [place] [address] IMMATR GRAN ABS 0.00 K/CU MM Normal Less than 2 [facility] Comment on above: Order Comment: Campu s: M Performed By: #### L [id number] #### [facility] [address] [place] [address] IMMATURE GRAN % 0.5 % Normal Less than 2 [facility] Comment on above: Order Comment: Campu s: M Performed By: #### L [id number] #### [facility] [address] [place] [address] LYMPH ABS 1.60 K/CU MM Normal 0.9-4.4 [facility] Comment on above: Order Comment: Campu s: M Performed By: #### L [id number] #### [facility] [address] [place] [address] Lymphocytes/100 WBC (Bld) 24.9 % Normal 20-40 [facility] Comment on above: Order Comment: Campu s: M Performed By: #### L [id number] #### [facility] [address] [place] [address] MCHC (RBC) [Mass/Vol] 33.9 g/dL Normal 32.0-36.0 [facility] Comment on above: Order Comment: Campu s: M Performed By: #### L 200.35676 #### [facility] [address] [place] [address] MCV (RBC) [Entitic vol] 104.9 fL High 80.0-99.0 [facility] Comment on above: Order Comment: Campu s: M Performed By: #### L 200.46136 #### [facility] [address] [place] [address] MONO ABS 0.80 K/CU MM Normal 0.1-1.1 [facility] Comment on above: Order Comment: Campu s: M Performed By: #### L 200.43888 #### [facility] [address] [place] [address] Monocytes/100 WBC (Bld) 11.9 % High 2-10 [facility] Comment on above: Order Comment: Campu s: M Performed By: #### L 200.07300 #### [facility] [address] [place] [address] NEUTROPHIL ABS 3.70 K/CU MM Normal 2.0-8.3 [facility] Comment on above: Order Comment: Campu s: M Performed By: #### L 200.12700 #### [facility] [address] [place] [address] Neutrophils/100 WBC (Bld) 59.4 % Normal 45-75 [facility] Comment on above: Order Comment: Campu s: M Performed By: #### L 200.03628 #### [facility] [address] [place] [address] Nucleated RBC/100 WBC (Bld) [Ratio] 0.3 % Normal Less than 1 [facility] Comment on above: Order Comment: Campu s: M Performed By: #### L [id number] #### [facility] [address] [place] [address] Platelet mean volume (Bld) [Entitic vol] 11.6 fL Normal 9.4-12.4 [facility] Comment on above: Order Comment: Campu s: M Performed By: #### L 200.23251 #### [facility] [address] [place] [address] PLT 278 K/CU MM Normal 150-450 [facility] Comment on above: Order Comment: Campu s: M Performed By: #### L [id number] #### [facility] [address] [place] [address] RBC 2.64 M/CU MM Low 4.50-6.00 [facility] Comment on above: Order Comment: Campu s: M Performed By: #### L 200.12303 #### [facility] [address] [place] [address] WBC 6.3 K/CUMM Normal 4.5-11.0 [facility] Comment on above: Order Comment: Campu s: M Performed By: #### L [id number] #### [facility] [address] [place] [id number] Chava 09-20-2021 EMERGENCY PHYSICIAN REPORT This is a preliminary report only, as the practitioner review and authentication has not occurred. 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 Identified to have atrial fibrillation at that time initiated on Coumadin. He resides here locally and follows with Dr. Posadas and Dr. Minor. 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 fib anticoagulation upon his return. He has been doing well postoperatively [facility] PATIENT NAME: SRINI LUIS [address] Mercado MEDICAL REC #: [id number] [place] [address] EMERGENCY DEPARTMENT REPORT EMERGENCY DEPARTMENT PHYSICIAN although [...] of cellulitis along the leg. Neurological: Alert, [facility] PATIENT NAME: SRINI LUIS [address] Mercado MEDICAL REC #: [id number] [place] [address] EMERGENCY DEPARTMENT REPORT EMERGENCY DEPARTMENT PHYSICIAN Oriented [...] lymphati (more content not included)... [facility] IF AMER Greater than 60 Normal [facility] Comment on above: Order Comment: Tomer sRosario Carlson Performed By: #### L 500.80575, L500.96815 #### [facility] [address] [place] [address] IF non-AFR AMER Greater than 60 Normal [facility] Comment on above: Order Comment: Tomer s: Robyn Performed By: #### L 500.49438, L500.84501 #### [facility] [address] [place] [address] VLVDon 09-20-2021 VENOUS DUPLEX REPORT Normal [facility] VASCULAR REPORT -- Patient: SRINI LUIS Account [id number] Ordering Phy: MR: [id number] Reason for Visit: SENT BY FOR LEG ISSUE - PROTRUDING SKIN Date of Service 09/20/21 Reading Physician: David Ledbetter MD [id number] ER [id number] SINGLE LE VENOUS DUPLEX SCAN [address] [place] [address] Non- Invasive Vascular Laboratory Lower Extremity Venous Duplex ____ Name: SRINI LUIS Study Date: 09/20/2021 06:14 PM Patient Location: [facility] : 1935 Gender: Male Age: 85 yrs Ethnicity: [place] Accession No. [id number] No. [id number] Order No. [id number] Reason For Study: M79.89 (Swelling) Other specified soft tissue disorders Interpretation Summary No evidence of deep vein thrombosis (DVT) or superficial vein thrombosis in the right lower extremity. Non vascular area along anterior medial(area CC: Benny Stoll MD [facility] PATIENT NAME: SRINI LUIS [address] [place] [address] Dr. Mercado MEDICAL REC #: [id number] [place] [address] ADMIT DATE: DISCHARGE DATE: 09/20/21 VENOUS DUPLEX REPORT ATTENDING PHY: Benny Stoll MD Electronically Signed by: David Ledbetter MD Esign Date: 09/20/21 VASCULAR REPORT -- Patient: SRINI LUIS Account [id number] Ordering Phy: MR: [id number] Reason for Visit: SENT BY FOR LEG ISSUE - PROTRUDING SKIN Date of Service 09/20/21 Reading Physician: David Ledbetter MD of [facility]) measures 13.4 x 1.63 x 2.75 cm. [...] Ant Tib: Completely CC: Benny Stoll MD [facility] PATIENT NAME: SRINI LUIS [address] Mercado MEDICAL REC #: [id number] [place] [id number] ADMIT DATE: DISCHARGE DATE: 09/20/21 VENOUS DUPLEX REPORT ATTENDING PHY: Benny Stoll MD Electronically Signed by: David Ledbetter MD Esign Date: 09/20/21 VASCULAR REPORT -- Patient: SRINI LUIS Account [id number] Ordering Phy: MR: [id number] Reason for Visit: SENT BY FOR LEG [...] x 2.75 cm. CC: Benny Stoll MD [facility] PATIENT NAME: SRINI LUIS [address] Mercado MEDICAL REC #: [id number] [place] [address] ADMIT DATE: DISCHARGE DATE: 09/20/21 VENOUS DUPLEX REPORT ATTENDING PHY: Benny Stoll MD Electronically Signed by: David Ledbetter MD Esign Date: 09/20/21 VASCULAR REPORT -- Patient: SRINI LUIS Account [id number] Ordering Phy: MR: [id number] Reason for Visit: SENT BY FOR LEG ISSUE - PROTRUDING SKIN Date of Service 09/20/21 Reading Physician: David Ledbetter MD ____ Electronically signed b (more content not included)... Normal [facility] US DVT LOWER RTon 02-01-2021 US DVT LOWER RT Final Report DATE OF EXAM: Feb 01 2021 2:00PM [facility] LOWER RT / [...] and stored in a permanent archive. MQ: [email or web address]_1 COMPARISON: None RESULT: RIGHT LOWER EXTREMITY PROXIMAL [...] imaged segments of the right lower extremity. Repack Room Worker: PSCB Transcribe Date/Time: Feb 01 2021 2:03P Dictated by : LARON CEDEÑO MD This examination was interpreted and the report reviewed and electronically signed by: LARON CEDEÑO MD on Feb 01 2021 2:05PM EST Normal [facility] CT ANKLE WO IVCON RTon 10-16 CT ANKLE WO IVCON RT Final Report DATE OF EXAM: Oct 16 2020 6:20PM [facility] 0061 - CT ANKLE WO IVCON RT [...] tenosynovitis versus communication with the ankle joint. Repack Room Worker: BERNARDA Transcribe Date/Time: Oct 17 2020 8:58A Dictated by : ISABEL ZAVALETA MD This examination was interpreted and the report reviewed and electronically signed by: ISABEL ZAVALETA MD on Oct 17 2020 9:10AM EST Normal [facility] Clinical Summary: HMSPatient IDon 09-28-2020 AOP [facility] Work Phone: Clinical Lists Update: Prelo ad Extendedon 09-27-2020 Tobacco smoking status NHIS Tobacco smoking status [facility] Work Phone: Clinical Summary: Data Submi tted by Patient in [place] 09-27-2020 #DEP CHLDRN No [facility] Work Phone: 3+ETOHDAILY less than 1 drink per day [facility] Work Phone: ALLERGY COMM Simvastatin [facility] Work Phone: ASTHEHSZHOUS 1 floor [facility] Work Phone: DEATHCAU DAD Heart Disease [facility] Work Phone: DEATHCAU MOM Heart [facility] Work Phone: DEP ALG LIST I don't have any adalberto g allergies.,I don't have any food allergies.,I don't have any environmental allergies. 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 [facility] Work Phone: DEP ETOH USE Yes [facility] Work Phone: DEP EXERCISE Yes [facility] Work Phone: DEP EXERTYP cycling [facility] Work Phone: DEP MED LIST Aleve 220 mg Cap, 1 times per day,Multi-Delyn 10.8 mg/mL;72 unt/mL;2.7 unt/mL;2.44 mg/mL;0.189 mg/mL;0.168 mg/mL;0.168 mg/mL;450 unt/mL;0.10658 mg/mL Annika, 1 times per day,Animi-3 With Vitamin D 1000 unt;1 mg;500 mg;200 mg;12.5 mg Cap, 1 times per day,Levothyroxine 0.112 mg Tab, 1 times per day,Fisherman's Friend 10 mg Lozenge, 1 times per day,Ecotrin [address], 1 times per day,Atorvastatin 10 mg Tab, 1 times per day [facility] Work Phone: DEP SH CSMO former smoker [facility] Work Phone: DEP SH FSMO 1988 [facility] Work Phone: DEP SH MAST [facility] Work Phone: DEP SURGERY Elbow surgery, Shoul lyn replacement - total [facility] Work Phone: DEPADDLPROB Myasthenia Gravis, S reji stenosis, Both shoulders replaced [facility] Work Phone: DEPEXER FREQ 3 days per week [facility] Work Phone: DEPFHMATUNKN My mother's health h istory is unknown [facility] Work Phone: ETOHPERFRM beer [facility] Work Phone: EXERZiliko I am [employer] member and use various equipment. [facility] Work Phone: FATHER A/D [facility] Work Phone: RSKZO7PIHYF I live in [facility] Work Phone: MOTHER A/D [facility] Work Phone: PREPRGETOH Zero times in the pa st 30 years of having more than 2 in any one day. [facility] Work Phone: RLATNSHPINFR Self [facility] Work Phone: SWHOUTYPE skilled nursing [facility] Work Phone: TOBUSEWHEN 25 [facility] Work Phone: WEBSURGCOM Both shoulders [facility] Work Phone: Vital Signs Date Time Vital Sign Value Performing Clinician Facility 06-23-2025 16:25-0400 Body temperature 97.7 [degF] Dr. Ronaldo Pleitez MD Work Phone: [facility] 06-23-2025 16:25-0400 Diastolic blood pressure 71 mm[Hg] Dr. Ronaldo Pleitez MD Work Phone: [facility] 06-23-2025 16:25-0400 Heart rate 62 /min Dr. Ronaldo Pleitez MD Work Phone: [facility] 06-23-2025 16:25-0400 Respiratory rate 18 /min Dr. Ronaldo Pleitez MD Work Phone: [facility] 06-23-2025 16:25-0400 SaO2% (BldA) [Mass fraction] 100 % Dr. Ronaldo Pleitez MD Work Phone: [facility] 06-23-2025 16:25-0400 Systolic blood pressure 98 mm[Hg] Dr. Ronaldo Pleitez MD Work Phone: [facility] 06-23-2025 13:39-0400 Body mass index (BMI) [Ratio] 28.5 kg/m2 Dr. Ronaldo Pleitez MD Work Phone: 4(875)514-077302 [place] [address] 06-23-2025 13:39-0400 Body weight 82.[address] Ronaldo Pleitez MD Work Phone: 6(733)197-576541 [place] [address] 06-23-2025 13:25-0400 Body height 170.[address] Ronaldo Pleitez MD Work Phone: 5(981)913-504441 [place] [address] 06-23-2025 13:25-0400 Body temperature 97.9 [degF] Dr. Ronaldo Pleitez MD Work Phone: 5(746)670-240841 [place] [address] 06-23-2025 13:25-0400 Diastolic blood pressure 72 mm[Hg] Dr. Ronaldo Pleitez MD Work Phone: 4(194)893-215541 [place] [address] 06-23-2025 13:25-0400 Heart rate 61 /min Dr. Ronaldo Pleitez MD Work Phone: 3(087)908-349241 [place] [address] 06-23-2025 13:25-0400 Respiratory rate 16 /min Dr. Ronaldo Pleitez MD Work Phone: 7(680)672-467241 [place] [address] 06-23-2025 13:25-0400 SaO2% (BldA) [Mass fraction] 93 % Dr. Ronaldo Pleitez MD Work Phone: 8(956)183-195002 [place] [address] 06-23-2025 13:25-0400 Systolic blood pressure 121 mm[Hg] Dr. Ronaldo Pleitez MD Work Phone: [facility] 06-23-2025 10:30-0400 Body temperature 97.11 [degF] Ronaldo Pleitez MD Work Phone: [facility] 06-23-2025 10:30-0400 Diastolic blood pressure 64 mm[Hg] Ronaldo Pleitez MD Work Phone: [facility] 06-23-2025 10:30-0400 Heart rate 60 /min Ronaldo Pleitez MD Work Phone: [facility] 06-23-2025 10:30-0400 Respiratory rate 16 /min Ronaldo Pleitez MD Work Phone: [facility] 06-23-2025 10:30-0400 SaO2% (BldA) [Mass fraction] 96 % Ronaldo Pleitez MD Work Phone: [facility] 06-23-2025 10:30-0400 Systolic blood pressure 114 mm[Hg] Ronaldo Pleitez MD Work Phone: [facility] 06-21-2025 11:11-0400 Body mass index (BMI) [Ratio] 29.8 kg/m2 Ronaldo Pleitez MD Work Phone: [facility] 06-21-2025 11:11-0400 Body temperature 97.2 [degF] Ronaldo Pleitez MD Work Phone: [facility] 06-21-2025 11:11-0400 Body weight 86.3 kg Ronaldo Pleitez MD Work Phone: [facility] 06-21-2025 11:11-0400 Heart rate 72 /min Ronaldo Pleitez MD Work Phone: [facility] 06-21-2025 11:11-0400 Respiratory rate 16 /min Ronaldo Pleitez MD Work Phone: [facility] 06-19-2025 00:29-0400 Body temperature 97.5 [degF] Dr. Ronaldo Pleitez MD Work Phone: [facility] 06-19-2025 00:29-0400 Diastolic blood pressure 72 mm[Hg] Dr. Ronaldo Pleitez MD Work Phone: [facility] 06-19-2025 00:29-0400 Heart rate 82 /min Dr. Ronaldo Pleitez MD Work Phone: [facility] 06-19-2025 00:29-0400 Respiratory rate 20 /min Dr. Ronaldo Pleitez MD Work Phone: [facility] 06-19-2025 00:29-0400 SaO2% (BldA) [Mass fraction] 97 % Dr. Ronaldo Pleitez MD Work Phone: [facility] 06-19-2025 00:29-0400 Systolic blood pressure 122 mm[Hg] Dr. Ronaldo Pleitez MD Work Phone: [facility] 06-18-2025 21:23-0400 Body mass index (BMI) [Ratio] 29.4 kg/m2 Dr. Ronaldo Pleitez MD Work Phone: 4(443)468-435541 [place] [address] 06-18-2025 21:23-0400 Body weight 85.[address] Ronaldo Pleitez MD Work Phone: [facility] 06-18-2025 20:55-0400 Body height 170.[address] Ronaldo Pleitez MD Work Phone: [facility] 06-09-2025 09:53-0400 Body temperature 97 [degF] Injection Wstr Work Phone: [facility] 06-09-2025 09:53-0400 Diastolic blood pressure 64 mm[Hg] Injection Wstr Work Phone: [facility] 06-09-2025 09:53-0400 Heart rate 81 /min Injection Wstr Work Phone: [facility] 06-09-2025 09:53-0400 Respiratory rate 12 /min Injection Wstr Work Phone: [facility] 06-09-2025 09:53-0400 SaO2% (BldA) [Mass fraction] 95 % Injection Wstr Work Phone: [facility] 06-09-2025 09:53-0400 Systolic blood pressure 122 mm[Hg] Injection Wstr Work Phone: [facility] 06-05-2025 14:37-0400 Body mass index (BMI) [Ratio] 25.84 kg/m2 Arabella Moreno APRN.CNP Work Phone: [facility] 06-05-2025 14:37-0400 Body weight 74.84 kg Arabella Tiffanie TOOL ROOM SUPERVISOR.TUMOR REGISTRAR Work Phone: [facility] 06-05-2025 14:37-0400 Diastolic blood pressure 82 mm[Hg] Arabella Tiffanie TOOL ROOM SUPERVISOR.TUMOR REGISTRAR Work Phone: [facility] 06-05-2025 14:37-0400 Heart rate 84 /min Arabella Tiffanie TOOL ROOM SUPERVISOR.TUMOR REGISTRAR Work Phone: [facility] 06-05-2025 14:37-0400 Respiratory rate 12 /min Arabella Tiffanie TOOL ROOM SUPERVISOR.TUMOR REGISTRAR Work Phone: [facility] 06-05-2025 14:37-0400 SaO2% (BldA) [Mass fraction] 94 % Arabella Tiffanie TOOL ROOM SUPERVISOR.TUMOR REGISTRAR Work Phone: [facility] 06-05-2025 14:37-0400 Systolic blood pressure 124 mm[Hg] Arabella Tiffanie TOOL ROOM SUPERVISOR.TUMOR REGISTRAR Work Phone: [facility] 05-30-2025 12:49-0400 Body mass index (BMI) [Ratio] 25.84 kg/m2 Arabella Tiffanie TOOL ROOM SUPERVISOR.TUMOR REGISTRAR Work Phone: [facility] 05-30-2025 12:49-0400 Body weight 74.84 kg Arabella Tiffanie TOOL ROOM SUPERVISOR.TUMOR REGISTRAR Work Phone: [facility] 05-30-2025 12:49-0400 Diastolic blood pressure 74 mm[Hg] Arabella Tiffanie TOOL ROOM SUPERVISOR.TUMOR REGISTRAR Work Phone: [facility] 05-30-2025 12:49-0400 Heart rate 74 /min Arabella Tiffanie TOOL ROOM SUPERVISOR.TUMOR REGISTRAR Work Phone: [facility] 05-30-2025 12:49-0400 Respiratory rate 12 /min Arabella Tiffanie TOOL ROOM SUPERVISOR.TUMOR REGISTRAR Work Phone: [facility] 05-30-2025 12:49-0400 SaO2% (BldA) [Mass fraction] 98 % Arabella Tiffanie TOOL ROOM SUPERVISOR.TUMOR REGISTRAR Work Phone: [facility] 05-30-2025 12:49-0400 Systolic blood pressure 116 mm[Hg] Arabella Tiffanie TOOL ROOM SUPERVISOR.TUMOR REGISTRAR Work Phone: [facility] 05-26-2025 09:47-0400 Diastolic blood pressure 54 mm[Hg] Injection Wstr Work Phone: [facility] 05-26-2025 09:47-0400 Heart rate 84 /min Injection Wstr Work Phone: [facility] 05-26-2025 09:47-0400 Respiratory rate 12 /min Injection Wstr Work Phone: [facility] 05-26-2025 09:47-0400 SaO2% (BldA) [Mass fraction] 97 % Injection Wstr Work Phone: [facility] 05-26-2025 09:47-0400 Systolic blood pressure 100 mm[Hg] Injection Wstr Work Phone: [facility] 05-25-2025 14:48-0400 Body mass index (BMI) [Ratio] 25.9 kg/m2 Arabella Tiffanie TOOL ROOM SUPERVISOR.TUMOR REGISTRAR Work Phone: [facility] 05-25-2025 14:48-0400 Body weight 75 kg Arabella Tiffanie TOOL ROOM SUPERVISOR.TUMOR REGISTRAR Work Phone: [facility] 05-25-2025 14:48-0400 Diastolic blood pressure 56 mm[Hg] Arabella Tiffanei TOOL ROOM SUPERVISOR.TUMOR REGISTRAR Work Phone: [facility] 05-25-2025 14:48-0400 Heart rate 79 /min Arabella Tiffanie TOOL ROOM SUPERVISOR.TUMOR REGISTRAR Work Phone: [facility] 05-25-2025 14:48-0400 Respiratory rate 16 /min Arabella Tiffanie TOOL ROOM SUPERVISOR.TUMOR REGISTRAR Work Phone: [facility] 05-25-2025 14:48-0400 Systolic blood pressure 104 mm[Hg] Arabella Tiffanie TOOL ROOM SUPERVISORHenriettaTUMOR REGISTRAR Work Phone: [facility] 05-11-2025 09:58-0400 Body temperature 98.01 [degF] Injection Wstr Work Phone: [facility] 05-11-2025 09:58-0400 Diastolic blood pressure 72 mm[Hg] Injection Wstr Work Phone: [facility] 05-11-2025 09:58-0400 Heart rate 74 /min Injection Wstr Work Phone: [facility] 05-11-2025 09:58-0400 Respiratory rate 12 /min Injection Wstr Work Phone: [facility] 05-11-2025 09:58-0400 SaO2% (BldA) [Mass fraction] 94 % Injection Wstr Work Phone: [facility] 05-11-2025 09:58-0400 Systolic blood pressure 116 mm[Hg] Injection Wstr Work Phone: [facility] 04-28-2025 09:49-0400 Diastolic blood pressure 49 mm[Hg] Injection Wstr Work Phone: [facility] 04-28-2025 09:49-0400 Heart rate 78 /min Injection Wstr Work Phone: [facility] 04-28-2025 09:49-0400 Respiratory rate 12 /min Injection Wstr Work Phone: [facility] 04-28-2025 09:49-0400 SaO2% (BldA) [Mass fraction] 95 % Injection Wstr Work Phone: [facility] 04-28-2025 09:49-0400 Systolic blood pressure 97 mm[Hg] Injection Wstr Work Phone: [facility] 04-07-2025 11:21-0400 Body height 170.2 cm Iram Johnson TOOL ROOM SUPERVISOR.TUMOR REGISTRAR Work Phone: [facility] 04-07-2025 11:21-0400 Body mass index (BMI) [Ratio] 27.1 kg/m2 Iram Johnson TOOL ROOM SUPERVISOR.TUMOR REGISTRAR Work Phone: [facility] 04-07-2025 11:21-0400 Body weight 78.47 kg Iram Johnson TOOL ROOM SUPERVISOR.TUMOR REGISTRAR Work Phone: [facility] 04-07-2025 11:21-0400 Diastolic blood pressure 68 mm[Hg] Iram Johnson TOOL ROOM SUPERVISOR.TUMOR REGISTRAR Work Phone: [facility] 04-07-2025 11:21-0400 Heart rate 83 /min Iram Johnson TOOL ROOM SUPERVISOR.TUMOR REGISTRAR Work Phone: [facility] 04-07-2025 11:21-0400 Systolic blood pressure 130 mm[Hg] Iram Johnson TOOL ROOM SUPERVISOR.TUMOR REGISTRAR Work Phone: [facility] 03-27-2025 14:49-0400 Body mass index (BMI) [Ratio] 27.28 kg/m2 Ronaldo Pleitez MD Work Phone: [facility] 03-27-2025 14:49-0400 Body weight 79 kg Roanldo Pleitez MD Work Phone: [facility] 03-27-2025 14:49-0400 Diastolic blood pressure 58 mm[Hg] Ronaldo Pleitez MD Work Phone: [facility] 03-27-2025 14:49-0400 Heart rate 68 /min Ronaldo Pleitez MD Work Phone: [facility] 03-27-2025 14:49-0400 Respiratory rate 16 /min Ronaldo Pleitez MD Work Phone: [facility] 03-27-2025 14:49-0400 Systolic blood pressure 106 mm[Hg] Ronaldo Pleitez MD Work Phone: [facility] 03-17-2025 14:16-0400 Body temperature 97.59 [degF] Injection Wstr Work Phone: [facility] 03-17-2025 14:16-0400 Diastolic blood pressure 57 mm[Hg] Injection Wstr Work Phone: [facility] 03-17-2025 14:16-0400 Heart rate 55 /min Injection Wstr Work Phone: [facility] 03-17-2025 14:16-0400 Respiratory rate 12 /min Injection Wstr Work Phone: [facility] 03-17-2025 14:16-0400 SaO2% (BldA) [Mass fraction] 95 % Injection Wstr Work Phone: [facility] 03-17-2025 14:16-0400 Systolic blood pressure 116 mm[Hg] Injection Wstr Work Phone: [facility] 02-17-2025 09:55-0400 Body temperature 97.7 [degF] Injection Wstr Work Phone: [facility] 02-17-2025 09:55-0400 Diastolic blood pressure 57 mm[Hg] Injection Wstr Work Phone: [facility] Comment on above: DENIES ANY DIZZINESS 02-17-2025 09:55-0400 Heart rate 79 /min Injection Wstr Work Phone: [facility] 02-17-2025 09:55-0400 Respiratory rate 12 /min Injection Wstr Work Phone: [facility] 02-17-2025 09:55-0400 SaO2% (BldA) [Mass fraction] 93 % Injection Wstr Work Phone: [facility] 02-17-2025 09:55-0400 Systolic blood pressure 95 mm[Hg] Injection Wstr Work Phone: [facility] Comment on above: DENIES ANY DIZZINESS 02-03-2025 10:32-0400 Diastolic blood pressure 65 mm[Hg] Injection Wstr Work Phone: [facility] 02-03-2025 10:32-0400 Heart rate 83 /min Injection Wstr Work Phone: [facility] 02-03-2025 10:32-0400 Respiratory rate 12 /min Injection Wstr Work Phone: [facility] 02-03-2025 10:32-0400 SaO2% (BldA) [Mass fraction] 94 % Injection Wstr Work Phone: [facility] 02-03-2025 10:32-0400 Systolic blood pressure 100 mm[Hg] Injection Wstr Work Phone: [facility] 01-31-2025 10:54-0400 Body mass index (BMI) [Ratio] 26.55 kg/m2 Arabella Tiffanie TOOL ROOM SUPERVISOR.TUMOR REGISTRAR Work Phone: [facility] 01-31-2025 10:54-0400 Body weight 76.9 kg Arabella Tiffanie TOOL ROOM SUPERVISOR.TUMOR REGISTRAR Work Phone: [facility] 01-31-2025 10:54-0400 Diastolic blood pressure 78 mm[Hg] Arabella Tiffanie TOOL ROOM SUPERVISOR.TUMOR REGISTRAR Work Phone: [facility] 01-31-2025 10:54-0400 Heart rate 78 /min Arabella Tiffanie TOOL ROOM SUPERVISOR.TUMOR REGISTRAR Work Phone: [facility] 01-31-2025 10:54-0400 Respiratory rate 14 /min Arabella Tiffanie TOOL ROOM SUPERVISOR.TUMOR REGISTRAR Work Phone: [facility] 01-31-2025 10:54-0400 SaO2% (BldA) [Mass fraction] 98 % Arabella Tiffanie TOOL ROOM SUPERVISOR.TUMOR REGISTRAR Work Phone: [facility] 01-31-2025 10:54-0400 Systolic blood pressure 126 mm[Hg] Arabella Tiffanie TOOL ROOM SUPERVISOR.TUMOR REGISTRAR Work Phone: [facility] 01-20-2025 10:36-0400 Body temperature 98.2 [degF] Injection Wstr Work Phone: [facility] 01-20-2025 10:36-0400 Diastolic blood pressure 69 mm[Hg] Injection Wstr Work Phone: [facility] 01-20-2025 10:36-0400 Heart rate 83 /min Injection Wstr Work Phone: [facility] 01-20-2025 10:36-0400 SaO2% (BldA) [Mass fraction] 94 % Injection Wstr Work Phone: [facility] 01-20-2025 10:36-0400 Systolic blood pressure 112 mm[Hg] Injection Wstr Work Phone: [facility] 01-06-2025 10:35-0500 Body mass index (BMI) [Ratio] 26.86 kg/m2 Baljinder Masci DO Work Phone: [facility] 01-06-2025 10:35-0500 Body temperature 97.2 [degF] Baljinder Masci DO Work Phone: [facility] 01-06-2025 10:35-0500 Body weight 77.79 kg Baljinder Masci DO Work Phone: [facility] 01-06-2025 10:35-0500 Diastolic blood pressure 70 mm[Hg] Baljinder Masci DO Work Phone: [facility] 01-06-2025 10:35-0500 Heart rate 83 /min Baljinder Masci DO Work Phone: [facility] 01-06-2025 10:35-0500 SaO2% (BldA) [Mass fraction] 93 % Baljinder Masci DO Work Phone: [facility] 01-06-2025 10:35-0500 Systolic blood pressure 115 mm[Hg] Baljinder Masci DO Work Phone: [facility] 12-23-2024 10:02-0500 Body mass index (BMI) [Ratio] 26.94 kg/m2 Injection Wstr Work Phone: [facility] 12-23-2024 10:02-0500 Body weight 78.02 kg Injection Wstr Work Phone: [facility] 12-23-2024 10:02-0500 Diastolic blood pressure 64 mm[Hg] Injection Wstr Work Phone: [facility] 12-23-2024 10:02-0500 Heart rate 82 /min Injection Wstr Work Phone: [facility] 12-23-2024 10:02-0500 Respiratory rate 12 /min Injection Wstr Work Phone: [facility] 12-23-2024 10:02-0500 SaO2% (BldA) [Mass fraction] 92 % Injection Wstr Work Phone: [facility] 12-23-2024 10:02-0500 Systolic blood pressure 106 mm[Hg] Injection Wstr Work Phone: [facility] 12-09-2024 11:32-0500 Body mass index (BMI) [Ratio] 26.94 kg/m2 Injection Wstr Work Phone: [facility] 12-09-2024 11:32-0500 Body temperature 98.1 [degF] Injection Wstr Work Phone: [facility] 12-09-2024 11:32-0500 Body weight 78.02 kg Injection Wstr Work Phone: [facility] 12-09-2024 11:32-0500 Diastolic blood pressure 68 mm[Hg] Injection Wstr Work Phone: [facility] 12-09-2024 11:32-0500 Heart rate 87 /min Injection Wstr Work Phone: [facility] 12-09-2024 11:32-0500 SaO2% (BldA) [Mass fraction] 94 % Injection Wstr Work Phone: [facility] 12-09-2024 11:32-0500 Systolic blood pressure 108 mm[Hg] Injection Wstr Work Phone: [facility] 11-24-2024 13:07-0500 Body mass index (BMI) [Ratio] 26.94 kg/m2 Injection Wstr Work Phone: [facility] 11-24-2024 13:07-0500 Body temperature 97.7 [degF] Injection Wstr Work Phone: [facility] 11-24-2024 13:07-0500 Body weight 78.02 kg Injection Wstr Work Phone: [facility] 11-24-2024 13:07-0500 Diastolic blood pressure 80 mm[Hg] Injection Wstr Work Phone: [facility] 11-24-2024 13:07-0500 Heart rate 83 /min Injection Wstr Work Phone: [facility] 11-24-2024 13:07-0500 Respiratory rate 12 /min Injection Wstr Work Phone: [facility] 11-24-2024 13:07-0500 SaO2% (BldA) [Mass fraction] 98 % Injection Wstr Work Phone: [facility] 11-24-2024 13:07-0500 Systolic blood pressure 119 mm[Hg] Injection Wstr Work Phone: [facility] 10-11-2024 10:06-0500 Body mass index (BMI) [Ratio] 27.41 kg/m2 Baljinder Masci DO Work Phone: [facility] 10-11-2024 10:06-0500 Body temperature 98.49 [degF] Baljinder Masci DO Work Phone: [facility] 10-11-2024 10:06-0500 Body weight 79.38 kg Baljinder Masci DO Work Phone: [facility] 10-11-2024 10:06-0500 Diastolic blood pressure 63 mm[Hg] Baljinder Masci DO Work Phone: [facility] 10-11-2024 10:06-0500 Heart rate 79 /min Baljinder Masci DO Work Phone: [facility] 10-11-2024 10:06-0500 SaO2% (BldA) [Mass fraction] 92 % Baljinder Masci DO Work Phone: [facility] 10-11-2024 10:06-0500 Systolic blood pressure 102 mm[Hg] Baljinder Masci DO Work Phone: [facility] 09-27-2024 11:02-0500 Body height 170.2 cm Iram Johnson APRN.TUMOR REGISTRAR Work Phone: [facility] 09-27-2024 11:02-0500 Body mass index (BMI) [Ratio] 26.94 kg/m2 Iram Johnson TOOL ROOM SUPERVISOR.TUMOR REGISTRAR Work Phone: [facility] 09-27-2024 11:02-0500 Body weight 78.02 kg Iram Johnson TOOL ROOM SUPERVISOR.TUMOR REGISTRAR Work Phone: [facility] 09-27-2024 11:02-0500 Diastolic blood pressure 58 mm[Hg] Iram Johnson TOOL ROOM SUPERVISOR.TUMOR REGISTRAR Work Phone: [facility] 09-27-2024 11:02-0500 Heart rate 62 /min Iram Johnson TOOL ROOM SUPERVISOR.TUMOR REGISTRAR Work Phone: [facility] 09-27-2024 11:02-0500 Systolic blood pressure 116 mm[Hg] Iram Johnson TOOL ROOM SUPERVISOR.TUMOR REGISTRAR Work Phone: [facility] 09-15-2024 11:34-0500 Body mass index (BMI) [Ratio] 26.94 kg/m2 Lauri Cook Work Phone: [facility] 09-15-2024 11:34-0500 Body temperature 98.2 [degF] Lauri Cook Work Phone: [facility] 09-15-2024 11:34-0500 Body weight 78.02 kg Lauri Cook Work Phone: [facility] 09-15-2024 11:34-0500 Diastolic blood pressure 70 mm[Hg] Lauri Cook Work Phone: [facility] 09-15-2024 11:34-0500 Heart rate 77 /min Lauri Cook Work Phone: [facility] 09-15-2024 11:34-0500 SaO2% (BldA) [Mass fraction] 94 % Lauri Cook Work Phone: [facility] 09-15-2024 11:34-0500 Systolic blood pressure 109 mm[Hg] Lauri Cook Work Phone: [facility] 07-29-2024 11:11-0400 Body mass index (BMI) [Ratio] 26.83 kg/m2 Ronaldo Pleitez MD Work Phone: [facility] 07-29-2024 11:11-0400 Body temperature 98.4 [degF] Ronaldo Pleitez MD Work Phone: [facility] 07-29-2024 11:11-0400 Body weight 77.7 kg Ronaldo Pleitez MD Work Phone: [facility] 07-29-2024 11:11-0400 Diastolic blood pressure 70 mm[Hg] Ronaldo Pleitez MD Work Phone: [facility] 07-29-2024 11:11-0400 Heart rate 80 /min Ronaldo Pleitez MD Work Phone: [facility] 07-29-2024 11:11-0400 Respiratory rate 18 /min Ronaldo Pleitez MD Work Phone: [facility] 07-29-2024 11:11-0400 SaO2% (BldA) [Mass fraction] 97 % Ronaldo Pleitez MD Work Phone: [facility] 07-29-2024 11:11-0400 Systolic blood pressure 118 mm[Hg] Ronaldo Pleitez MD Work Phone: [facility] 06-16-2024 08:51-0400 Body mass index (BMI) [Ratio] 27.1 kg/m2 Baljinder Masci DO Work Phone: [facility] 06-16-2024 08:51-0400 Body temperature 98.1 [degF] Baljinder Masci DO Work Phone: [facility] 06-16-2024 08:51-0400 Body weight 78.47 kg Baljinder Masci DO Work Phone: [facility] 06-16-2024 08:51-0400 Diastolic blood pressure 55 mm[Hg] Baljinder Masci DO Work Phone: [facility] 06-16-2024 08:51-0400 Heart rate 81 /min Baljinder Masci DO Work Phone: [facility] 06-16-2024 08:51-0400 SaO2% (BldA) [Mass fraction] 96 % Baljinder Robbinsi DO Work Phone: [facility] 06-16-2024 08:51-0400 Systolic blood pressure 102 mm[Hg] Baljinder Masci DO Work Phone: [facility] 03-17-2024 11:42-0400 Body mass index (BMI) [Ratio] 26.08 kg/m2 Baljinder Masci DO Work Phone: [facility] 03-17-2024 11:42-0400 Body temperature 98.01 [degF] Baljinder Masci DO Work Phone: [facility] 03-17-2024 11:42-0400 Body weight 75.52 kg Baljinder Robbinsi DO Work Phone: [facility] 03-17-2024 11:42-0400 Diastolic blood pressure 58 mm[Hg] Baljinder Robbinsi DO Work Phone: [facility] 03-17-2024 11:42-0400 Heart rate 76 /min Baljinder Robbinsi DO Work Phone: [facility] 03-17-2024 11:42-0400 SaO2% (BldA) [Mass fraction] 95 % Baljinder Robbinsi DO Work Phone: [facility] 03-17-2024 11:42-0400 Systolic blood pressure 102 mm[Hg] Baljinder Robbinsi DO Work Phone: [facility] 02-29-2024 14:10-0400 Body height 170.2 cm Iram Johnson TOOL ROOM SUPERVISOR.TUMOR REGISTRAR Work Phone: [facility] 02-29-2024 14:10-0400 Body mass index (BMI) [Ratio] 25.53 kg/m2 Iram Johnson TOOL ROOM SUPERVISOR.TUMOR REGISTRAR Work Phone: [facility] 02-29-2024 14:10-0400 Body weight 73.94 kg Iram Johnson TOOL ROOM SUPERVISOR.TUMOR REGISTRAR Work Phone: [facility] 02-29-2024 14:10-0400 Diastolic blood pressure 78 mm[Hg] Iram Johnson TOOL ROOM SUPERVISOR.TUMOR REGISTRAR Work Phone: [facility] 02-29-2024 14:10-0400 Heart rate 62 /min Iram Johnson TOOL ROOM SUPERVISOR.TUMOR REGISTRAR Work Phone: [facility] 02-29-2024 14:10-0400 Systolic blood pressure 140 mm[Hg] Iram Johnson TOOL ROOM SUPERVISOR.TUMOR REGISTRAR Work Phone: [facility] 01-22-2024 10:57-0400 Body height 168.9 cm Ronaldo Pleitez MD Work Phone: [facility] 01-22-2024 10:57-0400 Body weight 75.43 kg Ronaldo Pleitez MD Work Phone: [facility] 01-22-2024 10:57-0400 Diastolic blood pressure 64 mm[Hg] Ronaldo Pleitez MD Work Phone: [facility] 01-22-2024 10:57-0400 Heart rate 68 /min Ronaldo Pleitez MD Work Phone: [facility] 01-22-2024 10:57-0400 Respiratory rate 18 /min Ronaldo Pleitez MD Work Phone: [facility] 01-22-2024 10:57-0400 Systolic blood pressure 118 mm[Hg] Ronaldo Pleitez MD Work Phone: [facility] 12-24-2023 11:12-0500 Body temperature 98.2 [degF] Baljinder Rosendoi DO Work Phone: [facility] 12-24-2023 11:12-0500 Body weight 73.71 kg Baljinder Masci DO Work Phone: [facility] 12-24-2023 11:12-0500 Diastolic blood pressure 84 mm[Hg] Baljinder Masci DO Work Phone: [facility] 12-24-2023 11:12-0500 Heart rate 65 /min Baljinder Robbinsi DO Work Phone: [facility] 12-24-2023 11:12-0500 SaO2% (BldA) [Mass fraction] 97 % Baljinder Robbinsi DO Work Phone: [facility] 12-24-2023 11:12-0500 Systolic blood pressure 125 mm[Hg] Baljinder Masci DO Work Phone: [facility] 12-23-2023 11:07-0500 Body temperature 97.2 [degF] Ronaldo Pleitez MD Work Phone: [facility] 12-23-2023 11:07-0500 Body weight 73.94 kg Ronaldo Pleitez MD Work Phone: [facility] 12-23-2023 11:07-0500 Diastolic blood pressure 58 mm[Hg] Ronaldo Pleitez MD Work Phone: [facility] 12-23-2023 11:07-0500 Heart rate 60 /min Ronaldo Pleitez MD Work Phone: [facility] 12-23-2023 11:07-0500 Respiratory rate 20 /min Ronaldo Pleitez MD Work Phone: [facility] 12-23-2023 11:07-0500 Systolic blood pressure 100 mm[Hg] Ronaldo Pleitez MD Work Phone: [facility] 09-30-2023 09:57-0500 Body temperature 98.49 [degF] Baljinder Masci DO Work Phone: [facility] 09-30-2023 09:57-0500 Body weight 73.03 kg Baljinder Masci DO Work Phone: [facility] 09-30-2023 09:57-0500 Diastolic blood pressure 56 mm[Hg] Baljinder Masci DO Work Phone: [facility] 09-30-2023 09:57-0500 Heart rate 59 /min Baljinder Masci DO Work Phone: [facility] 09-30-2023 09:57-0500 Respiratory rate 16 /min Baljinder Masci DO Work Phone: [facility] 09-30-2023 09:57-0500 SaO2% (BldA) [Mass fraction] 99 % Baljinder Masci DO Work Phone: [facility] 09-30-2023 09:57-0500 Systolic blood pressure 107 mm[Hg] Baljinder Galloway DO Work Phone: [facility] 07-24-2023 10:06-0400 Body weight 73.48 kg Arabella Older TOOL ROOM SUPERVISOR.TUMOR REGISTRAR Work Phone: [facility] 07-24-2023 10:06-0400 Diastolic blood pressure 72 mm[Hg] Arabella Older TOOL ROOM SUPERVISOR.TUMOR REGISTRAR Work Phone: [facility] 07-24-2023 10:06-0400 Heart rate 58 /min Arabella Older TOOL ROOM SUPERVISOR.TUMOR REGISTRAR Work Phone: [facility] 07-24-2023 10:06-0400 Respiratory rate 16 /min Arabella Older TOOL ROOM SUPERVISOR.TUMOR REGISTRAR Work Phone: [facility] 07-24-2023 10:06-0400 SaO2% (BldA) [Mass fraction] 97 % Arabella Older TOOL ROOM SUPERVISOR.TUMOR REGISTRAR Work Phone: [facility] 07-24-2023 10:06-0400 Systolic blood pressure 124 mm[Hg] Arabella Older TOOL ROOM SUPERVISOR.TUMOR REGISTRAR Work Phone: [facility] 07-23-2023 10:22-0400 Body height 170.2 cm Iram Johnson TOOL ROOM SUPERVISOR.TUMOR REGISTRAR Work Phone: [facility] 07-23-2023 10:22-0400 Body weight 73.94 kg Iram Johnson TOOL ROOM SUPERVISOR.TUMOR REGISTRAR Work Phone: [facility] 07-23-2023 10:22-0400 Diastolic blood pressure 60 mm[Hg] Iram Johnson TOOL ROOM SUPERVISOR.TUMOR REGISTRAR Work Phone: [facility] 07-23-2023 10:22-0400 Heart rate 69 /min Iram Johnson TOOL ROOM SUPERVISOR.TUMOR REGISTRAR Work Phone: [facility] 07-23-2023 10:22-0400 Systolic blood pressure 110 mm[Hg] Iram Johnson TOOL ROOM SUPERVISOR.TUMOR REGISTRAR Work Phone: [facility] 05-22-2023 12:20-0400 Body temperature 97.4 [degF] Dr. Pedro Diaz Work Phone: [facility] 05-22-2023 12:20-0400 Diastolic blood pressure 49 mm[Hg] Dr. Pedro Diaz Work Phone: [facility] 05-22-2023 12:20-0400 Heart rate 59 /min Dr. Pedro Diaz Work Phone: [facility] 05-22-2023 12:20-0400 Respiratory rate 16 /min Dr. Pedro Diaz Work Phone: [facility] 05-22-2023 12:20-0400 SaO2% (BldA) [Mass fraction] 93 % Dr. Pedro Diaz Work Phone: [facility] 05-22-2023 12:20-0400 Systolic blood pressure 127 mm[Hg] Dr. Pedro Diaz Work Phone: [facility] 05-22-2023 09:15-0400 Body height 170.[address] Pedro Diaz Work Phone: [facility] 05-18-2023 16:30-0400 Body temperature 97.9 [degF] Dr. Pedro Diaz Work Phone: [facility] 05-18-2023 16:30-0400 Diastolic blood pressure 74 mm[Hg] Dr. Pedro Diaz Work Phone: [facility] 05-18-2023 16:30-0400 Heart rate 54 /min Dr. Pedro Diaz Work Phone: [facility] 05-18-2023 16:30-0400 Respiratory rate 18 /min Dr. Pedro Diaz Work Phone: [facility] 05-18-2023 16:30-0400 SaO2% (BldA) [Mass fraction] 96 % Dr. Pedro Diaz Work Phone: [facility] 05-18-2023 16:30-0400 Systolic blood pressure 125 mm[Hg] Dr. Pedro Diaz Work Phone: [facility] 05-18-2023 09:43-0400 Diastolic blood pressure 81 mm[Hg] Dr. Pedro Diaz Work Phone: [facility] 05-18-2023 09:43-0400 Heart rate 52 /min Dr. Pedro Diaz Work Phone: [facility] 05-18-2023 09:43-0400 Systolic blood pressure 130 mm[Hg] Dr. Pedro Diaz Work Phone: [facility] 05-18-2023 08:45-0400 Body temperature 97.8 [degF] Dr. Pedro Diaz Work Phone: [facility] 05-18-2023 08:45-0400 Respiratory rate 16 /min Dr. Pedro Diaz Work Phone: [facility] 05-18-2023 08:45-0400 SaO2% (BldA) [Mass fraction] 95 % Dr. Pedro Diaz Work Phone: [facility] 05-18-2023 08:00-0400 Body mass index (BMI) [Ratio] 28.5 kg/m2 Dr. Pedro Diaz Work Phone: [facility] 05-18-2023 08:00-0400 Body weight 82.[address] Pedro Diaz Work Phone: [facility] 05-17-2023 03:59-0400 Body mass index (BMI) [Ratio] 28.6 kg/m2 Dr. Pedro Diaz Work Phone: [facility] 05-17-2023 03:59-0400 Body weight [address] Pedro Diaz Work Phone: [facility] 05-16-2023 12:42-0400 Inhaled oxygen flow rate 2 L/min Dr. Pedro Diaz Work Phone: [facility] 05-14-2023 18:22-0400 Body height 170.[address] Pedro Diaz Work Phone: [facility] 05-14-2023 16:25-0400 Body temperature 99.2 [degF] Dr. Ned Dinh Work Phone: [facility] 05-14-2023 16:25-0400 Diastolic blood pressure 59 mm[Hg] Dr. Ned Dinh Work Phone: [facility] 05-14-2023 16:25-0400 Heart rate 60 /min Dr. Ned Dinh Work Phone: [facility] 05-14-2023 16:25-0400 Inhaled oxygen flow rate 2 L/min Dr. Ned Dinh Work Phone: [facility] 05-14-2023 16:25-0400 Respiratory rate 16 /min Dr. Ned Dinh Work Phone: [facility] 05-14-2023 16:25-0400 SaO2% (BldA) [Mass fraction] 98 % Dr. Ned Dinh Work Phone: [facility] 05-14-2023 16:25-0400 Systolic blood pressure 112 mm[Hg] Dr. Nde Dinh Work Phone: [facility] 05-14-2023 12:19-0400 Body mass index (BMI) [Ratio] 28 kg/m2 Dr. Ned Dinh Work Phone: [facility] 05-14-2023 12:19-0400 Body weight 81.[address] Ned Dinh Work Phone: [facility] 05-14-2023 12:15-0400 Body height 170.[address] Ned Dinh Work Phone: [facility] 05-13-2023 14:04-0400 Body temperature 97.59 [degF] Treatment Wstr Work Phone: [facility] 05-13-2023 14:04-0400 Diastolic blood pressure 64 mm[Hg] Treatment Wstr Work Phone: [facility] 05-13-2023 14:04-0400 Heart rate 62 /min Treatment Wstr Work Phone: [facility] 05-13-2023 14:04-0400 Respiratory rate 16 /min Treatment Wstr Work Phone: [facility] 05-13-2023 14:04-0400 SaO2% (BldA) [Mass fraction] 97 % Treatment Wstr Work Phone: [facility] 05-13-2023 14:04-0400 Systolic blood pressure 140 mm[Hg] Treatment Wstr Work Phone: [facility] 05-11-2023 16:14-0400 Body height 170.2 cm Shorty Faith MD Work Phone: [facility] 05-11-2023 16:14-0400 Body temperature 97.59 [degF] Shorty Faith MD Work Phone: [facility] 05-11-2023 16:14-0400 Body weight 83.92 kg Shorty Faith MD Work Phone: [facility] 05-11-2023 16:14-0400 Diastolic blood pressure 56 mm[Hg] Shorty Faith MD Work Phone: [facility] 05-11-2023 16:14-0400 Heart rate 60 /min Shorty Faith MD Work Phone: [facility] 05-11-2023 16:14-0400 SaO2% (BldA) [Mass fraction] 98 % Shorty Faith MD Work Phone: [facility] 05-11-2023 16:14-0400 Systolic blood pressure 110 mm[Hg] Shorty Faith MD Work Phone: [facility] 05-11-2023 15:12-0400 Body temperature 98.1 [degF] Treatment Wstr Work Phone: [facility] 05-11-2023 15:12-0400 Diastolic blood pressure 42 mm[Hg] Treatment Wstr Work Phone: [facility] 05-11-2023 15:12-0400 Heart rate 60 /min Treatment Wstr Work Phone: [facility] 05-11-2023 15:12-0400 Respiratory rate 16 /min Treatment Wstr Work Phone: [facility] 05-11-2023 15:12-0400 SaO2% (BldA) [Mass fraction] 95 % Treatment Wstr Work Phone: [facility] 05-11-2023 15:12-0400 Systolic blood pressure 116 mm[Hg] Treatment Wstr Work Phone: [facility] 05-08-2023 14:00-0400 Body temperature 97.2 [degF] Treatment Wstr Work Phone: [facility] 05-08-2023 14:00-0400 Diastolic blood pressure 74 mm[Hg] Treatment Wstr Work Phone: [facility] 05-08-2023 14:00-0400 Heart rate 64 /min Treatment Wstr Work Phone: [facility] 05-08-2023 14:00-0400 Respiratory rate 16 /min Treatment Wstr Work Phone: [facility] 05-08-2023 14:00-0400 SaO2% (BldA) [Mass fraction] 97 % Treatment Wstr Work Phone: [facility] 05-08-2023 14:00-0400 Systolic blood pressure 151 mm[Hg] Treatment Wstr Work Phone: [facility] 05-07-2023 14:03-0400 Body temperature 97.7 [degF] Treatment Wstr Work Phone: [facility] 05-07-2023 14:03-0400 Diastolic blood pressure 59 mm[Hg] Treatment Wstr Work Phone: [facility] 05-07-2023 14:03-0400 Heart rate 60 /min Treatment Wstr Work Phone: [facility] 05-07-2023 14:03-0400 SaO2% (BldA) [Mass fraction] 96 % Treatment Wstr Work Phone: [facility] 05-07-2023 14:03-0400 Systolic blood pressure 126 mm[Hg] Treatment Wstr Work Phone: [facility] 05-05-2023 12:56-0400 Body temperature 97.59 [degF] Treatment Wstr Work Phone: [facility] 05-05-2023 12:56-0400 Body weight 84.14 kg Treatment Wstr Work Phone: [facility] 05-05-2023 12:56-0400 Diastolic blood pressure 54 mm[Hg] Treatment Wstr Work Phone: [facility] 05-05-2023 12:56-0400 Heart rate 60 /min Treatment Wstr Work Phone: [facility] 05-05-2023 12:56-0400 SaO2% (BldA) [Mass fraction] 93 % Treatment Wstr Work Phone: [facility] 05-05-2023 12:56-0400 Systolic blood pressure 120 mm[Hg] Treatment Wstr Work Phone: [facility] 05-04-2023 14:04-0400 Body temperature 98.4 [degF] Treatment Wstr Work Phone: [facility] 05-04-2023 14:04-0400 Diastolic blood pressure 58 mm[Hg] Treatment Wstr Work Phone: [facility] 05-04-2023 14:04-0400 Heart rate 56 /min Treatment Wstr Work Phone: [facility] 05-04-2023 14:04-0400 Respiratory rate 16 /min Treatment Wstr Work Phone: [facility] 05-04-2023 14:04-0400 Systolic blood pressure 147 mm[Hg] Treatment Wstr Work Phone: [facility] 05-01-2023 12:41-0400 Body temperature 97.39 [degF] David Cervantes APRN.TUMOR REGISTRAR Work Phone: [facility] 05-01-2023 12:41-0400 Body weight 83.23 kg David Cervantes TOOL ROOM SUPERVISOR.TUMOR REGISTRAR Work Phone: [facility] 05-01-2023 12:41-0400 Diastolic blood pressure 52 mm[Hg] David Cervantes TOOL ROOM SUPERVISOR.TUMOR REGISTRAR Work Phone: [facility] 05-01-2023 12:41-0400 Heart rate 61 /min David Cervantes TOOL ROOM SUPERVISOR.TUMOR REGISTRAR Work Phone: [facility] 05-01-2023 12:41-0400 SaO2% (BldA) [Mass fraction] 97 % David Callowayenter TOOL ROOM SUPERVISOR.TUMOR REGISTRAR Work Phone: [facility] 05-01-2023 12:41-0400 Systolic blood pressure 111 mm[Hg] David Callowayenter TOOL ROOM SUPERVISOR.TUMOR REGISTRAR Work Phone: [facility] 04-20-2023 13:30-0400 Body height 170.2 cm Israel Tirmonia DO Work Phone: [facility] 04-20-2023 13:30-0400 Body temperature 97 [degF] Israel Tirmonia DO Work Phone: [facility] 04-20-2023 13:30-0400 Body weight 82.01 kg Israel Tirmonia DO Work Phone: [facility] 04-20-2023 13:30-0400 Diastolic blood pressure 60 mm[Hg] Israel Tirmonia DO Work Phone: [facility] 04-20-2023 13:30-0400 Heart rate 61 /min Israel Tirmonia DO Work Phone: [facility] 04-20-2023 13:30-0400 SaO2% (BldA) [Mass fraction] 97 % Israel Tirmonia DO Work Phone: [facility] 04-20-2023 13:30-0400 Systolic blood pressure 102 mm[Hg] Israel Tirmonia DO Work Phone: [facility] 04-15-2023 14:00-0400 Body temperature 97.11 [degF] Treatment Wstr Work Phone: [facility] 04-15-2023 14:00-0400 Diastolic blood pressure 62 mm[Hg] Treatment Wstr Work Phone: [facility] 04-15-2023 14:00-0400 Heart rate 58 /min Treatment Wstr Work Phone: [facility] 04-15-2023 14:00-0400 Respiratory rate 18 /min Treatment Wstr Work Phone: [facility] 04-15-2023 14:00-0400 SaO2% (BldA) [Mass fraction] 95 % Treatment Wstr Work Phone: [facility] 04-15-2023 14:00-0400 Systolic blood pressure 135 mm[Hg] Treatment Wstr Work Phone: [facility] 04-14-2023 09:00-0400 Body temperature 97.59 [degF] Treatment Wstr Work Phone: [facility] 04-14-2023 09:00-0400 Diastolic blood pressure 69 mm[Hg] Treatment Wstr Work Phone: [facility] 04-14-2023 09:00-0400 Heart rate 77 /min Treatment Wstr Work Phone: [facility] 04-14-2023 09:00-0400 Respiratory rate 18 /min Treatment Wstr Work Phone: [facility] 04-14-2023 09:00-0400 SaO2% (BldA) [Mass fraction] 95 % Treatment Wstr Work Phone: [facility] 04-14-2023 09:00-0400 Systolic blood pressure 139 mm[Hg] Treatment Wstr Work Phone: [facility] 04-13-2023 15:42-0400 Body mass index (BMI) [Ratio] 27.6 kg/m2 Dr. Ned Dinh Work Phone: [facility] 04-13-2023 15:42-0400 Body weight 79.[address] Ned Dinh Work Phone: [facility] 04-13-2023 15:42-0400 Diastolic blood pressure 58 mm[Hg] Dr. Ned Dinh Work Phone: [facility] 04-13-2023 15:42-0400 Heart rate 59 /min Dr. Ned Dinh Work Phone: [facility] 04-13-2023 15:42-0400 Respiratory rate 16 /min Dr. Ned Dinh Work Phone: [facility] 04-13-2023 15:42-0400 SaO2% (BldA) [Mass fraction] 93 % Dr. Ned Dinh Work Phone: [facility] 04-13-2023 15:42-0400 Systolic blood pressure 108 mm[Hg] Dr. Ned Dinh Work Phone: [facility] 04-13-2023 10:24-0400 SaO2% (BldA) [Mass fraction] 94 % Treatment Wstr Work Phone: [facility] 04-13-2023 10:20-0400 Body temperature 97.7 [degF] Treatment Wstr Work Phone: [facility] 04-13-2023 10:20-0400 Diastolic blood pressure 61 mm[Hg] Treatment Wstr Work Phone: [facility] 04-13-2023 10:20-0400 Heart rate 63 /min Treatment Wstr Work Phone: [facility] 04-13-2023 10:20-0400 Systolic blood pressure 135 mm[Hg] Treatment Wstr Work Phone: [facility] 04-10-2023 10:15-0400 Body temperature 97.59 [degF] Treatment Wstr Work Phone: [facility] 04-10-2023 10:15-0400 Diastolic blood pressure 66 mm[Hg] Treatment Wstr Work Phone: [facility] 04-10-2023 10:15-0400 Heart rate 60 /min Treatment Wstr Work Phone: [facility] 04-10-2023 10:15-0400 Respiratory rate 16 /min Treatment Wstr Work Phone: [facility] 04-10-2023 10:15-0400 SaO2% (BldA) [Mass fraction] 95 % Treatment Wstr Work Phone: [facility] 04-10-2023 10:15-0400 Systolic blood pressure 131 mm[Hg] Treatment Wstr Work Phone: [facility] 04-09-2023 07:00-0400 Body temperature 97 [degF] Treatment Wstr Work Phone: [facility] 04-09-2023 07:00-0400 Body weight 81.87 kg Treatment Wstr Work Phone: [facility] 04-09-2023 07:00-0400 Diastolic blood pressure 64 mm[Hg] Treatment Wstr Work Phone: [facility] 04-09-2023 07:00-0400 Heart rate 59 /min Treatment Wstr Work Phone: [facility] 04-09-2023 07:00-0400 SaO2% (BldA) [Mass fraction] 96 % Treatment Wstr Work Phone: [facility] 04-09-2023 07:00-0400 Systolic blood pressure 136 mm[Hg] Treatment Wstr Work Phone: [facility] 04-08-2023 09:36-0400 Body temperature 97.81 [degF] Treatment Wstr Work Phone: [facility] 04-08-2023 09:36-0400 Body weight 80.97 kg Treatment Wstr Work Phone: [facility] 04-08-2023 09:36-0400 Diastolic blood pressure 65 mm[Hg] Treatment Wstr Work Phone: [facility] 04-08-2023 09:36-0400 Heart rate 59 /min Treatment Wstr Work Phone: [facility] 04-08-2023 09:36-0400 Respiratory rate 18 /min Treatment Wstr Work Phone: [facility] 04-08-2023 09:36-0400 SaO2% (BldA) [Mass fraction] 97 % Treatment Wstr Work Phone: [facility] 04-08-2023 09:36-0400 Systolic blood pressure 123 mm[Hg] Treatment Wstr Work Phone: [facility] 03-25-2023 11:51-0400 Body weight 74.84 kg Israel Tirmonia DO Work Phone: [facility] 03-25-2023 11:51-0400 Diastolic blood pressure 64 mm[Hg] Israel Tirmonia DO Work Phone: [facility] 03-25-2023 11:51-0400 Heart rate 76 /min Israel Tirmonia DO Work Phone: [facility] 03-25-2023 11:51-0400 Respiratory rate 16 /min Israel Tirmonia DO Work Phone: [facility] 03-25-2023 11:51-0400 Systolic blood pressure 112 mm[Hg] Israel Tirmonia DO Work Phone: [facility] 03-17-2023 08:38-0400 Body temperature 97.5 [degF] Chair Green Work Phone: [facility] 03-17-2023 08:38-0400 Diastolic blood pressure 81 mm[Hg] Chair Green Work Phone: [facility] 03-17-2023 08:38-0400 Heart rate 80 /min Chair Green Work Phone: [facility] 03-17-2023 08:38-0400 Systolic blood pressure 121 mm[Hg] Chair Green Work Phone: [facility] 03-16-2023 08:29-0400 Body temperature 98.6 [degF] Chair Green Work Phone: [facility] 03-16-2023 08:29-0400 Body weight 81.01 kg Chair Green Work Phone: [facility] 03-16-2023 08:29-0400 Diastolic blood pressure 55 mm[Hg] Chair Green Work Phone: [facility] 03-16-2023 08:29-0400 Heart rate 78 /min Chair Green Work Phone: [facility] 03-16-2023 08:29-0400 Respiratory rate 18 /min Chair Green Work Phone: [facility] 03-16-2023 08:29-0400 Systolic blood pressure 110 mm[Hg] Chair Green Work Phone: [facility] 03-13-2023 08:29-0400 Body temperature 97.7 [degF] Chair Green Work Phone: [facility] 03-13-2023 08:29-0400 Diastolic blood pressure 73 mm[Hg] Chair Green Work Phone: [facility] 03-13-2023 08:29-0400 Heart rate 92 /min Chair Green Work Phone: [facility] 03-13-2023 08:29-0400 Respiratory rate 18 /min Chair Green Work Phone: [facility] 03-13-2023 08:29-0400 Systolic blood pressure 113 mm[Hg] Chair Green Work Phone: [facility] 03-12-2023 14:32-0400 Body height 170.2 cm Israel Tirmonia DO Work Phone: [facility] 03-12-2023 14:32-0400 Body weight 78.93 kg Israel Tirmonia DO Work Phone: [facility] 03-12-2023 14:32-0400 Diastolic blood pressure 68 mm[Hg] Israel Tirmonia DO Work Phone: [facility] 03-12-2023 14:32-0400 Heart rate 90 /min Israel Tirmonia DO Work Phone: [facility] 03-12-2023 14:32-0400 Respiratory rate 16 /min Israel Tirmonia DO Work Phone: [facility] 03-12-2023 14:32-0400 Systolic blood pressure 120 mm[Hg] Israel Pruitt DO Work Phone: [facility] 03-12-2023 08:25-0400 Body temperature 97.9 [degF] Chair Green Work Phone: [facility] 03-12-2023 08:25-0400 Diastolic blood pressure 55 mm[Hg] Chair Green Work Phone: [facility] 03-12-2023 08:25-0400 Heart rate 112 /min Chair Green Work Phone: [facility] 03-12-2023 08:25-0400 Respiratory rate 18 /min Chair Green Work Phone: [facility] 03-12-2023 08:25-0400 Systolic blood pressure 103 mm[Hg] Chair Green Work Phone: [facility] 03-11-2023 08:24-0400 Body temperature 97.7 [degF] Chair Green Work Phone: [facility] 03-11-2023 08:24-0400 Diastolic blood pressure 68 mm[Hg] Chair Green Work Phone: [facility] 03-11-2023 08:24-0400 Heart rate 96 /min Chair Green Work Phone: [facility] 03-11-2023 08:24-0400 Systolic blood pressure 110 mm[Hg] Chair Green Work Phone: [facility] 03-09-2023 08:26-0400 Body temperature 97.7 [degF] Chair Green Work Phone: [facility] 03-09-2023 08:26-0400 Body weight 82.46 kg Chair Green Work Phone: [facility] 03-09-2023 08:26-0400 Diastolic blood pressure 48 mm[Hg] Chair Green Work Phone: [facility] 03-09-2023 08:26-0400 Heart rate 66 /min Chair Green Work Phone: [facility] 03-09-2023 08:26-0400 Respiratory rate 18 /min Chair Green Work Phone: [facility] 03-09-2023 08:26-0400 Systolic blood pressure 100 mm[Hg] Chair Green Work Phone: [facility] 02-17-2023 08:36-0400 Body temperature 98.2 [degF] Chair Green Work Phone: [facility] 02-17-2023 08:36-0400 Diastolic blood pressure 57 mm[Hg] Chair Green Work Phone: [facility] 02-17-2023 08:36-0400 Heart rate 74 /min Chair Green Work Phone: [facility] 02-17-2023 08:36-0400 Systolic blood pressure 105 mm[Hg] Chair Green Work Phone: [facility] 02-16-2023 08:23-0400 Body temperature 97.7 [degF] Chair Green Work Phone: [facility] 02-16-2023 08:23-0400 Body weight 78.56 kg Chair Green Work Phone: [facility] 02-16-2023 08:23-0400 Diastolic blood pressure 82 mm[Hg] Chair Green Work Phone: [facility] 02-16-2023 08:23-0400 Heart rate 53 /min Chair Green Work Phone: [facility] 02-16-2023 08:23-0400 SaO2% (BldA) [Mass fraction] 100 % Chair Green Work Phone: [facility] 02-16-2023 08:23-0400 Systolic blood pressure 128 mm[Hg] Chair Green Work Phone: [facility] 02-13-2023 08:23-0400 Body temperature 97.7 [degF] Chair Green Work Phone: [facility] 02-13-2023 08:23-0400 Diastolic blood pressure 71 mm[Hg] Chair Green Work Phone: [facility] 02-13-2023 08:23-0400 Heart rate 72 /min Chair Green Work Phone: [facility] 02-13-2023 08:23-0400 Respiratory rate 18 /min Chair Green Work Phone: [facility] 02-13-2023 08:23-0400 Systolic blood pressure 127 mm[Hg] Chair Green Work Phone: [facility] 02-12-2023 08:52-0400 Body temperature 97.9 [degF] Chair Green Work Phone: [facility] 02-12-2023 08:52-0400 Diastolic blood pressure 72 mm[Hg] Chair Green Work Phone: [facility] 02-12-2023 08:52-0400 Heart rate 18 /min Chair Green Work Phone: [facility] 02-12-2023 08:52-0400 Systolic blood pressure 140 mm[Hg] Chair Green Work Phone: [facility] 02-11-2023 08:30-0400 Body temperature 97.9 [degF] Chair Green Work Phone: [facility] 02-11-2023 08:30-0400 Diastolic blood pressure 54 mm[Hg] Chair Green Work Phone: [facility] 02-11-2023 08:30-0400 Heart rate 53 /min Chair Green Work Phone: [facility] 02-11-2023 08:30-0400 Respiratory rate 16 /min Chair Green Work Phone: [facility] 02-11-2023 08:30-0400 Systolic blood pressure 112 mm[Hg] Chair Green Work Phone: [facility] 02-10-2023 08:32-0400 Body temperature 98.29 [degF] Chair Green Work Phone: [facility] 02-10-2023 08:32-0400 Diastolic blood pressure 63 mm[Hg] Chair Green Work Phone: [facility] 02-10-2023 08:32-0400 Heart rate 80 /min Chair Green Work Phone: [facility] 02-10-2023 08:32-0400 Respiratory rate 16 /min Chair Green Work Phone: [facility] 02-10-2023 08:32-0400 Systolic blood pressure 96 mm[Hg] Chair Green Work Phone: [facility] 02-09-2023 08:26-0400 Body temperature 97.9 [degF] Bed Green Work Phone: [facility] 02-09-2023 08:26-0400 Body weight 81.74 kg Bed Green Work Phone: [facility] 02-09-2023 08:26-0400 Diastolic blood pressure 82 mm[Hg] Bed Green Work Phone: [facility] 02-09-2023 08:26-0400 Heart rate 83 /min Bed Green Work Phone: [facility] 02-09-2023 08:26-0400 Respiratory rate 18 /min Bed Green Work Phone: [facility] 02-09-2023 08:26-0400 Systolic blood pressure 127 mm[Hg] Bed Green Work Phone: [facility] 02-04-2023 11:23-0400 Body temperature 97 [degF] Randa Sindel DO Work Phone: [facility] 02-04-2023 11:23-0400 Body weight 78.56 kg Randa Sindel DO Work Phone: [facility] 02-04-2023 11:23-0400 Diastolic blood pressure 57 mm[Hg] Randa Sindel DO Work Phone: [facility] 02-04-2023 11:23-0400 Heart rate 80 /min Randa Sindel DO Work Phone: [facility] 02-04-2023 11:23-0400 SaO2% (BldA) [Mass fraction] 98 % Randa Sindel DO Work Phone: [facility] 02-04-2023 11:23-0400 Systolic blood pressure 131 mm[Hg] Randa Sindel DO Work Phone: [facility] 01-19-2023 08:32-0400 Body temperature 98.6 [degF] Chair Green Work Phone: [facility] 01-19-2023 08:32-0400 Body weight 80.02 kg Chair Green Work Phone: [facility] 01-19-2023 08:32-0400 Diastolic blood pressure 73 mm[Hg] Chair Green Work Phone: [facility] 01-19-2023 08:32-0400 Heart rate 80 /min Chair Green Work Phone: [facility] 01-19-2023 08:32-0400 Respiratory rate 18 /min Chair Green Work Phone: [facility] 01-19-2023 08:32-0400 Systolic blood pressure 124 mm[Hg] Chair Green Work Phone: [facility] 01-16-2023 08:30-0500 Body temperature 97.9 [degF] Chair Green Work Phone: [facility] 01-16-2023 08:30-0500 Diastolic blood pressure 47 mm[Hg] Chair Green Work Phone: [facility] 01-16-2023 08:30-0500 Heart rate 80 /min Chair Green Work Phone: [facility] 01-16-2023 08:30-0500 Respiratory rate 16 /min Chair Green Work Phone: [facility] 01-16-2023 08:30-0500 Systolic blood pressure 120 mm[Hg] Chair Green Work Phone: [facility] 01-15-2023 08:33-0500 Body temperature 98.1 [degF] Chair Green Work Phone: [facility] 01-15-2023 08:33-0500 Diastolic blood pressure 44 mm[Hg] Chair Green Work Phone: [facility] 01-15-2023 08:33-0500 Heart rate 96 /min Chair Green Work Phone: [facility] 01-15-2023 08:33-0500 Respiratory rate 16 /min Chair Green Work Phone: [facility] 01-15-2023 08:33-0500 Systolic blood pressure 105 mm[Hg] Chair Green Work Phone: [facility] 01-14-2023 08:34-0500 Body temperature 98.2 [degF] Chair Green Work Phone: [facility] 01-14-2023 08:34-0500 Body weight 81.2 kg Chair Green Work Phone: [facility] 01-14-2023 08:34-0500 Diastolic blood pressure 58 mm[Hg] Chair Green Work Phone: [facility] 01-14-2023 08:34-0500 Heart rate 85 /min Chair Green Work Phone: [facility] 01-14-2023 08:34-0500 Respiratory rate 20 /min Chair Green Work Phone: [facility] 01-14-2023 08:34-0500 Systolic blood pressure 99 mm[Hg] Chair Green Work Phone: [facility] 01-13-2023 11:05-0500 Body height 167.6 cm Iram Johnson TOOL ROOM SUPERVISOR.TUMOR REGISTRAR Work Phone: [facility] 01-13-2023 11:05-0500 Body weight 81.19 kg Iram Johnson TOOL ROOM SUPERVISOR.TUMOR REGISTRAR Work Phone: [facility] 01-13-2023 11:05-0500 Diastolic blood pressure 72 mm[Hg] Iram Johnson TOOL ROOM SUPERVISOR.TUMOR REGISTRAR Work Phone: [facility] 01-13-2023 11:05-0500 Heart rate 64 /min Iram Johnson TOOL ROOM SUPERVISOR.TUMOR REGISTRAR Work Phone: [facility] 01-13-2023 11:05-0500 Systolic blood pressure 110 mm[Hg] Iram Johnson TUMOR REGISTRAR Work Phone: [facility] 01-13-2023 08:37-0500 Body temperature 97.9 [degF] Chair Green Work Phone: [facility] 01-13-2023 08:37-0500 Diastolic blood pressure 72 mm[Hg] Chair Green Work Phone: [facility] 01-13-2023 08:37-0500 Heart rate 99 /min Chair Green Work Phone: [facility] 01-13-2023 08:37-0500 Respiratory rate 20 /min Chair Green Work Phone: [facility] 01-13-2023 08:37-0500 Systolic blood pressure 120 mm[Hg] Chair Green Work Phone: [facility] 01-13-2023 08:33-0500 Body weight 81.33 kg Chair Green Work Phone: [facility] 01-12-2023 08:34-0500 Body temperature 98.1 [degF] Bed Green Work Phone: [facility] 01-12-2023 08:34-0500 Body weight 81.28 kg Bed Green Work Phone: [facility] 01-12-2023 08:34-0500 Diastolic blood pressure 69 mm[Hg] Bed Green Work Phone: [facility] 01-12-2023 08:34-0500 Heart rate 89 /min Bed Green Work Phone: [facility] 01-12-2023 08:34-0500 Respiratory rate 16 /min Bed Green Work Phone: [facility] 01-12-2023 08:34-0500 Systolic blood pressure 123 mm[Hg] Bed Green Work Phone: [facility] 12-22-2022 15:00-0500 Body temperature 97.5 [degF] Chair Green Work Phone: [facility] 12-22-2022 15:00-0500 Body weight 77.47 kg Chair Green Work Phone: [facility] 12-22-2022 15:00-0500 Diastolic blood pressure 50 mm[Hg] Chair Green Work Phone: [facility] 12-22-2022 15:00-0500 Heart rate 85 /min Chair Green Work Phone: [facility] 12-22-2022 15:00-0500 Systolic blood pressure 103 mm[Hg] Chair Green Work Phone: [facility] 2022 15:22-0500 Body temperature 97.7 [degF] Chair Green Work Phone: [facility] 2022 15:22-0500 Diastolic blood pressure 65 mm[Hg] Chair Green Work Phone: [facility] 2022 15:22-0500 Heart rate 80 /min Chair Green Work Phone: [facility] 2022 15:22-0500 Respiratory rate 16 /min Chair Green Work Phone: [facility] 2022 15:22-0500 Systolic blood pressure 117 mm[Hg] Chair Green Work Phone: [facility] 12-15-2022 08:31-0500 Body temperature 97.7 [degF] Bed Green Work Phone: [facility] 12-15-2022 08:31-0500 Body weight 80.29 kg Bed Green Work Phone: [facility] 12-15-2022 08:31-0500 Diastolic blood pressure 66 mm[Hg] Bed Green Work Phone: [facility] 12-15-2022 08:31-0500 Heart rate 84 /min Bed Green Work Phone: [facility] 12-15-2022 08:31-0500 Respiratory rate 16 /min Bed Green Work Phone: [facility] 12-15-2022 08:31-0500 Systolic blood pressure 111 mm[Hg] Bed Green Work Phone: [facility] 12-11-2022 16:26-0500 Body height 170.2 cm Israel Tirmonia DO Work Phone: [facility] 12-11-2022 16:26-0500 Body temperature 97.9 [degF] Israel Tirmonia DO Work Phone: [facility] 12-11-2022 16:26-0500 Body weight 77.84 kg Israel Tirmonia DO Work Phone: [facility] 12-11-2022 16:26-0500 Diastolic blood pressure 70 mm[Hg] Sirael Jovannymonia DO Work Phone: [facility] 12-11-2022 16:26-0500 Heart rate 66 /min Israel Tirmonia DO Work Phone: [facility] 12-11-2022 16:26-0500 Respiratory rate 16 /min Israel Tirmonia DO Work Phone: [facility] 12-11-2022 16:26-0500 SaO2% (BldA) [Mass fraction] 98 % Israel Tirmonia DO Work Phone: [facility] 12-11-2022 16:26-0500 Systolic blood pressure 110 mm[Hg] Israel Pettymonia DO Work Phone: [facility] 12-05-2022 11:00-0500 Diastolic blood pressure 71 mm[Hg] Manjeet Butler MD Work Phone: [facility] 12-05-2022 11:00-0500 Heart rate 90 /min Manjeet uBtler MD Work Phone: [facility] 12-05-2022 11:00-0500 Respiratory rate 15 /min Manjeet Butler MD Work Phone: [facility] 12-05-2022 11:00-0500 SaO2% (BldA) [Mass fraction] 96 % Manjeet Butler MD Work Phone: [facility] 12-05-2022 11:00-0500 Systolic blood pressure 118 mm[Hg] Manjeet Butler MD Work Phone: [facility] 12-04-2022 09:08-0500 Body height 170.2 cm Skye Mas TOOL ROOM SUPERVISOR.TUMOR REGISTRAR Work Phone: [facility] 12-04-2022 09:08-0500 Body weight 77.11 kg Skye Mas TOOL ROOM SUPERVISOR.TUMOR REGISTRAR Work Phone: [facility] 12-04-2022 09:08-0500 Diastolic blood pressure 72 mm[Hg] Skye Mas TOOL ROOM SUPERVISOR.TUMOR REGISTRAR Work Phone: [facility] 12-04-2022 09:08-0500 Heart rate 82 /min Skye Mas TOOL ROOM SUPERVISOR.TUMOR REGISTRAR Work Phone: [facility] 12-04-2022 09:08-0500 SaO2% (BldA) [Mass fraction] 96 % Skye Mas TOOL ROOM SUPERVISOR.TUMOR REGISTRAR Work Phone: [facility] 12-04-2022 09:08-0500 Systolic blood pressure 116 mm[Hg] Skye Mas TOOL ROOM SUPERVISOR.TUMOR REGISTRAR Work Phone: [facility] 11-26-2022 11:09-0500 Body temperature 97.3 [degF] Randa Sindel DO Work Phone: [facility] 11-26-2022 11:09-0500 Body weight 76.02 kg Randa Sindel DO Work Phone: [facility] 11-26-2022 11:09-0500 Diastolic blood pressure 57 mm[Hg] Randa Sindel DO Work Phone: [facility] 11-26-2022 11:09-0500 Heart rate 84 /min Randa Sindel DO Work Phone: [facility] 11-26-2022 11:09-0500 SaO2% (BldA) [Mass fraction] 96 % Randa Sindel DO Work Phone: [facility] 11-26-2022 11:09-0500 Systolic blood pressure 104 mm[Hg] Randa Sindel DO Work Phone: [facility] 11-05-2022 11:10-0500 Body height 170.2 cm Randa Sindel DO Work Phone: [facility] 11-05-2022 11:10-0500 Body temperature 97.3 [degF] Randa Sindel DO Work Phone: [facility] 11-05-2022 11:10-0500 Body weight 80.02 kg Randa Sindel DO Work Phone: [facility] 11-05-2022 11:10-0500 Diastolic blood pressure 53 mm[Hg] Randa Sindel DO Work Phone: [facility] 11-05-2022 11:10-0500 Heart rate 89 /min Randa Sindel DO Work Phone: [facility] 11-05-2022 11:10-0500 SaO2% (BldA) [Mass fraction] 92 % Randa Sindel DO Work Phone: [facility] 11-05-2022 11:10-0500 Systolic blood pressure 106 mm[Hg] Randa Sindel DO Work Phone: [facility] 10-24-2022 13:00-0500 Diastolic blood pressure 59 mm[Hg] Jesus Manuel White MD, MD Work Phone: [facility] 10-24-2022 13:00-0500 SaO2% (BldA) [Mass fraction] 100 % Jesus Manuel White MD, MD Work Phone: [facility] 10-24-2022 13:00-0500 Systolic blood pressure 89 mm[Hg] Jesus Manuel White MD, MD Work Phone: [facility] 10-24-2022 12:45-0500 Heart rate 75 /min Jesus Manuel White MD, MD Work Phone: [facility] 10-24-2022 12:40-0500 Respiratory rate 15 /min Jesus Manuel White MD, MD Work Phone: [facility] 10-24-2022 11:11-0500 Body temperature 97.2 [degF] Jesus Manuel White MD, Work Phone: [facility] 10-16-2022 14:00-0500 Body height 170.2 cm Tara Ángel TOOL ROOM SUPERVISOR.TUMOR REGISTRAR Work Phone: [facility] 10-16-2022 14:00-0500 Body weight 76.57 kg Tara Ángel TOOL ROOM SUPERVISOR.TUMOR REGISTRAR Work Phone: [facility] 10-16-2022 14:00-0500 Diastolic blood pressure 40 mm[Hg] Tara Oakdale TOOL ROOM SUPERVISOR.TUMOR REGISTRAR Work Phone: [facility] 10-16-2022 14:00-0500 Heart rate 64 /min Tara Ángel TOOL ROOM SUPERVISOR.TUMOR REGISTRAR Work Phone: [facility] 10-16-2022 14:00-0500 Respiratory rate 18 /min Tara Oakdale TOOL ROOM SUPERVISOR.TUMOR REGISTRAR Work Phone: [facility] 10-16-2022 14:00-0500 SaO2% (BldA) [Mass fraction] 100 % Tara Ángel TOOL ROOM SUPERVISOR.TUMOR REGISTRAR Work Phone: [facility] 10-16-2022 14:00-0500 Systolic blood pressure 120 mm[Hg] Tara Oakdale TOOL ROOM SUPERVISOR.TUMOR REGISTRAR Work Phone: [facility] 10-09-2022 10:43-0500 Body height 170.2 cm Randa Sindel DO Work Phone: [facility] 10-09-2022 10:43-0500 Body temperature 97.2 [degF] Randa Sindel DO Work Phone: [facility] 10-09-2022 10:43-0500 Body weight 75.48 kg Randa Sindel DO Work Phone: [facility] 10-09-2022 10:43-0500 Diastolic blood pressure 60 mm[Hg] Randa Sindel DO Work Phone: [facility] 10-09-2022 10:43-0500 Heart rate 92 /min Randa Sindel DO Work Phone: [facility] 10-09-2022 10:43-0500 SaO2% (BldA) [Mass fraction] 98 % Randa Sindel DO Work Phone: [facility] 10-09-2022 10:43-0500 Systolic blood pressure 110 mm[Hg] Randa Sindel DO Work Phone: [facility] 10-01-2022 11:44-0500 Body height 170.2 cm Device [place] Work Phone: [facility] 10-01-2022 11:44-0500 Body temperature 98.2 [degF] Device [place] Work Phone: [facility] 10-01-2022 11:44-0500 Body weight 74.84 kg Device [place] Work Phone: [facility] 10-01-2022 11:44-0500 Diastolic blood pressure 60 mm[Hg] Device [place] Work Phone: [facility] 10-01-2022 11:44-0500 Heart rate 83 /min Device [place] Work Phone: [facility] 10-01-2022 11:44-0500 Respiratory rate 20 /min Device [place] Work Phone: [facility] 10-01-2022 11:44-0500 SaO2% (BldA) [Mass fraction] 96 % Device [place] Work Phone: [facility] 10-01-2022 11:44-0500 Systolic blood pressure 112 mm[Hg] Device [place] Work Phone: [facility] 09-25-2022 11:18-0500 Body height 171.7 cm Israel Pruitt DO Work Phone: [facility] 09-25-2022 11:18-0500 Body temperature 97.39 [degF] Israel Pruitt DO Work Phone: [facility] 09-25-2022 11:18-0500 Body weight 78.2 kg Israel Tirmonia DO Work Phone: [facility] 09-25-2022 11:18-0500 Diastolic blood pressure 60 mm[Hg] Israel Tirmonia DO Work Phone: [facility] 09-25-2022 11:18-0500 Heart rate 73 /min Israel Tirmonia DO Work Phone: [facility] 09-25-2022 11:18-0500 SaO2% (BldA) [Mass fraction] 96 % Israel Tirmonia DO Work Phone: [facility] 09-25-2022 11:18-0500 Systolic blood pressure 114 mm[Hg] Israel Tirmonia DO Work Phone: [facility] 09-11-2022 15:45-0400 Body height 171.7 cm Israel Tirmonia DO Work Phone: [facility] 09-11-2022 15:45-0400 Body temperature 98.29 [degF] Israel Tirmonia DO Work Phone: [facility] 09-11-2022 15:45-0400 Body weight 78.56 kg Israel Tirmonia DO Work Phone: [facility] 09-11-2022 15:45-0400 Diastolic blood pressure 56 mm[Hg] Israel Tirmonia DO Work Phone: [facility] 09-11-2022 15:45-0400 Heart rate 49 /min Israel Tirmonia DO Work Phone: [facility] 09-11-2022 15:45-0400 SaO2% (BldA) [Mass fraction] 97 % Israel Tirmonia DO Work Phone: [facility] 09-11-2022 15:45-0400 Systolic blood pressure 102 mm[Hg] Israel Tirmonia DO Work Phone: [facility] 07-24-2022 10:44-0400 Body height 171.7 cm Israel Tirmonia DO Work Phone: [facility] 07-24-2022 10:44-0400 Body temperature 97.5 [degF] Israel Pruitt DO Work Phone: [facility] 07-24-2022 10:44-0400 Body weight 80.38 kg Israel Pettymonia DO Work Phone: [facility] 07-24-2022 10:44-0400 Diastolic blood pressure 60 mm[Hg] Israel Pettymonia DO Work Phone: [facility] 07-24-2022 10:44-0400 Heart rate 67 /min Israel Pettymonia DO Work Phone: [facility] 07-24-2022 10:44-0400 SaO2% (BldA) [Mass fraction] 97 % Israel Gerberia DO Work Phone: [facility] 07-24-2022 10:44-0400 Systolic blood pressure 110 mm[Hg] Israel Pettymonia DO Work Phone: [facility] 07-17-2022 11:05-0400 Body height 172.7 cm Rosa Gonzalez PA-C Work Phone: [facility] 07-17-2022 11:05-0400 Body weight 82.01 kg Rosa Gonzalez PA-C Work Phone: [facility] 07-17-2022 11:05-0400 Diastolic blood pressure 43 mm[Hg] Rosa Gonzalez PA-C Work Phone: [facility] 07-17-2022 11:05-0400 Heart rate 68 /min Rosa Gonzalez PA-C Work Phone: [facility] 07-17-2022 11:05-0400 Respiratory rate 18 /min Rosa Gonzalez PA-C Work Phone: [facility] 07-17-2022 11:05-0400 SaO2% (BldA) [Mass fraction] 98 % Rosa Gonzalez PA-C Work Phone: [facility] 07-17-2022 11:05-0400 Systolic blood pressure 118 mm[Hg] Rosa Gonzalez PA-C Work Phone: [facility] 06-10-2022 11:23-0400 Body height 172.7 cm Iram Johnson TOOL ROOM SUPERVISOR.TUMOR REGISTRAR Work Phone: [facility] 06-10-2022 11:23-0400 Body weight 93.89 kg Iram Johnson TOOL ROOM SUPERVISOR.TUMOR REGISTRAR Work Phone: [facility] 06-10-2022 11:23-0400 Diastolic blood pressure 78 mm[Hg] Iram Johnson TOOL ROOM SUPERVISOR.TUMOR REGISTRAR Work Phone: [facility] 06-10-2022 11:23-0400 Heart rate 65 /min Iram Johnson TOOL ROOM SUPERVISOR.TUMOR REGISTRAR Work Phone: [facility] 06-10-2022 11:23-0400 Systolic blood pressure 128 mm[Hg] Iram Johnson TOOL ROOM SUPERVISOR.TUMOR REGISTRAR Work Phone: [facility] 05-29-2022 14:56-0400 Body height 172.7 cm Israel Tirmonia DO Work Phone: [facility] 05-29-2022 14:56-0400 Body temperature 97.5 [degF] Israel Tirmonia DO Work Phone: [facility] 05-29-2022 14:56-0400 Body weight 93.89 kg Israel Tirmonia DO Work Phone: [facility] 05-29-2022 14:56-0400 Diastolic blood pressure 64 mm[Hg] Israel Tirmonia DO Work Phone: [facility] 05-29-2022 14:56-0400 Heart rate 70 /min Israel Tirmonia DO Work Phone: [facility] 05-29-2022 14:56-0400 SaO2% (BldA) [Mass fraction] 99 % Israel Tirmonia DO Work Phone: [facility] 05-29-2022 14:56-0400 Systolic blood pressure 110 mm[Hg] Israel Tirmonia DO Work Phone: [facility] 05-08-2022 13:08-0400 Body weight 90.17 kg Laron Fortune PA-C Work Phone: [facility] 05-08-2022 13:08-0400 Diastolic blood pressure 53 mm[Hg] Laron Fortune PA-C Work Phone: [facility] 05-08-2022 13:08-0400 Heart rate 64 /min Laron Fortune PA-C Work Phone: [facility] 05-08-2022 13:08-0400 SaO2% (BldA) [Mass fraction] 97 % Laron Fortune PA-C Work Phone: [facility] 05-08-2022 13:08-0400 Systolic blood pressure 137 mm[Hg] Laron Fortune PA-C Work Phone: [facility] 03-21-2022 13:15-0400 Body height 167.6 cm Guillerminakarey Cummings TOOL ROOM SUPERVISOR.TUMOR REGISTRAR Work Phone: [facility] 03-21-2022 13:15-0400 Body weight 91.44 kg Guillermina Sylviawood TOOL ROOM SUPERVISOR.TUMOR REGISTRAR Work Phone: [facility] 03-21-2022 13:15-0400 Diastolic blood pressure 52 mm[Hg] Guillermina Sylviawood TOOL ROOM SUPERVISOR.TUMOR REGISTRAR Work Phone: [facility] 03-21-2022 13:15-0400 Heart rate 70 /min Gulilermina Tamara TOOL ROOM SUPERVISOR.TUMOR REGISTRAR Work Phone: [facility] 03-21-2022 13:15-0400 SaO2% (BldA) [Mass fraction] 97 % Guillermina Sylviawood TOOL ROOM SUPERVISOR.TUMOR REGISTRAR Work Phone: [facility] 03-21-2022 13:15-0400 Systolic blood pressure 131 mm[Hg] Guillermina Ellwood TOOL ROOM SUPERVISOR.TUMOR REGISTRAR Work Phone: [facility] 03-18-2022 10:16-0400 Body weight 90.27 kg Israel Pruitt DO Work Phone: [facility] 03-18-2022 10:16-0400 Diastolic blood pressure 80 mm[Hg] Israel Pruitt DO Work Phone: [facility] 03-18-2022 10:16-0400 Systolic blood pressure 168 mm[Hg] Israel Pruitt DO Work Phone: [facility] 02-26-2022 14:51-0400 Body height 170.2 cm Guillermina Sylviawood TOOL ROOM SUPERVISOR.TUMOR REGISTRAR Work Phone: [facility] 02-26-2022 14:51-0400 Body weight 88.45 kg Guillermina Sylviawood TOOL ROOM SUPERVISOR.TUMOR REGISTRAR Work Phone: [facility] 02-26-2022 14:51-0400 Diastolic blood pressure 60 mm[Hg] Guillerminakarey Wardwood TOOL ROOM SUPERVISOR.TUMOR REGISTRAR Work Phone: [facility] 02-26-2022 14:51-0400 Heart rate 65 /min Guillerminakarey Cummings TOOL ROOM SUPERVISOR.TUMOR REGISTRAR Work Phone: [facility] 02-26-2022 14:51-0400 SaO2% (BldA) [Mass fraction] 94 % Guillerminakarey Cummings TOOL ROOM SUPERVISOR.TUMOR REGISTRAR Work Phone: [facility] 02-26-2022 14:51-0400 Systolic blood pressure 120 mm[Hg] Guillerminakarey Cummings TOOL ROOM SUPERVISOR.TUMOR REGISTRAR Work Phone: [facility] NEGATED: Highlighted [id number] 10:40-0500 BMI (Body Mass Index) 36.74 kg/m2 Bettye Codey PERINATAL EDUCATOR [facility] Work Phone: NEGATED: Highlighted [id number] 10:40-0500 Body weight 99.79 kg Bettye Codey PERINATAL EDUCATOR [facility] Work Phone: NEGATED: Highlighted [id number] 10:40-0500 Body weight 100 kg Bettye Codey PERINATAL EDUCATOR [facility] Work Phone: NEGATED: Highlighted [id number] 10:40-0500 BP Diastolic 0 mm[Hg] Bettye Codey PERINATAL EDUCATOR [facility] Work Phone: NEGATED: Highlighted [id number] 10:40-0500 BP Systolic 0 mm[Hg] Bettye Codey PERINATAL EDUCATOR [facility] Work Phone: NEGATED: Highlighted [id number] 10:40-0500 Heart rate 2+ Bettye Codey PERINATAL EDUCATOR [facility] Work Phone: NEGATED: Highlighted [id number] 10:40-0500 Heart rate Bettye Codey PERINATAL EDUCATOR [facility] Work Phone: NEGATED: Highlighted [id number] 10:40-0500 Height 165.1 cm Bettye Codey PERINATAL EDUCATOR [facility] Work Phone: NEGATED: Highlighted [id number] 10:40-0500 Height 165 cm Bettye Codey PERINATAL EDUCATOR [facility] Work Phone: Encounters Encounter Date Encounter Type Care Provider Facility Start: 06-23-2025 Evaluation and manag ement of inpatient Dr. Mary Prather MD -Medical Surgical 3 Work Phone: Start: 06-23-2025 Emergency department patient visit Dr. 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); Chronic heart failure with preserved ejection fraction (HCC) Start: 06-21-2025 End: 06-21-2025 Office outpatient visit 25 minutes Ronaldo Pleitez MD Work Phone: [facility] [place] Comment on above: Cellulitis of left l eg (Primary Dx); Lymphedema of both lower extremities; 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, unspecified acute renal failure type (HCC); 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 Ned sinclair MD -[facility] Start: 06-19-2025 End: 06-19-[address] Bryanna Tijerina MD -[facility] Work Phone: Start: 06-19-2025 End: 06-19-2025 ambulatory Ronaldo [place]itez [place] [place]: 06-18-2025 End: 06-19-2025 Emergency department patient visit Dr. 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); MDS (myelodysplastic syndrome) (HCC) Start: 06-05-2025 End: 06-05-2025 Office outpatient visit 15 minutes Arabella Moreno APRN.TUMOR REGISTRAR Work Phone: [facility] [place] Comment on above: Cellulitis of left u pper arm (Primary Dx); Multiple skin tears; Lymphedema of both lower extremities; Chronic heart failure with preserved ejection fraction (HCC) Start: 06-05-2025 End: 06-05-2025 ambulatory ARABELLA MORENO Facility:[facility] Start: 05-30-2025 End: 05-30-2025 ambulatory ARABELLA MORENO Facility:[facility] Start: 05-30-2025 End: 05-30-2025 Office outpatient visit 15 minutes Arabella Moreno APRN.TUMOR REGISTRAR Work Phone: [facility] [place] Comment on above: Cellulitis of left u pper arm (Primary Dx); Multiple skin tears; senior care (current) use of anticoagulants Start: 05-26-2025 End: 05-26-2025 Telephone encounter Arabella Moreno APRN.CNP Work Phone: [facility] [place] Start: 05-26-2025 End: 05-26-2025 [facility] Work [facility]: [facility] Comment on above: 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) (Primary Dx); 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); MDS (myelodysplastic syndrome) (HCC) Start: 05-25-2025 End: 05-25-2025 Office outpatient visit 25 minutes Arabella Moreno APRN.TUMOR REGISTRAR Work Phone: [facility] [place] Comment on above: Multiple skin tears (Primary Dx); senior care (current) use of anticoagulants Start: 05-25-2025 End: 05-25-2025 ambulatory ARABELLA MORENO Facility:[facility] Start: 05-22-2025 End: 05-23-2025 Telephone encounter Ronaldo Pleitez MD Work Phone: [facility] [place] Comment on above: Patient Update Start: 05-11-2025 End: 05-11-2025 ambulatory Injection [facility] Work Phone: Hematology/Oncology Comment on above: 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) (Primary Dx); 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); MDS (myelodysplastic syndrome) (HCC) Start: 05-05-2025 End: 05-08-2025 Telephone encounter Ronaldo Pleitez MD Work Phone: [facility] [place] Comment on above: Patient Update Start: 04-28-2025 End: 04-28-2025 ambulatory Injection Shaun [facility] Work Phone: Hematology/Oncology Comment on above: 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) (Primary Dx); 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); MDS (myelodysplastic syndrome) (HCC) Start: 04-14-2025 End: 04-25-2025 Follow-up encounter Ronaldo Pleitez MD Work Phone: [facility] [place] Start: 04-14-2025 End: 04-14-2025 ambulatory Injection Shaun [facility] Work Phone: Hematology/Oncology Comment on above: 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) (Primary Dx) Start: 04-07-2025 End: 04-07-2025 Patient encounter procedure Iram Johnson TOOL ROOM SUPERVISOR.TUMOR REGISTRAR Work Phone: [facility] EPS [phone] Comment on above: Benign hypertension (Primary Dx); 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; Mixed hyperlipidemia; Pacemaker; CHB (complete heart block) (HCC); Chronic atrial fibrillation (HCC); 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 Start: 04-07-2025 End: 04-07-2025 ambulatory IRAM JOHNSON Facility:[id number] Start: 04-05-2025 End: 04-06-2025 Telephone encounter Ronaldo Pleitez MD Work Phone: [facility] [place] Comment on above: Patient Question Start: 03-31-2025 End: 03-31-2025 ambulatory BALJINDER GALLOWAY Facility:[facility] Start: 03-28-2025 ambulatory RONALDO PLEITEZ Facjason lity:[facility] Start: 03-27-2025 End: 03-27-2025 Office outpatient visit 25 minutes Ronaldo Pleitez MD Work Phone: [facility] [place] Comment on above: Lymphedema of right lower extremity (Primary Dx); Lymphedema of both lower extremities Start: 03-27-2025 End: 03-27-2025 ambulatory RONALDO PLEITEZ Facility:[facility] Start: 03-17-2025 End: 04-24-2025 Telephone encounter Baljinder Galloway DO Work Phone: Hematology/Oncology Comment on above: Appointment Start: 03-17-2025 End: 03-17-2025 ambulatory Injection Sha[facility] Work Phone: Hematology/Oncology Comment on above: 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) (Primary Dx); 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); MDS (myelodysplastic syndrome) (HCC) Start: 03-03-2025 End: 03-03-2025 ambulatory BALJINDER GALLOWAY Facility:[facility] Start: 02-17-2025 End: 02-17-2025 ambulatory Injection [facility] Work Phone: Hematology/Oncology Comment on above: 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) (Primary Dx); 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); MDS (myelodysplastic syndrome) (HCC) Start: 02-03-2025 End: 02-03-2025 ambulatory Injection [facility] Work Phone: Hematology/Oncology Comment on above: 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) (Primary Dx); 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); MDS (myelodysplastic syndrome) (HCC) Start: 01-31-2025 End: 01-31-2025 ambulatory ARABELLA MORENO Facility:[facility] Start: 01-31-2025 End: 01-31-2025 Patient encounter procedure Arabella Moreno TOOL ROOM SUPERVISOR.TUMOR REGISTRAR Work Phone: [facility] [place] Comment on above: Medicare annual well ness visit, subsequent (Primary Dx); Lymphedema of both lower extremities; Chronic heart failure with preserved ejection fraction (HCC); Primary hypertension; Hypothyroidism, unspecified type; Constipation due to slow transit Start: 01-20-2025 End: 01-23-2025 Follow-up encounter Ronaldo Pleitez MD Work Phone: [facility] [place] Start: 01-20-2025 End: 01-20-2025 ambulatory Injection [facility] Work Phone: Hematology/Oncology Comment on [...] Start: 01-06-2025 End: 01-06-2025 ambulatory Injection [facility] Work Phone: Hematology/Oncology Comment on above: 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) (HCC) (Primary Dx); 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); MDS (myelodysplastic syndrome) (HCC) Start: 12-30-2024 End: 12-30-2024 Patient encounter procedure [facility] Device [address] Cardiology Comment on above: Encounter for care o f pacemaker (Primary Dx) Start: 12-30-2024 End: 12-30-2024 ambulatory RONALDO PLEITEZ Facility:[id number] Start: 12-23-2024 End: 12-23-2024 ambulatory Injection [facility] Work Phone: Hematology/Oncology Comment on above: 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) (HCC) (Primary Dx); 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); MDS (myelodysplastic syndrome) (HCC) Refill Request Start: 12-09-2024 End: 12-09-2024 ambulatory Injection [facility] Work Phone: Hematology/Oncology Comment on above: 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) (HCC) (Primary Dx); 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); MDS (myelodysplastic syndrome) (HCC) Start: 11-24-2024 End: 11-24-2024 ambulatory Injection [facility] Work Phone: Hematology/Oncology Comment on above: 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) (HCC) (Primary Dx); 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); MDS (myelodysplastic syndrome) (HCC) Start: 11-16-2024 End: 11-18-2024 Telephone encounter Baljinder Galloway DO Work Phone: Hematology/Oncology Comment on above: Results Start: 11-15-2024 End: 11-15-2024 ambulatory BALJINDER GALLOWAY Facility:[facility] Start: 10-14-2024 End: 10-14-2024 Telephone encounter Ronaldo Pleitez MD Work Phone: [facility] [place] Comment on above: Dental surgeon efrem bear Start: 10-13-2024 End: 10-13-2024 Telephone encounter Iram Johnson APRN.TUMOR REGISTRAR Work Phone: [facility] Cardiology Comment on above: Results; Patient Upd ate Start: 10-12-2024 ambulatory Iram Johnson Facility: [facility] Start: 10-11-2024 End: 10-11-2024 Office outpatient visit 25 minutes Baljinder Galloway DO Work Phone: Hematology/Oncology Comment on above: 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); Macrocytic anemia Start: 10-11-2024 End: 10-12-2024 ambulatory Iram Johnson Facility:[facility] Start: 10-10-2024 End: 10-10-2024 Telephone encounter Ronaldo Pleitez MD Work Phone: [facility] [place] Comment on above: short term medicatio n request Start: 10-03-2024 End: 10-03-2024 ambulatory Ginna Em RN Work Phone: Entry Level Management Comment on above: CDM (Telephonic outr each/) Start: 09-27-2024 End: 09-30-2024 Telephone encounter Iram Johnson APRN.TUMOR REGISTRAR Work Phone: [facility] Cardiology Start: 09-27-2024 End: 09-27-2024 Patient encounter procedure Iram Johnson APRN.TUMOR REGISTRAR Work Phone: [facility] Cardiology Comment on above: Benign hypertension (Primary Dx); 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; Mixed hyperlipidemia; Pacemaker; CHB (complete heart block) (HCC); Chronic atrial fibrillation (HCC); senior care current use of anticoagulant; Acute stroke due [...] Start: 09-27-2024 End: 09-27-2024 ambulatory IRAM JOHNSON Facility:[id number] Start: 09-22-2024 End: 09-22-2024 ambulatory BALJINDER GALLOWAY Facility:[facility] Start: 09-15-2024 End: 09-15-2024 Telephone encounter Baljinder Galloway DO Work Phone: Hematology/Oncology Comment on above: Results Start: 09-15-2024 End: 09-15-2024 ambulatory Lauri Cook Work Phone: Hematology/Oncology Comment on above: 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); History of anemia Start: 09-15-2024 End: 09-15-2024 Patient encounter procedure Lauri Cook Work Phone: Hematology/Oncology Start: 08-30-2024 End: 08-30-2024 ambulatory Ginna Em RN Work Phone: Entry Level Management Comment on above: CDM (Telephonic outr each/) Start: 08-24-2024 End: 08-25-2024 Telephone encounter Ronaldo Pleitez MD Work Phone: Internal Medicine [place] Comment on above: Patient Update Start: 08-22-2024 End: 08-22-2024 ambulatory BALJINDER GALLOWAY Facility:[facility] Start: 08-02-2024 End: 08-02-2024 ambulatory Ginna Em RN Work Phone: Entry Level Management Comment on above: CDM (Telephonic outr each/) Start: 07-29-2024 End: 07-29-2024 ambulatory RONALDO PLEITEZ Facility:[facility] Start: 07-29-2024 End: 07-29-2024 Office outpatient visit 25 minutes Ronaldo Pleitez MD Work Phone: Internal Medicine [place] Comment on above: Benign hypertension (Primary Dx); [...] above: Results Start: 07-21-2024 End: 07-21-2024 ambulatory BALJINDER GALLOWAY Facility:[facility] Start: 07-05-2024 End: 07-05-2024 ambulatory Ginna Em RN Work Phone: Entry Level Management Comment on above: CDM (Telephonic outr each/) Start: 07-04-2024 End: 07-04-2024 ambulatory Ginna Em RN Work Phone: Entry Level Management Comment on above: CDM (Telephonic outr each/) Start: 06-17-2024 End: 06-17-2024 Patient encounter procedure [facility] [address] [facility] Cardiology Comment on above: Encounter for care o f pacemaker (Primary Dx) Start: 06-16-2024 End: 06-16-2024 ambulatory Baljinder Galloway DO Work Phone: Hematology/Oncology Comment on above: 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) Start: 06-16-2024 End: 06-16-2024 Patient encounter procedure Baljinder Galloway DO Work Phone: Hematology/Oncology Start: 06-09-2024 ambulatory Ginna packer RN Work Phone: Entry Level Management Comment on above: CDM (Telephonic outr each/) Start: 06-08-2024 ambulatory Ginna packer RN Work Phone: Entry Level Management Comment on above: CDM (Telephonic outr each/) Start: 05-25-2024 ambulatory Eugenia Kraft [facility] Start: 05-25-2024 Patient encounter procedure Eugenia gordon MA [facility] Comment on above: Population Health Na vigation Outreach (Med Adherence ([place])/) Start: 05-11-2024 ambulatory Ginna packer RN Work Phone: Entry Level Management Comment on above: CDM (Telephonic outr each/) Start: 05-10-2024 ambulatory Ginna packer RN Work Phone: Entry Level Management Comment on above: CDM (Telephonic outr each/) Start: 04-12-2024 ambulatory Ginna packer RN Work Phone: Entry Level Management Comment on above: CDM (Telephonic outr each/) Start: 03-17-2024 End: 03-17-2024 ambulatory Baljinder Galloway DO Work Phone: Hematology/Oncology Comment on above: 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) Start: 03-17-2024 End: 03-17-2024 Patient encounter procedure Baljinder Galloway DO Work Phone: Hematology/Oncology Start: 03-16-2024 Orders Only Baljinder Jackson Laverne Harmon Work Phone: Hematology/Oncology Comment on above: 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); Macrocytic anemia Start: 03-15-2024 ambulatory Ginna packer RN Work Phone: Entry Level Management Comment on above: CDM (Telephonic outr each/) Start: 03-14-2024 ambulatory Ginna packer RN Work Phone: Entry Level Management Comment on above: CDM (Telephonic outr each/) Start: 02-29-2024 End: 02-29-2024 Patient encounter procedure Iram Johnson APRN.CNP Work Phone: [facility] Cardiology Comment on above: Benign hypertension (Primary Dx); 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; Mixed hyperlipidemia; Pacemaker; CHB (complete heart block) (HCC); Chronic atrial fibrillation (HCC); senior care current use of anticoagulant Encounter for care o f pacemaker (Primary Dx) Start: 02-20-2024 Telephone encounter Ronaldo strange MD Work Phone: Internal Medicine [place] Comment on above: Results Start: 02-15-2024 ambulatory Ginna packer RN Work Phone: Entry Level Management Comment on above: CDM (Telephonic outr each/) Start: 01-22-2024 End: 01-22-2024 Subsequent hospital visit by physician Fer [facility] [place] Work Phone: Radiology Comment on above: Chronic heart failur e with preserved ejection fraction (HCC) [I50.32] Start: 01-22-2024 End: 01-22-2024 Patient encounter procedure Ronaldo Pleitez MD Work Phone: Internal Medicine [place] Comment on above: Medicare annual well ness visit, subsequent (Primary Dx); Mixed hyperlipidemia; Lymphedema of both lower extremities; Chronic heart failure with preserved ejection fraction (HCC); Hypothyroidism, unspecified type; Primary hypertension; B12 deficiency; Vitamin D deficiency Start: 01-01-2024 ambulatory Ginna packer RN Work Phone: Entry Level Management Comment on above: CDM (Telephonic outr each/) Start: 12-24-2023 Telephone encounter Ronaldo strange MD Work Phone: Internal Medicine [place] Start: 12-24-2023 End: 12-24-2023 ambulatory Baljinder Galloway DO Work Phone: Hematology/Oncology Comment on above: 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); Macrocytic anemia Start: 12-24-2023 End: 12-24-2023 Patient encounter procedure Baljinder Galloway DO Work Phone: [facility] Start: 12-23-2023 End: 12-23-2023 Patient encounter procedure Ronaldo Pleitez MD Work Phone: Internal Medicine [place] Comment on above: Right elbow pain (Pr imary Dx); Monoarthritis of elbow, 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); MDS (myelodysplastic syndrome) (HCC) Start: 12-23-2023 End: 12-23-2023 Subsequent hospital visit by physician X[facility] Work Phone: Radiology Comment on above: Right elbow pain [M2 5.521] Start: 12-21-2023 Telephone encounter aBljinder eric DO Work Phone: Hematology/Oncology Comment on above: Patient Question Start: 12-18-2023 Refill Ronaldo blanton MD Work Phone: Internal Medicine [place] Comment on above: Refill Request Start: 10-07-2023 ambulatory Ginna packer RN Work Phone: Entry Level Management Comment on above: CDM (Telephonic outr each/) Start: 10-02-2023 Refill Israel Pruitt DO Work Phone: Internal Medicine [place] Comment on above: Refill Request Start: 09-30-2023 End: 09-30-2023 ambulatory Baljinder Galloway DO Work Phone: Hematology/Oncology Comment on above: 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); MDS (myelodysplastic syndrome) (HCC) Start: 09-30-2023 End: 09-30-2023 Patient encounter procedure Baljinder Galloway DO Work Phone: [place] [facility] Start: 09-11-2023 Refill Israel Pruitt DO Work Phone: Internal Medicine [place] Comment on above: Refill Request Start: 09-07-2023 ambulatory Ginna packer RN Work Phone: Entry Level Management Comment on above: CDM (Telephonic outr each/) Start: 09-07-2023 Refill Israel Pruitt DO Work Phone: Internal Medicine [place] Comment on above: Refill Request Start: 08-18-2023 Refill Jayashree Farmer APRN.TUMOR REGISTRAR Work Phone: Internal Medicine [place] Comment on above: Refill Request Start: 07-30-2023 Telephone encounter Iram masterson TOOL ROOM SUPERVISOR.TUMOR REGISTRAR Work Phone: [facility] Cardiology Comment on above: Patient Update Start: 07-29-2023 ambulatory Ginna packer RN Work Phone: Entry Level Management Comment on above: CDM (Telephonic outr each/) Start: 07-24-2023 End: 07-24-2023 Patient encounter procedure Arabella Bates TOOL ROOM SUPERVISOR.TUMOR REGISTRAR Work Phone: [facility] Comment on above: Lymphedema of both l ower extremities (Primary Dx); Chronic heart failure with preserved ejection fraction (HCC); Encounter for immunization Start: 07-23-2023 End: 07-23-2023 Patient encounter procedure Iram Johnson TOOL ROOM SUPERVISOR.TUMOR REGISTRAR Work Phone: [facility] Cardiology Comment on above: Chronic atrial fibri llation (HCC) (Primary Dx); Benign hypertension; 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; Mixed hyperlipidemia; senior care current use of anticoagulant; Pacemaker; CHB (complete heart block) (HCC); PVC's (premature ventricular contractions) Encounter for care o f pacemaker (Primary Dx) Start: 07-02-2023 ambulatory Ginna packer RN Work Phone: Entry Level Management Comment on above: CDM (Telephonic outr each/) Start: 06-22-2023 End: 06-22-[address] Pedro Diaz Work Phone: [facility] Work Phone: Start: 06-22-2023 End: 06-22-[address] Pdero Diaz Work Phone: [facility] Start: 06-22-[address] Varsha Diaz Work Phone: [facility] Start: 06-12-2023 End: 06-12-2023 Patient encounter procedure Ronaldo Pleitez MD Work Phone: Internal Medicine [place] Comment on above: Lymphedema of both l ower extremities (Primary Dx); Chronic heart failure with preserved ejection fraction (HCC); PAF (paroxysmal atrial fibrillation) (HCC); 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; 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 ([facility]); History of bacteremia; Generalized osteoarthrosis Start: 06-04-2023 ambulatory Ginna packer RN Work Phone: Entry Level Management Comment on above: CDM (Telephonic outr each/) Start: 05-29-2023 End: 05-29-2023 Subsequent hospital visit by physician Fer [facility] Hussein Work Phone: Radiology Comment on above: Acute cough [R05.1] Start: 05-26-2023 Telephone encounter Israel Pruitt DO Work Phone: Internal Medicine [place] Comment on above: readmit orders Start: 05-25-2023 Refill Israel Pruitt DO Work Phone: Internal Medicine [place] Start: 05-22-2023 Telephone encounter Shorty Faith MD Work Phone: General Surgery Comment on above: Patient Update (Surg ical site ( port removal )) Start: 05-22-2023 End: 05-22-[address] Pedro Diaz Work Phone: [facility]-Medical Out Work Phone: Start: 05-21-2023 End: 05-21-2023 Patient encounter procedure Israel Pruitt DO Work Phone: Internal Medicine [place] Comment on above: Gram-negative bacter emia (Primary [...] / Non-visit Dr. Ronna Diaz Work Phone: [facility] Work Phone: Start: 05-17-2023 Non-patient / Non-visit Dr. Ronna Diaz Work Phone: [facility] Work Phone: Start: 05-16-2023 Non-patient / Non-visit Dr. Ronna Diaz Work Phone: [facility] Work Phone: Start: 05-15-2023 Non-patient / Non-visit Dr. Ronna Diaz Work Phone: [facility] Start: 05-15-2023 Non-patient / Non-visit Dr. Ronna Diaz Work Phone: [facility] [facility] Work Phone: Start: 05-14-2023 End: 05-18-2023 Evaluation and management of inpatient Dr. Ned Dinh Work Phone: [facility]-Progressive Care Unit Work Phone: Start: 05-14-2023 Telephone encounter Ileana Sosa RN He matology/Oncology Comment on above: Sales Representative Supervisor - O ther (Symptoms ) Start: 05-14-2023 Non-patient / Non-visit Dr. Ronna Diaz Work Phone: [facility] Start: 05-13-2023 End: 05-13-2023 ambulatory Treatment 13 [facility] Work Phone: Hematology/Oncology Comment [...] (HCC) Start: 05-11-2023 End: 05-11-2023 ambulatory Treatment 13 [facility] Work Phone: Hematology/Oncology Comment on above: 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) Start: 05-08-2023 End: 05-08-2023 ambulatory Treatment 13 [facility] Work Phone: Hematology/Oncology Comment on above: 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) Start: 05-07-2023 End: 05-07-2023 ambulatory Treatment 13 [facility] Work Phone: Hematology/Oncology Comment on above: 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) Start: 05-07-2023 Telephone encounter David Calloway sussy PÉREZTUMOR REGISTRAR Work Phone: Hematology/Oncology Comment on above: Patient Question; Jb fernandes Update (Update regarding decision making regarding patient's right-sided peripheral CV catheter with port with recent diagnosis right IJ DVT.) Start: 05-06-2023 End: 05-06-2023 ambulatory Ginna Em RN Work Phone: Entry Level Management Comment on above: CDM (Telephonic outr each/) Start: 05-06-2023 Telephone encounter Baljinder eric DO Work Phone: Hematology/Oncology Comment on above: Imm/Inj (immunizatio n) Results Start: 05-06-2023 End: 05-06-[address] Pedro Diaz Work Phone: [facility] Start: 05-06-[address] Ned marti Work Phone: [facility] Start: 05-05-2023 Patient encounter status Taylor myers Hamzah Pruitt DO Work Phone: Internal Medicine [place] Start: 05-05-2023 Telephone encounter Israel Pruitt DO Work Phone: Internal Medicine [place] Comment on above: Orders hepatitis B titer re sults/order Results (DVT) Start: 05-05-2023 End: 05-05-2023 ambulatory Treatment 13 [facility] Work Phone: Hematology/Oncology Comment on above: 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); Arm swelling Start: 05-04-2023 End: 05-04-2023 ambulatory Treatment 13 [facility] Work Phone: Hematology/Oncology Comment on above: 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 Pedro Diaz Work Phone: [facility] Start: 05-04-[address] 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) Start: 05-01-2023 End: 05-01-2023 Patient encounter procedure David Cervantes TOOL ROOM SUPERVISOR.TUMOR REGISTRAR Work Phone: [facility] Start: 04-24-2023 Telephone encounter Iram masterson TOOL ROOM SUPERVISOR.TUMOR REGISTRAR Work Phone: [facility] Cardiology Comment on above: Patient Question; Pa tient Update Start: 04-21-2023 End: 04-21-2023 Subsequent hospital visit by physician Judie [facility] ([facility]) Work Phone: Cat Scan Comment on above: Unstable gait [R26.8 1] Start: 04-20-2023 End: 04-20-2023 Patient encounter procedure Israel Pruitt DO Work Phone: Internal Medicine [place] Comment on above: Unstable gait (Prima ry [...] Hematology/Oncology Comment on above: Research ([place] [id number]) Start: 04-15-2023 End: 04-15-2023 ambulatory Treatment Rm 13 [facility] Work Phone: Hematology/Oncology Comment on above: 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 Ned Dinh Work Phone: 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) Start: 04-10-2023 Telephone encounter Iram masterson APRN.TUMOR REGISTRAR Work Phone: [facility] Cardiology Comment on above: Patient Update Start: 04-10-2023 End: 04-10-2023 ambulatory Treatment 13 [facility] Work Phone: Hematology/Oncology Comment on above: 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) Start: 04-09-2023 End: 04-09-2023 ambulatory Treatment 13 [facility] Work Phone: Hematology/Oncology Comment on above: 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) Start: 04-08-2023 Telephone encounter Ileana Sosa RN He matology/Oncology Comment on above: 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 ) Start: 04-08-2023 End: 04-08-2023 ambulatory Treatment Rm 13 [facility] Work Phone: Hematology/Oncology Comment on above: 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) Start: 03-25-2023 End: 03-25-2023 Patient encounter procedure Israel Pruitt DO Work Phone: Internal Medicine [place] Comment on above: Traumatic ecchymosis of foot, right, initial encounter (Primary Dx); Bilateral calf pain; Venous stasis of both lower extremities; Diminished pulses in lower extremity Start: 03-23-2023 ambulatory Eveline Bonilla Work Phone: [facility] Start: 03-23-2023 Follow-up encounter Eveline torres RN Work Phone: Entry Level Management Comment on above: community monitoring outreach (Cdm ED follow up) Start: 03-20-2023 End: 03-20-2023 Emergency department patient visit ISRAEL PRUITT Facility:[facility] Start: 03-20-2023 ambulatory Jennifer Wilson TOOL ROOM SUPERVISOR.TUMOR REGISTRAR Work Phone: Virtual Medicine Comment on above: Blue toes (Primary D x) Start: 03-20-2023 Telemedicine consult ation with patient Jennifer Leos [facility] TOOL ROOM SUPERVISOR.TUMOR REGISTRAR Work Phone: MAIN VIRTUAL VISIT Start: 03-19-2023 ambulatory Eveline Bonilla Work Phone: Entry Level Management Comment on above: community monitoring outreach (Cdm telephonic outreach) Start: 03-18-2023 Telephone encounter Israel Pruitt DO Work Phone: Family Medicine [place] Comment on above: Patient Update Start: 03-17-2023 End: 03-17-2023 ambulatory ISRAEL PRUITT Facility:[facility] Start: 03-17-2023 End: 03-17-2023 ambulatory Chair 8 [facility] [employer] Work Phone: Hematology/Oncology Comment on above: 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) Start: 03-16-2023 End: 03-16-2023 ambulatory ISRAEL PRUITT Facility:[facility] Start: 03-16-2023 End: 03-16-2023 ambulatory Chair 2 [facility] [employer] Work Phone: Hematology/Oncology Comment on above: 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) Start: 03-13-2023 Telephone encounter Baljinder eric DO Work Phone: Hematology/Oncology Comment on above: New Patient Start: 03-13-2023 End: 03-13-2023 ambulatory ISRAEL PRUITT Facility:[facility] Start: 03-13-2023 End: 03-13-2023 ambulatory Chair 8 [facility] [employer] Phone: Hematology/Oncology Comment on above: 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) Start: 03-12-2023 End: 03-12-2023 Patient encounter procedure Israel Pruitt DO Work Phone: Internal Medicine [place] Comment on above: PAF (paroxysmal atri al fibrillation) (HCC) (Primary Dx); MDS (myelodysplastic syndrome) (HCC); Essential hypertension, benign; Hypothyroidism, unspecified type; Chronic heart failure with preserved ejection fraction (HCC); Constipation due to slow transit; 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HCC); Mixed hyperlipidemia; Vitamin D deficiency Start: 03-12-2023 End: 03-12-2023 ambulatory ISRAEL PRUITT Facility:[facility] Start: 03-12-2023 End: 03-12-2023 ambulatory Chair 7 [facility] [employer] Phone: Hematology/Oncology Comment on above: 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) Start: 03-11-2023 End: 03-11-2023 ambulatory ISRAEL PRUITT Facility:[facility] Start: 03-11-2023 End: 03-11-2023 ambulatory Chair 8 [facility] [employer] Phone: Hematology/Oncology Comment on above: 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); Chemotherapy-induced neutropenia (HCC) Start: 03-11-2023 End: 03-11-2023 Patient encounter procedure Randa Valentinolivia DO Work Phone: [facility] [employer] Start: 03-10-2023 End: 03-10-2023 ambulatory ISRAEL PRUITT Facility:[facility] Start: 03-09-2023 End: 03-09-2023 ambulatory ISRAEL PRUITT Facility:[facility] Start: 03-09-2023 End: 03-09-2023 ambulatory Chair 8 [facility] Work Phone: Hematology/Oncology Comment on above: 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) Start: 02-28-2023 ambulatory Israel Pruitt DO Work Phone: Internal Medicine [place] Comment on above: LOCATION Start: 02-17-2023 End: 02-17-2023 ambulatory ISRAEL PRUITT Facility:[facility] Start: 02-17-2023 End: 02-17-2023 ambulatory Chair 5 [facility] Work Phone: Hematology/Oncology Comment on above: 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) Start: 02-16-2023 End: 02-16-2023 ambulatory ISRAEL PRUITT Facility:[facility] Start: 02-16-2023 End: 02-16-2023 ambulatory Chair 5 [facility] Work Phone: Hematology/Oncology Comment on above: 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) Start: 02-13-2023 End: 02-13-2023 ambulatory ISRAEL PRUITT Facility:[facility] Start: 02-13-2023 End: 02-13-2023 ambulatory Chair 7 [facility] [employer] Phone: Hematology/Oncology Comment on above: 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) Start: 02-12-2023 End: 02-12-2023 ambulatory ISRAEL PRUITT Facility:[facility] Start: 02-12-2023 End: 02-12-2023 ambulatory Chair 2 [facility] Work Phone: Hematology/Oncology Comment on above: 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) Start: 02-11-2023 End: 02-11-2023 ambulatory ISRAEL PRUITT Facility:[facility] Start: 02-11-2023 End: 02-11-2023 ambulatory Chair 4 [facility] Work Phone: Hematology/Oncology Comment on above: 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) Start: 02-10-2023 End: 02-10-2023 ambulatory ISRAEL PRUITT Facility:[facility] Start: 02-10-2023 End: 02-10-2023 ambulatory Chair 7 [facility] [employer] Phone: Hematology/Oncology Comment on above: 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) Start: 02-09-2023 End: 02-09-2023 ambulatory ISRAEL PRUITT Facility:[facility] Start: 02-09-2023 End: 02-09-2023 ambulatory Bed 1 [facility] [employer] Phone: Hematology/Oncology Comment on above: 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) Start: 02-04-2023 End: 02-05-2023 ambulatory ISRAEL PRUITT Facility:[facility] Start: 02-04-2023 End: 02-04-2023 ambulatory Randa [employer] Work Phone: [facility] Hematology/Oncology Comment on above: 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); Chemotherapy-induced neutropenia (HCC); Macrocytic anemia Start: 02-04-2023 End: 02-04-2023 Patient encounter procedure Randa Rowell Dogster Phone: [facility] [employer] Start: 01-30-2023 ambulatory Eveline Bonilla Work Phone: Entry Level Management Comment on above: community monitoring outreach (Cdm telephonic outreach) Start: 01-20-2023 End: 01-20-2023 ambulatory ISREAL PRUITT Facility:[facility] Start: 01-19-2023 End: 01-19-2023 ambulatory ISRAEL PRUITT Facility:[facility] Start: 01-19-2023 End: 01-19-2023 ambulatory Chair 2 [employer] Phone: Hematology/Oncology Comment on above: 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) Start: 01-16-2023 End: 01-16-2023 ambulatory ISRAEL PRUITT Facility:[facility] Start: 01-16-2023 End: 01-16-2023 ambulatory Chair 5 [facility] [employer] Phone: Hematology/Oncology Comment on above: 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) Start: 01-15-2023 End: 01-15-2023 ambulatory ISRAEL PRUITT Facility:[facility] Start: 01-15-2023 End: 01-15-2023 ambulatory Chair 5 [facility] [employer] Phone: Hematology/Oncology Comment on above: 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) Start: 01-14-2023 End: 01-14-2023 ambulatory ISRAEL PRUITT Facility:[facility] Start: 01-14-2023 End: 01-14-2023 ambulatory Randa Rowell Evi Work Phone: [facility] Hematology/Oncology Comment on above: 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); Macrocytic anemia 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) Start: 01-14-2023 End: 01-14-2023 Patient encounter procedure Rnada Rowell DO Work Phone: [facility] [employer] Start: 01-13-2023 End: 01-13-2023 Patient encounter procedure Iram Johnson APRN.TUMOR REGISTRAR Work Phone: [facility] Cardiology Comment on above: Benign hypertension (Primary Dx); 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; Mixed hyperlipidemia; PAF (paroxysmal atrial fibrillation) (HCC); Pacemaker; CHB (complete heart block) (HCC); senior care current use of anticoagulant Encounter for care o f pacemaker (Primary Dx) Start: 01-13-2023 End: 01-15-2023 ambulatory ISRAEL PRUITT Facility:[facility] Start: 01-13-2023 End: 01-13-2023 ambulatory Chair 5 [facility] [employer] Phone: Hematology/Oncology Comment on above: 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) Start: 01-12-2023 End: 01-12-2023 ambulatory ISRAEL PRUITT Facility:[facility] Start: 01-12-2023 End: 01-12-2023 ambulatory Bed 1 [facility] [employer] Phone: Hematology/Oncology Comment on above: 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) Start: 01-08-2023 ambulatory Eveline Bonilla Work Phone: Entry Level Management Comment on above: community monitoring outreach (Cdm telephonic outreach) Start: 12-23-2022 End: 12-23-2022 ambulatory ISRAEL PRUITT Facility:[facility] Start: 12-22-2022 End: 12-22-2022 ambulatory Chair 3 [employer] Phone: Hematology/Oncology Comment on above: 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) Start: 12-19-2022 End: 12-22-2022 ambulatory ISRAEL PRUITT Facility:[facility] Start: 12-18-2022 End: 12-19-2022 ambulatory ISRAEL PRUITT Facility:[facility] Start: 2022 End: 12-18-2022 ambulatory ISRAEL PRUITT Facility:[facility] Start: 2022 End: 2022 ambulatory Chair 8 [employer] Phone: Hematology/Oncology Comment on above: 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) Start: 12-16-2022 End: 2022 ambulatory RANDA ROWELL Facility:[facility] Start: 12-15-2022 Telephone encounter Linda Pollock PG Hematology/Oncology Comment on above: Benefits Investigati on Start: 12-15-2022 End: 12-16-2022 ambulatory RANDA SINDEL Facility:[facility] Start: 12-15-2022 End: 12-15-2022 ambulatory Bed 2 [employer] Phone: Hematology/Oncology Comment on above: 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) Start: 12-11-2022 End: 12-11-2022 Patient encounter procedure Israel Pruitt DO Work Phone: [facility] [place] Comment on above: Other myeloid leukem ia [...] deficiency; Vitamin D deficiency Start: 12-05-2022 ambulatory [facility]ET BUTLER [facility] Start: 12-05-2022 End: 12-05-2022 Subsequent hospital visit by physician Manjeet Butler MD Work Phone: [facility] INTERVENTIONAL RADIOLOGY Comment on above: 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) [C93.10] Start: 12-04-2022 End: 12-05-2022 ambulatory Skye Mas APRN.TUMOR REGISTRAR Work Phone: [facility] Hematology/Oncology Comment on above: 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); Other specified counseling Start: 12-04-2022 End: 12-04-2022 Patient encounter procedure Skye Mas APRN.TUMOR REGISTRAR Work Phone: [facility] Start: 11-26-2022 End: 11-27-2022 ambulatory ISRAEL PRUITT Facility:[facility] Start: 11-26-2022 Telephone encounter Randa myers DO Work Phone: [facility] Hematology/Oncology Comment on above: Appointment Start: 11-26-2022 End: 11-26-2022 ambulatory ISRAEL PRUITT Facility:[facility] Start: 11-26-2022 End: 11-26-2022 ambulatory Randa Rowell DO Work Phone: [facility] Hematology/Oncology Comment on above: 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) Start: 11-26-2022 End: 11-26-2022 Patient encounter procedure Randa Rowell DO Work Phone: [facility] Start: 11-20-2022 Refill Israel Pruitt DO Work Phone: [facility] [place] Comment on above: Refill Request Start: 11-06-2022 Telephone encounter Christa Paris RN [facility] Comment on above: ak HFC question Start: 11-05-2022 End: 11-06-2022 ambulatory Randa Rowell DO Work Phone: [facility] Hematology/Oncology Comment on above: MDS (myelodysplastic syndrome) (HCC) (Primary Dx); Macrocytic anemia Start: 11-05-2022 End: 11-05-2022 Patient encounter procedure Randa Rowell DO Work Phone: [facility] Start: 10-24-2022 ambulatory ISRAEL PRUITT Facility:[facility] Start: 10-24-2022 End: 10-24-2022 Subsequent hospital visit by physician Jesus Manuel White MD Work Phone: [facility] INTERVENTIONAL RADIOLOGY Comment on above: Macrocytic anemia [D 53.9] Start: 10-23-2022 End: 10-23-2022 Refill Israel Pruitt DO Work Phone: [facility] [place] Comment on above: Refill Request Patient Question Impending cerebrovas cular accident (HCC) (Primary Dx); Cerebral artery occlusion with cerebral infarction (HCC); Paresthesia Start: 10-16-2022 End: 10-17-2022 ambulatory ISRAEL PRUITT Facility:[facility] Start: 10-16-2022 End: 10-16-2022 Patient encounter procedure Tara Neal APRN.TUMOR REGISTRAR Work Phone: [facility] Comment on above: Chronic heart failur e with preserved ejection fraction (HCC) [I50.32 (ICD-10-CM)] (Primary Dx) Start: 10-09-2022 Telephone encounter Randalouis Avelartrice myers DO Work Phone: [facility] Hematology/Oncology Comment on above: Orders (Bone Marrow Biopsy) Start: 10-09-2022 End: 10-09-2022 ambulatory ISRAEL PRUITT Facility:[facility] Start: 10-09-2022 End: 10-09-2022 ambulatory Randa Rowell DO Work Phone: [facility] Hematology/Oncology Comment on above: Macrocytic anemia (P rimary Dx) Start: 10-09-2022 End: 10-09-2022 Patient encounter procedure Randa Rowell DO Work Phone: [facility] Start: 10-06-2022 End: 10-06-2022 ambulatory Rosa Abrams OT/[facility] [place] Comment on above: Impending cerebrovas cular accident (HCC) (Primary Dx); Cerebral artery occlusion with cerebral infarction (HCC); Numbness in cervical dermatome distribution; Paresthesia Start: 10-01-2022 End: 10-01-2022 Patient encounter procedure [facility] [place] Work Phone: [facility] Cardiology Comment on above: Pacemaker (Primary D x); PAF (paroxysmal atrial fibrillation) (HCC) Start: 09-29-2022 Telephone encounter Israel Pruitt DO Work Phone: [facility] [place] Comment on above: Patient Update Start: 09-25-2022 End: 09-25-2022 Patient encounter procedure Israel Pruitt DO Work Phone: [facility] [place] Comment on above: Complete heart block (HCC) (Primary Dx); Paroxysmal atrial fibrillation (HCC); Hx of four vessel coronary artery bypass graft; Essential hypertension, benign; Anemia, unspecified type; Numbness and tingling of left arm and leg; Iron deficiency; Constipation due to slow transit; Ankle edema, bilateral Start: 09-23-2022 Telephone encounter Israel Pruitt DO Work Phone: [facility] [place] Comment on above: Patient Question; Ap pointment Start: 09-19-2022 ambulatory Lena Cruz RN [facility] Start: 09-19-2022 Telephone encounter Minerva Herbert RN [facility] Comment on above: Appointment Transition Of Care Transition Of Care ( TCM Pharmacy-Hospital discharge 09/18/22/) Start: 09-17-2022 Telephone encounter Israel Pruitt DO Work Phone: [facility] [place] Comment on above: Patient Update; Orde rs Start: 09-16-2022 Telephone encounter Israel Pruitt DO Work Phone: [facility] [place] Comment on above: Patient Update Start: 09-11-2022 End: 09-11-2022 Patient encounter procedure Israel Pruitt DO Work Phone: [facility] [place] Comment on above: 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HCC) [...] Israel Pruitt DO Work Phone: [facility] [place] Comment on above: Occupation Therapy P ree of care Start: 09-10-2022 ambulatory Israel Pruitt DO Work Phone: [facility] [place] Comment on above: Stomach Start: 09-08-2022 Patient Out[facility] [place] Comment on above: Transition Of Care Start: 09-05-2022 Telephone encounter Israel Pruitt DO Work Phone: [facility] [place] Comment on above: Patient Update Start: 09-03-2022 Telephone encounter Israel Pruitt DO Work Phone: [facility] [place] Comment on above: Patient Question Start: 08-22-2022 Anticoagulant drug monitoring Vaishali Ng MD, PhD Work Phone: Neurosurgery Comment on above: Cerebrovascular acci dent (CVA), unspecified mechanism (HCC) (Primary Dx); Primary hypertension; Atrial fibrillation, unspecified type (HCC); Current use of nursing home anticoagulation Start: 08-22-2022 Telemedicine consult ation with patient Vaishali Ng MD, PhD Work Phone: [facility] Start: 08-14-2022 Refill Israel Pruitt DO Work Phone: [facility] [place] Comment on above: Refill Request Start: 08-07-2022 Patient Outreach Tere herman RN Work Phone: Entry Level Management Comment on above: Transition Of Care ( TCM F/U) Start: 08-05-2022 Refill Israel Pruitt DO Work Phone: [facility] [place] Start: 07-29-2022 End: 07-29-2022 ambulatory BALJINDER TREVIZO Facility:[facility] Start: 07-25-2022 Patient Outreach Tere herman RN Work Phone: Entry Level Management Comment on above: Transition Of Care ( TCM F/U) Start: 07-24-2022 End: 07-24-2022 Patient encounter procedure Israel Pruitt DO Work Phone: [facility] [place] Comment on above: Spinal stenosis of l [...] Start: 07-24-2022 End: 07-25-2022 ambulatory ISRAEL PRUITT Facility:[facility] Start: 07-22-2022 Telephone encounter Baljinder bonilla MD Work Phone: Pain Management Comment on above: Consult Start: 07-17-2022 End: 07-18-2022 ambulatory ISRAEL PRUITT Facility:[facility] Start: 07-17-2022 End: 07-17-2022 Patient encounter procedure Rosa Gonzalez PA-C Work Phone: [facility] Comment on above: Chronic heart failur e with preserved ejection fraction (HCC) (Primary Dx) Start: 07-10-2022 Patient Outreach Telma Thorpe RN Amb [facility] Care Management Comment on above: Transition Of Care ( TCM Hospital Discharge 07/09/22) Orders (HFC order co ntact/appt) Patient Update Start: 07-09-2022 Telephone encounter Israel Pruitt DO Work Phone: [facility] [place] Comment on above: Home Health Orders Start: 07-04-2022 End: 07-09-2022 Evaluation and management of inpatient ISRAEL PRUITT Facility:[facility] Start: 07-04-2022 End: 07-04-2022 Emergency department patient visit ISRAEL PRUITT Facility:[facility] Start: 07-04-2022 ambulatory Israel Pruitt DO Work Phone: [facility] [place] Comment on above: Reporting Start: 07-03-2022 Orders Only Baljinder Trevizo MD Work Phone: Pain Management Comment on above: 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 (Primary Dx); Arthropathy of lumbar facet joint Start: 06-13-2022 Telephone encounter Baljinder bonilla MD Work Phone: Pain Management Comment on above: Consult (Injection); Schedule Injection; Cardiac Clearance Start: 06-10-2022 End: 06-10-2022 Patient encounter procedure Iram Johnson APRN.CNP Work Phone: [facility] Cardiology Comment on above: Benign hypertension (Primary Dx); 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; Mixed hyperlipidemia; PAF (paroxysmal atrial fibrillation) (HCC); 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s with INR goal of 2.0-3.0; RBBB; PVC's (premature ventricular contractions) Start: 06-04-2022 End: 06-04-2022 Subsequent hospital visit by physician [facility] Comment on above: Vivienne pena [M70.50] Start: 06-04-2022 Telephone encounter Israel Pruitt DO Work Phone: Internal [facility] [place] Comment on above: Radiology XR Start: 06-02-2022 Telephone encounter Israel Pruitt DO Work Phone: [facility] [place] Comment on above: Results, Lab Start: 05-30-2022 Telephone encounter Jayashree Negrete rch TOOL ROOM SUPERVISOR.TUMOR REGISTRAR Work Phone: Internal [facility] [place] Comment on above: Opened In Error Start: 05-29-2022 End: 05-29-2022 Patient encounter procedure Israel Pruitt DO Work Phone: Internal [facility] [place] Comment on above: Pes anserine bursiti s (Primary Dx); Acute pain of right knee; Primary insomnia; Spinal stenosis of lumbar region with neurogenic claudication; Paroxysmal atrial fibrillation (HCC); Essential hypertension, benign Start: 05-28-2022 ambulatory Laron Jorgensen ms, PA-C Work Phone: [facility] [place] Comment on above: Lumbar MRI results Start: 05-28-2022 E-mail encounter fro m caregiver Laron Fortune PA-C Work Phone: [facility] Start: 05-26-2022 ambulatory ISRAEL PRUITT Facility:[facility] Start: 05-26-2022 End: 05-26-2022 Subsequent hospital visit by physician Bibiana Yang (1.5t) RADIO [facility] Comment on above: 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 [M48.062] Start: 05-26-2022 Telephone encounter Israel Pruitt DO Work Phone: [facility] [place] Comment on above: Appointment Start: 05-15-2022 ambulatory Isarel Pruitt DO Work Phone: Internal [facility] [place] Comment on above: New Information Start: 05-08-2022 End: 05-08-2022 Patient encounter procedure Laron Fortune PA-C Work Phone: [facility] [place] Comment on above: 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 Start: 04-17-2022 Refill Israel Pruitt DO Work Phone: [facility] [place] Comment on above: Refill Request Start: 04-11-2022 End: 04-11-2022 ambulatory Eyal Rodrigues [facility] [employer] [facility] Comment on above: 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 (Primary Dx); Chronic bilateral low back pain without sciatica Start: 04-04-2022 End: 04-04-2022 ambulatory Eyal Rodrigues [facility] Comment on above: 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 (Primary Dx); Chronic bilateral low back pain without sciatica Start: 04-02-2022 Telephone encounter Israel Pruitt DO Work Phone: [facility] [place] Comment on above: Results, Lab Start: 03-28-2022 End: 03-28-2022 ambulatory Eyal Rodrigues [facility] [employer] [facility] Comment on above: 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 (Primary Dx); Chronic bilateral low back pain without sciatica Start: 03-24-2022 Telephone encounter Guillermina galeas APRN.TUMOR REGISTRAR Work Phone: [facility] [place] Comment on above: Results Start: 03-21-2022 End: 03-21-2022 Patient encounter procedure Guillermina Cummings APRN.TUMOR REGISTRAR Work Phone: [facility] [place] Comment on above: Leg swelling (Primar y Dx); Primary hypertension Start: 03-21-2022 End: 03-21-2022 ambulatory Sanket Solo PT Work Phone: [employer] [facility] [employer] [facility] Comment on above: Chronic bilateral lo w back pain without sciatica (Primary Dx); Spinal stenosis of lumbar region with neurogenic claudication Start: 03-18-2022 End: 03-18-2022 ambulatory Israel Pruitt DO Work Phone: Internal [facility] [place] Comment on above: Anemia, unspecified type (Primary [...] Work Phone: [facility] Start: 03-12-2022 End: 03-12-2022 Subsequent hospital visit by physician Fer Yang [facility] Comment on above: 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 [M48.062] Start: 02-26-2022 End: 02-26-2022 Patient encounter procedure Guillermina Cummings TOOL ROOM SUPERVISOR.TUMOR REGISTRAR Work Phone: [facility] [place] Comment on above: Chronic midline low back pain without sciatica (Primary Dx); Spinal stenosis of lumbar region with neurogenic claudication Start: 02-20-2022 Refill Israel Pruitt DO Work Phone: [facility] [place] Comment on above: Refill Request Medication Start: 02-17-2022 Refill Israel Pruitt DO Work Phone: [facility] [place] Comment on above: Refill Request Start: 02-09-2022 ambulatory Israel Pruitt DO Work Phone: [facility] [place] Comment on above: Medication Start: 02-09-2022 E-mail encounter fro m caregiver Iram Johnson TOOL ROOM SUPERVISOR.TUMOR REGISTRAR Work Phone: [facility] Start: 02-09-2022 Patient encounter procedure Ginger Johnson TOOL ROOM SUPERVISOR.TUMOR REGISTRAR Work Phone: [facility] Cardiology Comment on above: Appointment Request (HM) Start: 09-28-2020 End: 09-28-2020 Patient encounter procedure Laron Arreola MD Work Phone: [facility] Work Phone: Procedures Date Procedure Procedure Detail Performing Clinician Start: 06-23-[address] Ronaldo Pleitez MD Work Phone: Start: 06-18-[address] Ronaldo Pleitez MD Work Phone: Start: 04-07-2025 Ecg routine ecg w/le ast 12 lds i&r only Iram Johnson TOOL ROOM SUPERVISOR.TUMOR REGISTRAR Work Phone: Start: 07-29-2024 Adult depression scr eening assessment Ronaldo Pleitez MD Work Phone: Start: 01-22-2024 Radiologic exam ches t 2 views Ronaldo Pleitez MD Work Phone: Start: 12-23-2023 Radex elbow complete minimum 3 views Ronaldo Pleitez MD Work Phone: Start: 07-24-2023 INFLUENZA VACCINE, P RSV FREE, AGE 65+ YR, HIGH DOSE, QUADRIVALENT (FLUZONE HIGH-DOSE) Arabella Older TOOL ROOM SUPERVISOR.TUMOR REGISTRAR Work Phone: Start: 05-29-2023 Radiologic exam ches [...] bone bonnie ow biopsies & aspirations Randa Rowell DO Work Phone: Start: 10-24-2022 Prothrombin time Les White MD Work Phone: Start: 07-24-2022 INFLUENZA SEASONAL QUADRIVALENT HIGH DOSE AGE 65+ Israel Goodson Tirmonia DO Work Phone: Start: 07-24-2022 PFIZER-BIONTECH COVI D-19 BIVALENT BOOSTER VACCINE, AGE 12+ YR Israel Goodson Tirmonia DO Work Phone: Start: 07-07-2022 Echocardiography MICHAE L TIRMONIA Start: 07-04-2022 Electrocardiogram TAYLOR EL TIRMONIA Start: 06-04-2022 Radiologic examinati on knee 1/2 views Israel Pettymonia DO Work Phone: Start: 05-26-2022 Mri spinal canal lum bar w/o contrast material Laron Fortune PA-C Work Phone: Start: 03-12-2022 Radex spine lumbosac ral minimum 4 views Laron Fortune PA-C Work Phone: Start: 07-10-2021 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 Iram Johnson TOOL ROOM SUPERVISOR.TUMOR REGISTRAR Work Phone: Start: 09-28-2020 End: 09-28-2020 Blood pressure within normal parameters - no follow-up required Laron Arreola MD Work Phone: Start: 09-28-2020 End: 09-28-2020 BMI documented as above normal parameters - follow-up documented Larno Arreola MD Work Phone: Start: 09-28-2020 End: [...] Treatment Date Care Activity Detail Author Start: 06-23-2028 Diabetes Screening Diabetes Screenin [facility] Start: 04-14-2028 Diabetes Screening Diabetes Screenin [facility] Start: 03-31-2028 Diabetes Screening Diabetes Screenin [facility] Start: 01-21-2028 Diabetes Screening Diabetes Screenin [facility] Start: 01-06-2028 Diabetes Screening Diabetes Screenin [facility] Start: 09-15-2027 Diabetes Screening Diabetes Screenin [facility] Start: 06-16-2027 Diabetes Screening Diabetes Screenin [facility] Start: 03-17-2027 Diabetes Screening Diabetes Screenin [facility] Start: 02-17-2027 Diabetes Screening Diabetes Screenin [facility] Start: 01-20-2027 Diabetes Screening Diabetes Screenin [facility] Start: 12-24-2026 Diabetes Screening Diabetes Screenin [facility] Start: 09-30-2026 Diabetes Screening Diabetes Screenin g [facility] Start: 08-06-2026 Diabetes Screening Diabetes Screenin [facility] Start: 06-25-2026 DIABETES SCREEN DIABETES SCREEN [facility] Start: 06-25-2026 Diabetes Screening Diabetes Screenin g [facility] Start: 05-28-2026 DIABETES SCREEN DIABETES SCREEN [facility] Start: 05-14-2026 DIABETES SCREEN DIABETES SCREEN [facility] Start: 05-01-2026 DIABETES SCREEN DIABETES SCREEN [facility] Start: 04-17-2026 End: 04-17-2026 Patient encounter procedure [facility] EPS 220 Comment on above: bio and rc Start: 04-08-2026 DIABETES SCREEN DIABETES SCREEN [facility] Start: 03-27-2026 Covid-19 Vaccine (8 - Pfizer risk ) Covid-19 Vaccine (8 - Pfizer risk ) [facility] Comment on above: Postponed from 02/27 (Declined at this time) Start: 03-20-2026 DIABETES SCREEN DIABETES SCREEN [facility] Start: 03-11-2026 DIABETES SCREEN DIABETES SCREEN [facility] Start: 03-09-2026 DIABETES SCREEN DIABETES SCREEN [facility] Start: 02-09-2026 DIABETES SCREEN DIABETES SCREEN [facility] Start: 02-04-2026 DIABETES SCREEN DIABETES SCREEN [facility] Start: 01-20-2026 Hepatitis B surface antibody level LDL Cholesterol [facility] Start: 01-12-2026 DIABETES SCREEN DIABETES SCREEN [facility] Start: 12-15-2025 DIABETES SCREEN DIABETES SCREEN [facility] Start: 10-07-2025 DIABETES SCREEN DIABETES SCREEN [facility] Start: 09-18-2025 DIABETES SCREEN DIABETES SCREEN [facility] Start: 09-16-2025 DIABETES SCREEN DIABETES SCREEN [facility] Start: 09-15-2025 Hepatitis B surface antibody level LDL Cholesterol [facility] Start: 09-04-2025 DIABETES SCREEN DIABETES SCREEN [facility] Start: 08-28-2025 DIABETES SCREEN DIABETES SCREEN [facility] Start: 08-22-2025 DIABETES SCREEN DIABETES SCREEN [facility] Start: 08-04-2025 End: 08-04-2025 ambulatory Marva Louis [facility] Comment on above: (SO)CBC(?TX)* [id number] ?ARANESP/LAB EA RLY* Start: 08-02-2025 End: 08-02-2025 Patient encounter procedure [facility] [place] Comment on above: follow up 6 months Start: 07-29-2025 Anxiety Screening Anxiety Screening [facility] Start: 07-29-2025 Depression Screening Depression Scre ening [facility] Start: 07-25-2025 Urine microalbumin profile [facility] Start: 07-24-2025 DIABETES SCREEN DIABETES SCREEN [facility] Start: 07-21-2025 End: 07-21-2025 ambulatory [facility] Comment on above: (SO)CBC(?TX)* Q2WK ?ARANESP/LAB EA RLY* Start: 07-11-2025 End: 07-11-2025 ambulatory [facility] Comment on above: (SO)CBC(?TX)* Q2WK ?ARANESP/LAB EA RLY* Start: 07-10-2025 Influenza vaccination Influenza Vacc ine (#1) [facility] Start: 07-09-2025 DIABETES SCREEN DIABETES SCREEN [facility] Start: 07-07-2025 End: 07-07-2025 ambulatory Hematology/Oncology Comment on above: 3 MO OV/LAB EARLY* Q2WK ?ARANESP/LAB&OV EARLY* Start: 07-07-2025 End: 07-07-2025 ambulatory 07/07/2025 9:30 AM EDT Results Only [facility] [address] [place] [address] /CBC/CMP/iron studies/erythropoietin/ B12/MMA/serum folate* [facility] Comment on above: /CBC/CMP/iron studie s/erythropoietin/B12/MMA/serum folate* Start: 07-04-2025 DIABETES SCREEN DIABETES SCREEN [facility] Start: 06-23-2025 Verification routine [facility] Start: 06-23-2025 Hospital admission, emergency, from emergency room, medical nature [facility] Start: 06-23-2025 Admission procedure [facility] Start: 06-23-2025 [facility] Start: 06-23-2025 End: 09-21-2025 Basic metabolic 2000 panel - Serum or Plasma BASIC METABOLIC PANEL Lab Routine 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, unspecified acute renal failure type (HCC) Expected: 06/23/2025, Expires: 09/21/2025 [facility] Work Phone: Comment on above: Expected: 06/23/2025 , Expires: 09/21/2025 Start: 06-23-2025 End: 09-21-2025 C reactive protein [Mass/volume] in Serum or Plasma C-REACTIVE PROTEIN Lab Routine Cellulitis of left leg Expected: 06/23/2025, Expires: 09/21/2025 [facility] Comment on above: Expected: 06/23/2025 , Expires: 09/21/2025 Start: 06-23-2025 End: 09-21-2025 Erythrocyte sedimentation rate SEDIMENTATION RATE, WESTERGREN Lab Routine Cellulitis of left leg Expected: 06/23/2025, Expires: 09/21/2025 [facility] Comment on above: Expected: 06/23/2025 , Expires: 09/21/2025 Start: 06-23-2025 End: 06-23-2025 ambulatory [facility] Comment on above: (SO)CBC(?TX)* Q2WK ?ARANESP/LAB EA RLY* Start: 06-23-2025 End: 06-23-2025 Patient encounter procedure 06/23/2025 10:20 AM EDT Office Visit [facility] [place] [address] [place] [address] Ronaldo Pleitez MD [address] [place] [address] 2 day follow-up - bilateral lower leg edema [facility] [place] Comment on above: 2 day follow-up - bi lateral lower leg edema Start: 06-21-2025 End: 06-21-2025 Patient encounter procedure 06/21/2025 11:00 AM EDT Office Visit [facility] [place] [address] [place] [address] Arabella Moreno, TOOL ROOM SUPERVISOR.TUMOR REGISTRAR [address] [place], [place] [id number] ER follow up appointment [facility] [place] Comment on above: ER follow up appoint ment Start: 06-19-2025 [facility] Start: 06-19-2025 US.doppler Lower extremity vein [facility] Start: 06-09-2025 End: 06-09-2025 ambulatory [facility] Comment on above: (SO)CBC(?TX)* Q2WK ?ARANESP/LAB EA RLY* Start: 06-05-2025 End: 06-05-2025 Patient encounter procedure 06/05/2025 2:40 PM EDT Office Visit [facility] [place] [address] [place] [address] Arabella Moreno, TOOL ROOM SUPERVISOR.TUMOR REGISTRAR [address] [place] [id number] wound recheck [facility] [place] Comment on above: wound recheck Start: 05-29-2025 End: 05-29-2025 Patient encounter procedure 05/29/2025 2:40 PM EDT Office Visit [facility] [place] [address] [place] [address] Arabella Moreno, TOOL ROOM SUPERVISOR.TUMOR REGISTRAR [address] [place] [address] follow up skin tears [facility] [place] Comment on above: follow up skin tears Start: 05-26-2025 End: 05-26-2025 ambulatory [facility] Comment on above: (SO)CBC(?TX)* Q2WK ?ARANESP/LAB EA RLY* Start: 05-11-2025 End: 05-11-2025 ambulatory [facility] Comment on above: (SO)CBC(?TX)* Q2WK ?ARANESP/LAB EA RLY* Start: 04-28-2025 End: 04-28-2025 [facility] Comment on above: (SO)CBC(?TX)* Q2WK ?ARANESP/LAB EA RLY* Start: 04-20-2025 End: 07-20-2025 Basic metabolic 2000 panel - Serum or Plasma BASIC METABOLIC PANEL Lab Routine Lymphedema of right lower extremity Expected: 04/20/2025, Expires: 07/20/2025 [facility] Work Phone: Comment on above: Expected: 04/20/2025 , Expires: 07/20/2025 Start: 04-14-2025 End: 04-14-2025 ambulatory [place] [facility] Comment on above: (SO)CBC(?TX)* Q2WK ?ARANESP/LAB EA RLY/AUTH EXP 05/09/25* Q2WK ?ARANESP/LAB EA RLY* Start: 04-07-2025 End: 04-07-2025 Patient encounter procedure [facility] Comment on above: bio and rc Start: 03-31-2025 End: 06-30-2025 Basic metabolic 2000 panel - Serum or Plasma BASIC METABOLIC PANEL Lab Routine Lymphedema of right lower extremity Lymphedema of both lower extremities Expected: 03/31/2025, Expires: 06/30/2025 [facility] Comment on above: Expected: 03/31/2025 , Expires: 06/30/2025 Start: 03-31-2025 End: 06-30-2025 Natriuretic peptide.B prohormone N-Terminal [Mass/volume] in Serum or Plasma NT PRO BNP Lab Routine Lymphedema of right lower extremity Lymphedema of both lower extremities Expected: 03/31/2025, Expires: 06/30/2025 [facility] Comment on above: Expected: 03/31/2025 , Expires: 06/30/2025 Start: 03-31-2025 End: 03-31-2025 ambulatory [place] [facility] Comment on above: (SO)CBC(?TX)* Q2WK ?ARANESP/LAB EA RLY/AUTH EXP 05/09/25* 3 MO OV/LAB&INJ ROSAMARIA Y* Start: 03-28-2025 End: 03-28-2025 Patient encounter procedure 03/28/2025 2:30 PM EDT Appointment Radiology [address] [place] [address] : Lymphedema of right lower extremity [I89.0]; Lymphedema of both lower extremities [I89.0] Radiology Comment on above: : Lymphedema of righ t lower extremity [I89.0]; Lymphedema of both lower extremities [I89.0] Start: 03-17-2025 End: 03-17-2025 ambulatory [facility] Comment on above: (SO)CBC(?TX)* Q2WK ?ARANESP/LAB EA RLY/AUTH EXP 05/09/25* Start: 03-12-2025 DIABETES SCREEN DIABETES SCREEN [facility] Start: 03-03-2025 End: 03-03-2025 ambulatory [facility] Comment on above: (SO)CBC(?TX)* Q2WK ?ARANESP/LAB EA RLY/AUTH EXP 05/09/25* 3 MO OV DUE END OF MARCH REF TE 01/06 FOR LABS Start: 02-27-2025 Covid-19 Vaccine (8 - Pfizer risk season) Covid-19 Vaccine (8 - Pfizer risk season) [facility] Start: 02-17-2025 End: 02-17-2025 ambulatory [facility] Comment on above: (SO)CBC(?TX)* Q2WK ?ARANESP/LAB EA RLY/AUTH EXP 05/09/25* Q2WK ?ARANESP/LAB EA RLY/AUTH EXP 05/09/25* 3 MO OV DUE END OF MARCH Start: 02-03-2025 End: 02-03-2025 ambulatory [facility] Comment on above: (SO)CBC(?TX)* Q2WK ?ARANESP/LAB EA RLY/AUTH EXP 05/09/25* Start: 01-31-2025 End: 01-31-2025 Patient encounter procedure 01/31/2025 11:00 AM EDT Office Visit [facility] [place] [address] [place], [place] [id number] Arabella Moreno, TOOL ROOM SUPERVISOR.TUMOR REGISTRAR [address] [place], [place] [id number] Medicare Wellness [facility] [place] Comment on above: Medicare Wellness Start: 01-26-2025 End: 04-27-2025 Comprehensive metabolic 2000 panel - Serum or Plasma COMPREHENSIVE METABOLIC PANEL Lab Routine Mixed hyperlipidemia Expected: 01/26/2025, Expires: 04/27/2025 [facility] Work Phone: Comment on above: Expected: 01/26/2025 , Expires: 04/27/2025 Start: 01-26-2025 End: 04-27-2025 Lipid 1996 panel - Serum or Plasma LIPID PANEL BASIC Lab Routine Mixed hyperlipidemia Expected: 01/26/2025, Expires: 04/27/2025 [facility] Comment on above: Expected: 01/26/2025 , Expires: 04/27/2025 Start: 01-26-2025 End: 04-27-2025 Thyrotropin [Units/volume] in Serum or Plasma THYROID STIMULATING HORMONE Lab Routine Hypothyroidism, unspecified type Expected: 01/26/2025, Expires: 04/27/2025 [facility] Comment on above: Expected: 01/26/2025 , Expires: 04/27/2025 Start: 01-20-2025 End: 01-20-2025 ambulatory [facility] Comment on above: (SO)CBC(?TX)* Q2WK ?ARANESP/LAB EA RLY/AUTH EXP 05/09/25* Start: 01-10-2025 End: 01-10-2025 ambulatory Hematology/Oncology Comment on above: CBC/CMP/IRON/ERTHROP OIETIN/B12/MMA/SERUM FOLATE* 3MO OV/EARLY LABS* Start: 01-06-2025 End: 01-06-2025 ambulatory [facility] Comment on above: QMO (SO) CBC(?TX) Q2WK ?ARANESP/LAB EA RLY/AUTH EXP?* (SO)CBC(?TX)/CMP(S)/ IRON STUDIES/ERYTHROPOIETIN/ Q2WK ?ARANESP/LAB EA RLY/AUTH EXP 05/09/25* 3MO OV/LAB&INJ EARLY * Start: 12-30-2024 End: 12-30-2024 Patient encounter procedure 12/30/2024 2:15 PM EST Office Visit [facility] [address] [place] [address] bio [facility] Comment on above: bio Start: 12-23-2024 End: 12-23-2024 ambulatory [place] [facility] Comment on above: CBC Q2WK ?ARANESP/LAB EA RLY/AUTH EXP?* (SO)CBC(?TX)* Q2WK ?ARANESP/LAB EA RLY/AUTH EXP 05/09/25* Start: 12-13-2024 End: 12-13-2024 ambulatory 12/13/2024 11:00 AM EST Results Only [place] [facility] [address] [place] [address] MONTHLY/(SO)CBC(?TX)* [place] [facility] Comment on above: MONTHLY/(SO)CBC(?TX) * Start: 12-09-2024 End: 12-09-2024 ambulatory [place] [facility] Comment on above: QMO (SO) CBC(?TX) Q2WK ?ARANESP/LAB EA RLY/AUTH EXP?* (SO)CBC(?TX)* Q2WK ?ARANESP/LAB EA RLY/AUTH EXP 05/09/25* Start: 11-24-2024 End: 11-24-2024 [place]ulatory [place] [facility] Comment on above: CBC START Q2WK ?ARANESP/ LAB EARLY/AUTH EXP?* Start: 11-15-2024 End: 11-15-2024 ambulatory 11/15/2024 11:00 AM EST Results Only [place] [facility] [address] [place] [address] MONTHLY/(SO)CBC(?TX)ERT HROPOIETIN* [place] [place] [facility] Comment on above: MONTHLY/(SO)CBC(?TX) ERTHROPOIETIN* Start: 11-12-2024 DIABETES SCREEN DIABETES SCREEN [facility] Start: 11-09-2024 Advance Directive Discussion Advance Directive Discussion [facility] Start: 10-11-2024 End: 10-11-2024 ambulatory [facility] Comment on above: (SO)CBC* (SO)CBC/1 MO OV* (MA SCI) (SO)CBC(?TX)* (LAB EARLY)1 MO OV* Start: 09-27-2024 End: 10-27-2025 NM Heart Perfusion W stress and W radionuclide IV NM CARDIAC PERF STRESS/PHARM Radiology Routine 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 Encounter for screening for cardiovascular disorders SOB (shortness of breath) Expected: 09/27/2024, Expires: 10/27/2025 [facility] Work Phone: Comment on above: Expected: 09/27/2024 , Expires: 10/27/2025 Start: 09-27-2024 End: 09-27-2024 Patient encounter procedure [facility] Comment on above: bio and rc Start: 09-22-2024 End: 09-22-2024 ambulatory 09/22/2024 10:00 AM EST Results [facility] [address] [place] [address] CBC(?TX)* [facility] Comment on above: CBC(?TX)* Start: 09-15-2024 End: 12-15-2024 Cobalamin (Vitamin B12) [Mass/volume] in Serum or Plasma VITAMIN B12 Lab Routine History of anemia Expected: 09/15/2024, Expires: 12/15/2024 [facility] Work Phone: Comment on above: Expected: 09/15/2024 , Expires: 12/15/2024 Start: 09-15-2024 End: 09-15-2024 ambulatory [facility] Comment on above: (SO)CBC(?TX)/CMP(S)/ IRON STUDIES* (SO)CBC(?TX)/CMP(S)/ IRON STUDIES/3 MO OV* Start: 08-22-2024 End: 08-22-2024 ambulatory 08/22/2024 11:00 AM EDT Results Only [facility] [address] [place] [address] (SO)CBC(?TX)* [place] [facility] Comment on above: (SO)CBC(?TX)* Start: 08-06-2024 Hepatitis B surface antibody level LDL Cholesterol [facility] Start: 07-29-2024 End: 07-29-2024 Patient encounter procedure 07/29/2024 11:00 AM EDT Office Visit [facility] [place] [address] [facility] [place] [address] Ronaldo Pleitez MD [address] [place] [address] 6 mo f/u [facility] [place] Comment on above: 6 mo f/u Start: 07-24-2024 End: 10-23-2024 Lipid 1996 panel - Serum or Plasma LIPID PANEL BASIC Lab Routine Mixed hyperlipidemia Expected: 07/24/2024, Expires: 10/23/2024 [facility] Work Phone: Comment on above: Expected: 07/24/2024 , Expires: 10/23/2024 Start: 07-21-2024 End: 07-21-2024 ambulatory 07/21/2024 10:00 AM EDT Results Only [facility] [address] [place] [address] (SO)CBC(?TX)* [facility] Comment on above: (SO)CBC(?TX)* Start: 07-10-2024 Covid-19 Vaccine ( season) Covid-19 Vaccine ( season) [facility] Start: 07-10-2024 Covid-19 Vaccine ( season) Covid-19 Vaccine ( season) [facility] Start: 07-10-2024 Influenza vaccination Influenza Vacc ine (#1) [facility] Start: 06-17-2024 End: 06-17-2024 Patient encounter procedure 06/17/2024 1:15 PM EDT Office Visit [facility] Cardiology [address] [place] [address] [facility] Cardiology Comment on above: bio Start: 06-16-2024 End: 06-16-2024 [facility] Comment on above: (SO)CBC(?TX)/CMP(S)/ IRON STUDIES* (SO)CBC(?TX)/CMP(S)/ IRON STUDIES/3 MO OV* Start: 05-21-2024 End: 08-20-2024 Thyrotropin [Units/volume] in Serum or Plasma THYROID STIMULATING HORMONE Lab Routine Hypothyroidism, unspecified type Expected: 05/21/2024, Expires: 08/20/2024 [facility] Work Phone: Comment on above: Expected: 05/21/2024 , Expires: 08/20/2024 Start: 03-17-2024 End: 06-16-2024 Ferritin [Mass/volume] in Serum or Plasma FERRITIN Lab Routine 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) Macrocytic anemia Expected: 03/17/2024, Expires: 06/16/2024 [facility] Comment on above: Expected: 03/17/2024 , Expires: 06/16/2024 Start: 03-17-2024 End: 06-16-2024 Iron and Iron binding capacity panel - Serum or Plasma IRON AND TIBC Lab Routine 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) Macrocytic anemia Expected: 03/17/2024, Expires: 06/16/2024 [facility] Work Phone: Comment on above: Expected: 03/17/2024 , Expires: 06/16/2024 Start: 03-17-2024 End: 03-17-2024 [facility] Comment on above: (SO)CBC(?TX)/CMP(S)/ IRON STUDIES* (SO)CBC(?TX)/CMP(S)/ IRON STUDIES/3 MO OV* Start: 03-11-2024 Hepatitis B surface antibody level LDL CHOLESTEROL [facility] Start: 02-18-2024 End: 05-19-2024 25-hydroxyvitamin D3 [Mass/volume] in Serum or Plasma VITAMIN D 25 HYDROXY Lab Routine Vitamin D deficiency Expected: 02/18/2024, Expires: 05/19/2024 [facility] Work Phone: Comment on above: Expected: 02/18/2024 , Expires: 05/19/2024 Start: 02-18-2024 End: 05-19-2024 Cobalamin (Vitamin B12) [Mass/volume] in Serum or Plasma VITAMIN B12 BLOOD Lab Routine B12 deficiency Expected: 02/18/2024, Expires: 05/19/2024 [facility] Work Phone: Comment on above: Expected: 02/18/2024 , Expires: 05/19/2024 Start: 02-18-2024 End: 05-19-2024 Thyrotropin [Units/volume] in Serum or Plasma TSH BLD Lab Routine Hypothyroidism, unspecified type Expected: 02/18/2024, Expires: 05/19/2024 [facility] Work Phone: Comment on above: Expected: 02/18/2024 , Expires: 05/19/2024 Start: 12-24-2023 End: 03-24-2024 Ferritin [Mass/volume] in Serum or Plasma FERRITIN BLD Lab Routine 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) Expected: 12/24/2023, Expires: 03/24/2024 [facility] Work Phone: Comment on above: Expected: 12/24/2023 , Expires: 03/24/2024 Start: 12-24-2023 End: 03-24-2024 Iron and Iron binding capacity panel - Serum or Plasma IRON + TIBC Lab Routine 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) Expected: 12/24/2023, Expires: 03/24/2024 [facility] Work Phone: Comment on above: Expected: 12/24/2023 , Expires: 03/24/2024 Start: 11-09-2023 Advance Directive Discussion Advance Directive Discussion [facility] Start: 11-09-2023 Behavioral Health Screening Behavioral Health Screening [facility] Start: 11-09-2023 Depression Assessment Depression Ass essment [facility] Start: 10-07-2023 Hepatitis B surface antibody level LDL CHOLESTEROL [facility] Start: 09-17-2023 Hepatitis B surface antibody level LDL CHOLESTEROL [facility] Start: 08-23-2023 Hepatitis B surface antibody level LDL CHOLESTEROL [facility] Start: 08-08-2023 End: 10-08-2023 25-hydroxyvitamin D3 [Mass/volume] in Serum or Plasma VITAMIN D 25 HYDROXY Lab Routine Vitamin D deficiency Expected: 08/08/2023 (Approximate), Expires: 10/08/2023 [facility] Work Phone: Comment on above: Expected: 08/08/2023 (Approximate), Expires: 10/08/2023 Start: 08-08-2023 End: 10-08-2023 CBC W Auto Differential panel - Blood CBC + DIFF Lab Routine Hypotension due to drugs MDS (myelodysplastic syndrome) (HCC) Expected: 08/08/2023 (Approximate), Expires: 10/08/2023 [facility] Work Phone: Comment on above: Expected: 08/08/2023 (Approximate), Expires: 10/08/2023 Start: 08-08-2023 End: 10-08-2023 Comprehensive metabolic 2000 panel - Serum or Plasma COMP METABOLIC PANEL Lab Routine Essential hypertension, benign PAF (paroxysmal atrial fibrillation) (HCC) Vitamin D deficiency Expected: 08/08/2023 (Approximate), Expires: 10/08/2023 [facility] Work Phone: Comment on above: Expected: 08/08/2023 (Approximate), Expires: 10/08/2023 Start: 08-08-2023 End: 10-08-2023 Iron and Iron binding capacity panel - Serum or Plasma IRON + TIBC Lab Routine MDS (myelodysplastic syndrome) (HCC) Expected: 08/08/2023 (Approximate), Expires: 10/08/2023 [facility] Work Phone: Comment on above: Expected: 08/08/2023 (Approximate), Expires: 10/08/2023 Start: 08-08-2023 End: 10-08-2023 Thyrotropin [Units/volume] in Serum or Plasma TSH BLD Lab Routine Hypothyroidism, unspecified type Expected: 08/08/2023 (Approximate), Expires: 10/08/2023 [facility] Work Phone: Comment on above: Expected: 08/08/2023 (Approximate), Expires: 10/08/2023 Start: 08-08-2023 End: 10-08-2023 Thyroxine (T4) free [Mass/volume] in Serum or Plasma T4 FREE/FREE THYROX Lab Routine Hypothyroidism, unspecified type Expected: 08/08/2023 (Approximate), Expires: 10/08/2023 [facility] Work Phone: Comment on above: Expected: 08/08/2023 (Approximate), Expires: 10/08/2023 Start: 07-13-2023 End: 09-12-2023 25-hydroxyvitamin D3 [Mass/volume] in Serum or Plasma VITAMIN D 25 HYDROXY Lab Routine Vitamin D deficiency Expected: 07/13/2023, Expires: 09/12/2023 [facility] Work Phone: Comment on above: Expected: 07/13/2023 , Expires: 09/12/2023 Start: 07-13-2023 End: 09-12-2023 CBC W Auto Differential panel - Blood CBC + DIFF Lab Routine MDS (myelodysplastic syndrome) (HCC) Expected: 07/13/2023, Expires: 09/12/2023 [facility] Work Phone: Comment on above: Expected: 07/13/2023 , Expires: 09/12/2023 Start: 07-13-2023 End: 09-12-2023 Comprehensive metabolic 2000 panel - Serum or Plasma COMP METABOLIC PANEL Lab Routine PAF (paroxysmal atrial fibrillation) (HCC) Essential hypertension, benign Chronic heart failure with preserved ejection fraction (HCC) Expected: 07/13/2023, Expires: 09/12/2023 [facility] Work Phone: Comment on above: Expected: 07/13/2023 , Expires: 09/12/2023 Start: 07-13-2023 End: 09-12-2023 Lipid 1996 panel - Serum or Plasma LIPID PANEL BASIC Lab Routine Mixed hyperlipidemia Expected: 07/13/2023, Expires: 09/12/2023 [facility] Work Phone: Comment on above: Expected: 07/13/2023 , Expires: 09/12/2023 Start: 07-13-2023 End: 09-12-2023 Natriuretic peptide.B prohormone N-Terminal [Mass/volume] in Serum or Plasma NT PRO BNP Lab Routine Chronic heart failure with preserved ejection fraction (HCC) Expected: 07/13/2023, Expires: 09/12/2023 [facility] Work Phone: Comment on above: Expected: 07/13/2023 , Expires: 09/12/2023 Start: 07-13-2023 End: 09-12-2023 Thyrotropin [Units/volume] in Serum or Plasma TSH BLD Lab Routine Hypothyroidism, unspecified type Expected: 07/13/2023, Expires: 09/12/2023 [facility] Work Phone: Comment on above: Expected: 07/13/2023 , Expires: 09/12/2023 Start: 07-13-2023 End: 09-12-2023 Thyroxine (T4) free [Mass/volume] in Serum or Plasma T4 FREE/FREE THYROX Lab Routine Hypothyroidism, unspecified type Expected: 07/13/2023, Expires: 09/12/2023 [facility] Work Phone: Comment on above: Expected: 07/13/2023 , Expires: 09/12/2023 Start: 07-10-2023 Covid-19 Vaccine () Covid-19 Vaccine () [facility] Start: 07-10-2023 Influenza vaccination [facility] Start: 07-06-2023 Hepatitis B surface antibody level LDL CHOLESTEROL [facility] Start: 07-04-2023 End: 09-03-2023 Hepatitis B virus surface Ab [Presence] in Serum HEP B SURF AB Lab Routine Immunity status testing Expected: 07/04/2023, Expires: 09/03/2023 [facility] Work Phone: Comment on above: Expected: 07/04/2023 , Expires: 09/03/2023 Start: 06-04-2023 End: 08-04-2023 Basic metabolic 2000 panel - Serum or Plasma BASIC METABOLIC PNL Lab Routine Acute on chronic diastolic congestive heart failure (HCC) Essential hypertension, benign Expected: 06/04/2023 (Approximate), Expires: 08/04/2023 [facility] Work Phone: Comment on above: Expected: 06/04/2023 (Approximate), Expires: 08/04/2023 Start: 06-02-2023 End: 08-02-2023 Basic metabolic 2000 panel - Serum or Plasma BASIC METABOLIC PNL Lab Routine Chronic heart failure with preserved ejection fraction (HCC) Essential hypertension, benign Expected: 06/02/2023 (Approximate), Expires: 08/02/2023 [facility] Work Phone: Comment on above: Expected: 06/02/2023 (Approximate), Expires: 08/02/2023 Start: 06-02-2023 End: 08-02-2023 Natriuretic peptide.B prohormone N-Terminal [Mass/volume] in Serum or Plasma NT PRO BNP Lab Routine Chronic heart failure with preserved ejection fraction (HCC) Expected: 06/02/2023 (Approximate), Expires: 08/02/2023 [facility] Work Phone: Comment on above: Expected: 06/02/2023 (Approximate), Expires: 08/02/2023 Start: 05-22-2023 Administration of bl ood product [facility] Start: 05-22-2023 [facility] Start: 05-19-2023 [facility] Start: 05-18-2023 [facility] Start: 05-18-2023 Patient discharge [facility] Start: 05-17-2023 Bacteria identified in Blood by Culture Blood Culture [facility] Start: 05-17-2023 Blood culture [facility] Start: 05-17-2023 Consultation [facility] Start: 05-14-2023 Assessment of risk o f venous thromboembolism [facility] Start: 05-14-2023 Cardiac monitoring [facility] Start: 05-14-2023 Care regimes management [facility] Start: 05-14-2023 Catheterization of vein [facility] Start: 05-14-2023 Inhalation therapy procedure [facility] Start: 05-14-2023 Insertion of cathete r into peripheral vein [facility] Start: 05-14-2023 Measuring intake and output [facility] Start: 05-14-2023 Notification of physician [facility] Start: 05-14-2023 Oxygen therapy [facility] Start: 05-14-2023 Providing care accor ding to standard [facility] Start: 05-14-2023 Provision of activit y privileges [facility] Start: 05-14-2023 Referral to occupati onal therapist [facility] Start: 05-14-2023 Referral to service [facility] Start: 05-14-2023 [facility] Start: 05-14-2023 Verification routine [facility] Start: 05-14-2023 Admission procedure [facility] Start: 05-14-2023 Bacteria identified in Blood by Culture Blood Culture [facility] Start: 05-14-2023 End: 05-14-2023 [facility] Start: 05-14-2023 End: 05-14-2023 Blood culture [facility] Start: 04-20-2023 End: 05-19-2024 CT BRAIN WO IVC CT BRAIN IVCON Radiology STAT Unstable gait Postural dizziness Confusion and disorientation Diplopia Expected: 04/20/2023, Expires: 05/19/2024 [facility] Work Phone: Comment on above: Expected: 04/20/2023 , Expires: 05/19/2024 Start: 04-10-2023 End: 06-10-2023 25-hydroxyvitamin D3 [Mass/volume] in Serum or Plasma VITAMIN D 25 HYDROXY Lab Routine Vitamin D deficiency Expected: 04/10/2023 (Approximate), Expires: 06/10/2023 [facility] Work Phone: Comment on above: Expected: 04/10/2023 (Approximate), Expires: 06/10/2023 Start: 04-10-2023 End: 06-10-2023 Comprehensive metabolic 2000 panel - Serum or Plasma COMP METABOLIC PANEL Lab Routine Chronic heart failure with preserved ejection fraction (HCC) PAF (paroxysmal atrial fibrillation) (HCC) Essential hypertension, benign Hx of four vessel coronary artery bypass graft Mixed hyperlipidemia Expected: 04/10/2023 (Approximate), Expires: 06/10/2023 [facility] Work Phone: Comment on above: Expected: 04/10/2023 (Approximate), Expires: 06/10/2023 Start: 04-10-2023 End: 06-10-2023 Iron and Iron binding capacity panel - Serum or Plasma IRON + TIBC Lab Routine Iron deficiency Expected: 04/10/2023 (Approximate), Expires: 06/10/2023 [facility] Work Phone: Comment on above: Expected: 04/10/2023 (Approximate), Expires: 06/10/2023 Start: 04-10-2023 End: 06-10-2023 Lipid 1996 panel - Serum or Plasma LIPID PANEL BASIC Lab Routine Mixed hyperlipidemia Expected: 04/10/2023 (Approximate), Expires: 06/10/2023 [facility] Work Phone: Comment on above: Expected: 04/10/2023 (Approximate), Expires: 06/10/2023 Start: 04-10-2023 End: 06-10-2023 Natriuretic peptide.B prohormone N-Terminal [Mass/volume] in Serum or Plasma NT PRO BNP Lab Routine Chronic heart failure with preserved ejection fraction (HCC) Expected: 04/10/2023 (Approximate), Expires: 06/10/2023 [facility] Work Phone: Comment on above: Expected: 04/10/2023 (Approximate), Expires: 06/10/2023 Start: 04-10-2023 End: 06-10-2023 Thyrotropin [Units/volume] in Serum or Plasma TSH BLD Lab Routine Hypothyroidism, unspecified type Expected: 04/10/2023 (Approximate), Expires: 06/10/2023 [facility] Work Phone: Comment on above: Expected: 04/10/2023 (Approximate), Expires: 06/10/2023 Start: 04-10-2023 End: 06-10-2023 Thyroxine (T4) free [Mass/volume] in Serum or Plasma T4 FREE/FREE THYROX Lab Routine Hypothyroidism, unspecified type Expected: 04/10/2023 (Approximate), Expires: 06/10/2023 [facility] Work Phone: Comment on above: Expected: 04/10/2023 (Approximate), Expires: 06/10/2023 Start: 04-09-2023 End: 06-09-2023 Basic metabolic 2000 panel - Serum or Plasma BASIC METABOLIC PNL Lab Routine Chronic heart failure with preserved ejection fraction (HCC) Expected: 04/09/2023 (Approximate), Expires: 06/09/2023 [facility] Work Phone: Comment on above: Expected: 04/09/2023 (Approximate), Expires: 06/09/2023 Start: 04-09-2023 End: 06-09-2023 Natriuretic peptide.B prohormone N-Terminal [Mass/volume] in Serum or Plasma NT PRO BNP Lab Routine Chronic heart failure with preserved ejection fraction (HCC) Expected: 04/09/2023 (Approximate), Expires: 06/09/2023 [facility] Work Phone: Comment on above: Expected: 04/09/2023 (Approximate), Expires: 06/09/2023 Start: 03-12-2023 Hepatitis B surface antibody level LDL CHOLESTEROL [facility] Start: 11-12-2022 Hepatitis B surface antibody level LDL CHOLESTEROL [facility] Start: 11-09-2022 ADVANCE DIRECTIVE DISCUSSION ADVANCE DIRECTIVE DISCUSSION [facility] Start: 11-09-2022 DEPRESSION ASSESSMENT DEPRESSION ASS ESSMENT [facility] Start: 11-05-2022 End: 01-05-2023 CBC W Auto Differential panel - Blood CBC + DIFF Lab Routine MDS (myelodysplastic syndrome) (HCC) Expected: 11/05/2022, Expires: 01/05/2023 [facility] Work Phone: Comment on above: Expected: 11/05/2022 , Expires: 01/05/2023 Start: 11-05-2022 End: 01-05-2023 Erythropoietin (EPO) [Units/volume] in Serum or Plasma ERYTHROPOIETIN/EPO Lab Routine MDS (myelodysplastic syndrome) (HCC) Expected: 11/05/2022, Expires: 01/05/2023 [facility] Work Phone: Comment on above: Expected: 11/05/2022 , Expires: 01/05/2023 Start: 10-09-2022 End: 12-09-2022 Basic metabolic 2000 panel - Serum or Plasma BASIC METABOLIC PNL Lab Routine Complete heart block (HCC) Paroxysmal atrial fibrillation (HCC) Expected: 10/09/2022 (Approximate), Expires: 12/09/2022 [facility] Work Phone: Comment on above: Expected: 10/09/2022 (Approximate), Expires: 12/09/2022 Start: 10-09-2022 End: 12-09-2022 CBC W Auto Differential panel - Blood [facility] Work Phone: Comment on above: Expected: 10/09/2022 (Approximate), Expires: 12/09/2022 Expected: 10/09/2022 , Expires: 12/09/2022 Start: 10-09-2022 End: 12-09-2022 COPPER BLOOD COPPER BLOOD Lab Routine Macrocytic anemia Expected: 10/09/2022, Expires: 12/09/2022 [facility] Work Phone: Comment on above: Expected: 10/09/2022 , Expires: 12/09/2022 Start: 10-09-2022 End: 12-09-2022 Erythropoietin (EPO) [Units/volume] in Serum or Plasma ERYTHROPOIETIN/EPO Lab Routine Macrocytic anemia Expected: 10/09/2022, Expires: 12/09/2022 [facility] Work Phone: Comment on above: Expected: 10/09/2022 , Expires: 12/09/2022 Start: 10-09-2022 End: 12-09-2022 Iron and Iron binding capacity panel - Serum or Plasma IRON + TIBC Lab Routine Anemia, unspecified type Iron deficiency Expected: 10/09/2022 (Approximate), Expires: 12/09/2022 [facility] Work Phone: Comment on above: Expected: 10/09/2022 (Approximate), Expires: 12/09/2022 Start: 09-25-2022 End: 11-25-2022 CBC W Auto Differential panel - Blood CBC + DIFF Lab Routine Anemia, unspecified type Iron deficiency Expected: 09/25/2022 (Approximate), Expires: 11/25/2022 [facility] Work Phone: Comment on above: Expected: 09/25/2022 (Approximate), Expires: 11/25/2022 Start: 09-25-2022 End: 11-25-2022 Iron and Iron binding capacity panel - Serum or Plasma IRON + TIBC Lab Routine Anemia, unspecified type Iron deficiency Expected: 09/25/2022 (Approximate), Expires: 11/25/2022 [facility] Work Phone: Comment on above: Expected: 09/25/2022 (Approximate), Expires: 11/25/2022 Start: 09-18-2022 COVID-19 VACCINE (6 - Pfizer risk series) COVID-19 VACCINE (6 - Pfizer risk series) [facility] Start: 09-11-2022 End: 11-11-2022 25-hydroxyvitamin D3 [Mass/volume] in Serum or Plasma VITAMIN D 25 HYDROXY Lab Routine Vitamin D deficiency Expected: 09/11/2022 (Approximate), Expires: 11/11/2022 [facility] Work Phone: Comment on above: Expected: 09/11/2022 (Approximate), Expires: 11/11/2022 Start: 09-11-2022 End: 11-11-2022 CBC W Auto Differential panel - Blood CBC + DIFF Lab Routine Paroxysmal atrial fibrillation (HCC) Anemia, unspecified type 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 Expected: 09/11/2022 (Approximate), Expires: 11/11/2022 [facility] Work Phone: Comment on above: Expected: 09/11/2022 (Approximate), Expires: 11/11/2022 Start: 09-11-2022 End: 11-11-2022 Comprehensive metabolic 2000 panel - Serum or Plasma COMP METABOLIC PANEL Lab Routine Paroxysmal atrial fibrillation (HCC) Essential hypertension, benign Hx of four vessel coronary artery bypass graft Mixed hyperlipidemia Expected: 09/11/2022 (Approximate), Expires: 11/11/2022 [facility] Work Phone: Comment on above: Expected: 09/11/2022 (Approximate), Expires: 11/11/2022 Start: 09-11-2022 End: 11-11-2022 Lipid 1996 panel - Serum or Plasma LIPID PANEL BASIC Lab Routine Mixed hyperlipidemia Expected: 09/11/2022 (Approximate), Expires: 11/11/2022 [facility] Work Phone: Comment on above: Expected: 09/11/2022 (Approximate), Expires: 11/11/2022 Start: 09-11-2022 End: 11-11-2022 Natriuretic peptide.B prohormone N-Terminal [Mass/volume] in Serum or Plasma NT PRO BNP Lab Routine Hx of four vessel coronary artery bypass graft Expected: 09/11/2022 (Approximate), Expires: 11/11/2022 [facility] Work Phone: Comment on above: Expected: 09/11/2022 (Approximate), Expires: 11/11/2022 Start: 09-11-2022 End: 11-11-2022 Thyrotropin [Units/volume] in Serum or Plasma TSH BLD Lab Routine Hypothyroidism, unspecified type Expected: 09/11/2022 (Approximate), Expires: 11/11/2022 [facility] Work Phone: Comment on above: Expected: 09/11/2022 (Approximate), Expires: 11/11/2022 Start: 09-11-2022 End: 11-11-2022 Thyroxine (T4) free [Mass/volume] in Serum or Plasma T4 FREE/FREE THYROX Lab Routine Hypothyroidism, unspecified type Expected: 09/11/2022 (Approximate), Expires: 11/11/2022 [facility] Work Phone: Comment on above: Expected: 09/11/2022 (Approximate), Expires: 11/11/2022 Start: 07-10-2022 Influenza vaccination INFLUENZA (#1) [facility] Start: 05-19-2022 End: 07-19-2022 CBC W Auto Differential panel - Blood CBC + DIFF Lab Routine Anemia, unspecified type Iron deficiency Expected: 05/19/2022 (Approximate), Expires: 07/19/2022 [facility] Work Phone: Comment on above: Expected: 05/19/2022 (Approximate), Expires: 07/19/2022 Start: 05-19-2022 End: 07-19-2022 IRON + TIBC IRON + TIBC Lab Routine Anemia, unspecified type Iron deficiency Expected: 05/19/2022, Expires: 07/19/2022 [facility] Work Phone: Comment on above: Expected: 05/19/2022 , Expires: 07/19/2022 Start: 04-23-2022 End: 06-23-2022 CBC W Auto Differential panel - Blood CBC + DIFF Lab Routine Anemia, unspecified type Expected: 04/23/2022, Expires: 06/23/2022 [facility] Work Phone: Comment on above: Expected: 04/23/2022 , Expires: 06/23/2022 Start: 04-23-2022 End: 06-23-2022 FERRITIN BLD FERRITIN BLD Lab Routine Anemia, unspecified type Expected: 04/23/2022, Expires: 06/23/2022 [facility] Work Phone: Comment on above: Expected: 04/23/2022 , Expires: 06/23/2022 Start: 04-23-2022 End: 06-23-2022 IRON + TIBC IRON + TIBC Lab Routine Anemia, unspecified type Expected: 04/23/2022, Expires: 06/23/2022 [facility] Work Phone: Comment on above: Expected: 04/23/2022 , Expires: 06/23/2022 Start: 04-01-2022 End: 06-01-2022 FERRITIN BLD FERRITIN BLD Lab Routine Anemia, unspecified type Iron deficiency Expected: 04/01/2022 (Approximate), Expires: 06/01/2022 [facility] Work Phone: Comment on above: Expected: 04/01/2022 (Approximate), Expires: 06/01/2022 Start: 04-01-2022 End: 06-01-2022 IRON + TIBC IRON + TIBC Lab Routine Anemia, unspecified type Iron deficiency Expected: 04/01/2022 (Approximate), Expires: 06/01/2022 [facility] Work Phone: Comment on above: Expected: 04/01/2022 (Approximate), Expires: 06/01/2022 Start: 04-01-2022 End: 06-01-2022 VITAMIN B12 BLOOD VITAMIN B12 BLOOD Lab Routine Macrocytosis Expected: 04/01/2022 (Approximate), Expires: 06/01/2022 [facility] Work Phone: Comment on above: Expected: 04/01/2022 (Approximate), Expires: 06/01/2022 Start: 12-21-2021 COVID-19 VACCINE (4 - Booster for Pfizer series) COVID-19 VACCINE (4 - Booster for Pfizer series) [facility] Start: 11-09-2021 ADVANCE DIRECTIVE DISCUSSION ADVANCE DIRECTIVE DISCUSSION [facility] Start: 11-09-2021 DEPRESSION ASSESSMENT DEPRESSION ASS ESSMENT [facility] Start: 09-28-2020 End: 09-28-2020 Appointment Appointment [facility] Work Phone: Start: 09-28-2020 End: 09-28-2020 Radex ankle complete minimum 3 views XR ANKLE 3 VWS-RT [facility] Work Phone: Start: 2010 RSV Vaccine (1 - 1-d ose 75+ series) RSV Vaccine (1 - 1-dose 75+ series) [facility] Start: 1995 RSV Vaccine (1 - 1-d ose 60+ series) RSV Vaccine (1 - 1-dose 60+ series) [facility] Start: 1953 Anxiety Screening Anxiety Screening [facility] Start: 1953 Depression Screening Depression Scre ening [facility] Anion gap in Serum o r Plasma [facility] Bilirubin measuremen t, urine [facility] BONE MARROW ANALYSIS BONE MARROW ANALYSIS Lab Routine Macrocytic anemia 10/24/2022 12:31 PM EST [facility] Work Phone: BONE MARROW CHROMOSO ME ANAL BONE MARROW CHROMOSOME ANAL Lab Routine Macrocytic anemia Ordered: 10/24/2022 [facility] Work Phone: Comment on above: Ordered: 10/24/2022 BUN/Creatinine ratio [facility] Calcium [Mass/volume ] in Serum or Plasma [facility] Carbon dioxide, tota l [Moles/volume] in Central venous blood [facility] CBC W Auto Different ial panel - Blood CBC + DIFF Lab Routine Macrocytic anemia Ordered: 10/24/2022 [facility] Work Phone: Comment on above: Ordered: 10/24/2022 End: 12-12-2023 CBC W Auto Differential panel - Blood CBC + DIFF Lab STAT 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) 4 Occurrences starting 12/12/2022 until 12/12/2023, 1 completed [facility] Work Phone: Comment on above: 4 Occurrences starti ng 12/12/2022 until 12/12/2023, 1 completed End: 03-08-2024 CBC W Auto Differential panel - Blood CBC + DIFF Lab STAT 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) Every 3 weeks for 6 Occurrences starting 03/09/2023 until 03/08/2024, 1 completed [facility] Work Phone: Comment on above: Every 3 weeks for 6 Occurrences starting 03/09/2023 until 03/08/2024, 1 completed CHROM ANAL W RFX MDS FISH CHROM ANAL W RFX MDS FISH Lab Routine Macrocytic anemia 10/24/2022 12:31 PM EST [facility] Work Phone: End: 12-12-2023 Comprehensive metabolic 2000 panel - Serum or Plasma COMP METABOLIC PANEL Lab STAT 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) 4 Occurrences starting 12/12/2022 until 12/12/2023, 1 completed [facility] Work Phone: Comment on above: 4 Occurrences starti ng 12/12/2022 until 12/12/2023, 1 completed End: 03-07-2024 Comprehensive metabolic 2000 panel - Serum or Plasma COMP METABOLIC PANEL Lab STAT 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) Every 3 weeks for 6 Occurrences starting 03/09/2023 until 03/07/2024, 1 completed [facility] Work Phone: Comment on above: Every 3 weeks for 6 Occurrences starting 03/09/2023 until 03/07/2024, 1 completed Creatinine [Mass/vol ume] in Serum or Plasma [facility] Diagnostic bone bonnie ow biopsies IMAGING GUIDED BIOPSY BONE MARROW (HEMATOLOGY) Radiology Routine Macrocytic anemia Ordered: 10/09/2022 [facility] Work Phone: Comment on above: Ordered: 10/09/2022 Digoxin [Mass/volume ] in Serum or Plasma [facility] DNA EXTRACTION BONE MARROW (BUFFY COAT) DNA EXTRACTION BONE MARROW (BUFFY COAT) Lab Routine Macrocytic anemia 10/24/2022 12:31 PM [facility] Work Phone: ECG COMPLETE ECG COMPLETE ECG Routine Benign hypertension 06/10/2022 11:28 AM [facility] Work Phone: ECG COMPLETE ECG COMPLETE ECG Routine Chronic atrial fibrillation (HCC) 04/07/2025 11:13 AM [facility] Work Phone: FLOW CYTOMETRY BONE MARROW HOLD (BMHOLD) FLOW CYTOMETRY BONE MARROW HOLD (BMHOLD) Lab Routine Macrocytic anemia 10/24/2022 12:31 PM [facility] Work Phone: FLT3 ITD HN BONE MARROW FLT3 ITD HN BONE MARROW Lab Routine Macrocytic anemia 10/24/2022 12:31 PM [facility] Work Phone: Glucose [Mass/volume ] in Serum or Plasma [facility] Hemoglobin [Presence ] in Urine [facility] Hemoglobin.gastroint chiquitain alHenriettalower [Presence] in Stool by Immunoassay FECAL OCCULT BLOOD TEST Lab Routine Anemia, unspecified type Iron deficiency Macrocytosis Ordered: 03/18/2022 [facility] Work Phone: Comment on above: Ordered: 03/18/2022 Hepb vaccine adult 3 dose schedule for im use HEP B VACCINE, 3-DOSE, AGE 20+ YR (ENGERIX-B, RECOMBIVAX HB) Immunization/Injection Routine Need for hepatitis B booster vaccination Ordered: 05/06/2023 [facility] Work Phone: Comment on above: Ordered: 05/06/2023 Lactic acid measurement [facility] Measurement of keton es in urine using dipstick [facility] Measurement of renal function [facility] Microscopic urinalysis [facility] End: 06-07-2023 Mri spinal canal lumbar w/o contrast material MRI LUMBAR SPINE WO IVCON Radiology Routine Spinal stenosis of lumbar region with neurogenic claudication 1 Occurrences starting 05/08/2022 until 06/07/2023 [facility] Work Phone: Comment on above: 1 Occurrences starti ng 05/08/2022 until 06/07/2023 Mri spinal canal lum bar w/o contrast material MRI LUMBAR SPINE WO IVCON Radiology Routine Spinal stenosis of lumbar region with neurogenic claudication 05/26/2022 3:45 PM EDT [facility] Work Phone: MYELOID NGS PANEL LUIS NE MARROW MYELOID NGS PANEL BONE MARROW Lab Routine Macrocytic anemia 10/24/2022 12:31 PM EST [facility] Work Phone: MYELOID NGS PANEL LUIS NE MARROW MYELOID NGS PANEL BONE MARROW Lab Routine Macrocytic anemia 10/24/2022 12:31 PM EST [facility] Work Phone: Patient Education Cellulitis Dc [facility] Work Phone: Patient referral [facility] Work Phone: pH of Urine [facility] Potassium measurement [facility] PT PLAN OF CARE CERTIFICATION PT PLAN OF CARE CERTIFICATION Procedures Routine 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 Ordered: 03/21/2022 [facility] Work Phone: Comment on above: Ordered: 03/21/2022 Radex spine lumbosac ral minimum 4 views XR LUMBAR MOTION 4V AP/LAT/ FLEX/EXT Radiology Routine Spinal stenosis of lumbar region with neurogenic claudication 03/12/2022 8:43 AM EDT [facility] Work Phone: Serum chloride measurement [facility] Sodium measurement [facility] Specific gravity of Urine [facility] Urea nitrogen [Mass/volume] in Serum or Plasma [facility] Urinalysis, blood, qualitative [facility] Urine dipstick for glucose [facility] Urine dipstick for leukocyte esterase [facility] Urine dipstick for nitrite [facility] Urine dipstick for protein [facility] Urine examination [facility] Urine microscopy: epithelial cells [facility] Urine Microscopy: wh ite cells [facility] Urobilinogen [Presen ce] in Urine [facility] End: 05-05-2024 US ARM VEIN DVT UNL VAS LAB US ARM VEIN DVT UNL VAS LAB Vascular Lab STAT 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) Arm swelling 1 Occurrences starting 05/05/2023 until 05/05/2024 [facility] Work Phone: Comment on above: 1 Occurrences starti ng 05/05/2023 until 05/05/2024 End: 04-23-2024 US DVT LOWER BILATERAL US DVT LOWER BILATERAL Radiology STAT Traumatic ecchymosis of foot, right, initial encounter Bilateral calf pain Venous stasis of both lower extremities 1 Occurrences starting 03/25/2023 until 04/23/2024 [facility] Work Phone: Comment on above: 1 Occurrences starti ng 03/25/2023 until 04/23/2024 End: 06-12-2024 US DVT LOWER RIGHT US DVT LOWER RIGHT Radiology STAT Right leg pain 1 Occurrences starting 05/14/2023 until 06/12/2024 [facility] Work Phone: Comment on above: 1 Occurrences starti ng 05/14/2023 until 06/12/2024 End: 04-26-2026 US Lower extremity vein - bilateral US DVT LOWER BILATERAL Radiology STAT Lymphedema of right lower extremity Lymphedema of both lower extremities 1 Occurrences starting 03/27/2025 until 04/26/2026 [facility] Work Phone: Comment on above: 1 Occurrences starti ng 03/27/2025 until 04/26/2026 End: 02-20-2025 XR Chest PA and Lateral XR CHEST 2V FRONTAL/LAT Radiology Routine Chronic heart failure with preserved ejection fraction (HCC) 1 Occurrences starting 01/22/2024 until 02/20/2025 [facility] Work Phone: Comment on above: 1 Occurrences starti ng 01/22/2024 until 02/20/2025 XR Chest PA and Lateral XR CHEST 2V FRONTAL/LAT Radiology Routine Chronic heart failure with preserved ejection fraction (HCC) 01/22/2024 12:19 PM EDT [facility] Work Phone: End: 01-21-2025 XR Elbow - right AP and Lateral and oblique XR ELBOW SPECIAL VIEWS AP/LAT/OTHER RIGHT Radiology Routine Right elbow pain Monoarthritis of elbow, right 1 Occurrences starting 12/23/2023 until 01/21/2025 [facility] Work Phone: Comment on above: 1 Occurrences starti ng 12/23/2023 until 01/21/2025 XR Elbow - right AP and Lateral and oblique XR ELBOW SPECIAL VIEWS AP/LAT/OTHER RIGHT Radiology Routine Right elbow pain Monoarthritis of elbow, right 12/23/2023 12:39 PM EST [facility] Work Phone: End: 06-28-2023 XR KNEE LIMITED 2V AP/LAT RIGHT XR KNEE LIMITED 2V AP/LAT RIGHT Radiology Routine Pes anserine bursitis Acute pain of right knee 1 Occurrences starting 05/29/2022 until 06/28/2023 [facility] Work Phone: Comment on above: 1 Occurrences starti ng 05/29/2022 until 06/28/2023 [facility] MR [facility] Lab [facility] Immunizations Immunization Date Immunization Notes Care Provider [facility] 08-29-2024 COVID-19 vaccine, ag e 12+ yr (PFIZER-BIONTECH COMIRNATY) Arabella Moreno TOOL ROOM SUPERVISOR.TUMOR REGISTRAR Work Phone: [facility] 08-22-2024 Seasonal trivalent influenza vaccine, adjuvanted, preservative free Arabella Moreno TOOL ROOM SUPERVISOR.TUMOR REGISTRAR Work Phone: [facility] 08-22-2024 influenza virus vaccine, unspecified formulation Injection Wstr Work Phone: [facility] 09-22-2023 COVID-19 vaccine, ag e 12+ yr (PFIZER-BIONTECH COMIRNATY) Arabella Moreno TOOL ROOM SUPERVISOR.TUMOR REGISTRAR Work Phone: [facility] 07-24-2023 influenza (HD-IIV4) vaccine, age 65+ yr, high dose, quadrivalent, PF (FLUZONE HIGH-DOSE) Arabella Bates TOOL ROOM SUPERVISOR.TUMOR REGISTRAR Work Phone: [facility] 07-24-2023 influenza virus vaccine, unspecified formulation [place] Em RN Work Phone: [facility] 07-24-2022 COVID-19 vaccine, ag e 12+ yr, bivalent booster (PFIZER-BIONTECH) Israel Pettyjuan DO Work Phone: [facility] 07-24-2022 influenza, high-dose , quadrivalent vaccine (FLUZONE HIGH DOSE QUADRIVALENT) Israel Pruitt DO Work Phone: [facility] 07-24-2022 influenza virus vaccine, unspecified formulation Iram Johnson TOOL ROOM SUPERVISOR.TUMOR REGISTRAR Work Phone: [facility] 05-19-2022 COVID-19 original vaccine, age 12+ yr, monovalent (PFIZER-BIONTECH - GEE TOP) Israel Edmond DO Work Phone: [facility] 05-19-2022 COVID-19 vaccine, ag e 12+ yr (PFIZER-BIONTECH - PURPLE TOP) Israel Pruitt DO Work Phone: [facility] Work Phone: 08-20-2021 COVID-19 vaccine, ag e 12+ yr (PFIZER-BIONTECH - PURPLE TOP) Iram Johnson TOOL ROOM SUPERVISOR.TUMOR REGISTRAR Work Phone: [facility] 08-09-2021 influenza, high-dose , quadrivalent vaccine (FLUZONE HIGH DOSE QUADRIVALENT) Iram Johnson TOOL ROOM SUPERVISOR.TUMOR REGISTRAR Work Phone: [facility] 12-25-2020 COVID-19 vaccine, ag e 12+ yr (PFIZER-BIONTECH - PURPLE TOP) Iram Johnson TOOL ROOM SUPERVISOR.TUMOR REGISTRAR Work Phone: [facility] 12-04-2020 COVID-19 vaccine, ag e 12+ yr (PFIZER-BIONTECH - PURPLE TOP) Iram Johnson TOOL ROOM SUPERVISOR.TUMOR REGISTRAR Work Phone: [facility] 10-10-2020 influenza, high dose seasonal, preservative-free Iram Johnson TOOL ROOM SUPERVISOR.TUMOR REGISTRAR Work Phone: [facility] Work Phone: 07-05-2020 zoster vaccine recombinant Iram Johnson TOOL ROOM SUPERVISOR.TUMOR REGISTRAR Work Phone: [facility] 05-04-2020 zoster vaccine recombinant Iram Johnson TOOL ROOM SUPERVISOR.TUMOR REGISTRAR Work Phone: [facility] 08-24-2019 influenza, high dose seasonal, preservative-free Iram Johnson TOOL ROOM SUPERVISOR.TUMOR REGISTRAR Work Phone: [facility] Work Phone: 09-16-2018 influenza, high dose seasonal, preservative-free Iram Johnson TOOL ROOM SUPERVISOR.TUMOR REGISTRAR Work Phone: [facility] 08-25-2017 influenza, high dose seasonal, preservative-free Iram Johnson TOOL ROOM SUPERVISOR.TUMOR REGISTRAR Work Phone: [facility] 08-11-2016 influenza, high dose seasonal, preservative-free Iram Johnson TOOL ROOM SUPERVISOR.TUMOR REGISTRAR Work Phone: [facility] 10-03-2015 influenza, seasonal, injectable Iram Johnson TOOL ROOM SUPERVISOR.TUMOR REGISTRAR Work Phone: [facility] 07-25-2015 tetanus toxoid, redu jeff diphtheria toxoid, and acellular pertussis vaccine, adsorbed Iram Johnson TOOL ROOM SUPERVISOR.TUMOR REGISTRAR Work Phone: [facility] 01-02-2015 pneumococcal conjuga te vaccine, 13 valent Iram Johnson TOOL ROOM SUPERVISOR.TUMOR REGISTRAR Work Phone: [facility] 09-07-2014 influenza, seasonal, injectable Iram Johnson TOOL ROOM SUPERVISOR.TUMOR REGISTRAR Work Phone: [facility] 08-17-2012 influenza virus vaccine, unspecified formulation Iram Johnson TOOL ROOM SUPERVISOR.TUMOR REGISTRAR Work Phone: [facility] 08-19-2011 influenza virus vaccine, unspecified formulation Iram Johnson TOOL ROOM SUPERVISOR.TUMOR REGISTRAR Work Phone: [facility] 08-13-2010 influenza virus vaccine, unspecified formulation Iram Johnson TOOL ROOM SUPERVISOR.TUMOR REGISTRAR Work Phone: [facility] Work Phone: 08-01-2009 influenza virus vaccine, unspecified formulation Iram Johnson TOOL ROOM SUPERVISOR.TUMOR REGISTRAR Work Phone: [facility] 11-20-2008 zoster vaccine, live Iram ascencio TOOL ROOM SUPERVISOR.TUMOR REGISTRAR Work Phone: [facility] Work Phone: 10-03-2008 influenza virus vaccine, whole virus Iram Johnson TOOL ROOM SUPERVISOR.TUMOR REGISTRAR Work Phone: [facility] 09-21-2007 influenza virus vaccine, whole virus Iram Johnson TOOL ROOM SUPERVISOR.TUMOR REGISTRAR Work Phone: [facility] 02-07-2005 tetanus and diphther ia toxoids, adsorbed, preservative free, for adult use (2 Lf of tetanus toxoid and 2 Lf of diphtheria toxoid) Iram Johnson TOOL ROOM SUPERVISOR.TUMOR REGISTRAR Work Phone: [facility] 09-08-2001 pneumococcal polysaccharide vaccine, 23 valent Iram Johnson TOOL ROOM SUPERVISOR.TUMOR REGISTRAR Work Phone: [facility] 11-27-1999 hepatitis A vaccine, unspecified formulation Iram Johnson TOOL ROOM SUPERVISOR.TUMOR REGISTRAR Work Phone: [facility] 11-27-1999 hepatitis B vaccine, adult dosage Iram Johnson TOOL ROOM SUPERVISOR.TUMOR REGISTRAR Work Phone: [facility] 05-17-1999 hepatitis B vaccine, adult dosage Iram Johnson TOOL ROOM SUPERVISOR.TUMOR REGISTRAR Work Phone: [facility] 04-10-1999 hepatitis A vaccine, unspecified formulation Iram Johnson TOOL ROOM SUPERVISOR.TUMOR REGISTRAR Work Phone: [facility] 04-10-1999 hepatitis B vaccine, adult dosage Iram Johnson TOOL ROOM SUPERVISOR.TUMOR REGISTRAR Work Phone: [facility] Payers Date Payer Category Payer Self-pay 2023 Medicare (Managed Care) [employer] [facility] H[facility] [id number] 2023 Unknown ANTHEM BLUE CROS S AND BLUE SHIELD ANTHEM MEDICARE ADVANTAGE HMO [id number] 2023-Present [phone] [address] [place] [address] O [id number] 2023 Medicare [id number] 2020 Medicare UHC AARP MEDICAR E [facility] AARP MEDICARE O [id number] 2020-Present [phone] [address] [address] [place] [address] O [id number] 2000 Medicare [id number] 2000 Medicare [id number] Medicare [id number] Unknown [facility] [id number] Unknown [id number] Unknown [id number] Unknown [id number] Unknown [id number] Unknown [id number] Social History Date Type Detail Facility Start: 05-14-2023 End: 05-14-2023 Assertion Unknown if ever smoked [facility] Work Phone: Start: 08-19-2011 End: 09-27-2024 Tobacco smoking status NHIS Ex-smoker [facility] End: 08-11-1989 History of tobacco use Current smoker [facility] Start: 12-10-2021 End: 06-05-2025 Alcohol intake Current drinker of alcohol (finding) [facility] Start: 12-10-2021 End: 04-14-2023 Alcohol intake [facility] Start: 07-18-2020 End: 12-10-2022 History SDOH Alcohol Frequency 5 [facility] Start: 07-18-2020 End: 12-10-2022 History SDOH Alcohol Std Drinks 1 [facility] Start: 08-04-2012 History SDOH Alcohol Comment 1-2 beers per week [facility] Start: 07-18-2020 End: 12-10-2022 History SDOH Social Connections Get Together 2 [facility] Start: 07-18-2020 End: 12-10-2022 History SDOH Social Connections Confucianist 3 [facility] Start: 07-18-2020 End: 12-10-2022 History SDOH Physical Activity MPS 4 [facility] Start: 11-07-2019 Education 18 [facility] Start: 1935 Sex Assigned At Male [facility] Start: 02-16-2022 End: 10-06-2022 Exposure to SARS-CoV-2 (event) Not sure [facility] End: 08-11-1989 History of tobacco use Cigarette Smoker [facility] Start: 08-19-2011 End: 09-27-2024 Tobacco use and exposure Smokeless tobacco non-user [facility] Start: 07-17-2022 Tobacco Comment quit 18-19 years ago [facility] Start: 12-10-2022 History SDOH Social Connections Living 8 [facility] Start: 03-27-2023 None [facility] Start: 03-27-2023 Non-smoker [facility] Start: 12-09-2022 End: 04-14-2023 Social connection and isolation panel [facility] Do you belong to any clubs or organizations such as restoration groups, unions, fraternal or athletic groups, or school groups? Yes [facility] Are you now , , , , never or living with a partner? Living with partner [facility] How often to you hav e a drink containing alcohol? 2-4 times a month [facility] How many standard dr inks containing alcohol do you have on a typical day? 1 or 2 [facility] How often do you hav e 6 or more drinks on 1 occasion? Never [facility] Start: 10-10-2012 How hard is it for you to pay for the very basics like food, housing, medical care, and heating Not hard at all [facility] Do you feel stress - tense, restless, nervous, or anxious, or unable to sleep at night because your mind is troubled all the time - these days [OSQ] To some extent [facility] (I/We) worried colleen er (my/our) food would run out before (I/we) got money to buy more. Never true [facility] In the past 12 month s, was there a time when you were not able to pay the mortgage or rent on time? No [facility] Start: 03-12-2019 Gender identity Identifies as male gender (finding) [facility] Start: 03-12-2019 Sexual orientation Heterosexual (finding) [facility] Start: 06-16-2023 End: 12-23-2023 Alcohol intake Ex-drinker (finding) [facility] Start: 06-12-2023 Alcohol Comment rare glass of wine. [facility] Start: 06-16-2024 Alcohol Comment occ [facility] History of tobacco use Passive smoker [facility] How often to you hav e a drink containing alcohol? Monthly or less [facility] Medical Equipment Procedure Code Equipment Code Equipment Origin al Text Equipment Identifier Dates Manny Bn Smpx P Speedset Fd Fst - [id number] Start: 12-12-2014 Standard Humeral Head [id number] Start: 12-12-2014 Comp Paras 48mm G b Adv Anchr - [id number] Start: 12-12-2014 Stem Hum 14mm Gl ob Ap Shldr - [id number] Start: 12-12-2014 Assemb Tapr Glob Ap 135d Shldr - [id number] Start: 12-12-2014 Promri Edora 8 Adriana [id number] Start: 09-17-2022 Adair Pena 53 [id number] [...] 60cm Central Venous Without Suture Plug - [id number] Start: 12-05-2022 Ra Lead Biotronik- 2 [id number] Start: 09-17-2022 Rv Lead Biotronik- 2 [id number] Start: 09-17-2022 Adair Pena 60 [id number] Start: 09-17-2022 Goals Date Patient Goal [...] Salty Six. This is the name the [employer] uses for: 1. Breads, rolls, [...] as ketchup INstructed on and sent in Spread[employer] message. Ginna Em RN July 05, 2024 2:06 PM Personal health goal Comment on above: Formatting of this n ote might be different from the original. Patient has the following general goals: Two PCP visits annually Patient Stated goal: wants to do regular exercise throughout the year. Patient will meet these goals by 10.07.24 (describe interventions done by PCC) Formatting of [...] Total score [AUDIT-C] 1 02/01/20 11:11 AM EDT Bird Lock [facility] 05-18-2023 Functional status Ambulates;Chair [facility] Work Phone: 09-18-2022 Are you deaf, or do you have serious difficulty hearing No 09/18/2022 7:23 PM Citlalli Abarca RN No [facility] 09-18-2022 Are you blind, or do you have serious difficulty seeing, even when wearing glasses No 09/18/2022 7:23 PM Citlalli Abarca, JESSY No [facility] 09-18-2022 Do you have serious difficulty walking or climbing stairs No 09/18/2022 7:06 PM Citlalli Abarca, JESSY No [facility] 09-18-2022 Do you have difficul ty dressing or bathing No 09/18/2022 7:06 PM Citlalli Abarca, JESSY No [facility] 09-18-2022 Because of a physica l, mental, or emotional condition, do you have difficulty doing errands alone such as visiting a physician's office or shopping No 09/18/2022 7:06 PM Citlalli Abarca, JESSY No [facility] Mental Status Date Assessment Result Facility 06-18-2025 Cognitive function Level Of Cons ciousness Awake;Alert;Appropriate;Fol lows Commands [facility] Work Phone: 05-22-2023 Cognitive function Awake;Alert;A ppropriate;Fol lows Commands [facility] Work Phone: 05-18-2023 Cognitive function Voice/Name [facility] Work Phone: 05-14-2023 Cognitive function Level Of Cons ciousness Awake;Alert;Appropriate;Fol lows Commands [facility] Work Phone: 09-18-2022 Because of a physica l, mental, or emotional condition, do you have serious difficulty concentrating, remembering, or making decisions No 09/18/2022 7:06 PM Citlalli Abarca RN No [facility] Clinical Notes 12-14-2012 to 06-23-2025 Note Date & Type Note Facility 06-23-2025 History and physical note [facility] 06-23-2025 Discharge summary [facility] 06-23-2025 Discharge summary Note Date/Time June 23, 2025 3:43pm [facility] Medical Records Department [address] [place] [address] Emergency Department Summary 06/23/25 MR#: [id number] Acct: [id number] Name: SRINI LUIS Rep #:[id number] : 1935 89 From: Jere Gorman MD PCP: Dr. Ronaldo Pleitez MD Status:R EG ER Location: ED HPI History of Present Illness Chief Complaint: Cellulitis Informant: patient Onset/Context/Timing Onset: Days Context: Gradual Onset Timing: Continuous Current Severity: Moderate Maximum Severity: Moderate Narrative Narrative: 89-year-old male history of stroke, prior CABG, A-fib on Xarelto and history of chronic myelogenous leukemia. Also CKD and CHF. Has chronic bilateral lower extremity swelling he developed cellulitis of the left lower leg for about a week he has been on oral antibiotics through his [facility] physicians this redness is getting worse so they sent him in to be admitted for IV antibiotics. He denies any fever or chills. Prior similar symptoms: No Recent Illness/Hospitalization: No [facility] Medical History Cellulitis CMML (chronic myelomonocytic leukemia) Lumbar stenosis Nocturnal hypoxemia Osteoarthritis Atheroembolism of foot Myasthenia gravis Pacemaker (~09/2022) Cerebral vascular accident (~08/2022) Complete heart block Coronary artery disease (~09/2022) Hypothyroidism HLD (hyperlipidemia) Benign essential HTN Home Medications ?Medication ?Instructions ?Recorded ?Last Taken ?Type aspirin 81 mg tablet,delayed 81 mg PO DAILY 04/09/23 0 05/14/23 History release cholecalciferol (vitamin D3) 25 25 mcg PO DAILY 05/14/23 History mcg (1,000 unit) tablet cyanocobalamin (vitamin B-12) 1,000 mcg PO DAILY 04/0905/14/23 History 1,000 mcg capsule multivitamin 1 tab PO DAILY 04/09/2305/01 History rivaroxaban 20 mg tablet (Xarelto) 20 mg PO QPM 05/13/23 History atorvastatin 20 mg tablet 20 mg PO QHS 05/14/23 History folic acid 1 mg tablet 1 mg PO BREAKFAST 30 days #3 0 tabs 05/18/23 Unknown Rx polyethylene glycol 3350 17 17 g PO DAILY PRN constipa tion 05/20/23 Unknown Rx gram/dose oral powder (Miralax) #238 grams furosemide 40 mg tablet 40 mg PO DAILY 06/18/25 Unkn own History levothyroxine 100 mcg tablet 100 mcg PO DAILY 06/18/25 Unknown History (Synthroid) cephalexin 500 mg capsule 500 mg PO Q8H 5 days #15 cap s 06/19/25 Unknown Rx metolazone 5 mg tablet 5 mg PO DAILY 06/23/25 Unkno wn History nitroglycerin 0.4 mg sublingual 0.4 mg sublingual Q5M 06/23/25 Unknown History tablet Allergy/AdvReac Type Severity Reaction Status Date / Time No Known Allergies Allergy Verified 06/23/25 13:27 Family History Mother Heart disease Father Heart [...] type: does not use ROS ROS ED ROS Narrative Left leg swelling and redness. Discomfort. Constitutional Constitutional ED: Denies chills or fever(s) Eyes Eyes: Denies blurry vision ENT ENT ED: Denies ear pain Cardiovascular Cardiovascular: Denies chest pain Respiratory/Chest Respiratory/Chest: Denies cough or dyspnea Gastrointestinal Gastrointestinal: Denies abdominal pain Genitourinary Genitourinary ED: Denies dysuria or hematuria Musculoskeletal Musculoskeletal: Denies arthralgias or back pain Integumentary Reports rash; Denies abscess or Abrasions Neurologic Neurologic: Denies headache(s) Psychiatric Psychiatric: Denies anxiety Endocrine Endocrinology: Denies cold intolerance Hematologic/Lymphatic Hematologic/Lymphatic: Reports none Allergic/Immunologic Allergic/Immunologic ED: Denies mouth swelling, tongue swelling or urticaria EXAM Physical Exam Narrative Exam Narrative: 89-year-old female vital signs are stable. She is afebrile. She does not look septic or toxic. She is in no acute distress. Pulse ox is 93% on room air no signs of hypoxia. H EENT exam pupils round react light. Mytrex members. Neck nontender. Lungs clear to auscultation bilaterally. Heart rate about 60 no murmur. Chest wall ribs nontender. Abdomen soft nontender. Moving all 4 extremities. Has bilateral lower extremity peripheral edema. He has redness from his toes all the way up to his knee on the left. Consistent with cellulitis. Does not eli. He has skin sore on the top of his foot. Dorsi plantarflexion intact. Calves are nontender. There is no cords. Neurologically he is awake alert. Answering questions following commands. Const Vital Signs: 06/23/25 13:25 Temperature 97.9 F Temperature Source Oral Pulse Rate 61 Respiratory Rate 16 Blood Pressure 121/72 H Blood Pressure Mean 88 Pulse Ox 93 Oxygen Delivery Method Room Air Positive well nourished and well developed; Negative for cachectic, contracturesor unkempt General Appearance ED: well developed and NAD; Negative for unkempt, cachectic, contractures, cyanotic, diaphoretic or pallor Nutritional Appearance: Negative for cachectic HEENT Reports moist mucous membranes Eyes PERRL and EOMs intact bilaterally Neck no lymphadenopathy, supple and no JVD Chest Wall inspection of chest normal and palpation of chest normal Resp normal respiratory effort and clear to auscultation bilaterally Cardio regular rate, S1 normal heart sound, S2 normal heart sound and no murmurs Rhythm: abnormal rhythm GI normal to inspection, nondistended, normoactive bowel sounds, non-tender, non-distended and no masses Palpation: soft; Negative for tender, guarding or rebound tenderness present Back/Spine no CVA tenderness Extremity Negative for normal to inspection Extremity Narrative: Bilateral lower extremity edema. Left greater than right. Cellulitis left leg from the tip of his toes to just below the knee. General Extremety ED: Yes edema and tenderness General Extremity: edema Neuro oriented x3 and CN's II-XII intact bilaterally Sensorium / Orientation: alert Motor Exam: strength 5/5 throughout Psych mental status grossly normal Appearance: Negative for unkempt Skin No no rashes or lesions noted and No no wounds Skin Narrative: Left lower extremity cellulitis. Since skin wound top the left foot. General Skin Exam: Negative for jaundice or pallor MDM MDM MDM Narrative Medical decision making narrative: 89-year-old male currently has been on Keflex at home for left lower extremity cellulitis is getting worse as of improving. Failed outpatient therapy. He is on Xarelto I do not think this is a blood clot. He will be started on IV Zosyn screening labs will speak to the hospitalist about admission. Repeat exam patient is doing well. He has received IV antibiotics. MRI spoke with the hospitalist he will be admitted. He is comfortable with the plan as his family. History & Record Review Discussion w/independent historian: Patient Additional record(s) reviewed:: Prior inpatient record, Prior outpatient record,Prior ED visit and Prior labs Lab Data Attestation: I reviewed the patient's lab results. Lab results narrative: CBC shows white count 6.8 H&H 9.729 which is his baseline chronic anemia. Platelets 230. Electrolytes show sodium 138. Gap 13. BUN and creatinine are 41 and 1.43. He does have some prior renal insufficiency. Glucose 160. Labs: Laboratory Results - last 24 hr 06/23/25 14:23 WBC 6.8 RBC 2.65 L Hgb 9.7 L Hct 29.5 L MCV 111.3 H MCH 36.6 H MCHC 32.9 RDW Std Deviation 109.9 H RDW Coeff of Luis Alberto 26.7 H Plt Count 230 MPV 10.6 Immature Gran % (Auto) 0.300 Neut % (Auto) 68.2 Lymph % (Auto) 14.5 L Calloway % (Auto) 15.5 H Eos % (Auto) 0.9 Baso % (Auto) 0.6 Absolute Neuts (auto) 4.7 Absolute Lymphs (auto) 0.99 Nucleated RBC % 0.7 Sodium 138 Potassium 3.3 Chloride 92 L Carbon Dioxide 32.5 H Anion Gap 13 BUN 41 H Creatinine 1.43 H Estim Creat Clear Calc 36.06 L Est GFR (MDRD) Non-Af 47 L BUN/Creatinine Ratio 28.4 H Glucose 160 H Calcium 9.0 Discharge Plan Triage Chief Complaint: Cellulitis ED Provider: Jere Gorman Dx/Rx/DC Orders Clinical Impression: Cellulitis of left leg, History of atrial fibrillation, History of stroke, History of chronic myeloid leukemia, Chronic anticoagulation Prescriptions: No Action levothyroxine [Synthroid] 112 mcg tablet 112 mcg PO DAILY furosemide [Lasix] 20 mg tablet 20 mg PO BID Patient Comments: 1 TAB IN THE AM AND 1 TAB QHS cyanocobalamin (vitamin B-12) 1,000 mcg capsule 1,000 mcg PO DAILY cholecalciferol (vitamin D3) 25 mcg (1,000 unit) tablet 25 mcg PO DAILY multivitamin Tablet 1 tab PO DAILY aspirin 81 mg tablet,delayed release (DR/EC) 81 mg PO DAILY Xarelto 20 mg tablet 20 mg PO QPM Rx Instructions: must administer with evening meal prochlorperazine maleate [Compazine] 10 mg tablet 10 mg PO BID PRN (Reason: nausea and vomiting) digoxin 125 mcg (0.125 mg) tablet 0.125 mg PO DAILY metoprolol tartrate 25 mg tablet 12.5 mg PO BID Patient Comments: take 1/2 tablet by mouth every 12 hours atorvastatin 20 mg tablet 20 mg PO QHS sennosides-docusate sodium [Stool Softener-Stimulant Laxat] 8.6-50 mg Tablet 2 tab PO BID PRN (Reason: constipation) 30 Days Qty: 120 0RF folic acid 1 mg Tablet 1 mg PO BREAKFAST 30 Days Qty: 30 2RF polyethylene glycol 3350 17 gram Powder In Packet 17 g PO DAILY 30 Days Qty: 30 0RF ferrous fumarate 325 mg (106 mg iron) tablet 325 mg PO DAILY 30 Days Qty: 0 0RF Rx Instructions: with meals levofloxacin 500 mg tablet 500 mg PO DAILY 6 Days Qty: 6 0RF polyethylene glycol 3350 [Miralax] 17 gram/dose powder 17 g PO DAILY PRN (Reason: constipation) Qty: 238 0RF furosemide 40 mg tablet 40 mg PO DAILY levothyroxine [Synthroid] 100 mcg tablet 100 mcg PO DAILY cephalexin 500 mg capsule 500 mg PO Q8H 5 Days Qty: 15 0RF Primary Care Provider: Ronaldo Pleitez Referrals: Ronaldo Pleitez MD [Primary Care Provider] - Print Language: Vincentian Disposition Disposition: Acute Care Hospital [facility] What to do if you have Problems For any increased pain, shortness of breath, bleeding, nausea or vomiting, chestpain, or any unexpected problems, contact your Primary Care Provider. Call [facility] ([phone]) or report to the closest Emergency Room. Call 911 if necessary. 06/23/25 1543 <Electronically signed by Jere Gorman MD> Cosigner Signature (if applicable): CC: Dr. Ronaldo Pleitez MD ~ Signed [facility] Work Phone: [phone] 666-779808-15-2025 Instructions* Patient Instructions* Ronaldo Pleitez MD - 06/23/2025 10:37 AM EDT YOUR CELLULITIS IS NOT IMPROVING. INPATIENT MANAGEMENT IS MY RECOMMENDATION. PLEASE PROCEED TO THE ER. [facility] History of Present illness Narrative* Ronaldo Pleitez MD - 06/23/2025 10:27 AM EDT Subjective Srini Luis is a 89 year old male. Srini was taking increased doses of furosemide, plus metolazone. I also increased cephalexin to 4 times a day and extended the course. His edema and redness has not improved. He was having more seepage from his leg. Review of Systems Constitutional: Negative for chills and fever. Respiratory: Negative for shortness of breath. Cardiovascular: Negative for chest pain. Skin: Positive for rash and wound. 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 ([facility]) Cva (Cerebral Vascular Accident) ([facility]) Mcc Current Use of Anticoagulant Lymphedema of Both Lower Extremities Osteoarthritis, Generalized History of Anemia Benign Hypertension Diverticulosis Nocturnal Hypoxemia Rbbb Restless Leg Syndrome Mds (Myelodysplastic Syndrome) ([facility]) Myasthenia Gravis ([facility]) Vertebral Artery Occlusion, Left Venous Stasis of Both Lower Extremities 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[facility]) Status Post Ligation of Left Atrial Appendage Pvc's (Premature Ventricular Contractions) History of Stress Test H/O Echocardiogram 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 AM and noon. metOLazone (ZAROXOLYN) 5 mg tablet Take 1 tablet by mouth once daily for 5 days. Cephalexin 500 mg tab Take 1 tablet by mouth four times daily for 5 days. atorvastatin (LIPITOR) 20 mg tablet Take [...] facility-administered medications for this visit. Objective BP 114/64 Pulse 60 Temp 36.2 C (97.1 F) Resp 16 SpO2 96% Physical Exam Cardiovascular: Comments: Erythroderma unchanged on left, worse on the right. Seepage from skin and left dorsal foot wound. Pulmonary: Effort: Pulmonary effort is normal. No respiratory distress. Musculoskeletal: Right lower le+ Edema present. Left lower le+ Edema present. ASSESSMENT/PLAN: 1. Cellulitis of left leg - ICD9: 682.6, ICD10: L03.116 (primary diagnosis) - Admission to hospital for parenteral antibiotics 2. Lymphedema of both lower extremities - ICD9: 457.1, ICD10: I89.0 - IV diuresis. 3. 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, unspecified acute renal failure type (HCC) - ICD9: 584.9, 585.3, ICD10: N17.9, N18.32 - Monitor. 4. 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 5. Chronic heart failure with preserved ejection fraction (HCC) - ICD9: 428.9, ICD10: I50.32 - Continue current medications I spoke to Dr. Gorman at [facility] for the SBAR. Patient and daughter indicated understanding and willingness to follow recommendation. Ronaldo Pleitez MD documented in this encounterVan Wert County Hospital08-13-2025 NoteUniversity Hospitals Lake [facility]08-13-2025 History of Present illness Narrative* Ronaldo Pleitez MD - 06/21/2025 11:10 AM EDT Images from the original note were not included. Subjective Srini Luis is a 89 year old male here with daughter Liza. Patient presents with: ER F/U Srini developed increased edema the past 2 weeks. He reached out to cardiology 06/16/25 and furosemide was doubled. Redness and heat of the left leg was noted this weekend, and he was seen in the ER 06/18. He was started on cephalexin 500 mg TID x 5 days. He had an outpatient venous duplex negative for DVT. He was advised close monitoring of his acute on chronic kidney disease. Outpatient managementwas recommended. His edema and redness was about the same. 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 Lymphedema of Both Lower Extremities Osteoarthritis, Generalized History of Anemia Benign Hypertension Diverticulosis Nocturnal Hypoxemia Rbbb Restless Leg Syndrome Mds (Myelodysplastic Syndrome) ([facility]) Myasthenia Gravis ([facility]) Vertebral Artery Occlusion, Left Venous Stasis of Both Lower Extremities 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[facility]) Status Post Ligation of Left Atrial Appendage Pvc's (Premature Ventricular Contractions) History of Stress Test H/O Echocardiogram 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 Respiratory: Negative for chest tightness and shortness of breath. Cardiovascular: Negative for chest pain and palpitations. Gastrointestinal: Negative for abdominal pain, diarrhea, nausea and vomiting. Genitourinary: Negative for difficulty urinating. Skin: Positive for rash and wound. Objective Pulse 72 Temp 36.2 C (97.2 F) (Temporal) Resp 16 Wt 86.3 kg (190 lb 4.1 oz) BMI 29.80 kg/m Physical Exam Constitutional: General: He is not in acute distress. Appearance: He is not toxic-appearing. Cardiovascular: Rate and Rhythm: Normal rate and regular rhythm. Heart sounds: S1 normal and S2 normal. Pulmonary: Effort: No respiratory distress. Breath sounds: No wheezing or rales. Abdominal: General: There is no distension. Tenderness: There is no abdominal tenderness. Musculoskeletal: Right lower le+ Edema present. Left lower le+ Edema present. Legs: Comments: Diffuse erythroderma left lower leg. Scattered erythema right leg. Ulcer/erosion of left dorsal foot ~3 x 2 inches. Small ulcer right anterior ankle. Skin: Findings: Erythema present. Neurological: General: No focal deficit present. Mental Status: He is alert. Comments: Wheelchair bound. ASSESSMENT/PLAN: 1. Cellulitis of left leg - ICD9: 682.6, ICD10: L03.116 (primary diagnosis) - Continue treatment with Cephalaxin (Keflex) - SEDIMENTATION RATE, WESTERGREN - C-REACTIVE PROTEIN - CEPHALEXIN 500 MG TABLET. Take one(1) tablet four (4) times daily x 5 more days. 2. Lymphedema of both lower extremities - ICD9: 457.1, ICD10: I89.0 - FUROSEMIDE 40 MG TABLET. Continue 40 mg BID. - METOLAZONE 5 MG TABLET. Start this x 5 days. 3. 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, unspecified acute renal failure type (HCC) - ICD9: 584.9, 585.3, ICD10: N17.9, N18.32 - eGFR: 58 Worsening - Increased risk of ESRD was discussed. Monitor closely. - BASIC METABOLIC PANEL 4. 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 5. Chronic heart failure with preserved ejection fraction (HCC) - ICD9: 428.9, ICD10: I50.32 - Continue current medications - FUROSEMIDE 40 MG TABLET Ronaldo Pleitez MD documented in this encounterVan Wert [facility] Hospital08-11-2025 Telephone encounter Note * Telephone Encounter - Lakesha Pabon MA - 06/19/2025 1:12 PM EDT Pt daughter called and notified per iram I think it is okay to take the increased dose of Lasix in the short-term, it will help with healingthe cellulitis along with antibiotic. Pt daughter agreeable [facility]08-11-2025 Miscellaneous Notes* Telephone Encounter - Lakesha Pabon MA - 06/19/2025 1:12 PM EDT Pt daughter called and notified per iram I think it is okay to take the increased dose of Lasix in the short-term, it will help with healingthe cellulitis along with antibiotic. Pt daughter agreeable * Telephone Encounter - Iram Johnson, JAMES - 06/19/2025 11:45 AM EDT I think it is okay to take the increased dose of Lasix in the short-term, it will help with healingthe cellulitis along with antibiotic. * Telephone Encounter - Shilpa Abraham MA - 06/19/2025 11:07 AM EDT Patient went to [facility] over the weekend for his swelling. He is being treated for Cellulitis and was given an antibiotic for a week. He did have a doppler and it was negative for a clot. She is asking if he should continue taking the increased dose of Lasix after a week? documented in this encounterVan Wert County Hospital08-11-2025 Telephone encounter Note * Telephone Encounter - Iram Johnson APRN.MAURICIO - 06/19/2025 11:45 AM EDT I think it is okay to take the increased dose of Lasix in the short-term, it will help with healingthe cellulitis along with antibiotic. [facility]08-11-2025 Telephone encounter Note* Telephone Encounter - Shilpa Abraham MA - 06/19/2025 11:07 AM EDT Patient went to [facility] over the weekend for his swelling. He is being treated for Cellulitis and was given an antibiotic for a week. He did have a doppler and it was negative for a clot. She is asking if he should continue taking the increased dose of Lasix after a week? [facility]08-05-2025 Telephone encounter Note* Telephone Encounter - Arabella Moreno APRN.CNP - 06/13/2025 8:59 AM EDT Noted Arabella Moreno APRN.CNP [facility]08-05-2025 Miscellaneous Notes* Telephone Encounter - Arabella Moreno APRN.CNP - 06/13/2025 8:59 AM EDT Noted Arabella Moreno APRN.CNP * Telephone Encounter - Jody Nesbitt MA - 06/13/2025 8:37 AM EDT Please see pt update Jody Nesbitt MA documented in this encounterVan Wert County Hospital08-05-2025 Telephone encounter Note * Telephone Encounter - Jody Nesbitt MA - 06/13/2025 8:37 AM EDT Please see pt update Jody Nesbitt MA [facility]08-01-2025 NoteHNO ID: [id number] Author: ESHA JACKSON LPN Service: ? Author Type: LICENSED NURSE Type: Progress Notes Filed: 06/09/2025 10:03 Note Text: Patient here for injection of Aranesp. Given SQ in right arm. Patient tolerated well. Esha Jackson [facility]08-01-2025 History of Present illness Narrative* Esha Jackson LPN - 06/09/2025 9:49 AM EDT Patient here for injection of Aranesp. Given SQ in right arm. Patient tolerated well. Esha Jackson LPN documented in this encounterVan Wert County Hospital07-28-2025 NoteUniversity Hospitals Lake West Medical Center07-28-2025 History of Present illness Narrative* Arbaella Moreno, TOOL ROOM SUPERVISOR.TUMOR REGISTRAR - 06/05/2025 3:05 PM EDT Images from the original note were not included. CC: Patient presents with: Recheck: Wound check-left arm HPI Recording using [employer] software for draft documentation of the visit was discussed with the patient/authorized publications sales representative; all questions welcomed and answered. Patient/authorized publications sales representative agreed to proceed Narinder Luis is a 89-year-old male, with a history of cellulitis and edema, presenting for follow-upon cellulitis. Also reports concern about increase in BLE edema. Narinder presents for follow-up on cellulitis. He sustained multiple skin tears to the left upper arm and subsequently developed cellulitis. He reports persistent bruising on his arm and has been applyingBand-Aids for physical protection after his bandage fell off. He notes no further drainage from thecellulitis site and denies fever. 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; Confirmed Blk below His by His Bundle Electrogram Chronic atrial fibrillation ([facility]) 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 ([facility]) 12/01/2022 CVA (cerebral vascular accident) ([facility]) 08/22/2022 Diverticulosis H/O echocardiogram 09/16/2022 EF 68 5 %, mod concentric LVH, mod TR, mild-mod MR with mod MAC History of anemia History of CVA (cerebrovascular accident) 08/22/2022 Pontine infarction, R>L History of stress test 10/12/2024 EF 43%, mild ischemia involving the apex 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 ARTHROPLASTY TOTAL SHOULDER 11/09/2008 right ARTHROSCOPY OF JOINT UNLISTED 1999 Elbow right CABG (4) VEIN GRAFTS & ARTERIAL GRAFT(S) 07/21/[address] [facility] COLONOSCOPY FLX DX W/COLLJ SPEC WHEN PFRMD [...] plan. Arabella Moreno APRN.MAURICIO documented in this encounterVan Wert County Hospital07-22-2025 NoteUniversity Hospitals Lake West Medical Center07-22-2025 History of Present illness Narrative* Arabella Moreno APRN.CNP - 05/30/2025 1:28 PM EDT Images from the original note were not included. CC: Patient presents with: Wound Care: Recheck wounds on left arm HPI Recording using UrgentRx software for draft documentation of the visit was discussed with the patient/authorized publications sales representative; all questions welcomed and answered. Patient/authorized publications sales representative agreed to proceed Narinder Luis is a 89-year-old male, with a history of hypercholesterolemia, presenting for follow-upon a wound on the upper arm. 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; Confirmed Blk below His by His Bundle Electrogram Chronic atrial fibrillation ([facility]) 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 ([facility]) 12/01/2022 CVA (cerebral vascular accident) ([facility]) 08/22/2022 Diverticulosis H/O echocardiogram 09/16/2022 EF 68 5 %, mod concentric LVH, mod TR, mild-mod MR with mod MAC History of anemia History of CVA (cerebrovascular accident) 08/22/2022 Pontine infarction, R>L History of stress test 10/12/2024 EF 43%, mild ischemia involving the apex Hx of CABG 07/22/2021 4 vessel CABG with ORNELAS-LAD, SVG-RI, SVG-OM, and SVG-RCA in [place] Hypertension Hypothyroidism senior care current use of anticoagulant Xarelto 20 mg daily MDS (myelodysplastic syndrome) ([facility]) 03/12/2023 Mixed hyperlipidemia Myasthenia gravis ([facility]) Last seen by neurology July 29, 2017. [...] RIGHT OP SURGERY Right 12/18/[address] [facility] ARTHROPLASTY TOTAL SHOULDER 11/09/2008 right ARTHROSCOPY OF JOINT UNLISTED 2000 [place]bow right CABG (4) VEIN GRAFTS & ARTERIAL GRAFT(S) 07/21/[address] [facility] COLONOSCOPY FLX DX W/COLLJ SPEC WHEN PFRMD [...] reported upon palpation. Minimal surrounding erythema. Third skintear below these with surrounding erythema and scant [...] seek medical attention if these occur. 2. senior care (current) use of anticoagulants (Z79.01) Anticoagulant therapy [...] plan. Arabella Moreno APRN.MAURICIO documented in this encounterVan Wert County Hospital07-22-2025 Instructions* Patient Instructions* Arabella Moreno APRN.MAURICIO - 05/30/2025 1:15 PM [...] possible, have her follow the same care routineoutlined above. - Leave the scabbed areas on [...] been sent to your preferred pharmacy ([facility]). - Take this medication with food. - [...] please contact our office. documented in this encounterVan Wert County Hospital07-18-2025 NoteHNO ID: [id number] Author: ESHA JACKSON LPN Service: ? Author Type: LICENSED NURSE Type: Progress Notes Filed: 05/26/2025 10:18 Note Text: Aranesp injection given SQ in RLQ. Patient tolerated well. Esha Jackson LPN [facility]07-18-2025 History of Present illness Narrative* Esha Jackson LPN - 05/26/2025 9:26 AM EDT Aranesp injection given SQ in RLQ. Patient tolerated well. Esha Jackson LPN documented in this encounterVan Wert County Hospital07-18-2025 Telephone encounter Note * Telephone Encounter - Lupis Clarke MA - 05/26/2025 9:00 AM EDT Patient notified and took today dose already so aware none sat/sun/ or Thursday till seen in office. Lupis Clarke MA [facility]07-18-2025 Miscellaneous Notes* Telephone Encounter - Lupis Clarke MA - 05/26/2025 9:00 AM EDT Patient notified and took today dose already so aware none sat/sun/ or Thursday till seen in office. Lupis Clarke MA * Telephone Encounter - Arabella Moreno APRN.CNP - 05/26/2025 6:26 AM EDT Please call patient and make sure he is aware to hold the Xarelto until he is seen for follow-up Ariel Moreno APRN.CNP documented in this encounterVan Wert County Hospital07-18-2025 Telephone encounter Note * Telephone Encounter - Arabella Moreno APRN.CNP - 05/26/2025 6:26 AM EDT Please call patient and make sure he is aware to hold the Xarelto until he is seen for follow-up Ariel Moreno APRN.CNP [facility]07-18-2025 NoteUniversity Hospitals Lake West Medical Center07-18-2025 History of Present illness Narrative* Arabella Moreno APRN.CNP - 05/26/2025 6:24 AM EDT Images from the original note were not included. CC: Patient presents with: Fall: fell 4 days ago. Wound is bleeding and soaking through gauze HPI Recording using ambient [employer] software for draft documentation of the visit was discussed with the patient/authorized publications sales representative; all questions welcomed and answered. Patient/authorized publications sales representative agreed to proceed Narinder Luis is a 89-year-old male, with a history of atrial fibrillation on Xarelto, presenting with persistent bleeding from multiple lacerations sustained during a fall. 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; Confirmed Blk below His by His Bundle Electrogram Chronic atrial fibrillation ([facility]) 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 ([facility]) 12/01/2022 CVA (cerebral vascular accident) ([facility]) 08/22/2022 Diverticulosis H/O echocardiogram 09/16/2022 EF 68 5 %, mod concentric LVH, mod TR, mild-mod MR with mod MAC History of anemia History of CVA (cerebrovascular accident) 08/22/2022 Pontine infarction, R>L History of stress test 10/12/2024 EF 43%, mild ischemia involving the apex 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 [...] RIGHT OP SURGERY Right 12/18/[address] [facility] ARTHROPLASTY TOTAL SHOULDER 11/09/2008 right ARTHROSCOPY OF JOINT UNLISTED 1999 Elbow right CABG (4) VEIN GRAFTS & ARTERIAL GRAFT(S) 07/21/[address] [facility] COLONOSCOPY FLX DX W/COLLJ SPEC WHEN PFRMD 09/01/2005 Colonoscopy COLONOSCOPY FLX DX W/COLLJ SPEC WHEN PFRMD 09/27/2015 Colonoscopy REMOVAL OF TONSILS,<12 Y/O S $ DUAL CHMBR PACER [id number] Left 09/17/2022 Dual Pacer ([employer]) for High Grade AV Blk below His; [...] for now. Patient and daughter agreeable. 2. senior care (current) use of anticoagulants (Z79.01) Patient is on Xarelto, which contributes to prolonged bleeding from skin tears. - Stop Xarelto until follow-up on Thursday - Monitor for any signs of excessive bleeding. I spent a total of 30 minutes on the date of the service which included preparing to see the patient, [id number] patient care, completing clinical documentation, performing a medically appropriate examination, wound management and counseling and educating the patient/family/caregiver. Prescription instructions reviewed with patient as applicable. Potential red flag symptoms discussed with the patient. Reviewed appropriate action plan to take if red flag symptoms occur. Patient agreeable to treatment plan. Arabella Moreno APRN.TUMOR REGISTRAR documented in this encounterStacey Ville [id number] Telephone encounter Note * Telephone Encounter - Ronaldo Pleitez MD - 05/23/2025 1:17 PM EDT Okay. Continue to monitor situation. [facility]07-15-20[facility] Miscellaneous Notes* Telephone Encounter - Ronaldo Pleitez MD - 05/23/2025 1:17 PM EDT Okay. Continue to monitor situation. * Telephone Encounter - Samara Baker RN - 05/23/2025 9:53 AM EDT Appears per note in appt phone comments that pt is at [facility]. Confirmed address is for [facility]. Nurse number listed in those comments- called and had to leave a msg for them to call us back. Called and spoke with terminal make up operator at [facility] and she states that pt is now in one of the Independent apartments they have. Appears nursing is no longer involved in care once pt goes to the independent side. Called and spoke with daughter Liza again who confirms pt is in an independent apartment now. Ptdoes have a pull cord for emergencies that rings to the nurses for assistance but otherwise pt doesnot receive nursing care. Liza states that pt took a Metolazone sometime and first fallwas early Thursday morning (middle of the night) and second fall was early Thursday morning- again in the middle of the night. Pt told her that he doesn't really know why he fell. Pt is using his walker. The fall on Thursday, the nurses at [facility] did not respond right away so pt called 911. Paramedics called Liza and told her that he checked out okay, did not hit his head and his VS were fine.Pt did hit his left arm and had some significant bleeding from some skin tears on that arm. Phuong states that pt states has no recollection of when he bit his tongue. He told Liza he doesn't think it occurred during one of his falls. Liza is surprised he has no recollection as she saidthere seems to be a pretty good chunk [...] Dr. Pleitez feels something more is needed. * Telephone Encounter - Ronaldo Pleitez MD - 05/23/2025 8:22 AM EDT Check with skilled nursing staff for additional insight on falling episodes. * Telephone Encounter - Mary Ann Pabon RN - 05/22/2025 1:23 PM EDT Patient's daughter calls and states that patient [...] Mary Ann Pabon RN documented in this encounterVan Wert County Hospital07-15-2025 Telephone encounter Note * Telephone Encounter - Samara Baker RN - 05/23/2025 9:53 AM EDT Appears per note in appt phone comments that pt is at [facility]. Confirmed address is for [facility]. Nurse number listed in those comments- called and had to leave a msg for them to call us back. Called and spoke with terminal make up operator at [facility] and she states that pt is now in one of the Independent apartments they have. Appears nursing is no longer involved in care once pt goes to the independent side. Called and spoke with daughter Liza again who confirms pt is in an independent apartment now. Ptdoes have a pull cord for emergencies that rings to the nurses for assistance but otherwise pt doesnot receive nursing care. Liza states that pt took a Metolazone sometime and first fallwas early Thursday morning (middle of the night) and second fall was early Thursday morning- again in the middle of the night. Pt told her that he doesn't really know why he fell. Pt is using his walker. The fall on Thursday, the nurses at [facility] did not respond right away so pt called 911. Paramedics called Liza and told her that he checked out okay, did not hit his head and his VS were fine.Pt did hit his left arm and had some significant bleeding from some skin tears on that arm. Lizajerrell states that pt states has no recollection of when he bit his tongue. He told Liza he doesn't think it occurred during one of his falls. Liza is surprised he has no recollection as she saidthere seems to be a pretty good chunk [...] Dr. Pleitez feels something more is needed. [facility]07-15-2025 Telephone encounter Note* Telephone Encounter - Ronaldo Pleitez MD - 05/23/2025 8:22 AM EDT Check with skilled nursing staff for additional insight on falling episodes. [facility]07-14-2025 Telephone encounter Note* Telephone Encounter - Mary Ann Pabon RN - 05/22/2025 1:23 PM EDT Patient's daughter calls and states that patient [...] review and advise, Mary Ann Pabon RN [facility]07-03-2025 NoteHNO ID: [id number] Author: ESHA JACKSON LPN Service: ? Author Type: LICENSED NURSE Type: Progress Notes Filed: 05/11/2025 10:58 Note Text: Patient here for injection of Aranesp, given SQ in right arm. Patient tolerated well. [facility] History of Present illness Narrative* Esha Jackson LPN - 05/11/2025 9:35 AM EDT Patient here for injection of Aranesp, given SQ in right arm. Patient tolerated well. Esha Jackson LPN documented in this encounterVan [facility]06-30-[facility]25 Telephone encounter Note * Telephone Encounter - Bebo Vasquez RN - 05/08/2025 6:26 PM EDT Pt called and is notified of providers message and instructions. Pt voices understanding. Bebo Vasquez RN [facility]06-30-2025 Miscellaneous Notes* Telephone Encounter - Bebo Vasquez RN - 05/08/2025 6:26 PM EDT Pt called and is notified of providers message and instructions. Pt voices understanding. Bebo Vasquez RN * Telephone Encounter - Ronaldo Pleitez MD - 05/08/2025 5:48 PM EDT The following approved medication requests have been transmitted electronically. Requested Prescriptions Signed Prescriptions Disp Refills metOLazone (ZAROXOLYN) 2.5 mg tablet 6 tablet 0 Sig: Take 1 tablet by mouth three times a week for 6 doses. Authorizing Provider: RONALDO PLEITEZ MD * Telephone Encounter - Lupis Clarke MA - 05/08/2025 10:05 AM EDT Note is regarding results from 04/14 on metOLazone (ZAROXOLYN) 2.5 mg tablet (Discontinued) 12 tablet 0 04/06/2025 04/25/2025 Sig: Take 1 tablet by mouth three times a week. Please review Lupis Clarke MA * Telephone Encounter - Mary Ann Samayoa - 05/05/2025 3:44 PM EDT Patient spoke with this PSS stating that Dr. Pleitez had prescribed a little pill to help with patient's swelling. Patient stated that he spoke w/ Dr[facility] that swelling has gone down and ok to stop medication. Patient states that the swelling back, but not to the extent of the previous state. Please advise. documented in this encounterVan [facility]ert [facility]06-[facility]-2025 Telephone encounter Note * Telephone Encounter - Ronaldo Pleitez MD - 05/08/2025 5:48 PM EDT The following approved medication requests have been transmitted electronically. Requested Prescriptions Signed Prescriptions Disp Refills metOLazone (ZAROXOLYN) 2.5 mg tablet 6 tablet 0 Sig: Take 1 tablet by mouth three times a week for 6 doses. Authorizing Provider: RONALDO PLEITEZ MD [facility]06-30-2025 Telephone encounter Note* Telephone Encounter - Lupis Clarke MA - 05/08/2025 10:05 AM EDT Note is regarding results from 04/14 on metOLazone (ZAROXOLYN) 2.5 mg tablet (Discontinued) 12 tablet 0 04/06/2025 04/25/2025 Sig: Take 1 tablet by mouth three times a week. Please review Lupis Clarke MA [facility]06-27-2025 Telephone encounter Note* Telephone Encounter - Mary Ann Samayoa - 05/05/2025 3:44 PM EDT Patient spoke with this PSS stating that Dr. Pleitez had prescribed a little pill to help with patient's swelling. Patient stated that he [facility] that [facility] has gone down and ok to stop medication. Patient states that the swelling back, but not to the extent of the previous state. Please advise. [facility]06-20-2025 NoteHNO ID: [id number] Author: ESHA JACKSON LPN Service: ? Author Type: LICENSED NURSE Type: Progress Notes Filed: 04/28/2025 11:53 Note Text: Patient here for injection of Aranesp. Given SQ in left arm. Patient tolerated well. Esha Jackson [facility]06-20-2025 History of Present illness Narrative* Esha Jackson LPN - 04/28/2025 9:49 AM EDT Patient here for injection of Aranesp. Given SQ in left arm. Patient tolerated well. Esha Jackson LPN documented in this encounterVan Wert County Hospital06-06-2025 NoteHNO ID: [id number] Author: ESHA JACKSON LPN Service: ? Author Type: LICENSED NURSE Type: Progress Notes Filed: 04/14/2025 11:58 Note Text: Aranesp injection deferred, treatment parameter not met, Hgb 10.3. Esha Jackson [facility]06-06-2025 History of Present illness Narrative* Esha Jackson LPN - 04/14/2025 10:33 AM EDT Aranesp injection deferred, treatment parameter not met, Hgb 10.3. 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; Confirmed Blk below His by His Bundle Electrogram Chronic atrial fibrillation ([facility]) 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 ([facility]) 12/01/2022 CVA (cerebral vascular accident) ([facility]) 08/22/2022 Diverticulosis H/O echocardiogram 09/16/2022 EF 68 5 %, mod concentric LVH, mod TR, mild-mod MR with mod MAC History of anemia History of CVA (cerebrovascular accident) 08/22/2022 Pontine infarction, R>L History of stress test 10/12/2024 EF 43%, mild ischemia involving the apex Hx of CABG 07/22/2021 4 vessel CABG with ORNELAS-LAD, SVG-RI, SVG-OM, and SVG-RCA in [place] Hypertension Hypothyroidism senior care current use of anticoagulant Xarelto 20 mg daily MDS (myelodysplastic syndrome) ([facility]) 03/12/2023 Mixed hyperlipidemia Myasthenia gravis ([facility]) Last seen by neurology July 29, 2017. 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 ARTHROPLASTY TOTAL SHOULDER 11/09/2008 right ARTHROSCOPY OF JOINT UNLISTED 1999 Elbow right CABG (4) VEIN GRAFTS & ARTERIAL GRAFT(S) 07/21/[address] [facility] COLONOSCOPY FLX DX W/COLLJ SPEC WHEN PFRMD [...] current medications. 2. 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- ICD9: 414.01, ICD10: I25.10 Four-vessel CABG 2020. [...] rate control and anticoagulation strategy. Heart rate controlledby virtue of AV node dysfunction. He is on Xarelto. 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 documented in this encounterVan [facility]ert [facility] Hospital05-30-2025 NoteHNO ID: [id number] Author: IRAM JOHNSON APRN.TUMOR REGISTRAR Service: ? 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; Confirmed Blk below His by His Bundle Electrogram Chronic atrial fibrillation ([facility]) 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 ([facility]) 12/01/2022 CVA (cerebral vascular accident) ([facility]) 08/22/2022 Diverticulosis H/O echocardiogram 09/16/2022 EF 68?5 %, mod concentric LVH, mod TR, mild-mod MR with mod MAC History of anemia History of CVA (cerebrovascular accident) 08/22/2022 Pontine infarction, R>L History of stress test 10/12/2024 EF 43%, mild ischemia involving the apex 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 [...] RIGHT OP SURGERY Right 12/18/[address] [facility] ARTHROPLASTY TOTAL SHOULDER 11/09/2008 right ARTHROSCOPY OF JOINT UNLISTED 2000 Elbow right CABG (4) VEIN GRAFTS AND ARTERIAL GRAFT(S) 07/21/[address] [facility] COLONOSCOPY FLX DX W/COLLJ SPEC WHEN PFRMD [...] mouth once daily. polyethylene (more content not included)...[facility]05-29-2025 Miscellaneous Notes* Telephone Encounter - Latisha Parks LPN - 04/06/2025 2:57 PM EDT Called pts daughter and all reviewed. * Telephone Encounter - Ronaldo Pleitez MD - 04/06/2025 1:18 PM EDT The following approved medication requests have been transmitted electronically. Requested Prescriptions Signed Prescriptions Disp Refills metOLazone (ZAROXOLYN) 2.5 mg tablet 12 tablet 0 Sig: Take 1 tablet by mouth three times a week. Authorizing Provider: RONALDO PLEITEZ Call for refill if effective, and tolerated. BMP in 2 weeks. Ronaldo Pleitez MD * Telephone Encounter - Jessenia Hernández LPN - 04/05/2025 2:48 PM EDT Daughter's concerned about Patient falling, he recently moved from Assisted Living to Independent Living, does not have eyes on him like before. Willing to start the medication, asking for RX to go to [facility]. Jessenia Hernández LPN * Telephone Encounter - Ronaldo Pleitez MD - 04/05/2025 1:14 PM EDT Yes to concerns #1 and #2 if we try to treat edema with metolazone. * Telephone Encounter - Mary Ann Pabon RN - 04/05/2025 8:43 AM EDT Patient daughter calls and states that she [...] cause electrolyte imbalance. Daughter is asking how likelyis this, and would patient labs have to be monitored more frequently? Please review and advise, Mary Ann Pabon RN documented in this encounterVan [facility]ert [facility] Hospital05-29-2025 Telephone encounter Note * Telephone Encounter - Latisha Parks LPN - 04/06/2025 2:57 PM EDT Called pts daughter and all reviewed. [facility]05-29-2025 Telephone encounter Note* Telephone Encounter - Ronaldo Pleitez MD - 04/06/2025 1:18 PM EDT The following approved medication requests have been transmitted electronically. Requested Prescriptions Signed Prescriptions Disp Refills metOLazone (ZAROXOLYN) 2.5 mg tablet 12 tablet 0 Sig: Take 1 tablet by mouth three times a week. Authorizing Provider: RONALDO PLEITEZ Call for refill if effective, and tolerated. BMP in 2 weeks. Ronaldo Pleitez MD [facility]05-28-2025 Telephone encounter Note* Telephone Encounter - Jessenia Hernández LPN - 04/05/2025 2:48 PM EDT Daughter's concerned about Patient falling, he recently moved from Assisted Living to Independent Living, does not have eyes on him like before. Willing to start the medication, asking for RX to go to [facility]. Jessenia Hernández LPN [facility]05-28-2025 Telephone encounter Note* Telephone Encounter - Ronaldo Pleitez MD - 04/05/2025 1:14 PM EDT Yes to concerns #1 and #2 if we try to treat edema with metolazone. [facility]05-28-2025 Telephone encounter Note* Telephone Encounter - Mary Ann Pabon RN - 04/05/2025 8:43 AM EDT Patient daughter calls and states that she [...] cause electrolyte imbalance. Daughter is asking how likelyis this, and would patient labs have to be monitored more frequently? Please review and advise, Mary Ann Pabon RN [facility]05-23-2025 NoteHNO ID: [id number] Author: ESHA JACKSON LPN Service: ? Author Type: LICENSED NURSE Type: Progress Notes Filed: 03/31/2025 12:01 Note Text: Patient here for injection of Aranesp. Given SQ in right arm. Patient tolerated well. Esha Jackson [facility]05-23-2025 Note [facility]05-20-2025 NoteUniversity [facility]als [facility]05-19-2025 NoteUniversity [facility]als [facility]05-19-2025 History of Present illness Narrative* Ronaldo Pleitez MD - 03/27/2025 3:10 PM EDT This note was created using UXFLIPriter. Subjective Patient presents with: Right leg Recording using Urgent[employer] software for draft documentation of the visit was discussed with the patient/authorized publications sales representative; all questions welcomed and answered. Patient/authorized publications sales representative agreed to proceed Narinder is [...] and foot, which contrasts with the normal c oloration of the left foot. Narinder also notes occasional restlessness in the right leg, necessitating movement, but denies any associated pain, pruritus, burning, fever, or dyspnea. The left leg remainsunaffected. Narinder has been on Xarelto for several years and is also taking furosemide at lower doses that previously recommended due to urinary urgency issues in the past.. He wears compression stockings daily andreports no recent changes in medication, EXCEPT initiation [...] Remission (Hcc) Cva (Cerebral Vascular Accident) (Hcc) Mcc Current Use of Anticoagulant Lymphedema of Both Lower Extremities Osteoarthritis, Generalized History of Anemia Benign Hypertension Diverticulosis Nocturnal Hypoxemia Rbbb Restless Leg Syndrome Mds (Myelodysplastic Syndrome) ([facility]) Myasthenia Gravis ([facility]) Vertebral Artery Occlusion, Left Venous Stasis of Both Lower Extremities 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[facility]) Status Post Ligation of Left Atrial Appendage Pvc's (Premature Ventricular Contractions) History of Stress Test H/O Echocardiogram 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 Ronaldo Pleitez MD documented in this encounterVan Wert County Hospital05-09-2025 NoteHNO ID: [id number] Author: ESHA JACKSON LPN Service: ? Author Type: LICENSED NURSE Type: Progress Notes Filed: 03/17/2025 15:48 Note Text: Patient here for injection of Aranesp. Given SQ in left arm. Patient tolerated well. [facility] History of Present illness Narrative* Esha Jackson LPN - 03/17/2025 2:11 PM EDT Patient here for injection of Aranesp. Given SQ in left arm. Patient tolerated well. Esha Jackson LPN documented in this encounterVan Wert County Hospital05-09-2025 Telephone encounter Note * Telephone Encounter - Baljinder Galloway DO - 03/17/2025 1:17 PM EDT He will continue Aranesp indefinitely. Baljinder Galloway DO [facility]05-09-2025 Miscellaneous Notes* Telephone Encounter - Baljinder Galloway DO - 03/17/2025 1:17 PM EDT He will continue Aranesp indefinitely. Baljinder Galloway DO * Telephone Encounter - [facility] Jay - 03/17/2025 12:[address] Galloway, Trying to make room on 7/3 injection schedule. Patient's last order is 04/28. Is this correct, or will this injection continue on past that date? Thank you. documented in this encounterVan Wert County Hospital05-09-2025 Telephone encounter Note * Telephone Encounter - [facility] Jay - 03/17/2025 12:[address] Galloway, Trying to make room on 7/3 injection schedule. Patient's last order is 04/28. Is this correct, or will this injection continue on past that date? Thank you. [facility] Work Phone: [phone] NoteUniversity Hospitals [facility]04-11-2025 NoteHNO ID: [id number] Author: ESHA JACKSON LPN Service: ? Author Type: LICENSED NURSE Type: Progress Notes Filed: 02/17/2025 10:06 Note Text: Patient here for injection of Aranesp. Given SQ in LEFT arm. Pt tolerated well. Esha [facility]04-11-2025 History of Present illness Narrative* Esha Jackson LPN - 02/17/2025 9:53 AM EDT Patient here for injection of Aranesp. Given SQ in LEFT arm. Pt tolerated well. Esha Jackson LPN documented in this encounterVan Wert County Hospital03-28-2025 NoteHNO ID: [id number] Author: ESHA JACKSON LPN Service: ? Author Type: LICENSED NURSE Type: Progress Notes Filed: 02/03/2025 14:27 Note Text: Patient here for injection of Aranesp. Given SQ in right arm. Patient tolerated well. Esha [facility]03-28-2025 History of Present illness Narrative* Esha Jackson LPN - 02/03/2025 10:31 AM EDT Patient here for injection of Aranesp. Given SQ in right arm. Patient tolerated well. Esha Jackson LPN documented in this encounterVan Wert County Hospital03-25-2025 Instructions* Patient Instructions* Arabella Moreno, MARTIN.TUMOR REGISTRAR - 01/31/2025 11:38 AM EDT HOME INSTRUCTIONS FOR MANAGEMENT OF CONSTIPATION NON-MEDICATION MEASURES: 1. Increase your intake of fluids daily. Try to include 8 - 8 ounce glasses per day. Sip on fluids throughout the day. 2. Add more fiber to your diet. The recommended daily amount of fiber is 20 to 35 grams. If you areincreasing your fiber intake do so slowly to [...] adjust how much you need over time dependingon your stools. For example, decrease dose to [...] review all the medicines you take, even [id number] medicines. As you get older, the way medicines work in your body can change. Some medicines, or combinations of medicines, can make you sleepy or dizzy andcan cause you to fall. 3. Have your [...] have certain medical conditions. documented in this encounterVan Wert County Hospital03-25-2025 NoteUniversity Hospitals Lake [facility]03-25-2025 History of Present illness Narrative* Arabella Moreno APRN.CNP - 01/31/2025 11:10 AM EDT Images from the original note [...] as PCP - General (Internal Medicine) Arabella Moreno APRN.CNP as Soft Mud Molder (Internal Medicine) Baljinder Galloway DO (Hematology). Conrad De La RosaM (Podiatry) [facility] [place] Miranda MD. Laron Arreola (Orthopedics) [place] [...] Level: 4 - Moderate documented in this encounterVan Wert County Hospital03-14-2025 NoteUniversity Hospitals Lake [facility] Center03-14-2025 History of Present illness Narrative* Shanice Green LPN - 01/20/2025 10:36 AM EDT Patient presents with: Imm/Inj Pt is identified [...] noted. Shanice Green LPN documented in this encounterVan Wert County Hospital02-28-2025 NoteUniversity Hospitals Lake [facility]02-28-2025 History of Present illness Narrative* Esha Jackson LPN - 01/06/2025 12:29 PM EST Patient here for injection of Retacrit. Given SQ in right arm. Patient tolerated well.For all otherinformation regarding today, see today's OV note with Dr Galloway. Esha Jackson LPN documented in this encounterVan Wert County Hospital02-28-2025 NoteUniversity Hospitals Lake [facility]02-28-2025 History of Present illness Narrative* Baljinder Galloway DO - 01/06/2025 11:26 AM EST Diagnosis: 1) CMML. HPI: The patient is an 89-year-old male with a past medical history significant for coronary arterydisease (four-vessel CABG), stroke, paroxysmal atrial fibrillation, hypertension, [...] (with VAFs): SF3B1 p.[id number] (41.7%) and TET2 p.[id number]*6 (46%). The overall findings are consistent with a 2021 [facility] and 5th edition WHO diagnosis of chronic [...] as an outlier. Normal cytogenetics. Moved from [place] to assisted living at [facility]. Established care here. Drives. Current therapy: 1) Azacitidine. Cycle 10/14/2023. Most recent cycle 05/2023. He was also diagnosed with acute DVT of the internal jugular vein on the right. This occurred despite anticoagulation with rivaroxaban. Port was removed. He was admitted to [facility] 05/15 through 05/18 for gram-negative bacteremia attributed to right lower extremity cellulitis. He was initially treated with IV broad-spectrum antibioticsincluding Zosyn and discharged on Levaquin. 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; Confirmed Blk below His by His Bundle Electrogram Chronic atrial fibrillation ([facility]) Chronic heart failure with preserved ejection fraction ([facility]) 07/29/2024 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 ([facility]) 12/01/2022 CVA (cerebral vascular accident) ([facility]) 08/22/2022 Diverticulosis H/O echocardiogram 09/16/2022 EF 68 5 %, mod concentric LVH, mod TR, mild-mod MR with mod MAC History of anemia History of stress test 10/12/2024 EF 43%, mild ischemia involving the apex 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 ARTHROPLASTY TOTAL SHOULDER 11/09/2008 right ARTHROSCOPY OF JOINT UNLISTED 1999 Elbow right CABG (4) VEIN GRAFTS & ARTERIAL GRAFT(S) 07/21/[address] [facility] COLONOSCOPY FLX DX W/COLLJ SPEC WHEN PFRMD [...] chronic myelomonocytic leukemia treated with erythropoietin (HCC) (FORMERLY [facility]) Assessment: -CMML-MDS subtype; CMML-1. -CPSS-Mol Low risk. [...] and only a few immature granulocytes. No indica tion of PD and no repeat bone marrow biopsy indicated. -There is well-controlled. Plan: -Continue every 2 week Aranesp if Hgb < 10.0 g/dL. -Okay for Aranesp injection today. -Okay to continue ASA and rivaroxaban. -OV/CBC/CMP/iron studies/erythropoietin/B12/MMA/serum folate in about 3 months. Portions of this documentation were copied and pasted from my previous office visit note dated 10/31/2024 in order to provide a cohesive continuity of the history. The note has been reviewed and edited and updated as necessary. Baljinder Galloway DO documented in this encounterVan Wert County Hospital02-21-2025 NoteHNO ID: [id number] Author: ISRAEL MINOR MD Service: ? Author Type: Physician Type: Progress Notes Filed: 01/08/2025 22:00 Note Text: Dual Pacer Remote Check Date: December 30, 2024 Time: 2:51 PM Devices: Implants Ra Lead Biotronik-09/17/2022 - Implanted Heart Model/Cat number: ADAIR S [id number] Serial number: [id number] Anodic Operator: Th[employer]myapps Lot number: LEFT AXILLARY VEIN Size: Right Atrial Pacing Lead Rv Lead Biotronik-09/17/2022 - Implanted Heart Model/Cat number: ADAIR S 60 [id number] Serial number: [id number] Anodic Operator: [employer] Lot number: LEFT CEPHALIC VEIN Size: Right Ventricular Pacing Lead Pacemaker Dual Pacer Biotronik-09/17/2022 - Implanted (Left) Chest Wall Model/Cat number: GUY [id number] -Alexis [id number] Serial number: [id number] Anodic Operator: ThumbRONIK [employer] Lot number: INITIAL DUAL PACER IMPLANT. Size: [...] and provider appointment. View External Cardiology - Car Retarder Operator Strips [ID [id number]][facility] 12-30-2024 History of Present illness Narrative* Israel Minor MD - 12/30/2024 2:51 PM EST Dual Pacer Remote Check Date: December 30, 2024 Time: 2:51 PM Devices: Implants Ra Lead Biotronik-09/17/2022 - Implanted Heart Model/Cat number: ADAIR Pena [id number] Serial number: [id number] Anodic Operator: [employer] Lot number: LEFT AXILLARY VEIN Size: Right Atrial Pacing Lead Rv Lead Biotronik-09/17/2022 - Implanted Heart Model/Cat number: ADAIR Pena 60 [id number] Serial number: [id number] Anodic Operator: [employer] Lot number: LEFT CEPHALIC VEIN Size: Right Ventricular Pacing Lead Pacemaker Dual Pacer Biotronik-09/17/2022 - Implanted (Left) Chest Wall Model/Cat number: GUY [id number] Serial number: [id number] Anodic Operator: [employer] Lot number: INITIAL DUAL PACER IMPLANT. Size: [...] and provider appointment. View External Cardiology - Car Retarder Operator Strips [ID [id number]] documented in this encounterVan Wert County Hospital02-14-2025 Telephone encounter Note * Telephone Encounter - Latisha Parks LPN - 12/23/2024 10:42 AM EST Fax rec'd from [place] [employer] for refills to [facility]adiel rx. Pt last saw pcp 07/29/24. Next appt with [facility] 01/31/25. [facility]02-14-2025 Miscellaneous Notes* Telephone Encounter - Latisha Parks LPN - 12/23/2024 10:42 AM EST Fax rec'd from [place] [employer] for refills to yadiel rx. Pt last saw pcp 07/29/24. Next appt with [facility] 01/31/25. documented in this encounterVan Wert County Hospital02-14-2025 [facility]: [id number] Author: ESHA JACKSON LPN Service: ? Author Type: LICENSED NURSE Type: Progress Notes Filed: 12/23/2024 10:17 Note Text: Patient here for injection of Aranesp. Given SQ in left arm. Patient tolerated well. Esha Jackson [facility]02-14-2025 History of Present illness Narrative* Esha Jackson LPN - 12/23/2024 10:02 AM EST Patient here for injection of Aranesp. Given SQ in left arm. Patient tolerated well. Esha Jackson LPN documented in this encounterVan Wert County Hospital01-31-2025 [facility]01-31-2025 History of Present illness Narrative* Shanice Green LPN - 12/09/2024 11:32 AM EST Patient presents with: Imm/Inj Pt is identified [...] noted. Shanice Green LPN documented in this encounterVan Wert County Hospital01-16-2025 [facility]01-16-2025 History of Present illness Narrative* Esha Jackson LPN - 11/24/2024 2:14 PM EST Patient here for injection of Aranesp. Given SQ in right arm. Patient tolerated well. Patient observed for 15 minutes for signs or symptoms of adverse reaction, none noted. Esha Jackson LPN documented in this encounterVan Wert County Hospital01-10-2025 Telephone encounter Note * Telephone Encounter - Sinai Jay - 11/18/2024 12:58 PM EST Scheduled with patient Start email sent [facility] Work Phone: 1(129) 803-993701-10-2025 Miscellaneous Notes* Telephone Encounter - Sinai Jay - 11/18/2024 12:58 PM EST Scheduled with patient Start email sent * Telephone Encounter - Shanice Green LPN - 11/16/2024 5:00 PM EST Injection- Araluis eduardop Spoke with pt. , given information concerning labs ,pt. Voiced understanding. PSS Please schedule for CBC/possible injection every other week. Pt. Would like to start sometime next week. Shanice Green LPN * Telephone Encounter - Baljinder Galloway DO - 11/16/2024 4:48 PM EST Can let him know that his blood counts do not demonstrate need for transfusion but he would benefitby starting Aranesp injections as we discussed at most recent office visit. Please schedule for CBC/possible injection every other week. Baljinder Galloway DO documented in this encounterVan Wert County Hospital01-08-2025 Telephone encounter Note * Telephone Encounter - Shanice Green LPN - 11/16/2024 5:00 PM EST Injection- Aranesp Spoke with pt. , given information concerning labs ,pt. Voiced understanding. PSS Please schedule for CBC/possible injection every other week. Pt. Would like to start sometime next week. Shanice Jean XAVIER Green [facility]01-08-2025 Telephone encounter Note* Telephone Encounter - Baljinder Galloway DO - 11/16/2024 4:48 PM EST Can let him know that his blood counts do not demonstrate need for transfusion but he would benefitby starting Aranesp injections as we discussed at most recent office visit. Please schedule for CBC/possible injection every other week. Baljinder Galloway DO [facility]12-06-2024 Telephone encounter Note* Telephone Encounter - Skye Foster LPN - 10/14/2024 2:39 PM EST Phoned dental office and notified Yaritza. She stated that she will call patient and notify him of instructions. Skye Foster LPN [facility]12-06-2024 Miscellaneous Notes* Telephone Encounter - Skye Foster LPN - 10/14/2024 2:39 PM EST Phoned dental office and notified Yaritza. She stated that she will call patient and notify him of instructions. Skye Foster LPN * Telephone Encounter - Arabella Moreno APRN.TUMOR REGISTRAR - 10/14/2024 2:04 PM EST He will need to stop the Xarelto two days prior to the dental extractions and hold for two days after. He can then resume at usual dose. If he is still experiencing bleeding two days after the procedure he should contact this office prior to resuming Xarelto Arabella Moreno APRN.MAURICIO * Telephone Encounter - Robyn Hollis RN - 10/14/2024 1:04 PM EST Hernán Bowers- dental surgeon office- reports patient is schedule on Thursday to have all of hislower teeth extracted. Dental staff just found out today patient is taking a blood thinner. Per med list patient taking xarelto 20 mg and asa 81 mg. Kiya asking if these need to be held for tooth extractions? Please phone Kiya with reply: [phone] documented in this encounterVan Wert County Hospital12-06-2024 Telephone encounter Note * Telephone Encounter - Arabella Moreno APRN.MAURICIO - 10/14/2024 2:04 PM EST He will need to stop the Xarelto two days prior to the dental extractions and hold for two days after. He can then resume at usual dose. If he is still experiencing bleeding two days after the procedure he should contact this office prior to resuming Xarelto Arabella Moreno APRN.MAURICIO [facility]12-06-2024 Telephone encounter Note* Telephone Encounter - Robyn Hollis RN - 10/14/2024 1:04 PM EST Hernán Bowers- dental surgeon office- reports patient is schedule on Thursday to have all of hislower teeth extracted. Dental staff just found out today patient is taking a blood thinner. Per med list patient taking xarelto 20 mg and asa 81 mg. Kiya asking if these need to be held for tooth extractions? Please phone Kiya with reply: [phone] [facility]12-05-2024 Telephone encounter Note* Telephone Encounter - Shilpa Abraham MA - 10/13/2024 9:59 AM EST Patient was notified of the Providers message in chart and stated that he does not feel any different. He said he will wait until he feels his health declines before he has any testing done. [facility]12-05-2024 Miscellaneous Notes* Telephone Encounter - Shilpa Abraham MA - 10/13/2024 9:59 AM EST Patient was notified of the Providers message in chart and stated that he does not feel any different. He said he will wait until he feels his health declines before he has any testing done. * Telephone Encounter - Iram Johnson APRN.CNP - 10/13/2024 8:15 AM EST Let the patient know, stress test was [...] we can schedule it. documented in this encounterVan Wert County Hospital12-05-2024 Telephone encounter Note * Telephone Encounter - Iram Johnson APRN.CNP - 10/13/2024 8:15 AM EST Let the patient know, stress test was [...] see me so we can schedule it. [facility]12-03-2024 NoteUniversity [facility]12-[facility] History of Present illness Narrative* Baljinder Galloway DO - 10/11/2024 10:29 AM EST Diagnosis: 1) CMML. HPI: The patient is an 88-year-old male with a past medical history significant for coronary arterydisease (four-vessel CABG), stroke, paroxysmal atrial fibrillation, hypertension, [...] (with VAFs): SF3B1 p.H662Q (41.7%) and TET2 p.[id number]*6 (46%). The overall findings are consistent with [...] as an outlier. Normal cytogenetics. Moved from [place] to assisted living at [facility]. Established care here. Drives. Current therapy: 1) Azacitidine. Cycle 10/14/2023. Most recent cycle 05/2023. He was also diagnosed with acute DVT of the internal jugular vein on the right. This occurred despite anticoagulation with rivaroxaban. Port was removed. He was admitted to [facility] 05/15 through 05/18 for gram-negative bacteremia attributed to right lower extremity cellulitis. He was initially treated with IV broad-spectrum antibioticsincluding Zosyn and discharged on Levaquin. Blood cultures cleared prior to discharge. Presents for ongoing oncologic management. Interim history: No complaints today. He uses a cane when walking around the skilled nursing. He is not having shortness of breath while doing that and he does not feel that his energy level issignificantly compromised. No acute illnesses since last seen. His appetite is fair. He eats smaller portions throughout the day. Constipation that comes and goes. No unusual or nuisance bleeding. No unexplained bruising. 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; Confirmed Blk below His by His Bundle Electrogram Chronic atrial fibrillation ([facility]) Chronic heart failure with preserved ejection fraction ([facility]) 07/29/2024 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 ([facility]) 12/01/2022 CVA (cerebral vascular accident) ([facility]) 08/22/2022 Diverticulosis History of anemia 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 [...] RIGHT OP SURGERY Right 12/18/[address] [facility] ARTHROPLASTY TOTAL SHOULDER 11/09/2008 right ARTHROSCOPY OF JOINT UNLISTED 1999 Elbow right CABG (4) VEIN GRAFTS & ARTERIAL GRAFT(S) 07/21/[address] [facility] COLONOSCOPY FLX DX W/COLLJ SPEC WHEN PFRMD [...] (98.5 F), weight 79.4 kg (175 lb), VxP829%. Well-appearing and in no acute distress. EYES: [...] -Okay to continue ASA and rivaroxaban. -OV/CBC/CMP/iron studies/erythropoietin/B12/MMA/serum folate in about 3 months. Portions of this documentation were copied and pasted from my previous office visit note dated 06/16/2024 in order to provide a cohesive continuity of the history. The note has been reviewed and editedand updated as necessary. Baljinder Galloway DO documented in this encounterVan Wert County Hospital12-03-2024 Nurse Note* Shanice Green LPN - 10/11/2024 10:12 AM EST Est. Pt. 1 month F/U discuss recent lab results. Shanice Green LPN [facility]12-03-2024 Nurse Note* Shanice Green LPN - 10/11/2024 10:12 AM EST Est. Pt. 1 month F/U discuss recent lab results. Shanice Green LPN documented in this encounterVan Wert County Hospital12-02-2024 Telephone encounter Note * Telephone Encounter - Latisha Parks LPN - 10/10/2024 4:47 PM EST Pt's daughter notified. [facility]12-02-2024 Miscellaneous Notes* Telephone Encounter - Latisha Parks LPN - 10/10/2024 4:47 PM EST Pt's daughter notified. * Telephone Encounter - Ronaldo Pleitez MD - 10/10/2024 4:43 PM EST Patient's request for medication is as follows Requested Prescriptions Signed Prescriptions Disp Refills rivaroxaban (XARELTO) 20 mg tablet 14 tablet 0 Sig: Take 1 tablet by mouth daily with dinner for 14 days. Authorizing Provider: RONALDO PLEITEZ Order entered - please phone pharmacy and notify patient. Ronaldo Pleitez MD * Telephone Encounter - Sandi Rogers - 10/10/2024 4:22 PM EST Patient called due to he is out [...] send today. Please call patient once submitted. * Telephone Encounter - Michael DesouzaleslieRuth - 10/10/2024 11:00 AM EST Please advise patient when provider sends this urgent RX [phone] * Telephone Encounter - Tara Trujillo MA - 10/10/2024 9:39 AM EST 2 week supply pended to be sent to [facility]. Tara Trujillo MA * Telephone Encounter - Natalie Bernardo - 10/10/2024 8:12 AM EST Patient's daughter is calling Ronaldo Pleitez MD today to request short term medication requestfor rivaroxaban (XARELTO) 20 mg tablet. Daughter states that medication is to be sent mail order, but the medication will not get there on time. DaughterLiza is asking to have the prescription sent to [facility]/[place]. Patient has been identified by name and birthdate. Duration of symptoms: N/A If any issues please return call to Liza [phone] Was an appointment scheduled: No Closing statement: Results or non-symptom based questions: Thank you for calling [facility], your call will be returned within the next business day. Natalie Bernardo documented in this encounterVan Wert County Hospital12-02-2024 Telephone encounter Note * Telephone Encounter - Ronaldo Pleitez MD - 10/10/2024 4:43 PM EST Patient's request for medication is as follows Requested Prescriptions Signed Prescriptions Disp Refills rivaroxaban (XARELTO) 20 mg tablet 14 tablet 0 Sig: Take 1 tablet by mouth daily with dinner for 14 days. Authorizing Provider: RONALDO PLEITEZ Order entered - please phone pharmacy and notify patient. Ronaldo Pleitez MD [facility]12-02-2024 Telephone encounter Note* Telephone Encounter - Sandi Rogers - 10/10/2024 4:22 PM EST Patient called due to he is out [...] send today. Please call patient once submitted. [facility]12-02-2024 Telephone encounter Note* Telephone Encounter - Ruth Vasquez - 10/10/2024 11:00 AM EST Please advise patient when provider sends this urgent RX [phone] [facility]12-02-2024 Telephone encounter Note* Telephone Encounter - Tara Trujillo MA - 10/10/2024 9:39 AM EST 2 week supply pended to be sent to [facility]. Tara Trujillo MA [facility]12-02-2024 Telephone encounter Note* Telephone Encounter - Natalie Bernardo - 10/10/2024 8:12 AM EST Patient's daughter is calling Ronaldo Pleitez MD today to request short term medication requestfor rivaroxaban (XARELTO) 20 mg tablet. Daughter states that medication is to be sent mail order, but the medication will not get there on time. DaughterLiza is asking to have the prescription sent to [facility]. Patient has been identified by name and birthdate. Duration of symptoms: N/A If any issues please return call to Liza [phone] Was an appointment scheduled: No Closing statement: Results or non-symptom based questions: Thank you for calling [facility], your call will be returned within the next business day. Natalie Bernardo [facility]11-25-2024 NoteUniversity Hospitals Lake [facility]11-25-2024 History of Present illness Narrative* Ginna Em RN - 10/03/2024 8:54 AM EST CDM Telephonic Outreach Provider Action/FYI CHF Assisted living staff assist with meals, medications, wts, and BPs Spoke with the patient who reports that he is feeling well and has no needs at this time. Appointments for Next 60 Days Date Time Provider Location Dept Phone 10/11/2024 10:00 AM [facility] HUSSEIN [place] [phone] 10/11/2024 10:30 AM BALJINDER GALLOWAY [phone] Contacted for: Routine Telephonic Outreach Contact made [...] pounds in a week? 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 Routed to: No Action Needed MARCELO Education Provided this Outreach: No Ginna Em RN October 03, 2024 10:57 AM documented in this encounterVan Wert County Hospital11-22-2024 Telephone encounter Note * Telephone Encounter - Shilpa Abraham MA - 09/30/2024 8:58 AM EST Spoke with Zaria at [facility]. Patients Stress Test is scheduled for 6:45 am at [facility] on 10/12/24. Left message to call back for instructions. Order was faxed ([phone]) to [facility]. [facility]11-22-2024 Miscellaneous Notes* Telephone Encounter - Shilpa Abraham MA - 09/30/2024 8:58 AM EST Spoke with Zaria at [facility]. Patients Stress Test is scheduled for 6:45 am at [facility] on 10/12/24. Left message to call back for instructions. Order was faxed ([phone]) to [facility]. * Telephone Encounter - Iram Johnson APRN.CNP - 09/30/2024 8:23 AM EST Apparently the patient does not need a peer to peer, the reference number is the approval number for the stress test. It is good from 09-27-2024-12/25/2024. * Telephone Encounter - Shilpa Abraham MA - 09/27/2024 3:59 PM EST Ref #[id number] Patient needs a Peer to Peer for his Stress Test. The number is [phone]. documented in this encounterVan Wert County Hospital11-22-2024 Telephone encounter Note * Telephone Encounter - Iram Johnson APRN.CNP - 09/30/2024 8:23 AM EST Apparently the patient does not need a peer to peer, the reference number is the approval number for the stress test. It is good from 09-27-2024-12/25/2024. [facility]11-19-2024 Telephone encounter Note* Telephone Encounter - Shilpa Abraham MA - 09/27/2024 3:59 PM EST Ref #[id number] Patient needs a Peer to Peer for his Stress Test. The number is [phone]. 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; Confirmed Blk below His by His Bundle Electrogram Chronic atrial fibrillation ([facility]) Chronic heart failure with preserved ejection fraction ([facility]) 07/29/2024 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 ARTHROPLASTY TOTAL SHOULDER 11/09/2008 right ARTHROSCOPY OF JOINT UNLISTED 1999 [place] right CABG (4) VEIN GRAFTS & ARTERIAL GRAFT(S) 07/21/[address] [facility] COLONOSCOPY FLX DX W/COLLJ SPEC WHEN PFRMD [...] apnea, cough, chest tightness, wheezingand stridor. Cardiovascular: Negative for chest pain, palpitations [...] current medications. 2. 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- ICD9: 414.01, ICD10: I25.10 Four-vessel CABG in 2020. Patient is on chronic medication. He is not complaining of chest pain. Wewill have the patient get a nuclear stress [...] dual-chamber pacemaker. Set VVI second to chronic A- fib. Stable. 6. Chronic atrial fibrillation (HCC) - ICD9: 427.31, ICD10: I48.20 Chronic, asymptomatic atrial fibrillation. Heart rate control and anticoagulation strategy. Heart rate controlled by virtue of AV node dysfunction. Patient on Xarelto. 7. senior care current use of anticoagulant - ICD9: V58.61, ICD10: Z79.01 Patient is on Xarelto 20 mg daily. The pt is not complaining of any signs and symptoms of bleeding.The patient was instructed to call with any problems. documented in this encounterVan Wert County Hospital11-19-2024 NoteHNO ID: [id number] Author: IRAM JOHNSON APRN.TUMOR REGISTRAR Service: ? 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; Confirmed Blk below His by His Bundle Electrogram Chronic atrial fibrillation ([facility]) Chronic heart failure with preserved ejection fraction ([facility]) 07/29/2024 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 ARTHROPLASTY TOTAL SHOULDER 11/09/2008 right ARTHROSCOPY OF JOINT UNLISTED 1999 Elbow right CABG (4) VEIN GRAFTS AND ARTERIAL GRAFT(S) 07/21/[address] [facility] COLONOSCOPY FLX DX W/COLLJ SPEC WHEN PFRMD [...] daily. No current facility-ad (more content not included)...[facility] 09-27-2024 NoteHNO ID: [id number] Author: ISRAEL MINOR MD Service: ? Author Type: Physician Type: Progress Notes Filed: 10/06/2024 17:16 Note Text: Dual Pacer Report In Office Check Date: September 27, 2024 Time: 10:32 AM Devices: Implants Lead Ra Lead CrowdStrikeroniSqoot-09/17/2022 - Implanted Heart Model/Cat number: ADAIR S [id number] Serial number: [id number] Anodic Operator: One[employer] Virtual Lot number: LEFT AXILLARY VEIN Size: Right Atrial Pacing Lead Rv Lead Biotronik-09/17/2022 - Implanted Heart Model/Cat number: ADAIR S [id number] Serial number: [id number] Anodic Operator: ThumbRONIAllmyapps Lot number: LEFT CEPHALIC VEIN Size: Right Ventricular Pacing Lead Pacemaker Dual Pacer Biotronik-09/17/2022 - Implanted (Left) Chest Wall Model/Cat number: GUY [id number] Serial number: [id number] Anodic Operator: BIOTRONIK Pro[employer]ivity [employer] Lot number: INITIAL DUAL PACER IMPLANT. Size: [...] and provider appointment. View External Cardiology - Car Retarder Operator Strips [ID [id number]][facility] 09-27-2024 History of Present illness Narrative* Israel Minor MD - 09/27/2024 10:31 AM EST Dual Pacer Report In Office Check Date: September 27, 2024 Time: 10:32 AM Devices: Implants Lead Ra Lead Biotronik-09/17/2022 - Implanted Heart Model/Cat number: ADAIR Pena [id number] Serial number: [id number] Anodic Operator: ThumbRONIAllmyapps Lot number: LEFT AXILLARY VEIN Size: Right Atrial Pacing Lead Rv Lead Biotronik-09/17/2022 - Implanted Heart Model/Cat number: ADAIR Pena [id number] Serial number: [id number] Anodic Operator: ThumbRONIK [employer] Lot number: LEFT CEPHALIC VEIN Size: Right Ventricular Pacing Lead Pacemaker Dual Pacer Biotronik-09/17/2022 - Implanted (Left) Chest Wall Model/Cat number: EDORA [id number] Serial number: [id number] Anodic Operator: ThumbRONIAllmyapps Lot number: INITIAL DUAL PACER IMPLANT. Size: [...] and provider appointment. View External Cardiology - Car Retarder Operator Strips [ID [id number]] documented in this encounterVan [facility]11-07-2024 Telephone encounter Note * Telephone Encounter - Mary Ann Samayoa - 09/15/2024 4:12 PM EST Scheduled as directed. Mary Ann Samayoa [facility]11-07-2024 Miscellaneous Notes* Telephone Encounter - Mary Ann Samayoa - 09/15/2024 4:12 PM EST Scheduled as directed. Mary Ann Samayoa * Telephone Encounter - Shanice Green LPN - 09/15/2024 2:59 PM EST Spoke with pt. Informed he needed to come in next week for CBC poss tx. PSS please put on lab schedule for CBC poss tx 09/22@ 10 am. Shanice Green LPN * Telephone Encounter - Baljinder Galloway DO - 09/15/2024 2:50 PM EST Recheck CBC possible transfusion 1 week. documented in this encounterVan [facility]ert [facility] Hospital11-07-2024 Telephone encounter Note * Telephone Encounter - Shanice Green LPN - 09/15/2024 2:59 PM EST Spoke with pt. Informed he needed to come in next week for CBC poss tx. PSS please put on lab schedule for CBC poss tx 09/22@ 10 am. Shanice Green LPN [facility]11-07-2024 Telephone encounter Note* Telephone Encounter - Baljinder Galolway DO - 09/15/2024 2:50 PM EST Recheck CBC possible transfusion 1 week. [facility]11-07-2024 NoteUniversity [facility]als [facility]11-07-2024 History of Present illness Narrative* Lauri Cook - 09/15/2024 11:35 AM EST Diagnosis: 1) CMML. HPI: The patient is an 88-year-old male with a past medical history significant for coronary arterydisease (four-vessel CABG), stroke, paroxysmal atrial fibrillation, hypertension, [...] (with VAFs): SF3B1 p.H662Q (41.7%) and TET2 p.[id number]*6 (46%). The overall findings are consistent with [...] as an outlier. Normal cytogenetics. Moved from [place] to [facility] living at [facility]. Established care here. Drives. Current therapy: 1) Azacitidine. Cycle 10/14/2023. Most recent cycle 05/2023. He was also diagnosed with acute DVT of the internal jugular vein on the right. This occurred despite anticoagulation with rivaroxaban. Port was removed. He was admitted to [facility] 05/15 through 05/18 for gram-negative bacteremia attributed to right lower extremity cellulitis. He was initially treated with IV broad-spectrum antibioticsincluding Zosyn and discharged on Levaquin. 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; Confirmed Blk below His by His Bundle Electrogram Chronic atrial fibrillation ([facility]) Chronic heart failure with preserved ejection fraction ([facility]) 07/29/2024 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 Vitamin D deficiency 07/11/2020 PAST SURGICAL HISTORY Procedure Laterality Date ANKLE RIGHT OP SURGERY Right 12/18/2020 Dr Elba Sherman [facility] ARTHROPLASTY TOTAL SHOULDER 11/09/2008 right ARTHROSCOPY OF JOINT UNLISTED 2000 Elbow right CABG (4) VEIN GRAFTS & ARTERIAL GRAFT(S) 07/21/[address] [facility] COLONOSCOPY FLX DX W/COLLJ SPEC WHEN PFRMD [...] up on iron from today. Lauri Cook APRN.TUMOR REGISTRAR I spent a total of 30 minutes on the date of the service which included preparing to see the patient, kyde-hb-yiaz patient care, completing clinical documentation, performing a [...] evaluation of this patient. documented in this encounterVan Wert [facility] Hospital10-22-2024 NoteUniversity Hospitals Lake West Medical Center10-22-2024 History of Present illness Narrative* Ginna Em, RN - 08/30/2024 1:54 PM EDT CDM Telephonic Outreach Provider Vinnie/GILBERTO CHF Assisted living staff assist with meals, medications, wts, and BPs Spoke with the patient who is feeling well and has no needs at this time. Reviewed upcoming appts, and I will make my next call after cardiology appointment. Appointments for Next 60 Days Date Time Provider Location Dept Phone 09/15/2024 11:15 AM LAB [facility] HUSSEIN Cardona [phone] 09/15/2024 11:30 AM BALJINDER GALLOWAY Jon[place] [phone] 09/27/2024 10:30 AM [facility] [address] J [phone] 09/27/2024 11:00 AM IRAM JOHNSON [facility] J [phone] Contacted for: Routine Telephonic Outreach Contact made [...] pounds in a week? 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 Routed to: No Action Needed MARCELO Education Provided this Outreach: No Ginna Em RN August 30, 2024 2:00 PM documented in this encounterVan [facility]ert [facility] Hospital10-17-2024 Telephone encounter Note * Telephone Encounter - Bebo Vasquez RN - 08/25/2024 12:11 PM EDT Alexandra with [facility] Pt called and is notified of providers message and instructions. She voices understanding. Bebo Vasquez RN [facility]10-17-2024 Miscellaneous Notes* Telephone Encounter - Bebo Vasquez RN - 08/25/2024 12:11 PM EDT Alexandra with [facility] Pt called and is notified of providers message and instructions. She voices understanding. Bebo Vasquez RN * Telephone Encounter - Ronaldo Pleitez MD - 08/25/2024 11:56 AM EDT Warm soaks right upper eye lid 15 minutes 4 times a day x 5 days. * Telephone Encounter - Jluieta Reed RN - 08/24/2024 11:13 AM EDT Carina with [facility] calls to report last evening patient was noted to have some swelling and rednessto upper right eye lid approximately 0.3 cm in diameter. Continues today. She reports no drainage, itch, pain, or redness to the sclera, or fever. She says it appears to be a stye. Asking if provider wants anything done. Requests call back at [phone]. Julieta Reed RN documented in this encounterVan Wert [facility] Hospital10-17-2024 Telephone encounter Note * Telephone Encounter - Ronaldo Pleitez MD - 08/25/2024 11:56 AM EDT Warm soaks right upper eye lid 15 minutes 4 times a day x 5 days. [facility]10-16-[facility] Telephone encounter Note* Telephone Encounter - Julieta Reed RN - 08/24/2024 11:13 AM EDT Carina with [facility] calls to report last evening patient was noted to have some swelling and rednessto upper right eye lid approximately 0.3 cm in diameter. Continues today. She reports no drainage, itch, pain, or redness to the sclera, or fever. She says it appears to be a stye. Asking if provider wants anything done. Requests call back at [phone]. Julieta Reed RN [facility]09-24-2024 NoteUniversity Hospitals Lake West Medical Center09-24-2024 History of Present illness Narrative* Ginna Em RN - 08/02/2024 8:53 AM EDT CDM Telephonic Outreach Provider Action/FYI CHF Assisted living staff assist with meals, medications, wts, and BPs Spoke with the patient who has no symptoms CHF but has had a head cold for the past 3-4 days. He saw his PCP last week when it started. No SOB or fevers. Instructed to call PCP office if symptoms worsen. At his request, sent SpreadShout message with phone number for billing. Completed CHF goal. Appointments for Next 60 Days Date Time Provider Location Dept Phone 08/22/2024 11:00 AM LAB [facility] Cardona [phone] 09/15/2024 11:15 AM LAB [facility] Cardona [phone] 09/15/2024 11:30 AM BALJINDER GALLOWAY [place] [phone] 09/27/2024 10:30 AM [facility] [address] J [phone] 09/27/2024 11:00 AM IRAM JOHNSON [facility] J [phone] Contacted for: Routine Telephonic Outreach Contact made [...] pounds in a week? 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 Routed to: No Action Needed MARCELO Education Provided this Outreach: No Ginna Em RN August 02, 2024 11:23 AM documented in this encounterVan Wert [facility] Hospital09-20-2024 NoteUniversity Hospitals Lake West Medical Center09-20-2024 History of Present illness Narrative* Ronaldo Pleitez MD - 07/29/2024 11:33 AM EDT This note was created using [employer]. Subjective Srini Luis is a 88 year old male was here with daughter. He had minor congestion and cough for afew days. He was tested negative for Covid at [facility]. Overall, he felt well. His cardiovascular issues were stable. His anemia is monitored by Dr. Galloway. CAD, CHF,and pacemaker was monitored by Dr. Minor. He developed recurrent restless legs, and physical therapy was started for ambulation, and this washelping. 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 Ronaldo Pleitez MD documented in this encounterVan Wert County Hospital09-13-2024 Telephone encounter Note * Telephone Encounter - Sinai Jay - 07/22/2024 12:04 PM EDT Lab scheduled [facility] Work Phone: 1(748) 550-505809-13-2024 Miscellaneous Notes* Telephone Encounter - Sinai Jay - 07/22/2024 12:04 PM EDT Lab scheduled * Telephone Encounter - Liza Shipman LPN - 07/22/2024 9:03 AM EDT Patient notified. PSS- please schedule a lab appointment for CBC(?TX) 08/22/2024 @ 11:00. Patient is aware of appointment date and time. Liza Shipman LPN * Telephone Encounter - Baljinder Galloway DO - 07/22/2024 6:30 AM EDT Hgb down a tiny bit, but essentially stable. Recheck CBC for poss trans in about a month. Baljinder Galloway DO documented in this encounterVan Wert County Hospital09-13-2024 Telephone encounter Note * Telephone Encounter - Liza Shipman LPN - 07/22/2024 9:03 AM EDT Patient notified. PSS- please schedule a lab appointment for CBC(?TX) 08/22/2024 @ 11:00. Patient is aware of appointment date and time. Liza Shipman LPN [facility]09-13-2024 Telephone encounter Note* Telephone Encounter - Baljinder Galloway DO - 07/22/2024 6:30 AM EDT Hgb down a tiny bit, but essentially stable. Recheck CBC for poss trans in about a month. Baljinder Galloway DO [facility]08-27-2024 NoteUniversity Hospitals Lake West Medical Center08-27-2024 History of Present illness Narrative* Ginna Em, RN - 07/05/2024 8:14 AM EDT CDM Telephonic Outreach Provider Action/FYI 2nd TO attempt CHF Assisted living staff assist with meals, medications, wts, and BPs Spoke with the patient who reports that he is feeling well and has no needs at this time. He has spoken with the dietary staff at his assisted living facility about the salt content in the food. Last time reached by Timing Adjuster: 05/11/24 with 3 attempts since then. ADL/falls/goals [...] Location Dept Phone [facility]/21[facility]2024 10:[facility] [phone] 07/29/2024 11:00 AM PLEITEZRONALDO Aquino [facility] Marva [phone] Contacted for: Routine Telephonic Outreach Contact made with patient: Yes Patient identified by name and date of . Discussed care with patient Are you experiencing any new or worsening symptoms you need to talk about today? No Disease Specific Do you check your blood pressure at home? Yes, Enter readings: states BPs are good when staff checkthem Do you have new or worsening shortness [...] pounds in a week? 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 Routed to: No Action Needed MARCELO Education Provided this Outreach: No Ginna Em RN July 05, 2024 2:10 PM documented in this encounterVan Wert County Hospital08-26-2024 NoteUniversity Hospitals Lake West Medical Center08-26-2024 History of Present illness Narrative* Ginna Em RN - 07/04/2024 3:52 PM EDT CDM Telephonic Outreach Provider Action/FYI CHF Assisted living staff assist with meals, medications, wts, and BPs Left VM. Last time reached by Timing Adjuster: 06/08/24 with 3 attempts since then. ADL/falls/goals assessments due: 10/07/24 Last time SDH for transportation/food insecurity completed: 12/03/23 Recent admit/ED visit since last CDM call?: NA Goals:Review CHF zone sheet at next call Appointments for Next 60 Days Date Time Provider Location Dept Phone 07/21/2024 10:00 AM [facility] Cardona [phone] 07/29/2024 11:00 AM RONALDO PLEITEZ [facility] [place] [phone] Contacted for: Routine Telephonic Outreach Contact made with patient: No, left message. Ginna Em RN July 04, 2024 3:56 PM documented in this encounterVan Wert County Hospital08-09-2024 History of Present illness Narrative* Israel Minor MD - 06/17/2024 11:46 AM EDT Dual Pacer Remote Check Date: June 17, 2024 Time: 11:46 AM Devices: Implants Lead Ra Lead Biotronik-09/17/2022 - Implanted Heart Model/Cat number: ADAIR Pena [id number] Serial number: [id number] Anodic Operator: ThumbRONIAllmyapps Lot number: LEFT AXILLARY VEIN Size: Right Atrial Pacing Lead Rv Lead Biotronik-09/17/2022 - Implanted Heart Model/Cat number: ADAIR Pena [id number] Serial number: [id number] Anodic Operator: ThumbRONIAllmyapps Lot number: LEFT CEPHALIC VEIN Size: Right Ventricular Pacing Lead Pacemaker Dual Pacer Biotronik-09/17/2022 - Implanted (Left) Chest Wall Model/Cat number: CHELIORA [id number] Serial number: [id number] Anodic Operator: ThumbRONIAllmyapps Lot number: INITIAL DUAL PACER IMPLANT. Size: [...] View External Cardiology - Programme Strips [ID [id number]] documented in this encounterVan Wert County Hospital08-08-2024 History of Present illness Narrative* Baljinder Galloway, - 06/16/2024 9:36 AM EDT Diagnosis: 1) CMML. HPI: The patient is an 88-year-old male with a past medical history significant for coronary arterydisease (four-vessel CABG), stroke, paroxysmal atrial fibrillation, hypertension, [...] (with VAFs): SF3B1 p.H662Q (41.7%) and TET2 p.O6971Klx*6 (46%). The overall findings are consistent with [...] as an outlier. Normal cytogenetics. Moved from [place] to assisted living at [facility]. Established care here. Drives. Current therapy: 1) Azacitidine. Cycle 10/14/2023. Most recent cycle 05/2023. He was also diagnosed with acute DVT of the internal jugular vein on the right. This occurred despite anticoagulation with rivaroxaban. Port was removed. He was admitted to [facility] 05/15 through 05/18 for gram-negative bacteremia attributed to right lower extremity cellulitis. He was initially treated with IV broad-spectrum antibioticsincluding Zosyn and discharged on Levaquin. 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 ([facility]) 08/22/2022: CVA (cerebral vascular accident) ([facility]) No date: Diverticulosis No date: History of anemia 07/22/2021: Hx of CABG Comment: 4 vessel CABG with ORNELAS-LAD, SVG-RI, SVG-OM, and SVG-RCA in [place] No date: Hypertension No date: 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 11/09/2008: ARTHROPLASTY TOTAL SHOULDER Comment: right 1999: ARTHROSCOPY OF JOINT UNLISTED Comment: Elbow right 07/21/2021: CABG (4) VEIN GRAFTS & ARTERIAL GRAFT(S) Comment: In [facility] 09/01/2005: COLONOSCOPY FLX DX W/COLLJ SPEC WHEN [...] will follow-up with physical therapy at assisted living for restless legs. Portions of this documentation were copied and pasted from previous office visit notes in order to provide a cohesive continuity of the history. The note has been reviewed and edited and updated as necessary. I spent a total of 15 minutes on the date of the service which included preparing to see the patient, kadh-gl-[id number] patient care, completing clinical documentation, obtaining and/or reviewing separately obtained history, performing a medically appropriate examination, counseling and educating the pat ient/family/caregiver, ordering medications, tests, or procedures, communicating with other HCPs (not separately reported), and communicating results to the patient/family/caregiver. Baljidner Galloway DO documented in this encounterVan Wert County Hospital08-01-2024 History of Present illness Narrative* Ginna Em, RN - 06/09/2024 8:34 AM EDT CDM Telephonic Outreach Provider Action/FYI 2nd TO attempt CHF Assisted living staff assist with meals, medications, wts, and BPs Left VM. Sent CHF zone sheet in SpreadShout message to be reviewed at next call. Last time reached by Timing Adjuster: 05/11/24 ADL/falls/goals assessments due: 10/07/24 Last time SDH for transportation/food insecurity completed: 12/03/23 Recent admit/ED visit since last CDM call?: NA Goals: Appointments for Next 60 Days Date Time Provider Location Dept Phone 06/16/2024 8:45 AM LAB [facility] Cardona [phone] 06/16/2024 9:10 AM BALJINDER GALLOWAY [facility] [phone] 06/17/2024 1:15 PM REM DEVICE [address] J [phone] 07/29/2024 11:00 AM RONALDO PLEITEZ [facility] [phone] Contacted for: Routine Telephonic Outreach Contact made with patient: No, left message. Ginna Em RN June 09, 2024 10:16 AM documented in this encounterVan Wert County Hospital07-31-2024 History of Present illness Narrative* Ginna Em, RN - 06/08/2024 8:41 AM EDT CDM Telephonic Outreach Provider Action/FYI CHF Assisted living staff assist with meals, medications, wts, and BPs Left VM Last time reached by Timing Adjuster: 05/11/24 ADL/falls/goals assessments due: 10/07/24 Last time SDH for transportation/food insecurity completed: 12/03/23 Recent admit/ED visit since last CDM call?: NA Goals: Appointments for Next 60 Days Date Time Provider Location Dept Phone 06/16/2024 8:45 AM LAB [facility]SEIN Cardona [phone] 06/16/2024 9:10 AM BALJINDER GLALOWAY [phone] 06/17/2024 1:15 PM [facility] [address] C[address] J [phone] 07/29/2024 11:00 AM RONALDO PLEITEZ [facility] Marva [phone] Contacted for: Routine Telephonic Outreach Contact made with patient: No, left message. Ginna Em RN June 08, 2024 11:34 AM documented in this encounterVan Wert County Hospital07-17-2024 History of Present illness Narrative* Eugenia Kraft MA - 05/25/2024 7:30 AM EDT POPULATION HEALTH NAVIGATION OUTREACH Action/FYI Patient is on the [place] Medication Adherence list for the following medications: ATORVASTATIN 20MG TAB Dispensed: 01/22/2024 12:00 AM Unit strength: 20 Unit form: tablet Days supply: 90 Quantity: 90 [place] [address] [address] [facility] [phone] Next dispense due date: 04/21/24 Outcome: Refills available on current prescription. Called [facility] and spoke with nurse Luu. Patient is taking the Atorvastatin daily. He was on 40 mg daily before it was changed to 20mg daily so they were giving him 1/2 tablet of the 40 mg tablets until the medication ran out. The patient currently has a one month supply remaining. Bell requested I contact [facility] to have another 90 day supply ordered. [...] 25, 2024 7:31 AM documented in this encounterVan Wert County Hospital07-03-2024 History of Present illness Narrative* Ginna Em RN - 05/11/2024 8:28 AM EDT CDM Telephonic Outreach Provider Action/FYI 2nd TO attempt CHF Assisted living staff assist with meals, medications, wts, and BPs Spoke with the patient who reports that he is feeling very well. He has a little ankle edema today because he did not put his stockings on today. No needs at this time. Last time reached by Timing Adjuster: 04/12/24 ADL/falls/goals assessments due: 10/07/24 Last time SDH for transportation/food insecurity completed: 12/03/23 Recent admit/ED visit since last CDM call?: NA Appointments for Next 60 Days Date Time Provider Location Dept Phone 06/16/2024 8:45 AM LAB [facility] HUSSEIN Cardona [phone] 06/16/2024 9:10 AM BALJINDER GALLOWAY [phone] 06/17/2024 1:15 PM [facility] [address] C[address] J [phone] Contacted for: Routine Telephonic Outreach Contact made [...] daily weight at home? 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 Routed to: No Action Needed MARCELO Education Provided this Outreach: No Ginna Em RN May 11, 2024 3:06 PM documented in this encounterVan Wert County Hospital07-02-2024 History of Present illness Narrative* Ginna Em RN - 05/10/2024 7:41 AM EDT CD Telephonic Outreach Provider Action/MARIA ELENAI CHF Assisted living staff assist with meals, medications, wts, and BPs Left VM Last time reached by Timing Adjuster: 04/12/24 ADL/falls/goals assessments due: 10/07/24 Last time SDH for transportation/food insecurity completed: 12/03/23 Recent admit/ED visit since last CDM call?: NA Appointments for Next 60 Days Date Time Provider Location Dept Phone 06/16/2024 8:45 AM LAB [facility]SE[facility] Marva Cardona [phone] 06/16/2024 9:10 AM BALJINDER GALLOWAY [phone] 06/17/2024 1:15 PM REM DEVICE [address] C[address] J [phone] Contacted for: Routine Telephonic Outreach Contact made with patient: No, left message. Ginna Em RN May 10, 2024 10:42 AM documented in this encounterVan Wert County Hospital06-04-2024 History of Present illness Narrative* Ginna Em RN - 04/12/2024 8:21 AM EDT [facility] Telephonic Outreach Provider Vinnie/GILBERTO CHF Assisted living staff assist with meals, medications, wts, and BPs Spoke with the patient who reports that he is feeling well and has no needs at this time. Last time reached by Timing Adjuster: 03/15/24 ADL/falls/goals assessments due: 10/07/24 Last time [...] pounds in a week? 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 Routed to: No Action Needed MARCELO Education Provided this Outreach: No Ginna Em RN April 12, 2024 10:51 AM documented in this encounterVan Wert County Hospital05-09-2024 History of Present illness Narrative* Baljinder Galloway, - 03/17/2024 12:11 PM EDT Diagnosis: 1) CMML. HPI: The patient is an 88-year-old male with a past medical history significant for coronary arterydisease (four-vessel CABG), stroke, paroxysmal atrial fibrillation, hypertension, [...] (with VAFs): SF3B1 p.H662Q (41.7%) and TET2 p.[id number]*6 (46%). The overall findings are consistent with [...] as an outlier. Normal cytogenetics. Moved from [place] to [facility] living at [facility]. Established care here. Drives. Current therapy: 1) Azacitidine. Cycle 10/14/2023. Most recent cycle 05/2023. He was also diagnosed with acute DVT of the internal jugular vein on the right. This occurred despite anticoagulation with rivaroxaban. Port was removed. He was admitted to [facility] 05/15 through 05/18 for gram-negative bacteremia attributed to right lower extremity cellulitis. He was initially treated with IV broad-spectrum antibioticsincluding Zosyn and discharged on Levaquin. 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 ARTHROPLASTY TOTAL SHOULDER 11/09/2008 right ARTHROSCOPY OF JOINT UNLISTED 1999 Elbow right CABG (4) VEIN GRAFTS & ARTERIAL GRAFT(S) 07/21/[address] [facility] COLONOSCOPY FLX DX W/COLLJ SPEC WHEN PFRMD [...] which included preparing to see the patient, [id number] patient care, completing clinical documentation, obtaining and/or reviewing separately obtained history, performing a medically appropriate examination, counseling and educating the pat ient/family/caregiver, communicating with other HCPs (not separately reported), and communicating results to the patient/family/caregiver. Baljinder Galloway DO documented in this encounterVan Wert County Hospital05-07-2024 History of Present illness Narrative* Ginna Em RN - 03/15/2024 8:14 AM EDT CDM Telephonic Outreach Provider Action/MARIA ELENAI 2nd TO attempt CHF Assisted living staff assist with meals, medications, wts, and BPs Spoke with patient who reports that he is feeling well and has no needs or concerns at this time. Last time reached by Timing Adjuster: 02/15/24 ADL/falls/goals assessments due: 10/07/24 Last time SDH for transportation/food insecurity completed: 12/03/23 Recent admit/ED visit since last CDM call?: NA Appointments for Next 60 Days Date Time Provider Location Dept Phone 03/17/2024 11:15 AM LAB [facility] Marva Cardona [phone] 03/17/2024 11:50 AM BALJINDER GALLOWAY Marva Jonh [phone] Contacted for: Routine Telephonic Outreach Contact made [...] daily weight at home? 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 Routed to: No Action Needed MARCELO Education Provided this Outreach: No Ginna Em RN March 15, 2024 11:13 AM documented in this encounterVan Wert [facility] Hospital05-06-2024 History of Present illness Narrative* Ginna Em RN - 03/14/2024 8:38 AM EDT CDM Telephonic Outreach Provider Action/FYI CHF Assisted living staff assist with meals, medications, wts, and BPs Left VM Last time reached by Timing Adjuster: 02/15/24 ADL/falls/goals assessments due: 10/07/24 Last time SDH for transportation/food insecurity completed: 12/03/23 Recent admit/ED visit since last CDM call?: NA Appointments for Next 60 Days Date Time Provider Location Dept Phone 03/17/2024 11:15 AM [facility] Marva [employer] [phone] 03/17/2024 11:50 AM BALJINDER GALLOWAY [place] [employer] [phone] Contacted for: Routine Telephonic Outreach Contact made with patient: No, left message. 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; Confirmed Blk below His by His Bundle Electrogram Chronic atrial fibrillation ([facility]) 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 ([facility]) 12/01/2022 CVA (cerebral vascular accident) ([facility]) 08/22/2022 Diverticulosis History of anemia 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 ARTHROPLASTY TOTAL SHOULDER 11/09/2008 right ARTHROSCOPY OF JOINT UNLISTED 1999 [place] right CABG (4) VEIN GRAFTS & ARTERIAL GRAFT(S) 07/21/[address] [facility] COLONOSCOPY FLX DX W/COLLJ SPEC WHEN PFRMD [...] current medications. 2. 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- ICD9: 414.01, ICD10: [...] dysfunction. The patient is on Xarelto. 7. senior care current use of anticoagulant - ICD9: V58.61, [...] of nerve issue in his back. He willdiscuss this with his primary care provider. documented in this encounterVan Wert County Hospital04-22-2024 History of Present illness Narrative* Israel Minor MD - 02/29/2024 2:00 PM EDT Dual Pacer Report In Office Check Date: February 29, 2024 Time: 11:20 AM Devices: Implants Lead Ra Lead Biotronik-09/17/2022 - Implanted Heart Model/Cat number: ADAIR S [id number] Serial number: [id number] Anodic Operator: Th[employer]RON[employer]myapps Lot number: LEFT AXILLARY VEIN Size: Right Atrial Pacing Lead Rv Lead [employer]ik-09/17/2022 - Implanted Heart Model/Cat number: ADAIR S 60 [id number] Serial number: [id number] Anodic Operator: [employer] Lot number: LEFT CEPHALIC VEIN Size: Right Ventricular Pacing Lead Pacemaker Dual Pacer Biot[employer]ik-09/17/2022 - Implanted (Left) Chest Wall Model/Cat number: GUY [id number] Serial number: [id number] Anodic Operator: BIOTRONIK [employer] Lot number: INITIAL DUAL PACER IMPLANT. Size: [...] and provider appointment. View External Cardiology - Car Retarder Operator Strips [ID [id number]] documented in this encounterVan Wert County Hospital04-13-2024 Miscellaneous Notes* Telephone Encounter - Samara Baker RN - 02/20/2024 11:59 AM EDT Called and spoke with Alexandra and notified of Dr. Pleitez's information, recommendations and orders.Order for TSH and this phone encounter with new med orders faxed to Alexandra at [facility] [phone]. * Telephone Encounter - Ronaldo Pleitez MD - 02/20/2024 11:35 AM EDT I sent new prescription to [facility]. Routine, no marinelli needed. Have patient come for repeat TSH in 3 months. * Telephone Encounter - Samara Baker RN - 02/20/2024 10:59 AM EDT Pt returned call and notified to change dosage of Synthroid. Pt states he lives at [facility] and that we need to notify them of med change. Called and spoke with nurse Alexandra and notified of medication Synthroid dosage change. Pt uses a mail order service [facility] where prescription was sent. That will probably [...] print order and fax to Alexandra at [phone] and she will[facility] to [facility] to get filled to take now. Please call Alexandra back at [facility] with provider's response. [phone] * Telephone Encounter - Yenny Gibson LPN - 02/20/2024 10:47 AM EDT Left a message for pt to call the office and ask to speak to a nurse. Yenny Gibson LPN * Telephone Encounter - Yenny Gibson LPN - 02/20/2024 10:47 AM EDT ----- Message from Ronaldo Pleitez MD sent at 02/20/2024 10:15 AM EDT ----- Vitamin D and B12 okay. Thyroid suppressed. Reduce Synthroid dose to 100 mcg daily. documented in this encounterVan Wert County Hospital04-08-2024 History of Present illness Narrative* Ginna Em RN - 02/15/2024 8:48 AM EDT CDM Telephonic Outreach Provider Action/FYI CHF Assisted living staff assist with meals, medications, wts, and BPs Spoke with patient who reports that he is feeling well and has no needs at this time. Appointments for Next 60 Days Date Time Provider Location Dept Phone 02/18/2024 11:15 AM LAB [facility] HUSSEIN Cardona [phone] 02/29/2024 2:00 PM [facility] [address] J [phone] 02/29/2024 2:20 PM IRAM JOHNSON [facility] J [phone] 03/17/2024 11:15 AM LAB [facility] HUSSEIN Cardona [phone] 03/17/2024 11:50 AM BALJINDER GALLOWAY Marva Jonh [phone] Contacted for: Routine Telephonic Outreach Contact made [...] No assisted living staff check Based on steel die printer, the following disposition is advised: No symptoms or symptoms present, not severe. Routed to: No Action Needed MARCELO Education Provided this Outreach: No Ginna Em RN February 15, 2024 10:55 AM documented in this encounterVan Wert County Hospital03-15-2024 Instructions* Patient Instructions* Ronaldo Pleitez MD - 01/22/2024 11:50 AM EDT SEE LASIX DOSE CHANGE. documented in this encounterVan Wert County Hospital03-15-2024 History of Present illness Narrative* Ronaldo Pleitez MD - 01/22/2024 11:38 AM EDT This note was created using [employer]. Subjective Srini Luis is a 88 year [...] Achieved Remission (Hcc) Cva (Cerebral Vascular Accident) ([facility]) Chb (Complete Heart Block) ([facility]) Mcc Current Use of Anticoagulant Mds (Myelodysplastic Syndrome) ([facility]) Myasthenia Gravis (Hcc) Lymphedema of Both Lower Extremities Chronic Heart Failure With Preserved Ejection Fraction ([facility]) Vertebral Artery Occlusion, Left Status Post Ligation [...] VITAMIN D 25 HYDROXY Ronaldo Pleitez MD * Ronaldo Pleitez MD - 01/22/2024 10:46 AM EDT Images from the original note [...] (Hematology). Conrad De La Rosa DPM (Podiatry) [facility]. [place] Miranda MD. Medical/Family history review Reviewed [...] with patient, and I recommended no further interventionat this time. Cognitive screening Mini Cog Score: [...] provided - Vaccines reviewed. documented in this encounterVan Wert County Hospital02-23-2024 History of Present illness Narrative* Ginna Em, RN - 01/01/2024 9:04 AM EST CDM Telephonic Outreach Provider Action/FYI CHF Assisted living staff assist with meals, medications, wts, and BPs Left Appointments for Next 60 Days Date Time Provider Location Dept Phone 01/21/2024 11:15 AM LAB [facility] HUSSEIN Cardona [phone] 01/22/2024 11:00 AM [facility] MARVA [phone] 02/09/2024 1:00 PM [facility] Y[facility] Ctr J [phone] 02/09/2024 1:40 PM IRAM JOHNSON [facility] Ctr J [phone] 02/18/2024 11:15 AM LAB [facility] Cardona [phone] Contacted for: Routine Telephonic Outreach Contact made with patient: No, left message. Ginna Em RN January 01, 2024 2:06 PM documented in this encounterVan Wert County Hospital02-15-2024 History of Present illness Narrative* Baljinder Galloway, - 12/24/2023 11:26 AM EST Diagnosis: 1) CMML. HPI: The patient is an 87-year-old male with a past medical history significant for coronary arterydisease (four-vessel CABG), stroke, paroxysmal atrial fibrillation, hypertension, [...] (with VAFs): SF3B1 p.H662Q (41.7%) and TET2 p.[id number]*6 (46%). The overall findings are consistent with [...] as an outlier. Normal cytogenetics. Moved from [place] to assisted living at [facility]. Established care here. Drives. Current therapy: 1) Azacitidine. Cycle 10/14/2023. Most recent cycle 05/2023. He was also diagnosed with acute DVT of the internal jugular vein on the right. This occurred despite anticoagulation with rivaroxaban. Port was removed. He was admitted to [facility] 05/15 through 05/18 for gram-negative bacteremia attributed to right lower extremity cellulitis. He was initially treated with IV broad-spectrum antibioticsincluding Zosyn and discharged on Levaquin. Blood cultures cleared prior to discharge. Presents for ongoing oncologic management. Interim history: No complaints today. No acute illnesses since last seen. Verified today: No dyspnea with walking. Uses cane. Drives. No unusual bleeding. Enjoys walking but limited by lumbar spinal stenosis. 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 ([facility]) 12/01/2022 CVA (cerebral vascular accident) ([facility]) 08/22/2022 Diverticulosis History of anemia Hx of CABG 07/22/2021 4 vessel CABG with ORNELAS-LAD, SVG-RI, SVG-OM, and SVG-RCA in [place] Hx of colonoscopy 09/27/2015 no reported polyps per patient recollection Hypertension Hypothyroidism senior care current use of anticoagulant Xarelto 20 mg daily Malnutrition of moderate degree (HCC) 09/05/2022 MDS (myelodysplastic syndrome) ([facility]) 03/12/2023 Mixed hyperlipidemia Myasthenia gravis ([facility]) Last seen by neurology July 29, 2017. [...] RIGHT OP SURGERY Right 12/18/[address] [facility] ARTHROPLASTY TOTAL SHOULDER 11/09/2008 right ARTHROSCOPY OF JOINT UNLISTED 1999 [place]bow right CABG (4) VEIN GRAFTS & ARTERIAL GRAFT(S) 07/21/[address] [facility] COLONOSCOPY FLX DX W/COLLJ SPEC WHEN PFRMD [...] will continue supportive care. Consider ABRAHAM if Hgdrifts lower. -Reviewed labs. Hemoglobin has remained stable [...] which included preparing to see the patient, [id number] patient care, completing clinical documentation, obtaining and/or reviewing separately obtained history, performing a medically appropriate examination, counseling and educating the pat ient/family/caregiver, ordering medications, tests, or procedures, communicating with other HCPs (not separately reported), and communicating results to the patient/family/caregiver. Baljinder Galloway DO documented in this encounterVan Wert County Hospital02-15-2024 Miscellaneous Notes* Telephone Encounter - Yenny Gibson LPN - 12/24/2023 10:23 AM EST Spoke with daughter and message below given. Also contacted [place] with results. [place] askedto have a copy faxed to [phone]. Done. Yenny Gibson LPN * Telephone Encounter - Yenny Gibson LPN - 12/24/2023 10:22 AM EST ----- Message from Ronaldo Pleitez MD sent at 12/24/2023 9:29 AM EST ----- Xray right elbow with no acute bone abnormality. documented in this encounterVan Wert County Hospital02-14-2024 History of Present illness Narrative* Jory Gallagher RT(R) - 12/23/2023 12:10 PM EST Radiology Service Progress Note PATIENT NAME: Srini [...] PATIENT PRESENTS WITH AN IMPLANTABLE OR ATTACHED MATE CHIEF: No RADIOLOGY DEPARTMENT: General X-ray: Exam(s) Completed: Upper Extremity X- Ray(s): Elbow, right PERIPHERAL IV DATA: Not applicable SIGNED BY: RT Shirley(R) December 23, 2023 12:38 PM documented in this encounterVan Wert County Hospital02-14-2024 History of Present illness Narrative* Ronaldo Pleitez MD - 12/23/2023 11:41 AM EST Images from the original note were not included. This note was created using [employer]. 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 Ronaldo Pleitez MD documented in this encounterVan Wert County Hospital02-12-2024 Miscellaneous Notes* Telephone Encounter - Liza Shipman LPN - 12/21/2023 4:12 PM EST Medication list updated. Liza Shipman LPN * Telephone Encounter - Baljinder Galloway DO - 12/21/2023 3:49 PM EST I checked in his history of medications. Looks like he reported to the MI at the time of OV he was not taking Lipitor so I took it off the med list. Baljinder Galloway DO * Telephone Encounter - Liza Shipman LPN - 12/21/2023 1:48 PM EST Daughter questioning why Lipitor was discontinued at OV 09/30/2023? Liza Shipman LPN * Telephone Encounter - Codie Metz - 12/21/2023 12:56 PM EST Pts daughter had a medication question she wanted to discuss. States skilled nursing didn't have a medication she thought he was on listed in their records. documented in this encounterVan Wert County Hospital02-09-2024 Miscellaneous Notes* Telephone Encounter - Robyn Hollis RN - 12/18/2023 1:49 PM EST Daughter reports pt changed insurance at the beginning of the year. Now needs Rx's sent to [email or web address]. Pended. Patient has been identified by name and date of : Yes, Provider [place] Date 12-18-23 Time 1:51 pm DaughterLiza phones [...] care: 01/22/2024 Please advise. Thank you. Robyn Hollis, RN. documented in this encounterVan Wert County Hospital11-29-2023 History of Present illness Narrative* Ginna Em RN - 10/07/2023 8:30 AM EST CDM Telephonic Outreach Provider Action/FYI 2nd TO attempt CHF Assisted living staff assist with meals, medications, wts, and BPs. Spoke with patient who reports that he is feeling well and has no needs at this time. Updated goals, falls, ADL assessments. Appointments for Next 60 Days Date Time Provider Location Dept Phone 10/29/2023 10:30 AM LAB [facility] Cardona [phone] 11/06/2023 1:50 PM [facility] [address] J [phone] 11/26/2023 10:30 AM LAB [facility] Cardona [phone] Contacted for: Routine Telephonic Outreach Contact made [...] pounds in a week? 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 Routed to: No Action Needed MARCELO Education Provided this Outreach: No Ginna Em RN October 07, 2023 11:12 AM documented in this encounterVan Wert County Hospital11-22-2023 History of Present illness Narrative* Baljinder Galloway DO - 09/30/2023 10:11 AM EST Diagnosis: 1) CMML. HPI: The patient is an 87-year-old male with a past medical history significant for coronary arterydisease (four-vessel CABG), stroke, paroxysmal atrial fibrillation, hypertension, [...] (with VAFs): SF3B1 p.[id number] (41.7%) and TET2 p.[id number]*6 (46%). The overall findings are consistent with [...] as an outlier. Normal cytogenetics. Moved from [place] to assisted living at [facility]. Established care here. Drives. Current therapy: 1) Azacitidine. Cycle 10/14/2023. Most recent cycle 05/2023. He was also diagnosed with acute DVT of the internal jugular vein on the right. This occurred despite anticoagulation with rivaroxaban. Port was removed. He was admitted to [facility] 05/15 through 05/18 for gram-negative bacteremia attributed to right lower extremity cellulitis. He was initially treated with IV broad-spectrum antibioticsincluding Zosyn and discharged on Levaquin. Blood cultures cleared prior to discharge. Presents for ongoing oncologic management. Interim history: No complaints today. No acute illnesses since last seen. HI is serving meals in room due to a case of Covid--Dining mc closed temporarily closed. No dyspnea with walking. Uses cane. Drives. No unusual bleeding. Enjoys walking but limited by lumbar spinal stenosis. Constipation can be an issue. Eats a lot of prunes. Using Miralax prn. 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 ([facility]) 12/01/2022 CVA (cerebral vascular accident) ([facility]) 08/22/2022 Diverticulosis History of anemia Hx of CABG 07/22/2021 4 vessel CABG with ORNELAS-LAD, SVG-RI, SVG-OM, and SVG-RCA in [place] Hx of colonoscopy 09/27/2015 no reported polyps per patient recollection Hypertension Hypothyroidism senior care current use of anticoagulant Xarelto 20 mg daily Malnutrition of moderate degree ([facility]) 09/05/2022 MDS (myelodysplastic syndrome) ([facility]) 03/12/2023 Mixed hyperlipidemia Myasthenia gravis ([facility]) Last seen by neurology July 29, 2017. 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 ARTHROPLASTY TOTAL SHOULDER 11/09/2008 right ARTHROSCOPY OF JOINT UNLISTED Elbow right CABG (4) VEIN GRAFTS & ARTERIAL GRAFT(S) 07/21/[address] [facility] COLONOSCOPY FLX DX W/COLLJ SPEC WHEN PFRMD [...] daily. New lower dose as of 2021 (Patient not taking: Reported on 08/06/2023) ferrous [...] care. We will continue supportive care. Consider ESAif Hg drifts lower. -Reviewed labs. Hemoglobin remains [...] which included preparing to see the patient, [id number] patient care, completing clinical documentation, obtaining and/or reviewing separately obtained history, performing a medically appropriate examination, counseling and educating the pat ient/family/caregiver, ordering medications, tests, or procedures, communicating with other HCPs (not separately reported), and communicating results to the patient/family/caregiver. Baljinder Galloway DO documented in this encounterVan Wert County Hospital10-30-2023 History of Present illness Narrative* Ginna Em RN - 09/07/2023 2:51 PM EDT CDM Telephonic Outreach Provider Action/FYI CHF Assisted [...] Location Dept Phone 09/30/2023 9:30 AM LAB [facility] WSTR HUSSEIN Cardona [phone] 09/30/2023 9:50 AM BALJINDER GALLOWAY [phone] Contacted for: Routine Telephonic Outreach Contact made [...] daily weight at home? 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 Routed to: No Action Needed MARCELO Education Provided this Outreach: No Ginna Em RN September 07, 2023 3:02 PM documented in this encounterVan Wert County Hospital09-22-2023 Miscellaneous Notes* Telephone Encounter - Jarad, Stephany, PERINATAL EDUCATOR - 07/31/2023 2:51 PM EDT Patient is agreeable to stopping his metoprolol. I will repor COMMERCIAL SPECIALIST to Iram again in 1 week. * Telephone Encounter - Stephany Abraham LPN - 07/30/2023 3:47 PM EDT Left message to return my call. * Telephone Encounter - Iram Johnson APRN.CNP - 07/30/2023 3:44 PM EDT Have him stop the metoprolol. Check the pacing in 1 week. * Telephone Encounter - Stephany Abraham LPN - 07/30/2023 3:07 PM EDT One week update. You stopped his digoxin to decrease ventricular pacing. 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 documented in this encounterVan Wert County Hospital09-20-2023 History of Present illness Narrative* Ginna Em RN - 07/29/2023 8:01 AM EDT [facility] Telephonic Outreach Provider Action/FYI CHF Spoke with patient who reports that [...] Provider Location Dept Phone 08/06/2023 11:45 AM [facility] HUSSEIN Cardona [phone] 08/06/2023 12:10 PM LAVERNEBALJINDER [phone] Contacted for: Routine Telephonic Outreach Contact made [...] pounds in a week? 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 Routed to: No Action Needed MARCELO Education Provided this Outreach: No Ginna Em RN July 29, 2023 2:12 PM documented in this encounterVan Wert County Hospital09-15-2023 History of Present illness Narrative* Older, MARTIN Bell.TUMOR REGISTRAR - 07/24/2023 10:10 AM EDT CC: Patient presents with: Follow Up HPI Srini Luis is a 87 year old male who presents today for above. He was [facility]. Reported lymphedema and oozing from left leg. 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 ([facility]) 12/01/2022 CVA (cerebral vascular accident) ([facility]) 08/22/2022 Diverticulosis History of anemia Hx of CABG 07/22/2021 4 vessel CABG with ORNELSA-LAD, SVG-RI, SVG-OM, and SVG-RCA in [place] Hx of colonoscopy 09/27/2015 no reported polyps per patient recollection Hypertension Hypothyroidism 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 Xarelto 20 mg daily Malnutrition of moderate degree ([facility]) 09/05/2022 MDS (myelodysplastic syndrome) ([facility]) 03/12/2023 Mixed hyperlipidemia Myasthenia gravis ([facility]) Last seen by neurology July 29, 2017. 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 ARTHROPLASTY TOTAL SHOULDER 11/09/2008 right ARTHROSCOPY OF JOINT UNLISTED Elbow right CABG (4) VEIN GRAFTS & ARTERIAL GRAFT(S) 07/21/[address] [facility] COLONOSCOPY FLX DX W/COLLJ SPEC WHEN PFRMD [...] options, medications, and coordinating care. 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; Confirmed Blk below His by His Bundle Electrogram Chronic atrial fibrillation ([facility]) Chronic heart failure with preserved ejection fraction ([facility]) 06/16/2023 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 ([facility]) 12/01/2022 CVA (cerebral vascular accident) ([facility]) 08/22/2022 Diverticulosis History of anemia Hx of CABG 07/22/2021 4 vessel CABG with ORNELAS-LAD, SVG-RI, SVG-OM, and SVG-RCA in [place] Hx of colonoscopy 09/27/2015 no reported polyps per patient recollection Hypertension Hypothyroidism 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 Xarelto 20 mg daily Malnutrition of moderate degree ([facility]) 09/05/2022 MDS (myelodysplastic syndrome) ([facility]) 03/12/2023 Mixed hyperlipidemia Myasthenia gravis ([facility]) Last seen by neurology July 29, 2017. 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 ARTHROPLASTY TOTAL SHOULDER 11/09/2008 right ARTHROSCOPY OF JOINT UNLISTED Elbow right CABG (4) VEIN GRAFTS & ARTERIAL GRAFT(S) 07/21/[address] [facility] COLONOSCOPY FLX DX W/COLLJ SPEC WHEN PFRMD [...] AFIB. Ventricular episodes: none. Changes: Changed him fromDDD to VVI d/t chronic AFIB. ASSESSMENT/PLAN: 1. Benign hypertension - ICD9: 401.1, ICD10: I10 Target BP 130/80 or less. The pt is on chronic medications. Blood pressure well controlled on current medications. 2. 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- ICD9: 414.01, ICD10: I25.10 4 Vessel CABG [...] Heart rate control and anticoagulation strategy. Rate iscontrolled. The patient is on Xarelto. Patient has complete heart block, we will stop digoxin. We will make sure his heart rate is controlled by remote pacemaker check in 1 week. 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 Stable. documented in this encounterVan Wert County Hospital09-14-2023 History of Present illness Narrative* Israel Minor MD - 07/23/2023 10:00 AM EDT Dual Pacer Report In Office Check Date: July 23, 2023 Time: 8:34 AM Devices: Implants Lead Ra Lead Biotronik-09/17/2022 - Implanted Heart Model/Cat number: ADAIR S [id number] Serial number: [id number] Anodic Operator: [employer]apps Lot number: LEFT AXILLARY VEIN Size: Right Atrial Pacing Lead Rv Lead [employer]otronik-09/17/2022 - Implanted Heart Model/Cat number: ADAIR S [id number] Serial number: [id number] Anodic Operator: [employer] Lot number: LEFT CEPHALIC VEIN Size: Right Ventricular Pacing Lead Pacemaker Dual Pacer Biotronik-09/17/2022 - Implanted (Left) Chest Wall Model/Cat number: CHELIORA [id number] Serial number: [id number] Anodic Operator: [employer] Lot number: INITIAL DUAL PACER IMPLANT. Size: [...] 160 Additional Device Information -VS percent: 13% -COMMERCIAL SPECIALIST percent: 81% AP-VS percent: 0% AP-COMMERCIAL SPECIALIST percent: 4% Atrial: Threshold: Chronic AFIB Programmed [...] and provider appointment. View External Cardiology - Car Retarder Operator Strips [ID [id number]] documented in this encounterVan Wert County Hospital09-07-2023 History of Past illness Narrative* Problem [...] July 2017 when he's been off medication senior care current use of ant icoagulants with INR goal of 2.0-3.0 01/05/2023 01/05/2023 CHB (complete heart block) 09/17/2022 1 11/18/2021 Overview: 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; Confirmed Blk below His by His Bundle Electrogram Symptomatic bradycardia 09/15/2022 111 Weakness generalized 09/15/2022 024 Malnutrition of moderate [...] , severe LCS L2-3 Osteoarthritis, generalized 06/16/2023 senior care current use of ant icoagulants with INR goal of 2.0-3.0 09/15/2022 Nocturnal hypoxemia 08/29/20 Overview: On oxygen at night PVC's (premature ventricular contractions) 06/16/2023 RBBB 06/16/2023 documented as of this encounter (statuses as of 01/22/2024) [facility]09-07-[facility] History of Past illness Narrative* Problem Noted Date Diagnosed Date Resolved Date RBBB 07/16/2023 01/22/2024 Nocturnal hypoxemia 07/16/2023 01/22/20 Overview: On oxygen at night Diverticulosis 07/16/2023 [...] July 2017 when he's been off medication 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 [...] , severe LCS L2-3 Osteoarthritis, generalized 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 goal of 2.0-3.0 09/15/2022 Nocturnal hypoxemia 08/29/20 Overview: On oxygen at night PVC's (premature ventricular contractions) 06/16/2023 RBBB 06/16/2023 documented as of this encounter (statuses as of 02/15/2024) [facility]-07-[facility] History of Past illness Narrative* Problem [...] July 2017 when he's been off medication senior care current use of ant icoagulants with INR [...] , severe LCS L2-3 Osteoarthritis, generalized 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 CHF Appointments for Next 60 Days Date Time Provider Location Dept Phone 07/09/2023 1:30 PM LAB [facility] WSTR HUSSEIN Cardona [phone] 07/23/2023 10:00 AM [facility] [address] J [phone] 07/23/2023 10:40 AM IRAM JOHNSON [facility] J [phone] 07/23/2023 1:30 PM [facility] [phone] 07/24/2023 10:20 AM ARABELLA BATES [facility] MAR[facility] [phone] 08/06/2023 11:45 AM [facility] [phone] 08/06/2023 12:10 PM BALJINDER GALLOWAY [place] [phone] Contacted for: Routine Telephonic Outreach Contact made with patient: No, left message. Ginna Em RN July 02, 2023 2:35 PM documented in this encounterVan Wert County Hospital08-04-2023 Instructions* Patient Instructions* Ronaldo Pleitez MD - 06/12/2023 11:22 AM EDT See Hand written orders. documented in this encounterVan Wert County Hospital08-04-2023 History of Present illness Narrative* Ronaldo Pleitez MD - 06/12/2023 10:34 AM EDT This note was created using UXFLIPriter. Subjective Patient presents with: [facility] Srini Luis is a 87 year old male seen with his daughter and POA. He just moved to [facility] from [place]. He was having some vague discomfort on [...] and referral to lymphedema clinic were recommended. 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 ([facility]) 12/01/2022 CVA (cerebral vascular accident) ([facility]) 08/22/2022 Diverticulosis History of anemia Hx of CABG 07/22/2021 4 vessel CABG with ORNELAS-LAD, SVG-RI, SVG-OM, and SVG-RCA in [place] Hx of colonoscopy 09/27/2015 no reported polyps per patient recollection Hypertension Hypothyroidism senior care current use of anticoagulant Xarelto 20 mg daily Malnutrition of moderate degree ([facility]) 09/05/2022 MDS (myelodysplastic syndrome) ([facility]) 03/12/2023 Mixed hyperlipidemia Myasthenia gravis ([facility]) Last seen by neurology July 29, 2017. [...] fibrillation) (HCC) 2020 Post CABG atrial fibrillation Primary localized [...] RIGHT OP SURGERY Right 12/18/[address] [facility] ARTHROPLASTY TOTAL SHOULDER 11/09/2008 right ARTHROSCOPY OF JOINT UNLISTED Elbow right CABG (4) VEIN GRAFTS & ARTERIAL GRAFT(S) 07/21/[address] [facility] COLONOSCOPY FLX DX W/COLLJ SPEC WHEN PFRMD [...] One plus a half tablet every morning [facility] May 21 2023 , new dose) digoxin [...] hematology oncology. 4. 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- ICD9: 414.01, ICD10: I25.10 Stable. 5. 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 Follow up with hematology oncology. 6. History of bacteremia - ICD9: V12.09, ICD10: Z87.898 Resolved. Ronaldo Pleitez MD documented in this encounterVan Wert County Hospital07-27-2023 History of Present illness Narrative* Ginna Em RN - 06/04/2023 8:22 AM EDT [facility] Telephonic Outreach Provider Vinnie/GILBERTO Spoke with patient [...] and low salt intake. He lives in [facility] where he reports he receives meals, medication administration,and nursing assessment of BPs and wts. No transportation or food insecurity needs found from asking SDOH questions. His daughter has been assisting to ensure that he has transportation to [facility]. CHF listed on PCP's 05/21/23 note. Appointments for Next 60 Days Date Time Provider Location Dept Phone 06/11/2023 1:30 PM [facility] MATTTR HUSSEIN Cardona [phone] 06/12/2023 10:00 AM RONALDO PLEITEZ [facility] [place] [phone] 06/25/2023 1:30 PM [facility] M[facility] HUSSEIN Cardona [phone] 07/09/2023 1:30 PM [facility] VIKY Cardona [phone] 07/23/2023 10:00 AM [facility] [address] J [phone] 07/23/2023 10:40 AM ELIZABETH IRAM [facility] C[facility] J [phone] 07/23/2023 1:30 PM LAB [facility] HUSSEIN Cardona [phone] Contacted for: Routine Telephonic Outreach Contact made [...] a week? 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 Routed to: No Action Needed MARCELO Education Provided this Outreach: No Ginna Em RN June 04, 2023 2:52 PM documented in this encounterVan Wert County Hospital07-21-2023 History of Present illness Narrative* Christa [...] 29, 2023 4:14 PM documented in this encounterVan Wert County Hospital07-18-2023 Miscellaneous Notes* Telephone Encounter - Yadira Walsh LPN - 05/26/2023 3:51 PM EDT Received a fax from [facility] stating readmit orders with medication changes Medication list updated Yadira Walsh LPN documented in this encounterVan Wert County Hospital07-17-2023 Miscellaneous Notes* Telephone Encounter - Israel [...] advise. Erich Carrillo MA documented in this encounterVan Wert County Hospital07-17-2023 Miscellaneous Notes* Telephone Encounter - Regina Mandujano LPN - 05/25/2023 8:04 AM EDT Images from the original note were not included. Shorty Faith MD You; [facility] General Surgery Pool 2 days ago [...] there. Patient is currently getting infusion at [facility] and nurse is concerned for Dehiscence of surgical site and infection. Please advise and contact Liza at [phone]. Regina Mandujano LPN documented in this encounterVan Wert County Hospital07-13-2023 Instructions* Patient Instructions* Israel Pruitt DO - 05/21/2023 12:31 PM EDT 1. Patient is advised to increase Lasix to 40 mg tablet taking 1-1/2 tablet for a total of 60 mg q.morning 2. Patient is advised within the next 2 weeks to recheck renal status and electrolytes with a BMP at [facility] #3 patient has follow-up with primary care that he be transitioning to at [place] [facility] on June 12 #4 patient will continue close observation and management of hematological issues including 1 unit of packed red blood cell transfusion tomorrow with [facility] hematology with Dr. Galloway #5 no other changes in current medications including completing Levaquin as written by infectious disease upon discharge from [facility] 6. Please call with any significant [...] with any open wounds documented in this encounterVan Wert County Hospital07-13-2023 History of Present illness Narrative* Israel Pruitt DO - 05/21/2023 11:52 AM EDT Patient presents with: Hospital F/U HPI: Srini Luis is a 87 year old male who presents to the office today for hospital follow-up with us. Patient was admitted to [facility] under the hospitalist service on May 24 was discharged on May 18 back to his independent setting in [place]. 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; Confirmed Blk below His by His Bundle Electrogram CVA (cerebral vascular accident) ([facility]) 08/22/2022 Diverticulosis History of anemia Hx of CABG 07/22/2021 4 vessel CABG with ORNELAS-LAD, SVG-RI, SVG-OM, and SVG-RCA in [place] Hx of colonoscopy 09/27/2015 no reported polyps per patient recollection Hypertension 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 [...] Dr Matt Flannery. PAF (paroxysmal atrial fibrillation) ([facility] [facility]) 2020 Post CABG atrial fibrillation PVC's (premature ventricular contractions) RBBB Status post ligation of left atrial appendage 07/2021 At time of CABG PAST SURGICAL HISTORY Procedure Laterality Date ANKLE RIGHT OP SURGERY Right 12/18/[address] [facility] ARTHROPLASTY TOTAL SHOULDER 11/09/2008 right ARTHROSCOPY OF JOINT UNLISTED Elbow right CABG (4) VEIN GRAFTS & ARTERIAL GRAFT(S) 07/21/[address] 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 ([facility]) Nocturnal Hypoxemia Cva (Cerebral Vascular Accident) ([facility]) Chb (Complete Heart Block) ([facility]) Mcc Current Use of Anticoagulant Mds (Myelodysplastic Syndrome) ([facility]) Myasthenia Gravis ([facility]) ALLERGIES Allergen Reactions Simvastatin Other: See Comments [...] k/uL 0.64 (L) 0.38 (L) 0.60 (L) Calloway% % 4.5 3.8 4.2 Abs Calloway <0.87 k/uL 0.27 0.30 0.14 Eosin% % [...] is slated to see primary care in [facility] on June - BASIC METABOLIC PNL 4. [...] under the direction of hematology oncology at [place] I spent a total of 35 minutes on the date of the service which included preparing to see the patient, [id number] patient care, completing clinical documentation, obtaining and/or [...] date. Yenny Browning MA documented in this encounterVan Wert County Hospital07-11-2023 Miscellaneous Notes* Telephone Encounter - Liza [...] Daughter called stating patient was discharged from [facility] yesterday. She is asking if there is a way to cut back some of the lab appointments that are scheduled for patient. She states he had been jabbed quite a bit at the hospital and she is afraid he would not want to come to lab appt this . Please call Liza and advise. documented in this encounterVan Wert County Hospital07-10-2023 Discharge summary Author Marshal Rebolledo [facility] May 18, 2023 3:00pm Note Date/Time May 18, 2023 9:45 am [facility] Medical Records Department [address] [address] Discharge Summary 05/18/23 0942 MR#: [id number] Acct: [id number] Name: SRINI LUIS Rep #:[id number] : 1935 87 From: Marshal Nuñez PCP: Hamzah Pruitt Status:ADM [facility] Prov[facility] Date of Admission: 05/14/23 Date [...] 80.3 H, Lymph % (Auto) 11.3 L, Calloway % (Auto) 4.2, Eos % (Auto) 1.9, [...] Assisted Living Charges/Coding Visit Charges Inpatient E&M: 82544 Disch Hosp >30min 05/18/23 1500 <Electronically signed by Marshal Rebolledo MD> Cosigner Signature (if applicable): CC: Dr. Marshal Rebolledo MD; Hamzah Pruitt~ Signed [facility] Work Phone: 1(824) 976-815807-10-2023 Discharge summary Author Marshal Rebolledo [facility] May 18, 2023 2:58pm Note Date/Time May 18, 2023 9:36 am [facility] Medical Records Department [address] [place] [address] Instructions for Home/Discharge Instructions 05/18/23812 MR#: [id number] Acct: [id number] Name: SRINI LUIS Rep #:[id number] : [...] Order can be placed): Assisted Living 05/18/23 1459<Electronically signed by Marshal Rebolledo MD>Marshal Rebolledo MD CC: Dr. Mary Prather MD; Dr. Homer Marsh MD; Hamzah Pruitt ~ Signed [facility] Work Phone: 1(344) 322-134807-09-2023 Progress note Author Marshal Rebolledo [facility] May 17, 2023 12:53pm Note Date/Time May 17, 2023 12:53 pm [facility] Medical Records Department [address] [place] [address] Progress Note - Hospitalist 05/17/23 1249 MR#: [id number] Acct: [id number] Name: SRINI LUIS Rep #:[id number] : 1935 87 From: Marshal Nuñez PCP: Hmazah Pruitt Status:ADM IN Location: [place] [address] 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 -7/8: Lactic acidosis improved and blood cultures growing [...] ppx: Xarelto Charges/Coding Visit Charges Inpatient E&M: 79138 Subs Hosp L2 05/17/23 1253 <Electronically signed by Marshal Rebolledo MD> Cosigner Signature (if applicable): CC: ~ Signed [facility] Work Phone: 1(141) 264-510807-08-2023 Consult note Author Marshal Rebolledo [facility] May 16, 2023 3:21pm Note Date/Time May 16, 2023 10:16 am [facility] Medical Records Department [address] [place] [address] Pharmacokinetic/Renal -Consult 05/16/23 1016 MR#: [id number] Acct: [id number] Name: SRINI LUIS Rep #:[id number] : 1935 87 From: Nunu Stevens PCP: Hamzah Pruitt Status:ADM IN Location: [place] [address] Consult Antibiotic Management Pharmacy has been consulted [...] <Electronically signed by Nunu Stevens> Date _ Nuun Stevens 05/16/23 1521 <Electronically signed by Marshal Rebolledo MD> Cosigner Signature (if applicable): Date Marshal Rebolledo MD CC: ~ Signed [facility] Work Phone: [phone]) 596-457707-08-2023 Progress note Author Marshal Rebolledo [facility] May 16, 2023 9:35am Note Date/Time May 16, 2023 9:20a m [facility] Medical Records Department [address] [place] [address] Progress Note - Hospitalist 05/16/23908 MR#: [id number] Acct: [id number] Name: SRINI LUIS Rep #:[id number] : 1935 87 From: Marshal Nuñez PCP: Hamzah Pruitt Status:ADM IN Location: [place] [id number] 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) Atherosclerotic heart disease of [place] coronary artery without angina pectoris (05/14/23) Atrioventricular [...] 86.7 H, Lymph % (Auto) 7.7 L, Calloway % (Auto) 2.6, Eos % (Auto) 1.3, [...] ppx: Xarelto Charges/Coding Visit Charges Inpatient E&M: 89670 Subs Hosp L2 05/16/23 0935 <Electronically signed by Marshal Rebolledo MD> Cosigner Signature (if applicable): CC: ~ Signed [facility] Work Phone: 1(574) 587-173307-07-2023 Consult note Author Mary Prather [facility] May 15, 2023 7:41pm Note Date/Time May 14, 2023 10:02 pm [facility] Medical Records Department [address] [place] [place] [address] Pharmacokinetic/Renal -Consult 05/14/232155 MR#: [id number] Acct: [id number] Name: DOMINGOSRINI DALY Rep #:[id number] : 1935 87 From: Ned Vinson PCP: Hamzah Pruitt Status:ADM IN Y Location: [place] [address] Consult Antibiotic Management Pharmacy has been consulted [...] Date Mary Prather MD CC: ~ Signed [facility] Work Phone: 1(185) 563-494507-07-2023 Consult note Author Mary Prather [facility] May 15, 2023 7:41pm Note Date/Time May 15, 2023 7:38a m [facility] Medical Records Department [address] [place] [address] Pharmacokinetic/Renal -Consult 05/15/2338 MR#: [id number] Acct: [id number] Name: SRINI LUIS Rep #:[id number] : 1935 87 From: Sammie Dean PCP: Hamzah Pruitt Status:ADM IN Y Location: [place] [address] Consult Antibiotic Management Pharmacy has been consulted [...] Sammie Dean> Date _ Sammie Dean 05/15/23 194 <Electronically signed by Mary Prather MD> Cosigner Signature (if applicable): Date Mary Prather MD CC: ~ Signed [facility] Work Phone: 1([phone]) 792-256607-07-2023 Progress note Author Mary Prather [facility] May 15, 2023 4:16pm Note Date/Time May 15, 2023 8:37a [facility] Medical Records Department [address] [place] [address] Progress Note - Hospitalist 05/15/23 0834 MR#: [id number] Acct: [id number] Name: JOLLYSRINI RODRIGUEZ MARY Rep #:[id number] : 1935 87 From: Mary Prather MD PCP: Hamzah Pruitt Status:ADM IN Location: [place] [address] 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) Atherosclerotic heart disease of [place] coronary artery without angina pectoris (05/14/23) Atrioventricular block, 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) Cellulitis of right lower limb (05/14/23) Hypoxemia (05/14/23) Presence of cardiac pacemaker (07/06/23) Subjective Subjective Patient still has pain in [...] (Auto) 89.7 H, Lymph% (Auto) 5.6 L, Calloway % (Auto) 2.7, Eos % (Auto) 0.0, [...] (Auto) 89.8 H, Lymph% (Auto) 6.2 L, Calloway % (Auto) 1.8, Eos % (Auto) 0.2, Baso % (Auto) 0.6, AbsoluteNeuts (auto) 7.5, Absolute Lymphs (auto) 0.52 L, Nucleated RBC % 0.4, Platelet Estimate ADEQUATE, Polychromasia 1+, Macrocytosis 1+, PT 18.2 H, INR 1.5, Yzitpw109, Potassium 4.1, Chloride 102, Carbon Dioxide 34.0 [...] -Continue statin and aspirin #CMML -F/w Dr. Gallowya, chemo qmonth #Atrial fibrillation -Per history -Patient [...] documentation, 37Minutes Charges/Coding Visit Charges Inpatient E&M: 14533 Subs Hosp L2 05/15/23 1616 <Electronically signed by Mary Prather MD> Cosigner Signature (if applicable): CC: ~ Signed [facility] Work Phone: [phone]) [phone] Discharge summary Author Pedro Diaz [facility] May 14, 2023 10:33pm Note Date/Time May 14, 2023 12:[address] [facility] Medical Records Department [address] [place] [address] Emergency Department Summary 05/14/23 MR#: [id number] Acct: [id number] Name: SRINI LUIS Rep #:[id number] : 1935 87 From: Pedro Diaz MD PCP: Hamzah Pruitt Status:ADM IN Location: [place] [address] HPI History of Present Illness Chief Complaint: Fever Informant: patient and family Narrative Narrative: Patient has a history of CMML, is following with Dr. Galloway at [facility] oncology, and has been getting chemotherapy injections. [...] clotted off according to a family member. [facility] Medical History (Updated 05/14/23 @ 16:07 [...] preliminarily before any of the other testing, instrument and controls technician told me it was negative for [...] 89.7 H Lymph % (Auto) 5.6 L Calloway % (Auto) 2.7 Eos % (Auto) 0.0 [...] Hypoxemia, Sepsis Disposition Disposition: Acute Care Hospital [facility] What to do if you have Problems For any increased pain, shortness of breath, bleeding, nausea or vomiting, chestpain, or any unexpected problems, contact your Primary Care Provider. Call [facility] ([phone]) or report to the closest Emergency Room. Call 911 if necessary. 05/14/232232 <Electronically signed by Pedro Diaz MD> Cosigner Signature (if applicable): CC: Hamzah Edmond ~ Signed [facility] Work Phone: 1(797) 291-880007-06-2023 History and physical note Author Mary Prather [facility] May 14, 2023 5:26pm Note Date/Time May 14, 2023 4:54p m [facility] Medical Records Department [address] [place] [address] H&P Exam - Hospitalist 05/14/23 1647 MR#: [id number] Acct: [id number] Name: SRINI LUIS Rep #:[id number] : 1935 87 From: Mary Prather MD PCP: Hamzah Pruitt Status:ADM IN Location: [facility] [id number] HPI - General General Date of Admission: 05/14/23 Date of Service: 05/14/23 Chief Complaint: Chills, RLE pain HPI Narrative Mr. 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 [...] coughing. No other complaints at this time [facility] Medical History (Updated 05/14/23 @ 17:22 [...] (Auto) 89.7 H, Lymph% (Auto) 5.6 L, Calloway % (Auto) 2.7, Eos % (Auto) 0.0, [...] fluid overload Charges/Coding Visit Charges Inpatient E&M: 83935 Init Hosp L3 05/14/23 1726 <Electronically signed by Mary Prather MD> Cosigner Signature (if applicable): CC: Dr. Mary Prather MD; Hamzah Pruitt~ Signed [facility] Work Phone: 1(556) 103-762107-06-2023 Miscellaneous Notes* Telephone Encounter - Ileana Sosa RN - 05/14/2023 9:[address] Galloway patient CMML On vidaza Patient here today for CBC/poss transfusion. Patient has new c/o constant right lower extremity pain from the knee to his ankle. Spoke to Dr. Gates who advised an US of his RLE. Ileana Sosa RN documented in this encounterVan Wert County Hospital07-05-2023 Miscellaneous Notes* Telephone Encounter - Magali Payne RN - 05/13/2023 2:15 PM EDT Office visit note from Srini' visit with Dr. Faith on 05/11/2023 faxed to [facility] at [phone]. Fax confirmation sheet received. Magali Payne RN documented in this encounterVan Wert County Hospital07-05-2023 History of Present illness Narrative* Sammie Moeller RN - 05/13/2023 2:14 PM EDT patient had right arm port removed on 05/11/23, dressing over site had serous sanguinous drainage on it, dressing was removed site slightly ecchymotic sutures intact and no further drainage noted. Areacleaned around wound and clean 2x2 gauze and opsite applied, per request of patient. documented in this encounterVan Wert County Hospital07-03-2023 Nurse Note* Magali Payne RN - [...] 09/27/2015 Magali Payne RN documented in this encounterVan Wert County Hospital07-03-2023 Instructions* Patient Instructions* Magali Payne RN - 05/11/2023 4:58 PM EDT The following instructions are important for you related to your office visit today with the [facility] General Surgeons. Instructions After Port a [...] you should contact our office immediately @ [phone] and ask to be transferred to the General Surgery department. documented in this encounterVan Wert County Hospital07-03-2023 History of Present illness Narrative* Magali [...] UP VISIT - PORTACATH REMOVAL NAME: Srini Luis [facility] NO.: [id number] DATE OF SERVICE: 05/11/2023 : 1935 REFERRING PHYSICIAN: Israel Pruitt DO Srini is a patient Dr. Galloway is following [...] removal. Shorty Faith MD documented in this encounterVan Wert County Hospital06-30-2023 History of Present illness Narrative* Lena Colon RN - 05/08/2023 2:30 PM EDT Patient agrees to get lab work done on Thursday at 3pm then come to [facility] for treatment. Scheduled to go to surgical office at 3:45 for port removal. Lena Colon RN documented in this encounterVan Wert County Hospital06-29-2023 Miscellaneous Notes* Telephone Encounter - Esha Jackson LPN - 05/07/2023 4:09 PM EDT [facility] nurse notified of Dr Arita office contacting them for apt regarding port removal. Instructedthem to hold Xarelto after tomorrows dose. Nurse voices understanding. Esha Jackson LPN * Telephone Encounter - Baljinder Galloway DO - 05/07/2023 4:00 PM EDT I spoke with Dr. Faith. He is going to have his office staff contact [facility] to arrange office visit on Thursday to remove the port. Please ask the nursing staff at [facility] to hold his Xarelto after tomorrow's dose. Baljinder Galloway DO * Telephone Encounter - Israel Pruitt DO - 05/07/2023 9:[address] Galloway, Discussed the case of Mr. Luis today with interventional radiologist Dr. Manjeet Butler at [facility] interventional radiology this morning. We reviewed the [...] know and/or contact Dr. Manjeet Butler at [phone] to discuss further. As you would expect [...] there are schedule changes/medications/etc that we contact [place] directlyto prevent any confusion. Nurse # at [facility]. [phone] fax [phone]. This has been added to demographics. documented in this encounterVan Wert County Hospital06-28-2023 Miscellaneous Notes* Telephone Encounter - Esha Jackson LPN - 05/06/2023 5:09 PM EDT Per second phone, seems pt is going to be seen at [facility] tomorrow at 4pm. We were unaware of this as it can be difficult to see all of [facility] appointments. Esha Jackson LPN * Telephone Encounter [...] patient, notify him with the plan from [facility] and also need to notify the nurses and [facility] so they may also be aware of plan. * Telephone Encounter - Cami Plasencia - 05/06/2023 9:20 AM EDT Called [phone] for Manjeet Butler Spoke with someone in the office. [...] PM EDT Pt had port placed at [facility] in [place]. Our surgical dept states they can see him for a consult and removal. Please schedule pt for gen surg for port removal due to DVT. Esha Jackson LPN * Telephone Encounter - Esha Jackson LPN - 05/05/2023 4:09 PM EDT Yes he states he is. Spoke with nurse at [facility] and she verified as well. Esha Jackson [...] review. Esha Jackson LPN documented in this encounterVan Wert County Hospital06-28-2023 Miscellaneous Notes* Telephone Encounter - Lakesha Pabon MA - 05/06/2023 3:47 PM EDT Nurse called and notified per iram digoxin level looks good. Continue same dose. Nurse agreeable * Telephone Encounter - Iram Johnson APRN.MAURICIO - 05/06/2023 3:27 PM EDT Digoxin level looks good. Continue same dose. documented in this encounterVan Wert County Hospital06-28-2023 History of Present illness Narrative* Israel Goodson Edmond, - 05/06/2023 3:28 PM EDT After review with my PERINATAL EDUCATOR here in the office and reviewing multiple telephone notes it seems the patient is scheduled for port removal at [facility] tomorrow on May 07 . Is this true and all is taken care of for this patient ? Messages have been directed at me this afternoon to manage this patients acute right IJ DVT as a result of the patients indwelling port for chemotherapy Please confirm that all is set for this patient for tomorrow on the at [facility] IR Thanks , Israel Pruitt DO * Ginna Em RN - 05/06/2023 8:52 AM EDT CDM Telephonic Outreach Provider Action/GILBERTO Pruitt DO Multiple people have put notes in [...] orders or instructions. Thank you, Ginna Em strawhat blocking operatorTiming Adjuster HTN Needs SDH but got off the [...] I cannot arrange whatever treatment is necessary. [facility] notes indicate that several caregivers at [facility] are involved, and the patient is waiting [...] 05/06/2023 2:00 PM [facility] [place] [phone] 05/07/2023 2:00 PM [facility] [place] [phone] 05/08/2023 2:00 PM [facility] [place] [phone] 05/11/2023 3:30 PM TREATMENT RM 13 [facility] [place] [phone] 05/13/2023 2:00 PM [facility] RM [facility] [place] [phone] 05/14/2023 9:00 AM [facility] [place] [phone] 05/19/2023 2:20 PM GUILLERMINA CUMMINGS MAGDA [place] [phone] 05/21/2023 9:00 AM [facility] [place] [phone] 05/25/2023 9:00 AM [facility] [place] [phone] 05/28/2023 9:00 AM [facility] [place] [phone] 05/29/2023 2:45 PM [facility] [place] [phone] 05/29/2023 3:10 PM BALJINDER GALLOWAY [place] [phone] 06/01/2023 11:00 AM TREATMENT RM 10 [facility] [place] [phone] 06/02/2023 1:00 PM [facility] RM [facility] [place] [phone] 06/03/2023 1:30 PM [facility]MENT RM [facility] [place] [phone] 06/04/2023 1:30 PM TREATMENT RM 13 [facility] [place] [phone] 06/05/2023 1:30 PM [facility]MENT RM [facility] [place] [phone] 06/08/2023 1:30 PM [facility]MENT RM [facility] [place] [phone] 06/09/2023 1:30 PM [facility]MENT RM [facility] [place] [phone] 06/11/2023 9:00 AM [facility] [place] [phone] Contacted for: Routine Telephonic Outreach Contact made with patient: Yes Patient identified by name and date of . Discussed care with patient Are you experiencing any new or worsening symptoms you need to talk about today? No Disease Specific Do you check your blood pressure at home? No Do you have new or worsening shortness of breath with activity? 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 Routed to: No Action Needed MARCELO Education Provided this Outreach: No Ginna Em, RN May 06, 2023 12:58 PM documented in this encounterVan Wert County Hospital06-28-2023 Miscellaneous Notes* Telephone Encounter - Guillermina Cummings APRN.CNP - 05/06/2023 2:08 PM EDT Orders filed. * Telephone Encounter - Yadira Walsh LPN - 05/05/2023 4:49 PM EDT Images from the original note were not included. DO Yadira Valencia LPN, Please let patient know that he is free of immunity from Hepatitis B Will need immunization booster Please pend for signature Patient now lives in [place] . Appreciate us finding a way that the patient gets this immunization in [place]. 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 Hep B Surface Ab Quant >=12.00 mIU/mL <8.00 Low Resulting Agency CCM documented in this encounterVan Wert County Hospital06-28-2023 Miscellaneous Notes* Telephone Encounter - Guillermina Cummings APRN.CNP - 05/06/2023 2:06 PM EDT Noted. * Telephone Encounter - Baljinder Galloway DO - 05/06/2023 12:34 PM EDT No.I have not previously ordered it. PCP needs to put the order in. Baljinder Galloway DO * Telephone Encounter - Esha Jackson LPN - 05/06/2023 12:13 PM EDT Guillermina Cummings, TUMOR REGISTRAR for Dr Pruitt at [facility] calls to states the pt needs a Hep B booster. Their office is asking since the pt lives in [place] now if he could get his Hep B in [place]. [facility], but apparently a [place] doctor would need place order. Guillermina is asking if you would be willing the place the order. Please advise. Esha Jackson LPN documented in this encounterVan Wert County Hospital06-27-2023 Miscellaneous Notes* Telephone Encounter - Yadira [...] were not included. Received: 2 days ago DO Lena Valencia RN, Please pend a BNP and a BMP for 4 weeks on current Lasix dose Lasix dose just elevated, close observation of labs Renal function and renal status Thanks, Dr Pruitt documented in this encounterVan Wert County Hospital06-27-2023 Miscellaneous Notes* Telephone Encounter - Lakesha Pabon MA - 05/05/2023 2:05 PM EDT Called and spoke with the nurse's station at [facility] ([phone]) And nurse was notified EKG looks ok [...] in chart and letter/order was faxed to [phone]. * Telephone Encounter - Iram Johnson APRN.CNP [...] the medication was started Fax number is [phone] [place]. [place] Can you please help with this documented in this encounterVan [facility]ert [facility]06-26-[facility]23 History of Present illness Narrative* Jyothi Grimes RN - 05/04/2023 2:18 PM EDT Pt educated on coming in on Mondays and per Dr. Galloway's request to check CBC. Pt verbalized understanding. Jyothi Grimes RN documented in this encounterVan Wert County Hospital06-23-2023 History of Present illness Narrative* David Cervantes APRN.MAURICIO - 05/01/2023 12:52 PM EDT Chief Complaint Patient presents with: Follow Up HPI: Srini Luis is a 87 year [...] (with VAFs): SF3B1 p.H662Q (41.7%) and TET2 p.[id number] (46%). The overall findings are consistent with [...] 1.00 - 4.00 k/uL 1.05 0.82 (L) Calloway% % 7.4 5.8 Abs Calloway <0.87 k/uL 0.38 0.27 Eosin% % 2.1 [...] as necessary for today's visit. David Cervantes APRN.CNP documented in this encounterVan Wert County Hospital06-13-2023 History of Present illness Narrative* Shirley Ho RT(R) - 04/21/2023 8:00 AM EDT Radiology Service Progress Note PATIENT NAME: Srnii Luis DATE OF SERVICE: April 21, 2023 [...] 21, 2023 4:18 PM documented in this encounterVan Wert County Hospital06-12-2023 Instructions* Patient Instructions* Israel Pruitt, - 04/20/2023 2:47 PM EDT 1. Patient [...] and his son who is here from [place] today. 9. It anytime that the patient is having any significant change in gait stability or worsening symptoms as discussed today in HPI need to know 10. Patient will be seen by ophthalmology for more detailed exam of the patient's visual field. documented in this encounterVan Wert County Hospital06-12-2023 History of Present illness Narrative* Israel [...] who is here with us today from [place] who interacts with him by phone often [...] there are new bladder control issues Patient's VASCULAR PHYSICIAN imaging was MRI of the brain August [...] DO (Neurology) Ruby Duff, RN as Specialty Sales Representative Supervisor (Hematology/Oncology) Ginna Em, RN as Timing Adjuster (Unspecified) 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 ARTHROPLASTY TOTAL SHOULDER 11/09/2008 right ARTHROSCOPY OF JOINT UNLISTED Elbow right CABG (4) VEIN GRAFTS & ARTERIAL GRAFT(S) 07/21/[address] 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 ([facility]) Nocturnal Hypoxemia Cva (Cerebral Vascular Accident) ([facility]) Chb (Complete Heart Block) ([facility]) 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 Mds (Myelodysplastic Syndrome) ([facility]) ALLERGIES Allergen Reactions Simvastatin Other: See Comments [...] Lymph 1.00 - 4.00 k/uL 0.82 (L) Calloway% % 5.8 Abs Calloway <0.87 k/uL 0.27 Eosin% % 0.9 Abs [...] which included preparing to see the patient, [id number] patient care, completing clinical documentation, obtaining and/or reviewing separately obtained history, performing a medically appropriate examination, counseling and educating the pat ient/family/caregiver, ordering medications, tests, or procedures, communicating with other HCPs (not separately reported), independently interpreting results (not separately reported), communicatingresults to the patient/family/caregiver, and care coordination (not separately reported). Israel Pruitt DO documented in this encounterVan Wert County Hospital06-08-2023 History of Present illness Narrative* Milagro [...] 2023 Milagro Camacho RN Research Nurse - [place] [phone] documented in this encounterVan Wert County Hospital06-06-2023 History of Present illness Narrative* Eveline [...] daily weight at home? 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 Routed to: No Action Needed MARCELO Education Provided this Outreach: No Eveline Dean RN April 14, 2023 3:36 PM documented in this encounterVan Wert County Hospital06-06-2023 History of Present illness Narrative* Patricia Fairchild RN - 04/14/2023 10:18 AM EDT ++ documented in this encounterVan Wert County Hospital06-02-2023 Miscellaneous Notes* Telephone Encounter - Stephany [...] pill BID. Note: he is now at [facility]. [phone]. * Telephone Encounter - Iram Johnson APRN.CNP - 04/10/2023 3:14 PM EDT Find out [...] bpm. * Telephone Encounter - Iram Johnson APRN.CNP - 04/10/2023 10:20 AM EDT Let the [...] since about mid March. documented in this encounterVan Wert County Hospital06-02-2023 Miscellaneous Notes* Telephone Encounter - Stephany Abraham LPN - 04/10/2023 3:58 PM EDT Talked with daughter and explained everything. I am calling the [facility] to give orders after speaking ot Iram. [...] it was reading okay documented in this encounterVan Wert County Hospital05-31-2023 Miscellaneous Notes* Telephone Encounter - Ileana [...] questions/concerns. Ileana Sosa RN documented in this encounterVan Wert County Hospital05-17-2023 Instructions* Patient Instructions* Israel Pruitt DO [...] not anticipate. #7 the vascular lab at [facility] is aware that I will be receiving a call regarding the patient's report and then the patient will be aware of his report or results today. In the event that there is any evidence of acute deep vein thrombosis will be coordinating care with the patient's hematology academic program specialist. 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; Confirmed Blk below His by His Bundle Electrogram CVA (cerebral vascular accident) ([facility]) 08/22/2022 Diverticulosis History of anemia Hx of CABG 07/22/2021 4 vessel CABG with ORNELAS-LAD, SVG-RI, SVG-OM, and SVG-RCA in [place] Hx of colonoscopy 09/27/2015 no reported polyps per patient recollection Hypertension 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 [...] Dr Matt Flannery. PAF (paroxysmal atrial fibrillation) ([facility]) 2020 Post CABG atrial fibrillation PVC's (premature ventricular contractions) RBBB Status post ligation of left atrial appendage 07/2021 At time of CABG PAST SURGICAL HISTORY Procedure Laterality Date ANKLE RIGHT OP SURGERY Right 12/18/[address] [facility] ARTHROPLASTY TOTAL SHOULDER 11/09/2008 right ARTHROSCOPY OF JOINT UNLISTED Elbow right CABG (4) VEIN GRAFTS & ARTERIAL GRAFT(S) 07/21/[address] 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 Mds (Myelodysplastic Syndrome) ([facility]) ALLERGIES Allergen Reactions Simvastatin Other: See [...] Abs Lymph 1.00 - 4.00 k/uL 1.05 Calloway% % 7.4 Abs Calloway <0.87 k/uL 0.38 Eosin% % 2.1 Abs [...] which included preparing to see the patient, [id number] patient care, completing clinical documentation, obtaining and/or reviewing separately obtained history, performing a medically appropriate examination, counseling and educating the pat ient/family/caregiver, ordering medications, tests, or procedures, communicating with other HCPs (not separately reported), independently interpreting results (not separately reported), communicatingresults to the patient/family/caregiver, and care coordination (not separately reported). Israel Pruitt DO documented in this encounterVan Wert County Hospital05-15-2023 History of Present illness Narrative* Lupis [...] this appointment? No Reason for Outreach [facility] Payer: Payor: [employer] AARP MEDICARE / Plan: [employer] A[employer] MEDICARE HMO / Product Type: HMO / [...] seen in the Emergency Department (ED) Location: [facility] Date: 03/20/23 Reason for ED Visit: foot discolored, pain, swollen ED Intervention: not broken Based on steel die printer, the following disposition is advised: No symptoms or symptoms present, not severe. 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 Persons Present: patient Triage source: Chronic Disease Management Contacted by phone, [employer], [employer], Z[employer], [employer], other: phone History [...] in as Primary Virtualist, Secondary Virtualist, or [facility] Telehealth provider: Primary SIGNATURE: Jennifer Wilson APRN.CNP PATIENT NAME: Srini Luis DATE: March 20, 2023 documented in this encounterVan Wert County Hospital05-12-2023 History of Present illness Narrative* Eveline Dean RN - 03/20/2023 12:12 PM EDT [facility] Telephonic Outreach Provider Vinnie/GILBERTO Reports his two [...] to talk about today? Yes Based on steel die printer, the following disposition is advised: Sent to virtualist. Eveline Dean RN March 20, 2023 12:21 PM * Eveline Dean RN - 03/19/2023 2:42 PM EDT [facility] Telephonic Outreach Provider Vinnie/GILBERTO Contacted for: Routine Telephonic Outreach Contact made with patient: No, left message. 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 Lena Cruz RN * Telephone Encounter - Israel Pruitt DO - 03/18/2023 4:30 PM EDT Please provide the assisted living facility where the patient now resides near [place] with the information that is requested further records. I just recently had a comprehensive visit with the patient so that should be all up-to-date. Thanks , Israel Pruitt DO * Telephone Encounter - Marcie Key LPN - 03/18/2023 4:14 PM EDT Katelynn from [facility] states pt is wanting to move into their assisted living. 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 Junie Torres * Telephone Encounter - Baljinder Galloway DO - 03/17/2023 2:47 PM EDT Next new patient appointment with that is good for him. Baljinder Galloway [...] Rowell for CMML. Patient is moving from [facility] to [place] and would like to transfer care. Patient will continue current care until established here. 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 goal of 2.0-3.0 09/15/2022 Nocturnal hypoxemia 08/29/2022 Overview: On oxygen at night documented as of this encounter (statuses as of 03/18/2023) [facility] History of Past illness Narrative* Problem Noted Date Resolved Date senior care current use of ant icoagulants with INR [...] Follow-up examination following surgery 10/31/20 03 01/02/2015 senior care current use of ant icoagulants with INR goal of 2.0-3.0 09/15/2022 Nocturnal hypoxemia 08/29/2022 Overview: On oxygen at night documented as of this encounter (statuses as of 03/17/2023) [facility] History of Past illness Narrative* Problem Noted Date Resolved Date senior care current use of ant icoagulants with INR [...] 08/11/2005 01/02/2015 Follow-up examination following surgery 10/31/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 goal of 2.0-3.0 09/15/2022 Nocturnal hypoxemia 08/29/2022 Overview: On oxygen at night documented as of this encounter (statuses as of 03/16/2023) [facility] History of Past illness Narrative* Problem Noted Date Resolved Date 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 [...] 08/11/2005 01/02/2015 Follow-up examination following surgery 10/31/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 goal of 2.0-3.0 09/15/2022 Nocturnal hypoxemia 08/29/2022 Overview: On oxygen at night documented as of this encounter (statuses as of 03/13/2023) [facility]05-04-2023 Instructions* Patient Instructions* Israel Pruitt, DO [...] the patient transition from hematology oncology at [facility] in [place] to in [place] where the patient is moving to assisted [...] here locally until he can transition to [place] where he will be residing #12 please call if there is any difficulty with bowel function as the patient is doing well with twice daily MiraLAX and he will continue that going forward documented in this encounterVan Wert County Hospital05-04-2023 History of Present illness Narrative* Israel Pruitt DO - 03/12/2023 2:39 PM EDT Patient presents with: Follow Up HPI: Srini Luis is a 87 year [...] 2021 , 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; Confirmed Blk below His by His Bundle Electrogram CVA (cerebral vascular accident) ([facility]) 08/22/2022 Diverticulosis History of anemia Hx of CABG 07/22/2021 4 vessel CABG with ORNELAS-LAD, SVG-RI, SVG-OM, and SVG-RCA in [place] Hx of colonoscopy 09/27/2015 no reported polyps per patient recollection Hypertension 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 [...] RIGHT OP SURGERY Right 12/18/[address] [facility] ARTHROPLASTY TOTAL SHOULDER 11/09/2008 right ARTHROSCOPY OF JOINT UNLISTED Elbow right CABG (4) VEIN GRAFTS & ARTERIAL GRAFT(S) 07/21/[address] 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 MITRAL VALVE [place] mitral valve. There is mild (1+ - [...] deceleration time is 311 msec. TRICUSPID VALVE [place] tricuspid valve. There is mild (1+ - [...] EST ASSESSMENT/PLAN: 1. PAF (paroxysmal atrial fibrillation) ([facility]) - ICD9: 427.31, ICD10: I48.0 (primary diagnosis) Stable HR and on Xarelto , staying on current therapy 2. MDS (myelodysplastic syndrome) ([facility]) - ICD9: 238.75, ICD10: D46.9 Stable , [...] grade II DHD , and BNPT > 32255 , will increase Lasix to total 60 [...] which included preparing to see the patient, [id number] patient care, completing clinical documentation, obtaining and/or reviewing separately obtained history, performing a medically appropriate examination, counseling and educating the pat ient/family/caregiver, ordering medications, tests, or procedures, communicating with other HCPs (not separately reported), independently interpreting results (not separately reported), communicatingresults to the patient/family/caregiver, and care coordination (not separately reported). 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 [...] Follow-up examination following surgery 10/31/20 03 01/02/2015 senior care current use of ant icoagulants with INR goal of 2.0-3.0 09/15/2022 Nocturnal hypoxemia 08/29/2022 Overview: On oxygen at night documented as of this encounter (statuses as of 03/12/2023) [facility] History of Past illness Narrative* Problem Noted Date Resolved Date senior care current use of ant icoagulants with INR [...] Follow-up examination following surgery 10/31/20 03 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 He continues to tolerate the azavery well. No significant nausea or diarrhea. Does get some fatigue towards the end of the week as well as some insomnia. Otherwise doing well. 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; Confirmed Blk below His by His Bundle Electrogram CVA (cerebral vascular accident) ([facility]) 08/22/2022 Diverticulosis History of anemia Hx of CABG 07/22/2021 4 vessel CABG with ORNELAS-LAD, SVG-RI, SVG-OM, and SVG-RCA in [place] Hx of colonoscopy 09/27/2015 no reported polyps per patient recollection Hypertension 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 2017 when he's been off medication Nocturnal hypoxemia On oxygen at night Osteoarthritis, generalized Pacemaker 09/17/2022 Dual Pacer ([employer]) for High Grade AV Blk below His; 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 PAF (paroxysmal atrial fibrillation) ([facility]) 2020 Post CABG atrial fibrillation PVC's (premature ventricular contractions) RBBB Status post ligation of left atrial appendage 07/2021 At time of CABG PAST SURGICAL HISTORY Procedure Laterality Date ANKLE RIGHT OP SURGERY Right 12/18/[address] [facility] ARTHROPLASTY TOTAL SHOULDER 11/09/2008 right ARTHROSCOPY OF JOINT UNLISTED Elbow right CABG (4) VEIN GRAFTS & ARTERIAL GRAFT(S) 07/21/[address] [facility] COLONOSCOPY FLX DX W/COLLJ SPEC WHEN PFRMD [...] (with VAFs): SF3B1 p.H662Q (41.7%) and TET2 p.[id number]*6 (46%). 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 [...] 06/11/2009 08/14/2009 ACTINIC DAMAGE///SOLAR SKIN DAMAGE NOS 05/ 8 01/02/2015 Dermatitis due to cosmetics 04/07/200812/11 ACTINIC DAMAGE///CHR SOLAR SKIN DAMAGE NOS 04/0701/02/2015 Other seborrheic keratosis 04/07/200801/02 SOLAR LENTIGINES///DYSCHROMIA OTHER 04/07/2008 01/02/2015 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 01/02/2015 Special screening for malignant neoplasms, colon 08/11/2005 01/02/2015 Follow-up examination following surgery 10/31/20 03 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 goal of 2.0-3.0 09/15/2022 Nocturnal hypoxemia 08/29/2022 Overview: On oxygen at night documented as of this encounter (statuses as of 03/11/2023) [facility]05-03-2023 History of Past illness Narrative* Problem Noted Date Resolved Date 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 [...] Follow-up examination following surgery 10/31/20 03 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 goal of 2.0-3.0 09/15/2022 Nocturnal hypoxemia 08/29/2022 Overview: On oxygen at night documented as of this encounter (statuses as of 03/11/2023) [facility]05-01-2023 History of Past illness Narrative* Problem Noted Date Resolved Date 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 [...] Follow-up examination following surgery 10/31/20 03 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 goal of 2.0-3.0 09/15/2022 Nocturnal hypoxemia 08/29/2022 Overview: On oxygen at night documented as of this encounter (statuses as of 03/09/2023) [facility]04-24-2023 History of Past illness Narrative* Problem Noted Date Resolved Date 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 [...] Follow-up examination following surgery 10/31/20 03 01/02/2015 senior care current use of ant icoagulants with INR goal of 2.0-3.0 09/15/2022 Nocturnal hypoxemia 08/29/2022 Overview: On oxygen at night documented as of this encounter (statuses as of 03/02/2023) [facility]04-11-2023 History of Past illness Narrative* Problem Noted Date Resolved Date senior care current use of ant icoagulants with INR [...] Follow-up examination following surgery 10/31/20 03 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 goal of 2.0-3.0 09/15/2022 Nocturnal hypoxemia 08/29/2022 Overview: On oxygen at night documented as of this encounter (statuses as of 02/17/2023) [facility]04-10-2023 History of Past illness Narrative* Problem Noted Date Resolved Date senior care current use of ant icoagulants with INR [...] Follow-up examination following surgery 10/31/20 03 01/02/2015 senior care current use of ant icoagulants with INR goal of 2.0-3.0 09/15/2022 Nocturnal hypoxemia 08/29/2022 Overview: On oxygen at night documented as of this encounter (statuses as of 02/16/2023) [facility]04-07-2023 History of Past illness Narrative* Problem Noted Date Resolved Date senior care current use of ant icoagulants with INR [...] Follow-up examination following surgery 10/31/20 03 01/02/2015 senior care current use of ant icoagulants with INR goal of 2.0-3.0 09/15/2022 Nocturnal hypoxemia 08/29/2022 Overview: On oxygen at night documented as of this encounter (statuses as of 02/13/2023) [facility]04-06-2023 History of Past illness Narrative* Problem Noted Date Resolved Date 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 [...] 08/11/2005 01/02/2015 Follow-up examination following surgery 10/31/2001/02/2015 senior care current use of ant icoagulants with INR goal of 2.0-3.0 09/15/2022 Nocturnal hypoxemia 08/29/2022 Overview: On oxygen at night documented as of this encounter (statuses as of 02/12/2023) [facility]04-05-2023 History of Past illness Narrative* Problem Noted Date Resolved Date 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 [...] Follow-up examination following surgery 10/31/20 03 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 goal of 2.0-3.0 09/15/2022 Nocturnal hypoxemia 08/29/2022 Overview: On oxygen at night documented as of this encounter (statuses as of 02/11/2023) [facility]04-04-2023 History of Past illness Narrative* Problem Noted Date Resolved Date 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 [...] 08/11/2005 01/02/2015 Follow-up examination following surgery 10/31/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 goal of 2.0-3.0 09/15/2022 Nocturnal hypoxemia 08/29/2022 Overview: On oxygen at night documented as of this encounter (statuses as of 02/10/2023) [facility]04-03-2023 History of Past illness Narrative* Problem Noted Date Resolved Date senior care current use of ant icoagulants with INR [...] 08/11/2005 01/02/2015 Follow-up examination following surgery 10/31/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 goal of 2.0-3.0 09/15/2022 Nocturnal hypoxemia 08/29/2022 Overview: On oxygen at night documented as of this encounter (statuses as of 02/09/2023) [facility]03-29-2023 [facility]03-29-2023 History of Present illness Narrative* Randa Rowell DO - 02/04/2023 11:28 AM EDT HEMATOLOGY/ONCOLOGY [...] Mr. Luis presents for follow up of CM. Reports doing well with treatment. Denied N/V/F/C/SOB/CP/abd pain. 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; Confirmed Blk below His by His Bundle Electrogram CVA (cerebral vascular accident) ([facility]) 08/22/2022 Diverticulosis History of anemia Hx of CABG 07/22/2021 4 vessel CABG with ORNELAS-LAD, SVG-RI, SVG-OM, and SVG-RCA in [place] Hx of colonoscopy 09/27/2015 no reported polyps per patient recollection Hypertension 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 [...] Dr Matt Flannery. PAF (paroxysmal atrial fibrillation) ([facility]) 2020 Post CABG atrial fibrillation PVC's (premature ventricular contractions) RBBB Status post ligation of left atrial appendage 07/2021 At time of CABG PAST SURGICAL HISTORY Procedure Laterality Date ANKLE RIGHT OP SURGERY Right 12/18/[address] [facility] ARTHROPLASTY TOTAL SHOULDER 11/09/2008 right ARTHROSCOPY OF JOINT UNLISTED Elbow right CABG (4) VEIN GRAFTS & ARTERIAL GRAFT(S) 07/21/[address] [facility] COLONOSCOPY FLX DX W/COLLJ SPEC WHEN PFRMD [...] (with VAFs): SF3B1 p.H662Q (41.7%) and TET2 p.[id number]*6 (46%). The overall findings are consistent with [...] cont to monitor Randa Rowell DO Hematology/Oncology [facility] Medical Decision Making: Problems: High: Illness/injury w/ threat to life/body function Risk: High: Drug therapy requiring intensive monitoring Medical Decision Making Level: 5 - High [facility] History of Past illness Narrative* Problem Noted Date Resolved Date 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 [...] Follow-up examination following surgery 10/31/20 03 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 goal of 2.0-3.0 09/15/2022 Nocturnal hypoxemia 08/29/2022 Overview: On oxygen at night documented as of this encounter (statuses as of 02/04/2023) [facility]03-27-2023 History of Present illness Narrative* Israel Pruitt, DO - 02/02/2023 3:46 PM EDT Again [...] He has signed up with [facility]. He feels they will come when he [...] like to speak with a social work service team leader to help give you support for any [...] you up for automated weekly questionnaires through [employer]. This is an easy way for us [...] made with patient: No - Left message Hello my name is Eveline Dean RN your Sales Representative Supervisor from the [facility] I am calling today for your bi-weekly check in. I am sorry I missed your call. I will reach out to you again tomorrow. (if the third call I will reach out to you again next week) Enter next patient outreach date for the following using the Track Pt Outreach. End outreach. documented in this encounterVan [facility]03[facility] History of Past illness Narrative* Problem Noted Date Resolved Date senior care current use of ant icoagulants with INR [...] Follow-up examination following surgery 10/31/20 03 01/02/2015 senior care current use of ant icoagulants with INR goal of 2.0-3.0 09/15/2022 Nocturnal hypoxemia 08/29/2022 Overview: On oxygen at night documented as of this encounter (statuses as of 02/02/2023) [facility]03-19-2023 History of Past illness Narrative* Problem Noted Date Resolved Date 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 [...] Follow-up examination following surgery 10/31/20 03 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 goal of 2.0-3.0 09/15/2022 Nocturnal hypoxemia 08/29/2022 Overview: On oxygen at night documented as of this encounter (statuses as of 01/25/2023) [facility]03-13-2023 History of Past illness Narrative* Problem Noted Date Resolved Date senior care current use of ant icoagulants with INR [...] Follow-up examination following surgery 10/31/20 03 01/02/2015 senior care current use of ant icoagulants with INR goal of 2.0-3.0 09/15/2022 Nocturnal hypoxemia 08/29/2022 Overview: On oxygen at night documented as of this encounter (statuses as of 01/19/2023) [facility]03-10-2023 History of Past illness Narrative* Problem Noted Date Resolved Date senior care current use of ant icoagulants with INR [...] Follow-up examination following surgery 10/31/20 03 01/02/2015 senior care current use of ant icoagulants with INR goal of 2.0-3.0 09/15/2022 Nocturnal hypoxemia 08/29/2022 Overview: On oxygen at night documented as of this encounter (statuses as of 01/16/2023) [facility]03-09-2023 History of Past illness Narrative* Problem Noted Date Resolved Date senior care current use of ant icoagulants with INR [...] Follow-up examination following surgery 10/31/20 03 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 goal of 2.0-3.0 09/15/2022 Nocturnal hypoxemia 08/29/2022 Overview: On oxygen at night documented as of this encounter (statuses as of 01/15/2023) [facility]03-08-2023 [facility]03-08-2023 History of Present illness Narrative* [...] (coronary artery disease) CHB (complete heart block) ([facility]) 09/17/2022 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; Confirmed Blk below His by His Bundle Electrogram CVA (cerebral vascular accident) ([facility]) 08/22/2022 Diverticulosis History of anemia Hx of CABG 07/22/2021 4 vessel CABG with ORNELAS-LAD, SVG-RI, SVG-OM, and SVG-RCA in [place] Hx of colonoscopy 09/27/2015 no reported polyps per patient recollection Hypertension 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 [...] RIGHT OP SURGERY Right 12/18/[address] [facility] ARTHROPLASTY TOTAL SHOULDER 11/09/2008 right ARTHROSCOPY OF JOINT UNLISTED Elbow right CABG (4) VEIN GRAFTS & ARTERIAL GRAFT(S) 07/21/[address] 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 The date to complete this order is 02-07-2023 The Marcelo program is: HEART FAILURE: WHAT IT IS The patient access code to view the Marcelo program is: [id number] To view the Marcelo program go to: [email or web address] Radiology: Pathology: Addendum Cytogenetics (see separate report) revealed a normal male karyotype: 46,XY[20]. The myeloid NGS panel (see separate report) identified the following variants (with VAFs): SF3B1 p.H662Q (41.7%) and TET2 p.[id number]*6 (46%). The overall findings are consistent with [...] to 8% (140). 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 - cont to monitor Randa Rowell DO Hematology/Oncology [facility] Medical Decision Making: Problems: High: Illness/injury w/ threat to life/body function Risk: High: Drug therapy requiring intensive monitoring Medical Decision Making Level: 5 - High documented in this encounterVan [facility] History of Past illness Narrative* Problem Noted Date Resolved Date 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 [...] Follow-up examination following surgery 10/31/20 03 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 goal of 2.0-3.0 09/15/2022 Nocturnal hypoxemia 08/29/2022 Overview: On oxygen at night documented as of this encounter (statuses as of 01/14/2023) [facility]03-08-2023 History of Past illness Narrative* Problem Noted Date Resolved Date senior care current use of ant icoagulants with INR [...] Follow-up examination following surgery 10/31/20 03 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 goal of 2.0-3.0 09/15/2022 Nocturnal hypoxemia 08/29/2022 Overview: On oxygen at night documented as of this encounter (statuses as of 01/15/2023) [facility]03-07-2023 History of Present illness Narrative* Iram Johnson, TOOL ROOM SUPERVISOR.TUMOR REGISTRAR - 01/13/2023 11:00 AM EST [facility] Israel Pruitt, SUBJECTIVE: Srini Luis is [...] (coronary artery disease) CHB (complete heart block) ([facility]) 09/17/2022 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; Confirmed Blk below His by His Bundle Electrogram CVA (cerebral vascular accident) ([facility]) 08/22/2022 Diverticulosis History of anemia Hx of CABG 07/22/2021 4 vessel CABG with ORNELAS-LAD, SVG-RI, SVG-OM, and SVG-RCA in [place] Hx of colonoscopy 09/27/2015 no reported polyps per patient recollection Hypertension 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 [...] RIGHT OP SURGERY Right 12/18/[address] [facility] ARTHROPLASTY TOTAL SHOULDER 11/09/2008 right ARTHROSCOPY OF JOINT UNLISTED Elbow right CABG (4) VEIN GRAFTS & ARTERIAL GRAFT(S) 07/21/[address] [facility] COLONOSCOPY FLX DX W/COLLJ SPEC WHEN PFRMD [...] current medications. 2. 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- ICD9: 414.01, ICD10: I25.10 Four-vessel CABG in 2020. Patient on chronic medication. He is not complaining of chest pain. 3. Mixed hyperlipidemia - ICD9: 272.2, ICD10: E78.2 Patient is on atorvastatin 40 mg daily. Managed by primary care physician. 4. PAF (paroxysmal atrial fibrillation) ([facility]) - ICD9: 427.31, ICD10: I48.0 History of paroxysmal atrial fibrillation. Presently on metoprolol 12.5 mg twice daily. Maintainingsinus rhythm by pacemaker interrogation. We will plan to continue same medications and monitor for recurrent atrial fibrillation. 5. senior care current use of anticoagulants Patient is on [...] as needed. 7. CHB (complete heart block) ([facility]) - ICD9: 426.0, ICD10: I44.2 Chronic, the [...] does not get any better. Iram Johnson APRN.TUMOR REGISTRAR documented in this encounterVan [facility]03-[facility]23 History of Present illness Narrative* Israel Minor MD - 01/13/2023 10:38 AM EST Dual Pacer Report In Office Check Date: January 13, 2023 Time: 10:38 AM Devices: Lead Ra Lead [employer]-09/17/2022 - Implanted Heart Model/Cat number: ADAIR Pena [id number] Serial number: [id number] Anodic Operator: [employer] Lot number: LEFT AXILLARY VEIN Size: Right Atrial Pacing Lead Rv Lead [employer]-09/17/2022 - Implanted Heart Model/Cat number: ADAIR Pena [id number] Serial number: [id number] Anodic Operator: [employer] Lot number: LEFT CEPHALIC VEIN Size: Right Ventricular Pacing Lead Pacemaker Dual Pacer [employer]-09/17/2022 - Implanted (Left) Chest Wall Model/Cat number: EDORA [id number] -[id number] [id number] Serial number: [id number] Anodic Operator: [employer] Lot number: INITIAL DUAL PACER IMPLANT. Size: [...] 160 Additional Device Information -VS percent: 13% -COMMERCIAL SPECIALIST percent: 83% AP-VS percent: 0% AP-COMMERCIAL SPECIALIST percent: 3% Atrial: Threshold: 0.6 V @ [...] and provider appointment. View External Cardiology - Car Retarder Operator Strips [ID [id number]] documented in this encounterVan [facility]03-[facility] History of Past illness Narrative* Problem Noted Date Resolved Date senior care current use of ant icoagulants with INR [...] Follow-up examination following surgery 10/31/20 03 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 goal of 2.0-3.0 09/15/2022 Nocturnal hypoxemia 08/29/2022 Overview: On oxygen at night documented as of this encounter (statuses as of 01/13/2023) [facility]03[facility] History of Past illness Narrative* Problem Noted Date Resolved Date senior care current use of ant icoagulants with INR [...] Follow-up examination following surgery 10/31/20 03 01/02/2015 senior care current use of ant icoagulants with INR goal of 2.0-3.0 09/15/2022 Nocturnal hypoxemia 08/29/2022 Overview: On oxygen at night documented as of this encounter (statuses as of 01/13/2023) [facility]03-06-[facility] History of Past illness Narrative* Problem Noted Date Resolved Date senior care current use of ant icoagulants with INR [...] 08/11/2005 01/02/2015 Follow-up examination following surgery 10/31/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 goal of 2.0-3.0 09/15/2022 Nocturnal hypoxemia 08/29/2022 Overview: On oxygen at night documented as of this encounter (statuses as of 01/12/2023) [facility]03-02-2023 History of Present illness Narrative* Eveline Dean RN - 01/08/2023 8:56 AM EST [employer] CDM Engagement Provider Action/FYI: Would like to change to telephonic outreaches. States I feel fine Contact Made with Patient: Yes Patient identified by name and . Discussed care with patient Aylin stoddard name is Eveline Dean RN your Sales Representative Supervisor from Israel Pruitt DO office at the [facility]. I am reaching out today because [...] from today s date) documented in this encounterVan [facility]03-02-[facility]23 History of Past illness Narrative* Problem Noted Date Resolved Date 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 [...] Follow-up examination following surgery 10/31/20 03 01/02/2015 senior care current use of ant icoagulants with INR goal of 2.0-3.0 09/15/2022 Nocturnal hypoxemia 08/29/2022 Overview: On oxygen at night documented as of this encounter (statuses as of 01/08/2023) [facility] of Past illness Narrative* Problem Noted Date Resolved Date 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 [...] Follow-up examination following surgery 10/31/20 03 01/02/2015 senior care current use of ant icoagulants with INR goal of 2.0-3.0 09/15/2022 Nocturnal hypoxemia 08/29/2022 Overview: On oxygen at night documented as of this encounter (statuses as of 03/21/2023) [facility] History of Past illness Narrative* Problem Noted Date Resolved Date Myasthenia gravis 01/05/2023 03/25/2023 Overview: Last seen by neurology July 29, 2017. 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 2017 when he's been off medication 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 [...] 06/11/2009 08/14/2009 ACTINIC DAMAGE///SOLAR SKIN DAMAGE NOS 01/02/2015 Dermatitis due to cosmetics 04/07/200812/11 ACTINIC DAMAGE///CHR SOLAR SKIN DAMAGE NOS 04/0701/02/2015 Other seborrheic keratosis 04/07/200801/02 SOLAR LENTIGINES///DYSCHROMIA OTHER 04/07/2008 01/02/2015 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 01/02/2015 Special screening for malignant neoplasms, colon 08/11/2005 01/02/2015 Follow-up examination following surgery 10/31/20 03 01/02/2015 senior care current use of ant icoagulants with INR goal of 2.0-3.0 09/15/2022 Nocturnal hypoxemia 08/29/2022 Overview: On oxygen at night documented as of this encounter (statuses as of 03/25/2023) [facility] History of Past illness Narrative* Problem Noted Date Resolved Date Myasthenia gravis 01/05/2023 03/25/2023 Overview: Last seen by neurology July 29, 2017. 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 2017 when he's been off medication senior care current use of ant icoagulants with INR [...] Follow-up examination following surgery 10/31/20 03 01/02/2015 senior care current use of ant icoagulants with INR goal of 2.0-3.0 09/15/2022 Nocturnal hypoxemia 08/29/2022 Overview: On oxygen at night documented as of this encounter (statuses as of 04/08/2023) [facility] of Past illness Narrative* Problem Noted Date Resolved Date Myasthenia gravis 01/05/2023 03/25/2023 Overview: Last seen by neurology July 29, 2017. 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 2017 when he's been off medication senior care current use of ant icoagulants with INR [...] Follow-up examination following surgery 10/31/20 03 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 goal of 2.0-3.0 09/15/2022 Nocturnal hypoxemia 08/29/2022 Overview: On oxygen at night documented as of this encounter (statuses as of 04/08/2023) [facility] of Past illness Narrative* Problem Noted Date Resolved Date Myasthenia gravis 01/05/2023 03/25/2023 Overview: Last seen by neurology July 29, 2017. 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 2017 when he's been off medication senior care current use of ant icoagulants with INR [...] Follow-up examination following surgery 10/31/20 03 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 goal of 2.0-3.0 09/15/2022 Nocturnal hypoxemia 08/29/2022 Overview: On oxygen at night documented as of this encounter (statuses as of 04/09/2023) [facility] of Past illness Narrative* Problem Noted Date Resolved Date Myasthenia gravis 01/05/2023 03/25/2023 Overview: Last seen by neurology July 29, 2017. 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 2017 when he's been off medication senior care current use of ant icoagulants with INR [...] Follow-up examination following surgery 10/31/20 03 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 goal of 2.0-3.0 09/15/2022 Nocturnal hypoxemia 08/29/2022 Overview: On oxygen at night documented as of this encounter (statuses as of 04/10/2023) [facility] [facility] of Past illness Narrative* Problem Noted Date Resolved Date Myasthenia gravis 01/05/2023 03/25/2023 Overview: Last seen by neurology July 29, 2017. 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 2017 when he's been off medication 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 [...] Follow-up examination following surgery 10/31/20 03 01/02/2015 senior care current use of ant icoagulants with INR goal of 2.0-3.0 09/15/2022 Nocturnal hypoxemia 08/29/2022 Overview: On oxygen at night documented as of this encounter (statuses as of 04/10/2023) [facility]02-27-[facility]23 History of Past illness Narrative* Problem Noted Date Resolved Date Myasthenia gravis 01/05/2023 03/25/2023 Overview: Last seen by neurology July 29, 2017. 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 2017 when he's been off medication senior care current use of ant icoagulants with INR [...] Follow-up examination following surgery 10/31/20 03 01/02/2015 senior care current use of ant icoagulants with INR goal of 2.0-3.0 09/15/2022 Nocturnal hypoxemia 08/29/2022 Overview: On oxygen at night documented as of this encounter (statuses as of 04/11/2023) [facility]02-27-[facility]23 History of Past illness Narrative* Problem Noted Date Resolved Date Myasthenia gravis 01/05/2023 03/25/2023 Overview: Last seen by neurology July 29, 2017. 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 2017 when he's been off medication 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 [...] Follow-up examination following surgery 10/31/20 03 01/02/2015 senior care current use of ant icoagulants with INR goal of 2.0-3.0 09/15/2022 Nocturnal hypoxemia 08/29/2022 Overview: On oxygen at night documented as of this encounter (statuses as of 04/13/2023) [facility]02-27-2023 History of Past illness Narrative* Problem Noted Date Resolved Date Myasthenia gravis 01/05/2023 03/25/2023 Overview: Last seen by neurology July 29, 2017. 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 2017 when he's been off medication senior care current use of ant icoagulants with INR [...] 08/11/2005 01/02/2015 Follow-up examination following surgery 10/31/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 goal of 2.0-3.0 09/15/2022 Nocturnal hypoxemia 08/29/2022 Overview: On oxygen at night documented as of this encounter (statuses as of 04/14/2023) [facility]02-27-2023 History of Past illness Narrative* Problem Noted Date Resolved Date Myasthenia gravis 01/05/2023 03/25/2023 Overview: Last seen by neurology July 29, 2017. 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 2017 when he's been off medication senior care current use of ant icoagulants with INR [...] Follow-up examination following surgery 10/31/20 03 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 goal of 2.0-3.0 09/15/2022 Nocturnal hypoxemia 08/29/2022 Overview: On oxygen at night documented as of this encounter (statuses as of 04/15/2023) [facility]02-27-2023 History of Past illness Narrative* Problem Noted Date Resolved Date Myasthenia gravis 01/05/2023 03/25/2023 Overview: Last seen by neurology July 29, 2017. 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 2017 when he's been off medication 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 [...] Follow-up examination following surgery 10/31/20 03 01/02/2015 senior care current use of ant icoagulants with INR goal of 2.0-3.0 09/15/2022 Nocturnal hypoxemia 08/29/2022 Overview: On oxygen at night documented as of this encounter (statuses as of 04/15/2023) [facility]02-27-2023 History of Past illness Narrative* Problem Noted Date Resolved Date Myasthenia gravis 01/05/2023 03/25/2023 Overview: Last seen by neurology July 29, 2017. 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 2017 when he's been off medication 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 [...] 08/11/2005 01/02/2015 Follow-up examination following surgery 10/31/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 goal of 2.0-3.0 09/15/2022 Nocturnal hypoxemia 08/29/2022 Overview: On oxygen at night documented as of this encounter (statuses as of 04/16/2023) [facility]02-27-2023 History of Past illness Narrative* Problem Noted Date Resolved Date Myasthenia gravis 01/05/2023 03/25/2023 Overview: Last seen by neurology July 29, 2017. 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 2017 when he's been off medication 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 [...] Follow-up examination following surgery 10/31/20 03 01/02/2015 senior care current use of ant icoagulants with INR goal of 2.0-3.0 09/15/2022 Nocturnal hypoxemia 08/29/2022 Overview: On oxygen at night documented as of this encounter (statuses as of 04/21/2023) [facility]02-27-2023 History of Past illness Narrative* Problem Noted Date Resolved Date Myasthenia gravis 01/05/2023 03/25/2023 Overview: Last seen by neurology July 29, 2017. 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 2017 when he's been off medication 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 [...] Follow-up examination following surgery 10/31/20 03 01/02/2015 senior care current use of ant icoagulants with INR goal of 2.0-3.0 09/15/2022 Nocturnal hypoxemia 08/29/2022 Overview: On oxygen at night documented as of this encounter (statuses as of 05/05/2023) [facility]02-27-2023 History of Past illness Narrative* Problem Noted Date Resolved Date Myasthenia gravis 01/05/2023 03/25/2023 Overview: Last seen by neurology July 29, 2017. 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 2017 when he's been off medication 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 [...] Follow-up examination following surgery 10/31/20 03 01/02/2015 senior care current use of ant icoagulants with INR goal of 2.0-3.0 09/15/2022 Nocturnal hypoxemia 08/29/2022 Overview: On oxygen at night documented as of this encounter (statuses as of 05/05/2023) [facility]02-27-2023 History of Past illness Narrative* Problem Noted Date Resolved Date Myasthenia gravis 01/05/2023 03/25/2023 Overview: Last seen by neurology July 29, 2017. 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 2017 when he's been off medication senior care current use of ant icoagulants with INR [...] Follow-up examination following surgery 10/31/20 03 01/02/2015 senior care current use of ant icoagulants with INR goal of 2.0-3.0 09/15/2022 Nocturnal hypoxemia 08/29/2022 Overview: On oxygen at night documented as of this encounter (statuses as of 05/06/2023) [facility]02-27-2023 History of Past illness Narrative* Problem Noted Date Resolved Date Myasthenia gravis 01/05/2023 03/25/2023 Overview: Last seen by neurology July 29, 2017. 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 2017 when he's been off medication senior care current use of ant icoagulants with INR [...] Follow-up examination following surgery 10/31/20 03 01/02/2015 senior care current use of ant icoagulants with INR goal of 2.0-3.0 09/15/2022 Nocturnal hypoxemia 08/29/2022 Overview: On oxygen at night documented as of this encounter (statuses as of 05/06/2023) [facility]02-27-2023 History of Past illness Narrative* Problem Noted Date Resolved Date Myasthenia gravis 01/05/2023 03/25/2023 Overview: Last seen by neurology July 29, 2017. 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 2017 when he's been off medication senior care current use of ant icoagulants with INR [...] Follow-up examination following surgery 10/31/20 03 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 goal of 2.0-3.0 09/15/2022 Nocturnal hypoxemia 08/29/2022 Overview: On oxygen at night documented as of this encounter (statuses as of 05/06/2023) [facility]02-27-2023 History of Past illness Narrative* Problem Noted Date Resolved Date Myasthenia gravis 01/05/2023 03/25/2023 Overview: Last seen by neurology July 29, 2017. 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 2017 when he's been off medication 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 [...] Follow-up examination following surgery 10/31/20 03 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 goal of 2.0-3.0 09/15/2022 Nocturnal hypoxemia 08/29/2022 Overview: On oxygen at night documented as of this encounter (statuses as of 05/07/2023) [facility]02-27-2023 History of Past illness Narrative* Problem Noted Date Resolved Date Myasthenia gravis 01/05/2023 03/25/2023 Overview: Last seen by neurology July 29, 2017. 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 2017 when he's been off medication senior care current use of ant icoagulants with INR [...] Follow-up examination following surgery 10/31/20 03 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 goal of 2.0-3.0 09/15/2022 Nocturnal hypoxemia 08/29/2022 Overview: On oxygen at night documented as of this encounter (statuses as of 05/07/2023) [facility]02-27-2023 History of Past illness Narrative* Problem Noted Date Resolved Date Myasthenia gravis 01/05/2023 03/25/2023 Overview: Last seen by neurology July 29, 2017. 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 2017 when he's been off medication senior care current use of ant icoagulants with INR [...] Follow-up examination following surgery 10/31/20 03 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 goal of 2.0-3.0 09/15/2022 Nocturnal hypoxemia 08/29/2022 Overview: On oxygen at night documented as of this encounter (statuses as of 05/07/2023) [facility]02-27-2023 History of Past illness Narrative* Problem Noted Date Resolved Date Myasthenia gravis 01/05/2023 03/25/2023 Overview: Last seen by neurology July 29, 2017. 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 2017 when he's been off medication 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 [...] Follow-up examination following surgery 10/31/20 03 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 goal of 2.0-3.0 09/15/2022 Nocturnal hypoxemia 08/29/2022 Overview: On oxygen at night documented as of this encounter (statuses as of 05/08/2023) [facility]02-27-2023 History of Past illness Narrative* Problem Noted Date Resolved Date Myasthenia gravis 01/05/2023 03/25/2023 Overview: Last seen by neurology July 29, 2017. 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 2017 when he's been off medication senior care current use of ant icoagulants with INR [...] 08/11/2005 01/02/2015 Follow-up examination following surgery 10/31/2001/02/2015 senior care current use of ant icoagulants with INR goal of 2.0-3.0 09/15/2022 Nocturnal hypoxemia 08/29/2022 Overview: On oxygen at night documented as of this encounter (statuses as of 05/12/2023) [facility]02-27-2023 History of Past illness Narrative* Problem Noted Date Resolved Date Myasthenia gravis 01/05/2023 03/25/2023 Overview: Last seen by neurology July 29, 2017. 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 2017 when he's been off medication senior care current use of ant icoagulants with INR [...] Follow-up examination following surgery 10/31/20 03 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 goal of 2.0-3.0 09/15/2022 Nocturnal hypoxemia 08/29/2022 Overview: On oxygen at night documented as of this encounter (statuses as of 05/14/2023) [facility]02-27-2023 History of Past illness Narrative* Problem Noted Date Resolved Date Myasthenia gravis 01/05/2023 03/25/2023 Overview: Last seen by neurology July 29, 2017. 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 2017 when he's been off medication 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 [...] 08/11/2005 01/02/2015 Follow-up examination following surgery 10/31/2001/02/2015 senior care current use of ant icoagulants with INR goal of 2.0-3.0 09/15/2022 Nocturnal hypoxemia 08/29/2022 Overview: On oxygen at night documented as of this encounter (statuses as of 05/14/2023) [facility]02-27-2023 History of Past illness Narrative* Problem Noted Date Resolved Date Myasthenia gravis 01/05/2023 03/25/2023 Overview: Last seen by neurology July 29, 2017. 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 2017 when he's been off medication 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 [...] Follow-up examination following surgery 10/31/20 03 01/02/2015 senior care current use of ant icoagulants with INR goal of 2.0-3.0 09/15/2022 Nocturnal hypoxemia 08/29/2022 Overview: On oxygen at night documented as of this encounter (statuses as of 05/14/2023) [facility]02-27-2023 History of Past illness Narrative* Problem Noted Date Diagnosed Date Resolved Date Myasthenia gravis 01/05/2023 03/25/2023 Overview: Last seen by neurology July 29, 2017. 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 2017 when he's been off medication senior care current use of ant icoagulants with INR [...] 12/14/2012 01/02/2015 Actinic skin damage 12/14/2012 01/02/20 Solar lentigo 12/14/2012 01/02/2015 Myasthenia gravis 04/19/2012 [...] 01/02/2015 Follow-up examination following surgery 10/31/2003 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 goal of 2.0-3.0 09/15/2022 Nocturnal hypoxemia 08/29/20 22 Overview: On oxygen at night documented as of this encounter (statuses as of 05/19/2023) [facility]02-27-2023 History of Past illness Narrative* Problem Noted Date Diagnosed Date Resolved Date Myasthenia gravis 01/05/2023 03/25/2023 Overview: Last seen by neurology July 29, 2017. 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 2017 when he's been off medication senior care current use of ant icoagulants with INR [...] 01/02/2015 Follow-up examination following surgery 10/31/2003 01/02/2015 senior care current use of ant icoagulants with INR goal of 2.0-3.0 09/15/2022 Nocturnal hypoxemia 08/29/20 22 Overview: On oxygen at night documented as of this encounter (statuses as of 05/20/2023) [facility]02-27-2023 History of Past illness Narrative* Problem Noted Date Diagnosed Date Resolved Date Myasthenia gravis 01/05/2023 03/25/2023 Overview: Last seen by neurology July 29, 2017. 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 2017 when he's been off medication 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 [...] 01/02/2015 Follow-up examination following surgery 10/31/2003 01/02/2015 senior care current use of ant icoagulants with INR goal of 2.0-3.0 09/15/2022 Nocturnal hypoxemia 08/29/20 22 Overview: On oxygen at night documented as of this encounter (statuses as of 05/21/2023) [facility]02-27-2023 History of Past illness Narrative* Problem Noted Date Diagnosed Date Resolved Date Myasthenia gravis 01/05/2023 03/25/2023 Overview: Last seen by neurology July 29, 2017. 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 2017 when he's been off medication senior care current use of ant icoagulants with INR [...] 01/02/2015 Follow-up examination following surgery 10/31/2003 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 goal of 2.0-3.0 09/15/2022 Nocturnal hypoxemia 08/29/20 22 Overview: On oxygen at night documented as of this encounter (statuses as of 05/26/2023) [facility]02-27-2023 History of Past illness Narrative* Problem Noted Date Diagnosed Date Resolved Date Myasthenia gravis 01/05/2023 03/25/2023 Overview: Last seen by neurology July 29, 2017. 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 2017 when he's been off medication senior care current use of ant icoagulants with INR [...] 01/02/2015 Follow-up examination following surgery 10/31/2003 01/02/2015 senior care current use of ant icoagulants with INR goal of 2.0-3.0 09/15/2022 Nocturnal hypoxemia 08/29/20 22 Overview: On oxygen at night documented as of this encounter (statuses as of 05/27/2023) [facility]02-27[facility] History of Past illness Narrative* Problem Noted Date Diagnosed Date Resolved Date Myasthenia gravis 01/05/2023 03/25/2023 Overview: Last seen by neurology July 29, 2017. 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 2017 when he's been off medication senior care current use of ant icoagulants with INR [...] 01/02/2015 Follow-up examination following surgery 10/31/2003 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 goal of 2.0-3.0 09/15/2022 Nocturnal hypoxemia 08/29/20 22 Overview: On oxygen at night documented as of this encounter (statuses as of 06/04/2023) [facility] History of Past illness Narrative* Problem Noted Date Diagnosed Date Resolved Date Nocturnal hypoxemia 01/05/2023 06/12/20 Overview: On oxygen at night Myasthenia gravis 01/05/2023 03/25/2023 Overview: Last seen by neurology July 29, 2017. 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 Pruitt's note below [facility] please refer to that note. [...] AM EST Name: Srini Luis : 1935 [place] ID: [id number] Diagnosis: CML Primary Insurance Provider: [facility] Med Adv Plan Insurance Phone #: [phone] Policy #: [id number] Effective Date of Coverage: 11-09-22 Deductible: Ind: $ 0 Met: Ind: $ 0 Max OOP: Ind: $ 3500 OOP Met: Ind: $ 75 Pays: After Ded: 80% Pays: After OOP: 100 Co-Insurance: 20% Lifetime Maximum: unlimited Possible Foundations: Benefits verified with Radha A. Ref# [id number]. Patient has 20% coinsurance and $3425 remaining in max OOPif any assistance available. KAITLYNN Staples documented in this encounterVan [facility] NoteHNO ID: [id number] Author: Roxy Sanchez RN Service: ? Author Type: Registered Nurse Type: Progress Notes Filed: 12/15/2022 10:49 AM Note Text: Ok to keep port accessed for vidaza treatment per Dr Rowell.[facility]02-06-2023 History of Present illness Narrative* Roxy Sanchez RN - 12/15/2022 10:37 AM EST Ok to keep port accessed for vidaza treatment per Dr Rowell. documented in this encounterVan [facility] Instructions* Patient Instructions* Israel Pruitt, - 12/11/2022 5:04 PM EST 1. I [...] during his next encounter. documented in this encounterVan [facility] History of Present illness Narrative* Israel Pruitt DO - 12/11/2022 4:54 PM EST Patient presents with: Recheck: 3 months F/U HPI: Srini Luis is a 86 year old male who presents to the office today for routine OV with us today The patient is engaged to be to a lady that he is known for 3 years and lives in [place] at [place] as well. 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 [...] Dr Matt Flannery. PAF (paroxysmal atrial fibrillation) ([facility]) 2020 Post CABG atrial fibrillation PVC's (premature ventricular contractions) RBBB Status post ligation of left atrial appendage 07/2021 At time of CABG PAST SURGICAL HISTORY Procedure Laterality Date ANKLE RIGHT OP SURGERY Right 12/18/2020 Dr Elba Sherman [facility] ARTHROPLASTY TOTAL SHOULDER 11/09/2008 right ARTHROSCOPY OF JOINT UNLISTED Elbow right CABG (4) VEIN GRAFTS & ARTERIAL GRAFT(S) 07/21/[address] [facility] COLONOSCOPY FLX DX W/COLLJ SPEC WHEN PFRMD 09/01/2005 Colonoscopy COLONOSCOPY FLX DX W/COLLJ SPEC WHEN PFRMD 09/27/2015 Colonoscopy PAST SURGICAL HISTORY OF 07/21/2021 Coronary Artery Bypass Graft x 4 REMOVAL OF TONSILS,<12 Y/O S $ DUAL CHMBR PACER [id number] Left 09/17/2022 Dual Pacer (Survata) for High Grade AV Blk below His; [...] Moderate Degree (Hcc) Weakness Generalized Pacemaker Chronic heart failure with [...] Lymph 1.00 - 4.00 k/uL 1.08 1.35 Calloway% % 15.3 12.8 Abs Calloway <0.87 k/uL 1.06 (H) 0.96 (H) Eosin% [...] 1.00 - 4.00 k/uL 1.18 1.08 1.35 Calloway% % 11.6 15.3 12.8 Abs Calloway <0.87 k/uL 0.80 1.06 (H) 0.96 (H) [...] which included preparing to see the patient, [id number] patient care, completing clinical documentation, obtaining and/or reviewing separately obtained history, performing a medically appropriate examination, counseling and educating the pat ient/family/caregiver, ordering medications, tests, or procedures, communicating with other HCPs (not separately reported), independently interpreting results (not separately reported), communicatingresults to the patient/family/caregiver, and care coordination (not separately reported). .Israel Pruitt DO documented in this encounterVan [facility]01-27-[facility]23 Miscellaneous Notes* Sedation Documentation - Juanita Tineo RN - 12/05/2022 10:40 AM EST R IJ not useable per Dr. Butler. Pt agreeable to right arm. * Sedation Documentation - Juanita Tineo RN - 12/05/2022 10:28 AM EST Port instructions reviewed with patient. Written copy provided. Pt's questions answered. documented in this encounterVan Wert [facility] Hospital01-27-[facility]23 Surgical operation note* Operative Report - Manjeet Butler MD - 12/05/2022 10:04 AM EST OPERATIVE/PROCEDURE REPORT LOG ID: [id number] Surgery/Procedure Date: 12/05/2022 Incision/Procedure Start Time: 10:35 AM Incision Close/Procedure End Time: 11:00 AM Surgeon(s)/Proceduralist(s) and Lacing String Cutter(s): Surgeon(s) and Role: * Manjeet Butler [...] the vein was documented. Utilizing guidewire exchange andSeldinger technique, a long sheath was placed. A [...] None Manjeet Butler MD documented in this encounterVan Wert [facility] Hospital01-26-2023 NoteHNO ID: [id number] Author: KAITLYNN Staples Service: ? Author Type: Consumer Insights Intern Type: Progress Notes Filed: 12/04/2022 3:35 PM Note Text: Also submitted referral for [employer] meals to be delivered to his home.[facility] History of Present illness Narrative* KAITLYNN Staples - 12/04/2022 3:34 PM EST Also submitted referral for [employer] meals to be delivered to his home. documented in this encounterVan Wert [facility]01[facility] History of Present illness Narrative* KAITLYNN Staples - 12/04/2022 3:28 PM EST Images from the original note were not included. RE: Evaluation Consumer Insights Intern KAITLYNN Staples Resource Counselor (RC) met with new patient to review the Patient Navigation process. RC advised patient their role as the service team leader assisting patients in navigating the system both [...] detail. RC reviewed the role of the Accordion Tuner and the attempts she would make to assist the patient if eligible in an application for [place] based on diagnosis which may help with [...] No Finances No Insurance No Transporation No career development specialist No Having enough food No Access to medicine No Treatment decisions No Spiritual or Yazdanism Concerns No Sense of meaning or purpose No Changes in efrain or beliefs No , dying or afterlife No Conflict between beliefs and cancer treaments No Relationhip with the sacred No Ritual or dietary needs No Other Concerns none KAITLYNN Staples documented in this encounterVan Wert County Hospital01-26-2023 [facility]01-26-2023 History of Present illness Narrative* Skye Mas APRN.CNP - 12/04/2022 12:37 PM EST Chemotherapy Education Dx: STEPHANY This visit was spend discussing the side effects of Vidaza. Side effects were discussed with the patient extensively. Handouts from [employer] given for Vidaza. General risks from chemotherapy [...] especially fever. Handouts given and explained from [facility] including all of support services offered. Patient met with social work at visit. Time spent: 50 minutes >50% of the time was spent in counseling and/or coordination of care. Skye Mas APRN.MAURICIO documented in this encounterVan Wert [facility] Hospital01-18-2023 [facility]01-18-2023 Miscellaneous Notes* Telephone Encounter - Valentina Bethea - 11/26/2022 11:50 AM EST Patient left the 11/26/22 appointment and said that they will let us know if they want to do treatment or reschedule. documented in this encounterVan Wert County Hospital01-18-2023 Instructions* Patient Instructions* Randa Rowell, - 11/26/2022 11:40 AM EST Chronic myelomonocytic [...] in the blood No evidence of a [place] chromosome. This is seen in a similar [...] (CMML) or works in consultation with a clin asst oncologist who has experience treating CMML patients. [...] when you get home. 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; Confirmed Blk below His by His Bundle Electrogram CVA (cerebral vascular accident) ([facility]) 08/22/2022 Diverticulosis History of anemia Hx of CABG 07/22/2021 4 vessel CABG with ORNELAS-LAD, SVG-RI, SVG-OM, and SVG-RCA in [place] Hx of colonoscopy 09/27/2015 no reported polyps per patient recollection Hypertension Hypothyroidism 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s with INR goal of 2.0-3.0 Lumbar stenosis MRI 2018 , severe LCS L2-3 Mixed hyperlipidemia Myasthenia gravis ([facility]) Last seen by neurology July 29, 2017. [...] Dr Matt Flannery. PAF (paroxysmal atrial fibrillation) ([facility]) 2020 Post CABG atrial fibrillation PVC's (premature ventricular contractions) RBBB Status post ligation of left atrial appendage 07/2021 At time of CABG PAST SURGICAL HISTORY Procedure Laterality Date ANKLE RIGHT OP SURGERY Right 12/18/2020 Dr Elba Sherman [facility] ARTHROPLASTY TOTAL SHOULDER 11/09/2008 right ARTHROSCOPY OF JOINT UNLISTED Elbow right CABG (4) VEIN GRAFTS & ARTERIAL GRAFT(S) 07/21/[address] [facility] COLONOSCOPY FLX DX W/COLLJ SPEC WHEN PFRMD [...] 11/05/2022 1.08 1.00 - 4.00 k/uL Final Calloway% 11/05/2022 15.3 % Final Abs Calloway 11/05/2022 1.06 (A) <0.87 k/uL Final Eosin% [...] (with VAFs): SF3B1 p.H662Q (41.7%) and TET2 p.S0004Dlo*6 (46%). The overall findings are consistent with [...] about his options Randa Rowell DO Hematology/Oncology [facility] During this patient visit I have spent approximately 40 minutes out of 45 in counseling regarding treatment options, medications, and test results and coordinating care. documented in this encounterVan Wert County [facility] Miscellaneous Notes* Telephone Encounter - Yadira Walsh LPN - 11/20/2022 1:52 PM EST Patient phones requesting refills as follows: Pt is requesting that the rx be sent to [facility] (originally given to [facility] pharmacy becauseit was hospital generated) Requested Prescriptions Pending Prescriptions Disp Refills rivaroxaban (XARELTO) 20 mg tablet 90 tablet 3 Sig: Take 1 tablet by mouth daily with dinner. Resume Sep 20 2022 Please review and advise. Yadira Walsh LPN documented in this encounterVan [facility]12-29-2022 Miscellaneous Notes* Telephone Encounter - Christa Paris RN - 11/06/2022 9:17 AM EST Patient called the [facility] with question on sodium in water softener. Call returned, message left. Research states that approximately 35 mg is in an 8 ounce glass. 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 ARTHROPLASTY TOTAL SHOULDER 11/09/2008 right ARTHROSCOPY OF JOINT UNLISTED Elbow right CABG (4) VEIN GRAFTS & ARTERIAL GRAFT(S) 07/21/[address] [facility] COLONOSCOPY FLX DX W/COLLJ SPEC WHEN PFRMD [...] 10/24/2022 Final Value:Bone Marrow Pathology Report Case: [id number] Authorizing Provider: Randa Rowell DO Collected: 10/24/2022 12:31 PM Ordering Location: [facility] Received: 10/24/2022 02:31 PM INTERVENTIONAL RADIOLOGY Pathologist: [...] To order testing on this specimen for [facility] patients, please place an [facility] order for DNAand RNA Clinical Testing ([id number]). To order testing for patients outside of the [facility] system, please request DNA and RNA for Clinical Testing, order code [id number]. If additional paperwork is required for testing, please send completed forms via secure email to . Flow Cytometry Order Status 10/24/2022 See Results in chart under F case ID Final MYELOID NGS PANEL BONE MARROW 10/24/2022 Myeloid NGS Panel Bone Marrow Laboratory Accession Number: [id number] Result: Please see linked document and/or separate report for full result when available. As reviewed by Laron Jeong MD Final FLT3 ITD HN PANEL BONE MARROW 10/24/2022 Final Value:FLT3 Internal Tandem Duplication (ITD) Mutation Testing Laboratory Accession Number: [id number] FLT3 Internal Tandem Duplication (ITD) mutation: Not [...] biological and clinical implications. Blood Rev.2013;27:13-22. 2) Alphonse CARLOS, Neema M, Arthur ME, et al. Prognostic relevance of integrated genetic profiling in acute myeloid leukemia. N Engl J Med. 2012 Jan 28;366 (12):1079-89. 3) Alirioer H, Aden E, Davy D, et al. Diagnosis and mangement of AML in adults: 2017 ELN recommendations from an international expert panel. Blood [phone] (2017). Disclaimer: This test was developed and its performance characteristics determined by [facility]'s [facility] Pathology and Laboratory Medicine [place] ([facility] It has not been cleared or approved by the FDA. [facility] is regulated under CLIA as certified to perform high- complexity testing. This test is used for clinical purposes. It should not be regarded as investigational or for research. Testing and interpretation performed at [facility], [address] [place] [id number]. CLIA Number: [id number] As reviewed by Tahmina uDong, PhD, [facility] CLARITY SIGNOUT PATHOLOGIST 10/24/2022 [id number] Final WBC 10/24/2022 6.01 3.70 - 11.00 [...] 10/24/2022 1.06 1.00 - 4.00 k/uL Final Calloway% 10/24/2022 11.1 % Final Abs Calloway 10/24/2022 0.67 <0.87 k/uL Final Eosin% 10/24/2022 [...] Case Report 10/24/2022 Final Value:Flow Cytometry Case: [id number] Authorizing Provider: Randa Rowell DO Collected: 10/24/2022 12:31 PM Ordering Location: [facility] Received: 10/25/2022 09:22 AM INTERVENTIONAL RADIOLOGY Pathologist: [...] 10/07/2022 1.18 1.00 - 4.00 k/uL Final Calloway% 10/07/2022 11.6 % Final Abs Calloway 10/07/2022 0.80 <0.87 k/uL Final Eosin% 10/07/2022 [...] are possible options Randa Rowell DO Hematology/Oncology [facility] During this patient visit I have spent approximately 30 minutes out of 35 in counseling regarding test results and coordinating care. documented in this encounterVan Wert County Hospital12-28-2022 Instructions* Patient Instructions* Randa Rowell DO [...] combinations of current treatments. documented in this encounterVan Wert County Hospital12-16-2022 Surgical operation note* Brief Op Note - Jesus Manuel White MD, MD - 10/24/2022 12:47 PM EST INTERVENTIONAL RADIOLOGY POST PROCEDURE NOTE DATE: 10/24/22 NAME: Srini Luis LOG ID: [id number] Pre-Procedure Diagnosis: Macrocytic anemia. Post Procedure Diagnosis: Same. Artificial Leather Calender Operator: Dr. Jesus Manuel White Procedure: CT guided [...] any questions or concerns. documented in this encounterVan Wert County Hospital12-16-2022 History and physical note * Jesus [...] TIME: 12:17 PM PAGER: documented in this [facility]12-16-2022 Miscellaneous Notes* Sedation Documentation - Charlette Herrera RN - 10/24/2022 11:53 AM EST Home going instructions reviewed with patient, acknowledges understanding of instruction. documented in this [facility]12-15-2022 Miscellaneous Notes* Telephone Encounter - Israel Pruitt DO - 10/23/2022 6:02 PM EST Please reach out to the patient to let him know that I do not have Aldactone on the patients medication list The patients diuretic remains Lasix 20 mg twice daily I believe he is doing well on the Lasix for edema and fluid management very well Thanks Israel Pruitt DO documented in this [facility]12-15-2022 History of Present illness Narrative* Rosa Abrams, OT/L - 10/23/2022 3:34 PM EST Episode Visit Count: 2 Therapist That Will Accept/Oversee The Plan Of Care: Kelsey Abrams Start of Care Date: 10/06/22 Onset Date: [...] and that his daughter was in from [place] to take him to the same. She [...] This therapist traveled to Narinder's home in [place] where the drive started and ended. Discussed that he would drive to the grocery store in [facility] where he likes to go as one of the farther locations he will drive to. Talked about restoration while that is in [place] but a female friend who lives in [...] this report indicates the ability of the escort vehicle driver to operate a motor vehicle on [...] DISTANCE DRIVING UNLESS ACCOMPANIED BY OTHER LICENSED PHOTOCOPYING MACHINE OPERATOR TO SHARE THE DRIVING; DO NOT DRIVE [...] minutes Drivers Follow Up per 60 min (19658): 1:1 time 60 min Total time: 60 minutes TUSHAR Danielle, CDRS, CDI Certified Shank Cutter Hosting Engineer documented in this encounterVan Wert County Hospital12-08-2022 [facility]12-08-2022 Instructions* Patient Instructions* Christa Paris RN - 10/16/2022 1:59 PM EST Thank you for visiting the Heart Failure Clinic today. KEEP UP THE GREAT WORK!!! Please weigh daily and record. Read your food labels and watch for hidden sodium. Keep your sodium intake between 2883-6158 mg daily. 500-650 mg per meal. Continue to eat small, frequent meals. Try to include a form of protein with every meal. Keep your fluid intake at 48-64 ounces /day. Increase your activity as tolerated. Call the [facility] ([phone]) for AN APPOINTMENT (NO WALK-IN VISITS) if you have changes in symptoms or increase in weight of 3 lbs in one day or 5 lbs in a week. Thank you, Christa Paris RN documented in this encounterVan Wert County Hospital12-08-2022 Nurse Note* Christa Prais RN - 10/16/2022 1:59 PM EST [id number] and his daughter came to the [facility] for a follow-up visit. Patient came via [...] appetite. Does admit to rare dining out. [id number] Neal TUMOR REGISTRAR in to examine and educate patient. No orders received. [id number] was provided with emphasis on the need to weigh daily, read labels, monitorNa/fluids, monitoring for signs/symptoms, and when to call the [facility] for early intervention. Discussed importance of balancing sodium throughout the day for a goal of 500-650 mg per meal (0582-4515 mg per day) and to limit fluids to 48-64 ounces per day. Holiday eating guidelines provided at this visit. Encouraged the patient to call the [facility] with any questions/concerns. Discussed home exercise (walking, bands, arm exercises) and home safety (no area rugs, get up slowly, no rushing to answer phone/door) guidelines. Encouraged him to increase activity as tolerated. Follow up in 6 months with RN or as needed per TUMOR REGISTRAR recommendation. documented in this encounterVan Wert County Hospital12-08-2022 History of Present illness Narrative* Tara Neal APRN.TUMOR REGISTRAR - 10/16/2022 1:54 PM EST HISTORY OF PRESENT ILLNESS 86 year old male who presents with a history of coronary artery disease status post four-vessel bypass surgery about 1 year ago while on vacation in [place], paroxysmal atrial fibrillation, hypertension, hyperlipidemia, hypothyroidism, grade 2 diastolic dysfunction and an ejection fraction of 68%.He is know to Dr. iMnor. 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; Confirmed Blk below His by His Bundle Electrogram CVA (cerebral vascular accident) ([facility]) 08/22/2022 Diverticulosis History of anemia Hx of CABG 07/22/2021 4 vessel CABG with ORNELAS-LAD, SVG-RI, SVG-OM, and SVG-RCA in [place] Hx of colonoscopy 09/27/2015 no reported polyps per patient recollection Hypertension Hypothyroidism senior care current use of anticoagulants with INR goal of 2.0-3.0 Lumbar stenosis MRI 2018 , severe LCS L2-3 Mixed hyperlipidemia Myasthenia gravis ([facility]) Last seen by neurology July 29, 2017. [...] Dr Matt Flannery. PAF (paroxysmal atrial fibrillation) ([facility]) 2020 Post CABG atrial fibrillation PVC's (premature ventricular contractions) RBBB Status post ligation of left atrial appendage 07/2021 At time of CABG PAST SURGICAL HISTORY Procedure Laterality Date ANKLE RIGHT OP SURGERY Right 12/18/[address] [facility] ARTHROPLASTY TOTAL SHOULDER 11/09/2008 right ARTHROSCOPY OF JOINT UNLISTED Elbow right CABG (4) VEIN GRAFTS & ARTERIAL GRAFT(S) 07/21/[address] [facility] COLONOSCOPY FLX DX W/COLLJ SPEC WHEN PFRMD [...] 10/07/2022 Neut% 68.5 10/07/2022 Lymph% 17.1 10/07/2022 Calloway% 11.6 10/07/2022 Eosin% 3.2 09/19/2019 Baso% 1.0 10/07/2022 Abs Neut (ANC) 4.73 10/07/2022 Abs Calloway 0.80 10/07/2022 Abs Eosin 0.10 10/07/2022 Abs [...] if needed. GINA Barrett documented in this encounterVan Wert [facility] Hospital12-01-2022 [facility]12-01-2022 Miscellaneous Notes* Telephone Encounter - Valentina Bethea - 10/09/2022 11:31 AM EST Spoke with Jennifer in IR. 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 PAF (paroxysmal atrial fibrillation) ([facility]) 2020 Post CABG atrial fibrillation PVC's (premature ventricular contractions) RBBB Status post ligation of left atrial appendage 07/2021 At time of CABG PAST SURGICAL HISTORY Procedure Laterality Date ANKLE RIGHT OP SURGERY Right 12/18/[address] [facility] ARTHROPLASTY TOTAL SHOULDER 11/09/2008 right ARTHROSCOPY OF JOINT UNLISTED Elbow right CABG (4) VEIN GRAFTS & ARTERIAL GRAFT(S) 07/21/[address] [facility] COLONOSCOPY FLX DX W/COLLJ SPEC WHEN PFRMD [...] abnormally high Latest Reference Range & Units 8/1/19 07:42 07/19/19 09:13 09/19/19 08:43 11/16/19 08:30 11/28/19 09:40 04/13/20 09:07 07/12/20 08:40 08/01/20 14:38 09/25/20 09:15 11/20/20 08:18 03/22/21 08:04 03/21/22 13:33 07/06/22 03:36 08/24/22 04:39 [...] on risk stratification Randa Rowell DO Hematology/Oncology [facility] Medical Decision Making: Problems: Moderate: 1+ chronic illnesses with change Data: Unique test result(s) reviewed: 3+ Medical Decision Making Level: 4 - Moderate documented in this encounterVan Wert County Hospital12-01-2022 Instructions* Patient Instructions* Randa Rowell DO [...] combinations of current treatments. documented in this encounterVan Wert County Hospital11-28-2022 History of Present illness Narrative* Rosa Abrams, OT/L - 10/06/2022 4:40 PM EST Episode Visit Count: 1 Therapist That Will Accept/Oversee The Plan Of Care: Kelsey Abrams Start of Care Date: 10/06/22 Onset Date: [...] about 1 hour away and Liza in [place]. Both of his sons live out of state but areinvolved and supportive. He very much wants to return to driving and is hopeful he will be able to. Functional Limitations: walking in the community;heavy exertion;driving Prior Level of Function: Independent without limitations Home Environment Patient Lives With: Self/Alone (his 06/10/22) Assistance Available: Other: See Comment Comments: [facility] with emergency assist nearby and one meal [...] Level of Education: High School Preferred Language: Vincentian Right or Left Handed: Right Employment: Retired Recreation / Current Exercise: does exercise as part of home therapy Hobbies / Interests: restoration, time with family/friends Home Environment Patient Lives With: Self/Alone (his 06/10/22) Assistance Available: Other: See Comment Comments: lives in [facility] living [facility] with emergency assist nearby and one meal [...] future Driving History: 70 years while has 2020 Honda CRV; last drove the previous day when his son was visiting and supervised him driving around the complex State: [place] License/Permit #: [id number] Expires: 12/17/22 Restrictions: Corrective lenses; still has [...] AROM for L shoulder since pacemaker replacement Logistics Officer: Sufficient Right LE: Sufficient Left LE: Sufficient [...] he plans on scheduling eye exam in nearfuture as would like to get new corrective [...] Severe impairment [email or web address] Immediate Recall: WNL @ 6/6 digits; he did verbalize that he is aware of having 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 Patient will complete functional mobility task with good safety awareness during completion of functional portion of this assessment/behind the wheel. Planned Interventions, Frequency, and Duration: Current Frequency: 1 visit Duration: 1 visit Total Number of Visits Planned: 1 Patient to be see for Shank Cutter rehab evaluation PLAN FOR NEXT VISIT: completed behind the wheel portion of assessment Patient demonstrates good understanding of plan of care and treatment. The above goals and plan of care were discussed and agreed upon by patient/family. Billing: Total Treatment Time Minutes (timed/untimed) 120 minutes Evaluation - Moderate Complexity (82763) Self Care / Home Management (48094): 1:1 time: 60 minutes (4 units: 53-67 mins) Total time: 120 minutes TUSHAR Danielle, CDRS, CDI Certified Shank Cutter Hosting Engineer documented in this encounterVan Wert County Hospital11-23-2022 History of Present illness Narrative* Stephany [...] given. Stephany Abraham LPN documented in this encounterVan Wert County Hospital11-21-2022 Miscellaneous Notes* Telephone Encounter - Jayashree Farmer APRN.CNP - 09/29/2022 12:24 PM EST Noted. Jayashree Farmer APRN.MAURICIO * Telephone Encounter - Yaritza Rodriguez - 09/29/2022 11:49 AM EST [facility] called to report that the patient fell over the weekend. He did not report and injuries following the fall. documented in this encounterVan Wert County Hospital11-17-2022 Instructions* Patient Instructions* Israel Pruitt DO [...] avoid fall 3. Patient will follow-up with [facility] hematology on October 09. He will have [...] by cardiology next week. documented in this encounterVan Wert County Hospital11-17-2022 History of Present illness Narrative* Israel Pruitt DO - 09/25/2022 11:41 AM EST Patient presents with: Hospital F/U HPI: Srini Luis is a 86 year old male who presents to the office today for routine hospital follow-upwith us today. Patient was admitted to [facility] on September 15 and discharged on the [...] Minor from cardiology on Thursday prior to Thanks the next day. 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; Confirmed Blk below His by His Bundle Electrogram CVA (cerebral vascular accident) ([facility]) 08/22/2022 Diverticulosis History of anemia Hx of CABG 07/22/2021 4 vessel CABG with ORNELAS-LAD, SVG-RI, SVG-OM, and SVG-RCA in [place] Hx of colonoscopy 09/27/2015 no reported polyps per patient recollection Hypertension Hypothyroidism senior care current use of anticoagulants with INR goal of 2.0-3.0 Lumbar stenosis MRI 2018 , severe LCS L2-3 Mixed hyperlipidemia Myasthenia gravis ([facility]) Last seen by neurology July 29, 2017. [...] Dr Matt Flannery. PAF (paroxysmal atrial fibrillation) ([facility]) 2020 Post CABG atrial fibrillation PVC's (premature ventricular contractions) RBBB Status post ligation of left atrial appendage 07/2021 At time of CABG PAST SURGICAL HISTORY Procedure Laterality Date ANKLE RIGHT OP SURGERY Right 12/18/[address] [facility] ARTHROPLASTY TOTAL SHOULDER 11/09/2008 right ARTHROSCOPY OF JOINT UNLISTED Elbow right CABG (4) VEIN GRAFTS & ARTERIAL GRAFT(S) 07/21/[address] 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 Acute Ischemic Stroke ([facility]) Malnutrition of Moderate Degree ([facility]) Weakness Generalized Pacemaker ALLERGIES Allergen Reactions Simvastatin [...] 1.00 - 4.00 k/uL 1.53 0.86 (L) Calloway% % 14.4 13.2 Abs Calloway <0.87 k/uL 0.89 (H) 1.17 (H) Eosin% [...] Lymph 1.00 - 4.00 k/uL 0.86 (L) Calloway% % 13.2 Abs Calloway <0.87 k/uL 1.17 (H) Eosin% % 2.6 [...] which included preparing to see the patient, [id number] patient care, completing clinical documentation, obtaining and/or [...] reviewed Yadira Walsh LPN documented in this encounterVan Wert County Hospital11-15-2022 Miscellaneous Notes* Addendum Note - Jayashree Farmer APRN.CNP - 09/23/2022 4:41 PM ESTAddended by: JAYASHREE FARMER on: 09/23/2022 04:41 PM Modules accepted: Orders * Telephone Encounter - Jayashree Farmer APRN.CNP - 09/23/2022 4:41 PM EST Noted. Duplicates D/C. Jayashree Farmer APRN.CNP * Telephone Encounter - [...] Cruz RN * Telephone Encounter - Uriah Andrews - 09/23/2022 3:20 PM EST Called patient and informed him that there is labs that needed to be done for his appointment. Patient states he doesn't have a way to get to the office before his appointment . Please adviseif needed. * Telephone Encounter - Rosa Blue APRN.CNP - 09/23/2022 3:06 PM EST Please forward to patient's PCP. Thanks, Rosa Blue APRN.MAURICIO * Telephone Encounter - Cami Plasencia - 09/23/2022 3:01 PM EST Pt calling in wondering if he needs labs done for him appt on 09/25. Pt also wants to know that if labs are needed if hes able to get those done at his PCP's office. Please contact pt and advise. Thank you! Cami Plasencia documented in this encounterVan Wert County Hospital11-11-2022 History of Present illness Narrative* Lena Cruz RN - 09/19/2022 3:07 PM EST Patient notified. He verbalizes understanding. Lena Cruz RN * Israel Pruitt DO - 09/19/2022 2:48 PM EST Yes resume B12 Israel Pruitt DO * Lena Cruz RN - 09/19/2022 12:21 PM EST TRANSITION CARE MANAGEMENT (TCM) INITIAL CONTACT Provider Action/FYI: 86 year old male admitted to [facility] from 09/15 - 09/18/2022 for symptomatic bradycardia, needed pacer. Appointments: NEURO / Dr. Rob - 09/23/2022 PCP / Dr. Pruitt - 09/25/2022 [facility] - 10/01/2022 Heart Failure Clinic, Tara Neal, TOOL ROOM SUPERVISOR, TUMOR REGISTRAR - 10/16/2022 [facility] - Start of Care visit tomorrow. Patient [...] might be hidden SUMMARY: -Pt discharged from [facility] on 09/18/2022. -Follow up appointment on 09/25/2022. -Medication review done: Yes. -Admitted for: Symptomatic bradycardia, needed pacer CONCERNS: As above NEW MEDICATIONS: Metoprolol Tartrate 25 mg tablets, 1/2 tablet (12.5 mg) twice daily -- lower dose Xarelto 20 mg, resume taking 09/20/2022 MEDS HELD/DISCONTINUED: None BRIEF HOSPITAL COURSE: Copied / pasted from [facility] notes: PROCEDURES DURING HOSPITALIZATION: Pacer placed , [...] use of a walker at home at [facility] living at [place]. We will reach out to the patient tomorrow to have a phone encounter to make sure the patient is clear in regards to discharge med list and reconcile those meds on discharge. Lena Cruz RN documented in this encounterVan Wert County Hospital11-11-2022 Miscellaneous Notes* Telephone Encounter - Minerva Herbert RN - 09/19/2022 11:44 AM EST Phone call received from Liza Mark, patients daughter. Requested canceling and rescheduling hisnext appointment with the [facility] secondary to having follow up appointments with PCP, Cardiology and SN. Appt rescheduled for October 16, 2022. documented in this encounterVan Wert County Hospital11-11-2022 History of Present illness Narrative* Ten Weber, [facility] ED - 09/19/2022 8:47 AM EST TRANSITION CARE MANAGEMENT (TCM) PHARMACY CONTACT Provider Action/FYI: TCM Medication Reconciliation completed for patient. See medication list table below for details. ACTION REQUIRED: D/t inadvertent confusion regarding metoprolol dose change, patient received full 25mg (50mg 1/2 tablet) last night and this morning- dtr agrees to call pharmacy and get new dosage (25mg 1/2 tablet BID) from [facility] pharmacy- route to PCP to review/FYI, confirmed at time of note per pharmacy records that new dosage was picked up Initial contact with patient post discharge, spoke to patient and family member, rojas De Jesus (per pt preference- dtr manages medications),. Patient identified by name and . Summary: -Pt discharged from [facility] on 09/18/22. -Follow up appointment on 09/25 card CHF, Defer to TCM hub RN for scheduling assistance. -Medication review done: Full medication review completed -Admitted for symptomatic bradycardia, needed pacer Patient was contacted by telephone, identified for pharmacist care from discharge call list, and gave consent to manage medications related to transitional care management pursuant to the consult agreement with the [facility]. Patient Concerns: Review and discussion of [...] A prescription was sent to the pharmacy. Lalito have follow-up with us week of September [...] use of a walker at home at independent living at [place]. We will reach out to the patient [...] lower dose as of 2021 Pharmacy 08/05/22 E- [facility] [place] [address] - [address] [phone] Allergy/Contraindication: atorvastatin Reactions: Other: See Comments. Reaction type: Side Effect/Intolerance. User documented allergy severity: Medium. Drug Class Match with SIMVASTATIN (Class: ELKJDUN-LHA-ICY REDUCTASE INHIBITORS). 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 with INR goal [...] COVID-19 booster vaccine, age 12+ yr, bivalent (nodila-BIONTLobera Cigars) 07/24/2022 COVID-19 original vaccine, age 12+ yr, monovalent (nodila-BIONTECH - PURPLE TOP) 12/04/2020 12/25/2020 08/20/2021 05/19/2022 [...] Dept Phone 09/25/2022 2:30 PM NURSE CARD CHF 3 [facility] [phone] 09/25/2022 3:00 PM TARA NEAL [facility] [phone] 10/01/2022 11:30 AM DEVICE CLINIC CARD UP HEIDI GORDON (S [phone] 10/06/2022 1:30 PM RADHAROSA ROSADO [facility] N [phone] 10/09/2022 10:30 AM RANDA ROWELL [facility] [phone] Interventions Made: Patient education/Medication counseling and Adherence counseling Pharmacist Recommendations Made None Care Coordination: Pharmacy contacted to facilitate patient care ([facility] records) Time spent on patient: 45-60 minutes TEN WEBER PHARMACIST, [facility] Transitional Care Management September 19, 2022 2:42 PM documented in this encounterVan Wert County Hospital11-09-2022 History of Past illness Narrative* Problem [...] 08/11/2005 01/02/2015 Follow-up examination following surgery 10/31/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 goal of 2.0-3.0 09/15/2022 Nocturnal hypoxemia 08/29/2022 Overview: On oxygen at night documented as of this encounter (statuses as of 09/19/2022) [facility] History of Past illness Narrative* Problem [...] 08/11/2005 01/02/2015 Follow-up examination following surgery 10/31/2001/02/2015 senior care current use of ant icoagulants with INR goal of 2.0-3.0 09/15/2022 Nocturnal hypoxemia 08/29/2022 Overview: On oxygen at night documented as of this encounter (statuses as of 09/19/2022) [facility] History of Past illness Narrative* Problem [...] Follow-up examination following surgery 10/31/20 03 01/02/2015 senior care current use of ant icoagulants with INR goal of 2.0-3.0 09/15/2022 Nocturnal hypoxemia 08/29/2022 Overview: On oxygen at night documented as of this encounter (statuses as of 09/19/2022) [facility] of Past illness Narrative* Problem [...] Follow-up examination following surgery 10/31/20 03 01/02/2015 senior care current use of ant icoagulants with INR goal of 2.0-3.0 09/15/2022 Nocturnal hypoxemia 08/29/2022 Overview: On oxygen at night documented as of this encounter (statuses as of 09/23/2022) [facility] of Past illness Narrative* Problem [...] Follow-up examination following surgery 10/31/20 03 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 goal of 2.0-3.0 09/15/2022 Nocturnal hypoxemia 08/29/2022 Overview: On oxygen at night documented as of this encounter (statuses as of 09/24/2022) [facility] of Past illness Narrative* Problem [...] 08/11/2005 01/02/2015 Follow-up examination following surgery 10/31/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 goal of 2.0-3.0 09/15/2022 Nocturnal hypoxemia 08/29/2022 Overview: On oxygen at night documented as of this encounter (statuses as of 09/25/2022) [facility] of Past illness Narrative* Problem [...] Follow-up examination following surgery 10/31/20 03 01/02/2015 senior care current use of ant icoagulants with INR goal of 2.0-3.0 09/15/2022 Nocturnal hypoxemia 08/29/2022 Overview: On oxygen at night documented as of this encounter (statuses as of 09/29/2022) [facility] of Past illness Narrative* Problem [...] Follow-up examination following surgery 10/31/20 03 01/02/2015 senior care current use of ant icoagulants with INR goal of 2.0-3.0 09/15/2022 Nocturnal hypoxemia 08/29/2022 Overview: On oxygen at night documented as of this encounter (statuses as of 10/01/2022) [facility] of Past illness Narrative* Problem [...] Follow-up examination following surgery 10/31/20 03 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 goal of 2.0-3.0 09/15/2022 Nocturnal hypoxemia 08/29/2022 Overview: On oxygen at night documented as of this encounter (statuses as of 10/08/2022) [facility] of Past illness Narrative* Problem [...] Follow-up examination following surgery 10/31/20 03 01/02/2015 senior care current use of ant icoagulants with INR goal of 2.0-3.0 09/15/2022 Nocturnal hypoxemia 08/29/2022 Overview: On oxygen at night documented as of this encounter (statuses as of 10/09/2022) [facility] of Past [facility] Narrative* Problem [...] Follow-up examination following surgery 10/31/20 03 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 goal of 2.0-3.0 09/15/2022 Nocturnal hypoxemia 08/29/2022 Overview: On oxygen at night documented as of this encounter (statuses as of 10/09/2022) [facility] of Past [facility] Narrative* Problem [...] Follow-up examination following surgery 10/31/20 03 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 goal of 2.0-3.0 09/15/2022 Nocturnal hypoxemia 08/29/2022 Overview: On oxygen at night documented as of this encounter (statuses as of 10/16/2022) [facility] of Past illness Narrative* Problem [...] Follow-up examination following surgery 10/31/20 03 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 goal of 2.0-3.0 09/15/2022 Nocturnal hypoxemia 08/29/2022 Overview: On oxygen at night documented as of this encounter (statuses as of 10/23/2022) [facility] of Past illness Narrative* Problem [...] Follow-up examination following surgery 10/31/20 03 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 goal of 2.0-3.0 09/15/2022 Nocturnal hypoxemia 08/29/2022 Overview: On oxygen at night documented as of this encounter (statuses as of 10/25/2022) [facility] of Past illness Narrative* Problem [...] 08/11/2005 01/02/2015 Follow-up examination following surgery 10/31/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 goal of 2.0-3.0 09/15/2022 Nocturnal hypoxemia 08/29/2022 Overview: On oxygen at night documented as of this encounter (statuses as of 10/28/2022) [facility] of Past [facility] Narrative* Problem [...] 08/11/2005 01/02/2015 Follow-up examination following surgery 10/31/2001/02/2015 senior care current use of ant icoagulants with INR goal of 2.0-3.0 09/15/2022 Nocturnal hypoxemia 08/29/2022 Overview: On oxygen at night documented as of this encounter (statuses as of 11/11/2022) [facility] of [facility] Narrative* Problem [...] Follow-up examination following surgery 10/31/20 03 01/02/2015 senior care current use of ant icoagulants with INR goal of 2.0-3.0 09/15/2022 Nocturnal hypoxemia 08/29/2022 Overview: On oxygen at night documented as of this encounter (statuses as of 11/12/2022) [facility] of Past illness Narrative* Problem [...] Follow-up examination following surgery 10/31/20 03 01/02/2015 senior care current use of ant icoagulants with INR goal of 2.0-3.0 09/15/2022 Nocturnal hypoxemia 08/29/2022 Overview: On oxygen at night documented as of this encounter (statuses as of 11/20/2022) [facility] of Past [facility] Narrative* Problem [...] 08/11/2005 01/02/2015 Follow-up examination following surgery 10/31/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 goal of 2.0-3.0 09/15/2022 Nocturnal hypoxemia 08/29/2022 Overview: On oxygen at night documented as of this encounter (statuses as of 11/26/2022) [facility] Narrative* Problem [...] Follow-up examination following surgery 10/31/20 03 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 goal of 2.0-3.0 09/15/2022 Nocturnal hypoxemia 08/29/2022 Overview: On oxygen at night documented as of this encounter (statuses as of 11/26/2022) [facility] Narrative* Problem [...] Follow-up examination following surgery 10/31/20 03 01/02/2015 senior care current use of ant icoagulants with INR goal of 2.0-3.0 09/15/2022 Nocturnal hypoxemia 08/29/2022 Overview: On oxygen at night documented as of this encounter (statuses as of 12/04/2022) [facility] of Past [facility] Narrative* Problem [...] Follow-up examination following surgery 10/31/20 03 01/02/2015 senior care current use of ant icoagulants with INR goal of 2.0-3.0 09/15/2022 Nocturnal hypoxemia 08/29/2022 Overview: On oxygen at night documented as of this encounter (statuses as of 12/04/2022) [facility] of [facility] Narrative* Problem [...] 08/11/2005 01/02/2015 Follow-up examination following surgery 10/31/2001/02/2015 senior care current use of ant icoagulants with INR goal of 2.0-3.0 09/15/2022 Nocturnal hypoxemia 08/29/2022 Overview: On oxygen at night documented as of this encounter (statuses as of 12/06/2022) [facility] of [facility] Narrative* Problem [...] Follow-up examination following surgery 10/31/20 03 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 goal of 2.0-3.0 09/15/2022 Nocturnal hypoxemia 08/29/2022 Overview: On oxygen at night documented as of this encounter (statuses as of 12/12/2022) [facility] of Past illness Narrative* Problem [...] Follow-up examination following surgery 10/31/20 03 01/02/2015 senior care current use of ant icoagulants with INR goal of 2.0-3.0 09/15/2022 Nocturnal hypoxemia 08/29/2022 Overview: On oxygen at night documented as of this encounter (statuses as of 12/15/2022) [facility] of Past illness Narrative* Problem [...] Follow-up examination following surgery 10/31/20 03 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 goal of 2.0-3.0 09/15/2022 Nocturnal hypoxemia 08/29/2022 Overview: On oxygen at night documented as of this encounter (statuses as of 2022) [facility] of Past illness Narrative* Problem [...] Follow-up examination following surgery 10/31/20 03 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 goal of 2.0-3.0 09/15/2022 Nocturnal hypoxemia 08/29/2022 Overview: On oxygen at night documented as of this encounter (statuses as of 12/23/2022) [facility] of Past illness Narrative* Problem [...] Follow-up examination following surgery 10/31/20 03 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 documented in this encounterVan Wert County Hospital11-08-2022 Miscellaneous Notes* Telephone Encounter - Lena [...] understanding. Lena Cruz RN documented in this encounterVan Wert County Hospital11-03-2022 Instructions* Patient Instructions* Israel Pruitt DO - 09/11/2022 4:44 PM EDT 1. No change in current medication 2. Labs will be drawn next week the week of September 15 prior to the patient's hematology visit within [facility] including CBC and iron levels that [...] concern of the patient living independent at [place]. 7. Patient is up-to-date on vaccinations documented in this encounterVan Wert County Hospital11-03-2022 History of Present illness Narrative* Israel Goodson DO [place] - 09/11/2022 4:20 PM EDT Patient presents with: Transition Of Care: Rehab HPI: Srini Luis is a 86 year old male who presents to the office today for hospital follow up with laurita at [facility] for left pontine stroke Patient is here for hospital follow-up with the acute hospitalization at [facility] August 22 through August 26. 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 ARTHROPLASTY TOTAL SHOULDER 11/09/2008 right ARTHROSCOPY OF JOINT UNLISTED Elbow right CABG (4) VEIN GRAFTS & ARTERIAL GRAFT(S) 07/21/[address] 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 ([facility]) Vertebral Artery Occlusion, 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 Acute Ischemic Stroke ([facility]) Malnutrition of Moderate Degree ([facility]) ALLERGIES Allergen Reactions Simvastatin Other: See Comments [...] Lymph 1.00 - 4.00 k/uL 0.88 (L) Calloway% % 7.1 Abs Calloway <0.87 k/uL 0.77 Eosin% % 2.3 Abs [...] which included preparing to see the patient, [id number] patient care, completing clinical documentation, obtaining and/or [...] EDT Pt is here for a TCM [facility]) Medication list review Yadira Walsh LPN documented in this encounterVan Wert County Hospital11-03-2022 Miscellaneous Notes* Telephone Encounter - Mary Ann Pabon RN - 09/11/2022 12:18 PM EDT Called and left a detailed message that provider will follow OT plan of care. Mary Ann Pabon RN * Telephone Encounter - Guillermina Cummings APRN.TUMOR REGISTRAR - 09/11/2022 11:59 AM EDT Ok for plan of care * Telephone Encounter - Mary Ann Pabon RN - 09/11/2022 10:09 AM EDT Citlalli CHILDERS from [facility] calls with patient's plan of care for Occupational Therapy. Occupational therapy will see patient for 5 visits to improve function of left arm/hand and work with patient on safely completing daily activities. Please review and advise, Mary Ann Pabon RN documented in this encounterVan Wert County Hospital11-01-2022 History of Present illness Narrative* Israel Pruitt DO - 09/09/2022 5:35 PM EDT We will wait till Sep 11 when patient is due to be seen in the office for follow up ie TCM visit BP will be assessed at that time Thanks, Israel Pruitt DO * Lena Cruz RN - 09/08/2022 8:53 AM EDT TRANSITION CARE MANAGEMENT (TCM) INITIAL CONTACT Provider Action/FYI: 86 year old male admitted to [facility] Acute Rehab from 08/26- 09/05/2022 for rehab following acute ischemic stroke. Appointments: PCP / Dr. Pruitt - 09/11/2022 HEME/ONC / Dr. Rowell - 09/18/2022 NEURO / Dr. Rob - [facility]23/[facility] 09/08/2022 3:10 p.m. I am doing OK. [...] might be hidden SUMMARY: -Pt discharged from [facility] Acute Rehab on . -Follow up appointment on 09/11/2022. -Medication review done: Yes -Admitted for: Rehab following acute ischemic stroke CONCERNS: None at this time from patient. NEW MEDICATIONS: None MEDS HELD/DISCONTINUED: None BRIEF HOSPITAL COURSE: Copied / pasted from [facility] notes: Additional Provider to Provider Information: Patient [...] MD Lena Davis RN documented in this encounterVan Wert County Hospital10-28-2022 Miscellaneous Notes* Telephone Encounter - Lena Cruz RN - 09/05/2022 9:[address] Pruitt, called patient's daughter, Liza, with update that patient will be discharged to [place] today, after receiving a unit of blood. 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 Appointment with Dr. Pruitt is already scheduled on 09/11. She expresses her appreciation to PCP for his care and updates to family. Lena Cruz RN documented in this encounterVan Wert County Hospital10-26-2022 Miscellaneous Notes* Telephone Encounter - Lena [...] Please let her know. documented in this encounterVan Wert County Hospital10-14-2022 History of Present illness Narrative* Vaishali Ng MD, PhD - 08/22/2022 2:41 PM EDT TELESTROKE DOCUMENTATION Name: Srini Luis : 1935 Referring Site: [facility] Referring Provider: Last Known Well (Date/Time): 08/22/22 0930 Neurologist Evaluation (Date/Time): 08/22/22 1411 Chief Complaint: [...] a telestroke. Thank you for contacting the [facility]. I appreciate the opportunity for allowing me to participate in Srini Luis's care. Please feel free to contact me and/or the [facility] at any time if you have any further questions or need additional assistance. Vaishali Ng MD, PhD documented in this encounterVan Wert County Hospital10-06-2022 Miscellaneous Notes* Telephone Encounter - Israel [...] once daily. Micaela SILVEIRA documented in this encounterVan Wert County Hospital09-29-2022 History of Present illness Narrative* Jayashree Farmer APRN.MAURICIO - 08/07/2022 4:27 PM EDT Patient with follow up wppt with Dr. Pruitt 07/24 The following approved medication requests have been transmitted electronically. Requested Prescriptions Signed Prescriptions Disp Refills furosemide (LASIX) 20 mg tablet 180 tablet 3 Sig: Take 1 tablet by mouth twice daily. Jayashree Farmer APRN.TUMOR REGISTRAR * eTre Wang RN - 08/07/2022 2:55 PM EDT TRANSITION CARE MANAGEMENT (TCM) FOLLOW-UP NOTE Provider Action/FYI Summary: TCM F/U Patient was treated at [facility] 07/04-07/09/22 for bilateral leg swelling, CHF 30 [...] Summary: TCM F/U Patient was treated at [facility] 07/04-07/09/22 for bilateral leg swelling, CHF 30 [...] to review and assist with rx refill. Sales Representative Supervisor plan for next outreach: No further follow up needed at this time Referred to Primary Care CDM for continued monitoring of Chronic condition CHF Encouraged patient to contact office sooner for any new/worsening symptoms/concerns. Signature Tere Wang MSN, RN, [facility] Primary Care Transitional Sales Representative Supervisor [facility] [phone] August 07, 2022 documented in this encounterVan Wert County Hospital09-27-2022 Miscellaneous Notes* Telephone Encounter - Jayashree Farmer APRN.CNP - 08/05/2022 12:47 PM EDT The following approved medication requests have been transmitted electronically. Requested Prescriptions Signed Prescriptions Disp Refills atorvastatin (LIPITOR) 40 mg tablet 90 tablet 3 Sig: Take 0.5 tablets by mouth once daily. New lower dose as of Jul 24 2022 Authorizing Provider: JAYASHREE FARMER APRN.CNP * Telephone Encounter - Lena Cruz [...] patient. Lena Cruz RN documented in this encounterVan Wert County Hospital09-16-2022 History of Present illness Narrative* Tere Wang RN - 07/25/2022 1:44 PM EDT TRANSITION CARE MANAGEMENT (TCM) FOLLOW-UP NOTE Provider FYI Summary: TCM F/U Patient was treated at [facility] 07/04-07/09/22 for bilateral leg swelling, CHF Noted patient had PCP office visit F/U yesterday 07/24/22 Patient outreach deferred to another day Summary: TCM F/U Patient was treated at [facility] 07/04-07/09/22 for bilateral leg swelling, CHF Noted patient had PCP office visit F/U yesterday 07/24/22 Patient outreach deferred to another day Sales Representative Supervisor plan for next outreach: Will follow up 1 week Signature Tere Wang MSN, RN, [facility] Primary Care Transitional Sales Representative Supervisor [facility] [phone] July 25, 2022 documented in this encounterVan Wert County Hospital09-15-2022 Instructions* Patient Instructions* Israel Pruitt DO [...] to lumbar canal stenosis. documented in this encounterVan Wert County Hospital09-15-2022 History of Present illness Narrative* Israel Pruitt DO - 07/24/2022 11:17 AM EDT Patient presents with: Hospital F/U: [facility] 07-04-22 to 07-09-22-CHF HPI: Srini Luis is a 86 year old male who presents to the office today for routine OV with us today. Patients lost his dear in the last 2 months Patient lives in [place] at [place] in [place] . 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 COLONOSCOPY FLX DX W/COLLJ SPEC WHEN PFRMD [...] Osteoarthritis, Generalized Paf (Paroxysmal Atrial Fibrillation) (Hcc) Mcc Current Use of Anticoagulants With Inr Goal [...] daily. As per recommendation of the patients clin asst within the CC in [facility] aspirin, enteric coated (ASPIRIN, ENTERIC COATED) 81 [...] - 4.00 k/uL 1.19 1.10 1.35 1.31 Calloway% % 12.7 13.9 15.1 13.5 Abs Calloway <0.87 k/uL 1.03 (H) 1.12 (H) 1.13 [...] Negative Ketones, Urine Negative Negative Negative Specific [place], Ur 1.005 - 1.030 <1.005 (L) 1.008 [...] ICD9: V05.9, ICD10: Z23 See order for Pfizer Bivalent booster and Flu vaccine today I spent a total of 30 minutes on the date of the service which included preparing to see the patient, [id number] patient care, completing clinical documentation, obtaining and/or [...] Pt is here for a hospital follow up-[facility] 07-04-22 to 07-09-22 for CHF Medication reconciliation completed Yadira Walsh LPN documented in this encounterVan Wert County Hospital09-13-2022 Miscellaneous Notes* Telephone Encounter - Meron Villa RN - 07/22/2022 1:[address] 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 ARTHROPLASTY TOTAL SHOULDER 11/09/2008 right ARTHROSCOPY OF JOINT UNLISTED Elbow right CABG (4) VEIN GRAFTS & ARTERIAL GRAFT(S) 07/21/[address] [facility] COLONOSCOPY FLX DX W/COLLJ SPEC WHEN PFRMD [...] daily. As per recommendation of the patients clin asst within the CC in [facility] aspirin, enteric coated (ASPIRIN, ENTERIC COATED) 81 [...] 07/09/2022 Neut% 65.3 07/09/2022 Lymph% 18.0 07/09/2022 Calloway% 13.5 07/09/2022 Eosin% 3.2 09/19/2019 Baso% 1.0 07/09/2022 Abs Neut (ANC) 4.74 07/09/2022 Abs Calloway 0.98 07/09/2022 Abs Eosin 0.13 07/09/2022 Abs [...] 07/06/2022 HDL Cholesterol 44 07/06/2022 LDL Chol, [place] 23 07/06/2022 Cholesterol, Total 75 07/06/2022 CARDIAC [...] IN CARE I have personally performed a asdl-rm-ugni diagnostic evaluation on this patient, including anamnesis [...] spent 60 total minutes involved in the hpif-wq-yzlu care of patient Srini Luis. Greater than 50% of the time was spent counseling and/or coordinating care for the patient, the nature of which is noted above. The health conditions of this patient carry a high risk of complications, morbidity, and/or mortality. documented in this encounterVan Wert County Hospital09-08-2022 Nurse Note* Christa Paris RN - 07/17/2022 10:56 AM EDT [id number], his daughter and his son-in-law, came to the [facility] for a akw patient visit. Patient came ambulating without assistance. [...] admit to occasional salt shaker use/dining out. [id number] Gonzalez PA-C in to examine and educate patient. Orders received. Patient to lsdtomy79 mg of IV Lasix in the [facility]. No further Lasix today. Verbal and written instructions provided. Patient verbalized understanding. [id number] patient was using canned items and was still using the salt shaker. Extensive education was provided with emphasis on the need to weigh daily, read labels, monitor Na/fluids, monitoringfor signs/symptoms, and when to call the [facility] for early intervention. Discussed importance of balancing sodium throughout the day for a goal of 500-650 mg per meal (1122-4718 mg per day) and to limit fluids to 48-64 ounces per day. Encouraged the patient to call the H[facility] with any questions/concerns. Discussed home exercise (walking, [...] (time): 1150 Complications: no documented in this encounterVan Wert County Hospital09-08-2022 Instructions* Patient Instructions* Christa Paris RN - 07/17/2022 10:55 AM EDT Thank you for visiting the [facility] today. YOU RECEIVED 20 MG OF IV FUROSEMIDE (LASIX) IN THE [facility]. NO FURTHER FUROSEMIDE (LASIX) TODAY (07/17/22). ON 07/18/22, RETURN TO FUROSEMIDE (LASIX) 20 MG TWICE A DAY. Please weigh daily and record. Read your food labels and watch for hidden sodium. Keep your sodium intake between 5497-7476 mg daily. 500-650 mg per meal. Continue to eat small, frequent meals. Try to include a form of protein with every meal. Keep your fluid intake at 48-64 ounces /day. Increase your activity as tolerated. Call the [facility] ([phone]) for AN APPOINTMENT (NO WALK-IN VISITS) if you have changes in symptoms or increase in weight of 3 lbs in one day or 5 lbs in a week. Thank you, Christa Paris RNTWICE A DAY documented in this encounterVan Wert County Hospital09-02-2022 Miscellaneous Notes* Telephone Encounter - Roselia [...] Therapist), calls stating patient was discharged from [facility] yesterday following treatment for CHF exacerbation. On [...] had been ordered for patient. Advised this personal lines underwriter or [facility] Nurse will be reaching out to patient today or tomorrow. She verbalizes understanding. Lena Cruz RN documented in this encounterVan Wert County Hospital09-01-2022 Miscellaneous Notes* Telephone Encounter - Yenny Montano - 07/10/2022 1:46 PM EDT The patient was discharged from [facility] 07-09-22 with an order to schedule with the [facility] Failure Clinic. The Clinic reached out to the patient. Appointment scheduled 07-17-22. Yenny Montano documented in this encounterVan Wert County Hospital09-01-2022 History of Present illness Narrative* Lupis Servin MA - 07/10/2022 12:35 PM EDT POPULATION HEALTH NAVIGATION OUTREACH Action/July 10, 2022 1st attempt Attempted to reach patient to assist with scheduling his [facility] follow up. Left message on voicemail for him to return call for scheduling assistance. My chart also sent. Patient discharged on 07.09.2022 TCM eligible until 07.23.2022 Pt identified by name and : NO Outreach Outcome/Action Unable to reach patient: Left message MyChart message sent Did you use a PCP flex slot to schedule this appointment? N/A Reason for Outreach [facility] Payer: Payor: [facility] MEDICARE / Plan: [facility] MEDICARE HMO / Product Type: HMO / [...] TCM Home Visit Referral Source of Stratification: [facility] Admission Status: Discharged Readmission Risk Score: 22 BECKY Score: 15 Program referral criteria met: Does not meet referral criteria Patient does not qualify for High Risk TCM Home Visit program due to: Does not meet referral criteria Patient does not quality for High Risk TCM Home Visit Program due to: Does not meet referral criteria Preferred contact number: [phone] Is patient staying somewhere other than the [...] TCM Eligible through 07/23/22 will forward to program scheduler SUMMARY: Pt discharged from [facility] on 07/09/22. Admitted for: CHF Contact made with patient: Yes Hi my name is Telma Thorpe RN and I am calling from the [facility] on behalf of your PCP, Israel [...] like to speak with a social work service team leader to help give you support for any [...] I will send your request to a program scheduler who will contact and assist you with that appointment. This will give you an opportunity to ask any questions or address any concerns youmay have with your PCP. Inform the patient that if they have any questions or concerns prior to that appointment, to call their PCP's office right away. ACTION TAKEN: Patient desires an appointment - Routed to [facility] [[phone]] for schedulingtelehealth visit (telephonic, virtual visit, or [...] the way if possible). documented in this encounterVan Wert County Hospital08-31-2022 NoteHNO ID: [id number] Author: Bebo Cuevas RN Service: Nursing Author Type: Registered Nurse Type: Nursing Progress Note Filed: 07/09/2022 2:27 PM Note Text: Discharge instructions given to pt, family at bedside and will transport home.[facility]08-31-2022 Miscellaneous Notes* Telephone Encounter - Micaela SILVEIRA - 07/09/2022 4:24 PM EDT Advised Santana of the message below, verbalized understanding. Micaela SILVEIRA * Telephone Encounter - Guillermina Cummings APRN.MAURICIO - 07/09/2022 4:18 PM EDT Ok for HH orders * Telephone Encounter - Almita Hernandez LPN - 07/09/2022 12:28 PM EDT Santana from [facility] calling to state pt will be discharging [facility] todayfor CHF exacerbation. Santana requesting VO for home care to include mcc, OT & PT. Pt will start this tomorrow if it is ok'd by pcp today. Almita Hernandez LPN documented in this encounterVan Wert County Hospital08-31-2022 [facility]08-30-2022 [facility]08-29-2022 [facility]08[facility]28-2022 [facility]08-27-2022 [facility]08-26-2022 History of Past illness Narrative* [...] of this encounter (statuses as of 09/03/2022) [facility]08-26-2022 History of Past illness Narrative* Problem [...] 08/11/2005 01/02/2015 Follow-up examination following surgery 10/31/2001/02/2015 Nocturnal hypoxemia 08/29/2022 Overview: On oxygen at night documented as of this encounter (statuses as of 09/05/2022) [facility]08-26-2022 History of Past illness Narrative* Problem [...] of this encounter (statuses as of 09/09/2022) [facility]08-26-[facility] History of Past illness Narrative* Problem [...] of this encounter (statuses as of 09/10/2022) [facility]08-[facility] History of Past illness Narrative* Problem [...] of this encounter (statuses as of 09/11/2022) [facility]08-[facility] History of Past illness Narrative* Problem [...] of this encounter (statuses as of 09/11/2022) [facility]08-26-[facility] History of Past illness Narrative* Problem [...] Follow-up examination following surgery 10/31/20 03 01/02/2015 senior care current use of ant icoagulants with INR goal of 2.0-3.0 09/15/2022 Nocturnal hypoxemia 08/29/2022 Overview: On oxygen at night documented as of this encounter (statuses as of 09/17/2022) [facility]08-26-2022 Miscellaneous Notes* Telephone Encounter - Yadira Walsh LPN - 07/04/2022 1:27 PM EDT Pt called back and said that the swelling in his groin/scrotum started 2 days ago Per Hermelinda-pt advised to go to ED (pt is going to go [facility]) Yadira Walsh LPN * Telephone Encounter - [...] ER. Jayashree Farmer APRN.CNP documented in this encounterVan Wert County Hospital08-16-2022 Miscellaneous Notes* Telephone Encounter - Jackelin Lopez Ma - 06/24/2022 1:57 PM EDT Received cardiac clearance letter back from Cardiology, Dr. Nunn. Patient has cardiac clearance and is approved to hold Xarelto for 48 hours and asa 81 for 2 days prior to injection. SpreadShout message sent to notify patient of above. [...] Will generate letter and fax to patient's cage shift manager, Dr. Nunn. Patient will also need the ok to hold ASA 81 and Xarelto prior to procedure. Pre-procedure Instructions reviewed over telephone and a list of instructions were sent via SpreadShout. Patient verbalized understanding with no additional questions or concerns at this time. * Telephone Encounter - Jackelin Lopez Ma - 06/13/2022 4:18 PM EDT Received referral from Laron Fortune PA-C to schedule Lumbar MBB; Bilateral; Level: L4-S1 with Dr. Baljinder Trevizo. Will reach out to schedule within 5 business days. Patient added to procedure scheduling list. 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 [...] OP SURGERY Right 12/18/2020 Dr Elba Sherman [facility] ARTHROPLASTY TOTAL SHOULDER 11/09/2008 right ARTHROSCOPY OF JOINT UNLISTED Elbow right CABG (4) VEIN GRAFTS & ARTERIAL GRAFT(S) 07/21/[address] [facility] COLONOSCOPY FLX DX W/COLLJ SPEC WHEN PFRMD [...] by mouth daily at bedtime. New as May 29 2022 atorvastatin (LIPITOR) 40 mg tablet Take 1 tablet by mouth once daily. ferrous sulfate 325 mg (65 mg iron) tablet Take 1 tablet by mouth three times daily with meals. Newdose as Mar 18 2022 metoprolol tartrate, short acting, [...] daily. As per recommendation of the patients clin asst within the CC in [facility] aspirin, enteric coated (ECOTRIN LOW STRENGTH) 81 [...] current medications. 2. 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- ICD9: 414.01, ICD10: [...] and monitor for recurrent atrial fibrillation. 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 Iram Johnson APRN.TUMOR REGISTRAR documented in this encounterVan Wert County Hospital07-29-2022 Miscellaneous Notes* Telephone Encounter - Mary Ann Garcia RN - 06/06/2022 3:17 PM EDT MyChart message has not yet been read. Call to patient to explain that if injections are desired, patient does need to be seen in the office by Laron Fortune PA-C. Transferred to [facility] to schedule. Mary Ann Garcia RN June 06, 2022 3:18 PM documented in this encounterVan Wert County Hospital07-27-2022 Miscellaneous Notes* Telephone Encounter - Israel [...] , Israel Pruitt DO documented in this encounterVan Wert County Hospital07-27-2022 History of Present illness Narrative* Janet Purdy, RT(R) - 06/04/2022 3:45 PM EDTSummary: XRAY Radiology [...] 04, 2022 3:52 PM documented in this encounterVan Wert County Hospital07-25-2022 Miscellaneous Notes* Telephone Encounter - Israel [...] hospital from over the weekend coming from [place] after being discharged there on Thursday The hospitalist physicians let me know that Marcie came in for chest pain. Stress test was normal Chest CT was negative for pulmonary emboli The obvious recommendation would be for the patient to discharge back to [place] but we have had difficulties with discharge [...] tomorrow Israel Pruitt DO documented in this encounterVan Wert County Hospital07-21-2022 Instructions* Patient Instructions* Israel Pruitt DO [...] week for 4 to 6 weeks at [place] to improve gait to reduce the risk [...] stenosis with neurogenic claudication documented in this encounterVan Wert County Hospital07-21-2022 History of Present illness Narrative* Israel [...] back pain , saw Dr Fortune in [place] on May 08 . Recommended Neurontin for [...] reported polyps per patient recollection Hypertension Hypothyroidism senior care current use of anticoagulants with INR goal [...] OP SURGERY Right 12/18/2020 Dr Elba Sherman [facility] ARTHROPLASTY TOTAL SHOULDER 11/09/2008 right ARTHROSCOPY OF JOINT UNLISTED Elbow right CABG (4) VEIN GRAFTS & ARTERIAL GRAFT(S) 07/21/[address] [facility] COLONOSCOPY FLX DX W/COLLJ SPEC WHEN PFRMD [...] Osteoarthritis, Generalized Paf (Paroxysmal Atrial Fibrillation) (Hcc) Mcc Current Use of Anticoagulants With Inr Goal [...] daily. As per recommendation of the patients clin asst within the CC in [facility] aspirin, enteric coated (ECOTRIN LOW STRENGTH) 81 [...] which included preparing to see the patient, [id number] patient care, completing clinical documentation, obtaining and/or [...] reviewed Yadira Walsh LPN documented in this encounterVan Wert County Hospital07-18-2022 Miscellaneous Notes* Telephone Encounter - Israel [...] advise. Lena Cruz RN documented in this encounterVan Wert County Hospital07-08-2022 Miscellaneous Notes* Telephone Encounter - Jayashree Farmer APRN.CNP - 05/16/2022 5:09 PM EDT Notified patient he is up to date on vaccines. Jayashree Farmer APRN.CNP documented in this encounterVan Wert County Hospital06-30-2022 Instructions* Patient Instructions* Laron Fortune PA-C [...] hazy, disoriented, or confused. documented in this encounterVan Wert County Hospital06-30-2022 History of Present illness Narrative* Laron Fortune PA-C - 05/08/2022 1:06 PM EDT Images from the original note were not included. Laron Fortune PA-C [facility] [address] [place], [place] [id number] Dear Israel Pruitt DO, Srini Luis is a pleasant 86 year old individual who comes in to the office on 05/08/2022 for follow-up regarding their Lumbar spine. A friend accompanies the patient today. Subjective: Compared to the last visit, symptoms have been the same. Mr. Luis the same has LBP with some thigh [...] daily. As per recommendation of the patients clin asst within the in [facility] aspirin, enteric coated (ECOTRIN LOW STRENGTH) 81 [...] today with this patient visit. This includes ronw-kj-xwbd time, review of chart records regarding conservative care history, spine- pertinent imaging, and communication/care coordination with referring provider, problem-specific history-taking and counseling/education regarding treatment options. This document has been created with the use of voice recognition technology. It may contain inaccuracies: (e.g. misspellings, inaccurate syntax or word sense) that have escaped review. Amanda Soares documented in this encounterVan Wert County Hospital06-09-2022 Miscellaneous Notes* Telephone Encounter - Jayashree Farmer APRN.TUMOR REGISTRAR - 04/17/2022 12:13 PM EDT The following approved medication requests have been transmitted electronically. Pending Prescriptions Disp Refills ATORVASTATIN 40 MG TABLET 90 tablet 3 Sig: Take 1 tablet by mouth once daily. MARY: No Jayashree Farmer APRN.MAURICIO * Telephone Encounter - [...] patient. Lena Cruz RN documented in this encounterVan Wert County Hospital06-03-2022 History of Present illness Narrative* Eyal Rodrigues PT - 04/11/2022 10:16 AM EDT Episode [...] 40 Eyal Rodrigues PT documented in this encounterVan Wert County Hospital05-27-2022 History of Present illness Narrative* Eyal [...] 40 Eyal Rodrigues PT documented in this encounterVan Wert County Hospital05-25-2022 Miscellaneous Notes* Telephone Encounter - Lena [...] , Israel Pruitt DO documented in this encounterVan Wert County Hospital05-20-2022 History of Present illness Narrative* Eyal [...] 40 Eyal Rodrigues PT documented in this encounterVan Wert County Hospital05-16-2022 Miscellaneous Notes* Telephone Encounter - Micaela SILVEIRA - 03/24/2022 3:14 PM EDT Patient informed of the message below, verbalized understanding. Micaela SILVEIRA * Telephone Encounter - Guillermina Cummings APRN.MAURICIO - 03/24/2022 12:22 PM EDT Please let Narinder know that his iron levels, and B12 are in a good range. Seems he just increased the iron to 3 x per day Let's have the Blood count, and iron levels recheck again in 1 month He can get that here documented in this encounterVan Wert County Hospital05-13-2022 History of Present illness Narrative* Guillermina Cummings APRN.MAURICIO - 03/21/2022 1:39 PM EDT Chief Reason [...] 2019 , severe LCS L2-3 Osteoarthritis, Generalized Mcc Current Use of Anticoagulants With Inr Goal of 2.0-3.0 Nocturnal Hypoxemia Comment: On oxygen at night Pvc's (Premature Ventricular Contractions) Hx of Cabg - 07/10/2021 Comment: 4 vessel CABG Status Post Ligation of Left Atrial Appendage - 07/10/2021 Comment: At time of CABG Paf (Paroxysmal Atrial Fibrillation) ([facility]) - 11/09/2020 Comment: Post CABG atrial fibrillation B12 Deficiency - 07/11/2020 Vitamin D Deficiency - 07/11/2020 Macrocytosis - 07/11/2020 Venous Stasis of Both Lower Extremities - 07/11/2020 Hx of Colonoscopy - 09/27/2015 Comment: no reported polyps per patient recollection S/P Shoulder Replacement - 02/08/2015 Myasthenia Gravis ([facility]) - 04/19/2012 Essential Hypertension, Benign - 01/12/2012 Back Pain - 01/09/2012 Insomnia - 08/13/2010 Erectile Dysfunction - 08/13/2010 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 shoulder Generalized Osteoarthrosis, Unspecified Site - 06/05/2006 Comment: RALF. IVIS Mixed Hyperlipidemia - 07/04/2005 Hypothyroidism - 07/04/2005 [...] OP SURGERY Right 12/18/2020 Dr Elba Sherman [facility] ARTHROPLASTY TOTAL SHOULDER 11/09/2008 right ARTHROSCOPY OF JOINT UNLISTED Elbow right CABG (4) VEIN GRAFTS & ARTERIAL GRAFT(S) 07/21/[address] [facility] COLONOSCOPY FLX DX W/COLLJ SPEC WHEN PFRMD [...] daily. As per recommendation of the patients clin asst within the CC in [facility] aspirin, enteric coated (ECOTRIN LOW STRENGTH) 81 [...] ICD10: I10 - fair control Guillermina Cummings APRN.TUMOR REGISTRAR I spent a total of 10 minutes on the date of the service which included preparing to see the patient, [id number] patient care, completing clinical documentation, obtaining and/or reviewing separately obtained history and performing a medically appropriate examination. Follow Up Plans: Pending labs, follow up arranged with pcp documented in this encounterVan Wert County Hospital05-13-2022 History of Present illness Narrative* Sanket [...] Care: created on 03/21/22 through 05/20/22 1. [place] in home exercise program. 2. Patient will [...] Planned: 8 Planned Treatment Interventions: Therapeutic exercise (63665);Neuromuscular re- education (92927);Manual therapy (56943);Therapeutic activities (51402);Self- intermediate management (27151);Patient/Family/Caregiver Education;Functional training;General Conditioning PLAN FOR NEXT VISIT: [...] low back pain. 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 ARTHROPLASTY TOTAL SHOULDER 11/09/2008 right ARTHROSCOPY OF JOINT UNLISTED Elbow right CABG (4) VEIN GRAFTS & ARTERIAL GRAFT(S) 07/21/[address] 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 As per recommendation of the patients clin asst within the [facility] in [facility] aspirin, enteric coated (ECOTRIN LOW STRENGTH) 81 [...] controlled , has BP taken at local [facility] in the last 2 weeks , [...] reviewed Yadira Walsh LPN documented in [facility] History of Present illness Narrative* Guillermina Cummings APRN.MAURICIO - 02/26/2022 3:17 PM EDT Chief Reason [...] and was seen by a neurosurgeon at [facility] I was able to see [...] 2019 , severe LCS L2-3 Osteoarthritis, Generalized Mcc Current Use of Anticoagulants With Inr Goal of 2.0-3.0 Nocturnal Hypoxemia Comment: On oxygen at night Pvc's (Premature Ventricular Contractions) Hx of Cabg - 07/10/2021 Comment: 4 vessel CABG Status Post Ligation of Left Atrial Appendage - 07/10/2021 Comment: At time of CABG Paf (Paroxysmal Atrial Fibrillation) ([facility]) - 11/09/2020 Comment: Post CABG atrial fibrillation B12 Deficiency - 07/11/2020 Vitamin D Deficiency - 07/11/2020 Macrocytosis - 07/11/2020 Venous Stasis of Both Lower Extremities - 07/11/2020 Hx of Colonoscopy - 09/27/2015 Comment: no reported polyps per patient recollection S/P Shoulder Replacement - 02/08/2015 Myasthenia Gravis ([facility]) - 04/19/2012 Essential Hypertension, Benign - 01/12/2012 Back Pain - 01/09/2012 Insomnia - 08/13/2010 Erectile Dysfunction - 08/13/2010 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 shoulder Generalized Osteoarthrosis, Unspecified Site - 06/05/2006 Comment: RALF. IVIS Mixed Hyperlipidemia - 07/04/2005 Hypothyroidism - 07/04/2005 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 - 09/21/2003 ROS: See HPI. Severe low back with ambulation, alleviated with sitting. Denies chest pains. States sob, that seems to occur with walking, but in the setting of severe back pains. PAST SURGICAL HISTORY Procedure Laterality Date ANKLE RIGHT OP SURGERY Right 12/18/[address] [facility] ARTHROPLASTY TOTAL SHOULDER 11/09/2008 right ARTHROSCOPY OF JOINT UNLISTED Elbow right CABG (4) VEIN GRAFTS & ARTERIAL GRAFT(S) 07/21/[address] [facility] COLONOSCOPY FLX DX W/COLLJ SPEC WHEN PFRMD [...] daily. As per recommendation of the patients clin asst within the CC in [facility] aspirin, enteric coated (ECOTRIN LOW STRENGTH) 81 [...] 724.03, ICD10: M48.062 As above. Guillermina Cummings APRN.MAURICIO I spent a total of 25 minutes on the date of the service which included preparing to see the patient, [id number] patient care, completing clinical documentation, obtaining and/or reviewing separately obtained history and counseling and educating the patient/family/caregiver. Follow Up Plans: Pending his need for consultations arranged. documented in this encounterVan [facility]04-14-[facility]22 Miscellaneous Notes* Telephone Encounter - Yadira Walsh LPN - 02/20/2022 5:48 PM EDT Pt notified that a new RX was sent on 01-20-22 to [facility]\ will call and get that sent Yadira Walsh LPN documented in this encounterVan [facility]04-14-[facility]22 Miscellaneous Notes* Telephone Encounter - Micaela SILVEIRA - 02/20/2022 5:10 PM EDT Error documented in this [facility]04-11-2022 Miscellaneous Notes* Telephone Encounter - Israel Pruitt DO - 02/17/2022 11:53 AM EDT The following [...] MARY: Yes Please review and advise. Micaela Rizvi JORDANA documented in this [facility]04-04-2022 Miscellaneous Notes* Telephone Encounter - Guillermina [...] Cummings APRN.CNP * Telephone Encounter - Micaela Rizvi JORDANA - 02/10/2022 8:26 AM EDT Pending Prescriptions Disp Refills FERROUS SULFATE 325 MG (65 MG IRON) TABLET 60 tablet 3 Sig: Take 1 tablet by mouth twice daily with meals. Do not take within 2 hours of Coumadin or Synthroid. MARY: No Micaela SILVEIRA documented in this encounterVan [facility]04-04-2022 Miscellaneous Notes* Telephone Encounter - Pavan Bell - 02/10/2022 8:48 AM EDT Spoke with patient he stated he will call back once he figures out if he needs an appointment for paperwork from [place]. documented in this encounterVan [facility] History of Past illness Narrative* Problem [...] of this encounter (statuses as of 02/10/2022) [facility] Narrative* Problem [...] of this encounter (statuses as of 02/10/2022) [facility] Narrative* Problem [...] of this encounter (statuses as of 02/17/2022) [facility] Narrative* Problem [...] of this encounter (statuses as of 02/20/2022) [facility] Narrative* Problem [...] of this encounter (statuses as of 02/20/2022) [facility] Narrative* Problem [...] of this encounter (statuses as of 02/27/2022) [place] [id number] History of Past illness Narrative* Problem Noted Date Resolved Date Xerosis cutis 12/14/2012 01/02/2015 Pruritus 12/14/2012 01/02/2015 Actinic skin damage 12/14/2012 01/02/2015 Solar lentigo 12/14/2012 01/02/2015 Viral warts, unspecified 09/29/2010 015 Irritated//Inflamed Seborrheic Keratosis 010 01/02/2015 Follow-up examination, following unspecified dheeraj daine 06/11/2009 08/14/2009 ACTINIC DAMAGE///SOLAR SKIN DAMAGE NOS 8 01/02/2015 Dermatitis due to cosmetics 04/07/200812/11 ACTINIC DAMAGE///CHR SOLAR SKIN DAMAGE NOS 04/0701/02/2015 Other seborrheic keratosis 04/07/200801/02 SOLAR LENTIGINES///DYSCHROMIA OTHER 04/07/2008 01/02/2015 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 01/02/2015 Special screening for malignant neoplasms, colon 08/11/2005 01/02/2015 Follow-up examination following surgery 10/31/20 03 01/02/2015 documented as of this encounter (statuses as of 03/13/2022) [facility] Narrative* Problem [...] of this encounter (statuses as of 03/18/2022) [facility] Narrative* Problem [...] of this encounter (statuses as of 03/21/2022) [facility] Narrative* Problem [...] of this encounter (statuses as of 03/21/2022) [facility] Narrative* Problem [...] of this encounter (statuses as of 03/24/2022) [facility] Narrative* Problem [...] of this encounter (statuses as of 03/28/2022) [facility] Narrative* Problem [...] of this encounter (statuses as of 04/02/2022) [facility] N[facility]* Problem [...] of this encounter (statuses as of 04/04/2022) [facility]* Problem [...] of this encounter (statuses as of 04/11/2022) [facility]* Problem [...] of this encounter (statuses as of 04/17/2022) [facility]* Problem [...] of this encounter (statuses as of 05/08/2022) [facility]* Problem [...] of this encounter (statuses as of 05/16/2022) [facility]* Problem [...] of this encounter (statuses as of 05/26/2022) [facility]* Problem [...] of this encounter (statuses as of 05/27/2022) [facility]* Problem [...] of this encounter (statuses as of 05/29/2022) [facility]* Problem [...] of this encounter (statuses as of 05/30/2022) [facility]* Problem [...] of this encounter (statuses as of 06/02/2022) [facility]* Problem [...] of this encounter (statuses as of 06/04/2022) [facility]* Problem [...] of this encounter (statuses as of 06/05/2022) [facility]* Problem [...] of this encounter (statuses as of 06/06/2022) [facility]* Problem [...] of this encounter (statuses as of 06/10/2022) [facility]* Problem [...] of this encounter (statuses as of 06/24/2022) [facility]* Problem [...] of this encounter (statuses as of 07/03/2022) [facility]* Problem [...] of this encounter (statuses as of 07/04/2022) [facility]* Problem [...] of this encounter (statuses as of 07/09/2022) [facility]* Problem [...] of this encounter (statuses as of 07/10/2022) [facility]* Problem [...] of this encounter (statuses as of 07/11/2022) [facility]* Problem [...] of this encounter (statuses as of 07/17/2022) [facility]* Problem [...] of this encounter (statuses as of 07/22/2022) [facility]* Problem [...] of this encounter (statuses as of 07/24/2022) [facility]* Problem [...] of this encounter (statuses as of 07/25/2022) [facility]* Problem [...] of this encounter (statuses as of 08/05/2022) [facility]* Problem [...] of this encounter (statuses as of 08/07/2022) [facility]* Problem [...] of this encounter (statuses as of 08/14/2022) [facility]* Problem [...] of this encounter (statuses as of 08/22/2022) [facility] Author Homer Marsh [facility] May 18, 2023 3:08pm Note Date/Time May 18, 2023 3:05 pm [facility] Medical Records Department [address] [place] [address] Consultation - Infectious Dx 05/18/23 1503 MR#: [id number] Acct: [id number] Name: SRINI LUIS Rep #:[id number] : 1935 87 From: Homer pablo MD PCP: Hamzah Pruitt Status:ADM IN Location: [place] [address] Assessment & Plan Assessment/Plan (1) Bacteremia due [...] performed and neg except as noted above. [facility] Medical History (Updated 05/18/23 @ 15:07 [...] 80.3 H, Lymph % (Auto) 11.3 L, C[place] % (Auto) 4.2, Eos % (Auto) 1.9, [...] vent pacing Rate: 60 Ectopy: None 05/18/23 1508 <Electronically signed by Homer Marsh MD> Cosigner Signature (if applicable): CC: Dr. Mary Prather MD; Dr. Homer Marsh MD; Hamzah Pruitt~ Signed [facility] Work Phone: Evaluation note* Diagnosis Chronic midline low back pain without sciatica- Primary Spinal stenosis of lumbar region with neurogenic claudication Spinal stenosis, lumbar region, with neurogenic claudication [facility] Diagnosis Spinal stenosis of lumbar region with neurogenic claudication Spinal stenosis, lumbar region, with neurogenic claudication documented [facility]* Diagnosis Anemia, unspecified type- Primary Iron [...] Slow transit constipation documented [facility] encounter [facility] Diagnosis Chronic bilateral low back pain without sciatica- Primary Spinal stenosis of lumbar region with neurogenic claudication Spinal stenosis, lumbar region, with neurogenic claudication [facility] Leg swelling- Primary Swelling of limb Primary hypertension Unspecified essential hypertension [facility] Diagnosis Anemia, unspecified type- Primary [facility] Diagnosis Spinal stenosis of lumbar region with neurogenic claudication- Primary Spinal stenosis, lumbar region, with neurogenic claudication Chronic bilateral low back pain without sciatica documented [facility] Diagnosis Anemia, unspecified type- Primary Iron deficiency Iron deficiency anemia, unspecified [facility] Diagnosis Spinal stenosis of lumbar [...] [facility] Diagnosis Pes anserine bursitis Pes anserinus tendinitis or bursitis Acute pain of right knee [facility] Diagnosis Benign hypertension- Primary Essential hypertension, benign 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 Mixed hyperlipidemia PAF (paroxysmal atrial fibrillation) (HCC) 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 with INR goal of 2.0-3.0 Long-term (current) use of anticoagulants RBBB Right bundle branch block PVC's (premature ventricular contractions) Other premature beats [facility] Diagnosis Spinal stenosis of lumbar region with neurogenic claudication- Primary Spinal stenosis, lumbar region, with neurogenic claudication Arthropathy of lumbar facet joint Lumbosacral spondylosis without myelopathy [facility] Diagnosis Chronic heart failure with preserved ejection fraction (HCC)- Primary Spinal stenosis of lumbar region with neurogenic claudication Spinal stenosis, lumbar region, with neurogenic claudication Arthropathy of lumbar facet joint Lumbosacral spondylosis without myelopathy [facility] Diagnosis Spinal stenosis of lumbar [...] spondylosis without myelopathy [facility] Diagnosis CHF (congestive heart failure), NYHA class I, acute on chronic, diastolic (HCC)- Primary [facility]* Diagnosis Cerebrovascular accident (CVA), unspecified mechanism ([facility])- Primary Primary hypertension Unspecified essential hypertension Atrial fibrillation, unspecified type ([facility]) 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 Long-term (current) use of anticoagulants documented [facility] this encounter [facility]* Diagnosis 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[facility])- Primary Unspecified cerebral artery occlusion with cerebral infarction Right pontine stroke ([facility]) Unspecified cerebral artery occlusion with cerebral infarction [...] of cerebrovascular disease documented [facility]* Diagnosis Complete heart [...] Ankle edema, bilateral documented [facility] this [facility]* Diagnosis Pacemaker- Primary Cardiac pacemaker in situ PAF (paroxysmal atrial fibrillation) ([facility]) Atrial fibrillation documented [facility] this [facility]* Diagnosis Impending cerebrovascular accident (HCC)- Primary Unspecified transient cerebral ischemia Cerebral artery occlusion with cerebral infarction (HCC) Unspecified cerebral artery occlusion with cerebral infarction Numbness in cervical dermatome distribution Disturbance of skin sensation Paresthesia Disturbance of skin sensation [facility] Diagnosis Macrocytic anemia- Primary Unspecified deficiency anemia Macrocytic anemia Unspecified deficiency anemia [facility] Diagnosis Chronic heart failure with preserved ejection fraction (HCC) [I50.32 (ICD-10-CM)]- Primary Macrocytic anemia Unspecified deficiency anemia [facility] Diagnosis Macrocytic anemia Unspecified deficiency anemia [facility] Diagnosis Impending cerebrovascular accident (HCC)- Primary Unspecified transient cerebral ischemia Cerebral artery occlusion with cerebral infarction (HCC) Unspecified cerebral artery occlusion with cerebral infarction Paresthesia Disturbance of skin sensation [facility]* Diagnosis MDS (myelodysplastic syndrome) (HCC)- Primary Myelodysplastic syndrome, unspecified Macrocytic anemia Unspecified deficiency anemia [facility]* Diagnosis 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 Chronic myeloid leukemia, without mention of having achieved remission [facility]* Diagnosis Chronic myelomonocytic leukemia not [...] Essential hypertension, benign 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 Mixed hyperlipidemia PAF (paroxysmal atrial fibrillation) (HCC) Atrial fibrillation Pacemaker Cardiac pacemaker in situ CHB (complete heart block) (HCC) Atrioventricular block, complete senior care current use of anticoagulant Long-term (current) use of anticoagulants [facility] Diagnosis 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 Chronic myeloid leukemia, without mention of having achieved remission Benign hypertension- Primary Essential hypertension, benign 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 Mixed hyperlipidemia PAF (paroxysmal atrial fibrillation) (HCC) Atrial fibrillation Pacemaker Cardiac pacemaker in situ CHB (complete heart block) (HCC) Atrioventricular block, complete senior care current use of anticoagulant Long-term (current) use of anticoagulants [facility] Diagnosis 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 Chronic myeloid leukemia, without mention of having achieved remission [facility]* Diagnosis Benign hypertension- Primary Essential hypertension, benign 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 Mixed hyperlipidemia PAF (paroxysmal atrial fibrillation) (HCC) Atrial fibrillation Pacemaker Cardiac pacemaker in situ CHB (complete heart block) (HCC) Atrioventricular block, complete senior care current use of anticoagulant Long-term (current) use [...] Unspecified deficiency anemia [facility] Diagnosis Chronic myelomonocytic leukemia not [...] Drug induced neutropenia [facility] Diagnosis PAF (paroxysmal atrial fibrillation) [...] Swelling of limb [facility]* Diagnosis Chronic heart failure with preserved ejection fraction (HCC)- Primary Essential hypertension, benign [facility] Diagnosis Need for hepatitis B booster vaccination- Primary Immunity status testing Antibody response examination [facility]* Diagnosis 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 Chronic myeloid leukemia, without mention of having achieved remission [facility]* Diagnosis MDS (myelodysplastic syndrome) (HCC)- Primary Myelodysplastic syndrome, unspecified DVT of axillary vein, 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 [facility]* Diagnosis Onset Date Resolution Status Feared condition not demonstrated acute Acquired immunocompromised state acute Cellulitis of right lower leg acute Complete heart block acute Coronary artery disease 2021 acut e Hypoxemia acute Pacemaker 2021 acute Sepsis acute CMML (chronic myelomonocytic leukemia) [facility] Work Phone: Evaluation note* Diagnosis 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 Chronic myeloid leukemia, without mention of having achieved remission Right leg pain Pain in limb [facility]* Diagnosis Onset Date Resolution Status Feared condition not demonstrated acute Acquired immunocompromised state acute Bacteremia due to Gram-negative bacteria acute Cellulitis of right lower leg acute Complete heart block acute Coronary artery disease 2021 acut e Hypoxemia acute Pacemaker 2021 acute Sepsis acute CMML (chronic myelomonocytic leukemia) [facility] Work Phone: Evaluation note* Diagnosis Gram-negative bacteremia- Primary Bacteremia Cellulitis of right lower extremity Cellulitis and abscess of leg, except foot Acute on chronic diastolic congestive heart failure (HCC) Acute on chronic diastolic heart failure Venous stasis of both lower extremities PAF (paroxysmal atrial fibrillation) (HCC) Atrial fibrillation Essential hypertension, benign 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) Chronic myeloid leukemia, without mention of having achieved remission Constipation due to slow transit Slow transit constipation 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 Acute deep vein thrombosis (DVT) of non-extremity vein [facility]* Diagnosis Lymphedema of both lower extremities- Primary Chronic heart failure with preserved ejection fraction (HCC) PAF (paroxysmal atrial fibrillation) (HCC) Atrial fibrillation 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) Chronic myeloid leukemia, without mention of having achieved remission History of bacteremia Personal history of other infectious and parasitic disease Generalized osteoarthrosis Generalized osteoarthrosis, unspecified site [facility] Onset Date Resolution Status Feared condition not demonstrated acute Acquired immunocompromised state acute Bacteremia due to Gram-negative bacteria acute Coronary artery disease 2021 acut e Hypoxemia acute Pacemaker 2021 acute Sepsis acute CMML (chronic myelomonocytic leukemia) chronic Cellulitis of right lower leg resolved [facility] Work Phone: Evaluation note* Diagnosis Chronic atrial fibrillation (HCC)- Primary Atrial fibrillation Benign hypertension Essential hypertension, benign 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 Mixed hyperlipidemia 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 Long-term (current) use of anticoagulants Pacemaker Cardiac pacemaker in situ CHB (complete heart block) (HCC) Atrioventricular block, complete PVC's (premature ventricular contractions) Other premature beats [facility] Encounter for care of pacemaker- Primary [facility] Lymphedema of both lower extremities- Primary Chronic heart failure with preserved ejection fraction (HCC) Encounter for immunization Need for other specified prophylactic vaccination against single bacterial disease [facility] Diagnosis Lymphedema of both lower extremities Chronic heart failure with preserved ejection fraction (HCC) [facility] Acute cough [facility] Diagnosis Unstable gait Abnormality of gait Postural dizziness Dizziness and giddiness Confusion and disorientation Diplopia [facility] Diagnosis 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 Chronic myeloid leukemia, without mention of having achieved remission MDS (myelodysplastic syndrome) (HCC) Myelodysplastic syndrome, unspecified [facility] Diagnosis Lymphedema of both lower extremities Chronic heart failure with preserved ejection fraction (HCC) [facility] Diagnosis Lymphedema of both lower extremities Chronic heart failure with preserved ejection fraction (HCC) Hypothyroidism, unspecified type [facility] Diagnosis Right elbow pain- Primary Pain in joint, upper arm Monoarthritis of elbow, right [facility] Diagnosis 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 Chronic myeloid leukemia, without mention of having achieved remission MDS (myelodysplastic syndrome) (HCC) Myelodysplastic syndrome, unspecified [facility] Diagnosis 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 Chronic myeloid leukemia, without mention of having achieved remission Macrocytic anemia Unspecified deficiency anemia [facility] Diagnosis Medicare annual wellness visit, subsequent- Primary Routine general medical examination at a general [facility] facility Mixed hyperlipidemia Lymphedema of both lower extremities Chronic heart failure with preserved ejection fraction (HCC) Hypothyroidism, unspecified type Primary hypertension Unspecified essential hypertension B12 deficiency Other B-complex deficiencies Vitamin D deficiency Unspecified vitamin D deficiency [facility] Diagnosis Hypothyroidism, unspecified type- Primary Benign hypertension- Primary Essential hypertension, benign 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 Mixed hyperlipidemia Pacemaker Cardiac pacemaker in situ CHB (complete heart block) (HCC) Atrioventricular block, complete Chronic atrial fibrillation (HCC) Atrial fibrillation 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 Long-term (current) use of anticoagulants [facility] Diagnosis Benign hypertension- Primary Essential hypertension, benign 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 Mixed hyperlipidemia Pacemaker Cardiac pacemaker in situ CHB (complete heart block) (HCC) Atrioventricular block, complete Chronic atrial fibrillation (HCC) Atrial fibrillation senior care current use of anticoagulant Long-term (current) use of anticoagulants [facility] Diagnosis Encounter for care of pacemaker- Primary [facility] Diagnosis 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 Chronic myeloid leukemia, without mention of having achieved remission Macrocytic anemia Unspecified deficiency anemia [facility] Diagnosis 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 Chronic myeloid leukemia, without mention of having achieved remission [facility] Diagnosis 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 Chronic myeloid leukemia, without mention of having achieved remission [facility]* Diagnosis Encounter for care of pacemaker- Primary [facility] Diagnosis Chronic heart failure with preserved ejection fraction (HCC) [facility] Diagnosis Right elbow pain Pain in joint, upper arm Monoarthritis of elbow, right [facility] Diagnosis Benign hypertension- Primary Essential [...] Abnormal chest sounds [facility] Diagnosis 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 Chronic myeloid leukemia, without mention of having achieved remission History of anemia Personal history of diseases of blood and blood-forming organs [facility] Diagnosis Benign hypertension- Primary Essential hypertension, benign 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 Mixed hyperlipidemia Pacemaker Cardiac pacemaker in situ CHB (complete heart block) (HCC) Atrioventricular block, complete Chronic atrial fibrillation (HCC) Atrial fibrillation 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 Long-term (current) use [...] Shortness of breath [facility] Diagnosis Encounter for care of pacemaker- Primary [facility] Diagnosis Chronic atrial fibrillation (HCC)- Primary Atrial fibrillation [facility] Diagnosis 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 Chronic myeloid leukemia, without mention of having achieved remission Macrocytic anemia Unspecified deficiency anemia [facility]* Diagnosis Anemia due to chronic [...] Slow transit constipation [facility] Diagnosis 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) Chronic myeloid leukemia, without mention of having achieved remission MDS (myelodysplastic syndrome) (HCC) Myelodysplastic syndrome, unspecified [facility] Diagnosis 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) Chronic myeloid leukemia, without mention of having achieved remission MDS (myelodysplastic syndrome) (HCC) Myelodysplastic syndrome, unspecified [facility]* Diagnosis 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) Chronic myeloid leukemia, without mention of having achieved remission MDS (myelodysplastic syndrome) (HCC) Myelodysplastic syndrome, unspecified [facility]* Diagnosis Lymphedema of right lower extremity- Primary Lymphedema of both lower extremities Pacemaker reprogramming/check Fitting and adjustment of cardiac pacemaker Benign hypertension- Primary Essential hypertension, benign 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 Mixed hyperlipidemia Pacemaker Cardiac pacemaker in situ CHB (complete heart block) (HCC) Atrioventricular block, complete Chronic atrial fibrillation (HCC) Atrial fibrillation 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 Long-term (current) use of anticoagulants [facility] Diagnosis Lymphedema of right lower extremity- Primary Pacemaker reprogramming/check Fitting and adjustment of cardiac pacemaker Benign hypertension- Primary Essential hypertension, benign 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 Mixed hyperlipidemia Pacemaker Cardiac pacemaker in situ CHB (complete heart block) (HCC) Atrioventricular block, complete Chronic atrial fibrillation (HCC) Atrial fibrillation 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 Long-term (current) use of anticoagulants [facility] Diagnosis Benign hypertension- Primary Essential hypertension, benign 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 Mixed hyperlipidemia Pacemaker Cardiac pacemaker in situ CHB (complete heart block) (HCC) Atrioventricular block, complete Chronic atrial fibrillation (HCC) Atrial fibrillation 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 Long-term (current) use [...] of unspecified site(s), without mention of complication [employer] (current) use of anticoagulants Long-term (current) use [...] of unspecified site(s), without mention of complication [employer] (current) use of anticoagulants Long-term (current) use [...] of cardiac pacemaker [facility]* Diagnosis 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) Chronic myeloid leukemia, without mention of having achieved remission MDS (myelodysplastic syndrome) (HCC) Myelodysplastic syndrome, unspecified Pacemaker reprogramming/check Fitting and adjustment of cardiac pacemaker [facility] noteNo assessment information [facility]WSouthern [facility] Work Phone: Evaluation note* Diagnosis Cellulitis of left leg- Primary Cellulitis and abscess of leg, except foot Lymphedema of both lower extremities 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, unspecified acute renal failure type (HCC) 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) Pacemaker reprogramming/check Fitting and adjustment of cardiac pacemaker [facility]* Diagnosis Onset Date Resolution Status Admit Date Cellulitis of left leg acute Au marylou 2024 4:21pm Chronic anticoagulation acute A ugust 2024 4:21pm History of atrial fibrillation acute June 23, 2025 4:21pm History of chronic myeloid leukemia acute June 23 4:21pm History of stroke acute June 23, 2025 4:21pm [facility] Work Phone: Evaluation note* Diagnosis Cellulitis of left leg- Primary Cellulitis and abscess of leg, except foot Lymphedema of both lower extremities 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, unspecified acute renal failure type (HCC) 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) Pacemaker reprogramming/check Fitting and adjustment of cardiac pacemaker [facility] Author Mary Prather [facility] May 14, 2023 5:26pm Note Date/Time May 14, 2023 4:54p [facility] Medical Records Department [facility] [place] [address] H&P Exam - Hospitalist 05/14/23 1647 MR#: [id number] Acct: [id number] Name: SRINI LUIS Rep #:[id number] : 1935 87 From: Mary Prather MD PCP: Hamzah Pruitt Status:ADM IN Location: [place] [id number] HPI - General General Date of Admission: 05/14/23 Date of Service: 05/14/23 Chief Complaint: Chills, RLE pain HPI Narrative Mr. 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 [...] coughing. No other complaints at this time [facility] Medical History (Updated 05/14/23 @ 17:22 [...] (Auto) 89.7 H, Lymph% (Auto) 5.6 L, Calloway % (Auto) 2.7, Eos % (Auto) 0.0, [...] fluid overload Charges/Coding Visit Charges Inpatient E&M: 58271 Init Hosp L3 05/14/23 1726 <Electronically signed by Mary Prather MD> Cosigner Signature (if applicable): CC: Dr. Mary Prather MD; Hamzah Pruitt~ Signed [facility] Work Phone: History and physical note Author Mary Prather [facility] Note Date/Time June 23, 2025 5: 14pm [facility] Medical Records Department [address] [place] [address] H&P Exam - Hospitalist 06/23/25 1621 MR#: [id number] Acct: [id number] Name: SRINI LUIS Rep #:[id number] : 1935 89 From: Mary Prather MD PCP: Dr. Ronaldo Pleitez MD Status:R EG ER Location: ED HPI - General General Date of Admission: 06/23/25 Date of Service: 06/23/25 Chief Complaint: Increasing left lower extremity swelling HPI Narrative SRINI LUIS, is a 89-year-old male history of CABG, CVA, pacemaker, A-fib on Xarelto, hypothyroidism, CML who presented to [facility] ED 06/23/2025 with worsening cellulitis of his left lower extremity. He has chronicbilateral lower extremity swelling and about a week ago developed cellulitis of his left lower leg and has been on oral antibiotics however the redness is getting worse so he was sent to the ED to be admitted for IV antibiotics. In the ED temp 97.9, heart rate 61 and blood pressure 121/72, respiratory rate 16 and pulse ox 93% on room air. CBC with white blood cell count within normal limits and no left shift, hemoglobin 9.7 which appears baseline. BMP with a BUNof 41 and a creatinine of 1.43, only other recent labs were 5 days ago with a creatinine of 1.37 so it is possible that this is patient's baseline but labs prior to that were back in 2022 and a baseline closer to 1. Patient given IV Zosyn and hospitalist contacted for admission. Patient evaluated at bedside. Reportedly has had the symptoms for the past 1 week but has further worsened over the past several days, there has been some serious drainage with a yellow tinge but does not sound to have any overt pus. Patient denies any significant pain associated, no fevers or chills, no other new or acute complaints [facility] Medical History Cellulitis CMML (chronic myelomonocytic leukemia) Lumbar stenosis Nocturnal hypoxemia Osteoarthritis Atheroembolism of foot Myasthenia gravis Pacemaker (~09/2022) Cerebral vascular accident (~08/2022) Complete heart block Coronary artery disease (~09/2022) Hypothyroidism HLD (hyperlipidemia) Benign essential HTN Home Medications ?Medication ?Instructions ?Recorded ?Last Taken ?Type cholecalciferol (vitamin D3) 25 25 mcg PO DAILY 05/14/23 History mcg (1,000 unit) tablet cyanocobalamin (vitamin B-12) 1,000 mcg PO DAILY 04/0905/14/23 History 1,000 mcg capsule multivitamin 1 tab PO DAILY 04/09/23 0705/01 History rivaroxaban 20 mg tablet (Xarelto) 20 mg PO QPM 05/13/23 History atorvastatin 20 mg tablet 20 mg PO QHS 05/14/23 History folic acid 1 mg tablet 1 mg PO BREAKFAST 30 days #3 0 tabs 05/18/23 Unknown Rx polyethylene glycol 3350 17 17 g PO DAILY PRN constipa tion 05/20/23 Unknown Rx gram/dose oral powder (Miralax) #238 grams furosemide 40 mg tablet 40 mg PO DAILY 06/18/25 Unkn own History levothyroxine 100 mcg tablet 100 mcg PO DAILY 06/18/25 Unknown History (Synthroid) cephalexin 500 mg capsule 500 mg PO Q8H 5 days #15 cap s 06/19/25 Unknown Rx metolazone 5 mg tablet 5 mg PO DAILY 06/23/25 Unkno wn History nitroglycerin 0.4 mg sublingual 0.4 mg sublingual Q5M 06/23/25 Unknown History tablet Allergy/AdvReac Type Severity Reaction Status Date / Time No Known Allergies Allergy Verified 06/23/25 13:27 Family History Mother Heart disease Father Heart [...] does not use ROS ROS Narrative General: Denies fever/chills HENT: Denies headache, denies stuffy nose, denies sore throat EYES: Denies changes in vision Resp: Denies cough, denies shortness of breath Cardiac: Denies chest pain GI: Denies abdominal pain, denies changes in bowel, denies nausea/vomiting : Denies changes in urination Extremity: Denies swelling MSK: Denies weakness Neuro: Denies any numbness/tingling Heme: Denies any bleeding or bruising Skin: Erythema of left lower extremity extending up towards knee with some serous drainage Psychiatric: No complaints voiced Vital Signs Vital Signs Vital Signs: 06/23/25 13:25 08/15/25 16:20 Temperature 97.9 F Temperature Source Oral Pulse Rate 61 80 Respiratory Rate 16 15 Blood Pressure 121/72 H 98/71 Blood Pressure Mean 88 80 Pulse Ox 93 99 Oxygen Delivery Method Room Air Room Air Weight Weight: 82.826 kg Body Mass Index (BMI) 28.5 Physical Exam Narrative General: Alert, no apparent distress HEENT: Atraumatic, normocephalic Eyes: Anicteric, normal conjunctiva, extraocular movements grossly intact Neck: Supple Respiratory: No overt wheezes or rhonchi, normal respiratory effort Cardiovascular: Regular rate GI: Soft, nontender, nondistended Extremities: Edema in bilateral lower extremities around 1+ Musculoskeletal: Moving all extremities Neuro: No overt focal neurological deficits Skin: Erythema primarily of left lower extremity, some on foot and more so ankleup towards knee with some serous drainage, no pain reported on palpation or fluctuance Psych: Cooperative Results Lab / Micro Data 06/23/25 14:23 06/23/25 14:23 Labs: Laboratory Results - last 24 hr 06/23/25 14:23: WBC 6.8, RBC 2.65 L, Hgb 9.7 L, Hct 29.5 L, MCV 111.3 H, MCH 36.6 H, MCHC 32.9, RDW Std Deviation 109.9 H, RDW Coeff of Luis Alberto 26.7 H, Plt [id number], MPV 10.6, Immature Gran % (Auto) 0.300, Neut % (Auto) 68.2, Lymph % (Auto) 14.5 L, Calloway % (Auto) 15.5 H, Eos % (Auto) 0.9, Baso % (Auto) 0.6, Absolute Neuts (auto) 4.7, Absolute Lymphs (auto) 0.99, Nucleated RBC % 0.7, Sodium 138, Potassium 3.3, Chloride 92 L, Carbon Dioxide 32.5 H, Anion Gap 13, BUN 41 H, Creatinine 1.43 H, Estim Creat Clear Calc 36.06 L, Est GFR (MDRD) Non-Af 47 L, BUN/Creatinine Ratio 28.4 H, Glucose 160 H, Calcium 9.0 Assessment & Plan Assessment/Plan (1) Cellulitis of left leg: PLAN: Plan # Left lower extremity cellulitis - Failed outpatient management with oral antibiotics - Will treat with IV Unasyn, no evidence of any purulence and patient does not have known history of diabetes so feel that this would be sufficient coverage atthis time - Elevate extremity #Hx of CAD -w/ previous CABG -Continue home medications # CKD stage III a -BMP with a BUN of 41 and a creatinine of 1.43, only other recent labs were 5 days ago with a creatinine of 1.37 so it is possible that this is patient's baseline but labs prior to that were back in 2022 and a baseline closer to 1 -Avoid nephrotoxic agents -Daily BMPs # History of CVA - Continue home medications - Heart healthy diet #Paroxysmal Atrial Fibrillation - Continue Xarelto #Hypothyroidism -Continue Synthroid #DVT ppx: Patient already on full dose anticoagulation with Xarelto Mary Prather MD Charges/Coding Visit Charges Inpatient E&M: 07508 Init Hosp L2 06/23/25 0571 <Electronically signed by Mary Prather MD> Cosigner Signature (if applicable): CC: Dr. Mary Prather MD; Dr. Ronaldo Pleitez MD~ Signed [facility] Work Phone: Hospital Discharge instructionsAdditional Instructions Your evaluation in the Emergency Department did not reveal any acute reason for admission. However, I want to emphasize that you may be early in the course of a disease process or illness even if it is not present. For this reason you should follow-up within 24 hours for reevaluation with either your primary care physician or if necessary back here in the Emergency Department. You should return to the Emergency Department immediately if your symptoms worsen or new symptoms develop. Please take the antibiotic once every 8 hours for the next 5 days. You need to return tomorrow morning to have an ultrasound of your leg done outpatient. You need to follow-up with your primary care doctor within the next 48 hours for a recheck of your kidney levels. Return to the ED with any symptoms as discussed including worsening redness or swelling of the leg, fatigue, fevers, chills, nausea or vomiting.[facility] Work Phone: Reason for referral (narrative)* Diagnostic Procedure Only (Routine) - Closed Specialty Diagnoses / Procedures Referred By Carissa t Referred To Contact XR IMAGING Diagnoses Spinal stenosis of lumbar region with neurogenic claudication Procedures XR LUMBAR MOTION 4V AP/LAT/ FLEX/EXT RADEX SPINE LUMBOSACRAL MINIMUM 4 VIEWS Laron Fortune, ANDREW [address] [place] [id number] Xr Imaging Referral ID Status Reason Start Date Expiration Date V isits Requested Visits Authorized [id number] Closed Auto-Generate d Referral 02/28/2022 03/30/2023 1 1 [facility] for referral (narrative)* Diagnostic Procedure Only (Routine) - Pending Review Specialty Diagnoses / Procedures Referred By Contac t Referred To Contact XR IMAGING Diagnoses Pes anserine bursitis Acute pain of right knee Procedures XR KNEE LIMITED 2V AP/LAT RIGHT RADIOLOGIC EXAMINATION KNEE 1/2 VIEWS Israel Pruitt DO [address] [place] [address] Xr Imaging Referral ID Status Reason Start Date Expiration Date Visits Requested Visits Authorized [id number] Pending Review Auto-Generat ed Referral 05/29/2022 06/28/2023 [...] HIGH COMPLEX [address] Israel Pruitt DO [address] [place] [address] [facility] [address] [address] Referral ID Status Reason Start Date Expiration Date Visits Requested Visits Authorized [id number] Pending Review Auto-Generat ed Referral 05/29/2022 05/29/2023 1 1 [facility] for referral (narrative)* Diagnostic Procedure Only (Routine) - Closed Specialty Diagnoses / Procedures Referred By Contac t Referred To Contact XR IMAGING Diagnoses Pes anserine bursitis Acute pain of right knee Procedures XR KNEE LIMITED 2V AP/LAT RIGHT RADIOLOGIC EXAMINATION KNEE 1/2 VIEWS Israel Pruitt DO [address] [place] [address] Xr Imaging Referral ID Status Reason Start Date Expiration Date V isits Requested Visits Authorized [id number] Closed Auto-Generate d Referral 05/29/2022 06/28/2023 1 1 [facility] for referral (narrative)* Outpatient Procedure (Routine) - Closed Specialty Diagnoses / Procedures Referred By Contac t Referred To Contact [facility] Diagnoses Benign hypertension Procedures ECG COMPLETE ECG ROUTINE ECG W/LEAST 12 LDS W/I&R Iram Johnson, TOOL ROOM SUPERVISOR.TUMOR REGISTRAR [address] [address] [facility] [address] [place] [address] Referral ID Status Reason Start Date Expiration Date V isits Requested Visits Authorized [id number] Closed Auto-Generate d Referral 06/06/2022 06/06/2023 1 1 [facility] for referral (narrative)* Diagnostic Procedure Only (Urgent) - Closed Specialty Diagnoses / Procedures Referred By Contac t Referred To Contact US IMAGING Diagnoses Traumatic ecchymosis of foot, right, initial encounter Bilateral calf pain Venous stasis of both lower extremities Procedures US DVT LOWER BILATERAL DUP-SCAN XTR VEINS COMPLETE BILATERAL STUDY Israel Pruitt DO [address] [place] [address] Us Imaging Referral ID Status Reason Start Date Expiration Date V isits Requested Visits Authorized [id number] Closed Auto-Generate d Referral 03/25/2023 04/23/2024 1 1 [facility] for referral (narrative)* Outpatient Procedure (Urgent) - Pending Review Specialty Diagnoses / Procedures Referred By Contac t Referred To Contact [facility] Diagnoses 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) Arm swelling Procedures US ARM VEIN DVT UNL VAS LAB DUP-SCAN XTR VEINS UNILATERAL/LIMITED STUDY Baljinder Galloway DO [address] [place] [address] [facility] [place] [address] [facility] [place] [address] Referral ID Status Reason Start Date Expiration Date Visits Requested Visits Authorized [id number] Pending Review Auto-Generat ed Referral 05/05/2023 05/04/2024 1 1 [facility] for referral (narrative)* Diagnostic Procedure Only (Urgent) - Authorized Specialty Diagnoses / Procedures Referred By Contac t Referred To Contact US IMAGING Diagnoses Right leg pain Procedures US DVT LOWER RIGHT DUP-SCAN XTR VEINS UNILATERAL/LIMITED STUDY Israel Gates MD [address] [place] [address] Us Imaging Referral ID Status Reason Start Date Expiration Date Visits Requested Visits Authorized [id number] Authorized Auto-Generat ed Referral 05/14/2023 06/12/2024 1 1 [facility] for referral (narrative)* Diagnostic Procedure Only (Routine) - Closed Specialty Diagnoses / Procedures Referred By Contac t Referred To Contact XR IMAGING Diagnoses Right elbow pain Monoarthritis of elbow, right Procedures XR ELBOW SPECIAL VIEWS AP/LAT/OTHER RIGHT RADEX ELBOW COMPLETE MINIMUM 3 VIEWS Ronaldo Pleitez MD [address] [place] [address] [place] [id number] Referral ID Status Reason Start Date Expiration Date V isits Requested Visits Authorized [id number] Closed Auto-Generate d Referral 12/23/2023 01/21/2025 1 1 [facility] for referral (narrative)* Diagnostic Procedure Only (Routine) - Closed Specialty Diagnoses / Procedures Referred By Contac t Referred To Contact XR IMAGING Diagnoses Right elbow pain Monoarthritis of elbow, right Procedures XR ELBOW SPECIAL VIEWS AP/LAT/OTHER RIGHT RADEX ELBOW COMPLETE MINIMUM 3 VIEWS Ronaldo Pleitez MD [address] [place] [address] [place] [id number] Referral ID Status Reason Start Date Expiration Date V isits Requested Visits Authorized [id number] Closed Auto-Generate d Referral 12/23/2023 01/21/2025 1 1 [facility] for referral (narrative)* Diagnostic Procedure Only (Routine) - New Request Specialty Diagnoses / Procedures Referred By Contac t Referred To Contact [facility] Diagnoses 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 Encounter for screening for cardiovascular disorders SOB (shortness of breath) Procedures NM CARDIAC PERF STRESS/PHARM MYOCARDIAL SPECT MULTIPLE STUDIES Iram Johnson APRN.TUMOR REGISTRAR [address] [address] [facility] [address] [place], [place] [id number] Referral ID Status Reason Start Date Expiration Date Visits Requested Visits Authorized [id number] New Request Auto-Generat ed Referral 10/27/2025 1 1 [facility] for referral (narrative)No reason for referral [facility] Work Phone: [facility] Narrative* Diagnostic Procedure Only (Routine) - Closed Specialty Diagnoses / Procedures Referred By Contac t Referred To Contact XR IMAGING Diagnoses Spinal stenosis of lumbar region with neurogenic claudication Procedures XR LUMBAR MOTION 4V AP/LAT/ FLEX/EXT RADEX SPINE LUMBOSACRAL MINIMUM 4 VIEWS Laron Fortune PA-C [address] [place] [address] Xr Imaging Referral ID Status Reason Start Date Expiration Date V isits Requested Visits Authorized [id number] Closed Auto-Generate d Referral 02/28/2022 03/30/2023 1 1 [facility] for visit Narrative* Diagnostic Procedure Only (Routine) - Closed Specialty Diagnoses / Procedures Referred By Contac t Referred To Contact XR IMAGING Diagnoses Pes anserine bursitis Acute pain of right knee Procedures XR KNEE LIMITED 2V AP/LAT RIGHT RADIOLOGIC EXAMINATION KNEE 1/2 VIEWS Israel Pruitt, DO [address] [place] [address] Xr Imaging Referral ID Status Reason Start Date Expiration Date V isits Requested Visits Authorized [id number] Closed Auto-Generate d Referral 05/29/2022 06/28/2023 1 1 [facility] for visit Narrative* Diagnostic Procedure Only (Routine) - Closed Specialty Diagnoses / Procedures Referred By Contac t Referred To Contact XR IMAGING Diagnoses Right elbow pain Monoarthritis of elbow, right Procedures XR ELBOW SPECIAL VIEWS AP/LAT/OTHER RIGHT RADEX ELBOW COMPLETE MINIMUM 3 VIEWS Ronaldo Pleitez MD [address] [place] [id number] [place] [address] Referral ID Status Reason Start Date Expiration Date V isits Requested Visits Authorized [id number] Closed Auto-Generate d Referral 12/23/2023 01/21/2025 1 1 [facility] for visit Narrative* [place] Prior Authorization (Routine) - Authorized Specialty Diagnoses / Procedures Referred By Contac t Referred To Contact Diagnoses 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) Procedures DARBEPOETIN MARILU, NON-ESRD Baljinder Galloway, DO [address] [place] [address] Phone: tel: fax: Hematology/Oncology [address] [place] [address] Phone: tel: fax: Referral ID Status Reason Start Date Expiration Date V isits Requested Visits Authorized [id number] Authorized 11/22/2024 05/09/2025 12 [facility] [place] Prior Authorization (Routine) - Authorized Specialty Diagnoses / Procedures Referred By Carissa t Referred To Contact Diagnoses 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) Procedures DARBEPOETIN MARILU, NON-ESRD Baljinder Galloway DO [address] [place] [address] Phone: tel: fax: Hematology/Oncology [address] [place] [address] Phone: tel: fax: Referral ID Status Reason Start Date Expiration Date V isits Requested Visits Authorized [id number] Authorized 11/22/2024 05/09/2025 12 12 [facility] Chief Complaint Chief Complaint Description Start Date right ankle pain Preliminary chief co mplaint data, not yet signed by the author as of Instructions Instruction Description Start Date CompletedPatient advised to follow-up with Primary Care Physician for BMI management. 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 Analyst Expl anation Advance Directive(s) 05/30/2022 10:37 AM Advance Directive(s) 02/01/2021 2:20 PM Documents on File Type Date Recorded 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 Expl anation Advance Directive(s) 05/30/2022 10:37 AM [...] Documents on File Type Date Recorded 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 Analyst Expl anation Advance Directive(s) 05/30/2022 10:37 AM Latest Code Status on File Code Status Date Activated Date Inactivated Comments Full Code 09/15/2022 5:52 PM 09/18/2022 10:33 PM Full Code 08/27/2022 8:34 AM 09/05/2022 5:31 PM Full Code 08/22/2022 6:39 PM 08/26/2022 5:09 PM Advance Directive Response Recorded Date/ Time Name of Medical Power of Undergraduate Intern Liza Mark May 14, 2023 12:18pm Living Will Yes May 14, 2023 1 2:18pm Power of Undergraduate Intern Yes May 14, 2023 12:18pm Advance Directive Response Recorded Date/ Time Name of Medical Power of Undergraduate Intern Liza Mark May 14, 2023 6:22pm Living Will Yes May 14, 2023 6 :22pm Power of Undergraduate Intern Yes May 14, 2023 6:22pm Latest Code [...] Comments Full Code Order Discussed With: Patient Advance Directive Response Recorded Date/ Time Do you have a Healthcare Power of Undergraduate Intern? Yes June 18, 2025 9:25pm Advance Directive Response Recorded Date/ Time Do you have a Healthcare Power of Undergraduate Intern? Yes June 18, 2025 9:25pm Do you have a Healthcare Power of Undergraduate Intern? Yes June 23, 2025 1:43pm Name of Medical Power of Undergraduate Intern liza mark June 23, 2025 1:43pm Assessments There may be information available, but it has not been provided by the sender. Review of System There may be information available, but it has not been provided by the sender. Family History Relationship Condition Age at Onset Recorded Date/T meaghan mother Cardiac disease Unknown father Cardiac disease Unknown History of Present Illness There may be information available, but it has not been provided by the sender. Summary Purpose Reason for Referral Specialty Diagnoses / Procedures Referred By Contac t Referred To Contact MR IMAGING Diagnoses Spinal stenosis of lumbar region with neurogenic claudication Procedures MRI LUMBAR SPINE WO IVCON MRI SPINAL CANAL LUMBAR W/O CONTRAST MATERIAL Laron Fortune PA-C [address] [place] [address] Mr Imaging Referral ID Status Reason Start Date Expiration Date Visits Requested Visits Authorized [id number] Authorized Auto-Generat ed Referral 05/08/2022 06/07/2023 1 1 Referral ID Status Reason Start Date Expiration Date V isits Requested Visits Authorized [id number] Closed Auto-Generate d Referral 05/08/2022 06/07/2023 1 1 Specialty Diagnoses / Procedures Referred By Contac t Referred To Contact CT IMAGING Diagnoses Unstable gait Postural dizziness Confusion and disorientation Diplopia Procedures CT BRAIN WO IVCON CT HEAD/BRAIN W/O CONTRAST MATERIAL Israel Pruitt DO [address] [place] [address] Ct Imaging Referral ID Status Reason Start Date Expiration Date Visits Requested Visits Authorized [id number] Authorized Auto-Generat ed Referral 04/20/2023 05/19/2024 1 1 Specialty Diagnoses / Procedures Referred By Contac t Referred To Contact CT IMAGING Diagnoses Unstable gait Postural dizziness Confusion and disorientation Diplopia Procedures CT BRAIN WO IVCON CT HEAD/BRAIN W/O CONTRAST MATERIAL Israel Pruitt, [address] [place] [address] [place] [address] Referral ID Status Reason Start Date Expiration Date V isits Requested Visits Authorized [id number] Closed Auto-Generate d Referral 04/20/2023 05/19/2024 1 [...] 8 mg, INTRAVENOUS, ONCE, 1 dose, On Thu01/12/23 at 0930 Given 01/12/2023 9:29 AM EST [...] Hazardous Chemotherapy Drug: Use appropriate PPE. New Bag/Syringe/Elisoe le 01/14/2023 9:20 AM EST 146.25 mg [...] over 10 Minutes, ONCE, 1 dose, On Thu01/15/23 at 0830, Must Be Given Within 1 [...] Within 1 Hour Of Reconstitution - EXPIRES 10:0502-12-2023 Hazardous Chemotherapy Drug: Use appropriate PPE. New [...] 1 Hour Of Reconstitution - EXPIRES 9:45am 03-13-2023 Hazardous Chemotherapy Drug: Use appropriate PPE. New [...] Chemotherapy Drug: Use appropriate PPE. New Bag/Syringe/Eliseo 03/16/2023 9:09 AM EDT 146.25 mg 747.75 [...] 8 mg, INTRAVENOUS, ONCE, 1 dose, On Sofya 04/09/23 at 0800 Given 04/09/2023 8:08 AM EDT [...] Chemotherapy Drug: Use appropriate PPE. New Bag/Syringe/Eliseo che 04/10/2023 10:46 AM EDT 146.25 mg 747.75 mL/hr dexAMETHasone 10 mg/NS 50 mL (PYXIS) 10 mg ivpb (DECADRON) 10 mg, INTRAVENOUS, ONCE, 1 dose, On Thu04/10/23 at 1030, Refrigerate. New Bag/Syringe/Eliseo che 04/10/2023 10:25 AM EDT 10 mg ondansetron [...] Chemotherapy Drug: Use appropriate PPE. New Bag/Syringe/Eliseo che 04/13/2023 10:50 AM EDT 146.25 mg 747.75 mL/hr dexAMETHasone 10 mg/NS 50 mL (PYXIS) 10 mg ivpb (DECADRON) 10 mg, INTRAVENOUS, ONCE, 1 dose, On Thu04/13/23 at 1030, Refrigerate. New Bag/Syringe/Eliseo le 04/13/2023 10:33 AM EDT 10 mg ondansetron [...] Drug: Use appropriate PPE. New Bag/Syringe/Eliseo le 04/15/2023 2:52 PM EDT 146.25 mg 747.75 mL/hr dexAMETHasone 10 mg/NS 50 mL (PYXIS) 10 mg ivpb (DECADRON) 10 mg, INTRAVENOUS, ONCE, 1 dose, On Thu04/15/23 at 1430, Refrigerate. New Bag/Syringe/Eliseo le 04/15/2023 2:36 PM EDT 10 mg ondansetron [...] leukemia) Chief Complaint ATHEROEMBOLISM R PATO T PENITENTIARY LAB WORK PENITENTIARY LAB WORK SEPSIS, CELLULITIS, CHF, HYPOXEMIA, CMML SEPSIS, CELLULITIS, CHF, HYPOXEMIA, CMML SEPSIS, CELLULITIS, CHF, HYPOXEMIA, CMML SEPSIS, CELLULITIS, CHF, HYPOXEMIA, CMML SEPSIS, CELLULITIS, CHF, HYPOXEMIA, CMML 1 UNIT PRBC PENITENTIARY LAB WORK Reason for Visit Feared condition not demonstrated Acquired immunocompromised state Bacteremia due to Gram-negative bacteria Coronary artery disease Hypoxemia Pacemaker Sepsis CMML (chronic myelomonocytic leukemia) Cellulitis of right lower leg Chief Complaint Admit Date EDEMA June 18, 2025 8: 55pm Chief Complaint Admit Date EDEMA June 18, 2025 8: 55pm STAT LEFT LEG SWELLING June 19, 2025 9:49am CELLULITIS June 23, 2025 1: 25pm Chief Complaint Admit Date EDEMA June 18, 2025 8: 55pm STAT LEFT LEG SWELLING June 19, 2025 9:49am LEFT LOWER EXTREMITY CELLULITIS June 092024 4:21pm Reason for Visit Admit Date Cellulitis of left leg June 23, 2025 4:21pm Chronic anticoagulation June 23 4:21pm History of atrial fibrillation June 232024 4:21pm History of chronic myeloid leukemia Augu st 2024 4:21pm History of stroke June 23, 2025 4: 21pm Additional Source Comments Reason for Visit (unrecogniz [...] OT COMM REINTEGRATION Homer Soto MD [address] [place] [address] Rosa Abrams, OT/L Referral ID Status Reason Start Date Expiration Date V isits Requested Visits Authorized [id number] Authorized 11/09/2021 11/08/2022 99 99 Reason Comments Physical Therapy Specialty Diagnoses / Procedures Referred By Contac t Referred To Contact PHYSICAL THERAPY Diagnoses Spinal stenosis of lumbar region with neurogenic claudication Procedures CONSULT TO PHYSICAL THERAPY Laron Fortune PA-C [address] [place] [address] Sanket Solo, PT [address] [place] [address] Referral ID Status Reason Start Date Expiration Date V isits Requested Visits Authorized [id number] Authorized 02/28/2022 11/08/2022 99 99 Reason For [...] W/O CONTRAST MATERIAL Laron Fortune PA-C [address] [place] [address] Mr Imaging Referral ID Status Reason Start Date Expiration Date V isits Requested Visits Authorized [id number] Closed Auto-Generate d Referral 05/08/2022 06/07/2023 1 1 Reason Comments Recheck lab review Reason Comments Opened In Error Reason Comments Radiology XR Reason Comments Follow Up Reason Comments Consult Injection Schedule Injection Cardiac Clearance Reason Comments Home Health Orders Reason Onset Date Comments Transition Of Care 07/10/2022 [facility] Hospital Discharge 07/09/22 Reason Comments Orders HFC order contact/ap pt Reason Comments Patient Update Reason Comments CHF New Patient Reason Comments Consult Reason Comments Hospital F/U [facility] 8-26-2 2 to 07-09-22-CHF Reason Onset Date [...] Onset Date Comments Transition Of Care 09/19/2022 [facility] Pharmacy- Hospital discharge 09/18/22 Reason Comments Hospital F/U Reason Comments Wound Check Reason Comments OT EVAL Reason Comments Orders Bone Marrow Biopsy Reason Comments CHF Follow Up Reason Onset Date Comments Refill Request 10/23/2022 Specialty Diagnoses / Procedures Referred By Contac t Referred To Contact Diagnoses Macrocytic anemia Procedures DIAGNOSTIC BONE MARROW BIOPSIES & ASPIRATIONS DIAGNOSTIC BONE MARROW BIOPSY(IES) AND ASPIRATION(S) [place] [facility] [address] [place] [address] Referral ID Status Reason Start Date Expiration Date Visits Re quested Visits Authorized [id number] 1 1 Reason Comments Established Patient Reason Comments ak HFC question Reason Onset Date Comments Refill Request 11/20/2022 Reason Comments Chemotherapy Education Class Specialty Diagnoses / Procedures Referred By Contac t Referred To Contact Diagnoses 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) Procedures INSJ PRPH CTR VAD W/SUBQ PORT AGE 5 YR/> PERIPHERAL INSERTION CV CATHETER WITH PORT, OVER 4 YRS Tx Interventional Radiology [address] [place] [address] Referral ID Status Reason Start Date Expiration Date Visits Re quested Visits Authorized [id number] 1 1 Reason Comments Recheck 3 months F/U Reason Comments Chemotherapy Treatment Specialty Diagnoses / Procedures Referred By Contac t Referred To Contact Diagnoses 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) Procedures AZACITIDINE INJECTION Randa Rowell DO [address] [place] [address] Shaun Treat Richards Pob [address] [place] [address] Referral ID Status Reason Start Date Expiration Date V isits Requested Visits Authorized [id number] Authorized 12/10/2022 12/10/2023 1 99 Reason Comments Benefits Investigation Reason Onset Date Comments community monitoring outreach 01/08/2023 Cd m telephonic outreach Reason Comments Follow Up Reason Comments Permanent Pacemaker Reason Onset Date Comments community monitoring outreach 01/30/2023 Cd m telephonic outreach Reason Comments New Patient Reason Comments Escalation of Care Reason Onset Date Comments community monitoring outreach 03/19/2023 Cd m telephonic outreach Reason Onset Date Comments community monitoring outreach 03/23/2023 Cd m ED follow up Reason Comments ED 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 Reason Onset Date Comments commuity monitoring outreach 04/14/2023 Cdm telephonic outreach Reason Comments Research Consent [id number] Reason Comments 4 month office visit Lab review Specialty Diagnoses / Procedures Referred By Contac t Referred To Contact Diagnoses 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) Procedures AZACITIDINE INJECTION Baljinder Galloway, DO [address] [place] [address] [facility] [address] [place] [address] Referral ID Status Reason Start Date Expiration Date V isits Requested Visits Authorized [id number] Authorized 12/10/2022 05/04/2024 99 99 Reason Comments Chemotherapy Treatment Reason Comments Orders Reason Onset Date Comments [facility] 05/06/2023 Telephonic outre ach Reason Comments Imm/Inj immunization Reason Comments hepatitis B titer results/order Reason Comments Results DVT Reason Comments Patient Question Patient Update Update regarding dec on making regarding patient's right-sided peripheral CV catheter with port with recent diagnosis right IJ DVT. 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 Reason Onset Date Comments [facility] 07/02/2023 Telephonic outre ach Reason Onset Date Comments CD 07/29/2023 Telephonic outre ach Reason Onset Date Comments CD 09/07/2023 Telephonic outre ach Reason Comments Radiology CT Specialty Diagnoses / Procedures Referred By Contac t Referred To Contact CT IMAGING Diagnoses Unstable gait Postural dizziness Confusion and disorientation Diplopia Procedures CT BRAIN WO IVCON CT HEAD/BRAIN W/O CONTRAST MATERIAL Israel Pruitt DO [address] [place] [address] [place] [address] Referral ID Status Reason Start Date Expiration Date V isits Requested Visits Authorized [id number] Closed Auto-Generate d Referral 04/20/2023 05/19/2024 1 1 Reason Comments Patient Update Surgical site ( port removal ) Reason Onset Date Comments [facility] 10/07/2023 Telephonic outre ach Reason Onset Date Comments Refill Request 12/18/2023 Reason Comments Right arm pain Reason Onset Date Comments [facility] 01/01/2024 Telephonic outre ach Reason Comments Medicare Wellness Exam Reason Onset Date Comments [facility] 02/15/2024 Telephonic outre ach Reason Onset Date Comments [facility] 03/14/2024 Telephonic outre ach Reason Onset Date Comments [facility] 03/15/2024 Telephonic outre ach Reason Onset Date Comments [facility] 04/12/2024 Telephonic outre ach Reason Onset Date Comments [facility] 05/10/2024 Telephonic outre ach Reason Onset Date Comments [facility] 05/11/2024 Telephonic outre ach Reason Onset Date Comments Population Health Navigation Outreach 05/25/2024 Med Adherence ([place]) Reason Onset Date Comments [facility] 06/08/2024 Telephonic outre ach Reason Onset Date Comments [facility] 06/09/2024 Telephonic outre ach Reason Comments Remote Pacemaker Follow Up Reason Onset Date Comments [facility] 07/04/2024 Telephonic outre ach Reason Onset Date Comments [facility] 07/05/2024 Telephonic outre ach Reason Comments F/U 6 Month Reason Onset Date Comments [facility] 08/02/2024 Telephonic outre ach Reason Onset Date Comments [facility] 08/30/2024 Telephonic outre ach Reason Onset Date Comments [facility] 10/03/2024 Telephonic outre ach Reason Comments short term medication request Reason Comments Results Patient Update Reason Comments 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 Specialty Diagnoses / Procedures Referred By Carissa diaz Referred To Contact Diagnoses 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) Procedures DARBEPOETIN MARILU, NON-ESRD Baljinder Galloway DO [address] [place] [address] [facility] [address] [place] [address] Referral ID Status Reason Start Date Expiration Date V isits Requested Visits Authorized [id number] Authorized 11/22/2024 05/09/2025 12 12 Reason Comments Imm/Inj Specialty Diagnoses / Procedures Referred By Carissa diaz Referred To Contact Diagnoses 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) Procedures DARBEPOETIN MARILU, NON-ESRD Baljinder Galloway, DO [address] [facility] [address] [facility] [address] [place] [address] Specialty Diagnoses / Procedures Referred By Carissa diaz Referred To Contact Diagnoses 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) Procedures DARBEPOETIN MARILU, NON-ESRD Baljinder Galloway, DO [address] [place] [address] Phone: tel: fax: Hematology/Oncology [address] [place] [address] Phone: tel: fax: Reason Onset Date Comments Refill Request 12/23/2024 Reason Comments Medicare Wellness Exam Specialty Diagnoses / Procedures Referred By Carissa diaz Referred To Contact Diagnoses 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 Wou nd is bleeding and soaking through gauze Reason Comments Wound Care Recheck wounds on le ft arm Reason Comments Recheck Wound check-left arm Reason Comments ER F/U (unrecognized sect ion and content) No Status Records FoundNo Status Records FoundNo Status Records FoundNo Status Records FoundNo Status Records FoundNo Status Records FoundNo Status Records Found INFORMATION SOURCE (unrecogn ized section and content) DATE CREATED AUTHOR 08/18/2021 [facility] DATE CREATED AUTHOR AUTHOR'S ORGANIZ ATION 02/04/2022 [facility] DATE CREATED AUTHOR AUTHOR'S ORGANIZ ATION 08/10/2022 [facility] DATE CREATED AUTHOR AUTHOR'S ORGANIZ ATION 04/21/2023 [facility] DATE CREATED AUTHOR AUTHOR'S ORGANIZ ATION 06/20/2025 [facility] DATE CREATED AUTHOR AUTHOR'S ORGANIZ ATION 06/22/2025 [facility] DATE CREATED AUTHOR AUTHOR'S ORGANIZ ATION 06/23/2025 [facility] Source Comments (unrecognize d section and content) In the event this informatio n is protected by the Federal Confidentiality of Alcohol and Drug Abuse Patient Records regulations: The Federal rules restrict any use of the information to criminally investigate or prosecute any alcohol or drug abuse patient.[facility] the event this information is protected by the Federal Confidentiality of Alcohol and Drug Abuse Patient Records regulations: The Federal rules restrict any use of the information to criminally investigate or prosecute any alcohol or drug abuse patient.[facility] the event this information is protected by the Federal Confidentiality of Alcohol and Drug Abuse Patient Records regulations: The Federal rules restrict any use of the information to criminally investigate or prosecute any alcohol or drug abuse patient.[facility]In the event this information is protected by the Federal Confidentiality of Alcohol and Drug Abuse Patient Records regulations: The Federal rules restrict any use of the information to criminally investigate or prosecute any alcohol or drug abuse patient.[facility]In the event this information is protected by the Federal Confidentiality of Alcohol and Drug Abuse Patient Records regulations: The Federal rules restrict any use of the information to criminally investigate or prosecute any alcohol or drug abuse patient.[facility] HospitalIn the event this information is protected by the Federal Confidentiality of Alcohol and Drug Abuse Patient Records regulations: The Federal rules restrict any use of the information to criminally investigate or prosecute any alcohol or drug abuse patient.[facility] HospitalIn the event this information is protected by the Federal Confidentiality of Alcohol and Drug Abuse Patient Records regulations: The Federal rules restrict any use of the information to criminally investigate or prosecute any alcohol or drug abuse patient.[facility]In the event this information is protected by the Federal Confidentiality of Alcohol and Drug Abuse Patient Records regulations: The Federal rules restrict any use of the information to criminally investigate or prosecute any alcohol or drug abuse patient.[facility]In the event this information is protected by the Federal Confidentiality of Alcohol and Drug Abuse Patient Records regulations: The Federal rules restrict any use of the information to criminally investigate or prosecute any alcohol or drug abuse patient.[facility] HospitalIn the event this information is protected by the Federal Confidentiality of Alcohol and Drug Abuse Patient Records regulations: The Federal rules restrict any use of the information to criminally investigate or prosecute any alcohol or drug abuse patient.[facility] HospitalIn the event this information is protected by the Federal Confidentiality of Alcohol and Drug Abuse Patient Records regulations: The Federal rules restrict any use of the information to criminally investigate or prosecute any alcohol or drug abuse patient.[facility] HospitalIn the event this information is protected by the Federal Confidentiality of Alcohol and Drug Abuse Patient Records regulations: The Federal rules restrict any use of the information to criminally investigate or prosecute any alcohol or drug abuse patient.[facility] HospitalIn the event this information is protected by the Federal Confidentiality of Alcohol and Drug Abuse Patient Records regulations: The Federal rules restrict any use of the information to criminally investigate or prosecute any alcohol or drug abuse patient.[facility] HospitalIn the event this information is protected by the Federal Confidentiality of Alcohol and Drug Abuse Patient Records regulations: The Federal rules restrict any use of the information to criminally investigate or prosecute any alcohol or drug abuse patient.[facility] HospitalIn the event this information is protected by the Federal Confidentiality of Alcohol and Drug Abuse Patient Records regulations: The Federal rules restrict any use of the information to criminally investigate or prosecute any alcohol or drug abuse patient.[facility] HospitalIn the event this information is protected by the Federal Confidentiality of Alcohol and Drug Abuse Patient Records regulations: The Federal rules restrict any use of the information to criminally investigate or prosecute any alcohol or drug abuse patient.[facility] HospitalIn the event this information is protected by the Federal Confidentiality of Alcohol and Drug Abuse Patient Records regulations: The Federal rules restrict any use of the information to criminally investigate or prosecute any alcohol or drug abuse patient.[facility] HospitalIn the event this information is protected by the Federal Confidentiality of Alcohol and Drug Abuse Patient Records regulations: The Federal rules restrict any use of the information to criminally investigate or prosecute any alcohol or drug abuse patient.[facility] HospitalIn the event this information is protected by the Federal Confidentiality of Alcohol and Drug Abuse Patient Records regulations: The Federal rules restrict any use of the information to criminally investigate or prosecute any alcohol or drug abuse patient.[facility] HospitalIn the event this information is protected by the Federal Confidentiality of Alcohol and Drug Abuse Patient Records regulations: The Federal rules restrict any use of the information to criminally investigate or prosecute any alcohol or drug abuse patient.[facility] HospitalIn the event this information is protected by the Federal Confidentiality of Alcohol and Drug Abuse Patient Records regulations: The Federal rules restrict any use of the information to criminally investigate or prosecute any alcohol or drug abuse patient.[facility] HospitalIn the event this information is protected by the Federal Confidentiality of Alcohol and Drug Abuse Patient Records regulations: The Federal rules restrict any use of the information to criminally investigate or prosecute any alcohol or drug abuse patient.[facility] HospitalIn the event this information is protected by the Federal Confidentiality of Alcohol and Drug Abuse Patient Records regulations: The Federal rules restrict any use of the information to criminally investigate or prosecute any alcohol or drug abuse patient.[facility] HospitalIn the event this information is protected by the Federal Confidentiality of Alcohol and Drug Abuse Patient Records regulations: The Federal rules restrict any use of the information to criminally investigate or prosecute any alcohol or drug abuse patient.[facility] HospitalIn the event this information is protected by the Federal Confidentiality of Alcohol and Drug Abuse Patient Records regulations: The Federal rules restrict any use of the information to criminally investigate or prosecute any alcohol or drug abuse patient.[facility] HospitalIn the event this information is protected by the Federal Confidentiality of Alcohol and Drug Abuse Patient Records regulations: The Federal rules restrict any use of the information to criminally investigate or prosecute any alcohol or drug abuse patient.[facility] HospitalIn the event this information is protected by the Federal Confidentiality of Alcohol and Drug Abuse Patient Records regulations: The Federal rules restrict any use of the information to criminally investigate or prosecute any alcohol or drug abuse patient.[facility] HospitalIn the event this information is protected by the Federal Confidentiality of Alcohol and Drug Abuse Patient Records regulations: The Federal rules restrict any use of the information to criminally investigate or prosecute any alcohol or drug abuse patient.[facility] HospitalIn the event this information is protected by the Federal Confidentiality of Alcohol and Drug Abuse Patient Records regulations: The Federal rules restrict any use of the information to criminally investigate or prosecute any alcohol or drug abuse patient.[facility] HospitalIn the event this information is protected by the Federal Confidentiality of Alcohol and Drug Abuse Patient Records regulations: The Federal rules restrict any use of the information to criminally investigate or prosecute any alcohol or drug abuse patient.[facility] HospitalIn the event this information is protected by the Federal Confidentiality of Alcohol and Drug Abuse Patient Records regulations: The Federal rules restrict any use of the information to criminally investigate or prosecute any alcohol or drug abuse patient.[facility] HospitalIn the event this information is protected by the Federal Confidentiality of Alcohol and Drug Abuse Patient Records regulations: The Federal rules restrict any use of the information to criminally investigate or prosecute any alcohol or drug abuse patient.[facility] HospitalIn the event this information is protected by the Federal Confidentiality of Alcohol and Drug Abuse Patient Records regulations: The Federal rules restrict any use of the information to criminally investigate or prosecute any alcohol or drug abuse patient.[facility] HospitalIn the event this information is protected by the Federal Confidentiality of Alcohol and Drug Abuse Patient Records regulations: The Federal rules restrict any use of the information to criminally investigate or prosecute any alcohol or drug abuse patient.[facility] HospitalIn the event this information is protected by the Federal Confidentiality of Alcohol and Drug Abuse Patient Records regulations: The Federal rules restrict any use of the information to criminally investigate or prosecute any alcohol or drug abuse patient.[facility] HospitalIn the event this information is protected by the Federal Confidentiality of Alcohol and Drug Abuse Patient Records regulations: The Federal rules restrict any use of the information to criminally investigate or prosecute any alcohol or drug abuse patient.[facility] HospitalIn the event this information is protected by the Federal Confidentiality of Alcohol and Drug Abuse Patient Records regulations: The Federal rules restrict any use of the information to criminally investigate or prosecute any alcohol or drug abuse patient.[facility] HospitalIn the event this information is protected by the Federal Confidentiality of Alcohol and Drug Abuse Patient Records regulations: The Federal rules restrict any use of the information to criminally investigate or prosecute any alcohol or drug abuse patient.[facility] HospitalIn the event this information is protected by the Federal Confidentiality of Alcohol and Drug Abuse Patient Records regulations: The Federal rules restrict any use of the information to criminally investigate or prosecute any alcohol or drug abuse patient.[facility] HospitalIn the event this information is protected by the Federal Confidentiality of Alcohol and Drug Abuse Patient Records regulations: The Federal rules restrict any use of the information to criminally investigate or prosecute any alcohol or drug abuse patient.[facility] HospitalIn the event this information is protected by the Federal Confidentiality of Alcohol and Drug Abuse Patient Records regulations: The Federal rules restrict any use of the information to criminally investigate or prosecute any alcohol or drug abuse patient.[facility] HospitalIn the event this information is protected by the Federal Confidentiality of Alcohol and Drug Abuse Patient Records regulations: The Federal rules restrict any use of the information to criminally investigate or prosecute any alcohol or drug abuse patient.[facility] HospitalIn the event this information is protected by the Federal Confidentiality of Alcohol and Drug Abuse Patient Records regulations: The Federal rules restrict any use of the information to criminally investigate or prosecute any alcohol or drug abuse patient.[facility] HospitalIn the event this information is protected by the Federal Confidentiality of Alcohol and Drug Abuse Patient Records regulations: The Federal rules restrict any use of the information to criminally investigate or prosecute any alcohol or drug abuse patient.[facility] HospitalIn the event this information is protected by the Federal Confidentiality of Alcohol and Drug Abuse Patient Records regulations: The Federal rules restrict any use of the information to criminally investigate or prosecute any alcohol or drug abuse patient.[facility] HospitalIn the event this information is protected by the Federal Confidentiality of Alcohol and Drug Abuse Patient Records regulations: The Federal rules restrict any use of the information to criminally investigate or prosecute any alcohol or drug abuse patient.[facility] HospitalIn the event this information is protected by the Federal Confidentiality of Alcohol and Drug Abuse Patient Records regulations: The Federal rules restrict any use of the information to criminally investigate or prosecute any alcohol or drug abuse patient.[facility] HospitalIn the event this information is protected by the Federal Confidentiality of Alcohol and Drug Abuse Patient Records regulations: The Federal rules restrict any use of the information to criminally investigate or prosecute any alcohol or drug abuse patient.[facility] HospitalIn the event this information is protected by the Federal Confidentiality of Alcohol and Drug Abuse Patient Records regulations: The Federal rules restrict any use of the information to criminally investigate or prosecute any alcohol or drug abuse patient.[facility] HospitalIn the event this information is protected by the Federal Confidentiality of Alcohol and Drug Abuse Patient Records regulations: The Federal rules restrict any use of the information to criminally investigate or prosecute any alcohol or drug abuse patient.[facility] HospitalIn the event this information is protected by the Federal Confidentiality of Alcohol and Drug Abuse Patient Records regulations: The Federal rules restrict any use of the information to criminally investigate or prosecute any alcohol or drug abuse patient.[facility] HospitalIn the event this information is protected by the Federal Confidentiality of Alcohol and Drug Abuse Patient Records regulations: The Federal rules restrict any use of the information to criminally investigate or prosecute any alcohol or drug abuse patient.[facility] HospitalIn the event this information is protected by the Federal Confidentiality of Alcohol and Drug Abuse Patient Records regulations: The Federal rules restrict any use of the information to criminally investigate or prosecute any alcohol or drug abuse patient.[facility] HospitalIn the event this information is protected by the Federal Confidentiality of Alcohol and Drug Abuse Patient Records regulations: The Federal rules restrict any use of the information to criminally investigate or prosecute any alcohol or drug abuse patient.[facility] HospitalIn the event this information is protected by the Federal Confidentiality of Alcohol and Drug Abuse Patient Records regulations: The Federal rules restrict any use of the information to criminally investigate or prosecute any alcohol or drug abuse patient.[facility] HospitalIn the event this information is protected by the Federal Confidentiality of Alcohol and Drug Abuse Patient Records regulations: The Federal rules restrict any use of the information to criminally investigate or prosecute any alcohol or drug abuse patient.[facility] HospitalIn the event this information is protected by the Federal Confidentiality of Alcohol and Drug Abuse Patient Records regulations: The Federal rules restrict any use of the information to criminally investigate or prosecute any alcohol or drug abuse patient.[facility] HospitalIn the event this information is protected by the Federal Confidentiality of Alcohol and Drug Abuse Patient Records regulations: The Federal rules restrict any use of the information to criminally investigate or prosecute any alcohol or drug abuse patient.[facility] HospitalIn the event this information is protected by the Federal Confidentiality of Alcohol and Drug Abuse Patient Records regulations: The Federal rules restrict any use of the information to criminally investigate or prosecute any alcohol or drug abuse patient.[facility] HospitalIn the event this information is protected by the Federal Confidentiality of Alcohol and Drug Abuse Patient Records regulations: The Federal rules restrict any use of the information to criminally investigate or prosecute any alcohol or drug abuse patient.[facility] HospitalIn the event this information is protected by the Federal Confidentiality of Alcohol and Drug Abuse Patient Records regulations: The Federal rules restrict any use of the information to criminally investigate or prosecute any alcohol or drug abuse patient.[facility] HospitalIn the event this information is protected by the Federal Confidentiality of Alcohol and Drug Abuse Patient Records regulations: The Federal rules restrict any use of the information to criminally investigate or prosecute any alcohol or drug abuse patient.[facility] HospitalIn the event this information is protected by the Federal Confidentiality of Alcohol and Drug Abuse Patient Records regulations: The Federal rules restrict any use of the information to criminally investigate or prosecute any alcohol or drug abuse patient.[facility] HospitalIn the event this information is protected by the Federal Confidentiality of Alcohol and Drug Abuse Patient Records regulations: The Federal rules restrict any use of the information to criminally investigate or prosecute any alcohol or drug abuse patient.[facility] HospitalIn the event this information is protected by the Federal Confidentiality of Alcohol and Drug Abuse Patient Records regulations: The Federal rules restrict any use of the information to criminally investigate or prosecute any alcohol or drug abuse patient.[facility] HospitalIn the event this information is protected by the Federal Confidentiality of Alcohol and Drug Abuse Patient Records regulations: The Federal rules restrict any use of the information to criminally investigate or prosecute any alcohol or drug abuse patient.[facility] HospitalIn the event this information is protected by the Federal Confidentiality of Alcohol and Drug Abuse Patient Records regulations: The Federal rules restrict any use of the information to criminally investigate or prosecute any alcohol or drug abuse patient.[facility] HospitalIn the event this information is protected by the Federal Confidentiality of Alcohol and Drug Abuse Patient Records regulations: The Federal rules restrict any use of the information to criminally investigate or prosecute any alcohol or drug abuse patient.[facility] HospitalIn the event this information is protected by the Federal Confidentiality of Alcohol and Drug Abuse Patient Records regulations: The Federal rules restrict any use of the information to criminally investigate or prosecute any alcohol or drug abuse patient.[facility] HospitalIn the event this information is protected by the Federal Confidentiality of Alcohol and Drug Abuse Patient Records regulations: The Federal rules restrict any use of the information to criminally investigate or prosecute any alcohol or drug abuse patient.[facility] HospitalIn the event this information is protected by the Federal Confidentiality of Alcohol and Drug Abuse Patient Records regulations: The Federal rules restrict any use of the information to criminally investigate or prosecute any alcohol or drug abuse patient.[facility] HospitalIn the event this information is protected by the Federal Confidentiality of Alcohol and Drug Abuse Patient Records regulations: The Federal rules restrict any use of the information to criminally investigate or prosecute any alcohol or drug abuse patient.[facility] HospitalIn the event this information is protected by the Federal Confidentiality of Alcohol and Drug Abuse Patient Records regulations: The Federal rules restrict any use of the information to criminally investigate or prosecute any alcohol or drug abuse patient.[facility] HospitalIn the event this information is protected by the Federal Confidentiality of Alcohol and Drug Abuse Patient Records regulations: The Federal rules restrict any use of the information to criminally investigate or prosecute any alcohol or drug abuse patient.[facility] HospitalIn the event this information is protected by the Federal Confidentiality of Alcohol and Drug Abuse Patient Records regulations: The Federal rules restrict any use of the information to criminally investigate or prosecute any alcohol or drug abuse patient.[facility]In the event this information is protected by the Federal Confidentiality of Alcohol and Drug Abuse Patient Records regulations: The Federal rules restrict any use of the information to criminally investigate or prosecute any alcohol or drug abuse patient.[facility]In the event this information is protected by the Federal Confidentiality of Alcohol and Drug Abuse Patient Records regulations: The Federal rules restrict any use of the information to criminally investigate or prosecute any alcohol or drug abuse patient.[facility]In the event this information is protected by the Federal Confidentiality of Alcohol and Drug Abuse Patient Records regulations: The Federal rules restrict any use of the information to criminally investigate or prosecute any alcohol or drug abuse patient.[facility]In the event this information is protected by the Federal Confidentiality of Alcohol and Drug Abuse Patient Records regulations: The Federal rules restrict any use of the information to criminally investigate or prosecute any alcohol or drug abuse patient.[facility]In the event this information is protected by the Federal Confidentiality of Alcohol and Drug Abuse Patient Records regulations: The Federal rules restrict any use of the information to criminally investigate or prosecute any alcohol or drug abuse patient.[facility]In the event this information is protected by the Federal Confidentiality of Alcohol and Drug Abuse Patient Records regulations: The Federal rules restrict any use of the information to criminally investigate or prosecute any alcohol or drug abuse patient.[facility]In the event this information is protected by the Federal Confidentiality of Alcohol and Drug Abuse Patient Records regulations: The Federal rules restrict any use of the information to criminally investigate or prosecute any alcohol or drug abuse patient.[facility]In the event this information is protected by the Federal Confidentiality of Alcohol and Drug Abuse Patient Records regulations: The Federal rules restrict any use of the information to criminally investigate or prosecute any alcohol or drug abuse patient.[facility]In the event this information is protected by the Federal Confidentiality of Alcohol and Drug Abuse Patient Records regulations: The Federal rules restrict any use of the information to criminally investigate or prosecute any alcohol or drug abuse patient.[facility]In the event this information is protected by the Federal Confidentiality of Alcohol and Drug Abuse Patient Records regulations: The Federal rules restrict any use of the information to criminally investigate or prosecute any alcohol or drug abuse patient.[facility]In the event this information is protected by the Federal Confidentiality of Alcohol and Drug Abuse Patient Records regulations: The Federal rules restrict any use of the information to criminally investigate or prosecute any alcohol or drug abuse patient.[facility]In the event this information is protected by the Federal Confidentiality of Alcohol and Drug Abuse Patient Records regulations: The Federal rules restrict any use of the information to criminally investigate or prosecute any alcohol or drug abuse patient.[facility]In the event this information is protected by the Federal Confidentiality of Alcohol and Drug Abuse Patient Records regulations: The Federal rules restrict any use of the information to criminally investigate or prosecute any alcohol or drug abuse patient.[facility]In the event this information is protected by the Federal Confidentiality of Alcohol and Drug Abuse Patient Records regulations: The Federal rules restrict any use of the information to criminally investigate or prosecute any alcohol or drug abuse patient.[facility]In the event this information is protected by the Federal Confidentiality of Alcohol and Drug Abuse Patient Records regulations: The Federal rules restrict any use of the information to criminally investigate or prosecute any alcohol or drug abuse patient.[facility]In the event this information is protected by the Federal Confidentiality of Alcohol and Drug Abuse Patient Records regulations: The Federal rules restrict any use of the information to criminally investigate or prosecute any alcohol or drug abuse patient.[facility]In the event this information is protected by the Federal Confidentiality of Alcohol and Drug Abuse Patient Records regulations: The Federal rules restrict any use of the information to criminally investigate or prosecute any alcohol or drug abuse patient.[facility] HospitalIn the event this information is protected by the Federal Confidentiality of Alcohol and Drug Abuse Patient Records regulations: The Federal rules restrict any use of the information to criminally investigate or prosecute any alcohol or drug abuse patient.[facility]In the event this information is protected by the Federal Confidentiality of Alcohol and Drug Abuse Patient Records regulations: The Federal rules restrict any use of the information to criminally investigate or prosecute any alcohol or drug abuse patient.[facility]In the event this information is protected by the Federal Confidentiality of Alcohol and Drug Abuse Patient Records regulations: The Federal rules restrict any use of the information to criminally investigate or prosecute any alcohol or drug abuse patient.[facility]In the event this information is protected by the Federal Confidentiality of Alcohol and Drug Abuse Patient Records regulations: The Federal rules restrict any use of the information to criminally investigate or prosecute any alcohol or drug abuse patient.[facility] HospitalIn the event this information is protected by the Federal Confidentiality of Alcohol and Drug Abuse Patient Records regulations: The Federal rules restrict any use of the information to criminally investigate or prosecute any alcohol or drug abuse patient.[facility]In the event this information is protected by the Federal Confidentiality of Alcohol and Drug Abuse Patient Records regulations: The Federal rules restrict any use of the information to criminally investigate or prosecute any alcohol or drug abuse patient.[facility] HospitalIn the event this information is protected by the Federal Confidentiality of Alcohol and Drug Abuse Patient Records regulations: The Federal rules restrict any use of the information to criminally investigate or prosecute any alcohol or drug abuse patient.[facility]In the event this information is protected by the Federal Confidentiality of Alcohol and Drug Abuse Patient Records regulations: The Federal rules restrict any use of the information to criminally investigate or prosecute any alcohol or drug abuse patient.[facility]In the event this information is protected by the Federal Confidentiality of Alcohol and Drug Abuse Patient Records regulations: The Federal rules restrict any use of the information to criminally investigate or prosecute any alcohol or drug abuse patient.[facility] HospitalIn the event this information is protected by the Federal Confidentiality of Alcohol and Drug Abuse Patient Records regulations: The Federal rules restrict any use of the information to criminally investigate or prosecute any alcohol or drug abuse patient.[facility] HospitalIn the event this information is protected by the Federal Confidentiality of Alcohol and Drug Abuse Patient Records regulations: The Federal rules restrict any use of the information to criminally investigate or prosecute any alcohol or drug abuse patient.[facility] HospitalIn the event this information is protected by the Federal Confidentiality of Alcohol and Drug Abuse Patient Records regulations: The Federal rules restrict any use of the information to criminally investigate or prosecute any alcohol or drug abuse patient.[facility]In the event this information is protected by the Federal Confidentiality of Alcohol and Drug Abuse Patient Records regulations: The Federal rules restrict any use of the information to criminally investigate or prosecute any alcohol or drug abuse patient.[facility]In the event this information is protected by the Federal Confidentiality of Alcohol and Drug Abuse Patient Records regulations: The Federal rules restrict any use of the information to criminally investigate or prosecute any alcohol or drug abuse patient.[facility]In the event this information is protected by the Federal Confidentiality of Alcohol and Drug Abuse Patient Records regulations: The Federal rules restrict any use of the information to criminally investigate or prosecute any alcohol or drug abuse patient.[facility]In the event this information is protected by the Federal Confidentiality of Alcohol and Drug Abuse Patient Records regulations: The Federal rules restrict any use of the information to criminally investigate or prosecute any alcohol or drug abuse patient.[facility]In the event this information is protected by the Federal Confidentiality of Alcohol and Drug Abuse Patient Records regulations: The Federal rules restrict any use of the information to criminally investigate or prosecute any alcohol or drug abuse patient.[facility] HospitalIn the event this information is protected by the Federal Confidentiality of Alcohol and Drug Abuse Patient Records regulations: The Federal rules restrict any use of the information to criminally investigate or prosecute any alcohol or drug abuse patient.[facility]In the event this information is protected by the Federal Confidentiality of Alcohol and Drug Abuse Patient Records regulations: The Federal rules restrict any use of the information to criminally investigate or prosecute any alcohol or drug abuse patient.[facility] HospitalIn the event this information is protected by the Federal Confidentiality of Alcohol and Drug Abuse Patient Records regulations: The Federal rules restrict any use of the information to criminally investigate or prosecute any alcohol or drug abuse patient.[facility] HospitalIn the event this information is protected by the Federal Confidentiality of Alcohol and Drug Abuse Patient Records regulations: The Federal rules restrict any use of the information to criminally investigate or prosecute any alcohol or drug abuse patient.[facility] HospitalIn the event this information is protected by the Federal Confidentiality of Alcohol and Drug Abuse Patient Records regulations: The Federal rules restrict any use of the information to criminally investigate or prosecute any alcohol or drug abuse patient.[facility] HospitalIn the event this information is protected by the Federal Confidentiality of Alcohol and Drug Abuse Patient Records regulations: The Federal rules restrict any use of the information to criminally investigate or prosecute any alcohol or drug abuse patient.[facility] HospitalIn the event this information is protected by the Federal Confidentiality of Alcohol and Drug Abuse Patient Records regulations: The Federal rules restrict any use of the information to criminally investigate or prosecute any alcohol or drug abuse patient.[facility] HospitalIn the event this information is protected by the Federal Confidentiality of Alcohol and Drug Abuse Patient Records regulations: The Federal rules restrict any use of the information to criminally investigate or prosecute any alcohol or drug abuse patient.[facility] HospitalIn the event this information is protected by the Federal Confidentiality of Alcohol and Drug Abuse Patient Records regulations: The Federal rules restrict any use of the information to criminally investigate or prosecute any alcohol or drug abuse patient.[facility] HospitalIn the event this information is protected by the Federal Confidentiality of Alcohol and Drug Abuse Patient Records regulations: The Federal rules restrict any use of the information to criminally investigate or prosecute any alcohol or drug abuse patient.[facility] HospitalIn the event this information is protected by the Federal Confidentiality of Alcohol and Drug Abuse Patient Records regulations: The Federal rules restrict any use of the information to criminally investigate or prosecute any alcohol or drug abuse patient.[facility] HospitalIn the event this information is protected by the Federal Confidentiality of Alcohol and Drug Abuse Patient Records regulations: The Federal rules restrict any use of the information to criminally investigate or prosecute any alcohol or drug abuse patient.[facility] HospitalIn the event this information is protected by the Federal Confidentiality of Alcohol and Drug Abuse Patient Records regulations: The Federal rules restrict any use of the information to criminally investigate or prosecute any alcohol or drug abuse patient.[facility] HospitalIn the event this information is protected by the Federal Confidentiality of Alcohol and Drug Abuse Patient Records regulations: The Federal rules restrict any use of the information to criminally investigate or prosecute any alcohol or drug abuse patient.[facility]In the event this information is protected by the Federal Confidentiality of Alcohol and Drug Abuse Patient Records regulations: The Federal rules restrict any use of the information to criminally investigate or prosecute any alcohol or drug abuse patient.[facility] HospitalIn the event this information is protected by the Federal Confidentiality of Alcohol and Drug Abuse Patient Records regulations: The Federal rules restrict any use of the information to criminally investigate or prosecute any alcohol or drug abuse patient.[facility]In the event this information is protected by the Federal Confidentiality of Alcohol and Drug Abuse Patient Records regulations: The Federal rules restrict any use of the information to criminally investigate or prosecute any alcohol or drug abuse patient.[facility] HospitalIn the event this information is protected by the Federal Confidentiality of Alcohol and Drug Abuse Patient Records regulations: The Federal rules restrict any use of the information to criminally investigate or prosecute any alcohol or drug abuse patient.[facility] HospitalIn the event this information is protected by the Federal Confidentiality of Alcohol and Drug Abuse Patient Records regulations: The Federal rules restrict any use of the information to criminally investigate or prosecute any alcohol or drug abuse patient.[facility] HospitalIn the event this information is protected by the Federal Confidentiality of Alcohol and Drug Abuse Patient Records regulations: The Federal rules restrict any use of the information to criminally investigate or prosecute any alcohol or drug abuse patient.[facility]In the event this information is protected by the Federal Confidentiality of Alcohol and Drug Abuse Patient Records regulations: The Federal rules restrict any use of the information to criminally investigate or prosecute any alcohol or drug abuse patient.[facility]In the event this information is protected by the Federal Confidentiality of Alcohol and Drug Abuse Patient Records regulations: The Federal rules restrict any use of the information to criminally investigate or prosecute any alcohol or drug abuse patient.[facility]In the event this information is protected by the Federal Confidentiality of Alcohol and Drug Abuse Patient Records regulations: The Federal rules restrict any use of the information to criminally investigate or prosecute any alcohol or drug abuse patient.[facility]In the event this information is protected by the Federal Confidentiality of Alcohol and Drug Abuse Patient Records regulations: The Federal rules restrict any use of the information to criminally investigate or prosecute any alcohol or drug abuse patient.[facility]In the event this information is protected by the Federal Confidentiality of Alcohol and Drug Abuse Patient Records regulations: The Federal rules restrict any use of the information to criminally investigate or prosecute any alcohol or drug abuse patient.[facility]In the event this information is protected by the Federal Confidentiality of Alcohol and Drug Abuse Patient Records regulations: The Federal rules restrict any use of the information to criminally investigate or prosecute any alcohol or drug abuse patient.[facility]In the event this information is protected by the Federal Confidentiality of Alcohol and Drug Abuse Patient Records regulations: The Federal rules restrict any use of the information to criminally investigate or prosecute any alcohol or drug abuse patient.[facility]In the event this information is protected by the Federal Confidentiality of Alcohol and Drug Abuse Patient Records regulations: The Federal rules restrict any use of the information to criminally investigate or prosecute any alcohol or drug abuse patient.[facility]In the event this information is protected by the Federal Confidentiality of Alcohol and Drug Abuse Patient Records regulations: The Federal rules restrict any use of the information to criminally investigate or prosecute any alcohol or drug abuse patient.[facility]In the event this information is protected by the Federal Confidentiality of Alcohol and Drug Abuse Patient Records regulations: The Federal rules restrict any use of the information to criminally investigate or prosecute any alcohol or drug abuse patient.[facility]In the event this information is protected by the Federal Confidentiality of Alcohol and Drug Abuse Patient Records regulations: The Federal rules restrict any use of the information to criminally investigate or prosecute any alcohol or drug abuse patient.[facility]In the event this information is protected by the Federal Confidentiality of Alcohol and Drug Abuse Patient Records regulations: The Federal rules restrict any use of the information to criminally investigate or prosecute any alcohol or drug abuse patient.[facility]In the event this information is protected by the Federal Confidentiality of Alcohol and Drug Abuse Patient Records regulations: The Federal rules restrict any use of the information to criminally investigate or prosecute any alcohol or drug abuse patient.[facility]In the event this information is protected by the Federal Confidentiality of Alcohol and Drug Abuse Patient Records regulations: The Federal rules restrict any use of the information to criminally investigate or prosecute any alcohol or drug abuse patient.[facility]In the event this information is protected by the Federal Confidentiality of Alcohol and Drug Abuse Patient Records regulations: The Federal rules restrict any use of the information to criminally investigate or prosecute any alcohol or drug abuse patient.[facility]In the event this information is protected by the Federal Confidentiality of Alcohol and Drug Abuse Patient Records regulations: The Federal rules restrict any use of the information to criminally investigate or prosecute any alcohol or drug abuse patient.[facility]In the event this information is protected by the Federal Confidentiality of Alcohol and Drug Abuse Patient Records regulations: The Federal rules restrict any use of the information to criminally investigate or prosecute any alcohol or drug abuse patient.[facility]In the event this information is protected by the Federal Confidentiality of Alcohol and Drug Abuse Patient Records regulations: The Federal rules restrict any use of the information to criminally investigate or prosecute any alcohol or drug abuse patient.[facility]In the event this information is protected by the Federal Confidentiality of Alcohol and Drug Abuse Patient Records regulations: The Federal rules restrict any use of the information to criminally investigate or prosecute any alcohol or drug abuse patient.[facility]In the event this information is protected by the Federal Confidentiality of Alcohol and Drug Abuse Patient Records regulations: The Federal rules restrict any use of the information to criminally investigate or prosecute any alcohol or drug abuse patient.[facility]In the event this information is protected by the Federal Confidentiality of Alcohol and Drug Abuse Patient Records regulations: The Federal rules restrict any use of the information to criminally investigate or prosecute any alcohol or drug abuse patient.[facility]In the event this information is protected by the Federal Confidentiality of Alcohol and Drug Abuse Patient Records regulations: The Federal rules restrict any use of the information to criminally investigate or prosecute any alcohol or drug abuse patient.[facility]In the event this information is protected by the Federal Confidentiality of Alcohol and Drug Abuse Patient Records regulations: The Federal rules restrict any use of the information to criminally investigate or prosecute any alcohol or drug abuse patient.[facility]In the event this information is protected by the Federal Confidentiality of Alcohol and Drug Abuse Patient Records regulations: The Federal rules restrict any use of the information to criminally investigate or prosecute any alcohol or drug abuse patient.[facility]In the event this information is protected by the Federal Confidentiality of Alcohol and Drug Abuse Patient Records regulations: The Federal rules restrict any use of the information to criminally investigate or prosecute any alcohol or drug abuse patient.[facility]In the event this information is protected by the Federal Confidentiality of Alcohol and Drug Abuse Patient Records regulations: The Federal rules restrict any use of the information to criminally investigate or prosecute any alcohol or drug abuse patient.[facility]In the event this information is protected by the Federal Confidentiality of Alcohol and Drug Abuse Patient Records regulations: The Federal rules restrict any use of the information to criminally investigate or prosecute any alcohol or drug abuse patient.[facility]In the event this information is protected by the Federal Confidentiality of Alcohol and Drug Abuse Patient Records regulations: The Federal rules restrict any use of the information to criminally investigate or prosecute any alcohol or drug abuse patient.[facility]In the event this information is protected by the Federal Confidentiality of Alcohol and Drug Abuse Patient Records regulations: The Federal rules restrict any use of the information to criminally investigate or prosecute any alcohol or drug abuse patient.[facility]In the event this information is protected by the Federal Confidentiality of Alcohol and Drug Abuse Patient Records regulations: The Federal rules restrict any use of the information to criminally investigate or prosecute any alcohol or drug abuse patient.[facility]In the event this information is protected by the Federal Confidentiality of Alcohol and Drug Abuse Patient Records regulations: The Federal rules restrict any use of the information to criminally investigate or prosecute any alcohol or drug abuse patient.[facility] HospitalIn the event this information is protected by the Federal Confidentiality of Alcohol and Drug Abuse Patient Records regulations: The Federal rules restrict any use of the information to criminally investigate or prosecute any alcohol or drug abuse patient.[facility]In the event this information is protected by the Federal Confidentiality of Alcohol and Drug Abuse Patient Records regulations: The Federal rules restrict any use of the information to criminally investigate or prosecute any alcohol or drug abuse patient.[facility]In the event this information is protected by the Federal Confidentiality of Alcohol and Drug Abuse Patient Records regulations: The Federal rules restrict any use of the information to criminally investigate or prosecute any alcohol or drug abuse patient.[facility]In the event this information is protected by the Federal Confidentiality of Alcohol and Drug Abuse Patient Records regulations: The Federal rules restrict any use of the information to criminally investigate or prosecute any alcohol or drug abuse patient.[facility] HospitalIn the event this information is protected by the Federal Confidentiality of Alcohol and Drug Abuse Patient Records regulations: The Federal rules restrict any use of the information to criminally investigate or prosecute any alcohol or drug abuse patient.[facility] HospitalIn the event this information is protected by the Federal Confidentiality of Alcohol and Drug Abuse Patient Records regulations: The Federal rules restrict any use of the information to criminally investigate or prosecute any alcohol or drug abuse patient.[facility] HospitalIn the event this information is protected by the Federal Confidentiality of Alcohol and Drug Abuse Patient Records regulations: The Federal rules restrict any use of the information to criminally investigate or prosecute any alcohol or drug abuse patient.[facility] HospitalIn the event this information is protected by the Federal Confidentiality of Alcohol and Drug Abuse Patient Records regulations: The Federal rules restrict any use of the information to criminally investigate or prosecute any alcohol or drug abuse patient.[facility] HospitalIn the event this information is protected by the Federal Confidentiality of Alcohol and Drug Abuse Patient Records regulations: The Federal rules restrict any use of the information to criminally investigate or prosecute any alcohol or drug abuse patient.[facility] HospitalIn the event this information is protected by the Federal Confidentiality of Alcohol and Drug Abuse Patient Records regulations: The Federal rules restrict any use of the information to criminally investigate or prosecute any alcohol or drug abuse patient.[facility] HospitalIn the event this information is protected by the Federal Confidentiality of Alcohol and Drug Abuse Patient Records regulations: The Federal rules restrict any use of the information to criminally investigate or prosecute any alcohol or drug abuse patient.[facility] HospitalIn the event this information is protected by the Federal Confidentiality of Alcohol and Drug Abuse Patient Records regulations: The Federal rules restrict any use of the information to criminally investigate or prosecute any alcohol or drug abuse patient.[facility] HospitalIn the event this information is protected by the Federal Confidentiality of Alcohol and Drug Abuse Patient Records regulations: The Federal rules restrict any use of the information to criminally investigate or prosecute any alcohol or drug abuse patient.[facility] HospitalIn the event this information is protected by the Federal Confidentiality of Alcohol and Drug Abuse Patient Records regulations: The Federal rules restrict any use of the information to criminally investigate or prosecute any alcohol or drug abuse patient.[facility] HospitalIn the event this information is protected by the Federal Confidentiality of Alcohol and Drug Abuse Patient Records regulations: The Federal rules restrict any use of the information to criminally investigate or prosecute any alcohol or drug abuse patient.[facility] HospitalIn the event this information is protected by the Federal Confidentiality of Alcohol and Drug Abuse Patient Records regulations: The Federal rules restrict any use of the information to criminally investigate or prosecute any alcohol or drug abuse patient.[facility] HospitalIn the event this information is protected by the Federal Confidentiality of Alcohol and Drug Abuse Patient Records regulations: The Federal rules restrict any use of the information to criminally investigate or prosecute any alcohol or drug abuse patient.[facility] HospitalIn the event this information is protected by the Federal Confidentiality of Alcohol and Drug Abuse Patient Records regulations: The Federal rules restrict any use of the information to criminally investigate or prosecute any alcohol or drug abuse patient.[facility] HospitalIn the event this information is protected by the Federal Confidentiality of Alcohol and Drug Abuse Patient Records regulations: The Federal rules restrict any use of the information to criminally investigate or prosecute any alcohol or drug abuse patient.[facility] HospitalIn the event this information is protected by the Federal Confidentiality of Alcohol and Drug Abuse Patient Records regulations: The Federal rules restrict any use of the information to criminally investigate or prosecute any alcohol or drug abuse patient.[facility] HospitalIn the event this information is protected by the Federal Confidentiality of Alcohol and Drug Abuse Patient Records regulations: The Federal rules restrict any use of the information to criminally investigate or prosecute any alcohol or drug abuse patient.[facility] HospitalIn the event this information is protected by the Federal Confidentiality of Alcohol and Drug Abuse Patient Records regulations: The Federal rules restrict any use of the information to criminally investigate or prosecute any alcohol or drug abuse patient.[facility] HospitalIn the event this information is protected by the Federal Confidentiality of Alcohol and Drug Abuse Patient Records regulations: The Federal rules restrict any use of the information to criminally investigate or prosecute any alcohol or drug abuse patient.[facility] HospitalIn the event this information is protected by the Federal Confidentiality of Alcohol and Drug Abuse Patient Records regulations: The Federal rules restrict any use of the information to criminally investigate or prosecute any alcohol or drug abuse patient.[facility] HospitalIn the event this information is protected by the Federal Confidentiality of Alcohol and Drug Abuse Patient Records regulations: The Federal rules restrict any use of the information to criminally investigate or prosecute any alcohol or drug abuse patient.[facility] HospitalIn the event this information is protected by the Federal Confidentiality of Alcohol and Drug Abuse Patient Records regulations: The Federal rules restrict any use of the information to criminally investigate or prosecute any alcohol or drug abuse patient.[facility] HospitalIn the event this information is protected by the Federal Confidentiality of Alcohol and Drug Abuse Patient Records regulations: The Federal rules restrict any use of the information to criminally investigate or prosecute any alcohol or drug abuse patient.[facility] HospitalIn the event this information is protected by the Federal Confidentiality of Alcohol and Drug Abuse Patient Records regulations: The Federal rules restrict any use of the information to criminally investigate or prosecute any alcohol or drug abuse patient.[facility] HospitalIn the event this information is protected by the Federal Confidentiality of Alcohol and Drug Abuse Patient Records regulations: The Federal rules restrict any use of the information to criminally investigate or prosecute any alcohol or drug abuse patient.[facility] HospitalIn the event this information is protected by the Federal Confidentiality of Alcohol and Drug Abuse Patient Records regulations: The Federal rules restrict any use of the information to criminally investigate or prosecute any alcohol or drug abuse patient.[facility] HospitalIn the event this information is protected by the Federal Confidentiality of Alcohol and Drug Abuse Patient Records regulations: The Federal rules restrict any use of the information to criminally investigate or prosecute any alcohol or drug abuse patient.[facility] HospitalIn the event this information is protected by the Federal Confidentiality of Alcohol and Drug Abuse Patient Records regulations: The Federal rules restrict any use of the information to criminally investigate or prosecute any alcohol or drug abuse patient.[facility] HospitalIn the event this information is protected by the Federal Confidentiality of Alcohol and Drug Abuse Patient Records regulations: The Federal rules restrict any use of the information to criminally investigate or prosecute any alcohol or drug abuse patient.[facility] HospitalIn the event this information is protected by the Federal Confidentiality of Alcohol and Drug Abuse Patient Records regulations: The Federal rules restrict any use of the information to criminally investigate or prosecute any alcohol or drug abuse patient.[facility] HospitalIn the event this information is protected by the Federal Confidentiality of Alcohol and Drug Abuse Patient Records regulations: The Federal rules restrict any use of the information to criminally investigate or prosecute any alcohol or drug abuse patient.[facility] HospitalIn the event this information is protected by the Federal Confidentiality of Alcohol and Drug Abuse Patient Records regulations: The Federal rules restrict any use of the information to criminally investigate or prosecute any alcohol or drug abuse patient.[facility] HospitalIn the event this information is protected by the Federal Confidentiality of Alcohol and Drug Abuse Patient Records regulations: The Federal rules restrict any use of the information to criminally investigate or prosecute any alcohol or drug abuse patient.[facility] HospitalIn the event this information is protected by the Federal Confidentiality of Alcohol and Drug Abuse Patient Records regulations: The Federal rules restrict any use of the information to criminally investigate or prosecute any alcohol or drug abuse patient.[facility] HospitalIn the event this information is protected by the Federal Confidentiality of Alcohol and Drug Abuse Patient Records regulations: The Federal rules restrict any use of the information to criminally investigate or prosecute any alcohol or drug abuse patient.[facility] HospitalIn the event this information is protected by the Federal Confidentiality of Alcohol and Drug Abuse Patient Records regulations: The Federal rules restrict any use of the information to criminally investigate or prosecute any alcohol or drug abuse patient.[facility] HospitalIn the event this information is protected by the Federal Confidentiality of Alcohol and Drug Abuse Patient Records regulations: The Federal rules restrict any use of the information to criminally investigate or prosecute any alcohol or drug abuse patient.[facility] HospitalIn the event this information is protected by the Federal Confidentiality of Alcohol and Drug Abuse Patient Records regulations: The Federal rules restrict any use of the information to criminally investigate or prosecute any alcohol or drug abuse patient.[facility] HospitalIn the event this information is protected by the Federal Confidentiality of Alcohol and Drug Abuse Patient Records regulations: The Federal rules restrict any use of the information to criminally investigate or prosecute any alcohol or drug abuse patient.[facility] HospitalIn the event this information is protected by the Federal Confidentiality of Alcohol and Drug Abuse Patient Records regulations: The Federal rules restrict any use of the information to criminally investigate or prosecute any alcohol or drug abuse patient.[facility] HospitalIn the event this information is protected by the Federal Confidentiality of Alcohol and Drug Abuse Patient Records regulations: The Federal rules restrict any use of the information to criminally investigate or prosecute any alcohol or drug abuse patient.[facility] HospitalIn the event this information is protected by the Federal Confidentiality of Alcohol and Drug Abuse Patient Records regulations: The Federal rules restrict any use of the information to criminally investigate or prosecute any alcohol or drug abuse patient.[facility] HospitalIn the event this information is protected by the Federal Confidentiality of Alcohol and Drug Abuse Patient Records regulations: The Federal rules restrict any use of the information to criminally investigate or prosecute any alcohol or drug abuse patient.[facility] HospitalIn the event this information is protected by the Federal Confidentiality of Alcohol and Drug Abuse Patient Records regulations: The Federal rules restrict any use of the information to criminally investigate or prosecute any alcohol or drug abuse patient.[facility] HospitalIn the event this information is protected by the Federal Confidentiality of Alcohol and Drug Abuse Patient Records regulations: The Federal rules restrict any use of the information to criminally investigate or prosecute any alcohol or drug abuse patient.[facility] HospitalIn the event this information is protected by the Federal Confidentiality of Alcohol and Drug Abuse Patient Records regulations: The Federal rules restrict any use of the information to criminally investigate or prosecute any alcohol or drug abuse patient.[facility] HospitalIn the event this information is protected by the Federal Confidentiality of Alcohol and Drug Abuse Patient Records regulations: The Federal rules restrict any use of the information to criminally investigate or prosecute any alcohol or drug abuse patient.[facility] HospitalIn the event this information is protected by the Federal Confidentiality of Alcohol and Drug Abuse Patient Records regulations: The Federal rules restrict any use of the information to criminally investigate or prosecute any alcohol or drug abuse patient.[facility] HospitalIn the event this information is protected by the Federal Confidentiality of Alcohol and Drug Abuse Patient Records regulations: The Federal rules restrict any use of the information to criminally investigate or prosecute any alcohol or drug abuse patient.[facility] HospitalIn the event this information is protected by the Federal Confidentiality of Alcohol and Drug Abuse Patient Records regulations: The Federal rules restrict any use of the information to criminally investigate or prosecute any alcohol or drug abuse patient.[facility] HospitalIn the event this information is protected by the Federal Confidentiality of Alcohol and Drug Abuse Patient Records regulations: The Federal rules restrict any use of the information to criminally investigate or prosecute any alcohol or drug abuse patient.[facility] HospitalIn the event this information is protected by the Federal Confidentiality of Alcohol and Drug Abuse Patient Records regulations: The Federal rules restrict any use of the information to criminally investigate or prosecute any alcohol or drug abuse patient.[facility] HospitalIn the event this information is protected by the Federal Confidentiality of Alcohol and Drug Abuse Patient Records regulations: The Federal rules restrict any use of the information to criminally investigate or prosecute any alcohol or drug abuse patient.[facility] HospitalIn the event this information is protected by the Federal Confidentiality of Alcohol and Drug Abuse Patient Records regulations: The Federal rules restrict any use of the information to criminally investigate or prosecute any alcohol or drug abuse patient.[facility] HospitalIn the event this information is protected by the Federal Confidentiality of Alcohol and Drug Abuse Patient Records regulations: The Federal rules restrict any use of the information to criminally investigate or prosecute any alcohol or drug abuse patient.[facility] HospitalIn the event this information is protected by the Federal Confidentiality of Alcohol and Drug Abuse Patient Records regulations: The Federal rules restrict any use of the information to criminally investigate or prosecute any alcohol or drug abuse patient.[facility] HospitalIn the event this information is protected by the Federal Confidentiality of Alcohol and Drug Abuse Patient Records regulations: The Federal rules restrict any use of the information to criminally investigate or prosecute any alcohol or drug abuse patient.[facility] HospitalIn the event this information is protected by the Federal Confidentiality of Alcohol and Drug Abuse Patient Records regulations: The Federal rules restrict any use of the information to criminally investigate or prosecute any alcohol or drug abuse patient.[facility] HospitalIn the event this information is protected by the Federal Confidentiality of Alcohol and Drug Abuse Patient Records regulations: The Federal rules restrict any use of the information to criminally investigate or prosecute any alcohol or drug abuse patient.[facility] HospitalIn the event this information is protected by the Federal Confidentiality of Alcohol and Drug Abuse Patient Records regulations: The Federal rules restrict any use of the information to criminally investigate or prosecute any alcohol or drug abuse patient.[facility] HospitalIn the event this information is protected by the Federal Confidentiality of Alcohol and Drug Abuse Patient Records regulations: The Federal rules restrict any use of the information to criminally investigate or prosecute any alcohol or drug abuse patient.[facility] HospitalIn the event this information is protected by the Federal Confidentiality of Alcohol and Drug Abuse Patient Records regulations: The Federal rules restrict any use of the information to criminally investigate or prosecute any alcohol or drug abuse patient.[facility] HospitalIn the event this information is protected by the Federal Confidentiality of Alcohol and Drug Abuse Patient Records regulations: The Federal rules restrict any use of the information to criminally investigate or prosecute any alcohol or drug abuse patient.[facility] HospitalIn the event this information is protected by the Federal Confidentiality of Alcohol and Drug Abuse Patient Records regulations: The Federal rules restrict any use of the information to criminally investigate or prosecute any alcohol or drug abuse patient.[facility] HospitalIn the event this information is protected by the Federal Confidentiality of Alcohol and Drug Abuse Patient Records regulations: The Federal rules restrict any use of the information to criminally investigate or prosecute any alcohol or drug abuse patient.[facility] HospitalIn the event this information is protected by the Federal Confidentiality of Alcohol and Drug Abuse Patient Records regulations: The Federal rules restrict any use of the information to criminally investigate or prosecute any alcohol or drug abuse patient.[facility] HospitalIn the event this information is protected by the Federal Confidentiality of Alcohol and Drug Abuse Patient Records regulations: The Federal rules restrict any use of the information to criminally investigate or prosecute any alcohol or drug abuse patient.[facility] HospitalIn the event this information is protected by the Federal Confidentiality of Alcohol and Drug Abuse Patient Records regulations: The Federal rules restrict any use of the information to criminally investigate or prosecute any alcohol or drug abuse patient.[facility] HospitalIn the event this information is protected by the Federal Confidentiality of Alcohol and Drug Abuse Patient Records regulations: The Federal rules restrict any use of the information to criminally investigate or prosecute any alcohol or drug abuse patient.[facility] HospitalIn the event this information is protected by the Federal Confidentiality of Alcohol and Drug Abuse Patient Records regulations: The Federal rules restrict any use of the information to criminally investigate or prosecute any alcohol or drug abuse patient.[facility] HospitalIn the event this information is protected by the Federal Confidentiality of Alcohol and Drug Abuse Patient Records regulations: The Federal rules restrict any use of the information to criminally investigate or prosecute any alcohol or drug abuse patient.[facility] HospitalIn the event this information is protected by the Federal Confidentiality of Alcohol and Drug Abuse Patient Records regulations: The Federal rules restrict any use of the information to criminally investigate or prosecute any alcohol or drug abuse patient.[facility] HospitalIn the event this information is protected by the Federal Confidentiality of Alcohol and Drug Abuse Patient Records regulations: The Federal rules restrict any use of the information to criminally investigate or prosecute any alcohol or drug abuse patient.[facility] HospitalIn the event this information is protected by the Federal Confidentiality of Alcohol and Drug Abuse Patient Records regulations: The Federal rules restrict any use of the information to criminally investigate or prosecute any alcohol or drug abuse patient.[facility] HospitalIn the event this information is protected by the Federal Confidentiality of Alcohol and Drug Abuse Patient Records regulations: The Federal rules restrict any use of the information to criminally investigate or prosecute any alcohol or drug abuse patient.[facility] HospitalIn the event this information is protected by the Federal Confidentiality of Alcohol and Drug Abuse Patient Records regulations: The Federal rules restrict any use of the information to criminally investigate or prosecute any alcohol or drug abuse patient.[facility] HospitalIn the event this information is protected by the Federal Confidentiality of Alcohol and Drug Abuse Patient Records regulations: The Federal rules restrict any use of the information to criminally investigate or prosecute any alcohol or drug abuse patient.[facility] HospitalIn the event this information is protected by the Federal Confidentiality of Alcohol and Drug Abuse Patient Records regulations: The Federal rules restrict any use of the information to criminally investigate or prosecute any alcohol or drug abuse patient.[facility] Care Teams (unrecognized sec tion and content) Conference And Event Organiser Relationship Specialty Start Date End Date Israel Pruitt DO [address] [place] [address] PCP - General Internal Medicine 11/10/19 Laron Arreola [address] [address] Orthopedics 11/22/20 Conference And Event Organiser Relationship Specialty Start Date End Date Israel Pruitt DO [address] [place] [address] PCP - General Internal Medicine 11/10/19 Laron Arreola [address] [facility]ERSONMer[facility] [address] [address] Orthopedics 11/22/20 Conference And Event Organiser Relationship Specialty Start Date End Date Israel Pruitt DO [address] [place] [address] PCP - General Internal Medicine 11/10/19 Laron Arreola [address] [place] [address] Orthopedics 11/22/20 Conference And Event Organiser Relationship Specialty Start Date End Date Israel Pruitt, DO [address] [place] [address] PCP - General Internal Medicine 11/10/19 Laron Arreola [address] [place] [address] Orthopedics 11/22/20 Conference And Event Organiser Relationship Specialty Start Date End Date Israel Pruitt, DO [address] [place] [address] PCP - General Internal Medicine 11/10/19 Laron Arreola [address] [place] [address] Orthopedics 11/22/20 Israel Minor MD [address] [place] [address] Cardiology 02/27/22 Conference And Event Organiser Relationship Specialty Start Date End Date Israel Pruitt, DO [address] [place] [address] PCP - General Internal Medicine 11/10/19 Laron Arreola [address] [place] [address] Orthopedics 11/22/20 Israel Minor MD [address] [place] [address] Cardiology 02/27/22 Conference And Event Organiser Relationship Specialty Start Date End Date Israel Pruitt, DO [address] [place] [address] PCP - General Internal Medicine 11/10/19 Laron Arreola [address] [place] [address] Orthopedics 11/22/20 Israel Minor MD [address] [place] [address] Cardiology 02/27/22 Conference And Event Organiser Relationship Specialty Start Date End Date Israel Pruitt DO [address] [place] [address] PCP - General Internal Medicine 11/10/19 Laron Arreola [address] [place] [address] Orthopedics 11/22/20 Israel Minor MD [address] [place] [address] Cardiology 02/27/22 Conference And Event Organiser Relationship Specialty Start Date End Date Israel Pruitt DO [address] [place] [address] PCP - General Internal Medicine 11/10/19 Laron Arreola [address] [place] [address] Orthopedics 11/22/20 Israel Minor MD [address] [place] [address] Cardiology 02/27/22 Conference And Event Organiser Relationship Specialty Start Date End Date Israel Pruitt DO [address] [place] [address] PCP - General Internal Medicine 11/10/19 Laron Arreoal [address] [place] [address] Orthopedics 11/22/20 Israel Minor MD [address] [place] [address] Cardiology 02/27/22 Conference And Event Organiser Relationship Specialty Start Date End Date Israel Pruitt, DO [address] [place] [address] PCP - General Internal Medicine 11/10/19 Laron Arreola [address] [facility] [address] [place] [address] Orthopedics 11/22/20 Israel Minor MD [address] [place] [address] Cardiology 02/27/22 Conference And Event Organiser Relationship Specialty Start Date End Date Israel Pruitt, DO [address] [place] [address] PCP - General Internal Medicine 11/10/19 Laron Arreola [address] [facility] [address] [place] [address] Orthopedics 11/22/20 Israel Minor MD [address] [place] [address] Cardiology 02/27/22 Conference And Event Organiser Relationship Specialty Start Date End Date Israel Pruitt, DO [address] [place] [address] PCP - General Internal Medicine 11/10/19 Laron Arreola [address] [place] [address] Orthopedics 11/22/20 Israel Minor MD [address] [place] [address] Cardiology 02/27/22 Conference And Event Organiser Relationship Specialty Start Date End Date Israel Pruitt, DO [address] [place] [address] PCP - General Internal Medicine 11/10/19 Laron Arreola [address] [place] [address] Orthopedics 11/22/20 Israel Minor MD [address] [place] [address] Cardiology 02/27/22 Conference And Event Organiser Relationship Specialty Start Date End Date Israel Pruitt DO [address] [place] [address] PCP - General Internal Medicine 11/10/19 Laron Arreola [address] [place] [address] Orthopedics 11/22/20 Israel Minor MD [address] [place] [address] Cardiology 02/27/22 Conference And Event Organiser Relationship Specialty Start Date End Date Israel Pruitt DO [address] [place] [address] PCP - General Internal Medicine 11/10/19 Laron Arreola [address] [place] [address] Orthopedics 11/22/20 Israel Minor MD [address] [place] [address] Cardiology 02/27/22 Conference And Event Organiser Relationship Specialty Start Date End Date Israel Pruitt DO [address] [place] [address] PCP - General Internal Medicine 11/10/19 Laron Arreola [address] [facility] [address] [place] [address] Orthopedics 11/22/20 Israel Mionr MD [address] [place] [address] Cardiology 02/27/22 Conference And Event Organiser Relationship Specialty Start Date End Date Israel Pruitt DO [address] [place] [address] PCP - General Internal Medicine 11/10/19 Laron Arreola [address] [facility] [address] [place] [address] Orthopedics 11/22/20 Israel Minor MD [address] [place] [address] Cardiology 02/27/22 Conference And Event Organiser Relationship Specialty Start Date End Date Israel Pruitt DO [address] [place] [address] PCP - General Internal Medicine 11/10/19 Laron Arreola [address] [facility] [address] [place] [address] Orthopedics 11/22/20 Israel Minor MD [address] [facility] [place] [address] Cardiology 02/27/22 Conference And Event Organiser Relationship Specialty Start Date End Date JovannyjoanIsrael yanez DO [address] [place] [address] PCP - General Internal Medicine 11/10/19 Laron Arreola [address] [place] [address] Orthopedics 11/22/20 Israel Minor MD [address] [facility] [place] [address] Cardiology 02/27/22 Conference And Event Organiser Relationship Specialty Start Date End Date Edmond Israel Hamzah, DO [address] [place] [address] PCP - General Internal Medicine 11/10/19 Laron Arreola [address] [place] [address] Orthopedics 11/22/20 Israel Minor MD [address] [place] [address] Cardiology 02/27/22 Conference And Event Organiser Relationship Specialty Start Date End Date Edmond Israel Hamzah, DO [address] [place] [address] PCP - General Internal Medicine 11/10/19 Laron Arreola [address] [place] [address] Orthopedics 11/22/20 Israel Minor MD [address] [facility] [place] [address] Cardiology 02/27/22 Conference And Event Organiser Relationship Specialty Start Date End Date Israel Pruitt DO [address] [place] [address] PCP - General Internal Medicine 11/10/19 Laron Arreola [address] [place] [address] Orthopedics 11/22/20 Israel Minor MD [address] [place], [place] [address] Cardiology 02/27/22 Tere Wang, JESSY [address] [place] [address] Primary Care Monitor Worker [facility] 07/10/22 09/08/22 Conference And Event Organiser Relationship Specialty Start Date End Date Israel Pruitt DO [address] [place] [address] PCP - General Internal Medicine 11/10/19 Laron Arreola [address] [place] [address] Orthopedics 11/22/20 Israel Minor MD [address] [place] [address] Cardiology 02/27/22 Tere Wang RN [address] [place] [address] Primary Care Monitor Worker [facility] 07/10/22 09/08/22 Conference And Event Organiser Relationship Specialty Start Date End Date Israel Pruitt DO [address] [place] [address] PCP - General Internal Medicine 11/10/19 Laron Arreola [address] [place] [address] Orthopedics 11/22/20 Israel Minor MD [address] [place] [address] Cardiology 02/27/22 Tere Wang RN [address] [place] [address] Primary Care Monitor Worker [facility] 07/10/22 09/08/22 Conference And Event Organiser Relationship Specialty Start Date End Date Israel Pruitt DO [address] [place] [address] PCP - General Internal Medicine 11/10/19 Laron Arreola [address] [facility] [address] [place] [address] Orthopedics 11/22/20 Israel Minor MD [address] [place] [address] Cardiology 02/27/22 Tere Wang RN [address] [facility] [place] [address] Primary Care Monitor Worker [facility] 07/10/22 09/08/22 Conference And Event Organiser Relationship Specialty Start Date End Date Israel Pruitt DO [address] [place] [address] PCP - General Internal Medicine 11/10/19 Laron Arreola [address] [place] [address] Orthopedics 11/22/20 Israel Minor MD [address] [place] [address] Cardiology 02/27/22 Tere Wang RN [address] [place] [address] [place] [address] Primary Care Monitor Worker Family Practice 07/10/22 09/08/22 Conference And Event Organiser Relationship Specialty Start Date End Date Israel Pruitt DO [address] [place] [address] PCP - General Internal Medicine 11/10/19 Laron Arreola [address] [facility] [address] [place] [address] Orthopedics 11/22/20 Israel Minor MD [address] [place] [address] Cardiology 02/27/22 Tere Wang, JESSY [address] [facility] [place] [address] Primary Care Monitor Worker Family Medicine 07/10/22 09/08/22 Conference And Event Organiser Relationship Specialty Start Date End Date Israel Pruitt, DO [address] [place] [address] PCP - General Internal Medicine 11/10/19 Laron Arreola [address] [facility] [address] [place] [address] Orthopedics 11/22/20 Israel Minor MD [address] [place] [address] Cardiology 02/27/22 Tere Wang, RN [address] [place] [address] Primary Care Monitor Worker Family Medicine 07/10/22 09/08/22 Conference And Event Organiser Relationship Specialty Start Date End Date Israel Pruitt DO [address] [place] [address] PCP - General Internal Medicine 11/10/19 Laron Arreola [address] [facility] [facility] [address] [place] [address] Orthopedics 11/22/20 Israel Minor MD [address] [facility] [place] [address] Cardiology 02/27/22 Eveline Dean RN [address] [place] [address] Timing Adjuster 08/08/22 Conference And Event Organiser Relationship Specialty Start Date End Date Israel Pruitt DO [address] [place] [address] PCP - General Internal Medicine 11/10/19 Laron Arreola [address] [facility] [facility] [address] [place] [address] Orthopedics 11/22/20 Israel Minor MD [address] [place] [address] Cardiology 02/27/22 Eveline Dean RN [address] [place] [address] Timing Adjuster 08/08/22 Conference And Event Organiser Relationship Specialty Start Date End Date Israel Pruitt DO [address] [place] [address] PCP - General Internal Medicine 11/10/19 Laron Arreola [address] [facility] [facility] [address] [place] [address] Orthopedics 11/22/20 Israel Minor MD [address] [place] [address] Cardiology 02/27/22 Evelnie Dean RN [address] [place] [address] Timing Adjuster 08/08/22 Conference And Event Organiser Relationship Specialty Start Date End Date Israel Pruitt, DO [address] [facility] [place] [address] PCP - General Internal Medicine 11/10/19 Laron Arreola [address] [facility] [address] [place], [place] [address] Orthopedics 11/22/20 Israel Minor MD [address] [place], [place] [id number] Cardiology 02/27/22 Eveline Dean, JESSY [address] [place], [place] [address]30[address]31 Timing Adjuster 08/08/22 Randa Rowell DO [facility] [address] [place], [place] [phone] Hematology/Oncology 09/08/22 Sanket Rob, DO [address] [place] [address] Neurology 09/08/22 Conference And Event Organiser Relationship Specialty Start Date End Date Israel Pruitt, DO [address] [place] [address] PCP - General Internal Medicine 11/10/19 Laron Arreola [address] [facility] [address] [place], [place] [address] [phone] Orthopedics 11/22/20 Israel Minor MD [address] [place], [place] [address] [phone] Cardiology 02/27/22 Eveline Dean, JESSY [address] [place] [address] Timing Adjuster 08/08/22 Randa Rowell, DO 1946 [facility] [address] [place] [address] Hematology/Oncology 09/08/22 Sanket Rob, DO [address] [place] [address] Neurology 09/08/22 Conference And Event Organiser Relationship Specialty Start Date End Date Israel Pruitt, DO [address] [place] [address] PCP - General Internal Medicine 11/10/19 Laron Arreola [address] [address] Orthopedics 11/22/20 Israel Minor MD [address] [place] [address] Cardiology 02/27/22 Eveline Dean, JESSY [address] [place] [address] Timing Adjuster 08/08/22 Randa Rowell DO [address] [address] Hematology/Oncology 09/08/22 Sanket Rob, DO [address] [place] [address] Neurology 09/08/22 Conference And Event Organiser Relationship Specialty Start Date End Date Israel Pruitt DO [address] [place] [address] PCP - General Internal Medicine 11/10/19 Laron Arreola [address] [place] [address] Orthopedics 11/22/20 Israel Minor MD [address] [place], [place] [id number] Cardiology 02/27/22 Eveline Dean, JESSY [address] [place] [address] Timing Adjuster 08/08/22 Randa Rowell, DO [address] [place] [address] [address] [place], [place] [phone] Hematology/Oncology 09/08/22 Saknet Rob, DO [address] [place] [address] Neurology 09/08/22 Conference And Event Organiser Relationship Specialty Start Date End Date Israel Pruitt, [address] [place] [address] PCP - General Internal Medicine 11/10/19 Laron Arreola 3975 [facility] [address] [place], [place] [address] Orthopedics 11/22/20 Israel Minor MD [address] [place], [place] 318[address] Cardiology 02/27/22 Eveline Dean RN [address] [place] [address] Timing Adjuster 08/08/22 Randa Rowell, DO [facility] [address] [place], [place] [phone] Hematology/Oncology 09/08/22 Sanket Rob, [address] [place] [address] Neurology 09/08/22 Ten Weber, [facility] [address] [place] [address] Transitional Care Pharmacist Pharmacy 09/19/22 10/17/22 Conference And Event Organiser Relationship Specialty Start Date End Date Israel Pruitt, DO [address] [place] [address] PCP - General Internal Medicine 11/10/19 Laron Arreola [address] [place] [address] Orthopedics 11/22/20 Israel Minor MD [address] [place], [place] [id number] Cardiology 02/27/22 Eveline Dean, RN [address] [place] [address] Timing Adjuster 08/08/22 Randa Rowell DO 1946 [facility] [address] [place], [place] [phone] Hematology/Oncology 09/08/22 Sanket Rob, DO [address] [place] [address] Neurology 09/08/22 Ten Weber, [facility] [address] [place] [address] Transitional Care Pharmacist Pharmacy 09/19/22 10/17/22 Conference And Event Organiser Relationship Specialty Start Date End Date Israel Pruitt DO [address] [place] [address] PCP - General Internal Medicine 11/10/19 Laron Arreola [address] [place] [address] Orthopedics 11/22/20 Israel Minor MD [address] [place], [place] 477966 Cardiology 02/27/22 Eveline Dean, JESSY [address] [place] [address] Timing Adjuster 08/08/22 Randa Rowell, DO [address] [place] [address] [phone] Hematology/Oncology 09/08/22 Sanket Rob, [address] [place] [address] Neurology 09/08/22 [facility] [address] [place] [address] Transitional Care Pharmacist Pharmacy 09/19/22 10/17/22 Conference And Event Organiser Relationship Specialty Start Date End Date Israel Pruitt, [address] [place] [address] PCP - General Internal Medicine 11/10/19 Laron Arreola [address] [id number] Orthopedics 11/22/20 Israel Minor MD [address] [place], [place] [address] Cardiology 02/27/22 Eveline Dean, JESSY [address] [place] [address] Timing Adjuster 08/08/22 Randa Rowell, DO [address] [place] [address] [phone] Hematology/Oncology 09/08/22 Sanket Rob, DO [address] [place] [address] Neurology 09/08/22 Ten Weber, [facility] [address] [place] [address] Transitional Care Pharmacist Pharmacy 09/19/22 10/17/22 Conference And Event Organiser Relationship Specialty Start Date End Date Israel Pruitt Hamzah, DO [address] [place] [address] PCP - General Internal Medicine 11/10/19 Laron Arreola [address] [place] [address] Orthopedics 11/22/20 Israel Minor MD [facility] [place] [address] Cardiology 02/27/22 Eveline Dean RN [address] [place] [address] Timing Adjuster 08/08/22 Randa Rowell, DO 1946 [facility] [address] [place], [place] [phone] Hematology/Oncology 09/08/22 Sanket Rob, [address] [place] [address] Neurology 09/08/22 Ten Weber, [facility] [address] [place] [address] Transitional Care Pharmacist Pharmacy 09/19/22 10/17/22 Conference And Event Organiser Relationship Specialty Start Date End Date Israel Pruitt, DO [address] [place] [address] PCP - General Internal Medicine 11/10/19 Laron Arreola [address] [place] [address] Orthopedics 11/22/20 Israel Minor MD [address] [place], [place] [id number] Cardiology 02/27/22 Eveline Dean, JESSY [address] [place], [place] 4530031 Timing Adjuster 08/08/22 Randa Rowell [address] [phone] Hematology/Oncology 09/08/22 Sanket Rob, [address] [place] [address] Neurology 09/08/22 Ten Weber, [facility] [address] [place] [address] Transitional Care Pharmacist Pharmacy 09/19/22 10/17/22 Conference And Event Organiser Relationship Specialty Start Date End Date Israel Pruitt, [address] [place] [address] PCP - General Internal Medicine 11/10/19 Laron Arreola [address] [phone] Orthopedics 11/22/20 Israel Minor MD [address] [place], [place] [id number] Cardiology 02/27/22 Eveline Dean, JESSY [address] [place] [address] Timing Adjuster 08/08/22 Randa Rowell, DO [address] [place] [address] [phone] Hematology/Oncology 09/08/22 Sanket Rob, DO [address] [place] [address] Neurology 09/08/22 [facility] [address] [place] [address] Transitional Care Pharmacist Pharmacy 09/19/22 10/17/22 Conference And Event Organiser Relationship Specialty Start Date End Date Israel Pruitt, DO [address] [place] [address] PCP - General Internal Medicine 11/10/19 Laron Arreola [address] [place] [address] 102 [place], [place] [phone] Orthopedics 11/22/20 Israel Minor MD [facility] [address] [place], [place] [address] Cardiology 02/27/22 Eveline Dean, JESSY [address] [place], [place] 4989031 Timing Adjuster 08/08/22 Randa Rowell DO 1946 [facility] [address] [place], [place] [phone] Hematology/Oncology 09/08/22 Sanket Rob, DO [address] [place] [address] Neurology 09/08/22 Ten Weber, [facility] [address] [place] [address] Transitional Care Pharmacist Pharmacy 09/19/22 10/17/22 Conference And Event Organiser Relationship Specialty Start Date End Date Israel Pruitt DO [address] [place] [address] PCP - General Internal Medicine 11/10/19 Laron Arreola [address] [place], [place] [address] Orthopedics 11/22/20 Israel Minor MD [address] [place], [place] 276696 Cardiology 02/27/22 Eveline Dean, RN [address] [place], [place] [phone] Timing Adjuster 08/08/22 Randa Rowell DO [facility]6 [facility] [address] [place], [place] [phone] Hematology/Oncology 09/08/22 Sanket Rob, [address] [place] [address] Neurology 09/08/22 Ten Weber, [facility] [address] [place], [place] [phone] Transitional Care Pharmacist Pharmacy 09/19/22 10/17/22 Conference And Event Organiser Relationship Specialty Start Date End Date Israel Pruitt [address] [place] [address] PCP - General Internal Medicine 11/10/19 Laron Arreola [address] [facility] [address] [address] [facility] 102 [place], [place] [address] Orthopedics 11/22/20 Israel Minor MD [address] [place], [place] [phone] Cardiology 02/27/22 Eveline Dean, RN [address] [place], [place] 7891931 Timing Adjuster 08/08/22 Randa Rwoell DO [address] [address] Hematology/Oncology 09/08/22 Sanket Rob, DO [address] [place] [address] Neurology 09/08/22 Conference And Event Organiser Relationship Specialty Start Date End Date Israel Pruitt, DO [address] [place] [address] PCP - General Internal Medicine 11/10/19 Laron Arreola [address] [address] Orthopedics 11/22/20 Israel Minor MD [address] [place], [place] [phone] Cardiology 02/27/22 Eveline Dean, RN [address] [place] [phone] Timing Adjuster 08/08/22 Randa Rowell DO [address] [address] Hematology/Oncology 09/08/22 Sanket Rob, DO [address] [place] [address] Neurology 09/08/22 Conference And Event Organiser Relationship Specialty Start Date End Date Israel Pruitt DO [address] [place] [address] PCP - General Internal Medicine 11/10/19 Laron Arreola [address] [facility] [address] [place] [address] Orthopedics 11/22/20 Israel Minor MD [address] [place], [place] 709306 Cardiology 02/27/22 Eveline Dean RN [address] [place] [address] Timing Adjuster 08/08/22 Randa Rowell, DO [address] [place] [address] [phone] Hematology/Oncology 09/08/22 Sanket Rob, DO [address] [place] [address] Neurology 09/08/22 Conference And Event Organiser Relationship Specialty Start Date End Date Israel Pruitt DO [address] [place] [address] PCP - General Internal Medicine 11/10/19 Laron Arreola [address] [address] Orthopedics 11/22/20 Israel Minor MD [address] [place], [place] [phone] Cardiology 02/27/22 Eveline Dean RN [address] [place] [address] Timing Adjuster 08/08/22 Randa Rowell, DO [address] [place] [address] [phone] Hematology/Oncology 09/08/22 Sanket Rob, DO [address] [place] [address] Neurology 09/08/22 Conference And Event Organiser Relationship Specialty Start Date End Date Israel Pruitt DO [address] [place] [address] PCP - General Internal Medicine 11/10/19 Laron Arreola [address] [place] [address] Orthopedics 11/22/20 Israel Minor MD [address] [place], [place] 544[address]92 [phone] Cardiology 02/27/22 Eveline Dean, JESSY [address] [place] [address] Timing Adjuster 08/08/22 Randa Rowell DO [address] [place] [address] [phone] Hematology/Oncology 09/08/22 Sanket Rob DO [address] [place] [address] Neurology 09/08/22 Conference And Event Organiser Relationship Specialty Start Date End Date Israel Pruitt DO [address] [place] [address] PCP - General Internal Medicine 11/10/19 Laron Arreola [address] [place] [address] Orthopedics 11/22/20 Israel Minor MD [address] [place], [place] 578612 [phone] Cardiology 02/27/22 Eveline Dean, JESSY [address] [place], [place] [phone] Timing Adjuster 08/08/22 Randa Rowell DO [address] [place] [address] [phone] Hematology/Oncology 09/08/22 Sanket Rob DO [address] [place] [address] Neurology 09/08/22 Conference And Event Organiser Relationship Specialty Start Date End Date Israel Pruitt, DO [address] [place] [address] PCP - General Internal Medicine 11/10/19 Laron Arreola [address] [facility] 102 [place] [address] Orthopedics 11/22/20 Israel Minor MD [address] [place], [place] [phone] Cardiology 02/27/22 Eveline Dean RN [address] [place] [address] Timing Adjuster 08/08/22 Randa Rowell, DO 1946 [facility] [address] [place], [place] 5280[address] Hematology/Oncology 09/08/22 Sanket Rob, [address] [place] [address] Neurology 09/08/22 Conference And Event Organiser Relationship Specialty Start Date End Date ZabrinaIsrael yanez Hamzah, DO [address] [place] [address] PCP - General Internal Medicine 11/10/19 Laron Arreola [address] [facility] 102 [place] [address] Orthopedics 11/22/20 Israel Minor MD [address] [place], [place] 109153 [phone] Cardiology 02/27/22 Eveline Dean RN [address] [place] [address] Timing Adjuster 08/08/22 Randa Rowell, DO [address] [place] [address] [phone] Hematology/Oncology 09/08/22 Sanket Rob, DO [address] [place] [address] Neurology 09/08/22 Conference And Event Organiser Relationship Specialty Start Date End Date Israel Pruitt, DO [address] [facility] [place] [address] PCP - General Internal Medicine 11/10/19 Laron Arreola [address] [address] [place] [address] Orthopedics 11/22/20 Israel Minor MD [facility] [place] [address] Cardiology 02/27/22 Eveline Dean RN [address] [place] [address] Timing Adjuster 08/08/22 Randa Rowell, DO [address] [place] [address] [phone] Hematology/Oncology 09/08/22 Sanket Rob, DO [address] [place] [address] Neurology 09/08/22 Conference And Event Organiser Relationship Specialty Start Date End Date Israel Pruitt DO [address] [place] [address] PCP - General Internal Medicine 11/10/19 Laron Arreola [address] [place], [place] [phone] Orthopedics 11/22/20 Israel Minor MD [address] [place], [place] [phone] Cardiology 02/27/22 Eveline Dean, JESSY [address] [place] [address] Timing Adjuster 08/08/22 Randa Rowell DO [address] [place] [address] 310 [place], [place] [phone] Hematology/Oncology 09/08/22 Sanket Rob DO [address] [place] [address] Neurology 09/08/22 Conference And Event Organiser Relationship Specialty Start Date End Date Israel Pruitt DO [address] [place] [address] PCP - General Internal Medicine 11/10/19 Laron Arreola 3975 [facility] 102 [place], [place] [phone] Orthopedics 11/22/20 Israel Minor MD [address] [place], [place] [phone] Cardiology 02/27/22 Eveline Dean, JESSY [address] [place] [address] Timing Adjuster 08/08/22 Randa Rowell DO [facility]6 [facility] 310 [place], [place] [phone] Hematology/Oncology 09/08/22 Sanket Rob DO [address] [place] [address] Neurology 09/08/22 Conference And Event Organiser Relationship Specialty Start Date End Date Israel Pruitt, DO [address] [place] [address] PCP - General Internal Medicine 11/10/19 Laron Arreola [address] [facility] 102 [place] [address] Orthopedics 11/22/20 Israel Minor MD [address] [place] [address] Cardiology 02/27/22 Eveline Dean, JESSY [address] [place], [place] [phone] Timing Adjuster 08/08/22 Randa Rowell, DO [address] [place] [address] [phone] Hematology/Oncology 09/08/22 Sanket Rob, DO [address] [place] [phone] Neurology 09/08/22 Conference And Event Organiser Relationship Specialty Start Date End Date Israel Pruitt, DO [address] [place] [address] PCP - General Internal Medicine 11/10/19 Laron Arreola [address] [facility] 102 [place] [address] Orthopedics 11/22/20 Israel Minor MD [address] [place], [place] 838902 [phone] Cardiology 02/27/22 Eveline Dean, JESSY [address] [place] [address] Timing Adjuster 08/08/22 Randa Rowell, DO [address] [place] [address] [phone] Hematology/Oncology 09/08/22 Sanket Rob, DO [address] [place] [address] Neurology 09/08/22 Conference And Event Organiser Relationship Specialty Start Date End Date Israel Pruitt DO [address] [place] [address] PCP - General Internal Medicine 11/10/19 Laron Arreola 3978 [facility] 102 [place] [address] Orthopedics 11/22/20 Israel Minor MD [address] [place], [place] 790416 Cardiology 02/27/22 Eveline Dean, RN [address] [place] [address] Timing Adjuster 08/08/22 Randa Rowell, DO 1946 [facility] 310 [place], [place] [phone] Hematology/Oncology 09/08/22 Sanket Rob, DO [address] [place] [address] Neurology 09/08/22 Conference And Event Organiser Relationship Specialty Start Date End Date Israel Pruitt DO [address] [place] [address] PCP - General Internal Medicine 11/10/19 Laron Arreola 397 [facility] 102 [place] [address] Orthopedics 11/22/20 Israel Minor MD [address] [place] [address] Cardiology 02/27/22 Eveline Dean, JESSY [address] [place] [address] Timing Adjuster 08/08/22 Randa Rowell, DO [address] [place] [address] [phone] Hematology/Oncology 09/08/22 Sanket Rob, DO [address] [place] [address] Neurology 09/08/22 Conference And Event Organiser Relationship Specialty Start Date End Date Israel Pruitt DO [address] [place] [address] PCP - General Internal Medicine 11/10/19 Laron Arreola [address] [place] [address] [phone] Orthopedics 11/22/20 Israel Minor MD [address] [place], [place] [phone] Cardiology 02/27/22 Eveline Dean RN [address] [place] [address] Timing Adjuster 08/08/22 Randa Rowell, [address] [phone] Hematology/Oncology 09/08/22 Sanket Rob, DO [address] [place] [address] Neurology 09/08/22 Conference And Event Organiser Relationship Specialty Start Date End Date Israel Pruitt DO [address] [place] [address] PCP - General Internal Medicine 11/10/19 Laron Arreola [address] [facility] [facility] [address] [place] [address] Orthopedics 11/22/20 Israel Minor MD [address] [place], [place] 587446 Cardiology 02/27/22 Eveline Dean RN [address] [place], [place] [phone] Timing Adjuster 08/08/22 Randa Rowell DO [address] [place] [address] 310 [place], [place] [phone] Hematology/Oncology 09/08/22 Sanket Rob DO [address] [place] [address] Neurology 09/08/22 Conference And Event Organiser Relationship Specialty Start Date End Date Israel Pruitt DO [address] [place] [address] PCP - General Internal Medicine 11/10/19 Laron Arreola [address] [facility] [address] [place] [address] Orthopedics 11/22/20 Israel Minor MD [address] [place] [address] [place], [place] 199916 Cardiology 02/27/22 Eveline Dean RN [address] [place] [address] Timing Adjuster 08/08/22 Randa Rowell DO [address] [place] [address] [phone] Hematology/Oncology 09/08/22 Sanket Rob DO [address] [place] [address] Neurology 09/08/22 Conference And Event Organiser Relationship Specialty Start Date End Date Israel Pruitt, DO [address] [place] [address] PCP - General Internal Medicine 11/10/19 Laron Arreola 397 [facility] 102 [place] [address] Orthopedics 11/22/20 Israel Minor MD [address] [place], [place] [phone] Cardiology 02/27/22 Eveline Dean, JESSY [address] [place] [address] Timing Adjuster 08/08/22 Randa Rowell DO 1946 [facility] 310 [place], [place] 257615 Hematology/Oncology 09/08/22 Sanket Rob, DO [address] [place] [address] Neurology 09/08/22 Conference And Event Organiser Relationship Specialty Start Date End Date Israel Pruitt DO [address] [place] [address] PCP - General Internal Medicine 11/10/19 Laron Arreola 3971 [facility] 102 [place], [place] 191653 Orthopedics 11/22/20 Israel Minor MD [address] [place], [place] [id number] [phone] Cardiology 02/27/22 Eveline Dean RN [address] [place] [address] Timing Adjuster 08/08/22 Randa Rowell, DO [address] [place] [address] 310 [place], [place] [phone] Hematology/Oncology 09/08/22 Sanket Rob, DO [address] [place] [address] Neurology 09/08/22 Conference And Event Organiser Relationship Specialty Start Date End Date Israel Pruitt, DO [address] [facility] [place] [address] PCP - General Internal Medicine 11/10/19 Laron Arreola 3973 [facility] 102 [place] [address] Orthopedics 11/22/20 Israel Minor MD [facility] [place] [address] Cardiology 02/27/22 Eveline Dean, JESSY [address] [place] [address] Timing Adjuster 08/08/22 Randa Rowell, DO [facility]6 [address] [phone] Hematology/Oncology 09/08/22 Sanket Rob, DO [address] [place] [address] Neurology 09/08/22 Conference And Event Organiser Relationship Specialty Start Date End Date Israel Pruitt DO [address] [place] [address] PCP - General Internal Medicine 11/10/19 Laron Arreola [address] [place] [address] Orthopedics 11/22/20 Israel Minor MD [address] [place], [place] [phone] Cardiology 02/27/22 Eveline Dean, JESSY [address] [place] [address] Timing Adjuster 08/08/22 Randa Rowell, DO [address] [place] [address] 310 [place], [place] [phone] Hematology/Oncology 09/08/22 Sanket Rob DO [address] [place] [address] Neurology 09/08/22 Conference And Event Organiser Relationship Specialty Start Date End Date Israel Pruitt DO [address] [place] [address] PCP - General Internal Medicine 11/10/19 Laron Arreola 3975 [facility] 102 [place] [address] Orthopedics 11/22/20 Israel Minor MD [address] [place], [place] [phone] Cardiology 02/27/22 Eveline Dean RN [address] [place] [address] Timing Adjuster 08/08/22 Randa Rowell, DO [facility]6 [facility] 310 [place], [place] [phone] Hematology/Oncology 09/08/22 Sanket Rob DO [address] [place] [address] Neurology 09/08/22 Conference And Event Organiser Relationship Specialty Start Date End Date Israel Pruitt, DO [address] [place] [address] PCP - General Internal Medicine 11/10/19 Laron Arreola [address] [address] Orthopedics 11/22/20 Israel Minor MD [address] [place] [place] 395315 [phone] Cardiology 02/27/22 Eveline Dean, RN [address] [place], [place] [phone] Timing Adjuster 08/08/22 Randa Rowell, DO [address] [place] [address] [phone] Hematology/Oncology 09/08/22 Sanket Rob, DO [address] [place] [address] Neurology 09/08/22 Conference And Event Organiser Relationship Specialty Start Date End Date Israel Pruitt, DO [address] [place] [address] PCP - General Internal Medicine 11/10/19 Laron Arreola [address] [place] [address] Orthopedics 11/22/20 Israel Minor MD [address] [place], [place] 08722427 [phone] Cardiology 02/27/22 Eveline Dean, JESSY [address] [place], [place] [phone] Timing Adjuster 08/08/22 Randa Rowell, DO [address] [place] [address] [phone] Hematology/Oncology 09/08/22 Sanket Rob, DO [address] [place] [address] Neurology 09/08/22 Conference And Event Organiser Relationship Specialty Start Date End Date JovannyjoanIsrael yanez Hamzah, DO [address] [place] [address] PCP - General Internal Medicine 11/10/19 Laron Arreola 3977 [facility] 102 [place] [address] Orthopedics 11/22/20 Israel Minor MD [address] [place] [address] Cardiology 02/27/22 Eveline Dean, JESSY [address] [place], [place] [phone] Timing Adjuster 08/08/22 Randa Rowell, DO 1946 [facility] 310 [place], [place] [phone] Hematology/Oncology 09/08/22 Sanket Rob, DO [address] [place] [address] Neurology 09/08/22 Conference And Event Organiser Relationship Specialty Start Date End Date Edmond Israel Hamzah, DO [address] [facility] [place] [address] PCP - General Internal Medicine 11/10/19 Laron Arreola [address] [place] [address] Orthopedics 11/22/20 Israel Minor MD [address] [place] [address] Cardiology 02/27/22 Eveline Dean, JESSY [address] [place] [address] Timing Adjuster 08/08/22 Valentinolivia Randa, DO [address] [place] [address] [phone] Hematology/Oncology 09/08/22 Sanket Rob, DO [address] [place] [address] Neurology 09/08/22 Conference And Event Organiser Relationship Specialty Start [place]ruitt [place] [address] [place] [address] PCP - General Internal Medicine 11/10/19 Laron Arreola [address] [place] [address] [phone] Orthopedics 11/22/20 Israel Minor MD [address] [place], [place] [phone] Cardiology 02/27/22 Eveline Dean, JESSY [address] [place] [address] Timing Adjuster 08/08/22 Randa Rowell, DO [address] [place] [address] [phone] Hematology/Oncology 09/08/22 Sanket Rob, DO [address] [place] [address] Neurology 09/08/22 Conference And Event Organiser Relationship Specialty Start Date End Date Israel Pruitt DO [address] [place] [address] PCP - General Internal Medicine 11/10/19 Laron Arreola 3977 [facility] 102 [place] [address] Orthopedics 11/22/20 Israel Minor MD [address] [place], [place] 159449 [phone] Cardiology 02/27/22 Eveline Dean, JESSY [address] [place], [place] [phone] Timing Adjuster 08/08/22 Randa Rowell DO [address] [place] [address] [phone] Hematology/Oncology 09/08/22 Sanket Rob DO [address] [place] [address] Neurology 09/08/22 Conference And Event Organiser Relationship Specialty Start Date End Date Israel Pruitt DO [address] [place] [address] PCP - General Internal Medicine 11/10/19 Laron Arreola [address] [facility] [address] [facility] 102 [place] [address] Orthopedics 11/22/20 Israel Minor MD [address] [place] 245353 [phone] Cardiology 02/27/22 Eveline Dean RN [address] [place] [address] Timing Adjuster 08/08/22 Randa Rowell DO [address] [place] [address] [phone] Hematology/Oncology 09/08/22 Sanket Rob DO [address] [place] [address] Neurology 09/08/22 Ruby Duff RN [address] [place] [address] Specialty Sales Representative Supervisor Hematology/Oncology 04/03/23 Conference And Event Organiser Relationship Specialty Start Date End Date Edmond Israel Hamzah, DO [address] [place] [address] PCP - General Internal Medicine 11/10/19 Laron Arreola [address] [place] [address] Orthopedics 11/22/20 Israel Minor MD [address] [place], [place] 689416 Cardiology 02/27/22 Eveline Dean, JESSY [address] [place], [place] 0786131 Timing Adjuster 08/08/22 Randa Rowell, DO 1946 [facility] 310 [place], [place] [phone] Hematology/Oncology 09/08/22 Sanket Rob, DO [address] [place] [address] Neurology 09/08/22 Ruby Duff RN [address] [place], [place] 682741 Specialty Sales Representative Supervisor Hematology/Oncology 04/03/23 Conference And Event Organiser Relationship Specialty Start Date End Date Edmond Israel Hamzah, DO [address] [place] [address] PCP - General Internal Medicine 11/10/19 Laron Arreola [address] [place], [place] 0964[address] Orthopedics 11/22/20 Israel Minor MD [address] [place], [place] 96096254 [phone] Cardiology 02/27/22 Eveline Dean, JESSY [address] [place] [address] Timing Adjuster 08/08/22 Randa Rowell, DO [address] [place] [address] [address] [place], [place] [phone] Hematology/Oncology 09/08/22 [facility] [address] [place] [address] Neurology 09/08/22 Ruby Duff RN [address] [place], [place] [phone] Specialty Sales Representative Supervisor Hematology/Oncology 04/03/23 Conference And Event Organiser Relationship Specialty Start Date End Date Israel Pruitt [address] [place] [address] PCP - General Internal Medicine 11/10/19 Laron Arreola 3975 [facility] 102 [place], [place] 141113 Orthopedics 11/22/20 Israel Minor MD [address] [place], [place] 119046 Cardiology 02/27/22 Eveline Dean, JESSY [address] [place] [address] Timing Adjuster 08/08/22 Randa Rowell DO [address] [place] [address] 310 [place], [place] [phone] Hematology/Oncology 09/08/22 Sanket Rob, DO [address] [place] [address] Neurology 09/08/22 Ruby Duff, JESSY [address] [place] [address] Specialty Sales Representative Supervisor Hematology/Oncology 04/03/23 Conference And Event Organiser Relationship Specialty Start Date End Date Israel Pruitt, DO [address] [place] [address] PCP - General Internal Medicine 11/10/19 Laron Arreola 3975 [facility] 102 [place] [address] Orthopedics 11/22/20 Israel Minor MD [address] [place], [place] 448046 Cardiology 02/27/22 Eveline Dean RN [address] [place], [place] [phone] Timing Adjuster 08/08/22 Randa Rowell DO 1946 [facility] 310 [place], [place] [phone] Hematology/Oncology 09/08/22 Sanket Rob, DO [address] [place] [address] Neurology 09/08/22 Ruby Duff RN [address] [place] [address] Specialty Sales Representative Supervisor Hematology/Oncology 04/03/23 Conference And Event Organiser Relationship Specialty Start Date End Date Israel Pruitt, DO [address] [place] [address] PCP - General Internal Medicine 11/10/19 Laron Arreola 4634 [facility] [address] [place], [place] 529453 Orthopedics 11/22/20 Israel Minor MD [address] [place], [place] [phone] Cardiology 02/27/22 Eveline Dean, JESSY [address] [place], [place] [phone] Timing Adjuster 08/08/22 Randa Rowell DO [facility] 310 [place], [place] [phone] Hematology/Oncology 09/08/22 Sanket Rob, [address] [place] [address] Neurology 09/08/22 Ruby Duff, JESSY [address] [place] [address] Specialty Sales Representative Supervisor Hematology/Oncology 04/03/23 Conference And Event Organiser Relationship Specialty Start Date End Date Israel Pruitt [address] [place] [address] PCP - General Internal Medicine 11/10/19 Laron Arreola 3178 [facility] 102 [place], [place] 215993 Orthopedics 11/22/20 Israel Minor MD [address] [place], [place] [id number] Cardiology 02/27/22 Eveline Dean, JESSY [address] [place] [address] Timing Adjuster 08/08/22 Randa Rowell DO 6 [facility] 310 [place] [address] Hematology/Oncology 09/08/22 Sanket Rob, DO [address] [place] [address] Neurology 09/08/22 Ruby Duff RN [address] [place] [address] Specialty Sales Representative Supervisor Hematology/Oncology 04/03/23 Conference And Event Organiser Relationship Specialty Start Date End Date Israel Pruitt DO [address] [place] [address] PCP - General Internal Medicine 11/10/19 Laron Arreola 3975 [facility] 102 [place], [place] [phone] Orthopedics 11/22/20 Israel Minor MD [address] [place], [place] 742416 Cardiology 02/27/22 Eveline Dean, JESSY [address] [place] [address] Timing Adjuster 08/08/22 Randa Rowell DO 1945 [facility] 310 [place], [place] [phone] Hematology/Oncology 09/08/22 Sanket Rob, DO [address] [place] [address] Neurology 09/08/22 Ruby Duff RN [address] [place] [address] Specialty Sales Representative Supervisor Hematology/Oncology 04/03/23 Conference And Event Organiser Relationship Specialty Start Date End Date Israel Pruitt DO [address] [place] [address] PCP - General Internal Medicine 11/10/19 Laron Arreola [address] [facility] [address] [place] [address] Orthopedics 11/22/20 Israel Minor MD [address] [place], [place] 573226 Cardiology 02/27/22 Randa Rowell, DO 194 [facility] [address] [place], [place] [phone] Hematology/Oncology 09/08/22 Sanket Rob, [address] [place] [address] Neurology 09/08/22 Ruby Duff, JESSY [address] [facility], [place] 022181 Specialty Sales Representative Supervisor Hematology/Oncology 04/03/23 Ginna Em, RN [address] [place] [phone] Timing Adjuster Unspecified 04/15/23 Conference And Event Organiser Relationship Specialty Start Date End Date Israel Pruitt, DO [address] [place] [address] PCP - General Internal Medicine 11/10/19 Laron Arreola [address] [place], [place] 674683 Orthopedics 11/22/20 Israel Minor MD [address] [place], [place] 088526 Cardiology 02/27/22 Randa Rowell, DO 1946 [facility] [address] [place] [address] Hematology/Oncology 09/08/22 Sanket Rob, DO [address] [place] [address] Neurology 09/08/22 Ruby Duff RN [address] [place] [address] Specialty Sales Representative Supervisor Hematology/Oncology 04/03/23 Ginna Em, JESSY [address] [place] [phone] Timing Adjuster Unspecified 04/15/23 Conference And Event Organiser Relationship Specialty Start Date End Date Israel Pruitt DO [address] [place] [address] PCP - General Internal Medicine 11/10/19 Laron Arreola 3975 [facility] 102 [place], [place] 158473 Orthopedics 11/22/20 Israel Minor MD [address] [place], [place] 961256 Cardiology 02/27/22 Randa Rowell DO 6 [facility] 310 [place] [address] Hematology/Oncology 09/08/22 Sanket Rob, DO [address] [place] [address] Neurology 09/08/22 Ruby Duff, JESSY [address] [place] [address] Specialty Sales Representative Supervisor Hematology/Oncology 04/03/23 Ginna Em, RN [address] [place] [address] Timing Adjuster Unspecified 04/15/23 Conference And Event Organiser Relationship Specialty Start Date End Date JovannyjoanIsrael yanez Hamzah, DO [address] [place] [address] PCP - General Internal Medicine 11/10/19 Laron Arreola 3972 [facility] 102 [place] [address] Orthopedics 11/22/20 Israel Minor MD [address] [place], [place] 399366 Cardiology 02/27/22 Randa Rowell, DO 1946 [facility] 310 [place], [place] [phone] Hematology/Oncology 09/08/22 Sanket Rob, [address] [place] [address] Neurology 09/08/22 Ruby Duff, JESSY [address] [place] [address] Specialty Sales Representative Supervisor Hematology/Oncology 04/03/23 Ginna Em RN [address] [place] [address] Timing Adjuster Unspecified 04/15/23 Conference And Event Organiser Relationship Specialty Start Date End Date Israel Pruitt, DO [address] [place] [address] PCP - General Internal Medicine 11/10/19 Laron Arreola 3979 [facility] 102 [place] [address] Orthopedics 11/22/20 Israel Minor MD [address] [place], [place] [phone] Cardiology 02/27/22 Randa Rowell DO 1946 [facility] 310 [place], [place] [phone] Hematology/Oncology 09/08/22 Sanket Rob, DO [address] [place] [address] Neurology 09/08/22 Ruby Duff RN [address] [place] [address] Specialty Sales Representative Supervisor Hematology/Oncology 04/03/23 Ginna Em RN 6000 [place] [address] Timing Adjuster Unspecified 04/15/23 Conference And Event Organiser Relationship Specialty Start Date End Date Israel Pruitt, DO [address] [place] [address] PCP - General Internal Medicine 11/10/19 Laron Arreola [address] [place] [address] 102 [place], [place] [phone] Orthopedics 11/22/20 Israel Minor MD [address] [place], [place] 230906 Cardiology 02/27/22 Sanket Rob, DO [address] [place] [address] Neurology 09/08/22 Ruby Duff, RN [address] [place] [address] Specialty Sales Representative Supervisor Hematology/Oncology 04/03/23 Ginna Em RN [address] [place] [address] Timing Adjuster Unspecified 04/15/23 Conference And Event Organiser Relationship Specialty Start Date End Date Israel Pruitt DO [address] [place] [address] PCP - General Internal Medicine 11/10/19 Laron Arreola [address] [place], [place] 493203 Orthopedics 11/22/20 Israel Minor MD [address] [place], [place] [id number] Cardiology 02/27/22 Sanket Rob DO [address] [place] [address] Neurology 09/08/22 Ruby Duff, RN [address] [place] [address] Specialty Sales Representative Supervisor Hematology/Oncology 04/03/23 Ginna Em, JESSY [address] [place] [address] Timing Adjuster Unspecified 04/15/23 Conference And Event Organiser Relationship Specialty Start Date End Date Israel Pruitt DO [address] [facility] [place] [place] [address] PCP - General Internal Medicine 11/10/19 Laron Arreola [address] [place], [place] 893213 Orthopedics 11/22/20 Israel Minor MD [address] [place] [address] [place], [place] 304603 [phone] Cardiology 02/27/22 Sanket Rob DO [address] [place] [address] Neurology 09/08/22 Ruby Duff RN [address] [place] [address] Specialty Sales Representative Supervisor Hematology/Oncology 04/03/23 Ginna Em, RN [address] [place], [place] [phone] Timing Adjuster Unspecified 04/15/23 Conference And Event Organiser Relationship Specialty Start Date End Date Zabrinarenata Israel Hamzah, DO [address] [facility] [place] [address] PCP - General Internal Medicine 11/10/19 Laron Arreola [address] [place], [place] 602903 Orthopedics 11/22/20 Israel Minor MD [address] [place] [address] Cardiology 02/27/22 Sanket Rob, DO [address] [place] [address] Neurology 09/08/22 Ruby Duff RN [address] [place] [address] Specialty Sales Representative Supervisor Hematology/Oncology 04/03/23 Ginna Em, RN [address] [place], [place] [id number] Timing Adjuster Unspecified 04/15/23 Conference And Event Organiser Relationship Specialty Start Date End Date Edmond Israel Hamzah, DO [address] [place] [address] PCP - General Internal Medicine 11/10/19 Laron Arreola [address] [place] [address] Orthopedics 11/22/20 Israel Minor MD [address] [place], [place] [address] [phone] Cardiology 02/27/22 Sanket Rob, DO [address] [facility] [place] [address] Neurology 09/08/22 Ruby Duff, JESSY [address] [place] [address] Specialty Sales Representative Supervisor Hematology/Oncology 04/03/23 Ginna Em RN [address] [place], [place] [id number] Timing Adjuster Unspecified 04/15/23 Conference And Event Organiser Relationship Specialty Start Date End Date Israel Pruitt [address] [place], [place] [id number] PCP - General Internal Medicine 11/10/19 Laron Arreola [address] [id number] [phone] Orthopedics 11/22/20 Israel Minor MD [address] [place] [address] Cardiology 02/27/22 Sanket Rob, DO [address] [facility] [place] [address] Neurology 09/08/22 Ruby Duff, JESSY [address] [place] [address] Specialty Sales Representative Supervisor Hematology/Oncology 04/03/23 Ginna Em RN [address] [place], [place] [id number] Timing Adjuster Unspecified 04/15/23 Conference And Event Organiser Relationship Specialty Start Date End Date Israel Pruitt, DO [address] [facility], [place] [id number] PCP - General Internal Medicine 11/10/19 Laron Arreola [address] [place], [place] [address] [phone] Orthopedics 11/22/20 Israel Minor MD [address] [place], [place] [id number] [phone] Cardiology 02/27/22 Sanket Rob DO [address] [place] [address] Neurology 09/08/22 Ruby Duff RN [address] [place] [address] Specialty Sales Representative Supervisor Hematology/Oncology 04/03/23 Ginna Em, JESSY [address] [place] [id number] Timing Adjuster Unspecified 04/15/23 Conference And Event Organiser Relationship Specialty Start Date End Date Israel Pruitt, DO [address] [facility] [place] [address] PCP - General Internal Medicine 11/10/19 Laron Arreola [address] [address] [address] [place] [address] Orthopedics 11/22/20 Israel Minor MD [address] [place] [address] Cardiology 02/27/22 Sanket Rob DO [address] [place] [address] Neurology 09/08/22 Ruby Duff RN [address] [place] [address] Specialty Sales Representative Supervisor Hematology/Oncology 04/03/23 Ginna Em, RN [address] [place], [place] [phone] Timing Adjuster Unspecified 04/15/23 Conference And Event Organiser Relationship Specialty Start Date End Date Israel Pruitt, DO [address] [facility] [place] [address] PCP - General Internal Medicine 11/10/19 Laron Arreola [address] [place] [address] Orthopedics 11/22/20 Israel Minor MD [address] [place], [place] [id number] Cardiology 02/27/22 Sanket Rob, DO [address] [place] [address] Neurology 09/08/22 Ruby Duff RN [address] [place] [address] Specialty Sales Representative Supervisor Hematology/Oncology 04/03/23 Ginna Em, RN [address] [place] [address] Timing Adjuster Unspecified 04/15/23 Conference And Event Organiser Relationship Specialty Start Date End Date Israel Pruitt DO [address] [place] [address] PCP - General Internal Medicine 11/10/19 Laron Arreola [address] [place] [address] Orthopedics 11/22/20 Israel Minor MD [address] [place], [place] [id number] Cardiology 02/27/22 Sanket Rob, DO [address] [place] [address] Neurology 09/08/22 Ruby Duff, JESSY [address] [place], [place] 190851 Specialty Sales Representative Supervisor Hematology/Oncology 04/03/23 Ginna Em RN [address] [place], [place] [phone] Timing Adjuster Unspecified 04/15/23 Team Status: Active Member Role Status Dates Dr. Arturo Guerrero MD Family Provider Active Hamzah Pruitt Primary Care Provider Active Team Status: Inactive Member Role Status Dates Dr. Ned Dinh MD Attending Provider Active Team Status: Active Member Role Status Dates [facility] Attending Provider Active Team Status: Active Member Role Status Dates Dr. Pedro Diaz MD Emergency Provider Active Edmond Goodson Primary Care Provider Active Dr. Mary Prather MD Admit Provider, Attending Provid er Active Conference And Event Organiser Relationship Specialty Start Date End Date Edmond Israel Hamzah, [address] [place] [address] PCP - General Internal Medicine 11/10/19 Laron Arreola [address] [facility] [address] [place], [place] [address] Orthopedics 11/22/20 Israel Minor MD [address] [place], [place] [id number] Cardiology 02/27/22 Sanket Rob, DO [address] [place] [address] Neurology 09/08/22 Ruby Duff, JESSY [address] [place] [address] Specialty Sales Representative Supervisor Hematology/Oncology 04/03/23 Ginna Em, JESSY [address] [place] [address] Timing Adjuster Unspecified 04/15/23 Team Status: Active Member Role Status Dates Dr. Homer Khan MD Attending Provider Active Team Status: Active Member Role Status Dates Dr. Cristobal Villafuerte MD Attending Provider Activ e Team Status: Active Member Role Status Dates Dr. Pedro Diaz MD Emergency Provider Active Hamzah, Tirmonia Primary Care Provider Active Dr. Mray Prather MD Admit Provider, At tending Provider, Other Provider Active Team Status: Active Member Role Status Dates Dr. Pedro Diaz MD Emergency Provider Active [place], Tirmonia Primary Care Provider Active Dr. Mary Prather MD Admit Provider, Other Provider A ctive Dr. Marshal Rebolledo MD Attending Provider, Other Provi lyn Active Team Status: Active Member Role Status Dates Dr. Pedro Diaz MD Emergency Provider Active Hamzah, Tirmonia Primary Care Provider Active Dr. Mary Prather MD Admit Provider, Other Provider A ctive Dr. Marshal Rebolledo MD Attending Provider, Other Provi lyn Active Dr. Homer [place] MD Other Provider Active Team Status: Inactive Member Role Status Dates Dr. Pedro Diaz MD Emergency Provider Active Hamzah, Tirmonia Primary Care Provider Active Dr. Mary Prather MD Admit Provider, Other Provider A ctive Dr. Marshal Rebolledo MD Attending Provider Active Dr. Homer [place] MD Other Provider Active Conference And Event Organiser Relationship Specialty Start Date End Date Israel Pruitt DO [address] [place] [address] PCP - General Internal Medicine 11/10/19 Laron Arreola [address] [place] [address] Orthopedics 11/22/20 Israel Minor MD [address] [place], [place] [address] Cardiology 02/27/22 Sanket Rob DO [address] [place] [address] Neurology 09/08/22 Ruby Duff, JSESY [address] [facility] [address], [place] [phone] Specialty Sales Representative Supervisor Hematology/Oncology 04/03/23 Ginna Em RN [address] [place], [place] [phone] Timing Adjuster Unspecified 04/15/23 Ileana Sosa RN Specialty Sales Representative Supervisor 05/19/23 Conference And Event Organiser Relationship Specialty Start Date End Date Israel Pruitt DO [address] [place] [address] PCP - General Internal Medicine 11/10/19 Laron Arreola [address] [facility] 102 [place], [place] [address] Orthopedics 11/22/20 Israel Minor MD [address] [place] [address] Cardiology 02/27/22 Randa Rowell DO [facility]6 [facility] [address] [place], [place] [address] Hematology/Oncology 09/08/22 05/04/23 Sanket Rob DO [address] [place] [address] Neurology 09/08/22 Ruby Duff, JESSY [address] [place], [place] [address] Specialty Sales Representative Supervisor Hematology/Oncology 04/03/23 Ginna Em, RN [address] [place] [address] Timing Adjuster Unspecified 04/15/23 Ileana Sosa RN Specialty Sales Representative Supervisor 05/19/23 Conference And Event Organiser Relationship Specialty Start Date End Date Israel Pruitt DO [address] [place] [address] PCP - General Internal Medicine 11/10/19 Laron Arreola [address] [facility] [address] [place], [place] [address] Orthopedics 11/22/20 Israel Minor MD [address] [place], [place] [phone] Cardiology 02/27/22 Sanket Rob DO [address] [place] [address] Neurology 09/08/22 Ruby Duff, JESSY [address] [place], [place] [phone] Specialty Sales Representative Supervisor Hematology/Oncology 04/03/23 Ginna Em, RN [address] [place] [address] Timing Adjuster Unspecified 04/15/23 Ileana Sosa RN Specialty Sales Representative Supervisor 05/19/23 Conference And Event Organiser Relationship Specialty Start Date End Date Israel Pruitt DO [address] [place] [address] PCP - General Internal Medicine 11/10/19 Laron Arreola [address] [facility] [address] [facility] [address] [place], [place] [address] Orthopedics 11/22/20 Israel Minor MD [address] [place], [place] 8[address]796 Cardiology 02/27/22 Sanket Rob, [address] [place] [address] Neurology 09/08/22 Ruby Duff RN [address] [place] 14[address]81 Specialty Sales Representative Supervisor Hematology/Oncology 04/03/23 Ginna Em, JESSY [address] [place], [place] [phone] Timing Adjuster Unspecified 04/15/23 Ileana Sosa RN Specialty Sales Representative Supervisor 05/19/23 Conference And Event Organiser Relationship Specialty Start Date End Date Israel Pruitt [address] [place] [address] PCP - General Internal Medicine 11/10/19 Laron Arreola [address] [facility] [address] [address] Orthopedics 11/22/20 Israel Minor MD [address] [place], [place] 343546 Cardiology 02/27/22 Sanket Rob DO [address] [place] [address] Neurology 09/08/22 Ruby Duff RN [address] [place], [place] 9[address]111 Specialty Sales Representative Supervisor Hematology/Oncology 04/03/23 Ginna Em, RN [address] [place], [place] [phone] Timing Adjuster Unspecified 04/15/23 Ileana Sosa RN Specialty Sales Representative Supervisor 05/19/23 Conference And Event Organiser Relationship Specialty Start Date End Date Israel Pruitt DO [address] [place] [address] PCP - General Internal Medicine 11/10/19 Laron Arreola [address] [facility] [address] [place] [address] Orthopedics 11/22/20 Israel Minor MD [address] [place] [address] Cardiology 02/27/22 Sanket Rob, [address] [place] [address] Neurology 09/08/22 Ruby Duff RN [address] [facility], [place] [id number] Specialty Sales Representative Supervisor Hematology/Oncology 04/03/23 Ginna Em, RN [address] [place], [place] [phone] Timing Adjuster Unspecified 04/15/23 Doup, Ileana, RN Specialty Sales Representative Supervisor 05/19/23 Conference And Event Organiser Relationship Specialty Start Date End Date Israel Pruitt DO [address] [place] [address] PCP - General Internal Medicine 11/10/19 06/14/23 Lar[address] Ar[address]ola [address] [facility] [address] [address] Orthopedics 11/22/20 Israel Minor MD [address] [place], [place] [address]196 Cardiology 02/27/22 Sanket Rob [address] [place] [address] Neurology 09/08/22 Ruby Duff, JESSY [address] [place], [place] [phone] Specialty Sales Representative Supervisor Hematology/Oncology 04/03/23 Ginna Em, RN [address] [place], [place] 9839131 Timing Adjuster Unspecified 04/15/23 Ileana Sosa RN Specialty Sales Representative Supervisor 05/19/23 Conference And Event Organiser Relationship Specialty Start Date End Date Ronaldo Pleitez MD [address] [place] [address] PCP - General Internal Medicine 06/15/23 Laron Arreola [address] [facility] [address] [facility] 102 [place] [address] Orthopedics 11/22/20 Israel Minor MD [address] [place] [address] Cardiology 02/27/22 Sanket Rob DO [address] [place] [address] Neurology 09/08/22 Ruby Duff, JESSY [address] [place], [place] [id number] Specialty Sales Representative Supervisor Hematology/Oncology 04/03/23 Ginna Em RN [address] [place], [place] [phone] Timing Adjuster Unspecified 04/15/23 Ileana Sosa RN Specialty Sales Representative Supervisor 05/19/23 Team Status: Active Member Role Status Dates Dr. Arturo Guerrero MD Family Provider Active Out [facility] Doctor Primary Care Provider Active Team Status: Active Member Role Status Dates Dr. Homer Khan MD Attending Provider Active Dr. Pedro Diaz MD Referring Provider Active Team Status: Active Member Role Status Dates Dr. Cristobal Villafuerte MD Attending Provider, Refe rring Provider Active Team Status: Inactive Member Role Status Dates [facility] Attending Provider Active Team Status: Active Member Role Status Dates edmond saravia Attending Provider Active Team Status: Inactive Member Role Status Dates Edmond Goodson Primary Care Provider Active Dr. Baljinder Galloway DO Attending Provider, Referring Prov ider Active Team Status: Active Member Role Status Dates Out [facility] Doctor Primary Care Provider Active Ronaldo CASSIDY MD Attending Provider, Referring Provider Active Team Status: Inactive Member Role Status Dates edmond saravia Attending Provider Active Team Status: Inactive Member Role Status Dates Out [facility] Doctor Primary Care Provider Active Ronaldo CASSIDY MD Attending Provider, Referring Provider Active Conference And Event Organiser Relationship Specialty Start Date End Date Ronaldo Pleitez MD [address] [place] [address] PCP - General Internal Medicine 06/15/23 Laron Arreola 3975 [facility] 102 [place], [place] [address] Orthopedics 11/22/20 Israel Minor MD [address] [place] [address] Cardiology 02/27/22 Sanket Rob, [address] [place] [address] Neurology 09/08/22 Ruby Duff RN [address] [place], [place] [phone] Specialty Sales Representative Supervisor Hematology/Oncology 04/03/23 Ginna Em RN [address] [place], [place] 9568831 Timing Adjuster Unspecified 04/15/23 Ileana Sosa RN Specialty Sales Representative Supervisor 05/19/23 Conference And Event Organiser Relationship Specialty Start Date End Date Ronaldo Pleitez MD [address] [place], [place] [address]71 PCP - General Internal Medicine 06/15/23 Laron Arreola [address] 3469[address] Orthopedics 11/22/20 Israel Minor MD [address] [place] [address] Cardiology 02/27/22 Sanket Rob DO [address] [place] [address] Neurology 09/08/22 Ruby Duff RN [address] [place], [place] 369551 Specialty Sales Representative Supervisor Hematology/Oncology 04/03/23 Ginna Em, RN [address] [place] [address] Timing Adjuster Unspecified 04/15/23 Ileana Sosa RN Specialty Sales Representative Supervisor 05/19/23 Conference And Event Organiser Relationship Specialty Start Date End Date Ronaldo Pleitez MD [address] [place], [place] 489871 PCP - General Internal Medicine 06/15/23 Laron Arreola [address] [facility] [address] [place] [address] Orthopedics 11/22/20 Israel Minor MD [address] [place] [address] Cardiology 02/27/22 Sanket Rob DO [address] [place] [address] Neurology 09/08/22 Ruby Duff RN [address] [place] [address] Specialty Sales Representative Supervisor Hematology/Oncology 04/03/23 Ginna Em, RN [address] [place], [place] 6365331 Timing Adjuster Unspecified 04/15/23 Ileana Sosa RN Specialty Sales Representative Supervisor 05/19/23 Conference And Event Organiser Relationship Specialty Start Date End Date Ronaldo Pleitez MD [address] [place], [place] 394621 PCP - General Internal Medicine 06/15/23 Laron Arreola 39[address] [facility] 102 [place], [place] [address] Orthopedics 11/22/20 Israel Minor MD [address] [place] [address] Cardiology 02/27/22 Sanket Rob, [address] [place] [address] Neurology 09/08/22 Ruby Duff, JESSY [address] [facility] [place] [place] 400[address] Specialty Sales Representative Supervisor Hematology/Oncology 04/03/23 Ginna Em, RN [address] [place], [place] 7872431 Timing Adjuster Unspecified 04/15/23 Ileana Sosa RN Specialty Sales Representative Supervisor 05/19/23 Conference And Event Organiser Relationship Specialty Start Date End Date Ronaldo Pleitez MD [address] [place] [address] PCP - General Internal Medicine 06/15/23 Laron Arreola [address] [facility] [address] [address] Orthopedics 11/22/20 Israel Minor MD [address] [place] [address] Cardiology 02/27/22 Sanket Rob DO [address] [place] [address] Neurology 09/08/22 Ruby Duff, JESSY [address] [facility] [place], [place] 11932691 Specialty Sales Representative Supervisor Hematology/Oncology 04/03/23 Ginna Em, RN [address] [place] [address] Timing Adjuster Unspecified 04/15/23 Ileana Sosa RN Specialty Sales Representative Supervisor 05/19/23 Conference And Event Organiser Relationship Specialty Start Date End Date Ronaldo Pleitez MD [address] [place], [place] 33870691 PCP - General Internal Medicine 06/15/23 Laron Arreola [address] [facility] [address] [place], [place] [address] Orthopedics 11/22/20 Israel Minor MD [address] [place], [place] 093896 Cardiology 02/27/22 Sanket Rob DO [address] [place] [address] Neurology 09/08/22 Ruby Duff, JESSY [address] [place], [place] [phone] Specialty Sales Representative Supervisor Hematology/Oncology 04/03/23 Ginna Em, RN [address] [place] [address] Timing Adjuster Unspecified 04/15/23 Ileana Sosa RN Specialty Sales Representative Supervisor 05/19/23 Conference And Event Organiser Relationship Specialty Start Date End Date Israel Pruitt DO [address] [place] [address] PCP - General Internal Medicine 11/10/19 06/14/23 Laron Arreola [address] 6834[address] Orthopedics 11/22/20 Israel Minor MD [address] [place], [place] 371096 Cardiology 02/27/22 Sanket Rob DO [address] [place] [address] Neurology 09/08/22 Ruby Duff RN [address] [place], [place] [phone] Specialty Sales Representative Supervisor Hematology/Oncology 04/03/23 Ginna Em, RN [address] [place], [place] 0479331 Timing Adjuster Unspecified 04/15/23 Ileana Sosa RN Specialty Sales Representative Supervisor 05/19/23 Conference And Event Organiser Relationship Specialty Start Date End Date Israel Pruitt DO [address] [place] [address] PCP - General Internal Medicine 11/10/19 06/14/23 Laron Arreola [address] [address]668[address] Orthopedics 11/22/20 Israel Minor MD [address] [place], [place] 529696 Cardiology 02/27/22 Randa Rowell DO 1946 [facility] [address] [place], [place] 430105 Hematology/Oncology 09/08/22 05/04/23 Sanket Rob DO [address] [place] [address] Neurology 09/08/22 Ruby Duff, JESSY [address] [facility] [place], [place] 38939691 Specialty Sales Representative Supervisor Hematology/Oncology 04/03/23 Ginna Em RN [address] [place], [place] 2687831 Timing Adjuster Unspecified 04/15/23 Conference And Event Organiser Relationship Specialty Start Date End Date Israel Pruitt DO [address] [place] [address] PCP - General Internal Medicine 11/10/19 06/14/23 Ronaldo Pleitez MD [address] [place], [place] 756821 PCP - General Internal Medicine 06/15/23 Laron Arreola [address] [facility] 102 [place] [address] Orthopedics 11/22/20 Israel Minor MD [address] [place] [address] Cardiology 02/27/22 Sanket Rob DO [address] [place] [address] Neurology 09/08/22 Ruby Duff, JESSY [address] [facility] [place], [place] [address]41 Specialty Sales Representative Supervisor Hematology/Oncology 04/03/23 Ginna Em, RN [address] [place] [address] Timing Adjuster Unspecified 04/15/23 Ileana Sosa RN Specialty Sales Representative Supervisor 05/19/23 Conference And Event Organiser Relationship Specialty Start Date End Date Ronaldo Pleitez MD [address] [place], [place] [id number] PCP - General Internal Medicine 06/15/23 Laron Arreola [address] [facility] [address] [place], [place] [address] Orthopedics 11/22/20 Israel Minor MD [address] [place] [address] Cardiology 02/27/22 Sanket Rob DO [address] [place] [address] Neurology 09/08/22 Ruby Duff RN [address] [place], [place] [id number] Specialty Sales Representative Supervisor Hematology/Oncology 04/03/23 Ginna Em, RN [address] [place] [address] Timing Adjuster Unspecified 04/15/23 Ileana Sosa RN Specialty Sales Representative Supervisor 05/19/23 Conference And Event Organiser Relationship Specialty Start Date End Date Ronaldo Pleitez MD [address] [place], [place] [id number] PCP - General Internal Medicine 06/15/23 Laron Arreola [address] [facility] [address] [facility] 102 [place], [place] 449[address] Orthopedics 11/22/20 Israel Minor MD [address] [place], [place] 678656 Cardiology 02/27/22 Sanket Rob DO [address] [place] [address] Neurology 09/08/22 Ruby Duff, JESSY [address] [facility] [place], [place] 884231 Specialty Sales Representative Supervisor Hematology/Oncology 04/03/23 Ginna Em, RN [address] [place], [place] 7103331 Timing Adjuster Unspecified 04/15/23 Ileana Sosa, JESSY Specialty Sales Representative Supervisor 05/19/23 Conference And Event Organiser Relationship Specialty Start Date End Date Ronaldo Pleitez MD [address] [place] [address] PCP - General Internal Medicine 06/15/23 Laron Arreola [address] [facility] [address] [facility] [address] [place] [address] Orthopedics 11/22/20 Israel Minor MD [address] [place] [address] Cardiology 02/27/22 Sanket Rob DO [address] [place] [address] Neurology 09/08/22 Ruby Duff, JESSY [address] [place], [place] 804321 Specialty Sales Representative Supervisor Hematology/Oncology 04/03/23 Ginna Em, RN [address] [place] [address] Timing Adjuster Unspecified 04/15/23 Ileana Sosa RN Specialty Sales Representative Supervisor 05/19/23 Conference And Event Organiser Relationship Specialty Start Date End Date Ronaldo Pleitez MD [address] [place], [place] [id number] PCP - General Internal Medicine 06/15/23 Laron Arreola [address] [id number] Orthopedics 11/22/20 Israel Minor MD [address] [place], [place] [id number] Cardiology 02/27/22 Sanket Rob DO [address] [place] [address] Neurology 09/08/22 Ruby Duff, JESSY [address] [place], [place] [id number] Specialty Sales Representative Supervisor Hematology/Oncology 04/03/23 Ginna Em, RN [address] [place] [address] Timing Adjuster Unspecified 04/15/23 Ileana Sosa RN Specialty Sales Representative Supervisor 05/19/23 Conference And Event Organiser Relationship Specialty Start Date End Date Ronaldo Pleitez MD [address] [place] [address] PCP - General Internal Medicine 06/15/23 Laron Arreola [address] [facility] [address] [address] Orthopedics 11/22/20 Israel Minor MD [address] [place] [address] Cardiology 02/27/22 Sanket Rob DO [address]8 [place] [address] Neurology 09/08/22 Ruby Duff, JESSY [address] [facility] [place] [address] Specialty Sales Representative Supervisor Hematology/Oncology 04/03/23 Ginna Em, RN [address] [place], [place] 956[address]31 Timing Adjuster Unspecified 04/15/23 Ileana Sosa RN Specialty Sales Representative Supervisor 05/19/23 Conference And Event Organiser Relationship Specialty Start Date End Date Ronaldo Pleitez MD [address] [place] [address] PCP - General Internal Medicine 06/15/23 Laron Arreola [address] [facility] [address] [address]67[address] Orthopedics 11/22/20 Israel Minor MD [address] [place], [place] 306566 Cardiology 02/27/22 Sanket Rob, [address] [place] [address] Neurology 09/08/22 Ruby Duff, RN [address] [place] [place], [place] 722661 Specialty Sales Representative Supervisor Hematology/Oncology 04/03/23 Ginna Em, RN [address] [place] [address] Timing Adjuster Unspecified 04/15/23 Ileana Sosa RN Specialty Sales Representative Supervisor 05/19/23 Conference And Event Organiser Relationship Specialty Start Date End Date Ronaldo Pleitez MD [address] [place], [place] 565621 PCP - General Internal Medicine 06/15/23 Laron Arreola 3975 [facility] 102 [place] [address] Orthopedics 11/22/20 Israel Minor MD [address] [place] [address] Cardiology 02/27/22 Sanket Rob DO [address] [place] [address] Neurology 09/08/22 Ruby Duff RN [address] [place], [place] [id number] Specialty Sales Representative Supervisor Hematology/Oncology 04/03/23 Ginna Em RN [address] [place] [address] Timing Adjuster Unspecified 04/15/23 Ileana Sosa RN Specialty Sales Representative Supervisor 05/19/23 Conference And Event Organiser Relationship Specialty Start Date End Date Ronaldo Pleitez MD [address] [place], [place] 010231 PCP - General Internal Medicine 06/15/23 Laron Arreola [address] [place] [address] Orthopedics 11/22/20 Israel Minor MD [address] [place], [place] 418456 Cardiology 02/27/22 Sanket Rob DO [address] [place] [address] Neurology 09/08/22 Ruby Duff, JESSY [address] [place] [address] Specialty Sales Representative Supervisor Hematology/Oncology 04/03/23 Ginna Em, RN [address] [place] [id number] Timing Adjuster Unspecified 04/15/23 Ileana Sosa RN Specialty Sales Representative Supervisor 05/19/23 Conference And Event Organiser Relationship Specialty Start Date End Date Ronaldo Pleitez MD [address] [place] [address] PCP - General Internal Medicine 06/15/23 Laron Arreola [address] [facility] [address] [facility] [address] [place] [address] Orthopedics 11/22/20 Israel Minor MD [address] [place] [address] Cardiology 02/27/22 Sanket Rob DO [address] [place] [address] Neurology 09/08/22 Ruby Duff RN [address] [place], [place] 762831 Specialty Sales Representative Supervisor Hematology/Oncology 04/03/23 Ginna Em, RN [address] [place] [address] Timing Adjuster Unspecified 04/15/23 Ileana Sosa RN Specialty Sales Representative Supervisor 05/19/23 Conference And Event Organiser Relationship Specialty Start Date End Date Ronaldo Pleitez MD [address] [place], [place] [id number] PCP - General Internal Medicine 06/15/23 Laron Arreola [address] 569713 Orthopedics 11/22/20 Israel Minor MD [address] [place] [address] Cardiology 02/27/22 Sanket Rob DO [address] [place] [address] Neurology 09/08/22 Ruby Duff, JESSY [address] [place], [place] 834731 Specialty Sales Representative Supervisor Hematology/Oncology 04/03/23 Ginna Em RN [address] [place], [place] [phone] Timing Adjuster Unspecified 04/15/23 Ileana Sosa RN Specialty Sales Representative Supervisor 05/19/23 Conference And Event Organiser Relationship Specialty Start Date End Date Ronaldo Pleitez MD [address] [place] [address] PCP - General Internal Medicine 06/15/23 Laron Arreola [address] [place], [place] [address]003 Orthopedics 11/22/20 Israel Minor MD [address] [place], [place] [address] [address] Cardiology 02/27/22 Sanket Rob DO [address] [place] [address] Neurology 09/08/22 Ruby Duff, JESSY [address] [place], [place] 148271 Specialty Sales Representative Supervisor Hematology/Oncology 04/03/23 Ginna Em, RN [address] [place], [place] [id number] Timing Adjuster Unspecified 04/15/23 Ileana Sosa RN Specialty Sales Representative Supervisor 05/19/23 Conference And Event Organiser Relationship Specialty Start Date End Date Ronaldo Pleitez MD [address] [place], [place] 100481 PCP - General Internal Medicine 06/15/23 Laron Arreola [address] [facility] [address] [address] [place], [place] [address] Orthopedics 11/22/20 Israel Minor MD [address] [place] [address] Cardiology 02/27/22 Sanket Rob DO [address] [place] [address] Neurology 09/08/22 Ruby Duff, JESSY [address] [place], [place] 403561 Specialty Sales Representative Supervisor Hematology/Oncology 04/03/23 Ginna Em RN [address] [place], [place] [phone] Timing Adjuster Unspecified 04/15/23 Ileana Sosa RN Specialty Sales Representative Supervisor 05/19/23 Conference And Event Organiser Relationship Specialty Start Date End Date Ronaldo Pleitez MD [address] [place], [place] 043321 PCP - General Internal Medicine 06/15/23 Laron Arreola [address] [address] Orthopedics 11/22/20 Israel Minor MD [address] [place] [address] Cardiology 02/27/22 Sanket Rob DO [address] [place] [address] Neurology 09/08/22 Ruby Duff, JESSY [address] [facility] [place] [place] 153[address] Specialty Sales Representative Supervisor Hematology/Oncology 04/03/23 Ginna Em RN [address] [place], [place] [phone] Timing Adjuster Unspecified 04/15/23 Ileana Sosa, RN Specialty Sales Representative Supervisor 05/19/23 Conference And Event Organiser Relationship Specialty Start Date End Date Ronaldo Pleitez MD [address] [place], [place] 304791 PCP - General Internal Medicine 06/15/23 Laron Arreola [address] [place], [place] [address]23 Orthopedics 11/22/20 Israel Minor MD [address] [place] [address] Cardiology 02/27/22 Sanket Rob DO [address] [place] [address] Neurology 09/08/22 Ruby Duff, JESSY [address] [place] [address] Specialty Sales Representative Supervisor Hematology/Oncology 04/03/23 Ginna Em RN [address] [place] [address] Timing Adjuster Unspecified 04/15/23 Ileana Sosa RN Specialty Sales Representative Supervisor 05/19/23 Conference And Event Organiser Relationship Specialty Start Date End Date Ronaldo Pleitez MD [address] [place], [place] 197241 PCP - General Internal Medicine 06/15/23 Laron Arreola [address] [place] [address] Orthopedics 11/22/20 Israel Minor MD [address] [place], [place] 704556 Cardiology 02/27/22 Sanket Rob DO [address] [place] [address] Neurology 09/08/22 Ruby Duff RN [address] [place], [place] 009431 Specialty Sales Representative Supervisor Hematology/Oncology 04/03/23 Ginna Em RN [address] [place] [phone] Timing Adjuster Unspecified 04/15/23 Ileana Sosa RN Specialty Sales Representative Supervisor 05/19/23 Conference And Event Organiser Relationship Specialty Start Date End Date Ronaldo Pleitez MD [address] [place], [place] 251671 PCP - General Internal Medicine 06/15/23 Laron Arreola [address] [facility] [address] [place] [address] Orthopedics 11/22/20 Israel Minor MD [address] [place] [address] Cardiology 02/27/22 Sanket Rob DO [address] [place] [address] Neurology 09/08/22 Ruby Duff RN [address] [place], [place] 417691 Specialty Sales Representative Supervisor Hematology/Oncology 04/03/23 Ginna Em, JESSY [address] [place] [address] Timing Adjuster Unspecified 04/15/23 Ileana Sosa RN Specialty Sales Representative Supervisor 05/19/23 Conference And Event Organiser Relationship Specialty Start Date End Date Ronaldo Pleitez MD [address] [place], [place] 828461 PCP - General Internal Medicine 06/15/23 Laron Arreola [address] [place] [address] Orthopedics 11/22/20 Israel Minor MD [address] [place] [address] Cardiology 02/27/22 Sanket Rob DO [address] [place] [address] Neurology 09/08/22 Ruby Duff, JESSY [address] [place], [place] 352581 Specialty Sales Representative Supervisor Hematology/Oncology 04/03/23 Ginna Em, RN [address] [place] [address] Timing Adjuster Unspecified 04/15/23 Ileana Sosa RN Specialty Sales Representative Supervisor 05/19/23 Conference And Event Organiser Relationship Specialty Start Date End Date Ronaldo Pleitez MD [address] [place] [address] PCP - General Internal Medicine 06/15/23 Laron Arreola [address] [place], [place] 179043 Orthopedics 11/22/20 Israel Minor MD [address] [place], [place] 965116 Cardiology 02/27/22 Sanket Rob DO [address] [place] [address] Neurology 09/08/22 Ruby Duff RN [address] [place], [place] 04629691 Specialty Sales Representative Supervisor Hematology/Oncology 04/03/23 Ginna Em RN [address] [place], [place] [phone] Timing Adjuster Unspecified 04/15/23 Ileana Sosa RN Specialty Sales Representative Supervisor 05/19/23 Conference And Event Organiser Relationship Specialty Start Date End Date Ronaldo Pleitez MD [address] [place], [place] 445701 PCP - General Internal Medicine 06/15/23 Laron Arreola [address] [address] Orthopedics 11/22/20 Israel Minor MD [address] [place], [place] 365976 Cardiology 02/27/22 Sanket Rob DO [address] [place] [address] Neurology 09/08/22 Ruby Duff RN [address] [place], [place] 842681 Specialty Sales Representative Supervisor Hematology/Oncology 04/03/23 Ginna Em, RN [address] [place] [address] Timing Adjuster Unspecified 04/15/23 Ileana Sosa RN Specialty Sales Representative Supervisor 05/19/23 Conference And Event Organiser Relationship Specialty Start Date End Date Ronaldo Pleitez MD [address] [place], [place] 810151 PCP - General Internal Medicine 06/15/23 Laron Arreola [address] [facility] [address] [place] [address] Orthopedics 11/22/20 Israel Minor MD [facility] [place] [address] Cardiology 02/27/22 Sanket Rob DO [address] [place] [address] Neurology 09/08/22 Ruby Duff RN [address] [place], [place] 39262691 Specialty Sales Representative Supervisor Hematology/Oncology 04/03/23 Ginna Em, RN [address] [place] [address] Timing Adjuster Unspecified 04/15/23 Ileana Sosa RN Specialty Sales Representative Supervisor 05/19/23 Conference And Event Organiser Relationship Specialty Start Date End Date Ronaldo Pleitez MD [address] [place], [place] 969741 PCP - General Internal Medicine 06/15/23 Laron Arreola [address] [facility] [address] [facility] [address] [place] [address] Orthopedics 11/22/20 Israel Minor MD [address] [place] [address] Cardiology 02/27/22 Sanket Rob DO [address] [place] [address] Neurology 09/08/22 Ruby Duff RN [address] [place] [address] Specialty Sales Representative Supervisor Hematology/Oncology 04/03/23 Ileana Sosa RN Specialty Sales Representative Supervisor 05/19/23 Arabella Moreno, TOOL ROOM SUPERVISOR.TUMOR REGISTRAR [address] [place] [address] Soft Mud Molder Internal Medicine 10/17/24 Conference And Event Organiser Relationship Specialty Start Date End Date Ronaldo Pleitez MD [address] [place] [address] PCP - General Internal Medicine 06/15/23 Laron Arreola [address] [facility] 102 [place] [address] Orthopedics 11/22/20 Israel Minor MD [address] [place] [address] Cardiology 02/27/22 Sanket Rob DO [address] [place] [address] Neurology 09/08/22 Ruby Duff RN [address] [place] [address] Specialty Sales Representative Supervisor Hematology/Oncology 04/03/23 Ileana Sosa, RN Specialty Sales Representative Supervisor 05/19/23 Arabella Moreno, TOOL ROOM SUPERVISOR.TUMOR REGISTRAR [address] [place] [address] Soft Mud Molder Internal Medicine 10/17/24 Conference And Event Organiser Relationship Specialty Start Date End Date Ronaldo Pleitez MD [address] [place], [place] 853031 PCP - General Internal Medicine 06/15/23 Laron Arreola [address] [facility] [address] [place] [address] Orthopedics 11/22/20 Israel Minor MD [address] [place] [address] Cardiology 02/27/22 Sanket Rob DO [address] [place] [address] Neurology 09/08/22 Ruby Duff RN [address] [place] [address] Specialty Sales Representative Supervisor Hematology/Oncology 04/03/23 Ileana Sosa RN Specialty Sales Representative Supervisor 05/19/23 Arabella Moreno, TOOL ROOM SUPERVISOR.TUMOR REGISTRAR [address] [place] [address] Soft Mud Molder Internal Medicine 10/17/24 Conference And Event Organiser Relationship Specialty Start Date End Date Ronaldo Pleitez MD [address] [place], [place] [address]91 PCP - General Internal Medicine 06/15/23 Laron Arreola [address] [facility] [address] [place] [address] Orthopedics 11/22/20 Israel Minor MD [facility] [place] [address] Cardiology 02/27/22 Sanket Rob DO [address] [place] [address] Neurology 09/08/22 Ruby Duff, JESSY [address] [place], [place] 795321 Specialty Sales Representative Supervisor Hematology/Oncology 04/03/23 Ileana Sosa RN Specialty Sales Representative Supervisor 05/19/23 Arabella Moreno, TOOL ROOM SUPERVISOR.TUMOR REGISTRAR [address] [place] [address] Soft Mud Molder Internal Medicine 10/17/24 Conference And Event Organiser Relationship Specialty Start Date End Date Ronaldo Pleitez MD [address] [place], [place] 516991 PCP - General Internal Medicine 06/15/23 Laron Arreola [address] [facility] [address] [facility] 102 [place] [address] Orthopedics 11/22/20 Israel Minor MD [address] [place] 0[address]456 Cardiology 02/27/22 Sanket Rob DO [address] [facility] [address] [place] [address] Neurology 09/08/22 Ruby Duff RN [address] [place] [address] Specialty Sales Representative Supervisor Hematology/Oncology 04/03/23 Ileana Sosa RN Specialty Sales Representative Supervisor 05/19/23 Arabella Moreno, TOOL ROOM SUPERVISOR.[facility] [address] [place], [place] 524341 Soft Mud Molder Internal Medicine 10/17/24 Conference And Event Organiser Relationship Specialty Start Date End Date Ronaldo Pleitez MD [address] [place], [place] 933371 PCP - General Internal Medicine 06/15/23 Laron Arreola [address] [facility] 102 [place], [place] 378293 Orthopedics 11/22/20 Israel Minor MD [address] [place] [address] Cardiology 02/27/22 Sanket Rob DO [address] [facility] 100 [place] [address] Neurology 09/08/22 Ruby Duff RN [address] [place] [address] Specialty Sales Representative Supervisor Hematology/Oncology 04/03/23 Ileana Sosa, RN Specialty Sales Representative Supervisor 05/19/23 Arabella Moreno, TOOL ROOM SUPERVISOR.TUMOR REGISTRAR [address] [place] [address] Soft Mud Molder Internal Medicine 10/17/24 Conference And Event Organiser Relationship Specialty Start Date End Date Ronaldo Pleitez MD [address] [place] [address] PCP - General Internal Medicine 06/15/23 Laron Arreola [address] [facility] 102 [place], [place] 15[address]03 Orthopedics 11/22/20 Israel Minor MD [address] [place], [place] 466[address] Cardiology 02/27/22 Sanket Rob DO [address] [facility] 100 [place] [address] Neurology 09/08/22 Ruby Duff RN [address] [facility] [place] [address] Specialty Sales Representative Supervisor Hematology/Oncology 04/03/23 Ileana Sosa, RN Specialty Sales Representative Supervisor 05/19/23 Arabella Moreno, TOOL ROOM SUPERVISOR.TUMOR REGISTRAR [address] [place] [address] Soft Mud Molder Internal Medicine 10/17/24 Conference And Event Organiser Relationship Specialty Start Date End Date Ronaldo Pleitez MD [address] [place] [address] PCP - General Internal Medicine 06/15/23 Laron Arreola [address] [facility] [address] [place] [address] Orthopedics 11/22/20 Israel Minor MD [address] [place] [address] Cardiology 02/27/22 Sanket Rob DO [address] [facility] [address] [place] [address] Neurology 09/08/22 Ruby Duff RN [address] [place] [address] Specialty Sales Representative Supervisor Hematology/Oncology 04/03/23 Ileana Sosa RN Specialty Sales Representative Supervisor 05/19/23 Arabella Moreno, TOOL ROOM SUPERVISOR.TUMOR REGISTRAR [address] [place] [address] Soft Mud Molder Internal Medicine 10/17/24 Conference And Event Organiser Relationship Specialty Start Date End Date Ronaldo Pleitez MD [address] [place] [address] PCP - General Internal Medicine 06/15/23 Laron Arreola [address] [facility] [address] [place] [address] Orthopedics 11/22/20 Israel Minor MD [address] [place] [address] Cardiology 02/27/22 Sanket Rob DO [address] [facility] [address] [place] [address] Neurology 09/08/22 Ruby Duff RN [address] [place] [address] Specialty Sales Representative Supervisor Hematology/Oncology 04/03/23 Ileana Sosa RN Specialty Sales Representative Supervisor 05/19/23 Arabella Moreno, TOOL ROOM SUPERVISOR.[facility] [address] [place] [address] Soft Mud Molder Internal Medicine 10/17/24 Conference And Event Organiser Relationship Specialty Start Date End Date Ronaldo Pleitez MD [address] [place], [place] 139431 PCP - General Internal Medicine 06/15/23 Laron Arreola [address] [facility] [address] [place], [place] 157723 Orthopedics 11/22/20 Israel Minor MD [address] [place] [address] Cardiology 02/27/22 Sanket Rob DO [address] [facility] 100 [place] [address] Neurology 09/08/22 Ruby Duff RN [address] [facility] [place] [address] Specialty Sales Representative Supervisor Hematology/Oncology 04/03/23 Ileana Sosa, RN Specialty Sales Representative Supervisor 05/19/23 Arabella Moreno, TOOL ROOM SUPERVISOR.TUMOR REGISTRAR [address] [place] [address] Soft Mud Molder Internal Medicine 10/17/24 Conference And Event Organiser Relationship Specialty Start Date End Date Ronaldo Pleitez MD [address] [place] [address] PCP - General Internal Medicine 06/15/23 Laron Arreola [address] [facility] [address] [place] [address] Orthopedics 11/22/20 Israel Minor MD [address] [place] [address] Cardiology 02/27/22 Sanket Rob DO [address] [facility] [address] [place] [address] Neurology 09/08/22 Ruby Duff, JESSY [address] [place] [address] Specialty Sales Representative Supervisor Hematology/Oncology 04/03/23 Ileana Sosa, RN Specialty Sales Representative Supervisor 05/19/23 Arabella Moreno, TOOL ROOM SUPERVISOR.TUMOR REGISTRAR [address] [place] [address] Soft Mud Molder Internal Medicine 10/17/24 Conference And Event Organiser Relationship Specialty Start Date End Date Roanldo Pleitez MD [address] [place] [address] PCP - General Internal Medicine 06/15/23 Laron Arreola [address] [facility] 102 [place] [address] Orthopedics 11/22/20 Israel Minor MD [address] [place] [address] Cardiology 02/27/22 Sanket Rob DO [address] [facility] 100 [place] [address] Neurology 09/08/22 Ruby Duff RN [address] [place], [place] 297351 Specialty Sales Representative Supervisor Hematology/Oncology 04/03/23 Ileana Sosa RN Specialty Sales Representative Supervisor 05/19/23 Arabella Moreno, TOOL ROOM SUPERVISOR.TUMOR REGISTRAR [address] [place] [address] Soft Mud Molder Internal Medicine 10/17/24 Conference And Event Organiser Relationship Specialty Start Date End Date Ronaldo Pleitez MD [address] [place] [address] PCP - General Internal Medicine 06/15/23 Laron Arreola [address] [facility] [address] [place] [address] Orthopedics 11/22/20 Israel Minor MD [address] [place] [address] Cardiology 02/27/22 Sanket Rob DO [address] [facility] [address] [place] [address] Neurology 09/08/22 Ruby Duff, JESSY [address] [place], [place] 004101 Specialty Sales Representative Supervisor Hematology/Oncology 04/03/23 Ileana Sosa RN Specialty Sales Representative Supervisor 05/19/23 Arabella Moreno, TOOL ROOM SUPERVISOR.TUMOR REGISTRAR [address] [place], [place] 449791 Soft Mud Molder Internal Medicine 10/17/24 Conference And Event Organiser Relationship Specialty Start Date End Date Ronaldo Pleitez MD [address] [place], [place] 538491 PCP - General Internal Medicine 06/15/23 Laron Arreola [address] [facility] [address] [place], [place] 38[address]03 Orthopedics 11/22/20 Israel Minor MD [address] [place], [place] 758926 Cardiology 02/27/22 Sanket Rob DO [address] [facility] [address] [place] [address] Neurology 09/08/22 Ruby Duff, JESSY [address] [place], [place] 404241 Specialty Sales Representative Supervisor Hematology/Oncology 04/03/23 Ileana Sosa RN Specialty Sales Representative Supervisor 05/19/23 Arabella Moreno, TOOL ROOM SUPERVISOR.TUMOR REGISTRAR [address] [place] [address] Soft Mud Molder Internal Medicine 10/17/24 Conference And Event Organiser Relationship Specialty Start Date End Date Ronaldo Pleitez MD [address] [place], [place] 740361 PCP - General Internal Medicine 06/15/23 Laron Arreola [address] [facility] [address] [place] [address] Orthopedics 11/22/20 Israel Minor MD [address] [place] [address] Cardiology 02/27/22 Sanket Rob DO [address] [facility] [address] [place] [address] Neurology 09/08/22 Ruby Duff, JESSY [address] [place] [address] Specialty Sales Representative Supervisor Hematology/Oncology 04/03/23 Ileana Sosa, JESSY Specialty Sales Representative Supervisor 05/19/23 Arabella Moreno, TOOL ROOM SUPERVISOR.TUMOR REGISTRAR [address] [place] [address] Soft Mud Molder Internal Medicine 10/17/24 Conference And Event Organiser Relationship Specialty Start Date End Date Ronaldo Pleitez MD [address] [place] [address] PCP - General Internal Medicine 06/15/23 Laron Arreola [address] [place], [place] [address]853 Orthopedics 11/22/20 Israel Minor MD [address] [place] [address] Cardiology 02/27/22 Sanket Rob DO [address] [facility] 100 [place] [address] Neurology 09/08/22 Ruby Duff RN [address] [place] [address] Specialty Sales Representative Supervisor Hematology/Oncology 04/03/23 Ileana Sosa RN Specialty Sales Representative Supervisor 05/19/23 Arabella Moreno, TOOL ROOM SUPERVISOR.TUMOR REGISTRAR [address] [place] [address] Soft Mud Molder Internal Medicine 10/17/24 Conference And Event Organiser Relationship Specialty Start Date End Date Ronaldo Pleitez MD [address] [place], [place] [address]1941 PCP - General Internal Medicine 06/15/23 Laron Arreola [address] [facility] 102 [place] [address] Orthopedics 11/22/20 Israel Minor MD [address] [place] [address] Cardiology 02/27/22 Sanket Rob DO [address] [facility] [facility] [address] [place] [address] Neurology 09/08/22 Ruby Duff RN [address] [place], [place] 046971 Specialty Sales Representative Supervisor Hematology/Oncology 04/03/23 Ileana Sosa, RN Specialty Sales Representative Supervisor 05/19/23 Arabella Moreno, TOOL ROOM SUPERVISOR.TUMOR REGISTRAR [address] [place] [address] Soft Mud Molder Internal Medicine 10/17/24 Conference And Event Organiser Relationship Specialty Start Date End Date Ronaldo Pleitez MD [address] [place] [address] PCP - General Internal Medicine 06/15/23 Laron Arreola [address] [facility] 102 [place], [place] 206923 Orthopedics 11/22/20 Israel Minor MD [address] [place] [address] Cardiology 02/27/22 Sanket Rob DO [address] [facility] 100 [place] [address] Neurology 09/08/22 Ruby Duff RN [address] [place] [place] [address] Specialty Sales Representative Supervisor Hematology/Oncology 04/03/23 Ileana Sosa, RN Specialty Sales Representative Supervisor 05/19/23 Arabella Moreno, TOOL ROOM SUPERVISOR.TUMOR REGISTRAR [address] [place], [place] 621161 Soft Mud Molder Internal Medicine 10/17/24 Conference And Event Organiser Relationship Specialty Start Date End Date Ronaldo Pleitez MD [address] [place], [place] 606521 PCP - General Internal Medicine 06/15/23 [address] [facility] [address] [place] [address] Orthopedics 11/22/20 Israel Minor MD [address] [place] [address] Cardiology 02/27/22 Sanket Rob DO [address]8 [facility] [address] [place] [address] Neurology 09/08/22 Ruby Duff, JESSY [address] [place], [place] 453081 Specialty Sales Representative Supervisor Hematology/Oncology 04/03/23 Ileana Sosa RN Specialty Sales Representative Supervisor 05/19/23 Arabella Moreno, TOOL ROOM SUPERVISOR.TUMOR REGISTRAR [address] [place] [address] Soft Mud Molder Internal Medicine 10/17/24 Conference And Event Organiser Relationship Specialty Start Date End Date Ronaldo Pleitez MD [address] [place] [address] PCP - General Internal Medicine 06/15/23 Laron Arreola [address] [facility] [address] [place] [address] Orthopedics 11/22/20 Israel Minor MD [address] [place] [address] Cardiology 02/27/22 Sanket Rob DO 4048 [facility] 100 [place] [address] Neurology 09/08/22 Ruby Duff RN [address] [place], [place] 331391 Specialty Sales Representative Supervisor Hematology/Oncology 04/03/23 Ileana Sosa RN Specialty Sales Representative Supervisor 05/19/23 Arabella Moreno, TOOL ROOM SUPERVISOR.[facility] [address] [place], [place] [address] Soft Mud Molder Internal Medicine 10/17/24 Conference And Event Organiser Relationship Specialty Start Date End Date Ronaldo Pleitez MD [address] [place], [place] 251381 PCP - General Internal Medicine 06/15/23 Laron Arreola [address] [facility] 102 [place], [place] [address]14433 Orthopedics 11/22/20 Israel Minor MD [address] [place] [address] Cardiology 02/27/22 Sanket Rob DO 4048 [facility] [address] [place] [address] Neurology 09/08/22 Ruby Duff RN [address] [place] [address] Specialty Sales Representative Supervisor Hematology/Oncology 04/03/23 Ileana Sosa, RN Specialty Sales Representative Supervisor 05/19/23 Arabella Moreno, TOOL ROOM SUPERVISOR.TUMOR REGISTRAR [address] [place] [address] Soft Mud Molder Internal Medicine 10/17/24 Conference And Event Organiser Relationship Specialty Start Date End Date Ronaldo Pleitez MD [address] [place] [address] PCP - General Internal Medicine 06/15/23 Laron Arreola [address] [facility] [address] [place] [address] Orthopedics 11/22/20 sIrael Minor MD [address] [place] [address] Cardiology 02/27/22 Sanket Rob DO [address] [facility] [address] [place] [id number] Neurology 09/08/22 Ruby Duff, JESSY [address] [place] [address] Specialty Sales Representative Supervisor Hematology/Oncology 04/03/23 Ileana Sosa, JESSY Specialty Sales Representative Supervisor 05/19/23 Arabella Moreno, TOOL ROOM SUPERVISOR.TUMOR REGISTRAR [address] [place] [address] Soft Mud Molder Internal Medicine 10/17/24 Team Status: Active Member Role/Relationship Status Dates Dr. Ronaldo Pleitez MD Primary Care Provider Active Team Status: Inactive Member Role/Relationship Status Dates Dr. Ronaldo Pleitez MD Primary Care Provider Active Start: June 18, 2025 End: June 19, 2025 Dr. Bryanna Tijerina MD Emergency Provider Active S tart: June 18, 2025 End: June 19, 2025 Conference And Event Organiser Relationship Specialty Start Date End Date Ronaldo Pleitez MD [address] [place], [place] [id number] PCP - General Internal Medicine 06/15/23 Laron Arreola [address] [facility] [address] [place] [address] Orthopedics 11/22/20 Israel Minor MD [address] [place] [address] Cardiology 02/27/22 Sanket Rob DO [address] [facility] [address] [place] [address] Neurology 09/08/22 Ruby Duff, JESSY [address] [facility] [place], [place] [id number] Specialty Sales Representative Supervisor Hematology/Oncology 04/03/23 Ileana Sosa RN Specialty Sales Representative Supervisor 05/19/23 Arabella Moreno, TOOL ROOM SUPERVISOR.TUMOR REGISTRAR [address] [place], [place] [id number] Soft Mud Molder Internal Medicine 10/17/24 Team Status: Inactive Member Role/Relationship Status Dates Dr. Ronaldo Pleitez MD Primary Care Provider Active Start: June 18, 2025 End: June 19, 2025 Dr. Bryanna Tijerina MD Attending Provider Active S tart: June 18, 2025 End: June 19, 2025 Dr. Bryanna Tijerina MD Emergency Provider Active S tart: June 18, 2025 End: June 19, 2025 Team Status: Inactive Member Role/Relationship Status Dates Dr. Ronaldo Pleitez MD Primary Care Provider Active Start: June 19, 2025 End: June 19, 2025 Dr. Bryanna Tijerina MD Attending Provider Active S tart: June 19, 2025 End: June 19, 2025 Dr. Bryanna Tijerina MD Referring Provider Active S tart: June 19, 2025 End: June 19, 2025 Team Status: Active Member Role/Relationship Status Dates Dr. Ronaldo Pleitez MD Primary Care Provider Active Start: June 19, 2025 Dr. Ned Dinh MD Attending Provider Active S tart: June 19, 2025 Team Status: Active Member Role/Relationship Status Dates Dr. Ronaldo Pleitez MD Primary Care Provider Active Start: June 23, 2025 Dr. Jere Gorman MD Emergency Provider Active S tart: June 23, 2025 Team Status: Active Member Role/Relationship Status Dates Dr. Ronaldo Pleitez MD Primary Care Provider Active Start: June 23, 2025 Dr. Jere Gorman MD Emergency Provider Active S tart: June 23, 2025 Dr. Mary Prather MD Admit Provider Active Star t: June 23, 2025 Dr. Mary Prather MD Attending Provider Active Start: June 23, 2025 PRN Active and Recently Administ ered Medications [...] (DERMABOND) TOPICAL, X (OR/PROCEDURE) PRN, Starting on 12/05/22 at 1100, Until 12/06/22 at 0303, Intraprocedure 1100 (Given - Provid er: Manjeet Bulter MD) Goals (unrecognized section and content) Goals may be documented in a n alternate sectionGoals may be documented in an alternate sectionGoals may be documented in an alternate sectionGoals may be documented in an alternate section FOR RECORDS PERTAINING TO PATIENTS [...] BE BASED ON THE PRIMARY CLINICAL RECORDS. [employer] provides no warranty or guarantee of the accuracy or completeness of information in this document.
[2025-06-23 20:45] LABS: Differential Comment SCANNED
[2025-06-23 20:49] LABS: Anisocytosis 2+
[2025-06-23 20:50] LABS: Hypochromasia 1+; Polychromasia 1+
[2025-06-23 21:39] VITALS: BP 112/72; PULSE 66; RESP 18; TEMP 36.4; O2SAT 96
[2025-06-23] MEDS: MELATONIN 3 MG TABLET 10 MG PO (21:54)
[2025-06-24] MEDS: Ampicillin/Sulbactam 3 GM in 0.9% Normal Saline (100mL MB+) 100 ML IV ×5 (00:30→23:26)
[2025-06-24] MEDS: Senna/Docusate Sodium 1 Tablet 2 TABLET PO (01:04)
[2025-06-24 04:32] VITALS: BP 129/62; PULSE 55; RESP 18; TEMP 36.8; O2SAT 92
[2025-06-24 07:01] LABS: Hematocrit 28.6 % (40-54); Hemoglobin 9.3 g/dL (13.0-16.5); Immature Granulocytes Count 0.030 X10^3/uL (0.0-0.0); Mean Corp Hgb Conc 32.5 g/dL (32-36); Mean Corpuscular Volume 110.4 fL (80-94); Mean Platelet Vol. 11.1 fl (6.2-12.0); NRBC Flagged by Analyzer 0.9 % (0-5); POSITIVE MORPHOLOGY YES; Platelet Count 226 K/mm3 (150-450); RBC Distribution Width CV 26.6 % (11.6-14.6); Red Blood Count 2.59 M/mm3 (4.6-6.2); White Blood Count 6.9 K/mm3 (4.4-11.0)
[2025-06-24 07:06] LABS: Differential Indicated SCAN CRITERIA MET; RBC Distribution Width SD 108.7 fl (35.1-43.9)
[2025-06-24 07:45] LABS: Anisocytosis 2+; Differential Comment SCANNED; Hypochromasia 1+
[2025-06-24 07:46] LABS: Anion Gap 13 (5-15); BUN 37 mg/dL (4-19); BUN/Creat Ratio 27.3 RATIO (10-20); Calcium,Total 8.7 mg/dL (7.6-11.0); Carbon Dioxide 31.4 mmol/L (21.0-32.0); Chloride 94 mmol/L (98-108); Estimated Creatinine Clearance 36.30 ml/min (50-250); Glucose 119 mg/dL (70-99); Potassium 3.0 mmol/L (3.3-5.1)
--- NOTE | 2025-06-24 09:26 | CASEMGMT ---
Social Work SW met with pt and introduced self and role of SW. Pt states he lives at [facility] in the independent living. Previous [place] When SW inquired about this, pt states it is independent living and he plans to return there upon discharge. Pt agreeable to assessment for discharge planning. Care providers, pharmacy, and demographics verified. PCP: Chidi Mckenzie Pharmacy: [id number] [place] Insurance: An[employer] Medicare Prescription Benefit:? Yes Living Will/HPOA:? Pt states he completed many years ago, but does not have a copy of it. SW offered to assist in completing new documents, but pt declines. LNOK: dgts Liza Pulido and Annette Mcrae Living Arrangements: Pt states that he lives in the independent living at [facility]. SW inquired if it is the assisted living, but pt states independent living. Pt states he is independent with ADLS and that [facility] provides 1 meal a day and he is able to provide other meals for himself. Transportation:?Pt states that he still drives DME: ? Walker, rollator, cane, scooter, shower chair, grab bars in shower and raised toilet seat PLAN: Pt plans to return to his home at the [facility]. Denies any needs. Will watch therapy evals to confirm pt can return. Pt states his dgt will be able to provide transportation home. Updated clinicals sent to [facility] via [facility] requesting clarification of [place] vs [place] status. ARTEM Pace
--- NOTE | 2025-06-24 10:15 | PN.HOSP_ITS ---
Reason for Visit Chief Complaint: Increasing left lower extremity swelling Objective Data Objective Data Vital Signs: Vital Signs Temp Pulse Resp BP Pulse Ox O2 Del Method 98.2 F 55 L 18 129/62 H 92 Room Air 06/24/25 04:32 06/24/25 04:32 06/24/25 04:32 06/24/25 04:32 06/24/25 04:32 06/24/25 04:32 Oxygen Delivery Method Room Air Weight: 176 lb Body Mass Index (BMI) 28.4 Intake & Output: Intake and Output for Last 24 Hours 06/22/25 06/23/25 06/24/25 23:59 23:59 23:59 Intake Total 201 / 501 700 / 700 Balance 201 / 501 700 / 700 Lab / Micro Data 06/24/25 05:50 06/24/25 05:50 Labs: Laboratory Results - last 24 hr 06/23/25 14:23: WBC 6.8, RBC 2.65 L, Hgb 9.7 L, Hct 29.5 L, MCV 111.3 H, MCH 36.6 H, MCHC 32.9, RDW Std Deviation 109.9 H, RDW Coeff of Luis Alberto 26.7 H, Plt Count 230, MPV 10.6, Immature Gran % (Auto) 0.300, Neut % (Auto) 68.2, Lymph % (Auto) 14.5 L, [place] % (Auto) 15.5 H, Eos % (Auto) 0.9, Baso % (Auto) 0.6, Absolute Neuts (auto) 4.7, Absolute Lymphs (auto) 0.99, Nucleated RBC % 0.7, Differential Comment SCANNED, Platelet Estimate ADEQUATE, Polychromasia 1+, Hypochromasia 1+, Anisocytosis 2+, Sodium 138, Potassium 3.3, Chloride 92 L, Carbon Dioxide 32.5 H , Anion Gap 13, BUN 41 H, Creatinine 1.43 H, Estim Creat Clear Calc 36.06 L, Est GFR (MDRD) Non-Af 47 L, BUN/Creatinine Ratio 28.4 H, Glucose 160 H, Calcium 9.0 06/24/25 05:50: WBC 6.9, RBC 2.59 L, Hgb 9.3 L, Hct 28.6 L, MCV 110.4 H, MCH 35.9 H, MCHC 32.5, RDW Std Deviation 108.7 H, RDW Coeff of Luis Alberto 26.6 H, Plt Count 226, MPV 11.1, Immature Gran % (Auto) 0.400, Neut % (Auto) 69.2, Lymph % (Auto) 12.5 L, [place] % (Auto) 15.6 H, Eos % (Auto) 1.7, Baso % (Auto) 0.6, Absolute Neuts (auto) 4.7, Absolute Lymphs (auto) 0.86, Nucleated RBC % 0.9, Differential Comment SCANNED, Hypochromasia 1+, Anisocytosis 2+, Sodium 138, Potassium 3.0 L, Chloride 94 L, Carbon Dioxide 31.4, Anion Gap 13, BUN 37 H, Creatinine 1.37 H, E stim Creat Clear Calc 36.30 L, Est GFR (MDRD) Non-Af 49 L, BUN/Creatinine Ratio 27.3 H, Glucose 119 H, Calcium 8.7 Physical Exam Narrative Seen and examined Patient came to ER with increased left lower extremity swelling, redness pain started from ankle and progressed proximally for 1 week. No fever. Patient also had blister and dorsum of left foot which has ruptured spontaneously. He failed outpatient treatment for cellulitis Physical exam General: Alert, Oriented x3, Cooperative HEENT: Atraumatic, PERRLA, EOMI, Normocephalic. Oral: No Gingival or Mucosal Lesions/ Ulcerations Neck: Supple, No JVD, Negative Carotid Bruits Chest wall/Lungs: Air entry diminished in bilateral lung bases. No crepitation/rhonchi Cardiovascular: Sinus irregular rhythm, PVCs systolic murmur Abdomen: Bowel Sounds Present, Soft, Non Tender, Non-Distended : No dysuria. No renal angle tenderness. No suprapubic tenderness. Extremities: No edema, Capillary Refill Less than 3 Seconds Skin: Ruptured blister on dorsum of left foot. No obvious ulcer Musculoskeletal: Redness, tenderness erythema and swelling of left leg below knee level. Mild swelling and redness on right lower leg but mild in compared to left leg. No Tenderness to Palpation of Joints or Extremities Neurological: Cranial nerves II-XII grossly intact, DTR 2+/4. No acute focal neurological deficit. Psych/Mental Status: Flat affect Seen and examined. General: Alert, no apparent distress HEENT: Atraumatic, normocephalic Eyes: Anicteric, normal conjunctiva, extraocular movements grossly intact Neck: Supple Respiratory: No overt wheezes or rhonchi, normal respiratory effort Cardiovascular: Regular rate GI: Soft, nontender, nondistended Extremities: Edema in bilateral lower extremities around 1+ Musculoskeletal: Moving all extremities Neuro: No overt focal neurological deficits Skin: Erythema primarily of left lower extremity, some on foot and more so ankle up towards knee with some serous drainage, no pain reported on palpation or fluctuance Psych: Cooperative Assessment & Plan Assessment/Plan (1) Cellulitis of left leg: PLAN: Plan Patient was admitted with left lower extremity swelling, pain, induration which has failed outpatient treatment therefore admitted for IV antibiotic. Superficial blister on left dorsum of foot has ruptured. # Left lower extremity cellulitis - Failed outpatient management with oral antibiotics. No leukocytosis. - Will treat with IV Unasyn, no evidence of any purulence and patient does not have known history of diabetes so feel that this would be sufficient coverage at this time - Elevate extremity, Rodríguez wrap bandage Patient had venous duplex on 06/19 as an outpatient which did not show superficial or DVT in the left lower extremity. It shows nonvascular anechoic left popliteal fossa cyst 6.01 x 1.41 stable popliteal cyst. #Hx of CAD -w/ previous CABG -Continue home medications # CKD stage III a -BMP with a BUN of 41 and a creatinine of 1.43, only other recent labs were 5 days ago with a creatinine of 1.37 so it is possible that this is patient's baseline but labs prior to that were back in 2022 and a baseline closer to 1 -Avoid nephrotoxic agents -Repeat labs shows BUN/creatinine 37/1.37, slight decrease from admitting creatinine. Does not meet criteria for DANE. # History of CVA - Continue home medications - Heart healthy diet #Paroxysmal Atrial Fibrillation - Continue Xarelto #Hypothyroidism -Continue Synthroid #DVT ppx: Patient already on full dose anticoagulation with Xarelto 06/23/25 14:23: WBC 6.8, RBC 2.65 L, Hgb 9.7 L, Hct 29.5 L, MCV 111.3 H, MCH 36.6 H, MCHC 32.9, RDW Std Deviation 109.9 H, RDW Coeff of Luis Alberto 26.7 H, Plt Count 230, MPV 10.6, Immature Gran % (Auto) 0.300, Neut % (Auto) 68.2, Lymph % (Auto) 14.5 L, [place] % (Auto) 15.5 H, Eos % (Auto) 0.9, Baso % (Auto) 0.6, Absolute Neuts (auto) 4.7, Absolute Lymphs (auto) 0.99, Nucleated RBC % 0.7, Differential Comment SCANNED, Platelet Estimate ADEQUATE, Polychromasia 1+, Hypochromasia 1+, Anisocytosis 2+, Sodium 138, Potassium 3.3, Chloride 92 L, Carbon Dioxide 32.5 H, Anion Gap 13, B UN 41 H, Creatinine 1.43 H, Estim Creat Clear Calc 36.06 L, Est GFR (MDRD) Non- Af 47 L, BUN/Creatinine Ratio 28.4 H, Glucose 160 H, Calcium 9.0 06/24/25 05:50: WBC 6.9, RBC 2.59 L, Hgb 9.3 L, Hct 28.6 L, MCV 110.4 H, MCH 35.9 H, MCHC 32.5, RDW Std Deviation 108.7 H, RDW Coeff of Luis Alberto 26.6 H, Plt Count 226, MPV 11.1, Immature Gran % (Auto) 0.400, Neut % (Auto) 69.2, Lymph % (Auto) 12.5 L, [place] % (Auto) 15.6 H, Eos % (Auto) 1.7, Baso % (Auto) 0.6, Absolute Neuts (auto) 4.7, Absolute Lymphs (auto) 0.86, Nucleated RBC % 0.9, Differential Comment SCANNED, Hypochromasia 1+, Anisocytosis 2+, Sodium 138, Potassium 3.0 L, Chloride 94 L, Carbon Dioxide 31.4, Anion Gap 13, BUN 37 H, Creatinine 1.37 H, Estim Creat Clear Calc 36.30 L, Est GFR (MDRD) Non- Af 49 L, BUN/Creatinine Ratio 27.3 H, Glucose 119 H, Calcium 8.7 Charges/Coding Visit Charges Inpatient E&M: 79301 Subs Hosp L2
[2025-06-24 10:40] VITALS: BP 124/64; PULSE 62; RESP 14; TEMP 37.1; O2SAT 97
[2025-06-24] MEDS: Potassium Chloride Oral Tablet 20 MEQ 40 MEQ PO ×2 (10:56→18:07)
[2025-06-24] MEDS: Cholecalciferol (VIT D3) 25 MCG TABLET (1,000 UNITS) PO (10:57)
[2025-06-24] MEDS: Polyethylene Glycol 3350 17 GM PACKET PO (13:12)
[2025-06-24 14:35] VITALS: BP 111/79; PULSE 60; RESP 18; TEMP 36.4; O2SAT 98
[2025-06-24] MEDS: 0.9% Normal Saline (250mL Bag) 250 ML 15 ML IV (14:58)
--- NOTE | 2025-06-24 15:19 | CASEMGMT ---
Social Work SW received message from [facility] that pt is in the independent living. SW met with pt and dgt and reviewed therapy notes. Pt feels he can return to independent living. Dgt requesting script for outpt PT that pt could obtain at [facility]. Script obtained and sent to [facility] via [employer]. Plan: return to independent living, when medically ready with outpt PT. ARTEM Pace
[2025-06-24] MEDS: 0.9% Saline Lock 10 ML Syringe IV (18:07)
[2025-06-24 18:19] VITALS: BP 142/49; PULSE 58; RESP 18; TEMP 36.6; O2SAT 92
[2025-06-24 23:00] VITALS: PULSE 58; RESP 16; O2SAT 94
[2025-06-25] VITALS (7 sets, daily range): BP systolic 116–132; BP diastolic 43–67; PULSE 57–92; RESP 15–18; TEMP 36.4–36.7; O2SAT 92–98
[2025-06-25] MEDS: Ampicillin/Sulbactam 3 GM in 0.9% Normal Saline (100mL MB+) 100 ML IV ×3 (05:12→17:33)
[2025-06-25] MEDS: Potassium Chloride Oral Tablet 20 MEQ 40 MEQ PO (08:43)
[2025-06-25] MEDS: Polyethylene Glycol 3350 17 GM PACKET PO (10:01)
[2025-06-25] MEDS: Senna/Docusate Sodium 1 Tablet 2 TABLET PO (10:02)
[2025-06-25] MEDS: Cholecalciferol (VIT D3) 25 MCG TABLET (1,000 UNITS) PO (10:03)
--- NOTE | 2025-06-25 11:17 | PN.HOSP_ITS ---
Reason for Visit Chief Complaint: Increasing left lower extremity swelling Objective Data Objective Data Vital Signs: Vital Signs Temp Pulse Resp BP Pulse Ox O2 Del Method O2 Flow Rate 98.1 F 92 18 127/56 H 92 Room Air 2 06/25/25 09:55 06/25/25 09:55 06/25/25 09:55 06/25/25 09:55 06/25/25 09:55 06/25/25 09:57 06/25/25 05:00 Oxygen Flow Rate (L/min) 2 Oxygen Delivery Method Room Air Weight: 176 lb Body Mass Index (BMI) 28.4 Intake & Output: Intake and Output for Last 24 Hours 06/23/25 06/24/25 06/25/25 23:59 23:59 23:59 Intake Total 201 / 501 1499 / 1499 800 / 800 Balance 201 / 501 1499 / 1499 800 / 800 Lab / Micro Data 06/24/25 05:50 06/24/25 05:50 Physical Exam Narrative Seen and examined Patient moved bowels yesterday x 2. Redness looks better. Physical exam General: Alert, Oriented x3, Cooperative HEENT: Atraumatic, PERRLA, EOMI, Normocephalic. Oral: No Gingival or Mucosal Lesions/ Ulcerations Neck: Supple, No JVD, Negative Carotid Bruits Chest wall/Lungs: Air entry diminished in bilateral lung bases. No crepitation/rhonchi Cardiovascular: Sinus irregular rhythm, PVCs systolic murmur Abdomen: Bowel Sounds Present, Soft, Non Tender, Non-Distended : No dysuria. No renal angle tenderness. No suprapubic tenderness. Extremities: No edema, Capillary Refill Less than 3 Seconds Skin: Ruptured blister on dorsum of left foot. No obvious ulcer Musculoskeletal: Redness, tenderness erythema and swelling of left leg below knee level improving. Mild swelling and redness on right lower leg but mild in compared to left leg. No Tenderness to Palpation of Joints or Extremities Neurological: Cranial nerves II-XII grossly intact, DTR 2+/4. No acute focal neurological deficit. Psych/Mental Status: Flat affect Assessment & Plan Assessment/Plan (1) Cellulitis of left leg: PLAN: Plan Patient was admitted with left lower extremity swelling, pain, induration which has failed outpatient treatment therefore admitted for IV antibiotic. Patient was admitted with ER with increased left lower extremity swelling, redness pain started from ankle and progressed proximally for 1 week. No fever. Patient also had blister and dorsum of left foot which has ruptured spontaneously. He failed outpatient treatment for cellulitis # Left lower extremity cellulitis - Failed outpatient management with oral antibiotics. No leukocytosis. - Will treat with IV Unasyn, no evidence of any purulence and patient does not have known history of diabetes so feel that this would be sufficient coverage at this time - Elevate extremity, Rodríguez wrap bandage Patient had venous duplex on 06/19 as an outpatient which did not show superficial or DVT in the left lower extremity. It shows nonvascular anechoic left popliteal fossa cyst 6.01 x 1.41 stable popliteal cyst. 06/25 continue antibiotic. Cellulitis is improving. Home health PT prescription signed. Anticipate discharge tomorrow #Hx of CAD -w/ previous CABG -Continue home medications # CKD stage III a -BMP with a BUN of 41 and a creatinine of 1.43, only other recent labs were 5 days ago with a creatinine of 1.37 so it is possible that this is patient's baseline but labs prior to that were back in 2022 and a baseline closer to 1 -Avoid nephrotoxic agents -Repeat labs shows BUN/creatinine 37/1.37, slight decrease from admitting creatinine. Does not meet criteria for DANE. # History of CVA - Continue home medications - Heart healthy diet #Paroxysmal Atrial Fibrillation - Continue Xarelto #Hypothyroidism -Continue Synthroid #DVT ppx: Patient already on full dose anticoagulation with Xarelto 06/23/25 14:23: WBC 6.8, RBC 2.65 L, Hgb 9.7 L, Hct 29.5 L, MCV 111.3 H, MCH 36.6 H, MCHC 32.9, RDW Std Deviation 109.9 H, RDW Coeff of Luis Alberto 26.7 H, Plt Count 230, MPV 10.6, Immature Gran % (Auto) 0.300, Neut % (Auto) 68.2, Lymph % (Auto) 14.5 L, [place] % (Auto) 15.5 H, Eos % (Auto) 0.9, Baso % (Auto) 0.6, Absolute Neuts (auto) 4.7, Absolute Lymphs (auto) 0.99, Nucleated RBC % 0.7, Differential Comment SCANNED, Platelet Estimate ADEQUATE, Polychromasia 1+, Hypochromasia 1+, Anisocytosis 2+, Sodium 138, Potassium 3.3, Chloride 92 L, Carbon Dioxide 32.5 H, Anion Gap 13, B UN 41 H, Creatinine 1.43 H, Estim Creat Clear Calc 36.06 L, Est GFR (MDRD) Non- Af 47 L, BUN/Creatinine Ratio 28.4 H, Glucose 160 H, Calcium 9.0 06/24/25 05:50: WBC 6.9, RBC 2.59 L, Hgb 9.3 L, Hct 28.6 L, MCV 110.4 H, MCH 35.9 H, MCHC 32.5, RDW Std Deviation 108.7 H, RDW Coeff of Luis Alberto 26.6 H, Plt Count 226, MPV 11.1, Immature Gran % (Auto) 0.400, Neut % (Auto) 69.2, Lymph % (Auto) 12.5 L, [place] % (Auto) 15.6 H, Eos % (Auto) 1.7, Baso % (Auto) 0.6, Absolute Neuts (auto) 4.7, Absolute Lymphs (auto) 0.86, Nucleated RBC % 0.9, Differential Comment SCANNED, Hypochromasia 1+, Anisocytosis 2+, Sodium 138, Potassium 3.0 L, Chloride 94 L, Carbon Dioxide 31.4, Anion Gap 13, BUN 37 H, Creatinine 1.37 H, Estim Creat Clear Calc 36.30 L, Est GFR (MDRD) Non- Af 49 L, BUN/Creatinine Ratio 27.3 H, Glucose 119 H, Calcium 8.7 Charges/Coding Visit Charges Inpatient E&M: 63785 Subs Hosp L2
[2025-06-25] MEDS: 0.9% Saline Lock 10 ML Syringe IV (11:33)
[2025-06-25] MEDS: MELATONIN 3 MG TABLET 10 MG PO (23:00)
[2025-06-26 00:38] VITALS: O2SAT 85
[2025-06-26 04:00] VITALS: RESP 15
[2025-06-26 05:00] VITALS: BP 123/64; PULSE 57; RESP 16; TEMP 37.1; O2SAT 95
[2025-06-26 05:59] LABS: Anion Gap 12 (5-15); BUN 38 mg/dL (4-19); BUN/Creat Ratio 29.5 RATIO (10-20); Calcium,Total 8.7 mg/dL (7.6-11.0); Carbon Dioxide 32.3 mmol/L (21.0-32.0); Chloride 95 mmol/L (98-108); Estimated Creatinine Clearance 38.55 ml/min (50-250); Glucose 99 mg/dL (70-99); Potassium 3.2 mmol/L (3.3-5.1)
[2025-06-26] MEDS: Ampicillin/Sulbactam 3 GM in 0.9% Normal Saline (100mL MB+) 100 ML IV ×2 (06:31)
[2025-06-26] MEDS: Senna Tablet 2 TABLET PO (07:31)
[2025-06-26] MEDS: Potassium Chloride Oral Tablet 20 MEQ 40 MEQ PO (07:32)
[2025-06-26] MEDS: Cholecalciferol (VIT D3) 25 MCG TABLET (1,000 UNITS) PO (07:33)
[2025-06-26 07:38] VITALS: BP 121/52; PULSE 67; RESP 18; TEMP 36.6; O2SAT 98
--- NOTE | 2025-06-26 10:30 | CASEMGMT ---
Addendum entered by Kandace James 06/26/25 10:35: Social Work SW gave pt the script for outpt therapy, explained it was sent to [facility]. Pt asked who said he needed PT. SW explained it was this SW's understanding from the prior SW, he can follow up w/this and participate in outpt PT or not, it's up to him. Pt states understanding. NASIMA Wright Original Note: Social Work SW faxed script for outpt PT to [facility], sent a message in [facility] letting [facility] know he is returning to independent living today. NASIMA Wright
--- NOTE | 2025-06-26 10:33 | DCINST_ITS ---
Discharge Instructions DC O2, CPAP, BIPAP needs Home O2 Discharge instructions: No Dressing / Incision Discharge Activity: Return to Normal Activity Weight Bearing Status: Weight bearing as tolerated Dressing / Incision Call your doctor if you observe: Fever of 101 or Higher, Coldness, Increased Pain, Numbness or Tingling, Change in Color, Inability to urinate, Inability to have a bowel movement, Shortness of breath, Dizziness, Fainting spells, Swelling in the ankles, Chest pain, Prolonged hiccupping, Increased palpitations (irregular heartbeat) and Calf discomfort Follow Up Care When: IN 2 WEEKS Test Results: Test results from this visit will be discussed in further detail at your follow- up appointment, if applicable. Discharge Plan Admission Admit Date/Time: 06/23/25 16:21 Primary Reason for Your Visit: cellulitis, B/L, Left>Right Attending Provider: Marshal Rebolledo Primary Care Provider: Ronaldo Murillo Consulting Providers: Mary Prather Discharge Orders/Prescriptions Prescriptions: New sennosides-docusate sodium [Stimulant Laxative Plus] 8.6-50 mg Tablet 2 tab PO BID PRN PRN (Reason: Constipation) Qty: 0 0RF amoxicillin-pot clavulanate 875-125 mg tablet 1 tab PO BID 5 Days Qty: 10 0RF potassium chloride 20 mEq Tablet,Er Particles/Crystals 40 meq PO BIDCM 30 Days Qty: 120 0RF Continued cyanocobalamin (vitamin B-12) 1,000 mcg capsule 1,000 mcg PO DAILY cholecalciferol (vitamin D3) 25 mcg (1,000 unit) tablet 25 mcg PO DAILY multivitamin Tablet 1 tab PO DAILY Xarelto 20 mg tablet 20 mg PO QPM Rx Instructions: must administer with evening meal atorvastatin 20 mg tablet 20 mg PO QHS folic acid 1 mg Tablet 1 mg PO BREAKFAST 30 Days Qty: 30 2RF polyethylene glycol 3350 [Miralax] 17 gram/dose powder 17 g PO DAILY PRN (Reason: constipation) Qty: 238 0RF levothyroxine [Synthroid] 100 mcg tablet 100 mcg PO DAILY nitroglycerin 0.4 mg tablet, sublingual 0.4 mg sublingual Q5M Rx Instructions: do not exceed 3 doses per episode Changed furosemide 40 mg tablet 40 mg PO BID 30 Days Qty: 0 0RF Rx Instructions: TAKE 1 TABLET TWO TIMES A DAY. AM AND NOON Discontinued cephalexin 500 mg capsule 500 mg PO Q8H 5 Days Qty: 15 0RF Referrals / Follow Up: Ronaldo Murillo MD [Primary Care Provider] - Within 1 Week (Need BMP in 1 week for hypokalemia and adjust Kcl accordingly)
--- NOTE | 2025-06-26 10:41 | DS.PCM_ITS ---
Providers Date of Admission: 06/23/25 Date of Discharge: 06/26/25 Primary Care Physician: Dr. Ronaldo Murillo MD Reason For Visit: LEFT LOWER EXTREMITY CELLULITIS Diagnosis Discharge Diagnosis (1) Cellulitis of left leg: Status: Acute Code(s): L03.116 - Cellulitis of left lower limb Plan Patient was admitted with left lower extremity swelling, pain, induration which has failed outpatient treatment therefore admitted for IV antibiotic. Patient was admitted with ER with increased left lower extremity swelling, redness pain started from ankle and progressed proximally for 1 week. No fever. Patient also had blister and dorsum of left foot which has ruptured spontaneously. He failed outpatient treatment for cellulitis # Left lower extremity cellulitis - Failed outpatient management with oral antibiotics. No leukocytosis. - Will treat with IV Unasyn, no evidence of any purulence and patient does not have known history of diabetes so feel that this would be sufficient coverage at this time - Elevate extremity, Rodríguez wrap bandage Patient had venous duplex on 06/19 as an outpatient which did not show superficial or DVT in the left lower extremity. It shows nonvascular anechoic left popliteal fossa cyst 6.01 x 1.41 stable popliteal cyst. 06/25 continue antibiotic. Cellulitis is improving. Home health PT prescription signed. Anticipate discharge tomorrow 06/26: Discharged on 5 more days of Augmentin. Had 3.5 days of IV antibiotics #Hx of CAD -w/ previous CABG -Continue home medications # CKD stage III a -BMP with a BUN of 41 and a creatinine of 1.43, only other recent labs were 5 days ago with a creatinine of 1.37 so it is possible that this is patient's baseline but labs prior to that were back in 2022 and a baseline closer to 1 -Avoid nephrotoxic agents -Repeat labs shows BUN/creatinine 37/1.37, slight decrease from admitting creatinine. Does not meet criteria for DANE. 06/26: Kidney function is on baseline. BUN/furosemide 40 mg p.o. twice daily and metolazone. History. Potassium supplement at home but not. Discharged on KCl 40 mEq twice daily and advised to follow with PCP, BMP in 1 week # History of CVA - Continue home medications - Heart healthy diet #Paroxysmal Atrial Fibrillation - Continue Xarelto #Hypothyroidism -Continue Synthroid #DVT ppx: Patient already on full dose anticoagulation with Xarelto Discharge medication reconciliation done. Discharge follow-up instructions completed. Discharge process discussed with the patient and all questions were answered to patient's satisfaction. Follow with PCP in 1 to 2 weeks Total time spent, exact 35 minutes on discharge meds reconciliation, examination, coordination of care with nurses and ancillary staff, review of imaging and blood test and discussion with the patient on follow-up instructions. 06/23/25 14:23: WBC 6.8, RBC 2.65 L, Hgb 9.7 L, Hct 29.5 L, MCV 111.3 H, MCH 36.6 H, MCHC 32.9, RDW Std Deviation 109.9 H, RDW Coeff of Luis Alberto 26.7 H, Plt Count 230, MPV 10.6, Immature Gran % (Auto) 0.300, Neut % (Auto) 68.2, Lymph % (Auto) 14.5 L, Edwards % (Auto) 15.5 H, Eos % (Auto) 0.9, Baso % (Auto) 0.6, Absolute Neuts (auto) 4.7, Absolute Lymphs (auto) 0.99, Nucleated RBC % 0.7, Differential Comment SCANNED, Platelet Estimate ADEQUATE, Polychromasia 1+, Hypochromasia 1+, Anisocytosis 2+, Sodium 138, Potassium 3.3, Chloride 92 L, Carbon Dioxide 32.5 H, Anion Gap 13, B UN 41 H, Creatinine 1.43 H, Estim Creat Clear Calc 36.06 L, Est GFR (MDRD) Non- Af 47 L, BUN/Creatinine Ratio 28.4 H, Glucose 160 H, Calcium 9.0 06/24/25 05:50: WBC 6.9, RBC 2.59 L, Hgb 9.3 L, Hct 28.6 L, MCV 110.4 H, MCH 35.9 H, MCHC 32.5, RDW Std Deviation 108.7 H, RDW Coeff of Luis Alberto 26.6 H, Plt Count 226, MPV 11.1, Immature Gran % (Auto) 0.400, Neut % (Auto) 69.2, Lymph % (Auto) 12.5 L, Edwards % (Auto) 15.6 H, Eos % (Auto) 1.7, Baso % (Auto) 0.6, Absolute Neuts (auto) 4.7, Absolute Lymphs (auto) 0.86, Nucleated RBC % 0.9, Differential Comment SCANNED, Hypochromasia 1+, Anisocytosis 2+, Sodium 138, Potassium 3.0 L, Chloride 94 L, Carbon Dioxide 31.4, Anion Gap 13, BUN 37 H, Creatinine 1.37 H, Estim Creat Clear Calc 36.30 L, Est GFR (MDRD) Non- Af 49 L, BUN/Creatinine Ratio 27.3 H, Glucose 119 H, Calcium 8.7 Medications at Discharge Home Medications cholecalciferol (vitamin D3) 25 mcg (1,000 unit) tablet 25 mcg PO DAILY 04/09/23 cyanocobalamin (vitamin B-12) 1,000 mcg capsule 1,000 mcg PO DAILY 04/09/23 multivitamin 1 tab PO DAILY 04/09/23 rivaroxaban 20 mg tablet (Xarelto) 20 mg PO QPM 04/09/23 atorvastatin 20 mg tablet 20 mg PO QHS 05/14/23 folic acid 1 mg tablet 1 mg PO BREAKFAST 30 days #30 tabs 05/18/23 polyethylene glycol 3350 17 gram/dose oral powder (Miralax) 17 g PO DAILY PRN constipation #238 grams 05/20/23 levothyroxine 100 mcg tablet (Synthroid) 100 mcg PO DAILY 06/18/25 nitroglycerin 0.4 mg sublingual tablet 0.4 mg sublingual Q5M 06/23/25 amoxicillin 875 mg-potassium clavulanate 125 mg tablet 1 tab PO BID 5 days #10 tabs 06/26/25 furosemide 40 mg tablet 40 mg PO BID 30 days #0 tabs 06/26/25 potassium chloride 20 mEq tablet,extended release(part/cryst) 40 meq (2 x 20 mEq) PO BIDCM 30 days #120 tabs 06/26/25 sennosides 8.6 mg-docusate sodium 50 mg tablet (Stimulant Laxative Plus) 2 tab PO BID PRN PRN Constipation #0 tabs 06/26/25 Physical Exam Narrative Seen and examined Patient is moving bowel. Redness and swelling of lower extremities looks better. Wants to go home. Physical exam General: Alert, Oriented x3, Cooperative HEENT: Atraumatic, PERRLA, EOMI, Normocephalic. Oral: No Gingival or Mucosal Lesions/ Ulcerations Neck: Supple, No JVD, Negative Carotid Bruits Chest wall/Lungs: Air entry diminished in bilateral lung bases. No crepitation/rhonchi Cardiovascular: Sinus irregular rhythm, PVCs systolic murmur Abdomen: Bowel Sounds Present, Soft, Non Tender, Non-Distended : No dysuria. No renal angle tenderness. No suprapubic tenderness. Extremities: No edema, Capillary Refill Less than 3 Seconds Skin: Ruptured blister on dorsum of left foot. No obvious ulcer Musculoskeletal: Redness, tenderness erythema and swelling of both lower legs have improved. No tenderness or drainage Neurological: Cranial nerves II-XII grossly intact, DTR 2+/4. No acute focal neurological deficit. Psych/Mental Status: Flat affect Weight / BMI Weight Weight: 176 lb Body Mass Index (BMI) 28.4 ABG / Lab / Microbiology Data 06/24/25 05:50 06/26/25 04:43 Laboratory: Laboratory Results - last 24 hr 06/26/25 04:43: Sodium 138, Potassium 3.2 L, Chloride 95 L, Carbon Dioxide 32.3 H, Anion Gap 12, BUN 38 H, Creatinine 1.29 H, Estim Creat Clear Calc 38.55 L, E st GFR (MDRD) Non-Af 53 L, BUN/Creatinine Ratio 29.5 H, Glucose 99, Calcium 8.7, Phosphorus 3.9, Magnesium 2.1 D/C Instructions Weight Bearing Status: Weight bearing as tolerated Call your doctor if you observe: Fever of 101 or Higher, Coldness, Increased Pain, Numbness or Tingling, Change in Color, Inability to urinate, Inability to have a bowel movement, Shortness of breath, Dizziness, Fainting spells, Swelling in the ankles, Chest pain, Prolonged hiccupping, Increased palpitations (irregular heartbeat) and Calf discomfort DC O2, CPAP, BIPAP Needs Home O2 Discharge instructions: No When: IN 2 WEEKS Meaningful Use Info Meaningful Use Meaningful Use Diagnoses (Choose all that apply): None applicable Discharge Plan Admission Admit Date/Time: 06/23/25 16:21 Primary Reason for Your Visit: cellulitis, B/L, Left>Right Attending Provider: Marshal Rebolledo Primary Care Provider: Ronaldo Murillo Consulting Providers: Mary Prather Discharge Orders/Prescriptions Prescriptions: New sennosides-docusate sodium [Stimulant Laxative Plus] 8.6-50 mg Tablet 2 tab PO BID PRN PRN (Reason: Constipation) Qty: 0 0RF amoxicillin-pot clavulanate 875-125 mg tablet 1 tab PO BID 5 Days Qty: 10 0RF potassium chloride 20 mEq Tablet,Er Particles/Crystals 40 meq PO BIDCM 30 Days Qty: 120 0RF Continued cyanocobalamin (vitamin B-12) 1,000 mcg capsule 1,000 mcg PO DAILY cholecalciferol (vitamin D3) 25 mcg (1,000 unit) tablet 25 mcg PO DAILY multivitamin Tablet 1 tab PO DAILY Xarelto 20 mg tablet 20 mg PO QPM Rx Instructions: must administer with evening meal atorvastatin 20 mg tablet 20 mg PO QHS folic acid 1 mg Tablet 1 mg PO BREAKFAST 30 Days Qty: 30 2RF polyethylene glycol 3350 [Miralax] 17 gram/dose powder 17 g PO DAILY PRN (Reason: constipation) Qty: 238 0RF levothyroxine [Synthroid] 100 mcg tablet 100 mcg PO DAILY nitroglycerin 0.4 mg tablet, sublingual 0.4 mg sublingual Q5M Rx Instructions: do not exceed 3 doses per episode Changed furosemide 40 mg tablet 40 mg PO BID 30 Days Qty: 0 0RF Rx Instructions: TAKE 1 TABLET TWO TIMES A DAY. AM AND NOON Discontinued cephalexin 500 mg capsule 500 mg PO Q8H 5 Days Qty: 15 0RF Referrals / Follow Up: Ronaldo Murillo MD [Primary Care Provider] - Within 1 Week (Need BMP in 1 week for hypokalemia and adjust Kcl accordingly) Disposition Disposition (needs filled in before D/C Order can be placed): Home Health Service Charges/Coding Visit Charges Inpatient E&M: 36815 Disch Hosp >30min
[2025-06-26 10:45] LABS: Magnesium 2.1 mg/dL (1.5-2.2)
== END 2025-06-26 11:34 | disposition home or self-care (01) | DRG 603 ==
LOC: ED 16:24 → MS3 17:15
PROVIDERS: Admitting Provider Internal Medicine; Emergency Provider Emergency Medicine; PCP Internal Medicine; Visit Provider Internal Medicine
DX: L03.116 Cellulitis of left lower limb (principal); E03.9 Hypothyroidism, unspecified; N18.31 Chronic kidney disease, stage 3a; I12.9 Hypertensive chronic kidney disease with stage 1 through stage 4 chronic kidney disease, or unspecified chronic kidney disease; I48.0 Paroxysmal atrial fibrillation; E78.5 Hyperlipidemia, unspecified; I25.10 Atherosclerotic heart disease of native coronary artery without angina pectoris; M71.20 Synovial cyst of popliteal space [Baker], unspecified knee; Z79.890 Hormone replacement therapy; Z79.01 Long term (current) use of anticoagulants; Z86.73 Personal history of transient ischemic attack (TIA), and cerebral infarction without residual deficits; Z87.891 Personal history of nicotine dependence; Z95.0 Presence of cardiac pacemaker; Z95.1 Presence of aortocoronary bypass graft
CPT/HCPCS: 36415; 80048; 83735; 84100; 85025; 94668; 97116; 97161; 97165; 97530; 99284; A4216; J0295

== ENCOUNTER 2025-07-28 18:35 | Inpatient (IN) | payer MEDICARE, SELFPAY ==
[2025-07-28] VITALS (10 sets, daily range): BP systolic 107–120; BP diastolic 60–95; PULSE 81–91; RESP 18–21; TEMP 36.9; O2SAT 89–100
--- NOTE | 2025-07-28 20:01 | EKG12_ITS ---
Test Reason : Blood Pressure : */* mmHG Vent. Rate : 88 BPM Atrial Rate : * BPM P-R Int : * ms QRS Dur : 148 ms QT Int : 416 ms P-R-T Axes : * 233 27 degrees QTcB Int : 503 ms Atrial fibrillation Right bundle branch block Inferior infarct , age undetermined Anterolateral infarct , age undetermined Abnormal ECG Confirmed by XUAN CAMP, NHAN ([id number]), film editor MARLENI CARVAJAL ([id number]) on 07/31/2025 8:11:30 AM Referred By: ER Confirmed By: NHAN GOVEA MD
--- OUTSIDE RECORDS SUMMARY | 2025-07-28 20:05 | XMS RPT_ITS | CCD ---
Author Organization [facility] Care Team Providers Care Brand Mgr Name Role Phone Laron Arreola MD Unavailable Tirmonia DO, Israel Hamzah Primary Care Provide r Laron Arreola Unavailable Israel Minor MD Unavailable Tirmonia DO, Israel Hamzah Primary Care Provide r Laron Arreola Unavailable Israel Minor MD Unavailable Tere Wang RN Unavailable [phone] Laron Arreola Unavailable Tere Wang RN Unavailable [phone] BALJINDER TREVIZO Attending Unavailable BALJINDER TREVIZO Admitting Unavailable TIRMONIA, ISRAEL HAMZAH Primary Care Unavail able Eveline Dean RN Unavailable Sindel DO, Randa Unavailable Sanket Rob DO Unavailable Tia [facility], Ten Unavailable Tirmonia DO, Israel Jarbidge Primary Care Provide r Laron Arreola Unavailable Israel Minor MD Unavailable Eveline Dean RN Unavailable Sindel DO, Randa Unavailable Sanket Rob DO Unavailable Ruby Duff RN Unavailable Ginna Em RN Unavailable [phone] [facility] Unavail able SINDEL, RANDA Referring Unavailable TIRMONIA, [facility] Unavail able MARLENE DOMÍNGUEZER Attending Unavailable TIRMONIA, [facility] Unavail able PRETKarey JEANETH Referring Unavailable MARÍA CHANG Admitting Unavaila LARON Garcia Consulting Unavailable ARYANLURI, ALLIE Attending Unavailable TIRMONIA, [facility] Unavail able SINDEL, RANDA Referring Unavailable TIRMONIA, [facility] Unavail able VALLURI, ALLIE Referring Unavailable TIRMONIA, [facility] Unavail able STEPHEN DOTY Referring Unavailable ROSA GONZALEZ Attending Unavailable TIRMONIA, [facility] Unavail able LARON FORTUNE Referring Unavailable TIRMONIA, [facility] Unavail able SINDEL, RANDA Referring Unavailable TIRMONIA, [facility] Unavail able SINDEL, RANDA Referring Unavailable TIRMONIA, [facility] Unavail able SINDEL, RANDA Referring Unavailable TIRMONIA, [facility] Unavail able LAURI COOK Attending Unavailable SINDEL, RANDA Referring Unavailable SINDEL, RANDA Referring Unavailable TIRMONIA, [facility] Unavail able SINDEL, RANDA Referring Unavailable TIRMONIA, [facility] Unavail able TIRMONIA, [facility] Unavail able SKYE MAS Referring Unavailable TIRMONIA, [facility] Unavail able SINDEL, RANDA Referring Unavailable TIRMONIA, [facility] Unavail able SINDEL, RANDA Referring Unavailable TIRMONIA, [facility] Unavail able SINDEL, RADNA Referring Unavailable CARRIE, MANJEET Admitting Unavailable LAUREN BUTLERLL Attending Unavailable TIRMONIA, [facility] Unavail able TIRMONIA, [facility] Care Unavail able JESUS MANUEL WHITE MD Attending Unavailable JESUS MANUEL WHITE MD Admitting Unavailable TIRMONIA, [facility] Unavail able SINDEL, RANDA Referring Unavailable TIRMONIA, [facility] Unavail able SINDEL, RANDA Referring Unavailable TIRMONIA, [facility] Unavail able TIRMONIA, [facility] Unavail able SINDEL, RANDA Referring Unavailable TIRMONIA, [facility] Unavail able SINDEL, RANDA Referring Unavailable TIRMONIA, [facility] Unavail able SINDEL, RANDA Referring Unavailable TIRMONIA, [facility] Unavail able SINDEL, RANDA Attending Unavailable TIRMONIA, [facility] Unavail able SINDEL, RANDA Referring Unavailable TIRMONIA, [facility] Unavail able SINDEL, RANDA Referring Unavailable TIRMONIA, [facility] Unavail able SINDEL, RANDA Referring Unavailable TIRMONIA, [facility] Unavail able SINDEL, RANDA Referring Unavailable TIRMONIA, [facility] Unavail able SINDEL, RANDA Attending Unavailable TIRMONIA, [facility] Unavail able SINDEL, RANDA Referring Unavailable TIRMONIA, [facility] Unavail able SINDEL, RANDA Attending Unavailable TIRMONIA, [facility] Unavail able SINDEL, RANDA Referring Unavailable SINDEL, RANDA Attending Unavailable TIRMONIA, [facility] Unavail able SINDEL, RANDA Referring Unavailable TIRMONIA, [facility] Unavail able SINDEL, RANDA Referring Unavailable TIRMONIA, [facility] Unavail able ÁNGEL, TARA A Attending Unavailable ÁNGEL, TARA A Referring Unavailable TIRMONIA, [facility] Unavail able SINDEL, RANDA Attending Unavailable TIRMONIA, [facility] Unavail able SINDEL, RANDA Referring Unavailable TIRMONIA, [facility] Unavail able SINDEL, RANDA Referring Unavailable TIRMONIA, [facility] Unavail able SINDEL, RANDA Referring Unavailable TIRMONIA, [facility] Unavail able SINDEL, RANDA Referring Unavailable TIRMONIA, [facility] Unavail able SINDEL, RANDA Referring Unavailable TIRMONIA, [facility] Unavail able SINDEL, RANDA Referring Unavailable TIRMONIA, [facility] Unavail able SINDEL, RANDA Referring Unavailable TIRMONIA, [facility] Unavail able SINDEL, RANDA Referring Unavailable TIRMONIA, [facility] Unavail able SINDEL, RANDA Referring Unavailable TIRMONIA, [facility] Unavail able SINDEL, RANDA Referring Unavailable SINDEL, RANDA Attending Unavailable TIRMONIA, [facility] Unavail able SKYE MAS Attending Unavailable Dr. Ned Dinh Attending Provider Dr. Homer Khan Attending Provider [phone] Dr. Pedro Diaz Emergency Provider [phone] Hamzah Pruitt Primary Care Provider Dr. Mary Prather Admit Provider Dr. Mary Prather Attending Provider Dr. Mary Prather Other Provider Dr. Cristobal Villafuerte Attending Provider Dr. Marshal Rebolledo Attending Provider Dr. Marshal Rebolledo Other Provider Dr. Homer Marsh Other Provider Laron Arreola Unavailable Sheila RN, Ileana Unavailable Unavailable Sorin CASTAÑEDARanda Unavailable Israel Pruitt DO Primary Care Provide r Omega RN, Ruby Unavailable Manav JIMÉNEZ, Ginna Noel Unavailable Sheila RN, Ileana Unavailable Unavailable Ronaldo Pleitez MD Primary Care Provider Dr. Pedro Diaz Referring Provider Dr. Cristobal Villafuerte Referring Provider Ronaldo Pleitez MD Primary Care Provider Tiffanie CAKE PRESS OPERATOR HELPER.PHOTO MASK PATTERN GENERATOR, Arabella M Unavailable Sanket Rob DO Unavailable Sanket Rob DO Unavailable Dr. Ronaldo Pleitez MD Primary Care Provider Lilliana CAMP, Dr. Gould Emergency Provider Unavailab che Tijerina MD, Dr. Gould Attending Provider Unavailab Raul CAMP, Dr. Gould Referring Provider Unavailab che Dinh MD, Dr. Marino Attending Provider [phone] Sherif CAMP, Dr. Oquendo Emergency Provider Sherif CAMP, Dr. Oquendo Emergency Provider Crescencio CAMP, Dr. Hernandez Admit Provider [phone] Crescencio CAMP, Dr. Hernandez Attending Provider Crescencio CAMP, Dr. Hernandez Other Provider [phone] Amaury CAMP, Dr. Araya Attending Provider Amaury CAMP, Dr. Araya Other Provider Mio CAKE PRESS OPERATOR HELPER.PHOTO MASK PATTERN GENERATOR, Iram Carlson Unavailable Masci DO, Baljinder A Unavailable MASCI, BALJINDER A Referring Unavailable PLEITEZ, [...] KISHAN Primary Care Unavailable MASCI, BALJINDER A Attending Unavailable MASCI, BALJINDER A Referring Unavailable PLEITEZ, KISHAN Primary Care Unavailable PLEITEZ, KISHAN Attending Unavailable MASCI, BALJINDER A Referring Unavailable PLEITEZ, KISHAN Primary Care Unavailable MASCI, BALJINDER A Referring Unavailable PLEITEZ, KISHAN Primary Care Unavailable MASCI, BALJINDER A Referring Unavailable PLEITEZ, KISHAN Primary Care Unavailable PLEITEZ, KISHAN Attending Unavailable SELF Referring Unavailable PLEITEZ, KISHAN Primary Care Unavailable PELITEZ, KISHAN Primary Care Unavailable MASCI, BALJINDER A Referring Unavailable PLEITEZ, KISHAN Primary Care Unavailable TIFFANIE, NAZ M Attending Unavailable PLEITEZ, KISHAN Primary Care Unavailable MASCI, BALJINDER A Referring Unavailable PLEITEZ, KISHAN Primary Care Unavailable MASCI, BALJINDER A Referring Unavailable PLEITEZ, KISHAN Primary Care Unavailable MASCI, BALJINDER A Attending Unavailable MASCI, BALJINDER A Referring Unavailable PLEITEZ, [facility] Primary Care Unavailable MASCI, BALJINDER A Referring Unavailable PLEITEZ, [facility] Primary Care Unavailable MASCI, BALJINDER A Referring Unavailable PLEITEZ, [facility] Primary Care Unavailable MASCI, BALJINDER A Referring Unavailable PLEITEZ, [facility] Primary Care Unavailable MASCI, BALJINDER A Referring Unavailable PLEITEZ, [facility] Primary Care Unavailable MASCI, BALJINDER A Referring Unavailable PLEITEZ, [facility] Primary Care Unavailable MASCI, BALJINDER A Referring Unavailable PELITEZ, [facility] Primary Care Unavailable MASCI, BALJINDER A Referring Unavailable PLEITEZ, [facility] Primary Care Unavailable PLEITEZ, [facility] Primary Care Unavailable MASCI, BALJINDER A Referring Unavailable MASCI, BALJINDER A Attending Unavailable MASCI, BALJINDER A Referring Unavailable PLEITEZ, [facility] Primary Care Unavailable MASCI, BALJINDER A Referring Unavailable PLEITEZ, [facility] Primary Care Unavailable MASCI, BALJINDER A Referring Unavailable PLEITEZ, [facility] Primary Care Unavailable PLEITEZ, [facility] Referring Unavailable PLEITEZ, [facility] Primary Care Unavailable MASCI, BALJINDER A Referring Unavailable PLEITEZ, [facility] Primary Care Unavailable MASCI, BALJINDER A Referring Unavailable PLEITEZ, [facility] Primary Care Unavailable DAVID CERVANTES Attending Unavailable MASCI, BALJINDER A Referring Unavailable PLEITEZ, [facility] Primary Care Unavailable MASCI, BALJINDER A Referring Unavailable PLEITEZ, [facility] Primary Care Unavailable TIFFANIE, NAZ M Attending Unavailable PLEITEZ, [facility] Primary Care Unavailable MASCI, BALJINDER A Referring Unavailable PLEITEZ, [facility] Primary Care Unavailable LAURI COOK Attending Unavailable MASCI, BALJINDER A Referring Unavailable PLEITEZ, [facility] Primary Care Unavailable MASCI, BALJINDER A Referring Unavailable PLEITEZ, [facility] Primary Care Unavailable MASCI, BALJINDER A Referring Unavailable PLEITEZ, [facility] Primary Care Unavailable MASCI, BALJINDER A Referring Unavailable PLEITEZ, [facility] Primary Care Unavailable MASCI, BALJINDER A Referring Unavailable PLEITEZ, [facility] Primary Care Unavailable TIFFANIE, NAZ M Attending Unavailable PLEITEZ, [facility] Primary Care Unavailable MASCI, BALJINDER A Referring Unavailable PLEITEZ, [facility] Primary Care Unavailable MASCI, BALJINDER A Referring Unavailable PLEITEZ, [facility] Primary Care Unavailable MASCI, BALJINDER A [...] Referring Unavailable PLEITEZ, KISHAN Primary Care Unavailable ARABELLA MORENO Attending Unavailable PLEITEZ, KISHAN Primary Care Unavailable IRAM JOHNSON Attending Unavailable PLEITEZ, KISHAN Primary Care Unavailable PLEITEZ, KISHAN Primary Care Unavailable PLEITEZ, KISHAN Primary Care Unavailable IRAM JOHNSON Attending Unavailable PLEITEZ, KISHAN Primary Care Unavailable PLEITEZ, KISHAN Primary Care Unavailable PLEITEZ, KISHAN Primary Care Unavailable ARMIDA PARKER Admitting UnavailSERGIO Monahan Consulting Unavailable CARLEY KEYES Attending Unavailable ARMIDA PARKER Referring Unavailabl e PLEITEZ, KISHAN Primary Care Unavailable Mary Prather Admitting Unavailable Mary Prather Consulting Unavailable Pleitez, Ronaldo Primary Care Unavailable Marshal Rebolledo Attending Unavailable Marshal Rebolledo Consulting Unavailable Mary Prather Attending Unavailable Bryanna Tijerina Referring Unavailable Ned Dinh Attending Unavailable Pleitez, Ronaldo Primary Care Unavailable Star Meehan Attending Unavailabl e Pleitez, Ronaldo Primary Care Unavailable Bryanna Tijerina Referring Unavailable Bryanna Tijerina Attending Unavailable Pleitez, Ronaldo Primary Care Unavailable Care Physician, No Primary Primary Care Unava ilable Iram Johnson Referring Unavailable Iram Johnson Attending Unavailable Bryanna Tijerina Attending Unavailable Pleitez, Ronaldo Primary Care Unavailable Mary Prather Consulting Unavailable Mary Prather Admitting Unavailable Pleitez, Ronaldo Primary Care Unavailable Marshal Rebolledo Attending Unavailable Iram Johnson Consulting Unavailable Cristobal Villafuerte Attending Unavailabl e Care Physician, No Primary Primary Care Unava ilable Iram Johnson Referring Unavailable Allergies Allergy Classification Reported Allergen(s) Allergy Type Date of Onset Reaction(s) Facility HMG-CoA Reductase Inhibitors (statins) (1 source) Simvastatin Drug Allergy 10-09-201 2 Other: See Comments [facility] (20 sources) Simvastatin; Translations: [SIMVASTATIN] Drug Allergy 2 Other: See Comments [facility] Work Phone: Medications Current Medications Medication Drug Class(es) Dates Sig (Normalized) Sig (Original) cefdinir 300 mg oral capsule (4 sources) Cephalosporin Antibacterial Start: 07-09-2022 End: 07-12-2022 take 1 capsule by mouth twice daily cefdinir (OMNICEF) 300 mg capsule Take 1 capsule by mouth twice daily for 5 doses. 5 capsule 0 07/09/2022 07/12/2022 Active Comment on above: Take 1 capsule by mo uth twice daily for 5 doses. cephalexin 500 mg oral tablet (8 sources) Cephalosporin Antibacterial Start: 06-21-2025 End: 06-26-2025 take 1 tablet by mouth four times daily Cephalexin 500 mg tab Indications: Cellulitis of left leg Take 1 tablet by mouth four times daily for 5 days. 20 tablet 06/21/2025 06/26/2025 Active Start: 06-19-2025 End: 06-26-2025 take 1 capsule by mouth every eight hours Cephalexin 500 mg capsule Discontinued 500 mg PO Q8H 15 5 0 June 19, 2025 12:00am June 26, 2025 10:34am cholecalciferol 0.025 mg oral tablet (20 sources) Vitamin D Start: 04-09-2023 take 1 tablet by mouth once daily Cholecalciferol (Vitamin D3) 25 mcg (1,000 unit) tablet Active 25 ug PO DAILY April 09, 2023 12:00am Start: 08-29-2020 End: 09-30-2023 take 1 tablet by mouth once daily cholecalciferol (VITAMIN D3) 1,000 unit tab tablet Take 1,000 Units by mouth once daily. 08/29/2020 Suspended Start: 08-29-2020 VITAMIN D3 10 MCG (400 UNIT) TABS 1 tablet once daily CHOLECALCIFEROL [id number] Patricia Paul take 1 capsule by mo uth once daily cholecalciferol, vitamin D3, 10 mcg (400 unit) cap Take 1,000 Units by mouth once daily. 0 Active take 1 capsule by mo uth once daily cholecalciferol, vitamin D3, 10 mcg (400 unit) cap Take 400 Units by mouth once daily. 0 Active Comment on above: Take 400 Units by [facility] once daily. Take 1,000 Units by mouth once daily. docusate sodium 50 mg / sennosides, alf 8.6 mg oral tablet (9 sources) Start: 06-26-2025 Sennosides-Docusate Sodium (Stimulant Laxative Plus) 8.6-50 mg Tablet Active 2 {tbl} PO TWICE DAILY NEEDED as needed for Constipation 0 0 June 26, 2025 12:00am Start: 05-18-2023 End: 06-23-2025 Sennosides-Docusate Sodium ( Stool Softener-Stimulant Laxat) 8.6-50 mg Tablet Discontinued 2 {tbl} PO TWICE A DAY as needed for constipation 120 30 0 May 18, 2023 12:00am June 23, 2025 3:40pm doxycycline monohydrate 100 mg oral capsule (2 sources) Tetracycline-class Drug Start: 05-30-2025 End: 06-06-2025 take 1 capsule by mouth twice daily doxycycline monohydrate (MONODOX) 100 mg capsule Take 1 capsule by mouth two times a day for 7 days. 14 capsule 05/30/2025 06/06/2025 Active furosemide 40 mg oral tablet (20 sources) Loop Diuretic Start: 06-18-2025 take 1 tablet by mouth once daily Furosemide 40 mg tablet Active 40 mg PO DAILY June 18, 2025 12:00am Start: 06-16-2025 End: 06-26-2025 take 1 tablet by mouth twice daily in the morning furosemide (LASIX) 40 mg tablet Indications: Lymphedema of both lower extremities , Chronic heart failure with preserved ejection fraction (HCC) Take 1 tablet by mouth two times a day. AM and noon. 06/16/2025 Suspended Start: 01-22-2024 End: 06-21-2025 take 0.5 tablet [...] two times a day. AM and noon. Multivitamin preparation (5 sources) Start: 04-09-20 take 1 tablet by mouth once daily Multivitamin Active 1 TABLET PO DAILY April 09, 2023 12:00am Multivitamin tablet (4 sources) Start: 04-09-20 Multivitamin tablet Active 1 {tbl} PO DAILY April 09, 2023 12:00am nitroglycerin 0.4 mg sublingual tablet (20 sources) Nitrate Vasodilator Start: 06-23-20 Nitroglycerin 0.4 mg tablet, sublingual Active 0.4 mg SL Q5M June 23, 2025 12:00am do not exceed 3 doses per episode nitroglycerin servin blingual (NITROQUICK) 0.4 mg SL tablet nitroglycerin 0.4 mg sublingual tablet Suspended End: 08-22-2022 nitroglycerin sublingual (NI TROQUICK) 0.4 mg SL tablet Dissolve 0.4 mg under the tongue every 5 minutes as needed. Per hospital discharge 08/01/2021 0 08/22/2022 Discontinued (Erroneous entry) Comment on above: Dissolve 0.4 mg unde r the tongue every 5 minutes as needed. Per hospital discharge 08/01/2021 nitroglycerin 0.4 mg sublingual tablet traZODone hydrochloride 50 mg oral tablet (7 [...] th daily at bedtime. New as of Lou 21 2022 vitamin b12 1 mg oral capsule (20 sources) Vitamin B12 Start: 04-09-20 23 take 1 capsule by mouth once daily Cyanocobalamin (Vitamin B-12) 1,000 mcg capsule Active 1000 ug PO DAILY April 09, 2023 12:00am Start: 08-29-2020 End: 08-22-2022 take 1 tablet by mouth once daily cyanocobalamin (VITAMIN B-12) 1,000 mcg tab Take 1,000 mcg by mouth once daily. 0 11/22/2020 08/22/2022 Discontinued (Erroneous entry) Comment on above: Take 1 tablet by vinny once daily. As per recommendation of the patients art coordinator within the [facility] in [place] Take 1,000 mcg by mo [facility] once daily. Completed/Discontinued Medications Medication Drug Class(es) [...] mouth. Take by mouth as nee ded. amoxicillin 875 mg / clavulanate 125 mg oral tablet (5 sources) Penicillin-class Antibacterial Start: 5 End: 5 take 1 tablet by mouth twice daily amoxicillin-clavulan ate potassium (AUGMENTIN) 875-125 mg per tablet Take 1 tablet by mouth two times a day. 06/26/2025 07/07/2025 Discontinued PEDIATRIC MULTIPLE VITAMINS (1 source) Vitamin A, Vitamin B12, Vitamin D, Vitamin C Start: 0 MULTI-DELYN LIQD daily as directed PEDIATRIC MULTIPLE VITAMINS [id number] Ephraim Morgan LPN aspirin 81 mg delayed release [...] mouth once daily. 90 tablet 3 12/23/2024 Suspended Start: 08-29-2020 ATORVASTATIN C ALCIUM 10 MG TABS 1 tablet daily ATORVASTATIN CALCIUM [id number] Ephraim Morgan LPN Comment on above: Take 1 tablet by vinny th once daily. Take 40 mg by mouth once daily. Take 0.5 tablets by mouth once daily. New lower dose as of Jul 24 2022 Take 20 mg by mouth once daily. 0.4 ml darbepoetin marilu 0.5 mg/ml prefilled syringe (13 sources) Erythropoiesis-s timulating Agent Start: End: inject 1 dose by subcutaneous injection once 200 mcg, SUBCUTANEOUS, ONCE, 1 dose, On Thu06/23/25 at 1130, Protect from light REFRIGERATE Start: 06-09-2025 End: 06-09-2025 inject 1 dose by subcutaneous injection once [...] mcg, SUBCUTANEOUS, ONCE, 1 dose, On Sofya 11/24/24 at 1330, Protect from light REFRIGERATE digoxin 0.125 mg oral tablet (20 sources) Cardiac Glycoside Start: 04-21-2023 End: 06-23-2025 take 1 tablet by mouth once daily Digoxin 125 mcg (0.125 mg) tablet Discontinued 0.125 mg PO DAILY May 14, 2023 12:00am June 23, 2025 3:40pm Comment on above: Take 1 tablet by vinny once daily. diphenhydrAMINE hydrochloride 25 mg / naproxen sodium 220 mg oral tablet (1 source) Histamine-1 Receptor Antagonist, Nonsteroidal Anti-inflammatory Drug Start: 08-29-2020 ALEVE PM 220-25 MG TABS 2 tablets once daily as directed NAPROXEN SOD-DIPHENHYDRAMI NE [id number] Patricia Paul ferrous fumarate 325 mg oral tablet (20 [...] FRIEND 10 MG LOZENGE (1 source) Start: 09-27-2020 FISHERMAN'S FRIEND 10 MG LOZENGE once daily as directed FISHERMAN'S FRIEND 10 MG LOZENGE Ephraim Morgan LPN folic acid 1 mg oral tablet (20 sources) Start: 01-22-2024 take 1 tablet by mouth once daily folic acid 1 mg tablet Take 1 tablet by mouth once daily. 90 tablet 3 01/22/2024 Suspended Start: 05-18-2023 End: 12-23-2023 take 1 tablet by mouth once daily folic acid 1 mg tablet Take 1 tablet by mouth once daily. 90 tablet 3 01/22/2024 Active Comment on above: Take 1 mg by mouth o nce daily. [facility] f[facility] acid 1 mg / omega-3 acid ethyl esters (alf) 500 mg / phytosterols 200 mg / pyridoxine hydrochloride 12.5 mg / vitamin b 12 0.5 mg oral capsule (1 source) Vitamin B12 Start: 09-27-20 ANIMI-3 1 MG CAPS 1 capsule daily [id number] 3-PHYTOSTER [id number] Ephraim Eddie TANN folic acid 1 mg / vitamin b12 0.5 mg oral tablet (1 source) Vitamin B12 End: 12-04-19 Vitamin [id number] Acid 0.5-1 mg tab Vitamin B12 0 [...] Comment on above: Take 1 capsule by [facility] three times daily for 90 days. levoFLOXacin 500 mg oral tablet (14 sources) Quinolone Antimicrobial Start: 05-18-20 End: 06-23-20 [...] on empty stomach 90 tablet 3 12/23/2024 Suspended Start: 03-26-2023 End: 06-23-2025 take 1 tablet [...] TABS 1 tablet once daily LEVOTHYROXINE SODIUM [id number] Patricia Paul Comment on above: TAKE 1 TABLET BY VINNY TH ONCE DAILY Take 1 tablet by vinny th once daily. Take 1 tablet by vinny th once daily. Take on empty stomach lidocaine 25 mg/ml / prilocaine 25 mg/ml topical cream (20 sources) Antiarrhythmic, Amide Local Anesthetic Start: 12-04-2022 End: 06-12-2023 lidocaine-prilocaine (EMLA) 2.5-2.5 % cream Apply to port site about 45 mintues prior to treatment and cover 30 g 3 12/04/2022 06/12/2023 Discontinued Comment on above: Apply to port site a bout 45 mintues prior to treatment and cover melatonin 5 mg disintegrating oral tablet (20 sources) End: 07-24-2022 melatonin 5 mg ODT Take 1 tablet [...] Take 1 tablet by vinny th. metOLazone 5 mg oral tablet (14 sources) Thiazide-like Diuretic Start: 06-21-2025 End: 06-29-2025 take 1 tablet by mouth once daily metOLazone (ZAROXOLYN) 5 mg tablet Indications: Lymphedema of both lower extremities Take 1 tablet by mouth once daily for 5 days. 5 tablet 06/21/2025 06/29/2025 Discontinued (Course of therapy completed) Start: 05-08-2025 End: 05-23-2025 take 1 tablet [...] 04/06/2025 04/25/2025 Discontinued (Course of therapy completed) metoprolol tartrate 25 mg oral tablet (20 [...] 16 - Sep 18 90 tablet 3 09/25/2022 04/20/2023 Discontinued (Adjust Sig - Block E-Cancel) Start: 01-20-2022 take 1 tablet by vinny th twice daily metoprolol tartrate, short acting, (LOPRESSOR) 50 mg tablet TAKE 1 TABLET BY MOUTH TWICE DAILY 180 tablet 3 01/20/2022 Suspended Comment on above: TAKE 1 TABLET BY VINNY TH TWICE DAILY Take 1/2 tablet by m out every 12 hours. New lower dose since in the hospital setting Sep 16 - Sep 18 Take 0.5 tablets by mouth daily at bedtime. New dose as of April 20 2023 Take 12.5 mg by mout h twice daily. New dose as of 05-26-23 (readmit orders) miconazole nitrate 0.02 mg/mg topical powder (12 sources) Azole Antifungal Start: 2 End: 2 miconazole (LOTRIMIN AF, DESENEX) 2 % powder Apply 1 application to affected area twice daily. 85 g 0 07/09/2022 08/22/2022 Discontinued (Erroneous entry) Comment on above: Apply 1 application to affected area twice daily. MULTIPLE VITAMINS-MINERALS (1 source) Start: 0 ONE DAILY MULTIVITAMIN ADULT TABS 1 tablet once daily MULTIPLE VITAMINS-MINERALS [id number] Patricia Paul MULTIVITAMIN TABLET (20 sources) Start: 4 take 1 tablet by mouth once daily MULTIVITAMIN TABLET Take 1 tablet by mouth once daily. 0 12/05/2003 Active Start: 12-05-2003 take 1 tablet by vinny once daily MULTIVITAMIN TABLET Take 1 tablet by mouth once daily. 0 12/05/2003 Suspended Start: 12-05-2003 MULTIVITAMIN T ABLET Take one(1) tablet daily. 0 12/05/2003 Active Comment on above: Take one(1) tablet d aily. Take 1 tablet by vinny th once daily. naproxen sodium 220 mg oral capsule (1 source) Nonsteroidal Anti-inflammatory Drug Start: 020 ALEVE 220 MG CAPS daily as directed NAPROXEN SODIUM [id number] Ephraim Morgan LPN OMEGA-3 FATTY ACIDS (1 source) Start: 020 FISH OIL 1000 MG CAPS 1 capsule once daily OMEGA-3 FATTY ACIDS [id number] Patricia Paul ondansetron 8 mg oral tablet (20 sources) Serotonin-3 Receptor Antagonist Start: 023 End: 023 take 1 tablet by mouth every eight hours as needed Ondansetron Hcl 8 mg tablet Discontinued 8 mg PO Q8H as needed April 09, 2023 12:00am May 14, 2023 3:28pm Comment on above: Take 1 tablet by [facility] every 8 hours as needed. polyethylene glycol 3350 44120 mg powder for oral solution (20 sources) Osmotic Laxative Start: 023 End: 025 take 17 g by mouth once daily [...] chloride 20 meq extended release oral tablet (13 sources) Start: take 2 tablets by mouth twice daily potassium chloride ER (KLOR-CON M20) 20 mEq tablet Indications: Lymphedema of both lower extremities , Chronic heart failure with preserved ejection fraction (HCC) Take 2 tablets by mouth two times a day. 06/29/2025 Suspended Start: 06-26-2025 take 2 tablets by mo [facility] twice daily at mealtime Potassium Chloride 20 mEq Tablet,Er Particles/Crystals Active 40 meq PO TWICE DAILY WITH MEALS 120 30 0 June 26, 2025 12:00am Start: 07-09-2022 End: 07-19-2022 take 1 tablet by mouth once daily potassium chloride ER (K-DUR, KLOR-CON) 20 mEq tablet Take 1 tablet by mouth once daily for 10 days. 10 tablet 0 07/09/2022 07/19/2022 Active End: 06-29-2025 take 1 tablet by mouth twice daily potassium chloride ER (KLOR-CON) 20 mEq tablet Take 20 mEq by mouth two times a day. 06/29/2025 Discontinued (Dosage adjustment) Comment on above: Take 1 tablet by vinny th once daily for 10 days. predniSONE 10 mg oral tablet (12 sources) [...] Sep 20 2022 90 tablet 3 12/23/2024 Suspended Start: 09-18-2021 take 1 tablet by vinny th once daily at dinner XARELTO 20 mg tablet TAKE 1 TABLET BY MOUTH DAILY WITH DINNER 90 tablet 2 07/23/2022 Suspended Comment on above: Take 1 tablet by vinny th daily with dinner. TAKE 1 TABLET BY VINNY TH DAILY WITH DINNER Take 1 tablet by vinny th daily with dinner. Resume Sep 20 2022 SENNOSIDES-DOCUSATE SODIUM ORAL (3 sources) End: 09-19-2024 [...] te Episodic/Chronic Acute and unspecified renal failure (14 sources) Acute renal failure syndrome; Translations: [Acute kidney failure, unspecified] Onset: 5 06-19-2025 Episodic Acute cerebrovascular disease (20 sources) Cerebrovascular accident; Translations: [Cerebral infarction, unspecified] Onset: 2 Resolved: Chronic Aortic and peripheral arterial embolism or thrombosis (9 sources) Lower limb arterial embolus; Translations: [Atheroembolism of unspecified lower extremity] 05-14-2023 Chronic Comment on above: rt Bacterial infection; unspecified site (13 sources) Bacteremia caused by Gram-negative bacteria; Translations: [...] Coronary arteriosclerosis; Translations: [Atherosclerotic heart disease of [place] coronary artery without angina pectoris] Onset: 2 08-14-2021 Chronic Deficiency and other anemia (2 sources) 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 Deficiency and other anemia (2 sources) Anemia in neoplastic disease; Translations: [Anemia due [...] hypertension] Onset: 2 Resolved: 4 01-12-2012 Chronic Fluid and electrolyte disorders (1 source) Hyperkalemia; Translations: [Hyperkalemia] Onset: 5 Episodic Genitourinary symptoms and ill-defined conditions (1 source) Urinary incontinence; Translations: [Unspecified urinary incontinence] Chronic Immunity disorders (14 sources) Patient immunocompromised; Translations: [Immunodeficiency, unspecified] 05-14-2023 Chronic Immunizations and screening for infectious disease (3 sources) Immunization due; Translations: [Encounter for immunization] Episodic Late effects of cerebrovascular disease (1 source) Abnormal gait; Translations: [Other sequelae of cerebral infarction] Chronic Leukemias (20 sources) Chronic myelomonocytic leukemia; 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] Onset: 3 Chronic Leukemias (4 sources) History of myeloid leukemia; Translations: [Personal [...] respiratory systems] 07-29-2024 Episodic Other circulatory disease (4 sources) H/O: atrial fibrillation; Translations: [Personal history [...] constipation; Translations: [Slow transit constipation] Episodic Other hematologic conditions (1 source) Other specified diseases of blood and blood-forming organs; Translations: [Clonal hematopoiesis of indeterminate potential (CHIP)] Onset: 5 Chronic Other hereditary and degenerative nervous system conditions (20 sources) Restless legs; Translations: [Restless legs syndrome] Onset: 2 Chronic Other injuries and conditions due to external causes (4 sources) Multiple lacerations; Translations: [Other injury of unspecified body region, initial encounter] 05-26-2025 Episodic Other injuries and conditions due to external causes (1 source) Other injury of unspecified body region, initial encounter; Translations: [Multiple skin tears] Onset: 5 Episodic Other lower respiratory disease (1 source) Blue toes; Translations: [Cyanosis] Episodic Other lower respiratory disease (9 sources) Hypoxemia; Translations: [Hypoxemia] 05-14-2023 Episodic Other [...] foot] Onset: 0 09-28-2020 Other skin disorders (4 sources) Localized swelling of left lower leg; [...] Translations: [Disorientation, unspecified] Episodic Residual codes; unclassified (2 sources) Localized edema; Translations: [Pedal edema] Onset: 3 Episodic Residual codes; unclassified (1 source) H/O: Disorder; Translations: [Personal history of other specified conditions] 06-12-2023 Episodic Residual codes; unclassified (20 sources) Past history of procedure; Translations: [Personal history of other medical treatment] Onset: 2 10-13-2024 Episodic Residual codes; unclassified (1 source) Edema, unspecified; Translations: [Edema, unspecified] Onset: 5 Episodic Respiratory failure; insufficiency; arrest (adult) (1 source) Respiratory failure; insufficiency; arrest (adult); Translations: [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, unspecified acute renal failure type (HCC)] Onset: 5 Septicemia (except in labor) (15 sources) Sepsis; Translations: [Sepsis, unspecified organism] Onset: 5 05-14-2023 Episodic Skin and subcutaneous tissue infections [...] Established Patient Onset: 3 Unclassified (1 source) Need BMP in 1 week for hypokalemia and adjust Kcl accordingly Unclassified (1 source) Chronic atrial fibrillation, unspecified; [...] unspecified] Onset: 09-15-2022 Resolved: 09-18-2022 09-17-2022 Episodic Coronary atherosclerosis and other heart disease (1 source) Presence of aortocoronary bypass graft; Translations: [Hx of CABG] Onset: 08-14-2021 Episodic Deficiency and other anemia (2 sources) [...] sources) Long-term current use of anticoagulant; Translations: [[facility] (current) use of anticoagulants] Onset: 01-05-2023 Resolved: 01-05-2023 08-14-2021 Episodic Other aftercare (20 sources) Surgical follow-up; Translations: [Follow-up examination following surgery] Onset: 10-31-2003 Resolved: 01-02-2015 01-02-2015 Episodic Other aftercare (2 sources) 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; Translations: [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] Onset: 01-05-2023 Episodic Other circulatory disease (20 sources) History [...] involving the immune mechanism] Onset: 07-16-2023 Resolved: 06-29-2025 08-14-2021 Episodic Other hematologic conditions (1 source) [...] conditions (not mental disorders or infectious disease) (3 sources) Other specified abnormal findings of blood chemistry; Translations: [Encounter for screening for cardiovascular disorders] [...] thrombosis of unspecified vein] Onset: 05-05-2023 Resolved: 06-29-2025 05-21-2023 Episodic Residual codes; unclassified (20 sources) Insomnia; Translations: [Insomnia, unspecified] Onset: 08-13-2010 Resolved: 06-16-2023 08-13-2010 Episodic Residual codes; unclassified (20 sources) History of colonoscopy; Translations: [Other specified postprocedural states] Onset: 09-27-2015 Resolved: 01-22-2024 08-14-2021 Episodic Residual codes; unclassified (20 sources) H/O cardiac surgery; Translations: [Other specified postprocedural states] Onset: 07-10-2021 Resolved: 07-29-2024 08-14-2021 Episodic Residual codes; unclassified (1 source) Other [...] Test Name Value Interpretation Reference Range Facility CBC panel Auto (Bld)on 07-25 Erythrocyte distribution width (RBC) [Ratio] 25.1 % High 11.5-15.0 [facility] Comment on above: Order Comment: Speci men Type: BLOOD SPECIMENOrdering Facility: [facility] Address: [address] [place] [address] Performed By: #### 5 8410-2 ####[facility] LABORATORYCLIA [id number] [address] [place] Hematocrit (Bld) [Volume fraction] 29.7 % Low 39.0-51.0 [facility] Comment on above: Order Comment: Speci men Type: BLOOD SPECIMENOrdering Facility: [facility] Address: [address] [place] [address] Performed By: #### 5 8410-2 ####[facility]ORATORYCLIA [id number] [address] [place] Hemoglobin (Bld) [Mass/Vol] 9.7 g/dL Low 13.0-17.0 [facility] Comment on above: Order Comment: Speci men Type: BLOOD SPECIMENOrdering Facility: [facility] Address: [address] [place] [address] Performed By: #### 5 8410-2 ####[facility] LABORATORYCLIA [id number] [address] [place] MCH (RBC) [Entitic mass] 35.1 pg High 26.0-34.0 [facility] Comment on above: Order Comment: Speci men Type: BLOOD SPECIMENOrdering Facility: [facility] Address: [address] [place] [address] Performed By: #### 5 8410-2 ####[facility]ORATORYCLIA [id number] [address] [place] MCHC (RBC) [Mass/Vol] 32.7 g/dL Normal 30.5-36.0 [facility] Comment on above: Order Comment: Speci men Type: BLOOD SPECIMENOrdering Facility: [facility] Address: [address] [place] [address] Performed By: #### 5 8410-2 ####[facility]ORATORYCLIA [id number] [place] [address] [place] MCV (RBC) [Entitic vol] 107.6 fL High 80.0-100.0 [facility] Comment on above: Order Comment: Speci men Type: BLOOD SPECIMENOrdering Facility: [facility] Address: [address] [place] [address] Performed By: #### 5 8410-2 ####[facility]ORATORYCLIA [id number] [place] [address] [place] Nucleated RBC (Bld) [#/Vol] 0.05 10*3/uL High <0.01 [facility] Comment on above: Order Comment: Speci men Type: BLOOD SPECIMENOrdering Facility: [facility] Address: [address] [place] [address] Performed By: #### 5 8410-2 ####[facility]ORATORYCLIA [id number] [address] [place] Platelet mean volume (Bld) [Entitic vol] 10.4 fL Normal 9.0-12.7 [facility] Comment on above: Order Comment: Speci men Type: BLOOD SPECIMENOrdering Facility: [facility] Address: [address] [place] [address] Performed By: #### 5 8410-2 ####[facility]ORATORYCLIA [id number] [place] [address] [place] Platelets (Bld) [#/Vol] 184 10*3/uL Normal 150-400 [facility] Comment on above: Order Comment: Speci men Type: BLOOD SPECIMENOrdering Facility: [facility] Address: [address] [place] [address] Performed By: #### 5 8410-2 ####[facility]ORATORYCLIA [id number] [place] [address] [place] RBC (Bld) [#/Vol] 2.76 10*6/uL Low 4.20-6.00 [facility] Comment on above: Order Comment: Speci men Type: BLOOD SPECIMENOrdering Facility: [facility] Address: [address] [place] [address] Performed By: #### 5 8410-2 ####[facility] LABORATORYCLIA [id number] [place] [id number] [facility] WBC (Bld) [#/Vol] 7.82 10*3/uL Normal 3.70-11.00 [facility] Comment on above: Order Comment: Speci men Type: BLOOD SPECIMENOrdering Facility: [facility] Address: [address] [place] [address] Performed By: #### 5 8410-2 ####[facility] LABORATORYCLIA [id number] [place] [id number] [facility] CNDSon 07-25-2025 CNDS HNO ID: [id number] Author: CARLEY KEYES MD Service: General Internal Medicine Author Type: Physician Type: Discharge Summary Filed: 07/25/2025 15:05 Note Text: DISCHARGE SUMMARY PATIENT NAME: Srini Lusi ADMISSION DATE: 07/13/2025 Date or Evaluation: 07/25/2025 DISCHARGE DATE: 07/25/2025 ATTENDING PHYSICIAN: Carley Keyes MD Code Status: Full Code Highest Readmission Risk Score: 21 The 30 day readmissions risk score is derived from an internally validated risk model which evaluates patient level characteristics, utilization history, medication orders and lab results up until the day of discharge. Patients with a score of 39 or above are considered highest risk for readmission. Specific patient level drivers will be listed at the bottom of the summary. CONSULTING TEAMS DURING HOSPITALIZATION: Treatment Team: Attending Provider: Carley Keyes MD Physician Director Of Counseling: Mingo Murry PA-C Consulting: Sergio Johnson MD Consulting: CARDIOLOGY TEAM B Attending: MR NATAN ESPINOSA DIAGNOSIS: Acute new onset HFrEF OPERATIONS DURING HOSPITALIZATION: Cardiac cath HOSPITAL COURSE: Mr. Srini Luis is a 89 year old male with a h/o 4 vessel CABG (ORNELAS-LAD, SVG-RI, SVG-OM, SVG-RCA with TIMMY ligation) in 2020, atrial fibrillation, Biotronik DC PPM placement by Dr. 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 He was admitted for acute congestive heart failure exacerbation Acute new onset HFrEF Patient admitted for worsening lower and upper extremity edema that did not improve with outpatient p.o. Lasix Echo was done-EF 31%, previously 55% 2022 Cardiology was following Patient did not tolerate Entresto, metoprolol and Imdur. He was hypotensive with bradycardia Patient started on slowly on GDMT, but was challenging due to hemodynamics Spironolactone 25 mg daily added on 07/22/2025 P.o. losartan 12.5 mg daily added on 07/23/2025 Cardiology recommended to add metoprolol once patient is euvolemic. This can be done after outpatient cardiology follow-up. Patient wanted to follow-up with cardiology at [facility], referral provided by child support case officer Patient was on IV Lasix 40 mg thrice daily, this was changed to p.o. Lasix 40 mg twice daily Fluid status appears to be improving, but still had +1 lower extremity edema and some upper extremity edema CAD with history of CABG 2020 Patient currently denies chest pain Discussed with cardiology, s/p cardiac cath on 07/17/2025 Postop Diagnosis: 1. Noninvasive echo evidence of LV dysfunction ejection fraction 31% with +3 tricuspid regurg. 2. Three-vessel occlusive coronary artery disease: A. LM: Minor plaque disease. B. LAD: Mid vessel subtotal occlusion C. CX: Diffuse 95% occlusive disease. D. RCA: Proximal 80% distal diffuse 90% occlusive disease. 3. ORNELAS to LAD: Wide patent. 4. SVG to PDA: Wide patent. 5. SVG to ramus intermedius: Wide patent. A-fib Patient history of left atrial appendage ligation Continued home dose Xarelto 20 mg daily Discontinued metoprolol for bradycardia, this can be started after outpatient cardiology follow-up Chronic right IJ occlusion Patient already on Xarelto Recommended outpatient follow-up with vascular upon discharge Concerns of cellulitis He was recently treated for lower extremity cellulitis, denies pain burning or tenderness to palpation Empirically started on IV antibiotics, cultures remain negative, patient looks nontoxic, does not appear to have cellulitis clinically, will discontinue antibiotics and monitored off it. Status post Biotronik PPM 09/2022 Device was checked on this admission Hypothyroid Restarted home Synthyroid Patient was discharged in hemodynamically stable condition to the SNF and was advised to follow-up with PCP and cardiology as outpatient. PATIENT CONDITION AT DISCHARGE: Stable DISCHARGE DISPOSITION: Nursing Home Facility Physical Exam: General: Not in acute distress CVS: S1-S2 normal, no murmur, No JVD RS: Clear to auscultation bilaterally Abdomen: Soft, nontender, no organomegaly Musculoskeletal: upper extremity edema bilaterally-improving +1 bilateral lower extremity pedal edema-improving Neuro: AO x3, No focal deficits Psy: Cooperative, No anxiety/depression DIET: Low Salt Resume pre-hospital diet ACTIVITY: Resume pre-hospital activity ALLERGIES Allergen Reactions Simvastatin Other: See Comments Elevated CK DISCHARGE MEDICATION: Medication List START taking these medications empagliflozin 10 mg tablet Commonly known as: JARDIANCE Take 1 tabl (more content not included)... [facility] CONSULT PROGon 07-25-2025 CONSULT PROG HNO ID: [id number] Author: JAXSON ARGUELLES APRN.PHOTO MASK PATTERN GENERATOR Service: Cardiovascular Medicine Author Type: Nurse Practitioner Type: Consult Progress Note Filed: 07/25/2025 15:23 Note Text: CARDIOLOGY PROGRESS NOTE Cardiology attending: Dr. Monaco Reason for initial consult: CHF INTERVAL HPI: Mr. 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 He was recently admitted with cellulitis. Patient is currently admitted for acute on chronic heart failure. INTERVAL ROS: Patient reports improvement in shortness of breath, now able to walk the halls without being short of breath, and requiring only 1 L of oxygen and no chest pain palpitations or lightheadedness . lower extremity edema. Patient has significantly improved. . Denies orthopnea and PND. MEDICATIONS: Current Facility-Administered Medications Medication Dose Route Frequency NaCl 0.9% iv flush bag 20 mL INTRAVENOUS PRN aluminum-magnesium hydroxide-simethicone 200-200-20 mg/5 mL 30 mL 30 mL ORAL DAILY PRN ondansetron 4 mg tab(s) (ZOFRAN) 4 mg ORAL q 6 H PRN Or ondansetron (PF) 4 mg injection (ZOFRAN) 4 mg INTRAVENOUS q 6 H PRN polyethylene glycol 3350 17 g packet 17 g ORAL DAILY PRN acetaminophen 650 mg tab(s) (TYLENOL) 650 mg ORAL q 6 H PRN HYDROcodone 5 mg - acetaminophen 325 mg tablet (NORCO) 1 tablet ORAL q [address] 40 mg tab(s) (PROTONIX) 40 mg ORAL DAILY (6 AM) multivitamin-ferrous fumarate-folic acid 1 tablet (CENTRUM) 1 tablet ORAL DAILY cyanocobalamin 1,000 mcg tab(s) (VITAMIN B-12) 1,000 mcg ORAL DAILY folic acid 1 mg tab(s) 1 mg ORAL DAILY atorvastatin 20 mg tab(s) (LIPITOR) 20 mg ORAL DAILY levothyroxine 100 mcg tab(s) (SYNTHROID) 100 mcg ORAL DAILY aspirin 81 mg chewable tab(s) 81 mg ORAL DAILY miconazole 2 % 1 application topical powder 1 application TOPICAL BID nitroglycerin sublingual 0.4 mg tab(s) (NITROQUICK) 0.4 mg SUBLINGUAL q 5 MIN PRN empagliflozin 10 mg tab(s) (JARDIANCE) 10 mg ORAL DAILY melatonin 6 mg tab(s) 6 mg ORAL AT BEDTIME PRN menthol 4 % topical gel (BIOFREEZE) TOPICAL TID PRN rivaroxaban 20 mg tab(s) (XARELTO) 20 mg ORAL DAILY wDINNER losartan 12.5 mg tab(s) (COZAAR) 12.5 mg ORAL DAILY metoprolol succinate ER 12.5 mg tab(s) (TOPROL XL) 12.5 mg ORAL DAILY furosemide 40 mg injection (LASIX) 40 mg INTRAVENOUS q 12 H 6a/6p spironolactone 12.5 mg tab(s) (ALDACTONE) 12.5 mg ORAL AT BEDTIME Vital Signs 07/24/25 2245 07/25/25 0535 07/25/25 0543 07/25/25 0800 BP: 107/53 113/65 115/64 Pulse: 71 77 83 Resp: 20 Temp: 36.4 ?C (97.5 ?F) 36.5 ?C (97.7 ?F) 36.4 ?C (97.6 ?F) TempSrc: Oral Temporal Oral SpO2: (!) 89% 97% 100% Weight: 88 kg (194 lb 0.1 oz) Height: PHYSICAL EXAM: Gen: AANDO x 3 Neck: no jugular venous distention Cardiac: RRR without murmur, gallop, or rubs. No ectopy. Resp: clear to auscultation bilaterally Abd: Soft, non-tender. Bowel sounds normal. No masses, organomegaly, hernias. Ext: +1 edema, moves all extremities with no apparent weakness Telemetry: A-fib Intake/Output: Intake/Output Summary (Last 24 hours) at 07/25/2025 1510 Last data filed at 07/25/2025 1023 Gross per 24 hour Intake 400 ml Output 785 ml Net -385 ml Labs: Recent Labs 07/25/25 0544 07/24/25 0507 07/23/25 0749 WBC 7.82 6.69 5.40 HB 9.7* 10.2* 9.7* HCT 29.7* 31.0* 29.6* PLT 184 208 186 Recent Labs 07/24/25 0950 NA 139 K 4.5 CHLOR 95* CO2 37* BUN 46* CREAT 1.16 GLUC 150* Magnesium Date Value Ref Range Status 07/20/2025 2.4 1.6 - 2.6 mg/dL Final TSH 9.368 07/14/2025 Triglyceride 37 07/14/2025 HDL Cholesterol 49 07/14/2025 LDL Chol, [facility] 28 07/14/2025 Cholesterol, Total 88 07/14/2025 Lab Results Component Value Date HSTROP 64.8 (H) 07/14/2025 HSTROP 90.6 (H) 07/14/2025 HSTROP 77.7 (H) 07/13/2025 PBNP 7,187 (H) 07/21/2025 ASSESSMENT AND PLAN: HFrEF EF of 35% Unclear etiology for decreased in EF, as coronary angiography showed patent grafts. Diuretics was decreased to 40 mg IV twice daily with net fluid loss of 781 mg yesterday. Creatinine continues to be stable at 1.16 today. On assessment patient does report improvement in shortness of breath, he stated he was able to walk the halls without requiring oxygen and being significantly short of breath. Lower extremity edema has also greatly improved now with trace edema. Given resolution of symptoms, with trace lower extremity edema, transition Lasix to 40 mg p.o. twice daily For heart failure management, patient is currently on Jardiance 10 mg daily, losartan 12.5 mg daily and Aldacton (more content not included)... [facility] THERAPY NTon 07-25-2025 THERAPY NT HNO ID: [id number] Author: CHASTITY HEMPHILL COTA/L Service: Occupational Therapy Author Type: Supervisor [employer] Type: Therapy (PT/OT/Speech/Resp) Filed: 07/25/2025 12:03 Note Text: -- Attestation signed by Nayely Heck OT/L at 07/25/2025 3:30 PM I reviewed and agree with the documentation corresponding to this therapy visit. SIGNATURE: TUSHAR Duckworth DATE: July 25, 2025 TIME: 3:30 PM -- Occupational Therapy Treatment Summary SERVICE DATE: 07/25/2025 SERVICE TIME: 1107 to 1140 ROOM: [id number] OT 6 Clicks Score: 15 DISCHARGE RECOMMENDATIONS Subacute/SNF Recommended Discharge Disposition Comments: Patient requiring increased assist for ADLs and mobility. Pt would benefit from continued OT services to increase safety and independence with ADLs, decrease risk for falls and improve functional activity tolerance. Recommended Discharge Disposition Due to: Patient requires daily (5x/week) skilled therapy at next level of care., Functional deficits requiring ongoing therapy service prior to discharge home., ADL impairment, Functional status decline, Requires multiple therapy disciplines Anticipated Discharge Needs: Physical Assist at Home, Supervision at Home Physical Assist at Home for: Ambulation, Cleaning, Laundry, Meals, Safety, Self Care, Shopping, Transportation Supervision at Home due to: Decreased safety awareness ASSESSMENT Response to Therapy Interventions: Good Participation in Activities, Low Activity Tolerance, Requires Additional Time to Complete Activities, Needs Frequent Redirection or Reinstruction Pt willing to participate in OT session this pm. Pt's daughter present and very supportive. Pt noted with edema throughout extremities. Instruced pt on AROM of bilateral UE's. Pt required hands on assist for LB ADL's and sit>stands from bedside chair. PRECAUTIONS Bed/Chair Alarm, Fall Risk, Lines/Tubes/Drains 2L NC CURRENT HOSPITAL COURSE Pt presents to [facility] with complaints of extremity edema and after a hearth cath was found to have decreased EF of 31%. Admitted with dx of congestive heart failure. LHC done 07/17. Cardio following. Relevant Past Medical History: chronic atrial fibrillation on Xarelto, CHF, hypothyroidism, hypercholesterolemia, CML and chronic venous stasis HOME LIVING Patient Lives With: Self/Alone, Other: See Comment Comments: lives in independent living. Assistance Available: Other: See Comment, PRN Comments: lives in independent living and can have help in emergencies but does not have consistent help. Entry To Home: No Stairs, Elevator Number Of Stairs To Bed/Bath: 0 Stairs to Bed/Bath with: No Rail Tub/Shower Type: walk in shower with grab bars and shower chair. Laundry: in apartment reports recently having [employer] complete last 2 weeks prior to this pt was able to complete himself Equipment Owned: Cane, Walker- Wheeled, Rollator, Scooter- Power, Shower Chair, Hand Held Shower PRIOR FUNCTIONAL LEVEL Within Functional Limits, Required Assistance, History of Falls Assistance Required With: Shopping, Transportation, Self Care, Meals Pt reports being mod I with mobility at baseline using a FWW. Pt reports that he needs assist with transportation and putting on compression stockings. Pt reports he is able to bath on his own and cook and clean. Recent hired [employer] to assist with IADLs. Baseline Cognition: Oriented to self, Oriented to place, Oriented to time, Oriented to situation SUBJECTIVE I'm getting out of here today.' COGNITION Orientation Deficits: Not oriented to Time Responsiveness: Alert, Awake Memory Deficits: Short Term Executive Function Deficits: Safety Awareness, Problem Solving, Insight to Deficits, Judgement THERAPY DIAGNOSIS Decreased activities of daily living (ADL), Reduced mobility-other, Muscle Weakness (generalized) TREATMENT INTERVENTIONS Self Fdc Management (58883), Therapeutic Activity (89398) Timed Code Treatment (minutes): 30 Skilled Treatment Time (minutes): 30 TRAINING AND EDUCATION PROVIDED Activity Adaptation/Compensatory Strategies, Assistive Device Use, Benefits of In-Hospital Mobility, Command Following, Cognitive Skills, Discharge Planning, Edema Management, Energy Conservation, Expected Functional Level, Functional Mobility Involving ADLs, Grooming Tasks, Insight into Deficits, Lower Extremity Dressing, Memory/Attention, Orientation, Role of Occupational Therapy, Safety/Judgment, Sitting Balance to Improve Jamul with ADLs/Self-Care, Standing Balance to Improve Jamul with ADLs/Self-Care, Transfer - Sit to Stand, Upper Extremity Bathing, Upper Extremity Dressing, Lower Extremity Bathing THERAPEUTIC SKILLS USED Activity Dosing, Assessment of Tolerance Including Vitals (more content not included)... Normal [facility] Basic metabolic 2000 panelon 07-24-2025 Anion gap [Moles/Vol] 7 mmol/L Normal 5-16 [facility] Comment on above: Order Comment: Speci men Type: BLOOD SPECIMENOrdering Facility: [facility] Address: [address] [place] [address] Performed By: #### 2 4321-2 ####[facility]ORATORYCLIA [id number] [place] [address] [place] Calcium [Mass/Vol] 8.6 mg/dL Normal 8.5-10.5 [facility] Comment on above: Order Comment: Speci men Type: BLOOD SPECIMENOrdering Facility: [facility] Address: [address] [place] [address] Performed By: #### 2 4321-2 ####[facility]ORATORYCLIA [id number] [place] [id number] [place] Chloride [Moles/Vol] 95 mmol/L Low 98-107 [facility] Comment on above: Order Comment: Speci men Type: BLOOD SPECIMENOrdering Facility: [facility] Address: [address] [place] [address] Performed By: #### 2 4321-2 ####[facility]ORATORYCLIA [id number] [place] [address] [place] CO2 [Moles/Vol] 37 mmol/L High 21-32 [facility] Comment on above: Order Comment: Speci men Type: BLOOD SPECIMENOrdering Facility: [facility] Address: [address] [place] [address] Performed By: #### 2 4321-2 ####[facility]ORATORYCLIA [id number] [place] [address] [place] Creatinine [Mass/Vol] 1.16 mg/dL Normal 0.50-1.40 [facility] Comment on above: Order Comment: Speci men Type: BLOOD SPECIMENOrdering Facility: [facility] Address: [address] [place] [address] Result Comment: Kierra ents receiving either N-Acetylcysteine (NAC) or Metamizole prior to venipuncture, may have falsely depressed results. Performed By: #### 2 4321-2 ####[facility]ATORYCLIA [id number] [place] [address] [place] eGFRcr SerPlBld CKD-EPI 2020 60 mL/min/1.73m??? Normal >=60 [facility] Comment on above: Order Comment: Speci men Type: BLOOD SPECIMENOrdering Facility: [facility] Address: [address] [place] [address] Result Comment: Concepción mated Glomerular Filtration Rate [...] actual GFR. Performed By: #### 2 4321-2 ####[facility]ATORYCLIA [id number] [place] [id number] [place] Glucose [Mass/Vol] 150 mg/dL High 70-100 [facility] Comment on above: Order Comment: Elfego gilbert Type: BLOOD SPECIMENOrdering Facility: [facility] Address: [address] [place] [address] Result Comment: The [place] Diabetes Association (ADA) provides guidance for cutoff values for fasting glucose and random glucose. The ADA defines fasting as no caloric intake for at least 8 hours. Fasting plasma glucose results between 100 to 125 mg/dL indicate increased risk for diabetes (prediabetes). Fasting plasma glucose results greater than or equal to 126 mg/dL meet the criteria for diagnosis of diabetes. In the absence of unequivocal hyperglycemia, results should be confirmed by repeat testing. In a patient with classic symptoms of hyperglycemia or hyperglycemic crisis, random plasma glucose results greater than or equal to 200 mg/dL meet the criteria for diagnosis of diabetes. Reference: Standards of Medical Care in Diabetes 2016, [place] Diabetes Association. Diabetes Care. 2016.39(Suppl 1). Results may be falsely elevated after the administration of Sulfapyridine. Results may be falsely depressed after the administration of Sulfasalazine. Performed By: #### 2 4321-2 ####[facility]ATORYCLIA [id number] [place] [address] [place] Potassium [Moles/Vol] 4.5 mmol/L Normal 3.5-5.1 [facility] Comment on above: Order Comment: Elfego gilbert Type: BLOOD SPECIMENOrdering Facility: [facility] Address: [address] [place] [id number] Performed By: #### 2 4321-2 ####[facility]ORATORYCLIA [id number] [place] [id number] [place] Sodium [Moles/Vol] 139 mmol/L Normal 136-145 [facility] Comment on above: Order Comment: Speci men Type: BLOOD SPECIMENOrdering Facility: [facility] Address: [address] [place] [address] Performed By: #### 2 4321-2 ####[facility]ORATORYCLIA [id number] [place] [id number] [place] Urea nitrogen [Mass/Vol] 46 mg/dL High 7-26 [facility] Comment on above: Order Comment: Speci men Type: BLOOD SPECIMENOrdering Facility: [facility] Address: [address] [place] [address] Performed By: #### 2 4321-2 ####[facility]ATORYCLIA [id number] [place] [id number] [place] CBC panel Auto (Bld)on 07-24 Erythrocyte distribution width (RBC) [Ratio] 24.7 % High 11.5-15.0 [facility] Comment on above: Order Comment: Speci men Type: BLOOD SPECIMENOrdering Facility: [facility] Address: [address] [place] [address] Performed By: #### 5 8410-2 ####[facility]ATORYCLIA [id number] [place] [address] [place] Hematocrit (Bld) [Volume fraction] 31.0 % Low 39.0-51.0 [facility] Comment on above: Order Comment: Speci men Type: BLOOD SPECIMENOrdering Facility: [facility] Address: [address] [place] [address] Performed By: #### 5 8410-2 ####[facility]ORATORYCLIA [id number] [address] [place] Hemoglobin (Bld) [Mass/Vol] 10.2 g/dL Low 13.0-17.0 [facility] Comment on above: Order Comment: Speci men Type: BLOOD SPECIMENOrdering Facility: [facility] Address: [address] [place] [address] Performed By: #### 5 8410-2 ####[facility]ATORYCLIA [id number] [address] [place] MCH (RBC) [Entitic mass] 35.4 pg High 26.0-34.0 [facility] Comment on above: Order Comment: Speci men Type: BLOOD SPECIMENOrdering Facility: [facility] Address: [address] [place] [address] Performed By: #### 5 8410-2 ####[facility]ATORYCLIA [id number] [place] [address] [place] MCHC (RBC) [Mass/Vol] 32.9 g/dL Normal 30.5-36.0 [facility] Comment on above: Order Comment: Speci men Type: BLOOD SPECIMENOrdering Facility: [facility] Address: [address] [place] [address] Performed By: #### 5 8410-2 ####[facility]ORATORYCLIA [id number] [address] [place] MCV (RBC) [Entitic vol] 107.6 fL High 80.0-100.0 [facility] Comment on above: Order Comment: Speci men Type: BLOOD SPECIMENOrdering Facility: [facility] Address: [address] [place] [address] Performed By: #### 5 8410-2 ####[facility]ATORYCLIA [id number] [address] [place] Nucleated RBC (Bld) [#/Vol] 0.05 10*3/uL High <0.01 [facility] Comment on above: Order Comment: Speci men Type: BLOOD SPECIMENOrdering Facility: [facility] Address: [address] [place] [address] Performed By: #### 5 8410-2 ####[facility]ORATORYCLIA [id number] [address] [place] Platelet mean volume (Bld) [Entitic vol] 11.0 fL Normal 9.0-12.7 [facility] Comment on above: Order Comment: Speci men Type: BLOOD SPECIMENOrdering Facility: [facility] Address: [address] [place] [address] Performed By: #### 5 8410-2 ####[facility]ORATORYCLIA [id number] [place] [id number] [facility] Platelets (Bld) [#/Vol] 208 10*3/uL Normal 150-400 [facility] Comment on above: Order Comment: Speci men Type: BLOOD SPECIMENOrdering Facility: [facility] Address: [address] [place] [address] Performed By: #### 5 8410-2 ####[facility]ORATORYCLIA [id number] [place] [id number] [place] RBC (Bld) [#/Vol] 2.88 10*6/uL Low 4.20-6.00 [facility] Comment on above: Order Comment: Speci men Type: BLOOD SPECIMENOrdering Facility: [facility] Address: [address] [place] [address] Performed By: #### 5 8410-2 ####[facility]ATORYCLIA [id number] [place] [id number] [facility] [place] WBC (Bld) [#/Vol] 6.69 10*3/uL Normal 3.70-11.00 [facility] Comment on above: Order Comment: Speci men Type: BLOOD SPECIMENOrdering Facility: [facility] Address: [address] [place] [address] Performed By: #### 5 8410-2 ####[facility]ORATORYCLIA [id number] [place] [id number] [facility] CONSULT PROGon 07-24-2025 CONSULT PROG HNO ID: [id number] Author: JAXSON ARGUELLES APRN.PH[employer] M[employer] PATTERN GENERATOR Service: Cardiovascular Medicine Author Type: Nurse Practitioner Type: Consult Progress Note Filed: 07/24/2025 15:17 Note Text: CARDIOLOGY PROGRESS NOTE Cardiology attending: Dr. Monaco Reason for initial consult: CHF INTERVAL HPI: Mr. 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 He was recently admitted with cellulitis. Patient is currently admitted for acute on chronic heart failure. INTERVAL ROS: Patient reports improvement in shortness of breath, now able to walk the halls without being short of breath, and requiring only 2 L of oxygen and no chest pain palpitations or lightheadedness . lower extremity edema. Patient has significantly improved. . Denies orthopnea and PND. MEDICATIONS: Current Facility-Administered Medications Medication Dose Route Frequency NaCl 0.9% iv flush bag 20 mL INTRAVENOUS PRN aluminum-magnesium hydroxide-simethicone 200-200-20 mg/5 mL 30 mL 30 mL ORAL DAILY PRN ondansetron 4 mg tab(s) (ZOFRAN) 4 mg ORAL q 6 H PRN Or ondansetron (PF) 4 mg injection (ZOFRAN) 4 mg INTRAVENOUS q 6 H PRN polyethylene glycol 3350 17 g packet 17 g ORAL DAILY PRN acetaminophen 650 mg tab(s) (TYLENOL) 650 mg ORAL q 6 H PRN HYDROcodone 5 mg - acetaminophen 325 mg tablet (NORCO) 1 tablet ORAL q [address] 40 mg tab(s) (PROTONIX) 40 mg ORAL DAILY (6 AM) multivitamin-ferrous fumarate-folic acid 1 tablet (CENTRUM) 1 tablet ORAL DAILY cyanocobalamin 1,000 mcg tab(s) (VITAMIN B-12) 1,000 mcg ORAL DAILY folic acid 1 mg tab(s) 1 mg ORAL DAILY atorvastatin 20 mg tab(s) (LIPITOR) 20 mg ORAL DAILY levothyroxine 100 mcg tab(s) (SYNTHROID) 100 mcg ORAL DAILY aspirin 81 mg chewable tab(s) 81 mg ORAL DAILY miconazole 2 % 1 application topical powder 1 application TOPICAL BID nitroglycerin sublingual 0.4 mg tab(s) (NITROQUICK) 0.4 mg SUBLINGUAL q 5 MIN PRN empagliflozin 10 mg tab(s) (JARDIANCE) 10 mg ORAL DAILY melatonin 6 mg tab(s) 6 mg ORAL AT BEDTIME PRN menthol 4 % topical gel (BIOFREEZE) TOPICAL TID PRN furosemide 40 mg injection (LASIX) 40 mg INTRAVENOUS TID rivaroxaban 20 mg tab(s) (XARELTO) 20 mg ORAL DAILY wDINNER spironolactone 12.5 mg tab(s) (ALDACTONE) 12.5 mg ORAL DAILY losartan 12.5 mg tab(s) (COZAAR) 12.5 mg ORAL DAILY Vital Signs 07/24/25 0620 07/24/25 0722 07/24/25 1131 07/24/25 1300 BP: 108/55 102/55 114/59 Pulse: 89 82 91 Resp: 18 18 Temp: 36.9 ?C (98.5 ?F) 36.8 ?C (98.2 ?F) 36.4 ?C (97.5 ?F) TempSrc: Oral Oral SpO2: 90% 99% 90% Weight: 82.9 kg (182 lb 12.2 oz) Height: PHYSICAL EXAM: Gen: AANDO x 3 Neck: no jugular venous distention Cardiac: RRR without murmur, gallop, or rubs. No ectopy. Resp: clear to auscultation bilaterally Abd: Soft, non-tender. Bowel sounds normal. No masses, organomegaly, hernias. Ext: +1 edema, moves all extremities with no apparent weakness Telemetry: A-fib Intake/Output: Intake/Output Summary (Last 24 hours) at 07/24/2025 1415 Last data filed at 07/24/2025 1349 Gross per 24 hour Intake 356 ml Output 2190 ml Net -1834 ml Labs: Recent Labs 07/24/25 0507 07/23/25 0749 07/22/25 0528 WBC 6.69 5.40 7.43 HB 10.2* 9.7* 10.1* HCT 31.0* 29.6* 31.2* PLT 208 186 204 Recent Labs 07/24/25 0950 07/22/25 0527 NA 139 139 K 4.5 4.2 CHLOR 95* 96* CO2 37* 37* BUN 46* 34* CREAT 1.16 1.19 GLUC 150* 102* Magnesium Date Value Ref Range Status 07/20/2025 2.4 1.6 - 2.6 mg/dL Final TSH 9.368 07/14/2025 Triglyceride 37 07/14/2025 HDL Cholesterol 49 07/14/2025 LDL Chol, Marva 28 07/14/2025 Cholesterol, Total 88 07/14/2025 Lab Results Component Value Date HSTROP 64.8 (H) 07/14/2025 HSTROP 90.6 (H) 07/14/2025 HSTROP 77.7 (H) 07/13/2025 PBNP 7,187 (H) 07/21/2025 ASSESSMENT AND PLAN: HFrEF EF of 35% Unclear etiology for decreased in EF, as coronary angiography showed patent grafts. For diuresing patient has been on 40 mg of IV Lasix 3 times daily with a total of 3 L, with trace lower extremity edema on assessment today with improvement in clinical symptoms of heart failure. Creatinine continues to be stable at 1.16 today. Will decrease Lasix to 2 times a day for at least the next 24 hours and consider p.o. diuretics. For heart failure management, patient is currently on Jardiance 10 mg daily, losartan 12.5 mg daily and Aldactone 12.5 mg daily. Beta-blockers were held given patient was hypotensive, blood pressure seems to be stabilized, we will reintroduce metoprolol succinate at 12.5 mg daily with hold parameters. LifeVes (more content not included)... Normal [facility] CBC panel Auto (Bld)on 07-23 Erythrocyte distribution width (RBC) [Ratio] 24.7 % High 11.5-15.0 [facility] Comment on above: Order Comment: Elfego gilbert Type: BLOOD SPECIMENOrdering Facility: [facility] Address: [address] [place] [address] Performed By: #### 5 8410-2 ####[facility]ORATORYCLIA [id number] [place] [address] [place] Hematocrit (Bld) [Volume fraction] 29.6 % Low 39.0-51.0 [facility] Comment on above: Order Comment: Elfego gilbert Type: BLOOD SPECIMENOrdering Facility: [facility] Address: [address] [place] [address] Performed By: #### 5 8410-2 ####[facility]ORATORYCLIA [id number] [address] [place] Hemoglobin (Bld) [Mass/Vol] 9.7 g/dL Low 13.0-17.0 [facility] Comment on above: Order Comment: Speci men Type: BLOOD SPECIMENOrdering Facility: [facility] Address: [address] [place] [address] Performed By: #### 5 8410-2 ####[facility]ORATORYCLIA [id number] [address] [place] MCH (RBC) [Entitic mass] 35.4 pg High 26.0-34.0 [facility] Comment on above: Order Comment: Speci men Type: BLOOD SPECIMENOrdering Facility: [facility] Address: [address] [place] [address] Performed By: #### 5 8410-2 ####[facility]ORATORYCLIA [id number] [address] OF [facility] MCHC (RBC) [Mass/Vol] 32.8 g/dL Normal 30.5-36.0 [facility] Comment on above: Order Comment: Speci men Type: BLOOD SPECIMENOrdering Facility: [facility] Address: [address] [place] [address] Performed By: #### 5 8410-2 ####[facility]ORATORYCLIA [id number] [address] [place] MCV (RBC) [Entitic vol] 108.0 fL High 80.0-100.0 [facility] Comment on above: Order Comment: Speci men Type: BLOOD SPECIMENOrdering Facility: [facility] Address: [address] [place] [address] Performed By: #### 5 8410-2 ####[facility]ATORYCLIA [id number] [address] [place] Nucleated RBC (Bld) [#/Vol] 0.04 10*3/uL High <0.01 [facility] Comment on above: Order Comment: Speci men Type: BLOOD SPECIMENOrdering Facility: [facility] Address: [address] [place] [address] Performed By: #### 5 8410-2 ####[facility]ORATORYCLIA [id number] [place] [id number] [place] Platelet mean volume (Bld) [Entitic vol] 11.0 fL Normal 9.0-12.7 [facility] Comment on above: Order Comment: Speci men Type: BLOOD SPECIMENOrdering Facility: [facility] Address: [address] [place] [address] Performed By: #### 5 8410-2 ####[facility]ATORYCLIA [id number] [place] [id number] [place] Platelets (Bld) [#/Vol] 186 10*3/uL Normal 150-400 [facility] Comment on above: Order Comment: Speci men Type: BLOOD SPECIMENOrdering Facility: [facility] Address: [address] [place] [address] Performed By: #### 5 8410-2 ####[facility]ATORYCLIA [id number] [place] [id number] [place] RBC (Bld) [#/Vol] 2.74 10*6/uL Low 4.20-6.00 [facility] Comment on above: Order Comment: Speci men Type: BLOOD SPECIMENOrdering Facility: [facility] Address: [address] [place] [address] Performed By: #### 5 8410-2 ####[facility]ATORYCLIA [id number] [place] [id number] [place] WBC (Bld) [#/Vol] 5.40 10*3/uL Normal 3.70-11.00 [facility] Comment on above: Order Comment: Speci men Type: BLOOD SPECIMENOrdering Facility: [facility] Address: [address] [place] [address] Performed By: #### 5 8410-2 ####[facility]ATORYCLIA [id number] [place] [id number] [place] Basic metabolic 2000 panelon 07-22-2025 Anion gap [Moles/Vol] 6 mmol/L Normal 5-16 [facility] Comment on above: Order Comment: Speci men Type: BLOOD SPECIMENOrdering Facility: [facility] Address: [address] [place] [address] Performed By: #### 2 4321-2 ####[facility]ATORYCLIA [id number] [place] [address] [place] Calcium [Mass/Vol] 8.4 mg/dL Low 8.5-10.5 [facility] Comment on above: Order Comment: Speci men Type: BLOOD SPECIMENOrdering Facility: [facility] Address: [address] [place] [address] Performed By: #### 2 4321-2 ####[facility]ORATORYCLIA [id number] [place] [address] [place] Chloride [Moles/Vol] 96 mmol/L Low 98-107 [facility] Comment on above: Order Comment: Speci men Type: BLOOD SPECIMENOrdering Facility: [facility] Address: [address] [place] [address] Performed By: #### 2 4321-2 ####[facility]ATORYCLIA [id number] [place] [address] [place] CO2 [Moles/Vol] 37 mmol/L High 21-32 [facility] Comment on above: Order Comment: Speci men Type: BLOOD SPECIMENOrdering Facility: [facility] Address: [address] [place] [address] Performed By: #### 2 4321-2 ####[facility]ATORYCLIA [id number] [place] [id number] [place] Creatinine [Mass/Vol] 1.19 mg/dL Normal 0.50-1.40 [facility] Comment on above: Order Comment: Speci men Type: BLOOD SPECIMENOrdering Facility: [facility] Address: [address] [place] [address] Result Comment: Kierra ents receiving either N-Acetylcysteine (NAC) or Metamizole prior to venipuncture, may have falsely depressed results. Performed By: #### 2 4321-2 ####[facility]ATORYCLIA [id number] [place] [id number] [place] eGFRcr SerPlBld CKD-EPI 2020 58 mL/min/1.73m??? Low >=60 [facility] Comment on above: Order Comment: Elfego gilbert Type: BLOOD SPECIMENOrdering Facility: [facility] Address: [address] [place] [address] Result Comment: Concepción mated Glomerular Filtration Rate [...] actual GFR. Performed By: #### 2 4321-2 ####[facility]ATORYCLIA [id number] [place] [address] [place] Glucose [Mass/Vol] 102 mg/dL High 70-100 [facility] Comment on above: Order Comment: Elfego gilbert Type: BLOOD SPECIMENOrdering Facility: [facility] Address: [address] [place] [address] Result Comment: The [place] Diabetes [employer] (ADA) provides guidance for cutoff values for fasting glucose and random glucose. The ADA defines fasting as no caloric intake for at least 8 hours. Fasting plasma glucose results between 100 to 125 mg/dL indicate increased risk for diabetes (prediabetes). Fasting plasma glucose results greater than or equal to 126 mg/dL meet the criteria for diagnosis of diabetes. In the absence of unequivocal hyperglycemia, results should be confirmed by repeat testing. In a patient with classic symptoms of hyperglycemia or hyperglycemic crisis, random plasma glucose results greater than or equal to 200 mg/dL meet the criteria for diagnosis of diabetes. Reference: Standards of Medical Care in Diabetes 2016, [place] [employer]. Diabetes Care. 2016.39(Suppl 1). Results may be falsely elevated after the administration of Sulfapyridine. Results may be falsely depressed after the administration of Sulfasalazine. Performed By: #### 2 4321-2 ####[facility]ORATORYCLIA [id number] [place] [id number] [place] [facility] Potassium [Moles/Vol] 4.2 mmol/L Normal 3.5-5.1 [facility] Comment on above: Order Comment: Speci men Type: BLOOD SPECIMENOrdering Facility: [facility] Address: [address] [place] [address] Performed By: #### 2 4321-2 ####[facility]ORATORYCLIA [id number] [place] [id number] [facility] Sodium [Moles/Vol] 139 mmol/L Normal 136-145 [facility] Comment on above: Order Comment: Speci men Type: BLOOD SPECIMENOrdering Facility: [facility] Address: [address] [place] [address] Performed By: #### 2 4321-2 ####[facility]ORATORYCLIA [id number] [address] [place] [facility] Urea nitrogen [Mass/Vol] 34 mg/dL High 7-26 [facility] Comment on above: Order Comment: Speci men Type: BLOOD SPECIMENOrdering Facility: [facility] Address: [address] [place] [address] Performed By: #### 2 4321-2 ####[facility]ORATORYCLIA [id number] [address] CBC panel Auto (Bld)on 07-22 Erythrocyte distribution width (RBC) [Ratio] 24.3 % High 11.5-15.0 [facility] Comment on above: Order Comment: Speci men Type: BLOOD SPECIMENOrdering Facility: [facility] Address: [address] [place] [address] Performed By: #### 5 8410-2 ####[facility]ORATORYCLIA [id number] [address] [place] Hematocrit (Bld) [Volume fraction] 31.2 % Low 39.0-51.0 [facility] Comment on above: Order Comment: Speci men Type: BLOOD SPECIMENOrdering Facility: [facility] Address: [address] [place] [address] Performed By: #### 5 8410-2 ####[facility]ATORYCLIA [id number] [place] [address] [place] Hemoglobin (Bld) [Mass/Vol] 10.1 g/dL Low 13.0-17.0 [facility] Comment on above: Order Comment: Speci men Type: BLOOD SPECIMENOrdering Facility: [facility] Address: [address] [place] [address] Performed By: #### 5 8410-2 ####[facility]ATORYCLIA [id number] [address] [place] MCH (RBC) [Entitic mass] 35.1 pg High 26.0-34.0 [facility] Comment on above: Order Comment: Speci men Type: BLOOD SPECIMENOrdering Facility: [facility] Address: [address] [place] [address] Performed By: #### 5 8410-2 ####[facility]ATORYCLIA [id number] [address] [place] MCHC (RBC) [Mass/Vol] 32.4 g/dL Normal 30.5-36.0 [facility] Comment on above: Order Comment: Speci men Type: BLOOD SPECIMENOrdering Facility: [facility] Address: [address] [place] [address] Performed By: #### 5 8410-2 ####[facility]ORATORYCLIA [id number] [address] [place] MCV (RBC) [Entitic vol] 108.3 fL High 80.0-100.0 [facility] Comment on above: Order Comment: Speci men Type: BLOOD SPECIMENOrdering Facility: [facility] Address: [address] [place] [address] Performed By: #### 5 8410-2 ####[facility]ATORYCLIA [id number] [place] [id number] [place] Nucleated RBC (Bld) [#/Vol] 0.05 10*3/uL High <0.01 [facility] Comment on above: Order Comment: Speci men Type: BLOOD SPECIMENOrdering Facility: [facility] Address: [address] [place] [address] Performed By: #### 5 8410-2 ####[facility]ATORYCLIA [id number] [place] [address] [place] Platelet mean volume (Bld) [Entitic vol] 11.0 fL Normal 9.0-12.7 [facility] Comment on above: Order Comment: Speci men Type: BLOOD SPECIMENOrdering Facility: [facility] Address: [address] [place] [address] Performed By: #### 5 8410-2 ####[facility]ATORYCLIA [id number] [place] [address] [place] Platelets (Bld) [#/Vol] 204 10*3/uL Normal 150-400 [facility] Comment on above: Order Comment: Speci men Type: BLOOD SPECIMENOrdering Facility: [facility] Address: [address] [place] [address] Performed By: #### 5 8410-2 ####[facility]ATORYCLIA [id number] [place] [address] [place] RBC (Bld) [#/Vol] 2.88 10*6/uL Low 4.20-6.00 [facility] Comment on above: Order Comment: Speci men Type: BLOOD SPECIMENOrdering Facility: [facility] Address: [address] [place] [address] Performed By: #### 5 8410-2 ####[facility]ATORYCLIA [id number] [place] [id number] [place] WBC (Bld) [#/Vol] 7.43 10*3/uL Normal 3.70-11.00 [facility] Comment on above: Order Comment: Speci men Type: BLOOD SPECIMENOrdering Facility: [facility] Address: [place] [id number] Performed By: #### 5 8410-2 ####[facility]ATORYCLIA [id number] [place] [address] [place] CONSULT PROGon 07-22-2025 CONSULT PROG HNO ID: [id number] Author: JOSE SHERMAN PA-C Service: Cardiovascular Medicine Author Type: Physician Director Of Counseling Type: Consult Progress Note Filed: 07/23/2025 09:19 Note Text: [facility] CARDIOLOGY/ELECTROPHYSIOLO GY PROGRESS NOTE CONSULTING SERVICE: Cardiology: Clinical PRIMARY SERVICE: Hospitalist HOSPITAL DAY: #9 SUBJECTIVE INTERVAL HISTORY: Mr. Srini Luis is a 89 year old male with a h/o 4 vessel CABG (ORNELAS-LAD, SVG-RI, SVG-OM, SVG-RCA with TIMMY ligation) in 2020, atrial fibrillation, Biotronik DC PPM placement by Dr. 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 He was admitted for acute on chronic congestive heart failure exacerbation with a LVEF of 31%. Previous echo in 05/2023 with EF of 55%. He was recently admitted for cellulitis. A LHC on 07/17/2025 revealed 3 out of 4 patent bypass grafts with 3 vessel occlusive CAD. 07/21/25: volume overloaded with 2+ bilateral peripheral edema, mild crackles on auscultation, and JVP of 8 cm above the sternal angle with V waves. No acute events overnight. BP stable. On 2L NC. CXR unchanged. Net I/O not documented. Weight 86.9 kg. Potassium 4.8. Magnesium 2.4. Creatinine 1.16. proBNP 7,187. He continued to endorse edema, but denies other ROS including chest discomfort, shortness of breath, orthopnea, nausea, diaphoresis, palpitations, or lightheadedness. IV Lasix 40mg TID as BP allows with goal of 1-2 liters lost per day. His persistently low BP had limited diuresis/GDMT. Re-attempt to resume GDMT when euvolemic with MRA, then ACEI/ARB/ARNI, and BB last. Aldactone 12.5mg to start 07/22. Possible DCCV when euvolemic vs outpatient. 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 07/22/2025: No acute overnight events. RN reports inconsistent collection of urine output, thus I/Os remain inaccurate, although patient is voiding/incontinent. AF with BBB on tele per RN. No c/o chest pain, palpitations. Notes dyspnea at times and now left hand edema, but right hand edema better. Patient requesting to ambulate. Afternoon dose of IV Lasix held by RN due to hypotension that is reportedly asymptomatic. HANDH: 10.1/31.2, K of 4.2, BUN and Creat of 34 and 1.19, previously 33 and 1.16. SBP 93/50. BNP 7187 07/21 vs 17,919 on 07/13, TSH is elevated at 9.368 on Synthroid. CXR 07/21 with no significant change with low lung volumes and hypoventilatory changes at bases. Fluid balance: 07/20: +1234mL 07/21: +1136mL 07/22: +480mL OBJECTIVE MEDICATIONS: Current Facility-Administered Medications Medication Dose Route Frequency NaCl 0.9% iv flush bag 20 mL INTRAVENOUS PRN aluminum-magnesium hydroxide-simethicone 200-200-20 mg/5 mL 30 mL 30 mL ORAL DAILY PRN ondansetron 4 mg tab(s) (ZOFRAN) 4 mg ORAL q 6 H PRN Or ondansetron (PF) 4 mg injection (ZOFRAN) 4 mg INTRAVENOUS q 6 H PRN polyethylene glycol 3350 17 g packet 17 g ORAL DAILY PRN acetaminophen 650 mg tab(s) (TYLENOL) 650 mg ORAL q 6 H PRN HYDROcodone 5 mg - acetaminophen 325 mg tablet (NORCO) 1 tablet ORAL q [address] 40 mg tab(s) (PROTONIX) 40 mg ORAL DAILY (6 AM) multivitamin-ferrous fumarate-folic acid 1 tablet (CENTRUM) 1 tablet ORAL DAILY cyanocobalamin 1,000 mcg tab(s) (VITAMIN B-12) 1,000 mcg ORAL DAILY folic acid 1 mg tab(s) 1 mg ORAL DAILY atorvastatin 20 mg tab(s) (LIPITOR) 20 mg ORAL DAILY levothyroxine 100 mcg tab(s) (SYNTHROID) 100 mcg ORAL DAILY aspirin 81 mg chewable tab(s) 81 mg ORAL DAILY miconazole 2 % 1 application topical powder 1 application TOPICAL BID nitroglycerin sublingual 0.4 mg tab(s) (NITROQUICK) 0.4 mg SUBLINGUAL q 5 MIN PRN empagliflozin 10 mg tab(s) (JARDIANCE) 10 mg ORAL DAILY melatonin 6 mg tab(s) 6 mg ORAL AT BEDTIME PRN menthol 4 % topical gel (BIOFREEZE) TOPICAL TID PRN furosemide 40 mg injection (LASIX) 40 mg INTRAVENOUS TID rivaroxaban 20 mg tab(s) (XARELTO) 20 mg ORAL DAILY wDINNER [START ON 07/23/2025] spironolactone 12.5 mg tab(s) (ALDACTONE) 12.5 mg ORAL DAILY PHYSICAL EXAM: 07/22/25 0745 07/22/25 1139 07/22/25 1500 07/22/25 1544 BP: 124/69 107/60 93/50 93/50 Pulse: 77 88 83 Resp: 20 16 16 Temp: 36.3 ?C (97.4 ?F) 37 ?C (98.6 ?F) 36.4 ?C (97.5 ?F) TempSrc: Oral Oral Oral SpO2: 98% 94% 92% Weight: Height: Physical Exam General: Older adult male sitting up in the bedside chair in [facility] on room air with family at bedside. Neuro/psych: Alert. Oriented x 3. Pleasant. Cooperative. Fair historian, but seems to get confused in the midst of discussion. 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 [facility] HNO ID: [id number] Author: EPHRAIM MARRERO RT(R) Service: Radiology Author Type: Technologist Type: Allied Health Filed: 07/21/2025 14:06 Note Text: -- Summary: RAD EXAM -- Radiology Service Progress Note PATIENT NAME: Srini Luis DATE OF SERVICE: July 21, 2025 TIME: 2:06 PM PATIENT IDENTITY VERIFICATION COMPLETED USING TWO (2) IDENTIFIERS: Name and Date of confirmed by patient verbally and Name and Date of confirmed by identification band. FALL SCREENING: Has the patient had 2 falls in the last year or 1 fall with injury or currently using an Ambulatory Assistive Device (Walker, Cane, Wheelchair, Crutches, etc.)? Inpatient: Screened on floor PATIENT GENDER DATA: Assigned male at PATIENT RELEVANT IMPLANT DATA REVIEWED: Not Applicable PATIENT PRESENTS WITH AN IMPLANTABLE OR ATTACHED CUPOLA OPERATOR: N/A RADIOLOGY DEPARTMENT: General X-ray: Exam(s) Completed: Chest X-Ray PERIPHERAL IV DATA: Not applicable SIGNED BY: Ephraim Marrero, RT(R) July 21, 2025 2:06 PM Normal [facility] Basic metabolic 2000 panelon 07-21-2025 Anion gap [Moles/Vol] 8 mmol/L Normal 5-16 [facility] Comment on above: Order Comment: Speci men Type: BLOOD SPECIMENOrdering Facility: [facility] Address: [address] [place] [address] Performed By: #### 2 4321-2, 36599-9 ####[facility]ORATORYCLIA [id number] [place] [address] [place] Calcium [Mass/Vol] 8.7 mg/dL Normal 8.5-10.5 [facility] Comment on above: Order Comment: Speci men Type: BLOOD SPECIMENOrdering Facility: [facility] Address: [address] [place] [address] Performed By: #### 2 4321-2, 50431-9 ####[facility]ORATORYCLIA [id number] [place] [id number] [place] Chloride [Moles/Vol] 98 mmol/L Normal 98-107 [facility] Comment on above: Order Comment: Speci men Type: BLOOD SPECIMENOrdering Facility: [facility] Address: [address] [place] [address] Performed By: #### 2 4321-2, 61491-9 ####[facility]ATORYCLIA [id number] [place] [address] [place] CO2 [Moles/Vol] 34 mmol/L High 21-32 [facility] Comment on above: Order Comment: Speci men Type: BLOOD SPECIMENOrdering Facility: [facility] Address: [address] [place] [address] Performed By: #### 2 4321-2, 96916-7 ####[facility]ATORYCLIA [id number] [address] [place] Creatinine [Mass/Vol] 1.16 mg/dL Normal 0.50-1.40 [facility] Comment on above: Order Comment: Speci men Type: BLOOD SPECIMENOrdering Facility: [facility] Address: [address] [place] [address] Result Comment: Kierra ents receiving either N-Acetylcysteine (NAC) or Metamizole prior to venipuncture, may have falsely depressed results. Performed By: #### 2 4321-2, 24766-2 ####[facility]ATORYCLIA [id number] [place] [address] [place] eGFRcr SerPlBld CKD-EPI 2020 60 mL/min/1.73m??? Normal >=60 [facility] Comment on above: Order Comment: Speci men Type: BLOOD SPECIMENOrdering Facility: [facility] Address: [address] [place] [address] Result Comment: Concepción mated Glomerular Filtration Rate [...] reflect actual GFR. Performed By: #### 2 4321-2, 24957-4 ####[facility]ATORYCLIA [id number] [place] [id number] [place] Glucose [Mass/Vol] 101 mg/dL High 70-100 [facility] Comment on above: Order Comment: Elfego gilbert Type: BLOOD SPECIMENOrdering Facility: [facility] Address: [address] [place] [address] Result Comment: The [place] Diabetes Association (ADA) provides guidance for cutoff values for fasting glucose and random glucose. The ADA defines fasting as no caloric intake for at least 8 hours. Fasting plasma glucose results between 100 to 125 mg/dL indicate increased risk for diabetes (prediabetes). Fasting plasma glucose results greater than or equal to 126 mg/dL meet the criteria for diagnosis of diabetes. In the absence of unequivocal hyperglycemia, results should be confirmed by repeat testing. In a patient with classic symptoms of hyperglycemia or hyperglycemic crisis, random plasma glucose results greater than or equal to 200 mg/dL meet the criteria for diagnosis of diabetes. Reference: Standards of Medical Care in Diabetes 2016, [place] Diabetes Association. Diabetes Care. 2016.39(Suppl 1). Results may be falsely elevated after the administration of Sulfapyridine. Results may be falsely depressed after the administration of Sulfasalazine. Performed By: #### 2 4321-2, 71512-0 ####[facility]ATORYCLIA [id number] [place] [address] [place] Potassium [Moles/Vol] 4.8 mmol/L Normal 3.5-5.1 [facility] Comment on above: Order Comment: Elfego gilbert Type: BLOOD SPECIMENOrdering Facility: [facility] Address: [address] [place] [address] Performed By: #### 2 4321-2, 11211-8 ####[facility]ORATORYCLIA [id number] [place] [id number] [facility] Sodium [Moles/Vol] 140 mmol/L Normal 136-145 [facility] Comment on above: Order Comment: Speci men Type: BLOOD SPECIMENOrdering Facility: [facility] Address: [address] [place] [address] Performed By: #### 2 4321-2, 24223-5 ####[facility]ORATORYCLIA [id number] [place] [id number] [place] [facility] Urea nitrogen [Mass/Vol] 33 mg/dL High 7- [facility] Comment on above: Order Comment: Speci men Type: BLOOD SPECIMENOrdering Facility: [facility] Address: [address] [place] [address] Performed By: #### 2 4321-2, 92438-6 ####[facility]ATORYCLIA [id number] [address] CBC panel Auto (Bld)on 07-21 Erythrocyte distribution width (RBC) [Ratio] 24.5 % High 11.5-15.0 [facility] Comment on above: Order Comment: Speci men Type: BLOOD SPECIMENOrdering Facility: [facility] Address: [address] [place] [address] Performed By: #### 5 8410-2 ####[facility]ATORYCLIA [id number] [address] Hematocrit (Bld) [Volume fraction] 33.2 % Low 39.0-51.0 [facility] Comment on above: Order Comment: Speci men Type: BLOOD SPECIMENOrdering Facility: [facility] Address: [address] [place] [address] [place] [address] Performed By: #### 5 8410-2 ####[facility]ATORYCLIA [id number] [address] Hemoglobin (Bld) [Mass/Vol] 10.6 g/dL Low 13.0-17.0 [facility] Comment on above: Order Comment: Speci men Type: BLOOD SPECIMENOrdering Facility: [facility] Address: [address] [place] [address] Performed By: #### 5 8410-2 ####[facility]ATORYCLIA [id number] [place] [address] [place] MCH (RBC) [Entitic mass] 35.3 pg High 26.0-34.0 [facility] Comment on above: Order Comment: Speci men Type: BLOOD SPECIMENOrdering Facility: [facility] Address: [address] [place] [address] Performed By: #### 5 8410-2 ####[facility]ATORYCLIA [id number] [address] [place] MCHC (RBC) [Mass/Vol] 31.9 g/dL Normal 30.5-36.0 [facility] Comment on above: Order Comment: Speci men Type: BLOOD SPECIMENOrdering Facility: [facility] Address: [address] [place] [address] Performed By: #### 5 8410-2 ####[facility]ATORYCLIA [id number] [address] [place] MCV (RBC) [Entitic vol] 110.7 fL High 80.0-100.0 [facility] Comment on above: Order Comment: Speci men Type: BLOOD SPECIMENOrdering Facility: [facility] Address: [address] [place] [address] Performed By: #### 5 8410-2 ####[facility]ATORYCLIA [id number] [address] [place] Nucleated RBC (Bld) [#/Vol] 0.04 10*3/uL High <0.01 [facility] Comment on above: Order Comment: Speci men Type: BLOOD SPECIMENOrdering Facility: [facility] Address: [address] [place] [address] Performed By: #### 5 8410-2 ####[facility]ORATORYCLIA [id number] [place] [id number] [place] Platelet mean volume (Bld) [Entitic vol] 11.6 fL Normal 9.0-12.7 [facility] Comment on above: Order Comment: Speci men Type: BLOOD SPECIMENOrdering Facility: [facility] Address: [address] [place] [address] Performed By: #### 5 8410-2 ####[facility]ORATORYCLIA [id number] [place] [id number] [place] Platelets (Bld) [#/Vol] 208 10*3/uL Normal 150-400 [facility] Comment on above: Order Comment: Speci men Type: BLOOD SPECIMENOrdering Facility: [facility] Address: [address] [place] [address] Performed By: #### 5 8410-2 ####[facility]ORATORYCLIA [id number] [place] [address] [place] RBC (Bld) [#/Vol] 3.00 10*6/uL Low 4.20-6.00 [facility] Comment on above: Order Comment: Speci men Type: BLOOD SPECIMENOrdering Facility: [facility] Address: [facility] [place] [address] Performed By: #### 5 8410-2 ####[facility]ORATORYCLIA [id number] [place] [id number] [place] WBC (Bld) [#/Vol] 7.04 10*3/uL Normal 3.70-11.00 [facility] Comment on above: Order Comment: Speci men Type: BLOOD SPECIMENOrdering Facility: [facility] Address: [facility] [place] [address] Performed By: #### 5 8410-2 ####[facility]ORATORYCLIA [id number] [place] [id number] [facility] [place] CONSULT PROGon 07-21-2025 CONSULT PROG HNO ID: [id number] Author: OSCAR GUTIERREZ MD Service: Cardiovascular Medicine Author Type: Physician Type: Consult Progress Note Filed: 07/21/2025 19:08 Note Text: CARDIOLOGY PROGRESS NOTE Cardiology attending: Dr. Gutierrez Reason for initial consult: AECHF INTERVAL HPI: Mr. 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 He was recently admitted with cellulitis. Patient is currently admitted for acute on chronic heart failure. No acute events overnight. BP stable. On 2L NC. CXR unchanged. Net I/O not documented. Weight 86.9 kg. Potassium 4.8. Magnesium 2.4. Creatinine 1.16. proBNP 7,187. INTERVAL ROS: Patient seen with family at bedside. He continues to endorse edema but denies other ROS including chest discomfort, shortness of breath, orthopnea, nausea, diaphoresis, palpitations, or lightheadedness. Discussed plan of care with patient, family, and primary team. MEDICATIONS: Current Facility-Administered Medications Medication Dose Route Frequency NaCl 0.9% iv flush bag 20 mL INTRAVENOUS PRN aluminum-magnesium hydroxide-simethicone 200-200-20 mg/5 mL 30 mL 30 mL ORAL DAILY PRN ondansetron 4 mg tab(s) (ZOFRAN) 4 mg ORAL q 6 H PRN Or ondansetron (PF) 4 mg injection (ZOFRAN) 4 mg INTRAVENOUS q 6 H PRN polyethylene glycol 3350 17 g packet 17 g ORAL DAILY PRN acetaminophen 650 mg tab(s) (TYLENOL) 650 mg ORAL q 6 H PRN HYDROcodone 5 mg - acetaminophen 325 mg tablet (NORCO) 1 tablet ORAL q [address] mg tab(s) (PROTONIX) 40 mg ORAL DAILY (6 AM) multivitamin-ferrous fumarate-folic acid 1 tablet (CENTRUM) 1 tablet ORAL DAILY cyanocobalamin 1,000 mcg tab(s) (VITAMIN B-12) 1,000 mcg ORAL DAILY folic acid 1 mg tab(s) 1 mg ORAL DAILY atorvastatin 20 mg tab(s) (LIPITOR) 20 mg ORAL DAILY levothyroxine 100 mcg tab(s) (SYNTHROID) 100 mcg ORAL DAILY aspirin 81 mg chewable tab(s) 81 mg ORAL DAILY miconazole 2 % 1 application topical powder 1 application TOPICAL BID nitroglycerin sublingual 0.4 mg tab(s) (NITROQUICK) 0.4 mg SUBLINGUAL q 5 MIN PRN empagliflozin 10 mg tab(s) (JARDIANCE) 10 mg ORAL DAILY melatonin 6 mg tab(s) 6 mg ORAL AT BEDTIME PRN menthol 4 % topical gel (BIOFREEZE) TOPICAL TID PRN furosemide 40 mg injection (LASIX) 40 mg INTRAVENOUS TID rivaroxaban 20 mg tab(s) (XARELTO) 20 mg ORAL DAILY wDINNER Vital Signs 07/21/25 0445 07/21/25 0823 07/21/25 1145 07/21/25 1218 BP: 112/57 84/52 92/58 Pulse: 77 91 Resp: 16 20 Temp: 36.9 ?C (98.5 ?F) 37.1 ?C (98.7 ?F) TempSrc: Oral Axillary SpO2: 98% 97% Weight: 86.9 kg (191 lb 9.3 oz) Height: PHYSICAL EXAM: General: AANDOx3, no acute distress, sitting in chair HEENT: normocephalic, PERRL, anicteric sclera, mucus membranes moist Neck: normal appearance, no JVD Respiratory: normal effort on 2L NC, lungs clear to auscultation bilaterally, no wheezing, rhonchi, or rales Cardiac: irregular without murmurs, rubs, or gallops Abdomen: normoactive bowel sounds, nontender, no distention or palpable masses Extremities: cool extremities, peripheral pulses intact, 3-4+ pitting edema bilateral lower extremities, pitting edema right upper extremity and left hand Telemetry: AF, 80-90s Intake/Output: Intake/Output Summary (Last 24 hours) at 07/21/2025 1226 Last data filed at 07/21/2025 0914 Gross per 24 hour Intake 1350 ml Output -- Net 1350 ml Labs: Recent Labs 07/21/25 0644 07/20/25 0441 07/19/25 0425 WBC 7.04 10.85 6.75 HB 10.6* 11.3* 10.5* HCT 33.2* 35.1* 32.6* PLT 208 178 152 Recent Labs 07/21/25 0644 07/20/25 1133 07/19/25 1136 NA 140 139 140 K 4.8 5.0 4.4 CHLOR 98 97* 99 CO2 34* 36* 28 BUN 33* 31* 21 CREAT 1.16 1.11 1.00 GLUC 101* 107* 116* Magnesium Date Value Ref Range Status 07/20/2025 2.4 1.6 - 2.6 mg/dL Final TSH 9.368 07/14/2025 Triglyceride 37 07/14/2025 HDL Cholesterol 49 07/14/2025 LDL Chol, Swiss 28 07/14/2025 Cholesterol, Total 88 07/14/2025 Lab Results Component Value Date HSTROP 64.8 (H) 07/14/2025 HSTROP 90.6 (H) 07/14/2025 HSTROP 77.7 (H) 07/13/2025 PBNP 17,919 (H) 07/13/2025 Echo 07/14/2025: Impression CONCLUSIONS: - Technically difficult exam due to suboptimal positioning. - Exam indication: Re-evaluation of known heart failure with a change in clinical status without change in med/diet - The left ventricle is normal in size. There is mild concentric left ventricular hypertrophy. Left ventricular systolic function is moderate-severely decreased. EF = 31 ? 5% (2D biplane) Definity contrast used for endocardial border detection. Left v (more content not included)... [facility] Natriuretic peptide.B prohormone N-Terminal [Mass/Vol] 7187 pg/mL High <450 [facility] Comment on above: Order Comment: Speci men Type: BLOOD SPECIMENOrdering Facility: [facility] Address: [address] [place] [address] Result Comment: NT-p roBNP results of less than 300 pg/mL likely rules out acute congestive heart failure with 99% predictive value. NOTE: These cutoff points are suggested for ACUTE CHF DIAGNOSIS only Less than 50 years\X09\ Greater than 450 pg/mL 50 - 75 years\X09\\X09\ Greater than 900 pg/mL Greater than 75 years\X09\ Greater than 1800 pg/mL Performed By: #### 2 4321-2, 59085-6 ####[facility] LABORATORYCLIA [id number] [place] [address] [facility] THERAPY NTon 07-21-2025 THERAPY NT HNO ID: [id number] Author: NAVIN BIGGS, OTR/L Service: ? Author Type: Occupational Therapist Type: Therapy (PT/OT/Speech/Resp) Filed: 07/21/2025 09:54 Note Text: Occupational Therapy Evaluation Summary SERVICE DATE: 07/21/2025 SERVICE TIME: 901 to 927 ROOM: [place] [address] OT 6 Clicks Score: 15 DISCHARGE RECOMMENDATIONS Subacute/SNF Recommended Discharge Disposition Comments: Patient requiring increased assist for ADLs and mobility. Pt would benefit from continued OT services to increase safety and independence with ADLs, decrease risk for falls and improve functional activity tolerance. Recommended Discharge Disposition Due to: Patient requires daily (5x/week) skilled therapy at next level of care., Functional deficits requiring ongoing therapy service prior to discharge home., ADL impairment, Functional status decline, Requires multiple therapy disciplines Anticipated Discharge Needs: Physical Assist at Home, Supervision at Home Physical Assist at Home for: Ambulation, Cleaning, Laundry, Meals, Safety, Self Care, Shopping, Transportation Supervision at Home due to: Decreased safety awareness ASSESSMENT Response to Therapy Interventions: Good Participation in Activities, Low Activity Tolerance, Requires Additional Time to Complete Activities, Needs Frequent Redirection or Reinstruction Pt tolerated OT session fairly. Limited by low activity tolerance, generalized weakness, decreased insight into deficits, impaired STM and minimal blance deficits. Pt requires min cues for safety, initiation, sequencing and problem solving. Pt would benefit from continued OT services. PRECAUTIONS Bed/Chair Alarm, Fall Risk, Lines/Tubes/Drains 2L NC CURRENT HOSPITAL COURSE Pt presents to [facility] with complaints of extremity edema and after a hearth cath was found to have decreased EF of 31%. Admitted with dx of congestive heart failure. LHC done 07/17. Cardio following. Relevant Past Medical History: chronic atrial fibrillation on Xarelto, CHF, hypothyroidism, hypercholesterolemia, CML and chronic venous stasis HOME LIVING Patient Lives With: Self/Alone, Other: See Comment Comments: lives in independent living. Assistance Available: Other: See Comment, PRN Comments: lives in independent living and can have help in emergencies but does not have consistent help. Entry To Home: No Stairs, Elevator Number Of Stairs To Bed/Bath: 0 Stairs to Bed/Bath with: No Rail Tub/Shower Type: walk in shower with grab bars and shower chair. Laundry: in apartment reports recently having [employer] complete last 2 weeks prior to this pt was able to complete himself Equipment Owned: Cane, Walker- Wheeled, Rollator, Scooter- Power, Shower Chair, Hand Held Shower PRIOR FUNCTIONAL LEVEL Within Functional Limits, Required Assistance, History of Falls Assistance Required With: Shopping, Transportation, Self Care, Meals Pt reports being mod I with mobility at baseline using a FWW. Pt reports that he needs assist with transportation and putting on compression stockings. Pt reports he is able to bath on his own and cook and clean. Recent hired [employer] to assist with IADLs. Baseline Cognition: Oriented to self, Oriented to place, Oriented to time, Oriented to situation SUBJECTIVE pt agreeable to OT eval COGNITION Orientation Deficits: Not oriented to Time, Other: See Comment (did not know date/day of week or year, but did know month. thought it was 2025. Provided reorientation training.) Responsiveness: Alert, Awake Memory Deficits: Short Term Executive Function Deficits: Safety Awareness, Problem Solving, Insight to Deficits, Judgement THERAPY DIAGNOSIS Decreased activities of daily living (ADL), Reduced mobility-other, Muscle Weakness (generalized) TREATMENT INTERVENTIONS Evaluation, Self Fdc Management (27685) Timed Code Treatment (minutes): 11 Skilled Treatment Time (minutes): 26 TRAINING AND EDUCATION PROVIDED Activity Adaptation/Compensatory Strategies, Assistive Device Use, Benefits of In-Hospital Mobility, Command Following, Cognitive Skills, Discharge Planning, Edema Management, Energy Conservation, Expected Functional Level, Functional Mobility Involving ADLs, Grooming Tasks, Insight into Deficits, Lower Extremity Dressing, Memory/Attention, Orientation, Role of Occupational Therapy, Safety/Judgment, Sitting Balance to Improve Jamul with ADLs/Self-Care, Standing Balance to Improve Jamul with ADLs/Self-Care, Transfer - Sit to Stand, Upper Extremity Bathing, Upper Extremity Dressing, Lower Extremity Bathing THERAPEUTIC SKILLS USED Activity Dosing, Assessment of Tolerance Including Vitals Response to Activity, Cues for Sequencing/Proper Technique for Activity, Cuing Tactile, Cuing Verbal, Cuing Visual, Mirroring, Movement Facilitation, Physical Assist, Task Analysis Learning FUNCTIONAL STATUS Activities of Daily Living Assist Level Additional Informa (more content not included)... Normal [facility] XR CHEST 1V FRONTALon 2024 XR CHEST 1V FRONTAL * * *Final Report* * * DATE OF EXAM: Jul 21 2025 2:06PM RHX 5290 - XR CHEST 1V FRONTAL / PROCEDURE REASON: Other * * * * Physician Interpretation * * * * EXAMINATION: CHEST RADIOGRAPH (SINGLE VIEW AP OR PA) CLINICAL HISTORY: Other, coarse breath sounds MQ: XC1_5 Comparison: 07/13/2025 RESULT: Lines, tubes, and devices: Pacemaker leads are similarly positioned. Lungs and pleura: Low lung volumes with likely hypoventilatory changes at the lung bases. Vascularity is felt to be within normal limits given the technique. No pneumothorax or visible pleural effusion. Cardiomediastinal silhouette: Cardiac and mediastinal contours are stable. Other: . IMPRESSION: No significant change with low lung volumes and likely hypoventilatory changes at the bases. Talcer: BERNARDA Transcribe Date/Time: Jul 21 2025 3:35P Dictated by : SIDRA PERSAUD MD This examination was interpreted and the report reviewed and electronically signed by: SIDRA PERSAUD MD on Jul 21 2025 3:36PM EST [id number] Normal [facility] Basic metabolic 2000 panelon 07-20-2025 Anion gap [Moles/Vol] 6 mmol/L Normal 5-16 [facility] Comment on above: Order Comment: Speci men Type: BLOOD SPECIMENOrdering Facility: [facility] Address: [address] [place] [address] Performed By: #### 2 4321-2, 43665-1 ####[facility]ORATORYCLIA [id number] [place] [id number] [place] Calcium [Mass/Vol] 9.0 mg/dL Normal 8.5-10.5 [facility] Comment on above: Order Comment: Speci men Type: BLOOD SPECIMENOrdering Facility: [facility] Address: [address] [place] [address] Performed By: #### 2 4321-2, ####[facility]ORATORYCLIA [id number] [place] [id number] [place] Chloride [Moles/Vol] 97 mmol/L Low 98-107 [facility] Comment on above: Order Comment: Speci men Type: BLOOD SPECIMENOrdering Facility: [facility] Address: [address] [place] [address] Performed By: #### 2 4321-2, ####[facility]ORATORYCLIA [id number] [place] [id number] [place] CO2 [Moles/Vol] 36 mmol/L High 21-32 [facility] Comment on above: Order Comment: Speci men Type: BLOOD SPECIMENOrdering Facility: [facility] Address: [address] [place] [address] Performed By: #### 2 4321-2, ####[facility]ORATORYCLIA [id number] [place] [id number] [place] Creatinine [Mass/Vol] 1.11 mg/dL Normal 0.50-1.40 [facility] Comment on above: Order Comment: Speci men Type: BLOOD SPECIMENOrdering Facility: [facility] Address: [address] [place] [address] Result Comment: Kierra ents receiving either N-Acetylcysteine (NAC) or Metamizole prior to venipuncture, may have falsely depressed results. Performed By: #### 2 4321-2, ####[facility]ATORYCLIA [id number] [place] [id number] [place] eGFRcr SerPlBld CKD-EPI 2020 63 mL/min/1.73m??? Normal >=60 [facility] Comment on above: Order Comment: Elfego gilbert Type: BLOOD SPECIMENOrdering Facility: [facility] Address: [address] [place] [address] Result Comment: Concepción mated Glomerular Filtration Rate [...] reflect actual GFR. Performed By: #### 2 4321-2, 86000-9 ####[facility]ATORYCLIA [id number] [place] [id number] [place] Glucose [Mass/Vol] 107 mg/dL High 70-100 [facility] Comment on above: Order Comment: Elfego gilbert Type: BLOOD SPECIMENOrdering Facility: [facility] Address: [address] [place] [address] Result Comment: The [place] Diabetes Association (ADA) provides guidance for cutoff values for fasting glucose and random glucose. The ADA defines fasting as no caloric intake for at least 8 hours. Fasting plasma glucose results between 100 to 125 mg/dL indicate increased risk for diabetes (prediabetes). Fasting plasma glucose results greater than or equal to 126 mg/dL meet the criteria for diagnosis of diabetes. In the absence of unequivocal hyperglycemia, results should be confirmed by repeat testing. In a patient with classic symptoms of hyperglycemia or hyperglycemic crisis, random plasma glucose results greater than or equal to 200 mg/dL meet the criteria for diagnosis of diabetes. Reference: Standards of Medical Care in Diabetes 2016, [place] Diabetes Association. Diabetes Care. 2016.39(Suppl 1). Results may be falsely elevated after the administration of Sulfapyridine. Results may be falsely depressed after the administration of Sulfasalazine. Performed By: #### 2 4321-2, 90840-7 ####[facility]ORATORYCLIA [id number] [place] [id number] [place] Potassium [Moles/Vol] 5.0 mmol/L Normal 3.5-5.1 [facility] Comment on above: Order Comment: Speci men Type: BLOOD SPECIMENOrdering Facility: [facility] Address: [address] [place] [address] Performed By: #### 2 4321-2, ####[facility]ORATORYCLIA [id number] [place] [id number] [facility] Sodium [Moles/Vol] 139 mmol/L Normal 136-145 [facility] Comment on above: Order Comment: Speci men Type: BLOOD SPECIMENOrdering Facility: [facility] Address: [address] [place] [address] Performed By: #### 2 4321-2, ####[facility]ORATORYCLIA [id number] [place] [id number] [place] Urea nitrogen [Mass/Vol] 31 mg/dL High 7-26 [facility] Comment on above: Order Comment: Speci men Type: BLOOD SPECIMENOrdering Facility: [facility] Address: [address] [place] [address] Performed By: #### 2 4321-2, ####[facility]ORATORYCLIA [id number] [place] [address] [place] CBC panel Auto (Bld)on 07-20 Erythrocyte distribution width (RBC) [Ratio] 24.5 % High 11.5-15.0 [facility] Comment on above: Order Comment: Speci men Type: BLOOD SPECIMENOrdering Facility: [facility] Address: [address] [place] [address] Performed By: #### 5 8410-2 ####[facility]ORATORYCLIA [id number] [place] [id number] [place] Hematocrit (Bld) [Volume fraction] 35.1 % Low 39.0-51.0 [facility] Comment on above: Order Comment: Speci men Type: BLOOD SPECIMENOrdering Facility: [facility] Address: [address] [place] [address] Performed By: #### 5 8410-2 ####[facility]ORATORYCLIA [id number] [place] [address] [place] Hemoglobin (Bld) [Mass/Vol] 11.3 g/dL Low 13.0-17.0 [facility] Comment on above: Order Comment: Speci men Type: BLOOD SPECIMENOrdering Facility: [facility] Address: [address] [place] [address] Performed By: #### 5 8410-2 ####[facility]ORATORYCLIA [id number] [place] [address] [place] MCH (RBC) [Entitic mass] 35.5 pg High 26.0-34.0 [facility] Comment on above: Order Comment: Speci men Type: BLOOD SPECIMENOrdering Facility: [facility] Address: [address] [place] [address] Performed By: #### 5 8410-2 ####[facility]ORATORYCLIA [id number] [address] [place] MCHC (RBC) [Mass/Vol] 32.2 g/dL Normal 30.5-36.0 [facility] Comment on above: Order Comment: Speci men Type: BLOOD SPECIMENOrdering Facility: [facility] Address: [address] [place] [address] Performed By: #### 5 8410-2 ####[facility]ORATORYCLIA [id number] [address] [place] MCV (RBC) [Entitic vol] 110.4 fL High 80.0-100.0 [facility] Comment on above: Order Comment: Speci men Type: BLOOD SPECIMENOrdering Facility: [facility] Address: [address] [place] [address] Performed By: #### 5 8410-2 ####[facility] LABORATORYIA [id number] [address] [place] Nucleated RBC (Bld) [#/Vol] 0.03 10*3/uL High <0.01 [facility] Comment on above: Order Comment: Speci men Type: BLOOD SPECIMENOrdering Facility: [facility] Address: [address] [place] [id number] Performed By: #### 5 8410-2 ####[facility]ORATORYCLIA [id number] [place] [id number] [place] Platelet mean volume (Bld) [Entitic vol] 10.8 fL Normal 9.0-12.7 [facility] Comment on above: Order Comment: Speci men Type: BLOOD SPECIMENOrdering Facility: [facility] Address: [address] [place] [address] Performed By: #### 5 8410-2 ####[facility]ORATORYCLIA [id number] [place] [id number] [place] [facility] [place] Platelets (Bld) [#/Vol] 178 10*3/uL Normal 150-400 [facility] Comment on above: Order Comment: Speci men Type: BLOOD SPECIMENOrdering Facility: [facility] Address: [address] [place] [address] Performed By: #### 5 8410-2 ####[facility]ORATORYCLIA [id number] [place] [id number] [place] RBC (Bld) [#/Vol] 3.18 10*6/uL Low 4.20-6.00 [facility] Comment on above: Order Comment: Speci men Type: BLOOD SPECIMENOrdering Facility: [facility] Address: [address] [place] [address] Performed By: #### 5 8410-2 ####[facility]ATORYCLIA [id number] [place] [id number] [place] WBC (Bld) [#/Vol] 10.85 10*3/uL Normal 3.70-11.00 [facility] Comment on above: Order Comment: Speci men Type: BLOOD SPECIMENOrdering Facility: [facility] Address: [address] [place] [address] Performed By: #### 5 8410-2 ####[facility]ORATORYCLIA [id number] [place] [id number] [place] CONSULT PROGon 07-20-2025 CONSULT PROG HNO ID: [id number] Author: ALESHA SANDHU PA-C Service: Cardiovascular Medicine Author Type: Physician Director Of Counseling Type: Consult Progress Note Filed: 07/20/2025 17:28 Note Text: CARDIOLOGY PROGRESS NOTE Cardiology attending: Dr. Monaco Reason for initial consult: AECHF INTERVAL HPI: Mr. 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 He was recently admitted with cellulitis. Patient is currently admitted for acute on chronic heart failure. BP soft after Entresto yesterday, since stopped. BP stable today. Net I/O + 239 mL yesterday, -4.3 L since admission. Potassium 5.0. Magnesium 2.4. Creatinine 1.11. INTERVAL ROS: Patient seen with family at bedside. He reports intermittent shortness of breath, coughing, and edema. He denies chest discomfort, nausea, diaphoresis, palpitations, or lightheadedness. Discussed plan of care with patient, family, and primary team. MEDICATIONS: Current Facility-Administered Medications Medication Dose Route Frequency NaCl 0.9% iv flush bag 20 mL INTRAVENOUS PRN aluminum-magnesium hydroxide-simethicone 200-200-20 mg/5 mL 30 mL 30 mL ORAL DAILY PRN ondansetron 4 mg tab(s) (ZOFRAN) 4 mg ORAL q 6 H PRN Or ondansetron (PF) 4 mg injection (ZOFRAN) 4 mg INTRAVENOUS q 6 H PRN polyethylene glycol 3350 17 g packet 17 g ORAL DAILY PRN acetaminophen 650 mg tab(s) (TYLENOL) 650 mg ORAL q 6 H PRN HYDROcodone 5 mg - acetaminophen 325 mg tablet (NORCO) 1 tablet ORAL q [address] 40 mg tab(s) (PROTONIX) 40 mg ORAL DAILY (6 AM) multivitamin-ferrous fumarate-folic acid 1 tablet (CENTRUM) 1 tablet ORAL DAILY cyanocobalamin 1,000 mcg tab(s) (VITAMIN B-12) 1,000 mcg ORAL DAILY folic acid 1 mg tab(s) 1 mg ORAL DAILY atorvastatin 20 mg tab(s) (LIPITOR) 20 mg ORAL DAILY levothyroxine 100 mcg tab(s) (SYNTHROID) 100 mcg ORAL DAILY aspirin 81 mg chewable tab(s) 81 mg ORAL DAILY miconazole 2 % 1 application topical powder 1 application TOPICAL BID nitroglycerin sublingual 0.4 mg tab(s) (NITROQUICK) 0.4 mg SUBLINGUAL q 5 MIN PRN furosemide 40 mg injection (LASIX) 40 mg INTRAVENOUS BID 9a/5p empagliflozin 10 mg tab(s) (JARDIANCE) 10 mg ORAL DAILY heparin 5,000 Units injection 5,000 Units SUBCUTANEOUS q 12 H melatonin 6 mg tab(s) 6 mg ORAL AT BEDTIME PRN menthol 4 % topical gel (BIOFREEZE) TOPICAL TID PRN Vital Signs 07/20/25 0633 07/20/25 0738 07/20/25 1032 07/20/25 1148 BP: 95/58 109/75 109/63 Pulse: 93 70 84 Resp: 22 16 Temp: 36.4 ?C (97.6 ?F) 36.3 ?C (97.4 ?F) 36.6 ?C (97.8 ?F) TempSrc: Oral Oral SpO2: 90% 95% 97% Weight: Height: PHYSICAL EXAM: General: AANDOx3, no acute distress, sitting in chair HEENT: normocephalic, PERRL, anicteric sclera, mucus membranes moist Neck: normal appearance, no JVD Respiratory: normal effort on 2L NC, coarse breath sounds bilaterally, crackles right lung base Cardiac: irregular without murmurs, rubs, or gallops Abdomen: normoactive bowel sounds, nontender, no distention or palpable masses Extremities: cold lower extremities, right upper extremity notably warmer than left with some erythema, bilateral lower extremity pitting edema with chronic skin change Telemetry: AF, rate 80-90s, PVCs Intake/Output: Intake/Output Summary (Last 24 hours) at 07/20/2025 1241 Last data filed at 07/20/2025 0555 Gross per 24 hour Intake 550 ml Output 1 ml Net 549 ml Labs: Recent Labs 07/20/25 0441 07/19/25 0425 07/18/25 0419 WBC 10.85 6.75 7.25 HB 11.3* 10.5* 10.7* HCT 35.1* 32.6* 33.0* PLT 178 152 191 Recent Labs 07/17/25 1339 APTT 118.1* Recent Labs 07/20/25 1133 07/19/25 1136 07/18/25 0419 NA 139 140 139 K 5.0 4.4 4.9 CHLOR 97* 99 99 CO2 36* 28 30 BUN 31* 21 27* CREAT 1.11 1.00 0.99 GLUC 107* 116* 132* Magnesium Date Value Ref Range Status 07/20/2025 2.4 1.6 - 2.6 mg/dL Final TSH 9.368 07/14/2025 Triglyceride 37 07/14/2025 HDL Cholesterol 49 07/14/2025 LDL Chol, Marva 28 07/14/2025 Cholesterol, Total 88 07/14/2025 Lab Results Component Value Date HSTROP 64.8 (H) 07/14/2025 HSTROP 90.6 (H) 07/14/2025 HSTROP 77.7 (H) 07/13/2025 PBNP 17,919 (H) 07/13/2025 Echo 07/14/2025: Impression CONCLUSIONS: - Technically difficult exam due to suboptimal positioning. - Exam indication: Re-evaluation of known heart failure with a change in clinical status without change in med/diet - The left ventricle is normal in size. There is mild concentric left ventricular hypertrophy. Left ventricular systolic function is moderate-severely decreased. EF = 31 ? 5% (2D bipla (more content not included)... Normal [facility] Magnesium SerPl-mCncon 07-20 Magnesium [Mass/Vol] 2.4 mg/dL Normal 1.6-2.6 [facility] Comment on above: Order Comment: Speci men Type: BLOOD SPECIMENOrdering Facility: [facility] Address: [address] [place] [address] Performed By: #### 2 4321-2, ####[facility]ORATORYCLIA [id number] [place] [address] [place] Basic metabolic 2000 panelon 07-19-2025 Anion gap [Moles/Vol] 13 mmol/L Normal 5-16 [facility] Comment on above: Order Comment: Speci men Type: BLOOD SPECIMENOrdering Facility: [facility] Address: [address] [place] [id number] Performed By: #### 2 432-2, ####[facility]ORATORYCLIA [id number] [place] [address] [place] Calcium [Mass/Vol] 8.8 mg/dL Normal 8.5-10.5 [facility] Comment on above: Order Comment: Speci men Type: BLOOD SPECIMENOrdering Facility: [facility] Address: [address] [place], [place] [address] [id number] Performed By: #### 2 4320-12, ####[facility]ORATORYCLIA [id number] [place] [address] [place] Chloride [Moles/Vol] 99 mmol/L Normal 98-107 [facility] Comment on above: Order Comment: Speci men Type: BLOOD SPECIMENOrdering Facility: [facility] Address: [address] [place] [address] Performed By: #### 2 4320-2, ####[facility]ATORYCLIA [id number] [place] [address] [place] CO2 [Moles/Vol] 28 mmol/L Normal 21-32 [facility] Comment on above: Order Comment: Speci men Type: BLOOD SPECIMENOrdering Facility: [facility] Address: [address] [place] [address] Performed By: #### 2 432-2, ####[facility]ORATORYCLIA [id number] [place] [address] [place] Creatinine [Mass/Vol] 1.00 mg/dL Normal 0.50-1.40 [facility] Comment on above: Order Comment: Elfego gilbert Type: BLOOD SPECIMENOrdering Facility: [facility] Address: [address] [place] [id number] Result Comment: Kierra ents receiving either N-Acetylcysteine (NAC) or Metamizole prior to venipuncture, may have falsely depressed results. Performed By: #### 2 4321-2, ####[facility]ORATORYCLIA [id number] [place] [address] [place] eGFRcr SerPlBld CKD-EPI 2020 72 mL/min/1.73m??? Normal >=60 [facility] Comment on above: Order Comment: Elfego gilbert Type: BLOOD SPECIMENOrdering Facility: [facility] Address: [address] [place] [address] Result Comment: Concepción mated Glomerular Filtration Rate [...] reflect actual GFR. Performed By: #### 2 4321-2, ####[facility]ATORYCLIA [id number] [place] [address] [place] Glucose [Mass/Vol] 116 mg/dL High 70-100 [facility] Comment on above: Order Comment: Elfego gilbert Type: BLOOD SPECIMENOrdering Facility: [facility] Address: [address] [place] [address] Result Comment: The [place] Diabetes [employer] (ADA) provides guidance for cutoff values for fasting glucose and random glucose. The ADA defines fasting as no caloric intake for at least 8 hours. Fasting plasma glucose results between 100 to 125 mg/dL indicate increased risk for diabetes (prediabetes). Fasting plasma glucose results greater than or equal to 126 mg/dL meet the criteria for diagnosis of diabetes. In the absence of unequivocal hyperglycemia, results should be confirmed by repeat testing. In a patient with classic symptoms of hyperglycemia or hyperglycemic crisis, random plasma glucose results greater than or equal to 200 mg/dL meet the criteria for diagnosis of diabetes. Reference: Standards of Medical Care in Diabetes 2016, [place] [employer] Association. Diabetes Care. 2016.39(Suppl 1). Results may be falsely elevated after the administration of Sulfapyridine. Results may be falsely depressed after the administration of Sulfasalazine. Performed By: #### 2 432-2, ####[facility]ATORYCLIA [id number] [place] [id number] [place] Potassium [Moles/Vol] 4.4 mmol/L Normal 3.5-5.1 [facility] Comment on above: Order Comment: Speci men Type: BLOOD SPECIMENOrdering Facility: [facility] Address: [address] [place] [address] Performed By: #### 2 4322, ####[facility]ATORYCLIA [id number] [place] [id number] [place] Sodium [Moles/Vol] 140 mmol/L Normal 136-145 [facility] Comment on above: Order Comment: Speci men Type: BLOOD SPECIMENOrdering Facility: [facility] Address: [address] [place] [address] Performed By: #### 2 43211-10, ####[facility]ATORYCLIA [id number] [place] [id number] [place] Urea nitrogen [Mass/Vol] 21 mg/dL Normal 7-26 [facility] Comment on above: Order Comment: Speci men Type: BLOOD SPECIMENOrdering Facility: [facility] Address: [address] [place] [address] Performed By: #### 2 4322, ####[facility]ORYCLIA [id number] [place] [id number] [place] CBC panel Auto (Bld)on 07-19 Erythrocyte distribution width (RBC) [Ratio] 24.4 % High 11.5-15.0 [facility] Comment on above: Order Comment: Speci men Type: BLOOD SPECIMENOrdering Facility: [facility] Address: [address] [place] [address] Performed By: #### 5 8410-2 ####[facility]ATORYCLIA [id number] [address] Hematocrit (Bld) [Volume fraction] 32.6 % Low 39.0-51.0 [facility] Comment on above: Order Comment: Speci men Type: BLOOD SPECIMENOrdering Facility: [facility] Address: [address] [place] [address] Performed By: #### 5 8410-2 ####[facility]ATORYCLIA [id number] [address] [place] Hemoglobin (Bld) [Mass/Vol] 10.5 g/dL Low 13.0-17.0 [facility] Comment on above: Order Comment: Speci men Type: BLOOD SPECIMENOrdering Facility: [facility] Address: [address] [place] [address] Performed By: #### 5 8410-2 ####[facility]ATORYCLIA [id number] [address] [place] MCH (RBC) [Entitic mass] 34.8 pg High 26.0-34.0 [facility] Comment on above: Order Comment: Speci men Type: BLOOD SPECIMENOrdering Facility: [facility] Address: [address] [place] [address] Performed By: #### 5 8410-2 ####[facility]ATORYCLIA [id number] [place] [address] [place] MCHC (RBC) [Mass/Vol] 32.2 g/dL Normal 30.5-36.0 [facility] Comment on above: Order Comment: Speci men Type: BLOOD SPECIMENOrdering Facility: [facility] Address: [address] [place] [address] Performed By: #### 5 8410-2 ####[facility]ATORYCLIA [id number] [place] [address] [place] MCV (RBC) [Entitic vol] 107.9 fL High 80.0-100.0 [facility] Comment on above: Order Comment: Speci men Type: BLOOD SPECIMENOrdering Facility: [facility] Address: [address] [place] [address] Performed By: #### 5 8410-2 ####[facility]ATORYCLIA [id number] [place] [address] [place] Nucleated RBC (Bld) [#/Vol] 0.04 10*3/uL High <0.01 [facility] Comment on above: Order Comment: Speci men Type: BLOOD SPECIMENOrdering Facility: [facility] Address: [address] [place] [address] Performed By: #### 5 8410-2 ####[facility]ATORYCLIA [id number] [address] [place] Platelet mean volume (Bld) [Entitic vol] 12.1 fL Normal 9.0-12.7 [facility] Comment on above: Order Comment: Speci men Type: BLOOD SPECIMENOrdering Facility: [facility] Address: [address] [place] [address] Performed By: #### 5 8410-2 ####[facility]ATORYCLIA [id number] [address] [place] Platelets (Bld) [#/Vol] 152 10*3/uL Normal 150-400 [facility] Comment on above: Order Comment: Speci men Type: BLOOD SPECIMENOrdering Facility: [facility] Address: [address] [place] [address] Result Comment: No c lot detected. Performed By: #### 5 8410-2 ####[facility]ATORYCLIA [id number] [place] [address] [place] RBC (Bld) [#/Vol] 3.02 10*6/uL Low 4.20-6.00 [facility] Comment on above: Order Comment: Speci men Type: BLOOD SPECIMENOrdering Facility: [facility] Address: [address] [place], [place] [address], [place] [address] Performed By: #### 5 8410-2 ####[facility]ATORYCLIA [id number] [place] [id number] [facility] WBC (Bld) [#/Vol] 6.75 10*3/uL Normal 3.70-11.00 [facility] Comment on above: Order Comment: Speci men Type: BLOOD SPECIMENOrdering Facility: [facility] Address: [address] [place] [address] Performed By: #### 5 8410-2 ####[facility]ATORYCLIA [id number] [place] [id number] [facility] CONSULT PROGon 07-19-2025 CONSULT PROG HNO ID: [id number] Author: MINERVA DENSON APRN.PHOTO MASK PATTERN GENERATOR Service: Cardiovascular Medicine Author Type: Nurse Practitioner Type: Consult Progress Note Filed: 07/19/2025 13:50 Note Text: CARDIOLOGY PROGRESS NOTE Cardiology attending: Murphy Reason for initial consult: AECHF INTERVAL HPI: This is an 89-year-old obese male, with a PMH of HTN, HLD, CHB s/p Biotronik dual PPM (2021), CAD s/p CABG x 4 (ORNELAS-LAD, SVG-RI, SVG-OM, SVG-RCA in 2020), CHF, AF s/p ligation TIMMY (2020), thrombus of right IJV (2022), left vertebral artery occlusion (2021), venous stasis bilaterally, CVA (2021), hypothyroidism, myasthenia gravis, and 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 He was recently admitted with cellulitis. Patient is currently admitted for acute on chronic heart failure. -2450 UO/24h SBP 92- 113; HR 60s Na 140 K 4.4 BUN 21 ( 27) Cr 1 (0.99) Hgb 10.5 INTERVAL ROS: Patient seen and examined. He was drowsy, closed his eyes mid conversation and had prolonged expiratory phase, eventually perked up during our interview and discussion with family member at bedside. He denies chest pain, lightheadedness including on standing when doing PT exercises this morning, denies palpitations. He endorses intermittent SOB. He does not answer when I ask if he can sleep with HOB flat. Per family member, he could previously lay flat at night to sleep. MEDICATIONS: Current Facility-Administered Medications Medication Dose Route Frequency NaCl 0.9% iv flush bag 20 mL INTRAVENOUS PRN aluminum-magnesium hydroxide-simethicone 200-200-20 mg/5 mL 30 mL 30 mL ORAL DAILY PRN ondansetron 4 mg tab(s) (ZOFRAN) 4 mg ORAL q 6 H PRN Or ondansetron (PF) 4 mg injection (ZOFRAN) 4 mg INTRAVENOUS q 6 H PRN polyethylene glycol 3350 17 g packet 17 g ORAL DAILY PRN acetaminophen 650 mg tab(s) (TYLENOL) 650 mg ORAL q 6 H PRN HYDROcodone 5 mg - acetaminophen 325 mg tablet (NORCO) 1 tablet ORAL q [address] 40 mg tab(s) (PROTONIX) 40 mg ORAL DAILY (6 AM) multivitamin-ferrous fumarate-folic acid 1 tablet (CENTRUM) 1 tablet ORAL DAILY cyanocobalamin 1,000 mcg tab(s) (VITAMIN B-12) 1,000 mcg ORAL DAILY folic acid 1 mg tab(s) 1 mg ORAL DAILY atorvastatin 20 mg tab(s) (LIPITOR) 20 mg ORAL DAILY levothyroxine 100 mcg tab(s) (SYNTHROID) 100 mcg ORAL DAILY aspirin 81 mg chewable tab(s) 81 mg ORAL DAILY miconazole 2 % 1 application topical powder 1 application TOPICAL BID nitroglycerin sublingual 0.4 mg tab(s) (NITROQUICK) 0.4 mg SUBLINGUAL q 5 MIN PRN furosemide 40 mg injection (LASIX) 40 mg INTRAVENOUS BID 9a/5p sacubitril-valsartan 24-26 mg 1 tablet (ENTRESTO) 1 tablet ORAL BID empagliflozin 10 mg tab(s) (JARDIANCE) 10 mg ORAL DAILY metoprolol succinate ER 25 mg tab(s) (TOPROL XL) 25 mg ORAL DAILY heparin 5,000 Units injection 5,000 Units SUBCUTANEOUS q 12 H melatonin 6 mg tab(s) 6 mg ORAL AT BEDTIME PRN Vital Signs 07/19/25 0657 07/19/25 0821 07/19/25 0932 07/19/25 0947 BP: 97/58 92/51 92/51 Pulse: 77 Resp: 16 Temp: 36.3 ?C (97.3 ?F) TempSrc: Oral SpO2: 96% Weight: 87.2 kg (192 lb 3.9 oz) Height: PHYSICAL EXAM: Physical Exam Vitals reviewed. Constitutional: Comments: drowsy Eyes: General: No scleral icterus. Cardiovascular: Rate and Rhythm: Normal rate and regular rhythm. Pulses: Normal pulses. Heart sounds: Normal heart sounds. Pulmonary: Effort: Pulmonary effort is normal. Breath sounds: Examination of the right-lower field reveals decreased breath sounds. Examination of the left-lower field reveals decreased breath sounds. Decreased breath sounds present. Musculoskeletal: Right lower leg: Edema present. Left lower leg: Edema present. Skin: General: Skin is warm and dry. Capillary Refill: Capillary refill takes less than 2 seconds. Neurological: Mental Status: He is oriented to person, place, and time and easily aroused. Psychiatric: Mood and Affect: Mood normal. Behavior: Behavior normal. Telemetry:V-Paced Intake/Output: Intake/Output Summary (Last 24 hours) at 07/19/2025 1025 Last data filed at 07/19/2025 0521 Gross per 24 hour Intake -- Output 2100 ml Net -2100 ml Labs: Recent Labs 07/19/25 0425 07/18/25 0419 07/17/25 0551 WBC 6.75 7.25 7.36 HB 10.5* 10.7* 11.5* HCT 32.6* 33.0* 35.1* PLT 152 191 199 Recent Labs 07/17/25 1339 07/17/25 0551 07/16/25 2219 APTT 118.1* 48.9* 52.4* Recent Labs 07/18/25 0419 07/17/25 0551 NA 139 139 K 4.9 -- CHLOR 99 98 CO2 30 30 BUN 27* 24 CREAT 0.99 0.93 GLUC 132* 95 Magnesium Date Value Ref Range Status 07/14/2025 2.2 1.6 - 2.6 mg/dL Final TSH 9.368 07/14/2025 Triglyceride 37 07/14/2025 HDL Cholesterol 49 07/14/2025 LDL Chol, Swiss 28 07/14/2025 Cholesterol, Total 88 07/14/2025 Lab Results Component Value Date HSTROP 64.8 (H) 07/14/2025 HSTROP 90.6 (H) 07/14/2025 HSTROP 77.7 (H) 07/13/2025 PBN (more content not included)... Normal [facility] Magnesium SerPl-mCncon 07-19 Magnesium [Mass/Vol] 2.4 mg/dL Normal 1.6-2.6 [facility] Comment on above: Order Comment: Speci men Type: BLOOD SPECIMENOrdering Facility: [facility] Address: [address] [place] [address] [place] [address] Performed By: #### 2 4321-2, 14257-2 ####[facility]ATORYCLIA [id number] [address] THERAPY NTon 07-19-2025 THERAPY NT HNO ID: [id number] Author: JOVANI DE LUNA PT Service: ? Author Type: Physical Therapist Type: Therapy (PT/OT/Speech/Resp) Filed: 07/19/2025 12:29 Note Text: Physical Therapy Evaluation Summary SERVICE DATE: 07/19/2025 SERVICE TIME: 1118 to 1204 ROOM: [place] [address] PT 6 Clicks Score: 16 DISCHARGE RECOMMENDATIONS Subacute/SNF Recommended Discharge Disposition Comments: Pt functioning below his baseline and would benefit from continued skilled therapy before returning home at this time. Recommended Discharge Disposition Due to: Functional deficits requiring ongoing therapy service prior to discharge home., Patient requires daily (5x/week) skilled therapy at next level of care. Anticipated Discharge Needs: Physical Assist at Home, Supervision at Home Physical Assist at Home for: Ambulation, Cleaning, Laundry, Meals, Safety, Self Care, Shopping, Transportation Supervision at Home due to: Decreased safety awareness Recommended Discharge Equipment: To Be Determined ASSESSMENT Response to Therapy Interventions: Good Participation in Activities, Low Activity Tolerance Pt demonstrated good participation in therapy interventions performed this date. He did demonstrate limited tolerance to activity due to deconditioning and fatigue. Pt demonstrated instability on his feet during ambulation w/ a FWW. Pt is not currently functioning at his baseline and would benefit from continued skilled therapy before return home. PRECAUTIONS Bed/Chair Alarm, Fall Risk, Lines/Tubes/Drains 2L NC CURRENT HOSPITAL COURSE Pt presents to [facility] with complaints of extremity edema and after a hearth cath was found to have decreased EF of 31%. Relevant Past Medical History: chronic atrial fibrillation on Xarelto, CHF, hypothyroidism, hypercholesterolemia, CML and chronic venous stasis HOME LIVING Patient Lives With: Self/Alone, Other: See Comment Comments: lives in independent living. Assistance Available: Other: See Comment, PRN Comments: lives in independent living and can have help in emergencies but does not have consistent help. Entry To Home: No Stairs, Elevator Number Of Stairs To Bed/Bath: 0 Tub/Shower Type: walk in shower with grab bars and shower chair. Laundry: Pt completes on his own. Equipment Owned: Cane, Walker- Wheeled, Rollator, Scooter- Power, Shower Chair, Hand Held Shower PRIOR FUNCTIONAL LEVEL Within Functional Limits, Required Assistance, History of Falls Assistance Required With: Shopping, Transportation, Self Care (putting on compression stockings) Pt reports being mod I with mobility at baseline using a FWW. Pt reports that he needs assist with transportation and putting on compression stockings. Pt reports he is able to bath on his own and cook and clean. SUBJECTIVE Pt agreeable to therapy this date. THERAPY DIAGNOSIS Reduced mobility-other, Unsteadiness on feet TREATMENT INTERVENTIONS Evaluation, Therapeutic Exercise (51006) Timed Code Treatment (minutes): 26 Skilled Treatment Time (minutes): 41 TRAINING AND EDUCATION PROVIDED Anatomy and Impact on Deficits, Assistive Device Use, Benefits of In-Hospital Mobility, Discharge Planning, Disease Specific Education, Energy Conservation, Expected Functional Level, Falls Prevention, Gait Pattern, Reduction of Deviations, Home Safety, Role of Physical Therapy, Sitting Balance, Standing Balance, Transfers THERAPEUTIC SKILLS USED Activity Dosing, Cues for Sequencing/Proper Technique for Activity, Cuing Verbal, Cuing Visual, Management of Critical Lines, Tubes and/or Drains, Movement Facilitation, Physical Assist FUNCTIONAL STATUS Bed Mobility Scooting: Supervision Transfers Sit To Stand: Moderate Assistance, Additional Information cues for hand placement Stand To Sit: Moderate Assistance, Additional Information cues for eccentric control Bed to Chair Gait Minimal Assistance, Additional Information Pt demonstrated mild instability on his feet when ambulating in the room. Gait Device: Wheeled Walker General Deviations/Observations: Kalina decreased, Lateral sway increased Gait Distance (feet): 30 Stairs GOALS Patient will demonstrate progress with functional mobility to allow safe discharge to home with available support and/or physical assistance. Transfer Supine to/from Sit with: Modified Independent Transfer Sit to/from Stand with: Modified Independent Ambulate with: Modified Independent Distance: 80ft Device: Wheeled Walker Rehab Potential: Good Good Rehab Potential Due To: Current objective clinical presentation, Good motivation Progress Toward Goals: Progressing as expected ACUTE CARE TREATMENT PLAN PT Frequency: 5 Times Per Week Treatment Interventions: Education, Energy Conservation Training, Strengthening, Functional Mobility Training, Balance Training, Neuromuscular Re-education Plan for Next Visit: Gait Training, Sit to Stand Transfers, Standing Balance, S (more content not included)... Normal [facility] Basic metabolic 2000 panelon 07-18-2025 Anion gap [Moles/Vol] 10 mmol/L Normal 5-16 [facility] Comment on above: Order Comment: Speci men Type: BLOOD SPECIMENOrdering Facility: [facility] Address: [address] [place] [address] Performed By: #### 2 4321-2 ####[facility]ATORYCLIA [id number] [place] [address] [place] Calcium [Mass/Vol] 9.2 mg/dL Normal 8.5-10.5 [facility] Comment on above: Order Comment: Speci men Type: BLOOD SPECIMENOrdering Facility: [facility] Address: [address] [place] [address] Performed By: #### 2 4321-2 ####[facility]ATORYCLIA [id number] [place] [address] [place] Chloride [Moles/Vol] 99 mmol/L Normal 98-107 [facility] Comment on above: Order Comment: Speci men Type: BLOOD SPECIMENOrdering Facility: [facility] Address: [address] [place] [address] Performed By: #### 2 4321-2 ####[facility]ATORYCLIA [id number] [place] [address] [place] CO2 [Moles/Vol] 30 mmol/L Normal 21-32 [facility] Comment on above: Order Comment: Speci men Type: BLOOD SPECIMENOrdering Facility: [facility] Address: [address] [place] [address] Performed By: #### 2 4321-2 ####[facility]ATORYCLIA [id number] [place] [id number] [place] Creatinine [Mass/Vol] 0.99 mg/dL Normal 0.50-1.40 [facility] Comment on above: Order Comment: Speci men Type: BLOOD SPECIMENOrdering Facility: [facility] Address: [address] [place] [address] Result Comment: Kierra ents receiving either N-Acetylcysteine (NAC) or Metamizole prior to venipuncture, may have falsely depressed results. Performed By: #### 2 4321-2 ####[facility]ATORYCLIA [id number] [address] [place] eGFRcr SerPlBld CKD-EPI 2020 73 mL/min/1.73m??? Normal >=60 [facility] Comment on above: Order Comment: Speci men Type: BLOOD SPECIMENOrdering Facility: [facility] Address: [address] [place] [address] Result Comment: Concepción mated Glomerular Filtration Rate [...] actual GFR. Performed By: #### 2 4321-2 ####[facility]ATORYCLIA [id number] [place] [address] [place] Glucose [Mass/Vol] 132 mg/dL High 70-100 [facility] Comment on above: Order Comment: Speci men Type: BLOOD SPECIMENOrdering Facility: [facility] Address: [address] [place] [address] Result Comment: The [place] Diabetes Association (ADA) provides guidance for cutoff values for fasting glucose and random glucose. The ADA defines fasting as no caloric intake for at least 8 hours. Fasting plasma glucose results between 100 to 125 mg/dL indicate increased risk for diabetes (prediabetes). Fasting plasma glucose results greater than or equal to 126 mg/dL meet the criteria for diagnosis of diabetes. In the absence of unequivocal hyperglycemia, results should be confirmed by repeat testing. In a patient with classic symptoms of hyperglycemia or hyperglycemic crisis, random plasma glucose results greater than or equal to 200 mg/dL meet the criteria for diagnosis of diabetes. Reference: Standards of Medical Care in Diabetes 2016, [place] Diabetes [employer]. Diabetes Care. 2016.39(Suppl 1). Results may be falsely elevated after the administration of Sulfapyridine. Results may be falsely depressed after the administration of Sulfasalazine. Performed By: #### 2 4321-2 ####[facility]ATORYCLIA [id number] [place] [address] [place] Potassium [Moles/Vol] 4.9 mmol/L Normal 3.5-5.1 [facility] Comment on above: Order Comment: Elfego gilbert Type: BLOOD SPECIMENOrdering Facility: [facility] Address: [address] [place] [address] Performed By: #### 2 4321-2 ####[facility]ATORYCLIA [id number] [place] [address] [place] Sodium [Moles/Vol] 139 mmol/L Normal 136-145 [facility] Comment on above: Order Comment: Elfego gilbert Type: BLOOD SPECIMENOrdering Facility: [facility] Address: [address] [place] [address] Performed By: #### 2 4321-2 ####[facility]ATORYCLIA [id number] [place] [address] [place] Urea nitrogen [Mass/Vol] 27 mg/dL High 7-26 [facility] Comment on above: Order Comment: Elfego gilbert Type: BLOOD SPECIMENOrdering Facility: [facility] Address: [address] [place] [address] Performed By: #### 2 4321-2 ####[facility]ATORYCLIA [id number] [place] [address] [place] CBC panel Auto (Bld)on 07-18 Erythrocyte distribution width (RBC) [Ratio] 24.8 % High 11.5-15.0 [facility] Comment on above: Order Comment: Speci men Type: BLOOD SPECIMENOrdering Facility: [facility] Address: [address] [place] [address] Performed By: #### 5 8410-2 ####[facility]ATORYCLIA [id number] [place] [address] [place] [facility] [place] Hematocrit (Bld) [Volume fraction] 33.0 % Low 39.0-51.0 [facility] Comment on above: Order Comment: Speci men Type: BLOOD SPECIMENOrdering Facility: [facility] Address: [address] [place] [address] Performed By: #### 5 8410-2 ####[facility]ATORYCLIA [id number] [place] [address] [place] Hemoglobin (Bld) [Mass/Vol] 10.7 g/dL Low 13.0-17.0 [facility] Comment on above: Order Comment: Speci men Type: BLOOD SPECIMENOrdering Facility: [facility] Address: [address] [place] [address] Performed By: #### 5 8410-2 ####[facility]ATORYCLIA [id number] [place] [address] [place] MCH (RBC) [Entitic mass] 35.5 pg High 26.0-34.0 [facility] Comment on above: Order Comment: Speci men Type: BLOOD SPECIMENOrdering Facility: [facility] Address: [address] [place] [address] Performed By: #### 5 8410-2 ####[facility]ATORYCLIA [id number] [address] [place] MCHC (RBC) [Mass/Vol] 32.4 g/dL Normal 30.5-36.0 [facility] Comment on above: Order Comment: Speci men Type: BLOOD SPECIMENOrdering Facility: [facility] Address: [address] [place] [address] Performed By: #### 5 8410-2 ####[facility]ORATORYCLIA [id number] [place] [id number] [facility] [place] MCV (RBC) [Entitic vol] 109.6 fL High 80.0-100.0 [facility] Comment on above: Order Comment: Speci men Type: BLOOD SPECIMENOrdering Facility: [facility] Address: [address] [place] [address] Performed By: #### 5 8410-2 ####[facility]ATORYCLIA [id number] [address] Nucleated RBC (Bld) [#/Vol] 0.03 10*3/uL High <0.01 [facility] Comment on above: Order Comment: Speci men Type: BLOOD SPECIMENOrdering Facility: [facility] Address: [address] [place] [address] Performed By: #### 5 8410-2 ####[facility]ORATORYCLIA [id number] [address] [place] Platelet mean volume (Bld) [Entitic vol] 11.2 fL Normal 9.0-12.7 [facility] Comment on above: Order Comment: Speci men Type: BLOOD SPECIMENOrdering Facility: [facility] Address: [address] [place] [address] Performed By: #### 5 8410-2 ####[facility]ATORYCLIA [id number] [place] [address] [place] Platelets (Bld) [#/Vol] 191 10*3/uL Normal 150-400 [facility] Comment on above: Order Comment: Speci men Type: BLOOD SPECIMENOrdering Facility: [facility] Address: [address] [place] [address] Performed By: #### 5 8410-2 ####[facility]ORATORYCLIA [id number] [place] [address] [place] RBC (Bld) [#/Vol] 3.01 10*6/uL Low 4.20-6.00 [facility] Comment on above: Order Comment: Speci men Type: BLOOD SPECIMENOrdering Facility: [facility] Address: [address] [place] [address] Performed By: #### 5 8410-2 ####[facility] LABORATORYCLIA [id number] [address] WBC (Bld) [#/Vol] 7.25 10*3/uL Normal 3.70-11.00 [facility] Comment on above: Order Comment: Speci men Type: BLOOD SPECIMENOrdering Facility: [facility] Address: [address] [place] [address] Performed By: #### 5 8410-2 ####[facility] LABORATORYCLIA [id number] [place] [id number] [facility] CONSULT PROGon 07-18-2025 CONSULT PROG HNO ID: [id number] Author: ALESHA SANDHU PA-C Service: Cardiovascular Medicine Author Type: Physician Director Of Counseling Type: Consult Progress Note Filed: 07/18/2025 15:19 Note Text: CARDIOLOGY PROGRESS NOTE Cardiology attending: Dr. Gutierrez Reason for initial consult: acute on chronic chf exac INTERVAL HPI: Mr. 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 He was recently admitted with cellulitis. Patient is currently admitted for acute on chronic heart failure. No acute events overnight. Stable on room air. Net I/O -2.1 L since admission. Electrolytes and creatinine stable. INTERVAL ROS: Patient reports continued shortness of breath, intermittent coughing, bendopnea, and edema. He denies chest discomfort, nausea, diaphoresis, palpitations, or lightheadedness at this time. Reviewed cardiac catheterization results and plan of care with patient including medication changes and indication for LifeVest, which patient declined. Plan of care also reviewed with patient's daughter via phone at bedside. All questions answered to their satisfaction. MEDICATIONS: Current Facility-Administered Medications Medication Dose Route Frequency NaCl 0.9% iv flush bag 20 mL INTRAVENOUS PRN aluminum-magnesium hydroxide-simethicone 200-200-20 mg/5 mL 30 mL 30 mL ORAL DAILY PRN ondansetron 4 mg tab(s) (ZOFRAN) 4 mg ORAL q 6 H PRN Or ondansetron (PF) 4 mg injection (ZOFRAN) 4 mg INTRAVENOUS q 6 H PRN polyethylene glycol 3350 17 g packet 17 g ORAL DAILY PRN acetaminophen 650 mg tab(s) (TYLENOL) 650 mg ORAL q 6 H PRN HYDROcodone 5 mg - acetaminophen 325 mg tablet (NORCO) 1 tablet ORAL q [address] 40 mg tab(s) (PROTONIX) 40 mg ORAL DAILY (6 AM) multivitamin-ferrous fumarate-folic acid 1 tablet (CENTRUM) 1 tablet ORAL DAILY cyanocobalamin 1,000 mcg tab(s) (VITAMIN B-12) 1,000 mcg ORAL DAILY folic acid 1 mg tab(s) 1 mg ORAL DAILY atorvastatin 20 mg tab(s) (LIPITOR) 20 mg ORAL DAILY levothyroxine 100 mcg tab(s) (SYNTHROID) 100 mcg ORAL DAILY aspirin 81 mg chewable tab(s) 81 mg ORAL DAILY miconazole 2 % 1 application topical powder 1 application TOPICAL BID metoprolol succinate ER 12.5 mg tab(s) (TOPROL XL) 12.5 mg ORAL DAILY nitroglycerin sublingual 0.4 mg tab(s) (NITROQUICK) 0.4 mg SUBLINGUAL q 5 MIN PRN furosemide 40 mg injection (LASIX) 40 mg INTRAVENOUS BID 9a/5p furosemide 40 mg injection (LASIX) 40 mg INTRAVENOUS ONCE Vital Signs 07/17/25 2256 07/18/25 0500 07/18/25 0502 07/18/25 0837 BP: 142/88 129/81 124/74 Pulse: 91 87 Resp: 18 18 Temp: 36.5 ?C (97.7 ?F) 36.7 ?C (98.1 ?F) TempSrc: Oral Temporal SpO2: 95% 94% Weight: 87.4 kg (192 lb 10.9 oz) Height: PHYSICAL EXAM: General: AANDOx3, no acute distress, sitting in chair HEENT: normocephalic, PERRL, anicteric sclera, mucus membranes moist Neck: normal appearance, no JVD Respiratory: normal effort on room air, bibasilar crackles Cardiac: normal s1, s2 RRR without murmurs, rubs, or gallops Abdomen: normoactive bowel sounds, nontender, no distention or palpable masses Extremities: cold extremities, peripheral pulses intact, 3+ pitting edema right upper extremity, 2-3+ pitting edema bilateral lower extremities with chronic skin changes, dressing in place left radial Telemetry: AF, rate 80-90s Intake/Output: Intake/Output Summary (Last 24 hours) at 07/18/2025 1056 Last data filed at 07/18/2025 0800 Gross per 24 hour Intake 500 ml Output 1000 ml Net -500 ml Labs: Recent Labs 07/18/2541807/17/25 0551 07/16/25 0648 WBC 7.25 7.36 7.88 HB 10.7* 11.5* 10.9* HCT 33.0* 35.1* 33.4* PLT 191 199 183 Recent Labs 07/17/25 1339 07/17/25 0551 07/16/25 2219 APTT 118.1* 48.9* 52.4* Recent Labs 07/18/25 0419 07/17/25 0551 07/16/25 0941 07/16/25 0648 NA 139 139 -- 139 K 4.9 -- 4.7 -- CHLOR 99 98 -- 100 CO2 30 30 -- 27 BUN 27* 24 -- 25 CREAT 0.99 0.93 -- 1.09 GLUC 132* 95 -- 142* Magnesium Date Value Ref Range Status 07/14/2025 2.2 1.6 - 2.6 mg/dL Final TSH 9.368 07/14/2025 Triglyceride 37 07/14/2025 HDL Cholesterol 49 07/14/2025 LDL Chol, Marva 28 07/14/2025 Cholesterol, Total 88 07/14/2025 Lab Results Component Value Date HSTROP 64.8 (H) 07/14/2025 HSTROP 90.6 (H) 07/14/2025 HSTROP 77.7 (H) 07/13/2025 PBNP 17,919 (H) 07/13/2025 Diagnostics: Echo 07/14/2025: Impression CONCLUSIONS: - Technically difficult exam due to suboptimal positioning. - Exam indication: Re-evaluation of known heart failure with a change in clinical status without change in med/diet - The left (more content not included)... [facility] BRIEF OP NOTon 07-17-2025 BRIEF OP NOT HNO ID: [id number] Author: DOMINGO JOHNSTON MD Service: Interventional Cardiology Author Type: Physician Type: Brief Op Note Filed: 07/17/2025 15:52 Note Text: OPERATIVE NOTE Procedure DATE: 07/17/25 Proceduralist(s) and Director Of Counseling(s): Domingo Sanchez MD Procedures: 1. Left heart cath coronary angiography. 2. Bypass graft angiography. Brief History : 89 years old white male who is referred for coronary angiography possible revascularization with diagnosis of non-STEMI. Patient with known history of three-vessel occlusive coronary artery disease history of CABG X4 in [place] in [facility] where he had ORNELAS to LAD, SVG to RCA, SVG to ramus intermedius and SVG to circumflex OM. Surgery was performed 07/22/2021. 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 Patient denies any chest pain or dizziness or syncope. He lost his 4 years ago he has 2 daughters and 2 sons his oldest daughter was in the waiting area during the procedure. Risk and benefit of procedure discussed with the patient and he was consented. Procedure Details: The patient was brought to cardiac Claims Coordinator, draped and positioned in usual fashion for left radial artery approach. Under complete aseptic and sterile condition 2% Xylocaine without epinephrine was used local anesthesia. Using modified Seldinger technique 5 Swedish arterial sheath was placed left radial artery angiography was performed utilizing 5 Swedish multipurpose and 5 Swedish JL 3 5 catheters at the conclusion of the procedure arterial sheath was removed hemostasis secured by quick clot patient transferred back to a monitored bed in stable condition. Results were discussed with the patient and the he is daughter who works in physical therapy. Anesthesia: Local Findings: 1. Coronary angiography: A. Left main: Large-caliber vessel with minor plaque disease normally bifurcates into LAD and nondominant circumflex. B. Left anterior descending coronary artery: Large-caliber vessel with diffuse 99% stenosis competitive flow from patent ORNELAS was noted. C. Circumflex coronary artery: Nondominant with diffuse 90 to 95% stenosis. D. Ramus intermedius: Totally occluded E. Right coronary artery: Proximal 80% distal 90% diffuse disease PDA is totally occluded. 2. Bypass graft angiography: A. Left internal mammary to LAD: Wide patent with excellent antegrade flow B. Reverse saphenous venous graft to PDA: Relatively small caliber graft with excellent antegrade flow to diffusely diseased vessel. C. Reverse saphenous venous graft to ramus intermedius: Widely patent with only retrograde flow to mid and the proximal ramus intermedius. D. Reverse saphenous venous graft to circumflex OM: Not visualized. Estimated Blood Loss: minimal Complications: None Preop Diagnosis: Patient with multiple risk factors for coronary artery disease admitted with cellulitis is mild elevation cardiac enzymes ejection fraction down to 31% Postop Diagnosis: 1. Noninvasive echo evidence of LV dysfunction ejection fraction 31% with +3 tricuspid regurg. 2. Three-vessel occlusive coronary artery disease: A. LM: Minor plaque disease. B. LAD: Mid vessel subtotal occlusion C. CX: Diffuse 95% occlusive disease. D. RCA: Proximal 80% distal diffuse 90% occlusive disease. 3. ORNELAS to LAD: Wide patent. 4. SVG to PDA: Wide patent. 5. SVG to ramus intermedius: Wide patent. Discussions and recommendation Patient with three-vessel occlusive coronary artery disease 3 out of the 4 grafts were proven to be patent. Patient has diffuse [place] coronary artery disease the drop of ejection fraction not sure is ischemic cardiomyopathy. Recommend continue risk factor modifications and medical management. SIGNATURE: Domingo Sanchez MD PATIENT NAME:Srini Luis DATE: 07/17/25 TIME: 3:05 PM Normal [facility] Basic metabolic 2000 panelon 07-17-2025 Anion gap [Moles/Vol] 11 mmol/L Normal 5-16 [facility] Comment on above: Order Comment: Speci men Type: BLOOD SPECIMENOrdering Facility: [facility] Address: [address] [place] [address] Performed By: #### 2 4321-2 ####[facility] LABORATORYCLIA [id number] [place] [id number] [place] Calcium [Mass/Vol] 9.2 mg/dL Normal 8.5-10.5 [facility] Comment on above: Order Comment: Speci men Type: BLOOD SPECIMENOrdering Facility: [facility] Address: [address] [place] [address] Performed By: #### 2 4321-2 ####[facility]ORATORYCLIA [id number] [place] [address] [place] Chloride [Moles/Vol] 98 mmol/L Normal 98-107 [facility] Comment on above: Order Comment: Speci men Type: BLOOD SPECIMENOrdering Facility: [facility] Address: [address] [place] [address] Performed By: #### 2 4321-2 ####[facility]ORATORYCLIA [id number] [place] [id number] [place] CO2 [Moles/Vol] 30 mmol/L Normal 21-32 [facility] Comment on above: Order Comment: Speci men Type: BLOOD SPECIMENOrdering Facility: [facility] Address: [address] [place] [address] Performed By: #### 2 4321-2 ####[facility] LABORATORYCLIA [id number] [place] [address] [place] Creatinine [Mass/Vol] 0.93 mg/dL Normal 0.50-1.40 [facility] Comment on above: Order Comment: Speci men Type: BLOOD SPECIMENOrdering Facility: [facility] Address: [address] [place] [address] Result Comment: Kierra ents receiving either N-Acetylcysteine (NAC) or Metamizole prior to venipuncture, may have falsely depressed results. Performed By: #### 2 4321-2 ####[facility]ORATORYCLIA [id number] [place] [id number] [place] eGFRcr SerPlBld CKD-EPI 2020 78 mL/min/1.73m??? Normal >=60 [facility] Comment on above: Order Comment: Elfego gilbert Type: BLOOD SPECIMENOrdering Facility: [facility] Address: [address] [place] [address] Result Comment: Concepción mated Glomerular Filtration Rate [...] actual GFR. Performed By: #### 2 4321-2 ####[facility]ATORYCLIA [id number] [place] [address] [place] Glucose [Mass/Vol] 95 mg/dL Normal 70-100 [facility] Comment on above: Order Comment: Elfego gilbert Type: BLOOD SPECIMENOrdering Facility: [facility] Address: [address] [place] [address] Result Comment: The [place] Diabetes Association (ADA) provides guidance for cutoff values for fasting glucose and random glucose. The ADA defines fasting as no caloric intake for at least 8 hours. Fasting plasma glucose results between 100 to 125 mg/dL indicate increased risk for diabetes (prediabetes). Fasting plasma glucose results greater than or equal to 126 mg/dL meet the criteria for diagnosis of diabetes. In the absence of unequivocal hyperglycemia, results should be confirmed by repeat testing. In a patient with classic symptoms of hyperglycemia or hyperglycemic crisis, random plasma glucose results greater than or equal to 200 mg/dL meet the criteria for diagnosis of diabetes. Reference: Standards of Medical Care in Diabetes 2016, [place] Diabetes Association. Diabetes Care. 2016.39(Suppl 1). Results may be falsely elevated after the administration of Sulfapyridine. Results may be falsely depressed after the administration of Sulfasalazine. Performed By: #### 2 4321-2 ####[facility]ORATORYCLIA [id number] [place] [id number] [place] Potassium [Moles/Vol] Normal [facility] Comment on above: Order Comment: Speci men Type: BLOOD SPECIMENOrdering Facility: [facility] Address: [address] [place] [address] Result Comment: Unab le to assay due to interference from hemolysis. Suggest reorder as clinically indicated. NOTIFIED CAMI ON 7M OF HEMOLYZED K Performed By: #### 2 4321-2 ####[facility] LABORATORYCLIA [id number] [place] [id number] [place] Sodium [Moles/Vol] 139 mmol/L Normal 136-145 [facility] Comment on above: Order Comment: Speci men Type: BLOOD SPECIMENOrdering Facility: [facility] Address: [address] [place] [address] Performed By: #### 2 4321-2 ####[facility] LABORATORYCLIA [id number] [place] [address] [place] Urea nitrogen [Mass/Vol] 24 mg/dL Normal 7-26 [facility] Comment on above: Order Comment: Speci men Type: BLOOD SPECIMENOrdering Facility: [facility] Address: [address] [place] [address] Performed By: #### 2 4321-2 ####[facility]ORATORYCLIA [id number] [place] [id number] [place] CARD CATH DIAGNOSTICon 07-17 CARD CATH DIAGNOSTIC Site Id: [facility] Lab #: DEFAULT Study Date: 07/17/2025 Start Time: End Time: Name Duty Domingo Sanchez MD PROC 1 Addison Joseph RT(R) PROC SCRUB 1 Larry Boykin RN PROC CIRC 1 Marcos Lazo RN PROC CIRC 2 Fernanda Garber RN PROC RECORD 1 + + PATIENT INFORMATION + + Name: MR. SRINI LUIS : 1935 Age: 89 years Gender: M + ---+ CLINICAL HISTORY/INDICATIONS + ---+ Abnormal ECG. Procedural Status: Urgent CAD Presentation: Symptoms Likely to be Ischemic Angina Classification (within 2 weeks): No Angina Heart Failure Clinical History: 89 years old white male who is referred for coronary angiography possible revascularization with diagnosis of non-STEMI. Patient with known history of three-vessel occlusive coronary artery disease history of CABG X4 in [place] in [facility] where he had ORNELAS to LAD, SVG to RCA, SVG to ramus intermedius and SVG to circumflex OM. Surgery was performed 07/22/2021. 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 Patient denies any chest pain or dizziness or syncope. He lost his 4 years ago he has 2 daughters and 2 sons his oldest daughter was in the waiting area during the procedure. Risk and benefit of procedure discussed with the patient and he was consented. + + DIAGNOSTIC FINDINGS + + Coronary Anatomy: Right Dominant Injection Site(s): lt rad 5f LMT: _ The LMT has mild luminal irregularities. LAD: _ The LAD has severe diffuse disease. LCX: _ The Circumflex has severe diffuse disease. RAMUS: _ The Ramus has severe diffuse disease. RCA: _ The RCA has severe diffuse disease. GRAFTS: _ Left Internal Mammary Artery Graft to the Left Anterior Descending . Additional Comments - Wide patent. _ Saphenous Vein Graft to the Ramus Intermedius . Additional Comments - Patent. _ Saphenous Vein Graft to the Right Coronary Artery . Additional Comments - Patent. + + IMPRESSION/PLAN + + Impression:Findings: 1. Coronary angiography: A. Left main: Large-caliber vessel with minor plaque disease normally bifurcates into LAD and nondominant circumflex. B. Left anterior descending coronary artery: Large-caliber vessel with diffuse 99% stenosis competitive flow from patent ORNELAS was noted. C. Circumflex coronary artery: Nondominant with diffuse 90 to 95% stenosis. D. Ramus intermedius: Totally occluded E. Right coronary artery: Proximal 80% distal 90% diffuse disease PDA is totally occluded. 2. Bypass graft angiography: A. Left internal mammary to LAD: Wide patent with excellent antegrade flow B. Reverse saphenous venous graft to PDA: Relatively small caliber graft with excellent antegrade flow to diffusely diseased vessel. C. Reverse saphenous venous graft to ramus intermedius: Widely patent with only retrograde flow to mid and the proximal ramus intermedius. D. Reverse saphenous venous graft to circumflex OM: Not visualized. Postop Diagnosis: 1. Noninvasive echo evidence of LV dysfunction ejection fraction 31% with +3 tricuspid regurg. 2. Three-vessel occlusive coronary artery disease: A. LM: Minor plaque disease. B. LAD: Mid vessel subtotal occlusion C. CX: Diffuse 95% occlusive disease. D. RCA: Proximal 80% distal diffuse 90% occlusive disease. 3. ORNELAS to LAD: Wide patent. 4. SVG to PDA: Wide patent. 5. SVG to ramus intermedius: Wide patent. Recommended Treatment: Medical Therapy. Plan: Patient with three-vessel occlusive coronary artery disease 3 out of the 4 grafts were proven to be patent. Patient has diffuse [place] coronary artery disease the drop of ejection fraction not sure is ischemic cardiomyopathy. Recommend continue risk factor modifications and medical management. + + HEMODYNAMICS - XPER + + + +------+- ----+-------+-----+------+ ------+ Measurement Name Sys Lisa End Lisa Mean A Wave V Wave + +------+- ----+-------+-----+------+ ------+ AO 130.00 39.00 88.00 + +------+- ----+-------+-----+------+ ------+ Oximetry: +----+----+ +- -+---+--+ Time Site O2 Saturation O2 PO2 HB +----+----+ +- -+---+--+ + ---------+ ADVERSE OUTCOME(s)/COMPLICATION(s) + ---------+ None + -----+ PRO (more content not included)... Normal [facility] CBC panel Auto (Bld)on 07-17 Erythrocyte distribution width (RBC) [Ratio] 24.8 % High 11.5-15.0 [facility] Comment on above: Order Comment: Elfego gilbert Type: BLOOD SPECIMENOrdering Facility: [facility] Address: [address] [place] [address] Performed By: #### 5 8410-2 ####[facility] LABORATORYCLIA [id number] [place] [address] [place] Hematocrit (Bld) [Volume fraction] 35.1 % Low 39.0-51.0 [facility] Comment on above: Order Comment: Speci men Type: BLOOD SPECIMENOrdering Facility: [facility] Address: [address] [place] [address] Performed By: #### 5 8410-2 ####[facility]ORATORYCLIA [id number] [place] [address] [place] Hemoglobin (Bld) [Mass/Vol] 11.5 g/dL Low 13.0-17.0 [facility] Comment on above: Order Comment: Speci men Type: BLOOD SPECIMENOrdering Facility: [facility] Address: [address] [place] [address] Performed By: #### 5 8410-2 ####[facility]ORATORYCLIA [id number] [place] [address] [place] MCH (RBC) [Entitic mass] 36.1 pg High 26.0-34.0 [facility] Comment on above: Order Comment: Speci men Type: BLOOD SPECIMENOrdering Facility: [facility] Address: [address] [place] [address] Performed By: #### 5 8410-2 ####[facility]ATORYCLIA [id number] [place] [address] [place] MCHC (RBC) [Mass/Vol] 32.8 g/dL Normal 30.5-36.0 [facility] Comment on above: Order Comment: Speci men Type: BLOOD SPECIMENOrdering Facility: [facility] Address: [address] [place] [address] Performed By: #### 5 8410-2 ####[facility]ORATORYCLIA [id number] [place] [address] [place] MCV (RBC) [Entitic vol] 110.0 fL High 80.0-100.0 [facility] Comment on above: Order Comment: Speci men Type: BLOOD SPECIMENOrdering Facility: [facility] Address: [address] [place] [address] Performed By: #### 5 8410-2 ####[facility]ORATORYCLIA [id number] [place] [id number] [place] Nucleated RBC (Bld) [#/Vol] 0.04 10*3/uL High <0.01 [facility] Comment on above: Order Comment: Speci men Type: BLOOD SPECIMENOrdering Facility: [facility] Address: [address] [place] [address] Performed By: #### 5 8410-2 ####[facility]ATORYCLIA [id number] [place] [id number] [place] Platelet mean volume (Bld) [Entitic vol] 12.0 fL Normal 9.0-12.7 [facility] Comment on above: Order Comment: Speci men Type: BLOOD SPECIMENOrdering Facility: [facility] Address: [address] [place] [address] Performed By: #### 5 8410-2 ####[facility]ATORYCLIA [id number] [place] [address] [place] Platelets (Bld) [#/Vol] 199 10*3/uL Normal 150-400 [facility] Comment on above: Order Comment: Speci men Type: BLOOD SPECIMENOrdering Facility: [facility] Address: [address] [place] [address] Performed By: #### 5 8410-2 ####[facility]ATORYCLIA [id number] [place] [address] [place] RBC (Bld) [#/Vol] 3.19 10*6/uL Low 4.20-6.00 [facility] Comment on above: Order Comment: Speci men Type: BLOOD SPECIMENOrdering Facility: [facility] Address: [address] [place] [address] Performed By: #### 5 8410-2 ####[facility]ORATORYCLIA [id number] [place] [id number] [place] WBC (Bld) [#/Vol] 7.36 10*3/uL Normal 3.70-11.00 [facility] Comment on above: Order Comment: Speci men Type: BLOOD SPECIMENOrdering Facility: [facility] Address: [address] [place] [address] Performed By: #### 5 8410-2 ####[facility] LABORATORYCLIA [id number] [place] [id number] [place] [facility] aPTT PPPon 07-17-2025 aPTT Coag (PPP) [Time] 118.1 s High 23.0-32.4 [facility] Comment on above: Order Comment: Speci men Type: BLOOD SPECIMENOrdering Facility: [facility] Address: [address] [place] [address] Performed By: #### 1 4979-9 ####[facility]ORATORYCLIA [id number] [place] [id number] [place] [facility] aPTT Coag (PPP) [Time] 48.9 s High 23.0-32.4 [facility] Comment on above: Order Comment: Speci men Type: BLOOD SPECIMENOrdering Facility: [facility] Address: [address] [place] [address] Performed By: #### 1 4979-9 ####[facility]ORATORYCLIA [id number] [place] [id number] [place] Basic metabolic 2000 panelon 07-16-2025 Anion gap [Moles/Vol] 12 mmol/L Normal 5-16 [facility] Comment on above: Order Comment: Speci men Type: BLOOD SPECIMENOrdering Facility: [facility] Address: [address] [place] [address] Performed By: #### 2 4321-2 ####[facility]ORATORYCLIA [id number] [place] [id number] [place] Calcium [Mass/Vol] 8.9 mg/dL Normal 8.5-10.5 [facility] Comment on above: Order Comment: Speci men Type: BLOOD SPECIMENOrdering Facility: [facility] Address: [address] [place] [address] Performed By: #### 2 4321-2 ####[facility]ORATORYCLIA [id number] [place] [address] [place] Chloride [Moles/Vol] 100 mmol/L Normal 98-107 [facility] Comment on above: Order Comment: Speci men Type: BLOOD SPECIMENOrdering Facility: [facility] Address: [address] [place] [address] Performed By: #### 2 4321-2 ####[facility]ORATORYCLIA [id number] [place] [address] [place] CO2 [Moles/Vol] 27 mmol/L Normal 21-32 [facility] Comment on above: Order Comment: Speci men Type: BLOOD SPECIMENOrdering Facility: [facility] Address: [address] [place] [address] Performed By: #### 2 4321-2 ####[facility]ATORYCLIA [id number] [place] [address] [place] Creatinine [Mass/Vol] 1.09 mg/dL Normal 0.50-1.40 [facility] Comment on above: Order Comment: Speci men Type: BLOOD SPECIMENOrdering Facility: [facility] Address: [address] [place] [address] Result Comment: Kierra ents receiving either N-Acetylcysteine (NAC) or Metamizole prior to venipuncture, may have falsely depressed results. Performed By: #### 2 4321-2 ####[facility]ORATORYCLIA [id number] [place] [address] [place] eGFRcr SerPlBld CKD-EPI 2020 65 mL/min/1.73m??? Normal >=60 [facility] Comment on above: Order Comment: Speci men Type: BLOOD SPECIMENOrdering Facility: [facility] Address: [address] [place] [address] Result Comment: Concepción mated Glomerular Filtration Rate [...] actual GFR. Performed By: #### 2 4321-2 ####[facility]ORATORYCLIA [id number] [place] [address] [place] Glucose [Mass/Vol] 142 mg/dL High 70-100 [facility] Comment on above: Order Comment: Elfego gilbert Type: BLOOD SPECIMENOrdering Facility: [facility] Address: [address] [place] [address] Result Comment: The [place] [employer] (ADA) provides guidance for cutoff values for fasting glucose and random glucose. The ADA defines fasting as no caloric intake for at least 8 hours. Fasting plasma glucose results between 100 to 125 mg/dL indicate increased risk for diabetes (prediabetes). Fasting plasma glucose results greater than or equal to 126 mg/dL meet the criteria for diagnosis of diabetes. In the absence of unequivocal hyperglycemia, results should be confirmed by repeat testing. In a patient with classic symptoms of hyperglycemia or hyperglycemic crisis, random plasma glucose results greater than or equal to 200 mg/dL meet the criteria for diagnosis of diabetes. Reference: Standards of Medical Care in Diabetes 2016, [place] [employer]. Diabetes Care. 2016.39(Suppl 1). Results may be falsely elevated after the administration of Sulfapyridine. Results may be falsely depressed after the administration of Sulfasalazine. Performed By: #### 2 4321-2 ####[facility]ATORYCLIA [id number] [place] [address] [place] Potassium [Moles/Vol] Normal [facility] Comment on above: Order Comment: Elfego gilbert Type: BLOOD SPECIMENOrdering Facility: [facility] Address: [address] [place] [address] Result Comment: Unab le to assay due to interference from hemolysis. Suggest reorder as clinically indicated. &XA&notified alex 0802 Performed By: #### 2 4321-2 ####[facility]ATORYCLIA [id number] [place] [address] [place] Sodium [Moles/Vol] 139 mmol/L Normal 136-145 [facility] Comment on above: Order Comment: Speci men Type: BLOOD SPECIMENOrdering Facility: [facility] Address: [address] [place] [address] Performed By: #### 2 4321-2 ####[facility]ATORYCLIA [id number] [place] [id number] [place] Urea nitrogen [Mass/Vol] 25 mg/dL Normal 7- [facility] Comment on above: Order Comment: Speci men Type: BLOOD SPECIMENOrdering Facility: [facility] Address: [address] [place] [address] Performed By: #### 2 4321-2 ####[facility]ATORYCLIA [id number] [place] [id number] [place] CBC panel Auto (Bld)on 07-16 Erythrocyte distribution width (RBC) [Ratio] 25.4 % High 11.5-15.0 [facility] Comment on above: Order Comment: Speci men Type: BLOOD SPECIMENOrdering Facility: [facility] Address: [address] [place] [address] Performed By: #### 5 8410-2 ####[facility]ATORYCLIA [id number] [address] [place] Hematocrit (Bld) [Volume fraction] 33.4 % Low 39.0-51.0 [facility] Comment on above: Order Comment: Speci men Type: BLOOD SPECIMENOrdering Facility: [facility] Address: [address] [place] [address] Performed By: #### 5 8410-2 ####[facility]ATORYCLIA [id number] [place] [id number] [place] Hemoglobin (Bld) [Mass/Vol] 10.9 g/dL Low 13.0-17.0 [facility] Comment on above: Order Comment: Speci men Type: BLOOD SPECIMENOrdering Facility: [facility] Address: [address] [place] [address] Performed By: #### 5 8410-2 ####[facility]ATORYCLIA [id number] [address] [place] MCH (RBC) [Entitic mass] 36.1 pg High 26.0-34.0 [facility] Comment on above: Order Comment: Speci men Type: BLOOD SPECIMENOrdering Facility: [facility] Address: [address] [place] [address] Performed By: #### 5 8410-2 ####[facility]ATORYCLIA [id number] [place] [address] [place] MCHC (RBC) [Mass/Vol] 32.6 g/dL Normal 30.5-36.0 [facility] Comment on above: Order Comment: Speci men Type: BLOOD SPECIMENOrdering Facility: [facility] Address: [address] [place] [address] Performed By: #### 5 8410-2 ####[facility]ATORYCLIA [id number] [address] [place] MCV (RBC) [Entitic vol] 110.6 fL High 80.0-100.0 [facility] Comment on above: Order Comment: Speci men Type: BLOOD SPECIMENOrdering Facility: [facility] Address: [address] [place] [address] Performed By: #### 5 8410-2 ####[facility]ATORYCLIA [id number] [address] [place] Nucleated RBC (Bld) [#/Vol] 0.06 10*3/uL High <0.01 [facility] Comment on above: Order Comment: Speci men Type: BLOOD SPECIMENOrdering Facility: [facility] Address: [address] [place] [address] Performed By: #### 5 8410-2 ####[facility]ATORYCLIA [id number] [address] [place] Platelet mean volume (Bld) [Entitic vol] 11.5 fL Normal 9.0-12.7 [facility] Comment on above: Order Comment: Speci men Type: BLOOD SPECIMENOrdering Facility: [facility] Address: [address] [place] [address] Performed By: #### 5 8410-2 ####[facility]ATORYCLIA [id number] [place] [id number] [facility] Platelets (Bld) [#/Vol] 183 10*3/uL Normal 150-400 [facility] Comment on above: Order Comment: Speci men Type: BLOOD SPECIMENOrdering Facility: [facility] Address: [address] [place] [address] Performed By: #### 5 8410-2 ####[facility]ATORYCLIA [id number] [place] [id number] [place] [facility] [place] RBC (Bld) [#/Vol] 3.02 10*6/uL Low 4.20-6.00 [facility] Comment on above: Order Comment: Speci men Type: BLOOD SPECIMENOrdering Facility: [facility] Address: [address] [place] [address] Performed By: #### 5 8410-2 ####[facility]ATORYCLIA [id number] [place] [id number] [place] WBC (Bld) [#/Vol] 7.88 10*3/uL Normal 3.70-11.00 [facility] Comment on above: Order Comment: Speci men Type: BLOOD SPECIMENOrdering Facility: [facility] Address: [address] [place] [address] Performed By: #### 5 8410-2 ####[facility]ATORYCLIA [id number] [place] [id number] [facility] CONSULT PROGon 07-16-2025 CONSULT PROG HNO ID: [id number] Author: CODIE CASTELLANOS RPh Service: Pharmacy Author Type: Pharmacist Type: Consult Progress Note Filed: 07/16/2025 12:31 Note Text: PHARMACY VANCOMYCIN DOSING NOTE Patient Name: Srini Luis Admission Date: 07/13/2025 Date of Consult: 07/16/2025 Time of Consult: 12:31 PM RECOMMENDATIONS/PLAN: Pharmacy consulted for vancomycin dosing for Srini Luis, a 89 year old male. Vancomycin therapy has been discontinued. Vancomycin level(s) have been discontinued: Yes. The pharmacy vancomycin dosing service will sign off. Thank you for allowing us to participate in this patient's care. Please contact pharmacy if there are questions. Codie Castellanos, [facility] Normal [facility] POTASSIUMon 07-16-2025 Potassium [Moles/Vol] 4.7 mmol/L Normal 3.5-5.1 [facility] Comment on above: Order Comment: Speci men Type: BLOOD SPECIMENOrdering Facility: [facility] Address: [address] [place] [address] Performed By: #### K 1 ####[facility]ATORYCLIA [id number] [place] [id number] [place] aPTT PPPon 07-16-2025 aPTT Coag (PPP) [Time] 52.4 s High 23.0-32.4 [facility] Comment on above: Order Comment: Speci men Type: BLOOD SPECIMENOrdering Facility: [facility] Address: [address] [place] [address] Performed By: #### 1 4979-9 ####[facility]ATORYCLIA [id number] [place] [address] [place] aPTT Coag (PPP) [Time] 75.7 s High 23.0-32.4 [facility] Comment on above: Order Comment: Speci men Type: BLOOD SPECIMENOrdering Facility: [facility] Address: [address] [place] [address] Performed By: #### 1 4979-9 ####[facility]ATORYCLIA [id number] [place] [id number] [facility] aPTT Coag (PPP) [Time] 46.4 s High 23.0-32.4 [facility] Comment on above: Order Comment: Speci men Type: BLOOD SPECIMENOrdering Facility: [facility] Address: [address] [place] [address] Performed By: #### 1 4979-9 ####[facility]ATORYCLIA [id number] [place] [id number] [place] Basic metabolic 2000 panelon 07-15-2025 Anion gap [Moles/Vol] 7 mmol/L Normal 5-16 [facility] Comment on above: Order Comment: Speci men Type: BLOOD SPECIMENOrdering Facility: [facility] Address: [address] [place] [address] Performed By: #### 2 4321-2 ####[facility]ATORYCLIA [id number] [place] [address] [place] Calcium [Mass/Vol] 8.8 mg/dL Normal 8.5-10.5 [facility] Comment on above: Order Comment: Speci men Type: BLOOD SPECIMENOrdering Facility: [facility] Address: [address] [place] [address] Performed By: #### 2 4321-2 ####[facility]ATORYCLIA [id number] [place] [address] [place] Chloride [Moles/Vol] 100 mmol/L Normal 98-107 [facility] Comment on above: Order Comment: Speci men Type: BLOOD SPECIMENOrdering Facility: [facility] Address: [address] [place] [address] Performed By: #### 2 4321-2 ####[facility]ATORYCLIA [id number] [place] [address] [place] CO2 [Moles/Vol] 33 mmol/L High 21-32 [facility] Comment on above: Order Comment: Speci men Type: BLOOD SPECIMENOrdering Facility: [facility] Address: [address] [place] [address] Performed By: #### 2 4321-2 ####[facility]ATORYCLIA [id number] [place] [address] [place] Creatinine [Mass/Vol] 1.28 mg/dL Normal 0.50-1.40 [facility] Comment on above: Order Comment: Speci men Type: BLOOD SPECIMENOrdering Facility: [facility] Address: [address] [place] [address] Result Comment: Kierra ents receiving either N-Acetylcysteine (NAC) or Metamizole prior to venipuncture, may have falsely depressed results. Performed By: #### 2 4321-2 ####[facility]ATORYCLIA [id number] [place] [address] [place] eGFRcr SerPlBld CKD-EPI 2020 53 mL/min/1.73m??? Low >=60 [facility] Comment on above: Order Comment: Specjason men Type: BLOOD SPECIMENOrdering Facility: [facility] Address: [address] [place] [address] Result Comment: Concepción mated Glomerular Filtration Rate [...] actual GFR. Performed By: #### 2 4321-2 ####[facility]ATORYCLIA [id number] [place] [address] [place] Glucose [Mass/Vol] 110 mg/dL High 70-100 [facility] Comment on above: Order Comment: Elfego gilbert Type: BLOOD SPECIMENOrdering Facility: [facility] Address: [address] [place] [address] Result Comment: The [place] Diabetes [employer] (ADA) provides guidance for cutoff values for fasting glucose and random glucose. The ADA defines fasting as no caloric intake for at least 8 hours. Fasting plasma glucose results between 100 to 125 mg/dL indicate increased risk for diabetes (prediabetes). Fasting plasma glucose results greater than or equal to 126 mg/dL meet the criteria for diagnosis of diabetes. In the absence of unequivocal hyperglycemia, results should be confirmed by repeat testing. In a patient with classic symptoms of hyperglycemia or hyperglycemic crisis, random plasma glucose results greater than or equal to 200 mg/dL meet the criteria for diagnosis of diabetes. Reference: Standards of Medical Care in Diabetes 2016, [place] [employer]. Diabetes Care. 2016.39(Suppl 1). Results may be falsely elevated after the administration of Sulfapyridine. Results may be falsely depressed after the administration of Sulfasalazine. Performed By: #### 2 4321-2 ####[facility]ATORYCLIA [id number] [address] STATES OF [facility] Potassium [Moles/Vol] 3.9 mmol/L Normal 3.5-5.1 [facility] Comment on above: Order Comment: Speci men Type: BLOOD SPECIMENOrdering Facility: [facility] Address: [address] [place] [address] Performed By: #### 2 4321-2 ####[facility]ORATORYCLIA [id number] [address] STATES OF [facility] Sodium [Moles/Vol] 140 mmol/L Normal 136-145 [facility] Comment on above: Order Comment: Speci men Type: BLOOD SPECIMENOrdering Facility: [facility] Address: [address] [place] [address] Performed By: #### 2 4321-2 ####[facility]ATORYCLIA [id number] [address] STATES [facility] Urea nitrogen [Mass/Vol] 25 mg/dL Normal 7-26 [facility] Comment on above: Order Comment: Speci men Type: BLOOD SPECIMENOrdering Facility: [facility] Address: [address] [place] [address] Performed By: #### 2 4321-2 ####[facility]ATORYCLIA [id number] [address] CBC panel Auto (Bld)on 07-15 Erythrocyte distribution width (RBC) [Ratio] 25.3 % High 11.5-15.0 [facility] Comment on above: Order Comment: Speci men Type: BLOOD SPECIMENOrdering Facility: [facility] Address: [address] [place] [address] Performed By: #### 5 8410-2 ####[facility]ORATORYCLIA [id number] [place] [address] [place] Hematocrit (Bld) [Volume fraction] 32.8 % Low 39.0-51.0 [facility] Comment on above: Order Comment: Speci men Type: BLOOD SPECIMENOrdering Facility: [facility] Address: [address] [place] [address] Performed By: #### 5 8410-2 ####[facility]ORATORYCLIA [id number] [place] [id number] [place] Hemoglobin (Bld) [Mass/Vol] 10.4 g/dL Low 13.0-17.0 [facility] Comment on above: Order Comment: Speci men Type: BLOOD SPECIMENOrdering Facility: [facility] Address: [address] [place] [address] Performed By: #### 5 8410-2 ####[facility]ATORYCLIA [id number] [place] [address] [place] MCH (RBC) [Entitic mass] 35.3 pg High 26.0-34.0 [facility] Comment on above: Order Comment: Speci men Type: BLOOD SPECIMENOrdering Facility: [facility] Address: [address] [place] [address] Performed By: #### 5 8410-2 ####[facility]ATORYCLIA [id number] [place] [address] [place] MCHC (RBC) [Mass/Vol] 31.7 g/dL Normal 30.5-36.0 [facility] Comment on above: Order Comment: Speci men Type: BLOOD SPECIMENOrdering Facility: [facility] Address: [address] [place] [address] Performed By: #### 5 8410-2 ####[facility]ATORYCLIA [id number] [place] [address] [place] MCV (RBC) [Entitic vol] 111.2 fL High 80.0-100.0 [facility] Comment on above: Order Comment: Speci men Type: BLOOD SPECIMENOrdering Facility: [facility] Address: [address] [place] [address] Performed By: #### 5 8410-2 ####[facility]ATORYCLIA [id number] [place] [id number] [place] Nucleated RBC (Bld) [#/Vol] 0.03 10*3/uL High <0.01 [facility] Comment on above: Order Comment: Speci men Type: BLOOD SPECIMENOrdering Facility: [facility] Address: [address] [place] [address] Performed By: #### 5 8410-2 ####[facility]ATORYCLIA [id number] [place] [id number] [place] Platelet mean volume (Bld) [Entitic vol] 11.6 fL Normal 9.0-12.7 [facility] Comment on above: Order Comment: Speci men Type: BLOOD SPECIMENOrdering Facility: [facility] Address: [address] [place] [address] Performed By: #### 5 8410-2 ####[facility]ATORYCLIA [id number] [place] [address] [place] Platelets (Bld) [#/Vol] 172 10*3/uL Normal 150-400 [facility] Comment on above: Order Comment: Speci men Type: BLOOD SPECIMENOrdering Facility: [facility] Address: [address] [place] [address] Performed By: #### 5 8410-2 ####[facility]ATORYCLIA [id number] [place] [address] [place] RBC (Bld) [#/Vol] 2.95 10*6/uL Low 4.20-6.00 [facility] Comment on above: Order Comment: Speci men Type: BLOOD SPECIMENOrdering Facility: [facility] Address: [address] [place] [address] Performed By: #### 5 8410-2 ####[facility]ATORYCLIA [id number] [place] [id number] [place] WBC (Bld) [#/Vol] 9.24 10*3/uL Normal 3.70-11.00 [facility] Comment on above: Order Comment: Speci men Type: BLOOD SPECIMENOrdering Facility: [facility] Address: [address], [place] [id number] Performed By: #### 5 8410-2 ####[facility]ORATORYCLIA [id number] [place] [address] [place] CONSULT PROGon 07-15-2025 CONSULT PROG HNO ID: [id number] Author: ZORAN ORDONEZ APRN.CNP Service: Cardiovascular Medicine Author Type: Nurse Practitioner Type: Consult Progress Note Filed: 07/16/2025 09:55 Note Text: I assessed and spoke with the patient and family at the bedside. The patient reports feeling rather well today. He had good appetite this afternoon. He is cardiovascular symptom free. After discussing with his family, he has elected to proceed with cardiac catheterization. We discussed the risks, benefits, and alternatives. He has deemed the potential risks to be acceptable. We also discussed possible outcomes and what further treatment would look like. Will make n.p.o. early in the morning on July 17. There is no documented contrast allergy, and the patient does not know anything of this. Please contact the service on Thursday with questions or concerns. Otherwise, see above. Recommend cardiac catheterization and possible coronary revascularization. Alternatives, manner of procedure, risk and benefits were discussed. Risk of procedure includes but not limited to heart attack, stroke, sudden cardiac , damage to the artery, vein, nerve, hematoma, worsening of kidney function requiring temporary or permanent hemodialysis, radiation injury, unknown drug reaction etc. and patient agreed to proceed further with full understanding. Physical Exam Constitutional: Appearance: Normal appearance. HENT: Head: Normocephalic. Eyes: Extraocular Movements: Extraocular movements intact. Pupils: Pupils are equal, round, and reactive to light. Cardiovascular: Rate and Rhythm: Normal rate and regular rhythm. Pulmonary: Effort: Pulmonary effort is normal. Breath sounds: Normal breath sounds. Abdominal: General: Abdomen is flat. Bowel sounds are normal. Palpations: Abdomen is soft. Musculoskeletal: General: Normal range of motion. Cervical back: Normal range of motion. Skin: General: Skin is warm and dry. Capillary Refill: Capillary refill takes less than 2 seconds. Neurological: General: No focal deficit present. Mental Status: He is alert. Normal [facility] aPTT PPPon 07-15-2025 aPTT Coag (PPP) [Time] 43.5 s High 23.0-32.4 [facility] Comment on above: Order Comment: Speci men Type: BLOOD SPECIMENOrdering Facility: [facility] Address: [address] [place] [address] Performed By: #### 1 4979-9 ####[facility]ORATORYCLIA [id number] [place] [id number] [facility] aPTT Coag (PPP) [Time] 55.5 s High 23.0-32.4 [facility] Comment on above: Order Comment: Speci men Type: BLOOD SPECIMENOrdering Facility: [facility] Address: [address] [place] [address] Performed By: #### 1 4979-9 ####[facility]ORATORYCLIA [id number] [place] [id number] [place] [facility] aPTT Coag (PPP) [Time] 69.7 s High 23.0-32.4 [facility] Comment on above: Order Comment: Speci men Type: BLOOD SPECIMENOrdering Facility: [facility] Address: [address] [place] [address] Performed By: #### 1 4979-9 ####[facility]ATORYCLIA [id number] [place] [id number] [place] Basic metabolic 2000 panelon 07-14-2025 Anion gap [Moles/Vol] 10 mmol/L Normal 5-16 [facility] Comment on above: Order Comment: Speci men Type: BLOOD SPECIMENOrdering Facility: [facility] Address: [address] [place] [address] Performed By: #### 2 4321-2, LIPNF, 12595-3, 3016-3, HSTROP ####[facility]ATORYCLIA [id number] [place] [id number] [place] Calcium [Mass/Vol] 8.9 mg/dL Normal 8.5-10.5 [facility] Comment on above: Order Comment: Speci men Type: BLOOD SPECIMENOrdering Facility: [facility] Address: [address] [place] [address] Performed By: #### 2 4321-2, LIPNF, , 3, HSTROP ####[facility]ORATORYCLIA [id number] [place] [id number] [place] Chloride [Moles/Vol] 98 mmol/L Normal 98-107 [facility] Comment on above: Order Comment: Speci men Type: BLOOD SPECIMENOrdering Facility: [facility] Address: [address] [place] [address] Performed By: #### 2 4321-2, LIPNF, , 3, HSTROP ####[facility]ATORYCLIA [id number] [place] [id number] [place] CO2 [Moles/Vol] 31 mmol/L Normal 21-32 [facility] Comment on above: Order Comment: Speci men Type: BLOOD SPECIMENOrdering Facility: [facility] Address: [address] [place] [address] Performed By: #### 2 4321-2, LIPNF, , 3, HSTROP ####[facility]ATORYCLIA [id number] [place] [id number] [place] Creatinine [Mass/Vol] 1.18 mg/dL Normal 0.50-1.40 [facility] Comment on above: Order Comment: Speci men Type: BLOOD SPECIMENOrdering Facility: [facility] Address: [address] [place], [place] [address] Result Comment: Kierra ents receiving either N-Acetylcysteine (NAC) or Metamizole prior to venipuncture, may have falsely depressed results. Performed By: #### 2 4321-2, LIPNF, , 3, HSTROP ####[facility]ORATORYCLIA [id number] [place] [id number] [place] eGFRcr SerPlBld CKD-EPI 2021 59 mL/min/1.73m??? Low >=60 [facility] Comment on above: Order Comment: Elfego gilbert Type: BLOOD SPECIMENOrdering Facility: [facility] Address: [address] [place] [address] Result Comment: Concepción mated Glomerular Filtration Rate [...] reflect actual GFR. Performed By: #### 2 4321-2, LIPNF, 33924-5, 6-3, HSTROP ####[facility] LABORATORYCLIA [id number] [place] [address] [place] Glucose [Mass/Vol] 108 mg/dL High 70-100 [facility] Comment on above: Order Comment: Elfego gilbert Type: BLOOD SPECIMENOrdering Facility: [facility] Address: [address] [place] [address] Result Comment: The [place] Diabetes Association (ADA) provides guidance for cutoff values for fasting glucose and random glucose. The ADA defines fasting as no caloric intake for at least 8 hours. Fasting plasma glucose results between 100 to 125 mg/dL indicate increased risk for diabetes (prediabetes). Fasting plasma glucose results greater than or equal to 126 mg/dL meet the criteria for diagnosis of diabetes. In the absence of unequivocal hyperglycemia, results should be confirmed by repeat testing. In a patient with classic symptoms of hyperglycemia or hyperglycemic crisis, random plasma glucose results greater than or equal to 200 mg/dL meet the criteria for diagnosis of diabetes. Reference: Standards of Medical Care in Diabetes 2016, [place] Diabetes Association. Diabetes Care. 2016.39(Suppl 1). Results may be falsely elevated after the administration of Sulfapyridine. Results may be falsely depressed after the administration of Sulfasalazine. Performed By: #### 2 4321-2, LIPNF, 75178-2, 6-3, HSTROP ####[facility]ATORYCLIA [id number] [place] [id number] [place] Potassium [Moles/Vol] 4.4 mmol/L Normal 3.5-5.1 [facility] Comment on above: Order Comment: Speci men Type: BLOOD SPECIMENOrdering Facility: [facility] Address: [address] [place] [address] Performed By: #### 2 4321-2, LIPNF, 08131-2, 3016-3, HSTROP ####[facility]ATORYCLIA [id number] [place] [id number] [place] Sodium [Moles/Vol] 139 mmol/L Normal 136-145 [facility] Comment on above: Order Comment: Speci men Type: BLOOD SPECIMENOrdering Facility: [facility] Address: [address] [place] [address] Performed By: #### 2 4321-2, LIPNF, 10434-0, 3016-3, HSTROP ####[facility]ORATORYCLIA [id number] [place] [id number] [place] Urea nitrogen [Mass/Vol] 26 mg/dL Normal 7-26 [facility] Comment on above: Order Comment: Speci men Type: BLOOD SPECIMENOrdering Facility: [facility] Address: [address] [place] [address] Performed By: #### 2 4321-2, LIPNF, 92887-9, 3016-3, HSTROP ####[facility]ATORYCLIA [id number] [place] [id number] [place] CBC panel Auto (Bld)on 07-14 Erythrocyte distribution width (RBC) [Ratio] 25.2 % High 11.5-15.0 [facility] Comment on above: Order Comment: Speci men Type: BLOOD SPECIMENOrdering Facility: [facility] Address: [address] [place] [address] Performed By: #### 5 8410-2 ####[facility]ATORYCLIA [id number] [place] [id number] [place] Hematocrit (Bld) [Volume fraction] 32.4 % Low 39.0-51.0 [facility] Comment on above: Order Comment: Speci men Type: BLOOD SPECIMENOrdering Facility: [facility] Address: [address] [place] [address] Performed By: #### 5 8410-2 ####[facility]ATORYCLIA [id number] [place] [address] [place] Hemoglobin (Bld) [Mass/Vol] 10.4 g/dL Low 13.0-17.0 [facility] Comment on above: Order Comment: Speci men Type: BLOOD SPECIMENOrdering Facility: [facility] Address: [address] [place] [address] Performed By: #### 5 8410-2 ####[facility]ATORYCLIA [id number] [place] [address] [place] MCH (RBC) [Entitic mass] 36.0 pg High 26.0-34.0 [facility] Comment on above: Order Comment: Speci men Type: BLOOD SPECIMENOrdering Facility: [facility] Address: [address] [place] [address] Performed By: #### 5 8410-2 ####[facility]ATORYCLIA [id number] [address] [place] MCHC (RBC) [Mass/Vol] 32.1 g/dL Normal 30.5-36.0 [facility] Comment on above: Order Comment: Speci men Type: BLOOD SPECIMENOrdering Facility: [facility] Address: [address] [place] [address] Performed By: #### 5 8410-2 ####[facility]ATORYCLIA [id number] [place] [address] [place] MCV (RBC) [Entitic vol] 112.1 fL High 80.0-100.0 [facility] Comment on above: Order Comment: Speci men Type: BLOOD SPECIMENOrdering Facility: [facility] Address: [address] [place] [address] Performed By: #### 5 8410-2 ####[facility]ATORYCLIA [id number] [place] [id number] [place] Nucleated RBC (Bld) [#/Vol] 0.04 10*3/uL High <0.01 [facility] Comment on above: Order Comment: Speci men Type: BLOOD SPECIMENOrdering Facility: [facility] Address: [address] [place] [address] Performed By: #### 5 8410-2 ####[facility]ATORYCLIA [id number] [place] [address] [place] Platelet mean volume (Bld) [Entitic vol] 11.5 fL Normal 9.0-12.7 [facility] Comment on above: Order Comment: Speci men Type: BLOOD SPECIMENOrdering Facility: [facility] Address: [address] [place] [address] Performed By: #### 5 8410-2 ####[facility]ATORYCLIA [id number] [place] [address] [place] Platelets (Bld) [#/Vol] 173 10*3/uL Normal 150-400 [facility] Comment on above: Order Comment: Speci men Type: BLOOD SPECIMENOrdering Facility: [facility] Address: [address] [place] [address] Performed By: #### 5 8410-2 ####[facility]ATORYCLIA [id number] [place] [address] [place] RBC (Bld) [#/Vol] 2.89 10*6/uL Low 4.20-6.00 [facility] Comment on above: Order Comment: Speci men Type: BLOOD SPECIMENOrdering Facility: [facility] Address: [address] [place] [address] Performed By: #### 5 8410-2 ####[facility]ATORYCLIA [id number] [place] [id number] [place] WBC (Bld) [#/Vol] 12.42 10*3/uL High 3.70-11.00 [facility] Comment on above: Order Comment: Speci men Type: BLOOD SPECIMENOrdering Facility: [facility] Address: [address] [place] [address] Performed By: #### 5 8410-2 ####[facility]ATORYCLIA [id number] [address] [place] Erythrocyte distribution width (RBC) [Ratio] 25.6 % High 11.5-15.0 [facility] Comment on above: Order Comment: Speci men Type: BLOOD SPECIMENOrdering Facility: [facility] Address: [address] [place] [address] Performed By: #### 5 8410-2 ####[facility]ATORYCLIA [id number] [place] [address] [place] Hematocrit (Bld) [Volume fraction] 32.8 % Low 39.0-51.0 [facility] Comment on above: Order Comment: Speci men Type: BLOOD SPECIMENOrdering Facility: [facility] Address: [address] [place] [address] Performed By: #### 5 8410-2 ####[facility]ATORYCLIA [id number] [place] [address] [place] Hemoglobin (Bld) [Mass/Vol] 10.7 g/dL Low 13.0-17.0 [facility] Comment on above: Order Comment: Speci men Type: BLOOD SPECIMENOrdering Facility: [facility] Address: [address] [place] [address] Performed By: #### 5 8410-2 ####[facility]ATORYCLIA [id number] [place] [address] [place] MCH (RBC) [Entitic mass] 36.1 pg High 26.0-34.0 [facility] Comment on above: Order Comment: Speci men Type: BLOOD SPECIMENOrdering Facility: [facility] Address: [address] [place] [address] Performed By: #### 5 8410-2 ####[facility]ATORYCLIA [id number] [address] [place] MCHC (RBC) [Mass/Vol] 32.6 g/dL Normal 30.5-36.0 [facility] Comment on above: Order Comment: Speci men Type: BLOOD SPECIMENOrdering Facility: [facility] Address: [address] [place] [address] Performed By: #### 5 8410-2 ####[facility]ATORYCLIA [id number] [place] [address] [place] MCV (RBC) [Entitic vol] 110.8 fL High 80.0-100.0 [facility] Comment on above: Order Comment: Speci men Type: BLOOD SPECIMENOrdering Facility: [facility] Address: [address] [place] [address] Performed By: #### 5 8410-2 ####[facility]ATORYCLIA [id number] [address] [place] Nucleated RBC (Bld) [#/Vol] 0.04 10*3/uL High <0.01 [facility] Comment on above: Order Comment: Speci men Type: BLOOD SPECIMENOrdering Facility: [facility] Address: [address] [place] [address] Performed By: #### 5 8410-2 ####[facility]ATORYCLIA [id number] [place] [address] [place] Platelet mean volume (Bld) [Entitic vol] 11.3 fL Normal 9.0-12.7 [facility] Comment on above: Order Comment: Speci men Type: BLOOD SPECIMENOrdering Facility: [facility] Address: [address] [place] [address] Performed By: #### 5 8410-2 ####[facility]ATORYCLIA [id number] [place] [address] [place] Platelets (Bld) [#/Vol] 181 10*3/uL Normal 150-400 [facility] Comment on above: Order Comment: Speci men Type: BLOOD SPECIMENOrdering Facility: [facility] Address: [address] [place] [address] Performed By: #### 5 8410-2 ####[facility]ATORYCLIA [id number] [place] [id number] [facility] RBC (Bld) [#/Vol] 2.96 10*6/uL Low 4.20-6.00 [facility] Comment on above: Order Comment: Speci men Type: BLOOD SPECIMENOrdering Facility: [facility] Address: [address] [place] [address] Performed By: #### 5 8410-2 ####[facility]ORYCLIA [id number] [place] [id number] [facility] WBC (Bld) [#/Vol] 11.76 10*3/uL High 3.70-11.00 [facility] Comment on above: Order Comment: Speci men Type: BLOOD SPECIMENOrdering Facility: [facility] Address: [address] [place], [place] [address] Performed By: #### 5 8410-2 ####[facility]ATORYCLIA [id number] [place] [id number] [facility] CNPTOUTREACHon 07-14-2025 CNPTOUTREACH Normal [facility] CONSULTon 07-14-2025 CONSULT HNO ID: [id number] Author: LING THOMPSON MD Service: Cardiovascular Medicine Author Type: Physician Type: Consults Filed: 07/14/2025 12:54 Note Text: CARDIOLOGY CONSULT CONSULTING PHYSICIAN: Armida Parker MD PCP: Ronaldo Pleitez MD ATTENDING: Luis Lan MD STAFF BOIL OFF WORKER: Dr. Thompson REASON FOR CONSULT: acute on chronic chf exac CHIEF COMPLAINT: Lower and upper extremity edema HPI: This is a 89 year old male who follows with Iram Johnson APRN.CNP and previously followed with Dr. 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 Galloway), stroke (Pontine infarction, R>L), 08/2022, diverticulosis, valvular heart disease, hypothyroidism, hyperlipidemia, myasthenia gravis, nocturnal hypoxemia and OA who presents to the ED 07/13/2025 with complaints of worsening lower extremity and upper extremity edema. Patient admits he has had lower extremity edema for years. He states it usually worsens and then gets better. He now notes edema in his upper extremities. Also notes shortness of breath and chills. He denies any chest pain, dizziness/lightheadedness, syncope, palpitations, nausea, vomiting, diarrhea, fevers, or night sweats. ED EVAL: VS: BP 109/64, P94, RR 20, T98.3, SpO2 100% CBC: WBC 16.7, Hgb 11.3/HCT 34.5, PLT 210 BMP: NA 139, K5.5, BUN 32/CR 1.21, Ca 8.8, glucose 196 Magnesium 2.0 NT ProBNP 17,919 Lactate 1.8 Troponin I 74.1 -> 80.6 Blood cultures x 2 CXR: Low lung volumes with crowded bronchovascular markings. Cannot exclude mild interstitial edema or pneumonitis. No pneumothorax or appreciable pleural effusion. Stable cardiomediastinal silhouette. EK bpm, QTc 500, sinus rhythm, RBBB, nonspecific ST-T wave abnormalities. In ED patient received IV Lasix 40 mg x 1, and IV antibiotics. 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 ([facility]) 12/01/2022 CVA (cerebral vascular accident) ([facility]) 08/22/2022 Diverticulosis H/O echocardiogram 09/16/2022 EF 68?5 %, mod concentric LVH, mod TR, mild-mod MR with mod MAC History of anemia History of CVA (cerebrovascular accident) 08/22/2022 Pontine infarction, R>L History of stress test 10/12/2024 EF 43%, mild ischemia involving the apex 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 Vitamin D deficiency 07/11/2020 PAST SURGICAL HISTORY: PAST SURGICAL HISTORY Procedure Laterality Date ANKLE RIGHT OP SURGERY Right 12/18/2020 Dr Arreola [facility] ARTHROPLASTY TOTAL SHOULDER 11/09/2008 right ARTHROSCOPY OF JOINT UNLISTED 1999 [place] right CABG (4) VEIN GRAFTS AND ARTERIAL GRAFT(S) 07/21/2021 In [facility] COLONOSCOPY FLX DX W/COLLJ SPEC WHEN PFRMD 09/01/2005 Colonoscopy COLONOSCOPY FLX DX W/COLLJ SPEC WHEN PFRMD 09/27/2015 Colonoscopy REMOVAL OF TONSILS,<12 Y/O S $ CELESTINA (more content not included)... [facility] CONSULT PROGon 07-14-2025 CONSULT PROG HNO ID: [id number] Author: LING THOMPSON MD Service: Cardiovascular Medicine Author Type: Physician Type: Consult Progress Note Filed: 07/14/2025 14:47 Note Text: Discussed with the patient daughter at the bedside regarding the low EF 31% compared to 55% in 2022. Discussed about further plans for left heart cath. Given his history of CABG and low EF patient might have underlying progressive CAD leading to low EF. Daughter will discuss with the siblings and will let us know by weekend whether he she wants to proceed with a left heart cath or not given the patient's age of 89. [facility] CONSULT PROG HNO ID: [id number] Author: LING THOMPSON MD Service: Cardiovascular Medicine Author Type: Physician Type: Consult Progress Note Filed: 07/14/2025 12:56 Note Text: Moderate to severe TR with moderate pulmonary hypertension-continue diuretics for now. [facility] ECHOon 07-14-2025 Echocardiography Echocardiography Rep ort: Transthoracic Echo [facility] Date of service: 07/14/2025 9:05:21 AM Ordering physician: ARMIDA PARKER Exam indication: Re-evaluation of known heart failure with a change in clinical status without change in med/diet Technologist: Abran Joy [facility] Interpreting physician: Rafael Monaco MD PATIENT: Name: MR. SRINI LUIS : 1935 Age: 89 years Gender: M History of arrhythmia, heart failure with hospitalization, coronary artery disease, hypertension and dyslipidemia. Previous cardiovascular interventions: CABG (2020) BIV pacemaker implant (2021) Primary rhythm: atrial fib. Secondary rhythm: RBBB. Height: 167.60 cm BSA: 1.96 m Weight: 82.56 kg BMI: 29.4 kg/m Heart rate 104 bpm Blood pressure 110/60 mmHg Technically difficult exam due to suboptimal positioning. Color Doppler was utilized to interrogate the cardiac valves assessed and spectral Doppler was utilized to determine the flow velocities and pressure gradients reported in this exam. MEASUREMENTS: Value Indexed Normal Max aortic dimension 4.0 cm Ao < 3.8 Left atrium diameter 5.1 cm (2D) LAd < 4 Left atrial volume 60 ml (Samano's) 31 ml/m Anjana <= 34 LV ID (diastole) 5.3 cm (2D) 2.70 cm/m LV ID (systole) 4.2 cm (2D) 2.14 cm/m IVS, leaflet tips 1.3 cm (2D) Posterior wall thickness 1.2 cm (2D) Left ventricular mass 272 g (2D) 139 g/m LV stroke volume 41 ml (2D biplane) LVOT stroke volume 42 ml 22 ml/m LV end diastolic volume 133 ml (2D biplane) 67.7 ml/m 34<=EDVi<75 LV end systolic volume 91 ml (2D biplane) 46.7 ml/m Ejection Fraction 31 % (2D biplane) EF > 52 FINDINGS: LEFT VENTRICLE The left ventricle is normal in size. There is mild concentric left ventricular hypertrophy. Left ventricular systolic function is moderately decreased. Left ventricular diastolic function was not evaluated due to an arrhythmia. Definity contrast used for endocardial border detection. Wall Motion: The entire lateral wall, inferior wall, and basal anterior segment are severely hypokinetic. The mid and distal anterior wall, entire septum, apical inferior segment, and apex are mildly hypokinetic. RIGHT VENTRICLE The right ventricle is moderately dilated. Pacer wires are noted in the right ventricle. Right ventricular systolic function is moderately decreased. RV systolic tissue Doppler velocity is 6.1 cm/s. Tricuspid annular displacement is 1.2 cm. Estimated right ventricular systolic pressure is 44 mmHg plus right atrial pressure. Estimated right atrial pressure is not included as the IVC was not seen. LEFT ATRIUM The left atrial cavity is normal in size. RIGHT ATRIUM The right atrial cavity is normal in size. Pacer wires are noted in the right atrium. MITRAL VALVE Platinum mitral valve. There is moderate mitral annular calcification. There is no mitral valve stenosis. There is mild (1+) mitral valve regurgitation due to apical tethering of normal mitral leaflet caused by LV enlargement. There is no thickening. There is mild calcification. The peak valve gradient is 4 mmHg. The mean valve gradient is 2 mmHg. The pressure half time is 34 msec. The peak mitral E/A ratio is 1.96. The mitral flow deceleration time is 116 msec. TRICUSPID VALVE Platinum tricuspid valve. There is no tricuspid valve stenosis. There is moderately severe (3+) tricuspid valve regurgitation. There is no calcification. AORTIC VALVE There is mild aortic valve stenosis. There is trace aortic valve regurgitation. Tricuspid aortic valve. There is moderate thickening. There is moderate calcification. The peak gradient is 9 mmHg (peak velocity = 148.2 cm/s). The mean gradient is 5 mmHg. The LVOT mean velocity is 43.8 cm/s. The LVOT diameter is 2.1 cm. The aortic VTI is 26.9 cm. The mean velocity in the aortic valve is 104.4 cm/s. The dimensionless valve index is 0.45. AV area is 1.56 cm (0.80 cm /m ) by continuity, VTI. The LVOT stroke volume index is 22 ml/m . PULMONIC VALVE There is no pulmonic valve stenosis. There is trace pulmonic valve regurgitation. There is no calcification. The peak gradient is 2 mmHg. AORTA The visualized aorta is dilated. Measurements - Aortic valve annulus 2.5 cm. Sinus: 4.0 cm. Sinotubular junction 3.6 cm. Mid ascending aorta 4.0 cm. INTERATRIAL SEPTUM The interatrial septum is unseen or not interrogated. INTERVENTRICULAR SEPTUM There is no flow through the interventricular septum as detected by Doppler. PERICARDIUM There is an epicardial fat pad. CONCLUSIONS: - Technically difficult exam due to suboptimal positioning. - Exam indication: Re-evaluation of known heart failure with a change in clinical status without change in med/diet - The left ventricle is normal in size. There is mild concentric left ventricular hypertrophy. Left ventricular systolic function is moderate-severely decreased. EF (more content not included)... Normal [facility] HIGH SENSITIVITY TROPONIN Io n 07-14-2025 Tropinin I.cardiac panel High sensitivity method 64.8 pg/mL High 0.0-54.0 [facility] Comment on above: Order Comment: Speci men Type: BLOOD SPECIMENOrdering Facility: [facility] Address: [address] [place] [address] Result Comment: CRIT ICAL Performed By: #### H STROP ####[facility]ORATORYCLIA [id number] [facility] [place] [address] [place] Tropinin I.cardiac panel High sensitivity method 90.6 pg/mL High 0.0-54.0 [facility] Comment on above: Order Comment: Julijason gilbert Type: BLOOD SPECIMENOrdering Facility: [facility] Address: [address] [place] [address] Result Comment: CRIT ICAL Performed By: #### 2 4321-2, LIPNF, 54804-0, 3016-3, HSTROP ####[facility]ORATORYCLIA [id number] [place] [id number] [facility] [place] HbA1c (Bld)on 07-14-2025 Average glucose Estimated from glycated hemoglobin (Bld) [Mass/Vol] 97 mg/dL Normal [facility] Comment on above: Order Comment: Elfego vladimir Type: BLOOD SPECIMENOrdering Facility: [facility] Address: [address] [place] [address] Result Comment: eAG: (Estimated average glucose) is a calculated value from HgbA1c and is sales support representative of the average blood glucose level in the last 2-3 month period. Performed By: #### 5 5454-3 ####[facility] LABCLIA [id number] [address] [place] [facility] HbA1c (Bld) [Mass fraction] 5.0 % Normal 4.3-5.6 [facility] Comment on above: Order Comment: Elfego gilbert Type: BLOOD SPECIMENOrdering Facility: [facility] Address: [address] [place] [address] Result Comment: [place] Diabetes Association guidelines indicate that patients with HgbA1c in the range 5.7-6.4% are at increased risk for development of diabetes, and intervention by lifestyle modification may be beneficial. HgbA1c greater or equal to 6.5% is considered diagnostic of diabetes. Performed By: #### 5 5454-3 ####[facility] LABCLIA [id number] [place] [id number] [place] LIPID PANEL, NONFASTINGon Cholesterol [Mass/Vol] 88 mg/dL Normal 0-199 [facility] Comment on above: Order Comment: Speci men Type: BLOOD SPECIMENOrdering Facility: [facility] Address: [address] [place] [address] Result Comment: <200 mg/dL, Desirable 200-239 mg/dL, Borderline high >239 mg/dL, High Performed By: #### 2 4321-2, LIPNF, 30308-6, 6-3, HSTROP ####[facility]ATORYCLIA [id number] [place] [id number] [facility] [place] HDL CHOLESTEROL, NF 49 mg/dL Normal >40 [facility] Comment on above: Order Comment: Speci men Type: BLOOD SPECIMENOrdering Facility: [facility] Address: [address] [place] [address] Result Comment: 40-5 9 mg/dL, Acceptable >59 mg/dL, High: Negative risk factor for coronary heart disease <40 mg/dL, Low: Positive risk factor for coronary heart disease Performed By: #### 2 4321-2, LIPNF, , 3015-3, HSTROP ####[facility]ATORYCLIA [id number] [address] LDL CHOLESTEROL CALCULATED, NF 28 mg/dL Normal <100 [facility] Comment on above: Order Comment: Speci men Type: BLOOD SPECIMENOrdering Facility: [facility] Address: [address] [place] [address] Result Comment: <100 mg/dL, Optimal 100-129 mg/dL, Near optimal/above optimal 130-159 mg/dL, Borderline high 160-189 mg/dL, High >189 mg/dL, Very high Secondary prevention optimal LDL Cholesterol levels are recommended to be <70 mg/dL LDL cholesterol is calculated using the Han-NIH equation. Performed By: #### 2 4321-2, LIPNF, 16128-7, 3015-3, HSTROP ####[facility]ATORYCLIA [id number] [place] [id number] [facility] [place] LDL/HDL RATIO, NF 0.57 mg/dL Normal <2.54 [facility] Comment on above: Order Comment: Speci men Type: BLOOD SPECIMENOrdering Facility: [facility] Address: [address] [id number] Result Comment: Katie barrientos: 1. National Cholesterol Education Program ATP III Guideline At-A-Glance Quick Desk Reference: National Heart, Lung, and Blood [place]. National Institutes of Health. 2001: NIH Publication No. 01-3305. 2. An International Atherosclerosis Society position paper: global recommendations for the management of dyslipidemia: executive summary, Atherosclerosis. 2014: 232(2):410-413. Performed By: #### 2 4321-2, LIPNF, 60521-9, 3016-3, HSTROP ####[facility]ATORYCLIA [id number] [address] [place] NON HDL CHOL, NF 39 mg/dL Normal <130 [facility] Comment on above: Order Comment: Speci men Type: BLOOD SPECIMENOrdering Facility: [facility] Address: [address] [place] [address] Result Comment: <130 mg/dL, Optimal 130-159 mg/dL, Near optimal/above optimal 160-189 mg/dL, Borderline high 190-219 mg/dL, High >219 mg/dL, Very high Secondary prevention optimal non HDL Cholesterol levels are recommended to be <100 mg/dL Performed By: #### 2 4321-2, LIPNF, 01049-1, 3016-3, HSTROP ####[facility]ATORYCLIA [id number] [place] [address] [place] T CHOL/HDL RATIO NF 1.80 mg/dL Normal <5.10 [facility] Comment on above: Order Comment: Speci men Type: BLOOD SPECIMENOrdering Facility: [facility] Address: [address] [id number] Performed By: #### 2 4321-2, LIPNF, 45073-7, 3016-3, HSTROP ####[facility]ATORYCLIA [id number] [place] [id number] [place] TRIGLYCERIDES, NF 37 mg/dL Normal 30-149 [facility] Comment on above: Order Comment: Speci men Type: BLOOD SPECIMENOrdering Facility: [facility] Address: [address] [place] [address] Result Comment: <150 mg/dL, Normal 150-199 mg/dL, Borderline high 200-499 mg/dL, High >499 mg/dL, Very high Performed By: #### 2 4321-2, LIPNF, 09763-4, 3016-3, HSTROP ####[facility]ORYCLIA [id number] [place] [id number] [place] VLDL CHOLESTEROL, NF 5 mg/dL Normal <30 [facility] Comment on above: Order Comment: Julii vladimir Type: BLOOD SPECIMENOrdering Facility: [facility] Address: [address] [place] [address] Performed By: #### 2 4321-2, LIPNF, 93306-5, 6-3, HSTROP ####[facility]ORYCLIA [id number] [place] [id number] [place] Magnesium SerPl-mCncon 07-14 Magnesium [Mass/Vol] 2.2 mg/dL Normal 1.6-2.6 [facility] Comment on above: Order Comment: Elfego gilbert Type: BLOOD SPECIMENOrdering Facility: [facility] Address: [address] [place] [address] Performed By: #### 2 4321-2, LIPNF, 47898-8, 6-3, HSTROP ####[facility]ATORYCLIA [id number] [place] [id number] [place] PT panel Coag (PPP)on 2024 INR Coag (PPP) [Relative time] 1.3 {INR} Normal 0.9-1.3 [facility] Comment on above: Order Comment: Julii vladimir Type: BLOOD SPECIMENOrdering Facility: [facility] Address: [address] [place] [address] Result Comment: Tanna min K Antagonist (VKA) Therapeutic Range: INR 2 to 3 (Target INR of 2.5) Note: For patients treated with VKA drugs, such as warfarin, the [place] [employer] 2012 Guideline recommends a therapeutic INR range of 2 to 3 (target INR of 2.5). This recommendation includes high-risk patients with antiphospholipid syndrome with previous arterial or venous thromboembolism, current-generation mechanical or bioprosthetic aortic heart valve replacement. Note: Patients with mechanical aortic valve replacement and additional risk factors for thromboembolic events (atrial fibrillation, previous thromboembolism, LV dysfunction, hypercoagulable conditions) or an older generation mechanical AVR (i.e., ball in-Cage) or any mechanical MVR should have a INR therapeutic range of 2.5 to 3.5 (target INR of 3). Alo PEPPER, et al. Chest 2012, 141:7S-47S Sakina RA, et al. JAC 2017, 70: 252-289 Performed By: #### 3 4528-0, 98399-4 ####[facility]ATORYCLIA [id number] [place] [address] [place] PT Coag (PPP) [Time] 14.3 s High 9.7-13.0 [facility] Comment on above: Order Comment: Speci men Type: BLOOD SPECIMENOrdering Facility: [facility] Address: [address] [place] [address] Performed By: #### 3 4528-0, 48809-7 ####[facility]ATORYCLIA [id number] [place] [address] [place] STAPHYLOCOCCUS AUREUS AND MR SA SCREEN, PCR, NASALon 07-14-2025 S. aureus and MRSA panel OLIVER+probe (Nose) Methicillin-RESISTANT Staphylococcus aureus (MRSA) Detected Abnormal Not Detected [facility] Comment on above: Order Comment: Speci men Type: SWABOrdering Facility: [facility] Address: [address] [place] [address] Performed By: #### S APCR ####[facility]ATORYCLIA [id number] [place] [address] [place] TSH SerPl-aCncon 07-14-2025 TSH Qn 9.368 m[IU]/L High 0.358-3.74 0 [facility] Comment on above: Order Comment: Speci men Type: BLOOD SPECIMENOrdering Facility: [facility] Address: [address] [place] [address] Result Comment: 3rd generation ultra sensitive TSH. Performed By: #### 2 4321-2, LIPNF, 10499-3, 3016-3, HSTROP ####[facility]ATORYCLIA [id number] [place] [address] [place] US ARM VEIN DVT UNL VAS LABo n 07-14-2025 US ARM VEIN DVT UNL VAS LAB Non-Invasive Vascular Laboratory [facility] Upper Extremity Venous Duplex Unilateral - Right Date of service/time: 07/14/2025 8:01:43 AM Name: MR. SRINI LUIS Date: 1935 Age: 89 years Gender: M Clinical Indication Right arm swelling. TECHNIQUE -------- A venous duplex ultrasound examination was performed, including grayscale imaging with compression maneuvers and color Doppler and spectral Doppler examination with augmentation maneuvers and response to respiration of the below mentioned veins. FINDINGS -------- RIGHT SIDE Internal jugular vein Doppler: abnormal flow. Compression: abnormal. Subclavian vein Doppler: pulsatile flow. Compression: normal. Axillary vein Doppler: pulsatile flow. Compression: normal. Brachial vein Doppler: pulsatile flow. Compression: normal. Basilic vein Compression: normal. Cephalic vein Compression: normal. Innominate vein Doppler: pulsatile flow. Radial vein Compression: normal. Ulnar vein Compression: normal. LEFT SIDE Subclavian vein Doppler: normal flow. Compression: normal. Pacemaker leads visualized. 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 The distal IJV is patent with colateral flow visualized. Negative for acute deep vein thrombosis in the subclavian vein, axillary vein, brachial vein, innominate vein, radial vein and ulnar vein. RIGHT SIDE - SUPERFICIAL VEINS Negative for superficial thrombophlebitis in the basilic vein and cephalic vein. LEFT SIDE - DEEP VEINS Spontaneous and respirophasic flow noted in the subclavian vein. Technologist: Obdulia Mackey Ordering physician: ARMIDA PARKER Interpreting physician: Jesus Manuel Fairchild MD Final [email or web address] Medical Image : [id number] See Link below for Image Normal [facility] Urinalysis complete panel (U )on 07-14-2025 Bacteria LM.HPF (Urine sed) [#/Area] None Seen Normal None Seen [facility] Comment on above: Order Comment: Speci men Type: URINE SPECIMENOrdering Facility: [facility] Address: [address] [place] [address] Performed By: #### 2 4356-8 ####[facility]ATORYCLIA [id number] [place] [address] [place] Bilirubin Ql (U) Negative Normal Negative [facility] Comment on above: Order Comment: Speci men Type: URINE SPECIMENOrdering Facility: [facility] Address: [address] [place] [address] Performed By: #### 2 4356-8 ####[facility]ATORYCLIA [id number] [place] [address] [place] Clarity (Unsp spec) Clear Normal Clear [facility] Comment on above: Order Comment: Speci men Type: URINE SPECIMENOrdering Facility: [facility] Address: [address] [place] [address] Performed By: #### 2 4356-8 ####[facility]ATORYCLIA [id number] [place] [address] [place] Color (U) Yellow Normal Yellow [facility] Comment on above: Order Comment: Speci men Type: URINE SPECIMENOrdering Facility: [facility] Address: [address] [place] [address] Performed By: #### 2 4356-8 ####[facility]ATORYCLIA [id number] [address] [place] Epithelial cells LM.HPF (Urine sed) [#/Area] Few Normal [facility] Comment on above: Order Comment: Speci men Type: URINE SPECIMENOrdering Facility: [facility] Address: [address] [place] [address] Performed By: #### 2 4356-8 ####[facility]ORYCLIA [id number] [address] [place] Glucose Test strip (U) [Mass/Vol] Negative Normal Negative [facility] Comment on above: Order Comment: Speci men Type: URINE SPECIMENOrdering Facility: [facility] Address: [address] [place] [address] Performed By: #### 2 4356-8 ####[facility]ATORYCLIA [id number] [address] [place] Hemoglobin Ql (U) Negative Normal Negative [facility] Comment on above: Order Comment: Speci men Type: URINE SPECIMENOrdering Facility: [facility] Address: [address] [place] [address] Performed By: #### 2 4356-8 ####[facility]ORYCLIA [id number] [place] [address] [place] Hyaline casts (Urine sed) [#/Area] 1-3 /LPF Abnormal 0 /LPF [facility] Comment on above: Order Comment: Speci men Type: URINE SPECIMENOrdering Facility: [facility] Address: [address] [place] [address] Performed By: #### 2 4356-8 ####[facility]ORYCLIA [id number] [address] [place] Ketones Ql (U) Negative Normal Negative [facility] Comment on above: Order Comment: Speci men Type: URINE SPECIMENOrdering Facility: [facility] Address: [address] [place] [address] Performed By: #### 2 4356-8 ####[facility]ORYCLIA [id number] [address] Leukocyte esterase Test strip Ql (U) Negative Normal Negative [facility] Comment on above: Order Comment: Speci men Type: URINE SPECIMENOrdering Facility: [facility] Address: [address] [place] [address] Performed By: #### 2 4356-8 ####[facility]ATORYCLIA [id number] [place] [address] [place] Nitrite Ql (U) Negative Normal Negative [facility] Comment on above: Order Comment: Speci men Type: URINE SPECIMENOrdering Facility: [facility] Address: [address] [place] [address] Performed By: #### 2 4356-8 ####[facility]ORYCLIA [id number] [address] [place] pH (U) 6.0 [pH] Normal 5.0-8.0 [facility] Comment on above: Order Comment: Speci men Type: URINE SPECIMENOrdering Facility: [facility] Address: [address] [place] [address] Performed By: #### 2 4356-8 ####[facility]ORYCLIA [id number] [address] [place] Protein (U) [Mass/Vol] Negative Normal Negative [facility] Comment on above: Order Comment: Speci men Type: URINE SPECIMENOrdering Facility: [facility] Address: [address] [place] [address] Performed By: #### 2 4356-8 ####[facility]ORYCLIA [id number] [place] [address] [place] RBC LM.HPF (Urine sed) [#/Area] 0-3 /HPF Normal 0-3 /HPF [facility] Comment on above: Order Comment: Speci men Type: URINE SPECIMENOrdering Facility: [facility] Address: [address] [place] [address] Performed By: #### 2 4356-8 ####[facility]ATORYCLIA [id number] [address] [place] Specific gravity (U) [Rel density] 1.011 Normal 1.005-1.03 0 [facility] Comment on above: Order Comment: Speci men Type: URINE SPECIMENOrdering Facility: [facility] Address: [address] [place] [address] Performed By: #### 2 4356-8 ####[facility]ATORYCLIA [id number] [address] Urobilinogen Ql (U) Negative Normal Negative [facility] Comment on above: Order Comment: Speci men Type: URINE SPECIMENOrdering Facility: [facility] Address: [address] [place] [address] Performed By: #### 2 4356-8 ####[facility]ATORYCLIA [id number] [address] [place] WBC LM.HPF (Urine sed) [#/Area] 0-5 /HPF Normal 0-5 /HPF [facility] Comment on above: Order Comment: Speci men Type: URINE SPECIMENOrdering Facility: [facility] Address: [address] [place] [address] Performed By: #### 2 4356-8 ####[facility]ATORYCLIA [id number] [address] [place] aPTT PPPon 07-14-2025 aPTT Coag (PPP) [Time] 56.1 s High 23.0-32.4 [facility] Comment on above: Order Comment: Speci men Type: BLOOD SPECIMENOrdering Facility: [facility] Address: [address] [place] [address] Performed By: #### 1 4979-9 ####[facility]ATORYCLIA [id number] [address] aPTT Coag (PPP) [Time] 37.7 s High 23.0-32.4 [facility] Comment on above: Order Comment: Speci men Type: BLOOD SPECIMENOrdering Facility: [facility] Address: [address] [place] [address] Performed By: #### 3 4528-0, 24734-2 ####[facility]ATORYCLIA [id number] [address] STATES OF [facility] Bacteria Bld Culton 07-13-20 25 Bacteria identified Cx Nom (Bld) CULTURE, BLOOD: No growth 5 days Normal [facility] Comment on above: Performed By: #### 6 00-7 ####[facility]ATORYCLIA [id number] [address] Bacteria identified Cx Nom (Bld) CULTURE, BLOOD: No growth 5 days Normal [facility] Comment on above: Performed By: #### 6 00-7 ####[facility]ORYCLIA [id number] [address] [place] CBC W Auto Differential pane l (Bld)on 07-13-2025 Basophils (Bld) [#/Vol] 0.03 10*3/uL Normal <0.11 [facility] Comment on above: Order Comment: Speci men Type: BLOOD SPECIMENOrdering Facility: [facility] Address: [address] [place] [address] Performed By: #### 5 7021-8 ####[facility]ATORYCLIA [id number] [address] [place] Basophils/100 WBC (Bld) 0.2 % Normal [facility] Comment on above: Order Comment: Speci men Type: BLOOD SPECIMENOrdering Facility: [facility] Address: [address] [place] [address] Performed By: #### 5 7021-8 ####[facility]ATORYCLIA [id number] [address] STATES OF [facility] Differential cell count method Nom (Bld) Auto Normal [facility] Comment on above: Order Comment: Speci men Type: BLOOD SPECIMENOrdering Facility: [facility] Address: [address] [place] [address] Performed By: #### 5 7021-8 ####[facility]ATORYCLIA [id number] [place] [address] [place] Eosinophils (Bld) [#/Vol] 10*3/uL Normal <0.46 [facility] Comment on above: Order Comment: Speci men Type: BLOOD SPECIMENOrdering Facility: [facility] Address: [address] [place] [address] Performed By: #### 5 7021-8 ####[facility]ATORYCLIA [id number] [place] [address] [place] Eosinophils/100 WBC (Bld) 0.1 % Normal [facility] Comment on above: Order Comment: Speci men Type: BLOOD SPECIMENOrdering Facility: [facility] Address: [address] [place] [address] Performed By: #### 5 7021-8 ####[facility]ATORYCLIA [id number] [place] [address] [place] Erythrocyte distribution width (RBC) [Ratio] 26.2 % High 11.5-15.0 [facility] Comment on above: Order Comment: Speci men Type: BLOOD SPECIMENOrdering Facility: [facility] Address: [address] [place] [address] Performed By: #### 5 7021-8 ####[facility]ATORYCLIA [id number] [place] [address] [place] Hematocrit (Bld) [Volume fraction] 34.5 % Low 39.0-51.0 [facility] Comment on above: Order Comment: Speci men Type: BLOOD SPECIMENOrdering Facility: [facility] Address: [address] [place] [address] Performed By: #### 5 7021-8 ####[facility]ATORYCLIA [id number] [place] [address] [place] Hemoglobin (Bld) [Mass/Vol] 11.3 g/dL Low 13.0-17.0 [facility] Comment on above: Order Comment: Speci men Type: BLOOD SPECIMENOrdering Facility: [facility] Address: [address] [place] [address] Performed By: #### 5 7021-8 ####[facility]ATORYCLIA [id number] [address] [place] Immature granulocytes (Bld) [#/Vol] 0.10 10*3/uL High <0.10 [facility] Comment on above: Order Comment: Speci men Type: BLOOD SPECIMENOrdering Facility: [facility] Address: [address] [place] [address] Performed By: #### 5 7021-8 ####[facility]ATORYCLIA [id number] [address] Immature granulocytes/100 WBC (Bld) 0.6 % Normal [facility] Comment on above: Order Comment: Speci men Type: BLOOD SPECIMENOrdering Facility: [facility] Address: [address] [place] [address] Performed By: #### 5 7021-8 ####[facility]ATORYCLIA [id number] [address] [place] Lymphocytes (Bld) [#/Vol] 0.66 10*3/uL Low 1.00-4.00 [facility] Comment on above: Order Comment: Speci men Type: BLOOD SPECIMENOrdering Facility: [facility] Address: [address] [place] [address] Performed By: #### 5 7021-8 ####[facility]ATORYCLIA [id number] [address] [place] Lymphocytes/100 WBC (Bld) 3.9 % Normal [facility] Comment on above: Order Comment: Speci men Type: BLOOD SPECIMENOrdering Facility: [facility] Address: [address] [place] [address] Performed By: #### 5 7021-8 ####[facility]ATORYCLIA [id number] [place] [address] [place] MCH (RBC) [Entitic mass] 37.2 pg High 26.0-34.0 [facility] Comment on above: Order Comment: Speci men Type: BLOOD SPECIMENOrdering Facility: [facility] Address: [address] [place] [address] Performed By: #### 5 7021-8 ####[facility]ATORYCLIA [id number] [place] [address] [place] MCHC (RBC) [Mass/Vol] 32.8 g/dL Normal 30.5-36.0 [facility] Comment on above: Order Comment: Speci men Type: BLOOD SPECIMENOrdering Facility: [facility] Address: [address] [place] [address] Performed By: #### 5 7021-8 ####[facility]ATORYCLIA [id number] [place] [address] [place] MCV (RBC) [Entitic vol] 113.5 fL High 80.0-100.0 [facility] Comment on above: Order Comment: Speci men Type: BLOOD SPECIMENOrdering Facility: [facility] Address: [address] [place] [address] Performed By: #### 5 7021-8 ####[facility]ATORYCLIA [id number] [place] [address] [place] Monocytes (Bld) [#/Vol] 1.08 10*3/uL High <0.87 [facility] Comment on above: Order Comment: Speci men Type: BLOOD SPECIMENOrdering Facility: [facility] Address: [address] [place] [address] Performed By: #### 5 7021-8 ####[facility]ATORYCLIA [id number] [place] [address] [place] Monocytes/100 WBC (Bld) 6.5 % Normal [facility] Comment on above: Order Comment: Speci men Type: BLOOD SPECIMENOrdering Facility: [facility] Address: [address] [place] [address] Performed By: #### 5 7021-8 ####[facility]ATORYCLIA [id number] [place] [address] [place] Neutrophils (Bld) [#/Vol] 14.83 10*3/uL High 1.45-7.50 [facility] Comment on above: Order Comment: Speci men Type: BLOOD SPECIMENOrdering Facility: [facility] Address: [address] [place] [address] Performed By: #### 5 7021-8 ####[facility]ATORYCLIA [id number] [place] [address] [place] Neutrophils/100 WBC (Bld) 88.7 % Normal [facility] Comment on above: Order Comment: Speci men Type: BLOOD SPECIMENOrdering Facility: [facility] Address: [address] [place] [address] Performed By: #### 5 7021-8 ####[facility]ATORYCLIA [id number] [place] [address] [place] Nucleated RBC (Bld) [#/Vol] 0.06 10*3/uL High <0.01 [facility] Comment on above: Order Comment: Speci men Type: BLOOD SPECIMENOrdering Facility: [facility] Address: [address] [place] [address] Performed By: #### 5 7021-8 ####[facility]ATORYCLIA [id number] [place] [address] [place] Nucleated RBC/100 WBC (Bld) [Ratio] 0.4 /100 WBC Normal [facility] Comment on above: Order Comment: Speci men Type: BLOOD SPECIMENOrdering Facility: [facility] Address: [address] [place] [address] Performed By: #### 5 7021-8 ####[facility]ATORYCLIA [id number] [place] [address] [place] Platelet mean volume (Bld) [Entitic vol] 12.2 fL Normal 9.0-12.7 [facility] Comment on above: Order Comment: Speci men Type: BLOOD SPECIMENOrdering Facility: [facility] Address: [address] [place] [address] Performed By: #### 5 7021-8 ####[facility]ORATORYCLIA [id number] [place] [id number] [facility] Platelets (Bld) [#/Vol] 210 10*3/uL Normal 150-400 [facility] Comment on above: Order Comment: Speci men Type: BLOOD SPECIMENOrdering Facility: [facility] Address: [address] [place] [address] Performed By: #### 5 7021-8 ####[facility] LABORATORYCLIA [id number] [place] [address] [facility] [place] RBC (Bld) [#/Vol] 3.04 10*6/uL Low 4.20-6.00 [facility] Comment on above: Order Comment: Speci men Type: BLOOD SPECIMENOrdering Facility: [facility] Address: [address] [place] [address] Performed By: #### 5 7021-8 ####[facility] LABORATORYCLIA [id number] [address] OF [facility] WBC (Bld) [#/Vol] 16.71 10*3/uL High 3.70-11.00 [facility] Comment on above: Order Comment: Speci men Type: BLOOD SPECIMENOrdering Facility: [facility] Address: [address] [place] [address] Performed By: #### 5 7021-8 ####[facility] LABORATORYCLIA [id number] [place] [id number] [facility] CONSULT PROGon 07-13-2025 CONSULT PROG HNO ID: [id number] Author: ANDREY BLANCA RPh Service: Pharmacy Author Type: Pharmacist Type: Consult Progress Note Filed: 07/13/2025 18:25 Note Text: PHARMACY VANCOMYCIN DOSING NOTE Patient Name: Srini Luis Admission Date: 07/13/2025 Date of Consult: 07/13/2025 Time of Consult: 6:23 PM Indication: Skin/soft tissue infection Goal Range: 10-20 mcg/mL RECOMMENDATIONS/PLAN: Pharmacy consulted for vancomycin dosing for Srini Luis, a 89 year old male. 1. Patient is currently ordered Vancomycin 1.25 g IV q24h. Today is day 1 of therapy. 2. No vancomycin level has been drawn for this dosing regimen. 3. The present dose of vancomycin is the recommended dosage for this patient at this time. Continue therapy as prescribed. 4. The next vancomycin level will be ordered for 07/16 1700 unless clinically indicated sooner. (Pharmacy will order) We will follow patient renal function, vancomycin levels and doses with you during the course of therapy. Additional recommendations will appear in follow up notes. If you have any questions, please contact pharmacy at [phone]. Age: [age] year old Allergies: ALLERGIES Allergen Reactions Simvastatin Other: See Comments Elevated CK Last 3 Encounter Wt Readings: Date: Wt: 07/13/2025 82.6 kg (182 lb) 07/07/2025 83.2 kg (183 lb 8 oz) 06/29/2025 81 kg (178 lb 9.2 oz) Last 1 Encounter Ht Readings: Date: Ht: 07/13/2025 167.6 cm (5' 6) CrCl: 41.7 mL/min Temp (24hrs), Av.8 ?C (98.3 ?F), Min:36.8 ?C (98.3 ?F), Max:36.8 ?C (98.3 ?F) - Current Temp: 36.8 ?C (98.3 ?F) Labs BUN (mg/dL) Date Value 07/13/2025 32 (H) 07/07/2025 27 (H) 06/23/2025 41 (H) Creatinine (mg/dL) Date Value 07/13/2025 1.21 07/07/2025 1.17 06/23/2025 1.34 (H) WBC (k/uL) Date Value 07/13/2025 16.71 (H) 07/07/2025 5.31 06/23/2025 7.63 Vancomycin Levels: No results found for: JOSH Blanca [facility] Comprehensive metabolic 2000 panelon 07-13-2025 Albumin [Mass/Vol] 3.5 g/dL Normal 3.2-5.0 [facility] Comment on above: Order Comment: Speci men Type: BLOOD SPECIMENOrdering Facility: [facility] Address: [address] [place] [address] Performed By: #### 2 4323-8, 98227-4, 14207-9, HSTROP ####[facility]ORATORYCLIA [id number] [place] [id number] [place] ALP [Catalytic activity/Vol] 83 U/L Normal 45-117 [facility] Comment on above: Order Comment: Speci men Type: BLOOD SPECIMENOrdering Facility: [facility] Address: [address] [place] [address] Performed By: #### 2 4323-8, 01573-1, 51179-4, HSTROP ####[facility] LABORATORYCLIA [id number] [place] [id number] [place] [facility] ALT [Catalytic activity/Vol] 33 U/L Normal 13-61 [facility] Comment on above: Order Comment: Speci men Type: BLOOD SPECIMENOrdering Facility: [facility] Address: [address] [place] [address] Result Comment: Resu lts may be falsely depressed after the administration of Sulfasalazine and/or Sulfapyridine. Performed By: #### 2 4323-8, 65575-0, 24990-5, HSTROP ####[facility]ORATORYCLIA [id number] [place] [id number] [place] Anion gap [Moles/Vol] 8 mmol/L Normal 5-16 [facility] Comment on above: Order Comment: Speci men Type: BLOOD SPECIMENOrdering Facility: [facility] Address: [address] [place] [address] Performed By: #### 2 4323-8, 14166-4, 29317-5, HSTROP ####[facility]ORATORYCLIA [id number] [place] [id number] [place] AST [Catalytic activity/Vol] 35 U/L High 8-34 [facility] Comment on above: Order Comment: Speci men Type: BLOOD SPECIMENOrdering Facility: [facility] Address: [address] [place] [address] Result Comment: Resu lts may be falsely depressed after the administration of Sulfasalazine and/or Sulfapyridine. Performed By: #### 2 4323-8, 45483-4, 50417-1, HSTROP ####[facility]ATORYCLIA [id number] [place] [id number] [place] Bilirubin [Mass/Vol] 2.0 mg/dL High 0.2-1.0 [facility] Comment on above: Order Comment: Speci men Type: BLOOD SPECIMENOrdering Facility: [facility] Address: [address] [place] [address] Performed By: #### 2 4323-8, 89124-2, 26134-7, HSTROP ####[facility]ATORYCLIA [id number] [place] [id number] [place] Calcium [Mass/Vol] 8.8 mg/dL Normal 8.5-10.5 [facility] Comment on above: Order Comment: Speci men Type: BLOOD SPECIMENOrdering Facility: [facility] Address: [address] [place] [address] Performed By: #### 2 4323-8, 96090-1, 52761-0, HSTROP ####[facility]ATORYCLIA [id number] [place] [id number] [place] Chloride [Moles/Vol] 100 mmol/L Normal 98-107 [facility] Comment on above: Order Comment: Speci men Type: BLOOD SPECIMENOrdering Facility: [facility] Address: [address] [place], [place] [address] Performed By: #### 2 4323-8, 58452-8, 17737-1, HSTROP ####[facility]ORATORYCLIA [id number] [place] [id number] [place] CO2 [Moles/Vol] 31 mmol/L Normal 21-32 [facility] Comment on above: Order Comment: Speci men Type: BLOOD SPECIMENOrdering Facility: [facility] Address: [address] [place] [address] Performed By: #### 2 4323-8, 03922-6, 61278-5, HSTROP ####[facility]ORATORYCLIA [id number] [place] [id number] [place] Creatinine [Mass/Vol] 1.21 mg/dL Normal 0.50-1.40 [facility] Comment on above: Order Comment: Speci men Type: BLOOD SPECIMENOrdering Facility: [facility] Address: [address] [place] [address] Result Comment: Kierra ents receiving either N-Acetylcysteine (NAC) or Metamizole prior to venipuncture, may have falsely depressed results. Performed By: #### 2 4323-8, 11398-6, 83292-8, HSTROP ####[facility]ATORYCLIA [id number] [place] [id number] [place] eGFRcr SerPlBld CKD-EPI 2020 57 mL/min/1.73m??? Low >=60 [facility] Comment on above: Order Comment: Speci men Type: BLOOD SPECIMENOrdering Facility: [facility] Address: [address] [place] [address] Result Comment: Concepción mated Glomerular Filtration Rate [...] actual GFR. Performed By: #### 2 4323-8, 92169-0, 66524-0, HSTROP ####[facility]ATORYCLIA [id number] [place] [id number] [place] Glucose [Mass/Vol] 196 mg/dL High 70-100 [facility] Comment on above: Order Comment: Speci men Type: BLOOD SPECIMENOrdering Facility: [facility] Address: [address] [place] [address] Result Comment: The [place] Diabetes Association (ADA) provides guidance for cutoff values for fasting glucose and random glucose. The ADA defines fasting as no caloric intake for at least 8 hours. Fasting plasma glucose results between 100 to 125 mg/dL indicate increased risk for diabetes (prediabetes). Fasting plasma glucose results greater than or equal to 126 mg/dL meet the criteria for diagnosis of diabetes. In the absence of unequivocal hyperglycemia, results should be confirmed by repeat testing. In a patient with classic symptoms of hyperglycemia or hyperglycemic crisis, random plasma glucose results greater than or equal to 200 mg/dL meet the criteria for diagnosis of diabetes. Reference: Standards of Medical Care in Diabetes 2016, [place] Diabetes Association. Diabetes Care. 2016.39(Suppl 1). Results may be falsely elevated after the administration of Sulfapyridine. Results may be falsely depressed after the administration of Sulfasalazine. Performed By: #### 2 4323-8, 73543-1, 52387-6, HSTROP ####[facility]ATORYCLIA [id number] [place] [id number] [place] Potassium [Moles/Vol] 5.5 mmol/L High 3.5-5.1 [facility] Comment on above: Order Comment: Speci men Type: BLOOD SPECIMENOrdering Facility: [facility] Address: [address] [place] [address] Performed By: #### 2 4323-8, 17238-7, 56388-0, HSTROP ####[facility]ATORYCLIA [id number] [place] [id number] [place] Protein [Mass/Vol] 6.4 g/dL Normal 6.0-8.5 [facility] Comment on above: Order Comment: Speci men Type: BLOOD SPECIMENOrdering Facility: [facility] Address: [address] [place] [address] Performed By: #### 2 4323-8, 70992-2, 20014-0, HSTROP ####[facility]ORATORYCLIA [id number] [place] [address] [place] Sodium [Moles/Vol] 139 mmol/L Normal 136-145 [facility] Comment on above: Order Comment: Speci men Type: BLOOD SPECIMENOrdering Facility: [facility] Address: [address] [place] [address] Performed By: #### 2 4323-8, 65062-1, 62693-5, HSTROP ####[facility]ATORYCLIA [id number] [place] [id number] [place] Urea nitrogen [Mass/Vol] 32 mg/dL High 06-03 [facility] Comment on above: Order Comment: Speci men Type: BLOOD SPECIMENOrdering Facility: [facility] Address: [address] [place] [address] Performed By: #### 2 4323-8, 29588-3, 05377-2, HSTROP ####[facility]ATORYCLIA [id number] [place] [id number] [facility] [place] ECG COMPLETEon 07-13-2025 ECG COMPLETE Ventricular Rate : 1 00 BPM Atrial Rate : 104 BPM QRS Duration : 142 ms Q-T Interval : 388 ms QTC Calculation(Bazett) : 500 ms Calculated R [place] : 257 degrees Calculated T [place] : 78 degrees Undetermined rhythm Right bundle branch block Inferior infarct , age undetermined Anterolateral infarct , age undetermined Abnormal ECG When compared to previous ekg no significant changes seen Confirmed by DOMINGO SANCHEZ MD ([id number]) on 07/16/2025 11:21:35 PM NAME : SRINI LUIS PID : [id number] : 1935 Gender : Male Race : ORD : [id number] Procedure Date : Jul 13 2025 16:01:05 Edit Date : Jul 16 2025 23:21:36 Diagnosis: Undetermined rhythm Right bundle branch block Inferior infarct , age undetermined Anterolateral infarct , age undetermined Abnormal ECG When compared to previous ekg no significant changes seen Confirmed by DOMINGO SANCHEZ MD ([id number]) on 07/16/2025 11:21:35 PM Test Reason : STAT Location : 0 : ED EDFTD Overread By : DOMINGO SANCHEZ MD Edited By : DOMINGO SANCHEZ MD Referred By : , Acquired by : [id number], [facility] ED NOTEon 07-13-2025 ED NOTE HNO ID: [id number] Author: RAJEEV MARTINEZ Medic Service: ? Author Type: Welding Machine Assembler and Healthcare Applications Analyst Type: ED Notes Filed: 07/13/2025 17:31 Note Text: Bed: 12-ED Expected date: Expected time: Means of arrival: Comments: [facility] ED NOTE HNO ID: [id number] Author: LIZA RUST, RN Service: Emergency Medicine Author Type: Registered Nurse Type: ED Notes Filed: 07/13/2025 15:41 Note Text: Here with cellulitis and bilateral hand swelling [facility] ED PROV NOTEon 07-13-2025 ED PROV NOTE HNO ID: [id number] Author: MINGO MURRY PA-C Service: ? Author Type: Physician Director Of Counseling Type: ED Provider Notes Filed: 07/13/2025 19:35 Note Text: -- Attestation signed by Luis Lan MD at 07/14/2025 3:30 PM Please see my dedicated note. Signature: Luis Lan MD Date: 07/14/2025 Time: 3:30 PM -- ED Provider Note Patient Name: Srini Luis : 1935 SERVICE DATE: 07/13/25 History Patient presents with: Edema: Bilateral hand swelling HPI Srini Luis is a 89 year old male with history of CAD s/p CABG, atrial fibrillation anticoagulated on Eliquis, prior CVA, CHF, hypertension who presents to the ED for evaluation of increasing extremity swelling and redness/warmth of the left leg. Patient states his bilateral lower extremities have been swollen for quite some time but since last night he developed swelling of the bilateral hands. Family does note that he was recently admitted to [facility] due to lower extremity swelling and concerns for cellulitis of the left leg. Denies current antibiotic treatment. States he has been compliant on his daily Lasix. Otherwise denies chest pain, significant shortness of breath, fever, chills, abdominal pain, nausea, vomiting, or other symptoms at this time. Nursing/triage notes, assessments, and vitals were reviewed. See MDM/ED course for further HPI. 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 ([facility]) 12/01/2022 CVA (cerebral vascular accident) ([facility]) 08/22/2022 Diverticulosis H/O echocardiogram 09/16/2022 EF 68?5 %, mod concentric LVH, mod TR, mild-mod MR with mod MAC History of anemia History of CVA (cerebrovascular accident) 08/22/2022 Pontine infarction, R>L History of stress test 10/12/2024 EF 43%, mild ischemia involving the apex 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 [...] RIGHT OP SURGERY Right 12/18/2020 Dr Arreola [facility] ARTHROPLASTY TOTAL SHOULDER 11/09/2008 right ARTHROSCOPY OF JOINT UNLISTED 1999 Elbow right CABG (4) VEIN GRAFTS AND ARTERIAL GRAFT(S) 07/21/2021 In [facility] COLONOSCOPY FLX DX W/COLLJ SPEC WHEN [...] Family History NO PE OR DVT Social History[1] ALLERGIES Allergen Reactions Simvastatin Other: See Comments Elevated CK Physical Exam Physical Exam Vitals [07/13/25 1741] BP Pulse Temp Temp src Resp SpO2 Weight Height 109/64 (!) 94 36.8 ?C (98.3 ?F) Oral 20 100 % 82.6 kg (182 lb) 1.676 m (5' 6) General: alert, nontoxic appearing HEENT: atraumatic, EOMI, no scleral injection or tearing, mucous membranes moist Neck: supple without lymph (more content not included)... [facility] ED PROV NOTE HNO ID: [id number] Author: LUIS LAN MD Service: ? Author Type: Physician Type: ED Provider Notes Filed: 07/13/2025 19:08 Note Text: ED Provider Note Patient Name: Srini Luis : 1935 SERVICE DATE: 07/13/25 Attending Note Attestation for: SOFTWARE DEVELOPMENT LEADER/RICO I have personally performed a face to face assessment of the patient and have reviewed the FAM note. I personally made/approved the management plan and take responsibility for the patient management. I performed a substantive portion of the visit including all aspects of the following. My villanueva findings include: HISTORY Srini Luis is a 89 year old male with PMH per EMR including hypertension, CAD, hyperlipidemia, right bundle branch block, prior CVA, complete heart block status post pacemaker, chronic atrial fibrillation, home medication including Lasix 40 mg p.o. twice daily, Xarelto, presents with concern for swelling. Patient reports for several months he has had swelling bilateral lower extremities that has worsened, since last night he has involvement of the bilateral hands as well, he reports he was recently hospitalized for cellulitis involving the left leg, reports this is improved, he denies fever chills, cough, chest pain, shortness of breath, abdominal pain, numbness or weakness, or other associated symptoms or concerns. PHYSICAL EXAM Vitals [07/13/25 1741] BP Pulse Temp Temp src Resp SpO2 Weight Height 109/64 (!) 94 36.8 ?C (98.3 ?F) Oral 20 100 % 82.6 kg (182 lb) 1.676 m (5' 6) General: no apparent distress, well appearing Eyes: conjunctival noninjected, eyes tracking HEENT: airway patent, mucous membranes moist Cardiovascular: regular rhythm, normal rate, symmetrical radial pulses palpable, DP pulses obtainable by Doppler bilaterally-by myself, peripheral extremities warm and well-perfused throughout Respiratory: non-labored breathing, left basilar crackles, no wheezing, no tachypnea, no respiratory distress Gastrointestinal: soft, non-distended, non-tender to palpation throughout, soft reducible hernia in the midline Extremities: no obvious deformity, edematous hands bilaterally, no erythema warmth or tenderness associated, edematous lower extremities bilaterally-symmetrical, shallow ulcerative wounds in the pretibial region bilaterally, left lower leg erythematous without warmth or tenderness, no induration fluctuance or crepitus associated, no wounds in the bilateral feet Integumentary: warm, dry Neurologic: Alert, oriented, answer questions appropriately, follows commands, community living instructor strength symmetrical, wiggles toes bilaterally, sensation intact bilateral hands and feet MEDICAL DECISION MAKING Medications furosemide 40 mg injection (LASIX) (has no administration in time range) piperacillin-tazobactam iv piggyback 3.375 g in dextrose (iso-osmotic) 50 mL (ZOSYN) (has no administration in time range) vancomycin iv piggyback 1.25 g in D5W 250 mL (VANCOCIN) (has no administration in time range) vancomycin dosing and monitoring per pharmacy (has no administration in time range) NaCl 0.9% iv flush bag (has no administration in time range) Srini Luis is a 89 year old male who presents as above, worsening edematous lower extremities bilaterally, also with involvement of the hands bilaterally, recent hospitalization for left leg cellulitis, left leg is erythematous, he denies cardiopulmonary symptoms although has left basilar crackles on exam, saturating well on room air, arrives afebrile, borderline tachycardic, borderline tachypneic, presentation concerning for CHF exacerbation, cellulitis, patient is already on Lasix p.o., workup initiated to evaluate including chest x-ray, EKG, labs evaluation, will treat with IV Lasix, vancomycin Zosyn, obtain blood cultures lactate, plan for admission for further evaluation and management including further diuresis, antibiotics as indicated. Labs obtained, interpreted by me, notable for creatinine 1.21 previously 1.17 potassium 5.5-previously 5.4-will treat with IV Lasix, BNP 17 919 previously 4857, leukocytosis-suspect secondary cellulitis, hemoglobin 11.3 previously 10.7 EKG obtained, per my interpretation, notable for sinus versus ectopic atrial rhythm including atrial fibrillation heart rate 100 bpm, QRS prolonged with right bundle branch block morphology, QTc 500 ms, T wave inversions V1 V2 aVL. HS troponin 74.1-patient denies chest pain or other anginal equivalent, suspect CHF related, will trend troponin-appropriate for further cardiac evaluation as an inpatient Chest x-ray per radiologist interpretation low lung volumes with crowded bronchovascular markings cannot exclude mild interstitial edema or pneumonitis no pneumothorax or appreciable pleural effusion, stable cardiomediastinal silhouette For further details of the emergency department visit, please see FAM documentation. SIGNATURE: Luis Lan, (more content not included)... [facility] ED Triage Noteon 09-04-2025 ED Triage Note HNO ID: [id number] Author: EVELINE CHAVIRA PA-C Service: ? Author Type: Physician Director Of Counseling Type: ED Triage Notes Filed: 07/13/2025 15:41 Note Text: ED TRIAGE PROVIDER NOTE Patient Name: Srini Luis Service Date: 07/13/25 BRIEF HPI: This is a 89 year old male who presents to the ED with: Extremity edema. Follows with [facility] cardiology for heart failure. States that his lower extremity edema is worsening and now his hands are swollen. He is short of breath. No chest pain. He is on blood thinners. BRIEF EXAM: NAD Awake and Alert Non labored breathing Bilateral lower extremity edema. Bilateral hands are edematous. INITIAL WORKUP AND DECISION MAKING: Orders Placed This Encounter CXR PA/LAT CBC with Diff CMP TROPONIN MAG LEVEL BNP-T EKG SIGNATURE: Eveline Chavira PA-C [facility] HIGH SENSITIVITY TROPONIN Io n 07-13-2025 Tropinin I.cardiac panel High sensitivity method 77.7 pg/mL High 0.0-54.0 [facility] Comment on above: Order Comment: Speci men Type: BLOOD SPECIMENOrdering Facility: [facility] Address: [address] [place] [address] Result Comment: CRIT ICAL Performed By: #### H STROP ####[facility] LABORATORYCLIA [id number] [place] [address] [place] Tropinin I.cardiac panel High sensitivity method 80.6 pg/mL High 0.0-54.0 [facility] Comment on above: Order Comment: uJlii vladimir Type: BLOOD SPECIMENOrdering Facility: [facility] Address: [address] [place] [address] Result Comment: CRIT ICAL Performed By: #### H STROP ####[facility]ORATORYCLIA [id number] [place] [id number] [place] Tropinin I.cardiac panel High sensitivity method 74.1 pg/mL High 0.0-54.0 [facility] Comment on above: Order Comment: Speci men Type: BLOOD SPECIMENOrdering Facility: [facility] Address: [address] [place] [id number] Result Comment: CRIT ICAL Performed By: #### 2 4323-8, 24437-0, 10352-7, HSTROP ####[facility]ORATORYCLIA [id number] [place] [address] [place] HISTORY PHYSICALon HISTORY PHYSICAL HNO ID: [id number] Author: ARMIDA PARKER MD Service: Hospital Medicine Author Type: Physician Type: H&P Filed: 07/15/2025 14:35 Note Text: HISTORY AND PHYSICAL EXAMINATION PATIENT NAME: Srini Luis SERVICE DATE AND TIME: 07/13/2025 8:03 PM PRIMARY CARE PHYSICIAN: Ronaldo Pleitez MD CHIEF COMPLAINT: Swelling in the lower legs and especially right upper extremity since the hospital stay 2 weeks ago for cellulitis of the lower legs. HPI: This is a 89 year old male with a PMH of chronic atrial fibrillation on Xarelto, CHF, hypothyroidism, hypercholesterolemia, CML and chronic venous stasis, who presents to the ER with swelling both legs and right upper extremity. During the ER evaluation he is afebrile, tachycardic with a heart rate of 109 bpm, tachypneic with a respiratory rate of 22 and a normal O2 sat. Labs show an elevated white blood cell count of 16,000, normal lactate. Troponin slightly elevated to 74.1 with a repeat slightly higher at 80.62 hours later but patient remains asymptomatic for ACS. proBNP elevated 17 919. Chest x-ray low lung volumes with crowded bronchovascular markings cannot exclude mild interstitial edema or pneumonitis. While in the ER he received Lasix 40 mg IV. He appears to have acute on chronic CHF and is meeting criteria for sepsis possibly due to left lower extremity cellulitis so will be admitted to the hospital for further evaluation and treatment. After discussion with the ED Physician, it was agreed the patient will need ADMITTED to the hospital and placed on a Continuous Ship Wirer. for acute on chronic CHF, sepsis and possible cellulitis left lower extremity. ASSESSMENT/PLAN: PRINCIPLE PROBLEM: 1. Acute on chronic CHF -Follows with Dr Minor/Iram Johnson - 10/12/2024: Evidence of mild ischemia involving the apex, EF 43% - Lasix 40 mg IV twice daily X2 more doses and reassess - Echocardiogram -BMP in a.m. -Compression hose for bilateral lower extremity venous stasis -Takes Lasix 40 mg twice daily at home. Looks like he should also be on Zaroxolyn 2.5 mg 3 times a week, uncertain whether or not he is consistently compliant with this. ADDITIONAL PROBLEMS: 2. 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 Hyperkalemia - Potassium 5.5 -Hold home dose of potassium - Recheck BMP in a.m. after diuresis 4. 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 Hypothyroidism - Continue home med: -Levothyroxine 100 mcg daily 7. History of myasthenia gravis - 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 07/2017-has not been on any medications -Thymoma negative, seronegative antibodies 8. Severe lumbar spinal stenosis -Uses cane or walker at home 9. History CMML-1 (diagnosed 10/24/2020) -Per heme oncology notes in the past- could progress to AMLwith 25% transformation within 1 year of Dx - Repeat labs in a.m. -Patient presently involved with palliative care services 10. History of anemia/microcytic - Has had B12 deficiency in the past - Continue B12 po 11. DVT ASSESSMENT -Encourage early and ongoing ambulation/mobility as appropriate and tolerated by patient Already adequately anti-coagulated with home medication Xarelto DIET: Cardiac, <4 g sodium diet IVF'S N/A, IV LOCKED DEVICES PRESENT ON ADMISSION: Peripheral IV Telemetry BMI: Body mass index is 29.38 kg/m?. Please Note: Recorded weight not a reliable value due to other co-existing medical conditions ISOLATION OR OTHER SPECIAL CONSIDERATIONS: Does not need Isolation. ACTIVITY AT HOME: Independent Lives on own Requires an assistive device(s): Cane and Walker ACTIVITY ON ADMISSION: Up with assist WOUNDS/PRESSURE INJURIES POA: Lower leg/Calf (right ant tibia few scattered shallow ulcers) DISPOSITION AT DISCHA (more content not included)... Normal [facility] Magnesium [facility] Magnesium [Mass/Vol] 2.0 mg/dL Normal 1.6-2.6 [facility] Comment on above: Order Comment: [facility] Type: BLOOD SPECIMENOrdering Facility: [facility] Address: [address] [place] [address] Performed By: #### 2 4323-8, 73338-6, 71567-1, HSTROP ####[facility] LABORATORYCLIA [id number] [place] [address] [place] NT-proBNP [facility] Natriuretic peptide.B prohormone N-Terminal [Mass/Vol] 17169 pg/mL High <450 [facility] Comment on above: Order Comment: [facility] Type: BLOOD SPECIMENOrdering Facility: [facility] Address: [address] [place] [address] Result Comment: NT-p roBNP results of less than 300 pg/mL likely rules out acute congestive heart failure with 99% predictive value. NOTE: These cutoff points are suggested for ACUTE CHF DIAGNOSIS only Less than 50 years\X09\ Greater than 450 pg/mL 50 - 75 years\X09\\X09\ Greater than 900 pg/mL Greater than 75 years\X09\ Greater than 1800 pg/mL Performed By: #### 2 1153-8, 73679-9, 84612-6, HSTROP ####[facility] LABORATORYCLIA [id number] [place] [id number] [place] Procalcitonin SerPl-mCncon 0 07-13-2025 Procalcitonin [Mass/Vol] 0.28 ng/mL Normal 0.00-0.50 [facility] Comment on above: Order Comment: [facility] gilbert Type: BLOOD SPECIMENOrdering Facility: [facility] Address: [address] [place] [address] Result Comment: PCT Concentration Interpretation PCT <=0.1 ng/mL: Normal range for healthy adults PCT >0.1 ng/mL and <0.5 ng/mL: Systemic infection (sepsis) is possible and may require antibiotic treatment, but other conditions are known to elevate PCT as well. PCT >0.5 ng/mL: Should be considered at risk for developing severe sepsis or septic shock. PCT >2.0 ng/mL: Important systemic inflammatory response. Almost exclusively indicates episode of severe bacterial sepsis or septic shock. Performed By: #### 3 3959-8 ####[facility] LABORATORYCLIA [id number] [place] [id number] [place] SEPSIS LACTATE W/ REFLEX (IN ITIAL)on 07-13-2025 Lactate [Moles/Vol] 1.8 mmol/L Normal 0.4-2.0 [facility] Comment on above: Order Comment: [facility] Type: BLOOD SPECIMENOrdering Facility: [facility] Address: [address] [place] [address] Performed By: #### S LACTR ####[facility] LABORATORYCLIA [id number] [place] [address] [place] XR CHEST 2V FRONTAL/LATon XR CHEST 2V FRONTAL/LAT * * *Final Report* * * DATE OF EXAM: Jul 13 2025 3:55PM RHX [id number] - XR CHEST 2V FRONTAL/LAT / PROCEDURE REASON: Shortness of breath * * * * Physician Interpretation * * * * EXAMINATION: CHEST RADIOGRAPH (2 VIEW FRONTAL and LATERAL) CLINICAL HISTORY: Shortness of breath MQ: XC2_6 EXAM DATE/TIME: 07/13/2025 3:55 PM COMPARISON: 01/22/2024 RESULT: Lines, tubes, and devices: Unchanged dual-lead left pacemaker. Lungs and pleura: Low lung volumes with crowded bronchovascular markings. Cannot exclude mild interstitial edema or pneumonitis. No pneumothorax or appreciable pleural effusion. Cardiomediastinal silhouette: Stable cardiomediastinal silhouette. Bones and soft tissues: Median sternotomy. Bilateral shoulder arthroplasties. Spondylosis. IMPRESSION: See result. Talcer: BERNARDA Transcribe Date/Time: Jul 13 2025 3:57P Dictated by : LYDIA LOVETT MD This examination was interpreted and the report reviewed and electronically signed by: LYDIA LOVETT MD on Jul 13 2025 3:59PM EST [id number] Normal [facility] CBC W Auto Differential pane l (Bld)on 07-07-2025 Basophils (Bld) [#/Vol] 0.05 10*3/uL Normal <0.11 [facility] Comment on above: Order Comment: Speci men Type: BLOOD SPECIMENOrdering Facility: [facility] Address: [address] [place] [address] Performed By: #### 5 7021-8 ####[facility] [id number] [address] LABORATORYCLIA [id number] [place] [address] [place] Basophils/100 WBC (Bld) 0.9 % Normal [facility] Comment on above: Order Comment: Speci men Type: BLOOD SPECIMENOrdering Facility: [facility] Address: [address] [place] [address] Performed By: #### 5 7021-8 ####[facility] [id number] [address] LABORATORYCLIA [id number] [place] [address] [place] Differential cell count method Nom (Bld) Auto Normal [facility] Comment on above: Order Comment: Speci men Type: BLOOD SPECIMENOrdering Facility: [facility] Address: [address] [place] [address] Performed By: #### 5 7021-8 ####[facility]ENTERWNCLIA [id number] [address] LABORATORYCLIA [id number] [place] [address] [place] Eosinophils (Bld) [#/Vol] 0.06 10*3/uL Normal <0.46 [facility] Comment on above: Order Comment: Speci men Type: BLOOD SPECIMENOrdering Facility: [facility] Address: [address] [place] [address] Performed By: #### 5 7021-8 ####[facility] [id number] [address] LABORATORYCLIA [id number] [place] [address] [place] Eosinophils/100 WBC (Bld) 1.1 % Normal [facility] Comment on above: Order Comment: Speci men Type: BLOOD SPECIMENOrdering Facility: [facility] Address: [address] [place] [address] Performed By: #### 5 7021-8 ####[facility] [id number] [address] LABORATORYCLIA [id number] [place] [address] [place] Erythrocyte distribution width (RBC) [Ratio] 26.3 % High 11.5-15.0 [facility] Comment on above: Order Comment: Speci men Type: BLOOD SPECIMENOrdering Facility: [facility] Address: [address] [place] [address] Performed By: #### 5 7021-8 ####[facility] MILLTOWNCLIA [id number] [address] LABORATORYCLIA [id number] [place] [address] [place] Hematocrit (Bld) [Volume fraction] 33.5 % Low 39.0-51.0 [facility] Comment on above: Order Comment: Speci men Type: BLOOD SPECIMENOrdering Facility: [facility] Address: [address] [place] [address] Performed By: #### 5 7021-8 ####[facility]ENTERWNCLIA [id number] [address] LABORATORYCLIA [id number] [place] [address] [place] Hemoglobin (Bld) [Mass/Vol] 10.7 g/dL Low 13.0-17.0 [facility] Comment on above: Order Comment: Speci men Type: BLOOD SPECIMENOrdering Facility: [facility] Address: [address] [place] [address] Performed By: #### 5 7021-8 ####[facility]ENTERWNCLIA [id number] [address] LABORATORYCLIA [id number] [place] [address] [place] Immature granulocytes (Bld) [#/Vol] 10*3/uL Normal <0.10 [facility] Comment on above: Order Comment: Speci men Type: BLOOD SPECIMENOrdering Facility: [facility] Address: [address] [place] [address] Performed By: #### 5 7021-8 ####[facility] MILLTOWNCLIA [id number] [address] LABORATORYCLIA [id number] [place] [address] [place] Immature granulocytes/100 WBC (Bld) 0.4 % Normal [facility] Comment on above: Order Comment: Speci men Type: BLOOD SPECIMENOrdering Facility: [facility] Address: [address] [place] [address] Performed By: #### 5 7021-8 ####[facility] MILLTOWNCLIA [id number] [address] LABORATORYCLIA [id number] [place] [address] [place] Lymphocytes (Bld) [#/Vol] 0.81 10*3/uL Low 1.00-4.00 [facility] Comment on above: Order Comment: Speci men Type: BLOOD SPECIMENOrdering Facility: [facility] Address: [address] [place] [address] Performed By: #### 5 7021-8 ####[facility]ENTERWNCLIA [id number] [address] LABORATORYCLIA [id number] [place] [address] [place] Lymphocytes/100 WBC (Bld) 15.3 % Normal [facility] Comment on above: Order Comment: Speci men Type: BLOOD SPECIMENOrdering Facility: [facility] Address: [address] [place] [address] Performed By: #### 5 7021-8 ####[facility] CENTERWMALIA [id number] [address] LABORATORYCLIA [id number] [place] [address] [place] MCH (RBC) [Entitic mass] 36.4 pg High 26.0-34.0 [facility] Comment on above: Order Comment: Speci men Type: BLOOD SPECIMENOrdering Facility: [facility] Address: [address] [place] [address] Performed By: #### 5 7021-8 ####[facility] MILLIVANAWNCLIA [id number] [address] LABORATORYCLIA [id number] [address] MCHC (RBC) [Mass/Vol] 31.9 g/dL Normal 30.5-36.0 [facility] Comment on above: Order Comment: Speci men Type: BLOOD SPECIMENOrdering Facility: [facility] Address: [address] [place] [address] Performed By: #### 5 7021-8 ####[facility] SYSTEMROBERTLIA [id number] [address] LABORATORYCLIA [id number] [place] [address] [place] MCV (RBC) [Entitic vol] 113.9 fL High 80.0-100.0 [facility] Comment on above: Order Comment: Speci men Type: BLOOD SPECIMENOrdering Facility: [facility] Address: [address] [place] [address] Performed By: #### 5 7021-8 ####[facility] SYSTEMNCLIA [id number] [address] LABORATORYCLIA [id number] [address] [place] Monocytes (Bld) [#/Vol] 0.75 10*3/uL Normal <0.87 [facility] Comment on above: Order Comment: Speci men Type: BLOOD SPECIMENOrdering Facility: [facility] Address: [address] [place] [address] Performed By: #### 5 7021-8 ####[facility] SYSTEMNCA [id number] [address] LABORATORYCLIA [id number] [place] [address] [place] Monocytes/100 WBC (Bld) 14.1 % Normal [facility] Comment on above: Order Comment: Speci men Type: BLOOD SPECIMENOrdering Facility: [facility] Address: [address] [place] [address] Performed By: #### 5 7021-8 ####[facility] MILLTOWNCLIA [id number] [address] LABORATORYCLIA [id number] [place] [address] [place] Neutrophils (Bld) [#/Vol] 3.62 10*3/uL Normal 1.45-7.50 [facility] Comment on above: Order Comment: Speci men Type: BLOOD SPECIMENOrdering Facility: [facility] Address: [address] [place] [address] Performed By: #### 5 7021-8 ####[facility]ITALTOWNCLIA [id number] [address] LABORATORYCLIA [id number] [place] [address] [place] Neutrophils/100 WBC (Bld) 68.2 % Normal [facility] Comment on above: Order Comment: Speci men Type: BLOOD SPECIMENOrdering Facility: [facility] Address: [address] [place] [address] Performed By: #### 5 7021-8 ####[facility] MILLTOWNCLIA [id number] [address] LABORATORYCLIA [id number] [place] [address] [place] Nucleated RBC (Bld) [#/Vol] 0.02 10*3/uL High <0.01 [facility] Comment on above: Order Comment: Speci men Type: BLOOD SPECIMENOrdering Facility: [facility] Address: [address] [place] [address] Performed By: #### 5 7021-8 ####[facility] MEENAKSHIWNCLIA [id number] [address] LABORATORYCLIA [id number] [place] [address] [place] Nucleated RBC/100 WBC (Bld) [Ratio] 0.4 /100 WBC Normal [facility] Comment on above: Order Comment: Speci men Type: BLOOD SPECIMENOrdering Facility: [facility] Address: [address] [place] [address] Performed By: #### 5 7021-8 ####[facility] SYSTEMNCLIA [id number] [address] LABORATORYIA [id number] [place] [address] [place] Platelet mean volume (Bld) [Entitic vol] 11.3 fL Normal 9.0-12.7 [facility] Comment on above: Order Comment: Speci men Type: BLOOD SPECIMENOrdering Facility: [facility] Address: [address] [place] [address] Performed By: #### 5 7021-8 ####[facility] JONHWNCLIA [id number] [address] LABORATORYCLIA [id number] [place] [address] [place] Platelets (Bld) [#/Vol] 181 10*3/uL Normal 150-400 [facility] Comment on above: Order Comment: Speci men Type: BLOOD SPECIMENOrdering Facility: [facility] Address: [address] [place] [address] Performed By: #### 5 7021-8 ####[facility] DAYTONLIA [id number] [address] LABORATORYCLIA [id number] [place] [address] [place] RBC (Bld) [#/Vol] 2.94 10*6/uL Low 4.20-6.00 [facility] Comment on above: Order Comment: Speci men Type: BLOOD SPECIMENOrdering Facility: [facility] Address: [address] [place] [address] Performed By: #### 5 7021-8 ####[facility] DAYTONLIA [id number] [address] LABORATORYCLIA [id number] [place] [address] [place] [facility] WBC (Bld) [#/Vol] 5.31 10*3/uL Normal 3.70-11.00 [facility] Comment on above: Order Comment: Speci men Type: BLOOD SPECIMENOrdering Facility: [facility] Address: [address] [place] [address] Performed By: #### 5 7021-8 ####[facility] DAYTONLIA [id number] [address] LABORATORYCLIA [id number] [address] [place] CNOVSPon 07-07-2025 CNOVSP Normal [facility] Comprehensive metabolic 2000 panelon 07-07-2025 Albumin [Mass/Vol] 3.9 g/dL Normal 3.9-4.9 [facility] Comment on above: Order Comment: Speci men Type: BLOOD SPECIMENOrdering Facility: [facility] Address: [address] [place] [address] Performed By: #### 2 4323-8 ####[facility]ENTERWNCLIA [id number] [place] [address] [place] ALP [Catalytic activity/Vol] 76 U/L Normal 38-113 [facility] Comment on above: Order Comment: Speci men Type: BLOOD SPECIMENOrdering Facility: [facility] Address: [address] [place] [address] Performed By: #### 2 4323-8 ####[facility] MARVA MILLTOWNCLIA [id number] [place] [address] [place] ALT [Catalytic activity/Vol] 37 U/L Normal 10-54 [facility] Comment on above: Order Comment: Speci men Type: BLOOD SPECIMENOrdering Facility: [facility] Address: [address] [place] [address] Performed By: #### 2 4323-8 ####[facility] CENTERWNCLIA [id number] [place] [address] [place] Anion gap [Moles/Vol] 7 mmol/L Low 8-15 [facility] Comment on above: Order Comment: Speci men Type: BLOOD SPECIMENOrdering Facility: [facility] Address: [address] [place] [address] Performed By: #### 2 4323-8 ####[facility] MARVA MILLWNCLIA [id number] [place] [address] [place] AST [Catalytic activity/Vol] 39 U/L Normal 14-40 [facility] Comment on above: Order Comment: Speci men Type: BLOOD SPECIMENOrdering Facility: [facility] Address: [address] [place] [address] Performed By: #### 2 4323-8 ####[facility] MILLEMMETNCLIA [id number] [place] [address] [place] Bilirubin [Mass/Vol] 1.4 mg/dL High 0.2-1.3 [facility] Comment on above: Order Comment: Speci men Type: BLOOD SPECIMENOrdering Facility: [facility] Address: [address] [place] [address] Performed By: #### 2 4323-8 ####[facility] MAR[facility] MILLTOWNCLIA [id number] [place] [address] [place] Calcium [Mass/Vol] 8.9 mg/dL Normal 8.5-10.2 [facility] Comment on above: Order Comment: Speci men Type: BLOOD SPECIMENOrdering Facility: [facility] Address: [address] [place] [address] Performed By: #### 2 4323-8 ####[facility] MILLTOWNCLIA [id number] [place] [address] [place] Chloride [Moles/Vol] 101 mmol/L Normal 98-107 [facility] Comment on above: Order Comment: Speci men Type: BLOOD SPECIMENOrdering Facility: [facility] Address: [address] [place] [address] Performed By: #### 2 4323-8 ####[facility] MILLWNCLIA [id number] [place] [address] [place] CO2 [Moles/Vol] 32 mmol/L High 22-30 [facility] Comment on above: Order Comment: Speci men Type: BLOOD SPECIMENOrdering Facility: [facility] Address: [address] [place] [address] Performed By: #### 2 4323-8 ####[facility] MAR[facility] MILLTOWNCLIA [id number] [place] [address] [place] Creatinine [Mass/Vol] 1.17 mg/dL Normal 0.73-1.22 [facility] Comment on above: Order Comment: Speci men Type: BLOOD SPECIMENOrdering Facility: [facility] Address: [address] [place] [address] Performed By: #### 2 4323-8 ####[facility] MAR[facility] MILLTOWNCLIA [id number] [place] [address] [place] eGFRcr SerPlBld CKD-EPI 2020 60 mL/min/1.73m??? Normal >=60 [facility] Comment on above: Order Comment: [facility] gilbert Type: BLOOD SPECIMENOrdering Facility: [facility] Address: [address] [place] [address] Result Comment: Concepción mated Glomerular Filtration Rate [...] actual GFR. Performed By: #### 2 4323-8 ####[facility] [id number] [place] [address] [place] Glucose [Mass/Vol] 133 mg/dL High 74-99 [facility] Comment on above: Order Comment: [place] gilbert Type: BLOOD SPECIMENOrdering Facility: [facility] Address: [address] [place] [address] Result Comment: The [place] Diabetes Association (ADA) provides guidance for cutoff [...] Standards of Medical Care in Diabetes 2016, [place] [employer]. Diabetes Care. 2016.39(Suppl 1). Performed By: #### 2 4323-8 ####[facility] [id number] [place] [address] [place] Potassium [Moles/Vol] 5.4 mmol/L High 3.7-5.1 [facility] Comment on above: Order Comment: Speci men Type: BLOOD SPECIMENOrdering Facility: [facility] Address: [address] [place] [address] Performed By: #### 2 4323-8 ####[facility]ENTERWNCLIA [id number] [place] [address] [place] Protein [Mass/Vol] 6.0 g/dL Low 6.3-8.0 [facility] Comment on above: Order Comment: Speci men Type: BLOOD SPECIMENOrdering Facility: [facility] Address: [address] [place] [address] Performed By: #### 2 4323-8 ####[facility] SYSTEMNCLIA [id number] [place] [address] [place] Sodium [Moles/Vol] 140 mmol/L Normal 136-144 [facility] Comment on above: Order Comment: Speci men Type: BLOOD SPECIMENOrdering Facility: [facility] Address: [address] [place] [address] Performed By: #### 2 4323-8 ####[facility] SYSTEMNCLIA [id number] [place] [address] [place] Urea nitrogen [Mass/Vol] 27 mg/dL High 9-24 [facility] Comment on above: Order Comment: Speci men Type: BLOOD SPECIMENOrdering Facility: [facility] Address: [address] [place] [address] Performed By: #### 2 4323-8 ####[facility] SYSTEM[facility]CLIA [id number] [place] [address] [place] ECG COMPLETEon 07-07-2025 Calculated R [place] 254 degrees [facility] Calculated T [place] 13 degrees [facility] QRS Duration 144 ms [facility] QT Interval 440 ms [facility] QTC Calculation (Bazett) 511 ms [facility] Ventricular Rate 81 BPM [facility] ATRIAL FIBRILLATION COMPLETE RIGHT BUNDLE BRANCH BLOCK ANTEROLATERAL INFARCTION , AGE UNDETERMINED ABNORMAL ECG Confirmed by MD GARSIA QARAB ([id number]) on 07/07/2025 5:05:16 PM [facility] NAME : SRINI LUIS PID : [id number] : 1935 Gender : Male Race : ORD : Procedure Date : Jul 07 2025 10:41:53 Edit Date : Jul 07 2025 17:05:19 Diagnosis: ATRIAL FIBRILLATION COMPLETE RIGHT BUNDLE BRANCH BLOCK ANTEROLATERAL INFARCTION , AGE UNDETERMINED ABNORMAL ECG Confirmed by MD SUN, CECILE ([id number]) on 07/07/2025 5:05:16 PM Test Reason : jt Location : 189 : [facility] Overread By : MD GARSIA QARAB Edited By : MD GARSIA QARAB Referred By : BALJINDER GALLOWAY Acquired by : , [facility][NOTE 3] VASCULAR [facility] [id number] 07-07-2025 ECG01 Normal [facility] EPO SerPl-aCncon 07-07-2025 Erythropoietin (EPO) Qn 45.7 mIU/mL High 2.6-18.5 [facility] Comment on above: Order Comment: Speci men Type: BLOOD SPECIMENOrdering Facility: [facility] Address: [address] [place] [address] Performed By: #### 1 5061-5 ####[facility] LABIA [id number] [address] [place] Ferritin SerPl-mCncon 2024 Ferritin [Mass/Vol] 211.0 ng/mL Normal 30.3-565.7 [facility] Comment on above: Order Comment: Speci men Type: BLOOD SPECIMENOrdering Facility: [facility] Address: [address] [place] [address] Performed By: #### 2 284-8, 82276-0, 2276-4, 2132-9 ####[facility] LABCLIA [id number] [place] [address] [place] Folate SerPl-mCncon 07-07-20 25 Folate [Mass/Vol] ng/mL Normal >4.7 [facility] Comment on above: Order Comment: Speci men Type: BLOOD SPECIMENOrdering Facility: [facility] Address: [address] [place] [address] Result Comment: A re sult of > 20 ng/mL is not necessarily indicative of a pathologic or treatable condition: it reflects a limitation of the test methodology.Assay reference range: 4.8 to 24.2 ng/mL. Suitable for detection of folate deficiency.Reference:Folate III (Folate III) [package insert V 1.0 Serbian]. [facility], [place], [place]: September 2015. Performed By: #### 2 284-8, 41235-8, 2275-4, 2132-07 ####[facility] LABCLIA [id number] [address] [address] [place] Iron and Iron binding capaci [facility] 07-07-2025 Iron [Mass/Vol] 56 ug/dL Normal 41-186 [facility] Comment on above: Order Comment: Speci men Type: BLOOD SPECIMENOrdering Facility: [facility] Address: [address] [place] [address] Performed By: #### 2 284-8, 45123-6, 2276-02, 2132-07 ####[facility] LABIA [id number] [place] [address] [place] Iron binding capacity [Mass/Vol] 219 ug/dL Low 232-386 [facility] Comment on above: Order Comment: Speci men Type: BLOOD SPECIMENOrdering Facility: [facility] Address: [address] [place] [address] Performed By: #### 2 284-8, 07483-4, 4, 9 ####[facility] LABCLIA [id number] [address] [address] [place] Iron/TIBC [Molar ratio] 25.6 % Normal 15.0-57.0 [facility] Comment on above: Order Comment: Speci men Type: BLOOD SPECIMENOrdering Facility: [facility] Address: [address] [place] [address] Performed By: #### 2 284-8, 33655-2, 6-4, 2132-07 ####[facility] LABIA [id number] [place] [address] [place] Methylmalonate SerPl-sCncon 07-07-2025 Methylmalonate [Moles/Vol] 0.29 umol/L Normal <=0.40 [facility] Comment on above: Order Comment: Speci men Type: BLOOD SPECIMENOrdering Facility: [facility] Address: [address] [place] [address] Result Comment: This test was developed, and its performance characteristics determined by the [facility] Department of Pathology and Laboratory Medicine. It has not been cleared or approved by the FDA. The [facility] Department of Pathology and Laboratory Medicine is regulated under CLIA as qualified to perform high-complexity testing. This test is used for clinical purposes. It should not be regarded as investigational or for research. Performed By: #### 1 3964-2 ####[facility] LABIA [id number] [place] [address] [place] Vit B12 SerPl-mCncon 025 Cobalamin (Vitamin B12) [Mass/Vol] 1089 pg/mL Normal 232-1245 [facility] Comment on above: Order Comment: Speci men Type: BLOOD SPECIMENOrdering Facility: [facility] Address: [address] [place], [place] [address] Performed By: #### 2 284-8, 98228-9, 2275-4, 9 ####[facility] LABIA [id number] [place] [address] [place] CNPNon 06-30-2025 CNPN Normal [facility] CBC W/Diff, Automatedon 08-2 PATH REV Reviewed Normal [facility] Comment on above: Result Comment: SEE REPORT IN PATIENT'S EMR AMENDED REPORT 06/29/25 1551 PATH REV previously reported as: March Performed By: #### L 100.0100, L500.2500 #### [facility] [address] [place], [address] CNOVon 06-29-2025 CNOV Normal [facility] Anion gap in Serum or Plasma Ordered By: Marshal Rebolledo on 06-26-2025 Anion gap [Moles/Vol] 12 mmol/L - [facility] BUN/creatinine ratioOrdered By: Marshal Rebolledo on 06-26-2025 Urea nitrogen/Creatinine [Mass ratio] 29.5 mg/mg High - [facility] Basic Metabolic Profile (BMP )on 06-26-2025 BUN/CRE 29.5 RATIO High 08-[address] [facility] Comment on above: Performed By: #### L 500.2500 #### [facility] [address] [place], [address] Calcium [Mass/Vol] 8.7 mg/dL Normal 7.6-11.0 [facility] Comment on above: Performed By: #### L 500.2500 #### [facility] [address], [address] Chloride [Moles/Vol] 95 mmol/L Low 98-108 [facility] Comment on above: Performed By: #### L 500.2500 #### [facility] [address] [place], [address] CO2 [Moles/Vol] 32.3 mmol/L High 21.0-32.[address] [facility] Comment on above: Performed By: #### L 500.2500 #### [facility] [address] [place], [address] Creatinine [Mass/Vol] 1.29 mg/dL High 0.70-1.20 [facility] Comment on above: Performed By: #### L 500.2500 #### [facility] [address] [place], [address] ECRCL 38.55 ml/min Low 50-[address] [facility] Comment on above: Performed By: #### L 500.2500 #### [facility] [address] [place], [address] GAP 12 Normal 5-[address] [facility] Comment on above: Performed By: #### L 500.2500 #### [facility] [address] [place], [address] GFR/1.73 sq M.predicted among non-blacks MDRD (S/P/Bld) [Vol rate/Area] 53 mL/min/{1.73_m2} Low >[address] [facility] Comment on above: Result Comment: mL/m in/1.73m2 CKD-EPI Creatinine Equation (2020) Performed By: #### L 500.2500 #### [facility] [address] [place], [address] Glucose [Mass/Vol] 99 mg/dL Normal 70-99 [facility] Comment on above: Performed By: #### L 500.2500 #### [facility] [address] [place], [address] Potassium [Moles/Vol] 3.2 mmol/L Low 3.3-5.1 [facility] Comment on above: Performed By: #### L 500.2500 #### [facility] [address] [place], [address] Sodium [Moles/Vol] 138 mmol/L Normal 133-145 [facility] Comment on above: Performed By: #### L 500.2500 #### [facility] [address] [place], [address] Urea nitrogen [Mass/Vol] 38 mg/dL High 4-[address] [facility] Comment on above: Performed By: #### L 500.2500 #### [facility] [address], [address] Carbon dioxide, total [Moles /volume] in Central venous bloodOrdered By: Marshal Rebolledo on 06-26-2025 CO2 [Moles/Vol] 32.3 mmol/L High 21.0-32.[address] [facility] Chloride assayOrdered By: Ramesh Rebolledo on 06-26-2025 Chloride [Moles/Vol] 95 mmol/L Low 98-108 [facility] Discharge Instructionon 06-09 Discharge Instruction [facility] Medical Records Department [address] [place] [address] Instructions for Home/Discharge Instructions 06/26/25 1033 MR#: [id number] Acct: [id number] Name: SRINI LUIS Rep #: [id number] : 1935 89 From: Marshal Rebolledo MD PCP: Dr. Ronaldo Pleitez MD Status:ADM IN Discharge Instructions DC O2, CPAP, BIPAP needs Home O2 Discharge instructions: No Dressing / Incision Discharge Activity: Return to Normal Activity Weight Bearing Status: Weight bearing as tolerated Dressing / Incision Call your doctor if you observe: Fever of 101 or Higher, Coldness, Increased Pain, Numbness or Tingling, Change in Color, Inability to urinate, Inability to have a bowel movement, Shortness of breath, Dizziness, Fainting spells, Swelling in the ankles, Chest pain, Prolonged hiccupping, Increased palpitations (irregular heartbeat) and Calf discomfort Follow Up Care When: IN 2 WEEKS Test Results: Test results from this visit will be discussed in further detail at your follow-up appointment, if applicable. Discharge Plan Admission Admit Date/Time: 06/23/25 16:21 Primary Reason for Your Visit: cellulitis, B/L, Left>Right Attending Provider: Marshal Rebolledo Primary Care Provider: Ronaldo Pleitez Consulting Providers: Mary Prather Discharge Orders/Prescriptions Prescriptions: New sennosides-docusate sodium [Stimulant Laxative Plus] 8.6-50 mg Tablet 2 tab PO BID PRN PRN (Reason: Constipation) Qty: 0 0RF amoxicillin-pot clavulanate 875-125 mg tablet 1 tab PO BID 5 Days Qty: 10 0RF potassium chloride 20 mEq Tablet,Er Particles/Crystals 40 meq PO BIDCM 30 Days Qty: 120 0RF Continued cyanocobalamin (vitamin B-12) 1,000 mcg capsule 1,000 mcg PO DAILY cholecalciferol (vitamin D3) 25 mcg (1,000 unit) tablet 25 mcg PO DAILY multivitamin Tablet 1 tab PO DAILY Xarelto 20 mg tablet 20 mg PO QPM Rx Instructions: must administer with evening meal atorvastatin 20 mg tablet 20 mg PO QHS folic acid 1 mg Tablet 1 mg PO BREAKFAST 30 Days Qty: 30 2RF polyethylene glycol 3350 [Miralax] 17 gram/dose powder 17 g PO DAILY PRN (Reason: constipation) Qty: 238 0RF levothyroxine [Synthroid] 100 mcg tablet 100 mcg PO DAILY nitroglycerin 0.4 mg tablet, sublingual 0.4 mg sublingual Q5M Rx Instructions: do not exceed 3 doses per episode Changed furosemide 40 mg tablet 40 mg PO BID 30 Days Qty: 0 0RF Rx Instructions: TAKE 1 TABLET TWO TIMES A DAY. AM AND NOON Discontinued cephalexin 500 mg capsule 500 mg PO Q8H 5 Days Qty: 15 0RF Referrals / Follow Up: Ronaldo Pleitez MD [Primary Care Provider] - Within 1 Week (Need BMP in 1 week for hypokalemia and adjust Kcl accordingly) 06/26/25 1041 Marshal Rebolledo MD CC: Dr. Mary Prather MD; Dr. Ronaldo Pleitez MD Signed Normal [facility] Glomerular filtration rate ( GFR) estimation/1.73 sq m using serum, plasma, or whole bOrdered By: Marshal Rebolledo on 06-26-2025 GFR/1.73 sq M.predicted among non-blacks MDRD (S/P/Bld) [Vol rate/Area] 53 mL/min/{1.73_m2} Low >[address] [facility] Comment on above: mL/min/1.73m2 CKD-EP I Creatinine Equation (2020) Magnesiumon 06-26-2025 Magnesium [Mass/Vol] 2.1 mg/dL Normal 1.5-2.2 [facility] Comment on above: Performed By: #### L 501.5200, L501.2300 #### [facility] [address] [place], [place], [address] Magnesium measurement (mass/ volume)Ordered By: Marshal Rebolledo on 06-26-2025 Magnesium (Unsp spec) [Mass/Vol] 2.1 mg/dL 1.5-2.[address] [facility] Phosphoruson 06-26-2025 Phosphate [Mass/Vol] 3.9 mg/dL Normal 2.7-4.5 [facility] Comment on above: Performed By: #### L 501.5200, L501.2300 #### [facility] [address] [place], [place], [address] Potassium measurement (mass/ volume)Ordered By: Marshal Rebolledo on 06-26-2025 Potassium (Unsp spec) [Mass/Vol] 3.2 mmol/L Low 3.3-5.[address] [facility] Serum creatinine measurement (mass/volume)Ordered By: Marshal Rebolledo on 06-26-2025 Creatinine [Mass/Vol] 1.29 mg/dL High 0.70-1.20 [facility] Serum glucose measurement (m ass/volume)Ordered By: Marshal Rebolledo on 06-26-2025 Glucose [Mass/Vol] 99 mg/dL 70-99 [facility] Serum or plasma calcium gris urement (mass/volume)Ordered By: Marshal Rebolledo on 06-26-2025 Calcium [Mass/Vol] 8.7 mg/dL 7.6-11.0 [facility] Serum or plasma urea nitroge n measurement (mass/volume)Ordered By: Marshal Rebolledo on 06-26-2025 Urea nitrogen [Mass/Vol] 38 mg/dL High 4-[address] [facility] Sodium levelOrdered By: Katie Rebolledo on 06-26-2025 Sodium [Moles/Vol] 138 mmol/L 133-145 [facility] Absolute lymphocyte countOrd ered By: Mary Prather on 06-24-2025 Lymphocytes Auto (Unsp spec) [#/Vol] 0.86 10*3/uL 0.83-4.[address] [facility] Absolute neutrophil countOrd ered By: Mary Prather on 06-24-2025 Neutrophils (Bld) [#/Vol] 4.7 10*3/uL 2.0-7.[address] [facility] Automated lymphocyte count a s percentage of total leukocytesOrdered By: Mary Prather on 06-24-2025 Lymphocytes/100 WBC Auto (Unsp spec) 12.5 % Low 19-[address] [facility] Basic Metabolic Profile (BMP )on 06-24-2025 BUN/CRE 27.3 RATIO High 10-[address] [facility] Comment on above: Performed By: #### L 500.2500, L100.0100 #### [facility] [address] [place], [address] Calcium [Mass/Vol] 8.7 mg/dL Normal 7.6-11.0 [facility] Comment on above: Performed By: #### L 500.2500, L100.0100 #### [facility] [address], [address] Chloride [Moles/Vol] 94 mmol/L Low 98-108 [facility] Comment on above: Performed By: #### L 500.2500, L100.0100 #### [facility] [address], [address] CO2 [Moles/Vol] 31.4 mmol/L Normal 21.0-32.[address] [facility] Comment on above: Performed By: #### L 500.2500, L100.0100 #### [facility] [address] [place], [address] Creatinine [Mass/Vol] 1.37 mg/dL High 0.70-1.20 [facility] Comment on above: Performed By: #### L 500.2500, L100.0100 #### [facility] [address], [address] ECRCL 36.30 ml/min Low 50-[address] [facility] Comment on above: Performed By: #### L 500.2500, L100.0100 #### [facility] [address] [place], [address] GAP 13 Normal 5-[address] [facility] Comment on above: Performed By: #### L 500.2500, L100.0100 #### [facility] [address] [place], [address] GFR/1.73 sq M.predicted among non-blacks MDRD (S/P/Bld) [Vol rate/Area] 49 mL/min/{1.73_m2} Low >[address] [facility] Comment on above: Result Comment: mL/m in/1.73m2 CKD-EPI Creatinine Equation (2020) Performed By: #### L 500.2500, L100.0100 #### [facility] [address] [place], [address] Glucose [Mass/Vol] 119 mg/dL High 70-99 [facility] Comment on above: Performed By: #### L 500.2500, L100.0100 #### [facility] [address], [address] Potassium [Moles/Vol] 3.0 mmol/L Low 3.3-5.1 [facility] Comment on above: Performed By: #### L 500.2500, L100.0100 #### [facility] [address] [place], [address] Sodium [Moles/Vol] 138 mmol/L Normal 133-145 [facility] Comment on above: Performed By: #### L 500.2500, L100.0100 #### [facility] [address] [place], [address] Urea nitrogen [Mass/Vol] 37 mg/dL High 4-[address] [facility] Comment on above: Performed By: #### L 500.2500, L100.0100 #### [facility] [address], [address] Basophil percentageOrdered B y: Mary Prather on 06-24-2025 Basophils/100 WBC (Bld) 0.6 % 0-[address] [facility] Blood manual differential co mment interpretation (narrative result)Ordered By: Mary Prather on 06-24-2025 Manual differential comment Gregg (Bld) [Interp] SCANNED [facility] CBC W/Diff, Automatedon 06-09 Anisocytosis Ql (Bld) 2+ Normal [facility] Comment on above: Performed By: #### L 500.2500, L100.0100 #### [facility] [address] [place], [address] HYPOCHROMASIA 1+ Normal [facility] Comment on above: Performed By: #### L 500.2500, L100.0100 #### [facility] [address] [place], [address] SMEAR COMMENT SCANNED Normal [facility] Comment on above: Performed By: #### L 500.2500, L100.0100 #### [facility] [address] [place], [address] Eosinophil percentageOrdered By: Mary Prather on 06-24-2025 Eosinophils/100 WBC (Bld) 1.7 % 0-[address] [facility] Erythrocyte distribution wid th ratioOrdered By: Mary Prather on 06-24-2025 Erythrocyte distribution width (RBC) [Ratio] 26.6 % High 11.6-14.[address] [facility] Erythrocyte distribution wid th standard deviationOrdered By: Mary Prather on 06-24-2025 Erythrocyte distribution width (RBC) [Ratio] 108.7 fl High 35.1-43.[address] [facility] Hematocrit Auto (Bld) [Volum e fraction]Ordered By: Mary Prather on 06-24-2025 Hematocrit (Bld) [Volume fraction] 28.6 % Low 40-[address] [facility] Hemoglobin measurementOrdere d By: Mary Prather on 06-24-2025 Hemoglobin (Bld) [Mass/Vol] 9.3 g/dL Low 13.0-16.[address] [facility] Hypochromatic red blood cell detectionOrdered By: Mary Prather on 06-24-2025 Hypochromia Ql (Bld) 1+ [facility] Immature granulocytes/100 WB C Auto (Bld)Ordered By: Mary Prather on 06-24-2025 Immature granulocytes/100 WBC (Bld) 0.400 % 0.0-0.[address] [facility] Comment on above: IG% - Immature Granu locytes (promyelocytes, myelocytes and metamyelocytes) > 1% indicates that a LEFT SHIFT is Present. Laboratory - Hematology and Cell countsOrdered By: Mary Prather on 06-24-2025 Anisocytosis Ql (Bld) 2+ [facility] MCV (mean corpuscular volume ) determinationOrdered By: Mary Prather on 06-24-2025 MCV (RBC) [Entitic vol] 110.4 fL High 80-[address] [facility] Mean corpuscular hemoglobin (MCH) determinationOrdered By: Mary Prather on 06-24-2025 MCH (RBC) [Entitic mass] 35.9 pg High 27.0-32.[address] [facility] Mean corpuscular hemoglobin concentration (MCHC) determinationOrdered By: Mary Prather on 06-24-2025 MCHC (RBC) [Mass/Vol] 32.5 g/dL 32-36 [facility] Mean platelet volume determi nationOrdered By: Mary Prather on 06-24-2025 Platelet mean volume (Bld) [Entitic vol] 11.1 fL 6.2-12.[address] [facility] Monocyte percentageOrdered B y: Mary Prather on 06-24-2025 Monocytes/100 WBC (Bld) 15.6 % High 0-[address] [facility] Neutrophil percentageOrdered By: Mary Prather on 06-24-2025 Neutrophils/100 WBC (Bld) 69.2 % 47-[address] [facility] Nucleated red blood cell per centageOrdered By: Mary Prather on 06-24-2025 Nucleated RBC/100 WBC (Bld) [Ratio] 0.9 % 0-[address] [facility] Platelet countOrdered By: Rico Prather on 06-24-2025 Platelets (Bld) [#/Vol] 226 10*3/uL 150-[address] [facility] RBC Auto (Bld) [#/Vol]Ordere d By: Mary Prather on 06-24-2025 RBC (Bld) [#/Vol] 2.59 10*6/uL Low 4.6-6.2 [facility] White blood cell (WBC) count Ordered By: Mary Prather on 06-24-2025 WBC (Bld) [#/Vol] 6.9 10*3/uL 4.4-11.0 [facility] Absolute lymphocyte countOrd ered By: Jere Gorman on 06-23-2025 Lymphocytes Auto (Unsp spec) [#/Vol] 0.99 10*3/uL 0.83-4.[address] [facility] Absolute neutrophil countOrd ered By: Jere Gorman on 06-23-2025 Neutrophils (Bld) [#/Vol] 4.7 10*3/uL 2.0-7.[address] [facility] Anion gap in Serum or Plasma Ordered By: Jere Gorman on 06-23-2025 Anion gap [Moles/Vol] 13 mmol/L 5-15 [facility] Automated lymphocyte count a s percentage of total leukocytesOrdered By: Jere Gorman on 06-23-2025 Lymphocytes/100 WBC Auto (Unsp spec) 14.5 % Low 19-[address] [facility] BUN/creatinine ratioOrdered By: Jere Gorman on 06-23-2025 Urea nitrogen/Creatinine [Mass ratio] 28.4 mg/mg High 10-[address] [facility] Basic Metabolic Profile (BMP )on 06-23-2025 BUN/CRE 28.4 RATIO High 10-[address] [facility] Comment on above: Performed By: #### L 500.2500, L100.0100 #### [facility] [address], [address] Calcium [Mass/Vol] 9.0 mg/dL Normal 7.6-11.0 [facility] Comment on above: Performed By: #### L 500.2500, L100.0100 #### [facility] [address] [place], [address] Chloride [Moles/Vol] 92 mmol/L Low 98-108 [facility] Comment on above: Performed By: #### L 500.2500, L100.0100 #### [facility] [address] [place], [address] CO2 [Moles/Vol] 32.5 mmol/L High 21.0-32.[address] [facility] Comment on above: Performed By: #### L 500.2500, L100.0100 #### [facility] [address], [address] Creatinine [Mass/Vol] 1.43 mg/dL High 0.70-1.20 [facility] Comment on above: Performed By: #### L 500.2500, L100.0100 #### [facility] [address] [place], [address] ECRCL 36.06 ml/min Low 50-[address] [facility] Comment on above: Performed By: #### L 500.2500, L100.0100 #### [facility] [address] [place], [address] GAP 13 Normal 5-[address] [facility] Comment on above: Performed By: #### L 500.2500, L100.0100 #### [facility] [address], [address] GFR/1.73 sq M.predicted among non-blacks MDRD (S/P/Bld) [Vol rate/Area] 47 mL/min/{1.73_m2} Low >[address] [facility] Comment on above: Result Comment: mL/m in/1.73m2 CKD-EPI Creatinine Equation (2020) Performed By: #### L 500.2500, L100.0100 #### [facility] [address] [place], [address] Glucose [Mass/Vol] 160 mg/dL High 70-99 [facility] Comment on above: Performed By: #### L 500.2500, L100.0100 #### [facility] [address], [address] Potassium [Moles/Vol] 3.3 mmol/L Normal 3.3-5.1 [facility] Comment on above: Performed By: #### L 500.2500, L100.0100 #### [facility] [address] [place], [address] Sodium [Moles/Vol] 138 mmol/L Normal 133-145 [facility] Comment on above: Performed By: #### L 500.2500, L100.0100 #### [facility] [address] [place], [address] Urea nitrogen [Mass/Vol] 41 mg/dL High 4-[address] [facility] Comment on above: Performed By: #### L 500.2500, L100.0100 #### [facility] [address] [place], [address] Basic metabolic 2000 panelon 06-23-2025 Anion gap [Moles/Vol] 14 mmol/L Normal 8-15 [facility] Comment on above: Order Comment: Speci men Type: BLOOD SPECIMENOrdering Facility: [facility] Address: [address] [place] [address] Performed By: #### 2 4321-2 ####[facility]TONL[facility] [id number] [place] [address] [place] Calcium [Mass/Vol] 9.0 mg/dL Normal 8.5-10.2 [facility] Comment on above: Order Comment: Speci men Type: BLOOD SPECIMENOrdering Facility: [facility] Address: [address] [place] [address] Performed By: #### 2 4321-2 ####[facility] SYSTEMNCLIA [id number] [place] [address] [place] Chloride [Moles/Vol] 91 mmol/L Low 98-107 [facility] Comment on above: Order Comment: Speci men Type: BLOOD SPECIMENOrdering Facility: [facility] Address: [address] [place] [address] Performed By: #### 2 4321-2 ####[facility]ENNCR[facility]HA [id number] [place] [address] [place] CO2 [Moles/Vol] 31 mmol/L High 22-30 [facility] Comment on above: Order Comment: Speci men Type: BLOOD SPECIMENOrdering Facility: [facility] Address: [address] [place] [address] Performed By: #### 2 4321-2 ####[facility] [id number] [place] [address] [place] Creatinine [Mass/Vol] 1.34 mg/dL High 0.73-1.22 [facility] Comment on above: Order Comment: Speci men Type: BLOOD SPECIMENOrdering Facility: [facility] Address: [address] [place] [address] Performed By: #### 2 4321-2 ####[facility] SYSTEMNCLIA [id number] [place] [address] [place] eGFRcr SerPlBld CKD-EPI 2020 51 mL/min/1.73m??? Low >=60 [facility] Comment on above: Order Comment: Speci men Type: BLOOD SPECIMENOrdering Facility: [facility] Address: [address] [place] [address] Result Comment: Concepción mated Glomerular Filtration Rate [...] actual GFR. Performed By: #### 2 4321-2 ####[facility] JONHWNCLIA [id number] [place] [address] [place] Glucose [Mass/Vol] 117 mg/dL High 74-99 [facility] Comment on above: Order Comment: Speci men Type: BLOOD SPECIMENOrdering Facility: [facility] Address: [address] [place], [place] [address] Result Comment: The [place] Diabetes Association (ADA) provides guidance for cutoff [...] Standards of Medical Care in Diabetes 2016, [place] Diabetes Association. Diabetes Care. 2016.39(Suppl 1). Performed By: #### 2 4321-2 ####[facility] CENTERWROBERTLIA [id number] [place] [address] [place] Potassium [Moles/Vol] 3.2 mmol/L Low 3.7-5.1 [facility] Comment on above: Order Comment: Speci men Type: BLOOD SPECIMENOrdering Facility: [facility] Address: [address] [place], [place] [address] Performed By: #### 2 4321-2 ####[facility] CENTERWNCLIA [id number] [place] [address] [place] Sodium [Moles/Vol] 136 mmol/L Normal 136-144 [facility] Comment on above: Order Comment: Speci men Type: BLOOD SPECIMENOrdering Facility: [facility] Address: [address] [place], [place] [address] Performed By: #### 2 4321-2 ####[facility] SYSTEMNCLIA [id number] [place] [address] [place] Urea nitrogen [Mass/Vol] 41 mg/dL High 9-24 [facility] Comment on above: Order Comment: Speci men Type: BLOOD SPECIMENOrdering Facility: [facility] Address: [address] [place] [address] Performed By: #### 2 4321-2 ####[facility]ENTERWNCLIA [id number] [place] [address] [place] Basophil percentageOrdered B y: Jere Gorman on 06-23-2025 Basophils/100 WBC (Bld) 0.6 % 0-[address] [facility] Blood polychromasia detectio n by light microscopyOrdered By: Jere Gorman on 06-23-2025 Polychromasia LM Ql (Bld) 1+ [facility] CBC W Auto Differential pane l (Bld)on 06-23-2025 Basophils (Bld) [#/Vol] 0.04 10*3/uL Normal <0.11 [facility] Comment on above: Order Comment: Speci men Type: BLOOD SPECIMENOrdering Facility: [facility] Address: [address] [place] [address] Performed By: #### 5 7021-8 ####[facility] DAYTONLIA [id number] [place] [address] [place] Basophils/100 WBC (Bld) 0.5 % Normal [facility] Comment on above: Order Comment: Speci men Type: BLOOD SPECIMENOrdering Facility: [facility] Address: [address] [place] [address] Performed By: #### 5 7021-8 ####[facility] SYSTEMNCLIA [id number] [place] [address] [place] Differential cell count method Nom (Bld) Auto Normal [facility] Comment on above: Order Comment: Speci men Type: BLOOD SPECIMENOrdering Facility: [facility] Address: [address] [place] [address] Performed By: #### 5 7021-8 ####[facility] MILLWNCLIA [id number] [place] [address] [place] Eosinophils (Bld) [#/Vol] 0.07 10*3/uL Normal <0.46 [facility] Comment on above: Order Comment: Speci men Type: BLOOD SPECIMENOrdering Facility: [facility] Address: [address] [place] [address] Performed By: #### 5 7021-8 ####[facility] DAYTONLIA [id number] [place] [address] [place] Eosinophils/100 WBC (Bld) 0.9 % Normal [facility] Comment on above: Order Comment: Speci men Type: BLOOD SPECIMENOrdering Facility: [facility] Address: [address] [place] [address] Performed By: #### 5 7021-8 ####[facility] DAYTONLIA [id number] [place] [address] [place] Erythrocyte distribution width (RBC) [Ratio] 26.8 % High 11.5-15.0 [facility] Comment on above: Order Comment: Speci men Type: BLOOD SPECIMENOrdering Facility: [facility] Address: [address] [place] [address] Performed By: #### 5 7021-8 ####[facility] DAYTONLIA [id number] [place] [address] [place] Hematocrit (Bld) [Volume fraction] 29.9 % Low 39.0-51.0 [facility] Comment on above: Order Comment: Speci men Type: BLOOD SPECIMENOrdering Facility: [facility] Address: [address] [place] [address] Performed By: #### 5 7021-8 ####[facility] SYSTEMNCLIA [id number] [place] [address] [place] Hemoglobin (Bld) [Mass/Vol] 9.9 g/dL Low 13.0-17.0 [facility] Comment on above: Order Comment: Speci men Type: BLOOD SPECIMENOrdering Facility: [facility] Address: [address] [place] [address] Performed By: #### 5 7021-8 ####[facility] [id number] [place] [address] [place] Immature granulocytes (Bld) [#/Vol] 0.03 10*3/uL Normal <0.10 [facility] Comment on above: Order Comment: Speci men Type: BLOOD SPECIMENOrdering Facility: [facility] Address: [address] [place] [address] Performed By: #### 5 7021-8 ####[facility] [id number] [place] [address] [place] Immature granulocytes/100 WBC (Bld) 0.4 % Normal [facility] Comment on above: Order Comment: Speci men Type: BLOOD SPECIMENOrdering Facility: [facility] Address: [address] [place] [address] Performed By: #### 5 7021-8 ####[facility] [id number] [place] [address] [place] Lymphocytes (Bld) [#/Vol] 0.93 10*3/uL Low 1.00-4.00 [facility] Comment on above: Order Comment: Speci men Type: BLOOD SPECIMENOrdering Facility: [facility] Address: [address] [place] [address] Performed By: #### 5 7021-8 ####[facility] [id number] [place] [address] [place] Lymphocytes/100 WBC (Bld) 12.2 % Normal [facility] Comment on above: Order Comment: Speci men Type: BLOOD SPECIMENOrdering Facility: [facility] Address: [address] [place] [address] Performed By: #### 5 7021-8 ####[facility] JONHEMMETMALENA [id number] [address] [place] MCH (RBC) [Entitic mass] 36.4 pg High 26.0-34.0 [facility] Comment on above: Order Comment: Speci men Type: BLOOD SPECIMENOrdering Facility: [facility] Address: [address] [place] [address] Performed By: #### 5 7021-8 ####[facility] SYSTEMNCManuel [id number] [place] [address] [place] MCHC (RBC) [Mass/Vol] 33.1 g/dL Normal 30.5-36.0 [facility] Comment on above: Order Comment: Speci men Type: BLOOD SPECIMENOrdering Facility: [facility] Address: [address] [place] [address] Performed By: #### 5 7021-8 ####[facility] SYSTEMNCA [id number] [place] [address] [place] MCV (RBC) [Entitic vol] 109.9 fL High 80.0-100.0 [facility] Comment on above: Order Comment: Speci men Type: BLOOD SPECIMENOrdering Facility: [facility] Address: [address] [place] [address] Performed By: #### 5 7021-8 ####[facility] SYSTEMNCLIA [id number] [place] [address] [place] Monocytes (Bld) [#/Vol] 1.16 10*3/uL High <0.87 [facility] Comment on above: Order Comment: Speci men Type: BLOOD SPECIMENOrdering Facility: [facility] Address: [address] [place] [address] Performed By: #### 5 7021-8 ####[facility] JONHWNCLIA [id number] [place] [address] [place] Monocytes/100 WBC (Bld) 15.2 % Normal [facility] Comment on above: Order Comment: Speci men Type: BLOOD SPECIMENOrdering Facility: [facility] Address: [address] [place] [address] Performed By: #### 5 7021-8 ####[facility]TONL[facility] [id number] [place] [address] [place] Neutrophils (Bld) [#/Vol] 5.40 10*3/uL Normal 1.45-7.50 [facility] Comment on above: Order Comment: Speci men Type: BLOOD SPECIMENOrdering Facility: [facility] Address: [address] [place] [address] Performed By: #### 5 7021-8 ####[facility] [id number] [place] [address] [place] Neutrophils/100 WBC (Bld) 70.8 % Normal [facility] Comment on above: Order Comment: Speci men Type: BLOOD SPECIMENOrdering Facility: [facility] Address: [address] [place] [address] Performed By: #### 5 7021-8 ####[facility]TONL[facility] [id number] [place] [address] [place] Nucleated RBC (Bld) [#/Vol] 0.06 10*3/uL High <0.01 [facility] Comment on above: Order Comment: Speci men Type: BLOOD SPECIMENOrdering Facility: [facility] Address: [address] [place] [address] Performed By: #### 5 7021-8 ####[facility] DAYTONLIA [id number] [place] [address] [place] Nucleated RBC/100 WBC (Bld) [Ratio] 0.8 /100 WBC Normal [facility] Comment on above: Order Comment: Speci men Type: BLOOD SPECIMENOrdering Facility: [facility] Address: [address] [place] [address] Performed By: #### 5 7021-8 ####[facility] [id number] [place] [address] [place] Platelet mean volume (Bld) [Entitic vol] 10.3 fL Normal 9.0-12.7 [facility] Comment on above: Order Comment: Speci men Type: BLOOD SPECIMENOrdering Facility: [facility] Address: [address] [place] [address] Performed By: #### 5 7021-8 ####[facility] [id number] [place] [address] [place] Platelets (Bld) [#/Vol] 238 10*3/uL Normal 150-400 [facility] Comment on above: Order Comment: Speci men Type: BLOOD SPECIMENOrdering Facility: [facility] Address: [address] [place] [address] Performed By: #### 5 7021-8 ####[facility] [id number] [place] [address] [place] RBC (Bld) [#/Vol] 2.72 10*6/uL Low 4.20-6.00 [facility] Comment on above: Order Comment: Speci men Type: BLOOD SPECIMENOrdering Facility: [facility] Address: [address] [place] [address] Performed By: #### 5 7021-8 ####[facility] [id number] [place] [address] [place] WBC (Bld) [#/Vol] 7.63 10*3/uL Normal 3.70-11.00 [facility] Comment on above: Order Comment: Speci men Type: BLOOD SPECIMENOrdering Facility: [facility] Address: [address] [place] [address] Performed By: #### 5 7021-8 ####[facility] DAYTONLIA [id number] [place] [address] [place] CBC W/Diff, Automatedon 08- HYPOCHROMASIA 1+ Normal [facility] Comment on above: Performed By: #### L 500.2500, L100.0100 #### [facility] [address] [place], [address] POLYCHROMASIA 1+ Normal [facility] Comment on above: Performed By: #### L 500.2500, L100.0100 #### [facility] [address] [place], [address] Anisocytosis Ql (Bld) 2+ Normal [facility] Comment on above: Performed By: #### L 500.2500, L100.0100 #### [facility] [address] [place], [address] PLT EST ADEQUATE Normal ADEQ [facility] Comment on above: Performed By: #### L 500.2500, L100.0100 #### [facility] [address] [place], [address] SMEAR COMMENT SCANNED Normal [facility] Comment on above: Performed By: #### L 500.2500, L100.0100 #### [facility] [address] [place], [address] CNOVon 06-23-2025 CNOV Normal [facility] CRP SerPl-mCncon 06-23-2025 CRP [Mass/Vol] 0.8 mg/dL Normal <0.9 [facility] Comment on above: Order Comment: Speci men Type: BLOOD SPECIMENOrdering Facility: [facility] Address: [address] [place] [address] Performed By: #### 1 988-5 ####[facility] LABCLIA [id number] [address] [address] [place] Carbon dioxide, total [Moles /volume] in Central venous bloodOrdered By: Jere Gorman on 06-23-2025 CO2 [Moles/Vol] 32.5 mmol/L High 21.0-32.[address] [facility] Chloride assayOrdered By: Esteban Gorman on 06-23-2025 Chloride [Moles/Vol] 92 mmol/L Low 98-108 [facility] ESR Westergren method (Bld) [Velocity]on 06-23-2025 ESR (Bld) [Velocity] 8 mm/h Normal 0-15 [facility] Comment on above: Order Comment: Speci men Type: BLOOD SPECIMENOrdering Facility: [facility] Address: [address] [place] [address] Performed By: #### 4 537-7 ####[facility] LABCLIA [id number] [address] [address] [place] Emergency Department Summary on 06-23-2025 Emergency Department Summary [facility] Medical Records Department [address] [place] [address] Emergency Department Summary 06/23/25 MR#: [id number] Acct: [id number] Name: SRINI LUIS Rep #: [id number] : 1935 89 From: Jere Gorman MD PCP: Dr. Ronaldo Pleitez MD Status:REG ER Location: ED HPI History of Present [...] has been on oral antibiotics through his [facility] physicians this redness is getting worse so they sent him in to be admitted for IV antibiotics. He denies any fever or chills. Prior similar symptoms: No Recent Illness/Hospitalization: No PFSH [facility] Medical History Cellulitis CMML (chronic myelomonocytic leukemia) [...] PO DAILY 04/09/23 History 1,000 mcg capsule multivitamin 1 tab PO DAILY 04/09/23 05/14/23 H istory rivaroxaban 20 mg tablet (Xarelto) 20 mg PO QPM 04/09/23 05/13/23 H istory atorvastatin 20 mg tablet 20 mg PO QHS 05/14/23 05/13/23 His tory folic acid 1 mg tablet 1 mg PO BREAKFAST 30 days #30 tabs 05/18/23 Unknown Rx polyethylene glycol 3350 17 17 g PO DAILY PRN constipation 10/31 Unknown Rx gram/dose oral powder (Miralax) #238 grams furosemide 40 mg tablet 40 mg PO DAILY 06/18/25 Unknown Hi story levothyroxine 100 mcg tablet 100 mcg PO DAILY 06/18/25 Unknown History (Synthroid) cephalexin 500 mg capsule 500 mg PO Q8H 5 days #15 caps 06/09 12/03 Unknown Rx metolazone 5 mg tablet 5 mg PO DAILY 06/23/25 Unknown His tory nitroglycerin 0.4 mg sublingual 0.4 mg sublingual Q5M 06/23/25 Unk nown History tablet Allergy/AdvReac Type Severity Reaction Status [...] the way up to his knee on th (more content not included)... Normal [facility] Eosinophil percentageOrdered By: Jere Gorman on 06-23-2025 Eosinophils/100 WBC (Bld) 0.9 % 0-[address] [facility] Erythrocyte distribution wid th ratioOrdered By: Jere Gorman on 06-23-2025 Erythrocyte distribution width (RBC) [Ratio] 26.7 % High 11.6-14.[address] [facility] Erythrocyte distribution wid th standard deviationOrdered By: Jere Gorman on 06-23-2025 Erythrocyte distribution width (RBC) [Ratio] 109.9 fl High 35.1-43.[address] [facility] Glomerular filtration rate ( GFR) estimation/1.73 sq m using serum, plasma, or whole bOrdered By: Jere Gorman on 06-23-2025 GFR/1.73 sq M.predicted among non-blacks MDRD (S/P/Bld) [Vol rate/Area] 47 mL/min/{1.73_m2} Low >[address] [facility] Comment on above: mL/min/1.73m2 CKD-EP I Creatinine Equation (2020) H AND P Exam - [facility] 06-23-2025 H&P Exam - Hospitalist [facility] Medical Records Department [address] [place] [address] H P Exam - Hospitalist 06/23/25 1621 MR#: [id number] Acct: [id number] Name: SRINI LUIS Rep #: [id number] : 1935 89 From: Mary Prather MD PCP: Dr. Ronaldo Pleitez MD Status:REG ER Location: ED HPI - General General Date of Admission: 06/23/25 Date of Service: 06/23/25 Chief Complaint: Increasing left lower extremity swelling HPI Narrative SRINI LUIS, is a 89-year-old male history of CABG, CVA, pacemaker, A-fib on Xarelto, hypothyroidism, CML who presented to [facility] ED 06/23/2025 with worsening cellulitis of his left lower extremity. He has chronic bilateral lower extremity swelling and about a week [...] 9.7 which appears baseline. BMP with a BUN of 41 and a [...] chills, no other new or acute complaints [facility] Medical History Cellulitis CMML (chronic myelomonocytic leukemia) Lumbar stenosis Nocturnal hypoxemia Osteoarthritis Atheroembolism of foot Myasthenia gravis Pacemaker ( 09/2022) Cerebral vascular accident ( 08/2022) Complete heart block Coronary artery disease ( 09/2022) Hypothyroidism HLD (hyperlipidemia) Benign essential HTN Home Medications ???Medication ???Instructions ???Recorded ???Last Taken ???Type cholecalciferol (vitamin D3) 25 25 mcg PO DAILY 04/09/23 05/14/23 History mcg (1,000 unit) tablet cyanocobalamin (vitamin B-12) 1,000 mcg PO DAILY 04/09/23 History 1,000 mcg capsule multivitamin 1 tab PO DAILY 04/09/23 05/14/23 H istory rivaroxaban 20 mg tablet (Xarelto) 20 mg PO QPM 04/09/23 05/13/23 H istory atorvastatin 20 mg tablet 20 mg PO QHS 05/14/23 05/13/23 His tory folic acid 1 mg tablet 1 mg PO BREAKFAST 30 days #30 tabs 05/18/23 Unknown Rx polyethylene glycol 3350 17 17 g PO DAILY PRN constipation 10/31 Unknown Rx gram/dose oral powder (Miralax) #238 grams furosemide 40 mg tablet 40 mg PO DAILY 06/18/25 Unknown Hi story levothyroxine 100 mcg tablet 100 mcg PO DAILY 06/18/25 Unknown History (Synthroid) cephalexin 500 mg capsule 500 mg PO Q8H 5 days #15 caps 06/09 12/03 Unknown Rx metolazone 5 mg tablet 5 mg PO DAILY 06/23/25 Unknown His tory nitroglycerin 0.4 mg sublingual 0.4 mg sublingual Q5M 06/23/25 Unk nown History tablet Allergy/AdvReac Type Severity Reaction Status [...] Signs Vital Signs Vital Signs: 06/23/25 13:25 06/23/25 16:20 Temperature 97.9 F Temperature Source Oral Pulse Rate 61 80 Respiratory Rate 16 15 Blood P (more content not included)... Normal [facility] Hematocrit Auto (Bld) [Volum e fraction]Ordered By: Jere Gorman on 06-23-2025 Hematocrit (Bld) [Volume fraction] 29.5 % Low 40-[address] [facility] Hemoglobin measurementOrdere d By: Jere Gorman on 06-23-2025 Hemoglobin (Bld) [Mass/Vol] 9.7 g/dL Low 13.0-16.[address] [facility] Immature granulocytes/100 WB C Auto (Bld)Ordered By: Jere Gorman on 06-23-2025 Immature granulocytes/100 WBC (Bld) 0.300 % 0.0-0.[address] [facility] Comment on above: IG% - Immature Granu locytes (promyelocytes, myelocytes and metamyelocytes) > 1% indicates that a LEFT SHIFT is Present. MCV (mean corpuscular volume ) determinationOrdered By: Jere Gorman on 06-23-2025 MCV (RBC) [Entitic vol] 111.3 fL High 80-[address] [facility] Mean corpuscular hemoglobin (MCH) determinationOrdered By: Jere Gorman on 06-23-2025 MCH (RBC) [Entitic mass] 36.6 pg High 27.0-32.[address] [facility] Mean corpuscular hemoglobin concentration (MCHC) determinationOrdered By: Jere Gorman on 06-23-2025 MCHC (RBC) [Mass/Vol] 32.9 g/dL 32-36 [facility] Mean platelet volume determi nationOrdered By: Jere Gorman on 06-23-2025 Platelet mean volume (Bld) [Entitic vol] 10.6 fL 6.2-12.[address] [facility] Monocyte percentageOrdered B y: Jere Gorman on 06-23-2025 Monocytes/100 WBC (Bld) 15.5 % High 0-[address] [facility] Neutrophil percentageOrdered By: Jere Gorman on 06-23-2025 Neutrophils/100 WBC (Bld) 68.2 % 47-[address] [facility] Nucleated red blood cell per centageOrdered By: Jere Gorman on 06-23-2025 Nucleated RBC/100 WBC (Bld) [Ratio] 0.7 % 0-[address] [facility] Platelet countOrdered By: Esteban Gorman on 06-23-2025 Platelets (Bld) [#/Vol] 230 10*3/uL 150-[address] [facility] Platelet estimateOrdered By: Jere Gorman on 06-23-2025 Platelets LM Ql (Bld) ADEQUATE ADEQ [facility] Potassium measurement (mass/ volume)Ordered By: Jere Gorman on 06-23-2025 Potassium (Unsp spec) [Mass/Vol] 3.3 mmol/L 3.3-5.[address] [facility] RBC Auto (Bld) [#/Vol]Ordere d By: Jere Gorman on 06-23-2025 RBC (Bld) [#/Vol] 2.65 10*6/uL Low 4.6-6.2 [facility] Serum creatinine measurement (mass/volume)Ordered By: Jere Gorman on 06-23-2025 Creatinine [Mass/Vol] 1.43 mg/dL High 0.70-1.20 [facility] Serum glucose measurement (m ass/volume)Ordered By: Jere Gorman on 06-23-2025 Glucose [Mass/Vol] 160 mg/dL High 70-99 [facility] Serum or plasma calcium gris urement (mass/volume)Ordered By: Jere Gorman on 06-23-2025 Calcium [Mass/Vol] 9.0 mg/dL 7.6-11.0 [facility] Serum or plasma urea nitroge n measurement (mass/volume)Ordered By: Jere Gorman on 06-23-2025 Urea nitrogen [Mass/Vol] 41 mg/dL High 4-[address] [facility] Sodium levelOrdered By: Jere Gorman on 06-23-2025 Sodium [Moles/Vol] 138 mmol/L 133-145 [facility] White blood cell (WBC) count Ordered By: Jere Gorman on 06-23-2025 WBC (Bld) [#/Vol] 6.8 10*3/uL 4.4-11.0 [facility] CNOVon 06-21-2025 CNOV Normal [facility] CNPNon 06-19-2025 CNPN Telephone ([id number]) -- SRINI LUIS ([id number]) 1935 Robyn Date Time Provider Department 06/19/25 IRAM JOHNSON [id number] During your visit today, we recorded the following information about you: Shilpa Abraham MA 06/19/2025 11:10 AM Signed Patient went to [facility] over the weekend for his swelling. He is being treated for Cellulitis and was given an antibiotic for a week. He did have a doppler and it was negative for a clot. She is asking if he should continue taking the increased dose of Lasix after a week? Iram Johnson, MARTIN.PHOTO MASK PATTERN GENERATOR 06/19/2025 11:46 AM Signed I think it [...] cellulitis along with antibiotic. Pt daughter agreeable Ginna Orellana 07/13/2025 9:50 AM Signed Daughter is calling and stating that the patient is still having issues with his swelling. She stated that his hands are swelling now, and his right hand is sore. She stated that he is still on the increased Lasix but it doesn't seem to be working. He has an aide helping him. They are all noticing the swelling being worse and it is above the knee now. She is wondering what he needs to do. He does have an echo a week from now from the Second Officer. Can you let her know what he should do Iram Johnson, MARTIN.PHOTO MASK PATTERN GENERATOR 07/13/2025 9:57 AM Signed At this point, with his advanced age, I would probably take him to the emergency room. Hand swelling is not going to be related to heart failure but the lower extremity edema that is worsening is worrisome. High dose diuretics are difficult to do at home. Shilpa Abraham MA 07/13/2025 10:24 AM Signed Patients daughter was notified of the Providers message in chart and is agreeable. Allergies As of Date: 06/19/2025 Noted Allergy Reaction SIMVASTATIN 08/17/2012 14 - Other: See Comments Comments: Elevated CK Date Reviewed: 06/09/2025 Reviewed by: Esha Jackson LPN - Fully Assessed Reason for Visit: Patient Update [1234] Prescriptions as of 07/13/2025 - potassium chloride ER (KLOR-CON M20) 20 mEq tablet Take 2 tablets by mouth two times a day. - furosemide (LASIX) 40 mg tablet Take 1 tablet by mouth two times a day. AM and noon. - atorvastatin (LIPITOR) 20 mg tablet Take [...] 09/15/2022 Xerosis cutis [L85.3] 12/14/2012 01/02/2015 Pruritus [L29.9 (more content not included)... Normal [facility] Venous Duplex US, Unilateral on 06-19-2025 Venous Duplex US, Unilateral [facility] Cardi[facility] Services [address] [place] [address] Venous Duplex US, Unilateral 06/19/25 1006 MR#: [id number] Acct: [id number] Name: SRINI LUIS Rep #: [id number] : 1935 89 From: Ned Dinh MD Attending Dr: Dr. Bryanna Tijerina MD Status: DEVYN NOLASCO Ordering Dr: Bryanna Tijerina MD Date: 06/19/25 [...] preliminary report was called and/or faxed to [facility] demonstrates pulsatile venous flow. ED. POP V [...] Ronaldo Pleitez M.D. Performed By: Jason Griffin, Alexis 06/19/25 1121 Date Ned Dinh MD CC: Dr. Bryanna Tijerina MD; Dr. Ronaldo Pleitez MD Date Dictated: 06/19/25 1006 Date Transcribed: 06/19/25 112 Talcer: Signed Normal [facility] Venous duplex ultrasound rep ortOrdered By: Ned Dinh on 06-19-2025 US Vein [facility] Cardiovascular Services [address] [place] [address] Venous Duplex US, Unilateral 06/19/25 1006 MR#: [id number] Acct: [id number] Name: SRINI LUIS Rep #:[id number] : [...] preliminary report was called and/or faxed to [facility] demonstrates pulsatile venous flow. ED. POP V [...] Ronaldo Pleitez M.D. Performed By: Jason Griffin Alexis 06/19/25 1121 Date _ Ned Dinh MD CC: Dr. Bryanna Tijerina MD; Dr. Ronaldo Pleitez MD ~ Date Dictated: 06/19/25 1006 Date Transcribed: 06/19/25 1121 Talcer: Signed [facility] Work Phone: 12 Lead EKGon 06-18-2025 12 Lead EKG [facility] Cardiovascular Services [address] [place] [address] 12 Lead EKG 06/18/252106 MR#: [id number] Acct: [id number] Name: SRINI LUIS Rep #: [id number] : 1935 89 From: Israel Rowley MD [...] undetermined Abnormal ECG Confirmed by Israel Rowley ([id number]), editor magazine BE[employer]UAN ([id number]) on 06/21/2025 9:35:00 AM Referred By: DIANE Confirmed By: Israel Rowley 06/21/25 0935 Date Israel Rowley MD CC: Dr. Ned Chew DO; Dr. Bryanna Tijerina MD; Dr. Ronaldo Pleitez MD Signed Normal [facility] Absolute lymphocyte countOrd ered By: Bryanna Tijerina on 06-18-2025 Lymphocytes Auto (Unsp spec) [#/Vol] 0.94 10*3/uL 0.83-4.[address] [facility] Absolute neutrophil countOrd ered By: Bryanna Tijerina on 06-18-2025 Neutrophils (Bld) [#/Vol] 4.8 10*3/uL 2.0-7.[address] [facility] Anion gap in Serum or Plasma Ordered By: Bryanna Tijerina on 06-18-2025 Anion gap [Moles/Vol] 10 mmol/L 5-15 [facility] Automated lymphocyte count a s percentage of total leukocytesOrdered By: Bryanna Tijerina on 06-18-2025 Lymphocytes/100 WBC Auto (Unsp spec) 13.2 % Low 19-[address] [facility] BUN/creatinine ratioOrdered By: Bryanna Tijerina on 06-18-2025 Urea nitrogen/Creatinine [Mass ratio] 21.2 mg/mg High 10-[address] [facility] Basic Metabolic Profile (BMP )on 06-18-2025 BUN/CRE 21.2 RATIO High 08-[address] [facility] Comment on above: Performed By: #### L 100.0100, L500.2500 #### [facility] Laboratory [address] [place], [address] Calcium [Mass/Vol] 9.0 mg/dL Normal 7.6-11.0 [facility] Comment on above: Performed By: #### L 100.0100, L500.2500 #### [facility] [address] [place], [address] Chloride [Moles/Vol] 98 mmol/L Normal 98-108 [facility] Comment on above: Performed By: #### L 100.0100, L500.2500 #### [facility] [address] [place], [address] CO2 [Moles/Vol] 30.8 mmol/L Normal 21.0-32.[address] [facility] Comment on above: Performed By: #### L 100.0100, L500.2500 #### [facility] [address] [place], [address] Creatinine [Mass/Vol] 1.37 mg/dL High 0.70-1.20 [facility] Comment on above: Performed By: #### L 100.0100, L500.2500 #### [facility] [address] [place], [address] ECRCL 38.13 ml/min Low 50-[address] [facility] Comment on above: Performed By: #### L 100.0100, L500.2500 #### [facility] [address], [address] GAP 10 Normal 5-[address] [facility] Comment on above: Performed By: #### L 100.0100, L500.2500 #### [facility] [address], [address] GFR/1.73 sq M.predicted among non-blacks MDRD (S/P/Bld) [Vol rate/Area] 49 mL/min/{1.73_m2} Low >[address] [facility] Comment on above: Result Comment: mL/m in/1.73m2 CKD-EPI Creatinine Equation (2020) Performed By: #### L 100.0100, L500.2500 #### [facility] [address] [place], [address] Glucose [Mass/Vol] 158 mg/dL High 70-99 [facility] Comment on above: Performed By: #### L 100.0100, L500.2500 #### [facility] [address] [place], [address] Potassium [Moles/Vol] 4.6 mmol/L Normal 3.3-5.1 [facility] Comment on above: Performed By: #### L 100.0100, L500.2500 #### [facility] [address] [place], [address] Sodium [Moles/Vol] 139 mmol/L Normal 133-145 [facility] Comment on above: Performed By: #### L 100.0100, L500.2500 #### [facility] [address], [address] Urea nitrogen [Mass/Vol] 29 mg/dL High 4-[address] [facility] Comment on above: Performed By: #### L 100.0100, L500.2500 #### [facility] [address], [address] Basophil percentageOrdered B y: Bryanna Tijerina on 06-18-2025 Basophils/100 WBC (Bld) 0.7 % 0-[address] [facility] Blood manual differential co mment interpretation (narrative result)Ordered By: Bryannamichelle Tijerina on 06-18-2025 Manual differential comment Gregg (Bld) [Interp] See comment [facility] Comment on above: ANISOCYTOSIS 3+ Blood polychromasia detectio n by light microscopyOrdered By: Bryanna Tijerina on 06-18-2025 Polychromasia LM Ql (Bld) 1+ [facility] Carbon dioxide, total [Moles /volume] in Central venous bloodOrdered By: Bryanna Tijerina on 06-18-2025 CO2 [Moles/Vol] 30.8 mmol/L 21.0-32.[address] [facility] Chloride assayOrdered By: Abhay Tijerina on 06-18-2025 Chloride [Moles/Vol] 98 mmol/L 98-108 [facility] Emergency Department Summary on 06-18-2025 Emergency Department Summary [facility] Medical Records Department [address] [place] [address] Emergency Department Summary 06/18/25 MR#: [id number] Acct: [id number] Name: SRINI LUIS Rep #: [id number] : 1935 89 From: Bryanna Tijerina MD [...] travel, hospitalizations or surgeries. Chief Complaint: Edema [facility] Medical History Cellulitis CMML (chronic myelomonocytic [...] nontender. N (more content not included)... Normal [facility] Eosinophil percentageOrdered By: Bryanna Tijerina on 06-18-2025 Eosinophils/100 WBC (Bld) 0.7 % 0-[address] [facility] Erythrocyte basophilic stipp ling detectionOrdered By: Bryanna Tijerina on 06-18-2025 Basophilic stippling LM Ql (Bld) RARE [facility] Erythrocyte distribution wid th ratioOrdered By: Bryanna Tijerina on 06-18-2025 Erythrocyte distribution width (RBC) [Ratio] 26.8 % High 11.6-14.[address] [facility] Erythrocyte distribution wid th standard deviationOrdered By: Bryanna Tijerina on 06-18-2025 Erythrocyte distribution width (RBC) [Ratio] 111.8 fl High 35.1-43.[address] [facility] Erythrocyte morphology asses smentOrdered By: Bryanna Tijerina on 06-18-2025 RBC morphology finding Nom (Bld) 1+ [facility] Glomerular filtration rate ( GFR) estimation/1.73 sq m using serum, plasma, or whole bOrdered By: Bryanna Tijerina on 06-18-2025 GFR/1.73 sq M.predicted among non-blacks MDRD (S/P/Bld) [Vol rate/Area] 49 mL/min/{1.73_m2} Low >[address] [facility] Comment on above: mL/min/1.73m2 CKD-EP I Creatinine Equation (2020) Hematocrit Auto (Bld) [Volum e fraction]Ordered By: Bryanna Tijerina on 06-18-2025 Hematocrit (Bld) [Volume fraction] 29.8 % Low 40-[address] [facility] Hemoglobin measurementOrdere d By: Bryanna Tijerina on 06-18-2025 Hemoglobin (Bld) [Mass/Vol] 9.6 g/dL Low 13.0-16.[address] [facility] Hypochromatic red blood cell detectionOrdered By: Bryanna Tijerina on 06-18-2025 Hypochromia Ql (Bld) RARE [facility] Immature granulocytes/100 WB C Auto (Bld)Ordered By: Bryanna Tijerina on 06-18-2025 Immature granulocytes/100 WBC (Bld) 0.300 % 0.0-0.[address] [facility] Comment on above: IG% - Immature Granu locytes (promyelocytes, myelocytes and metamyelocytes) > 1% indicates that a LEFT SHIFT is Present. Laboratory - Hematology and Cell countsOrdered By: Bryanna Tijerina on 06-18-2025 Anisocytosis Ql (Bld) 3+ [facility] MCV (mean corpuscular volume ) determinationOrdered By: Bryanna Tijerina on 06-18-2025 MCV (RBC) [Entitic vol] 112.5 fL High 80-[address] [facility] Mean corpuscular hemoglobin (MCH) determinationOrdered By: Bryanna Tijerina on 06-18-2025 MCH (RBC) [Entitic mass] 36.2 pg High 27.0-32.[address] [facility] Mean corpuscular hemoglobin concentration (MCHC) determinationOrdered By: Bryanna Tijerina on 06-18-2025 MCHC (RBC) [Mass/Vol] 32.2 g/dL 32-36 [facility] Mean platelet volume determi nationOrdered By: Bryanna Tijerina on 06-18-2025 Platelet mean volume (Bld) [Entitic vol] 12.5 fL High 6.2-12.[address] [facility] Monocyte percentageOrdered B y: Bryanna Tijerina on 06-18-2025 Monocytes/100 WBC (Bld) 17.3 % High 0-[address] [facility] Neutrophil percentageOrdered By: Bryanna Tijerina on 06-18-2025 Neutrophils/100 WBC (Bld) 67.8 % 47-[address] [facility] Nucleated red blood cell per centageOrdered By: Bryanna Tijerina on 06-18-2025 Nucleated RBC/100 WBC (Bld) [Ratio] 1.4 % 0-[address] [facility] Ovalocyte detectionOrdered B y: Bryanna Tijerina on 06-18-2025 Ovalocytes LM Ql (Bld) RARE [facility] Platelet countOrdered By: Abhay Tijerina on 06-18-2025 Platelets (Bld) [#/Vol] 225 10*3/uL 150-[address] [facility] Platelet morphologyOrdered B y: Bryanna Tijerina on 06-18-2025 Platelet morphology finding Nom (Bld) [facility] Platelet morphology finding Nom (Bld) LARGE [facility] Comment on above: Previous reported re sult: GIANT Edited by: JOSÉ MANUEL on 06/19/25:0128 AMENDED REPORT 06/19/25 0128 PLT MORPH previously reported as: GIANT Potassium measurement (mass/ volume)Ordered By: Bryanna Tijerina on 06-18-2025 Potassium (Unsp spec) [Mass/Vol] 4.6 mmol/L 3.3-5.[address] [facility] RBC Auto (Bld) [#/Vol]Ordere d By: Bryanna Tijerina on 06-18-2025 RBC (Bld) [#/Vol] 2.65 10*6/uL Low 4.6-6.2 [facility] Review by pathologistOrdered By: Bryanna Tijerina on 06-18-2025 Pathologist review Gregg (Unsp spec) [Interp] March [facility] Serum creatinine measurement (mass/volume)Ordered By: Bryanna Tijerina on 06-18-2025 Creatinine [Mass/Vol] 1.37 mg/dL High 0.70-1.20 [facility] Serum glucose measurement (m ass/volume)Ordered By: Bryanna Tijerina on 06-18-2025 Glucose [Mass/Vol] 158 mg/dL High 70-99 [facility] Serum or plasma calcium gris urement (mass/volume)Ordered By: Bryanna Tijerina on 06-18-2025 Calcium [Mass/Vol] 9.0 mg/dL 7.6-11.0 [facility] Serum or plasma urea nitroge n measurement (mass/volume)Ordered By: Bryanna Tijerina on 06-18-2025 Urea nitrogen [Mass/Vol] 29 mg/dL High 4-[address] [facility] Sodium levelOrdered By: Ned Tijerina on 06-18-2025 Sodium [Moles/Vol] 139 mmol/L 133-145 [facility] White blood cell (WBC) count Ordered By: Bryanna Tijerina on 06-18-2025 WBC (Bld) [#/Vol] 7.1 10*3/uL 4.4-11.0 [facility] CNPMichelle 06-16-2025 MAURICION Telephone ([id number]) -- KIERRASRINI ([id number]) 1935 M Date Time Provider Department 06/16/25 IRAM JOHNSON [id number] During your visit today, we recorded the [...] what he needs to do Iram Johnson, CAKE PRESS OPERATOR HELPER.[facility] 06/16/2025 2:08 PM Signed His Lasix order says that he can take an extra 20 mg of Lasix daily if his swelling increases. Has he been doing that? Lakesha Pabon MA 06/16/2025 2:54 PM Signed Pt called in stating he has only been taking only 20mg twice daily. 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 Normal [facility] CBC W Auto Differential pane l (Bld)on 06-09-2025 Basophils (Bld) [#/Vol] 0.07 10*3/uL Normal <0.11 [facility] Comment on above: Order Comment: Speci men Type: BLOOD SPECIMENOrdering Facility: [facility] Address: [address] [place] [address] Performed By: #### 5 7021-8 ####[facility]ENTERWROBERTLIA [id number] [place] [address] [place] Basophils/100 WBC (Bld) 1.0 % Normal [facility] Comment on above: Order Comment: Speci men Type: BLOOD SPECIMENOrdering Facility: [facility] Address: [address] [place] [address] Performed By: #### 5 7021-8 ####[facility] [id number] [place] [address] [place] Differential cell count method Nom (Bld) Auto Normal [facility] Comment on above: Order Comment: Speci men Type: BLOOD SPECIMENOrdering Facility: [facility] Address: [address] [place] [address] Performed By: #### 5 7021-8 ####[facility]TON[facility] [id number] [place] [address] [place] Eosinophils (Bld) [#/Vol] 0.07 10*3/uL Normal <0.46 [facility] Comment on above: Order Comment: Speci men Type: BLOOD SPECIMENOrdering Facility: [facility] Address: [address] [place] [address] Performed By: #### 5 7021-8 ####[facility] [id number] [place] [address] [place] Eosinophils/100 WBC (Bld) 1.0 % Normal [facility] Comment on above: Order Comment: Speci men Type: BLOOD SPECIMENOrdering Facility: [facility] Address: [address] [place] [address] Performed By: #### 5 7021-8 ####[facility] JONHEMMETM[facility]ENA [id number] [place] [address] [place] Erythrocyte distribution width (RBC) [Ratio] 26.0 % High 11.5-15.0 [facility] Comment on above: Order Comment: Speci men Type: BLOOD SPECIMENOrdering Facility: [facility] Address: [address] [place] [address] Performed By: #### 5 7021-8 ####[facility] [id number] [place] [address] [place] Hematocrit (Bld) [Volume fraction] 26.9 % Low 39.0-51.0 [facility] Comment on above: Order Comment: Speci men Type: BLOOD SPECIMENOrdering Facility: [facility] Address: [address] [place] [address] Performed By: #### 5 7021-8 ####[facility] [id number] [place] [address] [place] Hemoglobin (Bld) [Mass/Vol] 9.0 g/dL Low 13.0-17.0 [facility] Comment on above: Order Comment: Speci men Type: BLOOD SPECIMENOrdering Facility: [facility] Address: [address] [place] [address] Performed By: #### 5 7021-8 ####[facility] SYSTEM[facility]CL[facility] [id number] [place] [address] [place] Immature granulocytes (Bld) [#/Vol] 0.05 10*3/uL Normal <0.10 [facility] Comment on above: Order Comment: Speci men Type: BLOOD SPECIMENOrdering Facility: [facility] Address: [address] [place] [address] Performed By: #### 5 7021-8 ####[facility] JONHEMMETKOST[facility] [id number] [place] [address] [place] Immature granulocytes/100 WBC (Bld) 0.7 % Normal [facility] Comment on above: Order Comment: Speci men Type: BLOOD SPECIMENOrdering Facility: [facility] Address: [address] [place] [address] Performed By: #### 5 7021-8 ####[facility] [id number] [place] [address] [place] Lymphocytes (Bld) [#/Vol] 1.00 10*3/uL Normal 1.00-4.00 [facility] Comment on above: Order Comment: Speci men Type: BLOOD SPECIMENOrdering Facility: [facility] Address: [address] [place] [address] Performed By: #### 5 7021-8 ####[facility] [id number] [place] [address] [place] Lymphocytes/100 WBC (Bld) 13.6 % Normal [facility] Comment on above: Order Comment: Speci men Type: BLOOD SPECIMENOrdering Facility: [facility] Address: [address] [place] [address] Performed By: #### 5 7021-8 ####[facility] [id number] [place] [address] [place] MCH (RBC) [Entitic mass] 36.6 pg High 26.0-34.0 [facility] Comment on above: Order Comment: Speci men Type: BLOOD SPECIMENOrdering Facility: [facility] Address: [address] [place] [address] Performed By: #### 5 7021-8 ####[facility] [id number] [place] [address] [place] MCHC (RBC) [Mass/Vol] 33.5 g/dL Normal 30.5-36.0 [facility] Comment on above: Order Comment: Speci men Type: BLOOD SPECIMENOrdering Facility: [facility] Address: [address] [place] [address] Performed By: #### 5 7021-8 ####[facility] [id number] [place] [address] [place] MCV (RBC) [Entitic vol] 109.3 fL High 80.0-100.0 [facility] Comment on above: Order Comment: Speci men Type: BLOOD SPECIMENOrdering Facility: [facility] Address: [address] [place] [address] Performed By: #### 5 7021-8 ####[facility] [id number] [place] [address] [place] Monocytes (Bld) [#/Vol] 0.94 10*3/uL High <0.87 [facility] Comment on above: Order Comment: Speci men Type: BLOOD SPECIMENOrdering Facility: [facility] Address: [address] [place] [address] Performed By: #### 5 7021-8 ####[facility] [id number] [place] [address] [place] Monocytes/100 WBC (Bld) 12.8 % Normal [facility] Comment on above: Order Comment: Speci men Type: BLOOD SPECIMENOrdering Facility: [facility] Address: [address] [place] [address] Performed By: #### 5 7021-8 ####[facility] [id number] [place] [address] [place] Neutrophils (Bld) [#/Vol] 5.23 10*3/uL Normal 1.45-7.50 [facility] Comment on above: Order Comment: Speci men Type: BLOOD SPECIMENOrdering Facility: [facility] Address: [address] [place] [address] Performed By: #### 5 7021-8 ####[facility] JONHEMMETKOSTAA [id number] [place] [address] [place] Neutrophils/100 WBC (Bld) 70.9 % Normal [facility] Comment on above: Order Comment: Speci men Type: BLOOD SPECIMENOrdering Facility: [facility] Address: [address] [place] [address] Performed By: #### 5 7021-8 ####[facility] [id number] [place] [address] [place] Nucleated RBC (Bld) [#/Vol] 0.09 10*3/uL High <0.01 [facility] Comment on above: Order Comment: Speci men Type: BLOOD SPECIMENOrdering Facility: [facility] Address: [address] [place] [address] Performed By: #### 5 7021-8 ####[facility] [id number] [place] [address] [place] Nucleated RBC/100 WBC (Bld) [Ratio] 1.2 /100 WBC Normal [facility] Comment on above: Order Comment: Speci men Type: BLOOD SPECIMENOrdering Facility: [facility] Address: [address] [place] [address] Performed By: #### 5 7021-8 ####[facility] [id number] [place] [address] [place] Platelet mean volume (Bld) [Entitic vol] 11.9 fL Normal 9.0-12.7 [facility] Comment on above: Order Comment: Speci men Type: BLOOD SPECIMENOrdering Facility: [facility] Address: [address] [place] [address] Performed By: #### 5 7021-8 ####[facility] [id number] [place] [address] [place] Platelets (Bld) [#/Vol] 291 10*3/uL Normal 150-400 [facility] Comment on above: Order Comment: Speci men Type: BLOOD SPECIMENOrdering Facility: [facility] Address: [address] [place] [address] Performed By: #### 5 7021-8 ####[facility] [id number] [place] [address] [place] RBC (Bld) [#/Vol] 2.46 10*6/uL Low 4.20-6.00 [facility] Comment on above: Order Comment: Speci men Type: BLOOD SPECIMENOrdering Facility: [facility] Address: [address] [place] [address] Performed By: #### 5 7021-8 ####[facility] [id number] [place] [address] [place] WBC (Bld) [#/Vol] 7.36 10*3/uL Normal 3.70-11.00 [facility] Comment on above: Order Comment: Speci men Type: BLOOD SPECIMENOrdering Facility: [facility] Address: [address] [place] [address] Performed By: #### 5 7021-8 ####[facility] [id number] [place] [address] [place] CNOVon 06-05-2025 CNOV Normal [facility] CNOVon 05-30-2025 CNOV Normal [facility] CBC W Auto Differential pane l (Bld)on 05-26-2025 Basophils (Bld) [#/Vol] 0.06 10*3/uL Normal <0.11 [facility] Comment on above: Order Comment: Speci men Type: BLOOD SPECIMENOrdering Facility: [facility] Address: [address] [place] [address] Performed By: #### 5 7021-8 ####[facility] JONHWNCLIA [id number] [place] [address] [place] Basophils/100 WBC (Bld) 0.9 % Normal [facility] Comment on above: Order Comment: Speci men Type: BLOOD SPECIMENOrdering Facility: [facility] Address: [address] [place] [address] Performed By: #### 5 7021-8 ####[facility] [id number] [place] [address] [place] Differential cell count method Nom (Bld) Auto Normal [facility] Comment on above: Order Comment: Speci men Type: BLOOD SPECIMENOrdering Facility: [facility] Address: [address] [place] [address] Performed By: #### 5 7021-8 ####[facility]TONL[facility] [id number] [place] [address] [place] Eosinophils (Bld) [#/Vol] 0.06 10*3/uL Normal <0.46 [facility] Comment on above: Order Comment: Speci men Type: BLOOD SPECIMENOrdering Facility: [facility] Address: [address] [place] [address] Performed By: #### 5 7021-8 ####[facility]ENTERWNCLIA [id number] [place] [address] [place] Eosinophils/100 WBC (Bld) 0.9 % Normal [facility] Comment on above: Order Comment: Speci men Type: BLOOD SPECIMENOrdering Facility: [facility] Address: [address] [place] [address] Performed By: #### 5 7021-8 ####[facility] SYSTEMNCLIA [id number] [place] [address] [place] Erythrocyte distribution width (RBC) [Ratio] 24.2 % High 11.5-15.0 [facility] Comment on above: Order Comment: Speci men Type: BLOOD SPECIMENOrdering Facility: [facility] Address: [address] [place] [address] Performed By: #### 5 7021-8 ####[facility] [id number] [place] [address] [place] Hematocrit (Bld) [Volume fraction] 26.9 % Low 39.0-51.0 [facility] Comment on above: Order Comment: Speci men Type: BLOOD SPECIMENOrdering Facility: [facility] Address: [address] [place] [address] Performed By: #### 5 7021-8 ####[facility] [id number] [place] [address] [place] Hemoglobin (Bld) [Mass/Vol] 8.9 g/dL Low 13.0-17.0 [facility] Comment on above: Order Comment: Speci men Type: BLOOD SPECIMENOrdering Facility: [facility] Address: [address] [place] [address] Performed By: #### 5 7021-8 ####[facility]TONL[facility] [id number] [place] [address] [place] Immature granulocytes (Bld) [#/Vol] 0.03 10*3/uL Normal <0.10 [facility] Comment on above: Order Comment: Speci men Type: BLOOD SPECIMENOrdering Facility: [facility] Address: [address] [place] [address] Performed By: #### 5 7021-8 ####[facility] SYSTEMNCLIA [id number] [place] [address] [place] Immature granulocytes/100 WBC (Bld) 0.5 % Normal [facility] Comment on above: Order Comment: Speci men Type: BLOOD SPECIMENOrdering Facility: [facility] Address: [address] [place] [address] Performed By: #### 5 7021-8 ####[facility] SYSTEMMALENA [id number] [place] [address] [place] Lymphocytes (Bld) [#/Vol] 0.96 10*3/uL Low 1.00-4.00 [facility] Comment on above: Order Comment: Speci men Type: BLOOD SPECIMENOrdering Facility: [facility] Address: [address] [place] [address] Performed By: #### 5 7021-8 ####[facility]ROBERTUT[facility] [id number] [place] [address] [place] Lymphocytes/100 WBC (Bld) 15.0 % Normal [facility] Comment on above: Order Comment: Speci men Type: BLOOD SPECIMENOrdering Facility: [facility] Address: [address] [place] [address] Performed By: #### 5 7021-8 ####[facility] SYSTEMMALENA [id number] [place] [address] [place] MCH (RBC) [Entitic mass] 35.9 pg High 26.0-34.0 [facility] Comment on above: Order Comment: Speci men Type: BLOOD SPECIMENOrdering Facility: [facility] Address: [address] [place] [address] Performed By: #### 5 7021-8 ####[facility] SYSTEMNCLIA [id number] [place] [address] [place] MCHC (RBC) [Mass/Vol] 33.1 g/dL Normal 30.5-36.0 [facility] Comment on above: Order Comment: Speci men Type: BLOOD SPECIMENOrdering Facility: [facility] Address: [address] [place] [address] Performed By: #### 5 7021-8 ####[facility] SYSTEMNCLIA [id number] [place] [address] [place] MCV (RBC) [Entitic vol] 108.5 fL High 80.0-100.0 [facility] Comment on above: Order Comment: Speci men Type: BLOOD SPECIMENOrdering Facility: [facility] Address: [address] [place] [address] Performed By: #### 5 7021-8 ####[facility]TONL[facility] [id number] [place] [address] [place] Monocytes (Bld) [#/Vol] 0.98 10*3/uL High <0.87 [facility] Comment on above: Order Comment: Speci men Type: BLOOD SPECIMENOrdering Facility: [facility] Address: [address] [place] [address] Performed By: #### 5 7021-8 ####[facility] [id number] [place] [address] [place] Monocytes/100 WBC (Bld) 15.3 % Normal [facility] Comment on above: Order Comment: Speci men Type: BLOOD SPECIMENOrdering Facility: [facility] Address: [address] [place] [address] Performed By: #### 5 7021-8 ####[facility] SYSTEMROBERTA [id number] [place] [address] [place] Neutrophils (Bld) [#/Vol] 4.33 10*3/uL Normal 1.45-7.50 [facility] Comment on above: Order Comment: Speci men Type: BLOOD SPECIMENOrdering Facility: [facility] Address: [address] [place] [address] Performed By: #### 5 7021-8 ####[facility] SYSTEMNCLI [id number] [place] [address] [place] Neutrophils/100 WBC (Bld) 67.4 % Normal [facility] Comment on above: Order Comment: Speci men Type: BLOOD SPECIMENOrdering Facility: [facility] Address: [address] [place] [address] Performed By: #### 5 7021-8 ####[facility] [id number] [place] [address] [place] Nucleated RBC (Bld) [#/Vol] 0.06 10*3/uL High <0.01 [facility] Comment on above: Order Comment: Speci men Type: BLOOD SPECIMENOrdering Facility: [facility] Address: [address] [place] [address] Performed By: #### 5 7021-8 ####[facility] [id number] [place] [address] [place] Nucleated RBC/100 WBC (Bld) [Ratio] 0.9 /100 WBC Normal [facility] Comment on above: Order Comment: Speci men Type: BLOOD SPECIMENOrdering Facility: [facility] Address: [address] [place] [address] Performed By: #### 5 7021-8 ####[facility] [id number] [place] [address] [place] Platelet mean volume (Bld) [Entitic vol] 11.3 fL Normal 9.0-12.7 [facility] Comment on above: Order Comment: Speci men Type: BLOOD SPECIMENOrdering Facility: [facility] Address: [address] [place] [address] Performed By: #### 5 7021-8 ####[facility] [id number] [place] [address] [place] Platelets (Bld) [#/Vol] 311 10*3/uL Normal 150-400 [facility] Comment on above: Order Comment: Speci men Type: BLOOD SPECIMENOrdering Facility: [facility] Address: [address] [place] [address] Performed By: #### 5 7021-8 ####[facility] MARVA MIRANDAMALENA [id number] [place] [address] [place] RBC (Bld) [#/Vol] 2.48 10*6/uL Low 4.20-6.00 [facility] Comment on above: Order Comment: Speci men Type: BLOOD SPECIMENOrdering Facility: [facility] Address: [address] [place] [address] Performed By: #### 5 7021-8 ####[facility] JONHWilliamsMALENA [id number] [place] [address] [place] WBC (Bld) [#/Vol] 6.42 10*3/uL Normal 3.70-11.00 [facility] Comment on above: Order Comment: Speci men Type: BLOOD SPECIMENOrdering Facility: [facility] Address: [address] [place] [address] Performed By: #### 5 7021-8 ####[facility] JONHEMMETMALENA [id number] [place] [address] [place] CNPNon 05-26-2025 CNPN Normal [facility] CNOVon 05-25-2025 CNOV Normal [facility] CNPNon 05-22-2025 CNPN Normal [facility] CBC W Auto Differential pane l (Bld)on 05-11-2025 Basophils (Bld) [#/Vol] 0.06 10*3/uL Normal <0.11 [facility] Comment on above: Order Comment: Speci men Type: BLOOD SPECIMENOrdering Facility: [facility] Address: [address] [place] [address] Performed By: #### 5 7021-8 ####[facility] MARVA RUBENNCRADHA [id number] [place] [address] [place] Basophils/100 WBC (Bld) 1.0 % Normal [facility] Comment on above: Order Comment: Speci men Type: BLOOD SPECIMENOrdering Facility: [facility] Address: [address] [place] [address] Performed By: #### 5 7021-8 ####[facility] DAYTONL[facility] [id number] [place] [address] [place] Differential cell count method Nom (Bld) Auto Normal [facility] Comment on above: Order Comment: Speci men Type: BLOOD SPECIMENOrdering Facility: [facility] Address: [address] [place] [address] Performed By: #### 5 7021-8 ####[facility] [id number] [place] [address] [place] Eosinophils (Bld) [#/Vol] 0.07 10*3/uL Normal <0.46 [facility] Comment on above: Order Comment: Speci men Type: BLOOD SPECIMENOrdering Facility: [facility] Address: [address] [place] [address] Performed By: #### 5 7021-8 ####[facility] [id number] [place] [address] [place] Eosinophils/100 WBC (Bld) 1.2 % Normal [facility] Comment on above: Order Comment: Speci men Type: BLOOD SPECIMENOrdering Facility: [facility] Address: [address] [place] [address] Performed By: #### 5 7021-8 ####[facility] [id number] [place] [address] [place] Erythrocyte distribution width (RBC) [Ratio] 23.8 % High 11.5-15.0 [facility] Comment on above: Order Comment: Speci men Type: BLOOD SPECIMENOrdering Facility: [facility] Address: [address] [place] [address] Performed By: #### 5 7021-8 ####[facility] [id number] [place] [address] [place] Hematocrit (Bld) [Volume fraction] 27.1 % Low 39.0-51.0 [facility] Comment on above: Order Comment: Speci men Type: BLOOD SPECIMENOrdering Facility: [facility] Address: [address] [place] [address] Performed By: #### 5 7021-8 ####[facility] [id number] [place] [address] [place] Hemoglobin (Bld) [Mass/Vol] 9.2 g/dL Low 13.0-17.0 [facility] Comment on above: Order Comment: Speci men Type: BLOOD SPECIMENOrdering Facility: [facility] Address: [address] [place] [address] Performed By: #### 5 7021-8 ####[facility] [id number] [place] [address] [place] Immature granulocytes (Bld) [#/Vol] 0.04 10*3/uL Normal <0.10 [facility] Comment on above: Order Comment: Speci men Type: BLOOD SPECIMENOrdering Facility: [facility] Address: [address] [place] [address] Performed By: #### 5 7021-8 ####[facility] [id number] [place] [address] [place] Immature granulocytes/100 WBC (Bld) 0.7 % Normal [facility] Comment on above: Order Comment: Speci men Type: BLOOD SPECIMENOrdering Facility: [facility] Address: [address] [place] [address] Performed By: #### 5 7021-8 ####[facility] SYSTEMNCLIA [id number] [place] [address] [place] Lymphocytes (Bld) [#/Vol] 1.06 10*3/uL Normal 1.00-4.00 [facility] Comment on above: Order Comment: Speci men Type: BLOOD SPECIMENOrdering Facility: [facility] Address: [address] [place] [address] Performed By: #### 5 7021-8 ####[facility] [id number] [place] [address] [place] Lymphocytes/100 WBC (Bld) 17.5 % Normal [facility] Comment on above: Order Comment: Speci men Type: BLOOD SPECIMENOrdering Facility: [facility] Address: [address] [place] [address] Performed By: #### 5 7021-8 ####[facility] [id number] [place] [address] [place] MCH (RBC) [Entitic mass] 36.7 pg High 26.0-34.0 [facility] Comment on above: Order Comment: Speci men Type: BLOOD SPECIMENOrdering Facility: [facility] Address: [address] [place] [address] Performed By: #### 5 7021-8 ####[facility] [id number] [place] [address] [place] MCHC (RBC) [Mass/Vol] 33.9 g/dL Normal 30.5-36.0 [facility] Comment on above: Order Comment: Speci men Type: BLOOD SPECIMENOrdering Facility: [facility] Address: [address] [place] [address] Performed By: #### 5 7021-8 ####[facility] SYSTEMNCLI [id number] [place] [address] [place] MCV (RBC) [Entitic vol] 108.0 fL High 80.0-100.0 [facility] Comment on above: Order Comment: Speci men Type: BLOOD SPECIMENOrdering Facility: [facility] Address: [address] [place] [address] Performed By: #### 5 7021-8 ####[facility] [id number] [place] [address] [place] Monocytes (Bld) [#/Vol] 0.77 10*3/uL Normal <0.87 [facility] Comment on above: Order Comment: Speci men Type: BLOOD SPECIMENOrdering Facility: [facility] Address: [address] [place] [address] Performed By: #### 5 7021-8 ####[facility] [id number] [place] [address] [place] Monocytes/100 WBC (Bld) 12.7 % Normal [facility] Comment on above: Order Comment: Speci men Type: BLOOD SPECIMENOrdering Facility: [facility] Address: [address] [place] [address] Performed By: #### 5 7021-8 ####[facility] [id number] [place] [address] [place] Neutrophils (Bld) [#/Vol] 4.06 10*3/uL Normal 1.45-7.50 [facility] Comment on above: Order Comment: Speci men Type: BLOOD SPECIMENOrdering Facility: [facility] Address: [address] [place] [address] Performed By: #### 5 7021-8 ####[facility] [id number] [place] [address] [place] Neutrophils/100 WBC (Bld) 66.9 % Normal [facility] Comment on above: Order Comment: Speci men Type: BLOOD SPECIMENOrdering Facility: [facility] Address: [address] [place] [address] Performed By: #### 5 7021-8 ####[facility] JONHEMMETMALENA [id number] [place] [address] [place] Nucleated RBC (Bld) [#/Vol] 0.06 10*3/uL High <0.01 [facility] Comment on above: Order Comment: Speci men Type: BLOOD SPECIMENOrdering Facility: [facility] Address: [address] [place] [address] Performed By: #### 5 7021-8 ####[facility] [id number] [place] [address] [place] Nucleated RBC/100 WBC (Bld) [Ratio] 1.0 /100 WBC Normal [facility] Comment on above: Order Comment: Speci men Type: BLOOD SPECIMENOrdering Facility: [facility] Address: [address] [place] [address] Performed By: #### 5 7021-8 ####[facility] DAYTONLIA [id number] [place] [address] [place] Platelet mean volume (Bld) [Entitic vol] 12.3 fL Normal 9.0-12.7 [facility] Comment on above: Order Comment: Speci men Type: BLOOD SPECIMENOrdering Facility: [facility] Address: [address] [place] [address] Performed By: #### 5 7021-8 ####[facility] SYSTEMNCLIA [id number] [place] [address] [place] Platelets (Bld) [#/Vol] 231 10*3/uL Normal 150-400 [facility] Comment on above: Order Comment: Speci men Type: BLOOD SPECIMENOrdering Facility: [facility] Address: [address] [place] [address] Performed By: #### 5 7021-8 ####[facility] DAYTONLIA [id number] [place] [address] [place] RBC (Bld) [#/Vol] 2.51 10*6/uL Low 4.20-6.00 [facility] Comment on above: Order Comment: Speci men Type: BLOOD SPECIMENOrdering Facility: [facility] Address: [address] [place] [address] Performed By: #### 5 7021-8 ####[facility] SYSTEMOKSTAA [id number] [place] [address] [place] WBC (Bld) [#/Vol] 6.06 10*3/uL Normal 3.70-11.00 [facility] Comment on above: Order Comment: Speci men Type: BLOOD SPECIMENOrdering Facility: [facility] Address: [address] [place] [address] Performed By: #### 5 7021-8 ####[facility] [id number] [place] [address] [place] CNPNon 05-05-2025 CNPN Normal [facility] CBC W Auto Differential pane l (Bld)on 04-28-2025 Basophils (Bld) [#/Vol] 0.06 10*3/uL Normal <0.11 [facility] Comment on above: Order Comment: Speci men Type: BLOOD SPECIMENOrdering Facility: [facility] Address: [address] [place] [address] Performed By: #### 5 7021-8 ####[facility] DAYTONLIA [id number] [place] [address] [place] Basophils/100 WBC (Bld) 1.0 % Normal [facility] Comment on above: Order Comment: Speci men Type: BLOOD SPECIMENOrdering Facility: [facility] Address: [address] [place] [address] Performed By: #### 5 7021-8 ####[facility] JONHSOLIA [id number] [place] [address] [place] Differential cell count method Nom (Bld) Auto Normal [facility] Comment on above: Order Comment: Speci men Type: BLOOD SPECIMENOrdering Facility: [facility] Address: [address] [place] [address] Performed By: #### 5 7021-8 ####[facility] SYSTEMROBERTUT[facility] [id number] [place] [address] [place] Eosinophils (Bld) [#/Vol] 0.11 10*3/uL Normal <0.46 [facility] Comment on above: Order Comment: Speci men Type: BLOOD SPECIMENOrdering Facility: [facility] Address: [address] [place] [address] Performed By: #### 5 7021-8 ####[facility] [id number] [place] [address] [place] Eosinophils/100 WBC (Bld) 1.7 % Normal [facility] Comment on above: Order Comment: Speci men Type: BLOOD SPECIMENOrdering Facility: [facility] Address: [address] [place] [address] Performed By: #### 5 7021-8 ####[facility] [id number] [place] [address] [place] Erythrocyte distribution width (RBC) [Ratio] 22.5 % High 11.5-15.0 [facility] Comment on above: Order Comment: Speci men Type: BLOOD SPECIMENOrdering Facility: [facility] Address: [address] [place] [address] Performed By: #### 5 7021-8 ####[facility] SYSTEMNCLI [id number] [place] [address] [place] Hematocrit (Bld) [Volume fraction] 28.9 % Low 39.0-51.0 [facility] Comment on above: Order Comment: Speci men Type: BLOOD SPECIMENOrdering Facility: [facility] Address: [address] [place] [address] Performed By: #### 5 7021-8 ####[facility] [id number] [place] [address] [place] Hemoglobin (Bld) [Mass/Vol] 9.7 g/dL Low 13.0-17.0 [facility] Comment on above: Order Comment: Speci men Type: BLOOD SPECIMENOrdering Facility: [facility] Address: [address] [place] [address] Performed By: #### 5 7021-8 ####[facility] [id number] [place] [address] [place] Immature granulocytes (Bld) [#/Vol] 10*3/uL Normal <0.10 [facility] Comment on above: Order Comment: Speci men Type: BLOOD SPECIMENOrdering Facility: [facility] Address: [address] [place] [address] Performed By: #### 5 7021-8 ####[facility] [id number] [place] [address] [place] Immature granulocytes/100 WBC (Bld) 0.3 % Normal [facility] Comment on above: Order Comment: Speci men Type: BLOOD SPECIMENOrdering Facility: [facility] Address: [address] [place] [address] Performed By: #### 5 7021-8 ####[facility] [id number] [place] [address] [place] Lymphocytes (Bld) [#/Vol] 1.11 10*3/uL Normal 1.00-4.00 [facility] Comment on above: Order Comment: Speci men Type: BLOOD SPECIMENOrdering Facility: [facility] Address: [address] [place] [address] Performed By: #### 5 7021-8 ####[facility] SYSTEMNCCONSTANCEA [id number] [place] [address] [place] [facility] Lymphocytes/100 WBC (Bld) 17.6 % Normal [facility] Comment on above: Order Comment: Speci men Type: BLOOD SPECIMENOrdering Facility: [facility] Address: [address] [place] [address] Performed By: #### 5 7021-8 ####[facility] [id number] [place] [address] [place] MCH (RBC) [Entitic mass] 35.8 pg High 26.0-34.0 [facility] Comment on above: Order Comment: Speci men Type: BLOOD SPECIMENOrdering Facility: [facility] Address: [address] [place] [address] Performed By: #### 5 7021-8 ####[facility] SYSTEMNCA [id number] [place] [address] [place] MCHC (RBC) [Mass/Vol] 33.6 g/dL Normal 30.5-36.0 [facility] Comment on above: Order Comment: Speci men Type: BLOOD SPECIMENOrdering Facility: [facility] Address: [address] [place] [address] Performed By: #### 5 7021-8 ####[facility] [id number] [place] [address] [place] MCV (RBC) [Entitic vol] 106.6 fL High 80.0-100.0 [facility] Comment on above: Order Comment: Speci men Type: BLOOD SPECIMENOrdering Facility: [facility] Address: [address] [place] [address] Performed By: #### 5 7021-8 ####[facility] [id number] [place] [address] [place] Monocytes (Bld) [#/Vol] 0.90 10*3/uL High <0.87 [facility] Comment on above: Order Comment: Speci men Type: BLOOD SPECIMENOrdering Facility: [facility] Address: [address] [place] [address] Performed By: #### 5 7021-8 ####[facility] [id number] [place] [address] [place] Monocytes/100 WBC (Bld) 14.3 % Normal [facility] Comment on above: Order Comment: Speci men Type: BLOOD SPECIMENOrdering Facility: [facility] Address: [address] [place] [address] Performed By: #### 5 7021-8 ####[facility] [id number] [place] [address] [place] Neutrophils (Bld) [#/Vol] 4.09 10*3/uL Normal 1.45-7.50 [facility] Comment on above: Order Comment: Speci men Type: BLOOD SPECIMENOrdering Facility: [facility] Address: [address] [place] [address] Performed By: #### 5 7021-8 ####[facility] [id number] [place] [address] [place] Neutrophils/100 WBC (Bld) 65.1 % Normal [facility] Comment on above: Order Comment: Speci men Type: BLOOD SPECIMENOrdering Facility: [facility] Address: [address] [place] [address] Performed By: #### 5 7021-8 ####[facility]TONL[facility] [id number] [place] [address] [place] Nucleated RBC (Bld) [#/Vol] 10*3/uL Normal <0.01 [facility] Comment on above: Order Comment: Speci men Type: BLOOD SPECIMENOrdering Facility: [facility] Address: [address] [place] [address] Performed By: #### 5 7021-8 ####[facility] SYSTEMNCLI [id number] [place] [address] [place] Nucleated RBC/100 WBC (Bld) [Ratio] 0.0 /100 WBC Normal [facility] Comment on above: Order Comment: Speci men Type: BLOOD SPECIMENOrdering Facility: [facility] Address: [address] [place] [address] Performed By: #### 5 7021-8 ####[facility] SYSTEMNCLI [id number] [place] [address] [place] Platelet mean volume (Bld) [Entitic vol] 12.3 fL Normal 9.0-12.7 [facility] Comment on above: Order Comment: Speci men Type: BLOOD SPECIMENOrdering Facility: [facility] Address: [address] [place] [address] Performed By: #### 5 7021-8 ####[facility] SYSTEMNCLIA [id number] [place] [address] [place] Platelets (Bld) [#/Vol] 266 10*3/uL Normal 150-400 [facility] Comment on above: Order Comment: Speci men Type: BLOOD SPECIMENOrdering Facility: [facility] Address: [address] [place] [address] Performed By: #### 5 7021-8 ####[facility]TONL[facility] [id number] [place] [address] [place] RBC (Bld) [#/Vol] 2.71 10*6/uL Low 4.20-6.00 [facility] Comment on above: Order Comment: Speci men Type: BLOOD SPECIMENOrdering Facility: [facility] Address: [address] [place] [address] Performed By: #### 5 7021-8 ####[facility] RUBENMALENA [id number] [place] [address] [place] WBC (Bld) [#/Vol] 6.29 10*3/uL Normal 3.70-11.00 [facility] Comment on above: Order Comment: Speci men Type: BLOOD SPECIMENOrdering Facility: [facility] Address: [address] [place] [address] Performed By: #### 5 7021-8 ####[facility] JONHJUAN JOSE [id number] [place] [address] [place] Basic metabolic 2000 panelon 04-14-2025 Anion gap [Moles/Vol] 13 mmol/L Normal 8-15 [facility] Comment on above: Order Comment: Speci men Type: BLOOD SPECIMENOrdering Facility: [facility] Address: [address] [place] [address] Performed By: #### 2 4321-2 ####[facility] JONHEMMETMALENA [id number] [place] [address] [place] Calcium [Mass/Vol] 9.4 mg/dL Normal 8.5-10.2 [facility] Comment on above: Order Comment: Speci men Type: BLOOD SPECIMENOrdering Facility: [facility] Address: [address] [place] [address] Performed By: #### 2 4321-2 ####[facility] JONHEMMETKOSTAA [id number] [place] [address] [place] Chloride [Moles/Vol] 92 mmol/L Low 98-107 [facility] Comment on above: Order Comment: Speci men Type: BLOOD SPECIMENOrdering Facility: [facility] Address: [address] [place] [address] Performed By: #### 2 4321-2 ####[facility]ENTERWNCLIA [id number] [place] [address] [place] CO2 [Moles/Vol] 31 mmol/L High 22-30 [facility] Comment on above: Order Comment: Speci men Type: BLOOD SPECIMENOrdering Facility: [facility] Address: [address] [place] [address] Performed By: #### 2 4321-2 ####[facility] DAYTONLI [id number] [place] [address] [place] Creatinine [Mass/Vol] 1.19 mg/dL Normal 0.73-1.22 [facility] Comment on above: Order Comment: Speci men Type: BLOOD SPECIMENOrdering Facility: [facility] Address: [address] [place] [address] Performed By: #### 2 4321-2 ####[facility] [id number] [place] [address] [place] Creatinine and Glomerular filtration rate.predicted panel (S/P/Bld) 58 mL/min/1.73m??? Low >=60 [facility] Comment on above: Order Comment: Speci men Type: BLOOD SPECIMENOrdering Facility: [facility] Address: [address] [place] [address] Result Comment: Concepción mated Glomerular Filtration Rate [...] actual GFR. Performed By: #### 2 4321-2 ####[facility]ENTERWNCLIA [id number] [place] [address] [place] Glucose [Mass/Vol] 145 mg/dL High 74-99 [facility] Comment on above: Order Comment: Speci men Type: BLOOD SPECIMENOrdering Facility: [facility] Address: [address] [place], [place] [address] Result Comment: The [place] Diabetes Association (ADA) provides guidance for cutoff [...] Standards of Medical Care in Diabetes 2016, [place] Diabetes Association. Diabetes Care. 2016.39(Suppl 1). Performed By: #### 2 4321-2 ####[facility]ENTERWLAKEWOOD HEALTH CENTERA [id number] [place] [address] [place] Potassium [Moles/Vol] 4.3 mmol/L Normal 3.7-5.1 [facility] Comment on above: Order Comment: Speci men Type: BLOOD SPECIMENOrdering Facility: [facility] Address: [address] [place] [address] Performed By: #### 2 4321-2 ####[facility] CENTERWMALIA [id number] [place] [address] [place] Sodium [Moles/Vol] 136 mmol/L Normal 136-144 [facility] Comment on above: Order Comment: Speci men Type: BLOOD SPECIMENOrdering Facility: [facility] Address: [address] [place], [place] [address] Performed By: #### 2 4321-2 ####[facility] DAYTONLIA [id number] [place] [address] [place] Urea nitrogen [Mass/Vol] 37 mg/dL High 9-24 [facility] Comment on above: Order Comment: Speci men Type: BLOOD SPECIMENOrdering Facility: [facility] Address: [address] [place] [address] Performed By: #### 2 4321-2 ####[facility] SYSTEMKOSTAA [id number] [place] [address] [place] CBC W Auto Differential pane l (Bld)on 04-14-2025 Basophils (Bld) [#/Vol] 0.06 10*3/uL Normal <0.11 [facility] Comment on above: Order Comment: Speci men Type: BLOOD SPECIMENOrdering Facility: [facility] Address: [address] [place] [address] Performed By: #### 5 7021-8 ####[facility] [id number] [place] [address] [place] Basophils/100 WBC (Bld) 1.0 % Normal [facility] Comment on above: Order Comment: Speci men Type: BLOOD SPECIMENOrdering Facility: [facility] Address: [address] [place] [address] Performed By: #### 5 7021-8 ####[facility] SYSTEMROBERTA [id number] [place] [address] [place] Differential cell count method Nom (Bld) Auto Normal [facility] Comment on above: Order Comment: Speci men Type: BLOOD SPECIMENOrdering Facility: [facility] Address: [address] [place] [address] Performed By: #### 5 7021-8 ####[facility] [id number] [place] [address] [place] Eosinophils (Bld) [#/Vol] 0.07 10*3/uL Normal <0.46 [facility] Comment on above: Order Comment: Speci men Type: BLOOD SPECIMENOrdering Facility: [facility] Address: [address] [place] [address] Performed By: #### 5 7021-8 ####[facility] MILLWROBERTLIA [id number] [place] [address] [place] Eosinophils/100 WBC (Bld) 1.2 % Normal [facility] Comment on above: Order Comment: Speci men Type: BLOOD SPECIMENOrdering Facility: [facility] Address: [address] [place] [address] Performed By: #### 5 7021-8 ####[facility] SYSTEMROBERTLIA [id number] [place] [address] [place] Erythrocyte distribution width (RBC) [Ratio] 21.8 % High 11.5-15.0 [facility] Comment on above: Order Comment: Speci men Type: BLOOD SPECIMENOrdering Facility: [facility] Address: [address] [place] [address] Performed By: #### 5 7021-8 ####[facility] SYSTEMKOSTAA [id number] [place] [address] [place] Hematocrit (Bld) [Volume fraction] 30.8 % Low 39.0-51.0 [facility] Comment on above: Order Comment: Speci men Type: BLOOD SPECIMENOrdering Facility: [facility] Address: [address] [place] [address] Performed By: #### 5 7021-8 ####[facility] SYSTEMROBERTLIA [id number] [place] [address] [place] Hemoglobin (Bld) [Mass/Vol] 10.3 g/dL Low 13.0-17.0 [facility] Comment on above: Order Comment: Speci men Type: BLOOD SPECIMENOrdering Facility: [facility] Address: [address] [place] [address] Performed By: #### 5 7021-8 ####[facility] SYSTEMNCLIA [id number] [place] [address] [place] Immature granulocytes (Bld) [#/Vol] 10*3/uL Normal <0.10 [facility] Comment on above: Order Comment: Speci men Type: BLOOD SPECIMENOrdering Facility: [facility] Address: [address] [place] [address] Performed By: #### 5 7021-8 ####[facility] SYSTEMNC[facility] [id number] [place] [address] [place] Immature granulocytes/100 WBC (Bld) 0.3 % Normal [facility] Comment on above: Order Comment: Speci men Type: BLOOD SPECIMENOrdering Facility: [facility] Address: [address] [place] [address] Performed By: #### 5 7021-8 ####[facility] SYSTEMNCLI [id number] [place] [address] [place] Lymphocytes (Bld) [#/Vol] 1.01 10*3/uL Normal 1.00-4.00 [facility] Comment on above: Order Comment: Speci men Type: BLOOD SPECIMENOrdering Facility: [facility] Address: [address] [place] [address] Performed By: #### 5 7021-8 ####[facility] SYSTEMNCLIA [id number] [place] [address] [place] Lymphocytes/100 WBC (Bld) 17.6 % Normal [facility] Comment on above: Order Comment: Speci men Type: BLOOD SPECIMENOrdering Facility: [facility] Address: [address] [place] [address] Performed By: #### 5 7021-8 ####[facility] SYSTEMNCLIA [id number] [place] [address] [place] MCH (RBC) [Entitic mass] 36.4 pg High 26.0-34.0 [facility] Comment on above: Order Comment: Speci men Type: BLOOD SPECIMENOrdering Facility: [facility] Address: [address] [place] [address] Performed By: #### 5 7021-8 ####[facility] HASEEB [id number] [place] [address] [place] MCHC (RBC) [Mass/Vol] 33.4 g/dL Normal 30.5-36.0 [facility] Comment on above: Order Comment: Speci men Type: BLOOD SPECIMENOrdering Facility: [facility] Address: [address] [place] [address] Performed By: #### 5 7021-8 ####[facility] SYSTEMMALENA [id number] [place] [address] [place] MCV (RBC) [Entitic vol] 108.8 fL High 80.0-100.0 [facility] Comment on above: Order Comment: Speci men Type: BLOOD SPECIMENOrdering Facility: [facility] Address: [address] [place] [address] Performed By: #### 5 7021-8 ####[facility] SYSTEMMALENA [id number] [place] [address] [place] Monocytes (Bld) [#/Vol] 0.85 10*3/uL Normal <0.87 [facility] Comment on above: Order Comment: Speci men Type: BLOOD SPECIMENOrdering Facility: [facility] Address: [address] [place] [address] Performed By: #### 5 7021-8 ####[facility] SYSTEMKOSTAA [id number] [place] [address] [place] Monocytes/100 WBC (Bld) 14.8 % Normal [facility] Comment on above: Order Comment: Speci men Type: BLOOD SPECIMENOrdering Facility: [facility] Address: [address] [place] [address] Performed By: #### 5 7021-8 ####[facility] MILLWNCLIA [id number] [place] [address] [place] Neutrophils (Bld) [#/Vol] 3.74 10*3/uL Normal 1.45-7.50 [facility] Comment on above: Order Comment: Speci men Type: BLOOD SPECIMENOrdering Facility: [facility] Address: [address] [place] [address] Performed By: #### 5 7021-8 ####[facility] DAYTONLIA [id number] [place] [address] [place] Neutrophils/100 WBC (Bld) 65.1 % Normal [facility] Comment on above: Order Comment: Speci men Type: BLOOD SPECIMENOrdering Facility: [facility] Address: [address] [place] [address] Performed By: #### 5 7021-8 ####[facility] DAYTONLIA [id number] [place] [address] [place] Nucleated RBC (Bld) [#/Vol] 0.02 10*3/uL High <0.01 [facility] Comment on above: Order Comment: Speci men Type: BLOOD SPECIMENOrdering Facility: [facility] Address: [address] [place] [address] Performed By: #### 5 7021-8 ####[facility] DAYTONLIA [id number] [place] [address] [place] Nucleated RBC/100 WBC (Bld) [Ratio] 0.3 /100 WBC Normal [facility] Comment on above: Order Comment: Speci men Type: BLOOD SPECIMENOrdering Facility: [facility] Address: [address] [place] [address] Performed By: #### 5 7021-8 ####[facility] SYSTEMNCLIA [id number] [place] [address] [place] Platelet mean volume (Bld) [Entitic vol] 11.6 fL Normal 9.0-12.7 [facility] Comment on above: Order Comment: Speci men Type: BLOOD SPECIMENOrdering Facility: [facility] Address: [address] [place] [address] Performed By: #### 5 7021-8 ####[facility] SYSTEMNCA [id number] [place] [address] [place] Platelets (Bld) [#/Vol] 250 10*3/uL Normal 150-400 [facility] Comment on above: Order Comment: Speci men Type: BLOOD SPECIMENOrdering Facility: [facility] Address: [address] [place] [address] Performed By: #### 5 7021-8 ####[facility] [id number] [place] [address] [place] RBC (Bld) [#/Vol] 2.83 10*6/uL Low 4.20-6.00 [facility] Comment on above: Order Comment: Speci men Type: BLOOD SPECIMENOrdering Facility: [facility] Address: [address] [place] [address] Performed By: #### 5 7021-8 ####[facility] SYSTEMNCA [id number] [place] [address] [place] WBC (Bld) [#/Vol] 5.75 10*3/uL Normal 3.70-11.00 [facility] Comment on above: Order Comment: Speci men Type: BLOOD SPECIMENOrdering Facility: [facility] Address: [address] [place] [address] Performed By: #### 5 7021-8 ####[facility] SYSTEMNCLIA [id number] [place] [address] [place] CNOVon 04-07-2025 CNOV Office Visit ([id number] ) -- SRINI LUIS ([id number]) 1935 M Date Time Provider Department 04/07/25 11:40 AM IRAM JOHNSON [id number] During your visit today, we recorded the following information about you: Pulse Blood pressure Weight Height 83/minute 130/68 78.5 kg 1.702 m Iram Johnson, CAKE PRESS OPERATOR HELPER.[facility] 04/07/2025 11:40 AM Signed [facility] CARDIOLOG[facility] Ronaldo Pleitez MD SUBJECTIVE: Srini [...] to chronic myelomonocytic leukemia treated with erythropoietin ([facility]) 11/16/2024 B12 deficiency 07/11/2020 Benign hypertension CAD (coronary artery disease) CHB (complete heart block) ([facility]) 09/17/2022 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; Confirmed Blk below His by His Bundle Electrogram Chronic atrial fibrillation ([facility]) 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 ([facility]) 12/01/2022 CVA (cerebral vascular accident) ([facility]) 08/22/2022 Diverticulosis H/O echocardiogram 09/16/2022 EF 68?5 %, mod concentric LVH, mod TR, mild-mod MR with mod MAC History of anemia History of CVA (cerebrovascular accident) 08/22/2022 Pontine infarction, R>L History of stress test 10/12/2024 EF 43%, mild ischemia involving the apex 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 [...] RIGHT OP SURGERY Right 12/18/2020 Dr Arreola [facility] ARTHROPLASTY TOTAL SHOULDER 11/09/2008 right ARTHROSCOPY OF JOINT UNLISTED 1999 Elbow right CABG (4) VEIN GRAFTS AND ARTERIAL GRAFT(S) 07/21/2021 In [facility] COLONOSCOPY FLX DX W/COLLJ SPEC WHEN [...] mouth once vivian (more content not included)... [facility] CNOV Office Visit ([id number] ) -- SRINI LUIS ([id number]) 1935 M Date Time Provider Department 04/07/25 11:00 AM [facility] [id number] During your visit today, we recorded the following information about you: Allergies As of Date: 04/07/2025 Noted Allergy Reaction SIMVASTATIN 08/17/2012 14 - Other: See Comments Comments: Elevated CK Date Reviewed: 04/07/2025 Reviewed by: Iram Johnson, CAKE PRESS OPERATOR HELPER.PHOTO MASK PATTERN GENERATOR - Fully Assessed Reason for Visit: Permanent Pacemaker [1364] Visit Diagnosis:Pacemaker reprogramming/check [Z45.018] Order(s):CARDIAC IMPLANTABLE DEVICE CHECK [[id number]] Order #: [id number] FUTURE CARDIAC IMPLANTABLE DEVICE CHECK [[id number]] Order #: [id number]. 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 Normal [facility] ECG COMPLETEon 04-07-2025 ECG COMPLETE Ventricular Rate : 8 3 BPM Atrial Rate : 85 BPM QRS Duration : 164 ms Q-T Interval : 478 ms QTC Calculation(Bazett) : 561 ms Calculated R [place] : 264 degrees Calculated T [place] : 59 degrees Sinus rhythm 1st degree AV block Right bundle branch block Premature ventricular complexes Abnormal ECG When compared with ECG of 18-Sep-2022 06:17, 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 Confirmed by OSCAR GUTIERREZ MD ([id number]) on 04/15/2025 11:39:30 AM NAME : SRINI LUIS PID : [id number] : 1935 Gender : Male Race : ORD : [id number] Procedure Date : Apr 07 2025 11:13:14 Edit Date : Apr 15 2025 11:39:31 Diagnosis: Sinus rhythm 1st degree AV block Right bundle branch block Premature ventricular complexes Abnormal ECG When compared with ECG of 18-Sep-2022 06:17, 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 Confirmed by OSCAR GUTIERREZ MD ([id number]) on 04/15/2025 11:39:30 AM Test Reason : Location : 201 : [employer] Overread By : OSCAR GUTIERREZ MD Edited By : OSCAR GUTIERREZ MD Referred By : , Acquired by : ruba, [facility] CNPNon 04-05-2025 CNPN Normal [facility] CBC W Auto Differential pane l (Bld)on 03-31-2025 Basophils (Bld) [#/Vol] 0.04 10*3/uL Normal <0.11 [facility] Comment on above: Order Comment: Speci men Type: BLOOD SPECIMENOrdering Facility: [facility] Address: [address] [place] [address] Performed By: #### 5 7021-8 ####[facility] [id number] [place] [address] [place] Basophils/100 WBC (Bld) 0.8 % Normal [facility] Comment on above: Order Comment: Speci men Type: BLOOD SPECIMENOrdering Facility: [facility] Address: [address] [place] [address] Performed By: #### 5 7021-8 ####[facility] [id number] [place] [address] [place] Differential cell count method Nom (Bld) Auto Normal [facility] Comment on above: Order Comment: Speci men Type: BLOOD SPECIMENOrdering Facility: [facility] Address: [address] [place] [address] Performed By: #### 5 7021-8 ####[facility] [id number] [place] [address] [place] Eosinophils (Bld) [#/Vol] 0.11 10*3/uL Normal <0.46 [facility] Comment on above: Order Comment: Speci men Type: BLOOD SPECIMENOrdering Facility: [facility] Address: [address] [place] [address] Performed By: #### 5 7021-8 ####[facility] [id number] [place] [address] [place] Eosinophils/100 WBC (Bld) 2.1 % Normal [facility] Comment on above: Order Comment: Speci men Type: BLOOD SPECIMENOrdering Facility: [facility] Address: [address] [place] [address] Performed By: #### 5 7021-8 ####[facility] [id number] [place] [address] [place] Erythrocyte distribution width (RBC) [Ratio] 22.5 % High 11.5-15.0 [facility] Comment on above: Order Comment: Speci men Type: BLOOD SPECIMENOrdering Facility: [facility] Address: [address] [place] [address] Performed By: #### 5 7021-8 ####[facility] [id number] [place] [address] [place] Hematocrit (Bld) [Volume fraction] 26.4 % Low 39.0-51.0 [facility] Comment on above: Order Comment: Speci men Type: BLOOD SPECIMENOrdering Facility: [facility] Address: [address] [place] [address] Performed By: #### 5 7021-8 ####[facility] [id number] [place] [address] [place] Hemoglobin (Bld) [Mass/Vol] 9.0 g/dL Low 13.0-17.0 [facility] Comment on above: Order Comment: Speci men Type: BLOOD SPECIMENOrdering Facility: [facility] Address: [address] [place] [address] Performed By: #### 5 7021-8 ####[facility] MILL[facility]OWNCL[facility] [id number] [place] [address] [place] Immature granulocytes (Bld) [#/Vol] 10*3/uL Normal <0.10 [facility] Comment on above: Order Comment: Speci men Type: BLOOD SPECIMENOrdering Facility: [facility] Address: [address] [place] [address] Performed By: #### 5 7021-8 ####[facility]ENTERWNCLIA [id number] [place] [address] [place] Immature granulocytes/100 WBC (Bld) 0.4 % Normal [facility] Comment on above: Order Comment: Speci men Type: BLOOD SPECIMENOrdering Facility: [facility] Address: [address] [place] [address] Performed By: #### 5 7021-8 ####[facility]ENTERWNCLIA [id number] [place] [address] [place] Lymphocytes (Bld) [#/Vol] 1.12 10*3/uL Normal 1.00-4.00 [facility] Comment on above: Order Comment: Speci men Type: BLOOD SPECIMENOrdering Facility: [facility] Address: [address] [place] [address] Performed By: #### 5 7021-8 ####[facility] MILLTOWNCLIA [id number] [place] [address] [place] Lymphocytes/100 WBC (Bld) 21.4 % Normal [facility] Comment on above: Order Comment: Speci men Type: BLOOD SPECIMENOrdering Facility: [facility] Address: [address] [place] [address] Performed By: #### 5 7021-8 ####[facility] MILLTOWNCLIA [id number] [place] [address] [place] MCH (RBC) [Entitic mass] 37.5 pg High 26.0-34.0 [facility] Comment on above: Order Comment: Speci men Type: BLOOD SPECIMENOrdering Facility: [facility] Address: [address] [place] [address] Performed By: #### 5 7021-8 ####[facility] [id number] [place] [address] [place] MCHC (RBC) [Mass/Vol] 34.1 g/dL Normal 30.5-36.0 [facility] Comment on above: Order Comment: Speci men Type: BLOOD SPECIMENOrdering Facility: [facility] Address: [address] [place] [address] Performed By: #### 5 7021-8 ####[facility] [id number] [place] [address] [place] MCV (RBC) [Entitic vol] 110.0 fL High 80.0-100.0 [facility] Comment on above: Order Comment: Speci men Type: BLOOD SPECIMENOrdering Facility: [facility] Address: [address] [place] [address] Performed By: #### 5 7021-8 ####[facility] [id number] [place] [address] [place] Monocytes (Bld) [#/Vol] 0.70 10*3/uL Normal <0.87 [facility] Comment on above: Order Comment: Speci men Type: BLOOD SPECIMENOrdering Facility: [facility] Address: [address] [place] [address] Performed By: #### 5 7021-8 ####[facility] [id number] [place] [address] [place] Monocytes/100 WBC (Bld) 13.4 % Normal [facility] Comment on above: Order Comment: Speci men Type: BLOOD SPECIMENOrdering Facility: [facility] Address: [address] [place] [address] Performed By: #### 5 7021-8 ####[facility] [id number] [place] [address] [place] Neutrophils (Bld) [#/Vol] 3.24 10*3/uL Normal 1.45-7.50 [facility] Comment on above: Order Comment: Speci men Type: BLOOD SPECIMENOrdering Facility: [facility] Address: [address] [place] [address] Performed By: #### 5 7021-8 ####[facility] [id number] [place] [address] [place] Neutrophils/100 WBC (Bld) 61.9 % Normal [facility] Comment on above: Order Comment: Speci men Type: BLOOD SPECIMENOrdering Facility: [facility] Address: [address] [place] [address] Performed By: #### 5 7021-8 ####[facility] [id number] [place] [address] [place] Nucleated RBC (Bld) [#/Vol] 0.02 10*3/uL High <0.01 [facility] Comment on above: Order Comment: Speci men Type: BLOOD SPECIMENOrdering Facility: [facility] Address: [address] [place] [address] Performed By: #### 5 7021-8 ####[facility] [id number] [place] [address] [place] Nucleated RBC/100 WBC (Bld) [Ratio] 0.4 /100 WBC Normal [facility] Comment on above: Order Comment: Speci men Type: BLOOD SPECIMENOrdering Facility: [facility] Address: [address] [place] [address] Performed By: #### 5 7021-8 ####[facility] [id number] [place] [address] [place] Platelet mean volume (Bld) [Entitic vol] 11.4 fL Normal 9.0-12.7 [facility] Comment on above: Order Comment: Speci men Type: BLOOD SPECIMENOrdering Facility: [facility] Address: [address] [place] [address] Performed By: #### 5 7021-8 ####[facility] SYSTEMMALENA [id number] [place] [address] [place] Platelets (Bld) [#/Vol] 240 10*3/uL Normal 150-400 [facility] Comment on above: Order Comment: Speci men Type: BLOOD SPECIMENOrdering Facility: [facility] Address: [address] [place] [address] Performed By: #### 5 7021-8 ####[facility] SYSTEM[facility] [id number] [place] [address] [place] RBC (Bld) [#/Vol] 2.40 10*6/uL Low 4.20-6.00 [facility] Comment on above: Order Comment: Speci men Type: BLOOD SPECIMENOrdering Facility: [facility] Address: [address] [place] [address] Performed By: #### 5 7021-8 ####[facility] DAYTONLIA [id number] [place] [address] [place] WBC (Bld) [#/Vol] 5.23 10*3/uL Normal 3.70-11.00 [facility] Comment on above: Order Comment: Speci men Type: BLOOD SPECIMENOrdering Facility: [facility] Address: [address] [place] [address] Performed By: #### 5 7021-8 ####[facility] MILLTOWNCLIA [id number] [place] [address] [place] CNOVSPon 03-31-2025 CNOVSP Normal [facility] Comprehensive metabolic 2000 panelon 03-31-2025 Albumin [Mass/Vol] 4.1 g/dL Normal 3.9-4.9 [facility] Comment on above: Order Comment: Speci men Type: BLOOD SPECIMENOrdering Facility: [facility] Address: [address] [place] [address] Performed By: #### 2 4323-8 ####[facility] MILLTOWNCLIA [id number] [place] [address] [place] ALP [Catalytic activity/Vol] 64 U/L Normal 38-113 [facility] Comment on above: Order Comment: Speci men Type: BLOOD SPECIMENOrdering Facility: [facility] Address: [address] [place] [address] Performed By: #### 2 4323-8 ####[facility] MILLTOWNCLIA [id number] [place] [address] [place] ALT [Catalytic activity/Vol] 17 U/L Normal 10-54 [facility] Comment on above: Order Comment: Speci men Type: BLOOD SPECIMENOrdering Facility: [facility] Address: [address] [place] [address] Performed By: #### 2 4323-8 ####[facility] MILLTOWNCLIA [id number] [place] [address] [place] Anion gap [Moles/Vol] 11 mmol/L Normal 8-15 [facility] Comment on above: Order Comment: Speci men Type: BLOOD SPECIMENOrdering Facility: [facility] Address: [address] [place] [address] Performed By: #### 2 4323-8 ####[facility] MILLTOWNCLIA [id number] [place] [address] [place] AST [Catalytic activity/Vol] 23 U/L Normal 14-40 [facility] Comment on above: Order Comment: Speci men Type: BLOOD SPECIMENOrdering Facility: [facility] Address: [address] [place] [address] Performed By: #### 2 4323-8 ####[facility] MILLTOWNCLIA [id number] [place] [address] [place] Bilirubin [Mass/Vol] 1.8 mg/dL High 0.2-1.3 [facility] Comment on above: Order Comment: Speci men Type: BLOOD SPECIMENOrdering Facility: [facility] Address: [address] [place] [address] Performed By: #### 2 4323-8 ####[facility] CENTERWNCLIA [id number] [place] [address] [place] Calcium [Mass/Vol] 8.9 mg/dL Normal 8.5-10.2 [facility] Comment on above: Order Comment: Speci men Type: BLOOD SPECIMENOrdering Facility: [facility] Address: [address] [place] [address] Performed By: #### 2 4323-8 ####[facility] MILLWNCLIA [id number] [place] [address] [place] Chloride [Moles/Vol] 103 mmol/L Normal 98-107 [facility] Comment on above: Order Comment: Speci men Type: BLOOD SPECIMENOrdering Facility: [facility] Address: [address] [place] [address] Performed By: #### 2 4323-8 ####[facility] MILLTOWNCLIA [id number] [place] [address] [place] CO2 [Moles/Vol] 25 mmol/L Normal 22-30 [facility] Comment on above: Order Comment: Speci men Type: BLOOD SPECIMENOrdering Facility: [facility] Address: [address] [place] [address] Performed By: #### 2 4323-8 ####[facility] JONHEMMETNCRADHA [id number] [place] [address] [place] Creatinine [Mass/Vol] 0.99 mg/dL Normal 0.73-1.22 [facility] Comment on above: Order Comment: Speci men Type: BLOOD SPECIMENOrdering Facility: [facility] Address: [address] [place] [address] Performed By: #### 2 4323-8 ####[facility] SYSTEMNCLIManuel [id number] [place] [address] [place] Creatinine and Glomerular filtration rate.predicted panel (S/P/Bld) 73 mL/min/1.73m??? Normal >=60 [facility] Comment on above: Order Comment: Speci men Type: BLOOD SPECIMENOrdering Facility: [facility] Address: [address] [place] [address] Result Comment: Concepción mated Glomerular Filtration Rate [...] actual GFR. Performed By: #### 2 4323-8 ####[facility] SYSTEMNCLIA [id number] [place] [address] [place] Glucose [Mass/Vol] 163 mg/dL High 74-99 [facility] Comment on above: Order Comment: Speci men Type: BLOOD SPECIMENOrdering Facility: [facility] Address: [address] [place], [place] [address] Result Comment: The [place] Diabetes Association (ADA) provides guidance for cutoff [...] Standards of Medical Care in Diabetes 2016, [place] [employer]. Diabetes Care. 2016.39(Suppl 1). Performed By: #### 2 4323-8 ####[facility] MILLTOWNCLIA [id number] [place] [address] [place] Potassium [Moles/Vol] 4.3 mmol/L Normal 3.7-5.1 [facility] Comment on above: Order Comment: Speci men Type: BLOOD SPECIMENOrdering Facility: [facility] Address: [address] [place] [address] Performed By: #### 2 4323-8 ####[facility] MILLWNCLIA [id number] [place] [address] [place] Protein [Mass/Vol] 6.1 g/dL Low 6.3-8.0 [facility] Comment on above: Order Comment: Speci men Type: BLOOD SPECIMENOrdering Facility: [facility] Address: [address] [place] [address] Performed By: #### 2 4323-8 ####[facility] MILLTOWNCLIA [id number] [place] [address] [place] Sodium [Moles/Vol] 139 mmol/L Normal 136-144 [facility] Comment on above: Order Comment: Speci men Type: BLOOD SPECIMENOrdering Facility: [facility] Address: [address] [place] [address] Performed By: #### 2 4323-8 ####[facility] MILLTOWNCLIA [id number] [place] [address] [place] Urea nitrogen [Mass/Vol] 30 mg/dL High 9-24 [facility] Comment on above: Order Comment: Speci men Type: BLOOD SPECIMENOrdering Facility: [facility] Address: [address] [place] [address] Performed By: #### 2 4323-8 ####[facility] [id number] [place] [address] [place] EPO SerPl-aCncon 03-31-2025 Erythropoietin (EPO) Qn 78.7 mIU/mL High 2.6-18.5 [facility] Comment on above: Order Comment: Speci men Type: BLOOD SPECIMENOrdering Facility: [facility] Address: [address] [place] [address] Performed By: #### 1 5061-5 ####[facility] LABIA [id number] [place] [address] [place] Ferritin SerPl-mCncon 2024 Ferritin [Mass/Vol] 279.0 ng/mL Normal 30.3-565.7 [facility] Comment on above: Order Comment: Speci men Type: BLOOD SPECIMENOrdering Facility: [facility] Address: [address] [place] [address] Performed By: #### 2 276-4, 36481-8, 76844-8 ####[facility] HOSPITALIA [id number] [place] [address] [place] Folate SerPl-mCncon 03-31-20 25 Folate [Mass/Vol] ng/mL Normal >4.7 [facility] Comment on above: Order Comment: Speci men Type: BLOOD SPECIMENOrdering Facility: [facility] Address: [address] [place] [address] Result Comment: A re sult of > 20 ng/mL is not necessarily indicative of a pathologic or treatable condition: it reflects a limitation of the test methodology.Assay reference range: 4.8 to 24.2 ng/mL. Suitable for detection of folate deficiency.Reference:Folate III (Folate III) [package insert V 1.0 Serbian]. [facility], [place], [place]: September 2015. Performed By: #### 2 284-8, 2132-9 ####[facility] LABIA [id number] [place] [id number] [place] Iron and Iron binding capaci ty panelon 03-31-2025 Iron [Mass/Vol] 179 ug/dL Normal 41-186 [facility] Comment on above: Order Comment: Speci men Type: BLOOD SPECIMENOrdering Facility: [facility] Address: [address] [place] [address] Performed By: #### 2 276-4, 53791-1, 65835-4 ####[facility] LABIA [id number] [place] [address] [place] Iron binding capacity [Mass/Vol] 198 ug/dL Low 232-386 [facility] Comment on above: Order Comment: Speci men Type: BLOOD SPECIMENOrdering Facility: [facility] Address: [address] [place] [address] Performed By: #### 2 276-4, 50890-6, 63739-5 ####[facility] HOSPITALIA [id number] [place] [address] [place] Iron/TIBC [Molar ratio] 90.4 % High 15.0-57.0 [facility] Comment on above: Order Comment: Speci men Type: BLOOD SPECIMENOrdering Facility: [facility] Address: [address] [place] [address] Performed By: #### 2 276-4, 82817-7, 91675-7 ####[facility] LABIA [id number] [place] [address] [place] Methylmalonate SerPl-sCncon 03-31-2025 Methylmalonate [Moles/Vol] 0.23 umol/L Normal <=0.40 [facility] Comment on above: Order Comment: Speci men Type: BLOOD SPECIMENOrdering Facility: [facility] Address: [address] [place] [address] Result Comment: This test was developed, and its performance characteristics determined by the [facility] Department of Pathology and Laboratory Medicine. It has not been cleared or approved by the FDA. The [facility] Department of Pathology and Laboratory Medicine is regulated under CLIA as qualified to perform high-complexity testing. This test is used for clinical purposes. It should not be regarded as investigational or for research. Performed By: #### 1 3964-2 ####[facility] [id number] [place] [address] [place] NT-proBNP [facility] 03-31 Natriuretic peptide.B prohormone N-Terminal [Mass/Vol] 4857 pg/mL High <450 [facility] Comment on above: Order Comment: Speci men Type: BLOOD SPECIMENOrdering Facility: [facility] Address: [address] [place] [address] Performed By: #### 2 276-4, 42942-1, 45964-4 ####[facility] [id number] [place] [address] [place] Vit B12 [facility] 025 Cobalamin (Vitamin B12) [Mass/Vol] 685 pg/mL Normal 232-1245 [facility] Comment on above: Order Comment: [facility] Type: BLOOD SPECIMENOrdering Facility: [facility] Address: [address] [place] [address] Performed By: #### 2 284-8, 2132-9 ####[facility] HOSPITALIA [id number] [place] [address] [place] US DVT LOWER BILon US DVT LOWER RALF Normal [facility] CNOVon 03-27-2025 CNOV Normal [facility] CBC W Auto Differential pane l (Bld)on 03-17-2025 Basophils (Bld) [#/Vol] 0.07 10*3/uL Normal <0.11 [facility] Comment on above: Order Comment: Speci men Type: BLOOD SPECIMENOrdering Facility: [facility] Address: [address] [place] [address] Performed By: #### 5 7021-8 ####[facility] CENTERWROBERTLIA [id number] [place] [address] [place] Basophils/100 WBC (Bld) 1.3 % Normal [facility] Comment on above: Order Comment: Speci men Type: BLOOD SPECIMENOrdering Facility: [facility] Address: [address] [place] [address] Performed By: #### 5 7021-8 ####[facility] [id number] [place] [address] [place] Differential cell count method Nom (Bld) Auto Normal [facility] Comment on above: Order Comment: Speci men Type: BLOOD SPECIMENOrdering Facility: [facility] Address: [address] [place] [address] Performed By: #### 5 7021-8 ####[facility] DAYTONLIA [id number] [place] [address] [place] Eosinophils (Bld) [#/Vol] 0.10 10*3/uL Normal <0.46 [facility] Comment on above: Order Comment: Speci men Type: BLOOD SPECIMENOrdering Facility: [facility] Address: [address] [place] [address] Performed By: #### 5 7021-8 ####[facility] [id number] [place] [address] [place] Eosinophils/100 WBC (Bld) 1.8 % Normal [facility] Comment on above: Order Comment: Speci men Type: BLOOD SPECIMENOrdering Facility: [facility] Address: [address] [place] [address] Performed By: #### 5 7021-8 ####[facility] JONHEMMETMALENA [id number] [place] [address] [place] Erythrocyte distribution width (RBC) [Ratio] 22.2 % High 11.5-15.0 [facility] Comment on above: Order Comment: Speci men Type: BLOOD SPECIMENOrdering Facility: [facility] Address: [address] [place] [address] Performed By: #### 5 7021-8 ####[facility] [id number] [place] [address] [place] Hematocrit (Bld) [Volume fraction] 27.5 % Low 39.0-51.0 [facility] Comment on above: Order Comment: Speci men Type: BLOOD SPECIMENOrdering Facility: [facility] Address: [address] [place] [address] Performed By: #### 5 7021-8 ####[facility] DAYTONLIA [id number] [place] [address] [place] Hemoglobin (Bld) [Mass/Vol] 9.3 g/dL Low 13.0-17.0 [facility] Comment on above: Order Comment: Speci men Type: BLOOD SPECIMENOrdering Facility: [facility] Address: [address] [place] [address] Performed By: #### 5 7021-8 ####[facility] SYSTEMNCLIA [id number] [place] [address] [place] Immature granulocytes (Bld) [#/Vol] 0.03 10*3/uL Normal <0.10 [facility] Comment on above: Order Comment: Speci men Type: BLOOD SPECIMENOrdering Facility: [facility] Address: [address] [place] [address] Performed By: #### 5 7021-8 ####[facility] JONHEMMETROBERTLIA [id number] [place] [address] [place] Immature granulocytes/100 WBC (Bld) 0.6 % Normal [facility] Comment on above: Order Comment: Speci men Type: BLOOD SPECIMENOrdering Facility: [facility] Address: [address] [place] [address] Performed By: #### 5 7021-8 ####[facility] [id number] [place] [address] [place] Lymphocytes (Bld) [#/Vol] 1.31 10*3/uL Normal 1.00-4.00 [facility] Comment on above: Order Comment: Speci men Type: BLOOD SPECIMENOrdering Facility: [facility] Address: [address] [place] [address] Performed By: #### 5 7021-8 ####[facility] [id number] [place] [address] [place] Lymphocytes/100 WBC (Bld) 24.0 % Normal [facility] Comment on above: Order Comment: Speci men Type: BLOOD SPECIMENOrdering Facility: [facility] Address: [address] [place] [address] Performed By: #### 5 7021-8 ####[facility] [id number] [place] [address] [place] MCH (RBC) [Entitic mass] 37.5 pg High 26.0-34.0 [facility] Comment on above: Order Comment: Speci men Type: BLOOD SPECIMENOrdering Facility: [facility] Address: [address] [place] [address] Performed By: #### 5 7021-8 ####[facility] SYSTEM[facility]CLIA [id number] [place] [address] [place] MCHC (RBC) [Mass/Vol] 33.8 g/dL Normal 30.5-36.0 [facility] Comment on above: Order Comment: Speci men Type: BLOOD SPECIMENOrdering Facility: [facility] Address: [address] [place] [address] Performed By: #### 5 7021-8 ####[facility] [id number] [place] [address] [place] MCV (RBC) [Entitic vol] 110.9 fL High 80.0-100.0 [facility] Comment on above: Order Comment: Speci men Type: BLOOD SPECIMENOrdering Facility: [facility] Address: [address] [place] [address] Performed By: #### 5 7021-8 ####[facility] [id number] [place] [address] [place] Monocytes (Bld) [#/Vol] 0.71 10*3/uL Normal <0.87 [facility] Comment on above: Order Comment: Speci men Type: BLOOD SPECIMENOrdering Facility: [facility] Address: [address] [place] [address] Performed By: #### 5 7021-8 ####[facility] [id number] [place] [address] [place] Monocytes/100 WBC (Bld) 13.0 % Normal [facility] Comment on above: Order Comment: Speci men Type: BLOOD SPECIMENOrdering Facility: [facility] Address: [address] [place], [place] [address] Performed By: #### 5 7021-8 ####[facility] [id number] [place] [address] [place] Neutrophils (Bld) [#/Vol] 3.23 10*3/uL Normal 1.45-7.50 [facility] Comment on above: Order Comment: Speci men Type: BLOOD SPECIMENOrdering Facility: [facility] Address: [address] [place] [address] Performed By: #### 5 7021-8 ####[facility]MMETM[facility] [id number] [place] [address] [place] Neutrophils/100 WBC (Bld) 59.3 % Normal [facility] Comment on above: Order Comment: Speci men Type: BLOOD SPECIMENOrdering Facility: [facility] Address: [address] [place] [address] Performed By: #### 5 7021-8 ####[facility] [id number] [place] [address] [place] Nucleated RBC (Bld) [#/Vol] 0.04 10*3/uL High <0.01 [facility] Comment on above: Order Comment: Speci men Type: BLOOD SPECIMENOrdering Facility: [facility] Address: [address] [place] [address] Performed By: #### 5 7021-8 ####[facility] [id number] [place] [address] [place] Nucleated RBC/100 WBC (Bld) [Ratio] 0.7 /100 WBC Normal [facility] Comment on above: Order Comment: Speci men Type: BLOOD SPECIMENOrdering Facility: [facility] Address: [address] [place] [address] Performed By: #### 5 7021-8 ####[facility] [id number] [place] [address] [place] Platelet mean volume (Bld) [Entitic vol] 11.6 fL Normal 9.0-12.7 [facility] Comment on above: Order Comment: Speci men Type: BLOOD SPECIMENOrdering Facility: [facility] Address: [address] [place] [address] Performed By: #### 5 7021-8 ####[facility] SYSTEMNCLIA [id number] [place] [address] [place] Platelets (Bld) [#/Vol] 300 10*3/uL Normal 150-400 [facility] Comment on above: Order Comment: Speci men Type: BLOOD SPECIMENOrdering Facility: [facility] Address: [address] [place] [address] Performed By: #### 5 7021-8 ####[facility] SYSTEMM[facility] [id number] [place] [address] [place] RBC (Bld) [#/Vol] 2.48 10*6/uL Low 4.20-6.00 [facility] Comment on above: Order Comment: Speci men Type: BLOOD SPECIMENOrdering Facility: [facility] Address: [address] [place] [address] Performed By: #### 5 7021-8 ####[facility] [id number] [place] [address] [place] WBC (Bld) [#/Vol] 5.45 10*3/uL Normal 3.70-11.00 [facility] Comment on above: Order Comment: Speci men Type: BLOOD SPECIMENOrdering Facility: [facility] Address: [address] [place] [address] Performed By: #### 5 7021-8 ####[facility] [id number] [place] [address] [place] CNPNon 03-17-2025 CNPN Normal [facility] CBC W Auto Differential pane l (Bld)on 03-03-2025 Basophils (Bld) [#/Vol] 0.05 10*3/uL Normal <0.11 [facility] Comment on above: Order Comment: Speci men Type: BLOOD SPECIMENOrdering Facility: [facility] Address: [address] [place] [address] Performed By: #### 5 7021-8 ####[facility] JONHWROBERTLIA [id number] [place] [address] [place] Basophils/100 WBC (Bld) 0.8 % Normal [facility] Comment on above: Order Comment: Speci men Type: BLOOD SPECIMENOrdering Facility: [facility] Address: [address] [place] [address] Performed By: #### 5 7021-8 ####[facility] JONHEMMETROBERTLIA [id number] [place] [address] [place] Differential cell count method Nom (Bld) Auto Normal [facility] Comment on above: Order Comment: Speci men Type: BLOOD SPECIMENOrdering Facility: [facility] Address: [address] [place] [address] Performed By: #### 5 7021-8 ####[facility] SYSTEMROBERTCONSTANCEA [id number] [place] [address] [place] Eosinophils (Bld) [#/Vol] 0.11 10*3/uL Normal <0.46 [facility] Comment on above: Order Comment: Speci men Type: BLOOD SPECIMENOrdering Facility: [facility] Address: [address] [place] [address] Performed By: #### 5 7021-8 ####[facility] SYSTEMKOSTAA [id number] [place] [address] [place] Eosinophils/100 WBC (Bld) 1.8 % Normal [facility] Comment on above: Order Comment: Speci men Type: BLOOD SPECIMENOrdering Facility: [facility] Address: [address] [place] [address] Performed By: #### 5 7021-8 ####[facility] SYSTEMNCLIA [id number] [place] [address] [place] Erythrocyte distribution width (RBC) [Ratio] 22.6 % High 11.5-15.0 [facility] Comment on above: Order Comment: Speci men Type: BLOOD SPECIMENOrdering Facility: [facility] Address: [address] [place] [address] Performed By: #### 5 7021-8 ####[facility] [id number] [place] [address] [place] Hematocrit (Bld) [Volume fraction] 25.6 % Low 39.0-51.0 [facility] Comment on above: Order Comment: Speci men Type: BLOOD SPECIMENOrdering Facility: [facility] Address: [address] [place] [address] Performed By: #### 5 7021-8 ####[facility] [id number] [place] [address] [place] Hemoglobin (Bld) [Mass/Vol] 8.7 g/dL Low 13.0-17.0 [facility] Comment on above: Order Comment: Speci men Type: BLOOD SPECIMENOrdering Facility: [facility] Address: [address] [place] [address] Performed By: #### 5 7021-8 ####[facility] [id number] [place] [address] [place] Immature granulocytes (Bld) [#/Vol] 0.03 10*3/uL Normal <0.10 [facility] Comment on above: Order Comment: Speci men Type: BLOOD SPECIMENOrdering Facility: [facility] Address: [address] [place] [address] Performed By: #### 5 7021-8 ####[facility] [id number] [place] [address] [place] Immature granulocytes/100 WBC (Bld) 0.5 % Normal [facility] Comment on above: Order Comment: Speci men Type: BLOOD SPECIMENOrdering Facility: [facility] Address: [address] [place] [address] Performed By: #### 5 7021-8 ####[facility] MILLTOWNCLIA [id number] [place] [address] [place] Lymphocytes (Bld) [#/Vol] 1.02 10*3/uL Normal 1.00-4.00 [facility] Comment on above: Order Comment: Speci men Type: BLOOD SPECIMENOrdering Facility: [facility] Address: [address] [place] [address] Performed By: #### 5 7021-8 ####[facility]ENTERWNCLIA [id number] [place] [address] [place] Lymphocytes/100 WBC (Bld) 16.3 % Normal [facility] Comment on above: Order Comment: Speci men Type: BLOOD SPECIMENOrdering Facility: [facility] Address: [address] [place] [address] Performed By: #### 5 7021-8 ####[facility] SYSTEMNCLIA [id number] [place] [address] [place] MCH (RBC) [Entitic mass] 37.5 pg High 26.0-34.0 [facility] Comment on above: Order Comment: Speci men Type: BLOOD SPECIMENOrdering Facility: [facility] Address: [address] [place] [address] Performed By: #### 5 7021-8 ####[facility] MILLTOWNCLIA [id number] [place] [address] [place] MCHC (RBC) [Mass/Vol] 34.0 g/dL Normal 30.5-36.0 [facility] Comment on above: Order Comment: Speci men Type: BLOOD SPECIMENOrdering Facility: [facility] Address: [address] [place] [address] Performed By: #### 5 7021-8 ####[facility] [id number] [place] [address] [place] MCV (RBC) [Entitic vol] 110.3 fL High 80.0-100.0 [facility] Comment on above: Order Comment: Speci men Type: BLOOD SPECIMENOrdering Facility: [facility] Address: [address] [place] [address] Performed By: #### 5 7021-8 ####[facility] [id number] [place] [address] [place] Monocytes (Bld) [#/Vol] 0.93 10*3/uL High <0.87 [facility] Comment on above: Order Comment: Speci men Type: BLOOD SPECIMENOrdering Facility: [facility] Address: [address] [place] [address] Performed By: #### 5 7021-8 ####[facility] [id number] [place] [address] [place] Monocytes/100 WBC (Bld) 14.9 % Normal [facility] Comment on above: Order Comment: Speci men Type: BLOOD SPECIMENOrdering Facility: [facility] Address: [address] [place] [address] Performed By: #### 5 7021-8 ####[facility] [id number] [place] [address] [place] Neutrophils (Bld) [#/Vol] 4.10 10*3/uL Normal 1.45-7.50 [facility] Comment on above: Order Comment: Speci men Type: BLOOD SPECIMENOrdering Facility: [facility] Address: [address] [place] [address] Performed By: #### 5 7021-8 ####[facility] [id number] [place] [address] [place] Neutrophils/100 WBC (Bld) 65.7 % Normal [facility] Comment on above: Order Comment: Speci men Type: BLOOD SPECIMENOrdering Facility: [facility] Address: [address] [place] [address] Performed By: #### 5 7021-8 ####[facility] [id number] [place] [address] [place] Nucleated RBC (Bld) [#/Vol] 10*3/uL Normal <0.01 [facility] Comment on above: Order Comment: Speci men Type: BLOOD SPECIMENOrdering Facility: [facility] Address: [address] [place] [address] Performed By: #### 5 7021-8 ####[facility] [id number] [place] [address] [place] Nucleated RBC/100 WBC (Bld) [Ratio] 0.0 /100 WBC Normal [facility] Comment on above: Order Comment: Speci men Type: BLOOD SPECIMENOrdering Facility: [facility] Address: [address] [place] [address] Performed By: #### 5 7021-8 ####[facility] [id number] [place] [address] [place] Platelet mean volume (Bld) [Entitic vol] 11.6 fL Normal 9.0-12.7 [facility] Comment on above: Order Comment: Speci men Type: BLOOD SPECIMENOrdering Facility: [facility] Address: [address] [place] [address] Performed By: #### 5 7021-8 ####[facility] [id number] [place] [address] [place] Platelets (Bld) [#/Vol] 227 10*3/uL Normal 150-400 [facility] Comment on above: Order Comment: Speci men Type: BLOOD SPECIMENOrdering Facility: [facility] Address: [address] [place] [address] Performed By: #### 5 7021-8 ####[facility] SYSTEMMAL[facility] [id number] [place] [address] [place] RBC (Bld) [#/Vol] 2.32 10*6/uL Low 4.20-6.00 [facility] Comment on above: Order Comment: Speci men Type: BLOOD SPECIMENOrdering Facility: [facility] Address: [address] [place] [address] Performed By: #### 5 7021-8 ####[facility] SYSTEMMAL[facility] [id number] [place] [address] [place] WBC (Bld) [#/Vol] 6.24 10*3/uL Normal 3.70-11.00 [facility] Comment on above: Order Comment: Speci men Type: BLOOD SPECIMENOrdering Facility: [facility] Address: [address] [place] [address] Performed By: #### 5 7021-8 ####[facility] SYSTEMROBERTLIA [id number] [place] [address] [place] CBC W Auto Differential pane l (Bld)on 02-17-2025 Basophils (Bld) [#/Vol] 0.04 10*3/uL Normal <0.11 [facility] Comment on above: Order Comment: Speci men Type: BLOOD SPECIMENOrdering Facility: [facility] Address: [address] [place] [address] Performed By: #### 5 7021-8 ####[facility] SYSTEMKOSTAA [id number] [place] [address] [place] Basophils/100 WBC (Bld) 0.8 % Normal [facility] Comment on above: Order Comment: Speci men Type: BLOOD SPECIMENOrdering Facility: [facility] Address: [address] [place] [address] Performed By: #### 5 7021-8 ####[facility] MILLEMMETNCLIA [id number] [place] [address] [place] Differential cell count method Nom (Bld) Auto Normal [facility] Comment on above: Order Comment: Speci men Type: BLOOD SPECIMENOrdering Facility: [facility] Address: [address] [place] [address] Performed By: #### 5 7021-8 ####[facility]TONLIA [id number] [place] [address] [place] Eosinophils (Bld) [#/Vol] 0.12 10*3/uL Normal <0.46 [facility] Comment on above: Order Comment: Speci men Type: BLOOD SPECIMENOrdering Facility: [facility] Address: [address] [place] [address] Performed By: #### 5 7021-8 ####[facility] [id number] [place] [address] [place] Eosinophils/100 WBC (Bld) 2.3 % Normal [facility] Comment on above: Order Comment: Speci men Type: BLOOD SPECIMENOrdering Facility: [facility] Address: [address] [place] [address] Performed By: #### 5 7021-8 ####[facility] [id number] [place] [address] [place] Erythrocyte distribution width (RBC) [Ratio] 22.2 % High 11.5-15.0 [facility] Comment on above: Order Comment: Speci men Type: BLOOD SPECIMENOrdering Facility: [facility] Address: [address] [place] [address] Performed By: #### 5 7021-8 ####[facility] SYSTEMNCLIA [id number] [place] [address] [place] Hematocrit (Bld) [Volume fraction] 27.2 % Low 39.0-51.0 [facility] Comment on above: Order Comment: Speci men Type: BLOOD SPECIMENOrdering Facility: [facility] Address: [address] [place] [address] Performed By: #### 5 7021-8 ####[facility] [id number] [place] [address] [place] Hemoglobin (Bld) [Mass/Vol] 9.0 g/dL Low 13.0-17.0 [facility] Comment on above: Order Comment: Speci men Type: BLOOD SPECIMENOrdering Facility: [facility] Address: [address] [place] [address] Performed By: #### 5 7021-8 ####[facility] [id number] [place] [address] [place] Immature granulocytes (Bld) [#/Vol] 10*3/uL Normal <0.10 [facility] Comment on above: Order Comment: Speci men Type: BLOOD SPECIMENOrdering Facility: [facility] Address: [address] [place] [address] Performed By: #### 5 7021-8 ####[facility] [id number] [place] [address] [place] Immature granulocytes/100 WBC (Bld) 0.2 % Normal [facility] Comment on above: Order Comment: Speci men Type: BLOOD SPECIMENOrdering Facility: [facility] Address: [address] [place] [address] Performed By: #### 5 7021-8 ####[facility] [id number] [place] [address] [place] Lymphocytes (Bld) [#/Vol] 0.89 10*3/uL Low 1.00-4.00 [facility] Comment on above: Order Comment: Speci men Type: BLOOD SPECIMENOrdering Facility: [facility] Address: [address] [place] [address] Performed By: #### 5 7021-8 ####[facility] SYSTEMMALENA [id number] [place] [address] [place] Lymphocytes/100 WBC (Bld) 17.1 % Normal [facility] Comment on above: Order Comment: Speci men Type: BLOOD SPECIMENOrdering Facility: [facility] Address: [address] [place] [address] Performed By: #### 5 7021-8 ####[facility] [id number] [place] [address] [place] MCH (RBC) [Entitic mass] 36.6 pg High 26.0-34.0 [facility] Comment on above: Order Comment: Speci men Type: BLOOD SPECIMENOrdering Facility: [facility] Address: [address] [place] [address] Performed By: #### 5 7021-8 ####[facility] SYSTEMNCA [id number] [place] [address] [place] MCHC (RBC) [Mass/Vol] 33.1 g/dL Normal 30.5-36.0 [facility] Comment on above: Order Comment: Speci men Type: BLOOD SPECIMENOrdering Facility: [facility] Address: [address] [place] [address] Performed By: #### 5 7021-8 ####[facility] SYSTEMNCLIA [id number] [place] [address] [place] MCV (RBC) [Entitic vol] 110.6 fL High 80.0-100.0 [facility] Comment on above: Order Comment: Speci men Type: BLOOD SPECIMENOrdering Facility: [facility] Address: [address] [place] [address] Performed By: #### 5 7021-8 ####[facility] MILLTOWNCLIA [id number] [place] [address] [place] Monocytes (Bld) [#/Vol] 0.76 10*3/uL Normal <0.87 [facility] Comment on above: Order Comment: Speci men Type: BLOOD SPECIMENOrdering Facility: [facility] Address: [address] [place] [address] Performed By: #### 5 7021-8 ####[facility] CENTERWMALIA [id number] [place] [address] [place] Monocytes/100 WBC (Bld) 14.6 % Normal [facility] Comment on above: Order Comment: Speci men Type: BLOOD SPECIMENOrdering Facility: [facility] Address: [address] [place] [address] Performed By: #### 5 7021-8 ####[facility] DAYTONLIA [id number] [place] [address] [place] Neutrophils (Bld) [#/Vol] 3.39 10*3/uL Normal 1.45-7.50 [facility] Comment on above: Order Comment: Speci men Type: BLOOD SPECIMENOrdering Facility: [facility] Address: [address] [place] [address] Performed By: #### 5 7021-8 ####[facility] DAYTONLIA [id number] [place] [address] [place] Neutrophils/100 WBC (Bld) 65.0 % Normal [facility] Comment on above: Order Comment: Speci men Type: BLOOD SPECIMENOrdering Facility: [facility] Address: [address] [place] [address] Performed By: #### 5 7021-8 ####[facility] SYSTEMNCLIA [id number] [place] [address] [place] Nucleated RBC (Bld) [#/Vol] 0.02 10*3/uL High <0.01 [facility] Comment on above: Order Comment: Speci men Type: BLOOD SPECIMENOrdering Facility: [facility] Address: [address] [place] [address] Performed By: #### 5 7021-8 ####[facility] [id number] [place] [address] [place] Nucleated RBC/100 WBC (Bld) [Ratio] 0.4 /100 WBC Normal [facility] Comment on above: Order Comment: Speci men Type: BLOOD SPECIMENOrdering Facility: [facility] Address: [address] [place] [address] Performed By: #### 5 7021-8 ####[facility] [id number] [place] [address] [place] Platelet mean volume (Bld) [Entitic vol] 10.9 fL Normal 9.0-12.7 [facility] Comment on above: Order Comment: Speci men Type: BLOOD SPECIMENOrdering Facility: [facility] Address: [address] [place] [address] Performed By: #### 5 7021-8 ####[facility] [id number] [place] [address] [place] Platelets (Bld) [#/Vol] 226 10*3/uL Normal 150-400 [facility] Comment on above: Order Comment: Speci men Type: BLOOD SPECIMENOrdering Facility: [facility] Address: [address] [place] [address] Performed By: #### 5 7021-8 ####[facility] [id number] [place] [address] [place] RBC (Bld) [#/Vol] 2.46 10*6/uL Low 4.20-6.00 [facility] Comment on above: Order Comment: Speci men Type: BLOOD SPECIMENOrdering Facility: [facility] Address: [address] [place] [address] Performed By: #### 5 7021-8 ####[facility] SYSTEMROBERTManuel [id number] [place] [address] [place] WBC (Bld) [#/Vol] 5.21 10*3/uL Normal 3.70-11.00 [facility] Comment on above: Order Comment: Speci men Type: BLOOD SPECIMENOrdering Facility: [facility] Address: [address] [place] [address] Performed By: #### 5 7021-8 ####[facility] SYSTEMROBERTManuel [id number] [place] [address] [place] CBC W Auto Differential pane l (Bld)on 02-03-2025 Basophils (Bld) [#/Vol] 0.04 10*3/uL Normal <0.11 [facility] Comment on above: Order Comment: Speci men Type: BLOOD SPECIMENOrdering Facility: [facility] Address: [address] [place] [address] Performed By: #### 5 7021-8 ####[facility] [id number] [place] [address] [place] Basophils/100 WBC (Bld) 0.8 % Normal [facility] Comment on above: Order Comment: Speci men Type: BLOOD SPECIMENOrdering Facility: [facility] Address: [address] [place] [address] Performed By: #### 5 7021-8 ####[facility] [id number] [address] [place] Differential cell count method Nom (Bld) Auto Normal [facility] Comment on above: Order Comment: Speci men Type: BLOOD SPECIMENOrdering Facility: [facility] Address: [address] [place] [address] Performed By: #### 5 7021-8 ####[facility] CENTERWMALIA [id number] [place] [address] [place] Eosinophils (Bld) [#/Vol] 0.11 10*3/uL Normal <0.46 [facility] Comment on above: Order Comment: Speci men Type: BLOOD SPECIMENOrdering Facility: [facility] Address: [address] [place] [address] Performed By: #### 5 7021-8 ####[facility] [id number] [place] [address] [place] Eosinophils/100 WBC (Bld) 2.1 % Normal [facility] Comment on above: Order Comment: Speci men Type: BLOOD SPECIMENOrdering Facility: [facility] Address: [address] [place] [address] Performed By: #### 5 7021-8 ####[facility] [id number] [place] [address] [place] Erythrocyte distribution width (RBC) [Ratio] 23.0 % High 11.5-15.0 [facility] Comment on above: Order Comment: Speci men Type: BLOOD SPECIMENOrdering Facility: [facility] Address: [address] [place] [address] Performed By: #### 5 7021-8 ####[facility] DAYTONLIA [id number] [place] [address] [place] Hematocrit (Bld) [Volume fraction] 27.7 % Low 39.0-51.0 [facility] Comment on above: Order Comment: Speci men Type: BLOOD SPECIMENOrdering Facility: [facility] Address: [address] [place] [address] Performed By: #### 5 7021-8 ####[facility]TONLI [id number] [place] [address] [place] Hemoglobin (Bld) [Mass/Vol] 9.1 g/dL Low 13.0-17.0 [facility] Comment on above: Order Comment: Speci men Type: BLOOD SPECIMENOrdering Facility: [facility] Address: [address] [place] [address] Performed By: #### 5 7021-8 ####[facility] CENTERWMALIA [id number] [place] [address] [place] Immature granulocytes (Bld) [#/Vol] 10*3/uL Normal <0.10 [facility] Comment on above: Order Comment: Speci men Type: BLOOD SPECIMENOrdering Facility: [facility] Address: [address] [place] [address] Performed By: #### 5 7021-8 ####[facility] [id number] [place] [address] [place] Immature granulocytes/100 WBC (Bld) 0.2 % Normal [facility] Comment on above: Order Comment: Speci men Type: BLOOD SPECIMENOrdering Facility: [facility] Address: [address] [place] [address] Performed By: #### 5 7021-8 ####[facility] DAYTONLIA [id number] [place] [address] [place] Lymphocytes (Bld) [#/Vol] 1.16 10*3/uL Normal 1.00-4.00 [facility] Comment on above: Order Comment: Speci men Type: BLOOD SPECIMENOrdering Facility: [facility] Address: [address] [place] [address] Performed By: #### 5 7021-8 ####[facility] SYSTEMNCLIA [id number] [place] [address] [place] Lymphocytes/100 WBC (Bld) 22.2 % Normal [facility] Comment on above: Order Comment: Speci men Type: BLOOD SPECIMENOrdering Facility: [facility] Address: [address] [place], [place] [address] Performed By: #### 5 7021-8 ####[facility] JONHWilliamsNCRADHA [id number] [place] [address] [place] MCH (RBC) [Entitic mass] 36.1 pg High 26.0-34.0 [facility] Comment on above: Order Comment: Speci men Type: BLOOD SPECIMENOrdering Facility: [facility] Address: [address] [place] [address] Performed By: #### 5 7021-8 ####[facility]ALTHC[facility] SYSTEMNCRADHA [id number] [place] [address] [place] MCHC (RBC) [Mass/Vol] 32.9 g/dL Normal 30.5-36.0 [facility] Comment on above: Order Comment: Speci men Type: BLOOD SPECIMENOrdering Facility: [facility] Address: [address] [place] [address] Performed By: #### 5 7021-8 ####[facility]CARE SYSTEMNCA [id number] [place] [address] [place] MCV (RBC) [Entitic vol] 109.9 fL High 80.0-100.0 [facility] Comment on above: Order Comment: Speci men Type: BLOOD SPECIMENOrdering Facility: [facility] Address: [address] [place], [place] [address] Performed By: #### 5 7021-8 ####[facility] [id number] [place] [address] [place] Monocytes (Bld) [#/Vol] 0.71 10*3/uL Normal <0.87 [facility] Comment on above: Order Comment: Speci men Type: BLOOD SPECIMENOrdering Facility: [facility] Address: [address] [place], [place] [address] Performed By: #### 5 7021-8 ####[facility] MILLWNCLIA [id number] [place] [address] [place] Monocytes/100 WBC (Bld) 13.6 % Normal [facility] Comment on above: Order Comment: Speci men Type: BLOOD SPECIMENOrdering Facility: [facility] Address: [address] [place] [address] Performed By: #### 5 7021-8 ####[facility] SYSTEMNCLIA [id number] [place] [address] [place] Neutrophils (Bld) [#/Vol] 3.19 10*3/uL Normal 1.45-7.50 [facility] Comment on above: Order Comment: Speci men Type: BLOOD SPECIMENOrdering Facility: [facility] Address: [address] [place] [address] Performed By: #### 5 7021-8 ####[facility] DAYTONLIA [id number] [place] [address] [place] Neutrophils/100 WBC (Bld) 61.1 % Normal [facility] Comment on above: Order Comment: Speci men Type: BLOOD SPECIMENOrdering Facility: [facility] Address: [address] [place] [address] Performed By: #### 5 7021-8 ####[facility] DAYTONLIA [id number] [place] [address] [place] Nucleated RBC (Bld) [#/Vol] 0.03 10*3/uL High <0.01 [facility] Comment on above: Order Comment: Speci men Type: BLOOD SPECIMENOrdering Facility: [facility] Address: [address] [place] [address] Performed By: #### 5 7021-8 ####[facility] SYSTEMNCLIA [id number] [place] [address] [place] Nucleated RBC/100 WBC (Bld) [Ratio] 0.6 /100 WBC Normal [facility] Comment on above: Order Comment: Speci men Type: BLOOD SPECIMENOrdering Facility: [facility] Address: [address] [place] [address] Performed By: #### 5 7021-8 ####[facility] SYSTEMROBERTRADHA [id number] [place] [address] [place] Platelet mean volume (Bld) [Entitic vol] 10.4 fL Normal 9.0-12.7 [facility] Comment on above: Order Comment: Speci men Type: BLOOD SPECIMENOrdering Facility: [facility] Address: [address] [place] [address] Performed By: #### 5 7021-8 ####[facility] SYSTEMROBERTUTAH STATE [facility] [id number] [place] [address] [place] Platelets (Bld) [#/Vol] 252 10*3/uL Normal 150-400 [facility] Comment on above: Order Comment: Speci men Type: BLOOD SPECIMENOrdering Facility: [facility] Address: [address] [place] [address] Performed By: #### 5 7021-8 ####[facility] GARDENManuel [id number] [place] [address] [place] RBC (Bld) [#/Vol] 2.52 10*6/uL Low 4.20-6.00 [facility] Comment on above: Order Comment: Speci men Type: BLOOD SPECIMENOrdering Facility: [facility] Address: [address] [place] [address] Performed By: #### 5 7021-8 ####[facility] SYSTEMNCLIA [id number] [place] [address] [place] WBC (Bld) [#/Vol] 5.22 10*3/uL Normal 3.70-11.00 [facility] Comment on above: Order Comment: Speci men Type: BLOOD SPECIMENOrdering Facility: [facility] Address: [address] [place] [address] Performed By: #### 5 7021-8 ####[facility] [id number] [place] [address] [place] CNOVon 01-31-2025 CNOV Normal [facility] CBC W Auto Differential pane l (Bld)on 01-20-2025 Basophils (Bld) [#/Vol] 0.05 10*3/uL Normal <0.11 [facility] Comment on above: Order Comment: Speci men Type: BLOOD SPECIMENOrdering Facility: [facility] Address: [address] [place] [address] Performed By: #### 5 7021-8 ####[facility] [id number] [place] [address] [place] Basophils/100 WBC (Bld) 0.9 % Normal [facility] Comment on above: Order Comment: Speci men Type: BLOOD SPECIMENOrdering Facility: [facility] Address: [address] [place] [address] Performed By: #### 5 7021-8 ####[facility] [id number] [place] [address] [place] Differential cell count method Nom (Bld) Auto Normal [facility] Comment on above: Order Comment: Speci men Type: BLOOD SPECIMENOrdering Facility: [facility] Address: [address] [place] [address] Performed By: #### 5 7021-8 ####[facility] SYSTEMNCLIA [id number] [place] [address] [place] Eosinophils (Bld) [#/Vol] 0.12 10*3/uL Normal <0.46 [facility] Comment on above: Order Comment: Speci men Type: BLOOD SPECIMENOrdering Facility: [facility] Address: [address] [place] [address] Performed By: #### 5 7021-8 ####[facility] JONHJEAN [id number] [place] [address] [place] Eosinophils/100 WBC (Bld) 2.2 % Normal [facility] Comment on above: Order Comment: Speci men Type: BLOOD SPECIMENOrdering Facility: [facility] Address: [address] [place] [address] Performed By: #### 5 7021-8 ####[facility] SYSTEMNCLIManuel [id number] [place] [address] [place] Erythrocyte distribution width (RBC) [Ratio] 21.7 % High 11.5-15.0 [facility] Comment on above: Order Comment: Speci men Type: BLOOD SPECIMENOrdering Facility: [facility] Address: [address] [place] [address] Performed By: #### 5 7021-8 ####[facility] [id number] [place] [address] [place] Hematocrit (Bld) [Volume fraction] 28.9 % Low 39.0-51.0 [facility] Comment on above: Order Comment: Speci men Type: BLOOD SPECIMENOrdering Facility: [facility] Address: [address] [place] [address] Performed By: #### 5 7021-8 ####[facility] [id number] [place] [address] [place] Hemoglobin (Bld) [Mass/Vol] 9.6 g/dL Low 13.0-17.0 [facility] Comment on above: Order Comment: Speci men Type: BLOOD SPECIMENOrdering Facility: [facility] Address: [address] [place] [address] Performed By: #### 5 7021-8 ####[facility] MILLWNCLIA [id number] [place] [address] [place] Immature granulocytes (Bld) [#/Vol] 10*3/uL Normal <0.10 [facility] Comment on above: Order Comment: Speci men Type: BLOOD SPECIMENOrdering Facility: [facility] Address: [address] [place] [address] Performed By: #### 5 7021-8 ####[facility] DAYTONLIA [id number] [place] [address] [place] Immature granulocytes/100 WBC (Bld) 0.4 % Normal [facility] Comment on above: Order Comment: Speci men Type: BLOOD SPECIMENOrdering Facility: [facility] Address: [address] [place] [address] Performed By: #### 5 7021-8 ####[facility]TONL[facility] [id number] [place] [address] [place] Lymphocytes (Bld) [#/Vol] 0.85 10*3/uL Low 1.00-4.00 [facility] Comment on above: Order Comment: Speci men Type: BLOOD SPECIMENOrdering Facility: [facility] Address: [address] [place] [address] Performed By: #### 5 7021-8 ####[facility] DAYTONLIA [id number] [place] [address] [place] Lymphocytes/100 WBC (Bld) 15.9 % Normal [facility] Comment on above: Order Comment: Speci men Type: BLOOD SPECIMENOrdering Facility: [facility] Address: [address] [place] [address] Performed By: #### 5 7021-8 ####[facility] DAYTONLIA [id number] [place] [address] [place] MCH (RBC) [Entitic mass] 36.5 pg High 26.0-34.0 [facility] Comment on above: Order Comment: Speci men Type: BLOOD SPECIMENOrdering Facility: [facility] Address: [address] [place] [address] Performed By: #### 5 7021-8 ####[facility] SYSTEMNCUT[facility] [id number] [place] [address] [place] MCHC (RBC) [Mass/Vol] 33.2 g/dL Normal 30.5-36.0 [facility] Comment on above: Order Comment: Speci men Type: BLOOD SPECIMENOrdering Facility: [facility] Address: [address] [place] [address] Performed By: #### 5 7021-8 ####[facility]NCUT[facility] [id number] [place] [address] [place] MCV (RBC) [Entitic vol] 109.9 fL High 80.0-100.0 [facility] Comment on above: Order Comment: Speci men Type: BLOOD SPECIMENOrdering Facility: [facility] Address: [address] [place] [address] Performed By: #### 5 7021-8 ####[facility] [id number] [place] [address] [place] Monocytes (Bld) [#/Vol] 0.78 10*3/uL Normal <0.87 [facility] Comment on above: Order Comment: Speci men Type: BLOOD SPECIMENOrdering Facility: [facility] Address: [address] [place] [address] Performed By: #### 5 7021-8 ####[facility] [id number] [address] [place] Monocytes/100 WBC (Bld) 14.6 % Normal [facility] Comment on above: Order Comment: Speci men Type: BLOOD SPECIMENOrdering Facility: [facility] Address: [address] [place] [address] Performed By: #### 5 7021-8 ####[facility] SYSTEMROBERTLIA [id number] [place] [address] [place] Neutrophils (Bld) [#/Vol] 3.54 10*3/uL Normal 1.45-7.50 [facility] Comment on above: Order Comment: Speci men Type: BLOOD SPECIMENOrdering Facility: [facility] Address: [address] [place] [address] Performed By: #### 5 7021-8 ####[facility] [id number] [place] [address] [place] Neutrophils/100 WBC (Bld) 66.0 % Normal [facility] Comment on above: Order Comment: Speci men Type: BLOOD SPECIMENOrdering Facility: [facility] Address: [address] [place] [address] Performed By: #### 5 7021-8 ####[facility] [id number] [place] [address] [place] Nucleated RBC (Bld) [#/Vol] 10*3/uL Normal <0.01 [facility] Comment on above: Order Comment: Speci men Type: BLOOD SPECIMENOrdering Facility: [facility] Address: [address] [place] [address] Performed By: #### 5 7021-8 ####[facility] DAYTONLIA [id number] [place] [address] [place] Nucleated RBC/100 WBC (Bld) [Ratio] 0.0 /100 WBC Normal [facility] Comment on above: Order Comment: Speci men Type: BLOOD SPECIMENOrdering Facility: [facility] Address: [address] [place] [address] Performed By: #### 5 7021-8 ####[facility] CENTERWNCLIA [id number] [place] [address] [place] Platelet mean volume (Bld) [Entitic vol] 11.9 fL Normal 9.0-12.7 [facility] Comment on above: Order Comment: Speci men Type: BLOOD SPECIMENOrdering Facility: [facility] Address: [address] [place] [address] Performed By: #### 5 7021-8 ####[facility] SYSTEMNCLIA [id number] [place] [address] [place] Platelets (Bld) [#/Vol] 266 10*3/uL Normal 150-400 [facility] Comment on above: Order Comment: Speci men Type: BLOOD SPECIMENOrdering Facility: [facility] Address: [address] [place] [address] Performed By: #### 5 7021-8 ####[facility] SYSTEMNCLIA [id number] [place] [address] [place] RBC (Bld) [#/Vol] 2.63 10*6/uL Low 4.20-6.00 [facility] Comment on above: Order Comment: Speci men Type: BLOOD SPECIMENOrdering Facility: [facility] Address: [address] [place] [address] Performed By: #### 5 7021-8 ####[facility] DAYTONLIA [id number] [place] [address] [place] WBC (Bld) [#/Vol] 5.36 10*3/uL Normal 3.70-11.00 [facility] Comment on above: Order Comment: Speci men Type: BLOOD SPECIMENOrdering Facility: [facility] Address: [address] [place] [address] Performed By: #### 5 7021-8 ####[facility] SYSTEMNCLIA [id number] [place] [address] [place] Comprehensive metabolic 2000 panelon 01-20-2025 Albumin [Mass/Vol] 4.2 g/dL Normal 3.9-4.9 [facility] Comment on above: Order Comment: Speci men Type: BLOOD SPECIMENOrdering Facility: [facility] Address: [address] [place] [address] Performed By: #### 2 4323-8 ####[facility] MARVA MILLTOWNCLIA [id number] [place] [address] [place] ALP [Catalytic activity/Vol] 74 U/L Normal 38-113 [facility] Comment on above: Order Comment: Speci men Type: BLOOD SPECIMENOrdering Facility: [facility] Address: [address] [place] [address] Performed By: #### 2 4323-8 ####[facility] MILLWNCLIA [id number] [place] [address] [place] ALT [Catalytic activity/Vol] 16 U/L Normal 10-54 [facility] Comment on above: Order Comment: Speci men Type: BLOOD SPECIMENOrdering Facility: [facility] Address: [address] [place] [address] Performed By: #### 2 4323-8 ####[facility] CENTERWNCLIA [id number] [place] [address] [place] Anion gap [Moles/Vol] 10 mmol/L Normal 8-15 [facility] Comment on above: Order Comment: Speci men Type: BLOOD SPECIMENOrdering Facility: [facility] Address: [address] [place] [address] Performed By: #### 2 4323-8 ####[facility] MILLTOWNCLIA [id number] [place] [address] [place] AST [Catalytic activity/Vol] 24 U/L Normal 14-40 [facility] Comment on above: Order Comment: Speci men Type: BLOOD SPECIMENOrdering Facility: [facility] Address: [address] [place] [address] Performed By: #### 2 4323-8 ####[facility] KATECONSTANCEA [id number] [place] [address] [place] Bilirubin [Mass/Vol] 1.3 mg/dL Normal 0.2-1.3 [facility] Comment on above: Order Comment: Speci men Type: BLOOD SPECIMENOrdering Facility: [facility] Address: [address] [place] [address] Performed By: #### 2 4323-8 ####[facility] CENTERJULIOA [id number] [place] [address] [place] Calcium [Mass/Vol] 9.0 mg/dL Normal 8.5-10.2 [facility] Comment on above: Order Comment: Speci men Type: BLOOD SPECIMENOrdering Facility: [facility] Address: [address] [place] [address] Performed By: #### 2 4323-8 ####[facility] JONHWilliamsKOSTAA [id number] [place] [address] [place] Chloride [Moles/Vol] 100 mmol/L Normal 98-107 [facility] Comment on above: Order Comment: Speci men Type: BLOOD SPECIMENOrdering Facility: [facility] Address: [address] [place] [address] Performed By: #### 2 4323-8 ####[facility] CENTERWNCLIA [id number] [place] [address] [place] CO2 [Moles/Vol] 29 mmol/L Normal 22-30 [facility] Comment on above: Order Comment: Speci men Type: BLOOD SPECIMENOrdering Facility: [facility] Address: [address] [place] [address] Performed By: #### 2 4323-8 ####[facility] SYSTEMNCLI [id number] [place] [address] [place] Creatinine [Mass/Vol] 1.10 mg/dL Normal 0.73-1.22 [facility] Comment on above: Order Comment: Speci men Type: BLOOD SPECIMENOrdering Facility: [facility] Address: [address] [place] [address] Performed By: #### 2 4323-8 ####[facility] SYSTEMNCLI [id number] [place] [address] [place] Creatinine and Glomerular filtration rate.predicted panel (S/P/Bld) 64 mL/min/1.73m??? Normal >=60 [facility] Comment on above: Order Comment: [facility] Type: BLOOD SPECIMENOrdering Facility: [facility] Address: [address] [place] [address] Result Comment: Concepción mated Glomerular Filtration Rate [...] actual GFR. Performed By: #### 2 4323-8 ####[facility] [id number] [place] [address] [place] Glucose [Mass/Vol] 92 mg/dL Normal 74-99 [facility] Comment on above: Order Comment: Speci men Type: BLOOD SPECIMENOrdering Facility: [facility] Address: [address] [place] [address] Result Comment: The [place] Diabetes [employer] (ADA) provides guidance for cutoff [...] Standards of Medical Care in Diabetes 2016, [place] [employer]. Diabetes Care. 2016.39(Suppl 1). Performed By: #### 2 4323-8 ####[facility] MARVA MILLTOWROBERTLIA [id number] [place] [address] [place] Potassium [Moles/Vol] 4.4 mmol/L Normal 3.7-5.1 [facility] Comment on above: Order Comment: Julii men Type: BLOOD SPECIMENOrdering Facility: [facility] Address: [address] [place] [address] Performed By: #### 2 4323-8 ####[facility] CENTERWROBERTLIA [id number] [place] [address] [place] Protein [Mass/Vol] 6.4 g/dL Normal 6.3-8.0 [facility] Comment on above: Order Comment: Elfego gilbert Type: BLOOD SPECIMENOrdering Facility: [facility] Address: [address] [place] [address] Performed By: #### 2 4323-8 ####[facility] SYSTEMROBERTLIA [id number] [place] [address] [place] Sodium [Moles/Vol] 139 mmol/L Normal 136-144 [facility] Comment on above: Order Comment: Speci men Type: BLOOD SPECIMENOrdering Facility: [facility] Address: [address] [place] [address] Performed By: #### 2 4323-8 ####[facility] MILLWNCLIA [id number] [place] [address] [place] Urea nitrogen [Mass/Vol] 33 mg/dL High 9-24 [facility] Comment on above: Order Comment: Speci men Type: BLOOD SPECIMENOrdering Facility: [facility] Address: [address] [place] [address] Performed By: #### 2 4323-8 ####[facility] [id number] [place] [address] [place] Lipid 1996 panelon 5 Cholesterol [Mass/Vol] 80 mg/dL Normal <200 [facility] Comment on above: Order Comment: Speci men Type: BLOOD SPECIMENOrdering Facility: [facility] Address: [address] [place] [address] Result Comment: <200 mg/dL, Desirable 200-239 mg/dL, Borderline high>239 mg/dL, High Performed By: #### 3 016-3 ####[facility] LABCLIA [id number] [place] [address] [place]#### 01628-4 ####[facility] LABCLIA [id number] [facility] [address], [address] STATES OF [facility] [id number] [address] [place] Cholesterol in HDL [Mass/Vol] 50 mg/dL Normal >39 [facility] Comment on above: Order Comment: Speci men Type: BLOOD SPECIMENOrdering Facility: [facility] Address: [address] [place] [address] Result Comment: 40-5 9 mg/dL, Acceptable>59 mg/dL, High: Negative risk factor for coronary heart disease<40 mg/dL, Low: Positive risk factor for coronary heart disease Performed By: #### 3 016-3 ####[facility] LABCLIA [id number] [facility] ERK [address] [place] [address] [place]#### 03050-6 ####[facility] LABCLIA [id number] [facility] ERK [id number] [id number] [address] STATES [facility] Cholesterol in LDL [Mass/Vol] 22 mg/dL Normal <100 [facility] Comment on above: Order Comment: Speci men Type: BLOOD SPECIMENOrdering Facility: [facility] Address: [address] [place] [address] Result Comment: <100 mg/dL, Optimal 100-129 mg/dL, Near optimal/above optimal 130-159 mg/dL, Borderline high 160-189 mg/dL, High>189 mg/dL, Very highSecondary prevention optimal LDL Cholesterol levels are recommended to be < 70 mg/dL Performed By: #### 3 016-3 ####[facility] LABCLIA [id number] [address]#### [address]68-9 ####[facility] LABCLIA [id number] [address] [id number] [address] Cholesterol in LDL/Cholesterol in HDL [Mass ratio] 0.44 {ratio} Normal <2.54 [facility] Comment on above: Order Comment: Speci men Type: BLOOD SPECIMENOrdering Facility: [facility] Address: [address] [place] [address] Result Comment: Refkarey lazaroce:1. National Cholesterol Education Program ATP III Guideline At-A-Glance Quick Desk Reference: National Heart, Lung, and Blood [place]. National Institutes of Health. 2001: NIH Publication No. 01-3305.2. An International Atherosclerosis Society position paper: global recommendations for the management of dyslipidemia: executive summary, Atherosclerosis. 2014: 232(2):410-413. Performed By: #### 3 016-3 ####[facility] LABCLIA [id number] [address] [place]#### 48918-7 ####[facility] LABCLIA [id number] [address], [place] [address] [place] [facility] [id number] [address] OF [place] Cholesterol in VLDL [Mass/Vol] 8 mg/dL Normal <30 [facility] Comment on above: Order Comment: Speci men Type: BLOOD SPECIMENOrdering Facility: [facility] Address: [address] [place] [address] Performed By: #### 3 016-3 ####[facility] LABCLIA [id number] [place] [address] [place]#### 35155-8 ####[facility] LABCLIA [id number] [place] [address] [place] [facility] [id number] [place] [address] [place] Cholesterol non HDL [Mass/Vol] 30 mg/dL Normal <130 [facility] Comment on above: Order Comment: Speci men Type: BLOOD SPECIMENOrdering Facility: [facility] Address: [address] [place] [address] Result Comment: <130 mg/dL, Optimal 130-159 mg/dL, Near optimal/above optimal 160-189 mg/dL, Borderline high 190-219 mg/dL, High>219 mg/dL, Very highSecondary prevention optimal non HDL Cholesterol levels are recommended to be <100 mg/dL Performed By: #### 3 016-3 ####[facility] LABCLIA [id number] [place] [address] [place]#### 19540-9 ####[facility] LABCLIA [id number] [address], [facility] [address] [place] [facility] [id number] [address] [place] Cholesterol.total/Chol esterol in HDL [Mass ratio] 1.60 {ratio} Normal <5.10 [facility] Comment on above: Order Comment: Speci men Type: BLOOD SPECIMENOrdering Facility: [facility] Address: [address] [place] [address] Performed By: #### 3 016-3 ####[facility] LABCLIA [id number] [place] [address] [place]#### 28976-0 ####[facility] LABCLIA [id number] [place] [address] [place] [facility] [id number] [address] [place] FASTING TIME 12 hrs Normal [facility] Comment on above: Order Comment: Speci men Type: BLOOD SPECIMENOrdering Facility: [facility] Address: [address] [place] [address] Performed By: #### 3 016-3 ####[facility] LABCLIA [id number] [place] [address] [place]#### 34508-9 ####[facility] LABCLIA [id number] [place] [address] [place] [facility] [id number] [address] [place] Triglyceride [Mass/Vol] 38 mg/dL Normal <150 [facility] Comment on above: Order Comment: Speci men Type: BLOOD SPECIMENOrdering Facility: [facility] Address: [address] [place] [address] Result Comment: <150 mg/dL, Normal 150-199 mg/dL, Borderline high 200-499 mg/dL, High>499 mg/dL, Very high Performed By: #### 3 016-3 ####[facility] LABCLIA [id number] [place] [address] [place]#### 86789-6 ####[facility] LABIA [id number] [address] [id number] [place] [address] [place] TSH SerPl-aCncon 01-20-2025 TSH Qn 0.605 m[IU]/L Normal 0.270-4.20 0 [facility] Comment on above: Order Comment: Speci men Type: BLOOD SPECIMENOrdering Facility: [facility] Address: [address] [place] [address] Performed By: #### 3 016-3 ####[facility] [id number] [address] [place]#### 50666-6 ####[facility] [id number] [address] STATES OF [place] [id number] [place] [address] [place] CBC W Auto Differential pane l (Bld)on 01-06-2025 Basophils (Bld) [#/Vol] 0.04 10*3/uL Normal <0.11 [facility] Comment on above: Order Comment: Speci men Type: BLOOD SPECIMENOrdering Facility: [facility] Address: [address] [place] [address] Performed By: #### 5 7021-8 ####[place] [id number] [address] [place] Basophils/100 WBC (Bld) 0.8 % Normal [facility] Comment on above: Order Comment: Speci men Type: BLOOD SPECIMENOrdering Facility: [facility] Address: [address] [place] [address] Performed By: #### 5 7021-8 ####[facility] MILLWNCLIA [id number] [place] [address] [place] Differential cell count method Nom (Bld) Auto Normal [facility] Comment on above: Order Comment: Speci men Type: BLOOD SPECIMENOrdering Facility: [facility] Address: [address] [place] [address] Performed By: #### 5 7021-8 ####[facility] SYSTEMROBERTLIA [id number] [place] [address] [place] Eosinophils (Bld) [#/Vol] 0.13 10*3/uL Normal <0.46 [facility] Comment on above: Order Comment: Speci men Type: BLOOD SPECIMENOrdering Facility: [facility] Address: [address] [place] [address] Performed By: #### 5 7021-8 ####[facility] DAYTONLIA [id number] [place] [address] [place] Eosinophils/100 WBC (Bld) 2.5 % Normal [facility] Comment on above: Order Comment: Speci men Type: BLOOD SPECIMENOrdering Facility: [facility] Address: [address] [place] [address] Performed By: #### 5 7021-8 ####[facility] DAYTONLIA [id number] [place] [address] [place] Erythrocyte distribution width (RBC) [Ratio] 21.6 % High 11.5-15.0 [facility] Comment on above: Order Comment: Speci men Type: BLOOD SPECIMENOrdering Facility: [facility] Address: [address] [place] [address] Performed By: #### 5 7021-8 ####[facility] SYSTEMNCLIA [id number] [place] [address] [place] Hematocrit (Bld) [Volume fraction] 29.4 % Low 39.0-51.0 [facility] Comment on above: Order Comment: Speci men Type: BLOOD SPECIMENOrdering Facility: [facility] Address: [address] [place] [address] Performed By: #### 5 7021-8 ####[facility] [id number] [place] [address] [place] Hemoglobin (Bld) [Mass/Vol] 9.7 g/dL Low 13.0-17.0 [facility] Comment on above: Order Comment: Speci men Type: BLOOD SPECIMENOrdering Facility: [facility] Address: [address] [place] [address] Performed By: #### 5 7021-8 ####[facility] [id number] [place] [address] [place] Immature granulocytes (Bld) [#/Vol] 10*3/uL Normal <0.10 [facility] Comment on above: Order Comment: Speci men Type: BLOOD SPECIMENOrdering Facility: [facility] Address: [address] [place] [address] Performed By: #### 5 7021-8 ####[facility] [id number] [place] [address] [place] Immature granulocytes/100 WBC (Bld) 0.4 % Normal [facility] Comment on above: Order Comment: Speci men Type: BLOOD SPECIMENOrdering Facility: [facility] Address: [address] [place] [address] Performed By: #### 5 7021-8 ####[facility] [id number] [place] [address] [place] Lymphocytes (Bld) [#/Vol] 1.00 10*3/uL Normal 1.00-4.00 [facility] Comment on above: Order Comment: Speci men Type: BLOOD SPECIMENOrdering Facility: [facility] Address: [address] [place] [address] Performed By: #### 5 7021-8 ####[facility] JONHJEAN [id number] [place] [address] [place] Lymphocytes/100 WBC (Bld) 19.2 % Normal [facility] Comment on above: Order Comment: Speci men Type: BLOOD SPECIMENOrdering Facility: [facility] Address: [address] [place] [address] Performed By: #### 5 7021-8 ####[facility] [id number] [place] [address] [place] MCH (RBC) [Entitic mass] 36.5 pg High 26.0-34.0 [facility] Comment on above: Order Comment: Speci men Type: BLOOD SPECIMENOrdering Facility: [facility] Address: [address] [place] [address] Performed By: #### 5 7021-8 ####[facility] SYSTEMNCManuel [id number] [place] [address] [place] MCHC (RBC) [Mass/Vol] 33.0 g/dL Normal 30.5-36.0 [facility] Comment on above: Order Comment: Speci men Type: BLOOD SPECIMENOrdering Facility: [facility] Address: [address] [place] [address] Performed By: #### 5 7021-8 ####[facility] SYSTEMNCLI [id number] [place] [address] [place] MCV (RBC) [Entitic vol] 110.5 fL High 80.0-100.0 [facility] Comment on above: Order Comment: Speci men Type: BLOOD SPECIMENOrdering Facility: [facility] Address: [address] [place] [address] Performed By: #### 5 7021-8 ####[facility] MILLWNCLIA [id number] [place] [address] [place] Monocytes (Bld) [#/Vol] 0.79 10*3/uL Normal <0.87 [facility] Comment on above: Order Comment: Speci men Type: BLOOD SPECIMENOrdering Facility: [facility] Address: [address] [place] [address] Performed By: #### 5 7021-8 ####[facility] DAYTONLIA [id number] [place] [address] [place] Monocytes/100 WBC (Bld) 15.1 % Normal [facility] Comment on above: Order Comment: Speci men Type: BLOOD SPECIMENOrdering Facility: [facility] Address: [address] [place] [address] Performed By: #### 5 7021-8 ####[facility] DAYTONLIA [id number] [place] [address] [place] Neutrophils (Bld) [#/Vol] 3.24 10*3/uL Normal 1.45-7.50 [facility] Comment on above: Order Comment: Speci men Type: BLOOD SPECIMENOrdering Facility: [facility] Address: [address] [place] [address] Performed By: #### 5 7021-8 ####[facility] DAYTONLIA [id number] [place] [address] [place] Neutrophils/100 WBC (Bld) 62.0 % Normal [facility] Comment on above: Order Comment: Speci men Type: BLOOD SPECIMENOrdering Facility: [facility] Address: [address] [place] [address] Performed By: #### 5 7021-8 ####[facility] DAYTONLIA [id number] [place] [address] [place] Nucleated RBC (Bld) [#/Vol] 10*3/uL Normal <0.01 [facility] Comment on above: Order Comment: Speci men Type: BLOOD SPECIMENOrdering Facility: [facility] Address: [address] [place] [address] Performed By: #### 5 7021-8 ####[facility] [id number] [place] [address] [place] Nucleated RBC/100 WBC (Bld) [Ratio] 0.0 /100 WBC Normal [facility] Comment on above: Order Comment: Speci men Type: BLOOD SPECIMENOrdering Facility: [facility] Address: [address] [place] [address] Performed By: #### 5 7021-8 ####[facility] [id number] [place] [address] [place] Platelet mean volume (Bld) [Entitic vol] 11.5 fL Normal 9.0-12.7 [facility] Comment on above: Order Comment: Speci men Type: BLOOD SPECIMENOrdering Facility: [facility] Address: [address] [place] [address] Performed By: #### 5 7021-8 ####[facility] [id number] [place] [address] [place] Platelets (Bld) [#/Vol] 275 10*3/uL Normal 150-400 [facility] Comment on above: Order Comment: Speci men Type: BLOOD SPECIMENOrdering Facility: [facility] Address: [address] [place] [address] Performed By: #### 5 7021-8 ####[facility] [id number] [place] [address] [place] RBC (Bld) [#/Vol] 2.66 10*6/uL Low 4.20-6.00 [facility] Comment on above: Order Comment: Speci men Type: BLOOD SPECIMENOrdering Facility: [facility] Address: [address] [place] [address] Performed By: #### 5 7021-8 ####[facility] JONHWNCLIA [id number] [place] [address] [place] WBC (Bld) [#/Vol] 5.22 10*3/uL Normal 3.70-11.00 [facility] Comment on above: Order Comment: Speci men Type: BLOOD SPECIMENOrdering Facility: [facility] Address: [address] [place] [address] Performed By: #### 5 7021-8 ####[facility] SYSTEMNCA [id number] [place] [address] [place] CNOVSPon 01-06-2025 CNOVSP Normal [facility] Comprehensive metabolic 2000 panelon 01-06-2025 Albumin [Mass/Vol] 4.1 g/dL Normal 3.9-4.9 [facility] Comment on above: Order Comment: Speci men Type: BLOOD SPECIMENOrdering Facility: [facility] Address: [address] [place] [address] Performed By: #### 2 4323-8 ####[facility] SYSTEMNCLIA [id number] [place] [address] [place] ALP [Catalytic activity/Vol] 84 U/L Normal 38-113 [facility] Comment on above: Order Comment: Speci men Type: BLOOD SPECIMENOrdering Facility: [facility] Address: [address] [place] [address] Performed By: #### 2 4323-8 ####[facility] CENTERWNCLIA [id number] [place] [address] [place] ALT [Catalytic activity/Vol] 17 U/L Normal 10-54 [facility] Comment on above: Order Comment: Speci men Type: BLOOD SPECIMENOrdering Facility: [facility] Address: [address] [place] [address] Performed By: #### 2 4323-8 ####[facility] MARVA MILLTOWNCLIA [id number] [place] [address] [place] Anion gap [Moles/Vol] 11 mmol/L Normal 8-15 [facility] Comment on above: Order Comment: Speci men Type: BLOOD SPECIMENOrdering Facility: [facility] Address: [address] [place] [address] Performed By: #### 2 4323-8 ####[facility] MARVA MILLTOWNCLIA [id number] [place] [address] [place] AST [Catalytic activity/Vol] 24 U/L Normal 14-40 [facility] Comment on above: Order Comment: Speci men Type: BLOOD SPECIMENOrdering Facility: [facility] Address: [address] [place] [address] Performed By: #### 2 4323-8 ####[facility] MARVA MILLTOWNCLIA [id number] [place] [address] [place] Bilirubin [Mass/Vol] 1.4 mg/dL High 0.2-1.3 [facility] Comment on above: Order Comment: Speci men Type: BLOOD SPECIMENOrdering Facility: [facility] Address: [address] [place] [address] Performed By: #### 2 4323-8 ####[facility] MARVA MILLTOWNCLIA [id number] [place] [address] [place] Calcium [Mass/Vol] 9.1 mg/dL Normal 8.5-10.2 [facility] Comment on above: Order Comment: Speci men Type: BLOOD SPECIMENOrdering Facility: [facility] Address: [address] [place] [address] Performed By: #### 2 4323-8 ####[facility] MARVA MILLTOWNCLIA [id number] [place] [address] [place] Chloride [Moles/Vol] 103 mmol/L Normal 98-107 [facility] Comment on above: Order Comment: Speci men Type: BLOOD SPECIMENOrdering Facility: [facility] Address: [address] [place] [address] Performed By: #### 2 4323-8 ####[facility] JONHSAINT JOHN'S HEALTH SYSTEMLIA [id number] [place] [address] [place] CO2 [Moles/Vol] 28 mmol/L Normal 22-30 [facility] Comment on above: Order Comment: Speci men Type: BLOOD SPECIMENOrdering Facility: [facility] Address: [address] [place] [address] Performed By: #### 2 4323-8 ####[facility] [id number] [place] [address] [place] [facility] Creatinine [Mass/Vol] 0.93 mg/dL Normal 0.73-1.22 [facility] Comment on above: Order Comment: Speci men Type: BLOOD SPECIMENOrdering Facility: [facility] Address: [address] [place] [address] Performed By: #### 2 4323-8 ####[facility] SYSTEMNCLI [id number] [address] OF [facility] Creatinine and Glomerular filtration rate.predicted panel (S/P/Bld) 78 mL/min/1.73m??? Normal >=60 [facility] Comment on above: Order Comment: Speci men Type: BLOOD SPECIMENOrdering Facility: [facility] Address: [address] [place] [address] Result Comment: Concepción mated Glomerular Filtration Rate [...] actual GFR. Performed By: #### 2 4323-8 ####[facility] SYSTEMNCLIA [id number] [place] [address] [place] Glucose [Mass/Vol] 78 mg/dL Normal 74-99 [facility] Comment on above: Order Comment: Speci men Type: BLOOD SPECIMENOrdering Facility: [facility] Address: [address] [place] [address] Result Comment: The [place] Diabetes Association (ADA) provides guidance for cutoff [...] Standards of Medical Care in Diabetes 2016, [place] [employer]. Diabetes Care. 2016.39(Suppl 1). Performed By: #### 2 4323-8 ####[facility] SYSTEMNCLIA [id number] [place] [address] [place] Potassium [Moles/Vol] 4.4 mmol/L Normal 3.7-5.1 [facility] Comment on above: Order Comment: Elfego gilbert Type: BLOOD SPECIMENOrdering Facility: [facility] Address: [address] [place] [address] Performed By: #### 2 4323-8 ####[facility] [id number] [place] [address] [place] Protein [Mass/Vol] 6.7 g/dL Normal 6.3-8.0 [facility] Comment on above: Order Comment: Elfego gilbert Type: BLOOD SPECIMENOrdering Facility: [facility] Address: [address] [place] [address] Performed By: #### 2 4323-8 ####[facility] [id number] [place] [address] [place] Sodium [Moles/Vol] 142 mmol/L Normal 136-144 [facility] Comment on above: Order Comment: Speci men Type: BLOOD SPECIMENOrdering Facility: [facility] Address: [address] [place] [address] Performed By: #### 2 4323-8 ####[facility] [id number] [place] [address] [place] Urea nitrogen [Mass/Vol] 29 mg/dL High 9-24 [facility] Comment on above: Order Comment: Speci men Type: BLOOD SPECIMENOrdering Facility: [facility] Address: [address] [place] [address] Performed By: #### 2 4323-8 ####[facility] [id number] [place] [address] [place] EPO SerPl-aCncon 01-06-2025 Erythropoietin (EPO) Qn 136.9 mIU/mL High 2.6-18.5 [facility] Comment on above: Order Comment: Speci men Type: BLOOD SPECIMENOrdering Facility: [facility] Address: [address] [place] [address] Performed By: #### 1 5061-5 ####[facility] LABCLIA [id number] [place] [address] [place] Ferritin SerPl-mCncon 2024 Ferritin [Mass/Vol] 551.0 ng/mL Normal 30.3-565.7 [facility] Comment on above: Order Comment: Speci men Type: BLOOD SPECIMENOrdering Facility: [facility] Address: [address] [place] [address] Performed By: #### 2 284-8, 2132-9, 34110-0, 2276-4 ####[facility] LABORATORYCLIA [id number] [place] [address] [place] Folate SerPl-ncon 01-06-20 25 Folate [Mass/Vol] ng/mL Normal >4.7 [facility] Comment on above: Order Comment: Speci men Type: BLOOD SPECIMENOrdering Facility: [facility] Address: [address] [place] [address] Result Comment: A re sult of > 20 ng/mL is not necessarily indicative of a pathologic or treatable condition: it reflects a limitation of the test methodology.Assay reference range: 4.8 to 24.2 ng/mL. Suitable for detection of folate deficiency.Reference:Folate III (Folate III) [package insert V 1.0 Serbian]. [facility], [place], [place]: September 2015. Performed By: #### 2 284-8, 2-9, 12519-6, 6-4 ####[facility] LABORATORYCLIA [id number] [place] [address] [place] Iron and Iron binding capaci panel 01-06-2025 Iron [Mass/Vol] 155 ug/dL Normal 41-186 [facility] Comment on above: Order Comment: Speci men Type: BLOOD SPECIMENOrdering Facility: [facility] Address: [address] [place] [address] Performed By: #### 2 284-8, 2132-9, 48310-1, 6-4 ####[facility] LABORATORYCLIA [id number] [place] [address] [place] Iron binding capacity [Mass/Vol] 172 ug/dL Low 232-386 [facility] Comment on above: Order Comment: Speci men Type: BLOOD SPECIMENOrdering Facility: [facility] Address: [address] [place] [address] Performed By: #### 2 284-8, 2132-9, 12005-3, 6-4 ####[facility] LABORATORYCLIA [id number] [address] [place] Iron saturation [Mass fraction] 90.1 % High 15.0-57.0 [facility] Comment on above: Order Comment: Speci men Type: BLOOD SPECIMENOrdering Facility: [facility] Address: [address] [place] [address] Performed By: #### 2 284-8, 2132-9, 09374-7, 6-4 ####[facility] LABORATORYCLIA [id number] [address] Methylmalonate SerPl-sCncon 01-06-2025 Methylmalonate [Moles/Vol] 0.21 umol/L Normal <=0.40 [facility] Comment on above: Order Comment: Elfego vladimir Type: BLOOD SPECIMENOrdering Facility: [facility] Address: [address] [place] [address] Result Comment: This test was developed, and its performance characteristics determined by the [facility] Department of Pathology and Laboratory Medicine. It has not been cleared or approved by the FDA. The [facility] Department of Pathology and Laboratory Medicine is regulated under CLIA as qualified to perform high-complexity testing. This test is used for clinical purposes. It should not be regarded as investigational or for research. Performed By: #### 1 3964-2 ####[facility] LABCLIA [id number] [address] [place] Vit B12 SerPl-mCncon 025 Cobalamin (Vitamin B12) [Mass/Vol] 768 pg/mL Normal 232-1245 [facility] Comment on above: Order Comment: Speci men Type: BLOOD SPECIMENOrdering Facility: [facility] Address: [address] [place] [address] Performed By: #### 2 284-8, 2132-9, 08444-5, 6-4 ####[facility] LABORATORYCLIA [id number] [address] [place] CNOVon 12-30-2024 CNOV Office Visit ([facility] ) -- KIERRASRINI ([id number]) 1935 M Date Time Provider Department 12/30/24 2:15 PM [facility] DEVICE [address] During your visit today, we recorded the following information about you: Israel Minor MD 01/08/2025 10:00 PM Signed Dual Pacer Remote Check Date: December 30, 2024 Time: 2:51 PM Devices: Implants Ra Lead Biotronik-09/17/2022 - Implanted Heart Model/Cat number: ADAIR Pena [id number] Serial number: [id number] 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 Media Lot number: LEFT AXILLARY VEIN Size: Right Atrial Pacing Lead Rv Lead Biotronik-09/17/2022 - Implanted Heart Model/Cat number: ADAIR Pena [id number] Serial number: [id number] Auto Damage Insurance Appraiser: [employer] Lot number: LEFT CEPHALIC VEIN Size: Right Ventricular Pacing Lead Pacemaker Dual Pacer Biotronik-09/17/2022 - Implanted (Left) Chest Wall Model/Cat number: EDORA [id number] Serial number: [id number] 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 Media Lot number: INITIAL DUAL PACER IMPLANT. Size: [...] and provider appointment. View External Cardiology - General Operations Manager Strips [ID [id number]] Allergies As of Date: 12/30/2024 Noted Allergy [...] DAUGHTER Ten [place], [facility] Problem List As Of Date 12/30/2024 Noted [...] Seborrheic Essie (more content not included)... Normal [facility] CBC W Auto Differential pane l (Bld)on 12-23-2024 Basophils (Bld) [#/Vol] 0.06 10*3/uL Normal <0.11 [facility] Comment on above: Order Comment: Speci men Type: BLOOD SPECIMENOrdering Facility: [facility] Address: [address] [place] [address] [place] [address] Performed By: #### 5 7021-8 ####[facility] MILLIVANAWNCLIA [id number] [place] [address] [place] Basophils/100 WBC (Bld) 1.2 % Normal [facility] Comment on above: Order Comment: Speci men Type: BLOOD SPECIMENOrdering Facility: [facility] Address: [address] [place] [address] Performed By: #### 5 7021-8 ####[facility] JONHWNCLIA [id number] [place] [address] [place] Differential cell count method Nom (Bld) Auto Normal [facility] Comment on above: Order Comment: Speci men Type: BLOOD SPECIMENOrdering Facility: [facility] Address: [address] [place] [address] Performed By: #### 5 7021-8 ####[facility] JONHEMMETROBERTLIA [id number] [place] [address] [place] Eosinophils (Bld) [#/Vol] 0.18 10*3/uL Normal <0.46 [facility] Comment on above: Order Comment: Speci men Type: BLOOD SPECIMENOrdering Facility: [facility] Address: [address] [place] [address] Performed By: #### 5 7021-8 ####[facility] JONHSOLIA [id number] [place] [address] [place] Eosinophils/100 WBC (Bld) 3.7 % Normal [facility] Comment on above: Order Comment: Speci men Type: BLOOD SPECIMENOrdering Facility: [facility] Address: [address] [place] [address] Performed By: #### 5 7021-8 ####[facility] JONHEMMETROBERTLIA [id number] [place] [address] [place] Erythrocyte distribution width (RBC) [Ratio] 20.5 % High 11.5-15.0 [facility] Comment on above: Order Comment: Speci men Type: BLOOD SPECIMENOrdering Facility: [facility] Address: [address] [place] [address] Performed By: #### 5 7021-8 ####[facility] SYSTEMNCLI [id number] [place] [address] [place] Hematocrit (Bld) [Volume fraction] 28.7 % Low 39.0-51.0 [facility] Comment on above: Order Comment: Speci men Type: BLOOD SPECIMENOrdering Facility: [facility] Address: [address] [place] [address] Performed By: #### 5 7021-8 ####[facility] SYSTEMNCLIA [id number] [place] [address] [place] Hemoglobin (Bld) [Mass/Vol] 9.7 g/dL Low 13.0-17.0 [facility] Comment on above: Order Comment: Speci men Type: BLOOD SPECIMENOrdering Facility: [facility] Address: [address] [place] [address] Performed By: #### 5 7021-8 ####[facility] SYSTEMNCLIA [id number] [place] [address] [place] Immature granulocytes (Bld) [#/Vol] 10*3/uL Normal <0.10 [facility] Comment on above: Order Comment: Speci men Type: BLOOD SPECIMENOrdering Facility: [facility] Address: [address] [place] [address] Performed By: #### 5 7021-8 ####[facility] SYSTEMNCLIA [id number] [place] [address] [place] Immature granulocytes/100 WBC (Bld) 0.4 % Normal [facility] Comment on above: Order Comment: Speci men Type: BLOOD SPECIMENOrdering Facility: [facility] Address: [address] [place] [address] Performed By: #### 5 7021-8 ####[facility] MILLTOWNCLIA [id number] [place] [address] [place] Lymphocytes (Bld) [#/Vol] 1.06 10*3/uL Normal 1.00-4.00 [facility] Comment on above: Order Comment: Speci men Type: BLOOD SPECIMENOrdering Facility: [facility] Address: [address] [place] [address] Performed By: #### 5 7021-8 ####[facility] SYSTEMNCLIA [id number] [place] [address] [place] Lymphocytes/100 WBC (Bld) 21.8 % Normal [facility] Comment on above: Order Comment: Speci men Type: BLOOD SPECIMENOrdering Facility: [facility] Address: [address] [place] [address] Performed By: #### 5 7021-8 ####[facility] SYSTEMNCLIA [id number] [place] [address] [place] MCH (RBC) [Entitic mass] 36.6 pg High 26.0-34.0 [facility] Comment on above: Order Comment: Speci men Type: BLOOD SPECIMENOrdering Facility: [facility] Address: [address] [place] [address] Performed By: #### 5 7021-8 ####[facility] SYSTEMNCLIA [id number] [place] [address] [place] MCHC (RBC) [Mass/Vol] 33.8 g/dL Normal 30.5-36.0 [facility] Comment on above: Order Comment: Speci men Type: BLOOD SPECIMENOrdering Facility: [facility] Address: [address] [place] [address] Performed By: #### 5 7021-8 ####[facility] [id number] [place] [address] [place] MCV (RBC) [Entitic vol] 108.3 fL High 80.0-100.0 [facility] Comment on above: Order Comment: Speci men Type: BLOOD SPECIMENOrdering Facility: [facility] Address: [address] [place] [address] Performed By: #### 5 7021-8 ####[facility] [id number] [place] [address] [place] Monocytes (Bld) [#/Vol] 0.69 10*3/uL Normal <0.87 [facility] Comment on above: Order Comment: Speci men Type: BLOOD SPECIMENOrdering Facility: [facility] Address: [address] [place] [address] Performed By: #### 5 7021-8 ####[facility] [id number] [place] [address] [place] Monocytes/100 WBC (Bld) 14.2 % Normal [facility] Comment on above: Order Comment: Speci men Type: BLOOD SPECIMENOrdering Facility: [facility] Address: [address] [place] [address] Performed By: #### 5 7021-8 ####[facility] DAYTONLIA [id number] [place] [address] [place] Neutrophils (Bld) [#/Vol] 2.86 10*3/uL Normal 1.45-7.50 [facility] Comment on above: Order Comment: Speci men Type: BLOOD SPECIMENOrdering Facility: [facility] Address: [address] [place] [address] Performed By: #### 5 7021-8 ####[facility] DAYTONLIA [id number] [place] [address] [place] Neutrophils/100 WBC (Bld) 58.7 % Normal [facility] Comment on above: Order Comment: Speci men Type: BLOOD SPECIMENOrdering Facility: [facility] Address: [address] [place] [address] Performed By: #### 5 7021-8 ####[facility] JONHEMMETKOSTA [id number] [place] [address] [place] Nucleated RBC (Bld) [#/Vol] 10*3/uL Normal <0.01 [facility] Comment on above: Order Comment: Speci men Type: BLOOD SPECIMENOrdering Facility: [facility] Address: [address] [place] [address] Performed By: #### 5 7021-8 ####[facility] [id number] [place] [address] [place] Nucleated RBC/100 WBC (Bld) [Ratio] 0.0 /100 WBC Normal [facility] Comment on above: Order Comment: Speci men Type: BLOOD SPECIMENOrdering Facility: [facility] Address: [address] [place] [address] Performed By: #### 5 7021-8 ####[facility] [id number] [place] [address] [place] Platelet mean volume (Bld) [Entitic vol] 10.9 fL Normal 9.0-12.7 [facility] Comment on above: Order Comment: Speci men Type: BLOOD SPECIMENOrdering Facility: [facility] Address: [address] [place] [address] Performed By: #### 5 7021-8 ####[facility] [id number] [place] [address] [place] Platelets (Bld) [#/Vol] 238 10*3/uL Normal 150-400 [facility] Comment on above: Order Comment: Speci men Type: BLOOD SPECIMENOrdering Facility: [facility] Address: [address] [place] [address] Performed By: #### 5 7021-8 ####[facility] SYSTEMNCLIA [id number] [place] [address] [place] RBC (Bld) [#/Vol] 2.65 10*6/uL Low 4.20-6.00 [facility] Comment on above: Order Comment: Speci men Type: BLOOD SPECIMENOrdering Facility: [facility] Address: [address] [place] [address] Performed By: #### 5 7021-8 ####[facility] SYSTEMNCLIA [id number] [place] [address] [place] WBC (Bld) [#/Vol] 4.87 10*3/uL Normal 3.70-11.00 [facility] Comment on above: Order Comment: Speci men Type: BLOOD SPECIMENOrdering Facility: [facility] Address: [address] [place] [address] Performed By: #### 5 7021-8 ####[facility] SYSTEMNCLIA [id number] [place] [address] [place] CBC W Auto Differential pane l (Bld)on 12-09-2024 Basophils (Bld) [#/Vol] 0.05 10*3/uL Normal <0.11 [facility] Comment on above: Order Comment: Speci men Type: BLOOD SPECIMENOrdering Facility: [facility] Address: [address] [place] [address] Performed By: #### 5 7021-8 ####[facility] SYSTEMNCLIA [id number] [place] [address] [place] Basophils/100 WBC (Bld) 0.9 % Normal [facility] Comment on above: Order Comment: Speci men Type: BLOOD SPECIMENOrdering Facility: [facility] Address: [address] [place] [address] Performed By: #### 5 7021-8 ####[facility] SYSTEMNCLIA [id number] [place] [address] [place] Differential cell count method Nom (Bld) Auto Normal [facility] Comment on above: Order Comment: Speci men Type: BLOOD SPECIMENOrdering Facility: [facility] Address: [address] [place] [address] Performed By: #### 5 7021-8 ####[facility] SYSTEMROBERTUT[facility] [id number] [place] [address] [place] Eosinophils (Bld) [#/Vol] 0.13 10*3/uL Normal <0.46 [facility] Comment on above: Order Comment: Speci men Type: BLOOD SPECIMENOrdering Facility: [facility] Address: [address] [place] [address] Performed By: #### 5 7021-8 ####[facility] [id number] [place] [address] [place] Eosinophils/100 WBC (Bld) 2.3 % Normal [facility] Comment on above: Order Comment: Speci men Type: BLOOD SPECIMENOrdering Facility: [facility] Address: [address] [place] [address] Performed By: #### 5 7021-8 ####[facility] [id number] [place] [address] [place] Erythrocyte distribution width (RBC) [Ratio] 20.4 % High 11.5-15.0 [facility] Comment on above: Order Comment: Speci men Type: BLOOD SPECIMENOrdering Facility: [facility] Address: [address] [place] [address] Performed By: #### 5 7021-8 ####[facility] SYSTEMNCLIA [id number] [place] [address] [place] Hematocrit (Bld) [Volume fraction] 29.1 % Low 39.0-51.0 [facility] Comment on above: Order Comment: Speci men Type: BLOOD SPECIMENOrdering Facility: [facility] Address: [address] [place] [address] Performed By: #### 5 7021-8 ####[facility] [id number] [place] [address] [place] Hemoglobin (Bld) [Mass/Vol] 9.6 g/dL Low 13.0-17.0 [facility] Comment on above: Order Comment: Speci men Type: BLOOD SPECIMENOrdering Facility: [facility] Address: [address] [place] [address] Performed By: #### 5 7021-8 ####[facility] [id number] [place] [address] [place] Immature granulocytes (Bld) [#/Vol] 10*3/uL Normal <0.10 [facility] Comment on above: Order Comment: Speci men Type: BLOOD SPECIMENOrdering Facility: [facility] Address: [address] [place] [address] Performed By: #### 5 7021-8 ####[facility] [id number] [place] [address] [place] Immature granulocytes/100 WBC (Bld) 0.3 % Normal [facility] Comment on above: Order Comment: Speci men Type: BLOOD SPECIMENOrdering Facility: [facility] Address: [address] [place] [address] Performed By: #### 5 7021-8 ####[facility] [id number] [place] [address] [place] Lymphocytes (Bld) [#/Vol] 1.12 10*3/uL Normal 1.00-4.00 [facility] Comment on above: Order Comment: Speci men Type: BLOOD SPECIMENOrdering Facility: [facility] Address: [address] [place] [address] Performed By: #### 5 7021-8 ####[facility] SYSTEMKOSTA [id number] [place] [address] [place] Lymphocytes/100 WBC (Bld) 19.5 % Normal [facility] Comment on above: Order Comment: Speci men Type: BLOOD SPECIMENOrdering Facility: [facility] Address: [address] [place] [address] Performed By: #### 5 7021-8 ####[facility] [id number] [place] [address] [place] MCH (RBC) [Entitic mass] 36.6 pg High 26.0-34.0 [facility] Comment on above: Order Comment: Speci men Type: BLOOD SPECIMENOrdering Facility: [facility] Address: [address] [place] [address] Performed By: #### 5 7021-8 ####[facility] [id number] [place] [address] [place] MCHC (RBC) [Mass/Vol] 33.0 g/dL Normal 30.5-36.0 [facility] Comment on above: Order Comment: Speci men Type: BLOOD SPECIMENOrdering Facility: [facility] Address: [address] [place] [address] Performed By: #### 5 7021-8 ####[facility] SYSTEMNCLIA [id number] [place] [address] [place] MCV (RBC) [Entitic vol] 111.1 fL High 80.0-100.0 [facility] Comment on above: Order Comment: Speci men Type: BLOOD SPECIMENOrdering Facility: [facility] Address: [address] [place] [address] Performed By: #### 5 7021-8 ####[facility]ENTERWNCLIA [id number] [place] [address] [place] Monocytes (Bld) [#/Vol] 0.82 10*3/uL Normal <0.87 [facility] Comment on above: Order Comment: Speci men Type: BLOOD SPECIMENOrdering Facility: [facility] Address: [address] [place] [address] Performed By: #### 5 7021-8 ####[facility] [id number] [place] [address] [place] Monocytes/100 WBC (Bld) 14.3 % Normal [facility] Comment on above: Order Comment: Speci men Type: BLOOD SPECIMENOrdering Facility: [facility] Address: [address] [place] [address] Performed By: #### 5 7021-8 ####[facility] [id number] [place] [address] [place] Neutrophils (Bld) [#/Vol] 3.61 10*3/uL Normal 1.45-7.50 [facility] Comment on above: Order Comment: Speci men Type: BLOOD SPECIMENOrdering Facility: [facility] Address: [address] [place] [address] Performed By: #### 5 7021-8 ####[facility] DAYTONLIA [id number] [place] [address] [place] Neutrophils/100 WBC (Bld) 62.7 % Normal [facility] Comment on above: Order Comment: Speci men Type: BLOOD SPECIMENOrdering Facility: [facility] Address: [address] [place] [address] Performed By: #### 5 7021-8 ####[facility] DAYTONLIA [id number] [place] [address] [place] Nucleated RBC (Bld) [#/Vol] 0.02 10*3/uL High <0.01 [facility] Comment on above: Order Comment: Speci men Type: BLOOD SPECIMENOrdering Facility: [facility] Address: [address] [place] [address] Performed By: #### 5 7021-8 ####[facility] SYSTEMNCLI [id number] [place] [address] [place] Nucleated RBC/100 WBC (Bld) [Ratio] 0.3 /100 WBC Normal [facility] Comment on above: Order Comment: Speci men Type: BLOOD SPECIMENOrdering Facility: [facility] Address: [address] [place] [address] Performed By: #### 5 7021-8 ####[facility] [id number] [place] [address] [place] Platelet mean volume (Bld) [Entitic vol] 10.7 fL Normal 9.0-12.7 [facility] Comment on above: Order Comment: Speci men Type: BLOOD SPECIMENOrdering Facility: [facility] Address: [address] [place] [address] Performed By: #### 5 7021-8 ####[facility] SYSTEMNCLIA [id number] [place] [address] [place] Platelets (Bld) [#/Vol] 261 10*3/uL Normal 150-400 [facility] Comment on above: Order Comment: Speci men Type: BLOOD SPECIMENOrdering Facility: [facility] Address: [address] [place] [address] Performed By: #### 5 7021-8 ####[facility] [id number] [place] [address] [place] RBC (Bld) [#/Vol] 2.62 10*6/uL Low 4.20-6.00 [facility] Comment on above: Order Comment: Speci men Type: BLOOD SPECIMENOrdering Facility: [facility] Address: [address] [place] [address] Performed By: #### 5 7021-8 ####[facility] [id number] [place] [address] [place] WBC (Bld) [#/Vol] 5.75 10*3/uL Normal 3.70-11.00 [facility] Comment on above: Order Comment: Speci men Type: BLOOD SPECIMENOrdering Facility: [facility] Address: [address] [place] [address] Performed By: #### 5 7021-8 ####[facility] [id number] [place] [address] [place] CNPNon 11-25-2024 CNPN Normal [facility] CBC W Auto Differential pane l (Bld)on 11-24-2024 Basophils (Bld) [#/Vol] 0.06 10*3/uL Normal <0.11 [facility] Comment on above: Order Comment: Speci men Type: BLOOD SPECIMENOrdering Facility: [facility] Address: [address] [place] [address] Performed By: #### 5 7021-8 ####[facility] SYSTEMNCA [id number] [place] [address] [place] Basophils/100 WBC (Bld) 0.9 % Normal [facility] Comment on above: Order Comment: Speci men Type: BLOOD SPECIMENOrdering Facility: [facility] Address: [address] [place] [address] Performed By: #### 5 7021-8 ####[facility] [id number] [place] [address] [place] Differential cell count method Nom (Bld) Auto Normal [facility] Comment on above: Order Comment: Speci men Type: BLOOD SPECIMENOrdering Facility: [facility] Address: [address] [place] [address] Performed By: #### 5 7021-8 ####[facility] MILLWNCLIA [id number] [place] [address] [place] Eosinophils (Bld) [#/Vol] 0.10 10*3/uL Normal <0.46 [facility] Comment on above: Order Comment: Speci men Type: BLOOD SPECIMENOrdering Facility: [facility] Address: [address] [place] [address] Performed By: #### 5 7021-8 ####[facility] CENTERWNCLIA [id number] [place] [address] [place] Eosinophils/100 WBC (Bld) 1.5 % Normal [facility] Comment on above: Order Comment: Speci men Type: BLOOD SPECIMENOrdering Facility: [facility] Address: [address] [place] [address] Performed By: #### 5 7021-8 ####[facility] SYSTEMNCLIA [id number] [place] [address] [place] Erythrocyte distribution width (RBC) [Ratio] 19.7 % High 11.5-15.0 [facility] Comment on above: Order Comment: Speci men Type: BLOOD SPECIMENOrdering Facility: [facility] Address: [address] [place] [address] Performed By: #### 5 7021-8 ####[facility] CENTERWNCLIA [id number] [place] [address] [place] Hematocrit (Bld) [Volume fraction] 26.5 % Low 39.0-51.0 [facility] Comment on above: Order Comment: Speci men Type: BLOOD SPECIMENOrdering Facility: [facility] Address: [address] [place] [address] Performed By: #### 5 7021-8 ####[facility] SYSTEMNCLIA [id number] [place] [address] [place] Hemoglobin (Bld) [Mass/Vol] 8.8 g/dL Low 13.0-17.0 [facility] Comment on above: Order Comment: Speci men Type: BLOOD SPECIMENOrdering Facility: [facility] Address: [address] [place] [address] Performed By: #### 5 7021-8 ####[facility] [id number] [place] [address] [place] Immature granulocytes (Bld) [#/Vol] 0.03 10*3/uL Normal <0.10 [facility] Comment on above: Order Comment: Speci men Type: BLOOD SPECIMENOrdering Facility: [facility] Address: [address] [place] [address] Performed By: #### 5 7021-8 ####[facility] [id number] [place] [address] [place] Immature granulocytes/100 WBC (Bld) 0.5 % Normal [facility] Comment on above: Order Comment: Speci men Type: BLOOD SPECIMENOrdering Facility: [facility] Address: [address] [place] [address] Performed By: #### 5 7021-8 ####[facility] [id number] [place] [address] [place] Lymphocytes (Bld) [#/Vol] 1.04 10*3/uL Normal 1.00-4.00 [facility] Comment on above: Order Comment: Speci men Type: BLOOD SPECIMENOrdering Facility: [facility] Address: [address] [place] [address] Performed By: #### 5 7021-8 ####[facility] [id number] [place] [address] [place] Lymphocytes/100 WBC (Bld) 16.0 % Normal [facility] Comment on above: Order Comment: Speci men Type: BLOOD SPECIMENOrdering Facility: [facility] Address: [address] [place] [address] Performed By: #### 5 7021-8 ####[facility] [id number] [place] [address] [place] MCH (RBC) [Entitic mass] 37.9 pg High 26.0-34.0 [facility] Comment on above: Order Comment: Speci men Type: BLOOD SPECIMENOrdering Facility: [facility] Address: [address] [place] [address] Performed By: #### 5 7021-8 ####[facility] [id number] [place] [address] [place] MCHC (RBC) [Mass/Vol] 33.2 g/dL Normal 30.5-36.0 [facility] Comment on above: Order Comment: Speci men Type: BLOOD SPECIMENOrdering Facility: [facility] Address: [address] [place] [address] Performed By: #### 5 7021-8 ####[facility] SYSTEMNCLIA [id number] [place] [address] [place] MCV (RBC) [Entitic vol] 114.2 fL High 80.0-100.0 [facility] Comment on above: Order Comment: Speci men Type: BLOOD SPECIMENOrdering Facility: [facility] Address: [address] [place] [address] Performed By: #### 5 7021-8 ####[facility] [id number] [place] [address] [place] Monocytes (Bld) [#/Vol] 0.79 10*3/uL Normal <0.87 [facility] Comment on above: Order Comment: Speci men Type: BLOOD SPECIMENOrdering Facility: [facility] Address: [address] [place] [address] Performed By: #### 5 7021-8 ####[facility] MILLWNCLIA [id number] [place] [address] [place] Monocytes/100 WBC (Bld) 12.2 % Normal [facility] Comment on above: Order Comment: Speci men Type: BLOOD SPECIMENOrdering Facility: [facility] Address: [address] [place] [address] Performed By: #### 5 7021-8 ####[facility] SYSTEMNCLIA [id number] [place] [address] [place] Neutrophils (Bld) [#/Vol] 4.48 10*3/uL Normal 1.45-7.50 [facility] Comment on above: Order Comment: Speci men Type: BLOOD SPECIMENOrdering Facility: [facility] Address: [address] [place] [address] Performed By: #### 5 7021-8 ####[facility] SYSTEMNCLIA [id number] [place] [address] [place] Neutrophils/100 WBC (Bld) 68.9 % Normal [facility] Comment on above: Order Comment: Speci men Type: BLOOD SPECIMENOrdering Facility: [facility] Address: [address] [place] [address] Performed By: #### 5 7021-8 ####[facility] MILLWNCLIA [id number] [place] [address] [place] Nucleated RBC (Bld) [#/Vol] 0.05 10*3/uL High <0.01 [facility] Comment on above: Order Comment: Speci men Type: BLOOD SPECIMENOrdering Facility: [facility] Address: [address] [place] [address] Performed By: #### 5 7021-8 ####[facility] [id number] [place] [address] [place] Nucleated RBC/100 WBC (Bld) [Ratio] 0.8 /100 WBC Normal [facility] Comment on above: Order Comment: Speci men Type: BLOOD SPECIMENOrdering Facility: [facility] Address: [address] [place] [address] Performed By: #### 5 7021-8 ####[facility] [id number] [place] [address] [place] Platelet mean volume (Bld) [Entitic vol] 10.2 fL Normal 9.0-12.7 [facility] Comment on above: Order Comment: Speci men Type: BLOOD SPECIMENOrdering Facility: [facility] Address: [address] [place] [address] Performed By: #### 5 7021-8 ####[facility] [id number] [place] [address] [place] Platelets (Bld) [#/Vol] 254 10*3/uL Normal 150-400 [facility] Comment on above: Order Comment: Speci men Type: BLOOD SPECIMENOrdering Facility: [facility] Address: [address] [place] [address] Performed By: #### 5 7021-8 ####[facility] SYSTEMKOSTAA [id number] [place] [address] [place] RBC (Bld) [#/Vol] 2.32 10*6/uL Low 4.20-6.00 [facility] Comment on above: Order Comment: Speci men Type: BLOOD SPECIMENOrdering Facility: [facility] Address: [address] [place] [address] Performed By: #### 5 7021-8 ####[facility] SYSTEMNCLI [id number] [place] [address] [place] WBC (Bld) [#/Vol] 6.50 10*3/uL Normal 3.70-11.00 [facility] Comment on above: Order Comment: Speci men Type: BLOOD SPECIMENOrdering Facility: [facility] Address: [address] [place] [address] Performed By: #### 5 7021-8 ####[facility] SYSTEMROBERTLIA [id number] [place] [address] [place] CNPNon 11-16-2024 CNPN Normal [facility] CBC W Auto Differential pane l (Bld)on 11-15-2024 Basophils (Bld) [#/Vol] 0.05 10*3/uL Normal <0.11 [facility] Comment on above: Order Comment: Speci men Type: BLOOD SPECIMENOrdering Facility: [facility] Address: [address] [place] [address] Performed By: #### 5 7021-8 ####[facility] [id number] [place] [address] [place] Basophils/100 WBC (Bld) 1.0 % Normal [facility] Comment on above: Order Comment: Speci men Type: BLOOD SPECIMENOrdering Facility: [facility] Address: [address] [place] [address] Performed By: #### 5 7021-8 ####[facility] SYSTEMROBERTA [id number] [place] [address] [place] Differential cell count method Nom (Bld) Auto Normal [facility] Comment on above: Order Comment: Speci men Type: BLOOD SPECIMENOrdering Facility: [facility] Address: [address] [place] [address] Performed By: #### 5 7021-8 ####[facility] DAYTONLIA [id number] [place] [address] [place] Eosinophils (Bld) [#/Vol] 0.10 10*3/uL Normal <0.46 [facility] Comment on above: Order Comment: Speci men Type: BLOOD SPECIMENOrdering Facility: [facility] Address: [address] [place] [address] Performed By: #### 5 7021-8 ####[facility] [id number] [place] [address] [place] Eosinophils/100 WBC (Bld) 2.0 % Normal [facility] Comment on above: Order Comment: Speci men Type: BLOOD SPECIMENOrdering Facility: [facility] Address: [address] [place] [address] Performed By: #### 5 7021-8 ####[facility] [id number] [place] [address] [place] Erythrocyte distribution width (RBC) [Ratio] 19.6 % High 11.5-15.0 [facility] Comment on above: Order Comment: Speci men Type: BLOOD SPECIMENOrdering Facility: [facility] Address: [address] [place] [address] Performed By: #### 5 7021-8 ####[facility] [id number] [place] [address] [place] Hematocrit (Bld) [Volume fraction] 27.2 % Low 39.0-51.0 [facility] Comment on above: Order Comment: Speci men Type: BLOOD SPECIMENOrdering Facility: [facility] Address: [address] [place] [address] Performed By: #### 5 7021-8 ####[facility] SYSTEMNCLIA [id number] [place] [address] [place] Hemoglobin (Bld) [Mass/Vol] 9.1 g/dL Low 13.0-17.0 [facility] Comment on above: Order Comment: Speci men Type: BLOOD SPECIMENOrdering Facility: [facility] Address: [address] [place] [address] Performed By: #### 5 7021-8 ####[facility] MILLTOWNCLIA [id number] [place] [address] [place] Immature granulocytes (Bld) [#/Vol] 10*3/uL Normal <0.10 [facility] Comment on above: Order Comment: Speci men Type: BLOOD SPECIMENOrdering Facility: [facility] Address: [address] [place] [address] Performed By: #### 5 7021-8 ####[facility] MILLWNCLIA [id number] [place] [address] [place] Immature granulocytes/100 WBC (Bld) 0.2 % Normal [facility] Comment on above: Order Comment: Speci men Type: BLOOD SPECIMENOrdering Facility: [facility] Address: [address] [place] [address] Performed By: #### 5 7021-8 ####[facility] DAYTONLIA [id number] [place] [address] [place] Lymphocytes (Bld) [#/Vol] 1.15 10*3/uL Normal 1.00-4.00 [facility] Comment on above: Order Comment: Speci men Type: BLOOD SPECIMENOrdering Facility: [facility] Address: [address] [place] [address] Performed By: #### 5 7021-8 ####[facility] MILLTOWNCLIA [id number] [place] [address] [place] Lymphocytes/100 WBC (Bld) 22.7 % Normal [facility] Comment on above: Order Comment: Speci men Type: BLOOD SPECIMENOrdering Facility: [facility] Address: [address] [place] [address] Performed By: #### 5 7021-8 ####[facility] SYSTEMNCLIA [id number] [place] [address] [place] MCH (RBC) [Entitic mass] 37.9 pg High 26.0-34.0 [facility] Comment on above: Order Comment: Speci men Type: BLOOD SPECIMENOrdering Facility: [facility] Address: [address] [place] [address] Performed By: #### 5 7021-8 ####[facility] SYSTEMMALENA [id number] [place] [address] [place] MCHC (RBC) [Mass/Vol] 33.5 g/dL Normal 30.5-36.0 [facility] Comment on above: Order Comment: Speci men Type: BLOOD SPECIMENOrdering Facility: [facility] Address: [address] [place] [address] Performed By: #### 5 7021-8 ####[facility] SYSTEMROBERTManuel [id number] [place] [address] [place] MCV (RBC) [Entitic vol] 113.3 fL High 80.0-100.0 [facility] Comment on above: Order Comment: Speci men Type: BLOOD SPECIMENOrdering Facility: [facility] Address: [address] [place] [address] Performed By: #### 5 7021-8 ####[facility] SYSTEMMALENA [id number] [place] [address] [place] Monocytes (Bld) [#/Vol] 0.70 10*3/uL Normal <0.87 [facility] Comment on above: Order Comment: Speci men Type: BLOOD SPECIMENOrdering Facility: [facility] Address: [address] [place] [address] Performed By: #### 5 7021-8 ####[facility] SYSTEMNCLIA [id number] [place] [address] [place] Monocytes/100 WBC (Bld) 13.8 % Normal [facility] Comment on above: Order Comment: Speci men Type: BLOOD SPECIMENOrdering Facility: [facility] Address: [address] [place] [address] Performed By: #### 5 7021-8 ####[facility] [id number] [place] [address] [place] Neutrophils (Bld) [#/Vol] 3.05 10*3/uL Normal 1.45-7.50 [facility] Comment on above: Order Comment: Speci men Type: BLOOD SPECIMENOrdering Facility: [facility] Address: [address] [place] [address] Performed By: #### 5 7021-8 ####[facility] [id number] [place] [address] [place] Neutrophils/100 WBC (Bld) 60.3 % Normal [facility] Comment on above: Order Comment: Speci men Type: BLOOD SPECIMENOrdering Facility: [facility] Address: [address] [place] [address] Performed By: #### 5 7021-8 ####[facility] [id number] [place] [address] [place] Nucleated RBC (Bld) [#/Vol] 0.03 10*3/uL High <0.01 [facility] Comment on above: Order Comment: Speci men Type: BLOOD SPECIMENOrdering Facility: [facility] Address: [address] [place] [address] Performed By: #### 5 7021-8 ####[facility] SYSTEMNCA [id number] [place] [address] [place] Nucleated RBC/100 WBC (Bld) [Ratio] 0.6 /100 WBC Normal [facility] Comment on above: Order Comment: Speci men Type: BLOOD SPECIMENOrdering Facility: [facility] Address: [address] [place] [address] Performed By: #### 5 7021-8 ####[facility] MEENAKSHIWNCLIA [id number] [place] [address] [place] Platelet mean volume (Bld) [Entitic vol] 11.2 fL Normal 9.0-12.7 [facility] Comment on above: Order Comment: Speci men Type: BLOOD SPECIMENOrdering Facility: [facility] Address: [address] [place] [address] Performed By: #### 5 7021-8 ####[facility] SYSTEMNCLIA [id number] [place] [address] [place] Platelets (Bld) [#/Vol] 283 10*3/uL Normal 150-400 [facility] Comment on above: Order Comment: Speci men Type: BLOOD SPECIMENOrdering Facility: [facility] Address: [address] [place], [place] [address] Performed By: #### 5 7021-8 ####[facility] SYSTEMNCLIA [id number] [place] [address] [place] RBC (Bld) [#/Vol] 2.40 10*6/uL Low 4.20-6.00 [facility] Comment on above: Order Comment: Speci men Type: BLOOD SPECIMENOrdering Facility: [facility] Address: [address] [place] [address] Performed By: #### 5 7021-8 ####[facility]ENTERWNCLIA [id number] [place] [address] [place] WBC (Bld) [#/Vol] 5.06 10*3/uL Normal 3.70-11.00 [facility] Comment on above: Order Comment: Speci men Type: BLOOD SPECIMENOrdering Facility: [facility] Address: [address] [place] [address] Performed By: #### 5 7021-8 ####[facility] SYSTEMNCLIA [id number] [place] [address] [place] EPO SerPl-aCncon 11-15-2024 Erythropoietin (EPO) Qn 78.6 mIU/mL High 2.6-18.5 [facility] Comment on above: Order Comment: Speci men Type: BLOOD SPECIMENOrdering Facility: [facility] Address: [address] [place] [address] Performed By: #### 1 5061-5 ####[facility] LABCLIA [id number] [facility]ICSD[facility] [id number] V[place] [id number] [place] Parmjit 10-14-2024 [facility] -- SRINI LUIS ([id number]) 1935 M Date Time Provider Department 10/13/24 IRAM JOHNSON [facility] During your visit today, we recorded the following information about you: Iram Johnson, [employer] 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 Normal [facility] Stress Reporton 10-12-2024 Stress Report [facility] [address] [place] [address] MR#: [id number] Acct: [id number] Name: SRINI LUIS Rep #: [id number] : 1935 88 From: Cristobal Villafuerte MD Primary Care: Care Physician,No Primary Status: REG CLI Referring Dr: Iram Johnson CLINICAL RESEARCH PHYSICIAN-C Sex: M C Stress Test Report Date: [...] is 43%. This note was generated with [employer] dictation software. It may contain incorrect words, spelling, and punctuation that were not noted in checking the note before signing. 10/12/24 1213 Date Cristobal Villafuerte MD CC: ZEE Johnson; No Primary Care Physician Date Dictated: 10/12/24 1201 Date Transcribed: 10/12/24 120 Talcer: NN Signed Normal [facility] CBC W Auto Differential pane l (Bld)on 10-11-2024 Basophils (Bld) [#/Vol] 0.06 10*3/uL Normal <0.11 [facility] Comment on above: Order Comment: Speci men Type: BLOOD SPECIMENOrdering Facility: [facility] Address: [address] [place] [address] Performed By: #### 5 7021-8 ####[facility] MILLWNCLIA [id number] [place] [address] [place] Basophils/100 WBC (Bld) 1.0 % Normal [facility] Comment on above: Order Comment: Speci men Type: BLOOD SPECIMENOrdering Facility: [facility] Address: [address] [place] [address] Performed By: #### 5 7021-8 ####[facility] DAYTONLIA [id number] [place] [address] [place] Differential cell count method Nom (Bld) Auto Normal [facility] Comment on above: Order Comment: Speci men Type: BLOOD SPECIMENOrdering Facility: [facility] Address: [address] [place] [address] Performed By: #### 5 7021-8 ####[facility] DAYTONLIA [id number] [place] [address] [place] Eosinophils (Bld) [#/Vol] 0.12 10*3/uL Normal <0.46 [facility] Comment on above: Order Comment: Speci men Type: BLOOD SPECIMENOrdering Facility: [facility] Address: [address] [place] [address] Performed By: #### 5 7021-8 ####[facility] DAYTONLIA [id number] [place] [address] [place] Eosinophils/100 WBC (Bld) 2.1 % Normal [facility] Comment on above: Order Comment: Speci men Type: BLOOD SPECIMENOrdering Facility: [facility] Address: [address] [place] [address] Performed By: #### 5 7021-8 ####[facility] SYSTEMNCLIA [id number] [place] [address] [place] Erythrocyte distribution width (RBC) [Ratio] 19.7 % High 11.5-15.0 [facility] Comment on above: Order Comment: Speci men Type: BLOOD SPECIMENOrdering Facility: [facility] Address: [address] [place] [address] Performed By: #### 5 7021-8 ####[facility] [id number] [place] [address] [place] Hematocrit (Bld) [Volume fraction] 27.9 % Low 39.0-51.0 [facility] Comment on above: Order Comment: Speci men Type: BLOOD SPECIMENOrdering Facility: [facility] Address: [address] [place] [address] Performed By: #### 5 7021-8 ####[facility] [id number] [place] [address] [place] Hemoglobin (Bld) [Mass/Vol] 9.2 g/dL Low 13.0-17.0 [facility] Comment on above: Order Comment: Speci men Type: BLOOD SPECIMENOrdering Facility: [facility] Address: [address] [place] [address] Performed By: #### 5 7021-8 ####[facility] [id number] [place] [address] [place] Immature granulocytes (Bld) [#/Vol] 10*3/uL Normal <0.10 [facility] Comment on above: Order Comment: Speci men Type: BLOOD SPECIMENOrdering Facility: [facility] Address: [address] [place] [address] Performed By: #### 5 7021-8 ####[facility] [id number] [place] [address] [place] Immature granulocytes/100 WBC (Bld) 0.2 % Normal [facility] Comment on above: Order Comment: Speci men Type: BLOOD SPECIMENOrdering Facility: [facility] Address: [address] [place] [address] Performed By: #### 5 7021-8 ####[facility] JONHJULIOA [id number] [place] [address] [place] Lymphocytes (Bld) [#/Vol] 1.08 10*3/uL Normal 1.00-4.00 [facility] Comment on above: Order Comment: Speci men Type: BLOOD SPECIMENOrdering Facility: [facility] Address: [address] [place] [address] Performed By: #### 5 7021-8 ####[facility] [id number] [place] [address] [place] Lymphocytes/100 WBC (Bld) 18.5 % Normal [facility] Comment on above: Order Comment: Speci men Type: BLOOD SPECIMENOrdering Facility: [facility] Address: [address] [place] [address] Performed By: #### 5 7021-8 ####[facility] SYSTEMROBERTRADHA [id number] [place] [address] [place] MCH (RBC) [Entitic mass] 37.6 pg High 26.0-34.0 [facility] Comment on above: Order Comment: Speci men Type: BLOOD SPECIMENOrdering Facility: [facility] Address: [address] [place] [address] Performed By: #### 5 7021-8 ####[facility] DAYTONLIA [id number] [place] [address] [place] MCHC (RBC) [Mass/Vol] 33.0 g/dL Normal 30.5-36.0 [facility] Comment on above: Order Comment: Speci men Type: BLOOD SPECIMENOrdering Facility: [facility] Address: [address] [place] [address] Performed By: #### 5 7021-8 ####[facility] JONHSAINT JOHN'S HEALTH SYSTEMLIA [id number] [place] [address] [place] MCV (RBC) [Entitic vol] 113.9 fL High 80.0-100.0 [facility] Comment on above: Order Comment: Speci men Type: BLOOD SPECIMENOrdering Facility: [facility] Address: [address] [place] [address] Performed By: #### 5 7021-8 ####[facility] [id number] [place] [address] [place] Monocytes (Bld) [#/Vol] 0.84 10*3/uL Normal <0.87 [facility] Comment on above: Order Comment: Speci men Type: BLOOD SPECIMENOrdering Facility: [facility] Address: [address] [place] [address] Performed By: #### 5 7021-8 ####[facility] [id number] [place] [address] [place] Monocytes/100 WBC (Bld) 14.4 % Normal [facility] Comment on above: Order Comment: Speci men Type: BLOOD SPECIMENOrdering Facility: [facility] Address: [address] [place] [address] Performed By: #### 5 7021-8 ####[facility] [id number] [place] [address] [place] Neutrophils (Bld) [#/Vol] 3.74 10*3/uL Normal 1.45-7.50 [facility] Comment on above: Order Comment: Speci men Type: BLOOD SPECIMENOrdering Facility: [facility] Address: [address] [place] [address] Performed By: #### 5 7021-8 ####[facility] DAYTONLIA [id number] [place] [address] [place] Neutrophils/100 WBC (Bld) 63.8 % Normal [facility] Comment on above: Order Comment: Speci men Type: BLOOD SPECIMENOrdering Facility: [facility] Address: [address] [place] [address] Performed By: #### 5 7021-8 ####[facility] [id number] [place] [address] [place] Nucleated RBC (Bld) [#/Vol] 0.03 10*3/uL High <0.01 [facility] Comment on above: Order Comment: Speci men Type: BLOOD SPECIMENOrdering Facility: [facility] Address: [address] [place] [address] Performed By: #### 5 7021-8 ####[facility] [id number] [place] [address] [place] Nucleated RBC/100 WBC (Bld) [Ratio] 0.5 /100 WBC Normal [facility] Comment on above: Order Comment: Speci men Type: BLOOD SPECIMENOrdering Facility: [facility] Address: [address] [place] [address] Performed By: #### 5 7021-8 ####[facility] [id number] [place] [address] [place] Platelet mean volume (Bld) [Entitic vol] 11.1 fL Normal 9.0-12.7 [facility] Comment on above: Order Comment: Speci men Type: BLOOD SPECIMENOrdering Facility: [facility] Address: [address] [place] [address] Performed By: #### 5 7021-8 ####[facility] [id number] [place] [address] [place] Platelets (Bld) [#/Vol] 259 10*3/uL Normal 150-400 [facility] Comment on above: Order Comment: Speci men Type: BLOOD SPECIMENOrdering Facility: [facility] Address: [address] [place] [address] Performed By: #### 5 7021-8 ####[facility] JONHEMMETNCLIA [id number] [place] [address] [place] RBC (Bld) [#/Vol] 2.45 10*6/uL Low 4.20-6.00 [facility] Comment on above: Order Comment: Speci men Type: BLOOD SPECIMENOrdering Facility: [facility] Address: [address] [place] [address] Performed By: #### 5 7021-8 ####[facility] JONHEMMETNCLIA [id number] [place] [address] [place] WBC (Bld) [#/Vol] 5.85 10*3/uL Normal 3.70-11.00 [facility] Comment on above: Order Comment: Speci men Type: BLOOD SPECIMENOrdering Facility: [facility] Address: [address] [place] [address] Performed By: #### 5 7021-8 ####[facility] SYSTEMNCLIA [id number] [place] [address] [place] CNOVSPon 10-11-2024 CNOVSP [facility] CNPNon 10-10-2024 CNPN Normal [facility] CNPTOUTREACHon 10-03-2024 CNPTOUTREACH [facility] CNOVon 09-27-2024 CNOV Office Visit ([facility] ) -- SRINI LUIS ([id number]) 1935 M Date Time Provider Department 09/27/24 11:00 AM IRAM JOHNSON [facility] [employer] During your visit today, we recorded the following information about you: Pulse Blood pressure Weight Height 62/minute 116/58 78 kg 1.702 m Iram Johnson APRN.PHOTO MASK PATTERN GENERATOR 09/27/2024 11:13 AM Signed [facility] CARDIOLOG[facility] Ronaldo Pleitez MD SUBJECTIVE: Srini [...] disorder 08/25/2022 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 ([facility]) 08/22/2022 Pontine infarction, R>L B12 deficiency 07/11/2020 Benign hypertension 08/14/2021 CAD (coronary artery disease) CHB (complete heart block) ([facility]) 09/17/2022 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; Confirmed Blk below His by His Bundle Electrogram Chronic atrial fibrillation ([facility]) Chronic heart failure with preserved ejection fraction ([facility]) 07/29/2024 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 [...] RIGHT OP SURGERY Right 12/18/2020 Dr Arreola [facility] ARTHROPLASTY TOTAL SHOULDER 11/09/2008 right ARTHROSCOPY OF JOINT UNLISTED 1999 Elbow right CABG (4) VEIN GRAFTS AND ARTERIAL GRAFT(S) 07/21/2021 In [facility] COLONOSCOPY FLX DX W/COLLJ SPEC WHEN [...] daily. polye (more content not included)... Normal [facility] CN Office Visit ([facility] ) -- SRINI LUIS ([id number]) 1935 M Date Time Provider Department 09/27/24 10:30 AM [facility] During your visit today, we recorded the following information about you: Israel Minor MD 10/06/2024 5:16 PM Signed Dual Pacer Report In Office Check Date: September 27, 2024 Time: 10:32 AM Devices: Implants Lead Ra Lead FantrotterroniChomp-09/17/2022 - Implanted Heart Model/Cat number: ADAIR S [id number] Serial number: [id number] 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 Media Lot number: LEFT AXILLARY VEIN Size: Right Atrial Pacing Lead Rv Lead BiotroniChomp-09/17/2022 - Implanted Heart Model/Cat number: ADAIR S [id number] Serial number: [id number] 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 Media Lot number: LEFT CEPHALIC VEIN Size: Right Ventricular Pacing Lead Pacemaker Dual Pacer Biotronik-09/17/2022 - Implanted (Left) Chest Wall Model/Cat number: CHELIORA 8 [id number]-T [id number] Serial number: [id number] 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 Media Lot number: INITIAL DUAL PACER IMPLANT. Size: [...] and provider appointment. View External Cardiology - General Operations Manager Strips [ID [id number]] Allergies As of Date: 09/27/2024 Noted Allergy [...] DAUGHTER Ten Weber, [facility] Problem List As Of Date 09/27/2024 Noted [...] Insomnia [G47.00] 08/13/2010 (more content not included)... [facility] Parmjit [facility] -- SRINI LUIS ([id number]) 1935 M Date Time Provider Department 09/27/24 IRAM JOHNSON [facility] During your visit today, we recorded the following information about you: Shilpa Abraham MA 09/27/2024 4:03 PM Signed Ref #[id number] Patient needs a Peer to Peer for his Stress Test. The number is [phone]. Iram Johnson, MARTIN.PHOTO MASK PATTERN GENERATOR 09/30/2024 8:24 AM Signed Apparently the patient does not need a peer to peer, the reference number is the approval number for the stress test. It is good from 09-27-2024-12/25/2024. Shilpa Abraham MA 09/30/2024 2:52 PM Addendum Spoke with Zaria at [facility]. Patients Stress Test is scheduled for 6:[address] [facility] on 10/12/24. Spoke with patients daughter Liza and [facility]. Both parties are aware of the date, time and instructions. Order was faxed ([phone]) to [facility]. 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 Normal [facility] CBC W Auto Differential pane l (Bld)on 09-22-2024 Basophils (Bld) [#/Vol] 0.05 10*3/uL Normal <0.11 [facility] Comment on above: Order Comment: Speci men Type: BLOOD SPECIMENOrdering Facility: [facility] Address: [address] [place] [address] Performed By: #### 5 7021-8 ####[facility] [id number] [place] [address] [place] Basophils/100 WBC (Bld) 0.9 % Normal [facility] Comment on above: Order Comment: Elfego gilbert Type: BLOOD SPECIMENOrdering Facility: [facility] Address: [address] [place] [address] Performed By: #### 5 7021-8 ####[facility] [id number] [place] [address] [place] Differential cell count method Nom (Bld) Auto Normal [facility] Comment on above: Order Comment: Speci men Type: BLOOD SPECIMENOrdering Facility: [facility] Address: [address] [place] [address] Performed By: #### 5 7021-8 ####[facility] [id number] [place] [address] [place] Eosinophils (Bld) [#/Vol] 0.14 10*3/uL Normal <0.46 [facility] Comment on above: Order Comment: Speci men Type: BLOOD SPECIMENOrdering Facility: [facility] Address: [address] [place] [address] Performed By: #### 5 7021-8 ####[facility] [id number] [place] [address] [place] Eosinophils/100 WBC (Bld) 2.6 % Normal [facility] Comment on above: Order Comment: Speci men Type: BLOOD SPECIMENOrdering Facility: [facility] Address: [address] [place] [address] Performed By: #### 5 7021-8 ####[facility] [id number] [place] [address] [place] Erythrocyte distribution width (RBC) [Ratio] 19.1 % High 11.5-15.0 [facility] Comment on above: Order Comment: Speci men Type: BLOOD SPECIMENOrdering Facility: [facility] Address: [address] [place] [address] Performed By: #### 5 7021-8 ####[facility] [id number] [place] [address] [place] Hematocrit (Bld) [Volume fraction] 26.3 % Low 39.0-51.0 [facility] Comment on above: Order Comment: Speci men Type: BLOOD SPECIMENOrdering Facility: [facility] Address: [address] [place] [address] Performed By: #### 5 7021-8 ####[facility] [id number] [place] [address] [place] Hemoglobin (Bld) [Mass/Vol] 8.7 g/dL Low 13.0-17.0 [facility] Comment on above: Order Comment: Speci men Type: BLOOD SPECIMENOrdering Facility: [facility] Address: [address] [place] [address] Performed By: #### 5 7021-8 ####[facility] MILLTOWNCLIA [id number] [place] [address] [place] Immature granulocytes (Bld) [#/Vol] 10*3/uL Normal <0.10 [facility] Comment on above: Order Comment: Speci men Type: BLOOD SPECIMENOrdering Facility: [facility] Address: [address] [place] [address] Performed By: #### 5 7021-8 ####[facility]ENTERWNCLIA [id number] [place] [address] [place] Immature granulocytes/100 WBC (Bld) 0.4 % Normal [facility] Comment on above: Order Comment: Speci men Type: BLOOD SPECIMENOrdering Facility: [facility] Address: [address] [place] [address] Performed By: #### 5 7021-8 ####[facility] SYSTEMNCLIA [id number] [place] [address] [place] Lymphocytes (Bld) [#/Vol] 1.15 10*3/uL Normal 1.00-4.00 [facility] Comment on above: Order Comment: Speci men Type: BLOOD SPECIMENOrdering Facility: [facility] Address: [address] [place] [address] Performed By: #### 5 7021-8 ####[facility] MILLTOWNCLIA [id number] [place] [address] [place] Lymphocytes/100 WBC (Bld) 21.0 % Normal [facility] Comment on above: Order Comment: Speci men Type: BLOOD SPECIMENOrdering Facility: [facility] Address: [address] [place] [address] Performed By: #### 5 7021-8 ####[facility] [id number] [place] [address] [place] MCH (RBC) [Entitic mass] 37.3 pg High 26.0-34.0 [facility] Comment on above: Order Comment: Speci men Type: BLOOD SPECIMENOrdering Facility: [facility] Address: [address] [place] [address] Performed By: #### 5 7021-8 ####[facility] [id number] [place] [address] [place] MCHC (RBC) [Mass/Vol] 33.1 g/dL Normal 30.5-36.0 [facility] Comment on above: Order Comment: Speci men Type: BLOOD SPECIMENOrdering Facility: [facility] Address: [address] [place] [address] Performed By: #### 5 7021-8 ####[facility] [id number] [place] [address] [place] MCV (RBC) [Entitic vol] 112.9 fL High 80.0-100.0 [facility] Comment on above: Order Comment: Speci men Type: BLOOD SPECIMENOrdering Facility: [facility] Address: [address] [place] [address] Performed By: #### 5 7021-8 ####[facility] [id number] [place] [address] [place] Monocytes (Bld) [#/Vol] 0.70 10*3/uL Normal <0.87 [facility] Comment on above: Order Comment: Speci men Type: BLOOD SPECIMENOrdering Facility: [facility] Address: [address] [place] [address] Performed By: #### 5 7021-8 ####[facility] [id number] [place] [address] [place] Monocytes/100 WBC (Bld) 12.8 % Normal [facility] Comment on above: Order Comment: Speci men Type: BLOOD SPECIMENOrdering Facility: [facility] Address: [address] [place] [address] Performed By: #### 5 7021-8 ####[facility] [id number] [place] [address] [place] Neutrophils (Bld) [#/Vol] 3.42 10*3/uL Normal 1.45-7.50 [facility] Comment on above: Order Comment: Speci men Type: BLOOD SPECIMENOrdering Facility: [facility] Address: [address] [place] [address] Performed By: #### 5 7021-8 ####[facility] [id number] [place] [address] [place] Neutrophils/100 WBC (Bld) 62.3 % Normal [facility] Comment on above: Order Comment: Speci men Type: BLOOD SPECIMENOrdering Facility: [facility] Address: [address] [place] [address] Performed By: #### 5 7021-8 ####[facility] [id number] [place] [address] [place] Nucleated RBC (Bld) [#/Vol] 0.05 10*3/uL High <0.01 [facility] Comment on above: Order Comment: Speci men Type: BLOOD SPECIMENOrdering Facility: [facility] Address: [address] [place] [address] Performed By: #### 5 7021-8 ####[facility] [id number] [place] [address] [place] Nucleated RBC/100 WBC (Bld) [Ratio] 0.9 /100 WBC Normal [facility] Comment on above: Order Comment: Speci men Type: BLOOD SPECIMENOrdering Facility: [facility] Address: [address] [place] [address] Performed By: #### 5 7021-8 ####[facility]ITALJACQUELYN MEMBRENO [id number] [place] [address] [place] Platelet mean volume (Bld) [Entitic vol] 11.9 fL Normal 9.0-12.7 [facility] Comment on above: Order Comment: Speci men Type: BLOOD SPECIMENOrdering Facility: [facility] Address: [address] [place] [address] Performed By: #### 5 7021-8 ####[facility] SYSTEMMALENA [id number] [place] [address] [place] Platelets (Bld) [#/Vol] 235 10*3/uL Normal 150-400 [facility] Comment on above: Order Comment: Speci men Type: BLOOD SPECIMENOrdering Facility: [facility] Address: [address] [place] [address] Performed By: #### 5 7021-8 ####[facility] SYSTEMMALENA [id number] [place] [address] [place] RBC (Bld) [#/Vol] 2.33 10*6/uL Low 4.20-6.00 [facility] Comment on above: Order Comment: Speci men Type: BLOOD SPECIMENOrdering Facility: [facility] Address: [address] [place] [address] Performed By: #### 5 7021-8 ####[facility] DAYTONLIA [id number] [place] [address] [place] WBC (Bld) [#/Vol] 5.48 10*3/uL Normal 3.70-11.00 [facility] Comment on above: Order Comment: Speci men Type: BLOOD SPECIMENOrdering Facility: [facility] Address: [address] [place] [address] Performed By: #### 5 7021-8 ####[facility] JONHWNCLIA [id number] [place] [address] [place] Vit B12 [facility] 11-14-2 024 Cobalamin (Vitamin B12) [Mass/Vol] 754 pg/mL Normal 232-1245 [facility] Comment on above: Order Comment: Speci men Type: BLOOD SPECIMENOrdering Facility: [facility] Address: [address] [place] [address] Performed By: #### 2 132-9 ####[facility] LABCLIA [id number] [place] [address] [place] CBC W Auto Differential pane l (Bld)on 09-15-2024 Basophils (Bld) [#/Vol] 0.05 10*3/uL Normal <0.11 [facility] Comment on above: Order Comment: Speci men Type: BLOOD SPECIMENOrdering Facility: [facility] Address: [address] [place] [address] Performed By: #### 5 7021-8 ####[facility] [id number] [place] [address] [place] Basophils/100 WBC (Bld) 0.9 % Normal [facility] Comment on above: Order Comment: Speci men Type: BLOOD SPECIMENOrdering Facility: [facility] Address: [address] [place] [address] Performed By: #### 5 7021-8 ####[facility] SYSTEMNCLIA [id number] [place] [address] [place] Differential cell count method Nom (Bld) Auto Normal [facility] Comment on above: Order Comment: Speci men Type: BLOOD SPECIMENOrdering Facility: [facility] Address: [address] [place] [address] Performed By: #### 5 7021-8 ####[facility] [id number] [place] [address] [place] Eosinophils (Bld) [#/Vol] 0.09 10*3/uL Normal <0.46 [facility] Comment on above: Order Comment: Speci men Type: BLOOD SPECIMENOrdering Facility: [facility] Address: [address] [place] [address] Performed By: #### 5 7021-8 ####[facility] [id number] [place] [address] [place] Eosinophils/100 WBC (Bld) 1.7 % Normal [facility] Comment on above: Order Comment: Speci men Type: BLOOD SPECIMENOrdering Facility: [facility] Address: [address] [place] [address] Performed By: #### 5 7021-8 ####[facility] SYSTEMROBERTManuel [id number] [place] [address] [place] Erythrocyte distribution width (RBC) [Ratio] 18.6 % High 11.5-15.0 [facility] Comment on above: Order Comment: Speci men Type: BLOOD SPECIMENOrdering Facility: [facility] Address: [address] [place] [address] Performed By: #### 5 7021-8 ####[facility] DAYTONLIManuel [id number] [place] [address] [place] Hematocrit (Bld) [Volume fraction] 25.6 % Low 39.0-51.0 [facility] Comment on above: Order Comment: Speci men Type: BLOOD SPECIMENOrdering Facility: [facility] Address: [address] [place] [address] Performed By: #### 5 7021-8 ####[facility] SYSTEMNCLI [id number] [place] [address] [place] Hemoglobin (Bld) [Mass/Vol] 8.5 g/dL Low 13.0-17.0 [facility] Comment on above: Order Comment: Speci men Type: BLOOD SPECIMENOrdering Facility: [facility] Address: [address] [place] [address] Performed By: #### 5 7021-8 ####[facility] [id number] [place] [address] [place] Immature granulocytes (Bld) [#/Vol] 0.03 10*3/uL Normal <0.10 [facility] Comment on above: Order Comment: Speci men Type: BLOOD SPECIMENOrdering Facility: [facility] Address: [address] [place] [address] Performed By: #### 5 7021-8 ####[facility] [id number] [place] [address] [place] Immature granulocytes/100 WBC (Bld) 0.6 % Normal [facility] Comment on above: Order Comment: Speci men Type: BLOOD SPECIMENOrdering Facility: [facility] Address: [address] [place] [address] Performed By: #### 5 7021-8 ####[facility] [id number] [place] [address] [place] Lymphocytes (Bld) [#/Vol] 1.11 10*3/uL Normal 1.00-4.00 [facility] Center Comment on above: Order Comment: Speci men Type: BLOOD SPECIMENOrdering Facility: [facility] Address: [address] [place] [address] Performed By: #### 5 7021-8 ####[facility] [id number] [place] [address] [place] Lymphocytes/100 WBC (Bld) 20.9 % Normal [facility] Comment on above: Order Comment: Speci men Type: BLOOD SPECIMENOrdering Facility: [facility] Address: [address] [place] [address] Performed By: #### 5 7021-8 ####[facility] MILLIVANAWNCLIA [id number] [place] [address] [place] MCH (RBC) [Entitic mass] 37.1 pg High 26.0-34.0 [facility] Comment on above: Order Comment: Speci men Type: BLOOD SPECIMENOrdering Facility: [facility] Address: [address] [place] [address] Performed By: #### 5 7021-8 ####[facility] SYSTEMNCLIA [id number] [place] [address] [place] MCHC (RBC) [Mass/Vol] 33.2 g/dL Normal 30.5-36.0 [facility] Comment on above: Order Comment: Speci men Type: BLOOD SPECIMENOrdering Facility: [facility] Address: [address] [place] [address] Performed By: #### 5 7021-8 ####[facility] SYSTEMNCLIA [id number] [place] [address] [place] MCV (RBC) [Entitic vol] 111.8 fL High 80.0-100.0 [facility] Comment on above: Order Comment: Speci men Type: BLOOD SPECIMENOrdering Facility: [facility] Address: [address] [place] [address] Performed By: #### 5 7021-8 ####[facility] SYSTEMNCLIA [id number] [place] [address] [place] Monocytes (Bld) [#/Vol] 0.68 10*3/uL Normal <0.87 [facility] Comment on above: Order Comment: Speci men Type: BLOOD SPECIMENOrdering Facility: [facility] Address: [address] [place] [address] Performed By: #### 5 7021-8 ####[facility] [id number] [place] [address] [place] Monocytes/100 WBC (Bld) 12.8 % Normal [facility] Comment on above: Order Comment: Speci men Type: BLOOD SPECIMENOrdering Facility: [facility] Address: [address] [place] [address] Performed By: #### 5 7021-8 ####[facility] [id number] [place] [address] [place] Neutrophils (Bld) [#/Vol] 3.36 10*3/uL Normal 1.45-7.50 [facility] Comment on above: Order Comment: Speci men Type: BLOOD SPECIMENOrdering Facility: [facility] Address: [address] [place] [address] Performed By: #### 5 7021-8 ####[facility] [id number] [place] [address] [place] Neutrophils/100 WBC (Bld) 63.1 % Normal [facility] Comment on above: Order Comment: Speci men Type: BLOOD SPECIMENOrdering Facility: [facility] Address: [address] [place] [address] Performed By: #### 5 7021-8 ####[facility] [id number] [place] [address] [place] Nucleated RBC (Bld) [#/Vol] 0.05 10*3/uL High <0.01 [facility] Comment on above: Order Comment: Speci men Type: BLOOD SPECIMENOrdering Facility: [facility] Address: [address] [place] [address] Performed By: #### 5 7021-8 ####[facility] [id number] [place] [address] [place] Nucleated RBC/100 WBC (Bld) [Ratio] 0.9 /100 WBC Normal [facility] Comment on above: Order Comment: Speci men Type: BLOOD SPECIMENOrdering Facility: [facility] Address: [address] [place] [address] Performed By: #### 5 7021-8 ####[facility] JONHWilliamsNCRADHA [id number] [place] [address] [place] Platelet mean volume (Bld) [Entitic vol] 10.9 fL Normal 9.0-12.7 [facility] Comment on above: Order Comment: Speci men Type: BLOOD SPECIMENOrdering Facility: [facility] Address: [address] [place] [address] Performed By: #### 5 7021-8 ####[facility] [id number] [place] [address] [place] Platelets (Bld) [#/Vol] 261 10*3/uL Normal 150-400 [facility] Comment on above: Order Comment: Speci men Type: BLOOD SPECIMENOrdering Facility: [facility] Address: [address] [place] [address] Performed By: #### 5 7021-8 ####[facility] SYSTEMNCLIA [id number] [place] [address] [place] RBC (Bld) [#/Vol] 2.29 10*6/uL Low 4.20-6.00 [facility] Comment on above: Order Comment: Speci men Type: BLOOD SPECIMENOrdering Facility: [facility] Address: [address] [place] [address] Performed By: #### 5 7021-8 ####[facility] SYSTEMNCLI [id number] [place] [address] [place] WBC (Bld) [#/Vol] 5.32 10*3/uL Normal 3.70-11.00 [facility] Comment on above: Order Comment: Speci men Type: BLOOD SPECIMENOrdering Facility: [facility] Address: [address] [place], [place] [address] Performed By: #### 5 7021-8 ####[facility] SYSTEMNCA [id number] [place] [address] [place] CNOVSPon 09-15-2024 CNOVSP Normal [facility] CNPNon 09-15-2024 CNPN Normal [facility] Comprehensive metabolic 2000 panelon 09-15-2024 Albumin [Mass/Vol] 4.1 g/dL Normal 3.9-4.9 [facility] Comment on above: Order Comment: Speci men Type: BLOOD SPECIMENOrdering Facility: [facility] Address: [address] [place] [address] Performed By: #### 2 4323-8 ####[facility] [id number] [place] [address] [place] ALP [Catalytic activity/Vol] 81 U/L Normal 38-113 [facility] Comment on above: Order Comment: Speci men Type: BLOOD SPECIMENOrdering Facility: [facility] Address: [address] [place] [address] Performed By: #### 2 4323-8 ####[facility] SYSTEMNCA [id number] [place] [address] [place] ALT [Catalytic activity/Vol] 14 U/L Normal 10-54 [facility] Comment on above: Order Comment: Speci men Type: BLOOD SPECIMENOrdering Facility: [facility] Address: [address] [place] [address] Performed By: #### 2 4323-8 ####[facility] SYSTEMNCA [id number] [place] [address] [place] Anion gap [Moles/Vol] 9 mmol/L Normal 8-15 [facility] Comment on above: Order Comment: Speci men Type: BLOOD SPECIMENOrdering Facility: [facility] Address: [address] [place], [place] [address] Performed By: #### 2 4323-8 ####[facility] MILLTOWNCLIA [id number] [place] [address] [place] AST [Catalytic activity/Vol] 23 U/L Normal 14-40 [facility] Comment on above: Order Comment: Speci men Type: BLOOD SPECIMENOrdering Facility: [facility] Address: [address] [place] [address] Performed By: #### 2 4323-8 ####[facility] MILLTOWNCLIA [id number] [place] [address] [place] Bilirubin [Mass/Vol] 1.5 mg/dL High 0.2-1.3 [facility] Comment on above: Order Comment: Speci men Type: BLOOD SPECIMENOrdering Facility: [facility] Address: [address] [place] [address] Performed By: #### 2 4323-8 ####[facility]ENTERWNCLIA [id number] [place] [address] [place] Calcium [Mass/Vol] 9.1 mg/dL Normal 8.5-10.2 [facility] Comment on above: Order Comment: Speci men Type: BLOOD SPECIMENOrdering Facility: [facility] Address: [address] [place] [address] Performed By: #### 2 4323-8 ####[facility] MILLTOWNCLIA [id number] [place] [address] [place] Chloride [Moles/Vol] 100 mmol/L Normal 98-107 [facility] Comment on above: Order Comment: Speci men Type: BLOOD SPECIMENOrdering Facility: [facility] Address: [address] [place] [address] Performed By: #### 2 4323-8 ####[facility] MILLTOWNCLIA [id number] [place] [address] [place] CO2 [Moles/Vol] 27 mmol/L Normal 22-30 [facility] Comment on above: Order Comment: Speci men Type: BLOOD SPECIMENOrdering Facility: [facility] Address: [address] [place] [address] Performed By: #### 2 4323-8 ####[facility] SYSTEMNCRADHA [id number] [place] [address] [place] Creatinine [Mass/Vol] 1.02 mg/dL Normal 0.73-1.22 [facility] Comment on above: Order Comment: Speci men Type: BLOOD SPECIMENOrdering Facility: [facility] Address: [address] [place] [address] Performed By: #### 2 4323-8 ####[facility] SYSTEMNCLIA [id number] [place] [address] [place] Creatinine and Glomerular filtration rate.predicted panel (S/P/Bld) 71 mL/min/1.73m??? Normal >=60 [facility] Comment on above: Order Comment: Speci men Type: BLOOD SPECIMENOrdering Facility: [facility] Address: [address] [place] [address] Result Comment: Concepción mated Glomerular Filtration Rate [...] actual GFR. Performed By: #### 2 4323-8 ####[facility]ENTERWNCLIA [id number] [place] [address] [place] Glucose [Mass/Vol] 94 mg/dL Normal 74-99 [facility] Comment on above: Order Comment: Speci men Type: BLOOD SPECIMENOrdering Facility: [facility] Address: [address] [place] [address] Result Comment: The [place] Diabetes Association (ADA) provides guidance for cutoff [...] Standards of Medical Care in Diabetes 2016, [place] Diabetes Association. Diabetes Care. 2016.39(Suppl 1). Performed By: #### 2 4323-8 ####[facility] [id number] [place] [address] [place] Potassium [Moles/Vol] 4.4 mmol/L Normal 3.7-5.1 [facility] Comment on above: Order Comment: Speci men Type: BLOOD SPECIMENOrdering Facility: [facility] Address: [address] [place] [address] Performed By: #### 2 4323-8 ####[facility] [id number] [place] [address] [place] Protein [Mass/Vol] 6.4 g/dL Normal 6.3-8.0 [facility] Comment on above: Order Comment: Speci men Type: BLOOD SPECIMENOrdering Facility: [facility] Address: [address] [address] Performed By: #### 2 4323-8 ####[facility] [id number] [place] [address] [place] Sodium [Moles/Vol] 136 mmol/L Normal 136-144 [facility] Comment on above: Order Comment: Speci men Type: BLOOD SPECIMENOrdering Facility: [facility] Address: [address] [place] [address] Performed By: #### 2 4323-8 ####[facility] [id number] [address] [place] [facility] Urea nitrogen [Mass/Vol] 24 mg/dL Normal 9-24 [facility] Comment on above: Order Comment: Speci men Type: BLOOD SPECIMENOrdering Facility: [facility] Address: [address] [place] [address] Performed By: #### 2 4323-8 ####[facility] [id number] [place] [address] [place] Ferritin SerPl-ncon 2023 Ferritin [Mass/Vol] 453.0 ng/mL Normal 30.3-565.7 [facility] Comment on above: Order Comment: Speci men Type: BLOOD SPECIMENOrdering Facility: [facility] Address: [address] [place] [address] Performed By: #### 5 0190-8, 2275-4 ####[facility] LABCLIA [id number] [place] [address] [place]#### 60694-3 ####[facility] LABCLIA [id number] [place] [address] [place] [facility] [id number] [place] [address] [place] Iron and Iron binding capaci ty panelon 09-15-2024 Iron [Mass/Vol] 134 ug/dL Normal 41-186 [facility] Comment on above: Order Comment: Speci men Type: BLOOD SPECIMENOrdering Facility: [facility] Address: [address] [place] [address] Performed By: #### 5 0190-8, 6-4 ####[facility] LABCLIA [id number] [place] [address] [place]#### 16345-6 ####[facility] LABCLIA [id number] [address] [id number] [place] [address] [place] Iron binding capacity [Mass/Vol] 166 ug/dL Low 232-386 [facility] Comment on above: Order Comment: Speci men Type: BLOOD SPECIMENOrdering Facility: [facility] Address: [address] [place] [address] Performed By: #### 5 0190-8, 2275-4 ####[facility] LABCLIA [id number] [place] [address] [place]#### 90251-7 ####[facility] LABCLIA [id number] [id number] [place] [address] [place] Iron/TIBC [Molar ratio] 80.7 % High 15.0-57.0 [facility] Comment on above: Order Comment: Speci men Type: BLOOD SPECIMENOrdering Facility: [facility] Address: [address] [place] [address] Performed By: #### 5 0190-8, 2275- ####[facility] LABCLIA [id number] [place] [address] [place]#### 88335-8 ####[facility] LABCLIA [id number] [address] [id number] [place] [address] [place] Lipid 1996 panelon 4 Cholesterol [Mass/Vol] 86 mg/dL Normal <200 [facility] Comment on above: Order Comment: Speci men Type: BLOOD SPECIMENOrdering Facility: [facility] Address: [address] [place] [address] Result Comment: <200 mg/dL, Desirable 200-239 mg/dL, Borderline high>239 mg/dL, High Performed By: #### 5 0190-8, 2275- ####[facility] LABCLIA [id number] [place] [address] [place]#### 31386-5 ####[facility] LABCLIA [id number] [address] STATES OF [facility] [id number] [place] [address] [place] Cholesterol in HDL [Mass/Vol] 53 mg/dL Normal >39 [facility] Comment on above: Order Comment: Speci men Type: BLOOD SPECIMENOrdering Facility: [facility] Address: [address] [place] [address] Result Comment: 40-5 9 mg/dL, Acceptable>59 mg/dL, High: Negative risk factor for coronary heart disease<40 mg/dL, Low: Positive risk factor for coronary heart disease Performed By: #### 5 0190-8, 2275- ####[facility] LABCLIA [id number] [place] [address] [place]#### 05977-3 ####[facility] LABCLIA [id number] [id number] [place] [address] [place] Cholesterol in LDL [Mass/Vol] 26 mg/dL Normal <100 [facility] Comment on above: Order Comment: Speci men Type: BLOOD SPECIMENOrdering Facility: [facility] Address: [address] [place], [place] [address], [place] [address] Result Comment: <100 mg/dL, Optimal 100-129 mg/dL, Near optimal/above optimal 130-159 mg/dL, Borderline high 160-189 mg/dL, High>189 mg/dL, Very highSecondary prevention optimal LDL Cholesterol levels are recommended to be < 70 mg/dL Performed By: #### 5 0190-8, 2276-02 ####[facility] LABCLIA [id number] [place] [address] [place]#### 39600-8 ####[facility] LABCLIA [id number] [address] [id number] [place] [address] [place] Cholesterol in LDL/Cholesterol in HDL [Mass ratio] 0.49 {ratio} Normal <2.54 [facility] Comment on above: Order Comment: Speci men Type: BLOOD SPECIMENOrdering Facility: [facility] Address: [address] [place] [address] Result Comment: Katie barrientos:1. National Cholesterol Education Program ATP III Guideline At-A-Glance Quick Desk Reference: National Heart, Lung, and Blood [place]. National Institutes of Health. 2001: NIH Publication No. 01-3305.2. An International Atherosclerosis Society position paper: global recommendations for the management of dyslipidemia: executive summary, Atherosclerosis. 2014: 232(2):410-413. Performed By: #### 5 0190-8, 2276-02 ####[facility] LABCLIA [id number] [place] [address] [place]#### 29616-5 ####[facility] LABCLIA [id number] [address] [id number] [place] [address] [place] Cholesterol in VLDL [Mass/Vol] 7 mg/dL Normal <30 [facility] Comment on above: Order Comment: Speci men Type: BLOOD SPECIMENOrdering Facility: [facility] Address: [address] [place] [address] Performed By: #### 5 0190-8, 2275-4 ####[facility] LABCLIA [id number] [place] [address] [place]#### 26114-7 ####[facility] LABCLIA [id number] [address] STATES OF [facility] [id number] [address] [place] Cholesterol non HDL [Mass/Vol] 33 mg/dL Normal <130 [facility] Comment on above: Order Comment: Speci men Type: BLOOD SPECIMENOrdering Facility: [facility] Address: [address] [place] [address] Result Comment: <130 mg/dL, Optimal 130-159 mg/dL, Near optimal/above optimal 160-189 mg/dL, Borderline high 190-219 mg/dL, High>219 mg/dL, Very highSecondary prevention optimal non HDL Cholesterol levels are recommended to be <100 mg/dL Performed By: #### 5 0190-8, 2275- ####[facility] LABCLIA [id number] [address] [place]#### 21861-1 ####[facility] LABCLIA [id number] [address] STATES OF [facility] [id number] [address] [place] Cholesterol.total/Chol esterol in HDL [Mass ratio] 1.62 {ratio} Normal <5.10 [facility] Comment on above: Order Comment: Speci men Type: BLOOD SPECIMENOrdering Facility: [facility] Address: [address] [id number] Performed By: #### 5 0190-8, 2276-02 ####[facility] LABCLIA [id number] [place] [address] [place]#### 19238-1 ####[facility] LABCLIA [id number] [place] [address] [place] [facility] [id number] [place] [address] [place] FASTING TIME 12 hrs Normal [facility] Comment on above: Order Comment: Speci men Type: BLOOD SPECIMENOrdering Facility: [facility] Address: [address] [place], [place] [address] Performed By: #### 5 0190-8, 2276-02 ####[facility] LABCLIA [id number] [place] [address] [place]#### 83604-3 ####[facility] LABCLIA [id number] [place] [address] [place] [facility] [id number] [place] [address] [place] Triglyceride [Mass/Vol] 33 mg/dL Normal <150 [facility] Comment on above: Order Comment: Speci men Type: BLOOD SPECIMENOrdering Facility: [facility] Address: [facility] [address] Result Comment: <150 mg/dL, Normal 150-199 mg/dL, Borderline high 200-499 mg/dL, High>499 mg/dL, Very high Performed By: #### 5 0190-8, 2276-02 ####[facility] LABCLIA [id number] [place] [address] [place]#### 54448-9 ####[facility] LABCLIA [id number] [facility] [id number] [place], [place] [address] [place] [facility] [id number] [place] [address] [place] CNPTOUTREACHon 08-30-2024 CNPTOUTREACH Normal [facility] CNPNon 08-24-2024 CNPN Normal [facility] CBC W Auto Differential pane l (Bld)on 08-22-2024 Basophils (Bld) [#/Vol] 0.05 10*3/uL Normal <0.11 [facility] Comment on above: Order Comment: Speci men Type: BLOOD SPECIMENOrdering Facility: [facility] Address: [address] [place] [address] Performed By: #### 5 7021-8 ####[facility] [id number] [place] [address] [place] Basophils/100 WBC (Bld) 0.9 % Normal [facility] Comment on above: Order Comment: Speci men Type: BLOOD SPECIMENOrdering Facility: [facility] Address: [address] [place] [address] Performed By: #### 5 7021-8 ####[facility] [id number] [place] [address] [place] Differential cell count method Nom (Bld) Auto Normal [facility] Comment on above: Order Comment: Speci men Type: BLOOD SPECIMENOrdering Facility: [facility] Address: [address] [place] [address] Performed By: #### 5 7021-8 ####[facility] [id number] [place] [address] [place] Eosinophils (Bld) [#/Vol] 0.19 10*3/uL Normal <0.46 [facility] Comment on above: Order Comment: Speci men Type: BLOOD SPECIMENOrdering Facility: [facility] Address: [address] [place] [address] Performed By: #### 5 7021-8 ####[facility] MILLIVANAWNCLIA [id number] [place] [address] [place] Eosinophils/100 WBC (Bld) 3.3 % Normal [facility] Comment on above: Order Comment: Speci men Type: BLOOD SPECIMENOrdering Facility: [facility] Address: [address] [place] [address] Performed By: #### 5 7021-8 ####[facility] MILLWROBERTLIA [id number] [place] [address] [place] Erythrocyte distribution width (RBC) [Ratio] 17.2 % High 11.5-15.0 [facility] Comment on above: Order Comment: Speci men Type: BLOOD SPECIMENOrdering Facility: [facility] Address: [address] [place] [address] Performed By: #### 5 7021-8 ####[facility] SYSTEM[facility]CL[facility] [id number] [place] [address] [place] Hematocrit (Bld) [Volume fraction] 26.6 % Low 39.0-51.0 [facility] Comment on above: Order Comment: Speci men Type: BLOOD SPECIMENOrdering Facility: [facility] Address: [address] [place] [address] Performed By: #### 5 7021-8 ####[facility] JONHWNCLIA [id number] [place] [address] [place] Hemoglobin (Bld) [Mass/Vol] 9.0 g/dL Low 13.0-17.0 [facility] Comment on above: Order Comment: Speci men Type: BLOOD SPECIMENOrdering Facility: [facility] Address: [address] [place] [address] Performed By: #### 5 7021-8 ####[facility] SYSTEMROBERTLIA [id number] [place] [address] [place] Immature granulocytes (Bld) [#/Vol] 10*3/uL Normal <0.10 [facility] Comment on above: Order Comment: Speci men Type: BLOOD SPECIMENOrdering Facility: [facility] Address: [address] [place] [address] Performed By: #### 5 7021-8 ####[facility] [id number] [place] [address] [place] Immature granulocytes/100 WBC (Bld) 0.2 % Normal [facility] Comment on above: Order Comment: Speci men Type: BLOOD SPECIMENOrdering Facility: [facility] Address: [address] [place] [address] Performed By: #### 5 7021-8 ####[facility] [id number] [place] [address] [place] Lymphocytes (Bld) [#/Vol] 1.24 10*3/uL Normal 1.00-4.00 [facility] Comment on above: Order Comment: Speci men Type: BLOOD SPECIMENOrdering Facility: [facility] Address: [address] [place] [address] Performed By: #### 5 7021-8 ####[facility] [id number] [place] [address] [place] Lymphocytes/100 WBC (Bld) 21.8 % Normal [facility] Comment on above: Order Comment: Speci men Type: BLOOD SPECIMENOrdering Facility: [facility] Address: [address] [place] [address] Performed By: #### 5 7021-8 ####[facility] [id number] [place] [address] [place] MCH (RBC) [Entitic mass] 37.5 pg High 26.0-34.0 [facility] Comment on above: Order Comment: Speci men Type: BLOOD SPECIMENOrdering Facility: [facility] Address: [address] [place] [address] Performed By: #### 5 7021-8 ####[facility] [id number] [place] [address] [place] MCHC (RBC) [Mass/Vol] 33.8 g/dL Normal 30.5-36.0 [facility] Comment on above: Order Comment: Speci men Type: BLOOD SPECIMENOrdering Facility: [facility] Address: [address] [place] [address] Performed By: #### 5 7021-8 ####[facility] [id number] [place] [address] [place] MCV (RBC) [Entitic vol] 110.8 fL High 80.0-100.0 [facility] Comment on above: Order Comment: Speci men Type: BLOOD SPECIMENOrdering Facility: [facility] Address: [address] [place] [address] Performed By: #### 5 7021-8 ####[facility] SYSTEMNCA [id number] [place] [address] [place] Monocytes (Bld) [#/Vol] 0.79 10*3/uL Normal <0.87 [facility] Comment on above: Order Comment: Speci men Type: BLOOD SPECIMENOrdering Facility: [facility] Address: [address] [place] [address] Performed By: #### 5 7021-8 ####[facility] [id number] [place] [address] [place] Monocytes/100 WBC (Bld) 13.9 % Normal [facility] Comment on above: Order Comment: Speci men Type: BLOOD SPECIMENOrdering Facility: [facility] Address: [address] [place] [address] Performed By: #### 5 7021-8 ####[facility]ILLWNCL[facility] [id number] [place] [address] [place] Neutrophils (Bld) [#/Vol] 3.40 10*3/uL Normal 1.45-7.50 [facility] Comment on above: Order Comment: Speci men Type: BLOOD SPECIMENOrdering Facility: [facility] Address: [address] [place] [address] Performed By: #### 5 7021-8 ####[facility]ENTERWNCLIA [id number] [place] [address] [place] Neutrophils/100 WBC (Bld) 59.9 % Normal [facility] Comment on above: Order Comment: Speci men Type: BLOOD SPECIMENOrdering Facility: [facility] Address: [address] [place] [address] Performed By: #### 5 7021-8 ####[facility] [id number] [place] [address] [place] Nucleated RBC (Bld) [#/Vol] 0.03 10*3/uL High <0.01 [facility] Comment on above: Order Comment: Speci men Type: BLOOD SPECIMENOrdering Facility: [facility] Address: [address] [place] [address] Performed By: #### 5 7021-8 ####[facility] MILLWNCL[facility] [id number] [place] [address] [place] Nucleated RBC/100 WBC (Bld) [Ratio] 0.5 /100 WBC Normal [facility] Comment on above: Order Comment: Speci men Type: BLOOD SPECIMENOrdering Facility: [facility] Address: [address] [place] [address] Performed By: #### 5 7021-8 ####[facility] [id number] [place] [address] [place] Platelet mean volume (Bld) [Entitic vol] 10.8 fL Normal 9.0-12.7 [facility] Comment on above: Order Comment: Speci men Type: BLOOD SPECIMENOrdering Facility: [facility] Address: [address] [place] [address] Performed By: #### 5 7021-8 ####[facility] SYSTEMROBERTLIA [id number] [place] [address] [place] Platelets (Bld) [#/Vol] 255 10*3/uL Normal 150-400 [facility] Comment on above: Order Comment: Speci men Type: BLOOD SPECIMENOrdering Facility: [facility] Address: [address] [place] [address] Performed By: #### 5 7021-8 ####[facility] SYSTEM[facility]CLIA [id number] [place] [address] [place] RBC (Bld) [#/Vol] 2.40 10*6/uL Low 4.20-6.00 [facility] Comment on above: Order Comment: Speci men Type: BLOOD SPECIMENOrdering Facility: [facility] Address: [address] [place] [address] Performed By: #### 5 7021-8 ####[facility] SYSTEMNCLIA [id number] [place] [address] [place] WBC (Bld) [#/Vol] 5.68 10*3/uL Normal 3.70-11.00 [facility] Comment on above: Order Comment: Speci men Type: BLOOD SPECIMENOrdering Facility: [facility] Address: [address] [place] [address] Performed By: #### 5 7021-8 ####[facility] SYSTEMNCLIA [id number] [place] [address] [place] CNPTOUTREACHon 08-02-2024 CNPTOUTREACH Normal [facility] CNOVon 07-29-2024 CNOV Normal [facility] CNPNon 07-22-2024 CNPN Normal [facility] CBC W Auto Differential pane l (Bld)on 07-21-2024 Basophils (Bld) [#/Vol] 0.05 10*3/uL Normal <0.11 [facility] Comment on above: Order Comment: Speci men Type: BLOOD SPECIMENOrdering Facility: [facility] Address: [address] [place] [address] Performed By: #### 5 7021-8 ####[facility] MILLWNCLIA [id number] [place] [address] [place] Basophils/100 WBC (Bld) 1.0 % Normal [facility] Comment on above: Order Comment: Speci men Type: BLOOD SPECIMENOrdering Facility: [facility] Address: [address] [place] [address] Performed By: #### 5 7021-8 ####[facility]ENTERWNCLIA [id number] [place] [address] [place] Differential cell count method Nom (Bld) Auto Normal [facility] Comment on above: Order Comment: Speci men Type: BLOOD SPECIMENOrdering Facility: [facility] Address: [address] [place] [address] Performed By: #### 5 7021-8 ####[facility] MILLTOWNCLIA [id number] [place] [address] [place] Eosinophils (Bld) [#/Vol] 0.13 10*3/uL Normal <0.46 [facility] Comment on above: Order Comment: Speci men Type: BLOOD SPECIMENOrdering Facility: [facility] Address: [address] [place] [address] Performed By: #### 5 7021-8 ####[facility] MILLTOWNCLIA [id number] [place] [address] [place] Eosinophils/100 WBC (Bld) 2.6 % Normal [facility] Comment on above: Order Comment: Speci men Type: BLOOD SPECIMENOrdering Facility: [facility] Address: [address] [place] [address] Performed By: #### 5 7021-8 ####[facility]ROBERT[facility] [id number] [place] [address] [place] Erythrocyte distribution width (RBC) [Ratio] 16.0 % High 11.5-15.0 [facility] Comment on above: Order Comment: Speci men Type: BLOOD SPECIMENOrdering Facility: [facility] Address: [address] [place] [address] Performed By: #### 5 7021-8 ####[facility] SYSTEMROBERTManuel [id number] [place] [address] [place] Hematocrit (Bld) [Volume fraction] 26.2 % Low 39.0-51.0 [facility] Comment on above: Order Comment: Speci men Type: BLOOD SPECIMENOrdering Facility: [facility] Address: [address] [place] [address] Performed By: #### 5 7021-8 ####[facility] SYSTEMMALENA [id number] [place] [address] [place] Hemoglobin (Bld) [Mass/Vol] 9.0 g/dL Low 13.0-17.0 [facility] Comment on above: Order Comment: Speci men Type: BLOOD SPECIMENOrdering Facility: [facility] Address: [address] [place] [address] Performed By: #### 5 7021-8 ####[facility] SYSTEMNCLI [id number] [place] [address] [place] Immature granulocytes (Bld) [#/Vol] 10*3/uL Normal <0.10 [facility] Comment on above: Order Comment: Speci men Type: BLOOD SPECIMENOrdering Facility: [facility] Address: [address] [place] [address] Performed By: #### 5 7021-8 ####[facility] [id number] [place] [address] [place] Immature granulocytes/100 WBC (Bld) 0.2 % Normal [facility] Comment on above: Order Comment: Speci men Type: BLOOD SPECIMENOrdering Facility: [facility] Address: [address] [place] [address] Performed By: #### 5 7021-8 ####[facility] [id number] [place] [address] [place] Lymphocytes (Bld) [#/Vol] 1.14 10*3/uL Normal 1.00-4.00 [facility] Comment on above: Order Comment: Speci men Type: BLOOD SPECIMENOrdering Facility: [facility] Address: [address] [place] [address] Performed By: #### 5 7021-8 ####[facility] [id number] [place] [address] [place] Lymphocytes/100 WBC (Bld) 22.6 % Normal [facility] Comment on above: Order Comment: Speci men Type: BLOOD SPECIMENOrdering Facility: [facility] Address: [address] [place] [address] Performed By: #### 5 7021-8 ####[facility] [id number] [place] [address] [place] MCH (RBC) [Entitic mass] 38.6 pg High 26.0-34.0 [facility] Comment on above: Order Comment: Speci men Type: BLOOD SPECIMENOrdering Facility: [facility] Address: [address] [place] [address] Performed By: #### 5 7021-8 ####[facility] JONHWilliamsNCLIA [id number] [place] [address] [place] MCHC (RBC) [Mass/Vol] 34.4 g/dL Normal 30.5-36.0 [facility] Comment on above: Order Comment: Speci men Type: BLOOD SPECIMENOrdering Facility: [facility] Address: [address] [place] [address] Performed By: #### 5 7021-8 ####[facility] SYSTEMNCA [id number] [place] [address] [place] MCV (RBC) [Entitic vol] 112.4 fL High 80.0-100.0 [facility] Comment on above: Order Comment: Speci men Type: BLOOD SPECIMENOrdering Facility: [facility] Address: [address] [place] [address] Performed By: #### 5 7021-8 ####[facility] [id number] [place] [address] [place] Monocytes (Bld) [#/Vol] 0.72 10*3/uL Normal <0.87 [facility] Comment on above: Order Comment: Speci men Type: BLOOD SPECIMENOrdering Facility: [facility] Address: [address] [place] [address] Performed By: #### 5 7021-8 ####[facility]TONL[facility] [id number] [place] [address] [place] Monocytes/100 WBC (Bld) 14.3 % Normal [facility] Comment on above: Order Comment: Speci men Type: BLOOD SPECIMENOrdering Facility: [facility] Address: [address] [place] [address] Performed By: #### 5 7021-8 ####[facility] [id number] [place] [address] [place] Neutrophils (Bld) [#/Vol] 2.99 10*3/uL Normal 1.45-7.50 [facility] Comment on above: Order Comment: Speci men Type: BLOOD SPECIMENOrdering Facility: [facility] Address: [address] [place] [address] Performed By: #### 5 7021-8 ####[facility]TON[facility] [id number] [place] [address] [place] Neutrophils/100 WBC (Bld) 59.3 % Normal [facility] Comment on above: Order Comment: Speci men Type: BLOOD SPECIMENOrdering Facility: [facility] Address: [address] [place] [address] Performed By: #### 5 7021-8 ####[facility] [id number] [place] [address] [place] Nucleated RBC (Bld) [#/Vol] 0.03 10*3/uL High <0.01 [facility] Comment on above: Order Comment: Speci men Type: BLOOD SPECIMENOrdering Facility: [facility] Address: [address] [place] [address] Performed By: #### 5 7021-8 ####[facility] [id number] [place] [address] [place] Nucleated RBC/100 WBC (Bld) [Ratio] 0.6 /100 WBC Normal [facility] Comment on above: Order Comment: Speci men Type: BLOOD SPECIMENOrdering Facility: [facility] Address: [address] [place] [address] Performed By: #### 5 7021-8 ####[facility] [id number] [place] [address] [place] Platelet mean volume (Bld) [Entitic vol] 10.5 fL Normal 9.0-12.7 [facility] Comment on above: Order Comment: Speci men Type: BLOOD SPECIMENOrdering Facility: [facility] Address: [address] [place] [address] Performed By: #### 5 7021-8 ####[facility] JONHWNCLIA [id number] [place] [address] [place] Platelets (Bld) [#/Vol] 245 10*3/uL Normal 150-400 [facility] Comment on above: Order Comment: Speci men Type: BLOOD SPECIMENOrdering Facility: [facility] Address: [address] [place] [address] Performed By: #### 5 7021-8 ####[facility] SYSTEMNCLIA [id number] [place] [address] [place] RBC (Bld) [#/Vol] 2.33 10*6/uL Low 4.20-6.00 [facility] Comment on above: Order Comment: Speci men Type: BLOOD SPECIMENOrdering Facility: [facility] Address: [address] [place] [address] Performed By: #### 5 7021-8 ####[facility] SYSTEMNCLIA [id number] [place] [address] [place] WBC (Bld) [#/Vol] 5.04 10*3/uL Normal 3.70-11.00 [facility] Comment on above: Order Comment: Speci men Type: BLOOD SPECIMENOrdering Facility: [facility] Address: [address] [place] [address] Performed By: #### 5 7021-8 ####[facility] SYSTEMNCLIA [id number] [place] [address] [place] XR Chest PA and Lateralon IMPRESSION: No acute radiographic abnormality. Talcer: BERNARDA Transcribe Date/Time: Jan 25 2024 4:34A Dictated by : SKY SORIA MD This examination was interpreted and the report reviewed and electronically signed by: SKY SORIA MD on Jan 25 2024 4:35AM [facility] DIVISION OF RADIOLOGY * * [...] DIVISION OF RADIOLOGY Provider, [facility] - 01/25/2024 * * *Final Report* * [...] hardware. IMPRESSION IMPRESSION: No acute radiographic abnormality. Talcer: PSCB Transcribe Date/Time: Jan 25 2024 4:34A Dictated by : SKY SORIA MD This examination was interpreted and the report reviewed and electronically signed by: SKY SORIA MD on Jan 25 2024 4:35AM EST [facility] XR Chest PA and LateralOrder ed By: Ccf Provider on 01-25-2024 [facility] XR Chest PA and Lateralon Radiology Study observation (narrative) [facility] XR Elbow - right AP and Late ral and obliqueon 12-24-2023 IMPRESSION: No acute osseous abnormality Talcer: [facility] Transcribe Date/Time: Dec 24 2023 [...] the olecranon process. DIVISION OF RADIOLOGY [facility] 12/24/2023 * * *Final Report* [...] process. IMPRESSION IMPRESSION: No acute osseous abnormality Talcer: PSCRobert Transcribe Date/Time: Dec 24 2023 8:16A Dictated by : JOSE ROBERTS MD This examination was interpreted and the report reviewed and electronically signed by: JOSE ROBERTS MD on Dec 24 2023 8:20AM EST [facility] XR Elbow - right AP and Late ral and obliqueOrdered By: [facility]cf Provider on 12-24-2023 [facility] XR Elbow - right AP and Late ral and obliqueon 12-23-2023 Radiology Study observation (narrative) [facility] Laboratory - Chemistry and C hemistry - challengeOrdered By: Ronaldo Pleitez on 06-22-2023 Cobalamin (Vitamin B12) [Mass/Vol] 567 pg/mL 211-[address] [facility] No Panel InformationOrdered By: Ronaldo Pleitez on 06-22-2023 Vitamin D 25-Hydroxy 64.7 ng/mL [facility] Comment on above: Vitamin D 25(OH) Sta tus Range Deficiency <20 ng/mL (50nmol/L) Insufficiency 20 - 30 ng/mL (50 - 75 nmol/L) Sufficiency 30 - 100 ng/mL (75 - 250 nmol/L) Toxicity >100 ng/mL (>250 nmol/L) XR CHEST 2V FRONTAL/LATon [facility] Absolute lymphocyte countOrd ered By: Mary Prather on 05-18-2023 Lymphocytes Auto (Unsp spec) [#/Vol] 0.54 10*3/uL 0.83-4.[address] [facility] Basophil percentageOrdered B y: Mary Prather on 05-18-2023 Basophils/100 WBC (Bld) 0.4 % 0-[address] [facility] Bilirubin [Mass/Vol] 1.50 mg/dL 0.20-1.00 [facility] Comment on above: For patients on eltr ombopag therapy, use of Dimension [place] TBIL is not recommended. Chloride [Moles/Vol] 103 mmol/L 98-107 [facility] Eosinophils/100 WBC (Bld) 1.9 % 0-[address] [facility] Glucose [Mass/Vol] 93 mg/dL 74-106 [facility] Neutrophils (Bld) [#/Vol] 3.9 10*3/uL 2.0-7.[address] [facility] Neutrophils/100 WBC (Bld) 80.3 % 47-[address] [facility] Potassium [Moles/Vol] 3.8 mmol/L 3.5-5.1 [facility] Protein [Mass/Vol] 5.2 g/dL 6.4-8.2 [facility] Sodium [Moles/Vol] 136 mmol/L 136-145 [facility] WBC (Bld) [#/Vol] 4.8 10*3/uL 4.4-11.0 [facility] Blood erythrocytes count (nu mber/volume)Ordered By: Mary Prather on 05-18-2023 RBC (Bld) [#/Vol] 2.64 10*6/uL 4.6-6.2 [facility] Blood hemoglobin measurement (mass/volume)Ordered By: Mary Prather on 05-18-2023 Hemoglobin (Bld) [Mass/Vol] 8.7 g/dL 13.0-16.[address] [facility] Blood lymphocytes/100 leukoc ytesOrdered By: Mary Prather on 05-18-2023 Lymphocytes/100 WBC (Bld) 11.3 % 19-[address] [facility] Blood monocytes/100 leukocyt esOrdered By: Mary Prather on 05-18-2023 Monocytes/100 WBC (Bld) 4.2 % 0-[address] [facility] Blood platelet mean volumeOr dered By: Mary Prather on 05-18-2023 Platelet mean volume (Bld) [Entitic vol] 10.8 fL 6.2-12.[address] [facility] Determination of erythrocyte mean corpuscular volume (MCV)Ordered By: Mary Prather on 05-18-2023 MCV (RBC) [Entitic vol] 103.0 fL 80-[address] [facility] Hematocrit Auto (Bld) [Volum e fraction]Ordered By: Mary Prather on 05-18-2023 Hematocrit (Bld) [Volume fraction] 27.2 % 40-[address] [facility] Laboratory - Chemistry and C hemistry - challengeOrdered By: Mary Prather on 05-18-2023 ALP [Catalytic activity/Vol] 134 U/L 45-[address] [facility] ALT [Catalytic activity/Vol] 51 U/L 16-[address] [facility] CO2 [Moles/Vol] 30.0 mmol/L 21.0-32.[address] [facility] Globulin (S) [Mass/Vol] 3.1 g/dL 2.2-4.[address] [facility] Urea nitrogen/Creatinine [Mass ratio] 29.8 mg/mg 10-[address] [facility] Laboratory - Hematology and Cell countsOrdered By: Mary Prather on 05-18-2023 Anisocytosis Ql (Bld) 2+ [facility] Erythrocyte distribution width (RBC) [Entitic vol] 86.3 fL 35.1-43.[address] [facility] Erythrocyte distribution width (RBC) [Ratio] 22.7 % 11.6-14.[address] [facility] Immature granulocytes/100 WBC (Bld) 1.900 % 0.0-0.[address] [facility] Comment on above: IG% - Immature Granu locytes (promyelocytes, myelocytes and metamyelocytes) > 1% indicates that a LEFT SHIFT is Present. MCH (RBC) [Entitic mass] 33.0 pg 27.0-32.[address] [facility] Nucleated RBC/100 WBC (Bld) [Ratio] 0 % 0-[address] [facility] MCHC Auto (RBC) [Mass/Vol]Or dered By: Mary Prather on 05-18-2023 MCHC (RBC) [Mass/Vol] 32.0 g/dL 32-36 [facility] Macrocytes detectionOrdered By: Mary Prather on 05-18-2023 Macrocytes Ql (Bld) 2+ [facility] No Panel InformationOrdered By: Mary Prather on 05-18-2023 Estimated Creatinine Clearance Calc 57.92 ml/min [facility] Estimated GFR (MDRD) Amer 111 mL/min >[address] [facility] Comment on above: GFR Calc Estimated GFR (MDRD) Non-Af Amer 92 mL/min >[address] [facility] Comment on above: Non- GFR Calc Platelets bldOrdered By: Ceci Prather on 05-18-2023 Platelets (Bld) [#/Vol] 216 10*3/uL 150-[address] [facility] Serum or plasma albumin gris urement (mass/volume)Ordered By: Mary Prather on 05-18-2023 Albumin [Mass/Vol] 2.1 g/dL 3.2-5.0 [facility] Serum or plasma albumin/glob ulin mass ratioOrdered By: Mary Prather on 05-18-2023 Albumin/Globulin [Mass ratio] 0.7 {ratio} 0.9-2.[address] [facility] Serum or plasma calcium gris urement (mass/volume)Ordered By: Mary Prather on 05-18-2023 Calcium [Mass/Vol] 8.2 mg/dL 8.5-10.1 [facility] Serum or plasma creatinine m easurement (mass/volume)Ordered By: Mary Prather on 05-18-2023 Creatinine [Mass/Vol] 0.84 mg/dL 0.70-1.30 [facility] Comment on above: The validity of the calculated GFR & GFRAA in patients over 70 years has not been determined. Clinical correlation is essential. Serum or plasma urea nitroge n measurement (mass/volume)Ordered By: Mary Prather on 05-18-2023 Urea nitrogen [Mass/Vol] 25 mg/dL 7-[address] [facility] Thin prep Papanicolaou smear with manual screeningOrdered By: Mary Prather on 05-18-2023 Thin prep Papanicolaou smear with manual screening 21 U/L 15-[address] [facility] Thin prep Papanicolaou smear with manual screening 3 5-[address] [facility] Blood manual differential co mment interpretation (narrative result)Ordered By: Mary Prather on 05-17-2023 Manual differential comment Gregg (Bld) [Interp] SCANNED [facility] Blood polychromasia detectio n by light microscopyOrdered By: Mary Prather on 05-17-2023 Polychromasia LM Ql (Bld) RARE [facility] Blood schistocytes detection by light microscopyOrdered By: Mary Prather on 05-17-2023 Schistocytes LM Ql (Bld) RARE [facility] Laboratory - Chemistry and C hemistry - challengeOrdered By: Marshal Rebolledo on 05-17-2023 Cobalamin (Vitamin B12) [Mass/Vol] 341 pg/mL 211-[address] [facility] Laboratory - Microbiology an d Antimicrobial susceptibilityOrdered By: Marshal Rebolledo on 05-17-2023 Bacteria identified Cx Nom (Bld) No growth in [address] [facility] Serum or plasma folate measu rement (mass/volume)Ordered By: Marshal Rebolledo on 05-17-2023 Folate [Mass/Vol] 30.10 ng/mL 3.1-55.4 [facility] Thin prep Papanicolaou smear with manual screeningOrdered By: Mary Prather on 05-17-2023 Thin prep Papanicolaou smear with manual screening 1+ [facility] Vancomycin troughOrdered By: Marshal Rebolledo on 05-17-2023 Vancomycin trough [Mass/Vol] 15.3 ug/mL 5.0-15.[address] [facility] Comment on above: VANCOMYCIN STANDARED DRUG THERAPY TROUGH LEVEL: 5.0 - 15.0 mg/L VANCOMYCIN HIGH INTENSITY THERAPY TROUGH LEVEL: 15.0 - 20.0 mg/L High Intensity therapy recommended for serious lifethreatening infections include:- Fxwpurfqjt-Ljrdmyuuzdmu-Oqvrubzmx (Ventilator/Healtcare Associated)-Sepsis PLEASE CONTACT PHARMACY SERVICES (#[id number]) FOR INTERPRETATIONOF RESULTS. No Panel InformationOrdered By: Marshal Rebolledo on 05-16-2023 RBC Folate Hemolysate > 620.0 ng/mL Not Estab. [facility] Red Blood Cell Folate > 2322 ng/mL >[address] [facility] Comment on above: Performed at: [address] Director: Juan Manuel Uriostegui PhD, Phone: [phone] Thin prep Papanicolaou smear with manual screeningOrdered By: Marshal Rebolledo on 05-16-2023 Thin prep Papanicolaou smear with manual screening 26.7 % 37.5-51.[address] [facility] Whole blood hemoglobin A1c/t otal hemoglobin ratio (mass fraction)Ordered By: Mary Prather on 05-16-2023 HbA1c (Bld) [Mass fraction] 6.9 % 3.8-5.[address] [facility] Comment on above: Normal < 5.7 % Predi abetic 5.7 - 6.4 % Diabetic >or= 6.5 % Please note range changes. Blood platelet adequacy dete ction by light microscopyOrdered By: Mary Prather on 05-15-2023 Platelets LM Ql (Bld) ADEQUATE ADEQ [facility] Glucose Glucometer (BldC) [M ass/Vol]Ordered By: Mary Prather on 05-15-2023 Glucose [Mass/Vol] 147 mg/dL 74-106 [facility] Comment on above: MANAGEMENT OF PATIEN T CARE PER NURSING PROTOCOL INR in Blood by Coagulation assayOrdered By: Mary Prather on 05-15-2023 INR Coag (Bld) [Relative time] 1.5 {INR} [facility] Laboratory - Chemistry and C hemistry - challengeOrdered By: Mary Prather on 05-15-2023 Magnesium [Mass/Vol] 1.9 mg/dL 1.6-2.6 [facility] Laboratory - CoagulationOrde red By: Mary Prather on 05-15-2023 PT Coag (PPP) [Time] 18.2 s 11.7-14.9 [facility] No Panel InformationOrdered By: Mary Prather on 05-15-2023 Digoxin Level 1.39 ng/mL 0.80-2.[address] [facility] Thyroid Stimulating Hormone (TSH) 0.61 uIU/mL 0.358-3.[address] [facility] Absolute lymphocyte countOrd ered By: Pedro Diaz on 05-14-2023 Lymphocytes Auto (Unsp spec) [#/Vol] 0.39 10*3/uL 0.83-4.[address] [facility] Basophil percentageOrdered B y: Pedro Diaz on 05-14-2023 Lactate [Moles/Vol] 2.4 mmol/L 0.4-2.0 [facility] Comment on above: Critical Result(s) C alled at: 18:12:55 05/14/2023 by: Yue LEWIS. Results read back by same. Basophils/100 WBC (Bld) 0.4 % 0-[address] [facility] Bilirubin [Mass/Vol] 1.20 mg/dL 0.20-1.00 [facility] Comment on above: For patients on eltr ombopag therapy, use of Dimension [place] TBIL is not recommended. Chloride [Moles/Vol] 96 mmol/L 98-107 [facility] Eosinophils/100 WBC (Bld) 0.0 % 0-[address] [facility] Glucose [Mass/Vol] 252 mg/dL 74-106 [facility] Comment on above: Glucose result great er than or equal to 200 mg/dLsuggests DIABETES MELLITUS per A.D.A. criteria. Lactate [Moles/Vol] 3.8 mmol/L 0.4-2.0 [facility] Comment on above: Critical Result(s) C alled at: 13:57:26 05/14/2023 by: Tari Martínez. Results read back by same. Neutrophils (Bld) [#/Vol] 6.2 10*3/uL 2.0-7.[address] [facility] Neutrophils/100 WBC (Bld) 89.7 % 47-[address] [facility] Potassium [Moles/Vol] 4.5 mmol/L 3.5-5.1 [facility] Protein [Mass/Vol] 5.4 g/dL 6.4-8.2 [facility] Sodium [Moles/Vol] 136 mmol/L 136-145 [facility] WBC (Bld) [#/Vol] 7.0 10*3/uL 4.4-11.0 [facility] Blood erythrocytes count (nu mber/volume)Ordered By: Pedro Diaz on 05-14-2023 RBC (Bld) [#/Vol] 2.84 10*6/uL 4.6-6.2 [facility] Blood hemoglobin measurement (mass/volume)Ordered By: Pedro Diaz on 05-14-2023 Hemoglobin (Bld) [Mass/Vol] 9.3 g/dL 13.0-16.[address] [facility] Blood lymphocytes/100 leukoc ytesOrdered By: Pedro Diaz on 05-14-2023 Lymphocytes/100 WBC (Bld) 5.6 % 19-[address] [facility] Blood manual differential co mment interpretation (narrative result)Ordered By: Pedro Diaz on 05-14-2023 Manual differential comment Gregg (Bld) [Interp] SCANNED [facility] Blood monocytes/100 leukocyt esOrdered By: Pedro Diaz on 05-14-2023 Monocytes/100 WBC (Bld) 2.7 % 0-[address] [facility] Blood platelet mean volumeOr dered By: Pedro Diaz on 05-14-2023 Platelet mean volume (Bld) [Entitic vol] 10.7 fL 6.2-12.[address] [facility] Blood polychromasia detectio n by light microscopyOrdered By: Pedro Diaz on 05-14-2023 Polychromasia LM Ql (Bld) RARE [facility] Determination of erythrocyte mean corpuscular volume (MCV)Ordered By: Pedro Diaz on 05-14-2023 MCV (RBC) [Entitic vol] 103.2 fL 80-[address] [facility] Hematocrit Auto (Bld) [Volum e fraction]Ordered By: Pedro Diaz on 05-14-2023 Hematocrit (Bld) [Volume fraction] 29.3 % 40-[address] [facility] INR in Blood by Coagulation assayOrdered By: Pedro Diaz on 05-14-2023 INR Coag (Bld) [Relative time] 1.5 {INR} [facility] Laboratory - Chemistry and C hemistry - challengeOrdered By: Pedro Diaz on 05-14-2023 ALP [Catalytic activity/Vol] 92 U/L 45-[address] [facility] ALT [Catalytic activity/Vol] 51 U/L 16-[address] [facility] CO2 [Moles/Vol] 35.0 mmol/L 21.0-32.[address] [facility] Globulin (S) [Mass/Vol] 2.7 g/dL 2.2-4.[address] [facility] Natriuretic peptide B (Bld) [Mass/Vol] 972.1 pg/mL 0-[address] [facility] Urea nitrogen/Creatinine [Mass ratio] 26.5 mg/mg 10-[address] [facility] Laboratory - CoagulationOrde red By: Pedro Diaz on 05-14-2023 aPTT Coag (Bld) [Time] 30.3 s 24.1-36.2 [facility] PT Coag (PPP) [Time] 18.6 s 11.7-14.9 [facility] Laboratory - Hematology and Cell countsOrdered By: Pedro Diaz on 05-14-2023 Anisocytosis Ql (Bld) 2+ [facility] Erythrocyte distribution width (RBC) [Entitic vol] 83.3 fL 35.1-43.[address] [facility] Erythrocyte distribution width (RBC) [Ratio] 22.2 % 11.6-14.[address] [facility] Immature granulocytes/100 WBC (Bld) 1.600 % 0.0-0.[address] [facility] Comment on above: IG% - Immature Granu locytes (promyelocytes, myelocytes and metamyelocytes) > 1% indicates that a LEFT SHIFT is Present. MCH (RBC) [Entitic mass] 32.7 pg 27.0-32.[address] [facility] Nucleated RBC/100 WBC (Bld) [Ratio] 0.4 % 0-[address] [facility] MCHC Auto (RBC) [Mass/Vol]Or dered By: Pedro Diaz on 05-14-2023 MCHC (RBC) [Mass/Vol] 31.7 g/dL 32-36 [facility] Macrocytes detectionOrdered By: Pedro Diaz on 05-14-2023 Macrocytes Ql (Bld) 1+ [facility] No Panel InformationOrdered By: Pedro Diaz on 05-14-2023 Estimated Creatinine Clearance Calc 41.59 ml/min [facility] Estimated GFR (MDRD) Amer 76 mL/min >[address] [facility] Comment on above: GFR Calc Estimated GFR (MDRD) Non-Af Amer 63 mL/min >[address] [facility] Comment on above: Non- GFR Calc Troponin I High Sensitivity 111 pg/mL 3.0-78.[address] [facility] Comment on above: Please Note: New Lina t Units and Gender Specific Reference Ranges. For more information see Policy Stat Procedure [place] High Sensitivity Troponin (TNIH) and attachments. Platelets bldOrdered By: Mago Diaz on 05-14-2023 Platelets (Bld) [#/Vol] 399 10*3/uL 150-[address] [facility] Serum or plasma albumin gris urement (mass/volume)Ordered By: Pedro Diaz on 05-14-2023 Albumin [Mass/Vol] 2.7 g/dL 3.2-5.0 [facility] Serum or plasma albumin/glob ulin mass ratioOrdered By: Pedro Diaz on 05-14-2023 Albumin/Globulin [Mass ratio] 1.0 {ratio} 0.9-2.[address] [facility] Serum or plasma calcium gris urement (mass/volume)Ordered By: Pedro Diaz on 05-14-2023 Calcium [Mass/Vol] 8.4 mg/dL 8.5-10.1 [facility] Serum or plasma creatinine m easurement (mass/volume)Ordered By: Pedro Diaz on 05-14-2023 Creatinine [Mass/Vol] 1.17 mg/dL 0.70-1.30 [facility] Comment on above: The validity of the calculated GFR & GFRAA in patients over 70 years has not been determined. Clinical correlation is essential. Serum or plasma urea nitroge n measurement (mass/volume)Ordered By: Pedro Diaz on 05-14-2023 Urea nitrogen [Mass/Vol] 31 mg/dL 7-[address] [facility] Thin prep Papanicolaou smear with manual screeningOrdered By: Pedro Diaz on 05-14-2023 Thin prep Papanicolaou smear with manual screening 20 U/L 15-[address] [facility] Thin prep Papanicolaou smear with manual screening 5 5-[address] [facility] No Panel InformationOrdered By: [facility] on 05-06-2023 Digoxin Level 0.96 ng/mL 0.80-2.[address] [facility] CBC W Auto Differential pane l (Bld)on 05-04-2023 Basophils (Bld) [#/Vol] 0.04 10*3/uL <0.11 k/uL [facility] Basophils/100 WBC (Bld) 1.5 % [facility] Differential cell count method Nom (Bld) Auto [facility] Eosinophils (Bld) [#/Vol] 0.06 10*3/uL <0.46 k/uL [facility] Eosinophils/100 WBC (Bld) 2.3 % [facility] Erythrocyte distribution width (RBC) [Ratio] 22.0 % High 11.5 - 15.0 % [facility] Hematocrit (Bld) [Volume fraction] 28.2 % Low 39.0 - 51.0 % [facility] Hemoglobin (Bld) [Mass/Vol] 9.2 g/dL Low 13.0 - 17.0 g/dL [facility] Immature granulocytes (Bld) [#/Vol] <0.10 k/uL [facility] Immature granulocytes/100 WBC (Bld) 0.4 % [facility] Lymphocytes (Bld) [#/Vol] 0.63 10*3/uL Low 1.00 - 4.00 k/uL [facility] Lymphocytes/100 WBC (Bld) 24.2 % [facility] MCH (RBC) [Entitic mass] 33.7 pg 26.0 - 34.0 pg [facility] MCHC (RBC) [Mass/Vol] 32.6 g/dL 30.5 - 36.0 g/dL [facility] MCV (RBC) [Entitic vol] 103.3 fL High 80.0 - 100.0 fL [facility] Monocytes (Bld) [#/Vol] 0.17 10*3/uL <0.87 k/uL [facility] Monocytes/100 WBC (Bld) 6.5 % [facility] Neutrophils (Bld) [#/Vol] 1.69 10*3/uL 1.45 - 7.50 k/uL [facility] Neutrophils/100 WBC (Bld) 65.1 % [facility] Nucleated RBC (Bld) [#/Vol] <0.01 k/uL [facility] Nucleated RBC/100 WBC (Bld) [Ratio] 0.0 /100 WBC [facility] Platelet mean volume (Bld) [Entitic vol] 10.1 fL 9.0 - 12.7 fL [facility] Platelets (Bld) [#/Vol] 338 10*3/uL 150 - 400 k/uL [facility] RBC (Bld) [#/Vol] 2.73 10*6/uL Low 4.20 - 6.00 m/uL [facility] WBC (Bld) [#/Vol] 2.60 10*3/uL Low 3.70 - 11.00 k/uL [facility] No Panel InformationOrdered By: Bronwood Living on 05-04-2023 Troponin I High Sensitivity 116 pg/mL 3.0-78.[address] [facility] Comment on above: Please Note: New Lina t Units and Gender Specific Reference Ranges. For more information see Policy Stat Procedure [place] High Sensitivity Troponin (TNIH) and attachments. CT BRAIN WO IVCONon 04-21-20 23 [facility] CNPNon 04-20-2023 CNPN Normal [facility] Basic metabolic 2000 panelon 03-20-2023 Anion gap [Moles/Vol] 4 mmol/L Low 9-18 [facility] Comment on above: Order Comment: Speci men Type: BLOOD SPECIMENOrdering Facility: [facility] Address: [address] [place] [address] Performed By: #### 2 4321-2 ####PEG SAUCEDA GREEN LABCLIA [id number] [place] [address] [place] Calcium [Mass/Vol] 8.8 mg/dL Normal 8.6-10.3 [facility] Comment on above: Order Comment: Speci men Type: BLOOD SPECIMENOrdering Facility: [facility] Address: [address] [place] [address] Performed By: #### 2 4321-2 ####BELLOALIREZA SAUCEDA GREEN LABCLIA [id number] [place] [address] [place] Chloride [Moles/Vol] 102 mmol/L Normal 101-111 [facility] Comment on above: Order Comment: Speci men Type: BLOOD SPECIMENOrdering Facility: [facility] Address: [address] [place] [address] Performed By: #### 2 4321-2 ####BELLOALIREZA SAUCEDA [employer] LABCLIA [id number] [place] [address] [place] CO2 [Moles/Vol] 35 mmol/L High 21-31 [facility] Comment on above: Order Comment: Speci men Type: BLOOD SPECIMENOrdering Facility: [facility] Address: [address] [place] [address] Performed By: #### 2 4321-2 ####PEG SAUCEDA GREEN LABCLIA [id number] [place] [address] [place] Creatinine [Mass/Vol] 1.05 mg/dL Normal 0.60-1.30 [facility] Comment on above: Order Comment: Speci men Type: BLOOD SPECIMENOrdering Facility: [facility] Address: [address] [place] [address] Result Comment: Use of this assay is not recommended for patients undergoing treatment with phenindione, due to the potential for falsely depressed results. Performed By: #### 2 4321-2 ####PEG WOODARDIA [id number] [place] [address] [place] ESTIMATED GLOMERULAR FILTRATION RATE 69 mL/min/1.73m??? Normal >=60 [facility] Comment on above: Order Comment: Elfego gilbert Type: BLOOD SPECIMENOrdering Facility: [facility] Address: [address] [place] [address] Result Comment: Concepción mated Glomerular Filtration Rate [...] GFR. Performed By: #### 2 4321-2 ####PEG LLANESIA [id number] [place] [address] [place] Glucose [Mass/Vol] 115 mg/dL High 74-99 [facility] Comment on above: Order Comment: Elfego gilbert Type: BLOOD SPECIMENOrdering Facility: [facility] Address: [address] [place] [address] Result Comment: The [place] Diabetes Association (ADA) provides guidance for cutoff [...] Standards of Medical Care in Diabetes 2016, [place] [employer]. Diabetes Care. 2016.39(Suppl 1). Performed By: #### 2 4321-2 ####PEG LLANESIA [id number] [place] [address] [place] Potassium [Moles/Vol] 3.9 mmol/L Normal 3.6-5.1 [facility] Comment on above: Order Comment: Speci men Type: BLOOD SPECIMENOrdering Facility: [facility] Address: [address] [place] [address] Performed By: #### 2 4321-2 ####PEG SAUCEDA GREEN LABCLIA [id number] [place] [address] [place] Sodium [Moles/Vol] 141 mmol/L Normal 136-144 [facility] Comment on above: Order Comment: Speci men Type: BLOOD SPECIMENOrdering Facility: [facility] Address: [address] [place] [address] Performed By: #### 2 4321-2 ####[place] [employer] LABCLIA [id number] [place] [address] [place] Urea nitrogen [Mass/Vol] 32 mg/dL High 7-25 [facility] Comment on above: Order Comment: Speci men Type: BLOOD SPECIMENOrdering Facility: [facility] Address: [address] [place] [address] Performed By: #### 2 4321-2 ####PEG SAUCEDA Areshay LABCLIA [id number] [place] [address] [place] CBC W Auto Differential pane l (Bld)on 03-20-2023 Basophils (Bld) [#/Vol] 0.03 10*3/uL Normal <0.11 [facility] Comment on above: Order Comment: Speci men Type: BLOOD SPECIMENOrdering Facility: [facility] Address: [address] [place] [address] Performed By: #### 5 7021-8 ####WYALIREZA [employer] GREEN LABCLIA [id number] [place] [address] [place] Basophils/100 WBC (Bld) 0.6 % Normal [facility] Comment on above: Order Comment: Speci men Type: BLOOD SPECIMENOrdering Facility: [facility] Address: [address] [place] [address] Performed By: #### 5 7021-8 ####PEG SAUCEDA GREEN LABCLIA [id number] [place] [address] [facility] [place] Differential cell count method Nom (Bld) Auto Normal [facility] Comment on above: Order Comment: Speci men Type: BLOOD SPECIMENOrdering Facility: [facility] Address: [address] [place] [address] Performed By: #### 5 7021-8 ####PEG SAUCEDA GREEN LABCLIA [id number] [place] [address] [place] Eosinophils (Bld) [#/Vol] 0.11 10*3/uL Normal <0.46 [facility] Comment on above: Order Comment: Speci men Type: BLOOD SPECIMENOrdering Facility: [facility] Address: [address] [place] [address] Performed By: #### 5 7021-8 ####PEG SAUCEDA GREEN LABCLIA [id number] [address] [place] Eosinophils/100 WBC (Bld) 2.1 % Normal [facility] Comment on above: Order Comment: Speci men Type: BLOOD SPECIMENOrdering Facility: [facility] Address: [address] [place] [address] Performed By: #### 5 7021-8 ####PEG SAUCEDA GREEN LABCLIA [id number] [place] [address] [place] Erythrocyte distribution width (RBC) [Ratio] 21.1 % High 11.5-15.0 [facility] Comment on above: Order Comment: Speci men Type: BLOOD SPECIMENOrdering Facility: [facility] Address: [address] [place] [address] Performed By: #### 5 7021-8 ####[facility] LABCLIA [id number] [place] [address] [place] Hematocrit (Bld) [Volume fraction] 30.8 % Low 39.0-51.0 [facility] Comment on above: Order Comment: Speci men Type: BLOOD SPECIMENOrdering Facility: [facility] Address: [address] [place] [address] Performed By: #### 5 7021-8 ####PEG YANG LABCLIA [id number] [place] [address] [place] Hemoglobin (Bld) [Mass/Vol] 9.9 g/dL Low 13.0-17.0 [facility] Comment on above: Order Comment: Speci men Type: BLOOD SPECIMENOrdering Facility: [facility] Address: [address] [place] [address] Performed By: #### 5 7021-8 ####WYALIREZA YANG LABCLIA [id number] [place] [address] [place] Immature granulocytes (Bld) [#/Vol] 0.04 10*3/uL Normal <0.10 [facility] Comment on above: Order Comment: Speci men Type: BLOOD SPECIMENOrdering Facility: [facility] Address: [address] [place] [address] Performed By: #### 5 7021-8 ####PEG YANG LABCLIA [id number] [place] [address] [place] Immature granulocytes/100 WBC (Bld) 0.8 % Normal [facility] Comment on above: Order Comment: Speci men Type: BLOOD SPECIMENOrdering Facility: [facility] Address: [address] [place] [address] Performed By: #### 5 7021-8 ####PEG YANG LABCLIA [id number] [place] [address] [place] Lymphocytes (Bld) [#/Vol] 1.05 10*3/uL Normal 1.00-4.00 [facility] Comment on above: Order Comment: Speci men Type: BLOOD SPECIMENOrdering Facility: [facility] Address: [address] [place] [address] Performed By: #### 5 7021-8 ####[facility] LABCLIA [id number] [place] [address] [place] Lymphocytes/100 WBC (Bld) 20.3 % Normal [facility] Comment on above: Order Comment: Speci men Type: BLOOD SPECIMENOrdering Facility: [facility] Address: [address] [place] [address] Performed By: #### 5 7021-8 ####[facility] LABCLIA [id number] [place] [address] [place] MCH (RBC) [Entitic mass] 35.4 pg High 26.0-34.0 [facility] Comment on above: Order Comment: Speci men Type: BLOOD SPECIMENOrdering Facility: [facility] Address: [address] [place] [address] Performed By: #### 5 7021-8 ####[facility] LABIA [id number] [place] MCHC (RBC) [Mass/Vol] 32.1 g/dL Normal 30.5-36.0 [facility] Comment on above: Order Comment: Speci men Type: BLOOD SPECIMENOrdering Facility: [facility] Address: [address] [place] [address] Performed By: #### 5 7021-8 ####[facility] LABCLIA [id number] [place] [address] [place] MCV (RBC) [Entitic vol] 110.0 fL High 80.0-100.0 [facility] Comment on above: Order Comment: Speci men Type: BLOOD SPECIMENOrdering Facility: [facility] Address: [address] [place] [address] Performed By: #### 5 7021-8 ####PEG SAUCEDA GREEN LABCLIA [id number] [place] [address] [place] Monocytes (Bld) [#/Vol] 0.38 10*3/uL Normal <0.87 [facility] Comment on above: Order Comment: Speci men Type: BLOOD SPECIMENOrdering Facility: [facility] Address: [address] [place] [address] Performed By: #### 5 7021-8 ####PEG SAUCEDA GREEN LABCLIA [id number] [place] [address] [place] Monocytes/100 WBC (Bld) 7.4 % Normal [facility] Comment on above: Order Comment: Speci men Type: BLOOD SPECIMENOrdering Facility: [facility] Address: [address] [place] [address] Performed By: #### 5 7021-8 ####PEG SAUCEDA GREEN LABCLIA [id number] [place] [address] [place] Neutrophils (Bld) [#/Vol] 3.55 10*3/uL Normal 1.45-7.50 [facility] Comment on above: Order Comment: Speci men Type: BLOOD SPECIMENOrdering Facility: [facility] Address: [address] [place] [address] Performed By: #### 5 7021-8 ####PEG SAUCEDA GREEN LABCLIA [id number] [place] [address] [place] Neutrophils/100 WBC (Bld) 68.8 % Normal [facility] Comment on above: Order Comment: Speci men Type: BLOOD SPECIMENOrdering Facility: [facility] Address: [address] [place] [address] Performed By: #### 5 7021-8 ####PEG SAUCEDA GREEN LABCLIA [id number] [place] [address] [place] Nucleated RBC (Bld) [#/Vol] Normal [facility] Comment on above: Order Comment: Speci men Type: BLOOD SPECIMENOrdering Facility: [facility] Address: [address] [place] [address] Performed By: #### 5 7021-8 ####PEG YANG LABCLIA [id number] [address] [place] Nucleated RBC/100 WBC (Bld) [Ratio] Normal [facility] Comment on above: Order Comment: Speci men Type: BLOOD SPECIMENOrdering Facility: [facility] Address: [address] [place] [address] Performed By: #### 5 7021-8 ####PEG YANG LABCLIA [id number] [place] [address] [place] Platelet mean volume (Bld) [Entitic vol] 11.2 fL Normal 9.0-12.7 [facility] Comment on above: Order Comment: Speci men Type: BLOOD SPECIMENOrdering Facility: [facility] Address: [address] [place] [address] Performed By: #### 5 7021-8 ####WYALIREZA YANG LABCLIA [id number] [place] [address] [place] Platelets (Bld) [#/Vol] 382 10*3/uL Normal 150-400 [facility] Comment on above: Order Comment: Speci men Type: BLOOD SPECIMENOrdering Facility: [facility] Address: [address] Performed By: #### 5 7021-8 ####[facility] LABCLIA [id number] [place] [address] [place] RBC (Bld) [#/Vol] 2.80 10*6/uL Low 4.20-6.00 [facility] Comment on above: Order Comment: Speci men Type: BLOOD SPECIMENOrdering Facility: [facility] Address: [address] Performed By: #### 5 7021-8 ####[facility] LABCLIA [id number] [place] [address] [place] [facility] WBC (Bld) [#/Vol] 5.16 10*3/uL Normal 3.70-11.00 [facility] Comment on above: Order Comment: Speci men Type: BLOOD SPECIMENOrdering Facility: [facility] Address: [address] [place] [address] Performed By: #### 5 7021-8 ####[facility] LABCLIA [id number] [place] [address] [facility] ECG COMPLETEon 03-20-2023 ECG COMPLETE Normal [facility] ED PROV NOTEon 03-20-2023 ED PROV NOTE Normal [facility] XR FOOT 3V AP/LAT/OBL RTon 0 03-20-2023 XR FOOT 3V AP/LAT/OBL RT Normal [facility] aPTT PPPon 03-20-2023 aPTT Coag (PPP) [Time] 29.2 s Normal 23.0-32.4 [facility] Comment on above: Order Comment: Speci men Type: BLOOD SPECIMENOrdering Facility: [facility] Address: [address] [place] [address] Performed By: #### 1 4979-9 ####[facility] [id number] [place] [address] [facility] CNOVSPon 03-11-2023 CNOVSP Normal [facility] CBC W Auto Differential pane l (Bld)on 03-09-2023 Basophils (Bld) [#/Vol] 0.09 10*3/uL Normal <0.11 [facility] Comment on above: Order Comment: Speci men Type: BLOOD SPECIMENOrdering Facility: [facility] Address: [address] [place] [address] Performed By: #### 5 7021-8 ####[place] [facility] LABCLIA [id number] [address] [id number] Basophils/100 WBC (Bld) 3.5 % Normal [facility] Comment on above: Order Comment: Speci men Type: BLOOD SPECIMENOrdering Facility: [facility] Address: [address] [place] [address] Performed By: #### 5 7021-8 ####PEG [facility] LABCLIA [id number] [place] [address] [facility] Differential cell count method Nom (Bld) Auto Normal [facility] Comment on above: Order Comment: Speci men Type: BLOOD SPECIMENOrdering Facility: [facility] Address: [address] [place] [address] Performed By: #### 5 7021-8 ####[facility] LABCLIA [id number] [place] [address] [place] Eosinophils (Bld) [#/Vol] 0.09 10*3/uL Normal <0.46 [facility] Comment on above: Order Comment: Speci men Type: BLOOD SPECIMENOrdering Facility: [facility] Address: [address] [place] [address] Performed By: #### 5 7021-8 ####BELLOALIREZA [facility]UC[facility] GREEN LABCLIA [id number] [place] [address] [place] Eosinophils/100 WBC (Bld) 3.5 % Normal [facility] Comment on above: Order Comment: Speci men Type: BLOOD SPECIMENOrdering Facility: [facility] Address: [address] [place] [address] Performed By: #### 5 7021-8 ####PEG SAUC[facility] GREEN LABCLIA [id number] [place] [address] [place] Erythrocyte distribution width (RBC) [Ratio] 20.2 % High 11.5-15.0 [facility] Comment on above: Order Comment: Speci men Type: BLOOD SPECIMENOrdering Facility: [facility] Address: [address] [place] [address] Performed By: #### 5 7021-8 ####[facility] LABCLIA [id number] [place] [address] [place] Hematocrit (Bld) [Volume fraction] 28.7 % Low 39.0-51.0 [facility] Comment on above: Order Comment: Speci men Type: BLOOD SPECIMENOrdering Facility: [facility] Address: [address] [place] [address] Performed By: #### 5 7021-8 ####PEG [facility] LABCLIA [id number] [place] [address] [place] Hemoglobin (Bld) [Mass/Vol] 8.8 g/dL Low 13.0-17.0 [facility] Comment on above: Order Comment: Speci men Type: BLOOD SPECIMENOrdering Facility: [facility] Address: [address] [place] [address] Performed By: #### 5 7021-8 ####[facility] LABCLIA [id number] [address] [place] Immature granulocytes (Bld) [#/Vol] 10*3/uL Normal <0.10 [facility] Comment on above: Order Comment: Speci men Type: BLOOD SPECIMENOrdering Facility: [facility] Address: [address] [place] [address] Performed By: #### 5 7021-8 ####[facility]ANG LABCLIA [id number] [place] [address] [facility] OF [place] Immature granulocytes/100 WBC (Bld) 0.0 % Normal [facility] Comment on above: Order Comment: Speci men Type: BLOOD SPECIMENOrdering Facility: [facility] Address: [address] [place] [address] Performed By: #### 5 7021-8 ####[place] [facility] LABCLIA [id number] [place] [address] [facility] [place] Lymphocytes (Bld) [#/Vol] 0.81 10*3/uL Low 1.00-4.00 [facility] Comment on above: Order Comment: Speci men Type: BLOOD SPECIMENOrdering Facility: [facility] Address: [address] [place] [address] Performed By: #### 5 7021-8 ####WYALIREZA [facility] LABCLIA [id number] [address] [place] Lymphocytes/100 WBC (Bld) 31.6 % Normal [facility] Comment on above: Order Comment: Speci men Type: BLOOD SPECIMENOrdering Facility: [facility] Address: [address] [place] [address] Performed By: #### 5 7021-8 ####[facility] LABIA [id number] [place] [address] [place] MCH (RBC) [Entitic mass] 34.5 pg High 26.0-34.0 [facility] Comment on above: Order Comment: Speci men Type: BLOOD SPECIMENOrdering Facility: [facility] Address: [address] [place] [address] Performed By: #### 5 7021-8 ####[facility] LABIA [id number] [address] [place] MCHC (RBC) [Mass/Vol] 30.7 g/dL Normal 30.5-36.0 [facility] Comment on above: Order Comment: Speci men Type: BLOOD SPECIMENOrdering Facility: [facility] Address: [address] [place] [address] Performed By: #### 5 7021-8 ####[facility] LABCLIA [id number] [place] [address] [place] [facility] MCV (RBC) [Entitic vol] 112.5 fL High 80.0-100.0 [facility] Comment on above: Order Comment: Speci men Type: BLOOD SPECIMENOrdering Facility: [facility] Address: [address] [place] [address] Performed By: #### 5 7021-8 ####PEG [facility]UC[facility] GRE[facility] LABCLIA [id number] [place] [address] [place] Monocytes (Bld) [#/Vol] 0.15 10*3/uL Normal <0.87 [facility] Comment on above: Order Comment: Speci men Type: BLOOD SPECIMENOrdering Facility: [facility] Address: [address] [place] [address] Performed By: #### 5 7021-8 ####PEG [facility]UC[facility] LABCLIA [id number] [place] [address] [place] Monocytes/100 WBC (Bld) 5.9 % Normal [facility] Comment on above: Order Comment: Speci men Type: BLOOD SPECIMENOrdering Facility: [facility] Address: [address] [place] [address] Performed By: #### 5 7021-8 ####PEG [facility] LABCLIA [id number] [place] [address] [place] Neutrophils (Bld) [#/Vol] 1.42 10*3/uL Low 1.45-7.50 [facility] Comment on above: Order Comment: Speci men Type: BLOOD SPECIMENOrdering Facility: [facility] Address: [address] [place] [address] Performed By: #### 5 7021-8 ####PEG [facility]UC[facility] LABCLIA [id number] [place] [address] [place] Neutrophils/100 WBC (Bld) 55.5 % Normal [facility] Comment on above: Order Comment: Speci men Type: BLOOD SPECIMENOrdering Facility: [facility] Address: [address] [place] [address] Performed By: #### 5 7021-8 ####[facility] LABCLIA [id number] [place] [address] [place] Nucleated RBC (Bld) [#/Vol] Normal [facility] Comment on above: Order Comment: Speci men Type: BLOOD SPECIMENOrdering Facility: [facility] Address: [address] [place] [address] Performed By: #### 5 7021-8 ####PEG SAUCED[facility] GREEN LABCLIA [id number] [place] [address] [place] Nucleated RBC/100 WBC (Bld) [Ratio] Normal [facility] Comment on above: Order Comment: Speci men Type: BLOOD SPECIMENOrdering Facility: [facility] Address: [address] [place] [address] Performed By: #### 5 7021-8 ####PEG [facility] LABCLIA [id number] [place] [address] [place] Platelet mean volume (Bld) [Entitic vol] 10.4 fL Normal 9.0-12.7 [facility] Comment on above: Order Comment: Speci men Type: BLOOD SPECIMENOrdering Facility: [facility] Address: [address] [place] [address] Performed By: #### 5 7021-8 ####BELLOALIREZA YANG LABCLIA [id number] [place] [address] [place] Platelets (Bld) [#/Vol] 359 10*3/uL Normal 150-400 [facility] Comment on above: Order Comment: Speci men Type: BLOOD SPECIMENOrdering Facility: [facility] Address: [address] Performed By: #### 5 7021-8 ####[place] [facility] LABCLIA [id number] [place] [address] [place] RBC (Bld) [#/Vol] 2.55 10*6/uL Low 4.20-6.00 [facility] Comment on above: Order Comment: Speci men Type: BLOOD SPECIMENOrdering Facility: [facility] Address: [address] [place] [address] [place] [address] Performed By: #### 5 7021-8 ####[facility] LABCLIA [id number] [place] [address] [place] WBC (Bld) [#/Vol] 2.56 10*3/uL Low 3.70-11.00 [facility] Comment on above: Order Comment: Speci men Type: BLOOD SPECIMENOrdering Facility: [facility] Address: [address] [place] [id number] Performed By: #### 5 7021-8 ####WYALIREZA YANG LABCLIA [id number] [place] [address] [place] Basophils (Bld) [#/Vol] 0.09 10*3/uL <0.11 k/uL [facility] Basophils/100 WBC (Bld) 3.5 % [facility] Differential cell count method Nom (Bld) Auto [facility] Eosinophils (Bld) [#/Vol] 0.09 10*3/uL <0.46 k/uL [facility] Eosinophils/100 WBC (Bld) 3.5 % [facility] Erythrocyte distribution width (RBC) [Ratio] 20.2 % High 11.5 - 15.0 % [facility] Hematocrit (Bld) [Volume fraction] 28.7 % Low 39.0 - 51.0 % [facility] Hemoglobin (Bld) [Mass/Vol] 8.8 g/dL Low 13.0 - 17.0 g/dL [facility] Immature granulocytes (Bld) [#/Vol] <0.10 k/uL [facility] Immature granulocytes/100 WBC (Bld) 0.0 % [facility] Lymphocytes (Bld) [#/Vol] 0.81 10*3/uL Low 1.00 - 4.00 k/uL [facility] Lymphocytes/100 WBC (Bld) 31.6 % [facility] MCH (RBC) [Entitic mass] 34.5 pg High 26.0 - 34.0 pg [facility] MCHC (RBC) [Mass/Vol] 30.7 g/dL 30.5 - 36.0 g/dL [facility] MCV (RBC) [Entitic vol] 112.5 fL High 80.0 - 100.0 fL [facility] Monocytes (Bld) [#/Vol] 0.15 10*3/uL <0.87 k/uL [facility] Monocytes/100 WBC (Bld) 5.9 % [facility] Neutrophils (Bld) [#/Vol] 1.42 10*3/uL Low 1.45 - 7.50 k/uL [facility] Neutrophils/100 WBC (Bld) 55.5 % [facility] Nucleated RBC (Bld) [#/Vol] [facility] Nucleated RBC/100 WBC (Bld) [Ratio] [facility] Platelet mean volume (Bld) [Entitic vol] 10.4 fL 9.0 - 12.7 fL [facility] Platelets (Bld) [#/Vol] 359 10*3/uL 150 - 400 k/uL [facility] RBC (Bld) [#/Vol] 2.55 10*6/uL Low 4.20 - 6.00 m/uL [facility] WBC (Bld) [#/Vol] 2.56 10*3/uL Low 3.70 - 11.00 k/uL [facility] Comprehensive metabolic 2000 panelon 03-09-2023 Albumin [Mass/Vol] 3.5 g/dL Normal 3.5-5.7 [facility] Comment on above: Order Comment: Speci men Type: BLOOD SPECIMENOrdering Facility: [facility] Address: [address] [place] [address] Performed By: #### 2 4323-8 ####[facility] SAUCEDA [facility] LABCLIA [id number] [address] ALP [Catalytic activity/Vol] 75 U/L Normal 34-104 [facility] Comment on above: Order Comment: Speci men Type: BLOOD SPECIMENOrdering Facility: [facility] Address: [address] [place] [address] Performed By: #### 2 4323-8 ####[place] [employer] [facility] LABCLIA [id number] [address] STATES OF [facility] ALT [Catalytic activity/Vol] 27 U/L Normal 7-52 [facility] Comment on above: Order Comment: Speci men Type: BLOOD SPECIMENOrdering Facility: [facility] Address: [address] [place] [address] Performed By: #### 2 4323-8 ####PEG [facility] LABCLIA [id number] [place] [address] [place] Anion gap [Moles/Vol] 5 mmol/L Low 9-18 [facility] Comment on above: Order Comment: Speci men Type: BLOOD SPECIMENOrdering Facility: [facility] Address: [address] [place] [address] Performed By: #### 2 4323-8 ####[facility] LABCLIA [id number] [place] [address] [place] AST [Catalytic activity/Vol] 24 U/L Normal 13-39 [facility] Comment on above: Order Comment: Speci men Type: BLOOD SPECIMENOrdering Facility: [facility] Address: [address] [place] [address] Performed By: #### 2 4323-8 ####[facility] LABCLIA [id number] [place] [address] [place] Bilirubin [Mass/Vol] 0.8 mg/dL Normal 0.3-1.0 [facility] Comment on above: Order Comment: Speci men Type: BLOOD SPECIMENOrdering Facility: [facility] Address: [address] [place] [address] Result Comment: Use of this assay is not recommended for patients undergoing treatment with eltrombopag due to the potential for falsely elevated results. Performed By: #### 2 4323-8 ####[facility] LABCLIA [id number] [place] [address] [place] Calcium [Mass/Vol] 8.6 mg/dL Normal 8.6-10.3 [facility] Comment on above: Order Comment: Speci men Type: BLOOD SPECIMENOrdering Facility: [facility] Address: [address] [place] [address] Performed By: #### 2 4323-8 ####W[facility]ALIRE[facility] SAUCEDA [facility] LABCLIA [id number] [place] [address] [place] [facility] Chloride [Moles/Vol] 104 mmol/L Normal 101-111 [facility] Comment on above: Order Comment: Speci men Type: BLOOD SPECIMENOrdering Facility: [facility] Address: [address] [place] [address] Performed By: #### 2 4323-8 ####PEG [facility] LABCLIA [id number] [place] [address] [place] [facility] CO2 [Moles/Vol] 31 mmol/L Normal 21-31 [facility] Comment on above: Order Comment: Speci men Type: BLOOD SPECIMENOrdering Facility: [facility] Address: [address] [place] [address] Performed By: #### 2 4323-8 ####[facility] A[facility]ay LABCLIA [id number] [place] [address] [place] [facility] Creatinine [Mass/Vol] 1.01 mg/dL Normal 0.60-1.30 [facility] Comment on above: Order Comment: Speci men Type: BLOOD SPECIMENOrdering Facility: [facility] Address: [address] [place] [address] Result Comment: Use of this assay is not recommended for patients undergoing treatment with phenindione, due to the potential for falsely depressed results. Performed By: #### 2 4323-8 ####[facility] LABCLIA [id number] [place] [address] [facility] ESTIMATED GLOMERULAR FILTRATION RATE 72 mL/min/1.73m??? Normal >=60 [facility] Comment on above: Order Comment: Speci men Type: BLOOD SPECIMENOrdering Facility: [facility] Address: [address] [place] [address] Result Comment: Concepción mated Glomerular Filtration Rate [...] actual GFR. Performed By: #### 2 4323-8 ####[facility] LABIA [id number] [place] [address] [place] Glucose [Mass/Vol] 126 mg/dL High 74-99 [facility] Comment on above: Order Comment: Elfego gilbert Type: BLOOD SPECIMENOrdering Facility: [facility] Address: [address] [place] [address] Result Comment: The [place] Diabetes Association (ADA) provides guidance for cutoff [...] Standards of Medical Care in Diabetes 2016, [place] Diabetes [employer]. Diabetes Care. 2016.39(Suppl 1). Performed By: #### 2 4323-8 ####[facility] LABCLIA [id number] [place] [address] [place] Potassium [Moles/Vol] 4.0 mmol/L Normal 3.6-5.1 [facility] Comment on above: Order Comment: Elfego gilbert Type: BLOOD SPECIMENOrdering Facility: [facility] Address: [address] [place], [place] [address] Performed By: #### 2 4323-8 ####WYALIREZA [employer] LABCLIA [id number] [place] [address] [place] Protein [Mass/Vol] 5.6 g/dL Low 6.4-8.9 [facility] Comment on above: Order Comment: Speci men Type: BLOOD SPECIMENOrdering Facility: [facility] Address: [address] [place] [address] Performed By: #### 2 4323-8 ####PEG YANG LABCLIA [id number] [place] [address] [place] Sodium [Moles/Vol] 140 mmol/L Normal 136-144 [facility] Comment on above: Order Comment: Speci men Type: BLOOD SPECIMENOrdering Facility: [facility] Address: [address] [place] [address] Performed By: #### 2 4323-8 ####PEG YANG LABCLIA [id number] [address] [place] Urea nitrogen [Mass/Vol] 26 mg/dL High 7-25 [facility] Comment on above: Order Comment: Speci men Type: BLOOD SPECIMENOrdering Facility: [facility] Address: [address] [place] [address] Performed By: #### 2 4323-8 ####PEG YANG LABCLIA [id number] [place] [address] [place] Albumin [Mass/Vol] 3.5 g/dL 3.5 - 5.7 g/dL [facility] ALP [Catalytic activity/Vol] 75 U/L 34 - 104 U/L [facility] ALT [Catalytic activity/Vol] 27 U/L 7 - 52 U/L [facility] Anion gap [Moles/Vol] 5 mmol/L Low 9 - 18 mmol/L [facility] AST [Catalytic activity/Vol] 24 U/L 13 - 39 U/L [facility] Bilirubin [Mass/Vol] 0.8 mg/dL 0.3 - 1 .0 mg/dL [facility] Calcium [Mass/Vol] 8.6 mg/dL 8.6 - 10. 3 mg/dL [facility] Chloride [Moles/Vol] 104 mmol/L 101 - 1 11 mmol/L [facility] CO2 [Moles/Vol] 31 mmol/L 21 - 31 mmol/L [facility] Creatinine [Mass/Vol] 1.01 mg/dL 0.60 - 1.30 mg/dL [facility] Estimated Glomerular Filtration Rate 72 mL/min/1.73m >=60 mL/min/1.7 3m [facility] Glucose [Mass/Vol] 126 mg/dL High 74 - 99 mg/dL [facility] Potassium [Moles/Vol] 4.0 mmol/L 3.6 - 5.1 mmol/L [facility] Protein [Mass/Vol] 5.6 g/dL Low 6.4 - 8.9 g/dL [facility] Sodium [Moles/Vol] 140 mmol/L 136 - 144 mmol/L [facility] Urea nitrogen [Mass/Vol] 26 mg/dL High 7 - 25 mg/dL [facility] CBC W Auto Differential pane l (Bld)on 02-09-2023 Basophils (Bld) [#/Vol] 0.21 10*3/uL High <0.11 [facility] Comment on above: Order Comment: Speci men Type: BLOOD SPECIMENOrdering Facility: [facility] Address: [address] [place] [address] Performed By: #### 5 7021-8 ####[employer] GREEN LABCLIA [id number] [place] [address] [place] Basophils/100 WBC (Bld) 5.8 % Normal [facility] Comment on above: Order Comment: Speci men Type: BLOOD SPECIMENOrdering Facility: [facility] Address: [address] [place] [address] Performed By: #### 5 7021-8 ####[employer] GREEN LABCLIA [id number] [place] [address] [place] Differential cell count method Nom (Bld) Auto Normal [facility] Comment on above: Order Comment: Speci men Type: BLOOD SPECIMENOrdering Facility: [facility] Address: [address] [place] [address] Performed By: #### 5 7021-8 ####[facility] LABCLIA [id number] [place] [address] [place] Eosinophils (Bld) [#/Vol] 0.07 10*3/uL Normal <0.46 [facility] Comment on above: Order Comment: Speci men Type: BLOOD SPECIMENOrdering Facility: [facility] Address: [address] [place] [address] Performed By: #### 5 7021-8 ####PEG SAUCEDA GREEN LABCLIA [id number] [place] [address] [facility] Eosinophils/100 WBC (Bld) 1.9 % Normal [facility] Comment on above: Order Comment: Speci men Type: BLOOD SPECIMENOrdering Facility: [facility] Address: [address] [place] [address] Performed By: #### 5 7021-8 ####PEG YANG LABCLIA [id number] [place] [address] [place] Erythrocyte distribution width (RBC) [Ratio] 19.0 % High 11.5-15.0 [facility] Comment on above: Order Comment: Speci men Type: BLOOD SPECIMENOrdering Facility: [facility] Address: [address] [place] [address] Performed By: #### 5 7021-8 ####PEG YANG LABCLIA [id number] [place] [address] [facility] OF [place] Hematocrit (Bld) [Volume fraction] 27.5 % Low 39.0-51.0 [facility] Comment on above: Order Comment: Speci men Type: BLOOD SPECIMENOrdering Facility: [facility] Address: [address] [place] [address] Performed By: #### 5 7021-8 ####PEG SAUCEDA GREEN LABCLIA [id number] [place] [address] [facility] [place] Hemoglobin (Bld) [Mass/Vol] 8.6 g/dL Low 13.0-17.0 [facility] Comment on above: Order Comment: Speci men Type: BLOOD SPECIMENOrdering Facility: [facility] Address: [address] [place] [address] Performed By: #### 5 7021-8 ####PEG GENERAL GREEN LABCLIA [id number] [place] [address] [place] Immature granulocytes (Bld) [#/Vol] 10*3/uL Normal <0.10 [facility] Comment on above: Order Comment: Speci men Type: BLOOD SPECIMENOrdering Facility: [facility] Address: [address] [place] [address] Performed By: #### 5 7021-8 ####[facility] LABCLIA [id number] [address] [place] Immature granulocytes/100 WBC (Bld) 0.3 % Normal [facility] Comment on above: Order Comment: Speci men Type: BLOOD SPECIMENOrdering Facility: [facility] Address: [address] [address] Performed By: #### 5 7021-8 ####[facility] LABCLIA [id number] [place] [address] [place] Lymphocytes (Bld) [#/Vol] 0.90 10*3/uL Low 1.00-4.00 [facility] Comment on above: Order Comment: Speci men Type: BLOOD SPECIMENOrdering Facility: [facility] Address: [address] [address] Performed By: #### 5 7021-8 ####[facility] LABCLIA [id number] [place] [address] [place] Lymphocytes/100 WBC (Bld) 24.9 % Normal [facility] Comment on above: Order Comment: Speci men Type: BLOOD SPECIMENOrdering Facility: [facility] Address: [address] [place] [address] Performed By: #### 5 7021-8 ####[facility] LABCLIA [id number] [address] [place] MCH (RBC) [Entitic mass] 36.0 pg High 26.0-34.0 [facility] Comment on above: Order Comment: Speci men Type: BLOOD SPECIMENOrdering Facility: [facility] Address: [address] [place] [address] Performed By: #### 5 7021-8 ####[facility] LABCLIA [id number] [place] [address] [facility] OF [place] MCHC (RBC) [Mass/Vol] 31.3 g/dL Normal 30.5-36.0 [facility] Comment on above: Order Comment: Speci men Type: BLOOD SPECIMENOrdering Facility: [facility] Address: [address] [place] [address] Performed By: #### 5 7021-8 ####[facility] LABCLIA [id number] [address] OF [place] MCV (RBC) [Entitic vol] 115.1 fL High 80.0-100.0 [facility] Comment on above: Order Comment: Speci men Type: BLOOD SPECIMENOrdering Facility: [facility] Address: [address] [place] [address] Performed By: #### 5 7021-8 ####[facility] LABCLIA [id number] [place] [address] [place] Monocytes (Bld) [#/Vol] 0.17 10*3/uL Normal <0.87 [facility] Comment on above: Order Comment: Speci men Type: BLOOD SPECIMENOrdering Facility: [facility] Address: [address] [place] [address] Performed By: #### 5 7021-8 ####[facility] LABCLIA [id number] [place] [address] [facility] [place] Monocytes/100 WBC (Bld) 4.7 % Normal [facility] Comment on above: Order Comment: Speci men Type: BLOOD SPECIMENOrdering Facility: [facility] Address: [address] [address] Performed By: #### 5 7021-8 ####[facility] LABCLIA [id number] [place] [address] [place] Neutrophils (Bld) [#/Vol] 2.26 10*3/uL Normal 1.45-7.50 [facility] Comment on above: Order Comment: Speci men Type: BLOOD SPECIMENOrdering Facility: [facility] Address: [address] [place] [address] Performed By: #### 5 7021-8 ####[facility] LABCLIA [id number] [place] [address] [place] Neutrophils/100 WBC (Bld) 62.4 % Normal [facility] Comment on above: Order Comment: Speci men Type: BLOOD SPECIMENOrdering Facility: [facility] Address: [address] [place] [address] Performed By: #### 5 7021-8 ####[facility] LABCLIA [id number] [place] [address] [place] Nucleated RBC (Bld) [#/Vol] Normal [facility] Comment on above: Order Comment: Speci men Type: BLOOD SPECIMENOrdering Facility: [facility] Address: [address] [place] [address] Performed By: #### 5 7021-8 ####[facility] LABCLIA [id number] [place] [address] [place] Nucleated RBC/100 WBC (Bld) [Ratio] Normal [facility] Comment on above: Order Comment: Speci men Type: BLOOD SPECIMENOrdering Facility: [facility] Address: [address] [place] [address] Performed By: #### 5 7021-8 ####[facility] LABCLIA [id number] [place] [address] [place] Platelet mean volume (Bld) [Entitic vol] 11.2 fL Normal 9.0-12.7 [facility] Comment on above: Order Comment: Speci men Type: BLOOD SPECIMENOrdering Facility: [facility] Address: [address] [place] [address] Performed By: #### 5 7021-8 ####[facility] A[facility] LABCLIA [id number] [place] [address] [facility] [place] Platelets (Bld) [#/Vol] 289 10*3/uL Normal 150-400 [facility] Comment on above: Order Comment: Speci men Type: BLOOD SPECIMENOrdering Facility: [facility] Address: [address] [place] [address] Performed By: #### 5 7021-8 ####WYALIREZA SAUCEDA [facility] LABCLIA [id number] [place] [address] [place] RBC (Bld) [#/Vol] 2.39 10*6/uL Low 4.20-6.00 [facility] Comment on above: Order Comment: Speci men Type: BLOOD SPECIMENOrdering Facility: [facility] Address: [address] [place] [address] Performed By: #### 5 7021-8 ####WY[facility]IREZA SAUCEDA A[facility] LABCLIA [id number] [address] [address] [place] WBC (Bld) [#/Vol] 3.62 10*3/uL Low 3.70-11.00 [facility] Comment on above: Order Comment: Speci men Type: BLOOD SPECIMENOrdering Facility: [facility] Address: [address] [place] [address] Performed By: #### 5 7021-8 ####[facility] A[facility] LABCLIA [id number] [place] [address] [place] Basophils (Bld) [#/Vol] 0.21 10*3/uL High <0.11 k/uL [facility] Basophils/100 WBC (Bld) 5.8 % [facility] Differential cell count method Nom (Bld) Auto [facility] Eosinophils (Bld) [#/Vol] 0.07 10*3/uL <0.46 k/uL [facility] Eosinophils/100 WBC (Bld) 1.9 % [facility] Erythrocyte distribution width (RBC) [Ratio] 19.0 % High 11.5 - 15.0 % [facility] Hematocrit (Bld) [Volume fraction] 27.5 % Low 39.0 - 51.0 % [facility] Hemoglobin (Bld) [Mass/Vol] 8.6 g/dL Low 13.0 - 17.0 g/dL [facility] Immature granulocytes (Bld) [#/Vol] <0.10 k/uL [facility] Immature granulocytes/100 WBC (Bld) 0.3 % [facility] Lymphocytes (Bld) [#/Vol] 0.90 10*3/uL Low 1.00 - 4.00 k/uL [facility] Lymphocytes/100 WBC (Bld) 24.9 % [facility] MCH (RBC) [Entitic mass] 36.0 pg High 26.0 - 34.0 pg [facility] MCHC (RBC) [Mass/Vol] 31.3 g/dL 30.5 - 36.0 g/dL [facility] MCV (RBC) [Entitic vol] 115.1 fL High 80.0 - 100.0 fL [facility] Monocytes (Bld) [#/Vol] 0.17 10*3/uL <0.87 k/uL [facility] Monocytes/100 WBC (Bld) 4.7 % [facility] Neutrophils (Bld) [#/Vol] 2.26 10*3/uL 1.45 - 7.50 k/uL [facility] Neutrophils/100 WBC (Bld) 62.4 % [facility] Nucleated RBC (Bld) [#/Vol] [facility] Nucleated RBC/100 WBC (Bld) [Ratio] [facility] Platelet mean volume (Bld) [Entitic vol] 11.2 fL 9.0 - 12.7 fL [facility] Platelets (Bld) [#/Vol] 289 10*3/uL 150 - 400 k/uL [facility] RBC (Bld) [#/Vol] 2.39 10*6/uL Low 4.20 - 6.00 m/uL [facility] WBC (Bld) [#/Vol] 3.62 10*3/uL Low 3.70 - 11.00 k/uL [facility] Comprehensive metabolic 2000 panelon 02-09-2023 Albumin [Mass/Vol] 3.5 g/dL Normal 3.5-5.7 [facility] Comment on above: Order Comment: Speci men Type: BLOOD SPECIMENOrdering Facility: [facility] Address: [address] [place] [address] Performed By: #### 2 4323-8 ####[employer] LABCLIA [id number] [address] ALP [Catalytic activity/Vol] 58 U/L Normal 34-104 [facility] Comment on above: Order Comment: Speci men Type: BLOOD SPECIMENOrdering Facility: [facility] Address: [address] [place] [address] Performed By: #### 2 4323-8 ####[facility] LABCLIA [id number] [address] ALT [Catalytic activity/Vol] 22 U/L Normal 7-52 [facility] Comment on above: Order Comment: Speci men Type: BLOOD SPECIMENOrdering Facility: [facility] Address: [address] [place] [address] Performed By: #### 2 4323-8 ####[employer] LABCLIA [id number] [place] [address] [facility] Anion gap [Moles/Vol] 3 mmol/L Low 9-18 [facility] Comment on above: Order Comment: Speci men Type: BLOOD SPECIMENOrdering Facility: [facility] Address: [address] [place] [address] Performed By: #### 2 4323-8 ####[facility] A[facility]ay LABCLIA [id number] [place] [address] [place] AST [Catalytic activity/Vol] 21 U/L Normal 13-39 [facility] Comment on above: Order Comment: Speci men Type: BLOOD SPECIMENOrdering Facility: [facility] Address: [address] [place] [address] Performed By: #### 2 4323-8 ####[facility] LABCLIA [id number] [address] [address] [place] Bilirubin [Mass/Vol] 1.0 mg/dL Normal 0.3-1.0 [facility] Comment on above: Order Comment: Speci men Type: BLOOD SPECIMENOrdering Facility: [facility] Address: [address] [place] [address] Result Comment: Use of this assay is not recommended for patients undergoing treatment with eltrombopag due to the potential for falsely elevated results. Performed By: #### 2 4323-8 ####BELLOALIREZA [facility] GREEN LABCLIA [id number] [address] [address] [place] Calcium [Mass/Vol] 8.6 mg/dL Normal 8.6-10.3 [facility] Comment on above: Order Comment: Speci men Type: BLOOD SPECIMENOrdering Facility: [facility] Address: [address] [place] [address] Performed By: #### 2 4323-8 ####WYALIREZA [facility] GREEN LABCLIA [id number] [address] [address] [place] Chloride [Moles/Vol] 103 mmol/L Normal 101-111 [facility] Comment on above: Order Comment: Speci men Type: BLOOD SPECIMENOrdering Facility: [facility] Address: [address] [place] [address] Performed By: #### 2 4323-8 ####WYALIREZA SAUC[facility] GREEN LABCLIA [id number] [place] [address] [place] CO2 [Moles/Vol] 30 mmol/L Normal 21-31 [facility] Comment on above: Order Comment: Speci men Type: BLOOD SPECIMENOrdering Facility: [facility] Address: [address] [address] Performed By: #### 2 4323-8 ####[facility] LABCLIA [id number] [place] [address] [place] Creatinine [Mass/Vol] 1.04 mg/dL Normal 0.60-1.30 [facility] Comment on above: Order Comment: Speci men Type: BLOOD SPECIMENOrdering Facility: [facility] Address: [address] [address] Result Comment: Use of this assay is not recommended for patients undergoing treatment with phenindione, due to the potential for falsely depressed results. Performed By: #### 2 4323-8 ####PEG SAUCEDA MOULTON LABCLIA [id number] [address] STATES OF [facility] ESTIMATED GLOMERULAR FILTRATION RATE 69 mL/min/1.73m??? Normal >=60 [facility] Comment on above: Order Comment: Speci vladimir Type: BLOOD SPECIMENOrdering Facility: [facility] Address: [address] [address] Result Comment: Concepción mated Glomerular Filtration Rate [...] actual GFR. Performed By: #### 2 4323-8 ####[facility] LABIA [id number] [place] [address] [place] Glucose [Mass/Vol] 160 mg/dL High 74-99 [facility] Comment on above: Order Comment: Speci vladimir Type: BLOOD SPECIMENOrdering Facility: [facility] Address: [address] [address] Result Comment: The [place] Diabetes Association (ADA) provides guidance for cutoff [...] Standards of Medical Care in Diabetes 2016, [place] [employer]. Diabetes Care. 2016.39(Suppl 1). Performed By: #### 2 4323-8 ####[employer] LABCLIA [id number] [place] [address] [place] Potassium [Moles/Vol] 4.0 mmol/L Normal 3.6-5.1 [facility] Comment on above: Order Comment: Speci men Type: BLOOD SPECIMENOrdering Facility: [facility] Address: [address] [place] [address] Performed By: #### 2 4323-8 ####[facility] LABIA [id number] [place] [address] [place] Protein [Mass/Vol] 5.4 g/dL Low 6.4-8.9 [facility] Comment on above: Order Comment: Speci men Type: BLOOD SPECIMENOrdering Facility: [facility] Address: [address] [place] [address] Performed By: #### 2 4323-8 ####[facility] LABCLIA [id number] [place] [address] [place] Sodium [Moles/Vol] 136 mmol/L Normal 136-144 [facility] Comment on above: Order Comment: Speci men Type: BLOOD SPECIMENOrdering Facility: [facility] Address: [address] [address] Performed By: #### 2 4323-8 ####[employer] LABCLIA [id number] [place] [address] [place] Urea nitrogen [Mass/Vol] 23 mg/dL Normal 7-25 [facility] Comment on above: Order Comment: Speci men Type: BLOOD SPECIMENOrdering Facility: [facility] Address: [place] [address] Performed By: #### 2 4323-8 ####[facility] LABCLIA [id number] [place] [address] [place] Albumin [Mass/Vol] 3.5 g/dL 3.5 - 5.7 g/dL [facility] ALP [Catalytic activity/Vol] 58 U/L 34 - 104 U/L [facility] ALT [Catalytic activity/Vol] 22 U/L 7 - 52 U/L [facility] Anion gap [Moles/Vol] 3 mmol/L Low 9 - 18 mmol/L [facility] AST [Catalytic activity/Vol] 21 U/L 13 - 39 U/L [facility] Bilirubin [Mass/Vol] 1.0 mg/dL 0.3 - 1 .0 mg/dL [facility] Calcium [Mass/Vol] 8.6 mg/dL 8.6 - 10. 3 mg/dL [facility] Chloride [Moles/Vol] 103 mmol/L 101 - 1 11 mmol/L [facility] CO2 [Moles/Vol] 30 mmol/L 21 - 31 mmol/L [facility] Creatinine [Mass/Vol] 1.04 mg/dL 0.60 - 1.30 mg/dL [facility] Estimated Glomerular Filtration Rate 69 mL/min/1.73m >=60 mL/min/1.7 3m [facility] Glucose [Mass/Vol] 160 mg/dL High 74 - 99 mg/dL [facility] Potassium [Moles/Vol] 4.0 mmol/L 3.6 - 5.1 mmol/L [facility] Protein [Mass/Vol] 5.4 g/dL Low 6.4 - 8.9 g/dL [facility] Sodium [Moles/Vol] 136 mmol/L 136 - 144 mmol/L [facility] Urea nitrogen [Mass/Vol] 23 mg/dL 7 - 25 mg/dL [facility] CBC W Auto Differential pane l (Bld)on 02-04-2023 Basophils (Bld) [#/Vol] 0.07 10*3/uL Normal <0.11 [facility] Comment on above: Order Comment: Speci men Type: BLOOD SPECIMENOrdering Facility: [facility] Address: [address] [place] [address] Performed By: #### 5 7021-8 ####[facility] LABCLIA [id number] [place] [address] [place] Basophils/100 WBC (Bld) 2.7 % Normal [facility] Comment on above: Order Comment: Speci men Type: BLOOD SPECIMENOrdering Facility: [facility] Address: [address] [place] [address] Performed By: #### 5 7021-8 ####[facility] LABCLIA [id number] [place] [address] [place] Differential cell count method Nom (Bld) Auto Normal [facility] Comment on above: Order Comment: Speci men Type: BLOOD SPECIMENOrdering Facility: [facility] Address: [address] [place] [address] Performed By: #### 5 7021-8 ####[facility] LABCLIA [id number] [place] [address] [place] Eosinophils (Bld) [#/Vol] 0.05 10*3/uL Normal <0.46 [facility] Comment on above: Order Comment: Speci men Type: BLOOD SPECIMENOrdering Facility: [facility] Address: [address] [place] [address] Performed By: #### 5 7021-8 ####[facility] LABCLIA [id number] [address] [place] Eosinophils/100 WBC (Bld) 2.0 % Normal [facility] Comment on above: Order Comment: Speci men Type: BLOOD SPECIMENOrdering Facility: [facility] Address: [address] [place] [address] Performed By: #### 5 7021-8 ####[facility]UC[facility] GREEN LABCLIA [id number] [place] [address] [place] Erythrocyte distribution width (RBC) [Ratio] 19.4 % High 11.5-15.0 [facility] Comment on above: Order Comment: Speci men Type: BLOOD SPECIMENOrdering Facility: [facility] Address: [address] [place] [address] Performed By: #### 5 7021-8 ####[facility] LABCLIA [id number] [place] [address] [place] Hematocrit (Bld) [Volume fraction] 28.7 % Low 39.0-51.0 [facility] Comment on above: Order Comment: Speci men Type: BLOOD SPECIMENOrdering Facility: [facility] Address: [address] [place] [address] Performed By: #### 5 7021-8 ####[facility] LABCLIA [id number] [address] [place] Hemoglobin (Bld) [Mass/Vol] 9.2 g/dL Low 13.0-17.0 [facility] Comment on above: Order Comment: Speci men Type: BLOOD SPECIMENOrdering Facility: [facility] Address: [address] [place] [address] Performed By: #### 5 7021-8 ####WYALIREZA SAUCEDA [facility] LABCLIA [id number] [place] [address] [place] Immature granulocytes (Bld) [#/Vol] 10*3/uL Normal <0.10 [facility] Comment on above: Order Comment: Speci men Type: BLOOD SPECIMENOrdering Facility: [facility] Address: [address] [place] [address] Performed By: #### 5 7021-8 ####[place] [employer] LABCLIA [id number] [place] [address] [place] Immature granulocytes/100 WBC (Bld) 0.4 % Normal [facility] Comment on above: Order Comment: Speci men Type: BLOOD SPECIMENOrdering Facility: [facility] Address: [address] [place] [address] Performed By: #### 5 7021-8 ####WYALIREZA SAUCEDA GREEN LABCLIA [id number] [place] [address] [place] Lymphocytes (Bld) [#/Vol] 0.90 10*3/uL Low 1.00-4.00 [facility] Comment on above: Order Comment: Speci men Type: BLOOD SPECIMENOrdering Facility: [facility] Address: [address] [place] [address] Performed By: #### 5 7021-8 ####[facility] [employer] LABCLIA [id number] [address] [place] Lymphocytes/100 WBC (Bld) 35.3 % Normal [facility] Comment on above: Order Comment: Speci men Type: BLOOD SPECIMENOrdering Facility: [facility] Address: [address] [place] [address] Performed By: #### 5 7021-8 ####[facility] LABCLIA [id number] [place] [address] [place] MCH (RBC) [Entitic mass] 37.9 pg High 26.0-34.0 [facility] Comment on above: Order Comment: Speci men Type: BLOOD SPECIMENOrdering Facility: [facility] Address: [address] [place] [address] Performed By: #### 5 7021-8 ####[facility] [employer] LABCLIA [id number] [place] [address] [place] MCHC (RBC) [Mass/Vol] 32.1 g/dL Normal 30.5-36.0 [facility] Comment on above: Order Comment: Speci men Type: BLOOD SPECIMENOrdering Facility: [facility] Address: [address] [address] Performed By: #### 5 7021-8 ####[facility] LABCLIA [id number] [place] [address] [place] MCV (RBC) [Entitic vol] 118.1 fL High 80.0-100.0 [facility] Comment on above: Order Comment: Speci men Type: BLOOD SPECIMENOrdering Facility: [facility] Address: [address] [address] Performed By: #### 5 7021-8 ####[facility] LABCLIA [id number] [place] [address] [place] Monocytes (Bld) [#/Vol] 0.19 10*3/uL Normal <0.87 [facility] Comment on above: Order Comment: Speci men Type: BLOOD SPECIMENOrdering Facility: [facility] Address: [address] [address] Performed By: #### 5 7021-8 ####[facility] LABCLIA [id number] [place] [address] [place] Monocytes/100 WBC (Bld) 7.5 % Normal [facility] Comment on above: Order Comment: Speci men Type: BLOOD SPECIMENOrdering Facility: [facility] Address: [address] [place] [address] Performed By: #### 5 7021-8 ####[facility] [employer] LABCLIA [id number] [place] [address] [place] Neutrophils (Bld) [#/Vol] 1.33 10*3/uL Low 1.45-7.50 [facility] Comment on above: Order Comment: Speci men Type: BLOOD SPECIMENOrdering Facility: [facility] Address: [address] [place] [address] Performed By: #### 5 7021-8 ####[facility] [employer] LABCLIA [id number] [place] [address] [place] Neutrophils/100 WBC (Bld) 52.1 % Normal [facility] Comment on above: Order Comment: Speci men Type: BLOOD SPECIMENOrdering Facility: [facility] Address: [address] [place] [address] Performed By: #### 5 7021-8 ####[facility] GRE[facility] LABCLIA [id number] [place] [address] [place] Nucleated RBC (Bld) [#/Vol] Normal [facility] Comment on above: Order Comment: Speci men Type: BLOOD SPECIMENOrdering Facility: [facility] Address: [address] [place] [address] Performed By: #### 5 7021-8 ####[facility] GRE[facility] LABCLIA [id number] [place] [address] [place] Nucleated RBC/100 WBC (Bld) [Ratio] Normal [facility] Comment on above: Order Comment: Speci men Type: BLOOD SPECIMENOrdering Facility: [facility] Address: [address] [place] [address] Performed By: #### 5 7021-8 ####[facility] GRE[facility] LABCLIA [id number] [place] [address] [place] Platelet mean volume (Bld) [Entitic vol] 12.2 fL Normal 9.0-12.7 [facility] Comment on above: Order Comment: Speci men Type: BLOOD SPECIMENOrdering Facility: [facility] Address: [address] [address] Performed By: #### 5 7021-8 ####WYALIREZA SAUCEDA GREEN LABCLIA [id number] [place] [address] [place] Platelets (Bld) [#/Vol] 173 10*3/uL Normal 150-400 [facility] Comment on above: Order Comment: Speci men Type: BLOOD SPECIMENOrdering Facility: [facility] Address: [address] [address] Performed By: #### 5 7021-8 ####WYALIREZA YANG LABCLIA [id number] [place] [address] [place] RBC (Bld) [#/Vol] 2.43 10*6/uL Low 4.20-6.00 [facility] Comment on above: Order Comment: Speci men Type: BLOOD SPECIMENOrdering Facility: [facility] Address: [address] [address] Performed By: #### 5 7021-8 ####[facility] LABCLIA [id number] [place] [address] [facility] WBC (Bld) [#/Vol] 2.55 10*3/uL Low 3.70-11.00 [facility] Comment on above: Order Comment: Speci men Type: BLOOD SPECIMENOrdering Facility: [facility] Address: [address] [place] [address] Performed By: #### 5 7021-8 ####[place] [facility] LABCLIA [id number] [place] [address] [facility] CNOVSPon 02-04-2023 CNOVSP Normal [facility] Comprehensive metabolic 2000 panelon 02-04-2023 Albumin [Mass/Vol] 3.7 g/dL Normal 3.5-5.7 [facility] Comment on above: Order Comment: Speci men Type: BLOOD SPECIMENOrdering Facility: [facility] Address: [address] [address] Performed By: #### 2 4323-8 ####[facility] DICK[place] LABCLIA [id number] [place] [address] [facility] ALP [Catalytic activity/Vol] 68 U/L Normal 34-104 [facility] Comment on above: Order Comment: Speci men Type: BLOOD SPECIMENOrdering Facility: [facility] Address: [address] [place] [address] Performed By: #### 2 4323-8 ####PEG SAUCEDA GREEN LABCLIA [id number] [place] [address] [place] ALT [Catalytic activity/Vol] 27 U/L Normal 7-52 [facility] Comment on above: Order Comment: Speci men Type: BLOOD SPECIMENOrdering Facility: [facility] Address: [address] [place] [address] Performed By: #### 2 4323-8 ####PEG [facility] LABCLIA [id number] [place] [address] [place] Anion gap [Moles/Vol] 6 mmol/L Low 9-18 [facility] Comment on above: Order Comment: Speci men Type: BLOOD SPECIMENOrdering Facility: [facility] Address: [address] [place] [address] Performed By: #### 2 4323-8 ####[facility] [employer] LABCLIA [id number] [address] AST [Catalytic activity/Vol] 22 U/L Normal 13-39 [facility] Comment on above: Order Comment: Speci men Type: BLOOD SPECIMENOrdering Facility: [facility] Address: [address] [place] [address] Performed By: #### 2 4323-8 ####[facility] [employer] LABCLIA [id number] [place] [address] [place] Bilirubin [Mass/Vol] 1.0 mg/dL Normal 0.3-1.0 [facility] Comment on above: Order Comment: Speci men Type: BLOOD SPECIMENOrdering Facility: [facility] Address: [address] [place] [address] Result Comment: Use of this assay is not recommended for patients undergoing treatment with eltrombopag due to the potential for falsely elevated results. Performed By: #### 2 4323-8 ####[place] [employer] GREEN LABCLIA [id number] [place] [address] [place] [facility] Calcium [Mass/Vol] 8.7 mg/dL Normal 8.6-10.3 [facility] Comment on above: Order Comment: Speci men Type: BLOOD SPECIMENOrdering Facility: [facility] Address: [address] [place] [address] Performed By: #### 2 4323-8 ####[facility] [employer] LABCLIA [id number] [place] [address] [place] Chloride [Moles/Vol] 104 mmol/L Normal 101-111 [facility] Comment on above: Order Comment: Speci men Type: BLOOD SPECIMENOrdering Facility: [facility] Address: [address] [place] [address] Performed By: #### 2 4323-8 ####[facility] LABCLIA [id number] [address] [place] CO2 [Moles/Vol] 31 mmol/L Normal 21-31 [facility] Comment on above: Order Comment: Speci men Type: BLOOD SPECIMENOrdering Facility: [facility] Address: [address] [place] [address] Performed By: #### 2 4323-8 ####[facility] [employer] LABCLIA [id number] [place] [address] [place] Creatinine [Mass/Vol] 1.15 mg/dL Normal 0.60-1.30 [facility] Comment on above: Order Comment: Speci men Type: BLOOD SPECIMENOrdering Facility: [facility] Address: [address] [place] [address] Result Comment: Use of this assay is not recommended for patients undergoing treatment with phenindione, due to the potential for falsely depressed results. Performed By: #### 2 4323-8 ####[facility] [employer] LABCLIA [id number] [place] [address] [place] ESTIMATED GLOMERULAR FILTRATION RATE 62 mL/min/1.73m??? Normal >=60 [facility] Comment on above: Order Comment: Speci men Type: BLOOD SPECIMENOrdering Facility: [facility] Address: [address] Result Comment: Concepción mated Glomerular Filtration Rate [...] actual GFR. Performed By: #### 2 4323-8 ####[facility] [employer] SoftwareIA [id number] [place] [address] [place] Glucose [Mass/Vol] 109 mg/dL High 74-99 [facility] Comment on above: Order Comment: Elfego gilbert Type: BLOOD SPECIMENOrdering Facility: [facility] Address: [address] [place] [address] Result Comment: The [place] Diabetes Association (ADA) provides guidance for cutoff [...] Standards of Medical Care in Diabetes 2016, [place] Diabetes Association. Diabetes Care. 2016.39(Suppl 1). Performed By: #### 2 4323-8 ####[facility] LABIA [id number] [place] [address] [place] Potassium [Moles/Vol] 4.4 mmol/L Normal 3.6-5.1 [facility] Comment on above: Order Comment: Elfego vladimir Type: BLOOD SPECIMENOrdering Facility: [facility] Address: [address] [address] Performed By: #### 2 4323-8 ####[facility] GREEN LABCLIA [id number] [place] [address] [place] Protein [Mass/Vol] 6.0 g/dL Low 6.4-8.9 [facility] Comment on above: Order Comment: Speci men Type: BLOOD SPECIMENOrdering Facility: [facility] Address: [address] [place] [address] Performed By: #### 2 4323-8 ####[facility] GREEN LABCLIA [id number] [place] [address] [place] Sodium [Moles/Vol] 141 mmol/L Normal 136-144 [facility] Comment on above: Order Comment: Speci men Type: BLOOD SPECIMENOrdering Facility: [facility] Address: [address] [place] [address] Performed By: #### 2 4323-8 ####[facility] LABCLIA [id number] [address] [place] Urea nitrogen [Mass/Vol] 23 mg/dL Normal 7-25 [facility] Comment on above: Order Comment: Speci men Type: BLOOD SPECIMENOrdering Facility: [facility] Address: [address] [place] [address] Performed By: #### 2 4323-8 ####[facility] [employer] LABCLIA [id number] [place] [address] [place] CNOVSPon 01-14-2023 CNOVSP Normal [facility] CBC W Auto Differential pane l (Bld)on 01-12-2023 Anisocytosis Ql (Bld) Present Normal [facility] Comment on above: Order Comment: Speci men Type: BLOOD SPECIMENOrdering Facility: [facility] Address: [address] [place] [address] Performed By: #### 5 7021-8 ####[facility] GREEN LABCLIA [id number] [place] [address] [place] Basophils (Bld) [#/Vol] 0.08 10*3/uL Normal <0.11 [facility] Comment on above: Order Comment: Speci men Type: BLOOD SPECIMENOrdering Facility: [facility] Address: [address] [place] [address] Performed By: #### 5 7021-8 ####[facility] LABCLIA [id number] [place] [address] [place] Basophils/100 WBC (Bld) 4.6 % Normal [facility] Comment on above: Order Comment: Speci men Type: BLOOD SPECIMENOrdering Facility: [facility] Address: [address] [place] [address] Performed By: #### 5 7021-8 ####[facility] LABCLIA [id number] [address] [place] Differential cell count method Nom (Bld) Auto Normal [facility] Comment on above: Order Comment: Speci men Type: BLOOD SPECIMENOrdering Facility: [facility] Address: [address] [place] [address] Performed By: #### 5 7021-8 ####PEG [facility] LABCLIA [id number] [place] [address] [place] Eosinophils (Bld) [#/Vol] 10*3/uL Normal <0.46 [facility] Comment on above: Order Comment: Speci men Type: BLOOD SPECIMENOrdering Facility: [facility] Address: [address] [place] [address] Performed By: #### 5 7021-8 ####PEG [facility] LABCLIA [id number] [address] Eosinophils/100 WBC (Bld) 1.1 % Normal [facility] Comment on above: Order Comment: Speci men Type: BLOOD SPECIMENOrdering Facility: [facility] Address: [address] [place] [address] Performed By: #### 5 7021-8 ####[place] [employer] LABCLIA [id number] [place] [address] [facility] Erythrocyte distribution width (RBC) [Ratio] 19.5 % High 11.5-15.0 [facility] Comment on above: Order Comment: Speci men Type: BLOOD SPECIMENOrdering Facility: [facility] Address: [address] [place] [address] Performed By: #### 5 7021-8 ####[facility] LABCLIA [id number] [place] [address] [place] Giant platelets LM Ql (Bld) Occasional Normal [facility] Comment on above: Order Comment: Speci men Type: BLOOD SPECIMENOrdering Facility: [facility] Address: [address] [place] [address] Performed By: #### 5 7021-8 ####[facility] [employer] LABCLIA [id number] [address] [place] Hematocrit (Bld) [Volume fraction] 24.2 % Low 39.0-51.0 [facility] Comment on above: Order Comment: Speci men Type: BLOOD SPECIMENOrdering Facility: [facility] Address: [address] [place] [address] Performed By: #### 5 7021-8 ####[facility] LABCLIA [id number] [place] [address] [place] Hemoglobin (Bld) [Mass/Vol] 7.8 g/dL Low 13.0-17.0 [facility] Comment on above: Order Comment: Speci men Type: BLOOD SPECIMENOrdering Facility: [facility] Address: [address] [place] [address] Performed By: #### 5 7021-8 ####[facility] [employer] LABCLIA [id number] [place] [address] [place] Immature granulocytes (Bld) [#/Vol] 10*3/uL Normal <0.10 [facility] Comment on above: Order Comment: Speci men Type: BLOOD SPECIMENOrdering Facility: [facility] Address: [address] [place] [address] Performed By: #### 5 7021-8 ####PEG YANG LABCLIA [id number] [place] [address] [place] Immature granulocytes/100 WBC (Bld) 0.0 % Normal [facility] Comment on above: Order Comment: Speci men Type: BLOOD SPECIMENOrdering Facility: [facility] Address: [address] [place] [address] Performed By: #### 5 7021-8 ####PEG YANG LABCLIA [id number] [place] [address] [place] Lymphocytes (Bld) [#/Vol] 0.65 10*3/uL Low 1.00-4.00 [facility] Comment on above: Order Comment: Speci men Type: BLOOD SPECIMENOrdering Facility: [facility] Address: [address] [place] [address] Performed By: #### 5 7021-8 ####PEG YANG LABCLIA [id number] [place] [address] [place] Lymphocytes/100 WBC (Bld) 37.4 % Normal [facility] Comment on above: Order Comment: Speci men Type: BLOOD SPECIMENOrdering Facility: [facility] Address: [address] [place] [address] Performed By: #### 5 7021-8 ####PEG [facility] GREEN LABCLIA [id number] [place] [address] [place] MCH (RBC) [Entitic mass] 39.0 pg High 26.0-34.0 [facility] Comment on above: Order Comment: Speci men Type: BLOOD SPECIMENOrdering Facility: [facility] Address: [address] [place] [address] Performed By: #### 5 7021-8 ####WYALIREZA SAUCED[facility] GREEN LABCLIA [id number] [place] [address] [place] MCHC (RBC) [Mass/Vol] 32.2 g/dL Normal 30.5-36.0 [facility] Comment on above: Order Comment: Speci men Type: BLOOD SPECIMENOrdering Facility: [facility] Address: [address] [place] [address] Performed By: #### 5 7021-8 ####WYALIREZA [facility] LABCLIA [id number] [place] [address] [place] MCV (RBC) [Entitic vol] 121.0 fL High 80.0-100.0 [facility] Comment on above: Order Comment: Speci men Type: BLOOD SPECIMENOrdering Facility: [facility] Address: [address] [place] [address] Performed By: #### 5 7021-8 ####[facility] LABCLIA [id number] [address] [place] Monocytes (Bld) [#/Vol] 0.14 10*3/uL Normal <0.87 [facility] Comment on above: Order Comment: Speci men Type: BLOOD SPECIMENOrdering Facility: [facility] Address: [address] [place] [address] Performed By: #### 5 7021-8 ####[facility] GREEN LABCLIA [id number] [place] [address] [facility] Monocytes/100 WBC (Bld) 8.0 % Normal [facility] Comment on above: Order Comment: Speci men Type: BLOOD SPECIMENOrdering Facility: [facility] Address: [address] [place] [address] Performed By: #### 5 7021-8 ####[facility] GREEN LABCLIA [id number] [place] [address] [facility] [place] Neutrophils (Bld) [#/Vol] 0.85 10*3/uL Low 1.45-7.50 [facility] Comment on above: Order Comment: Speci men Type: BLOOD SPECIMENOrdering Facility: [facility] Address: [address] [place] [address] Performed By: #### 5 7021-8 ####PEG SA[facility] GREEN LABCLIA [id number] [place] [address] [place] Neutrophils/100 WBC (Bld) 48.9 % Normal [facility] Comment on above: Order Comment: Speci men Type: BLOOD SPECIMENOrdering Facility: [facility] Address: [address] [place] [address] Performed By: #### 5 7021-8 ####PEG [facility] GREEN LABCLIA [id number] [place] [address] [place] Nucleated RBC (Bld) [#/Vol] Normal [facility] Comment on above: Order Comment: Speci men Type: BLOOD SPECIMENOrdering Facility: [facility] Address: [address] [place] [address] Performed By: #### 5 7021-8 ####PEG [facility] GRE[facility] LABCLIA [id number] [place] [address] [place] Nucleated RBC/100 WBC (Bld) [Ratio] Normal [facility] Comment on above: Order Comment: Speci men Type: BLOOD SPECIMENOrdering Facility: [facility] Address: [address] [place] [address] Performed By: #### 5 7021-8 ####PEG [employer] [facility] LABCLIA [id number] [place] [address] [place] Platelet mean volume (Bld) [Entitic vol] 10.3 fL Normal 9.0-12.7 [facility] Comment on above: Order Comment: Speci men Type: BLOOD SPECIMENOrdering Facility: [facility] Address: [address] [place] [address] Performed By: #### 5 7021-8 ####[facility] LABCLIA [id number] [place] [address] [place] Platelets (Bld) [#/Vol] 633 10*3/uL High 150-400 [facility] Comment on above: Order Comment: Speci men Type: BLOOD SPECIMENOrdering Facility: [facility] Address: [address] [place] [address] Performed By: #### 5 7021-8 ####[facility] LABCLIA [id number] [place] [address] [place] Platelets Estimate (Bld) [#/Vol] Increased Normal [facility] Comment on above: Order Comment: Speci men Type: BLOOD SPECIMENOrdering Facility: [facility] Address: [address] [place] [address] Performed By: #### 5 7021-8 ####WYALIREZA SAUC[facility] GREEN LABCLIA [id number] [place] [address] [place] Polychromasia LM Ql (Bld) Slight Normal [facility] Comment on above: Order Comment: Speci men Type: BLOOD SPECIMENOrdering Facility: [facility] Address: [address] [place] [address] Performed By: #### 5 7021-8 ####WYALIREZA [facility]UC[facility] GREEN LABCLIA [id number] [place] [address] [place] RBC (Bld) [#/Vol] 2.00 10*6/uL Low 4.20-6.00 [facility] Comment on above: Order Comment: Speci men Type: BLOOD SPECIMENOrdering Facility: [facility] Address: [address] [place] [address] Performed By: #### 5 7021-8 ####WYALIREZA SAUCED[facility] GREEN LABCLIA [id number] [place] [address] [place] RBC FRAGMENTS Few Abnormal None Seen [facility] Comment on above: Order Comment: Speci men Type: BLOOD SPECIMENOrdering Facility: [facility] Address: [address] [place] [address] Performed By: #### 5 7021-8 ####PEG YANG LABCLIA [id number] [place] [address] [place] RED CELL MORPH Reviewed: see result s of individual morphologies Normal [facility] Comment on above: Order Comment: Speci men Type: BLOOD SPECIMENOrdering Facility: [facility] Address: [address] [place] [address] Performed By: #### 5 7021-8 ####PEG YANG LABCLIA [id number] [place] [address] [place] WBC (Bld) [#/Vol] 1.74 10*3/uL Low 3.70-11.00 [facility] Comment on above: Order Comment: Speci men Type: BLOOD SPECIMENOrdering Facility: [facility] Address: [address] [place] [address] Performed By: #### 5 7021-8 ####WYALIREZA YANG LABCLIA [id number] [address] [place] Anisocytosis Ql (Bld) Present [facility] Basophils (Bld) [#/Vol] 0.08 10*3/uL <0.11 k/uL [facility] Basophils/100 WBC (Bld) 4.6 % [facility] Differential cell count method Nom (Bld) Auto [facility] Eosinophils (Bld) [#/Vol] <0.46 k/uL [facility] Eosinophils/100 WBC (Bld) 1.1 % [facility] Erythrocyte distribution width (RBC) [Ratio] 19.5 % High 11.5 - 15.0 % [facility] Giant platelets LM Ql (Bld) Occasional [facility] Hematocrit (Bld) [Volume fraction] 24.2 % Low 39.0 - 51.0 % [facility] Hemoglobin (Bld) [Mass/Vol] 7.8 g/dL Low 13.0 - 17.0 g/dL [facility] Immature granulocytes (Bld) [#/Vol] <0.10 k/uL [facility] Immature granulocytes/100 WBC (Bld) 0.0 % [facility] Lymphocytes (Bld) [#/Vol] 0.65 10*3/uL Low 1.00 - 4.00 k/uL [facility] Lymphocytes/100 WBC (Bld) 37.4 % [facility] MCH (RBC) [Entitic mass] 39.0 pg High 26.0 - 34.0 pg [facility] MCHC (RBC) [Mass/Vol] 32.2 g/dL 30.5 - 36.0 g/dL [facility] MCV (RBC) [Entitic vol] 121.0 fL High 80.0 - 100.0 fL [facility] Monocytes (Bld) [#/Vol] 0.14 10*3/uL <0.87 k/uL [facility] Monocytes/100 WBC (Bld) 8.0 % [facility] Neutrophils (Bld) [#/Vol] 0.85 10*3/uL Low 1.45 - 7.50 k/uL [facility] Neutrophils/100 WBC (Bld) 48.9 % [facility] Nucleated RBC (Bld) [#/Vol] [facility] Nucleated RBC/100 WBC (Bld) [Ratio] [facility] Platelet mean volume (Bld) [Entitic vol] 10.3 fL 9.0 - 12.7 fL [facility] Platelets (Bld) [#/Vol] 633 10*3/uL High 150 - 400 k/uL [facility] Platelets Estimate (Bld) [#/Vol] Increased [facility] Polychromasia LM Ql (Bld) Slight [facility] RBC (Bld) [#/Vol] 2.00 10*6/uL Low 4.20 - 6.00 m/uL [facility] RBC Fragments Few Abnormal None Seen [facility] Red Cell Morph Reviewed: see result s of individual morphologies [facility] WBC (Bld) [#/Vol] 1.74 10*3/uL Low 3.70 - 11.00 k/uL [facility] Comprehensive metabolic 2000 panelon 01-12-2023 Albumin [Mass/Vol] 3.6 g/dL Normal 3.5-5.7 [facility] Comment on above: Order Comment: Speci men Type: BLOOD SPECIMENOrdering Facility: [facility] Address: [address] [place] [address] Performed By: #### 2 4323-8 ####[facility] LABCLIA [id number] [place] [address] [place] ALP [Catalytic activity/Vol] 60 U/L Normal 34-104 [facility] Comment on above: Order Comment: Speci men Type: BLOOD SPECIMENOrdering Facility: [facility] Address: [address] [place] [address] Performed By: #### 2 4323-8 ####PEG SA[facility] LABCLIA [id number] [address] OF [facility] ALT [Catalytic activity/Vol] 19 U/L Normal 7-52 [facility] Comment on above: Order Comment: Speci men Type: BLOOD SPECIMENOrdering Facility: [facility] Address: [address] [place] [address] Performed By: #### 2 4323-8 ####PEG SA[facility] LABCLIA [id number] [address] [place] Anion gap [Moles/Vol] 2 mmol/L Low 9-18 [facility] Comment on above: Order Comment: Speci men Type: BLOOD SPECIMENOrdering Facility: [facility] Address: [address] [place] [address] Performed By: #### 2 4323-8 ####PEG SAUC[facility] LABCLIA [id number] [address] [place] AST [Catalytic activity/Vol] 20 U/L Normal 13-39 [facility] Comment on above: Order Comment: Speci men Type: BLOOD SPECIMENOrdering Facility: [facility] Address: [address] [place] [address] Performed By: #### 2 4323-8 ####[facility] LABCLIA [id number] [place] [address] [place] Bilirubin [Mass/Vol] 0.9 mg/dL Normal 0.3-1.0 [facility] Comment on above: Order Comment: Speci men Type: BLOOD SPECIMENOrdering Facility: [facility] Address: [address] [place] [address] Result Comment: Use of this assay is not recommended for patients undergoing treatment with eltrombopag due to the potential for falsely elevated results. Performed By: #### 2 4323-8 ####[facility] Health and Human ServicesALIREZA [employer] LABCLIA [id number] [place] [address] [place] Calcium [Mass/Vol] 8.5 mg/dL Low 8.6-10.3 [facility] Comment on above: Order Comment: Speci men Type: BLOOD SPECIMENOrdering Facility: [facility] Address: [address] [place] [address] Performed By: #### 2 4323-8 ####[employer] LABCLIA [id number] [place] [address] [place] Chloride [Moles/Vol] 103 mmol/L Normal 101-111 [facility] Comment on above: Order Comment: Speci men Type: BLOOD SPECIMENOrdering Facility: [facility] Address: [address] [place] [address] Performed By: #### 2 4323-8 ####[employer] LABCLIA [id number] [place] [address] [place] CO2 [Moles/Vol] 34 mmol/L High 21-31 [facility] Comment on above: Order Comment: Speci men Type: BLOOD SPECIMENOrdering Facility: [facility] Address: [address] [place] [address] Performed By: #### 2 4323-8 ####[employer] LABCLIA [id number] [place] [address] [place] Creatinine [Mass/Vol] 1.12 mg/dL Normal 0.60-1.30 [facility] Comment on above: Order Comment: Speci men Type: BLOOD SPECIMENOrdering Facility: [facility] Address: [address] [place] [address] Result Comment: Use of this assay is not recommended for patients undergoing treatment with phenindione, due to the potential for falsely depressed results. Performed By: #### 2 4323-8 ####PEG YANG LABCLIA [id number] [place] [address] [place] ESTIMATED GLOMERULAR FILTRATION RATE 64 mL/min/1.73m??? Normal >=60 [facility] Comment on above: Order Comment: Elfego gilbert Type: BLOOD SPECIMENOrdering Facility: [facility] Address: [place] [address] Result Comment: Concepción mated Glomerular Filtration Rate [...] GFR. Performed By: #### 2 4323-8 ####PEG YANG LABCLIA [id number] [place] [address] [place] Glucose [Mass/Vol] 131 mg/dL High 74-99 [facility] Comment on above: Order Comment: Elfego gilbetr Type: BLOOD SPECIMENOrdering Facility: [facility] Address: [place] [address] Result Comment: The [place] Diabetes Association (ADA) provides guidance for cutoff [...] Standards of Medical Care in Diabetes 2016, [place] Diabetes Association. Diabetes Care. 2016.39(Suppl 1). Performed By: #### 2 4323-8 ####Department of Health and Human ServicesALIREZA [employer] LABCLIA [id number] [place] [address] [place] Potassium [Moles/Vol] 3.9 mmol/L Normal 3.6-5.1 [facility] Comment on above: Order Comment: Speci men Type: BLOOD SPECIMENOrdering Facility: [facility] Address: [address] [place] [address] Performed By: #### 2 4323-8 ####[place] [employer] LABCLIA [id number] [place] [address] [place] Protein [Mass/Vol] 5.6 g/dL Low 6.4-8.9 [facility] Comment on above: Order Comment: Speci men Type: BLOOD SPECIMENOrdering Facility: [facility] Address: [address] [place] [address] Performed By: #### 2 4323-8 ####[place] [employer] LABCLIA [id number] [place] [address] [place] Sodium [Moles/Vol] 139 mmol/L Normal 136-144 [facility] Comment on above: Order Comment: Speci men Type: BLOOD SPECIMENOrdering Facility: [facility] Address: [address] [place] [address] Performed By: #### 2 4323-8 ####[place] [employer] LABCLIA [id number] [place] [address] [place] Urea nitrogen [Mass/Vol] 30 mg/dL High 7-25 [facility] Comment on above: Order Comment: Speci men Type: BLOOD SPECIMENOrdering Facility: [facility] Address: [address] [place] [address] Performed By: #### 2 4323-8 ####[place] [employer] LABCLIA [id number] [place] [address] [facility] Albumin [Mass/Vol] 3.6 g/dL 3.5 - 5.7 g/dL [facility] ALP [Catalytic activity/Vol] 60 U/L 34 - 104 U/L [facility] ALT [Catalytic activity/Vol] 19 U/L 7 - 52 U/L [facility] Anion gap [Moles/Vol] 2 mmol/L Low 9 - 18 mmol/L [facility] AST [Catalytic activity/Vol] 20 U/L 13 - 39 U/L [facility] Bilirubin [Mass/Vol] 0.9 mg/dL 0.3 - 1 .0 mg/dL [facility] Calcium [Mass/Vol] 8.5 mg/dL Low 8.6 - 10. 3 mg/dL [facility] Chloride [Moles/Vol] 103 mmol/L 101 - 1 11 mmol/L [facility] CO2 [Moles/Vol] 34 mmol/L High 21 - 31 mmol/L [facility] Creatinine [Mass/Vol] 1.12 mg/dL 0.60 - 1.30 mg/dL [facility] Estimated Glomerular Filtration Rate 64 mL/min/1.73m >=60 mL/min/1.7 3m [facility] Glucose [Mass/Vol] 131 mg/dL High 74 - 99 mg/dL [facility] Potassium [Moles/Vol] 3.9 mmol/L 3.6 - 5.1 mmol/L [facility] Protein [Mass/Vol] 5.6 g/dL Low 6.4 - 8.9 g/dL [facility] Sodium [Moles/Vol] 139 mmol/L 136 - 144 mmol/L [facility] Urea nitrogen [Mass/Vol] 30 mg/dL High 7 - 25 mg/dL [facility] CNOVSPon 2022 CNOVSP Normal [facility] CBC W Auto Differential pane l (Bld)on 12-15-2022 Basophils (Bld) [#/Vol] 0.06 10*3/uL Normal <0.11 [facility] Comment on above: Order Comment: Speci men Type: BLOOD SPECIMENOrdering Facility: [facility] Address: [address] [place] [id number] Performed By: #### 5 7021-8 ####[facility] LABCLIA [id number] [place] [address] [place] Basophils/100 WBC (Bld) 1.0 % Normal [facility] Comment on above: Order Comment: Speci men Type: BLOOD SPECIMENOrdering Facility: [facility] Address: [address] [place] [address] Performed By: #### 5 7021-8 ####PEG [facility]UCED[facility] GREEN LABCLIA [id number] [place] [address] [facility] Differential cell count method Nom (Bld) Auto Normal [facility] Comment on above: Order Comment: Speci men Type: BLOOD SPECIMENOrdering Facility: [facility] Address: [address] [place] [address] Performed By: #### 5 7021-8 ####BELLOALIREZA YANG LABCLIA [id number] [place] [address] [place] Eosinophils (Bld) [#/Vol] 0.14 10*3/uL Normal <0.46 [facility] Comment on above: Order Comment: Speci men Type: BLOOD SPECIMENOrdering Facility: [facility] Address: [address] [place] [address] Performed By: #### 5 7021-8 ####PEG YANG LABCLIA [id number] [place] [address] [facility] OF [place] Eosinophils/100 WBC (Bld) 2.4 % Normal [facility] Comment on above: Order Comment: Speci men Type: BLOOD SPECIMENOrdering Facility: [facility] Address: [address] [place] [address] Performed By: #### 5 7021-8 ####PEG SAUCEDA GREEN LABCLIA [id number] [place] [address] [facility] OF [place] Erythrocyte distribution width (RBC) [Ratio] 18.4 % High 11.5-15.0 [facility] Comment on above: Order Comment: Speci men Type: BLOOD SPECIMENOrdering Facility: [facility] Address: [address] [place] [address] Performed By: #### 5 7021-8 ####PEG YANG LABCLIA [id number] [place] [address] [facility] OF [place] Hematocrit (Bld) [Volume fraction] 24.1 % Low 39.0-51.0 [facility] Comment on above: Order Comment: Speci men Type: BLOOD SPECIMENOrdering Facility: [facility] Address: [address] [place] [address] Performed By: #### 5 7021-8 ####PEG YANG LABCLIA [id number] [place] [address] [place] Hemoglobin (Bld) [Mass/Vol] 7.8 g/dL Low 13.0-17.0 [facility] Comment on above: Order Comment: Speci men Type: BLOOD SPECIMENOrdering Facility: [facility] Address: [address] [place] [address] Performed By: #### 5 7021-8 ####[place] [employer] LABCLIA [id number] [address] [place] Immature granulocytes (Bld) [#/Vol] 10*3/uL Normal <0.10 [facility] Comment on above: Order Comment: Speci men Type: BLOOD SPECIMENOrdering Facility: [facility] Address: [address] [place] [address] Performed By: #### 5 7021-8 ####[place] SAUCEDA GREEN LABCLIA [id number] [place] [address] [facility] OF [place] Immature granulocytes/100 WBC (Bld) 0.2 % Normal [facility] Comment on above: Order Comment: Speci men Type: BLOOD SPECIMENOrdering Facility: [facility] Address: [address] [place] [address] Performed By: #### 5 7021-8 ####PEG SAUCEDA GREEN LABCLIA [id number] [place] [address] [facility] OF [place] Lymphocytes (Bld) [#/Vol] 0.99 10*3/uL Low 1.00-4.00 [facility] Comment on above: Order Comment: Speci men Type: BLOOD SPECIMENOrdering Facility: [facility] Address: [address] [place] [address] Performed By: #### 5 7021-8 ####PEG SAUCEDA MOULTON LABCLIA [id number] [place] [address] [facility] Lymphocytes/100 WBC (Bld) 17.0 % Normal [facility] Comment on above: Order Comment: Speci men Type: BLOOD SPECIMENOrdering Facility: [facility] Address: [address] [place] [address] Performed By: #### 5 7021-8 ####[facility] LABCLIA [id number] [place] [address] [place] MCH (RBC) [Entitic mass] 38.6 pg High 26.0-34.0 [facility] Comment on above: Order Comment: Speci men Type: BLOOD SPECIMENOrdering Facility: [facility] Address: [address] [place] [address] Performed By: #### 5 7021-8 ####[place] SAUCEDA MOULTON LABCLIA [id number] [place] [address] [place] MCHC (RBC) [Mass/Vol] 32.4 g/dL Normal 30.5-36.0 [facility] Comment on above: Order Comment: Speci men Type: BLOOD SPECIMENOrdering Facility: [facility] Address: [address] [place] [address] Performed By: #### 5 7021-8 ####[facility] LABCLIA [id number] [place] [address] [place] MCV (RBC) [Entitic vol] 119.3 fL High 80.0-100.0 [facility] Comment on above: Order Comment: Speci men Type: BLOOD SPECIMENOrdering Facility: [facility] Address: [address] [place] [address] Performed By: #### 5 7021-8 ####[facility] LABCLIA [id number] [place] [address] [place] Monocytes (Bld) [#/Vol] 0.63 10*3/uL Normal <0.87 [facility] Comment on above: Order Comment: Speci men Type: BLOOD SPECIMENOrdering Facility: [facility] Address: [address] [place] [address] Performed By: #### 5 7021-8 ####[facility] LABCLIA [id number] [address] [place] Monocytes/100 WBC (Bld) 10.8 % Normal [facility] Comment on above: Order Comment: Speci men Type: BLOOD SPECIMENOrdering Facility: [facility] Address: [address] [place] [address] Performed By: #### 5 7021-8 ####[facility] LABCLIA [id number] [place] [address] [place] Neutrophils (Bld) [#/Vol] 3.99 10*3/uL Normal 1.45-7.50 [facility] Comment on above: Order Comment: Speci men Type: BLOOD SPECIMENOrdering Facility: [facility] Address: [address] [place] [address] Performed By: #### 5 7021-8 ####AKALIREZA [facility] LABCLIA [id number] [place] [address] [place] Neutrophils/100 WBC (Bld) 68.6 % Normal [facility] Comment on above: Order Comment: Speci men Type: BLOOD SPECIMENOrdering Facility: [facility] Address: [address] [place] [address] Performed By: #### 5 7021-8 ####[facility] LABCLIA [id number] [place] [address] [place] Nucleated RBC (Bld) [#/Vol] Normal [facility] Comment on above: Order Comment: Speci men Type: BLOOD SPECIMENOrdering Facility: [facility] Address: [address] [place] [address] Performed By: #### 5 7021-8 ####PEG SAUCEDA GREEN LABCLIA [id number] [place] [address] [place] Nucleated RBC/100 WBC (Bld) [Ratio] Normal [facility] Comment on above: Order Comment: Speci men Type: BLOOD SPECIMENOrdering Facility: [facility] Address: [address] [place] [address] Performed By: #### 5 7021-8 ####PEG YANG LABCLIA [id number] [place] [address] [place] Platelet mean volume (Bld) [Entitic vol] 10.9 fL Normal 9.0-12.7 [facility] Comment on above: Order Comment: Speci men Type: BLOOD SPECIMENOrdering Facility: [facility] Address: [address] [place] [address] Performed By: #### 5 7021-8 ####PEG YANG LABCLIA [id number] [place] [address] [place] Platelets (Bld) [#/Vol] 261 10*3/uL Normal 150-400 [facility] Comment on above: Order Comment: Speci men Type: BLOOD SPECIMENOrdering Facility: [facility] Address: [address] [place] [address] Performed By: #### 5 7021-8 ####[place] GRE[facility] LABCLIA [id number] [place] [address] [place] RBC (Bld) [#/Vol] 2.02 10*6/uL Low 4.20-6.00 [facility] Comment on above: Order Comment: Speci men Type: BLOOD SPECIMENOrdering Facility: [facility] Address: [address] [place] [address] Performed By: #### 5 7021-8 ####WYALIREZA YANG LABCLIA [id number] [place] [address] [place] WBC (Bld) [#/Vol] 5.82 10*3/uL Normal 3.70-11.00 [facility] Comment on above: Order Comment: Speci men Type: BLOOD SPECIMENOrdering Facility: [facility] Address: [place] [address] Performed By: #### 5 7021-8 ####PEG YANG LABCLIA [id number] [place] [address] [place] Basophils (Bld) [#/Vol] 0.06 10*3/uL <0.11 k/uL [facility] Basophils/100 WBC (Bld) 1.0 % [facility] Differential cell count method Nom (Bld) Auto [facility] Eosinophils (Bld) [#/Vol] 0.14 10*3/uL <0.46 k/uL [facility] Eosinophils/100 WBC (Bld) 2.4 % [facility] Erythrocyte distribution width (RBC) [Ratio] 18.4 % High 11.5 - 15.0 % [facility] Hematocrit (Bld) [Volume fraction] 24.1 % Low 39.0 - 51.0 % [facility] Hemoglobin (Bld) [Mass/Vol] 7.8 g/dL Low 13.0 - 17.0 g/dL [facility] Immature granulocytes (Bld) [#/Vol] <0.10 k/uL [facility] Immature granulocytes/100 WBC (Bld) 0.2 % [facility] Lymphocytes (Bld) [#/Vol] 0.99 10*3/uL Low 1.00 - 4.00 k/uL [facility] Lymphocytes/100 WBC (Bld) 17.0 % [facility] MCH (RBC) [Entitic mass] 38.6 pg High 26.0 - 34.0 pg [facility] MCHC (RBC) [Mass/Vol] 32.4 g/dL 30.5 - 36.0 g/dL [facility] MCV (RBC) [Entitic vol] 119.3 fL High 80.0 - 100.0 fL [facility] Monocytes (Bld) [#/Vol] 0.63 10*3/uL <0.87 k/uL [facility] Monocytes/100 WBC (Bld) 10.8 % [facility] Neutrophils (Bld) [#/Vol] 3.99 10*3/uL 1.45 - 7.50 k/uL [facility] Neutrophils/100 WBC (Bld) 68.6 % [facility] Nucleated RBC (Bld) [#/Vol] [facility] Nucleated RBC/100 WBC (Bld) [Ratio] [facility] Platelet mean volume (Bld) [Entitic vol] 10.9 fL 9.0 - 12.7 fL [facility] Platelets (Bld) [#/Vol] 261 10*3/uL 150 - 400 k/uL [facility] RBC (Bld) [#/Vol] 2.02 10*6/uL Low 4.20 - 6.00 m/uL [facility] WBC (Bld) [#/Vol] 5.82 10*3/uL 3.70 - 11.00 k/uL [facility] CNPNon 12-15-2022 CNPN Normal [facility] Comprehensive metabolic 2000 panelon 12-15-2022 Albumin [Mass/Vol] 3.6 g/dL Normal 3.5-5.7 [facility] Comment on above: Order Comment: Speci men Type: BLOOD SPECIMENOrdering Facility: [facility] Address: [address] [place] [address] Performed By: #### 2 4323-8 ####[facility] LABCLIA [id number] [place] [address] [place] ALP [Catalytic activity/Vol] 50 U/L Normal 34-104 [facility] Comment on above: Order Comment: Speci men Type: BLOOD SPECIMENOrdering Facility: [facility] Address: [address] [place] [address] Performed By: #### 2 4323-8 ####[place] [employer] LABCLIA [id number] [place] [address] [place] ALT [Catalytic activity/Vol] 19 U/L Normal 7-52 [facility] Comment on above: Order Comment: Speci men Type: BLOOD SPECIMENOrdering Facility: [facility] Address: [address] [place] [address] Performed By: #### 2 4323-8 ####[facility]ALIRE[place] [facility] GREEN LABCLIA [id number] [place] [address] [place] Anion gap [Moles/Vol] 3 mmol/L Low 9-18 [facility] Comment on above: Order Comment: Speci men Type: BLOOD SPECIMENOrdering Facility: [facility] Address: [address] [place] [address] Performed By: #### 2 4323-8 ####[facility] LABCLIA [id number] [place] AST [Catalytic activity/Vol] 22 U/L Normal 13-39 [facility] Comment on above: Order Comment: Speci men Type: BLOOD SPECIMENOrdering Facility: [facility] Address: [address] [place] [address] Performed By: #### 2 4323-8 ####[facility] LABCLIA [id number] [place] [address] [place] Bilirubin [Mass/Vol] 1.3 mg/dL High 0.3-1.0 [facility] Comment on above: Order Comment: Speci men Type: BLOOD SPECIMENOrdering Facility: [facility] Address: [address] [place] [address] Result Comment: Use of this assay is not recommended for patients undergoing treatment with eltrombopag due to the potential for falsely elevated results. Performed By: #### 2 4323-8 ####[facility] GREEN LABCLIA [id number] [place] [address] [place] Calcium [Mass/Vol] 8.6 mg/dL Normal 8.6-10.3 [facility] Comment on above: Order Comment: Speci men Type: BLOOD SPECIMENOrdering Facility: [facility] Address: [address] [place] [address] Performed By: #### 2 4323-8 ####WYALIREZA YANG LABCLIA [id number] [place] [address] [place] Chloride [Moles/Vol] 102 mmol/L Normal 101-111 [facility] Comment on above: Order Comment: Speci men Type: BLOOD SPECIMENOrdering Facility: [facility] Address: [address] [place] [address] Performed By: #### 2 4323-8 ####[facility] LABCLIA [id number] [address] [place] CO2 [Moles/Vol] 33 mmol/L High 21-31 [facility] Comment on above: Order Comment: Speci men Type: BLOOD SPECIMENOrdering Facility: [facility] Address: [address] [place] [address] Performed By: #### 2 4323-8 ####[facility] A[facility] LABCLIA [id number] [place] [address] [place] Creatinine [Mass/Vol] 1.04 mg/dL Normal 0.70-1.30 [facility] Comment on above: Order Comment: Speci men Type: BLOOD SPECIMENOrdering Facility: [facility] Address: [address] [place] [address] Result Comment: Use of this assay is not recommended for patients undergoing treatment with phenindione, due to the potential for falsely depressed results. Performed By: #### 2 4323-8 ####[facility] LABCLIA [id number] [place] [address] [place] ESTIMATED GLOMERULAR FILTRATION RATE 70 mL/min/1.73m??? Normal >=60 [facility] Comment on above: Order Comment: Speci men Type: BLOOD SPECIMENOrdering Facility: [facility] Address: [address] [place] [address] Result Comment: Concepción mated Glomerular Filtration Rate [...] actual GFR. Performed By: #### 2 4323-8 ####[facility] LABIA [id number] [place] [address] [place] Glucose [Mass/Vol] 159 mg/dL High 74-99 [facility] Comment on above: Order Comment: Elfego gilbert Type: BLOOD SPECIMENOrdering Facility: [facility] Address: [address] [place] [address] Result Comment: The [place] Diabetes Association (ADA) provides guidance for cutoff [...] Standards of Medical Care in Diabetes 2016, [place] [employer]. Diabetes Care. 2016.39(Suppl 1). Performed By: #### 2 4323-8 ####[facility] Areshay LABCLIA [id number] [place] [address] [place] Potassium [Moles/Vol] 4.1 mmol/L Normal 3.6-5.1 [facility] Comment on above: Order Comment: Elfego gilbert Type: BLOOD SPECIMENOrdering Facility: [facility] Address: [address] [place] [address] Performed By: #### 2 4323-8 ####[place] [employer] LABCLIA [id number] [place] [address] [place] Protein [Mass/Vol] 5.6 g/dL Low 6.4-8.9 [facility] Comment on above: Order Comment: Speci men Type: BLOOD SPECIMENOrdering Facility: [facility] Address: [address] [place] [address] Performed By: #### 2 4323-8 ####PEG YANG LABCLIA [id number] [place] [address] [place] Sodium [Moles/Vol] 138 mmol/L Normal 136-144 [facility] Comment on above: Order Comment: Speci men Type: BLOOD SPECIMENOrdering Facility: [facility] Address: [address] [place] [address] Performed By: #### 2 4323-8 ####PEG YANG LABCLIA [id number] [place] [address] [place] Urea nitrogen [Mass/Vol] 30 mg/dL High 7-25 [facility] Comment on above: Order Comment: Speci men Type: BLOOD SPECIMENOrdering Facility: [facility] Address: [address] [place] [address] Performed By: #### 2 4323-8 ####PEG YANG LABCLIA [id number] [place] [address] [place] Albumin [Mass/Vol] 3.6 g/dL 3.5 - 5.7 g/dL [facility] ALP [Catalytic activity/Vol] 50 U/L 34 - 104 U/L [facility] ALT [Catalytic activity/Vol] 19 U/L 7 - 52 U/L [facility] Anion gap [Moles/Vol] 3 mmol/L Low 9 - 18 mmol/L [facility] AST [Catalytic activity/Vol] 22 U/L 13 - 39 U/L [facility] Bilirubin [Mass/Vol] 1.3 mg/dL High 0.3 - 1 .0 mg/dL [facility] Calcium [Mass/Vol] 8.6 mg/dL 8.6 - 10. 3 mg/dL [facility] Chloride [Moles/Vol] 102 mmol/L 101 - 1 11 mmol/L [facility] CO2 [Moles/Vol] 33 mmol/L High 21 - 31 mmol/L [facility] Creatinine [Mass/Vol] 1.04 mg/dL 0.70 - 1.30 mg/dL [facility] Estimated Glomerular Filtration Rate 70 mL/min/1.73m >=60 mL/min/1.7 3m [facility] Glucose [Mass/Vol] 159 mg/dL High 74 - 99 mg/dL [facility] Potassium [Moles/Vol] 4.1 mmol/L 3.6 - 5.1 mmol/L [facility] Protein [Mass/Vol] 5.6 g/dL Low 6.4 - 8.9 g/dL [facility] Sodium [Moles/Vol] 138 mmol/L 136 - 144 mmol/L [facility] Urea nitrogen [Mass/Vol] 30 mg/dL High 7 - 25 mg/dL [facility] OPERATIVE NOon 12-05-2022 OPERATIVE NO Normal [facility] CBC W Auto Differential pane l (Bld)on 12-04-2022 Basophils (Bld) [#/Vol] 0.04 10*3/uL Normal <0.11 [facility] Comment on above: Order Comment: Speci men Type: BLOOD SPECIMENOrdering Facility: [facility] Address: [address] [place] [address] Performed By: #### 5 7021-8 ####[facility] LABORATORYCLIA [id number] [place] Basophils/100 WBC (Bld) 0.5 % Normal [facility] Comment on above: Order Comment: Speci men Type: BLOOD SPECIMENOrdering Facility: [facility] Address: [address] [place] [address] Performed By: #### 5 7021-8 ####[facility] LABORATORYCLIA [id number] [address] [place] Differential cell count method Nom (Bld) Auto Normal [facility] Comment on above: Order Comment: Speci men Type: BLOOD SPECIMENOrdering Facility: [facility] Address: [address] [address] Performed By: #### 5 7021-8 ####[facility] LABORATORYCLIA [id number] [address] Eosinophils (Bld) [#/Vol] 0.16 10*3/uL Normal <0.46 [facility] Comment on above: Order Comment: Speci men Type: BLOOD SPECIMENOrdering Facility: [facility] Address: [address] [place] [address] Performed By: #### 5 7021-8 ####[facility] LABORATORYCLIA [id number] [address] Eosinophils/100 WBC (Bld) 2.1 % Normal [facility] Comment on above: Order Comment: Speci men Type: BLOOD SPECIMENOrdering Facility: [facility] Address: [address] [place] [address] Performed By: #### 5 7021-8 ####[facility] LABORATORYCLIA [id number] [address] Erythrocyte distribution width (RBC) [Ratio] 19.3 % High 11.5-15.0 [facility] Comment on above: Order Comment: Speci men Type: BLOOD SPECIMENOrdering Facility: [facility] Address: [address] [place] [address] Performed By: #### 5 7021-8 ####[facility] LABORATORYCLIA [id number] [address] [place] Hematocrit (Bld) [Volume fraction] 26.1 % Low 39.0-51.0 [facility] Comment on above: Order Comment: Speci men Type: BLOOD SPECIMENOrdering Facility: [facility] Address: [address] [place] [address] Performed By: #### 5 7021-8 ####[facility] LABORATORYCLIA [id number] [address] [place] Hemoglobin (Bld) [Mass/Vol] 8.5 g/dL Low 13.0-17.0 [facility] Comment on above: Order Comment: Speci men Type: BLOOD SPECIMENOrdering Facility: [facility] Address: [address] [place] [address] Performed By: #### 5 7021-8 ####[facility]ORATORYCLIA [id number] [address] [place] Immature granulocytes (Bld) [#/Vol] 0.03 10*3/uL Normal <0.10 [facility] Comment on above: Order Comment: Speci men Type: BLOOD SPECIMENOrdering Facility: [facility] Address: [address] [place] [address] Performed By: #### 5 7021-8 ####[facility]ORATORYCLIA [id number] [address] Immature granulocytes/100 WBC (Bld) 0.4 % Normal [facility] Comment on above: Order Comment: Speci men Type: BLOOD SPECIMENOrdering Facility: [facility] Address: [address] [place] [address] Performed By: #### 5 7021-8 ####[facility]ORATORYCLIA [id number] [address] [place] Lymphocytes (Bld) [#/Vol] 1.35 10*3/uL Normal 1.00-4.00 [facility] Comment on above: Order Comment: Speci men Type: BLOOD SPECIMENOrdering Facility: [facility] Address: [address] [place] [address] Performed By: #### 5 7021-8 ####[facility]ATORYCLIA [id number] [address] Lymphocytes/100 WBC (Bld) 18.0 % Normal [facility] Comment on above: Order Comment: Speci men Type: BLOOD SPECIMENOrdering Facility: [facility] Address: [address] [place] [address] Performed By: #### 5 7021-8 ####[facility]ORATORYCLIA [id number] [address] MCH (RBC) [Entitic mass] 38.3 pg High 26.0-34.0 [facility] Comment on above: Order Comment: Speci men Type: BLOOD SPECIMENOrdering Facility: [facility] Address: [address] [place] [address] Performed By: #### 5 7021-8 ####[facility] LABORATORYCLIA [id number] [address] [place] MCHC (RBC) [Mass/Vol] 32.6 g/dL Normal 30.5-36.0 [facility] Comment on above: Order Comment: Speci men Type: BLOOD SPECIMENOrdering Facility: [facility] Address: [address] [place] [address] Performed By: #### 5 7021-8 ####[facility] LABORATORYCLIA [id number] [address] OF [facility] MCV (RBC) [Entitic vol] 117.6 fL High 80.0-100.0 [facility] Comment on above: Order Comment: Speci men Type: BLOOD SPECIMENOrdering Facility: [facility] Address: [address] [place] [address] Performed By: #### 5 7021-8 ####[facility] LABORATORYCLIA [id number] [address] Monocytes (Bld) [#/Vol] 0.96 10*3/uL High <0.87 [facility] Comment on above: Order Comment: Speci men Type: BLOOD SPECIMENOrdering Facility: [facility] Address: [address] [place] [address] Performed By: #### 5 7021-8 ####[facility] LABORATORYCLIA [id number] [address] Monocytes/100 WBC (Bld) 12.8 % Normal [facility] Comment on above: Order Comment: Speci men Type: BLOOD SPECIMENOrdering Facility: [facility] Address: [address] [place] [address] Performed By: #### 5 7021-8 ####[facility]ORATORYCLIA [id number] [address] [place] Neutrophils (Bld) [#/Vol] 4.98 10*3/uL Normal 1.45-7.50 [facility] Comment on above: Order Comment: Speci men Type: BLOOD SPECIMENOrdering Facility: [facility] Address: [address] [place] [address] Performed By: #### 5 7021-8 ####[facility]ORATORYCLIA [id number] [address] [place] Neutrophils/100 WBC (Bld) 66.2 % Normal [facility] Comment on above: Order Comment: Speci men Type: BLOOD SPECIMENOrdering Facility: [facility] Address: [address] [place] [address] Performed By: #### 5 7021-8 ####[facility] LABORATORYCLIA [id number] [address] STATES [facility] Nucleated RBC (Bld) [#/Vol] 0.08 10*3/uL High <0.01 [facility] Comment on above: Order Comment: Speci men Type: BLOOD SPECIMENOrdering Facility: [facility] Address: [address] [place] [address] Performed By: #### 5 7021-8 ####[facility] LABORATORYCLIA [id number] [address] [place] Nucleated RBC/100 WBC (Bld) [Ratio] 1.1 /100 WBC Normal [facility] Comment on above: Order Comment: Speci men Type: BLOOD SPECIMENOrdering Facility: [facility] Address: [address] [place] [address] Performed By: #### 5 7021-8 ####[facility] LABORATORYCLIA [id number] [address] [place] Platelet mean volume (Bld) [Entitic vol] 11.0 fL Normal 9.0-12.7 [facility] Comment on above: Order Comment: Speci men Type: BLOOD SPECIMENOrdering Facility: [facility] Address: [address] [place] [address] Performed By: #### 5 7021-8 ####[facility] LABORATORYCLIA [id number] [address] [place] Platelets (Bld) [#/Vol] 292 10*3/uL Normal 150-400 [facility] Comment on above: Order Comment: Speci men Type: BLOOD SPECIMENOrdering Facility: [facility] Address: [address] [place] [address] Performed By: #### 5 7021-8 ####[facility] LABORATORYCLIA [id number] [address] [place] RBC (Bld) [#/Vol] 2.22 10*6/uL Low 4.20-6.00 [facility] Comment on above: Order Comment: Speci men Type: BLOOD SPECIMENOrdering Facility: [facility] Address: [address] [place] [address] Performed By: #### 5 7021-8 ####[facility] LABORATORYCLIA [id number] [address] WBC (Bld) [#/Vol] 7.52 10*3/uL Normal 3.70-11.00 [facility] Comment on above: Order Comment: Speci men Type: BLOOD SPECIMENOrdering Facility: [facility] Address: [address] [place] [address] Performed By: #### 5 7021-8 ####[facility] LABORATORYCLIA [id number] [place] [address] [place] Basophils (Bld) [#/Vol] 0.04 10*3/uL <0.11 k/uL [facility] Basophils/100 WBC (Bld) 0.5 % [facility] Differential cell count method Nom (Bld) Auto [facility] Eosinophils (Bld) [#/Vol] 0.16 10*3/uL <0.46 k/uL [facility] Eosinophils/100 WBC (Bld) 2.1 % [facility] Erythrocyte distribution width (RBC) [Ratio] 19.3 % High 11.5 - 15.0 % [facility] Hematocrit (Bld) [Volume fraction] 26.1 % Low 39.0 - 51.0 % [facility] Hemoglobin (Bld) [Mass/Vol] 8.5 g/dL Low 13.0 - 17.0 g/dL [facility] Immature granulocytes (Bld) [#/Vol] 0.03 10*3/uL <0.10 k/uL [facility] Immature granulocytes/100 WBC (Bld) 0.4 % [facility] Lymphocytes (Bld) [#/Vol] 1.35 10*3/uL 1.00 - 4.00 k/uL [facility] Lymphocytes/100 WBC (Bld) 18.0 % [facility] MCH (RBC) [Entitic mass] 38.3 pg High 26.0 - 34.0 pg [facility] MCHC (RBC) [Mass/Vol] 32.6 g/dL 30.5 - 36.0 g/dL [facility] MCV (RBC) [Entitic vol] 117.6 fL High 80.0 - 100.0 fL [facility] Monocytes (Bld) [#/Vol] 0.96 10*3/uL High <0.87 k/uL [facility] Monocytes/100 WBC (Bld) 12.8 % [facility] Neutrophils (Bld) [#/Vol] 4.98 10*3/uL 1.45 - 7.50 k/uL [facility] Neutrophils/100 WBC (Bld) 66.2 % [facility] Nucleated RBC (Bld) [#/Vol] 0.08 10*3/uL High <0.01 k/uL [facility] Nucleated RBC/100 WBC (Bld) [Ratio] 1.1 /100 WBC [facility] Platelet mean volume (Bld) [Entitic vol] 11.0 fL 9.0 - 12.7 fL [facility] Platelets (Bld) [#/Vol] 292 10*3/uL 150 - 400 k/uL [facility] RBC (Bld) [#/Vol] 2.22 10*6/uL Low 4.20 - 6.00 m/uL [facility] WBC (Bld) [#/Vol] 7.52 10*3/uL 3.70 - 11.00 k/uL [facility] CNOVSPon 12-04-2022 CNOVSP Normal [facility] CNSWon 12-04-2022 CNSW Normal [facility] CBC W Auto Differential pane l (Bld)on 11-26-2022 Basophils (Bld) [#/Vol] 0.06 10*3/uL Normal <0.11 [facility] Comment on above: Order Comment: Speci men Type: BLOOD SPECIMENOrdering Facility: [facility] Address: [address] [place] [address] Performed By: #### 5 7021-8 ####[facility] LABORATORYCLIA [id number] [address] [place] Basophils/100 WBC (Bld) 1.0 % Normal [facility] Comment on above: Order Comment: Speci men Type: BLOOD SPECIMENOrdering Facility: [facility] Address: [address] [place] [address] Performed By: #### 5 7021-8 ####[facility] LABORATORYCLIA [id number] [address] [place] Differential cell count method Nom (Bld) Auto Normal [facility] Comment on above: Order Comment: Speci men Type: BLOOD SPECIMENOrdering Facility: [facility] Address: [address] [place] [address] Performed By: #### 5 7021-8 ####[facility] LABORATORYCLIA [id number] [place] [address] [place] Eosinophils (Bld) [#/Vol] 0.21 10*3/uL Normal <0.46 [facility] Comment on above: Order Comment: Speci men Type: BLOOD SPECIMENOrdering Facility: [facility] Address: [address] [place] [address] Performed By: #### 5 7021-8 ####[facility] LABORATORYCLIA [id number] [address] [place] Eosinophils/100 WBC (Bld) 3.4 % Normal [facility] Comment on above: Order Comment: Speci men Type: BLOOD SPECIMENOrdering Facility: [facility] Address: [address] [place] [address] Performed By: #### 5 7021-8 ####[facility] LABORATORYCLIA [id number] [address] Erythrocyte distribution width (RBC) [Ratio] 19.2 % High 11.5-15.0 [facility] Comment on above: Order Comment: Speci men Type: BLOOD SPECIMENOrdering Facility: [facility] Address: [address] [place] [address] Performed By: #### 5 7021-8 ####[facility] LABORATORYCLIA [id number] [address] Hematocrit (Bld) [Volume fraction] 26.1 % Low 39.0-51.0 [facility] Comment on above: Order Comment: Speci men Type: BLOOD SPECIMENOrdering Facility: [facility] Address: [address] [place] [address] Performed By: #### 5 7021-8 ####[facility] LABORATORYCLIA [id number] [address] Hemoglobin (Bld) [Mass/Vol] 8.3 g/dL Low 13.0-17.0 [facility] Comment on above: Order Comment: Speci men Type: BLOOD SPECIMENOrdering Facility: [facility] Address: [address] [place] [address] Performed By: #### 5 7021-8 ####[facility] LABORATORYCLIA [id number] [address] Immature granulocytes (Bld) [#/Vol] 10*3/uL Normal <0.10 [facility] Comment on above: Order Comment: Speci men Type: BLOOD SPECIMENOrdering Facility: [facility] Address: [address] [place] [address] Performed By: #### 5 7021-8 ####[facility] LABORATORYCLIA [id number] [address] [place] Immature granulocytes/100 WBC (Bld) 0.3 % Normal [facility] Comment on above: Order Comment: Speci men Type: BLOOD SPECIMENOrdering Facility: [facility] Address: [address] [place] [address] Performed By: #### 5 7021-8 ####[facility] LABORATORYCLIA [id number] [address] [place] Lymphocytes (Bld) [#/Vol] 1.47 10*3/uL Normal 1.00-4.00 [facility] Comment on above: Order Comment: Speci men Type: BLOOD SPECIMENOrdering Facility: [facility] Address: [address] [place] [address] Performed By: #### 5 7021-8 ####[facility] LABORATORYCLIA [id number] [address] Lymphocytes/100 WBC (Bld) 23.9 % Normal [facility] Comment on above: Order Comment: Speci men Type: BLOOD SPECIMENOrdering Facility: [facility] Address: [address] [place] [address] Performed By: #### 5 7021-8 ####[facility] LABORATORYCLIA [id number] [address] [place] MCH (RBC) [Entitic mass] 37.4 pg High 26.0-34.0 [facility] Comment on above: Order Comment: Speci men Type: BLOOD SPECIMENOrdering Facility: [facility] Address: [address] [place] [address] Performed By: #### 5 7021-8 ####[facility] LABORATORYCLIA [id number] [address] STATES OF [facility] MCHC (RBC) [Mass/Vol] 31.8 g/dL Normal 30.5-36.0 [facility] Comment on above: Order Comment: Speci men Type: BLOOD SPECIMENOrdering Facility: [facility] Address: [address] [place] [address] Performed By: #### 5 7021-8 ####[facility]ORATORYCLIA [id number] [place] [address] [place] MCV (RBC) [Entitic vol] 117.6 fL High 80.0-100.0 [facility] Comment on above: Order Comment: Speci men Type: BLOOD SPECIMENOrdering Facility: [facility] Address: [address] [place] [address] Performed By: #### 5 7021-8 ####[facility] LABORATORYCLIA [id number] [place] [address] [place] Monocytes (Bld) [#/Vol] 0.80 10*3/uL Normal <0.87 [facility] Comment on above: Order Comment: Speci men Type: BLOOD SPECIMENOrdering Facility: [facility] Address: [address] [place] [address] Performed By: #### 5 7021-8 ####[facility] LABORATORYCLIA [id number] [address] Monocytes/100 WBC (Bld) 13.0 % Normal [facility] Comment on above: Order Comment: Speci men Type: BLOOD SPECIMENOrdering Facility: [facility] Address: [address] [place] [address] Performed By: #### 5 7021-8 ####[facility]ORATORYCLIA [id number] [address] [place] Neutrophils (Bld) [#/Vol] 3.58 10*3/uL Normal 1.45-7.50 [facility] Comment on above: Order Comment: Speci men Type: BLOOD SPECIMENOrdering Facility: [facility] Address: [address] [place] [address] Performed By: #### 5 7021-8 ####[facility] LABORATORYCLIA [id number] [address] [place] Neutrophils/100 WBC (Bld) 58.4 % Normal [facility] Comment on above: Order Comment: Speci men Type: BLOOD SPECIMENOrdering Facility: [facility] Address: [facility] [place] [address] Performed By: #### 5 7021-8 ####[facility] LABORATORYCLIA [id number] [address] [place] Nucleated RBC (Bld) [#/Vol] 0.03 10*3/uL High <0.01 [facility] Comment on above: Order Comment: Speci men Type: BLOOD SPECIMENOrdering Facility: [facility] Address: [address] [place] [address] Performed By: #### 5 7021-8 ####[facility] LABORATORYCLIA [id number] [address] OF [facility] Nucleated RBC/100 WBC (Bld) [Ratio] 0.5 /100 WBC Normal [facility] Comment on above: Order Comment: Speci men Type: BLOOD SPECIMENOrdering Facility: [facility] Address: [address] [place] [address] Performed By: #### 5 7021-8 ####[facility] LABORATORYCLIA [id number] [address] [place] Platelet mean volume (Bld) [Entitic vol] 11.5 fL Normal 9.0-12.7 [facility] Comment on above: Order Comment: Speci men Type: BLOOD SPECIMENOrdering Facility: [facility] Address: [address] [place] [address] Performed By: #### 5 7021-8 ####[facility] LABORATORYCLIA [id number] [address] [place] Platelets (Bld) [#/Vol] 292 10*3/uL Normal 150-400 [facility] Comment on above: Order Comment: Speci men Type: BLOOD SPECIMENOrdering Facility: [facility] Address: [address] [place] [address] Performed By: #### 5 7021-8 ####[facility] LABORATORYCLIA [id number] [address] [place] RBC (Bld) [#/Vol] 2.22 10*6/uL Low 4.20-6.00 [facility] Comment on above: Order Comment: Speci men Type: BLOOD SPECIMENOrdering Facility: [facility] Address: [address] [place] [address] Performed By: #### 5 7021-8 ####[facility] LABORATORYCLIA [id number] [address] OF [facility] WBC (Bld) [#/Vol] 6.14 10*3/uL Normal 3.70-11.00 [facility] Comment on above: Order Comment: Speci men Type: BLOOD SPECIMENOrdering Facility: [facility] Address: [address] [place] [address] Performed By: #### 5 7021-8 ####[facility] LABORATORYCLIA [id number] [address] OF [facility] CNOVSPon 11-26-2022 CNOVSP Normal [facility] CNPNon 11-26-2022 CNPN Normal [facility] EPO SerPl-aCncon 11-26-2022 Erythropoietin (EPO) Qn 74.5 mIU/mL High 2.6-18.5 [facility] Comment on above: Order Comment: Speci men Type: BLOOD SPECIMENOrdering Facility: [facility] Address: [address] [place] [address] Performed By: #### 1 5061-5 ####[facility] LABCLIA [id number] [facility] [id number] OF [facility] CNPNon 11-06-2022 CNPN Normal [facility] CBC W Auto Differential pane l (Bld)on 11-05-2022 Basophils (Bld) [#/Vol] 0.07 10*3/uL Normal <0.11 [facility] Comment on above: Order Comment: Speci men Type: BLOOD SPECIMENOrdering Facility: [facility] Address: [address] [place] [address] Performed By: #### 5 7021-8 ####[facility]ORATORYCLIA [id number] [address] [place] Basophils/100 WBC (Bld) 1.0 % Normal [facility] Comment on above: Order Comment: Speci men Type: BLOOD SPECIMENOrdering Facility: [facility] Address: [address] [place] [address] Performed By: #### 5 7021-8 ####[facility] LABORATORYCLIA [id number] [address] [place] Differential cell count method Nom (Bld) Auto Normal [facility] Comment on above: Order Comment: Speci men Type: BLOOD SPECIMENOrdering Facility: [facility] Address: [address] [place] [address] Performed By: #### 5 7021-8 ####[facility] LABORATORYCLIA [id number] [address] [place] Eosinophils (Bld) [#/Vol] 0.19 10*3/uL Normal <0.46 [facility] Comment on above: Order Comment: Speci men Type: BLOOD SPECIMENOrdering Facility: [facility] Address: [address] [place] [address] Performed By: #### 5 7021-8 ####[facility] LABORATORYCLIA [id number] [address] Eosinophils/100 WBC (Bld) 2.7 % Normal [facility] Comment on above: Order Comment: Speci men Type: BLOOD SPECIMENOrdering Facility: [facility] Address: [address] [place] [address] Performed By: #### 5 7021-8 ####[facility] LABORATORYCLIA [id number] [address] [place] Erythrocyte distribution width (RBC) [Ratio] 18.8 % High 11.5-15.0 [facility] Comment on above: Order Comment: Speci men Type: BLOOD SPECIMENOrdering Facility: [facility] Address: [address] [place] [address] Performed By: #### 5 7021-8 ####[facility]ORATORYCLIA [id number] [address] [place] Hematocrit (Bld) [Volume fraction] 24.2 % Low 39.0-51.0 [facility] Comment on above: Order Comment: Speci men Type: BLOOD SPECIMENOrdering Facility: [facility] Address: [address] [place] [address] Performed By: #### 5 7021-8 ####[facility] LABORATORYCLIA [id number] [address] [place] Hemoglobin (Bld) [Mass/Vol] 7.9 g/dL Low 13.0-17.0 [facility] Comment on above: Order Comment: Speci men Type: BLOOD SPECIMENOrdering Facility: [facility] Address: [address] [place] [address] Performed By: #### 5 7021-8 ####[facility] LABORATORYCLIA [id number] [address] [place] Immature granulocytes (Bld) [#/Vol] 0.03 10*3/uL Normal <0.10 [facility] Comment on above: Order Comment: Speci men Type: BLOOD SPECIMENOrdering Facility: [facility] Address: [address] [place] [address] Performed By: #### 5 7021-8 ####[facility] LABORATORYCLIA [id number] [address] [place] Immature granulocytes/100 WBC (Bld) 0.4 % Normal [facility] Comment on above: Order Comment: Speci men Type: BLOOD SPECIMENOrdering Facility: [facility] Address: [address] [place] [address] Performed By: #### 5 7021-8 ####[facility] LABORATORYCLIA [id number] [address] [place] Lymphocytes (Bld) [#/Vol] 1.08 10*3/uL Normal 1.00-4.00 [facility] Comment on above: Order Comment: Speci men Type: BLOOD SPECIMENOrdering Facility: [facility] Address: [address] [place] [address] Performed By: #### 5 7021-8 ####[facility] LABORATORYCLIA [id number] [address] Lymphocytes/100 WBC (Bld) 15.6 % Normal [facility] Comment on above: Order Comment: Speci men Type: BLOOD SPECIMENOrdering Facility: [facility] Address: [address] [place] [address] Performed By: #### 5 7021-8 ####[facility] LABORATORYCLIA [id number] [address] [place] [facility] MCH (RBC) [Entitic mass] 38.0 pg High 26.0-34.0 [facility] Comment on above: Order Comment: Speci men Type: BLOOD SPECIMENOrdering Facility: [facility] Address: [address] [place] [address] Performed By: #### 5 7021-8 ####[facility] LABORATORYCLIA [id number] [address] [facility] MCHC (RBC) [Mass/Vol] 32.6 g/dL Normal 30.5-36.0 [facility] Comment on above: Order Comment: Speci men Type: BLOOD SPECIMENOrdering Facility: [facility] Address: [address] [place] [address] Performed By: #### 5 7021-8 ####[facility] LABORATORYCLIA [id number] [address] STATES [facility] MCV (RBC) [Entitic vol] 116.3 fL High 80.0-100.0 [facility] Comment on above: Order Comment: Speci men Type: BLOOD SPECIMENOrdering Facility: [facility] Address: [address] [place] [address] Performed By: #### 5 7021-8 ####[facility] LABORATORYCLIA [id number] [address] Monocytes (Bld) [#/Vol] 1.06 10*3/uL High <0.87 [facility] Comment on above: Order Comment: Speci men Type: BLOOD SPECIMENOrdering Facility: [facility] Address: [address] [address] Performed By: #### 5 7021-8 ####[facility] LABORATORYCLIA [id number] [address] [place] Monocytes/100 WBC (Bld) 15.3 % Normal [facility] Comment on above: Order Comment: Speci men Type: BLOOD SPECIMENOrdering Facility: [facility] Address: [address] [address] Performed By: #### 5 7021-8 ####[facility] LABORATORYCLIA [id number] [place] [address] [place] Neutrophils (Bld) [#/Vol] 4.50 10*3/uL Normal 1.45-7.50 [facility] Comment on above: Order Comment: Speci men Type: BLOOD SPECIMENOrdering Facility: [facility] Address: [address] [address] Performed By: #### 5 7021-8 ####[facility] LABORATORYCLIA [id number] [address] [place] Neutrophils/100 WBC (Bld) 65.0 % Normal [facility] Comment on above: Order Comment: Speci men Type: BLOOD SPECIMENOrdering Facility: [facility] Address: [address] [address] Performed By: #### 5 7021-8 ####[facility] LABORATORYCLIA [id number] [place] [address] [place] Nucleated RBC (Bld) [#/Vol] 0.03 10*3/uL High <0.01 [facility] Comment on above: Order Comment: Speci men Type: BLOOD SPECIMENOrdering Facility: [facility] Address: [address] [address] Performed By: #### 5 7021-8 ####[facility] LABORATORYCLIA [id number] [place] [address] [place] Nucleated RBC/100 WBC (Bld) [Ratio] 0.4 /100 WBC Normal [facility] Comment on above: Order Comment: Speci men Type: BLOOD SPECIMENOrdering Facility: [facility] Address: [address] [place] [address] Performed By: #### 5 7021-8 ####[facility] LABORATORYCLIA [id number] [place] [address] [place] Platelet mean volume (Bld) [Entitic vol] 11.3 fL Normal 9.0-12.7 [facility] Comment on above: Order Comment: Speci men Type: BLOOD SPECIMENOrdering Facility: [facility] Address: [address] [place] [address] Performed By: #### 5 7021-8 ####[facility] LABORATORYCLIA [id number] [address] [place] Platelets (Bld) [#/Vol] 289 10*3/uL Normal 150-400 [facility] Comment on above: Order Comment: Speci men Type: BLOOD SPECIMENOrdering Facility: [facility] Address: [address] [place] [address] Performed By: #### 5 7021-8 ####[facility] LABORATORYCLIA [id number] [place] [address] [place] RBC (Bld) [#/Vol] 2.08 10*6/uL Low 4.20-6.00 [facility] Comment on above: Order Comment: Speci men Type: BLOOD SPECIMENOrdering Facility: [facility] Address: [address] [place] [address] Performed By: #### 5 7021-8 ####[facility] LABORATORYCLIA [id number] [address] [place] WBC (Bld) [#/Vol] 6.93 10*3/uL Normal 3.70-11.00 [facility] Comment on above: Order Comment: Speci men Type: BLOOD SPECIMENOrdering Facility: [facility] Address: [address] [address] Performed By: #### 5 7021-8 ####[facility] LABORATORYCLIA [id number] [place] [address] [place] CNOVSPon 11-05-2022 CNOVSP Normal [facility] COPPER BLOODon 11-05-2022 Copper [Mass/Vol] 100 ug/dL Normal 70-140 [facility] Comment on above: Order Comment: Speci men Type: BLOOD SPECIMENOrdering Facility: [facility] Address: [address] [address] Result Comment: This test was developed and its performance characteristics determined by [facility]'s [facility] Center[facility]ri[facility] Medicine [place] ([facility]). It has not been cleared or approved by the FDA. -[facility] is regulated under CLIA as qualified to perform high-complexity testing. This test is used for clinical purposes. It should not be regarded as investigational or for research. Performed By: #### C OPPER ####[facility] LABCLIA [id number] [place] [address] [place] EPO SerPl-aCncon 11-05-2022 Erythropoietin (EPO) Qn 79.6 mIU/mL High 2.6-18.5 [facility] Comment on above: Order Comment: Speci men Type: BLOOD SPECIMENOrdering Facility: [facility] Address: [address] [place] [address] Performed By: #### 1 5061-5 ####[facility] LABCLIA [id number] [place] [address] [place] BONE MARROW ANALYSISon 10-24 ADDENDUM 1: Normal [facility] Comment on above: Order Comment: Speci men Type: BONE MARROW SPECIMENOrdering Facility: [facility] Address: [address] [place] [address] Result Comment: Cyto genetics (see separate report) revealed a normal male karyotype: 46,XY[20]. The myeloid NGS panel (see separate report) identified the following variants (with VAFs): SF3B1 p.H662Q (41.7%) and TET2 p.E7629Vdf*6 (46%). The overall findings are consistent with [...] 3:48 PM Performed By: #### B MRT ####[facility] LABORATORYCLIA [id number] [address] ADDENDUM 2: Normal [facility] Comment on above: Order Comment: Speci men Type: BONE MARROW SPECIMENOrdering Facility: [facility] Address: [address] [place], [place] [id number] Result Comment: The gross description for part A is as follows:A. BONE MARROW ASPIRATE LEFT POSTERIOR ILIAC CRESTReceived are air-dried bone marrow aspirate smears. Submitted for light microscopy.Addendum electronically signed by Nnamdi Hernandez MD on 11/12/2022 at 4:01 PM Performed By: #### B MRT ####[facility] LABORATORYCLIA [id number] [address] [place] CASE REPORT Normal [facility] Comment on above: Order Comment: Speci men Type: BONE MARROW SPECIMENOrdering Facility: [facility] Address: [address] [place] [address] Result Comment: Bone Marrow Pathology Report Case: [id number] Provider: Randa Rowell DO Collected: 10/24/2022 12:31 PMOrdering Location: [facility] Received: 10/24/2022 02:31 PM INTERVENTIONAL RADIOLOGYPathologist: MATTHIAS Ordonezpecimens: A) - BONE MARROW ASPIRATE LEFT POSTERIOR ILIAC CREST B) - BONE MARROW BIOPSY LEFT POSTERIOR ILIAC CREST C) - BONE MARROW CLOT LEFT POSTERIOR ILIAC CREST Performed By: #### B MRT ####[facility] LABORATORYCLIA [id number] [address] DIAGNOSIS COMMENT Normal [facility] Comment on above: Order Comment: Speci men Type: BONE MARROW SPECIMENOrdering Facility: [facility] Address: [address] [place] [address] Performed By: #### B MRT ####[facility] LABORATORYCLIA [id number] [address] FINAL DIAGNOSIS Normal [facility] Comment on above: Order Comment: Speci men Type: BONE MARROW SPECIMENOrdering Facility: [facility] Address: [address] [place] [address] Result Comment: A-C. 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 Performed By: #### B MRT ####[facility] LABORATORYCLIA [id number] [address] FINAL PERFORMING LAB Normal [facility] Comment on above: Order Comment: Speci men Type: BONE MARROW SPECIMENOrdering Facility: [facility] Address: [address] [place] [address] Result Comment: Diag nostic interpretation performed at [facility], [address] [place] [address] CLIA# [id number] Director: Ned Meza M.D. Performed By: #### B MRT ####[facility] LABORATORYCLIA [id number] [address] GROSS DESCRIPTION Normal [facility] Comment on above: Order Comment: Speci men Type: BONE MARROW SPECIMENOrdering Facility: [facility] Address: [address] [place] [address] Result Comment: B. B ONE MARROW BIOPSY LEFT POSTERIOR ILIAC CRESTReceived in formalin 1 segment of cylindrical tissue aggregating to 0.9 x 0.2 x 0.2 cm, nesbitt to red-brown and of a firm consistency. Totally submitted in formalin in one cassette after decalcification.Gross examination performed at [facility], [address] [place] [address] CLIA# [id number]. BONE MARROW CLOT LEFT POSTERIOR ILIAC CRESTReceived in formalin are multiple nesbitt, soft feathery segments of tissue and a segment of red-brown hemorrhagic material aggregating to 2.0 x 1.6 x 0.4 cm. Totally submitted in one cassette.Gross examination performed at [facility], [address] [place] [address] CLIA# [id number] Gross examination performed at [facility], [address] [place], [place] [address]KVB October 27, 2022 2:42 PM Performed By: #### B MRT ####[facility] LABORATORYCLIA [id number] [address] MICROSCOPIC DESCRIPTION Normal [facility] Comment on above: Order Comment: Speci men Type: BONE MARROW SPECIMENOrdering Facility: [facility] Address: [address] [place] [address] Result Comment: DESIREE PHERAL BLOOD:CBC DiffWBC 6.01 k/uL Neut% 68.1 %Hemoglobin 8.4 g/dL Lymph% 17.6 %MCV 113.1 fL Ward% 11.1 %RDW-CV 18.8 % Eosin% 1.7 %Platelet [...] NGS pending. Performed By: #### B MRT ####[facility] LABORATORYCLIA [id number] [address] [place] BRIEF OP NOTon 10-24-2022 BRIEF OP NOT Normal [facility] CBC W Auto Differential pane l (Bld)on 10-24-2022 Basophils (Bld) [#/Vol] 0.05 10*3/uL Normal <0.11 [facility] Comment on above: Order Comment: Speci men Type: BLOOD SPECIMENOrdering Facility: [facility] Address: [address] [place] [address] Performed By: #### 5 7021-8 ####[facility] LABORATORYCLIA [id number] [address] [place] Basophils/100 WBC (Bld) 0.8 % Normal [facility] Comment on above: Order Comment: Speci men Type: BLOOD SPECIMENOrdering Facility: [facility] Address: [address] [place] [address] Performed By: #### 5 7021-8 ####[facility] LABORATORYCLIA [id number] [address] [place] Differential cell count method Nom (Bld) Auto Normal [facility] Comment on above: Order Comment: Speci men Type: BLOOD SPECIMENOrdering Facility: [facility] Address: [address] [place] [address] Performed By: #### 5 7021-8 ####[facility] LABORATORYCLIA [id number] [place] [address] [place] Eosinophils (Bld) [#/Vol] 0.10 10*3/uL Normal <0.46 [facility] Comment on above: Order Comment: Speci men Type: BLOOD SPECIMENOrdering Facility: [facility] Address: [address] [place] [address] Performed By: #### 5 7021-8 ####[facility] LABORATORYCLIA [id number] [address] [place] Eosinophils/100 WBC (Bld) 1.7 % Normal [facility] Comment on above: Order Comment: Speci men Type: BLOOD SPECIMENOrdering Facility: [facility] Address: [address] [place] [address] Performed By: #### 5 7021-8 ####[facility] LABORATORYCLIA [id number] [address] Erythrocyte distribution width (RBC) [Ratio] 18.8 % High 11.5-15.0 [facility] Comment on above: Order Comment: Speci men Type: BLOOD SPECIMENOrdering Facility: [facility] Address: [address] [place] [address] Performed By: #### 5 7021-8 ####[facility] LABORATORYCLIA [id number] [address] OF [facility] Hematocrit (Bld) [Volume fraction] 25.0 % Low 39.0-51.0 [facility] Comment on above: Order Comment: Speci men Type: BLOOD SPECIMENOrdering Facility: [facility] Address: [address] [place] [address] Performed By: #### 5 7021-8 ####[facility] LABORATORYCLIA [id number] [address] OF [facility] Hemoglobin (Bld) [Mass/Vol] 8.4 g/dL Low 13.0-17.0 [facility] Comment on above: Order Comment: Speci men Type: BLOOD SPECIMENOrdering Facility: [facility] Address: [address] [place] [address] Performed By: #### 5 7021-8 ####[facility] LABORATORYCLIA [id number] [address] [place] Immature granulocytes (Bld) [#/Vol] 0.04 10*3/uL Normal <0.10 [facility] Comment on above: Order Comment: Speci men Type: BLOOD SPECIMENOrdering Facility: [facility] Address: [address] [place] [address] Performed By: #### 5 7021-8 ####[facility] LABORATORYCLIA [id number] [address] [place] Immature granulocytes/100 WBC (Bld) 0.7 % Normal [facility] Comment on above: Order Comment: Speci men Type: BLOOD SPECIMENOrdering Facility: [facility] Address: [address] [place] [address] Performed By: #### 5 7021-8 ####[facility] LABORATORYCLIA [id number] [address] Lymphocytes (Bld) [#/Vol] 1.06 10*3/uL Normal 1.00-4.00 [facility] Comment on above: Order Comment: Speci men Type: BLOOD SPECIMENOrdering Facility: [facility] Address: [address] [address] Performed By: #### 5 7021-8 ####[facility] LABORATORYCLIA [id number] [address] Lymphocytes/100 WBC (Bld) 17.6 % Normal [facility] Comment on above: Order Comment: Speci men Type: BLOOD SPECIMENOrdering Facility: [facility] Address: [address] [place] [address] Performed By: #### 5 7021-8 ####[facility] LABORATORYCLIA [id number] [address] MCH (RBC) [Entitic mass] 38.0 pg High 26.0-34.0 [facility] Comment on above: Order Comment: Speci men Type: BLOOD SPECIMENOrdering Facility: [facility] Address: [address] [place] [address] Performed By: #### 5 7021-8 ####[facility] LABORATORYCLIA [id number] [address] STATES [facility] MCHC (RBC) [Mass/Vol] 33.6 g/dL Normal 30.5-36.0 [facility] Comment on above: Order Comment: Speci men Type: BLOOD SPECIMENOrdering Facility: [facility] Address: [address] [place] [address] Performed By: #### 5 7021-8 ####[facility] LABORATORYCLIA [id number] [place] [address] [place] MCV (RBC) [Entitic vol] 113.1 fL High 80.0-100.0 [facility] Comment on above: Order Comment: Speci men Type: BLOOD SPECIMENOrdering Facility: [facility] Address: [address] [place] [address] Performed By: #### 5 7021-8 ####[facility] LABORATORYCLIA [id number] [place] [address] [place] Monocytes (Bld) [#/Vol] 0.67 10*3/uL Normal <0.87 [facility] Comment on above: Order Comment: Speci men Type: BLOOD SPECIMENOrdering Facility: [facility] Address: [address] [place] [address] Performed By: #### 5 7021-8 ####[facility] LABORATORYCLIA [id number] [address] [place] Monocytes/100 WBC (Bld) 11.1 % Normal [facility] Comment on above: Order Comment: Speci men Type: BLOOD SPECIMENOrdering Facility: [facility] Address: [address] [place] [address] Performed By: #### 5 7021-8 ####[facility] LABORATORYCLIA [id number] [address] [place] Neutrophils (Bld) [#/Vol] 4.09 10*3/uL Normal 1.45-7.50 [facility] Comment on above: Order Comment: Speci men Type: BLOOD SPECIMENOrdering Facility: [facility] Address: [address] [place] [address] Performed By: #### 5 7021-8 ####[facility] LABORATORYCLIA [id number] [address] [place] Neutrophils/100 WBC (Bld) 68.1 % Normal [facility] Comment on above: Order Comment: Speci men Type: BLOOD SPECIMENOrdering Facility: [facility] Address: [address] [place] [address] Performed By: #### 5 7021-8 ####[facility] LABORATORYCLIA [id number] [address] [place] Nucleated RBC (Bld) [#/Vol] 0.05 10*3/uL High <0.01 [facility] Comment on above: Order Comment: Speci men Type: BLOOD SPECIMENOrdering Facility: [facility] Address: [address] [place] [address] Performed By: #### 5 7021-8 ####[facility] LABORATORYCLIA [id number] [address] [place] Nucleated RBC/100 WBC (Bld) [Ratio] 0.8 /100 WBC Normal [facility] Comment on above: Order Comment: Speci men Type: BLOOD SPECIMENOrdering Facility: [facility] Address: [address] [place] [address] Performed By: #### 5 7021-8 ####[facility] LABORATORYCLIA [id number] [address] [place] Platelet mean volume (Bld) [Entitic vol] 11.5 fL Normal 9.0-12.7 [facility] Comment on above: Order Comment: Speci men Type: BLOOD SPECIMENOrdering Facility: [facility] Address: [address] [place] [address] Performed By: #### 5 7021-8 ####[facility] LABORATORYCLIA [id number] [address] [place] Platelets (Bld) [#/Vol] 251 10*3/uL Normal 150-400 [facility] Comment on above: Order Comment: Speci men Type: BLOOD SPECIMENOrdering Facility: [facility] Address: [address] [place] [address] Performed By: #### 5 7021-8 ####[facility] LABORATORYCLIA [id number] [address] [place] RBC (Bld) [#/Vol] 2.21 10*6/uL Low 4.20-6.00 [facility] Comment on above: Order Comment: Speci men Type: BLOOD SPECIMENOrdering Facility: [facility] Address: [address] [address] Performed By: #### 5 7021-8 ####[facility] LABORATORYCLIA [id number] [address] WBC (Bld) [#/Vol] 6.01 10*3/uL Normal 3.70-11.00 [facility] Comment on above: Order Comment: Speci men Type: BLOOD SPECIMENOrdering Facility: [facility] Address: [address] [address] Performed By: #### 5 7021-8 ####[facility] LABORATORYIA [id number] [address] OF [facility] Basophils (Bld) [#/Vol] 0.05 10*3/uL <0.11 k/uL [facility] Basophils/100 WBC (Bld) 0.8 % [facility] Differential cell count method Nom (Bld) Auto [facility] Eosinophils (Bld) [#/Vol] 0.10 10*3/uL <0.46 k/uL [facility] Eosinophils/100 WBC (Bld) 1.7 % [facility] Erythrocyte distribution width (RBC) [Ratio] 18.8 % High 11.5 - 15.0 % [facility] Hematocrit (Bld) [Volume fraction] 25.0 % Low 39.0 - 51.0 % [facility] Hemoglobin (Bld) [Mass/Vol] 8.4 g/dL Low 13.0 - 17.0 g/dL [facility] Immature granulocytes (Bld) [#/Vol] 0.04 10*3/uL <0.10 k/uL [facility] Immature granulocytes/100 WBC (Bld) 0.7 % [facility] Lymphocytes (Bld) [#/Vol] 1.06 10*3/uL 1.00 - 4.00 k/uL [facility] Lymphocytes/100 WBC (Bld) 17.6 % [facility] MCH (RBC) [Entitic mass] 38.0 pg High 26.0 - 34.0 pg [facility] MCHC (RBC) [Mass/Vol] 33.6 g/dL 30.5 - 36.0 g/dL [facility] MCV (RBC) [Entitic vol] 113.1 fL High 80.0 - 100.0 fL [facility] Monocytes (Bld) [#/Vol] 0.67 10*3/uL <0.87 k/uL [facility] Monocytes/100 WBC (Bld) 11.1 % [facility] Neutrophils (Bld) [#/Vol] 4.09 10*3/uL 1.45 - 7.50 k/uL [facility] Neutrophils/100 WBC (Bld) 68.1 % [facility] Nucleated RBC (Bld) [#/Vol] 0.05 10*3/uL High <0.01 k/uL [facility] Nucleated RBC/100 WBC (Bld) [Ratio] 0.8 /100 WBC [facility] Platelet mean volume (Bld) [Entitic vol] 11.5 fL 9.0 - 12.7 fL [facility] Platelets (Bld) [#/Vol] 251 10*3/uL 150 - 400 k/uL [facility] RBC (Bld) [#/Vol] 2.21 10*6/uL Low 4.20 - 6.00 m/uL [facility] WBC (Bld) [#/Vol] 6.01 10*3/uL 3.70 - 11.00 k/uL [facility] CHROM ANAL W RFX MDS FISHon 10-24-2022 CHROM ANLY W/RFLX MDS FISH Normal [facility] Comment on above: Order Comment: Speci men Type: BONE MARROW SPECIMENOrdering Facility: [facility] Address: [address] [place], [place] [id number] Result Comment: Woodrow hurst Accession Number: [id number]: Randa RowellPathologist: MarySurgical Pathology No: [id number] diagnosis: Macrocytic anemiaSpecimen Type: Bone marrowReceived Date: [...] reviewed by Gypsy Johns MD, PhDPerformed by [facility] HospitalPathology [facility] Laboratory Medicine InstituteDivision of Molecular PathologyCytogenetics Lab, [facility]-[id number] [place], [place] [address]Phone: Toll free: Performed By: #### C HRMDS ####[facility] TripHoboSCLIA [id number] [address] [place] CT BONE MARROW BX AND ASPIRA TIONon 10-24-2022 CT BONE MARROW BX AND ASPIRATION Normal [facility] DNA EXTRACTION BONE MARROW ( BUFFY COAT)on 10-24-2022 DNA EXTRACTION BONE MARROW (BUFFY COAT) Normal [facility] Comment on above: Order Comment: Speci men Type: BONE MARROW SPECIMENOrdering Facility: [facility] Address: [address] [place] [address] Result Comment: This specimen was received and successfully processed for future DNA purification should molecular testing be needed. Specimens will be available for 3 years from date of collection.To order testing on this specimen for [facility] patients, please place an [facility] order for DNA and RNA Clinical Testing ([id number]). To order testing for patients outside of the [facility] system, please request DNA and RNA for Clinical Testing, order code [id number].If additional paperwork is required for testing, please send completed forms via secure email to . Performed By: #### N UCBUF ####[facility] ILLUMINA LIMSCLIA [id number] [address] [place] FLOW CYTOMETRY BONE MARROW H OLD (BMHOLD)on 10-24-2022 FLOW CYTOMETRY ORDER STATUS See Results in chart under F case ID Normal [facility] Comment on above: Order Comment: Speci men Type: BONE MARROW SPECIMENOrdering Facility: [facility] Address: [address] [address] Performed By: #### B MHOLD ####[facility] LABCLIA [id number] [address] FLT3 ITD HN BONE MARROWon CLARITY SIGNOUT PATHOLOGIST [id number] Normal [facility] Comment on above: Order Comment: Speci men Type: BONE MARROW SPECIMENOrdering Facility: [facility] Address: [address] [address] Performed By: #### F 3IM, MYMNGS ####[facility] ILLUMINA LIMSCLIA [id number] [address] FLT3 ITD HN PANEL BONE MARROW Normal [facility] Comment on above: Order Comment: Speci men Type: BONE MARROW SPECIMENOrdering Facility: [facility] Address: [address] [place] [address] Result Comment: FLT3 Internal Tandem Duplication (ITD) Mutation TestingLaboratory Accession Number: [id number] Internal Tandem Duplication (ITD) mutation: Not DetectedComment:FLT3/ITD [...] from the specimen provided. Regions of the PTD4ekppdetn kinase receptor gene are subjected to the [...] clinical implications.Blood Rev.2013;27:13-22.2) Alphonse CARLOS, Neema M, Arthur ME, et al. Prognostic relevance ofintegrated genetic profiling in acute myeloid leukemia. N Engl J Med.2012 Jan 28;366 (12):1079-89.3) Harinder H, Aden E, Davy Nuñez, et al. Diagnosis and mangement ofAML in adults: 2017 ELN recommendations from an international expertpanel. Blood 129,424-448 (2017).Disclaimer:This test was developed and its performance characteristics determinedby [facility]'s [facility] Pathology and LaboratoryMedicine [place] ([facility]). It has not been cleared or approved bythe FDA. RT-PLMI is regulated under CLIA as certified to perform high-complexity testing. This test is used for clinical purposes. It shouldnot be regarded as investigational or for research.Testing and interpretation performed at [facility], [address] [place] [address]. CLIA Number: [id number] reviewed by Tahmina Duong, PhD, [facility] Performed By: #### F 3IM, MYCATARINO ####CLARITY OnSwipe LIMSCLIA [id number] [place] [address] [place] HISTORY PHYSICALon 2 HISTORY PHYSICAL Normal [facility] IMAGING GUIDED BONE MARROW B IOPSY AND ASPIRATION (SHAUN)([place] AV,[facility])on 10-24-2022 [facility] MYELOID NGS PANEL BONE MARRO Won 10-24-2022 MYELOID NGS PANEL BONE MARROW Normal [facility] Comment on above: Order Comment: Speci men Type: BONE MARROW SPECIMENOrdering Facility: [facility] Address: [address] [place] [address] Result Comment: Myel oid NGS Panel Bone MarrowLaboratory Accession Number: [id number]:Please see linked document and/or separate report for full result whenavailable.As reviewed by Laron Jeong MD Performed By: #### F 3IM, MYMNGS ####CLARITY ILLUMINA LIMSCLIA [id number] [address] OF [facility] PT panel Coag (PPP)on 2021 INR Coag (PPP) [Relative time] 1.3 {INR} Normal 0.9-1.3 [facility] Comment on above: Order Comment: Elfego gilbert Type: BLOOD SPECIMENOrdering Facility: [facility] Address: [address] [place] [address] Result Comment: Tanna min K Antagonist (VKA) Therapeutic Range: INR 2 to 3 (Target INR of 2.5)Note: For patients treated with VKA drugs, such as warfarin, the [place] [employer] 2012 Guideline recommends [...] 70: 252-289 Performed By: #### 3 4528-0 ####[facility] LABORATORYCLIA [id number] [address] [place] PT Coag (PPP) [Time] 13.5 s High 9.7-13.0 [facility] Comment on above: Order Comment: Speci men Type: BLOOD SPECIMENOrdering Facility: [facility] Address: [place] [address] Performed By: #### 3 4528-0 ####[facility] LABORATORYCLIA [id number] [place] [address] [place] INR Coag (PPP) [Relative time] 1.3 {INR} 0.9 - 1.3 [facility] PT Coag (PPP) [Time] 13.5 s High 9.7 - 1 3.0 sec [facility] CNOVon 10-16-2022 CNOV Normal [facility] CNOVSPon 10-09-2022 CNOVSP Normal [facility] CNPNon 10-09-2022 CNPN Normal [facility] CNPNon 09-19-2022 CNPN [facility] HISTORY PHYSICALon HISTORY PHYSICAL HNO ID: [id number] Author: Baljinder Trevizo MD Service: Pain Management [...] reported polyps per patient recollection Hypertension Hypothyroidism [facility] current use of anticoagulants with INR goal [...] RIGHT OP SURGERY Right 12/18/2020 Dr Arreola [facility] ARTHROPLASTY TOTAL SHOULDER 11/09/2008 right ARTHROSCOPY OF JOINT UNLISTED Elbow right CABG (4) VEIN GRAFTS AND ARTERIAL GRAFT(S) 07/21/2021 In [facility] COLONOSCOPY FLX DX W/COLLJ SPEC WHEN [...] July 29, 2022 TIME: 11:24 AM Normal [facility] NURSING PROGon 07-29-2022 NURSING PROG HNO ID: [id number] Author: Alice Armstrong RN Service: Nursing Author [...] and rest. Friend verbalizes unentertaining of this. [facility] OPERATIVE NOon 07-29-2022 OPERATIVE NO HNO ID: [id number] Author: Baljinder Trevizo MD Service: Pain Management [...] DATE: August 01, 2022 TIME: 12:26 PM [facility] XR FLUOROSCOPYon 07-29-2022 XR FLUOROSCOPY * * *Final Report* * * DATE OF EXAM: Jul 29 2022 12:00PM [facility] 5513 - XR FLUOROSCOPY / PROCEDURE REASON: pain * * * * Physician Interpretation * * * * TECHNIQUE: XR FLUOROSCOPY COMPARISON: No prior study for comparison. TECHNIQUE: 5 limited fluoroscopic images of the lumbar spine CLINICAL INDICATION: pain Fluoroscopic Radiation Summary: Plane A, Air Kerma: 11.0 mGy Dose Area Product (DAP): 1511.3 mGy*cm^2 Fluoro time: 0:24 min:sec IMAGE NUMBER: 5 RESULT: [place] directed at the the lower lumbar spine and sacrum. IMPRESSION: 1. As above. Talcer: PSCB Transcribe Date/Time: Jul 29 2022 12:07P Dictated by : JONATHON FUNG MD This examination was interpreted and the report reviewed and electronically signed by: JONATHON FUNG MD on Jul 29 2022 12:08PM EST [id number] [facility] Basic metabolic 2000 panelon 07-24-2022 Anion gap [Moles/Vol] 11 mmol/L Normal 9-18 [facility] Comment on above: Order Comment: Speci men Type: BLOOD SPECIMENOrdering Facility: [facility] Address: [address] [address] Performed By: #### 2 4321-2 ####[facility] LABORATORYCLIA [id number] [place] [address] [place] Calcium [Mass/Vol] 9.0 mg/dL Normal 8.5-10.2 [facility] Comment on above: Order Comment: Speci men Type: BLOOD SPECIMENOrdering Facility: [facility] Address: [address] [place] [address] Performed By: #### 2 4321-2 ####[facility] LABORATORYCLIA [id number] [place] [address] [place] Chloride [Moles/Vol] 100 mmol/L Normal 97-105 [facility] Comment on above: Order Comment: Speci men Type: BLOOD SPECIMENOrdering Facility: [facility] Address: [address] [place] [address] Performed By: #### 2 4321-2 ####[facility] LABORATORYCLIA [id number] [place] [address] [place] CO2 [Moles/Vol] 29 mmol/L Normal 22-30 [facility] Comment on above: Order Comment: Speci men Type: BLOOD SPECIMENOrdering Facility: [facility] Address: [address] [place] [address] Performed By: #### 2 4321-2 ####[facility] LABORATORYCLIA [id number] [place] [address] [place] Creatinine [Mass/Vol] 1.18 mg/dL Normal 0.73-1.22 [facility] Comment on above: Order Comment: Speci men Type: BLOOD SPECIMENOrdering Facility: [facility] Address: [address] [place] [address] Performed By: #### 2 4321-2 ####[facility] LABORATORYCLIA [id number] [address] [place] ESTIMATED GLOMERULAR FILTRATION RATE 60 mL/min/1.73m??? Normal >=60 [facility] Comment on above: Order Comment: Elfego gilbert Type: BLOOD SPECIMENOrdering Facility: [facility] Address: [address] [id number] Result Comment: Concepción mated Glomerular Filtration Rate [...] actual GFR. Performed By: #### 2 4321-2 ####[facility] LABORATORYCLIA [id number] [place] [address] [place] Glucose [Mass/Vol] 104 mg/dL High 74-99 [facility] Comment on above: Order Comment: Elfego gilbert Type: BLOOD SPECIMENOrdering Facility: [facility] Address: [address] [place] [address] Result Comment: The [place] Diabetes Association (ADA) provides guidance for cutoff [...] Standards of Medical Care in Diabetes 2016, [place] [employer]. Diabetes Care. 2016.39(Suppl 1). Performed By: #### 2 4321-2 ####[facility] LABORATORYCLIA [id number] [place] [address] [place] Potassium [Moles/Vol] 4.3 mmol/L Normal 3.7-5.1 [facility] Comment on above: Order Comment: Elfego gilbert Type: BLOOD SPECIMENOrdering Facility: [facility] Address: [address] Performed By: #### 2 4321-2 ####[facility] LABORATORYCLIA [id number] [place] [address] [place] Sodium [Moles/Vol] 140 mmol/L Normal 136-144 [facility] Comment on above: Order Comment: Speci men Type: BLOOD SPECIMENOrdering Facility: [facility] Address: [address] [place] [address] Performed By: #### 2 4321-2 ####[facility] LABORATORYCLIA [id number] [place] [address] [place] Urea nitrogen [Mass/Vol] 40 mg/dL High 9-24 [facility] Comment on above: Order Comment: Speci men Type: BLOOD SPECIMENOrdering Facility: [facility] Address: [address] [place] [address] Performed By: #### 2 4321-2 ####[facility] LABORATORYCLIA [id number] [place] [address] [place] CNOVon 07-17-2022 CNOV Normal [facility] CNPNon 07-10-2022 CNPN Normal [facility] Basic metabolic 2000 panelon 07-09-2022 Anion gap [Moles/Vol] 7 mmol/L Low 9-18 [facility] Comment on above: Order Comment: Speci men Type: BLOOD SPECIMENOrdering Facility: [facility] Address: [address] [place] [address] Performed By: #### 2 4321-2 ####[facility] LABORATORYCLIA [id number] [place] [address] [place] Calcium [Mass/Vol] 9.1 mg/dL Normal 8.5-10.2 [facility] Comment on above: Order Comment: Speci men Type: BLOOD SPECIMENOrdering Facility: [facility] Address: [address] [place] [address] Performed By: #### 2 4321-2 ####[facility] LABORATORYCLIA [id number] [place] [address] [place] Chloride [Moles/Vol] 97 mmol/L Normal 97-105 [facility] Comment on above: Order Comment: Speci men Type: BLOOD SPECIMENOrdering Facility: [facility] Address: [address] [place] [address] Performed By: #### 2 4321-2 ####[facility] LABORATORYCLIA [id number] [place] [address] [place] CO2 [Moles/Vol] 32 mmol/L High 22-30 [facility] Comment on above: Order Comment: Speci men Type: BLOOD SPECIMENOrdering Facility: [facility] Address: [address] [place] [address] Performed By: #### 2 4321-2 ####[facility]OSPITALCLIA [id number] [address] STATES OF [facility] Creatinine [Mass/Vol] 1.04 mg/dL Normal 0.73-1.22 [facility] Comment on above: Order Comment: Speci men Type: BLOOD SPECIMENOrdering Facility: [facility] Address: [address] [place] [address] Performed By: #### 2 4321-2 ####[facility] LABORATORYCLIA [id number] [address] ESTIMATED GLOMERULAR FILTRATION RATE 70 mL/min/1.73m??? Normal >=60 [facility] Comment on above: Order Comment: Speci men Type: BLOOD SPECIMENOrdering Facility: [facility] Address: [address] [place] [address] Result Comment: Concepción mated Glomerular Filtration Rate [...] actual GFR. Performed By: #### 2 4321-2 ####[facility] LABORATORYCLIA [id number] [place] [address] [place] Glucose [Mass/Vol] 96 mg/dL Normal 74-99 [facility] Comment on above: Order Comment: Speci men Type: BLOOD SPECIMENOrdering Facility: [facility] Address: [address] [place] [address] Result Comment: The [place] Diabetes Association (ADA) provides guidance for cutoff [...] Standards of Medical Care in Diabetes 2016, [place] Diabetes Association. Diabetes Care. 2016.39(Suppl 1). Performed By: #### 2 4321-2 ####[facility] LABORATORYCLIA [id number] [place] [address] [place] Potassium [Moles/Vol] 4.4 mmol/L Normal 3.7-5.1 [facility] Comment on above: Order Comment: Elfego gilbert Type: BLOOD SPECIMENOrdering Facility: [facility] Address: [address] [place] [address] Performed By: #### 2 4321-2 ####[facility] LABORATORYCLIA [id number] [place] [address] [place] Sodium [Moles/Vol] 136 mmol/L Normal 136-144 [facility] Comment on above: Order Comment: Julii men Type: BLOOD SPECIMENOrdering Facility: [facility] Address: [address] [place] [address] Performed By: #### 2 4321-2 ####[facility] LABORATORYCLIA [id number] [place] [address] [place] Urea nitrogen [Mass/Vol] 26 mg/dL High 9-24 [facility] Comment on above: Order Comment: Speci men Type: BLOOD SPECIMENOrdering Facility: [facility] Address: [address] [place] [address] Performed By: #### 2 4321-2 ####[facility] LABORATORYCLIA [id number] [address] CASE MANAGEMon 07-09-2022 CASE MANAGEM Normal [facility] CBC W Auto Differential pane l (Bld)on 07-09-2022 Basophils (Bld) [#/Vol] 0.07 10*3/uL Normal <0.11 [facility] Comment on above: Order Comment: Speci men Type: BLOOD SPECIMENOrdering Facility: [facility] Address: [address] [place] [address] Performed By: #### 5 7021-8 ####[facility] LABORATORYCLIA [id number] [address] STATES [facility] Basophils/100 WBC (Bld) 1.0 % Normal [facility] Comment on above: Order Comment: Speci men Type: BLOOD SPECIMENOrdering Facility: [facility] Address: [address] [place] [address] Performed By: #### 5 7021-8 ####[facility] LABORATORYCLIA [id number] [address] [place] Differential cell count method Nom (Bld) Auto Normal [facility] Comment on above: Order Comment: Speci men Type: BLOOD SPECIMENOrdering Facility: [facility] Address: [address] [place] [address] Performed By: #### 5 7021-8 ####[facility] LABORATORYCLIA [id number] [place] [address] [place] Eosinophils (Bld) [#/Vol] 0.13 10*3/uL Normal <0.46 [facility] Comment on above: Order Comment: Speci men Type: BLOOD SPECIMENOrdering Facility: [facility] Address: [address] [address] Performed By: #### 5 7021-8 ####[facility] LABORATORYCLIA [id number] [address] Eosinophils/100 WBC (Bld) 1.8 % Normal [facility] Comment on above: Order Comment: Speci men Type: BLOOD SPECIMENOrdering Facility: [facility] Address: [address] [place] [address] Performed By: #### 5 7021-8 ####[facility] LABORATORYCLIA [id number] [address] Erythrocyte distribution width (RBC) [Ratio] 19.8 % High 11.5-15.0 [facility] Comment on above: Order Comment: Speci men Type: BLOOD SPECIMENOrdering Facility: [facility] Address: [address] [place] [address] Performed By: #### 5 7021-8 ####[facility] LABORATORYCLIA [id number] [address] Hematocrit (Bld) [Volume fraction] 26.9 % Low 39.0-51.0 [facility] Comment on above: Order Comment: Speci men Type: BLOOD SPECIMENOrdering Facility: [facility] Address: [address] [place] [address] Performed By: #### 5 7021-8 ####[facility] LABORATORYCLIA [id number] [address] [place] Hemoglobin (Bld) [Mass/Vol] 9.1 g/dL Low 13.0-17.0 [facility] Comment on above: Order Comment: Speci men Type: BLOOD SPECIMENOrdering Facility: [facility] Address: [address] [place] [address] Performed By: #### 5 7021-8 ####[facility] LABORATORYCLIA [id number] [address] IMMATURE GRAN % 0.4 % Normal [facility] Comment on above: Order Comment: Speci men Type: BLOOD SPECIMENOrdering Facility: [facility] Address: [address] [place] [address] Performed By: #### 5 7021-8 ####[facility] LABORATORYCLIA [id number] [address] IMMATURE GRAN ABS 0.03 k/uL Normal <0.10 [facility] Comment on above: Order Comment: Speci men Type: BLOOD SPECIMENOrdering Facility: [facility] Address: [address] [place] [address] Performed By: #### 5 7021-8 ####[facility] LABORATORYCLIA [id number] [address] Lymphocytes (Bld) [#/Vol] 1.31 10*3/uL Normal 1.00-4.00 [facility] Comment on above: Order Comment: Speci men Type: BLOOD SPECIMENOrdering Facility: [facility] Address: [address] [place] [address] Performed By: #### 5 7021-8 ####[facility] LABORATORYCLIA [id number] [address] Lymphocytes/100 WBC (Bld) 18.0 % Normal [facility] Comment on above: Order Comment: Speci men Type: BLOOD SPECIMENOrdering Facility: [facility] Address: [address] [place] [address] Performed By: #### 5 7021-8 ####[facility] LABORATORYCLIA [id number] [address] MCH (RBC) [Entitic mass] 37.4 pg High 26.0-34.0 [facility] Comment on above: Order Comment: Speci men Type: BLOOD SPECIMENOrdering Facility: [facility] Address: [address] [place] [address] Performed By: #### 5 7021-8 ####[facility] LABORATORYCLIA [id number] [address] [place] MCHC (RBC) [Mass/Vol] 33.8 g/dL Normal 30.5-36.0 [facility] Comment on above: Order Comment: Speci men Type: BLOOD SPECIMENOrdering Facility: [facility] Address: [address] [place] [address] Performed By: #### 5 7021-8 ####[facility] LABORATORYCLIA [id number] [address] [place] MCV (RBC) [Entitic vol] 110.7 fL High 80.0-100.0 [facility] Comment on above: Order Comment: Speci men Type: BLOOD SPECIMENOrdering Facility: [facility] Address: [address] [place] [address] Performed By: #### 5 7021-8 ####[facility] LABORATORYCLIA [id number] [place] [address] [place] Monocytes (Bld) [#/Vol] 0.98 10*3/uL High <0.87 [facility] Comment on above: Order Comment: Speci men Type: BLOOD SPECIMENOrdering Facility: [facility] Address: [address] [place] [address] Performed By: #### 5 7021-8 ####[facility] LABORATORYCLIA [id number] [address] [place] Monocytes/100 WBC (Bld) 13.5 % Normal [facility] Comment on above: Order Comment: Speci men Type: BLOOD SPECIMENOrdering Facility: [facility] Address: [address] [place] [address] Performed By: #### 5 7021-8 ####[facility] LABORATORYCLIA [id number] [address] [place] Neutrophils (Bld) [#/Vol] 4.74 10*3/uL Normal 1.45-7.50 [facility] Comment on above: Order Comment: Speci men Type: BLOOD SPECIMENOrdering Facility: [facility] Address: [address] [place] [address] Performed By: #### 5 7021-8 ####[facility] LABORATORYCLIA [id number] [address] [place] Neutrophils/100 WBC (Bld) 65.3 % Normal [facility] Comment on above: Order Comment: Speci men Type: BLOOD SPECIMENOrdering Facility: [facility] Address: [address] [place] [address] Performed By: #### 5 7021-8 ####[facility] LABORATORYCLIA [id number] [place] [address] [place] Nucleated RBC (Bld) [#/Vol] 0.02 10*3/uL High <0.01 [facility] Comment on above: Order Comment: Speci men Type: BLOOD SPECIMENOrdering Facility: [facility] Address: [address] [place] [address] Performed By: #### 5 7021-8 ####[facility] LABORATORYCLIA [id number] [address] [place] Nucleated RBC/100 WBC (Bld) [Ratio] 0.3 /100 WBC Normal [facility] Comment on above: Order Comment: Speci men Type: BLOOD SPECIMENOrdering Facility: [facility] Address: [address] [place] [address] Performed By: #### 5 7021-8 ####[facility] LABORATORYCLIA [id number] [place] [address] [place] Platelet mean volume (Bld) [Entitic vol] 11.3 fL Normal 9.0-12.7 [facility] Comment on above: Order Comment: Speci men Type: BLOOD SPECIMENOrdering Facility: [facility] Address: [address] [place] [address] Performed By: #### 5 7021-8 ####[facility] LABORATORYCLIA [id number] [place] [address] [place] Platelets (Bld) [#/Vol] 236 10*3/uL Normal 150-400 [facility] Comment on above: Order Comment: Speci men Type: BLOOD SPECIMENOrdering Facility: [facility] Address: [address] [place] [address] Performed By: #### 5 7021-8 ####[facility] LABORATORYCLIA [id number] [address] OF [facility] RBC (Bld) [#/Vol] 2.43 10*6/uL Low 4.20-6.00 [facility] Comment on above: Order Comment: Speci men Type: BLOOD SPECIMENOrdering Facility: [facility] Address: [address] [place] [address] Performed By: #### 5 7021-8 ####[facility] LABORATORYCLIA [id number] [address] OF [facility] WBC (Bld) [#/Vol] 7.26 10*3/uL Normal 3.70-11.00 [facility] Comment on above: Order Comment: Speci men Type: BLOOD SPECIMENOrdering Facility: [facility] Address: [address] [place] [address] Performed By: #### 5 7021-8 ####[facility] LABORATORYCLIA [id number] [address] [place] CNDSon 07-09-2022 CNDS Normal [facility] CASE MGT INIT ASSESon 2021 CASE MGT INIT ASSES Normal [facility] CONSULT PROGon 07-08-2022 CONSULT PROG Normal [facility] Magnesium SerPl-mCncon 07-08 Magnesium [Mass/Vol] 1.9 mg/dL Normal 1.7-2.3 [facility] Comment on above: Order Comment: Speci men Type: BLOOD SPECIMENOrdering Facility: [facility] Address: [address] [place] [address] Performed By: #### 1 9123-9, 44622-9 ####[facility] LABORATORYCLIA [id number] [address] Renal function 2000 panelon 07-08-2022 Albumin [Mass/Vol] 4.0 g/dL Normal 3.9-4.9 [facility] Comment on above: Order Comment: Speci men Type: BLOOD SPECIMENOrdering Facility: [facility] Address: [address] [place] [address] Performed By: #### 1 239, 42547-1 ####[facility]ORATORYCLIA [id number] [place] [address] [place] Anion gap [Moles/Vol] 9 mmol/L Normal 9-18 [facility] Comment on above: Order Comment: Speci men Type: BLOOD SPECIMENOrdering Facility: [facility] Address: [address] [place] [address] Performed By: #### 1 23, ####[facility] LABORATORYCLIA [id number] [place] [address] [place] Calcium [Mass/Vol] 9.2 mg/dL Normal 8.5-10.2 [facility] Comment on above: Order Comment: Speci men Type: BLOOD SPECIMENOrdering Facility: [facility] Address: [address] [place] [address] Performed By: #### 1 239, 94097-9 ####[facility] LABORATORYCLIA [id number] [place] [address] [place] Chloride [Moles/Vol] 94 mmol/L Low 97-105 [facility] Comment on above: Order Comment: Speci men Type: BLOOD SPECIMENOrdering Facility: [facility] Address: [address] [place] [address] Performed By: #### 1 239, 69315-6 ####[facility] LABORATORYCLIA [id number] [place] [address] [place] CO2 [Moles/Vol] 32 mmol/L High 22-30 [facility] Comment on above: Order Comment: Speci men Type: BLOOD SPECIMENOrdering Facility: [facility] Address: [address] [place] [address] Performed By: #### 1 91239, 24427-4 ####[facility]ORATORYCLIA [id number] [address] STATES OF [facility] Creatinine [Mass/Vol] 1.09 mg/dL Normal 0.73-1.22 [facility] Comment on above: Order Comment: Elfego gilbert Type: BLOOD SPECIMENOrdering Facility: [facility] Address: [address] [place] [address] Performed By: #### 1 9123-9, 95831-2 ####[facility] LABORATORYIA [id number] [address] ESTIMATED GLOMERULAR FILTRATION RATE 66 mL/min/1.73m??? Normal >=60 [facility] Comment on above: Order Comment: Elfego gilbert Type: BLOOD SPECIMENOrdering Facility: [facility] Address: [address] [place] [address] Result Comment: Concepción mated Glomerular Filtration Rate [...] actual GFR. Performed By: #### 1 9123-9, 25169-5 ####[facility] [id number] [address] STATES [facility] Glucose [Mass/Vol] 103 mg/dL High 74-99 [facility] Comment on above: Order Comment: Elfego gilbert Type: BLOOD SPECIMENOrdering Facility: [facility] Address: [address] [place] [address] Result Comment: The [place] Diabetes Association (ADA) provides guidance for cutoff [...] Standards of Medical Care in Diabetes 2016, [place] Diabetes Association. Diabetes Care. 2016.39(Suppl 1). Performed By: #### 1 9123-9, 46136-4 ####[facility] LABORATORYCLIA [id number] [place] [address] [place] Phosphate [Mass/Vol] 3.7 mg/dL Normal 2.7-4.8 [facility] Comment on above: Order Comment: Speci men Type: BLOOD SPECIMENOrdering Facility: [facility] Address: [address] [place] [address] Performed By: #### 1 91239, 15427-1 ####[facility] LABORATORYCLIA [id number] [place] [address] [place] Potassium [Moles/Vol] 3.9 mmol/L Normal 3.7-5.1 [facility] Comment on above: Order Comment: Speci men Type: BLOOD SPECIMENOrdering Facility: [facility] Address: [address] [place] [address] Performed By: #### 1 91239, 42882-7 ####[facility] LABORATORYCLIA [id number] [address] STATES [place] Sodium [Moles/Vol] 135 mmol/L Low 136-144 [facility] Comment on above: Order Comment: Speci men Type: BLOOD SPECIMENOrdering Facility: [facility] Address: [address] [address] Performed By: #### 1 91239, 27079-6 ####[facility] LABORATORYCLIA [id number] [place] [address] [place] Urea nitrogen [Mass/Vol] 26 mg/dL High 9-24 [facility] Comment on above: Order Comment: Speci men Type: BLOOD SPECIMENOrdering Facility: [facility] Address: [address] [address] Performed By: #### 1 91239, 62631-8 ####[facility] LABORATORYCLIA [id number] [place] [address] [place] CONSULT PROGon 07-07-2022 CONSULT PROG Normal [facility] Renal function 2000 panelon 07-07-2022 Albumin [Mass/Vol] 4.3 g/dL Normal 3.9-4.9 [facility] Comment on above: Order Comment: Speci men Type: BLOOD SPECIMENOrdering Facility: [facility] Address: [address] [place] [address] Performed By: #### 2 4362-6 ####[facility] LABORATORYCLIA [id number] [address] STATES [place] Anion gap [Moles/Vol] 11 mmol/L Normal 9-18 [facility] Comment on above: Order Comment: Speci men Type: BLOOD SPECIMENOrdering Facility: [facility] Address: [address] [place] [address] Performed By: #### 2 4362-6 ####[facility] LABORATORYCLIA [id number] [place] [address] [place] Calcium [Mass/Vol] 8.9 mg/dL Normal 8.5-10.2 [facility] Comment on above: Order Comment: Speci men Type: BLOOD SPECIMENOrdering Facility: [facility] Address: [address] [place] [address] Performed By: #### 2 4362-6 ####[facility] LABORATORYCLIA [id number] [place] [address] [place] Chloride [Moles/Vol] 94 mmol/L Low 97-105 [facility] Comment on above: Order Comment: Speci men Type: BLOOD SPECIMENOrdering Facility: [facility] Address: [address] [place] [address] Performed By: #### 2 4362-6 ####[facility] LABORATORYCLIA [id number] [place] [address] [place] CO2 [Moles/Vol] 33 mmol/L High 22-30 [facility] Comment on above: Order Comment: Elfego gilbert Type: BLOOD SPECIMENOrdering Facility: [facility] Address: [address] [address] Performed By: #### 2 4362-6 ####[facility]ITALCLIA [id number] [address] STATES OF [facility] Creatinine [Mass/Vol] 1.10 mg/dL Normal 0.73-1.22 [facility] Comment on above: Order Comment: Elfego gilbert Type: BLOOD SPECIMENOrdering Facility: [facility] Address: [address] [place] [address] Performed By: #### 2 4362-6 ####[facility] [id number] [address] ESTIMATED GLOMERULAR FILTRATION RATE 65 mL/min/1.73m??? Normal >=60 [facility] Comment on above: Order Comment: Elfego gilbert Type: BLOOD SPECIMENOrdering Facility: [facility] Address: [address] [place] [address] Result Comment: Concepción mated Glomerular Filtration Rate [...] actual GFR. Performed By: #### 2 4362-6 ####[facility] LABORATORYCLIA [id number] [address] [place] Glucose [Mass/Vol] 110 mg/dL High 74-99 [facility] Comment on above: Order Comment: Elfego gilbert Type: BLOOD SPECIMENOrdering Facility: [facility] Address: [address] [place] [address] Result Comment: The [place] Diabetes Association (ADA) provides guidance for cutoff [...] Standards of Medical Care in Diabetes 2016, [place] Diabetes Association. Diabetes Care. 2016.39(Suppl 1). Performed By: #### 2 4362-6 ####[facility] LABORATORYCLIA [id number] [place] [address] [place] Phosphate [Mass/Vol] 4.0 mg/dL Normal 2.7-4.8 [facility] Comment on above: Order Comment: Elfego gilbert Type: BLOOD SPECIMENOrdering Facility: [facility] Address: [address] [place] [address] Performed By: #### 2 4362-6 ####[facility] LABORATORYCLIA [id number] [place] [address] [place] Potassium [Moles/Vol] 4.0 mmol/L Normal 3.7-5.1 [facility] Comment on above: Order Comment: Elfego gilbert Type: BLOOD SPECIMENOrdering Facility: [facility] Address: [address] [place] [address] Performed By: #### 2 4362-6 ####[facility] LABORATORYCLIA [id number] [place] [address] [place] Sodium [Moles/Vol] 138 mmol/L Normal 136-144 [facility] Comment on above: Order Comment: Julii men Type: BLOOD SPECIMENOrdering Facility: [facility] Address: [address] [place] [address] Performed By: #### 2 4362-6 ####[facility] LABORATORYCLIA [id number] [place] [address] [place] Urea nitrogen [Mass/Vol] 28 mg/dL High 9-24 [facility] Comment on above: Order Comment: Julii men Type: BLOOD SPECIMENOrdering Facility: [facility] Address: [address] [address] Performed By: #### 2 4362-6 ####[facility] LABORATORYCLIA [id number] [place] [address] [place] US DVT LOWER BILon US DVT LOWER RALF Normal [facility] CBC W Auto Differential pane l (Bld)on 07-06-2022 Basophils (Bld) [#/Vol] 0.07 10*3/uL Normal <0.11 [facility] Comment on above: Order Comment: Speci men Type: BLOOD SPECIMENOrdering Facility: [facility] Address: [address] [place] [address] Performed By: #### 5 7021-8 ####[facility] LABORATORYCLIA [id number] [address] [place] Basophils/100 WBC (Bld) 0.9 % Normal [facility] Comment on above: Order Comment: Speci men Type: BLOOD SPECIMENOrdering Facility: [facility] Address: [address] [place] [address] Performed By: #### 5 7021-8 ####[facility] LABORATORYCLIA [id number] [address] [place] Differential cell count method Nom (Bld) Auto Normal [facility] Comment on above: Order Comment: Speci men Type: BLOOD SPECIMENOrdering Facility: [facility] Address: [address] [address] Performed By: #### 5 7021-8 ####[facility] LABORATORYCLIA [id number] [address] [place] Eosinophils (Bld) [#/Vol] 0.15 10*3/uL Normal <0.46 [facility] Comment on above: Order Comment: Speci men Type: BLOOD SPECIMENOrdering Facility: [facility] Address: [address] [address] Performed By: #### 5 7021-8 ####[facility] LABORATORYCLIA [id number] [address] Eosinophils/100 WBC (Bld) 2.0 % Normal [facility] Comment on above: Order Comment: Speci men Type: BLOOD SPECIMENOrdering Facility: [facility] Address: [address] [place] [address] Performed By: #### 5 7021-8 ####[facility] LABORATORYCLIA [id number] [address] Erythrocyte distribution width (RBC) [Ratio] 20.4 % High 11.5-15.0 [facility] Comment on above: Order Comment: Speci men Type: BLOOD SPECIMENOrdering Facility: [facility] Address: [address] [place] [address] Performed By: #### 5 7021-8 ####[facility] LABORATORYCLIA [id number] [address] Hematocrit (Bld) [Volume fraction] 24.8 % Low 39.0-51.0 [facility] Comment on above: Order Comment: Speci men Type: BLOOD SPECIMENOrdering Facility: [facility] Address: [address] [place] [address] Performed By: #### 5 7021-8 ####[facility] LABORATORYCLIA [id number] [address] [place] Hemoglobin (Bld) [Mass/Vol] 8.3 g/dL Low 13.0-17.0 [facility] Comment on above: Order Comment: Speci men Type: BLOOD SPECIMENOrdering Facility: [facility] Address: [address] [place] [address] Performed By: #### 5 7021-8 ####[facility] LABORATORYCLIA [id number] [address] IMMATURE GRAN % 0.5 % Normal [facility] Comment on above: Order Comment: Speci men Type: BLOOD SPECIMENOrdering Facility: [facility] Address: [address] [place] [address] Performed By: #### 5 7021-8 ####[facility] LABORATORYCLIA [id number] [address] IMMATURE GRAN ABS 0.04 k/uL Normal <0.10 [facility] Comment on above: Order Comment: Speci men Type: BLOOD SPECIMENOrdering Facility: [facility] Address: [address] [place] [address] Performed By: #### 5 7021-8 ####[facility] LABORATORYCLIA [id number] [address] Lymphocytes (Bld) [#/Vol] 1.35 10*3/uL Normal 1.00-4.00 [facility] Comment on above: Order Comment: Speci men Type: BLOOD SPECIMENOrdering Facility: [facility] Address: [address] [place] [address] Performed By: #### 5 7021-8 ####[facility] LABORATORYCLIA [id number] [address] Lymphocytes/100 WBC (Bld) 18.1 % Normal [facility] Comment on above: Order Comment: Speci men Type: BLOOD SPECIMENOrdering Facility: [facility] Address: [address] [place] [address] Performed By: #### 5 7021-8 ####[facility] LABORATORYCLIA [id number] [address] MCH (RBC) [Entitic mass] 37.2 pg High 26.0-34.0 [facility] Comment on above: Order Comment: Speci men Type: BLOOD SPECIMENOrdering Facility: [facility] Address: [address] [place] [address] Performed By: #### 5 7021-8 ####[facility] LABORATORYCLIA [id number] [address] MCHC (RBC) [Mass/Vol] 33.5 g/dL Normal 30.5-36.0 [facility] Comment on above: Order Comment: Speci men Type: BLOOD SPECIMENOrdering Facility: [facility] Address: [address] [place] [address] Performed By: #### 5 7021-8 ####[facility] LABORATORYCLIA [id number] [address] [place] MCV (RBC) [Entitic vol] 111.2 fL High 80.0-100.0 [facility] Comment on above: Order Comment: Speci men Type: BLOOD SPECIMENOrdering Facility: [facility] Address: [address] [place] [address] Performed By: #### 5 7021-8 ####[facility] LABORATORYCLIA [id number] [address] [place] Monocytes (Bld) [#/Vol] 1.13 10*3/uL High <0.87 [facility] Comment on above: Order Comment: Speci men Type: BLOOD SPECIMENOrdering Facility: [facility] Address: [address] [place] [address] Performed By: #### 5 7021-8 ####[facility] LABORATORYCLIA [id number] [address] STATES [facility] Monocytes/100 WBC (Bld) 15.1 % Normal [facility] Comment on above: Order Comment: Speci men Type: BLOOD SPECIMENOrdering Facility: [facility] Address: [address] [place] [address] Performed By: #### 5 7021-8 ####[facility] LABORATORYCLIA [id number] [address] [place] Neutrophils (Bld) [#/Vol] 4.73 10*3/uL Normal 1.45-7.50 [facility] Comment on above: Order Comment: Speci men Type: BLOOD SPECIMENOrdering Facility: [facility] Address: [address] [place] [address] Performed By: #### 5 7021-8 ####[facility] LABORATORYCLIA [id number] [place] [address] [place] Neutrophils/100 WBC (Bld) 63.4 % Normal [facility] Comment on above: Order Comment: Speci men Type: BLOOD SPECIMENOrdering Facility: [facility] Address: [address] [place] [address] Performed By: #### 5 7021-8 ####[facility] LABORATORYCLIA [id number] [place] [address] [place] Nucleated RBC (Bld) [#/Vol] 0.03 10*3/uL High <0.01 [facility] Comment on above: Order Comment: Speci men Type: BLOOD SPECIMENOrdering Facility: [facility] Address: [address] [place] [address] Performed By: #### 5 7021-8 ####[facility] LABORATORYCLIA [id number] [address] [place] Nucleated RBC/100 WBC (Bld) [Ratio] 0.4 /100 WBC Normal [facility] Comment on above: Order Comment: Speci men Type: BLOOD SPECIMENOrdering Facility: [facility] Address: [address] [place] [address] Performed By: #### 5 7021-8 ####[facility] LABORATORYCLIA [id number] [place] [address] [place] Platelet mean volume (Bld) [Entitic vol] 11.3 fL Normal 9.0-12.7 [facility] Comment on above: Order Comment: Speci men Type: BLOOD SPECIMENOrdering Facility: [facility] Address: [address] [place], [place] [address] Performed By: #### 5 7021-8 ####[facility] LABORATORYCLIA [id number] [place] [address] [place] Platelets (Bld) [#/Vol] 218 10*3/uL Normal 150-400 [facility] Comment on above: Order Comment: Speci men Type: BLOOD SPECIMENOrdering Facility: [facility] Address: [address] [place], [place] [address] Performed By: #### 5 7021-8 ####[facility] LABORATORYCLIA [id number] [address] OF [facility] RBC (Bld) [#/Vol] 2.23 10*6/uL Low 4.20-6.00 [facility] Comment on above: Order Comment: Speci men Type: BLOOD SPECIMENOrdering Facility: [facility] Address: [address] [place] [address] Performed By: #### 5 7021-8 ####[facility] LABORATORYCLIA [id number] [address] WBC (Bld) [#/Vol] 7.47 10*3/uL Normal 3.70-11.00 [facility] Comment on above: Order Comment: Speci men Type: BLOOD SPECIMENOrdering Facility: [facility] Address: [address] [place] [address] Performed By: #### 5 7021-8 ####[facility] LABORATORYCLIA [id number] [address] CONSULT PROGon 07-06-2022 CONSULT PROG Normal [facility] Folate SerPl-mCncon 07-06-20 22 Folate [Mass/Vol] ng/mL Normal >4.7 [facility] Comment on above: Order Comment: Speci men Type: BLOOD SPECIMENOrdering Facility: [facility] Address: [address] [place] [address] Result Comment: A re sult of > 20 ng/mL is not necessarily indicative of a pathologic or treatable condition: it reflects a limitation of the test methodology.Assay reference range: 4.8 to 24.2 ng/mL. Suitable for detection of folate deficiency.Reference:Folate III (Folate III) [package insert V 1.0 Serbian]. [facility], [place], [place]: September 2015. Performed By: #### 2 4362-6, 12156-1, 2284-8 ####[facility] LABORATORYCLIA [id number] [address] OF [facility] Lipid 1996 panelon 2 Cholesterol [Mass/Vol] 75 mg/dL Normal <200 [facility] Comment on above: Order Comment: Elfego vladimir Type: BLOOD SPECIMENOrdering Facility: [facility] Address: [address] [place] [address] Result Comment: <200 mg/dL, Desirable 200-239 mg/dL, Borderline high>239 mg/dL, High Performed By: #### 2 4362-6, 94733-7, 2284-06 ####[facility]ORATORYCLIA [id number] [place], [place] [id number] [place] [address] Cholesterol in HDL [Mass/Vol] 44 mg/dL Normal >39 [facility] Comment on above: Order Comment: Elfego vladimir Type: BLOOD SPECIMENOrdering Facility: [facility] Address: [address] [place] [address] Result Comment: 40-5 9 mg/dL, Acceptable>59 mg/dL, High: Negative risk factor for coronary heart disease<40 mg/dL, Low: Positive risk factor for coronary heart disease Performed By: #### 2 4362-6, 61614-4, 2284-06 ####[facility] LABORATORYCLIA [id number] [address] Cholesterol in LDL [Mass/Vol] 23 mg/dL Normal <100 [facility] Comment on above: Order Comment: Elfego vladimir Type: BLOOD SPECIMENOrdering Facility: [facility] Address: [address] [place] [address] Result Comment: <100 mg/dL, Optimal 100-129 mg/dL, Near optimal/above optimal 130-159 mg/dL, Borderline high 160-189 mg/dL, High>189 mg/dL, Very highSecondary prevention optimal LDL Cholesterol levels are recommended to be < 70 mg/dL Performed By: #### 2 4362-6, 11372-6, 2284-06 ####[facility]ORATORYCLIA [id number] [place], [place] [address] [place] [address] [place] Cholesterol in LDL/Cholesterol in HDL [Mass ratio] 0.52 {ratio} Normal <2.54 [facility] Comment on above: Order Comment: Speci men Type: BLOOD SPECIMENOrdering Facility: [facility] Address: [address] [place] [address] Result Comment: Katie barrientos:1. National Cholesterol Education Program ATP III Guideline At-A-Glance Quick Desk Reference: National Heart, Lung, and Blood [place]. National Institutes of Health. 2001: NIH Publication No. 01-3305.2. An International Atherosclerosis Society position paper: global recommendations for the management of dyslipidemia: executive summary, Atherosclerosis. 2014: 232(2):410-413. Performed By: #### 2 4362-6, 83430-1, 2284-06 ####[facility] LABORATORYCLIA [id number] [address] [place] Cholesterol in VLDL [Mass/Vol] 8 mg/dL Normal <30 [facility] Comment on above: Order Comment: Julii vladimir Type: BLOOD SPECIMENOrdering Facility: [facility] Address: [address] [place] [address] Performed By: #### 2 4362-6, 56533-7, 2284-06 ####[facility] LABORATORYCLIA [id number] [address] [place] Cholesterol non HDL [Mass/Vol] 31 mg/dL Normal <130 [facility] Comment on above: Order Comment: Speci vladimir Type: BLOOD SPECIMENOrdering Facility: [facility] Address: [address] [place] [address] Result Comment: <130 mg/dL, Optimal 130-159 mg/dL, Near optimal/above optimal 160-189 mg/dL, Borderline high 190-219 mg/dL, High>219 mg/dL, Very highSecondary prevention optimal non HDL Cholesterol levels are recommended to be <100 mg/dL Performed By: #### 2 4362-6, 18782-9, 2284-06 ####[facility] LABORATORYCLIA [id number] [place], [place] [address] [place] [address] [place] Cholesterol.total/Chol esterol in HDL [Mass ratio] 1.70 {ratio} Normal <5.10 [facility] Comment on above: Order Comment: Speci men Type: BLOOD SPECIMENOrdering Facility: [facility] Address: [address] [place] [address] Performed By: #### 2 4362-6, 41977-4, 2284-06 ####[facility] LABORATORYCLIA [id number] [address] OF [facility] FASTING TIME Not indicated Normal [facility] Comment on above: Order Comment: Speci men Type: BLOOD SPECIMENOrdering Facility: [facility] Address: [address] [place] [address] Performed By: #### 2 4362-6, 81723-9, 2284-06 ####[facility] LABORATORYCLIA [id number] [address] STATES OF [facility] Triglyceride [Mass/Vol] 38 mg/dL Normal <150 [facility] Comment on above: Order Comment: Speci men Type: BLOOD SPECIMENOrdering Facility: [facility] Address: [address] [place] [address] Result Comment: <150 mg/dL, Normal 150-199 mg/dL, Borderline high 200-499 mg/dL, High>499 mg/dL, Very high Performed By: #### 2 4362-6, 52169-0, 2284-06 ####[facility] LABORATORYCLIA [id number] [address] OF [facility] Renal function 2000 panelon 07-06-2022 Albumin [Mass/Vol] 3.7 g/dL Low 3.9-4.9 [facility] Comment on above: Order Comment: Speci men Type: BLOOD SPECIMENOrdering Facility: [facility] Address: [address] [place] [address] Performed By: #### 2 4362-6, 98306-1, 2284-06 ####[facility] LABORATORYCLIA [id number] [address] [place] Anion gap [Moles/Vol] 8 mmol/L Low 9-18 [facility] Comment on above: Order Comment: Speci men Type: BLOOD SPECIMENOrdering Facility: [facility] Address: [address] [place] [address] Performed By: #### 2 4362-6, 37833-4, 2284-06 ####[facility] LABORATORYCLIA [id number] [place] [address] [place] Calcium [Mass/Vol] 8.9 mg/dL Normal 8.5-10.2 [facility] Comment on above: Order Comment: Speci men Type: BLOOD SPECIMENOrdering Facility: [facility] Address: [address] [place] [address] Performed By: #### 2 4362-6, 81499-5, 2284-06 ####[facility] LABORATORYCLIA [id number] [place] [address] [place] Chloride [Moles/Vol] 99 mmol/L Normal 97-105 [facility] Comment on above: Order Comment: Speci men Type: BLOOD SPECIMENOrdering Facility: [facility] Address: [address] [place] [address] Performed By: #### 2 4362-6, 33929-6, 2284-06 ####[facility] LABORATORYCLIA [id number] [place] [address] [place] CO2 [Moles/Vol] 33 mmol/L High 22-30 [facility] Comment on above: Order Comment: Speci men Type: BLOOD SPECIMENOrdering Facility: [facility] Address: [address] [place], [place] [address] Performed By: #### 2 4362-6, 16761-2, 2284-06 ####[facility] LABORATORYCLIA [id number] [place] [address] [place] Creatinine [Mass/Vol] 1.11 mg/dL Normal 0.73-1.22 [facility] Comment on above: Order Comment: Speci men Type: BLOOD SPECIMENOrdering Facility: [facility] Address: [address] [place] [address] Performed By: #### 2 4362-6, 68951-3, 2284-06 ####[facility] [id number] [place] [address] [place] ESTIMATED GLOMERULAR FILTRATION RATE 65 mL/min/1.73m??? Normal >=60 [facility] Comment on above: Order Comment: Elfego gilbert Type: BLOOD SPECIMENOrdering Facility: [facility] Address: [address] [place] [address] Result Comment: Concepción mated Glomerular Filtration Rate [...] actual GFR. Performed By: #### 2 4362-6, 08201-7, 2284-06 ####[facility] [id number] [place] [id number] [place] Glucose [Mass/Vol] 98 mg/dL Normal 74-99 [facility] Comment on above: Order Comment: Elfego vladimir Type: BLOOD SPECIMENOrdering Facility: [facility] Address: [address] [place] [address] Result Comment: The [place] Diabetes Association (ADA) provides guidance for cutoff [...] Standards of Medical Care in Diabetes 2016, [place] [employer]. Diabetes Care. 2016.39(Suppl 1). Performed By: #### 2 4362-6, 12951-3, 2284-06 ####[facility] LABORATORYCLIA [id number] [place], [place] [facility] [place] Phosphate [Mass/Vol] 4.0 mg/dL Normal 2.7-4.8 [facility] Comment on above: Order Comment: Speci men Type: BLOOD SPECIMENOrdering Facility: [facility] Address: [address] [place] [address] Performed By: #### 2 4362-6, 09240-9, 8 ####[facility] LABORATORYCLIA [id number] [address] STATES OF [facility] Potassium [Moles/Vol] 4.0 mmol/L Normal 3.7-5.1 [facility] Comment on above: Order Comment: Speci men Type: BLOOD SPECIMENOrdering Facility: [facility] Address: [address] [place] [address] Performed By: #### 2 4362-6, 37075-6, 2284-06 ####[facility] LABORATORYCLIA [id number] [address] Sodium [Moles/Vol] 140 mmol/L Normal 136-144 [facility] Comment on above: Order Comment: Speci men Type: BLOOD SPECIMENOrdering Facility: [facility] Address: [address] [place] [address] Performed By: #### 2 4362-6, 07167-4, 2284-06 ####[facility] LABORATORYCLIA [id number] [address] STATES OF [facility] Urea nitrogen [Mass/Vol] 28 mg/dL High 9-24 [facility] Comment on above: Order Comment: Speci men Type: BLOOD SPECIMENOrdering Facility: [facility] Address: [address] [place] [address] Performed By: #### 2 4362-6, 15123-6, 8 ####[facility] LABORATORYCLIA [id number] [address] [place] CBC W Auto Differential pane l (Bld)on 07-05-2022 Basophils (Bld) [#/Vol] 0.04 10*3/uL Normal <0.11 [facility] Comment on above: Order Comment: Speci men Type: BLOOD SPECIMENOrdering Facility: [facility] Address: [address] [place] [address] Performed By: #### 1 6-0, 22821-8 ####[facility]ORATORYCLIA [id number] [address] [place] Basophils/100 WBC (Bld) 0.5 % Normal [facility] Comment on above: Order Comment: Speci men Type: BLOOD SPECIMENOrdering Facility: [facility] Address: [address] [place] [address] Performed By: #### 1 0, 49728-1 ####[facility]ORATORYCLIA [id number] [address] [place] Differential cell count method Nom (Bld) Auto Normal [facility] Comment on above: Order Comment: Speci men Type: BLOOD SPECIMENOrdering Facility: [facility] Address: [address] [place] [address] Performed By: #### 1 0, 41264-4 ####[facility]ORATORYCLIA [id number] [place] [address] [place] Eosinophils (Bld) [#/Vol] 0.12 10*3/uL Normal <0.46 [facility] Comment on above: Order Comment: Speci men Type: BLOOD SPECIMENOrdering Facility: [facility] Address: [address] [place] [address] Performed By: #### 1 6-0, ####[facility]ORATORYCLIA [id number] [address] [place] Eosinophils/100 WBC (Bld) 1.5 % Normal [facility] Comment on above: Order Comment: Speci men Type: BLOOD SPECIMENOrdering Facility: [facility] Address: [address] [place] [address] Performed By: #### 1 4195-0, 41894-1 ####[facility]ORATORYCLIA [id number] [address] OF [facility] Erythrocyte distribution width (RBC) [Ratio] 20.3 % High 11.5-15.0 [facility] Comment on above: Order Comment: Speci men Type: BLOOD SPECIMENOrdering Facility: [facility] Address: [address] [place] [address] Performed By: #### 1 4196-0, 55674-8 ####[facility] LABORATORYCLIA [id number] [address] OF [facility] Hematocrit (Bld) [Volume fraction] 25.5 % Low 39.0-51.0 [facility] Comment on above: Order Comment: Speci men Type: BLOOD SPECIMENOrdering Facility: [facility] Address: [address] [place] [address] Performed By: #### 1 4196-0, 69673-8 ####[facility]ITALCLIA [id number] [address] Hemoglobin (Bld) [Mass/Vol] 8.4 g/dL Low 13.0-17.0 [facility] Comment on above: Order Comment: Speci men Type: BLOOD SPECIMENOrdering Facility: [facility] Address: [address] [place] [address] Performed By: #### 1 4196-0, 76183-0 ####[facility] LABORATORYCLIA [id number] [address] IMMATURE GRAN % 0.4 % Normal [facility] Comment on above: Order Comment: Speci men Type: BLOOD SPECIMENOrdering Facility: [facility] Address: [address] [place] [address] Performed By: #### 1 4196-0, 49403-1 ####[facility] LABORATORYCLIA [id number] [address] IMMATURE GRAN ABS 0.03 k/uL Normal <0.10 [facility] Comment on above: Order Comment: Speci men Type: BLOOD SPECIMENOrdering Facility: [facility] Address: [address] [place] [address] Performed By: #### 1 4196-0, 00648-8 ####[facility] LABORATORYCLIA [id number] [address] Lymphocytes (Bld) [#/Vol] 1.10 10*3/uL Normal 1.00-4.00 [facility] Comment on above: Order Comment: Speci men Type: BLOOD SPECIMENOrdering Facility: [facility] Address: [address] [place] [address] Performed By: #### 1 4196-0, 73904-9 ####[facility] LABORATORYCLIA [id number] [address] Lymphocytes/100 WBC (Bld) 13.6 % Normal [facility] Comment on above: Order Comment: Speci men Type: BLOOD SPECIMENOrdering Facility: [facility] Address: [address] [place] [address] Performed By: #### 1 4196-0, 71349-2 ####[facility] LABORATORYCLIA [id number] [address] [place] MCH (RBC) [Entitic mass] 37.2 pg High 26.0-34.0 [facility] Comment on above: Order Comment: Speci men Type: BLOOD SPECIMENOrdering Facility: [facility] Address: [address] [place] [address] Performed By: #### 1 4196-0, 81678-6 ####[facility] LABORATORYCLIA [id number] [address] [place] MCHC (RBC) [Mass/Vol] 32.9 g/dL Normal 30.5-36.0 [facility] Comment on above: Order Comment: Speci men Type: BLOOD SPECIMENOrdering Facility: [facility] Address: [address] [place] [address] Performed By: #### 1 4196-0, 13887-6 ####[facility]ORATORYCLIA [id number] [place] [address] [place] MCV (RBC) [Entitic vol] 112.8 fL High 80.0-100.0 [facility] Comment on above: Order Comment: Speci men Type: BLOOD SPECIMENOrdering Facility: [facility] Address: [address] [place] [address] Performed By: #### 1 4196-0, 52623-0 ####[facility] LABORATORYCLIA [id number] [place] [address] [place] Monocytes (Bld) [#/Vol] 1.12 10*3/uL High <0.87 [facility] Comment on above: Order Comment: Speci men Type: BLOOD SPECIMENOrdering Facility: [facility] Address: [address] [place] [address] Performed By: #### 1 4196-0, 79595-1 ####[facility]ORATORYCLIA [id number] [address] [place] Monocytes/100 WBC (Bld) 13.9 % Normal [facility] Comment on above: Order Comment: Speci men Type: BLOOD SPECIMENOrdering Facility: [facility] Address: [address] [place] [address] Performed By: #### 1 4196-0, 14446-8 ####[facility] LABORATORYCLIA [id number] [address] [place] Neutrophils (Bld) [#/Vol] 5.66 10*3/uL Normal 1.45-7.50 [facility] Comment on above: Order Comment: Speci men Type: BLOOD SPECIMENOrdering Facility: [facility] Address: [address] [place] [address] Performed By: #### 1 4196-0, 44117-4 ####[facility] LABORATORYCLIA [id number] [address] [place] Neutrophils/100 WBC (Bld) 70.1 % Normal [facility] Comment on above: Order Comment: Speci men Type: BLOOD SPECIMENOrdering Facility: [facility] Address: [address] [place] [address] Performed By: #### 1 4196-0, 78435-1 ####[facility] LABORATORYCLIA [id number] [address] [place] Nucleated RBC (Bld) [#/Vol] 0.03 10*3/uL High <0.01 [facility] Comment on above: Order Comment: Speci men Type: BLOOD SPECIMENOrdering Facility: [facility] Address: [address] [place] [address] Performed By: #### 1 4196-0, 22485-0 ####[facility] LABORATORYCLIA [id number] [address] [place] Nucleated RBC/100 WBC (Bld) [Ratio] 0.4 /100 WBC Normal [facility] Comment on above: Order Comment: Speci men Type: BLOOD SPECIMENOrdering Facility: [facility] Address: [address] [place] [address] Performed By: #### 1 4196-0, 47576-6 ####[facility] LABORATORYCLIA [id number] [address] [place] Platelet mean volume (Bld) [Entitic vol] 11.5 fL Normal 9.0-12.7 [facility] Comment on above: Order Comment: Speci men Type: BLOOD SPECIMENOrdering Facility: [facility] Address: [address] Performed By: #### 1 4196-0, 34953-5 ####[facility]ORATORYCLIA [id number] [place] [address] [place] Platelets (Bld) [#/Vol] 236 10*3/uL Normal 150-400 [facility] Comment on above: Order Comment: Speci men Type: BLOOD SPECIMENOrdering Facility: [facility] Address: [address] Performed By: #### 1 4196-0, 73347-2 ####[facility] LABORATORYCLIA [id number] [place] [address] [place] RBC (Bld) [#/Vol] 2.26 10*6/uL Low 4.20-6.00 [facility] Comment on above: Order Comment: Speci men Type: BLOOD SPECIMENOrdering Facility: [facility] Address: [address] [place] [address] Performed By: #### 1 4196-0, 97078-1 ####[facility] LABORATORYCLIA [id number] [address] STATES OF [facility] WBC (Bld) [#/Vol] 8.07 10*3/uL Normal 3.70-11.00 [facility] Comment on above: Order Comment: Speci men Type: BLOOD SPECIMENOrdering Facility: [facility] Address: [address] [place] [address] Performed By: #### 1 4196-0, 59442-0 ####[facility] LABORATORYCLIA [id number] [address] [place] CONSULTon 07-05-2022 CONSULT Normal [facility] Comprehensive metabolic 2000 panelon 07-05-2022 Albumin [Mass/Vol] 3.7 g/dL Low 3.9-4.9 [facility] Comment on above: Order Comment: Speci men Type: BLOOD SPECIMENOrdering Facility: [facility] Address: [address] [place] [address] Performed By: #### 2 4323-8, 72942-2 ####[facility]ORATORYCLIA [id number] [address] [place] ALP [Catalytic activity/Vol] 83 U/L Normal 38-113 [facility] Comment on above: Order Comment: Speci men Type: BLOOD SPECIMENOrdering Facility: [facility] Address: [address] [place] [address] Performed By: #### 2 4323-8, 89792-2 ####[facility]ORATORYCLIA [id number] [address] [place] ALT With P-5'-P [Catalytic activity/Vol] 21 U/L Normal 10-54 [facility] Comment on above: Order Comment: Speci men Type: BLOOD SPECIMENOrdering Facility: [facility] Address: [address] [place] [address] Performed By: #### 2 4323-8, ####[facility] LABORATORYCLIA [id number] [address] STATES OF [facility] Anion gap [Moles/Vol] 8 mmol/L Low 9-18 [facility] Comment on above: Order Comment: Speci men Type: BLOOD SPECIMENOrdering Facility: [facility] Address: [address] [place] [address] Performed By: #### 2 4328, ####[facility]ORATORYCLIA [id number] [address] STATES OF [facility] AST With P-5'-P [Catalytic activity/Vol] 24 U/L Normal 14-40 [facility] Comment on above: Order Comment: Speci men Type: BLOOD SPECIMENOrdering Facility: [facility] Address: [address] [place] [address] Performed By: #### 2 4323-8, ####[facility] LABORATORYCLIA [id number] [place] [address] [place] Bilirubin [Mass/Vol] 1.4 mg/dL High 0.2-1.3 [facility] Comment on above: Order Comment: Speci men Type: BLOOD SPECIMENOrdering Facility: [facility] Address: [address] [place] [address] Performed By: #### 2 432-8, ####[facility] LABORATORYCLIA [id number] [address] [place] Calcium [Mass/Vol] 8.5 mg/dL Normal 8.5-10.2 [facility] Comment on above: Order Comment: Speci men Type: BLOOD SPECIMENOrdering Facility: [facility] Address: [address] [place] [address] Performed By: #### 2 4323-8, ####[facility] LABORATORYCLIA [id number] [place] [address] [place] Chloride [Moles/Vol] 101 mmol/L Normal 97-105 [facility] Comment on above: Order Comment: Speci men Type: BLOOD SPECIMENOrdering Facility: [facility] Address: [address] [place] [address] Performed By: #### 2 4323-8, ####[facility] LABORATORYCLIA [id number] [place] [address] [place] CO2 [Moles/Vol] 31 mmol/L High 22-30 [facility] Comment on above: Order Comment: Speci men Type: BLOOD SPECIMENOrdering Facility: [facility] Address: [address] [place] [address] Performed By: #### 2 4323-8, ####[facility]ORATORYCLIA [id number] [place] [address] [place] Creatinine [Mass/Vol] 1.06 mg/dL Normal 0.73-1.22 [facility] Comment on above: Order Comment: Speci men Type: BLOOD SPECIMENOrdering Facility: [facility] Address: [address] [place] [address] Performed By: #### 2 4323-8, ####[facility] LABORATORYCLIA [id number] [address] [place] ESTIMATED GLOMERULAR FILTRATION RATE 68 mL/min/1.73m??? Normal >=60 [facility] Comment on above: Order Comment: Speci men Type: BLOOD SPECIMENOrdering Facility: [facility] Address: [address] [place] [address] Result Comment: Concepción mated Glomerular Filtration Rate [...] reflect actual GFR. Performed By: #### 2 4328, ####[facility] LABORATORYCLIA [id number] [place] [address] [place] Glucose [Mass/Vol] 97 mg/dL Normal 74-99 [facility] Comment on above: Order Comment: Specjason gilbert Type: BLOOD SPECIMENOrdering Facility: [facility] Address: [address] [place] [id number] Result Comment: The [place] Diabetes [employer] (ADA) provides guidance for cutoff [...] Standards of Medical Care in Diabetes 2016, [place] [employer]. Diabetes Care. 2016.39(Suppl 1). Performed By: #### 2 43201-14, ####[facility] LABORATORYCLIA [id number] [place] [id number] [place] Potassium [Moles/Vol] 3.9 mmol/L Normal 3.7-5.1 [facility] Comment on above: Order Comment: Elfego gilbert Type: BLOOD SPECIMENOrdering Facility: [facility] Address: [address] [place] [address] Performed By: #### 2 43201-14, ####[facility] LABORATORYCLIA [id number] [place] [address] [place] Protein [Mass/Vol] 5.6 g/dL Low 6.3-8.0 [facility] Comment on above: Order Comment: Speci men Type: BLOOD SPECIMENOrdering Facility: [facility] Address: [address] [place] [address] Performed By: #### 2 4323-8, ####[facility] LABORATORYCLIA [id number] [address] STATES [facility] Sodium [Moles/Vol] 140 mmol/L Normal 136-144 [facility] Comment on above: Order Comment: Speci men Type: BLOOD SPECIMENOrdering Facility: [facility] Address: [address] [place] [address] Performed By: #### 2 8, ####[facility]ORATORYCLIA [id number] [address] Urea nitrogen [Mass/Vol] 25 mg/dL High 9-24 [facility] Comment on above: Order Comment: Speci men Type: BLOOD SPECIMENOrdering Facility: [facility] Address: [address] [place] [address] Performed By: #### 2 8, ####[facility] LABORATORYCLIA [id number] [address] HISTORY PHYSICALon HISTORY PHYSICAL Normal [facility] Magnesium SerPl-mCncon 07-05 Magnesium [Mass/Vol] 1.9 mg/dL Normal 1.7-2.3 [facility] Comment on above: Order Comment: Speci men Type: BLOOD SPECIMENOrdering Facility: [facility] Address: [address] [place] [address] Performed By: #### 2 4323-8, ####[facility] LABORATORYCLIA [id number] [address] Retics #on 07-05-2022 Reticulocytes (Bld) [#/Vol] 0.13372 10*3/uL Normal 0.018-0.10 0 [facility] Comment on above: Order Comment: Speci men Type: BLOOD SPECIMENOrdering Facility: [facility] Address: [address] [place] [address] Performed By: #### 1 4196-0, 29882-9 ####[facility] LABORATORYCLIA [id number] [address] [place] Reticulocytes (Bld) [#/Vol]o n 07-05-2022 Reticulocytes/100 RBC (Bld) 1.8 % Normal 0.4-2.0 [facility] Comment on above: Order Comment: Speci men Type: BLOOD SPECIMENOrdering Facility: [facility] Address: [address] [place] [address] Performed By: #### 1 4196-0, 27068-5 ####[facility] LABORATORYCLIA [id number] [place] [address] [place] US DOPPLER LTDon 07-05-2022 US DOPPLER LTD Normal [facility] US SCROTUM AND CONTENTSon US SCROTUM AND CONTENTS Normal [facility] Urinalysis complete panel (U )on 07-05-2022 Bilirubin Ql (U) Negative Normal Negative [facility] Comment on above: Order Comment: Speci men Type: URINE SPECIMENOrdering Facility: [facility] Address: [address] [place] [address] Performed By: #### 2 4356-8 ####[facility] LABORATORYCLIA [id number] [place] [address] [place] Clarity (Unsp spec) Clear Normal Clear [facility] Comment on above: Order Comment: Speci men Type: URINE SPECIMENOrdering Facility: [facility] Address: [address] [place] [address] Performed By: #### 2 4356-8 ####[facility] LABORATORYCLIA [id number] [address] [place] Color (U) Colorless Normal yellow [facility] Comment on above: Order Comment: Speci men Type: URINE SPECIMENOrdering Facility: [facility] Address: [address] [place] [address] Performed By: #### 2 4356-8 ####[facility] LABORATORYCLIA [id number] [address] Glucose Test strip (U) [Mass/Vol] Negative Normal Negative [facility] Comment on above: Order Comment: Speci men Type: URINE SPECIMENOrdering Facility: [facility] Address: [address] [place] [address] Performed By: #### 2 4356-8 ####[facility] LABORATORYCLIA [id number] [address] [place] Hemoglobin Ql (U) Negative Normal Negative [facility] Comment on above: Order Comment: Speci men Type: URINE SPECIMENOrdering Facility: [facility] Address: [address] [place] [address] Performed By: #### 2 4356-8 ####[facility] LABORATORYCLIA [id number] [address] Hyaline casts (Urine sed) [#/Area] 1-3 /LPF Abnormal 0 /LPF [facility] Comment on above: Order Comment: Speci men Type: URINE SPECIMENOrdering Facility: [facility] Address: [address] [place] [address] Performed By: #### 2 4356-8 ####[facility] LABORATORYCLIA [id number] [address] Ketones Ql (U) Negative Normal Negative [facility] Comment on above: Order Comment: Speci men Type: URINE SPECIMENOrdering Facility: [facility] Address: [address] [place] [address] Performed By: #### 2 4356-8 ####[facility] LABORATORYCLIA [id number] [address] Leukocyte esterase Test strip Ql (U) Negative Normal Negative [facility] Comment on above: Order Comment: Speci men Type: URINE SPECIMENOrdering Facility: [facility] Address: [address] [address] Performed By: #### 2 4356-8 ####[facility] LABORATORYCLIA [id number] [address] [place] [facility] Nitrite Ql (U) Negative Normal Negative [facility] Comment on above: Order Comment: Speci men Type: URINE SPECIMENOrdering Facility: [facility] Address: [address] [place] [address] Performed By: #### 2 4356-8 ####[facility] LABORATORYCLIA [id number] [address] [place] pH (U) 5.0 [pH] Normal 5.0-8.0 [facility] Comment on above: Order Comment: Speci men Type: URINE SPECIMENOrdering Facility: [facility] Address: [address] [place] [address] Performed By: #### 2 4356-8 ####[facility]ITALCL[facility] [id number] [address] Protein (U) [Mass/Vol] Negative Normal Negative [facility] Comment on above: Order Comment: Speci men Type: URINE SPECIMENOrdering Facility: [facility] Address: [address] [place] [address] Performed By: #### 2 4356-8 ####[facility] [id number] [place] RBC LM.HPF (Urine sed) [#/Area] 0-3 /HPF Normal 0-3 /HPF [facility] Comment on above: Order Comment: Speci men Type: URINE SPECIMENOrdering Facility: [facility] Address: [address] [place] [address] Performed By: #### 2 4356-8 ####[facility] LABORATORYCLIA [id number] [address] [place] Specific gravity (U) [Rel density] 1.008 Normal 1.005-1.03 0 [facility] Comment on above: Order Comment: Speci men Type: URINE SPECIMENOrdering Facility: [facility] Address: [address] [place] [address] Performed By: #### 2 4356-8 ####[facility] LABORATORYCLIA [id number] [address] Urobilinogen Ql (U) Normal Normal Negative [facility] Comment on above: Order Comment: Speci men Type: URINE SPECIMENOrdering Facility: [facility] Address: [address] [place] [address] Performed By: #### 2 4356-8 ####[facility] LABORATORYCLIA [id number] [address] WBC LM.HPF (Urine sed) [#/Area] 0-5 /HPF Normal 0-5 /HPF [facility] Comment on above: Order Comment: Speci men Type: URINE SPECIMENOrdering Facility: [facility] Address: [address] [place] [address] Performed By: #### 2 4356-8 ####[facility] LABORATORYCLIA [id number] [place] [address] [place] Basic metabolic 2000 panelon 07-04-2022 Anion gap [Moles/Vol] 3 mmol/L Low 8-16 [facility] Comment on above: Order Comment: Speci men Type: BLOOD SPECIMENOrdering Facility: [facility] Address: [address] [place] [address] Performed By: #### 2 4321-2 ####[facility] LABCLIA [id number] [place] [address] [place] Calcium [Mass/Vol] 8.6 mg/dL Normal 8.5-10.1 [facility] Comment on above: Order Comment: Speci men Type: BLOOD SPECIMENOrdering Facility: [facility] Address: [address] [place] [address] Performed By: #### 2 4321-2 ####[facility] LABCLIA [id number] [place] [address] [place] Chloride [Moles/Vol] 104 mmol/L Normal 98-107 [facility] Comment on above: Order Comment: Speci men Type: BLOOD SPECIMENOrdering Facility: [facility] Address: [address] [place] [address] Performed By: #### 2 4321-2 ####[facility] LABCLIA [id number] [place] [address] [place] CO2 [Moles/Vol] 32 mmol/L Normal 21-32 [facility] Comment on above: Order Comment: Speci men Type: BLOOD SPECIMENOrdering Facility: [facility] Address: [address] [place] [address] Performed By: #### 2 4321-2 ####[facility] LABCLIA [id number] [place] [address] [place] Creatinine [Mass/Vol] 1.00 mg/dL Normal 0.67-1.17 [facility] Comment on above: Order Comment: Speci men Type: BLOOD SPECIMENOrdering Facility: [facility] Address: [address] [place] [address] Performed By: #### 2 4321-2 ####[facility] LABCLIA [id number] [place] [address] [facility] ESTIMATED GLOMERULAR FILTRATION RATE 73 mL/min/1.73m??? Normal >=60 [facility] Comment on above: Order Comment: Speci men Type: BLOOD SPECIMENOrdering Facility: [facility] Address: [address] [place] [address] Result Comment: Concepción mated Glomerular Filtration Rate [...] actual GFR. Performed By: #### 2 4321-2 ####[facility] LABCLIA [id number] [place] [address] [place] Glucose [Mass/Vol] 112 mg/dL High 70-99 [facility] Comment on above: Order Comment: Speci men Type: BLOOD SPECIMENOrdering Facility: [facility] Address: [address] [place] [address] Result Comment: The [place] Diabetes Association (ADA) provides guidance for cutoff [...] Standards of Medical Care in Diabetes 2016, [place] Diabetes Association. Diabetes Care. 2016.39(Suppl 1). Performed By: #### 2 4321-2 ####[facility] LABCLIA [id number] [place] [address] [place] Potassium [Moles/Vol] 4.7 mmol/L Normal 3.5-5.1 [facility] Comment on above: Order Comment: Speci men Type: BLOOD SPECIMENOrdering Facility: [facility] Address: [address] [place] [address] Performed By: #### 2 4321-2 ####[facility] LABCLIA [id number] [place] [address] [place] Sodium [Moles/Vol] 139 mmol/L Normal 136-145 [facility] Comment on above: Order Comment: Speci men Type: BLOOD SPECIMENOrdering Facility: [facility] Address: [address] [place] [address] Performed By: #### 2 4321-2 ####[facility] LABCLIA [id number] [place] [address] [place] Urea nitrogen [Mass/Vol] 26 mg/dL High 7-18 [facility] Comment on above: Order Comment: Speci men Type: BLOOD SPECIMENOrdering Facility: [facility] Address: [address] [place] [address] Performed By: #### 2 4321-2 ####[facility] LABCLIA [id number] [place] [address] [place] CBC W Auto Differential pane l (Bld)on 07-04-2022 Basophils (Bld) [#/Vol] 0.12 10*3/uL High <0.11 [facility] Comment on above: Order Comment: Speci men Type: BLOOD SPECIMENOrdering Facility: [facility] Address: [address] [place] [address] Performed By: #### 5 7021-8 ####[facility] LABCLIA [id number] [place] [address] [place] Basophils/100 WBC (Bld) 1.5 % Normal [facility] Comment on above: Order Comment: Speci men Type: BLOOD SPECIMENOrdering Facility: [facility] Address: [address] [place] [address] Performed By: #### 5 7021-8 ####[facility] LABCLIA [id number] [address] STATES [facility] Differential cell count method Nom (Bld) Auto Normal [facility] Comment on above: Order Comment: Speci men Type: BLOOD SPECIMENOrdering Facility: [facility] Address: [address] [place] [address] Performed By: #### 5 7021-8 ####[facility] LABCLIA [id number] [place] [address] [place] Eosinophils (Bld) [#/Vol] 0.09 10*3/uL Normal <0.46 [facility] Comment on above: Order Comment: Speci men Type: BLOOD SPECIMENOrdering Facility: [facility] Address: [address] [place] [address] Performed By: #### 5 7021-8 ####[facility] LABCLIA [id number] [place] [address] [place] Eosinophils/100 WBC (Bld) 1.1 % Normal [facility] Comment on above: Order Comment: Speci men Type: BLOOD SPECIMENOrdering Facility: [facility] Address: [address] [place] [address] Performed By: #### 5 7021-8 ####[facility] LABCLIA [id number] [address] [place] Erythrocyte distribution width (RBC) [Ratio] 19.6 % High 11.5-15.0 [facility] Comment on above: Order Comment: Speci men Type: BLOOD SPECIMENOrdering Facility: [facility] Address: [address] [place] [address] Performed By: #### 5 7021-8 ####[facility] LABCLIA [id number] [address] [place] Hematocrit (Bld) [Volume fraction] 26.6 % Low 39.0-51.0 [facility] Comment on above: Order Comment: Speci men Type: BLOOD SPECIMENOrdering Facility: [facility] Address: [address] [place] [address] Performed By: #### 5 7021-8 ####[facility] LABCLIA [id number] [place] [address] [place] Hemoglobin (Bld) [Mass/Vol] 8.8 g/dL Low 13.0-17.0 [facility] Comment on above: Order Comment: Speci men Type: BLOOD SPECIMENOrdering Facility: [facility] Address: [address] [place] [address] Performed By: #### 5 7021-8 ####[facility] LABCLIA [id number] [place] [address] [facility] Lymphocytes (Bld) [#/Vol] 1.19 10*3/uL Normal 1.00-4.00 [facility] Comment on above: Order Comment: Speci men Type: BLOOD SPECIMENOrdering Facility: [facility] Address: [address] [place] [address] Performed By: #### 5 7021-8 ####[facility] LABCLIA [id number] [place] [address] [facility] Lymphocytes/100 WBC (Bld) 14.7 % Normal [facility] Comment on above: Order Comment: Speci men Type: BLOOD SPECIMENOrdering Facility: [facility] Address: [address] [place] [address] Performed By: #### 5 7021-8 ####[facility] LABCLIA [id number] [address] MCH (RBC) [Entitic mass] 37.0 pg High 26.0-34.0 [facility] Comment on above: Order Comment: Speci men Type: BLOOD SPECIMENOrdering Facility: [facility] Address: [address] [place] [address] Performed By: #### 5 7021-8 ####[facility] LABCLIA [id number] [place] [address] [facility] MCHC (RBC) [Mass/Vol] 33.1 g/dL Normal 30.5-36.0 [facility] Comment on above: Order Comment: Speci men Type: BLOOD SPECIMENOrdering Facility: [facility] Address: [address] [place] [address] Performed By: #### 5 7021-8 ####[facility] LABCLIA [id number] [place] [address] [place] MCV (RBC) [Entitic vol] 111.8 fL High 80.0-100.0 [facility] Comment on above: Order Comment: Speci men Type: BLOOD SPECIMENOrdering Facility: [facility] Address: [address] [place] [address] Performed By: #### 5 7021-8 ####[facility] LABCLIA [id number] [place] [address] [place] Monocytes (Bld) [#/Vol] 1.03 10*3/uL High <0.87 [facility] Comment on above: Order Comment: Speci men Type: BLOOD SPECIMENOrdering Facility: [facility] Address: [address] [place] [address] Performed By: #### 5 7021-8 ####[facility] LABCLIA [id number] [place] [address] [place] Monocytes/100 WBC (Bld) 12.7 % Normal [facility] Comment on above: Order Comment: Speci men Type: BLOOD SPECIMENOrdering Facility: [facility] Address: [address] [place] [address] Performed By: #### 5 7021-8 ####[facility] LABCLIA [id number] [place] [address] [place] Neutrophils (Bld) [#/Vol] 5.69 10*3/uL Normal 1.45-7.50 [facility] Comment on above: Order Comment: Speci men Type: BLOOD SPECIMENOrdering Facility: [facility] Address: [address] [place] [address] Performed By: #### 5 7021-8 ####[facility] LABCLIA [id number] [place] [address] [place] Neutrophils/100 WBC (Bld) 70.0 % Normal [facility] Comment on above: Order Comment: Speci men Type: BLOOD SPECIMENOrdering Facility: [facility] Address: [address] [place], [place] [address] Performed By: #### 5 7021-8 ####[facility] LABCLIA [id number] [place] [address] [place] [facility] Platelet mean volume (Bld) [Entitic vol] 10.8 fL Normal 9.0-12.7 [facility] Comment on above: Order Comment: Speci men Type: BLOOD SPECIMENOrdering Facility: [facility] Address: [address] [place] [address] Performed By: #### 5 7021-8 ####[facility] LABCLIA [id number] [place] [address] [place] Platelets (Bld) [#/Vol] 239 10*3/uL Normal 150-400 [facility] Comment on above: Order Comment: Speci men Type: BLOOD SPECIMENOrdering Facility: [facility] Address: [address] [place], [place] [address] Performed By: #### 5 7021-8 ####[facility] LABCLIA [id number] [place] [address] [place] RBC (Bld) [#/Vol] 2.38 10*6/uL Low 4.20-6.00 [facility] Comment on above: Order Comment: Speci men Type: BLOOD SPECIMENOrdering Facility: [facility] Address: [address] [place], [place] [address] Performed By: #### 5 7021-8 ####[facility] Human ServicesALIRE[facility] LABCLIA [id number] [place] [address] [place] WBC (Bld) [#/Vol] 8.12 10*3/uL Normal 3.70-11.00 [facility] Comment on above: Order Comment: Speci men Type: BLOOD SPECIMENOrdering Facility: [facility] Address: [address] [place], [place] [address] Performed By: #### 5 7021-8 ####[facility] LABIA [id number] [place] [address] [facility] ED NOTEon 07-04-2022 ED NOTE HNO ID: [id number] Author: Rosa Carter RN Service: Emergency Medicine Author Type: Registered Nurse Type: ED Notes Filed: 07/04/2022 6:27 PM Note Text: Report given to [facility]. Normal [facility] ED NOTE HNO ID: [id number] Author: Rosa Carter RN Service: Emergency Medicine Author Type: Registered Nurse Type: ED Notes Filed: 07/04/2022 5:57 PM Note Text: Report given to zak jiménez. Normal [facility] ED NOTE HNO ID: [id number] Author: Ju Huynh RN Service: Emergency Medicine Author Type: Registered Nurse Type: ED Notes Filed: 07/04/2022 2:11 PM Note Text: Bilateral leg swelling x1 month, states swelling has moved to scrotum. States SOB. Normal [facility] ED PROV NOTEon 07-04-2022 ED PROV NOTE Normal [facility] ED PROV NOTE Normal [facility] NT-proBNP SerPl-ncon 07-04 Natriuretic peptide.B prohormone N-Terminal [Mass/Vol] 03467 pg/mL High <450 [facility] Comment on above: Order Comment: Speci men Type: BLOOD SPECIMENOrdering Facility: [facility] Address: [address] [place] [address] Performed By: #### T JEAN CARLOS 86122-7 ####[facility] [id number] [place] [address] [facility] OF [place] SARS-CoV-2 RNA Resp Ql OLIVER+p robeon 07-04-2022 SARS-CoV-2 (COVID-19) RNA OLIVER+probe Ql (Resp) SARS-CoV-2 (Agent of COVID-19) Not Detected by RT-PCR or equivalent method. Normal Not Detected [facility] Comment on above: Order Comment: Speci men Type: SWAB OF INTERNAL NOSEOrdering Facility: [facility] Address: [address] [place], [place] [address] Result Comment: This test has been authorized by FDA under an Emergency Use Authorization (EUA). Performed By: #### 9 4500-6 ####[facility] LABCLIA [id number] [place] [address] [place] TROPONIN Ion 07-04-2022 Troponin I.cardiac [Mass/Vol] 0.050 ng/mL High <0.040 [facility] Comment on above: Order Comment: Speci men Type: BLOOD SPECIMENOrdering Facility: [facility] Address: [address] [place] [address] Performed By: #### T ROP, 79960-6 ####[facility] LABCLIA [id number] [address] [place] Urinalysis complete panel (U )on 07-04-2022 Bilirubin Ql (U) Negative Normal Negative [facility] Comment on above: Order Comment: Speci men Type: URINE SPECIMENOrdering Facility: [facility] Address: [address] [place] [address] Performed By: #### 2 4356-8 ####[facility] LABCLIA [id number] [place] [address] [place] Clarity (Unsp spec) Clear Normal Clear [facility] Comment on above: Order Comment: Speci men Type: URINE SPECIMENOrdering Facility: [facility] Address: [address] [place] [address] Performed By: #### 2 4356-8 ####[facility] LABCLIA [id number] [place] [address] [place] [facility] Color (U) Yellow Normal Yellow [facility] Comment on above: Order Comment: Speci men Type: URINE SPECIMENOrdering Facility: [facility] Address: [address] [place] [address] Performed By: #### 2 4356-8 ####[facility] LABCLIA [id number] [address] Glucose Test strip (U) [Mass/Vol] Negative Normal Negative [facility] Comment on above: Order Comment: Speci men Type: URINE SPECIMENOrdering Facility: [facility] Address: [address] [place] [address] Performed By: #### 2 4356-8 ####[facility] LABCLIA [id number] [address] Hemoglobin Ql (U) Negative Normal Negative [facility] Comment on above: Order Comment: Speci men Type: URINE SPECIMENOrdering Facility: [facility] Address: [address] [place] [address] Performed By: #### 2 4356-8 ####[facility] LABCLIA [id number] [address] Ketones Ql (U) Negative Normal Negative [facility] Comment on above: Order Comment: Speci men Type: URINE SPECIMENOrdering Facility: [facility] Address: [address] [place] [address] Performed By: #### 2 4356-8 ####[facility] LABCLIA [id number] [address] Leukocyte esterase Test strip Ql (U) Negative Normal Negative [facility] Comment on above: Order Comment: Speci men Type: URINE SPECIMENOrdering Facility: [facility] Address: [address] [place] [address] Performed By: #### 2 4356-8 ####[facility] LABCLIA [id number] [address] Nitrite Ql (U) Negative Normal Negative [facility] Comment on above: Order Comment: Speci men Type: URINE SPECIMENOrdering Facility: [facility] Address: [address] [place] [address] Performed By: #### 2 4356-8 ####[facility] LABCLIA [id number] [place] [address] [place] pH (U) 5.5 [pH] Normal 5.0-8.0 [facility] Comment on above: Order Comment: Speci men Type: URINE SPECIMENOrdering Facility: [facility] Address: [address] [place] [address] Performed By: #### 2 4356-8 ####[facility] LABCLIA [id number] [place] [address] [place] Protein (U) [Mass/Vol] Trace Abnormal Negative [facility] Comment on above: Order Comment: Speci men Type: URINE SPECIMENOrdering Facility: [facility] Address: [address] [place] [address] Performed By: #### 2 4356-8 ####[facility] LABIA [id number] [place] [address] [place] RBC LM.HPF (Urine sed) [#/Area] 0-3 /HPF Normal 0-3 /HPF [facility] Comment on above: Order Comment: Speci men Type: URINE SPECIMENOrdering Facility: [facility] Address: [address] [place] [address] Performed By: #### 2 4356-8 ####[facility] LABCLIA [id number] [place] [address] [place] Specific gravity (U) [Rel density] <1.005 Low 1.005-1.03 0 [facility] Comment on above: Order Comment: Speci men Type: URINE SPECIMENOrdering Facility: [facility] Address: [address] [place] [address] Performed By: #### 2 4356-8 ####WYALIREZA YANG LABCLIA [id number] [place] [address] [facility] [place] Urobilinogen Ql (U) Negative Normal Negative [facility] Comment on above: Order Comment: Speci men Type: URINE SPECIMENOrdering Facility: [facility] Address: [address] [place], [place] [address] Performed By: #### 2 4356-8 ####[facility] LABCLIA [id number] [place] [address] [facility] [place] WBC LM.HPF (Urine sed) [#/Area] 0-5 /HPF Normal 0-5 /HPF [facility] Comment on above: Order Comment: Speci men Type: URINE SPECIMENOrdering Facility: [facility] Address: [address] [place] [address] Performed By: #### 2 4356-8 ####[facility] LABCLIA [id number] [place] [address] [place] XR CHEST 2V FRONTAL/LATon XR CHEST 2V FRONTAL/LAT Normal [facility] XR KNEE LIMITED 2V AP/LAT RI GHTon 06-04-2022 [facility] MRI LUMBAR SPINE WO IVCONon 05-26-2022 MRI LUMBAR SPINE WO IVCON Normal [facility] BMPon 09-20-2021 Anion gap [Moles/Vol] 8 mmol/L Normal 5-16 [facility] Comment on above: Order Comment: Campu s: M Performed By: #### L 500.76222, L500.12918 #### [facility] [place] [address] Calcium [Mass/Vol] 9.4 mg/dL Normal 8.5-10.5 [facility] Comment on above: Order Comment: Campu s: M Result Comment: NOTE NEW NORMAL RANGE DUE TO REAGENT CHANGE Performed By: #### L 500.35680, L500.16753 #### [facility] [place] [address] Chloride [Moles/Vol] 103 mmol/L Normal 98-107 [facility] Comment on above: Order Comment: Campu s: M Performed By: #### L 500.77082, L500.97825 #### [facility] [address] [place] [address] CO2 [Moles/Vol] 27.0 mmol/L Normal 21-32 [facility] Comment on above: Order Comment: Tomer s: M Performed By: #### L 500.83138, L500.92842 #### [facility] [place] [address] Creatinine [Mass/Vol] 0.90 mg/dL Normal 0.5-1.4 [facility] Comment on above: Order Comment: Tomer s: M Result Comment: NOTE NEW NORMAL RANGE DUE TO REAGENT CHANGE Patients receiving either N-Acetylcysteine (NAC) or Metamizole prior to venipuncture, may have falsely depressed results. Performed By: #### L 500.44276, L500.78753 #### [facility] [address] [place] [address] Glucose [Mass/Vol] 102 mg/dL High 70-100 [facility] Comment on above: Order Comment: Tomer s: M Result Comment: 70-1 00- Normal Fasting; 100-125 Impaired Fasting; greater than 126 on more than one result- Diabetes. ADA guidelines. Results may be falsely elevated after the administration of Sulfapyridine. Results may be falsely depressed after the administration of Sulfasalazine. Performed By: #### L 500.94245, L500.36656 #### [facility] [place] [address] Potassium [Moles/Vol] 4.5 mmol/L Normal 3.5-5.1 [facility] Comment on above: Order Comment: Tomer s: M Result Comment: Slig ht Hemolysis, Result may be affected. Performed By: #### L 500.87480, L500.84672 #### [facility] [address] [place] [address] Sodium [Moles/Vol] 138 mmol/L Normal 136-145 [facility] Comment on above: Order Comment: Campu s: M Performed By: #### L 500.83975, L500.27508 #### [facility] [address] [place] [address] Urea nitrogen [Mass/Vol] 25 mg/dL Normal 7-26 [facility] Comment on above: Order Comment: Campu s: M Performed By: #### L 500.85708, L500.84348 #### [facility] [address] [place] [address] Urea nitrogen/Creatinine [Mass ratio] 28 mg/mg High 15-24 [facility] Comment on above: Order Comment: Campu s: M Performed By: #### L 500.31146, L500.50488 #### [facility] [address] [place] [address] CBC W/DIFFon 09-20-2021 BASO ABS 0.00 K/CU MM Normal 0-0.2 [facility] Comment on above: Order Comment: Campu s: M Performed By: #### L 200.16234 #### [facility] [address] [place] [address] Basophils/100 WBC (Bld) 0.6 % Normal 0-2 [facility] Comment on above: Order Comment: Campu s: M Performed By: #### L 200.24211 #### [facility] [address] [place] [address] EOS ABS 0.20 K/CU MM Normal 0-0.5 [facility] Comment on above: Order Comment: Campu s: M Performed By: #### L 200.04719 #### [facility] [address] [place] [address] Eosinophils/100 WBC (Bld) 2.7 % Normal 0-5 [facility] Comment on above: Order Comment: Campu s: M Performed By: #### L 200.15941 #### [facility] [address] [place] [address] Erythrocyte distribution width (RBC) [Ratio] 19.5 % High 11-14.5 [facility] Comment on above: Order Comment: Campu s: M Performed By: #### L 200.95952 #### [facility] [address] [place] [address] Hematocrit (Bld) [Volume fraction] 27.7 % Low 41.0-53.0 [facility] Comment on above: Order Comment: Campu s: M Performed By: #### L 200.92928 #### [facility] [address] [place] [address] Hemoglobin (Bld) [Mass/Vol] 9.4 g/dL Low 13.5-17.5 [facility] Comment on above: Order Comment: Campu s: M Performed By: #### L 200.57723 #### [facility] [address] [place] [address] IMMATR GRAN ABS 0.00 K/CU MM Normal Less than 2 [facility] Comment on above: Order Comment: Campu s: M Performed By: #### L 200.18208 #### [facility] [address] [place] [address] IMMATURE GRAN % 0.5 % Normal Less than 2 [facility] Comment on above: Order Comment: Campu s: M Performed By: #### L 200.44596 #### [facility] [address] [place] [address] LYMPH ABS 1.60 K/CU MM Normal 0.9-4.4 [facility] Comment on above: Order Comment: Campu s: M Performed By: #### L 200.07409 #### [facility] [address] [place] [address] Lymphocytes/100 WBC (Bld) 24.9 % Normal 20-40 [facility] Comment on above: Order Comment: Campu s: M Performed By: #### L 200.21513 #### [facility] [address] [place] [address] MCHC (RBC) [Mass/Vol] 33.9 g/dL Normal 32.0-36.0 [facility] Comment on above: Order Comment: Campu s: M Performed By: #### L 200.01323 #### [facility] [address] [place] [address] MCV (RBC) [Entitic vol] 104.9 fL High 80.0-99.0 [facility] Comment on above: Order Comment: Campu s: M Performed By: #### L 200.57457 #### [facility] [address] [place] [address] MONO ABS 0.80 K/CU MM Normal 0.1-1.1 [facility] Comment on above: Order Comment: Campu s: M Performed By: #### L 200.07118 #### [facility] [address] [place] [address] Monocytes/100 WBC (Bld) 11.9 % High 2-10 [facility] Comment on above: Order Comment: Campu s: M Performed By: #### L 200.11842 #### [facility] [address] [place] [address] NEUTROPHIL ABS 3.70 K/CU MM Normal 2.0-8.3 [facility] Comment on above: Order Comment: Campu s: M Performed By: #### L 200.26810 #### [facility] [address] [place] [address] Neutrophils/100 WBC (Bld) 59.4 % Normal 45-75 [facility] Comment on above: Order Comment: Campu s: M Performed By: #### L 200.10459 #### [facility] [place] [id number] Nucleated RBC/100 WBC (Bld) [Ratio] 0.3 % Normal Less than 1 [facility] Comment on above: Order Comment: Campu s: M Performed By: #### L 200.62280 #### [facility] [address] [place], [place] [address] Platelet mean volume (Bld) [Entitic vol] 11.6 fL Normal 9.4-12.4 [facility] Comment on above: Order Comment: Campu s: M Performed By: #### L 200.45596 #### [facility] [address] [place] [address]17 PLT 278 K/CU MM Normal 150-450 [facility] Comment on above: Order Comment: Campu s: M Performed By: #### L 200.91331 #### [facility] [address] [place] [address] RBC 2.64 M/CU MM Low 4.50-6.00 [facility] Comment on above: Order Comment: Campu s: M Performed By: #### L 200.92065 #### [facility] [address] [place], [place] [address] WBC 6.3 K/CUMM Normal 4.5-11.0 [facility] Comment on above: Order Comment: Campu s: M Performed By: #### L 200.96701 #### [facility] [address] [place] [address] Chava 09-20-2021 EMERGENCY PHYSICIAN REPORT This is a preliminary report only, as the practitioner review and authentication has not occurred. 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 Identified to have atrial fibrillation at that time initiated on Coumadin. He resides here locally and follows with Dr. Posadas and Dr. Minor. He was changed over to Xarelto by his senior medical director for his A. fib anticoagulation upon his return. He has been doing well postoperatively [facility] NAME: SRINI LUIS [address] [facility] [address] Mercado MEDICAL REC #: [id number] [place] [address] EMERGENCY DEPARTMENT REPORT EMERGENCY DEPARTMENT PHYSICIAN although [...] of cellulitis along the leg. Neurological: Alert, [facility] PATIENT NAME: SRINI LUIS [address] [facility] [address] Mercado MEDICAL REC #: [id number] [place] [address] EMERGENCY DEPARTMENT REPORT EMERGENCY DEPARTMENT PHYSICIAN Oriented [...] or lymphati (more content not included)... [facility] IF AMER Greater than 60 Normal [facility] Comment on above: Order Comment: Tomer s: M Performed By: #### L 500.58160, L500.01521 #### [facility] [address] [place] [address] IF non-AFR AMER Greater than 60 Normal [facility] Comment on above: Order Comment: Tomer s: M Performed By: #### L 500.41487, L500.19115 #### [facility] [address] [place] [address]# [phone] [facility] 09-20-2021 VENOUS DUPLEX REPORT Normal [facility] VASCULAR REPORT -- Patient: SRINI LUIS Account [id number] Ordering Phy: MR: [id number] Reason for Visit: SENT BY DR FOR LEG ISSUE - PROTRUDING SKIN Date of Service 09/20/21 Reading Physician: David Ledbetter MD [id number] SINGLE LE VENOUS DUPLEX SCAN [address] [place] [address] Non- Invasive Vascular Laboratory Lower Extremity Venous Duplex ____ Name: SRINI LUIS Study Date: 09/20/2021 06:14 PM Patient Location: [facility] : 1935 Gender: Male Age: 85 yrs Ethnicity: MD Accession No. [id number] No. [id number] Order No. [id number] Reason For Study: M79.89 (Swelling) Other specified soft tissue disorders Interpretation Summary No evidence of deep vein thrombosis (DVT) or superficial vein thrombosis in the right lower extremity. Non vascular area along anterior medial(area CC: Benny Stoll MD [facility] PATIENT NAME: SRINI LUIS [address] [place] [address] Dr. Mercado MEDICAL REC #: [id number] [place] [address] ADMIT DATE: DISCHARGE DATE: 09/20/21 VENOUS DUPLEX REPORT ATTENDING PHY: Benny Stoll MD Electronically Signed by: David Ledbetter MD [facility] Date: 09/20/21 VASCULAR REPORT -- Patient: SRINI LUIS Account [id number] Ordering Phy: MR: [id number] Reason for Visit: SENT BY DR FOR LEG ISSUE - PROTRUDING SKIN Date of Service 09/20/21 Reading Physician: David Ledbetter MD of [facility]) measures 13.4 x 1.63 x 2.75 [...] Ant Tib: Completely CC: Benny Stoll MD [facility] PATIENT NAME: SRINI LUIS [address] [facility] [address] Mercado MEDICAL REC #: [id number] [place] [address] ADMIT DATE: DISCHARGE DATE: 09/20/21 VENOUS DUPLEX REPORT ATTENDING PHY: Benny Stoll MD Electronically Signed by: David Ledbetter MD Esign Date: 09/20/21 VASCULAR REPORT -- Patient: SRINI LUIS Account [id number] Ordering Phy: MR: [id number] Reason for Visit: SENT BY DR FOR [...] x 2.75 cm. CC: Benny Stoll MD [facility] PATIENT NAME: SRINI LUIS [address] [facility] [address] Mercado MEDICAL REC #: [id number] [place] [address] ADMIT DATE: DISCHARGE DATE: 09/20/21 VENOUS DUPLEX REPORT ATTENDING PHY: Benny Stoll MD Electronically Signed by: David Ledbetter MD Esign Date: 09/20/21 VASCULAR REPORT -- Patient: SRINI LUIS Account [id number] Ordering Phy: MR: [id number] Reason for Visit: SENT BY FOR LEG ISSUE - PROTRUDING SKIN Date of Service 09/20/21 Reading Physician: David Ledbetter MD ____ Electronically signed b (more content not included)... Normal [facility] US DVT LOWER RTon 02-01-2021 US DVT LOWER RT Final Report DATE OF EXAM: Feb 01 2021 2:00PM [facility] 1007 - US DVT LOWER RT / [...] imaged segments of the right lower extremity. Talcer: PSCB Transcribe Date/Time: Feb 01 2021 2:03P Dictated by : LARON CEDEÑO MD This examination was interpreted and the report reviewed and electronically signed by: LARON CEDEÑO MD on Feb 01 2021 2:05PM EST Normal [facility] CT ANKLE WO IVCON RTon 10-16 CT ANKLE WO IVCON RT Final Report DATE OF EXAM: Oct 16 2020 6:20PM [facility] 0061 - CT ANKLE WO IVCON [...] tenosynovitis versus communication with the ankle joint. Talcer: BERNARDA Transcribe Date/Time: Oct 17 2020 8:58A Dictated by : ISABEL ZAVALETA MD This examination was interpreted and the report reviewed and electronically signed by: ISABEL ZAVALETA MD on Oct 17 2020 9:10AM EST Normal [facility] Clinical Summary: HMSPatient IDon 09-28-2020 AOP [facility] Work Phone: Clinical Lists Update: Prelo ad Extendedon 09-27-2020 Tobacco smoking status NHIS Tobacco smoking status [facility] Work Phone: Clinical Summary: Data Submi tted by Patient in [place] 09-27-2020 #DEP CHLDRN No [facility] Work Phone: 3+ETOHDAILY less than 1 drink per day [facility] Work Phone: ALLERGY COMM Simvastatin [facility] Work Phone: ASTHEHSZHOUS 1 floor [facility] Work Phone: DEATHCAU DAD Heart Disease [facility] Work Phone: DEATHCAU MOM Heart [facility] Work Phone: DEP ALG LIST I don't have any adalberto g allergies.,I don't have any food allergies.,I don't have any environmental allergies. 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 [facility] Work Phone: DEP ETOH USE Yes [facility] Work Phone: DEP EXERCISE Yes [facility] Work Phone: DEP EXERTYP cycling [facility] Work Phone: DEP MED LIST Aleve 220 mg Cap, 1 times per day,Multi-Delyn 10.8 mg/mL;72 unt/mL;2.7 unt/mL;2.44 mg/mL;0.189 mg/mL;0.168 mg/mL;0.168 mg/mL;450 unt/mL;0.39579 mg/mL Annika, 1 times per day,Animi-3 With Vitamin D 1000 unt;1 mg;500 mg;200 mg;12.5 mg Cap, 1 times per day,Levothyroxine 0.112 mg Tab, 1 times per day,Fisherman's Friend 10 mg Lozenge, 1 times per day,Ecotrin [address], 1 times per day,Atorvastatin 10 mg Tab, 1 times per day [facility] Work Phone: DEP SH CSMO former smoker [facility] Work Phone: DEP SH FSMO 1988 [facility] Work Phone: DEP SH MAST [facility] Work Phone: DEP SURGERY Elbow surgery, Shoul lyn replacement - total [facility] Work Phone: DEPADDLPROB Myasthenia Gravis, S reji stenosis, Both shoulders replaced [facility] Work Phone: DEPEXER FREQ 3 days per week [facility] Work Phone: DEPFHMATUNKN My mother's health h istory is unknown [facility] Work Phone: ETOHPERFRM beer [facility] Work Phone: EXER[email or web address] I am [employer] member and use various equipment. [facility] Work Phone: FATHER A/D [facility] Work Phone: [id number] I live in [facility] residential facility [facility] Work Phone: MOTHER A/D [facility] Work Phone: PREPRGETOH Zero times in the pa st 30 years of having more than 2 in any one day. [facility] Work Phone: RLATNSHPINFR Self [facility] Work Phone: [facility] Work Phone: TOBUSEWHEN 25 [facility] Work Phone: WEBSURGCOM Both shoulders [facility] Work Phone: Vital Signs Date Time Vital Sign Value Performing Clinician Facility 07-07-2025 10:03-0400 Body mass index (BMI) [Ratio] 28.74 kg/m2 Baljinder Galloway DO Work Phone: [facility] 07-07-2025 10:03-0400 Body temperature 97.11 [degF] Baljinder Galloway DO Work Phone: [facility] 07-07-2025 10:03-0400 Body weight 83.23 kg Baljinder Galloway DO Work Phone: [facility] 07-07-2025 10:03-0400 Diastolic blood pressure 87 mm[Hg] Baljinder Robbinsi DO Work Phone: [facility] 07-07-2025 10:03-0400 Heart rate 43 /min Baljinder Robbinsi DO Work Phone: [facility] 07-07-2025 10:03-0400 SaO2% (BldA) [Mass fraction] 96 % Baljinder Robbinsi DO Work Phone: [facility] 07-07-2025 10:03-0400 Systolic blood pressure 120 mm[Hg] Baljinder Robbinsi DO Work Phone: [facility] 06-29-2025 14:10-0400 Body mass index (BMI) [Ratio] 27.97 kg/m2 Ronaldo Pleitez MD Work Phone: [facility] 06-29-2025 14:10-0400 Body weight 81 kg Ronaldo Pleitez MD Work Phone: [facility] 06-29-2025 14:10-0400 Diastolic blood pressure 72 mm[Hg] Ronaldo Pleitez MD Work Phone: [facility] 06-29-2025 14:10-0400 Heart rate 72 /min Ronaldo Pleitez MD Work Phone: [facility] 06-29-2025 14:10-0400 Systolic blood pressure 118 mm[Hg] Ronaldo Pleitez MD Work Phone: [facility] 06-26-2025 07:38-0400 Body temperature 98 [degF] Dr. Ronaldo Pleitez MD Work Phone: [facility] 06-26-2025 07:38-0400 Diastolic blood pressure 52 mm[Hg] Dr. Ronaldo Pleitez MD Work Phone: [facility] 06-26-2025 07:38-0400 Heart rate 67 /min Dr. Ronaldo Pleitez MD Work Phone: [facility] 06-26-2025 07:38-0400 Respiratory rate 18 /min Dr. Ronaldo Pleitez MD Work Phone: 0(330)228-503756 [place] [address] 06-26-2025 07:38-0400 SaO2% (BldA) [Mass fraction] 98 % Dr. Ronaldo Pleitez MD Work Phone: 1(254)728-765656 [place] [address] 06-26-2025 07:38-0400 Systolic blood pressure 121 mm[Hg] Dr. Ronaldo Pleitez MD Work Phone: 1(673)159-147256 [place] [address] 06-26-2025 05:00-0400 Inhaled oxygen flow rate 2 L/min Dr. Ronaldo Pleitez MD Work Phone: 5(853)881-965556 [place] [address] 06-23-2025 17:30-0400 Body height 167.[address] Ronaldo Pleitez MD Work Phone: 7(764)203-074356 [place] [address] 06-23-2025 17:30-0400 Body mass index (BMI) [Ratio] 28.4 kg/m2 Dr. Ronaldo Pleitez MD Work Phone: 6(364)337-555056 [place] [address] 06-23-2025 17:30-0400 Body weight 79.[address] Ronaldo Pleitez MD Work Phone: 1(160)241-851656 [place] [address] 06-23-2025 16:25-0400 Body temperature 97.7 [degF] Dr. Ronaldo Pleitez MD Work Phone: 0(296)729-797556 [place] [address] 06-23-2025 16:25-0400 Diastolic blood pressure 71 mm[Hg] Dr. Ronaldo Pleitez MD Work Phone: 5(406)654-392156 [place] [address] 06-23-2025 16:25-0400 Heart rate 62 /min Dr. Ronaldo Pleitez MD Work Phone: 7(266)496-041856 [place] [address] 06-23-2025 16:25-0400 Respiratory rate 18 /min Dr. Ronaldo Pleitez MD Work Phone: 7(507)044-687356 [place] [address] 06-23-2025 16:25-0400 SaO2% (BldA) [Mass fraction] 100 % Dr. Ronaldo Pleitez MD Work Phone: 9(259)473-380756 [place] [address] 06-23-2025 16:25-0400 Systolic blood pressure 98 mm[Hg] Dr. Ronaldo Pleitez MD Work Phone: 7(534)678-812856 [place] [address] 06-23-2025 13:39-0400 Body mass index (BMI) [Ratio] 28.5 kg/m2 Dr. Ronaldo Pleitez MD Work Phone: 3(450)508-876356 [place] [address] 06-23-2025 13:39-0400 Body weight 82.[address] Ronaldo Pleitez MD Work Phone: 9(489)120-856656 [place] [address] 06-23-2025 13:25-0400 Body height 170.[address] Ronaldo Pleitez MD Work Phone: 0(276)860-360456 [place] [address] 06-23-2025 13:25-0400 Body temperature 97.9 [degF] Dr. Ronaldo Pleitez MD Work Phone: 0(530)028-207856 [place] [address] 06-23-2025 13:25-0400 Diastolic blood pressure 72 mm[Hg] Dr. Ronaldo Pleitez MD Work Phone: 9(241)215-046956 [place] [address] 06-23-2025 13:25-0400 Heart rate 61 /min Dr. Ronaldo Pleitez MD Work Phone: 1(100)919-320856 [place] [address] 06-23-2025 13:25-0400 Respiratory rate 16 /min Dr. Ronaldo Pleitez MD Work Phone: 3(407)385-202656 [place] [address] 06-23-2025 13:25-0400 SaO2% (BldA) [Mass fraction] 93 % Dr. Ronaldo Pleitez MD Work Phone: 2(905)050-434656 [place] [address] 06-23-2025 13:25-0400 Systolic blood pressure 121 mm[Hg] Dr. Ronaldo Pleitez MD Work Phone: 1(341)348-618524 [place] [address] 06-23-2025 10:30-0400 Body temperature 97.11 [degF] Ronaldo Pleitez MD Work Phone: [facility] 06-23-2025 10:30-0400 Diastolic blood pressure 64 mm[Hg] Ronaldo Pleitez MD Work Phone: [facility] 06-23-2025 10:30-0400 Heart rate 60 /min Ronaldo Pleitez MD Work Phone: [facility] 06-23-2025 10:30-0400 Respiratory rate 16 /min Ronaldo Pleitez MD Work Phone: [facility] 06-23-2025 10:30-0400 SaO2% (BldA) [Mass fraction] 96 % Ronaldo Pleitez MD Work Phone: [facility] 06-23-2025 10:30-0400 Systolic blood pressure 114 mm[Hg] Ronaldo Pleitez MD Work Phone: [facility] 06-21-2025 11:11-0400 Body mass index (BMI) [Ratio] 29.8 kg/m2 Ronaldo Pleitez MD Work Phone: [facility] 06-21-2025 11:11-0400 Body temperature 97.2 [degF] Ronaldo Pleitez MD Work Phone: [facility] 06-21-2025 11:11-0400 Body weight 86.3 kg Ronaldo Pleitez MD Work Phone: [facility] 06-21-2025 11:11-0400 Heart rate 72 /min Ronaldo Pleitez MD Work Phone: [facility] 06-21-2025 11:11-0400 Respiratory rate 16 /min Ronaldo Pleitez MD Work Phone: [facility] 06-19-2025 00:29-0400 Body temperature 97.5 [degF] Dr. Ronaldo Pleitez MD Work Phone: [facility] 06-19-2025 00:29-0400 Diastolic blood pressure 72 mm[Hg] Dr. Ronaldo Pleitez MD Work Phone: [facility] 06-19-2025 00:29-0400 Heart rate 82 /min Dr. Ronaldo Pleitez MD Work Phone: [facility] 06-19-2025 00:29-0400 Respiratory rate 20 /min Dr. Ronaldo Pleitez MD Work Phone: [facility] 06-19-2025 00:29-0400 SaO2% (BldA) [Mass fraction] 97 % Dr. Ronaldo Pleitez MD Work Phone: [facility] 06-19-2025 00:29-0400 Systolic blood pressure 122 mm[Hg] Dr. Ronaldo Pleitez MD Work Phone: 2(001)725-969424 [place] [address] 06-18-2025 21:23-0400 Body mass index (BMI) [Ratio] 29.4 kg/m2 Dr. Ronaldo Pleitez MD Work Phone: 8(840)749-113824 [place] [address] 06-18-2025 21:23-0400 Body weight 85.[address] Ronaldo Pleitez MD Work Phone: 3(044)419-581156 [place] [address] 06-18-2025 20:55-0400 Body height 170.[address] Ronaldo Pleitez MD Work Phone: [facility] 06-09-2025 09:53-0400 Body temperature 97 [degF] Injection Wstr Work Phone: [facility] 06-09-2025 09:53-0400 Diastolic blood pressure 64 mm[Hg] Injection Wstr Work Phone: [facility] 06-09-2025 09:53-0400 Heart rate 81 /min Injection Wstr Work Phone: [facility] 06-09-2025 09:53-0400 Respiratory rate 12 /min Injection Wstr Work Phone: [facility] 06-09-2025 09:53-0400 SaO2% (BldA) [Mass fraction] 95 % Injection Wstr Work Phone: [facility] 06-09-2025 09:53-0400 Systolic blood pressure 122 mm[Hg] Injection Wstr Work Phone: [facility] 06-05-2025 14:37-0400 Body mass index (BMI) [Ratio] 25.84 kg/m2 Arabella SandersTiffanie CAKE PRESS OPERATOR HELPER.PHOTO MASK PATTERN GENERATOR Work Phone: [facility] 06-05-2025 14:37-0400 Body weight 74.84 kg Arabella Tiffanie CAKE PRESS OPERATOR HELPER.PHOTO MASK PATTERN GENERATOR Work Phone: [facility] 06-05-2025 14:37-0400 Diastolic blood pressure 82 mm[Hg] Arabella Tiffanie CAKE PRESS OPERATOR HELPER.PHOTO MASK PATTERN GENERATOR Work Phone: [facility] 06-05-2025 14:37-0400 Heart rate 84 /min Arabella Tiffanie CAKE PRESS OPERATOR HELPER.PHOTO MASK PATTERN GENERATOR Work Phone: [facility] 06-05-2025 14:37-0400 Respiratory rate 12 /min Arabella Tiffanie CAKE PRESS OPERATOR HELPER.PHOTO MASK PATTERN GENERATOR Work Phone: [facility] 06-05-2025 14:37-0400 SaO2% (BldA) [Mass fraction] 94 % Arabella Tiffanie CAKE PRESS OPERATOR HELPER.PHOTO MASK PATTERN GENERATOR Work Phone: [facility] 06-05-2025 14:37-0400 Systolic blood pressure 124 mm[Hg] Arabella Tiffanie CAKE PRESS OPERATOR HELPER.PHOTO MASK PATTERN GENERATOR Work Phone: [facility] 05-30-2025 12:49-0400 Body mass index (BMI) [Ratio] 25.84 kg/m2 Arabella Tiffanie CAKE PRESS OPERATOR HELPER.PHOTO MASK PATTERN GENERATOR Work Phone: [facility] 05-30-2025 12:49-0400 Body weight 74.84 kg Arabella Tiffanie CAKE PRESS OPERATOR HELPER.PHOTO MASK PATTERN GENERATOR Work Phone: [facility] 05-30-2025 12:49-0400 Diastolic blood pressure 74 mm[Hg] Arabella Tiffanie CAKE PRESS OPERATOR HELPER.PHOTO MASK PATTERN GENERATOR Work Phone: [facility] 05-30-2025 12:49-0400 Heart rate 74 /min Arabella Tiffanie CAKE PRESS OPERATOR HELPER.PHOTO MASK PATTERN GENERATOR Work Phone: [facility] 05-30-2025 12:49-0400 Respiratory rate 12 /min Arabella Tiffanie CAKE PRESS OPERATOR HELPER.PHOTO MASK PATTERN GENERATOR Work Phone: [facility] 05-30-2025 12:49-0400 SaO2% (BldA) [Mass fraction] 98 % Arabella Tiffanie CAKE PRESS OPERATOR HELPER.PHOTO MASK PATTERN GENERATOR Work Phone: [facility] 05-30-2025 12:49-0400 Systolic blood pressure 116 mm[Hg] Arabella Tiffanie CAKE PRESS OPERATOR HELPER.PHOTO MASK PATTERN GENERATOR Work Phone: [facility] 05-26-2025 09:47-0400 Diastolic blood pressure 54 mm[Hg] Injection Wstr Work Phone: [facility] 05-26-2025 09:47-0400 Heart rate 84 /min Injection Wstr Work Phone: [facility] 05-26-2025 09:47-0400 Respiratory rate 12 /min Injection Wstr Work Phone: [facility] 05-26-2025 09:47-0400 SaO2% (BldA) [Mass fraction] 97 % Injection Wstr Work Phone: [facility] 05-26-2025 09:47-0400 Systolic blood pressure 100 mm[Hg] Injection Wstr Work Phone: [facility] 05-25-2025 14:48-0400 Body mass index (BMI) [Ratio] 25.9 kg/m2 Arabella Tiffanie CAKE PRESS OPERATOR HELPER.PHOTO MASK PATTERN GENERATOR Work Phone: [facility] 05-25-2025 14:48-0400 Body weight 75 kg Arabella Tiffanie CAKE PRESS OPERATOR HELPER.PHOTO MASK PATTERN GENERATOR Work Phone: [facility] 05-25-2025 14:48-0400 Diastolic blood pressure 56 mm[Hg] Arabella Tiffanie CAKE PRESS OPERATOR HELPER.PHOTO MASK PATTERN GENERATOR Work Phone: [facility] 05-25-2025 14:48-0400 Heart rate 79 /min Arabella Tiffanie CAKE PRESS OPERATOR HELPER.PHOTO MASK PATTERN GENERATOR Work Phone: [facility] 05-25-2025 14:48-0400 Respiratory rate 16 /min Arabella Tiffanie CAKE PRESS OPERATOR HELPER.PHOTO MASK PATTERN GENERATOR Work Phone: [facility] 05-25-2025 14:48-0400 Systolic blood pressure 104 mm[Hg] Arabella Moreno CAKE PRESS OPERATOR HELPER.PHOTO MASK PATTERN GENERATOR Work Phone: [facility] 05-11-2025 09:58-0400 Body temperature 98.01 [degF] Injection Wstr Work Phone: [facility] 05-11-2025 09:58-0400 Diastolic blood pressure 72 mm[Hg] Injection Wstr Work Phone: [facility] 05-11-2025 09:58-0400 Heart rate 74 /min Injection Wstr Work Phone: [facility] 05-11-2025 09:58-0400 Respiratory rate 12 /min Injection Wstr Work Phone: [facility] 05-11-2025 09:58-0400 SaO2% (BldA) [Mass fraction] 94 % Injection Wstr Work Phone: [facility] 05-11-2025 09:58-0400 Systolic blood pressure 116 mm[Hg] Injection Wstr Work Phone: [facility] 04-28-2025 09:49-0400 Diastolic blood pressure 49 mm[Hg] Injection Wstr Work Phone: [facility] 04-28-2025 09:49-0400 Heart rate 78 /min Injection Wstr Work Phone: [facility] 04-28-2025 09:49-0400 Respiratory rate 12 /min Injection Wstr Work Phone: [facility] 04-28-2025 09:49-0400 SaO2% (BldA) [Mass fraction] 95 % Injection Wstr Work Phone: [facility] 04-28-2025 09:49-0400 Systolic blood pressure 97 mm[Hg] Injection Wstr Work Phone: [facility] 04-07-2025 11:21-0400 Body height 170.2 cm Iram Johnson APRN.PHOTO MASK PATTERN GENERATOR Work Phone: [facility] 04-07-2025 11:21-0400 Body mass index (BMI) [Ratio] 27.1 kg/m2 Iram Johnson CAKE PRESS OPERATOR HELPER.PHOTO MASK PATTERN GENERATOR Work Phone: [facility] 04-07-2025 11:21-0400 Body weight 78.47 kg Iram Johnson CAKE PRESS OPERATOR HELPER.PHOTO MASK PATTERN GENERATOR Work Phone: [facility] 04-07-2025 11:21-0400 Diastolic blood pressure 68 mm[Hg] Iram Johnson CAKE PRESS OPERATOR HELPER.PHOTO MASK PATTERN GENERATOR Work Phone: [facility] 04-07-2025 11:21-0400 Heart rate 83 /min Iram Johnson CAKE PRESS OPERATOR HELPER.PHOTO MASK PATTERN GENERATOR Work Phone: [facility] 04-07-2025 11:21-0400 Systolic blood pressure 130 mm[Hg] Iram Johnson CAKE PRESS OPERATOR HELPER.PHOTO MASK PATTERN GENERATOR Work Phone: [facility] 03-27-2025 14:49-0400 Body mass index (BMI) [Ratio] 27.28 kg/m2 Ronaldo Pleitez MD Work Phone: [facility] 03-27-2025 14:49-0400 Body weight 79 kg Ronaldo Pleitez MD Work Phone: [facility] 03-27-2025 14:49-0400 Diastolic blood pressure 58 mm[Hg] Ronaldo Pleitez MD Work Phone: [facility] 03-27-2025 14:49-0400 Heart rate 68 /min Ronaldo Pleitez MD Work Phone: [facility] 03-27-2025 14:49-0400 Respiratory rate 16 /min Ronaldo Pleitez MD Work Phone: [facility] 03-27-2025 14:49-0400 Systolic blood pressure 106 mm[Hg] Ronaldo Pleitez MD Work Phone: [facility] 03-17-2025 14:16-0400 Body temperature 97.59 [degF] Injection Wstr Work Phone: [facility] 03-17-2025 14:16-0400 Diastolic blood pressure 57 mm[Hg] Injection Wstr Work Phone: [facility] 03-17-2025 14:16-0400 Heart rate 55 /min Injection Wstr Work Phone: [facility] 03-17-2025 14:16-0400 Respiratory rate 12 /min Injection Wstr Work Phone: [facility] 03-17-2025 14:16-0400 SaO2% (BldA) [Mass fraction] 95 % Injection Wstr Work Phone: [facility] 03-17-2025 14:16-0400 Systolic blood pressure 116 mm[Hg] Injection Wstr Work Phone: [facility] 02-17-2025 09:55-0400 Body temperature 97.7 [degF] Injection Wstr Work Phone: [facility] 02-17-2025 09:55-0400 Diastolic blood pressure 57 mm[Hg] Injection Wstr Work Phone: [facility] Comment on above: DENIES ANY DIZZINESS 02-17-2025 09:55-0400 Heart rate 79 /min Injection Wstr Work Phone: [facility] 02-17-2025 09:55-0400 Respiratory rate 12 /min Injection Wstr Work Phone: [facility] 02-17-2025 09:55-0400 SaO2% (BldA) [Mass fraction] 93 % Injection Wstr Work Phone: [facility] 02-17-2025 09:55-0400 Systolic blood pressure 95 mm[Hg] Injection Wstr Work Phone: [facility] Comment on above: DENIES ANY DIZZINESS 02-03-2025 10:32-0400 Diastolic blood pressure 65 mm[Hg] Injection Wstr Work Phone: [facility] 02-03-2025 10:32-0400 Heart rate 83 /min Injection Wstr Work Phone: [facility] 02-03-2025 10:32-0400 Respiratory rate 12 /min Injection Wstr Work Phone: [facility] 02-03-2025 10:32-0400 SaO2% (BldA) [Mass fraction] 94 % Injection Wstr Work Phone: [facility] 02-03-2025 10:32-0400 Systolic blood pressure 100 mm[Hg] Injection Wstr Work Phone: [facility] 01-31-2025 10:54-0400 Body mass index (BMI) [Ratio] 26.55 kg/m2 Arabella Tiffanie CAKE PRESS OPERATOR HELPER.PHOTO MASK PATTERN GENERATOR Work Phone: [facility] 01-31-2025 10:54-0400 Body weight 76.9 kg Arabella Tiffanie CAKE PRESS OPERATOR HELPER.PHOTO MASK PATTERN GENERATOR Work Phone: [facility] 01-31-2025 10:54-0400 Diastolic blood pressure 78 mm[Hg] Arabella Tiffanie CAKE PRESS OPERATOR HELPER.PHOTO MASK PATTERN GENERATOR Work Phone: [facility] 01-31-2025 10:54-0400 Heart rate 78 /min Arabella Tiffanie CAKE PRESS OPERATOR HELPER.PHOTO MASK PATTERN GENERATOR Work Phone: [facility] 01-31-2025 10:54-0400 Respiratory rate 14 /min Arabella Tiffanie CAKE PRESS OPERATOR HELPER.PHOTO MASK PATTERN GENERATOR Work Phone: [facility] 01-31-2025 10:54-0400 SaO2% (BldA) [Mass fraction] 98 % Arabella Tiffanie CAKE PRESS OPERATOR HELPER.PHOTO MASK PATTERN GENERATOR Work Phone: [facility] 01-31-2025 10:54-0400 Systolic blood pressure 126 mm[Hg] Arabella Tiffanie CAKE PRESS OPERATOR HELPER.PHOTO MASK PATTERN GENERATOR Work Phone: [facility] 01-20-2025 10:36-0400 Body temperature 98.2 [degF] Injection Wstr Work Phone: [facility] 01-20-2025 10:36-0400 Diastolic blood pressure 69 mm[Hg] Injection Wstr Work Phone: [facility] 01-20-2025 10:36-0400 Heart rate 83 /min Injection Wstr Work Phone: [facility] 01-20-2025 10:36-0400 SaO2% (BldA) [Mass fraction] 94 % Injection Wstr Work Phone: [facility] 01-20-2025 10:36-0400 Systolic blood pressure 112 mm[Hg] Injection Wstr Work Phone: [facility] 01-06-2025 10:35-0500 Body mass index (BMI) [Ratio] 26.86 kg/m2 Baljinder Masci DO Work Phone: [facility] 01-06-2025 10:35-0500 Body temperature 97.2 [degF] Baljinder Masci DO Work Phone: [facility] 01-06-2025 10:35-0500 Body weight 77.79 kg Baljinder Masci DO Work Phone: [facility] 01-06-2025 10:35-0500 Diastolic blood pressure 70 mm[Hg] Baljinder Masci DO Work Phone: [facility] 01-06-2025 10:35-0500 Heart rate 83 /min Baljinder Masci DO Work Phone: [facility] 01-06-2025 10:35-0500 SaO2% (BldA) [Mass fraction] 93 % Baljinder Masci DO Work Phone: [facility] 01-06-2025 10:35-0500 Systolic blood pressure 115 mm[Hg] Baljinder Masci DO Work Phone: [facility] 12-23-2024 10:02-0500 Body mass index (BMI) [Ratio] 26.94 kg/m2 Injection Wstr Work Phone: [facility] 12-23-2024 10:02-0500 Body weight 78.02 kg Injection Wstr Work Phone: [facility] 12-23-2024 10:02-0500 Diastolic blood pressure 64 mm[Hg] Injection Wstr Work Phone: [facility] 12-23-2024 10:02-0500 Heart rate 82 /min Injection Wstr Work Phone: [facility] 12-23-2024 10:02-0500 Respiratory rate 12 /min Injection Wstr Work Phone: [facility] 12-23-2024 10:02-0500 SaO2% (BldA) [Mass fraction] 92 % Injection Wstr Work Phone: [facility] 12-23-2024 10:02-0500 Systolic blood pressure 106 mm[Hg] Injection Wstr Work Phone: [facility] 12-09-2024 11:32-0500 Body mass index (BMI) [Ratio] 26.94 kg/m2 Injection Wstr Work Phone: [facility] 12-09-2024 11:32-0500 Body temperature 98.1 [degF] Injection Wstr Work Phone: [facility] 12-09-2024 11:32-0500 Body weight 78.02 kg Injection Wstr Work Phone: [facility] 12-09-2024 11:32-0500 Diastolic blood pressure 68 mm[Hg] Injection Wstr Work Phone: [facility] 12-09-2024 11:32-0500 Heart rate 87 /min Injection Wstr Work Phone: [facility] 12-09-2024 11:32-0500 SaO2% (BldA) [Mass fraction] 94 % Injection Wstr Work Phone: [facility] 12-09-2024 11:32-0500 Systolic blood pressure 108 mm[Hg] Injection Wstr Work Phone: [facility] 11-24-2024 13:07-0500 Body mass index (BMI) [Ratio] 26.94 kg/m2 Injection Wstr Work Phone: [facility] 11-24-2024 13:07-0500 Body temperature 97.7 [degF] Injection Wstr Work Phone: [facility] 11-24-2024 13:07-0500 Body weight 78.02 kg Injection Wstr Work Phone: [facility] 11-24-2024 13:07-0500 Diastolic blood pressure 80 mm[Hg] Injection Wstr Work Phone: [facility] 11-24-2024 13:07-0500 Heart rate 83 /min Injection Wstr Work Phone: [facility] 11-24-2024 13:07-0500 Respiratory rate 12 /min Injection Wstr Work Phone: [facility] 11-24-2024 13:07-0500 SaO2% (BldA) [Mass fraction] 98 % Injection Wstr Work Phone: [facility] 11-24-2024 13:07-0500 Systolic blood pressure 119 mm[Hg] Injection Wstr Work Phone: [facility] 10-11-2024 10:06-0500 Body mass index (BMI) [Ratio] 27.41 kg/m2 Baljinder Masci DO Work Phone: [facility] 10-11-2024 10:06-0500 Body temperature 98.49 [degF] Baljinder Masci DO Work Phone: [facility] 10-11-2024 10:06-0500 Body weight 79.38 kg Baljinder Masci DO Work Phone: [facility] 10-11-2024 10:06-0500 Diastolic blood pressure 63 mm[Hg] Baljinder Masci DO Work Phone: [facility] 10-11-2024 10:06-0500 Heart rate 79 /min Baljinder Masci DO Work Phone: [facility] 10-11-2024 10:06-0500 SaO2% (BldA) [Mass fraction] 92 % Baljinder Masci DO Work Phone: [facility] 10-11-2024 10:06-0500 Systolic blood pressure 102 mm[Hg] Baljinder Masci DO Work Phone: [facility] 09-27-2024 11:02-0500 Body height 170.2 cm Iram Johnson APRN.PHOTO MASK PATTERN GENERATOR Work Phone: [facility] 09-27-2024 11:02-0500 Body mass index (BMI) [Ratio] 26.94 kg/m2 Iram Johnson CAKE PRESS OPERATOR HELPER.PHOTO MASK PATTERN GENERATOR Work Phone: [facility] 09-27-2024 11:02-0500 Body weight 78.02 kg Iram Johnson CAKE PRESS OPERATOR HELPER.PHOTO MASK PATTERN GENERATOR Work Phone: [facility] 09-27-2024 11:02-0500 Diastolic blood pressure 58 mm[Hg] Iram Johnson CAKE PRESS OPERATOR HELPER.PHOTO MASK PATTERN GENERATOR Work Phone: [facility] 09-27-2024 11:02-0500 Heart rate 62 /min Iram Johnson CAKE PRESS OPERATOR HELPER.PHOTO MASK PATTERN GENERATOR Work Phone: [facility] 09-27-2024 11:02-0500 Systolic blood pressure 116 mm[Hg] Iram Johnson CAKE PRESS OPERATOR HELPER.PHOTO MASK PATTERN GENERATOR Work Phone: [facility] 09-15-2024 11:34-0500 Body mass index (BMI) [Ratio] 26.94 kg/m2 Lauri Cook Work Phone: [facility] 09-15-2024 11:34-0500 Body temperature 98.2 [degF] Lauri Cook Work Phone: [facility] 09-15-2024 11:34-0500 Body weight 78.02 kg Lauri Cook Work Phone: [facility] 09-15-2024 11:34-0500 Diastolic blood pressure 70 mm[Hg] Aluri Cook Work Phone: [facility] 09-15-2024 11:34-0500 Heart rate 77 /min Lauri Cook Work Phone: [facility] 09-15-2024 11:34-0500 SaO2% (BldA) [Mass fraction] 94 % Lauri Cook Work Phone: [facility] 09-15-2024 11:34-0500 Systolic blood pressure 109 mm[Hg] Lauri Cook Work Phone: [facility] 07-29-2024 11:11-0400 Body mass index (BMI) [Ratio] 26.83 kg/m2 Ronaldo Pleitez MD Work Phone: [facility] 07-29-2024 11:11-0400 Body temperature 98.4 [degF] Ronaldo Pleitez MD Work Phone: [facility] 07-29-2024 11:11-0400 Body weight 77.7 kg Ronaldo Pleitez MD Work Phone: [facility] 07-29-2024 11:11-0400 Diastolic blood pressure 70 mm[Hg] Ronaldo Pleitez MD Work Phone: [facility] 07-29-2024 11:11-0400 Heart rate 80 /min Ronaldo Pleitez MD Work Phone: [facility] 07-29-2024 11:11-0400 Respiratory rate 18 /min Ronaldo Pleitez MD Work Phone: [facility] 07-29-2024 11:11-0400 SaO2% (BldA) [Mass fraction] 97 % Ronaldo Pleitez MD Work Phone: [facility] 07-29-2024 11:11-0400 Systolic blood pressure 118 mm[Hg] Ronaldo Pleitez MD Work Phone: [facility] 06-16-2024 08:51-0400 Body mass index (BMI) [Ratio] 27.1 kg/m2 Baljinder Robbinsi DO Work Phone: [facility] 06-16-2024 08:51-0400 Body temperature 98.1 [degF] Baljinder Robbinsi DO Work Phone: [facility] 06-16-2024 08:51-0400 Body weight 78.47 kg Baljinder Robbinsi DO Work Phone: [facility] 06-16-2024 08:51-0400 Diastolic blood pressure 55 mm[Hg] Baljinder Robbinsi DO Work Phone: [facility] 06-16-2024 08:51-0400 Heart rate 81 /min Baljinder Robbinsi DO Work Phone: [facility] 06-16-2024 08:51-0400 SaO2% (BldA) [Mass fraction] 96 % Baljinder Robbinsi DO Work Phone: [facility] 06-16-2024 08:51-0400 Systolic blood pressure 102 mm[Hg] Baljinder Masci DO Work Phone: [facility] 03-17-2024 11:42-0400 Body mass index (BMI) [Ratio] 26.08 kg/m2 Baljinder Masci DO Work Phone: [facility] 03-17-2024 11:42-0400 Body temperature 98.01 [degF] Baljinder Masci DO Work Phone: [facility] 03-17-2024 11:42-0400 Body weight 75.52 kg Baljinder Masci DO Work Phone: [facility] 03-17-2024 11:42-0400 Diastolic blood pressure 58 mm[Hg] Baljinder Robbinsi DO Work Phone: [facility] 03-17-2024 11:42-0400 Heart rate 76 /min Baljinder Masci DO Work Phone: [facility] 03-17-2024 11:42-0400 SaO2% (BldA) [Mass fraction] 95 % Baljinder Masci DO Work Phone: [facility] 03-17-2024 11:42-0400 Systolic blood pressure 102 mm[Hg] Baljinder Robbinsi DO Work Phone: [facility] 02-29-2024 14:10-0400 Body height 170.2 cm Iram Johnson APRN.PHOTO MASK PATTERN GENERATOR Work Phone: [facility] 02-29-2024 14:10-0400 Body mass index (BMI) [Ratio] 25.53 kg/m2 Iram Johnson CAKE PRESS OPERATOR HELPER.PHOTO MASK PATTERN GENERATOR Work Phone: [facility] 02-29-2024 14:10-0400 Body weight 73.94 kg Iram Johnson CAKE PRESS OPERATOR HELPER.PHOTO MASK PATTERN GENERATOR Work Phone: [facility] 02-29-2024 14:10-0400 Diastolic blood pressure 78 mm[Hg] Iram Johnson APRN.PHOTO MASK PATTERN GENERATOR Work Phone: [facility] 02-29-2024 14:10-0400 Heart rate 62 /min Iram Johnson CAKE PRESS OPERATOR HELPER.PHOTO MASK PATTERN GENERATOR Work Phone: [facility] 02-29-2024 14:10-0400 Systolic blood pressure 140 mm[Hg] Iram Johnson CAKE PRESS OPERATOR HELPER.PHOTO MASK PATTERN GENERATOR Work Phone: [facility] 01-22-2024 10:57-0400 Body height 168.9 cm Ronaldo Pleitez MD Work Phone: [facility] 01-22-2024 10:57-0400 Body weight 75.43 kg Ronaldo Pleitez MD Work Phone: [facility] 01-22-2024 10:57-0400 Diastolic blood pressure 64 mm[Hg] Ronaldo Pleitez MD Work Phone: [facility] 01-22-2024 10:57-0400 Heart rate 68 /min Ronaldo Pleitez MD Work Phone: [facility] 01-22-2024 10:57-0400 Respiratory rate 18 /min Ronaldo Pleitez MD Work Phone: [facility] 01-22-2024 10:57-0400 Systolic blood pressure 118 mm[Hg] Ronaldo Pleitez MD Work Phone: [facility] 12-24-2023 11:12-0500 Body temperature 98.2 [degF] Baljinder Masci DO Work Phone: [facility] 12-24-2023 11:12-0500 Body weight 73.71 kg Baljinder Masci DO Work Phone: [facility] 12-24-2023 11:12-0500 Diastolic blood pressure 84 mm[Hg] Baljinder Masci DO Work Phone: [facility] 12-24-2023 11:12-0500 Heart rate 65 /min Baljinder Masci DO Work Phone: [facility] 12-24-2023 11:12-0500 SaO2% (BldA) [Mass fraction] 97 % Baljinder Masci DO Work Phone: [facility] 12-24-2023 11:12-0500 Systolic blood pressure 125 mm[Hg] Baljinder Masci DO Work Phone: [facility] 12-23-2023 11:07-0500 Body temperature 97.2 [degF] Ronaldo Pleitez MD Work Phone: [facility] 12-23-2023 11:07-0500 Body weight 73.94 kg Ronaldo Pleitez MD Work Phone: [facility] 12-23-2023 11:07-0500 Diastolic blood pressure 58 mm[Hg] Ronaldo Pleitez MD Work Phone: [facility] 12-23-2023 11:07-0500 Heart rate 60 /min Ronaldo Pleitez MD Work Phone: [facility] 12-23-2023 11:07-0500 Respiratory rate 20 /min Ronaldo Pleitez MD Work Phone: [facility] 12-23-2023 11:07-0500 Systolic blood pressure 100 mm[Hg] Ronaldo Pleitez MD Work Phone: [facility] 09-30-2023 09:57-0500 Body temperature 98.49 [degF] Baljinder Masci DO Work Phone: [facility] 09-30-2023 09:57-0500 Body weight 73.03 kg Baljinder Masci DO Work Phone: [facility] 09-30-2023 09:57-0500 Diastolic blood pressure 56 mm[Hg] Baljinder Masci DO Work Phone: [facility] 09-30-2023 09:57-0500 Heart rate 59 /min Baljinder Masci DO Work Phone: [facility] 09-30-2023 09:57-0500 Respiratory rate 16 /min Blajinder Masci DO Work Phone: [facility] 09-30-2023 09:57-0500 SaO2% (BldA) [Mass fraction] 99 % Baljinder Masci DO Work Phone: [facility] 09-30-2023 09:57-0500 Systolic blood pressure 107 mm[Hg] Baljinder Galloway DO Work Phone: [facility] 07-24-2023 10:06-0400 Body weight 73.48 kg Arabella Older CAKE PRESS OPERATOR HELPER.PHOTO MASK PATTERN GENERATOR Work Phone: [facility] 07-24-2023 10:06-0400 Diastolic blood pressure 72 mm[Hg] Arabella Older CAKE PRESS OPERATOR HELPER.PHOTO MASK PATTERN GENERATOR Work Phone: [facility] 07-24-2023 10:06-0400 Heart rate 58 /min Arabella Older CAKE PRESS OPERATOR HELPER.PHOTO MASK PATTERN GENERATOR Work Phone: [facility] 07-24-2023 10:06-0400 Respiratory rate 16 /min Arabella Older CAKE PRESS OPERATOR HELPER.PHOTO MASK PATTERN GENERATOR Work Phone: [facility] 07-24-2023 10:06-0400 SaO2% (BldA) [Mass fraction] 97 % Arabella Older CAKE PRESS OPERATOR HELPER.PHOTO MASK PATTERN GENERATOR Work Phone: [facility] 07-24-2023 10:06-0400 Systolic blood pressure 124 mm[Hg] Arabella Older CAKE PRESS OPERATOR HELPER.PHOTO MASK PATTERN GENERATOR Work Phone: [facility] 07-23-2023 10:22-0400 Body height 170.2 cm Iram Johnson CAKE PRESS OPERATOR HELPER.PHOTO MASK PATTERN GENERATOR Work Phone: [facility] 07-23-2023 10:22-0400 Body weight 73.94 kg Iram Johnson CAKE PRESS OPERATOR HELPER.PHOTO MASK PATTERN GENERATOR Work Phone: [facility] 07-23-2023 10:22-0400 Diastolic blood pressure 60 mm[Hg] Iram Johnson CAKE PRESS OPERATOR HELPER.PHOTO MASK PATTERN GENERATOR Work Phone: [facility] 07-23-2023 10:22-0400 Heart rate 69 /min Iram Johnson CAKE PRESS OPERATOR HELPER.PHOTO MASK PATTERN GENERATOR Work Phone: [facility] 07-23-2023 10:22-0400 Systolic blood pressure 110 mm[Hg] Iram Johnson CAKE PRESS OPERATOR HELPER.PHOTO MASK PATTERN GENERATOR Work Phone: [facility] 05-22-2023 12:20-0400 Body temperature 97.4 [degF] Dr. Pedro Diaz Work Phone: [facility] 05-22-2023 12:20-0400 Diastolic blood pressure 49 mm[Hg] Dr. Pedro Diaz Work Phone: 9(435)[phone] [place] [address] 05-22-2023 12:20-0400 Heart rate 59 /min Dr. Pedro Diaz Work Phone: 8(248)507-984265 [place] [address] 05-22-2023 12:20-0400 Respiratory rate 16 /min Dr. Pedro Diaz Work Phone: 7(479)518-368765 [place] [address] 05-22-2023 12:20-0400 SaO2% (BldA) [Mass fraction] 93 % Dr. Pedro Diaz Work Phone: 4(194)557-074665 [place] [address] 05-22-2023 12:20-0400 Systolic blood pressure 127 mm[Hg] Dr. Pedro Diaz Work Phone: 1(133)[phone] [place] [address] 05-22-2023 09:15-0400 Body height 170.[address] Pedro Diaz Work Phone: [facility] 05-18-2023 16:30-0400 Body temperature 97.9 [degF] Dr. Pedro Diaz Work Phone: 6(938)984-855165 [place] [address] 05-18-2023 16:30-0400 Diastolic blood pressure 74 mm[Hg] Dr. Pedro Diaz Work Phone: [facility] 05-18-2023 16:30-0400 Heart rate 54 /min Dr. Pedro Diaz Work Phone: [facility] 05-18-2023 16:30-0400 Respiratory rate 18 /min Dr. Pedro Diaz Work Phone: [facility] 05-18-2023 16:30-0400 SaO2% (BldA) [Mass fraction] 96 % Dr. Pedro Diaz Work Phone: [facility] 05-18-2023 16:30-0400 Systolic blood pressure 125 mm[Hg] Dr. Pedro Diaz Work Phone: [facility] 05-18-2023 09:43-0400 Diastolic blood pressure 81 mm[Hg] Dr. Pedro Diaz Work Phone: [facility] 05-18-2023 09:43-0400 Heart rate 52 /min Dr. Pedro Diaz Work Phone: [facility] 05-18-2023 09:43-0400 Systolic blood pressure 130 mm[Hg] Dr. Pedro Diaz Work Phone: [facility] 05-18-2023 08:45-0400 Body temperature 97.8 [degF] Dr. Pedro Diaz Work Phone: [facility] 05-18-2023 08:45-0400 Respiratory rate 16 /min Dr. Pedro Diaz Work Phone: [facility] 05-18-2023 08:45-0400 SaO2% (BldA) [Mass fraction] 95 % Dr. Pedro Diaz Work Phone: [facility] 05-18-2023 08:00-0400 Body mass index (BMI) [Ratio] 28.5 kg/m2 Dr. Pedro Diaz Work Phone: [facility] 05-18-2023 08:00-0400 Body weight 82.[address] Pedro Diaz Work Phone: [facility] 05-17-2023 03:59-0400 Body mass index (BMI) [Ratio] 28.6 kg/m2 Dr. Pedro Diaz Work Phone: [facility] 05-17-2023 03:59-0400 Body weight [address] Pedro Diaz Work Phone: [facility] 05-16-2023 12:42-0400 Inhaled oxygen flow rate 2 L/min Dr. Pedro Diaz Work Phone: [facility] [facility] 05-14-2023 18:22-0400 Body height 170.[address] Pedro Diaz Work Phone: [facility] 05-14-2023 16:25-0400 Body temperature 99.2 [degF] Dr. Ned Dinh Work Phone: [facility] 05-14-2023 16:25-0400 Diastolic blood pressure 59 mm[Hg] Dr. Ned Dinh Work Phone: [facility] 05-14-2023 16:25-0400 Heart rate 60 /min Dr. Ned Dinh Work Phone: [facility] 05-14-2023 16:25-0400 Inhaled oxygen flow rate 2 L/min Dr. Ned Dinh Work Phone: [facility] 05-14-2023 16:25-0400 Respiratory rate 16 /min Dr. Ned Dinh Work Phone: [facility] 05-14-2023 16:25-0400 SaO2% (BldA) [Mass fraction] 98 % Dr. Ned Dinh Work Phone: [facility] 05-14-2023 16:25-0400 Systolic blood pressure 112 mm[Hg] Dr. Ned Dinh Work Phone: [facility] 05-14-2023 12:19-0400 Body mass index (BMI) [Ratio] 28 kg/m2 Dr. Ned Dinh Work Phone: [facility] 05-14-2023 12:19-0400 Body weight 81.[address] Ned Dinh Work Phone: [facility] 05-14-2023 12:15-0400 Body height 170.[address] Ned Dinh Work Phone: [facility] 05-13-2023 14:04-0400 Body temperature 97.59 [degF] Treatment Wstr Work Phone: [facility] 05-13-2023 14:04-0400 Diastolic blood pressure 64 mm[Hg] Treatment Wstr Work Phone: [facility] 05-13-2023 14:04-0400 Heart rate 62 /min Treatment Wstr Work Phone: [facility] 05-13-2023 14:04-0400 Respiratory rate 16 /min Treatment Wstr Work Phone: [facility] 05-13-2023 14:04-0400 SaO2% (BldA) [Mass fraction] 97 % Treatment Wstr Work Phone: [facility] 05-13-2023 14:04-0400 Systolic blood pressure 140 mm[Hg] Treatment Wstr Work Phone: [facility] 05-11-2023 16:14-0400 Body height 170.2 cm Shorty Faith MD Work Phone: [facility] 05-11-2023 16:14-0400 Body temperature 97.59 [degF] Shorty Faith MD Work Phone: [facility] 05-11-2023 16:14-0400 Body weight 83.92 kg Shorty Faith MD Work Phone: [facility] 05-11-2023 16:14-0400 Diastolic blood pressure 56 mm[Hg] Shorty Faith MD Work Phone: [facility] 05-11-2023 16:14-0400 Heart rate 60 /min Shorty Faith MD Work Phone: [facility] 05-11-2023 16:14-0400 SaO2% (BldA) [Mass fraction] 98 % Shorty Faith MD Work Phone: [facility] 05-11-2023 16:14-0400 Systolic blood pressure 110 mm[Hg] Shorty Faith MD Work Phone: [facility] 05-11-2023 15:12-0400 Body temperature 98.1 [degF] Treatment Wstr Work Phone: [facility] 05-11-2023 15:12-0400 Diastolic blood pressure 42 mm[Hg] Treatment Wstr Work Phone: [facility] 05-11-2023 15:12-0400 Heart rate 60 /min Treatment Wstr Work Phone: [facility] 05-11-2023 15:12-0400 Respiratory rate 16 /min Treatment Wstr Work Phone: [facility] 05-11-2023 15:12-0400 SaO2% (BldA) [Mass fraction] 95 % Treatment Wstr Work Phone: [facility] 05-11-2023 15:12-0400 Systolic blood pressure 116 mm[Hg] Treatment Wstr Work Phone: [facility] 05-08-2023 14:00-0400 Body temperature 97.2 [degF] Treatment Wstr Work Phone: [facility] 05-08-2023 14:00-0400 Diastolic blood pressure 74 mm[Hg] Treatment Wstr Work Phone: [facility] 05-08-2023 14:00-0400 Heart rate 64 /min Treatment Wstr Work Phone: [facility] 05-08-2023 14:00-0400 Respiratory rate 16 /min Treatment Wstr Work Phone: [facility] 05-08-2023 14:00-0400 SaO2% (BldA) [Mass fraction] 97 % Treatment Wstr Work Phone: [facility] 05-08-2023 14:00-0400 Systolic blood pressure 151 mm[Hg] Treatment Wstr Work Phone: [facility] 05-07-2023 14:03-0400 Body temperature 97.7 [degF] Treatment Wstr Work Phone: [facility] 05-07-2023 14:03-0400 Diastolic blood pressure 59 mm[Hg] Treatment Wstr Work Phone: [facility] 05-07-2023 14:03-0400 Heart rate 60 /min Treatment Wstr Work Phone: [facility] 05-07-2023 14:03-0400 SaO2% (BldA) [Mass fraction] 96 % Treatment Wstr Work Phone: [facility] 05-07-2023 14:03-0400 Systolic blood pressure 126 mm[Hg] Treatment Wstr Work Phone: [facility] 05-05-2023 12:56-0400 Body temperature 97.59 [degF] Treatment Wstr Work Phone: [facility] 05-05-2023 12:56-0400 Body weight 84.14 kg Treatment Wstr Work Phone: [facility] 05-05-2023 12:56-0400 Diastolic blood pressure 54 mm[Hg] Treatment Wstr Work Phone: [facility] 05-05-2023 12:56-0400 Heart rate 60 /min Treatment Wstr Work Phone: [facility] 05-05-2023 12:56-0400 SaO2% (BldA) [Mass fraction] 93 % Treatment Wstr Work Phone: [facility] 05-05-2023 12:56-0400 Systolic blood pressure 120 mm[Hg] Treatment Wstr Work Phone: [facility] 05-04-2023 14:04-0400 Body temperature 98.4 [degF] Treatment Wstr Work Phone: [facility] 05-04-2023 14:04-0400 Diastolic blood pressure 58 mm[Hg] Treatment Wstr Work Phone: [facility] 05-04-2023 14:04-0400 Heart rate 56 /min Treatment Wstr Work Phone: [facility] 05-04-2023 14:04-0400 Respiratory rate 16 /min Treatment Wstr Work Phone: [facility] 05-04-2023 14:04-0400 Systolic blood pressure 147 mm[Hg] Treatment Wstr Work Phone: [facility] 05-01-2023 12:41-0400 Body temperature 97.39 [degF] David Cervantes APRN.PHOTO MASK PATTERN GENERATOR Work Phone: [facility] 05-01-2023 12:41-0400 Body weight 83.23 kg David Cervantes CAKE PRESS OPERATOR HELPER.PHOTO MASK PATTERN GENERATOR Work Phone: [facility] 05-01-2023 12:41-0400 Diastolic blood pressure 52 mm[Hg] David Cervantes CAKE PRESS OPERATOR HELPER.PHOTO MASK PATTERN GENERATOR Work Phone: [facility] 05-01-2023 12:41-0400 Heart rate 61 /min Danforth Cervantes CAKE PRESS OPERATOR HELPER.PHOTO MASK PATTERN GENERATOR Work Phone: [facility] 05-01-2023 12:41-0400 SaO2% (BldA) [Mass fraction] 97 % Danforth Cervantes CAKE PRESS OPERATOR HELPER.PHOTO MASK PATTERN GENERATOR Work Phone: [facility] 05-01-2023 12:41-0400 Systolic blood pressure 111 mm[Hg] Danforth Cervantes CAKE PRESS OPERATOR HELPER.PHOTO MASK PATTERN GENERATOR Work Phone: [facility] 04-20-2023 13:30-0400 Body height 170.2 cm Israel Tirmonia DO Work Phone: [facility] 04-20-2023 13:30-0400 Body temperature 97 [degF] Israel Tirmonia DO Work Phone: [facility] 04-20-2023 13:30-0400 Body weight 82.01 kg Israel Tirmonia DO Work Phone: [facility] 04-20-2023 13:30-0400 Diastolic blood pressure 60 mm[Hg] Israel Tirmonia DO Work Phone: [facility] 04-20-2023 13:30-0400 Heart rate 61 /min Israel Tirmonia DO Work Phone: [facility] 04-20-2023 13:30-0400 SaO2% (BldA) [Mass fraction] 97 % Israel Tirmonia DO Work Phone: [facility] 04-20-2023 13:30-0400 Systolic blood pressure 102 mm[Hg] Israel Tirmonia DO Work Phone: [facility] 04-15-2023 14:00-0400 Body temperature 97.11 [degF] Treatment Wstr Work Phone: [facility] 04-15-2023 14:00-0400 Diastolic blood pressure 62 mm[Hg] Treatment Wstr Work Phone: [facility] 04-15-2023 14:00-0400 Heart rate 58 /min Treatment Wstr Work Phone: [facility] 04-15-2023 14:00-0400 Respiratory rate 18 /min Treatment Wstr Work Phone: [facility] 04-15-2023 14:00-0400 SaO2% (BldA) [Mass fraction] 95 % Treatment Wstr Work Phone: [facility] 04-15-2023 14:00-0400 Systolic blood pressure 135 mm[Hg] Treatment Wstr Work Phone: [facility] 04-14-2023 09:00-0400 Body temperature 97.59 [degF] Treatment Wstr Work Phone: [facility] 04-14-2023 09:00-0400 Diastolic blood pressure 69 mm[Hg] Treatment Wstr Work Phone: [facility] 04-14-2023 09:00-0400 Heart rate 77 /min Treatment Wstr Work Phone: [facility] 04-14-2023 09:00-0400 Respiratory rate 18 /min Treatment Wstr Work Phone: [facility] 04-14-2023 09:00-0400 SaO2% (BldA) [Mass fraction] 95 % Treatment Wstr Work Phone: [facility] 04-14-2023 09:00-0400 Systolic blood pressure 139 mm[Hg] Treatment Wstr Work Phone: [facility] 04-13-2023 15:42-0400 Body mass index (BMI) [Ratio] 27.6 kg/m2 Dr. Ned Dinh Work Phone: [facility] 04-13-2023 15:42-0400 Body weight 79.[address] Ned Dinh Work Phone: [facility] 04-13-2023 15:42-0400 Diastolic blood pressure 58 mm[Hg] Dr. Ned Dinh Work Phone: [facility] 04-13-2023 15:42-0400 Heart rate 59 /min Dr. Ned Dinh Work Phone: [facility] 04-13-2023 15:42-0400 Respiratory rate 16 /min Dr. Ned Dinh Work Phone: [facility] 04-13-2023 15:42-0400 SaO2% (BldA) [Mass fraction] 93 % Dr. Ned Dinh Work Phone: [facility] 04-13-2023 15:42-0400 Systolic blood pressure 108 mm[Hg] Dr. Ned Dinh Work Phone: [facility] 04-13-2023 10:24-0400 SaO2% (BldA) [Mass fraction] 94 % Treatment Wstr Work Phone: [facility] 04-13-2023 10:20-0400 Body temperature 97.7 [degF] Treatment Wstr Work Phone: [facility] 04-13-2023 10:20-0400 Diastolic blood pressure 61 mm[Hg] Treatment Wstr Work Phone: [facility] 04-13-2023 10:20-0400 Heart rate 63 /min Treatment Wstr Work Phone: [facility] 04-13-2023 10:20-0400 Systolic blood pressure 135 mm[Hg] Treatment Wstr Work Phone: [facility] 04-10-2023 10:15-0400 Body temperature 97.59 [degF] Treatment Wstr Work Phone: [facility] 04-10-2023 10:15-0400 Diastolic blood pressure 66 mm[Hg] Treatment Wstr Work Phone: [facility] 04-10-2023 10:15-0400 Heart rate 60 /min Treatment Wstr Work Phone: [facility] 04-10-2023 10:15-0400 Respiratory rate 16 /min Treatment Wstr Work Phone: [facility] 04-10-2023 10:15-0400 SaO2% (BldA) [Mass fraction] 95 % Treatment Wstr Work Phone: [facility] 04-10-2023 10:15-0400 Systolic blood pressure 131 mm[Hg] Treatment Wstr Work Phone: [facility] 04-09-2023 07:00-0400 Body temperature 97 [degF] Treatment Wstr Work Phone: [facility] 04-09-2023 07:00-0400 Body weight 81.87 kg Treatment Wstr Work Phone: [facility] 04-09-2023 07:00-0400 Diastolic blood pressure 64 mm[Hg] Treatment Wstr Work Phone: [facility] 04-09-2023 07:00-0400 Heart rate 59 /min Treatment Wstr Work Phone: [facility] 04-09-2023 07:00-0400 SaO2% (BldA) [Mass fraction] 96 % Treatment Wstr Work Phone: [facility] 04-09-2023 07:00-0400 Systolic blood pressure 136 mm[Hg] Treatment Wstr Work Phone: [facility] 04-08-2023 09:36-0400 Body temperature 97.81 [degF] Treatment Wstr Work Phone: [facility] 04-08-2023 09:36-0400 Body weight 80.97 kg Treatment Wstr Work Phone: [facility] 04-08-2023 09:36-0400 Diastolic blood pressure 65 mm[Hg] Treatment Wstr Work Phone: [facility] 04-08-2023 09:36-0400 Heart rate 59 /min Treatment Wstr Work Phone: [facility] 04-08-2023 09:36-0400 Respiratory rate 18 /min Treatment Wstr Work Phone: [facility] 04-08-2023 09:36-0400 SaO2% (BldA) [Mass fraction] 97 % Treatment Wstr Work Phone: [facility] 04-08-2023 09:36-0400 Systolic blood pressure 123 mm[Hg] Treatment Wstr Work Phone: [facility] 03-25-2023 11:51-0400 Body weight 74.84 kg Israel Tirmonia DO Work Phone: [facility] 03-25-2023 11:51-0400 Diastolic blood pressure 64 mm[Hg] Israel Tirmonia DO Work Phone: [facility] 03-25-2023 11:51-0400 Heart rate 76 /min Israel Tirmonia DO Work Phone: [facility] 03-25-2023 11:51-0400 Respiratory rate 16 /min Israel Tirmonia DO Work Phone: [facility] 03-25-2023 11:51-0400 Systolic blood pressure 112 mm[Hg] Israel Tirmonia DO Work Phone: [facility] 03-17-2023 08:38-0400 Body temperature 97.5 [degF] Chair Green Work Phone: [facility] 03-17-2023 08:38-0400 Diastolic blood pressure 81 mm[Hg] Chair Green Work Phone: [facility] 03-17-2023 08:38-0400 Heart rate 80 /min Chair Green Work Phone: [facility] 03-17-2023 08:38-0400 Systolic blood pressure 121 mm[Hg] Chair Green Work Phone: [facility] 03-16-2023 08:29-0400 Body temperature 98.6 [degF] Chair Green Work Phone: [facility] 03-16-2023 08:29-0400 Body weight 81.01 kg Chair Green Work Phone: [facility] 03-16-2023 08:29-0400 Diastolic blood pressure 55 mm[Hg] Chair Green Work Phone: [facility] 03-16-2023 08:29-0400 Heart rate 78 /min Chair Green Work Phone: [facility] 03-16-2023 08:29-0400 Respiratory rate 18 /min Chair Green Work Phone: [facility] 03-16-2023 08:29-0400 Systolic blood pressure 110 mm[Hg] Chair Green Work Phone: [facility] 03-13-2023 08:29-0400 Body temperature 97.7 [degF] Chair Green Work Phone: [facility] 03-13-2023 08:29-0400 Diastolic blood pressure 73 mm[Hg] Chair Green Work Phone: [facility] 03-13-2023 08:29-0400 Heart rate 92 /min Chair Green Work Phone: [facility] 03-13-2023 08:29-0400 Respiratory rate 18 /min Chair Green Work Phone: [facility] 03-13-2023 08:29-0400 Systolic blood pressure 113 mm[Hg] Chair Green Work Phone: [facility] 03-12-2023 14:32-0400 Body height 170.2 cm Israel Tirmonia DO Work Phone: [facility] 03-12-2023 14:32-0400 Body weight 78.93 kg Israel Tirmonia DO Work Phone: [facility] 03-12-2023 14:32-0400 Diastolic blood pressure 68 mm[Hg] Israel Tirmonia DO Work Phone: [facility] 03-12-2023 14:32-0400 Heart rate 90 /min Israel Tirmonia DO Work Phone: [facility] 03-12-2023 14:32-0400 Respiratory rate 16 /min Israel Pruitt DO Work Phone: [facility] 03-12-2023 14:32-0400 Systolic blood pressure 120 mm[Hg] Israel Pruitt DO Work Phone: [facility] 03-12-2023 08:25-0400 Body temperature 97.9 [degF] Chair Green Work Phone: [facility] 03-12-2023 08:25-0400 Diastolic blood pressure 55 mm[Hg] Chair Green Work Phone: [facility] 03-12-2023 08:25-0400 Heart rate 112 /min Chair Green Work Phone: [facility] 03-12-2023 08:25-0400 Respiratory rate 18 /min Chair Green Work Phone: [facility] 03-12-2023 08:25-0400 Systolic blood pressure 103 mm[Hg] Chair Green Work Phone: [facility] 03-11-2023 08:24-0400 Body temperature 97.7 [degF] Chair Green Work Phone: [facility] 03-11-2023 08:24-0400 Diastolic blood pressure 68 mm[Hg] Chair Green Work Phone: [facility] 03-11-2023 08:24-0400 Heart rate 96 /min Chair Green Work Phone: [facility] 03-11-2023 08:24-0400 Systolic blood pressure 110 mm[Hg] Chair Green Work Phone: [facility] 03-09-2023 08:26-0400 Body temperature 97.7 [degF] Chair Green Work Phone: [facility] 03-09-2023 08:26-0400 Body weight 82.46 kg Chair Green Work Phone: [facility] 03-09-2023 08:26-0400 Diastolic blood pressure 48 mm[Hg] Chair Green Work Phone: [facility] 03-09-2023 08:26-0400 Heart rate 66 /min Chair Green Work Phone: [facility] 03-09-2023 08:26-0400 Respiratory rate 18 /min Chair Green Work Phone: [facility] 03-09-2023 08:26-0400 Systolic blood pressure 100 mm[Hg] Chair Green Work Phone: [facility] 02-17-2023 08:36-0400 Body temperature 98.2 [degF] Chair Green Work Phone: [facility] 02-17-2023 08:36-0400 Diastolic blood pressure 57 mm[Hg] Chair Green Work Phone: [facility] 02-17-2023 08:36-0400 Heart rate 74 /min Chair Green Work Phone: [facility] 02-17-2023 08:36-0400 Systolic blood pressure 105 mm[Hg] Chair Green Work Phone: [facility] 02-16-2023 08:23-0400 Body temperature 97.7 [degF] Chair Green Work Phone: [facility] 02-16-2023 08:23-0400 Body weight 78.56 kg Chair Green Work Phone: [facility] 02-16-2023 08:23-0400 Diastolic blood pressure 82 mm[Hg] Chair Green Work Phone: [facility] 02-16-2023 08:23-0400 Heart rate 53 /min Chair Green Work Phone: [facility] 02-16-2023 08:23-0400 SaO2% (BldA) [Mass fraction] 100 % Chair Green Work Phone: [facility] 02-16-2023 08:23-0400 Systolic blood pressure 128 mm[Hg] Chair Green Work Phone: [facility] 02-13-2023 08:23-0400 Body temperature 97.7 [degF] Chair Green Work Phone: [facility] 02-13-2023 08:23-0400 Diastolic blood pressure 71 mm[Hg] Chair Green Work Phone: [facility] 02-13-2023 08:23-0400 Heart rate 72 /min Chair Green Work Phone: [facility] 02-13-2023 08:23-0400 Respiratory rate 18 /min Chair Green Work Phone: [facility] 02-13-2023 08:23-0400 Systolic blood pressure 127 mm[Hg] Chair Green Work Phone: [facility] 02-12-2023 08:52-0400 Body temperature 97.9 [degF] Chair Green Work Phone: [facility] 02-12-2023 08:52-0400 Diastolic blood pressure 72 mm[Hg] Chair Green Work Phone: [facility] 02-12-2023 08:52-0400 Heart rate 18 /min Chair Green Work Phone: [facility] 02-12-2023 08:52-0400 Systolic blood pressure 140 mm[Hg] Chair Green Work Phone: [facility] 02-11-2023 08:30-0400 Body temperature 97.9 [degF] Chair Green Work Phone: [facility] 02-11-2023 08:30-0400 Diastolic blood pressure 54 mm[Hg] Chair Green Work Phone: [facility] 02-11-2023 08:30-0400 Heart rate 53 /min Chair Green Work Phone: [facility] 02-11-2023 08:30-0400 Respiratory rate 16 /min Chair Green Work Phone: [facility] 02-11-2023 08:30-0400 Systolic blood pressure 112 mm[Hg] Chair Green Work Phone: [facility] 02-10-2023 08:32-0400 Body temperature 98.29 [degF] Chair Green Work Phone: [facility] 02-10-2023 08:32-0400 Diastolic blood pressure 63 mm[Hg] Chair Green Work Phone: [facility] 02-10-2023 08:32-0400 Heart rate 80 /min Chair Green Work Phone: [facility] 02-10-2023 08:32-0400 Respiratory rate 16 /min Chair Green Work Phone: [facility] 02-10-2023 08:32-0400 Systolic blood pressure 96 mm[Hg] Chair Green Work Phone: [facility] 02-09-2023 08:26-0400 Body temperature 97.9 [degF] Bed Green Work Phone: [facility] 02-09-2023 08:26-0400 Body weight 81.74 kg Bed Green Work Phone: [facility] 02-09-2023 08:26-0400 Diastolic blood pressure 82 mm[Hg] Bed Green Work Phone: [facility] 02-09-2023 08:26-0400 Heart rate 83 /min Bed Green Work Phone: [facility] 02-09-2023 08:26-0400 Respiratory rate 18 /min Bed Green Work Phone: [facility] 02-09-2023 08:26-0400 Systolic blood pressure 127 mm[Hg] Bed Green Work Phone: [facility] 02-04-2023 11:23-0400 Body temperature 97 [degF] Randa Sindel DO Work Phone: [facility] 02-04-2023 11:23-0400 Body weight 78.56 kg Randa Sindel DO Work Phone: [facility] 02-04-2023 11:23-0400 Diastolic blood pressure 57 mm[Hg] Randa Sindel DO Work Phone: [facility] 02-04-2023 11:23-0400 Heart rate 80 /min Randa Sindel DO Work Phone: [facility] 02-04-2023 11:23-0400 SaO2% (BldA) [Mass fraction] 98 % Randa Sindel DO Work Phone: [facility] 02-04-2023 11:23-0400 Systolic blood pressure 131 mm[Hg] Randa Sindel DO Work Phone: [facility] 01-19-2023 08:32-0400 Body temperature 98.6 [degF] Chair Green Work Phone: [facility] 01-19-2023 08:32-0400 Body weight 80.02 kg Chair Green Work Phone: [facility] 01-19-2023 08:32-0400 Diastolic blood pressure 73 mm[Hg] Chair Green Work Phone: [facility] 01-19-2023 08:32-0400 Heart rate 80 /min Chair Green Work Phone: [facility] 01-19-2023 08:32-0400 Respiratory rate 18 /min Chair Green Work Phone: [facility] 01-19-2023 08:32-0400 Systolic blood pressure 124 mm[Hg] Chair Green Work Phone: [facility] 01-16-2023 08:30-0500 Body temperature 97.9 [degF] Chair Green Work Phone: [facility] 01-16-2023 08:30-0500 Diastolic blood pressure 47 mm[Hg] Chair Green Work Phone: [facility] 01-16-2023 08:30-0500 Heart rate 80 /min Chair Green Work Phone: [facility] 01-16-2023 08:30-0500 Respiratory rate 16 /min Chair Green Work Phone: [facility] 01-16-2023 08:30-0500 Systolic blood pressure 120 mm[Hg] Chair Green Work Phone: [facility] 01-15-2023 08:33-0500 Body temperature 98.1 [degF] Chair Green Work Phone: [facility] 01-15-2023 08:33-0500 Diastolic blood pressure 44 mm[Hg] Chair Green Work Phone: [facility] 01-15-2023 08:33-0500 Heart rate 96 /min Chair Green Work Phone: [facility] 01-15-2023 08:33-0500 Respiratory rate 16 /min Chair Green Work Phone: [facility] 01-15-2023 08:33-0500 Systolic blood pressure 105 mm[Hg] Chair Green Work Phone: [facility] 01-14-2023 08:34-0500 Body temperature 98.2 [degF] Chair Green Work Phone: [facility] 01-14-2023 08:34-0500 Body weight 81.2 kg Chair Green Work Phone: [facility] 01-14-2023 08:34-0500 Diastolic blood pressure 58 mm[Hg] Chair Green Work Phone: [facility] 01-14-2023 08:34-0500 Heart rate 85 /min Chair Green Work Phone: [facility] 01-14-2023 08:34-0500 Respiratory rate 20 /min Chair Green Work Phone: [facility] 01-14-2023 08:34-0500 Systolic blood pressure 99 mm[Hg] Chair Green Work Phone: [facility] 01-13-2023 11:05-0500 Body height 167.6 cm Iram Johnson CAKE PRESS OPERATOR HELPER.PHOTO MASK PATTERN GENERATOR Work Phone: [facility] 01-13-2023 11:05-0500 Body weight 81.19 kg Iram Johnson CAKE PRESS OPERATOR HELPER.PHOTO MASK PATTERN GENERATOR Work Phone: [facility] 01-13-2023 11:05-0500 Diastolic blood pressure 72 mm[Hg] Iram Johnson CAKE PRESS OPERATOR HELPER.PHOTO MASK PATTERN GENERATOR Work Phone: [facility] [facility] 01-13-2023 11:05-0500 Heart rate 64 /min Iram Johnson CAKE PRESS OPERATOR HELPER.PHOTO MASK PATTERN GENERATOR Work Phone: [facility] 01-13-2023 11:05-0500 Systolic blood pressure 110 mm[Hg] Iram Johnson CAKE PRESS OPERATOR HELPER.PHOTO MASK PATTERN GENERATOR Work Phone: [facility] 01-13-2023 08:37-0500 Body temperature 97.9 [degF] Chair Green Work Phone: [facility] 01-13-2023 08:37-0500 Diastolic blood pressure 72 mm[Hg] Chair Green Work Phone: [facility] 01-13-2023 08:37-0500 Heart rate 99 /min Chair Green Work Phone: [facility] 01-13-2023 08:37-0500 Respiratory rate 20 /min Chair Green Work Phone: [facility] 01-13-2023 08:37-0500 Systolic blood pressure 120 mm[Hg] Chair Green Work Phone: [facility] 01-13-2023 08:33-0500 Body weight 81.33 kg Chair Green Work Phone: [facility] 01-12-2023 08:34-0500 Body temperature 98.1 [degF] Bed Green Work Phone: [facility] 01-12-2023 08:34-0500 Body weight 81.28 kg Bed Green Work Phone: [facility] 01-12-2023 08:34-0500 Diastolic blood pressure 69 mm[Hg] Bed Green Work Phone: [facility] 01-12-2023 08:34-0500 Heart rate 89 /min Bed Green Work Phone: [facility] 01-12-2023 08:34-0500 Respiratory rate 16 /min Bed Green Work Phone: [facility] 01-12-2023 08:34-0500 Systolic blood pressure 123 mm[Hg] Bed Green Work Phone: [facility] 12-22-2022 15:00-0500 Body temperature 97.5 [degF] Chair Green Work Phone: [facility] 12-22-2022 15:00-0500 Body weight 77.47 kg Chair Green Work Phone: [facility] 12-22-2022 15:00-0500 Diastolic blood pressure 50 mm[Hg] Chair Green Work Phone: [facility] 12-22-2022 15:00-0500 Heart rate 85 /min Chair Green Work Phone: [facility] 12-22-2022 15:00-0500 Systolic blood pressure 103 mm[Hg] Chair Green Work Phone: [facility] 2022 15:22-0500 Body temperature 97.7 [degF] Chair Green Work Phone: [facility] 2022 15:22-0500 Diastolic blood pressure 65 mm[Hg] Chair Green Work Phone: [facility] 2022 15:22-0500 Heart rate 80 /min Chair Green Work Phone: [facility] 2022 15:22-0500 Respiratory rate 16 /min Chair Green Work Phone: [facility] 2022 15:22-0500 Systolic blood pressure 117 mm[Hg] Chair Green Work Phone: [facility] 12-15-2022 08:31-0500 Body temperature 97.7 [degF] Bed Green Work Phone: [facility] 12-15-2022 08:31-0500 Body weight 80.29 kg Bed Green Work Phone: [facility] 12-15-2022 08:31-0500 Diastolic blood pressure 66 mm[Hg] Bed Green Work Phone: [facility] 12-15-2022 08:31-0500 Heart rate 84 /min Bed Green Work Phone: [facility] 12-15-2022 08:31-0500 Respiratory rate 16 /min Bed Green Work Phone: [facility] 12-15-2022 08:31-0500 Systolic blood pressure 111 mm[Hg] Bed Green Work Phone: [facility] 12-11-2022 16:26-0500 Body height 170.2 cm Israel Tirmonia DO Work Phone: [facility] 12-11-2022 16:26-0500 Body temperature 97.9 [degF] Israel Tirmonia DO Work Phone: [facility] 12-11-2022 16:26-0500 Body weight 77.84 kg Israel Tirmonia DO Work Phone: [facility] 12-11-2022 16:26-0500 Diastolic blood pressure 70 mm[Hg] Israel Tirmonia DO Work Phone: [facility] 12-11-2022 16:26-0500 Heart rate 66 /min Israel Tirmonia DO Work Phone: [facility] 12-11-2022 16:26-0500 Respiratory rate 16 /min Israel Tirmonia DO Work Phone: [facility] 12-11-2022 16:26-0500 SaO2% (BldA) [Mass fraction] 98 % Israel Tirmonia DO Work Phone: [facility] 12-11-2022 16:26-0500 Systolic blood pressure 110 mm[Hg] Israel Tirmonia DO Work Phone: [facility] 12-05-2022 11:00-0500 Diastolic blood pressure 71 mm[Hg] Manjeet Butler MD Work Phone: [facility] 12-05-2022 11:00-0500 Heart rate 90 /min Manjeet Butler MD Work Phone: [facility] 12-05-2022 11:00-0500 Respiratory rate 15 /min Manjeet Butler MD Work Phone: [facility] 12-05-2022 11:00-0500 SaO2% (BldA) [Mass fraction] 96 % Manjeet Butler MD Work Phone: [facility] 12-05-2022 11:00-0500 Systolic blood pressure 118 mm[Hg] Manjeet Butler MD Work Phone: [facility] 12-04-2022 09:08-0500 Body height 170.2 cm Skye Mas CAKE PRESS OPERATOR HELPER.PHOTO MASK PATTERN GENERATOR Work Phone: [facility] 12-04-2022 09:08-0500 Body weight 77.11 kg Skye Mas CAKE PRESS OPERATOR HELPER.PHOTO MASK PATTERN GENERATOR Work Phone: [facility] 12-04-2022 09:08-0500 Diastolic blood pressure 72 mm[Hg] Skye Mas CAKE PRESS OPERATOR HELPER.PHOTO MASK PATTERN GENERATOR Work Phone: [facility] 12-04-2022 09:08-0500 Heart rate 82 /min Skye Mas CAKE PRESS OPERATOR HELPER.PHOTO MASK PATTERN GENERATOR Work Phone: [facility] 12-04-2022 09:08-0500 SaO2% (BldA) [Mass fraction] 96 % Skye Mas CAKE PRESS OPERATOR HELPER.PHOTO MASK PATTERN GENERATOR Work Phone: [facility] 12-04-2022 09:08-0500 Systolic blood pressure 116 mm[Hg] Skye Mas CAKE PRESS OPERATOR HELPER.PHOTO MASK PATTERN GENERATOR Work Phone: [facility] 11-26-2022 11:09-0500 Body temperature 97.3 [degF] Randa Sindel DO Work Phone: [facility] 11-26-2022 11:09-0500 Body weight 76.02 kg Randa Sindel DO Work Phone: [facility] 11-26-2022 11:09-0500 Diastolic blood pressure 57 mm[Hg] Randa Sindel DO Work Phone: [facility] 11-26-2022 11:09-0500 Heart rate 84 /min Randa Sindel DO Work Phone: [facility] 11-26-2022 11:09-0500 SaO2% (BldA) [Mass fraction] 96 % Randa Sindel DO Work Phone: [facility] 11-26-2022 11:09-0500 Systolic blood pressure 104 mm[Hg] Randa Sindel DO Work Phone: [facility] 11-05-2022 11:10-0500 Body height 170.2 cm Randa Sindel DO Work Phone: [facility] 11-05-2022 11:10-0500 Body temperature 97.3 [degF] Randa Sindel DO Work Phone: [facility] 11-05-2022 11:10-0500 Body weight 80.02 kg Randa Sindel DO Work Phone: [facility] 11-05-2022 11:10-0500 Diastolic blood pressure 53 mm[Hg] Randa Sindel DO Work Phone: [facility] 11-05-2022 11:10-0500 Heart rate 89 /min Randa Sindel DO Work Phone: [facility] 11-05-2022 11:10-0500 SaO2% (BldA) [Mass fraction] 92 % Randa Sindel DO Work Phone: [facility] 11-05-2022 11:10-0500 Systolic blood pressure 106 mm[Hg] Randa Sindel DO Work Phone: [facility] 10-24-2022 13:00-0500 Diastolic blood pressure 59 mm[Hg] Jesus Manuel White MD, MD Work Phone: [facility] 10-24-2022 13:00-0500 SaO2% (BldA) [Mass fraction] 100 % Jesus Manuel White MD, MD Work Phone: [facility] 10-24-2022 13:00-0500 Systolic blood pressure 89 mm[Hg] Jesus Manuel White MD, MD Work Phone: [facility] 10-24-2022 12:45-0500 Heart rate 75 /min Jesus Manuel White MD, MD Work Phone: [facility] 10-24-2022 12:40-0500 Respiratory rate 15 /min Jesus Manuel White MD, MD Work Phone: [facility] 10-24-2022 11:11-0500 Body temperature 97.2 [degF] Jesus Manuel White MD, MD Work Phone: [facility] 10-16-2022 14:00-0500 Body height 170.2 cm Tara Ángel CAKE PRESS OPERATOR HELPER.PHOTO MASK PATTERN GENERATOR Work Phone: [facility] 10-16-2022 14:00-0500 Body weight 76.57 kg Tara Hepzibah CAKE PRESS OPERATOR HELPER.PHOTO MASK PATTERN GENERATOR Work Phone: [facility] 10-16-2022 14:00-0500 Diastolic blood pressure 40 mm[Hg] Tara Ángel CAKE PRESS OPERATOR HELPER.PHOTO MASK PATTERN GENERATOR Work Phone: [facility] 10-16-2022 14:00-0500 Heart rate 64 /min Tara Ángel CAKE PRESS OPERATOR HELPER.PHOTO MASK PATTERN GENERATOR Work Phone: [facility] 10-16-2022 14:00-0500 Respiratory rate 18 /min Tara Ángel CAKE PRESS OPERATOR HELPER.PHOTO MASK PATTERN GENERATOR Work Phone: [facility] 10-16-2022 14:00-0500 SaO2% (BldA) [Mass fraction] 100 % Tara Ángel CAKE PRESS OPERATOR HELPER.PHOTO MASK PATTERN GENERATOR Work Phone: [facility] 10-16-2022 14:00-0500 Systolic blood pressure 120 mm[Hg] Tara Hepzibah CAKE PRESS OPERATOR HELPER.PHOTO MASK PATTERN GENERATOR Work Phone: [facility] 10-09-2022 10:43-0500 Body height 170.2 cm Randa Sindel DO Work Phone: [facility] 10-09-2022 10:43-0500 Body temperature 97.2 [degF] Randa Sindel DO Work Phone: [facility] 10-09-2022 10:43-0500 Body weight 75.48 kg Randa Sindel DO Work Phone: [facility] 10-09-2022 10:43-0500 Diastolic blood pressure 60 mm[Hg] Randa Sindel DO Work Phone: [facility] 10-09-2022 10:43-0500 Heart rate 92 /min Randa Sindel DO Work Phone: [facility] 10-09-2022 10:43-0500 SaO2% (BldA) [Mass fraction] 98 % Randa Sindel DO Work Phone: [facility] 10-09-2022 10:43-0500 Systolic blood pressure 110 mm[Hg] Randa Sindel DO Work Phone: [facility] 10-01-2022 11:44-0500 Body height 170.2 cm Device [place] Work Phone: [facility] 10-01-2022 11:44-0500 Body temperature 98.2 [degF] Device [place] Work Phone: [facility] 10-01-2022 11:44-0500 Body weight 74.84 kg Device [place] Work Phone: [facility] 10-01-2022 11:44-0500 Diastolic blood pressure 60 mm[Hg] Device [place] Work Phone: [facility] 10-01-2022 11:44-0500 Heart rate 83 /min Device [place] Work Phone: [facility] 10-01-2022 11:44-0500 Respiratory rate 20 /min Device [place] Work Phone: [facility] 10-01-2022 11:44-0500 SaO2% (BldA) [Mass fraction] 96 % Device [place] Work Phone: [facility] 10-01-2022 11:44-0500 Systolic blood pressure 112 mm[Hg] Device [place] Work Phone: [facility] 09-25-2022 11:18-0500 Body height 171.7 cm Israel Tirmonia DO Work Phone: [facility] 09-25-2022 11:18-0500 Body temperature 97.39 [degF] Israel Tirmonia DO Work Phone: [facility] 09-25-2022 11:18-0500 Body weight 78.2 kg Israel Tirmonia DO Work Phone: [facility] 09-25-2022 11:18-0500 Diastolic blood pressure 60 mm[Hg] Israel Tirmonia DO Work Phone: [facility] 09-25-2022 11:18-0500 Heart rate 73 /min Israel Tirmonia DO Work Phone: [facility] 09-25-2022 11:18-0500 SaO2% (BldA) [Mass fraction] 96 % Israel Tirmonia DO Work Phone: [facility] 09-25-2022 11:18-0500 Systolic blood pressure 114 mm[Hg] Israel Tirmonia DO Work Phone: [facility] 09-11-2022 15:45-0400 Body height 171.7 cm Israel Tirmonia DO Work Phone: [facility] 09-11-2022 15:45-0400 Body temperature 98.29 [degF] Israel Tirmonia DO Work Phone: [facility] 09-11-2022 15:45-0400 Body weight 78.56 kg Israel Tirmonia DO Work Phone: [facility] 09-11-2022 15:45-0400 Diastolic blood pressure 56 mm[Hg] Israel Jovannymonia DO Work Phone: [facility] 09-11-2022 15:45-0400 Heart rate 49 /min Israel Tirmonia DO Work Phone: [facility] 09-11-2022 15:45-0400 SaO2% (BldA) [Mass fraction] 97 % Israel Tirmonia DO Work Phone: [facility] 09-11-2022 15:45-0400 Systolic blood pressure 102 mm[Hg] Israel Tirmonia DO Work Phone: [facility] 07-24-2022 10:44-0400 Body height 171.7 cm Israel Pettymonia DO Work Phone: [facility] 07-24-2022 10:44-0400 Body temperature 97.5 [degF] Israel Pettymonia DO Work Phone: [facility] 07-24-2022 10:44-0400 Body weight 80.38 kg Israel Pettymonia DO Work Phone: [facility] 07-24-2022 10:44-0400 Diastolic blood pressure 60 mm[Hg] Israel Pettymonia DO Work Phone: [facility] 07-24-2022 10:44-0400 Heart rate 67 /min Israel Pettymonia DO Work Phone: [facility] 07-24-2022 10:44-0400 SaO2% (BldA) [Mass fraction] 97 % Israel Pettymonia DO Work Phone: [facility] 07-24-2022 10:44-0400 Systolic blood pressure 110 mm[Hg] Israel Pettymonia DO Work Phone: [facility] 07-17-2022 11:05-0400 Body height 172.7 cm Rosa Gonzalez PA-C Work Phone: [facility] 07-17-2022 11:05-0400 Body weight 82.01 kg Rosa Gonzalez PA-C Work Phone: [facility] 07-17-2022 11:05-0400 Diastolic blood pressure 43 mm[Hg] Rosa Gonzalez PA-C Work Phone: [facility] 07-17-2022 11:05-0400 Heart rate 68 /min Rosa Gonzalez PA-C Work Phone: [facility] 07-17-2022 11:05-0400 Respiratory rate 18 /min Rosa Gonzalez PA-C Work Phone: [facility] 07-17-2022 11:05-0400 SaO2% (BldA) [Mass fraction] 98 % Rosa Gonzalez PA-C Work Phone: [facility] 07-17-2022 11:05-0400 Systolic blood pressure 118 mm[Hg] Rosa Gonzalez PA-C Work Phone: [facility] 06-10-2022 11:23-0400 Body height 172.7 cm Iram Johnson CAKE PRESS OPERATOR HELPER.PHOTO MASK PATTERN GENERATOR Work Phone: [facility] 06-10-2022 11:23-0400 Body weight 93.89 kg Iram Johnson CAKE PRESS OPERATOR HELPER.PHOTO MASK PATTERN GENERATOR Work Phone: [facility] 06-10-2022 11:23-0400 Diastolic blood pressure 78 mm[Hg] Iram Johnson CAKE PRESS OPERATOR HELPER.PHOTO MASK PATTERN GENERATOR Work Phone: [facility] 06-10-2022 11:23-0400 Heart rate 65 /min Iram Johnson CAKE PRESS OPERATOR HELPER.PHOTO MASK PATTERN GENERATOR Work Phone: [facility] 06-10-2022 11:23-0400 Systolic blood pressure 128 mm[Hg] Iram Johnson CAKE PRESS OPERATOR HELPER.PHOTO MASK PATTERN GENERATOR Work Phone: [facility] 05-29-2022 14:56-0400 Body height 172.7 cm Israel Tirmonia DO Work Phone: [facility] 05-29-2022 14:56-0400 Body temperature 97.5 [degF] Israel Tirmonia DO Work Phone: [facility] 05-29-2022 14:56-0400 Body weight 93.89 kg Israel Tirmonia DO Work Phone: [facility] 05-29-2022 14:56-0400 Diastolic blood pressure 64 mm[Hg] Israel Tirmonia DO Work Phone: [facility] 05-29-2022 14:56-0400 Heart rate 70 /min Israel Tirmonia DO Work Phone: [facility] 05-29-2022 14:56-0400 SaO2% (BldA) [Mass fraction] 99 % Israel Tirmonia DO Work Phone: [facility] 05-29-2022 14:56-0400 Systolic blood pressure 110 mm[Hg] Israel Pruitt DO Work Phone: [facility] 05-08-2022 13:08-0400 Body weight 90.17 kg Laron Fortune PA-C Work Phone: [facility] 05-08-2022 13:08-0400 Diastolic blood pressure 53 mm[Hg] Laron Fortune PA-C Work Phone: [facility] 05-08-2022 13:08-0400 Heart rate 64 /min Laron Fortune PA-C Work Phone: [facility] 05-08-2022 13:08-0400 SaO2% (BldA) [Mass fraction] 97 % Laron Fortune PA-C Work Phone: [facility] 05-08-2022 13:08-0400 Systolic blood pressure 137 mm[Hg] Laron Fortune PA-C Work Phone: [facility] 03-21-2022 13:15-0400 Body height 167.6 cm Guillermina Sylviawood CAKE PRESS OPERATOR HELPER.PHOTO MASK PATTERN GENERATOR Work Phone: [facility] 03-21-2022 13:15-0400 Body weight 91.44 kg Guillermina Sylviawood CAKE PRESS OPERATOR HELPER.PHOTO MASK PATTERN GENERATOR Work Phone: [facility] 03-21-2022 13:15-0400 Diastolic blood pressure 52 mm[Hg] Guillermina Sylviawood CAKE PRESS OPERATOR HELPER.PHOTO MASK PATTERN GENERATOR Work Phone: [facility] 03-21-2022 13:15-0400 Heart rate 70 /min Guillermina Sylviawood CAKE PRESS OPERATOR HELPER.PHOTO MASK PATTERN GENERATOR Work Phone: [facility] 03-21-2022 13:15-0400 SaO2% (BldA) [Mass fraction] 97 % Guillermina Sylviawood CAKE PRESS OPERATOR HELPER.PHOTO MASK PATTERN GENERATOR Work Phone: [facility] 03-21-2022 13:15-0400 Systolic blood pressure 131 mm[Hg] Guillermina Ellwood CAKE PRESS OPERATOR HELPER.PHOTO MASK PATTERN GENERATOR Work Phone: [facility] 03-18-2022 10:16-0400 Body weight 90.27 kg Israel Pruitt DO Work Phone: [facility] 03-18-2022 10:16-0400 Diastolic blood pressure 80 mm[Hg] Israel Pruitt DO Work Phone: [facility] 03-18-2022 10:16-0400 Systolic blood pressure 168 mm[Hg] Israel Pruitt DO Work Phone: [facility] 02-26-2022 14:51-0400 Body height 170.2 cm Guillerminakarey Cummings CAKE PRESS OPERATOR HELPER.PHOTO MASK PATTERN GENERATOR Work Phone: [facility] 02-26-2022 14:51-0400 Body weight 88.45 kg Guillerminakarey Cummings CAKE PRESS OPERATOR HELPER.PHOTO MASK PATTERN GENERATOR Work Phone: [facility] 02-26-2022 14:51-0400 Diastolic blood pressure 60 mm[Hg] Guillerminakarey Cummings CAKE PRESS OPERATOR HELPER.PHOTO MASK PATTERN GENERATOR Work Phone: [facility] 02-26-2022 14:51-0400 Heart rate 65 /min Guillerminakarey Cummings CAKE PRESS OPERATOR HELPER.PHOTO MASK PATTERN GENERATOR Work Phone: [facility] 02-26-2022 14:51-0400 SaO2% (BldA) [Mass fraction] 94 % Guillerminakarey Cummings CAKE PRESS OPERATOR HELPER.PHOTO MASK PATTERN GENERATOR Work Phone: [facility] 02-26-2022 14:51-0400 Systolic blood pressure 120 mm[Hg] Guillerminakarey Cummings CAKE PRESS OPERATOR HELPER.PHOTO MASK PATTERN GENERATOR Work Phone: [facility] NEGATED: Highlighted [id number] 10:40-0500 BMI (Body Mass Index) 36.74 kg/m2 Navin Codey AUTOMATIC FOLDER SEAMER [facility] Work Phone: NEGATED: Highlighted [id number] 10:40-0500 Body weight 99.79 kg Navin Codey AUTOMATIC FOLDER SEAMER [facility] Work Phone: NEGATED: Highlighted [id number] 10:40-0500 Body weight 100 kg Navin Codey AUTOMATIC FOLDER SEAMER [facility] Work Phone: NEGATED: Highlighted [id number] 10:40-0500 BP Diastolic 0 mm[Hg] Navin Codey AUTOMATIC FOLDER SEAMER [facility] Work Phone: NEGATED: Highlighted [id number] 10:40-0500 BP Systolic 0 mm[Hg] Navin Codey AUTOMATIC FOLDER SEAMER [facility] Work Phone: NEGATED: Highlighted [id number] 10:40-0500 Heart rate 2+ Navin Codey AUTOMATIC FOLDER SEAMER [facility] Work Phone: NEGATED: Highlighted [id number] 10:40-0500 Heart rate Navin Codey AUTOMATIC FOLDER SEAMER [facility] Work Phone: NEGATED: Highlighted [id number] 10:40-0500 Height 165.1 cm Navin Codey AUTOMATIC FOLDER SEAMER [facility] Work Phone: NEGATED: Highlighted [id number] 10:40-0500 Height 165 cm Navin Codey AUTOMATIC FOLDER SEAMER [facility] Work Phone: Encounters Encounter Date Encounter Type Care Provider Facility Start: 07-26-2025 ambulatory Star CASSIDY Facility:[facility] Start: 07-14-2025 End: 07-14-2025 ambulatory Codie Summers RN Work Phone: [facility] Start: 07-14-2025 End: 07-14-2025 Evaluation and management of inpatient Codie Summers RN Work Phone: [facility] Comment on above: Transition Of Care ( Inpatient reach in) Start: 07-13-2025 End: 07-25-2025 Evaluation and management of inpatient RONALDO Ambriz PRICILLA Facility:[id number] Start: 07-13-2025 End: 07-13-2025 Follow-up encounter Iram Johnson APRN.PHOTO MASK PATTERN GENERATOR Work Phone: [id number] Start: 07-07-2025 End: 07-07-2025 ambulatory Injection Shaun [facility] Work Phone: Hematology/Oncology Comment on above: 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 Start: 06-26-2025 Non-patient / Non-visit Dr. Ramesh [facility] Work Phone: Start: 06-25-2025 Non-patient / Non-visit Dr. Ramesh Rebolledo MD -[facility] Work Phone: Start: 06-24-2025 End: 06-24-2025 Follow-up encounter Ronaldo Pleitez MD Work Phone: [facility] [place] Start: 06-24-2025 Non-patient / Non-visit Dr. Ramesh Rebolledo MD -[facility] Work Phone: Start: 06-23-2025 ambulatory Mary Parther Facility:[facility] Start: 06-23-2025 End: 06-26-2025 Evaluation and management of inpatient Dr. Mary Prather MD -[facility] Work Phone: Start: 06-23-2025 Emergency department patient visit Dr. 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 Start: 06-19-2025 End: 06-19-2025 Telephone encounter Iram Johnson APRN.CNP Work Phone: [facility] Cardiology EPS [phone] Comment on above: Patient Update Start: 06-19-2025 Non-patient / Non-visit Dr. Ned sinclair MD -[facility] Start: 06-19-2025 End: 06-19-[address] Ronaldo Pleitez MD Work Phone: -Cardiovascular Services Start: 06-19-2025 End: 06-19-[address] Bryanna Tijerina MD -Cardiovascu lar Services Work Phone: Start: 06-19-2025 End: 06-19-2025 ambulatory Bryanna Tijerina Facility:[facility] Start: 06-18-2025 End: 06-19-2025 Emergency department patient visit Dr. 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 Start: 05-30-2025 End: 05-30-2025 ambulatory ARABELLA MORENO Facility: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); MDS (myelodysplastic syndrome) (HCC) Start: 05-05-2025 End: 05-08-2025 Telephone encounter Ronaldo Pleitez MD Work Phone: Internal Medicine [place] Comment on above: Patient Update Start: 04-28-2025 End: 04-28-2025 ambulatory Injection Shaun [facility] Work Phone: Hematology/Oncology Comment on above: 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) (Primary Dx); 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); MDS (myelodysplastic syndrome) (HCC) Start: 04-14-2025 End: 04-25-2025 Follow-up encounter Ronaldo Pleitez MD Work Phone: Internal Medicine [place] Start: 04-14-2025 End: 04-14-2025 ambulatory Injection Shaun [facility] Work Phone: Hematology/Oncology Comment on above: 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) (Primary Dx) Start: 04-07-2025 End: 04-07-2025 Patient encounter procedure Iram Johnson APRN.PHOTO MASK PATTERN GENERATOR Work Phone: [facility] Cardiology EPS [phone] Comment on above: Benign hypertension (Primary Dx); Coronary artery disease involving [place] coronary artery of [place] heart without angina pectoris; Mixed hyperlipidemia; Pacemaker; CHB (complete heart block) (HCC); Chronic atrial fibrillation (HCC); 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 Start: 04-07-2025 End: 04-07-2025 ambulatory IRAM JOHNSON Facility:[id number] Start: 04-05-2025 End: 04-06-2025 Telephone encounter Ronaldo Pleitez MD Work Phone: Internal Medicine [place] Comment on above: Patient Question Start: 03-31-2025 End: 03-31-2025 ambulatory BALJINDER GALLOWAY Facility:[facility] Start: 03-28-2025 ambulatory RONALDO PLEITEZ Faci lity:[facility] Start: 03-27-2025 End: 03-27-2025 Office outpatient visit 25 minutes Ronaldo Pleitez MD Work Phone: Internal Medicine [place] Comment on above: Lymphedema of right lower extremity (Primary Dx); Lymphedema of both lower extremities Start: 03-27-2025 End: 03-27-2025 ambulatory RONALDO PLEITEZ Facility: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 Start: 01-31-2025 End: 01-31-2025 Patient encounter procedure Arabella Moreno APRN.CNP Work Phone: Internal Medicine [place] Comment on above: Medicare annual well ness visit, subsequent (Primary Dx); Lymphedema of both lower extremities; Chronic heart failure with preserved ejection fraction (HCC); Primary hypertension; Hypothyroidism, unspecified type; Constipation due to slow transit Start: 01-20-2025 End: 01-23-2025 Follow-up encounter Ronaldo Pleitez MD Work Phone: Internal Medicine [place] Start: 01-20-2025 End: 01-20-2025 ambulatory Injection Shaun [facility] Work Phone: Hematology/Oncology Comment [...] Start: 01-06-2025 End: 01-06-2025 ambulatory Injection Shaun [facility] Work Phone: Hematology/Oncology Comment on above: 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) (HCC) (Primary Dx); 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); MDS (myelodysplastic syndrome) ([facility]) Start: 12-30-2024 End: 12-30-2024 Patient encounter procedure [facility] Device [address] Cardiology Comment on above: Encounter for care o f pacemaker (Primary Dx) Start: 12-30-2024 End: 12-30-2024 ambulatory RONALDO PLEITEZ Facility:[id number] Start: 12-23-2024 End: 12-23-2024 ambulatory Injection Shaun [facility] Work Phone: Hematology/Oncology Comment on above: 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) (HCC) (Primary Dx); 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); MDS (myelodysplastic syndrome) ([facility]) Refill Request Start: 12-09-2024 End: 12-09-2024 ambulatory Injection Shaun [facility] Work Phone: Hematology/Oncology Comment on above: 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) (HCC) (Primary Dx); 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); MDS (myelodysplastic syndrome) (HCC) Start: 11-24-2024 End: 11-24-2024 ambulatory Injection Shaun [facility] Work Phone: Hematology/Oncology Comment on above: 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 Start: 10-14-2024 End: 10-14-2024 Telephone encounter Ronaldo Pleitez MD Work Phone: Internal Medicine [place] Comment on above: Dental surgeon efrem bear Start: 10-13-2024 End: 10-13-2024 Telephone encounter Iram Johnson APRN.PHOTO MASK PATTERN GENERATOR Work Phone: [facility] Cardiology Comment on above: Results; Patient Upd ate Start: 10-12-2024 ambulatory Iram Johnson Facility: [facility] Start: 10-11-2024 End: 10-11-2024 Office outpatient visit 25 minutes Baljinder Galloway DO Work Phone: Hematology/Oncology Comment on above: 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); Macrocytic anemia Start: 10-11-2024 End: 10-12-2024 ambulatory [facility]INDER [facility] Start: 10-10-2024 End: 10-10-2024 Telephone encounter Ronaldo Pleitez MD Work Phone: Internal Medicine [place] Comment on above: short term medicatio n request Start: 10-03-2024 End: 10-03-2024 ambulatory Ginna Em RN Work Phone: [employer] Comment on above: CDM (Telephonic outr each/) Start: 09-27-2024 End: 09-30-2024 Telephone encounter Iram Johnson APRN.PHOTO MASK PATTERN GENERATOR Work Phone: [facility] Cardiology Start: 09-27-2024 End: 09-27-2024 Patient encounter procedure Iram Johnson CAKE PRESS OPERATOR HELPER.PHOTO MASK PATTERN GENERATOR Work Phone: [facility] Cardiology Comment on above: Benign hypertension (Primary Dx); Coronary artery disease involving [place] coronary artery of [place] heart without angina pectoris; Mixed hyperlipidemia; Pacemaker; CHB (complete heart block) (HCC); Chronic atrial fibrillation (HCC); 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; Acute stroke due [...] Start: 09-27-2024 End: 09-27-2024 ambulatory IRAM JOHNSON Facility:[id number] Start: 09-22-2024 End: 09-22-2024 ambulatory BALJINDER GALLOWAY Facility:[facility] Start: 09-15-2024 End: 09-15-2024 Telephone encounter Baljinder [...] 08-30-2024 ambulatory Ginna Em RN Work Phone: [employer] Comment on above: CDM (Telephonic outr each/) Start: 08-24-2024 End: 08-25-2024 Telephone encounter Ronaldo Pleitez MD Work Phone: Internal Medicine [place] Comment on above: Patient Update Start: 08-22-2024 End: 08-22-2024 ambulatory BALJINDER GALLOWAY Facility:[facility] Start: 08-02-2024 End: 08-02-2024 ambulatory Ginna Em RN Work Phone: [employer] Comment on above: CDM (Telephonic outr each/) Start: 07-29-2024 End: 07-29-2024 ambulatory RONALOD PLEITEZ Facility:[facility] Start: 07-29-2024 End: 07-29-2024 Office outpatient visit [...] Start: 07-21-2024 End: 07-21-2024 ambulatory BALJINDER GALLOWAY Facility:[facility] Start: 07-05-2024 End: 07-05-2024 ambulatory Ginna Em RN Work Phone: [employer] Comment on above: CDM (Telephonic outr each/) Start: 07-04-2024 End: 07-04-2024 ambulatory Ginna Em RN Work Phone: [employer] Comment on above: CDM (Telephonic outr each/) Start: 06-17-2024 End: 06-17-2024 Patient encounter procedure Rem Device [facility] [address] [facility] Cardiology Comment on above: Encounter for care o f pacemaker (Primary Dx) Start: 06-16-2024 End: 06-16-2024 ambulatory Baljinder Galloway DO Work Phone: Hematology/Oncology Comment on above: 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) Start: 06-16-2024 End: 06-16-2024 Patient encounter procedure Baljinder A Masci DO Work Phone: Hematology/Oncology Start: 06-09-2024 ambulatory Ginna packer RN Work Phone: [employer] Comment on above: CDM (Telephonic outr each/) Start: 06-08-2024 ambulatory Ginna packer RN Work Phone: [employer] Comment on above: CDM (Telephonic outr each/) Start: 05-25-2024 ambulatory Ephraim Kraft [facility] Start: 05-25-2024 Patient encounter procedure Ephraim gordon MA [facility] [place] Comment on above: Population Health Na vigation Outreach (Med Adherence ([place])/) Start: 05-11-2024 ambulatory Ginna packer RN Work Phone: [employer] Comment on above: CDM (Telephonic outr each/) Start: 05-10-2024 ambulatory Ginna packer RN Work Phone: [employer] Comment on above: CDM (Telephonic outr each/) Start: 04-12-2024 ambulatory Ginna packer RN Work Phone: [employer] Comment on above: CDM (Telephonic outr [...] 03-15-2024 ambulatory Ginna packer RN Work Phone: [employer] Comment on above: CDM (Telephonic outr each/) Start: 03-14-2024 ambulatory Ginna packer RN Work Phone: [employer] Comment on above: CDM (Telephonic outr each/) Start: 02-29-2024 End: 02-29-2024 Patient encounter procedure Iram Carlson Mio PÉREZPHOTO MASK PATTERN GENERATOR Work Phone: [facility] Cardiology Comment on above: Benign hypertension (Primary Dx); Coronary artery disease involving [place] coronary artery of [place] heart without angina pectoris; Mixed hyperlipidemia; Pacemaker; CHB (complete heart block) (HCC); Chronic atrial fibrillation (HCC); 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 Encounter for care o f pacemaker (Primary Dx) Start: 02-20-2024 Telephone encounter Ronaldo strange MD Work Phone: Internal Medicine [place] Comment on above: Results Start: 02-15-2024 ambulatory Ginna packer RN Work Phone: [employer] Comment on above: CDM (Telephonic outr each/) Start: 01-22-2024 End: 01-22-2024 Subsequent hospital visit by physician Xr [facility] [place] Work Phone: Radiology Comment on above: Chronic heart failur e with preserved ejection fraction (HCC) [I50.32] Start: 01-22-2024 End: 01-22-2024 Patient encounter procedure Ronaldo Pleitez MD Work Phone: Internal Medicine [place] Comment on above: Medicare annual well ness visit, subsequent (Primary Dx); Mixed hyperlipidemia; Lymphedema of both lower extremities; Chronic heart failure with preserved ejection fraction (HCC); Hypothyroidism, unspecified type; Primary hypertension; B12 deficiency; Vitamin D deficiency Start: 01-01-2024 ambulatory Ginna packer RN Work Phone: [employer] Comment on above: CDM (Telephonic outr each/) Start: 12-24-2023 Telephone encounter Ronaldo strange MD Work Phone: Internal Medicine [place] Start: 12-24-2023 End: 12-24-2023 ambulatory Baljinder A Masci DO Work Phone: Hematology/Oncology Comment on above: 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); Macrocytic anemia Start: 12-24-2023 End: 12-24-2023 Patient encounter procedure Baljinder Galloway DO Work Phone: [facility] Start: 12-23-2023 End: 12-23-2023 Patient encounter procedure Ronaldo Pleitez MD Work Phone: Internal Medicine [place] Comment on above: Right elbow pain (Pr imary Dx); Monoarthritis of elbow, 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); MDS (myelodysplastic syndrome) (HCC) Start: 12-23-2023 End: 12-23-2023 Subsequent hospital visit by physician Fer [facility] Work Phone: Radiology Comment on above: Right elbow pain [M2 5.521] Start: 12-21-2023 Telephone encounter Baljinder eric DO Work Phone: Hematology/Oncology Comment on above: Patient Question Start: 12-18-2023 Refill Ronaldo blanton MD Work Phone: Internal Medicine [place] Comment on above: Refill Request Start: 10-07-2023 ambulatory Ginna packer RN Work Phone: [employer] Comment on above: CDM (Telephonic outr each/) Start: 10-02-2023 Refill Israel Pruitt DO Work Phone: Internal Medicine [place] Comment on above: Refill Request Start: 09-30-2023 End: 09-30-2023 ambulatory Baljinder Galloway DO Work Phone: Hematology/Oncology Comment on above: 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); MDS (myelodysplastic syndrome) (HCC) Start: 09-30-2023 End: 09-30-2023 Patient encounter procedure Baljinder Galloway DO Work Phone: [facility] Start: 09-11-2023 Refill Israel Pruitt DO Work Phone: Internal Medicine [place] Comment on above: Refill Request Start: 09-07-2023 ambulatory Ginna packer RN Work Phone: [employer] Comment on above: CDM (Telephonic outr each/) Start: 09-07-2023 Refill Israel Pruitt DO Work Phone: Internal Medicine [place] Comment on above: Refill Request Start: 08-18-2023 Refill Jayashree Farmer CAKE PRESS OPERATOR HELPER.PHOTO MASK PATTERN GENERATOR Work Phone: Internal Medicine [place] Comment on above: Refill Request Start: 07-30-2023 Telephone encounter Iram masterson CAKE PRESS OPERATOR HELPER.PHOTO MASK PATTERN GENERATOR Work Phone: [facility] Cardiology Comment on above: Patient Update Start: 07-29-2023 ambulatory Ginna packer RN Work Phone: [employer] Comment on above: CDM (Telephonic outr each/) Start: 07-24-2023 End: 07-24-2023 Patient encounter procedure Arabella Bates CAKE PRESS OPERATOR HELPER.PHOTO MASK PATTERN GENERATOR Work Phone: Internal Medicine [place] Comment on above: Lymphedema of both l ower extremities (Primary Dx); Chronic heart failure with preserved ejection fraction (HCC); Encounter for immunization Start: 07-23-2023 End: 07-23-2023 Patient encounter procedure Iram Johnson CAKE PRESS OPERATOR HELPER.PHOTO MASK PATTERN GENERATOR Work Phone: [facility] Cardiology Comment on above: Chronic atrial fibri llation (HCC) (Primary Dx); Benign hypertension; Coronary artery disease involving [place] coronary artery of [place] heart without angina pectoris; Mixed hyperlipidemia; CHCF current use of anticoagulant; Pacemaker; CHB (complete heart block) (HCC); PVC's (premature ventricular contractions) Encounter for care o f pacemaker (Primary Dx) Start: 07-02-2023 ambulatory Ginna packer RN Work Phone: [employer] Comment on above: CDM (Telephonic outr each/) Start: 06-22-2023 End: 06-22-[address] Pedro Diaz Work Phone: [facility] Work Phone: Start: 06-22-2023 End: 06-22-[address] Pedro Diaz Work Phone: [facility] Start: 06-22-[address] 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); History of bacteremia; Generalized osteoarthrosis Start: 06-04-2023 ambulatory Ginna packer RN Work Phone: [employer] Comment on above: CDM (Telephonic outr each/) Start: 05-29-2023 End: 05-29-2023 Subsequent hospital visit by physician Xr [facility] Work Phone: Radiology Comment on above: Acute cough [R05.1] Start: 05-26-2023 Telephone encounter Israel Pruitt DO Work Phone: Internal Medicine [place] Comment on above: readmit orders Start: 05-25-2023 Refill Israel Prutit DO Work Phone: Internal Medicine [place] Start: 05-22-2023 Telephone encounter Shorty Faith MD Work Phone: General Surgery Comment on above: Patient Update (Surg ical site ( port removal )) Start: 05-22-2023 End: 05-22-[address] Pedro Diaz Work Phone: [facility]Medical Out Work Phone: Start: 05-21-2023 End: 05-21-2023 Patient encounter procedure Israel Pruitt DO Work Phone: Internal Medicine [place] Comment on above: Gram-negative bacter emia (Primary [...] / Non-visit Dr. Ronna Diaz Work Phone: [facility] Work Phone: Start: 05-17-2023 Non-patient / Non-visit Dr. Ronna Diaz Work Phone: [facility] Work Phone: Start: 05-16-2023 Non-patient / Non-visit Dr. Ronna Diaz Work Phone: [facility] Work Phone: Start: 05-15-2023 Non-patient / Non-visit Dr. Ronna Diaz Work Phone: [facility] Start: 05-15-2023 Non-patient / Non-visit Dr. Ronna Diaz Work Phone: [facility] Work Phone: Start: 05-14-2023 End: 05-18-2023 Evaluation and management of inpatient Dr. Ned Dinh Work Phone: [facility]Pro[facility] Care [facility] Work Phone: Start: 05-14-2023 Telephone encounter Ileana Sosa RN He matology/Oncology Comment on above: Business Development Coordinator - O ther (Symptoms ) Start: 05-14-2023 Non-patient / Non-visit Dr. Ronna Diaz Work Phone: [facility] Start: 05-13-2023 End: 05-13-2023 ambulatory Treatment 13 [facility] Work Phone: Hematology/Oncology Comment on [...] Start: 05-11-2023 End: 05-11-2023 [facility] Work Phone: Hematology/Oncology Comment on above: 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) Start: 05-08-2023 End: 05-08-2023 ambulatory Treatment 13 [facility] Work Phone: Hematology/Oncology Comment on above: 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) Start: 05-07-2023 End: 05-07-2023 ambulatory Treatment 13 [facility] Work Phone: Hematology/Oncology Comment on above: 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) Start: 05-07-2023 Telephone encounter David hi APRN.CNP Work Phone: Hematology/Oncology Comment on above: Patient Question; Pa dom Update (Update regarding decision making regarding patient's right-sided peripheral CV catheter with port with recent diagnosis right IJ DVT.) Start: 05-06-2023 End: 05-06-2023 ambulatory Ginna Em RN Work Phone: [employer] Comment on above: CDM (Telephonic outr each/) Start: 05-06-2023 Telephone encounter Baljinder eric DO Work Phone: Hematology/Oncology Comment on above: Imm/Inj (immunizatio n) Results Start: 05-06-2023 End: 05-06-[address] Pedro Diaz Work Phone: [facility] Start: 05-06-2023 Registered Referred Dr. Ned marti Work Phone: [facility] Start: 05-05-2023 Patient encounter status Taylor myers Hamzah Pruitt DO Work Phone: [facility] [place] Start: 05-05-2023 Telephone encounter Israel Pruitt DO Work Phone: [facility] [place] Comment on above: Orders hepatitis B titer re sults/order Results (DVT) Start: 05-05-2023 End: 05-05-2023 ambulatory Treatment Rm 13 [facility] Work Phone: Hematology/Oncology Comment on above: 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); Arm swelling Start: 05-04-2023 End: 05-04-2023 ambulatory Treatment Rm 13 [facility] Work Phone: Hematology/Oncology Comment on above: 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 Pedro Diaz Work Phone: [facility] Start: 05-04-[address] Ned marti Work Phone: [facility] Start: 05-01-2023 End: 05-01-2023 ambulatory David Cervantes CAKE PRESS OPERATOR HELPER.PHOTO MASK PATTERN GENERATOR Work Phone: Hematology/Oncology Comment on above: 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) Start: 05-01-2023 End: 05-01-2023 Patient encounter procedure David Cervantes APRN.PHOTO MASK PATTERN GENERATOR Work Phone: [facility] Start: 04-24-2023 Telephone encounter Iram masterson APRN.PHOTO MASK PATTERN GENERATOR Work Phone: [facility] Cardiology Comment on above: Patient Question; Pa tient Update Start: 04-21-2023 End: 04-21-2023 Subsequent hospital visit by physician Ct [facility] (I-Stat) Work Phone: Cat Scan Comment on above: Unstable gait [R26.8 1] Start: 04-20-2023 End: 04-20-2023 Patient encounter procedure Israel Pruitt DO Work Phone: [facility] [place] Comment on above: Unstable gait (Prima ry [...] Hematology/Oncology Comment on above: Research ([place] [id number]) Start: 04-15-2023 End: 04-15-2023 ambulatory Treatment Rm 13 Shaun [facility] Work Phone: Hematology/Oncology Comment on above: 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) Start: 04-14-2023 End: 04-14-2023 ambulatory Treatment Rm 13 Shaun [facility] Work Phone: Hematology/Oncology Comment on above: 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) Start: 04-10-2023 Telephone encounter Iram masterson APRN.PHOTO MASK PATTERN GENERATOR Work Phone: [facility] Cardiology Comment on above: Patient Update Start: 04-10-2023 End: 04-10-2023 ambulatory Treatment 13 [facility] Work Phone: Hematology/Oncology Comment on above: 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) Start: 04-09-2023 End: 04-09-2023 ambulatory Treatment 13 [facility] Work Phone: Hematology/Oncology Comment on above: 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) Start: 04-08-2023 Telephone encounter Ileana Sosa RN He matology/Oncology Comment on above: Business Development Coordinator - O ther (New patient ) Start: 04-08-2023 End: 04-08-2023 ambulatory Treatment 13 [facility] Work Phone: Hematology/Oncology Comment on above: 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) Start: 03-25-2023 End: 03-25-2023 Patient encounter procedure Israel Lucioverna Pruitt DO Work Phone: [facility] [place] Comment on above: Traumatic ecchymosis of foot, right, initial encounter (Primary Dx); Bilateral calf pain; Venous stasis of both lower extremities; Diminished pulses in lower extremity Start: 03-23-2023 ambulatory Eveline Bonilla Work Phone: [facility] Start: 03-23-2023 Follow-up encounter Eveline torres RN Work Phone: [facility] Comment on above: community monitoring outreach (Cdm ED follow up) Start: 03-20-2023 End: 03-20-2023 Emergency department patient visit ISRAEL PRUITT Facility:[facility] Start: 03-20-2023 ambulatory Jennifer Wilson APRN.PHOTO MASK PATTERN GENERATOR Work Phone: Virtual Medicine Comment on above: Blue toes (Primary D x) Start: 03-20-2023 Telemedicine consult ation with patient Jennifer Wilson CAKE PRESS OPERATOR HELPER.PHOTO MASK PATTERN GENERATOR Work Phone: MAIN VIRTUAL VISIT Start: 03-19-2023 ambulatory Eveline Bonilla Work Phone: [facility] Comment on above: community monitoring outreach (Cdm telephonic outreach) Start: 03-18-2023 Telephone encounter Israel Pruitt DO Work Phone: [facility] Comment on above: Patient Update Start: 03-17-2023 End: 03-17-2023 ambulatory ISRAEL PRUITT Facility:[facility] Start: 03-17-2023 End: 03-17-2023 ambulatory Chair 8 [facility] [employer] Work Phone: Hematology/Oncology Comment on above: 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) Start: 03-16-2023 End: 03-16-2023 ambulatory ISRAEL PRUITT Facility:[facility] Start: 03-16-2023 End: 03-16-2023 ambulatory Chair 2 [facility] Work Phone: Hematology/Oncology Comment on above: 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) Start: 03-13-2023 Telephone encounter Baljinder eric DO Work Phone: Hematology/Oncology Comment on above: New Patient Start: 03-13-2023 End: 03-13-2023 ambulatory ISRAEL PRUITT Facility:[facility] Start: 03-13-2023 End: 03-13-2023 ambulatory Chair 8 [facility] [employer] Phone: Hematology/Oncology Comment on above: 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) Start: 03-12-2023 End: 03-12-2023 Patient encounter procedure Israel Pruitt DO Work Phone: [facility] [place] Comment on above: PAF (paroxysmal atri al fibrillation) (HCC) (Primary Dx); MDS (myelodysplastic syndrome) (HCC); Essential hypertension, benign; Hypothyroidism, unspecified type; Chronic heart failure with preserved ejection fraction (HCC); Constipation due to slow transit; 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HCC); Mixed hyperlipidemia; Vitamin D deficiency Start: 03-12-2023 End: 03-12-2023 ambulatory ISRAEL PRUITT Facility:[facility] Start: 03-12-2023 End: 03-12-2023 ambulatory Chair 7 [facility] [employer] Phone: Hematology/Oncology Comment on above: 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) Start: 03-11-2023 End: 03-11-2023 ambulatory ISRAEL PRUITT Facility:[facility] Start: 03-11-2023 End: 03-11-2023 ambulatory Chair 8 [employer] Phone: Hematology/Oncology Comment on above: 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); Chemotherapy-induced neutropenia (HCC) Start: 03-11-2023 End: 03-11-2023 Patient encounter procedure Randa Rowell DO Work Phone: [facility] [employer] Start: 03-10-2023 End: 03-10-2023 ambulatory ISRAEL PRUITT Facility:[facility] Start: 03-09-2023 End: 03-09-2023 ambulatory ISRAEL PRUITT Facility:[facility] Start: 03-09-2023 End: 03-09-2023 ambulatory Chair 8 [employer] Phone: Hematology/Oncology Comment on above: 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) Start: 02-28-2023 ambulatory Israel Pruitt DO Work Phone: [facility] [place] Comment on above: LOCATION Start: 02-17-2023 End: 02-17-2023 ambulatory ISRAEL PRUITT Facility:[facility] Start: 02-17-2023 End: 02-17-2023 ambulatory Chair 5 [facility] [employer] Phone: Hematology/Oncology Comment on above: 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) Start: 02-16-2023 End: 02-16-2023 ambulatory ISRAEL PRUITT Facility:[facility] Start: 02-16-2023 End: 02-16-2023 ambulatory Chair 5 [facility] [employer] Phone: Hematology/Oncology Comment on above: 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) Start: 02-13-2023 End: 02-13-2023 ambulatory ISRAEL PRUITT Facility:[facility] Start: 02-13-2023 End: 02-13-2023 ambulatory Chair 7 [facility] [employer] Phone: Hematology/Oncology Comment on above: 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) Start: 02-12-2023 End: 02-12-2023 ambulatory ISRAEL PRUITT Facility:[facility] Start: 02-12-2023 End: 02-12-2023 ambulatory Chair 2 [facility] [employer] Phone: Hematology/Oncology Comment on above: 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) Start: 02-11-2023 End: 02-11-2023 ambulatory ISRAEL PRUITT Facility:[facility] Start: 02-11-2023 End: 02-11-2023 ambulatory Chair 4 [facility] [employer] Phone: Hematology/Oncology Comment on above: 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) Start: 02-10-2023 End: 02-10-2023 ambulatory ISRAEL PRUITT Facility:[facility] Start: 02-10-2023 End: 02-10-2023 ambulatory Chair 7 [facility] [employer] Phone: Hematology/Oncology Comment on above: 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) Start: 02-09-2023 End: 02-09-2023 ambulatory ISRAEL PRUITT Facility:[facility] Start: 02-09-2023 End: 02-09-2023 ambulatory Bed 1 [facility] [employer] Phone: Hematology/Oncology Comment on above: 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) Start: 02-04-2023 End: 02-05-2023 ambulatory ISRAEL PRUITT Facility:[facility] Start: 02-04-2023 End: 02-04-2023 ambulatory Randa Rowell Eletrogóes Work Phone: [facility] Hematology/Oncology Comment on above: 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); Chemotherapy-induced neutropenia (HCC); Macrocytic anemia Start: 02-04-2023 End: 02-04-2023 Patient encounter procedure Randa Rowell [employer] Phone: [facility] [employer] Start: 01-30-2023 ambulatory Eveline Bonilla Work Phone: [facility] Comment on above: community monitoring outreach (Cdm telephonic outreach) Start: 01-20-2023 End: 01-20-2023 ambulatory ISRAEL PRUITT Facility:[facility] Start: 01-19-2023 End: 01-19-2023 ambulatory ISRAEL PRUITT Facility:[facility] Start: 01-19-2023 End: 01-19-2023 ambulatory Chair 2 [employer] Phone: Hematology/Oncology Comment on above: 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) Start: 01-16-2023 End: 01-16-2023 ambulatory ISRAEL PRUITT Facility:[facility] Start: 01-16-2023 End: 01-16-2023 ambulatory Chair 5 [employer] Phone: Hematology/Oncology Comment on above: 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) Start: 01-15-2023 End: 01-15-2023 ambulatory ISRAEL PRUITT Facility:[facility] Start: 01-15-2023 End: 01-15-2023 ambulatory Chair 5 [facility] [employer] Phone: Hematology/Oncology Comment on above: 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) Start: 01-14-2023 End: 01-14-2023 ambulatory ISRAEL PRUITT Facility:[facility] Start: 01-14-2023 End: 01-14-2023 ambulatory Randa Rowell DO Work Phone: [facility] Hematology/Oncology Comment on above: 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); Macrocytic anemia 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) Start: 01-14-2023 End: 01-14-2023 Patient encounter procedure Randa Rowell DO Work Phone: [facility] [employer] Start: 01-13-2023 End: 01-13-2023 Patient encounter procedure Iram Johnson APRN.PHOTO MASK PATTERN GENERATOR Work Phone: [facility] Cardiology Comment on above: Benign hypertension (Primary Dx); Coronary artery disease involving [place] coronary artery of [place] heart without angina pectoris; Mixed hyperlipidemia; PAF (paroxysmal atrial fibrillation) (HCC); Pacemaker; CHB (complete heart block) (HCC); 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 Encounter for care o f pacemaker (Primary Dx) Start: 01-13-2023 End: 01-15-2023 ambulatory ISRAEL PRUITT Facility:[facility] Start: 01-13-2023 End: 01-13-2023 ambulatory Chair 5 [facility] [employer] Phone: Hematology/Oncology Comment on above: 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) Start: 01-12-2023 End: 01-12-2023 ambulatory ISRAEL PRUITT Facility:[facility] Start: 01-12-2023 End: 01-12-2023 ambulatory Bed 1 [facility] [employer] Phone: Hematology/Oncology Comment on above: 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) Start: 01-08-2023 ambulatory Eveline Pablo Chad Work Phone: [facility] Comment on above: community monitoring outreach (Cdm telephonic outreach) Start: 12-23-2022 End: 12-23-2022 ambulatory ISRAEL PRUITT Facility:[facility] Start: 12-22-2022 End: 12-22-2022 ambulatory Chair 3 [facility] [employer] Phone: Hematology/Oncology Comment on above: 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) Start: 12-19-2022 End: 12-22-2022 ambulatory ISRAEL PRUITT Facility:[facility] Start: 12-18-2022 End: 12-19-2022 ambulatory ISRAEL PRUITT Facility:[facility] Start: 2022 End: 12-18-2022 ambulatory ISRAEL PRUITT Facility:[facility] Start: 2022 End: 2022 ambulatory Chair 8 [facility] [employer] Work Phone: Hematology/Oncology Comment on above: 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) Start: 12-16-2022 End: 2022 ambulatory RANDA ROWELL Facility:[facility] Start: 12-15-2022 Telephone encounter Linda Pollock PG Hematology/Oncology Comment on above: Benefits Investigati on Start: 12-15-2022 End: 12-16-2022 ambulatory RANDALOUIS ROWELL Facility:[facility] Start: 12-15-2022 End: 12-15-2022 ambulatory Bed 2 [facility] [employer] Phone: Hematology/Oncology Comment on above: 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) Start: 12-11-2022 End: 12-11-2022 Patient encounter procedure Israel Pruitt DO Work Phone: [facility] [place] Comment on above: Other myeloid leukem ia [...] deficiency Start: 12-05-2022 ambulatory [facility] BUTLER [facility] Start: 12-05-2022 End: 12-05-2022 Subsequent hospital visit by physician Manjeet Butler MD Work Phone: [facility] INTERVENTIONAL RADIOLOGY Comment on above: 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) [C93.10] Start: 12-04-2022 End: 12-05-2022 ambulatory Skye Mas APRN.PHOTO MASK PATTERN GENERATOR Work Phone: [facility] Hematology/Oncology Comment on above: 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); Other specified counseling Start: 12-04-2022 End: 12-04-2022 Patient encounter procedure Skye Mas APRN.PHOTO MASK PATTERN GENERATOR Work Phone: [facility] Start: 11-26-2022 End: 11-27-2022 ambulatory ISRAEL PRUITT Facility:[facility] Start: 11-26-2022 Telephone encounter Randalouis Avelartrice myers DO Work Phone: [facility] Hematology/Oncology Comment on above: Appointment Start: 11-26-2022 End: 11-26-2022 ambulatory ISRAEL PRUITT Facility:[facility] Start: 11-26-2022 End: 11-26-2022 ambulatory Randa Rowell DO Work Phone: [facility] Hematology/Oncology Comment on above: 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) Start: 11-26-2022 End: 11-26-2022 Patient encounter procedure Randa Rowell DO Work Phone: [facility] Start: 11-20-2022 Refill Israel Pruitt DO Work Phone: [facility] [place] Comment on above: Refill Request Start: 11-06-2022 Telephone encounter Christa Paris RN [facility] Comment on above: ak HFC question Start: 11-05-2022 End: 11-06-2022 ambulatory Randa Sindel DO Work Phone: [facility] Hematology/Oncology Comment on above: MDS (myelodysplastic syndrome) (HCC) (Primary Dx); Macrocytic anemia Start: 11-05-2022 End: 11-05-2022 Patient encounter procedure Randalouis Avelardel DO Work Phone: [facility] [employer] Start: 10-24-2022 ambulatory ISRAEL HAMZAHVERNA PRUITT Facility:[facility] Start: 10-24-2022 End: 10-24-2022 Subsequent hospital visit by physician Jesus Manuel White MD Work Phone: [facility] INTERVENTIONAL RADIOLOGY Comment on above: Macrocytic anemia [D 53.9] Start: 10-23-2022 End: 10-23-2022 Refill Israel Pruitt DO Work Phone: [facility] [place] Comment on above: Refill Request Patient Question Impending cerebrovas cular accident (HCC) (Primary Dx); Cerebral artery occlusion with cerebral infarction (HCC); Paresthesia Start: 10-16-2022 End: 10-17-2022 ambulatory ISRAEL PRUITT Facility:[facility] Start: 10-16-2022 End: 10-16-2022 Patient encounter procedure Tara Neal APRN.PHOTO MASK PATTERN GENERATOR Work Phone: [facility] Comment on above: Chronic heart failur e with preserved ejection fraction (HCC) [I50.32 (ICD-10-CM)] (Primary Dx) Start: 10-09-2022 Telephone encounter Randa myers DO Work Phone: [facility] Comment on above: Orders (Bone Marrow Biopsy) Start: 10-09-2022 End: 10-09-2022 ambulatory ISRAEL PRUITT Facility:[facility] Start: 10-09-2022 End: 10-09-2022 ambulatory Randa Sindel DO Work Phone: [facility] Hematology/Oncology Comment on above: Macrocytic anemia (P rimary Dx) Start: 10-09-2022 End: 10-09-2022 Patient encounter procedure Randa Rowell DO Work Phone: [facility] Start: 10-06-2022 End: 10-06-2022 ambulatory Rosa Abrams OT/[facility] [place] Comment on above: Impending cerebrovas cular accident (HCC) (Primary Dx); Cerebral artery occlusion with cerebral infarction (HCC); Numbness in cervical dermatome distribution; Paresthesia Start: 10-01-2022 End: 10-01-2022 Patient encounter procedure [facility] Alyssa Work Phone: [facility] Cardiology Comment on above: Pacemaker (Primary D x); PAF (paroxysmal atrial fibrillation) (HCC) Start: 09-29-2022 Telephone encounter Israel Pruitt DO Work Phone: [facility] [place] Comment on above: Patient Update Start: 09-25-2022 End: 09-25-2022 Patient encounter procedure Israel Pruitt DO Work Phone: [facility] [place] Comment on above: Complete heart block (HCC) (Primary Dx); Paroxysmal atrial fibrillation (HCC); Hx of four vessel coronary artery bypass graft; Essential hypertension, benign; Anemia, unspecified type; Numbness and tingling of left arm and leg; Iron deficiency; Constipation due to slow transit; Ankle edema, bilateral Start: 09-23-2022 Telephone encounter Israel Pruitt DO Work Phone: [facility] [place] Comment on above: Patient Question; Ap pointment Start: 09-19-2022 ambulatory Lena Cruz RN [facility] Start: 09-19-2022 Telephone encounter Minerva Herbert RN [facility] Comment on above: Appointment Transition Of Care Transition Of Care ( TCM Pharmacy-Hospital discharge 09/18/22/) Start: 09-17-2022 Telephone encounter Israel Pruitt DO Work Phone: [facility] [place] Comment on above: Patient Update; Orde rs Start: 09-16-2022 Telephone encounter Israel Pruitt DO Work Phone: [facility] [place] Comment on above: Patient Update Start: 09-11-2022 End: 09-11-2022 Patient encounter procedure Israel Pruitt DO Work Phone: [facility] [place] Comment on above: 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HCC) [...] Israel Pruitt DO Work Phone: [facility] [place] Comment on above: Occupation Therapy P ree of care Start: 09-10-2022 ambulatory Israel Pruitt DO Work Phone: [facility] [place] Comment on above: Stomach Start: 09-08-2022 Patient Outreach Lena Cruz RN I [facility] [place] Comment on above: Transition Of Care Start: 09-05-2022 Telephone encounter Israel Pruitt DO Work Phone: [facility] [place] Comment on above: Patient Update Start: 09-03-2022 Telephone encounter Israel Pruitt DO Work Phone: [facility] [place] Comment on above: Patient Question Start: 08-22-2022 Anticoagulant drug monitoring Vaishali Ng MD, PhD Work Phone: Neurosurgery Comment on above: Cerebrovascular acci dent (CVA), unspecified mechanism (HCC) (Primary Dx); Primary hypertension; Atrial fibrillation, unspecified type (HCC); 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 Start: 08-22-2022 Telemedicine consult ation with patient Vaishali Ng MD, PhD Work Phone: [facility] Start: 08-14-2022 Refill Israel Pruitt DO Work Phone: [facility] [place] Comment on above: Refill Request Start: 08-07-2022 Patient Outreach Tere herman RN Work Phone: [facility] Comment on above: Transition Of Care ( TCM F/U) Start: 08-05-2022 Refill Israel Pruitt DO Work Phone: [facility] [place] Start: 07-29-2022 End: 07-29-2022 ambulatory BALJINDER TREVIZO Facility:[facility] Start: 07-25-2022 Patient Outreach Tere herman RN Work Phone: [facility] Comment on above: Transition Of Care ( TCM F/U) Start: 07-24-2022 End: 07-24-2022 Patient encounter procedure Israel Pruitt DO Work Phone: [facility] [place] Comment on above: Spinal stenosis of l [...] Start: 07-24-2022 End: 07-25-2022 ambulatory ISRAEL PRUITT Facility:[facility] Start: 07-22-2022 Telephone encounter Baljinder bonilla MD Work Phone: Pain Management Comment on above: Consult Start: 07-17-2022 End: 07-18-2022 ambulatory ISRAEL PRUITT Facility:[facility] Start: 07-17-2022 End: 07-17-2022 Patient encounter procedure Rosa Gonzalez PA-C Work Phone: [facility] Comment on above: [...] Evaluation and management of inpatient ISRAEL PRUITT Facility:[facility] Start: 07-04-2022 End: 07-04-2022 Emergency department patient visit ISRAEL PRUITT Facility:[facility] Start: 07-04-2022 ambulatory Israel Pruitt DO Work Phone: [facility] [place] Comment on above: Reporting Start: 07-03-2022 Orders Only Baljinder Trevizo MD Work Phone: Pain Management Comment on above: 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 (Primary Dx); Arthropathy of lumbar facet joint Start: 06-13-2022 Telephone encounter Baljinder bonilla MD Work Phone: Pain Management Comment on above: Consult (Injection); Schedule Injection; Cardiac Clearance Start: 06-10-2022 End: 06-10-2022 Patient encounter procedure Iram Johnson CAKE PRESS OPERATOR HELPER.PHOTO MASK PATTERN GENERATOR Work Phone: [facility] Comment on above: Benign hypertension (Primary Dx); Coronary artery disease involving [place] coronary artery of [place] heart without angina pectoris; Mixed hyperlipidemia; PAF (paroxysmal atrial fibrillation) (HCC); [facility] current use of anticoagulants with INR goal of 2.0-3.0; RBBB; PVC's (premature ventricular contractions) Start: 06-04-2022 End: 06-04-2022 Subsequent hospital visit by physician Xr [facility] 3 RADIO [facility] Comment on above: Vivienne ricardo juanyohana s [M70.50] Start: 06-04-2022 Telephone encounter Israel Pruitt DO Work Phone: [facility] [place] Comment on above: Radiology XR Start: 06-02-2022 Telephone encounter Israel Pruitt DO Work Phone: [facility] [place] Comment on above: Results, Lab Start: 05-30-2022 Telephone encounter Jayashree Negrete [facility] CAKE PRESS OPERATOR HELPER.PHOTO MASK PATTERN GENERATOR Work Phone: [facility] [place] Comment on above: Opened In Error Start: 05-29-2022 End: 05-29-2022 Patient encounter procedure Israel Pruitt DO Work Phone: [facility] [place] Comment on above: Pes anserine bursiti s (Primary Dx); Acute pain of right knee; Primary insomnia; Spinal stenosis of lumbar region with neurogenic claudication; Paroxysmal atrial fibrillation (HCC); Essential hypertension, benign Start: 05-28-2022 ambulatory Laron Jorgensen ms, PA-C Work Phone: [facility] Comment on above: Lumbar MRI results Start: 05-28-2022 E-mail encounter fro m caregiver Laron Fortune PA-C Work Phone: [facility] Start: 05-26-2022 ambulatory ISRAEL PRUITT Facility:[facility] Start: 05-26-2022 End: 05-26-2022 Subsequent hospital visit by physician Bibiana Yang (1.5t) [facility] Comment on above: 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 [M48.062] Start: 05-26-2022 Telephone encounter Israel Pruitt DO Work Phone: [facility] [place] Comment on above: Appointment Start: 05-15-2022 ambulatory Israel Pruitt DO Work Phone: [facility] [place] Comment on above: New Information Start: 05-08-2022 End: 05-08-2022 Patient encounter procedure Laron Fortune PA-C Work Phone: [facility] Comment on above: 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 Start: 04-17-2022 Refill Israel Pruitt DO Work Phone: [facility] [place] Comment on above: Refill Request Start: 04-11-2022 End: 04-11-2022 ambulatory Eyal Rodrigues PT [facility] Comment on above: 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 (Primary Dx); Chronic bilateral low back pain without sciatica Start: 04-04-2022 End: 04-04-2022 ambulatory Eyal Rodrigues PT [facility] Comment on above: 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 (Primary Dx); Chronic bilateral low back pain without sciatica Start: 04-02-2022 Telephone encounter Israel Pruitt DO Work Phone: [facility] [place] Comment on above: Results, Lab Start: 03-28-2022 End: 03-28-2022 ambulatory Eyal Rodrigues PT [facility] Comment on above: 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 (Primary Dx); Chronic bilateral low back pain without sciatica Start: 03-24-2022 Telephone encounter Guillermina galeas APRN.PHOTO MASK PATTERN GENERATOR Work Phone: [facility] [place] Comment on above: Results Start: 03-21-2022 End: 03-21-2022 Patient encounter procedure Guillermina Cummings CAKE PRESS OPERATOR HELPER.PHOTO MASK PATTERN GENERATOR Work Phone: [facility] [place] Comment on above: Leg swelling (Primar y Dx); Primary hypertension Start: 03-21-2022 End: 03-21-2022 ambulatory Sanket Solo PT Work Phone: [facility] Comment on above: Chronic bilateral lo w back pain without sciatica (Primary Dx); Spinal stenosis of lumbar region with neurogenic claudication Start: 03-18-2022 End: 03-18-2022 ambulatory Israel Pruitt DO Work Phone: [facility] [place] Comment on above: Anemia, unspecified type (Primary [...] with patient Israel Pruitt DO Work Phone: [facility] Start: 03-12-2022 End: 03-12-2022 Subsequent hospital visit by physician Xr Green [facility] Comment on above: 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 [M48.062] Start: 02-26-2022 End: 02-26-2022 Patient encounter procedure Guillermina Cummings CAKE PRESS OPERATOR HELPER.PHOTO MASK PATTERN GENERATOR Work Phone: [facility] [place] Comment on above: Chronic midline low back pain without sciatica (Primary Dx); Spinal stenosis of lumbar region with neurogenic claudication Start: 02-20-2022 Refill Israel Goodson Tirmonia DO Work Phone: [facility] [place] Comment on above: Refill Request Medication Start: 02-17-2022 Refill Israel Gerberia DO Work Phone: [facility] [place] Comment on above: Refill Request Start: 02-09-2022 ambulatory Israel Pettymonia DO Work Phone: [facility] [place] Comment on above: Medication Start: 02-09-2022 E-mail encounter fro m caregiver Iram Johnson CAKE PRESS OPERATOR HELPER.PHOTO MASK PATTERN GENERATOR Work Phone: [facility] Start: 02-09-2022 Patient encounter procedure Ginger Johnson CAKE PRESS OPERATOR HELPER.PHOTO MASK PATTERN GENERATOR Work Phone: [facility] Comment on above: Appointment Request (HM) Start: 09-28-2020 End: 09-28-2020 Patient encounter procedure Laron Arreola MD Work Phone: [facility] Work Phone: Procedures Date Procedure Procedure Detail Performing Clinician Start: 07-07-2025 Ecg routine ecg w/le ast 12 lds i&r only [facility] Provider Start: 06-26-[address] Ronaldo Pleitez MD Work Phone: Start: 06-26-2025 Serum inorganic phos phate measurement Dr. Ronaldo Pleitez MD Work Phone: Start: 06-23-[address] Ronaldo Pleitez MD Work Phone: Start: 06-18-[address] Ronaldo Pleitez MD Work Phone: Start: 04-07-2025 Ecg routine ecg w/le ast 12 lds i&r only Iram Johnson CAKE PRESS OPERATOR HELPER.PHOTO MASK PATTERN GENERATOR Work Phone: Start: 07-29-2024 Adult depression scr eening assessment Ronaldo Pleitez MD Work Phone: Start: 01-22-2024 Radiologic exam ches t 2 views Ronaldo Pleitez MD Work Phone: Start: 12-23-2023 Radex elbow complete minimum 3 views Ronaldo Pleitez MD Work Phone: Start: 07-24-2023 INFLUENZA VACCINE, P RSV FREE, AGE 65+ YR, HIGH DOSE, QUADRIVALENT (FLUZONE HIGH-DOSE) Arabella Older CAKE PRESS OPERATOR HELPER.PHOTO MASK PATTERN GENERATOR Work Phone: Start: 05-29-2023 Radiologic exam ches [...] Radiologic examinati on knee 1/2 views Israel Goodson Tirmonia DO Work Phone: Start: 05-26-2022 Mri spinal canal lum bar w/o contrast material Laron Fortune PA-C Work Phone: Start: 03-12-2022 Radex spine lumbosac ral minimum 4 views Laron Fortune PA-C Work Phone: Start: 07-10-2021 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 Iram Johnson CAKE PRESS OPERATOR HELPER.PHOTO MASK PATTERN GENERATOR Work Phone: Start: 09-28-2020 End: 09-28-2020 Blood [...] 09-28-2020 End: 09-28-2020 Documentation of current medications Navin Alegre LPN Plan of Treatment Date Care Activity Detail Author Start: 07-14-2028 [facility] Start: 07-13-2028 Diabetes Scre[facility] Start: 07-07-2028 Diabetes Screening [facility] Start: 06-23-2028 Diabetes Screening [facility] Start: 04-14-2028 Diabetes Screening [facility] Start: 03-31-2028 Diabetes Screening [facility] Start: 01-21-2028 Diabetes Scre[facility] Start: 01-06-2028 Diabetes Screening Diabetes [facility] Start: 09-15-2027 Diabetes Screening Diabetes [facility] Start: 06-16-2027 Diabetes Screening [facility] Start: 03-17-2027 Diabetes Screening [facility] Start: 02-17-2027 Diabetes Screening Diabetes [facility] Start: 01-20-2027 Diabetes Screening [facility] Start: 12-24-2026 Diabetes Screening [facility] Start: 09-30-2026 Diabetes Screening [facility] Start: 08-06-2026 Diabetes Screening Diabetes Screenin [facility] Start: 07-14-2026 Hepatitis B surface antibody level LDL Cholesterol [facility] Start: 06-25-2026 DIABETES SCREEN DIABETES SCREEN [facility] Start: 06-25-2026 Diabetes Screening Diabetes Screenin g [facility] Start: 05-28-2026 DIABETES SCREEN DIABETES SCREEN [facility] Start: 05-14-2026 DIABETES SCREEN DIABETES SCREEN [facility] Start: 05-01-2026 DIABETES SCREEN DIABETES SCREEN [facility] Start: 04-17-2026 End: 04-17-2026 Patient encounter procedure [facility] EPS 220 Comment on above: bio and rc Start: 04-08-2026 DIABETES SCREEN DIABETES SCREEN [facility] Start: 03-27-2026 Covid-19 Vaccine (8 - Pfizer risk ) Covid-19 Vaccine (8 - Pfizer risk ) [facility] Comment on above: Postponed from 02/27 (Declined at this time) Start: 03-20-2026 DIABETES SCREEN DIABETES SCREEN [facility] Start: 03-11-2026 DIABETES SCREEN DIABETES SCREEN [facility] Start: 03-09-2026 DIABETES SCREEN DIABETES SCREEN [facility] Start: 02-09-2026 DIABETES SCREEN DIABETES SCREEN [facility] Start: 02-04-2026 DIABETES SCREEN DIABETES SCREEN [facility] Start: 01-20-2026 Hepatitis B surface antibody level LDL Cholesterol [facility] Start: 01-12-2026 DIABETES SCREEN DIABETES SCREEN [facility] Start: 12-15-2025 DIABETES SCREEN DIABETES SCREEN [facility] Start: 10-07-2025 DIABETES SCREEN DIABETES SCREEN [facility] Start: 09-29-2025 End: 09-29-2025 Patient encounter procedure 09/29/2025 1:00 PM EST Office Visit [facility] [place] [address] [place] [address] Ronaldo Pleitez MD [address] [place] [address] 3 month follow-up [facility] [place] Comment on above: 3 month follow-up Start: 09-18-2025 DIABETES SCREEN DIABETES SCREEN [facility] Start: 09-16-2025 DIABETES SCREEN DIABETES SCREEN [facility] Start: 09-15-2025 Hepatitis B surface antibody level LDL Cholesterol [facility] Start: 09-04-2025 DIABETES SCREEN DIABETES SCREEN [facility] Start: 09-01-2025 End: 09-01-2025 ambulatory [facility] Comment on above: (SO)CBC(?TX)* Q2WK ?ARANESP/LAB EA RLY* Q2WK ?ARANESP/LAB EA RLY* 3MO OV DUE SEP Start: 08-28-2025 DIABETES SCREEN DIABETES SCREEN [facility] Start: 08-22-2025 DIABETES SCREEN DIABETES SCREEN [facility] Start: 08-18-2025 End: 08-18-2025 ambulatory [facility] Comment on above: (SO)CBC(?TX)* Q2WK ?ARANESP/LAB EA RLY* Q2WK ?ARANESP/LAB EA RLY*3MO OV DUE NOV Start: 08-04-2025 End: 08-04-2025 ambulatory [facility] Comment on above: (SO)CBC(?TX)* Q2WK ?ARANESP/LAB EA RLY* Start: 08-02-2025 End: 08-02-2025 Patient encounter procedure [facility] [place] Comment on above: follow up 6 months Start: 07-29-2025 Anxiety Screening Anxiety Screening [facility] Start: 07-29-2025 Depression Screening Depression Scre ening [facility] Start: 07-25-2025 Urine microalbumin profile [facility] Start: 07-24-2025 DIABETES SCREEN DIABETES SCREEN [facility] Start: 07-21-2025 End: 07-21-2025 Patient encounter procedure 07/21/2025 1:00 PM EDT Office Visit [place] [address] 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 Cardiology Comment on above: 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) ... Start: 07-21-2025 End: 07-21-2025 ambulatory [facility] Comment on above: (SO)CBC(?TX)* Q2WK ?ARANESP/LAB EA RLY* Start: 07-11-2025 End: 07-11-2025 ambulatory [facility] Comment on above: (SO)CBC(?TX)* Q2WK ?ARANESP/LAB EA RLY* Start: 07-10-2025 Influenza vaccination Influenza Vacc ine (#1) [facility] Start: 07-09-2025 DIABETES SCREEN DIABETES SCREEN [facility] Start: 07-07-2025 End: 07-07-2025 ambulatory Hematology/Oncology Comment on above: 3 MO OV/LAB EARLY* Q2WK ?ARANESP/LAB&OV EARLY* Start: 07-07-2025 End: 07-07-2025 ambulatory 07/07/2025 9:30 AM EDT Results Only [facility] [address] [place] [address] /CBC/CMP/iron studies/erythropoietin/ B12/MMA/serum folate* [facility] Comment on above: /CBC/CMP/iron studie s/erythropoietin/B12/MMA/serum folate* Start: 07-04-2025 DIABETES SCREEN DIABETES SCREEN [facility] Start: 06-26-2025 Patient discharge [facility] Start: 06-25-2025 Oxygen therapy [facility] Start: 06-23-2025 Following clinical pathway protocol [facility] Start: 06-23-2025 Assessment of risk o f venous thromboembolism [facility] Start: 06-23-2025 Elevation of affecte d extremity [facility] Start: 06-23-2025 Incentive spirometry [facility] Start: 06-23-2025 Inhalation therapy procedure [facility] Start: 06-23-2025 Insertion of cathete r into peripheral vein [facility] Start: 06-23-2025 Providing care accor ding to standard [facility] Start: 06-23-2025 Provision of activit y privileges [facility] Start: 06-23-2025 Referral to occupati onal therapist [facility] Start: 06-23-2025 Referral to service [facility] Start: 06-23-2025 [facility] Start: 06-23-2025 Verification routine [facility] Start: 06-23-2025 Hospital admission, emergency, from emergency room, medical nature 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, unspecified acute renal failure type (HCC) Expected: 06/23/2025, Expires: 09/21/2025 [facility] Work Phone: Comment on above: Expected: 06/23/2025 , Expires: 09/21/2025 Start: 06-23-2025 End: 09-21-2025 C reactive protein [Mass/volume] in Serum or Plasma C-REACTIVE PROTEIN Lab Routine Cellulitis of left leg Expected: 06/23/2025, Expires: 09/21/2025 [facility] Comment on above: Expected: 06/23/2025 , Expires: 09/21/2025 Start: 06-23-2025 End: 09-21-2025 Erythrocyte sedimentation rate SEDIMENTATION RATE, WESTERGREN Lab Routine Cellulitis of left leg Expected: 06/23/2025, Expires: 09/21/2025 [facility] Comment on above: Expected: 06/23/2025 , Expires: 09/21/2025 Start: 06-23-2025 End: 06-23-2025 ambulatory [facility] Comment on above: (SO)CBC(?TX)* Q2WK ?ARANESP/LAB EA RLY* Start: 06-23-2025 End: 06-23-2025 Patient encounter procedure 06/23/2025 10:20 AM EDT Office Visit [facility] [place] [address] [place] [address] Ronaldo Pleitez MD [address] [place] [address] 2 day follow-up - bilateral lower leg edema [facility] [place] Comment on above: 2 day follow-up - bi lateral lower leg edema Start: 06-21-2025 End: 06-21-2025 Patient encounter procedure 06/21/2025 11:00 AM EDT Office Visit [facility] [place] [address] [place] [address] Arabella Moreno, CAKE PRESS OPERATOR HELPER.PHOTO MASK PATTERN GENERATOR [address] [place] [address] ER follow up appointment [facility] [place] Comment on above: ER follow up appoint ment Start: 06-19-2025 [facility] Start: 06-19-2025 US.doppler Lower extremity vein [facility] Start: 06-09-2025 End: 06-09-2025 ambulatory [facility] Comment on above: (SO)CBC(?TX)* Q2WK ?ARANESP/LAB EA RLY* Start: 06-05-2025 End: 06-05-2025 Patient encounter procedure 06/05/2025 2:40 PM EDT Office Visit [facility] [place] [address] [place] [address] Arabella Moreno, CAKE PRESS OPERATOR HELPER.PHOTO MASK PATTERN GENERATOR [address] [place] [address] wound recheck [facility] [place] Comment on above: wound recheck Start: 05-29-2025 End: 05-29-2025 Patient encounter procedure 05/29/2025 2:40 PM EDT Office Visit [facility] [place] [address] [place] [address] Arabella Moreno, CAKE PRESS OPERATOR HELPER.PHOTO MASK PATTERN GENERATOR [address] [place] [address] follow up skin tears [facility] Comment on above: follow up skin tears Start: 05-26-2025 End: 05-26-2025 ambulatory [facility] Comment on above: (SO)CBC(?TX)* Q2WK ?ARANESP/LAB EA RLY* Start: 05-11-2025 End: 05-11-2025 [facility] Comment on above: (SO)CBC(?TX)* Q2WK ?ARANESP/LAB EA RLY* Start: 04-28-2025 End: 04-28-2025 ambulatory [facility] Comment on above: (SO)CBC(?TX)* Q2WK ?ARANESP/LAB EA RLY* Start: 04-20-2025 End: 07-20-2025 Basic metabolic 2000 panel - Serum or Plasma BASIC METABOLIC PANEL Lab Routine Lymphedema of right lower extremity Expected: 04/20/2025, Expires: 07/20/2025 [facility] Work Phone: Comment on above: Expected: 04/20/2025 , Expires: 07/20/2025 Start: 04-14-2025 End: 04-14-2025 [facility] Comment on above: (SO)CBC(?TX)* Q2WK ?ARANESP/LAB EA RLY/AUTH EXP 05/09/25* Q2WK ?ARANESP/LAB EA RLY* Start: 04-07-2025 End: 04-07-2025 Patient encounter procedure [facility] Comment on above: bio and rc Start: 03-31-2025 End: 06-30-2025 Basic metabolic 2000 panel - Serum or Plasma BASIC METABOLIC PANEL Lab Routine Lymphedema of right lower extremity Lymphedema of both lower extremities Expected: 03/31/2025, Expires: 06/30/2025 [facility] Comment on above: Expected: 03/31/2025 , Expires: 06/30/2025 Start: 03-31-2025 End: 06-30-2025 Natriuretic peptide.B prohormone N-Terminal [Mass/volume] in Serum or Plasma NT PRO BNP Lab Routine Lymphedema of right lower extremity Lymphedema of both lower extremities Expected: 03/31/2025, Expires: 06/30/2025 [facility] Comment on above: Expected: 03/31/2025 , Expires: 06/30/2025 Start: 03-31-2025 End: 03-31-2025 ambulatory [facility] Comment on above: (SO)CBC(?TX)* Q2WK ?ARANESP/LAB EA RLY/AUTH EXP 05/09/25* 3 MO OV/LAB&INJ ROSAMARIA Y* Start: 03-28-2025 End: 03-28-2025 Patient encounter procedure 03/28/2025 2:30 PM EDT Appointment Radiology [address] [place] [address] : Lymphedema of right lower extremity [I89.0]; Lymphedema of both lower extremities [I89.0] Radiology Comment on above: : Lymphedema of righ t lower extremity [I89.0]; Lymphedema of both lower extremities [I89.0] Start: 03-17-2025 End: 03-17-2025 [facility] Comment on above: (SO)CBC(?TX)* Q2WK ?ARANESP/LAB EA RLY/AUTH EXP 05/09/25* Start: 03-12-2025 DIABETES SCREEN DIABETES SCREEN [facility] Start: 03-03-2025 End: 03-03-2025 ambulatory [facility] Comment on above: (SO)CBC(?TX)* Q2WK ?ARANESP/LAB EA RLY/AUTH EXP 05/09/25* 3 MO OV DUE END OF MARCH REF TE 01/06 FOR LABS Start: 02-27-2025 Covid-19 Vaccine (8 - Pfizer risk season) Covid-19 Vaccine (8 - Pfizer risk season) [facility] Start: 02-17-2025 End: 02-17-2025 ambulatory [facility] Comment on above: (SO)CBC(?TX)* Q2WK ?ARANESP/LAB EA RLY/AUTH EXP 05/09/25* Q2WK ?ARANESP/LAB EA RLY/AUTH EXP 05/09/25* 3 MO OV DUE END OF MARCH Start: 02-03-2025 End: 02-03-2025 ambulatory [facility] Comment on above: (SO)CBC(?TX)* Q2WK ?ARANESP/LAB EA RLY/AUTH EXP 05/09/25* Start: 01-31-2025 End: 01-31-2025 Patient encounter procedure 01/31/2025 11:00 AM EDT Office Visit [facility] [place] [address] [place] [address] Arabella Moreno, CAKE PRESS OPERATOR HELPER.PHOTO MASK PATTERN GENERATOR [address] [facility] [place] [address] Medicare Wellness [facility] [place] Comment on above: Medicare Wellness Start: 01-26-2025 End: 04-27-2025 Comprehensive metabolic 2000 panel - Serum or Plasma COMPREHENSIVE METABOLIC PANEL Lab Routine Mixed hyperlipidemia Expected: 01/26/2025, Expires: 04/27/2025 [facility] Work Phone: Comment on above: Expected: 01/26/2025 , Expires: 04/27/2025 Start: 01-26-2025 End: 04-27-2025 Lipid 1996 panel - Serum or Plasma LIPID PANEL BASIC Lab Routine Mixed hyperlipidemia Expected: 01/26/2025, Expires: 04/27/2025 [facility] Comment on above: Expected: 01/26/2025 , Expires: 04/27/2025 Start: 01-26-2025 End: 04-27-2025 Thyrotropin [Units/volume] in Serum or Plasma THYROID STIMULATING HORMONE Lab Routine Hypothyroidism, unspecified type Expected: 01/26/2025, Expires: 04/27/2025 [facility] Comment on above: Expected: 01/26/2025 , Expires: 04/27/2025 Start: 01-20-2025 End: 01-20-2025 ambulatory [facility] Comment on above: (SO)CBC(?TX)* Q2WK ?ARANESP/LAB EA RLY/AUTH EXP 05/09/25* Start: 01-10-2025 End: 01-10-2025 ambulatory Hematology/Oncology Comment on above: CBC/CMP/IRON/ERTHROP OIETIN/B12/MMA/SERUM FOLATE* 3MO OV/EARLY LABS* Start: 01-06-2025 End: 01-06-2025 ambulatory [place] [facility] Comment on above: QMO (SO) CBC(?TX) Q2WK ?ARANESP/LAB EA RLY/AUTH EXP?* (SO)CBC(?TX)/CMP(S)/ IRON STUDIES/ERYTHROPOIETIN/ Q2WK ?ARANESP/LAB EA RLY/AUTH EXP 05/09/25* 3MO OV/LAB&INJ EARLY * Start: 12-30-2024 End: 12-30-2024 Patient encounter procedure 12/30/2024 2:15 PM EST Office Visit [facility] [address] [place] [address] bio [facility] Comment on above: bio Start: 12-23-2024 End: 12-23-2024 ambulatory [place] [facility] Laboratory Comment on above: CBC Q2WK ?ARANESP/LAB EA RLY/AUTH EXP?* (SO)CBC(?TX)* Q2WK ?ARANESP/LAB EA RLY/AUTH EXP 05/09/25* Start: 12-13-2024 End: 12-13-2024 ambulatory 12/13/2024 11:00 AM EST Results [facility] [address] [place] [address] MONTHLY/(SO)CBC(?TX)* [facility] Comment on above: MONTHLY/(SO)CBC(?TX) * Start: 12-09-2024 End: 12-09-2024 [facility] Comment on above: QMO (SO) CBC(?TX) Q2WK ?ARANESP/LAB EA RLY/AUTH EXP?* (SO)CBC(?TX)* Q2WK ?ARANESP/LAB EA RLY/AUTH EXP 05/09/25* Start: 11-24-2024 End: 11-24-2024 ambulatory [place] [facility] Comment on above: CBC START Q2WK ?ARANESP/ LAB EARLY/AUTH EXP?* Start: 11-15-2024 End: 11-15-2024 ambulatory 11/15/2024 11:00 AM EST Results Only [place] [facility] [address] [place] [address] MONTHLY/(SO)CBC(?TX)ERT HROPOIETIN* [place] [facility] Comment on above: MONTHLY/(SO)CBC(?TX) ERTHROPOIETIN* Start: 11-12-2024 DIABETES SCREEN DIABETES SCREEN [facility] Start: 11-09-2024 Advance Directive Discussion Advance Directive Discussion [facility] Start: 10-11-2024 End: 10-11-2024 ambulatory [facility] Comment on above: (SO)CBC* (SO)CBC/1 MO OV* (MA SCI) (SO)CBC(?TX)* (LAB EARLY)1 MO OV* Start: 09-27-2024 End: 10-27-2025 NM Heart Perfusion W stress and W radionuclide IV NM CARDIAC PERF STRESS/PHARM Radiology Routine Coronary artery disease involving [place] coronary artery of [place] heart without angina pectoris Encounter for screening for cardiovascular disorders SOB (shortness of breath) Expected: 09/27/2024, Expires: 10/27/2025 [facility] Work Phone: Comment on above: Expected: 09/27/2024 , Expires: 10/27/2025 Start: 09-27-2024 End: 09-27-2024 Patient encounter procedure [facility] Comment on above: bio and rc Start: 09-22-2024 End: 09-22-2024 ambulatory 09/22/2024 10:00 AM EST Results Only [place] [facility] [address] [place] [address] CBC(?TX)* [facility] Comment on above: CBC(?TX)* Start: 09-15-2024 End: 12-15-2024 Cobalamin (Vitamin B12) [Mass/volume] in Serum or Plasma VITAMIN B12 Lab Routine History of anemia Expected: 09/15/2024, Expires: 12/15/2024 [facility] Work Phone: Comment on above: Expected: 09/15/2024 , Expires: 12/15/2024 Start: 09-15-2024 End: 09-15-2024 ambulatory [facility] Comment on above: (SO)CBC(?TX)/CMP(S)/ IRON STUDIES* (SO)CBC(?TX)/CMP(S)/ IRON STUDIES/3 MO OV* Start: 08-22-2024 End: 08-22-2024 ambulatory 08/22/2024 11:00 AM EDT Results [facility] [place] [facility] [address] [place] [address] (SO)CBC(?TX)* [facility] Comment on above: (SO)CBC(?TX)* Start: 08-06-2024 Hepatitis B surface antibody level LDL Cholesterol [facility] Start: 07-29-2024 End: 07-29-2024 Patient encounter procedure 07/29/2024 11:00 AM EDT Office Visit Internal Medicine [place] [address] [place] [address] Ronaldo Pleitez MD [address] [place] [address] 6 mo f/u Internal Medicine [place] Comment on above: 6 mo f/u Start: 07-24-2024 End: 10-23-2024 Lipid 1996 panel - Serum or Plasma LIPID PANEL BASIC Lab Routine Mixed hyperlipidemia Expected: 07/24/2024, Expires: 10/23/2024 [facility] Work Phone: Comment on above: Expected: 07/24/2024 , Expires: 10/23/2024 Start: 07-21-2024 End: 07-21-2024 ambulatory 07/21/2024 10:00 AM EDT Results Only [place] [facility] [address] [place] [address] (SO)CBC(?TX)* [facility] Comment on above: (SO)CBC(?TX)* Start: 07-10-2024 Covid-19 Vaccine ( season) Covid-19 Vaccine ( season) [facility] Start: 07-10-2024 Covid-19 Vaccine ( season) Covid-19 Vaccine () [facility] Start: 07-10-2024 Influenza vaccination Influenza Vacc ine (#1) [facility] Start: 06-17-2024 End: 06-17-2024 Patient encounter procedure 06/17/2024 1:15 PM EDT Office Visit [facility] [address] [place] [address] bio [facility] Comment on above: bio Start: 06-16-2024 End: 06-16-2024 ambulatory [place] [facility] Comment on above: (SO)CBC(?TX)/CMP(S)/ IRON STUDIES* (SO)CBC(?TX)/CMP(S)/ IRON STUDIES/3 MO OV* Start: 05-21-2024 End: 08-20-2024 Thyrotropin [Units/volume] in Serum or Plasma THYROID STIMULATING HORMONE Lab Routine Hypothyroidism, unspecified type Expected: 05/21/2024, Expires: 08/20/2024 [facility] Work Phone: Comment on above: Expected: 05/21/2024 , Expires: 08/20/2024 Start: 03-17-2024 End: 06-16-2024 Ferritin [Mass/volume] in Serum or Plasma FERRITIN Lab Routine 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) Macrocytic anemia Expected: 03/17/2024, Expires: 06/16/2024 [facility] Comment on above: Expected: 03/17/2024 , Expires: 06/16/2024 Start: 03-17-2024 End: 06-16-2024 Iron and Iron binding capacity panel - Serum or Plasma IRON AND TIBC Lab Routine 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) Macrocytic anemia Expected: 03/17/2024, Expires: 06/16/2024 [facility] Work Phone: Comment on above: Expected: 03/17/2024 , Expires: 06/16/2024 Start: 03-17-2024 End: 03-17-2024 ambulatory [place] [facility] Comment on above: (SO)CBC(?TX)/CMP(S)/ IRON STUDIES* (SO)CBC(?TX)/CMP(S)/ IRON STUDIES/3 MO OV* Start: 03-11-2024 Hepatitis B surface antibody level LDL CHOLESTEROL [facility] Start: 02-18-2024 End: 05-19-2024 25-hydroxyvitamin D3 [Mass/volume] in Serum or Plasma VITAMIN D 25 HYDROXY Lab Routine Vitamin D deficiency Expected: 02/18/2024, Expires: 05/19/2024 [facility] Work Phone: Comment on above: Expected: 02/18/2024 , Expires: 05/19/2024 Start: 02-18-2024 End: 05-19-2024 Cobalamin (Vitamin B12) [Mass/volume] in Serum or Plasma VITAMIN B12 BLOOD Lab Routine B12 deficiency Expected: 02/18/2024, Expires: 05/19/2024 [facility] Work Phone: Comment on above: Expected: 02/18/2024 , Expires: 05/19/2024 Start: 02-18-2024 End: 05-19-2024 Thyrotropin [Units/volume] in Serum or Plasma TSH BLD Lab Routine Hypothyroidism, unspecified type Expected: 02/18/2024, Expires: 05/19/2024 [facility] Work Phone: Comment on above: Expected: 02/18/2024 , Expires: 05/19/2024 Start: 12-24-2023 End: 03-24-2024 Ferritin [Mass/volume] in Serum or Plasma FERRITIN BLD Lab Routine 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) Expected: 12/24/2023, Expires: 03/24/2024 [facility] Work Phone: Comment on above: Expected: 12/24/2023 , Expires: 03/24/2024 Start: 12-24-2023 End: 03-24-2024 Iron and Iron binding capacity panel - Serum or Plasma IRON + TIBC Lab Routine 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) Expected: 12/24/2023, Expires: 03/24/2024 [facility] Work Phone: Comment on above: Expected: 12/24/2023 , Expires: 03/24/2024 Start: 11-09-2023 Advance Directive Discussion Advance Directive Discussion [facility] Start: 11-09-2023 Behavioral Health Screening Behavioral Health Screening [facility] Start: 11-09-2023 Depression Assessment Depression Ass essment [facility] Start: 10-07-2023 Hepatitis B surface antibody level LDL CHOLESTEROL [facility] Start: 09-17-2023 Hepatitis B surface antibody level LDL CHOLESTEROL [facility] Start: 08-23-2023 Hepatitis B surface antibody level LDL CHOLESTEROL [facility] Start: 08-08-2023 End: 10-08-2023 25-hydroxyvitamin D3 [Mass/volume] in Serum or Plasma VITAMIN D 25 HYDROXY Lab Routine Vitamin D deficiency Expected: 08/08/2023 (Approximate), Expires: 10/08/2023 [facility] Work Phone: Comment on above: Expected: 08/08/2023 (Approximate), Expires: 10/08/2023 Start: 08-08-2023 End: 10-08-2023 CBC W Auto Differential panel - Blood CBC + DIFF Lab Routine Hypotension due to drugs MDS (myelodysplastic syndrome) (HCC) Expected: 08/08/2023 (Approximate), Expires: 10/08/2023 [facility] Work Phone: Comment on above: Expected: 08/08/2023 (Approximate), Expires: 10/08/2023 Start: 08-08-2023 End: 10-08-2023 Comprehensive metabolic 2000 panel - Serum or Plasma COMP METABOLIC PANEL Lab Routine Essential hypertension, benign PAF (paroxysmal atrial fibrillation) (HCC) Vitamin D deficiency Expected: 08/08/2023 (Approximate), Expires: 10/08/2023 [facility] Work Phone: Comment on above: Expected: 08/08/2023 (Approximate), Expires: 10/08/2023 Start: 08-08-2023 End: 10-08-2023 Iron and Iron binding capacity panel - Serum or Plasma IRON + TIBC Lab Routine MDS (myelodysplastic syndrome) (HCC) Expected: 08/08/2023 (Approximate), Expires: 10/08/2023 [facility] Work Phone: Comment on above: Expected: 08/08/2023 (Approximate), Expires: 10/08/2023 Start: 08-08-2023 End: 10-08-2023 Thyrotropin [Units/volume] in Serum or Plasma TSH BLD Lab Routine Hypothyroidism, unspecified type Expected: 08/08/2023 (Approximate), Expires: 10/08/2023 [facility] Work Phone: Comment on above: Expected: 08/08/2023 (Approximate), Expires: 10/08/2023 Start: 08-08-2023 End: 10-08-2023 Thyroxine (T4) free [Mass/volume] in Serum or Plasma T4 FREE/FREE THYROX Lab Routine Hypothyroidism, unspecified type Expected: 08/08/2023 (Approximate), Expires: 10/08/2023 [facility] Work Phone: Comment on above: Expected: 08/08/2023 (Approximate), Expires: 10/08/2023 Start: 07-13-2023 End: 09-12-2023 25-hydroxyvitamin D3 [Mass/volume] in Serum or Plasma VITAMIN D 25 HYDROXY Lab Routine Vitamin D deficiency Expected: 07/13/2023, Expires: 09/12/2023 [facility] Work Phone: Comment on above: Expected: 07/13/2023 , Expires: 09/12/2023 Start: 07-13-2023 End: 09-12-2023 CBC W Auto Differential panel - Blood CBC + DIFF Lab Routine MDS (myelodysplastic syndrome) (HCC) Expected: 07/13/2023, Expires: 09/12/2023 [facility] Work Phone: Comment on above: Expected: 07/13/2023 , Expires: 09/12/2023 Start: 07-13-2023 End: 09-12-2023 Comprehensive metabolic 2000 panel - Serum or Plasma COMP METABOLIC PANEL Lab Routine PAF (paroxysmal atrial fibrillation) (HCC) Essential hypertension, benign Chronic heart failure with preserved ejection fraction (HCC) Expected: 07/13/2023, Expires: 09/12/2023 [facility] Work Phone: Comment on above: Expected: 07/13/2023 , Expires: 09/12/2023 Start: 07-13-2023 End: 09-12-2023 Lipid 1996 panel - Serum or Plasma LIPID PANEL BASIC Lab Routine Mixed hyperlipidemia Expected: 07/13/2023, Expires: 09/12/2023 [facility] Work Phone: Comment on above: Expected: 07/13/2023 , Expires: 09/12/2023 Start: 07-13-2023 End: 09-12-2023 Natriuretic peptide.B prohormone N-Terminal [Mass/volume] in Serum or Plasma NT PRO BNP Lab Routine Chronic heart failure with preserved ejection fraction (HCC) Expected: 07/13/2023, Expires: 09/12/2023 [facility] Work Phone: Comment on above: Expected: 07/13/2023 , Expires: 09/12/2023 Start: 07-13-2023 End: 09-12-2023 Thyrotropin [Units/volume] in Serum or Plasma TSH BLD Lab Routine Hypothyroidism, unspecified type Expected: 07/13/2023, Expires: 09/12/2023 [facility] Work Phone: Comment on above: Expected: 07/13/2023 , Expires: 09/12/2023 Start: 07-13-2023 End: 09-12-2023 Thyroxine (T4) free [Mass/volume] in Serum or Plasma T4 FREE/FREE THYROX Lab Routine Hypothyroidism, unspecified type Expected: 07/13/2023, Expires: 09/12/2023 [facility] Work Phone: Comment on above: Expected: 07/13/2023 , Expires: 09/12/2023 Start: 07-10-2023 Covid-19 Vaccine (6 - 2023-24 season) Covid-19 Vaccine () [facility] Start: 07-10-2023 [facility]: 07-06-2023 Hepatitis B surface antibody level LDL CHOLESTEROL [facility] Start: 07-04-2023 End: 09-03-2023 Hepatitis B virus surface Ab [Presence] in Serum HEP B SURF AB Lab Routine Immunity status testing Expected: 07/04/2023, Expires: 09/03/2023 [facility] Work Phone: Comment on above: Expected: 07/04/2023 , Expires: 09/03/2023 Start: 06-04-2023 End: 08-04-2023 Basic metabolic 2000 panel - Serum or Plasma BASIC METABOLIC PNL Lab Routine Acute on chronic diastolic congestive heart failure (HCC) Essential hypertension, benign Expected: 06/04/2023 (Approximate), Expires: 08/04/2023 [facility] Work Phone: Comment on above: Expected: 06/04/2023 (Approximate), Expires: 08/04/2023 Start: 06-02-2023 End: 08-02-2023 Basic metabolic 2000 panel - Serum or Plasma BASIC METABOLIC PNL Lab Routine Chronic heart failure with preserved ejection fraction (HCC) Essential hypertension, benign Expected: 06/02/2023 (Approximate), Expires: 08/02/2023 [facility] Work Phone: Comment on above: Expected: 06/02/2023 (Approximate), Expires: 08/02/2023 Start: 06-02-2023 End: 08-02-2023 Natriuretic peptide.B prohormone N-Terminal [Mass/volume] in Serum or Plasma NT PRO BNP Lab Routine Chronic heart failure with preserved ejection fraction (HCC) Expected: 06/02/2023 (Approximate), Expires: 08/02/2023 [facility] Work Phone: Comment on above: Expected: 06/02/2023 (Approximate), Expires: 08/02/2023 Start: 05-22-2023 Administration of bl ood product [facility] Start: 05-22-2023 [facility] Start: 05-19-2023 [facility] Start: 05-18-2023 [facility] Start: 05-18-2023 Patient discharge [facility] Start: 05-17-2023 Bacteria identified in Blood by Culture Blood Culture [facility] Start: 05-17-2023 Blood culture [facility] Start: 05-17-2023 Consultation [facility] Start: 05-14-2023 Assessment of risk o f venous thromboembolism [facility] Start: 05-14-2023 Cardiac monitoring [facility] Start: 05-14-2023 Care regimes management [facility] Start: 05-14-2023 Catheterization of vein [facility] Start: 05-14-2023 Inhalation therapy procedure [facility] Start: 05-14-2023 Insertion of cathete r into peripheral vein [facility] Start: 05-14-2023 Measuring intake and output [facility] Start: 05-14-2023 Notification of physician [facility] Start: 05-14-20[address] therapy [facility] Start: 05-14-2023 Providing care accor ding to standard [facility] Start: 05-14-2023 Provision of activit y privileges [facility] Start: 05-14-2023 Referral to occupati onal therapist [facility] Start: 05-14-2023 Referral to service [facility] Start: 05-14-2023 [facility] Start: 05-14-2023 Verification routine [facility] Start: 05-14-2023 Admission procedure [facility] Start: 05-14-2023 Bacteria identified in Blood by Culture Blood Culture [facility] Start: 05-14-2023 End: 05-14-[address] [facility] Start: 05-14-2023 End: 05-14-20[address] Blood [address] [facility] Start: 04-20-2023 End: 05-19-2024 CT BRAIN WO IVCON CT BRAIN WO IVCON Radiology STAT Unstable gait Postural dizziness Confusion and disorientation Diplopia Expected: 04/20/2023, Expires: 05/19/2024 [facility] Work Phone: Comment on above: Expected: 04/20/2023 , Expires: 05/19/2024 Start: 04-10-2023 End: 06-10-2023 25-hydroxyvitamin D3 [Mass/volume] in Serum or Plasma VITAMIN D 25 HYDROXY Lab Routine Vitamin D deficiency Expected: 04/10/2023 (Approximate), Expires: 06/10/2023 [facility] Work Phone: Comment on above: Expected: 04/10/2023 (Approximate), Expires: 06/10/2023 Start: 04-10-2023 End: 06-10-2023 Comprehensive metabolic 2000 panel - Serum or Plasma COMP METABOLIC PANEL Lab Routine Chronic heart failure with preserved ejection fraction (HCC) PAF (paroxysmal atrial fibrillation) (HCC) Essential hypertension, benign Hx of four vessel coronary artery bypass graft Mixed hyperlipidemia Expected: 04/10/2023 (Approximate), Expires: 06/10/2023 [facility] Work Phone: Comment on above: Expected: 04/10/2023 (Approximate), Expires: 06/10/2023 Start: 04-10-2023 End: 06-10-2023 Iron and Iron binding capacity panel - Serum or Plasma IRON + TIBC Lab Routine Iron deficiency Expected: 04/10/2023 (Approximate), Expires: 06/10/2023 [facility] Work Phone: Comment on above: Expected: 04/10/2023 (Approximate), Expires: 06/10/2023 Start: 04-10-2023 End: 06-10-2023 Lipid 1996 panel - Serum or Plasma LIPID PANEL BASIC Lab Routine Mixed hyperlipidemia Expected: 04/10/2023 (Approximate), Expires: 06/10/2023 [facility] Work Phone: Comment on above: Expected: 04/10/2023 (Approximate), Expires: 06/10/2023 Start: 04-10-2023 End: 06-10-2023 Natriuretic peptide.B prohormone N-Terminal [Mass/volume] in Serum or Plasma NT PRO BNP Lab Routine Chronic heart failure with preserved ejection fraction (HCC) Expected: 04/10/2023 (Approximate), Expires: 06/10/2023 [facility] Work Phone: Comment on above: Expected: 04/10/2023 (Approximate), Expires: 06/10/2023 Start: 04-10-2023 End: 06-10-2023 Thyrotropin [Units/volume] in Serum or Plasma TSH BLD Lab Routine Hypothyroidism, unspecified type Expected: 04/10/2023 (Approximate), Expires: 06/10/2023 [facility] Work Phone: Comment on above: Expected: 04/10/2023 (Approximate), Expires: 06/10/2023 Start: 04-10-2023 End: 06-10-2023 Thyroxine (T4) free [Mass/volume] in Serum or Plasma T4 FREE/FREE THYROX Lab Routine Hypothyroidism, unspecified type Expected: 04/10/2023 (Approximate), Expires: 06/10/2023 [facility] Work Phone: Comment on above: Expected: 04/10/2023 (Approximate), Expires: 06/10/2023 Start: 04-09-2023 End: 06-09-2023 Basic metabolic 2000 panel - Serum or Plasma BASIC METABOLIC PNL Lab Routine Chronic heart failure with preserved ejection fraction (HCC) Expected: 04/09/2023 (Approximate), Expires: 06/09/2023 [facility] Work Phone: Comment on above: Expected: 04/09/2023 (Approximate), Expires: 06/09/2023 Start: 04-09-2023 End: 06-09-2023 Natriuretic peptide.B prohormone N-Terminal [Mass/volume] in Serum or Plasma NT PRO BNP Lab Routine Chronic heart failure with preserved ejection fraction (HCC) Expected: 04/09/2023 (Approximate), Expires: 06/09/2023 [facility] Work Phone: Comment on above: Expected: 04/09/2023 (Approximate), Expires: 06/09/2023 Start: 03-12-2023 Hepatitis B surface antibody level LDL CHOLESTEROL [facility] Start: 11-12-2022 Hepatitis B surface antibody level LDL CHOLESTEROL [facility] Start: 11-09-2022 ADVANCE DIRECTIVE DISCUSSION ADVANCE DIRECTIVE DISCUSSION [facility] Start: 11-09-2022 DEPRESSION ASSESSMENT DEPRESSION ASS ESSMENT [facility] Start: 11-05-2022 End: 01-05-2023 CBC W Auto Differential panel - Blood CBC + DIFF Lab Routine MDS (myelodysplastic syndrome) (HCC) Expected: 11/05/2022, Expires: 01/05/2023 [facility] Work Phone: Comment on above: Expected: 11/05/2022 , Expires: 01/05/2023 Start: 11-05-2022 End: 01-05-2023 Erythropoietin (EPO) [Units/volume] in Serum or Plasma ERYTHROPOIETIN/EPO Lab Routine MDS (myelodysplastic syndrome) (HCC) Expected: 11/05/2022, Expires: 01/05/2023 [facility] Work Phone: Comment on above: Expected: 11/05/2022 , Expires: 01/05/2023 Start: 10-09-2022 End: 12-09-2022 Basic metabolic 2000 panel - Serum or Plasma BASIC METABOLIC PNL Lab Routine Complete heart block (HCC) Paroxysmal atrial fibrillation (HCC) Expected: 10/09/2022 (Approximate), Expires: 12/09/2022 [facility] Work Phone: Comment on above: Expected: 10/09/2022 (Approximate), Expires: 12/09/2022 Start: 10-09-2022 End: 12-09-2022 CBC W Auto Differential panel - Blood [facility] Work Phone: Comment on above: Expected: 10/09/2022 (Approximate), Expires: 12/09/2022 Expected: 10/09/2022 , Expires: 12/09/2022 Start: 10-09-2022 End: 12-09-2022 COPPER BLOOD COPPER BLOOD Lab Routine Macrocytic anemia Expected: 10/09/2022, Expires: 12/09/2022 [facility] Work Phone: Comment on above: Expected: 10/09/2022 , Expires: 12/09/2022 Start: 10-09-2022 End: 12-09-2022 Erythropoietin (EPO) [Units/volume] in Serum or Plasma ERYTHROPOIETIN/EPO Lab Routine Macrocytic anemia Expected: 10/09/2022, Expires: 12/09/2022 [facility] Work Phone: Comment on above: Expected: 10/09/2022 , Expires: 12/09/2022 Start: 10-09-2022 End: 12-09-2022 Iron and Iron binding capacity panel - Serum or Plasma IRON + TIBC Lab Routine Anemia, unspecified type Iron deficiency Expected: 10/09/2022 (Approximate), Expires: 12/09/2022 [facility] Work Phone: Comment on above: Expected: 10/09/2022 (Approximate), Expires: 12/09/2022 Start: 09-25-2022 End: 11-25-2022 CBC W Auto Differential panel - Blood CBC + DIFF Lab Routine Anemia, unspecified type Iron deficiency Expected: 09/25/2022 (Approximate), Expires: 11/25/2022 [facility] Work Phone: Comment on above: Expected: 09/25/2022 (Approximate), Expires: 11/25/2022 Start: 09-25-2022 End: 11-25-2022 Iron and Iron binding capacity panel - Serum or Plasma IRON + TIBC Lab Routine Anemia, unspecified type Iron deficiency Expected: 09/25/2022 (Approximate), Expires: 11/25/2022 [facility] Work Phone: Comment on above: Expected: 09/25/2022 (Approximate), Expires: 11/25/2022 Start: 09-18-2022 COVID-19 VACCINE (6 - Pfizer risk series) COVID-19 VACCINE (6 - Pfizer risk series) [facility] Start: 09-11-2022 End: 11-11-2022 25-hydroxyvitamin D3 [Mass/volume] in Serum or Plasma VITAMIN D 25 HYDROXY Lab Routine Vitamin D deficiency Expected: 09/11/2022 (Approximate), Expires: 11/11/2022 [facility] Work Phone: Comment on above: Expected: 09/11/2022 (Approximate), Expires: 11/11/2022 Start: 09-11-2022 End: 11-11-2022 CBC W Auto Differential panel - Blood CBC + DIFF Lab Routine Paroxysmal atrial fibrillation (HCC) Anemia, unspecified type 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 Expected: 09/11/2022 (Approximate), Expires: 11/11/2022 [facility] Work Phone: Comment on above: Expected: 09/11/2022 (Approximate), Expires: 11/11/2022 Start: 09-11-2022 End: 11-11-2022 Comprehensive metabolic 2000 panel - Serum or Plasma COMP METABOLIC PANEL Lab Routine Paroxysmal atrial fibrillation (HCC) Essential hypertension, benign Hx of four vessel coronary artery bypass graft Mixed hyperlipidemia Expected: 09/11/2022 (Approximate), Expires: 11/11/2022 [facility] Work Phone: Comment on above: Expected: 09/11/2022 (Approximate), Expires: 11/11/2022 Start: 09-11-2022 End: 11-11-2022 Lipid 1996 panel - Serum or Plasma LIPID PANEL BASIC Lab Routine Mixed hyperlipidemia Expected: 09/11/2022 (Approximate), Expires: 11/11/2022 [facility] Work Phone: Comment on above: Expected: 09/11/2022 (Approximate), Expires: 11/11/2022 Start: 09-11-2022 End: 11-11-2022 Natriuretic peptide.B prohormone N-Terminal [Mass/volume] in Serum or Plasma NT PRO BNP Lab Routine Hx of four vessel coronary artery bypass graft Expected: 09/11/2022 (Approximate), Expires: 11/11/2022 [facility] Work Phone: Comment on above: Expected: 09/11/2022 (Approximate), Expires: 11/11/2022 Start: 09-11-2022 End: 11-11-2022 Thyrotropin [Units/volume] in Serum or Plasma TSH BLD Lab Routine Hypothyroidism, unspecified type Expected: 09/11/2022 (Approximate), Expires: 11/11/2022 [facility] Work Phone: Comment on above: Expected: 09/11/2022 (Approximate), Expires: 11/11/2022 Start: 09-11-2022 End: 11-11-2022 Thyroxine (T4) free [Mass/volume] in Serum or Plasma T4 FREE/FREE THYROX Lab Routine Hypothyroidism, unspecified type Expected: 09/11/2022 (Approximate), Expires: 11/11/2022 [facility] Work Phone: Comment on above: Expected: 09/11/2022 (Approximate), Expires: 11/11/2022 Start: 07-10-2022 Influenza vaccination INFLUENZA (#1) [facility] Start: 05-19-2022 End: 07-19-2022 CBC W Auto Differential panel - Blood CBC + DIFF Lab Routine Anemia, unspecified type Iron deficiency Expected: 05/19/2022 (Approximate), Expires: 07/19/2022 [facility] Work Phone: Comment on above: Expected: 05/19/2022 (Approximate), Expires: 07/19/2022 Start: 05-19-2022 End: 07-19-2022 IRON + TIBC IRON + TIBC Lab Routine Anemia, unspecified type Iron deficiency Expected: 05/19/2022, Expires: 07/19/2022 [facility] Work Phone: Comment on above: Expected: 05/19/2022 , Expires: 07/19/2022 Start: 04-23-2022 End: 06-23-2022 CBC W Auto Differential panel - Blood CBC + DIFF Lab Routine Anemia, unspecified type Expected: 04/23/2022, Expires: 06/23/2022 [facility] Work Phone: Comment on above: Expected: 04/23/2022 , Expires: 06/23/2022 Start: 04-23-2022 End: 06-23-2022 FERRITIN BLD FERRITIN BLD Lab Routine Anemia, unspecified type Expected: 04/23/2022, Expires: 06/23/2022 [facility] Work Phone: Comment on above: Expected: 04/23/2022 , Expires: 06/23/2022 Start: 04-23-2022 End: 06-23-2022 IRON + TIBC IRON + TIBC Lab Routine Anemia, unspecified type Expected: 04/23/2022, Expires: 06/23/2022 [facility] Work Phone: Comment on above: Expected: 04/23/2022 , Expires: 06/23/2022 Start: 04-01-2022 End: 06-01-2022 FERRITIN BLD FERRITIN BLD Lab Routine Anemia, unspecified type Iron deficiency Expected: 04/01/2022 (Approximate), Expires: 06/01/2022 [facility] Work Phone: Comment on above: Expected: 04/01/2022 (Approximate), Expires: 06/01/2022 Start: 04-01-2022 End: 06-01-2022 IRON + TIBC IRON + TIBC Lab Routine Anemia, unspecified type Iron deficiency Expected: 04/01/2022 (Approximate), Expires: 06/01/2022 [facility] Work Phone: Comment on above: Expected: 04/01/2022 (Approximate), Expires: 06/01/2022 Start: 04-01-2022 End: 06-01-2022 VITAMIN B12 BLOOD VITAMIN B12 BLOOD Lab Routine Macrocytosis Expected: 04/01/2022 (Approximate), Expires: 06/01/2022 [facility] Work Phone: Comment on above: Expected: 04/01/2022 (Approximate), Expires: 06/01/2022 Start: 12-21-2021 COVID-19 VACCINE (4 - Booster for Pfizer series) COVID-19 VACCINE (4 - Booster for Pfizer series) [facility] Start: 11-09-2021 ADVANCE DIRECTIVE DISCUSSION ADVANCE DIRECTIVE DISCUSSION [facility] Start: 11-09-2021 DEPRESSION ASSESSMENT DEPRESSION ASS ESSMENT [facility] Start: 09-28-2020 End: 09-28-2020 Appointment Appointment [facility] Work Phone: Start: 09-28-2020 End: 09-28-2020 Radex ankle complete minimum 3 views XR ANKLE 3 VWS-RT [facility] Work Phone: Start: 2010 RSV Vaccine (1 - 1-d ose 75+ series) RSV Vaccine (1 - 1-dose 75+ series) [facility] Start: 1995 RSV Vaccine (1 - 1-d ose 60+ series) RSV Vaccine (1 - 1-dose 60+ series) [facility] Start: 1953 Anxiety Screening Anxiety Screening [facility] Start: 1953 Depression Screening Depression Scre ening [facility] Anion gap in Serum o r Plasma [facility] Bilirubin measuremen t, urine [facility] BONE MARROW ANALYSIS BONE MARROW ANALYSIS Lab Routine Macrocytic anemia 10/24/2022 12:31 PM EST [facility] Work Phone: BONE MARROW CHROMOSO ME ANAL BONE MARROW CHROMOSOME ANAL Lab Routine Macrocytic anemia Ordered: 10/24/2022 [facility] Work Phone: Comment on above: Ordered: 10/24/2022 BUN/Creatinine ratio [facility] Calcium [Mass/volume ] in Serum or Plasma [facility] Carbon dioxide, tota l [Moles/volume] in Central venous blood 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) Every 3 weeks for 6 Occurrences starting 03/09/2023 until 03/08/2024, 1 completed [facility] [employer] Work Phone: Comment on above: Every 3 weeks for 6 Occurrences starting 03/09/2023 until 03/08/2024, 1 completed CHROM ANAL W RFX MDS FISH CHROM ANAL W RFX MDS FISH Lab Routine Macrocytic anemia 10/24/2022 12:31 PM EST [facility] [employer] Work Phone: End: 12-12-2023 Comprehensive metabolic 2000 panel - Serum or Plasma COMP METABOLIC PANEL Lab STAT 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) 4 Occurrences starting 12/12/2022 until 12/12/2023, 1 completed [employer] Work Phone: Comment on above: 4 Occurrences starti ng 12/12/2022 until 12/12/2023, 1 completed End: 03-07-2024 Comprehensive metabolic 2000 panel - Serum or Plasma COMP METABOLIC PANEL Lab STAT 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 Diagnostic bone bonnie ow biopsies IMAGING GUIDED BIOPSY BONE MARROW (HEMATOLOGY) Radiology Routine Macrocytic anemia Ordered: 10/09/2022 [facility] Work Phone: Comment on above: Ordered: 10/09/2022 Digoxin [Mass/volume ] in Serum or Plasma 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) Ischemic cardiomyopathy 1 Occurrences starting 07/07/2025 until 07/07/2026 [facility] Comment on above: 1 Occurrences starti ng 07/07/2025 until 07/07/2026 End: 07-07-2026 Echocardiography ECHO Cardiology Routine 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 Hemoglobin [Presence ] in Urine [facility] Hemoglobin.rosario munguia alHenriettalower [Presence] in Stool by Immunoassay FECAL OCCULT BLOOD TEST Lab Routine Anemia, unspecified type Iron deficiency Macrocytosis Ordered: 03/18/2022 [facility] Work Phone: Comment on above: Ordered: 03/18/2022 Hepb vaccine adult 3 dose schedule for im use HEP B VACCINE, 3-DOSE, AGE 20+ YR (ENGERIX-B, RECOMBIVAX HB) Immunization/Injection Routine Need for hepatitis B booster vaccination Ordered: 05/06/2023 [facility] Work Phone: Comment on above: Ordered: 05/06/2023 Lactic acid measurement [facility] Measurement of keton es in urine using dipstick [facility] Measurement of renal function [facility] Microscopic urinalysis [facility] End: 06-07-2023 Mri spinal canal lumbar w/o contrast material MRI LUMBAR SPINE WO [facility]CON Radiology Routine Spinal stenosis of lumbar region with neurogenic claudication 1 Occurrences starting 05/08/2022 until 06/07/2023 [facility] Work Phone: Comment on above: 1 Occurrences starti ng 05/08/2022 until 06/07/2023 Mri spinal canal lum bar w/o contrast material MRI LUMBAR SPINE WO [facility] Radiology Routine Spinal stenosis of lumbar region with neurogenic claudication 05/26/2022 3:45 PM EDT [facility] Work Phone: MYELOID NGS PANEL LUIS NE MARROW MYELOID NGS PANEL BONE MARROW Lab Routine Macrocytic anemia 10/24/2022 12:31 PM EST [facility] Work Phone: MYELOID NGS PANEL LUIS NE MARROW MYELOID NGS PANEL BONE MARROW Lab Routine Macrocytic anemia 10/24/2022 12:31 PM EST [facility] Work Phone: Patient Education Cellulitis Dc [facility] Work Phone: Patient referral [facility] Work Phone: pH of Urine [facility] Potassium measurement [facility] PT PLAN OF CARE CERTIFICATION PT PLAN OF CARE CERTIFICATION Procedures Routine 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 Sodium measurement [facility] Specific gravity of Urine [facility] Urea nitrogen [Mass/volume] in Serum or Plasma [facility] Urinalysis, blood, qualitative [facility] Urine dipstick for glucose [facility] Urine dipstick for leukocyte esterase [facility] Urine dipstick for nitrite [facility] Urine dipstick for protein [facility] Urine examination [facility] Urine microscopy: epithelial cells [facility] Urine Microscopy: wh ite cells [facility] Urobilinogen [Presen ce] in Urine 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) Arm swelling 1 Occurrences starting 05/05/2023 until 05/05/2024 [facility] Work Phone: Comment on above: 1 Occurrences starti ng 05/05/2023 until 05/05/2024 End: 04-23-2024 US DVT LOWER BILATERAL US DVT LOWER BILATERAL Radiology STAT Traumatic ecchymosis of foot, right, initial encounter Bilateral calf pain Venous stasis of both lower extremities 1 Occurrences starting 03/25/2023 until 04/23/2024 [facility] Work Phone: Comment on above: 1 Occurrences starti ng 03/25/2023 until 04/23/2024 End: 06-12-2024 US DVT LOWER RIGHT US DVT LOWER RIGHT Radiology STAT Right leg pain 1 Occurrences starting 05/14/2023 until 06/12/2024 [facility] Work Phone: Comment on above: 1 Occurrences starti ng 05/14/2023 until 06/12/2024 End: 04-26-2026 US Lower extremity vein - bilateral US DVT LOWER BILATERAL Radiology STAT Lymphedema of right lower extremity Lymphedema of both lower extremities 1 Occurrences starting 03/27/2025 until 04/26/2026 [facility] Work Phone: Comment on above: 1 Occurrences starti ng 03/27/2025 until 04/26/2026 End: 02-20-2025 XR Chest PA and Lateral XR CHEST 2V FRONTAL/LAT Radiology Routine Chronic heart failure with preserved ejection fraction (HCC) 1 Occurrences starting 01/22/2024 until 02/20/2025 [facility] Work Phone: Comment on above: 1 Occurrences starti ng 01/22/2024 until 02/20/2025 XR Chest PA and Lateral XR CHEST 2V FRONTAL/LAT Radiology Routine Chronic heart failure with preserved ejection fraction (HCC) 01/22/2024 12:19 PM EDT [facility] Work Phone: End: 01-21-2025 XR Elbow - right AP and Lateral and oblique XR ELBOW SPECIAL VIEWS AP/LAT/OTHER RIGHT Radiology Routine Right elbow pain Monoarthritis of elbow, right 1 Occurrences starting 12/23/2023 until 01/21/2025 [facility] Work Phone: Comment on above: 1 Occurrences starti ng 12/23/2023 until 01/21/2025 XR Elbow - right AP and Lateral and oblique XR ELBOW SPECIAL VIEWS AP/LAT/OTHER RIGHT Radiology Routine Right elbow pain Monoarthritis of elbow, right 12/23/2023 12:39 PM EST [facility] Work Phone: End: 06-28-2023 XR KNEE LIMITED 2V AP/LAT RIGHT XR KNEE LIMITED 2V AP/LAT RIGHT Radiology Routine Pes anserine bursitis Acute pain of right knee 1 Occurrences starting 05/29/2022 until 06/28/2023 [facility] Work Phone: Comment on above: 1 Occurrences starti ng 05/29/2022 until 06/28/2023 [facility] MR EP Lab [facility] Immunizations Immunization Date Immunization Notes Care Provider Mandy florian 08-29-2024 COVID-19 vaccine, ag e 12+ yr (PFIZER-BIONTECH COMIRNATY) Arabella Moreno CAKE PRESS OPERATOR HELPER.PHOTO MASK PATTERN GENERATOR Work Phone: [facility] 08-22-2024 Seasonal trivalent influenza vaccine, adjuvanted, preservative free Arabella Moreno CAKE PRESS OPERATOR HELPER.PHOTO MASK PATTERN GENERATOR Work Phone: [facility] 08-22-2024 influenza virus vaccine, unspecified formulation Injection Wstr Work Phone: [facility] 09-22-2023 COVID-19 vaccine, ag e 12+ yr (PFIZER-BIONTECH COMIRNATY) Arabella Moreno CAKE PRESS OPERATOR HELPER.PHOTO MASK PATTERN GENERATOR Work Phone: [facility] 07-24-2023 influenza (HD-IIV4) vaccine, age 65+ yr, high dose, quadrivalent, PF (FLUZONE HIGH-DOSE) Arabellajudie Bates CAKE PRESS OPERATOR HELPER.PHOTO MASK PATTERN GENERATOR Work Phone: [facility] 07-24-2023 influenza virus vaccine, unspecified formulation Ginna Em RN Work Phone: [facility] 07-24-2022 COVID-19 vaccine, ag e 12+ yr, bivalent booster (PFIZER-BIONTECH) Israel Pruitt DO Work Phone: [facility] 07-24-2022 influenza, high-dose , quadrivalent vaccine (FLUZONE HIGH DOSE QUADRIVALENT) Israel Pruitt DO Work Phone: [facility] 07-24-2022 influenza virus vaccine, unspecified formulation Iram Johnson CAKE PRESS OPERATOR HELPER.PHOTO MASK PATTERN GENERATOR Work Phone: [facility] 05-19-2022 COVID-19 original vaccine, age 12+ yr, monovalent (PFIZER-BIONTECH - GEE TOP) Israel Pruitt DO Work Phone: [facility] 05-19-2022 COVID-19 vaccine, ag e 12+ yr (PFIZER-BIONTECH - PURPLE TOP) Israel Pruitt DO Work Phone: [facility] Work Phone: 08-20-2021 COVID-19 vaccine, ag e 12+ yr (PFIZER-BIONTECH - PURPLE TOP) Iram Johnson CAKE PRESS OPERATOR HELPER.PHOTO MASK PATTERN GENERATOR Work Phone: [facility] 08-09-2021 influenza, high-dose , quadrivalent vaccine (FLUZONE HIGH DOSE QUADRIVALENT) Iram Johnson CAKE PRESS OPERATOR HELPER.PHOTO MASK PATTERN GENERATOR Work Phone: [facility] 12-25-2020 COVID-19 vaccine, ag e 12+ yr (PFIZER-BIONTECH - PURPLE TOP) Iram Johnson CAKE PRESS OPERATOR HELPER.PHOTO MASK PATTERN GENERATOR Work Phone: [facility] 12-04-2020 COVID-19 vaccine, ag e 12+ yr (PFIZER-BIONTECH - PURPLE TOP) Iram Johnson CAKE PRESS OPERATOR HELPER.PHOTO MASK PATTERN GENERATOR Work Phone: [facility] 10-10-2020 influenza, high dose seasonal, preservative-free Iram Johnson CAKE PRESS OPERATOR HELPER.PHOTO MASK PATTERN GENERATOR Work Phone: [facility] Work Phone: 07-05-2020 zoster vaccine recombinant Iram Johnson CAKE PRESS OPERATOR HELPER.PHOTO MASK PATTERN GENERATOR Work Phone: [facility] 05-04-2020 zoster vaccine recombinant Iram Johnson CAKE PRESS OPERATOR HELPER.PHOTO MASK PATTERN GENERATOR Work Phone: [facility] 08-24-2019 influenza, high dose seasonal, preservative-free Iram Johnson CAKE PRESS OPERATOR HELPER.PHOTO MASK PATTERN GENERATOR Work Phone: [facility] Work Phone: 09-16-2018 influenza, high dose seasonal, preservative-free Iram Johnson CAKE PRESS OPERATOR HELPER.PHOTO MASK PATTERN GENERATOR Work Phone: [facility] 08-25-2017 influenza, high dose seasonal, preservative-free Iram Johnson CAKE PRESS OPERATOR HELPER.PHOTO MASK PATTERN GENERATOR Work Phone: [facility] 08-11-2016 influenza, high dose seasonal, preservative-free Iram Johnson CAKE PRESS OPERATOR HELPER.PHOTO MASK PATTERN GENERATOR Work Phone: [facility] 10-03-2015 influenza, seasonal, injectable Iram Johnson CAKE PRESS OPERATOR HELPER.PHOTO MASK PATTERN GENERATOR Work Phone: [facility] 07-25-2015 tetanus toxoid, redu jfef diphtheria toxoid, and acellular pertussis vaccine, adsorbed Iram Johnson CAKE PRESS OPERATOR HELPER.PHOTO MASK PATTERN GENERATOR Work Phone: [facility] 01-02-2015 pneumococcal conjuga te vaccine, 13 valent Iram Johnson CAKE PRESS OPERATOR HELPER.PHOTO MASK PATTERN GENERATOR Work Phone: [facility] 09-07-2014 influenza, seasonal, injectable Iram Johnson CAKE PRESS OPERATOR HELPER.PHOTO MASK PATTERN GENERATOR Work Phone: [facility] 08-17-2012 influenza virus vaccine, unspecified formulation Iram Johnson CAKE PRESS OPERATOR HELPER.PHOTO MASK PATTERN GENERATOR Work Phone: [facility] 08-19-2011 influenza virus vaccine, unspecified formulation Iram Johnson CAKE PRESS OPERATOR HELPER.PHOTO MASK PATTERN GENERATOR Work Phone: [facility] 08-13-2010 influenza virus vaccine, unspecified formulation Iram Johnson CAKE PRESS OPERATOR HELPER.PHOTO MASK PATTERN GENERATOR Work Phone: [facility] Work Phone: 08-01-2009 influenza virus vaccine, unspecified formulation Iram Johnson CAKE PRESS OPERATOR HELPER.PHOTO MASK PATTERN GENERATOR Work Phone: [facility] 11-20-2008 zoster vaccine, live Iram ascencio CAKE PRESS OPERATOR HELPER.PHOTO MASK PATTERN GENERATOR Work Phone: [facility] Work Phone: 10-03-2008 influenza virus vaccine, whole virus Iram Johnson CAKE PRESS OPERATOR HELPER.PHOTO MASK PATTERN GENERATOR Work Phone: [facility] 09-21-2007 influenza virus vaccine, whole virus Iram Johnson CAKE PRESS OPERATOR HELPER.PHOTO MASK PATTERN GENERATOR Work Phone: [facility] 02-07-2005 tetanus and diphther ia toxoids, adsorbed, preservative free, for adult use (2 Lf of tetanus toxoid and 2 Lf of diphtheria toxoid) Iram Johnson CAKE PRESS OPERATOR HELPER.PHOTO MASK PATTERN GENERATOR Work Phone: [facility] 09-08-2001 pneumococcal polysaccharide vaccine, 23 valent Iram Johnson CAKE PRESS OPERATOR HELPER.PHOTO MASK PATTERN GENERATOR Work Phone: [facility] 11-27-1999 hepatitis A vaccine, unspecified formulation Iram Johnson CAKE PRESS OPERATOR HELPER.PHOTO MASK PATTERN GENERATOR Work Phone: [facility] 11-27-1999 hepatitis B vaccine, adult dosage Iram Johnson CAKE PRESS OPERATOR HELPER.PHOTO MASK PATTERN GENERATOR Work Phone: [facility] 05-17-1999 hepatitis B vaccine, adult dosage Iram Johnson CAKE PRESS OPERATOR HELPER.PHOTO MASK PATTERN GENERATOR Work Phone: [facility] 04-10-1999 hepatitis A vaccine, unspecified formulation Iram Johnson CAKE PRESS OPERATOR HELPER.PHOTO MASK PATTERN GENERATOR Work Phone: [facility] 04-10-1999 hepatitis B vaccine, adult dosage Iram Johnson CAKE PRESS OPERATOR HELPER.PHOTO MASK PATTERN GENERATOR Work Phone: [facility] Payers Date Payer Category Payer Self-pay 2023 Medicare (Managed Care) [facility] [id number] 2023 Unknown [facility] MEDICARE ADVANTAGE O [id number] 2023-Present [phone] [address] [place] [address] [facility] [id number] 2023 Medicare [id number] 2020 Medicare UHC AARP MEDICAR E [facility] AAR MEDICARE O [id number] 2020-Present [phone] [address] [address] [place] [address] O [id number] 2000 Medicare [id number] 2000 Medicare [id number] Medicare [id number] Unknown [facility] [id number] Unknown [id number] Unknown [id number] Unknown [id number] Unknown [id number] Unknown [id number] Unknown [id number] Unknown [id number] Unknown [id number] Unknown [id number] Unknown [id number] Unknown [id number] Social History Date Type Detail Facility Start: 05-14-2023 End: 05-14-2023 Assertion Unknown if ever smoked [facility] Work Phone: Start: 08-19-2011 End: 09-27-2024 Tobacco smoking status NHIS Ex-smoker [facility] End: 08-11-1989 History of tobacco use Current smoker [facility] Start: 12-10-2021 End: 07-14-2025 Alcohol intake Current drinker of alcohol (finding) [facility] Start: 12-10-2021 End: 04-14-2023 Alcohol intake [facility] Start: 07-18-2020 End: 12-10-2022 History SDOH Alcohol Frequency 5 [facility] Start: 07-18-2020 End: 12-10-2022 History SDOH Alcohol Std Drinks 1 [facility] Start: 08-04-2012 History SDOH Alcohol Comment 1-2 beers per week [facility] Start: 07-18-2020 End: 12-10-2022 History SDOH Social Connections Get Together 2 [facility] Start: 07-18-2020 End: 12-10-2022 History SDOH Social Connections Mosque 3 [facility] Start: 07-18-2020 End: 12-10-2022 History SDOH Physical Activity MPS 4 [facility] Start: 11-07-2019 Education 18 [facility] Start: 1935 Sex Assigned At Male [facility] Start: 02-16-2022 End: 10-06-2022 Exposure to SARS-CoV-2 (event) Not sure [facility] End: 08-11-1989 History of tobacco use Cigarette Smoker [facility] Start: 08-19-2011 End: 09-27-2024 Tobacco use and exposure Smokeless tobacco non-user [facility] Start: 07-17-2022 Tobacco Comment quit 18-19 years ago [facility] Start: 12-10-2022 History SDOH Social Connections Living 8 [facility] Start: 03-27-2023 None [facility] [facility] Start: 03-27-2023 Non-smoker [facility] Start: 12-09-2022 End: 04-14-2023 Social connection and isolation panel [facility] Do you belong to any clubs or organizations such as islam groups, unions, fraternal or athletic groups, or school groups? Yes [facility] Are you now , , , , never or living with a partner? Living with partner [facility] How often to you hav e a drink containing alcohol? 2-4 times a month [facility] How many standard dr inks containing alcohol do you have on a typical day? 1 or 2 [facility] How often do you hav e 6 or more drinks on 1 occasion? Never [facility] Start: 10-10-2012 How hard is it for you to pay for the very basics like food, housing, medical care, and heating Not hard at all [facility] Do you feel stress - tense, restless, nervous, or anxious, or unable to sleep at night because your mind is troubled all the time - these days [OSQ] To some extent [facility] (I/We) worried wheth er (my/our) food would run out before (I/we) got money to buy more. Never true [facility] In the past 12 month s, was there a time when you were not able to pay the mortgage or rent on time? No [facility] Start: 03-12-2019 Gender identity Identifies as male gender (finding) [facility] Start: 03-12-2019 Sexual orientation Heterosexual (finding) [facility] Start: 06-16-2023 End: 12-23-2023 Alcohol intake Ex-drinker (finding) [facility] Start: 06-12-2023 Alcohol Comment rare glass of wine. [facility] Start: 06-16-2024 Alcohol Comment occ [facility] History of tobacco use Passive smoker [facility] How often to you hav e a drink containing alcohol? Monthly or less [facility] Medical Equipment Procedure Code Equipment Code Equipment Origin al Text Equipment Identifier Dates Manny Bn Smpx P Speedset Fd [facility] - [id number] Start: 12-12-2014 Standard Humeral Head [id number] Start: 12-12-2014 Comp Paras 48mm G b Adv Anchr - [id number] Start: 12-12-2014 Stem Hum 14mm Gl ob Ap Shldr - [id number] Start: 12-12-2014 Assemb Tapr Glob Ap 135d Shldr - [id number] Start: 12-12-2014 Bobbyri Guy 8 Adriana [id number] Start: 09-17-2022 Adair Pena 53 [id number] Start: 09-17-2022 Comment on above: Description: Atrial lead Dual Pacer Biotronik- 2 [id number] Start: 09-17-2022 Comment on above: Description: 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 Initial Dual Pacer Implant. Catheter Powerpo rt Chronoflex 6fr 60cm Central Venous Without Suture Plug - [id number] Start: 12-05-2022 Ra Lead Biotronik- 2 [...] [place]. This is the name the [place] [employer] uses for: 1. Breads, rolls, [...] as ketchup INstructed on and sent in [employer] message. Ginna Em RN July 05, 2024 [...] orders. Functional Status Date Assessment Result Facility 06-26-2025 Functional status Ambulates;Red r;Bathroom Privilege [facility] Work Phone: 01-31-2025 Total score [AUDIT-C] 1 02/01/20 11:11 AM EDT Bird [facility] 05-18-2023 Functional status Ambulates;Chair [facility] Work Phone: 09-18-2022 Are you deaf, or do you have serious difficulty hearing No 09/18/2022 7:23 PM Citlalli Abarca, JESSY No [facility] 09-18-2022 Are you blind, or do you have serious difficulty seeing, even when wearing glasses No 09/18/2022 7:23 PM Citlalli Abarca, JESSY No [facility] 09-18-2022 Do you have serious difficulty walking or climbing stairs No 09/18/2022 7:06 PM Citlalli Abarca, JESSY No [facility] 09-18-2022 Do you have difficul ty dressing or bathing No 09/18/2022 7:06 PM Citlalli Abarca, JESSY No [facility] 09-18-2022 Because of a physica l, mental, or emotional condition, do you have difficulty doing errands alone such as visiting a physician's office or shopping No 09/18/2022 7:06 PM Citlalli Abarca, RN No [facility] Mental Status Date Assessment Result Facility 06-26-2025 Cognitive function Voice/Name [facility] Work Phone: 06-18-2025 Cognitive function Level Of Cons ciousness Awake;Alert;Appropriate;Fol lows Commands [facility] Work Phone: 05-22-2023 Cognitive function Awake;Alert;A ppropriate;Fol lows Commands [facility] Work Phone: 05-18-2023 Cognitive function Voice/Name [facility] Work Phone: 05-14-2023 Cognitive function Level Of Cons ciousness Awake;Alert;Appropriate;Fol lows Commands [facility] Work Phone: 09-18-2022 Because of a physica l, mental, or emotional condition, do you have serious difficulty concentrating, remembering, or making decisions No 09/18/2022 7:06 PM EST Citlalli Scanlon, JESSY [facility] Clinical Notes 12-14-2012 to 07-25-2025 Codie Summers RN - 07/14/2025 3:35 PM Esha Douglas LPN - 07/07/2025 10:54 AM Baljinder Mcclelland DO - 07/07/2025 10:10 AM Mary Ann Olivares RN - 06/30/2025 9:54 AM EDT Note Date & Type Note Facility 07-25-2025 Note HNO ID: [id number] Author: TARA HOROWITZ RN Service: Care Management Author Type: Registered Nurse Type: Care Mgt Progress Note Filed: 07/25/2025 10:13 Note Text: CARE MANAGEMENT PROGRESS NOTE SERVICE DATE: 07/25/2025 SERVICE TIME: 944 LOS: 12 days IMM Follow Up Copy Given: Yes Copy given to:: Patient Method: In Person SIGNATURE: Tara Horowitz RN PATIENT NAME: Srini Luis DATE: July 25, 2025 TIME: 10:13 AM [facility] 07-25-2025 Note HNO ID: [id number] Author: TARA HOROWITZ RN Service: Care Management Author Type: Registered Nurse Type: Care Mgt Progress Note Filed: 07/25/2025 09:28 Note Text: CARE MANAGEMENT DISCHARGE NOTE SERVICE DATE: July 25, 2025 SERVICE TIME: 9:27 AM Admission Date: 07/13/2025 LOS: 12 days Discharge Arrangement Discharge Arrangement: Nursing Home Facility Was an expedited discharge program used?: No Services Arranged SNF Provider Name: [facility] Caregiver Assessment Caregiver is ready, willing and able to meet the patient's needs as recommended by the inter-professional team: Yes Name of Caregiver: facility staff Transportation Arrangements Transportation Arrangements: Ambulance Transportation Agency and Phone #:: Gretchen [employer] [phone] Date of Trip: 07/25/25 Time of Trip: 1600 Type of Service: BLS Non-emergency Is Patient Medicaid Pending?: No Was transportation financial coverage discussed with family?: Patient, POA Eyelet Row Marker Location: [facility] Destination: [facility] Financial Care Management Responsibility: None Handoff Communication: Handoff to: Administrative Law Judge, Other Caregiver Administrative Law Judge Name/Phone: ronaldo pleitez Other Caregiver Name/Phone: Myla provided Additional Information: NA Discharge Information Row Name ED to Hosp-Admission (Current) from 07/13/2025 in [facility] Facility Agency [facility] Patient discharging to [facility] this date. Auth approved through 07/15. Transport 4pm via [employer] cot and patient and daughter notified of potential OOP cost. Dc packet on chart with post acute checklist. Passr done. CM following for transition of care. SIGNATURE: Tara Horowitz RN PATIENT NAME: Srini Luis DATE: July 25, 2025 TIME: 9:27 AM [facility] 07-24-2025 Note HNO ID: [id number] Author: YARITZA NELSON LSW Service: Care Management Author Type: Learning And Development Coordinator Type: Care Mgt Progress Note Filed: 07/24/2025 14:51 Note Text: CARE MANAGEMENT PROGRESS NOTE SERVICE DATE: 07/24/2025 SERVICE TIME: 2:48 PM LOS: 11 days Chart reviewed. Patient admitted from home alone for sepsis, LLE cellulitis, CHF exacerbation. ATB discontinued. Cardio consulted. Patient on 2L NC, s/p LHC 07/17. Lifevest ordered. Pending cardio clearance. Patient A/Ox3, daughter, liza, bedside. Patient functionally independent, ambulatory with cane in the apartment, electric scooter for outings if needed. Family has privately hired [employer] through [facility] to assist in care and IADLs as needed. Patient resides in long-term apartment with all handicap accessible components. Patient current with PCP listed on file Therapy recommending snf. Patient and daughter agreeable. FOC is [facility] who is accepting. Auth approved through 07/25. Passr done. Dc packet on chart with post acute checklist. AMB form done for cot transport needed. Plan snf pending cardio clearance. Cot transport needed if still on o2. CM will follow for transition of care. SIGNATURE: ARTEM Lynne PATIENT NAME: Srini Luis DATE: July 24, 2025 TIME: 2:48 PM [facility] 07-24-2025 Note HNO ID: [id number] Author: CARLEY KEYES MD Service: General Internal Medicine Author Type: Physician Type: Progress Notes Filed: 07/24/2025 14:06 Note Text: INPATIENT PROGRESS NOTE SERVICE DATE: 07/24/2025 SERVICE TIME: 2:05 PM PRIMARY SERVICE: Hospital Medicine Subjective Fluid status appears to be improving Blood pressure in the 110s, heart rate in 90s this morning Current Facility-Administered Medications Medication Dose Route Frequency NaCl 0.9% iv flush bag 20 mL INTRAVENOUS PRN aluminum-magnesium hydroxide-simethicone 200-200-20 mg/5 mL 30 mL 30 mL ORAL DAILY PRN ondansetron 4 mg tab(s) (ZOFRAN) 4 mg ORAL q 6 H PRN Or ondansetron (PF) 4 mg injection (ZOFRAN) 4 mg INTRAVENOUS q 6 H PRN polyethylene glycol 3350 17 g packet 17 g ORAL DAILY PRN acetaminophen 650 mg tab(s) (TYLENOL) 650 mg ORAL q 6 H PRN HYDROcodone 5 mg - acetaminophen 325 mg tablet (NORCO) 1 tablet ORAL q [address] 40 mg tab(s) (PROTONIX) 40 mg ORAL DAILY (6 AM) multivitamin-ferrous fumarate-folic acid 1 tablet (CENTRUM) 1 tablet ORAL DAILY cyanocobalamin 1,000 mcg tab(s) (VITAMIN B-12) 1,000 mcg ORAL DAILY folic acid 1 mg tab(s) 1 mg ORAL DAILY atorvastatin 20 mg tab(s) (LIPITOR) 20 mg ORAL DAILY levothyroxine 100 mcg tab(s) (SYNTHROID) 100 mcg ORAL DAILY aspirin 81 mg chewable tab(s) 81 mg ORAL DAILY miconazole 2 % 1 application topical powder 1 application TOPICAL BID nitroglycerin sublingual 0.4 mg tab(s) (NITROQUICK) 0.4 mg SUBLINGUAL q 5 MIN PRN empagliflozin 10 mg tab(s) (JARDIANCE) 10 mg ORAL DAILY melatonin 6 mg tab(s) 6 mg ORAL AT BEDTIME PRN menthol 4 % topical gel (BIOFREEZE) TOPICAL TID PRN furosemide 40 mg injection (LASIX) 40 mg INTRAVENOUS TID rivaroxaban 20 mg tab(s) (XARELTO) 20 mg ORAL DAILY wDINNER spironolactone 12.5 mg tab(s) (ALDACTONE) 12.5 mg ORAL DAILY losartan 12.5 mg tab(s) (COZAAR) 12.5 mg ORAL DAILY Objective PHYSICAL EXAM: BP 114/59 Pulse 91 Temp (Src) 97.5 (Oral) Resp 18 Ht 5' 6 (1.68m) Wt 182 lb 12.2 oz (82.9kg) SpO2 90% BMI 29.51 kg/(m2). O2 Therapy: Nasal Cannula, Liters (Numeric Only): 2.0 General: Not in acute distress CVS: S1-S2 normal, no murmur, No JVD RS: Clear to auscultation bilaterally Abdomen: Soft, nontender, no organomegaly Musculoskeletal: +2 upper extremity edema bilaterally +1 bilateral lower extremity pedal edema Neuro: AO x3, No focal deficits Psy: Cooperative, No anxiety/depression DATA: LABORATORY TESTS: CBC: Recent Labs 07/24/25 0507 07/23/25 0749 07/22/25 0528 WBC 6.69 5.40 7.43 HB 10.2* 9.7* 10.1* PLT 208 186 204 MCV 107.6* 108.0* 108.3* CHEM: Recent Labs 07/24/25 0950 07/22/25 0527 07/21/25 0644 07/20/25 1133 07/19/25 1136 NA 139 139 140 139 140 K 4.5 4.2 4.8 5.0 4.4 CA 8.6 8.4* 8.7 9.0 8.8 MG -- -- -- 2.4 2.4 ANION 7 6 8 6 13 CHLOR 95* 96* 98 97* 99 CO2 37* 37* 34* 36* 28 GLUC 150* 102* 101* 107* 116* BUN 46* 34* 33* 31* 21 CREAT 1.16 1.19 1.16 1.11 1.00 HEPATIC: No results for input(s): ALT, AST, TBILI, ALKPHOS, ALB, TPROT, LIPASE in the last 168 hours. URINALYSIS: No results for input(s): SPGR, UBACTERIA, LEUKEST, SSA, UWBC, URBC, UHB, UPROT, UGLUC, UKET in the last 168 hours. Invalid input(s): NITR COAG: No results for input(s): APTT, INR in the last 168 hours. CARDIAC: Recent Labs 07/21/25 0644 PBNP 7,187* Medication and Non-Pharmacologic VTE Prophylaxis/Anticoagulants Anticoagulant AND Antiplatelet Medications (From admission, onward) Start Dose Route Frequency Last Action Ordered Stop 07/20/25 1730 rivaroxaban 20 mg tab(s) (XARELTO) 20 mg PO DAILY WITH DINNER Given, 07/23 1651 07/20/25 1533 -- 07/14/25 0900 aspirin 81 mg chewable tab(s) 81 mg PO DAILY Given, 07/24 0950 07/13/25 2222 -- Assessment and plan: Acute new onset HFrEF Patient admitted for worsening lower and upper extremity edema that did not improve with outpatient p.o. Lasix Echo was done-EF 31%, previously 55% 2022 Cardiology is following Patient started on GDMT, but challenging due to hemodynamics- will continue to titrate based on blood pressure and heart rate Cardiology recommended to add metoprolol once patient is euvolemic Spironolactone 25 mg daily added on 07/22/2025 P.o. losartan 12.5 mg daily added on 07/23/2025 Continue IV Lasix 40 mg twice-->thrice daily Fluid status appears to be improving CAD with history of CABG 2020 Patient currently denies chest pain Discussed with cardiology, s/p cardiac cath on 07/17/2025 Postop Diagnosis: 1. Noninvasive echo evidence of LV dysfunction ejection fraction 31% with +3 tricuspid regurg. 2. Three-vessel occlusive coronary artery disease: A. LM: Minor plaque disease. B. LAD: Mid vessel subtotal occlusion C. CX: Diffuse 95% occlusive disease. D. RCA: Proximal 80% distal diffuse 90% occlusive disease. 3. ORNELAS to LAD: Wide patent. 4. SVG t (more content not included)... [facility] 07-24-2025 Note HNO ID: [id number] Author: JESUS MANUEL TRAMMELL RN Service: Nursing Author Type: Registered Nurse Type: Progress Notes Filed: 07/24/2025 13:58 Note Text: Cardiology CLINICAL RESEARCH PHYSICIAN Jaxson spoke with patient regarding discharge plan and stated that if he is able to be without any shortness of breath at rest, while eating, and while ambulating he will be able to discharge. Patient will also be able to transition to Lasix 40mg IV BID from TID starting 07/25/25. [facility] 07-23-2025 Note HNO ID: [id number] Author: CARLEY KEYES MD Service: General Internal Medicine Author Type: Physician Type: Progress Notes Filed: 07/23/2025 12:54 Note Text: INPATIENT PROGRESS NOTE SERVICE DATE: 07/23/2025 SERVICE TIME: 12:52 PM PRIMARY SERVICE: Hospital Medicine Subjective Denies any complaints this morning Fluid status appears to be improving Patient was started on low-dose losartan 12.5 mg daily today, blood pressure remains in 110s Current Facility-Administered Medications Medication Dose Route Frequency NaCl 0.9% iv flush bag 20 mL INTRAVENOUS PRN aluminum-magnesium hydroxide-simethicone 200-200-20 mg/5 mL 30 mL 30 mL ORAL DAILY PRN ondansetron 4 mg tab(s) (ZOFRAN) 4 mg ORAL q 6 H PRN Or ondansetron (PF) 4 mg injection (ZOFRAN) 4 mg INTRAVENOUS q 6 H PRN polyethylene glycol 3350 17 g packet 17 g ORAL DAILY PRN acetaminophen 650 mg tab(s) (TYLENOL) 650 mg ORAL q 6 H PRN HYDROcodone 5 mg - acetaminophen 325 mg tablet (NORCO) 1 tablet ORAL q [address] 40 mg tab(s) (PROTONIX) 40 mg ORAL DAILY (6 AM) multivitamin-ferrous fumarate-folic acid 1 tablet (CENTRUM) 1 tablet ORAL DAILY cyanocobalamin 1,000 mcg tab(s) (VITAMIN B-12) 1,000 mcg ORAL DAILY folic acid 1 mg tab(s) 1 mg ORAL DAILY atorvastatin 20 mg tab(s) (LIPITOR) 20 mg ORAL DAILY levothyroxine 100 mcg tab(s) (SYNTHROID) 100 mcg ORAL DAILY aspirin 81 mg chewable tab(s) 81 mg ORAL DAILY miconazole 2 % 1 application topical powder 1 application TOPICAL BID nitroglycerin sublingual 0.4 mg tab(s) (NITROQUICK) 0.4 mg SUBLINGUAL q 5 MIN PRN empagliflozin 10 mg tab(s) (JARDIANCE) 10 mg ORAL DAILY melatonin 6 mg tab(s) 6 mg ORAL AT BEDTIME PRN menthol 4 % topical gel (BIOFREEZE) TOPICAL TID PRN furosemide 40 mg injection (LASIX) 40 mg INTRAVENOUS TID rivaroxaban 20 mg tab(s) (XARELTO) 20 mg ORAL DAILY wDINNER spironolactone 12.5 mg tab(s) (ALDACTONE) 12.5 mg ORAL DAILY losartan 12.5 mg tab(s) (COZAAR) 12.5 mg ORAL DAILY Objective PHYSICAL EXAM: BP 118/56 Pulse 93 Temp (Src) 98 (Oral) Resp 18 Ht 5' 6 (1.68m) Wt 186 lb 11.7 oz (84.7kg) SpO2 95% BMI 30.15 kg/(m2). O2 Therapy: Room Air, Liters (Numeric Only): 2.0 General: Not in acute distress CVS: S1-S2 normal, no murmur, No JVD RS: Clear to auscultation bilaterally Abdomen: Soft, nontender, no organomegaly Musculoskeletal: +2 upper extremity edema bilaterally +1 bilateral lower extremity pedal edema Neuro: AO x3, No focal deficits Psy: Cooperative, No anxiety/depression DATA: LABORATORY TESTS: CBC: Recent Labs 07/23/25 0749 07/22/25 0528 07/21/25 0644 WBC 5.40 7.43 7.04 HB 9.7* 10.1* 10.6* PLT 186 204 208 MCV 108.0* 108.3* 110.7* CHEM: Recent Labs 07/22/25 0527 07/21/25 0644 07/20/25 1133 07/19/25 1136 NA 139 140 139 140 K 4.2 4.8 5.0 4.4 CA 8.4* 8.7 9.0 8.8 MG -- -- 2.4 2.4 ANION 6 8 6 13 CHLOR 96* 98 97* 99 CO2 37* 34* 36* 28 GLUC 102* 101* 107* 116* BUN 34* 33* 31* 21 CREAT 1.19 1.16 1.11 1.00 HEPATIC: No results for input(s): ALT, AST, TBILI, ALKPHOS, ALB, TPROT, LIPASE in the last 168 hours. URINALYSIS: No results for input(s): SPGR, UBACTERIA, LEUKEST, SSA, UWBC, URBC, UHB, UPROT, UGLUC, UKET in the last 168 hours. Invalid input(s): NITR COAG: Recent Labs 07/17/25 1339 07/17/25 0551 07/16/25 2219 APTT 118.1* 48.9* 52.4* CARDIAC: Recent Labs 07/21/25 0644 PBNP 7,187* Medication and Non-Pharmacologic VTE Prophylaxis/Anticoagulants Anticoagulant AND Antiplatelet Medications (From admission, onward) Start Dose Route Frequency Last Action Ordered Stop 07/20/25 1730 rivaroxaban 20 mg tab(s) (XARELTO) 20 mg PO DAILY WITH DINNER Given, 07/22 1553 07/20/25 1533 -- 07/14/25 0900 aspirin 81 mg chewable tab(s) 81 mg PO DAILY Given, 07/23 0911 07/13/25 2222 -- Assessment and plan: Acute new onset HFrEF Patient admitted for worsening lower and upper extremity edema that did not improve with outpatient p.o. Lasix Echo was done-EF 31%, previously 55% 2022 Cardiology is following Patient started on GDMT, but challenging due to hemodynamics- will continue to titrate based on blood pressure and heart rate Cardiology recommended to add metoprolol once patient is euvolemic Spironolactone 25 mg daily added on 07/22/2025 P.o. losartan 12.5 mg daily added on 07/23/2025 Continue IV Lasix 40 mg twice-->thrice daily Fluid status appears to be improving CAD with history of CABG 2020 Patient currently denies chest pain Discussed with cardiology, s/p cardiac cath on 07/17/2025 Postop Diagnosis: 1. Noninvasive echo evidence of LV dysfunction ejection fraction 31% with +3 tricuspid regurg. 2. Three-vessel occlusive coronary artery disease: A. LM: Minor plaque disease. B. LAD: Mid vessel subtotal occlusion C. CX: Diffuse 95% occlusive disease. D. RCA: Proximal 80% distal diffuse 90% occlusive disease. 3 (more content not included)... [facility] 07-22-2025 Note HNO ID: [id number] Author: CARLEY KEYES MD Service: General Internal Medicine Author Type: Physician Type: Progress Notes Filed: 07/22/2025 14:46 Note Text: INPATIENT PROGRESS NOTE SERVICE DATE: 07/22/2025 SERVICE TIME: 2:45 PM PRIMARY SERVICE: Hospital Medicine Subjective Denies any complaints this morning Fluid status appears to be improving Patient was started on spironolactone today as per cardiology recommendation Current Facility-Administered Medications Medication Dose Route Frequency NaCl 0.9% iv flush bag 20 mL INTRAVENOUS PRN aluminum-magnesium hydroxide-simethicone 200-200-20 mg/5 mL 30 mL 30 mL ORAL DAILY PRN ondansetron 4 mg tab(s) (ZOFRAN) 4 mg ORAL q 6 H PRN Or ondansetron (PF) 4 mg injection (ZOFRAN) 4 mg INTRAVENOUS q 6 H PRN polyethylene glycol 3350 17 g packet 17 g ORAL DAILY PRN acetaminophen 650 mg tab(s) (TYLENOL) 650 mg ORAL q 6 H PRN HYDROcodone 5 mg - acetaminophen 325 mg tablet (NORCO) 1 tablet ORAL q [address] 40 mg tab(s) (PROTONIX) 40 mg ORAL DAILY (6 AM) multivitamin-ferrous fumarate-folic acid 1 tablet (CENTRUM) 1 tablet ORAL DAILY cyanocobalamin 1,000 mcg tab(s) (VITAMIN B-12) 1,000 mcg ORAL DAILY folic acid 1 mg tab(s) 1 mg ORAL DAILY atorvastatin 20 mg tab(s) (LIPITOR) 20 mg ORAL DAILY levothyroxine 100 mcg tab(s) (SYNTHROID) 100 mcg ORAL DAILY aspirin 81 mg chewable tab(s) 81 mg ORAL DAILY miconazole 2 % 1 application topical powder 1 application TOPICAL BID nitroglycerin sublingual 0.4 mg tab(s) (NITROQUICK) 0.4 mg SUBLINGUAL q 5 MIN PRN empagliflozin 10 mg tab(s) (JARDIANCE) 10 mg ORAL DAILY melatonin 6 mg tab(s) 6 mg ORAL AT BEDTIME PRN menthol 4 % topical gel (BIOFREEZE) TOPICAL TID PRN furosemide 40 mg injection (LASIX) 40 mg INTRAVENOUS TID rivaroxaban 20 mg tab(s) (XARELTO) 20 mg ORAL DAILY wDINNER spironolactone 25 mg tab(s) (ALDACTONE) 25 mg ORAL DAILY Objective PHYSICAL EXAM: BP 107/60 Pulse 88 Temp (Src) 98.6 (Oral) Resp 16 Ht 5' 6 (1.68m) Wt 186 lb 8.2 oz (84.6kg) SpO2 94% BMI 30.12 kg/(m2). O2 Therapy: Nasal Cannula, Liters (Numeric Only): 2.0 General: Not in acute distress CVS: S1-S2 normal, no murmur, No JVD RS: Clear to auscultation bilaterally Abdomen: Soft, nontender, no organomegaly Musculoskeletal: +2 upper extremity edema bilaterally +1 bilateral lower extremity pedal edema Neuro: AO x3, No focal deficits Psy: Cooperative, No anxiety/depression DATA: LABORATORY TESTS: CBC: Recent Labs 07/22/25 0528 07/21/25 0644 07/20/25 0441 WBC 7.43 7.04 10.85 HB 10.1* 10.6* 11.3* PLT 204 208 178 MCV 108.3* 110.7* 110.4* CHEM: Recent Labs 07/22/25 0527 07/21/25 0644 07/20/25 1133 07/19/25 1136 NA 139 140 139 140 K 4.2 4.8 5.0 4.4 CA 8.4* 8.7 9.0 8.8 MG -- -- 2.4 2.4 ANION 6 8 6 13 CHLOR 96* 98 97* 99 CO2 37* 34* 36* 28 GLUC 102* 101* 107* 116* BUN 34* 33* 31* 21 CREAT 1.19 1.16 1.11 1.00 HEPATIC: No results for input(s): ALT, AST, TBILI, ALKPHOS, ALB, TPROT, LIPASE in the last 168 hours. URINALYSIS: No results for input(s): SPGR, UBACTERIA, LEUKEST, SSA, UWBC, URBC, UHB, UPROT, UGLUC, UKET in the last 168 hours. Invalid input(s): NITR COAG: Recent Labs 07/17/25 1339 07/17/25 0551 07/16/25 2219 APTT 118.1* 48.9* 52.4* CARDIAC: Recent Labs 07/21/25 0644 PBNP 7,187* Medication and Non-Pharmacologic VTE Prophylaxis/Anticoagulants Anticoagulant AND Antiplatelet Medications (From admission, onward) Start Dose Route Frequency Last Action Ordered Stop 07/20/25 1730 rivaroxaban 20 mg tab(s) (XARELTO) 20 mg PO DAILY WITH DINNER Given, 07/21 1621 07/20/25 1533 -- 07/14/25 0900 aspirin 81 mg chewable tab(s) 81 mg PO DAILY Given, 07/22 0907/13/252 -- Assessment and plan: Acute new onset HFrEF Patient admitted for worsening lower and upper extremity edema that did not improve with outpatient p.o. Lasix Echo was done-EF 31%, previously 55% 2022 Cardiology is following Patient started on GDMT, but challenging due to hemodynamics- will continue to titrate based on blood pressure and heart rate Spironolactone 25 mg daily added on 07/22/2025 Continue IV Lasix 40 mg twice-->thrice daily Fluid status appears to be improving CAD with history of CABG 2020 Patient currently denies chest pain Discussed with cardiology, s/p cardiac cath on 07/17/2025 Postop Diagnosis: 1. Noninvasive echo evidence of LV dysfunction ejection fraction 31% with +3 tricuspid regurg. 2. Three-vessel occlusive coronary artery disease: A. LM: Minor plaque disease. B. LAD: Mid vessel subtotal occlusion C. CX: Diffuse 95% occlusive disease. D. RCA: Proximal 80% distal diffuse 90% occlusive disease. 3. ORNELAS to LAD: Wide patent. 4. SVG to PDA: Wide patent. 5. SVG to ramus intermedius: Wide patent. A-fib Patient history of left atrial appendage ligation Continue home dose Xare (more content not included)... [facility] 07-22-2025 Note HNO ID: [id number] Author: NOTE, INTERFACE, ? Service: ? Author Type: ? Type: Progress Notes Filed: 07/24/2025 09:25 Note Text: Epic Scheduled Downtime: 07/22/2025 1:00:00 AM to 07/22/2025 2:06:36 AM [facility] 07-21-2025 Note HNO ID: [id number] Author: YARITZA NELSON LSW Service: Care Management Author Type: Learning And Development Coordinator Type: Care Mgt Progress Note Filed: 07/21/2025 12:48 Note Text: CARE MANAGEMENT PROGRESS NOTE SERVICE DATE: 07/21/2025 SERVICE TIME: 12:47 PM LOS: 8 days Chart reviewed. Patient admitted from home alone for sepsis, LLE cellulitis, CHF exacerbation. ATB discontinued. Cardio consulted. Patient on 2L NC, s/p LHC 07/17. Lifevest ordered. No cardio clearance - will likely be here through the weekend - SW let SNF know. Patient A/Ox3, daughter, liza, bedside. Patient functionally independent, ambulatory with cane in the apartment, electric scooter for outings if needed. Family has privately hired [employer] through [facility] to assist in care and IADLs as needed. Patient resides in long-term apartment with all handicap accessible components. Patient current with PCP listed on file Therapy recommending snf. Patient and daughter agreeable. [facility] is [facility] who [facility] accepting. Auth approved through 07/25. Passr done. Dc packet on chart with post acute checklist. AMB form done for cot transport needed. Plan snf pending cardio clearance. Cot transport needed if still on o2. CM will follow for transition of care. SIGNATURE: ARTEM Lynne PATIENT NAME: Srini Luis DATE: July 21, 2025 TIME: 12:46 PM [facility] 07-21-2025 Note HNO ID: [id number] Author: CARLEY KEYES MD Service: General Internal Medicine Author Type: Physician Type: Progress Notes Filed: 07/21/2025 21:35 Note Text: INPATIENT PROGRESS NOTE SERVICE DATE: 07/21/2025 SERVICE TIME: 9:31 PM PRIMARY SERVICE: Hospital Medicine Subjective Showing improvement in upper extremity edema, lower extremity edema appears to be improving as well Blood pressure in the 90s this morning Discussed with Cardiology regarding GDMT titration, Added Aldactone for tomorrow Current Facility-Administered Medications Medication Dose Route Frequency NaCl 0.9% iv flush bag 20 mL INTRAVENOUS PRN aluminum-magnesium hydroxide-simethicone 200-200-20 mg/5 mL 30 mL 30 mL ORAL DAILY PRN ondansetron 4 mg tab(s) (ZOFRAN) 4 mg ORAL q 6 H PRN Or ondansetron (PF) 4 mg injection (ZOFRAN) 4 mg INTRAVENOUS q 6 H PRN polyethylene glycol 3350 17 g packet 17 g ORAL DAILY PRN acetaminophen 650 mg tab(s) (TYLENOL) 650 mg ORAL q 6 H PRN HYDROcodone 5 mg - acetaminophen 325 mg tablet (NORCO) 1 tablet ORAL q [address] 40 mg tab(s) (PROTONIX) 40 mg ORAL DAILY (6 AM) multivitamin-ferrous fumarate-folic acid 1 tablet (CENTRUM) 1 tablet ORAL DAILY cyanocobalamin 1,000 mcg tab(s) (VITAMIN B-12) 1,000 mcg ORAL DAILY folic acid 1 mg tab(s) 1 mg ORAL DAILY atorvastatin 20 mg tab(s) (LIPITOR) 20 mg ORAL DAILY levothyroxine 100 mcg tab(s) (SYNTHROID) 100 mcg ORAL DAILY aspirin 81 mg chewable tab(s) 81 mg ORAL DAILY miconazole 2 % 1 application topical powder 1 application TOPICAL BID nitroglycerin sublingual 0.4 mg tab(s) (NITROQUICK) 0.4 mg SUBLINGUAL q 5 MIN PRN empagliflozin 10 mg tab(s) (JARDIANCE) 10 mg ORAL DAILY melatonin 6 mg tab(s) 6 mg ORAL AT BEDTIME PRN menthol 4 % topical gel (BIOFREEZE) TOPICAL TID PRN furosemide 40 mg injection (LASIX) 40 mg INTRAVENOUS TID rivaroxaban 20 mg tab(s) (XARELTO) 20 mg ORAL DAILY wDINNER [START ON 07/22/2025] spironolactone 25 mg tab(s) (ALDACTONE) 25 mg ORAL DAILY Objective PHYSICAL EXAM: BP 101/56 Pulse 88 Temp (Src) 98.4 (Oral) Resp 18 Ht 5' 6 (1.68m) Wt 191 lb 9.3 oz (86.9kg) SpO2 99% BMI 30.94 kg/(m2). O2 Therapy: Nasal Cannula, Liters (Numeric Only): 2.0 General: Not in acute distress CVS: S1-S2 normal, no murmur, No JVD RS: Clear to auscultation bilaterally Abdomen: Soft, nontender, no organomegaly Musculoskeletal: +2 upper extremity edema bilaterally +1 bilateral lower extremity pedal edema Neuro: AO x3, No focal deficits Psy: Cooperative, No anxiety/depression DATA: LABORATORY TESTS: CBC: Recent Labs 07/21/25 0644 07/20/25 0441 07/19/25 0425 WBC 7.04 10.85 6.75 HB 10.6* 11.3* 10.5* PLT 208 178 152 MCV 110.7* 110.4* 107.9* CHEM: Recent Labs 07/21/25 0644 07/20/25 1133 07/19/25 1136 NA 140 139 140 K 4.8 5.0 4.4 CA 8.7 9.0 8.8 MG -- 2.4 2.4 ANION 8 6 13 CHLOR 98 97* 99 CO2 34* 36* 28 GLUC 101* 107* 116* BUN 33* 31* 21 CREAT 1.16 1.11 1.00 HEPATIC: No results for input(s): ALT, AST, TBILI, ALKPHOS, ALB, TPROT, LIPASE in the last 168 hours. URINALYSIS: No results for input(s): SPGR, UBACTERIA, LEUKEST, SSA, UWBC, URBC, UHB, UPROT, UGLUC, UKET in the last 168 hours. Invalid input(s): NITR COAG: Recent Labs 07/17/25 1339 07/17/25 0551 07/16/25 2219 APTT 118.1* 48.9* 52.4* CARDIAC: Recent Labs 07/21/25 0644 PBNP 7,187* Medication and Non-Pharmacologic VTE Prophylaxis/Anticoagulants Anticoagulant AND Antiplatelet Medications (From admission, onward) Start Dose Route Frequency Last Action Ordered Stop 07/20/25 1730 rivaroxaban 20 mg tab(s) (XARELTO) 20 mg PO DAILY WITH DINNER Given, 07/21 1621 07/20/25 1533 -- 07/14/25 0900 aspirin 81 mg chewable tab(s) 81 mg PO DAILY Given, 07/21 93707/13/252221 -- Assessment and plan: Acute new onset HFrEF Patient admitted for worsening lower and upper extremity edema that did not improve with outpatient p.o. Lasix Echo was done-EF 31%, previously 55% 2022 Cardiology is following Patient started on GDMT, but challenging due to hemodynamics- will continue to titrate based on blood pressure and heart rate Continue IV Lasix 40 mg twice-->thrice daily Fluid status appears to be improving CAD with history of CABG 2020 Patient currently denies chest pain Discussed with cardiology, s/p cardiac cath on 07/17/2025 Postop Diagnosis: 1. Noninvasive echo evidence of LV dysfunction ejection fraction 31% with +3 tricuspid regurg. 2. Three-vessel occlusive coronary artery disease: A. LM: Minor plaque disease. B. LAD: Mid vessel subtotal occlusion C. CX: Diffuse 95% occlusive disease. D. RCA: Proximal 80% distal diffuse 90% occlusive disease. 3. ORNELAS to LAD: Wide patent. 4. SVG to PDA: Wide patent. 5. SVG to ramus intermedius: Wide patent. A-fib Patient history of left atrial appendage ligation Continue home dose Xarelto 20 mg (more content not included)... [facility] 07-20-2025 Note HNO ID: [id number] Author: CARLEY KEYES MD Service: General Internal Medicine Author Type: Physician Type: Progress Notes Filed: 07/20/2025 15:35 Note Text: INPATIENT PROGRESS NOTE SERVICE DATE: 07/20/2025 SERVICE TIME: 3:27 PM PRIMARY SERVICE: Hospital Medicine Subjective Patient was seen earlier this morning Still has significant upper extremity edema, lower extremity edema appears to be improving Blood pressure in the 110s this morning Cardiology currently titrating GDMT Current Facility-Administered Medications Medication Dose Route Frequency NaCl 0.9% iv flush bag 20 mL INTRAVENOUS PRN aluminum-magnesium hydroxide-simethicone 200-200-20 mg/5 mL 30 mL 30 mL ORAL DAILY PRN ondansetron 4 mg tab(s) (ZOFRAN) 4 mg ORAL q 6 H PRN Or ondansetron (PF) 4 mg injection (ZOFRAN) 4 mg INTRAVENOUS q 6 H PRN polyethylene glycol 3350 17 g packet 17 g ORAL DAILY PRN acetaminophen 650 mg tab(s) (TYLENOL) 650 mg ORAL q 6 H PRN HYDROcodone 5 mg - acetaminophen 325 mg tablet (NORCO) 1 tablet ORAL q [address] 40 mg tab(s) (PROTONIX) 40 mg ORAL DAILY (6 AM) multivitamin-ferrous fumarate-folic acid 1 tablet (CENTRUM) 1 tablet ORAL DAILY cyanocobalamin 1,000 mcg tab(s) (VITAMIN B-12) 1,000 mcg ORAL DAILY folic acid 1 mg tab(s) 1 mg ORAL DAILY atorvastatin 20 mg tab(s) (LIPITOR) 20 mg ORAL DAILY levothyroxine 100 mcg tab(s) (SYNTHROID) 100 mcg ORAL DAILY aspirin 81 mg chewable tab(s) 81 mg ORAL DAILY miconazole 2 % 1 application topical powder 1 application TOPICAL BID nitroglycerin sublingual 0.4 mg tab(s) (NITROQUICK) 0.4 mg SUBLINGUAL q 5 MIN PRN empagliflozin 10 mg tab(s) (JARDIANCE) 10 mg ORAL DAILY heparin 5,000 Units injection 5,000 Units SUBCUTANEOUS q 12 H melatonin 6 mg tab(s) 6 mg ORAL AT BEDTIME PRN menthol 4 % topical gel (BIOFREEZE) TOPICAL TID PRN furosemide 40 mg injection (LASIX) 40 mg INTRAVENOUS TID Objective PHYSICAL EXAM: BP 109/63 Pulse 84 Temp (Src) 97.8 (Oral) Resp 16 Ht 5' 6 (1.68m) Wt 191 lb 9.3 oz (86.9kg) SpO2 97% BMI 30.94 kg/(m2). O2 Therapy: Nasal Cannula, Liters (Numeric Only): 2.0 General: Not in acute distress CVS: S1-S2 normal, no murmur, No JVD RS: Clear to auscultation bilaterally Abdomen: Soft, nontender, no organomegaly Musculoskeletal: +2 upper extremity edema bilaterally +1 bilateral lower extremity pedal edema Neuro: AO x3, No focal deficits Psy: Cooperative, No anxiety/depression DATA: LABORATORY TESTS: CBC: Recent Labs 07/20/25 0441 07/19/25 0425 07/18/25 0419 07/14/25 0509 07/13/25 1558 WBC 10.85 6.75 7.25 < > 16.71* HB 11.3* 10.5* 10.7* < > 11.3* PLT 178 152 191 < > 210 MCV 110.4* 107.9* 109.6* < > 113.5* NEUTP -- -- -- -- 88.7 ABSNEUT -- -- -- -- 14.83* LYMPHP -- -- -- -- 3.9 EODINP -- -- -- -- 0.1 < > = values in this interval not displayed. CHEM: Recent Labs 07/20/25 1133 07/19/25 1136 07/18/25 0419 07/15/25 0733 07/14/25 0509 NA 139 140 139 < > 139 K 5.0 4.4 4.9 < > 4.4 CA 9.0 8.8 9.2 < > 8.9 MG 2.4 2.4 -- -- 2.2 ANION 6 13 10 < > 10 CHLOR 97* 99 99 < > 98 CO2 36* 28 30 < > 31 GLUC 107* 116* 132* < > 108* BUN 31* 21 27* < > 26 CREAT 1.11 1.00 0.99 < > 1.18 < > = values in this interval not displayed. HEPATIC: Recent Labs 07/13/25 1558 ALT 33 AST 35* TBILI 2.0* ALKPHOS 83 ALB 3.5 TPROT 6.4 URINALYSIS: Recent Labs 07/14/25 0116 SPGR 1.011 UBACTERIA None Seen LEUKEST Negative UWBC 0-5 /HPF URBC 0-3 /HPF UHB Negative UPROT Negative UGLUC Negative UKET Negative COAG: Recent Labs 07/17/25 1339 07/17/25 0551 07/16/25 2219 07/14/25 2054 07/14/25 1412 APTT 118.1* 48.9* 52.4* < > 37.7* INR -- -- -- -- 1.3 < > = values in this interval not displayed. CARDIAC: Recent Labs 07/13/25 1558 PBNP 17,919* Medication and Non-Pharmacologic VTE Prophylaxis/Anticoagulants Anticoagulant AND Antiplatelet Medications (From admission, onward) Start Dose Route Frequency Last Action Ordered Stop 07/18/25 1530 heparin 5,000 Units injection 5,000 Units SQ EVERY 12 HOURS Given, 07/20 103607/18/25 1516 -- 07/14/25 0900 aspirin 81 mg chewable tab(s) 81 mg PO DAILY Given, 07/20 103507/13/25 2222 -- Assessment and plan: Acute new onset HFrEF Patient admitted for worsening lower and upper extremity edema that did not improve with outpatient p.o. Lasix Echo was done-EF 31%, previously 55% 2022 Cardiology is following Patient started on GDMT, but challenging due to hemodynamics- will continue to titrate based on blood pressure and heart rate Continue IV Lasix 40 mg twice-->thrice daily Fluid status appears to be improving CAD with history of CABG 2020 Patient currently denies chest pain Discussed with cardiology, s/p cardiac cath on 07/17/2025 Postop Diagnosis: 1. Noninvasive echo evidence of LV dysfunction ejection fraction 31% with +3 tricuspid regurg. 2. Three-vessel occl (more content not included)... [facility] 07-20-2025 Note HNO ID: [id number] Author: TARA HOROWITZ RN Service: Care Management Author Type: Registered Nurse Type: Care Mgt Progress Note Filed: 07/20/2025 10:19 Note Text: CARE MANAGEMENT PROGRESS NOTE SERVICE DATE: 07/20/2025 SERVICE TIME: 10:15 AM LOS: 7 days Chart reviewed. Patient admitted from home alone for sepsis, LLE cellulitis, CHF exacerbation. ATB discontinued. Cardio consulted. Patient on 2L NC, s/p LHC 07/17. Lifevest ordered. Patient A/Ox3, daughter, liza, bedside. Patient functionally independent, ambulatory with cane in the apartment, electric scooter for outings if needed. Family has privately hired [employer]OX [employer] through [facility] to assist in care and IADLs as needed. Patient resides in long-term apartment with all handicap accessible components. Patient current with PCP listed on file Therapy recommending snf. Patient and daughter agreeable. [facility]. Auth approved through 07/25. Passr done. Dc packet on chart with post acute checklist. AMB form done for cot transport needed. Plan snf pending cardio clearance. Cot transport needed if still on o2. CM will follow for transition of care. SIGNATURE: Tara Horowitz RN PATIENT NAME: Srini Luis DATE: July 20, 2025 TIME: 10:12 AM [facility] 07-19-2025 Note HNO ID: [id number] Author: CARLEY KEYES MD Service: General Internal Medicine Author Type: Physician Type: Progress Notes Filed: 07/19/2025 15:44 Note Text: INPATIENT PROGRESS NOTE SERVICE DATE: 07/19/2025 SERVICE TIME: 3:39 PM PRIMARY SERVICE: Hospital Medicine Subjective Patient was seen earlier this morning as he was undergoing therapy Blood pressure was soft, along with low heart rate Cardiology currently titrating GDMT Current Facility-Administered Medications Medication Dose Route Frequency NaCl 0.9% iv flush bag 20 mL INTRAVENOUS PRN aluminum-magnesium hydroxide-simethicone 200-200-20 mg/5 mL 30 mL 30 mL ORAL DAILY PRN ondansetron 4 mg tab(s) (ZOFRAN) 4 mg ORAL q 6 H PRN Or ondansetron (PF) 4 mg injection (ZOFRAN) 4 mg INTRAVENOUS q 6 H PRN polyethylene glycol 3350 17 g packet 17 g ORAL DAILY PRN acetaminophen 650 mg tab(s) (TYLENOL) 650 mg ORAL q 6 H PRN HYDROcodone 5 mg - acetaminophen 325 mg tablet (NORCO) 1 tablet ORAL q [address] 40 mg tab(s) (PROTONIX) 40 mg ORAL DAILY (6 AM) multivitamin-ferrous fumarate-folic acid 1 tablet (CENTRUM) 1 tablet ORAL DAILY cyanocobalamin 1,000 mcg tab(s) (VITAMIN B-12) 1,000 mcg ORAL DAILY folic acid 1 mg tab(s) 1 mg ORAL DAILY atorvastatin 20 mg tab(s) (LIPITOR) 20 mg ORAL DAILY levothyroxine 100 mcg tab(s) (SYNTHROID) 100 mcg ORAL DAILY aspirin 81 mg chewable tab(s) 81 mg ORAL DAILY miconazole 2 % 1 application topical powder 1 application TOPICAL BID nitroglycerin sublingual 0.4 mg tab(s) (NITROQUICK) 0.4 mg SUBLINGUAL q 5 MIN PRN furosemide 40 mg injection (LASIX) 40 mg INTRAVENOUS BID 9a/5p empagliflozin 10 mg tab(s) (JARDIANCE) 10 mg ORAL DAILY heparin 5,000 Units injection 5,000 Units SUBCUTANEOUS q 12 H melatonin 6 mg tab(s) 6 mg ORAL AT BEDTIME PRN Objective PHYSICAL EXAM: BP 94/59 Pulse 57 Temp (Src) 97.4 (Oral) Resp 20 Ht 5' 6 (1.68m) Wt 192 lb 3.9 oz (87.2kg) SpO2 100% BMI 31.04 kg/(m2). O2 Therapy: Nasal Cannula, Liters (Numeric Only): 2.0 General: Not in acute distress CVS: S1-S2 normal, no murmur, No JVD RS: Clear to auscultation bilaterally Abdomen: Soft, nontender, no organomegaly Musculoskeletal: +2 upper and lower extremity edema bilaterally Neuro: AO x3, No focal deficits Psy: Cooperative, No anxiety/depression DATA: LABORATORY TESTS: CBC: Recent Labs 07/19/25 0425 07/18/2541807/17/25 0551 07/14/25 0509 07/13/25 1558 WBC 6.75 7.25 7.36 < > 16.71* HB 10.5* 10.7* 11.5* < > 11.3* PLT 152 191 199 < > 210 MCV 107.9* 109.6* 110.0* < > 113.5* NEUTP -- -- -- -- 88.7 ABSNEUT -- -- -- -- 14.83* LYMPHP -- -- -- -- 3.9 EODINP -- -- -- -- 0.1 < > = values in this interval not displayed. CHEM: Recent Labs 07/19/25 1136 07/18/25 04107/17/25 0551 07/16/25 0941 07/15/25 0733 07/14/25 0509 07/13/25 1558 NA 140 139 139 -- < > 139 139 K 4.4 4.9 -- 4.7 < > 4.4 5.5* CA 8.8 9.2 9.2 -- < > 8.9 8.8 MG -- -- -- -- -- 2.2 2.0 ANION 13 10 11 -- < > 10 8 CHLOR 99 99 98 -- < > 98 100 CO2 28 30 30 -- < > 31 31 GLUC 116* 132* 95 -- < > 108* 196* BUN 21 27* 24 -- < > 26 32* CREAT 1.00 0.99 0.93 -- < > 1.18 1.21 < > = values in this interval not displayed. HEPATIC: Recent Labs 07/13/25 1558 ALT 33 AST 35* TBILI 2.0* ALKPHOS 83 ALB 3.5 TPROT 6.4 URINALYSIS: Recent Labs 07/14/25 0116 SPGR 1.011 UBACTERIA None Seen LEUKEST Negative UWBC 0-5 /HPF URBC 0-3 /HPF UHB Negative UPROT Negative UGLUC Negative UKET Negative COAG: Recent Labs 07/17/25 1339 07/17/25 0551 07/16/25 2219 07/14/25 2054 07/14/25 1412 APTT 118.1* 48.9* 52.4* < > 37.7* INR -- -- -- -- 1.3 < > = values in this interval not displayed. CARDIAC: Recent Labs 07/13/25 1558 PBNP 17,919* Medication and Non-Pharmacologic VTE Prophylaxis/Anticoagulants Anticoagulant AND Antiplatelet Medications (From admission, onward) Start Dose Route Frequency Last Action Ordered Stop 07/18/25 1530 heparin 5,000 Units injection 5,000 Units SQ EVERY 12 HOURS Given, 07/19 93207/18/25 1516 -- 07/14/25 0900 aspirin 81 mg chewable tab(s) 81 mg PO DAILY Given, 07/19 93207/13/252221 -- Assessment and plan: Acute new onset HFrEF Patient admitted for worsening lower and upper extremity edema that did not improve with outpatient p.o. Lasix Echo was done-EF 31%, previously 55% 2022 Cardiology is following Patient started on GDMT-EntrestoNghiaance, will continue to titrate based on blood pressure and heart rate Continue IV Lasix 40 mg twice daily Fluid status appears to be improving CAD with history of CABG 2020 Patient currently denies chest pain Discussed with cardiology, s/p cardiac cath on 07/17/2025 Postop Diagnosis: 1. Noninvasive echo evidence of LV dysfunction ejection fraction 31% with +3 tricuspid regurg. 2. Three-vessel occlusive coronary artery disease: A. LM: Minor plaque disease. B. (more content not included)... [facility] 07-19-2025 Note HNO ID: [id number] Author: BROWN, TARA, RN Service: Care Management Author Type: Registered Nurse Type: Care Mgt Progress Note Filed: 07/19/2025 14:16 Note Text: CARE MANAGEMENT PROGRESS NOTE SERVICE DATE: 07/19/2025 SERVICE TIME: 1114 LOS: 6 days IMM Follow Up Copy Given: Yes Copy given to:: Patient Method: In Person Chart reviewed. Patient admitted from home alone for sepsis, LLE cellulitis, CHF exacerbation. ATB discontinued. Cardio consulted. Patient on 2L NC, s/p C 07/17. Pending lifevest today. Patient A/Ox3, daughter, liza, bedside. Patient functionally independent, ambulatory with cane in the apartment, electric scooter for outings if needed. Family has privately hired [employer] BOX C[employer] through [facility] to assist in care and IADLs as needed. Patient resides in long-term apartment with all handicap accessible components. Patient current with PCP listed on file Therapy now ordered. Daughter anticipating snf. [facility] as patient is from their independent apartments. They can accept. Auth needed and would be auto auth. Transport needed if patient remains on 2L NC. Otherwise, daughter to transport. Passr done. Dc packet on chart with post acute checklist. Plan snf pending therapy eval to start auth. Cot transport needed if still on o2. CM will follow for transition of care. ___ Auth tasked to be started. Cardio holding patient one more day for BP monitoring. SIGNATURE: Tara Horowitz RN PATIENT NAME: Srini Luis DATE: July 19, 2025 TIME: 11:23 AM [facility] 07-18-2025 Note HNO ID: [id number] Author: CARLEY KEYES MD Service: General Internal Medicine Author Type: Physician Type: Progress Notes Filed: 07/18/2025 15:17 Note Text: INPATIENT PROGRESS NOTE SERVICE DATE: 07/18/2025 SERVICE TIME: 3:14 PM PRIMARY SERVICE: Hospital Medicine Subjective Patient started on GDMT-Entresto and Jardiance today, will monitor vitals overnight Current Facility-Administered Medications Medication Dose Route Frequency NaCl 0.9% iv flush bag 20 mL INTRAVENOUS PRN aluminum-magnesium hydroxide-simethicone 200-200-20 mg/5 mL 30 mL 30 mL ORAL DAILY PRN ondansetron 4 mg tab(s) (ZOFRAN) 4 mg ORAL q 6 H PRN Or ondansetron (PF) 4 mg injection (ZOFRAN) 4 mg INTRAVENOUS q 6 H PRN polyethylene glycol 3350 17 g packet 17 g ORAL DAILY PRN acetaminophen 650 mg tab(s) (TYLENOL) 650 mg ORAL q 6 H PRN HYDROcodone 5 mg - acetaminophen 325 mg tablet (NORCO) 1 tablet ORAL q [address] mg tab(s) (PROTONIX) 40 mg ORAL DAILY (6 AM) multivitamin-ferrous fumarate-folic acid 1 tablet (CENTRUM) 1 tablet ORAL DAILY cyanocobalamin 1,000 mcg tab(s) (VITAMIN B-12) 1,000 mcg ORAL DAILY folic acid 1 mg tab(s) 1 mg ORAL DAILY atorvastatin 20 mg tab(s) (LIPITOR) 20 mg ORAL DAILY levothyroxine 100 mcg tab(s) (SYNTHROID) 100 mcg ORAL DAILY aspirin 81 mg chewable tab(s) 81 mg ORAL DAILY miconazole 2 % 1 application topical powder 1 application TOPICAL BID nitroglycerin sublingual 0.4 mg tab(s) (NITROQUICK) 0.4 mg SUBLINGUAL q 5 MIN PRN furosemide 40 mg injection (LASIX) 40 mg INTRAVENOUS BID 9a/5p sacubitril-valsartan 24-26 mg 1 tablet (ENTRESTO) 1 tablet ORAL BID empagliflozin 10 mg tab(s) (JARDIANCE) 10 mg ORAL DAILY [START ON 07/19/2025] metoprolol succinate ER 25 mg tab(s) (TOPROL XL) 25 mg ORAL DAILY Objective PHYSICAL EXAM: BP 145/78 Pulse 95 Temp (Src) 97.7 (Oral) Resp 16 Ht 5' 6 (1.68m) Wt 192 lb 10.9 oz (87.4kg) SpO2 91% BMI 31.11 kg/(m2). O2 Therapy: Room Air, Liters (Numeric Only): 2 General: Not in acute distress CVS: S1-S2 normal, no murmur, No JVD RS: Clear to auscultation bilaterally Abdomen: Soft, nontender, no organomegaly Musculoskeletal: +2 upper and lower extremity edema bilaterally Neuro: AO x3, No focal deficits Psy: Cooperative, No anxiety/depression DATA: LABORATORY TESTS: CBC: Recent Labs 07/18/2541807/17/25 0551 07/16/25 0648 07/14/25 0509 07/13/25 1558 WBC 7.25 7.36 7.88 < > 16.71* HB 10.7* 11.5* 10.9* < > 11.3* PLT 191 199 183 < > 210 MCV 109.6* 110.0* 110.6* < > 113.5* NEUTP -- -- -- -- 88.7 ABSNEUT -- -- -- -- 14.83* LYMPHP -- -- -- -- 3.9 EODINP -- -- -- -- 0.1 < > = values in this interval not displayed. CHEM: Recent Labs 07/18/2541807/17/25 0507/16/25 0941 07/16/25 0648 07/15/25 0733 07/14/25 0509 07/13/25 1558 NA 139 139 -- 139 140 139 139 K 4.9 -- 4.7 -- 3.9 4.4 5.5* CA 9.2 9.2 -- 8.9 8.8 8.9 8.8 MG -- -- -- -- -- 2.2 2.0 ANION 10 11 -- 12 7 10 8 CHLOR 99 98 -- 100 100 98 100 CO2 30 30 -- 27 33* 31 31 GLUC 132* 95 -- 142* 110* 108* 196* BUN 27* 24 -- 25 25 26 32* CREAT 0.99 0.93 -- 1.09 1.28 1.18 1.21 HEPATIC: Recent Labs 07/13/25 1558 ALT 33 AST 35* TBILI 2.0* ALKPHOS 83 ALB 3.5 TPROT 6.4 URINALYSIS: Recent Labs 07/14/25 0116 SPGR 1.011 UBACTERIA None Seen LEUKEST Negative UWBC 0-5 /HPF URBC 0-3 /HPF UHB Negative UPROT Negative UGLUC Negative UKET Negative COAG: Recent Labs 07/17/25 1339 07/17/25 0551 07/16/25 2219 07/14/25 2054 07/14/25 1412 APTT 118.1* 48.9* 52.4* < > 37.7* INR -- -- -- -- 1.3 < > = values in this interval not displayed. CARDIAC: Recent Labs 07/13/25 1558 PBNP 17,919* Medication and Non-Pharmacologic VTE Prophylaxis/Anticoagulants Anticoagulant AND Antiplatelet Medications (From admission, onward) Start Dose Route Frequency Last Action Ordered Stop 07/14/25 0900 aspirin 81 mg chewable tab(s) 81 mg PO DAILY Given, 07/18 0934 07/13/252221 -- Assessment and plan: Acute new onset HFrEF Patient admitted for worsening lower and upper extremity edema that did not improve with outpatient p.o. Lasix Echo was done-EF 31%, previously 55% 2022 Cardiology is following Patient started on GDMT-Entresto, Jardiance, will continue to titrate based on blood pressure and heart rate Continue IV Lasix 40 mg twice daily Fluid status appears to be improving CAD with history of CABG 2020 Patient currently denies chest pain Discussed with cardiology, s/p cardiac cath on 07/17/2025 Postop Diagnosis: 1. Noninvasive echo evidence of LV dysfunction ejection fraction 31% with +3 tricuspid regurg. 2. Three-vessel occlusive coronary artery disease: A. LM: Minor plaque disease. B. LAD: Mid vessel subtotal occlusion C. CX: Diffuse 95% occlusive disease. D. RCA: Proximal 80% distal diffuse 90% occlusive disease. 3. ORNELAS to LAD: Wide patent. 4. SVG to PDA: Wide pat (more content not included)... [facility] 07-18-2025 Note HNO ID: [id number] Author: TOSIN LAOZ RN Service: Care Management Author Type: Registered Nurse Type: Care Mgt Progress Note Filed: 07/18/2025 12:23 Note Text: CARE MANAGEMENT PROGRESS NOTE SERVICE DATE: 07/18/2025 SERVICE TIME: 12:21 PM LOS: 5 days Plan to d/c tomorrow, 07/19 as per attending. Is adding new heart failure medications to med list to see how patient tolerates. From home, alone. Has private duty nursing aids with [facility]. Has cane and electric scooter, family support. Will have transport at discharge. Admitted with dx of congestive heart failure. LHC done 07/17. Cardio consulted. On room air. Blood cultures negative. No anticipated needs from at this time. SIGNATURE: Tosin Lazo RN PATIENT NAME: Srini Luis DATE: July 18, 2025 TIME: 12:21 PM [facility] 07-17-2025 Note HNO ID: [id number] Author: CARLEY KEYES MD Service: General Internal Medicine Author Type: Physician Type: Progress Notes Filed: 07/18/2025 15:14 Note Text: INPATIENT PROGRESS NOTE SERVICE DATE: 07/18/2025 SERVICE TIME: 3:13 PM PRIMARY SERVICE: Hospital Medicine Subjective Patient had cardiac cath today Current Facility-Administered Medications Medication Dose Route Frequency NaCl 0.9% iv flush bag 20 mL INTRAVENOUS PRN aluminum-magnesium hydroxide-simethicone 200-200-20 mg/5 mL 30 mL 30 mL ORAL DAILY PRN ondansetron 4 mg tab(s) (ZOFRAN) 4 mg ORAL q 6 H PRN Or ondansetron (PF) 4 mg injection (ZOFRAN) 4 mg INTRAVENOUS q 6 H PRN polyethylene glycol 3350 17 g packet 17 g ORAL DAILY PRN acetaminophen 650 mg tab(s) (TYLENOL) 650 mg ORAL q 6 H PRN HYDROcodone 5 mg - acetaminophen 325 mg tablet (NORCO) 1 tablet ORAL q [address] 40 mg tab(s) (PROTONIX) 40 mg ORAL DAILY (6 AM) multivitamin-ferrous fumarate-folic acid 1 tablet (CENTRUM) 1 tablet ORAL DAILY cyanocobalamin 1,000 mcg tab(s) (VITAMIN B-12) 1,000 mcg ORAL DAILY folic acid 1 mg tab(s) 1 mg ORAL DAILY atorvastatin 20 mg tab(s) (LIPITOR) 20 mg ORAL DAILY levothyroxine 100 mcg tab(s) (SYNTHROID) 100 mcg ORAL DAILY aspirin 81 mg chewable tab(s) 81 mg ORAL DAILY miconazole 2 % 1 application topical powder 1 application TOPICAL BID nitroglycerin sublingual 0.4 mg tab(s) (NITROQUICK) 0.4 mg SUBLINGUAL q 5 MIN PRN furosemide 40 mg injection (LASIX) 40 mg INTRAVENOUS BID 9a/5p sacubitril-valsartan 24-26 mg 1 tablet (ENTRESTO) 1 tablet ORAL BID empagliflozin 10 mg tab(s) (JARDIANCE) 10 mg ORAL DAILY [START ON 07/19/2025] metoprolol succinate ER 25 mg tab(s) (TOPROL XL) 25 mg ORAL DAILY Objective PHYSICAL EXAM: BP 145/78 Pulse 95 Temp (Src) 97.7 (Oral) Resp 16 Ht 5' 6 (1.68m) Wt 192 lb 10.9 oz (87.4kg) SpO2 91% BMI 31.11 kg/(m2). O2 Therapy: Room Air, Liters (Numeric Only): 2 General: Not in acute distress CVS: S1-S2 normal, no murmur, No JVD RS: Clear to auscultation bilaterally Abdomen: Soft, nontender, no organomegaly Musculoskeletal: +2 upper and lower extremity edema bilaterally Neuro: AO x3, No focal deficits Psy: Cooperative, No anxiety/depression DATA: LABORATORY TESTS: CBC: Recent Labs 07/18/2541807/17/25 0551 07/16/25 0648 07/14/25 05007/13/25 1558 WBC 7.25 7.36 7.88 < > 16.71* HB 10.7* 11.5* 10.9* < > 11.3* PLT 191 199 183 < > 210 MCV 109.6* 110.0* 110.6* < > 113.5* NEUTP -- -- -- -- 88.7 ABSNEUT -- -- -- -- 14.83* LYMPHP -- -- -- -- 3.9 EODINP -- -- -- -- 0.1 < > = values in this interval not displayed. CHEM: Recent Labs 07/18/2541807/17/25 0551 07/16/25 0941 07/16/25 0648 07/15/25 0733 07/14/25 0509 07/13/25 1558 NA 139 139 -- 139 140 139 139 K 4.9 -- 4.7 -- 3.9 4.4 5.5* CA 9.2 9.2 -- 8.9 8.8 8.9 8.8 MG -- -- -- -- -- 2.2 2.0 ANION 10 11 -- 12 7 10 8 CHLOR 99 98 -- 100 100 98 100 CO2 30 30 -- 27 33* 31 31 GLUC 132* 95 -- 142* 110* 108* 196* BUN 27* 24 -- 25 25 26 32* CREAT 0.99 0.93 -- 1.09 1.28 1.18 1.21 HEPATIC: Recent Labs 07/13/25 1558 ALT 33 AST 35* TBILI 2.0* ALKPHOS 83 ALB 3.5 TPROT 6.4 URINALYSIS: Recent Labs 07/14/25 0116 SPGR 1.011 UBACTERIA None Seen LEUKEST Negative UWBC 0-5 /HPF URBC 0-3 /HPF UHB Negative UPROT Negative UGLUC Negative UKET Negative COAG: Recent Labs 07/17/25 1339 07/17/25 0551 07/16/25 2219 07/14/25205307/14/25 1412 APTT 118.1* 48.9* 52.4* < > 37.7* INR -- -- -- -- 1.3 < > = values in this interval not displayed. CARDIAC: Recent Labs 07/13/25 1558 PBNP 17,919* Medication and Non-Pharmacologic VTE Prophylaxis/Anticoagulants Anticoagulant AND Antiplatelet Medications (From admission, onward) Start Dose Route Frequency Last Action Ordered Stop 07/14/25 0900 aspirin 81 mg chewable tab(s) 81 mg PO DAILY Given, 07/18 93407/13/252221 -- Assessment and plan: Acute new onset HFrEF Patient admitted for worsening lower and upper extremity edema that did not improve with outpatient p.o. Lasix Echo was done-EF 31%, previously 55% 2022 Cardiology is following Patient started on GDMT, will continue to titrate based on blood pressure and heart rate Continue IV Lasix 40 mg twice daily Fluid status appears to be improving CAD with history of CABG 2020 Discussed with cardiology, s/p cardiac cath today Patient currently denies chest pain A-fib Patient history of left atrial appendage ligation He was previously on Xarelto, cardiology recommended changing to heparin drip Monitor for signs of bleeding and blood loss Daily CBC Patient on metoprolol succinate 12.5 mg daily Concerns of cellulitis He was recently treated for lower extremity cellulitis, denies pain burning or tenderness to palpation Empirically started on IV antibiotics, cultures remain negative, patient looks nontoxic, does not ap (more content not included)... [facility] 07-17-2025 Note HNO ID: [id number] Author: TARA HOROWITZ RN Service: Care Management Author Type: Registered Nurse Type: Care Mgt Progress Note Filed: 07/17/2025 09:40 Note Text: CARE MANAGEMENT PROGRESS NOTE SERVICE DATE: 07/17/2025 SERVICE TIME: 9:40 AM LOS: 4 days Chart reviewed. Patient admitted from home alone for sepsis, LLE cellulitis, CHF exacerbation. ATB discontinued. Cardio consulted. Patient on RA, hep gtt, pending [facility] today. Patient A/Ox3, daughter, liza, bedside. Patient functionally independent, ambulatory with cane in the apartment, electric scooter for outings if needed. Family has privately hired [employer] through [facility] to assist in care and IADLs as needed. Patient resides in long-term apartment with all handicap accessible components. Patient current with PCP listed on file. Plan home no needs identified. CM will follow for transition of care. SIGNATURE: Tara Horowitz RN PATIENT NAME: Srini Luis DATE: July 17, 2025 TIME: 9:39 AM [facility] 07-16-2025 Note HNO ID: [id number] Author: CARLEY KEYES MD Service: General Internal Medicine Author Type: Physician Type: Progress Notes Filed: 07/16/2025 12:28 Note Text: INPATIENT PROGRESS NOTE SERVICE DATE: 07/16/2025 SERVICE TIME: 12:24 PM PRIMARY SERVICE: Hospital Medicine Subjective Seen in the presence of family at bedside Upper and lower extremity edema is improving according to the patient Denies shortness of breath, chest pain today Current Facility-Administered Medications Medication Dose Route Frequency vancomycin dosing and monitoring per pharmacy OTHER As Directed NaCl 0.9% iv flush bag 20 mL INTRAVENOUS PRN vancomycin iv piggyback 1.25 g in D5W 250 mL (VANCOCIN) 1.25 g INTRAVENOUS q 24 HR aluminum-magnesium hydroxide-simethicone 200-200-20 mg/5 mL 30 mL 30 mL ORAL DAILY PRN ondansetron 4 mg tab(s) (ZOFRAN) 4 mg ORAL q 6 H PRN Or ondansetron (PF) 4 mg injection (ZOFRAN) 4 mg INTRAVENOUS q 6 H PRN polyethylene glycol 3350 17 g packet 17 g ORAL DAILY PRN acetaminophen 650 mg tab(s) (TYLENOL) 650 mg ORAL q 6 H PRN HYDROcodone 5 mg - acetaminophen 325 mg tablet (NORCO) 1 tablet ORAL q 6 H PRN sodium chloride 0.9 % (flush) 2-10 mL (BD POSIFLUSH) 2-10 mL INTRAVENOUS DIRECTED PRN And perflutren lipid microspheres 1.1 mg/mL 1.3 mL injection (DEFINITY) 1.3 mL INTRAVENOUS DIRECTED PRN pantoprazole DR 40 mg tab(s) (PROTONIX) 40 mg ORAL DAILY (6 AM) multivitamin-ferrous fumarate-folic acid 1 tablet (CENTRUM) 1 tablet ORAL DAILY cyanocobalamin 1,000 mcg tab(s) (VITAMIN B-12) 1,000 mcg ORAL DAILY nitroglycerin sublingual 0.6 mg tab(s) (NITROQUICK) 0.6 mg SUBLINGUAL q 5 MIN PRN folic acid 1 mg tab(s) 1 mg ORAL DAILY atorvastatin 20 mg tab(s) (LIPITOR) 20 mg ORAL DAILY levothyroxine 100 mcg tab(s) (SYNTHROID) 100 mcg ORAL DAILY aspirin 81 mg chewable tab(s) 81 mg ORAL DAILY miconazole 2 % 1 application topical powder 1 application TOPICAL BID metoprolol succinate ER 12.5 mg tab(s) (TOPROL XL) 12.5 mg ORAL DAILY heparin iv infusion 25,000 units in NaCl 0.45% 250 mL LOW DOSE/ACS NOMOGRAM 0-3,000 Units/hr INTRAVENOUS CONTINUOUS And heparin RATE CHANGE bolus 1,000-4,000 Units for subtherapeutic PTTAC results 1,000-4,000 Units INTRAVENOUS PRN Objective PHYSICAL EXAM: BP 99/73 Pulse 96 Temp (Src) 98 (Oral) Resp 17 Ht 5' 6 (1.68m) Wt 191 lb 2.2 oz (86.7kg) SpO2 93% BMI 30.87 kg/(m2). O2 Therapy: Room Air General: Not in acute distress CVS: S1-S2 normal, no murmur, No JVD RS: Clear to auscultation bilaterally Abdomen: Soft, nontender, no organomegaly Musculoskeletal: +2 upper and lower extremity edema bilaterally Neuro: AO x3, No focal deficits Psy: Cooperative, No anxiety/depression DATA: LABORATORY TESTS: CBC: Recent Labs 07/16/25 0648 07/15/25 0733 07/14/25 1412 07/14/25 05007/13/25 1558 WBC 7.88 9.24 12.42* < > 16.71* HB 10.9* 10.4* 10.4* < > 11.3* PLT 183 172 173 < > 210 MCV 110.6* 111.2* 112.1* < > 113.5* NEUTP -- -- -- -- 88.7 ABSNEUT -- -- -- -- 14.83* LYMPHP -- -- -- -- 3.9 EODINP -- -- -- -- 0.1 < > = values in this interval not displayed. CHEM: Recent Labs 07/16/25 0941 07/16/25 0648 07/15/25 0707/14/25 05007/13/25 1558 NA -- 139 140 139 139 K 4.7 -- 3.9 4.4 5.5* CA -- 8.9 8.8 8.9 8.8 MG -- -- -- 2.2 2.0 ANION -- 12 7 10 8 CHLOR -- 100 100 98 100 CO2 -- 27 33* 31 31 GLUC -- 142* 110* 108* 196* BUN -- 26 32* CREAT -- 1.09 1.28 1.18 1.21 HEPATIC: Recent Labs 07/13/25 1558 ALT 33 AST 35* TBILI 2.0* ALKPHOS 83 ALB 3.5 TPROT 6.4 URINALYSIS: Recent Labs 07/14/25 0116 SPGR 1.011 UBACTERIA None Seen LEUKEST Negative UWBC 0-5 /HPF URBC 0-3 /HPF UHB Negative UPROT Negative UGLUC Negative UKET Negative COAG: Recent Labs 07/16/25 0648 07/15/25 2242 07/15/25 14407/14/25205307/14/25 141 APTT 46.4* 43.5* 55.5* < > 37.7* INR -- -- -- -- 1.3 < > = values in this interval not displayed. CARDIAC: Recent Labs 07/13/25 1558 PBNP 17,919* Medication and Non-Pharmacologic VTE Prophylaxis/Anticoagulants Anticoagulant AND Antiplatelet Medications (From admission, onward) Start Dose Route Frequency Last Action Ordered Stop 07/14/25 1300 heparin iv infusion 25,000 units in NaCl 0.45% 250 mL LOW DOSE/ACS NOMOGRAM (Heparin Infusion + Bolus for Subtherapeutic PTTAC) 0-30 mL/hr Placed in And Linked Group 0-3,000 Units/hr IV CONTINUOUS Rate/Dose Calculated - Heparin, 07/16 0753 07/14/25 1256 -- 07/14/25 0900 aspirin 81 mg chewable tab(s) 81 mg PO DAILY Given, 07/16 0807/13/252221 -- Assessment and plan: Acute new onset HFrEF Patient admitted for worsening lower and upper extremity edema that did not improve with outpatient p.o. Lasix Echo was done-EF 31%, previously 55% 2022 Cardiology is following Patient started on GDMT, will continue to titrate based on blood pressure and heart rate Continu (more content not included)... [facility] 07-16-2025 Note HNO ID: [id number] Author: JACK ALONSO RN Service: Care Management Author Type: Registered Nurse Type: Care Mgt Progress Note Filed: 07/16/2025 10:25 Note Text: CARE MANAGEMENT PROGRESS NOTE SERVICE DATE: 07/16/2025 SERVICE TIME: 10:25 AM LOS: 3 days IMM Follow Up Copy Given: Yes Copy given to:: Patient Method: In Person SIGNATURE: Jack Alonso RN PATIENT NAME: Srini Luis DATE: July 16, 2025 TIME: 10:25 AM [facility] 07-15-2025 Note HNO ID: [id number] Author: CARLEY KEYES MD Service: General Internal Medicine Author Type: Physician Type: Progress Notes Filed: 07/15/2025 12:40 Note Text: INPATIENT PROGRESS NOTE SERVICE DATE: 07/15/2025 SERVICE TIME: 12:39 PM PRIMARY SERVICE: Hospital Medicine Subjective Patient states his lower extremity and upper extremity edema is improving Denies shortness of breath, chest pain today Current Facility-Administered Medications Medication Dose Route Frequency vancomycin dosing and monitoring per pharmacy OTHER As Directed NaCl 0.9% iv flush bag 20 mL INTRAVENOUS PRN vancomycin iv piggyback 1.25 g in D5W 250 mL (VANCOCIN) 1.25 g INTRAVENOUS q 24 HR aluminum-magnesium hydroxide-simethicone 200-200-20 mg/5 mL 30 mL 30 mL ORAL DAILY PRN ondansetron 4 mg tab(s) (ZOFRAN) 4 mg ORAL q 6 H PRN Or ondansetron (PF) 4 mg injection (ZOFRAN) 4 mg INTRAVENOUS q 6 H PRN polyethylene glycol 3350 17 g packet 17 g ORAL DAILY PRN acetaminophen 650 mg tab(s) (TYLENOL) 650 mg ORAL q 6 H PRN HYDROcodone 5 mg - acetaminophen 325 mg tablet (NORCO) 1 tablet ORAL q 6 H PRN sodium chloride 0.9 % (flush) 2-10 mL (BD POSIFLUSH) 2-10 mL INTRAVENOUS DIRECTED PRN And perflutren lipid microspheres 1.1 mg/mL 1.3 mL injection (DEFINITY) 1.3 mL INTRAVENOUS DIRECTED PRN pantoprazole DR 40 mg tab(s) (PROTONIX) 40 mg ORAL DAILY (6 AM) multivitamin-ferrous fumarate-folic acid 1 tablet (CENTRUM) 1 tablet ORAL DAILY cyanocobalamin 1,000 mcg tab(s) (VITAMIN B-12) 1,000 mcg ORAL DAILY nitroglycerin sublingual 0.6 mg tab(s) (NITROQUICK) 0.6 mg SUBLINGUAL q 5 MIN PRN folic acid 1 mg tab(s) 1 mg ORAL DAILY atorvastatin 20 mg tab(s) (LIPITOR) 20 mg ORAL DAILY levothyroxine 100 mcg tab(s) (SYNTHROID) 100 mcg ORAL DAILY aspirin 81 mg chewable tab(s) 81 mg ORAL DAILY miconazole 2 % 1 application topical powder 1 application TOPICAL BID metoprolol succinate ER 12.5 mg tab(s) (TOPROL XL) 12.5 mg ORAL DAILY heparin iv infusion 25,000 units in NaCl 0.45% 250 mL LOW DOSE/ACS NOMOGRAM 0-3,000 Units/hr INTRAVENOUS CONTINUOUS And heparin RATE CHANGE bolus 1,000-4,000 Units for subtherapeutic PTTAC results 1,000-4,000 Units INTRAVENOUS PRN magnesium sulfate 1 g in D5W 100 mL 1 g INTRAVENOUS ONCE Objective PHYSICAL EXAM: BP 118/64 Pulse 85 Temp (Src) 97.6 (Oral) Resp 17 Ht 5' 6 (1.68m) Wt 190 lb 7.6 oz (86.4kg) SpO2 92% BMI 30.76 kg/(m2). O2 Therapy: Room Air General: Not in acute distress CVS: S1-S2 normal, no murmur, No JVD RS: Clear to auscultation bilaterally Abdomen: Soft, nontender, no organomegaly Musculoskeletal: +2 upper and lower extremity edema bilaterally Neuro: AO x3, No focal deficits Psy: Cooperative, No anxiety/depression DATA: LABORATORY TESTS: CBC: Recent Labs 07/15/25 0733 07/14/25 1412 07/14/25 0509 07/13/25 1558 WBC 9.24 12.42* 11.76* 16.71* HB 10.4* 10.4* 10.7* 11.3* PLT 172 173 181 210 MCV 111.2* 112.1* 110.8* 113.5* NEUTP -- -- -- 88.7 ABSNEUT -- -- -- 14.83* LYMPHP -- -- -- 3.9 EODINP -- -- -- 0.1 CHEM: Recent Labs 07/15/25 0733 07/14/25 0509 07/13/25 1558 NA 140 139 139 K 3.9 4.4 5.5* CA 8.8 8.9 8.8 MG -- 2.2 2.0 ANION 7 10 8 CHLOR 100 98 100 CO2 33* 31 31 GLUC 110* 108* 196* BUN 25 26 32* CREAT 1.28 1.18 1.21 HEPATIC: Recent Labs 07/13/25 1558 ALT 33 AST 35* TBILI 2.0* ALKPHOS 83 ALB 3.5 TPROT 6.4 URINALYSIS: Recent Labs 07/14/25 0116 SPGR 1.011 UBACTERIA None Seen LEUKEST Negative UWBC 0-5 /HPF URBC 0-3 /HPF UHB Negative UPROT Negative UGLUC Negative UKET Negative COAG: Recent Labs 07/15/25 0803 07/14/25205307/14/25 1412 APTT 69.7* 56.1* 37.7* INR -- -- 1.3 CARDIAC: Recent Labs 07/13/25 1558 PBNP 17,919* Medication and Non-Pharmacologic VTE Prophylaxis/Anticoagulants Anticoagulant AND Antiplatelet Medications (From admission, onward) Start Dose Route Frequency Last Action Ordered Stop 07/14/25 1300 heparin iv infusion 25,000 units in NaCl 0.45% 250 mL LOW DOSE/ACS NOMOGRAM (Heparin Infusion + Bolus for Subtherapeutic PTTAC) 0-30 mL/hr Placed in And Linked Group 0-3,000 Units/hr IV CONTINUOUS Rate/Dose Calculated - Heparin, 07/15 0844 07/14/25 1256 -- 07/14/25 0900 aspirin 81 mg chewable tab(s) 81 mg PO DAILY Given, 07/15 0747 07/13/252221 -- Assessment and plan: Acute new onset HFrEF Patient admitted for worsening lower and upper extremity edema that did not improve with outpatient p.o. Lasix Echo was done-EF 31%, previously 55% 2022 Cardiology is following Patient started on GDMT, will continue to titrate based on blood pressure and heart rate Continue IV Lasix 40 mg twice daily A-fib Patient history of left atrial appendage ligation He was previously on Xarelto, cardiology recommended changing to heparin drip Monitor for signs of bleeding and blood loss Daily CBC Patient on metoprolol succinate 12 (more content not included)... [facility] 07-14-2025 Note [facility] 07-14-2025 History of Presen t illness Narrative Transitional Care Management (TCM) Inpatient Outreach N/A - No specialty updates needed Summary: Patient admitted to: [facility] Patient admitted on: (Not on file) Admitted for: CHF Contact made with patient: No, MyChart message sent. Outreach ended. Codie Summers RN July 14, 2025 documented in this encounter [facility] 07-14-2025 Note HNO ID: [id number] Author: CARLEY KEYES MD Service: General Internal Medicine Author Type: Physician Type: Progress Notes Filed: 07/14/2025 13:54 Note Text: INPATIENT PROGRESS NOTE SERVICE DATE: 07/14/2025 SERVICE TIME: 1:46 PM PRIMARY SERVICE: Hospital Medicine Subjective Continues to have +2 lower extremity and upper extremity edema Denies shortness of breath, chest pain Current Facility-Administered Medications Medication Dose Route Frequency piperacillin-tazobactam iv piggyback 3.375 g in dextrose (iso-osmotic) 50 mL (ZOSYN) 3.375 g INTRAVENOUS q 6 H vancomycin dosing and monitoring per pharmacy OTHER As Directed NaCl 0.9% iv flush bag 20 mL INTRAVENOUS PRN vancomycin iv piggyback 1.25 g in D5W 250 mL (VANCOCIN) 1.25 g INTRAVENOUS q 24 HR aluminum-magnesium hydroxide-simethicone 200-200-20 mg/5 mL 30 mL 30 mL ORAL DAILY PRN ondansetron 4 mg tab(s) (ZOFRAN) 4 mg ORAL q 6 H PRN Or ondansetron (PF) 4 mg injection (ZOFRAN) 4 mg INTRAVENOUS q 6 H PRN polyethylene glycol 3350 17 g packet 17 g ORAL DAILY PRN acetaminophen 650 mg tab(s) (TYLENOL) 650 mg ORAL q 6 H PRN HYDROcodone 5 mg - acetaminophen 325 mg tablet (NORCO) 1 tablet ORAL q 6 H PRN sodium chloride 0.9 % (flush) 2-10 mL (BD POSIFLUSH) 2-10 mL INTRAVENOUS DIRECTED PRN And perflutren lipid microspheres 1.1 mg/mL 1.3 mL injection (DEFINITY) 1.3 mL INTRAVENOUS DIRECTED PRN furosemide 40 mg injection (LASIX) 40 mg INTRAVENOUS q 12 H 6a/6p pantoprazole DR 40 mg tab(s) (PROTONIX) 40 mg ORAL DAILY (6 AM) multivitamin-ferrous fumarate-folic acid 1 tablet (CENTRUM) 1 tablet ORAL DAILY cyanocobalamin 1,000 mcg tab(s) (VITAMIN B-12) 1,000 mcg ORAL DAILY nitroglycerin sublingual 0.6 mg tab(s) (NITROQUICK) 0.6 mg SUBLINGUAL q 5 MIN PRN folic acid 1 mg tab(s) 1 mg ORAL DAILY atorvastatin 20 mg tab(s) (LIPITOR) 20 mg ORAL DAILY levothyroxine 100 mcg tab(s) (SYNTHROID) 100 mcg ORAL DAILY aspirin 81 mg chewable tab(s) 81 mg ORAL DAILY miconazole 2 % 1 application topical powder 1 application TOPICAL BID metoprolol succinate ER 12.5 mg tab(s) (TOPROL XL) 12.5 mg ORAL DAILY heparin iv infusion 25,000 units in NaCl 0.45% 250 mL LOW DOSE/ACS NOMOGRAM 0-3,000 Units/hr INTRAVENOUS CONTINUOUS And heparin RATE CHANGE bolus 1,000-4,000 Units for subtherapeutic PTTAC results 1,000-4,000 Units INTRAVENOUS PRN heparin nomogram - NO INITIAL BOLUS OTHER ONCE (heparin bolus) Objective PHYSICAL EXAM: BP 104/62 Pulse 88 Temp (Src) 97.9 (Oral) Resp 18 Ht 5' 6 (1.68m) Wt 192 lb 3.9 oz (87.2kg) SpO2 97% BMI 31.04 kg/(m2). O2 Therapy: Room Air General: Not in acute distress CVS: S1-S2 normal, no murmur, No JVD RS: Clear to auscultation bilaterally Abdomen: Soft, nontender, no organomegaly Musculoskeletal: +2 upper and lower extremity edema bilaterally Neuro: AO x3, No focal deficits Psy: Cooperative, No anxiety/depression DATA: LABORATORY TESTS: CBC: Recent Labs 07/14/25 0509 07/13/25 1558 WBC 11.76* 16.71* HB 10.7* 11.3* PLT 181 210 MCV 110.8* 113.5* NEUTP -- 88.7 ABSNEUT -- 14.83* LYMPHP -- 3.9 EODINP -- 0.1 CHEM: Recent Labs 07/14/25 0509 07/13/25 1558 NA 139 139 K 4.4 5.5* CA 8.9 8.8 MG 2.2 2.0 ANION 10 8 CHLOR 98 100 CO2 31 31 GLUC 108* 196* BUN 26 32* CREAT 1.18 1.21 HEPATIC: Recent Labs 07/13/25 1558 ALT 33 AST 35* TBILI 2.0* ALKPHOS 83 ALB 3.5 TPROT 6.4 URINALYSIS: Recent Labs 07/14/25 0116 SPGR 1.011 UBACTERIA None Seen LEUKEST Negative UWBC 0-5 /HPF URBC 0-3 /HPF UHB Negative UPROT Negative UGLUC Negative UKET Negative COAG: No results for input(s): APTT, INR in the last 168 hours. CARDIAC: Recent Labs 07/13/25 1558 PBNP 17,919* Medication and Non-Pharmacologic VTE Prophylaxis/Anticoagulants Anticoagulant AND Antiplatelet Medications (From admission, onward) Start Dose Route Frequency Last Action Ordered Stop 07/14/25 1300 heparin iv infusion 25,000 units in NaCl 0.45% 250 mL LOW DOSE/ACS NOMOGRAM (Heparin Infusion + Bolus for Subtherapeutic PTTAC) 0-30 mL/hr Placed in And Linked Group 0-3,000 Units/hr IV CONTINUOUS Ordered 07/14/25 1256 -- 07/14/25 0900 aspirin 81 mg chewable tab(s) 81 mg PO DAILY Given, 07/14 1124 07/13/252 -- Assessment and plan: Acute new onset HFrEF Patient admitted for worsening lower and upper extremity edema that did not improve with outpatient p.o. Lasix Echo was done-EF 31%, previously 55% 2022 Cardiology is following Patient started on GDMT, will continue to titrate based on blood pressure and heart rate Continue IV Lasix 40 mg twice daily A-fib Patient history of left atrial appendage ligation He was previously on Xarelto, cardiology recommended changing to heparin drip Monitor for signs of bleeding and blood loss Daily CBC Patient on metoprolol succinate 12.5 mg daily Concerns of cellulitis He was recently treated fo (more content not included)... [facility] 07-14-2025 Note HNO ID: [id number] Author: TARA HOROWITZ RN Service: Care Management Author Type: Registered Nurse Type: Care Mgt Initial Assessment Filed: 07/14/2025 12:45 Note Text: CARE MANAGEMENT: ASSESSMENT AND DISCHARGE PLAN SERVICE DATE: July 14, 2025 SERVICE TIME: 12:11 PM PCP: Ronaldo Pleitez MD Primary Contact: Extended Emergency Contact Information Primary Emergency Contact: LIZA MARK Mobile Relation: Daughter Secondary Emergency Contact: ELOISE CORTEZ Mobile Relation: Daughter Admission Status: Inpatient Insurance Provider: [employer] HMO Discharge Planning requested by: Per Department Practice Potential Transition Plans Home, No Services Indicated Advance Directives Current Advance Directive: Health Care Power of Flatbed Stitcher In Chart: Yes Up To Date and Valid: Yes Current Living Arrangements and Support Lives with: Alone Type of Residence: Private Residence (Apartment or Condo) Support: Children, Family members How do you manage to accomplish the following: Independent: Ambulation, Bathe/Shower, Dress, Meals/Meal Prep, Going to the bathroom, Medication Management Dependent: Transportation to appointments/community Current Services/Equipment Current Post-Acute Service(s): DME Current DME Type: Cane, Electric scooter Discharge Planning Patient Goal(s): Be able to go home, General wellness [place] Explained: Are you interested in bedside delivery of your medications? No Discharge Planning Participant(s): Patient Patient/Family Comments: Caregiver Assessment: Caregiver is ready, willing and able to meet the patient's needs as recommended by the inter-professional team: No Caregiver needed Transport at Discharge: Transportation Arrangements: Car Needs Prior to Discharge: Cardio clearance Intimate Partner Violence We have begun to talk to patients about safe and healthy relationships because it can have a large impact on your health. Do you feel safe around your partner or ex-partner?: Yes Food Insecurity Within the past 12 months, you worried that your food would run out before you got the money to buy more.: Never true Within the past 12 months, the food you bought just didn't last and you didn't have money to get more.: Never true Transportation Needs In the past 12 months, has lack of transportation kept you from medical appointments or from getting medications?: No In the past 12 months, has lack of transportation kept you from meetings, work, or from getting things needed for daily living?: No Housing Stability In the last 12 months, was there a time when you were not able to pay the mortgage or rent on time?: No At any time in the past 12 months, were you homeless or living in a nursing home (including now)?: No Utilities In the past 12 months has the [employer], gas, oil, or water [employer] threatened to shut off services in your home?: No Post-Acute Discharge Plan: Chart reviewed. Patient admitted from home alone for sepsis, LLE cellulitis, CHF exacerbation. Cardio consulted. Patient on RA, IVAB, pending echo. Patient A/Ox3, daughter, liza, bedside. Patient functionally independent, ambulatory with cane in the apartment, electric scooter for outings if needed. Family has privately hired [employer] through [facility] to assist in care and IADLs as needed. Patient resides in long-term apartment with all handicap accessible components. Patient current with PCP listed on file. Plan home no needs identified. CM will follow for transition of care. SIGNATURE: Tara Horowitz RN PATIENT NAME: Srini Luis DATE: July 14, 2025 TIME: 12:10 PM [facility] 07-14-2025 Note HNO ID: [id number] Author: ELVIN CAGLE RN Service: ? Author Type: Registered Nurse Type: Progress Notes Filed: 07/14/2025 09:39 Note Text: 1.3ML OF DEFINITY MIXED WITH 8.7ML OF NORMAL SALINE. 2ML OF DEFINITY GIVEN FOR ECHOCARDIOGRAM TO ENHANCE IMAGES. NO REACTION NOTED. [facility] 07-13-2025 Note HNO ID: [id number] Author: MARCELINO LAUREANO RPh Service: Pharmacy Author Type: Pharmacist Type: Plan of Care Filed: 07/13/2025 18:40 Note Text: PHARMACY MEDICATION REVIEW Patient Name: Srini Luis : 1935 The below information represents the best possible medication history: Yes Medication history completed by: ED Pharmacist Marcelino Laureano RPh Source of history: Patient: Reliability of source: patient provided a medication list from his phone, stating it was current/updated and Pharmacy records: [facility] Medication nonadherence identified: No barriers noted Preferred outpatient pharmacy: [facility] [place] [address] [phone] [facility] [phone] [facility] [address] [address] [address] [facility] [phone] Allergies: Simvastatin Other: See Comments Comment:Elevated CK Prior to Admission Medications Prescriptions Last Dose Informant Patient Reported? Taking? MULTIVITAMIN TABLET 07/13/2025 No Yes Sig: Take 1 tablet by mouth once daily. aspirin, enteric coated (ASPIRIN, ENTERIC COATED) 81 mg EC tablet 07/13/2025 Yes Yes Sig: Take 81 mg by mouth once daily. atorvastatin (LIPITOR) 20 mg tablet 07/13/2025 No Yes Sig: Take 1 tablet by mouth once daily. cholecalciferol (VITAMIN D3) 1,000 unit tab tablet 07/13/2025 Yes Yes Sig: Take 1,000 Units by mouth once daily. cyanocobalamin (VITAMIN B-12) 1,000 mcg tab 07/13/2025 Yes Yes Sig: Take 1,000 mcg by mouth once daily. folic acid 1 mg tablet 07/13/2025 No Yes Sig: Take 1 tablet by mouth once daily. furosemide (LASIX) 40 mg tablet 07/13/2025 Morning No Yes Sig: Take 1 tablet by mouth two times a day. AM and noon. levothyroxine (SYNTHROID) 100 mcg tablet 07/13/2025 No Yes Sig: Take 1 tablet by mouth once daily. Take on empty stomach nitroglycerin sublingual (NITROQUICK) 0.4 mg SL tablet Yes Yes Sig: nitroglycerin 0.4 mg sublingual tablet polyethylene glycol 3350 (MIRALAX, GLYCOLAX) 17 gram packet Yes Yes Sig: Take 17 g by mouth once daily as needed for constipation. Dissolve dose in 4 - 8 ounces of liquid and take as directed. potassium chloride ER (KLOR-CON M20) 20 mEq tablet 07/13/2025 Morning No Yes Sig: Take 2 tablets by mouth two times a day. rivaroxaban (XARELTO) 20 mg tablet 07/12/2025 No Yes Sig: Take 1 tablet by mouth daily with dinner. Resume Sep 20 2022 Patient taking differently: Take 20 mg by mouth daily with dinner. Facility-Administered Medications: None Marcelino Laureano RPh 07/13/2025 [facility] 07-07-2025 Note [facility] 07-07-2025 History of Presen t illness Narrative Aranesp injection deferred, treatment parameter not met. Hgb 10.7 For all other information regarding today, see today's OV note with Dr Galloway. Esha Jackson LPN documented in this encounter [facility] 07-07-2025 Note [facility] 07-07-2025 History of Presen t illness Narrative Diagnosis: [...] (with VAFs): SF3B1 p.H662Q (41.7%) and TET2 p.[id number] (46%). The overall findings are consistent with a 2021 [facility] and 5th edition WHO diagnosis of chronic [...] as an outlier. Normal cytogenetics. Moved from [place] to assisted living at [facility]. Established care here. Drives. Current therapy: 1) Azacitidine. Cycle 10/14/2023. Most recent cycle 05/2023. He was also diagnosed with acute DVT of the internal jugular vein on the right. This occurred despite anticoagulation with rivaroxaban. Port was removed. He was admitted to [facility] 05/15 through 05/18 for gram-negative bacteremia attributed to right lower extremity cellulitis. He was initially treated with IV broad-spectrum antibiotics including Zosyn and discharged on Levaquin. Blood cultures cleared prior to discharge. Presents for ongoing oncologic management. Interim history: He was admitted to [facility] with bilateral lower extremity cellulitis. He had rather rapid worsening of lower extremity edema. Reviewed his weight curve. Significant weight gain after he was seen here at the end of May. He recalls having an EKG at [facility]. (I checked the electronic record. It demonstrated atrial fibrillation with occasional ventricular paced complexes, right bundle branch block, possible lateral infarct age undetermined with a ventricular rate of 80 bpm. Overall he is been feeling more weak and tired lately. When I asked him about diuresis with furosemide he says it definitely makes him urinate more than normal. 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 ([facility]) 12/01/2022 CVA (cerebral vascular accident) ([facility]) 08/22/2022 Diverticulosis H/O echocardiogram 09/16/2022 EF 68 5 %, mod concentric LVH, mod TR, mild-mod MR with mod MAC History of anemia History of CVA (cerebrovascular accident) 08/22/2022 Pontine infarction, R>L History of stress test 10/12/2024 EF 43%, mild ischemia involving the apex 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 Vitamin D deficiency 07/11/2020 PAST SURGICAL HISTORY Procedure Laterality Date ANKLE RIGHT OP SURGERY Right 12/18/2020 Dr Arreola [facility] ARTHROPLASTY TOTAL SHOULDER 11/09/2008 right ARTHROSCOPY OF JOINT UNLISTED 2000 [place] right CABG (4) VEIN GRAFTS & ARTERIAL GRAFT(S) 07/21/2021 In [facility] COLONOSCOPY FLX DX W/COLLJ SPEC WHEN PFRMD 09/01/2005 Colonoscopy COLONOSCOPY FLX DX W/COLLJ SPEC WHEN PFRMD 09/27/2015 Colonoscopy REMOVAL OF TONSILS,<12 Y/O S $ DUAL CHMBR PACER C1785 Left 09/17/2022 Dual Pacer (FantrotterroniChomp) for High Grade AV Blk below His; 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 ALLERGIES Allergen Reactions Simvastatin Other: See Comments Elevated CK Current Outpatient Medications Medication Sig potassium chloride ER (KLOR-CON M20) 20 mEq tablet Take 2 tablets by mouth two times a day. furosemide (LASIX) 40 mg tablet Take 1 [...] Take 1 tablet by mouth once daily. amoxicillin-clavulanate potassium (AUGMENTIN) 875-125 mg per tablet Take 1 tablet by mouth two times a day. (Patient not taking: Reported on 07/07/2025) No current facility-administered medications for this visit. Social History Tobacco Use Smoking status: Former Current packs/day: 0.00 Types: Cigarettes Quit date: 08/11/1989 Years since quittin.9 Passive exposure: Past Smokeless tobacco: Never Tobacco [...] Denies shortness of breath at rest. CVS: See above. GI: Denies dysphagia and odynophagia. Denies reflux, n/v. : Denies dysuria or gross hematuria. Endo: Denies hot flashes. Denies polyuria and polydipsia. Denies heat and cold intolerance. Musculoskeletal: Lower back pain when walking--stable. Derm: Denies rash. Denies jaundice and diffuse pruritis. Heme: See HPI. Psych: Normal mood. PHYSICAL EXAM: Vitals: Blood pressure 120/87, pulse (!) 43, temperature 36.2 C (97.1 F), temperature source Temporal, weight 83.2 kg (183 lb 8 oz), SpO2 96%. Fatigue-appearing and in no acute distress. EYES: Sclerae are anicteric bilaterally. CARDIOVASCULAR: Rhythm is regular on today's exam. ABDOMEN: The abdomen is nondistended Extremities: Worsening of bilateral lower extremity swelling. However his daughter endorses it is lower than it was when he was in the hospital. ASSESSMENT/PLAN: (C93.10) Chronic myelomonocytic leukemia not having [...] incurred with repeated RBC transfusions over time. - Recent hospitalization for lower extremity cellulitis. Worsening lower extremity edema. Weight curve reviewed. Discussed with him updating EKG due to low pulse rate and obtaining echocardiogram. -Today CBC reviewed. Hemoglobin greater than 10 g/dL. Drop in platelets to 181,000. Previously in the 230-300,000 range. May have been due to recent hospitalization, sepsis and antibiotic use. Discussed continued monitoring. Plan: -EKG today--81 bpm. -Echocardiogram when able. -Will communicate results of echocardiogram to his senior medical director. -Continue every 2 week Aranesp if Hgb < 10.0 g/dL. -Okay to continue ASA and rivaroxaban. -OV/CBC/CMP/iron studies/erythropoietin/B12/MMA/ serum folate in about 3 months. Portions of this documentation were copied and pasted from my previous office visit note dated 01/06/2025 in order to provide a cohesive continuity of the history. The note has been reviewed and edited and updated as necessary. I spent a total of 30 minutes on the date of the service which included preparing to see the patient, [id number] patient care, completing clinical documentation, performing a medically appropriate examination, counseling and educating the patient/family/caregiver, ordering medications, tests, or procedures, communicating with other HCPs (not separately reported), and communicating results to the patient/family/caregiver. Baljinder Galloway DO documented in this encounter [facility] 06-30-2025 Telephone encounter Note Faxed order and daughter notified Lupis Clarke MA [facility] 06-30-2025 Miscellaneous Notes Faxed order and daughter notified Lupis Clarke MA ASSESSMENT/PLAN: 1. 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 Spinal stenosis of lumbar region with neurogenic claudication - ICD9: 724.03, ICD10: M48.062 - SEAT LIFT MECHANISM COMBL Ronaldo Pleitez MD Patient's Daughter Liza calls and is asking provider can write an order for a lift recliner? Patient is unable to operate his manual recliner anymore. If agreeable please fax order to [facility] at [phone]. Mary Ann Pabon RN documented in this encounter [facility] 06-30-2025 Telephone encounter Note ASSESSMENT/PLAN: 1. 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 Patient is unable to operate his manual recliner anymore. If agreeable please fax order to [facility] at [phone]. Mary Ann Pabon RN [facility] 06-29-2025 Note [facility] 06-29-2025 History of Presen t illness Narrative Subjective Srini Luis is a 89 year old male. Patient presents with: Hospital F/U Srini was admitted 06/23 to 06/26 for cellulitis of the left leg, CAD, CKD, Afib,. He was treated with CITLALLI wraps, and IV Unasyn. He was discharged on Augmentin BID for 5 days. Potassium 40 meq BID was added due to hypokalemia. He was better. He scraped the skin off his left dorsal hand trying to apply his compression stockings. His blister of the left foot was drying up. He had a few stasis ulcers (2) on each leg with moist, and the one in the right lower leg was seeping some. Review of Systems Constitutional: Negative for fever. Respiratory: Negative for cough and shortness of breath. Cardiovascular: Negative for chest pain and palpitations. Genitourinary: Positive for frequency. 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 ([facility]) Cva (Cerebral Vascular Accident) ([facility]) Fdc Current Use of Anticoagulant Lymphedema of Both Lower Extremities Osteoarthritis, Generalized Benign Hypertension Diverticulosis Nocturnal Hypoxemia Rbbb Restless Leg Syndrome Mds (Myelodysplastic Syndrome) ([facility]) Myasthenia Gravis ([facility]) Vertebral Artery Occlusion, Left Venous Stasis of Both Lower Extremities Status Post Ligation of Left Atrial Appendage Pvc's (Premature Ventricular Contractions) 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 ([facility]) History of Cva (Cerebrovascular Accident) Chronic Atrial Fibrillation ([facility]) Chb (Complete Heart Block) ([facility]) Objective BP 118/72 (BP Site: Left Arm, BP Position: Sitting, BP Cuff Size: Large Adult) Pulse 72 Wt 81 kg (178 lb 9.2 oz) BMI 27.97 kg/m Physical Exam Constitutional: General: He is not in acute distress. Appearance: He is not ill-appearing. HENT: Head: Normocephalic. Eyes: Conjunctiva/sclera: Conjunctivae normal. Cardiovascular: Rate and Rhythm: Normal rate. Rhythm irregular. Heart sounds: S1 normal and S2 normal. Musculoskeletal: Right lower le+ Pitting Edema present. Left lower le+ Pitting Edema present. Skin: Findings: Erythema (Fading stocking like erythema of both legs, left more than right.) present. Comments: See HPI. Neurological: General: No focal deficit present. Mental Status: He is alert. Comments: On wheelchair. ASSESSMENT/PLAN: 1. Cellulitis of left leg - ICD9: 682.6, ICD10: L03.116 (primary diagnosis) - Finish antibiotic. 2. Lymphedema of both lower extremities - ICD9: 457.1, ICD10: I89.0 Medication list clarified. - POTASSIUM CHLORIDE ER 20 MEQ TABLET,EXTENDED RELEASE(PART/CRYST) 3. 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, unspecified acute renal failure type (HCC) - ICD9: 584.9, 585.3, ICD10: N17.9, N18.32 - eGFR: 51 Improving - Counseled on avoiding NSAIDs, adequate hydration 4. Chronic heart failure with preserved ejection fraction (HCC) - ICD9: 428.9, ICD10: I50.32 - Compensated - Continue current medications - POTASSIUM CHLORIDE ER 20 MEQ TABLET,EXTENDED RELEASE(PART/CRYST) 5. 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 6. Multiple skin tears - ICD9: 879.8, ICD10: T14.8XXA - Wound care done. Ronaldo Pleitez MD documented in this encounter [facility] 06-26-2025 Discharge summary [facility] 06-26-2025 Discharge summary [facility] 06-26-2025 Note [facility] Medical Records Department [address] [address] Discharge Summary 06/26/25 1041 MR#: [id number] Acct: [id number] Name: SRINI LUIS Rep #: [id number] : 1935 89 From: Marshal Rebolledo MD PCP: Dr. Ronaldo Pleitez MD Status:ADM IN Location: MS3 [id number] Providers Date of Admission: 06/23/25 Date of Discharge: 06/26/25 Primary Care Physician: Dr. Ronaldo Pleitez MD Reason For Visit: LEFT LOWER EXTREMITY CELLULITIS Diagnosis Discharge Diagnosis (1) Cellulitis of left leg: Status: Acute Code(s): L03.116 - Cellulitis of left lower limb Plan Patient was admitted with left lower extremity swelling, pain, induration which has failed outpatient treatment therefore admitted for IV antibiotic. Patient was admitted with ER with increased left lower extremity swelling, redness pain started from ankle and progressed proximally for 1 week. No fever. Patient also had blister and dorsum of left foot which has ruptured spontaneously. He failed outpatient treatment for cellulitis # Left lower extremity cellulitis - Failed outpatient management with oral antibiotics. No leukocytosis. - Will treat with IV Unasyn, no evidence of any purulence and patient does not have known history of diabetes so feel that this would be sufficient coverage at this time - Elevate extremity, Citlalli wrap bandage Patient had venous duplex on 06/19 as an outpatient which did not show superficial or DVT in the left lower extremity. It shows nonvascular anechoic left popliteal fossa cyst 6.01 x 1.41 stable popliteal cyst. 06/25 continue antibiotic. Cellulitis is improving. Home health PT prescription signed. Anticipate discharge tomorrow 06/26: Discharged on 5 more days of Augmentin. Had 3.5 days of IV antibiotics #Hx of CAD -w/ previous CABG -Continue [...] baseline closer to 1 -Avoid nephrotoxic agents -Repeat labs shows BUN/creatinine 37/1.37, slight decrease from admitting creatinine. Does not meet criteria for DANE. 06/26: Kidney function is on baseline. BUN/furosemide 40 mg p.o. twice daily and metolazone. History. Potassium supplement at home but not. Discharged on KCl 40 mEq twice daily and advised to follow with PCP, BMP in 1 week # History of CVA - Continue home medications - Heart healthy diet #Paroxysmal Atrial Fibrillation - Continue Xarelto #Hypothyroidism -Continue Synthroid #DVT ppx: Patient already on full dose anticoagulation with Xarelto Discharge medication reconciliation done. Discharge follow-up instructions completed. Discharge process discussed with the patient and all questions were answered to patient's satisfaction. Follow with PCP in 1 to 2 weeks Total time spent, exact 35 minutes on discharge meds reconciliation, examination, coordination of care with nurses and ancillary staff, review of imaging and blood test and discussion with the patient on follow-up instructions. 06/23/25 14:23: WBC 6.8, RBC 2.65 L, Hgb 9.7 L, Hct 29.5 L, MCV 111.3 H, MCH 36.6 H, MCHC 32.9, RDW Std Deviation 109.9 H, RDW Coeff of Luis Alberto 26.7 H, Plt Count 230, MPV 10.6, Immature Gran % (Auto) 0.300, Neut % (Auto) 68.2, Lymph % (Auto) 14.5 L, Ward % (Auto) 15.5 H, Eos % (Auto) 0.9, Baso % (Auto) 0.6, Absolute Neuts (auto) 4.7, Absolute Lymphs (auto) 0.99, Nucleated RBC % 0.7, Differential Comment SCANNED, Platelet Estimate ADEQUATE, Polychromasia 1+, Hypochromasia 1+, Anisocytosis 2+, Sodium 138, Potassium 3.3, Chloride 92 L, Carbon Dioxide 32.5 H, Anion Gap 13, BUN 41 H, Creatinine 1.43 H, Estim Creat Clear Calc 36.06 L, Est GFR (MDRD) Non-Af 47 L, BUN/Creatinine Ratio 28.4 H, G lucose 160 H, Calcium 9.0 06/24/25 05:50: WBC 6.9, RBC 2.59 L, Hgb 9.3 L, Hct 28.6 L, MCV 110.4 H, MCH 35.9 H, MCHC 32.5, RDW Std Deviation 108.7 H, RDW Coeff of Luis Alberto 26.6 H, Plt Count 226, MPV 11.1, Immature Gran % (Auto) 0.400, Neut % (Auto) 69.2, Lymph % (Auto) 12.5 L, Ward % (Auto) 15.6 H, Eos % (Auto) 1.7, Baso % (Auto) 0.6, Absolute Neuts (auto) 4.7, Absolute Lymphs (auto) 0.86, Nucleated RBC % 0.9, Differential Comment SCANNED, Hypochromasia 1+, Anisocytosis 2+, Sodium 138, Potassium 3.0 L, Chloride 94 L, Carbon Dioxide 31.4, Anion Gap 13, BUN 37 H, Creatinine 1.37 H, Estim Creat Clear Calc 36.30 L, Est GFR (MDRD) Non-Af 49 L, BUN/Creatinine Ratio 27.3 H, G lucose 119 H, Calcium 8.7 Medications at Discharge Home Medications cholecalciferol (vitamin D3) 25 mcg (1,000 unit) tablet 25 mcg PO DAILY 04/09/23 cyanocobalamin (vitamin B-12) 1,000 mcg capsule 1,000 mcg PO DAILY 04/09/23 multivitamin 1 tab PO DAILY 04/09/23 rivaroxaban 20 mg tablet (Xarelto) 20 m (more content not included)... [facility] 06-25-2025 Progress note Note Date/Time June 25, 2025 11:20am [facility] Medical Records Department [address] [place] [address] Progress Note - Hospitalist 06/25/257 MR#: [id number] Acct: [id number] Name: SRINI LUIS Rep #:[id number] : 1935 89 From: Marshal Nuñez PCP: Dr. Ronaldo Pleitez MD Status:A DM IN Location: MS3 [id number] Reason for Visit Chief Complaint: Increasing left lower extremity swelling Objective Data Objective Data Vital Signs: Vital Signs Temp Pulse Resp BP Pulse Ox O2 Del Method O2 Flow Rate 98.1 F 92 18 127/56 H 92 Room Air 2 06/25/25 09:55 06/25/25 09:55 06/25/25 09:55 06/25/25 09:55 06/25/25 09:55 06/25/25 09:57 06/25/25 05:00 Oxygen Flow Rate (L/min) 2 Oxygen Delivery Method Room Air Weight: 176 lb Body Mass Index (BMI) 28.4 Intake & Output: Intake and Output for Last 24 Hours 06/23/25 06/24/25 06/25/25 23:59 23:59 23:59 Intake Total 201 / 501 1499 / 1499 800 / 800 Balance 201 / 501 1499 / 1499 800 / 800 Lab / Micro Data 06/24/25 05:50 06/24/25 05:50 Physical Exam Narrative Seen and examined Patient moved bowels yesterday x 2. Redness looks better. Physical exam General: Alert, Oriented x3, Cooperative HEENT: Atraumatic, PERRLA, EOMI, Normocephalic. Oral: No Gingival or Mucosal Lesions/ Ulcerations Neck: Supple, No JVD, Negative Carotid Bruits Chest wall/Lungs: Air entry diminished in bilateral lung bases. No crepitation/rhonchi Cardiovascular: Sinus irregular rhythm, PVCs systolic murmur Abdomen: Bowel Sounds Present, Soft, Non Tender, Non-Distended : No dysuria. No renal angle tenderness. No suprapubic tenderness. Extremities: No edema, Capillary Refill Less than 3 Seconds Skin: Ruptured blister on dorsum of left foot. No obvious ulcer Musculoskeletal: Redness, tenderness erythema and swelling of left leg below knee level improving. Mild swelling and redness on right lower leg but mild in compared to left leg. No Tenderness to Palpation of Joints or Extremities Neurological: Cranial nerves II-XII grossly intact, DTR 2+/4. No acute focal neurological deficit. Psych/Mental Status: Flat affect Assessment & Plan Assessment/Plan (1) Cellulitis of left leg: PLAN: Plan Patient was admitted with left lower extremity swelling, pain, induration which has failed outpatient treatment therefore admitted for IV antibiotic. Patient was admitted with ER with increased left lower extremity swelling, redness pain started from ankle and progressed proximally for 1 week. No fever. Patient also had blister and dorsum of left foot which has ruptured spontaneously. He failed outpatient treatment for cellulitis # Left lower extremity cellulitis - Failed outpatient management with oral antibiotics. No leukocytosis. - Will treat with IV Unasyn, no evidence of any purulence and patient does not have known history of diabetes so feel that this would be sufficient coverage atthis time - Elevate extremity, Citlalli wrap bandage Patient had venous duplex on 06/19 as an outpatient which did not show superficial or DVT in the left lower extremity. It shows nonvascular anechoic left popliteal fossa cyst 6.01 x 1.41 stable popliteal cyst. 06/25 continue antibiotic. Cellulitis is improving. Home health PT prescriptionsigned. Anticipate discharge tomorrow #Hx of CAD -w/ previous CABG -Continue [...] baseline closer to 1 -Avoid nephrotoxic agents -Repeat labs shows BUN/creatinine 37/1.37, slight decrease from admitting creatinine. Does not meet criteria for DANE. # History of CVA - Continue home medications - Heart healthy diet #Paroxysmal Atrial Fibrillation - Continue Xarelto #Hypothyroidism -Continue Synthroid #DVT ppx: Patient already on full dose anticoagulation with Xarelto 06/23/25 14:23: WBC 6.8, RBC 2.65 L, Hgb 9.7 L, Hct 29.5 L, MCV 111.3 H, MCH 36.6 H, MCHC 32.9, RDW Std Deviation 109.9 H, RDW Coeff of Luis Alberto 26.7 H, Plt [id number], MPV 10.6, Immature Gran % (Auto) 0.300, Neut % (Auto) 68.2, Lymph % (Auto) 14.5 L, Ward % (Auto) 15.5 H, Eos % (Auto) 0.9, Baso % (Auto) 0.6, Absolute Neuts (auto) 4.7, Absolute Lymphs (auto) 0.99, Nucleated RBC % 0.7, DifferentialComment SCANNED, Platelet Estimate ADEQUATE, Polychromasia 1+, Hypochromasia 1+,Anisocytosis 2+, Sodium 138, Potassium 3.3, Chloride 92 L, Carbon Dioxide 32.5 H, Anion Gap 13, BUN 41 H, Creatinine 1.43 H, Estim Creat Clear Calc 36.06 L, Est GFR (MDRD) Non-Af 47 L, BUN/Creatinine Ratio 28.4 H, Glucose 160 H, Calcium 9.0 06/24/25 05:50: WBC 6.9, RBC 2.59 L, Hgb 9.3 L, Hct 28.6 L, MCV 110.4 H, MCH 35.9 H, MCHC 32.5, RDW Std Deviation 108.7 H, RDW Coeff of Luis Alberto 26.6 H, Plt [id number], MPV 11.1, Immature Gran % (Auto) 0.400, Neut % (Auto) 69.2, Lymph % (Auto) 12.5 L, Ward % (Auto) 15.6 H, Eos % (Auto) 1.7, Baso % (Auto) 0.6, Absolute Neuts (auto) 4.7, Absolute Lymphs (auto) 0.86, Nucleated RBC % 0.9, DifferentialComment SCANNED, Hypochromasia 1+, Anisocytosis 2+, Sodium 138, Potassium 3.0 L, Chloride 94 L, Carbon Dioxide 31.4, Anion Gap 13, BUN 37 H, Creatinine 1.37 H, Estim Creat Clear Calc 36.30 L, Est GFR (MDRD) Non-Af 49 L, BUN/Creatinine Ratio 27.3 H, Glucose 119 H, Calcium 8.7 Charges/Coding Visit Charges Inpatient E&M: 41909 Subs Hosp L2 06/25/25 1120 <Electronically signed by Marshal Rebolledo MD> Cosigner Signature (if applicable): CC: ~ Signed [facility] Work Phone: [phone] 861-202408-17-2025 Progress note [facility] Medical Records Department [address] [place] [id number] Progress Note - Hospitalist 06/25/25 1117 MR#: [id number] Acct: [id number] Name: SRINI LUIS Rep #:[id number] : 1935 89 From: Marshal Nuñez PCP: Dr. Ronaldo Pleitez MD Status:A DM IN Location: MS3 [id number] Reason for Visit Chief Complaint: Increasing left lower extremity swelling Objective Data Objective Data Vital Signs: Vital Signs Temp Pulse Resp BP Pulse Ox O2 Del Method O2 Flow Rate 98.1 F 92 18 127/56 H 92 Room Air 2 06/25/25 09:55 06/25/25 09:55 06/25/25 09:55 06/25/25 09:55 06/25/25 09:55 06/25/25 09:57 06/25/25 05:00 Oxygen Flow Rate (L/min) 2 Oxygen Delivery Method Room Air Weight: 176 lb Body Mass Index (BMI) 28.4 Intake & Output: Intake and Output for Last 24 Hours 06/23/25 06/24/25 06/25/25 23:59 23:59 23:59 Intake Total 201 / 501 1499 / 1499 800 / 800 Balance 201 / 501 1499 / 1499 800 / 800 Lab / Micro Data 06/24/25 05:50 06/24/25 05:50 Physical Exam Narrative Seen and examined Patient moved bowels yesterday x 2. Redness looks better. Physical exam General: Alert, Oriented x3, Cooperative HEENT: Atraumatic, PERRLA, EOMI, Normocephalic. Oral: No Gingival or Mucosal Lesions/ Ulcerations Neck: Supple, No JVD, Negative Carotid Bruits Chest wall/Lungs: Air entry diminished in bilateral lung bases. No crepitation/rhonchi Cardiovascular: Sinus irregular rhythm, PVCs systolic murmur Abdomen: Bowel Sounds Present, Soft, Non Tender, Non-Distended : No dysuria. No renal angle tenderness. No suprapubic tenderness. Extremities: No edema, Capillary Refill Less than 3 Seconds Skin: Ruptured blister on dorsum of left foot. No obvious ulcer Musculoskeletal: Redness, tenderness erythema and swelling of left leg below knee level improving. Mild swelling and redness on right lower leg but mild in compared to left leg. No Tenderness to Palpation of Joints or Extremities Neurological: Cranial nerves II-XII grossly intact, DTR 2+/4. No acute focal neurological deficit. Psych/Mental Status: Flat affect Assessment & Plan Assessment/Plan (1) Cellulitis of left leg: PLAN: Plan Patient was admitted with left lower extremity swelling, pain, induration which has failed outpatient treatment therefore admitted for IV antibiotic. Patient was admitted with ER with increased left lower extremity swelling, redness pain started from ankle and progressed proximally for 1 week. No fever. Patient also had blister and dorsum of left foot which has ruptured spontaneously. He failed outpatient treatment for cellulitis # Left lower extremity cellulitis - Failed outpatient management with oral antibiotics. No leukocytosis. - Will treat with IV Unasyn, no evidence of any purulence and patient does not have known history of diabetes so feel that this would be sufficient coverage atthis time - Elevate extremity, Citlalli wrap bandage Patient had venous duplex on 06/19 as an outpatient which did not show superficial or DVT in the left lower extremity. It shows nonvascular anechoic left popliteal fossa cyst 6.01 x 1.41 stable popliteal cyst. 06/25 continue antibiotic. Cellulitis is improving. Home health PT prescriptionsigned. Anticipate discharge tomorrow #Hx of CAD -w/ previous CABG -Continue [...] baseline closer to 1 -Avoid nephrotoxic agents -Repeat labs shows BUN/creatinine 37/1.37, slight decrease from admitting creatinine. Does not meetcriteria for DANE. # History of CVA - Continue home medications - Heart healthy diet #Paroxysmal Atrial Fibrillation - Continue Xarelto #Hypothyroidism -Continue Synthroid #DVT ppx: Patient already on full dose anticoagulation with Xarelto 06/23/25 14:23: WBC 6.8, RBC 2.65 L, Hgb 9.7 L, Hct 29.5 L, MCV 111.3 H, MCH 36.6 H, MCHC 32.9, RDWStd Deviation 109.9 H, RDW Coeff of Luis Alberto 26.7 H, Plt [id number], MPV 10.6, Immature Gran % (Auto) 0.300, Neut % (Auto) 68.2, Lymph % (Auto) 14.5 L, Ward % (Auto) 15.5 H, Eos % (Auto) 0.9, Baso % (Auto) 0.6, Absolute Neuts (auto) 4.7, Absolute Lymphs (auto) 0.99, Nucleated RBC % 0.7, DifferentialComment SCANNED, Platelet Estimate ADEQUATE, Polychromasia 1+, Hypochromasia 1+,Anisocytosis 2+, Sodium 138, Potassium 3.3, Chloride 92 L, Carbon Dioxide 32.5 H, Anion Gap 13, BUN 41 H, Creatinine1.43 H, Estim Creat Clear Calc 36.06 L, Est GFR (MDRD) Non- Af 47 L, BUN/Creatinine Ratio 28.4 H, Glucose 160 H, Calcium 9.0 06/24/25 05:50: WBC 6.9, RBC 2.59 L, Hgb 9.3 L, Hct 28.6 L, MCV 110.4 H, MCH 35.9 H, MCHC 32.5, RDWStd Deviation 108.7 H, RDW Coeff of Luis Alberto 26.6 H, Plt [id number], MPV 11.1, Immature Gran % (Auto) 0.400, Neut % (Auto) 69.2, Lymph % (Auto) 12.5 L, Ward % (Auto) 15.6 H, Eos % (Auto) 1.7, Baso % (Auto) 0.6, Absolute Neuts (auto) 4.7, Absolute Lymphs (auto) 0.86, Nucleated RBC % 0.9, DifferentialComment SCANNED, Hypochromasia 1+, Anisocytosis 2+, Sodium 138, Potassium 3.0 L, Chloride 94 L, Carbon Dioxide 31.4, Anion Gap 13, BUN 37 H, Creatinine1.37 H, Estim Creat Clear Calc 36.30 L, Est GFR (MDRD) Non- Af 49 L, BUN/Creatinine Ratio 27.3 H, Glucose 119 H, Calcium 8.7 Charges/Coding Visit Charges Inpatient E&M: 10233 Subs Hosp L2 06/25/25 1120 Cosigner Signature (if applicable): CC: ~ Signed [facility]08-16-2025 Progress note Author Marshal Rebolldeo [facility] Note Date/Time June 24, 2025 2: 28pm [facility] Medical Records Department [address] [place] [address] Progress Note - Hospitalist 06/24/25 1015 MR#: [id number] Acct: [id number] Name: DOMINGOSRINI DALY Rep #:[id number] : 1935 89 From: Marshal Nuñez PCP: Dr. Ronaldo Pleitez MD Status:A DM IN Location: MS3 [id number] Reason for Visit Chief Complaint: Increasing left lower extremity swelling Objective Data Objective Data Vital Signs: Vital Signs Temp Pulse Resp BP Pulse Ox O2 Del Method 98.2 F 55 L 18 129/62 H 92 Room Air 06/24/25 04:32 06/24/25 04:32 06/24/25 04:32 06/24/25 04:32 06/24/25 04:32 06/24/25 04:32 Oxygen Delivery Method Room Air Weight: 176 lb Body Mass Index (BMI) 28.4 Intake & Output: Intake and Output for Last 24 Hours 06/22/25 06/23/25 06/24/25 23:59 23:59 23:59 Intake Total 201 / 501 700 / 700 Balance 201 / 501 700 / 700 Lab / Micro Data 06/24/25 05:50 06/24/25 05:50 Labs: Laboratory Results - last 24 hr 06/23/25 14:23: WBC 6.8, RBC 2.65 L, Hgb 9.7 L, Hct 29.5 L, MCV 111.3 H, MCH 36.6 H, MCHC 32.9, RDW Std Deviation 109.9 H, RDW Coeff of Luis Alberto 26.7 H, Plt [id number], MPV 10.6, Immature Gran % (Auto) 0.300, Neut % (Auto) 68.2, Lymph % (Auto) 14.5 L, Ward % (Auto) 15.5 H, Eos % (Auto) 0.9, Baso % (Auto) 0.6, Absolute Neuts (auto) 4.7, Absolute Lymphs (auto) 0.99, Nucleated RBC % 0.7, DifferentialComment SCANNED, Platelet Estimate ADEQUATE, Polychromasia 1+, Hypochromasia 1+,Anisocytosis 2+, Sodium 138, Potassium 3.3, Chloride 92 L, Carbon Dioxide 32.5 H, Anion Gap 13, BUN 41 H, Creatinine 1.43 H, Estim Creat Clear Calc 36.06 L, EstGFR (MDRD) Non-Af 47 L, BUN/Creatinine Ratio 28.4 H, Glucose 160 H, Calcium 9.0 06/24/25 05:50: WBC 6.9, RBC 2.59 L, Hgb 9.3 L, Hct 28.6 L, MCV 110.4 H, MCH 35.9 H, MCHC 32.5, RDW Std Deviation 108.7 H, RDW Coeff of Luis Alberto 26.6 H, Plt [id number], MPV 11.1, Immature Gran % (Auto) 0.400, Neut % (Auto) 69.2, Lymph % (Auto) 12.5 L, Ward % (Auto) 15.6 H, Eos % (Auto) 1.7, Baso % (Auto) 0.6, Absolute Neuts (auto) 4.7, Absolute Lymphs (auto) 0.86, Nucleated RBC % 0.9, DifferentialComment SCANNED, Hypochromasia 1+, Anisocytosis 2+, Sodium 138, Potassium 3.0 L,Chloride 94 L, Carbon Dioxide 31.4, Anion Gap 13, BUN 37 H, Creatinine 1.37 H, Estim Creat Clear Calc 36.30 L, Est GFR (MDRD) Non-Af 49 L, BUN/Creatinine Ratio 27.3 H, Glucose 119 H, Calcium 8.7 Physical Exam Narrative Seen and examined Patient came to ER with increased left lower extremity swelling, redness pain started from ankle and progressed proximally for 1 week. No fever. Patient also had blister and dorsum of left foot which has ruptured spontaneously. He failed outpatient treatment for cellulitis Physical exam General: Alert, Oriented x3, Cooperative HEENT: Atraumatic, PERRLA, EOMI, Normocephalic. Oral: No Gingival or Mucosal Lesions/ Ulcerations Neck: Supple, No JVD, Negative Carotid Bruits Chest wall/Lungs: Air entry diminished in bilateral lung bases. No crepitation/rhonchi Cardiovascular: Sinus irregular rhythm, PVCs systolic murmur Abdomen: Bowel Sounds Present, Soft, Non Tender, Non-Distended : No dysuria. No renal angle tenderness. No suprapubic tenderness. Extremities: No edema, Capillary Refill Less than 3 Seconds Skin: Ruptured blister on dorsum of left foot. No obvious ulcer Musculoskeletal: Redness, tenderness erythema and swelling of left leg below knee level. Mild swelling and redness on right lower leg but mild in compared to left leg. No Tenderness to Palpation of Joints or Extremities Neurological: Cranial nerves II-XII grossly intact, DTR 2+/4. No acute focal neurological deficit. Psych/Mental Status: Flat affect Seen and examined. General: Alert, no apparent distress HEENT: Atraumatic, [...] reported on palpation or fluctuance Psych: Cooperative Assessment & Plan Assessment/Plan (1) Cellulitis of left leg: PLAN: Plan Patient was admitted with left lower extremity swelling, pain, induration which has failed outpatient treatment therefore admitted for IV antibiotic. Superficial blister on left dorsum of foot has ruptured. # Left lower extremity cellulitis - Failed outpatient management with oral antibiotics. No leukocytosis. - Will treat with IV Unasyn, no evidence of any purulence and patient does not have known history of diabetes so feel that this would be sufficient coverage atthis time - Elevate extremity, Citlalli wrap bandage Patient had venous duplex on 06/19 as an outpatient which did not show superficial or DVT in the left lower extremity. It shows nonvascular anechoic left popliteal fossa cyst 6.01 x 1.41 stable popliteal cyst. #Hx of CAD -w/ previous CABG -Continue [...] baseline closer to 1 -Avoid nephrotoxic agents -Repeat labs shows BUN/creatinine 37/1.37, slight decrease from admitting creatinine. Does not meet criteria for DANE. # History of CVA - Continue home medications - Heart healthy diet #Paroxysmal Atrial Fibrillation - Continue Xarelto #Hypothyroidism -Continue Synthroid #DVT ppx: Patient already on full dose anticoagulation with Xarelto 06/23/25 14:23: WBC 6.8, RBC 2.65 L, Hgb 9.7 L, Hct 29.5 L, MCV 111.3 H, MCH 36.6 H, MCHC 32.9, RDW Std Deviation 109.9 H, RDW Coeff of Luis Alberto 26.7 H, Plt [id number], MPV 10.6, Immature Gran % (Auto) 0.300, Neut % (Auto) 68.2, Lymph % (Auto) 14.5 L, Ward % (Auto) 15.5 H, Eos % (Auto) 0.9, Baso % (Auto) 0.6, Absolute Neuts (auto) 4.7, Absolute Lymphs (auto) 0.99, Nucleated RBC % 0.7, DifferentialComment SCANNED, Platelet Estimate ADEQUATE, Polychromasia 1+, Hypochromasia 1+,Anisocytosis 2+, Sodium 138, Potassium 3.3, Chloride 92 L, Carbon Dioxide 32.5 H, Anion Gap 13, BUN 41 H, Creatinine 1.43 H, Estim Creat Clear Calc 36.06 L, Est GFR (MDRD) Non-Af 47 L, BUN/Creatinine Ratio 28.4 H, Glucose 160 H, Calcium 9.0 06/24/25 05:50: WBC 6.9, RBC 2.59 L, Hgb 9.3 L, Hct 28.6 L, MCV 110.4 H, MCH 35.9 H, MCHC 32.5, RDW Std Deviation 108.7 H, RDW Coeff of Luis Alberto 26.6 H, Plt [id number], MPV 11.1, Immature Gran % (Auto) 0.400, Neut % (Auto) 69.2, Lymph % (Auto) 12.5 L, Ward % (Auto) 15.6 H, Eos % (Auto) 1.7, Baso % (Auto) 0.6, Absolute Neuts (auto) 4.7, Absolute Lymphs (auto) 0.86, Nucleated RBC % 0.9, DifferentialComment SCANNED, Hypochromasia 1+, Anisocytosis 2+, Sodium 138, Potassium 3.0 L, Chloride 94 L, Carbon Dioxide 31.4, Anion Gap 13, BUN 37 H, Creatinine 1.37 H, Estim Creat Clear Calc 36.30 L, Est GFR (MDRD) Non-Af 49 L, BUN/Creatinine Ratio 27.3 H, Glucose 119 H, Calcium 8.7 Charges/Coding Visit Charges Inpatient E&M: 52810 Subs Hosp L2 06/24/25 1427 <Electronically signed by Marshal Rebolledo MD> Cosigner Signature (if applicable): CC: ~ Signed ADDENDUM by Dr. Marshal Rebolledo MD on 06/24/25 at 1428 Addendum Anemia of chronic disease: H&H stable at 9.3/28.6%. No significant change from yesterday. 06/24/251427<Electronically signed by Marshal Rebolledo MD> Cosigner Signature (if applicable): cc: ~* Signed [facility] Work Phone: 1(562) 606-272808-16-2025 Progress note [facility] Medical Records Department [address] [place] [address] Progress Note - Hospitalist 06/24/25 1015 MR#: [id number] Acct: [id number] Name: SRINI LUIS Rep #:[id number] : 1935 89 From: Marshal Nuñez PCP: Dr. Ronaldo Pleitez MD Status:A DM IN Location: MS3 [id number] Reason for Visit Chief Complaint: Increasing left lower extremity swelling Objective Data Objective Data Vital Signs: Vital Signs Temp Pulse Resp BP Pulse Ox O2 Del Method 98.2 F 55 L 18 129/62 H 92 Room Air 06/24/25 04:32 06/24/25 04:32 06/24/25 04:32 06/24/25 04:32 06/24/25 04:32 06/24/25 04:32 Oxygen Delivery Method Room Air Weight: 176 lb Body Mass Index (BMI) 28.4 Intake & Output: Intake and Output for Last 24 Hours 06/22/25 06/23/25 06/24/25 23:59 23:59 23:59 Intake Total 201 / 501 700 / 700 Balance 201 / 501 700 / 700 Lab / Micro Data 06/24/25 05:50 06/24/25 05:50 Labs: Laboratory Results - last 24 hr 06/23/25 14:23: WBC 6.8, RBC 2.65 L, Hgb 9.7 L, Hct 29.5 L, MCV 111.3 H, MCH 36.6 H, MCHC 32.9, RDWStd Deviation 109.9 H, RDW Coeff of Luis Alberto 26.7 H, Plt Pdzig117, MPV 10.6, Immature Gran % (Auto) 0.300, Neut % (Auto) 68.2, Lymph % (Auto) 14.5 L, Ward % (Auto) 15.5 H, Eos % (Auto) 0.9, Baso % (Auto) 0.6, Absolute Neuts (auto) 4.7, Absolute Lymphs (auto) 0.99, Nucleated RBC % 0.7, DifferentialComment SCANNED, Platelet Estimate ADEQUATE, Polychromasia 1+, Hypochromasia 1+,Anisocytosis 2+, Sodium 138, Potassium 3.3, Chloride 92 L, Carbon Dioxide 32.5 H, Anion Gap 13, BUN 41 H, Creatinine 1.43 H, Estim Creat Clear Calc 36.06 L, EstGFR (MDRD) Non-Af 47 L, BUN/Creatinine Ratio 28.4 H, Glucose 160 H, Calcium 9.0 06/24/25 05:50: WBC 6.9, RBC 2.59 L, Hgb 9.3 L, Hct 28.6 L, MCV 110.4 H, MCH 35.9 H, MCHC 32.5, RDWStd Deviation 108.7 H, RDW Coeff of Luis Alberto 26.6 H, Plt Switn609, MPV 11.1, Immature Gran % (Auto) 0.400, Neut % (Auto) 69.2, Lymph % (Auto) 12.5 L, Ward % (Auto) 15.6 H, Eos % (Auto) 1.7, Baso % (Auto) 0.6, Absolute Neuts (auto) 4.7, Absolute Lymphs (auto) 0.86, Nucleated RBC % 0.9, DifferentialComment SCANNED, Hypochromasia 1+, Anisocytosis 2+, Sodium 138, Potassium 3.0 L,Chloride 94 L, Carbon Dioxide 31.4, Anion Gap 13, BUN 37 H, Creatinine 1.37 H, Estim Creat Clear Calc 36.30 L, Est GFR (MDRD) Non-Af 49 L, BUN/Creatinine Ratio 27.3 H, Glucose 119 H, Calcium 8.7 Physical Exam Narrative Seen and examined Patient came to ER with increased left lower extremity swelling, redness pain started from ankle and progressed proximally for 1 week. No fever. Patient also had blister and dorsum of left foot whichhas ruptured spontaneously. He failed outpatient treatment for cellulitis Physical exam General: Alert, Oriented x3, Cooperative HEENT: Atraumatic, PERRLA, EOMI, Normocephalic. Oral: No Gingival or Mucosal Lesions/ Ulcerations Neck: Supple, No JVD, Negative Carotid Bruits Chest wall/Lungs: Air entry diminished in bilateral lung bases. No crepitation/rhonchi Cardiovascular: Sinus irregular rhythm, PVCs systolic murmur Abdomen: Bowel Sounds Present, Soft, Non Tender, Non-Distended : No dysuria. No renal angle tenderness. No suprapubic tenderness. Extremities: No edema, Capillary Refill Less than 3 Seconds Skin: Ruptured blister on dorsum of left foot. No obvious ulcer Musculoskeletal: Redness, tenderness erythema and swelling of left leg below knee level. Mild swelling and redness on right lower leg but mild in compared to left leg. No Tenderness to Palpation of Joints or Extremities Neurological: Cranial nerves II-XII grossly intact, DTR 2+/4. No acute focal neurological deficit. Psych/Mental Status: Flat affect Seen and examined. General: Alert, no apparent distress HEENT: Atraumatic, [...] reported on palpation or fluctuance Psych: Cooperative Assessment & Plan Assessment/Plan (1) Cellulitis of left leg: PLAN: Plan Patient was admitted with left lower extremity swelling, pain, induration which has failed outpatient treatment therefore admitted for IV antibiotic. Superficial blister on left dorsum of foot has ruptured. # Left lower extremity cellulitis - Failed outpatient management with oral antibiotics. No leukocytosis. - Will treat with IV Unasyn, no evidence of any purulence and patient does not have known history of diabetes so feel that this would be sufficient coverage atthis time - Elevate extremity, Citlalli wrap bandage Patient had venous duplex on 06/19 as an outpatient which did not show superficial or DVT in the left lower extremity. It shows nonvascular anechoic left popliteal fossa cyst 6.01 x 1.41 stable popliteal cyst. #Hx of CAD -w/ previous CABG -Continue [...] baseline closer to 1 -Avoid nephrotoxic agents -Repeat labs shows BUN/creatinine 37/1.37, slight decrease from admitting creatinine. Does not meetcriteria for DANE. # History of CVA - Continue home medications - Heart healthy diet #Paroxysmal Atrial Fibrillation - Continue Xarelto #Hypothyroidism -Continue Synthroid #DVT ppx: Patient already on full dose anticoagulation with Xarelto 06/23/25 14:23: WBC 6.8, RBC 2.65 L, Hgb 9.7 L, Hct 29.5 L, MCV 111.3 H, MCH 36.6 H, MCHC 32.9, RDWStd Deviation 109.9 H, RDW Coeff of Luis Alberto 26.7 H, Plt [id number], MPV 10.6, Immature Gran % (Auto) 0.300, Neut % (Auto) 68.2, Lymph % (Auto) 14.5 L, Ward % (Auto) 15.5 H, Eos % (Auto) 0.9, Baso % (Auto) 0.6, Absolute Neuts (auto) 4.7, Absolute Lymphs (auto) 0.99, Nucleated RBC % 0.7, DifferentialComment SCANNED, Platelet Estimate ADEQUATE, Polychromasia 1+, Hypochromasia 1+,Anisocytosis 2+, Sodium 138, Potassium 3.3, Chloride 92 L, Carbon Dioxide 32.5 H, Anion Gap 13, BUN 41 H, Creatinine1.43 H, Estim Creat Clear Calc 36.06 L, Est GFR (MDRD) Non- Af 47 L, BUN/Creatinine Ratio 28.4 H, Glucose 160 H, Calcium 9.0 06/24/25 05:50: WBC 6.9, RBC 2.59 L, Hgb 9.3 L, Hct 28.6 L, MCV 110.4 H, MCH 35.9 H, MCHC 32.5, RDWStd Deviation 108.7 H, RDW Coeff of Luis Alberto 26.6 H, Plt [id number], MPV 11.1, Immature Gran % (Auto) 0.400, Neut % (Auto) 69.2, Lymph % (Auto) 12.5 L, Ward % (Auto) 15.6 H, Eos % (Auto) 1.7, Baso % (Auto) 0.6, Absolute Neuts (auto) 4.7, Absolute Lymphs (auto) 0.86, Nucleated RBC % 0.9, DifferentialComment SCANNED, Hypochromasia 1+, Anisocytosis 2+, Sodium 138, Potassium 3.0 L, Chloride 94 L, Carbon Dioxide 31.4, Anion Gap 13, BUN 37 H, Creatinine1.37 H, Estim Creat Clear Calc 36.30 L, Est GFR (MDRD) Non- Af 49 L, BUN/Creatinine Ratio 27.3 H, Glucose 119 H, Calcium 8.7 Charges/Coding Visit Charges Inpatient E&M: 01819 Subs Hosp L2 06/24/25 1427 Cosigner Signature (if applicable): CC: ~ Signed ADDENDUM by Dr. Marshal Rebolledo MD on 06/24/25 at 1428 Addendum Anemia of chronic disease: H&H stable at 9.3/28.6%. No significant change from yesterday. 06/24/251427 Cosigner Signature (if applicable): cc: ~* Signed [facility]08-15-2025 History and physical note Author Mary Prather [facility] Note Date/Time June 23, 2025 5: 14pm [facility] Medical Records Department [address] [place] [address] H&P Exam - Hospitalist 06/23/25 1621 MR#: [id number] Acct: [id number] Name: SRINI LUIS Rep #:[id number] : 1935 89 From: Mary Prather MD PCP: Dr. Ronaldo Pleitez MD Status:R EG ER Location: ED HPI - General General Date of Admission: 06/23/25 Date of Service: 06/23/25 Chief Complaint: Increasing left lower extremity swelling HPI Narrative SRINI LUIS, is a 89-year-old male history of CABG, CVA, pacemaker, A-fib on Xarelto, hypothyroidism, CML who presented to [facility] ED 06/23/2025 with worsening cellulitis of his [...] chills, no other new or acute complaints [facility] Medical History Cellulitis CMML (chronic myelomonocytic leukemia) [...] capsule multivitamin 1 tab PO DAILY 04/09/23 07/05/01 History rivaroxaban 20 mg tablet (Xarelto) 20 [...] Signs Vital Signs Vital Signs: 06/23/25 13:25 06/23/25 16:20 Temperature 97.9 F Temperature Source Oral [...] Coeff of Luis Alberto 26.7 H, Plt [id number], MPV 10.6, Immature Gran % (Auto) 0.300, Neut % (Auto) 68.2, Lymph % (Auto) 14.5 L, Ward % (Auto) 15.5 H, Eos % (Auto) [...] Prather MD Charges/Coding Visit Charges Inpatient E&M: 17033 Init Hosp L2 06/23/25 1714 <Electronically signed by Mary Prather MD> Cosigner Signature (if applicable): CC: Dr. Mary Prather MD; Dr. Ronaldo Pleitez MD~ Signed [facility] Work Phone: 1(982) 964-355208-15-2025 Evaluation note* Diagnosis Onset Date Resolution Status Admit Date Cellulitis of left leg acute Au marylou 2024 4:21pm Chronic anticoagulation acute A ugust 2024 4:21pm History of atrial fibrillation acute June 23, 2025 4:21pm History of chronic myeloid leukemia acute June 23 4:21pm History of stroke acute June 23, 2025 4:21pm [facility] Work Phone: [phone]) 517-200008-15-2025 Discharge summary Author Jere Gorman [facility] Note Date/Time June 23, 2025 3: 43pm [facility] Medical Records Department [address] [place] [address] Emergency Department Summary 06/23/25 MR#: [id number] Acct: [id number] Name: SRINI LUIS Rep #:[id number] : 1935 89 From: Jere Gorman MD PCP: Dr. Ronaldo Pleitez MD Status:R ER Location: ED HPI History of Present [...] has been on oral antibiotics through his [facility] physicians this redness is getting worse so they sent him in to be admitted for IV antibiotics. He denies any fever or chills. Prior similar symptoms: No Recent Illness/Hospitalization: No PFSH PFS Medical History Cellulitis CMML (chronic [...] capsule multivitamin 1 tab PO DAILY 04/09/23 07/0 05/01 History rivaroxaban 20 mg tablet (Xarelto) 20 [...] (Auto) 68.2 Lymph % (Auto) 14.5 L Ward % (Auto) 15.5 H Eos % (Auto) [...] MD [Primary Care Provider] - Print Language: Serbian Disposition Disposition: Acute Care [facility] What to do if you have Problems For any increased pain, shortness of breath, bleeding, nausea or vomiting, chestpain, or any unexpected problems, contact your Primary Care Provider. Call [facility] ([phone]) or report to the closest Emergency Room. Call 911 if necessary. 06/23/25 1543 <Electronically signed by Jere Gorman MD> Cosigner Signature (if applicable): CC: Dr. Ronaldo Pleitez MD ~ Signed [facility] Work Phone: 1(792) 997-577908-15-2025 History and physical note [facility] Medical Records Department [address] [place] [address] H&P Exam - Hospitalist 06/23/25 1621 MR#: [id number] Acct: [id number] Name: SRINI LUIS Rep #:[id number] : 1935 89 From: Mary Prather MD PCP: Dr. Ronaldo Pleitez MD Status:R EG ER Location: ED HPI - General General Date of Admission: 06/23/25 Date of Service: 06/23/25 Chief Complaint: Increasing left lower extremity swelling HPI Narrative SRINI LUIS, is a 89-year-old male history of CABG, CVA, pacemaker, A-fib on Xarelto, hypothyroidism, CML who presented to [facility] ED 06/23/2025 with worsening cellulitis of his [...] days ago with a creatinine of 1.37 soit is possible that this is patient's baseline [...] chills, no other new or acute complaints [facility] Medical History Cellulitis CMML (chronic myelomonocytic leukemia) [...] capsule multivitamin 1 tab PO DAILY 04/09/23 07/0 05/01 History rivaroxaban 20 mg tablet (Xarelto) 20 [...] Signs Vital Signs Vital Signs: 06/23/25 13:25 06/23/25 16:20 Temperature 97.9 F Temperature Source Oral [...] 111.3 H, MCH 36.6 H, MCHC 32.9, RDWStd Deviation 109.9 H, RDW Coeff of Luis Alberto 26.7 H, Plt Qiiaa454, MPV 10.6, Immature Gran % (Auto) 0.300, Neut % (Auto) 68.2, Lymph % (Auto) 14.5 L, Ward % (Auto) 15.5 H, Eos % (Auto) 0.9, Baso % (Auto) 0.6, Absolute Neuts (auto) 4.7, Absolute Lymphs (auto) 0.99, Nucleated RBC % 0.7, Sodium 138, Potassium 3.3, Chloride 92 L, Carbon Dioxide 32.5 H, Anion Gap 13, BUN 41 H, Creatinine 1.43 H, Estim Creat Clear Calc 36.06 L, Est GFR (MDRD) Non- Af 47 L, BUN/Creatinine Ratio 28.4 H, Glucose [...] Prather MD Charges/Coding Visit Charges Inpatient E&M: 10788 Init Hosp L2 06/23/25 1714 Cosigner Signature (if applicable): CC: Dr. Mary Prather MD; Dr. Ronaldo Pleitez MD~ Signed [facility]08-15-2025 Discharge summary [facility] Medical Records Department [address] [place] [address] Emergency Department Summary 06/23/25 MR#: [id number] Acct: [id number] Name: SRINI LUIS Rep #:[id number] : 1935 89 From: Jere Gorman MD PCP: Dr. Ronaldo Pleitez MD Status:R EG ER Location: ED HPI History of Present Illness Chief Complaint: Cellulitis Informant: patient Onset/Context/Timing Onset: Days Context: Gradual Onset Timing: Continuous Current Severity: Moderate Maximum Severity: Moderate Narrative Narrative: 89-year-old male history of stroke, prior CABG, A-fib on Xarelto and history of chronic myelogenousleukemia. Also CKD and CHF. Has chronic bilateral lower extremity swelling he developed cellulitis of the left lower leg for about a week he has been on oral antibiotics through his [facility] physicians this redness is getting worse so they sent him in to be admitted for IV antibiotics. He denies any fever or chills. Prior similar symptoms: No Recent Illness/Hospitalization: No PFSH PFS Medical History Cellulitis CMML (chronic [...] to inspection, nondistended, normoactive bowel sounds, non-tender, non- distended and no masses Palpation: soft; Negative for [...] (Auto) 68.2 Lymph % (Auto) 14.5 L Ward % (Auto) 15.5 H Eos % (Auto) [...] MD [Primary Care Provider] - Print Language: Serbian Disposition Disposition: Acute [facility] What to do if you have Problems For any increased pain, shortness of breath, bleeding, nausea or vomiting, chestpain, or any unexpected problems, contact your Primary Care Provider. Call [facility] ([phone]) or report tothe closest Emergency Room. Call 911 if necessary. 06/23/25 1543 Cosigner Signature (if applicable): CC: Dr. Ronaldo Plietez MD ~ Signed [facility]08-15-2025 NoteOhiohealth [facility]-15-2025 History of Present illness Narrative* Esha Jackson LPN - 06/23/2025 11:37 AM EDT Patient here for injection of Aranesp. Given SQ in left arm. Patient tolerated well. For all other information regarding today, see today's OV note with Dr Pleitez today. Esha Jackson LPN documented in this encounterBrecksville [facility]08-15-2025 Instructions* Patient Instructions* Ronaldo Pleitez MD - 06/23/2025 10:37 AM EDT YOUR CELLULITIS IS NOT IMPROVING. INPATIENT MANAGEMENT IS MY RECOMMENDATION. PLEASE PROCEED TO THE ER. documented in this encounterBrecksville Va / [facility]ille [facility]08-15-2025 NoteOhiohealth Arthur [facility]08-15-2025 History of Present illness Narrative* Ronaldo Pleitez [...] 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 ([facility]) Cva (Cerebral Vascular Accident) ([facility]) Fdc Current Use of Anticoagulant Lymphedema of Both Lower Extremities Osteoarthritis, Generalized History of Anemia Benign Hypertension Diverticulosis Nocturnal Hypoxemia Rbbb Restless Leg Syndrome Mds (Myelodysplastic Syndrome) ([facility]) Myasthenia Gravis ([facility]) Vertebral Artery Occlusion, Left Venous Stasis of Both Lower Extremities 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 Gorman at [facility] for the SBAR. Patient and daughter indicated understanding and willingness to follow recommendation. Ronaldo Pleitez MD documented in this encounterBrecksville [facility]08-13-2025 NoteOhiohealth Arthur 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 Lymphedema of Both Lower Extremities Osteoarthritis, Generalized History of Anemia Benign Hypertension Diverticulosis Nocturnal Hypoxemia Rbbb Restless Leg Syndrome Mds (Myelodysplastic Syndrome) ([facility]) Myasthenia Gravis ([facility]) Vertebral Artery Occlusion, Left Venous Stasis of Both Lower Extremities 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[facility]) Status Post Ligation of Left Atrial Appendage Pvc's (Premature Ventricular Contractions) History of Stress Test H/O Echocardiogram 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 ([facility]) History of Cva (Cerebrovascular Accident) Chronic Atrial Fibrillation ([facility]) Chb (Complete Heart Block) ([facility]) Review of Systems Constitutional: Negative for chills, [...] TABLET Ronaldo Pleitez MD documented in this encounterBrecksville [facility]08-11-2025 Telephone encounter Note * Telephone Encounter - Lakesha Pabon MA - 06/19/2025 1:12 PM EDT Pt daughter called and notified per iram I think it is okay to take the increased dose of Lasix in the short-term, it will help with healingthe cellulitis along with antibiotic. Pt daughter agreeable [facility]08-11-2025 Miscellaneous Notes* Telephone Encounter - Lakesha Pabon MA - 06/19/2025 1:12 PM EDT Pt daughter called and notified per iram I think it is okay to take the increased dose of Lasix in the short-term, it will help with healingthe cellulitis along with antibiotic. Pt daughter agreeable * Telephone Encounter - Iram Johnson, MARTIN.PHOTO MASK PATTERN GENERATOR - 06/19/2025 11:45 AM EDT I think it is okay to take the increased dose of Lasix in the short-term, it will help with healingthe cellulitis along with antibiotic. * Telephone Encounter - Shilpa Abraham MA - 06/19/2025 11:07 AM EDT Patient went to [facility] over the weekend for his swelling. He is being treated for Cellulitis and was given an antibiotic for a week. He did have a doppler and it was negative for a clot. She is asking if he should continue taking the increased dose of Lasix after a week? documented in this encounterBrecksville [facility]08-11-2025 Telephone encounter Note * Telephone Encounter - Iram Johnson APRN.MAURICIO - 06/19/2025 11:45 AM EDT I think it is okay to take the increased dose of Lasix in the short-term, it will help with healingthe cellulitis along with antibiotic. [facility]08-11-2025 Telephone encounter Note* Telephone Encounter - Shilpa Abraham MA - 06/19/2025 11:07 AM EDT Patient went to [facility] over the weekend for his swelling. He is being treated for Cellulitis and was given an antibiotic for a week. He did have a doppler and it was negative for a clot. She is asking if he should continue taking the increased dose of Lasix after a week? [facility]08-05-2025 Telephone encounter Note* Telephone Encounter - Arabella Moreno APRN.CNP - 06/13/2025 8:59 AM EDT Noted Arabella Moreno APRN.CNP [facility]08-05-2025 Miscellaneous Notes* Telephone Encounter - Arabella Moreno APRN.CNP - 06/13/2025 8:59 AM EDT Noted Arabella Moreno APRN.CNP * Telephone Encounter - Jody Nesbitt MA - 06/13/2025 8:37 AM EDT Please see pt update Jody Nesbitt MA documented in this encounterBrecksville [facility]08-05-2025 Telephone encounter Note * Telephone Encounter - Jody Nesbitt MA - 06/13/2025 8:37 AM EDT Please see pt update Jody Nesbitt MA [facility]08-01-2025 NoteHNO ID: [id number] Author: ESHA JACKSON LPN Service: ? Author Type: LICENSED NURSE Type: Progress Notes Filed: 06/09/2025 10:03 Note Text: Patient here for injection of Aranesp. Given SQ in right arm. Patient tolerated well. [facility]08-01-2025 History of Present illness Narrative* Esha Jackson LPN - 06/09/2025 9:49 AM EDT Patient here for injection of Aranesp. Given SQ in right arm. Patient tolerated well. Esha Jackson LPN documented in this encounterBrecksville [facility]07-28-2025 NoteOhiohealth Arthur [facility]07-28-2025 History of Present illness Narrative* Arabella Moreno, CAKE PRESS OPERATOR HELPER.[facility] - 06/05/2025 3:05 PM EDT Images from the original note were not included. CC: Patient presents with: Recheck: Wound check-left arm HPI Recording using CardiOx software for draft documentation of the visit was discussed with the patient/authorized sales support representative; all questions welcomed and answered. Patient/authorized sales support representative agreed to proceed Narinder Luis is [...] to chronic myelomonocytic leukemia treated with erythropoietin ([facility]) 11/16/2024 B12 deficiency 07/11/2020 Benign hypertension CAD (coronary artery disease) CHB (complete heart block) ([facility]) 09/17/2022 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; Confirmed Blk below His by His Bundle Electrogram Chronic atrial fibrillation ([facility]) Chronic myelomonocytic leukemia not having achieved remission ([facility]) 12/01/2022 CVA (cerebral vascular accident) ([facility]) 08/22/2022 Diverticulosis H/O echocardiogram 09/16/2022 EF 68 5 %, mod concentric LVH, mod TR, mild-mod MR with mod MAC History of anemia History of CVA (cerebrovascular accident) 08/22/2022 Pontine infarction, R>L History of stress test 10/12/2024 EF 43%, mild ischemia involving the apex Hx of CABG 07/22/2021 4 vessel CABG with ORNELAS-LAD, SVG-RI, SVG-OM, and SVG-RCA in [place] Hypertension 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 Arabella Moreno APRN.PHOTO MASK PATTERN GENERATOR documented in this encounterBrecksville Va [facility]07-22-2025 NoteOhiohealth Arthur [facility]07-22-2025 History of Present illness Narrative* Arabella Moreno, CAKE PRESS OPERATOR HELPER.PHOTO MASK PATTERN GENERATOR - 05/30/2025 1:28 PM EDT Images from the original note were not included. CC: Patient presents with: Wound Care: Recheck wounds on left arm HPI Recording using CardiOx software for draft documentation of the visit was discussed with the patient/authorized sales support representative; all questions welcomed and answered. Patient/authorized sales support representative agreed to proceed Narinder Luis is [...] to chronic myelomonocytic leukemia treated with erythropoietin ([facility]) 11/16/2024 B12 deficiency 07/11/2020 Benign hypertension CAD (coronary artery disease) CHB (complete heart block) ([facility]) 09/17/2022 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; Confirmed Blk below His by His Bundle Electrogram Chronic atrial fibrillation ([facility]) Chronic myelomonocytic leukemia not having achieved remission ([facility]) 12/01/2022 CVA (cerebral vascular accident) ([facility]) 08/22/2022 Diverticulosis H/O echocardiogram 09/16/2022 EF 68 5 %, mod concentric LVH, mod TR, mild-mod MR with mod MAC History of anemia History of CVA (cerebrovascular accident) 08/22/2022 [place]ine infarction, R>L History of stress test 10/12/2024 EF 43%, mild ischemia involving the apex 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 [...] RIGHT OP SURGERY Right 12/18/2020 Dr Arreola [facility] ARTHROPLASTY TOTAL SHOULDER 11/09/2008 right ARTHROSCOPY OF JOINT UNLISTED 1999 [place] right CABG (4) VEIN GRAFTS & ARTERIAL GRAFT(S) 07/21/2021 In [facility] COLONOSCOPY FLX DX W/COLLJ SPEC WHEN [...] seek medical attention if these occur. 2. [facility] (current) use of anticoagulants (Z79.01) Anticoagulant therapy [...] Patient agreeable to treatment plan. Arabella Moreno APRN.PHOTO MASK PATTERN GENERATOR documented in this encounterBrecksville [facility]07-22-2025 Instructions* Patient Instructions* Arabella Moreno APRN.PHOTO MASK PATTERN GENERATOR - 05/30/2025 1:15 PM EDT We discussed [...] been sent to your preferred pharmacy ([facility]). - Take this medication with food. - [...] please contact our office. documented in this encounterBrecksville [facility]07-18-2025 NoteHNO ID: [id number] Author: ESHA JACKSON LPN Service: ? Author Type: LICENSED NURSE Type: Progress Notes Filed: 05/26/2025 10:18 Note Text: Aranesp injection given SQ in RLQ. Patient tolerated well. Esha Jackson LPN [facility]07-18-2025 History of Present illness Narrative* Esha Jackson LPN - 05/26/2025 9:26 AM EDT Aranesp injection given SQ in RLQ. Patient tolerated well. Esha Jackson LPN documented in this encounterBrecksville [facility]07-18-2025 Telephone encounter Note * Telephone Encounter - Lupis Clarke MA - 05/26/2025 9:00 AM EDT Patient notified and took today dose already so aware none sat/sun/ or Thursday till seen in office. Lupis Clarke MA [address]18-2025 Miscellaneous Notes* Telephone Encounter - Lupis Clarke [...] follow-up Ariel Moreno APRN.CNP documented in this encounterBrecksville [facility]07-18-2025 Telephone encounter Note * Telephone Encounter - Arabella Moreno APRN.CNP - 05/26/2025 6:26 AM EDT Please call patient and make sure he is aware to hold the Xarelto until he is seen for follow-up Ariel Moreno APRN.CNP [facility]07-18-2025 NoteOhiohealth [facility]07-18-2025 History of Present illness Narrative* Arabella Moreno APRN.CNP - 05/26/2025 6:24 AM EDT Images from the original note were not included. CC: Patient presents with: Fall: fell 4 days ago. Wound is bleeding and soaking through gauze HPI Recording using CardiOx software for draft documentation of the visit was discussed with the patient/authorized sales support representative; all questions welcomed and answered. Patient/authorized sales support representative agreed to proceed Narinder Luis is a 89-year-old male, with a history of atrial fibrillation on Xarelto, presenting with persistent bleeding from multiple lacerations sustained during a fall. 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 ([facility]) 12/01/2022 CVA (cerebral vascular accident) ([facility]) 08/22/2022 Diverticulosis H/O echocardiogram 09/16/2022 EF 68 5 %, mod concentric LVH, mod TR, mild-mod MR with mod MAC History of anemia History of CVA (cerebrovascular accident) 08/22/2022 [place] infarction, R>L History of stress test 10/12/2024 EF 43%, mild ischemia involving the apex 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 [...] RIGHT OP SURGERY Right 12/18/2020 Dr Arreola [facility] ARTHROPLASTY TOTAL SHOULDER 11/09/2008 right ARTHROSCOPY OF JOINT UNLISTED 1999 [place] right CABG (4) VEIN GRAFTS & ARTERIAL GRAFT(S) 07/21/2021 In [facility] COLONOSCOPY FLX DX W/COLLJ SPEC WHEN [...] for now. Patient and daughter agreeable. 2. [facility] (current) use of anticoagulants (Z79.01) Patient is on Xarelto, which contributes to prolonged bleeding from skin tears. - Stop Xarelto until follow-up on Thursday - Monitor for any signs of excessive bleeding. I spent a total of 30 minutes on the date of the service which included preparing to see the patient, ryey-we-ridy patient care, completing clinical documentation, performing a medically appropriate examination, wound management and counseling and educating the patient/family/caregiver. Prescription instructions reviewed with patient as applicable. Potential red flag symptoms discussed with the patient. Reviewed appropriate action plan to take if red flag symptoms occur. Patient agreeable to treatment plan. Arabella Moreno APRN.PHOTO MASK PATTERN GENERATOR documented in this encounterBrecksville [facility]07-15-2025 Telephone encounter Note * Telephone Encounter - Ronaldo Pleitez MD - 05/23/2025 1:17 PM EDT Okay. Continue to monitor situation. [facility]07-15-2025 Miscellaneous Notes* Telephone Encounter - Ronaldo Pleitez MD - 05/23/2025 1:17 PM EDT Okay. Continue to monitor situation. * Telephone Encounter - Samara Baker RN - 05/23/2025 9:53 AM EDT Appears per note in appt phone comments that pt is at [facility]. Confirmed address is for [facility]. Nurse number listed in those comments- called and had to leave a msg for them to call us back. Called and spoke with insulation board calender operator at [facility] and she states that pt is [...] The fall on Thursday, the nurses at [facility] did not respond right away so pt [...] - 05/23/2025 8:22 AM EDT Check with long-term staff for additional insight on falling episodes. [...] time. Please review and advise, Mary Ann Pabon, RN documented in this encounterBrecksville [facility]07-15-2025 Telephone encounter Note * Telephone Encounter - Samara Baker RN - 05/23/2025 9:53 AM EDT Appears per note in appt phone comments that pt is at [facility]. Confirmed address is for [facility]. Nurse number listed in those comments- called and had to leave a msg for them to call us back. Called and spoke with insulation board calender operator at [facility] and she states that pt is [...] The fall on Thursday, the nurses at [facility] did not respond right away so pt [...] Dr. Pleitez feels something more is needed. [facility]07-15-2025 Telephone encounter Note* Telephone Encounter - Ronaldo Pleitez MD - 05/23/2025 8:22 AM EDT Check with long-term staff for additional insight on falling episodes. [facility]07-14-2025 Telephone encounter Note* Telephone Encounter - [...] review and advise, Mary Ann Pabon RN [facility]07-03-2025 NoteHNO ID: [id number] Author: ESHA JACKSON LPN Service: ? Author Type: LICENSED NURSE Type: Progress Notes Filed: 05/11/2025 10:58 Note Text: Patient here for injection of Aranesp, given SQ in right arm. Patient tolerated well. [facility] History of Present illness Narrative* Esha Jackson LPN - 05/11/2025 9:35 AM EDT Patient here for injection of Aranesp, given SQ in right arm. Patient tolerated well. Esha Jackson LPN documented in this encounterCleveland [id number] Telephone encounter Note * Telephone Encounter - Bebo Vasquez RN - 05/08/2025 6:26 PM EDT Pt called and is notified of providers message and instructions. Pt voices understanding. Bebo Vasquez RN [facility]06-30-2025 Miscellaneous Notes* Telephone Encounter - Bebo [...] that he spoke w/ Dr. Pleitez via [employer] that swelling has gone down and ok to stop medication. Patient states that the swelling back, but not to the extent of the previous state. Please advise. documented in this encounterBrecksville [facility]06-30-[facility] Telephone encounter Note * Telephone Encounter - Ronaldo Pleitez MD - 05/08/2025 5:48 PM EDT The following approved medication requests have been transmitted electronically. Requested Prescriptions Signed Prescriptions Disp Refills metOLazone (ZAROXOLYN) 2.5 mg tablet 6 tablet 0 Sig: Take 1 tablet by mouth three times a week for 6 doses. Authorizing Provider: RONALDO PLEITEZ MD [facility]06[facility]30[facility] Telephone encounter Note* Telephone Encounter - Lupis Clarke MA - 05/08/2025 10:05 AM EDT Note is regarding results from 04/14 on metOLazone (ZAROXOLYN) 2.5 mg tablet (Discontinued) 12 tablet 0 04/06/2025 04/25/2025 Sig: Take 1 tablet by mouth three times a week. Please review Lupis Clarke MA [facility]06-27-2025 Telephone encounter Note* Telephone Encounter - Mary Ann Samayoa - 05/05/2025 3:44 PM EDT Patient spoke with this PSS stating that Dr. Pleitez had prescribed a little pill to help with patient's swelling. Patient stated that he spoke w/ Dr. Pleitez via MetaJuret that swelling has gone down and ok to stop medication. Patient states that the swelling back, but not to the extent of the previous state. Please advise. [facility]06-20-2025 NoteHNO ID: [id number] Author: ESHA JACKSON LPN Service: ? Author Type: LICENSED NURSE Type: Progress Notes Filed: 04/28/2025 11:53 Note Text: Patient here for injection of Aranesp. Given SQ in left arm. Patient tolerated well. [facility]06-20-[facility] History of Present illness Narrative* Esha Jackson LPN - 04/28/2025 9:49 AM EDT Patient here for injection of Aranesp. Given SQ in left arm. Patient tolerated well. Esha Jackson LPN documented in this encounterBrecksville [facility]06-06-2025 NoteHNO ID: [id number] Author: ESHA JACKSON LPN Service: ? Author Type: LICENSED NURSE Type: Progress Notes Filed: 04/14/2025 11:58 Note Text: Aranesp injection deferred, treatment parameter not met, Hgb 10.3. [facility]06-06-2025 History of Present illness Narrative* Esha Jackson LPN - 04/14/2025 10:33 AM EDT Aranesp injection deferred, treatment parameter not met, Hgb 10.3. 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; Confirmed Blk below His by His Bundle Electrogram Chronic atrial fibrillation ([facility]) 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 ([facility]) 12/01/2022 CVA (cerebral vascular accident) ([facility]) 08/22/2022 Diverticulosis H/O echocardiogram 09/16/2022 EF 68 5 %, mod concentric LVH, mod TR, mild-mod MR with mod MAC History of anemia History of CVA (cerebrovascular accident) 08/22/2022 Pontine infarction, R>L History of stress test 10/12/2024 EF 43%, mild ischemia involving the apex Hx of CABG 07/22/2021 4 vessel CABG with ORNELAS-LAD, SVG-RI, SVG-OM, and SVG-RCA in [place] Hypertension 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 [...] OP SURGERY Right 12/18/2020 Dr Elba Sherman [facility] ARTHROPLASTY TOTAL SHOULDER 11/09/2008 right ARTHROSCOPY OF JOINT UNLISTED 1999 Elbow right CABG (4) VEIN GRAFTS & ARTERIAL GRAFT(S) 07/21/2021 In [facility] COLONOSCOPY FLX DX W/COLLJ SPEC WHEN [...] current medications. 2. Coronary artery disease involving [place] coronary artery of [place] heart without angina pectoris- ICD9: 414.01, ICD10: [...] node dysfunction. He is on Xarelto. 7. 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 documented in this encounterBrecksville Va [facility]05-30-2025 NoteHNO ID: [id number] Author: IRAM JOHNSON APRN.PHOTO MASK PATTERN GENERATOR Service: ? 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; Confirmed Blk below His by His Bundle Electrogram Chronic atrial fibrillation ([facility]) 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 ([facility]) 12/01/2022 CVA (cerebral vascular accident) ([facility]) 08/22/2022 Diverticulosis H/O echocardiogram 09/16/2022 EF 68?5 %, mod concentric LVH, mod TR, mild-mod MR with mod MAC History of anemia History of CVA (cerebrovascular accident) 08/22/2022 Pontine infarction, R>L History of stress test 10/12/2024 EF 43%, mild ischemia involving the apex 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 [...] RIGHT OP SURGERY Right 12/18/2020 Dr Arreola [facility] ARTHROPLASTY TOTAL SHOULDER 11/09/2008 right ARTHROSCOPY OF JOINT UNLISTED 1999 Elbow right CABG (4) VEIN GRAFTS AND ARTERIAL GRAFT(S) 07/21/2021 In [facility] COLONOSCOPY FLX DX W/COLLJ SPEC WHEN [...] mouth once daily. polyethylene (more content not included)...[facility]05-29-2025 Miscellaneous Notes* Telephone Encounter - Latisha Parks [...] to go to [facility]. Jessenia Hernández LPN * Telephone Encounter - [...] Mary Ann Pabon RN documented in this encounterBrecksville [facility]05-29-2025 Telephone encounter Note * Telephone Encounter - Latisha Parks LPN - 04/06/2025 2:57 PM EDT Called pts daughter and all reviewed. [facility]05-29-2025 Telephone encounter Note* Telephone Encounter - [...] BMP in 2 weeks. Ronaldo Pleitez MD [facility]05-28-2025 Telephone encounter Note* Telephone Encounter - Jessenia Hernández LPN - 04/05/2025 2:48 PM EDT Daughter's concerned about Patient falling, he recently moved from Assisted Living to Independent Living, does not have eyes on him like before. Willing to start the medication, asking for RX to go to [facility]. Jessenia Hernández LPN [facility]05-28-2025 Telephone encounter Note* Telephone Encounter - Ronaldo Pleitez MD - 04/05/2025 1:14 PM EDT Yes to concerns #1 and #2 if we try to treat edema with metolazone. [facility]05-28-2025 Telephone encounter Note* Telephone Encounter - [...] review and advise, Mary Ann Pabon RN [facility]05-23-2025 NoteHNO ID: [id number] Author: ESHA JACKSON LPN Service: ? Author Type: LICENSED NURSE Type: Progress Notes Filed: 03/31/2025 12:01 Note Text: Patient here for injection of Aranesp. Given SQ in right arm. Patient tolerated well. [facility]05-23-2025 Note [facility]05-20-2025 NoteOhio[facility]05-[facility]-2025 NoteOhio[facility]-2025 History of Present illness Narrative* Ronaldo Pleitez MD - 03/27/2025 3:10 PM EDT This note was created using Placelyriter. Subjective Patient presents with: Right leg Recording using CardiOx software for draft documentation of the visit was discussed with the patient/authorized sales support representative; all questions welcomed and answered. 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 Advisor Current Use of Anticoagulant Lymphedema of Both Lower Extremities Osteoarthritis, Generalized History of Anemia Benign Hypertension Diverticulosis Nocturnal Hypoxemia Rbbb Restless Leg Syndrome Mds (Myelodysplastic Syndrome) ([facility]) Myasthenia Gravis ([facility]) Vertebral Artery Occlusion, Left Venous Stasis of Both Lower Extremities 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[facility]) Status Post Ligation of Left Atrial Appendage Pvc's (Premature Ventricular Contractions) History of Stress Test H/O Echocardiogram 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 Ronaldo Pleitez MD documented in this encounterBrecksville [facility]05-09-2025 NoteHNO ID: [id number] Author: ESHA JACKSON LPN Service: ? Author Type: LICENSED NURSE Type: Progress Notes Filed: 03/17/2025 15:48 Note Text: Patient here for injection of Aranesp. Given SQ in left arm. Patient tolerated well. [facility] History of Present illness Narrative* Esha Jackson LPN - 03/17/2025 2:11 PM EDT Patient here for injection of Aranesp. Given SQ in left arm. Patient tolerated well. Esha Jackson LPN documented in this encounterBrecksville [facility]05-09-2025 Telephone encounter Note * Telephone Encounter - Baljinder Galloway DO - 03/17/2025 1:17 PM EDT He will continue Aranesp indefinitely. Baljinder Galloway DO [facility]05-09-2025 Miscellaneous Notes* Telephone Encounter - Baljinder Galloway DO - 03/17/2025 1:17 PM EDT He will continue Aranesp indefinitely. Baljinder Galloway DO * Telephone Encounter - Sinai Jay - 03/17/2025 12:[address] Galloway, Trying to make room on 7/3 injection schedule. Patient's last order is 6/20. Is this correct, or will this injection continue on past that date? Thank you. documented in this encounterBrecksville [facility]05-09-2025 Telephone encounter Note * Telephone Encounter - Sinai Jay - 03/17/2025 12:[address] Galloway, Trying to make room on 7/3 injection schedule. Patient's last order is 6/20. Is this correct, or will this injection continue on past that date? Thank you. [facility] Work Phone: 1(682) 930-338404-25-2025 NoteOhio[facility]04-11-2025 NoteHNO ID: [id number] Author: ESHA JACKSON LPN Service: ? Author Type: LICENSED NURSE Type: Progress Notes Filed: 02/17/2025 10:06 Note Text: Patient here for injection of Aranesp. Given SQ in LEFT arm. Pt tolerated well. [facility]04-11-2025 History of Present illness Narrative* Esha Jackson LPN - 02/17/2025 9:53 AM EDT Patient here for injection of Aranesp. Given SQ in LEFT arm. Pt tolerated well. Esha Jackson LPN documented in this encounterBrecksville Va [facility]03-28-2025 NoteHNO ID: [id number] Author: ESHA JACKSON LPN Service: ? Author Type: LICENSED NURSE Type: Progress Notes Filed: 02/03/2025 14:27 Note Text: Patient here for injection of Aranesp. Given SQ in right arm. Patient tolerated well. [facility]03-28-2025 History of Present illness Narrative* Esha Jackson LPN - 02/03/2025 10:31 AM EDT Patient here for injection of Aranesp. Given SQ in right arm. Patient tolerated well. Esha Jackson LPN documented in this encounterBrecksville Va [facility]03-25-2025 Instructions* Patient Instructions* Arabella Moreno, CAKE PRESS OPERATOR HELPER.PHOTO MASK PATTERN GENERATOR - 01/31/2025 11:38 AM EDT HOME INSTRUCTIONS [...] done Influenza Vaccine(1) due on 07/10/2024 Covid-19 Vaccine( season) due on 07/10/2024 WHAT YOU CAN [...] review all the medicines you take, even adaf-efi-bqnjxgd medicines. As you get older, the way [...] have certain medical conditions. documented in this encounterBrecksville [facility]03-25-2025 NoteOhio[facility]03-25-2025 History of Present illness Narrative* Arabella [...] as PCP - General (Internal Medicine) Arabella oMreno, MARTIN.PHOTO MASK PATTERN GENERATOR as Military Science Teacher (Internal Medicine) Baljinder Galloway DO (Hematology). Conrad De La Rosa DPM (Podiatry) [facility]. [place] Miranda MD. Laron Arreola (Orthopedics) [...] management discussed, see patient instructions Arabella Moreno APRN.PHOTO MASK PATTERN GENERATOR Medical Decision Making: Problems: Moderate: 2+ stable chronic illnesses Risk: Low: Low risk from testing/treatment Moderate: Drug management Medical Decision Making Level: 4 - Moderate documented in this encounterBrecksville [facility]03-14-2025 NoteOhiohealth [facility]03-14-2025 History of Present illness Narrative* Shanice [...] noted. Shanice Green LPN documented in this encounterBrecksville Va / [facility]02-28-2025 NoteOhiohealth [facility]02-28-2025 History of Present illness Narrative* Esha Jackson LPN - 01/06/2025 12:29 PM EST Patient here for injection of Retacrit. Given SQ in right arm. Patient tolerated well.For all otherinformation regarding today, see today's OV note with Dr Galloway. Esha Jackson LPN documented in this encounterBrecksville Va / [facility]02-28-2025 NoteOhiohealth [facility]02-28-2025 History of Present illness Narrative* Baljinder [...] (with VAFs): SF3B1 p.H662Q (41.7%) and TET2 p.[id number] (46%). The overall findings are consistent with [...] as an outlier. Normal cytogenetics. Moved from [place] to assisted living at [facility]. Established care here. Drives. Current therapy: 1) Azacitidine. Cycle 10/14/2023. Most recent cycle 05/2023. He was also diagnosed with acute DVT of the internal jugular vein on the right. This occurred despite anticoagulation with rivaroxaban. Port was removed. He was admitted to 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; Confirmed Blk below His by His Bundle Electrogram Chronic atrial fibrillation ([facility]) Chronic heart failure with preserved ejection fraction ([facility]) 07/29/2024 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 ([facility]) 12/01/2022 CVA (cerebral vascular accident) ([facility]) 08/22/2022 Diverticulosis H/O echocardiogram 09/16/2022 EF 68 5 %, mod concentric LVH, mod TR, mild-mod MR with mod MAC History of anemia History of stress test 10/12/2024 EF 43%, mild ischemia involving the apex 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 [...] RIGHT OP SURGERY Right 12/18/2020 Dr Arreola [facility] ARTHROPLASTY TOTAL SHOULDER 11/09/2008 right ARTHROSCOPY OF JOINT UNLISTED 1999 [place] right CABG (4) VEIN GRAFTS & ARTERIAL GRAFT(S) 07/21/2021 In [facility] COLONOSCOPY FLX DX W/COLLJ SPEC WHEN [...] chronic myelomonocytic leukemia treated with erythropoietin (HCC) ([facility]) Assessment: -CMML-MDS subtype; CMML-1. -CPSS-Mol Low risk. [...] necessary. Baljinder Galloway DO documented in this encounterBrecksville Va / [facility]02-21-2025 NoteHNO ID: [id number] Author: ISRAEL MINOR MD Service: ? Author Type: Physician Type: Progress Notes Filed: 01/08/2025 22:00 Note Text: Dual Pacer Remote Check Date: December 30, 2024 Time: 2:51 PM Devices: Implants Ra Lead Biotronik-09/17/2022 - Implanted Heart Model/Cat number: ADAIR [id number] Serial number: [id number] Auto Damage Insurance Appraiser: [employer] Lot number: LEFT AXILLARY VEIN Size: Right Atrial Pacing Lead Rv Lead Biotronik-09/17/2022 - Implanted Heart Model/Cat number: ADAIR Pena [id number] Serial number: [id number] 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 Media Lot number: LEFT CEPHALIC VEIN Size: Right Ventricular Pacing Lead Pacemaker Dual Pacer Biotronik-09/17/2022 - Implanted (Left) Chest Wall Model/Cat number: GUY Wood [id number]-T [id number] Serial number: [id number] 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 Media Lot number: INITIAL DUAL PACER IMPLANT. Size: [...] and provider appointment. View External Cardiology - General Operations Manager Strips [ID [id number]][facility] 12-30-2024 History of Present illness Narrative* Israel Minor MD - 12/30/2024 2:51 PM EST Dual Pacer Remote Check Date: December 30, 2024 Time: 2:51 PM Devices: Implants Ra Lead Biotronik-09/17/2022 - Implanted Heart Model/Cat number: ADAIR Pena [id number] Serial number: [id number] 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 Media Lot number: LEFT AXILLARY VEIN Size: Right Atrial Pacing Lead Rv Lead Biotronik-09/17/2022 - Implanted Heart Model/Cat number: ADAIR Pena [id number] Serial number: [id number] Auto Damage Insurance Appraiser: [employer] Lot number: LEFT CEPHALIC VEIN Size: Right Ventricular Pacing Lead Pacemaker Dual Pacer Fantrotterronik-09/17/2022 - Implanted (Left) Chest Wall Model/Cat number: GUY WRIGHT [id number] Serial number: [id number] 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 Media Lot number: INITIAL DUAL PACER IMPLANT. Size: [...] and provider appointment. View External Cardiology - General Operations Manager Strips [ID [id number]] documented in this encounterBrecksville [facility]02-14-2025 Telephone encounter Note * Telephone Encounter - Latisha Parks LPN - 12/23/2024 10:42 AM EST Fax rec'd from [employer] for refills to [facility]iel rx. Pt last saw pcp 07/29/24. Next appt with CLINICAL RESEARCH PHYSICIAN 01/31/25. [facility]02-14-2025 Miscellaneous Notes* Telephone Encounter - Latisha Parks LPN - 12/23/2024 10:42 AM EST Fax rec'd from [facility] for refills to yadiel garzon. Pt last saw pcp 07/29/24. Next appt with CLINICAL RESEARCH PHYSICIAN 01/31/25. documented in this encounterBrecksville Va / [facility]02-14-2025 NoteHNO ID: [id number] Author: ESHA JACKSON LPN Service: ? Author Type: LICENSED NURSE Type: Progress Notes Filed: 12/23/2024 10:17 Note Text: Patient here for injection of Aranesp. Given SQ in left arm. Patient tolerated well. [facility]02-14-2025 History of Present illness Narrative* Esha Jackson LPN - 12/23/2024 10:02 AM EST Patient here for injection of Aranesp. Given SQ in left arm. Patient tolerated well. Esha Jackson LPN documented in this encounterBrecksville Va / [facility]01-31-2025 NoteOhiohealth [facility]01-31-2025 History of Present illness Narrative* Shanice Green [...] noted. Shanice Green LPN documented in this encounterBrecksville Va / [facility]01-16-2025 NoteOhiohealth [facility]01-16-2025 History of Present illness Narrative* Esha Jackson LPN - 11/24/2024 2:14 PM EST Patient here for injection of Aranesp. Given SQ in right arm. Patient tolerated well. Patient observed for 15 minutes for signs or symptoms of adverse reaction, none noted. Esha Jackson LPN documented in this encounterBrecksville Va [facility]01-10-2025 Telephone encounter Note * Telephone Encounter - Sinai Jay - 11/18/2024 12:58 PM EST Scheduled with patient Start email sent [facility] Work Phone: 1(291) 805-117701-10-2025 Miscellaneous Notes* Telephone Encounter - Sinai Jay [...] week. Baljinder Galloway DO documented in this encounterBrecksville Va / [facility]01-08-2025 Telephone encounter Note * Telephone Encounter - Shanice Green LPN - 11/16/2024 5:00 PM EST Injection- Aranesp Spoke with pt. , given information concerning labs ,pt. Voiced understanding. PSS Please schedule for CBC/possible injection every other week. Pt. Would like to start sometime next week. Shanice Green LPN [facility]01-08-2025 Telephone encounter Note* Telephone Encounter - Baljinder Galloway DO - 11/16/2024 4:48 PM EST Can let him know that his blood counts do not demonstrate need for transfusion but he would benefitby starting Aranesp injections as we discussed at most recent office visit. Please schedule for CBC/possible injection every other week. Baljinder Galloway DO [facility]12-06-2024 Telephone encounter Note* Telephone Encounter - Skye Foster LPN - 10/14/2024 2:39 PM EST Phoned dental office and notified Yaritza. She stated that she will call patient and notify him of instructions. Skye Foster LPN [facility]12-06-2024 Miscellaneous Notes* Telephone Encounter - Skye Foster LPN - 10/14/2024 2:39 PM EST Phoned dental office and notified Yaritza. She stated that she will call patient and notify him of instructions. Skye Foster LPN * Telephone Encounter - Arabella Moreno APRN.CNP - 10/14/2024 2:04 PM EST He will [...] Hollis RN - 10/14/2024 1:04 PM EST Kiya- Dr. Bowers- dental surgeon office- reports patient is schedule on Thursday to have all of hislower teeth extracted. Dental staff just found out today patient is taking a blood thinner. Per med list patient taking xarelto 20 mg and asa 81 mg. Kiya asking if these need to be held for tooth extractions? Please phone Kiya with reply: [phone] documented in this encounterBrecksville Va / [facility]12-06-2024 Telephone encounter Note * Telephone Encounter - Arabella Moreno APRN.CNP - 10/14/2024 2:04 PM EST He will need to stop the Xarelto two days prior to the dental extractions and hold for two days after. He can then resume at usual dose. If he is still experiencing bleeding two days after the procedure he should contact this office prior to resuming Xarelto Arabella Moreno APRN.PHOTO MASK PATTERN GENERATOR [facility]12-06-2024 Telephone encounter Note* Telephone Encounter - Robyn Hollis RN - 10/14/2024 1:04 PM EST Kiya- Dr. Bowers- dental surgeon office- reports patient is schedule on Thursday to have all of hislower teeth extracted. Dental staff just found out today patient is taking a blood thinner. Per med list patient taking xarelto 20 mg and asa 81 mg. Kiya asking if these need to be held for tooth extractions? Please phone Kiya with reply: [phone] [facility]12-05-2024 Telephone encounter Note* Telephone Encounter - Shilpa Abraham MA - 10/13/2024 9:59 AM EST Patient was notified of the Providers message in chart and stated that he does not feel any different. He said he will wait until he feels his health declines before he has any testing done. [facility]12-05-2024 Miscellaneous Notes* Telephone Encounter - Shilpa [...] we can schedule it. documented in this encounterBrecksville [facility]12[facility] Telephone encounter Note * Telephone Encounter [...] see me so we can schedule it. [facility]12-03-2024 NoteOhio[facility]12-[facility] History of Present illness Narrative* Baljinder [...] (with VAFs): SF3B1 p.H662Q (41.7%) and TET2 p.A2442Tfm*6 (46%). The overall findings are consistent with [...] as an outlier. Normal cytogenetics. Moved from [place] to assisted living at [facility]. Established care here. Drives. Current therapy: 1) Azacitidine. Cycle 10/14/2023. Most recent cycle 05/2023. He was also diagnosed with acute DVT of the internal jugular vein on the right. This occurred despite anticoagulation with rivaroxaban. Port was removed. He was admitted to [facility] 05/15 through 05/18 for gram-negative bacteremia attributed to right lower extremity cellulitis. He was initially treated with IV broad-spectrum antibioticsincluding Zosyn and discharged on Levaquin. Blood cultures cleared prior to discharge. Presents for ongoing oncologic management. Interim history: No complaints today. He uses a cane when walking around the long-term. 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 Vitamin D deficiency 07/11/2020 PAST SURGICAL HISTORY Procedure Laterality Date ANKLE RIGHT OP SURGERY Right 12/18/2020 Dr Arre[facility] ARTHROPLASTY TOTAL SHOULDER 11/09/2008 right ARTHROSCOPY OF JOINT UNLISTED 1999 [place] right CABG (4) VEIN GRAFTS & ARTERIAL GRAFT(S) 07/21/2021 In [facility] COLONOSCOPY FLX DX W/COLLJ SPEC WHEN [...] (98.5 F), weight 79.4 kg (175 lb), PhX181%. Well-appearing and in no acute distress. EYES: [...] necessary. Baljinder Galloway DO documented in [place] encounterBobby [place] [id number] Nurse Note* Shanice Green LPN - 10/11/2024 10:12 AM EST Est. Pt. 1 month F/U discuss recent lab results. Shanice Green LPN [facility]12-03-2024 Nurse Note* Shanice Green LPN - 10/11/2024 10:12 AM EST Est. Pt. 1 month F/U discuss recent lab results. Shanice Green LPN documented in this encounterBrecksville [facility]12-02-2024 Telephone encounter Note * Telephone Encounter - Latisha Parks LPN - 10/10/2024 4:47 PM EST Pt's daughter notified. [facility]12-02-2024 Miscellaneous Notes* Telephone Encounter - Latisha [...] patient once submitted. * Telephone Encounter - Ruth Vasquez - 10/10/2024 11:00 AM EST Please advise patient when provider sends this urgent RX [phone] * Telephone Encounter - Tara Trujillo MA - 10/10/2024 9:39 AM EST 2 week supply pended to be sent to [facility]. Tara Trujillo MA * Telephone Encounter - Natalie Bernardo - 10/10/2024 8:12 AM EST Patient's daughter is calling Ronaldo Pleitez MD today to request short term medication requestfor rivaroxaban (XARELTO) 20 mg tablet. Daughter states that medication is to be sent mail order, but the medication will not get there on time. DaughterLiza is asking to have the prescription sent [facility]. Patient has been identified by name and birthdate. Duration of symptoms: N/A If any issues please return call to Liza [phone] Was an appointment scheduled: No Closing statement: Results or non-symptom based questions: Thank you for calling [facility], your call will be returned within the next business day. Natalie Bernardo documented in this encounterBrecksville Va [facility]12-02-2024 Telephone encounter Note * Telephone Encounter [...] pharmacy and notify patient. Ronaldo Pleitez MD [facility]12-02-2024 Telephone encounter Note* Telephone Encounter - Sandi [...] send today. Please call patient once submitted. [facility]12-02-2024 Telephone encounter Note* Telephone Encounter - Ruth Vasquez - 10/10/2024 11:00 AM EST Please advise patient when provider sends this urgent RX [phone] [facility]12-02-2024 Telephone encounter Note* Telephone Encounter - Tara Trujillo MA - 10/10/2024 9:39 AM EST 2 week supply pended to be sent to [facility] Tara Trujillo MA [facility]12-02-2024 Telephone encounter Note* Telephone Encounter - Natalie Bernardo - 10/10/2024 8:12 AM EST Patient's daughter is calling Ronaldo Pleitez MD today to request short term medication requestfor rivaroxaban (XARELTO) 20 mg tablet. Daughter states that medication is to be sent mail order, but the medication will not get there on time. Daughter, Liza is asking to have the prescription sent to [facility]. Patient has been identified by name and birthdate. Duration of symptoms: N/A If any issues please return call to Liza [phone] Was an appointment scheduled: No Closing statement: Results or non-symptom based questions: Thank you for calling [facility], your call will be returned within the next business day. Natalie Bernardo [facility]11-25-2024 NoteOhiohealth [facility]11-25-2024 History of Present illness Narrative* Ginna Em, RN - 10/03/2024 8:54 AM EST CDM Telephonic Outreach Provider Vinnie/GILBERTO CHF Assisted living staff assist with meals, medications, wts, and BPs Spoke with the patient who reports that he is feeling well and has no needs at this time. Appointments for Next 60 Days Date Time Provider Location Dept Phone 10/11/2024 10:00 AM [facility] [phone] 10/11/2024 10:30 AM [facility]ALLOW[facility] [phone] Contacted for: Routine Telephonic Outreach Contact made [...] pounds in a week? No Based on shearing machine feeder, the following disposition is advised: No symptoms or symptoms present, not severe. Routed to: No Action Needed MARCELO Education Provided this Outreach: No Ginna Em RN October 03, 2024 10:57 AM documented in this encounterBrecksville [facility]11-22-2024 Telephone encounter Note * Telephone Encounter - Shilpa Abraham MA - 09/30/2024 8:58 AM EST Spoke with Zaria at [facility]. Patients Stress Test is scheduled for 6:[address] [facility] on 10/12/24. Left message to call back for instructions. Order was faxed ([phone]) to [facility]. [facility]11-22-2024 Miscellaneous Notes* Telephone Encounter - Shilpa Abraham MA - 09/30/2024 8:58 AM EST Spoke with Zaria at [facility]. Patients Stress Test is scheduled for 6:[address] [facility] on 10/12/24. Left message to call back for instructions. Order was faxed ([phone]) to [facility]. * Telephone Encounter - Iram Johnson APRN.CNP - 09/30/2024 8:23 AM EST Apparently the patient does not need a peer to peer, the reference number is the approval number for the stress test. It is good from 09-27-2024-12/25/2024. * Telephone Encounter - Shilpa Abraham MA - 09/27/2024 3:59 PM EST Ref #[id number] Patient needs a Peer to Peer for his Stress Test. The number is [phone]. documented in this encounterBrecksville [facility]11-22-2024 Telephone encounter Note * Telephone Encounter - Iram Johnson APRN.CNP - 09/30/2024 8:23 AM EST Apparently the patient does not need a peer to peer, the reference number is the approval number for the stress test. It is good from 09-27-2024-12/25/2024. [facility]11-19-2024 Telephone encounter Note* Telephone Encounter - Shilpa Abraham MA - 09/27/2024 3:59 PM EST Ref #[id number] Patient needs a Peer to Peer for his Stress Test. The number is [phone]. 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; Confirmed Blk below His by His Bundle Electrogram Chronic atrial fibrillation (HCC) Chronic heart failure with preserved ejection fraction ([facility]) 07/29/2024 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 Vitamin D deficiency 07/11/2020 PAST SURGICAL HISTORY Procedure Laterality Date ANKLE RIGHT OP SURGERY Right 12/18/2020 Dr [facility] ARTHROPLASTY TOTAL SHOULDER 11/09/2008 right ARTHROSCOPY OF JOINT UNLISTED 1999 [place] right CABG (4) VEIN GRAFTS & ARTERIAL GRAFT(S) 07/21/2021 In [facility] COLONOSCOPY FLX DX W/COLLJ SPEC WHEN [...] current medications. 2. Coronary artery disease involving [place] coronary artery of [place] heart without angina pectoris- ICD9: 414.01, ICD10: [...] as needed. 5. CHB (complete heart block) ([facility]) - ICD9: 426.0, ICD10: I44.2 Chronic, the patient has a dual-chamber pacemaker. Set VVI second to chronic A- fib. Stable. 6. Chronic atrial fibrillation (HCC) - ICD9: 427.31, ICD10: I48.20 Chronic, asymptomatic atrial fibrillation. Heart rate control and anticoagulation strategy. Heart rate controlled by virtue of AV node dysfunction. Patient on Xarelto. 7. CHCF current use of anticoagulant - ICD9: V58.61, ICD10: Z79.01 Patient is on Xarelto 20 mg daily. The pt is not complaining of any signs and symptoms of bleeding.The patient was instructed to call with any problems. documented in this encounterBrecksville [facility]11-[facility]-2024 NoteHNO ID: [id number] Author: IRAM JOHNSON APRN.PHOTO MASK PATTERN GENERATOR Service: ? 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; Confirmed Blk below His by His Bundle Electrogram Chronic atrial fibrillation (HCC) Chronic heart failure with preserved ejection fraction (HCC) 07/29/2024 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 Vitamin D deficiency 07/11/2020 PAST SURGICAL HISTORY Procedure Laterality Date ANKLE RIGHT OP SURGERY Right 12/18/2020 Dr [facility] ARTHROPLASTY TOTAL SHOULDER 11/09/2008 right ARTHROSCOPY OF JOINT UNLISTED 1999 [place] right CABG (4) VEIN GRAFTS AND ARTERIAL GRAFT(S) 07/21/2021 In [facility] COLONOSCOPY FLX DX W/COLLJ SPEC WHEN [...] daily. No current facility-ad (more content not included)...[facility] 09-27-2024 NoteHNO ID: [id number] Author: ISRAEL MINOR MD Service: ? Author Type: Physician Type: Progress Notes Filed: 10/06/2024 17:16 Note Text: Dual Pacer Report In Office Check Date: September 27, 2024 Time: 10:32 AM Devices: Implants Lead Ra Lead Biotronik-09/17/2022 - Implanted Heart Model/Cat number: ADAIR Pena [id number] Serial number: [id number] [employer] Appraiser: [employer] Lot number: LEFT AXILLARY VEIN Size: Right Atrial Pacing Lead Rv Lead Biotronik-09/17/2022 - Implanted Heart Model/Cat number: ADAIR Pena [id number] Serial number: [id number] Auto Damage Insurance Appraiser: [employer] Lot number: LEFT CEPHALIC VEIN Size: Right Ventricular Pacing Lead Pacemaker Dual Pacer Biotronik-09/17/2022 - Implanted (Left) Chest Wall Model/Cat number: GUY PETTITAlexis [id number] Serial number: [id number] [employer] Damage Insurance Appraiser: [employer] Lot number: INITIAL DUAL PACER IMPLANT. Size: [...] and provider appointment. View External Cardiology - General Operations Manager Strips [ID [id number]][facility] 09-27-2024 History of Present illness Narrative* Israel Minor MD - 09/27/2024 10:31 AM EST Dual Pacer Report In Office Check Date: September 27, 2024 Time: 10:32 AM Devices: Implants Lead Ra Lead Biotronik-09/17/2022 - Implanted Heart Model/Cat number: ADAIR Pena [id number] Serial number: [id number] Auto Damage Insurance Appraiser: [employer] Lot number: LEFT AXILLARY VEIN Size: Right Atrial Pacing Lead Rv Lead Biotronik-09/17/2022 - Implanted Heart Model/Cat number: ADAIR Pena [id number] Serial number: [id number] 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 Lot number: LEFT CEPHALIC VEIN Size: Right Ventricular Pacing Lead Pacemaker Dual Pacer Biotronik-09/17/2022 - Implanted (Left) Chest Wall Model/Cat number: [id number] Serial number: [id number] 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 Lot number: INITIAL DUAL PACER IMPLANT. Size: [...] and provider appointment. View External Cardiology - General Operations Manager Strips [ID [id number]] documented in this encounterCleveland [id number] Telephone encounter Note * Telephone Encounter - Mary Ann Samayoa - 09/15/2024 4:12 PM EST Scheduled as directed. Mary Ann Samayoa [facility]11-07-2024 Miscellaneous Notes* Telephone Encounter - Mary [...] possible transfusion 1 week. documented in this encounterBrecksville Va / [facility]11-07-2024 Telephone encounter Note * Telephone Encounter - Shanice Green LPN - 09/15/2024 2:59 PM EST Spoke with pt. Informed he needed to come in next week for CBC poss tx. PSS please put on lab schedule for CBC poss tx 09/22@ 10 am. Shanice Green LPN [facility]11-07-2024 Telephone encounter Note* Telephone Encounter - Baljinder Galloway DO - 09/15/2024 2:50 PM EST Recheck CBC possible transfusion 1 week. [facility]11-07-2024 NoteOhiohealth [facility]11-07-2024 History of Present illness Narrative* Lauri [...] (with VAFs): SF3B1 p.H662Q (41.7%) and TET2 p.Y1875Ilx*6 (46%). The overall findings are consistent with [...] as an outlier. Normal cytogenetics. Moved from [place] to [facility] living at [facility]. Established care here. Drives. Current therapy: 1) Azacitidine. Cycle 10/14/2023. Most recent cycle 05/2023. He was also diagnosed with acute DVT of the internal jugular vein on the right. This occurred despite anticoagulation with rivaroxaban. Port was removed. He was admitted to 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; Confirmed Blk below His by His Bundle Electrogram Chronic atrial fibrillation ([facility]) Chronic heart failure with preserved ejection fraction ([facility]) 07/29/2024 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 2017 when he's been off medication Nocturnal hypoxemia On oxygen at night Osteoarthritis, generalized Pacemaker 09/17/2022 Dual Pacer (FantrotterroniChomp) for High Grade AV Blk below His; [...] RIGHT OP SURGERY Right 12/18/2020 [facility] ARTHROPLASTY TOTAL SHOULDER 11/09/2008 right ARTHROSCOPY OF JOINT UNLISTED 1999 [place] right CABG (4) VEIN GRAFTS & ARTERIAL GRAFT(S) 07/21/2021 In [facility] COLONOSCOPY FLX DX W/COLLJ SPEC WHEN [...] up on iron from today. Lauri Cook APRN.PHOTO MASK PATTERN GENERATOR I spent a total of 30 minutes on the date of the service which included preparing to see the patient, [id number] patient care, completing clinical documentation, performing a [...] evaluation of this patient. documented in this encounterBrecksville Va [facility]10-22-2024 NoteOhiohealth [facility]10-22-2024 History of Present illness Narrative* Ginna [...] Location Dept Phone 09/15/2024 11:15 AM [facility] [phone] 09/15/2024 11:30 AM [facility] GALLOWAY [phone] 09/27/2024 10:30 AM [facility] [address] C[address] J [phone] 09/27/2024 11:00 AM IRAM JOHNSON [facility] Ctr J [phone] Contacted for: Routine Telephonic Outreach Contact made [...] pounds in a week? No Based on shearing machine feeder, the following disposition is advised: No symptoms or symptoms present, not severe. Routed to: No Action Needed MARCELO Education Provided this Outreach: No Ginna Em RN August 30, 2024 2:00 PM documented in this encounterBrecksville Va / [facility]10-17-2024 Telephone encounter Note * Telephone Encounter - Bebo Vasquez RN - 08/25/2024 12:11 PM EDT Alexandra with [facility] Pt called and is notified of providers message and instructions. She voices understanding. Bebo Vasquez RN [facility]10-17-2024 Miscellaneous Notes* Telephone Encounter - Bebo Vasquez RN - 08/25/2024 12:11 PM EDT Alexandra with [facility] Pt called and is notified of providers message and instructions. She voices understanding. Bebo Vasquez RN * Telephone Encounter - Ronaldo Pleitez MD - 08/25/2024 11:56 AM EDT Warm soaks right upper eye lid 15 minutes 4 times a day x 5 days. * Telephone Encounter - Julieta Reed RN - 08/24/2024 11:13 AM EDT Carina with [facility] calls to report last evening patient was noted to have some swelling and rednessto upper right eye lid approximately 0.3 cm in diameter. Continues today. She reports no drainage, itch, pain, or redness to the sclera, or fever. She says it appears to be a stye. Asking if provider wants anything done. Requests call back at [phone]. Julieta Reed RN documented in this encounterBrecksville Va / [facility]10-17-2024 Telephone encounter Note * Telephone Encounter - Ronaldo Pleitez MD - 08/25/2024 11:56 AM EDT Warm soaks right upper eye lid 15 minutes 4 times a day x 5 days. [facility]10-16-2024 Telephone encounter Note* Telephone Encounter - Julieta Reed RN - 08/24/2024 11:13 AM EDT Carina with [facility] calls to report last evening patient was noted to have some swelling and rednessto upper right eye lid approximately 0.3 cm in diameter. Continues today. She reports no drainage, itch, pain, or redness to the sclera, or fever. She says it appears to be a stye. Asking if provider wants anything done. Requests call back at [phone]. Julieta Reed RN [facility]09-24-2024 NoteOhiohealth Arthur G.[facility]. [facility]09-24-2024 History of Present illness Narrative* Ginna [...] if symptoms worsen. At his request, sent [employer] message with phone number for billing. Completed CHF goal. Appointments for Next 60 Days Date Time Provider Location Dept Phone 08/22/2024 11:00 AM [facility] [phone] 09/15/2024 11:15 AM [facility] [phone] 09/15/2024 11:30 AM [facility]OSIAS[facility]JINDER [facility] [phone] 09/27/2024 10:30 AM [facility] [address] J [phone] 09/27/2024 11:00 AM IRAM JOHNSON [facility] Ctr J [phone] Contacted for: Routine Telephonic Outreach Contact made [...] pounds in a week? No Based on shearing machine feeder, the following disposition is advised: No symptoms or symptoms present, not severe. Routed to: No Action Needed MARCELO Education Provided this Outreach: No Ginna Em RN August 02, 2024 11:23 AM documented in this encounterBrecksville Va / [facility]-20[facility]2024 NoteOhio[facility] History of Present illness Narrative* Ronaldo Pleitez MD - 07/29/2024 11:33 AM EDT This note was created using Placelyriter. Subjective Srini Luis is a 88 year old male was here with daughter. He had minor congestion and cough for afew days. He was tested negative for Covid at [facility]. Overall, he felt well. His cardiovascular [...] Accident) (Hcc) Chb (Complete Heart Block) (Hcc) Fdc Current Use of Anticoagulant Lymphedema of Both [...] January. Ronaldo Pleitez MD documented in this encounterBrecksville [facility]09-13-[facility]24 Telephone encounter Note * Telephone Encounter - Sinai Jay - 07/22/2024 12:04 PM EDT Lab scheduled [facility] Work Phone: [phone] Miscellaneous Notes* Telephone Encounter - Sinai Jay [...] month. Baljinder Galloway DO documented in this encounterBrecksville Va / [facility]09-13-2024 Telephone encounter Note * Telephone Encounter - Liza Shipman LPN - 07/22/2024 9:03 AM EDT Patient notified. PSS- please schedule a lab appointment for CBC(?TX) 08/22/2024 @ 11:00. Patient is aware of appointment date and time. Liza Shipman LPN [facility]09-13-2024 Telephone encounter Note* Telephone Encounter - Baljinder Galloway DO - 07/22/2024 6:30 AM EDT Hgb down a tiny bit, but essentially stable. Recheck CBC for poss trans in about a month. Baljinder Galloway DO [facility]08-27-2024 History of Present illness Narrative* Ginna Em, [...] in the food. Last time reached by Administrative Law Judge: 05/11/24 with 3 attempts since then. ADL/falls/goals [...] Location Dept Phone 07/21/2024 10:00 AM LAB [facility] [phone] 07/29/2024 11:[address] [facility] [phone] Contacted for: Routine Telephonic Outreach Contact made [...] pounds in a week? No Based on shearing machine feeder, the following disposition is advised: No symptoms or symptoms present, not severe. Routed to: No Action Needed MARCELO Education Provided this Outreach: No Ginna Em RN July 05, 2024 2:10 PM documented in this encounterBrecksville Va / [facility]08-26-2024 History of Present illness Narrative* Ginna Em RN - 07/04/2024 3:52 PM EDT CDM Telephonic Outreach Provider Action/FYI CHF Assisted living staff assist with meals, medications, wts, and BPs Left VM. Last time reached by Administrative Law Judge: 06/08/24 with 3 attempts since then. ADL/falls/goals assessments due: 10/07/24 Last time SDH for transportation/food insecurity completed: 12/03/23 Recent admit/ED visit since last CDM call?: NA Goals:Review CHF zone sheet at next call Appointments for Next 60 Days Date Time Provider Location Dept Phone 07/21/2024 10:00 AM LAB [facility] [phone] 07/29/2024 11:00 AM RONALDO PLEITEZ [facility] [place] [phone] Contacted for: Routine Telephonic Outreach Contact made with patient: No, left message. Ginna Em RN July 04, 2024 3:56 PM documented in this encounterBrecksville Va / [facility]08-09-2024 History of Present illness Narrative* Israel Minor MD - 06/17/2024 11:46 AM EDT Dual Pacer Remote Check Date: June 17, 2024 Time: 11:46 AM Devices: Implants Lead Ra Lead Biotronik-09/17/2022 - Implanted Heart Model/Cat number: ADAIR [id number] Serial number: [id number] 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 Media Lot number: LEFT AXILLARY VEIN Size: Right Atrial Pacing Lead Rv Lead Biotronik-09/17/2022 - Implanted Heart Model/Cat number: ADAIR Pena [id number] Serial number: [id number] 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 Media Lot number: LEFT CEPHALIC VEIN Size: Right Ventricular Pacing Lead Pacemaker Dual Pacer Biotronik-09/17/2022 - Implanted (Left) Chest Wall Model/Cat number: [id number] Serial number: [id number] Auto Damage Insurance Appraiser: [email or web address] Media Lot number: INITIAL DUAL PACER IMPLANT. Size: [...] View External Cardiology - Programme Strips [ID [id number]] documented in this encounterBrecksville Va / [facility]08-08-2024 History of Present illness Narrative* Baljinder Galloway DO - 06/16/2024 9:36 AM EDT Diagnosis: 1) [...] (with VAFs): SF3B1 p.H662Q (41.7%) and TET2 p.[id number]*6 (46%). The overall findings are consistent with [...] as an outlier. Normal cytogenetics. Moved from [place] to [facility] living at [facility]. Established care here. Drives. Current therapy: 1) Azacitidine. Cycle 10/14/2023. Most recent cycle 05/2023. He was also diagnosed with acute DVT of the internal jugular vein on the right. This occurred despite anticoagulation with rivaroxaban. Port was removed. He was admitted to 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 and now Bilateral BBB; Confirmed Blk below His by His Bundle Electrogram No date: Chronic atrial fibrillation ([facility]) 12/01/2022: 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 ([facility]) 08/22/2022: CVA (cerebral vascular accident) ([facility]) No date: Diverticulosis No date: History of anemia 07/22/2021: Hx of CABG Comment: 4 vessel CABG with ORNELAS-LAD, SVG-RI, SVG-OM, and SVG-RCA in [place] No date: Hypertension No date: Hypothyroidism No date: [facility] current use of anticoagulant Comment: Xarelto 20 mg daily 03/12/2023: MDS (myelodysplastic syndrome) ([facility]) No date: Mixed hyperlipidemia No date: Myasthenia gravis ([facility]) Comment: Last seen by neurology July 29, [...] 05/05/2023: Thrombosis of right internal jugular vein ([facility]) Comment: Port a Cath removed. 07/11/2020: Venous stasis of both lower extremities 08/25/2022: Vertebral artery occlusion, left 07/11/2020: Vitamin D deficiency PAST SURGICAL HISTORY 12/18/2020: ANKLE RIGHT OP SURGERY; Right Comment: Dr Arreola [facility] 11/09/2008: ARTHROPLASTY TOTAL SHOULDER Comment: right 1999: ARTHROSCOPY OF JOINT UNLISTED Comment: Elbow right 07/21/2021: CABG (4) VEIN GRAFTS & ARTERIAL GRAFT(S) Comment: In [facility] 09/01/2005: COLONOSCOPY FLX DX W/COLLJ SPEC [...] which included preparing to see the patient, [id number] patient care, completing clinical documentation, obtaining and/or reviewing separately obtained history, performing a medically appropriate examination, counseling and educating the pat ient/family/caregiver, ordering medications, tests, or procedures, communicating with other HCPs (not separately reported), and communicating results to the patient/family/caregiver. Baljinder Galloway DO documented in this encounterBrecksville Va / [facility]08-01-2024 History of Present illness Narrative* Ginna Em, RN - 06/09/2024 8:34 AM EDT CDM Telephonic Outreach Provider Action/FYI 2nd TO attempt CHF Assisted living staff assist with meals, medications, wts, and BPs Left VM. Sent CHF zone sheet in [employer] message to be reviewed at next call. Last time reached by Administrative Law Judge: 05/11/24 ADL/falls/goals assessments due: 10/07/24 Last time SDH for transportation/food insecurity completed: 12/03/23 Recent admit/ED visit since last CDM call?: NA Goals: Appointments for Next 60 Days Date Time Provider Location Dept Phone 06/16/2024 8:45 AM LAB [facility] [phone] 06/16/2024 9:10 AM BALJINDER GALLOWAY [phone] 06/17/2024 1:15 PM REM DEVICE [address] J [phone] 07/29/2024 11:00 AM RONALDO PLEITEZ [facility] [place] [phone] Contacted for: Routine Telephonic Outreach Contact made with patient: No, left message. Ginna Em RN June 09, 2024 10:16 AM documented in this encounterBrecksville Va / [facility]07-31-2024 History of Present illness Narrative* Ginna Em RN - 06/08/2024 8:41 AM EDT CDM Telephonic Outreach Provider Action/GILBERTO CHF Assisted living staff assist with meals, medications, wts, and BPs Left VM Last time reached by Administrative Law Judge: 05/11/24 ADL/falls/goals assessments due: 10/07/24 Last time SDH for transportation/food insecurity completed: 12/03/23 Recent admit/ED visit since last CDM call?: NA Goals: Appointments for Next 60 Days Date Time Provider Location Dept Phone 06/16/2024 8:45 AM LAB [facility] [phone] 06/16/2024 9:10 AM BALJINDER GALLOWAY [place] [phone] 06/17/2024 1:15 PM [facility] [address] J [phone] 07/29/2024 11:[address] [facility] [phone] Contacted for: Routine Telephonic Outreach Contact made with patient: No, left message. Ginna Em RN June 08, 2024 11:34 AM documented in this encounterBrecksville Va / [facility]07-17-2024 History of Present illness Narrative* Ephraim Kraft, GLENYS - 05/25/2024 7:30 AM EDT POPULATION HEALTH NAVIGATION OUTREACH Action/GILBERTO Patient is on the [place] Medication Adherence list for the following medications: ATORVASTATIN 20MG TAB Dispensed: 01/22/2024 12:00 AM Unit strength: 20 Unit form: tablet Days supply: 90 Quantity: 90 tablet [facility] [place], [place] [address] - [address] [facility] [phone] Next dispense due date: 04/21/24 Outcome: Refills available on current prescription. Called [facility] and spoke with nurse Luu. Patient is taking the Atorvastatin daily. He was on 40 mg daily before it was changed to 20mg daily so they were giving him 1/2 tablet of the 40 mg tablets until the medication ran out. The patient currently has a one month supply remaining. [facility]. [...] pharmacy:Calling in refill for patient Navigation Signature: Ephraim Kraft MA May 25, 2024 7:31 AM documented in this encounterBrecksville Va / [facility]07-03-2024 History of Present illness Narrative* Ginna [...] at this time. Last time reached by Administrative Law Judge: 04/12/24 ADL/falls/goals assessments due: 10/07/24 Last time SDH for transportation/food insecurity completed: 12/03/23 Recent admit/ED visit since last CDM call?: NA Appointments for Next 60 Days Date Time Provider Location Dept Phone 06/16/2024 8:45 AM LAB [facility] [phone] 06/16/2024 9:10 AM BALJINDER GALLOWAY [phone] 06/17/2024 1:15 PM [facility] [address] J [phone] Contacted for: Routine Telephonic Outreach Contact made [...] daily weight at home? No Based on shearing machine feeder, the following disposition is advised: No symptoms or symptoms present, not severe. Routed to: No Action Needed MARCELO Education Provided this Outreach: No Ginna Em RN May 11, 2024 3:06 PM documented in this encounterBrecksville Va / [facility]07-02-2024 History of Present illness Narrative* Ginna Em RN - 05/10/2024 7:41 AM EDT CDM Telephonic Outreach Provider Action/FYI CHF Assisted living staff assist with meals, medications, wts, and BPs Left VM Last time reached by Administrative Law Judge: 04/12/24 ADL/falls/goals assessments due: 10/07/24 Last time SDH for transportation/food insecurity completed: 12/03/23 Recent admit/ED visit since last CDM call?: NA Appointments for Next 60 Days Date Time Provider Location Dept Phone 06/16/2024 8:45 AM LAB [facility] [phone] 06/16/2024 9:10 AM BALJINDER GALLOWAY [phone] 06/17/2024 1:15 PM [facility] [address] J [phone] Contacted for: Routine Telephonic Outreach Contact made with patient: No, left message. Ginna Em RN May 10, 2024 10:42 AM documented in this encounterBrecksville Va / [facility]06-04-2024 History of Present illness Narrative* Ginna Em RN - 04/12/2024 8:21 AM EDT CDM Telephonic Outreach Provider Action/FYI CHF Assisted living staff assist with meals, medications, wts, and BPs Spoke with the patient who reports that he is feeling well and has no needs at this time. Last time reached by Administrative Law Judge: 03/15/24 ADL/falls/goals assessments due: 10/07/24 Last time [...] pounds in a week? No Based on shearing machine feeder, the following disposition is advised: No symptoms or symptoms present, not severe. Routed to: No Action Needed MARCELO Education Provided this Outreach: No Ginna Em RN April 12, 2024 10:51 AM documented in this encounterBrecksville Va / [facility]05-09-2024 History of Present illness Narrative* Baljinder [...] (with VAFs): SF3B1 p.H662Q (41.7%) and TET2 p.[id number]*6 (46%). The overall findings are consistent with a 2021 [facility] and 5th edition WHO diagnosis of chronic [...] as an outlier. Normal cytogenetics. Moved from [place] to assisted living at [facility]. Established care here. Drives. Current therapy: 1) Azacitidine. Cycle 10/14/2023. Most recent cycle 05/2023. He was also diagnosed with acute DVT of the internal jugular vein on the right. This occurred despite anticoagulation with rivaroxaban. Port was removed. He was admitted to 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 Vitamin D deficiency 07/11/2020 PAST SURGICAL HISTORY Procedure Laterality Date ANKLE RIGHT OP SURGERY Right 12/18/2020 Dr Elba [facility] ARTHROPLASTY TOTAL SHOULDER 11/09/2008 right ARTHROSCOPY OF JOINT UNLISTED 1999 Elbow right CABG (4) VEIN GRAFTS & ARTERIAL GRAFT(S) 07/21/2021 In [facility] COLONOSCOPY FLX DX W/COLLJ SPEC WHEN [...] which included preparing to see the patient, [id number] patient care, completing clinical documentation, obtaining and/or reviewing separately obtained history, performing a medically appropriate examination, counseling and educating the pat ient/family/caregiver, communicating with other HCPs (not separately reported), and communicating results to the patient/family/caregiver. Baljinder Galloway DO documented in this encounterBrecksville Va [facility]05-07-2024 History of Present illness Narrative* Ginna Em, RN - 03/15/2024 8:14 AM EDT CDM Telephonic Outreach Provider Action/FYI 2nd TO attempt CHF Assisted living staff assist with meals, medications, wts, and BPs Spoke with patient who reports that he is feeling well and has no needs or concerns at this time. Last time reached by Administrative Law Judge: 02/15/24 ADL/falls/goals assessments due: 10/07/24 Last time SDH for transportation/food insecurity completed: 12/03/23 Recent admit/ED visit since last CDM call?: NA Appointments for Next 60 Days Date Time Provider Location Dept Phone 03/17/2024 11:15 AM LAB [facility] [phone] 03/17/2024 11:50 AM BALJINDER GALLOWAY [phone] Contacted for: Routine Telephonic Outreach Contact made [...] daily weight at home? No Based on shearing machine feeder, the following disposition is advised: No symptoms or symptoms present, not severe. Routed to: No Action Needed MARCELO Education Provided this Outreach: No Ginna Em RN March 15, 2024 11:13 AM documented in this encounterBrecksville Va / [facility]05-06-2024 History of Present illness Narrative* Ginna Em RN - 03/14/2024 8:38 AM EDT CDM Telephonic Outreach Provider Action/FYI CHF Assisted living staff assist with meals, medications, wts, and BPs Left VM Last time reached by Administrative Law Judge: 02/15/24 ADL/falls/goals assessments due: 10/07/24 Last time SDH for transportation/food insecurity completed: 12/03/23 Recent admit/ED visit since last CDM call?: NA Appointments for Next 60 Days Date Time Provider Location Dept Phone 03/17/2024 11:15 AM [facility] [phone] 03/17/2024 11:50 AM BALJINDER GALLOWAY [facility] [phone] Contacted for: Routine Telephonic Outreach Contact made with patient: No, left message. Ginna Em RN March 14, 2024 2:41 PM documented in this encounterBrecksville Va / [facility]04-22-2024 History of Present illness Narrative* Iram Johnson, CAKE PRESS OPERATOR HELPER.PHOTO MASK PATTERN GENERATOR - 02/29/2024 2:20 PM EDT [facility] Ronaldo Pleitez MD SUBJECTIVE: Srini [...] disorder 08/25/2022 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 ([facility]) 08/22/2022 Pontine infarction, R>L B12 deficiency 07/11/2020 Benign hypertension 08/14/2021 CAD (coronary artery disease) Cellulitis of right leg 05/14/2023 with sepsis, bacteremia CHB (complete heart block) ([facility]) 09/17/2022 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 and now Bilateral BBB; Confirmed Blk below His by His Bundle Electrogram Chronic atrial fibrillation ([facility]) 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 Vitamin D deficiency 07/11/2020 PAST SURGICAL HISTORY Procedure Laterality Date ANKLE RIGHT OP SURGERY Right 12/18/2020 Dr Arreola [facility] ARTHROPLASTY TOTAL SHOULDER 11/09/2008 right ARTHROSCOPY OF JOINT UNLISTED 2000 Elbow right CABG (4) VEIN GRAFTS & ARTERIAL GRAFT(S) 07/21/2021 In [facility] COLONOSCOPY FLX DX W/COLLJ SPEC WHEN [...] current medications. 2. Coronary artery disease involving [place] coronary artery of [place] heart without angina pectoris- ICD9: 414.01, ICD10: [...] dysfunction. The patient is on Xarelto. 7. 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 documented in this encounterBrecksville Va / [facility]04-22-2024 History of Present illness Narrative* Israel Minor MD - 02/29/2024 2:00 PM EDT Dual Pacer Report In Office Check Date: February 29, 2024 Time: 11:20 AM Devices: Implants Lead Ra Lead Biotronik-09/17/2022 - Implanted Heart Model/Cat number: ADAIR Pena [id number] Serial number: [id number] Auto Damage Insurance Appraiser: [employer] Lot number: LEFT AXILLARY VEIN Size: Right Atrial Pacing Lead Rv Lead Biotronik-09/17/2022 - Implanted Heart Model/Cat number: ADAIR Pena [id number] Serial number: [id number] 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 Media Lot number: LEFT CEPHALIC VEIN Size: Right Ventricular Pacing Lead Pacemaker Dual Pacer Biotronik-09/17/2022 - Implanted (Left) Chest Wall Model/Cat number: GUY Wood ADRIANA [id number] Serial number: [id number] 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 Media Lot number: INITIAL DUAL PACER IMPLANT. Size: [...] and provider appointment. View External Cardiology - General Operations Manager Strips [ID [id number]] documented in this encounterBrecksville Va / [facility]04-13-2024 Miscellaneous Notes* Telephone Encounter - Samara Baker RN - 02/20/2024 11:59 AM EDT Called and spoke with Alexandra and notified of Dr. Pleitez's information, recommendations and orders.Order for TSH and this phone encounter with new med orders faxed to Alexandra at [facility] [phone]. * Telephone Encounter - Ronaldo Pleitez MD - 02/20/2024 11:35 AM EDT I sent new prescription to [facility]. Routine, no marinelli needed. Have patient come for repeat TSH in 3 months. * Telephone Encounter - Samara Baker RN - 02/20/2024 10:59 AM EDT Pt returned call and notified to change dosage of Synthroid. Pt states he lives at [facility] and that we need to notify them of med change. Called and spoke with nurse Alexandra and notified of medication Synthroid dosage change. Pt uses a mail order service [facility] where prescription was sent. That will [...] print order and fax to Alexandra at [phone] and she willforward it to [facility] to get filled to take now. Please call Alexandra back at [facility] with provider's response. [phone] * Telephone Encounter - Yenny Gibson LPN [...] to 100 mcg daily. documented in this encounterBrecksville Va / [facility]04-08-2024 History of Present illness Narrative* Ginna Em RN - 02/15/2024 8:48 AM EDT CDM Telephonic Outreach Provider Vinnie/GILBERTO CHF Assisted living staff assist with meals, medications, wts, and BPs Spoke with patient who reports that he is feeling well and has no needs at this time. Appointments for Next 60 Days Date Time Provider Location Dept Phone 02/18/2024 11:15 AM LAB [facility]elyn Cardona [phone] 02/29/2024 2:00 PM [facility] [address] J [phone] 02/29/2024 2:20 PM IRAM JOHNSON [facility] Ctr J [phone] 03/17/2024 11:15 AM LAB [facility]quelyn Cardona [phone] 03/17/2024 11:50 AM BALJINDER GALLOWAY [phone] Contacted for: Routine Telephonic Outreach Contact made [...] No assisted living staff check Based on shearing machine feeder, the following disposition is advised: No symptoms or symptoms present, not severe. Routed to: No Action Needed MARCELO Education Provided this Outreach: No Ginna Em RN February 15, 2024 10:55 AM documented in this encounterBrecksville Va / [facility]03-15-2024 Instructions* Patient Instructions* Ronaldo Pleitez MD - 01/22/2024 11:50 AM EDT SEE LASIX DOSE CHANGE. documented in this encounterBrecksville Va / [facility]03-15-2024 History of Present illness Narrative* Ronaldo Pleitez MD - 01/22/2024 11:38 AM EDT This note was created using Timetovisit. Subjective Srini Luis is a 88 year [...] Accident) (Hcc) Chb (Complete Heart Block) (Hcc) Policy Advisor Current Use of Anticoagulant Mds (Myelodysplastic Syndrome) [...] (Hematology). Conrad De La Rosa DPM (Podiatry) [facility]. [place] Miranda MD. Medical/Family history review [...] provided - Vaccines reviewed. documented in this encounterBrian [place] [id number] History of Present illness Narrative* Ginna Em RN - 01/01/2024 9:04 AM EST CDM Telephonic Outreach Provider Vinnie/GILBERTO CHF Assisted living staff assist with meals, medications, wts, and BPs Left Appointments for Next 60 Days Date Time Provider Location Dept Phone 01/21/2024 11:15 AM [facility] [place] [facility] [phone] 01/22/2024 11:00 AM PLEITEZ RONALDO [facility] [phone] 02/09/2024 1:00 PM [facility] [address] Ctr J [phone] 02/09/2024 1:40 PM IRAM JOHNSON Robyn [facility] Ctr J [phone] 02/18/2024 11:15 AM [facility] [place] [facility] [phone] Contacted for: Routine Telephonic Outreach Contact made with patient: No, left message. Ginna Em RN January 01, 2024 2:06 PM documented in this encounterBrecksville [facility] History of Present illness Narrative* Baljinder Galloway DO - 12/24/2023 11:26 AM EST Diagnosis: 1) [...] (with VAFs): SF3B1 p.H662Q (41.7%) and TET2 p.[id number]*6 (46%). The overall findings are consistent with [...] as an outlier. Normal cytogenetics. Moved from [place] to [facility] living at [facility]. Established care here. Drives. Current therapy: 1) Azacitidine. Cycle 10/14/2023. Most recent cycle 05/2023. He was also diagnosed with acute DVT of the internal jugular vein on the right. This occurred despite anticoagulation with rivaroxaban. Port was removed. He was admitted to [facility] 05/15 through 05/18 for gram-negative bacteremia attributed [...] Diagnosis Date 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 ([facility]) 08/22/2022 Pontine infarction, R>L B12 deficiency 07/11/2020 Benign hypertension 08/14/2021 CAD (coronary artery disease) CHB (complete heart block) ([facility]) 09/17/2022 High Grade AV Block in setting of Chronic RBBB and now Bilateral BBB; Confirmed Blk below His by His Bundle Electrogram Chronic atrial fibrillation (HCC) Chronic heart failure with preserved ejection fraction (HCC) 06/16/2023 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 CVA (cerebral vascular accident) ([facility]) 08/22/2022 Diverticulosis History of anemia Hx of CABG 07/22/2021 4 vessel CABG with ORNELAS-LAD, SVG-RI, SVG-OM, and SVG-RCA in [place] Hx of colonoscopy 09/27/2015 no reported polyps per patient recollection Hypertension Hypothyroidism 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 PAST SURGICAL HISTORY Procedure Laterality Date ANKLE RIGHT OP SURGERY Right 12/18/2020 Dr Arreola [facility] ARTHROPLASTY TOTAL SHOULDER 11/09/2008 right ARTHROSCOPY OF JOINT UNLISTED 1999 Elbow right CABG (4) VEIN GRAFTS & ARTERIAL GRAFT(S) 07/21/2021 In [facility] COLONOSCOPY FLX DX W/COLLJ SPEC WHEN [...] which included preparing to see the patient, [id number] patient care, completing clinical documentation, obtaining and/or reviewing separately obtained history, performing a medically appropriate examination, counseling and educating the pat ient/family/caregiver, ordering medications, tests, or procedures, communicating with other HCPs (not separately reported), and communicating results to the patient/family/caregiver. Baljinder Galloway DO documented in this encounterBrecksville [facility]02-15-2024 Miscellaneous Notes* Telephone Encounter - Yenny Gibson LPN - 12/24/2023 10:23 AM EST Spoke with daughter and message below given. Also contacted [facility] with results. [facility] askedto have a copy faxed to [phone]. Done. Yenny Gibson LPN * Telephone Encounter - Yenny Gibson LPN - 12/24/2023 10:22 AM EST ----- Message from Ronaldo Pleitez MD sent at 12/24/2023 9:29 AM EST ----- Xray right elbow with no acute bone abnormality. documented in this encounterBrecksville Va [facility]02-14-2024 History of Present illness Narrative* Jory [...] PATIENT PRESENTS WITH AN IMPLANTABLE OR ATTACHED CUPOLA OPERATOR: No RADIOLOGY DEPARTMENT: General X-ray: Exam(s) Completed: Upper Extremity X- Ray(s): Elbow, right PERIPHERAL IV DATA: Not applicable SIGNED BY: RT Shirley(R) December 23, 2023 12:38 PM documented in this encounterBrecksville Va [facility]02-14-2024 History of Present illness Narrative* Ronaldo Pleitez MD - 12/23/2023 11:41 AM EST Images from the original note were not included. This note was created using Placelyriter. Subjective Patient presents with: Right arm pain [...] Accident) (Hcc) Chb (Complete Heart Block) (Hcc) Fdc Current Use of Anticoagulant Mds (Myelodysplastic Syndrome) (Hcc) Myasthenia Gravis (Hcc) Lymphedema of Both Lower Extremities Chronic Heart Failure With Preserved Ejection Fraction ([facility]) Vertebral Artery Occlusion, Left Thrombosis of Right [...] days. Ronaldo Pleitez MD documented in this encounterBrecksville [facility]02-12-2024 Miscellaneous Notes* Telephone Encounter - Liza Shipman LPN - 12/21/2023 4:12 PM EST Medication list updated. Liza Shipman LPN * Telephone Encounter - Baljinder Galloway DO - 12/21/2023 3:49 PM EST I checked in his history of medications. Looks like he reported to the [place] at the time of OV he was [...] medication question she wanted to discuss. States long-term didn't have a medication she thought he was on listed in their records. documented in this encounterBrecksville [facility]02-09-2024 Miscellaneous Notes* Telephone Encounter - Robyn Hollis RN - 12/18/2023 1:49 PM EST Daughter reports pt changed insurance at the beginning of the year. [facility] P[facility]. Patient has been identified by name [...] you. Robyn Hollis RN. documented in this encounterBrecksville Va / [facility]11-29-2023 History of Present illness Narrative* Ginna [...] Location Dept Phone 10/29/2023 10:30 AM [facility] [place] [facility] [phone] 11/06/2023 1:50 PM [facility] [address] C[address] J [phone] 11/26/2023 10:30 AM [facility] [place] [facility] [phone] Contacted for: Routine Telephonic Outreach Contact made [...] pounds in a week? No Based on shearing machine feeder, the following disposition is advised: No symptoms or symptoms present, not severe. Routed to: No Action Needed MARCELO Education Provided this Outreach: No Ginna Em RN October 07, 2023 11:12 AM documented in this encounterBrecksville Va / [facility]11-22-2023 History of Present illness Narrative* Baljinder [...] (with VAFs): SF3B1 p.H662Q (41.7%) and TET2 p.[id number]*6 (46%). The overall findings are consistent with [...] as an outlier. Normal cytogenetics. Moved from [place] to assisted living at [facility]. Established care here. Drives. Current therapy: 1) Azacitidine. Cycle 10/14/2023. Most recent cycle 05/2023. He was also diagnosed with acute DVT of the internal jugular vein on the right. This occurred despite anticoagulation with rivaroxaban. Port was removed. He was admitted to [facility] 05/15 through 05/18 for gram-negative bacteremia attributed to right lower extremity cellulitis. He was initially treated with IV broad-spectrum antibioticsincluding Zosyn and discharged on Levaquin. Blood cultures cleared prior to discharge. Presents for ongoing oncologic management. Interim history: No complaints today. No acute illnesses since last seen. NE is serving meals in room due to a case of Covid--Dining laureano closed temporarily closed. No dyspnea with walking. Uses cane. Drives. No unusual bleeding. Enjoys walking but limited by lumbar spinal stenosis. Constipation can be an issue. Eats a lot of prunes. Using Miralax prn. 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 CVA (cerebral vascular accident) ([facility]) 08/22/2022 Diverticulosis History of anemia Hx of CABG 07/22/2021 4 vessel CABG with ORNELAS-LAD, SVG-RI, SVG-OM, and SVG-RCA in [place] Hx of colonoscopy 09/27/2015 no reported polyps per patient recollection Hypertension Hypothyroidism 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 PAST SURGICAL HISTORY Procedure Laterality Date ANKLE RIGHT OP SURGERY Right 12/18/2020 Dr Arreola [facility] ARTHROPLASTY TOTAL SHOULDER 11/09/2008 right ARTHROSCOPY OF JOINT UNLISTED Elbow right CABG (4) VEIN GRAFTS & ARTERIAL GRAFT(S) 07/21/2021 In [facility] COLONOSCOPY FLX DX W/COLLJ SPEC WHEN [...] which included preparing to see the patient, [id number] patient care, completing clinical documentation, obtaining and/or reviewing separately obtained history, performing a medically appropriate examination, counseling and educating the pat ient/family/caregiver, ordering medications, tests, or procedures, communicating with other HCPs (not separately reported), and communicating results to the patient/family/caregiver. Baljinder Galloway DO documented in this encounterBrecksville Va [facility]10-30-2023 History of Present illness Narrative* Ginna [...] Location Dept Phone 09/30/2023 9:30 AM [facility] [place] [facility] [phone] 09/30/2023 9:50 AM BALJINDER GALLOWAY [phone] Contacted for: Routine Telephonic Outreach Contact made [...] daily weight at home? No Based on shearing machine feeder, the following disposition is advised: No symptoms or symptoms present, not severe. Routed to: No Action Needed MARCELO Education Provided this Outreach: Flor Em RN September 07, 2023 3:02 PM documented in this encounterBrecksville Va / [facility]09-22-2023 Miscellaneous Notes* Telephone Encounter - Stephany Abraham LPN - 07/31/2023 2:51 PM EDT Patient is agreeable to stopping his metoprolol. I will repor OLIVE PACKER to [place] again in 1 week. * Telephone Encounter [...] to decrease ventricular pacing. He was 88% OLIVE PACKER now he is 80% OLIVE PACKER. documented in this encounterBrecksville Va / [facility]09-20-2023 History of Present illness Narrative* Ginna Em RN - 07/29/2023 8:01 AM EDT [facility] Telephonic Outreach Provider Vinnie/MARIA ELENAI CHF Spoke with patient who reports [...] Location Dept Phone 08/06/2023 11:45 AM [facility] [place] [facility] [phone] 08/06/2023 12:10 PM BALJINDER GALLOWAY [place] [phone] Contacted for: Routine Telephonic Outreach Contact made [...] pounds in a week? No Based on shearing machine feeder, the following disposition is advised: No symptoms or symptoms present, not severe. Routed to: No Action Needed MARCELO Education Provided this Outreach: No Ginna Em RN July 29, 2023 2:12 PM documented in this encounterBrecksville Va / [facility]09-15-2023 History of Present illness Narrative* Jana, MARTIN Bell.PHOTO MASK PATTERN GENERATOR - 07/24/2023 10:10 AM EDT CC: Patient presents with: Follow Up HPI Srini Luis is a 87 year old male who presents today for above. He was last seen 06/12 to [facility]. 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; Confirmed Blk below His by His Bundle Electrogram Chronic atrial fibrillation ([facility]) Chronic heart failure with preserved ejection fraction ([facility]) 06/16/2023 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 ([facility]) 12/01/2022 CVA (cerebral vascular accident) ([facility]) 08/22/2022 Diverticulosis History of anemia Hx of CABG 07/22/2021 4 vessel CABG with ORNELAS-LAD, SVG-RI, SVG-OM, and SVG-RCA in [place] Hx of colonoscopy 09/27/2015 no reported polyps per patient recollection Hypertension Hypothyroidism 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; Confirmed Blk below His by His Bundle Electrogram Chronic atrial fibrillation ([facility]) Chronic heart failure with preserved ejection fraction ([facility]) 06/16/2023 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 ([facility]) 12/01/2022 CVA (cerebral vascular accident) ([facility]) 08/22/2022 Diverticulosis History of anemia Hx of CABG 07/22/2021 4 vessel CABG with ORNELAS-LAD, SVG-RI, SVG-OM, and SVG-RCA in [place] Hx of colonoscopy 09/27/2015 no reported polyps per patient recollection Hypertension Hypothyroidism 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 [...] RIGHT OP SURGERY Right 12/18/2020 Dr [facility] ARTHROPLASTY TOTAL SHOULDER 11/09/2008 right ARTHROSCOPY OF JOINT UNLISTED Elbow right CABG (4) VEIN GRAFTS & ARTERIAL GRAFT(S) 07/21/2021 In [facility] COLONOSCOPY FLX DX W/COLLJ SPEC WHEN [...] current medications. 2. Coronary artery disease involving [place] coronary artery of [place] heart without angina pectoris- ICD9: 414.01, ICD10: [...] remote pacemaker check in 1 week. 5. [facility] current use of anticoagulant - ICD9: V58.61, [...] a dual-chamber pacemaker. Stable. documented in this encounterBrecksville Va / [facility]09-14-2023 History of Present illness Narrative* Israel Minor MD - 07/23/2023 10:00 AM EDT Dual Pacer Report In Office Check Date: July 23, 2023 Time: 8:34 AM Devices: Implants Lead Ra Lead Biotronik-09/17/2022 - Implanted Heart Model/Cat number: ADAIR S [id number] Serial number: [id number] Auto Damage Insurance Appraiser: [employer] Lot number: LEFT AXILLARY VEIN Size: Right Atrial Pacing Lead Rv Lead Biotronik-09/17/2022 - Implanted Heart Model/Cat number: ADAIR S [id number] Serial number: [id number] 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 Lot number: LEFT CEPHALIC VEIN Size: Right Ventricular Pacing Lead Pacemaker Dual Pacer Biotronik-09/17/2022 - Implanted (Left) Chest Wall Model/Cat number: [id number] Serial number: [id number] 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 Lot number: INITIAL DUAL PACER IMPLANT. [...] 160 Additional Device Information -VS percent: 13% -OLIVE PACKER percent: 81% AP-VS percent: 0% AP-OLIVE PACKER percent: 4% Atrial: Threshold: Chronic AFIB Programmed [...] and provider appointment. 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; Confirmed Blk below His by His Bundle Electrogram Symptomatic bradycardia 09/15/2022 11/1 Weakness generalized 09/15/2022 024 Malnutrition of moderate [...] , severe LCS L2-3 Osteoarthritis, generalized 06/16/2023 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 current use of ant icoagulants with INR goal of 2.0-3.0 09/15/2022 Nocturnal hypoxemia 08/29/20 Overview: On oxygen at night PVC's (premature ventricular contractions) 06/16/2023 RBBB 06/16/2023 documented as of this encounter (statuses as of 01/22/2024) [facility] History of Past illness Narrative* Problem [...] July 2017 when he's been off medication 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 current use of ant icoagulants with INR [...] , severe LCS L2-3 Osteoarthritis, generalized 06/16/2023 [facility] current use of ant icoagulants with INR goal of 2.0-3.0 09/15/2022 Nocturnal hypoxemia 08/29/20 22 Overview: On oxygen at night PVC's (premature ventricular contractions) 06/16/2023 RBBB 06/16/2023 documented as of this encounter (statuses as of 02/15/2024) [facility] History of Past illness Narrative* Problem Noted Date Diagnosed Date Resolved Date RBBB 07/16/2023 01/22/2024 Nocturnal hypoxemia 07/16/2023 01/22/20 24 Overview: On oxygen at night Diverticulosis 07/16/2023 01/22/2024 Cellulitis of right leg 05/14/2023 04/1 01/2024 Overview: with sepsis, bacteremia Thrombosis of right [...] July 2017 when he's been off medication [facility] current use of ant icoagulants with INR [...] , severe LCS L2-3 Osteoarthritis, generalized 06/16/2023 [facility] current use of ant icoagulants with INR goal of 2.0-3.0 09/15/2022 Nocturnal hypoxemia 08/29/20 22 Overview: On oxygen at night PVC's (premature ventricular contractions) 06/16/2023 RBBB 06/16/2023 documented as of this encounter (statuses as of 02/20/2024) [facility] History of Present illness Narrative* Ginna Em, RN - 07/02/2023 8:02 AM EDT CDM Telephonic Outreach Provider Action/FYI 2nd TO attempt Left VM. CHF Appointments for Next 60 Days Date Time Provider Location Dept Phone 07/09/2023 1:30 PM [facility] [phone] 07/23/2023 10:00 AM [facility] DARON Thompson [facility] Ctr J [phone] 07/23/2023 10:40 AM IRAM JOHNSON [facility] Ctr J [phone] 07/23/2023 1:30 PM [facility] [place] [phone] 07/24/2023 10:20 AM JANAARABELLA [facility] [phone] 08/06/2023 11:45 AM [facility] [place] [phone] 08/06/2023 12:10 PM BALJINDER GALLOWAY [place] [phone] Contacted for: Routine Telephonic Outreach Contact made with patient: No, left message. Ginna Em RN July 02, 2023 2:35 PM documented in this encounterBrecksville Va / [facility]08-04-2023 Instructions* Patient Instructions* Ronaldo Pleitez MD - 06/12/2023 11:22 AM EDT See Hand written orders. documented in this encounterBrecksville Va / [facility]08-04-2023 History of Present illness Narrative* Ronaldo Pleitez MD - 06/12/2023 10:34 AM EDT This note was created using Placelyriter. Subjective Patient presents with: Establish Care: From Israel Pruitt DO. Srini Luis is a 87 year old male seen with his daughter and POA. He just moved to [facility] from [place]. He was having some vague discomfort on [...] and referral to lymphedema clinic were recommended. 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 ([facility]) 12/01/2022 CVA (cerebral vascular accident) ([facility]) 08/22/2022 Diverticulosis History of anemia Hx of CABG 07/22/2021 4 vessel CABG with ORNELAS-LAD, SVG-RI, SVG-OM, and SVG-RCA in [place] Hx of colonoscopy 09/27/2015 no reported polyps per patient recollection Hypertension Hypothyroidism 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 [...] Dr Matt Flannery. PAF (paroxysmal atrial fibrillation) ([facility]) 2020 Post CABG atrial fibrillation Primary localized [...] RIGHT OP SURGERY Right 12/18/2020 [facility] ARTHROPLASTY TOTAL SHOULDER 11/09/2008 right ARTHROSCOPY OF JOINT UNLISTED Elbow right CABG (4) VEIN GRAFTS & ARTERIAL GRAFT(S) 07/21/2021 In [facility] COLONOSCOPY FLX DX W/COLLJ SPEC WHEN [...] hematology oncology. 4. Coronary artery disease involving karluk coronary artery of [place] heart without angina pectoris- ICD9: 414.01, ICD10: I25.10 Stable. 5. 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 Follow up with hematology oncology. 6. History of bacteremia - ICD9: V12.09, ICD10: Z87.898 Resolved. Ronaldo Pleitez MD documented in this encounterBrecksville Va [facility]ille [facility]07-27-2023 History of Present illness Narrative* Ginna Em RN - 06/04/2023 8:22 AM EDT [facility] Telephonic Outreach Provider Vinnie/FYJason Spoke with patient who reports that he [...] and low salt intake. He lives in [facility] where he reports he receives meals, medication administration,and nursing assessment of BPs and wts. No transportation or food insecurity needs found from asking SDOH questions. His daughter has been assisting to ensure that he has transportation to app. CHF listed on PCP's 05/21/23 note. Appointments for Next 60 Days Date Time Provider Location Dept Phone 06/11/2023 1:30 PM [facility] [phone] 06/12/2023 10:00 AM RONALDO PLEITEZ [facility] [phone] 06/25/2023 1:30 PM LAB [facility] Card[facility] [phone] 07/09/2023 1:30 PM LAB [facility] Cardona [phone] 07/23/2023 10:00 AM [facility] [address] C[facility] J [phone] 07/23/2023 10:40 AM IRAM JOHNSON [facility] Ctr J [phone] 07/23/2023 1:30 PM LAB [facility] Cardona [phone] Contacted for: Routine Telephonic Outreach Contact made [...] a week? Nursing staff check Based on shearing machine feeder, the following disposition is advised: No symptoms or symptoms present, not severe. Routed to: No Action Needed MARCELO Education Provided this Outreach: No Ginna Em RN June 04, 2023 2:52 PM documented in this encounterBrecksville Va / [facility]07-21-2023 History of Present illness Narrative* Christa Gomez RT(R) - 05/29/2023 4:20 PM EDT Radiology [...] 29, 2023 4:14 PM documented in this encounterBrecksville Va / [facility]07-18-2023 Miscellaneous Notes* Telephone Encounter - Yadira Walsh LPN - 05/26/2023 3:51 PM EDT Received a fax from [employer] stating readmit orders with medication changes Medication list updated Yadira Walsh LPN documented in this encounterBrecksville Va / [facility]07-17-2023 Miscellaneous Notes* Telephone Encounter - Israel [...] advise. Erich Carrillo MA documented in this encounterBrecksville Va / [facility]07-17-2023 Miscellaneous Notes* Telephone Encounter - Regina Lazo LPN - 05/25/2023 8:04 AM EDT Images from the original note were not included. Shorty Faith MD You; [facility] General Surgery Pool 2 days ago Spoke with daughter, reviewed image daughter forwarded. Look like it is healing appropriately. * Telephone Encounter - Regina Lazo LPN - 05/22/2023 9:25 AM EDT Patients [...] there. Patient is currently getting infusion at [facility] and nurse is concerned for Dehiscence of surgical site and infection. Please advise and contact Liza at [phone]. Regina Lazo LPN documented in this encounterBrecksville Va / [facility]ille Hospital07-13-2023 Instructions* Patient Instructions* Israel Pruitt DO - 05/21/2023 12:31 PM EDT 1. Patient is advised to increase Lasix to 40 mg tablet taking 1-1/2 tablet for a total of 60 mg q.morning 2. Patient is advised within the next 2 weeks to recheck renal status and electrolytes with a BMP at [facility] #3 patient has follow-up with primary care that he be transitioning to at [facility] on June 12 #4 patient will continue close observation and management of hematological issues including 1 unit of packed red blood cell transfusion tomorrow with [facility] hematology with Dr. Galloway #5 no other changes in current medications including completing Levaquin as written by infectious disease upon discharge from [facility] 6. Please call with any significant change [...] with any open wounds documented in this encounterBrecksville Va / [facility]07-13-2023 History of Present illness Narrative* Israel Pruitt DO - 05/21/2023 11:52 AM EDT Patient presents with: Hospital F/U HPI: Srini Luis is a 87 year old male who presents to the office today for hospital follow-up with us. Patient was admitted to [facility] under the hospitalist service on May 24 was discharged on May 18 back to his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 need to know 10. Patient will be seen by ophthalmology for more detailed exam of the patient's visual field. 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 MRI of the brain August [...] - General (Internal Medicine) Laron Arreola (Orthopedics) Isreal Minor MD (Cardiology) Randa Rowell DO (Hematology/Oncology) Sanket Rob DO (Neurology) Ruby Duff RN as Specialty Business Development Coordinator (Hematology/Oncology) Ginna Em, JESSY as Administrative Law Judge (Unspecified) PAST MEDICAL HISTORY Diagnosis Date CAD [...] reported polyps per patient recollection Hypertension Hypothyroidism 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 [...] Dr Matt Flannery. PAF (paroxysmal atrial fibrillation) ([facility]) 2020 Post CABG atrial fibrillation PVC's (premature ventricular contractions) RBBB Status post ligation of left atrial appendage 07/2021 At time of CABG PAST SURGICAL HISTORY Procedure Laterality Date ANKLE RIGHT OP SURGERY Right 12/18/2020 Dr Arreola [facility] ARTHROPLASTY TOTAL SHOULDER 11/09/2008 right ARTHROSCOPY OF JOINT UNLISTED Elbow right CABG (4) VEIN GRAFTS & ARTERIAL GRAFT(S) 07/21/2021 In [facility] COLONOSCOPY FLX DX W/COLLJ SPEC WHEN [...] Appendage Osteoarthritis, Generalized Paf (Paroxysmal Atrial Fibrillation) ([facility]) Pvc's (Premature Ventricular Contractions) Benign Hypertension Rbbb Acute Stroke Due to Ischemia ([facility]) Vertebral Artery Occlusion, 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 Acute Ischemic Stroke ([facility]) Malnutrition of Moderate Degree ([facility]) Weakness 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 ([facility]) Nocturnal Hypoxemia Cva (Cerebral Vascular Accident) ([facility]) Chb (Complete Heart Block) ([facility]) Policy Advisor Current Use of Anticoagulant Mds (Myelodysplastic Syndrome) ([facility]) ALLERGIES Allergen Reactions Simvastatin Other: See Comments [...] Lymph 1.00 - 4.00 k/uL 0.82 (L) Ward% % 5.8 Abs Ward <0.87 k/uL 0.27 Eosin% % 0.9 Abs [...] which included preparing to see the patient, [id number] patient care, completing clinical documentation, obtaining and/or reviewing separately obtained history, performing a medically appropriate examination, counseling and educating the pat ient/family/caregiver, ordering medications, tests, or procedures, communicating with other HCPs (not separately reported), independently interpreting results (not separately reported), communicatingresults to the patient/family/caregiver, and care coordination (not separately reported). Israel Pruitt DO documented in this encounterBrecksville Va / [facility]06-08-2023 History of Present illness Narrative* Milagro [...] 2023 Milagro Camacho RN Research Nurse - [place] [phone] documented in this encounterBrecksville Va / [facility]06-06-2023 History of Present illness Narrative* Eveline [...] daily weight at home? No Based on shearing machine feeder, the following disposition is advised: No symptoms or symptoms present, not severe. Routed to: No Action Needed MARCELO Education Provided this Outreach: No Eveline Dean RN April 14, 2023 3:36 PM documented in this encounterBrecksville Va / [facility]06-06-2023 History of Present illness Narrative* Patricia Fairchild RN - 04/14/2023 10:18 AM EDT ++ documented in this encounterBrecksville Va / [facility]06-02-2023 Miscellaneous Notes* Telephone Encounter - Stephany [...] pill BID. Note: he is now at [facility]. [phone]. * Telephone Encounter - Iram Johnson APRN.MAURICIO [...] since about mid March. documented in this encounterBrecksville Va / [facility]06-02-2023 Miscellaneous Notes* Telephone Encounter - Stephany Abraham LPN - 04/10/2023 3:58 PM EDT Talked with daughter and explained everything. I am calling [facility] to give orders after speaking ot [...] it was reading okay documented in this encounterBrecksville Va / [facility]05-31-2023 Miscellaneous Notes* Telephone Encounter - Ileana [...] questions/concerns. Ileana Sosa RN documented in this encounterBrecksville Va / [facility]05-17-2023 Instructions* Patient Instructions* Israel Pruitt DO [...] not anticipate. #7 the vascular lab at [facility] is aware that I will be receiving a call regarding the patient's report and then the patient will be aware of his report or results today. In the event that there is any evidence of acute deep vein thrombosis will be coordinating care with the patient's hematology oncology research rn. documented in this encounterBrecksville Va / [facility]05-17-2023 History of Present illness Narrative* Israel Pruitt DO - 03/25/2023 12:10 PM EDT Patient presents with: ED Follow-up HPI: Srini Luis is a 87 year old male who presents to the office today for acute right dorsal foot concerns . 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 PAF (paroxysmal atrial fibrillation) ([facility]) 2020 Post CABG atrial fibrillation PVC's (premature ventricular contractions) RBBB Status post ligation of left atrial appendage 07/2021 At time of CABG PAST SURGICAL HISTORY Procedure Laterality Date ANKLE RIGHT OP SURGERY Right 12/18/2020 Dr Arreola [facility] ARTHROPLASTY TOTAL SHOULDER 11/09/2008 right ARTHROSCOPY OF JOINT UNLISTED Elbow right CABG (4) VEIN GRAFTS & ARTERIAL GRAFT(S) 07/21/2021 In [facility] COLONOSCOPY FLX DX W/COLLJ SPEC WHEN [...] Appendage Osteoarthritis, Generalized Paf (Paroxysmal Atrial Fibrillation) ([facility]) Pvc's (Premature Ventricular Contractions) Benign Hypertension Rbbb Acute Stroke Due to Ischemia ([facility]) Vertebral Artery Occlusion, 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 Acute Ischemic Stroke ([facility]) Malnutrition of Moderate Degree ([facility]) Weakness 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 ([facility]) Nocturnal Hypoxemia Myasthenia Gravis ([facility]) Cva (Cerebral Vascular Accident) ([facility]) Chb (Complete Heart Block) ([facility]) Fdc Current Use of Anticoagulant Mds (Myelodysplastic Syndrome) ([facility]) ALLERGIES Allergen Reactions Simvastatin Other: See Comments [...] Abs Lymph 1.00 - 4.00 k/uL 1.05 Ward% % 7.4 Abs Ward <0.87 k/uL 0.38 Eosin% % 2.1 Abs [...] which included preparing to see the patient, [id number] patient care, completing clinical documentation, obtaining and/or reviewing separately obtained history, performing a medically appropriate examination, counseling and educating the pat ient/family/caregiver, ordering medications, tests, or procedures, communicating with other HCPs (not separately reported), independently interpreting results (not separately reported), communicatingresults to the patient/family/caregiver, and care coordination (not separately reported). Israel Pruitt DO documented in this encounterBrecksville Va / [facility]05-15-2023 History of Present illness Narrative* Lupis Servin MA - 03/23/2023 12:50 PM EDT POPULATION HEALTH NAVIGATION OUTREACH Action/FYI March 23, 2023 12:51 PM Spoke with [...] this appointment? No Reason for Outreach [facility] Payer: Payor: [facility] MEDICARE / Plan: [facility] MEDICARE HMO / Product Type: HMO [...] seen in the Emergency Department (ED) Location: [facility] Date: 03/20/23 Reason for ED Visit: foot discolored, pain, swollen ED Intervention: not broken Based on shearing machine feeder, the following disposition is advised: No symptoms or symptoms present, not severe. 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 current use of ant icoagulants with INR [...] Follow-up examination following surgery 10/31/20 03 01/02/2015 [facility] current use of ant icoagulants with INR goal of 2.0-3.0 09/15/2022 Nocturnal hypoxemia 08/29/2022 Overview: On oxygen at night documented as of this encounter (statuses as of 03/23/2023) [facility]-12-[facility] History of Present illness Narrative* Jennifer Wilson APRN.PHOTO MASK PATTERN GENERATOR - 03/20/2023 1:58 PM EDT Virtualist Distance Health Note (CDM/TCM//CC HC/H@[facility] escalations) Srini Luis has consented to this telephone encounter. Persons Present: patient Triage source: Chronic Disease Management Contacted by phone, FaceTime, Google Duo, Zoom, Doximity, other: phone History [...] in as Primary Virtualist, Secondary Virtualist, or [facility] Telehealth provider: Primary SIGNATURE: Jennifer Wilson APRN.CNP PATIENT NAME: Srini Luis DATE: March 20, 2023 documented in this encounterBrecksville Va / [facility]05-12-2023 History of Present illness Narrative* Eveline Dean RN - 03/20/2023 12:12 PM EDT [facility] Telephonic Outreach Provider Action/FYI Reports his two toes are almost black [...] to talk about today? Yes Based on shearing machine feeder, the following disposition is advised: Sent to virtualist. Eveline Dean RN March 20, 2023 12:21 PM * Eveline Dean RN - 03/19/2023 2:42 PM EDT [facility] Telephonic Outreach Provider Action/FYI Contacted for: Routine Telephonic Outreach Contact made with patient: No, left message. 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 Lena Cruz RN * Telephone Encounter - Israel Pruitt DO - 03/18/2023 4:30 PM EDT Please provide the assisted living facility where the patient now resides near [place] or [place] with the information that is requested further records. I just recently had a comprehensive visit with the patient so that should be all up-to-date. Thanks , Israel Pruitt DO * Telephone Encounter - Marcie Key LPN - 03/18/2023 4:14 PM EDT Katelynn from [facility] states pt is wanting to move into their assisted living. 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 Junie Peralta Pss * Telephone Encounter - Baljinder Galloway DO [...] Rowell for CMML. Patient is moving from [facility] to [place] and would like to transfer care. Patient will continue current care until established here. 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 current use of ant icoagulants with INR [...] Follow-up examination following surgery 10/31/20 03 01/02/2015 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 current use of ant icoagulants with INR goal of 2.0-3.0 09/15/2022 Nocturnal hypoxemia 08/29/2022 Overview: On oxygen at night documented as of this encounter (statuses as of 03/17/2023) [facility] History of Past illness Narrative* Problem Noted Date Resolved Date [facility] current use of ant icoagulants with INR [...] Follow-up examination following surgery 10/31/20 03 01/02/2015 [facility] current use of ant icoagulants with INR goal of 2.0-3.0 09/15/2022 Nocturnal hypoxemia 08/29/2022 Overview: On oxygen at night documented as of this encounter (statuses as of 03/16/2023) [facility] History of Past illness Narrative* Problem Noted Date Resolved Date 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 The patients daughter is retiring to [place] near [place] , therefore the move to [place] works forthe patient at an #AL site [...] Minor MD (Cardiology) Eveline Dean RN as Administrative Law Judge Randa Rowell DO (Hematology/Oncology) Sanket Rob DO (Neurology) PAST MEDICAL HISTORY Diagnosis Date CAD (coronary artery disease) CHB (complete heart block) ([facility]) 09/17/2022 High Grade AV Block in setting of Chronic RBBB and now Bilateral BBB; Confirmed Blk below His by His Bundle Electrogram CVA (cerebral vascular accident) ([facility]) 08/22/2022 Diverticulosis History of anemia Hx of CABG 07/22/2021 4 vessel CABG with ORNELAS-LAD, SVG-RI, SVG-OM, and SVG-RCA in [place] Hx of colonoscopy 09/27/2015 no reported polyps per patient recollection Hypertension Hypothyroidism 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 Xarelto 20 mg [...] OP SURGERY Right 12/18/2020 Dr Elba [facility] ARTHROPLASTY TOTAL SHOULDER 11/09/2008 right ARTHROSCOPY OF JOINT UNLISTED Elbow right CABG (4) VEIN GRAFTS & ARTERIAL GRAFT(S) 07/21/2021 In [facility] COLONOSCOPY FLX DX W/COLLJ SPEC WHEN [...] Appendage Osteoarthritis, Generalized Paf (Paroxysmal Atrial Fibrillation) ([facility]) Pvc's (Premature Ventricular Contractions) Benign Hypertension Rbbb Acute Stroke Due to Ischemia ([facility]) Vertebral Artery Occlusion, 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 Acute Ischemic Stroke ([facility]) Malnutrition of Moderate Degree ([facility]) Weakness 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 ([facility]) Nocturnal Hypoxemia Myasthenia Gravis ([facility]) Cva (Cerebral Vascular Accident) ([facility]) Chb (Complete Heart Block) ([facility]) Policy Advisor Current Use of Anticoagulant ALLERGIES Allergen Reactions [...] Lymph 1.00 - 4.00 k/uL 0.49 (L) Ward% % 4.7 Abs Ward <0.87 k/uL 0.23 Eosin% % 0.0 Abs [...] not increasing ) Echocardiography Report: Transthoracic Echo [facility] Date of service: 09/16/2022 12:12:43 PM Ordering physician: ISRAEL PRUITT Indication: Shortness of Breath Technologist: Abran Joy [facility] Interpreting physician: Ling Thompson MD PATIENT: Name: MR. SRINI LUIS : [...] right atrial cavity is dilated. MITRAL VALVE Platinum mitral valve. There is mild (1+ - [...] deceleration time is 311 msec. TRICUSPID VALVE Platinum tricuspid valve. There is mild (1+ - [...] EST ASSESSMENT/PLAN: 1. PAF (paroxysmal atrial fibrillation) ([facility]) - ICD9: 427.31, ICD10: I48.0 (primary diagnosis) Stable HR and on Xarelto , staying on current therapy 2. MDS (myelodysplastic syndrome) ([facility]) - ICD9: 238.75, ICD10: D46.9 Stable , [...] grade II DHD , and BNPT > 79006 , will increase Lasix to total 60 [...] which included preparing to see the patient, [id number] patient care, completing clinical documentation, obtaining and/or reviewing separately obtained history, performing a medically appropriate examination, counseling and educating the pat ient/family/caregiver, ordering medications, tests, or procedures, communicating with other HCPs (not separately reported), independently interpreting results (not separately reported), communicatingresults to the patient/family/caregiver, and care coordination (not separately reported). 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 current use of ant icoagulants with INR [...] Follow-up examination following surgery 10/31/20 03 01/02/2015 [facility] current use of ant icoagulants with INR goal of 2.0-3.0 09/15/2022 Nocturnal hypoxemia 08/29/2022 Overview: On oxygen at night documented as of this encounter (statuses as of 03/13/2023) [facility] [facility]05-03-2023 History of Present illness Narrative* Randa Rowell, DO - 03/11/2023 10:53 AM EDT HEMATOLOGY/ONCOLOGY Follow up Srini Luis 1935 October 09, 2022 Referred by: SELF Diagnosis: CMML-1 Date of Diagnosis: 10/24/22 Current Treatment: Aza C1D1 12/15/22-present CC: follow up CMML HPI: Sirni Luis is a 86 year old male [...] (coronary artery disease) CHB (complete heart block) ([facility]) 09/17/2022 High Grade AV Block in setting of Chronic RBBB and now Bilateral BBB; Confirmed Blk below His by His Bundle Electrogram CVA (cerebral vascular accident) ([facility]) 08/22/2022 Diverticulosis History of anemia Hx of CABG 07/22/2021 4 vessel CABG with ORNELAS-LAD, SVG-RI, SVG-OM, and SVG-RCA in [place] Hx of colonoscopy 09/27/2015 no reported polyps per patient recollection Hypertension Hypothyroidism [facility] current use of anticoagulant Xarelto 20 mg [...] RIGHT OP SURGERY Right 12/18/2020 Dr Arreola [facility] ARTHROPLASTY TOTAL SHOULDER 11/09/2008 right ARTHROSCOPY OF JOINT UNLISTED Elbow right CABG (4) VEIN GRAFTS & ARTERIAL GRAFT(S) 07/21/2021 In [facility] COLONOSCOPY FLX DX W/COLLJ SPEC WHEN [...] tablet by mouth daily with dinner. Resume Nov 12 2022 90 tablet 3 metoprolol tartrate, short [...] (with VAFs): SF3B1 p.H662Q (41.7%) and TET2 p.B2011Kkj*6 (46%). 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 current use of ant icoagulants with INR goal of 2.0-3.0 09/15/2022 Nocturnal hypoxemia 08/29/2022 Overview: On oxygen at night documented as of this encounter (statuses as of 03/11/2023) [facility] History of Past illness Narrative* Problem Noted Date Resolved Date 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 current use of ant icoagulants with INR [...] Follow-up examination following surgery 10/31/20 03 01/02/2015 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 current use of ant icoagulants with INR goal of 2.0-3.0 09/15/2022 Nocturnal hypoxemia 08/29/2022 Overview: On oxygen at night documented as of this encounter (statuses as of 03/11/2023) [facility] History of Past illness Narrative* Problem Noted Date Resolved Date 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 current use of ant icoagulants with INR [...] Follow-up examination following surgery 10/31/20 03 01/02/2015 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 current use of ant icoagulants with INR goal of 2.0-3.0 09/15/2022 Nocturnal hypoxemia 08/29/2022 Overview: On oxygen at night documented as of this encounter (statuses as of 03/09/2023) [facility] History of Past illness Narrative* Problem Noted Date Resolved Date 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 current use of ant icoagulants with INR [...] Follow-up examination following surgery 10/31/20 03 01/02/2015 [facility] current use of ant icoagulants with INR goal of 2.0-3.0 09/15/2022 Nocturnal hypoxemia 08/29/2022 Overview: On oxygen at night documented as of this encounter (statuses as of 03/02/2023) [facility] History of Past illness Narrative* Problem Noted Date Resolved Date [facility] current use of ant icoagulants with INR [...] Follow-up examination following surgery 10/31/20 03 01/02/2015 [facility] current use of ant icoagulants with INR goal of 2.0-3.0 09/15/2022 Nocturnal hypoxemia 08/29/2022 Overview: On oxygen at night documented as of this encounter (statuses as of 02/17/2023) [facility] History of Past illness Narrative* Problem Noted Date Resolved Date [facility] current use of ant icoagulants with INR [...] 08/11/2005 01/02/2015 Follow-up examination following surgery 10/31/2001/02/2015 [facility] current use of ant icoagulants with INR goal of 2.0-3.0 09/15/2022 Nocturnal hypoxemia 08/29/2022 Overview: On oxygen at night documented as of this encounter (statuses as of 02/16/2023) [facility] History of Past illness Narrative* Problem Noted Date Resolved Date 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 current use of ant icoagulants with INR [...] Follow-up examination following surgery 10/31/20 03 01/02/2015 [facility] current use of ant icoagulants with INR goal of 2.0-3.0 09/15/2022 Nocturnal hypoxemia 08/29/2022 Overview: On oxygen at night documented as of this encounter (statuses as of 02/13/2023) [facility] History of Past illness Narrative* Problem Noted Date Resolved Date [facility] current use of ant icoagulants with INR [...] Follow-up examination following surgery 10/31/20 03 01/02/2015 [facility] current use of ant icoagulants with INR goal of 2.0-3.0 09/15/2022 Nocturnal hypoxemia 08/29/2022 Overview: On oxygen at night documented as of this encounter (statuses as of 02/12/2023) [facility] History of Past illness Narrative* Problem Noted Date Resolved Date 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 current use of ant icoagulants with INR [...] Follow-up examination following surgery 10/31/20 03 01/02/2015 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 current use of ant icoagulants with INR goal of 2.0-3.0 09/15/2022 Nocturnal hypoxemia 08/29/2022 Overview: On oxygen at night documented as of this encounter (statuses as of 02/11/2023) [facility] History of Past illness Narrative* Problem Noted Date Resolved Date 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 current use of ant icoagulants with INR [...] Follow-up examination following surgery 10/31/20 03 01/02/2015 [facility] current use of ant icoagulants with INR goal of 2.0-3.0 09/15/2022 Nocturnal hypoxemia 08/29/2022 Overview: On oxygen at night documented as of this encounter (statuses as of 02/10/2023) [facility] History of Past illness Narrative* Problem Noted Date Resolved Date 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 current use of ant icoagulants with INR [...] 08/11/2005 01/02/2015 Follow-up examination following surgery 10/31/2001/02/2015 [facility] current use of ant icoagulants with INR goal of 2.0-3.0 09/15/2022 Nocturnal hypoxemia 08/29/2022 Overview: On oxygen at night documented as of this encounter (statuses as of 02/09/2023) [facility] [facility]03-29-2023 History of Present illness Narrative* Randa Rowell [...] (coronary artery disease) CHB (complete heart block) ([facility]) 09/17/2022 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 [...] Dr Matt Flannery. PAF (paroxysmal atrial fibrillation) ([facility]) 2020 Post CABG atrial fibrillation PVC's (premature ventricular contractions) RBBB Status post ligation of left atrial appendage 07/2021 At time of CABG PAST SURGICAL HISTORY Procedure Laterality Date ANKLE RIGHT OP SURGERY Right 12/18/2020 Dr Arreola [facility] ARTHROPLASTY TOTAL SHOULDER 11/09/2008 right ARTHROSCOPY OF JOINT UNLISTED Elbow right CABG (4) VEIN GRAFTS & ARTERIAL GRAFT(S) 07/21/2021 In [facility] COLONOSCOPY FLX DX W/COLLJ SPEC WHEN [...] (with VAFs): SF3B1 p.H662Q (41.7%) and TET2 p.[id number]*6 (46%). 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 current use of ant icoagulants with INR goal of 2.0-3.0 09/15/2022 Nocturnal hypoxemia 08/29/2022 Overview: On oxygen at night documented as of this encounter (statuses as of 02/04/2023) [facility] History of Present illness Narrative* Israel Pruitt, DO - 02/02/2023 3:46 PM EDT Again a message that is confusing to patient and myself as to the reason for the message Please let me know who is generating calls out to our patients and why The patient is closely monitored and closely watched by [facility] physicians that are multidisciplinary Seems that there [...] this time. He has signed up with [facility]. He feels they will [...] like to speak with a social work food court team member to help give you support [...] you up for automated weekly questionnaires through [employer]. This is an easy way for us [...] RN - 01/30/2023 4:22 PM EDT INSIGHT CD TELEPHONIC OUTREACH Provider Action/FYI: Contact made with patient: No - Left message Aylin my name is Eveline Dean RN your Business Development Coordinator from the [facility] I am calling today for your bi-weekly check in. I am sorry I missed your call. I will reach out to you again tomorrow. (if the third call I will reach out to you again next week) Enter next patient outreach date for the following day using the Track Pt Outreach. End outreach. 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 current use of ant icoagulants with INR goal of 2.0-3.0 09/15/2022 Nocturnal hypoxemia 08/29/2022 Overview: On oxygen at night documented as of this encounter (statuses as of 02/02/2023) [facility] History of Past illness Narrative* Problem Noted Date Resolved Date [facility] current use of ant icoagulants with INR [...] Follow-up examination following surgery 10/31/20 03 01/02/2015 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 current use of ant icoagulants with INR goal of 2.0-3.0 09/15/2022 Nocturnal hypoxemia 08/29/2022 Overview: On oxygen at night documented as of this encounter (statuses as of 01/25/2023) [facility] History of Past illness Narrative* Problem Noted Date Resolved Date [facility] current use of ant icoagulants with INR [...] 08/11/2005 01/02/2015 Follow-up examination following surgery 10/31/2001/02/2015 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 current use of ant icoagulants with INR goal of 2.0-3.0 09/15/2022 Nocturnal hypoxemia 08/29/2022 Overview: On oxygen at night documented as of this encounter (statuses as of 01/19/2023) [facility] History of Past illness Narrative* Problem Noted Date Resolved Date 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 current use of ant icoagulants with INR [...] Follow-up examination following surgery 10/31/20 03 01/02/2015 [facility] current use of ant icoagulants with INR goal of 2.0-3.0 09/15/2022 Nocturnal hypoxemia 08/29/2022 Overview: On oxygen at night documented as of this encounter (statuses as of 01/16/2023) [facility] History of Past illness Narrative* Problem Noted Date Resolved Date 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 current use of ant icoagulants with INR [...] Follow-up examination following surgery 10/31/20 03 01/02/2015 [facility] current use of ant icoagulants with INR goal of 2.0-3.0 09/15/2022 Nocturnal hypoxemia 08/29/2022 Overview: On oxygen at night documented as of this encounter (statuses as of 01/15/2023) [facility]03-[facility] [facility]03-08-2023 History of Present illness Narrative* Randa Rowell, - 01/14/2023 9:02 AM EST HEMATOLOGY/ONCOLOGY Follow [...] reported polyps per patient recollection Hypertension Hypothyroidism [facility] current use of anticoagulant Xarelto 20 mg [...] RIGHT OP SURGERY Right 12/18/2020 Dr Ar[facility] ARTHROPLASTY TOTAL SHOULDER 11/09/2008 right ARTHROSCOPY OF JOINT UNLISTED Elbow right CABG (4) VEIN GRAFTS & ARTERIAL GRAFT(S) 07/21/2021 In [facility] COLONOSCOPY FLX DX W/COLLJ SPEC WHEN [...] Monocytes % 01/12/2023 8.0 % Final Abs Ward 01/12/2023 0.14 <0.87 k/uL Final Eosinophils % [...] 01/08/2023 Component Date Value Ref Range Status Merchandise Deliverer 01/08/2023 In process Value:Provider EDMOND your patient SRINI LUIS has been assigned their Marcelo program. The date to complete this order is 02-07-2023 The Marcelo program is: HEART FAILURE: WHAT IT IS The patient access code to view the Marcelo program is: [id number] To view the Marcelo program go to: [email or web address] Radiology: Pathology: Addendum Cytogenetics (see separate report) revealed a normal male karyotype: 46,XY[20]. The myeloid NGS panel (see separate report) identified the following variants (with VAFs): SF3B1 p.H662Q (41.7%) and TET2 p.[id number]*6 (46%). The overall findings are consistent with [...] to 8% (140). 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 current use of ant icoagulants with INR [...] Follow-up examination following surgery 10/31/20 03 01/02/2015 [facility] current use of ant icoagulants with INR goal of 2.0-3.0 09/15/2022 Nocturnal hypoxemia 08/29/2022 Overview: On oxygen at night documented as of this encounter (statuses as of 01/14/2023) [facility] History of Past illness Narrative* Problem Noted Date Resolved Date [facility] current use of ant icoagulants with INR [...] 08/11/2005 01/02/2015 Follow-up examination following surgery 10/31/2001/02/2015 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 current use of ant icoagulants with INR goal of 2.0-3.0 09/15/2022 Nocturnal hypoxemia 08/29/2022 Overview: On oxygen at night documented as of this encounter (statuses as of 01/15/2023) [facility] History of Present illness Narrative* Iram Johnson, MARTIN.PHOTO MASK PATTERN GENERATOR - 01/13/2023 11:00 AM EST [facility] CARDIOLOGY Israel Pruitt DO SUBJECTIVE: Srini Luis is a 87 year [...] (coronary artery disease) CHB (complete heart block) ([facility]) 09/17/2022 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 [...] Dr Matt Flannery. PAF (paroxysmal atrial fibrillation) ([facility]) 2020 Post CABG atrial fibrillation PVC's (premature ventricular contractions) RBBB Status post ligation of left atrial appendage 07/2021 At time of CABG PAST SURGICAL HISTORY Procedure Laterality Date ANKLE RIGHT OP SURGERY Right 12/18/2020 Dr [facility] ARTHROPLASTY TOTAL SHOULDER 11/09/2008 right ARTHROSCOPY OF JOINT UNLISTED Elbow right CABG (4) VEIN GRAFTS & ARTERIAL GRAFT(S) 07/21/2021 In [facility] COLONOSCOPY FLX DX W/COLLJ SPEC WHEN [...] current medications. 2. Coronary artery disease involving [place] coronary artery of [place] heart without angina pectoris- ICD9: 414.01, ICD10: I25.10 Four-vessel CABG in 2020. Patient on chronic medication. He is not complaining of chest pain. 3. Mixed hyperlipidemia - ICD9: 272.2, ICD10: E78.2 Patient is on atorvastatin 40 mg daily. Managed by primary care physician. 4. PAF (paroxysmal atrial fibrillation) ([facility]) - ICD9: 427.31, ICD10: I48.0 History of paroxysmal atrial fibrillation. Presently on metoprolol 12.5 mg twice daily. Maintainingsinus rhythm by pacemaker interrogation. We will plan to continue same medications and monitor for recurrent atrial fibrillation. 5. 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s Patient is on [...] as needed. 7. CHB (complete heart block) ([facility]) - ICD9: 426.0, ICD10: I44.2 Chronic, the [...] does not get any better. Iram Johnson APRN.PHOTO MASK PATTERN GENERATOR documented in this encounterBrecksville [facility]03-07-[facility] History of Present illness Narrative* Israel Minor MD - 01/13/2023 10:38 AM EST Dual Pacer Report In Office Check Date: January 13, 2023 Time: 10:38 AM Devices: Lead Ra Lead Biotronik-09/17/2022 - Implanted Heart Model/Cat number: ADAIR S [id number] Serial number: [id number] 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 Media Lot number: LEFT AXILLARY VEIN Size: Right Atrial Pacing Lead Rv Lead Biotronik-09/17/2022 - Implanted Heart Model/Cat number: ADAIR S [id number] Serial number: [id number] 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 Media Lot number: LEFT CEPHALIC VEIN Size: Right Ventricular Pacing Lead Pacemaker Dual Pacer Biotronik-09/17/2022 - Implanted (Left) Chest Wall Model/Cat number: EDORA [id number]-T [id number] Serial number: [id number] 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 Media Lot number: INITIAL DUAL PACER IMPLANT. Size: [...] 160 Additional Device Information -VS percent: 13% -OLIVE PACKER percent: 83% AP-VS percent: 0% AP-OLIVE PACKER percent: 3% Atrial: Threshold: 0.6 V @ [...] and provider appointment. View External Cardiology - General Operations Manager Strips [ID [id number]] documented in this encounterBrecksville [facility]03[facility] History of Past illness Narrative* Problem Noted Date Resolved Date [facility] current use of ant icoagulants with INR [...] Follow-up examination following surgery 10/31/20 03 01/02/2015 [facility] current use of ant icoagulants with INR goal of 2.0-3.0 09/15/2022 Nocturnal hypoxemia 08/29/2022 Overview: On oxygen at night documented as of this encounter (statuses as of 01/13/2023) [facility] History of Past illness Narrative* Problem Noted Date Resolved Date 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 current use of ant icoagulants with INR [...] Follow-up examination following surgery 10/31/20 03 01/02/2015 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 current use of ant icoagulants with INR goal of 2.0-3.0 09/15/2022 Nocturnal hypoxemia 08/29/2022 Overview: On oxygen at night documented as of this encounter (statuses as of 01/13/2023) [facility] History of Past illness Narrative* Problem Noted Date Resolved Date 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 States I feel fine Contact Made with Patient: Yes Patient identified by name and . Discussed care with patient Aylin stoddard name is Eveline Dean RN your Business Development Coordinator from Israel Pruitt DO office at the [facility]. I am reaching out today because [...] or looking for improvements and keeping Israel Pettymonia, DO informed about it all. 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 current use of ant icoagulants with INR goal of 2.0-3.0 09/15/2022 Nocturnal hypoxemia 08/29/2022 Overview: On oxygen at night documented as of this encounter (statuses as of 01/08/2023) [facility]-2023 History of Past illness Narrative* Problem Noted Date Resolved Date [facility] current use of ant icoagulants with INR [...] 08/11/2005 01/02/2015 Follow-up examination following surgery 10/31/2001/02/2015 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 [...] Follow-up examination following surgery 10/31/20 03 01/02/2015 [facility] current use of ant icoagulants with INR goal of 2.0-3.0 09/15/2022 Nocturnal hypoxemia 08/29/2022 Overview: On oxygen at night documented as of this encounter (statuses as of 04/10/2023) [facility] History of Past illness Narrative* Problem Noted Date Resolved Date Myasthenia gravis 01/05/2023 03/25/2023 Overview: Last seen by neurology July 29, 2017. 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 2017 when he's been off medication [facility] current use of ant icoagulants with INR [...] Follow-up examination following surgery 10/31/20 03 01/02/2015 [facility] current use of ant icoagulants with INR goal of 2.0-3.0 09/15/2022 Nocturnal hypoxemia 08/29/2022 Overview: On oxygen at night documented as of this encounter (statuses as of 04/10/2023) [facility] History of Past illness Narrative* Problem Noted Date Resolved Date Myasthenia gravis 01/05/2023 03/25/2023 Overview: Last seen by neurology July 29, 2017. 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 2017 when he's been off medication [facility] current use of ant icoagulants with INR [...] Follow-up examination following surgery 10/31/20 03 01/02/2015 [facility] current use of ant icoagulants with INR goal of 2.0-3.0 09/15/2022 Nocturnal hypoxemia 08/29/2022 Overview: On oxygen at night documented as of this encounter (statuses as of 04/15/2023) [facility] History of Past illness Narrative* Problem Noted Date Resolved Date Myasthenia gravis 01/05/2023 03/25/2023 Overview: Last seen by neurology July 29, 2017. 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 2017 when he's been off medication [facility] current use of ant icoagulants with INR [...] Follow-up examination following surgery 10/31/20 03 01/02/2015 [facility] current use of ant icoagulants with INR goal of 2.0-3.0 09/15/2022 Nocturnal hypoxemia 08/29/2022 Overview: On oxygen at night documented as of this encounter (statuses as of 05/06/2023) [facility] History of Past illness Narrative* Problem Noted Date Resolved Date Myasthenia gravis 01/05/2023 03/25/2023 Overview: Last seen by neurology July 29, 2017. 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 2017 when he's been off medication [facility] current use of ant icoagulants with INR [...] Follow-up examination following surgery 10/31/20 03 01/02/2015 [facility] current use of ant icoagulants with INR goal of 2.0-3.0 09/15/2022 Nocturnal hypoxemia 08/29/2022 Overview: On oxygen at night documented as of this encounter (statuses as of 05/12/2023) [facility] History of Past illness Narrative* Problem Noted Date Resolved Date Myasthenia gravis 01/05/2023 03/25/2023 Overview: Last seen by neurology July 29, 2017. 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 2017 when he's been off medication [facility] current use of ant icoagulants with INR [...] 01/02/2015 Follow-up examination following surgery 10/31/2003 01/02/2015 [facility] current use of ant icoagulants with INR goal of 2.0-3.0 09/15/2022 Nocturnal hypoxemia 08/29/20 22 Overview: On oxygen at night documented as of this encounter (statuses as of 05/27/2023) [facility] History of Past illness Narrative* Problem Noted Date Diagnosed Date Resolved Date Myasthenia gravis 01/05/2023 03/25/2023 Overview: Last seen by neurology July 29, 2017. 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 2017 when he's been off medication [facility] current use of ant icoagulants with INR [...] 01/02/2015 Follow-up examination following surgery 10/31/2003 01/02/2015 [facility] current use of ant icoagulants with INR goal of 2.0-3.0 09/15/2022 Nocturnal hypoxemia 08/29/20 Overview: On oxygen at night documented as of this encounter (statuses as of 06/04/2023) [facility] History of Past illness Narrative* Problem Noted Date Diagnosed Date Resolved Date Nocturnal hypoxemia 01/05/2023 06/12/20 Overview: On oxygen at night Myasthenia gravis 01/05/2023 03/25/2023 Overview: Last seen by neurology July 29, 2017. 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 The patient is thymoma negative seronegative for antibodies positive. 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 The patient is thymoma negative seronegative for antibodies positive. 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 The patient is thymoma negative seronegative for antibodies positive. 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 The patient is thymoma negative seronegative for antibodies positive. 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 The patient is thymoma negative seronegative for antibodies positive. 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 The patient is thymoma negative seronegative for antibodies positive. 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 The patient is thymoma negative seronegative for antibodies positive. 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 The patient is thymoma negative seronegative for antibodies positive. 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 The patient is thymoma negative seronegative for antibodies positive. 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 The patient is thymoma negative seronegative for antibodies positive. 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 The patient is thymoma negative seronegative for antibodies positive. 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 [...] , severe LCS L2-3 Osteoarthritis, generalized 06/16/2023 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 current use of ant icoagulants with INR goal of 2.0-3.0 09/15/2022 Nocturnal hypoxemia 08/29/20 22 Overview: On oxygen at night PVC's (premature ventricular contractions) 06/16/2023 RBBB 06/16/2023 documented as of this encounter (statuses as of 10/07/2023) [facility] History of Past illness Narrative* Problem Noted Date Diagnosed Date Resolved Date Nocturnal hypoxemia 01/05/2023 06/12/20 23 Overview: On oxygen at night Myasthenia gravis 01/05/2023 03/25/2023 Overview: Last seen by neurology July 29, 2017. The patient is thymoma negative seronegative for antibodies positive. 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; Confirmed Blk below His by His Bundle Electrogram Symptomatic bradycardia 09/15/2022 11/ Acute ischemic stroke 08/26/20222022 Vertebral artery occlusion, [...] , severe LCS L2-3 Osteoarthritis, generalized 06/16/2023 [facility] current use of ant icoagulants with INR goal of 2.0-3.0 09/15/2022 Nocturnal hypoxemia 08/29/20 22 Overview: On oxygen at night PVC's (premature ventricular contractions) 06/16/2023 RBBB 06/16/2023 documented as of this encounter (statuses as of 12/18/2023) [facility] History of Past illness Narrative* Problem Noted Date Diagnosed Date Resolved Date Nocturnal hypoxemia 01/05/2023 06/12/20 23 Overview: On oxygen at night Myasthenia gravis 01/05/2023 03/25/2023 Overview: Last seen by neurology July 29, 2017. The patient is thymoma negative seronegative for antibodies positive. 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 The patient is thymoma negative seronegative for antibodies positive. 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 The patient is thymoma negative seronegative for antibodies positive. Asymptomatic since July 2017 when he's been off medication [facility] current use of ant icoagulants with INR [...] , severe LCS L2-3 Osteoarthritis, generalized 06/16/2023 [facility] current use of ant icoagulants with INR goal of 2.0-3.0 09/15/2022 Nocturnal hypoxemia 08/29/20 22 Overview: On oxygen at night PVC's (premature ventricular contractions) 06/16/2023 RBBB 06/16/2023 documented as of this encounter (statuses as of 12/23/2023) [facility] History of Past illness Narrative* Problem Noted Date Diagnosed Date Resolved Date Nocturnal hypoxemia 01/05/2023 06/12/20 23 Overview: On oxygen at night Myasthenia gravis 01/05/2023 03/25/2023 Overview: Last seen by neurology July 29, 2017. The patient is thymoma negative seronegative for antibodies positive. 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 [...] , severe LCS L2-3 Osteoarthritis, generalized 06/16/2023 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 current use of ant icoagulants with INR goal of 2.0-3.0 09/15/2022 Nocturnal hypoxemia 08/29/20 22 Overview: On oxygen at night PVC's (premature ventricular contractions) 06/16/2023 RBBB 06/16/2023 documented as of this encounter (statuses as of 12/24/2023) [facility] History of Past illness Narrative* Problem Noted Date Diagnosed Date Resolved Date Nocturnal hypoxemia 01/05/2023 06/12/20 23 Overview: On oxygen at night Myasthenia gravis 01/05/2023 03/25/2023 Overview: Last seen by neurology July 29, 2017. The patient is thymoma negative seronegative for antibodies positive. 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 The patient is thymoma negative seronegative for antibodies positive. 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 [...] , severe LCS L2-3 Osteoarthritis, generalized 06/16/2023 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 current use of ant icoagulants with INR goal of 2.0-3.0 09/15/2022 Nocturnal hypoxemia 08/29/20 Overview: On oxygen at night PVC's (premature ventricular contractions) 06/16/2023 RBBB 06/16/2023 documented as of this encounter (statuses as of 01/01/2024) [facility] Miscellaneous Notes* Telephone Encounter - Lena [...] Pruitt DO * Telephone Encounter - Renuka Butts Registrar - 12/15/2022 10:30 AM EST Summary: No assistance open Currently no foundation open for patients diagnosis and can't use copay cards b/c pt has Medicare. I will add patient to list if something does open. * Telephone Encounter - KAITLYNN Staples - 12/15/2022 10:01 AM EST Name: Srini Luis : 1935 [place] ID: [id number] Diagnosis: CML Primary Insurance Provider: [facility] Med Adv Plan Insurance Phone #: [phone] Policy #: [id number] Effective Date of Coverage: 11-09-22 Deductible: Ind: $ 0 Met: Ind: $ 0 Max OOP: Ind: $ 3500 OOP Met: Ind: $ 75 Pays: After Ded: 80% Pays: After OOP: 100 Co-Insurance: 20% Lifetime Maximum: unlimited Possible Foundations: Benefits verified with Radha A. Ref# [id number]. Patient has 20% coinsurance and $3425 remaining in max OOPif any assistance available. KAITLYNN Staples documented in this encounterB[facility] NoteHNO ID: [id number] Author: Roxy Sanchez RN Service: ? Author Type: Registered Nurse Type: Progress Notes Filed: 12/15/2022 10:49 AM Note Text: Ok to keep port accessed for vidaza treatment per Dr Rowell.[facility]02-06-2023 History of Present illness Narrative* Roxy Sanchez RN - 12/15/2022 10:37 AM EST Ok to keep port accessed for vidaza treatment per Dr Rowell. documented in this encounterB[facility] Instructions* Patient Instructions* Israel Pruitt, - [...] during his next encounter. documented in this encounterB[facility] History of Present illness Narrative* Israel Pruitt DO - 12/11/2022 4:54 PM EST Patient presents with: Recheck: 3 months F/U HPI: Srini Luis is a 86 year old male who presents to the office today for routine OV with us today The patient is engaged to be to a lady that he is known for 3 years and lives in [place] at [place] as well. 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; Confirmed Blk below His by His Bundle Electrogram CVA (cerebral vascular accident) ([facility]) 08/22/2022 Diverticulosis History of anemia Hx of CABG 07/22/2021 4 vessel CABG with ORNELAS-LAD, SVG-RI, SVG-OM, and SVG-RCA in [place] Hx of colonoscopy 09/27/2015 no reported polyps per patient recollection Hypertension Hypothyroidism 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s with INR goal of 2.0-3.0 Lumbar stenosis MRI 2018 , severe LCS L2-3 Mixed hyperlipidemia Myasthenia gravis ([facility]) Last seen by neurology July 29, 2017. 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 Acute Ischemic Stroke ([facility]) Malnutrition of Moderate Degree ([facility]) Weakness Generalized Pacemaker Chronic heart failure with preserved ejection fraction ([facility]) [I50.32 (ICD-10-CM)] 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 ([facility]) ALLERGIES Allergen Reactions Simvastatin Other: See Comments [...] Lymph 1.00 - 4.00 k/uL 1.08 1.35 Ward% % 15.3 12.8 Abs Ward <0.87 k/uL 1.06 (H) 0.96 (H) Eosin% [...] 1.00 - 4.00 k/uL 1.18 1.08 1.35 Ward% % 11.6 15.3 12.8 Abs Ward <0.87 k/uL 0.80 1.06 (H) 0.96 (H) [...] which included preparing to see the patient, [id number] patient care, completing clinical documentation, obtaining and/or reviewing separately obtained history, performing a medically appropriate examination, counseling and educating the pat ient/family/caregiver, ordering medications, tests, or procedures, communicating with other HCPs (not separately reported), independently interpreting results (not separately reported), communicatingresults to the patient/family/caregiver, and care coordination (not separately reported). .Israel Pruitt DO documented in this encounterBrec[facility]ville [facility] Miscellaneous Notes* Sedation Documentation - Juanita Tineo RN - 12/05/2022 10:40 AM EST R IJ not useable per Dr. Butler. Pt agreeable to right arm. * Sedation Documentation - Juanita Tineo RN - 12/05/2022 10:28 AM EST Port instructions reviewed with patient. Written copy provided. Pt's questions answered. documented in this encounterBrecksville [facility] Surgical operation note* Operative Report - Manjeet Butler MD - 12/05/2022 10:04 AM EST OPERATIVE/PROCEDURE REPORT LOG ID: [id number] Surgery/Procedure Date: 12/05/2022 Incision/Procedure Start Time: 10:35 AM Incision Close/Procedure End Time: 11:00 AM Surgeon(s)/Proceduralist(s) and Director Of Counseling(s): Surgeon(s) and Role: * Manjeet Butler MD [...] None Manjeet Butler MD documented in this encounterBrecksville [facility]01-26-[facility]23 NoteHNO ID: [id number] Author: KAITLYNN Staples Service: ? Author Type: Learning And Development Coordinator Type: Progress Notes Filed: 12/04/2022 3:35 PM Note Text: Also submitted referral for [facility] meals to be delivered to his home.[facility] History of Present illness Narrative* KAITLYNN Staples - 12/04/2022 3:34 PM EST Also submitted referral for [employer] meals to be delivered to his home. documented in this encounterBrecksville [facility]01-26-2023 History of Present illness Narrative* KAITLYNN Staples - 12/04/2022 3:28 PM EST Images from the original note were not included. RE: Evaluation Learning And Development Coordinator KAITLYNN Staples Resource Counselor (RC) met with new patient to review the Patient Navigation process. RC advised patient their role as the food court team member assisting patients in navigating the [...] detail. RC reviewed the role of the Road Gang Supervisor and the attempts she would make to [...] No Finances No Insurance No Transporation No care technician No Having enough food No Access to medicine No Treatment decisions No Spiritual or Presybeterian Concerns No Sense of meaning or purpose No Changes in efrain or beliefs No , dying or afterlife No Conflict between beliefs and cancer treaments No Relationhip with the sacred No Ritual or dietary needs No Other Concerns none KAITLYNN Staples documented in this encounterBrecksville [facility]01-26-[address] [facility]01-26-2023 History of Present illness Narrative* Skye Mas APRN.CNP - 12/04/2022 12:37 PM EST Chemotherapy Education Dx: CMML This visit was spend discussing the side effects of Vidaza. Side effects were discussed with the patient extensively. Handouts from [email or web address] given for Vidaza. General risks from chemotherapy [...] especially fever. Handouts given and explained from [facility] including all of support services offered. Patient met with social work at visit. Time spent: 50 minutes >50% of the time was spent in counseling and/or coordination of care. Skye Mas APRN.CNP documented in this encounterBrecksville [facility]01-18-[address] [facility]01-18-2023 Miscellaneous Notes* Telephone Encounter - Valentina Bethea - 11/26/2022 11:50 AM EST Patient left the 11/26/22 appointment and said that they will let us know if they want to do treatment or reschedule. documented in this encounterBrecksville [facility]01-18-2023 Instructions* Patient Instructions* Randa Rowell, - [...] in the blood No evidence of a Sabattus chromosome. This is seen in a similar [...] (CMML) or works in consultation with a art coordinator oncologist who has experience treating CMML patients. [...] when you get home. 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 [...] Dr Matt Flannery. PAF (paroxysmal atrial fibrillation) ([facility]) 2020 Post CABG atrial fibrillation PVC's (premature ventricular contractions) RBBB Status post ligation of left atrial appendage 07/2021 At time of CABG PAST SURGICAL HISTORY Procedure Laterality Date ANKLE RIGHT OP SURGERY Right 12/18/2020 Dr Arreola [facility] ARTHROPLASTY TOTAL SHOULDER 11/09/2008 right ARTHROSCOPY OF JOINT UNLISTED Elbow right CABG (4) VEIN GRAFTS & ARTERIAL GRAFT(S) 07/21/2021 In [facility] COLONOSCOPY FLX DX W/COLLJ SPEC WHEN [...] 11/05/2022 1.08 1.00 - 4.00 k/uL Final Ward% 11/05/2022 15.3 % Final Abs Ward 11/05/2022 1.06 (A) <0.87 k/uL Final Eosin% [...] (with VAFs): SF3B1 p.H662Q (41.7%) and TET2 p.[id number]*6 (46%). The overall findings are consistent with [...] about his options Randa Rowell DO Hematology/Oncology [facility] During this patient visit I have spent approximately 40 minutes out of 45 in counseling regarding treatment options, medications, and test results and coordinating care. documented in this encounterBrecksville Va [facility]01-12-2023 Miscellaneous Notes* Telephone Encounter - Yadira Walsh LPN - 11/20/2022 1:52 PM EST Patient phones requesting refills as follows: Pt is requesting that the rx be sent to [facility] (originally given to [facility] pharmacy becauseit was hospital generated) Requested Prescriptions Pending Prescriptions Disp Refills rivaroxaban (XARELTO) 20 mg tablet 90 tablet 3 Sig: Take 1 tablet by mouth daily with dinner. Resume Sep 20 2022 Please review and advise. Yadira Walsh LPN documented in this encounterBrecksville Va [facility]12-29-2022 Miscellaneous Notes* Telephone Encounter - Christa Paris RN - 11/06/2022 9:17 AM EST Patient called the [facility] with question on sodium in water softener. Call returned, message left. Research states that approximately 35 mg is in an 8 ounce glass. 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s with INR goal [...] RIGHT OP SURGERY Right 12/18/2020 Dr Arreola [facility] ARTHROPLASTY TOTAL SHOULDER 11/09/2008 right ARTHROSCOPY OF JOINT UNLISTED Elbow right CABG (4) VEIN GRAFTS & ARTERIAL GRAFT(S) 07/21/2021 In [facility] COLONOSCOPY FLX DX W/COLLJ SPEC WHEN [...] 10/24/2022 Final Value:Bone Marrow Pathology Report Case: [id number] Authorizing Provider: Randa Rowell DO Collected: 10/24/2022 12:31 PM Ordering Location: [facility] Received: 10/24/2022 02:31 PM INTERVENTIONAL RADIOLOGY [...] To order testing on this specimen for [facility] patients, please place an [facility] order for DNAand RNA Clinical Testing ([id number]). To order testing for patients outside of the [facility] system, please request DNA and RNA for Clinical Testing, order code [id number]. If additional paperwork is required for testing, please send completed forms via secure email to . Flow Cytometry Order Status 10/24/2022 See Results in chart under F case ID Final MYELOID NGS PANEL BONE MARROW 10/24/2022 Myeloid NGS Panel Bone Marrow Laboratory Accession Number: [id number] Result: Please see linked document and/or separate report for full result when available. As reviewed by Laron Jeong MD Final FLT3 ITD HN PANEL BONE MARROW 10/24/2022 Final Value:FLT3 Internal Tandem Duplication (ITD) Mutation Testing Laboratory Accession Number: [id number] FLT3 Internal Tandem Duplication (ITD) mutation: Not [...] assess prognosis within myeloid neoplasms. References: 1) Myleselli MP, Tooti P, Tiacci E, et al. Mutational landscape of AML with normal cytogenetics: biological and clinical implications. Blood Rev.2013;27:13-22. 2) Alphonse GONZALEZ, Neema M, Arthur ME, et al. Prognostic relevance of integrated genetic profiling in acute myeloid leukemia. N Engl J Med. 2011Jan 28;366 (12):1079-89. 3) Carly Rodriguezy E, Davy Nuñez, et al. Diagnosis and mangement of AML in adults: 2017 ELN recommendations from an international expert panel. Blood 129,[phone] (2017). Disclaimer: This test was developed and its performance characteristics determined by [facility]'s [facility] Pathology and Laboratory Medicine [place] ([facility]). It has not been cleared or approved by the FDA. [facility] is regulated under CLIA as certified to perform high- complexity testing. This test is used for clinical purposes. It should not be regarded as investigational or for research. Testing and interpretation performed at [facility], [address] [place] [address]. CLIA Number: [id number] As reviewed by Tahmina Duong, PhD, [facility] CLARITY SIGNOUT PATHOLOGIST 10/24/2022 [id number] Final WBC 10/24/2022 6.01 3.70 - 11.00 [...] 10/24/2022 1.06 1.00 - 4.00 k/uL Final Ward% 10/24/2022 11.1 % Final Abs Ward 10/24/2022 0.67 <0.87 k/uL Final Eosin% 10/24/2022 [...] Case Report 10/24/2022 Final Value:Flow Cytometry Case: [id number] Authorizing Provider: Randa Rowell DO Collected: 10/24/2022 12:31 PM Ordering Location: [facility] Received: 10/25/2022 09:22 AM INTERVENTIONAL RADIOLOGY [...] 10/07/2022 1.18 1.00 - 4.00 k/uL Final Ward% 10/07/2022 11.6 % Final Abs Ward 10/07/2022 0.80 <0.87 k/uL Final Eosin% 10/07/2022 [...] are possible options Randa Rowell DO Hematology/Oncology [facility] During this patient visit I have spent approximately 30 minutes out of 35 in counseling regarding test results and coordinating care. documented in this encounterBrecksville Va [facility]12-28-2022 Instructions* Patient Instructions* Randa Rowell DO [...] combinations of current treatments. documented in this encounterBrecksville Va / [facility]12-16-2022 Surgical operation note* Brief Op Note - Jesus Manuel White MD, MD - 10/24/2022 12:47 PM EST INTERVENTIONAL RADIOLOGY POST PROCEDURE NOTE DATE: 10/24/22 NAME: Srini Luis LOG ID: [id number] Pre-Procedure Diagnosis: Macrocytic anemia. Post Procedure Diagnosis: Same. Animal Husbandry Teacher: Dr. Jesus Manuel White Procedure: CT guided [...] any questions or concerns. documented in this [facility]12-16-2022 History and physical note * Jesus Manuel White MD, - 10/24/2022 12:17 PM EST UPDATED HISTORY [...] TIME: 12:17 PM PAGER: documented in this [facility]12-16-2022 Miscellaneous Notes* Sedation Documentation - Charlette Herrera RN - 10/24/2022 11:53 AM EST Home going instructions reviewed with patient, acknowledges understanding of instruction. documented in this [facility]12-15-2022 Miscellaneous Notes* Telephone Encounter - Israel Pruitt [...] Thanks Israel Pruitt DO documented in this encounterBrecksville [facility]12-15-2022 History of Present illness Narrative* Rosa Abrams, OT/L - 10/23/2022 3:34 PM EST Episode Visit Count: 2 Therapist That Will Accept/Oversee The Plan Of Care: Kelsey Abrams Start of Care Date: 10/06/22 Onset Date: 08/29/22 (Linda LYNN) REHABILITATION AND SPORTS THERAPY OCCUPATIONAL THERAPY ON-ROAD DRIVING ASSESSMENT-#2 SESSION SUBJECTIVE: Narinder indicated that he had finished up his home PT and that was awaiting the home care nurse to come by and discharge him soon. He also shared that he is having bone marrow biopsy procedure the next day and that his daughter was in from [place] to take him to the same. She [...] This therapist traveled to Narinder's home in [place] where the drive started and ended. Discussed that he would drive to the grocery store in [facility] [place] where he likes to go as one of the farther locations he will drive to. Talked about islam while that is in [place] but a female friend who lives in his neighborhood also goes there and has been/will continue to provide him a ride [facility]. 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 KEEP UP THE GREAT WORK!!! Please weigh daily and record. Read your food labels and watch for hidden sodium. Keep your sodium intake between 5965-6852 mg daily. 500-650 mg per meal. Continue to eat small, frequent meals. Try to include a form of protein with every meal. Keep your fluid intake at 48-64 ounces /day. Increase your activity as tolerated. Call the [facility] ([phone]) for AN APPOINTMENT (NO WALK-IN VISITS) if you have changes in symptoms or increase in weight of 3 lbs in one day or 5 lbs in a week. Thank you, Christa Paris RN documented in this encounterBrecksville Va / [facility]12-08-2022 Nurse Note* Christa Paris RN - 10/16/2022 1:59 PM EST [id number] and his daughter came to the [facility] for a follow-up visit. Patient came via [...] appetite. Does admit to rare dining out. [id number] Neal CNP in to examine and educate patient. No orders received. [id number] was provided with emphasis on the need to weigh daily, read labels, monitorNa/fluids, monitoring for signs/symptoms, and when to call the [facility] for early intervention. Discussed importance of balancing sodium throughout the day for a goal of 500-650 mg per meal (9293-2467 mg per day) and to limit fluids [...] months with RN or as needed per MAURICIO recommendation. 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 [...] Dr Matt Flannery. PAF (paroxysmal atrial fibrillation) ([facility]) 2020 Post CABG atrial fibrillation PVC's (premature ventricular contractions) RBBB Status post ligation of left atrial appendage 07/2021 At time of CABG PAST SURGICAL HISTORY Procedure Laterality Date ANKLE RIGHT OP SURGERY Right 12/18/2020 Dr Arreola [facility] ARTHROPLASTY TOTAL SHOULDER 11/09/2008 right ARTHROSCOPY OF JOINT UNLISTED Elbow right CABG (4) VEIN GRAFTS & ARTERIAL GRAFT(S) 07/21/2021 In [facility] COLONOSCOPY FLX DX W/COLLJ SPEC WHEN [...] 10/07/2022 Neut% 68.5 10/07/2022 Lymph% 17.1 10/07/2022 Ward% 11.6 10/07/2022 Eosin% 3.2 09/19/2019 Baso% 1.0 10/07/2022 Abs Neut (ANC) 4.73 10/07/2022 Abs Ward 0.80 10/07/2022 Abs Eosin 0.10 10/07/2022 Abs [...] 10/07/2022 HDL Cholesterol 55 10/07/2022 LDL Chol, Swiss 39 10/07/2022 Cholesterol, Total 105 10/07/2022 CARDIAC [...] in 6 months, or sooner if needed. Tara Neal APRN-MAURICIO documented in this encounterBrecksville Va / [facility]12-01-[address] [facility]12-01-2022 Miscellaneous Notes* Telephone Encounter - Valentina Bethea - 10/09/2022 11:31 AM EST Spoke with Jennifer in IR. 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 [...] Dr Matt Flannery. PAF (paroxysmal atrial fibrillation) ([facility]) 2020 Post CABG atrial fibrillation PVC's (premature ventricular contractions) RBBB Status post ligation of left atrial appendage 07/2021 At time of CABG PAST SURGICAL HISTORY Procedure Laterality Date ANKLE RIGHT OP SURGERY Right 12/18/2020 Dr Arreola [facility] ARTHROPLASTY TOTAL SHOULDER 11/09/2008 right ARTHROSCOPY OF JOINT UNLISTED Elbow right CABG (4) VEIN GRAFTS & ARTERIAL GRAFT(S) 07/21/2021 In [facility] COLONOSCOPY FLX DX W/COLLJ SPEC WHEN [...] if found depending on risk stratification Randa Rowell, DO Hematology/Oncology [facility] Medical Decision Making: Problems: Moderate: 1+ chronic illnesses with change Data: Unique test result(s) reviewed: 3+ Medical Decision Making Level: 4 - Moderate documented in this encounterBrecksville Va [facility]12-01-2022 Instructions* Patient Instructions* Randa Rowell DO [...] combinations of current treatments. documented in this encounterBrecksville Va / [facility]11-28-2022 History of Present illness Narrative* Rosa [...] about 1 hour away and Liza in [place]. Both of his sons live out of state but areinvolved and supportive. He very much wants to return to driving and is hopeful he will be able to. Functional Limitations: walking in the community;heavy exertion;driving Prior Level of Function: Independent without limitations Home Environment Patient Lives With: Self/Alone (his 06/10/22) Assistance Available: Other: See Comment Comments: lives in independent living part [facility] with emergency assist nearby and one meal [...] Level of Education: High School Preferred Language: Serbian Right or Left Handed: Right Employment: Retired Recreation / Current Exercise: does exercise as part of home therapy Hobbies / Interests: islam, time with family/friends Home Environment Patient Lives With: Self/Alone (his 06/10/22) Assistance Available: Other: See Comment Comments: lives in independent living [facility] with emergency assist nearby and one meal [...] Driving History: 70 years while has 2020 [employer] CRV; last drove the previous day when his son was visiting and supervised him driving around the complex State: [place] License/Permit #: [id number] Expires: 12/17/22 Restrictions: Corrective lenses; still has [...] AROM for L shoulder since pacemaker replacement Fermentation Manager: Sufficient Right LE: Sufficient Left LE: Sufficient [...] he plans on scheduling eye exam in nearture as would like to get new corrective [...] be helped by hearing aide Visual Scanning/Attention: [place] Making Part B (sec): 99 sec 50th percentile norm for age group: 70-79; Part A: 80 seconds, Part B: 196 seconds Giselle Clock Drawing Test: Srini Ditzler correctly included 7/8 criteria for this test. 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 Patient will complete functional mobility task with good safety awareness during completion of functional portion of this assessment/behind the wheel. Planned Interventions, Frequency, and Duration: Current Frequency: 1 visit Duration: 1 visit Total Number of Visits Planned: 1 Patient to be see for Residential Assistant rehab evaluation PLAN FOR NEXT VISIT: completed behind the wheel portion of assessment Patient demonstrates good understanding of plan of care and treatment. The above goals and plan of care were discussed and agreed upon by patient/family. Billing: Total Treatment Time Minutes (timed/untimed) 120 minutes Evaluation - Moderate Complexity (76762) Self Care / Home Management (28343): 1:1 time: 60 minutes (4 units: 53-67 mins) Total time: 120 minutes Rosa Abrams OT/L, CDRS, CDI Certified Residential Assistant Offset Printing Operator documented in this encounterBrecksville [facility]11-23-2022 History of Present illness Narrative* Stephany [...] given. Stephany Abraham LPN documented in this encounterBrecksville Va / [facility]11-21-2022 Miscellaneous Notes* Telephone Encounter - Jayashree Farmer APRN.CNP - 09/29/2022 12:24 PM EST Noted. Jayashree Farmer APRN.CNP * Telephone Encounter - Yaritza Rodriguez - 09/29/2022 11:49 AM EST [facility] called to report that the patient fell over the weekend. He did not report and injuries following the fall. documented in this encounterBrecksville Va / [facility]11-17-2022 Instructions* Patient Instructions* Israel Pruitt DO [...] avoid fall 3. Patient will follow-up with [facility] hematology on October 09. He will [...] by cardiology next week. documented in this encounterBrecksville Va / [facility]11-17-2022 History of Present illness Narrative* Israel Pruitt DO - 09/25/2022 11:41 AM EST Patient presents with: Hospital F/U HPI: Srini Luis is a 86 year old male who presents to the office today for routine hospital follow-upwith us today. Patient was [facility] to [facility] on September 15 and discharged on the [...] Minor from cardiology on Thursday prior to Thanksgi the next day. 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 [...] Dr Matt Flannery. PAF (paroxysmal atrial fibrillation) ([facility]) 2020 Post CABG atrial fibrillation PVC's (premature ventricular contractions) RBBB Status post ligation of left atrial appendage 07/2021 At time of CABG PAST SURGICAL HISTORY Procedure Laterality Date ANKLE RIGHT OP SURGERY Right 12/18/2020 Dr Arreola [facility] ARTHROPLASTY TOTAL SHOULDER 11/09/2008 right ARTHROSCOPY OF JOINT UNLISTED Elbow right CABG (4) VEIN GRAFTS & ARTERIAL GRAFT(S) 07/21/2021 In [facility] COLONOSCOPY FLX DX W/COLLJ SPEC WHEN [...] of Moderate Degree (Hcc) Weakness Generalized Pacemaker ALLERGIES Allergen Reactions Simvastatin [...] 1.00 - 4.00 k/uL 1.53 0.86 (L) Ward% % 14.4 13.2 Abs Ward <0.87 k/uL 0.89 (H) 1.17 (H) Eosin% [...] Lymph 1.00 - 4.00 k/uL 0.86 (L) Ward% % 13.2 Abs Ward <0.87 k/uL 1.17 (H) Eosin% % 2.6 [...] which included preparing to see the patient, [id number] patient care, completing clinical documentation, obtaining and/or [...] reviewed Yadira Walsh LPN documented in this encounterBrecksville [facility]11-15-2022 Miscellaneous Notes* Addendum Note - Jayashree [...] Thank you! Cami Plasencia documented in this encounterBrecksville Va / [facility]11-11-2022 History of Present illness Narrative* Lena Cruz RN - 09/19/2022 3:07 PM EST Patient notified. He verbalizes understanding. Lena Cruz RN * Israel Pruitt DO - 09/19/2022 2:48 PM EST Yes resume B12 Israel Pruitt DO * Lena Cruz RN - 09/19/2022 12:21 PM EST TRANSITION CARE MANAGEMENT (TCM) INITIAL CONTACT Provider Action/FYI: 86 year old male admitted to [facility] from 09/15 - 09/18/2022 for symptomatic bradycardia, needed pacer. Appointments: NEURO / Dr. Rob - 09/23/2022 PCP / Dr. Pruitt - 09/25/2022 Device Clinic - 10/01/2022 Heart Failure Clinic, Tara Neal APRN, PHOTO MASK PATTERN GENERATOR - 10/16/2022 [facility] - Start of Care visit tomorrow. Patient [...] might be hidden SUMMARY: -Pt discharged from [facility] on 09/18/2022. -Follow up appointment on 09/25/2022. -Medication review done: Yes. -Admitted for: Symptomatic bradycardia, needed pacer CONCERNS: As above NEW MEDICATIONS: Metoprolol Tartrate 25 mg tablets, /2 tablet (12.5 mg) twice daily -- lower dose Xarelto 20 mg, resume taking 09/20/2022 MEDS HELD/DISCONTINUED: None BRIEF HOSPITAL COURSE: Copied / pasted from [facility] notes: PROCEDURES DURING HOSPITALIZATION: Pacer placed , [...] A prescription was sent to the pharmacy. Patientwill have follow-up with us week of September [...] use of a walker at home at [facility] living at [place]. We will reach out to the patient tomorrow to have a phone encounter to make sure the patient is clear in regards to discharge med list and reconcile those meds on discharge. Lena Cruz RN documented in this encounterBrecksville [facility]11-11-2022 Miscellaneous Notes* Telephone Encounter - iMnerva Herbert RN - 09/19/2022 11:44 AM EST Phone call received from Liza Mark, patients daughter. Requested canceling and rescheduling hisnext appointment with the [facility] secondary to having follow up appointments with PCP, Cardiology and SN. Appt rescheduled for October 16, 2022. documented in this encounterBrecksville Va / [facility]11-11-2022 History of Present illness Narrative* Ten Weber, [facility] - 09/19/2022 8:47 AM EST TRANSITION CARE MANAGEMENT (TCM) PHARMACY CONTACT Provider Action/FYI: TCM Medication Reconciliation completed for patient. See medication list table below for details. ACTION REQUIRED: D/t inadvertent confusion regarding metoprolol dose change, patient received full 25mg (50mg 1/2 tablet) last night and this morning- dtr agrees to call pharmacy and get new dosage (25mg 1/2 tablet BID) from [facility] pharmacy- route to PCP to review/FYI, confirmed at time of note per pharmacy records that new dosage was picked up Initial contact with patient post discharge, spoke to patient and family member, rojas De Jesus (per pt preference- dtr manages medications),. Patient identified by name and . Summary: -Pt discharged from [facility] on 09/18/22. -Follow up appointment on 09/25 card CHF, Defer to TCM hub RN for scheduling assistance. -Medication review done: Full medication review completed -Admitted for symptomatic bradycardia, needed pacer Patient was contacted by telephone, identified for pharmacist care from discharge call list, and gave consent to manage medications related to transitional care management pursuant to the consult agreement with the [facility] [place]. Patient Concerns: Review and discussion of medications [...] off of Xarelto and will return to Xarel on Thursday, September 20. Patient had a [...] use of a walker at home at [facility] living at [place]. We will reach out to the patient [...] 2021 Pharmacy 08/05/22 E- [facility] [place] [address] - [address] [phone] Allergy/Contraindication: atorvastatin Reactions: Other: See Comments. Reaction type: Side Effect/Intolerance. User documented allergy severity: Medium. Drug Class Match with SIMVASTATIN (Class: [id number] REDUCTASE INHIBITORS). Elevated CK Last overridden by: Jayashree Farmer APRN.PHOTO MASK PATTERN GENERATOR on Aug 05, 2022 12:47 PM Reason: [...] hospital setting Sep 16 - Sep 18 supervisor particleboard these medications at [facility] Patient reportedly taking as prescribed without any issues Reviewed change- took 25mg last night and this morning Given pharmacy phone # - encouraged to cotton picking machine operator correct 25mg tablets to split Patient's dtr verbalized understanding, agreeable to plan Discontinued: 09/18/2022 6:50 PM ADOBE FLEX DEVELOPER dose on pharmacy dispense records with recent [...] daily with dinner. Resume Sep 20 2022 supervisor particleboard these medications at [facility] Resume tomorrow -09/20/22 start date Advised refill issued to [facility] pharmacy as well Patient's dtr verbalized understanding, agreeable to plan Discontinued: 09/18/2022 6:50 PM ADOBE FLEX DEVELOPER dose spironolactone (ALDACTONE) 25 mg tablet Take 1 tablet by mouth once daily. on pharmacy dispense records with recent fill hx Patient reportedly taking as prescribed without any issues Preferred pharmacy: [facility] [place] [address] - [address] [phone] [id number] [facility] [id number] Estimated Creatinine Clearance: 43.5 mL/min (based on SCr of 1.14 mg/dL). 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 The patient is thymoma negative seronegative for antibodies positive. Asymptomatic since July 2017 when he's been off medication Nocturnal hypoxemia On oxygen at night Osteoarthritis, generalized Pacemaker 09/17/2022 Dual Pacer ([employer]) for High Grade AV Blk below His; 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 PAF (paroxysmal atrial fibrillation) ([facility]) 2020 Post CABG atrial fibrillation PVC's (premature [...] COVID-19 booster vaccine, age 12+ yr, bivalent (sones) 07/24/2022 COVID-19 original vaccine, age 12+ yr, monovalent ([employer] PURPLE TOP) 12/04/2020 12/25/2020 08/20/2021 05/19/2022 [...] PM NURSE CARD CHF 3 PEG [place] [phone] 09/25/2022 3:00 PM TARA NEAL [employer] [phone] 10/01/2022 11:30 AM DEVICE CLINIC CARD UP ALYSSA GORDON (S [phone] 10/06/2022 1:30 PM RADHAROSA ROSADO [employer] [facility] N [phone] 10/09/2022 10:30 AM RANDA ROWELL [facility] [phone] Interventions Made: Patient education/Medication counseling and Adherence counseling Pharmacist Recommendations Made None Care Coordination: Pharmacy contacted to facilitate patient care ([facility] records) Time spent on patient: 45-60 minutes TEN WEBER PHARMACIST, [facility] Pharmacy Transitional Care Management September 19, 2022 2:42 PM documented in this encounterBrecksville Va [facility]11-09-2022 History of Past illness Narrative* Problem [...] 08/11/2005 01/02/2015 Follow-up examination following surgery 10/31/2001/02/2015 [facility] current use of ant icoagulants with INR goal of 2.0-3.0 09/15/2022 Nocturnal hypoxemia 08/29/2022 Overview: On oxygen at night documented as of this encounter (statuses as of 09/19/2022) [facility] History of Past illness Narrative* Problem [...] Follow-up examination following surgery 10/31/20 03 01/02/2015 [facility] current use of ant icoagulants with INR goal of 2.0-3.0 09/15/2022 Nocturnal hypoxemia 08/29/2022 Overview: On oxygen at night documented as of this encounter (statuses as of 09/19/2022) [facility] History of Past illness Narrative* Problem [...] Follow-up examination following surgery 10/31/20 03 01/02/2015 [facility] current use of ant icoagulants with INR goal of 2.0-3.0 09/15/2022 Nocturnal hypoxemia 08/29/2022 Overview: On oxygen at night documented as of this encounter (statuses as of 09/19/2022) [facility] History of Past illness Narrative* Problem [...] 08/11/2005 01/02/2015 Follow-up examination following surgery 10/31/2001/02/2015 [facility] current use of ant icoagulants with INR goal of 2.0-3.0 09/15/2022 Nocturnal hypoxemia 08/29/2022 Overview: On oxygen at night documented as of this encounter (statuses as of 09/23/2022) [facility] History of Past illness Narrative* Problem [...] 08/11/2005 01/02/2015 Follow-up examination following surgery 10/31/2001/02/2015 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 current use of ant icoagulants with INR goal of 2.0-3.0 09/15/2022 Nocturnal hypoxemia 08/29/2022 Overview: On oxygen at night documented as of this encounter (statuses as of 09/24/2022) [facility] History of Past illness Narrative* Problem [...] Keratosis 010 01/02/2015 Follow-up examination, following unspecified deheraj diane 06/11/2009 08/14/2009 ACTINIC DAMAGE///SOLAR SKIN DAMAGE NOS 8 01/02/2015 Dermatitis due to cosmetics 04/07/200812/11 ACTINIC DAMAGE///CHR SOLAR SKIN DAMAGE NOS 04/0701/02/2015 Other seborrheic keratosis 04/07/200801/02 SOLAR LENTIGINES///DYSCHROMIA OTHER 04/07/2008 01/02/2015 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 01/02/2015 Special screening for malignant neoplasms, colon 08/11/2005 01/02/2015 Follow-up examination following surgery 10/31/20 03 01/02/2015 [facility] current use of ant icoagulants with INR goal of 2.0-3.0 09/15/2022 Nocturnal hypoxemia 08/29/2022 Overview: On oxygen at night documented as of this encounter (statuses as of 09/25/2022) [facility] History of Past illness Narrative* Problem [...] 08/11/2005 01/02/2015 Follow-up examination following surgery 10/31/2001/02/2015 [facility] current use of ant icoagulants with INR goal of 2.0-3.0 09/15/2022 Nocturnal hypoxemia 08/29/2022 Overview: On oxygen at night documented as of this encounter (statuses as of 09/29/2022) [facility] History of Past illness Narrative* Problem [...] Follow-up examination following surgery 10/31/20 03 01/02/2015 [facility] current use of ant icoagulants with INR goal of 2.0-3.0 09/15/2022 Nocturnal hypoxemia 08/29/2022 Overview: On oxygen at night documented as of this encounter (statuses as of 10/01/2022) [facility] of Past illness Narrative* Problem [...] Follow-up examination following surgery 10/31/20 03 01/02/2015 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 current use of ant icoagulants with INR goal of 2.0-3.0 09/15/2022 Nocturnal hypoxemia 08/29/2022 Overview: On oxygen at night documented as of this encounter (statuses as of 10/08/2022) [facility] of Past illness Narrative* Problem [...] Follow-up examination following surgery 10/31/20 03 01/02/2015 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 current use of ant icoagulants with INR goal of 2.0-3.0 09/15/2022 Nocturnal hypoxemia 08/29/2022 Overview: On oxygen at night documented as of this encounter (statuses as of 10/09/2022) [facility] History of Past illness Narrative* Problem [...] Follow-up examination following surgery 10/31/20 03 01/02/2015 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 current use of ant icoagulants with INR goal of 2.0-3.0 09/15/2022 Nocturnal hypoxemia 08/29/2022 Overview: On oxygen at night documented as of this encounter (statuses as of 10/09/2022) [facility] History of Past illness Narrative* Problem [...] Follow-up examination following surgery 10/31/20 03 01/02/2015 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 current use of ant icoagulants with INR goal of 2.0-3.0 09/15/2022 Nocturnal hypoxemia 08/29/2022 Overview: On oxygen at night documented as of this encounter (statuses as of 10/16/2022) [facility] of Past illness Narrative* Problem [...] Follow-up examination following surgery 10/31/20 03 01/02/2015 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 current use of ant icoagulants with INR goal of 2.0-3.0 09/15/2022 Nocturnal hypoxemia 08/29/2022 Overview: On oxygen at night documented as of this encounter (statuses as of 10/23/2022) [facility] of Past illness Narrative* Problem [...] Follow-up examination following surgery 10/31/20 03 01/02/2015 [facility] current use of ant icoagulants with INR goal of 2.0-3.0 09/15/2022 Nocturnal hypoxemia 08/29/2022 Overview: On oxygen at night documented as of this encounter (statuses as of 10/25/2022) [facility] of Past illness Narrative* Problem [...] Follow-up examination following surgery 10/31/20 03 01/02/2015 [facility] current use of ant icoagulants with INR goal of 2.0-3.0 09/15/2022 Nocturnal hypoxemia 08/29/2022 Overview: On oxygen at night documented as of this encounter (statuses as of 10/28/2022) [facility] of Past illness Narrative* Problem [...] Follow-up examination following surgery 10/31/20 03 01/02/2015 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 current use of ant icoagulants with INR goal of 2.0-3.0 09/15/2022 Nocturnal hypoxemia 08/29/2022 Overview: On oxygen at night documented as of this encounter (statuses as of 11/11/2022) [facility] of Past illness Narrative* Problem [...] Follow-up examination following surgery 10/31/20 03 01/02/2015 [facility] current use of ant icoagulants with INR goal of 2.0-3.0 09/15/2022 Nocturnal hypoxemia 08/29/2022 Overview: On oxygen at night documented as of this encounter (statuses as of 11/12/2022) [facility] of Past illness Narrative* Problem [...] 08/11/2005 01/02/2015 Follow-up examination following surgery 10/31/2001/02/2015 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 current use of ant icoagulants with INR goal of 2.0-3.0 09/15/2022 Nocturnal hypoxemia 08/29/2022 Overview: On oxygen at night documented as of this encounter (statuses as of 11/20/2022) [facility] of Past illness Narrative* Problem [...] 08/11/2005 01/02/2015 Follow-up examination following surgery 10/31/2001/02/2015 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 current use of ant icoagulants with INR goal of 2.0-3.0 09/15/2022 Nocturnal hypoxemia 08/29/2022 Overview: On oxygen at night documented as of this encounter (statuses as of 11/26/2022) [facility] of Past illness Narrative* Problem [...] 08/11/2005 01/02/2015 Follow-up examination following surgery 10/31/2001/02/2015 [facility] current use of ant icoagulants with INR goal of 2.0-3.0 09/15/2022 Nocturnal hypoxemia 08/29/2022 Overview: On oxygen at night documented as of this encounter (statuses as of 11/26/2022) [facility] of Past illness Narrative* Problem [...] 08/11/2005 01/02/2015 Follow-up examination following surgery 10/31/2001/02/2015 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 current use of ant icoagulants with INR goal of 2.0-3.0 09/15/2022 Nocturnal hypoxemia 08/29/2022 Overview: On oxygen at night documented as of this encounter (statuses as of 12/04/2022) [facility] of Past illness Narrative* Problem [...] 08/11/2005 01/02/2015 Follow-up examination following surgery 10/31/2001/02/2015 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 current use of ant icoagulants with INR goal of 2.0-3.0 09/15/2022 Nocturnal hypoxemia 08/29/2022 Overview: On oxygen at night documented as of this encounter (statuses as of 12/04/2022) [facility] of Past illness Narrative* Problem [...] Follow-up examination following surgery 10/31/20 03 01/02/2015 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 current use of ant icoagulants with INR goal of 2.0-3.0 09/15/2022 Nocturnal hypoxemia 08/29/2022 Overview: On oxygen at night documented as of this encounter (statuses as of 12/06/2022) [facility] of Past illness Narrative* Problem [...] Follow-up examination following surgery 10/31/20 03 01/02/2015 [facility] current use of ant icoagulants with INR goal of 2.0-3.0 09/15/2022 Nocturnal hypoxemia 08/29/2022 Overview: On oxygen at night documented as of this encounter (statuses as of 12/12/2022) [facility] of Past illness Narrative* Problem [...] Follow-up examination following surgery 10/31/20 03 01/02/2015 [facility] current use of ant icoagulants with INR goal of 2.0-3.0 09/15/2022 Nocturnal hypoxemia 08/29/2022 Overview: On oxygen at night documented as of this encounter (statuses as of 12/15/2022) [facility] History of Past illness Narrative* Problem [...] Follow-up examination following surgery 10/31/20 03 01/02/2015 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 current use of ant icoagulants with INR goal of 2.0-3.0 09/15/2022 Nocturnal hypoxemia 08/29/2022 Overview: On oxygen at night documented as of this encounter (statuses as of 2022) [facility] History of Past illness Narrative* Problem [...] Follow-up examination following surgery 10/31/20 03 01/02/2015 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 current use of ant icoagulants with INR goal of 2.0-3.0 09/15/2022 Nocturnal hypoxemia 08/29/2022 Overview: On oxygen at night documented as of this encounter (statuses as of 12/23/2022) [facility] History of Past illness Narrative* Problem [...] Follow-up examination following surgery 10/31/20 03 01/02/2015 [facility] current use of ant icoagulants with INR goal of 2.0-3.0 09/15/2022 Nocturnal hypoxemia 08/29/2022 Overview: On oxygen at night documented as of this encounter (statuses as of 12/31/2022) [facility] Miscellaneous Notes* Telephone Encounter - Bebo Vasquez RN - 09/17/2022 12:35 PM EST Pt called in and reports her father was in the hospital and had a pacemaker placed. She reports he will be discharged tomorrow or Thursday. She states he was only out of the hospital for 1 1/2 weeks from a stroke and wanted to make sure the orders were set back up. Please call daughter and advise. documented in this encounterBrecksville [facility]11-[facility]22 Miscellaneous Notes* Telephone Encounter - Lena [...] understanding. Lena Cruz RN documented in this encounterBrecksville [facility]11-03-[facility]22 Instructions* Patient Instructions* Israel Pruitt, - 09/11/2022 4:44 PM EDT 1. No change in current medication 2. Labs will be drawn next week the week of September 15 prior to the patient's hematology visit within [facility] including CBC and iron levels that will [...] concern of the patient living independent at [place]. 7. Patient is up-to-date on vaccinations documented in this encounterBrecksville [facility]11-03-[facility] History of Present illness Narrative* Israel Pruitt DO - 09/11/2022 4:20 PM EDT Patient presents with: Transition Of Care: Rehab HPI: Srini Luis is a 86 year old male who presents to the office today for hospital follow up with laurita at [facility] for left pontine stroke Patient is here for hospital follow-up with the acute hospitalization at [facility] August 22 through August 26. 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/22/2021 4 vessel CABG with ORNELAS-LAD, SVG-RI, SVG-OM, and SVG-RCA in [place] Hx of colonoscopy 09/27/2015 no reported polyps per patient recollection Hypertension Hypothyroidism [facility] current use of anticoagulants with INR goal [...] OP SURGERY Right 12/18/2020 Dr Elba Sherman [facility] ARTHROPLASTY TOTAL SHOULDER 11/09/2008 right ARTHROSCOPY OF JOINT UNLISTED Elbow right CABG (4) VEIN GRAFTS & ARTERIAL GRAFT(S) 07/21/2021 In [facility] COLONOSCOPY FLX DX W/COLLJ SPEC WHEN [...] Appendage Osteoarthritis, Generalized Paf (Paroxysmal Atrial Fibrillation) ([facility]) Policy Advisor Current Use of Anticoagulants With Inr Goal of 2.0-3.0 Pvc's (Premature Ventricular Contractions) Benign Hypertension Rbbb Acute Stroke Due to Ischemia ([facility]) Vertebral Artery Occlusion, 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 Acute Ischemic Stroke ([facility]) Malnutrition of Moderate Degree ([facility] [facility]) ALLERGIES Allergen Reactions Simvastatin Other: See Comments [...] Lymph 1.00 - 4.00 k/uL 0.88 (L) Ward% % 7.1 Abs Ward <0.87 k/uL 0.77 Eosin% % 2.3 Abs [...] which included preparing to see the patient, uufw-gh-slmn patient care, completing clinical documentation, obtaining and/or [...] EDT Pt is here for a TCM ([facility] rehab discharge 09-05-22) Medication list review Yadira Walsh LPN documented in this encounterBrecksville Va [facility]11-03-2022 Miscellaneous Notes* Telephone Encounter - Mary Ann Pabon RN - 09/11/2022 12:18 PM EDT Called and left a detailed message that provider will follow OT plan of care. Mary Ann Pabon RN * Telephone Encounter - Guillermina Cummings APRN.CNP - 09/11/2022 11:59 AM EDT Ok for plan of care * Telephone Encounter - Mary Ann Pabon RN - 09/11/2022 10:09 AM EDT Citlalli CHILDERS from [facility] calls with patient's plan of care for Occupational Therapy. Occupational therapy will see patient for 5 visits to improve function of left arm/hand and work with patient on safely completing daily activities. Please review and advise, Mary Ann Pabon RN documented in this encounterBrecksville Va / Crille Hospital11-01-2022 History of Present illness Narrative* Israel Pruitt DO - 09/09/2022 5:35 PM EDT We will wait till Sep 11 when patient is due to be seen in the office for follow up ie TCM visit BP will be assessed at that time Thanks, Israel Pruitt DO * Lena Crzu RN - 09/08/2022 8:53 AM EDT TRANSITION CARE MANAGEMENT (TCM) INITIAL CONTACT Provider Action/FYI: 86 year old male admitted to [facility] from 08/26- 09/05/2022 for rehab following acute ischemic stroke. Appointments: PCP / Dr. Pruitt - 09/11/2022 HEME/ONC / Dr. Rowell - 09/18/2022 NEURO / Dr. Rob - 09/23/2022 [facility] 09/08/2022 3:10 p.m. I am doing OK. [...] might be hidden SUMMARY: -Pt discharged from [facility] on . -Follow up appointment on 09/11/2022. -Medication review done: Yes -Admitted for: Rehab following acute ischemic stroke CONCERNS: None at this time from patient. NEW MEDICATIONS: None MEDS HELD/DISCONTINUED: None BRIEF HOSPITAL COURSE: Copied / pasted from [facility] notes: Additional Provider to Provider Information: Patient [...] MD Lena Davis RN documented in this encounterBrecksville Va / [facility]10-28-2022 Miscellaneous Notes* Telephone Encounter - Lena Cruz RN - 09/05/2022 9:[address] Pruitt, called patient's daughter, Liza, with update that patient will be discharged to [facility] today, after receiving a unit of blood. 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 Appointment with Dr. Pruitt is already scheduled on 09/11. She expresses her appreciation to PCP for his care and updates to family. Lena Cruz RN documented in this encounterBrecksville Va / [facility]10-26-2022 Miscellaneous Notes* Telephone Encounter - Lena [...] Please let her know. documented in this encounterBrecksville Va / [facility]ille Hospital10-14-2022 History of Present illness Narrative* Vaishali Ng MD, PhD - 08/22/2022 2:41 PM EDT TELESTROKE DOCUMENTATION Name: Srini Luis : 1935 Referring Site: [facility] Referring Provider: Last Known Well (Date/Time): 08/22/22 [...] a telestroke. Thank you for contacting the [facility]. I appreciate the opportunity for allowing me to participate in Srini Luis's care. Please feel free to contact me and/or the [facility] at any time if you have any further questions or need additional assistance. Vaishali Ng MD, PhD documented in this encounterBrecksville Va / [facility] Hospital10-06-2022 Miscellaneous Notes* Telephone Encounter - sIrael Pruitt DO - 08/14/2022 2:18 PM EDT [...] once daily. Micaela SILVEIRA documented in this encounterBrecksville Va / [facility]ille Hospital09-29-2022 History of Present illness Narrative* Jayashree [...] Summary: TCM F/U Patient was treated at [facility] 07/04-07/09/22 for bilateral leg swelling, CHF 30 [...] Summary: TCM F/U Patient was treated at [facility] 07/04-07/09/22 for bilateral leg swelling, CHF 30 [...] to review and assist with rx refill. Business Development Coordinator plan for next outreach: No further follow up needed at this time Referred to Primary Care CDM for continued monitoring of Chronic condition CHF Encouraged patient to contact office sooner for any new/worsening symptoms/concerns. Signature Tere GERONIMO, RN, [facility] Primary Care Transitional Business Development Coordinator [facility] [phone] August 07, 2022 documented in this encounterBrecksville Va / [facility]09-27-2022 Miscellaneous Notes* Telephone Encounter - Jayashree [...] patient. Lena Cruz RN documented in this encounterBrecksville Va / Crille Hospital09-16-2022 History of Present illness Narrative* Tere Wang RN - 07/25/2022 1:44 PM EDT TRANSITION CARE MANAGEMENT (TCM) FOLLOW-UP NOTE Provider FYI Summary: TCM F/U Patient was treated at [facility] 07/04-07/09/22 for bilateral leg swelling, CHF Noted patient had PCP office visit F/U yesterday 07/24/22 Patient outreach deferred to another day Summary: TCM F/U Patient was treated at [facility] 07/04-07/09/22 for bilateral leg swelling, CHF Noted patient had PCP office visit F/U yesterday 07/24/22 Patient outreach deferred to another day Business Development Coordinator plan for next outreach: Will follow up 1 week Signature Tere Wang MSN, RN, [facility] Primary Care Transitional Business Development Coordinator [facility] [phone] July 25, 2022 documented in this encounterBrecksville Va / [facility]ille Hospital09-15-2022 Instructions* Patient Instructions* Israel Pruitt DO [...] to lumbar canal stenosis. documented in this encounterBrecksville Va / Crille Hospital09-15-2022 History of Present illness Narrative* Israel Pruitt, DO - 07/24/2022 11:17 AM EDT Patient presents with: Hospital F/U: [facility] 07-04-22 to 07-09-22-CHF HPI: Srini Luis is a 86 year old male who presents to the office today for routine OV with us today. Patients lost his dear in the last 2 months Patient lives in [place] at [facility] in [place] . 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 4 vessel CABG with ORNELAS-LAD, SVG-RI, SVG-OM, and SVG-RCA in [place] Hx of colonoscopy 09/27/2015 no reported polyps per patient recollection Hypertension Hypothyroidism [facility] current use of anticoagulants with INR goal [...] RIGHT OP SURGERY Right 12/18/2020 Dr Arreola [facility] ARTHROPLASTY TOTAL SHOULDER 11/09/2008 right ARTHROSCOPY OF JOINT UNLISTED Elbow right CABG (4) VEIN GRAFTS & ARTERIAL GRAFT(S) 07/21/2021 In [facility] COLONOSCOPY FLX DX W/COLLJ SPEC WHEN [...] Appendage Osteoarthritis, Generalized Paf (Paroxysmal Atrial Fibrillation) ([facility]) Policy Advisor Current Use of Anticoagulants With Inr Goal of 2.0-3.0 Nocturnal Hypoxemia Pvc's (Premature Ventricular Contractions) Benign Hypertension Rbbb Chf (Congestive Heart Failure), Nyha Class I, Acute On Chronic, Diastolic ([facility]) ALLERGIES Allergen Reactions Simvastatin Other: See Comments [...] daily. As per recommendation of the patients art coordinator within the CC in [facility] aspirin, enteric coated (ASPIRIN, ENTERIC COATED) 81 [...] - 4.00 k/uL 1.19 1.10 1.35 1.31 Ward% % 12.7 13.9 15.1 13.5 Abs Ward <0.87 k/uL 1.03 (H) 1.12 (H) 1.13 [...] Negative Ketones, Urine Negative Negative Negative Specific [place], Ur 1.005 - 1.030 <1.005 (L) 1.008 [...] which included preparing to see the patient, azew-ce-dium patient care, completing clinical documentation, obtaining and/or [...] Pt is here for a hospital follow up-[facility] 07-04-22 to 07-09-22 for CHF Medication reconciliation completed Yadira Walsh LPN documented in this encounterBrecksville Va / [facility]09-13-2022 Miscellaneous Notes* Telephone Encounter - Meron Villa RN - 07/22/2022 1:[address] Trevizo reviewed case as recommended by Marcella Trevizo agrees to proceed with Bilateral L4-L5, L5-S1 Lumbar Faced MMB documented in this encounterBrecksville Va / [facility]ille Hospital09-08-[address] [facility]09-08-2022 History of Present illness Narrative* Rosa Gonzalez [...] reported polyps per patient recollection Hypertension Hypothyroidism [facility] current use of anticoagulants with INR goal [...] OP SURGERY Right 12/18/2020 [facility] ARTHROPLASTY TOTAL SHOULDER 11/09/2008 right ARTHROSCOPY OF JOINT UNLISTED Elbow right CABG (4) VEIN GRAFTS & ARTERIAL GRAFT(S) 07/21/2021 In [facility] COLONOSCOPY FLX DX W/COLLJ SPEC WHEN [...] daily. As per recommendation of the patients art coordinator within the CC in [facility] aspirin, enteric coated (ASPIRIN, ENTERIC COATED) 81 [...] 07/09/2022 Neut% 65.3 07/09/2022 Lymph% 18.0 07/09/2022 Ward% 13.5 07/09/2022 Eosin% 3.2 09/19/2019 Baso% 1.0 07/09/2022 Abs Neut (ANC) 4.74 07/09/2022 Abs Ward 0.98 07/09/2022 Abs Eosin 0.13 07/09/2022 Abs [...] 07/06/2022 HDL Cholesterol 44 07/06/2022 LDL Chol, Swiss 23 07/06/2022 Cholesterol, Total 75 07/06/2022 CARDIAC [...] IN CARE I have personally performed a noxq-ki-blja diagnostic evaluation on this patient, including anamnesis [...] spent 60 total minutes involved in the qgbq-th-rbhl care of patient Srini Luis. Greater than 50% of the time was spent counseling and/or coordinating care for the patient, the nature of which is noted above. The health conditions of this patient carry a high risk of complications, morbidity, and/or mortality. documented in this encounterBrecksville Va / [facility]ille Hospital09-08-2022 Nurse Note* Christa Paris RN - 07/17/2022 10:56 AM EDT [id number], his daughter and his son-in-law, came to the [facility] for a mew patient visit. Patient came [...] admit to occasional salt shaker use/dining out. [id number]-KztnaRosa Gonzalez PA-C in to examine and educate patient. Orders received. Patient to [id number] mg of IV Lasix in the C. No further Lasix today. Verbal and written instructions provided. Patient verbalized understanding. [id number] patient was using canned items and was still using the salt shaker. Extensive education was provided with emphasis on the need to weigh daily, read labels, monitor Na/fluids, monitoringfor signs/symptoms, and when to call the [facility] for early intervention. Discussed importance of balancing sodium throughout the day for a goal of 500-650 mg per meal (4314-9101 mg per day) and to limit fluids to 48-64 ounces per day. Encouraged the patient to call the [facility] with any questions/concerns. Discussed home exercise (walking, [...] (time): 1150 Complications: no documented in this encounterBrecksville Va / Crille Hospital09-08-2022 Instructions* Patient Instructions* Christa Paris RN - 07/17/2022 10:55 AM EDT Thank you for visiting the [facility] today. YOU RECEIVED 20 MG OF IV FUROSEMIDE (LASIX) IN THE [facility]. NO FURTHER FUROSEMIDE (LASIX) TODAY (07/17/22). ON 07/18/22, RETURN TO FUROSEMIDE (LASIX) 20 MG TWICE A DAY. Please weigh daily and record. Read your food labels and watch for hidden sodium. Keep your sodium intake between 1009-4020 mg daily. 500-650 mg per meal. Continue to eat small, frequent meals. Try to include a form of protein with every meal. Keep your fluid intake at 48-64 ounces /day. Increase your activity as tolerated. Call the [facility] ([phone]) for AN APPOINTMENT (NO WALK-IN VISITS) if you have changes in symptoms or increase in weight of 3 lbs in one day or 5 lbs in a week. Thank you, Christa Paris RNTWICE A DAY documented in this encounterBrecksville Va / [facility]ille [facility]09-02-2022 Miscellaneous Notes* Telephone Encounter - Roselia Torres - 07/11/2022 9:21 AM EDT Patient returned call and will keep 07/24 appointment with PCP * Telephone Encounter - Sinai Torres - 07/10/2022 3:16 PM EDT Scheduled appointment. [...] need to swap with Guillermina please onthe 6th, or the 13th Thanks , Israel Pruitt DO * Telephone Encounter - Lena Cruz RN - 07/10/2022 8:38 AM EDT Daughter, Liza (Physical Therapist), calls stating patient was discharged from [facility] yesterday following treatment for CHF exacerbation. On Tuesdays, granddaughter staying with him On , another daughter staying with him Easiest for TCM appointment to be scheduled on Thursday or She also reports family has been noticing a few memory lapses here and there which they are uncertain if related to depression, grief or possibly something else? She was unaware that HHC had been ordered for patient. Advised this commercial underwriter or [facility] Nurse will be reaching out to patient today or tomorrow. She verbalizes understanding. Lena Cruz RN documented in this encounterBrecksville Va / [facility]ille [facility]09-01-2022 Miscellaneous Notes* Telephone Encounter - Yenny Montano - 07/10/2022 1:46 PM EDT The patient was discharged from [facility] 07-09-22 with an order to schedule with the [facility] Failure Clinic. The Clinic reached out to the patient. Appointment scheduled 07-17-22. Yenny Montano documented in this encounterBrecksville Va / [facility]ille Hospital09-01-2022 History of Present illness Narrative* Lupis Servin MA - 07/10/2022 12:35 PM EDT POPULATION HEALTH NAVIGATION OUTREACH Action/July 10, 2022 1st attempt Attempted to reach patient to assist with scheduling his [facility] follow up. Left message on voicemail for him to return call for scheduling assistance. My chart also sent. Patient discharged on 07.09.2022 TCM eligible until 07.23.2022 Pt identified by name and : NO Outreach Outcome/Action Unable to reach patient: Left message MyChart message sent Did you use a PCP flex slot to schedule this appointment? N/A Reason for Outreach Community Monitoring Pool Payer: Payor: [facility] MEDICARE / Plan: UHC AARP MEDICARE HMO [...] TCM Home Visit Referral Source of Stratification: [facility] Admission Status: Discharged Readmission Risk Score: 22 BECKY Score: 15 Program referral criteria met: Does not meet referral criteria Patient does not qualify for High Risk TCM Home Visit program due to: Does not meet referral criteria Patient does not quality for High Risk TCM Home Visit Program due to: Does not meet referral criteria Preferred contact number: [phone] Is patient staying somewhere other than the [...] TCM Eligible through 07/23/22 will forward to manufacturing scheduler SUMMARY: Pt discharged from [place] on 07/09/22. Admitted for: CHF Contact made with patient: Yes Hi my name is Telma Thorpe, JESSY and I am calling from the [facility] on behalf of your PCP, Israel [...] like to speak with a social work food court team member to help give you support [...] I will send your request to a manufacturing scheduler who will contact and assist you with that appointment. This will give you an opportunity to ask any questions or address any concerns youmay have with your PCP. Inform the patient that if they have any questions or concerns prior to that appointment, to call their PCP's office right away. ACTION TAKEN: Patient desires an appointment - Routed to [facility] [[phone]] for schedulingtelehealth visit (telephonic, virtual visit, or [...] the way if possible). documented in this encounterBrecksville Va / Crille Hospital08-31-2022 NoteHNO ID: [id number] Author: Bebo Cuevas RN Service: Nursing Author Type: Registered Nurse Type: Nursing Progress Note Filed: 07/09/2022 2:27 PM Note Text: Discharge instructions given to pt, family at bedside and will transport home.[facility]08-31-2022 Miscellaneous Notes* Telephone Encounter - Micaela SILVEIRA - 07/09/2022 4:24 PM EDT Advised Santana of the message below, verbalized understanding. Micaela Belkys SILVEIRA * Telephone Encounter - Guillermina Cummings APRN.CNP - 07/09/2022 4:18 PM EDT Ok for HH orders * Telephone Encounter - Almita Hernandez LPN - 07/09/2022 12:28 PM EDT Santana from [facility] calling to state pt will be discharging from [facility] todayfor CHF exacerbation. Santana requesting VO for home care to include alf, OT & PT. Pt will start this tomorrow if it is ok'd by pcp today. Almita Hernandez LPN documented in this encounterBrecksville Va / [facility]ille Hospital08-31-[address] [facility]08-30-[address] [facility]08-29-[address] [facility]08-28-[address] [facility]08-27-[address] [facility]08-26-2022 History of Past illness Narrative* Problem [...] of this encounter (statuses as of 09/03/2022) [facility]-26[facility] History of Past illness Narrative* Problem [...] of this encounter (statuses as of 09/05/2022) [facility]-26-[facility] History of Past illness Narrative* Problem [...] of this encounter (statuses as of 09/09/2022) [facility] History of Past illness Narrative* Problem [...] of this encounter (statuses as of 09/10/2022) [facility] History of Past illness Narrative* Problem [...] of this encounter (statuses as of 09/11/2022) [facility] History of Past illness Narrative* Problem [...] of this encounter (statuses as of 09/11/2022) [facility] History of Past illness Narrative* Problem [...] Follow-up examination following surgery 10/31/20 03 01/02/2015 [facility] current use of ant icoagulants with INR goal of 2.0-3.0 09/15/2022 Nocturnal hypoxemia 08/29/2022 Overview: On oxygen at night documented as of this encounter (statuses as of 09/17/2022) [facility]08-26-2022 Miscellaneous Notes* Telephone Encounter - Yadira Walsh LPN - 07/04/2022 1:27 PM EDT Pt called back and said that the swelling in his groin/scrotum started 2 days ago Per Hermelinda-pt advised to go to ED [facility] Yadira Walsh LPN * Telephone Encounter [...] ER. Jayashree Farmer APRN.CNP documented in this encounterBrecksville Va / [facility]ille Hospital08-16-2022 Miscellaneous Notes* Telephone Encounter - Jackelin Lopez Ma - 06/24/2022 1:57 PM EDT Received cardiac clearance letter back from Cardiology, Dr. Nunn. Patient has cardiac clearance and is approved to hold Xarelto for 48 hours and asa 81 for 2 days prior to injection. [employer] message sent to notify patient of above. [...] Will generate letter and fax to patient's senior medical director, Dr. Nunn. Patient will also need the ok to hold ASA 81 and Xarelto prior to procedure. Pre-procedure Instructions reviewed over telephone and a list of instructions were sent via [employer]. Patient verbalized understanding with no additional questions or concerns at this time. * Telephone Encounter - Jackelin Lopez Ma - 06/13/2022 4:18 PM EDT Received referral from Laron Fortune PA-C to schedule Lumbar MBB; Bilateral; Level: L4-S1 with Dr. Baljinder Trevizo. Will reach out to schedule within 5 business days. Patient added to procedure scheduling list. documented in this encounterBrecksville Va / [facility]08-02-2022 History of Present illness Narrative* Iram Johnson APRN.PHOTO MASK PATTERN GENERATOR - 06/10/2022 11:20 AM EDT [employer] [facility] Israel Pruitt DO SUBJECTIVE: Srini Luis [...] with ORNELAS-LAD, SVG-RI, SVG-OM, and SVG-RCA in [facility] Hx of colonoscopy 09/27/2015 no reported polyps per patient recollection Hypertension Hypothyroidism [facility] current use of anticoagulants with INR goal [...] RIGHT OP SURGERY Right 12/18/2020 Dr Arre[facility] ARTHROPLASTY TOTAL SHOULDER 11/09/2008 right ARTHROSCOPY OF JOINT UNLISTED Elbow right CABG (4) VEIN GRAFTS & ARTERIAL GRAFT(S) 07/21/2021 In [facility] COLONOSCOPY FLX DX W/COLLJ SPEC WHEN [...] bedtime. New as of May 29 2022 atorvastatin (LIPITOR) 40 mg [...] daily. As per recommendation of the patients art coordinator within the CC in [facility] aspirin, enteric coated (ECOTRIN LOW STRENGTH) 81 [...] current medications. 2. Coronary artery disease involving [place] coronary artery of [place] heart without angina pectoris- ICD9: 414.01, ICD10: [...] care physician. 4. PAF (paroxysmal atrial fibrillation) ([facility]) - ICD9: 427.31, ICD10: I48.0 Patient has a history of post CABG atrial fibrillation. He is maintaining sinus rhythm in the antiarrhythmic drug free state. We will plan to continue same medications and monitor for recurrent atrial fibrillation. 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 Iram Johnson APRN.PHOTO MASK PATTERN GENERATOR documented in this encounterBrecksville Va / [facility]07-29-2022 Miscellaneous Notes* Telephone Encounter - Mary Ann Garcia RN - 06/06/2022 3:17 PM EDT [employer] message has not yet been read. Call to patient to explain that if injections are desired, patient does need to be seen in the office by Laron Fortune PA-C. Transferred to [facility] to schedule. Mary Ann Garcia RN June 06, 2022 3:18 PM documented in this encounterBrecksville Va / [facility]07-27-2022 Miscellaneous Notes* Telephone Encounter - Israel [...] , Israel Pruitt DO documented in this encounterBrecksville Va / [facility]ille Hospital07-27-2022 History of Present illness Narrative* Janet Purdy RT(R) - 06/04/2022 3:45 PM EDTSummary: XRAY [...] 04, 2022 3:52 PM documented in this encounterBrecksville Va / [facility] Hospital07-25-2022 Miscellaneous Notes* Telephone Encounter - Israel Pruitt, DO - 06/02/2022 5:19 PM EDT Please [...] hospital from over the weekend coming from [place] after being discharged there on Thursday The hospitalist physicians let me know that Marcie came in for chest pain. Stress test was normal Chest CT was negative for pulmonary emboli The obvious recommendation would be for the patient to discharge back to [place] but we have had difficulties with discharge [...] tomorrow Israel Pruitt DO documented in this encounterBrecksville Va / [facility]07-21-2022 Instructions* Patient Instructions* Israel Pruitt DO [...] week for 4 to 6 weeks at [facility] to improve gait to reduce the risk [...] stenosis with neurogenic claudication documented in this encounterBrecksville Va / [facility]ille Hospital07-21-2022 History of Present illness Narrative* Israel [...] back pain , saw Dr Fortune in [facility] on May 08 . 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 As per recommendation of the patients art coordinator within the CC in [facility] aspirin, enteric coated (ECOTRIN LOW STRENGTH) 81 [...] which included preparing to see the patient, srqj-al-sjmn patient care, completing clinical documentation, obtaining and/or reviewing separately obtained history, performing a medically appropriate examination, counseling and educating the pat ient/family/caregiver, ordering medications, tests, or procedures, communicating with other HCPs (not separately reported), independently interpreting results (not separately reported), communicatingresults to the patient/family/caregiver and care coordination (not separately reported). Israel Priutt DO * Yadira Walsh LPN - 05/29/2022 2:50 PM EDT Pt is here for a follow up appt with lab review Medication list reviewed Yadira Walsh LPN documented in this encounterBrecksville [facility]07[facility] Miscellaneous Notes* Telephone Encounter - Israel [...] advise. Lena Cruz RN documented in this encounterBrecksville [facility]07-08-2022 Miscellaneous Notes* Telephone Encounter - Jayashree Farmer APRN.MAURICIO - 05/16/2022 5:09 PM EDT Notified patient he is up to date on vaccines. Jayashree Farmer APRN.CNP documented in this encounterBrecksville [facility]06-30-2022 Instructions* Patient Instructions* Laron Fortune PA-C [...] hazy, disoriented, or confused. documented in this encounterBrecksville Va / [facility]06-30-2022 History of Present illness Narrative* Laron Fortune PA-C - 05/08/2022 1:06 PM EDT Images from the original note were not included. Laron Fortune [facility]-C [facility] [address] [address] Dear Israel Pruitt DO, Srini Luis is [...] daily. As per recommendation of the patients art coordinator within the CC in [facility] aspirin, enteric coated (ECOTRIN LOW STRENGTH) 81 [...] today with this patient visit. This includes [id number] time, review of chart records regarding conservative care history, spine- pertinent imaging, and communication/care coordination with referring provider, problem-specific history-taking and counseling/education regarding treatment options. This document has been created with the use of voice recognition technology. It may contain inaccuracies: (e.g. misspellings, inaccurate syntax or word sense) that have escaped review. Amanda Soares documented in this encounterBrecksville [facility]06-09-2022 Miscellaneous Notes* Telephone Encounter - Jayashree [...] patient. Lena Cruz RN documented in this encounterBrecksville [facility]06-03-2022 History of Present illness Narrative* Eyal [...] 40 Eyal Rodrigues PT documented in this encounterBrecksville [facility]05-27-2022 History of Present illness Narrative* Eyal [...] 40 Eyal Rodrigues PT documented in this encounterBrecksville [facility]05-25-2022 Miscellaneous Notes* Telephone Encounter - Lena [...] levels in approximately 6 weeks. Thanks , sIrael Pruitt DO documented in this encounterBrecksville [facility]05-20-2022 History of Present illness Narrative* Eyal Rodrigues, PT - 03/28/2022 10:01 AM EDT Episode [...] 40 Eyal Rodrigues PT documented in this encounterBrecksville [facility]05-16-2022 Miscellaneous Notes* Telephone Encounter - Micaela Longche SILVEIRA - 03/24/2022 3:14 PM EDT Patient [...] can get that here documented in this encounterBrecksville [facility]05-13-2022 History of Present illness Narrative* Guillermina [...] 2019 , severe LCS L2-3 Osteoarthritis, Generalized Fdc Current Use of Anticoagulants With Inr Goal of 2.0-3.0 Nocturnal Hypoxemia Comment: On oxygen at night Pvc's (Premature Ventricular Contractions) Hx of Cabg - 07/10/2021 Comment: 4 vessel CABG Status Post Ligation of Left Atrial Appendage - 07/10/2021 Comment: At time of CABG Paf (Paroxysmal Atrial Fibrillation) ([facility]) - 11/09/2020 Comment: Post CABG atrial fibrillation B12 Deficiency - 07/11/2020 Vitamin D Deficiency - 07/11/2020 Macrocytosis - 07/11/2020 Venous Stasis of Both Lower Extremities - 07/11/2020 Hx of Colonoscopy - 09/27/2015 Comment: no reported polyps per patient recollection S/P Shoulder Replacement - 02/08/2015 Myasthenia Gravis ([facility]) - 04/19/2012 Essential Hypertension, Benign - 01/12/2012 [...] RIGHT OP SURGERY Right 12/18/2020 Dr Arreola [facility] ARTHROPLASTY TOTAL SHOULDER 11/09/2008 right ARTHROSCOPY OF JOINT UNLISTED Elbow right CABG (4) VEIN GRAFTS & ARTERIAL GRAFT(S) 07/21/2021 In [facility] COLONOSCOPY FLX DX W/COLLJ SPEC WHEN [...] daily. As per recommendation of the patients art coordinator within the CC in [facility] aspirin, enteric coated (ECOTRIN LOW STRENGTH) 81 [...] ICD10: I10 - fair control Guillermina Cummings APRN.MAURICIO I spent a total of 10 minutes on the date of the service which included preparing to see the patient, [id number] patient care, completing clinical documentation, obtaining and/or reviewing separately obtained history and performing a medically appropriate examination. Follow Up Plans: Pending labs, follow up arranged with pcp documented in this encounterBrecksville [facility]05-13-2022 History of Present illness Narrative* Sanket [...] Care: created on 03/21/22 through 05/20/22 1. Jamul in home exercise program. 2. Patient will [...] Planned: 8 Planned Treatment Interventions: Therapeutic exercise (02584);Neuromuscular re- education (55783);Manual therapy (55197);Therapeutic activities (28645);Self- group home management (41236);Patient/Family/Caregiver Education;Functional training;General Conditioning PLAN FOR NEXT VISIT: [...] low back pain. 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, 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 Current Use of Anticoagulants With Inr Goal of 2.0-3.0 Nocturnal Hypoxemia Comment: On oxygen at night Pvc's (Premature Ventricular Contractions) Hx of Cabg - 07/10/2021 Comment: 4 vessel CABG Status Post Ligation of Left Atrial Appendage - 07/10/2021 Comment: At time of CABG Paf (Paroxysmal Atrial Fibrillation) ([facility]) - 11/09/2020 Comment: Post CABG atrial fibrillation B12 Deficiency - 07/11/2020 Vitamin D Deficiency - 07/11/2020 Macrocytosis - 07/11/2020 Venous Stasis of Both Lower Extremities - 07/11/2020 Hx of Colonoscopy - 09/27/2015 Comment: no reported polyps per patient recollection S/P Shoulder Replacement - 02/08/2015 Myasthenia Gravis ([facility]) - 04/19/2012 Essential Hypertension, Benign - 01/12/2012 Back Pain - 01/09/2012 Insomnia - 08/13/2010 Erectile Dysfunction - 08/13/2010 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 shoulder Generalized Osteoarthrosis, Unspecified Site - 06/05/2006 Comment: RALFHenrietta LANGSTON Mixed Hyperlipidemia - 07/04/2005 Hypothyroidism - 07/04/2005 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 - 09/21/2003 ROS: See HPI. Severe low back with ambulation, alleviated with sitting. Denies chest pains. States sob, that seems to occur with walking, but in the setting of severe back pains. PAST SURGICAL HISTORY Procedure Laterality Date ANKLE RIGHT OP SURGERY Right 12/18/2020 Dr Elba Sherman [facility] ARTHROPLASTY TOTAL SHOULDER 11/09/2008 right ARTHROSCOPY OF JOINT UNLISTED Elbow right CABG (4) VEIN GRAFTS & ARTERIAL GRAFT(S) 07/21/2021 In [facility] COLONOSCOPY FLX DX W/COLLJ SPEC WHEN [...] daily. As per recommendation of the patients art coordinator within the CC in [facility] aspirin, enteric coated (ECOTRIN LOW STRENGTH) 81 [...] which included preparing to see the patient, [id number] patient care, completing clinical documentation, obtaining and/or reviewing separately obtained history and counseling and educating the patient/family/caregiver. Follow Up Plans: Pending his need for consultations arranged. documented in this encounterBrecksville [facility]04-14-2022 Miscellaneous Notes* Telephone Encounter - Yadira Walsh LPN - 02/20/2022 5:48 PM EDT Pt notified that a new RX was sent on 01-20-22 to [facility]\ will call and get that sent Yadira Jillian PARK documented in this encounterBrecksville [facility]04-14-2022 Miscellaneous Notes* Telephone Encounter - Micaela SILVEIRA - 02/20/2022 5:10 PM EDT Error documented in this encounterBrecksville Va / [facility]04-11-2022 Miscellaneous Notes* Telephone Encounter - Israel [...] PRUITT DO * Telephone Encounter - Micaela Belkys SILVEIRA - 02/17/2022 11:46 AM EDT Pharmacy electronically requesting refills as follows: Pending Prescriptions Disp Refills FEROSUL 325 MG (65 MG IRON) TABLET 60 tablet 3 Sig: TAKE 1 TABLET BY MOUTH TWICE DAILY WITH MEALS. DO NOT TAKE WITHIN 2 HOURS OF COUMADIN OR SYNTHROID. MARY: Yes Please review and advise. Micaela SILVEIRA documented in this encounterBrecksville Va [facility]04-04-2022 Miscellaneous Notes* Telephone Encounter - Guillermina Cummings APRN.MAURICIO - 02/10/2022 9:59 AM EDT The following approved medication requests have been transmitted electronically. Signed Prescriptions Disp Refills ferrous sulfate 325 mg (65 mg iron) tablet 60 tablet 11 Sig: Take 1 tablet by mouth twice daily with meals. Do not take within 2 hours of Coumadin or Synthroid. MARY: No Guillermina Cummings APRN.PHOTO MASK PATTERN GENERATOR * Telephone Encounter - Micaela SILVEIRA - 02/10/2022 8:26 AM EDT Pending Prescriptions Disp Refills FERROUS SULFATE 325 MG (65 MG IRON) TABLET 60 tablet 3 Sig: Take 1 tablet by mouth twice daily with meals. Do not take within 2 hours of Coumadin or Synthroid. MARY: No Micaela SILVEIRA documented in this encounterBrecksville [facility]04-04-2022 Miscellaneous Notes* Telephone Encounter - Pavan Bell - 02/10/2022 8:48 AM EDT Spoke with patient he stated he will call back once he figures out if he needs an appointment for paperwork from [place]. documented in this encounterBrecksville [facility]02-05-2013 History of Past illness Narrative* Problem [...] of this encounter (statuses as of 02/10/2022) [facility] Narrative* Problem [...] of this encounter (statuses as of 02/10/2022) [facility] Narrative* Problem [...] of this encounter (statuses as of 02/17/2022) [facility] Narrative* Problem [...] of this encounter (statuses as of 02/20/2022) [facility] Narrative* Problem [...] of this encounter (statuses as of 02/20/2022) [facility] Narrative* Problem [...] of this encounter (statuses as of 02/27/2022) [facility] Narrative* Problem [...] of this encounter (statuses as of 03/13/2022) [facility] Narrative* Problem [...] of this encounter (statuses as of 03/18/2022) [facility] Narrative* Problem [...] of this encounter (statuses as of 03/21/2022) [facility] Narrative* Problem [...] of this encounter (statuses as of 03/21/2022) [facility] Narrative* Problem [...] of this encounter (statuses as of 03/24/2022) [facility] Narrative* Problem [...] of this encounter (statuses as of 03/28/2022) [facility] Narrative* Problem [...] of this encounter (statuses as of 04/02/2022) [facility] Narrative* Problem [...] of this encounter (statuses as of 04/04/2022) [facility] Narrative* Problem [...] of this encounter (statuses as of 04/11/2022) [facility] Narrative* Problem [...] of this encounter (statuses as of 04/17/2022) [facility] Narrative* Problem [...] of this encounter (statuses as of 05/08/2022) [facility] Narrative* Problem [...] of this encounter (statuses as of 05/16/2022) [facility] Narrative* Problem [...] of this encounter (statuses as of 05/26/2022) [facility] Narrative* Problem [...] of this encounter (statuses as of 05/27/2022) [facility] Narrative* Problem [...] of this encounter (statuses as of 05/29/2022) [facility] Narrative* Problem [...] of this encounter (statuses as of 05/30/2022) [facility] Narrative* Problem [...] of this encounter (statuses as of 06/02/2022) [facility] Narrative* Problem [...] of this encounter (statuses as of 06/04/2022) [facility] Narrative* Problem [...] of this encounter (statuses as of 06/05/2022) [facility] Narrative* Problem [...] of this encounter (statuses as of 06/06/2022) [facility] Narrative* Problem [...] of this encounter (statuses as of 06/10/2022) [facility] Narrative* Problem [...] of this encounter (statuses as of 06/24/2022) [facility] Narrative* Problem [...] of this encounter (statuses as of 07/03/2022) [facility] Narrative* Problem [...] of this encounter (statuses as of 07/04/2022) [facility] Narrative* Problem [...] of this encounter (statuses as of 07/09/2022) [facility] Narrative* Problem [...] of this encounter (statuses as of 07/10/2022) [facility] Narrative* Problem [...] of this encounter (statuses as of 07/11/2022) [facility] Narrative* Problem [...] of this encounter (statuses as of 07/17/2022) [facility] Narrative* Problem [...] of this encounter (statuses as of 07/22/2022) [facility] Narrative* Problem [...] of this encounter (statuses as of 07/24/2022) [facility] Narrative* Problem [...] of this encounter (statuses as of 07/25/2022) [facility] Narrative* Problem [...] of this encounter (statuses as of 08/05/2022) [facility] Narrative* Problem [...] of this encounter (statuses as of 08/07/2022) [facility] Narrative* Problem [...] of this encounter (statuses as of 08/14/2022) [facility] Narrative* Problem [...] of this encounter (statuses as of 08/22/2022) [facility] HospitalConsult note Author Homer Marsh [facility] May 18, 2023 3:08pm Note Date/Time May 18, 2023 3:[address] [facility] Medical Records Department [address] [address] Consultation - Infectious Dx 05/18/23 1503 MR#: [id number] Acct: [id number] Name: SRINI LUIS Rep #:[id number] : 1935 87 From: Homer pablo MD PCP: Hamzah Pruitt Status:ADM IN Location: [place] [address] Assessment & Plan Assessment/Plan (1) Bacteremia due [...] performed and neg except as noted above. [facility] Medical History (Updated 05/18/23 @ 15:07 by [...] 80.3 H, Lymph % (Auto) 11.3 L, Ward % (Auto) 4.2, Eos % (Auto) 1.9, [...] Dr. Homer Marsh MD; Hamzah Pruitt~ Signed [facility] Work Phone: Discharge summary Author Marshal Rebolledo [facility] Note Date/Time June 26, 2025 10 :41am [facility] Medical Records Department [address] [place] [address] Instructions for Home/Discharge Instructions 06/26/25 1033 MR#: [id number] Acct: [id number] Name: SRINI LUIS Rep #:[id number] : 1935 89 From: Marshal Nuñez PCP: Dr. Ronaldo Pleitez MD Status:A DM IN Discharge Instructions DC O2, CPAP, BIPAP needs Home O2 Discharge instructions: No Dressing / Incision Discharge Activity: Return to Normal Activity Weight [...] if applicable. Discharge Plan Admission Admit Date/Time: 06/23/25 16:21 Primary Reason for Your Visit: cellulitis, B/L, Left>Right Attending Provider: Marshal Rebolledo Primary Care Provider: Ronaldo Pleitez Consulting Providers: aMry Prather Discharge Orders/Prescriptions Prescriptions: New sennosides-docusate sodium [Stimulant Laxative Plus] 8.6-50 mg Tablet 2 tab PO BID PRN PRN (Reason: Constipation) Qty: 0 0RF amoxicillin-pot clavulanate 875-125 mg tablet 1 tab PO BID 5 Days Qty: 10 0RF potassium chloride 20 mEq Tablet,Er Particles/Crystals 40 meq PO BIDCM 30 Days Qty: 120 0RF Continued cyanocobalamin (vitamin B-12) 1,000 mcg capsule 1,000 mcg PO DAILY cholecalciferol (vitamin D3) 25 mcg (1,000 unit) tablet 25 mcg PO DAILY multivitamin Tablet 1 tab PO DAILY Xarelto 20 mg tablet 20 mg PO QPM Rx Instructions: must administer with evening meal atorvastatin 20 mg tablet 20 mg PO QHS folic acid 1 mg Tablet 1 mg PO BREAKFAST 30 Days Qty: 30 2RF polyethylene glycol 3350 [Miralax] 17 gram/dose powder 17 g PO DAILY PRN (Reason: constipation) Qty: 238 0RF levothyroxine [Synthroid] 100 mcg tablet 100 mcg PO DAILY nitroglycerin 0.4 mg tablet, sublingual 0.4 mg sublingual Q5M Rx Instructions: do not exceed 3 doses per episode Changed furosemide 40 mg tablet 40 mg PO BID 30 Days Qty: 0 0RF Rx Instructions: TAKE 1 TABLET TWO TIMES A DAY. AM AND NOON Discontinued cephalexin 500 mg capsule 500 mg PO Q8H 5 Days Qty: 15 0RF Referrals / Follow Up: Ronaldo Pleitez MD [Primary Care Provider] - Within 1 Week (Need BMP in 1 weekfor hypokalemia and adjust Kcl accordingly) 06/26/25 1041<Electronically signed by Marshal Rebolledo MD>Marshal Rebolledo MD CC: Dr. Mary Prather MD; Dr. Ronaldo Pleitez MD ~ Signed [facility] Work Phone: Discharge summary Author Marshal Rebolledo [facility] Note Date/Time June 26, 2025 11 :30[facility] Medical Records Department [address] [place] [address] Discharge Summary 06/26/25 1041 MR#: [id number] Acct: [id number] Name: SRINI LUIS Rep #:[id number] : 1935 89 From: Marshal Nuñez PCP: Dr. Ronaldo Pleitez MD Status:A DM IN Location: MS3 IN669-5 Providers Date of Admission: 06/23/25 Date of Discharge: 06/26/25 Primary Care Physician: Dr. Ronaldo Pleitez MD Reason For Visit: LEFT LOWER EXTREMITY CELLULITIS Diagnosis Discharge Diagnosis (1) Cellulitis of left leg: Status: Acute Code(s): L03.116 - Cellulitis of left lower limb Plan Patient was admitted with left lower extremity swelling, pain, induration which has failed outpatient treatment therefore admitted for IV antibiotic. Patient was admitted with ER with increased left lower extremity swelling, redness pain started from ankle and progressed proximally for 1 week. No fever. Patient also had blister and dorsum of left foot which has ruptured spontaneously. He failed outpatient treatment for cellulitis # Left lower extremity cellulitis - Failed outpatient management with oral antibiotics. No leukocytosis. - Will treat with IV Unasyn, no evidence of any purulence and patient does not have known history of diabetes so feel that this would be sufficient coverage atthis time - Elevate extremity, Citlalli wrap bandage Patient had venous duplex on 06/19 as an outpatient which did not show superficial or DVT in the left lower extremity. It shows nonvascular anechoic left popliteal fossa cyst 6.01 x 1.41 stable popliteal cyst. 06/25 continue antibiotic. Cellulitis is improving. Home health PT prescriptionsigned. Anticipate discharge tomorrow 06/26: Discharged on 5 more days of Augmentin. Had 3.5 days of IV antibiotics #Hx of CAD -w/ previous CABG -Continue [...] baseline closer to 1 -Avoid nephrotoxic agents -Repeat labs shows BUN/creatinine 37/1.37, slight decrease from admitting creatinine. Does not meet criteria for DANE. 06/26: Kidney function is on baseline. BUN/furosemide 40 mg p.o. twice daily andmetolazone. History. Potassium supplement at home but not. Discharged on KCl 40 mEq twice daily and advised to follow with PCP, JOVANY in 1 week # History of CVA - Continue home medications - Heart healthy diet #Paroxysmal Atrial Fibrillation - Continue Xarelto #Hypothyroidism -Continue Synthroid #DVT ppx: Patient already on full dose anticoagulation with Xarelto Discharge medication reconciliation done. Discharge follow-up instructions completed. Discharge process discussed with the patient and all questions wereanswered to patient's satisfaction. Follow with PCP in 1 to 2 weeks Total time spent, exact 35 minutes on discharge meds reconciliation, examination, coordination of care with nurses and ancillary staff, review of imaging and blood test and discussion with the patient on follow-up instructions. 06/23/25 14:23: WBC 6.8, RBC 2.65 L, Hgb 9.7 L, Hct 29.5 L, MCV 111.3 H, MCH 36.6 H, MCHC 32.9, RDW Std Deviation 109.9 H, RDW Coeff of Luis Alberto 26.7 H, Plt [id number], MPV 10.6, Immature Gran % (Auto) 0.300, Neut % (Auto) 68.2, Lymph % (Auto) 14.5 L, Ward % (Auto) 15.5 H, Eos % (Auto) 0.9, Baso % (Auto) 0.6, Absolute Neuts (auto) 4.7, Absolute Lymphs (auto) 0.99, Nucleated RBC % 0.7, DifferentialComment SCANNED, Platelet Estimate ADEQUATE, Polychromasia 1+, Hypochromasia 1+,Anisocytosis 2+, Sodium 138, Potassium 3.3, Chloride 92 L, Carbon Dioxide 32.5 H, Anion Gap 13, BUN 41 H, Creatinine 1.43 H, Estim Creat Clear Calc 36.06 L, Est GFR (MDRD) Non-Af 47 L, BUN/Creatinine Ratio 28.4 H, Glucose 160 H, Calcium 9.0 06/24/25 05:50: WBC 6.9, RBC 2.59 L, Hgb 9.3 L, Hct 28.6 L, MCV 110.4 H, MCH 35.9 H, MCHC 32.5, RDW Std Deviation 108.7 H, RDW Coeff of Luis Alberto 26.6 H, Plt [id number], MPV 11.1, Immature Gran % (Auto) 0.400, Neut % (Auto) 69.2, Lymph % (Auto) 12.5 L, Ward % (Auto) 15.6 H, Eos % (Auto) 1.7, Baso % (Auto) 0.6, Absolute Neuts (auto) 4.7, Absolute Lymphs (auto) 0.86, Nucleated RBC % 0.9, DifferentialComment SCANNED, Hypochromasia 1+, Anisocytosis 2+, Sodium 138, Potassium 3.0 L, Chloride 94 L, Carbon Dioxide 31.4, Anion Gap 13, BUN 37 H, Creatinine 1.37 H, Estim Creat Clear Calc 36.30 L, Est GFR (MDRD) Non-Af 49 L, BUN/Creatinine Ratio 27.3 H, Glucose 119 H, Calcium 8.7 Medications at Discharge Home Medications cholecalciferol (vitamin D3) 25 mcg (1,000 unit) tablet 25 mcg PO DAILY 04/09/23 cyanocobalamin (vitamin B-12) 1,000 mcg capsule 1,000 mcg PO DAILY 04/09/23 multivitamin 1 tab PO DAILY 04/09/23 rivaroxaban 20 mg tablet (Xarelto) 20 mg PO QPM 04/09/23 atorvastatin 20 mg tablet 20 mg PO QHS 05/14/23 folic acid 1 mg tablet 1 mg PO BREAKFAST 30 days #30 tabs 05/18/23 polyethylene glycol 3350 17 gram/dose oral powder (Miralax) 17 g PO DAILY PRN constipation #238 grams 05/20/23 levothyroxine 100 mcg tablet (Synthroid) 100 mcg PO DAILY 06/18/25 nitroglycerin 0.4 mg sublingual tablet 0.4 mg sublingual Q5M 06/23/25 amoxicillin 875 mg-potassium clavulanate 125 mg tablet 1 tab PO BID 5 days #10 tabs 06/26/25 furosemide 40 mg tablet 40 mg PO BID 30 days #0 tabs 06/26/25 potassium chloride 20 mEq tablet,extended release(part/cryst) 40 meq (2 x 20 mEq) PO BIDCM 30 days #120 tabs 06/26/25 sennosides 8.6 mg-docusate sodium 50 mg tablet (Stimulant Laxative Plus) 2 tab PO BID PRN PRN Constipation #0 tabs 06/26/25 Physical Exam Narrative Seen and examined Patient is moving bowel. Redness and swelling of lower extremities looks better. Wants to go home. Physical exam General: Alert, Oriented x3, Cooperative HEENT: Atraumatic, PERRLA, EOMI, Normocephalic. Oral: No Gingival or Mucosal Lesions/ Ulcerations Neck: Supple, No JVD, Negative Carotid Bruits Chest wall/Lungs: Air entry diminished in bilateral lung bases. No crepitation/rhonchi Cardiovascular: Sinus irregular rhythm, PVCs systolic murmur Abdomen: Bowel Sounds Present, Soft, Non Tender, Non-Distended : No dysuria. No renal angle tenderness. No suprapubic tenderness. Extremities: No edema, Capillary Refill Less than 3 Seconds Skin: Ruptured blister on dorsum of left foot. No obvious ulcer Musculoskeletal: Redness, tenderness erythema and swelling of both lower legs have improved. No tenderness or drainage Neurological: Cranial nerves II-XII grossly intact, DTR 2+/4. No acute focal neurological deficit. Psych/Mental Status: Flat affect Weight / BMI Weight Weight: 176 lb Body Mass Index (BMI) 28.4 ABG / Lab / Microbiology Data 06/24/25 05:50 06/26/25 04:43 Laboratory: Laboratory Results - last 24 hr 06/26/25 04:43: Sodium 138, Potassium 3.2 L, Chloride 95 L, Carbon Dioxide 32.3 H, Anion Gap 12, BUN 38 H, Creatinine 1.29 H, Estim Creat Clear Calc 38.55 L, Est GFR (MDRD) Non-Af 53 L, BUN/Creatinine Ratio 29.5 H, Glucose 99, Calcium 8.7,Phosphorus 3.9, Magnesium 2.1 D/C Instructions Weight Bearing Status: Weight bearing as tolerated Call your doctor if you observe: Fever of 101 or Higher, Coldness, Increased Pain, Numbness or Tingling, Change in Color, Inability to urinate, Inability to have a bowel movement, Shortness of breath, Dizziness, Fainting spells, Swellingin the ankles, Chest pain, Prolonged hiccupping, Increased palpitations (irregular heartbeat) and Calf discomfort DC O2, CPAP, BIPAP Needs Home O2 Discharge instructions: No When: IN 2 WEEKS Meaningful Use Info Meaningful Use Meaningful Use Diagnoses (Choose all that apply): None applicable Discharge Plan Admission Admit Date/Time: 06/23/25 16:21 Primary Reason for Your Visit: cellulitis, B/L, Left>Right Attending Provider: Marshal Rebolledo Primary Care Provider: Ronaldo Pleitez Consulting Providers: Mary Prather Discharge Orders/Prescriptions Prescriptions: New sennosides-docusate sodium [Stimulant Laxative Plus] 8.6-50 mg Tablet 2 tab PO BID PRN PRN (Reason: Constipation) Qty: 0 0RF amoxicillin-pot clavulanate 875-125 mg tablet 1 tab PO BID 5 Days Qty: 10 0RF potassium chloride 20 mEq Tablet,Er Particles/Crystals 40 meq PO BIDCM 30 Days Qty: 120 0RF Continued cyanocobalamin (vitamin B-12) 1,000 mcg capsule 1,000 mcg PO DAILY cholecalciferol (vitamin D3) 25 mcg (1,000 unit) tablet 25 mcg PO DAILY multivitamin Tablet 1 tab PO DAILY Xarelto 20 mg tablet 20 mg PO QPM Rx Instructions: must administer with evening meal atorvastatin 20 mg tablet 20 mg PO QHS folic acid 1 mg Tablet 1 mg PO BREAKFAST 30 Days Qty: 30 2RF polyethylene glycol 3350 [Miralax] 17 gram/dose powder 17 g PO DAILY PRN (Reason: constipation) Qty: 238 0RF levothyroxine [Synthroid] 100 mcg tablet 100 mcg PO DAILY nitroglycerin 0.4 mg tablet, sublingual 0.4 mg sublingual Q5M Rx Instructions: do not exceed 3 doses per episode Changed furosemide 40 mg tablet 40 mg PO BID 30 Days Qty: 0 0RF Rx Instructions: TAKE 1 TABLET TWO TIMES A DAY. AM AND NOON Discontinued cephalexin 500 mg capsule 500 mg PO Q8H 5 Days Qty: 15 0RF Referrals / Follow Up: Ronaldo Pleitez MD [Primary Care Provider] - Within 1 Week (Need BMP in 1 weekfor hypokalemia and adjust Kcl accordingly) Disposition Disposition (needs filled in before D/C Order can be placed): Home Health Service Charges/Coding Visit Charges Inpatient E&M: 15639 Disch Hosp >30min 06/26/25 1130 <Electronically signed by Marshal Rebolledo MD> Cosigner Signature (if applicable): CC: Dr. Marshal Rebolledo MD; Dr. Ronaldo Pleitez MD~ Signed [facility] Work Phone: Evaluation note* Diagnosis Chronic midline low back pain without sciatica- Primary Spinal stenosis of lumbar region with neurogenic claudication Spinal stenosis, lumbar region, with neurogenic claudication [facility] Spinal stenosis of lumbar region with neurogenic claudication Spinal stenosis, lumbar region, with neurogenic claudication [facility] Diagnosis Anemia, unspecified type- Primary [...] Slow transit constipation [facility] Diagnosis Chronic bilateral low back pain without sciatica- Primary Spinal stenosis of lumbar region with neurogenic claudication Spinal stenosis, lumbar region, with neurogenic claudication [facility] Diagnosis Leg swelling- Primary Swelling [...] deficiency anemia, unspecified [facility] Diagnosis Spinal stenosis of lumbar region with neurogenic claudication- Primary Spinal stenosis, lumbar region, with neurogenic claudication Chronic bilateral low back pain without sciatica [facility] Diagnosis Spinal stenosis of lumbar region with neurogenic claudication- Primary Spinal stenosis, lumbar region, with neurogenic claudication Chronic bilateral low back pain without sciatica [facility] Diagnosis Spinal stenosis of lumbar region with neurogenic claudication Spinal stenosis, lumbar region, with neurogenic claudication [facility] Diagnosis Pes anserine bursitis- Primary Pes anserinus tendinitis or bursitis Acute pain of right knee Primary insomnia Persistent disorder of initiating or maintaining sleep Spinal stenosis of lumbar region with neurogenic claudication Spinal stenosis, lumbar region, with neurogenic claudication Paroxysmal atrial fibrillation (HCC) Atrial fibrillation Essential hypertension, benign [facility] Diagnosis Pes anserine bursitis Pes anserinus tendinitis or bursitis Acute pain of right knee [facility] Diagnosis Benign hypertension- Primary Essential hypertension, benign Coronary artery disease involving [place] coronary artery of [place] heart without angina pectoris Mixed hyperlipidemia PAF (paroxysmal atrial fibrillation) (HCC) 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 with INR goal of 2.0-3.0 Long-term (current) use of anticoagulants RBBB Right bundle branch block PVC's (premature ventricular contractions) Other premature beats [facility] Diagnosis Spinal stenosis of lumbar region with neurogenic claudication- Primary Spinal stenosis, lumbar region, with neurogenic claudication Arthropathy of lumbar facet joint Lumbosacral spondylosis without myelopathy [facility] Diagnosis Chronic heart failure with preserved ejection fraction (HCC)- Primary Spinal stenosis of lumbar region with neurogenic claudication Spinal stenosis, lumbar region, with neurogenic claudication Arthropathy of lumbar facet joint Lumbosacral spondylosis without myelopathy [facility] Diagnosis Spinal stenosis of lumbar [...] spondylosis without myelopathy [facility] Diagnosis CHF (congestive heart failure), NYHA class I, acute on chronic, diastolic (HCC)- Primary [facility] Diagnosis Cerebrovascular accident (CVA), unspecified mechanism (HCC)- Primary Primary hypertension Unspecified essential hypertension Atrial fibrillation, unspecified type ([facility]) 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 Long-term (current) use of anticoagulants [facility] Diagnosis 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HCC)- Primary [...] of cerebrovascular disease [facility] Diagnosis Complete heart block (HCC)- Primary [...] Ankle edema, bilateral [facility] Diagnosis Pacemaker- Primary Cardiac pacemaker in situ PAF (paroxysmal atrial fibrillation) ([facility]) Atrial fibrillation [facility] Diagnosis Impending cerebrovascular accident (HCC)- Primary Unspecified transient cerebral ischemia Cerebral artery occlusion with cerebral infarction (HCC) Unspecified cerebral artery occlusion with cerebral infarction Numbness in cervical dermatome distribution Disturbance of skin sensation Paresthesia Disturbance of skin sensation [facility] Diagnosis Macrocytic anemia- Primary Unspecified deficiency anemia Macrocytic anemia Unspecified deficiency anemia [facility] Diagnosis Chronic heart failure with preserved [...] Essential hypertension, benign Coronary artery disease involving [place] coronary artery of [place] heart without angina pectoris Mixed hyperlipidemia PAF (paroxysmal atrial fibrillation) (HCC) Atrial fibrillation Pacemaker Cardiac pacemaker in situ CHB (complete heart block) (HCC) Atrioventricular block, complete 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 Long-term (current) use of anticoagulants [facility] Diagnosis 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 Chronic myeloid leukemia, without mention of having achieved remission Benign hypertension- Primary Essential hypertension, benign Coronary artery disease involving [place] coronary artery of [place] heart without angina pectoris Mixed hyperlipidemia PAF (paroxysmal atrial fibrillation) (HCC) Atrial fibrillation Pacemaker Cardiac pacemaker in situ CHB (complete heart block) (HCC) Atrioventricular block, complete 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 Long-term (current) use of anticoagulants [facility] Diagnosis 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 Chronic myeloid leukemia, without mention of having achieved remission [facility] Diagnosis Benign hypertension- Primary Essential hypertension, benign Coronary artery disease involving [place] coronary artery of [place] heart without angina pectoris Mixed hyperlipidemia PAF (paroxysmal atrial fibrillation) (HCC) Atrial fibrillation Pacemaker Cardiac pacemaker in situ CHB (complete heart block) (HCC) Atrioventricular block, complete 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 Long-term (current) use [...] Antibody response examination [facility] Diagnosis 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 Chronic myeloid leukemia, without mention of having achieved remission [facility] Diagnosis MDS (myelodysplastic syndrome) (HCC)- Primary Myelodysplastic syndrome, unspecified DVT of axillary vein, 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 [facility] Diagnosis Onset Date Resolution Status Feared condition not demonstrated acute Acquired immunocompromised state acute Cellulitis of right lower leg acute Complete heart block acute Coronary artery disease 2021 acut e Hypoxemia acute Pacemaker 2021 acute Sepsis acute CMML (chronic myelomonocytic leukemia) [facility] Work Phone: Evaluation note* Diagnosis 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 Chronic myeloid leukemia, without mention of having achieved remission Right leg pain Pain in limb [facility] Diagnosis Onset Date Resolution Status Feared condition not demonstrated acute Acquired immunocompromised state acute Bacteremia due to Gram-negative bacteria acute Cellulitis of right lower leg acute Complete heart block acute Coronary artery disease 2021 acut e Hypoxemia acute Pacemaker 2021 acute Sepsis acute CMML (chronic myelomonocytic leukemia) [facility] Work Phone: Evaluation note* Diagnosis Gram-negative bacteremia- Primary Bacteremia Cellulitis of right lower extremity Cellulitis and abscess of leg, except foot Acute on chronic diastolic congestive heart failure (HCC) Acute on chronic diastolic heart failure Venous stasis of both lower extremities PAF (paroxysmal atrial fibrillation) ([facility]) Atrial fibrillation Essential hypertension, benign 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) Chronic myeloid leukemia, without mention of having achieved remission Constipation due to slow transit Slow transit constipation 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 Acute deep vein thrombosis (DVT) of non-extremity vein [facility] Diagnosis Lymphedema of both lower extremities- Primary Chronic heart failure with preserved ejection fraction (HCC) PAF (paroxysmal atrial fibrillation) (HCC) Atrial fibrillation Coronary artery disease involving [place] coronary artery of [place] heart without angina pectoris 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) Chronic myeloid leukemia, without mention of having achieved remission History of bacteremia Personal history of other infectious and parasitic disease Generalized osteoarthrosis Generalized osteoarthrosis, unspecified site [facility] Diagnosis Onset Date Resolution Status Feared condition not demonstrated acute Acquired immunocompromised state acute Bacteremia due to Gram-negative bacteria acute Coronary artery disease 2021 acut e Hypoxemia acute Pacemaker 2021 acute Sepsis acute CMML (chronic myelomonocytic leukemia) chronic Cellulitis of right lower leg resolved [facility] Work Phone: Evaluation note* Diagnosis Chronic atrial fibrillation (HCC)- Primary Atrial fibrillation Benign hypertension Essential hypertension, benign Coronary artery disease involving [place] coronary artery of [place] heart without angina pectoris Mixed hyperlipidemia [facility] current use of anticoagulant Long-term (current) use of anticoagulants Pacemaker Cardiac pacemaker in situ CHB (complete heart block) (HCC) Atrioventricular block, complete PVC's (premature ventricular contractions) Other premature beats [facility] Diagnosis Encounter for care of pacemaker- Primary [facility] Diagnosis Lymphedema of both lower extremities- Primary Chronic heart failure with preserved ejection fraction (HCC) Encounter for immunization Need for other specified prophylactic vaccination against single bacterial disease [facility] Diagnosis Lymphedema of both lower extremities Chronic heart failure with preserved ejection fraction (HCC) [facility] Acute [facility] Diagnosis Unstable gait Abnormality of gait Postural dizziness Dizziness and giddiness Confusion and disorientation Diplopia [facility] Diagnosis 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 Chronic myeloid leukemia, without mention of having achieved remission MDS (myelodysplastic syndrome) (HCC) Myelodysplastic syndrome, unspecified [facility] Diagnosis Lymphedema of both lower extremities Chronic heart failure with preserved ejection fraction (HCC) [facility] Diagnosis Lymphedema of both lower extremities Chronic heart failure with preserved ejection fraction (HCC) Hypothyroidism, unspecified type [facility] Diagnosis Right elbow pain- Primary Pain in joint, upper arm Monoarthritis of elbow, right [facility] Diagnosis 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 Chronic myeloid leukemia, without mention of having achieved remission MDS (myelodysplastic syndrome) (HCC) Myelodysplastic syndrome, unspecified [facility] Diagnosis Chronic myelomonocytic leukemia not having [...] Essential hypertension, benign Coronary artery disease involving [place] coronary artery of [place] heart without angina pectoris Mixed hyperlipidemia Pacemaker Cardiac pacemaker in situ CHB (complete heart block) (HCC) Atrioventricular block, complete Chronic atrial fibrillation (HCC) Atrial fibrillation 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 Long-term (current) use of anticoagulants [facility] Diagnosis Benign hypertension- Primary Essential hypertension, benign Coronary artery disease involving [place] coronary artery of [place] heart without angina pectoris Mixed hyperlipidemia Pacemaker Cardiac pacemaker in situ CHB (complete heart block) (HCC) Atrioventricular block, complete Chronic atrial fibrillation (HCC) Atrial fibrillation [facility] current use of anticoagulant Long-term (current) use [...] Abnormal chest sounds [facility] Diagnosis 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 Chronic myeloid leukemia, without mention of having achieved remission History of anemia Personal history of diseases of blood and blood-forming organs [facility] Diagnosis Benign hypertension- Primary Essential hypertension, benign Coronary artery disease involving [place] coronary artery of [place] heart without angina pectoris Mixed hyperlipidemia Pacemaker Cardiac pacemaker in situ CHB (complete heart block) (HCC) Atrioventricular block, complete Chronic atrial fibrillation (HCC) Atrial fibrillation [facility] current use of anticoagulant Long-term (current) use [...] Shortness of breath [facility] Diagnosis Encounter for care of pacemaker- Primary [facility] Diagnosis Chronic atrial fibrillation (HCC)- Primary Atrial fibrillation [facility] Diagnosis 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 Chronic myeloid leukemia, without mention of having achieved remission Macrocytic anemia Unspecified deficiency anemia [facility] Diagnosis 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) Chronic myeloid leukemia, without mention of having achieved remission MDS (myelodysplastic syndrome) (HCC) Myelodysplastic syndrome, unspecified [facility] Diagnosis 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) Chronic myeloid leukemia, without mention of having achieved remission MDS (myelodysplastic syndrome) (HCC) Myelodysplastic syndrome, unspecified [facility] Diagnosis 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) Chronic myeloid leukemia, without mention of having achieved remission MDS (myelodysplastic syndrome) (HCC) Myelodysplastic syndrome, unspecified [facility] Diagnosis Mixed hyperlipidemia Hypothyroidism, unspecified type [facility] Diagnosis Anemia due to chronic [...] Myelodysplastic syndrome, unspecified [facility] Diagnosis 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) Chronic myeloid leukemia, without mention of having achieved remission MDS (myelodysplastic syndrome) (HCC) Myelodysplastic syndrome, unspecified [facility] Diagnosis 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) Chronic myeloid leukemia, without mention of having achieved remission MDS (myelodysplastic syndrome) (HCC) Myelodysplastic syndrome, unspecified [facility] Diagnosis Lymphedema of right lower extremity- Primary Lymphedema of both lower extremities Pacemaker reprogramming/check Fitting and adjustment of cardiac pacemaker Benign hypertension- Primary Essential hypertension, benign Coronary artery disease involving [place] coronary artery of [place] heart without angina pectoris Mixed hyperlipidemia Pacemaker Cardiac pacemaker in situ CHB (complete heart block) (HCC) Atrioventricular block, complete Chronic atrial fibrillation (HCC) Atrial fibrillation [facility] current use of anticoagulant Long-term (current) use of anticoagulants [facility] Lymphedema of right lower extremity- Primary Pacemaker reprogramming/check Fitting and adjustment of cardiac pacemaker Benign hypertension- Primary Essential hypertension, benign Coronary artery disease involving [place] coronary artery of [place] heart without angina pectoris Mixed hyperlipidemia Pacemaker Cardiac pacemaker in situ CHB (complete heart block) (HCC) Atrioventricular block, complete Chronic atrial fibrillation (HCC) Atrial fibrillation [facility] current use of anticoagulant Long-term (current) use of anticoagulants [facility] Diagnosis Benign hypertension- Primary Essential hypertension, benign Coronary artery disease involving [place] coronary artery of [place] heart without angina pectoris Mixed hyperlipidemia Pacemaker Cardiac pacemaker in situ CHB (complete heart block) (HCC) Atrioventricular block, complete Chronic atrial fibrillation (HCC) Atrial fibrillation 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 Long-term (current) use of anticoagulants Pacemaker reprogramming/check Fitting and adjustment of cardiac pacemaker [facility] Diagnosis 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 Pacemaker reprogramming/check Fitting and adjustment of cardiac pacemaker [facility] 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..] of cardiac pacemaker [facility] Diagnosis 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) Chronic myeloid leukemia, without mention of having achieved remission MDS (myelodysplastic syndrome) (HCC) Myelodysplastic syndrome, unspecified Pacemaker reprogramming/check Fitting and adjustment of cardiac pacemaker [facility] noteNo assessment information availableWWright-[facility] Work Phone: Evaluation note* Diagnosis [...] of cardiac pacemaker [facility]* Diagnosis Onset Date Resolution Status Admit Date Cellulitis of left leg acute Au marylou 2024 4:21pm Chronic anticoagulation acute A ugust 2024 4:21pm History of atrial fibrillation acute June 23, 2025 4:21pm History of chronic myeloid leukemia acute June 23 4:21pm History of stroke acute June 23, 2025 4:21pm 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) Chronic myeloid leukemia, without mention of having achieved remission MDS (myelodysplastic syndrome) (HCC) Myelodysplastic syndrome, unspecified Pacemaker reprogramming/check Fitting and adjustment of cardiac pacemaker [facility]* Diagnosis Cellulitis of left leg- Primary Cellulitis and abscess of leg, except foot Lymphedema of both lower extremities 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, unspecified acute renal failure type (HCC) Chronic heart failure with preserved ejection fraction (HCC) 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 Multiple skin tears Open wound(s) (multiple) of unspecified site(s), without mention of complication Pacemaker reprogramming/check Fitting and adjustment of cardiac pacemaker [facility] Diagnosis Osteoarthritis, generalized- Primary Generalized osteoarthrosis, unspecified site Spinal stenosis of lumbar region with neurogenic claudication Spinal stenosis, lumbar region, with neurogenic claudication Pacemaker reprogramming/check Fitting and adjustment of cardiac pacemaker [facility] Diagnosis 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 Chronic myeloid leukemia, without mention of having achieved remission Pacemaker reprogramming/check Fitting and adjustment of cardiac pacemaker [facility] Diagnosis 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 May 14, 2023 5:26pm Note Date/Time May 14, 2023 4:54p m [facility] Medical Records Department [address] [place] [id number] H&P Exam - Hospitalist 05/14/23 1647 MR#: [id number] Acct: [id number] Name: SRINI LUIS Rep #:[id number] : 1935 87 From: Mary Prather MD PCP: Hamzah Pruitt Status:AD[facility] - General General Date of Admission: 05/14/23 Date of Service: 05/14/23 Chief Complaint: Chills, RLE pain HPI Narrative Mr. Luis is an 87-year-old male with history of CVA, CMML on chemotherapy whopresented [facility] 05/14/2023 due to weakness and rigors. Inthe [...] coughing. No other complaints at this time [facility] Medical History (Updated 05/14/23 @ 17:22 by [...] Std Deviation 83.3 H, RDW Coeff of Lius Alberto 22.2 H, Plt Count 399, MPV 10.7, Immature Gran % (Auto) 1.600 H, Neut % (Auto) 89.7 H, Lymph% (Auto) 5.6 L, Ward % (Auto) 2.7, Eos % (Auto) 0.0, [...] fluid overload Charges/Coding Visit Charges Inpatient E&M: 85444 Init Hosp L3 05/14/23 1726 <Electronically signed by Mary Prather MD> Cosigner Signature (if applicable): CC: Dr. Mary Prather MD; Hamzah Pettyjuan~ Signed [facility] Work Phone: History and physical note Author Mary Prather [facility] Note Date/Time June 23, 2025 5: 14pm [facility] Medical Records Department [address] [place] [address] H&P Exam - Hospitalist 06/23/25 1621 MR#: [id number] Acct: [id number] Name: SRINI LUIS Rep #:[id number] : 1935 89 From: Mary Prather MD PCP: Dr. Ronaldo Pleitez MD Status:R EG ER Location: ED HPI - General General Date of Admission: 06/23/25 Date of Service: 06/23/25 Chief Complaint: Increasing left lower extremity swelling HPI Narrative SRINI LUIS, is a 89-year-old male history of CABG, CVA, pacemaker, A-fib on Xarelto, hypothyroidism, CML who presented to [facility] ED 06/23/2025 with worsening cellulitis of his [...] chills, no other new or acute complaints [facility] Medical History Cellulitis CMML (chronic myelomonocytic leukemia) [...] capsule multivitamin 1 tab PO DAILY 04/09/23 07/05/01 History rivaroxaban 20 mg tablet (Xarelto) 20 [...] Signs Vital Signs Vital Signs: 06/23/25 13:25 06/23/25 16:20 Temperature 97.9 F Temperature Source Oral [...] Coeff of Luis Alberto 26.7 H, Plt [id number], MPV 10.6, Immature Gran % (Auto) 0.300, Neut % (Auto) 68.2, Lymph % (Auto) 14.5 L, Ward % (Auto) 15.5 H, Eos % (Auto) [...] Prather MD Charges/Coding Visit Charges Inpatient E&M: 66578 Init Hosp L2 06/23/25 4332 <Electronically signed by Mary Prather MD> Cosigner Signature (if applicable): CC: Dr. Mary Prather MD; Dr. Ronaldo Pleitez MD~ Signed [facility] Work Phone: Hospital Discharge instructionsAdditional Instructions Your [...] the leg, fatigue, fevers, chills, nausea or vomiting.[facility] Work Phone: Hospital Discharge instructionsAdditional Instructions Date of Discharge: 06/26/25[facility] Work Phone: Reason for referral (narrative)* Diagnostic Procedure Only (Routine) - Closed Specialty Diagnoses / Procedures Referred By Contac t Referred To Contact XR IMAGING Diagnoses Spinal stenosis of lumbar region with neurogenic claudication Procedures XR LUMBAR MOTION 4V AP/LAT/ FLEX/EXT RADEX SPINE LUMBOSACRAL MINIMUM 4 VIEWS Laron Fortune PA-C [address] [place] [address] Xr Imaging Referral ID Status Reason Start Date Expiration Date V isits Requested Visits Authorized [id number] Closed Auto-Generate d Referral 02/28/2022 03/30/2023 1 1 [facility] for referral (narrative)* Diagnostic Procedure Only (Routine) - Pending Review Specialty Diagnoses / Procedures Referred By Contac t Referred To Contact XR IMAGING Diagnoses Pes anserine bursitis Acute pain of right knee Procedures XR KNEE LIMITED 2V AP/LAT RIGHT RADIOLOGIC EXAMINATION KNEE 1/2 VIEWS Israel Pruitt DO [address] [place] [address] Xr Imaging Referral ID Status Reason Start Date Expiration Date Visits Requested Visits Authorized [id number] Pending Review Auto-Generat ed Referral 05/29/2022 06/28/2023 [...] HIGH COMPLEX 45 MINS Israel Pruitt DO [address] [place] [address] [facility] [address] [place] [address] Referral ID Status Reason Start Date Expiration Date Visits Requested Visits Authorized [id number] Pending Review Auto-Generat ed Referral 05/29/2022 05/29/2023 1 1 [facility] for referral (narrative)* Diagnostic Procedure Only (Routine) - Closed Specialty Diagnoses / Procedures Referred By Contac t Referred To Contact XR IMAGING Diagnoses Pes anserine bursitis Acute pain of right knee Procedures XR KNEE LIMITED 2V AP/LAT RIGHT RADIOLOGIC EXAMINATION KNEE 1/2 VIEWS Israel Pruitt DO [address] [place] [address] Xr Imaging Referral ID Status Reason Start Date Expiration Date V isits Requested Visits Authorized [id number] Closed Auto-Generate d Referral 05/29/2022 06/28/2023 1 1 [facility] for referral (narrative)* Outpatient Procedure (Routine) - Closed Specialty Diagnoses / Procedures Referred By Contac t Referred To Contact [facility] Diagnoses Benign hypertension Procedures ECG COMPLETE ECG ROUTINE ECG W/LEAST 12 LDS W/I&R Iram Johnson APRN.PHOTO MASK PATTERN GENERATOR [address] [place] [address] [facility] [address] [place] [address] Referral ID Status Reason Start Date Expiration Date V isits Requested Visits Authorized [id number] Closed Auto-Generate d Referral 06/06/2022 06/06/2023 1 1 [facility] for referral (narrative)* Diagnostic Procedure Only (Urgent) - Closed Specialty Diagnoses / Procedures Referred By Contac t Referred To Contact US IMAGING Diagnoses Traumatic ecchymosis of foot, right, initial encounter Bilateral calf pain Venous stasis of both lower extremities Procedures US DVT LOWER BILATERAL DUP-SCAN XTR VEINS COMPLETE BILATERAL STUDY Israel Pruitt, DO [address] [place] [address] Us Imaging Referral ID Status Reason Start Date Expiration Date V isits Requested Visits Authorized [id number] Closed Auto-Generate d Referral 03/25/2023 04/23/2024 1 1 [facility] for referral (narrative)* Outpatient Procedure (Urgent) - Pending Review Specialty Diagnoses / Procedures Referred By Contac t Referred To Contact [facility] Diagnoses 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) Arm swelling Procedures US ARM VEIN DVT UNL VAS LAB DUP-SCAN XTR VEINS UNILATERAL/LIMITED STUDY Baljinder Galloway DO [address] [facility] [place] [address] [facility] [address] [place] [address] Referral ID Status Reason Start Date Expiration Date Visits Requested Visits Authorized [id number] Pending Review Auto-Generat ed Referral 05/05/2023 05/04/2024 1 1 [facility] for referral (narrative)* Diagnostic Procedure Only (Urgent) - Authorized Specialty Diagnoses / Procedures Referred By Contac t Referred To Contact US IMAGING Diagnoses Right leg pain Procedures US DVT LOWER RIGHT DUP-SCAN XTR VEINS UNILATERAL/LIMITED STUDY Israel Gates MD [address] [place] [address] Us Imaging Referral ID Status Reason Start Date Expiration Date Visits Requested Visits Authorized [id number] Authorized Auto-Generat ed Referral 05/14/2023 06/12/2024 1 1 [facility] for referral (narrative)* Diagnostic Procedure Only (Routine) - Closed Specialty Diagnoses / Procedures Referred By Contac t Referred To Contact XR IMAGING Diagnoses Right elbow pain Monoarthritis of elbow, right Procedures XR ELBOW SPECIAL VIEWS AP/LAT/OTHER RIGHT RADEX ELBOW COMPLETE MINIMUM 3 VIEWS Ronaldo Pleitez MD [address] [place] [address] [place] [address] Referral ID Status Reason Start Date Expiration Date V isits Requested Visits Authorized [id number] Closed Auto-Generate d Referral 12/23/2023 01/21/2025 1 1 [facility] for referral (narrative)* Diagnostic Procedure Only (Routine) - Closed Specialty Diagnoses / Procedures [facility] To Contact XR IMAG[facility] Diagnoses Right elbow pain Monoarthritis of elbow, right Procedures XR ELBOW SPECIAL VIEWS AP/LAT/OTHER RIGHT RADEX ELBOW COMPLETE MINIMUM 3 VIEWS Ronaldo Pleitez MD [address] [place] [address] [place] [address] Referral ID Status Reason Start Date Expiration Date V isits Requested Visits Authorized [id number] Closed Auto-Generate d Referral 12/23/2023 01/21/2025 1 1 [facility] for referral (narrative)* Diagnostic Procedure Only (Routine) - New Request Specialty Diagnoses / Procedures Referred By Contac t Referred To Contact MOLECULAR [facility]AL [facility] Diagnoses Coronary artery disease involving [place] coronary artery of [place] heart without angina pectoris Encounter for screening for cardiovascular disorders SOB (shortness of breath) Procedures NM CARDIAC PERF STRESS/PHARM MYOCARDIAL SPECT MULTIPLE STUDIES Iram Johnson APRN.PHOTO MASK PATTERN GENERATOR [address] [facility] [address] [place] [address] Molecular [facility] Functional [facility] [address] [place] [address] Referral ID Status Reason Start Date Expiration Date Visits Requested Visits Authorized [id number] New Request Auto-Generat ed Referral 10/27/2025 1 1 [facility] for referral (narrative)No reason for referral information availableWWright-[facility] Work Phone: Reason for visit Narrative* Diagnostic Procedure Only (Routine) - Closed Specialty Diagnoses / Procedures Referred By Contmar t Referred To Contact XR IMAGING Diagnoses Spinal stenosis of lumbar region with neurogenic claudication Procedures XR LUMBAR MOTION 4V AP/LAT/ FLEX/EXT RADEX SPINE LUMBOSACRAL MINIMUM 4 VIEWS Laron Fortune PA-C [address] [place] [address] Xr Imaging Referral ID Status Reason Start Date Expiration Date V isits Requested Visits Authorized [id number] Closed Auto-Generate d Referral 02/28/2022 03/30/2023 1 1 [facility] for visit Narrative* Diagnostic Procedure Only (Routine) - Closed Specialty Diagnoses / Procedures Referred By Contac t Referred To Contact XR IMAGING Diagnoses Pes anserine bursitis Acute pain of right knee Procedures XR KNEE LIMITED 2V AP/LAT RIGHT RADIOLOGIC EXAMINATION KNEE 1/2 VIEWS Israel Pruitt DO [address] [place] [address] Xr Imaging Referral ID Status Reason Start Date Expiration Date V isits Requested Visits Authorized [id number] Closed Auto-Generate d Referral 05/29/2022 06/28/2023 1 1 [facility] for visit Narrative* Diagnostic Procedure Only (Routine) - Closed Specialty Diagnoses / Procedures Referred By Carissa diaz Referred To Contact XR IMAGING Diagnoses Right elbow pain Monoarthritis of elbow, right Procedures XR ELBOW SPECIAL VIEWS AP/LAT/OTHER RIGHT RADEX ELBOW COMPLETE MINIMUM 3 VIEWS Ronaldo Pleitez MD [address] [place] [address] [place] [address] Referral ID Status Reason Start Date Expiration Date V isits Requested Visits Authorized [id number] Closed Auto-Generate d Referral 12/23/2023 01/21/2025 1 1 [facility] for visit Narrative* [place] Prior Authorization (Routine) - Authorized Specialty Diagnoses / Procedures Referred By Carissa diaz Referred To Contact Diagnoses 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) Procedures DARBEPOETIN MARILU, NON-ESRD Baljinder Galloway, DO [address] [place] [address] Phone: tel: fax: Hematology/Oncology [address] [place] [address] Phone: tel: fax: Referral ID Status Reason Start Date Expiration Date V isits Requested Visits Authorized [id number] Authorized 11/22/2024 05/09/2025 12 12 [facility] for visit Narrative* [place] Prior Authorization (Routine) - Authorized Specialty Diagnoses / Procedures Referred By Carissa diaz Referred To Contact Diagnoses 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) Procedures DARBEPOETIN MARILU, NON-ESRD Baljinder Galloway, DO [address] [facility] [place] [address] Phone: tel: fax: Hematology/Oncology [address] [place] [address] Phone: tel: fax: Referral ID Status Reason Start Date Expiration Date V isits Requested Visits Authorized [id number] Authorized 11/22/2024 05/09/2025 12 12 [facility] Chief Complaint Chief Complaint Description Start Date right ankle pain Preliminary chief co mplaint data, not yet signed by the author as of Instructions Instruction Description Start Date CompletedPatient advised to follow-up with Primary Care Physician for BMI management. Advance Directives No Advanced Directives Records FoundDocuments on File Type Date Recorded Patient Torch Cutter Expl anation Advance Directive(s) 05/30/2022 10:37 AM [...] Documents on File Type Date Recorded Patient Torch Cutter Expl anation Advance Directive(s) 02/01/2021 2:20 PM Advance Directive(s) 04/26/2009 10:50 AM Documents on File Type Date Recorded Patient Torch Cutter Expl anation Advance Directive(s) 02/01/2021 2:20 PM Advance Directive(s) 04/26/2009 10:50 AM Documents on File Type Date Recorded Patient Torch Cutter Expl anation Advance Directive(s) 05/30/2022 10:37 AM Advance Directive(s) 02/01/2021 2:20 PM Documents on File Type Date Recorded Patient Torch Cutter Expl anation Advance Directive(s) 05/30/2022 10:37 AM [...] Documents on File Type Date Recorded Patient Torch Cutter Expl anation Advance Directive(s) 05/30/2022 10:37 AM Latest Code Status on File Code Status Date Activated Date Inactivated Comments Full Code 09/15/2022 5:52 PM 09/18/2022 10:33 PM Full Code 08/27/2022 8:34 AM 09/05/2022 5:31 PM Full Code 08/22/2022 6:39 PM 08/26/2022 5:09 PM Advance Directive Response Recorded Date/ Time Name of Medical Power of Flatbed Stitcher Liza Mark May 14, 2023 12:18pm Living Will Yes May 14, 2023 1 2:18pm Power of Flatbed Stitcher Yes May 14, 2023 12:18pm Advance Directive Response Recorded Date/ Time Name of Medical Power of Flatbed Stitcher Liza Mark May 14, 2023 6:22pm Living Will Yes May 14, 2023 6 :22pm Power of Flatbed Stitcher Yes May 14, 2023 6:22pm Latest Code [...] Do you have a Healthcare Power of Flatbed Stitcher? Yes June 18, 2025 9:25pm Advance Directive Response Recorded Date/ Time Do you have a Healthcare Power of Flatbed Stitcher? Yes June 18, 2025 9:25pm Do you have a Healthcare Power of Flatbed Stitcher? Yes June 23, 2025 1:43pm Name of Medical Power of Flatbed Stitcher liza mark June 23, 2025 1:43pm Advance Directive Response Recorded Date/ Time Do you have a Healthcare Power of Flatbed Stitcher? Yes June 18, 2025 9:25pm Do you have a Healthcare Power of Flatbed Stitcher? Yes June 23, 2025 5:30pm Name of Medical Power of Flatbed Stitcher liza mark June 23, 2025 1:43pm Date Activated Date Inactivated Comments 07/13/2025 8:01 PM Date Activated Date Inactivated Comments 09/15/2022 5:52 PM 09/18/2022 10:33 PM Date Activated Date Inactivated Comments 08/27/2022 8:34 AM 09/05/2022 5:31 PM Date Activated Date Inactivated Comments 08/22/2022 6:39 [...] W/O CONTRAST MATERIAL Laron Fortune PA-C [address] [place] [address] Mr Imaging Referral ID Status Reason Start Date Expiration Date Visits Requested Visits Authorized [id number] Authorized Auto-Generat ed Referral 05/08/2022 06/07/2023 1 1 Referral ID Status Reason Start Date Expiration Date V isits Requested Visits Authorized [id number] Closed Auto-Generate d Referral 05/08/2022 06/07/2023 1 1 Specialty Diagnoses / Procedures Referred By Contac t Referred To Contact CT IMAGING Diagnoses Unstable gait Postural dizziness Confusion and disorientation Diplopia Procedures CT BRAIN WO IVCON CT HEAD/BRAIN W/O CONTRAST MATERIAL Israel Pruitt, [address] [place] [address] Ct Imaging Referral ID Status Reason Start Date Expiration Date Visits Requested Visits Authorized [id number] Authorized Auto-Generat ed Referral 04/20/2023 05/19/2024 1 1 Specialty Diagnoses / Procedures Referred By Contac t Referred To Contact CT IMAGING Diagnoses Unstable gait Postural dizziness Confusion and disorientation Diplopia Procedures CT BRAIN WO IVCON CT HEAD/BRAIN W/O CONTRAST MATERIAL Israel Pruitt DO [address] [place] [address] Ct Imaging [facility] [address] Referral ID Status Reason Start Date Expiration Date V isits Requested Visits Authorized [id number] Closed Auto-Generate d Referral 04/20/2023 05/19/2024 1 [...] Drug: Use appropriate PPE. New Bag/Syringe/Eliseo che 03/16/2023 9:09 AM EDT 146.25 mg 747.75 [...] Drug: Use appropriate PPE. New Bag/Syringe/Eliseo le 04/09/2023 8:48 AM EDT 146.25 mg 747.75 mL/hr dexAMETHasone 10 mg/NS 50 mL (PYXIS) 10 mg ivpb (DECADRON) 10 mg, INTRAVENOUS, ONCE, 1 dose, On Thu04/09/23 at 0800, Refrigerate. New Bag/Syringe/Eliseo le 04/09/2023 8:08 AM EDT 10 mg ondansetron [...] Drug: Use appropriate PPE. New Bag/Syringe/Eliseo le 04/13/2023 10:50 AM EDT 146.25 mg 747.75 [...] Chemotherapy Drug: Use appropriate PPE. New Bag/Syringe/Eliseo 04/14/2023 10:40 AM EDT 146.25 mg 747.75 mL/hr dexAMETHasone 10 mg/NS 50 mL (PYXIS) 10 mg ivpb (DECADRON) 10 mg, INTRAVENOUS, ONCE, 1 dose, On Thu04/14/23 at 1000, Refrigerate. New Bag/Syringe/Eliseo 04/14/2023 10:20 AM EDT 10 mg ondansetron [...] Chemotherapy Drug: Use appropriate PPE. New Bag/Syringe/Eliseo 05/04/2023 2:52 PM EDT 146.25 mg 747.75 mL/hr dexAMETHasone 10 mg/NS 50 mL (PYXIS) 10 mg ivpb (DECADRON) 10 mg, INTRAVENOUS, ONCE, 1 dose, On Thu05/04/23 at 1430, Refrigerate. 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 SKILLED NURSING LAB WORK SEPSIS, CELLULITIS, CHF, HYPOXEMIA, CMML SEPSIS, CELLULITIS, CHF, HYPOXEMIA, CMML SEPSIS, CELLULITIS, CHF, HYPOXEMIA, CMML SEPSIS, CELLULITIS, CHF, HYPOXEMIA, CMML SEPSIS, CELLULITIS, CHF, HYPOXEMIA, CMML 1 UNIT PRBC SKILLED NURSING LAB WORK Reason for Visit Feared condition [...] 4:21pm History of chronic myeloid leukemia Augu 2024 4:21pm History of stroke June 23, 2025 4: 21pm Chief Complaint Admit Date EDEMA June 18, 2025 8: 55pm STAT LEFT LEG SWELLING June 19, 2025 9:49am LEFT LOWER EXTREMITY CELLULITIS June 092024 4:21pm LEFT LOWER EXTREMITY CELLULITIS June 092024 10:15am LEFT LOWER EXTREMITY CELLULITIS June 092024 11:17am LEFT LOWER EXTREMITY CELLULITIS June 092024 10:41am Additional Source Comments Reason for Visit (unrecogniz [...] OT COMM REINTEGRATION Homer Soto MD [address] [id number] Rosa Abrams OT/L Referral ID Status Reason Start Date Expiration Date V isits Requested Visits Authorized [id number] Authorized 11/09/2021 11/08/2022 99 99 Reason Comments Physical Therapy Specialty Diagnoses / Procedures Referred By Contac t Referred To Contact PHYSICAL THERAPY Diagnoses Spinal stenosis of lumbar region with neurogenic claudication Procedures CONSULT TO PHYSICAL THERAPY Laron Fortune, PA-C [address] [place] [address] Sanket Solo, PT [address] [place] [address] Referral ID Status Reason Start Date Expiration Date V isits Requested Visits Authorized [id number] Authorized 02/28/2022 11/08/2022 99 99 Reason For [...] W/O CONTRAST MATERIAL Laron Fortune PA-C [address] [place] [address] Mr Imaging Referral ID Status Reason Start Date Expiration Date V isits Requested Visits Authorized [id number] Closed Auto-Generate d Referral 05/08/2022 06/07/2023 1 [...] Reason Comments Consult Reason Comments Hospital F/U [facility] [id number] 2 to 07-09-22-CHF Reason Onset Date Comments [...] 10/23/2022 Specialty Diagnoses / Procedures [facility] Referred To Contact Diagnoses Macrocytic anemia Procedures DIAGNOSTIC BONE MARROW BIOPSIES & ASPIRATIONS DIAGNOSTIC BONE MARROW BIOPSY(IES) AND ASPIRATION(S) Or Interventional Radiology [address] [place] [address] Referral ID Status Reason Start Date Expiration Date Visits Re quested Visits Authorized [id number] 1 1 Reason Comments Established Patient Reason Comments ak HFC question Reason Onset Date Comments Refill Request 11/20/2022 Reason Comments Chemotherapy Education Class Specialty Diagnoses / Procedures Referred By [facility] Referred To Contact Diagnoses 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) Procedures INSJ PRPH CTR VAD W/SUBQ PORT AGE 5 YR/> PERIPHERAL INSERTION CV CATHETER WITH PORT, OVER 4 YRS Or Interventional Radiology [address] [place] [address] Referral ID Status Reason Start Date Expiration Date Visits Re quested Visits Authorized [id number] 1 1 Reason Comments Recheck 3 months F/U Reason Comments Chemotherapy Treatment Specialty Diagnoses / Procedures Referred By [facility] Referred To Contact Diagnoses 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) Procedures AZACITIDINE INJECTION ValentinodelRanda, DO [address] [address] [facility] [place] [facility] [address] [place] [address] Referral ID Status Reason Start Date Expiration Date V isits Requested Visits Authorized [id number] Authorized 12/10/2022 12/10/2023 1 99 Reason Comments [...] up Reason Comments ED Follow-up 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 Comments 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 Reason Onset Date [facility]14/2023 [facility] telephonic outreach Reason Comments Research Consent [id number] Reason Comments 4 month office visit Lab review Specialty Diagnoses / Procedures Referred [facility] Referred To Contact Diagnoses 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) Procedures AZACITIDINE INJECTION Baljinder Galloway, DO [address] [place] [address] [facility] [address] [place] [address] Referral ID Status Reason Start Date Expiration Date V isits Requested Visits Authorized [id number] Authorized 12/10/2022 05/04/2024 99 99 Reason Comments Chemotherapy Treatment Reason Comments Orders Reason Onset Date Comments [facility] 05/06/2023 Telephonic outre ach Reason Comments Imm/Inj immunization Reason Comments hepatitis B titer results/order Reason Comments Results DVT Reason Comments Patient Question Patient Update Update regarding dec ision making regarding patient's right-sided peripheral CV catheter with port with recent diagnosis right IJ DVT. 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 Reason Onset Date Comments [facility] 07/02/2023 Telephonic outre ach Reason Onset Date Comments [facility] 07/29/2023 Telephonic outre ach Reason Onset Date Comments [facility] 09/07/2023 Telephonic outre ach Reason Comments Radiology CT Specialty Diagnoses / Procedures Referred By Carissa t Referred To Contact CT IMAGING Diagnoses Unstable gait Postural dizziness Confusion and disorientation Diplopia Procedures CT BRAIN WO IVCON CT HEAD/BRAIN W/O CONTRAST MATERIAL Israel Pruitt, [address] [place] [address] [place] [address] Referral ID Status Reason Start Date Expiration Date V isits Requested Visits Authorized [id number] Closed Auto-Generate d Referral 04/20/2023 05/19/2024 1 1 Reason Comments Patient Update Surgical site ( port removal ) Reason Onset Date Comments [facility] 10/07/2023 Telephonic outre ach Reason Onset Date Comments Refill Request 12/18/2023 Reason Comments Right arm pain Reason Onset Date Comments [facility] 01/01/2024 Telephonic outre ach Reason Comments Medicare Wellness Exam Reason Onset Date Comments [facility] 02/15/2024 Telephonic outre ach Reason Onset Date Comments [facility] 03/14/2024 Telephonic outre ach Reason Onset Date Comments [facility] 03/15/2024 Telephonic outre ach Reason Onset Date Comments [facility] 04/12/2024 Telephonic outre ach Reason Onset Date Comments [facility] 05/10/2024 Telephonic outre ach Reason Onset Date Comments [facility] 05/11/2024 Telephonic outre ach Reason Onset Date Comments Population Health Navigation Outreach 05/25/2024 Med Adherence ([place]) Reason Onset Date Comments [facility] 06/08/2024 Telephonic outre ach Reason Onset Date Comments [facility] 06/09/2024 Telephonic outre ach Reason Comments Remote Pacemaker Follow Up Reason Onset Date Comments [facility] 07/04/2024 Telephonic outre ach Reason Onset Date Comments [facility] 07/05/2024 Telephonic outre ach Reason Comments F/U 6 Month Reason Onset Date Comments [facility] 08/02/2024 Telephonic outre ach Reason Onset Date Comments [facility] 08/30/2024 Telephonic outre ach Reason Onset Date Comments [facility] 10/03/2024 Telephonic outre ach Reason Comments short [...] NON-ESRD Baljinder Galloway, DO [address] [place] [address] [facility] [address] [place] [address] Referral ID Status Reason Start Date Expiration Date V isits Requested Visits Authorized [id number] Authorized 11/22/2024 05/09/2025 12 12 Reason Comments Imm/Inj Specialty Diagnoses / Procedures Referred By Carissa t Referred To Contact Diagnoses 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) Procedures DARBEPOETIN MARILU, NON-ESRD Baljinder Galloway, [address] [facility] [place] [address] [facility] [address] [place] [address] Specialty Diagnoses / Procedures Referred By Carissa t Referred To Contact Diagnoses 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) Procedures DARBEPOETIN MARILU, NON-ESRD Baljinder Galloway, DO [address] [facility] [place] [address] Phone: tel: fax: Hematology/Oncology [address] [place] [address] Phone: tel: fax: Reason Onset Date Comments Refill Request 12/23/2024 Reason Comments Medicare Wellness Exam Specialty Diagnoses / Procedures Referred By Carissa t Referred To Contact Diagnoses 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 Wou nd is bleeding and soaking through gauze Reason Comments Wound Care Recheck wounds on le ft arm Reason Comments Recheck Wound check-left arm Reason Comments ER F/U Reason Comments Established Patient Reason Onset Date Comments Transition Of Care 07/14/2025 Inpatient herminia ch in (unrecognized sect ion and content) No Status Records FoundNo Status Records FoundNo Status Records FoundNo Status Records FoundNo Status Records FoundNo Status Records FoundNo Status Records Found INFORMATION SOURCE (unrecogn ized section and content) DATE CREATED AUTHOR 08/18/2021 [facility] DATE CREATED AUTHOR AUTHOR'S ORGANIZ ATION 02/04/2022 [facility] DATE CREATED AUTHOR AUTHOR'S ORGANIZ ATION 08/10/2022 [facility] DATE CREATED AUTHOR AUTHOR'S ORGANIZ ATION 04/21/2023 [facility] DATE CREATED AUTHOR AUTHOR'S ORGANIZ ATION 07/17/2025 [facility] DATE CREATED AUTHOR AUTHOR'S ORGANIZ ATION 07/26/2025 [facility] DATE CREATED AUTHOR AUTHOR'S ORGANIZ ATION 07/27/2025 [facility] Source Comments (unrecognize d section and content) In the event this informatio n is protected by the Federal Confidentiality of Alcohol and Drug Abuse Patient Records regulations: The Federal rules restrict any use of the information to criminally investigate or prosecute any alcohol or drug abuse patient.[facility] the event this information is protected by the Federal Confidentiality of Alcohol and Drug Abuse Patient Records regulations: The Federal rules restrict any use of the information to criminally investigate or prosecute any alcohol or drug abuse patient.[facility] the event this information is protected by the Federal Confidentiality of Alcohol and Drug Abuse Patient Records regulations: The Federal rules restrict any use of the information to criminally investigate or prosecute any alcohol or drug abuse patient.[facility] the event this information is protected by the Federal Confidentiality of Alcohol and Drug Abuse Patient Records regulations: The Federal rules restrict any use of the information to criminally investigate or prosecute any alcohol or drug abuse patient.[facility] the event this information is protected by the Federal Confidentiality of Alcohol and Drug Abuse Patient Records regulations: The Federal rules restrict any use of the information to criminally investigate or prosecute any alcohol or drug abuse patient.[facility] the event this information is protected by the Federal Confidentiality of Alcohol and Drug Abuse Patient Records regulations: The Federal rules restrict any use of the information to criminally investigate or prosecute any alcohol or drug abuse patient.[facility] the event this information is protected by the Federal Confidentiality of Alcohol and Drug Abuse Patient Records regulations: The Federal rules restrict any use of the information to criminally investigate or prosecute any alcohol or drug abuse patient.[facility] the event this information is protected by the Federal Confidentiality of Alcohol and Drug Abuse Patient Records regulations: The Federal rules restrict any use of the information to criminally investigate or prosecute any alcohol or drug abuse patient.[facility] the event this information is protected by the Federal Confidentiality of Alcohol and Drug Abuse Patient Records regulations: The Federal rules restrict any use of the information to criminally investigate or prosecute any alcohol or drug abuse patient.[facility] the event this information is protected by the Federal Confidentiality of Alcohol and Drug Abuse Patient Records regulations: The Federal rules restrict any use of the information to criminally investigate or prosecute any alcohol or drug abuse patient.[facility] the event this information is protected by the Federal Confidentiality of Alcohol and Drug Abuse Patient Records regulations: The Federal rules restrict any use of the information to criminally investigate or prosecute any alcohol or drug abuse patient.[facility] the event this information is protected by the Federal Confidentiality of Alcohol and Drug Abuse Patient Records regulations: The Federal rules restrict any use of the information to criminally investigate or prosecute any alcohol or drug abuse patient.[facility] the event this information is protected by the Federal Confidentiality of Alcohol and Drug Abuse Patient Records regulations: The Federal rules restrict any use of the information to criminally investigate or prosecute any alcohol or drug abuse patient.[facility] the event this information is protected by the Federal Confidentiality of Alcohol and Drug Abuse Patient Records regulations: The Federal rules restrict any use of the information to criminally investigate or prosecute any alcohol or drug abuse patient.[facility] the event this information is protected by the Federal Confidentiality of Alcohol and Drug Abuse Patient Records regulations: The Federal rules restrict any use of the information to criminally investigate or prosecute any alcohol or drug abuse patient.[facility] the event this information is protected by the Federal Confidentiality of Alcohol and Drug Abuse Patient Records regulations: The Federal rules restrict any use of the information to criminally investigate or prosecute any alcohol or drug abuse patient.[facility] the event this information is protected by the Federal Confidentiality of Alcohol and Drug Abuse Patient Records regulations: The Federal rules restrict any use of the information to criminally investigate or prosecute any alcohol or drug abuse patient.[facility] the event this information is protected by the Federal Confidentiality of Alcohol and Drug Abuse Patient Records regulations: The Federal rules restrict any use of the information to criminally investigate or prosecute any alcohol or drug abuse patient.[facility] the event this information is protected by the Federal Confidentiality of Alcohol and Drug Abuse Patient Records regulations: The Federal rules restrict any use of the information to criminally investigate or prosecute any alcohol or drug abuse patient.[facility] the event this information is protected by the Federal Confidentiality of Alcohol and Drug Abuse Patient Records regulations: The Federal rules restrict any use of the information to criminally investigate or prosecute any alcohol or drug abuse patient.[facility] the event this information is protected by the Federal Confidentiality of Alcohol and Drug Abuse Patient Records regulations: The Federal rules restrict any use of the information to criminally investigate or prosecute any alcohol or drug abuse patient.[facility] the event this information is protected by the Federal Confidentiality of Alcohol and Drug Abuse Patient Records regulations: The Federal rules restrict any use of the information to criminally investigate or prosecute any alcohol or drug abuse patient.[facility] the event this information is protected by the Federal Confidentiality of Alcohol and Drug Abuse Patient Records regulations: The Federal rules restrict any use of the information to criminally investigate or prosecute any alcohol or drug abuse patient.[facility] the event this information is protected by the Federal Confidentiality of Alcohol and Drug Abuse Patient Records regulations: The Federal rules restrict any use of the information to criminally investigate or prosecute any alcohol or drug abuse patient.[facility] the event this information is protected by the Federal Confidentiality of Alcohol and Drug Abuse Patient Records regulations: The Federal rules restrict any use of the information to criminally investigate or prosecute any alcohol or drug abuse patient.[facility] the event this information is protected by the Federal Confidentiality of Alcohol and Drug Abuse Patient Records regulations: The Federal rules restrict any use of the information to criminally investigate or prosecute any alcohol or drug abuse patient.[facility] the event this information is protected by the Federal Confidentiality of Alcohol and Drug Abuse Patient Records regulations: The Federal rules restrict any use of the information to criminally investigate or prosecute any alcohol or drug abuse patient.[facility] the event this information is protected by the Federal Confidentiality of Alcohol and Drug Abuse Patient Records regulations: The Federal rules restrict any use of the information to criminally investigate or prosecute any alcohol or drug abuse patient.[facility] the event this information is protected by the Federal Confidentiality of Alcohol and Drug Abuse Patient Records regulations: The Federal rules restrict any use of the information to criminally investigate or prosecute any alcohol or drug abuse patient.[facility] the event this information is protected by the Federal Confidentiality of Alcohol and Drug Abuse Patient Records regulations: The Federal rules restrict any use of the information to criminally investigate or prosecute any alcohol or drug abuse patient.[facility] the event this information is protected by the Federal Confidentiality of Alcohol and Drug Abuse Patient Records regulations: The Federal rules restrict any use of the information to criminally investigate or prosecute any alcohol or drug abuse patient.[facility] the event this information is protected by the Federal Confidentiality of Alcohol and Drug Abuse Patient Records regulations: The Federal rules restrict any use of the information to criminally investigate or prosecute any alcohol or drug abuse patient.[facility] the event this information is protected by the Federal Confidentiality of Alcohol and Drug Abuse Patient Records regulations: The Federal rules restrict any use of the information to criminally investigate or prosecute any alcohol or drug abuse patient.[facility] the event this information is protected by the Federal Confidentiality of Alcohol and Drug Abuse Patient Records regulations: The Federal rules restrict any use of the information to criminally investigate or prosecute any alcohol or drug abuse patient.[facility] the event this information is protected by the Federal Confidentiality of Alcohol and Drug Abuse Patient Records regulations: The Federal rules restrict any use of the information to criminally investigate or prosecute any alcohol or drug abuse patient.[facility] the event this information is protected by the Federal Confidentiality of Alcohol and Drug Abuse Patient Records regulations: The Federal rules restrict any use of the information to criminally investigate or prosecute any alcohol or drug abuse patient.[facility] the event this information is protected by the Federal Confidentiality of Alcohol and Drug Abuse Patient Records regulations: The Federal rules restrict any use of the information to criminally investigate or prosecute any alcohol or drug abuse patient.[facility] the event this information is protected by the Federal Confidentiality of Alcohol and Drug Abuse Patient Records regulations: The Federal rules restrict any use of the information to criminally investigate or prosecute any alcohol or drug abuse patient.[facility] the event this information is protected by the Federal Confidentiality of Alcohol and Drug Abuse Patient Records regulations: The Federal rules restrict any use of the information to criminally investigate or prosecute any alcohol or drug abuse patient.[facility]In the event this information is protected by the Federal Confidentiality of Alcohol and Drug Abuse Patient Records regulations: The Federal rules restrict any use of the information to criminally investigate or prosecute any alcohol or drug abuse patient.[facility]In the event this information is protected by the Federal Confidentiality of Alcohol and Drug Abuse Patient Records regulations: The Federal rules restrict any use of the information to criminally investigate or prosecute any alcohol or drug abuse patient.[facility]In the event this information is protected by the Federal Confidentiality of Alcohol and Drug Abuse Patient Records regulations: The Federal rules restrict any use of the information to criminally investigate or prosecute any alcohol or drug abuse patient.[facility] the event this information is protected by the Federal Confidentiality of Alcohol and Drug Abuse Patient Records regulations: The Federal rules restrict any use of the information to criminally investigate or prosecute any alcohol or drug abuse patient.[facility] the event this information is protected by the Federal Confidentiality of Alcohol and Drug Abuse Patient Records regulations: The Federal rules restrict any use of the information to criminally investigate or prosecute any alcohol or drug abuse patient.[facility]In the event this information is protected by the Federal Confidentiality of Alcohol and Drug Abuse Patient Records regulations: The Federal rules restrict any use of the information to criminally investigate or prosecute any alcohol or drug abuse patient.[facility]In the event this information is protected by the Federal Confidentiality of Alcohol and Drug Abuse Patient Records regulations: The Federal rules restrict any use of the information to criminally investigate or prosecute any alcohol or drug abuse patient.[facility]In the event this information is protected by the Federal Confidentiality of Alcohol and Drug Abuse Patient Records regulations: The Federal rules restrict any use of the information to criminally investigate or prosecute any alcohol or drug abuse patient.[facility] HospitalIn the event this information is protected by the Federal Confidentiality of Alcohol and Drug Abuse Patient Records regulations: The Federal rules restrict any use of the information to criminally investigate or prosecute any alcohol or drug abuse patient.[facility]In the event this information is protected by the Federal Confidentiality of Alcohol and Drug Abuse Patient Records regulations: The Federal rules restrict any use of the information to criminally investigate or prosecute any alcohol or drug abuse patient.[facility]In the event this information is protected by the Federal Confidentiality of Alcohol and Drug Abuse Patient Records regulations: The Federal rules restrict any use of the information to criminally investigate or prosecute any alcohol or drug abuse patient.[facility]In the event this information is protected by the Federal Confidentiality of Alcohol and Drug Abuse Patient Records regulations: The Federal rules restrict any use of the information to criminally investigate or prosecute any alcohol or drug abuse patient.[facility] HospitalIn the event this information is protected by the Federal Confidentiality of Alcohol and Drug Abuse Patient Records regulations: The Federal rules restrict any use of the information to criminally investigate or prosecute any alcohol or drug abuse patient.[facility] HospitalIn the event this information is protected by the Federal Confidentiality of Alcohol and Drug Abuse Patient Records regulations: The Federal rules restrict any use of the information to criminally investigate or prosecute any alcohol or drug abuse patient.[facility]In the event this information is protected by the Federal Confidentiality of Alcohol and Drug Abuse Patient Records regulations: The Federal rules restrict any use of the information to criminally investigate or prosecute any alcohol or drug abuse patient.[facility] HospitalIn the event this information is protected by the Federal Confidentiality of Alcohol and Drug Abuse Patient Records regulations: The Federal rules restrict any use of the information to criminally investigate or prosecute any alcohol or drug abuse patient.[facility] HospitalIn the event this information is protected by the Federal Confidentiality of Alcohol and Drug Abuse Patient Records regulations: The Federal rules restrict any use of the information to criminally investigate or prosecute any alcohol or drug abuse patient.[facility]In the event this information is protected by the Federal Confidentiality of Alcohol and Drug Abuse Patient Records regulations: The Federal rules restrict any use of the information to criminally investigate or prosecute any alcohol or drug abuse patient.[facility]In the event this information is protected by the Federal Confidentiality of Alcohol and Drug Abuse Patient Records regulations: The Federal rules restrict any use of the information to criminally investigate or prosecute any alcohol or drug abuse patient.[facility] HospitalIn the event this information is protected by the Federal Confidentiality of Alcohol and Drug Abuse Patient Records regulations: The Federal rules restrict any use of the information to criminally investigate or prosecute any alcohol or drug abuse patient.[facility] HospitalIn the event this information is protected by the Federal Confidentiality of Alcohol and Drug Abuse Patient Records regulations: The Federal rules restrict any use of the information to criminally investigate or prosecute any alcohol or drug abuse patient.[facility]In the event this information is protected by the Federal Confidentiality of Alcohol and Drug Abuse Patient Records regulations: The Federal rules restrict any use of the information to criminally investigate or prosecute any alcohol or drug abuse patient.[facility] HospitalIn the event this information is protected by the Federal Confidentiality of Alcohol and Drug Abuse Patient Records regulations: The Federal rules restrict any use of the information to criminally investigate or prosecute any alcohol or drug abuse patient.[facility] HospitalIn the event this information is protected by the Federal Confidentiality of Alcohol and Drug Abuse Patient Records regulations: The Federal rules restrict any use of the information to criminally investigate or prosecute any alcohol or drug abuse patient.[facility] HospitalIn the event this information is protected by the Federal Confidentiality of Alcohol and Drug Abuse Patient Records regulations: The Federal rules restrict any use of the information to criminally investigate or prosecute any alcohol or drug abuse patient.[facility]In the event this information is protected by the Federal Confidentiality of Alcohol and Drug Abuse Patient Records regulations: The Federal rules restrict any use of the information to criminally investigate or prosecute any alcohol or drug abuse patient.[facility] HospitalIn the event this information is protected by the Federal Confidentiality of Alcohol and Drug Abuse Patient Records regulations: The Federal rules restrict any use of the information to criminally investigate or prosecute any alcohol or drug abuse patient.[facility] HospitalIn the event this information is protected by the Federal Confidentiality of Alcohol and Drug Abuse Patient Records regulations: The Federal rules restrict any use of the information to criminally investigate or prosecute any alcohol or drug abuse patient.[facility] HospitalIn the event this information is protected by the Federal Confidentiality of Alcohol and Drug Abuse Patient Records regulations: The Federal rules restrict any use of the information to criminally investigate or prosecute any alcohol or drug abuse patient.[facility] HospitalIn the event this information is protected by the Federal Confidentiality of Alcohol and Drug Abuse Patient Records regulations: The Federal rules restrict any use of the information to criminally investigate or prosecute any alcohol or drug abuse patient.[facility] HospitalIn the event this information is protected by the Federal Confidentiality of Alcohol and Drug Abuse Patient Records regulations: The Federal rules restrict any use of the information to criminally investigate or prosecute any alcohol or drug abuse patient.[facility] HospitalIn the event this information is protected by the Federal Confidentiality of Alcohol and Drug Abuse Patient Records regulations: The Federal rules restrict any use of the information to criminally investigate or prosecute any alcohol or drug abuse patient.[facility]In the event this information is protected by the Federal Confidentiality of Alcohol and Drug Abuse Patient Records regulations: The Federal rules restrict any use of the information to criminally investigate or prosecute any alcohol or drug abuse patient.[facility]In the event this information is protected by the Federal Confidentiality of Alcohol and Drug Abuse Patient Records regulations: The Federal rules restrict any use of the information to criminally investigate or prosecute any alcohol or drug abuse patient.[facility]In the event this information is protected by the Federal Confidentiality of Alcohol and Drug Abuse Patient Records regulations: The Federal rules restrict any use of the information to criminally investigate or prosecute any alcohol or drug abuse patient.[facility]In the event this information is protected by the Federal Confidentiality of Alcohol and Drug Abuse Patient Records regulations: The Federal rules restrict any use of the information to criminally investigate or prosecute any alcohol or drug abuse patient.[facility]In the event this information is protected by the Federal Confidentiality of Alcohol and Drug Abuse Patient Records regulations: The Federal rules restrict any use of the information to criminally investigate or prosecute any alcohol or drug abuse patient.[facility]In the event this information is protected by the Federal Confidentiality of Alcohol and Drug Abuse Patient Records regulations: The Federal rules restrict any use of the information to criminally investigate or prosecute any alcohol or drug abuse patient.[facility]In the event this information is protected by the Federal Confidentiality of Alcohol and Drug Abuse Patient Records regulations: The Federal rules restrict any use of the information to criminally investigate or prosecute any alcohol or drug abuse patient.[facility]In the event this information is protected by the Federal Confidentiality of Alcohol and Drug Abuse Patient Records regulations: The Federal rules restrict any use of the information to criminally investigate or prosecute any alcohol or drug abuse patient.[facility]In the event this information is protected by the Federal Confidentiality of Alcohol and Drug Abuse Patient Records regulations: The Federal rules restrict any use of the information to criminally investigate or prosecute any alcohol or drug abuse patient.[facility]In the event this information is protected by the Federal Confidentiality of Alcohol and Drug Abuse Patient Records regulations: The Federal rules restrict any use of the information to criminally investigate or prosecute any alcohol or drug abuse patient.[facility]In the event this information is protected by the Federal Confidentiality of Alcohol and Drug Abuse Patient Records regulations: The Federal rules restrict any use of the information to criminally investigate or prosecute any alcohol or drug abuse patient.[facility]In the event this information is protected by the Federal Confidentiality of Alcohol and Drug Abuse Patient Records regulations: The Federal rules restrict any use of the information to criminally investigate or prosecute any alcohol or drug abuse patient.[facility]In the event this information is protected by the Federal Confidentiality of Alcohol and Drug Abuse Patient Records regulations: The Federal rules restrict any use of the information to criminally investigate or prosecute any alcohol or drug abuse patient.[facility]In the event this information is protected by the Federal Confidentiality of Alcohol and Drug Abuse Patient Records regulations: The Federal rules restrict any use of the information to criminally investigate or prosecute any alcohol or drug abuse patient.[facility]In the event this information is protected by the Federal Confidentiality of Alcohol and Drug Abuse Patient Records regulations: The Federal rules restrict any use of the information to criminally investigate or prosecute any alcohol or drug abuse patient.[facility]In the event this information is protected by the Federal Confidentiality of Alcohol and Drug Abuse Patient Records regulations: The Federal rules restrict any use of the information to criminally investigate or prosecute any alcohol or drug abuse patient.[facility]In the event this information is protected by the Federal Confidentiality of Alcohol and Drug Abuse Patient Records regulations: The Federal rules restrict any use of the information to criminally investigate or prosecute any alcohol or drug abuse patient.[facility]In the event this information is protected by the Federal Confidentiality of Alcohol and Drug Abuse Patient Records regulations: The Federal rules restrict any use of the information to criminally investigate or prosecute any alcohol or drug abuse patient.[facility]In the event this information is protected by the Federal Confidentiality of Alcohol and Drug Abuse Patient Records regulations: The Federal rules restrict any use of the information to criminally investigate or prosecute any alcohol or drug abuse patient.[facility]In the event this information is protected by the Federal Confidentiality of Alcohol and Drug Abuse Patient Records regulations: The Federal rules restrict any use of the information to criminally investigate or prosecute any alcohol or drug abuse patient.[facility]In the event this information is protected by the Federal Confidentiality of Alcohol and Drug Abuse Patient Records regulations: The Federal rules restrict any use of the information to criminally investigate or prosecute any alcohol or drug abuse patient.[facility]In the event this information is protected by the Federal Confidentiality of Alcohol and Drug Abuse Patient Records regulations: The Federal rules restrict any use of the information to criminally investigate or prosecute any alcohol or drug abuse patient.[facility]In the event this information is protected by the Federal Confidentiality of Alcohol and Drug Abuse Patient Records regulations: The Federal rules restrict any use of the information to criminally investigate or prosecute any alcohol or drug abuse patient.[facility]In the event this information is protected by the Federal Confidentiality of Alcohol and Drug Abuse Patient Records regulations: The Federal rules restrict any use of the information to criminally investigate or prosecute any alcohol or drug abuse patient.[facility]In the event this information is protected by the Federal Confidentiality of Alcohol and Drug Abuse Patient Records regulations: The Federal rules restrict any use of the information to criminally investigate or prosecute any alcohol or drug abuse patient.[facility]In the event this information is protected by the Federal Confidentiality of Alcohol and Drug Abuse Patient Records regulations: The Federal rules restrict any use of the information to criminally investigate or prosecute any alcohol or drug abuse patient.[facility]In the event this information is protected by the Federal Confidentiality of Alcohol and Drug Abuse Patient Records regulations: The Federal rules restrict any use of the information to criminally investigate or prosecute any alcohol or drug abuse patient.[facility]In the event this information is protected by the Federal Confidentiality of Alcohol and Drug Abuse Patient Records regulations: The Federal rules restrict any use of the information to criminally investigate or prosecute any alcohol or drug abuse patient.[facility]In the event this information is protected by the Federal Confidentiality of Alcohol and Drug Abuse Patient Records regulations: The Federal rules restrict any use of the information to criminally investigate or prosecute any alcohol or drug abuse patient.[facility]In the event this information is protected by the Federal Confidentiality of Alcohol and Drug Abuse Patient Records regulations: The Federal rules restrict any use of the information to criminally investigate or prosecute any alcohol or drug abuse patient.[facility]In the event this information is protected by the Federal Confidentiality of Alcohol and Drug Abuse Patient Records regulations: The Federal rules restrict any use of the information to criminally investigate or prosecute any alcohol or drug abuse patient.[facility]In the event this information is protected by the Federal Confidentiality of Alcohol and Drug Abuse Patient Records regulations: The Federal rules restrict any use of the information to criminally investigate or prosecute any alcohol or drug abuse patient.[facility]In the event this information is protected by the Federal Confidentiality of Alcohol and Drug Abuse Patient Records regulations: The Federal rules restrict any use of the information to criminally investigate or prosecute any alcohol or drug abuse patient.[facility]In the event this information is protected by the Federal Confidentiality of Alcohol and Drug Abuse Patient Records regulations: The Federal rules restrict any use of the information to criminally investigate or prosecute any alcohol or drug abuse patient.[facility]In the event this information is protected by the Federal Confidentiality of Alcohol and Drug Abuse Patient Records regulations: The Federal rules restrict any use of the information to criminally investigate or prosecute any alcohol or drug abuse patient.[facility]In the event this information is protected by the Federal Confidentiality of Alcohol and Drug Abuse Patient Records regulations: The Federal rules restrict any use of the information to criminally investigate or prosecute any alcohol or drug abuse patient.[facility]In the event this information is protected by the Federal Confidentiality of Alcohol and Drug Abuse Patient Records regulations: The Federal rules restrict any use of the information to criminally investigate or prosecute any alcohol or drug abuse patient.[facility]In the event this information is protected by the Federal Confidentiality of Alcohol and Drug Abuse Patient Records regulations: The Federal rules restrict any use of the information to criminally investigate or prosecute any alcohol or drug abuse patient.[facility]In the event this information is protected by the Federal Confidentiality of Alcohol and Drug Abuse Patient Records regulations: The Federal rules restrict any use of the information to criminally investigate or prosecute any alcohol or drug abuse patient.[facility]In the event this information is protected by the Federal Confidentiality of Alcohol and Drug Abuse Patient Records regulations: The Federal rules restrict any use of the information to criminally investigate or prosecute any alcohol or drug abuse patient.[facility]In the event this information is protected by the Federal Confidentiality of Alcohol and Drug Abuse Patient Records regulations: The Federal rules restrict any use of the information to criminally investigate or prosecute any alcohol or drug abuse patient.[facility]In the event this information is protected by the Federal Confidentiality of Alcohol and Drug Abuse Patient Records regulations: The Federal rules restrict any use of the information to criminally investigate or prosecute any alcohol or drug abuse patient.[facility]In the event this information is protected by the Federal Confidentiality of Alcohol and Drug Abuse Patient Records regulations: The Federal rules restrict any use of the information to criminally investigate or prosecute any alcohol or drug abuse patient.[facility]In the event this information is protected by the Federal Confidentiality of Alcohol and Drug Abuse Patient Records regulations: The Federal rules restrict any use of the information to criminally investigate or prosecute any alcohol or drug abuse patient.[facility]In the event this information is protected by the Federal Confidentiality of Alcohol and Drug Abuse Patient Records regulations: The Federal rules restrict any use of the information to criminally investigate or prosecute any alcohol or drug abuse patient.[facility]In the event this information is protected by the Federal Confidentiality of Alcohol and Drug Abuse Patient Records regulations: The Federal rules restrict any use of the information to criminally investigate or prosecute any alcohol or drug abuse patient.[facility]In the event this information is protected by the Federal Confidentiality of Alcohol and Drug Abuse Patient Records regulations: The Federal rules restrict any use of the information to criminally investigate or prosecute any alcohol or drug abuse patient.[facility]In the event this information is protected by the Federal Confidentiality of Alcohol and Drug Abuse Patient Records regulations: The Federal rules restrict any use of the information to criminally investigate or prosecute any alcohol or drug abuse patient.[facility]In the event this information is protected by the Federal Confidentiality of Alcohol and Drug Abuse Patient Records regulations: The Federal rules restrict any use of the information to criminally investigate or prosecute any alcohol or drug abuse patient.[facility]In the event this information is protected by the Federal Confidentiality of Alcohol and Drug Abuse Patient Records regulations: The Federal rules restrict any use of the information to criminally investigate or prosecute any alcohol or drug abuse patient.[facility]In the event this information is protected by the Federal Confidentiality of Alcohol and Drug Abuse Patient Records regulations: The Federal rules restrict any use of the information to criminally investigate or prosecute any alcohol or drug abuse patient.[facility]In the event this information is protected by the Federal Confidentiality of Alcohol and Drug Abuse Patient Records regulations: The Federal rules restrict any use of the information to criminally investigate or prosecute any alcohol or drug abuse patient.[facility]In the event this information is protected by the Federal Confidentiality of Alcohol and Drug Abuse Patient Records regulations: The Federal rules restrict any use of the information to criminally investigate or prosecute any alcohol or drug abuse patient.[facility]In the event this information is protected by the Federal Confidentiality of Alcohol and Drug Abuse Patient Records regulations: The Federal rules restrict any use of the information to criminally investigate or prosecute any alcohol or drug abuse patient.[facility]In the event this information is protected by the Federal Confidentiality of Alcohol and Drug Abuse Patient Records regulations: The Federal rules restrict any use of the information to criminally investigate or prosecute any alcohol or drug abuse patient.[facility]In the event this information is protected by the Federal Confidentiality of Alcohol and Drug Abuse Patient Records regulations: The Federal rules restrict any use of the information to criminally investigate or prosecute any alcohol or drug abuse patient.[facility]In the event this information is protected by the Federal Confidentiality of Alcohol and Drug Abuse Patient Records regulations: The Federal rules restrict any use of the information to criminally investigate or prosecute any alcohol or drug abuse patient.[facility] the event this information is protected by the Federal Confidentiality of Alcohol and Drug Abuse Patient Records regulations: The Federal rules restrict any use of the information to criminally investigate or prosecute any alcohol or drug abuse patient.[facility]In the event this information is protected by the Federal Confidentiality of Alcohol and Drug Abuse Patient Records regulations: The Federal rules restrict any use of the information to criminally investigate or prosecute any alcohol or drug abuse patient.[facility]In the event this information is protected by the Federal Confidentiality of Alcohol and Drug Abuse Patient Records regulations: The Federal rules restrict any use of the information to criminally investigate or prosecute any alcohol or drug abuse patient.[facility]In the event this information is protected by the Federal Confidentiality of Alcohol and Drug Abuse Patient Records regulations: The Federal rules restrict any use of the information to criminally investigate or prosecute any alcohol or drug abuse patient.[facility]In the event this information is protected by the Federal Confidentiality of Alcohol and Drug Abuse Patient Records regulations: The Federal rules restrict any use of the information to criminally investigate or prosecute any alcohol or drug abuse patient.[facility]In the event this information is protected by the Federal Confidentiality of Alcohol and Drug Abuse Patient Records regulations: The Federal rules restrict any use of the information to criminally investigate or prosecute any alcohol or drug abuse patient.[facility]In the event this information is protected by the Federal Confidentiality of Alcohol and Drug Abuse Patient Records regulations: The Federal rules restrict any use of the information to criminally investigate or prosecute any alcohol or drug abuse patient.[facility]In the event this information is protected by the Federal Confidentiality of Alcohol and Drug Abuse Patient Records regulations: The Federal rules restrict any use of the information to criminally investigate or prosecute any alcohol or drug abuse patient.[facility] HospitalIn the event this information is protected by the Federal Confidentiality of Alcohol and Drug Abuse Patient Records regulations: The Federal rules restrict any use of the information to criminally investigate or prosecute any alcohol or drug abuse patient.[facility]In the event this information is protected by the Federal Confidentiality of Alcohol and Drug Abuse Patient Records regulations: The Federal rules restrict any use of the information to criminally investigate or prosecute any alcohol or drug abuse patient.[facility]In the event this information is protected by the Federal Confidentiality of Alcohol and Drug Abuse Patient Records regulations: The Federal rules restrict any use of the information to criminally investigate or prosecute any alcohol or drug abuse patient.[facility]In the event this information is protected by the Federal Confidentiality of Alcohol and Drug Abuse Patient Records regulations: The Federal rules restrict any use of the information to criminally investigate or prosecute any alcohol or drug abuse patient.[facility]In the event this information is protected by the Federal Confidentiality of Alcohol and Drug Abuse Patient Records regulations: The Federal rules restrict any use of the information to criminally investigate or prosecute any alcohol or drug abuse patient.[facility]In the event this information is protected by the Federal Confidentiality of Alcohol and Drug Abuse Patient Records regulations: The Federal rules restrict any use of the information to criminally investigate or prosecute any alcohol or drug abuse patient.[facility]In the event this information is protected by the Federal Confidentiality of Alcohol and Drug Abuse Patient Records regulations: The Federal rules restrict any use of the information to criminally investigate or prosecute any alcohol or drug abuse patient.[facility]In the event this information is protected by the Federal Confidentiality of Alcohol and Drug Abuse Patient Records regulations: The Federal rules restrict any use of the information to criminally investigate or prosecute any alcohol or drug abuse patient.[facility]In the event this information is protected by the Federal Confidentiality of Alcohol and Drug Abuse Patient Records regulations: The Federal rules restrict any use of the information to criminally investigate or prosecute any alcohol or drug abuse patient.[facility] HospitalIn the event this information is protected by the Federal Confidentiality of Alcohol and Drug Abuse Patient Records regulations: The Federal rules restrict any use of the information to criminally investigate or prosecute any alcohol or drug abuse patient.[facility]In the event this information is protected by the Federal Confidentiality of Alcohol and Drug Abuse Patient Records regulations: The Federal rules restrict any use of the information to criminally investigate or prosecute any alcohol or drug abuse patient.[facility]In the event this information is protected by the Federal Confidentiality of Alcohol and Drug Abuse Patient Records regulations: The Federal rules restrict any use of the information to criminally investigate or prosecute any alcohol or drug abuse patient.[facility]In the event this information is protected by the Federal Confidentiality of Alcohol and Drug Abuse Patient Records regulations: The Federal rules restrict any use of the information to criminally investigate or prosecute any alcohol or drug abuse patient.[facility]In the event this information is protected by the Federal Confidentiality of Alcohol and Drug Abuse Patient Records regulations: The Federal rules restrict any use of the information to criminally investigate or prosecute any alcohol or drug abuse patient.[facility]In the event this information is protected by the Federal Confidentiality of Alcohol and Drug Abuse Patient Records regulations: The Federal rules restrict any use of the information to criminally investigate or prosecute any alcohol or drug abuse patient.[facility]In the event this information is protected by the Federal Confidentiality of Alcohol and Drug Abuse Patient Records regulations: The Federal rules restrict any use of the information to criminally investigate or prosecute any alcohol or drug abuse patient.[facility]In the event this information is protected by the Federal Confidentiality of Alcohol and Drug Abuse Patient Records regulations: The Federal rules restrict any use of the information to criminally investigate or prosecute any alcohol or drug abuse patient.[facility]In the event this information is protected by the Federal Confidentiality of Alcohol and Drug Abuse Patient Records regulations: The Federal rules restrict any use of the information to criminally investigate or prosecute any alcohol or drug abuse patient.[facility]In the event this information is protected by the Federal Confidentiality of Alcohol and Drug Abuse Patient Records regulations: The Federal rules restrict any use of the information to criminally investigate or prosecute any alcohol or drug abuse patient.[facility]In the event this information is protected by the Federal Confidentiality of Alcohol and Drug Abuse Patient Records regulations: The Federal rules restrict any use of the information to criminally investigate or prosecute any alcohol or drug abuse patient.[facility]In the event this information is protected by the Federal Confidentiality of Alcohol and Drug Abuse Patient Records regulations: The Federal rules restrict any use of the information to criminally investigate or prosecute any alcohol or drug abuse patient.[facility]In the event this information is protected by the Federal Confidentiality of Alcohol and Drug Abuse Patient Records regulations: The Federal rules restrict any use of the information to criminally investigate or prosecute any alcohol or drug abuse patient.[facility]In the event this information is protected by the Federal Confidentiality of Alcohol and Drug Abuse Patient Records regulations: The Federal rules restrict any use of the information to criminally investigate or prosecute any alcohol or drug abuse patient.[facility]In the event this information is protected by the Federal Confidentiality of Alcohol and Drug Abuse Patient Records regulations: The Federal rules restrict any use of the information to criminally investigate or prosecute any alcohol or drug abuse patient.[facility]In the event this information is protected by the Federal Confidentiality of Alcohol and Drug Abuse Patient Records regulations: The Federal rules restrict any use of the information to criminally investigate or prosecute any alcohol or drug abuse patient.[facility]In the event this information is protected by the Federal Confidentiality of Alcohol and Drug Abuse Patient Records regulations: The Federal rules restrict any use of the information to criminally investigate or prosecute any alcohol or drug abuse patient.[facility]In the event this information is protected by the Federal Confidentiality of Alcohol and Drug Abuse Patient Records regulations: The Federal rules restrict any use of the information to criminally investigate or prosecute any alcohol or drug abuse patient.[facility]In the event this information is protected by the Federal Confidentiality of Alcohol and Drug Abuse Patient Records regulations: The Federal rules restrict any use of the information to criminally investigate or prosecute any alcohol or drug abuse patient.[facility]In the event this information is protected by the Federal Confidentiality of Alcohol and Drug Abuse Patient Records regulations: The Federal rules restrict any use of the information to criminally investigate or prosecute any alcohol or drug abuse patient.[facility]In the event this information is protected by the Federal Confidentiality of Alcohol and Drug Abuse Patient Records regulations: The Federal rules restrict any use of the information to criminally investigate or prosecute any alcohol or drug abuse patient.[facility]In the event this information is protected by the Federal Confidentiality of Alcohol and Drug Abuse Patient Records regulations: The Federal rules restrict any use of the information to criminally investigate or prosecute any alcohol or drug abuse patient.[facility]In the event this information is protected by the Federal Confidentiality of Alcohol and Drug Abuse Patient Records regulations: The Federal rules restrict any use of the information to criminally investigate or prosecute any alcohol or drug abuse patient.[facility]In the event this information is protected by the Federal Confidentiality of Alcohol and Drug Abuse Patient Records regulations: The Federal rules restrict any use of the information to criminally investigate or prosecute any alcohol or drug abuse patient.[facility]In the event this information is protected by the Federal Confidentiality of Alcohol and Drug Abuse Patient Records regulations: The Federal rules restrict any use of the information to criminally investigate or prosecute any alcohol or drug abuse patient.[facility]In the event this information is protected by the Federal Confidentiality of Alcohol and Drug Abuse Patient Records regulations: The Federal rules restrict any use of the information to criminally investigate or prosecute any alcohol or drug abuse patient.[facility]In the event this information is protected by the Federal Confidentiality of Alcohol and Drug Abuse Patient Records regulations: The Federal rules restrict any use of the information to criminally investigate or prosecute any alcohol or drug abuse patient.[facility]In the event this information is protected by the Federal Confidentiality of Alcohol and Drug Abuse Patient Records regulations: The Federal rules restrict any use of the information to criminally investigate or prosecute any alcohol or drug abuse patient.[facility]In the event this information is protected by the Federal Confidentiality of Alcohol and Drug Abuse Patient Records regulations: The Federal rules restrict any use of the information to criminally investigate or prosecute any alcohol or drug abuse patient.[facility]In the event this information is protected by the Federal Confidentiality of Alcohol and Drug Abuse Patient Records regulations: The Federal rules restrict any use of the information to criminally investigate or prosecute any alcohol or drug abuse patient.[facility]In the event this information is protected by the Federal Confidentiality of Alcohol and Drug Abuse Patient Records regulations: The Federal rules restrict any use of the information to criminally investigate or prosecute any alcohol or drug abuse patient.[facility]In the event this information is protected by the Federal Confidentiality of Alcohol and Drug Abuse Patient Records regulations: The Federal rules restrict any use of the information to criminally investigate or prosecute any alcohol or drug abuse patient.[facility]In the event this information is protected by the Federal Confidentiality of Alcohol and Drug Abuse Patient Records regulations: The Federal rules restrict any use of the information to criminally investigate or prosecute any alcohol or drug abuse patient.[facility]In the event this information is protected by the Federal Confidentiality of Alcohol and Drug Abuse Patient Records regulations: The Federal rules restrict any use of the information to criminally investigate or prosecute any alcohol or drug abuse patient.[facility]In the event this information is protected by the Federal Confidentiality of Alcohol and Drug Abuse Patient Records regulations: The Federal rules restrict any use of the information to criminally investigate or prosecute any alcohol or drug abuse patient.[facility]In the event this information is protected by the Federal Confidentiality of Alcohol and Drug Abuse Patient Records regulations: The Federal rules restrict any use of the information to criminally investigate or prosecute any alcohol or drug abuse patient.[facility]In the event this information is protected by the Federal Confidentiality of Alcohol and Drug Abuse Patient Records regulations: The Federal rules restrict any use of the information to criminally investigate or prosecute any alcohol or drug abuse patient.[facility]In the event this information is protected by the Federal Confidentiality of Alcohol and Drug Abuse Patient Records regulations: The Federal rules restrict any use of the information to criminally investigate or prosecute any alcohol or drug abuse patient.[facility]In the event this information is protected by the Federal Confidentiality of Alcohol and Drug Abuse Patient Records regulations: The Federal rules restrict any use of the information to criminally investigate or prosecute any alcohol or drug abuse patient.[facility]In the event this information is protected by the Federal Confidentiality of Alcohol and Drug Abuse Patient Records regulations: The Federal rules restrict any use of the information to criminally investigate or prosecute any alcohol or drug abuse patient.[facility]In the event this information is protected by the Federal Confidentiality of Alcohol and Drug Abuse Patient Records regulations: The Federal rules restrict any use of the information to criminally investigate or prosecute any alcohol or drug abuse patient.[facility]In the event this information is protected by the Federal Confidentiality of Alcohol and Drug Abuse Patient Records regulations: The Federal rules restrict any use of the information to criminally investigate or prosecute any alcohol or drug abuse patient.[facility]In the event this information is protected by the Federal Confidentiality of Alcohol and Drug Abuse Patient Records regulations: The Federal rules restrict any use of the information to criminally investigate or prosecute any alcohol or drug abuse patient.[facility]In the event this information is protected by the Federal Confidentiality of Alcohol and Drug Abuse Patient Records regulations: The Federal rules restrict any use of the information to criminally investigate or prosecute any alcohol or drug abuse patient.[facility]In the event this information is protected by the Federal Confidentiality of Alcohol and Drug Abuse Patient Records regulations: The Federal rules restrict any use of the information to criminally investigate or prosecute any alcohol or drug abuse patient.[facility]In the event this information is protected by the Federal Confidentiality of Alcohol and Drug Abuse Patient Records regulations: The Federal rules restrict any use of the information to criminally investigate or prosecute any alcohol or drug abuse patient.[facility]In the event this information is protected by the Federal Confidentiality of Alcohol and Drug Abuse Patient Records regulations: The Federal rules restrict any use of the information to criminally investigate or prosecute any alcohol or drug abuse patient.[facility]In the event this information is protected by the Federal Confidentiality of Alcohol and Drug Abuse Patient Records regulations: The Federal rules restrict any use of the information to criminally investigate or prosecute any alcohol or drug abuse patient.[facility]In the event this information is protected by the Federal Confidentiality of Alcohol and Drug Abuse Patient Records regulations: The Federal rules restrict any use of the information to criminally investigate or prosecute any alcohol or drug abuse patient.[facility]In the event this information is protected by the Federal Confidentiality of Alcohol and Drug Abuse Patient Records regulations: The Federal rules restrict any use of the information to criminally investigate or prosecute any alcohol or drug abuse patient.[facility]In the event this information is protected by the Federal Confidentiality of Alcohol and Drug Abuse Patient Records regulations: The Federal rules restrict any use of the information to criminally investigate or prosecute any alcohol or drug abuse patient.[facility]In the event this information is protected by the Federal Confidentiality of Alcohol and Drug Abuse Patient Records regulations: The Federal rules restrict any use of the information to criminally investigate or prosecute any alcohol or drug abuse patient.[facility]In the event this information is protected by the Federal Confidentiality of Alcohol and Drug Abuse Patient Records regulations: The Federal rules restrict any use of the information to criminally investigate or prosecute any alcohol or drug abuse patient.[facility]In the event this information is protected by the Federal Confidentiality of Alcohol and Drug Abuse Patient Records regulations: The Federal rules restrict any use of the information to criminally investigate or prosecute any alcohol or drug abuse patient.[facility]In the event this information is protected by the Federal Confidentiality of Alcohol and Drug Abuse Patient Records regulations: The Federal rules restrict any use of the information to criminally investigate or prosecute any alcohol or drug abuse patient.[facility]In the event this information is protected by the Federal Confidentiality of Alcohol and Drug Abuse Patient Records regulations: The Federal rules restrict any use of the information to criminally investigate or prosecute any alcohol or drug abuse patient.[facility]In the event this information is protected by the Federal Confidentiality of Alcohol and Drug Abuse Patient Records regulations: The Federal rules restrict any use of the information to criminally investigate or prosecute any alcohol or drug abuse patient.[facility]In the event this information is protected by the Federal Confidentiality of Alcohol and Drug Abuse Patient Records regulations: The Federal rules restrict any use of the information to criminally investigate or prosecute any alcohol or drug abuse patient.[facility]In the event this information is protected by the Federal Confidentiality of Alcohol and Drug Abuse Patient Records regulations: The Federal rules restrict any use of the information to criminally investigate or prosecute any alcohol or drug abuse patient.[facility]In the event this information is protected by the Federal Confidentiality of Alcohol and Drug Abuse Patient Records regulations: The Federal rules restrict any use of the information to criminally investigate or prosecute any alcohol or drug abuse patient.[facility]In the event this information is protected by the Federal Confidentiality of Alcohol and Drug Abuse Patient Records regulations: The Federal rules restrict any use of the information to criminally investigate or prosecute any alcohol or drug abuse patient.[facility]In the event this information is protected by the Federal Confidentiality of Alcohol and Drug Abuse Patient Records regulations: The Federal rules restrict any use of the information to criminally investigate or prosecute any alcohol or drug abuse patient.[facility]In the event this information is protected by the Federal Confidentiality of Alcohol and Drug Abuse Patient Records regulations: The Federal rules restrict any use of the information to criminally investigate or prosecute any alcohol or drug abuse patient.[facility]In the event this information is protected by the Federal Confidentiality of Alcohol and Drug Abuse Patient Records regulations: The Federal rules restrict any use of the information to criminally investigate or prosecute any alcohol or drug abuse patient.[facility]In the event this information is protected by the Federal Confidentiality of Alcohol and Drug Abuse Patient Records regulations: The Federal rules restrict any use of the information to criminally investigate or prosecute any alcohol or drug abuse patient.[facility]In the event this information is protected by the Federal Confidentiality of Alcohol and Drug Abuse Patient Records regulations: The Federal rules restrict any use of the information to criminally investigate or prosecute any alcohol or drug abuse patient.[facility] HospitalIn the event this information is protected by the Federal Confidentiality of Alcohol and Drug Abuse Patient Records regulations: The Federal rules restrict any use of the information to criminally investigate or prosecute any alcohol or drug abuse patient.[facility] HospitalIn the event this information is protected by the Federal Confidentiality of Alcohol and Drug Abuse Patient Records regulations: The Federal rules restrict any use of the information to criminally investigate or prosecute any alcohol or drug abuse patient.[facility] HospitalIn the event this information is protected by the Federal Confidentiality of Alcohol and Drug Abuse Patient Records regulations: The Federal rules restrict any use of the information to criminally investigate or prosecute any alcohol or drug abuse patient.[facility] HospitalIn the event this information is protected by the Federal Confidentiality of Alcohol and Drug Abuse Patient Records regulations: The Federal rules restrict any use of the information to criminally investigate or prosecute any alcohol or drug abuse patient.[facility] HospitalIn the event this information is protected by the Federal Confidentiality of Alcohol and Drug Abuse Patient Records regulations: The Federal rules restrict any use of the information to criminally investigate or prosecute any alcohol or drug abuse patient.[facility] HospitalIn the event this information is protected by the Federal Confidentiality of Alcohol and Drug Abuse Patient Records regulations: The Federal rules restrict any use of the information to criminally investigate or prosecute any alcohol or drug abuse patient.[facility] HospitalIn the event this information is protected by the Federal Confidentiality of Alcohol and Drug Abuse Patient Records regulations: The Federal rules restrict any use of the information to criminally investigate or prosecute any alcohol or drug abuse patient.[facility] HospitalIn the event this information is protected by the Federal Confidentiality of Alcohol and Drug Abuse Patient Records regulations: The Federal rules restrict any use of the information to criminally investigate or prosecute any alcohol or drug abuse patient.[facility] HospitalIn the event this information is protected by the Federal Confidentiality of Alcohol and Drug Abuse Patient Records regulations: The Federal rules restrict any use of the information to criminally investigate or prosecute any alcohol or drug abuse patient.[facility] HospitalIn the event this information is protected by the Federal Confidentiality of Alcohol and Drug Abuse Patient Records regulations: The Federal rules restrict any use of the information to criminally investigate or prosecute any alcohol or drug abuse patient.[facility] HospitalIn the event this information is protected by the Federal Confidentiality of Alcohol and Drug Abuse Patient Records regulations: The Federal rules restrict any use of the information to criminally investigate or prosecute any alcohol or drug abuse patient.[facility] HospitalIn the event this information is protected by the Federal Confidentiality of Alcohol and Drug Abuse Patient Records regulations: The Federal rules restrict any use of the information to criminally investigate or prosecute any alcohol or drug abuse patient.[facility] HospitalIn the event this information is protected by the Federal Confidentiality of Alcohol and Drug Abuse Patient Records regulations: The Federal rules restrict any use of the information to criminally investigate or prosecute any alcohol or drug abuse patient.[facility] HospitalIn the event this information is protected by the Federal Confidentiality of Alcohol and Drug Abuse Patient Records regulations: The Federal rules restrict any use of the information to criminally investigate or prosecute any alcohol or drug abuse patient.[facility] HospitalIn the event this information is protected by the Federal Confidentiality of Alcohol and Drug Abuse Patient Records regulations: The Federal rules restrict any use of the information to criminally investigate or prosecute any alcohol or drug abuse patient.[facility] HospitalIn the event this information is protected by the Federal Confidentiality of Alcohol and Drug Abuse Patient Records regulations: The Federal rules restrict any use of the information to criminally investigate or prosecute any alcohol or drug abuse patient.[facility] HospitalIn the event this information is protected by the Federal Confidentiality of Alcohol and Drug Abuse Patient Records regulations: The Federal rules restrict any use of the information to criminally investigate or prosecute any alcohol or drug abuse patient.[facility] HospitalIn the event this information is protected by the Federal Confidentiality of Alcohol and Drug Abuse Patient Records regulations: The Federal rules restrict any use of the information to criminally investigate or prosecute any alcohol or drug abuse patient.[facility] HospitalIn the event this information is protected by the Federal Confidentiality of Alcohol and Drug Abuse Patient Records regulations: The Federal rules restrict any use of the information to criminally investigate or prosecute any alcohol or drug abuse patient.[facility] HospitalIn the event this information is protected by the Federal Confidentiality of Alcohol and Drug Abuse Patient Records regulations: The Federal rules restrict any use of the information to criminally investigate or prosecute any alcohol or drug abuse patient.[facility] HospitalIn the event this information is protected by the Federal Confidentiality of Alcohol and Drug Abuse Patient Records regulations: The Federal rules restrict any use of the information to criminally investigate or prosecute any alcohol or drug abuse patient.[facility] HospitalIn the event this information is protected by the Federal Confidentiality of Alcohol and Drug Abuse Patient Records regulations: The Federal rules restrict any use of the information to criminally investigate or prosecute any alcohol or drug abuse patient.[facility] HospitalIn the event this information is protected by the Federal Confidentiality of Alcohol and Drug Abuse Patient Records regulations: The Federal rules restrict any use of the information to criminally investigate or prosecute any alcohol or drug abuse patient.[facility] HospitalIn the event this information is protected by the Federal Confidentiality of Alcohol and Drug Abuse Patient Records regulations: The Federal rules restrict any use of the information to criminally investigate or prosecute any alcohol or drug abuse patient.[facility] HospitalIn the event this information is protected by the Federal Confidentiality of Alcohol and Drug Abuse Patient Records regulations: The Federal rules restrict any use of the information to criminally investigate or prosecute any alcohol or drug abuse patient.[facility] HospitalIn the event this information is protected by the Federal Confidentiality of Alcohol and Drug Abuse Patient Records regulations: The Federal rules restrict any use of the information to criminally investigate or prosecute any alcohol or drug abuse patient.[facility] HospitalIn the event this information is protected by the Federal Confidentiality of Alcohol and Drug Abuse Patient Records regulations: The Federal rules restrict any use of the information to criminally investigate or prosecute any alcohol or drug abuse patient.[facility] HospitalIn the event this information is protected by the Federal Confidentiality of Alcohol and Drug Abuse Patient Records regulations: The Federal rules restrict any use of the information to criminally investigate or prosecute any alcohol or drug abuse patient.[facility] HospitalIn the event this information is protected by the Federal Confidentiality of Alcohol and Drug Abuse Patient Records regulations: The Federal rules restrict any use of the information to criminally investigate or prosecute any alcohol or drug abuse patient.[facility] HospitalIn the event this information is protected by the Federal Confidentiality of Alcohol and Drug Abuse Patient Records regulations: The Federal rules restrict any use of the information to criminally investigate or prosecute any alcohol or drug abuse patient.[facility] HospitalIn the event this information is protected by the Federal Confidentiality of Alcohol and Drug Abuse Patient Records regulations: The Federal rules restrict any use of the information to criminally investigate or prosecute any alcohol or drug abuse patient.[facility] HospitalIn the event this information is protected by the Federal Confidentiality of Alcohol and Drug Abuse Patient Records regulations: The Federal rules restrict any use of the information to criminally investigate or prosecute any alcohol or drug abuse patient.[facility] HospitalIn the event this information is protected by the Federal Confidentiality of Alcohol and Drug Abuse Patient Records regulations: The Federal rules restrict any use of the information to criminally investigate or prosecute any alcohol or drug abuse patient.[facility] HospitalIn the event this information is protected by the Federal Confidentiality of Alcohol and Drug Abuse Patient Records regulations: The Federal rules restrict any use of the information to criminally investigate or prosecute any alcohol or drug abuse patient.[facility] HospitalIn the event this information is protected by the Federal Confidentiality of Alcohol and Drug Abuse Patient Records regulations: The Federal rules restrict any use of the information to criminally investigate or prosecute any alcohol or drug abuse patient.[facility] HospitalIn the event this information is protected by the Federal Confidentiality of Alcohol and Drug Abuse Patient Records regulations: The Federal rules restrict any use of the information to criminally investigate or prosecute any alcohol or drug abuse patient.[facility] HospitalIn the event this information is protected by the Federal Confidentiality of Alcohol and Drug Abuse Patient Records regulations: The Federal rules restrict any use of the information to criminally investigate or prosecute any alcohol or drug abuse patient.[facility] HospitalIn the event this information is protected by the Federal Confidentiality of Alcohol and Drug Abuse Patient Records regulations: The Federal rules restrict any use of the information to criminally investigate or prosecute any alcohol or drug abuse patient.[facility] HospitalIn the event this information is protected by the Federal Confidentiality of Alcohol and Drug Abuse Patient Records regulations: The Federal rules restrict any use of the information to criminally investigate or prosecute any alcohol or drug abuse patient.[facility] Care Teams (unrecognized sec tion and content) Brand Mgr Relationship Specialty Start Date End Date Israel Pruitt DO [address] [place] [address] PCP - General Internal Medicine 11/10/19 Laron Arreola [address] [place] [address] Orthopedics 11/22/20 Brand Mgr Relationship Specialty Start Date End Date Israel Pruitt, DO [address] [place] [address] PCP - General Internal Medicine 11/10/19 Laron Arreola [address] [place] [address] Orthopedics 11/22/20 Brand Mgr Relationship Specialty Start Date End Date JovannyjoanIsrael yanez, DO [address] [place] [address] PCP - General Internal Medicine 11/10/19 Laron Arreola [address] [place] [address] Orthopedics 11/22/20 Brand Mgr Relationship Specialty Start Date End Date JovannyjoanIsrael yanez, DO [address] [place] [address] PCP - General Internal Medicine 11/10/19 Laron Arreola [address] [place] [address] Orthopedics 11/22/20 Brand Mgr Relationship Specialty Start Date End Date JovannyjoanIsrael yanezil, DO [address] [place] [address] PCP - General Internal Medicine 11/10/19 Laron Arreola [address] [place] [address] Orthopedics 11/22/20 Israel Minor MD [address] [place] [facility] [place] [place] [address] Cardiology 02/27/22 Brand Mgr Relationship Specialty Start Date End Date ZabrinaIsrael yanez Hamzah, DO [address] [place] [address] PCP - General Internal Medicine 11/10/19 Laron Arreola [address] [place] [address] Orthopedics 11/22/20 Israel Minor MD [address] [place] [address] Cardiology 02/27/22 Brand Mgr Relationship Specialty Start Date End Date Edmond Israel DO Hamzah [address] [place] [address] PCP - General Internal Medicine 11/10/19 Laron Arreola [address] [place] [address] Orthopedics 11/22/20 Israel Minor MD [address] [place] [address] Cardiology 02/27/22 Brand Mgr Relationship Specialty Start Date End Date Israel Pruitt DO [address] [place] [address] PCP - General Internal Medicine 11/10/19 Laron Arreola [address] [place] [address] Orthopedics 11/22/20 Israel Minor MD [address] [place] [address] Cardiology 02/27/22 Brand Mgr Relationship Specialty Start Date End Date Israel Pruitt, DO [address] [place] [address] PCP - General Internal Medicine 11/10/19 Laron Arreola [address] [place] [address] Orthopedics 11/22/20 Israel Minor MD [address] [place] [facility] [place] [address] Cardiology 02/27/22 Brand Mgr Relationship Specialty Start Date End Date Israel Pruitt, DO [address] [place] [address] PCP - General Internal Medicine 11/10/19 Laron Arreola [address] [place] [address] Orthopedics 11/22/20 Israel Minor MD [address] [place] [address] Cardiology 02/27/22 Brand Mgr Relationship Specialty Start Date End Date Israel Pruitt, DO [address] [place] [address] PCP - General Internal Medicine 11/10/19 Laron Arreola [address] [place] [address] Orthopedics 11/22/20 Israel Minor MD [address] [place] [address] Cardiology 02/27/22 Brand Mgr Relationship Specialty Start Date End Date Israel Pruitt, DO [address] [place] [address] PCP - General Internal Medicine 11/10/19 Laron Arreola [address] [place] [address] Orthopedics 11/22/20 Israel Minor MD [address] [place] [address] Cardiology 02/27/22 Brand Mgr Relationship Specialty Start Date End Date Israel Pruitt, DO [address] [place] [address] PCP - General Internal Medicine 11/10/19 Laron Arreola [address] [place] [address] Orthopedics 11/22/20 Israel Minor MD [address] [place] [facility] [place] [address] Cardiology 02/27/22 Brand Mgr Relationship Specialty Start Date End Date Israel Pruitt, DO [address] [place] [address] PCP - General Internal Medicine 11/10/19 Laron Arreola [address] [place] [address] Orthopedics 11/22/20 Israel Minor MD [address] [place] [address] Cardiology 02/27/22 Brand Mgr Relationship Specialty Start Date End Date Israel Pruitt, DO [address] [place] [address] PCP - General Internal Medicine 11/10/19 Laron Arreola [address] [place] [address] Orthopedics 11/22/20 Israel Minor MD [address] [place] [address] Cardiology 02/27/22 Brand Mgr Relationship Specialty Start Date End Date Israel Pruitt DO [address] [place] [address] PCP - General Internal Medicine 11/10/19 Laron Arreola [address] [place] [address] Orthopedics 11/22/20 Israel Minor MD [address] [place] [address] Cardiology 02/27/22 Brand Mgr Relationship Specialty Start Date End Date Israel Pruitt DO [address] [place] [address] PCP - General Internal Medicine 11/10/19 Laron Arreola [address] [place] [address] Orthopedics 11/22/20 Israel Minor MD [address] [place] [facility] [place] [address] Cardiology 02/27/22 Brand Mgr Relationship Specialty Start Date End Date Israel Pruitt DO [address] [place] [address] PCP - General Internal Medicine 11/10/19 Laron Arreola [address] [place] [address] Orthopedics 11/22/20 Israel Minor MD [address] [place] [place] [place] [place] [address] Cardiology 02/27/22 Brand Mgr Relationship Specialty Start Date End Date Israel Pruitt, DO [address] [place] [address] PCP - General Internal Medicine 11/10/19 Laron Arreola [address] [place] [address] Orthopedics 11/22/20 Israel Minor MD [address] [place] [address] Cardiology 02/27/22 Brand Mgr Relationship Specialty Start Date End Date Israel Pruitt, DO [address] [place] [address] PCP - General Internal Medicine 11/10/19 Laron Arreola [address] [place] [address] Orthopedics 11/22/20 Israel Minor MD [address] [place] [facility] [address] Cardiology 02/27/22 Brand Mgr Relationship Specialty Start Date End Date Israel Pruitt, DO [address] [place] [address] PCP - General Internal Medicine 11/10/19 Laron Arreola [address] [place] [address] Orthopedics 11/22/20 Israel Minor MD [address] [place] [address] Cardiology 02/27/22 Brand Mgr Relationship Specialty Start Date End Date Israel Pruitt DO [address] [place] [address] PCP - General Internal Medicine 11/10/19 Laron Arreola [address] [place] [address] Orthopedics 11/22/20 Israel Minor MD [address] [place] [address] Cardiology 02/27/22 Brand Mgr Relationship Specialty Start Date End Date Israel Pruitt DO [address] [place] [address] PCP - General Internal Medicine 11/10/19 Laron Arreola [address] [place] [address] Orthopedics 11/22/20 Israel Minor MD [address] [place] [address] Cardiology 02/27/22 Tere Wang RN [address] [place] [address] Primary Care Field Coordinator Family Practice 07/10/22 09/08/22 Brand Mgr Relationship Specialty Start Date End Date Israel Pruitt DO [address] [place] [address] PCP - General Internal Medicine 11/10/19 Laron Arreola [address] [place] [address] Orthopedics 11/22/20 Israel Minor MD [address] [place] [facility] [place] [address] Cardiology 02/27/22 Tere Wang, JESSY [address] [place] [address] Primary Care Field Coordinator Family Practice 07/10/22 09/08/22 Brand Mgr Relationship Specialty Start Date End Date Israel Pruitt DO [address] [place] [address] PCP - General Internal Medicine 11/10/19 Laron Arreola [address] [facility] [place] [address] Orthopedics 11/22/20 Israel Minor MD [address] [place] [place] [address] Cardiology 02/27/22 Tere Wang RN [address] [place] [address] Primary Care Field Coordinator Family Practice 07/10/22 09/08/22 Brand Mgr Relationship Specialty Start Date End Date Israel Pruitt DO [address] [place] [address] PCP - General Internal Medicine 11/10/19 Laron Arreola [address] [place] [address] Orthopedics 11/22/20 Israel Minor MD [address] [place] [place] [address] Cardiology 02/27/22 Tere Wang RN [address] [place] [address] Primary Care Field Coordinator Family Practice 07/10/22 09/08/22 Brand Mgr Relationship Specialty Start Date End Date Israel Pruitt DO [address] [place] [address] PCP - General Internal Medicine 11/10/19 Laron Arreola [address] [place] [address] Orthopedics 11/22/20 Israel Minor MD [address] [place], [place] [address] [phone] Cardiology 02/27/22 Tere Wang, JESSY [address] [place] [address] Primary Care Field Coordinator [facility] 07/10/22 09/08/22 Brand Mgr Relationship Specialty Start Date End Date Israel Pruitt DO [address] [place] [address] PCP - General Internal Medicine 11/10/19 Laron Arreola [address] [place] [address] Orthopedics 11/22/20 Israel Minor MD [address] [facility] [place] [address] [phone] Cardiology 02/27/22 Tere Wang, JESSY [address] [place] [address] Primary Care Field Coordinator Family Medicine 07/10/22 09/08/22 Brand Mgr Relationship Specialty Start Date End Date Israel Pruitt DO [address] [place] [address] PCP - General Internal Medicine 11/10/19 Laron Arreola [address] [place] [address] Orthopedics 11/22/20 Israel Minor MD [address] [place], [place] [address] [phone] Cardiology 02/27/22 Tere Wang RN [address] [facility] [address] [place] [address] Primary Care Field Coordinator Family Medicine 07/10/22 09/08/22 Brand Mgr Relationship Specialty Start Date End Date Edmond Israel Hamzah, DO [address] [place] [address] PCP - General Internal Medicine 11/10/19 Laron Arreola [address] [place] [address] Orthopedics 11/22/20 Israel Minor MD [address] [place], [place] [address] [phone] Cardiology 02/27/22 Eveline Dean RN [address] [place] [address] Administrative Law Judge 08/08/22 Brand Mgr Relationship Specialty Start Date End Date Israel Pruitt, DO [address] [place] [address] PCP - General Internal Medicine 11/10/19 Laron Arreola [address] [place] [address] Orthopedics 11/22/20 Israel Minor MD [address] [place] [address] Cardiology 02/27/22 Eveline Dean RN [address] [place] [address] Administrative Law Judge 08/08/22 Brand Mgr Relationship Specialty Start Date End Date Israel Pruitt DO [address] [place] [address] PCP - General Internal Medicine 11/10/19 Laron Arreola [address] [facility] [place] [address] Orthopedics 11/22/20 Israel Minor MD [address] [place], [place] [address] [phone] Cardiology 02/27/22 Eveline Dean, JESSY [address] [place] [address] Administrative Law Judge 08/08/22 Brand Mgr Relationship Specialty Start Date End Date Israel Pruitt DO [address] [place] [address] PCP - General Internal Medicine 11/10/19 Laron Arreola [address] [facility] [address] [place] [address] Orthopedics 11/22/20 Israel Minor MD [address] [place], [place] 0[address] [phone] Cardiology 02/27/22 Eveline Dean RN [address] [place] [address] Administrative Law Judge 08/08/22 Randa Rowell DO [address] [facility] [address] [place], [place] [id number] Hematology/Oncology 09/08/22 Sanket Rob, DO [address] [place] [address] Neurology 09/08/22 Brand Mgr Relationship Specialty Start Date End Date Israel Pruitt DO [address] [place] [address] PCP - General Internal Medicine 11/10/19 Laron Arreola [address] [facility] [address] [place] [address] Orthopedics 11/22/20 Israel Minor MD [address] [place], [place] [id number] [phone] Cardiology 02/27/22 Eveline Dean, JESSY [address] [place], [place] [id number] Administrative Law Judge 08/08/22 Randa Rowell DO [address] [place] [address] [id number] Hematology/Oncology 09/08/22 Sanket Rob, [address] [place] [id number] Neurology 09/08/22 Brand Mgr Relationship Specialty Start Date End Date Israel Pruitt [address] [place] [address] PCP - General Internal Medicine 11/10/19 Laron Arreola [address] 571223 Orthopedics 11/22/20 Israel Minor MD [address] [place], [place] [id number] Cardiology 02/27/22 Eveline Dean, JESSY [address] [place] [address] Administrative Law Judge 08/08/22 Randa Rowell DO [address] [place] [address] [phone] Hematology/Oncology 09/08/22 Sanket Rob, DO [address] [place] [address] Neurology 09/08/22 Brand Mgr Relationship Specialty Start Date End Date Jovannyjoanrenata Israel Hamzah, DO [address] [place] [address] PCP - General Internal Medicine 11/10/19 Laron [place] 39[address] [facility] [address] [place] [address] Orthopedics 11/22/20 Israel Minor MD [address] [place], [place] 518646 Cardiology 02/27/22 Eveline Dean RN [address] [place], [place] [phone] Administrative Law Judge 08/08/22 Randa Rowell, DO 1946 [facility] [address] [place], [place] [phone] Hematology/Oncology 09/08/22 Sanket Rob, DO [address] [place] [address] Neurology 09/08/22 Brand Mgr Relationship Specialty Start Date End Date Israel Pruitt, DO [address] [place] [address] PCP - General Internal Medicine 11/10/19 Laron Arreola 3970 [facility] [address] [place] [address] Orthopedics 11/22/20 Israel Minor MD [address] [place] [address] Cardiology 02/27/22 Eveline Dean RN [address] [place], [place] [phone] Administrative Law Judge 08/08/22 Randa Rowell DO [address] [place] [address] [phone] Hematology/Oncology 09/08/22 Sanket Rob, DO [address] [place] [address] Neurology 09/08/22 Ten Weber, [facility] [address] [place] [address] Transitional Care Pharmacist Pharmacy 09/19/22 10/17/22 Brand Mgr Relationship Specialty Start Date End Date Israel Pruitt DO [address] [place] [address] PCP - General Internal Medicine 11/10/19 Laron Arreola [address] [phone] Orthopedics 11/22/20 Israel Minor MD [address] [place], [place] [id number] Cardiology 02/27/22 Eveline Dean RN [address] [place] [address] Administrative Law Judge 08/08/[address] Randa [address]DO [address] [place] [address] 310 [place], [place] [phone] Hematology/Oncology 09/08/22 Sanket Rob, DO [address] [place] [address] Neurology 09/08/22 Ten Weber, [facility] [address] [place] [address] Transitional Care Pharmacist Pharmacy 09/19/22 10/17/22 Brand Mgr Relationship Specialty Start Date End Date Zabrinarenata Israel Hamzah, DO [address] [place] [address] PCP - General Internal Medicine 11/10/19 Laron Arreola [address] [facility] [address] [place] [address] Orthopedics 11/22/20 Israel Minor MD [address] [place], [place] [address] [address] Cardiology 02/27/22 Eveline Dean, JESSY [address] [place], [place] [phone] Administrative Law Judge 08/08/22 Randa Rowell, DO 1946 [facility] [address] [place], [place] [phone] Hematology/Oncology 09/08/22 Sanket Rob, [address] [place] [address] Neurology 09/08/22 Ten Weber, [facility] [address] [place] [address] Transitional Care Pharmacist Pharmacy 09/19/22 10/17/22 Brand Mgr Relationship Specialty Start Date End Date Israel Pruitt, DO [address] [place] [address] PCP - General Internal Medicine 11/10/19 Laron Arreola [address] [place] [address] Orthopedics 11/22/20 Israel Minor MD [address] [place], [place] [phone] Cardiology 02/27/22 Eveline Dean, RN [address] [place] [address] Administrative Law Judge 08/08/22 Randa Rowell, DO [address] [place] [address] [phone] Hematology/Oncology 09/08/22 Sanket Rob, DO [address] [place] [address] Neurology 09/08/22 Ten Weber, [facility] [address] [place] [address] Transitional Care Pharmacist Pharmacy 09/19/22 10/17/22 Brand Mgr Relationship Specialty Start Date End Date Israel Pruitt, DO [address] [place] [address] PCP - General Internal Medicine 11/10/19 Laron Arreola [address] [place] [address] 102 [place], [place] [phone] Orthopedics 11/22/20 Israel Minor MD [address] [place], [place] 712196 Cardiology 02/27/22 Eveline Dean, JESSY [address] [place] [address] Administrative Law Judge 08/08/22 Randa Rowell, DO [facility] [phone] Hematology/Oncology 09/08/22 Sanket Rob, DO [address] [place] [address] Neurology 09/08/22 [facility] [address] [place] [address] Transitional Care Pharmacist Pharmacy 09/19/22 10/17/22 Brand Mgr Relationship Specialty Start Date End Date Israel Pruitt, DO [address] [place] [address] PCP - General Internal Medicine 11/10/19 Laron Arreola 9905 [facility] [address] [place], [place] [phone] Orthopedics 11/22/20 Israel Minor MD [address] [place], [place] [phone] Cardiology 02/27/22 Eveline Dean, JESSY [address] [place], [place] 6684431 Administrative Law Judge 08/08/22 Ranad Rowell DO 1946 [facility] 310 [place], [place] [phone] Hematology/Oncology 09/08/22 Sanket Rob, [address] [place] [address] Neurology 09/08/22 [facility] [address] [place] [address] Transitional Care Pharmacist Pharmacy 09/19/22 10/17/22 Brand Mgr Relationship Specialty Start Date End Date Israel Pruitt, DO [address] [place] [address] PCP - General Internal Medicine 11/10/19 Laron Arreola [address] [facility] [address] [address] [place], [place] 328093 Orthopedics 11/22/20 Israel Minor MD [address] [place], [place] [phone] Cardiology 02/27/22 Eveline Dean, RN [address] [place] [address] Administrative Law Judge 08/08/22 Randa Rowell, DO [address] [place] [address] 310 [place], [place] [phone] Hematology/Oncology 09/08/22 [facility] [address] [place] [address] Neurology 09/08/22 Ten Weber, [facility] [address] [place] [address] Transitional Care Pharmacist Pharmacy 09/19/22 10/17/22 Brand Mgr Relationship Specialty Start Date End Date Israel Pruitt [address] [place] [address] PCP - General Internal Medicine 11/10/19 Laron Arreola 0[address] [facility] [address] [place], [place] 383113 Orthopedics 11/22/20 Israel Minor MD [address] [place], [place] [phone] Cardiology 02/27/22 Eveline Dean, JESSY [address] [place], [place] [phone] Administrative Law Judge 08/08/22 Randa Rowell DO [address] [place] [address] 310 [place], [place] [phone] Hematology/Oncology 09/08/22 Sanket Rob, DO [address] [place] [address] Neurology 09/08/22 Ten Weber, [facility] [address] [place], [place] [phone] Transitional Care Pharmacist Pharmacy 09/19/22 10/17/22 Brand Mgr Relationship Specialty Start Date End Date Israel Pruitt, DO [address] [place] [address] PCP - General Internal Medicine 11/10/19 Laron Arreola 3975 [facility] [address] [place], [place] [phone] Orthopedics 11/22/20 Israel Minor MD [address] [place], [place] 263216 Cardiology 02/27/22 Eveline Dean, JESSY [address] [place] [address] Administrative Law Judge 08/08/22 Randa Rowell, DO 1946 [facility] 310 [place], [place] [phone] Hematology/Oncology 09/08/22 Sanket Rob, DO [address] [place] [address] Neurology 09/08/22 Ten Weber, [facility] [address] [place], [place] [phone] Transitional Care Pharmacist Pharmacy 09/19/22 10/17/22 Brand Mgr Relationship Specialty Start Date End Date Israel Pruitt DO [address] [place] [address] PCP - General Internal Medicine 11/10/19 Laron Arreola 3973 [facility] [address] [place] [address] Orthopedics 11/22/20 Israel Minor MD [address] [place], [place] [phone] Cardiology 02/27/22 Eveline Dean, RN [address] [place], [place] 5484631 Administrative Law Judge 08/08/22 Randa Rowell DO [address] [place] [address] [phone] Hematology/Oncology 09/08/22 Sanket Rob [address] [place] [address] Neurology 09/08/22 Brand Mgr Relationship Specialty Start Date End Date Israel Pruitt [address] [place] [address] PCP - General Internal Medicine 11/10/19 Laron Arreola [address] 100[address] Orthopedics 11/22/20 Israel Minor MD [address] [place], [place] [id number] Cardiology 02/27/22 Eveline Dean, JESSY [address] [place], [place] 5334731 Administrative Law Judge 08/08/22 Randa Rowell DO [address] [place] [address] 310 [place], [place] [phone] Hematology/Oncology 09/08/22 Sanket Rob, DO [address] [place] [address] Neurology 09/08/22 Brand Mgr Relationship Specialty Start Date End Date Israel Pruitt Hamzah, DO [address] [place] [address] PCP - General Internal Medicine 11/10/19 Laron Arreola 3970 [facility] [address] [place] [address] Orthopedics 11/22/20 Israel Minor MD [address] [place] [address] Cardiology 02/27/22 Eveline Dean RN [address] [place] [id number] Administrative Law Judge 08/08/22 Randa Rowell, DO 1946 [facility] [address] [place], [place] [phone] Hematology/Oncology 09/08/22 Sanket Rob, DO [address] [place] [address] Neurology 09/08/22 Brand Mgr Relationship Specialty Start Date End Date Zabrinarenata Israel Hamzah, DO [address] [place] [facility] [address] PCP - General Internal Medicine 11/10/19 Laron Arreola 3979 [facility] [address] [place] [address] Orthopedics 11/22/20 Israel Minor MD [address] [place] [address] Cardiology 02/27/22 Eveline Dean, JESSY [address] [place] [address] Administrative Law Judge 08/08/22 Randa Rowell, [address] [place] [address] [phone] Hematology/Oncology 09/08/22 Sanket Rob, DO [address] [place] [address] Neurology 09/08/22 Brand Mgr Relationship Specialty Start Date End Date Israel Pruitt, DO [address] [place] [address] PCP - General Internal Medicine 11/10/19 Laron Arreola [address] [place] [address] [address] Orthopedics 11/22/20 Israel Minor MD [address], [place] 042356 Cardiology 02/27/22 Eveline Dean RN 6[address] [place] [address] Administrative Law Judge 08/08/22 Randa Rowell, [address] [place] [address] [phone] Hematology/Oncology 09/08/22 Sanket Rob, DO [address] [place] [address] Neurology 09/08/22 Brand Mgr Relationship Specialty Start Date End Date Israel Pruitt DO [address] [place] [address] PCP - General Internal Medicine 11/10/19 Laron Arreola 3973 [facility] [address] [place] [address] Orthopedics 11/22/20 Israel Minor MD [address] [place] [address] Cardiology 02/27/22 Eveline Dean, JESSY [address] [place] [address] Administrative Law Judge 08/08/22 Randa Rowell, DO [address] [place] [address] [phone] Hematology/Oncology 09/08/22 Sanket Rob DO [address] [place] [address] Neurology 09/08/22 Brand Mgr Relationship Specialty Start Date End Date Israel Pruitt DO [address] [place] [address] PCP - General Internal Medicine 11/10/19 Laron Arreola 3975 [facility] [address] [place] [address] Orthopedics 11/22/20 Israel Minor MD [address] [place], [place] 660738 [phone] Cardiology 02/27/22 Eveline Dean RN [address] [place] [address] Administrative Law Judge 08/08/22 Randa Rowell DO [address] [place] [address] [phone] Hematology/Oncology 09/08/22 Sanket Rob DO [address] [place] [address] Neurology 09/08/22 Brand Mgr Relationship Specialty Start Date End Date ZabrinaIsrael yanez Hamzah, DO [address] [place] [address] PCP - General Internal Medicine 11/10/19 Laron Arreola 3976 [facility] [address] [place], [place] 947406 [phone] Orthopedics 11/22/20 Israel Minor MD [address] [place], [place] [id number] Cardiology 02/27/22 Eveline Dean, JESSY [address] [place], [place] 4485031 Administrative Law Judge 08/08/22 Randa Rowell DO [address] [phone] Hematology/Oncology 09/08/22 Sanket Rob, DO [address] [place] [address] Neurology 09/08/22 Brand Mgr Relationship Specialty Start Date End Date Edmond Israel Hamzah, DO [address] [place] [address] PCP - General Internal Medicine 11/10/19 Laron Arreola 3975 [facility] [address] [place], [place] 776915 [phone] Orthopedics 11/22/20 Israel Minor MD [address] [place], [place] 143204 [phone] Cardiology 02/27/22 Eveline Dean, JESSY [address] [place], [place] 0527131 Administrative Law Judge 08/08/22 [place] [address] [place] [address] 310 [place] [address] Hematology/Oncology 09/08/22 Sanket Rob, DO [address] [place] [address] Neurology 09/08/22 Brand Mgr Relationship Specialty Start Date End Date Israel Pruitt DO [address] [place] [address] PCP - General Internal Medicine 11/10/19 Laron Arreola [address] [facility] [address] [address] Orthopedics 11/22/20 Israel Minor MD [address] [place], [place] 113806 Cardiology 02/27/22 Eveline Dean, RN [address] [place] [id number] Administrative Law Judge 08/08/22 Randa Rowell, [address] [place] [address] Hematology/Oncology 09/08/22 Sanket Rob, DO [address] [place] [address] Neurology 09/08/22 Brand Mgr Relationship Specialty Start Date End Date Israel Pruitt DO [address] [place] [address] PCP - General Internal Medicine 11/10/19 Laron Arreola [address] [place] [address] Orthopedics 11/22/20 Israel Minor MD [address] [place], [place] [phone] Cardiology 02/27/22 Eveline Dean RN [address] [place] [address] Administrative Law Judge 08/08/22 Randa Rowell, DO [address] [place] [address] 310 [place], [place] [phone] Hematology/Oncology 09/08/22 Sanket Rob, DO [address] [place] [address] Neurology 09/08/22 Brand Mgr Relationship Specialty Start Date End Date Israel Pruitt DO [address] [place] [address] PCP - General Internal Medicine 11/10/19 Laron Arreola 3975 [facility] [address] [place] [address] Orthopedics 11/22/20 Israel Minor MD [address] [place], [place] [phone] Cardiology 02/27/22 Eveline Dean RN [address] [place] [address] Administrative Law Judge 08/08/22 Randa Rowell, DO [facility] [phone] Hematology/Oncology 09/08/22 Sanket Rob, DO [address] [place] [address] Neurology 09/08/22 Brand Mgr Relationship Specialty Start Date End Date Israel Pruitt DO [address] [place] [address] PCP - General Internal Medicine 11/10/19 Laron Arreola [address] [place] [address] Orthopedics 11/22/20 Israel Minor MD [address] [place], [place] 908888 [phone] Cardiology 02/27/22 Eveline Dean, JESSY [address] [place], [place] 1515131 Administrative Law Judge 08/08/22 Randa Rowell DO [address] [place] [address] [phone] Hematology/Oncology 09/08/22 Sanket Rob, [address] [place] [address] Neurology 09/08/22 Brand Mgr Relationship Specialty Start Date End Date Israel Pruitt [address] [place] [address] PCP - General Internal Medicine 11/10/19 Laron Arreola [address] [place] [address] Orthopedics 11/22/20 Israel Minor MD [address] [place], [place] 639382 [phone] Cardiology 02/27/22 Eveline Dean, JESSY [address] [place], [place] 1057731 Administrative Law Judge 08/08/22 aRnda Rowell DO [address] [place] [address] [phone] Hematology/Oncology 09/08/22 Sanket Rob, DO [address] [place] [address] Neurology 09/08/22 Brand Mgr Relationship Specialty Start Date End Date Israel Pruitt Hamzah, DO [address] [place] [address] PCP - General Internal Medicine 11/10/19 Laron Arreola 3978 [facility] [address] [place] [address] Orthopedics 11/22/20 Israel Minor MD [address] [place], [place] 506856 Cardiology 02/27/22 Eveline Dean, JESSY [address] [place] [address] Administrative Law Judge 08/08/22 Randa Rowell, DO 1946 [facility] 310 [place], [place] 801475 Hematology/Oncology 09/08/22 Sanket Rob, DO [address] [place] [address] Neurology 09/08/22 Brand Mgr Relationship Specialty Start Date End Date Zabrinarenata Israel Hamzah, DO [address] [place] [address] PCP - General Internal Medicine 11/10/19 aLron Arreola [address] [place] [address] Orthopedics 11/22/20 Israel Minor MD [address] [place], [place] 915104 [phone] Cardiology 02/27/22 Eveline Dean RN [address] [place], [place] [phone] Administrative Law Judge 08/08/22 Randa Rowell, DO [address] [place] [address] [phone] Hematology/Oncology 09/08/22 Sanket Rob, DO [address] [place] [address] Neurology 09/08/22 Brand Mgr Relationship Specialty Start Date End Date Israel Pruitt, DO [address] [place] [address] PCP - General Internal Medicine 11/10/19 Laron Arreola [address] [place] [address] Orthopedics 11/22/20 Israel Minor MD [address] [place] [address] Cardiology 02/27/22 Eveline Dean RN [address] [place] [address] Administrative Law Judge 08/08/22 Randa Rowell, DO [address] [place] [address] [phone] Hematology/Oncology 09/08/22 Sanket Rob, DO [address] [place] [address] Neurology 09/08/22 Brand Mgr Relationship Specialty Start Date End Date Israel Pruitt DO [address] [place] [address] PCP - General Internal Medicine 11/10/19 Laron Arreola [address] [place] [address] Orthopedics 11/22/20 Israel Minor MD [address] [place] [address] Cardiology 02/27/22 Eveline Dean, JESSY [address] [place], [place] 5952431 Administrative Law Judge 08/08/22 Randa Rowell DO [address] [place] [address] [phone] Hematology/Oncology 09/08/22 Sanket Rob DO [address] [place] [address] Neurology 09/08/22 Brand Mgr Relationship Specialty Start Date End Date Israel Pruitt DO [address] [place] [address] PCP - General Internal Medicine 11/10/19 Laron Arreola 3975 [facility] [address] [place] [address] Orthopedics 11/22/20 Israel Minor MD [address] [place], [place] 76637647 [phone] Cardiology 02/27/22 Eveline Dean, JESSY [address] [place] [address] Administrative Law Judge 08/08/22 Randa Rowell DO [address] [place] [address] [phone] Hematology/Oncology 09/08/22 Sanket Rob DO [address] [place] [address] Neurology 09/08/22 Brand Mgr Relationship Specialty Start Date End Date Israel Pruitt, DO [address] [place] [address] PCP - General Internal Medicine 11/10/19 Laron Arreola [address] [place], [place] 924061 [phone] Orthopedics 11/22/20 Israel Minor MD [address] [place], [place] 991122 [phone] Cardiology 02/27/22 Eveline Dean, JESSY [address] [place], [place] [phone] Administrative Law Judge 08/08/22 Randa Rowell, DO [facility] [address] [phone] Hematology/Oncology 09/08/22 Sanket Rob, DO [address] [place] [address] Neurology 09/08/22 Brand Mgr Relationship Specialty Start Date End Date Israel Pruitt, DO [address] [place] [address] PCP - General Internal Medicine 11/10/19 Laron Arreola [address] [place], [place] 274083 Orthopedics 11/22/20 Israel Minor MD [address] [place], [place] 217386 Cardiology 02/27/22 Eveline Dean, JESSY [address] [place] [address] Administrative Law Judge 08/08/22 Randa Rowell, DO [address] 016775 Hematology/Oncology 09/08/22 Sanket Rob, DO [address] [place] [address] Neurology 09/08/22 Brand Mgr Relationship Specialty Start Date End Date Israel Pruitt, DO [address] [place] [address] PCP - General Internal Medicine 11/10/19 Laron Arreola [address] [address] Orthopedics 11/22/20 Israel Minor MD [address] [place], [place] [phone] Cardiology 02/27/22 Eveline Dean, RN [address] [place] [id number] Administrative Law Judge 08/08/22 Randa Rowell DO [address] [address] Hematology/Oncology 09/08/22 Sanket Rob, DO [address] [place] [address] Neurology 09/08/22 Brand Mgr Relationship Specialty Start Date End Date Israel Pruitt DO [address] [place] [address] PCP - General Internal Medicine 11/10/19 Laron Arreola [address] [facility] [address] [place] [address] Orthopedics 11/22/20 Israel Minor MD [address] [place], [place] 875256 Cardiology 02/27/22 Eveline Dean RN 6[address] [place] [address] Administrative Law Judge 08/08/22 Randa Rowell, DO [address] [place] [address] [phone] Hematology/Oncology 09/08/22 Sanket Rob, DO [address] [place] [address] Neurology 09/08/22 Brand Mgr Relationship Specialty Start Date End Date Israel Pruitt DO [address] [place] [address] PCP - General Internal Medicine 11/10/19 Laron Arreola [address] [address] Orthopedics 11/22/20 Israel Minor MD [address] [place], [place] [phone] Cardiology 02/27/22 Eveline Dean RN 6[address] [place] [address] Administrative Law Judge 08/08/22 Randa Rowell, DO [address] [place] [address] [phone] Hematology/Oncology 09/08/22 Sanket Rob, DO [address] [place] [address] Neurology 09/08/22 Brand Mgr Relationship Specialty Start Date End Date Israel Pruitt DO [address] [place] [address] PCP - General Internal Medicine 11/10/19 Laron Arreola [address] [place] [address] Orthopedics 11/22/20 Israel Minor MD [address] [place], [place] 85434258 [phone] Cardiology 02/27/22 Eveline Dean, JESSY [address] [place] [address] Administrative Law Judge 08/08/22 Randa Rowell DO [address] [place] [address] [phone] Hematology/Oncology 09/08/22 Sanket Rob DO [address] [place] [address]438[address] Neurology 09/08/22 Brand Mgr Relationship Specialty Start Date End Date Israel Pruitt DO [address] [place] [address] PCP - General Internal Medicine 11/10/19 Laron Arreola [address] [place] [address] Orthopedics 11/22/20 Israel Minor MD [address] [place], [place] 706687 [phone] Cardiology 02/27/22 Eveline Dean, JESSY [address] [place], [place] [phone] Administrative Law Judge 08/08/22 Randa Rowell DO [address] [place] [address] [phone] Hematology/Oncology 09/08/22 Sanket Rob DO [address] [place] [address] Neurology 09/08/22 Brand Mgr Relationship Specialty Start Date End Date Israel Pruitt, DO [address] [place] [address] PCP - General Internal Medicine 11/10/19 Laron Arreola 3979 [facility] [address] [place] [address] Orthopedics 11/22/20 Israel Minor MD [address] [place], [place] [phone] Cardiology 02/27/22 Eveline Dean RN 6000 [place] [address] Administrative Law Judge 08/08/22 Randa Rowell, DO 1946 [facility] 310 [place], [place] 680525 Hematology/Oncology 09/08/22 Sanket Rob, [address] [place] [address] Neurology 09/08/22 Brand Mgr Relationship Specialty Start Date End Date ZabrinaIsrael yanez Hamzah, DO [address] [place] [address] PCP - General Internal Medicine 11/10/19 Laron Arreola [address] [place] [address] Orthopedics 11/22/20 Israel Minor MD [address] [place], [place] 488950 [phone] Cardiology 02/27/22 Eveline Dean RN 6000 [place] [address] Administrative Law Judge 08/08/22 Randa Rowell, DO [address] [place] [address] [phone] Hematology/Oncology 09/08/22 Sanket Rob, DO [address] [place] [address] Neurology 09/08/22 Brand Mgr Relationship Specialty Start Date End Date Israel Pruitt, DO [address] [place] [address] PCP - General Internal Medicine 11/10/19 Laron Arreola [address] [place] [address] Orthopedics 11/22/20 Israel Minor MD Replaced by [facility] [place] [address] Cardiology 02/27/22 Eveline Dean RN 6000 [place] [address] Administrative Law Judge 08/08/22 Randa Roewll, DO [address] [place] [address] [phone] Hematology/Oncology 09/08/22 Sanket Rob, DO [address] [place] [address] Neurology 09/08/22 Brand Mgr Relationship Specialty Start Date End Date Israel Pruitt DO [address] [place] [address] PCP - General Internal Medicine 11/10/19 Laron Arreola [address] [place], [place] 6522[address] Orthopedics 11/22/20 Israel Minor MD [address] [place], [place] [id number] Cardiology 02/27/22 Eveline Dean, JESSY [address] [place] [address] Administrative Law Judge 08/08/22 Randa Rowell, [address] [place], [place] [phone] Hematology/Oncology 09/08/22 [facility] [address] [place] [address] Neurology 09/08/22 Ruby Duff RN [address] [place], [place] [phone] Specialty Business Development Coordinator Hematology/Oncology 04/03/23 Brand Mgr Relationship Specialty Start Date End Date Israel Pruitt [address] [place] [address] PCP - General Internal Medicine 11/10/19 Laron Arreola [address] [phone] Orthopedics 11/22/20 Israel Minor MD [address] [place], [place] 144006 Cardiology 02/27/22 Eveline Dean, JESSY [address] [place] [address] Administrative Law Judge 08/08/22 Randa Rowell DO [address] [place] [address] [phone] Hematology/Oncology 09/08/22 Sanket Rob, DO [address] [place] [address] Neurology 09/08/22 Ruby Duff, RN [address] [place] [address] Specialty Business Development Coordinator Hematology/Oncology 04/03/23 Brand Mgr Relationship Specialty Start Date End Date Israel Pruitt, DO [address] [place] [address] PCP - General Internal Medicine 11/10/19 Laron Arreola [address] [place] [address] [address] [place] [address] Orthopedics 11/22/20 Israel Minor MD [address] [place], [place] [id number] Cardiology 02/27/22 Eveline Dean RN [address] [place], [place] [id number] Administrative Law Judge 08/08/22 Randa Rowell DO 1946 [facility] 310 [place], [place] [id number] Hematology/Oncology 09/08/22 Sanket Rob, DO [address] [place] [address] Neurology 09/08/22 Ruby Duff RN [address] [place] [address] Specialty Business Development Coordinator Hematology/Oncology 04/03/23 Brand Mgr Relationship Specialty Start Date End Date Israel Pruitt DO [address] [place] [address] PCP - General Internal Medicine 11/10/19 Laron Arreola [address] [facility] [address] [address] [place], [place] 406343 Orthopedics 11/22/20 Israel Minor MD [address] [place], [place] 931195 [phone] Cardiology 02/27/22 Eveline Dean, JESSY [address] [place], [place] [phone] Administrative Law Judge 08/08/22 Randa Rowell, DO 1946 [facility] [address] [place], [place] [phone] Hematology/Oncology 09/08/22 Sankte Rob, [address] [place] [address] Neurology 09/08/22 Ruby Duff, JESSY [address] [place] [address] Specialty Business Development Coordinator Hematology/Oncology 04/03/23 Brand Mgr Relationship Specialty Start Date End Date Israel Pruitt, [address] [place] [address] PCP - General Internal Medicine 11/10/19 Laron Arreola [address] [facility] [address] [place] [address] Orthopedics 11/22/20 Israel Minor MD [address] [place], [place] [id number] [phone] Cardiology 02/27/22 Eveline Dean, JESSY [address] [place] [address] Administrative Law Judge 08/08/22 Randa Rowell, DO [facility]6 [facility] 310 [place] [address] Hematology/Oncology 09/08/22 Sanket Rob, DO [address] [place] [address] Neurology 09/08/22 Ruby Duff, JESSY [address] [place] [address] Specialty Business Development Coordinator Hematology/Oncology 04/03/23 Brand Mgr Relationship Specialty Start Date End Date Israel Pruitt DO [address] [place] [address] PCP - General Internal Medicine 11/10/19 Laron Arreola 3975 [facility] [address] [place], [place] [phone] Orthopedics 11/22/20 Israel Minor MD [address] [place], [place] 399106 Cardiology 02/27/22 Eveline Dean, JESSY [address] [place] [address] Administrative Law Judge 08/08/22 Randa Rowell, 1946 [facility] [address] [place], [place] [phone] Hematology/Oncology 09/08/22 Sanket Rob, DO [address] [place] [address] Neurology 09/08/22 Ruby Duff, JESSY [address] [place] [address] Specialty Business Development Coordinator Hematology/Oncology 04/03/23 Brand Mgr Relationship Specialty Start Date End Date Israel Pruitt DO [address] [place] [address] PCP - General Internal Medicine 11/10/19 Laron Arreola [address] 863433 Orthopedics 11/22/20 Israel Minor MD [address] [place], [place] [id number] Cardiology 02/27/22 Eveline Dean, JESSY [address] [place] [address] Administrative Law Judge 08/08/22 Randa Rowell DO 1946 [facility] [address] [place], [place] [phone] Hematology/Oncology 09/08/22 Sanket Rob, [address] [place] [address] Neurology 09/08/22 Ruby Duff, JESSY [address] [place], [place] [phone] Specialty Business Development Coordinator Hematology/Oncology 04/03/23 Brand Mgr Relationship Specialty Start Date End Date Israel Pruitt DO [address] [place] [address] PCP - General Internal Medicine 11/10/19 Laron Arreola [address] [id number] Orthopedics 11/22/20 Israel Minor MD [address] [place], [place] [id number] Cardiology 02/27/22 Eveline Dean, JESSY [address] [place] [address] Administrative Law Judge 08/08/22 Randa Rowell, DO 1946 [facility] [address] [place], [place] 573745 Hematology/Oncology 09/08/22 Sanket Rob, [address] [place] [address] Neurology 09/08/22 Ruby Duff, JESSY [address] [facility] [place] [place] 625322 [phone] Specialty Business Development Coordinator Hematology/Oncology 04/03/23 Brand Mgr Relationship Specialty Start Date End Date Israel Pruitt, [address] [place] [address] PCP - General Internal Medicine 11/10/19 Laron Arreola 3975 [facility] [address] [place], [place] [phone] Orthopedics 11/22/20 Israel Minor MD [address] [place], [place] 789856 Cardiology 02/27/22 Randa Rowell, DO 1946 [facility] [address] [place], [place] [phone] Hematology/Oncology 09/08/22 Sanket Rob, [address] [place] [address] Neurology 09/08/22 Ruby Duff RN [address] [place] [address] Specialty Business Development Coordinator Hematology/Oncology 04/03/23 Ginna Em RN [address] [place] [address] Administrative Law Judge Unspecified 04/15/23 Brand Mgr Relationship Specialty Start Date End Date ZabrinaIsrael yanez Hamzah, DO [address] [place] [address] PCP - General Internal Medicine 11/10/19 Laron Arreola [address] [facility] [address] [place] [address] Orthopedics 11/22/20 Israel Minor MD [address] [place], [place] 466586 Cardiology 02/27/22 Randa Rowell DO 1946 [facility] [address] [place], [place] [phone] Hematology/Oncology 09/08/22 Sanket Rob, [address] [place] [address] Neurology 09/08/22 Ruby Duff, JESSY [address] [facility] [place] [address] Specialty Business Development Coordinator Hematology/Oncology 04/03/23 Ginna Em, RN [address] [place] [address] Administrative Law Judge Unspecified 04/15/23 Brand Mgr Relationship Specialty Start Date End Date Israel Pruitt DO [address] [place] [address] PCP - General Internal Medicine 11/10/19 Laron Arreola [address] [place] [address] Orthopedics 11/22/20 Israel Minor MD [address] [place], [place] 326536 Cardiology 02/27/22 Randa Rowell, DO 1946 [facility] 310 [place], [place] 694555 Hematology/Oncology 09/08/22 Sanket Rob, DO [address] [place] [address] Neurology 09/08/22 Ruby Duff RN [address] [place] [address] Specialty Business Development Coordinator Hematology/Oncology 04/03/23 Ginna Em RN [address] [place] [address] Administrative Law Judge Unspecified 04/15/23 Brand Mgr Relationship Specialty Start Date End Date Israel Pruitt, [address] [place] [address] PCP - General Internal Medicine 11/10/19 Laron Arreola [address] [phone] Orthopedics 11/22/20 Israel Minor MD [address] [place], [place] 040056 Cardiology 02/27/22 Randa Rowell, DO 1946 [facility] 310 [place], [place] 818805 Hematology/Oncology 09/08/22 Sanket Rob, DO [address] [place] [address] Neurology 09/08/22 Ruby Duff RN [address] [place] [address] Specialty Business Development Coordinator Hematology/Oncology 04/03/23 Ginna Em, RN [address] [place], [place] [phone] Administrative Law Judge Unspecified 04/15/23 Brand Mgr Relationship Specialty Start Date End Date Israel Pruitt, DO [address] [place] [address] PCP - General Internal Medicine 11/10/19 Laron Arreola [address] [place] [address] Orthopedics 11/22/20 Israel Minor MD Replaced by [facility] [place] [address] Cardiology 02/27/22 Randa Rowell, DO 1946 [facility] [address] [place], [place] [phone] Hematology/Oncology 09/08/22 Sanket Rob, DO [address] [place] [address] Neurology 09/08/22 Ruby Duff, JESSY [address] [place] [address] Specialty Business Development Coordinator Hematology/Oncology 04/03/23 Ginna Em, RN [address] [place] [address] Administrative Law Judge Unspecified 04/15/23 Brand Mgr Relationship Specialty Start Date End Date Zabrinarenata Israel Hamzah, DO [address] [place] [address] PCP - General Internal Medicine 11/10/19 Laron Arreola [address] [place] [address] Orthopedics 11/22/20 Israel Minor MD [address] [place], [place] 859641 [phone] Cardiology 02/27/22 Sanket Rob, DO [address] [place] [address] Neurology 09/08/22 Ruby Duff RN [address] [place] [address] Specialty Business Development Coordinator Hematology/Oncology 04/03/23 Ginna Em RN [address] [place], [place] [phone] Administrative Law Judge Unspecified 04/15/23 Brand Mgr Relationship Specialty Start Date End Date Israel Pruitt DO [address] [place] [address] PCP - General Internal Medicine 11/10/19 Laron Arreola 3975 [facility] [address] [place] [address] [id number] Orthopedics 11/22/20 Israel Minor MD [address] [place] [address] Cardiology 02/27/22 Sanket Rob, DO [address] [place] [address] Neurology 09/08/22 Ruby Duff RN [address] [place] [address] Specialty Business Development Coordinator Hematology/Oncology 04/03/23 Ginna Em RN [address] [place] [address] Administrative Law Judge Unspecified 04/15/23 Brand Mgr Relationship Specialty Start Date End Date Israel Pruitt, DO [address] [place] [address] PCP - General Internal Medicine 11/10/19 Laron Arreola 39[address] [facility] [address] [place] [address] Orthopedics 11/22/20 Israel Minor MD [address] [place], [place] [id number] [phone] Cardiology 02/27/22 Sanket Rob, DO [address] [place] [address] Neurology 09/08/22 Ruby Duff RN [address] [place] [address] Specialty Business Development Coordinator Hematology/Oncology 04/03/23 Ginna Em, RN [address] [place] [id number] Administrative Law Judge Unspecified 04/15/23 Brand Mgr Relationship Specialty Start Date End Date Israel Pruitt, DO [address] [place] [address] PCP - General Internal Medicine 11/10/19 Laron Arreola 3975 [facility] 102 [place] [address] Orthopedics 11/22/20 Israel Minor MD [address] [place] [address] Cardiology 02/27/22 Sanket Rob DO [address] [place] [address] Neurology 09/08/22 Ruby Duff, JESSY [address] [place] [address] Specialty Business Development Coordinator Hematology/Oncology 04/03/23 Ginna Em, RN [address] [place], [place] [phone] Administrative Law Judge Unspecified 04/15/23 Brand Mgr Relationship Specialty Start Date End Date Israel Pruitt, DO [address] [place] [address] PCP - General Internal Medicine 11/10/19 Laron Arreola [address] [place] [address] Orthopedics 11/22/20 Israel Minor MD [address] [place] [address] Cardiology 02/27/22 Sanket Rob, DO [address] [place] [address] Neurology 09/08/22 Ruby Duff RN [address] [place] [address] Specialty Business Development Coordinator Hematology/Oncology 04/03/23 Ginna Em, RN [address] [place] [address] Administrative Law Judge Unspecified 04/15/23 Brand Mgr Relationship Specialty Start Date End Date Israel Pruitt DO [address] [place] [address] PCP - General Internal Medicine 11/10/19 Laron Arreola [address] [place] [address] Orthopedics 11/22/20 Israel Minor MD [address] [place] [address] Cardiology 02/27/22 Sanket Rob, DO [address] [place] [address] Neurology 09/08/22 Ruby Duff RN [address] [place] [address] Specialty Business Development Coordinator Hematology/Oncology 04/03/23 Ginna Em, JESSY [address] [place], [place] [phone] Administrative Law Judge Unspecified 04/15/23 Brand Mgr Relationship Specialty Start Date End Date Israel Pruitt, DO [address] [place] [address] PCP - General Internal Medicine 11/10/19 Laron Arreola [address] [facility] [address] [place] [address] Orthopedics 11/22/20 Israel Minor MD [address] [place] [address] Cardiology 02/27/22 Sanket Rob, DO [address] [place] [address] Neurology 09/08/22 Ruby Duff RN [address] [place] [address] Specialty Business Development Coordinator Hematology/Oncology 04/03/23 Ginna Em, JESSY [address] [place], [place] 4040031 Administrative Law Judge Unspecified 04/15/23 Brand Mgr Relationship Specialty Start Date End Date Israel Pruitt DO [address] [place] [address] PCP - General Internal Medicine 11/10/19 Laron Arreola [address] [place] [address] Orthopedics 11/22/20 Israel Minor MD [address] [place], [place] 48928833 [phone] Cardiology 02/27/22 Sanket Rob, DO [address] [place] [address] Neurology 09/08/22 Ruby Duff RN [address] [place] [address] Specialty Business Development Coordinator Hematology/Oncology 04/03/23 Ginna Em, JESSY [address] [place] [id number] Administrative Law Judge Unspecified 04/15/23 Brand Mgr Relationship Specialty Start Date End Date JovannyjoanIsrael yanez, DO [address] [place] [address] PCP - General Internal Medicine 11/10/19 Laron Arreola [address] [place] [address] Orthopedics 11/22/20 Israel Minor MD [address] [place], [place] 318181 [phone] Cardiology 02/27/22 Sanket Rob, DO [address] [place] [address] Neurology 09/08/22 Ruby Duff, JESSY [address] [place], [place] 478681 Specialty Business Development Coordinator Hematology/Oncology 04/03/23 Ginna Em, RN [address] [place], [place] [phone] Administrative Law Judge Unspecified 04/15/23 Brand Mgr Relationship Specialty Start Date End Date Israel Pruitt, DO [address] [place] [address] PCP - General Internal Medicine 11/10/19 Laron Arreola [address] [facility] [address] [place] [address] Orthopedics 11/22/20 Israel Minor MD [address] [place], [place] 083786 Cardiology 02/27/22 Sanket Rob, DO [address] [place] [address] Neurology 09/08/22 Ruby Duff RN [address] [facility] [place] [address] Specialty Business Development Coordinator Hematology/Oncology 04/03/23 Ginna Em, JESSY [address] [place] [address] Administrative Law Judge Unspecified 04/15/23 Team Status: Active Member Role Status Dates Dr. Arturo Guerrero MD Family Provider Active Hamzah Pruitt Primary Care Provider Active Team Status: Inactive Member Role Status Dates Dr. Ned Dinh MD Attending Provider Active Team Status: Active Member Role Status Dates [facility] Attending Provider Active Team Status: Active Member Role Status Dates Dr. Pedro Diaz MD Emergency Provider Active Edmond Goodson Primary Care Provider Active Dr. Mary Prather MD Admit Provider, Attending Provid er Active Brand Mgr Relationship Specialty Start Date End Date Israel Pruitt, DO [address] [place] [facility] [address] PCP - General Internal Medicine 11/10/19 Laron Arreola [address] [facility] [address] [place] [address] Orthopedics 11/22/20 Israel Minor MD [address] [place], [place] 927916 Cardiology 02/27/22 Sanket Rob, DO [address] [place] [address] Neurology 09/08/22 Ruby Duff, JESSY [address] [place], [place] [phone] Specialty Business Development Coordinator Hematology/Oncology 04/03/23 Ginna Em, RN [address] [place], [place] [phone] Administrative Law Judge Unspecified 04/15/23 Team Status: Active Member Role [...] Dr. Pedro Diaz MD Emergency Provider Active HamzahEdmond gillespie Primary Care Provider Active Dr. Mary Prather [...] Dr. Homer Marsh MD Other Provider Active Brand Mgr Relationship Specialty Start Date End Date Israel Pruitt DO [address] [place] [address] PCP - General Internal Medicine 11/10/19 Laron Arreola [address] [place] [address] Orthopedics 11/22/20 Israel Minor MD [address] [place] [address] Cardiology 02/27/22 Sanket Rob DO [address] [place] [address] Neurology 09/08/22 Ruby Duff, JESSY [address] [facility] [place] 460881 Specialty Business Development Coordinator Hematology/Oncology 04/03/23 Ginna Em, RN [address] [place] [address] Administrative Law Judge Unspecified 04/15/23 Ileana Sosa RN Specialty Business Development Coordinator 05/19/23 Brand Mgr Relationship Specialty Start Date End Date Israel Pruitt DO [address] [place] [address] PCP - General Internal Medicine 11/10/19 Laron Arreola [address] [place], [place] 361543 Orthopedics 11/22/20 Israel Minor MD [address] [place] [address] Cardiology 02/27/22 Randa Rowell DO [facility]6 [facility] [address] [place], [place] 640785 Hematology/Oncology 09/08/22 05/04/23 Sanket Rob DO [address] [place] [address] Neurology 09/08/22 Ruby Duff, JESSY [address] [facility] [place] 0[address]01 Specialty Business Development Coordinator Hematology/Oncology 04/03/23 Ginna Em, JESSY [address] [place], [place] [phone] Administrative Law Judge Unspecified 04/15/23 Ileana Sosa RN Specialty Business Development Coordinator 05/19/23 Brand Mgr Relationship Specialty Start Date End Date Israel Pruitt DO [address] [place] [address] PCP - General Internal Medicine 11/10/19 Laron Arreola 3975 [facility] [address] [place], [place] 903713 Orthopedics 11/22/20 Israel Minor MD [address] [place], [place] 758686 Cardiology 02/27/22 Sanket Rob, [address] [place] [address] Neurology 09/08/22 Ruby Duff, JESSY [address] [place], [place] 271251 Specialty Business Development Coordinator Hematology/Oncology 04/03/23 Ginna Em, RN [address] [place], [place] [phone] Administrative Law Judge Unspecified 04/15/23 Ileana Sosa RN Specialty Business Development Coordinator 05/19/23 Brand Mgr Relationship Specialty Start Date End Date Israel Pruitt DO [address] [place] [address] PCP - General Internal Medicine 11/10/19 Laron Arreola 3975 [facility] [address] [place] [address] Orthopedics 11/22/20 Israel Minor MD [address] [place] [address] Cardiology 02/27/22 Sanket Rob, [address] [place] [address] Neurology 09/08/22 Ruby Duff RN [address] [place], [place] 54922691 Specialty Business Development Coordinator Hematology/Oncology 04/03/23 Ginna Em, RN [address] [place], [place] [phone] Administrative Law Judge Unspecified 04/15/23 Doup, Ileana, RN Specialty Business Development Coordinator 05/19/23 Brand Mgr Relationship Specialty Start Date End Date ZabrinaIsrael yanez [address] [place] [address] PCP - General Internal Medicine 11/10/19 Laron Arreola [address] [facility] [address] [place], [place] 8[address]683 Orthopedics 11/22/20 Israel Minor MD [address] [place], [place] 591166 Cardiology 02/27/22 Sanket Rob DO [address] [place] [address] Neurology 09/08/22 Ruby Duff, JESSY [address] [place], [place] 496181 Specialty Business Development Coordinator Hematology/Oncology 04/03/23 Ginna Em, RN [address] [place] [address] Administrative Law Judge Unspecified 04/15/23 Ileana Sosa RN Specialty Business Development Coordinator 05/19/23 Brand Mgr Relationship Specialty Start Date End Date ZabrinaIsrael yanez HamzahDO [address] [place] [address] PCP - General Internal Medicine 11/10/19 Laron Arreola [address] [facility] [address] [place] [address] Orthopedics 11/22/20 Israel Minor MD [address] [place] [address] Cardiology 02/27/22 Sanket Rob DO [address] [place] [address] Neurology 09/08/22 Ruby Duff RN [address] [place], [place] 199171 Specialty Business Development Coordinator Hematology/Oncology 04/03/23 Ginna Em, RN [address] [place], [place] [phone] Administrative Law Judge Unspecified 04/15/23 Ileana Sosa RN Specialty Business Development Coordinator 05/19/23 Brand Mgr Relationship Specialty Start Date End Date Israel Pruitt DO [address] [place] [address] PCP - General Internal Medicine 11/10/19 06/14/23 Laron Arreola 3975 [facility] [address] [place] [address]043 Orthopedics 11/22/20 Israel Minor MD [address] [place] [address] Cardiology 02/27/22 Sanket Rob, [address] [place] [address] Neurology 09/08/22 Ruby Duff RN [address] [place], [place] 360[address] Specialty Business Development Coordinator Hematology/Oncology 04/03/23 Ginna Em RN [address] [place] [address] Administrative Law Judge Unspecified 04/15/23 Ileana Sosa, RN Specialty Business Development Coordinator 05/19/23 Brand Mgr Relationship Specialty Start Date End Date Ronaldo Pleitez MD [address] [place], [place] 781031 PCP - General Internal Medicine 06/15/23 Laron Arreola [address] [facility] [address] [place] [address] Orthopedics 11/22/20 Israel Minor MD [address] [place] [address] Cardiology 02/27/22 Sanket Rob DO [address] [place] [address] Neurology 09/08/22 Ruby Duff, JESSY [address] [place] [address] Specialty Business Development Coordinator Hematology/Oncology 04/03/23 Ginna Em, JESSY [address] [place] [address] Administrative Law Judge Unspecified 04/15/23 Ileana Sosa, RN Specialty Business Development Coordinator 05/19/23 Team Status: Active Member Role Status Dates Dr. Arturo Guerrero MD Family Provider Active Out of Town Doctor Primary Care Provider Active Team Status: Active Member Role Status Dates Dr. Homer Khan MD Attending Provider Active Dr. Pedro Diaz MD Referring Provider Active Team Status: Active Member Role Status Dates Dr. Cristobal Villafuerte MD Attending Provider, Refe rring Provider Active Team Status: Inactive Member Role Status Dates [facility] Attending Provider Active Team Status: Active Member Role Status Dates edmond saravia Attending Provider Active Team Status: Inactive Member Role Status Dates Edmond Goodson Primary Care Provider Active Dr. Baljinder Galloway DO Attending Provider, Referring Prov ider Active Team Status: Active Member Role Status Dates Out of [facility] Doctor Primary Care Provider Active Ronaldo CASSIDY MD Attending Provider, Referring Provider Active Team Status: Inactive Member Role Status Dates edmond saravia Attending Provider Active Team Status: Inactive Member Role Status Dates Out of Town Doctor Primary Care Provider Active Ronaldo CASSIDY MD Attending Provider, Referring Provider Active Brand Mgr Relationship Specialty Start Date End Date Ronaldo Pleitez MD [address] [place] [address] PCP - General Internal Medicine 06/15/23 Laron Arreola 3975 [facility] [address] [place] [address] Orthopedics 11/22/20 Israel Minor MD Replaced by [facility] [place] [address] Cardiology 02/27/22 Sanket Rob DO [address] [place] [address] Neurology 09/08/22 Ruby Duff, JESSY [address] [facility] [place] 804391 Specialty Business Development Coordinator Hematology/Oncology 04/03/23 Ginna Em, JESSY [address] [place] [address] Administrative Law Judge Unspecified 04/15/23 Ileana Sosa RN Specialty Business Development Coordinator 05/19/23 Brand Mgr Relationship Specialty Start Date End Date Ronaldo Pleitez MD [address] [place] [address] PCP - General Internal Medicine 06/15/23 Laron Arreola [address] [facility] [address] [place] [address] Orthopedics 11/22/20 Israel Minor MD [address] [place] [address] Cardiology 02/27/22 Sanket Rob, [address] [place] [address] Neurology 09/08/22 Ruby Duff, JESSY [address] [facility] [place] [place] 259701 Specialty Business Development Coordinator Hematology/Oncology 04/03/23 Ginna Em RN [address] [place], [place] [phone] Administrative Law Judge Unspecified 04/15/23 Ileana Sosa, JESSY Specialty Business Development Coordinator 05/19/23 Brand Mgr Relationship Specialty Start Date End Date Ronaldo Pleitez MD [address] [place] [address] PCP - General Internal Medicine 06/15/23 Laron Arreola [address] [address] Orthopedics 11/22/20 Israel Minor MD [address] [place] [address] Cardiology 02/27/22 Sanket Rob DO [address] [place] [address] Neurology 09/08/22 Ruby Duff RN [address] [facility] [place] [phone] Specialty Business Development Coordinator Hematology/Oncology 04/03/23 Ginna Em, RN [address] [place] [address] Administrative Law Judge Unspecified 04/15/23 Ileana Sosa RN Specialty Business Development Coordinator 05/19/23 Brand Mgr Relationship Specialty Start Date End Date Ronaldo Pleitez MD [address] [place], [place] 39[address] PCP - General Internal Medicine 06/15/23 Laron Arreola [address] [facility] [address] [place] [address] Orthopedics 11/22/20 Israel Minor MD [address] [place] [address] Cardiology 02/27/22 Sanket Rob DO [address] [place] [address] Neurology 09/08/22 Ruby Duff, JESSY [address] [place], [place] [id number] Specialty Business Development Coordinator Hematology/Oncology 04/03/23 Ginna Em, RN [address] [place] [address] Administrative Law Judge Unspecified 04/15/23 Ileana Sosa RN Specialty Business Development Coordinator 05/19/23 Brand Mgr Relationship Specialty Start Date End Date Ronaldo Pleitez MD [address] [place] [address] PCP - General Internal Medicine 06/15/23 Laron Arreola [address] [facility] [address] [place], [place] [address]363 Orthopedics 11/22/20 Israel Minor MD [address] [place] [address] Cardiology 02/27/22 Sanket Rob DO [address] [place] [address] Neurology 09/08/22 Ruby Duff, JESSY [address] [place] [address] Specialty Business Development Coordinator Hematology/Oncology 04/03/23 Ginna Em, RN [address] [place], [place] [id number] Administrative Law Judge Unspecified 04/15/23 Ileana Sosa RN Specialty Business Development Coordinator 05/19/23 Brand Mgr Relationship Specialty Start Date End Date Ronaldo Pleitez MD [address] [place] [address] PCP - General Internal Medicine 06/15/23 Laron Arreola [address] [facility] [address] [address] Orthopedics 11/22/20 Israel Minor MD [address] [place] [address] Cardiology 02/27/22 Sanket Rob DO [address] [place] [address] Neurology 09/08/22 Ruby Duff RN [address] [place], [place] 885291 Specialty Business Development Coordinator Hematology/Oncology 04/03/23 Ginna Em, RN [address] [place], [place] [phone] Administrative Law Judge Unspecified 04/15/23 Ileana Sosa RN Specialty Business Development Coordinator 05/19/23 Brand Mgr Relationship Specialty Start Date End Date ZabrinarenataIsrael [address] [place], [place] 3195118 PCP - General Internal Medicine 11/10/19 06/14/23 Laron Arreola [address] [facility] [address] [place], [place] 414803 Orthopedics 11/22/20 Israel Minor MD [address] [place] [address] Cardiology 02/27/22 Sanket Rob [address] [place] [address] Neurology 09/08/22 Ruby Duff RN [address] [place], [place] [id number] Specialty Business Development Coordinator Hematology/Oncology 04/03/23 Ginna Em, RN [address] [place] [address] Administrative Law Judge Unspecified 04/15/23 Ileana Sosa RN Specialty Business Development Coordinator 05/19/23 Brand Mgr Relationship Specialty Start Date End Date Israel Pruitt DO [address] [place] [address] PCP - General Internal Medicine 11/10/19 06/14/23 Laron Arreola 3975 [facility] [address] [place] [address] Orthopedics 11/22/20 Israel Minor MD [address] [place], [place] 9[address]796 Cardiology 02/27/22 Randa Rowell DO [address] [facility] [address] [place], [place] 598885 Hematology/Oncology 09/08/22 05/04/23 Sanket Rob, [address] [place] [address] Neurology 09/08/22 Ruby Duff, JESSY [address] [place], [place] [id number] Specialty Business Development Coordinator Hematology/Oncology 04/03/23 Ginna Em, RN [address] [place] [address] Administrative Law Judge Unspecified 04/15/23 Brand Mgr Relationship Specialty Start Date End Date Israel Pruitt DO [address] [place] [address] PCP - General Internal Medicine 11/10/19 06/14/23 Ronaldo Pleitez MD [address] [place], [place] 84738691 PCP - General Internal Medicine 06/15/23 Laron Arreola [address] [facility] [address] [address] Orthopedics 11/22/20 Israel Minor MD [address] [place], [place] 917086 Cardiology 02/27/22 Sanket Rob DO [address] [place] [address] Neurology 09/08/22 Ruby Duff, JESSY [address] [facility] [place] [place] 340541 Specialty Business Development Coordinator Hematology/Oncology 04/03/23 Ginna Em, JESSY [address] [place], [place] [id number] Administrative Law Judge Unspecified 04/15/23 Ileana Sosa RN Specialty Business Development Coordinator 05/19/23 Brand Mgr Relationship Specialty Start Date End Date Ronaldo Pleitez MD [address] [place] [address] PCP - General Internal Medicine 06/15/23 Laron Arreola [address] [facility] [address] [address] Orthopedics 11/22/20 Israel Minor MD [address] [place] [address] Cardiology 02/27/22 Sanket Rob DO [address] [place] [address] Neurology 09/08/22 Ruby Duff, JESSY [address] [place], [place] 762831 Specialty Business Development Coordinator Hematology/Oncology 04/03/23 Ginna Em, RN [address] [place] [address] Administrative Law Judge Unspecified 04/15/23 Ileana Sosa RN Specialty Business Development Coordinator 05/19/23 Brand Mgr Relationship Specialty Start Date End Date Ronaldo Pleitez MD [address] [place], [place] 77200691 PCP - General Internal Medicine 06/15/23 Laron Arreola [address] [id number] Orthopedics 11/22/20 Israel Minor MD [address] [place], [place] 038116 Cardiology 02/27/22 Sanket Rob DO [address] [place] [address] Neurology 09/08/22 Ruby Duff, JESSY [address] [place], [place] 59781691 Specialty Business Development Coordinator Hematology/Oncology 04/03/23 Ginna Em, RN [address] [place] [address] Administrative Law Judge Unspecified 04/15/23 Ileana Sosa RN Specialty Business Development Coordinator 05/19/23 Brand Mgr Relationship Specialty Start Date End Date Ronaldo Pleitez MD [address] [place] [address] PCP - General Internal Medicine 06/15/23 Laron Arreola [address] [facility] [address] [place] [address] Orthopedics 11/22/20 Israel Minor MD [address] [place] [address] Cardiology 02/27/22 Sanket Rob DO [address] [place] [address] Neurology 09/08/22 Ruby Duff, JESSY [address] [facility] [place] [address] Specialty Business Development Coordinator Hematology/Oncology 04/03/23 Ginna Em, RN [address] [place] [id number] Administrative Law Judge Unspecified 04/15/23 Ileana Sosa RN Specialty Business Development Coordinator 05/19/23 Brand Mgr Relationship Specialty Start Date End Date Ronaldo Pleitez MD [address] [place] [address] PCP - General Internal Medicine 06/15/23 Laron Arreola [address] 785953 Orthopedics 11/22/20 Israel Minor MD [address] [place] [address] Cardiology 02/27/22 Sanket Rob, [address] [place] [address] Neurology 09/08/22 Ruby Duff, RN [address] [place] [place], [place] 099291 Specialty Business Development Coordinator Hematology/Oncology 04/03/23 Ginna Em, RN [address] [place] [address] Administrative Law Judge Unspecified 04/15/23 Ileana Sosa RN Specialty Business Development Coordinator 05/19/23 Brand Mgr Relationship Specialty Start Date End Date Ronaldo Pleitez MD [address] [place], [place] 669741 PCP - General Internal Medicine 06/15/23 Laron Arreola [address] [address] Orthopedics 11/22/20 Israel Minor MD [address] [place] [address] Cardiology 02/27/22 Sanket Rob DO [address] [place] [address] Neurology 09/08/22 Ruby Duff, JESSY [address] [place] [place], [place] 13761691 Specialty Business Development Coordinator Hematology/Oncology 04/03/23 Ginna Em, RN [address] [place] [address] Administrative Law Judge Unspecified 04/15/23 Doup, Ileana, RN Specialty Business Development Coordinator 05/19/23 Brand Mgr Relationship Specialty Start Date End Date Ronaldo Pleitez MD [address] [place], [place] 888141 PCP - General Internal Medicine 06/15/23 Laron Arreola [address] [facility] [address] [place] [address] Orthopedics 11/22/20 Israel Minor MD [address] [place], [place] 165856 Cardiology 02/27/22 Sanket Rob DO [address] [place] [address] Neurology 09/08/22 Ruby Duff, JESSY [address] [place] [address] Specialty Business Development Coordinator Hematology/Oncology 04/03/23 Ginna Em, RN [address] [place] [address] Administrative Law Judge Unspecified 04/15/23 Ileana Sosa RN Specialty Business Development Coordinator 05/19/23 Brand Mgr Relationship Specialty Start Date End Date Ronaldo Pleitez MD [address] [place] [address] PCP - General Internal Medicine 06/15/23 Laron Arreola [address] [facility] [address] [place] [address] Orthopedics 11/22/20 Israel Minor MD [address] [place] [address] Cardiology 02/27/22 Sanket Rob DO [address] [place] [address] Neurology 09/08/22 Ruby Duff RN [address] [place], [place] 644811 Specialty Business Development Coordinator Hematology/Oncology 04/03/23 iGnna Em, RN [address] [place] [address] Administrative Law Judge Unspecified 04/15/23 Ileana Sosa RN Specialty Business Development Coordinator 05/19/23 Brand Mgr Relationship Specialty Start Date End Date Ronaldo Pleitez MD [address] [place], [place] 39207691 PCP - General Internal Medicine 06/15/23 Laron Arreola [address] [facility] [address] [place], [place] 625383 Orthopedics 11/22/20 Israel Minor MD [address] [place] [address] Cardiology 02/27/22 Sanket Rob DO [address] [place] [address] Neurology 09/08/22 Ruby Duff, JESSY [address] [place], [place] 879641 Specialty Business Development Coordinator Hematology/Oncology 04/03/23 Ginna Em, JESSY [address] [place] [address] Administrative Law Judge Unspecified 04/15/23 Ileana Sosa RN Specialty Business Development Coordinator 05/19/23 Brand Mgr Relationship Specialty Start Date End Date Ronaldo Pleitez MD [address] [place] [address] PCP - General Internal Medicine 06/15/23 Laron Arreola [address] [facility] [address] [place] [address] Orthopedics 11/22/20 Israel Minor MD [address] [place], [place] [address] [place] [address] Cardiology 02/27/22 Sanket Rob DO [address] [place] [address] Neurology 09/08/22 Ruby Duff, JESSY [address] [place], [place] 095411 Specialty Business Development Coordinator Hematology/Oncology 04/03/23 Ginna Em, RN [address] [place], [place] 1698031 Administrative Law Judge Unspecified 04/15/23 Ileana Sosa RN Specialty Business Development Coordinator 05/19/23 Brand Mgr Relationship Specialty Start Date End Date Ronaldo Pleitez MD [address] [place], [place] 962701 PCP - General Internal Medicine 06/15/23 Laron Arreola [address] [facility] [address] [place] [address] Orthopedics 11/22/20 Israel Minor MD [address] [place] [address] Cardiology 02/27/22 Sanket Rob DO [address] [place] [address] Neurology 09/08/22 Ruby Duff, JESSY [address] [place], [place] 767441 Specialty Business Development Coordinator Hematology/Oncology 04/03/23 Ginna Em RN [address] [place], [place] 6784131 Administrative Law Judge Unspecified 04/15/23 Ileana Sosa RN Specialty Business Development Coordinator 05/19/23 Brand Mgr Relationship Specialty Start Date End Date Ronaldo Pleitez MD [address] [place], [place] 270211 PCP - General Internal Medicine 06/15/23 Laron Arreola [address] [address] Orthopedics 11/22/20 Israel Minor MD [address] [place] [address] Cardiology 02/27/22 Sanket Rob DO [address] [place] [address] Neurology 09/08/22 Ruby Duff, JESSY [address] [facility] [place] [place] [id number] Specialty Business Development Coordinator Hematology/Oncology 04/03/23 Ginna Em RN [address] [place] [address] Administrative Law Judge Unspecified 04/15/23 Ileana Sosa, RN Specialty Business Development Coordinator 05/19/23 Brand Mgr Relationship Specialty Start Date End Date Ronaldo Pleitez MD [address] [place], [place] 894091 PCP - General Internal Medicine 06/15/23 Laron Arreola [address] [facility] [address] [place], [place] 537203 Orthopedics 11/22/20 Israel Minor MD [address] [place], [place] [address] [address] Cardiology 02/27/22 Sanket Rob DO [address] [place] [address] Neurology 09/08/22 Ruby Duff, JESSY [address] [place] [address] Specialty Business Development Coordinator Hematology/Oncology 04/03/23 Ginna Em RN [address] [place] [address] Administrative Law Judge Unspecified 04/15/23 Ileana Sosa, RN Specialty Business Development Coordinator 05/19/23 Brand Mgr Relationship Specialty Start Date End Date Ronaldo Pleitez MD [address] [place], [place] 620181 PCP - General Internal Medicine 06/15/23 Laron Arreola [address] [facility] [address] [place], [place] [address] Orthopedics 11/22/20 Israel Minor MD [address] [place], [place] 323426 Cardiology 02/27/22 Sanket Rob DO [address] [place] [address] Neurology 09/08/22 Ruby Duff RN [address] [place], [place] 971881 Specialty Business Development Coordinator Hematology/Oncology 04/03/23 Ginna Em RN [address] [place] [id number] Administrative Law Judge Unspecified 04/15/23 Ileana Sosa RN Specialty Business Development Coordinator 05/19/23 Brand Mgr Relationship Specialty Start Date End Date Ronaldo Pleitez MD [address] [place], [place] 541111 PCP - General Internal Medicine 06/15/23 Laron Arreola 39[address] [facility] [address] [place] [address] Orthopedics 11/22/20 Israel Minor MD [address] [place] [address] Cardiology 02/27/22 Sanket Rob DO [address] [place] [address] Neurology 09/08/22 Ruby Duff RN [address] [place] [address] Specialty Business Development Coordinator Hematology/Oncology 04/03/23 Ginna Em, JESSY [address] [place] [address] Administrative Law Judge Unspecified 04/15/23 Ileana Sosa RN Specialty Business Development Coordinator 05/19/23 Brand Mgr Relationship Specialty Start Date End Date Ronaldo Pleitez MD [address] [place], [place] 252691 PCP - General Internal Medicine 06/15/23 Laron Arreola [address] [place], [place] 589363 Orthopedics 11/22/20 Israel Minor MD [address] [place] [address] Cardiology 02/27/22 Sanket Rob DO [address] [place] [address] Neurology 09/08/22 Ruby Duff, JESSY [address] [place], [place] 26[address] Specialty Business Development Coordinator Hematology/Oncology 04/03/23 Ginna Em, RN [address] [place] [address] Administrative Law Judge Unspecified 04/15/23 Ileana Sosa RN Specialty Business Development Coordinator 05/19/23 Brand Mgr Relationship Specialty Start Date End Date Ronaldo Pleitez MD [address] [place] [address] PCP - General Internal Medicine 06/15/23 Laron Arreola [address] [facility] [place] [place] 730373 Orthopedics 11/22/20 Israel Minor MD [address] [place], [place] 824656 Cardiology 02/27/22 Sanket Rob DO [address] [place] [address] Neurology 09/08/22 Ruby Duff RN [address] [place], [place] 93362691 Specialty Business Development Coordinator Hematology/Oncology 04/03/23 Ginna Em RN [address] [place], [place] 3158831 Administrative Law Judge Unspecified 04/15/23 Ileana Sosa RN Specialty Business Development Coordinator 05/19/23 Brand Mgr Relationship Specialty Start Date End Date Ronaldo Pleitez MD [address] [place], [place] 336841 PCP - General Internal Medicine 06/15/23 Laron Arreola [address] [facility] [address] [address] Orthopedics 11/22/20 Israel Minor MD [address] [place], [place] 818346 Cardiology 02/27/22 Sanket Rob DO [address] [place] [address] Neurology 09/08/22 Ruby Duff RN [address] [place], [place] 212071 Specialty Business Development Coordinator Hematology/Oncology 04/03/23 Ginna Em, RN [address] [place] [address] Administrative Law Judge Unspecified 04/15/23 Ileana Sosa RN Specialty Business Development Coordinator 05/19/23 Brand Mgr Relationship Specialty Start Date End Date Ronaldo Pleitez MD [address] [place], [place] 906581 PCP - General Internal Medicine 06/15/23 Laron Arreola [address] [address] Orthopedics 11/22/20 Israel Minor MD Replaced by [facility] [place] [address] [place] [address] Cardiology 02/27/22 Sanket Rob DO [address] [place] [address] Neurology 09/08/22 Ruby Duff RN [address] [place], [place] 54049691 Specialty Business Development Coordinator Hematology/Oncology 04/03/23 Ginna Em, JESSY [address] [place] [address] Administrative Law Judge Unspecified 04/15/23 Ileana Sosa RN Specialty Business Development Coordinator 05/19/23 Brand Mgr Relationship Specialty Start Date End Date Ronaldo Pleitez MD [address] [place], [place] 992691 PCP - General Internal Medicine 06/15/23 Laron Arreola [address] [facility] [address] [place], [place] 188533 Orthopedics 11/22/20 Israel Minor MD [address] [place], [place] 459076 Cardiology 02/27/22 Sanket Rob, [address] [place] [address] Neurology 09/08/22 Ruby Duff, JESSY [address] [facility] [place] [place] 330331 Specialty Business Development Coordinator Hematology/Oncology 04/03/23 Ginna Em RN [address] [place] [address] [phone] Administrative Law Judge Unspecified 04/15/23 Ileana Sosa RN Specialty Business Development Coordinator 05/19/23 Brand Mgr Relationship Specialty Start Date End Date Ronaldo Pleitez MD [address] [place], [place] 365371 PCP - General Internal Medicine 06/15/23 Laron Arreola [address] [facility] [address] [address] Orthopedics 11/22/20 Israel Minor MD [address] [place] [address] Cardiology 02/27/22 Sanket Rob DO [address] [place] [address] Neurology 09/08/22 Ruby Duff RN [address] [facility] [place] 389501 Specialty Business Development Coordinator Hematology/Oncology 04/03/23 Ginna Em, JESSY [address] [place] [id number] Administrative Law Judge Unspecified 04/15/23 Ileana Sosa RN Specialty Business Development Coordinator 05/19/23 Brand Mgr Relationship Specialty Start Date End Date Ronaldo Pleitez MD [address] [place], [place] 78767691 PCP - General Internal Medicine 06/15/23 Laron Arreola [address] [facility] [address] [place], [place] 528233 Orthopedics 11/22/20 Israel Minor MD [address] [place], [place] 369956 Cardiology 02/27/22 Sanket Rob DO [address] [place] [address] Neurology 09/08/22 Ruby Duff RN [address] [place], [place] 66276691 Specialty Business Development Coordinator Hematology/Oncology 04/03/23 Ileana Sosa RN Specialty Business Development Coordinator 05/19/23 Arabella Moreno, CAKE PRESS OPERATOR HELPER.PHOTO MASK PATTERN GENERATOR [address] [place] [address] Military Science Teacher Internal Medicine 10/17/24 Brand Mgr Relationship Specialty Start Date End Date Ronaldo Pleitez MD [address] [place] [address] PCP - General Internal Medicine 06/15/23 Laron Arreola [address] [address] Orthopedics 11/22/20 Israel Minor MD [address] [place] [address] Cardiology 02/27/22 Sanket Rob DO [address] [place] [address] Neurology 09/08/22 Ruby Duff RN [address] [place] [address] Specialty Business Development Coordinator Hematology/Oncology 04/03/23 Ileana Sosa RN Specialty Business Development Coordinator 05/19/23 Arabella Moreno, CAKE PRESS OPERATOR HELPER.PHOTO MASK PATTERN GENERATOR [address] [place] [address] Military Science Teacher Internal Medicine 10/17/24 Brand Mgr Relationship Specialty Start Date End Date Ronaldo Pleitez MD [address] [place] [address] PCP - General Internal Medicine 06/15/23 Laron Arreola [address] [address] Orthopedics 11/22/20 Israel Minor MD [address] [place] [address] Cardiology 02/27/22 Sanket Rob DO [address] [place] [address] Neurology 09/08/22 Ruby Duff, JESSY [address] [place], [place] 81447691 Specialty Business Development Coordinator Hematology/Oncology 04/03/23 Ileana Sosa RN Specialty Business Development Coordinator 05/19/23 Arabella Moreno, CAKE PRESS OPERATOR HELPER.[facility] [address] [place], [place] 73892691 Military Science Teacher Internal Medicine 10/17/24 Brand Mgr Relationship Specialty Start Date End Date Ronaldo Pleitez MD [address] [place], [place] 06368691 PCP - General Internal Medicine 06/15/23 Laron Arreola [address] 290[address] Orthopedics 11/22/20 Israel Minor MD [address] [place] [address] Cardiology 02/27/22 Sanket Rob DO [address] [place] [address] Neurology 09/08/22 Ruby Duff RN [address] [place], [place] 26385691 Specialty Business Development Coordinator Hematology/Oncology 04/03/23 Doup, Ileana, RN Specialty Business Development Coordinator 05/19/23 Arabella Moreno, CAKE PRESS OPERATOR HELPER.PHOTO MASK PATTERN GENERATOR [address] [place], [place] 834251 Military Science Teacher Internal Medicine 10/17/24 Brand Mgr Relationship Specialty Start Date End Date Ronaldo Pleitez MD [address] [place], [place] 097831 PCP - General Internal Medicine 06/15/23 Laron Arreola [address] [facility] [address] [place], [place] 706173 Orthopedics 11/22/20 Israel Minor MD [address] [place] [address] Cardiology 02/27/22 Sanket Rob DO [address] [facility] [address] [place] [address] Neurology 09/08/22 Ruby Duff, JESSY [address] [place] [address] Specialty Business Development Coordinator Hematology/Oncology 04/03/23 Ileana Sosa RN Specialty Business Development Coordinator 05/19/23 Arabella Moreno, CAKE PRESS OPERATOR HELPER.PHOTO MASK PATTERN GENERATOR [address] [place] [address] Military Science Teacher Internal Medicine 10/17/24 Brand Mgr Relationship Specialty Start Date End Date Ronaldo Pleitez MD [address] [place] [address] PCP - General Internal Medicine 06/15/23 Laron Arreola [address] [facility] [address] [place] [address] Orthopedics 11/22/20 Israel Minor MD [address] [place] [address] Cardiology 02/27/22 Sanket Rob DO [address] [facility] [address] [place] [address] Neurology 09/08/22 Ruby Duff, JESSY [address] [place] [address] Specialty Business Development Coordinator Hematology/Oncology 04/03/23 Ileana Sosa RN Specialty Business Development Coordinator 05/19/23 Arabella Moreno, CAKE PRESS OPERATOR HELPER.PHOTO MASK PATTERN GENERATOR [address] [place] [address] Military Science Teacher Internal Medicine 10/17/24 Brand Mgr Relationship Specialty Start Date End Date Ronaldo Pleitez MD [address] [place] [address] PCP - General Internal Medicine 06/15/23 Laron Arreola [address] [facility] [address] [place] [address] Orthopedics 11/22/20 Israel Minor MD [address] [place] [address] Cardiology 02/27/22 Sanket Rob DO 4048 [facility] [place] [address] Neurology 09/08/22 Ruby Duff RN [address] [place] [address] Specialty Business Development Coordinator Hematology/Oncology 04/03/23 Ileana Sosa RN Specialty Business Development Coordinator 05/19/23 Arabella Moreno, CAKE PRESS OPERATOR HELPER.PHOTO MASK PATTERN GENERATOR [address] [place] [address] Military Science Teacher Internal Medicine 10/17/24 Brand Mgr Relationship Specialty Start Date End Date Ronaldo Pleitez MD [address] [place], [place] 915671 PCP - General Internal Medicine 06/15/23 Laron Arreola 3975 [facility] [address] [place], [place] [address]323 Orthopedics 11/22/20 Israel Minor MD [address] [place] [address] Cardiology 02/27/22 Sanket Rob DO [address] [address] Neurology 09/08/22 Ruby Duff RN [address] [place] [place], [place] 836021 Specialty Business Development Coordinator Hematology/Oncology 04/03/23 Ileana Sosa RN Specialty Business Development Coordinator 05/19/23 Arabella Moreno, CAKE PRESS OPERATOR HELPER.PHOTO MASK PATTERN GENERATOR [address] [place] [address] Military Science Teacher Internal Medicine 10/17/24 Brand Mgr Relationship Specialty Start Date End Date Ronaldo Pleitez MD [address] [place] [address] PCP - General Internal Medicine 06/15/23 Laron Arreola [address] [facility] [address] [place] [address] Orthopedics 11/22/20 Israel Minor MD Replaced by [facility] [place] [address] Cardiology 02/27/22 Sanket Rob DO 4048 [facility] [address] [place] [address] Neurology 09/08/22 Ruby Duff, JESSY [address] [place], [place] 062391 Specialty Business Development Coordinator Hematology/Oncology 04/03/23 Ileana Sosa RN Specialty Business Development Coordinator 05/19/23 Arabella Moreno, CAKE PRESS OPERATOR HELPER.PHOTO MASK PATTERN GENERATOR [address] [place] [address] Military Science Teacher Internal Medicine 10/17/24 Brand Mgr Relationship Specialty Start Date End Date Ronaldo Pleitez MD [address] [place] [address] PCP - General Internal Medicine 06/15/23 Laron Arreola [address] [facility] [address] [place] [address] Orthopedics 11/22/20 Israel Minor MD [address] [place], [place] 725246 Cardiology 02/27/22 Sanket Rob DO [address] [facility] [address] [place] [address] Neurology 09/08/22 Ruby Duff RN [address] [place], [place] [id number] Specialty Business Development Coordinator Hematology/Oncology 04/03/23 Ileana Sosa RN Specialty Business Development Coordinator 05/19/23 Arabella Moreno, CAKE PRESS OPERATOR HELPER.[facility] [address] [place] [address] Military Science Teacher Internal Medicine 10/17/24 Brand Mgr Relationship Specialty Start Date End Date Ronaldo Pleitez MD [address] [place], [place] [address]51 PCP - General Internal Medicine 06/15/23 Laron Arreola [address] [facility] [address] [place], [place] [address] Orthopedics 11/22/20 Israel Minor MD [address] [place] [address] Cardiology 02/27/22 Sanket Rob, [address] [facility] [place] [address] [place] [address] Neurology 09/08/22 Ruby Duff RN [address] [place], [place] [address] Specialty Business Development Coordinator Hematology/Oncology 04/03/23 Ileana Sosa RN Specialty Business Development Coordinator 05/19/23 Arabella Moreno, CAKE PRESS OPERATOR HELPER.PHOTO MASK PATTERN GENERATOR [address] [place] [address] Military Science Teacher Internal Medicine 10/17/24 Brand Mgr Relationship Specialty Start Date End Date Ronaldo Pleitez MD [address] [place], [place] [address] PCP - General Internal Medicine 06/15/23 Laron Arreola [address] [facility] [address] [place], [place] [address] Orthopedics 11/22/20 Israel Minor MD [address] [place] [address] Cardiology 02/27/22 Sanket Rob DO [address] [facility] [place] [facility] [address] [place] [address] Neurology 09/08/22 Ruby Duff RN [address] [place] [address] Specialty Business Development Coordinator Hematology/Oncology 04/03/23 Ileana Sosa, RN Specialty Business Development Coordinator 05/19/23 Arabella Moreno, CAKE PRESS OPERATOR HELPER.PHOTO MASK PATTERN GENERATOR [address] [place] [address] Military Science Teacher Internal Medicine 10/17/24 Brand Mgr Relationship Specialty Start Date End Date Ronaldo Pleitez MD [address] [place] [address] PCP - General Internal Medicine 06/15/23 Laron Arreola [address] [facility] [address] [place] [address] Orthopedics 11/22/20 Israel Minor MD [address] [place] [address] Cardiology 02/27/22 Sanket Rob DO [address]8 [facility] [address] [place] [id number] Neurology 09/08/22 Ruby Duff, JESSY [address] [place] [address] Specialty Business Development Coordinator Hematology/Oncology 04/03/23 Ileana Sosa, JESSY Specialty Business Development Coordinator 05/19/23 Arabella Moreno, CAKE PRESS OPERATOR HELPER.PHOTO MASK PATTERN GENERATOR [address] [place] [address] Military Science Teacher Internal Medicine 10/17/24 Brand Mgr Relationship Specialty Start Date End Date Ronaldo Pleitez MD [address] [place] [address] PCP - General Internal Medicine 06/15/23 Laron Arreola [address] [facility] [address] [place] [address] Orthopedics 11/22/20 Israel Minor MD [address] [place] [address] Cardiology 02/27/22 Sanket Rob DO [address] [facility] [place] [facility] [address] [place] [address] Neurology 09/08/22 Ruby Duff RN [address] [place], [place] [address] Specialty Business Development Coordinator Hematology/Oncology 04/03/23 Ileana Sosa RN Specialty Business Development Coordinator 05/19/23 Arabella Moreno, CAKE PRESS OPERATOR HELPER.[facility] [address] [place] [address] Military Science Teacher Internal Medicine 10/17/24 Brand Mgr Relationship Specialty Start Date End Date Ronaldo Pleitez MD [address] [place], [place] 4633[address] PCP - General Internal Medicine 06/15/23 Laron Arreola [address] [facility] [address] [place], [place] [address] Orthopedics 11/22/20 Israel Minor MD [address] [place] [address] Cardiology 02/27/22 Sanket Rob DO [address] [facility] [place] [facility] [address] [place] [address] Neurology 09/08/22 Ruby Duff RN [address] [place] [address] Specialty Business Development Coordinator Hematology/Oncology 04/03/23 Ileana Sosa, RN Specialty Business Development Coordinator 05/19/23 Arabella Moreno, CAKE PRESS OPERATOR HELPER.PHOTO MASK PATTERN GENERATOR [address] [place] [address] Military Science Teacher Internal Medicine 10/17/24 Brand Mgr Relationship Specialty Start Date End Date Ronaldo Pleitez MD [address] [place] [address] PCP - General Internal Medicine 06/15/23 Laron Arreola [address] [facility] [address] [place] [address] Orthopedics 11/22/20 Israel Minor MD [address] [place] [address] Cardiology 02/27/22 Sanket Rob DO [address] [facility] [place] [facility] [address] [place] [address] Neurology 09/08/22 Ruby Duff, JESSY [address] [place] [address] Specialty Business Development Coordinator Hematology/Oncology 04/03/23 Ileana Sosa RN Specialty Business Development Coordinator 05/19/23 Arabella Moreno, CAKE PRESS OPERATOR HELPER.PHOTO MASK PATTERN GENERATOR [address] [place] [address] Military Science Teacher Internal Medicine 10/17/24 Brand Mgr Relationship Specialty Start Date End Date Ronaldo Pleitez MD [address] [place] [address] PCP - General Internal Medicine 06/15/23 Laron Arreola [address] [facility] [address] [place] [address] Orthopedics 11/22/20 Israel Minor MD [address] [place] [address] Cardiology 02/27/22 Sanket Rob DO [address]8 [facility] [address] [place] [address] Neurology 09/08/22 Ruby Duff RN [address] [place] [address] Specialty Business Development Coordinator Hematology/Oncology 04/03/23 Ileana Sosa RN Specialty Business Development Coordinator 05/19/23 Arabella Moreno, CAKE PRESS OPERATOR HELPER.PHOTO MASK PATTERN GENERATOR [address] [place], [place] 76[address] Military Science Teacher Internal Medicine 10/17/24 Brand Mgr Relationship Specialty Start Date End Date Ronaldo Pleitez MD [address] [place] [address] PCP - General Internal Medicine 06/15/23 Laron Arreola [address] [facility] [address] [place] [address] Orthopedics 11/22/20 Israel Minor MD [address] [place] [address] Cardiology 02/27/22 Sanket Rob DO [address] [facility] [place] [facility] [address] [place] [address] Neurology 09/08/22 Ruyb Duff RN [address] [place], [place] [address] Specialty Business Development Coordinator Hematology/Oncology 04/03/23 Ileana Sosa RN Specialty Business Development Coordinator 05/19/23 Arabella Moreno, CAKE PRESS OPERATOR HELPER.[facility] [address] [place], [place] 301[address] Military Science Teacher Internal Medicine 10/17/24 Brand Mgr Relationship Specialty Start Date End Date Ronaldo Pleitez MD [address] [place], [place] [address]41 PCP - General Internal Medicine 06/15/23 Laron Arreola [address] [facility] [address] [place], [place] [address] Orthopedics 11/22/20 Israel Minor MD [address] [place] [address] Cardiology 02/27/22 Sanket Rob DO [address] [facility] [place] [facility] [address] [place] [address] Neurology 09/08/22 Ruby Duff RN [address] [place], [place] 305[address] Specialty Business Development Coordinator Hematology/Oncology 04/03/23 Ileana Sosa RN Specialty Business Development Coordinator 05/19/23 Arabella Moreno, CAKE PRESS OPERATOR HELPER.PHOTO MASK PATTERN GENERATOR [address] [facility] [place] [address] Military Science Teacher Internal Medicine 10/17/24 Brand Mgr Relationship Specialty Start Date End Date Ronaldo Pleitez MD [address] [facility] [place], [place] [address]201 PCP - General Internal Medicine 06/15/23 Laron Arreola [address] [facility] [address] [place], [place] [address] Orthopedics 11/22/20 Israel Minor MD [address] [place], [place] [address] Cardiology 02/27/22 Sanket Rob DO [address] [facility] [place] [facility] [address] [place] [address] Neurology 09/08/22 Ruby Duff, JESSY [address] [place] [place] [address] Specialty Business Development Coordinator Hematology/Oncology 04/03/23 Ileana Sosa RN Specialty Business Development Coordinator 05/19/23 Arabella Moreno, CAKE PRESS OPERATOR HELPER.PHOTO MASK PATTERN GENERATOR [address] [facility] [place] [address] Military Science Teacher Internal Medicine 10/17/24 Brand Mgr Relationship Specialty Start Date End Date Ronaldo Pleitez MD [address] [facility] [place] [address] PCP - General Internal Medicine 06/15/23 Laron Arreola [address] [facility] [address] [place] [address] Orthopedics 11/22/20 Israel Minor MD [address] [place] [address] Cardiology 02/27/22 Sanket Rob DO [address] [facility] [place] [facility] [address] [place] [address] Neurology 09/08/22 Ruby Duff RN [address] [place] [address] Specialty Business Development Coordinator Hematology/Oncology 04/03/23 Ileana Sosa RN Specialty Business Development Coordinator 05/19/23 Arabella Moreno, CAKE PRESS OPERATOR HELPER.PHOTO MASK PATTERN GENERATOR [address] [place] [address] Military Science Teacher Internal Medicine 10/17/24 Brand Mgr Relationship Specialty Start Date End Date Ronaldo Pleitez MD [address] [place] [address] PCP - General Internal Medicine 06/15/23 Laron Arreola [address] [facility] [address] [place] [address] Orthopedics 11/22/20 Israel Minor MD [address] [place] [address] Cardiology 02/27/22 Sanket Rob DO [address] [facility] [place] [facility] [address] [place] [address] Neurology 09/08/22 Ruby Duff RN [address] [place], [place] [address] Specialty Business Development Coordinator Hematology/Oncology 04/03/23 Ileana Sosa RN Specialty Business Development Coordinator 05/19/23 Arabella Moreno, CAKE PRESS OPERATOR HELPER.[facility] [address] [place], [place] [address] Military Science Teacher Internal Medicine 10/17/24 Team Status: Active Member Role/Relationship Status Dates Dr. Ronaldo Pleitez MD Primary Care Provider Active Team Status: Inactive Member Role/Relationship Status Dates Dr. Ronaldo Pleitez MD Primary Care Provider Active Start: June 18, 2025 End: June 19, 2025 Dr. Bryanna Tijerina MD Emergency Provider Active S tart: June 18, 2025 End: June 19, 2025 Brand Mgr Relationship Specialty Start Date End Date Ronaldo Pleitez MD [address] [place], [place] [address]40[address] PCP - General Internal Medicine 06/15/23 Laron Arreola [address] [facility] [address] [place], [place] [address] Orthopedics 11/22/20 Israel Minor MD [address] [place] [address] Cardiology 02/27/22 Sanket Rob DO [address] [facility] [address] [place] [address] Neurology 09/08/22 Ruby Duff RN [address] [place] [address] Specialty Business Development Coordinator Hematology/Oncology 04/03/23 Ileana Sosa, RN Specialty Business Development Coordinator 05/19/23 Arabella Moreno, CAKE PRESS OPERATOR HELPER.PHOTO MASK PATTERN GENERATOR [address] [place] [address] Military Science Teacher Internal Medicine 10/17/24 Team Status: Inactive Member [...] Attending Provider Active Start: June 23, 2025 Brand Mgr Relationship Specialty Start Date End Date Ronaldo Pleitez MD [address] [place], [place] [address] PCP - General Internal Medicine 06/15/23 Laron Arreola [address] [facility] [address] [place] [address] Orthopedics 11/22/20 Israel Minor MD [address] [place] [address] Cardiology 02/27/22 Sanket Rob DO [address] [facility] [address] [place] [address] Neurology 09/08/22 Ruby Duff, JESSY [address] [place] [address] Specialty Business Development Coordinator Hematology/Oncology 04/03/23 Ileana Sosa, JESSY Specialty Business Development Coordinator 05/19/23 Arabella Moreno, CAKE PRESS OPERATOR HELPER.PHOTO MASK PATTERN GENERATOR [address] [place] [address] Military Science Teacher Internal Medicine 10/17/24 Team Status: Inactive Member Role/Relationship Status Dates Dr. Ronaldo Pleitez MD Primary Care Provider Active Start: June 23, 2025 End: June 26, 2025 Dr. Jere Gorman MD Emergency Provider Active S tart: June 23, 2025 End: June 26, 2025 Dr. Mary Prather MD Admit Provider Active Star t: June 23, 2025 End: June 26, 2025 Dr. Mary Prather MD Other Provider Active Star t: June 23, 2025 End: June 26, 2025 Dr. Marshal Rebolledo MD Attending Provider Active Start: June 23, 2025 End: June 26, 2025 Team Status: Active Member Role/Relationship Status Dates Dr. Ronaldo Pleitez MD Primary Care Provider Active Start: June 24, 2025 Dr. Jere Gorman MD Emergency Provider Active S tart: June 24, 2025 Dr. Mary Prather MD Admit Provider Active Star t: June 24, 2025 Dr. Mary Prather MD Other Provider Active Star t: June 24, 2025 Dr. Marshal Rebolledo MD Attending Provider Active Start: June 24, 2025 Dr. Marshal Rebolledo MD Other Provider Active Sta rt: June 24, 2025 Team Status: Active Member Role/Relationship Status Dates Dr. Ronaldo Pleitez MD Primary Care Provider Active Start: June 25, 2025 Dr. Jere Gorman MD Emergency Provider Active S tart: June 25, 2025 Dr. Mary Prather MD Admit Provider Active Star t: June 25, 2025 Dr. Mary Prather MD Other Provider Active Star t: June 25, 2025 Dr. Marshal Rebolledo MD Attending Provider Active Start: June 25, 2025 Dr. Marshal Rebolledo MD Other Provider Active Sta rt: June 25, 2025 Team Status: Active Member Role/Relationship Status Dates Dr. Ronaldo Pleitez MD Primary Care Provider Active Start: June 26, 2025 Dr. Jere Gorman MD Emergency Provider Active S tart: June 26, 2025 Dr. Mary Prather MD Admit Provider Active Star t: June 26, 2025 Dr. Mary Prather MD Other Provider Active Star t: June 26, 2025 Dr. Marshal Rebolledo MD Attending Provider Active Start: June 26, 2025 Dr. Marshal Rebolledo MD Other Provider Active Sta rt: June 26, 2025 Brand Mgr Relationship Specialty Start Date End Date Ronaldo Pleitez MD [address] [place] [address] PCP - General Internal Medicine 06/15/23 Laron Arreola [address] [facility] [address] [place] [address] Orthopedics 11/22/20 Israel Minor MD [address] [place], [place] [address] Cardiology 02/27/22 Sanket Rob DO 4048 [facility] [address] [place] [address] Neurology 09/08/22 Ruby Duff RN [address] [place], [place] [address] Specialty Business Development Coordinator Hematology/Oncology 04/03/23 Ileana Sosa RN Specialty Business Development Coordinator 05/19/23 Arabella Moreno, CAKE PRESS OPERATOR HELPER.[facility] [address] [place], [place] [address] Military Science Teacher Internal Medicine 10/17/24 Brand Mgr Relationship Specialty Start Date End Date Ronaldo Pleitez MD [address] [place], [place] [address] PCP - General Internal Medicine 06/15/23 Laron Arreola [address] [facility] [address] [place] [address] Orthopedics 11/22/20 Israel Minor MD [address] [place] [address] Cardiology 02/27/22 Sanket Rob DO [address] [facility] [place] [address] [place] [address] Neurology 09/08/22 Ruby Duff RN [address] [place] [address] Specialty Business Development Coordinator Hematology/Oncology 04/03/23 Ileana Sosa RN Specialty Business Development Coordinator 05/19/23 Arabella Moreno, CAKE PRESS OPERATOR HELPER.PHOTO MASK PATTERN GENERATOR [address] [place], [place] [address] Military Science Teacher Internal Medicine 10/17/24 Brand Mgr Relationship Specialty Start Date End Date Ronaldo Pleitez MD [address] [place], [place] [address] PCP - General Internal Medicine 06/15/23 Laron Arreola [address] [facility] [address] [place], [place] [address] Orthopedics 11/22/20 Israel Minor MD [address] [place], [place] [address] Cardiology 02/27/22 Sanket Rob DO [address] [facility] [place] [address] [place] [address] Neurology 09/08/22 Ileana Sosa RN Specialty Business Development Coordinator 05/19/23 Arabella Moreno, CAKE PRESS OPERATOR HELPER.PHOTO MASK PATTERN GENERATOR [address] [place], [place] [address] Military Science Teacher Internal Medicine 10/17/24 Iram Johnson, CAKE PRESS OPERATOR HELPER.PHOTO MASK PATTERN GENERATOR [address] [place], [place] [address] Nurse Practitioner Cardiology 07/13/25 Baljinder Galloway DO [address] [place], [place] [address] Hematology/Oncology 07/13/25 Brand Mgr Relationship Specialty Start Date End Date Ronaldo Pleitez MD [address] [place], [place] [address] PCP - General Internal Medicine 06/15/23 Laron Arreola [address] [facility] [address] [place], [place] [id number] Orthopedics 11/22/20 Israel Minor MD [address] [place], [place] [address] Cardiology 02/27/22 Sanket Rob DO [address] [facility] [address] [place] [address] Neurology 09/08/22 Ileana Sosa, RN Specialty Business Development Coordinator 05/19/23 Arabella Moreno, CAKE PRESS OPERATOR HELPER.PHOTO MASK PATTERN GENERATOR [address] [place], [place] [id number] Military Science Teacher Internal Medicine 10/17/24 Iram Johnson, CAKE PRESS OPERATOR HELPER.PHOTO MASK PATTERN GENERATOR [address] [facility] [address] [place], [place] [id number] Nurse Practitioner Cardiology 07/13/25 Baljinder Galloway DO [address] [place] [address] Hematology/Oncology 07/13/25 PRN Active and Recently Administ ered Medications [...] - Provid er: Jesus Manuel White MD, ) midazolam (PF) injection (VERSED) INTRAVENOUS, X (OR/PROCEDURE) [...] 1021 (New Bag/Syring e/Bottle - Provider: Juanita Tineo, RN)1044 (Infusion Complete - Provider: Juanita Tineo [...] BE BASED ON THE PRIMARY CLINICAL RECORDS. [facility]. provides no warranty or guarantee of the accuracy or completeness of information in this document.
--- NOTE | 2025-07-28 20:42 | RAD_ITS ---
PROCEDURE: CHEST PA AND LATERAL 07/28/2025 REASON FOR EXAM: SOB TECHNIQUE: Procedure Code: RADCXR Modality: DX Procedure: CHEST PA AND LATERAL COMPARISON: Chest x-ray 05/14/2023 FINDINGS: Hardware: Left-sided pacemaker. Multiple heart monitors. Heart: Heart size is mildly enlarged. Mediastinum: The mediastinal contour is unremarkable. Lungs: Mild pulmonary vascular congestion. No pneumothorax or sizable pleural effusion. Bones: Degenerative changes are identified within the thoracic spine. Bilateral shoulder arthroplasty. RAD/Chest PA and Lateral IMPRESSION: Mild cardiomegaly and mild pulmonary vascular congestion. Reading [facility]
[2025-07-28 20:58] LABS: Hematocrit 29.7 % (40-54); Hemoglobin 9.6 g/dL (13.0-16.5); Immature Granulocytes Count 0.070 X10^3/uL (0.0-0.0); Mean Corp Hgb Conc 32.3 g/dL (32-36); Mean Corpuscular Volume 108.0 fL (80-94); Mean Platelet Vol. 11.3 fl (6.2-12.0); NRBC Flagged by Analyzer 0.7 % (0-5); POSITIVE MORPHOLOGY YES; Platelet Count 207 K/mm3 (150-450); RBC Distribution Width CV 25.1 % (11.6-14.6); RBC Distribution Width SD 98.4 fl (35.1-43.9); Red Blood Count 2.75 M/mm3 (4.6-6.2); White Blood Count 6.9 K/mm3 (4.4-11.0)
[2025-07-28 21:00] LABS: Differential Indicated SCAN CRITERIA MET
[2025-07-28 21:15] LABS: AST(SGOT) 39 U/L (<=37); Alanine Aminotransfer ALT/SGPT 33 U/L (<=46); Albumin, Serum 4.0 g/dL (3.4-4.8); Alkaline Phosphatase 104 U/L (40-129); Anion Gap 10 (5-15); BUN 46 mg/dL (4-19); BUN/Creat Ratio 35.0 RATIO (10-20); Calcium,Total 8.9 mg/dL (7.6-11.0); Carbon Dioxide 30.3 mmol/L (21.0-32.0); Chloride 97 mmol/L (98-108); Globulin 2.8 g/dL (2.2-4.2); Glucose 125 mg/dL (70-99); Potassium 5.1 mmol/L (3.3-5.1)
[2025-07-28 21:46] LABS: Pro- Brain NATRIURETIC PEPTIDE 13649 pg/mL (<=1800); Troponin T High Sensitivity 176 ng/L (<=22)
[2025-07-28 21:49] LABS: Anisocytosis 2+; Differential Comment SCANNED
[2025-07-28 21:51] LABS: Hypochromasia 1+; Polychromasia 1+
[2025-07-28 21:56] LABS: Target Cells RARE
[2025-07-28 21:57] LABS: Basophilic Stippling RARE
--- NOTE | 2025-07-28 22:40 | PCM.HP.STD ---
HPI - General General Date of Admission: 07/28/25 Date of Service: 07/28/25 Chief Complaint: Dyspnea, orthopnea despite lasix, recent d/c [facility] on supplemental oxygen with HF Exac. HPI Narrative The patient is an 89 y/o M w/ PMHx: HFrEF, Chronic macrocytic anemia, CKD stage III unclear subtype or GFR trending, CAD status post CABG, Hx CVA, PAF, Hypothyroidism, HTN, HLD, CML, Chronic BL LE Lymphedema, Hx complete heart block status post pacemaker placement, Hx myasthenia gravis, Former tobacco use, recent admission at [facility] with discharge this past Thursday with HF Exacerbation placed on supplemental oxygen 2L NC and diuretics who presents to [facility] ED on 07/28/2025 with significant diffuse edema as well as shortness of breath with noted hypoxia requiring supplemental oxygen 2 L nasal cannula from recent admission at [facility] and increased dyspnea, orthopnea despite administration Lasix x 2 doses at facility prompting transition to ED for evaluation. Workup in the ED included T98.4, heart rate 82, BP 115/60, respiratory rate 18, 100% on 2 L nasal cannula with most recent repeat vitals heart rate 90, BP 117/78, 94% on room air, CBC with WBC 6.9, hemoglobin 9.6, MCV 108, platelet 207 with increased immature granulocytes, CMP with chloride 97, BUN/creatinine 46/1.31, GFR 52, glucose 125, AST 39 otherwise hepatic profile unremarkable, troponin 176 with repeat delta troponin 167, [place] [address], chest x-ray with mild cardiomegaly and mild pulmonary vascular congestion, EKG rate controlled fibrillation with right bundle branch block. In the ED patient administered Lasix 40 mg IV x 1. [facility] Medical History Chronic atrial fibrillation Anemia Restless legs syndrome Diverticulosis of intestine, part unspecified, without perforation or abscess without bleeding Vitamin D deficiency Nonrheumatic tricuspid (valve) insufficiency Acute on chronic combined systolic (congestive) and diastolic (congestive) heart failure Chronic anticoagulation Cellulitis Hypoxemia CMML (chronic myelomonocytic leukemia) Acquired immunocompromised state Lumbar stenosis Nocturnal hypoxemia Osteoarthritis Myasthenia gravis Cerebral vascular accident (~08/2022) Complete heart block Coronary artery disease (~09/2022) Hypothyroidism HLD (hyperlipidemia) Benign essential HTN Home Medications ?Medication ?Instructions ?Recorded ?Last Taken ?Type cholecalciferol (vitamin D3) 25 25 mcg PO DAILY vitamin 04/09/23 07/28/25 History mcg (1,000 unit) tablet cyanocobalamin (vitamin B-12) 1,000 mcg PO DAILY 04/09/23 05/14/23 History 1,000 mcg capsule multivitamin 1 tab PO DAILY supplement 04/09/23 07/28/25 History rivaroxaban 20 mg tablet (Xarelto) 20 mg PO QPM afib 04/09/23 07/27/25 History atorvastatin 20 mg tablet 20 mg PO QHS colesterol 05/14/23 07/27/25 History folic acid 1 mg tablet 1 mg PO BREAKFAST 30 days #30 tabs 05/18/23 Unknown Rx polyethylene glycol 3350 17 17 g PO DAILY PRN constipation 05/20/23 Unknown Rx gram/dose oral powder (Miralax) #238 grams nitroglycerin 0.4 mg sublingual 0.4 mg sublingual Q5M chest pain 06/23/25 Unknown History tablet furosemide 40 mg tablet 40 mg PO BID heart failure 30 days 06/26/25 07/28/25 Rx #0 tabs potassium chloride 20 mEq 40 meq (2 x 20 mEq) PO BIDCM dr 06/26/25 07/28/25 Rx tablet,extended release(part/cryst) ordered 30 days #120 tabs aspirin 81 mg tablet,delayed [address] ordered 07/28/25 07/28/25 History release (Adult Aspirin Regimen) empagliflozin 10 mg tablet 10 mg PO QAM sugar 07/28/25 07/28/25 History (Jardiance) levothyroxine 112 mcg capsule 112 mcg PO QDAY thyroid 07/28/25 07/28/25 History losartan 25 mg tablet 12.5 mg PO QDAY BP 07/28/25 07/28/25 History spironolactone 25 mg tablet 12.5 mg PO QDAY heart failure 07/28/25 07/27/25 History Allergy/AdvReac Type Severity Reaction Status Date / Time simvastatin Allergy Intermediate Other Verified 07/28/25 18:36 Family History Mother Heart disease Father Heart disease Surgical History History of ankle surgery (~12/2020) History of arthroplasty of right shoulder (~2008) Pacemaker (09/17/22) Hx of CABG (07/22/21) Social History household members: none Smoking Status: Former smoker how long ago did patient quit smokinyrs alcohol intake: current alcohol intake frequency: a few times a week details: 1-2 beers per week substance use type: does not use ROS ROS Narrative Admission Review of Systems: CONSTITUTIONAL: No weight loss, fever, chills, + weakness or fatigue. HEENT: Eyes: No visual loss, blurred vision, double vision or yellow sclerae. Ears, Nose, Throat: No hearing loss, sneezing, congestion, runny nose or sore throat. SKIN: No rash or itching, lesions, wounds except + occasional stage ecchymoses, abrasions. CARDIOVASCULAR: + Edema, orthopnea. No chest pain, chest pressure or chest discomfort, palpitations, syncopal events. RESPIRATORY: + Dyspnea, worse with exertion, occasional cough. No markedly productive sputum, wheezing, hemoptysis. GASTROINTESTINAL: No anorexia, nausea, vomiting or diarrhea, abdominal pain, melena, BRBPR. GENITOURINARY: No dysuria, frequency, urgency or retention. NEUROLOGICAL: No headache, dizziness, syncope, paralysis, ataxia, numbness or tingling in the extremities, focal weakness, change in bowel or bladder control, seizure. MUSCULOSKELETAL: + muscle, back pain, joint pain or stiffness. HEMATOLOGIC: + Chronic anemia, easy bleeding/bruising. LYMPHATICS: No enlarged nodes. No history of splenectomy. PSYCHIATRIC: No history of depression or anxiety. ENDOCRINOLOGIC: No reports of sweating, cold or heat intolerance. No polyuria or polydipsia. ALLERGIES: No history of asthma, hives, eczema or rhinitis. Vital Signs Vital Signs Vital Signs: 07/28/25 18:37 07/28/25 19:36 07/28/25 20:00 Temperature 98.4 F Temperature Source Oral Pulse Rate 82 82 91 Respiratory Rate 18 Respiratory Effort Blood Pressure 115/60 109/65 109/65 Blood Pressure Mean 78 79 79 Pulse Ox 100 98 98 Oxygen Delivery Method Nasal Cannula Nasal Cannula Nasal Cannula Oxygen Flow Rate (L/min) 2 2 2 07/28/25 20:29 07/28/25 20:53 07/28/25 21:00 Temperature Temperature Source Pulse Rate 90 Respiratory Rate Respiratory Effort Normal Non-Labored Blood Pressure 117/78 Blood Pressure Mean 91 Pulse Ox 100 Oxygen Delivery Method Nasal Cannula Oxygen Flow Rate (L/min) 2 07/28/25 21:13 Temperature Temperature Source Pulse Rate Respiratory Rate Respiratory Effort Blood Pressure Blood Pressure Mean Pulse Ox 94 Oxygen Delivery Method Room Air Oxygen Flow Rate (L/min) Physical Exam Narrative Physical Examination: General: Awake, alert, oriented x 3 and cooperative, seated upright in the ED bed, fatigued, no obvious distress. Skin: Normal color, normal turgor, no icterus, no cyanosis except occasional stage ecchymoses, abrasion. HEENT: AT/NC, EOMI, PERRLA, MMM, no carotid bruits, + JVD noted. Lungs: Diminished, greater bases, mildly increased respiratory rate but no distress, mild rales noted the bases, no rhonchi or wheezing. Heart: Irregular, rate controlled, no gallop, rub audible. Abdomen: Soft, obese, NTTP, ND, mildly hyperactive BS, no markedly appreciated HSM. Extremities: No cyanosis, no clubbing, notable pedal to distal to the knee 2-3+ pitting edema, some edema also noted in the hands and distal forearms. Neurological: Patient awake, alert, oriented as noted, cognitive function intact; pupils equally reactive to light and accommodation, cranial nerves grossly normal, moving all 4 extremities, no focal deficits, strength moderately to severely globally decreased. Psychiatric: Affect appears flat, fatigued, no acute evidence of depressive or anxiety feelings. Results Lab / Micro Data 07/28/25 20:20 07/28/25 20:20 Labs: Laboratory Results - last 24 hr 07/28/25 20:20: WBC 6.9, RBC 2.75 L, Hgb 9.6 L, Hct 29.7 L, MCV 108.0 H, MCH 34.9 H, MCHC 32.3, RDW Std Deviation 98.4 H, RDW Coeff of Luis Alberto 25.1 H, Plt Count 207, MPV 11.3, Immature Gran % (Auto) 1.000 H, Neut % (Auto) 66.8, Lymph % (Auto) 13.8 L, [place] % (Auto) 15.6 H, Eos % (Auto) 1.6, Baso % (Auto) 1.2 H, Absolute Neuts (auto) 4.6, Absolute Lymphs (auto) 0.95, Nucleated RBC % 0.7, Differential Comment SCANNED, Platelet Estimate ADEQUATE, Polychromasia 1+, Hypochromasia 1+, Basophilic Stippling RARE, Anisocytosis 2+, Target Cells RARE, Ovalocytes 1+, Sodium 138, Potassium 5.1, Chloride 97 L, Carbon Dioxide 30.3, Anion Gap 10, BUN 46 H, Creatinine 1.31 H, Est GFR (MDRD) Non-Af 52 L, BUN/Creatinine Ratio 35.0 H, Glucose 125 H, Calcium 8.9, Total Bilirubin 1.00, AST 39 H, ALT 33, Alkaline Phosphatase 104, Troponin T High Sens 176 H*, [place] [address] H, Total Protein 6.8, Albumin 4.0, Globulin 2.8, Albumin/Globulin Ratio 1.4 Imaging Radiology Impression Chest X-Ray 07/28/25 20:42 IMPRESSION: Mild cardiomegaly and mild pulmonary vascular congestion. Reading Location: [facility] Assessment & Plan Assessment/Plan (1) Acute exacerbation of chronic heart failure: PLAN: Plan The patient is an 89 y/o M w/ PMHx: HFrEF, Chronic macrocytic anemia, CKD stage III unclear subtype or GFR trending, CAD status post CABG, Hx CVA, PAF, Hypothyroidism, HTN, HLD, CML, Chronic BL LE Lymphedema, Hx complete heart block status post pacemaker placement, Hx myasthenia gravis, Former tobacco use, recent admission at [facility] with discharge this past Thursday with HF Exacerbation placed on supplemental oxygen 2L NC and diuretics who presents to [facility] ED on 07/28/2025 with significant diffuse edema as well as shortness of breath with noted hypoxia requiring supplemental oxygen 2 L nasal cannula from recent admission at [facility] and increased dyspnea, orthopnea despite administration Lasix x 2 doses at facility prompting transition to ED for evaluation. #1. Acute Decompensated HFpEF with Chronic Hypoxia (recent oxygen supplementation at recent OSH admission) with elevated cardiac enzyme of unclear significance with questionable possibility of recent NSTEMI at alternate facility but uncertain: Will admit to PCU, maintain on cardiac telemetry, will obtain cardiac enzyme series, obtain serial EKGs, continue IV lasix diuresis, monitor I/Os, maintain on intake restriction, continue medical therapy, obtain TSH and magnesium level. Most recent ECHO noted in the [employer] system 05/15/2023 with EF 55 to 60%, trivial MVI, mild aortic stenosis thus intention to request a repeat however patient did have significant recent workup at [facility] thus records requested but if they are not obtained in a timely fashion may require repeat echocardiogram. Suspect likely enzymes elevated at outside facility and it is unclear if these are trending down further from what they were, will await records. Patient was placed on a LifeVest at [facility] at discharge thus suspect the EF was notably reduced however patient and family note that there has been a significant issue with LifeVest and has not been working well thus we will request nursing staff to contact company in a.m. for evaluation. Will place snug citlalli wraps with extremity elevation. PT/OT/case management consulted for discharge planning. #2. CAD: Status post CABG, will continue patient home Xarelto, clarifying if also on antiplatelet, continue statin, not on any beta-pritesh therapy or CITLALLI inhibitor/ARB with no specific allergies listed, attempting to clarify. #3. Chart reported history of myasthenia gravis: Certainly complicates presentation, therapies consulted, will attempt to avoid exacerbating medications which potentially is the reason why patient is not on any beta-pritesh therapy although he is noted to be on a statin, maintain on fall precautions. #4. CML: Previously noted to be on chemotherapy, per record following with [facility] oncology Dr. Dozier, unclear exact ongoing interventions, encourage continued follow-up and evaluation with oncology, mag and Phos levels requested. #5. History of CVA: Will continue patient home Xarelto, statin therapy, clarify hypertensive regimen is none listed, no diabetic history. #6. History of complete heart block: Status post pacemaker placement, encourage continued outpatient follow-up and evaluation/interrogation as previously arranged. #7. Chronic macrocytic anemia: Admission hemoglobin 9.6, MCV 108, baseline hemoglobin appears primarily 8-9, stable, continue to trend. #8. Chronic Kidney Disease Stage III, unclear subtype per GFR trending: Admission BUN/Cr 46/1.31, GFR 52, baseline renal function more recently noted primarily 1.2-1.4 however in 2022 of note had been 0.8-0.9 primarily, appears to have progressed, repeat BMP in AM. #9. PAF: Will continue patient home Xarelto regimen, per most recent list does not appear to be on rate or rhythm agent but clarified to be certain. #10. Hypertension: Noted history, per current list only on oral Lasix/metolazone, will maintain on metolazone and transition to IV Lasix given presentation as noted, as needed IV hydralazine additionally. #11. Hyperlipidemia: Continue home statin regimen. AM FLP. #12. Hypothyroidism: Will continue patient home levothyroxine regimen, TSH requested. #13. Former tobacco use: Encourage continued tobacco cessation. #14. Chronic bilateral lower extremity lymphedema: Complicates presentation, continue evaluation and treatment as noted, standing citlalli wraps with elevation. #15. DVT prophylaxis: Will continue patient home Xarelto regimen. #16. CODE status: Patient JUDY is his son who is present and living will is currently in place. Discussed CODE status at length including difference between FULL code, DNR-CCA and DNR-CC status. Following discussions about the differences in these status, requested DNR CCA, clarified and also no intubation with examples reviewed. Advanced Care Planning Face to Face Time: 16 minutes. Charges/Coding Visit Charges Inpatient E&M: 80919 Init Hosp L3 Procedures Hospitalists Procedures: 05994 Advncd Care Plan 30 Min
--- OUTSIDE RECORDS SUMMARY | 2025-07-28 23:06 | XMS RPT_ITS | CCD ---
Author Organization [facility] ion Partnership [facility] Care Team Providers Care Backwinder Name Role Phone Laron Arreola MD Unavailable [...] Randa Unavailable Sanket Rob DO Unavailable Tia [facility], Ten Unavailable Tirmonia DO, Israel [place] Primary Care Provide r Laron Arreola Unavailable Israel Minor MD Unavailable Eveline Dean RN Unavailable Sindel DO, Randa Unavailable Sanket Rob DO Unavailable Ruby Duff RN Unavailable Ginna Em RN Unavailable [phone] [facility] Unavail able SINDEL, RANDA Referring Unavailable TIRMONIA, [facility] Unavail able MARLENE DOMÍNGUEZER Attending Unavailable TIRMONIA, [facility] Unavail able PRETKarey JEANETH Referring Unavailable MARÍA CHANG Admitting Unavaila LARON Garcia Consulting Unavailable ARYANLURI, ALLIE Attending Unavailable TIRMONIA, [facility] Unavail able SINDEL, RANDA Referring Unavailable TIRMONIA, [facility] Unavail able VALLURI, ALLIE Referring Unavailable TIRMONIA, [facility] Unavail able STEPHEN DOTY Referring Unavailable ROSA GONZALEZ Attending Unavailable TIRMONIA, [facility] Unavail able LARON FORTUNE Referring Unavailable TIRMONIA, [facility] Unavail able SINDEL, RANDA Referring Unavailable TIRMONIA, [facility] Unavail able SINDEL, RANDA Referring Unavailable TIRMONIA, [facility] Unavail able SINDEL, RANDA Referring Unavailable TIRMONIA, [facility] Unavail able LAUIR COOK Attending Unavailable SINDEL, RANDA Referring Unavailable SINDEL, RANDA Referring Unavailable TIRMONIA, [facility] Unavail able SINDEL, RANDA Referring Unavailable TIRMONIA, [facility] Unavail able TIRMONIA, [facility] Unavail able SKYE MAS Referring Unavailable TIRMONIA, [facility] Unavail able SINDEL, RANDA Referring Unavailable TIRMONIA, [facility] Unavail able SINDEL, RANDA Referring Unavailable TIRMONIA, [facility] Unavail able SINDEL, RANDA Referring Unavailable CARRIE, MANJEET Admitting Unavailable LAUREN BUTLERLL Attending Unavailable TIRMONIA, [facility] Unavail able TIRMONIA, [facility] Care Unavail able JESUS MANUEL WHITE MD Attending Unavailable JESUS MANUEL WHITE MD Admitting Unavailable TIRMONIA, [facility] Unavail able SINDEL, RANDA Referring Unavailable TIRMONIA, [facility] Unavail able SINDEL, RANDA Referring Unavailable TIRMONIA, [facility] Unavail able TIRMONIA, [facility] Unavail able SINDEL, RANDA Referring Unavailable TIRMONIA, [facility] Unavail able SINDEL, RANDA Referring Unavailable TIRMONIA, [facility] Unavail able SINDEL, RANDA Referring Unavailable TIRMONIA, [facility] Unavail able SINDEL, RANDA Attending Unavailable TIRMONIA, [facility] Unavail able SINDEL, RANDA Referring Unavailable TIRMONIA, [facility] Unavail able SINDEL, RANDA Referring Unavailable TIRMONIA, [facility] Unavail able SINDEL, RANDA Referring Unavailable TIRMONIA, [facility] Unavail able SINDEL, RANDA Referring Unavailable TIRMONIA, [facility] Unavail able SINDEL, RANDA Attending Unavailable TIRMONIA, [facility] Unavail able SINDEL, RANDA Referring Unavailable TIRMONIA, [facility] Unavail able SINDEL, RANDA Attending Unavailable TIRMONIA, [facility] Unavail able SINDEL, RANDA Referring Unavailable SINDEL, RANDA Attending Unavailable TIRMONIA, [facility] Unavail able SINDEL, RANDA Referring Unavailable TIRMONIA, [facility] Unavail able SINDEL, RANDA Referring Unavailable TIRMONIA, [facility] Unavail able ÁNGEL, TARA A Attending Unavailable ÁNGEL, TARA A Referring Unavailable TIRMONIA, [facility] Unavail able SINDEL, RANDA Attending Unavailable TIRMONIA, [facility] Unavail able SINDEL, RANDA Referring Unavailable TIRMONIA, [facility] Unavail able SINDEL, RANDA Referring Unavailable TIRMONIA, [facility] Unavail able SINDEL, RANDA Referring Unavailable TIRMONIA, [facility] Unavail able SINDEL, RANDA Referring Unavailable TIRMONIA, [facility] Unavail able SINDEL, RANDA Referring Unavailable TIRMONIA, [facility] Unavail able SINDEL, RANDA Referring Unavailable TIRMONIA, [facility] Unavail able SINDEL, RANDA Referring Unavailable TIRMONIA, [facility] Unavail able SINDEL, RANDA Referring Unavailable TIRMONIA, [facility] Unavail able SINDEL, RANDA Referring Unavailable TIRMONIA, [facility] Unavail able SINDEL, RANDA Referring Unavailable SINDEL, RANDA Attending Unavailable TIRMONIA, [facility] Unavail able SKYE MAS Attending Unavailable Dr. Ned Dinh Attending Provider Dr. Homer Khan Attending Provider Dr. Pedro Diaz Emergency Provider Hamzah Pruitt Primary Care Provider Dr. Mary [...] Ruby Unavailable Manav JIMÉNEZ, Ginna Noel Unavailable [phone] Sheila RN, Ileana Unavailable Unavailable Ronaldo Pleitze MD Primary Care Provider [phone] Dr. Pedro Diaz Referring Provider [phone] Dr. Cristobal Villafuerte Referring Provider Rnoaldo Pleitez MD Primary Care Provider Tiffanie PRODUCT DEVELOPMENT MANAGER.TELEPHONE ORDER SUPERVISOR, Arabella M Unavailable Sanket Rob DO Unavailable Sanket Rob DO Unavailable [phone] Dr. Ronaldo Pleitez MD Primary Care Provider Lilliana CAMP, Dr. Gould Emergency Provider Unavailab ceh Tijerina MD, Dr. Gould Attending Provider Unavailab Raul CAMP, Dr. Gould Referring Provider Unavailab che Dinh MD, Dr. Marino Attending Provider Sherif CAMP, Dr. Oquendo Emergency Provider [phone] Sherif CAMP, Dr. Oquendo Emergency Provider Crescencio CAMP, Dr. Hernandez Admit Provider Crescencio CAMP, Dr. Hernandez Attending Provider Crescencio CAMP, Dr. Hernandez Other Provider Amaury CAMP, Dr. Araya Attending Provider Amaury CAMP, Dr. Araya Other Provider Mio PRODUCT DEVELOPMENT MANAGER.TELEPHONE ORDER SUPERVISOR, Iram Carlson Unavailable Masci DO, Baljinder A [...] Unavailable MASCI, BALJINDER A Referring Unavailable PLEITEZ, [facility] Primary Care Unavailable MASCI, BALJINDER A Referring Unavailable PLEITEZ, [facility] Primary Care Unavailable MASCI, BALJINDER A Referring Unavailable PLEITEZ, [facility] Primary Care Unavailable MASCI, BALJINDER A Referring Unavailable PLEITEZ, [facility] Primary Care Unavailable MASCI, BALJINDER A Referring Unavailable PLEITEZ, [facility] Primary Care Unavailable MASCI, BALJINDER A Referring Unavailable PLEITEZ, [facility] Primary Care Unavailable MASCI, BALJINDER A Referring Unavailable PLEITEZ, [facility] Primary Care Unavailable MASCI, BALJINDER A Referring Unavailable PLEITEZ, [facility] Primary Care Unavailable PLEITEZ, [facility] Primary Care Unavailable MASCI, BALJINDER A Referring Unavailable MASCI, BALJINDER A Attending Unavailable MASCI, BALJINDER A Referring Unavailable PLEITEZ, [facility] Primary Care Unavailable MASCI, BALJINDER A Referring Unavailable PLEITEZ, [facility] Primary Care Unavailable MASCI, BALJINDER A Referring Unavailable PLEITEZ, [facility] Primary Care Unavailable PLEITEZ, [facility] Referring Unavailable PLEITEZ, [facility] Primary Care Unavailable MASCI, BALJINDER A Referring Unavailable PLEITEZ, [facility] Primary Care Unavailable MASCI, BALJINDER A Referring Unavailable PLEITEZ, [facility] Primary Care Unavailable DAVID CERVANTES Attending Unavailable MASCI, BALJINDER A Referring Unavailable [facility]LE[facility]Z, [facility] Primary Care Unavailable MASCI, BALJINDER A Referring Unavailable PLEITEZ, [facility] Primary Care Unavailable TIFFANIE, NAZ M Attending Unavailable [facility]LE[facility]Z, [facility] Primary Care Unavailable MASCI, BALJINDER A Referring Unavailable PLEITEZ, [facility] Primary Care Unavailable LAURI COOK Attending Unavailable MASCI, BALJINDER A Referring Unavailable [facility]LE[facility]Z, [facility] Primary Care Unavailable MASCI, BALJINDER A Referring Unavailable [facility]LE[facility]Z, [facility] Primary Care Unavailable MASCI, BALJINDER A Referring Unavailable PLE[facility]Z, [facility] Primary Care Unavailable MASCI, BALJINDER A Referring Unavailable PLE[facility]Z, [facility] Primary Care Unavailable MASCI, BALJINDER A Referring Unavailable PLEITEZ, [facility] Primary Care Unavailable TIFFANIE, NAZ M Attending Unavailable [facility], [facility] Primary Care Unavailable MASCI, BALJINDER A Referring Unavailable [facility]LE[facility]Z, [facility] Primary Care Unavailable MASCI, BALJINDER A Referring Unavailable PLE[facility]Z, [facility] Primary Care Unavailable MASCI, BALJINDER A [...] Drug Allergy 10-09-201 2 Other: See Comments [facility] (20 sources) Simvastatin; Translations: [SIMVASTATIN] Drug Allergy 2 Other: See Comments [facility] Work Phone: Medications Current Medications Medication Drug [...] UNIT) TABS 1 tablet once daily CHOLECALCIFEROL [id number] Patricia Paul take 1 capsule by mo uth once daily cholecalciferol, vitamin D3, 10 mcg (400 unit) cap Take 1,000 Units by mouth once daily. 0 Active take 1 capsule by mo uth once daily cholecalciferol, vitamin D3, 10 mcg (400 unit) cap Take 400 Units by mouth once daily. 0 Active Comment on above: Take 400 Units by [facility] once daily. Take 1,000 Units by mouth once daily. docusate sodium 50 mg / sennosides, care home 8.6 mg oral tablet (9 sources) Start: [...] daily. 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 once daily. Completed/Discontinued Medications Medication Drug [...] LIQD daily as directed PEDIATRIC MULTIPLE VITAMINS [id number] Ephraim Morgan LPN aspirin 81 mg delayed [...] MG TABS 1 tablet daily ATORVASTATIN CALCIUM [id number] Ephraim Morgan LPN Comment on above: Take [...] once daily as directed NAPROXEN SOD-DIPHENHYDRAMI NE [id number] Patricia Paul ferrous fumarate 325 mg oral [...] o nce daily. Take [address] [facility] daily. folic acid 1 mg / omega-3 acid ethyl esters (care home) 500 mg / phytosterols 200 mg / pyridoxine hydrochloride 12.5 mg / vitamin b 12 0.5 mg oral capsule (1 source) Vitamin B12 Start: 09-27-20 ANIMI-3 1 MG CAPS 1 capsule daily [id number] 3-PHYTOSTER [id number] Ephraim Eddie TANN folic acid 1 mg / vitamin b12 0.5 mg oral tablet (1 source) Vitamin B12 End: 12-04-19 Vitamin [id number] Acid 0.5-1 mg tab Vitamin B12 0 [...] Comment on above: Take 1 capsule by [facility] three times daily for 90 days. levoFLOXacin [...] TABS 1 tablet once daily LEVOTHYROXINE SODIUM [id number] Patricia Paul Comment on above: TAKE 1 [...] TABS 1 tablet once daily MULTIPLE VITAMINS-MINERALS 15196321355 Patricia Paul MULTIVITAMIN TABLET (20 sources) Start: [...] MG CAPS daily as directed NAPROXEN SODIUM [id number] Ephraim Morgan LPN OMEGA-3 FATTY ACIDS (1 source) Start: 020 FISH OIL 1000 MG CAPS 1 capsule once daily OMEGA-3 FATTY ACIDS [id number] Patricia Paul ondansetron 8 mg oral tablet (20 sources) Serotonin-3 Receptor Antagonist Start: 023 End: 023 take 1 tablet by mouth every eight hours as needed Ondansetron Hcl 8 mg tablet Discontinued 8 mg PO Q8H as needed April 09, 2023 12:00am May 14, 2023 3:28pm Comment on above: Take 1 tablet by [facility] every 8 hours as needed. polyethylene glycol 3350 15831 mg powder for oral solution (20 sources) [...] Start: 06-26-2025 take 2 tablets by mo [facility] twice daily at mealtime Potassium Chloride [...] Coronary arteriosclerosis; Translations: [Atherosclerotic heart disease of [place] coronary artery without angina pectoris] Onset: 2 [...] sources) Long-term current use of anticoagulant; Translations: [MCFP (current) use of anticoagulants] Onset: 01-05-2023 Resolved: 01-05-2023 08-14-2021 Episodic Other aftercare (20 sources) Surgical follow-up; Translations: [Follow-up examination following surgery] Onset: 10-31-2003 Resolved: 01-02-2015 01-02-2015 Episodic Other aftercare (2 sources) 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 (current) use of anticoagulants; Translations: [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 (current) use of anticoagulants] Onset: 01-05-2023 Episodic [...] width (RBC) [Ratio] 25.1 % High 11.5-15.0 [facility] Comment on above: Order Comment: Speci men Type: BLOOD SPECIMENOrdering Facility: [facility] Address: [address] [place] [address] Performed By: #### 5 8410-2 ####[facility] LABORATORYCLIA [id number] [address] [place] Hematocrit (Bld) [Volume fraction] 29.7 % Low 39.0-51.0 [facility] Comment on above: Order Comment: Speci men Type: BLOOD SPECIMENOrdering Facility: [facility] Address: [address] [place] [address] Performed By: #### 5 8410-2 ####[facility] LABORATORYCLIA [id number] [address] [place] Hemoglobin (Bld) [Mass/Vol] 9.7 g/dL Low 13.0-17.0 [facility] Comment on above: Order Comment: Speci men Type: BLOOD SPECIMENOrdering Facility: [facility] Address: [address] [place] [address] Performed By: #### 5 8410-2 ####[facility] LABORATORYCLIA [id number] [address] [place] MCH (RBC) [Entitic mass] 35.1 pg High 26.0-34.0 [facility] Comment on above: Order Comment: Speci men Type: BLOOD SPECIMENOrdering Facility: [facility] Address: [address] [place] [address] Performed By: #### 5 8410-2 ####[facility] LABORATORYCLIA [id number] [address] [place] MCHC (RBC) [Mass/Vol] 32.7 g/dL Normal 30.5-36.0 [facility] Comment on above: Order Comment: Speci men Type: BLOOD SPECIMENOrdering Facility: [facility] Address: [address] [place] [address] Performed By: #### 5 8410-2 ####[facility] LABORATORYCLIA [id number] [place] [address] [place] MCV (RBC) [Entitic vol] 107.6 fL High 80.0-100.0 [facility] Comment on above: Order Comment: Speci men Type: BLOOD SPECIMENOrdering Facility: [facility] Address: [address] [place] [address] Performed By: #### 5 8410-2 ####[facility] LABORATORYCLIA [id number] [place] [address] [place] Nucleated RBC (Bld) [#/Vol] 0.05 10*3/uL High <0.01 [facility] Comment on above: Order Comment: Speci men Type: BLOOD SPECIMENOrdering Facility: [facility] Address: [address] [place] [address] Performed By: #### 5 8410-2 ####[facility] LABORATORYCLIA [id number] [address] [place] Platelet mean volume (Bld) [Entitic vol] 10.4 fL Normal 9.0-12.7 [facility] Comment on above: Order Comment: Speci men Type: BLOOD SPECIMENOrdering Facility: [facility] Address: [address] [place] [address] Performed By: #### 5 8410-2 ####[facility] LABORATORYCLIA [id number] [place] [address] [place] Platelets (Bld) [#/Vol] 184 10*3/uL Normal 150-400 [facility] Comment on above: Order Comment: Speci men Type: BLOOD SPECIMENOrdering Facility: [facility] Address: [address] [place] [address] Performed By: #### 5 8410-2 ####[facility] LABORATORYCLIA [id number] [place] [address] [place] RBC (Bld) [#/Vol] 2.76 10*6/uL Low 4.20-6.00 [facility] Comment on above: Order Comment: Speci men Type: BLOOD SPECIMENOrdering Facility: [facility] Address: [address] [place] [address] Performed By: #### 5 8410-2 ####[facility] LABORATORYCLIA [id number] [place] [id number] [facility] WBC (Bld) [#/Vol] 7.82 10*3/uL Normal 3.70-11.00 [facility] Comment on above: Order Comment: Speci men Type: BLOOD SPECIMENOrdering Facility: [facility] Address: [address] [place] [address] Performed By: #### 5 8410-2 ####[facility] LABORATORYCLIA [id number] [place] [id number] [facility] CNDSon 07-25-2025 CNDS HNO ID: [id number] Author: CARLEY KEYES MD Service: General Internal Medicine Author Type: Physician Type: Discharge Summary Filed: 07/25/2025 15:05 Note Text: DISCHARGE SUMMARY PATIENT NAME: Srini Luis ADMISSION DATE: 07/13/2025 Date or Evaluation: 07/25/2025 [...] Team: Attending Provider: Carley Keyes MD Physician Auction Block Clerk: Mingo Murry PA-C Consulting: Sergio Johnson MD [...] 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 He [...] Patient wanted to follow-up with cardiology at [place], referral provided by transplant case manager Patient was on IV Lasix 40 mg [...] PATIENT CONDITION AT DISCHARGE: Stable DISCHARGE DISPOSITION: [facility] Facility Physical Exam: General: Not in acute [...] Take 1 tabl (more content not included)... [facility] CONSULT PROGon 07-25-2025 CONSULT PROG HNO ID: [id number] Author: JAXSON ARGUELLES APRN.TELEPHONE ORDER SUPERVISOR Service: Cardiovascular Medicine Author Type: Nurse Practitioner [...] 07/14/2025 HDL Cholesterol 49 07/14/2025 LDL Chol, [place] 28 07/14/2025 Cholesterol, Total 88 07/14/2025 Lab [...] daily and [place] (more content not included)... [facility] THERAPY NTon 07-25-2025 THERAPY NT HNO ID: [id number] Author: CHASTITY HEMPHILL COTA/L Service: Occupational Therapy Author Type: Sales Operations Manager Type: Therapy (PT/OT/Speech/Resp) Filed: 07/25/2025 12:03 Note Text: -- Attestation signed by Nayely Heck OT/L at 07/25/2025 3:30 PM I reviewed and agree with the documentation corresponding to this therapy visit. SIGNATURE: TUSHAR Duckworth DATE: July 25, 2025 TIME: 3:30 PM -- Occupational Therapy Treatment Summary SERVICE DATE: 07/25/2025 SERVICE TIME: 1107 to 1140 ROOM: [id number] OT 6 Clicks Score: 15 DISCHARGE RECOMMENDATIONS [...] [place] CURRENT HOSPITAL COURSE Pt presents to [facility] with complaints of extremity edema and after [...] chair. 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 Baseline Cognition: Oriented [...] mobility-other, Muscle Weakness (generalized) TREATMENT INTERVENTIONS Self Senior Living Management (80070), Therapeutic Activity (84344) Timed Code Treatment (minutes): 30 Skilled Treatment Time (minutes): 30 TRAINING AND EDUCATION PROVIDED Activity Adaptation/Compensatory Strategies, Assistive Device Use, Benefits of In-Hospital Mobility, Command Following, Cognitive Skills, Discharge Planning, Edema Management, Energy Conservation, Expected Functional Level, Functional Mobility Involving ADLs, Grooming Tasks, Insight into Deficits, Lower Extremity Dressing, Memory/Attention, Orientation, Role of Occupational Therapy, Safety/Judgment, Sitting Balance to Improve [place] with ADLs/Self-Care, Standing Balance to Improve [place] with ADLs/Self-Care, Transfer - Sit to Stand, Upper Extremity Bathing, Upper Extremity Dressing, Lower Extremity Bathing THERAPEUTIC SKILLS USED Activity Dosing, Assessment of Tolerance Including Vitals (more content not included)... Normal [facility] Basic metabolic 2000 panelon 07-24-2025 Anion gap [Moles/Vol] 7 mmol/L Normal 5-16 [facility] Comment on above: Order Comment: Speci men Type: BLOOD SPECIMENOrdering Facility: [facility] Address: [address] [place] [address] Performed By: #### 2 4321-2 ####[facility] LABORATORYCLIA [id number] [place] [address] [place] Calcium [Mass/Vol] 8.6 mg/dL Normal 8.5-10.5 [facility] Comment on above: Order Comment: Speci men Type: BLOOD SPECIMENOrdering Facility: [facility] Address: [address] [place] [address] Performed By: #### 2 4321-2 ####[facility] LABORATORYCLIA [id number] [place] [id number] [place] Chloride [Moles/Vol] 95 mmol/L Low 98-107 [facility] Comment on above: Order Comment: Speci men Type: BLOOD SPECIMENOrdering Facility: [facility] Address: [address] [place] [address] Performed By: #### 2 4321-2 ####[facility] LABORATORYCLIA [id number] [place] [address] [place] CO2 [Moles/Vol] 37 mmol/L High 21-32 [facility] Comment on above: Order Comment: Speci men Type: BLOOD SPECIMENOrdering Facility: [facility] Address: [address] [place] [address] Performed By: #### 2 4321-2 ####[facility] LABORATORYCLIA [id number] [place] [address] [place] Creatinine [Mass/Vol] 1.16 mg/dL Normal 0.50-1.40 [facility] Comment on above: Order Comment: Speci men Type: BLOOD SPECIMENOrdering Facility: [facility] Address: [address] [place] [address] Result Comment: Kierra ents receiving either N-Acetylcysteine (NAC) or Metamizole prior to venipuncture, may have falsely depressed results. Performed By: #### 2 4321-2 ####[facility] LABORATORYCLIA [id number] [place] [address] [place] eGFRcr SerPlBld CKD-EPI 2020 60 mL/min/1.73m??? Normal >=60 [facility] Comment on above: Order Comment: Speci men Type: BLOOD SPECIMENOrdering Facility: [facility] Address: [address] [place] [address] Result Comment: Concepción mated Glomerular Filtration Rate [...] actual GFR. Performed By: #### 2 4321-2 ####[facility] LABORATORYCLIA [id number] [place] [id number] [place] Glucose [Mass/Vol] 150 mg/dL High 70-100 [facility] Comment on above: Order Comment: Elfego gilbert Type: BLOOD SPECIMENOrdering Facility: [facility] Address: [address] [place] [address] Result Comment: The [place] Diabetes Association (ADA) provides guidance for cutoff [...] Standards of Medical Care in Diabetes 2016, [place] Diabetes Association. Diabetes Care. 2016.39(Suppl 1). Results may be falsely elevated after the administration of Sulfapyridine. Results may be falsely depressed after the administration of Sulfasalazine. Performed By: #### 2 4321-2 ####[facility] LABORATORYCLIA [id number] [place] [address] [place] Potassium [Moles/Vol] 4.5 mmol/L Normal 3.5-5.1 [facility] Comment on above: Order Comment: Elfego gilbert Type: BLOOD SPECIMENOrdering Facility: [facility] Address: [address] [id number] Performed By: #### 2 4321-2 ####[facility] LABORATORYCLIA [id number] [place] [id number] [place] Sodium [Moles/Vol] 139 mmol/L Normal 136-145 [facility] Comment on above: Order Comment: Speci men Type: BLOOD SPECIMENOrdering Facility: [facility] Address: [address] [place] [address] Performed By: #### 2 4321-2 ####[facility] LABORATORYCLIA [id number] [place] [id number] [place] Urea nitrogen [Mass/Vol] 46 mg/dL High 7-26 [facility] Comment on above: Order Comment: Speci men Type: BLOOD SPECIMENOrdering Facility: [facility] Address: [address] [place] [address] Performed By: #### 2 4321-2 ####[facility] LABORATORYCLIA [id number] [place] [id number] [place] CBC panel Auto (Bld)on 07-24 Erythrocyte distribution width (RBC) [Ratio] 24.7 % High 11.5-15.0 [facility] Comment on above: Order Comment: Speci men Type: BLOOD SPECIMENOrdering Facility: [facility] Address: [address] [place] [address] Performed By: #### 5 8410-2 ####[facility] LABORATORYCLIA [id number] [place] [address] [place] Hematocrit (Bld) [Volume fraction] 31.0 % Low 39.0-51.0 [facility] Comment on above: Order Comment: Speci men Type: BLOOD SPECIMENOrdering Facility: [facility] Address: [address] [place] [address] Performed By: #### 5 8410-2 ####[facility] LABORATORYCLIA [id number] [address] [place] Hemoglobin (Bld) [Mass/Vol] 10.2 g/dL Low 13.0-17.0 [facility] Comment on above: Order Comment: Speci men Type: BLOOD SPECIMENOrdering Facility: [facility] Address: [address] [place] [address] Performed By: #### 5 8410-2 ####[facility] LABORATORYCLIA [id number] [address] [place] MCH (RBC) [Entitic mass] 35.4 pg High 26.0-34.0 [facility] Comment on above: Order Comment: Speci men Type: BLOOD SPECIMENOrdering Facility: [facility] Address: [address] [place] [address] Performed By: #### 5 8410-2 ####[facility] LABORATORYCLIA [id number] [place] [address] [place] MCHC (RBC) [Mass/Vol] 32.9 g/dL Normal 30.5-36.0 [facility] Comment on above: Order Comment: Speci men Type: BLOOD SPECIMENOrdering Facility: [facility] Address: [address] [place] [address] Performed By: #### 5 8410-2 ####[facility] LABORATORYCLIA [id number] [address] [place] MCV (RBC) [Entitic vol] 107.6 fL High 80.0-100.0 [facility] Comment on above: Order Comment: Speci men Type: BLOOD SPECIMENOrdering Facility: [facility] Address: [address] [place] [address] Performed By: #### 5 8410-2 ####[facility] LABORATORYCLIA [id number] [address] [place] Nucleated RBC (Bld) [#/Vol] 0.05 10*3/uL High <0.01 [facility] Comment on above: Order Comment: Speci men Type: BLOOD SPECIMENOrdering Facility: [facility] Address: [address] [place] [address] Performed By: #### 5 8410-2 ####[facility] LABORATORYCLIA [id number] [address] [place] Platelet mean volume (Bld) [Entitic vol] 11.0 fL Normal 9.0-12.7 [facility] Comment on above: Order Comment: Speci men Type: BLOOD SPECIMENOrdering Facility: [facility] Address: [address] [place] [address] Performed By: #### 5 8410-2 ####[facility] LABORATORYCLIA [id number] [place] [id number] [facility] Platelets (Bld) [#/Vol] 208 10*3/uL Normal 150-400 [facility] Comment on above: Order Comment: Speci men Type: BLOOD SPECIMENOrdering Facility: [facility] Address: [address] [place] [address] Performed By: #### 5 8410-2 ####[facility] LABORATORYCLIA [id number] [place] [id number] [place] RBC (Bld) [#/Vol] 2.88 10*6/uL Low 4.20-6.00 [facility] Comment on above: Order Comment: Speci men Type: BLOOD SPECIMENOrdering Facility: [facility] Address: [address] [place] [address] Performed By: #### 5 8410-2 ####[facility] LABORATORYCLIA [id number] [place] [address] [facility] [place] WBC (Bld) [#/Vol] 6.69 10*3/uL Normal 3.70-11.00 [facility] Comment on above: Order Comment: Speci men Type: BLOOD SPECIMENOrdering Facility: [facility] Address: [address] [place] [address] Performed By: #### 5 8410-2 ####[facility] LABORATORYCLIA [id number] [place] [id number] [facility] CONSULT PROGon 07-24-2025 CONSULT PROG HNO ID: [id number] Author: JAXSON ARGUELLES APRN.TELEPHONE ORDER SUPERVISOR Service: Cardiovascular Medicine Author Type: Nurse Practitioner [...] parameters. LifeVes (more content not included)... Normal [facility] CBC panel Auto (Bld)on 07-23 Erythrocyte distribution width (RBC) [Ratio] 24.7 % High 11.5-15.0 [facility] Comment on above: Order Comment: Elfego gilbert Type: BLOOD SPECIMENOrdering Facility: [facility] Address: [address] [place] [address] Performed By: #### 5 8410-2 ####[facility] LABORATORYCLIA [id number] [place] [address] [place] Hematocrit (Bld) [Volume fraction] 29.6 % Low 39.0-51.0 [facility] Comment on above: Order Comment: Elfego gilbert Type: BLOOD SPECIMENOrdering Facility: [facility] Address: [address] [place] [address] Performed By: #### 5 8410-2 ####[facility] LABORATORYCLIA [id number] [address] [place] Hemoglobin (Bld) [Mass/Vol] 9.7 g/dL Low 13.0-17.0 [facility] Comment on above: Order Comment: Speci men Type: BLOOD SPECIMENOrdering Facility: [facility] Address: [address] [place] [address] Performed By: #### 5 8410-2 ####[facility] LABORATORYCLIA [id number] [address] [place] MCH (RBC) [Entitic mass] 35.4 pg High 26.0-34.0 [facility] Comment on above: Order Comment: Speci men Type: BLOOD SPECIMENOrdering Facility: [facility] Address: [address] [place] [address] Performed By: #### 5 8410-2 ####[facility] LABORATORYCLIA [id number] [address] OF [facility] MCHC (RBC) [Mass/Vol] 32.8 g/dL Normal 30.5-36.0 [facility] Comment on above: Order Comment: Speci men Type: BLOOD SPECIMENOrdering Facility: [facility] Address: [address] [place] [address] Performed By: #### 5 8410-2 ####[facility] LABORATORYCLIA [id number] [address] [place] MCV (RBC) [Entitic vol] 108.0 fL High 80.0-100.0 [facility] Comment on above: Order Comment: Speci men Type: BLOOD SPECIMENOrdering Facility: [facility] Address: [address] [place] [address] Performed By: #### 5 8410-2 ####[facility] LABORATORYCLIA [id number] [address] [place] Nucleated RBC (Bld) [#/Vol] 0.04 10*3/uL High <0.01 [facility] Comment on above: Order Comment: Speci men Type: BLOOD SPECIMENOrdering Facility: [facility] Address: [address] [place] [address] Performed By: #### 5 8410-2 ####[facility] LABORATORYCLIA [id number] [place] [id number] [place] Platelet mean volume (Bld) [Entitic vol] 11.0 fL Normal 9.0-12.7 [facility] Comment on above: Order Comment: Speci men Type: BLOOD SPECIMENOrdering Facility: [facility] Address: [address] [place] [address] Performed By: #### 5 8410-2 ####[facility] LABORATORYCLIA [id number] [place] [id number] [place] Platelets (Bld) [#/Vol] 186 10*3/uL Normal 150-400 [facility] Comment on above: Order Comment: Speci men Type: BLOOD SPECIMENOrdering Facility: [facility] Address: [address] [place] [address] Performed By: #### 5 8410-2 ####[facility] LABORATORYCLIA [id number] [place] [address] [place] RBC (Bld) [#/Vol] 2.74 10*6/uL Low 4.20-6.00 [facility] Comment on above: Order Comment: Speci men Type: BLOOD SPECIMENOrdering Facility: [facility] Address: [address] [place] [address] Performed By: #### 5 8410-2 ####[facility] LABORATORYCLIA [id number] [place] [address] [place] WBC (Bld) [#/Vol] 5.40 10*3/uL Normal 3.70-11.00 [facility] Comment on above: Order Comment: Speci men Type: BLOOD SPECIMENOrdering Facility: [facility] Address: [address] [place] [address] Performed By: #### 5 8410-2 ####[facility] LABORATORYCLIA [id number] [place] [id number] [place] Basic metabolic 2000 panelon 07-22-2025 Anion gap [Moles/Vol] 6 mmol/L Normal 5-16 [facility] Comment on above: Order Comment: Speci men Type: BLOOD SPECIMENOrdering Facility: [facility] Address: [address] [place] [address] Performed By: #### 2 4321-2 ####[facility] LABORATORYCLIA [id number] [place] [address] [place] Calcium [Mass/Vol] 8.4 mg/dL Low 8.5-10.5 [facility] Comment on above: Order Comment: Speci men Type: BLOOD SPECIMENOrdering Facility: [facility] Address: [address] [place] [address] Performed By: #### 2 4321-2 ####[facility] LABORATORYCLIA [id number] [place] [address] [place] Chloride [Moles/Vol] 96 mmol/L Low 98-107 [facility] Comment on above: Order Comment: Speci men Type: BLOOD SPECIMENOrdering Facility: [facility] Address: [address] [place] [address] Performed By: #### 2 4321-2 ####[facility] LABORATORYCLIA [id number] [place] [address] [place] CO2 [Moles/Vol] 37 mmol/L High 21-32 [facility] Comment on above: Order Comment: Speci men Type: BLOOD SPECIMENOrdering Facility: [facility] Address: [address] [place] [address] Performed By: #### 2 4321-2 ####[facility] LABORATORYCLIA [id number] [place] [id number] [place] Creatinine [Mass/Vol] 1.19 mg/dL Normal 0.50-1.40 [facility] Comment on above: Order Comment: Speci men Type: BLOOD SPECIMENOrdering Facility: [facility] Address: [address] [place] [address] Result Comment: Kierra ents receiving either N-Acetylcysteine (NAC) or Metamizole prior to venipuncture, may have falsely depressed results. Performed By: #### 2 4321-2 ####[facility] LABORATORYCLIA [id number] [place] [id number] [place] eGFRcr SerPlBld CKD-EPI 2020 58 mL/min/1.73m??? Low >=60 [facility] Comment on above: Order Comment: Elfego gilbert Type: BLOOD SPECIMENOrdering Facility: [facility] Address: [address] [place] [address] Result Comment: Concepción mated Glomerular Filtration Rate [...] actual GFR. Performed By: #### 2 4321-2 ####[facility] LABORATORYCLIA [id number] [place] [address] [place] Glucose [Mass/Vol] 102 mg/dL High 70-100 [facility] Comment on above: Order Comment: Elfego gilbert Type: BLOOD SPECIMENOrdering Facility: [facility] Address: [address] [place] [address] Result Comment: [place] Diabetes Association (ADA) provides guidance for cutoff [...] Standards of Medical Care in Diabetes 2016, [place] Diabetes Association. Diabetes Care. 2016.39(Suppl 1). Results may be falsely elevated after the administration of Sulfapyridine. Results may be falsely depressed after the administration of Sulfasalazine. Performed By: #### 2 4321-2 ####[facility] LABORATORYCLIA [id number] [place] [id number] [place] Potassium [Moles/Vol] 4.2 mmol/L Normal 3.5-5.1 [facility] Comment on above: Order Comment: Speci men Type: BLOOD SPECIMENOrdering Facility: [facility] Address: [address] [place] [address] Performed By: #### 2 4321-2 ####[facility] LABORATORYCLIA [id number] [place] [address] [facility] Sodium [Moles/Vol] 139 mmol/L Normal 136-145 [facility] Comment on above: Order Comment: Speci men Type: BLOOD SPECIMENOrdering Facility: [facility] Address: [address] [place] [address] Performed By: #### 2 4321-2 ####[facility] LABORATORYCLIA [id number] [address] STATES [facility] Urea nitrogen [Mass/Vol] 34 mg/dL High 7-26 [facility] Comment on above: Order Comment: Speci men Type: BLOOD SPECIMENOrdering Facility: [facility] Address: [address] [place] [address] Performed By: #### 2 4321-2 ####[facility] LABORATORYCLIA [id number] [address] CBC panel Auto (Bld)on 07-22 Erythrocyte distribution width (RBC) [Ratio] 24.3 % High 11.5-15.0 [facility] Comment on above: Order Comment: Speci men Type: BLOOD SPECIMENOrdering Facility: [facility] Address: [address] [place] [address] Performed By: #### 5 8410-2 ####[facility] LABORATORYCLIA [id number] [address] [place] Hematocrit (Bld) [Volume fraction] 31.2 % Low 39.0-51.0 [facility] Comment on above: Order Comment: Speci men Type: BLOOD SPECIMENOrdering Facility: [facility] Address: [address] [place] [address] Performed By: #### 5 8410-2 ####[facility] LABORATORYCLIA [id number] [place] [address] [place] Hemoglobin (Bld) [Mass/Vol] 10.1 g/dL Low 13.0-17.0 [facility] Comment on above: Order Comment: Speci men Type: BLOOD SPECIMENOrdering Facility: [facility] Address: [address] [place] [address] Performed By: #### 5 8410-2 ####[facility] LABORATORYCLIA [id number] [address] [place] MCH (RBC) [Entitic mass] 35.1 pg High 26.0-34.0 [facility] Comment on above: Order Comment: Speci men Type: BLOOD SPECIMENOrdering Facility: [facility] Address: [address] [place] [address] Performed By: #### 5 8410-2 ####[facility] LABORATORYCLIA [id number] [address] [place] MCHC (RBC) [Mass/Vol] 32.4 g/dL Normal 30.5-36.0 [facility] Comment on above: Order Comment: Speci men Type: BLOOD SPECIMENOrdering Facility: [facility] Address: [address] [place] [address] Performed By: #### 5 8410-2 ####[facility] LABORATORYCLIA [id number] [address] [place] MCV (RBC) [Entitic vol] 108.3 fL High 80.0-100.0 [facility] Comment on above: Order Comment: Speci men Type: BLOOD SPECIMENOrdering Facility: [facility] Address: [address] [place] [address] Performed By: #### 5 8410-2 ####[facility] LABORATORYCLIA [id number] [place] [id number] [place] Nucleated RBC (Bld) [#/Vol] 0.05 10*3/uL High <0.01 [facility] Comment on above: Order Comment: Speci men Type: BLOOD SPECIMENOrdering Facility: [facility] Address: [address] [place] [address] Performed By: #### 5 8410-2 ####[facility] LABORATORYCLIA [id number] [place] [address] [place] Platelet mean volume (Bld) [Entitic vol] 11.0 fL Normal 9.0-12.7 [facility] Comment on above: Order Comment: Speci men Type: BLOOD SPECIMENOrdering Facility: [facility] Address: [address] [place] [address] Performed By: #### 5 8410-2 ####[facility] LABORATORYCLIA [id number] [place] [address] [place] Platelets (Bld) [#/Vol] 204 10*3/uL Normal 150-400 [facility] Comment on above: Order Comment: Speci men Type: BLOOD SPECIMENOrdering Facility: [facility] Address: [address] [place] [address] Performed By: #### 5 8410-2 ####[facility] LABORATORYCLIA [id number] [place] [address] [place] RBC (Bld) [#/Vol] 2.88 10*6/uL Low 4.20-6.00 [facility] Comment on above: Order Comment: Speci men Type: BLOOD SPECIMENOrdering Facility: [facility] Address: [address] [place] [address] Performed By: #### 5 8410-2 ####[facility] LABORATORYCLIA [id number] [place] [id number] [place] WBC (Bld) [#/Vol] 7.43 10*3/uL Normal 3.70-11.00 [facility] Comment on above: Order Comment: Speci men Type: BLOOD SPECIMENOrdering Facility: [facility] Address: [address] [place] [id number] Performed By: #### 5 8410-2 ####[facility] LABORATORYCLIA [id number] [place] [address] [place] CONSULT PROGon 07-22-2025 CONSULT PROG HNO ID: [id number] Author: JOSE SHERMAN PA-C Service: Cardiovascular Medicine Author Type: Physician Auction Block Clerk Type: Consult Progress Note Filed: 07/23/2025 09:19 [...] 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 He [...] sitting up in the bedside chair in [facility] on room air with family at bedside. Neuro/psych: Alert. Oriented x 3. Pleasant. Cooperative. Fair historian, but seems to get confused in the midst of discussion. 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 RADIOLOGY DEPARTMENT: General X-ray: Exam(s) Completed: Chest X-Ray PERIPHERAL IV DATA: Not applicable SIGNED BY: Ephraim Marrero, RT(R) July 21, 2025 2:06 PM Normal [facility] Basic metabolic 2000 panelon 07-21-2025 Anion gap [Moles/Vol] 8 mmol/L Normal 5-16 [facility] Comment on above: Order Comment: Speci men Type: BLOOD SPECIMENOrdering Facility: [facility] Address: [address] [place] [address] Performed By: #### 2 4321-2, 85415-6 ####[facility] LABORATORYCLIA [id number] [place] [address] [place] Calcium [Mass/Vol] 8.7 mg/dL Normal 8.5-10.5 [facility] Comment on above: Order Comment: Speci men Type: BLOOD SPECIMENOrdering Facility: [facility] Address: [address] [place] [address] Performed By: #### 2 4321-2, 62533-7 ####[facility] LABORATORYCLIA [id number] [place] [id number] [place] Chloride [Moles/Vol] 98 mmol/L Normal 98-107 [facility] Comment on above: Order Comment: Speci men Type: BLOOD SPECIMENOrdering Facility: [facility] Address: [address] [place] [address] Performed By: #### 2 4321-2, 23404-8 ####[facility] LABORATORYCLIA [id number] [place] [address] [place] CO2 [Moles/Vol] 34 mmol/L High 21-32 [facility] Comment on above: Order Comment: Speci men Type: BLOOD SPECIMENOrdering Facility: [facility] Address: [address] [place] [address] Performed By: #### 2 4321-2, 25186-3 ####[facility] LABORATORYCLIA [id number] [address] [place] Creatinine [Mass/Vol] 1.16 mg/dL Normal 0.50-1.40 [facility] Comment on above: Order Comment: Speci men Type: BLOOD SPECIMENOrdering Facility: [facility] Address: [address] [place] [address] Result Comment: Kierra ents receiving either N-Acetylcysteine (NAC) or Metamizole prior to venipuncture, may have falsely depressed results. Performed By: #### 2 4321-2, 46803-3 ####[facility] LABORATORYCLIA [id number] [place] [address] [place] eGFRcr SerPlBld CKD-EPI 2020 60 mL/min/1.73m??? Normal >=60 [facility] Comment on above: Order Comment: Speci men Type: BLOOD SPECIMENOrdering Facility: [facility] Address: [address] [place] [address] Result Comment: Concepción mated Glomerular Filtration Rate [...] actual GFR. Performed By: #### 2 4321-2, 75521-3 ####[facility] LABORATORYCLIA [id number] [place] [id number] [place] Glucose [Mass/Vol] 101 mg/dL High 70-100 [facility] Comment on above: Order Comment: Elfego gilbert Type: BLOOD SPECIMENOrdering Facility: [facility] Address: [address] [place] [address] Result Comment: The [place] Diabetes Association (ADA) provides guidance for cutoff [...] Standards of Medical Care in Diabetes 2016, [place] Diabetes Association. Diabetes Care. 2016.39(Suppl 1). Results may be falsely elevated after the administration of Sulfapyridine. Results may be falsely depressed after the administration of Sulfasalazine. Performed By: #### 2 4321-2, 68527-1 ####[facility] LABORATORYCLIA [id number] [place] [address] [place] Potassium [Moles/Vol] 4.8 mmol/L Normal 3.5-5.1 [facility] Comment on above: Order Comment: Elfego gilbert Type: BLOOD SPECIMENOrdering Facility: [facility] Address: [address] [place] [address] Performed By: #### 2 4321-2, 01352-4 ####[facility] LABORATORYCLIA [id number] [place] [id number] [facility] Sodium [Moles/Vol] 140 mmol/L Normal 136-145 [facility] Comment on above: Order Comment: Speci men Type: BLOOD SPECIMENOrdering Facility: [facility] Address: [address] [place] [address] Performed By: #### 2 4321-2, 09051-7 ####[facility] LABORATORYCLIA [id number] [place] [address] [place] [facility] Urea nitrogen [Mass/Vol] 33 mg/dL High 7- [facility] Comment on above: Order Comment: Speci men Type: BLOOD SPECIMENOrdering Facility: [facility] Address: [address] [place] [address] Performed By: #### 2 4321-2, 02983-7 ####[facility] LABORATORYCLIA [id number] [address] CBC panel Auto (Bld)on 07-21 Erythrocyte distribution width (RBC) [Ratio] 24.5 % High 11.5-15.0 [facility] Comment on above: Order Comment: Speci men Type: BLOOD SPECIMENOrdering Facility: [facility] Address: [address] [place] [address] Performed By: #### 5 8410-2 ####[facility] LABORATORYCLIA [id number] [address] Hematocrit (Bld) [Volume fraction] 33.2 % Low 39.0-51.0 [facility] Comment on above: Order Comment: Speci men Type: BLOOD SPECIMENOrdering Facility: [facility] Address: [address] [place] [address] [place] [address] Performed By: #### 5 8410-2 ####[facility] LABORATORYCLIA [id number] [address] Hemoglobin (Bld) [Mass/Vol] 10.6 g/dL Low 13.0-17.0 [facility] Comment on above: Order Comment: Speci men Type: BLOOD SPECIMENOrdering Facility: [facility] Address: [address] [place] [address] Performed By: #### 5 8410-2 ####[facility] LABORATORYCLIA [id number] [place] [address] [place] MCH (RBC) [Entitic mass] 35.3 pg High 26.0-34.0 [facility] Comment on above: Order Comment: Speci men Type: BLOOD SPECIMENOrdering Facility: [facility] Address: [address] [place] [address] Performed By: #### 5 8410-2 ####[facility] LABORATORYCLIA [id number] [address] [place] MCHC (RBC) [Mass/Vol] 31.9 g/dL Normal 30.5-36.0 [facility] Comment on above: Order Comment: Speci men Type: BLOOD SPECIMENOrdering Facility: [facility] Address: [address] [place] [address] Performed By: #### 5 8410-2 ####[facility] LABORATORYCLIA [id number] [address] [place] MCV (RBC) [Entitic vol] 110.7 fL High 80.0-100.0 [facility] Comment on above: Order Comment: Speci men Type: BLOOD SPECIMENOrdering Facility: [facility] Address: [address] [place] [address] Performed By: #### 5 8410-2 ####[facility] LABORATORYCLIA [id number] [address] [place] Nucleated RBC (Bld) [#/Vol] 0.04 10*3/uL High <0.01 [facility] Comment on above: Order Comment: Speci men Type: BLOOD SPECIMENOrdering Facility: [facility] Address: [address] [place] [address] Performed By: #### 5 8410-2 ####[facility] LABORATORYCLIA [id number] [place] [id number] [place] Platelet mean volume (Bld) [Entitic vol] 11.6 fL Normal 9.0-12.7 [facility] Comment on above: Order Comment: Speci men Type: BLOOD SPECIMENOrdering Facility: [facility] Address: [address] [place] [address] Performed By: #### 5 8410-2 ####[facility] LABORATORYCLIA [id number] [place] [id number] [place] Platelets (Bld) [#/Vol] 208 10*3/uL Normal 150-400 [facility] Comment on above: Order Comment: Speci men Type: BLOOD SPECIMENOrdering Facility: [facility] Address: [address] [place] [address] Performed By: #### 5 8410-2 ####[facility] LABORATORYCLIA [id number] [place] [address] [place] RBC (Bld) [#/Vol] 3.00 10*6/uL Low 4.20-6.00 [facility] Comment on above: Order Comment: Speci men Type: BLOOD SPECIMENOrdering Facility: [facility] Address: [facility] [place] [address] Performed By: #### 5 8410-2 ####[facility] LABORATORYCLIA [id number] [place] [address] [place] WBC (Bld) [#/Vol] 7.04 10*3/uL Normal 3.70-11.00 [facility] Comment on above: Order Comment: Speci men Type: BLOOD SPECIMENOrdering Facility: [facility] Address: [facility] [place] [address] Performed By: #### 5 8410-2 ####[facility] LABORATORYCLIA [id number] [place] [id number] [facility] [place] CONSULT PROGon 07-21-2025 CONSULT PROG HNO ID: [id number] Author: OSCAR GUTIERREZ MD Service: Cardiovascular Medicine [...] 07/14/2025 HDL Cholesterol 49 07/14/2025 LDL Chol, Corona 28 07/14/2025 Cholesterol, Total 88 07/14/2025 Lab [...] Left v (more content not included)... Normal [facility] Natriuretic peptide.B prohormone N-Terminal [Mass/Vol] 7187 pg/mL High <450 [facility] Comment on above: Order Comment: Speci men Type: BLOOD SPECIMENOrdering Facility: [facility] Address: [address] [place] [address] Result Comment: NT-p roBNP results of less than 300 pg/mL likely rules out acute congestive heart failure with 99% predictive value. NOTE: These cutoff points are suggested for ACUTE CHF DIAGNOSIS only Less than 50 years\X09\ Greater than 450 pg/mL 50 - 75 years\X09\\X09\ Greater than 900 pg/mL Greater than 75 years\X09\ Greater than 1800 pg/mL Performed By: #### 2 4321-2, 11320-2 ####[facility] LABORATORYCLIA [id number] [place] [address] [facility] THERAPY NTon 07-21-2025 THERAPY NT HNO ID: [id number] Author: NAVIN BIGGS, OTR/L Service: ? Author Type: Occupational Therapist Type: Therapy (PT/OT/Speech/Resp) Filed: 07/21/2025 09:54 Note Text: Occupational Therapy Evaluation Summary SERVICE DATE: 07/21/2025 SERVICE TIME: 901 to 927 ROOM: [place] [address] OT 6 Clicks Score: 15 DISCHARGE RECOMMENDATIONS [...] [place] CURRENT HOSPITAL COURSE Pt presents to [facility] with complaints of extremity edema and after [...] chair. 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 Baseline Cognition: Oriented [...] Muscle Weakness (generalized) TREATMENT INTERVENTIONS Evaluation, Self Senior Living Management ([address]) Timed Code Treatment (minutes): 11 Skilled Treatment Time (minutes): 26 TRAINING AND EDUCATION PROVIDED Activity Adaptation/Compensatory Strategies, Assistive Device Use, Benefits of In-Hospital Mobility, Command Following, Cognitive Skills, Discharge Planning, Edema Management, Energy Conservation, Expected Functional Level, Functional Mobility Involving ADLs, Grooming Tasks, Insight into Deficits, Lower Extremity Dressing, Memory/Attention, Orientation, Role of Occupational Therapy, Safety/Judgment, Sitting Balance to Improve [place] with ADLs/Self-Care, Standing Balance to Improve [place] with ADLs/Self-Care, Transfer - Sit to Stand, [...] Additional Informa (more content not included)... Normal [facility] XR CHEST 1V FRONTALon 2024 XR CHEST [...] and likely hypoventilatory changes at the bases. Audio Visual Aids Director: BERNARDA Transcribe Date/Time: Jul 21 2025 3:35P Dictated by : SIDRA PERSAUD MD This examination was interpreted and the report reviewed and electronically signed by: SIDRA PERSAUD MD on Jul 21 2025 3:36PM EST [id number] Normal [facility] Basic metabolic 2000 panelon 07-20-2025 Anion gap [Moles/Vol] 6 mmol/L Normal 5-16 [facility] Comment on above: Order Comment: Speci men Type: BLOOD SPECIMENOrdering Facility: [facility] Address: [address] [place] [address] Performed By: #### 2 4321-2, 33714-1 ####[facility] LABORATORYCLIA [id number] [place] [id number] [place] Calcium [Mass/Vol] 9.0 mg/dL Normal 8.5-10.5 [facility] Comment on above: Order Comment: Speci men Type: BLOOD SPECIMENOrdering Facility: [facility] Address: [address] [place] [address] Performed By: #### 2 4321-2, ####[facility] LABORATORYCLIA [id number] [place] [address] [place] Chloride [Moles/Vol] 97 mmol/L Low 98-107 [facility] Comment on above: Order Comment: Speci men Type: BLOOD SPECIMENOrdering Facility: [facility] Address: [address] [place] [address] Performed By: #### 2 4321-2, ####[facility] LABORATORYCLIA [id number] [place] [address] [place] CO2 [Moles/Vol] 36 mmol/L High 21-32 [facility] Comment on above: Order Comment: Speci men Type: BLOOD SPECIMENOrdering Facility: [facility] Address: [address] [place] [address] Performed By: #### 2 4321-2, ####[facility] LABORATORYCLIA [id number] [place] [address] [place] Creatinine [Mass/Vol] 1.11 mg/dL Normal 0.50-1.40 [facility] Comment on above: Order Comment: Speci men Type: BLOOD SPECIMENOrdering Facility: [facility] Address: [address] [place] [address] Result Comment: Kierra ents receiving either N-Acetylcysteine (NAC) or Metamizole prior to venipuncture, may have falsely depressed results. Performed By: #### 2 4321-2, ####[facility] LABORATORYCLIA [id number] [place] [address] [place] eGFRcr SerPlBld CKD-EPI 2020 63 mL/min/1.73m??? Normal >=60 [facility] Comment on above: Order Comment: Elfego gilbert Type: BLOOD SPECIMENOrdering Facility: [facility] Address: [address] [place] [address] Result Comment: Concepción mated Glomerular Filtration Rate [...] actual GFR. Performed By: #### 2 4321-2, 22061-7 ####[facility] LABORATORYCLIA [id number] [place] [id number] [place] Glucose [Mass/Vol] 107 mg/dL High 70-100 [facility] Comment on above: Order Comment: Elfego gilbert Type: BLOOD SPECIMENOrdering Facility: [facility] Address: [address] [place] [address] Result Comment: The [place] Diabetes Association (ADA) provides guidance for cutoff [...] Standards of Medical Care in Diabetes 2016, [place] Diabetes Association. Diabetes Care. 2016.39(Suppl 1). Results may be falsely elevated after the administration of Sulfapyridine. Results may be falsely depressed after the administration of Sulfasalazine. Performed By: #### 2 4321-2, 23275-9 ####[facility] LABORATORYCLIA [id number] [place] [address] [place] Potassium [Moles/Vol] 5.0 mmol/L Normal 3.5-5.1 [facility] Comment on above: Order Comment: Speci men Type: BLOOD SPECIMENOrdering Facility: [facility] Address: [address] [place] [address] Performed By: #### 2 4321-2, ####[facility] LABORATORYCLIA [id number] [place] [address] [facility] Sodium [Moles/Vol] 139 mmol/L Normal 136-145 [facility] Comment on above: Order Comment: Speci men Type: BLOOD SPECIMENOrdering Facility: [facility] Address: [address] [place] [address] Performed By: #### 2 4321-2, ####[facility] LABORATORYCLIA [id number] [place] [id number] [place] Urea nitrogen [Mass/Vol] 31 mg/dL High 7-26 [facility] Comment on above: Order Comment: Speci men Type: BLOOD SPECIMENOrdering Facility: [facility] Address: [address] [place] [address] Performed By: #### 2 4321-2, ####[facility] LABORATORYCLIA [id number] [place] [address] [place] CBC panel Auto (Bld)on 07-20 Erythrocyte distribution width (RBC) [Ratio] 24.5 % High 11.5-15.0 [facility] Comment on above: Order Comment: Speci men Type: BLOOD SPECIMENOrdering Facility: [facility] Address: [address] [place] [address] Performed By: #### 5 8410-2 ####[facility] LABORATORYCLIA [id number] [place] [id number] [place] Hematocrit (Bld) [Volume fraction] 35.1 % Low 39.0-51.0 [facility] Comment on above: Order Comment: Speci men Type: BLOOD SPECIMENOrdering Facility: [facility] Address: [address] [place] [address] Performed By: #### 5 8410-2 ####[facility] LABORATORYCLIA [id number] [place] [address] [place] Hemoglobin (Bld) [Mass/Vol] 11.3 g/dL Low 13.0-17.0 [facility] Comment on above: Order Comment: Speci men Type: BLOOD SPECIMENOrdering Facility: [facility] Address: [address] [place] [address] Performed By: #### 5 8410-2 ####[facility] LABORATORYCLIA [id number] [place] [address] [place] MCH (RBC) [Entitic mass] 35.5 pg High 26.0-34.0 [facility] Comment on above: Order Comment: Speci men Type: BLOOD SPECIMENOrdering Facility: [facility] Address: [address] [place] [address] Performed By: #### 5 8410-2 ####[facility] LABORATORYCLIA [id number] [address] [place] MCHC (RBC) [Mass/Vol] 32.2 g/dL Normal 30.5-36.0 [facility] Comment on above: Order Comment: Speci men Type: BLOOD SPECIMENOrdering Facility: [facility] Address: [address] [place] [address] Performed By: #### 5 8410-2 ####[facility] LABORATORYCLIA [id number] [address] [place] MCV (RBC) [Entitic vol] 110.4 fL High 80.0-100.0 [facility] Comment on above: Order Comment: Speci men Type: BLOOD SPECIMENOrdering Facility: [facility] Address: [address] [place] [address] Performed By: #### 5 8410-2 ####[facility] LABORATORYIA [id number] [address] [place] Nucleated RBC (Bld) [#/Vol] 0.03 10*3/uL High <0.01 [facility] Comment on above: Order Comment: Speci men Type: BLOOD SPECIMENOrdering Facility: [facility] Address: [address] [place] [id number] Performed By: #### 5 8410-2 ####[facility] LABORATORYCLIA [id number] [place] [id number] [place] Platelet mean volume (Bld) [Entitic vol] 10.8 fL Normal 9.0-12.7 [facility] Comment on above: Order Comment: Speci men Type: BLOOD SPECIMENOrdering Facility: [facility] Address: [address] [place] [address] Performed By: #### 5 8410-2 ####[facility] LABORATORYCLIA [id number] [place] [id number] [place] [facility] [place] Platelets (Bld) [#/Vol] 178 10*3/uL Normal 150-400 [facility] Comment on above: Order Comment: Speci men Type: BLOOD SPECIMENOrdering Facility: [facility] Address: [address] [place] [address] Performed By: #### 5 8410-2 ####[facility] LABORATORYCLIA [id number] [place] [id number] [place] RBC (Bld) [#/Vol] 3.18 10*6/uL Low 4.20-6.00 [facility] Comment on above: Order Comment: Speci men Type: BLOOD SPECIMENOrdering Facility: [facility] Address: [address] [place] [address] Performed By: #### 5 8410-2 ####[facility] LABORATORYCLIA [id number] [place] [id number] [place] WBC (Bld) [#/Vol] 10.85 10*3/uL Normal 3.70-11.00 [facility] Comment on above: Order Comment: Speci men Type: BLOOD SPECIMENOrdering Facility: [facility] Address: [address] [place] [address] Performed By: #### 5 8410-2 ####[facility] LABORATORYCLIA [id number] [place] [id number] [place] CONSULT PROGon 07-20-2025 CONSULT PROG HNO ID: [id number] Author: ALESHA SANDHU PA-C Service: Cardiovascular Medicine Author Type: Physician Auction Block Clerk Type: Consult Progress Note Filed: 07/20/2025 17:28 [...] (2D bipla (more content not included)... Normal [facility] Magnesium SerPl-mCncon 07-20 Magnesium [Mass/Vol] 2.4 mg/dL Normal 1.6-2.6 [facility] Comment on above: Order Comment: Speci men Type: BLOOD SPECIMENOrdering Facility: [facility] Address: [address] [place] [address] Performed By: #### 2 4321-2, ####[facility] LABORATORYCLIA [id number] [place] [address] [place] Basic metabolic 2000 panelon 07-19-2025 Anion gap [Moles/Vol] 13 mmol/L Normal 5-16 [facility] Comment on above: Order Comment: Speci men Type: BLOOD SPECIMENOrdering Facility: [facility] Address: [address] [facility] [place] [id number] Performed By: #### 2 432-2, ####[facility] LABORATORYCLIA [id number] [place] [address] [place] Calcium [Mass/Vol] 8.8 mg/dL Normal 8.5-10.5 [facility] Comment on above: Order Comment: Speci men Type: BLOOD SPECIMENOrdering Facility: [facility] Address: [address] [place], [place] [address] [phone] Performed By: #### 2 4320-12, ####[facility] LABORATORYCLIA [id number] [place] [address] [place] Chloride [Moles/Vol] 99 mmol/L Normal 98-107 [facility] Comment on above: Order Comment: Speci men Type: BLOOD SPECIMENOrdering Facility: [facility] Address: [address] [place] [address] Performed By: #### 2 4320-2, ####[facility] LABORATORYCLIA [id number] [place] [address] [place] CO2 [Moles/Vol] 28 mmol/L Normal 21-32 [facility] Comment on above: Order Comment: Speci men Type: BLOOD SPECIMENOrdering Facility: [facility] Address: [address] [place] [address] Performed By: #### 2 432-2, ####[facility] LABORATORYCLIA [id number] [place] [address] [place] Creatinine [Mass/Vol] 1.00 mg/dL Normal 0.50-1.40 [facility] Comment on above: Order Comment: Elfego gilbert Type: BLOOD SPECIMENOrdering Facility: [facility] Address: [address] [place] [phone] Result Comment: Kierra ents receiving either N-Acetylcysteine (NAC) or Metamizole prior to venipuncture, may have falsely depressed results. Performed By: #### 2 4321-2, ####[facility] LABORATORYCLIA [id number] [place] [address] [place] eGFRcr SerPlBld CKD-EPI 2020 72 mL/min/1.73m??? Normal >=60 [facility] Comment on above: Order Comment: Elfego gilbert Type: BLOOD SPECIMENOrdering Facility: [facility] Address: [address] [place] [address] Result Comment: Concepción mated Glomerular Filtration Rate [...] actual GFR. Performed By: #### 2 4321-2, ####[facility] LABORATORYCLIA [id number] [place] [address] [place] Glucose [Mass/Vol] 116 mg/dL High 70-100 [facility] Comment on above: Order Comment: Elfego gilbert Type: BLOOD SPECIMENOrdering Facility: [facility] Address: [address] [place] [address] Result Comment: The [place] Diabetes Association (ADA) provides guidance for cutoff [...] Standards of Medical Care in Diabetes 2016, [place] Diabetes Association. Diabetes Care. 2016.39(Suppl 1). Results may be falsely elevated after the administration of Sulfapyridine. Results may be falsely depressed after the administration of Sulfasalazine. Performed By: #### 2 432-2, ####[facility] LABORATORYCLIA [id number] [place] [id number] [place] Potassium [Moles/Vol] 4.4 mmol/L Normal 3.5-5.1 [facility] Comment on above: Order Comment: Speci men Type: BLOOD SPECIMENOrdering Facility: [facility] Address: [address] [place] [address] Performed By: #### 2 4322, ####[facility] LABORATORYCLIA [id number] [place] [address] [place] Sodium [Moles/Vol] 140 mmol/L Normal 136-145 [facility] Comment on above: Order Comment: Speci men Type: BLOOD SPECIMENOrdering Facility: [facility] Address: [address] [place] [address] Performed By: #### 2 43211-10, ####[facility] LABORATORYCLIA [id number] [place] [id number] [place] Urea nitrogen [Mass/Vol] 21 mg/dL Normal 7-26 [facility] Comment on above: Order Comment: Speci men Type: BLOOD SPECIMENOrdering Facility: [facility] Address: [address] [place] [address] Performed By: #### 2 4322, ####[facility] LABORATORYCLIA [id number] [place] [id number] [place] CBC panel Auto (Bld)on 07-19 Erythrocyte distribution width (RBC) [Ratio] 24.4 % High 11.5-15.0 [facility] Comment on above: Order Comment: Speci men Type: BLOOD SPECIMENOrdering Facility: [facility] Address: [address] [place] [address] Performed By: #### 5 8410-2 ####[facility] LABORATORYCLIA [id number] [address] Hematocrit (Bld) [Volume fraction] 32.6 % Low 39.0-51.0 [facility] Comment on above: Order Comment: Speci men Type: BLOOD SPECIMENOrdering Facility: [facility] Address: [address] [place] [address] Performed By: #### 5 8410-2 ####[facility] LABORATORYCLIA [id number] [address] [place] Hemoglobin (Bld) [Mass/Vol] 10.5 g/dL Low 13.0-17.0 [facility] Comment on above: Order Comment: Speci men Type: BLOOD SPECIMENOrdering Facility: [facility] Address: [address] [place] [address] Performed By: #### 5 8410-2 ####[facility] LABORATORYCLIA [id number] [address] [place] MCH (RBC) [Entitic mass] 34.8 pg High 26.0-34.0 [facility] Comment on above: Order Comment: Speci men Type: BLOOD SPECIMENOrdering Facility: [facility] Address: [address] [place] [address] Performed By: #### 5 8410-2 ####[facility] LABORATORYCLIA [id number] [place] [address] [place] MCHC (RBC) [Mass/Vol] 32.2 g/dL Normal 30.5-36.0 [facility] Comment on above: Order Comment: Speci men Type: BLOOD SPECIMENOrdering Facility: [facility] Address: [address] [place] [address] Performed By: #### 5 8410-2 ####[facility] LABORATORYCLIA [id number] [place] [address] [place] MCV (RBC) [Entitic vol] 107.9 fL High 80.0-100.0 [facility] Comment on above: Order Comment: Speci men Type: BLOOD SPECIMENOrdering Facility: [facility] Address: [address] [place] [address] Performed By: #### 5 8410-2 ####[facility] LABORATORYCLIA [id number] [place] [address] [place] Nucleated RBC (Bld) [#/Vol] 0.04 10*3/uL High <0.01 [facility] Comment on above: Order Comment: Speci men Type: BLOOD SPECIMENOrdering Facility: [facility] Address: [address] [place] [address] Performed By: #### 5 8410-2 ####[facility] LABORATORYCLIA [id number] [address] OF [place] Platelet mean volume (Bld) [Entitic vol] 12.1 fL Normal 9.0-12.7 [facility] Comment on above: Order Comment: Speci men Type: BLOOD SPECIMENOrdering Facility: [facility] Address: [address] [place] [address] Performed By: #### 5 8410-2 ####[facility] LABORATORYCLIA [id number] [address] [place] Platelets (Bld) [#/Vol] 152 10*3/uL Normal 150-400 [facility] Comment on above: Order Comment: Speci men Type: BLOOD SPECIMENOrdering Facility: [facility] Address: [address] [place] [address] Result Comment: No c lot detected. Performed By: #### 5 8410-2 ####[facility] LABORATORYCLIA [id number] [place] [address] [place] RBC (Bld) [#/Vol] 3.02 10*6/uL Low 4.20-6.00 [facility] Comment on above: Order Comment: Speci men Type: BLOOD SPECIMENOrdering Facility: [facility] Address: [address] [place], [place] [address] [address] Performed By: #### 5 8410-2 ####[facility] LABORATORYCLIA [id number] [place] [id number] [facility] WBC (Bld) [#/Vol] 6.75 10*3/uL Normal 3.70-11.00 [facility] Comment on above: Order Comment: Speci men Type: BLOOD SPECIMENOrdering Facility: [facility] Address: [address] [address] Performed By: #### 5 8410-2 ####[facility] LABORATORYCLIA [id number] [place] [id number] [facility] CONSULT PROGon 07-19-2025 CONSULT PROG HNO ID: [id number] Author: MINERVA DENSON APRN.TELEPHONE ORDER SUPERVISOR Service: Cardiovascular Medicine Author Type: Nurse Practitioner [...] 07/14/2025 HDL Cholesterol 49 07/14/2025 LDL Chol, [place] 28 07/14/2025 Cholesterol, Total 88 07/14/2025 Lab Results Component Value Date HSTROP 64.8 (H) 07/14/2025 HSTROP 90.6 (H) 07/14/2025 HSTROP 77.7 (H) 07/13/2025 PBN (more content not included)... Normal [facility] Magnesium SerPl-mCncon 07-19 Magnesium [Mass/Vol] 2.4 mg/dL Normal 1.6-2.6 [facility] Comment on above: Order Comment: Speci men Type: BLOOD SPECIMENOrdering Facility: [facility] Address: [address] [place] [address] [place] [address] Performed By: #### 2 4321-2, 90714-9 ####[facility] LABORATORYCLIA [id number] [address] THERAPY NTon 07-19-2025 THERAPY NT HNO ID: [id number] Author: JOVANI DE LUNA PT Service: ? Author Type: Physical Therapist Type: Therapy (PT/OT/Speech/Resp) Filed: 07/19/2025 12:29 Note Text: Physical Therapy Evaluation Summary SERVICE DATE: 07/19/2025 SERVICE TIME: 1118 to 1204 ROOM: [place] [address] PT 6 Clicks Score: 16 DISCHARGE RECOMMENDATIONS [...] [place] CURRENT HOSPITAL COURSE Pt presents to [facility] with complaints of extremity edema and after [...] on feet TREATMENT INTERVENTIONS Evaluation, Therapeutic Exercise (57423) Timed Code Treatment (minutes): 26 Skilled Treatment [...] Balance, S (more content not included)... Normal [facility] Basic metabolic 2000 panelon 07-18-2025 Anion gap [Moles/Vol] 10 mmol/L Normal 5-16 [facility] Comment on above: Order Comment: Speci men Type: BLOOD SPECIMENOrdering Facility: [facility] Address: [address] [place] [address] Performed By: #### 2 4321-2 ####[facility] LABORATORYCLIA [id number] [place] [address] [place] Calcium [Mass/Vol] 9.2 mg/dL Normal 8.5-10.5 [facility] Comment on above: Order Comment: Speci men Type: BLOOD SPECIMENOrdering Facility: [facility] Address: [address] [place] [address] Performed By: #### 2 4321-2 ####[facility] LABORATORYCLIA [id number] [place] [address] [place] Chloride [Moles/Vol] 99 mmol/L Normal 98-107 [facility] Comment on above: Order Comment: Speci men Type: BLOOD SPECIMENOrdering Facility: [facility] Address: [address] [place] [address] Performed By: #### 2 4321-2 ####[facility] LABORATORYCLIA [id number] [place] [address] [place] CO2 [Moles/Vol] 30 mmol/L Normal 21-32 [facility] Comment on above: Order Comment: Speci men Type: BLOOD SPECIMENOrdering Facility: [facility] Address: [address] [place] [address] Performed By: #### 2 4321-2 ####[facility] LABORATORYCLIA [id number] [place] [id number] [place] Creatinine [Mass/Vol] 0.99 mg/dL Normal 0.50-1.40 [facility] Comment on above: Order Comment: Speci men Type: BLOOD SPECIMENOrdering Facility: [facility] Address: [address] [place] [address] Result Comment: Kierra ents receiving either N-Acetylcysteine (NAC) or Metamizole prior to venipuncture, may have falsely depressed results. Performed By: #### 2 4321-2 ####[facility] LABORATORYCLIA [id number] [address] [place] eGFRcr SerPlBld CKD-EPI 2020 73 mL/min/1.73m??? Normal >=60 [facility] Comment on above: Order Comment: Speci men Type: BLOOD SPECIMENOrdering Facility: [facility] Address: [address] [place] [address] Result Comment: Concepción mated Glomerular Filtration Rate [...] actual GFR. Performed By: #### 2 4321-2 ####[facility] LABORATORYCLIA [id number] [place] [address] [place] Glucose [Mass/Vol] 132 mg/dL High 70-100 [facility] Comment on above: Order Comment: Speci men Type: BLOOD SPECIMENOrdering Facility: [facility] Address: [address] [place] [address] Result Comment: The [place] Diabetes Association (ADA) provides guidance for cutoff [...] Standards of Medical Care in Diabetes 2016, [place] Diabetes Association. Diabetes Care. 2016.39(Suppl 1). Results may be falsely elevated after the administration of Sulfapyridine. Results may be falsely depressed after the administration of Sulfasalazine. Performed By: #### 2 4321-2 ####[facility] LABORATORYCLIA [id number] [place] [address] [place] Potassium [Moles/Vol] 4.9 mmol/L Normal 3.5-5.1 [facility] Comment on above: Order Comment: Elfego gilbert Type: BLOOD SPECIMENOrdering Facility: [facility] Address: [address] [place] [address] Performed By: #### 2 4321-2 ####[facility] LABORATORYCLIA [id number] [place] [address] [place] Sodium [Moles/Vol] 139 mmol/L Normal 136-145 [facility] Comment on above: Order Comment: Elfego gilbert Type: BLOOD SPECIMENOrdering Facility: [facility] Address: [address] [place] [address] Performed By: #### 2 4321-2 ####[facility] LABORATORYCLIA [id number] [place] [address] [place] Urea nitrogen [Mass/Vol] 27 mg/dL High 7-26 [facility] Comment on above: Order Comment: Elfego gilbert Type: BLOOD SPECIMENOrdering Facility: [facility] Address: [address] [place] [address] Performed By: #### 2 4321-2 ####[facility] LABORATORYCLIA [id number] [place] [address] [place] CBC panel Auto (Bld)on 07-18 Erythrocyte distribution width (RBC) [Ratio] 24.8 % High 11.5-15.0 [facility] Comment on above: Order Comment: Speci men Type: BLOOD SPECIMENOrdering Facility: [facility] Address: [address] [place] [address] Performed By: #### 5 8410-2 ####[facility] LABORATORYCLIA [id number] [place] [address] [place] [facility] [place] Hematocrit (Bld) [Volume fraction] 33.0 % Low 39.0-51.0 [facility] Comment on above: Order Comment: Speci men Type: BLOOD SPECIMENOrdering Facility: [facility] Address: [address] [place] [address] Performed By: #### 5 8410-2 ####[facility] LABORATORYCLIA [id number] [place] [address] [place] Hemoglobin (Bld) [Mass/Vol] 10.7 g/dL Low 13.0-17.0 [facility] Comment on above: Order Comment: Speci men Type: BLOOD SPECIMENOrdering Facility: [facility] Address: [address] [place] [address] Performed By: #### 5 8410-2 ####[facility] LABORATORYCLIA [id number] [place] [address] [place] MCH (RBC) [Entitic mass] 35.5 pg High 26.0-34.0 [facility] Comment on above: Order Comment: Speci men Type: BLOOD SPECIMENOrdering Facility: [facility] Address: [address] [place] [address] Performed By: #### 5 8410-2 ####[facility] LABORATORYCLIA [id number] [address] [place] MCHC (RBC) [Mass/Vol] 32.4 g/dL Normal 30.5-36.0 [facility] Comment on above: Order Comment: Speci men Type: BLOOD SPECIMENOrdering Facility: [facility] Address: [address] [place] [address] Performed By: #### 5 8410-2 ####[facility] LABORATORYCLIA [id number] [place] [id number] [facility] OF [place] MCV (RBC) [Entitic vol] 109.6 fL High 80.0-100.0 [facility] Comment on above: Order Comment: Speci men Type: BLOOD SPECIMENOrdering Facility: [facility] Address: [address] [place] [address] Performed By: #### 5 8410-2 ####[facility] LABORATORYCLIA [id number] [address] Nucleated RBC (Bld) [#/Vol] 0.03 10*3/uL High <0.01 [facility] Comment on above: Order Comment: Speci men Type: BLOOD SPECIMENOrdering Facility: [facility] Address: [address] [place] [address] Performed By: #### 5 8410-2 ####[facility] LABORATORYCLIA [id number] [address] [place] Platelet mean volume (Bld) [Entitic vol] 11.2 fL Normal 9.0-12.7 [facility] Comment on above: Order Comment: Speci men Type: BLOOD SPECIMENOrdering Facility: [facility] Address: [address] [place] [address] Performed By: #### 5 8410-2 ####[facility] LABORATORYCLIA [id number] [place] [address] [place] Platelets (Bld) [#/Vol] 191 10*3/uL Normal 150-400 [facility] Comment on above: Order Comment: Speci men Type: BLOOD SPECIMENOrdering Facility: [facility] Address: [address] [place] [address] Performed By: #### 5 8410-2 ####[facility] LABORATORYCLIA [id number] [place] [address] [place] RBC (Bld) [#/Vol] 3.01 10*6/uL Low 4.20-6.00 [facility] Comment on above: Order Comment: Speci men Type: BLOOD SPECIMENOrdering Facility: [facility] Address: [address] [place] [address] Performed By: #### 5 8410-2 ####[facility] LABORATORYCLIA [id number] [address] WBC (Bld) [#/Vol] 7.25 10*3/uL Normal 3.70-11.00 [facility] Comment on above: Order Comment: Speci men Type: BLOOD SPECIMENOrdering Facility: [facility] Address: [address] [place] [address] Performed By: #### 5 8410-2 ####[facility] LABORATORYCLIA [id number] [place] [id number] [facility] CONSULT PROGon 07-18-2025 CONSULT PROG HNO ID: [id number] Author: ALESHA SANDHU PA-C Service: Cardiovascular Medicine Author Type: Physician Auction Block Clerk Type: Consult Progress Note Filed: 07/18/2025 15:19 [...] - The left (more content not included)... [facility] BRIEF OP NOTon 07-17-2025 BRIEF OP NOT HNO ID: [id number] Author: DOMINGO JOHNSTON MD Service: Interventional Cardiology Author Type: Physician Type: Brief Op Note Filed: 07/17/2025 15:52 Note Text: OPERATIVE NOTE Procedure DATE: 07/17/25 Proceduralist(s) and Auction Block Clerk(s): Domingo Sanchez MD Procedures: 1. Left heart cath coronary angiography. 2. Bypass graft angiography. Brief History : 89 years old white male who is referred for coronary angiography possible revascularization with diagnosis of non-STEMI. 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 Under complete aseptic and sterile condition 2% Xylocaine without epinephrine was used local anesthesia. Using modified Seldinger technique 5 Kisw[place]ili arterial sheath was placed left radial artery angiography was performed utilizing 5 Kiswahili multipurpose and 5 K[place]ili JL 3 5 catheters at the conclusion [...] proven to be patent. Patient has diffuse twin hills coronary artery disease the drop of ejection fraction not sure is ischemic cardiomyopathy. Recommend continue risk factor modifications and medical management. SIGNATURE: Domingo Sanchez MD PATIENT NAME:Srini Luis DATE: 07/17/25 TIME: 3:05 PM Normal [facility] Basic metabolic 2000 panelon 07-17-2025 Anion gap [Moles/Vol] 11 mmol/L Normal 5-16 [facility] Comment on above: Order Comment: Speci men Type: BLOOD SPECIMENOrdering Facility: [facility] Address: [address] [place] [address] Performed By: #### 2 4321-2 ####[facility] LABORATORYCLIA [id number] [place] [id number] [place] Calcium [Mass/Vol] 9.2 mg/dL Normal 8.5-10.5 [facility] Comment on above: Order Comment: Speci men Type: BLOOD SPECIMENOrdering Facility: [facility] Address: [address] [place] [address] Performed By: #### 2 4321-2 ####[facility] LABORATORYCLIA [id number] [place] [address] [place] Chloride [Moles/Vol] 98 mmol/L Normal 98-107 [facility] Comment on above: Order Comment: Speci men Type: BLOOD SPECIMENOrdering Facility: [facility] Address: [address] [place] [address] Performed By: #### 2 4321-2 ####[facility] LABORATORYCLIA [id number] [place] [id number] [place] CO2 [Moles/Vol] 30 mmol/L Normal 21-32 [facility] Comment on above: Order Comment: Speci men Type: BLOOD SPECIMENOrdering Facility: [facility] Address: [address] [place] [address] Performed By: #### 2 4321-2 ####[facility] LABORATORYCLIA [id number] [place] [address] [place] Creatinine [Mass/Vol] 0.93 mg/dL Normal 0.50-1.40 [facility] Comment on above: Order Comment: Speci men Type: BLOOD SPECIMENOrdering Facility: [facility] Address: [address] [place] [address] Result Comment: Kierra ents receiving either N-Acetylcysteine (NAC) or Metamizole prior to venipuncture, may have falsely depressed results. Performed By: #### 2 4321-2 ####[facility] LABORATORYCLIA [id number] [place] [id number] [place] eGFRcr SerPlBld CKD-EPI 2020 78 mL/min/1.73m??? Normal >=60 [facility] Comment on above: Order Comment: Elfego gilbert Type: BLOOD SPECIMENOrdering Facility: [facility] Address: [address] [place] [address] Result Comment: Concepción mated Glomerular Filtration Rate [...] actual GFR. Performed By: #### 2 4321-2 ####[facility] LABORATORYCLIA [id number] [place] [address] [place] Glucose [Mass/Vol] 95 mg/dL Normal 70-100 [facility] Comment on above: Order Comment: Elfego gilbert Type: BLOOD SPECIMENOrdering Facility: [facility] Address: [address] [place] [address] Result Comment: The [place] Diabetes Association (ADA) provides guidance for cutoff [...] Standards of Medical Care in Diabetes 2016, [place] Diabetes Association. Diabetes Care. 2016.39(Suppl 1). Results may be falsely elevated after the administration of Sulfapyridine. Results may be falsely depressed after the administration of Sulfasalazine. Performed By: #### 2 4321-2 ####[facility] LABORATORYCLIA [id number] [place] [id number] [place] Potassium [Moles/Vol] Normal [facility] Comment on above: Order Comment: Speci men Type: BLOOD SPECIMENOrdering Facility: [facility] Address: [address] [place] [address] Result Comment: Unab le to assay due to interference from hemolysis. Suggest reorder as clinically indicated. NOTIFIED CAMI ON 7M OF HEMOLYZED K Performed By: #### 2 4321-2 ####[facility] LABORATORYCLIA [id number] [place] [id number] [place] Sodium [Moles/Vol] 139 mmol/L Normal 136-145 [facility] Comment on above: Order Comment: Speci men Type: BLOOD SPECIMENOrdering Facility: [facility] Address: [address] [place] [address] Performed By: #### 2 4321-2 ####[facility] LABORATORYCLIA [id number] [place] [address] [place] Urea nitrogen [Mass/Vol] 24 mg/dL Normal 7-26 [facility] Comment on above: Order Comment: Speci men Type: BLOOD SPECIMENOrdering Facility: [facility] Address: [address] [place] [address] Performed By: #### 2 4321-2 ####[facility] LABORATORYCLIA [id number] [place] [id number] [place] CARD CATH DIAGNOSTICon 07-17 CARD CATH DIAGNOSTIC Site Id: [facility] Lab #: DEFAULT Study Date: 07/17/2025 Start Time: End Time: Name Duty Domingo Sanchez MD PROC 1 Addison Joseph RT(R) PROC SCRUB 1 Larry Boykin RN PROC CIRC 1 Marcos Lazo RN PROC CIRC 2 eFrnanda Garber RN PROC RECORD 1 + + [...] artery disease 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 Patient has diffuse twin hills coronary artery disease the drop of ejection [...] -----+ PRO (more content not included)... Normal [facility] CBC panel Auto (Bld)on 07-17 Erythrocyte distribution width (RBC) [Ratio] 24.8 % High 11.5-15.0 [facility] Comment on above: Order Comment: Elfego gilbert Type: BLOOD SPECIMENOrdering Facility: [facility] Address: [address] [place] [address] Performed By: #### 5 8410-2 ####[facility] LABORATORYCLIA [id number] [place] [address] [place] Hematocrit (Bld) [Volume fraction] 35.1 % Low 39.0-51.0 [facility] Comment on above: Order Comment: Speci men Type: BLOOD SPECIMENOrdering Facility: [facility] Address: [address] [place] [address] Performed By: #### 5 8410-2 ####[facility] LABORATORYCLIA [id number] [place] [address] [place] Hemoglobin (Bld) [Mass/Vol] 11.5 g/dL Low 13.0-17.0 [facility] Comment on above: Order Comment: Speci men Type: BLOOD SPECIMENOrdering Facility: [facility] Address: [address] [place] [address] Performed By: #### 5 8410-2 ####[facility] LABORATORYCLIA [id number] [place] [address] [place] MCH (RBC) [Entitic mass] 36.1 pg High 26.0-34.0 [facility] Comment on above: Order Comment: Speci men Type: BLOOD SPECIMENOrdering Facility: [facility] Address: [address] [place] [address] Performed By: #### 5 8410-2 ####[facility] LABORATORYCLIA [id number] [place] [address] [place] MCHC (RBC) [Mass/Vol] 32.8 g/dL Normal 30.5-36.0 [facility] Comment on above: Order Comment: Speci men Type: BLOOD SPECIMENOrdering Facility: [facility] Address: [address] [place] [address] Performed By: #### 5 8410-2 ####[facility] LABORATORYCLIA [id number] [place] [address] [place] MCV (RBC) [Entitic vol] 110.0 fL High 80.0-100.0 [facility] Comment on above: Order Comment: Speci men Type: BLOOD SPECIMENOrdering Facility: [facility] Address: [address] [place] [address] Performed By: #### 5 8410-2 ####[facility] LABORATORYCLIA [id number] [place] [id number] [place] Nucleated RBC (Bld) [#/Vol] 0.04 10*3/uL High <0.01 [facility] Comment on above: Order Comment: Speci men Type: BLOOD SPECIMENOrdering Facility: [facility] Address: [address] [place] [address] Performed By: #### 5 8410-2 ####[facility] LABORATORYCLIA [id number] [place] [id number] [place] Platelet mean volume (Bld) [Entitic vol] 12.0 fL Normal 9.0-12.7 [facility] Comment on above: Order Comment: Speci men Type: BLOOD SPECIMENOrdering Facility: [facility] Address: [address] [place] [address] Performed By: #### 5 8410-2 ####[facility] LABORATORYCLIA [id number] [place] [address] [place] Platelets (Bld) [#/Vol] 199 10*3/uL Normal 150-400 [facility] Comment on above: Order Comment: Speci men Type: BLOOD SPECIMENOrdering Facility: [facility] Address: [address] [place] [address] Performed By: #### 5 8410-2 ####[facility] LABORATORYCLIA [id number] [place] [address] [place] RBC (Bld) [#/Vol] 3.19 10*6/uL Low 4.20-6.00 [facility] Comment on above: Order Comment: Speci men Type: BLOOD SPECIMENOrdering Facility: [facility] Address: [address] [place] [address] Performed By: #### 5 8410-2 ####[facility] LABORATORYCLIA [id number] [place] [id number] [place] WBC (Bld) [#/Vol] 7.36 10*3/uL Normal 3.70-11.00 [facility] Comment on above: Order Comment: Speci men Type: BLOOD SPECIMENOrdering Facility: [facility] Address: [address] [place] [address] Performed By: #### 5 8410-2 ####[facility] LABORATORYCLIA [id number] [place] [id number] [place] [facility] aPTT PPPon 07-17-2025 aPTT Coag (PPP) [Time] 118.1 s High 23.0-32.4 [facility] Comment on above: Order Comment: Speci men Type: BLOOD SPECIMENOrdering Facility: [facility] Address: [address] [place] [address] Performed By: #### 1 4979-9 ####[facility] LABORATORYCLIA [id number] [place] [id number] [place] [facility] aPTT Coag (PPP) [Time] 48.9 s High 23.0-32.4 [facility] Comment on above: Order Comment: Speci men Type: BLOOD SPECIMENOrdering Facility: [facility] Address: [address] [place] [address] Performed By: #### 1 4979-9 ####[facility] LABORATORYCLIA [id number] [place] [id number] [place] Basic metabolic 2000 panelon 07-16-2025 Anion gap [Moles/Vol] 12 mmol/L Normal 5-16 [facility] Comment on above: Order Comment: Speci men Type: BLOOD SPECIMENOrdering Facility: [facility] Address: [address] [place] [address] Performed By: #### 2 4321-2 ####[facility] LABORATORYCLIA [id number] [place] [id number] [place] Calcium [Mass/Vol] 8.9 mg/dL Normal 8.5-10.5 [facility] Comment on above: Order Comment: Speci men Type: BLOOD SPECIMENOrdering Facility: [facility] Address: [address] [place] [address] Performed By: #### 2 4321-2 ####[facility] LABORATORYCLIA [id number] [place] [address] [place] Chloride [Moles/Vol] 100 mmol/L Normal 98-107 [facility] Comment on above: Order Comment: Speci men Type: BLOOD SPECIMENOrdering Facility: [facility] Address: [address] [place] [address] Performed By: #### 2 4321-2 ####[facility] LABORATORYCLIA [id number] [place] [address] [place] CO2 [Moles/Vol] 27 mmol/L Normal 21-32 [facility] Comment on above: Order Comment: Speci men Type: BLOOD SPECIMENOrdering Facility: [facility] Address: [address] [place] [address] Performed By: #### 2 4321-2 ####[facility] LABORATORYCLIA [id number] [place] [address] [place] Creatinine [Mass/Vol] 1.09 mg/dL Normal 0.50-1.40 [facility] Comment on above: Order Comment: Speci men Type: BLOOD SPECIMENOrdering Facility: [facility] Address: [address] [place] [address] Result Comment: Kierra ents receiving either N-Acetylcysteine (NAC) or Metamizole prior to venipuncture, may have falsely depressed results. Performed By: #### 2 4321-2 ####[facility] LABORATORYCLIA [id number] [place] [address] [place] eGFRcr SerPlBld CKD-EPI 2020 65 mL/min/1.73m??? Normal >=60 [facility] Comment on above: Order Comment: Speci men Type: BLOOD SPECIMENOrdering Facility: [facility] Address: [address] [place] [address] Result Comment: Concepción mated Glomerular Filtration Rate [...] actual GFR. Performed By: #### 2 4321-2 ####[facility] LABORATORYCLIA [id number] [place] [address] [place] Glucose [Mass/Vol] 142 mg/dL High 70-100 [facility] Comment on above: Order Comment: Elfego gilbert Type: BLOOD SPECIMENOrdering Facility: [facility] Address: [address] [place] [address] Result Comment: The [place] Diabetes Association (ADA) provides guidance for cutoff [...] Standards of Medical Care in Diabetes 2016, [place] Diabetes Association. Diabetes Care. 2016.39(Suppl 1). Results may be falsely elevated after the administration of Sulfapyridine. Results may be falsely depressed after the administration of Sulfasalazine. Performed By: #### 2 4321-2 ####[facility] LABORATORYCLIA [id number] [place] [address] [place] Potassium [Moles/Vol] Normal [facility] Comment on above: Order Comment: Elfego gilbert Type: BLOOD SPECIMENOrdering Facility: [facility] Address: [address] [place] [address] Result Comment: Unab le to assay due to interference from hemolysis. Suggest reorder as clinically indicated. &XA&notified alex 0802 Performed By: #### 2 4321-2 ####[facility] LABORATORYCLIA [id number] [place] [address] [place] Sodium [Moles/Vol] 139 mmol/L Normal 136-145 [facility] Comment on above: Order Comment: Speci men Type: BLOOD SPECIMENOrdering Facility: [facility] Address: [address] [place] [address] Performed By: #### 2 4321-2 ####[facility] LABORATORYCLIA [id number] [place] [id number] [place] Urea nitrogen [Mass/Vol] 25 mg/dL Normal 7- [facility] Comment on above: Order Comment: Speci men Type: BLOOD SPECIMENOrdering Facility: [facility] Address: [address] [place] [address] Performed By: #### 2 4321-2 ####[facility] LABORATORYCLIA [id number] [place] [id number] [place] CBC panel Auto (Bld)on 07-16 Erythrocyte distribution width (RBC) [Ratio] 25.4 % High 11.5-15.0 [facility] Comment on above: Order Comment: Speci men Type: BLOOD SPECIMENOrdering Facility: [facility] Address: [address] [place] [address] Performed By: #### 5 8410-2 ####[facility] LABORATORYCLIA [id number] [address] [place] Hematocrit (Bld) [Volume fraction] 33.4 % Low 39.0-51.0 [facility] Comment on above: Order Comment: Speci men Type: BLOOD SPECIMENOrdering Facility: [facility] Address: [address] [place] [address] Performed By: #### 5 8410-2 ####[facility] LABORATORYCLIA [id number] [place] [id number] [place] Hemoglobin (Bld) [Mass/Vol] 10.9 g/dL Low 13.0-17.0 [facility] Comment on above: Order Comment: Speci men Type: BLOOD SPECIMENOrdering Facility: [facility] Address: [address] [place] [address] Performed By: #### 5 8410-2 ####[facility] LABORATORYCLIA [id number] [address] [place] MCH (RBC) [Entitic mass] 36.1 pg High 26.0-34.0 [facility] Comment on above: Order Comment: Speci men Type: BLOOD SPECIMENOrdering Facility: [facility] Address: [address] [place] [address] Performed By: #### 5 8410-2 ####[facility] LABORATORYCLIA [id number] [place] [address] [place] MCHC (RBC) [Mass/Vol] 32.6 g/dL Normal 30.5-36.0 [facility] Comment on above: Order Comment: Speci men Type: BLOOD SPECIMENOrdering Facility: [facility] Address: [address] [place] [address] Performed By: #### 5 8410-2 ####[facility] LABORATORYCLIA [id number] [address] [place] MCV (RBC) [Entitic vol] 110.6 fL High 80.0-100.0 [facility] Comment on above: Order Comment: Speci men Type: BLOOD SPECIMENOrdering Facility: [facility] Address: [address] [place] [address] Performed By: #### 5 8410-2 ####[facility] LABORATORYCLIA [id number] [address] [place] Nucleated RBC (Bld) [#/Vol] 0.06 10*3/uL High <0.01 [facility] Comment on above: Order Comment: Speci men Type: BLOOD SPECIMENOrdering Facility: [facility] Address: [address] [place] [address] Performed By: #### 5 8410-2 ####[facility] LABORATORYCLIA [id number] [address] OF [place] Platelet mean volume (Bld) [Entitic vol] 11.5 fL Normal 9.0-12.7 [facility] Comment on above: Order Comment: Speci men Type: BLOOD SPECIMENOrdering Facility: [facility] Address: [address] [place] [address] Performed By: #### 5 8410-2 ####[facility] LABORATORYCLIA [id number] [place] [id number] [facility] Platelets (Bld) [#/Vol] 183 10*3/uL Normal 150-400 [facility] Comment on above: Order Comment: Speci men Type: BLOOD SPECIMENOrdering Facility: [facility] Address: [address] [place] [address] Performed By: #### 5 8410-2 ####[facility] LABORATORYCLIA [id number] [place] [id number] [place] [facility] [place] RBC (Bld) [#/Vol] 3.02 10*6/uL Low 4.20-6.00 [facility] Comment on above: Order Comment: Speci men Type: BLOOD SPECIMENOrdering Facility: [facility] Address: [address] [place] [address] Performed By: #### 5 8410-2 ####[facility] LABORATORYCLIA [id number] [place] [id number] [place] WBC (Bld) [#/Vol] 7.88 10*3/uL Normal 3.70-11.00 [facility] Comment on above: Order Comment: Speci men Type: BLOOD SPECIMENOrdering Facility: [facility] Address: [address] [place] [address] Performed By: #### 5 8410-2 ####[facility] LABORATORYCLIA [id number] [place] [id number] [facility] CONSULT PROGon 07-16-2025 CONSULT PROG HNO ID: [id number] Author: CODIE CASTELLANOS RPh Service: Pharmacy Author [...] pharmacy if there are questions. Codie Castellanos, [facility] Normal [facility] POTASSIUMon 07-16-2025 Potassium [Moles/Vol] 4.7 mmol/L Normal 3.5-5.1 [facility] Comment on above: Order Comment: Speci men Type: BLOOD SPECIMENOrdering Facility: [facility] Address: [address] [place] [address] Performed By: #### K 1 ####[facility] LABORATORYCLIA [id number] [place] [id number] [place] aPTT PPPon 07-16-2025 aPTT Coag (PPP) [Time] 52.4 s High 23.0-32.4 [facility] Comment on above: Order Comment: Speci men Type: BLOOD SPECIMENOrdering Facility: [facility] Address: [address] [place] [address] Performed By: #### 1 4979-9 ####[facility] LABORATORYCLIA [id number] [place] [address] [place] aPTT Coag (PPP) [Time] 75.7 s High 23.0-32.4 [facility] Comment on above: Order Comment: Speci men Type: BLOOD SPECIMENOrdering Facility: [facility] Address: [address] [place] [address] Performed By: #### 1 4979-9 ####[facility] LABORATORYCLIA [id number] [place] [id number] [facility] aPTT Coag (PPP) [Time] 46.4 s High 23.0-32.4 [facility] Comment on above: Order Comment: Speci men Type: BLOOD SPECIMENOrdering Facility: [facility] Address: [address] [place] [address] Performed By: #### 1 4979-9 ####[facility] LABORATORYCLIA [id number] [place] [id number] [place] Basic metabolic 2000 panelon 07-15-2025 Anion gap [Moles/Vol] 7 mmol/L Normal 5-16 [facility] Comment on above: Order Comment: Speci men Type: BLOOD SPECIMENOrdering Facility: [facility] Address: [address] [place] [address] Performed By: #### 2 4321-2 ####[facility] LABORATORYCLIA [id number] [place] [address] [place] Calcium [Mass/Vol] 8.8 mg/dL Normal 8.5-10.5 [facility] Comment on above: Order Comment: Speci men Type: BLOOD SPECIMENOrdering Facility: [facility] Address: [address] [place] [address] Performed By: #### 2 4321-2 ####[facility] LABORATORYCLIA [id number] [place] [address] [place] Chloride [Moles/Vol] 100 mmol/L Normal 98-107 [facility] Comment on above: Order Comment: Speci men Type: BLOOD SPECIMENOrdering Facility: [facility] Address: [address] [place] [address] Performed By: #### 2 4321-2 ####[facility] LABORATORYCLIA [id number] [place] [address] [place] CO2 [Moles/Vol] 33 mmol/L High 21-32 [facility] Comment on above: Order Comment: Speci men Type: BLOOD SPECIMENOrdering Facility: [facility] Address: [address] [place] [address] Performed By: #### 2 4321-2 ####[facility] LABORATORYCLIA [id number] [place] [address] [place] Creatinine [Mass/Vol] 1.28 mg/dL Normal 0.50-1.40 [facility] Comment on above: Order Comment: Speci men Type: BLOOD SPECIMENOrdering Facility: [facility] Address: [address] [place] [address] Result Comment: Kierra ents receiving either N-Acetylcysteine (NAC) or Metamizole prior to venipuncture, may have falsely depressed results. Performed By: #### 2 4321-2 ####[facility] LABORATORYCLIA [id number] [place] [address] [place] eGFRcr SerPlBld CKD-EPI 2020 53 mL/min/1.73m??? Low >=60 [facility] Comment on above: Order Comment: Specjason men Type: BLOOD SPECIMENOrdering Facility: [facility] Address: [address] [place] [address] Result Comment: Concepción mated Glomerular Filtration Rate [...] actual GFR. Performed By: #### 2 4321-2 ####[facility] LABORATORYCLIA [id number] [place] [address] [place] Glucose [Mass/Vol] 110 mg/dL High 70-100 [facility] Comment on above: Order Comment: Elfego gilbert Type: BLOOD SPECIMENOrdering Facility: [facility] Address: [address] [place] [address] Result Comment: The [place] Diabetes Association (ADA) provides guidance for cutoff [...] Standards of Medical Care in Diabetes 2016, [place] Diabetes Association. Diabetes Care. 2016.39(Suppl 1). Results may be falsely elevated after the administration of Sulfapyridine. Results may be falsely depressed after the administration of Sulfasalazine. Performed By: #### 2 4321-2 ####[facility] LABORATORYCLIA [id number] [address] STATES [place] [facility] Potassium [Moles/Vol] 3.9 mmol/L Normal 3.5-5.1 [facility] Comment on above: Order Comment: Speci men Type: BLOOD SPECIMENOrdering Facility: [facility] Address: [address] [place] [address] Performed By: #### 2 4321-2 ####[facility] LABORATORYCLIA [id number] [address] STATES OF [place] [facility] Sodium [Moles/Vol] 140 mmol/L Normal 136-145 [facility] Comment on above: Order Comment: Speci men Type: BLOOD SPECIMENOrdering Facility: [facility] Address: [address] [place] [address] Performed By: #### 2 4321-2 ####[facility] LABORATORYCLIA [id number] [address] STATES [facility] Urea nitrogen [Mass/Vol] 25 mg/dL Normal 7-26 [facility] Comment on above: Order Comment: Speci men Type: BLOOD SPECIMENOrdering Facility: [facility] Address: [address] [place] [address] Performed By: #### 2 4321-2 ####[facility] LABORATORYCLIA [id number] [address] CBC panel Auto (Bld)on 07-15 Erythrocyte distribution width (RBC) [Ratio] 25.3 % High 11.5-15.0 [facility] Comment on above: Order Comment: Speci men Type: BLOOD SPECIMENOrdering Facility: [facility] Address: [address] [place] [address] Performed By: #### 5 8410-2 ####[facility] LABORATORYCLIA [id number] [place] [address] [place] Hematocrit (Bld) [Volume fraction] 32.8 % Low 39.0-51.0 [facility] Comment on above: Order Comment: Speci men Type: BLOOD SPECIMENOrdering Facility: [facility] Address: [address] [place] [address] Performed By: #### 5 8410-2 ####[facility] LABORATORYCLIA [id number] [place] [id number] [place] Hemoglobin (Bld) [Mass/Vol] 10.4 g/dL Low 13.0-17.0 [facility] Comment on above: Order Comment: Speci men Type: BLOOD SPECIMENOrdering Facility: [facility] Address: [address] [place] [address] Performed By: #### 5 8410-2 ####[facility] LABORATORYCLIA [id number] [place] [address] [place] MCH (RBC) [Entitic mass] 35.3 pg High 26.0-34.0 [facility] Comment on above: Order Comment: Speci men Type: BLOOD SPECIMENOrdering Facility: [facility] Address: [address] [place] [address] Performed By: #### 5 8410-2 ####[facility] LABORATORYCLIA [id number] [place] [address] [place] MCHC (RBC) [Mass/Vol] 31.7 g/dL Normal 30.5-36.0 [facility] Comment on above: Order Comment: Speci men Type: BLOOD SPECIMENOrdering Facility: [facility] Address: [address] [place] [address] Performed By: #### 5 8410-2 ####[facility] LABORATORYCLIA [id number] [place] [address] [place] MCV (RBC) [Entitic vol] 111.2 fL High 80.0-100.0 [facility] Comment on above: Order Comment: Speci men Type: BLOOD SPECIMENOrdering Facility: [facility] Address: [address] [place] [address] Performed By: #### 5 8410-2 ####[facility] LABORATORYCLIA [id number] [place] [id number] [place] Nucleated RBC (Bld) [#/Vol] 0.03 10*3/uL High <0.01 [facility] Comment on above: Order Comment: Speci men Type: BLOOD SPECIMENOrdering Facility: [facility] Address: [address] [place] [address] Performed By: #### 5 8410-2 ####[facility] LABORATORYCLIA [id number] [place] [id number] [place] Platelet mean volume (Bld) [Entitic vol] 11.6 fL Normal 9.0-12.7 [facility] Comment on above: Order Comment: Speci men Type: BLOOD SPECIMENOrdering Facility: [facility] Address: [address] [place] [address] Performed By: #### 5 8410-2 ####[facility] LABORATORYCLIA [id number] [place] [address] [place] Platelets (Bld) [#/Vol] 172 10*3/uL Normal 150-400 [facility] Comment on above: Order Comment: Speci men Type: BLOOD SPECIMENOrdering Facility: [facility] Address: [address] [place] [address] Performed By: #### 5 8410-2 ####[facility] LABORATORYCLIA [id number] [place] [address] [place] RBC (Bld) [#/Vol] 2.95 10*6/uL Low 4.20-6.00 [facility] Comment on above: Order Comment: Speci men Type: BLOOD SPECIMENOrdering Facility: [facility] Address: [address] [place] [address] Performed By: #### 5 8410-2 ####[facility] LABORATORYCLIA [id number] [place] [id number] [place] WBC (Bld) [#/Vol] 9.24 10*3/uL Normal 3.70-11.00 [facility] Comment on above: Order Comment: Speci men Type: BLOOD SPECIMENOrdering Facility: [facility] Address: [address], [place] [address] Performed By: #### 5 8410-2 ####[facility] LABORATORYCLIA [id number] [place] [address] [place] CONSULT PROGon 07-15-2025 CONSULT PROG HNO ID: [id number] Author: ZORNA ORDONEZ APRN.CNP Service: Cardiovascular Medicine Author Type: [...] present. Mental Status: He is alert. Normal [facility] aPTT PPPon 07-15-2025 aPTT Coag (PPP) [Time] 43.5 s High 23.0-32.4 [facility] Comment on above: Order Comment: Speci men Type: BLOOD SPECIMENOrdering Facility: [facility] Address: [address] [place] [address] Performed By: #### 1 4979-9 ####[facility] LABORATORYCLIA [id number] [place] [id number] [facility] aPTT Coag (PPP) [Time] 55.5 s High 23.0-32.4 [facility] Comment on above: Order Comment: Speci men Type: BLOOD SPECIMENOrdering Facility: [facility] Address: [address] [place] [address] Performed By: #### 1 4979-9 ####[facility] LABORATORYCLIA [id number] [place] [id number] [place] [facility] aPTT Coag (PPP) [Time] 69.7 s High 23.0-32.4 [facility] Comment on above: Order Comment: Speci men Type: BLOOD SPECIMENOrdering Facility: [facility] Address: [address] [place] [address] Performed By: #### 1 4979-9 ####[facility] LABORATORYCLIA [id number] [place] [id number] [place] Basic metabolic 2000 panelon 07-14-2025 Anion gap [Moles/Vol] 10 mmol/L Normal 5-16 [facility] Comment on above: Order Comment: Speci men Type: BLOOD SPECIMENOrdering Facility: [facility] Address: [address] [place] [address] Performed By: #### 2 4321-2, LIPNF, 49590-9, 3016-3, HSTROP ####[facility] LABORATORYCLIA [id number] [place] [id number] [place] Calcium [Mass/Vol] 8.9 mg/dL Normal 8.5-10.5 [facility] Comment on above: Order Comment: Speci men Type: BLOOD SPECIMENOrdering Facility: [facility] Address: [address] [place] [address] Performed By: #### 2 4321-2, LIPNF, , 3, HSTROP ####[facility] LABORATORYCLIA [id number] [place] [id number] [place] Chloride [Moles/Vol] 98 mmol/L Normal 98-107 [facility] Comment on above: Order Comment: Speci men Type: BLOOD SPECIMENOrdering Facility: [facility] Address: [address] [place] [address] Performed By: #### 2 4321-2, LIPNF, , 3, HSTROP ####[facility] LABORATORYCLIA [id number] [place] [id number] [place] CO2 [Moles/Vol] 31 mmol/L Normal 21-32 [facility] Comment on above: Order Comment: Speci men Type: BLOOD SPECIMENOrdering Facility: [facility] Address: [address] [place] [address] Performed By: #### 2 4321-2, LIPNF, , 3, HSTROP ####[facility] LABORATORYCLIA [id number] [place] [id number] [place] Creatinine [Mass/Vol] 1.18 mg/dL Normal 0.50-1.40 [facility] Comment on above: Order Comment: Speci men Type: BLOOD SPECIMENOrdering Facility: [facility] Address: [address] [place], [place] [address] Result Comment: Kierra ents receiving either N-Acetylcysteine (NAC) or Metamizole prior to venipuncture, may have falsely depressed results. Performed By: #### 2 4321-2, LIPNF, , 3, HSTROP ####[facility] LABORATORYCLIA [id number] [place] [id number] [place] eGFRcr SerPlBld CKD-EPI 2021 59 mL/min/1.73m??? Low >=60 [facility] Comment on above: Order Comment: Elfego gilbert Type: BLOOD SPECIMENOrdering Facility: [facility] Address: [address] [place] [address] Result Comment: Concepción mated Glomerular Filtration Rate [...] GFR. Performed By: #### 2 4321-2, LIPNF, 86398-7, 6-3, HSTROP ####[facility] LABORATORYCLIA [id number] [place] [address] [place] Glucose [Mass/Vol] 108 mg/dL High 70-100 [facility] Comment on above: Order Comment: Elfego gilbert Type: BLOOD SPECIMENOrdering Facility: [facility] Address: [address] [place] [address] Result Comment: The Citizen Of [place] Diabetes Association (ADA) provides guidance for cutoff [...] Standards of Medical Care in Diabetes 2016, Citizen Of [place] Diabetes Association. Diabetes Care. 2016.39(Suppl 1). Results may be falsely elevated after the administration of Sulfapyridine. Results may be falsely depressed after the administration of Sulfasalazine. Performed By: #### 2 4321-2, LIPNF, 57852-4, 6-3, HSTROP ####[facility] LABORATORYCLIA [id number] [place] [id number] [place] Potassium [Moles/Vol] 4.4 mmol/L Normal 3.5-5.1 [facility] Comment on above: Order Comment: Speci men Type: BLOOD SPECIMENOrdering Facility: [facility] Address: [address] [place] [address] Performed By: #### 2 4321-2, LIPNF, 58995-2, 3016-3, HSTROP ####[facility] LABORATORYCLIA [id number] [place] [address] [place] Sodium [Moles/Vol] 139 mmol/L Normal 136-145 [facility] Comment on above: Order Comment: Speci men Type: BLOOD SPECIMENOrdering Facility: [facility] Address: [address] [place] [address] Performed By: #### 2 4321-2, LIPNF, 09313-7, 3016-3, HSTROP ####[facility] LABORATORYCLIA [id number] [place] [id number] [place] Urea nitrogen [Mass/Vol] 26 mg/dL Normal 7-26 [facility] Comment on above: Order Comment: Speci men Type: BLOOD SPECIMENOrdering Facility: [facility] Address: [address] [place] [address] Performed By: #### 2 4321-2, LIPNF, 03737-4, 3016-3, HSTROP ####[facility] LABORATORYCLIA [id number] [place] [id number] [place] CBC panel Auto (Bld)on 07-14 Erythrocyte distribution width (RBC) [Ratio] 25.2 % High 11.5-15.0 [facility] Comment on above: Order Comment: Speci men Type: BLOOD SPECIMENOrdering Facility: [facility] Address: [address] [place] [address] Performed By: #### 5 8410-2 ####[facility] LABORATORYCLIA [id number] [place] [id number] [place] Hematocrit (Bld) [Volume fraction] 32.4 % Low 39.0-51.0 [facility] Comment on above: Order Comment: Speci men Type: BLOOD SPECIMENOrdering Facility: [facility] Address: [address] [place] [address] Performed By: #### 5 8410-2 ####[facility] LABORATORYCLIA [id number] [place] [address] [place] Hemoglobin (Bld) [Mass/Vol] 10.4 g/dL Low 13.0-17.0 [facility] Comment on above: Order Comment: Speci men Type: BLOOD SPECIMENOrdering Facility: [facility] Address: [address] [place] [address] Performed By: #### 5 8410-2 ####[facility] LABORATORYCLIA [id number] [place] [address] [place] MCH (RBC) [Entitic mass] 36.0 pg High 26.0-34.0 [facility] Comment on above: Order Comment: Speci men Type: BLOOD SPECIMENOrdering Facility: [facility] Address: [address] [place] [address] Performed By: #### 5 8410-2 ####[facility] LABORATORYCLIA [id number] [address] [place] MCHC (RBC) [Mass/Vol] 32.1 g/dL Normal 30.5-36.0 [facility] Comment on above: Order Comment: Speci men Type: BLOOD SPECIMENOrdering Facility: [facility] Address: [address] [place] [address] Performed By: #### 5 8410-2 ####[facility] LABORATORYCLIA [id number] [place] [address] [place] MCV (RBC) [Entitic vol] 112.1 fL High 80.0-100.0 [facility] Comment on above: Order Comment: Speci men Type: BLOOD SPECIMENOrdering Facility: [facility] Address: [address] [place] [address] Performed By: #### 5 8410-2 ####[facility] LABORATORYCLIA [id number] [place] [id number] [place] Nucleated RBC (Bld) [#/Vol] 0.04 10*3/uL High <0.01 [facility] Comment on above: Order Comment: Speci men Type: BLOOD SPECIMENOrdering Facility: [facility] Address: [address] [place] [address] Performed By: #### 5 8410-2 ####[facility] LABORATORYCLIA [id number] [place] [address] [place] Platelet mean volume (Bld) [Entitic vol] 11.5 fL Normal 9.0-12.7 [facility] Comment on above: Order Comment: Speci men Type: BLOOD SPECIMENOrdering Facility: [facility] Address: [address] [place] [address] Performed By: #### 5 8410-2 ####[facility] LABORATORYCLIA [id number] [place] [address] [place] Platelets (Bld) [#/Vol] 173 10*3/uL Normal 150-400 [facility] Comment on above: Order Comment: Speci men Type: BLOOD SPECIMENOrdering Facility: [facility] Address: [address] [place] [address] Performed By: #### 5 8410-2 ####[facility] LABORATORYCLIA [id number] [place] [address] [place] RBC (Bld) [#/Vol] 2.89 10*6/uL Low 4.20-6.00 [facility] Comment on above: Order Comment: Speci men Type: BLOOD SPECIMENOrdering Facility: [facility] Address: [address] [place] [address] Performed By: #### 5 8410-2 ####[facility] LABORATORYCLIA [id number] [place] [id number] [place] WBC (Bld) [#/Vol] 12.42 10*3/uL High 3.70-11.00 [facility] Comment on above: Order Comment: Speci men Type: BLOOD SPECIMENOrdering Facility: [facility] Address: [address] [place] [address] Performed By: #### 5 8410-2 ####[facility] LABORATORYCLIA [id number] [address] [place] Erythrocyte distribution width (RBC) [Ratio] 25.6 % High 11.5-15.0 [facility] Comment on above: Order Comment: Speci men Type: BLOOD SPECIMENOrdering Facility: [facility] Address: [address] [place] [address] Performed By: #### 5 8410-2 ####[facility] LABORATORYCLIA [id number] [place] [address] [place] Hematocrit (Bld) [Volume fraction] 32.8 % Low 39.0-51.0 [facility] Comment on above: Order Comment: Speci men Type: BLOOD SPECIMENOrdering Facility: [facility] Address: [address] [place] [address] Performed By: #### 5 8410-2 ####[facility] LABORATORYCLIA [id number] [place] [address] [place] Hemoglobin (Bld) [Mass/Vol] 10.7 g/dL Low 13.0-17.0 [facility] Comment on above: Order Comment: Speci men Type: BLOOD SPECIMENOrdering Facility: [facility] Address: [address] [place] [address] Performed By: #### 5 8410-2 ####[facility] LABORATORYCLIA [id number] [place] [address] [place] MCH (RBC) [Entitic mass] 36.1 pg High 26.0-34.0 [facility] Comment on above: Order Comment: Speci men Type: BLOOD SPECIMENOrdering Facility: [facility] Address: [address] [place] [address] Performed By: #### 5 8410-2 ####[facility] LABORATORYCLIA [id number] [address] [place] MCHC (RBC) [Mass/Vol] 32.6 g/dL Normal 30.5-36.0 [facility] Comment on above: Order Comment: Speci men Type: BLOOD SPECIMENOrdering Facility: [facility] Address: [address] [place] [address] Performed By: #### 5 8410-2 ####[facility] LABORATORYCLIA [id number] [place] [address] [place] MCV (RBC) [Entitic vol] 110.8 fL High 80.0-100.0 [facility] Comment on above: Order Comment: Speci men Type: BLOOD SPECIMENOrdering Facility: [facility] Address: [address] [place] [address] Performed By: #### 5 8410-2 ####[facility] LABORATORYCLIA [id number] [address] [place] Nucleated RBC (Bld) [#/Vol] 0.04 10*3/uL High <0.01 [facility] Comment on above: Order Comment: Speci men Type: BLOOD SPECIMENOrdering Facility: [facility] Address: [address] [place] [address] Performed By: #### 5 8410-2 ####[facility] LABORATORYCLIA [id number] [place] [address] [place] Platelet mean volume (Bld) [Entitic vol] 11.3 fL Normal 9.0-12.7 [facility] Comment on above: Order Comment: Speci men Type: BLOOD SPECIMENOrdering Facility: [facility] Address: [address] [place] [address] Performed By: #### 5 8410-2 ####[facility] LABORATORYCLIA [id number] [place] [address] [place] Platelets (Bld) [#/Vol] 181 10*3/uL Normal 150-400 [facility] Comment on above: Order Comment: Speci men Type: BLOOD SPECIMENOrdering Facility: [facility] Address: [address] [place] [address] Performed By: #### 5 8410-2 ####[facility] LABORATORYCLIA [id number] [place] [address] [facility] RBC (Bld) [#/Vol] 2.96 10*6/uL Low 4.20-6.00 [facility] Comment on above: Order Comment: Speci men Type: BLOOD SPECIMENOrdering Facility: [facility] Address: [address] [place] [address] Performed By: #### 5 8410-2 ####[facility] LABORATORYCLIA [id number] [place] [address] [facility] WBC (Bld) [#/Vol] 11.76 10*3/uL High 3.70-11.00 [facility] Comment on above: Order Comment: Speci men Type: BLOOD SPECIMENOrdering Facility: [facility] Address: [address] [place], [place] [address] Performed By: #### 5 8410-2 ####[facility] LABORATORYCLIA [id number] [place] [id number] [facility] CNPTOUTREACHon 07-14-2025 CNPTOUTREACH Normal [facility] CONSULTon 07-14-2025 CONSULT HNO ID: [id number] Author: LING THOMPSON MD Service: Cardiovascular Medicine Author Type: Physician Type: Consults Filed: 07/14/2025 12:54 Note Text: CARDIOLOGY CONSULT CONSULTING PHYSICIAN: Armida Parker MD PCP: Ronaldo Pleitez MD ATTENDING: Luis Lan MD STAFF [employer] MANAGER: Dr. 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 CVA (cerebral vascular accident) ([facility]) 08/22/2022 Diverticulosis H/O echocardiogram 09/16/2022 EF 68?5 %, mod concentric LVH, mod TR, mild-mod MR with mod MAC History of anemia History of CVA (cerebrovascular accident) 08/22/2022 Pontine infarction, R>L History of stress test 10/12/2024 EF 43%, mild ischemia involving the apex 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 [facility] CONSULT PROGon 07-14-2025 CONSULT PROG HNO ID: [id number] Author: LING THOMPSON MD Service: Cardiovascular Medicine [...] not given the patient's age of 89. [facility] CONSULT PROG HNO ID: [id number] Author: LING THOMPSON MD Service: Cardiovascular Medicine Author Type: Physician Type: Consult Progress Note Filed: 07/14/2025 12:56 Note Text: Moderate to severe TR with moderate pulmonary hypertension-continue diuretics for now. [facility] ECHOon 07-14-2025 Echocardiography Echocardiography Rep ort: Transthoracic Echo [facility] Date of service: 07/14/2025 9:05:21 AM Ordering physician: ARMIDA PARKER Exam indication: Re-evaluation of known heart failure with a change in clinical status without change in med/diet Technologist: Abran Joy [facility] Interpreting physician: Rafael Monaco MD PATIENT: Name: [...] noted in the right atrium. MITRAL VALVE [place] mitral valve. There is moderate mitral annular [...] deceleration time is 116 msec. TRICUSPID VALVE [place] tricuspid valve. There is no tricuspid valve [...] decreased. EF (more content not included)... Normal [facility] HIGH SENSITIVITY TROPONIN Io n 07-14-2025 Tropinin I.cardiac panel High sensitivity method 64.8 pg/mL High 0.0-54.0 [facility] Comment on above: Order Comment: Speci men Type: BLOOD SPECIMENOrdering Facility: [facility] Address: [address] [place] [address] Result Comment: CRIT ICAL Performed By: #### H STROP ####[facility] LABORATORYCLIA [id number] [facility] [employer] [place] [address] [place] Tropinin I.cardiac panel High sensitivity method 90.6 pg/mL High 0.0-54.0 [facility] Comment on above: Order Comment: Julijason gilbert Type: BLOOD SPECIMENOrdering Facility: [facility] Address: [address] [place] [address] Result Comment: CRIT ICAL Performed By: #### 2 4321-2, LIPNF, 72657-0, 3016-3, HSTROP ####[facility] LABORATORYCLIA [id number] [place] [id number] [facility] [place] HbA1c (Bld)on 07-14-2025 Average glucose Estimated from glycated hemoglobin (Bld) [Mass/Vol] 97 mg/dL Normal [facility] Comment on above: Order Comment: Elfego vladimir Type: BLOOD SPECIMENOrdering Facility: [facility] Address: [address] [place] [address] Result Comment: eAG: (Estimated average glucose) is a calculated value from HgbA1c and is insurance healthcare representative of the average blood glucose level in the last 2-3 month period. Performed By: #### 5 5454-3 ####[facility] LABCLIA [id number] [address] [place] [facility] HbA1c (Bld) [Mass fraction] 5.0 % Normal 4.3-5.6 [facility] Comment on above: Order Comment: Elfego gilbert Type: BLOOD SPECIMENOrdering Facility: [facility] Address: [address] [place] [address] Result Comment: Amer [place] Diabetes Association guidelines indicate that patients with HgbA1c in the range 5.7-6.4% are at increased risk for development of diabetes, and intervention by lifestyle modification may be beneficial. HgbA1c greater or equal to 6.5% is considered diagnostic of diabetes. Performed By: #### 5 5454-3 ####[facility] LABCLIA [id number] [place] [id number] [place] LIPID PANEL, NONFASTINGon Cholesterol [Mass/Vol] 88 mg/dL Normal 0-199 [facility] Comment on above: Order Comment: Speci men Type: BLOOD SPECIMENOrdering Facility: [facility] Address: [address] [place] [address] Result Comment: <200 mg/dL, Desirable 200-239 mg/dL, Borderline high >239 mg/dL, High Performed By: #### 2 4321-2, LIPNF, 80967-3, 6-3, HSTROP ####[facility] LABORATORYCLIA [id number] [place] [id number] [facility] [place] HDL CHOLESTEROL, NF 49 mg/dL Normal >40 [facility] Comment on above: Order Comment: Speci men Type: BLOOD SPECIMENOrdering Facility: [facility] Address: [address] [place] [address] Result Comment: 40-5 9 mg/dL, Acceptable >59 mg/dL, High: Negative risk factor for coronary heart disease <40 mg/dL, Low: Positive risk factor for coronary heart disease Performed By: #### 2 4321-2, LIPNF, , 3015-3, HSTROP ####[facility] LABORATORYCLIA [id number] [address] LDL CHOLESTEROL CALCULATED, NF 28 mg/dL Normal <100 [facility] Comment on above: Order Comment: Speci men Type: BLOOD SPECIMENOrdering Facility: [facility] Address: [address] [place] [address] Result Comment: <100 mg/dL, Optimal 100-129 mg/dL, Near optimal/above optimal 130-159 mg/dL, Borderline high 160-189 mg/dL, High >189 mg/dL, Very high Secondary prevention optimal LDL Cholesterol levels are recommended to be <70 mg/dL LDL cholesterol is calculated using the Han-NIH equation. Performed By: #### 2 4321-2, LIPNF, 56650-6, 3015-3, HSTROP ####[facility] LABORATORYCLIA [id number] [place] [id number] [facility] [place] LDL/HDL RATIO, NF 0.57 mg/dL Normal <2.54 [facility] Comment on above: Order Comment: Speci men Type: BLOOD SPECIMENOrdering Facility: [facility] Address: [address] [place] [id number] Result Comment: Katie barrientos: 1. National Cholesterol Education Program ATP III Guideline At-A-Glance Quick Desk Reference: National Heart, Lung, and Blood [place]. National Institutes of Health. 2001: NIH Publication No. 01-3305. 2. An International Atherosclerosis Society position paper: global recommendations for the management of dyslipidemia: executive summary, Atherosclerosis. 2014: 232(2):410-413. Performed By: #### 2 4321-2, LIPNF, 81211-7, 3016-3, HSTROP ####[facility] LABORATORYCLIA [id number] [address] [place] NON HDL CHOL, NF 39 mg/dL Normal <130 [facility] Comment on above: Order Comment: Speci men Type: BLOOD SPECIMENOrdering Facility: [facility] Address: [address] [place] [address] Result Comment: <130 mg/dL, Optimal 130-159 mg/dL, Near optimal/above optimal 160-189 mg/dL, Borderline high 190-219 mg/dL, High >219 mg/dL, Very high Secondary prevention optimal non HDL Cholesterol levels are recommended to be <100 mg/dL Performed By: #### 2 4321-2, LIPNF, 72691-9, 3016-3, HSTROP ####[facility] LABORATORYCLIA [id number] [place] [address] [place] T CHOL/HDL RATIO NF 1.80 mg/dL Normal <5.10 [facility] Comment on above: Order Comment: Speci men Type: BLOOD SPECIMENOrdering Facility: [facility] Address: [address] [place] [id number] Performed By: #### 2 4321-2, LIPNF, 34739-5, 3016-3, HSTROP ####[facility] LABORATORYCLIA [id number] [place] [id number] [place] TRIGLYCERIDES, NF 37 mg/dL Normal 30-149 [facility] Comment on above: Order Comment: Speci men Type: BLOOD SPECIMENOrdering Facility: [facility] Address: [address] [place] [address] Result Comment: <150 mg/dL, Normal 150-199 mg/dL, Borderline high 200-499 mg/dL, High >499 mg/dL, Very high Performed By: #### 2 4321-2, LIPNF, 86236-0, 3016-3, HSTROP ####[facility] LABORATORYCLIA [id number] [place] [id number] [place] VLDL CHOLESTEROL, NF 5 mg/dL Normal <30 [facility] Comment on above: Order Comment: Julii vladimir Type: BLOOD SPECIMENOrdering Facility: [facility] Address: [address] [place] [address] Performed By: #### 2 4321-2, LIPNF, 14667-1, 6-3, HSTROP ####[facility] LABORATORYCLIA [id number] [place] [id number] [place] Magnesium SerPl-mCncon 07-14 Magnesium [Mass/Vol] 2.2 mg/dL Normal 1.6-2.6 [facility] Comment on above: Order Comment: Elfego gilbert Type: BLOOD SPECIMENOrdering Facility: [facility] Address: [address] [place] [address] Performed By: #### 2 4321-2, LIPNF, 51256-5, 6-3, HSTROP ####[facility] LABORATORYCLIA [id number] [place] [id number] [place] PT panel Coag (PPP)on 2024 INR Coag (PPP) [Relative time] 1.3 {INR} Normal 0.9-1.3 [facility] Comment on above: Order Comment: Julii vladimir Type: BLOOD SPECIMENOrdering Facility: [facility] Address: [address] [place] [address] Result Comment: Tanna min K Antagonist (VKA) Therapeutic Range: INR 2 to 3 (Target INR of 2.5) Note: For patients treated with VKA drugs, such as warfarin, the Citizen Of [place] [employer] 2012 Guideline recommends [...] 70: 252-289 Performed By: #### 3 4528-0, 79110-1 ####[facility] LABORATORYCLIA [id number] [place] [address] [place] PT Coag (PPP) [Time] 14.3 s High 9.7-13.0 [facility] Comment on above: Order Comment: Speci men Type: BLOOD SPECIMENOrdering Facility: [facility] Address: [address] [place] [address] Performed By: #### 3 4528-0, 65623-8 ####[facility] LABORATORYCLIA [id number] [place] [address] [place] STAPHYLOCOCCUS AUREUS AND MR SA SCREEN, PCR, NASALon 07-14-2025 S. aureus and MRSA panel OLIVER+probe (Nose) Methicillin-RESISTANT Staphylococcus aureus (MRSA) Detected Abnormal Not Detected [facility] Comment on above: Order Comment: Speci men Type: SWABOrdering Facility: [facility] Address: [address] [place] [address] Performed By: #### S APCR ####[facility] LABORATORYCLIA [id number] [place] [address] [place] TSH SerPl-aCncon 07-14-2025 TSH Qn 9.368 m[IU]/L High 0.358-3.74 0 [facility] Comment on above: Order Comment: Speci men Type: BLOOD SPECIMENOrdering Facility: [facility] Address: [address] [place] [address] Result Comment: 3rd generation ultra sensitive TSH. Performed By: #### 2 4321-2, LIPNF, 33566-2, 3016-3, HSTROP ####[facility] LABORATORYCLIA [id number] [place] [address] [place] US ARM VEIN DVT UNL VAS LABo n 07-14-2025 US ARM VEIN DVT UNL VAS LAB Non-Invasive Vascular Laboratory [facility] Upper Extremity Venous Duplex Unilateral - [...] physician: Jesus Manuel Fairchild MD Final CC [employer] Medical Image : [id number] See Link below for Image Normal [facility] Urinalysis complete panel (U )on 07-14-2025 Bacteria LM.HPF (Urine sed) [#/Area] None Seen Normal None Seen [facility] Comment on above: Order Comment: Speci men Type: URINE SPECIMENOrdering Facility: [facility] Address: [address] [place] [address] Performed By: #### 2 4356-8 ####[facility] LABORATORYCLIA [id number] [place] [address] [place] Bilirubin Ql (U) Negative Normal Negative [facility] Comment on above: Order Comment: Speci men Type: URINE SPECIMENOrdering Facility: [facility] Address: [address] [place] [address] Performed By: #### 2 4356-8 ####[facility] LABORATORYCLIA [id number] [place] [address] [place] Clarity (Unsp spec) Clear Normal Clear [facility] Comment on above: Order Comment: Speci men Type: URINE SPECIMENOrdering Facility: [facility] Address: [address] [place] [address] Performed By: #### 2 4356-8 ####[facility] LABORATORYCLIA [id number] [place] [address] [place] Color (U) Yellow Normal Yellow [facility] Comment on above: Order Comment: Speci men Type: URINE SPECIMENOrdering Facility: [facility] Address: [address] [place] [address] Performed By: #### 2 4356-8 ####[facility] LABORATORYCLIA [id number] [address] [place] Epithelial cells LM.HPF (Urine sed) [#/Area] Few Normal [facility] Comment on above: Order Comment: Speci men Type: URINE SPECIMENOrdering Facility: [facility] Address: [address] [place] [address] Performed By: #### 2 4356-8 ####[facility] LABORATORYCLIA [id number] [address] [place] Glucose Test strip (U) [Mass/Vol] Negative Normal Negative [facility] Comment on above: Order Comment: Speci men Type: URINE SPECIMENOrdering Facility: [facility] Address: [address] [place] [address] Performed By: #### 2 4356-8 ####[facility] LABORATORYCLIA [id number] [address] [place] Hemoglobin Ql (U) Negative Normal Negative [facility] Comment on above: Order Comment: Speci men Type: URINE SPECIMENOrdering Facility: [facility] Address: [address] [place] [address] Performed By: #### 2 4356-8 ####[facility] LABORATORYCLIA [id number] [place] [address] [place] Hyaline casts (Urine sed) [#/Area] 1-3 /LPF Abnormal 0 /LPF [facility] Comment on above: Order Comment: Speci men Type: URINE SPECIMENOrdering Facility: [facility] Address: [address] [place] [address] Performed By: #### 2 4356-8 ####[facility] LABORATORYCLIA [id number] [address] [place] Ketones Ql (U) Negative Normal Negative [facility] Comment on above: Order Comment: Speci men Type: URINE SPECIMENOrdering Facility: [facility] Address: [address] [place] [address] Performed By: #### 2 4356-8 ####[facility] LABORATORYCLIA [id number] [address] Leukocyte esterase Test strip Ql (U) Negative Normal Negative [facility] Comment on above: Order Comment: Speci men Type: URINE SPECIMENOrdering Facility: [facility] Address: [address] [place] [address] Performed By: #### 2 4356-8 ####[facility] LABORATORYCLIA [id number] [place] [address] [place] Nitrite Ql (U) Negative Normal Negative [facility] Comment on above: Order Comment: Speci men Type: URINE SPECIMENOrdering Facility: [facility] Address: [address] [place] [address] Performed By: #### 2 4356-8 ####[facility] LABORATORYCLIA [id number] [address] [place] pH (U) 6.0 [pH] Normal 5.0-8.0 [facility] Comment on above: Order Comment: Speci men Type: URINE SPECIMENOrdering Facility: [facility] Address: [address] [place] [address] Performed By: #### 2 4356-8 ####[facility] LABORATORYCLIA [id number] [address] [place] Protein (U) [Mass/Vol] Negative Normal Negative [facility] Comment on above: Order Comment: Speci men Type: URINE SPECIMENOrdering Facility: [facility] Address: [address] [place] [address] Performed By: #### 2 4356-8 ####[facility] LABORATORYCLIA [id number] [place] [address] [place] RBC LM.HPF (Urine sed) [#/Area] 0-3 /HPF Normal 0-3 /HPF [facility] Comment on above: Order Comment: Speci men Type: URINE SPECIMENOrdering Facility: [facility] Address: [address] [place] [address] Performed By: #### 2 4356-8 ####[facility] LABORATORYCLIA [id number] [address] [place] Specific gravity (U) [Rel density] 1.011 Normal 1.005-1.03 0 [facility] Comment on above: Order Comment: Speci men Type: URINE SPECIMENOrdering Facility: [facility] Address: [address] [place] [address] Performed By: #### 2 4356-8 ####[facility] LABORATORYCLIA [id number] [address] Urobilinogen Ql (U) Negative Normal Negative [facility] Comment on above: Order Comment: Speci men Type: URINE SPECIMENOrdering Facility: [facility] Address: [address] [place] [address] Performed By: #### 2 4356-8 ####[facility] LABORATORYCLIA [id number] [address] [place] WBC LM.HPF (Urine sed) [#/Area] 0-5 /HPF Normal 0-5 /HPF [facility] Comment on above: Order Comment: Speci men Type: URINE SPECIMENOrdering Facility: [facility] Address: [address] [place] [address] Performed By: #### 2 4356-8 ####[facility] LABORATORYCLIA [id number] [address] [place] aPTT PPPon 07-14-2025 aPTT Coag (PPP) [Time] 56.1 s High 23.0-32.4 [facility] Comment on above: Order Comment: Speci men Type: BLOOD SPECIMENOrdering Facility: [facility] Address: [address] [place] [address] Performed By: #### 1 4979-9 ####[facility] LABORATORYCLIA [id number] [address] aPTT Coag (PPP) [Time] 37.7 s High 23.0-32.4 [facility] Comment on above: Order Comment: Speci men Type: BLOOD SPECIMENOrdering Facility: [facility] Address: [address] [place] [address] Performed By: #### 3 4528-0, 90957-3 ####[facility] LABORATORYCLIA [id number] [address] STATES [place] [facility] Bacteria Bld Culton 07-13-20 25 Bacteria identified Cx Nom (Bld) CULTURE, BLOOD: No growth 5 days Normal [facility] Comment on above: Performed By: #### 6 00-7 ####[facility] LABORATORYCLIA [id number] [address] Bacteria identified Cx Nom (Bld) CULTURE, BLOOD: No growth 5 days Normal [facility] Comment on above: Performed By: #### 6 00-7 ####[facility] LABORATORYCLIA [id number] [address] [place] CBC W Auto Differential pane l (Bld)on 07-13-2025 Basophils (Bld) [#/Vol] 0.03 10*3/uL Normal <0.11 [facility] Comment on above: Order Comment: Speci men Type: BLOOD SPECIMENOrdering Facility: [facility] Address: [address] [place] [address] Performed By: #### 5 7021-8 ####[facility] LABORATORYCLIA [id number] [address] [place] Basophils/100 WBC (Bld) 0.2 % Normal [facility] Comment on above: Order Comment: Speci men Type: BLOOD SPECIMENOrdering Facility: [facility] Address: [address] [place] [address] Performed By: #### 5 7021-8 ####[facility] LABORATORYCLIA [id number] [address] STATES OF [place] [facility] Differential cell count method Nom (Bld) Auto Normal [facility] Comment on above: Order Comment: Speci men Type: BLOOD SPECIMENOrdering Facility: [facility] Address: [address] [place] [address] Performed By: #### 5 7021-8 ####[facility] LABORATORYCLIA [id number] [place] [address] [place] Eosinophils (Bld) [#/Vol] 10*3/uL Normal <0.46 [facility] Comment on above: Order Comment: Speci men Type: BLOOD SPECIMENOrdering Facility: [facility] Address: [address] [place] [address] Performed By: #### 5 7021-8 ####[facility] LABORATORYCLIA [id number] [place] [address] [place] Eosinophils/100 WBC (Bld) 0.1 % Normal [facility] Comment on above: Order Comment: Speci men Type: BLOOD SPECIMENOrdering Facility: [facility] Address: [address] [place] [address] Performed By: #### 5 7021-8 ####[facility] LABORATORYCLIA [id number] [place] [address] [place] Erythrocyte distribution width (RBC) [Ratio] 26.2 % High 11.5-15.0 [facility] Comment on above: Order Comment: Speci men Type: BLOOD SPECIMENOrdering Facility: [facility] Address: [address] [place] [address] Performed By: #### 5 7021-8 ####[facility] LABORATORYCLIA [id number] [place] [address] [place] Hematocrit (Bld) [Volume fraction] 34.5 % Low 39.0-51.0 [facility] Comment on above: Order Comment: Speci men Type: BLOOD SPECIMENOrdering Facility: [facility] Address: [address] [place] [address] Performed By: #### 5 7021-8 ####[facility] LABORATORYCLIA [id number] [place] [address] [place] Hemoglobin (Bld) [Mass/Vol] 11.3 g/dL Low 13.0-17.0 [facility] Comment on above: Order Comment: Speci men Type: BLOOD SPECIMENOrdering Facility: [facility] Address: [address] [place] [address] Performed By: #### 5 7021-8 ####[facility] LABORATORYCLIA [id number] [address] [place] Immature granulocytes (Bld) [#/Vol] 0.10 10*3/uL High <0.10 [facility] Comment on above: Order Comment: Speci men Type: BLOOD SPECIMENOrdering Facility: [facility] Address: [address] [place] [address] Performed By: #### 5 7021-8 ####[facility] LABORATORYCLIA [id number] [address] Immature granulocytes/100 WBC (Bld) 0.6 % Normal [facility] Comment on above: Order Comment: Speci men Type: BLOOD SPECIMENOrdering Facility: [facility] Address: [address] [place] [address] Performed By: #### 5 7021-8 ####[facility] LABORATORYCLIA [id number] [address] [place] Lymphocytes (Bld) [#/Vol] 0.66 10*3/uL Low 1.00-4.00 [facility] Comment on above: Order Comment: Speci men Type: BLOOD SPECIMENOrdering Facility: [facility] Address: [address] [place] [address] Performed By: #### 5 7021-8 ####[facility] LABORATORYCLIA [id number] [address] [place] Lymphocytes/100 WBC (Bld) 3.9 % Normal [facility] Comment on above: Order Comment: Speci men Type: BLOOD SPECIMENOrdering Facility: [facility] Address: [address] [place] [address] Performed By: #### 5 7021-8 ####[facility] LABORATORYCLIA [id number] [place] [address] [place] MCH (RBC) [Entitic mass] 37.2 pg High 26.0-34.0 [facility] Comment on above: Order Comment: Speci men Type: BLOOD SPECIMENOrdering Facility: [facility] Address: [address] [place] [address] Performed By: #### 5 7021-8 ####[facility] LABORATORYCLIA [id number] [place] [address] [place] MCHC (RBC) [Mass/Vol] 32.8 g/dL Normal 30.5-36.0 [facility] Comment on above: Order Comment: Speci men Type: BLOOD SPECIMENOrdering Facility: [facility] Address: [address] [place] [address] Performed By: #### 5 7021-8 ####[facility] LABORATORYCLIA [id number] [place] [address] [place] MCV (RBC) [Entitic vol] 113.5 fL High 80.0-100.0 [facility] Comment on above: Order Comment: Speci men Type: BLOOD SPECIMENOrdering Facility: [facility] Address: [address] [place] [address] Performed By: #### 5 7021-8 ####[facility] LABORATORYCLIA [id number] [place] [address] [place] Monocytes (Bld) [#/Vol] 1.08 10*3/uL High <0.87 [facility] Comment on above: Order Comment: Speci men Type: BLOOD SPECIMENOrdering Facility: [facility] Address: [address] [place] [address] Performed By: #### 5 7021-8 ####[facility] LABORATORYCLIA [id number] [place] [address] [place] Monocytes/100 WBC (Bld) 6.5 % Normal [facility] Comment on above: Order Comment: Speci men Type: BLOOD SPECIMENOrdering Facility: [facility] Address: [address] [place] [address] Performed By: #### 5 7021-8 ####[facility] LABORATORYCLIA [id number] [place] [address] [place] Neutrophils (Bld) [#/Vol] 14.83 10*3/uL High 1.45-7.50 [facility] Comment on above: Order Comment: Speci men Type: BLOOD SPECIMENOrdering Facility: [facility] Address: [address] [place] [address] Performed By: #### 5 7021-8 ####[facility] LABORATORYCLIA [id number] [place] [address] [place] Neutrophils/100 WBC (Bld) 88.7 % Normal [facility] Comment on above: Order Comment: Speci men Type: BLOOD SPECIMENOrdering Facility: [facility] Address: [address] [place] [address] Performed By: #### 5 7021-8 ####[facility] LABORATORYCLIA [id number] [place] [address] [place] Nucleated RBC (Bld) [#/Vol] 0.06 10*3/uL High <0.01 [facility] Comment on above: Order Comment: Speci men Type: BLOOD SPECIMENOrdering Facility: [facility] Address: [address] [place] [address] Performed By: #### 5 7021-8 ####[facility] LABORATORYCLIA [id number] [place] [address] [place] Nucleated RBC/100 WBC (Bld) [Ratio] 0.4 /100 WBC Normal [facility] Comment on above: Order Comment: Speci men Type: BLOOD SPECIMENOrdering Facility: [facility] Address: [address] [place] [address] Performed By: #### 5 7021-8 ####[facility] LABORATORYCLIA [id number] [place] [address] [place] Platelet mean volume (Bld) [Entitic vol] 12.2 fL Normal 9.0-12.7 [facility] Comment on above: Order Comment: Speci men Type: BLOOD SPECIMENOrdering Facility: [facility] Address: [address] [place] [address] Performed By: #### 5 7021-8 ####[facility] LABORATORYCLIA [id number] [place] [id number] [facility] Platelets (Bld) [#/Vol] 210 10*3/uL Normal 150-400 [facility] Comment on above: Order Comment: Speci men Type: BLOOD SPECIMENOrdering Facility: [facility] Address: [address] [place] [address] Performed By: #### 5 7021-8 ####[facility] LABORATORYCLIA [id number] [place] [address] [place] [facility] [place] RBC (Bld) [#/Vol] 3.04 10*6/uL Low 4.20-6.00 [facility] Comment on above: Order Comment: Speci men Type: BLOOD SPECIMENOrdering Facility: [facility] Address: [address] [place] [address] Performed By: #### 5 7021-8 ####[facility] LABORATORYCLIA [id number] [address] OF [place] [facility] WBC (Bld) [#/Vol] 16.71 10*3/uL High 3.70-11.00 [facility] Comment on above: Order Comment: Speci men Type: BLOOD SPECIMENOrdering Facility: [facility] Address: [address] [place] [address] Performed By: #### 5 7021-8 ####[facility] LABORATORYCLIA [id number] [place] [id number] [facility] CONSULT PROGon 07-13-2025 CONSULT PROG HNO ID: [id number] Author: ANDREY BLANCA RPh Service: Pharmacy Author [...] Levels: No results found for: JOSH Blanca [facility] Normal [facility] Comprehensive metabolic 2000 panelon 07-13-2025 Albumin [Mass/Vol] 3.5 g/dL Normal 3.2-5.0 [facility] Comment on above: Order Comment: Speci men Type: BLOOD SPECIMENOrdering Facility: [facility] Address: [address] [place] [address] Performed By: #### 2 4323-8, 17339-2, 65521-9, HSTROP ####[facility] LABORATORYCLIA [id number] [place] [id number] [place] ALP [Catalytic activity/Vol] 83 U/L Normal 45-117 [facility] Comment on above: Order Comment: Speci men Type: BLOOD SPECIMENOrdering Facility: [facility] Address: [address] [place] [address] Performed By: #### 2 4323-8, 98418-7, 43908-5, HSTROP ####[facility] LABORATORYCLIA [id number] [place] [address] [place] [facility] ALT [Catalytic activity/Vol] 33 U/L Normal 13-61 [facility] Comment on above: Order Comment: Speci men Type: BLOOD SPECIMENOrdering Facility: [facility] Address: [address] [place] [address] Result Comment: Resu lts may be falsely depressed after the administration of Sulfasalazine and/or Sulfapyridine. Performed By: #### 2 4323-8, 79341-9, 08024-1, HSTROP ####[facility] LABORATORYCLIA [id number] [place] [id number] [place] Anion gap [Moles/Vol] 8 mmol/L Normal 5-16 [facility] Comment on above: Order Comment: Speci men Type: BLOOD SPECIMENOrdering Facility: [facility] Address: [address] [place] [address] Performed By: #### 2 4323-8, 46696-0, 72750-4, HSTROP ####[facility] LABORATORYCLIA [id number] [place] [id number] [place] AST [Catalytic activity/Vol] 35 U/L High 8-34 [facility] Comment on above: Order Comment: Speci men Type: BLOOD SPECIMENOrdering Facility: [facility] Address: [address] [place] [address] Result Comment: Resu lts may be falsely depressed after the administration of Sulfasalazine and/or Sulfapyridine. Performed By: #### 2 4323-8, 36699-0, 59469-7, HSTROP ####[facility] LABORATORYCLIA [id number] [place] [address] [place] Bilirubin [Mass/Vol] 2.0 mg/dL High 0.2-1.0 [facility] Comment on above: Order Comment: Speci men Type: BLOOD SPECIMENOrdering Facility: [facility] Address: [address] [place] [address] Performed By: #### 2 4323-8, 29204-1, 44668-8, HSTROP ####[facility] LABORATORYCLIA [id number] [place] [address] [place] Calcium [Mass/Vol] 8.8 mg/dL Normal 8.5-10.5 [facility] Comment on above: Order Comment: Speci men Type: BLOOD SPECIMENOrdering Facility: [facility] Address: [address] [place] [address] Performed By: #### 2 4323-8, 17793-2, 11584-2, HSTROP ####[facility] LABORATORYCLIA [id number] [place] [address] [place] Chloride [Moles/Vol] 100 mmol/L Normal 98-107 [facility] Comment on above: Order Comment: Speci men Type: BLOOD SPECIMENOrdering Facility: [facility] Address: [address] [place], [place] [address] Performed By: #### 2 4323-8, 08571-3, 42373-9, HSTROP ####[facility] LABORATORYCLIA [id number] [place] [id number] [place] CO2 [Moles/Vol] 31 mmol/L Normal 21-32 [facility] Comment on above: Order Comment: Speci men Type: BLOOD SPECIMENOrdering Facility: [facility] Address: [address] [place] [address] Performed By: #### 2 4323-8, 73916-5, 45081-6, HSTROP ####[facility] LABORATORYCLIA [id number] [place] [id number] [place] Creatinine [Mass/Vol] 1.21 mg/dL Normal 0.50-1.40 [facility] Comment on above: Order Comment: Speci men Type: BLOOD SPECIMENOrdering Facility: [facility] Address: [address] [place] [address] Result Comment: Kierra ents receiving either N-Acetylcysteine (NAC) or Metamizole prior to venipuncture, may have falsely depressed results. Performed By: #### 2 4323-8, 23980-1, 53991-9, HSTROP ####[facility] LABORATORYCLIA [id number] [place] [address] [place] eGFRcr SerPlBld CKD-EPI 2020 57 mL/min/1.73m??? Low >=60 [facility] Comment on above: Order Comment: Speci men Type: BLOOD SPECIMENOrdering Facility: [facility] Address: [address] [place] [address] Result Comment: Concepción mated Glomerular Filtration Rate [...] actual GFR. Performed By: #### 2 4323-8, 17033-8, 47131-9, HSTROP ####[facility] LABORATORYCLIA [id number] [place] [id number] [place] Glucose [Mass/Vol] 196 mg/dL High 70-100 [facility] Comment on above: Order Comment: Speci men Type: BLOOD SPECIMENOrdering Facility: [facility] Address: [address] [place] [address] Result Comment: The Citizen Of [place] Diabetes Association (ADA) provides guidance for cutoff [...] Standards of Medical Care in Diabetes 2016, Citizen Of [place] Diabetes Association. Diabetes Care. 2016.39(Suppl 1). Results may be falsely elevated after the administration of Sulfapyridine. Results may be falsely depressed after the administration of Sulfasalazine. Performed By: #### 2 4323-8, 43027-6, 71965-0, HSTROP ####[facility] LABORATORYCLIA [id number] [place] [address] [place] Potassium [Moles/Vol] 5.5 mmol/L High 3.5-5.1 [facility] Comment on above: Order Comment: Speci men Type: BLOOD SPECIMENOrdering Facility: [facility] Address: [address] [place] [address] Performed By: #### 2 4323-8, 79162-8, 11755-8, HSTROP ####[facility] LABORATORYCLIA [id number] [place] [address] [place] Protein [Mass/Vol] 6.4 g/dL Normal 6.0-8.5 [facility] Comment on above: Order Comment: Speci men Type: BLOOD SPECIMENOrdering Facility: [facility] Address: [address] [place] [address] Performed By: #### 2 4323-8, 80616-5, 15511-8, HSTROP ####[facility] LABORATORYCLIA [id number] [place] [address] [place] Sodium [Moles/Vol] 139 mmol/L Normal 136-145 [facility] Comment on above: Order Comment: Speci men Type: BLOOD SPECIMENOrdering Facility: [facility] Address: [address] [place] [address] Performed By: #### 2 4323-8, 73402-5, 32149-3, HSTROP ####[facility] LABORATORYCLIA [id number] [place] [address] [place] Urea nitrogen [Mass/Vol] 32 mg/dL High 06-03 [facility] Comment on above: Order Comment: Speci men Type: BLOOD SPECIMENOrdering Facility: [facility] Address: [address] [place] [address] Performed By: #### 2 4323-8, 07877-1, 28090-3, HSTROP ####[facility] LABORATORYCLIA [id number] [place] [address] [facility] [place] ECG COMPLETEon 07-13-2025 ECG COMPLETE Ventricular Rate : 1 00 BPM Atrial Rate : 104 BPM QRS Duration : 142 ms Q-T Interval : 388 ms QTC Calculation(Bazett) : 500 ms Calculated R Calhoun : 257 degrees Calculated T Calhoun : 78 degrees Undetermined rhythm Right bundle branch block Inferior infarct , age undetermined Anterolateral infarct , age undetermined Abnormal ECG When compared to previous ekg no significant changes seen Confirmed by DOMINGO SANCHEZ MD ([id number]) on 07/16/2025 11:21:35 PM NAME : SRINI LUIS PID : [id number] : 1935 Gender : Male Race : ORD : [id number] Procedure Date : Jul 13 2025 16:01:05 Edit Date : Jul 16 2025 23:21:36 Diagnosis: Undetermined rhythm Right bundle branch block Inferior infarct , age undetermined Anterolateral infarct , age undetermined Abnormal ECG When compared to previous ekg no significant changes seen Confirmed by DOMINGO SANCHEZ MD ([id number]) on 07/16/2025 11:21:35 PM Test Reason : STAT Location : 0 : ED EDFTD Overread By : DOMINGO SANCHEZ MD Edited By : DOMINGO SANCHEZ MD Referred By : , Acquired by : [id number], Normal [facility] ED NOTEon 07-13-2025 ED NOTE HNO ID: [id number] Author: RAJEEV MARTINEZ Medic Service: ? 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 ([facility]) 12/01/2022 CVA (cerebral vascular accident) ([facility]) 08/22/2022 Diverticulosis H/O echocardiogram 09/16/2022 EF 68?5 %, mod concentric LVH, mod TR, mild-mod MR with mod MAC History of anemia History of CVA (cerebrovascular accident) 08/22/2022 Pontine infarction, R>L History of stress test 10/12/2024 EF 43%, mild ischemia involving the apex 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 [...] RIGHT OP SURGERY Right 12/18/2020 Dr Arreola [facility] ARTHROPLASTY TOTAL SHOULDER 11/09/2008 right ARTHROSCOPY OF [...] supple without lymph (more content not included)... [facility] ED PROV NOTE HNO ID: [id number] Author: LUIS LAN MD Service: ? 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 Normal [facility] ED Triage Noteon 09-04-2025 ED Triage Note HNO ID: [id number] Author: EVELINE CHAVIRA PA-C Service: ? Author Type: Physician Auction Block Clerk Type: ED Triage Notes Filed: 07/13/2025 15:41 [...] BNP-T EKG SIGNATURE: Eveline Chavira PA-C Normal [facility] HIGH SENSITIVITY TROPONIN Io n 07-13-2025 Tropinin I.cardiac panel High sensitivity method 77.7 pg/mL High 0.0-54.0 [facility] Comment on above: Order Comment: Speci men Type: BLOOD SPECIMENOrdering Facility: [facility] Address: [address] [place] [address] Result Comment: CRIT ICAL Performed By: #### H STROP ####[facility] LABORATORYCLIA [id number] [place] [address] [place] Tropinin I.cardiac panel High sensitivity method 80.6 pg/mL High 0.0-54.0 [facility] Comment on above: Order Comment: Julii vladimir Type: BLOOD SPECIMENOrdering Facility: [facility] Address: [address] [place] [address] Result Comment: CRIT ICAL Performed By: #### H STROP ####[facility] LABORATORYCLIA [id number] [place] [address] [place] Tropinin I.cardiac panel High sensitivity method 74.1 pg/mL High 0.0-54.0 [facility] Comment on above: Order Comment: Speci men Type: BLOOD SPECIMENOrdering Facility: [facility] Address: [address] [place] [id number] Result Comment: CRIT ICAL Performed By: #### 2 4323-8, 32941-7, 36827-4, HSTROP ####[facility] LABORATORYCLIA [id number] [place] [address] [place] HISTORY PHYSICALon HISTORY PHYSICAL HNO ID: [id number] Author: ARMIDA PARKER MD Service: Hospital Medicine [...] the hospital and placed on a Continuous Privacy Compliance Manager. for acute on chronic CHF, sepsis and [...] -Hx bacteremia due to RLE cellulitis 05/2023 ([facility]) - Patient with chills, but no [...] CHB -Developed A fib post CABG, Had TMIMY ligation during CABG -Dual chamber Pacemaker for [...] AT DISCHA (more content not included)... Normal [facility] Magnesium [facility] Magnesium [Mass/Vol] 2.0 mg/dL Normal 1.6-2.6 [facility] Comment on above: Order Comment: Elfego [facility] Type: BLOOD SPECIMENOrdering Facility: [facility] Address: [address] [place] [address] Performed By: #### 2 4323-8, 49016-9, 81818-0, HSTROP ####[facility] LABORATORYCLIA [id number] [place] [address] [place] NT-proBNP [facility]13 Natriuretic peptide.B prohormone N-Terminal [Mass/Vol] 06937 pg/mL High <450 [facility] Comment on above: Order Comment: Elfego [facility] Type: BLOOD SPECIMENOrdering Facility: [facility] Address: [address] [place] [address] Result Comment: NT-p roBNP results of less than 300 pg/mL likely rules out acute congestive heart failure with 99% predictive value. NOTE: These cutoff points are suggested for ACUTE CHF DIAGNOSIS only Less than 50 years\X09\ Greater than 450 pg/mL 50 - 75 years\X09\\X09\ Greater than 900 pg/mL Greater than 75 years\X09\ Greater than 1800 pg/mL Performed By: #### 2 0093-8, 21415-1, 34706-7, HSTROP ####[facility] LABORATORYCLIA [id number] [place] [id number] [place] Procalcitonin SerPl-mCncon 0 07-13-2025 Procalcitonin [Mass/Vol] 0.28 ng/mL Normal 0.00-0.50 [facility] Comment on above: Order Comment: Elfego gilbert Type: BLOOD SPECIMENOrdering Facility: [facility] Address: [address] [place] [address] Result Comment: PCT Concentration Interpretation PCT <=0.1 [...] septic shock. Performed By: #### 3 3959-8 ####[facility] LABORATORYCLIA [id number] [place] [address] [place] SEPSIS LACTATE W/ REFLEX (IN ITIAL)on 07-13-2025 Lactate [Moles/Vol] 1.8 mmol/L Normal 0.4-2.0 [facility] Comment on above: Order Comment: Elfego gilbert Type: BLOOD SPECIMENOrdering Facility: [facility] Address: [address] [place] [address] Performed By: #### S LACTR ####[facility] LABORATORYCLIA [id number] [place] [id number] [place] XR CHEST 2V [...] Bilateral shoulder arthroplasties. Spondylosis. IMPRESSION: See result. Audio Visual Aids Director: BERNARDA Transcribe Date/Time: Jul 13 2025 3:57P Dictated by : LYDIA LOVETT MD This examination was interpreted and the report reviewed and electronically signed by: LYDIA LOVETT MD on Jul 13 2025 3:59PM EST [id number] Normal [facility] CBC W Auto Differential pane l (Bld)on 07-07-2025 Basophils (Bld) [#/Vol] 0.05 10*3/uL Normal <0.11 [facility] Comment on above: Order Comment: Speci men Type: BLOOD SPECIMENOrdering Facility: [facility] Address: [address] [place] [address] Performed By: #### 5 7021-8 ####[facility] [id number] [address] LABORATORYCLIA [id number] [place] [address] [place] Basophils/100 WBC (Bld) 0.9 % Normal [facility] Comment on above: Order Comment: Speci men Type: BLOOD SPECIMENOrdering Facility: [facility] Address: [address] [place] [address] Performed By: #### 5 7021-8 ####[facility] [id number] [address] LABORATORYCLIA [id number] [place] [address] [place] Differential cell count method Nom (Bld) Auto Normal [facility] Comment on above: Order Comment: Speci men Type: BLOOD SPECIMENOrdering Facility: [facility] Address: [address] [place] [address] Performed By: #### 5 7021-8 ####[facility] H[facility]PITALWNCLIA [id number] [address] LABORATORYCLIA [id number] [place] [address] [place] Eosinophils (Bld) [#/Vol] 0.06 10*3/uL Normal <0.46 [facility] Comment on above: Order Comment: Speci men Type: BLOOD SPECIMENOrdering Facility: [facility] Address: [address] [place] [address] Performed By: #### 5 7021-8 ####[facility] [id number] [address] LABORATORYCLIA [id number] [place] [address] [place] Eosinophils/100 WBC (Bld) 1.1 % Normal [facility] Comment on above: Order Comment: Speci men Type: BLOOD SPECIMENOrdering Facility: [facility] Address: [address] [place] [address] Performed By: #### 5 7021-8 ####[facility] [id number] [address] LABORATORYCLIA [id number] [place] [address] [place] Erythrocyte distribution width (RBC) [Ratio] 26.3 % High 11.5-15.0 [facility] Comment on above: Order Comment: Speci men Type: BLOOD SPECIMENOrdering Facility: [facility] Address: [address] [place] [address] Performed By: #### 5 7021-8 ####[facility] MILLTOWNCLIA [id number] [address] LABORATORYCLIA [id number] [place] [address] [place] Hematocrit (Bld) [Volume fraction] 33.5 % Low 39.0-51.0 [facility] Comment on above: Order Comment: Speci men Type: BLOOD SPECIMENOrdering Facility: [facility] Address: [address] [place] [address] Performed By: #### 5 7021-8 ####[facility]ITALWNCLIA [id number] [address] LABORATORYCLIA [id number] [place] [address] [place] Hemoglobin (Bld) [Mass/Vol] 10.7 g/dL Low 13.0-17.0 [facility] Comment on above: Order Comment: Speci men Type: BLOOD SPECIMENOrdering Facility: [facility] Address: [address] [place] [address] Performed By: #### 5 7021-8 ####[facility]ITALWNCLIA [id number] [address] LABORATORYCLIA [id number] [place] [address] [place] Immature granulocytes (Bld) [#/Vol] 10*3/uL Normal <0.10 [facility] Comment on above: Order Comment: Speci men Type: BLOOD SPECIMENOrdering Facility: [facility] Address: [address] [place] [address] Performed By: #### 5 7021-8 ####[facility] MILLTOWNCLIA [id number] [address] LABORATORYCLIA [id number] [place] [address] [place] Immature granulocytes/100 WBC (Bld) 0.4 % Normal [facility] Comment on above: Order Comment: Speci men Type: BLOOD SPECIMENOrdering Facility: [facility] Address: [address] [place] [address] Performed By: #### 5 7021-8 ####[facility] MILLTOWNCLIA [id number] [address] LABORATORYCLIA [id number] [place] [address] [place] Lymphocytes (Bld) [#/Vol] 0.81 10*3/uL Low 1.00-4.00 [facility] Comment on above: Order Comment: Speci men Type: BLOOD SPECIMENOrdering Facility: [facility] Address: [address] [place] [address] Performed By: #### 5 7021-8 ####[facility]ITALWNCLIA [id number] [address] LABORATORYCLIA [id number] [place] [address] [place] Lymphocytes/100 WBC (Bld) 15.3 % Normal [facility] Comment on above: Order Comment: Speci men Type: BLOOD SPECIMENOrdering Facility: [facility] Address: [address] [place] [address] Performed By: #### 5 7021-8 ####[facility]OSPITALWNJLIA [id number] [address] LABORATORYCLIA [id number] [place] [address] [place] MCH (RBC) [Entitic mass] 36.4 pg High 26.0-34.0 [facility] Comment on above: Order Comment: Speci men Type: BLOOD SPECIMENOrdering Facility: [facility] Address: [address] [place] [address] Performed By: #### 5 7021-8 ####[facility] MILLIVANAWNCLIA [id number] [address] LABORATORYCLIA [id number] [address] MCHC (RBC) [Mass/Vol] 31.9 g/dL Normal 30.5-36.0 [facility] Comment on above: Order Comment: Speci men Type: BLOOD SPECIMENOrdering Facility: [facility] Address: [address] [place] [address] Performed By: #### 5 7021-8 ####[facility] HOSPITALROBERTLIA [id number] [address] LABORATORYCLIA [id number] [place] [address] [place] MCV (RBC) [Entitic vol] 113.9 fL High 80.0-100.0 [facility] Comment on above: Order Comment: Speci men Type: BLOOD SPECIMENOrdering Facility: [facility] Address: [address] [place] [address] Performed By: #### 5 7021-8 ####[facility] HOSPITALNCLIA [id number] [address] LABORATORYCLIA [id number] [address] [place] Monocytes (Bld) [#/Vol] 0.75 10*3/uL Normal <0.87 [facility] Comment on above: Order Comment: Speci men Type: BLOOD SPECIMENOrdering Facility: [facility] Address: [address] [place] [address] Performed By: #### 5 7021-8 ####[facility] HOSPITALNCA [id number] [address] LABORATORYCLIA [id number] [place] [address] [place] Monocytes/100 WBC (Bld) 14.1 % Normal [facility] Comment on above: Order Comment: Speci men Type: BLOOD SPECIMENOrdering Facility: [facility] Address: [address] [place] [address] Performed By: #### 5 7021-8 ####[facility] MILLTOWNCLIA [id number] [address] LABORATORYCLIA [id number] [place] [address] [place] Neutrophils (Bld) [#/Vol] 3.62 10*3/uL Normal 1.45-7.50 [facility] Comment on above: Order Comment: Speci men Type: BLOOD SPECIMENOrdering Facility: [facility] Address: [address] [place] [address] Performed By: #### 5 7021-8 ####[facility] HOSPITALTOWNCLIA [id number] [address] LABORATORYCLIA [id number] [place] [address] [place] Neutrophils/100 WBC (Bld) 68.2 % Normal [facility] Comment on above: Order Comment: Speci men Type: BLOOD SPECIMENOrdering Facility: [facility] Address: [address] [place] [address] Performed By: #### 5 7021-8 ####[facility] MILLTOWNCLIA [id number] [address] LABORATORYCLIA [id number] [place] [address] [place] Nucleated RBC (Bld) [#/Vol] 0.02 10*3/uL High <0.01 [facility] Comment on above: Order Comment: Speci men Type: BLOOD SPECIMENOrdering Facility: [facility] Address: [address] [place] [address] Performed By: #### 5 7021-8 ####[facility] MEENAKSHIWNCLIA [id number] [address] LABORATORYCLIA [id number] [place] [address] [place] Nucleated RBC/100 WBC (Bld) [Ratio] 0.4 /100 WBC Normal [facility] Comment on above: Order Comment: Speci men Type: BLOOD SPECIMENOrdering Facility: [facility] Address: [address] [place] [address] Performed By: #### 5 7021-8 ####[facility] HOSPITALNCLIA [id number] [address] LABORATORYIA [id number] [place] [address] [place] Platelet mean volume (Bld) [Entitic vol] 11.3 fL Normal 9.0-12.7 [facility] Comment on above: Order Comment: Speci men Type: BLOOD SPECIMENOrdering Facility: [facility] Address: [address] [place] [address] Performed By: #### 5 7021-8 ####[facility] JONHWNCLIA [id number] [address] LABORATORYCLIA [id number] [place] [address] [place] Platelets (Bld) [#/Vol] 181 10*3/uL Normal 150-400 [facility] Comment on above: Order Comment: Speci men Type: BLOOD SPECIMENOrdering Facility: [facility] Address: [address] [place] [address] Performed By: #### 5 7021-8 ####[facility] [id number] [address] LABORATORYCLIA [id number] [place] [address] [place] RBC (Bld) [#/Vol] 2.94 10*6/uL Low 4.20-6.00 [facility] Comment on above: Order Comment: Speci men Type: BLOOD SPECIMENOrdering Facility: [facility] Address: [address] [place] [address] Performed By: #### 5 7021-8 ####[facility] [id number] [address] LABORATORYCLIA [id number] [place] [address] [place] [facility] WBC (Bld) [#/Vol] 5.31 10*3/uL Normal 3.70-11.00 [facility] Comment on above: Order Comment: Speci men Type: BLOOD SPECIMENOrdering Facility: [facility] Address: [address] [place] [address] Performed By: #### 5 7021-8 ####[facility] [id number] [address] LABORATORYCLIA [id number] [address] [place] CNOVSPon 07-07-2025 CNOVSP Normal [facility] Comprehensive metabolic 2000 panelon 07-07-2025 Albumin [Mass/Vol] 3.9 g/dL Normal 3.9-4.9 [facility] Comment on above: Order Comment: Speci men Type: BLOOD SPECIMENOrdering Facility: [facility] Address: [address] [place] [address] Performed By: #### 2 4323-8 ####[facility]ITALWNCLIA [id number] [place] [address] [place] ALP [Catalytic activity/Vol] 76 U/L Normal 38-113 [facility] Comment on above: Order Comment: Speci men Type: BLOOD SPECIMENOrdering Facility: [facility] Address: [address] [place] [address] Performed By: #### 2 4323-8 ####[facility] MAR[facility] MILLTOWNCLIA [id number] [place] [address] [place] ALT [Catalytic activity/Vol] 37 U/L Normal 10-54 [facility] Comment on above: Order Comment: Speci men Type: BLOOD SPECIMENOrdering Facility: [facility] Address: [address] [place] [address] Performed By: #### 2 4323-8 ####[facility]PITALWNCLIA [id number] [place] [address] [place] Anion gap [Moles/Vol] 7 mmol/L Low 8-15 [facility] Comment on above: Order Comment: Speci men Type: BLOOD SPECIMENOrdering Facility: [facility] Address: [address] [place] [address] Performed By: #### 2 4323-8 ####[facility] [place] MILLWNCLIA [id number] [place] [address] [place] AST [Catalytic activity/Vol] 39 U/L Normal 14-40 [facility] Comment on above: Order Comment: Speci men Type: BLOOD SPECIMENOrdering Facility: [facility] Address: [address] [place] [address] Performed By: #### 2 4323-8 ####[facility] MILLFOOSLANDNCLIA [id number] [place] [address] [place] Bilirubin [Mass/Vol] 1.4 mg/dL High 0.2-1.3 [facility] Comment on above: Order Comment: Speci men Type: BLOOD SPECIMENOrdering Facility: [facility] Address: [address] [place] [address] Performed By: #### 2 4323-8 ####[facility] MAR[place] MILLTOWNCLIA [id number] [place] [address] [place] Calcium [Mass/Vol] 8.9 mg/dL Normal 8.5-10.2 [facility] Comment on above: Order Comment: Speci men Type: BLOOD SPECIMENOrdering Facility: [facility] Address: [address] [place] [address] Performed By: #### 2 4323-8 ####[facility] MILLTOWNCLIA [id number] [place] [address] [place] Chloride [Moles/Vol] 101 mmol/L Normal 98-107 [facility] Comment on above: Order Comment: Speci men Type: BLOOD SPECIMENOrdering Facility: [facility] Address: [address] [place] [address] Performed By: #### 2 4323-8 ####[facility] MILLWNCLIA [id number] [place] [address] [place] CO2 [Moles/Vol] 32 mmol/L High 22-30 [facility] Comment on above: Order Comment: Speci men Type: BLOOD SPECIMENOrdering Facility: [facility] Address: [address] [place] [address] Performed By: #### 2 4323-8 ####[facility] [place] MILLTOWNCLIA [id number] [place] [address] [place] Creatinine [Mass/Vol] 1.17 mg/dL Normal 0.73-1.22 [facility] Comment on above: Order Comment: Speci men Type: BLOOD SPECIMENOrdering Facility: [facility] Address: [address] [place] [address] Performed By: #### 2 4323-8 ####[facility] MAR[place] MILLTOWNCLIA [id number] [place] [address] [place] eGFRcr SerPlBld CKD-EPI 2020 60 mL/min/1.73m??? Normal >=60 [facility] Comment on above: Order Comment: Elfego gilbert Type: BLOOD SPECIMENOrdering Facility: [facility] Address: [address] [place] [address] Result Comment: Concepción mated Glomerular Filtration Rate [...] actual GFR. Performed By: #### 2 4323-8 ####[facility] [id number] [place] [address] [place] Glucose [Mass/Vol] 133 mg/dL High 74-99 [facility] Comment on above: Order Comment: Elfego gilbert Type: BLOOD SPECIMENOrdering Facility: [facility] Address: [address] [place] [address] Result Comment: The Citizen Of [place] Diabetes Association (ADA) provides guidance for cutoff [...] Standards of Medical Care in Diabetes 2016, Citizen Of [place] Diabetes Association. Diabetes Care. 2016.39(Suppl 1). Performed By: #### 2 4323-8 ####[facility] [id number] [place] [address] [place] Potassium [Moles/Vol] 5.4 mmol/L High 3.7-5.1 [facility] Comment on above: Order Comment: Speci men Type: BLOOD SPECIMENOrdering Facility: [facility] Address: [address] [place] [address] Performed By: #### 2 4323-8 ####[facility]ITALWNCLIA [id number] [place] [address] [place] Protein [Mass/Vol] 6.0 g/dL Low 6.3-8.0 [facility] Comment on above: Order Comment: Speci men Type: BLOOD SPECIMENOrdering Facility: [facility] Address: [address] [place] [address] Performed By: #### 2 4323-8 ####[facility]ITALNCLIA [id number] [place] [address] [place] Sodium [Moles/Vol] 140 mmol/L Normal 136-144 [facility] Comment on above: Order Comment: Speci men Type: BLOOD SPECIMENOrdering Facility: [facility] Address: [address] [place] [address] Performed By: #### 2 4323-8 ####[facility] H[facility]ITALNCLIA [id number] [place] [address] [place] Urea nitrogen [Mass/Vol] 27 mg/dL High 9-24 [facility] Comment on above: Order Comment: Speci men Type: BLOOD SPECIMENOrdering Facility: [facility] Address: [address] [place] [address] Performed By: #### 2 4323-8 ####[facility] H[facility]ITALNCLIA [id number] [place] [address] [place] ECG COMPLETEon 07-07-2025 Calculated R [place] 254 degrees [facility] Calculated T [place] 13 degrees [facility] QRS Duration 144 ms [facility] QT Interval 440 ms [facility] QTC Calculation (Bazett) 511 ms [facility] Ventricular Rate 81 BPM [facility] ATRIAL FIBRILLATION COMPLETE RIGHT BUNDLE BRANCH BLOCK ANTEROLATERAL INFARCTION , AGE UNDETERMINED ABNORMAL ECG Confirmed by MD GARSIA QARAB ([id number]) on 07/07/2025 5:05:16 PM [facility] NAME : SRINI LUIS PID : [id number] : 1935 Gender : Male Race : ORD : Procedure Date : Jul 07 2025 10:41:53 Edit Date : Jul 07 2025 17:05:19 Diagnosis: ATRIAL FIBRILLATION COMPLETE RIGHT BUNDLE BRANCH BLOCK ANTEROLATERAL INFARCTION , AGE UNDETERMINED ABNORMAL ECG Confirmed by MD SUN, CECILE ([id number]) on 07/07/2025 5:05:16 PM Test Reason : jt Location : 189 : [facility] Overread By : MD GARSIA QARAB Edited By : MD GARSIA QARAB Referred By : BALJINDER GALLOWAY Acquired by : , [facility] VASCULAR [facility] [id number] 07-07-2025 ECG01 Normal [facility] EPO SerPl-aCncon 07-07-2025 Erythropoietin (EPO) Qn 45.7 mIU/mL High 2.6-18.5 [facility] Comment on above: Order Comment: Speci men Type: BLOOD SPECIMENOrdering Facility: [facility] Address: [address] [place] [address] Performed By: #### 1 5061-5 ####[facility] LABIA [id number] [address] [place] Ferritin SerPl-mCncon 2024 Ferritin [Mass/Vol] 211.0 ng/mL Normal 30.3-565.7 [facility] Comment on above: Order Comment: Speci men Type: BLOOD SPECIMENOrdering Facility: [facility] Address: [address] [place] [address] Performed By: #### 2 284-8, 97944-9, 2276-4, 2132-9 ####[facility] LABCLIA [id number] [place] [address] [place] Folate SerPl-mCncon 07-07-20 25 Folate [Mass/Vol] ng/mL Normal >4.7 [facility] Comment on above: Order Comment: Speci men Type: BLOOD SPECIMENOrdering Facility: [facility] Address: [address] [place] [address] Result Comment: A re sult of > 20 ng/mL is not necessarily indicative of a pathologic or treatable condition: it reflects a limitation of the test methodology.Assay reference range: 4.8 to 24.2 ng/mL. Suitable for detection of folate deficiency.Reference:Folate III (Folate III) [package insert V 1.0 [place]]. [facility], [place], [place]: September 2015. Performed By: #### 2 284-8, 82590-5, 2275-4, 2132-07 ####[facility] LABCLIA [id number] [address] [address] [place] Iron and Iron binding capaci [facility] 07-07-2025 Iron [Mass/Vol] 56 ug/dL Normal 41-186 [facility] Comment on above: Order Comment: Speci men Type: BLOOD SPECIMENOrdering Facility: [facility] Address: [address] [place] [address] Performed By: #### 2 284-8, 10208-8, 2276-02, 2132-07 ####[facility] LABIA [id number] [place] [address] [place] Iron binding capacity [Mass/Vol] 219 ug/dL Low 232-386 [facility] Comment on above: Order Comment: Speci men Type: BLOOD SPECIMENOrdering Facility: [facility] Address: [address] [place] [address] Performed By: #### 2 284-8, 12463-5, 4, 9 ####[facility] LABCLIA [id number] [address] [address] [place] Iron/TIBC [Molar ratio] 25.6 % Normal 15.0-57.0 [facility] Comment on above: Order Comment: Speci men Type: BLOOD SPECIMENOrdering Facility: [facility] Address: [address] [place] [address] Performed By: #### 2 284-8, 20878-0, 6-4, 2132-07 ####[facility] LABIA [id number] [place] [id number] [place] Methylmalonate SerPl-sCncon 07-07-2025 Methylmalonate [Moles/Vol] 0.29 umol/L Normal <=0.40 [facility] Comment on above: Order Comment: Speci men Type: BLOOD SPECIMENOrdering Facility: [facility] Address: [address] [place] [address] Result Comment: This test was developed, and its performance characteristics determined by the [facility] Department of Pathology and Laboratory Medicine. It has not been cleared or approved by the FDA. The [facility] Department of Pathology and Laboratory Medicine is regulated under CLIA as qualified to perform high-complexity testing. This test is used for clinical purposes. It should not be regarded as investigational or for research. Performed By: #### 1 3964-2 ####[facility] LABIA [id number] [place] [address] [place] Vit B12 SerPl-mCncon 025 Cobalamin (Vitamin B12) [Mass/Vol] 1089 pg/mL Normal 232-1245 [facility] Comment on above: Order Comment: Speci men Type: BLOOD SPECIMENOrdering Facility: [facility] Address: [address] [place], [place] [address] Performed By: #### 2 284-8, 50644-1, 2275-4, 9 ####[facility] LABIA [id number] [place] [id number] [place] CNPNon 06-30-2025 CNPN Normal [facility] CBC W/Diff, Automatedon 08-2 PATH REV Reviewed Normal [facility] Comment on above: Result Comment: SEE REPORT IN PATIENT'S EMR AMENDED REPORT 06/29/25 1551 PATH REV previously reported as: March Performed By: #### L 100.0100, L500.2500 #### [facility] [address] [place], [address] CNOVon 06-29-2025 CNOV Normal [facility] Anion gap in Serum or Plasma Ordered By: Marshal Rebolledo on 06-26-2025 Anion gap [Moles/Vol] 12 mmol/L - [facility] BUN/creatinine ratioOrdered By: Marshal Rebolledo on 06-26-2025 Urea nitrogen/Creatinine [Mass ratio] 29.5 mg/mg High - [facility] Basic Metabolic Profile (BMP )on 06-26-2025 BUN/CRE 29.5 RATIO High 08-28 [facility] Comment on above: Performed By: #### L 500.2500 #### [facility] [address] [place], [address] Calcium [Mass/Vol] 8.7 mg/dL Normal 7.6-11.0 [facility] Comment on above: Performed By: #### L 500.2500 #### [facility] [address] [place], [address] Chloride [Moles/Vol] 95 mmol/L Low 98-108 [facility] Comment on above: Performed By: #### L 500.2500 #### [facility] [address] [place], [address] CO2 [Moles/Vol] 32.3 mmol/L High 21.0-32.0 [facility] Comment on above: Performed By: #### L 500.2500 #### [facility] [address] [place], [address] Creatinine [Mass/Vol] 1.29 mg/dL High 0.70-1.20 [facility] Comment on above: Performed By: #### L 500.2500 #### [facility] [address] [place], [address] ECRCL 38.55 ml/min Low 50-250 [facility] Comment on above: Performed By: #### L 500.2500 #### [facility] [address] [place], [address] GAP 12 Normal 5-15 [facility] Comment on above: Performed By: #### L 500.2500 #### [facility] [address] [place], [address] GFR/1.73 sq M.predicted among non-blacks MDRD (S/P/Bld) [Vol rate/Area] 53 mL/min/{1.73_m2} Low >60 [facility] Comment on above: Result Comment: mL/m in/1.73m2 CKD-EPI Creatinine Equation (2020) Performed By: #### L 500.2500 #### [facility] [address] [place], [address] Glucose [Mass/Vol] 99 mg/dL Normal 70-99 [facility] Comment on above: Performed By: #### L 500.2500 #### [facility] [address] [place], [address] Potassium [Moles/Vol] 3.2 mmol/L Low 3.3-5.1 [facility] Comment on above: Performed By: #### L 500.2500 #### [facility] [address] [place], [address] Sodium [Moles/Vol] 138 mmol/L Normal 133-145 [facility] Comment on above: Performed By: #### L 500.2500 #### [facility] [address] [place], [address] Urea nitrogen [Mass/Vol] 38 mg/dL High 4-19 [facility] Comment on above: Performed By: #### L 500.2500 #### [facility] [address], [address] Carbon dioxide, total [Moles /volume] in Central venous bloodOrdered By: Marshal Rebolledo on 06-26-2025 CO2 [Moles/Vol] 32.3 mmol/L High 21.0-32.0 [facility] Chloride assayOrdered By: Ramesh Rebolledo on 06-26-2025 Chloride [Moles/Vol] 95 mmol/L Low 98-108 [facility] Discharge Instructionon 06-09 Discharge Instruction [facility] Records Department [address] [place] [address] Instructions for Home/Discharge Instructions 06/26/25 1033 MR#: [id number] Acct: [id number] Name: SRINI LUIS Rep #: [id number] : 1935 89 From: Marshal Rebolledo MD [...] MD; Dr. Ronaldo Pleitez MD Signed Normal [facility] Glomerular filtration rate ( GFR) estimation/1.73 sq m using serum, plasma, or whole bOrdered By: Marshal Rebolledo on 06-26-2025 GFR/1.73 sq M.predicted among non-blacks MDRD (S/P/Bld) [Vol rate/Area] 53 mL/min/{1.73_m2} Low >60 [facility] Comment on above: mL/min/1.73m2 CKD-EP I Creatinine Equation (2020) Magnesiumon 06-26-2025 Magnesium [Mass/Vol] 2.1 mg/dL Normal 1.5-2.2 [facility] Comment on above: Performed By: #### L 501.5200, L501.2300 #### [facility] [address] [place], [place], [address] Magnesium measurement (mass/ volume)Ordered By: Marshal Rebolledo on 06-26-2025 Magnesium (Unsp spec) [Mass/Vol] 2.1 mg/dL 1.5-2.2 [facility] Phosphoruson 06-26-2025 Phosphate [Mass/Vol] 3.9 mg/dL Normal 2.7-4.5 [facility] Comment on above: Performed By: #### L 501.5200, L501.2300 #### [facility] [address] [place], [place], [address] Potassium measurement (mass/ volume)Ordered By: Marshal Rebolledo on 06-26-2025 Potassium (Unsp spec) [Mass/Vol] 3.2 mmol/L Low 3.3-5.1 [facility] Serum creatinine measurement (mass/volume)Ordered By: Marshal Rebolledo on 06-26-2025 Creatinine [Mass/Vol] 1.29 mg/dL High 0.70-1.20 [facility] Serum glucose measurement (m ass/volume)Ordered By: Marshal Rebolledo on 06-26-2025 Glucose [Mass/Vol] 99 mg/dL 70-99 [facility] Serum or plasma calcium gris urement (mass/volume)Ordered By: Marshal Rebolledo on 06-26-2025 Calcium [Mass/Vol] 8.7 mg/dL 7.6-11.0 [facility] Serum or plasma urea nitroge n measurement (mass/volume)Ordered By: Marshal Rebolledo on 06-26-2025 Urea nitrogen [Mass/Vol] 38 mg/dL High 4-19 [facility] Sodium levelOrdered By: Katie Rebolledo on 06-26-2025 Sodium [Moles/Vol] 138 mmol/L 133-145 [facility] Absolute lymphocyte countOrd ered By: Mary Prather on 06-24-2025 Lymphocytes Auto (Unsp spec) [#/Vol] 0.86 10*3/uL 0.83-4.51 [facility] Absolute neutrophil countOrd ered By: Mary Prather on 06-24-2025 Neutrophils (Bld) [#/Vol] 4.7 10*3/uL 2.0-7.7 [facility] Automated lymphocyte count a s percentage of total leukocytesOrdered By: Mary Prather on 06-24-2025 Lymphocytes/100 WBC Auto (Unsp spec) 12.5 % Low 19-41 [facility] Basic Metabolic Profile (BMP )on 06-24-2025 BUN/CRE 27.3 RATIO High 10-20 [facility] Comment on above: Performed By: #### L 500.2500, L100.0100 #### [facility] [address] [place], [address] Calcium [Mass/Vol] 8.7 mg/dL Normal 7.6-11.0 [facility] Comment on above: Performed By: #### L 500.2500, L100.0100 #### [facility] [address] [place], [address] Chloride [Moles/Vol] 94 mmol/L Low 98-108 [facility] Comment on above: Performed By: #### L 500.2500, L100.0100 #### [facility] [address] [place], [address] CO2 [Moles/Vol] 31.4 mmol/L Normal 21.0-32.0 [facility] Comment on above: Performed By: #### L 500.2500, L100.0100 #### [facility] [address] [place], [address] Creatinine [Mass/Vol] 1.37 mg/dL High 0.70-1.20 [facility] Comment on above: Performed By: #### L 500.2500, L100.0100 #### [facility] [address] [place], [address] ECRCL 36.30 ml/min Low 50-250 [facility] Comment on above: Performed By: #### L 500.2500, L100.0100 #### [facility] [address] [place], [address] GAP 13 Normal 5-15 [facility] Comment on above: Performed By: #### L 500.2500, L100.0100 #### [facility] [address] [place], [address] GFR/1.73 sq M.predicted among non-blacks MDRD (S/P/Bld) [Vol rate/Area] 49 mL/min/{1.73_m2} Low >60 [facility] Comment on above: Result Comment: mL/m in/1.73m2 CKD-EPI Creatinine Equation (2020) Performed By: #### L 500.2500, L100.0100 #### [facility] [address] [place], [address] Glucose [Mass/Vol] 119 mg/dL High 70-99 [facility] Comment on above: Performed By: #### L 500.2500, L100.0100 #### [facility] [address] [place], [address] Potassium [Moles/Vol] 3.0 mmol/L Low 3.3-5.1 [facility] Comment on above: Performed By: #### L 500.2500, L100.0100 #### [facility] [address] [place], [address] Sodium [Moles/Vol] 138 mmol/L Normal 133-145 [facility] Comment on above: Performed By: #### L 500.2500, L100.0100 #### [facility] [address] [place], [address] Urea nitrogen [Mass/Vol] 37 mg/dL High 4-19 [facility] Comment on above: Performed By: #### L 500.2500, L100.0100 #### [facility] [address] [place], [address] Basophil percentageOrdered B y: Mary Prather on 06-24-2025 Basophils/100 WBC (Bld) 0.6 % 0-1 [facility] Blood manual differential co mment interpretation (narrative result)Ordered By: Mary Prather on 06-24-2025 Manual differential comment Gregg (Bld) [Interp] SCANNED [facility] CBC W/Diff, Automatedon 06-09 Anisocytosis Ql (Bld) 2+ Normal [facility] Comment on above: Performed By: #### L 500.2500, L100.0100 #### [facility] [address] [place], [address] HYPOCHROMASIA 1+ Normal [facility] Comment on above: Performed By: #### L 500.2500, L100.0100 #### [facility] [address] [place], [address] SMEAR COMMENT SCANNED Normal [facility] Comment on above: Performed By: #### L 500.2500, L100.0100 #### [facility] [address] [place], [address] Eosinophil percentageOrdered By: Mary Prather on 06-24-2025 Eosinophils/100 WBC (Bld) 1.7 % 0-5 [facility] Erythrocyte distribution wid th ratioOrdered By: Mary Prather on 06-24-2025 Erythrocyte distribution width (RBC) [Ratio] 26.6 % High 11.6-14.6 [facility] Erythrocyte distribution wid th standard deviationOrdered By: Mary Prather on 06-24-2025 Erythrocyte distribution width (RBC) [Ratio] 108.7 fl High 35.1-43.9 [facility] Hematocrit Auto (Bld) [Volum e fraction]Ordered By: Mary Prather on 06-24-2025 Hematocrit (Bld) [Volume fraction] 28.6 % Low 40-54 [facility] Hemoglobin measurementOrdere d By: Mary Prather on 06-24-2025 Hemoglobin (Bld) [Mass/Vol] 9.3 g/dL Low 13.0-16.5 [facility] Hypochromatic red blood cell detectionOrdered By: Mary Prather on 06-24-2025 Hypochromia Ql (Bld) 1+ [facility] Immature granulocytes/100 WB C Auto (Bld)Ordered By: Mary Prather on 06-24-2025 Immature granulocytes/100 WBC (Bld) 0.400 % 0.0-0.9 [facility] Comment on above: IG% - Immature Granu locytes (promyelocytes, myelocytes and metamyelocytes) > 1% indicates that a LEFT SHIFT is Present. Laboratory - Hematology and Cell countsOrdered By: Mary Prather on 06-24-2025 Anisocytosis Ql (Bld) 2+ [facility] MCV (mean corpuscular volume ) determinationOrdered By: Mary Prather on 06-24-2025 MCV (RBC) [Entitic vol] 110.4 fL High 80-94 [facility] Mean corpuscular hemoglobin (MCH) determinationOrdered By: Mary Prather on 06-24-2025 MCH (RBC) [Entitic mass] 35.9 pg High 27.0-32.0 [facility] Mean corpuscular hemoglobin concentration (MCHC) determinationOrdered By: Mary Prather on 06-24-2025 MCHC (RBC) [Mass/Vol] 32.5 g/dL 32-36 [facility] Mean platelet volume determi nationOrdered By: Mary Prather on 06-24-2025 Platelet mean volume (Bld) [Entitic vol] 11.1 fL 6.2-12.0 [facility] Monocyte percentageOrdered B y: Mary Prather on 06-24-2025 Monocytes/100 WBC (Bld) 15.6 % High 0-10 [facility] Neutrophil percentageOrdered By: Mary Prather on 06-24-2025 Neutrophils/100 WBC (Bld) 69.2 % 47-70 [facility] Nucleated red blood cell per centageOrdered By: Mary Prather on 06-24-2025 Nucleated RBC/100 WBC (Bld) [Ratio] 0.9 % 0-5 [facility] Platelet countOrdered By: Rico Prather on 06-24-2025 Platelets (Bld) [#/Vol] 226 10*3/uL 150-450 [facility] RBC Auto (Bld) [#/Vol]Ordere d By: Mary Prather on 06-24-2025 RBC (Bld) [#/Vol] 2.59 10*6/uL Low 4.6-6.2 [facility] White blood cell (WBC) count Ordered By: Mary Prather on 06-24-2025 WBC (Bld) [#/Vol] 6.9 10*3/uL 4.4-11.0 [facility] Absolute lymphocyte countOrd ered By: Jere Gorman on 06-23-2025 Lymphocytes Auto (Unsp spec) [#/Vol] 0.99 10*3/uL 0.83-4.51 [facility] Absolute neutrophil countOrd ered By: Jere Gorman on 06-23-2025 Neutrophils (Bld) [#/Vol] 4.7 10*3/uL 2.0-7.7 [facility] Anion gap in Serum or Plasma Ordered By: Jere Gorman on 06-23-2025 Anion gap [Moles/Vol] 13 mmol/L 5-15 [facility] Automated lymphocyte count a s percentage of total leukocytesOrdered By: Jere Gorman on 06-23-2025 Lymphocytes/100 WBC Auto (Unsp spec) 14.5 % Low 19-41 [facility] BUN/creatinine ratioOrdered By: Jere Gorman on 06-23-2025 Urea nitrogen/Creatinine [Mass ratio] 28.4 mg/mg High 10-20 [facility] Basic Metabolic Profile (BMP )on 06-23-2025 BUN/CRE 28.4 RATIO High 10-20 [facility] Comment on above: Performed By: #### L 500.2500, L100.0100 #### [facility] [address] [facility] [place], [address] Calcium [Mass/Vol] 9.0 mg/dL Normal 7.6-11.0 [facility] Comment on above: Performed By: #### L 500.2500, L100.0100 #### [facility] [address] [place], [address] Chloride [Moles/Vol] 92 mmol/L Low 98-108 [facility] Comment on above: Performed By: #### L 500.2500, L100.0100 #### [facility] [address] [place], [address] CO2 [Moles/Vol] 32.5 mmol/L High 21.0-32.0 [facility] Comment on above: Performed By: #### L 500.2500, L100.0100 #### [facility] [address] [place], [address] Creatinine [Mass/Vol] 1.43 mg/dL High 0.70-1.20 [facility] Comment on above: Performed By: #### L 500.2500, L100.0100 #### [facility] [address] [place], [address] ECRCL 36.06 ml/min Low 50-250 [facility] Comment on above: Performed By: #### L 500.2500, L100.0100 #### [facility] [address] [place], [address] GAP 13 Normal 5-15 [facility] Comment on above: Performed By: #### L 500.2500, L100.0100 #### [facility] [address] [place], [address] GFR/1.73 sq M.predicted among non-blacks MDRD (S/P/Bld) [Vol rate/Area] 47 mL/min/{1.73_m2} Low >60 [facility] Comment on above: Result Comment: mL/m in/1.73m2 CKD-EPI Creatinine Equation (2020) Performed By: #### L 500.2500, L100.0100 #### [facility] [address] [place], [address] Glucose [Mass/Vol] 160 mg/dL High 70-99 [facility] Comment on above: Performed By: #### L 500.2500, L100.0100 #### [facility] [address] [place], [address] Potassium [Moles/Vol] 3.3 mmol/L Normal 3.3-5.1 [facility] Comment on above: Performed By: #### L 500.2500, L100.0100 #### [facility] [address] [place], [address] Sodium [Moles/Vol] 138 mmol/L Normal 133-145 [facility] Comment on above: Performed By: #### L 500.2500, L100.0100 #### [facility] [address] [place], [address] Urea nitrogen [Mass/Vol] 41 mg/dL High 4-19 [facility] Comment on above: Performed By: #### L 500.2500, L100.0100 #### [facility] [address] [place], [address] Basic metabolic 2000 panelon 06-23-2025 Anion gap [Moles/Vol] 14 mmol/L Normal 8-15 [facility] Comment on above: Order Comment: Speci men Type: BLOOD SPECIMENOrdering Facility: [facility] Address: [address] [place] [address] Performed By: #### 2 4321-2 ####[facility] [id number] [place] [address] [place] Calcium [Mass/Vol] 9.0 mg/dL Normal 8.5-10.2 [facility] Comment on above: Order Comment: Speci men Type: BLOOD SPECIMENOrdering Facility: [facility] Address: [address] [place] [address] Performed By: #### 2 4321-2 ####[facility]ITALNCLIA [id number] [place] [address] [place] Chloride [Moles/Vol] 91 mmol/L Low 98-107 [facility] Comment on above: Order Comment: Speci men Type: BLOOD SPECIMENOrdering Facility: [facility] Address: [address] [place] [address] Performed By: #### 2 4321-2 ####[facility] RUBENNCRADHA [id number] [place] [address] [place] CO2 [Moles/Vol] 31 mmol/L High 22-30 [facility] Comment on above: Order Comment: Speci men Type: BLOOD SPECIMENOrdering Facility: [facility] Address: [address] [place] [address] Performed By: #### 2 4321-2 ####[facility] [id number] [place] [address] [place] Creatinine [Mass/Vol] 1.34 mg/dL High 0.73-1.22 [facility] Comment on above: Order Comment: Speci men Type: BLOOD SPECIMENOrdering Facility: [facility] Address: [address] [place] [address] Performed By: #### 2 4321-2 ####[facility]ITALNCLIA [id number] [place] [address] [place] eGFRcr SerPlBld CKD-EPI 2020 51 mL/min/1.73m??? Low >=60 [facility] Comment on above: Order Comment: Speci men Type: BLOOD SPECIMENOrdering Facility: [facility] Address: [address] [place] [address] Result Comment: Concepción mated Glomerular Filtration Rate [...] actual GFR. Performed By: #### 2 4321-2 ####[facility] JONHWNCLIA [id number] [place] [address] [place] Glucose [Mass/Vol] 117 mg/dL High 74-99 [facility] Comment on above: Order Comment: Speci men Type: BLOOD SPECIMENOrdering Facility: [facility] Address: [address] [place], [place] [address] Result Comment: The Citizen Of The [place] Diabetes Association (ADA) provides guidance for cutoff [...] Standards of Medical Care in Diabetes 2016, Citizen Of The [place] Diabetes Association. Diabetes Care. 2016.39(Suppl 1). Performed By: #### 2 4321-2 ####[facility] HOSPITALWROBERTLIA [id number] [place] [address] [place] Potassium [Moles/Vol] 3.2 mmol/L Low 3.7-5.1 [facility] Comment on above: Order Comment: Speci men Type: BLOOD SPECIMENOrdering Facility: [facility] Address: [address] [place], [place] [address] Performed By: #### 2 4321-2 ####[facility] HOSPITALWNCLIA [id number] [place] [address] [place] Sodium [Moles/Vol] 136 mmol/L Normal 136-144 [facility] Comment on above: Order Comment: Speci men Type: BLOOD SPECIMENOrdering Facility: [facility] Address: [address] [place], [place] [address] Performed By: #### 2 4321-2 ####[facility]ITALNCLIA [id number] [place] [address] [place] Urea nitrogen [Mass/Vol] 41 mg/dL High 9-24 [facility] Comment on above: Order Comment: Speci men Type: BLOOD SPECIMENOrdering Facility: [facility] Address: [address] [place] [address] Performed By: #### 2 4321-2 ####[facility] HOSPITALWNCLIA [id number] [place] [address] [place] Basophil percentageOrdered B y: Jere Gorman on 06-23-2025 Basophils/100 WBC (Bld) 0.6 % 0-1 [facility] Blood polychromasia detectio n by light microscopyOrdered By: Jere Gorman on 06-23-2025 Polychromasia LM Ql (Bld) 1+ [facility] CBC W Auto Differential pane l (Bld)on 06-23-2025 Basophils (Bld) [#/Vol] 0.04 10*3/uL Normal <0.11 [facility] Comment on above: Order Comment: Speci men Type: BLOOD SPECIMENOrdering Facility: [facility] Address: [address] [place] [address] Performed By: #### 5 7021-8 ####[facility] [id number] [place] [address] [place] Basophils/100 WBC (Bld) 0.5 % Normal [facility] Comment on above: Order Comment: Speci men Type: BLOOD SPECIMENOrdering Facility: [facility] Address: [address] [place] [address] Performed By: #### 5 7021-8 ####[facility] HOSPITALNCLIA [id number] [place] [address] [place] Differential cell count method Nom (Bld) Auto Normal [facility] Comment on above: Order Comment: Speci men Type: BLOOD SPECIMENOrdering Facility: [facility] Address: [address] [place] [address] Performed By: #### 5 7021-8 ####[facility] MILLWNCLIA [id number] [place] [address] [place] Eosinophils (Bld) [#/Vol] 0.07 10*3/uL Normal <0.46 [facility] Comment on above: Order Comment: Speci men Type: BLOOD SPECIMENOrdering Facility: [facility] Address: [address] [place] [address] Performed By: #### 5 7021-8 ####[facility] [id number] [place] [address] [place] Eosinophils/100 WBC (Bld) 0.9 % Normal [facility] Comment on above: Order Comment: Speci men Type: BLOOD SPECIMENOrdering Facility: [facility] Address: [address] [place] [address] Performed By: #### 5 7021-8 ####[facility] [id number] [place] [address] [place] Erythrocyte distribution width (RBC) [Ratio] 26.8 % High 11.5-15.0 [facility] Comment on above: Order Comment: Speci men Type: BLOOD SPECIMENOrdering Facility: [facility] Address: [address] [place] [address] Performed By: #### 5 7021-8 ####[facility] [id number] [place] [address] [place] Hematocrit (Bld) [Volume fraction] 29.9 % Low 39.0-51.0 [facility] Comment on above: Order Comment: Speci men Type: BLOOD SPECIMENOrdering Facility: [facility] Address: [address] [place] [address] Performed By: #### 5 7021-8 ####[facility] HOSPITALNCLIA [id number] [place] [address] [place] Hemoglobin (Bld) [Mass/Vol] 9.9 g/dL Low 13.0-17.0 [facility] Comment on above: Order Comment: Speci men Type: BLOOD SPECIMENOrdering Facility: [facility] Address: [address] [place] [address] Performed By: #### 5 7021-8 ####[facility] [id number] [place] [address] [place] Immature granulocytes (Bld) [#/Vol] 0.03 10*3/uL Normal <0.10 [facility] Comment on above: Order Comment: Speci men Type: BLOOD SPECIMENOrdering Facility: [facility] Address: [address] [place] [address] Performed By: #### 5 7021-8 ####[facility] [id number] [place] [address] [place] Immature granulocytes/100 WBC (Bld) 0.4 % Normal [facility] Comment on above: Order Comment: Speci men Type: BLOOD SPECIMENOrdering Facility: [facility] Address: [address] [place] [address] Performed By: #### 5 7021-8 ####[facility] [id number] [place] [address] [place] Lymphocytes (Bld) [#/Vol] 0.93 10*3/uL Low 1.00-4.00 [facility] Comment on above: Order Comment: Speci men Type: BLOOD SPECIMENOrdering Facility: [facility] Address: [address] [place] [address] Performed By: #### 5 7021-8 ####[facility] [id number] [place] [address] [place] Lymphocytes/100 WBC (Bld) 12.2 % Normal [facility] Comment on above: Order Comment: Speci men Type: BLOOD SPECIMENOrdering Facility: [facility] Address: [address] [place] [address] Performed By: #### 5 7021-8 ####[facility] JONHFOOSLANDMALENA [id number] [address] [place] MCH (RBC) [Entitic mass] 36.4 pg High 26.0-34.0 [facility] Comment on above: Order Comment: Speci men Type: BLOOD SPECIMENOrdering Facility: [facility] Address: [address] [place] [address] Performed By: #### 5 7021-8 ####[facility] HOSPITALNCManuel [id number] [place] [address] [place] MCHC (RBC) [Mass/Vol] 33.1 g/dL Normal 30.5-36.0 [facility] Comment on above: Order Comment: Speci men Type: BLOOD SPECIMENOrdering Facility: [facility] Address: [address] [place] [address] Performed By: #### 5 7021-8 ####[facility] HOSPITALNCA [id number] [place] [address] [place] MCV (RBC) [Entitic vol] 109.9 fL High 80.0-100.0 [facility] Comment on above: Order Comment: Speci men Type: BLOOD SPECIMENOrdering Facility: [facility] Address: [address] [place] [address] Performed By: #### 5 7021-8 ####[facility] HOSPITALNCLIA [id number] [place] [address] [place] Monocytes (Bld) [#/Vol] 1.16 10*3/uL High <0.87 [facility] Comment on above: Order Comment: Speci men Type: BLOOD SPECIMENOrdering Facility: [facility] Address: [address] [place] [address] Performed By: #### 5 7021-8 ####[facility] JONHWNCLIA [id number] [place] [address] [place] Monocytes/100 WBC (Bld) 15.2 % Normal [facility] Comment on above: Order Comment: Speci men Type: BLOOD SPECIMENOrdering Facility: [facility] Address: [address] [place] [address] Performed By: #### 5 7021-8 ####[facility] [id number] [place] [address] [place] Neutrophils (Bld) [#/Vol] 5.40 10*3/uL Normal 1.45-7.50 [facility] Comment on above: Order Comment: Speci men Type: BLOOD SPECIMENOrdering Facility: [facility] Address: [address] [place] [address] Performed By: #### 5 7021-8 ####[facility] [id number] [place] [address] [place] Neutrophils/100 WBC (Bld) 70.8 % Normal [facility] Comment on above: Order Comment: Speci men Type: BLOOD SPECIMENOrdering Facility: [facility] Address: [address] [place] [address] Performed By: #### 5 7021-8 ####[facility] [id number] [place] [address] [place] Nucleated RBC (Bld) [#/Vol] 0.06 10*3/uL High <0.01 [facility] Comment on above: Order Comment: Speci men Type: BLOOD SPECIMENOrdering Facility: [facility] Address: [address] [place] [address] Performed By: #### 5 7021-8 ####[facility]ALL[facility] [id number] [place] [address] [place] Nucleated RBC/100 WBC (Bld) [Ratio] 0.8 /100 WBC Normal [facility] Comment on above: Order Comment: Speci men Type: BLOOD SPECIMENOrdering Facility: [facility] Address: [address] [place] [address] Performed By: #### 5 7021-8 ####[facility]ITALNCV[facility]OSP[facility] [id number] [place] [address] [place] Platelet mean volume (Bld) [Entitic vol] 10.3 fL Normal 9.0-12.7 [facility] Comment on above: Order Comment: Speci men Type: BLOOD SPECIMENOrdering Facility: [facility] Address: [address] [place] [address] Performed By: #### 5 7021-8 ####[facility] [id number] [place] [address] [place] Platelets (Bld) [#/Vol] 238 10*3/uL Normal 150-400 [facility] Comment on above: Order Comment: Speci men Type: BLOOD SPECIMENOrdering Facility: [facility] Address: [address] [place] [address] Performed By: #### 5 7021-8 ####[facility] [id number] [place] [address] [place] RBC (Bld) [#/Vol] 2.72 10*6/uL Low 4.20-6.00 [facility] Comment on above: Order Comment: Speci men Type: BLOOD SPECIMENOrdering Facility: [facility] Address: [address] [place] [address] Performed By: #### 5 7021-8 ####[facility] [id number] [place] [address] [place] WBC (Bld) [#/Vol] 7.63 10*3/uL Normal 3.70-11.00 [facility] Comment on above: Order Comment: Speci men Type: BLOOD SPECIMENOrdering Facility: [facility] Address: [address] [place] [address] Performed By: #### 5 7021-8 ####[facility] [id number] [place] [address] [place] CBC W/Diff, Automatedon 08- HYPOCHROMASIA 1+ Normal [facility] Comment on above: Performed By: #### L 500.2500, L100.0100 #### [facility] [address] [place], [address] POLYCHROMASIA 1+ Normal [facility] Comment on above: Performed By: #### L 500.2500, L100.0100 #### [facility] [address] [place], [address] Anisocytosis Ql (Bld) 2+ Normal [facility] Comment on above: Performed By: #### L 500.2500, L100.0100 #### [facility] [address] [place], [address] PLT EST ADEQUATE Normal ADEQ [facility] Comment on above: Performed By: #### L 500.2500, L100.0100 #### [facility] [address] [place], [address] SMEAR COMMENT SCANNED Normal [facility] Comment on above: Performed By: #### L 500.2500, L100.0100 #### [facility] [address] [place], [address] CNOVon 06-23-2025 CNOV Normal [facility] CRP SerPl-mCncon 06-23-2025 CRP [Mass/Vol] 0.8 mg/dL Normal <0.9 [facility] Comment on above: Order Comment: Speci men Type: BLOOD SPECIMENOrdering Facility: [facility] Address: [address] [place] [address] Performed By: #### 1 988-5 ####[facility] LABCLIA [id number] [address] [address] [place] Carbon dioxide, total [Moles /volume] in Central venous bloodOrdered By: Jere Gorman on 06-23-2025 CO2 [Moles/Vol] 32.5 mmol/L High 21.0-32.0 [facility] Chloride assayOrdered By: Esteban Gorman on 06-23-2025 Chloride [Moles/Vol] 92 mmol/L Low 98-108 [facility] ESR Westergren method (Bld) [Velocity]on 06-23-2025 ESR (Bld) [Velocity] 8 mm/h Normal 0-15 [facility] Comment on above: Order Comment: Speci men Type: BLOOD SPECIMENOrdering Facility: [facility] Address: [address] [place] [address] Performed By: #### 4 537-7 ####[facility] LABCLIA [id number] [address] [address] [place] Emergency Department Summary on 06-23-2025 Emergency Department Summary [facility] Medical Records Department [address] [place] [address] Emergency Department Summary 06/23/25 MR#: [id number] Acct: [id number] Name: SRINI LUIS Rep #: [id number] : 1935 89 From: Jere Gorman MD [...] through his [facility] physicians this redness is getting worse so they sent him in to be admitted for IV antibiotics. He denies any fever or chills. Prior similar symptoms: No Recent Illness/Hospitalization: No PFSH [facility] Medical History Cellulitis CMML (chronic [...] on th (more content not included)... Normal [facility] Eosinophil percentageOrdered By: Jere Gorman on 06-23-2025 Eosinophils/100 WBC (Bld) 0.9 % 0-5 [facility] Erythrocyte distribution wid th ratioOrdered By: Jere Gorman on 06-23-2025 Erythrocyte distribution width (RBC) [Ratio] 26.7 % High 11.6-14.6 [facility] Erythrocyte distribution wid th standard deviationOrdered By: Jere Gorman on 06-23-2025 Erythrocyte distribution width (RBC) [Ratio] 109.9 fl High 35.1-43.9 [facility] Glomerular filtration rate ( GFR) estimation/1.73 sq m using serum, plasma, or whole bOrdered By: Jere Gorman on 06-23-2025 GFR/1.73 sq M.predicted among non-blacks MDRD (S/P/Bld) [Vol rate/Area] 47 mL/min/{1.73_m2} Low >60 [facility] Comment on above: mL/min/1.73m2 CKD-EP I Creatinine Equation (2020) H AND P Exam - [facility] 06-23-2025 H&P Exam - Hospitalist [facility] Medical Records Department [address] [place] [address] H P Exam - Hospitalist 06/23/25 1621 MR#: [id number] Acct: [id number] Name: SRINI LUIS Rep #: [id number] : 1935 89 From: Mary Prather MD PCP: Dr. 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 Normal [facility] Hematocrit Auto (Bld) [Volum e fraction]Ordered By: Jere Gorman on 06-23-2025 Hematocrit (Bld) [Volume fraction] 29.5 % Low 40-54 [facility] Hemoglobin measurementOrdere d By: Jere Gorman on 06-23-2025 Hemoglobin (Bld) [Mass/Vol] 9.7 g/dL Low 13.0-16.5 [facility] Immature granulocytes/100 WB C Auto (Bld)Ordered By: Jere Gorman on 06-23-2025 Immature granulocytes/100 WBC (Bld) 0.300 % 0.0-0.9 [facility] Comment on above: IG% - Immature Granu locytes (promyelocytes, myelocytes and metamyelocytes) > 1% indicates that a LEFT SHIFT is Present. MCV (mean corpuscular volume ) determinationOrdered By: Jere Gorman on 06-23-2025 MCV (RBC) [Entitic vol] 111.3 fL High 80-94 [facility] Mean corpuscular hemoglobin (MCH) determinationOrdered By: Jere Gorman on 06-23-2025 MCH (RBC) [Entitic mass] 36.6 pg High 27.0-32.0 [facility] Mean corpuscular hemoglobin concentration (MCHC) determinationOrdered By: Jere Gorman on 06-23-2025 MCHC (RBC) [Mass/Vol] 32.9 g/dL 32-36 [facility] Mean platelet volume determi nationOrdered By: Jere Gorman on 06-23-2025 Platelet mean volume (Bld) [Entitic vol] 10.6 fL 6.2-12.0 [facility] Monocyte percentageOrdered B y: Jere Gorman on 06-23-2025 Monocytes/100 WBC (Bld) 15.5 % High 0-10 [facility] Neutrophil percentageOrdered By: Jere Gorman on 06-23-2025 Neutrophils/100 WBC (Bld) 68.2 % 47-70 [facility] Nucleated red blood cell per centageOrdered By: Jere Gorman on 06-23-2025 Nucleated RBC/100 WBC (Bld) [Ratio] 0.7 % 0-5 [facility] Platelet countOrdered By: Esteban Gorman on 06-23-2025 Platelets (Bld) [#/Vol] 230 10*3/uL 150-450 [facility] Platelet estimateOrdered By: Jere Gorman on 06-23-2025 Platelets LM Ql (Bld) ADEQUATE ADEQ [facility] Potassium measurement (mass/ volume)Ordered By: Jere Gorman on 06-23-2025 Potassium (Unsp spec) [Mass/Vol] 3.3 mmol/L 3.3-5.1 [facility] RBC Auto (Bld) [#/Vol]Ordere d By: Jere Gorman on 06-23-2025 RBC (Bld) [#/Vol] 2.65 10*6/uL Low 4.6-6.2 [facility] Serum creatinine measurement (mass/volume)Ordered By: Jere Gorman on 06-23-2025 Creatinine [Mass/Vol] 1.43 mg/dL High 0.70-1.20 [facility] Serum glucose measurement (m ass/volume)Ordered By: Jere Gorman on 06-23-2025 Glucose [Mass/Vol] 160 mg/dL High 70-99 [facility] Serum or plasma calcium gris urement (mass/volume)Ordered By: Jere Gorman on 06-23-2025 Calcium [Mass/Vol] 9.0 mg/dL 7.6-11.0 [facility] Serum or plasma urea nitroge n measurement (mass/volume)Ordered By: Jere Gorman on 06-23-2025 Urea nitrogen [Mass/Vol] 41 mg/dL High 4-19 [facility] Sodium levelOrdered By: Jere Gorman on 06-23-2025 Sodium [Moles/Vol] 138 mmol/L 133-145 [facility] White blood cell (WBC) count Ordered By: Jere Gorman on 06-23-2025 WBC (Bld) [#/Vol] 6.8 10*3/uL 4.4-11.0 [facility] CNOVon 06-21-2025 CNOV Normal [facility] CNPNon 06-19-2025 CNPN Telephone ([id number]) -- SIRNI LUIS ([id number]) 1935 Robyn Date Time Provider Department 06/19/25 IRAM OJHNSON [id number] During your visit today, we recorded the following information about you: Shilpa Abraham MA 06/19/2025 11:10 AM Signed Patient went to [facility] over the weekend for his swelling. He is being treated for Cellulitis and was given an antibiotic for a week. He did have a doppler and it was negative for a clot. She is asking if he should continue taking the increased dose of Lasix after a week? Iram Johnson, MARTIN.TELEPHONE ORDER SUPERVISOR 06/19/2025 11:46 AM Signed I think it [...] echo a week from now from the Keyboard Teacher. Can you let her know what he should do Iram Johnson, MARTIN.TELEPHONE ORDER SUPERVISOR 07/13/2025 9:57 AM Signed At this point, [...] Pruritus [L29.9 (more content not included)... Normal [facility] Venous Duplex US, Unilateral on 06-19-2025 Venous Duplex US, Unilateral [facility] [address] [facility] [place] [address] Venous Duplex US, Unilateral 06/19/25 1006 MR#: [id number] Acct: [id number] Name: SRINI LUIS Rep #: [id number] : 1935 89 From: Ned Dinh MD [...] preliminary report was called and/or faxed to [facility] demonstrates pulsatile venous flow. ED. POP [...] Dictated: 06/19/25 1006 Date Transcribed: 06/19/25 112 Audio Visual Aids Director: Signed Normal [facility] Venous duplex ultrasound rep ortOrdered By: Ned Dinh on 06-19-2025 US Vein [facility] [address] [place] [place] [address] Venous Duplex US, Unilateral 06/19/25 1006 MR#: [id number] Acct: [id number] Name: SRINI LUIS Rep #:[id number] : [...] preliminary report was called and/or faxed to [facility] demonstrates pulsatile venous flow. ED. POP [...] Dictated: 06/19/25 1006 Date Transcribed: 06/19/25 1121 Audio Visual Aids Director: Signed [facility] Work Phone: 12 Lead EKGon 06-18-2025 12 Lead EKG [facility] Cardi[facility] Services [address] [place] [address] 12 Lead EKG 06/18/252106 MR#: [id number] Acct: [id number] Name: SRINI LUIS Rep #: [id number] : 1935 89 From: Israel Rowley MD [...] undetermined Abnormal ECG Confirmed by Israel Rowley ([id number]), science editor BEBO JUAN ([id number]) on 06/21/2025 9:35:00 AM Referred By: DIANE Confirmed By: Israel Rowley 06/21/25 0935 Date Israel Rowley MD CC: Dr. Ned Chew DO; Dr. Bryanna Tijerina MD; Dr. Ronaldo Pleitez MD Signed Normal [facility] Absolute lymphocyte countOrd ered By: Bryanna Tijerina on 06-18-2025 Lymphocytes Auto (Unsp spec) [#/Vol] 0.94 10*3/uL 0.83-4.51 [facility] Absolute neutrophil countOrd ered By: Bryanna Tijerina on 06-18-2025 Neutrophils (Bld) [#/Vol] 4.8 10*3/uL 2.0-7.7 [facility] Anion gap in Serum or Plasma Ordered By: Bryanna Tijerina on 06-18-2025 Anion gap [Moles/Vol] 10 mmol/L 5-15 [facility] Automated lymphocyte count a s percentage of total leukocytesOrdered By: Bryanna Tijerina on 06-18-2025 Lymphocytes/100 WBC Auto (Unsp spec) 13.2 % Low 19-41 [facility] BUN/creatinine ratioOrdered By: Bryanna Tijerina on 06-18-2025 Urea nitrogen/Creatinine [Mass ratio] 21.2 mg/mg High 10-20 [facility] Basic Metabolic Profile (BMP )on 06-18-2025 BUN/CRE 21.2 RATIO High 08-28 [facility] Comment on above: Performed By: #### L 100.0100, L500.2500 #### [facility] [address] [place], [address] Calcium [Mass/Vol] 9.0 mg/dL Normal 7.6-11.0 [facility] Comment on above: Performed By: #### L 100.0100, L500.2500 #### [facility] [address] [place], [address] Chloride [Moles/Vol] 98 mmol/L Normal 98-108 [facility] Comment on above: Performed By: #### L 100.0100, L500.2500 #### [facility] [address] [place], [address] CO2 [Moles/Vol] 30.8 mmol/L Normal 21.0-32.0 [facility] Comment on above: Performed By: #### L 100.0100, L500.2500 #### [facility] [address] [place], [address] Creatinine [Mass/Vol] 1.37 mg/dL High 0.70-1.20 [facility] Comment on above: Performed By: #### L 100.0100, L500.2500 #### [facility] [address] [place], [address] ECRCL 38.13 ml/min Low 50-250 [facility] Comment on above: Performed By: #### L 100.0100, L500.2500 #### [facility] [address] [place], [address] GAP 10 Normal 5-15 [facility] Comment on above: Performed By: #### L 100.0100, L500.2500 #### [facility] [address] [place], [address] GFR/1.73 sq M.predicted among non-blacks MDRD (S/P/Bld) [Vol rate/Area] 49 mL/min/{1.73_m2} Low >60 [facility] Comment on above: Result Comment: mL/m in/1.73m2 CKD-EPI Creatinine Equation (2020) Performed By: #### L 100.0100, L500.2500 #### [facility] [address] [place], [address] Glucose [Mass/Vol] 158 mg/dL High 70-99 [facility] Comment on above: Performed By: #### L 100.0100, L500.2500 #### [facility] [address] [place], [address] Potassium [Moles/Vol] 4.6 mmol/L Normal 3.3-5.1 [facility] Comment on above: Performed By: #### L 100.0100, L500.2500 #### [facility] [address] [place], [address] Sodium [Moles/Vol] 139 mmol/L Normal 133-145 [facility] Comment on above: Performed By: #### L 100.0100, L500.2500 #### [facility] [address] [place], [address] Urea nitrogen [Mass/Vol] 29 mg/dL High 4-19 [facility] Comment on above: Performed By: #### L 100.0100, L500.2500 #### [facility] [address] [place], [address] Basophil percentageOrdered B y: Bryanna Tijerina on 06-18-2025 Basophils/100 WBC (Bld) 0.7 % 0-1 [facility] Blood manual differential co mment interpretation (narrative result)Ordered By: Bryannamichelle Tijerina on 06-18-2025 Manual differential comment Gregg (Bld) [Interp] See comment [facility] Comment on above: ANISOCYTOSIS 3+ Blood polychromasia detectio n by light microscopyOrdered By: Bryanna Tijerina on 06-18-2025 Polychromasia LM Ql (Bld) 1+ [facility] Carbon dioxide, total [Moles /volume] in Central venous bloodOrdered By: Bryanna Tijerina on 06-18-2025 CO2 [Moles/Vol] 30.8 mmol/L 21.0-32.0 [facility] Chloride assayOrdered By: Abhay Tijerina on 06-18-2025 Chloride [Moles/Vol] 98 mmol/L 98-108 [facility] Emergency Department Summary on 06-18-2025 Emergency Department Summary [facility] Medical Records Department [address] [place] [address] Emergency Department Summary 06/18/25 MR#: [id number] Acct: [id number] Name: SRINI LUIS Rep #: [id number] : 1935 89 From: Bryanna Tijerina MD [...] travel, hospitalizations or surgeries. Chief Complaint: Edema [facility] Medical History Cellulitis CMML (chronic [...] nontender. N (more content not included)... Normal [facility] Eosinophil percentageOrdered By: Bryanna Tijerina on 06-18-2025 Eosinophils/100 WBC (Bld) 0.7 % 0-5 [facility] Erythrocyte basophilic stipp ling detectionOrdered By: Bryanna Tijerina on 06-18-2025 Basophilic stippling LM Ql (Bld) RARE [facility] Erythrocyte distribution wid th ratioOrdered By: Bryanna Tijerina on 06-18-2025 Erythrocyte distribution width (RBC) [Ratio] 26.8 % High 11.6-14.6 [facility] Erythrocyte distribution wid th standard deviationOrdered By: Bryanna Tijerina on 06-18-2025 Erythrocyte distribution width (RBC) [Ratio] 111.8 fl High 35.1-43.9 [facility] Erythrocyte morphology asses smentOrdered By: Bryanna Tijerina on 06-18-2025 RBC morphology finding Nom (Bld) 1+ [facility] Glomerular filtration rate ( GFR) estimation/1.73 sq m using serum, plasma, or whole bOrdered By: Bryanna Tijerina on 06-18-2025 GFR/1.73 sq M.predicted among non-blacks MDRD (S/P/Bld) [Vol rate/Area] 49 mL/min/{1.73_m2} Low >60 [facility] Comment on above: mL/min/1.73m2 CKD-EP I Creatinine Equation (2020) Hematocrit Auto (Bld) [Volum e fraction]Ordered By: Bryanna Tijerina on 06-18-2025 Hematocrit (Bld) [Volume fraction] 29.8 % Low 40-54 [facility] Hemoglobin measurementOrdere d By: Bryanna Tijerina on 06-18-2025 Hemoglobin (Bld) [Mass/Vol] 9.6 g/dL Low 13.0-16.5 [facility] Hypochromatic red blood cell detectionOrdered By: Bryanna Tijerina on 06-18-2025 Hypochromia Ql (Bld) RARE [facility] Immature granulocytes/100 WB C Auto (Bld)Ordered By: Bryanna Tijerina on 06-18-2025 Immature granulocytes/100 WBC (Bld) 0.300 % 0.0-0.9 [facility] Comment on above: IG% - Immature Granu locytes (promyelocytes, myelocytes and metamyelocytes) > 1% indicates that a LEFT SHIFT is Present. Laboratory - Hematology and Cell countsOrdered By: Bryanna Tijerina on 06-18-2025 Anisocytosis Ql (Bld) 3+ [facility] MCV (mean corpuscular volume ) determinationOrdered By: Bryanna Tijerina on 06-18-2025 MCV (RBC) [Entitic vol] 112.5 fL High 80-94 [facility] Mean corpuscular hemoglobin (MCH) determinationOrdered By: Bryanna Tijerina on 06-18-2025 MCH (RBC) [Entitic mass] 36.2 pg High 27.0-32.0 [facility] Mean corpuscular hemoglobin concentration (MCHC) determinationOrdered By: Bryanna Tijerina on 06-18-2025 MCHC (RBC) [Mass/Vol] 32.2 g/dL 32-36 [facility] Mean platelet volume determi nationOrdered By: Bryanna Tijerina on 06-18-2025 Platelet mean volume (Bld) [Entitic vol] 12.5 fL High 6.2-12.0 [facility] Monocyte percentageOrdered B y: Bryanna Tijerina on 06-18-2025 Monocytes/100 WBC (Bld) 17.3 % High 0-10 [facility] Neutrophil percentageOrdered By: Bryanna Tijerina on 06-18-2025 Neutrophils/100 WBC (Bld) 67.8 % 47-70 [facility] Nucleated red blood cell per centageOrdered By: Bryanna Tijerina on 06-18-2025 Nucleated RBC/100 WBC (Bld) [Ratio] 1.4 % 0-5 [facility] Ovalocyte detectionOrdered B y: Bryanna Tijerina on 06-18-2025 Ovalocytes LM Ql (Bld) RARE [facility] Platelet countOrdered By: Abhay Tijerina on 06-18-2025 Platelets (Bld) [#/Vol] 225 10*3/uL 150-450 [facility] Platelet morphologyOrdered B y: Bryanna Tjierina on 06-18-2025 Platelet morphology finding Nom (Bld) [facility] Platelet morphology finding Nom (Bld) LARGE [facility] Comment on above: Previous reported re sult: GIANT Edited by: JOSÉ MANUEL on 06/19/25:0128 AMENDED REPORT 06/19/25 0128 PLT MORPH previously reported as: GIANT Potassium measurement (mass/ volume)Ordered By: Bryanna Tijerina on 06-18-2025 Potassium (Unsp spec) [Mass/Vol] 4.6 mmol/L 3.3-5.1 [facility] RBC Auto (Bld) [#/Vol]Ordere d By: Bryanna Tijerina on 06-18-2025 RBC (Bld) [#/Vol] 2.65 10*6/uL Low 4.6-6.2 [facility] Review by pathologistOrdered By: Bryanna Tijerina on 06-18-2025 Pathologist review Gregg (Unsp spec) [Interp] March [facility] Serum creatinine measurement (mass/volume)Ordered By: Bryanna Tijerina on 06-18-2025 Creatinine [Mass/Vol] 1.37 mg/dL High 0.70-1.20 [facility] Serum glucose measurement (m ass/volume)Ordered By: Bryanna Tijerina on 06-18-2025 Glucose [Mass/Vol] 158 mg/dL High 70-99 [facility] Serum or plasma calcium gris urement (mass/volume)Ordered By: Bryanna Tijerina on 06-18-2025 Calcium [Mass/Vol] 9.0 mg/dL 7.6-11.0 [facility] Serum or plasma urea nitroge n measurement (mass/volume)Ordered By: Bryanna Tijerina on 06-18-2025 Urea nitrogen [Mass/Vol] 29 mg/dL High 4-19 [facility] Sodium levelOrdered By: Ned Tijerina on 06-18-2025 Sodium [Moles/Vol] 139 mmol/L 133-145 [facility] White blood cell (WBC) count Ordered By: Bryanna Tijerina on 06-18-2025 WBC (Bld) [#/Vol] 7.1 10*3/uL 4.4-11.0 [facility] CNPMichelle 06-16-2025 MAURICION Telephone ([id number]) -- KIERRASRINI ([id number]) 1935 M Date Time Provider Department 06/16/25 IRAM JOHNSON [id number] During your visit today, we recorded the [...] what he needs to do Iram Johnson, PRODUCT DEVELOPMENT MANAGER.[facility] 06/16/2025 2:08 PM Signed His Lasix order says that he can take an extra 20 mg of Lasix daily if his swelling increases. Has he been doing that? Lakesha Pabon MA 06/16/2025 2:54 PM Signed Pt called in stating he has only been taking only 20mg twice daily. He has not been taking any extra Iram Johnson, PRODUCT DEVELOPMENT MANAGER.TELEPHONE ORDER SUPERVISOR 06/16/2025 3:30 PM Signed Tell the patient [...] - Fully Assessed Reason for Visit: Information [[id number]] Prescriptions as of 06/16/2025 - furosemide (LASIX) [...] atrial append (more content not included)... Normal [facility] CBC W Auto Differential pane l (Bld)on 06-09-2025 Basophils (Bld) [#/Vol] 0.07 10*3/uL Normal <0.11 [facility] Comment on above: Order Comment: Speci men Type: BLOOD SPECIMENOrdering Facility: [facility] Address: [address] [place] [address] Performed By: #### 5 7021-8 ####[facility]OSPITALWROBERTLIA [id number] [place] [address] [place] Basophils/100 WBC (Bld) 1.0 % Normal [facility] Comment on above: Order Comment: Speci men Type: BLOOD SPECIMENOrdering Facility: [facility] Address: [address] [place] [address] Performed By: #### 5 7021-8 ####[facility] [id number] [place] [address] [place] Differential cell count method Nom (Bld) Auto Normal [facility] Comment on above: Order Comment: Speci men Type: BLOOD SPECIMENOrdering Facility: [facility] Address: [address] [place] [address] Performed By: #### 5 7021-8 ####[facility] [id number] [place] [address] [place] Eosinophils (Bld) [#/Vol] 0.07 10*3/uL Normal <0.46 [facility] Comment on above: Order Comment: Speci men Type: BLOOD SPECIMENOrdering Facility: [facility] Address: [address] [place] [address] Performed By: #### 5 7021-8 ####[facility] [id number] [place] [address] [place] Eosinophils/100 WBC (Bld) 1.0 % Normal [facility] Comment on above: Order Comment: Speci men Type: BLOOD SPECIMENOrdering Facility: [facility] Address: [address] [place] [address] Performed By: #### 5 7021-8 ####[facility] JONHFOOSLANDMALENA [id number] [place] [address] [place] Erythrocyte distribution width (RBC) [Ratio] 26.0 % High 11.5-15.0 [facility] Comment on above: Order Comment: Speci men Type: BLOOD SPECIMENOrdering Facility: [facility] Address: [address] [place] [address] Performed By: #### 5 7021-8 ####[facility] [id number] [place] [address] [place] Hematocrit (Bld) [Volume fraction] 26.9 % Low 39.0-51.0 [facility] Comment on above: Order Comment: Speci men Type: BLOOD SPECIMENOrdering Facility: [facility] Address: [address] [place] [address] Performed By: #### 5 7021-8 ####[facility] [id number] [place] [address] [place] Hemoglobin (Bld) [Mass/Vol] 9.0 g/dL Low 13.0-17.0 [facility] Comment on above: Order Comment: Speci men Type: BLOOD SPECIMENOrdering Facility: [facility] Address: [address] [place] [address] Performed By: #### 5 7021-8 ####[facility]ITALNCLIA [id number] [place] [address] [place] Immature granulocytes (Bld) [#/Vol] 0.05 10*3/uL Normal <0.10 [facility] Comment on above: Order Comment: Speci men Type: BLOOD SPECIMENOrdering Facility: [facility] Address: [address] [place] [address] Performed By: #### 5 7021-8 ####[facility] JONHFOOSLANDKOSTAA [id number] [place] [address] [place] Immature granulocytes/100 WBC (Bld) 0.7 % Normal [facility] Comment on above: Order Comment: Speci men Type: BLOOD SPECIMENOrdering Facility: [facility] Address: [address] [place] [address] Performed By: #### 5 7021-8 ####[facility] [id number] [place] [address] [place] Lymphocytes (Bld) [#/Vol] 1.00 10*3/uL Normal 1.00-4.00 [facility] Comment on above: Order Comment: Speci men Type: BLOOD SPECIMENOrdering Facility: [facility] Address: [address] [place] [address] Performed By: #### 5 7021-8 ####[facility] [id number] [place] [address] [place] Lymphocytes/100 WBC (Bld) 13.6 % Normal [facility] Comment on above: Order Comment: Speci men Type: BLOOD SPECIMENOrdering Facility: [facility] Address: [address] [place] [address] Performed By: #### 5 7021-8 ####[facility] [id number] [place] [address] [place] MCH (RBC) [Entitic mass] 36.6 pg High 26.0-34.0 [facility] Comment on above: Order Comment: Speci men Type: BLOOD SPECIMENOrdering Facility: [facility] Address: [address] [place] [address] Performed By: #### 5 7021-8 ####[facility]ITALNCLIA [id number] [place] [address] [place] MCHC (RBC) [Mass/Vol] 33.5 g/dL Normal 30.5-36.0 [facility] Comment on above: Order Comment: Speci men Type: BLOOD SPECIMENOrdering Facility: [facility] Address: [address] [place] [address] Performed By: #### 5 7021-8 ####[facility] [id number] [place] [address] [place] MCV (RBC) [Entitic vol] 109.3 fL High 80.0-100.0 [facility] Comment on above: Order Comment: Speci men Type: BLOOD SPECIMENOrdering Facility: [facility] Address: [address] [place] [address] Performed By: #### 5 7021-8 ####[facility] [id number] [place] [address] [place] Monocytes (Bld) [#/Vol] 0.94 10*3/uL High <0.87 [facility] Comment on above: Order Comment: Speci men Type: BLOOD SPECIMENOrdering Facility: [facility] Address: [address] [place] [address] Performed By: #### 5 7021-8 ####[facility] [id number] [place] [address] [place] Monocytes/100 WBC (Bld) 12.8 % Normal [facility] Comment on above: Order Comment: Speci men Type: BLOOD SPECIMENOrdering Facility: [facility] Address: [address] [place] [address] Performed By: #### 5 7021-8 ####[facility] [id number] [place] [address] [place] Neutrophils (Bld) [#/Vol] 5.23 10*3/uL Normal 1.45-7.50 [facility] Comment on above: Order Comment: Speci men Type: BLOOD SPECIMENOrdering Facility: [facility] Address: [address] [place] [address] Performed By: #### 5 7021-8 ####[facility] JONHFOOSLANDKOSTAA [id number] [place] [address] [place] Neutrophils/100 WBC (Bld) 70.9 % Normal [facility] Comment on above: Order Comment: Speci men Type: BLOOD SPECIMENOrdering Facility: [facility] Address: [address] [place] [address] Performed By: #### 5 7021-8 ####[facility] [id number] [place] [address] [place] Nucleated RBC (Bld) [#/Vol] 0.09 10*3/uL High <0.01 [facility] Comment on above: Order Comment: Speci men Type: BLOOD SPECIMENOrdering Facility: [facility] Address: [address] [place] [address] Performed By: #### 5 7021-8 ####[facility] [id number] [place] [address] [place] Nucleated RBC/100 WBC (Bld) [Ratio] 1.2 /100 WBC Normal [facility] Comment on above: Order Comment: Speci men Type: BLOOD SPECIMENOrdering Facility: [facility] Address: [address] [place] [address] Performed By: #### 5 7021-8 ####[facility] [id number] [place] [address] [place] Platelet mean volume (Bld) [Entitic vol] 11.9 fL Normal 9.0-12.7 [facility] Comment on above: Order Comment: Speci men Type: BLOOD SPECIMENOrdering Facility: [facility] Address: [address] [place] [address] Performed By: #### 5 7021-8 ####[facility]ITALNCLIA [id number] [place] [address] [place] Platelets (Bld) [#/Vol] 291 10*3/uL Normal 150-400 [facility] Comment on above: Order Comment: Speci men Type: BLOOD SPECIMENOrdering Facility: [facility] Address: [address] [place] [address] Performed By: #### 5 7021-8 ####[facility] [id number] [place] [address] [place] RBC (Bld) [#/Vol] 2.46 10*6/uL Low 4.20-6.00 [facility] Comment on above: Order Comment: Speci men Type: BLOOD SPECIMENOrdering Facility: [facility] Address: [address] [place] [address] Performed By: #### 5 7021-8 ####[facility] [id number] [place] [address] [place] WBC (Bld) [#/Vol] 7.36 10*3/uL Normal 3.70-11.00 [facility] Comment on above: Order Comment: Speci men Type: BLOOD SPECIMENOrdering Facility: [facility] Address: [address] [place] [address] Performed By: #### 5 7021-8 ####[facility] [id number] [place] [address] [place] CNOVon 06-05-2025 CNOV Normal [facility] CNOVon 05-30-2025 CNOV Normal [facility] CBC W Auto Differential pane l (Bld)on 05-26-2025 Basophils (Bld) [#/Vol] 0.06 10*3/uL Normal <0.11 [facility] Comment on above: Order Comment: Speci men Type: BLOOD SPECIMENOrdering Facility: [facility] Address: [address] [place] [address] Performed By: #### 5 7021-8 ####[facility] JONHWNCLIA [id number] [place] [address] [place] Basophils/100 WBC (Bld) 0.9 % Normal [facility] Comment on above: Order Comment: Speci men Type: BLOOD SPECIMENOrdering Facility: [facility] Address: [address] [place] [address] Performed By: #### 5 7021-8 ####[facility] [id number] [place] [address] [place] Differential cell count method Nom (Bld) Auto Normal [facility] Comment on above: Order Comment: Speci men Type: BLOOD SPECIMENOrdering Facility: [facility] Address: [address] [place] [address] Performed By: #### 5 7021-8 ####[facility] [id number] [place] [address] [place] Eosinophils (Bld) [#/Vol] 0.06 10*3/uL Normal <0.46 [facility] Comment on above: Order Comment: Speci men Type: BLOOD SPECIMENOrdering Facility: [facility] Address: [address] [place] [address] Performed By: #### 5 7021-8 ####[facility]ITALWNCLIA [id number] [place] [address] [place] Eosinophils/100 WBC (Bld) 0.9 % Normal [facility] Comment on above: Order Comment: Speci men Type: BLOOD SPECIMENOrdering Facility: [facility] Address: [address] [place] [address] Performed By: #### 5 7021-8 ####[facility]ITAL[facility]CL[facility] [id number] [place] [address] [place] Erythrocyte distribution width (RBC) [Ratio] 24.2 % High 11.5-15.0 [facility] Comment on above: Order Comment: Speci men Type: BLOOD SPECIMENOrdering Facility: [facility] Address: [address] [place] [address] Performed By: #### 5 7021-8 ####[facility] [id number] [place] [address] [place] Hematocrit (Bld) [Volume fraction] 26.9 % Low 39.0-51.0 [facility] Comment on above: Order Comment: Speci men Type: BLOOD SPECIMENOrdering Facility: [facility] Address: [address] [place] [address] Performed By: #### 5 7021-8 ####[facility] [id number] [place] [address] [place] Hemoglobin (Bld) [Mass/Vol] 8.9 g/dL Low 13.0-17.0 [facility] Comment on above: Order Comment: Speci men Type: BLOOD SPECIMENOrdering Facility: [facility] Address: [address] [place] [address] Performed By: #### 5 7021-8 ####[facility] [id number] [place] [address] [place] Immature granulocytes (Bld) [#/Vol] 0.03 10*3/uL Normal <0.10 [facility] Comment on above: Order Comment: Speci men Type: BLOOD SPECIMENOrdering Facility: [facility] Address: [address] [place] [address] Performed By: #### 5 7021-8 ####[facility]ITALNCL[facility] [id number] [place] [address] [place] Immature granulocytes/100 WBC (Bld) 0.5 % Normal [facility] Comment on above: Order Comment: Speci men Type: BLOOD SPECIMENOrdering Facility: [facility] Address: [address] [place] [address] Performed By: #### 5 7021-8 ####[facility]ITALMALENA [id number] [place] [address] [place] Lymphocytes (Bld) [#/Vol] 0.96 10*3/uL Low 1.00-4.00 [facility] Comment on above: Order Comment: Speci men Type: BLOOD SPECIMENOrdering Facility: [facility] [facility] Address: [address] [place] [address] Performed By: #### 5 7021-8 ####[facility] [id number] [place] [address] [place] Lymphocytes/100 WBC (Bld) 15.0 % Normal [facility] Comment on above: Order Comment: Speci men Type: BLOOD SPECIMENOrdering Facility: [facility] Address: [address] [place] [address] Performed By: #### 5 7021-8 ####[facility] HOSPITALMALENA [id number] [place] [address] [place] MCH (RBC) [Entitic mass] 35.9 pg High 26.0-34.0 [facility] Comment on above: Order Comment: Speci men Type: BLOOD SPECIMENOrdering Facility: [facility] Address: [address] [place] [address] Performed By: #### 5 7021-8 ####[facility]ITALNCLIA [id number] [place] [address] [place] MCHC (RBC) [Mass/Vol] 33.1 g/dL Normal 30.5-36.0 [facility] Comment on above: Order Comment: Speci men Type: BLOOD SPECIMENOrdering Facility: [facility] Address: [address] [place] [address] Performed By: #### 5 7021-8 ####[facility]ITALNCLIA [id number] [place] [address] [place] MCV (RBC) [Entitic vol] 108.5 fL High 80.0-100.0 [facility] Comment on above: Order Comment: Speci men Type: BLOOD SPECIMENOrdering Facility: [facility] Address: [address] [place] [address] Performed By: #### 5 7021-8 ####[facility] [id number] [place] [address] [place] Monocytes (Bld) [#/Vol] 0.98 10*3/uL High <0.87 [facility] Comment on above: Order Comment: Speci men Type: BLOOD SPECIMENOrdering Facility: [facility] Address: [address] [place] [address] Performed By: #### 5 7021-8 ####[facility] [id number] [place] [address] [place] Monocytes/100 WBC (Bld) 15.3 % Normal [facility] Comment on above: Order Comment: Speci men Type: BLOOD SPECIMENOrdering Facility: [facility] Address: [address] [place] [address] Performed By: #### 5 7021-8 ####[facility]OSPITALROBERTA [id number] [place] [address] [place] Neutrophils (Bld) [#/Vol] 4.33 10*3/uL Normal 1.45-7.50 [facility] Comment on above: Order Comment: Speci men Type: BLOOD SPECIMENOrdering Facility: [facility] Address: [address] [place] [address] Performed By: #### 5 7021-8 ####[facility] HOSPITALNCLI [id number] [place] [address] [place] Neutrophils/100 WBC (Bld) 67.4 % Normal [facility] Comment on above: Order Comment: Speci men Type: BLOOD SPECIMENOrdering Facility: [facility] Address: [address] [place] [address] Performed By: #### 5 7021-8 ####[facility]ITALNCVA [facility] [id number] [place] [address] [place] Nucleated RBC (Bld) [#/Vol] 0.06 10*3/uL High <0.01 [facility] Comment on above: Order Comment: Speci men Type: BLOOD SPECIMENOrdering Facility: [facility] Address: [address] [place] [address] Performed By: #### 5 7021-8 ####[facility]ITALN[facility] [id number] [place] [address] [place] Nucleated RBC/100 WBC (Bld) [Ratio] 0.9 /100 WBC Normal [facility] Comment on above: Order Comment: Speci men Type: BLOOD SPECIMENOrdering Facility: [facility] Address: [address] [place] [address] Performed By: #### 5 7021-8 ####[facility]ITALN[facility] [id number] [place] [address] [place] Platelet mean volume (Bld) [Entitic vol] 11.3 fL Normal 9.0-12.7 [facility] Comment on above: Order Comment: Speci men Type: BLOOD SPECIMENOrdering Facility: [facility] Address: [address] [place] [address] Performed By: #### 5 7021-8 ####[facility]ITALNCV[facility] [id number] [place] [address] [place] Platelets (Bld) [#/Vol] 311 10*3/uL Normal 150-400 [facility] Comment on above: Order Comment: Speci men Type: BLOOD SPECIMENOrdering Facility: [facility] Address: [address] [place] [address] Performed By: #### 5 7021-8 ####[facility] MARVA MIRANDAMALENA [id number] [place] [address] [place] RBC (Bld) [#/Vol] 2.48 10*6/uL Low 4.20-6.00 [facility] Comment on above: Order Comment: Speci men Type: BLOOD SPECIMENOrdering Facility: [facility] Address: [address] [place] [address] Performed By: #### 5 7021-8 ####[facility] JONHWilliamsMALENA [id number] [place] [address] [place] WBC (Bld) [#/Vol] 6.42 10*3/uL Normal 3.70-11.00 [facility] Comment on above: Order Comment: Speci men Type: BLOOD SPECIMENOrdering Facility: [facility] Address: [address] [place] [address] Performed By: #### 5 7021-8 ####[facility] JONHFOOSLANDMALENA [id number] [place] [address] [place] CNPNon 05-26-2025 CNPN Normal [facility] CNOVon 05-25-2025 CNOV Normal [facility] CNPNon 05-22-2025 CNPN Normal [facility] CBC W Auto Differential pane l (Bld)on 05-11-2025 Basophils (Bld) [#/Vol] 0.06 10*3/uL Normal <0.11 [facility] Comment on above: Order Comment: Speci men Type: BLOOD SPECIMENOrdering Facility: [facility] Address: [address] [place] [address] Performed By: #### 5 7021-8 ####[facility] MARVA RUBENNCRADHA [id number] [place] [address] [place] Basophils/100 WBC (Bld) 1.0 % Normal [facility] Comment on above: Order Comment: Speci men Type: BLOOD SPECIMENOrdering Facility: [facility] Address: [address] [place] [address] Performed By: #### 5 7021-8 ####[facility]ITALL[facility] [id number] [place] [address] [place] Differential cell count method Nom (Bld) Auto Normal [facility] Comment on above: Order Comment: Speci men Type: BLOOD SPECIMENOrdering Facility: [facility] Address: [address] [place] [address] Performed By: #### 5 7021-8 ####[facility] [id number] [place] [address] [place] Eosinophils (Bld) [#/Vol] 0.07 10*3/uL Normal <0.46 [facility] Comment on above: Order Comment: Speci men Type: BLOOD SPECIMENOrdering Facility: [facility] Address: [address] [place] [address] Performed By: #### 5 7021-8 ####[facility] [id number] [place] [address] [place] Eosinophils/100 WBC (Bld) 1.2 % Normal [facility] Comment on above: Order Comment: Speci men Type: BLOOD SPECIMENOrdering Facility: [facility] Address: [address] [place] [address] Performed By: #### 5 7021-8 ####[facility] [id number] [place] [address] [place] Erythrocyte distribution width (RBC) [Ratio] 23.8 % High 11.5-15.0 [facility] Comment on above: Order Comment: Speci men Type: BLOOD SPECIMENOrdering Facility: [facility] Address: [address] [place] [address] Performed By: #### 5 7021-8 ####[facility] [id number] [place] [address] [place] Hematocrit (Bld) [Volume fraction] 27.1 % Low 39.0-51.0 [facility] Comment on above: Order Comment: Speci men Type: BLOOD SPECIMENOrdering Facility: [facility] Address: [address] [place] [address] Performed By: #### 5 7021-8 ####[facility] [id number] [place] [address] [place] Hemoglobin (Bld) [Mass/Vol] 9.2 g/dL Low 13.0-17.0 [facility] Comment on above: Order Comment: Speci men Type: BLOOD SPECIMENOrdering Facility: [facility] Address: [address] [place] [address] Performed By: #### 5 7021-8 ####[facility] [id number] [place] [address] [place] Immature granulocytes (Bld) [#/Vol] 0.04 10*3/uL Normal <0.10 [facility] Comment on above: Order Comment: Speci men Type: BLOOD SPECIMENOrdering Facility: [facility] Address: [address] [place] [address] Performed By: #### 5 7021-8 ####[facility] [id number] [place] [address] [place] Immature granulocytes/100 WBC (Bld) 0.7 % Normal [facility] Comment on above: Order Comment: Speci men Type: BLOOD SPECIMENOrdering Facility: [facility] Address: [address] [place] [address] Performed By: #### 5 7021-8 ####[facility]ITALNCLIA [id number] [place] [address] [place] Lymphocytes (Bld) [#/Vol] 1.06 10*3/uL Normal 1.00-4.00 [facility] Comment on above: Order Comment: Speci men Type: BLOOD SPECIMENOrdering Facility: [facility] Address: [address] [place] [address] Performed By: #### 5 7021-8 ####[facility] [id number] [place] [address] [place] Lymphocytes/100 WBC (Bld) 17.5 % Normal [facility] Comment on above: Order Comment: Speci men Type: BLOOD SPECIMENOrdering Facility: [facility] Address: [address] [place] [address] Performed By: #### 5 7021-8 ####[facility] [id number] [place] [address] [place] MCH (RBC) [Entitic mass] 36.7 pg High 26.0-34.0 [facility] Comment on above: Order Comment: Speci men Type: BLOOD SPECIMENOrdering Facility: [facility] Address: [address] [place] [address] Performed By: #### 5 7021-8 ####[facility] [id number] [place] [address] [place] MCHC (RBC) [Mass/Vol] 33.9 g/dL Normal 30.5-36.0 [facility] Comment on above: Order Comment: Speci men Type: BLOOD SPECIMENOrdering Facility: [facility] Address: [address] [place] [address] Performed By: #### 5 7021-8 ####[facility]OS[facility]ITALNCLI [id number] [place] [address] [place] MCV (RBC) [Entitic vol] 108.0 fL High 80.0-100.0 [facility] Comment on above: Order Comment: Speci men Type: BLOOD SPECIMENOrdering Facility: [facility] Address: [address] [place] [address] Performed By: #### 5 7021-8 ####[facility] [id number] [place] [address] [place] Monocytes (Bld) [#/Vol] 0.77 10*3/uL Normal <0.87 [facility] Comment on above: Order Comment: Speci men Type: BLOOD SPECIMENOrdering Facility: [facility] Address: [address] [place] [address] Performed By: #### 5 7021-8 ####[facility] [id number] [place] [address] [place] Monocytes/100 WBC (Bld) 12.7 % Normal [facility] Comment on above: Order Comment: Speci men Type: BLOOD SPECIMENOrdering Facility: [facility] Address: [address] [place] [address] Performed By: #### 5 7021-8 ####[facility] [id number] [place] [address] [place] Neutrophils (Bld) [#/Vol] 4.06 10*3/uL Normal 1.45-7.50 [facility] Comment on above: Order Comment: Speci men Type: BLOOD SPECIMENOrdering Facility: [facility] Address: [address] [place] [address] Performed By: #### 5 7021-8 ####[facility] [id number] [place] [address] [place] Neutrophils/100 WBC (Bld) 66.9 % Normal [facility] Comment on above: Order Comment: Speci men Type: BLOOD SPECIMENOrdering Facility: [facility] Address: [address] [place] [address] Performed By: #### 5 7021-8 ####[facility] JONHFOOSLANDMALENA [id number] [place] [address] [place] Nucleated RBC (Bld) [#/Vol] 0.06 10*3/uL High <0.01 [facility] Comment on above: Order Comment: Speci men Type: BLOOD SPECIMENOrdering Facility: [facility] Address: [address] [place] [address] Performed By: #### 5 7021-8 ####[facility] [id number] [place] [address] [place] Nucleated RBC/100 WBC (Bld) [Ratio] 1.0 /100 WBC Normal [facility] Comment on above: Order Comment: Speci men Type: BLOOD SPECIMENOrdering Facility: [facility] Address: [address] [place] [address] Performed By: #### 5 7021-8 ####[facility]OSPITALL[facility] [id number] [place] [address] [place] Platelet mean volume (Bld) [Entitic vol] 12.3 fL Normal 9.0-12.7 [facility] Comment on above: Order Comment: Speci men Type: BLOOD SPECIMENOrdering Facility: [facility] Address: [address] [place] [address] Performed By: #### 5 7021-8 ####[facility]ITALNCLIA [id number] [place] [address] [place] Platelets (Bld) [#/Vol] 231 10*3/uL Normal 150-400 [facility] Comment on above: Order Comment: Speci men Type: BLOOD SPECIMENOrdering Facility: [facility] Address: [address] [place] [address] Performed By: #### 5 7021-8 ####[facility]OSPITALLIA [id number] [place] [address] [place] RBC (Bld) [#/Vol] 2.51 10*6/uL Low 4.20-6.00 [facility] Comment on above: Order Comment: Speci men Type: BLOOD SPECIMENOrdering Facility: [facility] Address: [address] [place] [address] Performed By: #### 5 7021-8 ####[facility] HOSPITALKOSTAA [id number] [place] [address] [place] WBC (Bld) [#/Vol] 6.06 10*3/uL Normal 3.70-11.00 [facility] Comment on above: Order Comment: Speci men Type: BLOOD SPECIMENOrdering Facility: [facility] Address: [address] [place] [address] Performed By: #### 5 7021-8 ####[facility] [id number] [place] [address] [place] CNPNon 05-05-2025 CNPN Normal [facility] CBC W Auto Differential pane l (Bld)on 04-28-2025 Basophils (Bld) [#/Vol] 0.06 10*3/uL Normal <0.11 [facility] Comment on above: Order Comment: Speci men Type: BLOOD SPECIMENOrdering Facility: [facility] Address: [address] [place] [address] Performed By: #### 5 7021-8 ####[facility]PITALL[facility] [id number] [place] [address] [place] Basophils/100 WBC (Bld) 1.0 % Normal [facility] Comment on above: Order Comment: Speci men Type: BLOOD SPECIMENOrdering Facility: [facility] Address: [address] [place] [address] Performed By: #### 5 7021-8 ####[facility] JONHSOLIA [id number] [place] [address] [place] Differential cell count method Nom (Bld) Auto Normal [facility] Comment on above: Order Comment: Speci men Type: BLOOD SPECIMENOrdering Facility: [facility] Address: [address] [place] [address] Performed By: #### 5 7021-8 ####[facility]ITALROBERTVA [facility]OSPITAL [id number] [place] [address] [place] Eosinophils (Bld) [#/Vol] 0.11 10*3/uL Normal <0.46 [facility] Comment on above: Order Comment: Speci men Type: BLOOD SPECIMENOrdering Facility: [facility] Address: [address] [place] [address] Performed By: #### 5 7021-8 ####[facility] [id number] [place] [address] [place] Eosinophils/100 WBC (Bld) 1.7 % Normal [facility] Comment on above: Order Comment: Speci men Type: BLOOD SPECIMENOrdering Facility: [facility] Address: [address] [place] [address] Performed By: #### 5 7021-8 ####[facility] [id number] [place] [address] [place] Erythrocyte distribution width (RBC) [Ratio] 22.5 % High 11.5-15.0 [facility] Comment on above: Order Comment: Speci men Type: BLOOD SPECIMENOrdering Facility: [facility] Address: [address] [place] [address] Performed By: #### 5 7021-8 ####[facility] HOSPITALNCLI [id number] [place] [address] [place] Hematocrit (Bld) [Volume fraction] 28.9 % Low 39.0-51.0 [facility] Comment on above: Order Comment: Speci men Type: BLOOD SPECIMENOrdering Facility: [facility] Address: [address] [place] [address] Performed By: #### 5 7021-8 ####[facility] [id number] [place] [address] [place] Hemoglobin (Bld) [Mass/Vol] 9.7 g/dL Low 13.0-17.0 [facility] Comment on above: Order Comment: Speci men Type: BLOOD SPECIMENOrdering Facility: [facility] Address: [address] [place] [address] Performed By: #### 5 7021-8 ####[facility] [id number] [place] [address] [place] Immature granulocytes (Bld) [#/Vol] 10*3/uL Normal <0.10 [facility] Comment on above: Order Comment: Speci men Type: BLOOD SPECIMENOrdering Facility: [facility] Address: [address] [place] [address] Performed By: #### 5 7021-8 ####[facility] [id number] [place] [address] [place] Immature granulocytes/100 WBC (Bld) 0.3 % Normal [facility] Comment on above: Order Comment: Speci men Type: BLOOD SPECIMENOrdering Facility: [facility] Address: [address] [place] [address] Performed By: #### 5 7021-8 ####[facility] [id number] [place] [address] [place] Lymphocytes (Bld) [#/Vol] 1.11 10*3/uL Normal 1.00-4.00 [facility] Comment on above: Order Comment: Speci men Type: BLOOD SPECIMENOrdering Facility: [facility] Address: [address] [place] [address] Performed By: #### 5 7021-8 ####[facility] HOSPITALNCCONSTANCEA [id number] [place] [address] [place] [facility] Lymphocytes/100 WBC (Bld) 17.6 % Normal [facility] Comment on above: Order Comment: Speci men Type: BLOOD SPECIMENOrdering Facility: [facility] Address: [address] [place] [address] Performed By: #### 5 7021-8 ####[facility] [id number] [place] [address] [place] MCH (RBC) [Entitic mass] 35.8 pg High 26.0-34.0 [facility] Comment on above: Order Comment: Speci men Type: BLOOD SPECIMENOrdering Facility: [facility] Address: [address] [place] [address] Performed By: #### 5 7021-8 ####[facility] HOSPITALNCA [id number] [place] [address] [place] MCHC (RBC) [Mass/Vol] 33.6 g/dL Normal 30.5-36.0 [facility] Comment on above: Order Comment: Speci men Type: BLOOD SPECIMENOrdering Facility: [facility] Address: [address] [place] [address] Performed By: #### 5 7021-8 ####[facility] [id number] [place] [address] [place] MCV (RBC) [Entitic vol] 106.6 fL High 80.0-100.0 [facility] Comment on above: Order Comment: Speci men Type: BLOOD SPECIMENOrdering Facility: [facility] Address: [address] [place] [address] Performed By: #### 5 7021-8 ####[facility] [id number] [place] [address] [place] Monocytes (Bld) [#/Vol] 0.90 10*3/uL High <0.87 [facility] Comment on above: Order Comment: Speci men Type: BLOOD SPECIMENOrdering Facility: [facility] Address: [address] [place] [address] Performed By: #### 5 7021-8 ####[facility] [id number] [place] [address] [place] Monocytes/100 WBC (Bld) 14.3 % Normal [facility] Comment on above: Order Comment: Speci men Type: BLOOD SPECIMENOrdering Facility: [facility] Address: [address] [place] [address] Performed By: #### 5 7021-8 ####[facility] [id number] [place] [address] [place] Neutrophils (Bld) [#/Vol] 4.09 10*3/uL Normal 1.45-7.50 [facility] Comment on above: Order Comment: Speci men Type: BLOOD SPECIMENOrdering Facility: [facility] Address: [address] [place] [address] Performed By: #### 5 7021-8 ####[facility] [id number] [place] [address] [place] Neutrophils/100 WBC (Bld) 65.1 % Normal [facility] Comment on above: Order Comment: Speci men Type: BLOOD SPECIMENOrdering Facility: [facility] Address: [address] [place] [address] Performed By: #### 5 7021-8 ####[facility]PITALL[facility] [id number] [place] [address] [place] Nucleated RBC (Bld) [#/Vol] 10*3/uL Normal <0.01 [facility] Comment on above: Order Comment: Speci men Type: BLOOD SPECIMENOrdering Facility: [facility] Address: [address] [place] [address] Performed By: #### 5 7021-8 ####[facility]ITALNCLI [id number] [place] [address] [place] Nucleated RBC/100 WBC (Bld) [Ratio] 0.0 /100 WBC Normal [facility] Comment on above: Order Comment: Speci men Type: BLOOD SPECIMENOrdering Facility: [facility] Address: [address] [place] [address] Performed By: #### 5 7021-8 ####[facility]ITALNCLI [id number] [place] [address] [place] Platelet mean volume (Bld) [Entitic vol] 12.3 fL Normal 9.0-12.7 [facility] Comment on above: Order Comment: Speci men Type: BLOOD SPECIMENOrdering Facility: [facility] Address: [address] [place] [address] Performed By: #### 5 7021-8 ####[facility]ITALNCLIA [id number] [place] [address] [place] Platelets (Bld) [#/Vol] 266 10*3/uL Normal 150-400 [facility] Comment on above: Order Comment: Speci men Type: BLOOD SPECIMENOrdering Facility: [facility] Address: [address] [place] [address] Performed By: #### 5 7021-8 ####[facility] [id number] [place] [address] [place] RBC (Bld) [#/Vol] 2.71 10*6/uL Low 4.20-6.00 [facility] Comment on above: Order Comment: Speci men Type: BLOOD SPECIMENOrdering Facility: [facility] Address: [address] [place] [address] Performed By: #### 5 7021-8 ####[facility] RUBENMALENA [id number] [place] [address] [place] WBC (Bld) [#/Vol] 6.29 10*3/uL Normal 3.70-11.00 [facility] Comment on above: Order Comment: Speci men Type: BLOOD SPECIMENOrdering Facility: [facility] Address: [address] [place] [address] Performed By: #### 5 7021-8 ####[facility] JONHJUAN JOSE [id number] [place] [address] [place] Basic metabolic 2000 panelon 04-14-2025 Anion gap [Moles/Vol] 13 mmol/L Normal 8-15 [facility] Comment on above: Order Comment: Speci men Type: BLOOD SPECIMENOrdering Facility: [facility] Address: [address] [place] [address] Performed By: #### 2 4321-2 ####[facility] JONHFOOSLANDMALENA [id number] [place] [address] [place] Calcium [Mass/Vol] 9.4 mg/dL Normal 8.5-10.2 [facility] Comment on above: Order Comment: Speci men Type: BLOOD SPECIMENOrdering Facility: [facility] Address: [address] [place] [address] Performed By: #### 2 4321-2 ####[facility] JONHFOOSLANDKOSTAA [id number] [place] [address] [place] Chloride [Moles/Vol] 92 mmol/L Low 98-107 [facility] Comment on above: Order Comment: Speci men Type: BLOOD SPECIMENOrdering Facility: [facility] Address: [address] [place] [address] Performed By: #### 2 4321-2 ####[facility]OSPITALWNCLIA [id number] [place] [address] [place] CO2 [Moles/Vol] 31 mmol/L High 22-30 [facility] Comment on above: Order Comment: Speci men Type: BLOOD SPECIMENOrdering Facility: [facility] Address: [address] [place] [address] Performed By: #### 2 4321-2 ####[facility] [id number] [place] [address] [place] Creatinine [Mass/Vol] 1.19 mg/dL Normal 0.73-1.22 [facility] Comment on above: Order Comment: Speci men Type: BLOOD SPECIMENOrdering Facility: [facility] Address: [address] [place] [address] Performed By: #### 2 4321-2 ####[facility] [id number] [place] [address] [place] Creatinine and Glomerular filtration rate.predicted panel (S/P/Bld) 58 mL/min/1.73m??? Low >=60 [facility] Comment on above: Order Comment: Speci men Type: BLOOD SPECIMENOrdering Facility: [facility] Address: [address] [place] [address] Result Comment: Concepción mated Glomerular Filtration Rate [...] Performed By: #### 2 4321-2 ####[facility]OSPITALWNCLIA [id number] [place] [address] [place] Glucose [Mass/Vol] 145 mg/dL High 74-99 [facility] Comment on above: Order Comment: Speci men Type: BLOOD SPECIMENOrdering Facility: [facility] Address: [address] [place], [place] [address] Result Comment: The Citizen Of [place] Diabetes Association (ADA) provides guidance for cutoff [...] Standards of Medical Care in Diabetes 2016, Citizen Of [place] Diabetes Association. Diabetes Care. 2016.39(Suppl 1). Performed By: #### 2 4321-2 ####[facility]PITALWOLMSTED MEDICAL CENTERA [id number] [place] [address] [place] Potassium [Moles/Vol] 4.3 mmol/L Normal 3.7-5.1 [facility] Comment on above: Order Comment: Speci men Type: BLOOD SPECIMENOrdering Facility: [facility] Address: [address] [place] [address] Performed By: #### 2 4321-2 ####[facility] HOSPITALWNJLIA [id number] [place] [address] [place] Sodium [Moles/Vol] 136 mmol/L Normal 136-144 [facility] Comment on above: Order Comment: Speci men Type: BLOOD SPECIMENOrdering Facility: [facility] Address: [address] [place], [place] [address] Performed By: #### 2 4321-2 ####[facility]OSPITALLIA [id number] [place] [address] [place] Urea nitrogen [Mass/Vol] 37 mg/dL High 9-24 [facility] Comment on above: Order Comment: Speci men Type: BLOOD SPECIMENOrdering Facility: [facility] Address: [address] [place] [address] Performed By: #### 2 4321-2 ####[facility] HOSPITALKOSTAA [id number] [place] [address] [place] CBC W Auto Differential pane l (Bld)on 04-14-2025 Basophils (Bld) [#/Vol] 0.06 10*3/uL Normal <0.11 [facility] Comment on above: Order Comment: Speci men Type: BLOOD SPECIMENOrdering Facility: [facility] Address: [address] [place] [address] Performed By: #### 5 7021-8 ####[facility] [id number] [place] [address] [place] Basophils/100 WBC (Bld) 1.0 % Normal [facility] Comment on above: Order Comment: Speci men Type: BLOOD SPECIMENOrdering Facility: [facility] Address: [address] [place] [address] Performed By: #### 5 7021-8 ####[facility] HOSPITALROBERTA [id number] [place] [address] [place] Differential cell count method Nom (Bld) Auto Normal [facility] Comment on above: Order Comment: Speci men Type: BLOOD SPECIMENOrdering Facility: [facility] Address: [address] [place] [address] Performed By: #### 5 7021-8 ####[facility] EASTA [id number] [place] [address] [place] Eosinophils (Bld) [#/Vol] 0.07 10*3/uL Normal <0.46 [facility] Comment on above: Order Comment: Speci men Type: BLOOD SPECIMENOrdering Facility: [facility] Address: [address] [place] [address] Performed By: #### 5 7021-8 ####[facility] MILLWROBERTLIA [id number] [place] [address] [place] Eosinophils/100 WBC (Bld) 1.2 % Normal [facility] Comment on above: Order Comment: Speci men Type: BLOOD SPECIMENOrdering Facility: [facility] Address: [address] [place] [address] Performed By: #### 5 7021-8 ####[facility] HOSPITALROBERTLIA [id number] [place] [address] [place] Erythrocyte distribution width (RBC) [Ratio] 21.8 % High 11.5-15.0 [facility] Comment on above: Order Comment: Speci men Type: BLOOD SPECIMENOrdering Facility: [facility] Address: [address] [place] [address] Performed By: #### 5 7021-8 ####[facility] HOSPITALKOSTAA [id number] [place] [address] [place] Hematocrit (Bld) [Volume fraction] 30.8 % Low 39.0-51.0 [facility] Comment on above: Order Comment: Speci men Type: BLOOD SPECIMENOrdering Facility: [facility] Address: [address] [place] [address] Performed By: #### 5 7021-8 ####[facility] HOSPITALROBERTLIA [id number] [place] [address] [place] Hemoglobin (Bld) [Mass/Vol] 10.3 g/dL Low 13.0-17.0 [facility] Comment on above: Order Comment: Speci men Type: BLOOD SPECIMENOrdering Facility: [facility] Address: [address] [place] [address] Performed By: #### 5 7021-8 ####[facility] HOSPITALNCLIA [id number] [place] [address] [place] Immature granulocytes (Bld) [#/Vol] 10*3/uL Normal <0.10 [facility] Comment on above: Order Comment: Speci men Type: BLOOD SPECIMENOrdering Facility: [facility] Address: [address] [place] [address] Performed By: #### 5 7021-8 ####[facility]ITALNCVA HOSPITAL [id number] [place] [address] [place] Immature granulocytes/100 WBC (Bld) 0.3 % Normal [facility] Comment on above: Order Comment: Speci men Type: BLOOD SPECIMENOrdering Facility: [facility] Address: [address] [place] [address] Performed By: #### 5 7021-8 ####[facility] HOSPITALNCLI [id number] [place] [address] [place] Lymphocytes (Bld) [#/Vol] 1.01 10*3/uL Normal 1.00-4.00 [facility] Comment on above: Order Comment: Speci men Type: BLOOD SPECIMENOrdering Facility: [facility] Address: [address] [place] [address] Performed By: #### 5 7021-8 ####[facility] HOSPITALNCLIA [id number] [place] [address] [place] Lymphocytes/100 WBC (Bld) 17.6 % Normal [facility] Comment on above: Order Comment: Speci men Type: BLOOD SPECIMENOrdering Facility: [facility] Address: [address] [place] [address] Performed By: #### 5 7021-8 ####[facility] HOSPITALNCLIA [id number] [place] [address] [place] MCH (RBC) [Entitic mass] 36.4 pg High 26.0-34.0 [facility] Comment on above: Order Comment: Speci men Type: BLOOD SPECIMENOrdering Facility: [facility] Address: [address] [place] [address] Performed By: #### 5 7021-8 ####[facility] HASEEB [id number] [place] [address] [place] MCHC (RBC) [Mass/Vol] 33.4 g/dL Normal 30.5-36.0 [facility] Comment on above: Order Comment: Speci men Type: BLOOD SPECIMENOrdering Facility: [facility] Address: [address] [place] [address] Performed By: #### 5 7021-8 ####[facility] HOSPITALMALENA [id number] [place] [address] [place] MCV (RBC) [Entitic vol] 108.8 fL High 80.0-100.0 [facility] Comment on above: Order Comment: Speci men Type: BLOOD SPECIMENOrdering Facility: [facility] Address: [address] [place] [address] Performed By: #### 5 7021-8 ####[facility] HOSPITALMALENA [id number] [place] [address] [place] Monocytes (Bld) [#/Vol] 0.85 10*3/uL Normal <0.87 [facility] Comment on above: Order Comment: Speci men Type: BLOOD SPECIMENOrdering Facility: [facility] Address: [address] [place] [address] Performed By: #### 5 7021-8 ####[facility] HOSPITALKOSTAA [id number] [place] [address] [place] Monocytes/100 WBC (Bld) 14.8 % Normal [facility] Comment on above: Order Comment: Speci men Type: BLOOD SPECIMENOrdering Facility: [facility] Address: [address] [place] [address] Performed By: #### 5 7021-8 ####[facility] MILLWNCLIA [id number] [place] [address] [place] Neutrophils (Bld) [#/Vol] 3.74 10*3/uL Normal 1.45-7.50 [facility] Comment on above: Order Comment: Speci men Type: BLOOD SPECIMENOrdering Facility: [facility] Address: [address] [place] [address] Performed By: #### 5 7021-8 ####[facility]OSPITALLIA [id number] [place] [address] [place] Neutrophils/100 WBC (Bld) 65.1 % Normal [facility] Comment on above: Order Comment: Speci men Type: BLOOD SPECIMENOrdering Facility: [facility] Address: [address] [place] [address] Performed By: #### 5 7021-8 ####[facility]OSPITALLIA [id number] [place] [address] [place] Nucleated RBC (Bld) [#/Vol] 0.02 10*3/uL High <0.01 [facility] Comment on above: Order Comment: Speci men Type: BLOOD SPECIMENOrdering Facility: [facility] Address: [address] [place] [address] Performed By: #### 5 7021-8 ####[facility]OSPITALLIA [id number] [place] [address] [place] Nucleated RBC/100 WBC (Bld) [Ratio] 0.3 /100 WBC Normal [facility] Comment on above: Order Comment: Speci men Type: BLOOD SPECIMENOrdering Facility: [facility] Address: [address] [place] [address] Performed By: #### 5 7021-8 ####[facility] HOSPITALNCLIA [id number] [place] [address] [place] Platelet mean volume (Bld) [Entitic vol] 11.6 fL Normal 9.0-12.7 [facility] Comment on above: Order Comment: Speci men Type: BLOOD SPECIMENOrdering Facility: [facility] Address: [address] [place] [address] Performed By: #### 5 7021-8 ####[facility] FLAG[facility] HOSPITALNCA [id number] [place] [address] [place] Platelets (Bld) [#/Vol] 250 10*3/uL Normal 150-400 [facility] Comment on above: Order Comment: Speci men Type: BLOOD SPECIMENOrdering Facility: [facility] Address: [address] [place] [address] Performed By: #### 5 7021-8 ####[facility]ITALNCVA HOSPITAL [id number] [place] [address] [place] RBC (Bld) [#/Vol] 2.83 10*6/uL Low 4.20-6.00 [facility] Comment on above: Order Comment: Speci men Type: BLOOD SPECIMENOrdering Facility: [facility] Address: [address] [place] [address] Performed By: #### 5 7021-8 ####[facility] FLAG[facility] HOSPITALNCA [id number] [place] [address] [place] WBC (Bld) [#/Vol] 5.75 10*3/uL Normal 3.70-11.00 [facility] Comment on above: Order Comment: Speci men Type: BLOOD SPECIMENOrdering Facility: [facility] Address: [address] [place] [address] Performed By: #### 5 7021-8 ####[facility] HOSPITALNCLIA [id number] [place] [address] [place] CNOVon 04-07-2025 CNOV Office Visit ([id number] ) -- SRINI LUIS ([id number]) 1935 M Date Time Provider Department 04/07/25 11:40 AM IRAM JOHNSON [id number] During your visit today, we recorded the following information about you: Pulse Blood pressure Weight Height 83/minute 130/68 78.5 kg 1.702 m Iram Johnson, PRODUCT DEVELOPMENT MANAGER.[facility] 04/07/2025 11:40 AM Signed [facility] CARDIOLOGY Ronaldo Pleitez MD SUBJECTIVE: Srini [...] to chronic myelomonocytic leukemia treated with erythropoietin ([facility]) 11/16/2024 B12 deficiency 07/11/2020 Benign hypertension CAD (coronary artery disease) CHB (complete heart block) ([facility]) 09/17/2022 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 and now Bilateral BBB; Confirmed Blk below His by His Bundle Electrogram Chronic atrial fibrillation ([facility]) 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 ([facility]) 12/01/2022 CVA (cerebral vascular accident) ([facility]) 08/22/2022 Diverticulosis H/O echocardiogram 09/16/2022 EF 68?5 %, mod concentric LVH, mod TR, mild-mod MR with mod MAC History of anemia History of CVA (cerebrovascular accident) 08/22/2022 Pontine infarction, R>L History of stress test 10/12/2024 EF 43%, mild ischemia involving the apex 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 [...] RIGHT OP SURGERY Right 12/18/2020 Dr Arreola [facility] ARTHROPLASTY TOTAL SHOULDER 11/09/2008 right ARTHROSCOPY OF [...] mouth once vivian (more content not included)... [facility] CNOV Office Visit ([id number] ) -- SRINI LUIS ([id number]) 1935 M Date Time Provider Department 04/07/25 11:00 AM [facility] [id number] During your visit today, we recorded the following information about you: Allergies As of Date: 04/07/2025 Noted Allergy Reaction SIMVASTATIN 08/17/2012 14 - Other: See Comments Comments: Elevated CK Date Reviewed: 04/07/2025 Reviewed by: Iram Johnson, PRODUCT DEVELOPMENT MANAGER.TELEPHONE ORDER SUPERVISOR - Fully Assessed Reason for Visit: Permanent Pacemaker [1364] Visit Diagnosis:Pacemaker reprogramming/check [Z45.018] Order(s):CARDIAC IMPLANTABLE DEVICE CHECK [6717912] Order #: [id number] FUTURE CARDIAC IMPLANTABLE DEVICE CHECK [[id number]] Order #: [id number]. 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 Normal [facility] ECG COMPLETEon 04-07-2025 ECG COMPLETE Ventricular Rate : 8 3 BPM Atrial Rate : 85 BPM QRS Duration : 164 ms Q-T Interval : 478 ms QTC Calculation(Bazett) : 561 ms Calculated R Calhoun : 264 degrees Calculated T [place] : 59 degrees Sinus rhythm 1st degree AV block Right bundle branch block Premature ventricular complexes Abnormal ECG When compared with ECG of 18-Sep-2022 06:17, 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 Confirmed by OSCAR GUTIERREZ MD ([id number]) on 04/15/2025 11:39:30 AM NAME : SRINI LUIS PID : [id number] : 1935 Gender : Male Race : ORD : [id number] Procedure Date : Apr 07 2025 11:13:14 Edit Date : Apr 15 2025 11:39:31 Diagnosis: Sinus rhythm 1st degree AV block Right bundle branch block Premature ventricular complexes Abnormal ECG When compared with ECG of 18-Sep-2022 06:17, 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 Confirmed by OSCAR GUTIERREZ MD ([id number]) on 04/15/2025 11:39:30 AM Test Reason : Location : 201 : [facility] Overread By : OSCAR GUTIERREZ MD Edited By : OSCAR GUTIERREZ MD Referred By : , Acquired by : ruba, [facility] CNPNon 04-05-2025 CNPN Normal [facility] CBC W Auto Differential pane l (Bld)on 03-31-2025 Basophils (Bld) [#/Vol] 0.04 10*3/uL Normal <0.11 [facility] Comment on above: Order Comment: Speci men Type: BLOOD SPECIMENOrdering Facility: [facility] Address: [address] [place] [address] Performed By: #### 5 7021-8 ####[facility] [id number] [place] [address] [place] Basophils/100 WBC (Bld) 0.8 % Normal [facility] Comment on above: Order Comment: Speci men Type: BLOOD SPECIMENOrdering Facility: [facility] Address: [address] [place] [address] Performed By: #### 5 7021-8 ####[facility] [id number] [place] [address] [place] Differential cell count method Nom (Bld) Auto Normal [facility] Comment on above: Order Comment: Speci men Type: BLOOD SPECIMENOrdering Facility: [facility] Address: [address] [place] [address] Performed By: #### 5 7021-8 ####[facility] [id number] [place] [address] [place] Eosinophils (Bld) [#/Vol] 0.11 10*3/uL Normal <0.46 [facility] Comment on above: Order Comment: Speci men Type: BLOOD SPECIMENOrdering Facility: [facility] Address: [address] [place] [address] Performed By: #### 5 7021-8 ####[facility] [id number] [place] [address] [place] Eosinophils/100 WBC (Bld) 2.1 % Normal [facility] Comment on above: Order Comment: Speci men Type: BLOOD SPECIMENOrdering Facility: [facility] Address: [address] [place] [address] Performed By: #### 5 7021-8 ####[facility] [id number] [place] [address] [place] Erythrocyte distribution width (RBC) [Ratio] 22.5 % High 11.5-15.0 [facility] Comment on above: Order Comment: Speci men Type: BLOOD SPECIMENOrdering Facility: [facility] Address: [address] [place] [address] Performed By: #### 5 7021-8 ####[facility] [id number] [place] [address] [place] Hematocrit (Bld) [Volume fraction] 26.4 % Low 39.0-51.0 [facility] Comment on above: Order Comment: Speci men Type: BLOOD SPECIMENOrdering Facility: [facility] Address: [address] [place] [address] Performed By: #### 5 7021-8 ####[facility] [id number] [place] [address] [place] Hemoglobin (Bld) [Mass/Vol] 9.0 g/dL Low 13.0-17.0 [facility] Comment on above: Order Comment: Speci men Type: BLOOD SPECIMENOrdering Facility: [facility] Address: [address] [place] [address] Performed By: #### 5 7021-8 ####[facility] MILLTOWNCLIA [id number] [place] [address] [place] Immature granulocytes (Bld) [#/Vol] 10*3/uL Normal <0.10 [facility] Comment on above: Order Comment: Speci men Type: BLOOD SPECIMENOrdering Facility: [facility] Address: [address] [place] [address] Performed By: #### 5 7021-8 ####[facility]ITALWNCLIA [id number] [place] [address] [place] Immature granulocytes/100 WBC (Bld) 0.4 % Normal [facility] Comment on above: Order Comment: Speci men Type: BLOOD SPECIMENOrdering Facility: [facility] Address: [address] [place] [address] Performed By: #### 5 7021-8 ####[facility]ITALWNCLIA [id number] [place] [address] [place] Lymphocytes (Bld) [#/Vol] 1.12 10*3/uL Normal 1.00-4.00 [facility] Comment on above: Order Comment: Speci men Type: BLOOD SPECIMENOrdering Facility: [facility] Address: [address] [place] [address] Performed By: #### 5 7021-8 ####[facility] MILLTOWNCLIA [id number] [place] [address] [place] Lymphocytes/100 WBC (Bld) 21.4 % Normal [facility] Comment on above: Order Comment: Speci men Type: BLOOD SPECIMENOrdering Facility: [facility] Address: [address] [place] [address] Performed By: #### 5 7021-8 ####[facility] MILLTOWNCLIA [id number] [place] [address] [place] MCH (RBC) [Entitic mass] 37.5 pg High 26.0-34.0 [facility] Comment on above: Order Comment: Speci men Type: BLOOD SPECIMENOrdering Facility: [facility] Address: [address] [place] [address] Performed By: #### 5 7021-8 ####[facility] [id number] [place] [address] [place] MCHC (RBC) [Mass/Vol] 34.1 g/dL Normal 30.5-36.0 [facility] Comment on above: Order Comment: Speci men Type: BLOOD SPECIMENOrdering Facility: [facility] Address: [address] [place] [address] Performed By: #### 5 7021-8 ####[facility] [id number] [place] [address] [place] MCV (RBC) [Entitic vol] 110.0 fL High 80.0-100.0 [facility] Comment on above: Order Comment: Speci men Type: BLOOD SPECIMENOrdering Facility: [facility] Address: [address] [place] [address] Performed By: #### 5 7021-8 ####[facility] [id number] [place] [address] [place] Monocytes (Bld) [#/Vol] 0.70 10*3/uL Normal <0.87 [facility] Comment on above: Order Comment: Speci men Type: BLOOD SPECIMENOrdering Facility: [facility] Address: [address] [place] [address] Performed By: #### 5 7021-8 ####[facility] [id number] [place] [address] [place] Monocytes/100 WBC (Bld) 13.4 % Normal [facility] Comment on above: Order Comment: Speci men Type: BLOOD SPECIMENOrdering Facility: [facility] Address: [address] [place] [address] Performed By: #### 5 7021-8 ####[facility] [id number] [place] [address] [place] Neutrophils (Bld) [#/Vol] 3.24 10*3/uL Normal 1.45-7.50 [facility] Comment on above: Order Comment: Speci men Type: BLOOD SPECIMENOrdering Facility: [facility] Address: [address] [place] [address] Performed By: #### 5 7021-8 ####[facility] [id number] [place] [address] [place] Neutrophils/100 WBC (Bld) 61.9 % Normal [facility] Comment on above: Order Comment: Speci men Type: BLOOD SPECIMENOrdering Facility: [facility] Address: [address] [place] [address] Performed By: #### 5 7021-8 ####[facility] [id number] [place] [address] [place] Nucleated RBC (Bld) [#/Vol] 0.02 10*3/uL High <0.01 [facility] Comment on above: Order Comment: Speci men Type: BLOOD SPECIMENOrdering Facility: [facility] Address: [address] [place] [address] Performed By: #### 5 7021-8 ####[facility] [id number] [place] [address] [place] Nucleated RBC/100 WBC (Bld) [Ratio] 0.4 /100 WBC Normal [facility] Comment on above: Order Comment: Speci men Type: BLOOD SPECIMENOrdering Facility: [facility] Address: [address] [place] [address] Performed By: #### 5 7021-8 ####[facility] [id number] [place] [address] [place] Platelet mean volume (Bld) [Entitic vol] 11.4 fL Normal 9.0-12.7 [facility] Comment on above: Order Comment: Speci men Type: BLOOD SPECIMENOrdering Facility: [facility] Address: [address] [place] [address] Performed By: #### 5 7021-8 ####[facility]OSPITALMALENA [id number] [place] [address] [place] Platelets (Bld) [#/Vol] 240 10*3/uL Normal 150-400 [facility] Comment on above: Order Comment: Speci men Type: BLOOD SPECIMENOrdering Facility: [facility] Address: [address] [place] [address] Performed By: #### 5 7021-8 ####[facility]OS[facility]ITALMALENA [id number] [place] [address] [place] RBC (Bld) [#/Vol] 2.40 10*6/uL Low 4.20-6.00 [facility] Comment on above: Order Comment: Speci men Type: BLOOD SPECIMENOrdering Facility: [facility] Address: [address] [place] [address] Performed By: #### 5 7021-8 ####[facility] [id number] [place] [address] [place] WBC (Bld) [#/Vol] 5.23 10*3/uL Normal 3.70-11.00 [facility] Comment on above: Order Comment: Speci men Type: BLOOD SPECIMENOrdering Facility: [facility] Address: [address] [place] [address] Performed By: #### 5 7021-8 ####[facility] MILLTOWNCLIA [id number] [place] [address] [place] CNOVSPon 03-31-2025 CNOVSP Normal [facility] Comprehensive metabolic 2000 panelon 03-31-2025 Albumin [Mass/Vol] 4.1 g/dL Normal 3.9-4.9 [facility] Comment on above: Order Comment: Speci men Type: BLOOD SPECIMENOrdering Facility: [facility] Address: [address] [place] [address] Performed By: #### 2 4323-8 ####[facility] MILLTOWNCLIA [id number] [place] [address] [place] ALP [Catalytic activity/Vol] 64 U/L Normal 38-113 [facility] Comment on above: Order Comment: Speci men Type: BLOOD SPECIMENOrdering Facility: [facility] Address: [address] [place] [address] Performed By: #### 2 4323-8 ####[facility] MILLTOWNCLIA [id number] [place] [address] [place] ALT [Catalytic activity/Vol] 17 U/L Normal 10-54 [facility] Comment on above: Order Comment: Speci men Type: BLOOD SPECIMENOrdering Facility: [facility] Address: [address] [place] [address] Performed By: #### 2 4323-8 ####[facility] MILLTOWNCLIA [id number] [place] [address] [place] Anion gap [Moles/Vol] 11 mmol/L Normal 8-15 [facility] Comment on above: Order Comment: Speci men Type: BLOOD SPECIMENOrdering Facility: [facility] Address: [address] [place] [address] Performed By: #### 2 4323-8 ####[facility] MILLTOWNCLIA [id number] [place] [address] [place] AST [Catalytic activity/Vol] 23 U/L Normal 14-40 [facility] Comment on above: Order Comment: Speci men Type: BLOOD SPECIMENOrdering Facility: [facility] Address: [address] [place] [address] Performed By: #### 2 4323-8 ####[facility] MILLTOWNCLIA [id number] [place] [address] [place] Bilirubin [Mass/Vol] 1.8 mg/dL High 0.2-1.3 [facility] Comment on above: Order Comment: Speci men Type: BLOOD SPECIMENOrdering Facility: [facility] Address: [address] [place] [address] Performed By: #### 2 4323-8 ####[facility] HOSPITALWNCLIA [id number] [place] [address] [place] Calcium [Mass/Vol] 8.9 mg/dL Normal 8.5-10.2 [facility] Comment on above: Order Comment: Speci men Type: BLOOD SPECIMENOrdering Facility: [facility] Address: [address] [place] [address] Performed By: #### 2 4323-8 ####[facility] MILLWNCLIA [id number] [place] [address] [place] Chloride [Moles/Vol] 103 mmol/L Normal 98-107 [facility] Comment on above: Order Comment: Speci men Type: BLOOD SPECIMENOrdering Facility: [facility] Address: [address] [place] [address] Performed By: #### 2 4323-8 ####[facility] MARVA MILLTOWNCLIA [id number] [place] [address] [place] CO2 [Moles/Vol] 25 mmol/L Normal 22-30 [facility] Comment on above: Order Comment: Speci men Type: BLOOD SPECIMENOrdering Facility: [facility] Address: [address] [place] [address] Performed By: #### 2 4323-8 ####[facility] JONHFOOSLANDNCRADHA [id number] [place] [address] [place] Creatinine [Mass/Vol] 0.99 mg/dL Normal 0.73-1.22 [facility] Comment on above: Order Comment: Speci men Type: BLOOD SPECIMENOrdering Facility: [facility] Address: [address] [place] [address] Performed By: #### 2 4323-8 ####[facility] HOSPITALNCLIManuel [id number] [place] [address] [place] Creatinine and Glomerular filtration rate.predicted panel (S/P/Bld) 73 mL/min/1.73m??? Normal >=60 [facility] Comment on above: Order Comment: Speci men Type: BLOOD SPECIMENOrdering Facility: [facility] Address: [address] [place] [address] Result Comment: Concepción mated Glomerular Filtration Rate [...] Performed By: #### 2 4323-8 ####[facility] HOSPITALNCLIA [id number] [place] [address] [place] Glucose [Mass/Vol] 163 mg/dL High 74-99 [facility] Comment on above: Order Comment: Speci men Type: BLOOD SPECIMENOrdering Facility: [facility] Address: [address] [place], [place] [address] Result Comment: The Citizen Of [place] Diabetes Association (ADA) provides guidance for cutoff [...] Standards of Medical Care in Diabetes 2016, Citizen Of [place] Diabetes Association. Diabetes Care. 2016.39(Suppl 1). Performed By: #### 2 4323-8 ####[facility] MARVA MILLTOWNCLIA [id number] [place] [address] [place] Potassium [Moles/Vol] 4.3 mmol/L Normal 3.7-5.1 [facility] Comment on above: Order Comment: Speci men Type: BLOOD SPECIMENOrdering Facility: [facility] Address: [address] [place] [address] Performed By: #### 2 4323-8 ####[facility] MILLWNCLIA [id number] [place] [address] [place] Protein [Mass/Vol] 6.1 g/dL Low 6.3-8.0 [facility] Comment on above: Order Comment: Speci men Type: BLOOD SPECIMENOrdering Facility: [facility] Address: [address] [place] [address] Performed By: #### 2 4323-8 ####[facility] MILLTOWNCLIA [id number] [place] [address] [place] Sodium [Moles/Vol] 139 mmol/L Normal 136-144 [facility] Comment on above: Order Comment: Speci men Type: BLOOD SPECIMENOrdering Facility: [facility] Address: [address] [place] [address] Performed By: #### 2 4323-8 ####[facility] MILLTOWNCLIA [id number] [place] [address] [place] Urea nitrogen [Mass/Vol] 30 mg/dL High 9-24 [facility] Comment on above: Order Comment: Speci men Type: BLOOD SPECIMENOrdering Facility: [facility] Address: [address] [place] [address] Performed By: #### 2 4323-8 ####[facility] MAR[facility] [id number] [place] [address] [place] EPO SerPl-aCncon 03-31-2025 Erythropoietin (EPO) Qn 78.7 mIU/mL High 2.6-18.5 [facility] Comment on above: Order Comment: Speci men Type: BLOOD SPECIMENOrdering Facility: [facility] Address: [address] [place] [address] Performed By: #### 1 5061-5 ####[facility] LABIA [id number] [place] [address] [place] Ferritin SerPl-mCncon 2024 Ferritin [Mass/Vol] 279.0 ng/mL Normal 30.3-565.7 [facility] Comment on above: Order Comment: Speci men Type: BLOOD SPECIMENOrdering Facility: [facility] Address: [address] [place] [address] Performed By: #### 2 276-4, 30219-0, 79851-8 ####[facility] HOSPITALIA [id number] [place] [address] [place] Folate SerPl-mCncon 03-31-20 25 Folate [Mass/Vol] ng/mL Normal >4.7 [facility] Comment on above: Order Comment: Speci men Type: BLOOD SPECIMENOrdering Facility: [facility] Address: [address] [place] [address] Result Comment: A re sult of > 20 ng/mL is not necessarily indicative of a pathologic or treatable condition: it reflects a limitation of the test methodology.Assay reference range: 4.8 to 24.2 ng/mL. Suitable for detection of folate deficiency.Reference:Folate III (Folate III) [package insert V 1.0 [place]]. [employer], [place], [place]: September 2015. Performed By: #### 2 284-8, 2132-9 ####[facility] LABIA [id number] [place] [id number] [place] Iron and Iron binding capaci ty panelon 03-31-2025 Iron [Mass/Vol] 179 ug/dL Normal 41-186 [facility] Comment on above: Order Comment: Speci men Type: BLOOD SPECIMENOrdering Facility: [facility] Address: [address] [place] [address] Performed By: #### 2 276-4, 96908-8, 32276-4 ####[facility] LABIA [id number] [place] [address] [place] Iron binding capacity [Mass/Vol] 198 ug/dL Low 232-386 [facility] Comment on above: Order Comment: Speci men Type: BLOOD SPECIMENOrdering Facility: [facility] Address: [address] [place] [address] Performed By: #### 2 276-4, 06980-8, 42580-7 ####[facility] HOSPITALIA [id number] [place] [address] [place] Iron/TIBC [Molar ratio] 90.4 % High 15.0-57.0 [facility] Comment on above: Order Comment: Speci men Type: BLOOD SPECIMENOrdering Facility: [facility] Address: [address] [place] [address] Performed By: #### 2 276-4, 17966-7, 87214-1 ####[facility] LABIA [id number] [place] [id number] [place] Methylmalonate SerPl-sCncon 03-31-2025 Methylmalonate [Moles/Vol] 0.23 umol/L Normal <=0.40 [facility] Comment on above: Order Comment: Speci men Type: BLOOD SPECIMENOrdering Facility: [facility] Address: [address] [place] [address] Result Comment: This test was developed, and its performance characteristics determined by the [facility] Department of Pathology and Laboratory Medicine. It has not been cleared or approved by the FDA. The [facility] Department of Pathology and Laboratory Medicine is regulated under CLIA as qualified to perform high-complexity testing. This test is used for clinical purposes. It should not be regarded as investigational or for research. Performed By: #### 1 3964-2 ####[facility] [id number] [place] [address] [place] NT-proBNP [facility] 03-31 Natriuretic peptide.B prohormone N-Terminal [Mass/Vol] 4857 pg/mL High <450 [facility] Comment on above: Order Comment: Speci men Type: BLOOD SPECIMENOrdering Facility: [facility] Address: [address] [place] [address] Performed By: #### 2 276-4, 30035-6, 19645-7 ####[facility] [id number] [place] [address] [place] Vit B12 [facility] 025 Cobalamin (Vitamin B12) [Mass/Vol] 685 pg/mL Normal 232-1245 [facility] Comment on above: Order Comment: Julii [facility] Type: BLOOD SPECIMENOrdering Facility: [facility] Address: [address] [place] [address] Performed By: #### 2 284-8, 2132-9 ####[facility] HOSPITALIA [id number] [place] [address] [place] US DVT LOWER BILon US DVT LOWER RALF Normal [facility] CNOVon 03-27-2025 CNOV Normal [facility] CBC W Auto Differential pane l (Bld)on 03-17-2025 Basophils (Bld) [#/Vol] 0.07 10*3/uL Normal <0.11 [facility] Comment on above: Order Comment: Speci men Type: BLOOD SPECIMENOrdering Facility: [facility] Address: [address] [place] [address] Performed By: #### 5 7021-8 ####[facility] HOSPITALWROBERTLIA [id number] [place] [address] [place] Basophils/100 WBC (Bld) 1.3 % Normal [facility] Comment on above: Order Comment: Speci men Type: BLOOD SPECIMENOrdering Facility: [facility] Address: [address] [place] [address] Performed By: #### 5 7021-8 ####[facility] [id number] [place] [address] [place] Differential cell count method Nom (Bld) Auto Normal [facility] Comment on above: Order Comment: Speci men Type: BLOOD SPECIMENOrdering Facility: [facility] Address: [address] [place] [address] Performed By: #### 5 7021-8 ####[facility]PITALL[facility] [id number] [place] [address] [place] Eosinophils (Bld) [#/Vol] 0.10 10*3/uL Normal <0.46 [facility] Comment on above: Order Comment: Speci men Type: BLOOD SPECIMENOrdering Facility: [facility] Address: [address] [place] [address] Performed By: #### 5 7021-8 ####[facility] [id number] [place] [address] [place] Eosinophils/100 WBC (Bld) 1.8 % Normal [facility] Comment on above: Order Comment: Speci men Type: BLOOD SPECIMENOrdering Facility: [facility] Address: [address] [place] [address] Performed By: #### 5 7021-8 ####[facility] JONHFOOSLANDMALENA [id number] [place] [address] [place] Erythrocyte distribution width (RBC) [Ratio] 22.2 % High 11.5-15.0 [facility] Comment on above: Order Comment: Speci men Type: BLOOD SPECIMENOrdering Facility: [facility] Address: [address] [place] [address] Performed By: #### 5 7021-8 ####[facility]ITALNCV[facility] [id number] [place] [address] [place] Hematocrit (Bld) [Volume fraction] 27.5 % Low 39.0-51.0 [facility] Comment on above: Order Comment: Speci men Type: BLOOD SPECIMENOrdering Facility: [facility] Address: [address] [place] [address] Performed By: #### 5 7021-8 ####[facility]PITALL[facility] [id number] [place] [address] [place] Hemoglobin (Bld) [Mass/Vol] 9.3 g/dL Low 13.0-17.0 [facility] Comment on above: Order Comment: Speci men Type: BLOOD SPECIMENOrdering Facility: [facility] Address: [address] [place] [address] Performed By: #### 5 7021-8 ####[facility] HOS[facility]ITALNCLIA [id number] [place] [address] [place] Immature granulocytes (Bld) [#/Vol] 0.03 10*3/uL Normal <0.10 [facility] Comment on above: Order Comment: Speci men Type: BLOOD SPECIMENOrdering Facility: [facility] Address: [address] [place] [address] Performed By: #### 5 7021-8 ####[facility] JONHFOOSLANDROBERTLIA [id number] [place] [address] [place] Immature granulocytes/100 WBC (Bld) 0.6 % Normal [facility] Comment on above: Order Comment: Speci men Type: BLOOD SPECIMENOrdering Facility: [facility] Address: [address] [place] [address] Performed By: #### 5 7021-8 ####[facility] [id number] [place] [address] [place] Lymphocytes (Bld) [#/Vol] 1.31 10*3/uL Normal 1.00-4.00 [facility] Comment on above: Order Comment: Speci men Type: BLOOD SPECIMENOrdering Facility: [facility] Address: [address] [place] [address] Performed By: #### 5 7021-8 ####[facility] [id number] [place] [address] [place] Lymphocytes/100 WBC (Bld) 24.0 % Normal [facility] Comment on above: Order Comment: Speci men Type: BLOOD SPECIMENOrdering Facility: [facility] Address: [address] [place] [address] Performed By: #### 5 7021-8 ####[facility] [id number] [place] [address] [place] MCH (RBC) [Entitic mass] 37.5 pg High 26.0-34.0 [facility] Comment on above: Order Comment: Speci men Type: BLOOD SPECIMENOrdering Facility: [facility] Address: [address] [place] [address] Performed By: #### 5 7021-8 ####[facility]OSPITALNCLIA [id number] [place] [address] [place] MCHC (RBC) [Mass/Vol] 33.8 g/dL Normal 30.5-36.0 [facility] Comment on above: Order Comment: Speci men Type: BLOOD SPECIMENOrdering Facility: [facility] Address: [address] [place] [address] Performed By: #### 5 7021-8 ####[facility]ITALNCV[facility] [id number] [place] [address] [place] MCV (RBC) [Entitic vol] 110.9 fL High 80.0-100.0 [facility] Comment on above: Order Comment: Speci men Type: BLOOD SPECIMENOrdering Facility: [facility] Address: [address] [place] [address] Performed By: #### 5 7021-8 ####[facility] [id number] [place] [address] [place] Monocytes (Bld) [#/Vol] 0.71 10*3/uL Normal <0.87 [facility] Comment on above: Order Comment: Speci men Type: BLOOD SPECIMENOrdering Facility: [facility] Address: [address] [place] [address] Performed By: #### 5 7021-8 ####[facility] [id number] [place] [address] [place] Monocytes/100 WBC (Bld) 13.0 % Normal [facility] Comment on above: Order Comment: Speci men Type: BLOOD SPECIMENOrdering Facility: [facility] Address: [address] [place], [place] [address] Performed By: #### 5 7021-8 ####[facility] [id number] [place] [address] [place] Neutrophils (Bld) [#/Vol] 3.23 10*3/uL Normal 1.45-7.50 [facility] Comment on above: Order Comment: Speci men Type: BLOOD SPECIMENOrdering Facility: [facility] Address: [address] [place] [address] Performed By: #### 5 7021-8 ####[facility] JONHFOOSLANDMALENA [id number] [place] [address] [place] Neutrophils/100 WBC (Bld) 59.3 % Normal [facility] Comment on above: Order Comment: Speci men Type: BLOOD SPECIMENOrdering Facility: [facility] Address: [address] [place] [address] Performed By: #### 5 7021-8 ####[facility] [id number] [place] [address] [place] Nucleated RBC (Bld) [#/Vol] 0.04 10*3/uL High <0.01 [facility] Comment on above: Order Comment: Speci men Type: BLOOD SPECIMENOrdering Facility: [facility] Address: [address] [place] [address] Performed By: #### 5 7021-8 ####[facility] [id number] [place] [address] [place] Nucleated RBC/100 WBC (Bld) [Ratio] 0.7 /100 WBC Normal [facility] Comment on above: Order Comment: Speci men Type: BLOOD SPECIMENOrdering Facility: [facility] Address: [address] [place] [address] Performed By: #### 5 7021-8 ####[facility] [id number] [place] [address] [place] Platelet mean volume (Bld) [Entitic vol] 11.6 fL Normal 9.0-12.7 [facility] Comment on above: Order Comment: Speci men Type: BLOOD SPECIMENOrdering Facility: [facility] Address: [address] [place] [address] Performed By: #### 5 7021-8 ####[facility]OSPITALNCLIA [id number] [place] [address] [place] Platelets (Bld) [#/Vol] 300 10*3/uL Normal 150-400 [facility] Comment on above: Order Comment: Speci men Type: BLOOD SPECIMENOrdering Facility: [facility] Address: [address] [place] [address] Performed By: #### 5 7021-8 ####[facility] HOSPITALMALENA [id number] [place] [address] [place] RBC (Bld) [#/Vol] 2.48 10*6/uL Low 4.20-6.00 [facility] Comment on above: Order Comment: Speci men Type: BLOOD SPECIMENOrdering Facility: [facility] Address: [address] [place] [address] Performed By: #### 5 7021-8 ####[facility] [id number] [place] [address] [place] WBC (Bld) [#/Vol] 5.45 10*3/uL Normal 3.70-11.00 [facility] Comment on above: Order Comment: Speci men Type: BLOOD SPECIMENOrdering Facility: [facility] Address: [address] [place] [address] Performed By: #### 5 7021-8 ####[facility] [id number] [place] [address] [place] CNPNon 03-17-2025 CNPN Normal [facility] CBC W Auto Differential pane l (Bld)on 03-03-2025 Basophils (Bld) [#/Vol] 0.05 10*3/uL Normal <0.11 [facility] Comment on above: Order Comment: Speci men Type: BLOOD SPECIMENOrdering Facility: [facility] Address: [address] [place] [address] Performed By: #### 5 7021-8 ####[facility] JONHWROBERTLIA [id number] [place] [address] [place] Basophils/100 WBC (Bld) 0.8 % Normal [facility] Comment on above: Order Comment: Speci men Type: BLOOD SPECIMENOrdering Facility: [facility] Address: [address] [place] [address] Performed By: #### 5 7021-8 ####[facility] JONHFOOSLANDROBERTLIA [id number] [place] [address] [place] Differential cell count method Nom (Bld) Auto Normal [facility] Comment on above: Order Comment: Speci men Type: BLOOD SPECIMENOrdering Facility: [facility] Address: [address] [place] [address] Performed By: #### 5 7021-8 ####[facility] [facility]ITALROBERTCONSTANCEA [id number] [place] [address] [place] Eosinophils (Bld) [#/Vol] 0.11 10*3/uL Normal <0.46 [facility] Comment on above: Order Comment: Speci men Type: BLOOD SPECIMENOrdering Facility: [facility] Address: [address] [place] [address] Performed By: #### 5 7021-8 ####[facility] HOSPITALKOSTAA [id number] [place] [address] [place] Eosinophils/100 WBC (Bld) 1.8 % Normal [facility] Comment on above: Order Comment: Speci men Type: BLOOD SPECIMENOrdering Facility: [facility] Address: [address] [place] [address] Performed By: #### 5 7021-8 ####[facility] HOSPITALNCLIA [id number] [place] [address] [place] Erythrocyte distribution width (RBC) [Ratio] 22.6 % High 11.5-15.0 [facility] Comment on above: Order Comment: Speci men Type: BLOOD SPECIMENOrdering Facility: [facility] Address: [address] [place] [address] Performed By: #### 5 7021-8 ####[facility]ITALNCV[facility] [id number] [place] [address] [place] Hematocrit (Bld) [Volume fraction] 25.6 % Low 39.0-51.0 [facility] Comment on above: Order Comment: Speci men Type: BLOOD SPECIMENOrdering Facility: [facility] Address: [address] [place] [address] Performed By: #### 5 7021-8 ####[facility]ITAL[facility]OSP[facility] [id number] [place] [address] [place] Hemoglobin (Bld) [Mass/Vol] 8.7 g/dL Low 13.0-17.0 [facility] Comment on above: Order Comment: Speci men Type: BLOOD SPECIMENOrdering Facility: [facility] Address: [address] [place] [address] Performed By: #### 5 7021-8 ####[facility]ITAL[facility]OSP[facility] [id number] [place] [address] [place] Immature granulocytes (Bld) [#/Vol] 0.03 10*3/uL Normal <0.10 [facility] Comment on above: Order Comment: Speci men Type: BLOOD SPECIMENOrdering Facility: [facility] Address: [address] [place] [address] Performed By: #### 5 7021-8 ####[facility] [id number] [place] [address] [place] Immature granulocytes/100 WBC (Bld) 0.5 % Normal [facility] Comment on above: Order Comment: Speci men Type: BLOOD SPECIMENOrdering Facility: [facility] Address: [address] [place] [address] Performed By: #### 5 7021-8 ####[facility] MILLTOWNCLIA [id number] [place] [address] [place] Lymphocytes (Bld) [#/Vol] 1.02 10*3/uL Normal 1.00-4.00 [facility] Comment on above: Order Comment: Speci men Type: BLOOD SPECIMENOrdering Facility: [facility] Address: [address] [place] [address] Performed By: #### 5 7021-8 ####[facility] HOSPITALWNCLIA [id number] [place] [address] [place] Lymphocytes/100 WBC (Bld) 16.3 % Normal [facility] Comment on above: Order Comment: Speci men Type: BLOOD SPECIMENOrdering Facility: [facility] Address: [address] [place] [address] Performed By: #### 5 7021-8 ####[facility] HOSPITALNCLIA [id number] [place] [address] [place] MCH (RBC) [Entitic mass] 37.5 pg High 26.0-34.0 [facility] Comment on above: Order Comment: Speci men Type: BLOOD SPECIMENOrdering Facility: [facility] Address: [address] [place] [address] Performed By: #### 5 7021-8 ####[facility] MILLTOWNCLIA [id number] [place] [address] [place] MCHC (RBC) [Mass/Vol] 34.0 g/dL Normal 30.5-36.0 [facility] Comment on above: Order Comment: Speci men Type: BLOOD SPECIMENOrdering Facility: [facility] Address: [address] [place] [address] Performed By: #### 5 7021-8 ####[facility] [id number] [place] [address] [place] MCV (RBC) [Entitic vol] 110.3 fL High 80.0-100.0 [facility] Comment on above: Order Comment: Speci men Type: BLOOD SPECIMENOrdering Facility: [facility] Address: [address] [place] [address] Performed By: #### 5 7021-8 ####[facility] [id number] [place] [address] [place] Monocytes (Bld) [#/Vol] 0.93 10*3/uL High <0.87 [facility] Comment on above: Order Comment: Speci men Type: BLOOD SPECIMENOrdering Facility: [facility] Address: [address] [place] [address] Performed By: #### 5 7021-8 ####[facility] [id number] [place] [address] [place] Monocytes/100 WBC (Bld) 14.9 % Normal [facility] Comment on above: Order Comment: Speci men Type: BLOOD SPECIMENOrdering Facility: [facility] Address: [address] [place] [address] Performed By: #### 5 7021-8 ####[facility] [id number] [place] [address] [place] Neutrophils (Bld) [#/Vol] 4.10 10*3/uL Normal 1.45-7.50 [facility] Comment on above: Order Comment: Speci men Type: BLOOD SPECIMENOrdering Facility: [facility] Address: [address] [place] [address] Performed By: #### 5 7021-8 ####[facility] [id number] [place] [address] [place] Neutrophils/100 WBC (Bld) 65.7 % Normal [facility] Comment on above: Order Comment: Speci men Type: BLOOD SPECIMENOrdering Facility: [facility] Address: [address] [place] [address] Performed By: #### 5 7021-8 ####[facility] [id number] [place] [address] [place] Nucleated RBC (Bld) [#/Vol] 10*3/uL Normal <0.01 [facility] Comment on above: Order Comment: Speci men Type: BLOOD SPECIMENOrdering Facility: [facility] Address: [address] [place] [address] Performed By: #### 5 7021-8 ####[facility] [id number] [place] [address] [place] Nucleated RBC/100 WBC (Bld) [Ratio] 0.0 /100 WBC Normal [facility] Comment on above: Order Comment: Speci men Type: BLOOD SPECIMENOrdering Facility: [facility] Address: [address] [place] [address] Performed By: #### 5 7021-8 ####[facility] [id number] [place] [address] [place] Platelet mean volume (Bld) [Entitic vol] 11.6 fL Normal 9.0-12.7 [facility] Comment on above: Order Comment: Speci men Type: BLOOD SPECIMENOrdering Facility: [facility] Address: [address] [place] [address] Performed By: #### 5 7021-8 ####[facility] [id number] [place] [address] [place] Platelets (Bld) [#/Vol] 227 10*3/uL Normal 150-400 [facility] Comment on above: Order Comment: Speci men Type: BLOOD SPECIMENOrdering Facility: [facility] Address: [address] [place] [address] Performed By: #### 5 7021-8 ####[facility] HOSPITALMALENA [id number] [place] [address] [place] RBC (Bld) [#/Vol] 2.32 10*6/uL Low 4.20-6.00 [facility] Comment on above: Order Comment: Speci men Type: BLOOD SPECIMENOrdering Facility: [facility] Address: [address] [place] [address] Performed By: #### 5 7021-8 ####[facility] HOSPITALMALENA [id number] [place] [address] [place] WBC (Bld) [#/Vol] 6.24 10*3/uL Normal 3.70-11.00 [facility] Comment on above: Order Comment: Speci men Type: BLOOD SPECIMENOrdering Facility: [facility] Address: [address] [place] [address] Performed By: #### 5 7021-8 ####[facility] HOSPITALROBERTLIA [id number] [place] [address] [place] CBC W Auto Differential pane l (Bld)on 02-17-2025 Basophils (Bld) [#/Vol] 0.04 10*3/uL Normal <0.11 [facility] Comment on above: Order Comment: Speci men Type: BLOOD SPECIMENOrdering Facility: [facility] Address: [address] [place] [address] Performed By: #### 5 7021-8 ####[facility] HOSPITALKOSTAA [id number] [place] [address] [place] Basophils/100 WBC (Bld) 0.8 % Normal [facility] Comment on above: Order Comment: Speci men Type: BLOOD SPECIMENOrdering Facility: [facility] Address: [address] [place] [address] Performed By: #### 5 7021-8 ####[facility] MILLFOOSLANDNCLIA [id number] [place] [address] [place] Differential cell count method Nom (Bld) Auto Normal [facility] Comment on above: Order Comment: Speci men Type: BLOOD SPECIMENOrdering Facility: [facility] Address: [address] [place] [address] Performed By: #### 5 7021-8 ####[facility]OSPITALLIA [id number] [place] [address] [place] Eosinophils (Bld) [#/Vol] 0.12 10*3/uL Normal <0.46 [facility] Comment on above: Order Comment: Speci men Type: BLOOD SPECIMENOrdering Facility: [facility] Address: [address] [place] [address] Performed By: #### 5 7021-8 ####[facility] [id number] [place] [address] [place] Eosinophils/100 WBC (Bld) 2.3 % Normal [facility] Comment on above: Order Comment: Speci men Type: BLOOD SPECIMENOrdering Facility: [facility] Address: [address] [place] [address] Performed By: #### 5 7021-8 ####[facility] HOSPITALLI [id number] [place] [address] [place] Erythrocyte distribution width (RBC) [Ratio] 22.2 % High 11.5-15.0 [facility] Comment on above: Order Comment: Speci men Type: BLOOD SPECIMENOrdering Facility: [facility] Address: [address] [place] [address] Performed By: #### 5 7021-8 ####[facility] HOSPITALNCLIA [id number] [place] [address] [place] Hematocrit (Bld) [Volume fraction] 27.2 % Low 39.0-51.0 [facility] Comment on above: Order Comment: Speci men Type: BLOOD SPECIMENOrdering Facility: [facility] Address: [address] [place] [address] Performed By: #### 5 7021-8 ####[facility] [id number] [place] [address] [place] Hemoglobin (Bld) [Mass/Vol] 9.0 g/dL Low 13.0-17.0 [facility] Comment on above: Order Comment: Speci men Type: BLOOD SPECIMENOrdering Facility: [facility] Address: [address] [place] [address] Performed By: #### 5 7021-8 ####[facility] [id number] [place] [address] [place] Immature granulocytes (Bld) [#/Vol] 10*3/uL Normal <0.10 [facility] Comment on above: Order Comment: Speci men Type: BLOOD SPECIMENOrdering Facility: [facility] Address: [address] [place] [address] Performed By: #### 5 7021-8 ####[facility] [id number] [place] [address] [place] Immature granulocytes/100 WBC (Bld) 0.2 % Normal [facility] Comment on above: Order Comment: Speci men Type: BLOOD SPECIMENOrdering Facility: [facility] Address: [address] [place] [address] Performed By: #### 5 7021-8 ####[facility] [id number] [place] [address] [place] Lymphocytes (Bld) [#/Vol] 0.89 10*3/uL Low 1.00-4.00 [facility] Comment on above: Order Comment: Speci men Type: BLOOD SPECIMENOrdering Facility: [facility] Address: [address] [place] [address] Performed By: #### 5 7021-8 ####[facility] HOSPITALMALENA [id number] [place] [address] [place] Lymphocytes/100 WBC (Bld) 17.1 % Normal [facility] Comment on above: Order Comment: Speci men Type: BLOOD SPECIMENOrdering Facility: [facility] Address: [address] [place] [address] Performed By: #### 5 7021-8 ####[facility]ITALNCV[facility] HOSP[facility] [id number] [place] [address] [place] MCH (RBC) [Entitic mass] 36.6 pg High 26.0-34.0 [facility] Comment on above: Order Comment: Speci men Type: BLOOD SPECIMENOrdering Facility: [facility] Address: [address] [place] [address] Performed By: #### 5 7021-8 ####[facility] HOSPITALNCA [id number] [place] [address] [place] MCHC (RBC) [Mass/Vol] 33.1 g/dL Normal 30.5-36.0 [facility] Comment on above: Order Comment: Speci men Type: BLOOD SPECIMENOrdering Facility: [facility] Address: [address] [place] [address] Performed By: #### 5 7021-8 ####[facility] HOSPITALNCLIA [id number] [place] [address] [place] MCV (RBC) [Entitic vol] 110.6 fL High 80.0-100.0 [facility] Comment on above: Order Comment: Speci men Type: BLOOD SPECIMENOrdering Facility: [facility] Address: [address] [place] [address] Performed By: #### 5 7021-8 ####[facility] MILLTOWNCLIA [id number] [place] [address] [place] Monocytes (Bld) [#/Vol] 0.76 10*3/uL Normal <0.87 [facility] Comment on above: Order Comment: Speci men Type: BLOOD SPECIMENOrdering Facility: [facility] Address: [address] [place] [address] Performed By: #### 5 7021-8 ####[facility] HOSPITALWNJLIA [id number] [place] [address] [place] Monocytes/100 WBC (Bld) 14.6 % Normal [facility] Comment on above: Order Comment: Speci men Type: BLOOD SPECIMENOrdering Facility: [facility] Address: [address] [place] [address] Performed By: #### 5 7021-8 ####[facility]OSPITALLIA [id number] [place] [address] [place] Neutrophils (Bld) [#/Vol] 3.39 10*3/uL Normal 1.45-7.50 [facility] Comment on above: Order Comment: Speci men Type: BLOOD SPECIMENOrdering Facility: [facility] Address: [address] [place] [address] Performed By: #### 5 7021-8 ####[facility] HOSPITALLIA [id number] [place] [address] [place] Neutrophils/100 WBC (Bld) 65.0 % Normal [facility] Comment on above: Order Comment: Speci men Type: BLOOD SPECIMENOrdering Facility: [facility] Address: [address] [place] [address] Performed By: #### 5 7021-8 ####[facility] HOSPITALNCLIA [id number] [place] [address] [place] Nucleated RBC (Bld) [#/Vol] 0.02 10*3/uL High <0.01 [facility] Comment on above: Order Comment: Speci men Type: BLOOD SPECIMENOrdering Facility: [facility] Address: [address] [place] [address] Performed By: #### 5 7021-8 ####[facility] [id number] [place] [address] [place] Nucleated RBC/100 WBC (Bld) [Ratio] 0.4 /100 WBC Normal [facility] Comment on above: Order Comment: Speci men Type: BLOOD SPECIMENOrdering Facility: [facility] Address: [address] [place] [address] Performed By: #### 5 7021-8 ####[facility] [id number] [place] [address] [place] Platelet mean volume (Bld) [Entitic vol] 10.9 fL Normal 9.0-12.7 [facility] Comment on above: Order Comment: Speci men Type: BLOOD SPECIMENOrdering Facility: [facility] Address: [address] [place] [address] Performed By: #### 5 7021-8 ####[facility] [id number] [place] [address] [place] Platelets (Bld) [#/Vol] 226 10*3/uL Normal 150-400 [facility] Comment on above: Order Comment: Speci men Type: BLOOD SPECIMENOrdering Facility: [facility] Address: [address] [place] [address] Performed By: #### 5 7021-8 ####[facility] [id number] [place] [address] [place] RBC (Bld) [#/Vol] 2.46 10*6/uL Low 4.20-6.00 [facility] Comment on above: Order Comment: Speci men Type: BLOOD SPECIMENOrdering Facility: [facility] Address: [address] [place] [address] Performed By: #### 5 7021-8 ####[facility] HOSPITALROBERTManuel [id number] [place] [address] [place] WBC (Bld) [#/Vol] 5.21 10*3/uL Normal 3.70-11.00 [facility] Comment on above: Order Comment: Speci men Type: BLOOD SPECIMENOrdering Facility: [facility] Address: [address] [place] [address] Performed By: #### 5 7021-8 ####[facility] HOSPITALROBERTManuel [id number] [place] [address] [place] CBC W Auto Differential pane l (Bld)on 02-03-2025 Basophils (Bld) [#/Vol] 0.04 10*3/uL Normal <0.11 [facility] Comment on above: Order Comment: Speci men Type: BLOOD SPECIMENOrdering Facility: [facility] Address: [address] [place] [address] Performed By: #### 5 7021-8 ####[facility] [id number] [place] [address] [place] Basophils/100 WBC (Bld) 0.8 % Normal [facility] Comment on above: Order Comment: Speci men Type: BLOOD SPECIMENOrdering Facility: [facility] Address: [address] [place] [address] Performed By: #### 5 7021-8 ####[facility] [id number] [address] [place] Differential cell count method Nom (Bld) Auto Normal [facility] Comment on above: Order Comment: Speci men Type: BLOOD SPECIMENOrdering Facility: [facility] Address: [address] [place] [address] Performed By: #### 5 7021-8 ####[facility] HOSPITALWNJLIA [id number] [place] [address] [place] Eosinophils (Bld) [#/Vol] 0.11 10*3/uL Normal <0.46 [facility] Comment on above: Order Comment: Speci men Type: BLOOD SPECIMENOrdering Facility: [facility] Address: [address] [place] [address] Performed By: #### 5 7021-8 ####[facility] [id number] [place] [address] [place] Eosinophils/100 WBC (Bld) 2.1 % Normal [facility] Comment on above: Order Comment: Speci men Type: BLOOD SPECIMENOrdering Facility: [facility] Address: [address] [place] [address] Performed By: #### 5 7021-8 ####[facility] [id number] [place] [address] [place] Erythrocyte distribution width (RBC) [Ratio] 23.0 % High 11.5-15.0 [facility] Comment on above: Order Comment: Speci men Type: BLOOD SPECIMENOrdering Facility: [facility] Address: [address] [place] [address] Performed By: #### 5 7021-8 ####[facility] HOSPITALLIA [id number] [place] [address] [place] Hematocrit (Bld) [Volume fraction] 27.7 % Low 39.0-51.0 [facility] Comment on above: Order Comment: Speci men Type: BLOOD SPECIMENOrdering Facility: [facility] Address: [address] [place] [address] Performed By: #### 5 7021-8 ####[facility] HOSPITALLI [id number] [place] [address] [place] Hemoglobin (Bld) [Mass/Vol] 9.1 g/dL Low 13.0-17.0 [facility] Comment on above: Order Comment: Speci men Type: BLOOD SPECIMENOrdering Facility: [facility] Address: [address] [place] [address] Performed By: #### 5 7021-8 ####[facility]OSPITALWNJLIA [id number] [place] [address] [place] Immature granulocytes (Bld) [#/Vol] 10*3/uL Normal <0.10 [facility] Comment on above: Order Comment: Speci men Type: BLOOD SPECIMENOrdering Facility: [facility] Address: [address] [place] [address] Performed By: #### 5 7021-8 ####[facility] [id number] [place] [address] [place] Immature granulocytes/100 WBC (Bld) 0.2 % Normal [facility] Comment on above: Order Comment: Speci men Type: BLOOD SPECIMENOrdering Facility: [facility] Address: [address] [place] [address] Performed By: #### 5 7021-8 ####[facility]OSPITALLIA [id number] [place] [address] [place] Lymphocytes (Bld) [#/Vol] 1.16 10*3/uL Normal 1.00-4.00 [facility] Comment on above: Order Comment: Speci men Type: BLOOD SPECIMENOrdering Facility: [facility] Address: [address] [place] [address] Performed By: #### 5 7021-8 ####[facility] HOSPITALNCLIA [id number] [place] [address] [place] Lymphocytes/100 WBC (Bld) 22.2 % Normal [facility] Comment on above: Order Comment: Speci men Type: BLOOD SPECIMENOrdering Facility: [facility] Address: [address] [place], [place] [address] Performed By: #### 5 7021-8 ####[facility] JONHWilliamsNCRADHA [id number] [place] [address] [place] MCH (RBC) [Entitic mass] 36.1 pg High 26.0-34.0 [facility] Comment on above: Order Comment: Speci men Type: BLOOD SPECIMENOrdering Facility: [facility] Address: [address] [place] [address] Performed By: #### 5 7021-8 ####[facility] HOSPITALNCRADHA [id number] [place] [address] [place] MCHC (RBC) [Mass/Vol] 32.9 g/dL Normal 30.5-36.0 [facility] Comment on above: Order Comment: Speci men Type: BLOOD SPECIMENOrdering Facility: [facility] Address: [address] [place] [address] Performed By: #### 5 7021-8 ####[facility] HOSPITALNCA [id number] [place] [address] [place] MCV (RBC) [Entitic vol] 109.9 fL High 80.0-100.0 [facility] Comment on above: Order Comment: Speci men Type: BLOOD SPECIMENOrdering Facility: [facility] Address: [address] [place], [place] [address] Performed By: #### 5 7021-8 ####[facility] [id number] [place] [address] [place] Monocytes (Bld) [#/Vol] 0.71 10*3/uL Normal <0.87 [facility] Comment on above: Order Comment: Speci men Type: BLOOD SPECIMENOrdering Facility: [facility] Address: [address] [place], [place] [id number] Performed By: #### 5 7021-8 ####[facility] MILL[facility]CL[facility] [id number] [place] [address] [place] Monocytes/100 WBC (Bld) 13.6 % Normal [facility] Comment on above: Order Comment: Speci men Type: BLOOD SPECIMENOrdering Facility: [facility] Address: [address] [place] [address] Performed By: #### 5 7021-8 ####[facility]ITAL[facility]CL[facility] [id number] [place] [address] [place] Neutrophils (Bld) [#/Vol] 3.19 10*3/uL Normal 1.45-7.50 [facility] Comment on above: Order Comment: Speci men Type: BLOOD SPECIMENOrdering Facility: [facility] Address: [address] [place] [address] Performed By: #### 5 7021-8 ####[facility] [id number] [place] [address] [place] OF [place] Neutrophils/100 WBC (Bld) 61.1 % Normal [facility] Comment on above: Order Comment: Speci men Type: BLOOD SPECIMENOrdering Facility: [facility] Address: [address] [place] [address] Performed By: #### 5 7021-8 ####[facility] HOSPITALLIA [id number] [place] [address] [place] Nucleated RBC (Bld) [#/Vol] 0.03 10*3/uL High <0.01 [facility] Comment on above: Order Comment: Speci men Type: BLOOD SPECIMENOrdering Facility: [facility] Address: [address] [place] [address] Performed By: #### 5 7021-8 ####[facility] HOSPITALNCLIA [id number] [place] [address] [place] Nucleated RBC/100 WBC (Bld) [Ratio] 0.6 /100 WBC Normal [facility] Comment on above: Order Comment: Speci men Type: BLOOD SPECIMENOrdering Facility: [facility] Address: [address] [place] [address] Performed By: #### 5 7021-8 ####[facility] HOSPITALROBERTRADHA [id number] [place] [address] [place] Platelet mean volume (Bld) [Entitic vol] 10.4 fL Normal 9.0-12.7 [facility] Comment on above: Order Comment: Speci men Type: BLOOD SPECIMENOrdering Facility: [facility] Address: [address] [place] [address] Performed By: #### 5 7021-8 ####[facility] HOSPITALROBERTVA HOSPITAL [id number] [place] [address] [place] Platelets (Bld) [#/Vol] 252 10*3/uL Normal 150-400 [facility] Comment on above: Order Comment: Speci men Type: BLOOD SPECIMENOrdering Facility: [facility] Address: [address] [place] [address] Performed By: #### 5 7021-8 ####[facility] EASTManuel [id number] [place] [address] [place] RBC (Bld) [#/Vol] 2.52 10*6/uL Low 4.20-6.00 [facility] Comment on above: Order Comment: Speci men Type: BLOOD SPECIMENOrdering Facility: [facility] Address: [address] [place] [address] Performed By: #### 5 7021-8 ####[facility] HOSPITALNCLIA [id number] [place] [address] [place] WBC (Bld) [#/Vol] 5.22 10*3/uL Normal 3.70-11.00 [facility] Comment on above: Order Comment: Speci men Type: BLOOD SPECIMENOrdering Facility: [facility] Address: [address] [place] [address] Performed By: #### 5 7021-8 ####[facility] [id number] [place] [address] [place] CNOVon 01-31-2025 CNOV Normal [facility] CBC W Auto Differential pane l (Bld)on 01-20-2025 Basophils (Bld) [#/Vol] 0.05 10*3/uL Normal <0.11 [facility] Comment on above: Order Comment: Speci men Type: BLOOD SPECIMENOrdering Facility: [facility] Address: [address] [place] [address] Performed By: #### 5 7021-8 ####[facility] [id number] [place] [address] [place] Basophils/100 WBC (Bld) 0.9 % Normal [facility] Comment on above: Order Comment: Speci men Type: BLOOD SPECIMENOrdering Facility: [facility] Address: [address] [place] [address] Performed By: #### 5 7021-8 ####[facility] [id number] [place] [address] [place] Differential cell count method Nom (Bld) Auto Normal [facility] Comment on above: Order Comment: Speci men Type: BLOOD SPECIMENOrdering Facility: [facility] Address: [address] [place] [address] Performed By: #### 5 7021-8 ####[facility] HOSPITALNCLIA [id number] [place] [address] [place] Eosinophils (Bld) [#/Vol] 0.12 10*3/uL Normal <0.46 [facility] Comment on above: Order Comment: Speci men Type: BLOOD SPECIMENOrdering Facility: [facility] Address: [address] [place] [address] Performed By: #### 5 7021-8 ####[facility] JONHJEAN [id number] [place] [address] [place] Eosinophils/100 WBC (Bld) 2.2 % Normal [facility] Comment on above: Order Comment: Speci men Type: BLOOD SPECIMENOrdering Facility: [facility] Address: [address] [place] [address] Performed By: #### 5 7021-8 ####[facility] HOSPITALNCLIManuel [id number] [place] [address] [place] Erythrocyte distribution width (RBC) [Ratio] 21.7 % High 11.5-15.0 [facility] Comment on above: Order Comment: Speci men Type: BLOOD SPECIMENOrdering Facility: [facility] Address: [address] [place] [address] Performed By: #### 5 7021-8 ####[facility] EASTA [id number] [place] [address] [place] Hematocrit (Bld) [Volume fraction] 28.9 % Low 39.0-51.0 [facility] Comment on above: Order Comment: Speci men Type: BLOOD SPECIMENOrdering Facility: [facility] Address: [address] [place] [address] Performed By: #### 5 7021-8 ####[facility] E[facility] [id number] [place] [address] [place] Hemoglobin (Bld) [Mass/Vol] 9.6 g/dL Low 13.0-17.0 [facility] Comment on above: Order Comment: Speci men Type: BLOOD SPECIMENOrdering Facility: [facility] Address: [address] [place] [address] Performed By: #### 5 7021-8 ####[facility] MILLWNCLIA [id number] [place] [address] [place] Immature granulocytes (Bld) [#/Vol] 10*3/uL Normal <0.10 [facility] Comment on above: Order Comment: Speci men Type: BLOOD SPECIMENOrdering Facility: [facility] Address: [address] [place] [address] Performed By: #### 5 7021-8 ####[facility] HOSPITALLIA [id number] [place] [address] [place] Immature granulocytes/100 WBC (Bld) 0.4 % Normal [facility] Comment on above: Order Comment: Speci men Type: BLOOD SPECIMENOrdering Facility: [facility] Address: [address] [place] [address] Performed By: #### 5 7021-8 ####[facility] HOSPITALLIA [id number] [place] [address] [place] Lymphocytes (Bld) [#/Vol] 0.85 10*3/uL Low 1.00-4.00 [facility] Comment on above: Order Comment: Speci men Type: BLOOD SPECIMENOrdering Facility: [facility] Address: [address] [place] [address] Performed By: #### 5 7021-8 ####[facility] HOSPITALLIA [id number] [place] [address] [place] Lymphocytes/100 WBC (Bld) 15.9 % Normal [facility] Comment on above: Order Comment: Speci men Type: BLOOD SPECIMENOrdering Facility: [facility] Address: [address] [place] [address] Performed By: #### 5 7021-8 ####[facility] HOSPITALLIA [id number] [place] [address] [place] MCH (RBC) [Entitic mass] 36.5 pg High 26.0-34.0 [facility] Comment on above: Order Comment: Speci men Type: BLOOD SPECIMENOrdering Facility: [facility] Address: [address] [place] [address] Performed By: #### 5 7021-8 ####[facility]ITALNCVA HOSPITAL [id number] [place] [address] [place] MCHC (RBC) [Mass/Vol] 33.2 g/dL Normal 30.5-36.0 [facility] Comment on above: Order Comment: Speci men Type: BLOOD SPECIMENOrdering Facility: [facility] Address: [address] [place] [address] Performed By: #### 5 7021-8 ####[facility]ITALNCVA HOSPITAL [id number] [place] [address] [place] MCV (RBC) [Entitic vol] 109.9 fL High 80.0-100.0 [facility] Comment on above: Order Comment: Speci men Type: BLOOD SPECIMENOrdering Facility: [facility] Address: [address] [place] [address] Performed By: #### 5 7021-8 ####[facility] [id number] [place] [address] [place] Monocytes (Bld) [#/Vol] 0.78 10*3/uL Normal <0.87 [facility] Comment on above: Order Comment: Speci men Type: BLOOD SPECIMENOrdering Facility: [facility] Address: [address] [place] [address] Performed By: #### 5 7021-8 ####[facility]ITALNCVA HOSPITAL [id number] [address] [place] Monocytes/100 WBC (Bld) 14.6 % Normal [facility] Comment on above: Order Comment: Speci men Type: BLOOD SPECIMENOrdering Facility: [facility] Address: [address] [place] [address] Performed By: #### 5 7021-8 ####[facility] HOSPITALROBERTLIA [id number] [place] [address] [place] Neutrophils (Bld) [#/Vol] 3.54 10*3/uL Normal 1.45-7.50 [facility] Comment on above: Order Comment: Speci men Type: BLOOD SPECIMENOrdering Facility: [facility] Address: [address] [place] [address] Performed By: #### 5 7021-8 ####[facility] E[facility] [id number] [place] [address] [place] Neutrophils/100 WBC (Bld) 66.0 % Normal [facility] Comment on above: Order Comment: Speci men Type: BLOOD SPECIMENOrdering Facility: [facility] Address: [address] [place] [address] Performed By: #### 5 7021-8 ####[facility] [id number] [place] [address] [place] Nucleated RBC (Bld) [#/Vol] 10*3/uL Normal <0.01 [facility] Comment on above: Order Comment: Speci men Type: BLOOD SPECIMENOrdering Facility: [facility] Address: [address] [place] [address] Performed By: #### 5 7021-8 ####[facility] HOSPITALLIA [id number] [place] [address] [place] Nucleated RBC/100 WBC (Bld) [Ratio] 0.0 /100 WBC Normal [facility] Comment on above: Order Comment: Speci men Type: BLOOD SPECIMENOrdering Facility: [facility] Address: [address] [place] [address] Performed By: #### 5 7021-8 ####[facility] HOSPITALWNCLIA [id number] [place] [address] [place] Platelet mean volume (Bld) [Entitic vol] 11.9 fL Normal 9.0-12.7 [facility] Comment on above: Order Comment: Speci men Type: BLOOD SPECIMENOrdering Facility: [facility] Address: [address] [place] [address] Performed By: #### 5 7021-8 ####[facility] HOSPITALNCLIA [id number] [place] [address] [place] Platelets (Bld) [#/Vol] 266 10*3/uL Normal 150-400 [facility] Comment on above: Order Comment: Speci men Type: BLOOD SPECIMENOrdering Facility: [facility] Address: [address] [place] [address] Performed By: #### 5 7021-8 ####[facility] HOSPITALNCLIA [id number] [place] [address] [place] RBC (Bld) [#/Vol] 2.63 10*6/uL Low 4.20-6.00 [facility] Comment on above: Order Comment: Speci men Type: BLOOD SPECIMENOrdering Facility: [facility] Address: [address] [place] [address] Performed By: #### 5 7021-8 ####[facility] HOSPITALLIA [id number] [place] [address] [place] WBC (Bld) [#/Vol] 5.36 10*3/uL Normal 3.70-11.00 [facility] Comment on above: Order Comment: Speci men Type: BLOOD SPECIMENOrdering Facility: [facility] Address: [address] [place] [address] Performed By: #### 5 7021-8 ####[facility] HOSPITALNCLIA [id number] [place] [address] [place] Comprehensive metabolic 2000 panelon 01-20-2025 Albumin [Mass/Vol] 4.2 g/dL Normal 3.9-4.9 [facility] Comment on above: Order Comment: Speci men Type: BLOOD SPECIMENOrdering Facility: [facility] Address: [address] [place] [address] Performed By: #### 2 4323-8 ####[facility] MARVA MILLTOWNCLIA [id number] [place] [address] [place] ALP [Catalytic activity/Vol] 74 U/L Normal 38-113 [facility] Comment on above: Order Comment: Speci men Type: BLOOD SPECIMENOrdering Facility: [facility] Address: [address] [place] [address] Performed By: #### 2 4323-8 ####[facility] MILLWNCLIA [id number] [place] [address] [place] ALT [Catalytic activity/Vol] 16 U/L Normal 10-54 [facility] Comment on above: Order Comment: Speci men Type: BLOOD SPECIMENOrdering Facility: [facility] Address: [address] [place] [address] Performed By: #### 2 4323-8 ####[facility]OSPITALWNCLIA [id number] [place] [address] [place] Anion gap [Moles/Vol] 10 mmol/L Normal 8-15 [facility] Comment on above: Order Comment: Speci men Type: BLOOD SPECIMENOrdering Facility: [facility] Address: [address] [place] [address] Performed By: #### 2 4323-8 ####[facility] MILLTOWNCLIA [id number] [place] [address] [place] AST [Catalytic activity/Vol] 24 U/L Normal 14-40 [facility] Comment on above: Order Comment: Speci men Type: BLOOD SPECIMENOrdering Facility: [facility] Address: [address] [place] [address] Performed By: #### 2 4323-8 ####[facility] KATECONSTANCEA [id number] [place] [address] [place] Bilirubin [Mass/Vol] 1.3 mg/dL Normal 0.2-1.3 [facility] Comment on above: Order Comment: Speci men Type: BLOOD SPECIMENOrdering Facility: [facility] Address: [address] [place] [address] Performed By: #### 2 4323-8 ####[facility] HOSPITALJULIOA [id number] [place] [address] [place] Calcium [Mass/Vol] 9.0 mg/dL Normal 8.5-10.2 [facility] Comment on above: Order Comment: Speci men Type: BLOOD SPECIMENOrdering Facility: [facility] Address: [address] [place] [address] Performed By: #### 2 4323-8 ####[facility] JONHWilliamsKOSTAA [id number] [place] [address] [place] Chloride [Moles/Vol] 100 mmol/L Normal 98-107 [facility] Comment on above: Order Comment: Speci men Type: BLOOD SPECIMENOrdering Facility: [facility] Address: [address] [place] [address] Performed By: #### 2 4323-8 ####[facility] HOSPITALWNCLIA [id number] [place] [address] [place] CO2 [Moles/Vol] 29 mmol/L Normal 22-30 [facility] Comment on above: Order Comment: Speci men Type: BLOOD SPECIMENOrdering Facility: [facility] Address: [address] [place] [address] Performed By: #### 2 4323-8 ####[facility] HOSPITALNCLI [id number] [place] [address] [place] Creatinine [Mass/Vol] 1.10 mg/dL Normal 0.73-1.22 [facility] Comment on above: Order Comment: Speci men Type: BLOOD SPECIMENOrdering Facility: [facility] Address: [address] [place] [address] Performed By: #### 2 4323-8 ####[facility] HOSPITALNCLI [id number] [place] [address] [place] Creatinine and Glomerular filtration rate.predicted panel (S/P/Bld) 64 mL/min/1.73m??? Normal >=60 [facility] Comment on above: Order Comment: [facility] Type: BLOOD SPECIMENOrdering Facility: [facility] Address: [address] [place] [address] Result Comment: Concepción mated Glomerular Filtration Rate [...] actual GFR. Performed By: #### 2 4323-8 ####[facility] [id number] [place] [address] [place] Glucose [Mass/Vol] 92 mg/dL Normal 74-99 [facility] Comment on above: Order Comment: Speci men Type: BLOOD SPECIMENOrdering Facility: [facility] Address: [address] [place] [address] Result Comment: The Citizen [place] Diabetes Association (ADA) provides guidance for cutoff [...] Standards of Medical Care in Diabetes 2016, Citizen Of [place] Diabetes Association. Diabetes Care. 2016.39(Suppl 1). Performed By: #### 2 4323-8 ####[facility] MARVA MILLTOWROBERTLIA [id number] [place] [address] [place] Potassium [Moles/Vol] 4.4 mmol/L Normal 3.7-5.1 [facility] Comment on above: Order Comment: Julii men Type: BLOOD SPECIMENOrdering Facility: [facility] Address: [address] [place] [address] Performed By: #### 2 4323-8 ####[facility] HOSPITALWROBERTLIA [id number] [place] [address] [place] Protein [Mass/Vol] 6.4 g/dL Normal 6.3-8.0 [facility] Comment on above: Order Comment: Elfego gilbert Type: BLOOD SPECIMENOrdering Facility: [facility] Address: [address] [place] [address] Performed By: #### 2 4323-8 ####[facility] HOSPITALROBERTLIA [id number] [place] [address] [place] Sodium [Moles/Vol] 139 mmol/L Normal 136-144 [facility] Comment on above: Order Comment: Speci men Type: BLOOD SPECIMENOrdering Facility: [facility] Address: [address] [place] [address] Performed By: #### 2 4323-8 ####[facility] MILLWNCLIA [id number] [place] [address] [place] Urea nitrogen [Mass/Vol] 33 mg/dL High 9-24 [facility] Comment on above: Order Comment: Speci men Type: BLOOD SPECIMENOrdering Facility: [facility] Address: [address] [place] [address] Performed By: #### 2 4323-8 ####[facility] [id number] [place] [address] [place] Lipid 1996 panelon 5 Cholesterol [Mass/Vol] 80 mg/dL Normal <200 [facility] Comment on above: Order Comment: Speci men Type: BLOOD SPECIMENOrdering Facility: [facility] Address: [address] [place] [address] Result Comment: <200 mg/dL, Desirable 200-239 mg/dL, Borderline high>239 mg/dL, High Performed By: #### 3 016-3 ####[facility] LABCLIA [id number] [place] [address] [place]#### 00805-9 ####[facility] LABCLIA [id number] [facility]EDIN HOSPITALK [address], [address] STATES OF [facility] [id number] [address] [place] Cholesterol in HDL [Mass/Vol] 50 mg/dL Normal >39 [facility] Comment on above: Order Comment: Speci men Type: BLOOD SPECIMENOrdering Facility: [facility] Address: [address] [place] [address] Result Comment: 40-5 9 mg/dL, Acceptable>59 mg/dL, High: Negative risk factor for coronary heart disease<40 mg/dL, Low: Positive risk factor for coronary heart disease Performed By: #### 3 016-3 ####[facility] LABCLIA [id number] [facility]K [address] [place] [address] [place]#### 38591-6 ####[facility] LABCLIA [id number] [facility]D [facility]K [id number] [id number] [address] STATES [facility] Cholesterol in LDL [Mass/Vol] 22 mg/dL Normal <100 [facility] Comment on above: Order Comment: Speci men Type: BLOOD SPECIMENOrdering Facility: [facility] Address: [address] [place] [address] Result Comment: <100 mg/dL, Optimal 100-129 mg/dL, Near optimal/above optimal 130-159 mg/dL, Borderline high 160-189 mg/dL, High>189 mg/dL, Very highSecondary prevention optimal LDL Cholesterol levels are recommended to be < 70 mg/dL Performed By: #### 3 016-3 ####[facility] LABCLIA [id number] [address]#### [address]-8 ####[facility] LABCLIA [id number] [address] [id number] [address] Cholesterol in LDL/Cholesterol in HDL [Mass ratio] 0.44 {ratio} Normal <2.54 [facility] Comment on above: Order Comment: Speci men Type: BLOOD SPECIMENOrdering Facility: [facility] Address: [address] [place] [address] Result Comment: Refkarey lazaroce:1. National Cholesterol Education Program ATP III Guideline At-A-Glance Quick Desk Reference: National Heart, Lung, and Blood [place]. National Institutes of Health. 2001: NIH Publication No. 01-3305.2. An International Atherosclerosis Society position paper: global recommendations for the management of dyslipidemia: executive summary, Atherosclerosis. 2014: 232(2):410-413. Performed By: #### 3 016-3 ####[facility] LABCLIA [id number] [address] [place]#### 92140-1 ####[facility] LABCLIA [id number] [address], [place] [address] [place] [facility] [id number] [address] OF [place] Cholesterol in VLDL [Mass/Vol] 8 mg/dL Normal <30 [facility] Comment on above: Order Comment: Speci men Type: BLOOD SPECIMENOrdering Facility: [facility] Address: [address] [place] [address] Performed By: #### 3 016-3 ####[facility] LABCLIA [id number] [place] [address] [place]#### 19874-3 ####[facility] LABCLIA [id number] [place] [address] [place] [facility]AC[facility] [id number] [place] [address] [place] Cholesterol non HDL [Mass/Vol] 30 mg/dL Normal <130 [facility] Comment on above: Order Comment: Speci men Type: BLOOD SPECIMENOrdering Facility: [facility] Address: [address] [place] [address] Result Comment: <130 mg/dL, Optimal 130-159 mg/dL, Near optimal/above optimal 160-189 mg/dL, Borderline high 190-219 mg/dL, High>219 mg/dL, Very highSecondary prevention optimal non HDL Cholesterol levels are recommended to be <100 mg/dL Performed By: #### 3 016-3 ####[facility] LABCLIA [id number] [place] [address] [place]#### 91909-5 ####[facility] LABCLIA [id number] [address], [facility] [place] STATES OF AMERICACLEVEL[facility] [id number] [address] [place] Cholesterol.total/Chol esterol in HDL [Mass ratio] 1.60 {ratio} Normal <5.10 [facility] Comment on above: Order Comment: Speci men Type: BLOOD SPECIMENOrdering Facility: [facility] Address: [address] [place] [address] Performed By: #### 3 016-3 ####[facility] LABCLIA [id number] [place] [address] [place]#### 16577-9 ####[facility] LABCLIA [id number] [place] [address] [place] [facility] [id number] [address] [place] FASTING TIME 12 hrs Normal [facility] Comment on above: Order Comment: Speci men Type: BLOOD SPECIMENOrdering Facility: [facility] Address: [address] [place] [address] Performed By: #### 3 016-3 ####[facility] LABCLIA [id number] [place] [address] [place]#### [id number] ####[facility] LABCLIA [id number] [place] [address] [place] [facility] [id number] [address] [place] Triglyceride [Mass/Vol] 38 mg/dL Normal <150 [facility] Comment on above: Order Comment: Speci men Type: BLOOD SPECIMENOrdering Facility: [facility] Address: [address] [place] [address] Result Comment: <150 mg/dL, Normal 150-199 mg/dL, Borderline high 200-499 mg/dL, High>499 mg/dL, Very high Performed By: #### 3 016-3 ####[facility] LABCLIA [id number] [place] [address] [place]#### 61912-4 ####[facility] LABIA [id number] [address] [id number] [place] [address] [place] TSH SerPl-aCncon 01-20-2025 TSH Qn 0.605 m[IU]/L Normal 0.270-4.20 0 [facility] Comment on above: Order Comment: Speci men Type: BLOOD SPECIMENOrdering Facility: [facility] Address: [address] [place] [address] Performed By: #### 3 016-3 ####[facility] [id number] [address] [place]#### 34268-1 ####[facility] [id number] [address] [place] [id number] [place] [address] [place] CBC W Auto Differential pane l (Bld)on 01-06-2025 Basophils (Bld) [#/Vol] 0.04 10*3/uL Normal <0.11 [facility] Comment on above: Order Comment: Speci men Type: BLOOD SPECIMENOrdering Facility: [facility] Address: [address] [place] [address] Performed By: #### 5 7021-8 ####[place] [id number] [address] [place] Basophils/100 WBC (Bld) 0.8 % Normal [facility] Comment on above: Order Comment: Speci men Type: BLOOD SPECIMENOrdering Facility: [facility] Address: [address] [place] [address] Performed By: #### 5 7021-8 ####[facility] MILLWNCLIA [id number] [place] [address] [place] Differential cell count method Nom (Bld) Auto Normal [facility] Comment on above: Order Comment: Speci men Type: BLOOD SPECIMENOrdering Facility: [facility] Address: [address] [place] [address] Performed By: #### 5 7021-8 ####[facility] HOSPITALROBERTLIA [id number] [place] [address] [place] Eosinophils (Bld) [#/Vol] 0.13 10*3/uL Normal <0.46 [facility] Comment on above: Order Comment: Speci men Type: BLOOD SPECIMENOrdering Facility: [facility] Address: [address] [place] [address] Performed By: #### 5 7021-8 ####[facility]ITALL[facility] [id number] [place] [address] [place] Eosinophils/100 WBC (Bld) 2.5 % Normal [facility] Comment on above: Order Comment: Speci men Type: BLOOD SPECIMENOrdering Facility: [facility] Address: [address] [place] [address] Performed By: #### 5 7021-8 ####[facility] HOSPITALLIA [id number] [place] [address] [place] Erythrocyte distribution width (RBC) [Ratio] 21.6 % High 11.5-15.0 [facility] Comment on above: Order Comment: Speci men Type: BLOOD SPECIMENOrdering Facility: [facility] Address: [address] [place] [address] Performed By: #### 5 7021-8 ####[facility] HOSPITALNCLIA [id number] [place] [address] [place] Hematocrit (Bld) [Volume fraction] 29.4 % Low 39.0-51.0 [facility] Comment on above: Order Comment: Speci men Type: BLOOD SPECIMENOrdering Facility: [facility] Address: [address] [place] [address] Performed By: #### 5 7021-8 ####[facility] [id number] [place] [address] [place] Hemoglobin (Bld) [Mass/Vol] 9.7 g/dL Low 13.0-17.0 [facility] Comment on above: Order Comment: Speci men Type: BLOOD SPECIMENOrdering Facility: [facility] Address: [address] [place] [address] Performed By: #### 5 7021-8 ####[facility] [id number] [place] [address] [place] Immature granulocytes (Bld) [#/Vol] 10*3/uL Normal <0.10 [facility] Comment on above: Order Comment: Speci men Type: BLOOD SPECIMENOrdering Facility: [facility] Address: [address] [place] [address] Performed By: #### 5 7021-8 ####[facility] [id number] [place] [address] [place] Immature granulocytes/100 WBC (Bld) 0.4 % Normal [facility] Comment on above: Order Comment: Speci men Type: BLOOD SPECIMENOrdering Facility: [facility] Address: [address] [place] [address] Performed By: #### 5 7021-8 ####[facility] [id number] [place] [address] [place] Lymphocytes (Bld) [#/Vol] 1.00 10*3/uL Normal 1.00-4.00 [facility] Comment on above: Order Comment: Speci men Type: BLOOD SPECIMENOrdering Facility: [facility] Address: [address] [place] [address] Performed By: #### 5 7021-8 ####[facility] JONHJEAN [id number] [place] [address] [place] Lymphocytes/100 WBC (Bld) 19.2 % Normal [facility] Comment on above: Order Comment: Speci men Type: BLOOD SPECIMENOrdering Facility: [facility] Address: [address] [place] [address] Performed By: #### 5 7021-8 ####[facility]ITAL[facility]CV[facility] [id number] [place] [address] [place] MCH (RBC) [Entitic mass] 36.5 pg High 26.0-34.0 [facility] Comment on above: Order Comment: Speci men Type: BLOOD SPECIMENOrdering Facility: [facility] Address: [address] [place] [address] Performed By: #### 5 7021-8 ####[facility] HOSPITALNCManuel [id number] [place] [address] [place] MCHC (RBC) [Mass/Vol] 33.0 g/dL Normal 30.5-36.0 [facility] Comment on above: Order Comment: Speci men Type: BLOOD SPECIMENOrdering Facility: [facility] Address: [address] [place] [address] Performed By: #### 5 7021-8 ####[facility] HOSPITALNCLI [id number] [place] [address] [place] MCV (RBC) [Entitic vol] 110.5 fL High 80.0-100.0 [facility] Comment on above: Order Comment: Speci men Type: BLOOD SPECIMENOrdering Facility: [facility] Address: [address] [place] [address] Performed By: #### 5 7021-8 ####[facility] MILLWNCLIA [id number] [place] [address] [place] Monocytes (Bld) [#/Vol] 0.79 10*3/uL Normal <0.87 [facility] Comment on above: Order Comment: Speci men Type: BLOOD SPECIMENOrdering Facility: [facility] Address: [address] [place] [address] Performed By: #### 5 7021-8 ####[facility]PITALLIA [id number] [place] [address] [place] Monocytes/100 WBC (Bld) 15.1 % Normal [facility] Comment on above: Order Comment: Speci men Type: BLOOD SPECIMENOrdering Facility: [facility] Address: [address] [place] [address] Performed By: #### 5 7021-8 ####[facility]PITALLIA [id number] [place] [address] [place] Neutrophils (Bld) [#/Vol] 3.24 10*3/uL Normal 1.45-7.50 [facility] Comment on above: Order Comment: Speci men Type: BLOOD SPECIMENOrdering Facility: [facility] Address: [address] [place] [address] Performed By: #### 5 7021-8 ####[facility]OSPITALLIA [id number] [place] [address] [place] Neutrophils/100 WBC (Bld) 62.0 % Normal [facility] Comment on above: Order Comment: Speci men Type: BLOOD SPECIMENOrdering Facility: [facility] Address: [address] [place] [address] Performed By: #### 5 7021-8 ####[facility]OSPITALLIA [id number] [place] [address] [place] Nucleated RBC (Bld) [#/Vol] 10*3/uL Normal <0.01 [facility] Comment on above: Order Comment: Speci men Type: BLOOD SPECIMENOrdering Facility: [facility] Address: [address] [place] [address] Performed By: #### 5 7021-8 ####[facility] [id number] [place] [address] [place] Nucleated RBC/100 WBC (Bld) [Ratio] 0.0 /100 WBC Normal [facility] Comment on above: Order Comment: Speci men Type: BLOOD SPECIMENOrdering Facility: [facility] Address: [address] [place] [address] Performed By: #### 5 7021-8 ####[facility] [id number] [place] [address] [place] Platelet mean volume (Bld) [Entitic vol] 11.5 fL Normal 9.0-12.7 [facility] Comment on above: Order Comment: Speci men Type: BLOOD SPECIMENOrdering Facility: [facility] Address: [address] [place] [address] Performed By: #### 5 7021-8 ####[facility] [id number] [place] [address] [place] Platelets (Bld) [#/Vol] 275 10*3/uL Normal 150-400 [facility] Comment on above: Order Comment: Speci men Type: BLOOD SPECIMENOrdering Facility: [facility] Address: [address] [place] [address] Performed By: #### 5 7021-8 ####[facility]ITALNCVA [facility]OSPITAL [id number] [place] [address] [place] RBC (Bld) [#/Vol] 2.66 10*6/uL Low 4.20-6.00 [facility] Comment on above: Order Comment: Speci men Type: BLOOD SPECIMENOrdering Facility: [facility] Address: [address] [place] [address] Performed By: #### 5 7021-8 ####[facility] JONHWNCLIA [id number] [place] [address] [place] WBC (Bld) [#/Vol] 5.22 10*3/uL Normal 3.70-11.00 [facility] Comment on above: Order Comment: Speci men Type: BLOOD SPECIMENOrdering Facility: [facility] Address: [address] [place] [address] Performed By: #### 5 7021-8 ####[facility] HOSPITALNCA [id number] [place] [address] [place] CNOVSPon 01-06-2025 CNOVSP Normal [facility] Comprehensive metabolic 2000 panelon 01-06-2025 Albumin [Mass/Vol] 4.1 g/dL Normal 3.9-4.9 [facility] Comment on above: Order Comment: Speci men Type: BLOOD SPECIMENOrdering Facility: [facility] Address: [address] [place] [address] Performed By: #### 2 4323-8 ####[facility] HOSPITALNCLIA [id number] [place] [address] [place] ALP [Catalytic activity/Vol] 84 U/L Normal 38-113 [facility] Comment on above: Order Comment: Speci men Type: BLOOD SPECIMENOrdering Facility: [facility] Address: [address] [place] [address] Performed By: #### 2 4323-8 ####[facility] HOSPITALWNCLIA [id number] [place] [address] [place] ALT [Catalytic activity/Vol] 17 U/L Normal 10-54 [facility] Comment on above: Order Comment: Speci men Type: BLOOD SPECIMENOrdering Facility: [facility] Address: [address] [place] [address] Performed By: #### 2 4323-8 ####[facility] MARVA MILLTOWNCLIA [id number] [place] [address] [place] Anion gap [Moles/Vol] 11 mmol/L Normal 8-15 [facility] Comment on above: Order Comment: Speci men Type: BLOOD SPECIMENOrdering Facility: [facility] Address: [address] [place] [address] Performed By: #### 2 4323-8 ####[facility] MARVA MILLTOWNCLIA [id number] [place] [address] [place] AST [Catalytic activity/Vol] 24 U/L Normal 14-40 [facility] Comment on above: Order Comment: Speci men Type: BLOOD SPECIMENOrdering Facility: [facility] Address: [address] [place] [address] Performed By: #### 2 4323-8 ####[facility] MARVA MILLTOWNCLIA [id number] [place] [address] [place] Bilirubin [Mass/Vol] 1.4 mg/dL High 0.2-1.3 [facility] Comment on above: Order Comment: Speci men Type: BLOOD SPECIMENOrdering Facility: [facility] Address: [address] [place] [address] Performed By: #### 2 4323-8 ####[facility] MARVA MILLTOWNCLIA [id number] [place] [address] [place] Calcium [Mass/Vol] 9.1 mg/dL Normal 8.5-10.2 [facility] Comment on above: Order Comment: Speci men Type: BLOOD SPECIMENOrdering Facility: [facility] Address: [address] [place] [address] Performed By: #### 2 4323-8 ####[facility] MARVA MILLTOWNCLIA [id number] [place] [address] [place] Chloride [Moles/Vol] 103 mmol/L Normal 98-107 [facility] Comment on above: Order Comment: Speci men Type: BLOOD SPECIMENOrdering Facility: [facility] Address: [address] [place] [address] Performed By: #### 2 4323-8 ####[facility] JONHFRANCISCAN HEALTH MOORESVILLELIA [id number] [place] [address] [place] CO2 [Moles/Vol] 28 mmol/L Normal 22-30 [facility] Comment on above: Order Comment: Speci men Type: BLOOD SPECIMENOrdering Facility: [facility] Address: [address] [place] [address] Performed By: #### 2 4323-8 ####[facility] [id number] [place] [address] [place] [facility] Creatinine [Mass/Vol] 0.93 mg/dL Normal 0.73-1.22 [facility] Comment on above: Order Comment: Speci men Type: BLOOD SPECIMENOrdering Facility: [facility] Address: [address] [place] [address] Performed By: #### 2 4323-8 ####[facility] HOSPITALNCLI [id number] [address] OF [place] [facility] Creatinine and Glomerular filtration rate.predicted panel (S/P/Bld) 78 mL/min/1.73m??? Normal >=60 [facility] Comment on above: Order Comment: Speci men Type: BLOOD SPECIMENOrdering Facility: [facility] Address: [address] [place] [address] Result Comment: Concepción mated Glomerular Filtration Rate [...] Performed By: #### 2 4323-8 ####[facility] HOSPITALNCLIA [id number] [place] [address] [place] Glucose [Mass/Vol] 78 mg/dL Normal 74-99 [facility] Comment on above: Order Comment: Speci men Type: BLOOD SPECIMENOrdering Facility: [facility] Address: [address] [place] [address] Result Comment: The Citizen Of [place] Diabetes Association (ADA) provides guidance for cutoff [...] Standards of Medical Care in Diabetes 2016, Citizen Of [place] Diabetes Association. Diabetes Care. 2016.39(Suppl 1). Performed By: #### 2 4323-8 ####[facility] HOSPITALNCLIA [id number] [place] [address] [place] Potassium [Moles/Vol] 4.4 mmol/L Normal 3.7-5.1 [facility] Comment on above: Order Comment: Elfego gilbert Type: BLOOD SPECIMENOrdering Facility: [facility] Address: [address] [place] [address] Performed By: #### 2 4323-8 ####[facility] [id number] [place] [address] [place] Protein [Mass/Vol] 6.7 g/dL Normal 6.3-8.0 [facility] Comment on above: Order Comment: Elfego gilbert Type: BLOOD SPECIMENOrdering Facility: [facility] Address: [address] [place] [address] Performed By: #### 2 4323-8 ####[facility] [id number] [place] [address] [place] Sodium [Moles/Vol] 142 mmol/L Normal 136-144 [facility] Comment on above: Order Comment: Speci men Type: BLOOD SPECIMENOrdering Facility: [facility] Address: [address] [place] [address] Performed By: #### 2 4323-8 ####[facility] [id number] [place] [address] [place] Urea nitrogen [Mass/Vol] 29 mg/dL High 9-24 [facility] Comment on above: Order Comment: Speci men Type: BLOOD SPECIMENOrdering Facility: [facility] Address: [address] [place] [address] Performed By: #### 2 4323-8 ####[facility] [id number] [place] [address] [place] EPO SerPl-aCncon 01-06-2025 Erythropoietin (EPO) Qn 136.9 mIU/mL High 2.6-18.5 [facility] Comment on above: Order Comment: Speci men Type: BLOOD SPECIMENOrdering Facility: [facility] Address: [address] [place] [address] Performed By: #### 1 5061-5 ####[facility] LABCLIA [id number] [place] [address] [place] Ferritin SerPl-mCncon 2024 Ferritin [Mass/Vol] 551.0 ng/mL Normal 30.3-565.7 [facility] Comment on above: Order Comment: Speci men Type: BLOOD SPECIMENOrdering Facility: [facility] Address: [address] [place] [address] Performed By: #### 2 284-8, 2132-9, 87976-2, 2276-4 ####[facility] LABORATORYCLIA [id number] [place] [address] [place] Folate SerPl-ncon 01-06-20 25 Folate [Mass/Vol] ng/mL Normal >4.7 [facility] Comment on above: Order Comment: Speci men Type: BLOOD SPECIMENOrdering Facility: [facility] Address: [address] [place] [address] Result Comment: A re sult of > 20 ng/mL is not necessarily indicative of a pathologic or treatable condition: it reflects a limitation of the test methodology.Assay reference range: 4.8 to 24.2 ng/mL. Suitable for detection of folate deficiency.Reference:Folate III (Folate III) [package insert V 1.0 [place]]. [facility], [place], [place]: September 2015. Performed By: #### 2 284-8, 2-9, 83686-9, 6-4 ####[facility] LABORATORYCLIA [id number] [place] [address] [place] Iron and Iron binding capaci panel 01-06-2025 Iron [Mass/Vol] 155 ug/dL Normal 41-186 [facility] Comment on above: Order Comment: Speci men Type: BLOOD SPECIMENOrdering Facility: [facility] Address: [address] [place] [address] Performed By: #### 2 284-8, 2132-9, 62834-0, 6-4 ####[facility] LABORATORYCLIA [id number] [place] [address] [place] Iron binding capacity [Mass/Vol] 172 ug/dL Low 232-386 [facility] Comment on above: Order Comment: Speci men Type: BLOOD SPECIMENOrdering Facility: [facility] Address: [address] [place] [address] Performed By: #### 2 284-8, 2132-9, 01227-6, 6-4 ####[facility] LABORATORYCLIA [id number] [address] [place] Iron saturation [Mass fraction] 90.1 % High 15.0-57.0 [facility] Comment on above: Order Comment: Speci men Type: BLOOD SPECIMENOrdering Facility: [facility] Address: [address] [place] [address] Performed By: #### 2 284-8, 2132-9, 05201-2, 6-4 ####[facility] LABORATORYCLIA [id number] [address] Methylmalonate SerPl-sCncon 01-06-2025 Methylmalonate [Moles/Vol] 0.21 umol/L Normal <=0.40 [facility] Comment on above: Order Comment: Elfego vladimir Type: BLOOD SPECIMENOrdering Facility: [facility] Address: [address] [place] [address] Result Comment: This test was developed, and its performance characteristics determined by the [facility] Department of Pathology and Laboratory Medicine. It has not been cleared or approved by the FDA. The [facility] Department of Pathology and Laboratory Medicine is regulated under CLIA as qualified to perform high-complexity testing. This test is used for clinical purposes. It should not be regarded as investigational or for research. Performed By: #### 1 3964-2 ####[facility] LABCLIA [id number] [address] [place] Vit B12 SerPl-mCncon 025 Cobalamin (Vitamin B12) [Mass/Vol] 768 pg/mL Normal 232-1245 [facility] Comment on above: Order Comment: Speci men Type: BLOOD SPECIMENOrdering Facility: [facility] Address: [address] [place] [address] Performed By: #### 2 284-8, 2132-9, 71192-8, 6-4 ####[facility] LABORATORYCLIA [id number] [address] [place] CNOVon 12-30-2024 CNOV Office Visit ([facility] ) -- KIERRASRINI ([id number]) 1935 M Date Time Provider Department 12/30/24 2:15 PM [facility] DEVICE [address] During your visit today, we recorded the following information about you: Israel Minor MD 01/08/2025 10:00 PM Signed Dual Pacer Remote Check Date: December 30, 2024 Time: 2:51 PM Devices: Implants Ra Lead Biotronik-09/17/2022 - Implanted Heart Model/Cat number: ADAIR Pena [id number] Serial number: [id number] Child Care: [employer] Lot number: LEFT AXILLARY VEIN Size: Right Atrial Pacing Lead Rv Lead Biotronik-09/17/2022 - Implanted Heart Model/Cat number: ADAIR Pena 60 [id number] Serial number: [id number] Child Care: [employer] Lot number: LEFT CEPHALIC VEIN Size: Right Ventricular Pacing Lead Pacemaker Dual Pacer Biotronik-09/17/2022 - Implanted (Left) Chest Wall Model/Cat number: EDORA 8 [id number]-T [id number] Serial number: [id number] Child Care: [employer] Lot number: INITIAL DUAL PACER IMPLANT. Size: [...] and provider appointment. View External Cardiology - Development Advisor Strips [ID [id number]] Allergies As of Date: 12/30/2024 Noted Allergy [...] by this patient by: DAUGHTER Ten Weber, [facility] Problem List As Of Date 12/30/2024 Noted [...] Seborrheic Essie (more content not included)... Normal [facility] CBC W Auto Differential pane l (Bld)on 12-23-2024 Basophils (Bld) [#/Vol] 0.06 10*3/uL Normal <0.11 [facility] Comment on above: Order Comment: Speci men Type: BLOOD SPECIMENOrdering Facility: [facility] Address: [address] [place] [address] [place] [address] Performed By: #### 5 7021-8 ####[facility] MILLIVANAWNCLIA [id number] [place] [address] [place] Basophils/100 WBC (Bld) 1.2 % Normal [facility] Comment on above: Order Comment: Speci men Type: BLOOD SPECIMENOrdering Facility: [facility] Address: [address] [place] [address] Performed By: #### 5 7021-8 ####[facility] JONHWNCLIA [id number] [place] [address] [place] Differential cell count method Nom (Bld) Auto Normal [facility] Comment on above: Order Comment: Speci men Type: BLOOD SPECIMENOrdering Facility: [facility] Address: [address] [place] [address] Performed By: #### 5 7021-8 ####[facility] JONHFOOSLANDROBERTLIA [id number] [place] [address] [place] Eosinophils (Bld) [#/Vol] 0.18 10*3/uL Normal <0.46 [facility] Comment on above: Order Comment: Speci men Type: BLOOD SPECIMENOrdering Facility: [facility] Address: [address] [place] [address] Performed By: #### 5 7021-8 ####[facility] JONHSOLIA [id number] [place] [address] [place] Eosinophils/100 WBC (Bld) 3.7 % Normal [facility] Comment on above: Order Comment: Speci men Type: BLOOD SPECIMENOrdering Facility: [facility] Address: [address] [place] [address] Performed By: #### 5 7021-8 ####[facility] JONHFOOSLANDROBERTLIA [id number] [place] [address] [place] Erythrocyte distribution width (RBC) [Ratio] 20.5 % High 11.5-15.0 [facility] Comment on above: Order Comment: Speci men Type: BLOOD SPECIMENOrdering Facility: [facility] Address: [address] [place] [address] Performed By: #### 5 7021-8 ####[facility]ITALNCLI [id number] [place] [address] [place] Hematocrit (Bld) [Volume fraction] 28.7 % Low 39.0-51.0 [facility] Comment on above: Order Comment: Speci men Type: BLOOD SPECIMENOrdering Facility: [facility] Address: [address] [place] [address] Performed By: #### 5 7021-8 ####[facility] HOSPITALNCLIA [id number] [place] [address] [place] Hemoglobin (Bld) [Mass/Vol] 9.7 g/dL Low 13.0-17.0 [facility] Comment on above: Order Comment: Speci men Type: BLOOD SPECIMENOrdering Facility: [facility] Address: [address] [place] [address] Performed By: #### 5 7021-8 ####[facility]PITALNCLIA [id number] [place] [address] [place] Immature granulocytes (Bld) [#/Vol] 10*3/uL Normal <0.10 [facility] Comment on above: Order Comment: Speci men Type: BLOOD SPECIMENOrdering Facility: [facility] Address: [address] [place] [address] Performed By: #### 5 7021-8 ####[facility]ITALNCLIA [id number] [place] [address] [place] Immature granulocytes/100 WBC (Bld) 0.4 % Normal [facility] Comment on above: Order Comment: Speci men Type: BLOOD SPECIMENOrdering Facility: [facility] Address: [address] [place] [address] Performed By: #### 5 7021-8 ####[facility] MILLTOWNCLIA [id number] [place] [address] [place] Lymphocytes (Bld) [#/Vol] 1.06 10*3/uL Normal 1.00-4.00 [facility] Comment on above: Order Comment: Speci men Type: BLOOD SPECIMENOrdering Facility: [facility] Address: [address] [place] [address] Performed By: #### 5 7021-8 ####[facility]ITALNCLIA [id number] [place] [address] [place] Lymphocytes/100 WBC (Bld) 21.8 % Normal [facility] Comment on above: Order Comment: Speci men Type: BLOOD SPECIMENOrdering Facility: [facility] Address: [address] [place] [address] Performed By: #### 5 7021-8 ####[facility]ITALNCLIA [id number] [place] [address] [place] MCH (RBC) [Entitic mass] 36.6 pg High 26.0-34.0 [facility] Comment on above: Order Comment: Speci men Type: BLOOD SPECIMENOrdering Facility: [facility] Address: [address] [place] [address] Performed By: #### 5 7021-8 ####[facility]ITALNCLIA [id number] [place] [address] [place] MCHC (RBC) [Mass/Vol] 33.8 g/dL Normal 30.5-36.0 [facility] Comment on above: Order Comment: Speci men Type: BLOOD SPECIMENOrdering Facility: [facility] Address: [address] [place] [address] Performed By: #### 5 7021-8 ####[facility] [id number] [place] [address] [place] MCV (RBC) [Entitic vol] 108.3 fL High 80.0-100.0 [facility] Comment on above: Order Comment: Speci men Type: BLOOD SPECIMENOrdering Facility: [facility] Address: [address] [place] [address] Performed By: #### 5 7021-8 ####[facility] [id number] [place] [address] [place] Monocytes (Bld) [#/Vol] 0.69 10*3/uL Normal <0.87 [facility] Comment on above: Order Comment: Speci men Type: BLOOD SPECIMENOrdering Facility: [facility] Address: [address] [place] [address] Performed By: #### 5 7021-8 ####[facility] [id number] [place] [address] [place] Monocytes/100 WBC (Bld) 14.2 % Normal [facility] Comment on above: Order Comment: Speci men Type: BLOOD SPECIMENOrdering Facility: [facility] Address: [address] [place] [address] Performed By: #### 5 7021-8 ####[facility]OSPITALLIA [id number] [place] [address] [place] Neutrophils (Bld) [#/Vol] 2.86 10*3/uL Normal 1.45-7.50 [facility] Comment on above: Order Comment: Speci men Type: BLOOD SPECIMENOrdering Facility: [facility] Address: [address] [place] [address] Performed By: #### 5 7021-8 ####[facility]PITALL[facility] [id number] [place] [address] [place] Neutrophils/100 WBC (Bld) 58.7 % Normal [facility] Comment on above: Order Comment: Speci men Type: BLOOD SPECIMENOrdering Facility: [facility] Address: [address] [place] [address] Performed By: #### 5 7021-8 ####[facility] JONHFOOSLANDKOSTA [id number] [place] [address] [place] Nucleated RBC (Bld) [#/Vol] 10*3/uL Normal <0.01 [facility] Comment on above: Order Comment: Speci men Type: BLOOD SPECIMENOrdering Facility: [facility] Address: [address] [place] [address] Performed By: #### 5 7021-8 ####[facility] [id number] [place] [address] [place] Nucleated RBC/100 WBC (Bld) [Ratio] 0.0 /100 WBC Normal [facility] Comment on above: Order Comment: Speci men Type: BLOOD SPECIMENOrdering Facility: [facility] Address: [address] [place] [address] Performed By: #### 5 7021-8 ####[facility] [id number] [place] [address] [place] Platelet mean volume (Bld) [Entitic vol] 10.9 fL Normal 9.0-12.7 [facility] Comment on above: Order Comment: Speci men Type: BLOOD SPECIMENOrdering Facility: [facility] Address: [address] [place] [address] Performed By: #### 5 7021-8 ####[facility] [id number] [place] [address] [place] Platelets (Bld) [#/Vol] 238 10*3/uL Normal 150-400 [facility] Comment on above: Order Comment: Speci men Type: BLOOD SPECIMENOrdering Facility: [facility] Address: [address] [place] [address] Performed By: #### 5 7021-8 ####[facility]PITALNCLIA [id number] [place] [address] [place] RBC (Bld) [#/Vol] 2.65 10*6/uL Low 4.20-6.00 [facility] Comment on above: Order Comment: Speci men Type: BLOOD SPECIMENOrdering Facility: [facility] Address: [address] [place] [address] Performed By: #### 5 7021-8 ####[facility]ITALNCLIA [id number] [place] [address] [place] WBC (Bld) [#/Vol] 4.87 10*3/uL Normal 3.70-11.00 [facility] Comment on above: Order Comment: Speci men Type: BLOOD SPECIMENOrdering Facility: [facility] Address: [address] [place] [address] Performed By: #### 5 7021-8 ####[facility]ITALNCLIA [id number] [place] [address] [place] CBC W Auto Differential pane l (Bld)on 12-09-2024 Basophils (Bld) [#/Vol] 0.05 10*3/uL Normal <0.11 [facility] Comment on above: Order Comment: Speci men Type: BLOOD SPECIMENOrdering Facility: [facility] Address: [address] [place] [address] Performed By: #### 5 7021-8 ####[facility]ITALNCLIA [id number] [place] [address] [place] Basophils/100 WBC (Bld) 0.9 % Normal [facility] Comment on above: Order Comment: Speci men Type: BLOOD SPECIMENOrdering Facility: [facility] Address: [address] [place] [address] Performed By: #### 5 7021-8 ####[facility]ITALNCLIA [id number] [place] [address] [place] Differential cell count method Nom (Bld) Auto Normal [facility] Comment on above: Order Comment: Speci men Type: BLOOD SPECIMENOrdering Facility: [facility] Address: [address] [place] [address] Performed By: #### 5 7021-8 ####[facility]ITALROBERTVA HOSPITAL [id number] [place] [address] [place] Eosinophils (Bld) [#/Vol] 0.13 10*3/uL Normal <0.46 [facility] Comment on above: Order Comment: Speci men Type: BLOOD SPECIMENOrdering Facility: [facility] Address: [address] [place] [address] Performed By: #### 5 7021-8 ####[facility] [id number] [place] [address] [place] Eosinophils/100 WBC (Bld) 2.3 % Normal [facility] Comment on above: Order Comment: Speci men Type: BLOOD SPECIMENOrdering Facility: [facility] Address: [address] [place] [address] Performed By: #### 5 7021-8 ####[facility]ITALNCVA [facility]OSP[facility] [id number] [place] [address] [place] Erythrocyte distribution width (RBC) [Ratio] 20.4 % High 11.5-15.0 [facility] Comment on above: Order Comment: Speci men Type: BLOOD SPECIMENOrdering Facility: [facility] Address: [address] [place] [address] Performed By: #### 5 7021-8 ####[facility]ITALNCLIA [id number] [place] [address] [place] Hematocrit (Bld) [Volume fraction] 29.1 % Low 39.0-51.0 [facility] Comment on above: Order Comment: Speci men Type: BLOOD SPECIMENOrdering Facility: [facility] Address: [address] [place] [address] Performed By: #### 5 7021-8 ####[facility]ITALNCV[facility] [id number] [place] [address] [place] Hemoglobin (Bld) [Mass/Vol] 9.6 g/dL Low 13.0-17.0 [facility] Comment on above: Order Comment: Speci men Type: BLOOD SPECIMENOrdering Facility: [facility] Address: [address] [place] [address] Performed By: #### 5 7021-8 ####[facility] [id number] [place] [address] [place] Immature granulocytes (Bld) [#/Vol] 10*3/uL Normal <0.10 [facility] Comment on above: Order Comment: Speci men Type: BLOOD SPECIMENOrdering Facility: [facility] Address: [address] [place] [address] Performed By: #### 5 7021-8 ####[facility] [id number] [place] [address] [place] Immature granulocytes/100 WBC (Bld) 0.3 % Normal [facility] Comment on above: Order Comment: Speci men Type: BLOOD SPECIMENOrdering Facility: [facility] Address: [address] [place] [address] Performed By: #### 5 7021-8 ####[facility] [id number] [place] [address] [place] Lymphocytes (Bld) [#/Vol] 1.12 10*3/uL Normal 1.00-4.00 [facility] Comment on above: Order Comment: Speci men Type: BLOOD SPECIMENOrdering Facility: [facility] Address: [address] [place] [address] Performed By: #### 5 7021-8 ####[facility] HOSPITALKOSTA [id number] [place] [address] [place] Lymphocytes/100 WBC (Bld) 19.5 % Normal [facility] Comment on above: Order Comment: Speci men Type: BLOOD SPECIMENOrdering Facility: [facility] Address: [address] [place] [address] Performed By: #### 5 7021-8 ####[facility] [id number] [place] [address] [place] MCH (RBC) [Entitic mass] 36.6 pg High 26.0-34.0 [facility] Comment on above: Order Comment: Speci men Type: BLOOD SPECIMENOrdering Facility: [facility] Address: [address] [place] [address] Performed By: #### 5 7021-8 ####[facility] [id number] [place] [address] [place] MCHC (RBC) [Mass/Vol] 33.0 g/dL Normal 30.5-36.0 [facility] Comment on above: Order Comment: Speci men Type: BLOOD SPECIMENOrdering Facility: [facility] Address: [address] [place] [address] Performed By: #### 5 7021-8 ####[facility]ITALNCLIA [id number] [place] [address] [place] MCV (RBC) [Entitic vol] 111.1 fL High 80.0-100.0 [facility] Comment on above: Order Comment: Speci men Type: BLOOD SPECIMENOrdering Facility: [facility] Address: [address] [place] [address] Performed By: #### 5 7021-8 ####[facility]PITALWNCLIA [id number] [place] [address] [place] Monocytes (Bld) [#/Vol] 0.82 10*3/uL Normal <0.87 [facility] Comment on above: Order Comment: Speci men Type: BLOOD SPECIMENOrdering Facility: [facility] Address: [address] [place] [address] Performed By: #### 5 7021-8 ####[facility] [id number] [place] [address] [place] Monocytes/100 WBC (Bld) 14.3 % Normal [facility] Comment on above: Order Comment: Speci men Type: BLOOD SPECIMENOrdering Facility: [facility] Address: [address] [place] [address] Performed By: #### 5 7021-8 ####[facility] [id number] [place] [address] [place] Neutrophils (Bld) [#/Vol] 3.61 10*3/uL Normal 1.45-7.50 [facility] Comment on above: Order Comment: Speci men Type: BLOOD SPECIMENOrdering Facility: [facility] Address: [address] [place] [address] Performed By: #### 5 7021-8 ####[facility]OSPITALL[facility] [id number] [place] [address] [place] Neutrophils/100 WBC (Bld) 62.7 % Normal [facility] Comment on above: Order Comment: Speci men Type: BLOOD SPECIMENOrdering Facility: [facility] Address: [address] [place] [address] Performed By: #### 5 7021-8 ####[facility]OSPITALL[facility] [id number] [place] [address] [place] Nucleated RBC (Bld) [#/Vol] 0.02 10*3/uL High <0.01 [facility] Comment on above: Order Comment: Speci men Type: BLOOD SPECIMENOrdering Facility: [facility] Address: [address] [place] [address] Performed By: #### 5 7021-8 ####[facility]OSPITALNCLI [id number] [place] [address] [place] Nucleated RBC/100 WBC (Bld) [Ratio] 0.3 /100 WBC Normal [facility] Comment on above: Order Comment: Speci men Type: BLOOD SPECIMENOrdering Facility: [facility] Address: [address] [place] [address] Performed By: #### 5 7021-8 ####[facility] [id number] [place] [address] [place] Platelet mean volume (Bld) [Entitic vol] 10.7 fL Normal 9.0-12.7 [facility] Comment on above: Order Comment: Speci men Type: BLOOD SPECIMENOrdering Facility: [facility] Address: [address] [place] [address] Performed By: #### 5 7021-8 ####[facility]ITALNCLIA [id number] [place] [address] [place] Platelets (Bld) [#/Vol] 261 10*3/uL Normal 150-400 [facility] Comment on above: Order Comment: Speci men Type: BLOOD SPECIMENOrdering Facility: [facility] Address: [address] [place] [address] Performed By: #### 5 7021-8 ####[facility] [id number] [place] [address] [place] RBC (Bld) [#/Vol] 2.62 10*6/uL Low 4.20-6.00 [facility] Comment on above: Order Comment: Speci men Type: BLOOD SPECIMENOrdering Facility: [facility] Address: [address] [place] [address] Performed By: #### 5 7021-8 ####[facility] [id number] [place] [address] [place] WBC (Bld) [#/Vol] 5.75 10*3/uL Normal 3.70-11.00 [facility] Comment on above: Order Comment: Speci men Type: BLOOD SPECIMENOrdering Facility: [facility] Address: [address] [place] [address] Performed By: #### 5 7021-8 ####[facility] [id number] [place] [address] [place] CNPNon 11-25-2024 CNPN Normal [facility] CBC W Auto Differential pane l (Bld)on 11-24-2024 Basophils (Bld) [#/Vol] 0.06 10*3/uL Normal <0.11 [facility] Comment on above: Order Comment: Speci men Type: BLOOD SPECIMENOrdering Facility: [facility] Address: [address] [place] [address] Performed By: #### 5 7021-8 ####[facility] HOSPITALNCA [id number] [place] [address] [place] Basophils/100 WBC (Bld) 0.9 % Normal [facility] Comment on above: Order Comment: Speci men Type: BLOOD SPECIMENOrdering Facility: [facility] Address: [address] [place] [address] Performed By: #### 5 7021-8 ####[facility] [id number] [place] [address] [place] Differential cell count method Nom (Bld) Auto Normal [facility] Comment on above: Order Comment: Speci men Type: BLOOD SPECIMENOrdering Facility: [facility] Address: [address] [place] [address] Performed By: #### 5 7021-8 ####[facility] MILLWNCLIA [id number] [place] [address] [place] Eosinophils (Bld) [#/Vol] 0.10 10*3/uL Normal <0.46 [facility] Comment on above: Order Comment: Speci men Type: BLOOD SPECIMENOrdering Facility: [facility] Address: [address] [place] [address] Performed By: #### 5 7021-8 ####[facility]PITALWNCLIA [id number] [place] [address] [place] Eosinophils/100 WBC (Bld) 1.5 % Normal [facility] Comment on above: Order Comment: Speci men Type: BLOOD SPECIMENOrdering Facility: [facility] Address: [address] [place] [address] Performed By: #### 5 7021-8 ####[facility]ITALNCLIA [id number] [place] [address] [place] Erythrocyte distribution width (RBC) [Ratio] 19.7 % High 11.5-15.0 [facility] Comment on above: Order Comment: Speci men Type: BLOOD SPECIMENOrdering Facility: [facility] Address: [address] [place] [address] Performed By: #### 5 7021-8 ####[facility]PITALWNCLIA [id number] [place] [address] [place] Hematocrit (Bld) [Volume fraction] 26.5 % Low 39.0-51.0 [facility] Comment on above: Order Comment: Speci men Type: BLOOD SPECIMENOrdering Facility: [facility] Address: [address] [place] [address] Performed By: #### 5 7021-8 ####[facility]ITALNCLIA [id number] [place] [address] [place] Hemoglobin (Bld) [Mass/Vol] 8.8 g/dL Low 13.0-17.0 [facility] Comment on above: Order Comment: Speci men Type: BLOOD SPECIMENOrdering Facility: [facility] Address: [address] [place] [address] Performed By: #### 5 7021-8 ####[facility] [id number] [place] [address] [place] Immature granulocytes (Bld) [#/Vol] 0.03 10*3/uL Normal <0.10 [facility] Comment on above: Order Comment: Speci men Type: BLOOD SPECIMENOrdering Facility: [facility] Address: [address] [place] [address] Performed By: #### 5 7021-8 ####[facility] [id number] [place] [address] [place] Immature granulocytes/100 WBC (Bld) 0.5 % Normal [facility] Comment on above: Order Comment: Speci men Type: BLOOD SPECIMENOrdering Facility: [facility] Address: [address] [place] [address] Performed By: #### 5 7021-8 ####[facility] [id number] [place] [address] [place] Lymphocytes (Bld) [#/Vol] 1.04 10*3/uL Normal 1.00-4.00 [facility] Comment on above: Order Comment: Speci men Type: BLOOD SPECIMENOrdering Facility: [facility] Address: [address] [place] [address] Performed By: #### 5 7021-8 ####[facility] [id number] [place] [address] [place] Lymphocytes/100 WBC (Bld) 16.0 % Normal [facility] Comment on above: Order Comment: Speci men Type: BLOOD SPECIMENOrdering Facility: [facility] Address: [address] [place] [address] Performed By: #### 5 7021-8 ####[facility] [id number] [place] [address] [place] MCH (RBC) [Entitic mass] 37.9 pg High 26.0-34.0 [facility] Comment on above: Order Comment: Speci men Type: BLOOD SPECIMENOrdering Facility: [facility] Address: [address] [place] [address] Performed By: #### 5 7021-8 ####[facility] [id number] [place] [address] [place] MCHC (RBC) [Mass/Vol] 33.2 g/dL Normal 30.5-36.0 [facility] Comment on above: Order Comment: Speci men Type: BLOOD SPECIMENOrdering Facility: [facility] Address: [address] [place] [address] Performed By: #### 5 7021-8 ####[facility]ITALNCLIA [id number] [place] [address] [place] MCV (RBC) [Entitic vol] 114.2 fL High 80.0-100.0 [facility] Comment on above: Order Comment: Speci men Type: BLOOD SPECIMENOrdering Facility: [facility] Address: [address] [place] [address] Performed By: #### 5 7021-8 ####[facility] [id number] [place] [address] [place] Monocytes (Bld) [#/Vol] 0.79 10*3/uL Normal <0.87 [facility] Comment on above: Order Comment: Speci men Type: BLOOD SPECIMENOrdering Facility: [facility] Address: [address] [place] [address] Performed By: #### 5 7021-8 ####[facility] MILLWNCLIA [id number] [place] [address] [place] Monocytes/100 WBC (Bld) 12.2 % Normal [facility] Comment on above: Order Comment: Speci men Type: BLOOD SPECIMENOrdering Facility: [facility] Address: [address] [place] [address] Performed By: #### 5 7021-8 ####[facility]ITALNCLIA [id number] [place] [address] [place] Neutrophils (Bld) [#/Vol] 4.48 10*3/uL Normal 1.45-7.50 [facility] Comment on above: Order Comment: Speci men Type: BLOOD SPECIMENOrdering Facility: [facility] Address: [address] [place] [address] Performed By: #### 5 7021-8 ####[facility]ITALNCLIA [id number] [place] [address] [place] Neutrophils/100 WBC (Bld) 68.9 % Normal [facility] Comment on above: Order Comment: Speci men Type: BLOOD SPECIMENOrdering Facility: [facility] Address: [address] [place] [address] Performed By: #### 5 7021-8 ####[facility] MILLWNCLIA [id number] [place] [address] [place] Nucleated RBC (Bld) [#/Vol] 0.05 10*3/uL High <0.01 [facility] Comment on above: Order Comment: Speci men Type: BLOOD SPECIMENOrdering Facility: [facility] Address: [address] [place] [address] Performed By: #### 5 7021-8 ####[facility] [id number] [place] [address] [place] Nucleated RBC/100 WBC (Bld) [Ratio] 0.8 /100 WBC Normal [facility] Comment on above: Order Comment: Speci men Type: BLOOD SPECIMENOrdering Facility: [facility] Address: [address] [place] [address] Performed By: #### 5 7021-8 ####[facility] [id number] [place] [address] [place] Platelet mean volume (Bld) [Entitic vol] 10.2 fL Normal 9.0-12.7 [facility] Comment on above: Order Comment: Speci men Type: BLOOD SPECIMENOrdering Facility: [facility] Address: [address] [place] [address] Performed By: #### 5 7021-8 ####[facility] [id number] [place] [address] [place] Platelets (Bld) [#/Vol] 254 10*3/uL Normal 150-400 [facility] Comment on above: Order Comment: Speci men Type: BLOOD SPECIMENOrdering Facility: [facility] Address: [address] [place] [address] Performed By: #### 5 7021-8 ####[facility]OSPITALKOSTAA [id number] [place] [address] [place] RBC (Bld) [#/Vol] 2.32 10*6/uL Low 4.20-6.00 [facility] Comment on above: Order Comment: Speci men Type: BLOOD SPECIMENOrdering Facility: [facility] Address: [address] [place] [address] Performed By: #### 5 7021-8 ####[facility] HOSPITALNCLI [id number] [place] [address] [place] WBC (Bld) [#/Vol] 6.50 10*3/uL Normal 3.70-11.00 [facility] Comment on above: Order Comment: Speci men Type: BLOOD SPECIMENOrdering Facility: [facility] Address: [address] [place] [address] Performed By: #### 5 7021-8 ####[facility] HOSPITALROBERTLIA [id number] [place] [address] [place] CNPNon 11-16-2024 CNPN Normal [facility] CBC W Auto Differential pane l (Bld)on 11-15-2024 Basophils (Bld) [#/Vol] 0.05 10*3/uL Normal <0.11 [facility] Comment on above: Order Comment: Speci men Type: BLOOD SPECIMENOrdering Facility: [facility] Address: [address] [place] [address] Performed By: #### 5 7021-8 ####[facility] [id number] [place] [address] [place] Basophils/100 WBC (Bld) 1.0 % Normal [facility] Comment on above: Order Comment: Speci men Type: BLOOD SPECIMENOrdering Facility: [facility] Address: [address] [place] [address] Performed By: #### 5 7021-8 ####[facility] HOSPITALROBERTA [id number] [place] [address] [place] Differential cell count method Nom (Bld) Auto Normal [facility] Comment on above: Order Comment: Speci men Type: BLOOD SPECIMENOrdering Facility: [facility] Address: [address] [place] [address] Performed By: #### 5 7021-8 ####[facility] [id number] [place] [address] [place] Eosinophils (Bld) [#/Vol] 0.10 10*3/uL Normal <0.46 [facility] Comment on above: Order Comment: Speci men Type: BLOOD SPECIMENOrdering Facility: [facility] Address: [address] [place] [address] Performed By: #### 5 7021-8 ####[facility]ITAL[facility]CV[facility] [id number] [place] [address] [place] Eosinophils/100 WBC (Bld) 2.0 % Normal [facility] Comment on above: Order Comment: Speci men Type: BLOOD SPECIMENOrdering Facility: [facility] Address: [address] [place] [address] Performed By: #### 5 7021-8 ####[facility]ITAL[facility] [id number] [place] [address] [place] Erythrocyte distribution width (RBC) [Ratio] 19.6 % High 11.5-15.0 [facility] Comment on above: Order Comment: Speci men Type: BLOOD SPECIMENOrdering Facility: [facility] Address: [address] [place] [address] Performed By: #### 5 7021-8 ####[facility] [id number] [place] [address] [place] Hematocrit (Bld) [Volume fraction] 27.2 % Low 39.0-51.0 [facility] Comment on above: Order Comment: Speci men Type: BLOOD SPECIMENOrdering Facility: [facility] Address: [address] [place] [address] Performed By: #### 5 7021-8 ####[facility] HOSPITALNCLIA [id number] [place] [address] [place] Hemoglobin (Bld) [Mass/Vol] 9.1 g/dL Low 13.0-17.0 [facility] Comment on above: Order Comment: Speci men Type: BLOOD SPECIMENOrdering Facility: [facility] Address: [address] [place] [address] Performed By: #### 5 7021-8 ####[facility] MILLTOWNCLIA [id number] [place] [address] [place] Immature granulocytes (Bld) [#/Vol] 10*3/uL Normal <0.10 [facility] Comment on above: Order Comment: Speci men Type: BLOOD SPECIMENOrdering Facility: [facility] Address: [address] [place] [address] Performed By: #### 5 7021-8 ####[facility] MILLWNCLIA [id number] [place] [address] [place] Immature granulocytes/100 WBC (Bld) 0.2 % Normal [facility] Comment on above: Order Comment: Speci men Type: BLOOD SPECIMENOrdering Facility: [facility] Address: [address] [place] [address] Performed By: #### 5 7021-8 ####[facility]ITALL[facility] [id number] [place] [address] [place] Lymphocytes (Bld) [#/Vol] 1.15 10*3/uL Normal 1.00-4.00 [facility] Comment on above: Order Comment: Speci men Type: BLOOD SPECIMENOrdering Facility: [facility] Address: [address] [place] [address] Performed By: #### 5 7021-8 ####[facility] MILLTOWNCLIA [id number] [place] [address] [place] Lymphocytes/100 WBC (Bld) 22.7 % Normal [facility] Comment on above: Order Comment: Speci men Type: BLOOD SPECIMENOrdering Facility: [facility] Address: [address] [place] [address] Performed By: #### 5 7021-8 ####[facility] HOSPITALNCLIA [id number] [place] [address] [place] MCH (RBC) [Entitic mass] 37.9 pg High 26.0-34.0 [facility] Comment on above: Order Comment: Speci men Type: BLOOD SPECIMENOrdering Facility: [facility] Address: [address] [place] [address] Performed By: #### 5 7021-8 ####[facility] HOSPITALMALENA [id number] [place] [address] [place] MCHC (RBC) [Mass/Vol] 33.5 g/dL Normal 30.5-36.0 [facility] Comment on above: Order Comment: Speci men Type: BLOOD SPECIMENOrdering Facility: [facility] Address: [address] [place] [address] Performed By: #### 5 7021-8 ####[facility] HOSPITALROBERTManuel [id number] [place] [address] [place] MCV (RBC) [Entitic vol] 113.3 fL High 80.0-100.0 [facility] Comment on above: Order Comment: Speci men Type: BLOOD SPECIMENOrdering Facility: [facility] Address: [address] [place] [address] Performed By: #### 5 7021-8 ####[facility] HOSPITALMALENA [id number] [place] [address] [place] Monocytes (Bld) [#/Vol] 0.70 10*3/uL Normal <0.87 [facility] Comment on above: Order Comment: Speci men Type: BLOOD SPECIMENOrdering Facility: [facility] Address: [address] [place] [address] Performed By: #### 5 7021-8 ####[facility] HOSPITALNCLIA [id number] [place] [address] [place] Monocytes/100 WBC (Bld) 13.8 % Normal [facility] Comment on above: Order Comment: Speci men Type: BLOOD SPECIMENOrdering Facility: [facility] Address: [address] [place] [address] Performed By: #### 5 7021-8 ####[facility]ITALNCVA HOSP[facility] [id number] [place] [address] [place] Neutrophils (Bld) [#/Vol] 3.05 10*3/uL Normal 1.45-7.50 [facility] Comment on above: Order Comment: Speci men Type: BLOOD SPECIMENOrdering Facility: [facility] Address: [address] [place] [address] Performed By: #### 5 7021-8 ####[facility] [id number] [place] [address] [place] Neutrophils/100 WBC (Bld) 60.3 % Normal [facility] Comment on above: Order Comment: Speci men Type: BLOOD SPECIMENOrdering Facility: [facility] Address: [address] [place] [address] Performed By: #### 5 7021-8 ####[facility] [id number] [place] [address] [place] Nucleated RBC (Bld) [#/Vol] 0.03 10*3/uL High <0.01 [facility] Comment on above: Order Comment: Speci men Type: BLOOD SPECIMENOrdering Facility: [facility] Address: [address] [place] [address] Performed By: #### 5 7021-8 ####[facility] HOSPITALNCA [id number] [place] [address] [place] Nucleated RBC/100 WBC (Bld) [Ratio] 0.6 /100 WBC Normal [facility] Comment on above: Order Comment: Speci men Type: BLOOD SPECIMENOrdering Facility: [facility] Address: [address] [place] [address] Performed By: #### 5 7021-8 ####[facility] MEENAKSHIWNCLIA [id number] [place] [address] [place] Platelet mean volume (Bld) [Entitic vol] 11.2 fL Normal 9.0-12.7 [facility] Comment on above: Order Comment: Speci men Type: BLOOD SPECIMENOrdering Facility: [facility] Address: [address] [place] [address] Performed By: #### 5 7021-8 ####[facility] HOSPITALNCLIA [id number] [place] [address] [place] Platelets (Bld) [#/Vol] 283 10*3/uL Normal 150-400 [facility] Comment on above: Order Comment: Speci men Type: BLOOD SPECIMENOrdering Facility: [facility] Address: [address] [place], [place] [address] Performed By: #### 5 7021-8 ####[facility] HOSPITALNCLIA [id number] [place] [address] [place] RBC (Bld) [#/Vol] 2.40 10*6/uL Low 4.20-6.00 [facility] Comment on above: Order Comment: Speci men Type: BLOOD SPECIMENOrdering Facility: [facility] Address: [address] [place] [address] Performed By: #### 5 7021-8 ####[facility]OSPITALWNCLIA [id number] [place] [address] [place] WBC (Bld) [#/Vol] 5.06 10*3/uL Normal 3.70-11.00 [facility] Comment on above: Order Comment: Speci men Type: BLOOD SPECIMENOrdering Facility: [facility] Address: [address] [place] [address] Performed By: #### 5 7021-8 ####[facility] HOSPITALNCLIA [id number] [place] [address] [place] EPO SerPl-aCncon 11-15-2024 Erythropoietin (EPO) Qn 78.6 mIU/mL High 2.6-18.5 [facility] Comment on above: Order Comment: Speci men Type: BLOOD SPECIMENOrdering Facility: [facility] Address: [address] [place] [address] Performed By: #### 1 5061-5 ####[facility] LABCLIA [id number] [facility]ITALDES [id number] [address] [place] Parmjit 10-14-2024 [facility] -- SRINI LUIS ([id number]) 1935 M Date Time Provider Department 10/13/24 IRAM JOHNSON [facility] During your visit today, we recorded the following information about you: Iram Johnson, PRODUCT DEVELOPMENT MANAGER.[facility] 10/13/2024 8:16 AM Signed Let the patient [...] see me so we can schedule it. Sihlpa Abraham MA 10/13/2024 10:01 AM Signed Patient [...] by this patient by: DAUGHTER Ten Weber, [facility] Problem List As Of Date 10/13/2024 Noted [...] 06/16/2023 PAF (paroxysmal atrial fibrillation) (HCC) [I48*202007/23/2023 [facility] current use of anticoagulants with IN* 09/15/2022 Nocturnal hypoxemia [G47.34] 08/29/2022 PVC's (prematur (more content not included)... Normal [facility] Stress Reporton 10-12-2024 Stress Report [facility] [address] [place] [address] MR#: [id number] Acct: [id number] Name: SRINI LUIS Rep #: [id number] : 1935 88 From: Cristobal Villafuerte MD Primary Care: Care Physician,No Primary Status: REG CLI Referring Dr: Iram Johnson ETHICS MANAGER-C Sex: M C Stress Test Report Date: [...] is 43%. This note was generated with [employer] dictation software. It may contain incorrect words, spelling, and punctuation that were not noted in checking the note before signing. 10/12/24 1213 Date Cristobal Villafuerte MD CC: ZEE Johnson; No Primary Care Physician Date Dictated: 10/12/24 1201 Date Transcribed: 10/12/24 120 Audio Visual Aids Director: NN Signed Normal [facility] CBC W Auto Differential pane l (Bld)on 10-11-2024 Basophils (Bld) [#/Vol] 0.06 10*3/uL Normal <0.11 [facility] Comment on above: Order Comment: Speci men Type: BLOOD SPECIMENOrdering Facility: [facility] Address: [address] [place] [address] Performed By: #### 5 7021-8 ####[facility] MILLWNCLIA [id number] [place] [address] [place] Basophils/100 WBC (Bld) 1.0 % Normal [facility] Comment on above: Order Comment: Speci men Type: BLOOD SPECIMENOrdering Facility: [facility] Address: [address] [place] [address] Performed By: #### 5 7021-8 ####[facility]OSPITALLIA [id number] [place] [address] [place] Differential cell count method Nom (Bld) Auto Normal [facility] Comment on above: Order Comment: Speci men Type: BLOOD SPECIMENOrdering Facility: [facility] Address: [address] [place] [address] Performed By: #### 5 7021-8 ####[facility]OSPITALLIA [id number] [place] [address] [place] Eosinophils (Bld) [#/Vol] 0.12 10*3/uL Normal <0.46 [facility] Comment on above: Order Comment: Speci men Type: BLOOD SPECIMENOrdering Facility: [facility] Address: [address] [place] [address] Performed By: #### 5 7021-8 ####[facility]PITALL[facility] [id number] [place] [address] [place] Eosinophils/100 WBC (Bld) 2.1 % Normal [facility] Comment on above: Order Comment: Speci men Type: BLOOD SPECIMENOrdering Facility: [facility] Address: [address] [place] [address] Performed By: #### 5 7021-8 ####[facility] HOSPITALNCLIA [id number] [place] [address] [place] Erythrocyte distribution width (RBC) [Ratio] 19.7 % High 11.5-15.0 [facility] Comment on above: Order Comment: Speci men Type: BLOOD SPECIMENOrdering Facility: [facility] Address: [address] [place] [address] Performed By: #### 5 7021-8 ####[facility] [id number] [place] [address] [place] Hematocrit (Bld) [Volume fraction] 27.9 % Low 39.0-51.0 [facility] Comment on above: Order Comment: Speci men Type: BLOOD SPECIMENOrdering Facility: [facility] Address: [address] [place] [address] Performed By: #### 5 7021-8 ####[facility]ITALNCV[facility]OSP[facility] [id number] [place] [address] [place] Hemoglobin (Bld) [Mass/Vol] 9.2 g/dL Low 13.0-17.0 [facility] Comment on above: Order Comment: Speci men Type: BLOOD SPECIMENOrdering Facility: [facility] Address: [address] [place] [address] Performed By: #### 5 7021-8 ####[facility] [id number] [place] [address] [place] Immature granulocytes (Bld) [#/Vol] 10*3/uL Normal <0.10 [facility] Comment on above: Order Comment: Speci men Type: BLOOD SPECIMENOrdering Facility: [facility] Address: [address] [place] [address] Performed By: #### 5 7021-8 ####[facility] [id number] [place] [address] [place] Immature granulocytes/100 WBC (Bld) 0.2 % Normal [facility] Comment on above: Order Comment: Speci men Type: BLOOD SPECIMENOrdering Facility: [facility] Address: [address] [place] [address] Performed By: #### 5 7021-8 ####[facility] JONHJULIOA [id number] [place] [address] [place] Lymphocytes (Bld) [#/Vol] 1.08 10*3/uL Normal 1.00-4.00 [facility] Comment on above: Order Comment: Speci men Type: BLOOD SPECIMENOrdering Facility: [facility] Address: [address] [place] [address] Performed By: #### 5 7021-8 ####[facility] [id number] [place] [address] [place] Lymphocytes/100 WBC (Bld) 18.5 % Normal [facility] Comment on above: Order Comment: Speci men Type: BLOOD SPECIMENOrdering Facility: [facility] Address: [address] [place] [address] Performed By: #### 5 7021-8 ####[facility] HOSPITALROBERTRADHA [id number] [place] [address] [place] MCH (RBC) [Entitic mass] 37.6 pg High 26.0-34.0 [facility] Comment on above: Order Comment: Speci men Type: BLOOD SPECIMENOrdering Facility: [facility] Address: [address] [place] [address] Performed By: #### 5 7021-8 ####[facility]OSPITALLIA [id number] [place] [address] [place] MCHC (RBC) [Mass/Vol] 33.0 g/dL Normal 30.5-36.0 [facility] Comment on above: Order Comment: Speci men Type: BLOOD SPECIMENOrdering Facility: [facility] Address: [address] [place] [address] Performed By: #### 5 7021-8 ####[facility] JONHFRANCISCAN HEALTH MOORESVILLELIA [id number] [place] [address] [place] MCV (RBC) [Entitic vol] 113.9 fL High 80.0-100.0 [facility] Comment on above: Order Comment: Speci men Type: BLOOD SPECIMENOrdering Facility: [facility] Address: [address] [place] [address] Performed By: #### 5 7021-8 ####[facility] [id number] [place] [address] [place] Monocytes (Bld) [#/Vol] 0.84 10*3/uL Normal <0.87 [facility] Comment on above: Order Comment: Speci men Type: BLOOD SPECIMENOrdering Facility: [facility] Address: [address] [place] [address] Performed By: #### 5 7021-8 ####[facility] [id number] [place] [address] [place] Monocytes/100 WBC (Bld) 14.4 % Normal [facility] Comment on above: Order Comment: Speci men Type: BLOOD SPECIMENOrdering Facility: [facility] Address: [address] [place] [address] Performed By: #### 5 7021-8 ####[facility] [id number] [place] [address] [place] Neutrophils (Bld) [#/Vol] 3.74 10*3/uL Normal 1.45-7.50 [facility] Comment on above: Order Comment: Speci men Type: BLOOD SPECIMENOrdering Facility: [facility] Address: [address] [place] [address] Performed By: #### 5 7021-8 ####[facility]OSPITALLIA [id number] [place] [address] [place] Neutrophils/100 WBC (Bld) 63.8 % Normal [facility] Comment on above: Order Comment: Speci men Type: BLOOD SPECIMENOrdering Facility: [facility] Address: [address] [place] [address] Performed By: #### 5 7021-8 ####[facility]ITALNCVA HOSPITAL [id number] [place] [address] [place] Nucleated RBC (Bld) [#/Vol] 0.03 10*3/uL High <0.01 [facility] Comment on above: Order Comment: Speci men Type: BLOOD SPECIMENOrdering Facility: [facility] Address: [address] [place] [address] Performed By: #### 5 7021-8 ####[facility] [id number] [place] [address] [place] Nucleated RBC/100 WBC (Bld) [Ratio] 0.5 /100 WBC Normal [facility] Comment on above: Order Comment: Speci men Type: BLOOD SPECIMENOrdering Facility: [facility] Address: [address] [place] [address] Performed By: #### 5 7021-8 ####[facility] [id number] [place] [address] [place] Platelet mean volume (Bld) [Entitic vol] 11.1 fL Normal 9.0-12.7 [facility] Comment on above: Order Comment: Speci men Type: BLOOD SPECIMENOrdering Facility: [facility] Address: [address] [place] [address] Performed By: #### 5 7021-8 ####[facility] [id number] [place] [address] [place] Platelets (Bld) [#/Vol] 259 10*3/uL Normal 150-400 [facility] Comment on above: Order Comment: Speci men Type: BLOOD SPECIMENOrdering Facility: [facility] Address: [address] [place] [address] Performed By: #### 5 7021-8 ####[facility] JONHFOOSLANDNCLIA [id number] [place] [address] [place] RBC (Bld) [#/Vol] 2.45 10*6/uL Low 4.20-6.00 [facility] Comment on above: Order Comment: Speci men Type: BLOOD SPECIMENOrdering Facility: [facility] Address: [address] [place] [address] Performed By: #### 5 7021-8 ####[facility] JONHFOOSLANDNCLIA [id number] [place] [address] [place] WBC (Bld) [#/Vol] 5.85 10*3/uL Normal 3.70-11.00 [facility] Comment on above: Order Comment: Speci men Type: BLOOD SPECIMENOrdering Facility: [facility] Address: [address] [place] [address] Performed By: #### 5 7021-8 ####[facility] HOSPITALNCLIA [id number] [place] [address] [place] CNOVSPon 10-11-2024 CNOVSP [facility] CNPNon 10-10-2024 CNPN Normal [facility] CNPTOUTREACHon 10-03-2024 CNPTOUTREACH [facility] CNOVon 09-27-2024 CNOV Office Visit ([facility] ) -- SRINI LUIS ([id number]) 1935 M Date Time Provider Department 09/27/24 11:00 AM [facility] During your visit today, we recorded the following information about you: Pulse Blood pressure Weight Height 62/minute 116/58 78 kg 1.702 m Iram Johnson APRN.TELEPHONE ORDER SUPERVISOR 09/27/2024 11:13 AM Signed [facility] CARDIOLOGY Ronaldo Pleitez MD SUBJECTIVE: Srini [...] disorder 08/25/2022 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 ([facility]) 08/22/2022 Pontine infarction, R>L B12 deficiency 07/11/2020 Benign hypertension 08/14/2021 CAD (coronary artery disease) CHB (complete heart block) ([facility]) 09/17/2022 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 and now Bilateral BBB; Confirmed Blk below His by His Bundle Electrogram Chronic atrial fibrillation ([facility]) Chronic heart failure with preserved ejection fraction ([facility]) 07/29/2024 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 [...] RIGHT OP SURGERY Right 12/18/2020 Dr Arreola [facility] ARTHROPLASTY TOTAL SHOULDER 11/09/2008 right ARTHROSCOPY OF [...] daily. polye (more content not included)... Normal [facility] Office Visit ([facility] ) -- SRINI LUIS ([id number]) 1935 M Date Time Provider Department 09/27/24 10:30 AM [id number] During your visit today, we recorded the following information about you: Israel Minor MD 10/06/2024 5:16 PM Signed Dual Pacer Report In Office Check Date: September 27, 2024 Time: 10:32 AM Devices: Implants Lead Ra Lead BimicironiSLIC games-09/17/2022 - Implanted Heart Model/Cat number: ADAIR S [id number] Serial number: [id number] Child Care: [employer] Lot number: LEFT AXILLARY VEIN Size: Right Atrial Pacing Lead Rv Lead BiotroniSLIC games-09/17/2022 - Implanted Heart Model/Cat number: ADAIR S 60 [id number] Serial number: [id number] Child Care: [employer] Lot number: LEFT CEPHALIC VEIN Size: Right Ventricular Pacing Lead Pacemaker Dual Pacer Biotronik-09/17/2022 - Implanted (Left) Chest Wall Model/Cat number: CHELIORA 8 DR-T [id number] Serial number: [id number] Child Care: [employer] Lot number: INITIAL DUAL PACER IMPLANT. Size: [...] and provider appointment. View External Cardiology - Development Advisor Strips [ID [id number]] Allergies As of Date: 09/27/2024 Noted Allergy [...] by this patient by: DAUGHTER Ten Weber, [facility] Problem List As Of Date 09/27/2024 Noted [...] Insomnia [G47.00] 08/13/2010 (more content not included)... [facility] -- SRINI LUIS ([id number]) 1935 M Date Time Provider Department 09/27/24 IRAM JOHNSON [facility] During your visit today, we recorded the following information about you: Shilpa Abraham MA 09/27/2024 4:03 PM Signed Ref #[id number] Patient needs a Peer to Peer for his Stress Test. The number is [phone]. Iram Johnson, MARTIN.TELEPHONE ORDER SUPERVISOR 09/30/2024 8:24 AM Signed Apparently the patient does not need a peer to peer, the reference number is the approval number for the stress test. It is good from 09-27-2024-12/25/2024. Shilpa Abraham MA 09/30/2024 2:52 PM Addendum Spoke with Zaria at [facility]. Patients Stress Test is scheduled for 6:45 am at [facility] on 10/12/24. Spoke with patients daughter Liza and [facility]. Both parties are aware of the date, time and instructions. Order was faxed ([phone]) to [facility]. 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 Normal [facility] CBC W Auto Differential pane l (Bld)on 09-22-2024 Basophils (Bld) [#/Vol] 0.05 10*3/uL Normal <0.11 [facility] Comment on above: Order Comment: Speci men Type: BLOOD SPECIMENOrdering Facility: [facility] Address: [address] [place] [address] Performed By: #### 5 7021-8 ####[facility] [id number] [place] [address] [place] Basophils/100 WBC (Bld) 0.9 % Normal [facility] Comment on above: Order Comment: Elfego gilbert Type: BLOOD SPECIMENOrdering Facility: [facility] Address: [address] [place] [address] Performed By: #### 5 7021-8 ####[facility] [id number] [place] [address] [place] Differential cell count method Nom (Bld) Auto Normal [facility] Comment on above: Order Comment: Speci men Type: BLOOD SPECIMENOrdering Facility: [facility] Address: [address] [place] [address] Performed By: #### 5 7021-8 ####[facility] [id number] [place] [address] [place] Eosinophils (Bld) [#/Vol] 0.14 10*3/uL Normal <0.46 [facility] Comment on above: Order Comment: Speci men Type: BLOOD SPECIMENOrdering Facility: [facility] Address: [address] [place] [address] Performed By: #### 5 7021-8 ####[facility] [id number] [place] [address] [place] Eosinophils/100 WBC (Bld) 2.6 % Normal [facility] Comment on above: Order Comment: Speci men Type: BLOOD SPECIMENOrdering Facility: [facility] Address: [address] [place] [address] Performed By: #### 5 7021-8 ####[facility] [id number] [place] [address] [place] Erythrocyte distribution width (RBC) [Ratio] 19.1 % High 11.5-15.0 [facility] Comment on above: Order Comment: Speci men Type: BLOOD SPECIMENOrdering Facility: [facility] Address: [address] [place] [address] Performed By: #### 5 7021-8 ####[facility] [id number] [place] [address] [place] Hematocrit (Bld) [Volume fraction] 26.3 % Low 39.0-51.0 [facility] Comment on above: Order Comment: Speci men Type: BLOOD SPECIMENOrdering Facility: [facility] Address: [address] [place] [address] Performed By: #### 5 7021-8 ####[facility] [id number] [place] [address] [place] Hemoglobin (Bld) [Mass/Vol] 8.7 g/dL Low 13.0-17.0 [facility] Comment on above: Order Comment: Speci men Type: BLOOD SPECIMENOrdering Facility: [facility] Address: [address] [place] [address] Performed By: #### 5 7021-8 ####[facility] MILLTOWNCLIA [id number] [place] [address] [place] Immature granulocytes (Bld) [#/Vol] 10*3/uL Normal <0.10 [facility] Comment on above: Order Comment: Speci men Type: BLOOD SPECIMENOrdering Facility: [facility] Address: [address] [place] [address] Performed By: #### 5 7021-8 ####[facility]OSPITALWNCLIA [id number] [place] [address] [place] Immature granulocytes/100 WBC (Bld) 0.4 % Normal [facility] Comment on above: Order Comment: Speci men Type: BLOOD SPECIMENOrdering Facility: [facility] Address: [address] [place] [address] Performed By: #### 5 7021-8 ####[facility]ITALNCLIA [id number] [place] [address] [place] Lymphocytes (Bld) [#/Vol] 1.15 10*3/uL Normal 1.00-4.00 [facility] Comment on above: Order Comment: Speci men Type: BLOOD SPECIMENOrdering Facility: [facility] Address: [address] [place] [address] Performed By: #### 5 7021-8 ####[facility] MILLTOWNCLIA [id number] [place] [address] [place] Lymphocytes/100 WBC (Bld) 21.0 % Normal [facility] Comment on above: Order Comment: Speci men Type: BLOOD SPECIMENOrdering Facility: [facility] Address: [address] [place] [address] Performed By: #### 5 7021-8 ####[facility] [id number] [place] [address] [place] MCH (RBC) [Entitic mass] 37.3 pg High 26.0-34.0 [facility] Comment on above: Order Comment: Speci men Type: BLOOD SPECIMENOrdering Facility: [facility] Address: [address] [place] [address] Performed By: #### 5 7021-8 ####[facility] [id number] [place] [address] [place] MCHC (RBC) [Mass/Vol] 33.1 g/dL Normal 30.5-36.0 [facility] Comment on above: Order Comment: Speci men Type: BLOOD SPECIMENOrdering Facility: [facility] Address: [address] [place] [address] Performed By: #### 5 7021-8 ####[facility] [id number] [place] [address] [place] MCV (RBC) [Entitic vol] 112.9 fL High 80.0-100.0 [facility] Comment on above: Order Comment: Speci men Type: BLOOD SPECIMENOrdering Facility: [facility] Address: [address] [place] [address] Performed By: #### 5 7021-8 ####[facility] [id number] [place] [address] [place] Monocytes (Bld) [#/Vol] 0.70 10*3/uL Normal <0.87 [facility] Comment on above: Order Comment: Speci men Type: BLOOD SPECIMENOrdering Facility: [facility] Address: [address] [place] [address] Performed By: #### 5 7021-8 ####[facility] [id number] [place] [address] [place] Monocytes/100 WBC (Bld) 12.8 % Normal [facility] Comment on above: Order Comment: Speci men Type: BLOOD SPECIMENOrdering Facility: [facility] Address: [address] [place] [address] Performed By: #### 5 7021-8 ####[facility] [id number] [place] [address] [place] Neutrophils (Bld) [#/Vol] 3.42 10*3/uL Normal 1.45-7.50 [facility] Comment on above: Order Comment: Speci men Type: BLOOD SPECIMENOrdering Facility: [facility] Address: [address] [place] [address] Performed By: #### 5 7021-8 ####[facility] [id number] [place] [address] [place] Neutrophils/100 WBC (Bld) 62.3 % Normal [facility] Comment on above: Order Comment: Speci men Type: BLOOD SPECIMENOrdering Facility: [facility] Address: [address] [place] [address] Performed By: #### 5 7021-8 ####[facility] [id number] [place] [address] [place] Nucleated RBC (Bld) [#/Vol] 0.05 10*3/uL High <0.01 [facility] Comment on above: Order Comment: Speci men Type: BLOOD SPECIMENOrdering Facility: [facility] Address: [address] [place] [address] Performed By: #### 5 7021-8 ####[facility] [id number] [place] [address] [place] Nucleated RBC/100 WBC (Bld) [Ratio] 0.9 /100 WBC Normal [facility] Comment on above: Order Comment: Speci men Type: BLOOD SPECIMENOrdering Facility: [facility] Address: [address] [place] [address] Performed By: #### 5 7021-8 ####[facility] H[facility]ILTONJACQUELYN MEMBRENO [id number] [place] [address] [place] Platelet mean volume (Bld) [Entitic vol] 11.9 fL Normal 9.0-12.7 [facility] Comment on above: Order Comment: Speci men Type: BLOOD SPECIMENOrdering Facility: [facility] Address: [address] [place] [address] Performed By: #### 5 7021-8 ####[facility] HOSPITALMALENA [id number] [place] [address] [place] Platelets (Bld) [#/Vol] 235 10*3/uL Normal 150-400 [facility] Comment on above: Order Comment: Speci men Type: BLOOD SPECIMENOrdering Facility: [facility] Address: [address] [place] [address] Performed By: #### 5 7021-8 ####[facility] HOSPITALMALENA [id number] [place] [address] [place] RBC (Bld) [#/Vol] 2.33 10*6/uL Low 4.20-6.00 [facility] Comment on above: Order Comment: Speci men Type: BLOOD SPECIMENOrdering Facility: [facility] Address: [address] [place] [address] Performed By: #### 5 7021-8 ####[facility]ITALL[facility] [id number] [place] [address] [place] WBC (Bld) [#/Vol] 5.48 10*3/uL Normal 3.70-11.00 [facility] Comment on above: Order Comment: Speci men Type: BLOOD SPECIMENOrdering Facility: [facility] Address: [address] [place] [address] Performed By: #### 5 7021-8 ####[facility] JONHWNCLIA [id number] [place] [address] [place] Vit B12 [facility] 11-14-2 024 Cobalamin (Vitamin B12) [Mass/Vol] 754 pg/mL Normal 232-1245 [facility] Comment on above: Order Comment: Speci men Type: BLOOD SPECIMENOrdering Facility: [facility] Address: [address] [place] [address] Performed By: #### 2 132-9 ####[facility] LABCLIA [id number] [place] [address] [place] CBC W Auto Differential pane l (Bld)on 09-15-2024 Basophils (Bld) [#/Vol] 0.05 10*3/uL Normal <0.11 [facility] Comment on above: Order Comment: Speci men Type: BLOOD SPECIMENOrdering Facility: [facility] Address: [address] [place] [address] Performed By: #### 5 7021-8 ####[facility] [id number] [place] [address] [place] Basophils/100 WBC (Bld) 0.9 % Normal [facility] Comment on above: Order Comment: Speci men Type: BLOOD SPECIMENOrdering Facility: [facility] Address: [address] [place] [address] Performed By: #### 5 7021-8 ####[facility] HOSPITALNCLIA [id number] [place] [address] [place] Differential cell count method Nom (Bld) Auto Normal [facility] Comment on above: Order Comment: Speci men Type: BLOOD SPECIMENOrdering Facility: [facility] Address: [address] [place] [address] Performed By: #### 5 7021-8 ####[facility] [id number] [place] [address] [place] Eosinophils (Bld) [#/Vol] 0.09 10*3/uL Normal <0.46 [facility] Comment on above: Order Comment: Speci men Type: BLOOD SPECIMENOrdering Facility: [facility] Address: [address] [place] [address] Performed By: #### 5 7021-8 ####[facility] [id number] [place] [address] [place] Eosinophils/100 WBC (Bld) 1.7 % Normal [facility] Comment on above: Order Comment: Speci men Type: BLOOD SPECIMENOrdering Facility: [facility] Address: [address] [place] [address] Performed By: #### 5 7021-8 ####[facility] HOSPITALROBERTManuel [id number] [place] [address] [place] Erythrocyte distribution width (RBC) [Ratio] 18.6 % High 11.5-15.0 [facility] Comment on above: Order Comment: Speci men Type: BLOOD SPECIMENOrdering Facility: [facility] Address: [address] [place] [address] Performed By: #### 5 7021-8 ####[facility] HOSPITALLIManuel [id number] [place] [address] [place] Hematocrit (Bld) [Volume fraction] 25.6 % Low 39.0-51.0 [facility] Comment on above: Order Comment: Speci men Type: BLOOD SPECIMENOrdering Facility: [facility] Address: [address] [place] [address] Performed By: #### 5 7021-8 ####[facility] HOSPITALNCLI [id number] [place] [address] [place] Hemoglobin (Bld) [Mass/Vol] 8.5 g/dL Low 13.0-17.0 [facility] Comment on above: Order Comment: Speci men Type: BLOOD SPECIMENOrdering Facility: [facility] Address: [address] [place] [address] Performed By: #### 5 7021-8 ####[facility] [id number] [place] [address] [place] Immature granulocytes (Bld) [#/Vol] 0.03 10*3/uL Normal <0.10 [facility] Comment on above: Order Comment: Speci men Type: BLOOD SPECIMENOrdering Facility: [facility] Address: [address] [place] [address] Performed By: #### 5 7021-8 ####[facility] [id number] [place] [address] [place] Immature granulocytes/100 WBC (Bld) 0.6 % Normal [facility] Comment on above: Order Comment: Speci men Type: BLOOD SPECIMENOrdering Facility: [facility] Address: [address] [place] [address] Performed By: #### 5 7021-8 ####[facility] [id number] [place] [address] [place] Lymphocytes (Bld) [#/Vol] 1.11 10*3/uL Normal 1.00-4.00 [facility] Comment on above: Order Comment: Speci men Type: BLOOD SPECIMENOrdering Facility: [facility] Address: [address] [place] [address] Performed By: #### 5 7021-8 ####[facility] [id number] [place] [address] [place] Lymphocytes/100 WBC (Bld) 20.9 % Normal [facility] Comment on above: Order Comment: Speci men Type: BLOOD SPECIMENOrdering Facility: [facility] Address: [address] [place] [address] Performed By: #### 5 7021-8 ####[facility] MILLIVANAWNCLIA [id number] [place] [address] [place] MCH (RBC) [Entitic mass] 37.1 pg High 26.0-34.0 [facility] Comment on above: Order Comment: Speci men Type: BLOOD SPECIMENOrdering Facility: [facility] Address: [address] [place] [address] Performed By: #### 5 7021-8 ####[facility] HOSPITALNCLIA [id number] [place] [address] [place] MCHC (RBC) [Mass/Vol] 33.2 g/dL Normal 30.5-36.0 [facility] Comment on above: Order Comment: Speci men Type: BLOOD SPECIMENOrdering Facility: [facility] Address: [address] [place] [address] Performed By: #### 5 7021-8 ####[facility] HOSPITALNCLIA [id number] [place] [address] [place] MCV (RBC) [Entitic vol] 111.8 fL High 80.0-100.0 [facility] Comment on above: Order Comment: Speci men Type: BLOOD SPECIMENOrdering Facility: [facility] Address: [address] [place] [address] Performed By: #### 5 7021-8 ####[facility] HOSPITALNCLIA [id number] [place] [address] [place] Monocytes (Bld) [#/Vol] 0.68 10*3/uL Normal <0.87 [facility] Comment on above: Order Comment: Speci men Type: BLOOD SPECIMENOrdering Facility: [facility] Address: [address] [place] [address] Performed By: #### 5 7021-8 ####[facility] [id number] [place] [address] [place] Monocytes/100 WBC (Bld) 12.8 % Normal [facility] Comment on above: Order Comment: Speci men Type: BLOOD SPECIMENOrdering Facility: [facility] Address: [address] [place] [address] Performed By: #### 5 7021-8 ####[facility] [id number] [place] [address] [place] Neutrophils (Bld) [#/Vol] 3.36 10*3/uL Normal 1.45-7.50 [facility] Comment on above: Order Comment: Speci men Type: BLOOD SPECIMENOrdering Facility: [facility] Address: [address] [place] [address] Performed By: #### 5 7021-8 ####[facility] [id number] [place] [address] [place] Neutrophils/100 WBC (Bld) 63.1 % Normal [facility] Comment on above: Order Comment: Speci men Type: BLOOD SPECIMENOrdering Facility: [facility] Address: [address] [place] [address] Performed By: #### 5 7021-8 ####[facility] [id number] [place] [address] [place] Nucleated RBC (Bld) [#/Vol] 0.05 10*3/uL High <0.01 [facility] Comment on above: Order Comment: Speci men Type: BLOOD SPECIMENOrdering Facility: [facility] Address: [address] [place] [address] Performed By: #### 5 7021-8 ####[facility] [id number] [place] [address] [place] Nucleated RBC/100 WBC (Bld) [Ratio] 0.9 /100 WBC Normal [facility] Comment on above: Order Comment: Speci men Type: BLOOD SPECIMENOrdering Facility: [facility] Address: [address] [place] [address] Performed By: #### 5 7021-8 ####[facility] JONHWilliamsNCRADHA [id number] [place] [address] [place] Platelet mean volume (Bld) [Entitic vol] 10.9 fL Normal 9.0-12.7 [facility] Comment on above: Order Comment: Speci men Type: BLOOD SPECIMENOrdering Facility: [facility] Address: [address] [place] [address] Performed By: #### 5 7021-8 ####[facility]ITALNCV[facility] [id number] [place] [address] [place] Platelets (Bld) [#/Vol] 261 10*3/uL Normal 150-400 [facility] Comment on above: Order Comment: Speci men Type: BLOOD SPECIMENOrdering Facility: [facility] Address: [address] [place] [address] Performed By: #### 5 7021-8 ####[facility] HOSPITALNCLIA [id number] [place] [address] [place] RBC (Bld) [#/Vol] 2.29 10*6/uL Low 4.20-6.00 [facility] Comment on above: Order Comment: Speci men Type: BLOOD SPECIMENOrdering Facility: [facility] Address: [address] [place] [address] Performed By: #### 5 7021-8 ####[facility] HOSPITALNCLI [id number] [place] [address] [place] WBC (Bld) [#/Vol] 5.32 10*3/uL Normal 3.70-11.00 [facility] Comment on above: Order Comment: Speci men Type: BLOOD SPECIMENOrdering Facility: [facility] Address: [address] [place], [place] [address] Performed By: #### 5 7021-8 ####[facility] HOSPITALNCA [id number] [place] [address] [place] CNOVSPon 09-15-2024 CNOVSP Normal [facility] CNPNon 09-15-2024 CNPN Normal [facility] Comprehensive metabolic 2000 panelon 09-15-2024 Albumin [Mass/Vol] 4.1 g/dL Normal 3.9-4.9 [facility] Comment on above: Order Comment: Speci men Type: BLOOD SPECIMENOrdering Facility: [facility] Address: [address] [place] [address] Performed By: #### 2 4323-8 ####[facility]ITALNCVA [facility]OSP[facility] [id number] [place] [address] [place] ALP [Catalytic activity/Vol] 81 U/L Normal 38-113 [facility] Comment on above: Order Comment: Speci men Type: BLOOD SPECIMENOrdering Facility: [facility] Address: [address] [place] [address] Performed By: #### 2 4323-8 ####[facility] HOSPITALNCA [id number] [place] [address] [place] ALT [Catalytic activity/Vol] 14 U/L Normal 10-54 [facility] Comment on above: Order Comment: Speci men Type: BLOOD SPECIMENOrdering Facility: [facility] Address: [address] [place] [address] Performed By: #### 2 4323-8 ####[facility] HOSPITALNCA [id number] [place] [address] [place] Anion gap [Moles/Vol] 9 mmol/L Normal 8-15 [facility] Comment on above: Order Comment: Speci men Type: BLOOD SPECIMENOrdering Facility: [facility] Address: [address] [place], [place] [id number] Performed By: #### 2 4323-8 ####[facility] MILLTOWNCLIA [id number] [place] [address] [place] AST [Catalytic activity/Vol] 23 U/L Normal 14-40 [place] [facility] Comment on above: Order Comment: Speci men Type: BLOOD SPECIMENOrdering Facility: [facility] Address: [address] [place] [address] Performed By: #### 2 4323-8 ####[facility] MILLTOWNCLIA [id number] [place] [address] [place] Bilirubin [Mass/Vol] 1.5 mg/dL High 0.2-1.3 [facility] Comment on above: Order Comment: Speci men Type: BLOOD SPECIMENOrdering Facility: [facility] Address: [address] [place] [address] Performed By: #### 2 4323-8 ####[facility] HOSPITALWNCLIA [id number] [place] [address] [place] Calcium [Mass/Vol] 9.1 mg/dL Normal 8.5-10.2 [facility] Comment on above: Order Comment: Speci men Type: BLOOD SPECIMENOrdering Facility: [facility] Address: [address] [place] [address] Performed By: #### 2 4323-8 ####[facility] MILLTOWNCLIA [id number] [place] [address] [place] Chloride [Moles/Vol] 100 mmol/L Normal 98-107 [facility] Comment on above: Order Comment: Speci men Type: BLOOD SPECIMENOrdering Facility: [facility] Address: [address] [place] [address] Performed By: #### 2 4323-8 ####[facility] MILLTOWNCLIA [id number] [place] [address] [place] CO2 [Moles/Vol] 27 mmol/L Normal 22-30 [facility] Comment on above: Order Comment: Speci men Type: BLOOD SPECIMENOrdering Facility: [facility] Address: [address] [place] [address] Performed By: #### 2 4323-8 ####[facility] HOSPITALNCRADHA [id number] [place] [address] [place] Creatinine [Mass/Vol] 1.02 mg/dL Normal 0.73-1.22 [facility] Comment on above: Order Comment: Speci men Type: BLOOD SPECIMENOrdering Facility: [facility] Address: [address] [place] [address] Performed By: #### 2 4323-8 ####[facility] HOSPITALNCLIA [id number] [place] [address] [place] Creatinine and Glomerular filtration rate.predicted panel (S/P/Bld) 71 mL/min/1.73m??? Normal >=60 [facility] Comment on above: Order Comment: Speci men Type: BLOOD SPECIMENOrdering Facility: [facility] Address: [address] [place] [address] Result Comment: Concepción mated Glomerular Filtration Rate [...] Performed By: #### 2 4323-8 ####[facility] HOSPITALWNCLIA [id number] [place] [address] [place] Glucose [Mass/Vol] 94 mg/dL Normal 74-99 [facility] Comment on above: Order Comment: Speci men Type: BLOOD SPECIMENOrdering Facility: [facility] Address: [address] [place] [address] Result Comment: The Citizen Of The [place] Diabetes Association (ADA) provides guidance for cutoff [...] Standards of Medical Care in Diabetes 2016, Citizen Of The [place] Diabetes Association. Diabetes Care. 2016.39(Suppl 1). Performed By: #### 2 4323-8 ####[facility] [id number] [place] [address] [place] Potassium [Moles/Vol] 4.4 mmol/L Normal 3.7-5.1 [facility] Comment on above: Order Comment: Speci men Type: BLOOD SPECIMENOrdering Facility: [facility] Address: [address] [place] [address] Performed By: #### 2 4323-8 ####[facility] [id number] [place] [address] [place] Protein [Mass/Vol] 6.4 g/dL Normal 6.3-8.0 [facility] Comment on above: Order Comment: Speci men Type: BLOOD SPECIMENOrdering Facility: [facility] Address: [address] [id number] Performed By: #### 2 4323-8 ####[facility] [id number] [place] [address] [place] Sodium [Moles/Vol] 136 mmol/L Normal 136-144 [facility] Comment on above: Order Comment: Speci men Type: BLOOD SPECIMENOrdering Facility: [facility] Address: [address] [place] [address] Performed By: #### 2 4323-8 ####[facility] [id number] [address] STATES [facility] Urea nitrogen [Mass/Vol] 24 mg/dL Normal 9-24 [facility] Comment on above: Order Comment: Speci men Type: BLOOD SPECIMENOrdering Facility: [facility] Address: [address] [place] [address] Performed By: #### 2 4323-8 ####[facility] [id number] [place] [address] [place] Ferritin SerPl-ncon 2023 Ferritin [Mass/Vol] 453.0 ng/mL Normal 30.3-565.7 [facility] Comment on above: Order Comment: Speci men Type: BLOOD SPECIMENOrdering Facility: [facility] Address: [address] [place] [address] Performed By: #### 5 0190-8, 2275-4 ####[facility] LABCLIA [id number] [place] [address] [place]#### 80810-0 ####[facility] LABCLIA [id number] [place] [address] [place] [facility] [id number] [place] [address] [place] Iron and Iron binding capaci ty panelon 09-15-2024 Iron [Mass/Vol] 134 ug/dL Normal 41-186 [facility] Comment on above: Order Comment: Speci men Type: BLOOD SPECIMENOrdering Facility: [facility] Address: [address] [place] [address] Performed By: #### 5 0190-8, 6-4 ####[facility] LABCLIA [id number] [place] [address] [place]#### 75294-7 ####[facility] LABCLIA [id number] [address] [id number] [place] [address] [place] Iron binding capacity [Mass/Vol] 166 ug/dL Low 232-386 [facility] Comment on above: Order Comment: Speci men Type: BLOOD SPECIMENOrdering Facility: [facility] Address: [address] [place] [address] Performed By: #### 5 0190-8, 2275-4 ####[facility] LABCLIA [id number] [place] [address] [place]#### 14833-3 ####[facility] LABCLIA [id number] [address] [id number] [place] [address] [place] Iron/TIBC [Molar ratio] 80.7 % High 15.0-57.0 [facility] Comment on above: Order Comment: Speci men Type: BLOOD SPECIMENOrdering Facility: [facility] Address: [address] [place] [address] Performed By: #### 5 0190-8, 2275- ####[facility] LABCLIA [id number] [place] [address] [place]#### 43361-4 ####[facility] LABCLIA [id number] [address] [id number] [place] [address] [place] Lipid 1996 panelon 4 Cholesterol [Mass/Vol] 86 mg/dL Normal <200 [facility] Comment on above: Order Comment: Speci men Type: BLOOD SPECIMENOrdering Facility: [facility] Address: [address] [place] [address] Result Comment: <200 mg/dL, Desirable 200-239 mg/dL, Borderline high>239 mg/dL, High Performed By: #### 5 0190-8, 2275- ####[facility] LABCLIA [id number] [place] [address] [place]#### 94109-3 ####[facility] LABCLIA [id number] [address] STATES OF [facility] [id number] [place] [address] [place] Cholesterol in HDL [Mass/Vol] 53 mg/dL Normal >39 [facility] Comment on above: Order Comment: Speci men Type: BLOOD SPECIMENOrdering Facility: [facility] Address: [address] [place] [address] Result Comment: 40-5 9 mg/dL, Acceptable>59 mg/dL, High: Negative risk factor for coronary heart disease<40 mg/dL, Low: Positive risk factor for coronary heart disease Performed By: #### 5 0190-8, 2275- ####[facility] LABCLIA [id number] [place] [address] [place]#### 57386-1 ####[facility] LABCLIA [id number] [address] [id number] [place] [address] [place] Cholesterol in LDL [Mass/Vol] 26 mg/dL Normal <100 [facility] Comment on above: Order Comment: Speci men Type: BLOOD SPECIMENOrdering Facility: [facility] Address: [address] [place], [place] [address] [address] Result Comment: <100 mg/dL, Optimal 100-129 mg/dL, Near optimal/above optimal 130-159 mg/dL, Borderline high 160-189 mg/dL, High>189 mg/dL, Very highSecondary prevention optimal LDL Cholesterol levels are recommended to be < 70 mg/dL Performed By: #### 5 0190-8, 2276-02 ####[facility] LABCLIA [id number] [place] [address] [place]#### 81765-2 ####[facility] LABCLIA [id number] [address] [id number] [place] [address] [place] Cholesterol in LDL/Cholesterol in HDL [Mass ratio] 0.49 {ratio} Normal <2.54 [facility] Comment on above: Order Comment: Speci men Type: BLOOD SPECIMENOrdering Facility: [facility] Address: [address] [place] [address] Result Comment: Katie barrientos:1. National Cholesterol Education Program ATP III Guideline At-A-Glance Quick Desk Reference: National Heart, Lung, and Blood [place]. National Institutes of Health. 2001: NIH Publication No. 01-3305.2. An International Atherosclerosis Society position paper: global recommendations for the management of dyslipidemia: executive summary, Atherosclerosis. 2014: 232(2):410-413. Performed By: #### 5 0190-8, 2276-02 ####[facility] LABCLIA [id number] [place] [address] [place]#### 87609-7 ####[facility] LABCLIA [id number] [address] [id number] [place] [address] [place] Cholesterol in VLDL [Mass/Vol] 7 mg/dL Normal <30 [facility] Comment on above: Order Comment: Speci men Type: BLOOD SPECIMENOrdering Facility: [facility] Address: [address] [place] [address] Performed By: #### 5 0190-8, 2275-4 ####[facility] LABCLIA [id number] [place] [address] [place]#### 16226-2 ####[facility] LABCLIA [id number] [address] STATES OF [facility] [id number] [address] [place] Cholesterol non HDL [Mass/Vol] 33 mg/dL Normal <130 [facility] Comment on above: Order Comment: Speci men Type: BLOOD SPECIMENOrdering Facility: [facility] Address: [address] [place] [address] Result Comment: <130 mg/dL, Optimal 130-159 mg/dL, Near optimal/above optimal 160-189 mg/dL, Borderline high 190-219 mg/dL, High>219 mg/dL, Very highSecondary prevention optimal non HDL Cholesterol levels are recommended to be <100 mg/dL Performed By: #### 5 0190-8, 2275- ####[facility] LABCLIA [id number] [address] [place]#### 92973-7 ####[facility] LABCLIA [id number] [address] STATES OF [facility] [id number] [address] [place] Cholesterol.total/Chol esterol in HDL [Mass ratio] 1.62 {ratio} Normal <5.10 [facility] Comment on above: Order Comment: Speci men Type: BLOOD SPECIMENOrdering Facility: [facility] Address: [address] [id number] Performed By: #### 5 0190-8, 2276-02 ####[facility] LABCLIA [id number] [place] [address] [place]#### 80535-6 ####[facility] LABCLIA [id number] [place] [address] [place] [facility]ICAC[facility] [id number] [place] [address] [place] FASTING TIME 12 hrs Normal [facility] Comment on above: Order Comment: Speci men Type: BLOOD SPECIMENOrdering Facility: [facility] Address: [address] [place], [place] [address] Performed By: #### 5 0190-8, 2276-02 ####[facility] LABCLIA [id number] [place] [address] [place]#### 53729-4 ####[facility] LABCLIA [id number] [place] [address] [place] [facility] [id number] [place] [address] [place] Triglyceride [Mass/Vol] 33 mg/dL Normal <150 [facility] Comment on above: Order Comment: Speci men Type: BLOOD SPECIMENOrdering Facility: [facility] Address: [facility] [id number] Result Comment: <150 mg/dL, Normal 150-199 mg/dL, Borderline high 200-499 mg/dL, High>499 mg/dL, Very high Performed By: #### 5 0190-8, 2276-02 ####[facility] LABCLIA [id number] [place] [address] [place]#### 64165-0 ####[facility] LABCLIA [id number] [facility] [id number] [place], [place] [address] [place] [facility]ICAC[facility] [id number] [place] [address] [place] CNPTOUTREACHon 08-30-2024 CNPTOUTREACH Normal [facility] CNPNon 08-24-2024 CNPN Normal [facility] CBC W Auto Differential pane l (Bld)on 08-22-2024 Basophils (Bld) [#/Vol] 0.05 10*3/uL Normal <0.11 [facility] Comment on above: Order Comment: Speci men Type: BLOOD SPECIMENOrdering Facility: [facility] Address: [address] [place] [address] Performed By: #### 5 7021-8 ####[facility] [id number] [place] [address] [place] Basophils/100 WBC (Bld) 0.9 % Normal [facility] Comment on above: Order Comment: Speci men Type: BLOOD SPECIMENOrdering Facility: [facility] Address: [address] [place] [address] Performed By: #### 5 7021-8 ####[facility] [id number] [place] [address] [place] Differential cell count method Nom (Bld) Auto Normal [facility] Comment on above: Order Comment: Speci men Type: BLOOD SPECIMENOrdering Facility: [facility] Address: [address] [place] [address] Performed By: #### 5 7021-8 ####[facility] [id number] [place] [address] [place] Eosinophils (Bld) [#/Vol] 0.19 10*3/uL Normal <0.46 [facility] Comment on above: Order Comment: Speci men Type: BLOOD SPECIMENOrdering Facility: [facility] Address: [address] [place] [address] Performed By: #### 5 7021-8 ####[facility] MILLIVANAWNCLIA [id number] [place] [address] [place] Eosinophils/100 WBC (Bld) 3.3 % Normal [facility] Comment on above: Order Comment: Speci men Type: BLOOD SPECIMENOrdering Facility: [facility] Address: [address] [place] [address] Performed By: #### 5 7021-8 ####[facility] MILLWROBERTLIA [id number] [place] [address] [place] Erythrocyte distribution width (RBC) [Ratio] 17.2 % High 11.5-15.0 [facility] Comment on above: Order Comment: Speci men Type: BLOOD SPECIMENOrdering Facility: [facility] Address: [address] [place] [address] Performed By: #### 5 7021-8 ####[facility]ITALNCLIA [id number] [place] [address] [place] Hematocrit (Bld) [Volume fraction] 26.6 % Low 39.0-51.0 [facility] Comment on above: Order Comment: Speci men Type: BLOOD SPECIMENOrdering Facility: [facility] Address: [address] [place] [address] Performed By: #### 5 7021-8 ####[facility] JONHWNCLIA [id number] [place] [address] [place] Hemoglobin (Bld) [Mass/Vol] 9.0 g/dL Low 13.0-17.0 [facility] Comment on above: Order Comment: Speci men Type: BLOOD SPECIMENOrdering Facility: [facility] Address: [address] [place] [address] Performed By: #### 5 7021-8 ####[facility] HOSPITALROBERTLIA [id number] [place] [address] [place] Immature granulocytes (Bld) [#/Vol] 10*3/uL Normal <0.10 [facility] Comment on above: Order Comment: Speci men Type: BLOOD SPECIMENOrdering Facility: [facility] Address: [address] [place] [address] Performed By: #### 5 7021-8 ####[facility] [id number] [place] [address] [place] Immature granulocytes/100 WBC (Bld) 0.2 % Normal [facility] Comment on above: Order Comment: Speci men Type: BLOOD SPECIMENOrdering Facility: [facility] Address: [address] [place] [address] Performed By: #### 5 7021-8 ####[facility] [id number] [place] [address] [place] Lymphocytes (Bld) [#/Vol] 1.24 10*3/uL Normal 1.00-4.00 [facility] Comment on above: Order Comment: Speci men Type: BLOOD SPECIMENOrdering Facility: [facility] Address: [address] [place] [address] Performed By: #### 5 7021-8 ####[facility]ITALL[facility] [id number] [place] [address] [place] Lymphocytes/100 WBC (Bld) 21.8 % Normal [facility] Comment on above: Order Comment: Speci men Type: BLOOD SPECIMENOrdering Facility: [facility] Address: [address] [place] [address] Performed By: #### 5 7021-8 ####[facility]OSPITALLIA [id number] [place] [address] [place] MCH (RBC) [Entitic mass] 37.5 pg High 26.0-34.0 [facility] Comment on above: Order Comment: Speci men Type: BLOOD SPECIMENOrdering Facility: [facility] Address: [address] [place] [address] Performed By: #### 5 7021-8 ####[facility] [id number] [place] [address] [place] MCHC (RBC) [Mass/Vol] 33.8 g/dL Normal 30.5-36.0 [facility] Comment on above: Order Comment: Speci men Type: BLOOD SPECIMENOrdering Facility: [facility] Address: [address] [place] [address] Performed By: #### 5 7021-8 ####[facility] [id number] [place] [address] [place] MCV (RBC) [Entitic vol] 110.8 fL High 80.0-100.0 [facility] Comment on above: Order Comment: Speci men Type: BLOOD SPECIMENOrdering Facility: [facility] Address: [address] [place] [address] Performed By: #### 5 7021-8 ####[facility] HOSPITALNCA [id number] [place] [address] [place] Monocytes (Bld) [#/Vol] 0.79 10*3/uL Normal <0.87 [facility] Comment on above: Order Comment: Speci men Type: BLOOD SPECIMENOrdering Facility: [facility] Address: [address] [place] [address] Performed By: #### 5 7021-8 ####[facility] [id number] [place] [address] [place] Monocytes/100 WBC (Bld) 13.9 % Normal [facility] Comment on above: Order Comment: Speci men Type: BLOOD SPECIMENOrdering Facility: [facility] Address: [address] [place] [address] Performed By: #### 5 7021-8 ####[facility] MILLWNCLIA [id number] [place] [address] [place] Neutrophils (Bld) [#/Vol] 3.40 10*3/uL Normal 1.45-7.50 [facility] Comment on above: Order Comment: Speci men Type: BLOOD SPECIMENOrdering Facility: [facility] Address: [address] [place] [address] Performed By: #### 5 7021-8 ####[facility]ITALWNCLIA [id number] [place] [address] [place] Neutrophils/100 WBC (Bld) 59.9 % Normal [facility] Comment on above: Order Comment: Speci men Type: BLOOD SPECIMENOrdering Facility: [facility] Address: [address] [place] [address] Performed By: #### 5 7021-8 ####[facility]ITALL[facility] [id number] [place] [address] [place] Nucleated RBC (Bld) [#/Vol] 0.03 10*3/uL High <0.01 [facility] Comment on above: Order Comment: Speci men Type: BLOOD SPECIMENOrdering Facility: [facility] Address: [address] [place] [address] Performed By: #### 5 7021-8 ####[facility] MILLWNCLIA [id number] [place] [address] [place] Nucleated RBC/100 WBC (Bld) [Ratio] 0.5 /100 WBC Normal [facility] Comment on above: Order Comment: Speci men Type: BLOOD SPECIMENOrdering Facility: [facility] Address: [address] [place] [address] Performed By: #### 5 7021-8 ####[facility]PITALL[facility] [id number] [place] [address] [place] Platelet mean volume (Bld) [Entitic vol] 10.8 fL Normal 9.0-12.7 [facility] Comment on above: Order Comment: Speci men Type: BLOOD SPECIMENOrdering Facility: [facility] Address: [address] [place] [address] Performed By: #### 5 7021-8 ####[facility] H[facility]PITALROBERTLIA [id number] [place] [address] [place] Platelets (Bld) [#/Vol] 255 10*3/uL Normal 150-400 [facility] Comment on above: Order Comment: Speci men Type: BLOOD SPECIMENOrdering Facility: [facility] Address: [address] [place] [address] Performed By: #### 5 7021-8 ####[facility] H[facility]ITALNCLIA [id number] [place] [address] [place] RBC (Bld) [#/Vol] 2.40 10*6/uL Low 4.20-6.00 [facility] Comment on above: Order Comment: Speci men Type: BLOOD SPECIMENOrdering Facility: [facility] Address: [address] [place] [address] Performed By: #### 5 7021-8 ####[facility]ITALNCLIA [id number] [place] [address] [place] WBC (Bld) [#/Vol] 5.68 10*3/uL Normal 3.70-11.00 [facility] Comment on above: Order Comment: Speci men Type: BLOOD SPECIMENOrdering Facility: [facility] Address: [address] [place] [address] Performed By: #### 5 7021-8 ####[facility] H[facility]ITALNCLIA [id number] [place] [address] [place] CNPTOUTREACHon 08-02-2024 CNPTOUTREACH Normal [facility] CNOVon 07-29-2024 CNOV Normal [facility] CNPNon 07-22-2024 CNPN Normal [facility] CBC W Auto Differential pane l (Bld)on 07-21-2024 Basophils (Bld) [#/Vol] 0.05 10*3/uL Normal <0.11 [facility] Comment on above: Order Comment: Speci men Type: BLOOD SPECIMENOrdering Facility: [facility] Address: [address] [place] [address] Performed By: #### 5 7021-8 ####[facility] MILLWNCLIA [id number] [place] [address] [place] Basophils/100 WBC (Bld) 1.0 % Normal [facility] Comment on above: Order Comment: Speci men Type: BLOOD SPECIMENOrdering Facility: [facility] Address: [address] [place] [address] Performed By: #### 5 7021-8 ####[facility]OSPITALWNCLIA [id number] [place] [address] [place] Differential cell count method Nom (Bld) Auto Normal [facility] Comment on above: Order Comment: Speci men Type: BLOOD SPECIMENOrdering Facility: [facility] Address: [address] [place] [address] Performed By: #### 5 7021-8 ####[facility] MILLTOWNCLIA [id number] [place] [address] [place] Eosinophils (Bld) [#/Vol] 0.13 10*3/uL Normal <0.46 [facility] Comment on above: Order Comment: Speci men Type: BLOOD SPECIMENOrdering Facility: [facility] Address: [address] [place] [address] Performed By: #### 5 7021-8 ####[facility] MILLTOWNCLIA [id number] [place] [address] [place] Eosinophils/100 WBC (Bld) 2.6 % Normal [facility] Comment on above: Order Comment: Speci men Type: BLOOD SPECIMENOrdering Facility: [facility] Address: [address] [place] [address] Performed By: #### 5 7021-8 ####[facility]ITAL[facility]OBERTVA [facility] [id number] [place] [address] [place] Erythrocyte distribution width (RBC) [Ratio] 16.0 % High 11.5-15.0 [facility] Comment on above: Order Comment: Speci men Type: BLOOD SPECIMENOrdering Facility: [facility] Address: [address] [place] [address] Performed By: #### 5 7021-8 ####[facility]PITALROBERTManuel [id number] [place] [address] [place] Hematocrit (Bld) [Volume fraction] 26.2 % Low 39.0-51.0 [facility] Comment on above: Order Comment: Speci men Type: BLOOD SPECIMENOrdering Facility: [facility] Address: [address] [place] [address] Performed By: #### 5 7021-8 ####[facility] HOSPITALMALENA [id number] [place] [address] [place] Hemoglobin (Bld) [Mass/Vol] 9.0 g/dL Low 13.0-17.0 [facility] Comment on above: Order Comment: Speci men Type: BLOOD SPECIMENOrdering Facility: [facility] Address: [address] [place] [address] Performed By: #### 5 7021-8 ####[facility] HOSPITALNCLI [id number] [place] [address] [place] Immature granulocytes (Bld) [#/Vol] 10*3/uL Normal <0.10 [facility] Comment on above: Order Comment: Speci men Type: BLOOD SPECIMENOrdering Facility: [facility] Address: [address] [place] [address] Performed By: #### 5 7021-8 ####[facility] [id number] [place] [address] [place] Immature granulocytes/100 WBC (Bld) 0.2 % Normal [facility] Comment on above: Order Comment: Speci men Type: BLOOD SPECIMENOrdering Facility: [facility] Address: [address] [place] [address] Performed By: #### 5 7021-8 ####[facility] [id number] [place] [address] [place] Lymphocytes (Bld) [#/Vol] 1.14 10*3/uL Normal 1.00-4.00 [facility] Comment on above: Order Comment: Speci men Type: BLOOD SPECIMENOrdering Facility: [facility] Address: [address] [place] [address] Performed By: #### 5 7021-8 ####[facility] [id number] [place] [address] [place] Lymphocytes/100 WBC (Bld) 22.6 % Normal [facility] Comment on above: Order Comment: Speci men Type: BLOOD SPECIMENOrdering Facility: [facility] Address: [address] [place] [address] Performed By: #### 5 7021-8 ####[facility] [id number] [place] [address] [place] MCH (RBC) [Entitic mass] 38.6 pg High 26.0-34.0 [facility] Comment on above: Order Comment: Speci men Type: BLOOD SPECIMENOrdering Facility: [facility] Address: [address] [place] [address] Performed By: #### 5 7021-8 ####[facility] JONHWilliamsNCLIA [id number] [place] [address] [place] MCHC (RBC) [Mass/Vol] 34.4 g/dL Normal 30.5-36.0 [facility] Comment on above: Order Comment: Speci men Type: BLOOD SPECIMENOrdering Facility: [facility] Address: [address] [place] [address] Performed By: #### 5 7021-8 ####[facility] HOSPITALNCA [id number] [place] [address] [place] MCV (RBC) [Entitic vol] 112.4 fL High 80.0-100.0 [facility] Comment on above: Order Comment: Speci men Type: BLOOD SPECIMENOrdering Facility: [facility] Address: [address] [place] [address] Performed By: #### 5 7021-8 ####[facility] [id number] [place] [address] [place] Monocytes (Bld) [#/Vol] 0.72 10*3/uL Normal <0.87 [facility] Comment on above: Order Comment: Speci men Type: BLOOD SPECIMENOrdering Facility: [facility] Address: [address] [place] [address] Performed By: #### 5 7021-8 ####[facility]ITALL[facility] [id number] [place] [address] [place] Monocytes/100 WBC (Bld) 14.3 % Normal [facility] Comment on above: Order Comment: Speci men Type: BLOOD SPECIMENOrdering Facility: [facility] Address: [address] [place] [address] Performed By: #### 5 7021-8 ####[facility] [id number] [place] [address] [place] Neutrophils (Bld) [#/Vol] 2.99 10*3/uL Normal 1.45-7.50 [facility] Comment on above: Order Comment: Speci men Type: BLOOD SPECIMENOrdering Facility: [facility] Address: [address] [place] [address] Performed By: #### 5 7021-8 ####[facility]OSPITALLIA [id number] [place] [address] [place] Neutrophils/100 WBC (Bld) 59.3 % Normal [facility] Comment on above: Order Comment: Speci men Type: BLOOD SPECIMENOrdering Facility: [facility] Address: [address] [place] [address] Performed By: #### 5 7021-8 ####[facility] [id number] [place] [address] [place] Nucleated RBC (Bld) [#/Vol] 0.03 10*3/uL High <0.01 [facility] Comment on above: Order Comment: Speci men Type: BLOOD SPECIMENOrdering Facility: [facility] Address: [address] [place] [address] Performed By: #### 5 7021-8 ####[facility] [id number] [place] [address] [place] Nucleated RBC/100 WBC (Bld) [Ratio] 0.6 /100 WBC Normal [facility] Comment on above: Order Comment: Speci men Type: BLOOD SPECIMENOrdering Facility: [facility] Address: [address] [place] [address] Performed By: #### 5 7021-8 ####[facility]ITALNCVA [facility] [id number] [place] [address] [place] Platelet mean volume (Bld) [Entitic vol] 10.5 fL Normal 9.0-12.7 [facility] Comment on above: Order Comment: Speci men Type: BLOOD SPECIMENOrdering Facility: [facility] Address: [address] [place] [address] Performed By: #### 5 7021-8 ####[facility] JONHWNCLIA [id number] [place] [address] [place] Platelets (Bld) [#/Vol] 245 10*3/uL Normal 150-400 [facility] Comment on above: Order Comment: Speci men Type: BLOOD SPECIMENOrdering Facility: [facility] Address: [address] [place] [address] Performed By: #### 5 7021-8 ####[facility] H[facility]ITALNCLIA [id number] [place] [address] [place] RBC (Bld) [#/Vol] 2.33 10*6/uL Low 4.20-6.00 [facility] Comment on above: Order Comment: Speci men Type: BLOOD SPECIMENOrdering Facility: [facility] Address: [address] [place] [address] Performed By: #### 5 7021-8 ####[facility]ITALNCLIA [id number] [place] [address] [place] WBC (Bld) [#/Vol] 5.04 10*3/uL Normal 3.70-11.00 [facility] Comment on above: Order Comment: Speci men Type: BLOOD SPECIMENOrdering Facility: [facility] Address: [address] [place] [address] Performed By: #### 5 7021-8 ####[facility]ITALNCLIA [id number] [place] [address] [place] XR Chest PA and Lateralon IMPRESSION: No acute radiographic abnormality. [employer] Director: BERNARDA Transcribe Date/Time: Jan 25 2024 4:34A Dictated by : SKY SORIA MD This examination was interpreted and the report reviewed and electronically signed by: SKY SORIA MD on Jan 25 2024 4:35AM [facility] DIVISION OF RADIOLOGY * * [...] humeral arthroplasty hardware. DIVISION OF RADIOLOGY Provider, [facility] - 01/25/2024 * * *Final Report* * [...] hardware. IMPRESSION IMPRESSION: No acute radiographic abnormality. [employer] Director: PSCB Transcribe Date/Time: Jan 25 2024 4:34A Dictated by : SKY SORIA MD This examination was interpreted and the report reviewed and electronically signed by: SKY SORIA MD on Jan 25 2024 4:35AM EST [facility] XR Chest PA and LateralOrder ed By: Ccf Provider on 01-25-2024 [facility] XR Chest PA and Lateralon Radiology Study observation (narrative) [facility] XR Elbow - right AP and Late ral and obliqueon 12-24-2023 IMPRESSION: No acute osseous abnormality [employer] Director: [facility] Transcribe Date/Time: Dec 24 2023 [...] the olecranon process. DIVISION OF RADIOLOGY Provider, [facility] * * *Final Report* * [...] process. IMPRESSION IMPRESSION: No acute osseous abnormality [employer] Director: PSCRobert Transcribe Date/Time: Dec 24 2023 8:16A Dictated by : JOSE ROBERTS MD This examination was interpreted and the report reviewed and electronically signed by: JOSE ROBERTS MD on Dec 24 2023 8:20AM EST [facility] XR Elbow - right AP and Late ral and obliqueOrdered By: Ccf Provider on 12-24-2023 [facility] XR Elbow - right AP and Late ral and obliqueon 12-23-2023 Radiology Study observation (narrative) [facility] Laboratory - Chemistry and C hemistry - challengeOrdered By: Ronaldo Pleitez on 06-22-2023 Cobalamin (Vitamin B12) [Mass/Vol] 567 pg/mL 211-911 [facility] No Panel InformationOrdered By: Ronaldo Pleitez on 06-22-2023 Vitamin D 25-Hydroxy 64.7 ng/mL [facility] Comment on above: Vitamin D 25(OH) Sta tus Range Deficiency <20 ng/mL (50nmol/L) Insufficiency 20 - 30 ng/mL (50 - 75 nmol/L) Sufficiency 30 - 100 ng/mL (75 - 250 nmol/L) Toxicity >100 ng/mL (>250 nmol/L) XR CHEST 2V FRONTAL/LATon [facility] Absolute lymphocyte countOrd ered By: Mary Prather on 05-18-2023 Lymphocytes Auto (Unsp spec) [#/Vol] 0.54 10*3/uL 0.83-4.51 [facility] Basophil percentageOrdered B y: Mary Prather on 05-18-2023 Basophils/100 WBC (Bld) 0.4 % 0-1 [facility] Bilirubin [Mass/Vol] 1.50 mg/dL 0.20-1.00 [facility] Comment on above: For patients on eltr ombopag therapy, use of Dimension [place] TBIL is not recommended. Chloride [Moles/Vol] 103 mmol/L 98-107 [facility] Eosinophils/100 WBC (Bld) 1.9 % 0-5 [facility] Glucose [Mass/Vol] 93 mg/dL 74-106 [facility] Neutrophils (Bld) [#/Vol] 3.9 10*3/uL 2.0-7.7 [facility] Neutrophils/100 WBC (Bld) 80.3 % 47-70 [facility] Potassium [Moles/Vol] 3.8 mmol/L 3.5-5.1 [facility] Protein [Mass/Vol] 5.2 g/dL 6.4-8.2 [facility] Sodium [Moles/Vol] 136 mmol/L 136-145 [facility] WBC (Bld) [#/Vol] 4.8 10*3/uL 4.4-11.0 [facility] Blood erythrocytes count (nu mber/volume)Ordered By: Mary Prather on 05-18-2023 RBC (Bld) [#/Vol] 2.64 10*6/uL 4.6-6.2 [facility] Blood hemoglobin measurement (mass/volume)Ordered By: Mary Prather on 05-18-2023 Hemoglobin (Bld) [Mass/Vol] 8.7 g/dL 13.0-16.5 [facility] Blood lymphocytes/100 leukoc ytesOrdered By: Mary Prather on 05-18-2023 Lymphocytes/100 WBC (Bld) 11.3 % 19-41 [facility] Blood monocytes/100 leukocyt esOrdered By: Mary Prather on 05-18-2023 Monocytes/100 WBC (Bld) 4.2 % 0-10 [facility] Blood platelet mean volumeOr dered By: Mary Prather on 05-18-2023 Platelet mean volume (Bld) [Entitic vol] 10.8 fL 6.2-12.0 [facility] Determination of erythrocyte mean corpuscular volume (MCV)Ordered By: Mary Prather on 05-18-2023 MCV (RBC) [Entitic vol] 103.0 fL 80-94 [facility] Hematocrit Auto (Bld) [Volum e fraction]Ordered By: Mary Prather on 05-18-2023 Hematocrit (Bld) [Volume fraction] 27.2 % 40-54 [facility] Laboratory - Chemistry and C hemistry - challengeOrdered By: Mary Prather on 05-18-2023 ALP [Catalytic activity/Vol] 134 U/L 45-117 [facility] ALT [Catalytic activity/Vol] 51 U/L 16-61 [facility] CO2 [Moles/Vol] 30.0 mmol/L 21.0-32.0 [facility] Globulin (S) [Mass/Vol] 3.1 g/dL 2.2-4.2 [facility] Urea nitrogen/Creatinine [Mass ratio] 29.8 mg/mg 10-20 [facility] Laboratory - Hematology and Cell countsOrdered By: Mary Prather on 05-18-2023 Anisocytosis Ql (Bld) 2+ [facility] Erythrocyte distribution width (RBC) [Entitic vol] 86.3 fL 35.1-43.9 [facility] Erythrocyte distribution width (RBC) [Ratio] 22.7 % 11.6-14.6 [facility] Immature granulocytes/100 WBC (Bld) 1.900 % 0.0-0.9 [facility] Comment on above: IG% - Immature Granu locytes (promyelocytes, myelocytes and metamyelocytes) > 1% indicates that a LEFT SHIFT is Present. MCH (RBC) [Entitic mass] 33.0 pg 27.0-32.0 [facility] Nucleated RBC/100 WBC (Bld) [Ratio] 0 % 0-5 [facility] MCHC Auto (RBC) [Mass/Vol]Or dered By: Mary Prather on 05-18-2023 MCHC (RBC) [Mass/Vol] 32.0 g/dL 32-36 [facility] Macrocytes detectionOrdered By: Mary Prather on 05-18-2023 Macrocytes Ql (Bld) 2+ [facility] No Panel InformationOrdered By: Mary Prather on 05-18-2023 Estimated Creatinine Clearance Calc 57.92 ml/min [facility] Estimated GFR (MDRD) Amer 111 mL/min >60 [facility] Comment on above: GFR Calc Estimated GFR (MDRD) Non-Af Amer 92 mL/min >60 [facility] Comment on above: Non- GFR Calc Platelets bldOrdered By: Ceci Prather on 05-18-2023 Platelets (Bld) [#/Vol] 216 10*3/uL 150-450 [facility] Serum or plasma albumin gris urement (mass/volume)Ordered By: Mary Prather on 05-18-2023 Albumin [Mass/Vol] 2.1 g/dL 3.2-5.0 [facility] Serum or plasma albumin/glob ulin mass ratioOrdered By: Mary Prather on 05-18-2023 Albumin/Globulin [Mass ratio] 0.7 {ratio} 0.9-2.4 [facility] Serum or plasma calcium gris urement (mass/volume)Ordered By: Mray Prather on 05-18-2023 Calcium [Mass/Vol] 8.2 mg/dL 8.5-10.1 [facility] Serum or plasma creatinine m easurement (mass/volume)Ordered By: Mary Prather on 05-18-2023 Creatinine [Mass/Vol] 0.84 mg/dL 0.70-1.30 [facility] Comment on above: The validity of the calculated GFR & GFRAA in patients over 70 years has not been determined. Clinical correlation is essential. Serum or plasma urea nitroge n measurement (mass/volume)Ordered By: Mary Prather on 05-18-2023 Urea nitrogen [Mass/Vol] 25 mg/dL 7-18 [facility] Thin prep Papanicolaou smear with manual screeningOrdered By: Mary Prather on 05-18-2023 Thin prep Papanicolaou smear with manual screening 21 U/L 15-37 [facility] Thin prep Papanicolaou smear with manual screening 3 5-15 [facility] Blood manual differential co mment interpretation (narrative result)Ordered By: Mary Prather on 05-17-2023 Manual differential comment Gregg (Bld) [Interp] SCANNED [facility] Blood polychromasia detectio n by light microscopyOrdered By: Mary Prather on 05-17-2023 Polychromasia LM Ql (Bld) RARE [facility] Blood schistocytes detection by light microscopyOrdered By: Mary Prather on 05-17-2023 Schistocytes LM Ql (Bld) RARE [facility] Laboratory - Chemistry and C hemistry - challengeOrdered By: Marshal Rebolledo on 05-17-2023 Cobalamin (Vitamin B12) [Mass/Vol] 341 pg/mL 211-911 [facility] Laboratory - Microbiology an d Antimicrobial susceptibilityOrdered By: Marshal Rebolledo on 05-17-2023 Bacteria identified Cx Nom (Bld) No growth in 5 days. [facility] Serum or plasma folate measu rement (mass/volume)Ordered By: Marshal Rebolledo on 05-17-2023 Folate [Mass/Vol] 30.10 ng/mL 3.1-55.4 [facility] Thin prep Papanicolaou smear with manual screeningOrdered By: Mary Prather on 05-17-2023 Thin prep Papanicolaou smear with manual screening 1+ [facility] Vancomycin troughOrdered By: Marshal Rebolledo on 05-17-2023 Vancomycin trough [Mass/Vol] 15.3 ug/mL 5.0-15.0 [facility] Comment on above: VANCOMYCIN STANDARED DRUG THERAPY TROUGH LEVEL: 5.0 - 15.0 mg/L VANCOMYCIN HIGH INTENSITY THERAPY TROUGH LEVEL: 15.0 - 20.0 mg/L High Intensity therapy recommended for serious lifethreatening infections include:- Zuumokiigu-Ooxcnzukowpi-Yjibaglkr (Ventilator/Healtcare Associated)-Sepsis PLEASE CONTACT PHARMACY SERVICES (#1318) FOR INTERPRETATIONOF RESULTS. No Panel InformationOrdered By: Marshal Rebolledo on 05-16-2023 RBC Folate Hemolysate > 620.0 ng/mL Not Estab. [facility] Red Blood Cell Folate > 2322 ng/mL >[address] [facility] Comment on above: Performed at: [address] Director: Juan Manuel Uriostegui PhD, Phone: [phone] Thin prep Papanicolaou smear with manual screeningOrdered By: Marshal Rebolledo on 05-16-2023 Thin prep Papanicolaou smear with manual screening 26.7 % 37.5-51.0 [facility] Whole blood hemoglobin A1c/t otal hemoglobin ratio (mass fraction)Ordered By: Mary Prather on 05-16-2023 HbA1c (Bld) [Mass fraction] 6.9 % 3.8-5.6 [facility] Comment on above: Normal < 5.7 % Predi abetic 5.7 - 6.4 % Diabetic >or= 6.5 % Please note range changes. Blood platelet adequacy dete ction by light microscopyOrdered By: Mary Prather on 05-15-2023 Platelets LM Ql (Bld) ADEQUATE ADEQ [facility] Glucose Glucometer (BldC) [M ass/Vol]Ordered By: Mary Prather on 05-15-2023 Glucose [Mass/Vol] 147 mg/dL 74-106 [facility] Comment on above: MANAGEMENT OF PATIEN T CARE PER NURSING PROTOCOL INR in Blood by Coagulation assayOrdered By: Mary Prather on 05-15-2023 INR Coag (Bld) [Relative time] 1.5 {INR} [facility] Laboratory - Chemistry and C hemistry - challengeOrdered By: Mary Prather on 05-15-2023 Magnesium [Mass/Vol] 1.9 mg/dL 1.6-2.6 [facility] Laboratory - CoagulationOrde red By: Mary Prather on 05-15-2023 PT Coag (PPP) [Time] 18.2 s 11.7-14.9 [facility] No Panel InformationOrdered By: Mary Prather on 05-15-2023 Digoxin Level 1.39 ng/mL 0.80-2.00 [facility] Thyroid Stimulating Hormone (TSH) 0.61 uIU/mL 0.358-3.74 [facility] Absolute lymphocyte countOrd ered By: Pedro Diaz on 05-14-2023 Lymphocytes Auto (Unsp spec) [#/Vol] 0.39 10*3/uL 0.83-4.51 [facility] Basophil percentageOrdered B y: Pedro Diaz on 05-14-2023 Lactate [Moles/Vol] 2.4 mmol/L 0.4-2.0 [facility] Comment on above: Critical Result(s) C alled at: 18:12:55 05/14/2023 by: Yue LEWIS. Results read back by same. Basophils/100 WBC (Bld) 0.4 % 0-1 [facility] Bilirubin [Mass/Vol] 1.20 mg/dL 0.20-1.00 [facility] Comment on above: For patients on eltr ombopag therapy, use of Dimension [place] TBIL is not recommended. Chloride [Moles/Vol] 96 mmol/L 98-107 [facility] Eosinophils/100 WBC (Bld) 0.0 % 0-5 [facility] Glucose [Mass/Vol] 252 mg/dL 74-106 [facility] Comment on above: Glucose result great er than or equal to 200 mg/dLsuggests DIABETES MELLITUS per A.D.A. criteria. Lactate [Moles/Vol] 3.8 mmol/L 0.4-2.0 [facility] Comment on above: Critical Result(s) C alled at: 13:57:26 05/14/2023 by: Tari Martínez. Results read back by same. Neutrophils (Bld) [#/Vol] 6.2 10*3/uL 2.0-7.7 [facility] Neutrophils/100 WBC (Bld) 89.7 % 47-70 [facility] Potassium [Moles/Vol] 4.5 mmol/L 3.5-5.1 [facility] Protein [Mass/Vol] 5.4 g/dL 6.4-8.2 [facility] Sodium [Moles/Vol] 136 mmol/L 136-145 [facility] WBC (Bld) [#/Vol] 7.0 10*3/uL 4.4-11.0 [facility] Blood erythrocytes count (nu mber/volume)Ordered By: Pedro Diaz on 05-14-2023 RBC (Bld) [#/Vol] 2.84 10*6/uL 4.6-6.2 [facility] Blood hemoglobin measurement (mass/volume)Ordered By: Pedro Diaz on 05-14-2023 Hemoglobin (Bld) [Mass/Vol] 9.3 g/dL 13.0-16.5 [facility] Blood lymphocytes/100 leukoc ytesOrdered By: Pedro Diaz on 05-14-2023 Lymphocytes/100 WBC (Bld) 5.6 % 19-41 [facility] Blood manual differential co mment interpretation (narrative result)Ordered By: Pedro Diaz on 05-14-2023 Manual differential comment Gregg (Bld) [Interp] SCANNED [facility] Blood monocytes/100 leukocyt esOrdered By: Pedro Diaz on 05-14-2023 Monocytes/100 WBC (Bld) 2.7 % 0-10 [facility] Blood platelet mean volumeOr dered By: Pedro Diaz on 05-14-2023 Platelet mean volume (Bld) [Entitic vol] 10.7 fL 6.2-12.0 [facility] Blood polychromasia detectio n by light microscopyOrdered By: Pedro Diaz on 05-14-2023 Polychromasia LM Ql (Bld) RARE [facility] Determination of erythrocyte mean corpuscular volume (MCV)Ordered By: Pedro Diaz on 05-14-2023 MCV (RBC) [Entitic vol] 103.2 fL 80-94 [facility] Hematocrit Auto (Bld) [Volum e fraction]Ordered By: Pedro Diaz on 05-14-2023 Hematocrit (Bld) [Volume fraction] 29.3 % 40-54 [facility] INR in Blood by Coagulation assayOrdered By: Pedro Diaz on 05-14-2023 INR Coag (Bld) [Relative time] 1.5 {INR} [facility] Laboratory - Chemistry and C hemistry - challengeOrdered By: Pedro Diaz on 05-14-2023 ALP [Catalytic activity/Vol] 92 U/L 45-117 [facility] ALT [Catalytic activity/Vol] 51 U/L 16-61 [facility] CO2 [Moles/Vol] 35.0 mmol/L 21.0-32.0 [facility] Globulin (S) [Mass/Vol] 2.7 g/dL 2.2-4.2 [facility] Natriuretic peptide B (Bld) [Mass/Vol] 972.1 pg/mL 0-100 [facility] Urea nitrogen/Creatinine [Mass ratio] 26.5 mg/mg 10-20 [facility] Laboratory - CoagulationOrde red By: Pedro Diaz on 05-14-2023 aPTT Coag (Bld) [Time] 30.3 s 24.1-36.[address] [facility] PT Coag (PPP) [Time] 18.6 s 11.7-14.9 [facility] Laboratory - Hematology and Cell countsOrdered By: Pedro Diaz on 05-14-2023 Anisocytosis Ql (Bld) 2+ [facility] Erythrocyte distribution width (RBC) [Entitic vol] 83.3 fL 35.1-43.9 [facility] Erythrocyte distribution width (RBC) [Ratio] 22.2 % 11.6-14.6 [facility] Immature granulocytes/100 WBC (Bld) 1.600 % 0.0-0.9 [facility] Comment on above: IG% - Immature Granu locytes (promyelocytes, myelocytes and metamyelocytes) > 1% indicates that a LEFT SHIFT is Present. MCH (RBC) [Entitic mass] 32.7 pg 27.0-32.0 [facility] Nucleated RBC/100 WBC (Bld) [Ratio] 0.4 % 0-5 [facility] MCHC Auto (RBC) [Mass/Vol]Or dered By: Pedro Diaz on 05-14-2023 MCHC (RBC) [Mass/Vol] 31.7 g/dL 32-36 [facility] Macrocytes detectionOrdered By: Pedro Diaz on 05-14-2023 Macrocytes Ql (Bld) 1+ [facility] No Panel InformationOrdered By: Pedro Diaz on 05-14-2023 Estimated Creatinine Clearance Calc 41.59 ml/min [facility] Estimated GFR (MDRD) Amer 76 mL/min >60 [facility] Comment on above: GFR Calc Estimated GFR (MDRD) Non-Af Amer 63 mL/min >60 [facility] Comment on above: Non- GFR Calc Troponin I High Sensitivity 111 pg/mL 3.0-78.0 [facility] Comment on above: Please Note: New Lina t Units and Gender Specific Reference Ranges. For more information see Policy Stat Procedure [place] High Sensitivity Troponin (TNIH) and attachments. Platelets bldOrdered By: Mago Diaz on 05-14-2023 Platelets (Bld) [#/Vol] 399 10*3/uL 150-450 [facility] Serum or plasma albumin gris urement (mass/volume)Ordered By: Pedro Diaz on 05-14-2023 Albumin [Mass/Vol] 2.7 g/dL 3.2-5.0 [facility] Serum or plasma albumin/glob ulin mass ratioOrdered By: Pedro Diaz on 05-14-2023 Albumin/Globulin [Mass ratio] 1.0 {ratio} 0.9-2.4 [facility] Serum or plasma calcium gris urement (mass/volume)Ordered By: Pedro Diaz on 05-14-2023 Calcium [Mass/Vol] 8.4 mg/dL 8.5-10.1 [facility] Serum or plasma creatinine m easurement (mass/volume)Ordered By: Pedro Diaz on 05-14-2023 Creatinine [Mass/Vol] 1.17 mg/dL 0.70-1.30 [facility] [facility] Comment on above: The validity of the calculated GFR & GFRAA in patients over 70 years has not been determined. Clinical correlation is essential. Serum or plasma urea nitroge n measurement (mass/volume)Ordered By: Pedro Diaz on 05-14-2023 Urea nitrogen [Mass/Vol] 31 mg/dL 7-18 [facility] Thin prep Papanicolaou smear with manual screeningOrdered By: Pedro Diaz on 05-14-2023 Thin prep Papanicolaou smear with manual screening 20 U/L 15-37 [facility] Thin prep Papanicolaou smear with manual screening 5 5-15 [facility] No Panel InformationOrdered By: [facility] 05-06-2023 Digoxin Level 0.96 ng/mL 0.80-2.00 [facility] CBC W Auto Differential pane l (Bld)on 05-04-2023 Basophils (Bld) [#/Vol] 0.04 10*3/uL <0.11 k/uL [facility] Basophils/100 WBC (Bld) 1.5 % [facility] Differential cell count method Nom (Bld) Auto [facility] Eosinophils (Bld) [#/Vol] 0.06 10*3/uL <0.46 k/uL [facility] Eosinophils/100 WBC (Bld) 2.3 % [facility] Erythrocyte distribution width (RBC) [Ratio] 22.0 % High 11.5 - 15.0 % [facility] Hematocrit (Bld) [Volume fraction] 28.2 % Low 39.0 - 51.0 % [facility] Hemoglobin (Bld) [Mass/Vol] 9.2 g/dL Low 13.0 - 17.0 g/dL [facility] Immature granulocytes (Bld) [#/Vol] <0.10 k/uL [facility] Immature granulocytes/100 WBC (Bld) 0.4 % [facility] Lymphocytes (Bld) [#/Vol] 0.63 10*3/uL Low 1.00 - 4.00 k/uL [facility] Lymphocytes/100 WBC (Bld) 24.2 % [facility] MCH (RBC) [Entitic mass] 33.7 pg 26.0 - 34.0 pg [facility] MCHC (RBC) [Mass/Vol] 32.6 g/dL 30.5 - 36.0 g/dL [facility] MCV (RBC) [Entitic vol] 103.3 fL High 80.0 - 100.0 fL [facility] Monocytes (Bld) [#/Vol] 0.17 10*3/uL <0.87 k/uL [facility] Monocytes/100 WBC (Bld) 6.5 % [facility] Neutrophils (Bld) [#/Vol] 1.69 10*3/uL 1.45 - 7.50 k/uL [facility] Neutrophils/100 WBC (Bld) 65.1 % [facility] Nucleated RBC (Bld) [#/Vol] <0.01 k/uL [facility] Nucleated RBC/100 WBC (Bld) [Ratio] 0.0 /100 WBC [facility] Platelet mean volume (Bld) [Entitic vol] 10.1 fL 9.0 - 12.7 fL [facility] Platelets (Bld) [#/Vol] 338 10*3/uL 150 - 400 k/uL [facility] RBC (Bld) [#/Vol] 2.73 10*6/uL Low 4.20 - 6.00 m/uL [facility] WBC (Bld) [#/Vol] 2.60 10*3/uL Low 3.70 - 11.00 k/uL [facility] No Panel InformationOrdered By: Gilbert Living on 05-04-2023 Troponin I High Sensitivity 116 pg/mL 3.0-78.0 [facility] Comment on above: Please Note: New Lina t Units and Gender Specific Reference Ranges. For more information see Policy Stat Procedure [place] High Sensitivity Troponin (TNIH) and attachments. CT BRAIN WO IVCONon 04-21-20 23 [facility] CNPNon 04-20-2023 CNPN Normal [facility] Basic metabolic 2000 panelon 03-20-2023 Anion gap [Moles/Vol] 4 mmol/L Low 9-18 [facility] Comment on above: Order Comment: Speci men Type: BLOOD SPECIMENOrdering Facility: [facility] Address: [address] [place] [address] Performed By: #### 2 4321-2 ####PEG SAUCEDA GREEN LABCLIA [id number] [place] [address] [place] Calcium [Mass/Vol] 8.8 mg/dL Normal 8.6-10.3 [facility] Comment on above: Order Comment: Speci men Type: BLOOD SPECIMENOrdering Facility: [facility] Address: [address] [place] [address] Performed By: #### 2 4321-2 ####BELLOALIREZA SAUCEDA GREEN LABCLIA [id number] [place] [address] [place] Chloride [Moles/Vol] 102 mmol/L Normal 101-111 [facility] Comment on above: Order Comment: Speci men Type: BLOOD SPECIMENOrdering Facility: [facility] Address: [address] [place] [address] Performed By: #### 2 4321-2 ####BELLOALIREZA SAUCEDA [facility] LABCLIA [id number] [place] [address] [place] CO2 [Moles/Vol] 35 mmol/L High 21-31 [facility] Comment on above: Order Comment: Speci men Type: BLOOD SPECIMENOrdering Facility: [facility] Address: [address] [place] [address] Performed By: #### 2 4321-2 ####PEG SAUCEDA GREEN LABCLIA [id number] [place] [address] [place] Creatinine [Mass/Vol] 1.05 mg/dL Normal 0.60-1.30 [facility] Comment on above: Order Comment: Speci men Type: BLOOD SPECIMENOrdering Facility: [facility] Address: [address] [place] [address] Result Comment: Use of this assay is not recommended for patients undergoing treatment with phenindione, due to the potential for falsely depressed results. Performed By: #### 2 4321-2 ####PEG WOODARDIA [id number] [place] [address] [place] ESTIMATED GLOMERULAR FILTRATION RATE 69 mL/min/1.73m??? Normal >=60 [facility] Comment on above: Order Comment: Elfego gilbert Type: BLOOD SPECIMENOrdering Facility: [facility] Address: [address] [place] [address] Result Comment: Concepción mated Glomerular Filtration Rate [...] Performed By: #### 2 4321-2 ####PEG LLANESIA [id number] [place] [address] [place] Glucose [Mass/Vol] 115 mg/dL High 74-99 [facility] Comment on above: Order Comment: Elfego gilbert Type: BLOOD SPECIMENOrdering Facility: [facility] Address: [address] [place] [address] Result Comment: The Citizen Of [place] Diabetes Association (ADA) provides guidance for cutoff [...] Standards of Medical Care in Diabetes 2016, Citizen Of [place] Diabetes Association. Diabetes Care. 2016.39(Suppl 1). Performed By: #### 2 4321-2 ####PEG LLANESIA [id number] [place] [address] [place] Potassium [Moles/Vol] 3.9 mmol/L Normal 3.6-5.1 [facility] Comment on above: Order Comment: Speci men Type: BLOOD SPECIMENOrdering Facility: [facility] Address: [address] [place] [address] Performed By: #### 2 4321-2 ####PEG SAUCEDA GREEN LABCLIA [id number] [place] [address] [place] Sodium [Moles/Vol] 141 mmol/L Normal 136-144 [facility] Comment on above: Order Comment: Speci men Type: BLOOD SPECIMENOrdering Facility: [facility] Address: [address] [place] [address] Performed By: #### 2 4321-2 ####PERRY CHARMS [facility] LABCLIA [id number] [place] [address] [place] Urea nitrogen [Mass/Vol] 32 mg/dL High 7-25 [facility] Comment on above: Order Comment: Speci men Type: BLOOD SPECIMENOrdering Facility: [facility] Address: [address] [place] [address] Performed By: #### 2 4321-2 ####PEG SAUCEDA [facility] LABCLIA [id number] [place] [address] [place] CBC W Auto Differential pane l (Bld)on 03-20-2023 Basophils (Bld) [#/Vol] 0.03 10*3/uL Normal <0.11 [facility] Comment on above: Order Comment: Speci men Type: BLOOD SPECIMENOrdering Facility: [facility] Address: [address] [place] [address] Performed By: #### 5 7021-8 ####VTALIREZA Verafin GREEN LABCLIA [id number] [place] [address] [place] Basophils/100 WBC (Bld) 0.6 % Normal [facility] Comment on above: Order Comment: Speci men Type: BLOOD SPECIMENOrdering Facility: [facility] Address: [address] [place] [address] Performed By: #### 5 7021-8 ####PEG SAUCEDA GREEN LABCLIA [id number] [place] [address] [facility] [place] Differential cell count method Nom (Bld) Auto Normal [facility] Comment on above: Order Comment: Speci men Type: BLOOD SPECIMENOrdering Facility: [facility] Address: [address] [place] [address] Performed By: #### 5 7021-8 ####PEG SAUCEDA GREEN LABCLIA [id number] [place] [address] [place] Eosinophils (Bld) [#/Vol] 0.11 10*3/uL Normal <0.46 [facility] Comment on above: Order Comment: Speci men Type: BLOOD SPECIMENOrdering Facility: [facility] Address: [address] [place] [address] Performed By: #### 5 7021-8 ####PEG SAUCEDA GREEN LABCLIA [id number] [address] [place] Eosinophils/100 WBC (Bld) 2.1 % Normal [facility] Comment on above: Order Comment: Speci men Type: BLOOD SPECIMENOrdering Facility: [facility] Address: [address] [place] [address] Performed By: #### 5 7021-8 ####PEG SAUCEDA GREEN LABCLIA [id number] [place] [address] [place] Erythrocyte distribution width (RBC) [Ratio] 21.1 % High 11.5-15.0 [facility] Comment on above: Order Comment: Speci men Type: BLOOD SPECIMENOrdering Facility: [facility] Address: [address] [place] [address] Performed By: #### 5 7021-8 ####[facility] LABCLIA [id number] [place] [address] [place] Hematocrit (Bld) [Volume fraction] 30.8 % Low 39.0-51.0 [facility] Comment on above: Order Comment: Speci men Type: BLOOD SPECIMENOrdering Facility: [facility] Address: [address] [place] [address] Performed By: #### 5 7021-8 ####PEG YANG LABCLIA [id number] [place] [address] [place] Hemoglobin (Bld) [Mass/Vol] 9.9 g/dL Low 13.0-17.0 [facility] Comment on above: Order Comment: Speci men Type: BLOOD SPECIMENOrdering Facility: [facility] Address: [address] [place] [address] Performed By: #### 5 7021-8 ####VTALIREZA YANG LABCLIA [id number] [place] [address] [place] Immature granulocytes (Bld) [#/Vol] 0.04 10*3/uL Normal <0.10 [facility] Comment on above: Order Comment: Speci men Type: BLOOD SPECIMENOrdering Facility: [facility] Address: [address] [place] [address] Performed By: #### 5 7021-8 ####PEG YANG LABCLIA [id number] [place] [address] [place] Immature granulocytes/100 WBC (Bld) 0.8 % Normal [facility] Comment on above: Order Comment: Speci men Type: BLOOD SPECIMENOrdering Facility: [facility] Address: [address] [place] [address] Performed By: #### 5 7021-8 ####PEG YANG LABCLIA [id number] [place] [address] [place] Lymphocytes (Bld) [#/Vol] 1.05 10*3/uL Normal 1.00-4.00 [facility] Comment on above: Order Comment: Speci men Type: BLOOD SPECIMENOrdering Facility: [facility] Address: [address] [place] [address] Performed By: #### 5 7021-8 ####[facility] LABCLIA [id number] [place] [address] [place] Lymphocytes/100 WBC (Bld) 20.3 % Normal [facility] Comment on above: Order Comment: Speci men Type: BLOOD SPECIMENOrdering Facility: [facility] Address: [address] [place] [address] Performed By: #### 5 7021-8 ####[facility] LABCLIA [id number] [place] [address] [place] MCH (RBC) [Entitic mass] 35.4 pg High 26.0-34.0 [facility] Comment on above: Order Comment: Speci men Type: BLOOD SPECIMENOrdering Facility: [facility] Address: [address] [place] [address] Performed By: #### 5 7021-8 ####[facility] LABIA [id number] [address] [place] MCHC (RBC) [Mass/Vol] 32.1 g/dL Normal 30.5-36.0 [facility] Comment on above: Order Comment: Speci men Type: BLOOD SPECIMENOrdering Facility: [facility] Address: [address] [place] [address] Performed By: #### 5 7021-8 ####[facility] LABCLIA [id number] [place] [address] [place] MCV (RBC) [Entitic vol] 110.0 fL High 80.0-100.0 [facility] Comment on above: Order Comment: Speci men Type: BLOOD SPECIMENOrdering Facility: [facility] Address: [address] [place] [address] Performed By: #### 5 7021-8 ####PEG SAUCEDA GREEN LABCLIA [id number] [place] [address] [place] Monocytes (Bld) [#/Vol] 0.38 10*3/uL Normal <0.87 [facility] Comment on above: Order Comment: Speci men Type: BLOOD SPECIMENOrdering Facility: [facility] Address: [address] [place] [address] Performed By: #### 5 7021-8 ####PEG SAUCEDA GREEN LABCLIA [id number] [place] [address] [place] Monocytes/100 WBC (Bld) 7.4 % Normal [facility] Comment on above: Order Comment: Speci men Type: BLOOD SPECIMENOrdering Facility: [facility] Address: [address] [place] [address] Performed By: #### 5 7021-8 ####PEG SAUCEDA GREEN LABCLIA [id number] [place] [address] [place] Neutrophils (Bld) [#/Vol] 3.55 10*3/uL Normal 1.45-7.50 [facility] Comment on above: Order Comment: Speci men Type: BLOOD SPECIMENOrdering Facility: [facility] Address: [address] [place] [address] Performed By: #### 5 7021-8 ####PEG SAUCEDA GREEN LABCLIA [id number] [place] [address] [place] Neutrophils/100 WBC (Bld) 68.8 % Normal [facility] Comment on above: Order Comment: Speci men Type: BLOOD SPECIMENOrdering Facility: [facility] Address: [address] [place] [address] Performed By: #### 5 7021-8 ####PEG SAUCEDA GREEN LABCLIA [id number] [place] [address] [place] Nucleated RBC (Bld) [#/Vol] Normal [facility] Comment on above: Order Comment: Speci men Type: BLOOD SPECIMENOrdering Facility: [facility] Address: [address] [place] [address] Performed By: #### 5 7021-8 ####PEG YANG LABCLIA [id number] [address] [place] Nucleated RBC/100 WBC (Bld) [Ratio] Normal [facility] Comment on above: Order Comment: Speci men Type: BLOOD SPECIMENOrdering Facility: [facility] Address: [address] [place] [address] Performed By: #### 5 7021-8 ####PEG YANG LABCLIA [id number] [place] [address] [place] Platelet mean volume (Bld) [Entitic vol] 11.2 fL Normal 9.0-12.7 [facility] Comment on above: Order Comment: Speci men Type: BLOOD SPECIMENOrdering Facility: [facility] Address: [address] [place] [address] Performed By: #### 5 7021-8 ####VTALIREZA YANG LABCLIA [id number] [place] [address] [place] Platelets (Bld) [#/Vol] 382 10*3/uL Normal 150-400 [facility] Comment on above: Order Comment: Speci men Type: BLOOD SPECIMENOrdering Facility: [facility] Address: [address] Performed By: #### 5 7021-8 ####[facility] Y[facility] LABCLIA [id number] [place] [address] [place] RBC (Bld) [#/Vol] 2.80 10*6/uL Low 4.20-6.00 [facility] Comment on above: Order Comment: Speci men Type: BLOOD SPECIMENOrdering Facility: [facility] Address: [address] Performed By: #### 5 7021-8 ####PERRY GENERAL YANG LABCLIA [id number] [place] [address] [place] [facility] WBC (Bld) [#/Vol] 5.16 10*3/uL Normal 3.70-11.00 [facility] Comment on above: Order Comment: Speci men Type: BLOOD SPECIMENOrdering Facility: [facility] Address: [address] [place] [address] Performed By: #### 5 7021-8 ####[facility] LABCLIA [id number] [place] [address] [facility] ECG COMPLETEon 03-20-2023 ECG COMPLETE Normal [facility] ED PROV NOTEon 03-20-2023 ED PROV NOTE Normal [facility] XR FOOT 3V AP/LAT/OBL RTon 0 03-20-2023 XR FOOT 3V AP/LAT/OBL RT Normal [facility] aPTT PPPon 03-20-2023 aPTT Coag (PPP) [Time] 29.2 s Normal 23.0-32.4 [facility] Comment on above: Order Comment: Speci men Type: BLOOD SPECIMENOrdering Facility: [facility] Address: [address] [place] [address] Performed By: #### 1 4979-9 ####[facility] H[facility]PITAL[facility] [id number] [place] [address] [facility] CNOVSPon 03-11-2023 CNOVSP Normal [facility] CBC W Auto Differential pane l (Bld)on 03-09-2023 Basophils (Bld) [#/Vol] 0.09 10*3/uL Normal <0.11 [facility] Comment on above: Order Comment: Speci men Type: BLOOD SPECIMENOrdering Facility: [facility] Address: [address] [place] [address] Performed By: #### 5 7021-8 ####PERRY ANOKA LABCLIA [id number] [place] [id number] Basophils/100 WBC (Bld) 3.5 % Normal [facility] Comment on above: Order Comment: Speci men Type: BLOOD SPECIMENOrdering Facility: [facility] Address: [address] [place] [address] Performed By: #### 5 7021-8 ####PEG SAUCEDA GREEN LABCLIA [id number] [place] [address] [facility] Differential cell count method Nom (Bld) Auto Normal [facility] Comment on above: Order Comment: Speci men Type: BLOOD SPECIMENOrdering Facility: [facility] Address: [address] [place] [address] Performed By: #### 5 7021-8 ####BELLOALIREZA SAUCEDA GREEN LABCLIA [id number] [place] [address] [place] Eosinophils (Bld) [#/Vol] 0.09 10*3/uL Normal <0.46 [facility] Comment on above: Order Comment: Speci men Type: BLOOD SPECIMENOrdering Facility: [facility] Address: [address] [place] [address] Performed By: #### 5 7021-8 ####BELLOALIREZA SAUCEDA GREEN LABCLIA [id number] [place] [address] [place] Eosinophils/100 WBC (Bld) 3.5 % Normal [facility] Comment on above: Order Comment: Speci men Type: BLOOD SPECIMENOrdering Facility: [facility] Address: [address] [place] [address] Performed By: #### 5 7021-8 ####PEG SAUCEDA GREEN LABCLIA [id number] [place] [address] [place] Erythrocyte distribution width (RBC) [Ratio] 20.2 % High 11.5-15.0 [facility] Comment on above: Order Comment: Speci men Type: BLOOD SPECIMENOrdering Facility: [facility] Address: [address] [place] [address] Performed By: #### 5 7021-8 ####VTALIREZA YANG LABCLIA [id number] [place] [address] [place] Hematocrit (Bld) [Volume fraction] 28.7 % Low 39.0-51.0 [facility] Comment on above: Order Comment: Speci men Type: BLOOD SPECIMENOrdering Facility: [facility] Address: [address] [place] [address] Performed By: #### 5 7021-8 ####PEG YANG LABCLIA [id number] [place] [address] [place] Hemoglobin (Bld) [Mass/Vol] 8.8 g/dL Low 13.0-17.0 [facility] Comment on above: Order Comment: Speci men Type: BLOOD SPECIMENOrdering Facility: [facility] Address: [address] [place] [address] Performed By: #### 5 7021-8 ####[facility] YANG LABCLIA [id number] [address] [place] Immature granulocytes (Bld) [#/Vol] 10*3/uL Normal <0.10 [facility] Comment on above: Order Comment: Speci men Type: BLOOD SPECIMENOrdering Facility: [facility] Address: [address] [place] [address] Performed By: #### 5 7021-8 ####VTALIREZA YANG LABCLIA [id number] [place] [address] [facility] [place] Immature granulocytes/100 WBC (Bld) 0.0 % Normal [facility] Comment on above: Order Comment: Speci men Type: BLOOD SPECIMENOrdering Facility: [facility] Address: [address] [place] [address] Performed By: #### 5 7021-8 ####PERRY GREEN LABCLIA [id number] [place] [address] [facility] [place] Lymphocytes (Bld) [#/Vol] 0.81 10*3/uL Low 1.00-4.00 [facility] Comment on above: Order Comment: Speci men Type: BLOOD SPECIMENOrdering Facility: [facility] Address: [address] [place] [address] Performed By: #### 5 7021-8 ####VTALIREZA [facility] LABCLIA [id number] [address] [place] Lymphocytes/100 WBC (Bld) 31.6 % Normal [facility] Comment on above: Order Comment: Speci men Type: BLOOD SPECIMENOrdering Facility: [facility] Address: [address] [place] [address] Performed By: #### 5 7021-8 ####[facility] LABIA [id number] [place] [address] [place] MCH (RBC) [Entitic mass] 34.5 pg High 26.0-34.0 [facility] Comment on above: Order Comment: Speci men Type: BLOOD SPECIMENOrdering Facility: [facility] Address: [address] [place] [address] Performed By: #### 5 7021-8 ####[facility] LABIA [id number] [address] [place] MCHC (RBC) [Mass/Vol] 30.7 g/dL Normal 30.5-36.0 [facility] Comment on above: Order Comment: Speci men Type: BLOOD SPECIMENOrdering Facility: [facility] Address: [address] [place] [address] Performed By: #### 5 7021-8 ####[facility] LABCLIA [id number] [place] [address] [place] MCV (RBC) [Entitic vol] 112.5 fL High 80.0-100.0 [facility] Comment on above: Order Comment: Speci men Type: BLOOD SPECIMENOrdering Facility: [facility] Address: [address] [place] [address] Performed By: #### 5 7021-8 ####PEG SAUCEDA GREEN LABCLIA [id number] [place] [address] [place] Monocytes (Bld) [#/Vol] 0.15 10*3/uL Normal <0.87 [facility] Comment on above: Order Comment: Speci men Type: BLOOD SPECIMENOrdering Facility: [facility] Address: [address] [place] [address] Performed By: #### 5 7021-8 ####PEG SAUCEDA GREEN LABCLIA [id number] [place] [address] [place] Monocytes/100 WBC (Bld) 5.9 % Normal [facility] Comment on above: Order Comment: Speci men Type: BLOOD SPECIMENOrdering Facility: [facility] Address: [address] [place] [address] Performed By: #### 5 7021-8 ####PEG SAUCEDA GREEN LABCLIA [id number] [place] [address] [place] Neutrophils (Bld) [#/Vol] 1.42 10*3/uL Low 1.45-7.50 [facility] Comment on above: Order Comment: Speci men Type: BLOOD SPECIMENOrdering Facility: [facility] Address: [address] [place] [address] Performed By: #### 5 7021-8 ####PEG SAUCEDA GREEN LABCLIA [id number] [place] [id number] [place] Neutrophils/100 WBC (Bld) 55.5 % Normal [facility] Comment on above: Order Comment: Speci men Type: BLOOD SPECIMENOrdering Facility: [facility] Address: [address] [place] [address] Performed By: #### 5 7021-8 ####PEG SAUCEDA GREEN LABCLIA [id number] [place] [id number] [place] Nucleated RBC (Bld) [#/Vol] Normal [facility] Comment on above: Order Comment: Speci men Type: BLOOD SPECIMENOrdering Facility: [facility] Address: [address] [place] [address] Performed By: #### 5 7021-8 ####PEG SAUCEDA GREEN LABCLIA [id number] [place] [address] [place] Nucleated RBC/100 WBC (Bld) [Ratio] Normal [facility] Comment on above: Order Comment: Speci men Type: BLOOD SPECIMENOrdering Facility: [facility] Address: [address] [address] Performed By: #### 5 7021-8 ####PEG YANG LABCLIA [id number] [place] [address] [place] Platelet mean volume (Bld) [Entitic vol] 10.4 fL Normal 9.0-12.7 [facility] Comment on above: Order Comment: Speci men Type: BLOOD SPECIMENOrdering Facility: [facility] Address: [address] [place] [address] Performed By: #### 5 7021-8 ####BELLOALIREZA YANG LABCLIA [id number] [place] [address] [place] Platelets (Bld) [#/Vol] 359 10*3/uL Normal 150-400 [facility] Comment on above: Order Comment: Speci men Type: BLOOD SPECIMENOrdering Facility: [facility] Address: [address] Performed By: #### 5 7021-8 ####PERRY GREEN LABCLIA [id number] [place] [address] [place] RBC (Bld) [#/Vol] 2.55 10*6/uL Low 4.20-6.00 [facility] Comment on above: Order Comment: Speci men Type: BLOOD SPECIMENOrdering Facility: [facility] Address: [address] [place] [address] [place] [address] Performed By: #### 5 7021-8 ####PERRY [facility] YANG LABCLIA [id number] [place] [address] [place] WBC (Bld) [#/Vol] 2.56 10*3/uL Low 3.70-11.00 [facility] Comment on above: Order Comment: Speci men Type: BLOOD SPECIMENOrdering Facility: [facility] Address: [address] [id number] Performed By: #### 5 7021-8 ####VTALIREZA YANG LABCLIA [id number] [place] [address] [place] Basophils (Bld) [#/Vol] 0.09 10*3/uL <0.11 k/uL [facility] Basophils/100 WBC (Bld) 3.5 % [facility] Differential cell count method Nom (Bld) Auto [facility] Eosinophils (Bld) [#/Vol] 0.09 10*3/uL <0.46 k/uL [facility] Eosinophils/100 WBC (Bld) 3.5 % [facility] Erythrocyte distribution width (RBC) [Ratio] 20.2 % High 11.5 - 15.0 % [facility] Hematocrit (Bld) [Volume fraction] 28.7 % Low 39.0 - 51.0 % [facility] Hemoglobin (Bld) [Mass/Vol] 8.8 g/dL Low 13.0 - 17.0 g/dL [facility] Immature granulocytes (Bld) [#/Vol] <0.10 k/uL [facility] Immature granulocytes/100 WBC (Bld) 0.0 % [facility] Lymphocytes (Bld) [#/Vol] 0.81 10*3/uL Low 1.00 - 4.00 k/uL [facility] Lymphocytes/100 WBC (Bld) 31.6 % [facility] MCH (RBC) [Entitic mass] 34.5 pg High 26.0 - 34.0 pg [facility] MCHC (RBC) [Mass/Vol] 30.7 g/dL 30.5 - 36.0 g/dL [facility] MCV (RBC) [Entitic vol] 112.5 fL High 80.0 - 100.0 fL [facility] Monocytes (Bld) [#/Vol] 0.15 10*3/uL <0.87 k/uL [facility] Monocytes/100 WBC (Bld) 5.9 % [facility] Neutrophils (Bld) [#/Vol] 1.42 10*3/uL Low 1.45 - 7.50 k/uL [facility] Neutrophils/100 WBC (Bld) 55.5 % [facility] Nucleated RBC (Bld) [#/Vol] [facility] Nucleated RBC/100 WBC (Bld) [Ratio] [facility] Platelet mean volume (Bld) [Entitic vol] 10.4 fL 9.0 - 12.7 fL [facility] Platelets (Bld) [#/Vol] 359 10*3/uL 150 - 400 k/uL [facility] RBC (Bld) [#/Vol] 2.55 10*6/uL Low 4.20 - 6.00 m/uL [facility] WBC (Bld) [#/Vol] 2.56 10*3/uL Low 3.70 - 11.00 k/uL [facility] Comprehensive metabolic 2000 panelon 03-09-2023 Albumin [Mass/Vol] 3.5 g/dL Normal 3.5-5.7 [facility] Comment on above: Order Comment: Speci men Type: BLOOD SPECIMENOrdering Facility: [facility] Address: [address] [address] Performed By: #### 2 4323-8 ####VTALIREZA SAUCEDA [facility] LABCLIA [id number] [address] ALP [Catalytic activity/Vol] 75 U/L Normal 34-104 [facility] Comment on above: Order Comment: Speci men Type: BLOOD SPECIMENOrdering Facility: [facility] Address: [address] [address] Performed By: #### 2 4323-8 ####PERRY Verafin GREEN LABCLIA [id number] [address] [place] [facility] ALT [Catalytic activity/Vol] 27 U/L Normal 7-52 [facility] Comment on above: Order Comment: Speci men Type: BLOOD SPECIMENOrdering Facility: [facility] Address: [address] [place] [address] Performed By: #### 2 4323-8 ####PEG YANG LABCLIA [id number] [place] [address] [place] Anion gap [Moles/Vol] 5 mmol/L Low 9-18 [facility] Comment on above: Order Comment: Speci men Type: BLOOD SPECIMENOrdering Facility: [facility] Address: [address] [place] [address] Performed By: #### 2 4323-8 ####[facility] LABCLIA [id number] [place] [address] [place] AST [Catalytic activity/Vol] 24 U/L Normal 13-39 [facility] Comment on above: Order Comment: Speci men Type: BLOOD SPECIMENOrdering Facility: [facility] Address: [address] [place] [address] Performed By: #### 2 4323-8 ####[facility] LABCLIA [id number] [place] [address] [place] Bilirubin [Mass/Vol] 0.8 mg/dL Normal 0.3-1.0 [facility] Comment on above: Order Comment: Speci men Type: BLOOD SPECIMENOrdering Facility: [facility] Address: [address] [place] [address] Result Comment: Use of this assay is not recommended for patients undergoing treatment with eltrombopag due to the potential for falsely elevated results. Performed By: #### 2 4323-8 ####[facility] LABCLIA [id number] [place] [address] [place] Calcium [Mass/Vol] 8.6 mg/dL Normal 8.6-10.3 [facility] Comment on above: Order Comment: Speci men Type: BLOOD SPECIMENOrdering Facility: [facility] Address: [address] [address] Performed By: #### 2 4323-8 ####VTALIREZA SAUCEDA [facility] LABCLIA [id number] [place] [address] [place] [facility] Chloride [Moles/Vol] 104 mmol/L Normal 101-111 [facility] Comment on above: Order Comment: Speci men Type: BLOOD SPECIMENOrdering Facility: [facility] Address: [address] [address] Performed By: #### 2 4323-8 ####PEG [facility] LABCLIA [id number] [place] [address] [place] [facility] CO2 [Moles/Vol] 31 mmol/L Normal 21-31 [facility] Comment on above: Order Comment: Speci men Type: BLOOD SPECIMENOrdering Facility: [facility] Address: [address] [place] [address] Performed By: #### 2 4323-8 ####VTALIREZA [facility] LABCLIA [id number] [place] [address] [place] [facility] Creatinine [Mass/Vol] 1.01 mg/dL Normal 0.60-1.30 [facility] Comment on above: Order Comment: Speci men Type: BLOOD SPECIMENOrdering Facility: [facility] Address: [address] [place] [address] Result Comment: Use of this assay is not recommended for patients undergoing treatment with phenindione, due to the potential for falsely depressed results. Performed By: #### 2 4323-8 ####[facility] LABCLIA [id number] [place] [address] [facility] [place] [facility] ESTIMATED GLOMERULAR FILTRATION RATE 72 mL/min/1.73m??? Normal >=60 [facility] Comment on above: Order Comment: Speci men Type: BLOOD SPECIMENOrdering Facility: [facility] Address: [address] [place] [address] Result Comment: Concepción mated Glomerular Filtration Rate [...] actual GFR. Performed By: #### 2 4323-8 ####[facility] LABIA [id number] [place] [address] [place] Glucose [Mass/Vol] 126 mg/dL High 74-99 [facility] Comment on above: Order Comment: Elfego gilbert Type: BLOOD SPECIMENOrdering Facility: [facility] Address: [address] [place] [address] Result Comment: The [place] Diabetes Association (ADA) provides guidance for cutoff [...] Standards of Medical Care in Diabetes 2016, [place] Diabetes Association. Diabetes Care. 2016.39(Suppl 1). Performed By: #### 2 4323-8 ####VTALIREZA [facility] LABCLIA [id number] [place] [address] [place] Potassium [Moles/Vol] 4.0 mmol/L Normal 3.6-5.1 [facility] Comment on above: Order Comment: Elfego gilbert Type: BLOOD SPECIMENOrdering Facility: [facility] Address: [address] [place], [place] [id number] Performed By: #### 2 4323-8 ####VTALIREZA CHARMS [facility] LABCLIA [id number] [place] [address] [place] Protein [Mass/Vol] 5.6 g/dL Low 6.4-8.9 [facility] Comment on above: Order Comment: Speci men Type: BLOOD SPECIMENOrdering Facility: [facility] Address: [address] [place] [address] Performed By: #### 2 4323-8 ####PEG YANG LABCLIA [id number] [place] [address] [place] Sodium [Moles/Vol] 140 mmol/L Normal 136-144 [facility] Comment on above: Order Comment: Speci men Type: BLOOD SPECIMENOrdering Facility: [facility] Address: [address] [place] [address] Performed By: #### 2 4323-8 ####PEG YANG LABCLIA [id number] [address] [place] Urea nitrogen [Mass/Vol] 26 mg/dL High 7-25 [facility] Comment on above: Order Comment: Speci men Type: BLOOD SPECIMENOrdering Facility: [facility] Address: [address] [place] [address] Performed By: #### 2 4323-8 ####PEG YANG LABCLIA [id number] [place] [address] [place] Albumin [Mass/Vol] 3.5 g/dL 3.5 - 5.7 g/dL [facility] ALP [Catalytic activity/Vol] 75 U/L 34 - 104 U/L [facility] ALT [Catalytic activity/Vol] 27 U/L 7 - 52 U/L [facility] Anion gap [Moles/Vol] 5 mmol/L Low 9 - 18 mmol/L [facility] AST [Catalytic activity/Vol] 24 U/L 13 - 39 U/L [facility] Bilirubin [Mass/Vol] 0.8 mg/dL 0.3 - 1 .0 mg/dL [facility] Calcium [Mass/Vol] 8.6 mg/dL 8.6 - 10. 3 mg/dL [facility] Chloride [Moles/Vol] 104 mmol/L 101 - 1 11 mmol/L [facility] CO2 [Moles/Vol] 31 mmol/L 21 - 31 mmol/L [facility] Creatinine [Mass/Vol] 1.01 mg/dL 0.60 - 1.30 mg/dL [facility] Estimated Glomerular Filtration Rate 72 mL/min/1.73m >=60 mL/min/1.7 3m [facility] Glucose [Mass/Vol] 126 mg/dL High 74 - 99 mg/dL [facility] Potassium [Moles/Vol] 4.0 mmol/L 3.6 - 5.1 mmol/L [facility] Protein [Mass/Vol] 5.6 g/dL Low 6.4 - 8.9 g/dL [facility] Sodium [Moles/Vol] 140 mmol/L 136 - 144 mmol/L [facility] Urea nitrogen [Mass/Vol] 26 mg/dL High 7 - 25 mg/dL [facility] CBC W Auto Differential pane l (Bld)on 02-09-2023 Basophils (Bld) [#/Vol] 0.21 10*3/uL High <0.11 [facility] Comment on above: Order Comment: Speci men Type: BLOOD SPECIMENOrdering Facility: [facility] Address: [address] [address] Performed By: #### 5 7021-8 ####[employer] GREEN LABCLIA [id number] [place] [address] [place] Basophils/100 WBC (Bld) 5.8 % Normal [facility] Comment on above: Order Comment: Speci men Type: BLOOD SPECIMENOrdering Facility: [facility] Address: [address] [address] Performed By: #### 5 7021-8 ####[employer] GREEN LABCLIA [id number] [place] [address] [place] Differential cell count method Nom (Bld) Auto Normal [facility] Comment on above: Order Comment: Speci men Type: BLOOD SPECIMENOrdering Facility: [facility] Address: [address] [address] Performed By: #### 5 7021-8 ####[facility] LABCLIA [id number] [place] [address] [place] Eosinophils (Bld) [#/Vol] 0.07 10*3/uL Normal <0.46 [facility] Comment on above: Order Comment: Speci men Type: BLOOD SPECIMENOrdering Facility: [facility] Address: [address] [place] [address] Performed By: #### 5 7021-8 ####PEG SAUCEDA GREEN LABCLIA [id number] [place] [address] [facility] Eosinophils/100 WBC (Bld) 1.9 % Normal [facility] Comment on above: Order Comment: Speci men Type: BLOOD SPECIMENOrdering Facility: [facility] Address: [address] [place] [address] Performed By: #### 5 7021-8 ####PEG YANG LABCLIA [id number] [place] [address] [place] Erythrocyte distribution width (RBC) [Ratio] 19.0 % High 11.5-15.0 [facility] Comment on above: Order Comment: Speci men Type: BLOOD SPECIMENOrdering Facility: [facility] Address: [address] [place] [address] Performed By: #### 5 7021-8 ####PEG YANG LABCLIA [id number] [place] [address] [facility] [place] Hematocrit (Bld) [Volume fraction] 27.5 % Low 39.0-51.0 [facility] Comment on above: Order Comment: Speci men Type: BLOOD SPECIMENOrdering Facility: [facility] Address: [address] [place] [address] Performed By: #### 5 7021-8 ####PEG SAUCEDA GREEN LABCLIA [id number] [place] [address] [facility] [place] Hemoglobin (Bld) [Mass/Vol] 8.6 g/dL Low 13.0-17.0 [facility] Comment on above: Order Comment: Speci men Type: BLOOD SPECIMENOrdering Facility: [facility] Address: [address] [address] Performed By: #### 5 7021-8 ####[facility] LABCLIA [id number] [place] [address] [place] Immature granulocytes (Bld) [#/Vol] 10*3/uL Normal <0.10 [facility] Comment on above: Order Comment: Speci men Type: BLOOD SPECIMENOrdering Facility: [facility] Address: [address] [address] Performed By: #### 5 7021-8 ####AKALIREZA [facility]AL GREEN LABCLIA [id number] [address] [place] Immature granulocytes/100 WBC (Bld) 0.3 % Normal [facility] Comment on above: Order Comment: Speci men Type: BLOOD SPECIMENOrdering Facility: [facility] Address: [address] [address] Performed By: #### 5 7021-8 ####PEG [facility] GREEN LABCLIA [id number] [place] [address] [place] Lymphocytes (Bld) [#/Vol] 0.90 10*3/uL Low 1.00-4.00 [facility] Comment on above: Order Comment: Speci men Type: BLOOD SPECIMENOrdering Facility: [facility] Address: [address] [address] Performed By: #### 5 7021-8 ####[facility] LABCLIA [id number] [place] [address] [place] Lymphocytes/100 WBC (Bld) 24.9 % Normal [facility] Comment on above: Order Comment: Speci men Type: BLOOD SPECIMENOrdering Facility: [facility] Address: [address] [place] [address] Performed By: #### 5 7021-8 ####[facility] LABCLIA [id number] [address] [place] MCH (RBC) [Entitic mass] 36.0 pg High 26.0-34.0 [facility] Comment on above: Order Comment: Speci men Type: BLOOD SPECIMENOrdering Facility: [facility] Address: [address] [place] [address] Performed By: #### 5 7021-8 ####PEG YANG LABCLIA [id number] [place] [address] [facility] [place] MCHC (RBC) [Mass/Vol] 31.3 g/dL Normal 30.5-36.0 [facility] Comment on above: Order Comment: Speci men Type: BLOOD SPECIMENOrdering Facility: [facility] Address: [address] [place] [address] Performed By: #### 5 7021-8 ####[facility] LABCLIA [id number] [address] [place] MCV (RBC) [Entitic vol] 115.1 fL High 80.0-100.0 [facility] Comment on above: Order Comment: Speci men Type: BLOOD SPECIMENOrdering Facility: [facility] Address: [address] [place] [address] Performed By: #### 5 7021-8 ####VTALIREZA [facility] LABCLIA [id number] [place] [address] [place] Monocytes (Bld) [#/Vol] 0.17 10*3/uL Normal <0.87 [facility] Comment on above: Order Comment: Speci men Type: BLOOD SPECIMENOrdering Facility: [facility] Address: [address] [place] [address] Performed By: #### 5 7021-8 ####[facility] LABCLIA [id number] [place] [address] [facility] [place] Monocytes/100 WBC (Bld) 4.7 % Normal [facility] Comment on above: Order Comment: Speci men Type: BLOOD SPECIMENOrdering Facility: [facility] Address: [address] [address] Performed By: #### 5 7021-8 ####PEG SAUCEDA GREEN LABCLIA [id number] [place] [address] [place] Neutrophils (Bld) [#/Vol] 2.26 10*3/uL Normal 1.45-7.50 [facility] Comment on above: Order Comment: Speci men Type: BLOOD SPECIMENOrdering Facility: [facility] Address: [address] [place] [address] Performed By: #### 5 7021-8 ####PEG SAUCEDA GREEN LABCLIA [id number] [place] [address] [place] Neutrophils/100 WBC (Bld) 62.4 % Normal [facility] Comment on above: Order Comment: Speci men Type: BLOOD SPECIMENOrdering Facility: [facility] Address: [address] [place] [address] Performed By: #### 5 7021-8 ####PEG SAUCEDA GREEN LABCLIA [id number] [place] [address] [place] Nucleated RBC (Bld) [#/Vol] Normal [facility] Comment on above: Order Comment: Speci men Type: BLOOD SPECIMENOrdering Facility: [facility] Address: [address] [place] [address] Performed By: #### 5 7021-8 ####[facility] LABCLIA [id number] [place] [address] [place] Nucleated RBC/100 WBC (Bld) [Ratio] Normal [facility] Comment on above: Order Comment: Speci men Type: BLOOD SPECIMENOrdering Facility: [facility] Address: [address] [place] [address] Performed By: #### 5 7021-8 ####[facility] LABCLIA [id number] [place] [address] [place] Platelet mean volume (Bld) [Entitic vol] 11.2 fL Normal 9.0-12.7 [facility] Comment on above: Order Comment: Speci men Type: BLOOD SPECIMENOrdering Facility: [facility] Address: [address] [place] [address] Performed By: #### 5 7021-8 ####PEG SAUCEDA [facility] LABCLIA [id number] [place] [address] [facility] [place] Platelets (Bld) [#/Vol] 289 10*3/uL Normal 150-400 [facility] Comment on above: Order Comment: Speci men Type: BLOOD SPECIMENOrdering Facility: [facility] Address: [address] [place] [address] Performed By: #### 5 7021-8 ####VTALIREZA SAUCEDA [facility] LABCLIA [id number] [place] [address] [place] RBC (Bld) [#/Vol] 2.39 10*6/uL Low 4.20-6.00 [facility] Comment on above: Order Comment: Speci men Type: BLOOD SPECIMENOrdering Facility: [facility] Address: [address] [place] [address] Performed By: #### 5 7021-8 ####VTALIREZA SAUCEDA [facility] LABCLIA [id number] [place] [address] [place] WBC (Bld) [#/Vol] 3.62 10*3/uL Low 3.70-11.00 [facility] Comment on above: Order Comment: Speci men Type: BLOOD SPECIMENOrdering Facility: [facility] Address: [address] [place] [address] Performed By: #### 5 7021-8 ####PEG SAUCEDA [facility] LABCLIA [id number] [place] [address] [place] Basophils (Bld) [#/Vol] 0.21 10*3/uL High <0.11 k/uL [facility] Basophils/100 WBC (Bld) 5.8 % [facility] Differential cell count method Nom (Bld) Auto [facility] Eosinophils (Bld) [#/Vol] 0.07 10*3/uL <0.46 k/uL [facility] Eosinophils/100 WBC (Bld) 1.9 % [facility] Erythrocyte distribution width (RBC) [Ratio] 19.0 % High 11.5 - 15.0 % [facility] Hematocrit (Bld) [Volume fraction] 27.5 % Low 39.0 - 51.0 % [facility] Hemoglobin (Bld) [Mass/Vol] 8.6 g/dL Low 13.0 - 17.0 g/dL [facility] Immature granulocytes (Bld) [#/Vol] <0.10 k/uL [facility] Immature granulocytes/100 WBC (Bld) 0.3 % [facility] Lymphocytes (Bld) [#/Vol] 0.90 10*3/uL Low 1.00 - 4.00 k/uL [facility] Lymphocytes/100 WBC (Bld) 24.9 % [facility] MCH (RBC) [Entitic mass] 36.0 pg High 26.0 - 34.0 pg [facility] MCHC (RBC) [Mass/Vol] 31.3 g/dL 30.5 - 36.0 g/dL [facility] MCV (RBC) [Entitic vol] 115.1 fL High 80.0 - 100.0 fL [facility] Monocytes (Bld) [#/Vol] 0.17 10*3/uL <0.87 k/uL [facility] Monocytes/100 WBC (Bld) 4.7 % [facility] Neutrophils (Bld) [#/Vol] 2.26 10*3/uL 1.45 - 7.50 k/uL [facility] Neutrophils/100 WBC (Bld) 62.4 % [facility] Nucleated RBC (Bld) [#/Vol] [facility] Nucleated RBC/100 WBC (Bld) [Ratio] [facility] Platelet mean volume (Bld) [Entitic vol] 11.2 fL 9.0 - 12.7 fL [facility] Platelets (Bld) [#/Vol] 289 10*3/uL 150 - 400 k/uL [facility] RBC (Bld) [#/Vol] 2.39 10*6/uL Low 4.20 - 6.00 m/uL [facility] WBC (Bld) [#/Vol] 3.62 10*3/uL Low 3.70 - 11.00 k/uL [facility] Comprehensive metabolic 2000 panelon 02-09-2023 Albumin [Mass/Vol] 3.5 g/dL Normal 3.5-5.7 [facility] Comment on above: Order Comment: Speci men Type: BLOOD SPECIMENOrdering Facility: [facility] Address: [address] [place] [address] Performed By: #### 2 4323-8 ####[employer] LABCLIA [id number] [address] ALP [Catalytic activity/Vol] 58 U/L Normal 34-104 [facility] Comment on above: Order Comment: Speci men Type: BLOOD SPECIMENOrdering Facility: [facility] Address: [address] [place] [address] Performed By: #### 2 4323-8 ####[facility] LABCLIA [id number] [address] ALT [Catalytic activity/Vol] 22 U/L Normal 7-52 [facility] Comment on above: Order Comment: Speci men Type: BLOOD SPECIMENOrdering Facility: [facility] Address: [address] [place] [address] Performed By: #### 2 4323-8 ####[employer] LABCLIA [id number] [place] [id number] [facility] Anion gap [Moles/Vol] 3 mmol/L Low 9-18 [facility] Comment on above: Order Comment: Speci men Type: BLOOD SPECIMENOrdering Facility: [facility] Address: [address] [place] [address] Performed By: #### 2 4323-8 ####[facility] [facility] LABCLIA [id number] [place] [address] [place] AST [Catalytic activity/Vol] 21 U/L Normal 13-39 [facility] Comment on above: Order Comment: Speci men Type: BLOOD SPECIMENOrdering Facility: [facility] Address: [address] [place] [address] Performed By: #### 2 4323-8 ####PEG SAUCEDA GREEN LABCLIA [id number] [place] [address] [place] Bilirubin [Mass/Vol] 1.0 mg/dL Normal 0.3-1.0 [facility] Comment on above: Order Comment: Speci men Type: BLOOD SPECIMENOrdering Facility: [facility] Address: [address] [place] [address] Result Comment: Use of this assay is not recommended for patients undergoing treatment with eltrombopag due to the potential for falsely elevated results. Performed By: #### 2 4323-8 ####BELLOALIREZA SAUCEDA GREEN LABCLIA [id number] [place] [address] [place] Calcium [Mass/Vol] 8.6 mg/dL Normal 8.6-10.3 [facility] Comment on above: Order Comment: Speci men Type: BLOOD SPECIMENOrdering Facility: [facility] Address: [address] [place] [address] Performed By: #### 2 4323-8 ####VTALIREZA SAUCEDA GREEN LABCLIA [id number] [place] [address] [place] Chloride [Moles/Vol] 103 mmol/L Normal 101-111 [facility] Comment on above: Order Comment: Speci men Type: BLOOD SPECIMENOrdering Facility: [facility] Address: [address] [place] [address] Performed By: #### 2 4323-8 ####VTALIREZA SAUCEDA GREEN LABCLIA [id number] [place] [address] [place] CO2 [Moles/Vol] 30 mmol/L Normal 21-31 [facility] Comment on above: Order Comment: Speci men Type: BLOOD SPECIMENOrdering Facility: [facility] Address: [address] [address] Performed By: #### 2 4323-8 ####PEG YANG LABCLIA [id number] [place] [address] [place] Creatinine [Mass/Vol] 1.04 mg/dL Normal 0.60-1.30 [facility] Comment on above: Order Comment: Speci men Type: BLOOD SPECIMENOrdering Facility: [facility] Address: [address] [address] Result Comment: Use of this assay is not recommended for patients undergoing treatment with phenindione, due to the potential for falsely depressed results. Performed By: #### 2 4323-8 ####PEG SAUCEDA ANOKA LABCLIA [id number] [address] [place] [facility] ESTIMATED GLOMERULAR FILTRATION RATE 69 mL/min/1.73m??? Normal >=60 [facility] Comment on above: Order Comment: Speci vladimir Type: BLOOD SPECIMENOrdering Facility: [facility] Address: [address] [address] Result Comment: Concepción mated Glomerular Filtration Rate [...] Performed By: #### 2 4323-8 ####PEG SAUCEDA [facility] LABIA [id number] [place] [address] [place] Glucose [Mass/Vol] 160 mg/dL High 74-99 [facility] Comment on above: Order Comment: Speci vladimir Type: BLOOD SPECIMENOrdering Facility: [facility] Address: [address] [place] [address] Result Comment: The [place] Diabetes Association (ADA) provides guidance for cutoff [...] Standards of Medical Care in Diabetes 2016, [place] Diabetes Association. Diabetes Care. 2016.39(Suppl 1). Performed By: #### 2 4323-8 ####[employer] LABCLIA [id number] [place] [address] [place] Potassium [Moles/Vol] 4.0 mmol/L Normal 3.6-5.1 [facility] Comment on above: Order Comment: Speci men Type: BLOOD SPECIMENOrdering Facility: [facility] Address: [address] [place] [address] Performed By: #### 2 4323-8 ####[facility] LABIA [id number] [place] [address] [place] Protein [Mass/Vol] 5.4 g/dL Low 6.4-8.9 [facility] Comment on above: Order Comment: Speci men Type: BLOOD SPECIMENOrdering Facility: [facility] Address: [address] [place] [address] Performed By: #### 2 4323-8 ####[facility] LABCLIA [id number] [place] [address] [place] Sodium [Moles/Vol] 136 mmol/L Normal 136-144 [facility] Comment on above: Order Comment: Speci men Type: BLOOD SPECIMENOrdering Facility: [facility] Address: [address] [place] [address] Performed By: #### 2 4323-8 ####[employer] LABCLIA [id number] [place] [address] [place] Urea nitrogen [Mass/Vol] 23 mg/dL Normal 7-25 [facility] Comment on above: Order Comment: Speci men Type: BLOOD SPECIMENOrdering Facility: [facility] Address: [place] [address] Performed By: #### 2 4323-8 ####[facility] LABCLIA [id number] [place] [address] [place] Albumin [Mass/Vol] 3.5 g/dL 3.5 - 5.7 g/dL [facility] ALP [Catalytic activity/Vol] 58 U/L 34 - 104 U/L [facility] ALT [Catalytic activity/Vol] 22 U/L 7 - 52 U/L [facility] Anion gap [Moles/Vol] 3 mmol/L Low 9 - 18 mmol/L [facility] AST [Catalytic activity/Vol] 21 U/L 13 - 39 U/L [facility] Bilirubin [Mass/Vol] 1.0 mg/dL 0.3 - 1 .0 mg/dL [facility] Calcium [Mass/Vol] 8.6 mg/dL 8.6 - 10. 3 mg/dL [facility] Chloride [Moles/Vol] 103 mmol/L 101 - 1 11 mmol/L [facility] CO2 [Moles/Vol] 30 mmol/L 21 - 31 mmol/L [facility] Creatinine [Mass/Vol] 1.04 mg/dL 0.60 - 1.30 mg/dL [facility] Estimated Glomerular Filtration Rate 69 mL/min/1.73m >=60 mL/min/1.7 3m [facility] Glucose [Mass/Vol] 160 mg/dL High 74 - 99 mg/dL [facility] Potassium [Moles/Vol] 4.0 mmol/L 3.6 - 5.1 mmol/L [facility] Protein [Mass/Vol] 5.4 g/dL Low 6.4 - 8.9 g/dL [facility] Sodium [Moles/Vol] 136 mmol/L 136 - 144 mmol/L [facility] Urea nitrogen [Mass/Vol] 23 mg/dL 7 - 25 mg/dL [facility] CBC W Auto Differential pane l (Bld)on 02-04-2023 Basophils (Bld) [#/Vol] 0.07 10*3/uL Normal <0.11 [facility] Comment on above: Order Comment: Speci men Type: BLOOD SPECIMENOrdering Facility: [facility] Address: [address] [place] [address] Performed By: #### 5 7021-8 ####[facility] LABCLIA [id number] [place] [address] [place] Basophils/100 WBC (Bld) 2.7 % Normal [facility] Comment on above: Order Comment: Speci men Type: BLOOD SPECIMENOrdering Facility: [facility] Address: [address] [place] [address] Performed By: #### 5 7021-8 ####[facility] LABCLIA [id number] [place] [address] [place] Differential cell count method Nom (Bld) Auto Normal [facility] Comment on above: Order Comment: Speci men Type: BLOOD SPECIMENOrdering Facility: [facility] Address: [address] [place] [address] Performed By: #### 5 7021-8 ####[facility] LABCLIA [id number] [place] [address] [place] Eosinophils (Bld) [#/Vol] 0.05 10*3/uL Normal <0.46 [facility] Comment on above: Order Comment: Speci men Type: BLOOD SPECIMENOrdering Facility: [facility] Address: [address] [place] [address] Performed By: #### 5 7021-8 ####[facility] LABCLIA [id number] [address] [place] Eosinophils/100 WBC (Bld) 2.0 % Normal [facility] Comment on above: Order Comment: Speci men Type: BLOOD SPECIMENOrdering Facility: [facility] Address: [address] [place] [address] Performed By: #### 5 7021-8 ####PEG SAUCEDA GREEN LABCLIA [id number] [place] [address] [place] Erythrocyte distribution width (RBC) [Ratio] 19.4 % High 11.5-15.0 [facility] Comment on above: Order Comment: Speci men Type: BLOOD SPECIMENOrdering Facility: [facility] Address: [address] [place] [address] Performed By: #### 5 7021-8 ####PEG YANG LABCLIA [id number] [place] [address] [place] Hematocrit (Bld) [Volume fraction] 28.7 % Low 39.0-51.0 [facility] Comment on above: Order Comment: Speci men Type: BLOOD SPECIMENOrdering Facility: [facility] Address: [address] [place] [address] Performed By: #### 5 7021-8 ####[facility] LABCLIA [id number] [address] [place] Hemoglobin (Bld) [Mass/Vol] 9.2 g/dL Low 13.0-17.0 [facility] Comment on above: Order Comment: Speci men Type: BLOOD SPECIMENOrdering Facility: [facility] Address: [address] [place] [address] Performed By: #### 5 7021-8 ####VTALIREZA SAUCEDA [facility] LABCLIA [id number] [place] [address] [place] Immature granulocytes (Bld) [#/Vol] 10*3/uL Normal <0.10 [facility] Comment on above: Order Comment: Speci men Type: BLOOD SPECIMENOrdering Facility: [facility] Address: [address] [place] [address] Performed By: #### 5 7021-8 ####PERRY [facility] LABCLIA [id number] [place] [address] [place] Immature granulocytes/100 WBC (Bld) 0.4 % Normal [facility] Comment on above: Order Comment: Speci men Type: BLOOD SPECIMENOrdering Facility: [facility] Address: [address] [place] [address] Performed By: #### 5 7021-8 ####VTALIREZA SAUCEDA GREEN LABCLIA [id number] [place] [address] [place] Lymphocytes (Bld) [#/Vol] 0.90 10*3/uL Low 1.00-4.00 [facility] Comment on above: Order Comment: Speci men Type: BLOOD SPECIMENOrdering Facility: [facility] Address: [address] [place] [address] Performed By: #### 5 7021-8 ####[facility] LABCLIA [id number] [address] [place] Lymphocytes/100 WBC (Bld) 35.3 % Normal [facility] Comment on above: Order Comment: Speci men Type: BLOOD SPECIMENOrdering Facility: [facility] Address: [address] [place] [address] Performed By: #### 5 7021-8 ####BELLOALIREZA [facility] LABCLIA [id number] [place] [address] [place] MCH (RBC) [Entitic mass] 37.9 pg High 26.0-34.0 [facility] Comment on above: Order Comment: Speci men Type: BLOOD SPECIMENOrdering Facility: [facility] Address: [address] [place] [address] Performed By: #### 5 7021-8 ####[facility] LABCLIA [id number] [place] [address] [place] MCHC (RBC) [Mass/Vol] 32.1 g/dL Normal 30.5-36.0 [facility] Comment on above: Order Comment: Speci men Type: BLOOD SPECIMENOrdering Facility: [facility] Address: [address] [place] [address] Performed By: #### 5 7021-8 ####PEG SAUCEDA [facility] LABCLIA [id number] [place] [address] [place] MCV (RBC) [Entitic vol] 118.1 fL High 80.0-100.0 [facility] Comment on above: Order Comment: Speci men Type: BLOOD SPECIMENOrdering Facility: [facility] Address: [address] [place] [address] Performed By: #### 5 7021-8 ####[facility] LABCLIA [id number] [place] [address] [place] Monocytes (Bld) [#/Vol] 0.19 10*3/uL Normal <0.87 [facility] Comment on above: Order Comment: Speci men Type: BLOOD SPECIMENOrdering Facility: [facility] Address: [address] [address] Performed By: #### 5 7021-8 ####[facility] LABCLIA [id number] [place] [address] [place] Monocytes/100 WBC (Bld) 7.5 % Normal [facility] Comment on above: Order Comment: Speci men Type: BLOOD SPECIMENOrdering Facility: [facility] Address: [address] [place] [address] Performed By: #### 5 7021-8 ####[facility] LABCLIA [id number] [place] [address] [place] Neutrophils (Bld) [#/Vol] 1.33 10*3/uL Low 1.45-7.50 [facility] Comment on above: Order Comment: Speci men Type: BLOOD SPECIMENOrdering Facility: [facility] Address: [address] [place] [address] Performed By: #### 5 7021-8 ####[facility] LABCLIA [id number] [place] [address] [place] Neutrophils/100 WBC (Bld) 52.1 % Normal [facility] Comment on above: Order Comment: Speci men Type: BLOOD SPECIMENOrdering Facility: [facility] Address: [address] [place] [address] Performed By: #### 5 7021-8 ####PEG SAUCEDA GREEN LABCLIA [id number] [place] [address] [place] Nucleated RBC (Bld) [#/Vol] Normal [facility] Comment on above: Order Comment: Speci men Type: BLOOD SPECIMENOrdering Facility: [facility] Address: [address] [place] [address] Performed By: #### 5 7021-8 ####PEG SAUCEDA GREEN LABCLIA [id number] [place] [address] [place] Nucleated RBC/100 WBC (Bld) [Ratio] Normal [facility] Comment on above: Order Comment: Speci men Type: BLOOD SPECIMENOrdering Facility: [facility] Address: [address] [place] [address] Performed By: #### 5 7021-8 ####PEG SAUCEDA GREEN LABCLIA [id number] [place] [address] [place] Platelet mean volume (Bld) [Entitic vol] 12.2 fL Normal 9.0-12.7 [facility] Comment on above: Order Comment: Speci men Type: BLOOD SPECIMENOrdering Facility: [facility] Address: [address] [place] [address] Performed By: #### 5 7021-8 ####VTALIREZA SAUCEDA GREEN LABCLIA [id number] [place] [address] [place] Platelets (Bld) [#/Vol] 173 10*3/uL Normal 150-400 [facility] Comment on above: Order Comment: Speci men Type: BLOOD SPECIMENOrdering Facility: [facility] Address: [address] [place] [address] Performed By: #### 5 7021-8 ####VTALIREZA YANG LABCLIA [id number] [place] [address] [place] RBC (Bld) [#/Vol] 2.43 10*6/uL Low 4.20-6.00 [facility] Comment on above: Order Comment: Speci men Type: BLOOD SPECIMENOrdering Facility: [facility] Address: [address] [place] [address] Performed By: #### 5 7021-8 ####[facility] LABCLIA [id number] [place] [address] [facility] WBC (Bld) [#/Vol] 2.55 10*3/uL Low 3.70-11.00 [facility] Comment on above: Order Comment: Speci men Type: BLOOD SPECIMENOrdering Facility: [facility] Address: [address] [place] [address] Performed By: #### 5 7021-8 ####[facility] LABCLIA [id number] [place] [address] [facility] CNOVSPon 02-04-2023 CNOVSP Normal [facility] Comprehensive metabolic 2000 panelon 02-04-2023 Albumin [Mass/Vol] 3.7 g/dL Normal 3.5-5.7 [facility] Comment on above: Order Comment: Speci men Type: BLOOD SPECIMENOrdering Facility: [facility] Address: [address] [place] [address] Performed By: #### 2 4323-8 ####[facility] LABCLIA [id number] [place] [address] [facility] ALP [Catalytic activity/Vol] 68 U/L Normal 34-104 [facility] Comment on above: Order Comment: Speci men Type: BLOOD SPECIMENOrdering Facility: [facility] Address: [address] [place] [address] Performed By: #### 2 4323-8 ####PEG SAUCEDA GREEN LABCLIA [id number] [place] [address] [place] ALT [Catalytic activity/Vol] 27 U/L Normal 7-52 [facility] Comment on above: Order Comment: Speci men Type: BLOOD SPECIMENOrdering Facility: [facility] Address: [address] [place] [address] Performed By: #### 2 4323-8 ####PEG [facility] LABCLIA [id number] [place] [address] [place] Anion gap [Moles/Vol] 6 mmol/L Low 9-18 [facility] Comment on above: Order Comment: Speci men Type: BLOOD SPECIMENOrdering Facility: [facility] Address: [address] [place] [address] Performed By: #### 2 4323-8 ####[facility] LABCLIA [id number] [address] AST [Catalytic activity/Vol] 22 U/L Normal 13-39 [facility] Comment on above: Order Comment: Speci men Type: BLOOD SPECIMENOrdering Facility: [facility] Address: [address] [place] [address] Performed By: #### 2 4323-8 ####[facility] LABCLIA [id number] [place] [address] [place] Bilirubin [Mass/Vol] 1.0 mg/dL Normal 0.3-1.0 [facility] Comment on above: Order Comment: Speci men Type: BLOOD SPECIMENOrdering Facility: [facility] Address: [address] [place] [address] Result Comment: Use of this assay is not recommended for patients undergoing treatment with eltrombopag due to the potential for falsely elevated results. Performed By: #### 2 4323-8 ####PERRY Verafin GREEN LABCLIA [id number] [place] [address] [place] [facility] Calcium [Mass/Vol] 8.7 mg/dL Normal 8.6-10.3 [facility] Comment on above: Order Comment: Speci men Type: BLOOD SPECIMENOrdering Facility: [facility] Address: [address] [place] [address] Performed By: #### 2 4323-8 ####[facility] LABCLIA [id number] [place] [address] [place] Chloride [Moles/Vol] 104 mmol/L Normal 101-111 [facility] Comment on above: Order Comment: Speci men Type: BLOOD SPECIMENOrdering Facility: [facility] Address: [address] [place] [address] Performed By: #### 2 4323-8 ####[facility] LABCLIA [id number] [address] [place] CO2 [Moles/Vol] 31 mmol/L Normal 21-31 [facility] Comment on above: Order Comment: Speci men Type: BLOOD SPECIMENOrdering Facility: [facility] Address: [address] [place] [address] Performed By: #### 2 4323-8 ####[facility] LABCLIA [id number] [place] [address] [place] Creatinine [Mass/Vol] 1.15 mg/dL Normal 0.60-1.30 [facility] Comment on above: Order Comment: Speci men Type: BLOOD SPECIMENOrdering Facility: [facility] Address: [address] [place] [address] Result Comment: Use of this assay is not recommended for patients undergoing treatment with phenindione, due to the potential for falsely depressed results. Performed By: #### 2 4323-8 ####[facility] LABCLIA [id number] [place] [address] [place] ESTIMATED GLOMERULAR FILTRATION RATE 62 mL/min/1.73m??? Normal >=60 [facility] Comment on above: Order Comment: Speci men Type: BLOOD SPECIMENOrdering Facility: [facility] Address: [place] [address] Result Comment: Concepción mated Glomerular Filtration [...] actual GFR. Performed By: #### 2 4323-8 ####[facility] [employer] SystemsIA [id number] [place] [address] [place] Glucose [Mass/Vol] 109 mg/dL High 74-99 [facility] Comment on above: Order Comment: Elfego gilbert Type: BLOOD SPECIMENOrdering Facility: [facility] Address: [address] [place] [address] Result Comment: The [place] Diabetes Association (ADA) provides guidance for cutoff [...] Standards of Medical Care in Diabetes 2016, [place] Diabetes Association. Diabetes Care. 2016.39(Suppl 1). Performed By: #### 2 4323-8 ####[facility] LABIA [id number] [place] [address] [place] Potassium [Moles/Vol] 4.4 mmol/L Normal 3.6-5.1 [facility] Comment on above: Order Comment: Elfego vladimir Type: BLOOD SPECIMENOrdering Facility: [facility] Address: [address] [address] Performed By: #### 2 4323-8 ####VTALIREZA SAUCEDA GREEN LABCLIA [id number] [place] [address] [place] Protein [Mass/Vol] 6.0 g/dL Low 6.4-8.9 [facility] Comment on above: Order Comment: Speci men Type: BLOOD SPECIMENOrdering Facility: [facility] Address: [address] [place] [address] Performed By: #### 2 4323-8 ####[facility] LABCLIA [id number] [place] [address] [place] Sodium [Moles/Vol] 141 mmol/L Normal 136-144 [facility] Comment on above: Order Comment: Speci men Type: BLOOD SPECIMENOrdering Facility: [facility] Address: [address] [place] [address] Performed By: #### 2 4323-8 ####[facility] LABCLIA [id number] [address] [place] Urea nitrogen [Mass/Vol] 23 mg/dL Normal 7-25 [facility] Comment on above: Order Comment: Speci men Type: BLOOD SPECIMENOrdering Facility: [facility] Address: [address] [place] [address] Performed By: #### 2 4323-8 ####[facility] LABCLIA [id number] [place] [address] [place] CNOVSPon 01-14-2023 CNOVSP Normal [facility] CBC W Auto Differential pane l (Bld)on 01-12-2023 Anisocytosis Ql (Bld) Present Normal [facility] Comment on above: Order Comment: Speci men Type: BLOOD SPECIMENOrdering Facility: [facility] Address: [address] [place] [address] Performed By: #### 5 7021-8 ####[facility] LABCLIA [id number] [place] [address] [place] Basophils (Bld) [#/Vol] 0.08 10*3/uL Normal <0.11 [facility] Comment on above: Order Comment: Speci men Type: BLOOD SPECIMENOrdering Facility: [facility] Address: [address] [place] [address] Performed By: #### 5 7021-8 ####AKAL[facility] LABCLIA [id number] [place] [address] [place] Basophils/100 WBC (Bld) 4.6 % Normal [facility] Comment on above: Order Comment: Speci men Type: BLOOD SPECIMENOrdering Facility: [facility] Address: [address] [place] [address] Performed By: #### 5 7021-8 ####BELLOALIREZA [facility] LABCLIA [id number] [address] [place] Differential cell count method Nom (Bld) Auto Normal [facility] Comment on above: Order Comment: Speci men Type: BLOOD SPECIMENOrdering Facility: [facility] Address: [address] [place] [address] Performed By: #### 5 7021-8 ####[facility] LABCLIA [id number] [place] [address] [place] Eosinophils (Bld) [#/Vol] 10*3/uL Normal <0.46 [facility] Comment on above: Order Comment: Speci men Type: BLOOD SPECIMENOrdering Facility: [facility] Address: [address] [place] [address] Performed By: #### 5 7021-8 ####[facility] LABCLIA [id number] [address] Eosinophils/100 WBC (Bld) 1.1 % Normal [facility] Comment on above: Order Comment: Speci men Type: BLOOD SPECIMENOrdering Facility: [facility] Address: [address] [place] [address] Performed By: #### 5 7021-8 ####PERRY [facility] LABCLIA [id number] [place] [address] [facility] Erythrocyte distribution width (RBC) [Ratio] 19.5 % High 11.5-15.0 [facility] Comment on above: Order Comment: Speci men Type: BLOOD SPECIMENOrdering Facility: [facility] Address: [address] [place] [address] Performed By: #### 5 7021-8 ####[facility] LABCLIA [id number] [place] [address] [place] Giant platelets LM Ql (Bld) Occasional Normal [facility] Comment on above: Order Comment: Speci men Type: BLOOD SPECIMENOrdering Facility: [facility] Address: [address] [place] [address] Performed By: #### 5 7021-8 ####[facility] LABCLIA [id number] [address] [place] Hematocrit (Bld) [Volume fraction] 24.2 % Low 39.0-51.0 [facility] Comment on above: Order Comment: Speci men Type: BLOOD SPECIMENOrdering Facility: [facility] Address: [address] [place] [address] Performed By: #### 5 7021-8 ####[facility] LABCLIA [id number] [place] [address] [place] Hemoglobin (Bld) [Mass/Vol] 7.8 g/dL Low 13.0-17.0 [facility] Comment on above: Order Comment: Speci men Type: BLOOD SPECIMENOrdering Facility: [facility] Address: [address] [place] [address] Performed By: #### 5 7021-8 ####[facility] LABCLIA [id number] [place] [address] [place] Immature granulocytes (Bld) [#/Vol] 10*3/uL Normal <0.10 [facility] Comment on above: Order Comment: Speci men Type: BLOOD SPECIMENOrdering Facility: [facility] Address: [address] [place] [address] Performed By: #### 5 7021-8 ####[facility] LABCLIA [id number] [place] [address] [place] Immature granulocytes/100 WBC (Bld) 0.0 % Normal [facility] Comment on above: Order Comment: Speci men Type: BLOOD SPECIMENOrdering Facility: [facility] Address: [address] [place] [address] Performed By: #### 5 7021-8 ####[facility] LABCLIA [id number] [place] [address] [place] Lymphocytes (Bld) [#/Vol] 0.65 10*3/uL Low 1.00-4.00 [facility] Comment on above: Order Comment: Speci men Type: BLOOD SPECIMENOrdering Facility: [facility] Address: [address] [place] [address] Performed By: #### 5 7021-8 ####[facility] LABCLIA [id number] [place] [address] [place] Lymphocytes/100 WBC (Bld) 37.4 % Normal [facility] Comment on above: Order Comment: Speci men Type: BLOOD SPECIMENOrdering Facility: [facility] Address: [address] [place] [address] Performed By: #### 5 7021-8 ####[facility] LABCLIA [id number] [place] [address] [place] MCH (RBC) [Entitic mass] 39.0 pg High 26.0-34.0 [facility] Comment on above: Order Comment: Speci men Type: BLOOD SPECIMENOrdering Facility: [facility] Address: [address] [place] [address] Performed By: #### 5 7021-8 ####VTALIREZA [facility] LABCLIA [id number] [place] [address] [place] MCHC (RBC) [Mass/Vol] 32.2 g/dL Normal 30.5-36.0 [facility] Comment on above: Order Comment: Speci men Type: BLOOD SPECIMENOrdering Facility: [facility] Address: [address] [place] [address] Performed By: #### 5 7021-8 ####VTALIREZA [facility] LABCLIA [id number] [place] [address] [place] MCV (RBC) [Entitic vol] 121.0 fL High 80.0-100.0 [facility] Comment on above: Order Comment: Speci men Type: BLOOD SPECIMENOrdering Facility: [facility] Address: [address] [place] [address] Performed By: #### 5 7021-8 ####[facility] LABCLIA [id number] [address] [place] Monocytes (Bld) [#/Vol] 0.14 10*3/uL Normal <0.87 [facility] Comment on above: Order Comment: Speci men Type: BLOOD SPECIMENOrdering Facility: [facility] Address: [address] [place] [address] Performed By: #### 5 7021-8 ####[facility] GRE[facility] LABCLIA [id number] [place] [address] [facility] Monocytes/100 WBC (Bld) 8.0 % Normal [facility] Comment on above: Order Comment: Speci men Type: BLOOD SPECIMENOrdering Facility: [facility] Address: [address] [place] [address] Performed By: #### 5 7021-8 ####[facility] GREEN LABCLIA [id number] [place] [address] [facility] [place] Neutrophils (Bld) [#/Vol] 0.85 10*3/uL Low 1.45-7.50 [facility] Comment on above: Order Comment: Speci men Type: BLOOD SPECIMENOrdering Facility: [facility] Address: [address] [place] [address] Performed By: #### 5 7021-8 ####[facility] GRE[facility] LABCLIA [id number] [place] [address] [place] Neutrophils/100 WBC (Bld) 48.9 % Normal [facility] Comment on above: Order Comment: Speci men Type: BLOOD SPECIMENOrdering Facility: [facility] Address: [address] [place] [address] Performed By: #### 5 7021-8 ####[facility] LABCLIA [id number] [place] [address] [place] Nucleated RBC (Bld) [#/Vol] Normal [facility] Comment on above: Order Comment: Speci men Type: BLOOD SPECIMENOrdering Facility: [facility] Address: [address] [place] [address] Performed By: #### 5 7021-8 ####[facility] GRE[facility] LABCLIA [id number] [place] [address] [place] Nucleated RBC/100 WBC (Bld) [Ratio] Normal [facility] Comment on above: Order Comment: Speci men Type: BLOOD SPECIMENOrdering Facility: [facility] Address: [address] [place] [address] Performed By: #### 5 7021-8 ####[facility] LABCLIA [id number] [place] [address] [place] Platelet mean volume (Bld) [Entitic vol] 10.3 fL Normal 9.0-12.7 [facility] Comment on above: Order Comment: Speci men Type: BLOOD SPECIMENOrdering Facility: [facility] Address: [address] [place] [address] Performed By: #### 5 7021-8 ####[facility] LABCLIA [id number] [place] [address] [place] Platelets (Bld) [#/Vol] 633 10*3/uL High 150-400 [facility] Comment on above: Order Comment: Speci men Type: BLOOD SPECIMENOrdering Facility: [facility] Address: [address] [place] [address] Performed By: #### 5 7021-8 ####[facility] LABCLIA [id number] [place] [address] [place] Platelets Estimate (Bld) [#/Vol] Increased Normal [facility] Comment on above: Order Comment: Speci men Type: BLOOD SPECIMENOrdering Facility: [facility] Address: [address] [place] [address] Performed By: #### 5 7021-8 ####VTALIREZA [facility] GRE[facility] LABCLIA [id number] [place] [address] [place] Polychromasia LM Ql (Bld) Slight Normal [facility] Comment on above: Order Comment: Speci men Type: BLOOD SPECIMENOrdering Facility: [facility] Address: [address] [place] [address] Performed By: #### 5 7021-8 ####VTALIREZA [facility] GRE[facility] LABCLIA [id number] [place] [address] [place] RBC (Bld) [#/Vol] 2.00 10*6/uL Low 4.20-6.00 [facility] Comment on above: Order Comment: Speci men Type: BLOOD SPECIMENOrdering Facility: [facility] Address: [address] [place] [address] Performed By: #### 5 7021-8 ####VTALIREZA [facility] GRE[facility] LABCLIA [id number] [place] [address] [place] RBC FRAGMENTS Few Abnormal None Seen [facility] Comment on above: Order Comment: Speci men Type: BLOOD SPECIMENOrdering Facility: [facility] Address: [address] [place] [address] Performed By: #### 5 7021-8 ####[facility] LABCLIA [id number] [place] [address] [place] RED CELL MORPH Reviewed: see result s of individual morphologies Normal [facility] Comment on above: Order Comment: Speci men Type: BLOOD SPECIMENOrdering Facility: [facility] Address: [address] [place] [address] Performed By: #### 5 7021-8 ####[facility] LABCLIA [id number] [place] [address] [place] WBC (Bld) [#/Vol] 1.74 10*3/uL Low 3.70-11.00 [facility] Comment on above: Order Comment: Speci men Type: BLOOD SPECIMENOrdering Facility: [facility] Address: [address] [place] [address] Performed By: #### 5 7021-8 ####VTALIREZA YANG LABCLIA [id number] [address] [place] Anisocytosis Ql (Bld) Present [facility] Basophils (Bld) [#/Vol] 0.08 10*3/uL <0.11 k/uL [facility] Basophils/100 WBC (Bld) 4.6 % [facility] Differential cell count method Nom (Bld) Auto [facility] Eosinophils (Bld) [#/Vol] <0.46 k/uL [facility] Eosinophils/100 WBC (Bld) 1.1 % [facility] Erythrocyte distribution width (RBC) [Ratio] 19.5 % High 11.5 - 15.0 % [facility] Giant platelets LM Ql (Bld) Occasional [facility] Hematocrit (Bld) [Volume fraction] 24.2 % Low 39.0 - 51.0 % [facility] Hemoglobin (Bld) [Mass/Vol] 7.8 g/dL Low 13.0 - 17.0 g/dL [facility] Immature granulocytes (Bld) [#/Vol] <0.10 k/uL [facility] Immature granulocytes/100 WBC (Bld) 0.0 % [facility] Lymphocytes (Bld) [#/Vol] 0.65 10*3/uL Low 1.00 - 4.00 k/uL [facility] Lymphocytes/100 WBC (Bld) 37.4 % [facility] MCH (RBC) [Entitic mass] 39.0 pg High 26.0 - 34.0 pg [facility] MCHC (RBC) [Mass/Vol] 32.2 g/dL 30.5 - 36.0 g/dL [facility] MCV (RBC) [Entitic vol] 121.0 fL High 80.0 - 100.0 fL [facility] Monocytes (Bld) [#/Vol] 0.14 10*3/uL <0.87 k/uL [facility] Monocytes/100 WBC (Bld) 8.0 % [facility] Neutrophils (Bld) [#/Vol] 0.85 10*3/uL Low 1.45 - 7.50 k/uL [facility] Neutrophils/100 WBC (Bld) 48.9 % [facility] Nucleated RBC (Bld) [#/Vol] [facility] Nucleated RBC/100 WBC (Bld) [Ratio] [facility] Platelet mean volume (Bld) [Entitic vol] 10.3 fL 9.0 - 12.7 fL [facility] Platelets (Bld) [#/Vol] 633 10*3/uL High 150 - 400 k/uL [facility] Platelets Estimate (Bld) [#/Vol] Increased [facility] Polychromasia LM Ql (Bld) Slight [facility] RBC (Bld) [#/Vol] 2.00 10*6/uL Low 4.20 - 6.00 m/uL [facility] RBC Fragments Few Abnormal None Seen [facility] Red Cell Morph Reviewed: see result s of individual morphologies [facility] WBC (Bld) [#/Vol] 1.74 10*3/uL Low 3.70 - 11.00 k/uL [facility] Comprehensive metabolic 2000 panelon 01-12-2023 Albumin [Mass/Vol] 3.6 g/dL Normal 3.5-5.7 [facility] Comment on above: Order Comment: Speci men Type: BLOOD SPECIMENOrdering Facility: [facility] Address: [address] [place] [address] Performed By: #### 2 4323-8 ####[facility] LABCLIA [id number] [place] [address] [place] ALP [Catalytic activity/Vol] 60 U/L Normal 34-104 [facility] Comment on above: Order Comment: Speci men Type: BLOOD SPECIMENOrdering Facility: [facility] Address: [address] [place] [address] Performed By: #### 2 4323-8 ####[facility] LABCLIA [id number] [address] [place] [facility] ALT [Catalytic activity/Vol] 19 U/L Normal 7-52 [facility] Comment on above: Order Comment: Speci men Type: BLOOD SPECIMENOrdering Facility: [facility] Address: [address] [place] [address] Performed By: #### 2 4323-8 ####[facility] GRE[facility] LABCLIA [id number] [address] [place] Anion gap [Moles/Vol] 2 mmol/L Low 9-18 [facility] Comment on above: Order Comment: Speci men Type: BLOOD SPECIMENOrdering Facility: [facility] Address: [address] [place] [address] Performed By: #### 2 4323-8 ####[facility] LABCLIA [id number] [address] [place] AST [Catalytic activity/Vol] 20 U/L Normal 13-39 [facility] Comment on above: Order Comment: Speci men Type: BLOOD SPECIMENOrdering Facility: [facility] Address: [address] [place] [address] Performed By: #### 2 4323-8 ####[facility] LABCLIA [id number] [place] [address] [place] Bilirubin [Mass/Vol] 0.9 mg/dL Normal 0.3-1.0 [facility] Comment on above: Order Comment: Speci men Type: BLOOD SPECIMENOrdering Facility: [facility] Address: [address] [place] [address] Result Comment: Use of this assay is not recommended for patients undergoing treatment with eltrombopag due to the potential for falsely elevated results. Performed By: #### 2 4323-8 ####[facility] Medical[facility]IREZA [facility] LABCLIA [id number] [place] [address] [place] Calcium [Mass/Vol] 8.5 mg/dL Low 8.6-10.3 [facility] Comment on above: Order Comment: Speci men Type: BLOOD SPECIMENOrdering Facility: [facility] Address: [address] [place] [address] Performed By: #### 2 4323-8 ####[facility] LABCLIA [id number] [place] [address] [place] Chloride [Moles/Vol] 103 mmol/L Normal 101-111 [facility] Comment on above: Order Comment: Speci men Type: BLOOD SPECIMENOrdering Facility: [facility] Address: [address] [place] [address] Performed By: #### 2 4323-8 ####[employer] LABCLIA [id number] [place] [address] [place] CO2 [Moles/Vol] 34 mmol/L High 21-31 [facility] Comment on above: Order Comment: Speci men Type: BLOOD SPECIMENOrdering Facility: [facility] Address: [address] [place] [address] Performed By: #### 2 4323-8 ####[employer] LABCLIA [id number] [place] [address] [place] Creatinine [Mass/Vol] 1.12 mg/dL Normal 0.60-1.30 [facility] Comment on above: Order Comment: Speci men Type: BLOOD SPECIMENOrdering Facility: [facility] Address: [place] [address] Result Comment: Use of this assay is not recommended for patients undergoing treatment with phenindione, due to the potential for falsely depressed results. Performed By: #### 2 4323-8 ####PEG YANG LABCLIA [id number] [place] [address] [place] ESTIMATED GLOMERULAR FILTRATION RATE 64 mL/min/1.73m??? Normal >=60 [facility] Comment on above: Order Comment: Elfego gilbert Type: BLOOD SPECIMENOrdering Facility: [facility] Address: [place] [address] Result Comment: Concepción mated Glomerular Filtration Rate [...] By: #### 2 4323-8 ####[facility] LABCLIA [id number] [place] [address] [place] Glucose [Mass/Vol] 131 mg/dL High 74-99 [facility] Comment on above: Order Comment: Elfego gilbert Type: BLOOD SPECIMENOrdering Facility: [facility] Address: [place] [address] Result Comment: The Citizen [place] Diabetes Association (ADA) provides guidance for cutoff [...] Standards of Medical Care in Diabetes 2016, Citizen Of [place] Diabetes Association. Diabetes Care. 2016.39(Suppl 1). Performed By: #### 2 4323-8 ####[facility] MedicalALIREZA [facility] LABCLIA [id number] [place] [address] [place] Potassium [Moles/Vol] 3.9 mmol/L Normal 3.6-5.1 [facility] Comment on above: Order Comment: Speci men Type: BLOOD SPECIMENOrdering Facility: [facility] Address: [address] [place] [address] Performed By: #### 2 4323-8 ####PERRY [facility] LABCLIA [id number] [place] [address] [place] Protein [Mass/Vol] 5.6 g/dL Low 6.4-8.9 [facility] Comment on above: Order Comment: Speci men Type: BLOOD SPECIMENOrdering Facility: [facility] Address: [address] [place] [address] Performed By: #### 2 4323-8 ####PERRY [facility] LABCLIA [id number] [place] [address] [place] Sodium [Moles/Vol] 139 mmol/L Normal 136-144 [facility] Comment on above: Order Comment: Speci men Type: BLOOD SPECIMENOrdering Facility: [facility] Address: [address] [place] [address] Performed By: #### 2 4323-8 ####PERRY [facility] LABCLIA [id number] [place] [address] [place] Urea nitrogen [Mass/Vol] 30 mg/dL High 7-25 [facility] Comment on above: Order Comment: Speci men Type: BLOOD SPECIMENOrdering Facility: [facility] Address: [address] [place] [address] Performed By: #### 2 4323-8 ####PERRY [facility] LABCLIA [id number] [place] [address] [facility] [place] [facility] Albumin [Mass/Vol] 3.6 g/dL 3.5 - 5.7 g/dL [facility] ALP [Catalytic activity/Vol] 60 U/L 34 - 104 U/L [facility] ALT [Catalytic activity/Vol] 19 U/L 7 - 52 U/L [facility] Anion gap [Moles/Vol] 2 mmol/L Low 9 - 18 mmol/L [facility] AST [Catalytic activity/Vol] 20 U/L 13 - 39 U/L [facility] Bilirubin [Mass/Vol] 0.9 mg/dL 0.3 - 1 .0 mg/dL [facility] Calcium [Mass/Vol] 8.5 mg/dL Low 8.6 - 10. 3 mg/dL [facility] Chloride [Moles/Vol] 103 mmol/L 101 - 1 11 mmol/L [facility] CO2 [Moles/Vol] 34 mmol/L High 21 - 31 mmol/L [facility] Creatinine [Mass/Vol] 1.12 mg/dL 0.60 - 1.30 mg/dL [facility] Estimated Glomerular Filtration Rate 64 mL/min/1.73m >=60 mL/min/1.7 3m [facility] Glucose [Mass/Vol] 131 mg/dL High 74 - 99 mg/dL [facility] Potassium [Moles/Vol] 3.9 mmol/L 3.6 - 5.1 mmol/L [facility] Protein [Mass/Vol] 5.6 g/dL Low 6.4 - 8.9 g/dL [facility] Sodium [Moles/Vol] 139 mmol/L 136 - 144 mmol/L [facility] Urea nitrogen [Mass/Vol] 30 mg/dL High 7 - 25 mg/dL [facility] CNOVSPon 2022 CNOVSP Normal [facility] CBC W Auto Differential pane l (Bld)on 12-15-2022 Basophils (Bld) [#/Vol] 0.06 10*3/uL Normal <0.11 [facility] Comment on above: Order Comment: Speci men Type: BLOOD SPECIMENOrdering Facility: [facility] Address: [address] [place] [id number] Performed By: #### 5 7021-8 ####[facility] LABCLIA [id number] [place] [address] [place] Basophils/100 WBC (Bld) 1.0 % Normal [facility] Comment on above: Order Comment: Speci men Type: BLOOD SPECIMENOrdering Facility: [facility] Address: [address] [place] [address] Performed By: #### 5 7021-8 ####PEG SAUCEDA GREEN LABCLIA [id number] [place] [address] [facility] Differential cell count method Nom (Bld) Auto Normal [facility] Comment on above: Order Comment: Speci men Type: BLOOD SPECIMENOrdering Facility: [facility] Address: [address] [place] [address] Performed By: #### 5 7021-8 ####BELLOALIREZA YANG LABCLIA [id number] [place] [address] [place] Eosinophils (Bld) [#/Vol] 0.14 10*3/uL Normal <0.46 [facility] Comment on above: Order Comment: Speci men Type: BLOOD SPECIMENOrdering Facility: [facility] Address: [address] [place] [address] Performed By: #### 5 7021-8 ####PEG YANG LABCLIA [id number] [place] [address] [facility] [place] Eosinophils/100 WBC (Bld) 2.4 % Normal [facility] Comment on above: Order Comment: Speci men Type: BLOOD SPECIMENOrdering Facility: [facility] Address: [address] [place] [address] Performed By: #### 5 7021-8 ####PEG SAUCEDA GREEN LABCLIA [id number] [place] [address] [facility] Erythrocyte distribution width (RBC) [Ratio] 18.4 % High 11.5-15.0 [facility] Comment on above: Order Comment: Speci men Type: BLOOD SPECIMENOrdering Facility: [facility] Address: [address] [place] [address] Performed By: #### 5 7021-8 ####PEG YANG LABCLIA [id number] [place] [address] [facility] [place] Hematocrit (Bld) [Volume fraction] 24.1 % Low 39.0-51.0 [facility] Comment on above: Order Comment: Speci men Type: BLOOD SPECIMENOrdering Facility: [facility] Address: [address] [place] [address] Performed By: #### 5 7021-8 ####PEG YANG LABCLIA [id number] [place] [address] [place] Hemoglobin (Bld) [Mass/Vol] 7.8 g/dL Low 13.0-17.0 [facility] Comment on above: Order Comment: Speci men Type: BLOOD SPECIMENOrdering Facility: [facility] Address: [address] [place] [address] Performed By: #### 5 7021-8 ####VTALIREZA [facility] LABCLIA [id number] [address] [place] Immature granulocytes (Bld) [#/Vol] 10*3/uL Normal <0.10 [facility] Comment on above: Order Comment: Speci men Type: BLOOD SPECIMENOrdering Facility: [facility] Address: [address] [place] [address] Performed By: #### 5 7021-8 ####VTALIREZA SAUCEDA GREEN LABCLIA [id number] [place] [address] [facility] [place] Immature granulocytes/100 WBC (Bld) 0.2 % Normal [facility] Comment on above: Order Comment: Speci men Type: BLOOD SPECIMENOrdering Facility: [facility] Address: [address] [place] [address] Performed By: #### 5 7021-8 ####PEG SAUCEDA GREEN LABCLIA [id number] [place] [address] [facility] [place] Lymphocytes (Bld) [#/Vol] 0.99 10*3/uL Low 1.00-4.00 [facility] Comment on above: Order Comment: Speci men Type: BLOOD SPECIMENOrdering Facility: [facility] Address: [address] [place] [address] Performed By: #### 5 7021-8 ####PEG SAUCEDA ANOKA LABCLIA [id number] [place] [id number] [facility] Lymphocytes/100 WBC (Bld) 17.0 % Normal [facility] Comment on above: Order Comment: Speci men Type: BLOOD SPECIMENOrdering Facility: [facility] Address: [address] [place] [address] Performed By: #### 5 7021-8 ####[facility] LABCLIA [id number] [place] [address] [place] MCH (RBC) [Entitic mass] 38.6 pg High 26.0-34.0 [place] [facility] Comment on above: Order Comment: Speci men Type: BLOOD SPECIMENOrdering Facility: [facility] Address: [address] [place] [address] Performed By: #### 5 7021-8 ####VTALIREZA SAUCEDA ANOKA LABCLIA [id number] [place] [address] [place] MCHC (RBC) [Mass/Vol] 32.4 g/dL Normal 30.5-36.0 [facility] Comment on above: Order Comment: Speci men Type: BLOOD SPECIMENOrdering Facility: [facility] Address: [address] [place] [address] Performed By: #### 5 7021-8 ####[facility] LABCLIA [id number] [place] [address] [place] MCV (RBC) [Entitic vol] 119.3 fL High 80.0-100.0 [facility] Comment on above: Order Comment: Speci men Type: BLOOD SPECIMENOrdering Facility: [facility] Address: [address] [place] [address] Performed By: #### 5 7021-8 ####[facility] LABCLIA [id number] [place] [address] [place] Monocytes (Bld) [#/Vol] 0.63 10*3/uL Normal <0.87 [facility] Comment on above: Order Comment: Speci men Type: BLOOD SPECIMENOrdering Facility: [facility] Address: [address] [place] [address] Performed By: #### 5 7021-8 ####[facility] LABCLIA [id number] [address] [place] Monocytes/100 WBC (Bld) 10.8 % Normal [facility] Comment on above: Order Comment: Speci men Type: BLOOD SPECIMENOrdering Facility: [facility] Address: [address] [place] [address] Performed By: #### 5 7021-8 ####[facility] LABCLIA [id number] [place] [address] [place] Neutrophils (Bld) [#/Vol] 3.99 10*3/uL Normal 1.45-7.50 [facility] Comment on above: Order Comment: Speci men Type: BLOOD SPECIMENOrdering Facility: [facility] Address: [address] [place] [address] Performed By: #### 5 7021-8 ####[facility] LABCLIA [id number] [place] [address] [place] Neutrophils/100 WBC (Bld) 68.6 % Normal [facility] Comment on above: Order Comment: Speci men Type: BLOOD SPECIMENOrdering Facility: [facility] Address: [address] [place] [address] Performed By: #### 5 7021-8 ####[facility] LABCLIA [id number] [place] [address] [place] Nucleated RBC (Bld) [#/Vol] Normal [facility] Comment on above: Order Comment: Speci men Type: BLOOD SPECIMENOrdering Facility: [facility] Address: [address] [place] [address] Performed By: #### 5 7021-8 ####PEG [facility] GREEN LABCLIA [id number] [place] [address] [place] Nucleated RBC/100 WBC (Bld) [Ratio] Normal [facility] Comment on above: Order Comment: Speci men Type: BLOOD SPECIMENOrdering Facility: [facility] Address: [address] [place] [address] Performed By: #### 5 7021-8 ####PEG YANG LABCLIA [id number] [place] [address] [place] Platelet mean volume (Bld) [Entitic vol] 10.9 fL Normal 9.0-12.7 [facility] Comment on above: Order Comment: Speci men Type: BLOOD SPECIMENOrdering Facility: [facility] Address: [address] [place] [address] Performed By: #### 5 7021-8 ####PEG YANG LABCLIA [id number] [place] [address] [place] Platelets (Bld) [#/Vol] 261 10*3/uL Normal 150-400 [facility] Comment on above: Order Comment: Speci men Type: BLOOD SPECIMENOrdering Facility: [facility] Address: [address] [place] [address] Performed By: #### 5 7021-8 ####[facility] LABCLIA [id number] [place] [address] [place] RBC (Bld) [#/Vol] 2.02 10*6/uL Low 4.20-6.00 [facility] Comment on above: Order Comment: Speci men Type: BLOOD SPECIMENOrdering Facility: [facility] Address: [address] [place] [address] Performed By: #### 5 7021-8 ####VTALIREZA YANG LABCLIA [id number] [place] [address] [place] WBC (Bld) [#/Vol] 5.82 10*3/uL Normal 3.70-11.00 [facility] Comment on above: Order Comment: Speci men Type: BLOOD SPECIMENOrdering Facility: [facility] Address: [address] [place] [address] Performed By: #### 5 7021-8 ####PEG YANG LABCLIA [id number] [place] [address] [place] Basophils (Bld) [#/Vol] 0.06 10*3/uL <0.11 k/uL [facility] Basophils/100 WBC (Bld) 1.0 % [facility] Differential cell count method Nom (Bld) Auto [facility] Eosinophils (Bld) [#/Vol] 0.14 10*3/uL <0.46 k/uL [facility] Eosinophils/100 WBC (Bld) 2.4 % [facility] Erythrocyte distribution width (RBC) [Ratio] 18.4 % High 11.5 - 15.0 % [facility] Hematocrit (Bld) [Volume fraction] 24.1 % Low 39.0 - 51.0 % [facility] Hemoglobin (Bld) [Mass/Vol] 7.8 g/dL Low 13.0 - 17.0 g/dL [facility] Immature granulocytes (Bld) [#/Vol] <0.10 k/uL [facility] Immature granulocytes/100 WBC (Bld) 0.2 % [facility] Lymphocytes (Bld) [#/Vol] 0.99 10*3/uL Low 1.00 - 4.00 k/uL [facility] Lymphocytes/100 WBC (Bld) 17.0 % [facility] MCH (RBC) [Entitic mass] 38.6 pg High 26.0 - 34.0 pg [facility] MCHC (RBC) [Mass/Vol] 32.4 g/dL 30.5 - 36.0 g/dL [facility] MCV (RBC) [Entitic vol] 119.3 fL High 80.0 - 100.0 fL [facility] Monocytes (Bld) [#/Vol] 0.63 10*3/uL <0.87 k/uL [facility] Monocytes/100 WBC (Bld) 10.8 % [facility] Neutrophils (Bld) [#/Vol] 3.99 10*3/uL 1.45 - 7.50 k/uL [facility] Neutrophils/100 WBC (Bld) 68.6 % [facility] Nucleated RBC (Bld) [#/Vol] [facility] Nucleated RBC/100 WBC (Bld) [Ratio] [facility] Platelet mean volume (Bld) [Entitic vol] 10.9 fL 9.0 - 12.7 fL [facility] Platelets (Bld) [#/Vol] 261 10*3/uL 150 - 400 k/uL [facility] RBC (Bld) [#/Vol] 2.02 10*6/uL Low 4.20 - 6.00 m/uL [facility] WBC (Bld) [#/Vol] 5.82 10*3/uL 3.70 - 11.00 k/uL [facility] CNPNon 12-15-2022 CNPN Normal [facility] Comprehensive metabolic 2000 panelon 12-15-2022 Albumin [Mass/Vol] 3.6 g/dL Normal 3.5-5.7 [facility] Comment on above: Order Comment: Speci men Type: BLOOD SPECIMENOrdering Facility: [facility] Address: [address] [place] [address] Performed By: #### 2 4323-8 ####[facility] LABCLIA [id number] [place] [address] [place] ALP [Catalytic activity/Vol] 50 U/L Normal 34-104 [facility] Comment on above: Order Comment: Speci men Type: BLOOD SPECIMENOrdering Facility: [facility] Address: [address] [place] [address] Performed By: #### 2 4323-8 ####PERRY CHARMS PPEC LABCLIA [id number] [place] [address] [place] ALT [Catalytic activity/Vol] 19 U/L Normal 7-52 [facility] Comment on above: Order Comment: Speci men Type: BLOOD SPECIMENOrdering Facility: [facility] Address: [address] [place] [address] Performed By: #### 2 4323-8 ####[facility] GRE[facility] LABCLIA [id number] [place] [address] [place] Anion gap [Moles/Vol] 3 mmol/L Low 9-18 [facility] Comment on above: Order Comment: Speci men Type: BLOOD SPECIMENOrdering Facility: [facility] Address: [address] [place] [address] Performed By: #### 2 4323-8 ####[facility] LABCLIA [id number] [address] [place] AST [Catalytic activity/Vol] 22 U/L Normal 13-39 [facility] Comment on above: Order Comment: Speci men Type: BLOOD SPECIMENOrdering Facility: [facility] Address: [address] [place] [address] Performed By: #### 2 4323-8 ####[facility] LABCLIA [id number] [place] [address] [place] Bilirubin [Mass/Vol] 1.3 mg/dL High 0.3-1.0 [facility] Comment on above: Order Comment: Speci men Type: BLOOD SPECIMENOrdering Facility: [facility] Address: [address] [place] [address] Result Comment: Use of this assay is not recommended for patients undergoing treatment with eltrombopag due to the potential for falsely elevated results. Performed By: #### 2 4323-8 ####[facility] GREEN LABCLIA [id number] [place] [address] [place] Calcium [Mass/Vol] 8.6 mg/dL Normal 8.6-10.3 [facility] Comment on above: Order Comment: Speci men Type: BLOOD SPECIMENOrdering Facility: [facility] Address: [address] [place] [address] Performed By: #### 2 4323-8 ####VTALIREZA YANG LABCLIA [id number] [place] [address] [place] Chloride [Moles/Vol] 102 mmol/L Normal 101-111 [facility] Comment on above: Order Comment: Speci men Type: BLOOD SPECIMENOrdering Facility: [facility] Address: [address] [place] [address] Performed By: #### 2 4323-8 ####[facility] LABCLIA [id number] [address] [place] CO2 [Moles/Vol] 33 mmol/L High 21-31 [facility] Comment on above: Order Comment: Speci men Type: BLOOD SPECIMENOrdering Facility: [facility] Address: [address] [place] [address] Performed By: #### 2 4323-8 ####[facility] LABCLIA [id number] [place] [address] [place] Creatinine [Mass/Vol] 1.04 mg/dL Normal 0.70-1.30 [facility] Comment on above: Order Comment: Speci men Type: BLOOD SPECIMENOrdering Facility: [facility] Address: [address] [place] [address] Result Comment: Use of this assay is not recommended for patients undergoing treatment with phenindione, due to the potential for falsely depressed results. Performed By: #### 2 4323-8 ####[facility] LABCLIA [id number] [place] [address] [place] ESTIMATED GLOMERULAR FILTRATION RATE 70 mL/min/1.73m??? Normal >=60 [facility] Comment on above: Order Comment: Speci men Type: BLOOD SPECIMENOrdering Facility: [facility] Address: [address] [address] Result Comment: Concepción mated Glomerular Filtration Rate [...] actual GFR. Performed By: #### 2 4323-8 ####[facility] LABIA [id number] [place] [address] [place] Glucose [Mass/Vol] 159 mg/dL High 74-99 [facility] Comment on above: Order Comment: Elfego gilbert Type: BLOOD SPECIMENOrdering Facility: [facility] Address: [address] [place] [address] Result Comment: The [place] Diabetes Association (ADA) provides guidance for cutoff [...] Standards of Medical Care in Diabetes 2016, Citizen [place] Diabetes Association. Diabetes Care. 2016.39(Suppl 1). Performed By: #### 2 4323-8 ####[facility] LABCLIA [id number] [place] [address] [place] Potassium [Moles/Vol] 4.1 mmol/L Normal 3.6-5.1 [facility] Comment on above: Order Comment: Elfego gilbert Type: BLOOD SPECIMENOrdering Facility: [facility] Address: [address] [place] [address] Performed By: #### 2 4323-8 ####PERRY CHARMS [facility] LABCLIA [id number] [place] [address] [place] Protein [Mass/Vol] 5.6 g/dL Low 6.4-8.9 [facility] Comment on above: Order Comment: Speci men Type: BLOOD SPECIMENOrdering Facility: [facility] Address: [address] [place] [address] Performed By: #### 2 4323-8 ####PEG YANG LABCLIA [id number] [place] [address] [place] Sodium [Moles/Vol] 138 mmol/L Normal 136-144 [facility] Comment on above: Order Comment: Speci men Type: BLOOD SPECIMENOrdering Facility: [facility] Address: [address] [place] [address] Performed By: #### 2 4323-8 ####PEG YANG LABCLIA [id number] [place] [address] [place] Urea nitrogen [Mass/Vol] 30 mg/dL High 7-25 [facility] Comment on above: Order Comment: Speci men Type: BLOOD SPECIMENOrdering Facility: [facility] Address: [address] [place] [address] Performed By: #### 2 4323-8 ####PEG YANG LABCLIA [id number] [place] [address] [place] Albumin [Mass/Vol] 3.6 g/dL 3.5 - 5.7 g/dL [facility] ALP [Catalytic activity/Vol] 50 U/L 34 - 104 U/L [facility] ALT [Catalytic activity/Vol] 19 U/L 7 - 52 U/L [facility] Anion gap [Moles/Vol] 3 mmol/L Low 9 - 18 mmol/L [facility] AST [Catalytic activity/Vol] 22 U/L 13 - 39 U/L [facility] Bilirubin [Mass/Vol] 1.3 mg/dL High 0.3 - 1 .0 mg/dL [facility] Calcium [Mass/Vol] 8.6 mg/dL 8.6 - 10. 3 mg/dL [facility] Chloride [Moles/Vol] 102 mmol/L 101 - 1 11 mmol/L [facility] CO2 [Moles/Vol] 33 mmol/L High 21 - 31 mmol/L [facility] Creatinine [Mass/Vol] 1.04 mg/dL 0.70 - 1.30 mg/dL [facility] Estimated Glomerular Filtration Rate 70 mL/min/1.73m >=60 mL/min/1.7 3m [facility] Glucose [Mass/Vol] 159 mg/dL High 74 - 99 mg/dL [facility] Potassium [Moles/Vol] 4.1 mmol/L 3.6 - 5.1 mmol/L [facility] Protein [Mass/Vol] 5.6 g/dL Low 6.4 - 8.9 g/dL [facility] Sodium [Moles/Vol] 138 mmol/L 136 - 144 mmol/L [facility] Urea nitrogen [Mass/Vol] 30 mg/dL High 7 - 25 mg/dL [facility] OPERATIVE NOon 12-05-2022 OPERATIVE NO Normal [facility] CBC W Auto Differential pane l (Bld)on 12-04-2022 Basophils (Bld) [#/Vol] 0.04 10*3/uL Normal <0.11 [facility] Comment on above: Order Comment: Speci men Type: BLOOD SPECIMENOrdering Facility: [facility] Address: [address] [place] [address] Performed By: #### 5 7021-8 ####[facility] LABORATORYCLIA [id number] [address] [place] Basophils/100 WBC (Bld) 0.5 % Normal [facility] Comment on above: Order Comment: Speci men Type: BLOOD SPECIMENOrdering Facility: [facility] Address: [address] [place] [address] Performed By: #### 5 7021-8 ####[facility] LABORATORYCLIA [id number] [address] [place] Differential cell count method Nom (Bld) Auto Normal [facility] Comment on above: Order Comment: Speci men Type: BLOOD SPECIMENOrdering Facility: [facility] Address: [address] [address] Performed By: #### 5 7021-8 ####[facility] LABORATORYCLIA [id number] [address] Eosinophils (Bld) [#/Vol] 0.16 10*3/uL Normal <0.46 [facility] Comment on above: Order Comment: Speci men Type: BLOOD SPECIMENOrdering Facility: [facility] Address: [address] [place] [address] Performed By: #### 5 7021-8 ####[facility] LABORATORYCLIA [id number] [address] Eosinophils/100 WBC (Bld) 2.1 % Normal [facility] Comment on above: Order Comment: Speci men Type: BLOOD SPECIMENOrdering Facility: [facility] Address: [address] [place] [address] Performed By: #### 5 7021-8 ####[facility] LABORATORYCLIA [id number] [address] Erythrocyte distribution width (RBC) [Ratio] 19.3 % High 11.5-15.0 [facility] Comment on above: Order Comment: Speci men Type: BLOOD SPECIMENOrdering Facility: [facility] Address: [address] [address] Performed By: #### 5 7021-8 ####[facility] LABORATORYCLIA [id number] [address] [place] Hematocrit (Bld) [Volume fraction] 26.1 % Low 39.0-51.0 [facility] Comment on above: Order Comment: Speci men Type: BLOOD SPECIMENOrdering Facility: [facility] Address: [address] [address] Performed By: #### 5 7021-8 ####[facility] LABORATORYCLIA [id number] [address] [place] Hemoglobin (Bld) [Mass/Vol] 8.5 g/dL Low 13.0-17.0 [facility] Comment on above: Order Comment: Speci men Type: BLOOD SPECIMENOrdering Facility: [facility] Address: [address] [place] [address] Performed By: #### 5 7021-8 ####[facility]ORATORYCLIA [id number] [address] [place] Immature granulocytes (Bld) [#/Vol] 0.03 10*3/uL Normal <0.10 [facility] Comment on above: Order Comment: Speci men Type: BLOOD SPECIMENOrdering Facility: [facility] Address: [address] [place] [address] Performed By: #### 5 7021-8 ####[facility]ORATORYCLIA [id number] [address] Immature granulocytes/100 WBC (Bld) 0.4 % Normal [facility] Comment on above: Order Comment: Speci men Type: BLOOD SPECIMENOrdering Facility: [facility] Address: [address] [place] [address] Performed By: #### 5 7021-8 ####[facility] LABORATORYCLIA [id number] [address] [place] Lymphocytes (Bld) [#/Vol] 1.35 10*3/uL Normal 1.00-4.00 [facility] Comment on above: Order Comment: Speci men Type: BLOOD SPECIMENOrdering Facility: [facility] Address: [address] [place] [address] Performed By: #### 5 7021-8 ####[facility]ORATORYCLIA [id number] [address] Lymphocytes/100 WBC (Bld) 18.0 % Normal [facility] Comment on above: Order Comment: Speci men Type: BLOOD SPECIMENOrdering Facility: [facility] Address: [address] [place] [address] Performed By: #### 5 7021-8 ####[facility]ORATORYCLIA [id number] [address] MCH (RBC) [Entitic mass] 38.3 pg High 26.0-34.0 [facility] Comment on above: Order Comment: Speci men Type: BLOOD SPECIMENOrdering Facility: [facility] Address: [address] [place] [address] Performed By: #### 5 7021-8 ####[facility] LABORATORYCLIA [id number] [address] [place] MCHC (RBC) [Mass/Vol] 32.6 g/dL Normal 30.5-36.0 [facility] Comment on above: Order Comment: Speci men Type: BLOOD SPECIMENOrdering Facility: [facility] Address: [address] [place] [address] Performed By: #### 5 7021-8 ####[facility] LABORATORYCLIA [id number] [address] OF [facility] MCV (RBC) [Entitic vol] 117.6 fL High 80.0-100.0 [facility] Comment on above: Order Comment: Speci men Type: BLOOD SPECIMENOrdering Facility: [facility] Address: [address] [place] [address] Performed By: #### 5 7021-8 ####[facility] LABORATORYCLIA [id number] [address] Monocytes (Bld) [#/Vol] 0.96 10*3/uL High <0.87 [facility] Comment on above: Order Comment: Speci men Type: BLOOD SPECIMENOrdering Facility: [facility] Address: [address] [place] [address] Performed By: #### 5 7021-8 ####[facility] LABORATORYCLIA [id number] [address] Monocytes/100 WBC (Bld) 12.8 % Normal [facility] Comment on above: Order Comment: Speci men Type: BLOOD SPECIMENOrdering Facility: [facility] Address: [address] [place] [address] Performed By: #### 5 7021-8 ####[facility]ORATORYCLIA [id number] [address] [place] Neutrophils (Bld) [#/Vol] 4.98 10*3/uL Normal 1.45-7.50 [facility] Comment on above: Order Comment: Speci men Type: BLOOD SPECIMENOrdering Facility: [facility] Address: [address] [place] [address] Performed By: #### 5 7021-8 ####[facility] LABORATORYCLIA [id number] [address] [place] Neutrophils/100 WBC (Bld) 66.2 % Normal [facility] Comment on above: Order Comment: Speci men Type: BLOOD SPECIMENOrdering Facility: [facility] Address: [address] [place] [address] Performed By: #### 5 7021-8 ####[facility] LABORATORYCLIA [id number] [address] STATES [facility] Nucleated RBC (Bld) [#/Vol] 0.08 10*3/uL High <0.01 [facility] Comment on above: Order Comment: Speci men Type: BLOOD SPECIMENOrdering Facility: [facility] Address: [address] [place] [address] Performed By: #### 5 7021-8 ####[facility] LABORATORYCLIA [id number] [address] [place] Nucleated RBC/100 WBC (Bld) [Ratio] 1.1 /100 WBC Normal [facility] Comment on above: Order Comment: Speci men Type: BLOOD SPECIMENOrdering Facility: [facility] Address: [address] [place] [address] Performed By: #### 5 7021-8 ####[facility] LABORATORYCLIA [id number] [address] [place] Platelet mean volume (Bld) [Entitic vol] 11.0 fL Normal 9.0-12.7 [facility] Comment on above: Order Comment: Speci men Type: BLOOD SPECIMENOrdering Facility: [facility] Address: [address] [place] [address] Performed By: #### 5 7021-8 ####[facility] LABORATORYCLIA [id number] [address] [place] Platelets (Bld) [#/Vol] 292 10*3/uL Normal 150-400 [facility] Comment on above: Order Comment: Speci men Type: BLOOD SPECIMENOrdering Facility: [facility] Address: [address] [place] [address] Performed By: #### 5 7021-8 ####[facility] LABORATORYCLIA [id number] [address] [place] RBC (Bld) [#/Vol] 2.22 10*6/uL Low 4.20-6.00 [facility] Comment on above: Order Comment: Speci men Type: BLOOD SPECIMENOrdering Facility: [facility] Address: [address] [place] [address] Performed By: #### 5 7021-8 ####[facility] LABORATORYCLIA [id number] [address] WBC (Bld) [#/Vol] 7.52 10*3/uL Normal 3.70-11.00 [facility] Comment on above: Order Comment: Speci men Type: BLOOD SPECIMENOrdering Facility: [facility] Address: [address] [place] [address] Performed By: #### 5 7021-8 ####[facility] LABORATORYCLIA [id number] [place] [address] [place] Basophils (Bld) [#/Vol] 0.04 10*3/uL <0.11 k/uL [facility] Basophils/100 WBC (Bld) 0.5 % [facility] Differential cell count method Nom (Bld) Auto [facility] Eosinophils (Bld) [#/Vol] 0.16 10*3/uL <0.46 k/uL [facility] Eosinophils/100 WBC (Bld) 2.1 % [facility] Erythrocyte distribution width (RBC) [Ratio] 19.3 % High 11.5 - 15.0 % [facility] Hematocrit (Bld) [Volume fraction] 26.1 % Low 39.0 - 51.0 % [facility] Hemoglobin (Bld) [Mass/Vol] 8.5 g/dL Low 13.0 - 17.0 g/dL [facility] Immature granulocytes (Bld) [#/Vol] 0.03 10*3/uL <0.10 k/uL [facility] Immature granulocytes/100 WBC (Bld) 0.4 % [facility] Lymphocytes (Bld) [#/Vol] 1.35 10*3/uL 1.00 - 4.00 k/uL [facility] Lymphocytes/100 WBC (Bld) 18.0 % [facility] MCH (RBC) [Entitic mass] 38.3 pg High 26.0 - 34.0 pg [facility] MCHC (RBC) [Mass/Vol] 32.6 g/dL 30.5 - 36.0 g/dL [facility] MCV (RBC) [Entitic vol] 117.6 fL High 80.0 - 100.0 fL [facility] Monocytes (Bld) [#/Vol] 0.96 10*3/uL High <0.87 k/uL [facility] Monocytes/100 WBC (Bld) 12.8 % [facility] Neutrophils (Bld) [#/Vol] 4.98 10*3/uL 1.45 - 7.50 k/uL [facility] Neutrophils/100 WBC (Bld) 66.2 % [facility] Nucleated RBC (Bld) [#/Vol] 0.08 10*3/uL High <0.01 k/uL [facility] Nucleated RBC/100 WBC (Bld) [Ratio] 1.1 /100 WBC [facility] Platelet mean volume (Bld) [Entitic vol] 11.0 fL 9.0 - 12.7 fL [facility] Platelets (Bld) [#/Vol] 292 10*3/uL 150 - 400 k/uL [facility] RBC (Bld) [#/Vol] 2.22 10*6/uL Low 4.20 - 6.00 m/uL [facility] WBC (Bld) [#/Vol] 7.52 10*3/uL 3.70 - 11.00 k/uL [facility] CNOVSPon 12-04-2022 CNOVSP Normal [facility] CNSWon 12-04-2022 CNSW Normal [facility] CBC W Auto Differential pane l (Bld)on 11-26-2022 Basophils (Bld) [#/Vol] 0.06 10*3/uL Normal <0.11 [facility] Comment on above: Order Comment: Speci men Type: BLOOD SPECIMENOrdering Facility: [facility] Address: [address] [place] [address] Performed By: #### 5 7021-8 ####[facility] LABORATORYCLIA [id number] [address] [place] Basophils/100 WBC (Bld) 1.0 % Normal [facility] Comment on above: Order Comment: Speci men Type: BLOOD SPECIMENOrdering Facility: [facility] Address: [address] [place] [address] Performed By: #### 5 7021-8 ####[facility] LABORATORYCLIA [id number] [address] [place] Differential cell count method Nom (Bld) Auto Normal [facility] Comment on above: Order Comment: Speci men Type: BLOOD SPECIMENOrdering Facility: [facility] Address: [address] [place] [address] Performed By: #### 5 7021-8 ####[facility] LABORATORYCLIA [id number] [place] [address] [place] Eosinophils (Bld) [#/Vol] 0.21 10*3/uL Normal <0.46 [facility] Comment on above: Order Comment: Speci men Type: BLOOD SPECIMENOrdering Facility: [facility] Address: [address] [place] [address] Performed By: #### 5 7021-8 ####[facility] LABORATORYCLIA [id number] [address] [place] Eosinophils/100 WBC (Bld) 3.4 % Normal [facility] Comment on above: Order Comment: Speci men Type: BLOOD SPECIMENOrdering Facility: [facility] Address: [address] [place] [address] Performed By: #### 5 7021-8 ####[facility] LABORATORYCLIA [id number] [address] Erythrocyte distribution width (RBC) [Ratio] 19.2 % High 11.5-15.0 [facility] Comment on above: Order Comment: Speci men Type: BLOOD SPECIMENOrdering Facility: [facility] Address: [address] [place] [address] Performed By: #### 5 7021-8 ####[facility] LABORATORYCLIA [id number] [address] Hematocrit (Bld) [Volume fraction] 26.1 % Low 39.0-51.0 [facility] Comment on above: Order Comment: Speci men Type: BLOOD SPECIMENOrdering Facility: [facility] Address: [address] [place] [address] Performed By: #### 5 7021-8 ####[facility] LABORATORYCLIA [id number] [address] Hemoglobin (Bld) [Mass/Vol] 8.3 g/dL Low 13.0-17.0 [facility] Comment on above: Order Comment: Speci men Type: BLOOD SPECIMENOrdering Facility: [facility] Address: [address] [place] [address] Performed By: #### 5 7021-8 ####[facility] LABORATORYCLIA [id number] [address] Immature granulocytes (Bld) [#/Vol] 10*3/uL Normal <0.10 [facility] Comment on above: Order Comment: Speci men Type: BLOOD SPECIMENOrdering Facility: [facility] Address: [address] [place] [address] Performed By: #### 5 7021-8 ####[facility] LABORATORYCLIA [id number] [address] [place] Immature granulocytes/100 WBC (Bld) 0.3 % Normal [facility] Comment on above: Order Comment: Speci men Type: BLOOD SPECIMENOrdering Facility: [facility] Address: [address] [place] [address] Performed By: #### 5 7021-8 ####[facility] LABORATORYCLIA [id number] [address] [place] Lymphocytes (Bld) [#/Vol] 1.47 10*3/uL Normal 1.00-4.00 [facility] Comment on above: Order Comment: Speci men Type: BLOOD SPECIMENOrdering Facility: [facility] Address: [address] [place] [address] Performed By: #### 5 7021-8 ####[facility] LABORATORYCLIA [id number] [address] Lymphocytes/100 WBC (Bld) 23.9 % Normal [facility] Comment on above: Order Comment: Speci men Type: BLOOD SPECIMENOrdering Facility: [facility] Address: [address] [place] [address] Performed By: #### 5 7021-8 ####[facility] LABORATORYCLIA [id number] [address] [place] MCH (RBC) [Entitic mass] 37.4 pg High 26.0-34.0 [facility] Comment on above: Order Comment: Speci men Type: BLOOD SPECIMENOrdering Facility: [facility] Address: [address] [place] [address] Performed By: #### 5 7021-8 ####[facility] LABORATORYCLIA [id number] [address] [place] [facility] MCHC (RBC) [Mass/Vol] 31.8 g/dL Normal 30.5-36.0 [facility] Comment on above: Order Comment: Speci men Type: BLOOD SPECIMENOrdering Facility: [facility] Address: [address] [place] [address] Performed By: #### 5 7021-8 ####[facility] LABORATORYCLIA [id number] [place] [address] [place] MCV (RBC) [Entitic vol] 117.6 fL High 80.0-100.0 [facility] Comment on above: Order Comment: Speci men Type: BLOOD SPECIMENOrdering Facility: [facility] Address: [address] [place] [address] Performed By: #### 5 7021-8 ####[facility] LABORATORYCLIA [id number] [place] [address] [place] Monocytes (Bld) [#/Vol] 0.80 10*3/uL Normal <0.87 [facility] Comment on above: Order Comment: Speci men Type: BLOOD SPECIMENOrdering Facility: [facility] Address: [address] [place] [address] Performed By: #### 5 7021-8 ####[facility] LABORATORYCLIA [id number] [address] Monocytes/100 WBC (Bld) 13.0 % Normal [facility] Comment on above: Order Comment: Speci men Type: BLOOD SPECIMENOrdering Facility: [facility] Address: [address] [place] [address] Performed By: #### 5 7021-8 ####[facility] LABORATORYCLIA [id number] [address] [place] Neutrophils (Bld) [#/Vol] 3.58 10*3/uL Normal 1.45-7.50 [facility] Comment on above: Order Comment: Speci men Type: BLOOD SPECIMENOrdering Facility: [facility] Address: [address] [place] [address] Performed By: #### 5 7021-8 ####[facility] LABORATORYCLIA [id number] [address] [place] Neutrophils/100 WBC (Bld) 58.4 % Normal [facility] Comment on above: Order Comment: Speci men Type: BLOOD SPECIMENOrdering Facility: [facility] Address: [facility] [place] [address] Performed By: #### 5 7021-8 ####[facility] LABORATORYCLIA [id number] [address] [place] Nucleated RBC (Bld) [#/Vol] 0.03 10*3/uL High <0.01 [facility] Comment on above: Order Comment: Speci men Type: BLOOD SPECIMENOrdering Facility: [facility] Address: [address] [place] [address] Performed By: #### 5 7021-8 ####[facility] LABORATORYCLIA [id number] [address] OF [place] [facility] Nucleated RBC/100 WBC (Bld) [Ratio] 0.5 /100 WBC Normal [facility] Comment on above: Order Comment: Speci men Type: BLOOD SPECIMENOrdering Facility: [facility] Address: [address] [place] [address] Performed By: #### 5 7021-8 ####[facility] LABORATORYCLIA [id number] [address] [place] Platelet mean volume (Bld) [Entitic vol] 11.5 fL Normal 9.0-12.7 [facility] Comment on above: Order Comment: Speci men Type: BLOOD SPECIMENOrdering Facility: [facility] Address: [address] [place] [address] Performed By: #### 5 7021-8 ####[facility] LABORATORYCLIA [id number] [address] [place] Platelets (Bld) [#/Vol] 292 10*3/uL Normal 150-400 [facility] Comment on above: Order Comment: Speci men Type: BLOOD SPECIMENOrdering Facility: [facility] Address: [address] [place] [address] Performed By: #### 5 7021-8 ####[facility] LABORATORYCLIA [id number] [address] [place] RBC (Bld) [#/Vol] 2.22 10*6/uL Low 4.20-6.00 [facility] Comment on above: Order Comment: Speci men Type: BLOOD SPECIMENOrdering Facility: [facility] Address: [address] [place] [address] Performed By: #### 5 7021-8 ####[facility] LABORATORYCLIA [id number] [address] OF [place] [facility] WBC (Bld) [#/Vol] 6.14 10*3/uL Normal 3.70-11.00 [facility] Comment on above: Order Comment: Speci men Type: BLOOD SPECIMENOrdering Facility: [facility] Address: [address] [place] [address] Performed By: #### 5 7021-8 ####[facility] LABORATORYCLIA [id number] [address] OF [place] [facility] CNOVSPon 11-26-2022 CNOVSP Normal [facility] CNPNon 11-26-2022 CNPN Normal [facility] EPO SerPl-aCncon 11-26-2022 Erythropoietin (EPO) Qn 74.5 mIU/mL High 2.6-18.5 [facility] Comment on above: Order Comment: Speci men Type: BLOOD SPECIMENOrdering Facility: [facility] Address: [address] [place] [address] Performed By: #### 1 5061-5 ####[facility] LABCLIA [id number] [facility] [id number] OF [place] [facility] CNPNon 11-06-2022 CNPN Normal [facility] CBC W Auto Differential pane l (Bld)on 11-05-2022 Basophils (Bld) [#/Vol] 0.07 10*3/uL Normal <0.11 [facility] Comment on above: Order Comment: Speci men Type: BLOOD SPECIMENOrdering Facility: [facility] Address: [address] [place] [address] Performed By: #### 5 7021-8 ####[facility] LABORATORYCLIA [id number] [address] [place] Basophils/100 WBC (Bld) 1.0 % Normal [facility] Comment on above: Order Comment: Speci men Type: BLOOD SPECIMENOrdering Facility: [facility] Address: [address] [place] [address] Performed By: #### 5 7021-8 ####[facility] LABORATORYCLIA [id number] [address] [place] Differential cell count method Nom (Bld) Auto Normal [facility] Comment on above: Order Comment: Speci men Type: BLOOD SPECIMENOrdering Facility: [facility] Address: [address] [place] [address] Performed By: #### 5 7021-8 ####[facility] LABORATORYCLIA [id number] [address] [place] Eosinophils (Bld) [#/Vol] 0.19 10*3/uL Normal <0.46 [facility] Comment on above: Order Comment: Speci men Type: BLOOD SPECIMENOrdering Facility: [facility] Address: [address] [place] [address] Performed By: #### 5 7021-8 ####[facility] LABORATORYCLIA [id number] [address] Eosinophils/100 WBC (Bld) 2.7 % Normal [facility] Comment on above: Order Comment: Speci men Type: BLOOD SPECIMENOrdering Facility: [facility] Address: [address] [place] [address] Performed By: #### 5 7021-8 ####[facility] LABORATORYCLIA [id number] [address] [place] Erythrocyte distribution width (RBC) [Ratio] 18.8 % High 11.5-15.0 [facility] Comment on above: Order Comment: Speci men Type: BLOOD SPECIMENOrdering Facility: [facility] Address: [address] [place] [address] Performed By: #### 5 7021-8 ####[facility]ORATORYCLIA [id number] [address] [place] Hematocrit (Bld) [Volume fraction] 24.2 % Low 39.0-51.0 [facility] Comment on above: Order Comment: Speci men Type: BLOOD SPECIMENOrdering Facility: [facility] Address: [address] [place] [address] Performed By: #### 5 7021-8 ####[facility] LABORATORYCLIA [id number] [address] [place] Hemoglobin (Bld) [Mass/Vol] 7.9 g/dL Low 13.0-17.0 [facility] Comment on above: Order Comment: Speci men Type: BLOOD SPECIMENOrdering Facility: [facility] Address: [address] [place] [address] Performed By: #### 5 7021-8 ####[facility] LABORATORYCLIA [id number] [address] [place] Immature granulocytes (Bld) [#/Vol] 0.03 10*3/uL Normal <0.10 [facility] Comment on above: Order Comment: Speci men Type: BLOOD SPECIMENOrdering Facility: [facility] Address: [address] [place] [address] Performed By: #### 5 7021-8 ####[facility] LABORATORYCLIA [id number] [address] OF [place] Immature granulocytes/100 WBC (Bld) 0.4 % Normal [facility] Comment on above: Order Comment: Speci men Type: BLOOD SPECIMENOrdering Facility: [facility] Address: [address] [place] [address] Performed By: #### 5 7021-8 ####[facility] LABORATORYCLIA [id number] [address] [place] Lymphocytes (Bld) [#/Vol] 1.08 10*3/uL Normal 1.00-4.00 [facility] Comment on above: Order Comment: Speci men Type: BLOOD SPECIMENOrdering Facility: [facility] Address: [address] [place] [address] Performed By: #### 5 7021-8 ####[facility] LABORATORYCLIA [id number] [address] Lymphocytes/100 WBC (Bld) 15.6 % Normal [facility] Comment on above: Order Comment: Speci men Type: BLOOD SPECIMENOrdering Facility: [facility] Address: [address] [place] [address] Performed By: #### 5 7021-8 ####[facility] LABORATORYCLIA [id number] [address] STATES [facility] MCH (RBC) [Entitic mass] 38.0 pg High 26.0-34.0 [facility] Comment on above: Order Comment: Speci men Type: BLOOD SPECIMENOrdering Facility: [facility] Address: [address] [place] [address] Performed By: #### 5 7021-8 ####[facility] LABORATORYCLIA [id number] [address] STATES [facility] MCHC (RBC) [Mass/Vol] 32.6 g/dL Normal 30.5-36.0 [facility] Comment on above: Order Comment: Speci men Type: BLOOD SPECIMENOrdering Facility: [facility] Address: [address] [place] [address] Performed By: #### 5 7021-8 ####[facility] LABORATORYCLIA [id number] [address] STATES [facility] MCV (RBC) [Entitic vol] 116.3 fL High 80.0-100.0 [facility] Comment on above: Order Comment: Speci men Type: BLOOD SPECIMENOrdering Facility: [facility] Address: [address] [place] [address] Performed By: #### 5 7021-8 ####[facility] LABORATORYCLIA [id number] [address] Monocytes (Bld) [#/Vol] 1.06 10*3/uL High <0.87 [facility] Comment on above: Order Comment: Speci men Type: BLOOD SPECIMENOrdering Facility: [facility] Address: [address] [place] [address] Performed By: #### 5 7021-8 ####[facility]ORATORYCLIA [id number] [address] [place] Monocytes/100 WBC (Bld) 15.3 % Normal [facility] Comment on above: Order Comment: Speci men Type: BLOOD SPECIMENOrdering Facility: [facility] Address: [address] [place] [address] Performed By: #### 5 7021-8 ####[facility]ORATORYCLIA [id number] [place] [address] [place] Neutrophils (Bld) [#/Vol] 4.50 10*3/uL Normal 1.45-7.50 [facility] Comment on above: Order Comment: Speci men Type: BLOOD SPECIMENOrdering Facility: [facility] Address: [address] [place] [address] Performed By: #### 5 7021-8 ####[facility]ORATORYCLIA [id number] [address] [place] Neutrophils/100 WBC (Bld) 65.0 % Normal [facility] Comment on above: Order Comment: Speci men Type: BLOOD SPECIMENOrdering Facility: [facility] Address: [address] [place] [address] Performed By: #### 5 7021-8 ####[facility]ORATORYCLIA [id number] [place] [address] [place] Nucleated RBC (Bld) [#/Vol] 0.03 10*3/uL High <0.01 [facility] Comment on above: Order Comment: Speci men Type: BLOOD SPECIMENOrdering Facility: [facility] Address: [address] [place] [address] Performed By: #### 5 7021-8 ####[facility]ORATORYCLIA [id number] [place] [address] [place] Nucleated RBC/100 WBC (Bld) [Ratio] 0.4 /100 WBC Normal [facility] Comment on above: Order Comment: Speci men Type: BLOOD SPECIMENOrdering Facility: [facility] Address: [address] [place] [address] Performed By: #### 5 7021-8 ####[facility] LABORATORYCLIA [id number] [place] [address] [place] Platelet mean volume (Bld) [Entitic vol] 11.3 fL Normal 9.0-12.7 [facility] Comment on above: Order Comment: Speci men Type: BLOOD SPECIMENOrdering Facility: [facility] Address: [address] [place] [address] Performed By: #### 5 7021-8 ####[facility] LABORATORYCLIA [id number] [address] [place] Platelets (Bld) [#/Vol] 289 10*3/uL Normal 150-400 [facility] Comment on above: Order Comment: Speci men Type: BLOOD SPECIMENOrdering Facility: [facility] Address: [address] [place] [address] Performed By: #### 5 7021-8 ####[facility] LABORATORYCLIA [id number] [place] [address] [place] RBC (Bld) [#/Vol] 2.08 10*6/uL Low 4.20-6.00 [facility] Comment on above: Order Comment: Speci men Type: BLOOD SPECIMENOrdering Facility: [facility] Address: [address] [place] [address] Performed By: #### 5 7021-8 ####[facility] LABORATORYCLIA [id number] [address] [place] WBC (Bld) [#/Vol] 6.93 10*3/uL Normal 3.70-11.00 [facility] Comment on above: Order Comment: Speci men Type: BLOOD SPECIMENOrdering Facility: [facility] Address: [address] [place] [address] Performed By: #### 5 7021-8 ####[facility] LABORATORYCLIA [id number] [place] [address] [place] CNOVSPon 11-05-2022 CNOVSP Normal [facility] COPPER BLOODon 11-05-2022 Copper [Mass/Vol] 100 ug/dL Normal 70-140 [facility] Comment on above: Order Comment: Speci men Type: BLOOD SPECIMENOrdering Facility: [facility] Address: [address] [place] [address] Result Comment: This test was developed and its performance characteristics determined by [facility]'s [facility] Pathology and Laboratory Medicine [place] ([facility]). It has not been cleared or approved by the FDA. -[facility] is regulated under CLIA as qualified to perform high-complexity testing. This test is used for clinical purposes. It should not be regarded as investigational or for research. Performed By: #### C OPPER ####[facility] LABCLIA [id number] [place] [address] [place] EPO SerPl-aCncon 11-05-2022 Erythropoietin (EPO) Qn 79.6 mIU/mL High 2.6-18.5 [facility] Comment on above: Order Comment: Speci men Type: BLOOD SPECIMENOrdering Facility: [facility] Address: [address] [place] [address] Performed By: #### 1 5061-5 ####[facility] LABCLIA [id number] [place] [address] [place] BONE MARROW ANALYSISon 10-24 ADDENDUM 1: Normal [facility] Comment on above: Order Comment: Speci men Type: BONE MARROW SPECIMENOrdering Facility: [facility] Address: [address] [place] [address] Result Comment: Cyto genetics (see separate report) revealed a normal male karyotype: 46,XY[20]. The myeloid NGS panel (see separate report) identified the following variants (with VAFs): SF3B1 p.[id number] (41.7%) and TET2 p.W5834Yym*6 (46%). The overall findings are consistent with [...] 3:48 PM Performed By: #### B MRT ####[facility] LABORATORYCLIA [id number] [address] ADDENDUM 2: Normal [facility] Comment on above: Order Comment: Speci men Type: BONE MARROW SPECIMENOrdering Facility: [facility] Address: [address] [place], [place] [id number] Result Comment: The gross description for part A is as follows:A. BONE MARROW ASPIRATE LEFT POSTERIOR ILIAC CRESTReceived are air-dried bone marrow aspirate smears. Submitted for light microscopy.Addendum electronically signed by Nnamdi Hernandez MD on 11/12/2022 at 4:01 PM Performed By: #### B MRT ####[facility] LABORATORYCLIA [id number] [address] STATES MALU CASE REPORT [facility] Comment on above: Order Comment: Speci men Type: BONE MARROW SPECIMENOrdering Facility: [facility] Address: [address] [place] [address] Result Comment: Bone Marrow Pathology Report Case: [id number] Provider: Randa Rowell DO Collected: 10/24/2022 12:[address] [facility] Received: 10/24/2022 02:31 PM INTERVENTIONAL RADIOLOGYPathologist: MATTHIAS Ordonezpecimens: A) - BONE MARROW ASPIRATE LEFT POSTERIOR ILIAC CREST B) - BONE MARROW BIOPSY LEFT POSTERIOR ILIAC CREST C) - BONE MARROW CLOT LEFT POSTERIOR ILIAC CREST Performed By: #### B MRT ####[facility] LABORATORYCLIA [id number] [address] DIAGNOSIS COMMENT [facility] [place] [facility] Hospital Comment on above: Order Comment: Speci men Type: BONE MARROW SPECIMENOrdering Facility: [facility] Address: [address] [place] [address] Performed By: #### B MRT ####[facility] LABORATORYCLIA [id number] [address] FINAL DIAGNOSIS Normal [facility] Comment on above: Order Comment: Speci men Type: BONE MARROW SPECIMENOrdering Facility: [facility] Address: [address] [place] [address] Result Comment: A-C. 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 Performed By: #### B MRT ####[facility] LABORATORYCLIA [id number] [address] FINAL PERFORMING LAB Normal [facility] Comment on above: Order Comment: Speci men Type: BONE MARROW SPECIMENOrdering Facility: [facility] Address: [address] [place] [address] Result Comment: Diag nostic interpretation performed at [facility], [address] [place] [address] CLIA# [id number] Director: Ned Meza M.D. Performed By: #### B MRT ####[facility] LABORATORYCLIA [id number] [address] GROSS DESCRIPTION Normal [facility] Comment on above: Order Comment: Speci men Type: BONE MARROW SPECIMENOrdering Facility: [facility] Address: [address] [place] [address] Result Comment: B. B ONE MARROW BIOPSY LEFT POSTERIOR ILIAC CRESTReceived in formalin 1 segment of cylindrical tissue aggregating to 0.9 x 0.2 x 0.2 cm, nesbitt to red-brown and of a firm consistency. Totally submitted in formalin in one cassette after decalcification.Gross examination performed at [facility], [address] [place] [address] CLIA# [id number]. BONE MARROW CLOT LEFT POSTERIOR ILIAC CRESTReceived in formalin are multiple nesbitt, soft feathery segments of tissue and a segment of red-brown hemorrhagic material aggregating to 2.0 x 1.6 x 0.4 cm. Totally submitted in one cassette.Gross examination performed at [facility], [address] [place] [address] CLIA# [id number] Gross examination performed at [facility], [address] [place], [place] [address]KVB October 27, 2022 2:42 PM Performed By: #### B MRT ####[facility] LABORATORYCLIA [id number] [address] MICROSCOPIC DESCRIPTION Normal [facility] Comment on above: Order Comment: Speci men Type: BONE MARROW SPECIMENOrdering Facility: [facility] Address: [address] [place] [address] Result Comment: DESIREE PHERAL BLOOD:CBC DiffWBC 6.01 k/uL Neut% 68.1 %Hemoglobin 8.4 g/dL Lymph% 17.6 %MCV 113.1 fL Vance% 11.1 %RDW-CV 18.8 % Eosin% 1.7 %Platelet [...] NGS pending. Performed By: #### B MRT ####[facility] LABORATORYCLIA [id number] [address] [place] BRIEF OP NOTon 10-24-2022 BRIEF OP NOT Normal [facility] CBC W Auto Differential pane l (Bld)on 10-24-2022 Basophils (Bld) [#/Vol] 0.05 10*3/uL Normal <0.11 [facility] Comment on above: Order Comment: Speci men Type: BLOOD SPECIMENOrdering Facility: [facility] Address: [address] [place] [address] Performed By: #### 5 7021-8 ####[facility] LABORATORYCLIA [id number] [address] [place] Basophils/100 WBC (Bld) 0.8 % Normal [facility] Comment on above: Order Comment: Speci men Type: BLOOD SPECIMENOrdering Facility: [facility] Address: [address] [place] [address] Performed By: #### 5 7021-8 ####[facility] LABORATORYCLIA [id number] [address] [place] Differential cell count method Nom (Bld) Auto Normal [facility] Comment on above: Order Comment: Speci men Type: BLOOD SPECIMENOrdering Facility: [facility] Address: [address] [place] [address] Performed By: #### 5 7021-8 ####[facility] LABORATORYCLIA [id number] [place] [address] [place] Eosinophils (Bld) [#/Vol] 0.10 10*3/uL Normal <0.46 [facility] Comment on above: Order Comment: Speci men Type: BLOOD SPECIMENOrdering Facility: [facility] Address: [address] [place] [address] Performed By: #### 5 7021-8 ####[facility] LABORATORYCLIA [id number] [address] [place] Eosinophils/100 WBC (Bld) 1.7 % Normal [facility] Comment on above: Order Comment: Speci men Type: BLOOD SPECIMENOrdering Facility: [facility] Address: [address] [place] [address] Performed By: #### 5 7021-8 ####[facility] LABORATORYCLIA [id number] [address] Erythrocyte distribution width (RBC) [Ratio] 18.8 % High 11.5-15.0 [facility] Comment on above: Order Comment: Speci men Type: BLOOD SPECIMENOrdering Facility: [facility] Address: [address] [place] [address] Performed By: #### 5 7021-8 ####[facility] LABORATORYCLIA [id number] [address] OF [facility] Hematocrit (Bld) [Volume fraction] 25.0 % Low 39.0-51.0 [facility] Comment on above: Order Comment: Speci men Type: BLOOD SPECIMENOrdering Facility: [facility] Address: [address] [place] [address] Performed By: #### 5 7021-8 ####[facility] LABORATORYCLIA [id number] [address] OF [facility] Hemoglobin (Bld) [Mass/Vol] 8.4 g/dL Low 13.0-17.0 [facility] Comment on above: Order Comment: Speci men Type: BLOOD SPECIMENOrdering Facility: [facility] Address: [address] [place] [address] Performed By: #### 5 7021-8 ####[facility] LABORATORYCLIA [id number] [address] [place] Immature granulocytes (Bld) [#/Vol] 0.04 10*3/uL Normal <0.10 [facility] Comment on above: Order Comment: Speci men Type: BLOOD SPECIMENOrdering Facility: [facility] Address: [address] [place] [address] Performed By: #### 5 7021-8 ####[facility] LABORATORYCLIA [id number] [address] OF [place] Immature granulocytes/100 WBC (Bld) 0.7 % Normal [facility] Comment on above: Order Comment: Speci men Type: BLOOD SPECIMENOrdering Facility: [facility] Address: [address] [place] [address] Performed By: #### 5 7021-8 ####[facility] LABORATORYCLIA [id number] [address] Lymphocytes (Bld) [#/Vol] 1.06 10*3/uL Normal 1.00-4.00 [facility] Comment on above: Order Comment: Speci men Type: BLOOD SPECIMENOrdering Facility: [facility] Address: [address] [address] Performed By: #### 5 7021-8 ####[facility] LABORATORYCLIA [id number] [address] Lymphocytes/100 WBC (Bld) 17.6 % Normal [facility] Comment on above: Order Comment: Speci men Type: BLOOD SPECIMENOrdering Facility: [facility] Address: [address] [place] [address] Performed By: #### 5 7021-8 ####[facility] LABORATORYCLIA [id number] [address] MCH (RBC) [Entitic mass] 38.0 pg High 26.0-34.0 [facility] Comment on above: Order Comment: Speci men Type: BLOOD SPECIMENOrdering Facility: [facility] Address: [address] [place] [address] Performed By: #### 5 7021-8 ####[facility] LABORATORYCLIA [id number] [address] STATES [facility] MCHC (RBC) [Mass/Vol] 33.6 g/dL Normal 30.5-36.0 [facility] Comment on above: Order Comment: Speci men Type: BLOOD SPECIMENOrdering Facility: [facility] Address: [address] [place] [address] Performed By: #### 5 7021-8 ####[facility] LABORATORYCLIA [id number] [place] [address] [place] MCV (RBC) [Entitic vol] 113.1 fL High 80.0-100.0 [facility] Comment on above: Order Comment: Speci men Type: BLOOD SPECIMENOrdering Facility: [facility] Address: [address] [place] [address] Performed By: #### 5 7021-8 ####[facility] LABORATORYCLIA [id number] [place] [address] [place] Monocytes (Bld) [#/Vol] 0.67 10*3/uL Normal <0.87 [facility] Comment on above: Order Comment: Speci men Type: BLOOD SPECIMENOrdering Facility: [facility] Address: [address] [place] [address] Performed By: #### 5 7021-8 ####[facility] LABORATORYCLIA [id number] [address] [place] Monocytes/100 WBC (Bld) 11.1 % Normal [facility] Comment on above: Order Comment: Speci men Type: BLOOD SPECIMENOrdering Facility: [facility] Address: [address] [place] [address] Performed By: #### 5 7021-8 ####[facility] LABORATORYCLIA [id number] [address] [place] Neutrophils (Bld) [#/Vol] 4.09 10*3/uL Normal 1.45-7.50 [facility] Comment on above: Order Comment: Speci men Type: BLOOD SPECIMENOrdering Facility: [facility] Address: [address] [place] [address] Performed By: #### 5 7021-8 ####[facility] LABORATORYCLIA [id number] [address] [place] Neutrophils/100 WBC (Bld) 68.1 % Normal [facility] Comment on above: Order Comment: Speci men Type: BLOOD SPECIMENOrdering Facility: [facility] Address: [address] [place] [address] Performed By: #### 5 7021-8 ####[facility] LABORATORYCLIA [id number] [address] [place] Nucleated RBC (Bld) [#/Vol] 0.05 10*3/uL High <0.01 [facility] Comment on above: Order Comment: Speci men Type: BLOOD SPECIMENOrdering Facility: [facility] Address: [address] [place] [address] Performed By: #### 5 7021-8 ####[facility] LABORATORYCLIA [id number] [address] [place] Nucleated RBC/100 WBC (Bld) [Ratio] 0.8 /100 WBC Normal [facility] Comment on above: Order Comment: Speci men Type: BLOOD SPECIMENOrdering Facility: [facility] Address: [address] [place] [address] Performed By: #### 5 7021-8 ####[facility] LABORATORYCLIA [id number] [address] [place] Platelet mean volume (Bld) [Entitic vol] 11.5 fL Normal 9.0-12.7 [facility] Comment on above: Order Comment: Speci men Type: BLOOD SPECIMENOrdering Facility: [facility] Address: [address] [place] [address] Performed By: #### 5 7021-8 ####[facility] LABORATORYCLIA [id number] [address] [place] Platelets (Bld) [#/Vol] 251 10*3/uL Normal 150-400 [facility] Comment on above: Order Comment: Speci men Type: BLOOD SPECIMENOrdering Facility: [facility] Address: [address] [place] [address] Performed By: #### 5 7021-8 ####[facility] LABORATORYCLIA [id number] [address] [place] RBC (Bld) [#/Vol] 2.21 10*6/uL Low 4.20-6.00 [facility] Comment on above: Order Comment: Speci men Type: BLOOD SPECIMENOrdering Facility: [facility] Address: [address] [address] Performed By: #### 5 7021-8 ####[facility] LABORATORYCLIA [id number] [address] WBC (Bld) [#/Vol] 6.01 10*3/uL Normal 3.70-11.00 [facility] Comment on above: Order Comment: Speci men Type: BLOOD SPECIMENOrdering Facility: [facility] Address: [address] [address] Performed By: #### 5 7021-8 ####[facility] LABORATORYIA [id number] [address] OF [facility] Basophils (Bld) [#/Vol] 0.05 10*3/uL <0.11 k/uL [facility] Basophils/100 WBC (Bld) 0.8 % [facility] Differential cell count method Nom (Bld) Auto [facility] Eosinophils (Bld) [#/Vol] 0.10 10*3/uL <0.46 k/uL [facility] Eosinophils/100 WBC (Bld) 1.7 % [facility] Erythrocyte distribution width (RBC) [Ratio] 18.8 % High 11.5 - 15.0 % [facility] Hematocrit (Bld) [Volume fraction] 25.0 % Low 39.0 - 51.0 % [facility] Hemoglobin (Bld) [Mass/Vol] 8.4 g/dL Low 13.0 - 17.0 g/dL [facility] Immature granulocytes (Bld) [#/Vol] 0.04 10*3/uL <0.10 k/uL [facility] Immature granulocytes/100 WBC (Bld) 0.7 % [facility] Lymphocytes (Bld) [#/Vol] 1.06 10*3/uL 1.00 - 4.00 k/uL [facility] Lymphocytes/100 WBC (Bld) 17.6 % [facility] MCH (RBC) [Entitic mass] 38.0 pg High 26.0 - 34.0 pg [facility] MCHC (RBC) [Mass/Vol] 33.6 g/dL 30.5 - 36.0 g/dL [facility] MCV (RBC) [Entitic vol] 113.1 fL High 80.0 - 100.0 fL [facility] Monocytes (Bld) [#/Vol] 0.67 10*3/uL <0.87 k/uL [facility] Monocytes/100 WBC (Bld) 11.1 % [facility] Neutrophils (Bld) [#/Vol] 4.09 10*3/uL 1.45 - 7.50 k/uL [facility] Neutrophils/100 WBC (Bld) 68.1 % [facility] Nucleated RBC (Bld) [#/Vol] 0.05 10*3/uL High <0.01 k/uL [facility] Nucleated RBC/100 WBC (Bld) [Ratio] 0.8 /100 WBC [facility] Platelet mean volume (Bld) [Entitic vol] 11.5 fL 9.0 - 12.7 fL [facility] Platelets (Bld) [#/Vol] 251 10*3/uL 150 - 400 k/uL [facility] RBC (Bld) [#/Vol] 2.21 10*6/uL Low 4.20 - 6.00 m/uL [facility] WBC (Bld) [#/Vol] 6.01 10*3/uL 3.70 - 11.00 k/uL [facility] CHROM ANAL W RFX MDS FISHon 10-24-2022 CHROM ANLY W/RFLX MDS FISH Normal [facility] Comment on above: Order Comment: Speci men Type: BONE MARROW SPECIMENOrdering Facility: [facility] Address: [address] [place], [place] [address] Result Comment: Woodrow hurst Accession Number: [id number]: Randa RowellPathologist: MarySurgical Pathology No: [id number] diagnosis: Macrocytic anemiaSpecimen Type: Bone marrowReceived Date: [...] reviewed by Gypsy Johns MD, PhDPerformed by [facility] HospitalPathology and Laboratory Medicine InstituteDivision of Molecular PathologyCytogenetics Lab, [facility]-[id number] [place], [place] [address]Phone: Toll free: Performed By: #### C HRMDS ####[facility] NeoPath NetworksSCLIA [id number] [address] [place] CT BONE MARROW BX AND ASPIRA TIONon 10-24-2022 CT BONE MARROW BX AND ASPIRATION Normal [facility] DNA EXTRACTION BONE MARROW ( BUFFY COAT)on 10-24-2022 DNA EXTRACTION BONE MARROW (BUFFY COAT) Normal [facility] Comment on above: Order Comment: Speci men Type: BONE MARROW SPECIMENOrdering Facility: [facility] Address: [address] [place] [address] Result Comment: This specimen was received and successfully processed for future DNA purification should molecular testing be needed. Specimens will be available for 3 years from date of collection.To order testing on this specimen for [facility] patients, please place an [facility] order for DNA and RNA Clinical Testing (SQNUCADD). To order testing for patients outside of the [facility] system, please request DNA and RNA for Clinical Testing, order code [id number].If additional paperwork is required for testing, please send completed forms via secure email to . Performed By: #### N UCBUF ####[facility] ILLUMINA LIMSCLIA [id number] [address] [place] FLOW CYTOMETRY BONE MARROW H OLD (BMHOLD)on 10-24-2022 FLOW CYTOMETRY ORDER STATUS See Results in chart under F case ID Normal [facility] Comment on above: Order Comment: Speci men Type: BONE MARROW SPECIMENOrdering Facility: [facility] Address: [address] [address] Performed By: #### B MHOLD ####[facility] LABCLIA [id number] [address] FLT3 ITD HN BONE MARROWon [facility] SIGNOUT PATHOLOGIST [id number] Normal [facility] Comment on above: Order Comment: Speci men Type: BONE MARROW SPECIMENOrdering Facility: [facility] Address: [address] [address] Performed By: #### F 3IM, MYMNGS ####[facility] LIMSCLIA [id number] [address] FLT3 ITD HN PANEL BONE MARROW Normal [facility] Comment on above: Order Comment: Speci men Type: BONE MARROW SPECIMENOrdering Facility: [facility] Address: [address] [place] [address] Result Comment: FLT3 Internal Tandem Duplication (ITD) Mutation TestingLaboratory Accession Number: [id number] Internal Tandem Duplication (ITD) mutation: Not DetectedComment:FLT3/ITD [...] from the specimen provided. Regions of the AVK4qpxmajjx kinase receptor gene are subjected to the [...] was developed and its performance characteristics determinedby [facility]'s [facility] LaboratoryMed[facility] [place] ([facility]). It has not been cleared or approved bythe FDA. RT-PLMI is regulated under CLIA as certified to perform high-complexity testing. This test is used for clinical purposes. It shouldnot be regarded as investigational or for research.Testing and interpretation performed at [facility], [address] [place] [address]. CLIA Number: [id number] reviewed by Tahmina Duong, PhD, [facility] Performed By: #### F 3IM, MYCATARINO ####[facility] [employer] LIMSCLIA [id number] [place] [address] [place] HISTORY PHYSICALon 2 HISTORY PHYSICAL Normal [facility] IMAGING GUIDED BONE MARROW B IOPSY AND ASPIRATION (SHAUN)([place] [facility] AV,[facility])on 10-24-2022 [facility] MYELOID NGS PANEL BONE MARRO Won 10-24-2022 MYELOID NGS PANEL BONE MARROW Normal [facility] Comment on above: Order Comment: Speci men Type: BONE MARROW SPECIMENOrdering Facility: [facility] Address: [address] [place] [address] Result Comment: Myel oid NGS Panel Bone MarrowLaboratory Accession Number: [id number]:Please see linked document and/or separate report for full result whenavailable.As reviewed by Laron Jeong MD Performed By: #### F 3IM, MYMNGS ####[facility] I[facility] LIMSCLIA [id number] [address] OF [facility] PT panel Coag (PPP)on 2021 INR Coag (PPP) [Relative time] 1.3 {INR} Normal 0.9-1.3 [facility] Comment on above: Order Comment: Elfego gilbert Type: BLOOD SPECIMENOrdering Facility: [facility] Address: [address] [place] [address] Result Comment: Tanna min K Antagonist (VKA) Therapeutic Range: INR 2 to 3 (Target INR of 2.5)Note: For patients treated with VKA drugs, such as warfarin, the [place] [employer] 2012 Guideline recommends [...] 70: 252-289 Performed By: #### 3 4528-0 ####[facility] LABORATORYCLIA [id number] [address] [place] PT Coag (PPP) [Time] 13.5 s High 9.7-13.0 [facility] Comment on above: Order Comment: Speci men Type: BLOOD SPECIMENOrdering Facility: [facility] Address: [place] [address] Performed By: #### 3 4528-0 ####[facility] LABORATORYCLIA [id number] [place] [address] [place] INR Coag (PPP) [Relative time] 1.3 {INR} 0.9 - 1.3 [facility] PT Coag (PPP) [Time] 13.5 s High 9.7 - 1 3.0 sec [facility] CNOVon 10-16-2022 CNOV Normal [facility] CNOVSPon 10-09-2022 CNOVSP Normal [facility] CNPNon 10-09-2022 CNPN Normal [facility] CNPNon 09-19-2022 CNPN [facility] HISTORY PHYSICALon HISTORY PHYSICAL HNO ID: [id number] Author: Baljinder Trevizo MD Service: Pain Management [...] reported polyps per patient recollection Hypertension Hypothyroidism MCFP current use of anticoagulants with INR goal [...] RIGHT OP SURGERY Right 12/18/2020 Dr Arreola [facility] ARTHROPLASTY TOTAL SHOULDER 11/09/2008 right ARTHROSCOPY OF [...] July 29, 2022 TIME: 11:24 AM Normal [facility] NURSING PROGon 07-29-2022 NURSING PROG HNO ID: [id number] Author: Alice Armstrong RN Service: Nursing Author [...] and rest. Friend verbalizes unentertaining of this. [facility] OPERATIVE NOon 07-29-2022 OPERATIVE NO HNO ID: [id number] Author: Baljinder Trevizo MD Service: Pain Management [...] DATE: August 01, 2022 TIME: 12:26 PM [facility] XR FLUOROSCOPYon 07-29-2022 XR FLUOROSCOPY * * *Final Report* * * DATE OF EXAM: Jul 29 2022 12:00PM [facility] - XR FLUOROSCOPY / PROCEDURE REASON: pain * * * * Physician Interpretation * * * * TECHNIQUE: XR FLUOROSCOPY COMPARISON: No prior study for comparison. TECHNIQUE: 5 limited fluoroscopic images of the lumbar spine CLINICAL INDICATION: pain Fluoroscopic Radiation Summary: Plane A, Air Kerma: 11.0 mGy Dose Area Product (DAP): 1511.3 mGy*cm^2 Fluoro time: 0:24 min:sec IMAGE NUMBER: 5 RESULT: [place] directed at the the lower lumbar spine and sacrum. IMPRESSION: 1. As above. Audio Visual Aids Director: PSCB Transcribe Date/Time: Jul 29 2022 12:07P Dictated by : JONATHON FUNG MD This examination was interpreted and the report reviewed and electronically signed by: JONATHON FUNG MD on Jul 29 2022 12:08PM EST [id number] [facility] Basic metabolic 2000 panelon 07-24-2022 Anion gap [Moles/Vol] 11 mmol/L Normal 9-18 Akr on [facility] Comment on above: Order Comment: Speci men Type: BLOOD SPECIMENOrdering Facility: [facility] Address: [address] [address] Performed By: #### 2 4321-2 ####[facility] LABORATORYCLIA [id number] [place] [address] [place] Calcium [Mass/Vol] 9.0 mg/dL Normal 8.5-10.2 [facility] Comment on above: Order Comment: Speci men Type: BLOOD SPECIMENOrdering Facility: [facility] Address: [address] [place] [address] Performed By: #### 2 4321-2 ####[facility] LABORATORYCLIA [id number] [place] [address] [place] Chloride [Moles/Vol] 100 mmol/L Normal 97-105 [facility] Comment on above: Order Comment: Speci men Type: BLOOD SPECIMENOrdering Facility: [facility] Address: [address] [place] [address] Performed By: #### 2 4321-2 ####[facility] LABORATORYCLIA [id number] [place] [address] [place] CO2 [Moles/Vol] 29 mmol/L Normal 22-30 [facility] Comment on above: Order Comment: Speci men Type: BLOOD SPECIMENOrdering Facility: [facility] Address: [address] [place] [address] Performed By: #### 2 4321-2 ####[facility] LABORATORYCLIA [id number] [place] [address] [place] Creatinine [Mass/Vol] 1.18 mg/dL Normal 0.73-1.22 [facility] Comment on above: Order Comment: Speci men Type: BLOOD SPECIMENOrdering Facility: [facility] Address: [address] [place] [address] Performed By: #### 2 4321-2 ####[facility]ORATORYCLIA [id number] [address] [place] ESTIMATED GLOMERULAR FILTRATION RATE 60 mL/min/1.73m??? Normal >=60 [facility] Comment on above: Order Comment: Elfego gilbert Type: BLOOD SPECIMENOrdering Facility: [facility] Address: [address] [id number] Result Comment: Concepción mated Glomerular Filtration Rate [...] actual GFR. Performed By: #### 2 4321-2 ####[facility] LABORATORYCLIA [id number] [place] [address] [place] Glucose [Mass/Vol] 104 mg/dL High 74-99 [facility] Comment on above: Order Comment: Elfego gilbert Type: BLOOD SPECIMENOrdering Facility: [facility] Address: [address] [place] [address] Result Comment: The [place] Diabetes Association (ADA) provides guidance for cutoff [...] Standards of Medical Care in Diabetes 2016, [place] Of [place] Diabetes Association. Diabetes Care. 2016.39(Suppl 1). Performed By: #### 2 4321-2 ####[facility] LABORATORYCLIA [id number] [place] [address] [place] Potassium [Moles/Vol] 4.3 mmol/L Normal 3.7-5.1 [facility] Comment on above: Order Comment: Elfego gilbert Type: BLOOD SPECIMENOrdering Facility: [facility] Address: [address] Performed By: #### 2 4321-2 ####[facility] LABORATORYCLIA [id number] [place] [address] [place] Sodium [Moles/Vol] 140 mmol/L Normal 136-144 [facility] Comment on above: Order Comment: Speci men Type: BLOOD SPECIMENOrdering Facility: [facility] Address: [address] [place] [address] Performed By: #### 2 4321-2 ####[facility] LABORATORYCLIA [id number] [place] [address] [place] Urea nitrogen [Mass/Vol] 40 mg/dL High 9-24 [facility] Comment on above: Order Comment: Speci men Type: BLOOD SPECIMENOrdering Facility: [facility] Address: [address] [place] [address] Performed By: #### 2 4321-2 ####[facility] LABORATORYCLIA [id number] [place] [address] [place] CNOVon 07-17-2022 CNOV Normal [facility] CNPNon 07-10-2022 CNPN Normal [facility] Basic metabolic 2000 panelon 07-09-2022 Anion gap [Moles/Vol] 7 mmol/L Low 9-18 [facility] Comment on above: Order Comment: Speci men Type: BLOOD SPECIMENOrdering Facility: [facility] Address: [address] [place] [address] Performed By: #### 2 4321-2 ####[facility] LABORATORYCLIA [id number] [place] [address] [place] Calcium [Mass/Vol] 9.1 mg/dL Normal 8.5-10.2 [facility] Comment on above: Order Comment: Speci men Type: BLOOD SPECIMENOrdering Facility: [facility] Address: [address] [place] [address] Performed By: #### 2 4321-2 ####[facility] LABORATORYCLIA [id number] [place] [address] [place] Chloride [Moles/Vol] 97 mmol/L Normal 97-105 [facility] Comment on above: Order Comment: Speci men Type: BLOOD SPECIMENOrdering Facility: [facility] Address: [address] [place] [address] Performed By: #### 2 4321-2 ####[facility] LABORATORYCLIA [id number] [place] [address] [place] CO2 [Moles/Vol] 32 mmol/L High 22-30 [facility] Comment on above: Order Comment: Speci men Type: BLOOD SPECIMENOrdering Facility: [facility] Address: [address] [place] [address] Performed By: #### 2 4321-2 ####[facility]ITALCLIA [id number] [address] STATES [place] [facility] Creatinine [Mass/Vol] 1.04 mg/dL Normal 0.73-1.22 [facility] Comment on above: Order Comment: Speci men Type: BLOOD SPECIMENOrdering Facility: [facility] Address: [address] [place] [address] Performed By: #### 2 4321-2 ####[facility] LABORATORYCLIA [id number] [address] ESTIMATED GLOMERULAR FILTRATION RATE 70 mL/min/1.73m??? Normal >=60 [facility] Comment on above: Order Comment: Speci men Type: BLOOD SPECIMENOrdering Facility: [facility] Address: [address] [place] [address] Result Comment: Concepción mated Glomerular Filtration Rate [...] actual GFR. Performed By: #### 2 4321-2 ####[facility] LABORATORYCLIA [id number] [place] [address] [place] Glucose [Mass/Vol] 96 mg/dL Normal 74-99 [facility] Comment on above: Order Comment: Speci men Type: BLOOD SPECIMENOrdering Facility: [facility] Address: [address] [place] [address] Result Comment: The Citizen [place] Diabetes Association (ADA) provides guidance for cutoff [...] Standards of Medical Care in Diabetes 2016, [place] Diabetes Association. Diabetes Care. 2016.39(Suppl 1). Performed By: #### 2 4321-2 ####[facility] LABORATORYCLIA [id number] [place] [address] [place] Potassium [Moles/Vol] 4.4 mmol/L Normal 3.7-5.1 [facility] Comment on above: Order Comment: Elfego gilbert Type: BLOOD SPECIMENOrdering Facility: [facility] Address: [address] [place] [address] Performed By: #### 2 4321-2 ####[facility] LABORATORYCLIA [id number] [place] [address] [place] Sodium [Moles/Vol] 136 mmol/L Normal 136-144 [facility] Comment on above: Order Comment: Julii men Type: BLOOD SPECIMENOrdering Facility: [facility] Address: [address] [place] [address] Performed By: #### 2 4321-2 ####[facility] LABORATORYCLIA [id number] [place] [address] [place] Urea nitrogen [Mass/Vol] 26 mg/dL High 9-24 [facility] Comment on above: Order Comment: Speci men Type: BLOOD SPECIMENOrdering Facility: [facility] Address: [address] [place] [address] Performed By: #### 2 4321-2 ####[facility]ORATORYCLIA [id number] [address] CASE MANAGEMon 07-09-2022 CASE MANAGEM Normal [facility] CBC W Auto Differential pane l (Bld)on 07-09-2022 Basophils (Bld) [#/Vol] 0.07 10*3/uL Normal <0.11 [facility] Comment on above: Order Comment: Speci men Type: BLOOD SPECIMENOrdering Facility: [facility] Address: [address] [place] [address] Performed By: #### 5 7021-8 ####[facility]ORATORYCLIA [id number] [address] STATES [facility] Basophils/100 WBC (Bld) 1.0 % Normal [facility] Comment on above: Order Comment: Speci men Type: BLOOD SPECIMENOrdering Facility: [facility] Address: [address] [place] [address] Performed By: #### 5 7021-8 ####[facility]ORATORYCLIA [id number] [address] [place] Differential cell count method Nom (Bld) Auto Normal [facility] Comment on above: Order Comment: Speci men Type: BLOOD SPECIMENOrdering Facility: [facility] Address: [address] [place] [address] Performed By: #### 5 7021-8 ####[facility]ORATORYCLIA [id number] [place] [address] [place] Eosinophils (Bld) [#/Vol] 0.13 10*3/uL Normal <0.46 [facility] Comment on above: Order Comment: Speci men Type: BLOOD SPECIMENOrdering Facility: [facility] Address: [address] [address] Performed By: #### 5 7021-8 ####[facility]ORATORYCLIA [id number] [address] Eosinophils/100 WBC (Bld) 1.8 % Normal [facility] Comment on above: Order Comment: Speci men Type: BLOOD SPECIMENOrdering Facility: [facility] Address: [address] [place] [address] Performed By: #### 5 7021-8 ####[facility] LABORATORYCLIA [id number] [address] Erythrocyte distribution width (RBC) [Ratio] 19.8 % High 11.5-15.0 [facility] Comment on above: Order Comment: Speci men Type: BLOOD SPECIMENOrdering Facility: [facility] Address: [address] [place] [address] Performed By: #### 5 7021-8 ####[facility] LABORATORYCLIA [id number] [address] Hematocrit (Bld) [Volume fraction] 26.9 % Low 39.0-51.0 [facility] Comment on above: Order Comment: Speci men Type: BLOOD SPECIMENOrdering Facility: [facility] Address: [address] [place] [address] Performed By: #### 5 7021-8 ####[facility] LABORATORYCLIA [id number] [address] [place] Hemoglobin (Bld) [Mass/Vol] 9.1 g/dL Low 13.0-17.0 [facility] Comment on above: Order Comment: Speci men Type: BLOOD SPECIMENOrdering Facility: [facility] Address: [address] [place] [address] Performed By: #### 5 7021-8 ####[facility] LABORATORYCLIA [id number] [address] IMMATURE GRAN % 0.4 % Normal [facility] Comment on above: Order Comment: Speci men Type: BLOOD SPECIMENOrdering Facility: [facility] Address: [address] [place] [address] Performed By: #### 5 7021-8 ####[facility] LABORATORYCLIA [id number] [address] IMMATURE GRAN ABS 0.03 k/uL Normal <0.10 [facility] Comment on above: Order Comment: Speci men Type: BLOOD SPECIMENOrdering Facility: [facility] Address: [address] [place] [address] Performed By: #### 5 7021-8 ####[facility] LABORATORYCLIA [id number] [address] Lymphocytes (Bld) [#/Vol] 1.31 10*3/uL Normal 1.00-4.00 [facility] Comment on above: Order Comment: Speci men Type: BLOOD SPECIMENOrdering Facility: [facility] Address: [address] [place] [address] Performed By: #### 5 7021-8 ####[facility] LABORATORYCLIA [id number] [address] Lymphocytes/100 WBC (Bld) 18.0 % Normal [facility] Comment on above: Order Comment: Speci men Type: BLOOD SPECIMENOrdering Facility: [facility] Address: [address] [place] [address] Performed By: #### 5 7021-8 ####[facility] LABORATORYCLIA [id number] [address] MCH (RBC) [Entitic mass] 37.4 pg High 26.0-34.0 [facility] Comment on above: Order Comment: Speci men Type: BLOOD SPECIMENOrdering Facility: [facility] Address: [address] [place] [address] Performed By: #### 5 7021-8 ####[facility] LABORATORYCLIA [id number] [address] [place] MCHC (RBC) [Mass/Vol] 33.8 g/dL Normal 30.5-36.0 [facility] Comment on above: Order Comment: Speci men Type: BLOOD SPECIMENOrdering Facility: [facility] Address: [address] [place] [address] Performed By: #### 5 7021-8 ####[facility] LABORATORYCLIA [id number] [address] [place] MCV (RBC) [Entitic vol] 110.7 fL High 80.0-100.0 [facility] Comment on above: Order Comment: Speci men Type: BLOOD SPECIMENOrdering Facility: [facility] Address: [address] [place] [address] Performed By: #### 5 7021-8 ####[facility] LABORATORYCLIA [id number] [place] [address] [place] Monocytes (Bld) [#/Vol] 0.98 10*3/uL High <0.87 [facility] Comment on above: Order Comment: Speci men Type: BLOOD SPECIMENOrdering Facility: [facility] Address: [address] [place] [address] Performed By: #### 5 7021-8 ####[facility] LABORATORYCLIA [id number] [address] [place] Monocytes/100 WBC (Bld) 13.5 % Normal [facility] Comment on above: Order Comment: Speci men Type: BLOOD SPECIMENOrdering Facility: [facility] Address: [address] [place] [address] Performed By: #### 5 7021-8 ####[facility] LABORATORYCLIA [id number] [address] [place] Neutrophils (Bld) [#/Vol] 4.74 10*3/uL Normal 1.45-7.50 [facility] Comment on above: Order Comment: Speci men Type: BLOOD SPECIMENOrdering Facility: [facility] Address: [address] [place] [address] Performed By: #### 5 7021-8 ####[facility] LABORATORYCLIA [id number] [address] [place] Neutrophils/100 WBC (Bld) 65.3 % Normal [facility] Comment on above: Order Comment: Speci men Type: BLOOD SPECIMENOrdering Facility: [facility] Address: [address] [place] [address] Performed By: #### 5 7021-8 ####[facility] LABORATORYCLIA [id number] [place] [address] [place] Nucleated RBC (Bld) [#/Vol] 0.02 10*3/uL High <0.01 [facility] Comment on above: Order Comment: Speci men Type: BLOOD SPECIMENOrdering Facility: [facility] Address: [address] [place] [address] Performed By: #### 5 7021-8 ####[facility] LABORATORYCLIA [id number] [address] [place] Nucleated RBC/100 WBC (Bld) [Ratio] 0.3 /100 WBC Normal [facility] Comment on above: Order Comment: Speci men Type: BLOOD SPECIMENOrdering Facility: [facility] Address: [address] [place] [address] Performed By: #### 5 7021-8 ####[facility] LABORATORYCLIA [id number] [place] [address] [place] Platelet mean volume (Bld) [Entitic vol] 11.3 fL Normal 9.0-12.7 [facility] Comment on above: Order Comment: Speci men Type: BLOOD SPECIMENOrdering Facility: [facility] Address: [address] [place] [address] Performed By: #### 5 7021-8 ####[facility] LABORATORYCLIA [id number] [place] [address] [place] Platelets (Bld) [#/Vol] 236 10*3/uL Normal 150-400 [facility] Comment on above: Order Comment: Speci men Type: BLOOD SPECIMENOrdering Facility: [facility] Address: [address] [place] [address] Performed By: #### 5 7021-8 ####[facility] LABORATORYCLIA [id number] [address] OF [place] [facility] RBC (Bld) [#/Vol] 2.43 10*6/uL Low 4.20-6.00 [facility] Comment on above: Order Comment: Speci men Type: BLOOD SPECIMENOrdering Facility: [facility] Address: [address] [place] [address] Performed By: #### 5 7021-8 ####[facility] LABORATORYCLIA [id number] [address] OF [place] [facility] WBC (Bld) [#/Vol] 7.26 10*3/uL Normal 3.70-11.00 [facility] Comment on above: Order Comment: Speci men Type: BLOOD SPECIMENOrdering Facility: [facility] Address: [address] [place] [address] Performed By: #### 5 7021-8 ####[facility] LABORATORYCLIA [id number] [address] [place] CNDSon 07-09-2022 CNDS Normal [facility] CASE MGT INIT ASSESon 2021 CASE MGT INIT ASSES Normal [facility] CONSULT PROGon 07-08-2022 CONSULT PROG Normal [facility] Magnesium SerPl-mCncon 07-08 Magnesium [Mass/Vol] 1.9 mg/dL Normal 1.7-2.3 [facility] Comment on above: Order Comment: Speci men Type: BLOOD SPECIMENOrdering Facility: [facility] Address: [address] [place] [address] Performed By: #### 1 9123-9, 82688-8 ####[facility] LABORATORYCLIA [id number] [address] Renal function 2000 panelon 07-08-2022 Albumin [Mass/Vol] 4.0 g/dL Normal 3.9-4.9 [facility] Comment on above: Order Comment: Speci men Type: BLOOD SPECIMENOrdering Facility: [facility] Address: [address] [place] [address] Performed By: #### 1 239, 19425-8 ####[facility]ORATORYCLIA [id number] [place] [address] [place] Anion gap [Moles/Vol] 9 mmol/L Normal 9-18 [facility] Comment on above: Order Comment: Speci men Type: BLOOD SPECIMENOrdering Facility: [facility] Address: [address] [place] [address] Performed By: #### 1 23, ####[facility] LABORATORYCLIA [id number] [place] [address] [place] Calcium [Mass/Vol] 9.2 mg/dL Normal 8.5-10.2 [facility] Comment on above: Order Comment: Speci men Type: BLOOD SPECIMENOrdering Facility: [facility] Address: [address] [place] [address] Performed By: #### 1 239, 23882-6 ####[facility] LABORATORYCLIA [id number] [place] [address] [place] Chloride [Moles/Vol] 94 mmol/L Low 97-105 [facility] Comment on above: Order Comment: Speci men Type: BLOOD SPECIMENOrdering Facility: [facility] Address: [address] [place] [address] Performed By: #### 1 239, 99559-1 ####[facility] LABORATORYCLIA [id number] [place] [address] [place] CO2 [Moles/Vol] 32 mmol/L High 22-30 [facility] Comment on above: Order Comment: Speci men Type: BLOOD SPECIMENOrdering Facility: [facility] Address: [address] [place] [address] Performed By: #### 1 91239, 43512-0 ####[facility]ORATORYCLIA [id number] [address] STATES OF [place] [facility] Creatinine [Mass/Vol] 1.09 mg/dL Normal 0.73-1.22 [facility] Comment on above: Order Comment: Elfego gilbert Type: BLOOD SPECIMENOrdering Facility: [facility] Address: [address] [place] [address] Performed By: #### 1 9123-9, 03755-5 ####[facility] LABORATORYIA [id number] [address] ESTIMATED GLOMERULAR FILTRATION RATE 66 mL/min/1.73m??? Normal >=60 [facility] Comment on above: Order Comment: Elfego gilbert Type: BLOOD SPECIMENOrdering Facility: [facility] Address: [address] [place] [address] Result Comment: Concepción mated Glomerular Filtration Rate [...] actual GFR. Performed By: #### 1 9123-9, 21700-6 ####[facility] CORPORATIONIA [id number] [address] STATES [facility] Glucose [Mass/Vol] 103 mg/dL High 74-99 [facility] Comment on above: Order Comment: Elfego gilbert Type: BLOOD SPECIMENOrdering Facility: [facility] Address: [address] [place] [address] Result Comment: The Citizen [place] Diabetes Association (ADA) provides guidance for cutoff [...] Standards of Medical Care in Diabetes 2016, [place] Of [place] Diabetes Association. Diabetes Care. 2016.39(Suppl 1). Performed By: #### 1 9123-9, 37574-7 ####[facility] LABORATORYCLIA [id number] [place] [address] [place] Phosphate [Mass/Vol] 3.7 mg/dL Normal 2.7-4.8 [facility] Comment on above: Order Comment: Speci men Type: BLOOD SPECIMENOrdering Facility: [facility] Address: [address] [place] [address] Performed By: #### 1 91239, 49766-6 ####[facility] LABORATORYCLIA [id number] [place] [address] [place] Potassium [Moles/Vol] 3.9 mmol/L Normal 3.7-5.1 [facility] Comment on above: Order Comment: Speci men Type: BLOOD SPECIMENOrdering Facility: [facility] Address: [address] [place] [address] Performed By: #### 1 91239, 58507-7 ####[facility] LABORATORYCLIA [id number] [address] [place] Sodium [Moles/Vol] 135 mmol/L Low 136-144 [facility] Comment on above: Order Comment: Speci men Type: BLOOD SPECIMENOrdering Facility: [facility] Address: [address] [address] Performed By: #### 1 91239, 74199-7 ####[facility] LABORATORYCLIA [id number] [place] [address] [place] Urea nitrogen [Mass/Vol] 26 mg/dL High 9-24 [facility] Comment on above: Order Comment: Speci men Type: BLOOD SPECIMENOrdering Facility: [facility] Address: [address] [address] Performed By: #### 1 91239, 42547-4 ####[facility] LABORATORYCLIA [id number] [place] [address] [place] CONSULT PROGon 07-07-2022 CONSULT PROG Normal [facility] Renal function 2000 panelon 07-07-2022 Albumin [Mass/Vol] 4.3 g/dL Normal 3.9-4.9 [facility] Comment on above: Order Comment: Speci men Type: BLOOD SPECIMENOrdering Facility: [facility] Address: [address] [place] [address] Performed By: #### 2 4362-6 ####[facility] LABORATORYCLIA [id number] [address] [place] Anion gap [Moles/Vol] 11 mmol/L Normal 9-18 [facility] Comment on above: Order Comment: Speci men Type: BLOOD SPECIMENOrdering Facility: [facility] Address: [address] [place] [address] Performed By: #### 2 4362-6 ####[facility] LABORATORYCLIA [id number] [place] [address] [place] Calcium [Mass/Vol] 8.9 mg/dL Normal 8.5-10.2 [facility] Comment on above: Order Comment: Speci men Type: BLOOD SPECIMENOrdering Facility: [facility] Address: [address] [place] [address] Performed By: #### 2 4362-6 ####[facility] LABORATORYCLIA [id number] [place] [address] [place] Chloride [Moles/Vol] 94 mmol/L Low 97-105 [facility] Comment on above: Order Comment: Speci men Type: BLOOD SPECIMENOrdering Facility: [facility] Address: [address] [place] [address] Performed By: #### 2 4362-6 ####[facility] LABORATORYCLIA [id number] [place] [address] [place] CO2 [Moles/Vol] 33 mmol/L High 22-30 [facility] Comment on above: Order Comment: Elfego gilbert Type: BLOOD SPECIMENOrdering Facility: [facility] Address: [address] [address] Performed By: #### 2 4362-6 ####[facility]ITALCLIA [id number] [address] STATES OF [place] [facility] Creatinine [Mass/Vol] 1.10 mg/dL Normal 0.73-1.22 [facility] Comment on above: Order Comment: Elfego gilbert Type: BLOOD SPECIMENOrdering Facility: [facility] Address: [address] [place] [address] Performed By: #### 2 4362-6 ####[facility] CORPORATIONIA [id number] [address] ESTIMATED GLOMERULAR FILTRATION RATE 65 mL/min/1.73m??? Normal >=60 [facility] Comment on above: Order Comment: Elfego gilbert Type: BLOOD SPECIMENOrdering Facility: [facility] Address: [address] [place] [address] Result Comment: Concepción mated Glomerular Filtration Rate [...] actual GFR. Performed By: #### 2 4362-6 ####[facility] LABORATORYCLIA [id number] [address] [place] Glucose [Mass/Vol] 110 mg/dL High 74-99 [facility] Comment on above: Order Comment: Elfego gilbert Type: BLOOD SPECIMENOrdering Facility: [facility] Address: [address] [place] [address] Result Comment: The [place] Of [place] Diabetes Association (ADA) provides guidance for cutoff [...] Standards of Medical Care in Diabetes 2016, [place] Of [place] Diabetes Association. Diabetes Care. 2016.39(Suppl 1). Performed By: #### 2 4362-6 ####[facility] LABORATORYCLIA [id number] [place] [address] [place] Phosphate [Mass/Vol] 4.0 mg/dL Normal 2.7-4.8 [facility] Comment on above: Order Comment: Elfego gilbert Type: BLOOD SPECIMENOrdering Facility: [facility] Address: [address] [place] [address] Performed By: #### 2 4362-6 ####[facility] LABORATORYCLIA [id number] [place] [address] [place] Potassium [Moles/Vol] 4.0 mmol/L Normal 3.7-5.1 [facility] Comment on above: Order Comment: Elfego gilbert Type: BLOOD SPECIMENOrdering Facility: [facility] Address: [address] [place] [address] Performed By: #### 2 4362-6 ####[facility] LABORATORYCLIA [id number] [place] [address] [place] Sodium [Moles/Vol] 138 mmol/L Normal 136-144 [facility] Comment on above: Order Comment: Julii men Type: BLOOD SPECIMENOrdering Facility: [facility] Address: [address] [place] [address] Performed By: #### 2 4362-6 ####[facility] LABORATORYCLIA [id number] [place] [address] [place] Urea nitrogen [Mass/Vol] 28 mg/dL High 9-24 [facility] Comment on above: Order Comment: Julii men Type: BLOOD SPECIMENOrdering Facility: [facility] Address: [address] [address] Performed By: #### 2 4362-6 ####[facility] LABORATORYCLIA [id number] [place] [address] [place] US DVT LOWER BILon US DVT LOWER RALF Normal [facility] CBC W Auto Differential pane l (Bld)on 07-06-2022 Basophils (Bld) [#/Vol] 0.07 10*3/uL Normal <0.11 [facility] Comment on above: Order Comment: Speci men Type: BLOOD SPECIMENOrdering Facility: [facility] Address: [address] [place] [address] Performed By: #### 5 7021-8 ####[facility] LABORATORYCLIA [id number] [address] [place] Basophils/100 WBC (Bld) 0.9 % Normal [facility] Comment on above: Order Comment: Speci men Type: BLOOD SPECIMENOrdering Facility: [facility] Address: [address] [place] [address] Performed By: #### 5 7021-8 ####[facility] LABORATORYCLIA [id number] [address] [place] Differential cell count method Nom (Bld) Auto Normal [facility] Comment on above: Order Comment: Speci men Type: BLOOD SPECIMENOrdering Facility: [facility] Address: [address] [address] Performed By: #### 5 7021-8 ####[facility] LABORATORYCLIA [id number] [address] [place] Eosinophils (Bld) [#/Vol] 0.15 10*3/uL Normal <0.46 [facility] Comment on above: Order Comment: Speci men Type: BLOOD SPECIMENOrdering Facility: [facility] Address: [address] [address] Performed By: #### 5 7021-8 ####[facility] LABORATORYCLIA [id number] [address] Eosinophils/100 WBC (Bld) 2.0 % Normal [facility] Comment on above: Order Comment: Speci men Type: BLOOD SPECIMENOrdering Facility: [facility] Address: [address] [place] [address] Performed By: #### 5 7021-8 ####[facility] LABORATORYCLIA [id number] [address] Erythrocyte distribution width (RBC) [Ratio] 20.4 % High 11.5-15.0 [facility] Comment on above: Order Comment: Speci men Type: BLOOD SPECIMENOrdering Facility: [facility] Address: [address] [place] [address] Performed By: #### 5 7021-8 ####[facility] LABORATORYCLIA [id number] [address] Hematocrit (Bld) [Volume fraction] 24.8 % Low 39.0-51.0 [facility] Comment on above: Order Comment: Speci men Type: BLOOD SPECIMENOrdering Facility: [facility] Address: [address] [place] [address] Performed By: #### 5 7021-8 ####[facility] LABORATORYCLIA [id number] [address] [place] Hemoglobin (Bld) [Mass/Vol] 8.3 g/dL Low 13.0-17.0 [facility] Comment on above: Order Comment: Speci men Type: BLOOD SPECIMENOrdering Facility: [facility] Address: [address] [place] [address] Performed By: #### 5 7021-8 ####[facility] LABORATORYCLIA [id number] [address] IMMATURE GRAN % 0.5 % Normal [facility] Comment on above: Order Comment: Speci men Type: BLOOD SPECIMENOrdering Facility: [facility] Address: [address] [place] [address] Performed By: #### 5 7021-8 ####[facility] LABORATORYCLIA [id number] [address] IMMATURE GRAN ABS 0.04 k/uL Normal <0.10 [facility] Comment on above: Order Comment: Speci men Type: BLOOD SPECIMENOrdering Facility: [facility] Address: [address] [place] [address] Performed By: #### 5 7021-8 ####[facility] LABORATORYCLIA [id number] [address] Lymphocytes (Bld) [#/Vol] 1.35 10*3/uL Normal 1.00-4.00 [facility] Comment on above: Order Comment: Speci men Type: BLOOD SPECIMENOrdering Facility: [facility] Address: [address] [place] [address] Performed By: #### 5 7021-8 ####[facility] LABORATORYCLIA [id number] [address] Lymphocytes/100 WBC (Bld) 18.1 % Normal [facility] Comment on above: Order Comment: Speci men Type: BLOOD SPECIMENOrdering Facility: [facility] Address: [address] [place] [address] Performed By: #### 5 7021-8 ####[facility] LABORATORYCLIA [id number] [address] MCH (RBC) [Entitic mass] 37.2 pg High 26.0-34.0 [facility] Comment on above: Order Comment: Speci men Type: BLOOD SPECIMENOrdering Facility: [facility] Address: [address] [place] [address] Performed By: #### 5 7021-8 ####[facility] LABORATORYCLIA [id number] [address] MCHC (RBC) [Mass/Vol] 33.5 g/dL Normal 30.5-36.0 [facility] Comment on above: Order Comment: Speci men Type: BLOOD SPECIMENOrdering Facility: [facility] Address: [address] [place] [address] Performed By: #### 5 7021-8 ####[facility] LABORATORYCLIA [id number] [address] [place] MCV (RBC) [Entitic vol] 111.2 fL High 80.0-100.0 [facility] Comment on above: Order Comment: Speci men Type: BLOOD SPECIMENOrdering Facility: [facility] Address: [address] [place] [address] Performed By: #### 5 7021-8 ####[facility] LABORATORYCLIA [id number] [address] [place] Monocytes (Bld) [#/Vol] 1.13 10*3/uL High <0.87 [facility] Comment on above: Order Comment: Speci men Type: BLOOD SPECIMENOrdering Facility: [facility] Address: [address] [place] [address] Performed By: #### 5 7021-8 ####[facility] LABORATORYCLIA [id number] [address] STATES [facility] Monocytes/100 WBC (Bld) 15.1 % Normal [facility] Comment on above: Order Comment: Speci men Type: BLOOD SPECIMENOrdering Facility: [facility] Address: [address] [place] [address] Performed By: #### 5 7021-8 ####[facility] LABORATORYCLIA [id number] [address] [place] Neutrophils (Bld) [#/Vol] 4.73 10*3/uL Normal 1.45-7.50 [facility] Comment on above: Order Comment: Speci men Type: BLOOD SPECIMENOrdering Facility: [facility] Address: [address] [place] [address] Performed By: #### 5 7021-8 ####[facility] LABORATORYCLIA [id number] [place] [address] [place] Neutrophils/100 WBC (Bld) 63.4 % Normal [facility] Comment on above: Order Comment: Speci men Type: BLOOD SPECIMENOrdering Facility: [facility] Address: [address] [place] [address] Performed By: #### 5 7021-8 ####[facility] LABORATORYCLIA [id number] [place] [address] [place] Nucleated RBC (Bld) [#/Vol] 0.03 10*3/uL High <0.01 [facility] Comment on above: Order Comment: Speci men Type: BLOOD SPECIMENOrdering Facility: [facility] Address: [address] [place] [address] Performed By: #### 5 7021-8 ####[facility] LABORATORYCLIA [id number] [address] [place] Nucleated RBC/100 WBC (Bld) [Ratio] 0.4 /100 WBC Normal [facility] Comment on above: Order Comment: Speci men Type: BLOOD SPECIMENOrdering Facility: [facility] Address: [address] [place] [address] Performed By: #### 5 7021-8 ####[facility] LABORATORYCLIA [id number] [place] [address] [place] Platelet mean volume (Bld) [Entitic vol] 11.3 fL Normal 9.0-12.7 [facility] Comment on above: Order Comment: Speci men Type: BLOOD SPECIMENOrdering Facility: [facility] Address: [address] [place], [place] [address] Performed By: #### 5 7021-8 ####[facility] LABORATORYCLIA [id number] [place] [address] [place] Platelets (Bld) [#/Vol] 218 10*3/uL Normal 150-400 [facility] Comment on above: Order Comment: Speci men Type: BLOOD SPECIMENOrdering Facility: [facility] Address: [address] [place], [place] [address] Performed By: #### 5 7021-8 ####[facility] LABORATORYCLIA [id number] [address] OF [facility] RBC (Bld) [#/Vol] 2.23 10*6/uL Low 4.20-6.00 [facility] Comment on above: Order Comment: Speci men Type: BLOOD SPECIMENOrdering Facility: [facility] Address: [address] [place] [address] Performed By: #### 5 7021-8 ####[facility] LABORATORYCLIA [id number] [address] WBC (Bld) [#/Vol] 7.47 10*3/uL Normal 3.70-11.00 [facility] Comment on above: Order Comment: Speci men Type: BLOOD SPECIMENOrdering Facility: [facility] Address: [address] [place] [address] Performed By: #### 5 7021-8 ####[facility] LABORATORYCLIA [id number] [address] CONSULT PROGon 07-06-2022 CONSULT PROG Normal [facility] Folate SerPl-mCncon 07-06-20 22 Folate [Mass/Vol] ng/mL Normal >4.7 [facility] Comment on above: Order Comment: Speci men Type: BLOOD SPECIMENOrdering Facility: [facility] Address: [address] [place] [address] Result Comment: A re sult of > 20 ng/mL is not necessarily indicative of a pathologic or treatable condition: it reflects a limitation of the test methodology.Assay reference range: 4.8 to 24.2 ng/mL. Suitable for detection of folate deficiency.Reference:Folate III (Folate III) [package insert V 1.0 [place]]. [facility], [place], [place]: September 2015. Performed By: #### 2 4362-6, 53298-5, 2284-8 ####[facility] LABORATORYCLIA [id number] [address] OF [facility] Lipid 1996 panelon 2 Cholesterol [Mass/Vol] 75 mg/dL Normal <200 [facility] Comment on above: Order Comment: Elfego vladimir Type: BLOOD SPECIMENOrdering Facility: [facility] Address: [address] [place] [address] Result Comment: <200 mg/dL, Desirable 200-239 mg/dL, Borderline high>239 mg/dL, High Performed By: #### 2 4362-6, 57720-8, 2284-06 ####[facility] LABORATORYCLIA [id number] [place], [place] [address] [place] [address] Cholesterol in HDL [Mass/Vol] 44 mg/dL Normal >39 [facility] Comment on above: Order Comment: Elfego vladimir Type: BLOOD SPECIMENOrdering Facility: [facility] Address: [address] [place] [address] Result Comment: 40-5 9 mg/dL, Acceptable>59 mg/dL, High: Negative risk factor for coronary heart disease<40 mg/dL, Low: Positive risk factor for coronary heart disease Performed By: #### 2 4362-6, 24336-8, 2284-06 ####[facility] LABORATORYCLIA [id number] [address] Cholesterol in LDL [Mass/Vol] 23 mg/dL Normal <100 [facility] Comment on above: Order Comment: Elfego vladimir Type: BLOOD SPECIMENOrdering Facility: [facility] Address: [address] [place] [address] Result Comment: <100 mg/dL, Optimal 100-129 mg/dL, Near optimal/above optimal 130-159 mg/dL, Borderline high 160-189 mg/dL, High>189 mg/dL, Very highSecondary prevention optimal LDL Cholesterol levels are recommended to be < 70 mg/dL Performed By: #### 2 4362-6, 60430-8, 2284-06 ####[facility] LABORATORYCLIA [id number] [place], [place] [address] [place] [address] [place] Cholesterol in LDL/Cholesterol in HDL [Mass ratio] 0.52 {ratio} Normal <2.54 [facility] Comment on above: Order Comment: Speci men Type: BLOOD SPECIMENOrdering Facility: [facility] Address: [address] [place] [address] Result Comment: Katie barrientos:1. National Cholesterol Education Program ATP III Guideline At-A-Glance Quick Desk Reference: National Heart, Lung, and Blood [place]. National Institutes of Health. 2001: NIH Publication No. 01-3305.2. An International Atherosclerosis Society position paper: global recommendations for the management of dyslipidemia: executive summary, Atherosclerosis. 2014: 232(2):410-413. Performed By: #### 2 4362-6, 08057-8, 2284-06 ####[facility] LABORATORYCLIA [id number] [address] [place] Cholesterol in VLDL [Mass/Vol] 8 mg/dL Normal <30 [facility] Comment on above: Order Comment: Julii vladimir Type: BLOOD SPECIMENOrdering Facility: [facility] Address: [address] [place] [address] Performed By: #### 2 4362-6, 18911-7, 2284-06 ####[facility] LABORATORYCLIA [id number] [address] [place] Cholesterol non HDL [Mass/Vol] 31 mg/dL Normal <130 [facility] Comment on above: Order Comment: Speci vladimir Type: BLOOD SPECIMENOrdering Facility: [facility] Address: [address] [place] [address] Result Comment: <130 mg/dL, Optimal 130-159 mg/dL, Near optimal/above optimal 160-189 mg/dL, Borderline high 190-219 mg/dL, High>219 mg/dL, Very highSecondary prevention optimal non HDL Cholesterol levels are recommended to be <100 mg/dL Performed By: #### 2 4362-6, 10904-5, 2284-06 ####[facility] LABORATORYCLIA [id number] [place], [place] [address] [place] [address] [place] Cholesterol.total/Chol esterol in HDL [Mass ratio] 1.70 {ratio} Normal <5.10 [facility] Comment on above: Order Comment: Speci men Type: BLOOD SPECIMENOrdering Facility: [facility] Address: [address] [place] [address] Performed By: #### 2 4362-6, 03550-6, 2284-06 ####[facility] LABORATORYCLIA [id number] [address] OF [facility] FASTING TIME Not indicated Normal [facility] Comment on above: Order Comment: Speci men Type: BLOOD SPECIMENOrdering Facility: [facility] Address: [address] [place] [address] Performed By: #### 2 4362-6, 81037-5, 2284-06 ####[facility] LABORATORYCLIA [id number] [address] STATES OF [facility] Triglyceride [Mass/Vol] 38 mg/dL Normal <150 [facility] Comment on above: Order Comment: Speci men Type: BLOOD SPECIMENOrdering Facility: [facility] Address: [address] [place] [address] Result Comment: <150 mg/dL, Normal 150-199 mg/dL, Borderline high 200-499 mg/dL, High>499 mg/dL, Very high Performed By: #### 2 4362-6, 39891-4, 2284-06 ####[facility] LABORATORYCLIA [id number] [address] OF [facility] Renal function 2000 panelon 07-06-2022 Albumin [Mass/Vol] 3.7 g/dL Low 3.9-4.9 [facility] Comment on above: Order Comment: Speci men Type: BLOOD SPECIMENOrdering Facility: [facility] Address: [address] [place] [address] Performed By: #### 2 4362-6, 02907-7, 2284-06 ####[facility] LABORATORYCLIA [id number] [address] [place] Anion gap [Moles/Vol] 8 mmol/L Low 9-18 [facility] Comment on above: Order Comment: Speci men Type: BLOOD SPECIMENOrdering Facility: [facility] Address: [address] [place] [address] Performed By: #### 2 4362-6, 64913-2, 2284-06 ####[facility] LABORATORYCLIA [id number] [place] [address] [place] Calcium [Mass/Vol] 8.9 mg/dL Normal 8.5-10.2 [facility] Comment on above: Order Comment: Speci men Type: BLOOD SPECIMENOrdering Facility: [facility] Address: [address] [place] [address] Performed By: #### 2 4362-6, 70623-8, 2284-06 ####[facility] LABORATORYCLIA [id number] [place] [address] [place] Chloride [Moles/Vol] 99 mmol/L Normal 97-105 [facility] Comment on above: Order Comment: Speci men Type: BLOOD SPECIMENOrdering Facility: [facility] Address: [address] [place] [address] Performed By: #### 2 4362-6, 29906-0, 2284-06 ####[facility] LABORATORYCLIA [id number] [place] [address] [place] CO2 [Moles/Vol] 33 mmol/L High 22-30 [facility] Comment on above: Order Comment: Speci men Type: BLOOD SPECIMENOrdering Facility: [facility] Address: [address] [place], [place] [address] Performed By: #### 2 4362-6, 57065-0, 2284-06 ####[facility] LABORATORYCLIA [id number] [place] [address] [place] Creatinine [Mass/Vol] 1.11 mg/dL Normal 0.73-1.22 [facility] Comment on above: Order Comment: Speci men Type: BLOOD SPECIMENOrdering Facility: [facility] Address: [address] [place] [address] Performed By: #### 2 4362-6, 13680-6, 2284-06 ####[facility] CORPORATIONIA [id number] [place] [address] [place] ESTIMATED GLOMERULAR FILTRATION RATE 65 mL/min/1.73m??? Normal >=60 [facility] Comment on above: Order Comment: Elfego gilbert Type: BLOOD SPECIMENOrdering Facility: [facility] Address: [address] [place] [address] Result Comment: Concepción mated Glomerular Filtration Rate [...] actual GFR. Performed By: #### 2 4362-6, 24460-9, 2284-06 ####[facility] CORPORATIONIA [id number] [place] [id number] [place] Glucose [Mass/Vol] 98 mg/dL Normal 74-99 [facility] Comment on above: Order Comment: Elfego vladimir Type: BLOOD SPECIMENOrdering Facility: [facility] Address: [address] [place] [address] Result Comment: The Citizen [place] Diabetes Association (ADA) provides guidance for cutoff [...] Standards of Medical Care in Diabetes 2016, [place] Of [place] Diabetes Association. Diabetes Care. 2016.39(Suppl 1). Performed By: #### 2 4362-6, 23783-5, 2284-06 ####[facility] LABORATORYCLIA [id number] [place] [facility] [place] Phosphate [Mass/Vol] 4.0 mg/dL Normal 2.7-4.8 [facility] Comment on above: Order Comment: Speci men Type: BLOOD SPECIMENOrdering Facility: [facility] Address: [address] [place] [address] Performed By: #### 2 4362-6, 08677-7, 8 ####[facility] LABORATORYCLIA [id number] [address] STATES OF [facility] Potassium [Moles/Vol] 4.0 mmol/L Normal 3.7-5.1 [facility] Comment on above: Order Comment: Speci men Type: BLOOD SPECIMENOrdering Facility: [facility] Address: [address] [place] [address] Performed By: #### 2 4362-6, 72261-2, 2284-06 ####[facility] LABORATORYCLIA [id number] [address] Sodium [Moles/Vol] 140 mmol/L Normal 136-144 [facility] Comment on above: Order Comment: Speci men Type: BLOOD SPECIMENOrdering Facility: [facility] Address: [address] [place] [address] Performed By: #### 2 4362-6, 62126-7, 2284-06 ####[facility] LABORATORYCLIA [id number] [address] STATES OF [facility] Urea nitrogen [Mass/Vol] 28 mg/dL High 9-24 [facility] Comment on above: Order Comment: Speci men Type: BLOOD SPECIMENOrdering Facility: [facility] Address: [address] [place] [address] Performed By: #### 2 4362-6, 49419-8, 8 ####[facility] LABORATORYCLIA [id number] [address] STATES [place] CBC W Auto Differential pane l (Bld)on 07-05-2022 Basophils (Bld) [#/Vol] 0.04 10*3/uL Normal <0.11 [facility] Comment on above: Order Comment: Speci men Type: BLOOD SPECIMENOrdering Facility: [facility] Address: [address] [place] [address] Performed By: #### 1 6-0, 23962-6 ####[facility]ORATORYCLIA [id number] [address] [place] Basophils/100 WBC (Bld) 0.5 % Normal [facility] Comment on above: Order Comment: Speci men Type: BLOOD SPECIMENOrdering Facility: [facility] Address: [address] [place] [address] Performed By: #### 1 0, 21999-0 ####[facility]ORATORYCLIA [id number] [address] [place] Differential cell count method Nom (Bld) Auto Normal [facility] Comment on above: Order Comment: Speci men Type: BLOOD SPECIMENOrdering Facility: [facility] Address: [address] [place] [address] Performed By: #### 1 0, 26607-7 ####[facility]ORATORYCLIA [id number] [place] [address] [place] Eosinophils (Bld) [#/Vol] 0.12 10*3/uL Normal <0.46 [facility] Comment on above: Order Comment: Speci men Type: BLOOD SPECIMENOrdering Facility: [facility] Address: [address] [place] [address] Performed By: #### 1 6-0, ####[facility]ORATORYCLIA [id number] [address] [place] Eosinophils/100 WBC (Bld) 1.5 % Normal [facility] Comment on above: Order Comment: Speci men Type: BLOOD SPECIMENOrdering Facility: [facility] Address: [address] [place] [address] Performed By: #### 1 4195-0, 24522-1 ####[facility] LABORATORYCLIA [id number] [address] [facility] Erythrocyte distribution width (RBC) [Ratio] 20.3 % High 11.5-15.0 [facility] Comment on above: Order Comment: Speci men Type: BLOOD SPECIMENOrdering Facility: [facility] [facility] Address: [address] [place] [address] Performed By: #### 1 4196-0, 64986-3 ####[facility] LABORATORYCLIA [id number] [address] OF [place] [facility] Hematocrit (Bld) [Volume fraction] 25.5 % Low 39.0-51.0 [facility] Comment on above: Order Comment: Speci men Type: BLOOD SPECIMENOrdering Facility: [facility] Address: [address] [place] [address] Performed By: #### 1 4196-0, 86149-6 ####[facility] [id number] [address] Hemoglobin (Bld) [Mass/Vol] 8.4 g/dL Low 13.0-17.0 [facility] Comment on above: Order Comment: Speci men Type: BLOOD SPECIMENOrdering Facility: [facility] Address: [address] [place] [address] Performed By: #### 1 4196-0, 10120-0 ####[facility] LABORATORYCLIA [id number] [address] IMMATURE GRAN % 0.4 % Normal [facility] Comment on above: Order Comment: Speci men Type: BLOOD SPECIMENOrdering Facility: [facility] Address: [address] [place] [address] Performed By: #### 1 4196-0, 74338-3 ####[facility] LABORATORYCLIA [id number] [address] IMMATURE GRAN ABS 0.03 k/uL Normal <0.10 [facility] Comment on above: Order Comment: Speci men Type: BLOOD SPECIMENOrdering Facility: [facility] Address: [address] [place] [address] Performed By: #### 1 4196-0, 83340-2 ####[facility] LABORATORYCLIA [id number] [address] Lymphocytes (Bld) [#/Vol] 1.10 10*3/uL Normal 1.00-4.00 [facility] Comment on above: Order Comment: Speci men Type: BLOOD SPECIMENOrdering Facility: [facility] Address: [address] [place] [address] Performed By: #### 1 4196-0, 31980-3 ####[facility] LABORATORYCLIA [id number] [address] Lymphocytes/100 WBC (Bld) 13.6 % Normal [facility] Comment on above: Order Comment: Speci men Type: BLOOD SPECIMENOrdering Facility: [facility] Address: [address] [place] [address] Performed By: #### 1 4196-0, 35897-4 ####[facility] LABORATORYCLIA [id number] [address] [place] MCH (RBC) [Entitic mass] 37.2 pg High 26.0-34.0 [facility] Comment on above: Order Comment: Speci men Type: BLOOD SPECIMENOrdering Facility: [facility] Address: [address] [place] [address] Performed By: #### 1 4196-0, 11990-1 ####[facility] LABORATORYCLIA [id number] [address] [place] MCHC (RBC) [Mass/Vol] 32.9 g/dL Normal 30.5-36.0 [facility] Comment on above: Order Comment: Speci men Type: BLOOD SPECIMENOrdering Facility: [facility] Address: [address] [place] [address] Performed By: #### 1 4196-0, 45503-8 ####[facility]ORATORYCLIA [id number] [place] [address] [place] MCV (RBC) [Entitic vol] 112.8 fL High 80.0-100.0 [facility] Comment on above: Order Comment: Speci men Type: BLOOD SPECIMENOrdering Facility: [facility] Address: [address] [place] [address] Performed By: #### 1 4196-0, 38062-1 ####[facility] LABORATORYCLIA [id number] [place] [address] [place] Monocytes (Bld) [#/Vol] 1.12 10*3/uL High <0.87 [facility] Comment on above: Order Comment: Speci men Type: BLOOD SPECIMENOrdering Facility: [facility] Address: [address] [place] [address] Performed By: #### 1 4196-0, 75852-7 ####[facility] LABORATORYCLIA [id number] [address] [place] Monocytes/100 WBC (Bld) 13.9 % Normal [facility] Comment on above: Order Comment: Speci men Type: BLOOD SPECIMENOrdering Facility: [facility] Address: [address] [place] [address] Performed By: #### 1 4196-0, 44915-5 ####[facility] LABORATORYCLIA [id number] [address] [place] Neutrophils (Bld) [#/Vol] 5.66 10*3/uL Normal 1.45-7.50 [facility] Comment on above: Order Comment: Speci men Type: BLOOD SPECIMENOrdering Facility: [facility] Address: [address] [place] [address] Performed By: #### 1 4196-0, 61667-4 ####[facility] LABORATORYCLIA [id number] [address] [place] Neutrophils/100 WBC (Bld) 70.1 % Normal [facility] Comment on above: Order Comment: Speci men Type: BLOOD SPECIMENOrdering Facility: [facility] Address: [address] [address] Performed By: #### 1 4196-0, 73046-6 ####[facility] LABORATORYCLIA [id number] [address] [place] Nucleated RBC (Bld) [#/Vol] 0.03 10*3/uL High <0.01 [facility] Comment on above: Order Comment: Speci men Type: BLOOD SPECIMENOrdering Facility: [facility] Address: [address] [address] Performed By: #### 1 4196-0, 89086-0 ####[facility] LABORATORYCLIA [id number] [address] [place] Nucleated RBC/100 WBC (Bld) [Ratio] 0.4 /100 WBC Normal [facility] Comment on above: Order Comment: Speci men Type: BLOOD SPECIMENOrdering Facility: [facility] Address: [address] [address] Performed By: #### 1 4196-0, 03856-1 ####[facility] LABORATORYCLIA [id number] [address] [place] Platelet mean volume (Bld) [Entitic vol] 11.5 fL Normal 9.0-12.7 [facility] Comment on above: Order Comment: Speci men Type: BLOOD SPECIMENOrdering Facility: [facility] Address: [address] Performed By: #### 1 4196-0, 59917-3 ####[facility] LABORATORYCLIA [id number] [place] [address] [place] Platelets (Bld) [#/Vol] 236 10*3/uL Normal 150-400 [facility] Comment on above: Order Comment: Speci men Type: BLOOD SPECIMENOrdering Facility: [facility] Address: [address] Performed By: #### 1 4196-0, 17605-0 ####[facility] LABORATORYCLIA [id number] [place] [address] [place] RBC (Bld) [#/Vol] 2.26 10*6/uL Low 4.20-6.00 [facility] Comment on above: Order Comment: Speci men Type: BLOOD SPECIMENOrdering Facility: [facility] Address: [address] [place] [address] Performed By: #### 1 4196-0, 77827-5 ####[facility] LABORATORYCLIA [id number] [address] [place] [facility] WBC (Bld) [#/Vol] 8.07 10*3/uL Normal 3.70-11.00 [facility] Comment on above: Order Comment: Speci men Type: BLOOD SPECIMENOrdering Facility: [facility] Address: [address] [place] [address] Performed By: #### 1 4196-0, 65350-9 ####[facility] LABORATORYCLIA [id number] [address] [place] CONSULTon 07-05-2022 CONSULT Normal [facility] Comprehensive metabolic 2000 panelon 07-05-2022 Albumin [Mass/Vol] 3.7 g/dL Low 3.9-4.9 [facility] Comment on above: Order Comment: Speci men Type: BLOOD SPECIMENOrdering Facility: [facility] Address: [address] [place] [address] Performed By: #### 2 4323-8, 57085-1 ####[facility] LABORATORYCLIA [id number] [address] [place] ALP [Catalytic activity/Vol] 83 U/L Normal 38-113 [facility] Comment on above: Order Comment: Speci men Type: BLOOD SPECIMENOrdering Facility: [facility] Address: [address] [place] [address] Performed By: #### 2 4323-8, 19632-7 ####[facility] LABORATORYCLIA [id number] [address] [place] ALT With P-5'-P [Catalytic activity/Vol] 21 U/L Normal 10-54 [facility] Comment on above: Order Comment: Speci men Type: BLOOD SPECIMENOrdering Facility: [facility] Address: [address] [place] [address] Performed By: #### 2 4323-8, ####[facility] LABORATORYCLIA [id number] [address] STATES OF [place] [facility] Anion gap [Moles/Vol] 8 mmol/L Low 9-18 [facility] Comment on above: Order Comment: Speci men Type: BLOOD SPECIMENOrdering Facility: [facility] Address: [address] [place] [address] Performed By: #### 2 4328, ####[facility] LABORATORYCLIA [id number] [address] STATES [place] [facility] AST With P-5'-P [Catalytic activity/Vol] 24 U/L Normal 14-40 [facility] Comment on above: Order Comment: Speci men Type: BLOOD SPECIMENOrdering Facility: [facility] Address: [address] [place] [address] Performed By: #### 2 4323-8, ####[facility] LABORATORYCLIA [id number] [place] [address] [place] Bilirubin [Mass/Vol] 1.4 mg/dL High 0.2-1.3 [facility] Comment on above: Order Comment: Speci men Type: BLOOD SPECIMENOrdering Facility: [facility] Address: [address] [place] [address] Performed By: #### 2 432-8, ####[facility] LABORATORYCLIA [id number] [address] [place] Calcium [Mass/Vol] 8.5 mg/dL Normal 8.5-10.2 [facility] Comment on above: Order Comment: Speci men Type: BLOOD SPECIMENOrdering Facility: [facility] Address: [address] [address] Performed By: #### 2 4323-8, ####[facility] LABORATORYCLIA [id number] [place] [address] [place] Chloride [Moles/Vol] 101 mmol/L Normal 97-105 [facility] Comment on above: Order Comment: Speci men Type: BLOOD SPECIMENOrdering Facility: [facility] Address: [address] [place] [address] Performed By: #### 2 4323-8, ####[facility] LABORATORYCLIA [id number] [place] [address] [place] CO2 [Moles/Vol] 31 mmol/L High 22-30 [facility] Comment on above: Order Comment: Speci men Type: BLOOD SPECIMENOrdering Facility: [facility] Address: [address] [place] [address] Performed By: #### 2 4323-8, ####[facility] LABORATORYCLIA [id number] [place] [address] [place] Creatinine [Mass/Vol] 1.06 mg/dL Normal 0.73-1.22 [facility] Comment on above: Order Comment: Speci men Type: BLOOD SPECIMENOrdering Facility: [facility] Address: [address] [place] [address] Performed By: #### 2 4323-8, ####[facility] LABORATORYCLIA [id number] [address] [place] ESTIMATED GLOMERULAR FILTRATION RATE 68 mL/min/1.73m??? Normal >=60 [facility] Comment on above: Order Comment: Speci men Type: BLOOD SPECIMENOrdering Facility: [facility] Address: [address] [place] [address] Result Comment: Concepción mated Glomerular Filtration Rate [...] actual GFR. Performed By: #### 2 4328, ####[facility] LABORATORYCLIA [id number] [place] [address] [place] Glucose [Mass/Vol] 97 mg/dL Normal 74-99 [facility] Comment on above: Order Comment: Specjason gilbert Type: BLOOD SPECIMENOrdering Facility: [facility] Address: [address] [id number] Result Comment: The [place] Diabetes Association (ADA) provides guidance for cutoff [...] Standards of Medical Care in Diabetes 2016, [place] Diabetes Association. Diabetes Care. 2016.39(Suppl 1). Performed By: #### 2 43201-14, ####[facility] LABORATORYCLIA [id number] [place] [id number] [place] Potassium [Moles/Vol] 3.9 mmol/L Normal 3.7-5.1 [facility] Comment on above: Order Comment: Elfego gilbert Type: BLOOD SPECIMENOrdering Facility: [facility] Address: [address] [place] [address] Performed By: #### 2 43201-14, ####[facility] LABORATORYCLIA [id number] [place] [address] [place] Protein [Mass/Vol] 5.6 g/dL Low 6.3-8.0 [facility] Comment on above: Order Comment: Speci men Type: BLOOD SPECIMENOrdering Facility: [facility] Address: [address] [place] [address] Performed By: #### 2 4323-8, ####[facility] LABORATORYCLIA [id number] [address] STATES [facility] Sodium [Moles/Vol] 140 mmol/L Normal 136-144 [facility] Comment on above: Order Comment: Speci men Type: BLOOD SPECIMENOrdering Facility: [facility] Address: [address] [place] [address] Performed By: #### 2 8, ####[facility] LABORATORYCLIA [id number] [address] Urea nitrogen [Mass/Vol] 25 mg/dL High 9-24 [facility] Comment on above: Order Comment: Speci men Type: BLOOD SPECIMENOrdering Facility: [facility] Address: [address] [place] [address] Performed By: #### 2 8, ####[facility] LABORATORYCLIA [id number] [address] HISTORY PHYSICALon HISTORY PHYSICAL Normal [facility] Magnesium SerPl-mCncon 07-05 Magnesium [Mass/Vol] 1.9 mg/dL Normal 1.7-2.3 [facility] Comment on above: Order Comment: Speci men Type: BLOOD SPECIMENOrdering Facility: [facility] Address: [address] [place] [address] Performed By: #### 2 4323-8, ####[facility] LABORATORYCLIA [id number] [address] Retics #on 07-05-2022 Reticulocytes (Bld) [#/Vol] 0.26468 10*3/uL Normal 0.018-0.10 0 [facility] Comment on above: Order Comment: Speci men Type: BLOOD SPECIMENOrdering Facility: [facility] Address: [address] [place] [address] Performed By: #### 1 4196-0, 65752-4 ####[facility] LABORATORYCLIA [id number] [address] [place] Reticulocytes (Bld) [#/Vol]o n 07-05-2022 Reticulocytes/100 RBC (Bld) 1.8 % Normal 0.4-2.0 [facility] Comment on above: Order Comment: Speci men Type: BLOOD SPECIMENOrdering Facility: [facility] Address: [address] [place] [address] Performed By: #### 1 4196-0, 45945-7 ####[facility] LABORATORYCLIA [id number] [place] [address] [place] US DOPPLER LTDon 07-05-2022 US DOPPLER LTD Normal [facility] US SCROTUM AND CONTENTSon US SCROTUM AND CONTENTS Normal [facility] Urinalysis complete panel (U )on 07-05-2022 Bilirubin Ql (U) Negative Normal Negative [facility] Comment on above: Order Comment: Speci men Type: URINE SPECIMENOrdering Facility: [facility] Address: [address] [place] [address] Performed By: #### 2 4356-8 ####[facility] LABORATORYCLIA [id number] [place] [address] [place] Clarity (Unsp spec) Clear Normal Clear [facility] Comment on above: Order Comment: Speci men Type: URINE SPECIMENOrdering Facility: [facility] Address: [address] [place] [address] Performed By: #### 2 4356-8 ####[facility] LABORATORYCLIA [id number] [address] [place] Color (U) Colorless Normal yellow [facility] Comment on above: Order Comment: Speci men Type: URINE SPECIMENOrdering Facility: [facility] Address: [address] [address] Performed By: #### 2 4356-8 ####[facility] LABORATORYCLIA [id number] [address] Glucose Test strip (U) [Mass/Vol] Negative Normal Negative [facility] Comment on above: Order Comment: Speci men Type: URINE SPECIMENOrdering Facility: [facility] Address: [address] [address] Performed By: #### 2 4356-8 ####[facility] LABORATORYCLIA [id number] [address] [place] Hemoglobin Ql (U) Negative Normal Negative [facility] Comment on above: Order Comment: Speci men Type: URINE SPECIMENOrdering Facility: [facility] Address: [address] [place] [address] Performed By: #### 2 4356-8 ####[facility] LABORATORYCLIA [id number] [address] Hyaline casts (Urine sed) [#/Area] 1-3 /LPF Abnormal 0 /LPF [facility] Comment on above: Order Comment: Speci men Type: URINE SPECIMENOrdering Facility: [facility] Address: [address] [place] [address] Performed By: #### 2 4356-8 ####[facility] LABORATORYCLIA [id number] [address] Ketones Ql (U) Negative Normal Negative [facility] Comment on above: Order Comment: Speci men Type: URINE SPECIMENOrdering Facility: [facility] Address: [address] [place] [address] Performed By: #### 2 4356-8 ####[facility] LABORATORYCLIA [id number] [address] Leukocyte esterase Test strip Ql (U) Negative Normal Negative [facility] Comment on above: Order Comment: Speci men Type: URINE SPECIMENOrdering Facility: [facility] Address: [address] [address] Performed By: #### 2 4356-8 ####[facility] LABORATORYCLIA [id number] [address] STATES [facility] Nitrite Ql (U) Negative Normal Negative [facility] Comment on above: Order Comment: Speci men Type: URINE SPECIMENOrdering Facility: [facility] Address: [address] [place] [address] Performed By: #### 2 4356-8 ####[facility] LABORATORYCLIA [id number] [address] [place] pH (U) 5.0 [pH] Normal 5.0-8.0 [facility] Comment on above: Order Comment: Speci men Type: URINE SPECIMENOrdering Facility: [facility] Address: [address] [place] [address] Performed By: #### 2 4356-8 ####[facility]CL[facility] [id number] [address] Protein (U) [Mass/Vol] Negative Normal Negative [facility] Comment on above: Order Comment: Speci men Type: URINE SPECIMENOrdering Facility: [facility] Address: [address] [place] [address] Performed By: #### 2 4356-8 ####[facility]ITALCLIA [id number] [address] [place] RBC LM.HPF (Urine sed) [#/Area] 0-3 /HPF Normal 0-3 /HPF [facility] Comment on above: Order Comment: Speci men Type: URINE SPECIMENOrdering Facility: [facility] Address: [address] [place] [address] Performed By: #### 2 4356-8 ####[facility] LABORATORYCLIA [id number] [address] [place] Specific gravity (U) [Rel density] 1.008 Normal 1.005-1.03 0 [facility] Comment on above: Order Comment: Speci men Type: URINE SPECIMENOrdering Facility: [facility] Address: [address] [place] [address] Performed By: #### 2 4356-8 ####[facility] LABORATORYCLIA [id number] [address] Urobilinogen Ql (U) Normal Normal Negative [facility] Comment on above: Order Comment: Speci men Type: URINE SPECIMENOrdering Facility: [facility] Address: [address] [place] [address] Performed By: #### 2 4356-8 ####[facility] LABORATORYCLIA [id number] [address] WBC LM.HPF (Urine sed) [#/Area] 0-5 /HPF Normal 0-5 /HPF [facility] Comment on above: Order Comment: Speci men Type: URINE SPECIMENOrdering Facility: [facility] Address: [address] [place] [address] Performed By: #### 2 4356-8 ####[facility] LABORATORYCLIA [id number] [place] [address] [place] Basic metabolic 2000 panelon 07-04-2022 Anion gap [Moles/Vol] 3 mmol/L Low 8-16 [facility] Comment on above: Order Comment: Speci men Type: BLOOD SPECIMENOrdering Facility: [facility] Address: [address] [place] [address] Performed By: #### 2 4321-2 ####[facility] LABCLIA [id number] [place] [address] [place] Calcium [Mass/Vol] 8.6 mg/dL Normal 8.5-10.1 [facility] Comment on above: Order Comment: Speci men Type: BLOOD SPECIMENOrdering Facility: [facility] Address: [address] [place] [address] Performed By: #### 2 4321-2 ####[facility] LABCLIA [id number] [place] [address] [place] Chloride [Moles/Vol] 104 mmol/L Normal 98-107 [facility] Comment on above: Order Comment: Speci men Type: BLOOD SPECIMENOrdering Facility: [facility] Address: [address] [place] [address] Performed By: #### 2 4321-2 ####[facility] LABCLIA [id number] [place] [address] [place] CO2 [Moles/Vol] 32 mmol/L Normal 21-32 [facility] Comment on above: Order Comment: Speci men Type: BLOOD SPECIMENOrdering Facility: [facility] Address: [address] [place] [address] Performed By: #### 2 4321-2 ####[facility] LABCLIA [id number] [place] [address] [place] Creatinine [Mass/Vol] 1.00 mg/dL Normal 0.67-1.17 [facility] Comment on above: Order Comment: Speci men Type: BLOOD SPECIMENOrdering Facility: [facility] Address: [address] [place] [address] Performed By: #### 2 4321-2 ####[facility] LABCLIA [id number] [place] [address] [facility] [place] [facility] ESTIMATED GLOMERULAR FILTRATION RATE 73 mL/min/1.73m??? Normal >=60 [facility] Comment on above: Order Comment: Speci men Type: BLOOD SPECIMENOrdering Facility: [facility] Address: [address] [place] [address] Result Comment: Concepción mated Glomerular Filtration Rate [...] actual GFR. Performed By: #### 2 4321-2 ####[facility] LABCLIA [id number] [place] [address] [place] Glucose [Mass/Vol] 112 mg/dL High 70-99 [facility] Comment on above: Order Comment: Speci men Type: BLOOD SPECIMENOrdering Facility: [facility] Address: [address] [place] [address] Result Comment: The [place] Diabetes Association (ADA) provides guidance for cutoff [...] Standards of Medical Care in Diabetes 2016, [place] Diabetes Association. Diabetes Care. 2016.39(Suppl 1). Performed By: #### 2 4321-2 ####[facility] LABCLIA [id number] [place] [id number] [place] Potassium [Moles/Vol] 4.7 mmol/L Normal 3.5-5.1 [facility] Comment on above: Order Comment: Speci men Type: BLOOD SPECIMENOrdering Facility: [facility] Address: [address] [place] [address] Performed By: #### 2 4321-2 ####[facility] LABCLIA [id number] [place] [id number] [place] Sodium [Moles/Vol] 139 mmol/L Normal 136-145 [facility] Comment on above: Order Comment: Speci men Type: BLOOD SPECIMENOrdering Facility: [facility] Address: [address] [place] [address] Performed By: #### 2 4321-2 ####[facility] LABCLIA [id number] [place] [address] [place] Urea nitrogen [Mass/Vol] 26 mg/dL High 7-18 [facility] Comment on above: Order Comment: Speci men Type: BLOOD SPECIMENOrdering Facility: [facility] Address: [address] [place] [address] Performed By: #### 2 4321-2 ####[facility] LABCLIA [id number] [place] [address] [place] CBC W Auto Differential pane l (Bld)on 07-04-2022 Basophils (Bld) [#/Vol] 0.12 10*3/uL High <0.11 [facility] Comment on above: Order Comment: Speci men Type: BLOOD SPECIMENOrdering Facility: [facility] Address: [address] [place] [address] Performed By: #### 5 7021-8 ####[facility] LABCLIA [id number] [place] [address] [place] Basophils/100 WBC (Bld) 1.5 % Normal [facility] Comment on above: Order Comment: Speci men Type: BLOOD SPECIMENOrdering Facility: [facility] Address: [address] [place] [address] Performed By: #### 5 7021-8 ####VTALIREZA YANG LABCLIA [id number] [address] STATES [facility] Differential cell count method Nom (Bld) Auto Normal [facility] Comment on above: Order Comment: Speci men Type: BLOOD SPECIMENOrdering Facility: [facility] Address: [address] [place] [address] Performed By: #### 5 7021-8 ####[facility] LABCLIA [id number] [place] [address] [place] Eosinophils (Bld) [#/Vol] 0.09 10*3/uL Normal <0.46 [facility] Comment on above: Order Comment: Speci men Type: BLOOD SPECIMENOrdering Facility: [facility] Address: [address] [place] [address] Performed By: #### 5 7021-8 ####[facility] LABCLIA [id number] [place] [address] [place] Eosinophils/100 WBC (Bld) 1.1 % Normal [facility] Comment on above: Order Comment: Speci men Type: BLOOD SPECIMENOrdering Facility: [facility] Address: [address] [place] [address] Performed By: #### 5 7021-8 ####[facility] LABCLIA [id number] [address] [place] Erythrocyte distribution width (RBC) [Ratio] 19.6 % High 11.5-15.0 [facility] Comment on above: Order Comment: Speci men Type: BLOOD SPECIMENOrdering Facility: [facility] Address: [address] [place] [address] Performed By: #### 5 7021-8 ####PEG [facility] LABCLIA [id number] [address] [place] Hematocrit (Bld) [Volume fraction] 26.6 % Low 39.0-51.0 [facility] Comment on above: Order Comment: Speci men Type: BLOOD SPECIMENOrdering Facility: [facility] Address: [address] [place] [address] Performed By: #### 5 7021-8 ####VTALIREZA YANG LABCLIA [id number] [place] [address] [place] Hemoglobin (Bld) [Mass/Vol] 8.8 g/dL Low 13.0-17.0 [facility] Comment on above: Order Comment: Speci men Type: BLOOD SPECIMENOrdering Facility: [facility] Address: [address] [place] [address] Performed By: #### 5 7021-8 ####[facility] LABCLIA [id number] [place] [address] [facility] Lymphocytes (Bld) [#/Vol] 1.19 10*3/uL Normal 1.00-4.00 [facility] Comment on above: Order Comment: Speci men Type: BLOOD SPECIMENOrdering Facility: [facility] Address: [address] [place] [address] Performed By: #### 5 7021-8 ####[facility] LABCLIA [id number] [place] [address] [facility] Lymphocytes/100 WBC (Bld) 14.7 % Normal [facility] Comment on above: Order Comment: Speci men Type: BLOOD SPECIMENOrdering Facility: [facility] Address: [address] [place] [address] Performed By: #### 5 7021-8 ####[facility] LABCLIA [id number] [address] MCH (RBC) [Entitic mass] 37.0 pg High 26.0-34.0 [facility] Comment on above: Order Comment: Speci men Type: BLOOD SPECIMENOrdering Facility: [facility] Address: [address] [place] [address] Performed By: #### 5 7021-8 ####[facility] LABCLIA [id number] [place] [address] [facility] MCHC (RBC) [Mass/Vol] 33.1 g/dL Normal 30.5-36.0 [facility] Comment on above: Order Comment: Speci men Type: BLOOD SPECIMENOrdering Facility: [facility] Address: [address] [place] [address] Performed By: #### 5 7021-8 ####[facility] LABCLIA [id number] [place] [address] [place] MCV (RBC) [Entitic vol] 111.8 fL High 80.0-100.0 [facility] Comment on above: Order Comment: Speci men Type: BLOOD SPECIMENOrdering Facility: [facility] Address: [address] [place] [address] Performed By: #### 5 7021-8 ####PEG [facility] LABCLIA [id number] [place] [address] [place] Monocytes (Bld) [#/Vol] 1.03 10*3/uL High <0.87 [facility] Comment on above: Order Comment: Speci men Type: BLOOD SPECIMENOrdering Facility: [facility] Address: [address] [place] [address] Performed By: #### 5 7021-8 ####VTALIREZA YANG LABCLIA [id number] [place] [address] [place] Monocytes/100 WBC (Bld) 12.7 % Normal [facility] Comment on above: Order Comment: Speci men Type: BLOOD SPECIMENOrdering Facility: [facility] Address: [address] [place] [address] Performed By: #### 5 7021-8 ####[facility] LABCLIA [id number] [place] [address] [place] Neutrophils (Bld) [#/Vol] 5.69 10*3/uL Normal 1.45-7.50 [facility] Comment on above: Order Comment: Speci men Type: BLOOD SPECIMENOrdering Facility: [facility] Address: [address] [place] [address] Performed By: #### 5 7021-8 ####PEG [facility] LABCLIA [id number] [place] [address] [place] Neutrophils/100 WBC (Bld) 70.0 % Normal [facility] Comment on above: Order Comment: Speci men Type: BLOOD SPECIMENOrdering Facility: [facility] Address: [address] [place], [place] [address] Performed By: #### 5 7021-8 ####[facility] GRE[facility] LABCLIA [id number] [place] [address] [place] [facility] Platelet mean volume (Bld) [Entitic vol] 10.8 fL Normal 9.0-12.7 [facility] Comment on above: Order Comment: Speci men Type: BLOOD SPECIMENOrdering Facility: [facility] Address: [address] [place] [address] Performed By: #### 5 7021-8 ####PEG [facility]MS [facility] LABCLIA [id number] [place] [address] [place] Platelets (Bld) [#/Vol] 239 10*3/uL Normal 150-400 [facility] Comment on above: Order Comment: Speci men Type: BLOOD SPECIMENOrdering Facility: [facility] Address: [address] [place], [place] [address] Performed By: #### 5 7021-8 ####[facility] LABCLIA [id number] [place] [address] [place] RBC (Bld) [#/Vol] 2.38 10*6/uL Low 4.20-6.00 [facility] Comment on above: Order Comment: Speci men Type: BLOOD SPECIMENOrdering Facility: [facility] Address: [address] [place], [place] [address] Performed By: #### 5 7021-8 ####[facility] MedicalALIREZA SAUCEDA GREEN LABCLIA [id number] [place] [address] [place] WBC (Bld) [#/Vol] 8.12 10*3/uL Normal 3.70-11.00 [facility] Comment on above: Order Comment: Speci men Type: BLOOD SPECIMENOrdering Facility: [facility] Address: [address] [place], [place] [address] Performed By: #### 5 7021-8 ####[facility] LABIA [id number] [place] [address] [facility] ED NOTEon 07-04-2022 ED NOTE HNO ID: [id number] Author: Rosa Carter RN Service: Emergency Medicine Author Type: Registered Nurse Type: ED Notes Filed: 07/04/2022 6:27 PM Note Text: Report given to [facility]. Normal [facility] ED NOTE HNO ID: [id number] Author: Rosa Carter RN Service: Emergency Medicine Author Type: Registered Nurse Type: ED Notes Filed: 07/04/2022 5:57 PM Note Text: Report given to zak jiménez. Normal [facility] ED NOTE HNO ID: [id number] Author: Ju Huynh RN Service: Emergency Medicine Author Type: Registered Nurse Type: ED Notes Filed: 07/04/2022 2:11 PM Note Text: Bilateral leg swelling x1 month, states swelling has moved to scrotum. States SOB. Normal [facility] ED PROV NOTEon 07-04-2022 ED PROV NOTE Normal [facility] ED PROV NOTE Normal [facility] NT-proBNP SerPl-ncon 07-04 Natriuretic peptide.B prohormone N-Terminal [Mass/Vol] 53083 pg/mL High <450 [facility] Comment on above: Order Comment: Speci men Type: BLOOD SPECIMENOrdering Facility: [facility] Address: [address] [place] [address] Performed By: #### T JEAN CARLOS 91402-3 ####[facility]PITALIA [id number] [place] [address] [facility] [place] SARS-CoV-2 RNA Resp Ql OLIVER+p robeon 07-04-2022 SARS-CoV-2 (COVID-19) RNA OLIVER+probe Ql (Resp) SARS-CoV-2 (Agent of COVID-19) Not Detected by RT-PCR or equivalent method. Normal Not Detected [facility] Comment on above: Order Comment: Speci men Type: SWAB OF INTERNAL NOSEOrdering Facility: [facility] Address: [address] [place], [place] [address] Result Comment: This test has been authorized by FDA under an Emergency Use Authorization (EUA). Performed By: #### 9 4500-6 ####[facility] LABCLIA [id number] [place] [address] [place] TROPONIN Ion 07-04-2022 Troponin I.cardiac [Mass/Vol] 0.050 ng/mL High <0.040 [facility] Comment on above: Order Comment: Speci men Type: BLOOD SPECIMENOrdering Facility: [facility] Address: [address] [place] [address] Performed By: #### T ROP, 45072-4 ####[facility] LABCLIA [id number] [address] [place] Urinalysis complete panel (U )on 07-04-2022 Bilirubin Ql (U) Negative Normal Negative [facility] Comment on above: Order Comment: Speci men Type: URINE SPECIMENOrdering Facility: [facility] Address: [address] [place] [address] Performed By: #### 2 4356-8 ####[facility] LABCLIA [id number] [place] [address] [place] Clarity (Unsp spec) Clear Normal Clear [facility] Comment on above: Order Comment: Speci men Type: URINE SPECIMENOrdering Facility: [facility] Address: [address] [place] [address] Performed By: #### 2 4356-8 ####[facility] LABCLIA [id number] [place] [address] [place] [facility] Color (U) Yellow Normal Yellow [facility] Comment on above: Order Comment: Speci men Type: URINE SPECIMENOrdering Facility: [facility] Address: [address] [place] [address] Performed By: #### 2 4356-8 ####[facility] LABCLIA [id number] [address] Glucose Test strip (U) [Mass/Vol] Negative Normal Negative [facility] Comment on above: Order Comment: Speci men Type: URINE SPECIMENOrdering Facility: [facility] Address: [address] [place] [address] Performed By: #### 2 4356-8 ####[facility] LABCLIA [id number] [address] Hemoglobin Ql (U) Negative Normal Negative [facility] Comment on above: Order Comment: Speci men Type: URINE SPECIMENOrdering Facility: [facility] Address: [address] [place] [address] Performed By: #### 2 4356-8 ####[facility] LABCLIA [id number] [address] Ketones Ql (U) Negative Normal Negative [facility] Comment on above: Order Comment: Speci men Type: URINE SPECIMENOrdering Facility: [facility] Address: [address] [place] [address] Performed By: #### 2 4356-8 ####[facility] LABCLIA [id number] [address] Leukocyte esterase Test strip Ql (U) Negative Normal Negative [facility] Comment on above: Order Comment: Speci men Type: URINE SPECIMENOrdering Facility: [facility] Address: [address] [place] [address] Performed By: #### 2 4356-8 ####[facility] LABCLIA [id number] [address] Nitrite Ql (U) Negative Normal Negative [facility] Comment on above: Order Comment: Speci men Type: URINE SPECIMENOrdering Facility: [facility] Address: [address] [place] [address] Performed By: #### 2 4356-8 ####[facility] LABCLIA [id number] [place] [address] [place] pH (U) 5.5 [pH] Normal 5.0-8.0 [facility] Comment on above: Order Comment: Speci men Type: URINE SPECIMENOrdering Facility: [facility] Address: [address] [place] [address] Performed By: #### 2 4356-8 ####PEG YANG LABCLIA [id number] [place] [address] [place] Protein (U) [Mass/Vol] Trace Abnormal Negative [facility] Comment on above: Order Comment: Speci men Type: URINE SPECIMENOrdering Facility: [facility] Address: [address] [place] [address] Performed By: #### 2 4356-8 ####PERRY ANOKA LABIA [id number] [place] [address] [place] RBC LM.HPF (Urine sed) [#/Area] 0-3 /HPF Normal 0-3 /HPF [facility] Comment on above: Order Comment: Speci men Type: URINE SPECIMENOrdering Facility: [facility] Address: [address] [place] [address] Performed By: #### 2 4356-8 ####VTALIREZA SAUCEDA ANOKA LABCLIA [id number] [place] [address] [place] Specific gravity (U) [Rel density] <1.005 Low 1.005-1.03 0 [facility] Comment on above: Order Comment: Speci men Type: URINE SPECIMENOrdering Facility: [facility] Address: [address] [place] [address] Performed By: #### 2 4356-8 ####VTALIREZA YANG LABCLIA [id number] [place] [address] [facility] [place] Urobilinogen Ql (U) Negative Normal Negative [facility] Comment on above: Order Comment: Speci men Type: URINE SPECIMENOrdering Facility: [facility] Address: [address] [place], [place] [address] Performed By: #### 2 4356-8 ####PEG [facility] LABCLIA [id number] [place] [address] [facility] [place] WBC LM.HPF (Urine sed) [#/Area] 0-5 /HPF Normal 0-5 /HPF [facility] Comment on above: Order Comment: Speci men Type: URINE SPECIMENOrdering Facility: [facility] Address: [address] [place] [address] Performed By: #### 2 4356-8 ####PEG [facility] LABCLIA [id number] [place] [address] [place] XR CHEST 2V FRONTAL/LATon XR CHEST 2V FRONTAL/LAT Normal [facility] XR KNEE LIMITED 2V AP/LAT RI GHTon 06-04-2022 [facility] MRI LUMBAR SPINE WO IVCONon 05-26-2022 MRI LUMBAR SPINE WO IVCON Normal [facility] BMPon 09-20-2021 Anion gap [Moles/Vol] 8 mmol/L Normal 5-16 [facility] Comment on above: Order Comment: Campu s: M Performed By: #### L 500.10890, L500.81659 #### [facility] [place] [address] Calcium [Mass/Vol] 9.4 mg/dL Normal 8.5-10.5 [facility] Comment on above: Order Comment: Campu s: M Result Comment: NOTE NEW NORMAL RANGE DUE TO REAGENT CHANGE Performed By: #### L 500.73786, L500.88211 #### [facility] [place] [address] Chloride [Moles/Vol] 103 mmol/L Normal 98-107 [facility] Comment on above: Order Comment: Campu s: M Performed By: #### L 500.56017, L500.06998 #### [facility] [address] [place] [address] CO2 [Moles/Vol] 27.0 mmol/L Normal 21-32 [facility] Comment on above: Order Comment: Tomer s: M Performed By: #### L 500.11628, L500.75182 #### [facility] [place] [address] Creatinine [Mass/Vol] 0.90 mg/dL Normal 0.5-1.4 [facility] Comment on above: Order Comment: Tomer s: M Result Comment: NOTE NEW NORMAL RANGE DUE TO REAGENT CHANGE Patients receiving either N-Acetylcysteine (NAC) or Metamizole prior to venipuncture, may have falsely depressed results. Performed By: #### L 500.23426, L500.94223 #### [facility] [address] [place] [address] Glucose [Mass/Vol] 102 mg/dL High 70-100 [facility] Comment on above: Order Comment: Tomer s: M Result Comment: 70-1 00- Normal Fasting; 100-125 Impaired Fasting; greater than 126 on more than one result- Diabetes. ADA guidelines. Results may be falsely elevated after the administration of Sulfapyridine. Results may be falsely depressed after the administration of Sulfasalazine. Performed By: #### L 500.07826, L500.36900 #### [facility] [place] [address] Potassium [Moles/Vol] 4.5 mmol/L Normal 3.5-5.1 [facility] Comment on above: Order Comment: Tomer s: M Result Comment: Slig ht Hemolysis, Result may be affected. Performed By: #### L 500.03269, L500.96003 #### [facility] [address] [place] [address] Sodium [Moles/Vol] 138 mmol/L Normal 136-145 [facility] Comment on above: Order Comment: Campu s: M Performed By: #### L 500.17017, L500.00244 #### [facility] [address] [place] [address] Urea nitrogen [Mass/Vol] 25 mg/dL Normal 7-26 [facility] Comment on above: Order Comment: Campu s: M Performed By: #### L 500.50508, L500.73361 #### [facility] [address] [place] [address] Urea nitrogen/Creatinine [Mass ratio] 28 mg/mg High 15-24 [facility] Comment on above: Order Comment: Campu s: M Performed By: #### L 500.83362, L500.51442 #### [facility] [address] [place] [address] CBC W/DIFFon 09-20-2021 BASO ABS 0.00 K/CU MM Normal 0-0.2 [facility] Comment on above: Order Comment: Campu s: M Performed By: #### L 200.78767 #### [facility] [address] [place] [address] Basophils/100 WBC (Bld) 0.6 % Normal 0-2 [facility] Comment on above: Order Comment: Campu s: M Performed By: #### L 200.98081 #### [facility] [address] [place] [address] EOS ABS 0.20 K/CU MM Normal 0-0.5 [facility] Comment on above: Order Comment: Campu s: M Performed By: #### L 200.23229 #### [facility] [address] [place] [address] Eosinophils/100 WBC (Bld) 2.7 % Normal 0-5 [facility] Comment on above: Order Comment: Campu s: M Performed By: #### L 200.06504 #### [facility] [address] [place] [address] Erythrocyte distribution width (RBC) [Ratio] 19.5 % High 11-14.5 [facility] Comment on above: Order Comment: Campu s: M Performed By: #### L 200.10917 #### [facility] [address] [place] [address] Hematocrit (Bld) [Volume fraction] 27.7 % Low 41.0-53.0 [facility] Comment on above: Order Comment: Campu s: M Performed By: #### L 200.80576 #### [facility] [address] [place] [address] Hemoglobin (Bld) [Mass/Vol] 9.4 g/dL Low 13.5-17.5 [facility] Comment on above: Order Comment: Campu s: M Performed By: #### L 200.67602 #### [facility] [address] [place] [address] IMMATR GRAN ABS 0.00 K/CU MM Normal Less than 2 [facility] Comment on above: Order Comment: Campu s: M Performed By: #### L 200.84578 #### [facility] [address] [place] [address] IMMATURE GRAN % 0.5 % Normal Less than 2 [facility] Comment on above: Order Comment: Campu s: M Performed By: #### L 200.68177 #### [facility] [address] [place] [address] LYMPH ABS 1.60 K/CU MM Normal 0.9-4.4 [facility] Comment on above: Order Comment: Campu s: M Performed By: #### L 200.87216 #### [facility] [address] [place] [address] Lymphocytes/100 WBC (Bld) 24.9 % Normal 20-40 [facility] Comment on above: Order Comment: Campu s: M Performed By: #### L 200.29102 #### [facility] [address] [place] [address] MCHC (RBC) [Mass/Vol] 33.9 g/dL Normal 32.0-36.0 [facility] Comment on above: Order Comment: Campu s: M Performed By: #### L 200.63258 #### [facility] [address] [place] [address] MCV (RBC) [Entitic vol] 104.9 fL High 80.0-99.0 [facility] Comment on above: Order Comment: Campu s: M Performed By: #### L 200.07209 #### [facility] [address] [place] [address] MONO ABS 0.80 K/CU MM Normal 0.1-1.1 [facility] Comment on above: Order Comment: Campu s: M Performed By: #### L 200.62583 #### [facility] [address] [place] [address] Monocytes/100 WBC (Bld) 11.9 % High 2-10 [facility] Comment on above: Order Comment: Campu s: M Performed By: #### L 200.18172 #### [facility] [address] [place] [address] NEUTROPHIL ABS 3.70 K/CU MM Normal 2.0-8.3 [facility] Comment on above: Order Comment: Campu s: M Performed By: #### L 200.61594 #### [facility] [address] [place] [address] Neutrophils/100 WBC (Bld) 59.4 % Normal 45-75 [facility] Comment on above: Order Comment: Campu s: M Performed By: #### L 200.46384 #### [facility] [place] [id number] Nucleated RBC/100 WBC (Bld) [Ratio] 0.3 % Normal Less than 1 [facility] Comment on above: Order Comment: Campu s: M Performed By: #### L 200.63573 #### [facility] [address] [place], [place] [id number] Platelet mean volume (Bld) [Entitic vol] 11.6 fL Normal 9.4-12.4 [facility] Comment on above: Order Comment: Campu s: M Performed By: #### L 200.15715 #### [facility] [address] [place] [address] PLT 278 K/CU MM Normal 150-450 [facility] Comment on above: Order Comment: Campu s: M Performed By: #### L 200.65535 #### [facility] [address] [place] [address] RBC 2.64 M/CU MM Low 4.50-6.00 [facility] Comment on above: Order Comment: Campu s: M Performed By: #### L 200.72700 #### [facility] [address] [place], [place] [id number] WBC 6.3 K/CUMM Normal 4.5-11.0 [facility] Comment on above: Order Comment: Campu s: M Performed By: #### L 200.39558 #### [facility] [address] [place] [address] Chava 09-20-2021 EMERGENCY PHYSICIAN REPORT This is a preliminary report only, as the practitioner review and authentication has not occurred. 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 Identified to have atrial fibrillation at that time initiated on Coumadin. He resides here locally and follows with Dr. Posadas and Dr. Minor. He was changed over to Xarelto by his scrip clerk for his A. fib anticoagulation upon his return. He has been doing well postoperatively [facility] PATIENT NAME: SRINI LUIS [address] [facility] [address] Mercado MEDICAL REC #: [id number] [place] [address] EMERGENCY DEPARTMENT REPORT EMERGENCY DEPARTMENT PHYSICIAN although [...] of cellulitis along the leg. Neurological: Alert, [facility] PATIENT NAME: SRINI LUIS [address] [facility] [address] Mercado MEDICAL REC #: [id number] [place] [address] EMERGENCY DEPARTMENT REPORT EMERGENCY DEPARTMENT PHYSICIAN Oriented [...] or lymphati (more content not included)... [facility] IF AMER Greater than 60 Normal [facility] Comment on above: Order Comment: Tomer s: M Performed By: #### L [id number], L500.25047 #### [facility] [address] [place] [address] IF non-AFR AMER Greater than 60 Normal [facility] Comment on above: Order Comment: Tomer s: M Performed By: #### L [id number], [id number] #### [facility] [address] [place] [address]# [phone] [facility] 09-20-2021 VENOUS DUPLEX REPORT Normal [facility] VASCULAR REPORT -- Patient: SRINI LUIS Account [id number] Ordering Phy: MR: [id number] Reason for Visit: SENT BY DR FOR LEG ISSUE - PROTRUDING SKIN Date of Service 09/20/21 Reading Physician: David Ledbetter MD [id number] SINGLE LE VENOUS DUPLEX SCAN [address] [place] [address] Non- Invasive Vascular Laboratory Lower Extremity Venous Duplex ____ Name: SRINI LUIS Study Date: 09/20/2021 06:14 PM Patient Location: [facility] : 1935 Gender: Male Age: 85 yrs Ethnicity: [place] Accession No. [id number] No. [id number] Order No. [id number] Reason For Study: M79.89 (Swelling) Other specified soft tissue disorders Interpretation Summary No evidence of deep vein thrombosis (DVT) or superficial vein thrombosis in the right lower extremity. Non vascular area along anterior medial(area CC: Benny Stoll MD [facility] PATIENT NAME: SRINI LUIS [address] [place] [address] Dr. Mercado MEDICAL REC #: [id number] [place] [address] ADMIT DATE: DISCHARGE DATE: 09/20/21 VENOUS DUPLEX REPORT ATTENDING PHY: Benny Stoll MD Electronically Signed by: David Ledbetter MD [facility] Date: 09/20/21 VASCULAR REPORT -- Patient: SRINI LUIS Account [id number] Ordering Phy: MR: [id number] Reason for Visit: SENT BY DR FOR LEG ISSUE - PROTRUDING SKIN Date of Service 09/20/21 Reading Physician: David Ledbetter MD of [facility]) measures 13.4 x 1.63 x [...] Ant Tib: Completely CC: Benny Stoll MD [facility] PATIENT NAME: SRINI LUIS [address] [facility] [address] Mercado MEDICAL REC #: [id number] [place] [address] ADMIT DATE: DISCHARGE DATE: 09/20/21 VENOUS DUPLEX REPORT ATTENDING PHY: Benny Stoll MD Electronically Signed by: David Ledbetter MD Esign Date: 09/20/21 VASCULAR REPORT -- Patient: SRINI LUIS Account [id number] Ordering Phy: MR: [id number] Reason for Visit: SENT BY DR FOR [...] x 2.75 cm. CC: Benny Stoll MD [facility] PATIENT NAME: SRINI LUIS [address] [facility] [address] Mercado MEDICAL REC #: [id number] [place] [address] ADMIT DATE: DISCHARGE DATE: 09/20/21 VENOUS DUPLEX REPORT ATTENDING PHY: Benny Stoll MD Electronically Signed by: David Ledbetter MD [facility]sign Date: 09/20/21 VASCULAR REPORT -- Patient: SRINI LUIS Account [id number] Ordering Phy: MR: [id number] Reason for Visit: SENT BY FOR LEG ISSUE - PROTRUDING SKIN Date of Service 09/20/21 Reading Physician: David Ledbetter MD ____ Electronically signed b (more content not included)... Normal [facility] US DVT LOWER RTon 02-01-2021 US DVT LOWER RT Final Report DATE OF EXAM: Feb 01 2021 2:00PM [facility] 1007 - US DVT LOWER RT [...] imaged segments of the right lower extremity. Audio Visual Aids Director: PSCB Transcribe Date/Time: Feb 01 2021 2:03P Dictated by : LARON CEDEÑO MD This examination was interpreted and the report reviewed and electronically signed by: LARON CEDEÑO MD on Feb 01 2021 2:05PM EST Normal [facility] CT ANKLE WO IVCON RTon 10-16 CT ANKLE WO IVCON RT Final Report DATE OF EXAM: Oct 16 2020 6:20PM [facility] 0061 - CT ANKLE WO IVCON RT [...] tenosynovitis versus communication with the ankle joint. Audio Visual Aids Director: BERNARDA Transcribe Date/Time: Oct 17 2020 8:58A Dictated by : ISABEL ZAVALETA MD This examination was interpreted and the report reviewed and electronically signed by: ISABEL ZAVALETA MD on Oct 17 2020 9:10AM EST Normal [facility] Clinical Summary: HMSPatient IDon 09-28-2020 AOP [facility] Work Phone: Clinical Lists Update: Prelo ad Extendedon 09-27-2020 Tobacco smoking status NHIS Tobacco smoking status [facility] Work Phone: Clinical Summary: Data Submi tted by Patient in [place] 09-27-2020 #DEP CHLDRN No [facility] Work Phone: 3+ETOHDAILY less than 1 drink per day [facility] Work Phone: ALLERGY COMM Simvastatin [facility] Work Phone: ASTHEHSZHOUS 1 floor [facility] Work Phone: DEATHCAU DAD Heart Disease [facility] Work Phone: DEATHCAU MOM Heart [facility] Work Phone: DEP ALG LIST I don't have any adalberto g allergies.,I don't have any food allergies.,I don't have any environmental allergies. 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 [facility] Work Phone: DEP ETOH USE Yes [facility] Work Phone: DEP EXERCISE Yes [facility] Work Phone: DEP EXERTYP cycling [facility] Work Phone: DEP MED LIST Aleve 220 mg Cap, 1 times per day,Multi-Delyn 10.8 mg/mL;72 unt/mL;2.7 unt/mL;2.44 mg/mL;0.189 mg/mL;0.168 mg/mL;0.168 mg/mL;450 unt/mL;0.75179 mg/mL Annika, 1 times per day,Animi-3 With Vitamin D 1000 unt;1 mg;500 mg;200 mg;12.5 mg Cap, 1 times per day,Levothyroxine 0.112 mg Tab, 1 times per day,Fisherman's Friend 10 mg Lozenge, 1 times per day,Ecotrin [address], 1 times per day,Atorvastatin 10 mg Tab, 1 times per day [facility] Work Phone: DEP SH CSMO former smoker [facility] Work Phone: DEP SH FSMO 1988 [facility] Work Phone: DEP SH MAST [facility] Work Phone: DEP SURGERY Elbow surgery, Shoul lyn replacement - total [facility] Work Phone: DEPADDLPROB Myasthenia Gravis, S reji stenosis, Both shoulders replaced [facility] Work Phone: DEPEXER FREQ 3 days per week [facility] Work Phone: DEPFHMATUNKN My mother's health h istory is unknown [facility] Work Phone: ETOHPERFRM beer [facility] Work Phone: EXERIvaldiIN [employer] I am [employer] member and use various equipment. [facility] Work Phone: FATHER A/D [facility] Work Phone: [id number] I live in [facility] Work Phone: MOTHER A/D [facility] Work Phone: PREPRGETOH Zero times in the pa st 30 years of having more than 2 in any one day. [facility] Work Phone: RLATNSHPINFR Self [facility] Work Phone: [facility] Work Phone: TOBUSEWHEN 25 [facility] Work Phone: WEBSURGCOM Both shoulders [facility] Work Phone: Vital Signs Date Time Vital Sign Value Performing Clinician Facility 07-07-2025 10:03-0400 Body mass index (BMI) [Ratio] 28.74 kg/m2 Baljinder Galloway DO Work Phone: [facility] 07-07-2025 10:03-0400 Body temperature 97.11 [degF] Baljinder Galloway DO Work Phone: [facility] 07-07-2025 10:03-0400 Body weight 83.23 kg Baljinder Galloway DO Work Phone: [facility] 07-07-2025 10:03-0400 Diastolic blood pressure 87 mm[Hg] Baljinder Robbinsi DO Work Phone: [facility] 07-07-2025 10:03-0400 Heart rate 43 /min Baljinder Robbinsi DO Work Phone: [facility] 07-07-2025 10:03-0400 SaO2% (BldA) [Mass fraction] 96 % Baljinder Robbinsi DO Work Phone: [facility] 07-07-2025 10:03-0400 Systolic blood pressure 120 mm[Hg] Baljinder Robbinsi DO Work Phone: [facility] 06-29-2025 14:10-0400 Body mass index (BMI) [Ratio] 27.97 kg/m2 Ronaldo Pleitez MD Work Phone: [facility] 06-29-2025 14:10-0400 Body weight 81 kg Ronaldo Pleitez MD Work Phone: [facility] 06-29-2025 14:10-0400 Diastolic blood pressure 72 mm[Hg] Ronaldo Pleitez MD Work Phone: [facility] 06-29-2025 14:10-0400 Heart rate 72 /min Ronaldo Pleitez MD Work Phone: [facility] 06-29-2025 14:10-0400 Systolic blood pressure 118 mm[Hg] Ronaldo Pleitez MD Work Phone: [facility] 06-26-2025 07:38-0400 Body temperature 98 [degF] Dr. Ronaldo Pleitez MD Work Phone: [facility] 06-26-2025 07:38-0400 Diastolic blood pressure 52 mm[Hg] Dr. Ronaldo Pleitez MD Work Phone: [facility] 06-26-2025 07:38-0400 Heart rate 67 /min Dr. Ronaldo Pleitez MD Work Phone: [facility] 06-26-2025 07:38-0400 Respiratory rate 18 /min Dr. Ronaldo Pleitez MD Work Phone: 3(289)859-581741 [place] [address] 06-26-2025 07:38-0400 SaO2% (BldA) [Mass fraction] 98 % Dr. Ronaldo Pleitez MD Work Phone: 8(845)041-958641 [place] [address] 06-26-2025 07:38-0400 Systolic blood pressure 121 mm[Hg] Dr. Ronaldo Pleitez MD Work Phone: 5(390)139-235141 [place] [address] 06-26-2025 05:00-0400 Inhaled oxygen flow rate 2 L/min Dr. Ronaldo Pleitez MD Work Phone: 7(325)731-899641 [place] [address] 06-23-2025 17:30-0400 Body height 167.[address] Ronaldo Pleitez MD Work Phone: 1(856)917-611941 [place] [address] 06-23-2025 17:30-0400 Body mass index (BMI) [Ratio] 28.4 kg/m2 Dr. Ronaldo Pleitez MD Work Phone: 3(051)605-300441 [place] [address] 06-23-2025 17:30-0400 Body weight 79.[address] Ronaldo Pleitez MD Work Phone: 9(980)532-336541 [place] [address] 06-23-2025 16:25-0400 Body temperature 97.7 [degF] Dr. Ronaldo Pleitez MD Work Phone: 9(342)484-567541 [place] [address] 06-23-2025 16:25-0400 Diastolic blood pressure 71 mm[Hg] Dr. Ronaldo Pleitez MD Work Phone: 7(935)079-386241 [place] [address] 06-23-2025 16:25-0400 Heart rate 62 /min Dr. Ronaldo Pleitez MD Work Phone: 8(030)635-458141 [place] [address] 06-23-2025 16:25-0400 Respiratory rate 18 /min Dr. Ronaldo Pleitez MD Work Phone: 4(718)127-381241 [place] [address] 06-23-2025 16:25-0400 SaO2% (BldA) [Mass fraction] 100 % Dr. Ronaldo Pleitez MD Work Phone: 0(156)859-156141 [place] [address] 06-23-2025 16:25-0400 Systolic blood pressure 98 mm[Hg] Dr. Ronaldo Pleitez MD Work Phone: 1(387)308-018241 [place] [address] 06-23-2025 13:39-0400 Body mass index (BMI) [Ratio] 28.5 kg/m2 Dr. Ronaldo Pleitez MD Work Phone: 5(349)469-204441 [place] [address] 06-23-2025 13:39-0400 Body weight 82.[address] Ronaldo Pleitez MD Work Phone: 3(686)513-300441 [place] [address] 06-23-2025 13:25-0400 Body height 170.[address] Ronaldo Pleitez MD Work Phone: 8(149)668-323541 [place] [address] 06-23-2025 13:25-0400 Body temperature 97.9 [degF] Dr. Ronaldo Pleitez MD Work Phone: 3(600)370-201241 [place] [address] 06-23-2025 13:25-0400 Diastolic blood pressure 72 mm[Hg] Dr. Ronaldo Pleitez MD Work Phone: 0(009)964-364241 [place] [address] 06-23-2025 13:25-0400 Heart rate 61 /min Dr. Ronaldo Pleitez MD Work Phone: 7(416)330-616241 [place] [address] 06-23-2025 13:25-0400 Respiratory rate 16 /min Dr. Ronaldo Pleitez MD Work Phone: 1(498)098-990241 [place] [address] 06-23-2025 13:25-0400 SaO2% (BldA) [Mass fraction] 93 % Dr. Ronaldo Pleitez MD Work Phone: 8(770)063-437841 [place] [address] 06-23-2025 13:25-0400 Systolic blood pressure 121 mm[Hg] Dr. Ronaldo Pleitez MD Work Phone: 2(564)244-842650 [place] [address] 06-23-2025 10:30-0400 Body temperature 97.11 [degF] Ronaldo Pleitez MD Work Phone: [facility] 06-23-2025 10:30-0400 Diastolic blood pressure 64 mm[Hg] Ronaldo Pleitez MD Work Phone: [facility] 06-23-2025 10:30-0400 Heart rate 60 /min Ronaldo Pleitez MD Work Phone: [facility] 06-23-2025 10:30-0400 Respiratory rate 16 /min Ronaldo Pleitez MD Work Phone: [facility] 06-23-2025 10:30-0400 SaO2% (BldA) [Mass fraction] 96 % Ronaldo Pleitez MD Work Phone: [facility] 06-23-2025 10:30-0400 Systolic blood pressure 114 mm[Hg] Ronaldo Pleitez MD Work Phone: [facility] 06-21-2025 11:11-0400 Body mass index (BMI) [Ratio] 29.8 kg/m2 Ronaldo Pleitez MD Work Phone: [facility] 06-21-2025 11:11-0400 Body temperature 97.2 [degF] Ronaldo Pleitez MD Work Phone: [facility] 06-21-2025 11:11-0400 Body weight 86.3 kg Ronaldo Pleitez MD Work Phone: [facility] 06-21-2025 11:11-0400 Heart rate 72 /min Ronaldo Pleitez MD Work Phone: [facility] 06-21-2025 11:11-0400 Respiratory rate 16 /min Ronaldo Pleitez MD Work Phone: [facility] 06-19-2025 00:29-0400 Body temperature 97.5 [degF] Dr. Ronaldo Pleitez MD Work Phone: [facility] 06-19-2025 00:29-0400 Diastolic blood pressure 72 mm[Hg] Dr. Ronaldo Pleitez MD Work Phone: [facility] 06-19-2025 00:29-0400 Heart rate 82 /min Dr. Ronaldo Pleitez MD Work Phone: [facility] 06-19-2025 00:29-0400 Respiratory rate 20 /min Dr. Ronaldo Pleitez MD Work Phone: [facility] 06-19-2025 00:29-0400 SaO2% (BldA) [Mass fraction] 97 % Dr. Ronaldo Pleitez MD Work Phone: [facility] 06-19-2025 00:29-0400 Systolic blood pressure 122 mm[Hg] Dr. Ronaldo Pleitez MD Work Phone: 1(347)859-234250 [place] [address] 06-18-2025 21:23-0400 Body mass index (BMI) [Ratio] 29.4 kg/m2 Dr. Ronaldo Pleitez MD Work Phone: 0(666)384-498150 [place] [address] 06-18-2025 21:23-0400 Body weight 85.[address] Ronaldo Pleitez MD Work Phone: 2(837)615-779641 [place] [address] 06-18-2025 20:55-0400 Body height 170.[address] Ronaldo Pleitez MD Work Phone: [facility] 06-09-2025 09:53-0400 Body temperature 97 [degF] Injection Wstr Work Phone: [facility] 06-09-2025 09:53-0400 Diastolic blood pressure 64 mm[Hg] Injection Wstr Work Phone: [facility] 06-09-2025 09:53-0400 Heart rate 81 /min Injection Wstr Work Phone: [facility] 06-09-2025 09:53-0400 Respiratory rate 12 /min Injection Wstr Work Phone: [facility] 06-09-2025 09:53-0400 SaO2% (BldA) [Mass fraction] 95 % Injection Wstr Work Phone: [facility] 06-09-2025 09:53-0400 Systolic blood pressure 122 mm[Hg] Injection Wstr Work Phone: [facility] 06-05-2025 14:37-0400 Body mass index (BMI) [Ratio] 25.84 kg/m2 Arabella SandersTiffanie PRODUCT DEVELOPMENT MANAGER.TELEPHONE ORDER SUPERVISOR Work Phone: [facility] 06-05-2025 14:37-0400 Body weight 74.84 kg Arabella Tiffanie PRODUCT DEVELOPMENT MANAGER.TELEPHONE ORDER SUPERVISOR Work Phone: [facility] 06-05-2025 14:37-0400 Diastolic blood pressure 82 mm[Hg] Arabella Tiffanie PRODUCT DEVELOPMENT MANAGER.TELEPHONE ORDER SUPERVISOR Work Phone: [facility] 06-05-2025 14:37-0400 Heart rate 84 /min Arabella Tiffanie PRODUCT DEVELOPMENT MANAGER.TELEPHONE ORDER SUPERVISOR Work Phone: [facility] 06-05-2025 14:37-0400 Respiratory rate 12 /min Arabella Tiffanie PRODUCT DEVELOPMENT MANAGER.TELEPHONE ORDER SUPERVISOR Work Phone: [facility] 06-05-2025 14:37-0400 SaO2% (BldA) [Mass fraction] 94 % Arabella Tiffanie PRODUCT DEVELOPMENT MANAGER.TELEPHONE ORDER SUPERVISOR Work Phone: [facility] 06-05-2025 14:37-0400 Systolic blood pressure 124 mm[Hg] Arabella Tiffanie PRODUCT DEVELOPMENT MANAGER.TELEPHONE ORDER SUPERVISOR Work Phone: [facility] 05-30-2025 12:49-0400 Body mass index (BMI) [Ratio] 25.84 kg/m2 Arabella Tiffanie PRODUCT DEVELOPMENT MANAGER.TELEPHONE ORDER SUPERVISOR Work Phone: [facility] 05-30-2025 12:49-0400 Body weight 74.84 kg Arabella Tiffanie PRODUCT DEVELOPMENT MANAGER.TELEPHONE ORDER SUPERVISOR Work Phone: [facility] 05-30-2025 12:49-0400 Diastolic blood pressure 74 mm[Hg] Arabella Tiffanie PRODUCT DEVELOPMENT MANAGER.TELEPHONE ORDER SUPERVISOR Work Phone: [facility] 05-30-2025 12:49-0400 Heart rate 74 /min Arabella Tiffanie PRODUCT DEVELOPMENT MANAGER.TELEPHONE ORDER SUPERVISOR Work Phone: [facility] 05-30-2025 12:49-0400 Respiratory rate 12 /min Arabella Tiffanie PRODUCT DEVELOPMENT MANAGER.TELEPHONE ORDER SUPERVISOR Work Phone: [facility] 05-30-2025 12:49-0400 SaO2% (BldA) [Mass fraction] 98 % Arabella Tiffanie PRODUCT DEVELOPMENT MANAGER.TELEPHONE ORDER SUPERVISOR Work Phone: [facility] 05-30-2025 12:49-0400 Systolic blood pressure 116 mm[Hg] Arabella Tiffanie PRODUCT DEVELOPMENT MANAGER.TELEPHONE ORDER SUPERVISOR Work Phone: [facility] 05-26-2025 09:47-0400 Diastolic blood pressure 54 mm[Hg] Injection Wstr Work Phone: [facility] 05-26-2025 09:47-0400 Heart rate 84 /min Injection Wstr Work Phone: [facility] 05-26-2025 09:47-0400 Respiratory rate 12 /min Injection Wstr Work Phone: [facility] 05-26-2025 09:47-0400 SaO2% (BldA) [Mass fraction] 97 % Injection Wstr Work Phone: [facility] 05-26-2025 09:47-0400 Systolic blood pressure 100 mm[Hg] Injection Wstr Work Phone: [facility] 05-25-2025 14:48-0400 Body mass index (BMI) [Ratio] 25.9 kg/m2 Arabella Tiffanie PRODUCT DEVELOPMENT MANAGER.TELEPHONE ORDER SUPERVISOR Work Phone: [facility] 05-25-2025 14:48-0400 Body weight 75 kg Arabella Tiffanie PRODUCT DEVELOPMENT MANAGER.TELEPHONE ORDER SUPERVISOR Work Phone: [facility] 05-25-2025 14:48-0400 Diastolic blood pressure 56 mm[Hg] Arabella Tiffanie PRODUCT DEVELOPMENT MANAGER.TELEPHONE ORDER SUPERVISOR Work Phone: [facility] 05-25-2025 14:48-0400 Heart rate 79 /min Arabella Tiffanie PRODUCT DEVELOPMENT MANAGER.TELEPHONE ORDER SUPERVISOR Work Phone: [facility] 05-25-2025 14:48-0400 Respiratory rate 16 /min Arabella Tiffanie PRODUCT DEVELOPMENT MANAGER.TELEPHONE ORDER SUPERVISOR Work Phone: [facility] 05-25-2025 14:48-0400 Systolic blood pressure 104 mm[Hg] Arabella Moreno PRODUCT DEVELOPMENT MANAGER.TELEPHONE ORDER SUPERVISOR Work Phone: [facility] 05-11-2025 09:58-0400 Body temperature 98.01 [degF] Injection Wstr Work Phone: [facility] 05-11-2025 09:58-0400 Diastolic blood pressure 72 mm[Hg] Injection Wstr Work Phone: [facility] 05-11-2025 09:58-0400 Heart rate 74 /min Injection Wstr Work Phone: [facility] 05-11-2025 09:58-0400 Respiratory rate 12 /min Injection Wstr Work Phone: [facility] 05-11-2025 09:58-0400 SaO2% (BldA) [Mass fraction] 94 % Injection Wstr Work Phone: [facility] 05-11-2025 09:58-0400 Systolic blood pressure 116 mm[Hg] Injection Wstr Work Phone: [facility] 04-28-2025 09:49-0400 Diastolic blood pressure 49 mm[Hg] Injection Wstr Work Phone: [facility] 04-28-2025 09:49-0400 Heart rate 78 /min Injection Wstr Work Phone: [facility] 04-28-2025 09:49-0400 Respiratory rate 12 /min Injection Wstr Work Phone: [facility] 04-28-2025 09:49-0400 SaO2% (BldA) [Mass fraction] 95 % Injection Wstr Work Phone: [facility] 04-28-2025 09:49-0400 Systolic blood pressure 97 mm[Hg] Injection Wstr Work Phone: [facility] 04-07-2025 11:21-0400 Body height 170.2 cm Iram Johnson APRN.TELEPHONE ORDER SUPERVISOR Work Phone: [facility] 04-07-2025 11:21-0400 Body mass index (BMI) [Ratio] 27.1 kg/m2 Iram Johnson PRODUCT DEVELOPMENT MANAGER.TELEPHONE ORDER SUPERVISOR Work Phone: [facility] 04-07-2025 11:21-0400 Body weight 78.47 kg Iram Johnson PRODUCT DEVELOPMENT MANAGER.TELEPHONE ORDER SUPERVISOR Work Phone: [facility] 04-07-2025 11:21-0400 Diastolic blood pressure 68 mm[Hg] Iram Johnson PRODUCT DEVELOPMENT MANAGER.TELEPHONE ORDER SUPERVISOR Work Phone: [facility] 04-07-2025 11:21-0400 Heart rate 83 /min Iram Johnson PRODUCT DEVELOPMENT MANAGER.TELEPHONE ORDER SUPERVISOR Work Phone: [facility] 04-07-2025 11:21-0400 Systolic blood pressure 130 mm[Hg] Iram Johnson PRODUCT DEVELOPMENT MANAGER.TELEPHONE ORDER SUPERVISOR Work Phone: [facility] 03-27-2025 14:49-0400 Body mass index (BMI) [Ratio] 27.28 kg/m2 Roanldo Pleitez MD Work Phone: [facility] 03-27-2025 14:49-0400 Body weight 79 kg Ronaldo Pleitez MD Work Phone: [facility] 03-27-2025 14:49-0400 Diastolic blood pressure 58 mm[Hg] Ronaldo Pleitez MD Work Phone: [facility] 03-27-2025 14:49-0400 Heart rate 68 /min Ronaldo Pleitez MD Work Phone: [facility] 03-27-2025 14:49-0400 Respiratory rate 16 /min Ronaldo Pleitez MD Work Phone: [facility] 03-27-2025 14:49-0400 Systolic blood pressure 106 mm[Hg] Ronaldo Pleitez MD Work Phone: [facility] 03-17-2025 14:16-0400 Body temperature 97.59 [degF] Injection Wstr Work Phone: [facility] 03-17-2025 14:16-0400 Diastolic blood pressure 57 mm[Hg] Injection Wstr Work Phone: [facility] 03-17-2025 14:16-0400 Heart rate 55 /min Injection Wstr Work Phone: [facility] 03-17-2025 14:16-0400 Respiratory rate 12 /min Injection Wstr Work Phone: [facility] 03-17-2025 14:16-0400 SaO2% (BldA) [Mass fraction] 95 % Injection Wstr Work Phone: [facility] 03-17-2025 14:16-0400 Systolic blood pressure 116 mm[Hg] Injection Wstr Work Phone: [facility] 02-17-2025 09:55-0400 Body temperature 97.7 [degF] Injection Wstr Work Phone: [facility] 02-17-2025 09:55-0400 Diastolic blood pressure 57 mm[Hg] Injection Wstr Work Phone: [facility] Comment on above: DENIES ANY DIZZINESS 02-17-2025 09:55-0400 Heart rate 79 /min Injection Wstr Work Phone: [facility] 02-17-2025 09:55-0400 Respiratory rate 12 /min Injection Wstr Work Phone: [facility] 02-17-2025 09:55-0400 SaO2% (BldA) [Mass fraction] 93 % Injection Wstr Work Phone: [facility] 02-17-2025 09:55-0400 Systolic blood pressure 95 mm[Hg] Injection Wstr Work Phone: [facility] Comment on above: DENIES ANY DIZZINESS 02-03-2025 10:32-0400 Diastolic blood pressure 65 mm[Hg] Injection Wstr Work Phone: [facility] 02-03-2025 10:32-0400 Heart rate 83 /min Injection Wstr Work Phone: [facility] 02-03-2025 10:32-0400 Respiratory rate 12 /min Injection Wstr Work Phone: [facility] 02-03-2025 10:32-0400 SaO2% (BldA) [Mass fraction] 94 % Injection Wstr Work Phone: [facility] 02-03-2025 10:32-0400 Systolic blood pressure 100 mm[Hg] Injection Wstr Work Phone: [facility] 01-31-2025 10:54-0400 Body mass index (BMI) [Ratio] 26.55 kg/m2 Arabella Tiffanie PRODUCT DEVELOPMENT MANAGER.TELEPHONE ORDER SUPERVISOR Work Phone: [facility] 01-31-2025 10:54-0400 Body weight 76.9 kg Arabella Tiffanie PRODUCT DEVELOPMENT MANAGER.TELEPHONE ORDER SUPERVISOR Work Phone: [facility] 01-31-2025 10:54-0400 Diastolic blood pressure 78 mm[Hg] Arabella Tiffanie PRODUCT DEVELOPMENT MANAGER.TELEPHONE ORDER SUPERVISOR Work Phone: [facility] 01-31-2025 10:54-0400 Heart rate 78 /min Arabella Tiffanie PRODUCT DEVELOPMENT MANAGER.TELEPHONE ORDER SUPERVISOR Work Phone: [facility] 01-31-2025 10:54-0400 Respiratory rate 14 /min Arabella Tiffanie PRODUCT DEVELOPMENT MANAGER.TELEPHONE ORDER SUPERVISOR Work Phone: [facility] 01-31-2025 10:54-0400 SaO2% (BldA) [Mass fraction] 98 % Arabella Tiffanie PRODUCT DEVELOPMENT MANAGER.TELEPHONE ORDER SUPERVISOR Work Phone: [facility] 01-31-2025 10:54-0400 Systolic blood pressure 126 mm[Hg] Arabella Tiffanie PRODUCT DEVELOPMENT MANAGER.TELEPHONE ORDER SUPERVISOR Work Phone: [facility] 01-20-2025 10:36-0400 Body temperature 98.2 [degF] Injection Wstr Work Phone: [facility] 01-20-2025 10:36-0400 Diastolic blood pressure 69 mm[Hg] Injection Wstr Work Phone: [facility] 01-20-2025 10:36-0400 Heart rate 83 /min Injection Wstr Work Phone: [facility] 01-20-2025 10:36-0400 SaO2% (BldA) [Mass fraction] 94 % Injection Wstr Work Phone: [facility] 01-20-2025 10:36-0400 Systolic blood pressure 112 mm[Hg] Injection Wstr Work Phone: [facility] 01-06-2025 10:35-0500 Body mass index (BMI) [Ratio] 26.86 kg/m2 Baljinder Masci DO Work Phone: [facility] 01-06-2025 10:35-0500 Body temperature 97.2 [degF] Baljinder Masci DO Work Phone: [facility] 01-06-2025 10:35-0500 Body weight 77.79 kg Baljinder Masci DO Work Phone: [facility] 01-06-2025 10:35-0500 Diastolic blood pressure 70 mm[Hg] Baljinder Masci DO Work Phone: [facility] 01-06-2025 10:35-0500 Heart rate 83 /min Baljinder Masci DO Work Phone: [facility] 01-06-2025 10:35-0500 SaO2% (BldA) [Mass fraction] 93 % Baljinder Masci DO Work Phone: [facility] 01-06-2025 10:35-0500 Systolic blood pressure 115 mm[Hg] Baljinder Masci DO Work Phone: [facility] 12-23-2024 10:02-0500 Body mass index (BMI) [Ratio] 26.94 kg/m2 Injection Wstr Work Phone: [facility] 12-23-2024 10:02-0500 Body weight 78.02 kg Injection Wstr Work Phone: [facility] 12-23-2024 10:02-0500 Diastolic blood pressure 64 mm[Hg] Injection Wstr Work Phone: [facility] 12-23-2024 10:02-0500 Heart rate 82 /min Injection Wstr Work Phone: [facility] 12-23-2024 10:02-0500 Respiratory rate 12 /min Injection Wstr Work Phone: [facility] 12-23-2024 10:02-0500 SaO2% (BldA) [Mass fraction] 92 % Injection Wstr Work Phone: [facility] 12-23-2024 10:02-0500 Systolic blood pressure 106 mm[Hg] Injection Wstr Work Phone: [facility] 12-09-2024 11:32-0500 Body mass index (BMI) [Ratio] 26.94 kg/m2 Injection Wstr Work Phone: [facility] 12-09-2024 11:32-0500 Body temperature 98.1 [degF] Injection Wstr Work Phone: [facility] 12-09-2024 11:32-0500 Body weight 78.02 kg Injection Wstr Work Phone: [facility] 12-09-2024 11:32-0500 Diastolic blood pressure 68 mm[Hg] Injection Wstr Work Phone: [facility] 12-09-2024 11:32-0500 Heart rate 87 /min Injection Wstr Work Phone: [facility] 12-09-2024 11:32-0500 SaO2% (BldA) [Mass fraction] 94 % Injection Wstr Work Phone: [facility] 12-09-2024 11:32-0500 Systolic blood pressure 108 mm[Hg] Injection Wstr Work Phone: [facility] 11-24-2024 13:07-0500 Body mass index (BMI) [Ratio] 26.94 kg/m2 Injection Wstr Work Phone: [facility] 11-24-2024 13:07-0500 Body temperature 97.7 [degF] Injection Wstr Work Phone: [facility] 11-24-2024 13:07-0500 Body weight 78.02 kg Injection Wstr Work Phone: [facility] 11-24-2024 13:07-0500 Diastolic blood pressure 80 mm[Hg] Injection Wstr Work Phone: [facility] 11-24-2024 13:07-0500 Heart rate 83 /min Injection Wstr Work Phone: [facility] 11-24-2024 13:07-0500 Respiratory rate 12 /min Injection Wstr Work Phone: [facility] 11-24-2024 13:07-0500 SaO2% (BldA) [Mass fraction] 98 % Injection Wstr Work Phone: [facility] 11-24-2024 13:07-0500 Systolic blood pressure 119 mm[Hg] Injection Wstr Work Phone: [facility] 10-11-2024 10:06-0500 Body mass index (BMI) [Ratio] 27.41 kg/m2 Baljinder Masci DO Work Phone: [facility] 10-11-2024 10:06-0500 Body temperature 98.49 [degF] Baljinder Masci DO Work Phone: [facility] 10-11-2024 10:06-0500 Body weight 79.38 kg Baljinder Masci DO Work Phone: [facility] 10-11-2024 10:06-0500 Diastolic blood pressure 63 mm[Hg] Baljinder Masci DO Work Phone: [facility] 10-11-2024 10:06-0500 Heart rate 79 /min Baljinder Masci DO Work Phone: [facility] 10-11-2024 10:06-0500 SaO2% (BldA) [Mass fraction] 92 % Baljinder Masci DO Work Phone: [facility] 10-11-2024 10:06-0500 Systolic blood pressure 102 mm[Hg] Baljinder Masci DO Work Phone: [facility] 09-27-2024 11:02-0500 Body height 170.2 cm Iram Johnson APRN.TELEPHONE ORDER SUPERVISOR Work Phone: [facility] 09-27-2024 11:02-0500 Body mass index (BMI) [Ratio] 26.94 kg/m2 Iram Johnson PRODUCT DEVELOPMENT MANAGER.TELEPHONE ORDER SUPERVISOR Work Phone: [facility] 09-27-2024 11:02-0500 Body weight 78.02 kg Iram Johnson PRODUCT DEVELOPMENT MANAGER.TELEPHONE ORDER SUPERVISOR Work Phone: [facility] 09-27-2024 11:02-0500 Diastolic blood pressure 58 mm[Hg] Iram Johnson PRODUCT DEVELOPMENT MANAGER.TELEPHONE ORDER SUPERVISOR Work Phone: [facility] 09-27-2024 11:02-0500 Heart rate 62 /min Iram Johnson PRODUCT DEVELOPMENT MANAGER.TELEPHONE ORDER SUPERVISOR Work Phone: [facility] 09-27-2024 11:02-0500 Systolic blood pressure 116 mm[Hg] Iram Johnson PRODUCT DEVELOPMENT MANAGER.TELEPHONE ORDER SUPERVISOR Work Phone: [facility] 09-15-2024 11:34-0500 Body mass index (BMI) [Ratio] 26.94 kg/m2 Lauri Cook Work Phone: [facility] 09-15-2024 11:34-0500 Body temperature 98.2 [degF] Lauri Cook Work Phone: [facility] 09-15-2024 11:34-0500 Body weight 78.02 kg Lauri Cook Work Phone: [facility] 09-15-2024 11:34-0500 Diastolic blood pressure 70 mm[Hg] Lauri Cook Work Phone: [facility] 09-15-2024 11:34-0500 Heart rate 77 /min Lauri Cook Work Phone: [facility] 09-15-2024 11:34-0500 SaO2% (BldA) [Mass fraction] 94 % Lauri Cook Work Phone: [facility] 09-15-2024 11:34-0500 Systolic blood pressure 109 mm[Hg] Lauri Cook Work Phone: [facility] 07-29-2024 11:11-0400 Body mass index (BMI) [Ratio] 26.83 kg/m2 Ronaldo Pleitez MD Work Phone: [facility] 07-29-2024 11:11-0400 Body temperature 98.4 [degF] Ronaldo Pleitez MD Work Phone: [facility] 07-29-2024 11:11-0400 Body weight 77.7 kg Ronaldo Pleitez MD Work Phone: [facility] 07-29-2024 11:11-0400 Diastolic blood pressure 70 mm[Hg] Ronaldo Pleitez MD Work Phone: [facility] 07-29-2024 11:11-0400 Heart rate 80 /min Ronaldo Pleitez MD Work Phone: [facility] 07-29-2024 11:11-0400 Respiratory rate 18 /min Ronaldo Pleitez MD Work Phone: [facility] 07-29-2024 11:11-0400 SaO2% (BldA) [Mass fraction] 97 % Ronaldo Pleitez MD Work Phone: [facility] 07-29-2024 11:11-0400 Systolic blood pressure 118 mm[Hg] Ronaldo Pleitez MD Work Phone: [facility] 06-16-2024 08:51-0400 Body mass index (BMI) [Ratio] 27.1 kg/m2 Baljinder Robbinsi DO Work Phone: [facility] 06-16-2024 08:51-0400 Body temperature 98.1 [degF] Baljinder Robbinsi DO Work Phone: [facility] 06-16-2024 08:51-0400 Body weight 78.47 kg Baljinder Robbinsi DO Work Phone: [facility] 06-16-2024 08:51-0400 Diastolic blood pressure 55 mm[Hg] Baljinder Robbinsi DO Work Phone: [facility] 06-16-2024 08:51-0400 Heart rate 81 /min Baljinder Robbinsi DO Work Phone: [facility] 06-16-2024 08:51-0400 SaO2% (BldA) [Mass fraction] 96 % Baljinder Robbinsi DO Work Phone: [facility] 06-16-2024 08:51-0400 Systolic blood pressure 102 mm[Hg] Baljinder Masci DO Work Phone: [facility] 03-17-2024 11:42-0400 Body mass index (BMI) [Ratio] 26.08 kg/m2 Baljinder Masci DO Work Phone: [facility] 03-17-2024 11:42-0400 Body temperature 98.01 [degF] Baljinder Masci DO Work Phone: [facility] 03-17-2024 11:42-0400 Body weight 75.52 kg Baljinder Masci DO Work Phone: [facility] 03-17-2024 11:42-0400 Diastolic blood pressure 58 mm[Hg] Baljinder Robbinsi DO Work Phone: [facility] 03-17-2024 11:42-0400 Heart rate 76 /min Baljinder Masci DO Work Phone: [facility] 03-17-2024 11:42-0400 SaO2% (BldA) [Mass fraction] 95 % Baljinder Masci DO Work Phone: [facility] 03-17-2024 11:42-0400 Systolic blood pressure 102 mm[Hg] Baljinder Robbinsi DO Work Phone: [facility] 02-29-2024 14:10-0400 Body height 170.2 cm Iram Johnson APRN.TELEPHONE ORDER SUPERVISOR Work Phone: [facility] 02-29-2024 14:10-0400 Body mass index (BMI) [Ratio] 25.53 kg/m2 Iram Johnson PRODUCT DEVELOPMENT MANAGER.TELEPHONE ORDER SUPERVISOR Work Phone: [facility] 02-29-2024 14:10-0400 Body weight 73.94 kg Iram Johnson PRODUCT DEVELOPMENT MANAGER.TELEPHONE ORDER SUPERVISOR Work Phone: [facility] 02-29-2024 14:10-0400 Diastolic blood pressure 78 mm[Hg] Iram Johnson APRN.TELEPHONE ORDER SUPERVISOR Work Phone: [facility] 02-29-2024 14:10-0400 Heart rate 62 /min Iram Johnson PRODUCT DEVELOPMENT MANAGER.TELEPHONE ORDER SUPERVISOR Work Phone: [facility] 02-29-2024 14:10-0400 Systolic blood pressure 140 mm[Hg] Iram Johnson PRODUCT DEVELOPMENT MANAGER.TELEPHONE ORDER SUPERVISOR Work Phone: [facility] 01-22-2024 10:57-0400 Body height 168.9 cm Ronaldo Pleitez MD Work Phone: [facility] 01-22-2024 10:57-0400 Body weight 75.43 kg Ronaldo Pleitez MD Work Phone: [facility] 01-22-2024 10:57-0400 Diastolic blood pressure 64 mm[Hg] Ronaldo Pleitez MD Work Phone: [facility] 01-22-2024 10:57-0400 Heart rate 68 /min Ronaldo Pleitez MD Work Phone: [facility] 01-22-2024 10:57-0400 Respiratory rate 18 /min Ronaldo Pleitez MD Work Phone: [facility] 01-22-2024 10:57-0400 Systolic blood pressure 118 mm[Hg] Ronaldo Pleitez MD Work Phone: [facility] 12-24-2023 11:12-0500 Body temperature 98.2 [degF] Baljinder Masci DO Work Phone: [facility] 12-24-2023 11:12-0500 Body weight 73.71 kg Baljinder Masci DO Work Phone: [facility] 12-24-2023 11:12-0500 Diastolic blood pressure 84 mm[Hg] Baljinder Masci DO Work Phone: [facility] 12-24-2023 11:12-0500 Heart rate 65 /min Baljinder Masci DO Work Phone: [facility] 12-24-2023 11:12-0500 SaO2% (BldA) [Mass fraction] 97 % Baljinder Masci DO Work Phone: [facility] 12-24-2023 11:12-0500 Systolic blood pressure 125 mm[Hg] Baljinder Masci DO Work Phone: [facility] 12-23-2023 11:07-0500 Body temperature 97.2 [degF] Ronaldo Pleitez MD Work Phone: [facility] 12-23-2023 11:07-0500 Body weight 73.94 kg Ronaldo Pleitez MD Work Phone: [facility] 12-23-2023 11:07-0500 Diastolic blood pressure 58 mm[Hg] Ronaldo Pleitez MD Work Phone: [facility] 12-23-2023 11:07-0500 Heart rate 60 /min Ronaldo Pleitez MD Work Phone: [facility] 12-23-2023 11:07-0500 Respiratory rate 20 /min Ronaldo Pleitez MD Work Phone: [facility] 12-23-2023 11:07-0500 Systolic blood pressure 100 mm[Hg] Ronaldo Pleitez MD Work Phone: [facility] 09-30-2023 09:57-0500 Body temperature 98.49 [degF] Baljinder Masci DO Work Phone: [facility] 09-30-2023 09:57-0500 Body weight 73.03 kg Baljinder Masci DO Work Phone: [facility] 09-30-2023 09:57-0500 Diastolic blood pressure 56 mm[Hg] Baljinder Masci DO Work Phone: [facility] 09-30-2023 09:57-0500 Heart rate 59 /min Baljinder Masci DO Work Phone: [facility] 09-30-2023 09:57-0500 Respiratory rate 16 /min Baljinder Masci DO Work Phone: [facility] 09-30-2023 09:57-0500 SaO2% (BldA) [Mass fraction] 99 % Baljinder Masci DO Work Phone: [facility] 09-30-2023 09:57-0500 Systolic blood pressure 107 mm[Hg] Baljinder Galloway DO Work Phone: [facility] 07-24-2023 10:06-0400 Body weight 73.48 kg Arabella Older PRODUCT DEVELOPMENT MANAGER.TELEPHONE ORDER SUPERVISOR Work Phone: [facility] 07-24-2023 10:06-0400 Diastolic blood pressure 72 mm[Hg] Arabella Older PRODUCT DEVELOPMENT MANAGER.TELEPHONE ORDER SUPERVISOR Work Phone: [facility] 07-24-2023 10:06-0400 Heart rate 58 /min Arabella Older PRODUCT DEVELOPMENT MANAGER.TELEPHONE ORDER SUPERVISOR Work Phone: [facility] 07-24-2023 10:06-0400 Respiratory rate 16 /min Arabella Older PRODUCT DEVELOPMENT MANAGER.TELEPHONE ORDER SUPERVISOR Work Phone: [facility] 07-24-2023 10:06-0400 SaO2% (BldA) [Mass fraction] 97 % Arabella Older PRODUCT DEVELOPMENT MANAGER.TELEPHONE ORDER SUPERVISOR Work Phone: [facility] 07-24-2023 10:06-0400 Systolic blood pressure 124 mm[Hg] Arabella Older PRODUCT DEVELOPMENT MANAGER.TELEPHONE ORDER SUPERVISOR Work Phone: [facility] 07-23-2023 10:22-0400 Body height 170.2 cm Iram Johnson PRODUCT DEVELOPMENT MANAGER.TELEPHONE ORDER SUPERVISOR Work Phone: [facility] 07-23-2023 10:22-0400 Body weight 73.94 kg Iram Johnson PRODUCT DEVELOPMENT MANAGER.TELEPHONE ORDER SUPERVISOR Work Phone: [facility] 07-23-2023 10:22-0400 Diastolic blood pressure 60 mm[Hg] Iram Johnson PRODUCT DEVELOPMENT MANAGER.TELEPHONE ORDER SUPERVISOR Work Phone: [facility] 07-23-2023 10:22-0400 Heart rate 69 /min Iram Johnson PRODUCT DEVELOPMENT MANAGER.TELEPHONE ORDER SUPERVISOR Work Phone: [facility] 07-23-2023 10:22-0400 Systolic blood pressure 110 mm[Hg] Iram Johnson PRODUCT DEVELOPMENT MANAGER.TELEPHONE ORDER SUPERVISOR Work Phone: [facility] 05-22-2023 12:20-0400 Body temperature 97.4 [degF] Dr. Pedro Diaz Work Phone: [facility] 05-22-2023 12:20-0400 Diastolic blood pressure 49 mm[Hg] Dr. Pedro Diaz Work Phone: 1(462)932-926426 [place] [address] 05-22-2023 12:20-0400 Heart rate 59 /min Dr. Pedro Diaz Work Phone: 3(091)652-707226 [place] [address] 05-22-2023 12:20-0400 Respiratory rate 16 /min Dr. Pedro Diaz Work Phone: 8(150)383-307726 [place] [address] 05-22-2023 12:20-0400 SaO2% (BldA) [Mass fraction] 93 % Dr. Pedro Diaz Work Phone: 5(804)461-633626 [place] [address] 05-22-2023 12:20-0400 Systolic blood pressure 127 mm[Hg] Dr. Pedro Diaz Work Phone: 7(797)[phone] [place] [address] 05-22-2023 09:15-0400 Body height 170.[address] Pedro Diaz Work Phone: [facility] 05-18-2023 16:30-0400 Body temperature 97.9 [degF] Dr. Pedro Diaz Work Phone: 9(840)340-516726 [place] [address] 05-18-2023 16:30-0400 Diastolic blood pressure 74 mm[Hg] Dr. Pedro Diaz Work Phone: [facility] 05-18-2023 16:30-0400 Heart rate 54 /min Dr. Pedro Diaz Work Phone: [facility] 05-18-2023 16:30-0400 Respiratory rate 18 /min Dr. Pedro Diaz Work Phone: [facility] 05-18-2023 16:30-0400 SaO2% (BldA) [Mass fraction] 96 % Dr. Pedro Diaz Work Phone: [facility] 05-18-2023 16:30-0400 Systolic blood pressure 125 mm[Hg] Dr. Pedro Diaz Work Phone: [facility] 05-18-2023 09:43-0400 Diastolic blood pressure 81 mm[Hg] Dr. Pedro Diaz Work Phone: [facility] 05-18-2023 09:43-0400 Heart rate 52 /min Dr. Pedro Diaz Work Phone: [facility] 05-18-2023 09:43-0400 Systolic blood pressure 130 mm[Hg] Dr. Pedro Diaz Work Phone: [facility] 05-18-2023 08:45-0400 Body temperature 97.8 [degF] Dr. Pedro Diaz Work Phone: [facility] 05-18-2023 08:45-0400 Respiratory rate 16 /min Dr. Pedro Diaz Work Phone: [facility] 05-18-2023 08:45-0400 SaO2% (BldA) [Mass fraction] 95 % Dr. Pedro Diaz Work Phone: [facility] 05-18-2023 08:00-0400 Body mass index (BMI) [Ratio] 28.5 kg/m2 Dr. Pedro Diaz Work Phone: [facility] 05-18-2023 08:00-0400 Body weight 82.[address] Pedro Diaz Work Phone: [facility] 05-17-2023 03:59-0400 Body mass index (BMI) [Ratio] 28.6 kg/m2 Dr. Pedro Diaz Work Phone: [facility] 05-17-2023 03:59-0400 Body weight [address] Pedro Diaz Work Phone: [facility] 05-16-2023 12:42-0400 Inhaled oxygen flow rate 2 L/min Dr. Pedro Diaz Work Phone: [facility] 05-14-2023 18:22-0400 Body height 170.[address] Pedro Diaz Work Phone: [facility] 05-14-2023 16:25-0400 Body temperature 99.2 [degF] Dr. Ned Dinh Work Phone: [facility] 05-14-2023 16:25-0400 Diastolic blood pressure 59 mm[Hg] Dr. Ned Dinh Work Phone: [facility] 05-14-2023 16:25-0400 Heart rate 60 /min Dr. Ned Dinh Work Phone: [facility] 05-14-2023 16:25-0400 Inhaled oxygen flow rate 2 L/min Dr. Ned Dinh Work Phone: [facility] 05-14-2023 16:25-0400 Respiratory rate 16 /min Dr. Ned Dinh Work Phone: [facility] 05-14-2023 16:25-0400 SaO2% (BldA) [Mass fraction] 98 % Dr. Ned Dinh Work Phone: [facility] 05-14-2023 16:25-0400 Systolic blood pressure 112 mm[Hg] Dr. Ned Dinh Work Phone: [facility] 05-14-2023 12:19-0400 Body mass index (BMI) [Ratio] 28 kg/m2 Dr. eNd Dinh Work Phone: [facility] 05-14-2023 12:19-0400 Body weight 81.[address] Ned Dinh Work Phone: [facility] 05-14-2023 12:15-0400 Body height 170.[address] Ned Dinh Work Phone: [facility] 05-13-2023 14:04-0400 Body temperature 97.59 [degF] Treatment Wstr Work Phone: [facility] 05-13-2023 14:04-0400 Diastolic blood pressure 64 mm[Hg] Treatment Wstr Work Phone: [facility] 05-13-2023 14:04-0400 Heart rate 62 /min Treatment Wstr Work Phone: [facility] 05-13-2023 14:04-0400 Respiratory rate 16 /min Treatment Wstr Work Phone: [facility] 05-13-2023 14:04-0400 SaO2% (BldA) [Mass fraction] 97 % Treatment Wstr Work Phone: [facility] 05-13-2023 14:04-0400 Systolic blood pressure 140 mm[Hg] Treatment Wstr Work Phone: [facility] 05-11-2023 16:14-0400 Body height 170.2 cm Shorty Faith MD Work Phone: [facility] 05-11-2023 16:14-0400 Body temperature 97.59 [degF] Shorty Faith MD Work Phone: [facility] 05-11-2023 16:14-0400 Body weight 83.92 kg Shorty Faith MD Work Phone: [facility] 05-11-2023 16:14-0400 Diastolic blood pressure 56 mm[Hg] Shorty Faith MD Work Phone: [facility] 05-11-2023 16:14-0400 Heart rate 60 /min Shorty Faith MD Work Phone: [facility] 05-11-2023 16:14-0400 SaO2% (BldA) [Mass fraction] 98 % Shorty Faith MD Work Phone: [facility] 05-11-2023 16:14-0400 Systolic blood pressure 110 mm[Hg] Shorty Fatih MD Work Phone: [facility] 05-11-2023 15:12-0400 Body temperature 98.1 [degF] Treatment Wstr Work Phone: [facility] 05-11-2023 15:12-0400 Diastolic blood pressure 42 mm[Hg] Treatment Wstr Work Phone: [facility] 05-11-2023 15:12-0400 Heart rate 60 /min Treatment Wstr Work Phone: [facility] 05-11-2023 15:12-0400 Respiratory rate 16 /min Treatment Wstr Work Phone: [facility] 05-11-2023 15:12-0400 SaO2% (BldA) [Mass fraction] 95 % Treatment Wstr Work Phone: [facility] 05-11-2023 15:12-0400 Systolic blood pressure 116 mm[Hg] Treatment Wstr Work Phone: [facility] 05-08-2023 14:00-0400 Body temperature 97.2 [degF] Treatment Wstr Work Phone: [facility] 05-08-2023 14:00-0400 Diastolic blood pressure 74 mm[Hg] Treatment Wstr Work Phone: [facility] 05-08-2023 14:00-0400 Heart rate 64 /min Treatment Wstr Work Phone: [facility] 05-08-2023 14:00-0400 Respiratory rate 16 /min Treatment Wstr Work Phone: [facility] 05-08-2023 14:00-0400 SaO2% (BldA) [Mass fraction] 97 % Treatment Wstr Work Phone: [facility] 05-08-2023 14:00-0400 Systolic blood pressure 151 mm[Hg] Treatment Wstr Work Phone: [facility] 05-07-2023 14:03-0400 Body temperature 97.7 [degF] Treatment Wstr Work Phone: [facility] 05-07-2023 14:03-0400 Diastolic blood pressure 59 mm[Hg] Treatment Wstr Work Phone: [facility] 05-07-2023 14:03-0400 Heart rate 60 /min Treatment Wstr Work Phone: [facility] 05-07-2023 14:03-0400 SaO2% (BldA) [Mass fraction] 96 % Treatment Wstr Work Phone: [facility] 05-07-2023 14:03-0400 Systolic blood pressure 126 mm[Hg] Treatment Wstr Work Phone: [facility] 05-05-2023 12:56-0400 Body temperature 97.59 [degF] Treatment Wstr Work Phone: [facility] 05-05-2023 12:56-0400 Body weight 84.14 kg Treatment Wstr Work Phone: [facility] 05-05-2023 12:56-0400 Diastolic blood pressure 54 mm[Hg] Treatment Wstr Work Phone: [facility] 05-05-2023 12:56-0400 Heart rate 60 /min Treatment Wstr Work Phone: [facility] 05-05-2023 12:56-0400 SaO2% (BldA) [Mass fraction] 93 % Treatment Wstr Work Phone: [facility] 05-05-2023 12:56-0400 Systolic blood pressure 120 mm[Hg] Treatment Wstr Work Phone: [facility] 05-04-2023 14:04-0400 Body temperature 98.4 [degF] Treatment Wstr Work Phone: [facility] 05-04-2023 14:04-0400 Diastolic blood pressure 58 mm[Hg] Treatment Wstr Work Phone: [facility] 05-04-2023 14:04-0400 Heart rate 56 /min Treatment Wstr Work Phone: [facility] 05-04-2023 14:04-0400 Respiratory rate 16 /min Treatment Wstr Work Phone: [facility] 05-04-2023 14:04-0400 Systolic blood pressure 147 mm[Hg] Treatment Wstr Work Phone: [facility] 05-01-2023 12:41-0400 Body temperature 97.39 [degF] David Cervantes APRN.TELEPHONE ORDER SUPERVISOR Work Phone: [facility] 05-01-2023 12:41-0400 Body weight 83.23 kg David Cervantes PRODUCT DEVELOPMENT MANAGER.TELEPHONE ORDER SUPERVISOR Work Phone: [facility] 05-01-2023 12:41-0400 Diastolic blood pressure 52 mm[Hg] David Cervantes PRODUCT DEVELOPMENT MANAGER.TELEPHONE ORDER SUPERVISOR Work Phone: [facility] 05-01-2023 12:41-0400 Heart rate 61 /min Buckland Cervantes PRODUCT DEVELOPMENT MANAGER.TELEPHONE ORDER SUPERVISOR Work Phone: [facility] 05-01-2023 12:41-0400 SaO2% (BldA) [Mass fraction] 97 % Buckland Cervantes PRODUCT DEVELOPMENT MANAGER.TELEPHONE ORDER SUPERVISOR Work Phone: [facility] 05-01-2023 12:41-0400 Systolic blood pressure 111 mm[Hg] Buckland Cervantes PRODUCT DEVELOPMENT MANAGER.TELEPHONE ORDER SUPERVISOR Work Phone: [facility] 04-20-2023 13:30-0400 Body height 170.2 cm Israel Tirmonia DO Work Phone: [facility] 04-20-2023 13:30-0400 Body temperature 97 [degF] Israel Tirmonia DO Work Phone: [facility] 04-20-2023 13:30-0400 Body weight 82.01 kg Israel Tirmonia DO Work Phone: [facility] 04-20-2023 13:30-0400 Diastolic blood pressure 60 mm[Hg] Israel Tirmonia DO Work Phone: [facility] 04-20-2023 13:30-0400 Heart rate 61 /min Israel Tirmonia DO Work Phone: [facility] 04-20-2023 13:30-0400 SaO2% (BldA) [Mass fraction] 97 % Israel Tirmonia DO Work Phone: [facility] 04-20-2023 13:30-0400 Systolic blood pressure 102 mm[Hg] Israel Tirmonia DO Work Phone: [facility] 04-15-2023 14:00-0400 Body temperature 97.11 [degF] Treatment Wstr Work Phone: [facility] 04-15-2023 14:00-0400 Diastolic blood pressure 62 mm[Hg] Treatment Wstr Work Phone: [facility] 04-15-2023 14:00-0400 Heart rate 58 /min Treatment Wstr Work Phone: [facility] 04-15-2023 14:00-0400 Respiratory rate 18 /min Treatment Wstr Work Phone: [facility] 04-15-2023 14:00-0400 SaO2% (BldA) [Mass fraction] 95 % Treatment Wstr Work Phone: [facility] 04-15-2023 14:00-0400 Systolic blood pressure 135 mm[Hg] Treatment Wstr Work Phone: [facility] 04-14-2023 09:00-0400 Body temperature 97.59 [degF] Treatment Wstr Work Phone: [facility] 04-14-2023 09:00-0400 Diastolic blood pressure 69 mm[Hg] Treatment Wstr Work Phone: [facility] 04-14-2023 09:00-0400 Heart rate 77 /min Treatment Wstr Work Phone: [facility] 04-14-2023 09:00-0400 Respiratory rate 18 /min Treatment Wstr Work Phone: [facility] 04-14-2023 09:00-0400 SaO2% (BldA) [Mass fraction] 95 % Treatment Wstr Work Phone: [facility] 04-14-2023 09:00-0400 Systolic blood pressure 139 mm[Hg] Treatment Wstr Work Phone: [facility] 04-13-2023 15:42-0400 Body mass index (BMI) [Ratio] 27.6 kg/m2 Dr. Ned Dinh Work Phone: [facility] 04-13-2023 15:42-0400 Body weight 79.[address] Ned Dinh Work Phone: [facility] 04-13-2023 15:42-0400 Diastolic blood pressure 58 mm[Hg] Dr. Ned Dinh Work Phone: [facility] 04-13-2023 15:42-0400 Heart rate 59 /min Dr. Ned Dinh Work Phone: [facility] 04-13-2023 15:42-0400 Respiratory rate 16 /min Dr. Ned Dinh Work Phone: [facility] 04-13-2023 15:42-0400 SaO2% (BldA) [Mass fraction] 93 % Dr. Ned Dinh Work Phone: [facility] 04-13-2023 15:42-0400 Systolic blood pressure 108 mm[Hg] Dr. Ned Dinh Work Phone: [facility] 04-13-2023 10:24-0400 SaO2% (BldA) [Mass fraction] 94 % Treatment Wstr Work Phone: [facility] 04-13-2023 10:20-0400 Body temperature 97.7 [degF] Treatment Wstr Work Phone: [facility] 04-13-2023 10:20-0400 Diastolic blood pressure 61 mm[Hg] Treatment Wstr Work Phone: [facility] 04-13-2023 10:20-0400 Heart rate 63 /min Treatment Wstr Work Phone: [facility] 04-13-2023 10:20-0400 Systolic blood pressure 135 mm[Hg] Treatment Wstr Work Phone: [facility] 04-10-2023 10:15-0400 Body temperature 97.59 [degF] Treatment Wstr Work Phone: [facility] 04-10-2023 10:15-0400 Diastolic blood pressure 66 mm[Hg] Treatment Wstr Work Phone: [facility] 04-10-2023 10:15-0400 Heart rate 60 /min Treatment Wstr Work Phone: [facility] 04-10-2023 10:15-0400 Respiratory rate 16 /min Treatment Wstr Work Phone: [facility] 04-10-2023 10:15-0400 SaO2% (BldA) [Mass fraction] 95 % Treatment Wstr Work Phone: [facility] 04-10-2023 10:15-0400 Systolic blood pressure 131 mm[Hg] Treatment Wstr Work Phone: [facility] 04-09-2023 07:00-0400 Body temperature 97 [degF] Treatment Wstr Work Phone: [facility] 04-09-2023 07:00-0400 Body weight 81.87 kg Treatment Wstr Work Phone: [facility] 04-09-2023 07:00-0400 Diastolic blood pressure 64 mm[Hg] Treatment Wstr Work Phone: [facility] 04-09-2023 07:00-0400 Heart rate 59 /min Treatment Wstr Work Phone: [facility] 04-09-2023 07:00-0400 SaO2% (BldA) [Mass fraction] 96 % Treatment Wstr Work Phone: [facility] 04-09-2023 07:00-0400 Systolic blood pressure 136 mm[Hg] Treatment Wstr Work Phone: [facility] 04-08-2023 09:36-0400 Body temperature 97.81 [degF] Treatment Wstr Work Phone: [facility] 04-08-2023 09:36-0400 Body weight 80.97 kg Treatment Wstr Work Phone: [facility] 04-08-2023 09:36-0400 Diastolic blood pressure 65 mm[Hg] Treatment Wstr Work Phone: [facility] 04-08-2023 09:36-0400 Heart rate 59 /min Treatment Wstr Work Phone: [facility] 04-08-2023 09:36-0400 Respiratory rate 18 /min Treatment Wstr Work Phone: [facility] 04-08-2023 09:36-0400 SaO2% (BldA) [Mass fraction] 97 % Treatment Wstr Work Phone: [facility] 04-08-2023 09:36-0400 Systolic blood pressure 123 mm[Hg] Treatment Wstr Work Phone: [facility] 03-25-2023 11:51-0400 Body weight 74.84 kg Israel Tirmonia DO Work Phone: [facility] 03-25-2023 11:51-0400 Diastolic blood pressure 64 mm[Hg] Israel Tirmonia DO Work Phone: [facility] 03-25-2023 11:51-0400 Heart rate 76 /min Israel Tirmonia DO Work Phone: [facility] 03-25-2023 11:51-0400 Respiratory rate 16 /min Israel Tirmonia DO Work Phone: [facility] 03-25-2023 11:51-0400 Systolic blood pressure 112 mm[Hg] Israel Tirmonia DO Work Phone: [facility] 03-17-2023 08:38-0400 Body temperature 97.5 [degF] Chair Green Work Phone: [facility] 03-17-2023 08:38-0400 Diastolic blood pressure 81 mm[Hg] Chair Green Work Phone: [facility] 03-17-2023 08:38-0400 Heart rate 80 /min Chair Green Work Phone: [facility] 03-17-2023 08:38-0400 Systolic blood pressure 121 mm[Hg] Chair Green Work Phone: [facility] 03-16-2023 08:29-0400 Body temperature 98.6 [degF] Chair Green Work Phone: [facility] 03-16-2023 08:29-0400 Body weight 81.01 kg Chair Green Work Phone: [facility] 03-16-2023 08:29-0400 Diastolic blood pressure 55 mm[Hg] Chair Green Work Phone: [facility] 03-16-2023 08:29-0400 Heart rate 78 /min Chair Green Work Phone: [facility] 03-16-2023 08:29-0400 Respiratory rate 18 /min Chair Green Work Phone: [facility] 03-16-2023 08:29-0400 Systolic blood pressure 110 mm[Hg] Chair Green Work Phone: [facility] 03-13-2023 08:29-0400 Body temperature 97.7 [degF] Chair Green Work Phone: [facility] 03-13-2023 08:29-0400 Diastolic blood pressure 73 mm[Hg] Chair Green Work Phone: [facility] 03-13-2023 08:29-0400 Heart rate 92 /min Chair Green Work Phone: [facility] 03-13-2023 08:29-0400 Respiratory rate 18 /min Chair Green Work Phone: [facility] 03-13-2023 08:29-0400 Systolic blood pressure 113 mm[Hg] Chair Green Work Phone: [facility] 03-12-2023 14:32-0400 Body height 170.2 cm Israel Tirmonia DO Work Phone: [facility] 03-12-2023 14:32-0400 Body weight 78.93 kg Israel Tirmonia DO Work Phone: [facility] 03-12-2023 14:32-0400 Diastolic blood pressure 68 mm[Hg] Israel Tirmonia DO Work Phone: [facility] 03-12-2023 14:32-0400 Heart rate 90 /min Israel Tirmonia DO Work Phone: [facility] 03-12-2023 14:32-0400 Respiratory rate 16 /min Israel Pruitt DO Work Phone: [facility] 03-12-2023 14:32-0400 Systolic blood pressure 120 mm[Hg] Israel Pruitt DO Work Phone: [facility] 03-12-2023 08:25-0400 Body temperature 97.9 [degF] Chair Green Work Phone: [facility] 03-12-2023 08:25-0400 Diastolic blood pressure 55 mm[Hg] Chair Green Work Phone: [facility] 03-12-2023 08:25-0400 Heart rate 112 /min Chair Green Work Phone: [facility] 03-12-2023 08:25-0400 Respiratory rate 18 /min Chair Green Work Phone: [facility] 03-12-2023 08:25-0400 Systolic blood pressure 103 mm[Hg] Chair Green Work Phone: [facility] 03-11-2023 08:24-0400 Body temperature 97.7 [degF] Chair Green Work Phone: [facility] 03-11-2023 08:24-0400 Diastolic blood pressure 68 mm[Hg] Chair Green Work Phone: [facility] 03-11-2023 08:24-0400 Heart rate 96 /min Chair Green Work Phone: [facility] 03-11-2023 08:24-0400 Systolic blood pressure 110 mm[Hg] Chair Green Work Phone: [facility] 03-09-2023 08:26-0400 Body temperature 97.7 [degF] Chair Green Work Phone: [facility] 03-09-2023 08:26-0400 Body weight 82.46 kg Chair Green Work Phone: [facility] 03-09-2023 08:26-0400 Diastolic blood pressure 48 mm[Hg] Chair Green Work Phone: [facility] 03-09-2023 08:26-0400 Heart rate 66 /min Chair Green Work Phone: [facility] 03-09-2023 08:26-0400 Respiratory rate 18 /min Chair Green Work Phone: [facility] 03-09-2023 08:26-0400 Systolic blood pressure 100 mm[Hg] Chair Green Work Phone: [facility] 02-17-2023 08:36-0400 Body temperature 98.2 [degF] Chair Green Work Phone: [facility] 02-17-2023 08:36-0400 Diastolic blood pressure 57 mm[Hg] Chair Green Work Phone: [facility] 02-17-2023 08:36-0400 Heart rate 74 /min Chair Green Work Phone: [facility] 02-17-2023 08:36-0400 Systolic blood pressure 105 mm[Hg] Chair Green Work Phone: [facility] 02-16-2023 08:23-0400 Body temperature 97.7 [degF] Chair Green Work Phone: [facility] 02-16-2023 08:23-0400 Body weight 78.56 kg Chair Green Work Phone: [facility] 02-16-2023 08:23-0400 Diastolic blood pressure 82 mm[Hg] Chair Green Work Phone: [facility] 02-16-2023 08:23-0400 Heart rate 53 /min Chair Green Work Phone: [facility] 02-16-2023 08:23-0400 SaO2% (BldA) [Mass fraction] 100 % Chair Green Work Phone: [facility] 02-16-2023 08:23-0400 Systolic blood pressure 128 mm[Hg] Chair Green Work Phone: [facility] 02-13-2023 08:23-0400 Body temperature 97.7 [degF] Chair Green Work Phone: [facility] 02-13-2023 08:23-0400 Diastolic blood pressure 71 mm[Hg] Chair Green Work Phone: [facility] 02-13-2023 08:23-0400 Heart rate 72 /min Chair Green Work Phone: [facility] 02-13-2023 08:23-0400 Respiratory rate 18 /min Chair Green Work Phone: [facility] 02-13-2023 08:23-0400 Systolic blood pressure 127 mm[Hg] Chair Green Work Phone: [facility] 02-12-2023 08:52-0400 Body temperature 97.9 [degF] Chair Green Work Phone: [facility] 02-12-2023 08:52-0400 Diastolic blood pressure 72 mm[Hg] Chair Green Work Phone: [facility] 02-12-2023 08:52-0400 Heart rate 18 /min Chair Green Work Phone: [facility] 02-12-2023 08:52-0400 Systolic blood pressure 140 mm[Hg] Chair Green Work Phone: [facility] 02-11-2023 08:30-0400 Body temperature 97.9 [degF] Chair Green Work Phone: [facility] 02-11-2023 08:30-0400 Diastolic blood pressure 54 mm[Hg] Chair Green Work Phone: [facility] 02-11-2023 08:30-0400 Heart rate 53 /min Chair Green Work Phone: [facility] 02-11-2023 08:30-0400 Respiratory rate 16 /min Chair Green Work Phone: [facility] 02-11-2023 08:30-0400 Systolic blood pressure 112 mm[Hg] Chair Green Work Phone: [facility] 02-10-2023 08:32-0400 Body temperature 98.29 [degF] Chair Green Work Phone: [facility] 02-10-2023 08:32-0400 Diastolic blood pressure 63 mm[Hg] Chair Green Work Phone: [facility] 02-10-2023 08:32-0400 Heart rate 80 /min Chair Green Work Phone: [facility] 02-10-2023 08:32-0400 Respiratory rate 16 /min Chair Green Work Phone: [facility] 02-10-2023 08:32-0400 Systolic blood pressure 96 mm[Hg] Chair Green Work Phone: [facility] 02-09-2023 08:26-0400 Body temperature 97.9 [degF] Bed Green Work Phone: [facility] 02-09-2023 08:26-0400 Body weight 81.74 kg Bed Green Work Phone: [facility] 02-09-2023 08:26-0400 Diastolic blood pressure 82 mm[Hg] Bed Green Work Phone: [facility] 02-09-2023 08:26-0400 Heart rate 83 /min Bed Green Work Phone: [facility] 02-09-2023 08:26-0400 Respiratory rate 18 /min Bed Green Work Phone: [facility] 02-09-2023 08:26-0400 Systolic blood pressure 127 mm[Hg] Bed Green Work Phone: [facility] 02-04-2023 11:23-0400 Body temperature 97 [degF] Randa Sindel DO Work Phone: [facility] 02-04-2023 11:23-0400 Body weight 78.56 kg Randa Sindel DO Work Phone: [facility] 02-04-2023 11:23-0400 Diastolic blood pressure 57 mm[Hg] Randa Sindel DO Work Phone: [facility] 02-04-2023 11:23-0400 Heart rate 80 /min Randa Sindel DO Work Phone: [facility] 02-04-2023 11:23-0400 SaO2% (BldA) [Mass fraction] 98 % Randa Sindel DO Work Phone: [facility] 02-04-2023 11:23-0400 Systolic blood pressure 131 mm[Hg] Randa Sindel DO Work Phone: [facility] 01-19-2023 08:32-0400 Body temperature 98.6 [degF] Chair Green Work Phone: [facility] 01-19-2023 08:32-0400 Body weight 80.02 kg Chair Green Work Phone: [facility] 01-19-2023 08:32-0400 Diastolic blood pressure 73 mm[Hg] Chair Green Work Phone: [facility] 01-19-2023 08:32-0400 Heart rate 80 /min Chair Green Work Phone: [facility] 01-19-2023 08:32-0400 Respiratory rate 18 /min Chair Green Work Phone: [facility] 01-19-2023 08:32-0400 Systolic blood pressure 124 mm[Hg] Chair Green Work Phone: [facility] 01-16-2023 08:30-0500 Body temperature 97.9 [degF] Chair Green Work Phone: [facility] 01-16-2023 08:30-0500 Diastolic blood pressure 47 mm[Hg] Chair Green Work Phone: [facility] 01-16-2023 08:30-0500 Heart rate 80 /min Chair Green Work Phone: [facility] 01-16-2023 08:30-0500 Respiratory rate 16 /min Chair Green Work Phone: [facility] 01-16-2023 08:30-0500 Systolic blood pressure 120 mm[Hg] Chair Green Work Phone: [facility] 01-15-2023 08:33-0500 Body temperature 98.1 [degF] Chair Green Work Phone: [facility] 01-15-2023 08:33-0500 Diastolic blood pressure 44 mm[Hg] Chair Green Work Phone: [facility] 01-15-2023 08:33-0500 Heart rate 96 /min Chair Green Work Phone: [facility] 01-15-2023 08:33-0500 Respiratory rate 16 /min Chair Green Work Phone: [facility] 01-15-2023 08:33-0500 Systolic blood pressure 105 mm[Hg] Chair Green Work Phone: [facility] 01-14-2023 08:34-0500 Body temperature 98.2 [degF] Chair Green Work Phone: [facility] 01-14-2023 08:34-0500 Body weight 81.2 kg Chair Green Work Phone: [facility] 01-14-2023 08:34-0500 Diastolic blood pressure 58 mm[Hg] Chair Green Work Phone: [facility] 01-14-2023 08:34-0500 Heart rate 85 /min Chair Green Work Phone: [facility] 01-14-2023 08:34-0500 Respiratory rate 20 /min Chair Green Work Phone: [facility] 01-14-2023 08:34-0500 Systolic blood pressure 99 mm[Hg] Chair Green Work Phone: [facility] 01-13-2023 11:05-0500 Body height 167.6 cm Iram Johnson PRODUCT DEVELOPMENT MANAGER.TELEPHONE ORDER SUPERVISOR Work Phone: [facility] 01-13-2023 11:05-0500 Body weight 81.19 kg Irma Johnson PRODUCT DEVELOPMENT MANAGER.TELEPHONE ORDER SUPERVISOR Work Phone: [facility] 01-13-2023 11:05-0500 Diastolic blood pressure 72 mm[Hg] Iram Johnson PRODUCT DEVELOPMENT MANAGER.TELEPHONE ORDER SUPERVISOR Work Phone: [facility] 01-13-2023 11:05-0500 Heart rate 64 /min Iram Johnson PRODUCT DEVELOPMENT MANAGER.TELEPHONE ORDER SUPERVISOR Work Phone: [facility] 01-13-2023 11:05-0500 Systolic blood pressure 110 mm[Hg] Iram Johnson PRODUCT DEVELOPMENT MANAGER.TELEPHONE ORDER SUPERVISOR Work Phone: [facility] 01-13-2023 08:37-0500 Body temperature 97.9 [degF] Chair Green Work Phone: [facility] 01-13-2023 08:37-0500 Diastolic blood pressure 72 mm[Hg] Chair Green Work Phone: [facility] 01-13-2023 08:37-0500 Heart rate 99 /min Chair Green Work Phone: [facility] 01-13-2023 08:37-0500 Respiratory rate 20 /min Chair Green Work Phone: [facility] 01-13-2023 08:37-0500 Systolic blood pressure 120 mm[Hg] Chair Green Work Phone: [facility] 01-13-2023 08:33-0500 Body weight 81.33 kg Chair Green Work Phone: [facility] 01-12-2023 08:34-0500 Body temperature 98.1 [degF] Bed Green Work Phone: [facility] 01-12-2023 08:34-0500 Body weight 81.28 kg Bed Green Work Phone: [facility] 01-12-2023 08:34-0500 Diastolic blood pressure 69 mm[Hg] Bed Green Work Phone: [facility] 01-12-2023 08:34-0500 Heart rate 89 /min Bed Green Work Phone: [facility] 01-12-2023 08:34-0500 Respiratory rate 16 /min Bed Green Work Phone: [facility] 01-12-2023 08:34-0500 Systolic blood pressure 123 mm[Hg] Bed Green Work Phone: [facility] 12-22-2022 15:00-0500 Body temperature 97.5 [degF] Chair Green Work Phone: [facility] 12-22-2022 15:00-0500 Body weight 77.47 kg Chair Green Work Phone: [facility] 12-22-2022 15:00-0500 Diastolic blood pressure 50 mm[Hg] Chair Green Work Phone: [facility] 12-22-2022 15:00-0500 Heart rate 85 /min Chair Green Work Phone: [facility] 12-22-2022 15:00-0500 Systolic blood pressure 103 mm[Hg] Chair Green Work Phone: [facility] 2022 15:22-0500 Body temperature 97.7 [degF] Chair Green Work Phone: [facility] 2022 15:22-0500 Diastolic blood pressure 65 mm[Hg] Chair Green Work Phone: [facility] 2022 15:22-0500 Heart rate 80 /min Chair Green Work Phone: [facility] 2022 15:22-0500 Respiratory rate 16 /min Chair Green Work Phone: [facility] 2022 15:22-0500 Systolic blood pressure 117 mm[Hg] Chair Green Work Phone: [facility] 12-15-2022 08:31-0500 Body temperature 97.7 [degF] Bed Green Work Phone: [facility] 12-15-2022 08:31-0500 Body weight 80.29 kg Bed Green Work Phone: [facility] 12-15-2022 08:31-0500 Diastolic blood pressure 66 mm[Hg] Bed Green Work Phone: [facility] 12-15-2022 08:31-0500 Heart rate 84 /min Bed Green Work Phone: [facility] 12-15-2022 08:31-0500 Respiratory rate 16 /min Bed Green Work Phone: [facility] 12-15-2022 08:31-0500 Systolic blood pressure 111 mm[Hg] Bed Green Work Phone: [facility] 12-11-2022 16:26-0500 Body height 170.2 cm Israel Tirmonia DO Work Phone: [facility] 12-11-2022 16:26-0500 Body temperature 97.9 [degF] Israel Tirmonia DO Work Phone: [facility] 12-11-2022 16:26-0500 Body weight 77.84 kg Israel Tirmonia DO Work Phone: [facility] 12-11-2022 16:26-0500 Diastolic blood pressure 70 mm[Hg] Israel Tirmonia DO Work Phone: [facility] 12-11-2022 16:26-0500 Heart rate 66 /min Israel Tirmonia DO Work Phone: [facility] 12-11-2022 16:26-0500 Respiratory rate 16 /min Israel Tirmonia DO Work Phone: [facility] 12-11-2022 16:26-0500 SaO2% (BldA) [Mass fraction] 98 % Israel Tirmonia DO Work Phone: [facility] 12-11-2022 16:26-0500 Systolic blood pressure 110 mm[Hg] Israel Tirmonia DO Work Phone: [facility] 12-05-2022 11:00-0500 Diastolic blood pressure 71 mm[Hg] Manjeet Butler MD Work Phone: [facility] 12-05-2022 11:00-0500 Heart rate 90 /min Manjeet Butler MD Work Phone: [facility] 12-05-2022 11:00-0500 Respiratory rate 15 /min Manjeet Butler MD Work Phone: [facility] 12-05-2022 11:00-0500 SaO2% (BldA) [Mass fraction] 96 % Manjeet Butler MD Work Phone: [facility] 12-05-2022 11:00-0500 Systolic blood pressure 118 mm[Hg] Manjeet Butler MD Work Phone: [facility] 12-04-2022 09:08-0500 Body height 170.2 cm Skye Mas PRODUCT DEVELOPMENT MANAGER.TELEPHONE ORDER SUPERVISOR Work Phone: [facility] 12-04-2022 09:08-0500 Body weight 77.11 kg Skye Mas PRODUCT DEVELOPMENT MANAGER.TELEPHONE ORDER SUPERVISOR Work Phone: [facility] 12-04-2022 09:08-0500 Diastolic blood pressure 72 mm[Hg] Skye Mas PRODUCT DEVELOPMENT MANAGER.TELEPHONE ORDER SUPERVISOR Work Phone: [facility] 12-04-2022 09:08-0500 Heart rate 82 /min Skye Mas PRODUCT DEVELOPMENT MANAGER.TELEPHONE ORDER SUPERVISOR Work Phone: [facility] 12-04-2022 09:08-0500 SaO2% (BldA) [Mass fraction] 96 % Skye Mas PRODUCT DEVELOPMENT MANAGER.TELEPHONE ORDER SUPERVISOR Work Phone: [facility] 12-04-2022 09:08-0500 Systolic blood pressure 116 mm[Hg] Skye Mas PRODUCT DEVELOPMENT MANAGER.TELEPHONE ORDER SUPERVISOR Work Phone: [facility] 11-26-2022 11:09-0500 Body temperature 97.3 [degF] Randa Sindel DO Work Phone: [facility] 11-26-2022 11:09-0500 Body weight 76.02 kg Randa Sindel DO Work Phone: [facility] 11-26-2022 11:09-0500 Diastolic blood pressure 57 mm[Hg] Randa Sindel DO Work Phone: [facility] 11-26-2022 11:09-0500 Heart rate 84 /min Randa Sindel DO Work Phone: [facility] 11-26-2022 11:09-0500 SaO2% (BldA) [Mass fraction] 96 % Randa Sindel DO Work Phone: [facility] 11-26-2022 11:09-0500 Systolic blood pressure 104 mm[Hg] Randa Sindel DO Work Phone: [facility] 11-05-2022 11:10-0500 Body height 170.2 cm Randa Sindel DO Work Phone: [facility] 11-05-2022 11:10-0500 Body temperature 97.3 [degF] Randa Sindel DO Work Phone: [facility] 11-05-2022 11:10-0500 Body weight 80.02 kg Randa Sindel DO Work Phone: [facility] 11-05-2022 11:10-0500 Diastolic blood pressure 53 mm[Hg] Randa Sindel DO Work Phone: [facility] 11-05-2022 11:10-0500 Heart rate 89 /min Randa Sindel DO Work Phone: [facility] 11-05-2022 11:10-0500 SaO2% (BldA) [Mass fraction] 92 % Randa Sindel DO Work Phone: [facility] 11-05-2022 11:10-0500 Systolic blood pressure 106 mm[Hg] Randa Sindel DO Work Phone: [facility] 10-24-2022 13:00-0500 Diastolic blood pressure 59 mm[Hg] Jesus Manuel White MD, MD Work Phone: [facility] 10-24-2022 13:00-0500 SaO2% (BldA) [Mass fraction] 100 % Jesus Manuel White MD, MD Work Phone: [facility] 10-24-2022 13:00-0500 Systolic blood pressure 89 mm[Hg] Jesus Manuel White MD, MD Work Phone: [facility] 10-24-2022 12:45-0500 Heart rate 75 /min Jesus Manuel White MD, MD Work Phone: [facility] 10-24-2022 12:40-0500 Respiratory rate 15 /min Jesus Manuel White MD, MD Work Phone: [facility] 10-24-2022 11:11-0500 Body temperature 97.2 [degF] Jesus Manuel White MD, MD Work Phone: [facility] 10-16-2022 14:00-0500 Body height 170.2 cm Tara Ángel PRODUCT DEVELOPMENT MANAGER.TELEPHONE ORDER SUPERVISOR Work Phone: [facility] 10-16-2022 14:00-0500 Body weight 76.57 kg Tara Scarbro PRODUCT DEVELOPMENT MANAGER.TELEPHONE ORDER SUPERVISOR Work Phone: [facility] 10-16-2022 14:00-0500 Diastolic blood pressure 40 mm[Hg] Tara Ángel PRODUCT DEVELOPMENT MANAGER.TELEPHONE ORDER SUPERVISOR Work Phone: [facility] 10-16-2022 14:00-0500 Heart rate 64 /min Tara Ángel PRODUCT DEVELOPMENT MANAGER.TELEPHONE ORDER SUPERVISOR Work Phone: [facility] 10-16-2022 14:00-0500 Respiratory rate 18 /min Tara Ángel PRODUCT DEVELOPMENT MANAGER.TELEPHONE ORDER SUPERVISOR Work Phone: [facility] 10-16-2022 14:00-0500 SaO2% (BldA) [Mass fraction] 100 % Tara Ángel PRODUCT DEVELOPMENT MANAGER.TELEPHONE ORDER SUPERVISOR Work Phone: [facility] 10-16-2022 14:00-0500 Systolic blood pressure 120 mm[Hg] Tara Scarbro PRODUCT DEVELOPMENT MANAGER.TELEPHONE ORDER SUPERVISOR Work Phone: [facility] 10-09-2022 10:43-0500 Body height 170.2 cm Randa Sindel DO Work Phone: [facility] 10-09-2022 10:43-0500 Body temperature 97.2 [degF] Randa Sindel DO Work Phone: [facility] 10-09-2022 10:43-0500 Body weight 75.48 kg Randa Sindel DO Work Phone: [facility] 10-09-2022 10:43-0500 Diastolic blood pressure 60 mm[Hg] Randa Sindel DO Work Phone: [facility] 10-09-2022 10:43-0500 Heart rate 92 /min Randa Sindel DO Work Phone: [facility] 10-09-2022 10:43-0500 SaO2% (BldA) [Mass fraction] 98 % Randa Sindel DO Work Phone: [facility] 10-09-2022 10:43-0500 Systolic blood pressure 110 mm[Hg] Randa Sindel DO Work Phone: [facility] 10-01-2022 11:44-0500 Body height 170.2 cm Device [place] Work Phone: [facility] 10-01-2022 11:44-0500 Body temperature 98.2 [degF] [place] Work Phone: [facility] 10-01-2022 11:44-0500 Body weight 74.84 kg Device [place] Work Phone: [facility] 10-01-2022 11:44-0500 Diastolic blood pressure 60 mm[Hg] [place] Work Phone: [facility] 10-01-2022 11:44-0500 Heart rate 83 /min [place] Work Phone: [facility] 10-01-2022 11:44-0500 Respiratory rate 20 /min [place] Work Phone: [facility] 10-01-2022 11:44-0500 SaO2% (BldA) [Mass fraction] 96 % [place] Work Phone: [facility] 10-01-2022 11:44-0500 Systolic blood pressure 112 mm[Hg] [place] Work Phone: [facility] 09-25-2022 11:18-0500 Body height 171.7 cm Israel Tirmonia DO Work Phone: [facility] 09-25-2022 11:18-0500 Body temperature 97.39 [degF] Israel Tirmonia DO Work Phone: [facility] 09-25-2022 11:18-0500 Body weight 78.2 kg Israel Tirmonia DO Work Phone: [facility] 09-25-2022 11:18-0500 Diastolic blood pressure 60 mm[Hg] Israel Tirmonia DO Work Phone: [facility] 09-25-2022 11:18-0500 Heart rate 73 /min Israel Tirmonia DO Work Phone: [facility] 09-25-2022 11:18-0500 SaO2% (BldA) [Mass fraction] 96 % Israel Tirmonia DO Work Phone: [facility] 09-25-2022 11:18-0500 Systolic blood pressure 114 mm[Hg] Israel Tirmonia DO Work Phone: [facility] 09-11-2022 15:45-0400 Body height 171.7 cm Israel Tirmonia DO Work Phone: [facility] 09-11-2022 15:45-0400 Body temperature 98.29 [degF] Israel Tirmonia DO Work Phone: [facility] 09-11-2022 15:45-0400 Body weight 78.56 kg Israel Tirmonia DO Work Phone: [facility] 09-11-2022 15:45-0400 Diastolic blood pressure 56 mm[Hg] Israel Jovannymonia DO Work Phone: [facility] 09-11-2022 15:45-0400 Heart rate 49 /min Israel Tirmonia DO Work Phone: [facility] 09-11-2022 15:45-0400 SaO2% (BldA) [Mass fraction] 97 % Israel Tirmonia DO Work Phone: [facility] 09-11-2022 15:45-0400 Systolic blood pressure 102 mm[Hg] Israel Tirmonia DO Work Phone: [facility] 07-24-2022 10:44-0400 Body height 171.7 cm Israel Pettymonia DO Work Phone: [facility] 07-24-2022 10:44-0400 Body temperature 97.5 [degF] Israel Pettymonia DO Work Phone: [facility] 07-24-2022 10:44-0400 Body weight 80.38 kg Israel Pettymonia DO Work Phone: [facility] 07-24-2022 10:44-0400 Diastolic blood pressure 60 mm[Hg] Israel Pettymonia DO Work Phone: [facility] 07-24-2022 10:44-0400 Heart rate 67 /min Israel Pettymonia DO Work Phone: [facility] 07-24-2022 10:44-0400 SaO2% (BldA) [Mass fraction] 97 % Israel Pettymonia DO Work Phone: [facility] 07-24-2022 10:44-0400 Systolic blood pressure 110 mm[Hg] Israel Pettymonia DO Work Phone: [facility] 07-17-2022 11:05-0400 Body height 172.7 cm Rosa Gonzalez PA-C Work Phone: [facility] 07-17-2022 11:05-0400 Body weight 82.01 kg Rosa Gonzalez PA-C Work Phone: [facility] 07-17-2022 11:05-0400 Diastolic blood pressure 43 mm[Hg] Rosa Gonzalez PA-C Work Phone: [facility] 07-17-2022 11:05-0400 Heart rate 68 /min Rosa Gonzalez PA-C Work Phone: [facility] 07-17-2022 11:05-0400 Respiratory rate 18 /min Rosa Gonzalez PA-C Work Phone: [facility] 07-17-2022 11:05-0400 SaO2% (BldA) [Mass fraction] 98 % Rosa Gonzalez PA-C Work Phone: [facility] 07-17-2022 11:05-0400 Systolic blood pressure 118 mm[Hg] Rosa Gonzalez PA-C Work Phone: [facility] 06-10-2022 11:23-0400 Body height 172.7 cm Iram Johnson PRODUCT DEVELOPMENT MANAGER.TELEPHONE ORDER SUPERVISOR Work Phone: [facility] 06-10-2022 11:23-0400 Body weight 93.89 kg Iram Johnson PRODUCT DEVELOPMENT MANAGER.TELEPHONE ORDER SUPERVISOR Work Phone: [facility] 06-10-2022 11:23-0400 Diastolic blood pressure 78 mm[Hg] Iram Johnson PRODUCT DEVELOPMENT MANAGER.TELEPHONE ORDER SUPERVISOR Work Phone: [facility] 06-10-2022 11:23-0400 Heart rate 65 /min Iram Johnson PRODUCT DEVELOPMENT MANAGER.TELEPHONE ORDER SUPERVISOR Work Phone: [facility] 06-10-2022 11:23-0400 Systolic blood pressure 128 mm[Hg] Iram Johnson PRODUCT DEVELOPMENT MANAGER.TELEPHONE ORDER SUPERVISOR Work Phone: [facility] 05-29-2022 14:56-0400 Body height 172.7 cm Israel Tirmonia DO Work Phone: [facility] 05-29-2022 14:56-0400 Body temperature 97.5 [degF] Israel Tirmonia DO Work Phone: [facility] 05-29-2022 14:56-0400 Body weight 93.89 kg Israel Tirmonia DO Work Phone: [facility] 05-29-2022 14:56-0400 Diastolic blood pressure 64 mm[Hg] Israel Tirmonia DO Work Phone: [facility] 05-29-2022 14:56-0400 Heart rate 70 /min Israel Tirmonia DO Work Phone: [facility] 05-29-2022 14:56-0400 SaO2% (BldA) [Mass fraction] 99 % Israel Tirmonia DO Work Phone: [facility] 05-29-2022 14:56-0400 Systolic blood pressure 110 mm[Hg] Israel Pruitt DO Work Phone: [facility] 05-08-2022 13:08-0400 Body weight 90.17 kg Laron Fortune PA-C Work Phone: [facility] 05-08-2022 13:08-0400 Diastolic blood pressure 53 mm[Hg] Laron Fortune PA-C Work Phone: [facility] 05-08-2022 13:08-0400 Heart rate 64 /min Laron Fortune PA-C Work Phone: [facility] 05-08-2022 13:08-0400 SaO2% (BldA) [Mass fraction] 97 % Laron Fortune PA-C Work Phone: [facility] 05-08-2022 13:08-0400 Systolic blood pressure 137 mm[Hg] Laron Fortune PA-C Work Phone: [facility] 03-21-2022 13:15-0400 Body height 167.6 cm Guillermina Sylviawood PRODUCT DEVELOPMENT MANAGER.TELEPHONE ORDER SUPERVISOR Work Phone: [facility] 03-21-2022 13:15-0400 Body weight 91.44 kg Guillermina Sylviawood PRODUCT DEVELOPMENT MANAGER.TELEPHONE ORDER SUPERVISOR Work Phone: [facility] 03-21-2022 13:15-0400 Diastolic blood pressure 52 mm[Hg] Guillermina Sylviawood PRODUCT DEVELOPMENT MANAGER.TELEPHONE ORDER SUPERVISOR Work Phone: [facility] 03-21-2022 13:15-0400 Heart rate 70 /min Guillermina Sylviawood PRODUCT DEVELOPMENT MANAGER.TELEPHONE ORDER SUPERVISOR Work Phone: [facility] 03-21-2022 13:15-0400 SaO2% (BldA) [Mass fraction] 97 % Guillermina Sylviawood PRODUCT DEVELOPMENT MANAGER.TELEPHONE ORDER SUPERVISOR Work Phone: [facility] 03-21-2022 13:15-0400 Systolic blood pressure 131 mm[Hg] Guillermina Ellwood PRODUCT DEVELOPMENT MANAGER.TELEPHONE ORDER SUPERVISOR Work Phone: [facility] 03-18-2022 10:16-0400 Body weight 90.27 kg Israel Pruitt DO Work Phone: [facility] 03-18-2022 10:16-0400 Diastolic blood pressure 80 mm[Hg] Israel Pruitt DO Work Phone: [facility] 03-18-2022 10:16-0400 Systolic blood pressure 168 mm[Hg] Israel Pruitt DO Work Phone: [facility] 02-26-2022 14:51-0400 Body height 170.2 cm Guillerminakarey Cummings PRODUCT DEVELOPMENT MANAGER.TELEPHONE ORDER SUPERVISOR Work Phone: [facility] 02-26-2022 14:51-0400 Body weight 88.45 kg Guillerminakarey Cummings PRODUCT DEVELOPMENT MANAGER.TELEPHONE ORDER SUPERVISOR Work Phone: [facility] 02-26-2022 14:51-0400 Diastolic blood pressure 60 mm[Hg] Guillerminakarey Cummings PRODUCT DEVELOPMENT MANAGER.TELEPHONE ORDER SUPERVISOR Work Phone: [facility] 02-26-2022 14:51-0400 Heart rate 65 /min Guillerminakarey Cummings PRODUCT DEVELOPMENT MANAGER.TELEPHONE ORDER SUPERVISOR Work Phone: [facility] 02-26-2022 14:51-0400 SaO2% (BldA) [Mass fraction] 94 % Guillerminakarey Cummings PRODUCT DEVELOPMENT MANAGER.TELEPHONE ORDER SUPERVISOR Work Phone: [facility] 02-26-2022 14:51-0400 Systolic blood pressure 120 mm[Hg] Guillerminakarey Cummings PRODUCT DEVELOPMENT MANAGER.TELEPHONE ORDER SUPERVISOR Work Phone: [facility] NEGATED: Highlighted [id number] 10:40-0500 BMI (Body Mass Index) 36.74 kg/m2 Navin Codey VISUAL MERCHANDISER [facility] Work Phone: NEGATED: Highlighted [id number] 10:40-0500 Body weight 99.79 kg Navin Codey VISUAL MERCH[employer] [facility] Work Phone: NEGATED: Highlighted [id number] 10:40-0500 Body weight 100 kg Navin Codey VISUAL MER[employer] [facility] Work Phone: NEGATED: Highlighted [id number] 10:40-0500 BP Diastolic 0 mm[Hg] Navin Codey VISUAL MERCH[employer] [facility] Work Phone: NEGATED: Highlighted [id number] 10:40-0500 BP Systolic 0 mm[Hg] Navin Codey VISUAL [employer] [facility] Work Phone: NEGATED: Highlighted [id number] 10:40-0500 Heart rate 2+ Navin Codey VISUAL MER[employer] [facility] Work Phone: NEGATED: Highlighted [id number] 10:40-0500 Heart rate Navin Codey VISUAL MERCH[employer] [facility] Work Phone: NEGATED: Highlighted [id number] 10:40-0500 Height 165.1 cm Navin Codey VISUAL MER[employer] [facility] Work Phone: NEGATED: Highlighted [id number] 10:40-0500 Height 165 cm Navin Codey VISUAL MER[employer] [facility] Work Phone: Encounters Encounter Date Encounter Type Care Provider Facility Start: 07-26-2025 ambulatory Star CASSIDY Facility:[facility] Start: 07-14-2025 End: 07-14-2025 ambulatory Codie Summers RN Work Phone: Senior [employer] Start: 07-14-2025 End: 07-14-2025 Evaluation and management of inpatient Codie Summers RN Work Phone: Senior Enterprise Architect Management Comment on above: Transition Of Care ( Inpatient reach in) Start: 07-13-2025 End: 07-25-2025 Evaluation and management of inpatient RONALDO Ambriz PRICILLA Facility:[id number] Start: 07-13-2025 End: 07-13-2025 Follow-up encounter Iram Johnson APRN.TELEPHONE ORDER SUPERVISOR Work Phone: [facility] Start: 07-07-2025 End: 07-07-2025 ambulatory Injection Shaun [facility] Work Phone: Hematology/Oncology Comment on above: [...] Start: 07-07-2025 End: 07-07-2025 ambulatory RONALDO PLEITEZ Facility: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 Start: 06-26-2025 Non-patient / Non-visit Dr. Ramesh [facility] Work Phone: Start: 06-25-2025 Non-patient / Non-visit Dr. Ramesh Rebolledo MD -[facility] Work Phone: Start: 06-24-2025 End: 06-24-2025 Follow-up encounter Ronaldo Pleitez MD Work Phone: [facility] [place] Start: 06-24-2025 Non-patient / Non-visit Dr. Ramesh Rebolledo MD -[facility] Work Phone: Start: 06-23-2025 ambulatory Mary Prather Facility:[facility] Start: 06-23-2025 End: 06-26-2025 Evaluation and management of inpatient Dr. Mary Prather MD -[facility] 3 Work Phone: Start: 06-23-2025 Emergency department patient visit Dr. 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 Start: 06-19-2025 End: 06-19-2025 Telephone encounter Iram Johnson APRN.CNP Work Phone: [facility] Comment on above: Patient Update Start: 06-19-2025 Non-patient / Non-visit Dr. Nde sinclair MD -[facility] Start: 06-19-2025 End: 06-19-[address] Ronaldo Pleitez MD Work Phone: -Cardiovascular Services Start: 06-19-2025 End: 06-19-[address] Bryanna Tijerina MD -Cardiovascu lar Services Work Phone: Start: 06-19-2025 End: 06-19-2025 ambulatory Bryanna Tijerina Facility:[facility] Start: 06-18-2025 End: 06-19-2025 Emergency department patient visit Dr. 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 Start: 05-30-2025 End: 05-30-2025 ambulatory ARABELLA MORENO Facility:[facility] Start: 05-30-2025 End: 05-30-2025 Office outpatient visit 15 minutes Arabella Moreno APRN.TELEPHONE ORDER SUPERVISOR Work Phone: [facility] [place] Comment on above: Cellulitis of left u pper arm (Primary Dx); Multiple skin tears; MCFP (current) use of anticoagulants Start: 05-26-2025 End: 05-26-2025 Telephone encounter Arabella Moreno APRN.TELEPHONE ORDER SUPERVISOR Work Phone: [facility] [place] Start: 05-26-2025 End: 05-26-2025 ambulatory Injection Shaun [facility] Work Phone: Hematology/Oncology Comment on above: 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) (Primary Dx); 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); MDS (myelodysplastic syndrome) (HCC) Start: 05-05-2025 End: 05-08-2025 Telephone encounter Ronaldo Pleitez MD Work Phone: [facility] [place] Comment on above: Patient Update Start: 04-28-2025 End: 04-28-2025 ambulatory Injection Shaun [facility] Work Phone: Hematology/Oncology Comment on above: 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) (Primary Dx); 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 Start: 03-28-2025 ambulatory RONALDO PLEITEZ Faci lity:[facility] Start: 03-27-2025 End: 03-27-2025 Office outpatient visit 25 minutes Ronaldo Pleitez MD Work Phone: [facility] [place] Comment on above: Lymphedema of right lower extremity (Primary Dx); Lymphedema of both lower extremities Start: 03-27-2025 End: 03-27-2025 ambulatory RONALDO PLEITEZ Facility: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); MDS (myelodysplastic syndrome) ([facility]) Start: 12-30-2024 End: 12-30-2024 Patient encounter procedure [facility] Device [address] Cardiology Comment on above: Encounter for care o f pacemaker (Primary Dx) Start: 12-30-2024 End: 12-30-2024 ambulatory RONALDO PLEITEZ Facility:[id number] Start: 12-23-2024 End: 12-23-2024 ambulatory Injection Shaun [facility] [employer] Work Phone: Hematology/Oncology Comment on above: 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) (HCC) (Primary Dx); 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); MDS (myelodysplastic syndrome) ([facility]) Refill Request Start: 12-09-2024 End: 12-09-2024 ambulatory Injection Shaun [facility] Work Phone: Hematology/Oncology Comment on above: 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) (HCC) (Primary Dx); 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); MDS (myelodysplastic syndrome) (HCC) Start: 11-24-2024 End: 11-24-2024 ambulatory Injection Shaun [facility] Work Phone: Hematology/Oncology Comment on above: 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) (HCC) (Primary Dx); 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 Start: 10-14-2024 End: 10-14-2024 Telephone encounter Ronaldo Pleitez MD Work Phone: [facility] [place] Comment on above: Dental surgeon efrem bear Start: 10-13-2024 End: 10-13-2024 Telephone encounter Iram Johnson APRN.TELEPHONE ORDER SUPERVISOR Work Phone: [facility] Cardiology Comment on above: Results; Patient Upd ate Start: 10-12-2024 ambulatory Iram Johnson Facility: [facility] Start: 10-11-2024 End: 10-11-2024 Office outpatient visit 25 minutes Baljinder Galloway DO Work Phone: Hematology/Oncology Comment on above: 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); Macrocytic anemia Start: 10-11-2024 End: 10-12-2024 ambulatory BALJINDER Manuel [facility] Start: 10-10-2024 End: 10-10-2024 Telephone encounter Ronaldo Pleitez MD Work Phone: [facility] [place] Comment on above: short term medicatio n request Start: 10-03-2024 End: 10-03-2024 ambulatory Ginna Em RN Work Phone: Senior Enterprise Architect Management Comment on above: CDM (Telephonic outr each/) Start: 09-27-2024 End: 09-30-2024 Telephone encounter Iram Johnson APRN.TELEPHONE ORDER SUPERVISOR Work Phone: [facility] Start: 09-27-2024 End: 09-27-2024 Patient encounter procedure Iram Johnson PRODUCT DEVELOPMENT MANAGER.TELEPHONE ORDER SUPERVISOR Work Phone: [facility] Comment on above: Benign hypertension (Primary Dx); 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; Mixed hyperlipidemia; Pacemaker; CHB (complete heart block) (HCC); Chronic atrial fibrillation (HCC); 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 Start: 09-15-2024 End: 09-15-2024 Telephone encounter [...] 08-30-2024 ambulatory Ginna Em RN Work Phone: [employer] Comment on above: CDM (Telephonic outr each/) Start: 08-24-2024 End: 08-25-2024 Telephone encounter Ronaldo Pleitez MD Work Phone: Internal Medicine [place] Comment on above: Patient Update Start: 08-22-2024 End: 08-22-2024 ambulatory BALJINDER GALLOWAY Facility:[facility] Start: 08-02-2024 End: 08-02-2024 ambulatory Ginna Em RN Work Phone: [employer] Comment on above: CDM (Telephonic outr each/) Start: 07-29-2024 End: 07-29-2024 ambulatory RONALDO PLEITEZ Facility:[facility] Start: 07-29-2024 End: 07-29-2024 Office outpatient [...] Start: 07-21-2024 End: 07-21-2024 ambulatory BALJINDER GALLOWAY Facility:[facility] Start: 07-05-2024 End: 07-05-2024 ambulatory Ginna Em RN Work Phone: [employer] Comment on above: CDM (Telephonic outr each/) Start: 07-04-2024 End: 07-04-2024 ambulatory Ginna Em RN Work Phone: [employer] Comment on above: CDM (Telephonic outr each/) Start: 06-17-2024 End: 06-17-2024 Patient encounter procedure Rem Device [facility] [address] [address] [facility] Comment on above: Encounter for care o f pacemaker (Primary Dx) Start: 06-16-2024 End: 06-16-2024 ambulatory Baljinder Galloway DO Work Phone: Hematology/Oncology Comment on above: 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) Start: 06-16-2024 End: 06-16-2024 Patient encounter procedure Baljinder A Masci DO Work Phone: Hematology/Oncology Start: 06-09-2024 ambulatory Ginna packer RN Work Phone: [employer] Comment on above: CDM (Telephonic outr each/) Start: 06-08-2024 ambulatory Ginna packer RN Work Phone: [employer] Comment on above: CDM (Telephonic outr each/) Start: 05-25-2024 ambulatory Ephraim Kraft [facility] [place] Start: 05-25-2024 Patient encounter procedure Ephraim gordon MA [facility] [place] Comment on above: Population Health Na vigation Outreach (Med Adherence ([place])/) Start: 05-11-2024 ambulatory Ginna packer RN Work Phone: [employer] Comment on above: CDM (Telephonic outr each/) Start: 05-10-2024 ambulatory Ginna packer RN Work Phone: [employer] Comment on above: CDM (Telephonic outr each/) Start: 04-12-2024 ambulatory Ginna packer RN Work Phone: [employer] Comment on above: CDM (Telephonic outr [...] 03-15-2024 ambulatory Ginna packer RN Work Phone: [employer] Comment on above: CDM (Telephonic outr each/) Start: 03-14-2024 ambulatory Ginna packer RN Work Phone: [employer] Comment on above: CDM (Telephonic outr each/) Start: 02-29-2024 End: 02-29-2024 Patient encounter procedure Iram Carlson Mio PÉREZTELEPHONE ORDER SUPERVISOR Work Phone: [facility] Comment on above: Benign hypertension (Primary Dx); 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; Mixed hyperlipidemia; Pacemaker; CHB (complete heart block) (HCC); Chronic atrial fibrillation (HCC); 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 Encounter for care o f pacemaker (Primary Dx) Start: 02-20-2024 Telephone encounter Ronaldo strange MD Work Phone: Internal Medicine [place] Comment on above: Results Start: 02-15-2024 ambulatory Ginna packer RN Work Phone: [employer] Comment on above: CDM (Telephonic outr each/) Start: 01-22-2024 End: 01-22-2024 Subsequent hospital visit by physician Xr [facility] [place] Work Phone: Radiology Comment on above: Chronic heart failur e with preserved ejection fraction (HCC) [I50.32] Start: 01-22-2024 End: 01-22-2024 Patient encounter procedure Ronaldo Pleitez MD Work Phone: Internal Medicine [place] Comment on above: Medicare annual well ness visit, subsequent (Primary Dx); Mixed hyperlipidemia; Lymphedema of both lower extremities; Chronic heart failure with preserved ejection fraction (HCC); Hypothyroidism, unspecified type; Primary hypertension; B12 deficiency; Vitamin D deficiency Start: 01-01-2024 ambulatory Ginna packer RN Work Phone: [employer] Comment on above: CDM (Telephonic outr each/) Start: 12-24-2023 Telephone encounter Ronaldo strange MD Work Phone: [facility] [place] Start: 12-24-2023 End: 12-24-2023 ambulatory Baljinder A Masci DO Work Phone: Hematology/Oncology Comment on above: 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); Macrocytic anemia Start: 12-24-2023 End: 12-24-2023 Patient encounter procedure Baljinder Galloway DO Work Phone: [facility] Start: 12-23-2023 End: 12-23-2023 Patient encounter procedure Ronaldo Pleitez MD Work Phone: Internal Medicine [place] Comment on above: Right elbow pain (Pr imary Dx); Monoarthritis of elbow, 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); MDS (myelodysplastic syndrome) (HCC) Start: 12-23-2023 End: 12-23-2023 Subsequent hospital visit by physician Fer [facility] Work Phone: Radiology Comment on above: Right elbow pain [M2 5.521] Start: 12-21-2023 Telephone encounter Baljinder eric DO Work Phone: Hematology/Oncology Comment on above: Patient Question Start: 12-18-2023 Refill Ronaldo blanton MD Work Phone: Internal Medicine [place] Comment on above: Refill Request Start: 10-07-2023 ambulatory Ginna packer RN Work Phone: [employer] Comment on above: CDM (Telephonic outr each/) Start: 10-02-2023 Refill Israel Pruitt DO Work Phone: Internal Medicine [place] Comment on above: Refill Request Start: 09-30-2023 End: 09-30-2023 ambulatory Baljinder Galloway DO Work Phone: Hematology/Oncology Comment on above: 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); MDS (myelodysplastic syndrome) (HCC) Start: 09-30-2023 End: 09-30-2023 Patient encounter procedure Baljinder Galloway DO Work Phone: [facility] Start: 09-11-2023 Refill Israel Pruitt DO Work Phone: [facility] [place] Comment on above: Refill Request Start: 09-07-2023 ambulatory Ginna packer RN Work Phone: [employer] Comment on above: CDM (Telephonic outr each/) Start: 09-07-2023 Refill Israel Pruitt DO Work Phone: [facility] [place] Comment on above: Refill Request Start: 08-18-2023 Refill Jayashree Farmer PRODUCT DEVELOPMENT MANAGER.TELEPHONE ORDER SUPERVISOR Work Phone: Internal Medicine [place] Comment on above: Refill Request Start: 07-30-2023 Telephone encounter Iram masterson PRODUCT DEVELOPMENT MANAGER.TELEPHONE ORDER SUPERVISOR Work Phone: [facility] Comment on above: Patient Update Start: 07-29-2023 ambulatory Ginna packer RN Work Phone: Senior [employer] Management Comment on above: CDM (Telephonic outr each/) Start: 07-24-2023 End: 07-24-2023 Patient encounter procedure Arabella Batse PRODUCT DEVELOPMENT MANAGER.TELEPHONE ORDER SUPERVISOR Work Phone: [facility] [place] Comment on above: Lymphedema of both l ower extremities (Primary Dx); Chronic heart failure with preserved ejection fraction (HCC); Encounter for immunization Start: 07-23-2023 End: 07-23-2023 Patient encounter procedure Iram Johnson PRODUCT DEVELOPMENT MANAGER.TELEPHONE ORDER SUPERVISOR Work Phone: [facility] Comment on above: Chronic atrial fibri llation (HCC) (Primary Dx); Benign hypertension; 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; Mixed hyperlipidemia; MCFP current use of anticoagulant; Pacemaker; CHB (complete heart block) (HCC); PVC's (premature ventricular contractions) Encounter for care o f pacemaker (Primary Dx) Start: 07-02-2023 ambulatory Ginna packer RN Work Phone: Senior Enterprise Architect Management Comment on above: CDM (Telephonic outr each/) Start: 06-22-2023 End: 06-22-[address] Pedro Diaz Work Phone: [facility] Work Phone: Start: 06-22-2023 End: 06-22-[address] Pedro Diaz Work Phone: [facility] Start: 06-22-[address] 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 Work Phone: Radiology Comment on above: Acute cough [R05.1] Start: 05-26-2023 Telephone encounter Israel Pruitt DO Work Phone: Internal [facility] [place] Comment on above: readmit orders Start: 05-25-2023 Refill Israel Pruitt DO Work Phone: [facility] [place] Start: 05-22-2023 Telephone encounter Shorty Faith MD Work Phone: General Surgery Comment on above: Patient Update (Surg ical site ( port removal )) Start: 05-22-2023 End: 05-22-[address] Pedro Diaz Work Phone: [facility] Work Phone: Start: 05-21-2023 End: 05-21-2023 Patient encounter procedure Israel Pruitt DO Work Phone: [facility] [place] Comment on above: Gram-negative bacter emia (Primary [...] / Non-visit Dr. Ronna Diaz Work Phone: [facility] Work Phone: Start: 05-17-2023 Non-patient / Non-visit Dr. Ronna Diaz Work Phone: [facility] Work Phone: Start: 05-16-2023 Non-patient / Non-visit Dr. Ronna Diaz Work Phone: [facility] Work Phone: Start: 05-15-2023 Non-patient / Non-visit Dr. Ronna Diaz Work Phone: [facility] Start: 05-15-2023 Non-patient / Non-visit Dr. Ronna Diaz Work Phone: [facility] Work Phone: Start: 05-14-2023 End: 05-18-2023 Evaluation and management of inpatient Dr. Ned Dinh Work Phone: [facility] Work Phone: Start: 05-14-2023 Telephone encounter Ileana Sosa RN He matology/Oncology Comment on above: Java Sybase Developer - O ther (Symptoms ) Start: 05-14-2023 Non-patient / Non-visit Dr. Ronna Diaz Work Phone: [facility] Start: 05-13-2023 End: 05-13-[address] [facility] Work Phone: Hematology/Oncology Comment [...] Start: 05-11-2023 End: 05-11-2023 [facility] Work Phone: H[facility]Oncology Comment on above: 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) Start: 05-08-2023 End: 05-08-[address] [facility] [employer] Work Phone: Hematology/Oncology Comment on above: 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) Start: 05-07-2023 End: 05-07-[address] [facility] [employer] Work Phone: Hematology/Oncology Comment on above: 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) Start: 05-07-2023 Telephone encounter David hi APRN.CNP Work Phone: Hematology/Oncology Comment on above: Patient Question; Pa dom Update (Update regarding decision making regarding patient's right-sided peripheral CV catheter with port with recent diagnosis right IJ DVT.) Start: 05-06-2023 End: 05-06-2023 ambulatory Ginna Em RN Work Phone: Senior Enterprise [employer] Management Comment on above: CDM (Telephonic outr each/) Start: 05-06-2023 Telephone encounter Baljinder eric DO Work Phone: Hematology/Oncology Comment on above: Imm/Inj (immunizatio n) Results Start: 05-06-2023 End: 05-06-[address] Pedro Diaz Work Phone: [facility] Start: 05-06-[address] Ned marti Work Phone: [facility] Start: 05-05-2023 Patient encounter status Taylor myers Hamzah Pruitt DO Work Phone: [facility] [place] Start: 05-05-2023 Telephone encounter Israel Pruitt DO Work Phone: [facility] [place] Comment on above: Orders hepatitis B titer re sults/order Results (DVT) Start: 05-05-2023 End: 05-05-2023 ambulatory Treatment Rm 13 [facility] Work Phone: Hematology/Oncology Comment on above: 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); Arm swelling Start: 05-04-2023 End: 05-04-2023 ambulatory Treatment Rm 13 [facility] Work Phone: Hematology/Oncology Comment on above: 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 Pedro Diaz Work Phone: [facility] Start: 05-04-[address] Ned marti Work Phone: [facility] Start: 05-01-2023 End: 05-01-2023 ambulatory David Cervantes PRODUCT DEVELOPMENT MANAGER.TELEPHONE ORDER SUPERVISOR Work Phone: Hematology/Oncology Comment on above: 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) Start: 05-01-2023 End: 05-01-2023 Patient encounter procedure David Cervantes APRN.TELEPHONE ORDER SUPERVISOR Work Phone: [facility] Start: 04-24-2023 Telephone encounter Iram masterson APRN.TELEPHONE ORDER SUPERVISOR Work Phone: [facility] Card[facility] Comment on above: Patient Question; Pa tient Update Start: 04-21-2023 End: 04-21-2023 Subsequent hospital visit by physician Ct [facility] (I-Stat) Work Phone: Cat Scan Comment on above: Unstable gait [R26.8 1] Start: 04-20-2023 End: 04-20-2023 Patient encounter procedure Israel Pruitt DO Work Phone: Internal Medicine [place] Comment on above: Unstable gait (Prima ry [...] Hematology/Oncology Comment on above: Research (Cons[place] [id number]) Start: 04-15-2023 End: 04-15-2023 ambulatory Treatment Rm 13 Shaun [facility] Work Phone: Hematology/Oncology Comment on above: 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) Start: 04-14-2023 End: 04-14-2023 ambulatory Treatment Rm 13 Shaun [facility] Work Phone: Hematology/Oncology Comment on above: 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 Ned Dinh Work Phone: [facility] Work Phone: Start: 04-13-2023 End: 04-13-[address] [facility] Work Phone: Hematology/Oncology Comment on above: 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) Start: 04-10-2023 Telephone encounter Iram masterson APRN.TELEPHONE ORDER SUPERVISOR Work Phone: [facility] Comment on above: Patient Update Start: 04-10-2023 End: 04-10-[address] [facility] Work Phone: Hematology/Oncology Comment on above: 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) Start: 04-09-2023 End: 04-09-[address] [facility] Work Phone: Hematology/Oncology Comment on above: 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) Start: 04-08-2023 Telephone encounter Ileana Sosa RN He matology/Oncology Comment on above: Java Sybase Developer - O ther (New patient ) Start: 04-08-2023 End: 04-08-[address] [facility] Work Phone: Hematology/Oncology Comment on above: 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) Start: 03-25-2023 End: 03-25-2023 Patient encounter procedure Israel Lucioverna Pruitt DO Work Phone: Internal Medicine [place] Comment on above: Traumatic ecchymosis of foot, right, initial encounter (Primary Dx); Bilateral calf pain; Venous stasis of both lower extremities; Diminished pulses in lower extremity Start: 03-23-2023 ambulatory Eveline Bonilla Work Phone: [facility] Start: 03-23-2023 Follow-up encounter Eveline torres RN Work Phone: Senior Enterprise Architect Management Comment on above: community monitoring outreach (Cdm ED follow up) Start: 03-20-2023 End: 03-20-2023 Emergency department patient visit ISRAEL PRUITT Facility:[facility] Start: 03-20-2023 ambulatory Jennifer Wilson APRN.TELEPHONE ORDER SUPERVISOR Work Phone: Virtual Medicine Comment on above: Blue toes (Primary D x) Start: 03-20-2023 Telemedicine consult ation with patient Jennifer Wilson PRODUCT DEVELOPMENT MANAGER.TELEPHONE ORDER SUPERVISOR Work Phone: MAIN VIRTUAL VISIT Start: 03-19-2023 ambulatory Eveline Bonilla Work Phone: Senior Enterprise Architect Management Comment on above: community monitoring outreach (Cdm telephonic outreach) Start: 03-18-2023 Telephone encounter Israel Pruitt DO Work Phone: [facility] Comment on above: Patient Update Start: 03-17-2023 End: 03-17-2023 ambulatory ISRAEL PRUITT Facility:[facility] Start: 03-17-2023 End: 03-17-2023 ambulatory Chair 8 [facility] [employer] Work Phone: Hematology/Oncology Comment on above: 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) Start: 03-16-2023 End: 03-16-2023 ambulatory ISRAEL PRUITT Facility:[facility] Start: 03-16-2023 End: 03-16-2023 ambulatory Chair 2 H[facility] [employer] Work Phone: Hematology/Oncology Comment on above: 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) Start: 03-13-2023 Telephone encounter Baljinder eric DO Work Phone: Hematology/Oncology Comment on above: New Patient Start: 03-13-2023 End: 03-13-2023 ambulatory ISRAEL PRUITT Facility:[facility] Start: 03-13-2023 End: 03-13-2023 ambulatory Chair 8 H[facility] [employer] Phone: Hematology/Oncology Comment on above: 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) Start: 03-12-2023 End: 03-12-2023 Patient encounter procedure Israel Pruitt DO Work Phone: Internal Medicine [place] Comment on above: PAF (paroxysmal atri al fibrillation) (HCC) (Primary Dx); MDS (myelodysplastic syndrome) (HCC); Essential hypertension, benign; Hypothyroidism, unspecified type; Chronic heart failure with preserved ejection fraction (HCC); Constipation due to slow transit; 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HCC); Mixed hyperlipidemia; Vitamin D deficiency Start: 03-12-2023 End: 03-12-2023 ambulatory ISRAEL PRUITT Facility:[facility] Start: 03-12-2023 End: 03-12-2023 ambulatory Chair 7 [facility] [employer] Phone: Hematology/Oncology Comment on above: 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) Start: 03-11-2023 End: 03-11-2023 ambulatory ISRAEL PRUITT Facility:[facility] Start: 03-11-2023 End: 03-11-2023 ambulatory Chair 8 [employer] Phone: Hematology/Oncology Comment on above: 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 [employer] Start: 03-10-2023 End: 03-10-2023 ambulatory ISRAEL PRUITT Facility:[facility] Start: 03-09-2023 End: 03-09-2023 ambulatory ISRAEL PRUITT Facility:[facility] Start: 03-09-2023 End: 03-09-2023 ambulatory Chair 8 [employer] Phone: Hematology/Oncology Comment on above: 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) Start: 02-28-2023 ambulatory Israel Pruitt DO Work Phone: Internal Medicine [place] Comment on above: LOCATION Start: 02-17-2023 End: 02-17-2023 ambulatory ISRAEL PRUITT Facility:[facility] Start: 02-17-2023 End: 02-17-2023 ambulatory Chair 5 [facility] [employer] Phone: Hematology/Oncology Comment on above: 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) Start: 02-16-2023 End: 02-16-2023 ambulatory ISRAEL PRUITT Facility:[facility] Start: 02-16-2023 End: 02-16-2023 ambulatory Chair 5 [facility] [employer] Phone: Hematology/Oncology Comment on above: 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) Start: 02-13-2023 End: 02-13-2023 ambulatory ISRAEL PRUITT Facility:[facility] Start: 02-13-2023 End: 02-13-2023 ambulatory Chair 7 [facility] [employer] Phone: Hematology/Oncology Comment on above: 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) Start: 02-12-2023 End: 02-12-2023 ambulatory ISRAEL PRUITT Facility:[facility] Start: 02-12-2023 End: 02-12-2023 ambulatory Chair 2 [facility] [employer] Phone: Hematology/Oncology Comment on above: 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) Start: 02-11-2023 End: 02-11-2023 ambulatory ISRAEL PRUITT Facility:[facility] Start: 02-11-2023 End: 02-11-2023 ambulatory Chair 4 [facility] [employer] Phone: Hematology/Oncology Comment on above: 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) Start: 02-10-2023 End: 02-10-2023 ambulatory ISRAEL PRUITT Facility:[facility] Start: 02-10-2023 End: 02-10-2023 ambulatory Chair 7 [facility] [employer] Phone: Hematology/Oncology Comment on above: 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) Start: 02-09-2023 End: 02-09-2023 ambulatory ISRAEL PRUITT Facility:[facility] Start: 02-09-2023 End: 02-09-2023 ambulatory Bed 1 [facility] [employer] Phone: Hematology/Oncology Comment on above: 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 [employer] Start: 01-30-2023 ambulatory Eveline Bonilla Work Phone: Senior Enterprise Architect Management Comment on above: community monitoring outreach (Cdm telephonic outreach) Start: 01-20-2023 End: 01-20-2023 ambulatory ISRAEL PRUITT Facility:[facility] Start: 01-19-2023 End: 01-19-2023 ambulatory ISRAEL PRUITT Facility:[facility] Start: 01-19-2023 End: 01-19-2023 ambulatory Chair 2 [employer] Phone: Hematology/Oncology Comment on above: 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) Start: 01-16-2023 End: 01-16-2023 ambulatory ISRAEL PRUITT Facility:[facility] Start: 01-16-2023 End: 01-16-2023 ambulatory Chair 5 [employer] Phone: Hematology/Oncology Comment on above: 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) Start: 01-15-2023 End: 01-15-2023 ambulatory ISRAEL PRUITT Facility:[facility] Start: 01-15-2023 End: 01-15-2023 ambulatory Chair 5 [facility] [employer] Phone: Hematology/Oncology Comment on above: 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 Encounter for care o f pacemaker (Primary Dx) Start: 01-13-2023 End: 01-15-2023 ambulatory ISRAEL PRUITT Facility:[facility] Start: 01-13-2023 End: 01-13-2023 ambulatory Chair 5 [facility] [employer] Phone: Hematology/Oncology Comment on above: 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) Start: 01-12-2023 End: 01-12-2023 ambulatory ISRAEL PRUITT Facility:[facility] Start: 01-12-2023 End: 01-12-2023 ambulatory Bed 1 [facility] [employer] Phone: Hematology/Oncology Comment on above: 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) Start: 01-08-2023 ambulatory Eveline Pablo Chad Work Phone: Senior Enterprise Architect Management Comment on above: community monitoring outreach (Cdm telephonic outreach) Start: 12-23-2022 End: 12-23-2022 ambulatory ISRAEL PRUITT Facility:[facility] Start: 12-22-2022 End: 12-22-2022 ambulatory Chair 3 [facility] [employer] Phone: Hematology/Oncology Comment on above: 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) Start: 12-19-2022 End: 12-22-2022 ambulatory ISRAEL PRUITT Facility:[facility] Start: 12-18-2022 End: 12-19-2022 ambulatory ISRAEL PRUITT Facility:[facility] Start: 2022 End: 12-18-2022 ambulatory ISRAEL PRUITT Facility:[facility] Start: 2022 End: 2022 ambulatory Chair 8 [facility] [employer] Work Phone: Hematology/Oncology Comment on above: 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) Start: 12-16-2022 End: 2022 ambulatory RANDA ROWELL Facility:[facility] Start: 12-15-2022 Telephone encounter Linda Pollock PG Hematology/Oncology Comment on above: Benefits Investigati on Start: 12-15-2022 End: 12-16-2022 ambulatory RANDALOUIS ROWELL Facility:[facility] Start: 12-15-2022 End: 12-15-2022 ambulatory Bed 2 [facility] [employer] Phone: Hematology/Oncology Comment on above: 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); Other specified counseling Start: 12-04-2022 End: 12-04-2022 Patient encounter procedure Skye Mas APRN.TELEPHONE ORDER SUPERVISOR Work Phone: [facility] Start: 11-26-2022 End: 11-27-2022 ambulatory ISRAEL PRUITT Facility:[facility] Start: 11-26-2022 Telephone encounter Randalouis Avelartrice myers DO Work Phone: [facility] Hematology/Oncology Comment on above: Appointment Start: 11-26-2022 End: 11-26-2022 ambulatory ISRAEL PRUITT Facility:[facility] Start: 11-26-2022 End: 11-26-2022 ambulatory Randa Rowell DO Work Phone: [facility] Hematology/Oncology Comment on above: 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 Comment on above: ak HFC question Start: 11-05-2022 End: 11-06-2022 ambulatory Randa Sindel DO Work Phone: [facility] Hematology/Oncology Comment on above: MDS (myelodysplastic syndrome) (HCC) (Primary Dx); Macrocytic anemia Start: 11-05-2022 End: 11-05-2022 Patient encounter procedure Randalouis Avelardel DO Work Phone: [facility] [employer] Start: 10-24-2022 ambulatory ISRAEL HAMZAHVERNA PRUITT Facility:[facility] Start: 10-24-2022 End: 10-24-2022 Subsequent hospital visit by physician Jesus Manuel White MD Work Phone: [facility] INTERVENTIONAL RADIOLOGY Comment on above: Macrocytic anemia [D 53.9] Start: 10-23-2022 End: 10-23-2022 Refill Israel Pruitt DO Work Phone: [facility] Comment on above: Refill Request Patient Question Impending cerebrovas cular accident (HCC) (Primary Dx); Cerebral artery occlusion with cerebral infarction (HCC); Paresthesia Start: 10-16-2022 End: 10-17-2022 ambulatory ISRAEL PRUITT Facility:[facility] Start: 10-16-2022 End: 10-16-2022 Patient encounter procedure Tara Neal APRN.TELEPHONE ORDER SUPERVISOR Work Phone: [facility] Comment on above: Chronic heart failur e with preserved ejection fraction (HCC) [I50.32 (ICD-10-CM)] (Primary Dx) Start: 10-09-2022 Telephone encounter Randa myers DO Work Phone: [facility] Comment on above: Orders (Bone Marrow Biopsy) Start: 10-09-2022 End: 10-09-2022 ambulatory ISRAEL PRUITT Facility:[facility] Start: 10-09-2022 End: 10-09-2022 ambulatory Randa Sindel DO Work Phone: [facility]ematology/Oncology Comment on above: Macrocytic anemia (P rimary Dx) Start: 10-09-2022 End: 10-09-2022 Patient encounter procedure Randa Rowell DO Work Phone: [facility] Start: 10-06-2022 End: 10-06-2022 ambulatory Rosa Abrams OT/[facility] [place] Comment on above: Impending cerebrovas cular accident (HCC) (Primary Dx); Cerebral artery occlusion with cerebral infarction (HCC); Numbness in cervical dermatome distribution; Paresthesia Start: 10-01-2022 End: 10-01-2022 Patient encounter procedure Device Clinic Card Up Alyssa Work Phone: [facility] Cardiology Comment on above: Pacemaker (Primary D x); PAF (paroxysmal atrial fibrillation) (HCC) Start: 09-29-2022 Telephone encounter Israel Pruitt DO Work Phone: [facility] [place] Comment on above: Patient Update Start: 09-25-2022 End: 09-25-2022 Patient encounter procedure Israel Pruitt DO Work Phone: [facility] Comment on above: Complete heart block (HCC) (Primary Dx); Paroxysmal atrial fibrillation (HCC); Hx of four vessel coronary artery bypass graft; Essential hypertension, benign; Anemia, unspecified type; Numbness and tingling of left arm and leg; Iron deficiency; Constipation due to slow transit; Ankle edema, bilateral Start: 09-23-2022 Telephone encounter Israel Pruitt DO Work Phone: [facility] [place] Comment on above: Patient Question; Ap pointment Start: 09-19-2022 ambulatory Lena Cruz RN [facility] Start: 09-19-2022 Telephone encounter Minerva Herbert RN [facility] Comment on above: Appointment Transition Of Care Transition Of Care ( TCM Pharmacy-Hospital discharge 09/18/22/) Start: 09-17-2022 Telephone encounter Israel Pruitt DO Work Phone: [facility] [place] Comment on above: Patient Update; Orde rs Start: 09-16-2022 Telephone encounter Israel Pruitt DO Work Phone: [facility] [place] Comment on above: Patient Update Start: 09-11-2022 End: 09-11-2022 Patient encounter procedure Israel Pruitt DO Work Phone: [facility] [place] Comment on above: 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HCC) [...] following cerebrovascular accident Start: 09-11-2022 Telephone encounter Isarel Pruitt DO Work Phone: [facility] [place] Comment on above: Occupation Therapy P ree of care Start: 09-10-2022 ambulatory Israel Pruitt DO Work Phone: [facility] [place] Comment on above: Stomach Start: 09-08-2022 Patient Outreach Lena Cruz RN [facility] [place] Comment on above: Transition Of Care Start: 09-05-2022 Telephone encounter Israel Pruitt DO Work Phone: [facility] [place] Comment on above: Patient Update Start: 09-03-2022 Telephone encounter Israel Pruitt DO Work Phone: [facility] [place] Comment on above: Patient Question Start: 08-22-2022 Anticoagulant drug monitoring Vaishali Ng MD, PhD Work Phone: Neurosurgery Comment on above: Cerebrovascular acci dent (CVA), unspecified mechanism (HCC) (Primary Dx); Primary hypertension; Atrial fibrillation, unspecified type (HCC); 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 Start: 08-22-2022 Telemedicine consult ation with patient Vaishali Ng MD, PhD Work Phone: [facility] Start: 08-14-2022 Refill Israel Pruitt DO Work Phone: [facility] [place] Comment on above: Refill Request Start: 08-07-2022 Patient Outreach Tere herman RN Work Phone: Senior Enterprise Architect Management Comment on above: Transition Of Care ( TCM F/U) Start: 08-05-2022 Refill Israel Pruitt DO Work Phone: [facility] [place] Start: 07-29-2022 End: 07-29-2022 ambulatory BALJINDER TREVIZO Facility:[facility] Start: 07-25-2022 Patient Outreach Tere herman RN Work Phone: Senior Enterprise Architect Management Comment on above: Transition Of Care ( TCM F/U) Start: 07-24-2022 End: 07-24-2022 Patient encounter procedure Israel Pruitt DO Work Phone: [facility] [place] Comment on above: Spinal stenosis of l [...] Start: 07-24-2022 End: 07-25-2022 ambulatory ISRAEL PRUITT Facility:[facility] Start: 07-22-2022 Telephone encounter Baljinder bonilla MD Work Phone: Pain Management Comment on above: Consult Start: 07-17-2022 End: 07-18-2022 ambulatory ISRAEL PRUITT Facility:[facility] Start: 07-17-2022 End: 07-17-2022 Patient encounter procedure Rosa Gonzalez PA-C Work Phone: [facility]URE [facility] Comment on above: Chronic [...] Evaluation and management of inpatient ISRAEL PRUITT Facility:[facility] Start: 07-04-2022 End: 07-04-2022 Emergency department patient visit ISRAEL PRUITT Facility:[facility] Start: 07-04-2022 ambulatory Israel Pruitt DO Work Phone: [facility] [place] Comment on above: Reporting Start: 07-03-2022 Orders Only Baljinder Trevizo MD Work Phone: Pain Management Comment on above: 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 (Primary Dx); Arthropathy of lumbar facet joint Start: 06-13-2022 Telephone encounter Baljinder bonilla MD Work Phone: Pain Management Comment on above: Consult (Injection); Schedule Injection; Cardiac Clearance Start: 06-10-2022 End: 06-10-2022 Patient encounter procedure Iram Johnson PRODUCT DEVELOPMENT MANAGER.TELEPHONE ORDER SUPERVISOR Work Phone: [facility] Cardiology Comment on above: Benign hypertension (Primary Dx); 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; Mixed hyperlipidemia; PAF (paroxysmal atrial fibrillation) (HCC); MCFP current use of anticoagulants with INR goal of 2.0-3.0; RBBB; PVC's (premature ventricular contractions) Start: 06-04-2022 End: 06-04-2022 Subsequent hospital visit by physician Xr [facility] 3 [facility] Comment on above: Vivienne ricardo juanyohana s [M70.50] Start: 06-04-2022 Telephone encounter Israel Pruitt DO Work Phone: [facility] [place] Comment on above: Radiology XR Start: 06-02-2022 Telephone encounter Israel Pruitt DO Work Phone: [facility] [place] Comment on above: Results, Lab Start: 05-30-2022 Telephone encounter Jayashree Negrete [facility] PRODUCT DEVELOPMENT MANAGER.TELEPHONE ORDER SUPERVISOR Work Phone: [facility] [place] Comment on above: Opened In Error Start: 05-29-2022 End: 05-29-2022 Patient encounter procedure Israel Pruitt DO Work Phone: [facility] [place] Comment on above: Pes anserine bursiti s (Primary Dx); Acute pain of right knee; Primary insomnia; Spinal stenosis of lumbar region with neurogenic claudication; Paroxysmal atrial fibrillation (HCC); Essential hypertension, benign Start: 05-28-2022 ambulatory Laron Jorgensen ms, PA-C Work Phone: 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 Start: 04-17-2022 Refill Israel Pruitt DO Work Phone: [facility] [place] Comment on above: Refill Request Start: 04-11-2022 End: 04-11-2022 ambulatory Eyal Rodrigues PT [facility] [place] [facility] Comment on above: 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 (Primary Dx); Chronic bilateral low back pain without sciatica Start: 04-04-2022 End: 04-04-2022 ambulatory Eyal Rodrigues PT [employer] [facility] Comment on above: 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 (Primary Dx); Chronic bilateral low back pain without sciatica Start: 04-02-2022 Telephone encounter Israel Pruitt DO Work Phone: [facility] [place] Comment on above: Results, Lab Start: 03-28-2022 End: 03-28-2022 ambulatory Eyal Rodrigues PT [facility] [employer] [facility] Comment on above: 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 (Primary Dx); Chronic bilateral low back pain without sciatica Start: 03-24-2022 Telephone encounter Guillermina galeas APRN.TELEPHONE ORDER SUPERVISOR Work Phone: [facility] [place] Comment on above: Results Start: 03-21-2022 End: 03-21-2022 Patient encounter procedure Guillermina Cummings PRODUCT DEVELOPMENT MANAGER.TELEPHONE ORDER SUPERVISOR Work Phone: [facility] [place] Comment on above: Leg swelling (Primar y Dx); Primary hypertension Start: 03-21-2022 End: 03-21-2022 ambulatory Sanket Solo PT Work Phone: [employer] PH[facility]ICAL [facility]ER[facility] Comment on above: Chronic bilateral lo w back pain without sciatica (Primary Dx); Spinal stenosis of lumbar region with neurogenic claudication Start: 03-18-2022 End: 03-18-2022 ambulatory Israel Pruitt DO Work Phone: [facility] [place] Comment on above: Anemia, unspecified type (Primary [...] with patient Israel Pruitt DO Work Phone: [facility] Start: 03-12-2022 End: 03-12-2022 Subsequent hospital visit by physician Xr Green [facility] Comment on above: 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 [M48.062] Start: 02-26-2022 End: 02-26-2022 Patient encounter procedure Guillermina Cummings PRODUCT DEVELOPMENT MANAGER.TELEPHONE ORDER SUPERVISOR Work Phone: [facility] [place] Comment on above: Chronic midline low back pain without sciatica (Primary Dx); Spinal stenosis of lumbar region with neurogenic claudication Start: 02-20-2022 Refill Israel Goodson Tirmonia DO Work Phone: [facility] [place] Comment on above: Refill Request Medication Start: 02-17-2022 Refill Israel Gerberia DO Work Phone: [facility] [place] Comment on above: Refill Request Start: 02-09-2022 ambulatory Israel Pettymonia DO Work Phone: [facility] [place] Comment on above: Medication Start: 02-09-2022 E-mail encounter fro m caregiver Iram Johnson PRODUCT DEVELOPMENT MANAGER.TELEPHONE ORDER SUPERVISOR Work Phone: [facility] Start: 02-09-2022 Patient encounter procedure Ginger Johnson PRODUCT DEVELOPMENT MANAGER.TELEPHONE ORDER SUPERVISOR Work Phone: [facility] Comment on above: Appointment Request (HM) Start: 09-28-2020 End: 09-28-2020 Patient encounter procedure Laron Arreola MD Work Phone: [facility] Work Phone: Procedures Date Procedure Procedure [...] ast 12 lds i&r only Iram Johnson PRODUCT DEVELOPMENT MANAGER.TELEPHONE ORDER SUPERVISOR Work Phone: Start: 07-29-2024 Adult depression scr eening assessment Ronaldo Pleitez MD Work Phone: Start: 01-22-2024 Radiologic exam ches t 2 views Ronaldo Pleitez MD Work Phone: Start: 12-23-2023 Radex elbow complete minimum 3 views Ronaldo Pleitez MD Work Phone: Start: 07-24-2023 INFLUENZA VACCINE, P RSV FREE, AGE 65+ YR, HIGH DOSE, QUADRIVALENT (FLUZONE HIGH-DOSE) Arabella Older PRODUCT DEVELOPMENT MANAGER.TELEPHONE ORDER SUPERVISOR Work Phone: Start: 05-29-2023 Radiologic exam ches [...] bypass grafting Hx of CABG Iram Johnson PRODUCT DEVELOPMENT MANAGER.TELEPHONE ORDER SUPERVISOR Work Phone: Start: 09-28-2020 End: 09-28-2020 Blood [...] Author Start: 07-14-2028 Diabetes Screening Diabetes Screenin [facility] Start: 07-13-2028 Diabetes Screening Diabetes Screenin [facility] Start: 07-07-2028 Diabetes Screening Diabetes Screenin [facility] Start: 06-23-2028 Diabetes Screening Diabetes Screenin [facility] Start: 04-14-2028 Diabetes Screening Diabetes [facility]in [facility] Start: 03-31-2028 Diabetes Screening Diabetes Screenin [facility] Start: 01-21-2028 Diabetes Screening Diabetes Screenin [facility] Start: 01-06-2028 Diabetes Screening Diabetes Screenin g [facility] Start: 09-15-2027 Diabetes Screening Diabetes Screenin g [facility] Start: 06-16-2027 Diabetes Screening Diabetes Screenin g [facility] Start: 03-17-2027 Diabetes Screening Diabetes Screenin g [facility] Start: 02-17-2027 Diabetes Screening Diabetes Screenin g [facility] Start: 01-20-2027 Diabetes Screening Diabetes Screenin g [facility] Start: 12-24-2026 Diabetes Screening Diabetes Screenin g [facility] Start: 09-30-2026 Diabetes Screening Diabetes Screenin g [facility] Start: 08-06-2026 Diabetes Screening Diabetes Screenin g [facility] Start: 07-14-2026 Hepatitis B surface antibody level LDL Cholesterol [facility] Start: 06-25-2026 DIABETES SCREEN DIABETES SCREEN [facility] Start: 06-25-2026 Diabetes Screening Diabetes Screenin g [facility] Start: 05-28-2026 DIABETES SCREEN DIABETES SCREEN [facility] Start: 05-14-2026 DIABETES SCREEN DIABETES SCREEN [facility] Start: 05-01-2026 DIABETES SCREEN DIABETES SCREEN [facility] Start: 04-17-2026 End: 04-17-[address] [facility] EPS 220 Comment on above: bio and rc Start: 04-08-2026 DIABETES SCREEN DIABETES SCREEN [facility] Start: 03-27-2026 Covid-19 Vaccine (8 - Pfizer risk ) Covid-19 Vaccine (8 - Pfizer risk ) [facility] Comment on above: Postponed from 02/27 (Declined at this time) Start: 03-20-2026 DIABETES SCREEN DIABETES SCREEN [facility] Start: 03-11-2026 DIABETES SCREEN DIABETES SCREEN [facility] Start: 03-09-2026 DIABETES SCREEN DIABETES SCREEN [facility] Start: 02-09-2026 DIABETES SCREEN DIABETES SCREEN [facility] Start: 02-04-2026 DIABETES SCREEN DIABETES SCREEN [facility] Start: 01-20-2026 Hepatitis B surface antibody level LDL Cholesterol [facility] Start: 01-12-2026 DI[facility]CRE[facility] [facility] Start: 12-15-2025 DIABETES SCREEN DIABETES SCREEN [facility] Start: 10-07-2025 DIABETES SCREEN DIABETES SCREEN [facility] Start: 09-29-2025 End: 09-29-2025 Patient encounter procedure 09/29/2025 1:00 PM EST Office Visit Internal Medicine [place] [address] [place] [address] Ronaldo Pleitez MD [address] [place] [address] 3 month follow-up Internal Medicine [place] Comment on above: 3 month follow-up Start: 09-18-2025 DIABETES SCREEN DIABETES SCREEN [facility] Start: 09-16-2025 DIABETES SCREEN DIABETES SCREEN [facility] Start: 09-15-2025 Hepatitis B surface antibody level LDL Cholesterol [facility] Start: 09-04-2025 DIABETES SCREEN DIABETES SCREEN [facility] Start: 09-01-2025 End: 09-01-2025 ambulatory [facility] Comment on above: (SO)CBC(?TX)* Q2WK ?ARANESP/LAB EA RLY* Q2WK ?ARANESP/LAB EA RLY* 3MO OV DUE SEP Start: 08-28-2025 DIABETES SCREEN DIABETES SCREEN [facility] Start: 08-22-2025 DIABETES SCREEN DIABETES SCREEN [facility] Start: 08-18-2025 End: 08-18-2025 ambulatory [facility] Comment on above: (SO)CBC(?TX)* Q2WK ?ARANESP/LAB EA RLY* Q2WK ?ARANESP/LAB EA RLY*3MO OV DUE NOV Start: 08-04-2025 End: 08-04-2025 ambulatory [facility] Comment on above: (SO)CBC(?TX)* Q2WK ?ARANESP/LAB EA RLY* Start: 08-02-2025 End: 08-02-2025 Patient encounter procedure Internal Medicine [place] Comment on above: follow up 6 months Start: 07-29-2025 Anxiety Screening Anxiety Screening [facility] Start: 07-29-2025 Depression Screening Depression Scre ening [facility] Start: 07-25-2025 Urine microalbumin profile [facility] Start: 07-24-2025 DIABETES SCREEN DIABETES SCREEN [facility] Start: 07-21-2025 End: 07-21-2025 Patient encounter procedure 07/21/2025 1:00 PM EDT Office Visit [place] [address] 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 Cardiology Comment on above: 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) ... Start: 07-21-2025 End: 07-21-2025 ambulatory [facility] Comment on above: (SO)CBC(?TX)* Q2WK ?ARANESP/LAB EA RLY* Start: 07-11-2025 End: 07-11-2025 ambulatory [facility] Comment on above: (SO)CBC(?TX)* Q2WK ?ARANESP/LAB EA RLY* Start: 07-10-2025 Influenza vaccination Influenza Vacc ine (#1) [facility] Start: 07-09-2025 DIABETES SCREEN DIABETES SCREEN [facility] Start: 07-07-2025 End: 07-07-2025 ambulatory Hematology/Oncology Comment on above: 3 MO OV/LAB EARLY* Q2WK ?ARANESP/LAB&OV EARLY* Start: 07-07-2025 End: 07-07-2025 ambulatory 07/07/2025 9:30 AM EDT Results Only [facility] [address] [place] [address] /CBC/CMP/iron studies/erythropoietin/ B12/MMA/serum folate* [facility] Comment on above: /CBC/CMP/iron studie s/erythropoietin/B12/MMA/serum folate* Start: 07-04-2025 DIABETES SCREEN DIABETES SCREEN [facility] Start: 06-26-2025 Patient discharge [facility] Start: 06-25-2025 Oxygen therapy [facility] Start: 06-23-2025 Following clinical pathway protocol [facility] Start: 06-23-2025 Assessment of risk o f venous thromboembolism [facility] Start: 06-23-2025 Elevation of affecte d extremity [facility] Start: 06-23-2025 Incentive spirometry [facility] Start: 06-23-2025 Inhalation therapy procedure [facility] Start: 06-23-2025 Insertion of cathete r into peripheral vein [facility] Start: 06-23-2025 Providing care accor ding to standard [facility] Start: 06-23-2025 Provision of activit y privileges [facility] Start: 06-23-2025 Referral to occupati onal therapist [facility] Start: 06-23-2025 Referral to service [facility] Start: 06-23-2025 [facility] Start: 06-23-2025 Verification routine 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, unspecified acute renal failure type (HCC) Expected: 06/23/2025, Expires: 09/21/2025 [facility] Work Phone: Comment on above: Expected: 06/23/2025 , Expires: 09/21/2025 Start: 06-23-2025 End: 09-21-2025 C reactive protein [Mass/volume] in Serum or Plasma C-REACTIVE PROTEIN Lab Routine Cellulitis of left leg Expected: 06/23/2025, Expires: 09/21/2025 [facility] Comment on above: Expected: 06/23/2025 , Expires: 09/21/2025 Start: 06-23-2025 End: 09-21-2025 Erythrocyte sedimentation rate SEDIMENTATION RATE, WESTERGREN Lab Routine Cellulitis of left leg Expected: 06/23/2025, Expires: 09/21/2025 [facility] Comment on above: Expected: 06/23/2025 , Expires: 09/21/2025 Start: 06-23-2025 End: 06-23-2025 ambulatory [facility] Comment on above: (SO)CBC(?TX)* Q2WK ?ARANESP/LAB EA RLY* Start: 06-23-2025 End: 06-23-2025 Patient encounter procedure 06/23/2025 10:20 AM EDT Office Visit [facility] Medicine [place] [address] [place] [address] Ronaldo Pleitez MD [address] [place] [address] 2 day follow-up - bilateral lower leg edema [facility] [place] Comment on above: 2 day follow-up - bi lateral lower leg edema Start: 06-21-2025 End: 06-21-2025 Patient encounter procedure 06/21/2025 11:00 AM EDT Office Visit Internal Medicine [place] [address] [place] [address] Arabella Moreno, PRODUCT DEVELOPMENT MANAGER.TELEPHONE ORDER SUPERVISOR [address] [place] [address] ER follow up appointment Internal Medicine [place] Comment on above: ER follow up appoint ment Start: 06-19-2025 [facility] Start: 06-19-2025 US.doppler Lower extremity vein [facility] Start: 06-09-2025 End: 06-09-2025 ambulatory [facility] Comment on above: (SO)CBC(?TX)* Q2WK ?ARANESP/LAB EA RLY* Start: 06-05-2025 End: 06-05-2025 Patient encounter procedure 06/05/2025 2:40 PM EDT Office Visit [facility] [place] [address] [facility] [place] [address] Arabella Moreno, PRODUCT DEVELOPMENT MANAGER.TELEPHONE ORDER SUPERVISOR [address] [place] [address] wound recheck [facility] [place] Comment on above: wound recheck Start: 05-29-2025 End: 05-29-2025 Patient encounter procedure 05/29/2025 2:40 PM EDT Office Visit Internal Medicine [place] [address] [place] [address] Arabella Moreno, PRODUCT DEVELOPMENT MANAGER.TELEPHONE ORDER SUPERVISOR [address] [place] [address] follow up skin tears [facility] [place] Comment on above: follow up skin tears Start: 05-26-2025 End: 05-26-2025 ambulatory [facility] Comment on above: (SO)CBC(?TX)* Q2WK ?ARANESP/LAB EA RLY* Start: 05-11-2025 End: 05-11-2025 [facility] Comment on above: (SO)CBC(?TX)* Q2WK ?ARANESP/LAB EA RLY* Start: 04-28-2025 End: 04-28-2025 ambulatory [facility] Comment on above: (SO)CBC(?TX)* Q2WK ?ARANESP/LAB EA RLY* Start: 04-20-2025 End: 07-20-2025 Basic metabolic 2000 panel - Serum or Plasma BASIC METABOLIC PANEL Lab Routine Lymphedema of right lower extremity Expected: 04/20/2025, Expires: 07/20/2025 [facility] Work Phone: Comment on above: Expected: 04/20/2025 , Expires: 07/20/2025 Start: 04-14-2025 End: 04-14-2025 [facility] Comment on above: (SO)CBC(?TX)* Q2WK ?ARANESP/LAB EA RLY/AUTH EXP 05/09/25* Q2WK ?ARANESP/LAB EA RLY* Start: 04-07-2025 End: 04-07-2025 Patient encounter procedure [facility] Cardiology Comment on above: bio and rc Start: 03-31-2025 End: 06-30-2025 Basic metabolic 2000 panel - Serum or Plasma BASIC METABOLIC PANEL Lab Routine Lymphedema of right lower extremity Lymphedema of both lower extremities Expected: 03/31/2025, Expires: 06/30/2025 [facility] Comment on above: Expected: 03/31/2025 , Expires: 06/30/2025 Start: 03-31-2025 End: 06-30-2025 Natriuretic peptide.B prohormone N-Terminal [Mass/volume] in Serum or Plasma NT PRO BNP Lab Routine Lymphedema of right lower extremity Lymphedema of both lower extremities Expected: 03/31/2025, Expires: 06/30/2025 [facility] Comment on above: Expected: 03/31/2025 , Expires: 06/30/2025 Start: 03-31-2025 End: 03-31-2025 ambulatory [facility] Comment on above: (SO)CBC(?TX)* Q2WK ?ARANESP/LAB EA RLY/AUTH EXP 05/09/25* 3 MO OV/LAB&INJ ROSAMARIA Y* Start: 03-28-2025 End: 03-28-2025 Patient encounter procedure 03/28/2025 2:30 PM EDT Appointment Radiology [address] [place] [address] : Lymphedema of right lower extremity [I89.0]; Lymphedema of both lower extremities [I89.0] Radiology Comment on above: : Lymphedema of righ t lower extremity [I89.0]; Lymphedema of both lower extremities [I89.0] Start: 03-17-2025 End: 03-17-2025 [facility] Comment on above: (SO)CBC(?TX)* Q2WK ?ARANESP/LAB EA RLY/AUTH EXP 05/09/25* Start: 03-12-2025 DIABETES SCREEN DIABETES SCREEN [facility] Start: 03-03-2025 End: 03-03-2025 ambulatory [facility] Comment on above: (SO)CBC(?TX)* Q2WK ?ARANESP/LAB EA RLY/AUTH EXP 05/09/25* 3 MO OV DUE END OF MARCH REF TE 01/06 FOR LABS Start: 02-27-2025 Covid-19 Vaccine (8 - Pfizer risk season) Covid-19 Vaccine (8 - Pfizer risk season) [facility] Start: 02-17-2025 End: 02-17-2025 ambulatory [facility] Comment on above: (SO)CBC(?TX)* Q2WK ?ARANESP/LAB EA RLY/AUTH EXP 05/09/25* Q2WK ?ARANESP/LAB EA RLY/AUTH EXP 05/09/25* 3 MO OV DUE END OF MARCH Start: 02-03-2025 End: 02-03-2025 ambulatory [facility] Comment on above: (SO)CBC(?TX)* Q2WK ?ARANESP/LAB EA RLY/AUTH EXP 05/09/25* Start: 01-31-2025 End: 01-31-2025 Patient encounter procedure 01/31/2025 11:00 AM EDT Office Visit Internal Medicine [place] [address] [facility] [address] Arabella Moreno, PRODUCT DEVELOPMENT MANAGER.TELEPHONE ORDER SUPERVISOR [address] [place] [address] Medicare Wellness Internal Medicine [place] Comment on above: Medicare Wellness Start: 01-26-2025 End: 04-27-2025 Comprehensive metabolic 2000 panel - Serum or Plasma COMPREHENSIVE METABOLIC PANEL Lab Routine Mixed hyperlipidemia Expected: 01/26/2025, Expires: 04/27/2025 [facility] Work Phone: Comment on above: Expected: 01/26/2025 , Expires: 04/27/2025 Start: 01-26-2025 End: 04-27-2025 Lipid 1996 panel - Serum or Plasma LIPID PANEL BASIC Lab Routine Mixed hyperlipidemia Expected: 01/26/2025, Expires: 04/27/2025 [facility] Comment on above: Expected: 01/26/2025 , Expires: 04/27/2025 Start: 01-26-2025 End: 04-27-2025 Thyrotropin [Units/volume] in Serum or Plasma THYROID STIMULATING HORMONE Lab Routine Hypothyroidism, unspecified type Expected: 01/26/2025, Expires: 04/27/2025 [facility] Comment on above: Expected: 01/26/2025 , Expires: 04/27/2025 Start: 01-20-2025 End: 01-20-2025 ambulatory [facility] Comment on above: (SO)CBC(?TX)* Q2WK ?ARANESP/LAB EA RLY/AUTH EXP 05/09/25* Start: 01-10-2025 End: 01-10-2025 ambulatory Hematology/Oncology Comment on above: CBC/CMP/IRON/ERTHROP OIETIN/B12/MMA/SERUM FOLATE* 3MO OV/EARLY LABS* Start: 01-06-2025 End: 01-06-2025 ambulatory [place] [facility] Comment on above: QMO (SO) CBC(?TX) Q2WK ?ARANESP/LAB EA RLY/AUTH EXP?* (SO)CBC(?TX)/CMP(S)/ IRON STUDIES/ERYTHROPOIETIN/ Q2WK ?ARANESP/LAB EA RLY/AUTH EXP 05/09/25* 3MO OV/LAB&INJ EARLY * Start: 12-30-2024 End: 12-30-2024 Patient encounter procedure 12/30/2024 2:15 PM EST Office Visit [facility] Cardiology [address] [place] [address] bio [facility] Cardiology Comment on above: bio Start: 12-23-2024 End: 12-23-2024 ambulatory [place] [facility] Comment on above: CBC Q2WK ?ARANESP/LAB EA RLY/AUTH EXP?* (SO)CBC(?TX)* Q2WK ?ARANESP/LAB EA RLY/AUTH EXP 05/09/25* Start: 12-13-2024 End: 12-13-2024 ambulatory 12/13/2024 11:00 AM EST [facility] [address] [place] [address] MONTHLY/(SO)CBC(?TX)* [facility] Comment on above: MONTHLY/(SO)CBC(?TX) * Start: 12-09-2024 End: 12-09-2024 [facility] Comment on above: Q[place] (SO) CBC(?TX) Q2WK ?ARANESP/LAB EA RLY/AUTH EXP?* (SO)CBC(?TX)* Q2WK ?ARANESP/LAB EA RLY/AUTH EXP 05/09/25* Start: 11-24-2024 End: 11-24-2024 ambulatory [place] [facility] Comment on above: CBC START Q2WK ?ARANESP/ LAB EARLY/AUTH EXP?* Start: 11-15-2024 End: 11-15-2024 ambulatory 11/15/2024 11:00 AM EST Results Only [place] [facility] [address] [place] [address] MONTHLY/(SO)CBC(?TX)ERT HROPOIETIN* [place] [facility] Comment on above: MONTHLY/(SO)CBC(?TX) ERTHROPOIETIN* Start: 11-12-2024 DIABETES SCREEN DIABETES SCREEN [facility] Start: 11-09-2024 Advance Directive Discussion Advance Directive Discussion [facility] Start: 10-11-2024 End: 10-11-2024 ambulatory [facility] Comment on above: (SO)CBC* (SO)CBC/1 MO OV* (MA SCI) (SO)CBC(?TX)* (LAB EARLY)1 MO OV* Start: 09-27-2024 End: 10-27-2025 NM Heart Perfusion W stress and W radionuclide IV NM CARDIAC PERF STRESS/PHARM Radiology Routine 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 Encounter for screening for cardiovascular disorders SOB (shortness of breath) Expected: 09/27/2024, Expires: 10/27/2025 [facility] Work Phone: Comment on above: Expected: 09/27/2024 , Expires: 10/27/2025 Start: 09-27-2024 End: 09-27-2024 Patient encounter procedure [facility] Cardiology Comment on above: bio and rc Start: 09-22-2024 End: 09-22-2024 ambulatory 09/22/2024 10:00 AM EST Results Only [place] [facility] [address] [place] [address] CBC(?TX)* [facility] Comment on above: CBC(?TX)* Start: 09-15-2024 End: 12-15-2024 Cobalamin (Vitamin B12) [Mass/volume] in Serum or Plasma VITAMIN B12 Lab Routine History of anemia Expected: 09/15/2024, Expires: 12/15/2024 [facility] Work Phone: Comment on above: Expected: 09/15/2024 , Expires: 12/15/2024 Start: 09-15-2024 End: 09-15-2024 ambulatory [facility] Comment on above: (SO)CBC(?TX)/CMP(S)/ IRON STUDIES* (SO)CBC(?TX)/CMP(S)/ IRON STUDIES/3 MO OV* Start: 08-22-2024 End: 08-22-2024 ambulatory 08/22/2024 11:00 AM EDT Results Only [place] [facility] [address] [place] [address] (SO)CBC(?TX)* [facility] Comment on above: (SO)CBC(?TX)* Start: 08-06-2024 Hepatitis B surface antibody level LDL Cholesterol [facility] Start: 07-29-2024 End: 07-29-2024 Patient encounter procedure 07/29/2024 11:00 AM EDT Office Visit Internal Medicine [place] [address] [facility] [place] [address] Ronaldo Pleitez MD [address] [place] [address] 6 mo f/u Internal Medicine [place] Comment on above: 6 mo f/u Start: 07-24-2024 End: 10-23-2024 Lipid 1996 panel - Serum or Plasma LIPID PANEL BASIC Lab Routine Mixed hyperlipidemia Expected: 07/24/2024, Expires: 10/23/2024 [facility] Work Phone: Comment on above: Expected: 07/24/2024 , Expires: 10/23/2024 Start: 07-21-2024 End: 07-21-2024 ambulatory 07/21/2024 10:00 AM EDT Results Only [place] [facility] [address] [place] [address] (SO)CBC(?TX)* [facility] Comment on above: (SO)CBC(?TX)* Start: 07-10-2024 Covid-19 Vaccine ( season) Covid-19 Vaccine ( season) [facility] Start: 07-10-2024 Covid-19 Vaccine ( season) Covid-19 Vaccine () [facility] Start: 07-10-2024 Influenza vaccination Influenza Vacc ine (#1) [facility] Start: 06-17-2024 End: 06-17-2024 Patient encounter procedure 06/17/2024 1:15 PM EDT Office Visit [facility] Cardiology [address] [place] [address] bio [facility] Cardiology Comment on above: bio Start: 06-16-2024 End: 06-16-2024 ambulatory [place] [facility] Comment on above: (SO)CBC(?TX)/CMP(S)/ IRON STUDIES* (SO)CBC(?TX)/CMP(S)/ IRON STUDIES/3 MO OV* Start: 05-21-2024 End: 08-20-2024 Thyrotropin [Units/volume] in Serum or Plasma THYROID STIMULATING HORMONE Lab Routine Hypothyroidism, unspecified type Expected: 05/21/2024, Expires: 08/20/2024 [facility] Work Phone: Comment on above: Expected: 05/21/2024 , Expires: 08/20/2024 Start: 03-17-2024 End: 06-16-2024 Ferritin [Mass/volume] in Serum or Plasma FERRITIN Lab Routine 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) Macrocytic anemia Expected: 03/17/2024, Expires: 06/16/2024 [facility] Comment on above: Expected: 03/17/2024 , Expires: 06/16/2024 Start: 03-17-2024 End: 06-16-2024 Iron and Iron binding capacity panel - Serum or Plasma IRON AND TIBC Lab Routine 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) Macrocytic anemia Expected: 03/17/2024, Expires: 06/16/2024 [facility] Work Phone: Comment on above: Expected: 03/17/2024 , Expires: 06/16/2024 Start: 03-17-2024 End: 03-17-2024 ambulatory [place] [facility] Laboratory Comment on above: (SO)CBC(?TX)/CMP(S)/ IRON STUDIES* (SO)CBC(?TX)/CMP(S)/ IRON STUDIES/3 MO OV* Start: 03-11-2024 Hepatitis B surface antibody level LDL CHOLESTEROL [facility] Start: 02-18-2024 End: 05-19-2024 25-hydroxyvitamin D3 [Mass/volume] in Serum or Plasma VITAMIN D 25 HYDROXY Lab Routine Vitamin D deficiency Expected: 02/18/2024, Expires: 05/19/2024 [facility] Work Phone: Comment on above: Expected: 02/18/2024 , Expires: 05/19/2024 Start: 02-18-2024 End: 05-19-2024 Cobalamin (Vitamin B12) [Mass/volume] in Serum or Plasma VITAMIN B12 BLOOD Lab Routine B12 deficiency Expected: 02/18/2024, Expires: 05/19/2024 [facility] Work Phone: Comment on above: Expected: 02/18/2024 , Expires: 05/19/2024 Start: 02-18-2024 End: 05-19-2024 Thyrotropin [Units/volume] in Serum or Plasma TSH BLD Lab Routine Hypothyroidism, unspecified type Expected: 02/18/2024, Expires: 05/19/2024 [facility] Work Phone: Comment on above: Expected: 02/18/2024 , Expires: 05/19/2024 Start: 12-24-2023 End: 03-24-2024 Ferritin [Mass/volume] in Serum or Plasma FERRITIN BLD Lab Routine 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) Expected: 12/24/2023, Expires: 03/24/2024 [facility] Work Phone: Comment on above: Expected: 12/24/2023 , Expires: 03/24/2024 Start: 12-24-2023 End: 03-24-2024 Iron and Iron binding capacity panel - Serum or Plasma IRON + TIBC Lab Routine 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) Expected: 12/24/2023, Expires: 03/24/2024 [facility] Work Phone: Comment on above: Expected: 12/24/2023 , Expires: 03/24/2024 Start: 11-09-2023 Advance Directive Discussion Advance Directive Discussion [facility] Start: 11-09-2023 Behavioral Health Screening Behavioral Health Screening [facility] Start: 11-09-2023 Depression Assessment Depression Ass essment [facility] Start: 10-07-2023 Hepatitis B surface antibody level LDL CHOLESTEROL [facility] Start: 09-17-2023 Hepatitis B surface antibody level LDL CHOLESTEROL [facility] Start: 08-23-2023 Hepatitis B surface antibody level LDL CHOLESTEROL [facility] Start: 08-08-2023 End: 10-08-2023 25-hydroxyvitamin D3 [Mass/volume] in Serum or Plasma VITAMIN D 25 HYDROXY Lab Routine Vitamin D deficiency Expected: 08/08/2023 (Approximate), Expires: 10/08/2023 [facility] Work Phone: Comment on above: Expected: 08/08/2023 (Approximate), Expires: 10/08/2023 Start: 08-08-2023 End: 10-08-2023 CBC W Auto Differential panel - Blood CBC + DIFF Lab Routine Hypotension due to drugs MDS (myelodysplastic syndrome) (HCC) Expected: 08/08/2023 (Approximate), Expires: 10/08/2023 [facility] Work Phone: Comment on above: Expected: 08/08/2023 (Approximate), Expires: 10/08/2023 Start: 08-08-2023 End: 10-08-2023 Comprehensive metabolic 2000 panel - Serum or Plasma COMP METABOLIC PANEL Lab Routine Essential hypertension, benign PAF (paroxysmal atrial fibrillation) (HCC) Vitamin D deficiency Expected: 08/08/2023 (Approximate), Expires: 10/08/2023 [facility] Work Phone: Comment on above: Expected: 08/08/2023 (Approximate), Expires: 10/08/2023 Start: 08-08-2023 End: 10-08-2023 Iron and Iron binding capacity panel - Serum or Plasma IRON + TIBC Lab Routine MDS (myelodysplastic syndrome) (HCC) Expected: 08/08/2023 (Approximate), Expires: 10/08/2023 [facility] Work Phone: Comment on above: Expected: 08/08/2023 (Approximate), Expires: 10/08/2023 Start: 08-08-2023 End: 10-08-2023 Thyrotropin [Units/volume] in Serum or Plasma TSH BLD Lab Routine Hypothyroidism, unspecified type Expected: 08/08/2023 (Approximate), Expires: 10/08/2023 [facility] Work Phone: Comment on above: Expected: 08/08/2023 (Approximate), Expires: 10/08/2023 Start: 08-08-2023 End: 10-08-2023 Thyroxine (T4) free [Mass/volume] in Serum or Plasma T4 FREE/FREE THYROX Lab Routine Hypothyroidism, unspecified type Expected: 08/08/2023 (Approximate), Expires: 10/08/2023 [facility] Work Phone: Comment on above: Expected: 08/08/2023 (Approximate), Expires: 10/08/2023 Start: 07-13-2023 End: 09-12-2023 25-hydroxyvitamin D3 [Mass/volume] in Serum or Plasma VITAMIN D 25 HYDROXY Lab Routine Vitamin D deficiency Expected: 07/13/2023, Expires: 09/12/2023 [facility] Work Phone: Comment on above: Expected: 07/13/2023 , Expires: 09/12/2023 Start: 07-13-2023 End: 09-12-2023 CBC W Auto Differential panel - Blood CBC + DIFF Lab Routine MDS (myelodysplastic syndrome) (HCC) Expected: 07/13/2023, Expires: 09/12/2023 [facility] Work Phone: Comment on above: Expected: 07/13/2023 , Expires: 09/12/2023 Start: 07-13-2023 End: 09-12-2023 Comprehensive metabolic 2000 panel - Serum or Plasma COMP METABOLIC PANEL Lab Routine PAF (paroxysmal atrial fibrillation) (HCC) Essential hypertension, benign Chronic heart failure with preserved ejection fraction (HCC) Expected: 07/13/2023, Expires: 09/12/2023 [facility] Work Phone: Comment on above: Expected: 07/13/2023 , Expires: 09/12/2023 Start: 07-13-2023 End: 09-12-2023 Lipid 1996 panel - Serum or Plasma LIPID PANEL BASIC Lab Routine Mixed hyperlipidemia Expected: 07/13/2023, Expires: 09/12/2023 [facility] Work Phone: Comment on above: Expected: 07/13/2023 , Expires: 09/12/2023 Start: 07-13-2023 End: 09-12-2023 Natriuretic peptide.B prohormone N-Terminal [Mass/volume] in Serum or Plasma NT PRO BNP Lab Routine Chronic heart failure with preserved ejection fraction (HCC) Expected: 07/13/2023, Expires: 09/12/2023 [facility] Work Phone: Comment on above: Expected: 07/13/2023 , Expires: 09/12/2023 Start: 07-13-2023 End: 09-12-2023 Thyrotropin [Units/volume] in Serum or Plasma TSH BLD Lab Routine Hypothyroidism, unspecified type Expected: 07/13/2023, Expires: 09/12/2023 [facility] Work Phone: Comment on above: Expected: 07/13/2023 , Expires: 09/12/2023 Start: 07-13-2023 End: 09-12-2023 Thyroxine (T4) free [Mass/volume] in Serum or Plasma T4 FREE/FREE THYROX Lab Routine Hypothyroidism, unspecified type Expected: 07/13/2023, Expires: 09/12/2023 [facility] Work Phone: Comment on above: Expected: 07/13/2023 , Expires: 09/12/2023 Start: 07-10-2023 Covid-19 Vaccine (6 - 2023-24 season) Covid-19 Vaccine () [facility] Start: 07-10-2023 [facility]: 07-06-2023 Hepatitis B surface antibody level LDL CHOLESTEROL [facility] Start: 07-04-2023 End: 09-03-2023 Hepatitis B virus surface Ab [Presence] in Serum HEP B SURF AB Lab Routine Immunity status testing Expected: 07/04/2023, Expires: 09/03/2023 [facility] Work Phone: Comment on above: Expected: 07/04/2023 , Expires: 09/03/2023 Start: 06-04-2023 End: 08-04-2023 Basic metabolic 2000 panel - Serum or Plasma BASIC METABOLIC PNL Lab Routine Acute on chronic diastolic congestive heart failure (HCC) Essential hypertension, benign Expected: 06/04/2023 (Approximate), Expires: 08/04/2023 [facility] Work Phone: Comment on above: Expected: 06/04/2023 (Approximate), Expires: 08/04/2023 Start: 06-02-2023 End: 08-02-2023 Basic metabolic 2000 panel - Serum or Plasma BASIC METABOLIC PNL Lab Routine Chronic heart failure with preserved ejection fraction (HCC) Essential hypertension, benign Expected: 06/02/2023 (Approximate), Expires: 08/02/2023 [facility] Work Phone: Comment on above: Expected: 06/02/2023 (Approximate), Expires: 08/02/2023 Start: 06-02-2023 End: 08-02-2023 Natriuretic peptide.B prohormone N-Terminal [Mass/volume] in Serum or Plasma NT PRO BNP Lab Routine Chronic heart failure with preserved ejection fraction (HCC) Expected: 06/02/2023 (Approximate), Expires: 08/02/2023 [facility] Work Phone: Comment on above: Expected: 06/02/2023 (Approximate), Expires: 08/02/2023 Start: 05-22-2023 Administration of bl ood product [facility] Start: 05-22-2023 [facility] Start: 05-19-2023 [facility] Start: 05-18-2023 [facility] Start: 05-18-2023 Patient discharge [facility] Start: 05-17-2023 Bacteria identified in Blood by Culture Blood Culture [facility] Start: 05-17-2023 Blood culture [facility] Start: 05-17-2023 Consultation [facility] Start: 05-14-2023 Assessment of risk o f venous thromboembolism [facility] Start: 05-14-2023 Cardiac monitoring [facility] Start: 05-14-2023 Care regimes management [facility] Start: 05-14-2023 Catheterization of vein [facility] Start: 05-14-2023 Inhalation therapy procedure [facility] Start: 05-14-2023 Insertion of cathete r into peripheral vein [facility] Start: 05-14-2023 Measuring intake and output [facility] Start: 05-14-2023 Notification of physician [facility] Start: 05-14-2023 Oxygen therapy [facility] Start: 05-14-2023 Providing care accor ding to standard [facility] Start: 05-14-2023 Provision of activit y privileges [facility] Start: 05-14-2023 Referral to occupati onal therapist [facility] Start: 05-14-2023 Referral to service [facility] Start: 05-14-2023 [facility] Start: 05-14-2023 Verification [address] [facility] Start: 05-14-2023 Admission procedure [facility] Start: 05-14-2023 Bacteria identified in Blood by Culture Blood Culture [facility] Start: 05-14-2023 End: 05-14-2023 [facility] Start: 05-14-2023 End: 05-14-2023 Blood culture [facility] Start: 04-20-2023 End: 05-19-[address]24 CT BRAIN WO IVCON CT BRAIN WO IVCON Radiology STAT Unstable gait Postural dizziness Confusion and disorientation Diplopia Expected: 04/20/2023, Expires: 05/19/2024 [facility] Work Phone: Comment on above: Expected: 04/20/2023 , Expires: 05/19/2024 Start: 04-10-2023 End: 06-10-2023 25-hydroxyvitamin D3 [Mass/volume] in Serum or Plasma VITAMIN D 25 HYDROXY Lab Routine Vitamin D deficiency Expected: 04/10/2023 (Approximate), Expires: 06/10/2023 [facility] Work Phone: Comment on above: Expected: 04/10/2023 (Approximate), Expires: 06/10/2023 Start: 04-10-2023 End: 06-10-2023 Comprehensive metabolic 2000 panel - Serum or Plasma COMP METABOLIC PANEL Lab Routine Chronic heart failure with preserved ejection fraction (HCC) PAF (paroxysmal atrial fibrillation) (HCC) Essential hypertension, benign Hx of four vessel coronary artery bypass graft Mixed hyperlipidemia Expected: 04/10/2023 (Approximate), Expires: 06/10/2023 [facility] Work Phone: Comment on above: Expected: 04/10/2023 (Approximate), Expires: 06/10/2023 Start: 04-10-2023 End: 06-10-2023 Iron and Iron binding capacity panel - Serum or Plasma IRON + TIBC Lab Routine Iron deficiency Expected: 04/10/2023 (Approximate), Expires: 06/10/2023 [facility] Work Phone: Comment on above: Expected: 04/10/2023 (Approximate), Expires: 06/10/2023 Start: 04-10-2023 End: 06-10-2023 Lipid 1996 panel - Serum or Plasma LIPID PANEL BASIC Lab Routine Mixed hyperlipidemia Expected: 04/10/2023 (Approximate), Expires: 06/10/2023 [facility] Work Phone: Comment on above: Expected: 04/10/2023 (Approximate), Expires: 06/10/2023 Start: 04-10-2023 End: 06-10-2023 Natriuretic peptide.B prohormone N-Terminal [Mass/volume] in Serum or Plasma NT PRO BNP Lab Routine Chronic heart failure with preserved ejection fraction (HCC) Expected: 04/10/2023 (Approximate), Expires: 06/10/2023 [facility] Work Phone: Comment on above: Expected: 04/10/2023 (Approximate), Expires: 06/10/2023 Start: 04-10-2023 End: 06-10-2023 Thyrotropin [Units/volume] in Serum or Plasma TSH BLD Lab Routine Hypothyroidism, unspecified type Expected: 04/10/2023 (Approximate), Expires: 06/10/2023 [facility] Work Phone: Comment on above: Expected: 04/10/2023 (Approximate), Expires: 06/10/2023 Start: 04-10-2023 End: 06-10-2023 Thyroxine (T4) free [Mass/volume] in Serum or Plasma T4 FREE/FREE THYROX Lab Routine Hypothyroidism, unspecified type Expected: 04/10/2023 (Approximate), Expires: 06/10/2023 [facility] Work Phone: Comment on above: Expected: 04/10/2023 (Approximate), Expires: 06/10/2023 Start: 04-09-2023 End: 06-09-2023 Basic metabolic 2000 panel - Serum or Plasma BASIC METABOLIC PNL Lab Routine Chronic heart failure with preserved ejection fraction (HCC) Expected: 04/09/2023 (Approximate), Expires: 06/09/2023 [facility] Work Phone: Comment on above: Expected: 04/09/2023 (Approximate), Expires: 06/09/2023 Start: 04-09-2023 End: 06-09-2023 Natriuretic peptide.B prohormone N-Terminal [Mass/volume] in Serum or Plasma NT PRO BNP Lab Routine Chronic heart failure with preserved ejection fraction (HCC) Expected: 04/09/2023 (Approximate), Expires: 06/09/2023 [facility] Work Phone: Comment on above: Expected: 04/09/2023 (Approximate), Expires: 06/09/2023 Start: 03-12-2023 Hepatitis B surface antibody level LDL CHOLESTEROL [facility] Start: 11-12-2022 Hepatitis B surface antibody level LDL CHOLESTEROL [facility] Start: 11-09-2022 ADVANCE DIRECTIVE DISCUSSION ADVANCE DIRECTIVE DISCUSSION [facility] Start: 11-09-2022 DEPRESSION ASSESSMENT DEPRESSION ASS ESSMENT [facility] Start: 11-05-2022 End: 01-05-2023 CBC W Auto Differential panel - Blood CBC + DIFF Lab Routine MDS (myelodysplastic syndrome) (HCC) Expected: 11/05/2022, Expires: 01/05/2023 [facility] Work Phone: Comment on above: Expected: 11/05/2022 , Expires: 01/05/2023 Start: 11-05-2022 End: 01-05-2023 Erythropoietin (EPO) [Units/volume] in Serum or Plasma ERYTHROPOIETIN/EPO Lab Routine MDS (myelodysplastic syndrome) (HCC) Expected: 11/05/2022, Expires: 01/05/2023 [facility] Work Phone: Comment on above: Expected: 11/05/2022 , Expires: 01/05/2023 Start: 10-09-2022 End: 12-09-2022 Basic metabolic 2000 panel - Serum or Plasma BASIC METABOLIC PNL Lab Routine Complete heart block (HCC) Paroxysmal atrial fibrillation (HCC) Expected: 10/09/2022 (Approximate), Expires: 12/09/2022 [facility] Work Phone: Comment on above: Expected: 10/09/2022 (Approximate), Expires: 12/09/2022 Start: 10-09-2022 End: 12-09-2022 CBC W Auto Differential panel - Blood [facility] Work Phone: Comment on above: Expected: 10/09/2022 (Approximate), Expires: 12/09/2022 Expected: 10/09/2022 , Expires: 12/09/2022 Start: 10-09-2022 End: 12-09-2022 COPPER BLOOD COPPER BLOOD Lab Routine Macrocytic anemia Expected: 10/09/2022, Expires: 12/09/2022 [facility] Work Phone: Comment on above: Expected: 10/09/2022 , Expires: 12/09/2022 Start: 10-09-2022 End: 12-09-2022 Erythropoietin (EPO) [Units/volume] in Serum or Plasma ERYTHROPOIETIN/EPO Lab Routine Macrocytic anemia Expected: 10/09/2022, Expires: 12/09/2022 [facility] Work Phone: Comment on above: Expected: 10/09/2022 , Expires: 12/09/2022 Start: 10-09-2022 End: 12-09-2022 Iron and Iron binding capacity panel - Serum or Plasma IRON + TIBC Lab Routine Anemia, unspecified type Iron deficiency Expected: 10/09/2022 (Approximate), Expires: 12/09/2022 [facility] Work Phone: Comment on above: Expected: 10/09/2022 (Approximate), Expires: 12/09/2022 Start: 09-25-2022 End: 11-25-2022 CBC W Auto Differential panel - Blood CBC + DIFF Lab Routine Anemia, unspecified type Iron deficiency Expected: 09/25/2022 (Approximate), Expires: 11/25/2022 [facility] Work Phone: Comment on above: Expected: 09/25/2022 (Approximate), Expires: 11/25/2022 Start: 09-25-2022 End: 11-25-2022 Iron and Iron binding capacity panel - Serum or Plasma IRON + TIBC Lab Routine Anemia, unspecified type Iron deficiency Expected: 09/25/2022 (Approximate), Expires: 11/25/2022 [facility] Work Phone: Comment on above: Expected: 09/25/2022 (Approximate), Expires: 11/25/2022 Start: 09-18-2022 COVID-19 VACCINE (6 - Pfizer risk series) COVID-19 VACCINE (6 - Pfizer risk series) [facility] Start: 09-11-2022 End: 11-11-2022 25-hydroxyvitamin D3 [Mass/volume] in Serum or Plasma VITAMIN D 25 HYDROXY Lab Routine Vitamin D deficiency Expected: 09/11/2022 (Approximate), Expires: 11/11/2022 [facility] Work Phone: Comment on above: Expected: 09/11/2022 (Approximate), Expires: 11/11/2022 Start: 09-11-2022 End: 11-11-2022 CBC W Auto Differential panel - Blood CBC + DIFF Lab Routine Paroxysmal atrial fibrillation (HCC) Anemia, unspecified type 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 Expected: 09/11/2022 (Approximate), Expires: 11/11/2022 [facility] Work Phone: Comment on above: Expected: 09/11/2022 (Approximate), Expires: 11/11/2022 Start: 09-11-2022 End: 11-11-2022 Comprehensive metabolic 2000 panel - Serum or Plasma COMP METABOLIC PANEL Lab Routine Paroxysmal atrial fibrillation (HCC) Essential hypertension, benign Hx of four vessel coronary artery bypass graft Mixed hyperlipidemia Expected: 09/11/2022 (Approximate), Expires: 11/11/2022 [facility] Work Phone: Comment on above: Expected: 09/11/2022 (Approximate), Expires: 11/11/2022 Start: 09-11-2022 End: 11-11-2022 Lipid 1996 panel - Serum or Plasma LIPID PANEL BASIC Lab Routine Mixed hyperlipidemia Expected: 09/11/2022 (Approximate), Expires: 11/11/2022 [facility] Work Phone: Comment on above: Expected: 09/11/2022 (Approximate), Expires: 11/11/2022 Start: 09-11-2022 End: 11-11-2022 Natriuretic peptide.B prohormone N-Terminal [Mass/volume] in Serum or Plasma NT PRO BNP Lab Routine Hx of four vessel coronary artery bypass graft Expected: 09/11/2022 (Approximate), Expires: 11/11/2022 [facility] Work Phone: Comment on above: Expected: 09/11/2022 (Approximate), Expires: 11/11/2022 Start: 09-11-2022 End: 11-11-2022 Thyrotropin [Units/volume] in Serum or Plasma TSH BLD Lab Routine Hypothyroidism, unspecified type Expected: 09/11/2022 (Approximate), Expires: 11/11/2022 [facility] Work Phone: Comment on above: Expected: 09/11/2022 (Approximate), Expires: 11/11/2022 Start: 09-11-2022 End: 11-11-2022 Thyroxine (T4) free [Mass/volume] in Serum or Plasma T4 FREE/FREE THYROX Lab Routine Hypothyroidism, unspecified type Expected: 09/11/2022 (Approximate), Expires: 11/11/2022 [facility] Work Phone: Comment on above: Expected: 09/11/2022 (Approximate), Expires: 11/11/2022 Start: 07-10-2022 Influenza vaccination INFLUENZA (#1) [facility] Start: 05-19-2022 End: 07-19-2022 CBC W Auto Differential panel - Blood CBC + DIFF Lab Routine Anemia, unspecified type Iron deficiency Expected: 05/19/2022 (Approximate), Expires: 07/19/2022 [facility] Work Phone: Comment on above: Expected: 05/19/2022 (Approximate), Expires: 07/19/2022 Start: 05-19-2022 End: 07-19-2022 IRON + TIBC IRON + TIBC Lab Routine Anemia, unspecified type Iron deficiency Expected: 05/19/2022, Expires: 07/19/2022 [facility] Work Phone: Comment on above: Expected: 05/19/2022 , Expires: 07/19/2022 Start: 04-23-2022 End: 06-23-2022 CBC W Auto Differential panel - Blood CBC + DIFF Lab Routine Anemia, unspecified type Expected: 04/23/2022, Expires: 06/23/2022 [facility] Work Phone: Comment on above: Expected: 04/23/2022 , Expires: 06/23/2022 Start: 04-23-2022 End: 06-23-2022 FERRITIN BLD FERRITIN BLD Lab Routine Anemia, unspecified type Expected: 04/23/2022, Expires: 06/23/2022 [facility] Work Phone: Comment on above: Expected: 04/23/2022 , Expires: 06/23/2022 Start: 04-23-2022 End: 06-23-2022 IRON + TIBC IRON + TIBC Lab Routine Anemia, unspecified type Expected: 04/23/2022, Expires: 06/23/2022 [facility] Work Phone: Comment on above: Expected: 04/23/2022 , Expires: 06/23/2022 Start: 04-01-2022 End: 06-01-2022 FERRITIN BLD FERRITIN BLD Lab Routine Anemia, unspecified type Iron deficiency Expected: 04/01/2022 (Approximate), Expires: 06/01/2022 [facility] Work Phone: Comment on above: Expected: 04/01/2022 (Approximate), Expires: 06/01/2022 Start: 04-01-2022 End: 06-01-2022 IRON + TIBC IRON + TIBC Lab Routine Anemia, unspecified type Iron deficiency Expected: 04/01/2022 (Approximate), Expires: 06/01/2022 [facility] Work Phone: Comment on above: Expected: 04/01/2022 (Approximate), Expires: 06/01/2022 Start: 04-01-2022 End: 06-01-2022 VITAMIN B12 BLOOD VITAMIN B12 BLOOD Lab Routine Macrocytosis Expected: 04/01/2022 (Approximate), Expires: 06/01/2022 [facility] Work Phone: Comment on above: Expected: 04/01/2022 (Approximate), Expires: 06/01/2022 Start: 12-21-2021 COVID-19 VACCINE (4 - Booster for Pfizer series) COVID-19 VACCINE (4 - Booster for Pfizer series) [facility] Start: 11-09-2021 ADVANCE DIRECTIVE DISCUSSION ADVANCE DIRECTIVE DISCUSSION [facility] Start: 11-09-2021 DEPRESSION ASSESSMENT DEPRESSION ASS ESSMENT [facility] Start: 09-28-2020 End: 09-28-2020 Appointment Appointment [facility] Work Phone: Start: 09-28-2020 End: 09-28-2020 Radex ankle complete minimum 3 views XR ANKLE 3 VWS-RT [facility] Work Phone: Start: 2010 RSV Vaccine (1 - 1-d ose 75+ series) RSV Vaccine (1 - 1-dose 75+ series) [facility] Start: 1995 RSV Vaccine (1 - 1-d ose 60+ series) RSV Vaccine (1 - 1-dose 60+ series) [facility] Start: 1953 Anxiety Screening Anxiety Screening [facility] Start: 1953 Depression Screening Depression Scre ening [facility] Anion gap in Serum o r Plasma [facility] Bilirubin measuremen t, urine [facility] BONE MARROW ANALYSIS BONE MARROW ANALYSIS Lab Routine Macrocytic anemia 10/24/2022 12:31 PM EST [facility] Work Phone: BONE MARROW CHROMOSO ME ANAL BONE MARROW CHROMOSOME ANAL Lab Routine Macrocytic anemia Ordered: 10/24/2022 [facility] Work Phone: Comment on above: Ordered: 10/24/2022 BUN/Creatinine ratio [facility] Calcium [Mass/volume ] in Serum or Plasma [facility] Carbon dioxide, tota l [Moles/volume] in Central venous blood [facility] CBC W Auto Different ial panel - Blood CBC + DIFF Lab Routine Macrocytic anemia Ordered: 10/24/2022 [facility] Work Phone: Comment on above: Ordered: 10/24/2022 End: 12-12-2023 CBC W Auto Differential panel - Blood CBC + DIFF Lab STAT 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 [employer] Work Phone: Comment on above: Every 3 weeks for 6 Occurrences starting 03/09/2023 until 03/08/2024, 1 completed CHROM ANAL W RFX MDS FISH CHROM ANAL W RFX MDS FISH Lab Routine Macrocytic anemia 10/24/2022 12:[address] 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) Every 3 weeks for 6 Occurrences starting 03/09/2023 until 03/07/2024, 1 completed [facility] [employer] Work Phone: Comment on above: Every 3 weeks for 6 Occurrences starting 03/09/2023 until 03/07/2024, 1 completed Creatinine [Mass/vol ume] in Serum or Plasma [facility] Diagnostic bone bonnie ow biopsies IMAGING GUIDED BIOPSY BONE MARROW (HEMATOLOGY) Radiology Routine Macrocytic anemia Ordered: 10/09/2022 [facility] Work Phone: Comment on above: Ordered: 10/09/2022 Digoxin [Mass/volume ] in Serum or Plasma [facility] DNA EXTRACTION BONE MARROW (BUFFY COAT) DNA EXTRACTION BONE MARROW (BUFFY COAT) Lab Routine Macrocytic anemia 10/24/2022 12:[address] 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) MDS (myelodysplastic syndrome) (HCC) Ischemic cardiomyopathy 1 Occurrences starting 07/07/2025 until 07/07/2026 [facility] Comment on above: 1 Occurrences starti ng 07/07/2025 until 07/07/2026 End: 07-07-2026 Echocardiography ECHO Cardiology Routine 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 Work Phone: FLT3 ITD HN BONE MARROW FLT3 ITD HN BONE MARROW Lab Routine Macrocytic anemia 10/24/2022 12:[address] [facility] Work Phone: Glucose [Mass/volume ] in Serum or Plasma [facility] Hemoglobin [Presence ] in Urine [facility] Hemoglobin.rosario munguia alHenriettalower [Presence] in Stool by Immunoassay FECAL OCCULT BLOOD TEST Lab Routine Anemia, unspecified type Iron deficiency Macrocytosis Ordered: 03/18/2022 [facility] Work Phone: Comment on above: Ordered: 03/18/2022 Hepb vaccine adult 3 dose schedule for im use HEP B VACCINE, 3-DOSE, AGE 20+ YR (ENGERIX-B, RECOMBIVAX HB) Immunization/Injection Routine Need for hepatitis B booster vaccination Ordered: 05/06/2023 [facility] Work Phone: Comment on above: Ordered: 05/06/2023 Lactic acid measurement [facility] Measurement of keton es in urine using dipstick [facility] Measurement of renal function [facility] Microscopic urinalysis [facility] End: 06-07-2023 Mri spinal canal lumbar w/o contrast material MRI LUMBAR SPINE WO IVCON Radiology Routine Spinal stenosis of lumbar region with neurogenic claudication 1 Occurrences starting 05/08/2022 until 06/07/2023 [facility] Work Phone: Comment on above: 1 Occurrences starti ng 05/08/2022 until 06/07/2023 Mri spinal canal lum bar w/o contrast material MRI LUMBAR SPINE WO [facility] Radiology Routine Spinal stenosis of lumbar region with neurogenic claudication 05/26/2022 3:45 PM EDT [facility] Work Phone: MYELOID NGS PANEL LUIS NE MARROW MYELOID NGS PANEL BONE MARROW Lab Routine Macrocytic anemia 10/24/2022 12:31 PM EST [facility] Work Phone: MYELOID NGS PANEL LUIS NE MARROW MYELOID NGS PANEL BONE MARROW Lab Routine Macrocytic anemia 10/24/2022 12:31 PM EST [facility] Work Phone: Patient Education Cellulitis Dc [facility] Work Phone: Patient referral [facility] Work Phone: pH of Urine [facility] Potassium measurement [facility] PT PLAN OF CARE CERTIFICATION PT PLAN OF CARE CERTIFICATION Procedures Routine 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 Urea nitrogen [Mass/volume] in Serum or Plasma [facility] Urinalysis, blood, qualitative [facility] Urine dipstick for glucose [facility] Urine dipstick for leukocyte esterase [facility] Urine dipstick for nitrite [facility] Urine dipstick for protein [facility] Urine examination [facility] Urine microscopy: epithelial cells [facility] Urine Microscopy: wh ite cells [facility] Urobilinogen [Presen ce] in Urine [facility] End: 05-05-2024 US ARM VEIN DVT UNL VAS LAB US ARM VEIN DVT UNL VAS LAB Vascular Lab STAT 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) Arm swelling 1 Occurrences starting 05/05/2023 until 05/05/2024 [facility] Work Phone: Comment on above: 1 Occurrences starti ng 05/05/2023 until 05/05/2024 End: 04-23-2024 US DVT LOWER BILATERAL US DVT LOWER BILATERAL Radiology STAT Traumatic ecchymosis of foot, right, initial encounter Bilateral calf pain Venous stasis of both lower extremities 1 Occurrences starting 03/25/2023 until 04/23/2024 [facility] Work Phone: Comment on above: 1 Occurrences starti ng 03/25/2023 until 04/23/2024 End: 06-12-2024 US DVT LOWER RIGHT US DVT LOWER RIGHT Radiology STAT Right leg pain 1 Occurrences starting 05/14/2023 until 06/12/2024 [facility] Work Phone: Comment on above: 1 Occurrences starti ng 05/14/2023 until 06/12/2024 End: 04-26-2026 US Lower extremity vein - bilateral US DVT LOWER BILATERAL Radiology STAT Lymphedema of right lower extremity Lymphedema of both lower extremities 1 Occurrences starting 03/27/2025 until 04/26/2026 [facility] Work Phone: Comment on above: 1 Occurrences starti ng 03/27/2025 until 04/26/2026 End: 02-20-2025 XR Chest PA and Lateral XR CHEST 2V FRONTAL/LAT Radiology Routine Chronic heart failure with preserved ejection fraction (HCC) 1 Occurrences starting 01/22/2024 until 02/20/2025 [facility] Work Phone: Comment on above: 1 Occurrences starti ng 01/22/2024 until 02/20/2025 XR Chest PA and Lateral XR CHEST 2V FRONTAL/LAT Radiology Routine Chronic heart failure with preserved ejection fraction (HCC) 01/22/2024 12:19 PM EDT [facility] Work Phone: End: 01-21-2025 XR Elbow - right AP and Lateral and oblique XR ELBOW SPECIAL VIEWS AP/LAT/OTHER RIGHT Radiology Routine Right elbow pain Monoarthritis of elbow, right 1 Occurrences starting 12/23/2023 until 01/21/2025 [facility] Work Phone: Comment on above: 1 Occurrences starti ng 12/23/2023 until 01/21/2025 XR Elbow - right AP and Lateral and oblique XR ELBOW SPECIAL VIEWS AP/LAT/OTHER RIGHT Radiology Routine Right elbow pain Monoarthritis of elbow, right 12/23/2023 12:39 PM EST [facility] Work Phone: End: 06-28-2023 XR KNEE LIMITED 2V AP/LAT RIGHT XR KNEE LIMITED 2V AP/LAT RIGHT Radiology Routine Pes anserine bursitis Acute pain of right knee 1 Occurrences starting 05/29/2022 until 06/28/2023 [facility] Work Phone: Comment on above: 1 Occurrences starti ng 05/29/2022 until 06/28/2023 [facility] MR [facility] [...] e 12+ yr (PFIZER-BIONTECH COMIRNATY) Arabella Moreno PRODUCT DEVELOPMENT MANAGER.TELEPHONE ORDER SUPERVISOR Work Phone: [facility] 08-22-2024 Seasonal trivalent influenza vaccine, adjuvanted, preservative free Arabella Moreno PRODUCT DEVELOPMENT MANAGER.TELEPHONE ORDER SUPERVISOR Work Phone: [facility] 08-22-2024 influenza virus vaccine, unspecified formulation Injection Wstr Work Phone: [facility] 09-22-2023 COVID-19 vaccine, ag e 12+ yr (PFIZER-BIONTECH COMIRNATY) Arabella Moreno PRODUCT DEVELOPMENT MANAGER.TELEPHONE ORDER SUPERVISOR Work Phone: [facility] 07-24-2023 influenza (HD-IIV4) vaccine, age 65+ yr, high dose, quadrivalent, PF (FLUZONE HIGH-DOSE) Arabellajudie Bates PRODUCT DEVELOPMENT MANAGER.TELEPHONE ORDER SUPERVISOR Work Phone: [facility] 07-24-2023 influenza virus vaccine, unspecified formulation Ginna Em RN Work Phone: [facility] 07-24-2022 COVID-19 vaccine, ag e 12+ yr, bivalent booster (PFIZER-BIONTECH) Israel Pruitt DO Work Phone: [facility] 07-24-2022 influenza, high-dose , quadrivalent vaccine (FLUZONE HIGH DOSE QUADRIVALENT) Israel Pruitt DO Work Phone: [facility] 07-24-2022 influenza virus vaccine, unspecified formulation Iram Johnson PRODUCT DEVELOPMENT MANAGER.TELEPHONE ORDER SUPERVISOR Work Phone: [facility] 05-19-2022 COVID-19 original vaccine, age 12+ yr, monovalent (PFIZER-BIONTECH - GEE TOP) Israel Pruitt DO Work Phone: [facility] 05-19-2022 COVID-19 vaccine, ag e 12+ yr (PFIZER-BIONTECH - PURPLE TOP) Israel Pruitt DO Work Phone: [facility] Work Phone: 08-20-2021 COVID-19 vaccine, ag e 12+ yr (PFIZER-BIONTECH - PURPLE TOP) Iram Johnson PRODUCT DEVELOPMENT MANAGER.TELEPHONE ORDER SUPERVISOR Work Phone: [facility] 08-09-2021 influenza, high-dose , quadrivalent vaccine (FLUZONE HIGH DOSE QUADRIVALENT) Iram Johnson PRODUCT DEVELOPMENT MANAGER.TELEPHONE ORDER SUPERVISOR Work Phone: [facility] 12-25-2020 COVID-19 vaccine, ag e 12+ yr (PFIZER-BIONTECH - PURPLE TOP) Iram Johnson PRODUCT DEVELOPMENT MANAGER.TELEPHONE ORDER SUPERVISOR Work Phone: [facility] 12-04-2020 COVID-19 vaccine, ag e 12+ yr (PFIZER-BIONTECH - PURPLE TOP) Iram Johnson PRODUCT DEVELOPMENT MANAGER.TELEPHONE ORDER SUPERVISOR Work Phone: [facility] 10-10-2020 influenza, high dose seasonal, preservative-free Iram Johnson PRODUCT DEVELOPMENT MANAGER.TELEPHONE ORDER SUPERVISOR Work Phone: [facility] Work Phone: 07-05-2020 zoster vaccine recombinant Iram Johnson PRODUCT DEVELOPMENT MANAGER.TELEPHONE ORDER SUPERVISOR Work Phone: [facility] 05-04-2020 zoster vaccine recombinant Iram Johnson PRODUCT DEVELOPMENT MANAGER.TELEPHONE ORDER SUPERVISOR Work Phone: [facility] 08-24-2019 influenza, high dose seasonal, preservative-free Iram Johnson PRODUCT DEVELOPMENT MANAGER.TELEPHONE ORDER SUPERVISOR Work Phone: [facility] Work Phone: 09-16-2018 influenza, high dose seasonal, preservative-free Iram Johnson PRODUCT DEVELOPMENT MANAGER.TELEPHONE ORDER SUPERVISOR Work Phone: [facility] 08-25-2017 influenza, high dose seasonal, preservative-free Iram Johnson PRODUCT DEVELOPMENT MANAGER.TELEPHONE ORDER SUPERVISOR Work Phone: [facility] 08-11-2016 influenza, high dose seasonal, preservative-free Iram Johnson PRODUCT DEVELOPMENT MANAGER.TELEPHONE ORDER SUPERVISOR Work Phone: [facility] 10-03-2015 influenza, seasonal, injectable Iram Johnson PRODUCT DEVELOPMENT MANAGER.TELEPHONE ORDER SUPERVISOR Work Phone: [facility] 07-25-2015 tetanus toxoid, redu jeff diphtheria toxoid, and acellular pertussis vaccine, adsorbed Iram Johnson PRODUCT DEVELOPMENT MANAGER.TELEPHONE ORDER SUPERVISOR Work Phone: [facility] 01-02-2015 pneumococcal conjuga te vaccine, 13 valent Iram Johnson PRODUCT DEVELOPMENT MANAGER.TELEPHONE ORDER SUPERVISOR Work Phone: [facility] 09-07-2014 influenza, seasonal, injectable Iram Johnson PRODUCT DEVELOPMENT MANAGER.TELEPHONE ORDER SUPERVISOR Work Phone: [facility] 08-17-2012 influenza virus vaccine, unspecified formulation Iram Johnson PRODUCT DEVELOPMENT MANAGER.TELEPHONE ORDER SUPERVISOR Work Phone: [facility] 08-19-2011 influenza virus vaccine, unspecified formulation Iram Johnson PRODUCT DEVELOPMENT MANAGER.TELEPHONE ORDER SUPERVISOR Work Phone: [facility] 08-13-2010 influenza virus vaccine, unspecified formulation Iram Johnson PRODUCT DEVELOPMENT MANAGER.TELEPHONE ORDER SUPERVISOR Work Phone: [facility] Work Phone: 08-01-2009 influenza virus vaccine, unspecified formulation Iram Johnson PRODUCT DEVELOPMENT MANAGER.TELEPHONE ORDER SUPERVISOR Work Phone: [facility] 11-20-2008 zoster vaccine, live Iram ascencio PRODUCT DEVELOPMENT MANAGER.TELEPHONE ORDER SUPERVISOR Work Phone: [facility] Work Phone: 10-03-2008 influenza virus vaccine, whole virus Iram Johnson PRODUCT DEVELOPMENT MANAGER.TELEPHONE ORDER SUPERVISOR Work Phone: [facility] 09-21-2007 influenza virus vaccine, whole virus Iram Johnson PRODUCT DEVELOPMENT MANAGER.TELEPHONE ORDER SUPERVISOR Work Phone: [facility] 02-07-2005 tetanus and diphther ia toxoids, adsorbed, preservative free, for adult use (2 Lf of tetanus toxoid and 2 Lf of diphtheria toxoid) Iram Johnson PRODUCT DEVELOPMENT MANAGER.TELEPHONE ORDER SUPERVISOR Work Phone: [facility] 09-08-2001 pneumococcal polysaccharide vaccine, 23 valent Iram Johnson PRODUCT DEVELOPMENT MANAGER.TELEPHONE ORDER SUPERVISOR Work Phone: [facility] 11-27-1999 hepatitis A vaccine, unspecified formulation Iram Johnson PRODUCT DEVELOPMENT MANAGER.TELEPHONE ORDER SUPERVISOR Work Phone: [facility] 11-27-1999 hepatitis B vaccine, adult dosage Iram Johnson PRODUCT DEVELOPMENT MANAGER.TELEPHONE ORDER SUPERVISOR Work Phone: [facility] 05-17-1999 hepatitis B vaccine, adult dosage Iram Johnson PRODUCT DEVELOPMENT MANAGER.TELEPHONE ORDER SUPERVISOR Work Phone: [facility] 04-10-1999 hepatitis A vaccine, unspecified formulation Iram Johnson PRODUCT DEVELOPMENT MANAGER.TELEPHONE ORDER SUPERVISOR Work Phone: [facility] 04-10-1999 hepatitis B vaccine, adult dosage Iram Johnson PRODUCT DEVELOPMENT MANAGER.TELEPHONE ORDER SUPERVISOR Work Phone: [facility] Payers Date Payer Category Payer Self-pay 2023 Medicare (Managed Care) [facility] [id number] 2023 Unknown [employer] MEDICARE ADVANTAGE O [id number] 2023-Present [phone] [address] [place] [address] [facility] [id number] 2023 Medicare [id number] 2020 Medicare UHC AARP MEDICAR E [facility] AAR MEDICARE O [id number] 2020-Present [phone] [address] [address] [place] [address] O [id number] 2000 Medicare [id number] 2000 Medicare [id number] Medicare [id number] Unknown [employer] [facility] [id number] Unknown [id number] Unknown [id number] Unknown [id number] Unknown [id number] Unknown [id number] Unknown [id number] Unknown [id number] Unknown [id number] Unknown [id number] Unknown [id number] Unknown [id number] Social History Date Type Detail Facility Start: 05-14-2023 End: 05-14-2023 Assertion Unknown if ever smoked [facility] Work Phone: Start: 08-19-2011 End: 09-27-2024 Tobacco smoking status NHIS Ex-smoker [facility] End: 08-11-1989 History of tobacco use Current smoker [facility] Start: 12-10-2021 End: 07-14-2025 Alcohol intake Current drinker of alcohol (finding) [facility] Start: 12-10-2021 End: 04-14-2023 Alcohol intake [facility] Start: 07-18-2020 End: 12-10-2022 History SDOH Alcohol Frequency 5 [facility] Start: 07-18-2020 End: 12-10-2022 History SDOH Alcohol Std Drinks 1 [facility] Start: 08-04-2012 History SDOH Alcohol Comment 1-2 beers per week [facility] Start: 07-18-2020 End: 12-10-2022 History SDOH Social Connections Get Together 2 [facility] Start: 07-18-2020 End: 12-10-2022 History SDOH Social Connections Mormonism 3 [facility] Start: 07-18-2020 End: 12-10-2022 History SDOH Physical Activity MPS 4 [facility] Start: 11-07-2019 Education 18 [facility] Start: 1935 Sex Assigned At Male [facility] Start: 02-16-2022 End: 10-06-2022 Exposure to SARS-CoV-2 (event) Not sure [facility] End: 08-11-1989 History of tobacco use Cigarette Smoker [facility] Start: 08-19-2011 End: 09-27-2024 Tobacco use and exposure Smokeless tobacco non-user [facility] Start: 07-17-2022 Tobacco Comment quit 18-19 years ago [facility] Start: 12-10-2022 History SDOH Social Connections Living 8 [facility] Start: 03-27-2023 None [facility] Start: 03-27-2023 Non-smoker [facility] Start: 12-09-2022 End: 04-14-2023 Social connection and isolation panel [facility] Do you belong to any clubs or organizations such as bahai groups, unions, fraternal or athletic groups, or school groups? Yes [facility] Are you now , , , , never or living with a partner? Living with partner [facility] How often to you hav e a drink containing alcohol? 2-4 times a month [facility] How many standard dr inks containing alcohol do you have on a typical day? 1 or 2 [facility] How often do you hav e 6 or more drinks on 1 occasion? Never [facility] Start: 10-10-2012 How hard is it for you to pay for the very basics like food, housing, medical care, and heating Not hard at all [facility] Do you feel stress - tense, restless, nervous, or anxious, or unable to sleep at night because your mind is troubled all the time - these days [OSQ] To some extent [facility] (I/We) worried wheth er (my/our) food would run out before (I/we) got money to buy more. Never true [facility] In the past 12 month s, was there a time when you were not able to pay the mortgage or rent on time? No [facility] Start: 03-12-2019 Gender identity Identifies as male gender (finding) [facility] Start: 03-12-2019 Sexual orientation Heterosexual (finding) [facility] Start: 06-16-2023 End: 12-23-2023 Alcohol intake Ex-drinker (finding) [facility] Start: 06-12-2023 Alcohol Comment rare glass of wine. [facility] Start: 06-16-2024 Alcohol Comment occ [facility] History of tobacco use Passive smoker [facility] How often to you hav e a drink containing alcohol? Monthly or less [facility] Medical Equipment Procedure Code Equipment Code Equipment Origin al Text Equipment Identifier Dates Manny Bn Smpx P [facility] - [id number] Start: 12-12-2014 Standard Humeral Head [id number] Start: 12-12-2014 Comp Paras 48mm G b Adv Anchr - [id number] Start: 12-12-2014 Stem Hum 14mm Gl ob Ap Shldr - [id number] Start: 12-12-2014 Assemb Tapr Glob Ap 135d Shldr - [id number] Start: 12-12-2014 Bobbyri Guy 8 Adriana [id number] Start: 09-17-2022 Adair Pena 53 [id number] Start: 09-17-2022 Comment on above: Description: Atrial lead Dual Pacer Biotronik- 2 [id number] Start: 09-17-2022 Comment on above: Description: 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 Initial Dual Pacer Implant. Catheter Powerpo rt Chronoflex 6fr 60cm Central Venous Without Suture Plug - [id number] Start: 12-05-2022 Ra Lead Biotronik- 2 [...] [place]. This is the name the [place] [employer] uses for: 1. Breads, rolls, [...] as ketchup INstructed on and sent in [employer] C message. Ginna Em RN July 05, 2024 [...] Facility 06-26-2025 Functional status Ambulates;Red r;Bathroom Privilege [facility] Work Phone: 01-31-2025 Total score [AUDIT-C] 1 02/01/20 11:11 AM EDT [facility] 05-18-2023 Functional status Ambulates;Chair [facility] Work Phone: 09-18-2022 Are you deaf, or do you have serious difficulty hearing No 09/18/2022 7:23 PM Citlalli Abarca, JESSY No [facility] 09-18-2022 Are you blind, or do you have serious difficulty seeing, even when wearing glasses No 09/18/2022 7:23 PM Citlalli Abarca, JESSY No [facility] 09-18-2022 Do you have serious difficulty walking or climbing stairs No 09/18/2022 7:06 PM Citlalli Abarca, JESSY No [facility] 09-18-2022 Do you have difficul ty dressing or bathing No 09/18/2022 7:06 PM Citlalli Abarca, JESSY No [facility] 09-18-2022 Because of a physica l, mental, or emotional condition, do you have difficulty doing errands alone such as visiting a physician's office or shopping No 09/18/2022 7:06 PM Citlalli Abarca, RN No [facility] Mental Status Date Assessment Result Facility 06-26-2025 Cognitive function Voice/Name [facility] Work Phone: 06-18-2025 Cognitive function Level Of Cons ciousness Awake;Alert;Appropriate;Fol lows Commands [facility] Work Phone: 05-22-2023 Cognitive function Awake;Alert;A ppropriate;Fol lows Commands [facility] Work Phone: 05-18-2023 Cognitive function Voice/Name [facility] Work Phone: 05-14-2023 Cognitive function Level Of Cons ciousness Awake;Alert;Appropriate;Fol lows Commands [facility] Work Phone: 09-18-2022 Because of a physica l, mental, or emotional condition, do you have serious difficulty concentrating, remembering, or making decisions No 09/18/2022 7:06 PM EST Ciltalli Scanlon, JESSY [facility] Clinical Notes 12-14-2012 to 07-25-2025 Codie Summers RN - 07/14/2025 3:35 PM Esha Douglas LPN - 07/07/2025 10:54 AM Baljinder Mcclelland DO - 07/07/2025 10:10 AM Mary Ann Olivares RN - 06/30/2025 9:54 AM EDT Note Date & Type Note Facility 07-25-2025 Note HNO ID: [id number] Author: TARA HOROWITZ RN Service: Care Management Author Type: Registered Nurse Type: Care Mgt Progress Note Filed: 07/25/2025 10:13 Note Text: CARE MANAGEMENT PROGRESS NOTE SERVICE DATE: 07/25/2025 SERVICE TIME: 944 LOS: 12 days IMM Follow Up Copy Given: Yes Copy given to:: Patient Method: In Person SIGNATURE: Tara Horowitz RN PATIENT NAME: Srini Luis DATE: July 25, 2025 TIME: 10:13 AM [facility] 07-25-2025 Note HNO ID: [id number] Author: TARA HOROWITZ RN Service: Care Management Author Type: Registered Nurse Type: Care Mgt Progress Note Filed: 07/25/2025 09:28 Note Text: CARE MANAGEMENT DISCHARGE NOTE SERVICE DATE: July 25, 2025 SERVICE TIME: 9:27 AM Admission Date: 07/13/2025 LOS: 12 days Discharge Arrangement Discharge Arrangement: [facility] Facility Was an expedited discharge program used?: No Services Arranged SNF Provider Name: [facility] Caregiver Assessment Caregiver is ready, willing and able to meet the patient's needs as recommended by the inter-professional team: Yes Name of Caregiver: facility staff Transportation Arrangements Transportation Arrangements: Ambulance Transportation Agency and Phone #:: [email or web address] [phone] Date of Trip: 07/25/25 Time of Trip: 1600 Type of Service: BLS Non-emergency Is Patient Medicaid Pending?: No Was transportation financial coverage discussed with family?: 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, 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 Location: [facility] Destination: [facility] Financial Care Management Responsibility: None Handoff Communication: Handoff to: Supervisor Aircraft Maintenance, Other Caregiver Supervisor Aircraft Maintenance Name/Phone: ronaldo pleitez Other Caregiver Name/Phone: Myla provided Additional Information: NA Discharge Information Row Name ED to Hosp-Admission (Current) from 07/13/2025 in [facility] Facility Agency [facility] Patient discharging to [facility] this date. Auth approved through 07/15. Transport 4pm via [employer] cot and patient and daughter notified of potential OOP cost. Dc packet on chart with post acute checklist. Passr done. CM following for transition of care. SIGNATURE: Tara Horowitz RN PATIENT NAME: Srini Luis DATE: July 25, 2025 TIME: 9:27 AM [facility] 07-24-2025 Note HNO ID: [id number] Author: YARITZA NELSON LSW Service: Care Management Author Type: Operations Superintendent Type: Care Mgt Progress Note Filed: 07/24/2025 [...] outings if needed. Family has privately hired BOOK RETAILER through [facility] to assist in care and IADLs as needed. Patient resides in [facility] apartment with all handicap accessible components. Patient current with PCP listed on file Therapy recommending snf. Patient and daughter agreeable. [facility] who [facility] accepting. Auth approved through 07/25. Passr done. Dc packet on chart with post acute checklist. AMB form done for cot transport needed. Plan snf pending cardio clearance. Cot transport needed if still on o2. CM will follow for transition of care. SIGNATURE: ARTEM Lynne PATIENT NAME: Srini Luis DATE: July 24, 2025 TIME: 2:48 PM [facility] 07-24-2025 Note HNO ID: [id number] Author: CARLEY KEYES MD Service: General Internal [...] 4. SVG t (more content not included)... [facility] 07-24-2025 Note HNO ID: [id number] Author: JESUS MANUEL TRAMMELL RN Service: Nursing Author Type: Registered Nurse Type: Progress Notes Filed: 07/24/2025 13:58 Note Text: Cardiology ETHICS MANAGER Jaxson spoke with patient regarding discharge plan and stated that if he is able to be without any shortness of breath at rest, while eating, and while ambulating he will be able to discharge. Patient will also be able to transition to Lasix 40mg IV BID from TID starting 07/25/25. [facility] 07-23-2025 Note HNO ID: [id number] Author: CARLEY KEYES MD Service: General Internal [...] occlusive disease. 3 (more content not included)... [facility] 07-22-2025 Note HNO ID: [id number] Author: CARLEY KEYES MD Service: General Internal [...] home dose Xare (more content not included)... [facility] 07-22-2025 Note HNO ID: [id number] Author: NOTE, INTERFACE, ? Service: ? Author Type: ? Type: Progress Notes Filed: 07/24/2025 09:25 Note Text: Epic Scheduled Downtime: 07/22/2025 1:00:00 AM to 07/22/2025 2:06:36 AM [facility] 07-21-2025 Note HNO ID: [id number] Author: YARITZA NELSON LSW Service: Care Management Author Type: Operations Superintendent Type: Care Mgt Progress Note Filed: 07/21/2025 [...] outings if needed. Family has privately hired BOOK RETAILER through [facility] to assist in care and IADLs as needed. Patient resides in [facility] apartment with all handicap accessible components. Patient current with PCP listed on file Therapy recommending snf. Patient and daughter agreeable. FOC is [facility] who is accepting. Auth approved through 07/25. Passr done. Dc packet on chart with post acute checklist. AMB form done for cot transport needed. Plan snf pending cardio clearance. Cot transport needed if still on o2. CM will follow for transition of care. SIGNATURE: ARTEM Lynne PATIENT NAME: Srini Luis DATE: July 21, 2025 TIME: 12:46 PM [facility] 07-21-2025 Note HNO ID: [id number] Author: CARLEY KEYES MD Service: General Internal [...] Xarelto 20 mg (more content not included)... [facility] 07-20-2025 Note HNO ID: [id number] Author: CARLEY KEYES MD Service: General Internal [...] 2. Three-vessel occl (more content not included)... [facility] 07-20-2025 Note HNO ID: [id number] Author: TARA HOROWITZ RN Service: Care Management [...] outings if needed. Family has privately hired BOOK RETAILER through [facility] to assist in care and IADLs as needed. Patient resides in [facility] apartment with all handicap accessible components. Patient current with PCP listed on file Therapy recommending snf. Patient and daughter agreeable. [facility] Auth approved through 07/25. Passr done. Dc packet on chart with post acute checklist. AMB form done for cot transport needed. Plan snf pending cardio clearance. Cot transport needed if still on o2. CM will follow for transition of care. SIGNATURE: Tara Horowitz RN PATIENT NAME: Srini Luis DATE: July 20, 2025 TIME: 10:12 AM [facility] 07-19-2025 Note HNO ID: [id number] Author: CARLEY KEYES MD Service: General Internal [...] plaque disease. B. (more content not included)... [facility] 07-19-2025 Note HNO ID: [id number] Author: BROWN, TARA, RN Service: Care Management [...] outings if needed. Family has privately hired BOOK RETAILER through [facility] to assist in care and IADLs as needed. Patient resides in [facility] apartment with all handicap accessible components. Patient [...] DATE: July 19, 2025 TIME: 11:23 AM [facility] 07-18-2025 Note HNO ID: [id number] Author: CARLEY KEYES MD Service: General Internal [...] PDA: Wide pat (more content not included)... [facility] 07-18-2025 Note HNO ID: [id number] Author: TOSIN LAZO RN Service: Care Management Author Type: Registered [...] DATE: July 18, 2025 TIME: 12:21 PM [facility] 07-17-2025 Note HNO ID: [id number] Author: CARLEY KEYES MD Service: General Internal [...] does not ap (more content not included)... [facility] 07-17-2025 Note HNO ID: [id number] Author: TARA HOROWITZ RN Service: Care Management Author Type: Registered Nurse Type: Care Mgt Progress Note Filed: 07/17/2025 09:40 Note Text: CARE MANAGEMENT PROGRESS NOTE SERVICE DATE: 07/17/2025 SERVICE TIME: 9:40 AM LOS: 4 days Chart reviewed. Patient admitted from home alone for sepsis, LLE cellulitis, CHF exacerbation. ATB discontinued. Cardio consulted. Patient on RA, hep gtt, pending [facility] today. Patient A/Ox3, daughter, liza, bedside. Patient functionally independent, ambulatory with cane in the apartment, electric scooter for outings if needed. Family has privately hired BOOK RETAILER through [facility] to assist in care and IADLs as needed. Patient resides in [facility] apartment with all handicap accessible components. Patient current with PCP listed on file. Plan home no needs identified. CM will follow for transition of care. SIGNATURE: Tara Horowitz RN PATIENT NAME: Srini Luis DATE: July 17, 2025 TIME: 9:39 AM [facility] 07-16-2025 Note HNO ID: [id number] Author: CARLEY KEYES MD Service: General Internal [...] heart rate Continu (more content not included)... [facility] 07-16-2025 Note HNO ID: [id number] Author: JACK ALONSO RN Service: Care Management Author Type: Registered Nurse Type: Care Mgt Progress Note Filed: 07/16/2025 10:25 Note Text: CARE MANAGEMENT PROGRESS NOTE SERVICE DATE: 07/16/2025 SERVICE TIME: 10:25 AM LOS: 3 days IMM Follow Up Copy Given: Yes Copy given to:: Patient Method: In Person SIGNATURE: Jack Alonso RN PATIENT NAME: Srini Luis DATE: July 16, 2025 TIME: 10:25 AM [facility] 07-15-2025 Note HNO ID: [id number] Author: CARLEY KEYES MD Service: General Internal [...] metoprolol succinate 12 (more content not included)... [facility] 07-14-2025 Note [facility] 07-14-2025 History of Presen t illness Narrative Transitional Care Management (TCM) Inpatient Outreach N/A - No specialty updates needed Summary: Patient admitted to: [facility] Patient admitted on: (Not on file) Admitted for: CHF Contact made with patient: No, MyChart message sent. Outreach ended. Codie Summers RN July 14, 2025 documented in this encounter [facility] 07-14-2025 Note HNO ID: [id number] Author: CARLEY KEYES MD Service: General Internal [...] recently treated fo (more content not included)... [facility] 07-14-2025 Note HNO ID: [id number] Author: TARA HOROWITZ RN Service: Care Management [...] Current Advance Directive: Health Care Power of Director Blood Bank In Chart: Yes Up To Date and [...] Be able to go home, General wellness Mission of Choice Explained: Are you interested in [...] were you homeless or living in a penitentiary (including now)?: No Utilities In the past 12 months has the [employer], gas, oil, or water [employer] threatened to shut off services in your home?: No Post-Acute Discharge Plan: Chart reviewed. Patient admitted from home alone for sepsis, LLE cellulitis, CHF exacerbation. Cardio consulted. Patient on RA, IVAB, pending echo. Patient A/Ox3, daughter, liza, bedside. Patient functionally independent, ambulatory with cane in the apartment, electric scooter for outings if needed. Family has privately hired BOOK RETAILER through [facility] to assist in care and IADLs as needed. Patient resides in [facility] apartment with all handicap accessible components. Patient current with PCP listed on file. Plan home no needs identified. CM will follow for transition of care. SIGNATURE: Tara Horowitz RN PATIENT NAME: Srini Luis DATE: July 14, 2025 TIME: 12:10 PM [facility] 07-14-2025 Note HNO ID: [id number] Author: ELVIN CAGLE RN Service: ? Author Type: Registered Nurse Type: Progress Notes Filed: 07/14/2025 09:39 Note Text: 1.3ML OF DEFINITY MIXED WITH 8.7ML OF NORMAL SALINE. 2ML OF DEFINITY GIVEN FOR ECHOCARDIOGRAM TO ENHANCE IMAGES. NO REACTION NOTED. [facility] 07-13-2025 Note HNO ID: [id number] Author: MARCELINO LAUREANO RPh Service: Pharmacy Author [...] stating it was current/updated and Pharmacy records: [facility] Medication nonadherence identified: No barriers noted Preferred outpatient pharmacy: [facility], [employer] [place] [address] [address] [facility] [phone] [address] [facility] [address] [address] [address] [facility] [phone] Allergies: Simvastatin Other: See Comments Comment:Elevated CK [...] Facility-Administered Medications: None Marcelino Laureano RPh 07/13/2025 [facility] 07-07-2025 Note [facility] 07-07-2025 History of Presen t illness Narrative Aranesp injection deferred, treatment parameter not met. Hgb 10.7 For all other information regarding today, see today's OV note with Dr Galloway. Esha Jackson LPN documented in this encounter [facility] 07-07-2025 Note [facility] 07-07-2025 History of Presen t illness [...] (with VAFs): SF3B1 p.H662Q (41.7%) and TET2 p.R7046Erg*6 (46%). The overall findings are consistent with a 2021 [facility] and 5th edition WHO diagnosis of [...] as an outlier. Normal cytogenetics. Moved from [place] to assisted living at [facility]. Established care here. Drives. Current therapy: 1) Azacitidine. Cycle 10/14/2023. Most recent cycle 05/2023. He was also diagnosed with acute DVT of the internal jugular vein on the right. This occurred despite anticoagulation with rivaroxaban. Port was removed. He was admitted to [facility] 05/15 through 05/18 for gram-negative bacteremia attributed to right lower extremity cellulitis. He was initially treated with IV broad-spectrum antibiotics including Zosyn and discharged on Levaquin. Blood cultures cleared prior to discharge. Presents for ongoing oncologic management. Interim history: He was admitted to [facility] with bilateral lower extremity cellulitis. He had rather rapid worsening of lower extremity edema. Reviewed his weight curve. Significant weight gain after he was seen here at the end of May. He recalls having an EKG at [facility]. (I checked the electronic record. 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 ([facility]) 12/01/2022 CVA (cerebral vascular accident) ([facility]) 08/22/2022 Diverticulosis H/O echocardiogram 09/16/2022 EF 68 5 %, mod concentric LVH, mod TR, mild-mod MR with mod MAC History of anemia History of CVA (cerebrovascular accident) 08/22/2022 Pontine infarction, R>L History of stress test 10/12/2024 EF 43%, mild ischemia involving the apex 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 Vitamin D deficiency 07/11/2020 PAST SURGICAL HISTORY Procedure Laterality Date ANKLE RIGHT OP SURGERY Right 12/18/2020 Dr Arreola [facility] ARTHROPLASTY TOTAL SHOULDER 11/09/2008 right ARTHROSCOPY OF JOINT UNLISTED 2000 Elbow right CABG (4) VEIN GRAFTS & ARTERIAL GRAFT(S) 07/21/2021 In [facility] COLONOSCOPY FLX DX W/COLLJ SPEC WHEN PFRMD 09/01/2005 Colonoscopy COLONOSCOPY FLX DX W/COLLJ SPEC WHEN PFRMD 09/27/2015 Colonoscopy REMOVAL OF TONSILS,<12 Y/O S $ DUAL CHMBR PACER C1785 Left 09/17/2022 Dual Pacer ([employer]) for High Grade AV Blk below His; [...] -Will communicate results of echocardiogram to his scrip clerk. -Continue every 2 week Aranesp if Hgb [...] which included preparing to see the patient, [id number] patient care, completing clinical documentation, performing a medically appropriate examination, counseling and educating the patient/family/caregiver, ordering medications, tests, or procedures, communicating with other HCPs (not separately reported), and communicating results to the patient/family/caregiver. Baljinder Galloway DO documented in this encounter [facility] 06-30-2025 Telephone encounter Note Faxed order and daughter notified Lupis Clarke MA [facility] 06-30-2025 Miscellaneous Notes Faxed order and [...] anymore. If agreeable please fax order to [facility] at [phone]. Mary Ann Pabon RN documented in this encounter [facility] 06-30-2025 Telephone encounter Note ASSESSMENT/PLAN: 1. 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 Spinal stenosis of lumbar region with neurogenic claudication - ICD9: 724.03, ICD10: M48.062 - SEAT LIFT MECHANISM COMBL Ronaldo Pleitez MD [facility] 06-30-2025 Telephone encounter Note Patient's Daughter Liza calls and is asking provider can write an order for a lift recliner? Patient is unable to operate his manual recliner anymore. If agreeable please fax order to [facility] at [phone]. Mary Ann Pabon RN [facility] 06-29-2025 Note [facility] 06-29-2025 History of Presen t illness [...] 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 ([facility]) Cva (Cerebral Vascular Accident) ([facility]) Longterm Current Use of Anticoagulant Lymphedema of Both Lower Extremities Osteoarthritis, Generalized Benign Hypertension Diverticulosis Nocturnal Hypoxemia Rbbb Restless Leg Syndrome Mds (Myelodysplastic Syndrome) ([facility]) Myasthenia Gravis ([facility]) Vertebral Artery Occlusion, Left Venous Stasis of Both Lower Extremities Status Post Ligation of Left Atrial Appendage Pvc's (Premature Ventricular Contractions) 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 ([facility]) History of Cva (Cerebrovascular Accident) Chronic Atrial Fibrillation ([facility]) Chb (Complete Heart Block) ([facility]) Objective BP 118/72 (BP Site: Left Arm, [...] Ronaldo Pleitez MD documented in this encounter [facility] 06-26-2025 Discharge summary [facility] 06-26-2025 Discharge summary [facility] 06-26-2025 Note [facility] Medical Records Department [address] [place] [address] Discharge Summary 06/26/25 1041 MR#: [id number] Acct: [id number] Name: SRINI LUIS Rep #: [id number] : 1935 89 From: Marshal Rebolledo MD PCP: Dr. Ronaldo Pleitez MD Status:ADM IN Location: MS3 PR298-7 Providers Date of Admission: 06/23/25 Date of [...] (Auto) 68.2, Lymph % (Auto) 14.5 L, Vance % (Auto) 15.5 H, Eos % (Auto) [...] (Auto) 69.2, Lymph % (Auto) 12.5 L, Vance % (Auto) 15.6 H, Eos % (Auto) [...] (Xarelto) 20 m (more content not included)... [facility] 06-25-2025 Progress note Note Date/Time June 25, 2025 11:20am [facility] Medical Records Department [address] [place] [address] Progress Note - Hospitalist 06/25/257 MR#: [id number] Acct: [id number] Name: SRINI LUIS Rep #:[id number] : 1935 89 From: Marshal Nuñez PCP: Dr. Ronaldo Pleitez MD Status:A DM IN Location: MS3 [id number] Reason for Visit Chief Complaint: Increasing left [...] Coeff of Luis Alberto 26.7 H, Plt Ragcf969, MPV 10.6, Immature Gran % (Auto) 0.300, Neut % (Auto) 68.2, Lymph % (Auto) 14.5 L, Vance % (Auto) 15.5 H, Eos % (Auto) [...] Coeff of Luis Alberto 26.6 H, Plt Bnwmj628, MPV 11.1, Immature Gran % (Auto) 0.400, Neut % (Auto) 69.2, Lymph % (Auto) 12.5 L, Vance % (Auto) 15.6 H, Eos % (Auto) [...] Calcium 8.7 Charges/Coding Visit Charges Inpatient E&M: 40700 Subs Hosp L2 06/25/25 1120 <Electronically signed by Marshal Rebolledo MD> Cosigner Signature (if applicable): CC: ~ Signed [facility] Work Phone: 1(128) 886-194508-17-2025 Progress note [facility] Medical Records Department [address] [place] [id number] Progress Note - Hospitalist 06/25/25 1117 MR#: [id number] Acct: [id number] Name: SRINI LUIS Rep #:[id number] : 1935 89 From: Marshal Nuñez PCP: Dr. Ronaldo Pleitez MD Status:A DM IN Location: MS3 [id number] Reason for Visit Chief Complaint: Increasing left [...] Coeff of Luis Alberto 26.7 H, Plt Ulwrl961, MPV 10.6, Immature Gran % (Auto) 0.300, Neut % (Auto) 68.2, Lymph % (Auto) 14.5 L, Vance % (Auto) 15.5 H, Eos % (Auto) [...] Coeff of Luis Alberto 26.6 H, Plt Gxlhr580, MPV 11.1, Immature Gran % (Auto) 0.400, Neut % (Auto) 69.2, Lymph % (Auto) 12.5 L, Vance % (Auto) 15.6 H, Eos % (Auto) [...] Calcium 8.7 Charges/Coding Visit Charges Inpatient E&M: 53880 Subs Hosp L2 06/25/25 1120 Cosigner Signature (if applicable): CC: ~ Signed [facility]08-16-2025 Progress note Author Marshal Rebolledo [facility] Note Date/Time June 24, 2025 2: 28pm [facility] Medical Records Department [address] [place] [address] Progress Note - Hospitalist 06/24/25 1015 MR#: [id number] Acct: [id number] Name: DOMINGOSRINI DALY Rep #:[id number] : 1935 89 From: Marshal Nñuez PCP: Dr. Ronaldo Pleitez MD Status:A DM IN Location: MS3 [id number] Reason for Visit Chief Complaint: Increasing left [...] Coeff of Luis Alberto 26.7 H, Plt Vkyez156, MPV 10.6, Immature Gran % (Auto) 0.300, Neut % (Auto) 68.2, Lymph % (Auto) 14.5 L, Vance % (Auto) 15.5 H, Eos % (Auto) [...] Coeff of Luis Alberto 26.6 H, Plt Vajgt524, MPV 11.1, Immature Gran % (Auto) 0.400, Neut % (Auto) 69.2, Lymph % (Auto) 12.5 L, Vance % (Auto) 15.6 H, Eos % (Auto) [...] Coeff of Luis Alberto 26.7 H, Plt Jymte155, MPV 10.6, Immature Gran % (Auto) 0.300, Neut % (Auto) 68.2, Lymph % (Auto) 14.5 L, Vance % (Auto) 15.5 H, Eos % (Auto) [...] Coeff of Luis Alberto 26.6 H, Plt Duson005, MPV 11.1, Immature Gran % (Auto) 0.400, Neut % (Auto) 69.2, Lymph % (Auto) 12.5 L, Vance % (Auto) 15.6 H, Eos % (Auto) [...] Calcium 8.7 Charges/Coding Visit Charges Inpatient E&M: 16832 Subs Hosp L2 06/24/25 1427 <Electronically signed by Marshal Rebolledo MD> Cosigner Signature (if applicable): CC: ~ Signed ADDENDUM by Dr. Marshal Rebolledo MD on 06/24/25 at 1428 Addendum Anemia of chronic disease: H&H stable at 9.3/28.6%. No significant change from yesterday. 06/24/251427<Electronically signed by Marshal Rebolledo MD> Cosigner Signature (if applicable): cc: ~* Signed [facility] Work Phone: 1(742) 163-607308-16-2025 Progress note [facility] Medical Records Department [address] [place] [address] Progress Note - Hospitalist 06/24/25 1015 MR#: [id number] Acct: [id number] Name: SRINI LUIS Rep #:[id number] : 1935 89 From: Marshal Nuñez PCP: Dr. Ronaldo Pleitez MD Status:A DM IN Location: MS3 [id number] Reason for Visit Chief Complaint: Increasing left [...] Coeff of Luis Alberto 26.7 H, Plt Bsyaz145, MPV 10.6, Immature Gran % (Auto) 0.300, Neut % (Auto) 68.2, Lymph % (Auto) 14.5 L, Vance % (Auto) 15.5 H, Eos % (Auto) [...] Coeff of Luis Alberto 26.6 H, Plt Xdtyc104, MPV 11.1, Immature Gran % (Auto) 0.400, Neut % (Auto) 69.2, Lymph % (Auto) 12.5 L, Vance % (Auto) 15.6 H, Eos % (Auto) [...] Coeff of Luis Alberto 26.7 H, Plt Apjxj128, MPV 10.6, Immature Gran % (Auto) 0.300, Neut % (Auto) 68.2, Lymph % (Auto) 14.5 L, Vance % (Auto) 15.5 H, Eos % (Auto) [...] Coeff of Luis Alberto 26.6 H, Plt Cnxmn809, MPV 11.1, Immature Gran % (Auto) 0.400, Neut % (Auto) 69.2, Lymph % (Auto) 12.5 L, Vance % (Auto) 15.6 H, Eos % (Auto) [...] Calcium 8.7 Charges/Coding Visit Charges Inpatient E&M: 78953 Subs Hosp L2 06/24/25 1427 Cosigner Signature (if applicable): CC: ~ Signed ADDENDUM by Dr. Marshal Rebolledo MD on 06/24/25 at 1428 Addendum Anemia of chronic disease: H&H stable at 9.3/28.6%. No significant change from yesterday. 06/24/251427 Cosigner Signature (if applicable): cc: ~* Signed [facility]08-15-2025 History and physical note Author Mary Prather [facility] Note Date/Time June 23, 2025 5: 14pm [facility] Medical Records Department [address] [place] [address] H&P Exam - Hospitalist 06/23/25 1621 MR#: [id number] Acct: [id number] Name: SRINI LUIS Rep #:[id number] : 1935 89 From: Mary Prather MD PCP: Dr. Ronaldo Pleitez MD Status:R EG ER Location: ED HPI - General General Date of Admission: 06/23/25 Date of Service: 06/23/25 Chief Complaint: Increasing left lower extremity swelling HPI Narrative SRINI LUIS, is a 89-year-old male history of CABG, CVA, pacemaker, A-fib on Xarelto, hypothyroidism, CML who presented to [facility] ED 06/23/2025 with worsening cellulitis of [...] chills, no other new or acute complaints [facility] Medical History Cellulitis CMML (chronic [...] Coeff of Luis Alberto 26.7 H, Plt Kdjel753, MPV 10.6, Immature Gran % (Auto) 0.300, Neut % (Auto) 68.2, Lymph % (Auto) 14.5 L, Vance % (Auto) 15.5 H, Eos % (Auto) [...] Prather MD Charges/Coding Visit Charges Inpatient E&M: 61071 Init Hosp L2 06/23/25 1714 <Electronically signed by Mary Prather MD> Cosigner Signature (if applicable): CC: Dr. Mary Prather MD; Dr. Ronaldo Pleitez MD~ Signed [facility] Work Phone: 1(543) 337-112608-15-2025 Evaluation note* Diagnosis Onset Date Resolution Status Admit Date Cellulitis of left leg acute Au marylou 2024 4:21pm Chronic anticoagulation acute A ugust 2024 4:21pm History of atrial fibrillation acute June 23, 2025 4:21pm History of chronic myeloid leukemia acute June 23 4:21pm History of stroke acute June 23, 2025 4:21pm [facility] Work Phone: 1(704) 922-127208-15-2025 Discharge summary Author Jere Gorman [facility] Note Date/Time June 23, 2025 3: 43pm [facility] Medical Records Department [address] [place] [address] Emergency Department Summary 06/23/25 MR#: [id number] Acct: [id number] Name: SRINI LUIS Rep #:[id number] : [...] through his [facility] physicians this redness is getting worse so [...] (Auto) 68.2 Lymph % (Auto) 14.5 L Vance % (Auto) 15.5 H Eos % (Auto) [...] MD [Primary Care Provider] - Print Language: [place] Disposition Disposition: Acute Care Hospital [facility] What to do if you have Problems For any increased pain, shortness of breath, bleeding, nausea or vomiting, chestpain, or any unexpected problems, contact your Primary Care Provider. Call [facility] ([phone]) or report to the closest Emergency Room. Call 911 if necessary. 06/23/25 1543 <Electronically signed by Jere Gorman MD> Cosigner Signature (if applicable): CC: Dr. Ronaldo Pleitez MD ~ Signed [facility] Work Phone: 1(958) 419-470808-15-2025 History and physical note [facility] Medical Records Department [address] [place] [address] H&P Exam - Hospitalist 06/23/25 1621 MR#: [id number] Acct: [id number] Name: SRINI LUIS Rep #:[id number] : 1935 89 From: Mary Prather MD PCP: Dr. Ronaldo Pleitez MD Status:R EG ER Location: ED HPI - General General Date of Admission: 06/23/25 Date of Service: 06/23/25 Chief Complaint: Increasing left lower extremity swelling HPI Narrative SRINI LUIS, is a 89-year-old male history of CABG, CVA, pacemaker, A-fib on Xarelto, hypothyroidism, CML who presented to [facility] ED 06/23/2025 with worsening cellulitis of [...] chills, no other new or acute complaints [facility] Medical History Cellulitis CMML (chronic [...] Coeff of Luis Alberto 26.7 H, Plt Wlhue190, MPV 10.6, Immature Gran % (Auto) 0.300, Neut % (Auto) 68.2, Lymph % (Auto) 14.5 L, Vance % (Auto) 15.5 H, Eos % (Auto) [...] Prather MD Charges/Coding Visit Charges Inpatient E&M: 60608 Init Hosp L2 06/23/25 1714 Cosigner Signature (if applicable): CC: Dr. Mary Prather MD; Dr. Ronaldo Pleitez MD~ Signed [facility]08-15-2025 Discharge summary [facility] Medical Records Department [address] [place] [address] Emergency Department Summary 06/23/25 MR#: [id number] Acct: [id number] Name: SRINI LUIS Rep #:[id number] : [...] through his [facility] physicians this redness is getting worse so [...] (Auto) 68.2 Lymph % (Auto) 14.5 L Vance % (Auto) 15.5 H Eos % (Auto) [...] MD [Primary Care Provider] - Print Language: [place] Disposition Disposition: Acute Care Hospital [facility] What to do if you have Problems For any increased pain, shortness of breath, bleeding, nausea or vomiting, chestpain, or any unexpected problems, contact your Primary Care Provider. Call [facility] ([phone]) or report tothe closest Emergency Room. Call 911 if necessary. 06/23/25 1543 Cosigner Signature (if applicable): CC: Dr. Ronaldo Pleitez MD ~ Signed [facility] History of Present illness Narrative* Esha Jackson LPN - 06/23/2025 11:37 AM EDT Patient here for injection of Aranesp. Given SQ in left arm. Patient tolerated well. For all other information regarding today, see today's OV note with Dr Pleitez today. Esha Jackson LPN [facility] Instructions* Patient Instructions* Ronaldo Pleitez MD - 06/23/2025 10:37 AM EDT YOUR CELLULITIS IS NOT IMPROVING. INPATIENT MANAGEMENT IS MY RECOMMENDATION. PLEASE PROCEED TO THE ER. 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 ([facility]) Cva (Cerebral Vascular Accident) ([facility]) Longterm Current Use of Anticoagulant Lymphedema of Both Lower Extremities Osteoarthritis, Generalized History of Anemia Benign Hypertension Diverticulosis Nocturnal Hypoxemia Rbbb Restless Leg Syndrome Mds (Myelodysplastic Syndrome) ([facility]) Myasthenia Gravis ([facility]) Vertebral Artery Occlusion, Left Venous Stasis of Both Lower Extremities 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[facility] [facility]) Status Post Ligation of Left Atrial Appendage Pvc's (Premature Ventricular Contractions) History of Stress Test H/O Echocardiogram 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 [facility]. Patient and daughter indicated understanding and willingness to follow recommendation. 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 Current Use of Anticoagulant Lymphedema of Both Lower Extremities Osteoarthritis, Generalized History of Anemia Benign Hypertension Diverticulosis Nocturnal Hypoxemia Rbbb Restless Leg Syndrome Mds (Myelodysplastic Syndrome) ([facility]) Myasthenia Gravis ([facility]) Vertebral Artery Occlusion, Left Venous Stasis of Both Lower Extremities 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[facility]) Status Post Ligation of Left Atrial Appendage Pvc's (Premature Ventricular Contractions) History of Stress Test H/O Echocardiogram 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 Pt daughter agreeable [facility]08-11-2025 Miscellaneous Notes* Telephone Encounter - Lakesha Pabon MA - 06/19/2025 1:12 PM EDT Pt daughter called and notified per iram I think it is okay to take the increased dose of Lasix in the short-term, it will help with healingthe cellulitis along with antibiotic. Pt daughter agreeable * Telephone Encounter - Iram Johnson, MARTIN.TELEPHONE ORDER SUPERVISOR - 06/19/2025 11:45 AM EDT I think it is okay to take the increased dose of Lasix in the short-term, it will help with healingthe cellulitis along with antibiotic. * Telephone Encounter - Shilpa Abraham MA - 06/19/2025 11:07 AM EDT Patient went to [facility] over the weekend for his swelling. He is being treated for Cellulitis and was given an antibiotic for a week. He did have a doppler and it was negative for a clot. She is asking if he should continue taking the increased dose of Lasix after a week? documented in this encounterZanesville City Hospital08-11-2025 Telephone encounter Note * Telephone Encounter - Iram Johnson APRN.MAURICIO - 06/19/2025 11:45 AM EDT I think it is okay to take the increased dose of Lasix in the short-term, it will help with healingthe cellulitis along with antibiotic. [facility]08-11-[facility] Telephone encounter Note* Telephone Encounter - Shilpa Abraham MA - 06/19/2025 11:07 AM EDT Patient went to [facility] over the weekend for his swelling. He is being treated for Cellulitis and was given an antibiotic for a week. He did have a doppler and it was negative for a clot. She is asking if he should continue taking the increased dose of Lasix after a week? [facility]08-05-20[facility] Telephone encounter Note* Telephone Encounter - Arabella Moreno APRN.CNP - 06/13/2025 8:59 AM EDT Noted Arabella Moreno APRN.CNP [facility]08-05-2025 Miscellaneous Notes* Telephone Encounter - Arabella Moreno APRN.CNP - 06/13/2025 8:59 AM EDT Noted Arabella Moreno APRN.CNP * Telephone Encounter - Jody Nesbitt MA - 06/13/2025 8:37 AM EDT Please see pt update Jody Nesbitt MA documented in this encounterZanesville City Hospital08-05-2025 Telephone encounter Note * Telephone Encounter - Jody Nesbitt MA - 06/13/2025 8:37 AM EDT Please see pt update Jody Nesbitt MA [facility]08-01-2025 NoteHNO ID: [id number] Author: ESHA JACKSON LPN Service: ? Author Type: LICENSED NURSE Type: Progress Notes Filed: 06/09/2025 10:03 Note Text: Patient here for injection of Aranesp. Given SQ in right arm. Patient tolerated well. Esha Jackson [facility]08-01-2025 History of Present illness Narrative* Esha Jackson LPN - 06/09/2025 9:49 AM EDT Patient here for injection of Aranesp. Given SQ in right arm. Patient tolerated well. Esha Jackson LPN documented in this encounterZanesville City Hospital07-28-2025 NoteSalem [facility]07-28-2025 History of Present illness Narrative* Arabella Moreno, PRODUCT DEVELOPMENT MANAGER.[facility] - 06/05/2025 3:05 PM EDT Images from the original note were not included. CC: Patient presents with: Recheck: Wound check-left arm HPI Recording using [employer] software for draft documentation of the visit was discussed with the patient/authorized insurance healthcare representative; all questions welcomed and answered. 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 ([facility]) 12/01/2022 CVA (cerebral vascular accident) ([facility]) 08/22/2022 Diverticulosis H/O echocardiogram 09/16/2022 EF 68 5 %, mod concentric LVH, mod TR, mild-mod MR with mod MAC History of anemia History of CVA (cerebrovascular accident) 08/22/2022 Pontine infarction, R>L History of stress test 10/12/2024 EF 43%, mild ischemia involving the apex Hx of CABG 07/22/2021 4 vessel CABG with ORNELAS-LAD, SVG-RI, SVG-OM, and SVG-RCA in [place] Hypertension 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 Vitamin D deficiency 07/11/2020 PAST SURGICAL HISTORY Procedure Laterality Date ANKLE RIGHT OP SURGERY Right 12/18/2020 Dr Arreola [facility] ARTHROPLASTY TOTAL SHOULDER 11/09/2008 right ARTHROSCOPY OF [...] Patient agreeable to treatment plan. Arabella Moreno APRN.TELEPHONE ORDER SUPERVISOR documented in this encounterZanesville City Hospital07-22-2025 NoteSalem [facility] Center07-22-2025 History of Present illness Narrative* Arabella Moreno, PRODUCT DEVELOPMENT MANAGER.TELEPHONE ORDER SUPERVISOR - 05/30/2025 1:28 PM EDT Images from the original note were not included. CC: Patient presents with: Wound Care: Recheck wounds on left arm HPI Recording using [employer] software for draft documentation of the visit was discussed with the patient/authorized insurance healthcare representative; all questions welcomed and answered. 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 ([facility]) 12/01/2022 CVA (cerebral vascular accident) ([facility]) 08/22/2022 Diverticulosis H/O echocardiogram 09/16/2022 EF 68 5 %, mod concentric LVH, mod TR, mild-mod MR with mod MAC History of anemia History of CVA (cerebrovascular accident) 08/22/2022 Pontine infarction, R>L History of stress test 10/12/2024 EF 43%, mild ischemia involving the apex 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 [...] RIGHT OP SURGERY Right 12/18/2020 Dr Arreola [facility] ARTHROPLASTY TOTAL SHOULDER 11/09/2008 right ARTHROSCOPY OF [...] seek medical attention if these occur. 2. [facility] (current) use of anticoagulants (Z79.01) Anticoagulant therapy [...] Patient agreeable to treatment plan. Arabella Moreno APRN.TELEPHONE ORDER SUPERVISOR documented in this encounterZanesville City Hospital07-22-2025 Instructions* Patient Instructions* Arabella Moreno APRN.TELEPHONE ORDER SUPERVISOR - 05/30/2025 1:15 PM EDT We discussed [...] been sent to your preferred pharmacy ([facility]). - Take this medication with food. - [...] please contact our office. documented in this encounterZanesville City Hospital07-18-2025 NoteHNO ID: [id number] Author: ESHA JACKSON LPN Service: ? Author Type: LICENSED NURSE Type: Progress Notes Filed: 05/26/2025 10:18 Note Text: Aranesp injection given SQ in RLQ. Patient tolerated well. Esha Jackson LPN [facility]07-18-2025 History of Present illness Narrative* Esha Jackson LPN - 05/26/2025 9:26 AM EDT Aranesp injection given SQ in RLQ. Patient tolerated well. Esha Jackson LPN documented in this encounterZanesville City Hospital07-18-2025 Telephone encounter Note * Telephone Encounter - Lupis Clarke MA - 05/26/2025 9:00 AM EDT Patient notified and took today dose already so aware none sat/sun/ or Thursday till seen in office. Lupis Clarke MA [address]18-2025 Miscellaneous Notes* Telephone Encounter - Lupis [...] follow-up Ariel Moreno APRN.CNP documented in this encounterZanesville City Hospital07-18-2025 Telephone encounter Note * Telephone Encounter - Arabella Moreno APRN.CNP - 05/26/2025 6:26 AM EDT Please call patient and make sure he is aware to hold the Xarelto until he is seen for follow-up Ariel Moreno APRN.CNP [facility]07-18-2025 NoteSalem [facility]07-18-2025 History of Present illness Narrative* Arabella Moreno APRN.CNP - 05/26/2025 6:24 AM EDT Images from the original note were not included. CC: Patient presents with: Fall: fell 4 days ago. Wound is bleeding and soaking through gauze HPI Recording using [employer] software for draft documentation of the visit was discussed with the patient/authorized insurance healthcare representative; all questions welcomed and answered. Patient/authorized insurance healthcare representative agreed to proceed Narinder Luis is a 89-year-old male, with a history of atrial fibrillation on Xarelto, presenting with persistent bleeding from multiple lacerations sustained during a fall. Narinder sustained multiple skin tears to the left arm during a fall in the refractive surgeon on Thursday. 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 ([facility]) 12/01/2022 CVA (cerebral vascular accident) ([facility]) 08/22/2022 Diverticulosis H/O echocardiogram 09/16/2022 EF 68 5 %, mod concentric LVH, mod TR, mild-mod MR with mod MAC History of anemia History of CVA (cerebrovascular accident) 08/22/2022 Pontine infarction, R>L History of stress test 10/12/2024 EF 43%, mild ischemia involving the apex 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 [...] RIGHT OP SURGERY Right 12/18/2020 Dr Arreola [facility] ARTHROPLASTY TOTAL SHOULDER 11/09/2008 right ARTHROSCOPY OF [...] for now. Patient and daughter agreeable. 2. [facility] (current) use of anticoagulants (Z79.01) Patient is on Xarelto, which contributes to prolonged bleeding from skin tears. - Stop Xarelto until follow-up on Thursday - Monitor for any signs of excessive bleeding. I spent a total of 30 minutes on the date of the service which included preparing to see the patient, [id number] patient care, completing clinical documentation, performing a medically appropriate examination, wound management and counseling and educating the patient/family/caregiver. Prescription instructions reviewed with patient as applicable. Potential red flag symptoms discussed with the patient. Reviewed appropriate action plan to take if red flag symptoms occur. Patient agreeable to treatment plan. Arabella Moreno APRN.TELEPHONE ORDER SUPERVISOR documented in this encounterZanesville City Hospital07-15-2025 Telephone encounter Note * Telephone Encounter - Ronaldo Pleitez MD - 05/23/2025 1:17 PM EDT Okay. Continue to monitor situation. [facility]07-15-2025 Miscellaneous Notes* Telephone Encounter - Ronaldo Pleitez MD - 05/23/2025 1:17 PM EDT Okay. Continue to monitor situation. * Telephone Encounter - Samara Baker RN - 05/23/2025 9:53 AM EDT Appears per note in appt phone comments that pt is at [facility]. Confirmed address is for [facility]. Nurse number listed in those comments- called and had to leave a msg for them to call us back. Called and spoke with feeder worker power unit operator at [facility] and she states that pt is now [...] The fall on Thursday, the nurses at [facility] did not respond right away so pt [...] more is needed. * Telephone Encounter - oRnaldo Pleitez MD - 05/23/2025 8:22 AM EDT Check with intermediate staff for additional insight on falling episodes. [...] Mary Ann Pabon, RN documented in this encounterZanesville City Hospital07-15-2025 Telephone encounter Note * Telephone Encounter - Samara Baker RN - 05/23/2025 9:53 AM EDT Appears per note in appt phone comments that pt is at [facility]. Confirmed address is for [facility]. Nurse number listed in those comments- called and had to leave a msg for them to call us back. Called and spoke with feeder worker power unit operator at [facility] and she states that pt is now [...] The fall on Thursday, the nurses at [facility] did not respond right away so pt [...] Dr. Pleitez feels something more is needed. [facility]07-15-20[facility] Telephone encounter Note* Telephone Encounter - Ronaldo Pleitez MD - 05/23/2025 8:22 AM EDT Check with intermediate staff for additional insight on falling episodes. [facility]07-14-2025 Telephone encounter Note* Telephone Encounter - [...] review and advise, Mary Ann Pabon RN [facility]07-03-2025 NoteHNO ID: [id number] Author: ESHA JACKSON LPN Service: ? Author Type: LICENSED NURSE Type: Progress Notes Filed: 05/11/2025 10:58 Note Text: Patient here for injection of Aranesp, given SQ in right arm. Patient tolerated well. [facility] History of Present illness Narrative* Esha Jackson LPN - 05/11/2025 9:35 AM EDT Patient here for injection of Aranesp, given SQ in right arm. Patient tolerated well. Esha Jackson LPN documented in this encounterCleveland [id number] Telephone encounter Note * Telephone Encounter - Bebo Vasquez RN - 05/08/2025 6:26 PM EDT Pt called and is notified of providers message and instructions. Pt voices understanding. Bebo Vasquez RN [facility]06-30-2025 Miscellaneous Notes* Telephone Encounter - Bebo [...] that he spoke w/ Dr. Pleitez via Zoomoramahart that swelling has gone down and ok to stop medication. Patient states that the swelling back, but not to the extent of the previous state. Please advise. documented in this encounterZanesville City Hospital06-30-2025 Telephone encounter Note * Telephone Encounter - Ronaldo Pleitez MD - 05/08/2025 5:48 PM EDT The following approved medication requests have been transmitted electronically. Requested Prescriptions Signed Prescriptions Disp Refills metOLazone (ZAROXOLYN) 2.5 mg tablet 6 tablet 0 Sig: Take 1 tablet by mouth three times a week for 6 doses. Authorizing Provider: RONALDO PLEITEZ MD [facility]06-30-2025 Telephone encounter Note* Telephone Encounter - Lupis Clarke MA - 05/08/2025 10:05 AM EDT Note is regarding results from 04/14 on metOLazone (ZAROXOLYN) 2.5 mg tablet (Discontinued) 12 tablet 0 04/06/2025 04/25/2025 Sig: Take 1 tablet by mouth three times a week. Please review Lupis Clarke MA [facility]06-27-2025 Telephone encounter Note* Telephone Encounter - Mary Ann Samayoa - 05/05/2025 3:44 PM EDT Patient spoke with this PSS stating that Dr. Pleitez had prescribed a little pill to help with patient's swelling. Patient stated that he spoke w/ Dr. Pleitez via [employer] that swelling has gone down and ok to stop medication. Patient states that the swelling back, but not to the extent of the previous state. Please advise. [facility]06-20-2025 NoteHNO ID: [id number] Author: ESHA JACKSON LPN Service: ? Author Type: LICENSED NURSE Type: Progress Notes Filed: 04/28/2025 11:53 Note Text: Patient here for injection of Aranesp. Given SQ in left arm. Patient tolerated well. Esha Jackson [facility]06-20-2025 History of Present illness Narrative* Esha Jackson LPN - 04/28/2025 9:49 AM EDT Patient here for injection of Aranesp. Given SQ in left arm. Patient tolerated well. Esha Jackson LPN documented in this encounterZanesville City Hospital06-06-2025 NoteHNO ID: [id number] Author: ESHA JACKSON LPN Service: ? Author Type: LICENSED NURSE Type: Progress Notes Filed: 04/14/2025 11:58 Note Text: Aranesp injection deferred, treatment parameter not met, Hgb 10.3. Esha Jackson [facility]06-06-2025 History of Present illness Narrative* Esha Jackson LPN - 04/14/2025 10:33 AM EDT Aranesp injection deferred, treatment parameter not met, Hgb 10.3. 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 and now Bilateral BBB; Confirmed Blk below His by His Bundle Electrogram Chronic atrial fibrillation ([facility]) 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 ([facility]) 12/01/2022 CVA (cerebral vascular accident) ([facility]) 08/22/2022 Diverticulosis H/O echocardiogram 09/16/2022 EF 68 5 %, mod concentric LVH, mod TR, mild-mod MR with mod MAC History of anemia History of CVA (cerebrovascular accident) 08/22/2022 Pontine infarction, R>L History of stress test 10/12/2024 EF 43%, mild ischemia involving the apex Hx of CABG 07/22/2021 4 vessel CABG with ORNELAS-LAD, SVG-RI, SVG-OM, and SVG-RCA in [place] Hypertension 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 [...] OP SURGERY Right 12/18/[address] [facility] ARTHROPLASTY TOTAL SHOULDER 11/09/2008 right ARTHROSCOPY OF [...] current medications. 2. 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- ICD9: 414.01, ICD10: [...] node dysfunction. He is on Xarelto. 7. 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 documented in this encounterZanesville City Hospital05-30-2025 NoteHNO ID: [id number] Author: IRAM JOHNSON APRN.TELEPHONE ORDER SUPERVISOR Service: ? 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 ([facility]) 12/01/2022 CVA (cerebral vascular accident) ([facility]) 08/22/2022 Diverticulosis H/O echocardiogram 09/16/2022 EF 68?5 %, mod concentric LVH, mod TR, mild-mod MR with mod MAC History of anemia History of CVA (cerebrovascular accident) 08/22/2022 [place]ine infarction, R>L History of stress test 10/12/2024 EF 43%, mild ischemia involving the apex 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 [...] RIGHT OP SURGERY Right 12/18/2020 Dr Arreola [facility] ARTHROPLASTY TOTAL SHOULDER 11/09/2008 right ARTHROSCOPY OF [...] mouth once daily. polyethylene (more content not included)...[facility]05-29-2025 Miscellaneous Notes* Telephone Encounter - Latisha Parks [...] Mary Ann Pabon RN documented in this encounterZanesville City Hospital05-29-2025 Telephone encounter Note * Telephone Encounter - Latisha Parks LPN - 04/06/2025 2:57 PM EDT Called pts daughter and all reviewed. [facility]05-29-2025 Telephone encounter Note* Telephone Encounter - [...] BMP in 2 weeks. Ronaldo Pleitez MD [facility]05-28-2025 Telephone encounter Note* Telephone Encounter - Jessenia Hernández LPN - 04/05/2025 2:48 PM EDT Daughter's concerned about Patient falling, he recently moved from Assisted Living to Independent Living, does not have eyes on him like before. Willing to start the medication, asking for RX to go to [facility]. Jessenia Hernández LPN [facility]05-28-2025 Telephone encounter Note* Telephone Encounter - Ronaldo Pleitez MD - 04/05/2025 1:14 PM EDT Yes to concerns #1 and #2 if we try to treat edema with metolazone. [facility]05-28-2025 Telephone encounter Note* Telephone Encounter - [...] review and advise, Mary Ann Pabon RN [facility]05-23-2025 NoteHNO ID: [id number] Author: ESHA JACKSON LPN Service: ? Author Type: LICENSED NURSE Type: Progress Notes Filed: 03/31/2025 12:01 Note Text: Patient here for injection of Aranesp. Given SQ in right arm. Patient tolerated well. Esha Jackson [facility]05-23-2025 Note [facility]05-20-2025 [facility] History of Present illness Narrative* Ronaldo Pleitez MD - 03/27/2025 3:10 PM EDT This note was created using Minuboriter. Subjective Patient presents with: Right leg Recording using [employer] software for draft documentation of the visit was discussed with the patient/authorized insurance healthcare representative; all questions welcomed and answered. 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 Current Use of Anticoagulant Lymphedema of Both Lower Extremities Osteoarthritis, Generalized History of Anemia Benign Hypertension Diverticulosis Nocturnal Hypoxemia Rbbb Restless Leg Syndrome Mds (Myelodysplastic Syndrome) ([facility]) Myasthenia Gravis ([facility]) Vertebral Artery Occlusion, Left Venous Stasis of Both Lower Extremities 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[facility]) Status Post Ligation of Left Atrial Appendage Pvc's (Premature Ventricular Contractions) History of Stress Test H/O Echocardiogram 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 Ronaldo Pleitez MD documented in this encounterZanesville City [facility]05-09-2025 NoteHNO ID: [id number] Author: ESHA JACKSON LPN Service: ? Author Type: LICENSED NURSE Type: Progress Notes Filed: 03/17/2025 15:48 Note Text: Patient here for injection of Aranesp. Given SQ in left arm. Patient tolerated well. [facility] of Present illness Narrative* Esha Jackson LPN - 03/17/2025 2:11 PM EDT Patient here for injection of Aranesp. Given SQ in left arm. Patient tolerated well. Esha Jackson LPN documented in this encounterZanesville City Hospital05-09-2025 Telephone encounter Note * Telephone Encounter - Baljinder Galloway DO - 03/17/2025 1:17 PM EDT He will continue Aranesp indefinitely. Baljinder Galloway DO [facility]05-09-2025 Miscellaneous Notes* Telephone Encounter - Baljinder [...] that date? Thank you. documented in this encounterZanesville City Hospital05-09-2025 Telephone encounter Note * Telephone Encounter - Sinai Jay - 03/17/2025 12:[address] Galloway, Trying to make room on 7/3 injection schedule. Patient's last order is 6/20. Is this correct, or will this injection continue on past that date? Thank you. [facility] Work Phone: 1(650) 900-375704-25-2025 [facility]-2025 NoteHNO ID: [id number] Author: ESHA JACKSON LPN Service: ? Author Type: LICENSED NURSE Type: Progress Notes Filed: 02/17/2025 10:06 Note Text: Patient here for injection of Aranesp. Given SQ in LEFT arm. Pt tolerated well. Esha Jackson [facility]04-11-2025 History of Present illness Narrative* Esha Jackson LPN - 02/17/2025 9:53 AM EDT Patient here for injection of Aranesp. Given SQ in LEFT arm. Pt tolerated well. Esha Jackson LPN documented in this encounterZanesville City Hospital03-28-2025 NoteHNO ID: [id number] Author: ESHA JACKSON LPN Service: ? Author Type: LICENSED NURSE Type: Progress Notes Filed: 02/03/2025 14:27 Note Text: Patient here for injection of Aranesp. Given SQ in right arm. Patient tolerated well. Esha Jackson [facility]03-28-2025 History of Present illness Narrative* Esha Jackson LPN - 02/03/2025 10:31 AM EDT Patient here for injection of Aranesp. Given SQ in right arm. Patient tolerated well. Esha Jackson LPN documented in this encounterZanesville City Hospital03-25-2025 Instructions* Patient Instructions* Arabella Moreno, PRODUCT DEVELOPMENT MANAGER.TELEPHONE ORDER SUPERVISOR - 01/31/2025 11:38 AM EDT HOME INSTRUCTIONS [...] review all the medicines you take, even omxu-auy-hogursv medicines. As you get older, the way [...] have certain medical conditions. documented in this encounterZanesville City Hospital03-25-2025 [facility]Sal[facility]03-25-2025 History of Present illness Narrative* [...] PCP - General (Internal Medicine) Arabella Moreno, MARTIN.TELEPHONE ORDER SUPERVISOR as World Designer (Internal Medicine) Baljinder Galloway DO (Hematology). Conrad De La Rosa DPM (Podiatry) [facility]. [place] Miranda MD. Laron Arreola [...] management discussed, see patient instructions Arabella Moreno APRN.TELEPHONE ORDER SUPERVISOR Medical Decision Making: Problems: Moderate: 2+ stable chronic illnesses Risk: Low: Low risk from testing/treatment Moderate: Drug management Medical Decision Making Level: 4 - Moderate documented in this encounterZanesville City Hospital03-14-2025 [facility]Sal[facility]03-14-2025 History of Present illness Narrative* [...] noted. Shanice Green LPN documented in this encounterZanesville City Hospital02-28-2025 NoteSalem [facility]02-28-2025 History of Present illness Narrative* Esha Jackson LPN - 01/06/2025 12:29 PM EST Patient here for injection of Retacrit. Given SQ in right arm. Patient tolerated well.For all otherinformation regarding today, see today's OV note with Dr Galloway. Esha Jackson LPN documented in this encounterZanesville City Hospital02-28-2025 NoteSal[facility]02-28-2025 History of Present illness Narrative* [...] (with VAFs): SF3B1 p.H662Q (41.7%) and TET2 p.M1222Ohx*6 (46%). The overall findings are consistent with [...] as an outlier. Normal cytogenetics. Moved from [place] to assisted living at [facility]. Established care here. Drives. Current therapy: 1) Azacitidine. Cycle 10/14/2023. Most recent cycle 05/2023. He was also diagnosed with acute DVT of the internal jugular vein on the right. This occurred despite anticoagulation with rivaroxaban. Port was removed. 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 and now Bilateral BBB; Confirmed Blk below His by His Bundle Electrogram Chronic atrial fibrillation ([facility]) Chronic heart failure with preserved ejection fraction ([facility]) 07/29/2024 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 ([facility]) 12/01/2022 CVA (cerebral vascular accident) ([facility]) 08/22/2022 Diverticulosis H/O echocardiogram 09/16/2022 EF 68 5 %, mod concentric LVH, mod TR, mild-mod MR with mod MAC History of anemia History of stress test 10/12/2024 EF 43%, mild ischemia involving the apex 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 [...] RIGHT OP SURGERY Right 12/18/2020 Dr Arreola [facility] ARTHROPLASTY TOTAL SHOULDER 11/09/2008 right ARTHROSCOPY OF [...] chronic myelomonocytic leukemia treated with erythropoietin (HCC) ([facility]) Assessment: -CMML-MDS subtype; CMML-1. -CPSS-Mol Low risk. [...] necessary. Baljinder Galloway DO documented in this encounterZanesville City Hospital02-21-2025 NoteHNO ID: [id number] Author: ISRAEL MINOR MD Service: ? Author Type: Physician Type: Progress Notes Filed: 01/08/2025 22:00 Note Text: Dual Pacer Remote Check Date: December 30, 2024 Time: 2:51 PM Devices: Implants Ra Lead Biotronik-09/17/2022 - Implanted Heart Model/Cat number: ADAIR [id number] Serial number: [id number] Child Care: emoquo Lot number: LEFT AXILLARY VEIN Size: Right Atrial Pacing Lead Rv Lead Biotronik-09/17/2022 - Implanted Heart Model/Cat number: ADAIR Pena [id number] Serial number: [id number] Child Care: [employer] Lot number: LEFT CEPHALIC VEIN Size: Right Ventricular Pacing Lead Pacemaker Dual Pacer Biotronik-09/17/2022 - Implanted (Left) Chest Wall Model/Cat number: GUY Wood DR-T [id number] Serial number: [id number] Child Care: [employer] Lot number: INITIAL DUAL PACER IMPLANT. Size: [...] and provider appointment. View External Cardiology - Development Advisor Strips [ID [id number]][facility] 12-30-2024 History of Present illness Narrative* Israel Minor MD - 12/30/2024 2:51 PM EST Dual Pacer Remote Check Date: December 30, 2024 Time: 2:51 PM Devices: Implants Ra Lead Biotronik-09/17/2022 - Implanted Heart Model/Cat number: ADAIR Pena [id number] Serial number: [id number] Child Care: [employer] Lot number: LEFT AXILLARY VEIN Size: Right Atrial Pacing Lead Rv Lead Biotronik-09/17/2022 - Implanted Heart Model/Cat number: ADAIR Pena [id number] Serial number: [id number] Child Care: emoquo Lot number: LEFT CEPHALIC VEIN Size: Right Ventricular Pacing Lead Pacemaker Dual Pacer Bimicironik-09/17/2022 - Implanted (Left) Chest Wall Model/Cat number: GUY WRIGHT [id number] Serial number: [id number] Child Care: [employer] Lot number: INITIAL DUAL PACER IMPLANT. Size: [...] and provider appointment. View External Cardiology - Development Advisor Strips [ID [id number]] documented in this encounterZanesville City Hospital02-14-2025 Telephone encounter Note * Telephone Encounter - Latisha Parks LPN - 12/23/2024 10:42 AM EST Fax rec'd from [employer] for refills to [facility] rx. Pt last saw pcp 07/29/24. Next appt with ETHICS MANAGER 01/31/25. [facility]02-14-2025 Miscellaneous Notes* Telephone Encounter - Latisha Parks LPN - 12/23/2024 10:42 AM EST Fax rec'd from [facility] for refills to yadile garzon. Pt last saw pcp 07/29/24. Next appt with ETHICS MANAGER 01/31/25. documented in this encounterZanesville City Hospital02-14-2025 NoteHNO ID: [id number] Author: ESHA JACKSON LPN Service: ? Author Type: LICENSED NURSE Type: Progress Notes Filed: 12/23/2024 10:17 Note Text: Patient here for injection of Aranesp. Given SQ in left arm. Patient tolerated well. Esha Jackson [facility]02-14-2025 History of Present illness Narrative* Esha Jackson LPN - 12/23/2024 10:02 AM EST Patient here for injection of Aranesp. Given SQ in left arm. Patient tolerated well. Esha Jackson LPN documented in this encounterZanesville City Hospital01-31-2025 [facility]Sal[facility]01-31-2025 History of Present illness Narrative* Shanice [...] noted. Shanice Green LPN documented in this encounterZanesville City Hospital01-16-2025 NoteSalem [facility] Center01-16-2025 History of Present illness Narrative* Esha Jackson LPN - 11/24/2024 2:14 PM EST Patient here for injection of Aranesp. Given SQ in right arm. Patient tolerated well. Patient observed for 15 minutes for signs or symptoms of adverse reaction, none noted. Esha Jackson LPN documented in this encounterZanesville City Hospital01-10-2025 Telephone encounter Note * Telephone Encounter - Sinai Jay - 11/18/2024 12:58 PM EST Scheduled with patient Start email sent [facility] Work Phone: 1(437) 364-724701-10-2025 Miscellaneous Notes* Telephone Encounter - Sinai Jay [...] week. Baljinder Galloway DO documented in this encounterZanesville City Hospital01-08-2025 Telephone encounter Note * Telephone Encounter - Shanice Green LPN - 11/16/2024 5:00 PM EST Injection- Aranesp Spoke with pt. , given information concerning labs ,pt. Voiced understanding. PSS Please schedule for CBC/possible injection every other week. Pt. Would like to start sometime next week. Shanice Green LPN [facility]01-08-2025 Telephone encounter Note* Telephone Encounter - Baljinder Galloway DO - 11/16/2024 4:48 PM EST Can let him know that his blood counts do not demonstrate need for transfusion but he would benefitby starting Aranesp injections as we discussed at most recent office visit. Please schedule for CBC/possible injection every other week. Baljinder Galloway DO [facility]12-06-2024 Telephone encounter Note* Telephone Encounter - Skye Foster LPN - 10/14/2024 2:39 PM EST Phoned dental office and notified Yaritza. She stated that she will call patient and notify him of instructions. Skye Foster LPN [facility]12-06-2024 Miscellaneous Notes* Telephone Encounter - Skye [...] tooth extractions? Please phone Kiya with reply: [phone] documented in this encounterZanesville City Hospital12-06-2024 Telephone encounter Note * Telephone Encounter [...] office prior to resuming Xarelto Arabella Moreno APRN.TELEPHONE ORDER SUPERVISOR [facility]12-06-2024 Telephone encounter Note* Telephone Encounter - [...] tooth extractions? Please phone Kiya with reply: [phone] [facility]12-05-2024 Telephone encounter Note* Telephone Encounter - Shilpa Abraham MA - 10/13/2024 9:59 AM EST Patient was notified of the Providers message in chart and stated that he does not feel any different. He said he will wait until he feels his health declines before he has any testing done. [facility]12-05-2024 Miscellaneous Notes* Telephone Encounter - Shilpa [...] we can schedule it. documented in this encounterZanesville City Hospital12-05-2024 Telephone encounter Note * Telephone Encounter [...] see me so we can schedule it. [facility]12-03-2024 [facility]Sal[facility]12-03-2024 History of Present illness Narrative* [...] (with VAFs): SF3B1 p.H662Q (41.7%) and TET2 p.E5635Ine*6 (46%). The overall findings are consistent with [...] as an outlier. Normal cytogenetics. Moved from [place] to assisted living at [facility]. Established care here. Drives. Current therapy: 1) Azacitidine. Cycle 10/14/2023. Most recent cycle 05/2023. He was also diagnosed with acute DVT of the internal jugular vein on the right. This occurred despite anticoagulation with rivaroxaban. Port was removed. He was admitted to [facility] 05/15 through 05/18 for gram-negative bacteremia attributed to right lower extremity cellulitis. He was initially treated with IV broad-spectrum antibioticsincluding Zosyn and discharged on Levaquin. Blood cultures cleared prior to discharge. Presents for ongoing oncologic management. Interim history: No complaints today. He uses a cane when walking around the intermediate. 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 Vitamin D deficiency 07/11/2020 PAST SURGICAL HISTORY Procedure Laterality Date ANKLE RIGHT OP SURGERY Right 12/18/2020 Dr Arreola [facility] ARTHROPLASTY TOTAL SHOULDER 11/09/2008 right ARTHROSCOPY OF [...] (98.5 F), weight 79.4 kg (175 lb), VyO624%. Well-appearing and in no acute distress. EYES: [...] necessary. Baljinder Galloway DO documented in this encounterKathryn Ville [address]-03-2024 Nurse Note* Shanice Green LPN - 10/11/2024 10:12 AM EST Est. Pt. 1 month F/U discuss recent lab results. Shanice Green LPN [facility]12-03-2024 Nurse Note* Shanice Green LPN - 10/11/2024 10:12 AM EST Est. Pt. 1 month F/U discuss recent lab results. Shanice Green LPN documented in this encounterZanesville City Hospital12-02-2024 Telephone encounter Note * Telephone Encounter - Latisha Parks LPN - 10/10/2024 4:47 PM EST Pt's daughter notified. [facility]12-02-2024 Miscellaneous Notes* Telephone Encounter - Latisha [...] patient when provider sends this urgent RX [phone] * Telephone Encounter - Tara Trujillo MA - 10/10/2024 9:39 AM EST 2 week supply pended to be sent to [facility]. Tara Trujillo MA * Telephone Encounter - Natalie Bernardo - 10/10/2024 8:12 AM EST Patient's daughter is calling Ronaldo Pleitez MD today to request short term medication requestfor rivaroxaban (XARELTO) 20 mg tablet. Daughter states that medication is to be sent mail order, but the medication will not get there on time. DaughterLiza is asking to have the prescription sent to [facility]. Patient has been identified by name and birthdate. Duration of symptoms: N/A If any issues please return call to Liza [phone] Was an appointment scheduled: No Closing statement: Results or non-symptom based questions: Thank you for calling [facility], your call will be returned within the next business day. Natalie Bernardo documented in this encounterZanesville City Hospital12-02-2024 Telephone encounter Note * Telephone Encounter [...] pharmacy and notify patient. Ronaldo Pleitez MD [facility]12-02-2024 Telephone encounter Note* Telephone Encounter - [...] send today. Please call patient once submitted. [facility]12-02-2024 Telephone encounter Note* Telephone Encounter - Ruth Vasquez - 10/10/2024 11:00 AM EST Please advise patient when provider sends this urgent RX [phone] [facility]12-02-2024 Telephone encounter Note* Telephone Encounter - Tara Trujillo MA - 10/10/2024 9:39 AM EST 2 week supply pended to be sent to [facility] Tara Trujillo MA [facility]12-02-2024 Telephone encounter Note* Telephone Encounter - Natalie Bernardo - 10/10/2024 8:12 AM EST Patient's daughter is calling Ronaldo Pleitez MD today to request short term medication requestfor rivaroxaban (XARELTO) 20 mg tablet. Daughter states that medication is to be sent mail order, but the medication will not get there on time. Daughter, Liza is asking to have the prescription sent to [facility]. Patient has been identified by name and birthdate. Duration of symptoms: N/A If any issues please return call to Liza [phone] Was an appointment scheduled: No Closing statement: Results or non-symptom based questions: Thank you for calling [facility], your call will be returned within the next business day. Natalie Bernardo [facility]11-25-2024 [facility]Sal[facility]11-25-2024 History of Present illness Narrative* [...] Location Dept Phone 10/11/2024 10:00 AM LAB [facility] Cardona [phone] 10/11/2024 10:30 AM BALJINDER GALLOWAY [phone] Contacted for: Routine Telephonic Outreach Contact made [...] pounds in a week? No Based on respiratory care practitioner, the following disposition is advised: No symptoms or symptoms present, not severe. Routed to: No Action Needed MARCELO Education Provided this Outreach: No Ginna Em RN October 03, 2024 10:57 AM documented in this encounterZanesville City Hospital11-22-2024 Telephone encounter Note * Telephone Encounter - Shilpa Abraham MA - 09/30/2024 8:58 AM EST Spoke with Zaria at [facility]. Patients Stress Test is scheduled for 6:45 am at [facility] on 10/12/24. Left message to call back for instructions. Order was faxed ([phone]) to [facility]. [facility]11-22-2024 Miscellaneous Notes* Telephone Encounter - Shilpa Abraham MA - 09/30/2024 8:58 AM EST Spoke with Zaria at [facility]. Patients Stress Test is scheduled for 6:45 am at [facility] on 10/12/24. Left message to call back for instructions. Order was faxed ([phone]) to [facility]. * Telephone Encounter - Iram Johnson APRN.CNP - 09/30/2024 8:23 AM EST Apparently the patient does not need a peer to peer, the reference number is the approval number for the stress test. It is good from 09-27-2024-12/25/2024. * Telephone Encounter - Shilpa Abraham MA - 09/27/2024 3:59 PM EST Ref #[id number] Patient needs a Peer to Peer for his Stress Test. The number is [phone]. documented in this encounterZanesville City Hospital11-22-2024 Telephone encounter Note * Telephone Encounter - Iram Johnson APRN.CNP - 09/30/2024 8:23 AM EST Apparently the patient does not need a peer to peer, the reference number is the approval number for the stress test. It is good from 09-27-2024-12/25/2024. [facility]11-19-2024 Telephone encounter Note* Telephone Encounter - Shilpa Abraham MA - 09/27/2024 3:59 PM EST Ref #[id number] Patient needs a Peer to Peer for his Stress Test. The number is [phone]. 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 and now Bilateral BBB; Confirmed Blk below His by His Bundle Electrogram Chronic atrial fibrillation (HCC) Chronic heart failure with preserved ejection fraction ([facility]) 07/29/2024 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 Vitamin D deficiency 07/11/2020 PAST SURGICAL HISTORY Procedure Laterality Date ANKLE RIGHT OP SURGERY Right 12/18/2020 Dr Arreola [facility] ARTHROPLASTY TOTAL SHOULDER 11/09/2008 right ARTHROSCOPY OF [...] current medications. 2. 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- ICD9: 414.01, ICD10: [...] as needed. 5. CHB (complete heart block) ([facility]) - ICD9: 426.0, ICD10: I44.2 Chronic, the patient has a dual-chamber pacemaker. Set VVI second to chronic A- fib. Stable. 6. Chronic atrial fibrillation (HCC) - ICD9: 427.31, ICD10: I48.20 Chronic, asymptomatic atrial fibrillation. Heart rate control and anticoagulation strategy. Heart rate controlled by virtue of AV node dysfunction. Patient on Xarelto. 7. [facility]FP current use of anticoagulant - ICD9: V58.61, ICD10: Z79.01 Patient is on Xarelto 20 mg daily. The pt is not complaining of any signs and symptoms of bleeding.The patient was instructed to call with any problems. documented in this encounterZanesville City Hospital11-19-2024 NoteHNO ID: [id number] Author: IRAM JOHNSON APRN.TELEPHONE ORDER SUPERVISOR Service: ? 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; Confirmed Blk below His by His Bundle Electrogram Chronic atrial fibrillation (HCC) Chronic heart failure with preserved ejection fraction (HCC) 07/29/2024 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 Vitamin D deficiency 07/11/2020 PAST SURGICAL HISTORY Procedure Laterality Date ANKLE RIGHT OP SURGERY Right 12/18/2020 Dr Arreola [facility] ARTHROPLASTY TOTAL SHOULDER 11/09/2008 right ARTHROSCOPY OF [...] daily. No current facility-ad (more content not included)...[facility] 09-27-2024 NoteHNO ID: [id number] Author: ISRAEL MINOR MD Service: ? Author Type: Physician Type: Progress Notes Filed: 10/06/2024 17:16 Note Text: Dual Pacer Report In Office Check Date: September 27, 2024 Time: 10:32 AM Devices: Implants Lead Ra Lead Biotronik-09/17/2022 - Implanted Heart Model/Cat number: ADAIR Pena [id number] Serial number: [id number] Child Care: emoquo Lot number: LEFT AXILLARY VEIN Size: Right Atrial Pacing Lead Rv Lead Biotronik-09/17/2022 - Implanted Heart Model/Cat number: ADAIR Pena [id number] Serial number: [id number] Child Care: emoquo Lot number: LEFT CEPHALIC VEIN Size: Right Ventricular Pacing Lead Pacemaker Dual Pacer Biotronik-09/17/2022 - Implanted (Left) Chest Wall Model/Cat number: GUY PETTITAlexis [id number] Serial number: [id number] Child Care: emoquo Lot number: INITIAL DUAL PACER IMPLANT. Size: [...] and provider appointment. View External Cardiology - Development Advisor Strips [ID [id number]][facility] 09-27-2024 History of Present illness Narrative* Israel Minor MD - 09/27/2024 10:31 AM EST Dual Pacer Report In Office Check Date: September 27, 2024 Time: 10:32 AM Devices: Implants Lead Ra Lead Biotronik-09/17/2022 - Implanted Heart Model/Cat number: ADAIR Pena [id number] Serial number: [id number] Child Care: emoquo Lot number: LEFT AXILLARY VEIN Size: Right Atrial Pacing Lead Rv Lead Biotronik-09/17/2022 - Implanted Heart Model/Cat number: ADAIR Pena [id number] Serial number: [id number] Child Care: [employer] Lot number: LEFT CEPHALIC VEIN Size: Right Ventricular Pacing Lead Pacemaker Dual Pacer Biotronik-09/17/2022 - Implanted (Left) Chest Wall Model/Cat number: GUY [id number] Serial number: [id number] Child Care: [employer] Lot number: INITIAL DUAL PACER IMPLANT. Size: [...] and provider appointment. View External Cardiology - Development Advisor Strips [ID [id number]] documented in this encounterCleveland [id number] Telephone encounter Note * Telephone Encounter - Mary Ann Samayoa - 09/15/2024 4:12 PM EST Scheduled as directed. Mary Ann Samayoa [facility]11-07-[facility]24 Miscellaneous Notes* Telephone Encounter - Mary [...] possible transfusion 1 week. documented in this encounterZanesville City Hospital11-07-2024 Telephone encounter Note * Telephone Encounter - Shanice Green LPN - 09/15/2024 2:59 PM EST Spoke with pt. Informed he needed to come in next week for CBC poss tx. PSS please put on lab schedule for CBC poss tx 09/22@ 10 am. Shanice Green LPN [facility]11-07-2024 Telephone encounter Note* Telephone Encounter - Baljinder Galloway DO - 09/15/2024 2:50 PM EST Recheck CBC possible transfusion 1 week. [facility]11-07-20[facility] History of Present illness Narrative* [...] (with VAFs): SF3B1 p.H662Q (41.7%) and TET2 p.F8688Yeh*6 (46%). The overall findings are consistent with [...] as an outlier. Normal cytogenetics. Moved from [place] to [facility] living at [facility]. Established care here. Drives. Current therapy: 1) Azacitidine. Cycle 10/14/2023. Most recent cycle 05/2023. He was also diagnosed with acute DVT of the internal jugular vein on the right. This occurred despite anticoagulation with rivaroxaban. Port was removed. 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 The patient is thymoma negative seronegative for antibodies positive. Asymptomatic since July 2017 when he's been off medication Nocturnal hypoxemia On oxygen at night Osteoarthritis, generalized Pacemaker 09/17/2022 Dual Pacer (BimicironiSLIC games) for High Grade AV Blk below His; [...] RIGHT OP SURGERY Right 12/18/2020 Dr Arreola [facility] ARTHROPLASTY TOTAL SHOULDER 11/09/2008 right ARTHROSCOPY OF [...] up on iron from today. Lauri Cook APRN.TELEPHONE ORDER SUPERVISOR I spent a total of 30 minutes on the date of the service which included preparing to see the patient, [id number] patient care, completing clinical documentation, performing a [...] evaluation of this patient. documented in this encounterZanesville City Hospital10-22-2024 [facility]10-[facility]-2024 History of Present illness Narrative* [...] Location Dept Phone 09/15/2024 11:15 AM LAB [facility] [place] [facility] [phone] 09/15/2024 11:30 AM BALJIDNER GALLOWAY [phone] 09/27/2024 10:30 AM [facility] [address] C[address] J [phone] 09/27/2024 11:00 AM IRAM JOHNSON [facility] Ctr J [phone] Contacted for: Routine Telephonic Outreach Contact made [...] pounds in a week? No Based on respiratory care practitioner, the following disposition is advised: No symptoms or symptoms present, not severe. Routed to: No Action Needed MARCELO Education Provided this Outreach: No Ginna Em RN August 30, 2024 2:00 PM documented in this encounterZanesville City Hospital10-17-2024 Telephone encounter Note * Telephone Encounter - Bebo Vasquez RN - 08/25/2024 12:11 PM EDT Alexandra with [facility] Pt called and is notified of providers message and instructions. She voices understanding. Bebo Vasquez RN [facility]10-17-2024 Miscellaneous Notes* Telephone Encounter - Bebo Vasquez RN - 08/25/2024 12:11 PM EDT Alexandra with [facility] Pt called and is notified of providers message and instructions. She voices understanding. Bebo Vasquez RN * Telephone Encounter - Ronaldo Pleitez MD - 08/25/2024 11:56 AM EDT Warm soaks right upper eye lid 15 minutes 4 times a day x 5 days. * Telephone Encounter - Julieta Reed RN - 08/24/2024 11:13 AM EDT Carina with [facility] calls to report last evening patient was noted to have some swelling and rednessto upper right eye lid approximately 0.3 cm in diameter. Continues today. She reports no drainage, itch, pain, or redness to the sclera, or fever. She says it appears to be a stye. Asking if provider wants anything done. Requests call back at [phone]. Julieta Reed RN documented in this encounterZanesville City Hospital10-17-2024 Telephone encounter Note * Telephone Encounter - Ronaldo Pleitez MD - 08/25/2024 11:56 AM EDT Warm soaks right upper eye lid 15 minutes 4 times a day x 5 days. [facility]10-[facility] Telephone encounter Note* Telephone Encounter - Julieta Reed RN - 08/24/2024 11:13 AM EDT Carina with [facility] calls to report last evening patient was noted to have some swelling and rednessto upper right eye lid approximately 0.3 cm in diameter. Continues today. She reports no drainage, itch, pain, or redness to the sclera, or fever. She says it appears to be a stye. Asking if provider wants anything done. Requests call back at [phone]. Julieta Reed RN [facility]09-24-2024 [facility]09-24-2024 History of Present illness Narrative* [...] if symptoms worsen. At his request, sent Mastodon C message with phone number for billing. Completed CHF goal. Appointments for Next 60 Days Date Time Provider Location Dept Phone 08/22/2024 11:00 AM LAB [facility] [place] [facility] [phone] 09/15/2024 11:15 AM LAB [facility] [place] [facility] [phone] 09/15/2024 11:30 AM JOSIASBALJINDER [facility] [phone] 09/27/2024 10:30 AM [facility] [address] C[address] J [phone] 09/27/2024 11:00 AM IRAM JOHNSON [facility] Ctr J [phone] Contacted for: Routine Telephonic Outreach Contact made [...] pounds in a week? No Based on respiratory care practitioner, the following disposition is advised: No symptoms or symptoms present, not severe. Routed to: No Action Needed MARCELO Education Provided this Outreach: No Ginna Em RN August 02, 2024 11:23 AM documented in this encounterZanesville City Hospital09-20-2024 [facility]Sal[facility]09-20-2024 History of Present illness Narrative* Ronaldo Pleitez MD - 07/29/2024 11:33 AM EDT This note was created using Minuboriter. Subjective Srini Luis is a 88 year old male was here with daughter. He had minor congestion and cough for afew days. He was tested negative for Covid at [facility]. Overall, he felt well. His cardiovascular issues [...] Accident) (Hcc) Chb (Complete Heart Block) (Hcc) Longterm Current Use of Anticoagulant Lymphedema of Both [...] January. Ronaldo Pleitez MD documented in this encounterZanesville City Hospital09-13-2024 Telephone encounter Note * Telephone Encounter - Sinai Jay - 07/22/2024 12:04 PM EDT Lab scheduled [facility] Work Phone: [phone] Miscellaneous Notes* Telephone Encounter - Sinai Jay [...] month. Baljinder Galloway DO documented in this encounterZanesville City Hospital09-13-2024 Telephone encounter Note * Telephone Encounter - Liza Shipman LPN - 07/22/2024 9:03 AM EDT Patient notified. PSS- please schedule a lab appointment for CBC(?TX) 08/22/2024 @ 11:00. Patient is aware of appointment date and time. Liza Shipman LPN [facility]09-13-2024 Telephone encounter Note* Telephone Encounter - Baljinder Galloway DO - 07/22/2024 6:30 AM EDT Hgb down a tiny bit, but essentially stable. Recheck CBC for poss trans in about a month. Baljinder Galloway DO [facility]08-27-[facility] History of Present illness Narrative* Ginna [...] in the food. Last time reached by Supervisor Aircraft Maintenance: 05/11/24 with 3 attempts since then. ADL/falls/goals [...] Location Dept Phone 07/21/2024 10:00 AM LAB [facility] [place] [facility] [phone] 07/29/2024 11:[address] [facility] [phone] Contacted for: Routine Telephonic Outreach Contact made [...] pounds in a week? No Based on respiratory care practitioner, the following disposition is advised: No symptoms or symptoms present, not severe. Routed to: No Action Needed MARCELO Education Provided this Outreach: No Ginna Em RN July 05, 2024 2:10 PM documented in this encounterZanesville City Hospital08-26-2024 History of Present illness Narrative* Ginna Em RN - 07/04/2024 3:52 PM EDT CDM Telephonic Outreach Provider Action/FYI CHF Assisted living staff assist with meals, medications, wts, and BPs Left VM. Last time reached by Supervisor Aircraft Maintenance: 06/08/24 with 3 attempts since then. ADL/falls/goals assessments due: 10/07/24 Last time SDH for transportation/food insecurity completed: 12/03/23 Recent admit/ED visit since last CDM call?: NA Goals:Review CHF zone sheet at next call Appointments for Next 60 Days Date Time Provider Location Dept Phone 07/21/2024 10:00 AM LAB [facility] [place] [facility] [phone] 07/29/2024 11:00 AM RONALDO PLEITEZ [facility] [phone] Contacted for: Routine Telephonic Outreach Contact made with patient: No, left message. Ginna Em RN July 04, 2024 3:56 PM documented in this encounterZanesville City Hospital08-09-2024 History of Present illness Narrative* Israel Minor MD - 06/17/2024 11:46 AM EDT Dual Pacer Remote Check Date: June 17, 2024 Time: 11:46 AM Devices: Implants Lead Ra Lead Biotronik-09/17/2022 - Implanted Heart Model/Cat number: ADAIR [id number] Serial number: [id number] Child Care: [employer] Lot number: LEFT AXILLARY VEIN Size: Right Atrial Pacing Lead Rv Lead Biotronik-09/17/2022 - Implanted Heart Model/Cat number: ADAIR Pena [id number] Serial number: [id number] Child Care: [employer] Lot number: LEFT CEPHALIC VEIN Size: Right Ventricular Pacing Lead Pacemaker Dual Pacer Biotronik-09/17/2022 - Implanted (Left) Chest Wall Model/Cat number: EDORA [id number] Serial number: [id number] Child Care: [employer] Lot number: INITIAL DUAL PACER IMPLANT. Size: [...] View External Cardiology - Programme Strips [ID [id number]] documented in this encounterZanesville City Hospital08-08-2024 History of Present illness Narrative* Baljinder [...] (with VAFs): SF3B1 p.H662Q (41.7%) and TET2 p.X7199Onr*6 (46%). The overall findings are consistent with [...] as an outlier. Normal cytogenetics. Moved from [place] to [facility] living at [facility]. Established care here. Drives. Current therapy: 1) Azacitidine. Cycle 10/14/2023. Most recent cycle 05/2023. He was also diagnosed with acute DVT of the internal jugular vein on the right. This occurred despite anticoagulation with rivaroxaban. Port was removed. 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 ([facility]) 08/22/2022: CVA (cerebral vascular accident) ([facility]) No date: Diverticulosis No date: History of anemia 07/22/2021: Hx of CABG Comment: 4 vessel CABG with ORNELAS-LAD, SVG-RI, SVG-OM, and SVG-RCA in [place] No date: Hypertension No date: Hypothyroidism No date: [facility] current use of anticoagulant Comment: Xarelto 20 mg daily 03/12/2023: MDS (myelodysplastic syndrome) ([facility]) No date: Mixed hyperlipidemia No date: Myasthenia gravis ([facility]) Comment: Last seen by neurology July 29, [...] 05/05/2023: Thrombosis of right internal jugular vein ([facility]) Comment: Port a Cath removed. 07/11/2020: Venous stasis of both lower extremities 08/25/2022: Vertebral artery occlusion, left 07/11/2020: Vitamin D deficiency PAST SURGICAL HISTORY 12/18/2020: ANKLE RIGHT OP SURGERY; Right Comment: Dr Arreola [facility] 11/09/2008: ARTHROPLASTY TOTAL SHOULDER Comment: right 1999: [...] which included preparing to see the patient, [id number] patient care, completing clinical documentation, obtaining and/or reviewing separately obtained history, performing a medically appropriate examination, counseling and educating the pat ient/family/caregiver, ordering medications, tests, or procedures, communicating with other HCPs (not separately reported), and communicating results to the patient/family/caregiver. Baljinder Galloway DO documented in this encounterZanesville City Hospital08-01-2024 History of Present illness Narrative* Ginna Em, RN - 06/09/2024 8:34 AM EDT CDM Telephonic Outreach Provider Action/FYI 2nd TO attempt CHF Assisted living staff assist with meals, medications, wts, and BPs Left VM. Sent CHF zone sheet in Mastodon C message to be reviewed at next call. Last time reached by Supervisor Aircraft Maintenance: 05/11/24 ADL/falls/goals assessments due: 10/07/24 Last time SDH for transportation/food insecurity completed: 12/03/23 Recent admit/ED visit since last CDM call?: NA Goals: Appointments for Next 60 Days Date Time Provider Location Dept Phone 06/16/2024 8:45 AM LAB [facility] [place] [facility] [phone] 06/16/2024 9:10 AM BALJINDER GALLOWAY [phone] 06/17/2024 1:15 PM REM DEVICE [address] C[address] J [phone] 07/29/2024 11:00 AM RONALDO PLEITEZ [facility] Mar[facility] [phone] Contacted for: Routine Telephonic Outreach Contact made with patient: No, left message. Ginna Em RN June 09, 2024 10:16 AM documented in this encounterZanesville City Hospital07-31-2024 History of Present illness Narrative* Ginna Em RN - 06/08/2024 8:41 AM EDT CDM Telephonic Outreach Provider Action/GILBERTO CHF Assisted living staff assist with meals, medications, wts, and BPs Left VM Last time reached by Supervisor Aircraft Maintenance: 05/11/24 ADL/falls/goals assessments due: 10/07/24 Last time SDH for transportation/food insecurity completed: 12/03/23 Recent admit/ED visit since last CDM call?: NA Goals: Appointments for Next 60 Days Date Time Provider Location Dept Phone 06/16/2024 8:45 AM LAB [facility] [place] [facility] Cardona [phone] 06/16/2024 9:10 AM BALJINDER GALLOWAY [place] [facility] [phone] 06/17/2024 1:15 PM [facility] [address] C[address] J [phone] 07/29/2024 11:[address] [facility] [phone] Contacted for: Routine Telephonic Outreach Contact made with patient: No, left message. Ginna Em RN June 08, 2024 11:34 AM documented in this encounterZanesville City Hospital07-17-2024 History of Present illness Narrative* Ephraim Kraft, GLENYS - 05/25/2024 7:30 AM EDT POPULATION HEALTH NAVIGATION OUTREACH Action/GILBERTO Patient is on the [facility] Adherence list for the following medications: ATORVASTATIN 20MG TAB Dispensed: 01/22/2024 12:00 AM Unit strength: 20 Unit form: tablet Days supply: 90 Quantity: 90 tablet [facility], [facility] [place], [place] [address] - [address] [facility] [phone] Next dispense due date: 04/21/24 Outcome: Refills available on current prescription. Called [facility] and spoke with nurse Luu. Patient is taking the Atorvastatin daily. He was on 40 mg daily before it was changed to 20mg daily so they were giving him 1/2 tablet of the 40 mg tablets until the medication ran out. The patient currently has a one month supply remaining. Bell [facility] day supply ordered. [...] 25, 2024 7:31 AM documented in this encounterZanesville City Hospital07-03-2024 History of Present illness Narrative* Ginna [...] at this time. Last time reached by Supervisor Aircraft Maintenance: 04/12/24 ADL/falls/goals assessments due: 10/07/24 Last time SDH for transportation/food insecurity completed: 12/03/23 Recent admit/ED visit since last CDM call?: NA Appointments for Next 60 Days Date Time Provider Location Dept Phone 06/16/2024 8:45 AM LAB [facility] [place] [facility] [phone] 06/16/2024 9:10 AM BALJINDER GALLOWAY [phone] 06/17/2024 1:15 PM [facility] [address] C[address] J [phone] Contacted for: Routine Telephonic Outreach Contact made [...] daily weight at home? No Based on respiratory care practitioner, the following disposition is advised: No symptoms or symptoms present, not severe. Routed to: No Action Needed MARCELO Education Provided this Outreach: No Ginna mE RN May 11, 2024 3:06 PM documented in this encounterZanesville City Hospital07-02-2024 History of Present illness Narrative* Ginna Em RN - 05/10/2024 7:41 AM EDT CDM Telephonic Outreach Provider Action/FYI CHF Assisted living staff assist with meals, medications, wts, and BPs Left VM Last time reached by Supervisor Aircraft Maintenance: 04/12/24 ADL/falls/goals assessments due: 10/07/24 Last time SDH for transportation/food insecurity completed: 12/03/23 Recent admit/ED visit since last CDM call?: NA Appointments for Next 60 Days Date Time Provider Location Dept Phone 06/16/2024 8:45 AM LAB [facility] [place] [facility] [phone] 06/16/2024 9:10 AM BALJINDER GALLOWAY [phone] 06/17/2024 1:15 PM REM DEVICE [address] J [phone] Contacted for: Routine Telephonic Outreach Contact made with patient: No, left message. Ginna Em RN May 10, 2024 10:42 AM documented in this encounterZanesville City Hospital06-04-2024 History of Present illness Narrative* Ginna Em RN - 04/12/2024 8:21 AM EDT CDM Telephonic Outreach Provider Action/FYI CHF Assisted living staff assist with meals, medications, wts, and BPs Spoke with the patient who reports that he is feeling well and has no needs at this time. Last time reached by Supervisor Aircraft Maintenance: 03/15/24 ADL/falls/goals assessments due: 10/07/24 Last time [...] pounds in a week? No Based on respiratory care practitioner, the following disposition is advised: No symptoms or symptoms present, not severe. Routed to: No Action Needed MARCELO Education Provided this Outreach: No Ginna Em RN April 12, 2024 10:51 AM documented in this encounterZanesville City Hospital05-09-2024 History of Present illness Narrative* Baljinder [...] (with VAFs): SF3B1 p.H662Q (41.7%) and TET2 p.F5765Nqi*6 (46%). The overall findings are consistent with a 2021 [facility] and 5th edition WHO diagnosis of [...] as an outlier. Normal cytogenetics. Moved from [place] to assisted living at [facility]. Established care here. Drives. Current therapy: 1) Azacitidine. Cycle 10/14/2023. Most recent cycle 05/2023. He was also diagnosed with acute DVT of the internal jugular vein on the right. This occurred despite anticoagulation with rivaroxaban. Port was removed. 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 Vitamin D deficiency 07/11/2020 PAST SURGICAL HISTORY Procedure Laterality Date ANKLE RIGHT OP SURGERY Right 12/18/[address] [facility] ARTHROPLASTY TOTAL SHOULDER 11/09/2008 right ARTHROSCOPY OF [...] which included preparing to see the patient, [id number] patient care, completing clinical documentation, obtaining and/or reviewing separately obtained history, performing a medically appropriate examination, counseling and educating the pat ient/family/caregiver, communicating with other HCPs (not separately reported), and communicating results to the patient/family/caregiver. Baljinder Galloway DO documented in this encounterZanesville City Hospital05-07-2024 History of Present illness Narrative* Ginna Em, RN - 03/15/2024 8:14 AM EDT CDM Telephonic Outreach Provider Action/FYI 2nd TO attempt CHF Assisted living staff assist with meals, medications, wts, and BPs Spoke with patient who reports that he is feeling well and has no needs or concerns at this time. Last time reached by Supervisor Aircraft Maintenance: 02/15/24 ADL/falls/goals assessments due: 10/07/24 Last time SDH for transportation/food insecurity completed: 12/03/23 Recent admit/ED visit since last CDM call?: NA Appointments for Next 60 Days Date Time Provider Location Dept Phone 03/17/2024 11:15 AM LAB [facility] [place] Cardona [phone] 03/17/2024 11:50 AM BALJINDER GALLOWAY [phone] Contacted for: Routine Telephonic Outreach Contact made [...] daily weight at home? No Based on respiratory care practitioner, the following disposition is advised: No symptoms or symptoms present, not severe. Routed to: No Action Needed MARCELO Education Provided this Outreach: No Ginna Em RN March 15, 2024 11:13 AM documented in this encounterZanesville City Hospital05-06-2024 History of Present illness Narrative* Ginna Em RN - 03/14/2024 8:38 AM EDT CDM Telephonic Outreach Provider Action/FYI CHF Assisted living staff assist with meals, medications, wts, and BPs Left VM Last time reached by Supervisor Aircraft Maintenance: 02/15/24 ADL/falls/goals assessments due: 10/07/24 Last time SDH for transportation/food insecurity completed: 12/03/23 Recent admit/ED visit since last CDM call?: NA Appointments for Next 60 Days Date Time Provider Location Dept Phone 03/17/2024 11:15 AM LAB [facility] [place] Cardona [phone] 03/17/2024 11:50 AM BALJINDER GALLOWAY Coron[place] Cardona [phone] Contacted for: Routine Telephonic Outreach Contact made with patient: No, left message. 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 07/11/2020 Benign hypertension 08/14/2021 CAD (coronary artery disease) Cellulitis of right leg 05/14/2023 with sepsis, bacteremia CHB (complete heart block) ([facility]) 09/17/2022 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 and now Bilateral BBB; Confirmed Blk below His by His Bundle Electrogram Chronic atrial fibrillation ([facility]) 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 Vitamin D deficiency 07/11/2020 PAST SURGICAL HISTORY Procedure Laterality Date ANKLE RIGHT OP SURGERY Right 12/18/2020 Dr Arreola [facility] ARTHROPLASTY TOTAL SHOULDER 11/09/2008 right ARTHROSCOPY OF [...] current medications. 2. 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- ICD9: 414.01, ICD10: [...] dysfunction. The patient is on Xarelto. 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 documented in this encounterZanesville City Hospital04-22-2024 History of Present illness Narrative* Israel Minor MD - 02/29/2024 2:00 PM EDT Dual Pacer Report In Office Check Date: February 29, 2024 Time: 11:20 AM Devices: Implants Lead Ra Lead Biotronik-09/17/2022 - Implanted Heart Model/Cat number: ADAIR Pena [id number] Serial number: [id number] Child Care: emoquo Lot number: LEFT AXILLARY VEIN Size: Right Atrial Pacing Lead Rv Lead Biotronik-09/17/2022 - Implanted Heart Model/Cat number: ADAIR Pena [id number] Serial number: [id number] Child Care: [employer] Lot number: LEFT CEPHALIC VEIN Size: Right Ventricular Pacing Lead Pacemaker Dual Pacer Biotronik-09/17/2022 - Implanted (Left) Chest Wall Model/Cat number: GUY Wood ADRIANA [id number] Serial number: [id number] Child Care: [employer] Lot number: INITIAL DUAL PACER IMPLANT. Size: [...] and provider appointment. View External Cardiology - Development Advisor Strips [ID [id number]] documented in this encounterZanesville City Hospital04-13-2024 Miscellaneous Notes* Telephone Encounter - Samara Baker RN - 02/20/2024 11:59 AM EDT Called and spoke with Alexandra and notified of Dr. Pleitez's information, recommendations and orders.Order for TSH and this phone encounter with new med orders faxed to Alexandra at [facility] [phone]. * Telephone Encounter - Ronaldo Pleitez MD - 02/20/2024 11:35 AM EDT I sent new prescription to [facility]. Routine, no marinelli needed. Have patient come for repeat TSH in 3 months. * Telephone Encounter - Samara Baker RN - 02/20/2024 10:59 AM EDT Pt returned call and notified to change dosage of Synthroid. Pt states he lives at [facility] and that we need to notify them of med change. Called and spoke with nurse Alexandra and notified of medication Synthroid dosage change. Pt uses a mail order service [facility] where prescription was sent. That will probably [...] print order and fax to Alexandra at [phone] and she willforward [facility] to [facility] to get filled to take now. Please call Alexandra back at [facility] with provider's response. [phone] * Telephone Encounter - Yenny Gibson LPN [...] to 100 mcg daily. documented in this encounterZanesville City Hospital04-08-2024 History of Present illness Narrative* Ginna Em RN - 02/15/2024 8:48 AM EDT CDM Telephonic Outreach Provider Vinnie/GILBERTO CHF Assisted living staff assist with meals, medications, wts, and BPs Spoke with patient who reports that he is feeling well and has no needs at this time. Appointments for Next 60 Days Date Time Provider Location Dept Phone 02/18/2024 11:15 AM LAB [facility] [place] Marv[place]acquelyn Cardona [phone] 02/29/2024 2:00 PM [facility] [address] [facility] [phone] 02/29/2024 2:20 PM IRAM JOHNSON [facility] C[facility] [phone] 03/17/2024 11:15 AM LAB [facility] [place] Marvajacquelyn Cardona [phone] 03/17/2024 11:50 AM BALJINDER GALLOWAY [phone] Contacted for: Routine Telephonic Outreach Contact made [...] No assisted living staff check Based on respiratory care practitioner, the following disposition is advised: No symptoms or symptoms present, not severe. Routed to: No Action Needed MARCELO Education Provided this Outreach: No Ginna Em RN February 15, 2024 10:55 AM documented in this encounterZanesville City Hospital03-15-2024 Instructions* Patient Instructions* Ronaldo Pleitez MD - 01/22/2024 11:50 AM EDT SEE LASIX DOSE CHANGE. documented in this encounterZanesville City Hospital03-15-2024 History of Present illness Narrative* Ronaldo Pleitez MD - 01/22/2024 11:38 AM EDT This note was created using iPling. Subjective Srini Luis is a 88 year [...] Accident) ([facility]) Chb (Complete Heart Block) ([facility]) Brush Maker Current Use of Anticoagulant Mds (Myelodysplastic Syndrome) [...] (Hematology). Conrad De La Rosa DPM (Podiatry) [facility]. [place] Miranda MD. Medical/Family history [...] provided - Vaccines reviewed. documented in [place] encounterMitchell [place] [id number] History of Present illness Narrative* Ginna Em RN - 01/01/2024 9:04 AM EST CDM Telephonic Outreach Provider Vinnie/GILBERTO CHF Assisted living staff assist with meals, medications, wts, and BPs Left Appointments for Next 60 Days Date Time Provider Location Dept Phone 01/21/2024 11:15 AM LAB [facility] [place] Card[place] [phone] 01/22/2024 11:00 AM PLEITEZ RONALDO Ambriz [facility] MAR[place] [phone] 02/09/2024 1:00 PM [facility] [address] C[address] J [phone] 02/09/2024 1:40 PM IRAM JOHNSON Robyn [facility] Ctr J [phone] 02/18/2024 11:15 AM LAB [facility] WS [place] Card[place] [phone] Contacted for: Routine Telephonic Outreach Contact made with patient: No, left message. Ginna Em RN January 01, 2024 2:06 PM documented in this encounterZanesville City Hospital02-15-2024 History of Present illness Narrative* Baljinder aGlloway DO - 12/24/2023 11:26 AM EST Diagnosis: [...] (with VAFs): SF3B1 p.H662Q (41.7%) and TET2 p.[id number]*6 (46%). The overall findings are consistent with [...] as an outlier. Normal cytogenetics. Moved from [place] to [facility] living at [facility]. Established care here. Drives. Current therapy: 1) Azacitidine. Cycle 10/14/2023. Most recent cycle 05/2023. He was also diagnosed with acute DVT of the internal jugular vein on the right. This occurred despite anticoagulation with rivaroxaban. Port was removed. 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 PAST SURGICAL HISTORY Procedure Laterality Date ANKLE RIGHT OP SURGERY Right 12/18/2020 Dr Arreola [facility] ARTHROPLASTY TOTAL SHOULDER 11/09/2008 right ARTHROSCOPY OF [...] which included preparing to see the patient, [id number] patient care, completing clinical documentation, obtaining and/or reviewing separately obtained history, performing a medically appropriate examination, counseling and educating the pat ient/family/caregiver, ordering medications, tests, or procedures, communicating with other HCPs (not separately reported), and communicating results to the patient/family/caregiver. Baljinder Galloway DO documented in this encounterZanesville City Hospital02-15-2024 Miscellaneous Notes* Telephone Encounter - Yenny Gibson LPN - 12/24/2023 10:23 AM EST Spoke with daughter and message below given. Also contacted [place] with results. [place] askedto have a copy faxed to [phone]. Done. Yenny Gibson LPN * Telephone Encounter - Yenny Gibson LPN - 12/24/2023 10:22 AM EST ----- Message from Ronaldo Pleitez MD sent at 12/24/2023 9:29 AM EST ----- Xray right elbow with no acute bone abnormality. documented in this encounterZanesville City Hospital02-14-2024 History of Present illness Narrative* Jory [...] PATIENT PRESENTS WITH AN IMPLANTABLE OR ATTACHED CHAIN LINK FENCE INSTALLER: No RADIOLOGY DEPARTMENT: General X-ray: Exam(s) Completed: Upper Extremity X- Ray(s): Elbow, right PERIPHERAL IV DATA: Not applicable SIGNED BY: RT Shirley(R) December 23, 2023 12:38 PM documented in this encounterZanesville City Hospital02-14-2024 History of Present illness Narrative* Ronaldo Pleitez MD - 12/23/2023 11:41 AM EST Images from the original note were not included. This note was created using Minuboriter. Subjective Patient presents with: Right arm pain [...] Accident) ([facility]) Chb (Complete Heart Block) ([facility]) Longterm Current Use of Anticoagulant Mds (Myelodysplastic Syndrome) ([facility]) Myasthenia Gravis ([facility]) Lymphedema of Both Lower Extremities Chronic Heart Failure With Preserved Ejection Fraction ([facility]) Vertebral Artery Occlusion, Left Thrombosis of Right [...] days. Ronaldo Pleitez MD documented in this encounterZanesville City Hospital02-12-2024 Miscellaneous Notes* Telephone Encounter - Liza Shipman LPN - 12/21/2023 4:12 PM EST Medication list updated. Liza Shipman LPN * Telephone Encounter - Baljinder Galloway DO - 12/21/2023 3:49 PM EST I checked in his history of medications. Looks like he reported to the [place] at the time of OV he was [...] medication question she wanted to discuss. States intermediate didn't have a medication she thought he was on listed in their records. documented in this encounterZanesville City Hospital02-09-2024 Miscellaneous Notes* Telephone Encounter - Robyn Hollis RN - 12/18/2023 1:49 PM EST Daughter reports pt changed insurance at the beginning of the year. [facility] P[facility]. Patient has been identified by name [...] you. Robyn Hollis RN. documented in this encounterZanesville City Hospital11-29-2023 History of Present illness Narrative* Ginna [...] Location Dept Phone 10/29/2023 10:30 AM LAB [facility] [place] [phone] 11/06/2023 1:50 PM [facility] [address] J [phone] 11/26/2023 10:30 AM LAB [facility] [place] Card[place] [phone] Contacted for: Routine Telephonic Outreach Contact made [...] pounds in a week? No Based on respiratory care practitioner, the following disposition is advised: No symptoms or symptoms present, not severe. Routed to: No Action Needed MARCELO Education Provided this Outreach: No Ginna Em RN October 07, 2023 11:12 AM documented in this encounterZanesville City Hospital11-22-2023 History of Present illness Narrative* Baljinder [...] (with VAFs): SF3B1 p.H662Q (41.7%) and TET2 p.A8919Hre*6 (46%). The overall findings are consistent with [...] as an outlier. Normal cytogenetics. Moved from [place] to assisted living at [facility]. Established care here. Drives. Current therapy: 1) Azacitidine. Cycle 10/14/2023. Most recent cycle 05/2023. He was also diagnosed with acute DVT of the internal jugular vein on the right. This occurred despite anticoagulation with rivaroxaban. Port was removed. He was admitted to [facility] 05/15 through 05/18 for gram-negative bacteremia attributed to right lower extremity cellulitis. He was initially treated with IV broad-spectrum antibioticsincluding Zosyn and discharged on Levaquin. Blood cultures cleared prior to discharge. Presents for ongoing oncologic management. Interim history: No complaints today. No acute illnesses since last seen. [place] is serving meals in room due to a case of Covid--Dining laureano closed temporarily closed. No dyspnea with walking. Uses cane. Drives. No unusual bleeding. Enjoys walking but limited by lumbar spinal stenosis. Constipation can be an issue. Eats a lot of prunes. Using Miralax prn. 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 PAST SURGICAL HISTORY Procedure Laterality Date ANKLE RIGHT OP SURGERY Right 12/18/2020 Dr Arreola [facility] ARTHROPLASTY TOTAL SHOULDER 11/09/2008 right ARTHROSCOPY OF [...] which included preparing to see the patient, [id number] patient care, completing clinical documentation, obtaining and/or reviewing separately obtained history, performing a medically appropriate examination, counseling and educating the pat ient/family/caregiver, ordering medications, tests, or procedures, communicating with other HCPs (not separately reported), and communicating results to the patient/family/caregiver. Baljinder Galloway DO documented in this encounterZanesville City Hospital10-30-2023 History of Present illness Narrative* Ginna [...] Location Dept Phone 09/30/2023 9:30 AM LAB [facility] [place] Cardona [phone] 09/30/2023 9:50 AM BALJINDER GALLOWAY [phone] Contacted for: Routine Telephonic Outreach Contact made [...] daily weight at home? No Based on respiratory care practitioner, the following disposition is advised: No symptoms or symptoms present, not severe. Routed to: No Action Needed MARCELO Education Provided this Outreach: Flor Em RN September 07, 2023 3:02 PM documented in this encounterZanesville City Hospital09-22-2023 Miscellaneous Notes* Telephone Encounter - Stephany Abraham LPN - 07/31/2023 2:51 PM EDT Patient is agreeable to stopping his metoprolol. I will repor PAINTER SHIPYARD to Iram again in 1 week. * [...] to decrease ventricular pacing. He was 88% PAINTER SHIPYARD now he is 80% PAINTER SHIPYARD. documented in this encounterZanesville City Hospital09-20-2023 History of Present illness Narrative* Ginna Em RN - 07/29/2023 8:01 AM EDT [facility] Telephonic Outreach Provider Vinnie/MARIA ELENAI CHF Spoke [...] Location Dept Phone 08/06/2023 11:45 AM LAB [facility] [place] Card[place] [phone] 08/06/2023 12:10 PM BALJINDER GALLOWAY Mar[place] Cardona [phone] Contacted for: Routine Telephonic Outreach Contact made [...] pounds in a week? No Based on respiratory care practitioner, the following disposition is advised: No symptoms or symptoms present, not severe. Routed to: No Action Needed MARCELO Education Provided this Outreach: No Ginna Em RN July 29, 2023 2:12 PM documented in this encounterZanesville City Hospital09-15-2023 History of Present illness Narrative* Jana, MARTIN Bell.TELEPHONE ORDER SUPERVISOR - 07/24/2023 10:10 AM EDT CC: Patient presents with: Follow Up HPI Srini Luis is a 87 year old male who presents today for above. He was last seen 06/12 to [facility]. Reported lymphedema and oozing from left leg. 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 PAST SURGICAL HISTORY Procedure Laterality Date ANKLE RIGHT OP SURGERY Right 12/18/2020 Dr Arreola [facility] ARTHROPLASTY TOTAL SHOULDER 11/09/2008 right ARTHROSCOPY OF [...] care. 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 and now Bilateral BBB; Confirmed Blk below His by His Bundle Electrogram Chronic atrial fibrillation ([facility]) Chronic heart failure with preserved ejection fraction ([facility]) 06/16/2023 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 [...] RIGHT OP SURGERY Right 12/18/2020 Dr Arreola [facility] ARTHROPLASTY TOTAL SHOULDER 11/09/2008 right ARTHROSCOPY OF [...] current medications. 2. 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- ICD9: 414.01, ICD10: [...] remote pacemaker check in 1 week. 5. MCFP current use of anticoagulant - ICD9: V58.61, [...] a dual-chamber pacemaker. Stable. documented in this encounterZanesville City Hospital09-14-2023 History of Present illness Narrative* Israel Minor MD - 07/23/2023 10:00 AM EDT Dual Pacer Report In Office Check Date: July 23, 2023 Time: 8:34 AM Devices: Implants Lead Ra Lead Biotronik-09/17/2022 - Implanted Heart Model/Cat number: ADAIR S [id number] Serial number: [id number] Child Care: emoquo Lot number: LEFT AXILLARY VEIN Size: Right Atrial Pacing Lead Rv Lead Biotronik-09/17/2022 - Implanted Heart Model/Cat number: ADAIR S 60 [id number] Serial number: [id number] Child Care: [employer] Lot number: LEFT CEPHALIC VEIN Size: Right Ventricular Pacing Lead Pacemaker Dual Pacer Biotronik-09/17/2022 - Implanted (Left) Chest Wall Model/Cat number: GUY [id number] Serial number: [id number] Child Care: [employer] Lot number: INITIAL DUAL PACER IMPLANT. [...] 160 Additional Device Information -VS percent: 13% -PAINTER SHIPYARD percent: 81% AP-VS percent: 0% AP-PAINTER SHIPYARD percent: 4% Atrial: Threshold: Chronic AFIB Programmed [...] and provider appointment. 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 with INR goal of 2.0-3.0 09/15/2022 Nocturnal hypoxemia 08/29/20 Overview: On oxygen at night PVC's (premature ventricular contractions) 06/16/2023 RBBB 06/16/2023 documented as of this encounter (statuses as of 01/22/2024) [facility] History of Past illness Narrative* Problem [...] July 2017 when he's been off medication 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 with INR [...] , severe LCS L2-3 Osteoarthritis, generalized 06/16/2023 MCFP current use of ant icoagulants with INR goal of 2.0-3.0 09/15/2022 Nocturnal hypoxemia 08/29/20 22 Overview: On oxygen at night PVC's (premature ventricular contractions) 06/16/2023 RBBB 06/16/2023 documented as of this encounter (statuses as of 02/15/2024) [facility] History of Past illness Narrative* Problem [...] July 2017 when he's been off medication MCFP current use of ant icoagulants with INR [...] , severe LCS L2-3 Osteoarthritis, generalized 06/16/2023 MCFP current use of ant icoagulants with INR goal of 2.0-3.0 09/15/2022 Nocturnal hypoxemia 08/29/20 22 Overview: On oxygen at night PVC's (premature ventricular contractions) 06/16/2023 RBBB 06/16/2023 documented as of this encounter (statuses as of 02/20/2024) [facility]-24-[facility] History of Present illness Narrative* Ginna Em, RN - 07/02/2023 8:02 AM EDT CDM Telephonic Outreach Provider Action/FYI 2nd TO attempt Left VM. CHF Appointments for Next 60 Days Date Time Provider Location Dept Phone 07/09/2023 1:30 PM LAB [facility] WSTR [place] [phone] 07/23/2023 10:00 AM DEVICE CLINIC [facility] DARON [facility] [phone] 07/23/2023 10:40 AM IRAM JOHNSON [facility] [phone] 07/23/2023 1:30 PM LAB [facility] [place] [place] [phone] 07/24/2023 10:20 AM JANAARABELLA [facility] [place] [phone] 08/06/2023 11:45 AM LAB [facility] [place] [place] [phone] 08/06/2023 12:10 PM BALJINDER GALLOWAY [place] [phone] Contacted for: Routine Telephonic Outreach Contact made with patient: No, left message. Ginna Em RN July 02, 2023 2:35 PM documented in this encounterZanesville City Hospital08-04-2023 Instructions* Patient Instructions* Ronaldo Pleitez MD - 06/12/2023 11:22 AM EDT See Hand written orders. documented in this encounterZanesville City Hospital08-04-2023 History of Present illness Narrative* Ronaldo Pleitez MD - 06/12/2023 10:34 AM EDT This note was created using Minuboriter. Subjective Patient presents with: Establish Care: From Israel Pruitt DO. Srini Luis is a 87 year old male seen with his daughter and POA. He just moved to [facility] from [place]. 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 [...] Dr Matt Flannery. PAF (paroxysmal atrial fibrillation) ([facility]) 2020 Post CABG atrial fibrillation Primary localized [...] RIGHT OP SURGERY Right 12/18/2020 Dr Arreola [facility] ARTHROPLASTY TOTAL SHOULDER 11/09/2008 right ARTHROSCOPY OF [...] hematology oncology. 4. 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- ICD9: 414.01, ICD10: I25.10 Stable. 5. 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 Follow up with hematology oncology. 6. History of bacteremia - ICD9: V12.09, ICD10: Z87.898 Resolved. Ronaldo Pleitez MD documented in this encounterZanesville City Hospital07-27-2023 History of Present illness Narrative* Ginna Em RN - 06/04/2023 8:22 AM EDT [facility] Telephonic Outreach Provider Vinnie/FYJason Spoke with patient [...] and low salt intake. He lives in [facility] where he reports he receives meals, medication administration,and nursing assessment of BPs and wts. No transportation or food insecurity needs found from asking SDOH questions. His daughter has been assisting to ensure that he has transportation to app. CHF listed on PCP's 05/21/23 note. Appointments for Next 60 Days Date Time Provider Location Dept Phone 06/11/2023 1:30 PM [facility] [place] [phone] 06/12/2023 10:00 AM RONALDO PLEITEZ [facility] [place] [phone] 06/25/2023 1:30 PM LAB [facility] MATT [place] [phone] 07/09/2023 1:30 PM LAB [facility] [place] [phone] 07/23/2023 10:00 AM DEVICE CLINIC [address] Ctr J [phone] 07/23/2023 10:40 AM IRAM JOHNSON [facility] [phone] 07/23/2023 1:30 PM LAB [facility] [place] [phone] Contacted for: Routine Telephonic Outreach Contact made [...] a week? Nursing staff check Based on respiratory care practitioner, the following disposition is advised: No symptoms or symptoms present, not severe. Routed to: No Action Needed MARCELO Education Provided this Outreach: No Ginna Em RN June 04, 2023 2:52 PM documented in this encounterZanesville City Hospital07-21-2023 History of Present illness Narrative* Christa [...] 29, 2023 4:14 PM documented in this encounterZanesville City Hospital07-18-2023 Miscellaneous Notes* Telephone Encounter - Yadira Walsh LPN - 05/26/2023 3:51 PM EDT Received a fax from [facility] stating readmit orders with medication changes Medication list updated Yadira Walsh LPN documented in this encounterZanesville City Hospital07-17-2023 Miscellaneous Notes* Telephone Encounter - Israel [...] advise. Erich Carrillo MA documented in this encounterZanesville City Hospital07-17-2023 Miscellaneous Notes* Telephone Encounter - Regina Lazo LPN - 05/25/2023 8:04 AM EDT Images from the original note were not included. Shorty Faith MD You; [facility] General Surgery Pool 2 days ago Spoke [...] there. Patient is currently getting infusion [facility] and nurse is concerned for Dehiscence of surgical site and infection. Please advise and contact Liza at [phone]. Regina Lazo LPN documented in this encounterZanesville City Hospital07-13-2023 Instructions* Patient Instructions* Israel Pruitt DO - 05/21/2023 12:31 PM EDT 1. Patient is advised to increase Lasix to 40 mg tablet taking 1-1/2 tablet for a total of 60 mg q.morning 2. Patient is advised within the next 2 weeks to recheck renal status and electrolytes with a BMP at [facility] #3 patient has follow-up with primary care that he be transitioning to at [place] [facility] on June 12 #4 patient will continue close observation and management of hematological issues including 1 unit of packed red blood cell transfusion tomorrow with [facility] hematology with Dr. Galloway #5 no other changes in current medications including completing Levaquin as written by infectious disease upon discharge from [facility] 6. Please call with any significant [...] with any open wounds documented in this encounterZanesville City Hospital07-13-2023 History of Present illness Narrative* Israel Pruitt DO - 05/21/2023 11:52 AM EDT Patient presents with: Hospital F/U HPI: Srini Luis is a 87 year old male who presents to the office today for hospital follow-up with us. Patient was admitted to [facility] under the hospitalist service on May 24 was discharged on May 18 back to his independent setting in [place]. 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 [...] Dr Matt Flannery. PAF (paroxysmal atrial fibrillation) ([facility]) 2020 Post CABG atrial fibrillation PVC's (premature ventricular contractions) RBBB Status post ligation of left atrial appendage 07/2021 At time of CABG PAST SURGICAL HISTORY Procedure Laterality Date ANKLE RIGHT OP SURGERY Right 12/18/2020 Dr Arreola [facility] ARTHROPLASTY TOTAL SHOULDER 11/09/2008 right ARTHROSCOPY OF [...] Appendage Osteoarthritis, Generalized Paf (Paroxysmal Atrial Fibrillation) ([facility]) Pvc's (Premature Ventricular Contractions) Benign Hypertension Rbbb Acute Stroke Due to Ischemia ([facility]) Vertebral Artery Occlusion, 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 Acute Ischemic Stroke ([facility]) Malnutrition of Moderate Degree ([facility]) Weakness 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 ([facility]) Nocturnal Hypoxemia Cva (Cerebral Vascular Accident) ([facility]) Chb (Complete Heart Block) ([facility]) Longterm Current Use of Anticoagulant Mds (Myelodysplastic Syndrome) ([facility]) Myasthenia Gravis ([facility]) ALLERGIES Allergen Reactions Simvastatin [...] k/uL 0.64 (L) 0.38 (L) 0.60 (L) Vance% % 4.5 3.8 4.2 Abs Vance <0.87 k/uL 0.27 0.30 0.14 Eosin% % [...] is slated to see primary care in [facility] on [place] - BASIC METABOLIC PNL 4. [...] under the direction of hematology oncology at [place] I spent a total of 35 minutes on the date of the service which included preparing to see the patient, [id number] patient care, completing clinical documentation, obtaining and/or [...] date. Yenny Browning MA documented in this encounterZanesville City Hospital07-11-2023 Miscellaneous Notes* Telephone Encounter - Liza [...] Daughter called stating patient was discharged from [facility] yesterday. She is asking if there is a way to cut back some of the lab appointments that are scheduled for patient. She states he had been jabbed quite a bit at the hospital and she is afraid he would not want to come to lab appt this . Please call Liza and advise. documented in this encounterZanesville City Hospital07-10-2023 Discharge summary Author Marshal Rebolledo [facility] May 18, 2023 3:00pm Note Date/Time May 18, 2023 9:45 am [facility] Medical Records Department [address] [place] [address] Discharge Summary 05/18/23 0942 MR#: [id number] Acct: [id number] Name: SRINI LUIS Rep #:[id number] : 1935 87 From: Marshal Nuñez PCP: Hamzah Pruitt Status:ADM IN Location: [facility] [id number] Providers Date of Admission: 05/14/23 Date [...] 80.3 H, Lymph % (Auto) 11.3 L, Vance % (Auto) 4.2, Eos % (Auto) 1.9, [...] Assisted Living Charges/Coding Visit Charges Inpatient E&M: 77638 Disch Hosp >30min 05/18/23 1500 <Electronically signed by Marshal Rebolledo MD> Cosigner Signature (if applicable): CC: Dr. Marshal Rebolledo MD; Hamzah Pruitt~ Signed [facility] Work Phone: 1(309) 965-459207-10-2023 Discharge summary Author Marshal Rebolledo [facility] May 18, 2023 2:58pm Note Date/Time May 18, 2023 9:36 am [facility] Medical Records Department [address] [place] [address] Instructions for Home/Discharge Instructions 05/18/23812 MR#: [id number] Acct: [id number] Name: SRINI LUIS Rep #:[id number] : [...] Order can be placed): Assisted Living 05/18/23 9330<Electronically signed by Marshal Rebolledo MD>Marshal Rebolledo MD CC: Dr. Mary Prather MD; Dr. 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 Medical Records Department [address] [place] [address] [place] [address] Pharmacokinetic/Renal -Consult 05/16/23 1016 MR#: [id number] Acct: [id number] Name: SRINI LUIS Rep #:[id number] : 1935 87 From: Nunu Stevens PCP: Hamzah Pruitt Status:ADM IN Y Location: [place] [address] Consult Antibiotic Management Pharmacy has been consulted [...] Date Marshal Rebolledo MD CC: ~ Signed [facility] Work Phone: [phone]) 195-338207-08-2023 Progress note Author Marshal Rebolledo [facility] May 16, 2023 9:35am Note Date/Time May 16, 2023 9:20a [facility] Medical Records Department [address] [place] [address] Progress Note - Hospitalist 05/16/23908 MR#: [id number] Acct: [id number] Name: SRINI LUIS Rep #:[id number] : 1935 87 From: Marshal Nuñez PCP: Hamzah Pruitt Status:ADM IN Location: [place] [address] 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 Medical Records Department [address] [place] [address] Pharmacokinetic/Renal -Consult 05/14/232155 MR#: [id number] Acct: [id number] Name: SRINI LUIS Rep #:[id number] : 1935 87 From: Ned Vinson PCP: Hamzah Pruitt Status:ADM IN Location: [place] [address] Consult Antibiotic Management Pharmacy has been consulted [...] Date Mary Prather MD CC: ~ Signed [facility] Work Phone: [phone]) 921-463207-07-2023 Consult note Author Mary Prather [facility] May 15, 2023 7:41pm Note Date/Time May 15, 2023 7:38a m [facility] Medical Records Department [address] [facility] [place] [address] Pharmacokinetic/Renal -Consult 05/15/23737 MR#: [id number] Acct: [id number] Name: SRINI LUIS Rep #:[id number] : 1935 87 From: Sammie Dean PCP: Hamzah Pruitt Status:ADM IN Location: [place] [address] Consult Antibiotic Management Pharmacy has been consulted [...] Date Mary Prather MD CC: ~ Signed [facility] Work Phone: [phone]) 880-182907-07-2023 Progress note Author Mary Prather [facility] May 15, 2023 4:16pm Note Date/Time May 15, 2023 8:37a m [facility] Medical Records Department [address] [place] [address] Progress Note - Hospitalist 05/15/23 0834 MR#: [id number] Acct: [id number] Name: SRINI LUIS Rep #:[id number] : 1935 87 From: Mary Prather MD PCP: Hamzah Pruitt Status:ADM IN Location: [place] [id number] 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) Atherosclerotic heart disease of twin hills coronary artery without angina pectoris (05/14/23) Atrioventricular [...] (Auto) 89.7 H, Lymph% (Auto) 5.6 L, Vance % (Auto) 2.7, Eos % (Auto) 0.0, [...] (Auto) 89.8 H, Lymph% (Auto) 6.2 L, Vance % (Auto) 1.8, Eos % (Auto) 0.2, Baso % (Auto) 0.6, AbsoluteNeuts (auto) 7.5, Absolute Lymphs (auto) 0.52 L, Nucleated RBC % 0.4, Platelet Estimate ADEQUATE, Polychromasia 1+, Macrocytosis 1+, PT 18.2 H, INR 1.5, Nvdlch754, Potassium 4.1, Chloride 102, Carbon Dioxide 34.0 [...] 13:59 EDT Reading Location ID and State: [address] [place] [address] , Service support , Rhythm Strip Rhythm [...] documentation, 37Minutes Charges/Coding Visit Charges Inpatient E&M: 10848 Subs Hosp L2 05/15/23 1616 <Electronically signed by Mary Prather MD> Cosigner Signature (if applicable): CC: ~ Signed [facility] Work Phone: 1([phone]) 432-287507-07-2023 Discharge summary Author Pedro Diaz [facility] May 14, 2023 10:33pm Note Date/Time May 14, 2023 12:37 pm [facility] Medical Records Department [address] [place] [address] Emergency Department Summary 05/14/23 MR#: [id number] Acct: [id number] Name: SRINI LUIS Rep #:[id number] : 1935 87 From: Pedro Diaz MD PCP: Hamzah Pruitt Status:ADM IN Location: [place] [address] HPI History of Present Illness Chief Complaint: Fever Informant: patient and family Narrative Narrative: Patient has a history of CMML, is following with Dr. Galloway at [facility] oncology, and has been getting chemotherapy injections. [...] clotted off according to a family member. [facility] Medical History (Updated 05/14/23 @ 16:07 by [...] preliminarily before any of the other testing, field technician told me it was negative for [...] 89.7 H Lymph % (Auto) 5.6 L Vance % (Auto) 2.7 Eos % (Auto) 0.0 [...] Hypoxemia, Sepsis Disposition Disposition: Acute Care Hospital [facility] What to do if you have Problems For any increased pain, shortness of breath, bleeding, nausea or vomiting, chestpain, or any unexpected problems, contact your Primary Care Provider. Call [facility] ([phone]) or report to the closest Emergency Room. Call 911 if necessary. 05/14/232232 <Electronically signed by Pedro Diaz MD> Cosigner Signature (if applicable): CC: Hamzah Pruitt ~ Signed [facility] Work Phone: 1(295) 133-592507-06-2023 History and physical note Author Mary Prather [facility] May 14, 2023 5:26pm Note Date/Time May 14, 2023 4:54p m [facility] Medical Records Department [address] [place] [address] H&P Exam - Hospitalist 05/14/23 1647 MR#: [id number] Acct: [id number] Name: SRINI LUIS Rep #:[id number] : 1935 87 From: Mary Prather MD PCP: Hamzah Pruitt Status:ADM IN Location: [place] [id number]- [id number] HPI - General General Date of Admission: 05/14/23 Date of Service: 05/14/23 Chief Complaint: Chills, RLE pain HPI Narrative Mr. Luis is an 87-year-old male with history of CVA, CMML on chemotherapy [facility] 05/14/2023 due to weakness and rigors. [...] coughing. No other complaints at this time [facility] Medical History (Updated 05/14/23 @ 17:22 [...] (Auto) 89.7 H, Lymph% (Auto) 5.6 L, Vance % (Auto) 2.7, Eos % (Auto) 0.0, [...] 13:59 EDT Reading Location ID and State: [address] [place] [address] , Service support , Assessment & Plan [...] fluid overload Charges/Coding Visit Charges Inpatient E&M: 06949 Init Hosp L3 05/14/23 1726 <Electronically signed by Mary Prather MD> Cosigner Signature (if applicable): CC: Dr. Mary Prather MD; Hamzah Pruitt~ Signed [facility] Work Phone: 1(752) 650-535707-06-2023 Miscellaneous Notes* Telephone Encounter - Ileana Sosa RN - 05/14/2023 9:[address] Galloway patient CMML On vidaza Patient here today for CBC/poss transfusion. Patient has new c/o constant right lower extremity pain from the knee to his ankle. Spoke to Dr. Gates who advised an US of his RLE. Ileana Sosa RN documented in this encounterZanesville City Hospital07-05-2023 Miscellaneous Notes* Telephone Encounter - Magali Payne RN - 05/13/2023 2:15 PM EDT Office visit note from Srini' visit with Dr. Faith on 05/11/2023 faxed to [facility] at [phone]. Fax confirmation sheet received. Magali Payne RN documented in this encounterZanesville City Hospital07-05-2023 History of Present illness Narrative* Sammie Moeller RN - 05/13/2023 2:14 PM EDT patient had right arm port removed on 05/11/23, dressing over site had serous sanguinous drainage on it, dressing was removed site slightly ecchymotic sutures intact and no further drainage noted. Areacleaned around wound and clean 2x2 gauze and opsite applied, per request of patient. documented in this encounterZanesville City Hospital07-03-2023 Nurse Note* Magali Payne RN - [...] 09/27/2015 Magali Payne RN documented in this encounterZanesville City Hospital07-03-2023 Instructions* Patient Instructions* Magali Payne RN - 05/11/2023 4:58 PM EDT The following instructions are important for you related to your office visit today with the [facility] General Surgeons. Instructions After Port [...] you should contact our office immediately @ [phone] and ask to be transferred to the General Surgery department. documented in this encounterZanesville City Hospital07-03-2023 History of Present illness Narrative* Magali [...] UP VISIT - PORTACATH REMOVAL NAME: Srini [facility] NO.: [id number] DATE OF SERVICE: 05/11/2023 : 1935 REFERRING [...] removal. Shorty Faith MD documented in this encounterZanesville City Hospital06-30-2023 History of Present illness Narrative* Lena Colon RN - 05/08/2023 2:30 PM EDT Patient agrees to get lab work done on Thursday at 3pm then come to [facility] center for treatment. Scheduled to go to surgical office at 3:45 for port removal. Lena Colon RN documented in this encounterZanesville City Hospital06-29-2023 Miscellaneous Notes* Telephone Encounter - Esha Jackson LPN - 05/07/2023 4:09 PM EDT [facility] nurse notified of Dr Arita office contacting them for apt regarding port removal. Instructedthem to hold Xarelto after tomorrows dose. Nurse voices understanding. Esha Jackson LPN * Telephone Encounter - Baljinder Galloway DO - 05/07/2023 4:00 PM EDT I spoke with Dr. Faith. He is going to have his office staff contact [facility] to arrange office visit on Thursday to remove the port. Please ask the nursing staff at [facility] to hold his Xarelto after tomorrow's dose. Baljinder Galloway DO * Telephone Encounter - Israel Pruitt DO - 05/07/2023 9:[address] Galloway, Discussed the case of Mr. Luis today with interventional radiologist Dr. Manjeet Butler at [facility] interventional radiology this morning. We reviewed the [...] know and/or contact Dr. Manjeet Butler at [phone] to discuss further. As you would expect [...] directlyto prevent any confusion. Nurse # at [facility] -. [phone] fax [phone]. This has been added to demographics. documented in this encounterZanesville City Hospital06-28-2023 Miscellaneous Notes* Telephone Encounter - Esha Jackson LPN - 05/06/2023 5:09 PM EDT Per second phone, seems pt is going to be seen at [facility] tomorrow at 4pm. We were unaware of this as it can be difficult to see all of [facility] appointments. Esha Jackson LPN * Telephone Encounter [...] patient, notify him with the plan from [facility] and also need to notify the nurses and [facility] so they may also be aware of plan. * Telephone Encounter - Cami Plasencia - 05/06/2023 9:20 AM EDT Called [facility] [phone] for Manjeet Butler Spoke with someone in [...] PM EDT Pt had port placed at [facility] in [place]. Our surgical dept states they can see him for a consult and removal. Please schedule pt for gen surg for port removal due to DVT. Esha Jackson LPN * Telephone Encounter - Esha Jackson LPN - 05/05/2023 4:09 PM EDT Yes he states he is. Spoke with nurse at [facility] and she verified as well. Esha [...] review. Esha Jackson LPN documented in this encounterZanesville City Hospital06-28-2023 Miscellaneous Notes* Telephone Encounter - Lakesha Pabon MA - 05/06/2023 3:47 PM EDT Nurse called and notified per iram digoxin level looks good. Continue same dose. Nurse agreeable * Telephone Encounter - Iram Johnson APRN.TELEPHONE ORDER SUPERVISOR - 05/06/2023 3:27 PM EDT Digoxin level looks good. Continue same dose. documented in this encounterZanesville City Hospital06-28-2023 History of Present illness Narrative* Israel Pruitt, - 05/06/2023 3:28 PM EDT After review with my VISUAL MERCHANDISER here in the office and reviewing multiple telephone notes it seems the patient is scheduled for port removal at [facility] tomorrow on May 07 . Is this true and all is taken care of for this patient ? Messages have been directed at me this afternoon to manage this patients acute right IJ DVT as a result of the patients indwelling port for chemotherapy Please confirm that all is set for this patient for tomorrow on the at [facility] IR Thanks , Israel Pruitt DO * [...] orders or instructions. Thank you, Ginna Em card hangerSupervisor Aircraft Maintenance HTN Needs SDH but got off the [...] I cannot arrange whatever treatment is necessary. [facility] notes indicate that several caregivers at [facility] are involved, and the patient is waiting [...] 05/06/2023 2:00 PM TREATMENT RM 13 SHAUN [facility] [employer] [phone] 05/07/2023 2:00 PM TREATMENT RM 13 [facility]UN [facility] [place] [phone] 05/08/2023 2:00 PM TREATMENT RM 13 SHAUN [facility] [place] [phone] 05/11/2023 3:30 PM TREATMENT RM 13 SHAUN [facility] [place] [phone] 05/13/2023 2:00 PM TREATMENT RM 13 SHAUN [facility] [place] [phone] 05/14/2023 9:00 AM [facility] [place] [phone] 05/19/2023 2:20 PM GUILLERMINA CUMMINGS [place] [phone] 05/21/2023 9:00 AM LAB [facility] [place] [phone] 05/25/2023 9:00 AM LAB [facility] [place] [phone] 05/28/2023 9:00 AM [facility] [place] [phone] 05/29/2023 2:45 PM [facility] [place] [phone] 05/29/2023 3:10 PM LAVERNE BALJINDER [place] [phone] 06/01/2023 11:00 AM TREATMENT RM 10 SHAUN [facility] [place] [phone] 06/02/2023 1:00 PM TREATMENT RM 13 SHAUN [facility] [place] [phone] 06/03/2023 1:30 PM TREATMENT RM 13 SHAUN [facility] [place] [phone] 06/04/2023 1:30 PM TREATMENT RM 13 SHAUN [facility] [place] [phone] 06/05/2023 1:30 PM TREATMENT RM 13 SHAUN [facility] [place] [phone] 06/08/2023 1:30 PM TREATMENT RM 13 SHAUN [facility] [place] [phone] 06/09/2023 1:30 PM TREATMENT RM 13 SHAUN [facility] [place] [phone] 06/11/2023 9:00 AM LAB [facility] [place] [phone] Contacted for: Routine Telephonic Outreach Contact made with patient: Yes Patient identified by name and date of . Discussed care with patient Are you experiencing any new or worsening symptoms you need to talk about today? No Disease Specific Do you check your blood pressure at home? No Do you have new or worsening shortness of breath with activity? No Based on respiratory care practitioner, the following disposition is advised: No symptoms or symptoms present, not severe. Routed to: No Action Needed MARCELO Education Provided this Outreach: No Ginna Em RN May 06, 2023 12:58 PM documented in this encounterZanesville City Hospital06-28-2023 Miscellaneous Notes* Telephone Encounter - Guillermina [...] pend for signature Patient now lives in [place] . Appreciate us finding a way that the patient gets this immunization in [place]. 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 Hep B Surface Ab Quant >=12.00 mIU/mL <8.00 Low Resulting Agency CCM documented in this encounterZanesville City Hospital06-28-2023 Miscellaneous Notes* Telephone Encounter - Guillermina Cummings APRN.CNP - 05/06/2023 2:06 PM EDT Noted. * Telephone Encounter - Baljinder Galloway DO - 05/06/2023 12:34 PM EDT No.I have not previously ordered it. PCP needs to put the order in. Baljinder Galloway DO * Telephone Encounter - Esha Jackson LPN - 05/06/2023 12:13 PM EDT Guillermina Cummings CNP for Dr Pruitt at [facility] calls to states the pt needs a Hep B booster. Their office is asking since the pt lives in [place] now if he could get his Hep B in [place]. He could bescheduled on the [facility] nurse schedule, but apparently a [place] doctor would need place order. Guillermina is asking if you would be willing the place the order. Please advise. Esha Jackson LPN documented in this encounterZanesville City Hospital06-27-2023 Miscellaneous Notes* Telephone Encounter - Yadira [...] status Thanks, Dr Pruitt documented in this encounterZanesville City Hospital06-27-2023 Miscellaneous Notes* Telephone Encounter - Lakesha Pabon MA - 05/05/2023 2:05 PM EDT Called and spoke with the nurse's station at [facility] ([phone]) And nurse was notified EKG looks ok [...] in chart and letter/order was faxed to [phone]. * Telephone Encounter - Iram Johnson APRN.CNP [...] the medication was started Fax number is [phone] [address]. [place] Can you please help with this documented in this encounterZanesville City Hospital06-26-2023 History of Present illness Narrative* Jyothi Grimes RN - 05/04/2023 2:18 PM EDT Pt educated on coming in on Mondays and per Dr. Galloway's request to check CBC. Pt verbalized understanding. Jyothi Grimes RN documented in this encounterZanesville City Hospital06-23-2023 History of Present illness Narrative* David [...] (with VAFs): SF3B1 p.H662Q (41.7%) and TET2 p.[id number]*6 (46%). The overall findings are consistent with [...] 1.00 - 4.00 k/uL 1.05 0.82 (L) Vance% % 7.4 5.8 Abs Vance <0.87 k/uL 0.38 0.27 Eosin% % 2.1 [...] visit. David Cervantes APRN.MAURICIO documented in this encounterZanesville City Hospital06-13-2023 History of Present illness Narrative* Shirley [...] 21, 2023 4:18 PM documented in this encounterZanesville City Hospital06-12-2023 Instructions* Patient Instructions* Israel Pruitt, - [...] and his son who is here from [place] today. 9. It anytime that the patient is having any significant change in gait stability or worsening symptoms as discussed today in HPI need to know 10. Patient will be seen by ophthalmology for more detailed exam of the patient's visual field. documented in this encounterZanesville City Hospital06-12-2023 History of Present illness Narrative* Israel Pruitt DO - 04/20/2023 2:09 PM EDT Patient presents with: 4 month office visit: Lab review HPI: Sirni Luis is a 87 year old male [...] who is here with us today from [place] who interacts with him by phone often [...] are new bladder control issues Patient's TOOL CHECKER imaging was MRI of the brain August [...] DO (Neurology) Ruby Duff RN as Specialty Java Sybase Developer (Hematology/Oncology) Ginna Em, JESSY as Supervisor Aircraft Maintenance (Unspecified) PAST MEDICAL HISTORY Diagnosis Date CAD [...] reported polyps per patient recollection Hypertension 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 [...] Dr Matt Flannery. PAF (paroxysmal atrial fibrillation) ([facility]) 2020 Post CABG atrial fibrillation PVC's (premature ventricular contractions) RBBB Status post ligation of left atrial appendage 07/2021 At time of CABG PAST SURGICAL HISTORY Procedure Laterality Date ANKLE RIGHT OP SURGERY Right 12/18/2020 Dr Arreola [facility] ARTHROPLASTY TOTAL SHOULDER 11/09/2008 right ARTHROSCOPY OF [...] Appendage Osteoarthritis, Generalized Paf (Paroxysmal Atrial Fibrillation) ([facility]) Pvc's (Premature Ventricular Contractions) Benign Hypertension Rbbb Acute Stroke Due to Ischemia ([facility]) Vertebral Artery Occlusion, 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 Acute Ischemic Stroke ([facility]) Malnutrition of Moderate Degree ([facility]) Weakness 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 ([facility]) Nocturnal Hypoxemia Cva (Cerebral Vascular Accident) ([facility]) Chb (Complete Heart Block) ([facility]) Brush Maker Current Use of Anticoagulant Mds (Myelodysplastic Syndrome) ([facility]) ALLERGIES Allergen Reactions Simvastatin Other: See Comments [...] Lymph 1.00 - 4.00 k/uL 0.82 (L) Vance% % 5.8 Abs Vance <0.87 k/uL 0.27 Eosin% % 0.9 Abs [...] which included preparing to see the patient, [id number] patient care, completing clinical documentation, obtaining and/or reviewing separately obtained history, performing a medically appropriate examination, counseling and educating the pat ient/family/caregiver, ordering medications, tests, or procedures, communicating with other HCPs (not separately reported), independently interpreting results (not separately reported), communicatingresults to the patient/family/caregiver, and care coordination (not separately reported). Israel Pruitt DO documented in this encounterZanesville City Hospital06-08-2023 History of Present illness Narrative* Milagro [...] 2023 Milagro Camacho RN Research Nurse - [place] [phone] documented in this encounterZanesville City Hospital06-06-2023 History of Present illness Narrative* Eveline [...] daily weight at home? No Based on respiratory care practitioner, the following disposition is advised: No symptoms or symptoms present, not severe. Routed to: No Action Needed MARCELO Education Provided this Outreach: No Eveline Dean RN April 14, 2023 3:36 PM documented in this encounterZanesville City Hospital06-06-2023 History of Present illness Narrative* Patricia Fairchild RN - 04/14/2023 10:18 AM EDT ++ documented in this encounterZanesville City Hospital06-02-2023 Miscellaneous Notes* Telephone Encounter - Stephany [...] BID. Note: he is now at [facility]. [phone]. * Telephone Encounter - Iram Johnson APRN.MAURICIO [...] since about mid March. documented in this encounterZanesville City Hospital06-02-2023 Miscellaneous Notes* Telephone Encounter - Stephany Abraham LPN - 04/10/2023 3:58 PM EDT Talked with daughter and explained everything. I am calling the [facility] to give orders after speaking ot Iram. [...] it was reading okay documented in this encounterZanesville City Hospital05-31-2023 Miscellaneous Notes* Telephone Encounter - Ileana [...] questions/concerns. Ileana Sosa RN documented in this encounterZanesville City Hospital05-17-2023 Instructions* Patient Instructions* Israel Pruitt DO [...] not anticipate. #7 the vascular lab at [facility] is aware that I will be receiving a call regarding the patient's report and then the patient will be aware of his report or results today. In the event that there is any evidence of acute deep vein thrombosis will be coordinating care with the patient's hematology case resolution specialist. 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 Xarelto 20 mg 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 Acute Ischemic Stroke ([facility]) Malnutrition of Moderate Degree ([facility]) Weakness 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 ([facility]) Nocturnal Hypoxemia Myasthenia Gravis ([facility]) Cva (Cerebral Vascular Accident) ([facility]) Chb (Complete Heart Block) ([facility]) Longterm Current Use of Anticoagulant Mds (Myelodysplastic Syndrome) ([facility]) ALLERGIES Allergen Reactions Simvastatin Other: See Comments [...] Abs Lymph 1.00 - 4.00 k/uL 1.05 Vance% % 7.4 Abs Vance <0.87 k/uL 0.38 Eosin% % 2.1 Abs [...] which included preparing to see the patient, [id number] patient care, completing clinical documentation, obtaining and/or reviewing separately obtained history, performing a medically appropriate examination, counseling and educating the pat ient/family/caregiver, ordering medications, tests, or procedures, communicating with other HCPs (not separately reported), independently interpreting results (not separately reported), communicatingresults to the patient/family/caregiver, and care coordination (not separately reported). Israel Pruitt DO documented in this encounterZanesville City Hospital05-15-2023 History of Present illness Narrative* Lupis [...] this appointment? No Reason for Outreach [facility] Payer: Payor: [facility] MEDICARE / Plan: [facility] MEDIC[facility] HMO / Product Type: [...] seen in the Emergency Department (ED) Location: [facility] Date: 03/20/23 Reason for ED Visit: foot discolored, pain, swollen ED Intervention: not broken Based on respiratory care practitioner, the following disposition is advised: No symptoms or symptoms present, not severe. 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 with INR [...] Follow-up examination following surgery 10/31/20 03 01/02/2015 [facility] current use of ant icoagulants with INR goal of 2.0-3.0 09/15/2022 Nocturnal hypoxemia 08/29/2022 Overview: On oxygen at night documented as of this encounter (statuses as of 03/23/2023) [facility]05-12-[facility]23 History of Present illness Narrative* Jennifer Wilson APRN.TELEPHONE ORDER SUPERVISOR - 03/20/2023 1:58 PM EDT Virtualist Distance Health Note (CDM/TCM//CC HC/H@[facility] escalations) Srini Luis has consented to this [...] in as Primary Virtualist, Secondary Virtualist, or [facility] Telehealth provider: Primary SIGNATURE: Jennifer Wilson APRN.CNP PATIENT NAME: Srini Luis DATE: March 20, 2023 documented in this encounterZanesville City Hospital05-12-2023 History of Present illness Narrative* Eveline Dean RN - 03/20/2023 12:12 PM EDT [facility] Telephonic Outreach Provider Action/FYI Reports his two [...] to talk about today? Yes Based on respiratory care practitioner, the following disposition is advised: Sent to virtualist. Eveline Dean RN March 20, 2023 12:21 PM * Eveline Dean RN - 03/19/2023 2:42 PM EDT [facility] Telephonic Outreach Provider Action/FYI Contacted for: Routine Telephonic Outreach Contact made with patient: No, left message. 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 Lena Cruz RN * Telephone Encounter - Israel Pruitt DO - 03/18/2023 4:30 PM EDT Please provide the assisted living facility where the patient now [place] with the information that is requested further records. I just recently had a comprehensive visit with the patient so that should be all up-to-date. Thanks , Israel Pruitt DO * Telephone Encounter - Marcie Key LPN - 03/18/2023 4:14 PM EDT Katelynn from [facility] states pt is wanting to move into their assisted living. 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 Patient is moving from [facility] to [place] and would like to transfer care. Patient will continue current care until established here. 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 with INR [...] Follow-up examination following surgery 10/31/20 03 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 with INR goal of 2.0-3.0 09/15/2022 Nocturnal hypoxemia 08/29/2022 Overview: On oxygen at night documented as of this encounter (statuses as of 03/17/2023) [facility] of Past illness Narrative* Problem Noted Date Resolved Date [facility] current use of ant icoagulants with INR [...] Follow-up examination following surgery 10/31/20 03 01/02/2015 [facility] current use of ant icoagulants with INR goal of 2.0-3.0 09/15/2022 Nocturnal hypoxemia 08/29/2022 Overview: On oxygen at night documented as of this encounter (statuses as of 03/16/2023) [facility] of Past illness Narrative* Problem Noted Date 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 with INR [...] Follow-up examination following surgery 10/31/20 03 01/02/2015 [facility] current use of ant icoagulants with INR goal of 2.0-3.0 09/15/2022 Nocturnal hypoxemia 08/29/2022 Overview: On oxygen at night documented as of this encounter (statuses as of 03/13/2023) [facility]05-04-2023 Instructions* Patient Instructions* Israel Pruitt, - [...] oncology at [facility] in [place] to in [place] where the patient is moving to assisted [...] here locally until he can transition to [place] where he will be residing #[phone] please call if there is any difficulty with bowel function as the patient is doing well with twice daily MiraLAX and he will continue that going forward documented in this encounterZ[facility] History of Present illness Narrative* Israel [...] 2021 , though no 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 ([facility]) Nocturnal Hypoxemia Myasthenia Gravis ([facility]) Cva (Cerebral Vascular Accident) ([facility]) Chb (Complete Heart Block) ([facility]) Brush Maker Current Use of Anticoagulant ALLERGIES Allergen Reactions [...] Lymph 1.00 - 4.00 k/uL 0.49 (L) Vance% % 4.7 Abs Vance <0.87 k/uL 0.23 Eosin% % 0.0 Abs [...] not increasing ) Echocardiography Report: Transthoracic Echo [facility] Date of service: 09/16/2022 12:12:43 PM Ordering physician: ISRAEL PRUITT Indication: Shortness of Breath Technologist: Abran Joy [facility] Interpreting physician: Ling Thompson MD PATIENT: Name: [...] right atrial cavity is dilated. MITRAL VALVE [place] mitral valve. There is mild (1+ - [...] deceleration time is 311 msec. TRICUSPID VALVE [place] tricuspid valve. There is mild (1+ - [...] EST ASSESSMENT/PLAN: 1. PAF (paroxysmal atrial fibrillation) ([facility]) - ICD9: 427.31, ICD10: I48.0 (primary diagnosis) Stable HR and on Xarelto , staying on current therapy 2. MDS (myelodysplastic syndrome) ([facility]) - ICD9: 238.75, ICD10: D46.9 Stable , [...] grade II DHD , and BNPT > 18808 , will increase Lasix to total 60 [...] which included preparing to see the patient, [id number] patient care, completing clinical documentation, obtaining and/or reviewing separately obtained history, performing a medically appropriate examination, counseling and educating the pat ient/family/caregiver, ordering medications, tests, or procedures, communicating with other HCPs (not separately reported), independently interpreting results (not separately reported), communicatingresults to the patient/family/caregiver, and care coordination (not separately reported). 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 with INR [...] Follow-up examination following surgery 10/31/20 03 01/02/2015 [facility] current use of ant icoagulants with INR goal of 2.0-3.0 09/15/2022 Nocturnal hypoxemia 08/29/2022 Overview: On oxygen at night documented as of this encounter (statuses as of 03/13/2023) [facility]05-03-2023 [facility]05-03-2023 History of Present illness Narrative* Randa [...] (coronary artery disease) CHB (complete heart block) ([facility]) 09/17/2022 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 and now Bilateral BBB; Confirmed Blk below His by His Bundle Electrogram CVA (cerebral vascular accident) ([facility]) 08/22/2022 Diverticulosis History of anemia Hx of CABG 07/22/2021 4 vessel CABG with ORNELAS-LAD, SVG-RI, SVG-OM, and SVG-RCA in [place] Hx of colonoscopy 09/27/2015 no reported polyps per patient recollection Hypertension Hypothyroidism [facility] current use of anticoagulant Xarelto 20 mg [...] RIGHT OP SURGERY Right 12/18/2020 Dr Arreola [facility] ARTHROPLASTY TOTAL SHOULDER 11/09/2008 right ARTHROSCOPY OF [...] (with VAFs): SF3B1 p.H662Q (41.7%) and TET2 p.Z7221Qfw*6 (46%). 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 with INR goal of 2.0-3.0 09/15/2022 Nocturnal hypoxemia 08/29/2022 Overview: On oxygen at night documented as of this encounter (statuses as of 03/11/2023) [facility] History of Past illness Narrative* Problem Noted Date 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 with INR [...] Follow-up examination following surgery 10/31/20 03 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 with INR goal of 2.0-3.0 09/15/2022 Nocturnal hypoxemia 08/29/2022 Overview: On oxygen at night documented as of this encounter (statuses as of 03/11/2023) [facility] History of Past illness Narrative* Problem Noted Date 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 with INR [...] Follow-up examination following surgery 10/31/20 03 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 with INR goal of 2.0-3.0 09/15/2022 Nocturnal hypoxemia 08/29/2022 Overview: On oxygen at night documented as of this encounter (statuses as of 03/09/2023) [facility] History of Past illness Narrative* Problem Noted Date 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 with INR [...] 010 01/02/2015 Follow-up examination, following unspecified dheeraj dinae 06/11/2009 08/14/2009 ACTINIC DAMAGE///SOLAR SKIN DAMAGE NOS 8 01/02/2015 Dermatitis due to cosmetics 04/07/200812/11 ACTINIC DAMAGE///CHR SOLAR SKIN DAMAGE NOS 04/0701/02/2015 Other seborrheic keratosis 04/07/200801/02 SOLAR LENTIGINES///DYSCHROMIA OTHER 04/07/2008 01/02/2015 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 01/02/2015 Special screening for malignant neoplasms, colon 08/11/2005 01/02/2015 Follow-up examination following surgery 10/31/20 03 01/02/2015 [facility] current use of ant icoagulants with INR goal of 2.0-3.0 09/15/2022 Nocturnal hypoxemia 08/29/2022 Overview: On oxygen at night documented as of this encounter (statuses as of 03/02/2023) [facility] History of Past illness Narrative* Problem Noted Date Resolved Date [facility] current use of ant icoagulants with INR [...] Follow-up examination following surgery 10/31/20 03 01/02/2015 [facility] current use of ant icoagulants with INR goal of 2.0-3.0 09/15/2022 Nocturnal hypoxemia 08/29/2022 Overview: On oxygen at night documented as of this encounter (statuses as of 02/17/2023) [facility] History of Past illness Narrative* Problem Noted Date Resolved Date [facility] current use of ant icoagulants with INR [...] 08/11/2005 01/02/2015 Follow-up examination following surgery 10/31/2001/02/2015 [facility] current use of ant icoagulants with INR goal of 2.0-3.0 09/15/2022 Nocturnal hypoxemia 08/29/2022 Overview: On oxygen at night documented as of this encounter (statuses as of 02/16/2023) [facility] History of Past illness Narrative* Problem Noted Date 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 with INR [...] Follow-up examination following surgery 10/31/20 03 01/02/2015 [facility] current use of ant icoagulants with INR goal of 2.0-3.0 09/15/2022 Nocturnal hypoxemia 08/29/2022 Overview: On oxygen at night documented as of this encounter (statuses as of 02/13/2023) [facility] History of Past illness Narrative* Problem Noted Date Resolved Date [facility] current use of ant icoagulants with INR [...] Follow-up examination following surgery 10/31/20 03 01/02/2015 [facility] current use of ant icoagulants with INR goal of 2.0-3.0 09/15/2022 Nocturnal hypoxemia 08/29/2022 Overview: On oxygen at night documented as of this encounter (statuses as of 02/12/2023) [facility] History of Past illness Narrative* Problem Noted Date 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 with INR [...] Follow-up examination following surgery 10/31/20 03 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 with INR goal of 2.0-3.0 09/15/2022 Nocturnal hypoxemia 08/29/2022 Overview: On oxygen at night documented as of this encounter (statuses as of 02/11/2023) [facility] History of Past illness Narrative* Problem Noted Date 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 with INR [...] Follow-up examination following surgery 10/31/20 03 01/02/2015 [facility] current use of ant icoagulants with INR goal of 2.0-3.0 09/15/2022 Nocturnal hypoxemia 08/29/2022 Overview: On oxygen at night documented as of this encounter (statuses as of 02/10/2023) [facility] History of Past illness Narrative* Problem Noted Date 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 with INR [...] 08/11/2005 01/02/2015 Follow-up examination following surgery 10/31/2001/02/2015 [facility] current use of ant icoagulants with INR goal of 2.0-3.0 09/15/2022 Nocturnal hypoxemia 08/29/2022 Overview: On oxygen at night documented as of this encounter (statuses as of 02/09/2023) [facility]-29[facility]2023 [facility]03-29-2023 History of Present illness Narrative* Randa [...] (coronary artery disease) CHB (complete heart block) ([facility]) 09/17/2022 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 [...] Dr Matt Flannery. PAF (paroxysmal atrial fibrillation) ([facility]) 2020 Post CABG atrial fibrillation PVC's (premature ventricular contractions) RBBB Status post ligation of left atrial appendage 07/2021 At time of CABG PAST SURGICAL HISTORY Procedure Laterality Date ANKLE RIGHT OP SURGERY Right 12/18/2020 Dr Arreola [facility] ARTHROPLASTY TOTAL SHOULDER 11/09/2008 right ARTHROSCOPY OF [...] (with VAFs): SF3B1 p.H662Q (41.7%) and TET2 p.I9374Hab*6 (46%). 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 He has signed up with [facility]. He feels they will come when [...] like to speak with a social work merchandising team lead to help give you support for any [...] you up for automated weekly questionnaires through [employer]. This is an easy way for us [...] my name is Eveline Dean RN your Java Sybase Developer from the [facility] I am calling today for your bi-weekly check in. I am sorry I missed your call. I will reach out to you again tomorrow. (if the third call I will reach out to you again next week) Enter next patient outreach date for the following day using the Track Pt Outreach. End outreach. 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 with INR goal of 2.0-3.0 09/15/2022 Nocturnal hypoxemia 08/29/2022 Overview: On oxygen at night documented as of this encounter (statuses as of 02/02/2023) [facility] History of Past illness Narrative* Problem Noted Date Resolved Date [facility] current use of ant icoagulants with INR [...] Follow-up examination following surgery 10/31/20 03 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 with INR goal of 2.0-3.0 09/15/2022 Nocturnal hypoxemia 08/29/2022 Overview: On oxygen at night documented as of this encounter (statuses as of 01/25/2023) [facility] History of Past illness Narrative* Problem Noted Date Resolved Date [facility] current use of ant icoagulants with INR [...] 08/11/2005 01/02/2015 Follow-up examination following surgery 10/31/20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 with INR goal of 2.0-3.0 09/15/2022 Nocturnal hypoxemia 08/29/2022 Overview: On oxygen at night documented as of this encounter (statuses as of 01/19/2023) [facility] History of Past illness Narrative* Problem Noted Date 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 with INR [...] Follow-up examination following surgery 10/31/20 03 01/02/2015 [facility] current use of ant icoagulants with INR goal of 2.0-3.0 09/15/2022 Nocturnal hypoxemia 08/29/2022 Overview: On oxygen at night documented as of this encounter (statuses as of 01/16/2023) [facility] History of Past illness Narrative* Problem Noted Date 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 with INR [...] Follow-up examination following surgery 10/31/20 03 01/02/2015 [facility] current use of ant icoagulants with INR goal of 2.0-3.0 09/15/2022 Nocturnal hypoxemia 08/29/2022 Overview: On oxygen at night documented as of this encounter (statuses as of 01/15/2023) [facility]-08-2023 [facility]03-08-2023 History of Present illness Narrative* Randa [...] reported polyps per patient recollection Hypertension Hypothyroidism [facility] current use of anticoagulant Xarelto 20 mg [...] RIGHT OP SURGERY Right 12/18/2020 Dr Arreola [facility] ARTHROPLASTY TOTAL SHOULDER 11/09/2008 right ARTHROSCOPY OF [...] Monocytes % 01/12/2023 8.0 % Final Abs Vance 01/12/2023 0.14 <0.87 k/uL Final Eosinophils % [...] 01/08/2023 Component Date Value Ref Range Status Dispensary Clerk 01/08/2023 In process Value:Provider EDMOND your patient SRINI LUIS has been assigned their Marcelo program. The date to complete this order is 02-07-2023 The Marcelo program is: HEART FAILURE: WHAT IT IS The patient access code to view the Marcelo program is: [id number] To view the Marcelo program go to: [email or web address] Radiology: Pathology: Addendum Cytogenetics (see separate report) revealed a normal male karyotype: 46,XY[20]. The myeloid NGS panel (see separate report) identified the following variants (with VAFs): SF3B1 p.H662Q (41.7%) and TET2 p.S2068Dac*6 (46%). The overall findings are consistent with [...] to 8% (140). 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0 09/15/2022 Nocturnal hypoxemia 08/29/2022 Overview: On oxygen at night documented as of this encounter (statuses as of 01/15/2023) [facility] History of Present illness Narrative* Iram Johnson, MARTIN.TELEPHONE ORDER SUPERVISOR - 01/13/2023 11:00 AM EST [facility] CARDIOLOGY Israel Pruitt DO SUBJECTIVE: Srini [...] (coronary artery disease) CHB (complete heart block) ([facility]) 09/17/2022 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 [...] Dr Matt Flannery. PAF (paroxysmal atrial fibrillation) ([facility]) 2020 Post CABG atrial fibrillation PVC's (premature ventricular contractions) RBBB Status post ligation of left atrial appendage 07/2021 At time of CABG PAST SURGICAL HISTORY Procedure Laterality Date ANKLE RIGHT OP SURGERY Right 12/18/2020 Dr Arreola [facility] ARTHROPLASTY TOTAL SHOULDER 11/09/2008 right ARTHROSCOPY OF [...] current medications. 2. 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- ICD9: 414.01, ICD10: I25.10 Four-vessel CABG in 2020. Patient on chronic medication. He is not complaining of chest pain. 3. Mixed hyperlipidemia - ICD9: 272.2, ICD10: E78.2 Patient is on atorvastatin 40 mg daily. Managed by primary care physician. 4. PAF (paroxysmal atrial fibrillation) ([facility]) - ICD9: 427.31, ICD10: I48.0 History of paroxysmal atrial fibrillation. Presently on metoprolol 12.5 mg twice daily. Maintainingsinus rhythm by pacemaker interrogation. We will plan to continue same medications and monitor for recurrent atrial fibrillation. 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 7. CHB (complete heart block) ([facility]) - ICD9: 426.0, ICD10: I44.2 Chronic, the [...] does not get any better. Iram Johnson APRN.TELEPHONE ORDER SUPERVISOR documented in this encounterZanesville City Hospital03-07-2023 History of Present illness Narrative* Israel Minor MD - 01/13/2023 10:38 AM EST Dual Pacer Report In Office Check Date: January 13, 2023 Time: 10:38 AM Devices: Lead Ra Lead Biotronik-09/17/2022 - Implanted Heart Model/Cat number: ADAIR S [id number] Serial number: [id number] Child Care: [employer] Lot number: LEFT AXILLARY VEIN Size: Right Atrial Pacing Lead Rv Lead [employer]otronik-09/17/2022 - Implanted Heart Model/Cat number: ADAIR S 60 [id number] Serial number: [id number] Child Care: [employer] Lot number: LEFT CEPHALIC VEIN Size: Right Ventricular Pacing Lead Pacemaker Dual Pacer [employer]ik-09/17/2022 - Implanted (Left) Chest Wall Model/Cat number: EDORA 8 [id number] Serial number: [id number] Child Care: [employer] Lot number: INITIAL DUAL PACER IMPLANT. Size: [...] 160 Additional Device Information -VS percent: 13% -PAINTER SHIPYARD percent: 83% AP-VS percent: 0% AP-PAINTER SHIPYARD percent: 3% Atrial: Threshold: 0.6 V @ [...] and provider appointment. View External Cardiology - Development Advisor Strips [ID [id number]] documented in this encounterZanesville City Hospital03-07-[facility]23 History of Past illness Narrative* Problem Noted Date Resolved Date [facility] current use of ant icoagulants with INR [...] Follow-up examination following surgery 10/31/20 03 01/02/2015 [facility] current use of ant icoagulants with INR goal of 2.0-3.0 09/15/2022 Nocturnal hypoxemia 08/29/2022 Overview: On oxygen at night documented as of this encounter (statuses as of 01/13/2023) [facility] History of Past illness Narrative* Problem Noted Date 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 with INR [...] Follow-up examination following surgery 10/31/20 03 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 with INR goal of 2.0-3.0 09/15/2022 Nocturnal hypoxemia 08/29/2022 Overview: On oxygen at night documented as of this encounter (statuses as of 01/13/2023) [facility] History of Past illness Narrative* Problem Noted Date 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 States I feel fine Contact Made with Patient: Yes Patient identified by name and . Discussed care with patient Aylin stoddard name is Eveline Dean RN your Java Sy[employer] Developer from [place] Pruitt DO office at the [facility]. 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 with INR goal of 2.0-3.0 09/15/2022 Nocturnal hypoxemia 08/29/2022 Overview: On oxygen at night documented as of this encounter (statuses as of 01/08/2023) [facility] History of Past illness Narrative* Problem Noted Date Resolved Date [facility] current use of ant icoagulants with INR [...] 08/11/2005 01/02/2015 Follow-up examination following surgery 10/31/20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 The patient is thymoma negative seronegative for antibodies positive. Asymptomatic since July 2017 when he's been off medication [facility] current use of ant icoagulants with INR [...] 010 01/02/2015 Follow-up examination, following unspecified dheeraj dinae 06/11/2009 08/14/2009 ACTINIC DAMAGE///SOLAR SKIN DAMAGE NOS 8 01/02/2015 Dermatitis due to cosmetics 04/07/200812/11 ACTINIC DAMAGE///CHR SOLAR SKIN DAMAGE NOS 04/0701/02/2015 Other seborrheic keratosis 04/07/200801/02 SOLAR LENTIGINES///DYSCHROMIA OTHER 04/07/2008 01/02/2015 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 01/02/2015 Special screening for malignant neoplasms, colon 08/11/2005 01/02/2015 Follow-up examination following surgery 10/31/20 03 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 The patient is thymoma negative seronegative for antibodies positive. 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 The patient is thymoma negative seronegative for antibodies positive. 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 The patient is thymoma negative seronegative for antibodies positive. 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 The patient is thymoma negative seronegative for antibodies positive. 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 The patient is thymoma negative seronegative for antibodies positive. Asymptomatic since July 2017 when he's been off medication [facility] current use of ant icoagulants with INR [...] Follow-up examination following surgery 10/31/20 03 01/02/2015 [facility] current use of ant icoagulants with INR goal of 2.0-3.0 09/15/2022 Nocturnal hypoxemia 08/29/2022 Overview: On oxygen at night documented as of this encounter (statuses as of 04/10/2023) [facility] of Past illness Narrative* Problem Noted Date Resolved Date Myasthenia gravis 01/05/2023 03/25/2023 Overview: Last seen by neurology July 29, 2017. The patient is thymoma negative seronegative for antibodies positive. 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 Asymptomatic since July 2017 when he's been off medication [facility] current use of ant icoagulants with INR [...] Follow-up examination following surgery 10/31/20 03 01/02/2015 [facility] current use of ant icoagulants with INR goal of 2.0-3.0 09/15/2022 Nocturnal hypoxemia 08/29/2022 Overview: On oxygen at night documented as of this encounter (statuses as of 04/15/2023) [facility] Narrative* Problem Noted Date Resolved Date Myasthenia gravis 01/05/2023 03/25/2023 Overview: Last seen by neurology July 29, 2017. 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 Asymptomatic since July 2017 when he's been off medication [facility] current use of ant icoagulants with INR [...] Follow-up examination following surgery 10/31/20 03 01/02/2015 [facility] current use of ant icoagulants with INR goal of 2.0-3.0 09/15/2022 Nocturnal hypoxemia 08/29/2022 Overview: On oxygen at night documented as of this encounter (statuses as of 05/06/2023) [facility] of Past illness Narrative* Problem Noted Date Resolved Date Myasthenia gravis 01/05/2023 03/25/2023 Overview: Last seen by neurology July 29, 2017. 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 Asymptomatic since July 2017 when he's been off medication [facility] current use of ant icoagulants with INR [...] Follow-up examination following surgery 10/31/20 03 01/02/2015 [facility] current use of ant icoagulants with INR goal of 2.0-3.0 09/15/2022 Nocturnal hypoxemia 08/29/2022 Overview: On oxygen at night documented as of this encounter (statuses as of 05/12/2023) [facility] of Past illness Narrative* Problem Noted Date Resolved Date Myasthenia gravis 01/05/2023 03/25/2023 Overview: Last seen by neurology July 29, 2017. 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 Asymptomatic since July 2017 when he's been off medication [facility] current use of ant icoagulants with INR [...] 01/02/2015 Follow-up examination following surgery 10/31/2003 01/02/2015 [facility] current use of ant icoagulants with INR goal of 2.0-3.0 09/15/2022 Nocturnal hypoxemia 08/29/20 22 Overview: On oxygen at night documented as of this encounter (statuses as of 05/27/2023) [facility] of Past illness Narrative* Problem Noted Date Diagnosed Date Resolved Date Myasthenia gravis 01/05/2023 03/25/2023 Overview: Last seen by neurology July 29, 2017. 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 Asymptomatic since July 2017 when he's been off medication [facility] current use of ant icoagulants with INR [...] 01/02/2015 Follow-up examination following surgery 10/31/2003 01/02/2015 [facility] current use of ant icoagulants with INR goal of 2.0-3.0 09/15/2022 Nocturnal hypoxemia 08/29/20 Overview: On oxygen at night documented as of this encounter (statuses as of 06/04/2023) [facility] Past illness Narrative* Problem Noted Date Diagnosed Date Resolved Date Nocturnal hypoxemia 01/05/2023 06/12/20 Overview: On oxygen at night Myasthenia gravis 01/05/2023 03/25/2023 Overview: Last seen by neurology July 29, 2017. 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 The patient is thymoma negative seronegative for antibodies positive. Asymptomatic since July 2017 when he's been off medication [facility] current use of ant icoagulants with INR [...] , severe LCS L2-3 Osteoarthritis, generalized 06/16/2023 [facility] current use of ant icoagulants with INR goal of 2.0-3.0 09/15/2022 Nocturnal hypoxemia 08/29/20 22 Overview: On oxygen at night PVC's (premature ventricular contractions) 06/16/2023 RBBB 06/16/2023 documented as of this encounter (statuses as of 09/13/2023) [facility] History of Past illness Narrative* Problem Noted Date Diagnosed Date Resolved Date Nocturnal hypoxemia 01/05/2023 06/12/20 23 Overview: On oxygen at night Myasthenia gravis 01/05/2023 03/25/2023 Overview: Last seen by neurology July 29, 2017. The patient is thymoma negative seronegative for antibodies positive. Asymptomatic since July 2017 when he's been off medication [facility] current use of ant icoagulants with INR [...] , severe LCS L2-3 Osteoarthritis, generalized 06/16/2023 [facility] current use of ant icoagulants with INR goal of 2.0-3.0 09/15/2022 Nocturnal hypoxemia 08/29/20 22 Overview: On oxygen at night PVC's (premature ventricular contractions) 06/16/2023 RBBB 06/16/2023 documented as of this encounter (statuses as of 09/13/2023) [facility] History of Past illness Narrative* Problem Noted Date Diagnosed Date Resolved Date Nocturnal hypoxemia 01/05/2023 06/12/20 23 Overview: On oxygen at night Myasthenia gravis 01/05/2023 03/25/2023 Overview: Last seen by neurology July 29, 2017. The patient is thymoma negative seronegative for antibodies positive. 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 The patient is thymoma negative seronegative for antibodies positive. 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 [...] , severe LCS L2-3 Osteoarthritis, generalized 06/16/2023 [facility] current use of ant icoagulants with INR goal of 2.0-3.0 09/15/2022 Nocturnal hypoxemia 08/29/20 Overview: On oxygen at night PVC's (premature ventricular contractions) 06/16/2023 RBBB 06/16/2023 documented as of this encounter (statuses as of 09/30/2023) [facility] History of Past illness Narrative* Problem Noted Date Diagnosed Date Resolved Date Nocturnal hypoxemia 01/05/2023 06/12/20 Overview: On oxygen at night Myasthenia gravis 01/05/2023 03/25/2023 Overview: Last seen by neurology July 29, 2017. The patient is thymoma negative seronegative for antibodies positive. 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 The patient is thymoma negative seronegative for antibodies positive. 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 The patient is thymoma negative seronegative for antibodies positive. Asymptomatic since July 2017 when he's been off medication [facility] current use of ant icoagulants with INR [...] , severe LCS L2-3 Osteoarthritis, generalized 06/16/2023 [facility] current use of ant icoagulants with INR goal of 2.0-3.0 09/15/2022 Nocturnal hypoxemia 08/29/20 22 Overview: On oxygen at night PVC's (premature ventricular contractions) 06/16/2023 RBBB 06/16/2023 documented as of this encounter (statuses as of 12/18/2023) [facility] History of Past illness Narrative* Problem Noted Date Diagnosed Date Resolved Date Nocturnal hypoxemia 01/05/2023 06/12/20 23 Overview: On oxygen at night Myasthenia gravis 01/05/2023 03/25/2023 Overview: Last seen by neurology July 29, 2017. The patient is thymoma negative seronegative for antibodies positive. 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 The patient is thymoma negative seronegative for antibodies positive. 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 The patient is thymoma negative seronegative for antibodies positive. Asymptomatic since July 2017 when he's been off medication [facility] current use of ant icoagulants with INR [...] , severe LCS L2-3 Osteoarthritis, generalized 06/16/2023 [facility] current use of ant icoagulants with INR goal of 2.0-3.0 09/15/2022 Nocturnal hypoxemia 08/29/20 22 Overview: On oxygen at night PVC's (premature ventricular contractions) 06/16/2023 RBBB 06/16/2023 documented as of this encounter (statuses as of 12/23/2023) [facility] History of Past illness Narrative* Problem Noted Date Diagnosed Date Resolved Date Nocturnal hypoxemia 01/05/2023 06/12/20 23 Overview: On oxygen at night Myasthenia gravis 01/05/2023 03/25/2023 Overview: Last seen by neurology July 29, 2017. The patient is thymoma negative seronegative for antibodies positive. 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 The patient is thymoma negative seronegative for antibodies positive. 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 The patient is thymoma negative seronegative for antibodies positive. 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 with INR goal of 2.0-3.0 09/15/2022 Nocturnal hypoxemia 08/29/20 Overview: On oxygen at night PVC's (premature ventricular contractions) 06/16/2023 RBBB 06/16/2023 documented as of this encounter (statuses as of 01/01/2024) [facility] Miscellaneous Notes* Telephone Encounter - Lena [...] AM EST Name: Srini Luis : 1935 [place] ID: [id number] Diagnosis: CML Primary Insurance Provider: [facility] Med Adv Plan Insurance Phone #: [phone] Policy #: [id number] Effective Date of Coverage: 11-09-22 Deductible: Ind: $ 0 Met: Ind: $ 0 Max OOP: Ind: $ 3500 OOP Met: Ind: $ 75 Pays: After Ded: 80% Pays: After OOP: 100 Co-Insurance: 20% Lifetime Maximum: unlimited Possible Foundations: Benefits verified with Radha A. Ref# [id number]. Patient has 20% coinsurance and $3425 remaining in max OOPif any assistance available. KAITLYNN Staples documented in this encounterZ[facility] NoteHNO ID: [id number] Author: Roxy Sanchez RN Service: ? Author Type: Registered Nurse Type: Progress Notes Filed: 12/15/2022 10:49 AM Note Text: Ok to keep port accessed for vidaza treatment per Dr Rowell.[facility]02-06-2023 History of Present illness Narrative* Roxy Sanchez RN - 12/15/2022 10:37 AM EST Ok to keep port accessed for vidaza treatment per Dr Rowell. documented in this encounterZanes[facility] Instructions* Patient Instructions* Israel Pruitt, - [...] during his next encounter. documented in this encounterZanesville [facility] History of Present illness Narrative* Israel Pruitt DO - 12/11/2022 4:54 PM EST Patient presents with: Recheck: 3 months F/U HPI: Srini Luis is a 86 year old male who presents to the office today for routine OV with us today The patient is engaged to be to a lady that he is known for 3 years and lives in [place] at [place] as well. 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 Acute Ischemic Stroke ([facility]) Malnutrition of Moderate Degree ([facility]) Weakness Generalized Pacemaker Chronic heart failure with preserved ejection fraction ([facility]) [I50.32 (ICD-10-CM)] 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 ([facility]) ALLERGIES Allergen Reactions Simvastatin Other: See Comments [...] Lymph 1.00 - 4.00 k/uL 1.08 1.35 Vance% % 15.3 12.8 Abs Vance <0.87 k/uL 1.06 (H) 0.96 (H) Eosin% [...] 1.00 - 4.00 k/uL 1.18 1.08 1.35 Vance% % 11.6 15.3 12.8 Abs Vance <0.87 k/uL 0.80 1.06 (H) 0.96 (H) [...] which included preparing to see the patient, [id number] patient care, completing clinical documentation, obtaining and/or reviewing separately obtained history, performing a medically appropriate examination, counseling and educating the pat ient/family/caregiver, ordering medications, tests, or procedures, communicating with other HCPs (not separately reported), independently interpreting results (not separately reported), communicatingresults to the patient/family/caregiver, and care coordination (not separately reported). .Israel Pruitt DO documented in this encounterZanesville City Hospital01-27[facility]23 Miscellaneous Notes* Sedation Documentation - Juanita Tineo RN - 12/05/2022 10:40 AM EST R IJ not useable per Dr. Butler. Pt agreeable to right arm. * Sedation Documentation - Juanita Tineo RN - 12/05/2022 10:28 AM EST Port instructions reviewed with patient. Written copy provided. Pt's questions answered. documented in this encounterZanesville City Hospital01-27-[facility]23 Surgical operation note* Operative Report - Manjeet Butler MD - 12/05/2022 10:04 AM EST OPERATIVE/PROCEDURE REPORT LOG ID: [id number] Surgery/Procedure Date: 12/05/2022 Incision/Procedure Start Time: 10:35 AM Incision Close/Procedure End Time: 11:00 AM Surgeon(s)/Proceduralist(s) and Auction Block Clerk(s): Surgeon(s) and Role: * Manjeet Butler MD [...] None Manjeet Butler MD documented in this encounterZanesville City Hospital01-26-2023 NoteHNO ID: [id number] Author: KAITLYNN Staples Service: ? Author Type: Operations Superintendent Type: Progress Notes Filed: 12/04/2022 3:35 PM Note Text: Also submitted referral for [employer] meals to be delivered to his home.[facility]01[facility]26-2023 [facility] History of Present illness Narrative* KAITLYNN Staples - 12/04/2022 3:34 PM EST Also submitted referral for [employer] meals to be delivered to his home. documented in this encounterZanesville City Hospital01-26-[facility]23 History of Present illness Narrative* KAITLYNN Staples - 12/04/2022 3:28 PM EST Images from the original note were not included. RE: Evaluation Operations Superintendent KAITLYNN Staples Resource Counselor (RC) met with new patient to review the Patient Navigation process. RC advised patient their role as the merchandising team lead assisting patients in navigating the system both [...] detail. RC reviewed the role of the Agronomy Teacher and the attempts she would make to [...] No Finances No Insurance No Transporation No direct care staffer No Having enough food No Access to medicine No Treatment decisions No Spiritual or Mormonism Concerns No Sense of meaning or purpose No Changes in efrain or beliefs No , dying or afterlife No Conflict between beliefs and cancer treaments No Relationhip with the sacred No Ritual or dietary needs No Other Concerns none KAITLYNN Staples documented in this encounterZanesville City Hospital01-26-2023 [facility]01[facility]26[facility] History of Present illness Narrative* Skye [...] especially fever. Handouts given and explained from [facility] including all of support services offered. Patient met with social work at visit. Time spent: 50 minutes >50% of the time was spent in counseling and/or coordination of care. Skye Mas APRN.CNP documented in this encounterZanesville City Hospital01-18-2023 [facility]01-18-2023 Miscellaneous Notes* Telephone Encounter - Valentina Bethea - 11/26/2022 11:50 AM EST Patient left the 11/26/22 appointment and said that they will let us know if they want to do treatment or reschedule. documented in this encounterZanesville City Hospital01-18-2023 Instructions* Patient Instructions* Randa Rowell, - [...] in the blood No evidence of a Bent chromosome. This is seen in a similar [...] (CMML) or works in consultation with a public school teacher oncologist who has experience treating CMML patients. [...] when you get home. 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 [...] Dr Matt Flannery. PAF (paroxysmal atrial fibrillation) ([facility]) 2020 Post CABG atrial fibrillation PVC's (premature ventricular contractions) RBBB Status post ligation of left atrial appendage 07/2021 At time of CABG PAST SURGICAL HISTORY Procedure Laterality Date ANKLE RIGHT OP SURGERY Right 12/18/2020 Dr Arreola [facility] ARTHROPLASTY TOTAL SHOULDER 11/09/2008 right ARTHROSCOPY OF [...] 11/05/2022 1.08 1.00 - 4.00 k/uL Final Vance% 11/05/2022 15.3 % Final Abs Vance 11/05/2022 1.06 (A) <0.87 k/uL Final Eosin% [...] (with VAFs): SF3B1 p.H662Q (41.7%) and TET2 p.[id number]*6 (46%). The overall findings are consistent with [...] about his options Randa Rowell DO Hematology/Oncology [facility] During this patient visit I have spent approximately 40 minutes out of 45 in counseling regarding treatment options, medications, and test results and coordinating care. documented in this encounterZanesville City Hospital01-12-2023 Miscellaneous Notes* Telephone Encounter - Yadira Walsh LPN - 11/20/2022 1:52 PM EST Patient phones requesting refills as follows: Pt is requesting that the rx be sent to [facility] (originally given to [facility] pharmacy becauseit was hospital generated) Requested Prescriptions Pending Prescriptions Disp Refills rivaroxaban (XARELTO) 20 mg tablet 90 tablet 3 Sig: Take 1 tablet by mouth daily with dinner. Resume Sep 20 2022 Please review and advise. Yadira Walsh LPN documented in this encounterZanesville City Hospital12-29-2022 Miscellaneous Notes* Telephone Encounter - Christa Paris RN - 11/06/2022 9:17 AM EST Patient called the [facility] with question on sodium in water softener. Call returned, message left. Research states that approximately 35 mg is in an 8 ounce glass. 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 Received: 10/24/2022 02:31 PM INTERVENTIONAL RADIOLOGY Pathologist: [...] To order testing on this specimen for [facility] patients, please place an [facility] order for DNAand RNA Clinical Testing (SQNUCADD). To order testing for patients outside of the [facility] system, please request DNA and RNA for Clinical Testing, order code [id number]. If additional paperwork is required for testing, please send completed forms via secure email to . Flow Cytometry Order Status 10/24/2022 See Results in chart under F case ID Final MYELOID NGS PANEL BONE MARROW 10/24/2022 Myeloid NGS Panel Bone Marrow Laboratory Accession Number: [id number] Result: Please see linked document and/or separate report for full result when available. As reviewed by Laron Jeong MD Final FLT3 ITD HN PANEL BONE MARROW 10/24/2022 Final Value:FLT3 Internal Tandem Duplication (ITD) Mutation Testing Laboratory Accession Number: [id number] FLT3 Internal Tandem Duplication (ITD) mutation: Not [...] developed and its performance characteristics determined by [facility] [place] ([facility]). It has not been cleared or approved by the FDA. [facility] is regulated under CLIA as certified to perform high- complexity testing. This test is used for clinical purposes. It should not be regarded as investigational or for research. Testing and interpretation performed at [facility], [address] [place] [address]. CLIA Number: [id number] As reviewed by Tahmina Duong, PhD, [facility] CLARITY SIGNOUT PATHOLOGIST 10/24/2022 [id number] Final WBC 10/24/2022 6.01 3.70 - 11.00 [...] 10/24/2022 1.06 1.00 - 4.00 k/uL Final Vance% 10/24/2022 11.1 % Final Abs Vance 10/24/2022 0.67 <0.87 k/uL Final Eosin% 10/24/2022 [...] Case Report 10/24/2022 Final Value:Flow Cytometry Case: [id number] Authorizing Provider: Randa Rowell DO Collected: 10/24/2022 12:31 PM Ordering Location: [facility] Received: 10/25/2022 09:22 AM INTERVENTIONAL RADIOLOGY Pathologist: [...] 10/07/2022 1.18 1.00 - 4.00 k/uL Final Vance% 10/07/2022 11.6 % Final Abs Vance 10/07/2022 0.80 <0.87 k/uL Final Eosin% 10/07/2022 [...] are possible options Randa Rowell DO Hematology/Oncology [facility] During this patient visit I have spent approximately 30 minutes out of 35 in counseling regarding test results and coordinating care. documented in this encounterZanesville City Hospital12-28-2022 Instructions* Patient Instructions* Randa Rowell DO [...] combinations of current treatments. documented in this encounterZanesville City Hospital12-16-2022 Surgical operation note* Brief Op Note - Jesus Manuel White MD, MD - 10/24/2022 12:47 PM EST INTERVENTIONAL RADIOLOGY POST PROCEDURE NOTE DATE: 10/24/22 NAME: Srini Luis LOG ID: [id number] Pre-Procedure Diagnosis: Macrocytic anemia. Post Procedure Diagnosis: Same. Dermatology Teacher: Dr. Jesus Manuel White Procedure: CT [...] any questions or concerns. documented in this [facility]12-16-2022 History and physical note * Jesus Manuel [...] TIME: 12:17 PM PAGER: documented in this [facility]12-16-2022 Miscellaneous Notes* Sedation Documentation - Charlette Herrera RN - 10/24/2022 11:53 AM EST Home going instructions reviewed with patient, acknowledges understanding of instruction. documented in this [facility]12-15-2022 Miscellaneous Notes* Telephone Encounter - Israel Pruitt [...] Thanks Israel Pruitt DO documented in this encounterZanesville City Hospital12-15-2022 History of Present illness Narrative* Rosa [...] and that his daughter was in from [place] to take him to the same. She [...] This therapist traveled to Narinder's home in [place] where the drive started and ended. Discussed that he would drive to the grocery store in [place] where he likes to go as one of the farther locations he will drive to. Talked about bahai while that is in [place] but a female friend who lives in his neighborhood also goes there and has been/will continue to provide him a ride to [facility]. 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 KEEP UP THE GREAT WORK!!! Please weigh daily and record. Read your food labels and watch for hidden sodium. Keep your sodium intake between 3330-5011 mg daily. 500-650 mg per meal. Continue to eat small, frequent meals. Try to include a form of protein with every meal. Keep your fluid intake at 48-64 ounces /day. Increase your activity as tolerated. Call the [facility] ([phone]) for AN APPOINTMENT (NO WALK-IN VISITS) if you have changes in symptoms or increase in weight of 3 lbs in one day or 5 lbs in a week. Thank you, Christa Paris RN documented in this encounterZanesville City Hospital12-08-2022 Nurse Note* Christa Paris RN - 10/16/2022 1:59 PM EST [id number] and his daughter came to the [facility] for a follow-up visit. Patient came [...] appetite. Does admit to rare dining out. [id number]-PwheTara Neal CNP in to examine and educate patient. No orders received. [id number] was provided with emphasis on the need to weigh daily, read labels, monitorNa/fluids, monitoring for signs/symptoms, and when to call the [facility] for early intervention. Discussed importance of balancing sodium throughout the day for a goal of 500-650 mg per meal (1491-6448 mg per day) and to limit fluids [...] needed per MAURICIO recommendation. 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 [...] Dr Matt Flannery. PAF (paroxysmal atrial fibrillation) ([facility]) 2020 Post CABG atrial fibrillation PVC's (premature ventricular contractions) RBBB Status post ligation of left atrial appendage 07/2021 At time of CABG PAST SURGICAL HISTORY Procedure Laterality Date ANKLE RIGHT OP SURGERY Right 12/18/2020 Dr Arreola [facility] ARTHROPLASTY TOTAL SHOULDER 11/09/2008 right ARTHROSCOPY OF [...] 10/07/2022 Neut% 68.5 10/07/2022 Lymph% 17.1 10/07/2022 Vance% 11.6 10/07/2022 Eosin% 3.2 09/19/2019 Baso% 1.0 10/07/2022 Abs Neut (ANC) 4.73 10/07/2022 Abs Vance 0.80 10/07/2022 Abs Eosin 0.10 10/07/2022 Abs [...] 10/07/2022 HDL Cholesterol 55 10/07/2022 LDL Chol, [place] 39 10/07/2022 Cholesterol, Total 105 10/07/2022 CARDIAC [...] needed. Tara Neal APRN-MAURICIO documented in this encounterZanesville City Hospital12-01-2022 [facility]12-01-2022 Miscellaneous Notes* Telephone Encounter - Valentina Bethea - 10/09/2022 11:31 AM EST Spoke with Jennifer in IR. 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 [...] Dr Matt Flannery. PAF (paroxysmal atrial fibrillation) ([facility]) 2020 Post CABG atrial fibrillation PVC's (premature ventricular contractions) RBBB Status post ligation of left atrial appendage 07/2021 At time of CABG PAST SURGICAL HISTORY Procedure Laterality Date ANKLE RIGHT OP SURGERY Right 12/18/2020 Dr Arreola [facility] ARTHROPLASTY TOTAL SHOULDER 11/09/2008 right ARTHROSCOPY OF [...] on risk stratification Randa Rowell, DO Hematology/Oncology [facility] Medical Decision Making: Problems: Moderate: 1+ chronic illnesses with change Data: Unique test result(s) reviewed: 3+ Medical Decision Making Level: 4 - Moderate documented in this encounterZanesville City Hospital12-01-2022 Instructions* Patient Instructions* Randa Rowell DO [...] combinations of current treatments. documented in this encounterZanesville City Hospital11-28-2022 History of Present illness Narrative* Rosa [...] about 1 hour away and Liza in [place]. Both of his sons live out of state but areinvolved and supportive. He very much wants to return to driving and is hopeful he will be able to. Functional Limitations: walking in the community;heavy exertion;driving Prior Level of Function: Independent without limitations Home Environment Patient Lives With: Self/Alone (his 06/10/22) Assistance Available: Other: See Comment Comments: lives in independent living part [facility] with emergency assist nearby and one meal [...] Level of Education: High School Preferred Language: [place] Right or Left Handed: Right Employment: Retired Recreation / Current Exercise: does exercise as part of home therapy Hobbies / Interests: bahai, time with family/friends Home Environment Patient Lives With: Self/Alone (his 06/10/22) Assistance Available: Other: See Comment Comments: lives in independent living [facility] with emergency assist nearby and one meal [...] Driving History: 70 years while has [employer] [facility]; last drove the previous day when his son was visiting and supervised him driving around the complex State: [place] License/Permit #: [id number] Expires: 12/17/22 Restrictions: Corrective lenses; still has [...] AROM for L shoulder since pacemaker replacement [employer] Continuous Process: Sufficient Right LE: Sufficient Left LE: Sufficient [...] be helped by hearing aide Visual Scanning/Attention: Lloyd Making Part B (sec): 99 sec 50th percentile norm for age group: 70-79; Part A: 80 seconds, Part B: 196 seconds Giselle Clock Drawing Test: Srini Ditzler correctly included 7/8 criteria for this test. 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 Patient will complete functional mobility task with good safety awareness during completion of functional portion of this assessment/behind the wheel. Planned Interventions, Frequency, and Duration: Current Frequency: 1 visit Duration: 1 visit Total Number of Visits Planned: 1 Patient to be see for Property Site Manager rehab evaluation PLAN FOR NEXT VISIT: completed behind the wheel portion of assessment Patient demonstrates good understanding of plan of care and treatment. The above goals and plan of care were discussed and agreed upon by patient/family. Billing: Total Treatment Time Minutes (timed/untimed) 120 minutes Evaluation - Moderate Complexity (91795) Self Care / Home Management (01979): 1:1 time: 60 minutes (4 units: 53-67 mins) Total time: 120 minutes Rosa Abrams OT/L, CDRS, CDI Certified Property Site Manager Advanced Clinical Specialist documented in this encounterZanesville City Hospital11-23-2022 History of Present illness Narrative* Stephany [...] given. Stephany Abraham LPN documented in this encounterZanesville City Hospital11-21-2022 Miscellaneous Notes* Telephone Encounter - Jayashree Farmer APRN.CNP - 09/29/2022 12:24 PM EST Noted. Jayashree Farmer APRN.CNP * Telephone Encounter - Yaritza Rodriguez - 09/29/2022 11:49 AM EST [facility] called to report that the patient fell over the weekend. He did not report and injuries following the fall. documented in this encounterZanesville City Hospital11-17-2022 Instructions* Patient Instructions* Israel Pruitt DO [...] avoid fall 3. Patient will follow-up with [facility] hematology on October 09. He [...] by cardiology next week. documented in this encounterZanesville City Hospital11-17-2022 History of Present illness Narrative* Israel Pruitt DO - 09/25/2022 11:41 AM EST Patient presents with: Hospital F/U HPI: Srini Luis is a 86 year old male who presents to the office today for routine hospital follow-upwith us today. 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 [...] Dr Matt Flannery. PAF (paroxysmal atrial fibrillation) ([facility]) 2020 Post CABG atrial fibrillation PVC's (premature ventricular contractions) RBBB Status post ligation of left atrial appendage 07/2021 At time of CABG PAST SURGICAL HISTORY Procedure Laterality Date ANKLE RIGHT OP SURGERY Right 12/18/2020 Dr Arreola [facility] ARTHROPLASTY TOTAL SHOULDER 11/09/2008 right ARTHROSCOPY OF [...] 1.00 - 4.00 k/uL 1.53 0.86 (L) Vance% % 14.4 13.2 Abs Vance <0.87 k/uL 0.89 (H) 1.17 (H) Eosin% [...] Lymph 1.00 - 4.00 k/uL 0.86 (L) Vance% % 13.2 Abs Vance <0.87 k/uL 1.17 (H) Eosin% % 2.6 [...] which included preparing to see the patient, [id number] patient care, completing clinical documentation, obtaining and/or [...] reviewed Yadira Walsh LPN documented in this encounterZanesville City Hospital11-15-2022 Miscellaneous Notes* Addendum Note - Jayashree [...] Thank you! Cami Plasencia documented in this encounterZanesville City Hospital11-11-2022 History of Present illness Narrative* Lena [...] male admitted to [facility] from 09/15 - 09/18/2022 for symptomatic bradycardia, needed pacer. Appointments: NEURO / Dr. Rob - 09/23/2022 PCP / Dr. Pruitt - 09/25/2022 [facility] - 10/01/2022 Heart Failure Clinic, Tara Neal APRN, TELEPHONE ORDER SUPERVISOR - 10/16/2022 [facility] - Start of Care visit tomorrow. [...] -Pt discharged from [facility] on 09/18/2022. -Follow up appointment on 09/25/2022. -Medication review done: Yes. -Admitted for: Symptomatic bradycardia, needed pacer CONCERNS: As above NEW MEDICATIONS: Metoprolol Tartrate 25 mg tablets, /2 tablet (12.5 mg) twice daily -- lower dose Xarelto 20 mg, resume taking 09/20/2022 MEDS HELD/DISCONTINUED: None BRIEF HOSPITAL COURSE: Copied / pasted from [facility] notes: PROCEDURES DURING HOSPITALIZATION: Pacer placed , [...] [facility] [place]. We will reach out to the patient tomorrow to have a phone encounter to make sure the patient is clear in regards to discharge med list and reconcile those meds on discharge. Lena Cruz RN documented in this encounterZanesville City Hospital11-11-2022 Miscellaneous Notes* Telephone Encounter - Minerva Herbert RN - 09/19/2022 11:44 AM EST Phone call received from Liza Mark, patients daughter. Requested canceling and rescheduling hisnext appointment with the [facility] secondary to having follow up appointments with PCP, Cardiology and SN. Appt rescheduled for October 16, 2022. documented in this encounterZanesville City Hospital11-11-2022 History of Present illness Narrative* Ten Weber, [facility] - 09/19/2022 8:47 AM EST TRANSITION CARE MANAGEMENT (TCM) PHARMACY CONTACT Provider Action/FYI: TCM Medication Reconciliation completed for patient. See medication list table below for details. ACTION REQUIRED: D/t inadvertent confusion regarding metoprolol dose change, patient received full 25mg (50mg 1/2 tablet) last night and this morning- dtr agrees to call pharmacy and get new dosage (25mg 1/2 tablet BID) from [facility] pharmacy- route to PCP to review/FYI, confirmed at time of note per pharmacy records that new dosage was picked up Initial contact with patient post discharge, spoke to patient and family member, rojas De Jesus (per pt preference- dtr manages medications),. Patient identified by name and . Summary: -Pt discharged from [facility] on 09/18/22. -Follow up appointment on 09/25 card CHF, Defer to TCM hub RN for scheduling assistance. -Medication review done: Full medication review completed -Admitted for symptomatic bradycardia, needed pacer Patient was contacted by telephone, identified for pharmacist care from discharge call list, and gave consent to manage medications related to transitional care management pursuant to the consult agreement with the [facility] [place]. Patient Concerns: Review and discussion of medications [...] use [facility] a walk[facility] living at [place]. We will reach out to the patient [...] 2021 Pharmacy 08/05/22 E- [facility] [place] [address] - [address] [phone] Allergy/Contraindication: atorvastatin Reactions: Other: See Comments. Reaction type: Side Effect/Intolerance. User documented allergy severity: Medium. Drug Class Match with SIMVASTATIN (Class: [id number]-MMJ REDUCTASE INHIBITORS). 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 on pharmacy dispense records with recent fill hx Patient reportedly taking as prescribed without any issues Preferred pharmacy: [facility] [place] [address] - [address] [phone] [id number] [facility] [id number] Estimated Creatinine Clearance: 43.5 mL/min (based on SCr of 1.14 mg/dL). 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 The patient is thymoma negative seronegative for antibodies positive. Asymptomatic since July 2017 when he's been off medication Nocturnal hypoxemia On oxygen at night Osteoarthritis, generalized Pacemaker 09/17/2022 Dual Pacer (Bimiciron[employer] games) for High Grade AV Blk below His; 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 PAF (paroxysmal atrial fibrillation) ([facility]) 2020 Post CABG atrial fibrillation PVC's (premature [...] COVID-19 booster vaccine, age 12+ yr, bivalent ([employer]) 07/24/2022 COVID-19 original vaccine, age 12+ yr, monovalent (Topmall-GVISP 1 - PURPLE TOP) 12/04/2020 12/25/2020 08/20/2021 05/19/2022 [...] PM NURSE CARD CHF 3 PEG DUMONT [phone] 09/25/2022 3:00 PM TARA NEAL [employer] [phone] 10/01/2022 11:30 AM DEVICE CLINIC CARD UP ALYSSA GORDON (S [phone] 10/06/2022 1:30 PM RADHAROSA ROSADO [employer] [facility] N [phone] 10/09/2022 10:30 AM RANDA ROWELL [facility] [phone] Interventions Made: Patient education/Medication counseling and Adherence counseling Pharmacist Recommendations Made None Care Coordination: Pharmacy contacted to facilitate patient care ([facility] records) Time spent on patient: 45-60 minutes TEN WEBER PHARMACIST, [facility] Pharmacy Transitional Care Management September 19, 2022 2:42 PM documented in this encounterZanesville City Hospital11-[facility]22 History of Past illness Narrative* Problem [...] 08/11/2005 01/02/2015 Follow-up examination following surgery 10/31/2001/02/2015 [facility] current use of ant icoagulants with INR goal of 2.0-3.0 09/15/2022 Nocturnal hypoxemia 08/29/2022 Overview: On oxygen at night documented as of this encounter (statuses as of 09/19/2022) [facility] History of Past illness Narrative* Problem [...] Follow-up examination following surgery 10/31/20 03 01/02/2015 [facility] current use of ant icoagulants with INR goal of 2.0-3.0 09/15/2022 Nocturnal hypoxemia 08/29/2022 Overview: On oxygen at night documented as of this encounter (statuses as of 09/19/2022) [facility] History of Past illness Narrative* Problem [...] Follow-up examination following surgery 10/31/20 03 01/02/2015 [facility] current use of ant icoagulants with INR goal of 2.0-3.0 09/15/2022 Nocturnal hypoxemia 08/29/2022 Overview: On oxygen at night documented as of this encounter (statuses as of 09/19/2022) [facility] of Past illness Narrative* Problem [...] 08/11/2005 01/02/2015 Follow-up examination following surgery 10/31/2001/02/2015 [facility] current use of ant icoagulants with INR goal of 2.0-3.0 09/15/2022 Nocturnal hypoxemia 08/29/2022 Overview: On oxygen at night documented as of this encounter (statuses as of 09/23/2022) [facility] of Past illness Narrative* Problem [...] 08/11/2005 01/02/2015 Follow-up examination following surgery 10/31/20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 with INR goal of 2.0-3.0 09/15/2022 Nocturnal hypoxemia 08/29/2022 Overview: On oxygen at night documented as of this encounter (statuses as of 09/24/2022) [facility] of Past illness Narrative* Problem [...] Follow-up examination following surgery 10/31/20 03 01/02/2015 [facility] current use of ant icoagulants with INR goal of 2.0-3.0 09/15/2022 Nocturnal hypoxemia 08/29/2022 Overview: On oxygen at night documented as of this encounter (statuses as of 09/25/2022) [facility] of Past illness Narrative* Problem [...] 08/11/2005 01/02/2015 Follow-up examination following surgery 10/31/2001/02/2015 [facility] current use of ant icoagulants with INR goal of 2.0-3.0 09/15/2022 Nocturnal hypoxemia 08/29/2022 Overview: On oxygen at night documented as of this encounter (statuses as of 09/29/2022) [facility] of Past [facility] Narrative* Problem [...] Follow-up examination following surgery 10/31/20 03 01/02/2015 [facility] current use of ant icoagulants with INR goal of 2.0-3.0 09/15/2022 Nocturnal hypoxemia 08/29/2022 Overview: On oxygen at night documented as of this encounter (statuses as of 10/01/2022) [facility] of Past illness Narrative* Problem [...] Follow-up examination following surgery 10/31/20 03 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 with INR goal of 2.0-3.0 09/15/2022 Nocturnal hypoxemia 08/29/2022 Overview: On oxygen at night documented as of this encounter (statuses as of 10/08/2022) [facility] of Past [facility] Narrative* Problem [...] Follow-up examination following surgery 10/31/20 03 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 with INR goal of 2.0-3.0 09/15/2022 Nocturnal hypoxemia 08/29/2022 Overview: On oxygen at night documented as of this encounter (statuses as of 10/09/2022) [facility] of Past [facility] Narrative* Problem [...] Follow-up examination following surgery 10/31/20 03 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 with INR goal of 2.0-3.0 09/15/2022 Nocturnal hypoxemia 08/29/2022 Overview: On oxygen at night documented as of this encounter (statuses as of 10/09/2022) [facility] Past [facility] Narrative* Problem [...] Follow-up examination following surgery 10/31/20 03 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 with INR goal of 2.0-3.0 09/15/2022 Nocturnal hypoxemia 08/29/2022 Overview: On oxygen at night documented as of this encounter (statuses as of 10/16/2022) [facility] of Past [facility] Narrative* Problem [...] Follow-up examination following surgery 10/31/20 03 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 with INR goal of 2.0-3.0 09/15/2022 Nocturnal hypoxemia 08/29/2022 Overview: On oxygen at night documented as of this encounter (statuses as of 10/23/2022) [facility] Past [facility] Narrative* Problem [...] Follow-up examination following surgery 10/31/20 03 01/02/2015 [facility] current use of ant icoagulants with INR goal of 2.0-3.0 09/15/2022 Nocturnal hypoxemia 08/29/2022 Overview: On oxygen at night documented as of this encounter (statuses as of 10/25/2022) [facility] Narrative* Problem [...] Follow-up examination following surgery 10/31/20 03 01/02/2015 [facility] current use of ant icoagulants with INR goal of 2.0-3.0 09/15/2022 Nocturnal hypoxemia 08/29/2022 Overview: On oxygen at night documented as of this encounter (statuses as of 10/28/2022) [facility] Narrative* Problem [...] Follow-up examination following surgery 10/31/20 03 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.] 08/11/2005 01/02/2015 Follow-up examination following surgery 10/31/20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 with INR goal of 2.0-3.0 09/15/2022 Nocturnal hypoxemia 08/29/2022 Overview: On oxygen at night documented as of this encounter (statuses as of 11/20/2022) [facility] of Past [facility] Narrative* Problem [...] 08/11/2005 01/02/2015 Follow-up examination following surgery 10/31/20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 with INR goal of 2.0-3.0 09/15/2022 Nocturnal hypoxemia 08/29/2022 Overview: On oxygen at night documented as of this encounter (statuses as of 11/26/2022) [facility] Past [facility] Narrative* Problem [...] 08/11/2005 01/02/2015 Follow-up examination following surgery 10/31/2001/02/2015 [facility] current use of ant icoagulants with INR goal of 2.0-3.0 09/15/2022 Nocturnal hypoxemia 08/29/2022 Overview: On oxygen at night documented as of this encounter (statuses as of 11/26/2022) [facility] of Past [facility] Narrative* Problem [...] 08/11/2005 01/02/2015 Follow-up examination following surgery 10/31/20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 with INR goal of 2.0-3.0 09/15/2022 Nocturnal hypoxemia 08/29/2022 Overview: On oxygen at night documented as of this encounter (statuses as of 12/04/2022) [facility] of Past [facility] Narrative* Problem [...] 08/11/2005 01/02/2015 Follow-up examination following surgery 10/31/20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.] Follow-up examination following surgery 10/31/20 03 01/02/2015 [facility] current use of ant icoagulants with INR goal of 2.0-3.0 09/15/2022 Nocturnal hypoxemia 08/29/2022 Overview: On oxygen at night documented as of this encounter (statuses as of 12/12/2022) [facility] of Past illness Narrative* Problem [...] Follow-up examination following surgery 10/31/20 03 01/02/2015 [facility] current use of ant icoagulants with INR goal of 2.0-3.0 09/15/2022 Nocturnal hypoxemia 08/29/2022 Overview: On oxygen at night documented as of this encounter (statuses as of 12/15/2022) [facility] of Past illness Narrative* Problem [...] Follow-up examination following surgery 10/31/20 03 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 with INR goal of 2.0-3.0 09/15/2022 Nocturnal hypoxemia 08/29/2022 Overview: On oxygen at night documented as of this encounter (statuses as of 2022) [facility] History of Past illness Narrative* Problem [...] Follow-up examination following surgery 10/31/20 03 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 with INR goal of 2.0-3.0 09/15/2022 Nocturnal hypoxemia 08/29/2022 Overview: On oxygen at night documented as of this encounter (statuses as of 12/23/2022) [facility] of Past illness Narrative* Problem [...] Follow-up examination following surgery 10/31/20 03 01/02/2015 [facility] current use of ant icoagulants with INR goal of 2.0-3.0 09/15/2022 Nocturnal hypoxemia 08/29/2022 Overview: On oxygen at night documented as of this encounter (statuses as of 12/31/2022) [facility] Miscellaneous Notes* Telephone Encounter - Bebo [...] call daughter and advise. documented in this encounterZanesville City Hospital11-08-2022 Miscellaneous Notes* Telephone Encounter - Lena [...] understanding. Lena Cruz RN documented in this encounterZanesville City Hospital11-03-2022 Instructions* Patient Instructions* Israel Pruitt, - 09/11/2022 4:44 PM EDT 1. No change in current medication 2. Labs will be drawn next week the week of September 15 prior to the patient's hematology visit within [facility] including CBC and iron levels that will [...] concern of the patient living independent at [place]. 7. Patient is up-to-date on vaccinations documented in this encounterZanesville City Hospital11-03-[facility]22 History of Present illness Narrative* Israel Pruitt DO - 09/11/2022 4:20 PM EDT Patient presents with: Transition Of Care: Rehab HPI: Srini Luis is a 86 year old male who presents to the office today for hospital follow up with laurita at [facility] [address] for left pontine stroke Patient is here for hospital follow-up with the acute hospitalization at [facility] August 22 through August 26. 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 Acute Ischemic Stroke ([facility]) Malnutrition of Moderate Degree ([facility]) ALLERGIES Allergen Reactions Simvastatin Other: See Comments [...] Lymph 1.00 - 4.00 k/uL 0.88 (L) Vance% % 7.1 Abs Vance <0.87 k/uL 0.77 Eosin% % 2.3 Abs [...] which included preparing to see the patient, [id number] patient care, completing clinical documentation, obtaining and/or [...] EDT Pt is here for a TCM ([facility] rehab discharge 09-05-22) Medication list review Yadira Walsh LPN documented in this encounterZanesville City Hospital11-03-2022 Miscellaneous Notes* Telephone Encounter - Mary [...] 09/11/2022 10:09 AM EDT Citlalli CHILDERS from [facility] calls with patient's plan of care for Occupational Therapy. Occupational therapy will see patient for 5 visits to improve function of left arm/hand and work with patient on safely completing daily activities. Please review and advise, Mary Ann Pabon RN documented in this encounterZanesville City Hospital11-01-2022 History of Present illness Narrative* Israel [...] male admitted to [facility] Acute Rehab from 08/26- 09/05/2022 for rehab [...] -Pt discharged from [facility] [facility] Acute Rehab on . -Follow up appointment on 09/11/2022. -Medication review done: Yes -Admitted for: Rehab following acute ischemic stroke CONCERNS: None at this time from patient. NEW MEDICATIONS: None MEDS HELD/DISCONTINUED: None BRIEF HOSPITAL COURSE: Copied / pasted from [facility] notes: Additional Provider to Provider Information: Patient [...] MD Lena Davis RN documented in this encounterZanesville City Hospital10-28-2022 Miscellaneous Notes* Telephone Encounter - Lena Cruz RN - 09/05/2022 9:[address] Pruitt, called patient's daughter, Liza, with update that patient will be discharged to [place] today, after receiving a unit of blood. 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 Appointment with Dr. Pruitt is already scheduled on 09/11. She expresses her appreciation to PCP for his care and updates to family. Lena Cruz RN documented in this encounterZanesville City Hospital10-26-2022 Miscellaneous Notes* Telephone Encounter - Lena [...] Please let her know. documented in this encounterZanesville City Hospital10-14-2022 History of Present illness Narrative* Vaishali Ng MD, PhD - 08/22/2022 2:41 PM EDT TELESTROKE DOCUMENTATION Name: Srini Luis : 1935 Referring Site: [facility] Referring Provider: Last Known Well (Date/Time): [...] a telestroke. Thank you for contacting the [facility]. I appreciate the opportunity for allowing me to participate in Srini Luis's care. Please feel free to contact me and/or the [facility] at any time if you have any further questions or need additional assistance. Vaishali Ng MD, PhD documented in this encounterZanesville City Hospital10-06-2022 Miscellaneous Notes* Telephone Encounter - Israel [...] once daily. Micaela SILVEIRA documented in this encounterZanesville City Hospital09-29-2022 History of Present illness Narrative* Jayashree [...] Summary: TCM F/U Patient was treated at [facility] 07/04-07/09/22 for bilateral leg swelling, CHF [...] Summary: TCM F/U Patient was treated at [facility] 07/04-07/09/22 for bilateral leg swelling, CHF [...] to review and assist with rx refill. Java Sybase Developer plan for next outreach: No further follow up needed at this time Referred to Primary Care CDM for continued monitoring of Chronic condition CHF Encouraged patient to contact office sooner for any new/worsening symptoms/concerns. Signature Tere GERONIMO, RN, [facility] Primary Care Transitional Java Sybase Developer [facility] [phone] August 07, 2022 documented in this encounterZanesville City Hospital09-27-2022 Miscellaneous Notes* Telephone Encounter - Jayashree [...] patient. Lena Cruz RN documented in this encounterZanesville City Hospital09-16-2022 History of Present illness Narrative* Tere Wang RN - 07/25/2022 1:44 PM EDT TRANSITION CARE MANAGEMENT (TCM) FOLLOW-UP NOTE Provider FYI Summary: TCM F/U Patient was treated at [facility] 07/04-07/09/22 for bilateral leg swelling, CHF Noted patient had PCP office visit F/U yesterday 07/24/22 Patient outreach deferred to another day Summary: TCM F/U Patient was treated at [facility] 07/04-07/09/22 for bilateral leg swelling, CHF Noted patient had PCP office visit F/U yesterday 07/24/22 Patient outreach deferred to another day Java Sybase Developer plan for next outreach: Will follow up 1 week Signature Tere Wang MSN, RN, [facility] Primary Care Transitional Java Sybase Developer [facility] [phone] July 25, 2022 documented in this encounterZanesville City Hospital09-15-2022 Instructions* Patient Instructions* Israel Pruitt DO [...] to lumbar canal stenosis. documented in this encounterZanesville City Hospital09-15-2022 History of Present illness Narrative* Israel Pruitt, DO - 07/24/2022 11:17 AM EDT Patient presents with: Hospital F/U: [facility] 07-04-22 to 07-09-22-CHF HPI: Srini Luis is a 86 year old male who presents to the office today for routine OV with us today. Patients lost his dear in the last 2 months Patient lives in [place] at [place] in [place] . 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 4 vessel CABG with ORNELAS-LAD, SVG-RI, SVG-OM, and SVG-RCA in [place] Hx of colonoscopy 09/27/2015 no reported polyps per patient recollection Hypertension Hypothyroidism [facility] current use of anticoagulants with INR goal [...] RIGHT OP SURGERY Right 12/18/2020 Dr Arreola [facility] ARTHROPLASTY TOTAL SHOULDER 11/09/2008 right ARTHROSCOPY OF [...] Appendage Osteoarthritis, Generalized Paf (Paroxysmal Atrial Fibrillation) ([facility]) Brush Maker Current Use of Anticoagulants With Inr Goal of 2.0-3.0 Nocturnal Hypoxemia Pvc's (Premature Ventricular Contractions) Benign Hypertension Rbbb Chf (Congestive Heart Failure), Nyha Class I, Acute On Chronic, Diastolic ([facility]) ALLERGIES Allergen Reactions Simvastatin Other: See Comments [...] daily. 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, enteric coated (ASPIRIN, ENTERIC COATED) [...] - 4.00 k/uL 1.19 1.10 1.35 1.31 Vance% % 12.7 13.9 15.1 13.5 Abs Vance <0.87 k/uL 1.03 (H) 1.12 (H) 1.13 [...] Negative Ketones, Urine Negative Negative Negative Specific [place], Ur 1.005 - 1.030 <1.005 (L) 1.008 [...] which included preparing to see the patient, [id number]-tbwr patient care, completing clinical documentation, obtaining and/or [...] Pt is here for a hospital follow up-[facility] 07-04-22 to 07-09-22 for CHF Medication reconciliation completed Yadira Walsh LPN documented in this encounterZanesville City Hospital09-13-2022 Miscellaneous Notes* Telephone Encounter - Meron Villa RN - 07/22/2022 1:[address] Trevizo reviewed case as recommended by Marcella Trevizo agrees to proceed with Bilateral L4-L5, L5-S1 Lumbar Faced MMB documented in this encounterZanesville City Hospital09-08-2022 [facility]09-08-2022 History of Present illness Narrative* Rosa [...] reported polyps per patient recollection Hypertension Hypothyroidism [facility]FP current use of anticoagulants with INR goal [...] daily. 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 Greater than 50% of the time was spent counseling and/or coordinating care for the patient, the nature of which is noted above. The health conditions of this patient carry a high risk of complications, morbidity, and/or mortality. documented in this encounterZanesville City Hospital09-08-2022 Nurse Note* Christa Paris RN - 07/17/2022 10:56 AM EDT [id number], his daughter and his son-in-law, came to the [facility] for a mew patient visit. Patient [...] admit to occasional salt shaker use/dining out. [id number] Gonzalez PA-C in to examine and educate patient. Orders received. Patient to uoseyge05 mg of IV Lasix in the C. No further Lasix today. Verbal and written instructions provided. Patient verbalized understanding. [id number] patient was using canned items and was still using the salt shaker. Extensive education was provided with emphasis on the need to weigh daily, read labels, monitor Na/fluids, monitoringfor signs/symptoms, and when to call the [facility] for early intervention. Discussed importance of balancing sodium throughout the day for a goal of 500-650 mg per meal (4964-1200 mg per day) and to limit fluids to 48-64 ounces per day. Encouraged the patient to call the [facility] with any questions/concerns. Discussed home exercise [...] (time): 1150 Complications: no documented in this encounterZanesville City Hospital09-08-2022 Instructions* Patient Instructions* Christa Paris RN - 07/17/2022 10:55 AM EDT Thank you for visiting the [facility] today. YOU RECEIVED 20 MG OF IV FUROSEMIDE (LASIX) IN THE [facility]. NO FURTHER FUROSEMIDE (LASIX) TODAY (07/17/22). ON 07/18/22, RETURN TO FUROSEMIDE (LASIX) 20 MG TWICE A DAY. Please weigh daily and record. Read your food labels and watch for hidden sodium. Keep your sodium intake between 7465-3880 mg daily. 500-650 mg per meal. Continue to eat small, frequent meals. Try to include a form of protein with every meal. Keep your fluid intake at 48-64 ounces /day. Increase your activity as tolerated. Call the [facility] ([phone]) for AN APPOINTMENT (NO WALK-IN VISITS) if you have changes in symptoms or increase in weight of 3 lbs in one day or 5 lbs in a week. Thank you, Christa Paris RNTWICE A DAY documented in this encounterZanesville City Hospital09-02-2022 Miscellaneous Notes* Telephone Encounter - Roselia [...] Therapist), calls stating patient was discharged from [facility] yesterday following treatment for CHF exacerbation. [...] had been ordered for patient. Advised this sign writer hand or [facility] Nurse will be reaching out to patient today or tomorrow. She verbalizes understanding. Lena Cruz RN documented in this encounterZanesville City Hospital09-01-2022 Miscellaneous Notes* Telephone Encounter - Yenny Montano - 07/10/2022 1:46 PM EDT The patient was discharged from [facility] 07-09-22 with an order to schedule with the [facility]. The Clinic reached out to the patient. Appointment scheduled 07-17-22. Yenny Montano documented in this encounterZanesville City Hospital09-01-2022 History of Present illness Narrative* Lupis Servin MA - 07/10/2022 12:35 PM EDT POPULATION HEALTH NAVIGATION OUTREACH Action/July 10, 2022 1st attempt Attempted to reach patient to assist with scheduling his [facility] follow up. Left message [...] for Outreach Community Monitoring Pool Payer: Payor: [facility] MEDICARE / Plan: [employer] AARP MEDICARE HMO [...] TCM Home Visit Referral Source of Stratification: [facility] Admission Status: Discharged Readmission Risk Score: 22 BECKY Score: 15 Program referral criteria met: Does not meet referral criteria Patient does not qualify for High Risk TCM Home Visit program due to: Does not meet referral criteria Patient does not quality for High Risk TCM Home Visit Program due to: Does not meet referral criteria Preferred contact number: [phone] Is patient staying somewhere other than the [...] TCM Eligible through 07/23/22 will forward to senior power scheduler SUMMARY: Pt discharged from [facility] on 07/09/22. Admitted for: CHF Contact made with patient: Yes Hi my name is Telma Thorpe, JESSY and I am calling from the [facility] on behalf of your PCP, Israel [...] like to speak with a social work merchandising team lead to help give you support for any [...] I will send your request to a senior power scheduler who will contact and assist you with that appointment. This will give you an opportunity to ask any questions or address any concerns youmay have with your PCP. Inform the patient that if they have any questions or concerns prior to that appointment, to call their PCP's office right away. ACTION TAKEN: Patient desires an appointment - Routed to [facility] [[phone]] for schedulingtelehealth visit (telephonic, virtual visit, or [...] the way if possible). documented in this encounterZanesville City Hospital08-31-2022 NoteHNO ID: [id number] Author: Bebo Cuevas RN Service: Nursing Author Type: Registered Nurse Type: Nursing Progress Note Filed: 07/09/2022 2:27 PM Note Text: Discharge instructions given to pt, family at bedside and will transport home.[facility]08-31-2022 Miscellaneous Notes* Telephone Encounter - Micaela SILVEIRA - 07/09/2022 4:24 PM EDT Advised Santana of the message below, verbalized understanding. Micaela Belkys SILVEIRA * Telephone Encounter - Guillermina Cummings APRN.CNP - 07/09/2022 4:18 PM EDT Ok for HH orders * Telephone Encounter - Almita Hernandez LPN - 07/09/2022 12:28 PM EDT Santana from calling to state pt will be discharging from [facility] todayfor CHF exacerbation. Santana requesting VO for home care to include residential, OT & PT. Pt will start this tomorrow if it is ok'd by pcp today. Almita Hernandez LPN documented in this encounterZanesville City Hospital08-31-2022 [facility]08-30-2022 [facility]08-29-2022 [facility]08-28-2022 [facility]08-27-2022 [facility]08-26-[facility] History of Past illness Narrative* Problem [...] of this encounter (statuses as of 09/03/2022) [facility] History of Past illness Narrative* Problem [...] of this encounter (statuses as of 09/05/2022) [facility] History of Past illness Narrative* Problem [...] of this encounter (statuses as of 09/09/2022) [facility] History of Past illness Narrative* Problem [...] of this encounter (statuses as of 09/10/2022) [facility] History of Past illness Narrative* Problem [...] of this encounter (statuses as of 09/11/2022) [facility] of Past illness Narrative* Problem [...] of this encounter (statuses as of 09/11/2022) [facility] History of Past illness Narrative* Problem [...] Follow-up examination following surgery 10/31/20 03 01/02/2015 [facility]FP current use of ant icoagulants with INR goal of 2.0-3.0 09/15/2022 Nocturnal hypoxemia 08/29/2022 Overview: On oxygen at night documented as of this encounter (statuses as of 09/17/2022) [facility]08-26-2022 Miscellaneous Notes* Telephone Encounter - Yadira Walsh LPN - 07/04/2022 1:27 PM EDT Pt called back and said that the swelling in his groin/scrotum started 2 days ago Per Hermelinda-pt advised to go to ED (pt is going to go to [facility]) Yadira Walsh LPN * Telephone Encounter - [...] ER. Jayashree Farmer APRN.CNP documented in this encounterZanesville City Hospital08-16-2022 Miscellaneous Notes* Telephone Encounter - Jackelin Lopez Ma - 06/24/2022 1:57 PM EDT Received cardiac clearance letter back from Cardiology, Dr. Nunn. Patient has cardiac clearance and is approved to hold Xarelto for 48 hours and asa 81 for 2 days prior to injection. Mastodon C message sent to notify patient of above. [...] Will generate letter and fax to patient's scrip clerk, Dr. Nunn. Patient will also need the ok to hold ASA 81 and Xarelto prior to procedure. Pre-procedure Instructions reviewed over telephone and a list of instructions were sent via Mastodon C. Patient verbalized understanding with no additional questions or concerns at this time. * Telephone Encounter - Jackelin Lopez Ma - 06/13/2022 4:18 PM EDT Received referral from Laron Fortune PA-C to schedule Lumbar MBB; Bilateral; Level: L4-S1 with Dr. Baljinder Trevizo. Will reach out to schedule within 5 business days. Patient added to procedure scheduling list. documented in this encounterZanesville City Hospital08-02-2022 History of Present illness Narrative* Iram Johnson APRN.TELEPHONE ORDER SUPERVISOR - 06/10/2022 11:20 AM EDT [facility] [...] with ORNELAS-LAD, SVG-RI, SVG-OM, and SVG-RCA in [facility] Hx of colonoscopy 09/27/2015 no reported polyps per patient recollection Hypertension Hypothyroidism [facility]FP current use of anticoagulants with INR goal [...] RIGHT OP SURGERY Right 12/18/2020 Dr Arreola [facility] ARTHROPLASTY TOTAL SHOULDER 11/09/2008 right ARTHROSCOPY OF [...] daily. 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 2. 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- ICD9: 414.01, ICD10: [...] care physician. 4. PAF (paroxysmal atrial fibrillation) ([facility]) - ICD9: 427.31, ICD10: I48.0 Patient has a history of post CABG atrial fibrillation. He is maintaining sinus rhythm in the antiarrhythmic drug free state. We will plan to continue same medications and monitor for recurrent atrial fibrillation. 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 Iram Johnson APRN.TELEPHONE ORDER SUPERVISOR documented in this encounterZanesville City Hospital07-29-2022 Miscellaneous Notes* Telephone Encounter - Mary Ann Garcia RN - 06/06/2022 3:17 PM EDT Mastodon C message has not yet been read. Call to patient to explain that if injections are desired, patient does need to be seen in the office by Laron Fortune PA-C. Transferred to [facility] to schedule. Mary Ann Garcia RN June 06, 2022 3:18 PM documented in this encounterZanesville City Hospital07-27-2022 Miscellaneous Notes* Telephone Encounter - Israel [...] , Israel Pruitt DO documented in this encounterZanesville City Hospital07-27-2022 History of Present illness Narrative* Janet [...] 04, 2022 3:52 PM documented in this encounterZanesville City Hospital07-25-2022 Miscellaneous Notes* Telephone Encounter - Israel [...] hospital from over the weekend coming from [place] after being discharged there on Thursday The hospitalist physicians let me know that Marcie came in for chest pain. Stress test was normal Chest CT was negative for pulmonary emboli The obvious recommendation would be for the patient to discharge back to [place] but we have had difficulties with discharge [...] tomorrow Israel Pruitt DO documented in this encounterZanesville City Hospital07-21-2022 Instructions* Patient Instructions* Israel Pruitt DO [...] week for 4 to 6 weeks at [place] to improve gait to reduce the risk [...] stenosis with neurogenic claudication documented in this encounterZanesville City Hospital07-21-2022 History of Present illness Narrative* Israel [...] back pain , saw Dr Fortune in [place] on May 08 . 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 ARTHROPLASTY TOTAL SHOULDER 11/09/2008 right ARTHROSCOPY OF [...] Osteoarthritis, Generalized Paf (Paroxysmal Atrial Fibrillation) ([facility]) Longterm Current Use of Anticoagulants With Inr Goal [...] daily. 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 Lena Cruz RN documented in this encounterZanesville City Hospital07-08-2022 Miscellaneous Notes* Telephone Encounter - Jayashree Farmer APRN.MAURICIO - 05/16/2022 5:09 PM EDT Notified patient he is up to date on vaccines. Jayashree Farmer APRN.CNP documented in this encounterZanesville City Hospital06-30-2022 Instructions* Patient Instructions* Laron Fortune PA-C [...] hazy, disoriented, or confused. documented in this encounterZanesville City Hospital06-30-2022 History of Present illness Narrative* Laron Fortune PA-C - 05/08/2022 1:06 PM EDT Images from the original note were not included. [facility]on Fortune [facility]C [facility] [address] [id number] Dear Israel Pruitt DO, Srini Luis is [...] daily. 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 This includes xdwc-ke-uqdp time, review of chart records regarding conservative care history, spine- pertinent imaging, and communication/care coordination with referring provider, problem-specific history-taking and counseling/education regarding treatment options. This document has been created with the use of voice recognition technology. It may contain inaccuracies: (e.g. misspellings, inaccurate syntax or word sense) that have escaped review. Amanda Soares documented in this encounterZanesville City Hospital06-09-2022 Miscellaneous Notes* Telephone Encounter - Jayashree [...] patient. Lena Cruz RN documented in this encounterZanesville City Hospital06-03-2022 History of Present illness Narrative* Eyal [...] 40 Eyal Rodrigues PT documented in this encounterZanesville City Hospital05-27-2022 History of Present illness Narrative* Eyal [...] 40 Eyal Rodrigues PT documented in this encounterZanesville City Hospital05-25-2022 Miscellaneous Notes* Telephone Encounter - Lena [...] , Israel Pruitt DO documented in this encounterZanesville City Hospital05-20-2022 History of Present illness Narrative* Eyal [...] 40 Eyal Rodrigues PT documented in this encounterZanesville City Hospital05-16-2022 Miscellaneous Notes* Telephone Encounter - Micaela [...] can get that here documented in this encounterZanesville City Hospital05-13-2022 History of Present illness Narrative* Guillermina [...] 2019 , severe LCS L2-3 Osteoarthritis, Generalized Longterm Current Use of Anticoagulants With Inr Goal of 2.0-3.0 Nocturnal Hypoxemia Comment: On oxygen at night Pvc's (Premature Ventricular Contractions) Hx of Cabg - 07/10/2021 Comment: 4 vessel CABG Status Post Ligation of Left Atrial Appendage - 07/10/2021 Comment: At time of CABG Paf (Paroxysmal Atrial Fibrillation) ([facility]) - 11/09/2020 Comment: Post CABG atrial fibrillation B12 Deficiency - 07/11/2020 Vitamin D Deficiency - 07/11/2020 Macrocytosis - 07/11/2020 Venous Stasis of Both Lower Extremities - 07/11/2020 Hx of Colonoscopy - 09/27/2015 Comment: no reported polyps per patient recollection S/P Shoulder Replacement - 02/08/2015 Myasthenia Gravis ([facility]) - 04/19/2012 Essential Hypertension, Benign - 01/12/2012 [...] RIGHT OP SURGERY Right 12/18/2020 Dr Arreola [facility] ARTHROPLASTY TOTAL SHOULDER 11/09/2008 right ARTHROSCOPY OF [...] daily. 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 Follow Up Plans: Pending labs, follow up arranged with pcp documented in this encounterZanesville City Hospital05-13-2022 History of Present illness Narrative* Sanket [...] Care: created on 03/21/22 through 05/20/22 1. [place] in home exercise program. 2. Patient will [...] Planned: 8 Planned Treatment Interventions: Therapeutic exercise (40501);Neuromuscular re- education (55873);Manual therapy (62578);Therapeutic activities (33740);Self- mcc management (93623);Patient/Family/Caregiver Education;Functional training;General Conditioning PLAN FOR NEXT VISIT: [...] low back pain. 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 ARTHROPLASTY TOTAL SHOULDER 11/09/2008 right ARTHROSCOPY OF [...] Osteoarthritis, Generalized Paf (Paroxysmal Atrial Fibrillation) ([facility]) Longterm Current Use of Anticoagulants With Inr Goal [...] daily. 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 ARTHROPLASTY TOTAL SHOULDER 11/09/2008 right ARTHROSCOPY OF [...] daily. 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 Follow Up Plans: Pending his need for consultations arranged. documented in this encounterZanesville City Hospital04-14-2022 Miscellaneous Notes* Telephone Encounter - Yadira Walsh LPN - 02/20/2022 5:48 PM EDT Pt notified that a new RX was sent on 01-20-22 to [facility]\ will call and get that sent Yadira Jillian PARK documented in this encounterZanesville City Hospital04-14-2022 Miscellaneous Notes* Telephone Encounter - Micaela SILVEIRA - 02/20/2022 5:10 PM EDT Error documented in this encounterZanesville City Hospital04-11-2022 Miscellaneous Notes* Telephone Encounter - Israel [...] and advise. Micaela SILVEIRA documented in this encounterZanesville City Hospital04-04-2022 Miscellaneous Notes* Telephone Encounter - Guillermina Cummings APRN.MAURICIO - 02/10/2022 9:59 AM EDT The following approved medication requests have been transmitted electronically. Signed Prescriptions Disp Refills ferrous sulfate 325 mg (65 mg iron) tablet 60 tablet 11 Sig: Take 1 tablet by mouth twice daily with meals. Do not take within 2 hours of Coumadin or Synthroid. MARY: No Guillermina Cummings APRN.TELEPHONE ORDER SUPERVISOR * Telephone Encounter - Micaela SILVEIRA - 02/10/2022 8:26 AM EDT Pending Prescriptions Disp Refills FERROUS SULFATE 325 MG (65 MG IRON) TABLET 60 tablet 3 Sig: Take 1 tablet by mouth twice daily with meals. Do not take within 2 hours of Coumadin or Synthroid. MARY: No Micaela SILVEIRA documented in this encounterZanesville City Hospital04-04-2022 Miscellaneous Notes* Telephone Encounter - Pavan Bell - 02/10/2022 8:48 AM EDT Spoke with patient he stated he will call back once he figures out if he needs an appointment for paperwork from [employer]. documented in this encounterZanesville City Hospital02-05-2013 History of Past illness Narrative* Problem [...] of this encounter (statuses as of 02/10/2022) [facility] Narrative* Problem [...] of this encounter (statuses as of 02/10/2022) [facility] Narrative* Problem [...] of this encounter (statuses as of 02/17/2022) [facility] Narrative* Problem [...] of this encounter (statuses as of 02/20/2022) [facility] Narrative* Problem [...] of this encounter (statuses as of 02/20/2022) [facility] Narrative* Problem [...] of this encounter (statuses as of 02/27/2022) [facility] Narrative* Problem [...] of this encounter (statuses as of 03/13/2022) [facility] Narrative* Problem [...] of this encounter (statuses as of 03/18/2022) [facility] Narrative* Problem [...] of this encounter (statuses as of 03/21/2022) [facility] Narrative* Problem [...] of this encounter (statuses as of 03/21/2022) [facility] Narrative* Problem [...] of this encounter (statuses as of 03/24/2022) [facility] Narrative* Problem [...] of this encounter (statuses as of 03/28/2022) [facility] History of Past illness Narrative* Problem [...] of this encounter (statuses as of 04/02/2022) [facility] History of Past illness Narrative* Problem [...] of this encounter (statuses as of 04/04/2022) [facility] History of Past illness Narrative* Problem [...] of this encounter (statuses as of 04/11/2022) [facility] History of Past illness Narrative* Problem [...] of this encounter (statuses as of 04/17/2022) [facility] History of Past illness Narrative* Problem [...] of this encounter (statuses as of 05/08/2022) [facility] of Past illness Narrative* Problem [...] of this encounter (statuses as of 05/16/2022) [facility] of Past illness Narrative* Problem [...] of this encounter (statuses as of 05/26/2022) [facility] Narrative* Problem [...] of this encounter (statuses as of 05/27/2022) [facility] Past illness Narrative* Problem [...] of this encounter (statuses as of 05/29/2022) [facility] Past [facility] Narrative* Problem [...] of this encounter (statuses as of 05/30/2022) [facility] History of Past illness Narrative* Problem [...] of this encounter (statuses as of 06/02/2022) [facility] of Past illness Narrative* Problem [...] of this encounter (statuses as of 06/04/2022) [facility] of Past illness Narrative* Problem [...] of this encounter (statuses as of 06/05/2022) [facility] History of Past illness Narrative* Problem [...] of this encounter (statuses as of 06/06/2022) [facility] Narrative* Problem [...] of this encounter (statuses as of 06/10/2022) [facility] of Past illness Narrative* Problem [...] of this encounter (statuses as of 06/24/2022) [facility] Narrative* Problem [...] of this encounter (statuses as of 07/03/2022) [facility] Narrative* Problem [...] of this encounter (statuses as of 07/04/2022) [facility] Narrative* Problem [...] of this encounter (statuses as of 07/09/2022) [facility] Narrative* Problem [...] of this encounter (statuses as of 07/10/2022) [facility] Past [facility] Narrative* Problem [...] of this encounter (statuses as of 07/11/2022) [facility] Narrative* Problem [...] of this encounter (statuses as of 07/17/2022) [facility] Narrative* Problem [...] of this encounter (statuses as of 07/22/2022) [facility] Narrative* Problem [...] of this encounter (statuses as of 07/24/2022) [facility] Narrative* Problem [...] of this encounter (statuses as of 07/25/2022) [facility] Narrative* Problem [...] of this encounter (statuses as of 08/05/2022) [facility] Past illness Narrative* Problem [...] of this encounter (statuses as of 08/07/2022) [facility] Past [facility] Narrative* Problem [...] of this encounter (statuses as of 08/14/2022) [facility] Past illness Narrative* Problem [...] of this encounter (statuses as of 08/22/2022) [facility] May 18, 2023 3:08pm Note Date/Time May 18, 2023 3:05 pm [facility] Medical Records Department [address] [address] Consultation - Infectious Dx 05/18/23 1503 MR#: [id number] Acct: [id number] Name: SRINI LUIS Rep #:[id number] : 1935 87 From: Homer pablo MD PCP: Hamzah Pruitt Status:ADM IN Location: [place] [address] Assessment & Plan Assessment/Plan (1) Bacteremia due [...] performed and neg except as noted above. [facility] Medical History (Updated 05/18/23 @ 15:07 [...] 80.3 H, Lymph % (Auto) 11.3 L, Vance % (Auto) 4.2, Eos % (Auto) 1.9, [...] Dr. Homer Marsh MD; Hamzah Pruitt~ Signed [facility] Work Phone: Discharge summary Author Marshal Rebolledo [facility] Note Date/Time June 26, 2025 10 :41am [facility] Medical Records Department [address] [place] [address] Instructions for Home/Discharge Instructions 06/26/25 1033 MR#: [id number] Acct: [id number] Name: SRINI LUIS Rep #:[id number] : [...] MD; Dr. Ronaldo Pleitez MD ~ Signed [facility] Work Phone: Discharge summary Author Marshal Rebolledo [facility] Note Date/Time June 26, 2025 11 :30[facility] Medical Records Department [address] [place] [address] Discharge Summary 06/26/25 1041 MR#: [id number] Acct: [id number] Name: SRINI LUSI Rep #:[id number] : 1935 89 From: Marshal Nuñez PCP: Dr. Ronaldo Pleitez MD Status:A DM IN Location: [facility] [id number] Providers Date of Admission: 06/23/25 Date of [...] daily and advised to follow with PCP, JOAVNY in 1 week # History of CVA [...] Coeff of Luis Alberto 26.7 H, Plt [id number], MPV 10.6, Immature Gran % (Auto) 0.300, Neut % (Auto) 68.2, Lymph % (Auto) 14.5 L, Vance % (Auto) 15.5 H, Eos % (Auto) [...] Coeff of Luis Alberto 26.6 H, Plt [id number], MPV 11.1, Immature Gran % (Auto) 0.400, Neut % (Auto) 69.2, Lymph % (Auto) 12.5 L, Vance % (Auto) 15.6 H, Eos % (Auto) [...] Health Service Charges/Coding Visit Charges Inpatient E&M: 90569 Disch Hosp >30min 06/26/25 1130 <Electronically signed by Marshal Rebolledo MD> Cosigner Signature (if applicable): CC: Dr. Marshal Rebolledo MD; Dr. Ronaldo Pleitez MD~ Signed [facility] Work Phone: Evaluation note* Diagnosis Chronic midline low back pain without sciatica- Primary Spinal stenosis of lumbar region with neurogenic claudication Spinal stenosis, lumbar region, with neurogenic claudication [facility] Spinal stenosis of lumbar region with neurogenic claudication Spinal stenosis, lumbar region, with neurogenic claudication [facility] Diagnosis Anemia, unspecified type- Primary [...] Slow transit constipation [facility] Diagnosis Chronic bilateral low back pain without sciatica- Primary Spinal stenosis of lumbar region with neurogenic claudication Spinal stenosis, lumbar region, with neurogenic claudication [facility] Diagnosis Leg swelling- Primary Swelling [...] deficiency anemia, unspecified [facility] Diagnosis Spinal stenosis of lumbar region with neurogenic claudication- Primary Spinal stenosis, lumbar region, with neurogenic claudication Chronic bilateral low back pain without sciatica [facility] Spinal stenosis of lumbar region with neurogenic claudication- Primary Spinal stenosis, lumbar region, with neurogenic claudication Chronic bilateral low back pain without sciatica [facility] Diagnosis Spinal stenosis of lumbar region with neurogenic claudication Spinal stenosis, lumbar region, with neurogenic claudication [facility] Diagnosis Pes anserine bursitis- Primary Pes anserinus tendinitis or bursitis Acute pain of right knee Primary insomnia Persistent disorder of initiating or maintaining sleep Spinal stenosis of lumbar region with neurogenic claudication Spinal stenosis, lumbar region, with neurogenic claudication Paroxysmal atrial fibrillation (HCC) Atrial fibrillation Essential hypertension, benign [facility] Diagnosis Pes anserine bursitis Pes anserinus tendinitis or bursitis Acute pain of right knee [facility] Diagnosis Benign hypertension- Primary Essential hypertension, benign 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 Mixed hyperlipidemia PAF (paroxysmal atrial fibrillation) (HCC) Atrial fibrillation 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 with INR goal of 2.0-3.0 Long-term (current) use of anticoagulants RBBB Right bundle branch block PVC's (premature ventricular contractions) Other premature beats [facility] Diagnosis Spinal stenosis of lumbar region with neurogenic claudication- Primary Spinal stenosis, lumbar region, with neurogenic claudication Arthropathy of lumbar facet joint Lumbosacral spondylosis without myelopathy [facility] Diagnosis Chronic heart failure with preserved ejection fraction (HCC)- Primary Spinal stenosis of lumbar region with neurogenic claudication Spinal stenosis, lumbar region, with neurogenic claudication Arthropathy of lumbar facet joint Lumbosacral spondylosis without myelopathy [facility] Diagnosis Spinal stenosis of lumbar [...] spondylosis without myelopathy [facility] Diagnosis CHF (congestive heart failure), NYHA class I, acute on chronic, diastolic (HCC)- Primary [facility] Diagnosis Cerebrovascular accident (CVA), unspecified mechanism (HCC)- Primary Primary hypertension Unspecified essential hypertension Atrial fibrillation, unspecified type ([facility]) 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 Long-term (current) use of anticoagulants [facility] Diagnosis 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HCC)- Primary [...] of cerebrovascular disease [facility] Diagnosis Complete heart block (HCC)- Primary [...] Ankle edema, bilateral [facility] Diagnosis Pacemaker- Primary Cardiac pacemaker in situ PAF (paroxysmal atrial fibrillation) ([facility]) Atrial fibrillation [facility] Diagnosis Impending cerebrovascular accident (HCC)- Primary Unspecified transient cerebral ischemia Cerebral artery occlusion with cerebral infarction (HCC) Unspecified cerebral artery occlusion with cerebral infarction Numbness in cervical dermatome distribution Disturbance of skin sensation Paresthesia Disturbance of skin sensation [facility] Diagnosis Macrocytic anemia- Primary Unspecified deficiency anemia Macrocytic anemia Unspecified deficiency anemia [facility] Diagnosis Chronic heart failure with preserved [...] Essential hypertension, benign 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 Mixed hyperlipidemia PAF (paroxysmal atrial fibrillation) (HCC) Atrial fibrillation Pacemaker Cardiac pacemaker in situ CHB (complete heart block) (HCC) Atrioventricular block, complete 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 Long-term (current) use of anticoagulants [facility] Diagnosis 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 Chronic myeloid leukemia, without mention of having achieved remission Benign hypertension- Primary Essential hypertension, benign 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 Mixed hyperlipidemia PAF (paroxysmal atrial fibrillation) (HCC) Atrial fibrillation Pacemaker Cardiac pacemaker in situ CHB (complete heart block) (HCC) Atrioventricular block, complete 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 Long-term (current) use of anticoagulants [facility] Diagnosis 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 Chronic myeloid leukemia, without mention of having achieved remission [facility] Diagnosis Benign hypertension- Primary Essential hypertension, benign 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 Mixed hyperlipidemia PAF (paroxysmal atrial fibrillation) (HCC) Atrial fibrillation Pacemaker Cardiac pacemaker in situ CHB (complete heart block) (HCC) Atrioventricular block, complete 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 Long-term (current) use [...] Antibody response examination [facility] Diagnosis 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 Chronic myeloid leukemia, without mention of having achieved remission [facility] Diagnosis MDS (myelodysplastic syndrome) (HCC)- Primary Myelodysplastic syndrome, unspecified DVT of axillary vein, 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 [facility] Diagnosis Onset Date Resolution Status Feared condition not demonstrated acute Acquired immunocompromised state acute Cellulitis of right lower leg acute Complete heart block acute Coronary artery disease 2021 acut e Hypoxemia acute Pacemaker 2021 acute Sepsis acute CMML (chronic myelomonocytic leukemia) [facility] [place] Work Phone: Evaluation note* Diagnosis 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 Chronic myeloid leukemia, without mention of having achieved remission Right leg pain Pain in limb [facility] Diagnosis Onset Date Resolution Status Feared condition not demonstrated acute Acquired immunocompromised state acute Bacteremia due to Gram-negative bacteria acute Cellulitis of right lower leg acute Complete heart block acute Coronary artery disease 2021 acut e Hypoxemia acute Pacemaker 2021 acute Sepsis acute CMML (chronic myelomonocytic leukemia) [facility] [place] Work Phone: Evaluation note* Diagnosis Gram-negative bacteremia- Primary Bacteremia Cellulitis of right lower extremity Cellulitis and abscess of leg, except foot Acute on chronic diastolic congestive heart failure (HCC) Acute on chronic diastolic heart failure Venous stasis of both lower extremities PAF (paroxysmal atrial fibrillation) ([facility]) Atrial fibrillation Essential hypertension, benign 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) Chronic myeloid leukemia, without mention of having achieved remission Constipation due to slow transit Slow transit constipation 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 Acute deep vein thrombosis (DVT) of non-extremity vein [facility] Diagnosis Lymphedema of both lower extremities- Primary Chronic heart failure with preserved ejection fraction (HCC) PAF (paroxysmal atrial fibrillation) (HCC) Atrial fibrillation 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) Chronic myeloid leukemia, without mention of having achieved remission History of bacteremia Personal history of other infectious and parasitic disease Generalized osteoarthrosis Generalized osteoarthrosis, unspecified site [facility] Diagnosis Onset Date Resolution Status Feared condition not demonstrated acute Acquired immunocompromised state acute Bacteremia due to Gram-negative bacteria acute Coronary artery disease 2021 acut e Hypoxemia acute Pacemaker 2021 acute Sepsis acute CMML (chronic myelomonocytic leukemia) chronic Cellulitis of right lower leg resolved [facility] Work Phone: Evaluation note* Diagnosis Chronic atrial fibrillation (HCC)- Primary Atrial fibrillation Benign hypertension Essential hypertension, benign 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 Mixed hyperlipidemia [facility] current use of anticoagulant Long-term (current) use of anticoagulants Pacemaker Cardiac pacemaker in situ CHB (complete heart block) (HCC) Atrioventricular block, complete PVC's (premature ventricular contractions) Other premature beats [facility] Encounter for care of pacemaker- Primary [facility] Diagnosis Lymphedema of both lower extremities- Primary Chronic heart failure with preserved ejection fraction (HCC) Encounter for immunization Need for other specified prophylactic vaccination against single bacterial disease [facility] Diagnosis Lymphedema of both lower extremities Chronic heart failure with preserved ejection fraction (HCC) [facility] Acute [facility] Diagnosis Unstable gait Abnormality of gait Postural dizziness Dizziness and giddiness Confusion and disorientation Diplopia [facility] Diagnosis 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 Chronic myeloid leukemia, without mention of having achieved remission MDS (myelodysplastic syndrome) (HCC) Myelodysplastic syndrome, unspecified [facility] Diagnosis Lymphedema of both lower extremities Chronic heart failure with preserved ejection fraction (HCC) [facility] Diagnosis Lymphedema of both lower extremities Chronic heart failure with preserved ejection fraction (HCC) Hypothyroidism, unspecified type [facility] Diagnosis Right elbow pain- Primary Pain in joint, upper arm Monoarthritis of elbow, right [facility] Diagnosis 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 Chronic myeloid leukemia, without mention of having achieved remission MDS (myelodysplastic syndrome) (HCC) Myelodysplastic syndrome, unspecified [facility] Diagnosis Chronic myelomonocytic leukemia not having [...] Essential hypertension, benign 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 Mixed hyperlipidemia Pacemaker Cardiac pacemaker in situ CHB (complete heart block) (HCC) Atrioventricular block, complete Chronic atrial fibrillation (HCC) Atrial fibrillation 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 Long-term (current) use of anticoagulants [facility] Diagnosis Benign hypertension- Primary Essential hypertension, benign 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 Mixed hyperlipidemia Pacemaker Cardiac pacemaker in situ CHB (complete heart block) (HCC) Atrioventricular block, complete Chronic atrial fibrillation (HCC) Atrial fibrillation [facility] current use of anticoagulant Long-term (current) use [...] Abnormal chest sounds [facility] Diagnosis 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 Chronic myeloid leukemia, without mention of having achieved remission History of anemia Personal history of diseases of blood and blood-forming organs [facility] Diagnosis Benign hypertension- Primary Essential hypertension, benign 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 Mixed hyperlipidemia Pacemaker Cardiac pacemaker in situ CHB (complete heart block) (HCC) Atrioventricular block, complete Chronic atrial fibrillation (HCC) Atrial fibrillation [facility] current use of anticoagulant Long-term (current) use [...] Shortness of breath [facility] Diagnosis Encounter for care of pacemaker- Primary [facility] Diagnosis Chronic atrial fibrillation (HCC)- Primary Atrial fibrillation [facility] Diagnosis 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 Chronic myeloid leukemia, without mention of having achieved remission Macrocytic anemia Unspecified deficiency anemia [facility] Diagnosis 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) Chronic myeloid leukemia, without mention of having achieved remission MDS (myelodysplastic syndrome) (HCC) Myelodysplastic syndrome, unspecified [facility] Diagnosis 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) Chronic myeloid leukemia, without mention of having achieved remission MDS (myelodysplastic syndrome) (HCC) Myelodysplastic syndrome, unspecified [facility] Diagnosis 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) Chronic myeloid leukemia, without mention of having achieved remission MDS (myelodysplastic syndrome) (HCC) Myelodysplastic syndrome, unspecified [facility] Diagnosis Mixed hyperlipidemia Hypothyroidism, unspecified type [facility] Diagnosis Anemia due to chronic [...] Myelodysplastic syndrome, unspecified [facility] Diagnosis 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) Chronic myeloid leukemia, without mention of having achieved remission MDS (myelodysplastic syndrome) (HCC) Myelodysplastic syndrome, unspecified [facility] Diagnosis 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) Chronic myeloid leukemia, without mention of having achieved remission MDS (myelodysplastic syndrome) (HCC) Myelodysplastic syndrome, unspecified [facility] Diagnosis Lymphedema of right lower extremity- Primary Lymphedema of both lower extremities Pacemaker reprogramming/check Fitting and adjustment of cardiac pacemaker Benign hypertension- Primary Essential hypertension, benign 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 Mixed hyperlipidemia Pacemaker Cardiac pacemaker in situ CHB (complete heart block) (HCC) Atrioventricular block, complete Chronic atrial fibrillation (HCC) Atrial fibrillation MCFP current use of anticoagulant Long-term (current) use of anticoagulants [facility] Lymphedema of right lower extremity- Primary Pacemaker reprogramming/check Fitting and adjustment of cardiac pacemaker Benign hypertension- Primary Essential hypertension, benign 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 Mixed hyperlipidemia Pacemaker Cardiac pacemaker in situ CHB (complete heart block) (HCC) Atrioventricular block, complete Chronic atrial fibrillation (HCC) Atrial fibrillation MCFP current use of anticoagulant Long-term (current) use of anticoagulants [facility] Diagnosis Benign hypertension- Primary Essential hypertension, benign 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 Mixed hyperlipidemia Pacemaker Cardiac pacemaker in situ CHB (complete heart block) (HCC) Atrioventricular block, complete Chronic atrial fibrillation (HCC) Atrial fibrillation 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 Long-term (current) use of anticoagulants Pacemaker reprogramming/check Fitting and adjustment of cardiac pacemaker [facility] Diagnosis 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 Pacemaker reprogramming/check Fitting and adjustment of cardiac pacemaker [facility] Diagnosis 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) Chronic myeloid leukemia, without mention of having achieved remission MDS (myelodysplastic syndrome) (HCC) Myelodysplastic syndrome, unspecified Pacemaker reprogramming/check Fitting and adjustment of cardiac pacemaker [facility] Diagnosis Lymphedema of right lower [...] of unspecified site(s), without mention of complication 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 (current) use of anticoagulants Long-term (current) use [...] of unspecified site(s), without mention of complication 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 (current) use of anticoagulants Long-term (current) use [...] of cardiac pacemaker [facility] Diagnosis 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) Chronic myeloid leukemia, without mention of having achieved remission MDS (myelodysplastic syndrome) (HCC) Myelodysplastic syndrome, unspecified Pacemaker reprogramming/check Fitting and adjustment of cardiac pacemaker [facility] noteNo assessment information availableWAvita [facility] Work Phone: Evaluation note* Diagnosis Cellulitis [...] of cardiac pacemaker [facility]* Diagnosis Onset Date Resolution Status Admit Date Cellulitis of left leg acute Au marylou 2024 4:21pm Chronic anticoagulation acute A ugust 2024 4:21pm History of atrial fibrillation acute June 23, 2025 4:21pm History of chronic myeloid leukemia acute June 23 4:21pm History of stroke acute June 23, 2025 4:21pm [facility] Work Phone: Evaluation note* Diagnosis Cellulitis [...] of cardiac pacemaker [facility] Diagnosis 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) Chronic myeloid leukemia, without mention of having achieved remission MDS (myelodysplastic syndrome) (HCC) Myelodysplastic syndrome, unspecified Pacemaker reprogramming/check Fitting and adjustment of cardiac pacemaker [facility]* Diagnosis Cellulitis of left leg- Primary [...] of cardiac pacemaker [facility] Diagnosis Osteoarthritis, generalized- Primary Generalized osteoarthrosis, unspecified site Spinal stenosis of lumbar region with neurogenic claudication Spinal stenosis, lumbar region, with neurogenic claudication Pacemaker reprogramming/check Fitting and adjustment of cardiac pacemaker 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 Chronic myeloid leukemia, without mention of having achieved remission Pacemaker reprogramming/check Fitting and adjustment of cardiac pacemaker [facility] Diagnosis Chronic myelomonocytic leukemia not [...] ClinicHistory and physical note Author Mary Prather [facility] May 14, 2023 5:26pm Note Date/Time May 14, 2023 4:54p m [facility] Medical Records Department [address] [place] [address] H&P Exam - Hospitalist 05/14/23 1647 MR#: [id number] Acct: [id number] Name: SRINI LUIS Rep #:[id number] : 1935 87 From: Mary Prather MD PCP: Hamzah Pruitt Status:AD[facility] - General General Date of Admission: 05/14/23 Date of Service: 05/14/23 Chief Complaint: Chills, RLE pain HPI Narrative Mr. Luis is an 87-year-old male with history of CVA, CMML on chemotherapy [facility]/14/2023 due to weakness and rigors. [...] coughing. No other complaints at this time [facility] Medical History (Updated 05/14/23 @ 17:22 [...] (Auto) 89.7 H, Lymph% (Auto) 5.6 L, Vance % (Auto) 2.7, Eos % (Auto) 0.0, [...] fluid overload Charges/Coding Visit Charges Inpatient E&M: 83259 Init Hosp L3 05/14/23 1726 <Electronically signed by Mary Prather MD> Cosigner Signature (if applicable): CC: Dr. Mary Prather MD; Hamzah Pettyjuan~ Signed [facility] Work Phone: History and physical note Author Mary Prather [facility] Note Date/Time June 23, 2025 5: 14pm [facility] Medical Records Department [address] [place] [address] H&P Exam - Hospitalist 06/23/25 1621 MR#: [id number] Acct: [id number] Name: SRINI LUIS Rep #:[id number] : 1935 89 From: Mary Prather MD PCP: Dr. Ronaldo Pleitez MD Status:R EG ER Location: ED HPI - General General Date of Admission: 06/23/25 Date of Service: 06/23/25 Chief Complaint: Increasing left lower extremity swelling HPI Narrative SRINI LUIS, is a 89-year-old male history of CABG, CVA, pacemaker, A-fib on Xarelto, hypothyroidism, CML who presented to [facility] ED 06/23/2025 with worsening cellulitis of [...] chills, no other new or acute complaints [facility] Medical History Cellulitis CMML (chronic [...] Coeff of Luis Alberto 26.7 H, Plt Pkyvs008, MPV 10.6, Immature Gran % (Auto) 0.300, Neut % (Auto) 68.2, Lymph % (Auto) 14.5 L, Vance % (Auto) 15.5 H, Eos % (Auto) [...] Prather MD Charges/Coding Visit Charges Inpatient E&M: 44937 Init Hosp L2 06/23/25 6666 <Electronically signed by Mary Prather MD> Cosigner Signature (if applicable): CC: Dr. Mary Prather MD; Dr. Ronaldo Pleitez MD~ Signed [facility] Work Phone: Hospital Discharge instructionsAdditional Instructions [...] the leg, fatigue, fevers, chills, nausea or vomiting.[facility] Work Phone: Hospital Discharge instructionsAdditional Instructions Date of Discharge: [facility]/25[facility] Work Phone: Reason for referral (narrative)* Diagnostic Procedure Only (Routine) - Closed Specialty Diagnoses / Procedures Referred By Contac t Referred To Contact XR IMAGING Diagnoses Spinal stenosis of lumbar region with neurogenic claudication Procedures XR LUMBAR MOTION 4V AP/LAT/ FLEX/EXT RADEX SPINE LUMBOSACRAL MINIMUM 4 VIEWS Laron Fortune PA-C [address] [place] [address] Xr Imaging Referral ID Status Reason Start Date Expiration Date V isits Requested Visits Authorized [id number] Closed Auto-Generate d Referral 02/28/2022 03/30/2023 1 1 [facility] for referral (narrative)* Diagnostic Procedure Only (Routine) - Pending Review Specialty Diagnoses / Procedures Referred By Contac t Referred To Contact XR IMAGING Diagnoses Pes anserine bursitis Acute pain of right knee Procedures XR KNEE LIMITED 2V AP/LAT RIGHT RADIOLOGIC EXAMINATION KNEE 1/2 VIEWS Israel Pruitt DO [address] [place] [address] Xr Imaging Referral ID Status Reason Start Date Expiration Date Visits Requested Visits Authorized [id number] Pending Review Auto-Generat ed Referral 05/29/2022 06/28/2023 [...] HIGH COMPLEX 45 MINS Israel Pruitt DO [address] [place] [address] [facility] [place] [address] [place] [address] Referral ID Status Reason Start Date Expiration Date Visits Requested Visits Authorized [id number] Pending Review Auto-Generat ed Referral 05/29/2022 05/29/2023 1 1 [facility] for referral (narrative)* Diagnostic Procedure Only (Routine) - Closed Specialty Diagnoses / Procedures Referred By Contac t Referred To Contact XR IMAGING Diagnoses Pes anserine bursitis Acute pain of right knee Procedures XR KNEE LIMITED 2V AP/LAT RIGHT RADIOLOGIC EXAMINATION KNEE 1/2 VIEWS Israel Pruitt DO [address] [place] [address] Xr Imaging Referral ID Status Reason Start Date Expiration Date V isits Requested Visits Authorized [id number] Closed Auto-Generate d Referral 05/29/2022 06/28/2023 1 1 [facility] for referral (narrative)* Outpatient Procedure (Routine) - Closed Specialty Diagnoses / Procedures Referred By Contac t Referred To Contact [facility] Diagnoses Benign hypertension Procedures ECG COMPLETE ECG ROUTINE ECG W/LEAST 12 LDS W/I&R Iram Johnson APRN.TELEPHONE ORDER SUPERVISOR [address] [place] [address] [facility] [place] [address] [place] [address] Referral ID Status Reason Start Date Expiration Date V isits Requested Visits Authorized [id number] Closed Auto-Generate d Referral 06/06/2022 06/06/2023 1 [...] VEINS COMPLETE BILATERAL STUDY Israel Pruitt, DO [address] [place] [address] Us Imaging Referral ID Status Reason Start Date Expiration Date V isits Requested Visits Authorized [id number] Closed Auto-Generate d Referral 03/25/2023 04/23/2024 1 1 [facility] for referral (narrative)* Outpatient Procedure (Urgent) - Pending Review Specialty Diagnoses / Procedures Referred By Contac t Referred To Contact [facility] Diagnoses 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) Arm swelling Procedures US ARM VEIN DVT UNL VAS LAB DUP-SCAN XTR VEINS UNILATERAL/LIMITED STUDY Baljinder Galloway DO [address] [facility] [place] [address] [facility] [place] [address] [place] [address] Referral ID Status Reason Start Date Expiration Date Visits Requested Visits Authorized [id number] Pending Review Auto-Generat ed Referral 05/05/2023 05/04/2024 1 1 [facility] for referral (narrative)* Diagnostic Procedure Only (Urgent) - Authorized Specialty Diagnoses / Procedures Referred By Contac t Referred To Contact US IMAGING Diagnoses Right leg pain Procedures US DVT LOWER RIGHT DUP-SCAN XTR VEINS UNILATERAL/LIMITED STUDY Israel Gates MD [address] [place] [address] Us Imaging Referral ID Status Reason Start Date Expiration Date Visits Requested Visits Authorized [id number] Authorized Auto-Generat ed Referral 05/14/2023 06/12/2024 1 1 [facility] for referral (narrative)* Diagnostic Procedure Only (Routine) - Closed Specialty Diagnoses / Procedures Referred By Contac t Referred To Contact XR IMAGING Diagnoses Right elbow pain Monoarthritis of elbow, right Procedures XR ELBOW SPECIAL VIEWS AP/LAT/OTHER RIGHT RADEX ELBOW COMPLETE MINIMUM 3 VIEWS Ronaldo Pleitez MD [address] [place] [address] [place] [address] Referral ID Status Reason Start Date Expiration Date V isits Requested Visits Authorized [id number] Closed Auto-Generate d Referral 12/23/2023 01/21/2025 1 1 [facility] for referral (narrative)* Diagnostic Procedure Only (Routine) - Closed Specialty Diagnoses / Procedures [facility] To Contact X[facility] Diagnoses Right elbow pain Monoarthritis of elbow, right Procedures XR ELBOW SPECIAL VIEWS AP/LAT/OTHER RIGHT RADEX ELBOW COMPLETE MINIMUM 3 VIEWS Ronaldo Pleitez MD [address] [place] [address] [place] [address] Referral ID Status Reason Start Date Expiration Date V isits Requested Visits Authorized [id number] Closed Auto-Generate d Referral 12/23/2023 01/21/2025 1 1 [facility] for referral (narrative)* Diagnostic Procedure Only (Routine) - New Request Specialty Diagnoses / Procedures Referred By Contac t Referred To Contact [facility]LECULAR [facility] Diagnoses 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 Encounter for screening for cardiovascular disorders SOB (shortness of breath) Procedures NM CARDIAC PERF STRESS/PHARM MYOCARDIAL SPECT MULTIPLE STUDIES Iram Johnson APRN.TELEPHONE ORDER SUPERVISOR [address] [facility] [address] [place] [address] [facility] [address] [place] [address] Referral ID Status Reason Start Date Expiration Date Visits Requested Visits Authorized [id number] New Request Auto-Generat ed Referral 10/27/2025 1 1 [facility] for referral (narrative)No reason for referral information availableWAvita [facility] Work Phone: Reason for visit Narrative* Diagnostic Procedure Only (Routine) - Closed Specialty Diagnoses / Procedures Referred By Contmar t Referred To Contact XR IMAGING Diagnoses Spinal stenosis of lumbar region with neurogenic claudication Procedures XR LUMBAR MOTION 4V AP/LAT/ FLEX/EXT RADEX SPINE LUMBOSACRAL MINIMUM 4 VIEWS Laron Fortune PA-C [address] [place] [address] Xr Imaging Referral ID Status Reason Start Date Expiration Date V isits Requested Visits Authorized [id number] Closed Auto-Generate d Referral 02/28/2022 03/30/2023 1 1 [facility] for visit Narrative* Diagnostic Procedure Only (Routine) - Closed Specialty Diagnoses / Procedures Referred By Contac t Referred To Contact XR IMAGING Diagnoses Pes anserine bursitis Acute pain of right knee Procedures XR KNEE LIMITED 2V AP/LAT RIGHT RADIOLOGIC EXAMINATION KNEE 1/2 VIEWS Israel Pruitt DO [address] [address] Xr Imaging Referral ID Status Reason Start Date Expiration Date V isits Requested Visits Authorized [id number] Closed Auto-Generate d Referral 05/29/2022 06/28/2023 1 1 [facility] for visit Narrative* Diagnostic Procedure Only (Routine) - Closed Specialty Diagnoses / Procedures Referred By Carissa diaz Referred To Contact XR IMAGING Diagnoses Right elbow pain Monoarthritis of elbow, right Procedures XR ELBOW SPECIAL VIEWS AP/LAT/OTHER RIGHT RADEX ELBOW COMPLETE MINIMUM 3 VIEWS Ronaldo Pleitez MD [address] [place] [address] [place] [address] Referral ID Status Reason Start Date Expiration Date V isits Requested Visits Authorized [id number] Closed Auto-Generate d Referral 12/23/2023 01/21/2025 1 1 [facility] for visit Narrative* Divide Prior Authorization (Routine) - Authorized Specialty Diagnoses / Procedures Referred By Carissa diaz Referred To Contact Diagnoses 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) Procedures DARBEPOETIN MARILU, NON-ESRD Baljinder Galloway, DO [address] [place] [address] Phone: tel: fax: Hematology/Oncology [address] [place] [address] Phone: tel: fax: Referral ID Status Reason Start Date Expiration Date V isits Requested Visits Authorized [id number] Authorized 11/22/2024 05/09/2025 12 12 [facility] for visit Narrative* Divide Prior Authorization (Routine) - Authorized Specialty Diagnoses / Procedures Referred By Carissa diaz Referred To Contact Diagnoses 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) Procedures DARBEPOETIN MARILU, NON-ESRD Baljinder Galloway, DO [address] [facility] [place] [address] Phone: tel: fax: Hematology/Oncology [address] [place] [address] Phone: tel: fax: Referral ID Status Reason Start Date Expiration Date V isits Requested Visits Authorized [id number] Authorized 11/22/2024 05/09/2025 12 12 [facility] Chief Complaint Chief Complaint Description Start Date right ankle pain Preliminary chief co mplaint data, not yet signed by the author as of Instructions Instruction Description Start Date CompletedPatient advised to follow-up with Primary Care Physician for BMI management. 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 Advance Directive(s) 05/30/2022 10:37 AM Advance Directive(s) 02/01/2021 2:20 PM Documents on File Type Date Recorded 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 Advance Directive(s) 05/30/2022 10:37 AM [...] Documents on File Type Date Recorded 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 Advance Directive(s) 05/30/2022 10:37 AM Latest Code Status on File Code Status Date Activated Date Inactivated Comments Full Code 09/15/2022 5:52 PM 09/18/2022 10:33 PM Full Code 08/27/2022 8:34 AM 09/05/2022 5:31 PM Full Code 08/22/2022 6:39 PM 08/26/2022 5:09 PM Advance Directive Response Recorded Date/ Time Name of Medical Power of Director Blood Bank Liza Mark May 14, 2023 12:18pm Living Will Yes May 14, 2023 1 2:18pm Power of Director Blood Bank Yes May 14, 2023 12:18pm Advance Directive Response Recorded Date/ Time Name of Medical Power of Director Blood Bank Liza Mark May 14, 2023 6:22pm Living Will Yes May 14, 2023 6 :22pm Power of Director Blood Bank Yes May 14, 2023 6:22pm Latest Code [...] Do you have a Healthcare Power of Director Blood Bank? Yes June 18, 2025 9:25pm Advance Directive Response Recorded Date/ Time Do you have a Healthcare Power of Director Blood Bank? Yes June 18, 2025 9:25pm Do you have a Healthcare Power of Director Blood Bank? Yes June 23, 2025 1:43pm Name of Medical Power of Director Blood Bank liza mark June 23, 2025 1:43pm Advance Directive Response Recorded Date/ Time Do you have a Healthcare Power of Director Blood Bank? Yes June 18, 2025 9:25pm Do you have a Healthcare Power of Director Blood Bank? Yes June 23, 2025 5:30pm Name of Medical Power of Director Blood Bank liza mark June 23, 2025 1:43pm Date [...] W/O CONTRAST MATERIAL Laron Fortune PA-C [address] [place] [address] Mr Imaging Referral ID Status Reason Start Date Expiration Date Visits Requested Visits Authorized [id number] Authorized Auto-Generat ed Referral 05/08/2022 06/07/2023 1 1 Referral ID Status Reason Start Date Expiration Date V isits Requested Visits Authorized [id number] Closed Auto-Generate d Referral 05/08/2022 06/07/2023 1 1 Specialty Diagnoses / Procedures Referred By Contac t Referred To Contact CT IMAGING Diagnoses Unstable gait Postural dizziness Confusion and disorientation Diplopia Procedures CT BRAIN WO IVCON CT HEAD/BRAIN W/O CONTRAST MATERIAL Israel Pruitt, [address] [place] [address] Ct Imaging Referral ID Status Reason Start Date Expiration Date Visits Requested Visits Authorized [id number] Authorized Auto-Generat ed Referral 04/20/2023 05/19/2024 1 1 Specialty Diagnoses / Procedures Referred By Contac t Referred To Contact CT IMAGING Diagnoses Unstable gait Postural dizziness Confusion and disorientation Diplopia Procedures CT BRAIN WO IVCON CT HEAD/BRAIN W/O CONTRAST MATERIAL Israel Pruitt DO [address] [place] [address] Ct Imaging [facility] Referral ID Status Reason Start Date Expiration Date V isits Requested Visits Authorized [id number] Closed Auto-Generate d Referral 04/20/2023 05/19/2024 1 [...] leukemia) Chief Complaint ATHEROEMBOLISM R PATO T CORRECTION LAB WORK CORRECTION LAB WORK SEPSIS, CELLULITIS, CHF, HYPOXEMIA, CMML SEPSIS, CELLULITIS, CHF, HYPOXEMIA, CMML SEPSIS, CELLULITIS, CHF, HYPOXEMIA, CMML SEPSIS, CELLULITIS, CHF, HYPOXEMIA, CMML SEPSIS, CELLULITIS, CHF, HYPOXEMIA, CMML 1 UNIT PRBC CORRECTION LAB WORK Reason for Visit Feared condition [...] OT COMM REINTEGRATION Homer Soto MD [address] [id number] Rosa Abrams OT/L Referral ID Status Reason Start Date Expiration Date V isits Requested Visits Authorized [id number] Authorized 11/09/2021 11/08/2022 99 99 Reason Comments Physical Therapy Specialty Diagnoses / Procedures Referred By Contac t Referred To Contact PHYSICAL THERAPY Diagnoses Spinal stenosis of lumbar region with neurogenic claudication Procedures CONSULT TO PHYSICAL THERAPY Laron Fortune, PA-C [address] [place] [address] Sanket Solo, PT [address] [place] [address] Referral ID Status Reason Start Date Expiration Date V isits Requested Visits Authorized [id number] Authorized 02/28/2022 11/08/2022 99 99 Reason For [...] W/O CONTRAST MATERIAL Laron Fortune PA-C [address] [place] [address] Mr Imaging Referral ID Status Reason Start Date Expiration Date V isits Requested Visits Authorized [id number] Closed Auto-Generate d Referral 05/08/2022 06/07/2023 1 [...] Reason Comments Consult Reason Comments Hospital F/U [facility] 826-2 2 to 07-09-22-CHF Reason Onset Date [...] 10/23/2022 Specialty Diagnoses / Procedures [facility] Referred To Contact Diagnoses Macrocytic anemia Procedures DIAGNOSTIC BONE MARROW BIOPSIES & ASPIRATIONS DIAGNOSTIC BONE MARROW BIOPSY(IES) AND ASPIRATION(S) [place] [facility] [address] [place] [address] Referral ID Status Reason Start Date Expiration Date Visits Re quested Visits Authorized [id number] 1 1 Reason Comments Established Patient Reason Comments ak HFC question Reason Onset Date Comments Refill Request 11/20/2022 Reason Comments Chemotherapy Education Class Specialty Diagnoses / Procedures Referred By [facility] Referred To Contact Diagnoses 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) Procedures INSJ PRPH CTR VAD W/SUBQ PORT AGE 5 YR/> PERIPHERAL INSERTION CV CATHETER WITH PORT, OVER 4 YRS [place] Interventional Radiology [address] [place] [address] Referral ID Status Reason Start Date Expiration Date Visits Re quested Visits Authorized [id number] 1 1 Reason Comments Recheck 3 months F/U Reason Comments Chemotherapy Treatment Specialty Diagnoses / Procedures Referred By [facility] Referred To Contact Diagnoses 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 05/06/2023 Telephonic outre ach Reason Comments Imm/Inj immunization Reason Comments hepatitis B titer results/order Reason Comments Results DVT Reason Comments Patient Question Patient Update Update regarding dec ision making regarding patient's right-sided peripheral CV catheter with port with recent diagnosis right IJ DVT. 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 06/04/2023 Telephonic outre ach Reason Comments Establish Care From Taylor Pruitt DO. Reason Onset Date Comments [facility] 07/02/2023 Telephonic outre ach Reason Onset Date Comments [facility] 07/29/2023 Telephonic outre ach Reason Onset Date Comments [facility] 09/07/2023 Telephonic outre ach Reason Comments Radiology CT Specialty Diagnoses / Procedures Referred By Carissa t Referred To Contact CT IMAGING Diagnoses Unstable gait Postural dizziness Confusion and disorientation Diplopia Procedures CT BRAIN WO IVCON CT HEAD/BRAIN W/O CONTRAST MATERIAL Israel Pruitt, [address] [place] [address] [place] [address] Referral ID Status Reason Start Date Expiration Date V isits Requested Visits Authorized [id number] Closed Auto-Generate d Referral 04/20/2023 05/19/2024 1 1 Reason Comments Patient Update Surgical site ( port removal ) Reason Onset Date Comments [facility] 10/07/2023 Telephonic outre ach Reason Onset Date Comments Refill Request 12/18/2023 Reason Comments Right arm pain Reason Onset Date Comments [facility] 01/01/2024 Telephonic outre ach Reason Comments Medicare Wellness Exam Reason Onset Date Comments [facility] 02/15/2024 Telephonic outre ach Reason Onset Date Comments [facility] 03/14/2024 Telephonic outre ach Reason Onset Date Comments [facility] 03/15/2024 Telephonic outre ach Reason Onset Date Comments [facility] 04/12/2024 Telephonic outre ach Reason Onset Date Comments [facility] 05/10/2024 Telephonic outre ach Reason Onset Date Comments [facility] 05/11/2024 Telephonic outre ach Reason Onset Date Comments Population Health Navigation Outreach 05/25/2024 Med Adherence ([place]) Reason Onset Date Comments [facility] 06/08/2024 Telephonic outre ach Reason Onset Date Comments [facility] 06/09/2024 Telephonic outre ach Reason Comments Remote Pacemaker Follow Up Reason Onset Date Comments [facility] 07/04/2024 Telephonic outre ach Reason Onset Date Comments [facility] 07/05/2024 Telephonic outre ach Reason Comments F/U 6 Month Reason Onset Date Comments [facility] 08/02/2024 Telephonic outre ach Reason Onset Date Comments [facility] 08/30/2024 Telephonic outre ach Reason Onset Date Comments 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) Procedures DARBEPOETIN MARILU, NON-ESRD Baljinder Galloway, DO [address] [facility] [place] [address] Phone: tel: fax: Hematology/Oncology [address] [place] [address] Phone: tel: fax: Reason Onset Date Comments Refill Request 12/23/2024 Reason Comments Medicare Wellness Exam Specialty Diagnoses / Procedures Referred By Carissa t Referred To Contact Diagnoses 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) Procedures DARBEPOETIN MARILU, NON-ESRD Baljinder Galloway DO [address] [place] [address] Phone: tel: fax: Hematology/Oncology [address] [place] [address] Phone: tel: fax: Reason Comments Right leg Reason Comments Recheck Referral ID Status Reason Start Date Expiration Date V isits Requested Visits Authorized [id number] Authorized 11/22/2024 11/22/2025 26 26 Reason Comments [...] section and content) DATE CREATED AUTHOR 08/18/2021 [facility] DATE CREATED AUTHOR AUTHOR'S ORGANIZ ATION 02/04/2022 [facility] DATE CREATED AUTHOR AUTHOR'S ORGANIZ ATION 08/10/2022 [facility] DATE CREATED AUTHOR AUTHOR'S ORGANIZ ATION 04/21/2023 [facility] DATE CREATED AUTHOR AUTHOR'S ORGANIZ ATION 07/17/2025 [facility] DATE CREATED AUTHOR AUTHOR'S ORGANIZ ATION 07/26/2025 [facility] DATE CREATED AUTHOR AUTHOR'S ORGANIZ ATION 07/27/2025 [facility] Source Comments (unrecognize d section and content) In the event this informatio n is protected by the Federal Confidentiality of Alcohol and Drug Abuse Patient Records regulations: The Federal rules restrict any use of the information to criminally investigate or prosecute any alcohol or drug abuse patient.[facility] the event this information is protected by the Federal Confidentiality of Alcohol and Drug Abuse Patient Records regulations: The Federal rules restrict any use of the information to criminally investigate or prosecute any alcohol or drug abuse patient.[facility] the event this information is protected by the Federal Confidentiality of Alcohol and Drug Abuse Patient Records regulations: The Federal rules restrict any use of the information to criminally investigate or prosecute any alcohol or drug abuse patient.[facility] the event this information is protected by the Federal Confidentiality of Alcohol and Drug Abuse Patient Records regulations: The Federal rules restrict any use of the information to criminally investigate or prosecute any alcohol or drug abuse patient.[facility] the event this information is protected by the Federal Confidentiality of Alcohol and Drug Abuse Patient Records regulations: The Federal rules restrict any use of the information to criminally investigate or prosecute any alcohol or drug abuse patient.[facility] the event this information is protected by the Federal Confidentiality of Alcohol and Drug Abuse Patient Records regulations: The Federal rules restrict any use of the information to criminally investigate or prosecute any alcohol or drug abuse patient.[facility] the event this information is protected by the Federal Confidentiality of Alcohol and Drug Abuse Patient Records regulations: The Federal rules restrict any use of the information to criminally investigate or prosecute any alcohol or drug abuse patient.[facility] the event this information is protected by the Federal Confidentiality of Alcohol and Drug Abuse Patient Records regulations: The Federal rules restrict any use of the information to criminally investigate or prosecute any alcohol or drug abuse patient.[facility] the event this information is protected by the Federal Confidentiality of Alcohol and Drug Abuse Patient Records regulations: The Federal rules restrict any use of the information to criminally investigate or prosecute any alcohol or drug abuse patient.[facility] the event this information is protected by the Federal Confidentiality of Alcohol and Drug Abuse Patient Records regulations: The Federal rules restrict any use of the information to criminally investigate or prosecute any alcohol or drug abuse patient.[facility] the event this information is protected by the Federal Confidentiality of Alcohol and Drug Abuse Patient Records regulations: The Federal rules restrict any use of the information to criminally investigate or prosecute any alcohol or drug abuse patient.[facility] the event this information is protected by the Federal Confidentiality of Alcohol and Drug Abuse Patient Records regulations: The Federal rules restrict any use of the information to criminally investigate or prosecute any alcohol or drug abuse patient.[facility] the event this information is protected by the Federal Confidentiality of Alcohol and Drug Abuse Patient Records regulations: The Federal rules restrict any use of the information to criminally investigate or prosecute any alcohol or drug abuse patient.[facility] the event this information is protected by the Federal Confidentiality of Alcohol and Drug Abuse Patient Records regulations: The Federal rules restrict any use of the information to criminally investigate or prosecute any alcohol or drug abuse patient.[facility] the event this information is protected by the Federal Confidentiality of Alcohol and Drug Abuse Patient Records regulations: The Federal rules restrict any use of the information to criminally investigate or prosecute any alcohol or drug abuse patient.[facility]In the event this information is protected by the Federal Confidentiality of Alcohol and Drug Abuse Patient Records regulations: The Federal rules restrict any use of the information to criminally investigate or prosecute any alcohol or drug abuse patient.[facility]In the event this information is protected by the Federal Confidentiality of Alcohol and Drug Abuse Patient Records regulations: The Federal rules restrict any use of the information to criminally investigate or prosecute any alcohol or drug abuse patient.[facility] the event this information is protected by the Federal Confidentiality of Alcohol and Drug Abuse Patient Records regulations: The Federal rules restrict any use of the information to criminally investigate or prosecute any alcohol or drug abuse patient.[facility]In the event this information is protected by the Federal Confidentiality of Alcohol and Drug Abuse Patient Records regulations: The Federal rules restrict any use of the information to criminally investigate or prosecute any alcohol or drug abuse patient.[facility]In the event this information is protected by the Federal Confidentiality of Alcohol and Drug Abuse Patient Records regulations: The Federal rules restrict any use of the information to criminally investigate or prosecute any alcohol or drug abuse patient.[facility]In the event this information is protected by the Federal Confidentiality of Alcohol and Drug Abuse Patient Records regulations: The Federal rules restrict any use of the information to criminally investigate or prosecute any alcohol or drug abuse patient.[facility]In the event this information is protected by the Federal Confidentiality of Alcohol and Drug Abuse Patient Records regulations: The Federal rules restrict any use of the information to criminally investigate or prosecute any alcohol or drug abuse patient.[facility]In the event this information is protected by the Federal Confidentiality of Alcohol and Drug Abuse Patient Records regulations: The Federal rules restrict any use of the information to criminally investigate or prosecute any alcohol or drug abuse patient.[facility]In the event this information is protected by the Federal Confidentiality of Alcohol and Drug Abuse Patient Records regulations: The Federal rules restrict any use of the information to criminally investigate or prosecute any alcohol or drug abuse patient.[facility]In the event this information is protected by the Federal Confidentiality of Alcohol and Drug Abuse Patient Records regulations: The Federal rules restrict any use of the information to criminally investigate or prosecute any alcohol or drug abuse patient.[facility]In the event this information is protected by the Federal Confidentiality of Alcohol and Drug Abuse Patient Records regulations: The Federal rules restrict any use of the information to criminally investigate or prosecute any alcohol or drug abuse patient.[facility]In the event this information is protected by the Federal Confidentiality of Alcohol and Drug Abuse Patient Records regulations: The Federal rules restrict any use of the information to criminally investigate or prosecute any alcohol or drug abuse patient.[facility]In the event this information is protected by the Federal Confidentiality of Alcohol and Drug Abuse Patient Records regulations: The Federal rules restrict any use of the information to criminally investigate or prosecute any alcohol or drug abuse patient.[facility]In the event this information is protected by the Federal Confidentiality of Alcohol and Drug Abuse Patient Records regulations: The Federal rules restrict any use of the information to criminally investigate or prosecute any alcohol or drug abuse patient.[facility]In the event this information is protected by the Federal Confidentiality of Alcohol and Drug Abuse Patient Records regulations: The Federal rules restrict any use of the information to criminally investigate or prosecute any alcohol or drug abuse patient.[facility]In the event this information is protected by the Federal Confidentiality of Alcohol and Drug Abuse Patient Records regulations: The Federal rules restrict any use of the information to criminally investigate or prosecute any alcohol or drug abuse patient.[facility]In the event this information is protected by the Federal Confidentiality of Alcohol and Drug Abuse Patient Records regulations: The Federal rules restrict any use of the information to criminally investigate or prosecute any alcohol or drug abuse patient.[facility]In the event this information is protected by the Federal Confidentiality of Alcohol and Drug Abuse Patient Records regulations: The Federal rules restrict any use of the information to criminally investigate or prosecute any alcohol or drug abuse patient.[facility]In the event this information is protected by the Federal Confidentiality of Alcohol and Drug Abuse Patient Records regulations: The Federal rules restrict any use of the information to criminally investigate or prosecute any alcohol or drug abuse patient.[facility]In the event this information is protected by the Federal Confidentiality of Alcohol and Drug Abuse Patient Records regulations: The Federal rules restrict any use of the information to criminally investigate or prosecute any alcohol or drug abuse patient.[facility]In the event this information is protected by the Federal Confidentiality of Alcohol and Drug Abuse Patient Records regulations: The Federal rules restrict any use of the information to criminally investigate or prosecute any alcohol or drug abuse patient.[facility]In the event this information is protected by the Federal Confidentiality of Alcohol and Drug Abuse Patient Records regulations: The Federal rules restrict any use of the information to criminally investigate or prosecute any alcohol or drug abuse patient.[facility]In the event this information is protected by the Federal Confidentiality of Alcohol and Drug Abuse Patient Records regulations: The Federal rules restrict any use of the information to criminally investigate or prosecute any alcohol or drug abuse patient.[facility]In the event this information is protected by the Federal Confidentiality of Alcohol and Drug Abuse Patient Records regulations: The Federal rules restrict any use of the information to criminally investigate or prosecute any alcohol or drug abuse patient.[facility]In the event this information is protected by the Federal Confidentiality of Alcohol and Drug Abuse Patient Records regulations: The Federal rules restrict any use of the information to criminally investigate or prosecute any alcohol or drug abuse patient.[facility]In the event this information is protected by the Federal Confidentiality of Alcohol and Drug Abuse Patient Records regulations: The Federal rules restrict any use of the information to criminally investigate or prosecute any alcohol or drug abuse patient.[facility]In the event this information is protected by the Federal Confidentiality of Alcohol and Drug Abuse Patient Records regulations: The Federal rules restrict any use of the information to criminally investigate or prosecute any alcohol or drug abuse patient.[facility]In the event this information is protected by the Federal Confidentiality of Alcohol and Drug Abuse Patient Records regulations: The Federal rules restrict any use of the information to criminally investigate or prosecute any alcohol or drug abuse patient.[facility]In the event this information is protected by the Federal Confidentiality of Alcohol and Drug Abuse Patient Records regulations: The Federal rules restrict any use of the information to criminally investigate or prosecute any alcohol or drug abuse patient.[facility]In the event this information is protected by the Federal Confidentiality of Alcohol and Drug Abuse Patient Records regulations: The Federal rules restrict any use of the information to criminally investigate or prosecute any alcohol or drug abuse patient.[facility]In the event this information is protected by the Federal Confidentiality of Alcohol and Drug Abuse Patient Records regulations: The Federal rules restrict any use of the information to criminally investigate or prosecute any alcohol or drug abuse patient.[facility]In the event this information is protected by the Federal Confidentiality of Alcohol and Drug Abuse Patient Records regulations: The Federal rules restrict any use of the information to criminally investigate or prosecute any alcohol or drug abuse patient.[facility]In the event this information is protected by the Federal Confidentiality of Alcohol and Drug Abuse Patient Records regulations: The Federal rules restrict any use of the information to criminally investigate or prosecute any alcohol or drug abuse patient.[facility]In the event this information is protected by the Federal Confidentiality of Alcohol and Drug Abuse Patient Records regulations: The Federal rules restrict any use of the information to criminally investigate or prosecute any alcohol or drug abuse patient.[facility]In the event this information is protected by the Federal Confidentiality of Alcohol and Drug Abuse Patient Records regulations: The Federal rules restrict any use of the information to criminally investigate or prosecute any alcohol or drug abuse patient.[facility]In the event this information is protected by the Federal Confidentiality of Alcohol and Drug Abuse Patient Records regulations: The Federal rules restrict any use of the information to criminally investigate or prosecute any alcohol or drug abuse patient.[facility]In the event this information is protected by the Federal Confidentiality of Alcohol and Drug Abuse Patient Records regulations: The Federal rules restrict any use of the information to criminally investigate or prosecute any alcohol or drug abuse patient.[facility]In the event this information is protected by the Federal Confidentiality of Alcohol and Drug Abuse Patient Records regulations: The Federal rules restrict any use of the information to criminally investigate or prosecute any alcohol or drug abuse patient.[facility]In the event this information is protected by the Federal Confidentiality of Alcohol and Drug Abuse Patient Records regulations: The Federal rules restrict any use of the information to criminally investigate or prosecute any alcohol or drug abuse patient.[facility]In the event this information is protected by the Federal Confidentiality of Alcohol and Drug Abuse Patient Records regulations: The Federal rules restrict any use of the information to criminally investigate or prosecute any alcohol or drug abuse patient.[facility]In the event this information is protected by the Federal Confidentiality of Alcohol and Drug Abuse Patient Records regulations: The Federal rules restrict any use of the information to criminally investigate or prosecute any alcohol or drug abuse patient.[facility] HospitalIn the event this information is protected by the Federal Confidentiality of Alcohol and Drug Abuse Patient Records regulations: The Federal rules restrict any use of the information to criminally investigate or prosecute any alcohol or drug abuse patient.[facility]In the event this information is protected by the Federal Confidentiality of Alcohol and Drug Abuse Patient Records regulations: The Federal rules restrict any use of the information to criminally investigate or prosecute any alcohol or drug abuse patient.[facility]In the event this information is protected by the Federal Confidentiality of Alcohol and Drug Abuse Patient Records regulations: The Federal rules restrict any use of the information to criminally investigate or prosecute any alcohol or drug abuse patient.[facility]In the event this information is protected by the Federal Confidentiality of Alcohol and Drug Abuse Patient Records regulations: The Federal rules restrict any use of the information to criminally investigate or prosecute any alcohol or drug abuse patient.[facility]In the event this information is protected by the Federal Confidentiality of Alcohol and Drug Abuse Patient Records regulations: The Federal rules restrict any use of the information to criminally investigate or prosecute any alcohol or drug abuse patient.[facility]In the event this information is protected by the Federal Confidentiality of Alcohol and Drug Abuse Patient Records regulations: The Federal rules restrict any use of the information to criminally investigate or prosecute any alcohol or drug abuse patient.[facility]In the event this information is protected by the Federal Confidentiality of Alcohol and Drug Abuse Patient Records regulations: The Federal rules restrict any use of the information to criminally investigate or prosecute any alcohol or drug abuse patient.[facility]In the event this information is protected by the Federal Confidentiality of Alcohol and Drug Abuse Patient Records regulations: The Federal rules restrict any use of the information to criminally investigate or prosecute any alcohol or drug abuse patient.[facility]In the event this information is protected by the Federal Confidentiality of Alcohol and Drug Abuse Patient Records regulations: The Federal rules restrict any use of the information to criminally investigate or prosecute any alcohol or drug abuse patient.[facility]In the event this information is protected by the Federal Confidentiality of Alcohol and Drug Abuse Patient Records regulations: The Federal rules restrict any use of the information to criminally investigate or prosecute any alcohol or drug abuse patient.[facility]In the event this information is protected by the Federal Confidentiality of Alcohol and Drug Abuse Patient Records regulations: The Federal rules restrict any use of the information to criminally investigate or prosecute any alcohol or drug abuse patient.[facility]In the event this information is protected by the Federal Confidentiality of Alcohol and Drug Abuse Patient Records regulations: The Federal rules restrict any use of the information to criminally investigate or prosecute any alcohol or drug abuse patient.[facility]In the event this information is protected by the Federal Confidentiality of Alcohol and Drug Abuse Patient Records regulations: The Federal rules restrict any use of the information to criminally investigate or prosecute any alcohol or drug abuse patient.[facility]In the event this information is protected by the Federal Confidentiality of Alcohol and Drug Abuse Patient Records regulations: The Federal rules restrict any use of the information to criminally investigate or prosecute any alcohol or drug abuse patient.[facility]In the event this information is protected by the Federal Confidentiality of Alcohol and Drug Abuse Patient Records regulations: The Federal rules restrict any use of the information to criminally investigate or prosecute any alcohol or drug abuse patient.[facility]In the event this information is protected by the Federal Confidentiality of Alcohol and Drug Abuse Patient Records regulations: The Federal rules restrict any use of the information to criminally investigate or prosecute any alcohol or drug abuse patient.[facility]In the event this information is protected by the Federal Confidentiality of Alcohol and Drug Abuse Patient Records regulations: The Federal rules restrict any use of the information to criminally investigate or prosecute any alcohol or drug abuse patient.[facility]In the event this information is protected by the Federal Confidentiality of Alcohol and Drug Abuse Patient Records regulations: The Federal rules restrict any use of the information to criminally investigate or prosecute any alcohol or drug abuse patient.[facility]In the event this information is protected by the Federal Confidentiality of Alcohol and Drug Abuse Patient Records regulations: The Federal rules restrict any use of the information to criminally investigate or prosecute any alcohol or drug abuse patient.[facility]In the event this information is protected by the Federal Confidentiality of Alcohol and Drug Abuse Patient Records regulations: The Federal rules restrict any use of the information to criminally investigate or prosecute any alcohol or drug abuse patient.[facility]In the event this information is protected by the Federal Confidentiality of Alcohol and Drug Abuse Patient Records regulations: The Federal rules restrict any use of the information to criminally investigate or prosecute any alcohol or drug abuse patient.[facility]In the event this information is protected by the Federal Confidentiality of Alcohol and Drug Abuse Patient Records regulations: The Federal rules restrict any use of the information to criminally investigate or prosecute any alcohol or drug abuse patient.[facility]In the event this information is protected by the Federal Confidentiality of Alcohol and Drug Abuse Patient Records regulations: The Federal rules restrict any use of the information to criminally investigate or prosecute any alcohol or drug abuse patient.[facility]In the event this information is protected by the Federal Confidentiality of Alcohol and Drug Abuse Patient Records regulations: The Federal rules restrict any use of the information to criminally investigate or prosecute any alcohol or drug abuse patient.[facility]In the event this information is protected by the Federal Confidentiality of Alcohol and Drug Abuse Patient Records regulations: The Federal rules restrict any use of the information to criminally investigate or prosecute any alcohol or drug abuse patient.[facility]In the event this information is protected by the Federal Confidentiality of Alcohol and Drug Abuse Patient Records regulations: The Federal rules restrict any use of the information to criminally investigate or prosecute any alcohol or drug abuse patient.[facility]In the event this information is protected by the Federal Confidentiality of Alcohol and Drug Abuse Patient Records regulations: The Federal rules restrict any use of the information to criminally investigate or prosecute any alcohol or drug abuse patient.[facility]In the event this information is protected by the Federal Confidentiality of Alcohol and Drug Abuse Patient Records regulations: The Federal rules restrict any use of the information to criminally investigate or prosecute any alcohol or drug abuse patient.[facility]In the event this information is protected by the Federal Confidentiality of Alcohol and Drug Abuse Patient Records regulations: The Federal rules restrict any use of the information to criminally investigate or prosecute any alcohol or drug abuse patient.[facility]In the event this information is protected by the Federal Confidentiality of Alcohol and Drug Abuse Patient Records regulations: The Federal rules restrict any use of the information to criminally investigate or prosecute any alcohol or drug abuse patient.[facility]In the event this information is protected by the Federal Confidentiality of Alcohol and Drug Abuse Patient Records regulations: The Federal rules restrict any use of the information to criminally investigate or prosecute any alcohol or drug abuse patient.[facility]In the event this information is protected by the Federal Confidentiality of Alcohol and Drug Abuse Patient Records regulations: The Federal rules restrict any use of the information to criminally investigate or prosecute any alcohol or drug abuse patient.[facility]In the event this information is protected by the Federal Confidentiality of Alcohol and Drug Abuse Patient Records regulations: The Federal rules restrict any use of the information to criminally investigate or prosecute any alcohol or drug abuse patient.[facility]In the event this information is protected by the Federal Confidentiality of Alcohol and Drug Abuse Patient Records regulations: The Federal rules restrict any use of the information to criminally investigate or prosecute any alcohol or drug abuse patient.[facility]In the event this information is protected by the Federal Confidentiality of Alcohol and Drug Abuse Patient Records regulations: The Federal rules restrict any use of the information to criminally investigate or prosecute any alcohol or drug abuse patient.[facility]In the event this information is protected by the Federal Confidentiality of Alcohol and Drug Abuse Patient Records regulations: The Federal rules restrict any use of the information to criminally investigate or prosecute any alcohol or drug abuse patient.[facility]In the event this information is protected by the Federal Confidentiality of Alcohol and Drug Abuse Patient Records regulations: The Federal rules restrict any use of the information to criminally investigate or prosecute any alcohol or drug abuse patient.[facility]In the event this information is protected by the Federal Confidentiality of Alcohol and Drug Abuse Patient Records regulations: The Federal rules restrict any use of the information to criminally investigate or prosecute any alcohol or drug abuse patient.[facility]In the event this information is protected by the Federal Confidentiality of Alcohol and Drug Abuse Patient Records regulations: The Federal rules restrict any use of the information to criminally investigate or prosecute any alcohol or drug abuse patient.[facility]In the event this information is protected by the Federal Confidentiality of Alcohol and Drug Abuse Patient Records regulations: The Federal rules restrict any use of the information to criminally investigate or prosecute any alcohol or drug abuse patient.[facility]In the event this information is protected by the Federal Confidentiality of Alcohol and Drug Abuse Patient Records regulations: The Federal rules restrict any use of the information to criminally investigate or prosecute any alcohol or drug abuse patient.[facility]In the event this information is protected by the Federal Confidentiality of Alcohol and Drug Abuse Patient Records regulations: The Federal rules restrict any use of the information to criminally investigate or prosecute any alcohol or drug abuse patient.[facility]In the event this information is protected by the Federal Confidentiality of Alcohol and Drug Abuse Patient Records regulations: The Federal rules restrict any use of the information to criminally investigate or prosecute any alcohol or drug abuse patient.[facility]In the event this information is protected by the Federal Confidentiality of Alcohol and Drug Abuse Patient Records regulations: The Federal rules restrict any use of the information to criminally investigate or prosecute any alcohol or drug abuse patient.[facility]In the event this information is protected by the Federal Confidentiality of Alcohol and Drug Abuse Patient Records regulations: The Federal rules restrict any use of the information to criminally investigate or prosecute any alcohol or drug abuse patient.[facility]In the event this information is protected by the Federal Confidentiality of Alcohol and Drug Abuse Patient Records regulations: The Federal rules restrict any use of the information to criminally investigate or prosecute any alcohol or drug abuse patient.[facility]In the event this information is protected by the Federal Confidentiality of Alcohol and Drug Abuse Patient Records regulations: The Federal rules restrict any use of the information to criminally investigate or prosecute any alcohol or drug abuse patient.[facility]In the event this information is protected by the Federal Confidentiality of Alcohol and Drug Abuse Patient Records regulations: The Federal rules restrict any use of the information to criminally investigate or prosecute any alcohol or drug abuse patient.[facility]In the event this information is protected by the Federal Confidentiality of Alcohol and Drug Abuse Patient Records regulations: The Federal rules restrict any use of the information to criminally investigate or prosecute any alcohol or drug abuse patient.[facility]In the event this information is protected by the Federal Confidentiality of Alcohol and Drug Abuse Patient Records regulations: The Federal rules restrict any use of the information to criminally investigate or prosecute any alcohol or drug abuse patient.[facility]In the event this information is protected by the Federal Confidentiality of Alcohol and Drug Abuse Patient Records regulations: The Federal rules restrict any use of the information to criminally investigate or prosecute any alcohol or drug abuse patient.[facility]In the event this information is protected by the Federal Confidentiality of Alcohol and Drug Abuse Patient Records regulations: The Federal rules restrict any use of the information to criminally investigate or prosecute any alcohol or drug abuse patient.[facility]In the event this information is protected by the Federal Confidentiality of Alcohol and Drug Abuse Patient Records regulations: The Federal rules restrict any use of the information to criminally investigate or prosecute any alcohol or drug abuse patient.[facility]In the event this information is protected by the Federal Confidentiality of Alcohol and Drug Abuse Patient Records regulations: The Federal rules restrict any use of the information to criminally investigate or prosecute any alcohol or drug abuse patient.[facility]In the event this information is protected by the Federal Confidentiality of Alcohol and Drug Abuse Patient Records regulations: The Federal rules restrict any use of the information to criminally investigate or prosecute any alcohol or drug abuse patient.[facility]In the event this information is protected by the Federal Confidentiality of Alcohol and Drug Abuse Patient Records regulations: The Federal rules restrict any use of the information to criminally investigate or prosecute any alcohol or drug abuse patient.[facility]In the event this information is protected by the Federal Confidentiality of Alcohol and Drug Abuse Patient Records regulations: The Federal rules restrict any use of the information to criminally investigate or prosecute any alcohol or drug abuse patient.[facility]In the event this information is protected by the Federal Confidentiality of Alcohol and Drug Abuse Patient Records regulations: The Federal rules restrict any use of the information to criminally investigate or prosecute any alcohol or drug abuse patient.[facility]In the event this information is protected by the Federal Confidentiality of Alcohol and Drug Abuse Patient Records regulations: The Federal rules restrict any use of the information to criminally investigate or prosecute any alcohol or drug abuse patient.[facility]In the event this information is protected by the Federal Confidentiality of Alcohol and Drug Abuse Patient Records regulations: The Federal rules restrict any use of the information to criminally investigate or prosecute any alcohol or drug abuse patient.[facility]In the event this information is protected by the Federal Confidentiality of Alcohol and Drug Abuse Patient Records regulations: The Federal rules restrict any use of the information to criminally investigate or prosecute any alcohol or drug abuse patient.[facility]In the event this information is protected by the Federal Confidentiality of Alcohol and Drug Abuse Patient Records regulations: The Federal rules restrict any use of the information to criminally investigate or prosecute any alcohol or drug abuse patient.[facility]In the event this information is protected by the Federal Confidentiality of Alcohol and Drug Abuse Patient Records regulations: The Federal rules restrict any use of the information to criminally investigate or prosecute any alcohol or drug abuse patient.[facility]In the event this information is protected by the Federal Confidentiality of Alcohol and Drug Abuse Patient Records regulations: The Federal rules restrict any use of the information to criminally investigate or prosecute any alcohol or drug abuse patient.[facility]In the event this information is protected by the Federal Confidentiality of Alcohol and Drug Abuse Patient Records regulations: The Federal rules restrict any use of the information to criminally investigate or prosecute any alcohol or drug abuse patient.[facility]In the event this information is protected by the Federal Confidentiality of Alcohol and Drug Abuse Patient Records regulations: The Federal rules restrict any use of the information to criminally investigate or prosecute any alcohol or drug abuse patient.[facility]In the event this information is protected by the Federal Confidentiality of Alcohol and Drug Abuse Patient Records regulations: The Federal rules restrict any use of the information to criminally investigate or prosecute any alcohol or drug abuse patient.[facility]In the event this information is protected by the Federal Confidentiality of Alcohol and Drug Abuse Patient Records regulations: The Federal rules restrict any use of the information to criminally investigate or prosecute any alcohol or drug abuse patient.[facility]In the event this information is protected by the Federal Confidentiality of Alcohol and Drug Abuse Patient Records regulations: The Federal rules restrict any use of the information to criminally investigate or prosecute any alcohol or drug abuse patient.[facility]In the event this information is protected by the Federal Confidentiality of Alcohol and Drug Abuse Patient Records regulations: The Federal rules restrict any use of the information to criminally investigate or prosecute any alcohol or drug abuse patient.[facility]In the event this information is protected by the Federal Confidentiality of Alcohol and Drug Abuse Patient Records regulations: The Federal rules restrict any use of the information to criminally investigate or prosecute any alcohol or drug abuse patient.[facility]In the event this information is protected by the Federal Confidentiality of Alcohol and Drug Abuse Patient Records regulations: The Federal rules restrict any use of the information to criminally investigate or prosecute any alcohol or drug abuse patient.[facility]In the event this information is protected by the Federal Confidentiality of Alcohol and Drug Abuse Patient Records regulations: The Federal rules restrict any use of the information to criminally investigate or prosecute any alcohol or drug abuse patient.[facility]In the event this information is protected by the Federal Confidentiality of Alcohol and Drug Abuse Patient Records regulations: The Federal rules restrict any use of the information to criminally investigate or prosecute any alcohol or drug abuse patient.[facility]In the event this information is protected by the Federal Confidentiality of Alcohol and Drug Abuse Patient Records regulations: The Federal rules restrict any use of the information to criminally investigate or prosecute any alcohol or drug abuse patient.[facility]In the event this information is protected by the Federal Confidentiality of Alcohol and Drug Abuse Patient Records regulations: The Federal rules restrict any use of the information to criminally investigate or prosecute any alcohol or drug abuse patient.[facility]In the event this information is protected by the Federal Confidentiality of Alcohol and Drug Abuse Patient Records regulations: The Federal rules restrict any use of the information to criminally investigate or prosecute any alcohol or drug abuse patient.[facility]In the event this information is protected by the Federal Confidentiality of Alcohol and Drug Abuse Patient Records regulations: The Federal rules restrict any use of the information to criminally investigate or prosecute any alcohol or drug abuse patient.[facility]In the event this information is protected by the Federal Confidentiality of Alcohol and Drug Abuse Patient Records regulations: The Federal rules restrict any use of the information to criminally investigate or prosecute any alcohol or drug abuse patient.[facility]In the event this information is protected by the Federal Confidentiality of Alcohol and Drug Abuse Patient Records regulations: The Federal rules restrict any use of the information to criminally investigate or prosecute any alcohol or drug abuse patient.[facility]In the event this information is protected by the Federal Confidentiality of Alcohol and Drug Abuse Patient Records regulations: The Federal rules restrict any use of the information to criminally investigate or prosecute any alcohol or drug abuse patient.[facility]In the event this information is protected by the Federal Confidentiality of Alcohol and Drug Abuse Patient Records regulations: The Federal rules restrict any use of the information to criminally investigate or prosecute any alcohol or drug abuse patient.[facility]In the event this information is protected by the Federal Confidentiality of Alcohol and Drug Abuse Patient Records regulations: The Federal rules restrict any use of the information to criminally investigate or prosecute any alcohol or drug abuse patient.[facility]In the event this information is protected by the Federal Confidentiality of Alcohol and Drug Abuse Patient Records regulations: The Federal rules restrict any use of the information to criminally investigate or prosecute any alcohol or drug abuse patient.[facility]In the event this information is protected by the Federal Confidentiality of Alcohol and Drug Abuse Patient Records regulations: The Federal rules restrict any use of the information to criminally investigate or prosecute any alcohol or drug abuse patient.[facility]In the event this information is protected by the Federal Confidentiality of Alcohol and Drug Abuse Patient Records regulations: The Federal rules restrict any use of the information to criminally investigate or prosecute any alcohol or drug abuse patient.[facility]In the event this information is protected by the Federal Confidentiality of Alcohol and Drug Abuse Patient Records regulations: The Federal rules restrict any use of the information to criminally investigate or prosecute any alcohol or drug abuse patient.[facility]In the event this information is protected by the Federal Confidentiality of Alcohol and Drug Abuse Patient Records regulations: The Federal rules restrict any use of the information to criminally investigate or prosecute any alcohol or drug abuse patient.[facility]In the event this information is protected by the Federal Confidentiality of Alcohol and Drug Abuse Patient Records regulations: The Federal rules restrict any use of the information to criminally investigate or prosecute any alcohol or drug abuse patient.[facility]In the event this information is protected by the Federal Confidentiality of Alcohol and Drug Abuse Patient Records regulations: The Federal rules restrict any use of the information to criminally investigate or prosecute any alcohol or drug abuse patient.[facility]In the event this information is protected by the Federal Confidentiality of Alcohol and Drug Abuse Patient Records regulations: The Federal rules restrict any use of the information to criminally investigate or prosecute any alcohol or drug abuse patient.[facility]In the event this information is protected by the Federal Confidentiality of Alcohol and Drug Abuse Patient Records regulations: The Federal rules restrict any use of the information to criminally investigate or prosecute any alcohol or drug abuse patient.[facility]In the event this information is protected by the Federal Confidentiality of Alcohol and Drug Abuse Patient Records regulations: The Federal rules restrict any use of the information to criminally investigate or prosecute any alcohol or drug abuse patient.[facility]In the event this information is protected by the Federal Confidentiality of Alcohol and Drug Abuse Patient Records regulations: The Federal rules restrict any use of the information to criminally investigate or prosecute any alcohol or drug abuse patient.[facility]In the event this information is protected by the Federal Confidentiality of Alcohol and Drug Abuse Patient Records regulations: The Federal rules restrict any use of the information to criminally investigate or prosecute any alcohol or drug abuse patient.[facility]In the event this information is protected by the Federal Confidentiality of Alcohol and Drug Abuse Patient Records regulations: The Federal rules restrict any use of the information to criminally investigate or prosecute any alcohol or drug abuse patient.[facility]In the event this information is protected by the Federal Confidentiality of Alcohol and Drug Abuse Patient Records regulations: The Federal rules restrict any use of the information to criminally investigate or prosecute any alcohol or drug abuse patient.[facility]In the event this information is protected by the Federal Confidentiality of Alcohol and Drug Abuse Patient Records regulations: The Federal rules restrict any use of the information to criminally investigate or prosecute any alcohol or drug abuse patient.[facility]In the event this information is protected by the Federal Confidentiality of Alcohol and Drug Abuse Patient Records regulations: The Federal rules restrict any use of the information to criminally investigate or prosecute any alcohol or drug abuse patient.[facility]In the event this information is protected by the Federal Confidentiality of Alcohol and Drug Abuse Patient Records regulations: The Federal rules restrict any use of the information to criminally investigate or prosecute any alcohol or drug abuse patient.[facility]In the event this information is protected by the Federal Confidentiality of Alcohol and Drug Abuse Patient Records regulations: The Federal rules restrict any use of the information to criminally investigate or prosecute any alcohol or drug abuse patient.[facility]In the event this information is protected by the Federal Confidentiality of Alcohol and Drug Abuse Patient Records regulations: The Federal rules restrict any use of the information to criminally investigate or prosecute any alcohol or drug abuse patient.[facility]In the event this information is protected by the Federal Confidentiality of Alcohol and Drug Abuse Patient Records regulations: The Federal rules restrict any use of the information to criminally investigate or prosecute any alcohol or drug abuse patient.[facility]In the event this information is protected by the Federal Confidentiality of Alcohol and Drug Abuse Patient Records regulations: The Federal rules restrict any use of the information to criminally investigate or prosecute any alcohol or drug abuse patient.[facility]In the event this information is protected by the Federal Confidentiality of Alcohol and Drug Abuse Patient Records regulations: The Federal rules restrict any use of the information to criminally investigate or prosecute any alcohol or drug abuse patient.[facility]In the event this information is protected by the Federal Confidentiality of Alcohol and Drug Abuse Patient Records regulations: The Federal rules restrict any use of the information to criminally investigate or prosecute any alcohol or drug abuse patient.[facility]In the event this information is protected by the Federal Confidentiality of Alcohol and Drug Abuse Patient Records regulations: The Federal rules restrict any use of the information to criminally investigate or prosecute any alcohol or drug abuse patient.[facility]In the event this information is protected by the Federal Confidentiality of Alcohol and Drug Abuse Patient Records regulations: The Federal rules restrict any use of the information to criminally investigate or prosecute any alcohol or drug abuse patient.[facility]In the event this information is protected by the Federal Confidentiality of Alcohol and Drug Abuse Patient Records regulations: The Federal rules restrict any use of the information to criminally investigate or prosecute any alcohol or drug abuse patient.[facility]In the event this information is protected by the Federal Confidentiality of Alcohol and Drug Abuse Patient Records regulations: The Federal rules restrict any use of the information to criminally investigate or prosecute any alcohol or drug abuse patient.[facility]In the event this information is protected by the Federal Confidentiality of Alcohol and Drug Abuse Patient Records regulations: The Federal rules restrict any use of the information to criminally investigate or prosecute any alcohol or drug abuse patient.[facility]In the event this information is protected by the Federal Confidentiality of Alcohol and Drug Abuse Patient Records regulations: The Federal rules restrict any use of the information to criminally investigate or prosecute any alcohol or drug abuse patient.[facility]In the event this information is protected by the Federal Confidentiality of Alcohol and Drug Abuse Patient Records regulations: The Federal rules restrict any use of the information to criminally investigate or prosecute any alcohol or drug abuse patient.[facility]In the event this information is protected by the Federal Confidentiality of Alcohol and Drug Abuse Patient Records regulations: The Federal rules restrict any use of the information to criminally investigate or prosecute any alcohol or drug abuse patient.[facility]In the event this information is protected by the Federal Confidentiality of Alcohol and Drug Abuse Patient Records regulations: The Federal rules restrict any use of the information to criminally investigate or prosecute any alcohol or drug abuse patient.[facility]In the event this information is protected by the Federal Confidentiality of Alcohol and Drug Abuse Patient Records regulations: The Federal rules restrict any use of the information to criminally investigate or prosecute any alcohol or drug abuse patient.[facility]In the event this information is protected by the Federal Confidentiality of Alcohol and Drug Abuse Patient Records regulations: The Federal rules restrict any use of the information to criminally investigate or prosecute any alcohol or drug abuse patient.[facility]In the event this information is protected by the Federal Confidentiality of Alcohol and Drug Abuse Patient Records regulations: The Federal rules restrict any use of the information to criminally investigate or prosecute any alcohol or drug abuse patient.[facility]In the event this information is protected by the Federal Confidentiality of Alcohol and Drug Abuse Patient Records regulations: The Federal rules restrict any use of the information to criminally investigate or prosecute any alcohol or drug abuse patient.[facility]In the event this information is protected by the Federal Confidentiality of Alcohol and Drug Abuse Patient Records regulations: The Federal rules restrict any use of the information to criminally investigate or prosecute any alcohol or drug abuse patient.[facility]In the event this information is protected by the Federal Confidentiality of Alcohol and Drug Abuse Patient Records regulations: The Federal rules restrict any use of the information to criminally investigate or prosecute any alcohol or drug abuse patient.[facility]In the event this information is protected by the Federal Confidentiality of Alcohol and Drug Abuse Patient Records regulations: The Federal rules restrict any use of the information to criminally investigate or prosecute any alcohol or drug abuse patient.[facility]In the event this information is protected by the Federal Confidentiality of Alcohol and Drug Abuse Patient Records regulations: The Federal rules restrict any use of the information to criminally investigate or prosecute any alcohol or drug abuse patient.[facility]In the event this information is protected by the Federal Confidentiality of Alcohol and Drug Abuse Patient Records regulations: The Federal rules restrict any use of the information to criminally investigate or prosecute any alcohol or drug abuse patient.[facility]In the event this information is protected by the Federal Confidentiality of Alcohol and Drug Abuse Patient Records regulations: The Federal rules restrict any use of the information to criminally investigate or prosecute any alcohol or drug abuse patient.[facility]In the event this information is protected by the Federal Confidentiality of Alcohol and Drug Abuse Patient Records regulations: The Federal rules restrict any use of the information to criminally investigate or prosecute any alcohol or drug abuse patient.[facility]In the event this information is protected by the Federal Confidentiality of Alcohol and Drug Abuse Patient Records regulations: The Federal rules restrict any use of the information to criminally investigate or prosecute any alcohol or drug abuse patient.[facility]In the event this information is protected by the Federal Confidentiality of Alcohol and Drug Abuse Patient Records regulations: The Federal rules restrict any use of the information to criminally investigate or prosecute any alcohol or drug abuse patient.[facility]In the event this information is protected by the Federal Confidentiality of Alcohol and Drug Abuse Patient Records regulations: The Federal rules restrict any use of the information to criminally investigate or prosecute any alcohol or drug abuse patient.[facility]In the event this information is protected by the Federal Confidentiality of Alcohol and Drug Abuse Patient Records regulations: The Federal rules restrict any use of the information to criminally investigate or prosecute any alcohol or drug abuse patient.[facility]In the event this information is protected by the Federal Confidentiality of Alcohol and Drug Abuse Patient Records regulations: The Federal rules restrict any use of the information to criminally investigate or prosecute any alcohol or drug abuse patient.[facility]In the event this information is protected by the Federal Confidentiality of Alcohol and Drug Abuse Patient Records regulations: The Federal rules restrict any use of the information to criminally investigate or prosecute any alcohol or drug abuse patient.[facility]In the event this information is protected by the Federal Confidentiality of Alcohol and Drug Abuse Patient Records regulations: The Federal rules restrict any use of the information to criminally investigate or prosecute any alcohol or drug abuse patient.[facility]In the event this information is protected by the Federal Confidentiality of Alcohol and Drug Abuse Patient Records regulations: The Federal rules restrict any use of the information to criminally investigate or prosecute any alcohol or drug abuse patient.[facility]In the event this information is protected by the Federal Confidentiality of Alcohol and Drug Abuse Patient Records regulations: The Federal rules restrict any use of the information to criminally investigate or prosecute any alcohol or drug abuse patient.[facility]In the event this information is protected by the Federal Confidentiality of Alcohol and Drug Abuse Patient Records regulations: The Federal rules restrict any use of the information to criminally investigate or prosecute any alcohol or drug abuse patient.[facility]In the event this information is protected by the Federal Confidentiality of Alcohol and Drug Abuse Patient Records regulations: The Federal rules restrict any use of the information to criminally investigate or prosecute any alcohol or drug abuse patient.[facility]In the event this information is protected by the Federal Confidentiality of Alcohol and Drug Abuse Patient Records regulations: The Federal rules restrict any use of the information to criminally investigate or prosecute any alcohol or drug abuse patient.[facility]In the event this information is protected by the Federal Confidentiality of Alcohol and Drug Abuse Patient Records regulations: The Federal rules restrict any use of the information to criminally investigate or prosecute any alcohol or drug abuse patient.[facility]In the event this information is protected by the Federal Confidentiality of Alcohol and Drug Abuse Patient Records regulations: The Federal rules restrict any use of the information to criminally investigate or prosecute any alcohol or drug abuse patient.[facility]In the event this information is protected by the Federal Confidentiality of Alcohol and Drug Abuse Patient Records regulations: The Federal rules restrict any use of the information to criminally investigate or prosecute any alcohol or drug abuse patient.[facility]In the event this information is protected by the Federal Confidentiality of Alcohol and Drug Abuse Patient Records regulations: The Federal rules restrict any use of the information to criminally investigate or prosecute any alcohol or drug abuse patient.[facility]In the event this information is protected by the Federal Confidentiality of Alcohol and Drug Abuse Patient Records regulations: The Federal rules restrict any use of the information to criminally investigate or prosecute any alcohol or drug abuse patient.[facility]In the event this information is protected by the Federal Confidentiality of Alcohol and Drug Abuse Patient Records regulations: The Federal rules restrict any use of the information to criminally investigate or prosecute any alcohol or drug abuse patient.[facility]In the event this information is protected by the Federal Confidentiality of Alcohol and Drug Abuse Patient Records regulations: The Federal rules restrict any use of the information to criminally investigate or prosecute any alcohol or drug abuse patient.[facility]In the event this information is protected by the Federal Confidentiality of Alcohol and Drug Abuse Patient Records regulations: The Federal rules restrict any use of the information to criminally investigate or prosecute any alcohol or drug abuse patient.[facility]In the event this information is protected by the Federal Confidentiality of Alcohol and Drug Abuse Patient Records regulations: The Federal rules restrict any use of the information to criminally investigate or prosecute any alcohol or drug abuse patient.[facility]In the event this information is protected by the Federal Confidentiality of Alcohol and Drug Abuse Patient Records regulations: The Federal rules restrict any use of the information to criminally investigate or prosecute any alcohol or drug abuse patient.[facility]In the event this information is protected by the Federal Confidentiality of Alcohol and Drug Abuse Patient Records regulations: The Federal rules restrict any use of the information to criminally investigate or prosecute any alcohol or drug abuse patient.[facility]In the event this information is protected by the Federal Confidentiality of Alcohol and Drug Abuse Patient Records regulations: The Federal rules restrict any use of the information to criminally investigate or prosecute any alcohol or drug abuse patient.[facility]In the event this information is protected by the Federal Confidentiality of Alcohol and Drug Abuse Patient Records regulations: The Federal rules restrict any use of the information to criminally investigate or prosecute any alcohol or drug abuse patient.[facility]In the event this information is protected by the Federal Confidentiality of Alcohol and Drug Abuse Patient Records regulations: The Federal rules restrict any use of the information to criminally investigate or prosecute any alcohol or drug abuse patient.[facility]In the event this information is protected by the Federal Confidentiality of Alcohol and Drug Abuse Patient Records regulations: The Federal rules restrict any use of the information to criminally investigate or prosecute any alcohol or drug abuse patient.[facility]In the event this information is protected by the Federal Confidentiality of Alcohol and Drug Abuse Patient Records regulations: The Federal rules restrict any use of the information to criminally investigate or prosecute any alcohol or drug abuse patient.[facility]In the event this information is protected by the Federal Confidentiality of Alcohol and Drug Abuse Patient Records regulations: The Federal rules restrict any use of the information to criminally investigate or prosecute any alcohol or drug abuse patient.[facility]In the event this information is protected by the Federal Confidentiality of Alcohol and Drug Abuse Patient Records regulations: The Federal rules restrict any use of the information to criminally investigate or prosecute any alcohol or drug abuse patient.[facility]In the event this information is protected by the Federal Confidentiality of Alcohol and Drug Abuse Patient Records regulations: The Federal rules restrict any use of the information to criminally investigate or prosecute any alcohol or drug abuse patient.[facility]In the event this information is protected by the Federal Confidentiality of Alcohol and Drug Abuse Patient Records regulations: The Federal rules restrict any use of the information to criminally investigate or prosecute any alcohol or drug abuse patient.[facility]In the event this information is protected by the Federal Confidentiality of Alcohol and Drug Abuse Patient Records regulations: The Federal rules restrict any use of the information to criminally investigate or prosecute any alcohol or drug abuse patient.[facility]In the event this information is protected by the Federal Confidentiality of Alcohol and Drug Abuse Patient Records regulations: The Federal rules restrict any use of the information to criminally investigate or prosecute any alcohol or drug abuse patient.[facility]In the event this information is protected by the Federal Confidentiality of Alcohol and Drug Abuse Patient Records regulations: The Federal rules restrict any use of the information to criminally investigate or prosecute any alcohol or drug abuse patient.[facility]In the event this information is protected by the Federal Confidentiality of Alcohol and Drug Abuse Patient Records regulations: The Federal rules restrict any use of the information to criminally investigate or prosecute any alcohol or drug abuse patient.[facility]In the event this information is protected by the Federal Confidentiality of Alcohol and Drug Abuse Patient Records regulations: The Federal rules restrict any use of the information to criminally investigate or prosecute any alcohol or drug abuse patient.[facility]In the event this information is protected by the Federal Confidentiality of Alcohol and Drug Abuse Patient Records regulations: The Federal rules restrict any use of the information to criminally investigate or prosecute any alcohol or drug abuse patient.[facility]In the event this information is protected by the Federal Confidentiality of Alcohol and Drug Abuse Patient Records regulations: The Federal rules restrict any use of the information to criminally investigate or prosecute any alcohol or drug abuse patient.[facility]In the event this information is protected by the Federal Confidentiality of Alcohol and Drug Abuse Patient Records regulations: The Federal rules restrict any use of the information to criminally investigate or prosecute any alcohol or drug abuse patient.[facility]In the event this information is protected by the Federal Confidentiality of Alcohol and Drug Abuse Patient Records regulations: The Federal rules restrict any use of the information to criminally investigate or prosecute any alcohol or drug abuse patient.[facility]In the event this information is protected by the Federal Confidentiality of Alcohol and Drug Abuse Patient Records regulations: The Federal rules restrict any use of the information to criminally investigate or prosecute any alcohol or drug abuse patient.[facility]In the event this information is protected by the Federal Confidentiality of Alcohol and Drug Abuse Patient Records regulations: The Federal rules restrict any use of the information to criminally investigate or prosecute any alcohol or drug abuse patient.[facility]In the event this information is protected by the Federal Confidentiality of Alcohol and Drug Abuse Patient Records regulations: The Federal rules restrict any use of the information to criminally investigate or prosecute any alcohol or drug abuse patient.[facility]In the event this information is protected by the Federal Confidentiality of Alcohol and Drug Abuse Patient Records regulations: The Federal rules restrict any use of the information to criminally investigate or prosecute any alcohol or drug abuse patient.[facility]In the event this information is protected by the Federal Confidentiality of Alcohol and Drug Abuse Patient Records regulations: The Federal rules restrict any use of the information to criminally investigate or prosecute any alcohol or drug abuse patient.[facility]In the event this information is protected by the Federal Confidentiality of Alcohol and Drug Abuse Patient Records regulations: The Federal rules restrict any use of the information to criminally investigate or prosecute any alcohol or drug abuse patient.[facility]In the event this information is protected by the Federal Confidentiality of Alcohol and Drug Abuse Patient Records regulations: The Federal rules restrict any use of the information to criminally investigate or prosecute any alcohol or drug abuse patient.[facility]In the event this information is protected by the Federal Confidentiality of Alcohol and Drug Abuse Patient Records regulations: The Federal rules restrict any use of the information to criminally investigate or prosecute any alcohol or drug abuse patient.[facility]In the event this information is protected by the Federal Confidentiality of Alcohol and Drug Abuse Patient Records regulations: The Federal rules restrict any use of the information to criminally investigate or prosecute any alcohol or drug abuse patient.[facility]In the event this information is protected by the Federal Confidentiality of Alcohol and Drug Abuse Patient Records regulations: The Federal rules restrict any use of the information to criminally investigate or prosecute any alcohol or drug abuse patient.[facility] the event this information is protected by the Federal Confidentiality of Alcohol and Drug Abuse Patient Records regulations: The Federal rules restrict any use of the information to criminally investigate or prosecute any alcohol or drug abuse patient.[facility] HospitalIn the event this information is protected by the Federal Confidentiality of Alcohol and Drug Abuse Patient Records regulations: The Federal rules restrict any use of the information to criminally investigate or prosecute any alcohol or drug abuse patient.[facility] HospitalIn the event this information is protected by the Federal Confidentiality of Alcohol and Drug Abuse Patient Records regulations: The Federal rules restrict any use of the information to criminally investigate or prosecute any alcohol or drug abuse patient.[facility]In the event this information is protected by the Federal Confidentiality of Alcohol and Drug Abuse Patient Records regulations: The Federal rules restrict any use of the information to criminally investigate or prosecute any alcohol or drug abuse patient.[facility] HospitalIn the event this information is protected by the Federal Confidentiality of Alcohol and Drug Abuse Patient Records regulations: The Federal rules restrict any use of the information to criminally investigate or prosecute any alcohol or drug abuse patient.[facility] HospitalIn the event this information is protected by the Federal Confidentiality of Alcohol and Drug Abuse Patient Records regulations: The Federal rules restrict any use of the information to criminally investigate or prosecute any alcohol or drug abuse patient.[facility]In the event this information is protected by the Federal Confidentiality of Alcohol and Drug Abuse Patient Records regulations: The Federal rules restrict any use of the information to criminally investigate or prosecute any alcohol or drug abuse patient.[facility] HospitalIn the event this information is protected by the Federal Confidentiality of Alcohol and Drug Abuse Patient Records regulations: The Federal rules restrict any use of the information to criminally investigate or prosecute any alcohol or drug abuse patient.[facility] HospitalIn the event this information is protected by the Federal Confidentiality of Alcohol and Drug Abuse Patient Records regulations: The Federal rules restrict any use of the information to criminally investigate or prosecute any alcohol or drug abuse patient.[facility] HospitalIn the event this information is protected by the Federal Confidentiality of Alcohol and Drug Abuse Patient Records regulations: The Federal rules restrict any use of the information to criminally investigate or prosecute any alcohol or drug abuse patient.[facility] HospitalIn the event this information is protected by the Federal Confidentiality of Alcohol and Drug Abuse Patient Records regulations: The Federal rules restrict any use of the information to criminally investigate or prosecute any alcohol or drug abuse patient.[facility] HospitalIn the event this information is protected by the Federal Confidentiality of Alcohol and Drug Abuse Patient Records regulations: The Federal rules restrict any use of the information to criminally investigate or prosecute any alcohol or drug abuse patient.[facility] HospitalIn the event this information is protected by the Federal Confidentiality of Alcohol and Drug Abuse Patient Records regulations: The Federal rules restrict any use of the information to criminally investigate or prosecute any alcohol or drug abuse patient.[facility] HospitalIn the event this information is protected by the Federal Confidentiality of Alcohol and Drug Abuse Patient Records regulations: The Federal rules restrict any use of the information to criminally investigate or prosecute any alcohol or drug abuse patient.[facility] HospitalIn the event this information is protected by the Federal Confidentiality of Alcohol and Drug Abuse Patient Records regulations: The Federal rules restrict any use of the information to criminally investigate or prosecute any alcohol or drug abuse patient.[facility] HospitalIn the event this information is protected by the Federal Confidentiality of Alcohol and Drug Abuse Patient Records regulations: The Federal rules restrict any use of the information to criminally investigate or prosecute any alcohol or drug abuse patient.[facility] HospitalIn the event this information is protected by the Federal Confidentiality of Alcohol and Drug Abuse Patient Records regulations: The Federal rules restrict any use of the information to criminally investigate or prosecute any alcohol or drug abuse patient.[facility] Care Teams (unrecognized sec tion and content) Backwinder Relationship Specialty Start Date End Date Israel Pruitt DO [address] [place] [address] PCP - General Internal Medicine 11/10/19 Laron Arreola [address] [place] [address] Orthopedics 11/22/20 Backwinder Relationship Specialty Start Date End Date Israel Pruitt, DO [address] [place] [address] PCP - General Internal Medicine 11/10/19 Laron Arreola [address] [place] [address] Orthopedics 11/22/20 Backwinder Relationship Specialty Start Date End Date JovannyjoanIsrael yanez, DO [address] [place] [address] PCP - General Internal Medicine 11/10/19 Laron Arreola [address] [place] [address] Orthopedics 11/22/20 Backwinder Relationship Specialty Start Date End Date JovannyjoanIsrael yanez, DO [address] [place] [address] PCP - General Internal Medicine 11/10/19 Laron Arreola [address] [place] [address] Orthopedics 11/22/20 Backwinder Relationship Specialty Start Date End Date JovannyjoanIsrael yanezil, DO [address] [place] [address] PCP - General Internal Medicine 11/10/19 Laron Arreola [address] [place] [address] Orthopedics 11/22/20 Israel Minor MD [address] [facility] [place] [address] Cardiology 02/27/22 Backwinder Relationship Specialty Start Date End Date ZabrinaIsrael yanez Hamzah, DO [address] [place] [address] PCP - General Internal Medicine 11/10/19 Laron Arreola [address] [place] [address] Orthopedics 11/22/20 Israel Minor MD [address] [facility] [place] [address] Cardiology 02/27/22 Backwinder Relationship Specialty Start Date End Date Edmond Isarel DO Hamzah [address] [place] [address] PCP - General Internal Medicine 11/10/19 Laron Arreola [address] [place] [address] Orthopedics 11/22/20 Israel Minor MD [address] [facility] [place] [address] Cardiology 02/27/22 Backwinder Relationship Specialty Start Date End Date Israel Pruitt DO [address] [place] [address] PCP - General Internal Medicine 11/10/19 Laron Arreola [address] [place] [address] Orthopedics 11/22/20 Israel Minor MD [address] [facility] [place] [address] Cardiology 02/27/22 Backwinder Relationship Specialty Start Date End Date Israel Pruitt, DO [address] [place] [address] PCP - General Internal Medicine 11/10/19 Laron Arreola [address] [place] [address] Orthopedics 11/22/20 Israel Minor MD [address] [facility] [place] [address] Cardiology 02/27/22 Backwinder Relationship Specialty Start Date End Date Israel Pruitt, DO [address] [place] [address] PCP - General Internal Medicine 11/10/19 Laron Arreola [address] [place] [address] Orthopedics 11/22/20 Israel Minor MD [address] [facility] [place] [address] Cardiology 02/27/22 Backwinder Relationship Specialty Start Date End Date Israel Pruitt, DO [address] [place] [address] PCP - General Internal Medicine 11/10/19 Laron Arreola [address] [place] [address] Orthopedics 11/22/20 Israel Minor MD [address] [facility] [place] [address] Cardiology 02/27/22 Backwinder Relationship Specialty Start Date End Date Israel Pruitt, DO [address] [place] [address] PCP - General Internal Medicine 11/10/19 Laron Arreola [address] [place] [address] Orthopedics 11/22/20 Israel Minor MD [address] [facility] [address] Cardiology 02/27/22 Backwinder Relationship Specialty Start Date End Date Israel Pruitt, DO [address] [place] [address] PCP - General Internal Medicine 11/10/19 Laron Arreola [address] [facility] [address] [place] [address] Orthopedics 11/22/20 Israel Minor MD [address] [facility] [place] [address] Cardiology 02/27/22 Backwinder Relationship Specialty Start Date End Date Israel Pruitt, DO [address] [place] [address] PCP - General Internal Medicine 11/10/19 Laron Arreola [address] [facility] [address] [place] [address] Orthopedics 11/22/20 Israel Minor MD [address] [facility] [place] [address] Cardiology 02/27/22 Backwinder Relationship Specialty Start Date End Date Israel Pruitt, DO [address] [place] [address] PCP - General Internal Medicine 11/10/19 Laron Arreola [address] [place] [address] Orthopedics 11/22/20 Israel Minor MD [address] [facility] [place] [address] Cardiology 02/27/22 Backwinder Relationship Specialty Start Date End Date Israel Pruitt DO [address] [place] [address] PCP - General Internal Medicine 11/10/19 Laron Arreola [address] [place] [address] Orthopedics 11/22/20 Israel Minor MD [address] [facility] [address] Cardiology 02/27/22 Backwinder Relationship Specialty Start Date End Date Israel Pruitt DO [address] [place] [address] PCP - General Internal Medicine 11/10/19 Laron Arreola [address] [place] [address] Orthopedics 11/22/20 Israel Minor MD [address] [facility] [address] Cardiology 02/27/22 Backwinder Relationship Specialty Start Date End Date Israel Pruitt DO [address] [place] [address] PCP - General Internal Medicine 11/10/19 Laron Arreola [address] [place] [address] Orthopedics 11/22/20 Israel Minor MD [address] [facility] [place] [address] Cardiology 02/27/22 Backwinder Relationship Specialty Start Date End Date Israel Pruitt, DO [address] [place] [address] PCP - General Internal Medicine 11/10/19 Laron Arreola [address] [place] [address] Orthopedics 11/22/20 Israel Minor MD [address] [facility] [address] Cardiology 02/27/22 Backwinder Relationship Specialty Start Date End Date Israel Pruitt, DO [address] [place] [address] PCP - General Internal Medicine 11/10/19 Laron Arreola [address] [place] [address] Orthopedics 11/22/20 Israel Minor MD [address] [facility] [address] Cardiology 02/27/22 Backwinder Relationship Specialty Start Date End Date Israel Pruitt, DO [address] [place] [address] PCP - General Internal Medicine 11/10/19 Laron Arreola [address] [place] [address] Orthopedics 11/22/20 Israel Minor MD [address] [place] [address] Cardiology 02/27/22 Backwinder Relationship Specialty Start Date End Date Israel Pruitt DO [address] [place] [address] PCP - General Internal Medicine 11/10/19 Laron Arreola [address] [place] [address] Orthopedics 11/22/20 Israel Minor MD [address] [place] [address] Cardiology 02/27/22 Backwinder Relationship Specialty Start Date End Date Israel Pruitt DO [address] [place] [address] PCP - General Internal Medicine 11/10/19 Laron Arreola [address] [place] [address] Orthopedics 11/22/20 Israel Minor MD [address] [place] [address] Cardiology 02/27/22 Tere Wang RN [address] [place] [address] [facility] 07/10/22 09/08/22 Backwinder Relationship Specialty Start Date End Date Israel Pruitt DO [address] [place] [address] PCP - General Internal Medicine 11/10/19 Laron Arreola [address] [place] [address] Orthopedics 11/22/20 Israel Minor MD [address] [facility] [place] [address] Cardiology 02/27/22 Tere Wang, JESSY [address] [place] [address] [facility] 07/10/22 09/08/22 Backwinder Relationship Specialty Start Date End Date Israel Pruitt DO [address] [place] [address] PCP - General Internal Medicine 11/10/19 Laron Arreola [address] [facility] [place] [address] Orthopedics 11/22/20 Israel Minor MD [address] [facility] [place] [address] Cardiology 02/27/22 Tere Wang RN [address] [place] [address] [facility] 07/10/22 09/08/22 Backwinder Relationship Specialty Start Date End Date Israel Pruitt DO [address] [place] [address] PCP - General Internal Medicine 11/10/19 Laron Arreola [address] [place] [address] Orthopedics 11/22/20 Israel Minor MD [address] [facility] [place] [address] Cardiology 02/27/22 Tere Wang RN [address] [place] [address] [facility] 07/10/22 09/08/22 Backwinder Relationship Specialty Start Date End Date Israel Pruitt DO [address] [place] [address] PCP - General Internal Medicine 11/10/19 Laron Arreola [address] [place] [address] Orthopedics 11/22/20 Israel Minor MD [address] [place], [place] 820964 [phone] Cardiology 02/27/22 Tere Wang, JESSY [address] [place] [address] Primary Care [facility] 07/10/22 09/08/22 Backwinder Relationship Specialty Start Date End Date Israel Pruitt DO [address] [place] [address] PCP - General Internal Medicine 11/10/19 Laron Arreola [address] [place] [address] Orthopedics 11/22/20 Israel Minor MD [address] [facility], [place] [address] [phone] Cardiology 02/27/22 Tere Wang, JESSY [address] [place] [address] [facility] 07/10/22 09/08/22 Backwinder Relationship Specialty Start Date End Date Israel Pruitt DO [address] [place] [address] PCP - General Internal Medicine 11/10/19 Laron Arreola [address] [place] [address] Orthopedics 11/22/20 Israel Minor MD [address] [place], [place] 372112 [phone] Cardiology 02/27/22 Tere Wang RN [address] [facility] [address] [place] [address] [facility] 07/10/22 09/08/22 Backwinder Relationship Specialty Start Date End Date Edmond Israel Hamzah, DO [address] [place] [address] PCP - General Internal Medicine 11/10/19 Laron Arreola [address] [place] [address] Orthopedics 11/22/20 Israel Minor MD [address] [place], [place] 363080 [phone] Cardiology 02/27/22 Eveline Dean RN [address] [place] [address] [employer]visor [employer] 08/08/22 Backwinder Relationship Specialty Start Date End Date Israel Pruitt, DO [address] [place] [address] PCP - General Internal Medicine 11/10/19 Laron Arreola [address] [place] [address] Orthopedics 11/22/20 Israel Minor MD [address] [place] [address] Cardiology 02/27/22 Eveline Dean RN [address] [place] [address] Supervisor Aircraft [employer] 08/08/22 Backwinder Relationship Specialty Start Date End Date Israel Pruitt DO [address] [place] [address] PCP - General Internal Medicine 11/10/19 Laron Arreola [address] [facility] [place] [address] Orthopedics 11/22/20 Israel Minor MD [address] [place], [place] 4877[address] [phone] Cardiology 02/27/22 Eveline Dean, JESSY [address] [place] [address] Supervisor Aircraft [employer] 08/08/22 Backwinder Relationship Specialty Start Date End Date Israel Pruitt DO [address] [place] [address] PCP - General Internal Medicine 11/10/19 Laron Arreola [address] [facility] [address] [place] [address] Orthopedics 11/22/20 Israel Minor MD [address] [place], [place] 893217 [phone] Cardiology 02/27/22 Eveline Dean RN [address] [place] [address] Supervisor Aircraft Maintenance 08/08/22 Randa Rowell DO [address] [facility] [address] [place], [place] [id number] Hematology/Oncology 09/08/22 Sanket Rob, DO [address] [place] [address] Neurology 09/08/22 Backwinder Relationship Specialty Start Date End Date Israel Pruitt DO [address] [place] [address] PCP - General Internal Medicine 11/10/19 Laron Arreola [address] [facility] [address] [place] [address] Orthopedics 11/22/20 Israel Minor MD [address] [place], [place] 80006481 [phone] Cardiology 02/27/22 Eveline Dean, JESSY [address] [place], [place] 7688331 Supervisor Aircraft Maintenance 08/08/22 Randa Rowell DO [address] [place] [address] [phone] Hematology/Oncology 09/08/22 Sanket Rob, [address] [place] [address] Neurology 09/08/22 Backwinder Relationship Specialty Start Date End Date Israel Pruitt [address] [place] [address] PCP - General Internal Medicine 11/10/19 Laron Arreola [address] 351273 Orthopedics 11/22/20 Israel Minor MD [address] [place], [place] 650[address] Cardiology 02/27/22 Eveline Dean, JESSY [address] [place] [address] Supervisor Aircraft Maintenance 08/08/22 Randa Rowell DO [address] [place] [address] [phone] Hematology/Oncology 09/08/22 Sanket Rob, DO [address] [place] [address] Neurology 09/08/22 Backwinder Relationship Specialty Start Date End Date Jovannyjoanrenata Israel Hamzah, DO [address] [place] [address] PCP - General Internal Medicine 11/10/19 Laron Arreola [address] [facility] [address] [place] [address] Orthopedics 11/22/20 Israel Minor MD [address] [place], [place] 326556 Cardiology 02/27/22 Eveline Dean RN [address] [place], [place] 4521531 Supervisor Aircraft Maintenance 08/08/22 Randa Rowell, DO [address] [facility] [address] [place], [place] [phone] Hematology/Oncology 09/08/22 Sanket Rob, DO [address] [place] [address] Neurology 09/08/22 Backwinder Relationship Specialty Start Date End Date Israel Pruitt, DO [address] [facility] [place] [address] PCP - General Internal Medicine 11/10/19 Laron Arreola [address] [facility] [address] [place] [address] Orthopedics 11/22/20 Israel Minor MD [address] [place] [address] Cardiology 02/27/22 Eveline Dean RN [address] [place], [place] 1607431 Supervisor Aircraft Maintenance 08/08/22 Randa Rowell DO [address] [place] [address] [phone] Hematology/Oncology 09/08/22 Sanket Rob, DO [address] [place] [address] Neurology 09/08/22 Ten Weber, [facility] [address] [place] [address] Transitional Care Pharmacist Pharmacy 09/19/22 10/17/22 Backwinder Relationship Specialty Start Date End Date Israel Pruitt DO [address] [place] [address] PCP - General Internal Medicine 11/10/19 Laron Arreola [address] [id number] Orthopedics 11/22/20 Israel Minor MD [address] [place], [place] [id number] Cardiology 02/27/22 Eveline Dean RN [address] [place] [address] Supervisor Aircraft Maintenance 08/08/[address] [place] [address] [address] [place], [place] [phone] Hematology/Oncology 09/08/22 Sanket Rob, DO [address] [place] [address] Neurology 09/08/22 Ten Weber, [facility] [address] [place] [address] Transitional Care Pharmacist Pharmacy 09/19/22 10/17/22 Backwinder Relationship Specialty Start Date End Date Zabrinarenata Israel Hamzah, DO [address] [place] [address] PCP - General Internal Medicine 11/10/19 Laron Ar[address]ola [address] [place] [address] Orthopedics 11/22/20 Israel Minor MD [address] [place], [place] [address] [address] Cardiology 02/27/22 Eveline Dean, JESSY [address] [place], [place] 9694731 Supervisor Aircraft Maintenance 08/08/22 Randa Rowell, DO [address] [facility] [address] [place], [place] [id number] Hematology/Oncology 09/08/22 Sanket Rob, [address] [place] [address] Neurology 09/08/22 Ten Weber, [facility] [address] [place] [address] Transitional Care Pharmacist Pharmacy 09/19/22 10/17/22 Backwinder Relationship Specialty Start Date End Date Israel Pruitt, DO [address] [place] [address] PCP - General Internal Medicine 11/10/19 Laron Arreola [address] [place] [address] Orthopedics 11/22/20 Israel Minor MD [address] [place], [place] [id number] Cardiology 02/27/22 Eveline Dean, RN [address] [place] [address] Supervisor Aircraft Maintenance 08/08/22 Randa Rowell, DO [address] [place] [address] [phone] Hematology/Oncology 09/08/22 Sanket Rob, DO [address] [place] [address] Neurology 09/08/22 Ten Weber, [facility] [address] [place] [address] Transitional Care Pharmacist Pharmacy 09/19/22 10/17/22 Backwinder Relationship Specialty Start Date End Date Israel Pruitt, DO [address] [place] [address] PCP - General Internal Medicine 11/10/19 Laron Arreola [address] [place] [address] [address] [place], [place] [id number] Orthopedics 11/22/20 Israel Minor MD [address] [place], [place] 453226 Cardiology 02/27/22 Eveline Dean, JESSY [address] [place] [address] Supervisor Aircraft Maintenance 08/08/22 Randa Rowell, DO [facility] [address] [phone] Hematology/Oncology 09/08/22 Sanket Rob, DO [address] [place] [address] Neurology 09/08/22 [facility] [address] [place] [address] Transitional Care Pharmacist Pharmacy 09/19/22 10/17/22 Backwinder Relationship Specialty Start Date End Date Israel Pruitt, DO [address] [place] [address] PCP - General Internal Medicine 11/10/19 Laron Arreola [address] [facility] [address] [place], [place] [id number] Orthopedics 11/22/20 Israel Minor MD [address] [place], [place] [phone] Cardiology 02/27/22 Eveline Dean, JESSY [address] [place], [place] 4953531 Supervisor Aircraft Maintenance 08/08/22 Randa Rowell DO [address] [facility] [address] [place], [place] [id number] Hematology/Oncology 09/08/22 Sanket Rob, [address] [place] [address] Neurology 09/08/22 [facility] [address] [place] [address] Transitional Care Pharmacist Pharmacy 09/19/22 10/17/22 Backwinder Relationship Specialty Start Date End Date Israel Pruitt, DO [address] [place] [address] PCP - General Internal Medicine 11/10/19 Laron Arreola [address] [facility] [address] [place], [place] 204[address] Orthopedics 11/22/20 Israel Minor MD [address] [place], [place] [id number] Cardiology 02/27/22 Eveline Dean, RN [address] [place] [address] Supervisor Aircraft Maintenance 08/08/22 Randa Rowell, DO [address] [place] [address] [address] [place], [place] [phone] Hematology/Oncology 09/08/22 [facility] [address] [place] [address] Neurology 09/08/22 Ten Weber, [facility] [address] [place] [address] Transitional Care Pharmacist Pharmacy 09/19/22 10/17/22 Backwinder Relationship Specialty Start Date End Date Israel Pruitt [address] [place] [address] PCP - General Internal Medicine 11/10/19 Laron Arreola [address] [facility] [address] [place], [place] 03[address]23 Orthopedics 11/22/20 Israel Minor MD [address] [place], [place] [id number] Cardiology 02/27/22 Eveline Dean, JESSY [address] [place], [place] 4494031 Supervisor Aircraft Maintenance 08/08/22 Randa Rowell DO [address] [place] [address] 310 [place], [place] [phone] Hematology/Oncology 09/08/22 Sanket Rob, DO [address] [place] [address] Neurology 09/08/22 Ten Weber, [facility] [address] [place], [place] [id number] Transitional Care Pharmacist Pharmacy 09/19/22 10/17/22 Backwinder Relationship Specialty Start Date End Date Israel Pruitt, DO [address] [place] [address] PCP - General Internal Medicine 11/10/19 Laron Arreola 3975 [facility] [address] [place], [place] [phone] Orthopedics 11/22/20 Israel Minor MD [address], [place] 719166 Cardiology 02/27/22 Eveline Dean, JESSY [address] [place] [address] Supervisor Aircraft Maintenance 08/08/22 Randa Rowell, DO 1946 [facility] [address] [place], [place] [phone] Hematology/Oncology 09/08/22 Sanket Rob, DO [address] [place] [address] Neurology 09/08/22 Ten Weber, [facility] [address] [place], [place] [phone] Transitional Care Pharmacist Pharmacy 09/19/22 10/17/22 Backwinder Relationship Specialty Start Date End Date Israel Pruitt DO [address] [place] [address] PCP - General Internal Medicine 11/10/19 Laron Arreola 3976 [facility] [address] [place] [address] Orthopedics 11/22/20 Israel Minor MD [address] [place], [place] [phone] Cardiology 02/27/22 Eveline Dean, RN [address] [place], [place] [phone] Supervisor Aircraft Maintenance 08/08/22 Randa Rowell DO [address] [place] [address] [phone] Hematology/Oncology 09/08/22 Sanket Rob [address] [place] [address] Neurology 09/08/22 Backwinder Relationship Specialty Start Date End Date Israel Pruitt [address] [place] [address] PCP - General Internal Medicine 11/10/19 Laron Arreola [address] 131743 Orthopedics 11/22/20 Israel Minor MD [address] [place], [place] [phone] Cardiology 02/27/22 Eveline Dean, JESSY [address] [place], [place] 2762431 Supervisor Aircraft Maintenance 08/08/22 Randa Rowell DO [address] [place] [address] 310 [place], [place] [phone] Hematology/Oncology 09/08/22 Sanket Rob, DO [address] [place] [address] Neurology 09/08/22 Backwinder Relationship Specialty Start Date End Date Israel Pruitt Hamzah, DO [address] [place] [address] PCP - General Internal Medicine 11/10/19 Laron Arreola 3974 [facility] [address] [place] [address] Orthopedics 11/22/20 Israel Minor MD [address] [place] [address] Cardiology 02/27/22 Eveline Dean RN [address] [place] [phone] Supervisor Aircraft Maintenance 08/08/22 Randa Rowell, DO 1946 [facility] [address] [place], [place] [phone] Hematology/Oncology 09/08/22 Sanket Rob, DO [address] [place] [address] Neurology 09/08/22 Backwinder Relationship Specialty Start Date End Date Zabrinarenata Israel Hamzah, DO [address] [facility] [place] [address] PCP - General Internal Medicine 11/10/19 Laron Arreola 3972 [facility] [address] [place] [address] Orthopedics 11/22/20 Israel Minor MD [address] [place] [address] Cardiology 02/27/22 Eveline Dean, JESSY [address] [place] [address] Supervisor Aircraft Maintenance 08/08/22 Randa Rowell, [address] [place] [address] [phone] Hematology/Oncology 09/08/22 Sanket Rob, DO [address] [place] [address] Neurology 09/08/22 Backwinder Relationship Specialty Start Date End Date Israel Pruitt, DO [address] [place] [address] PCP - General Internal Medicine 11/10/19 Laron Arreola [address] [facility] [address] [address] Orthopedics 11/22/20 Israel Minor MD [address] [place], [place] 873476 Cardiology 02/27/22 Eveline Dean RN [address] [place] [address] Supervisor Aircraft Maintenance 08/08/22 Randa Rowell, [address] [place] [address] [phone] Hematology/Oncology 09/08/22 Sanket Rob, DO [address] [place] [address] Neurology 09/08/22 Backwinder Relationship Specialty Start Date End Date Israel Pruitt DO [address] [place] [address] PCP - General Internal Medicine 11/10/19 Laron Arreola 3973 [facility] [address] [place] [address] Orthopedics 11/22/20 Israel Minor MD [address] [place] [address] Cardiology 02/27/22 Eveline Dean, JESSY [address] [place] [address] Supervisor Aircraft Maintenance 08/08/22 Randa Rowell, DO [address] [place] [address] [phone] Hematology/Oncology 09/08/22 Sanket Rob DO [address] [place] [address] Neurology 09/08/22 Backwinder Relationship Specialty Start Date End Date Israel Pruitt DO [address] [place] [address] PCP - General Internal Medicine 11/10/19 Laron Arreola 3975 [facility] [address] [place] [address] Orthopedics 11/22/20 Israel Minor MD [address] [place], [place] 239383 [phone] Cardiology 02/27/22 Eveline Dean RN [address] [place] [address] Supervisor Aircraft Maintenance 08/08/22 Randa Rowell DO [address] [place] [address] [phone] Hematology/Oncology 09/08/22 Sanket Rob DO [address] [place] [address] Neurology 09/08/22 Backwinder Relationship Specialty Start Date End Date ZabrinaIsrael yanez Hamzah, DO [address] [place] [address] PCP - General Internal Medicine 11/10/19 Laron Arreola 3979 [facility] [address] [place], [place] 106749 [phone] Orthopedics 11/22/20 Israel Minor MD [address] [place], [place] [phone] Cardiology 02/27/22 Eveline Dean, JESSY [address] [place], [place] 4637131 Supervisor Aircraft Maintenance 08/08/22 Randa Rowell DO [address] [phone] Hematology/Oncology 09/08/22 Sanket Rob, DO [address] [place] [address] Neurology 09/08/22 Backwinder Relationship Specialty Start Date End Date Edmond Israel Hamzah, DO [address] [place] [address] PCP - General Internal Medicine 11/10/19 Laron Arreola 3975 [facility] [address] [place], [place] 059210 [phone] Orthopedics 11/22/20 Israel Minor MD [address] [place], [place] 372351 [phone] Cardiology 02/27/22 Eveline Dean, JESSY [address] [place], [place] 5996931 Supervisor Aircraft Maintenance 08/08/22 [place] [address] [place] [address] 310 [place] [address] Hematology/Oncology 09/08/22 Sanket Rob, DO [address] [place] [address] Neurology 09/08/22 Backwinder Relationship Specialty Start Date End Date Israel Pruitt DO [address] [place] [address] PCP - General Internal Medicine 11/10/19 Laron Arreola [address] [facility] [address] [address] Orthopedics 11/22/20 Israel Minor MD [address] [place], [place] 375426 Cardiology 02/27/22 Eveline Dean, RN [address] [place] [phone] Supervisor Aircraft Maintenance 08/08/22 Randa Rowell, [address] [place] [address] Hematology/Oncology 09/08/22 Sanket Rob, DO [address] [place] [address] Neurology 09/08/22 Backwinder Relationship Specialty Start Date End Date Israel Pruitt DO [address] [place] [address] PCP - General Internal Medicine 11/10/19 Laron Arreola [address] [place] [address] Orthopedics 11/22/20 Israel Minor MD [address] [place], [place] [phone] Cardiology 02/27/22 Eveline Dean RN [address] [place] [address] Supervisor Aircraft Maintenance 08/08/22 Randa Rowell, DO [address] [place] [address] 310 [place], [place] [phone] Hematology/Oncology 09/08/22 Sanket Rob, DO [address] [place] [address] Neurology 09/08/22 Backwinder Relationship Specialty Start Date End Date Israel Pruitt DO [address] [place] [address] PCP - General Internal Medicine 11/10/19 Laron Arreola 3975 [facility] [address] [place] [address] Orthopedics 11/22/20 Israel Minor MD [address] [place], [place] [phone] Cardiology 02/27/22 Eveline Dean RN [address] [place] [address] Supervisor Aircraft Maintenance 08/08/22 Randa Rowell, DO [facility] [address] [phone] Hematology/Oncology 09/08/22 Sanket Rob, DO [address] [place] [address] Neurology 09/08/22 Backwinder Relationship Specialty Start Date End Date Israel Pruitt DO [address] [place] [address] PCP - General Internal Medicine 11/10/19 Laron Arreola [address] [place] [address] Orthopedics 11/22/20 Israel Minor MD [address] [place], [place] 425946 [phone] Cardiology 02/27/22 Eveline Dean, JESSY [address] [place], [place] 9939331 Supervisor Aircraft Maintenance 08/08/22 Randa Rowell DO [address] [place] [address] [phone] Hematology/Oncology 09/08/22 Sanket Rob, [address] [place] [address] Neurology 09/08/22 Backwinder Relationship Specialty Start Date End Date Israel Pruitt [address] [place] [address] PCP - General Internal Medicine 11/10/19 Laron Arreola [address] [place] [address] Orthopedics 11/22/20 Israel Minor MD [address] [place], [place] 746340 [phone] Cardiology 02/27/22 Eveline Dean, JESSY [address] [place], [place] 7205431 Supervisor Aircraft Maintenance 08/08/22 Randa Rowell DO [address] [place] [address] [phone] Hematology/Oncology 09/08/22 Sanket Rob, DO [address] [place] [address] Neurology 09/08/22 Backwinder Relationship Specialty Start Date End Date Israel Pruitt Hamzah, DO [address] [place] [address] PCP - General Internal Medicine 11/10/19 Laron Arreola 3977 [facility] [address] [place] [address] Orthopedics 11/22/20 Israel Minor MD [address] [place], [place] 959996 Cardiology 02/27/22 Eveline Dean, JESSY [address] [place] [address] Supervisor Aircraft Maintenance 08/08/22 Randa Rowell, DO 1946 [facility] 310 [place], [place] 504105 Hematology/Oncology 09/08/22 Sanket Rob, DO [address] [place] [address] Neurology 09/08/22 Backwinder Relationship Specialty Start Date End Date Zabrinarenata Israel Hamzah, DO [address] [place] [address] PCP - General Internal Medicine 11/10/19 Laron Arreola [address] [place] [address] Orthopedics 11/22/20 Israel Minor MD [address] 119094 [phone] Cardiology 02/27/22 Eveline Dean RN [address] [place], [place] 0009831 Supervisor Aircraft Maintenance 08/08/22 Randa Rowell, DO [address] [place] [address] [phone] Hematology/Oncology 09/08/22 Sanket Rob, DO [address] [place] [address] Neurology 09/08/22 Backwinder Relationship Specialty Start Date End Date Israel Pruitt, DO [address] [place] [address] PCP - General Internal Medicine 11/10/19 Laron Arreola [address] [place] [address] Orthopedics 11/22/20 Israel Minor MD [address] [place] [address] Cardiology 02/27/22 Eveline Dean RN [address] [place] [address] Supervisor Aircraft Maintenance 08/08/22 Randa Rowell, DO [address] [place] [address] [phone] Hematology/Oncology 09/08/22 Sanket Rob, DO [address] [place] [address] Neurology 09/08/22 Backwinder Relationship Specialty Start Date End Date Israel Pruitt DO [address] [place] [address] PCP - General Internal Medicine 11/10/19 Laron Arreola [address] [place] [address] Orthopedics 11/22/20 Israel Minor MD [address] [place] [address] Cardiology 02/27/22 Eveline Dean, JESSY [address] [place], [place] 4665431 Supervisor Aircraft Maintenance 08/08/22 Randa Rowell DO [address] [place] [address] [phone] Hematology/Oncology 09/08/22 Sanket Rob DO [address] [place] [address] Neurology 09/08/22 Backwinder Relationship Specialty Start Date End Date Israel Pruitt DO [address] [place] [address] PCP - General Internal Medicine 11/10/19 Laron Arreola 3975 [facility] [address] [place] [address] Orthopedics 11/22/20 Israel Minor MD [address] [place], [place] [id number] [phone] Cardiology 02/27/22 Eveline Dean, JESSY [address] [place] [address] Supervisor Aircraft Maintenance 08/08/22 Randa Rowell DO [address] [place] [address] [phone] Hematology/Oncology 09/08/22 Sanket Rob DO [address] [place] [address] Neurology 09/08/22 Backwinder Relationship Specialty Start Date End Date Israel Pruitt, DO [address] [place] [address] PCP - General Internal Medicine 11/10/19 Laron Arreola [address] [place], [place] 716234 [phone] Orthopedics 11/22/20 Israel Minor MD [address] [place], [place] 283661 [phone] Cardiology 02/27/22 Eveline Dean, JESSY [address] [place], [place] 0817931 Supervisor Aircraft Maintenance 08/08/22 Randa Rowell, DO [facility] [address] [phone] Hematology/Oncology 09/08/22 Sanket Rob, DO [address] [place] [address] Neurology 09/08/22 Backwinder Relationship Specialty Start Date End Date Israel Pruitt, DO [address] [place] [address] PCP - General Internal Medicine 11/10/19 Laron Arreola [address] [place], [place] 071593 Orthopedics 11/22/20 Israel Minor MD [address] [place], [place] 634976 Cardiology 02/27/22 Eveline Dean, JESSY [address] [place] [address] Supervisor Aircraft Maintenance 08/08/22 Randa Rowell, DO [address] [phone] Hematology/Oncology 09/08/22 Sanket Rob, DO [address] [place] [address] Neurology 09/08/22 Backwinder Relationship Specialty Start Date End Date Israel Pruitt, DO [address] [place] [address] PCP - General Internal Medicine 11/10/19 Laron Arreola [address] [address] Orthopedics 11/22/20 Israel Minor MD [address] [place], [place] [phone] Cardiology 02/27/22 Eveline Dean, RN [address] [place] [phone] Supervisor Aircraft Maintenance 08/08/22 Randa Rowell DO [address] [address] Hematology/Oncology 09/08/22 Sanket Rob, DO [address] [place] [address] Neurology 09/08/22 Backwinder Relationship Specialty Start Date End Date Israel Pruitt DO [address] [place] [address] PCP - General Internal Medicine 11/10/19 Laron Arreola [address] [facility] [address] [place] [address] Orthopedics 11/22/20 Israel Minor MD [address] [place], [place] 370066 Cardiology 02/27/22 Eveline Dean RN [address] [place] [address] Supervisor Aircraft Maintenance 08/08/22 Randa Rowell, DO [address] [place] [address] [phone] Hematology/Oncology 09/08/22 Sanket Rob, DO [address] [place] [address] Neurology 09/08/22 Backwinder Relationship Specialty Start Date End Date Israel Pruitt DO [address] [place] [address] PCP - General Internal Medicine 11/10/19 Laron Arreola [address] [address] Orthopedics 11/22/20 Israel Minor MD [address] [place], [place] [phone] Cardiology 02/27/22 Eveline Dean RN [address] [place] [address] Supervisor Aircraft Maintenance 08/08/22 Randa Rowell, DO [address] [place] [address] [phone] Hematology/Oncology 09/08/22 Sanket Rob, DO [address] [place] [address] Neurology 09/08/22 Backwinder Relationship Specialty Start Date End Date Israel Pruitt DO [address] [place] [address] PCP - General Internal Medicine 11/10/19 Laron Arreola [address] [place] [address] Orthopedics 11/22/20 Israel Minor MD [address] [place], [place] [id number] [phone] Cardiology 02/27/22 Eveline Dean, JESSY [address] [place] [address] Supervisor Aircraft Maintenance 08/08/22 Randa Rowell DO [address] [place] [address] [phone] Hematology/Oncology 09/08/22 Sanket Rob DO [address] [place] [address] Neurology 09/08/22 Backwinder Relationship Specialty Start Date End Date Israel Pruitt DO [address] [place] [address] PCP - General Internal Medicine 11/10/19 Laron Arreola [address] [place] [address] Orthopedics 11/22/20 Israel Minor MD [address] [place], [place] 788332 [phone] Cardiology 02/27/22 Eveline Dean, JESSY [address] [place], [place] 6775431 Supervisor Aircraft Maintenance 08/08/22 Randa Rowell DO [address] [place] [address] [phone] Hematology/Oncology 09/08/22 Sanket Rob DO [address] [place] [address] Neurology 09/08/22 Backwinder Relationship Specialty Start Date End Date Israel Pruitt, DO [address] [place] [address] PCP - General Internal Medicine 11/10/19 Laron Arreola 3977 [facility] [address] [place] [address] Orthopedics 11/22/20 Israel Minor MD [address] [place], [place] [phone] Cardiology 02/27/22 Eveline Dean RN [address] [place] [address] Supervisor Aircraft Maintenance 08/08/22 Randa Rowell, DO 1946 [facility] [address] [place], [place] 753455 Hematology/Oncology 09/08/22 Sanket Rob, [address] [place] [address] Neurology 09/08/22 Backwinder Relationship Specialty Start Date End Date ZabrinaIsrael yanez Hamzah, DO [address] [place] [address] PCP - General Internal Medicine 11/10/19 Laron Arreola [address] [facility] [address] [place] [address] Orthopedics 11/22/20 Israel Minor MD [address] [place] 063694 [phone] Cardiology 02/27/22 Eveline Dean RN [address] [place] [address] Supervisor Aircraft Maintenance 08/08/22 Randa Rowell, DO [address] [place] [address] [phone] Hematology/Oncology 09/08/22 Sanket Rob, DO [address] [place] [address] Neurology 09/08/22 Backwinder Relationship Specialty Start Date End Date Israel Pruitt, DO [address] [facility] [place] [address] PCP - General Internal Medicine 11/10/19 Laron Arreola [address] [place] [address] Orthopedics 11/22/20 Israel Minor MD [facility] [place] [address] Cardiology 02/27/22 Eveline Dean RN [address] [place] [address] Supervisor Aircraft Maintenance 08/08/22 Randa Rowell, DO [address] [place] [address] [phone] Hematology/Oncology 09/08/22 Sanket Rob, DO [address] [place] [address] Neurology 09/08/22 Backwinder Relationship Specialty Start Date End Date Israel Pruitt DO [address] [place] [address] PCP - General Internal Medicine 11/10/19 Laron Arreola [address] [place], [place] [id number] Orthopedics 11/22/20 Israel Minor MD [address] [place], [place] [id number] Cardiology 02/27/22 Eveline Dean, JESSY [address] [place] [address] Supervisor Aircraft Maintenance 08/08/22 Randa Rowell, [address] [place], [place] [phone] Hematology/Oncology 09/08/22 [facility] [address] [place] [address] Neurology 09/08/22 Ruby Duff RN [address] [place], [place] [phone] Specialty Java Sybase Developer Hematology/Oncology 04/03/23 Backwinder Relationship Specialty Start Date End Date Israel Pruitt [address] [place] [address] PCP - General Internal Medicine 11/10/19 Laron Arreola [address] [phone] Orthopedics 11/22/20 Israel Minor MD [address] [place], [place] 470746 Cardiology 02/27/22 Eveline Dean, JESSY [address] [place] [address] Supervisor Aircraft Maintenance 08/08/22 Randa Rowell DO [address] [place] [address] [phone] Hematology/Oncology 09/08/22 Sanket Rob, DO [address] [place] [address] Neurology 09/08/22 Ruby Duff, RN [address] [place] [address] Specialty Java Sybase Developer Hematology/Oncology 04/03/23 Backwinder Relationship Specialty Start Date End Date Israel Pruitt, DO [address] [place] [address] PCP - General Internal Medicine 11/10/19 Laron Arreola [address] [place] [address] 102 [place] [address] Orthopedics 11/22/20 Israel Minor MD [address] [place], [place] [phone] Cardiology 02/27/22 Eveline Dean RN [address] [place], [place] 5488431 Supervisor Aircraft Maintenance 08/08/22 Randa Rowell DO 1946 [facility] [address] [place], [place] [phone] Hematology/Oncology 09/08/22 Sanket Rob, DO [address] [place] [address] Neurology 09/08/22 Ruby Duff RN [address] [place] [address] Specialty Java Sybase Developer Hematology/Oncology 04/03/23 Backwinder Relationship Specialty Start Date End Date Israel Pruitt DO [address] [place] [address] PCP - General Internal Medicine 11/10/19 [address] Ar[address] [place], [place] 124433 Orthopedics 11/22/20 Israel Minor MD [address] [place], [place] 264389 [phone] Cardiology 02/27/22 Eveline Dean, JESSY [address] [place], [place] 5995131 Supervisor Aircraft Maintenance 08/08/22 Randa Rowell, DO 1946 [facility] [address] [place], [place] [phone] Hematology/Oncology 09/08/22 Sanket Rob, [address] [place] [address] Neurology 09/08/22 Ruby Duff, JESSY [address] [place] [address] Specialty Java Sybase Developer Hematology/Oncology 04/03/23 Backwinder Relationship Specialty Start Date End Date Israel Pruitt, [address] [place] [address] PCP - General Internal Medicine 11/10/19 Laron Arreola [address] [facility] [address] [place] [address] Orthopedics 11/22/20 Israel Minor MD [address] [place], [place] [id number] [phone] Cardiology 02/27/22 Eveline Dean, JESSY [address] [place] [address] Supervisor Aircraft Maintenance 08/08/22 Randa Rowell, DO [facility]6 [facility] [address] [place] [address] Hematology/Oncology 09/08/22 Sanket Rob, DO [address] [place] [address] Neurology 09/08/22 Ruby Duff, JESSY [address] [place] [address] Specialty Java Sybase Developer Hematology/Oncology 04/03/23 Backwinder Relationship Specialty Start Date End Date Israel Pruitt DO [address] [place] [address] PCP - General Internal Medicine 11/10/19 Laron Arreola 3975 [facility] [address] [place], [place] [phone] Orthopedics 11/22/20 Israel Minor MD [address] [place], [place] 561826 Cardiology 02/27/22 Eveline Dean, JESSY [address] [place] [address] Supervisor Aircraft Maintenance 08/08/22 Randa Rowell, 1946 [facility] [address] [place], [place] [phone] Hematology/Oncology 09/08/22 Sanket Rob, DO [address] [place] [address] Neurology 09/08/22 Ruby Duff, JESSY [address] [place] [address] Specialty Java Sybase Developer Hematology/Oncology 04/03/23 Backwinder Relationship Specialty Start Date End Date Israel Pruitt DO [address] [place] [address] PCP - General Internal Medicine 11/10/19 Laron Arreola [address] 727663 Orthopedics 11/22/20 Israel Minor MD [address] [place], [place] [phone] Cardiology 02/27/22 Eveline Dean, JESSY [address] [place] [address] Supervisor Aircraft Maintenance 08/08/22 Randa Rowell DO 1946 [facility] [address] [place], [place] [phone] Hematology/Oncology 09/08/22 Sanket Rob, [address] [place] [address] Neurology 09/08/22 Ruby Duff, JESSY [address] [place], [place] [phone] Specialty Java Sybase Developer Hematology/Oncology 04/03/23 Backwinder Relationship Specialty Start Date End Date Israel Pruitt DO [address] [place] [address] PCP - General Internal Medicine 11/10/19 Laron Arreola [address] [id number] Orthopedics 11/22/20 Israel Minor MD [address] [place], [place] [id number] Cardiology 02/27/22 Eveline Dean, JESSY [address] [place] [address] Supervisor Aircraft Maintenance 08/08/22 Randa Rowell, DO 1946 [facility] [address] [place], [place] 945635 Hematology/Oncology 09/08/22 Sanket Rob, [address] [place] [address] Neurology 09/08/22 Ruby Duff, JESSY [address] [facility] [place] [place] 294039 [phone] Specialty Java Sybase Developer Hematology/Oncology 04/03/23 Backwinder Relationship Specialty Start Date End Date Israel Pruitt, [address] [place] [address] PCP - General Internal Medicine 11/10/19 Laron Arreola 3975 [facility] [address] [place], [place] [phone] Orthopedics 11/22/20 Israel Minor MD [address] [place], [place] 108566 Cardiology 02/27/22 Randa Rowell, DO 1946 [facility] [address] [place], [place] [phone] Hematology/Oncology 09/08/22 Sanket Rob, [address] [place] [address] Neurology 09/08/22 Ruby Duff RN [address] [place] [address] Specialty Java Sybase Developer Hematology/Oncology 04/03/23 Ginna Em RN 6[address] [place] [address] Supervisor Aircraft Maintenance Unspecified 04/15/23 Backwinder Relationship Specialty Start Date End Date ZabrinaIsrael yanez Hamzah, DO [address] [place] [address] PCP - General Internal Medicine 11/10/19 Laron Arreola 5102 [facility] 102 [place] [address] Orthopedics 11/22/20 Israel Minor MD [address] [place], [place] 132206 Cardiology 02/27/22 Randa Rowell DO 1946 [facility] 310 [place], [place] [phone] Hematology/Oncology 09/08/22 Sanket Rob, [address] [place] [id number] Neurology 09/08/22 Ruby Duff, JESSY [address] [facility] [place] [address] Specialty Java Sybase Developer Hematology/Oncology 04/03/23 Ginna Em, RN [address] [place] [address] Supervisor Aircraft Maintenance Unspecified 04/15/23 Backwinder Relationship Specialty Start [place] [address] [place] [address] PCP - General Internal Medicine 11/10/19 Laron Arreola [address] [facility] [address] [place] [address] Orthopedics 11/22/20 Israel Minor MD [address], [place] 212616 Cardiology 02/27/22 Randa Rowell, DO 1946 [facility] [address] [place], [place] [address]35 Hematology/Oncology 09/08/22 Sanket Rob, DO [address] [place] [address] Neurology 09/08/22 Ruby Duff RN [address] [place] [address] Specialty Java Sybase Developer Hematology/Oncology 04/03/23 Ginna Em RN [address] [place] [address] Supervisor Aircraft Maintenance Unspecified 04/15/23 Backwinder Relationship Specialty Start Date End Date Israel Pruitt, [address] [place] [address] PCP - General Internal Medicine 11/10/19 Laron Arreola [address] [id number] Orthopedics 11/22/20 Israel Minor MD [address] [place], [place] [id number] Cardiology 02/27/22 Randa Rowell, DO 1946 [facility] [address] [place], [place] [address]305 Hematology/Oncology 09/08/22 Sanket Rob, DO [address] [place] [address] Neurology 09/08/22 Ruby Duff RN [address] [place] [address] Specialty Java Sybase Developer Hematology/Oncology 04/03/23 Ginna Em, RN [address] [place], [place] 6666331 Supervisor Aircraft Maintenance Unspecified 04/15/23 Backwinder Relationship Specialty Start Date End Date Israel Pruitt, DO [address] [place] [address] PCP - General Internal Medicine 11/10/19 Laron Arreola [address] [place] [address] Orthopedics 11/22/20 Israel Minor MD [facility] [place] [address] Cardiology 02/27/22 Randa Rowell, DO 1946 [facility] [address] [place], [place] [id number] Hematology/Oncology 09/08/22 Sanket Rob, DO [address] [place] [address] Neurology 09/08/22 Ruby Duff, JESSY [address] [place] [address] Specialty Java Sybase Developer Hematology/Oncology 04/03/23 Ginna Em, RN [address] [place] [address] Supervisor Aircraft Maintenance Unspecified 04/15/23 Backwinder Relationship Specialty Start Date End Date Zabrinarenata Israel Hamzah, DO [address] [place] [address] PCP - General Internal Medicine 11/10/19 Laron Arreola [address] [place] [address] Orthopedics 11/22/20 Israel Minor MD [address], [place] 7[address]05 [phone] Cardiology 02/27/22 Sanket Rob, DO [address] [place] [address] Neurology 09/08/22 Ruby Duff RN [address] [place] [address] Specialty Java Sybase Developer Hematology/Oncology 04/03/23 Ginna Em RN [address] [place], [place] [phone] Supervisor Aircraft Maintenance Unspecified 04/15/23 Backwinder Relationship Specialty Start Date End Date Israel Pruitt DO [address] [place] [address] PCP - General Internal Medicine 11/10/19 Laron Arreola 39[address] [facility] [address] [place] [address] Orthopedics 11/22/20 Israel Minor MD [address] [place] [address] Cardiology 02/27/22 Sanket Rob, DO [address] [place] [address] Neurology 09/08/22 Ruby Duff RN [address] [place] [address] Specialty Java Sybase Developer Hematology/Oncology 04/03/23 Ginna Em RN [address] [place] [address] Supervisor Aircraft Maintenance Unspecified 04/15/23 Backwinder Relationship Specialty Start Date End Date Israel Pruitt, DO [address] [facility] [place] [address] PCP - General Internal Medicine 11/10/19 Laron Arreola [address] [facility] [address] [place] [address] Orthopedics 11/22/20 Israel Minor MD [address] [place], [place] [id number] [phone] Cardiology 02/27/22 Sanket Rob, DO [address] [place] [address] Neurology 09/08/22 Ruby Duff RN [address] [place] [address] Specialty Java Sybase Developer Hematology/Oncology 04/03/23 Ginna Em, RN [address] [place] [phone] Supervisor Aircraft Maintenance Unspecified 04/15/23 Backwinder Relationship Specialty Start Date End Date Israel Pruitt, DO [address] [facility] [place] [address] PCP - General Internal Medicine 11/10/19 Laron Arreola 3975 [facility] [address] [place] [address] Orthopedics 11/22/20 Israel Minor MD [address] [place] [address] Cardiology 02/27/22 Sanket Rob DO [address] [place] [address] Neurology 09/08/22 Ruby Duff, JESSY [address] [place] [address] Specialty Java Sybase Developer Hematology/Oncology 04/03/23 Ginna Em, RN [address] [place], [place] [phone] Supervisor Aircraft Maintenance Unspecified 04/15/23 Backwinder Relationship Specialty Start Date End Date Israel Pruitt, DO [address] [place] [address] PCP - General Internal Medicine 11/10/19 Laron Arreola [address] [place] [address] Orthopedics 11/22/20 Israel Minor MD [address] [place] [address] Cardiology 02/27/22 Sanket Rob, DO [address] [place] [address] Neurology 09/08/22 Ruby Duff RN [address] [place] [address] Specialty Java Sybase Developer Hematology/Oncology 04/03/23 Ginna Em, RN [address] [place] [address] Supervisor Aircraft Maintenance Unspecified 04/15/23 Backwinder Relationship Specialty Start Date End Date Israle Pruitt DO [address] [place] [address] PCP - General Internal Medicine 11/10/19 Laron Arreola [address] [place] [address] Orthopedics 11/22/20 Israel Minor MD [address] [place] [address] Cardiology 02/27/22 Sanket Rob, DO [address] [place] [address] Neurology 09/08/22 Ruby Duff RN [address] [place] [address] Specialty Java Sybase Developer Hematology/Oncology 04/03/23 Ginna Em, JESSY [address] [place], [place] 9145131 Supervisor Aircraft Maintenance Unspecified 04/15/23 Backwinder Relationship Specialty Start Date End Date Israel Pruitt, DO [address] [place] [address] PCP - General Internal Medicine 11/10/19 Laron Arreola [address] [facility] [address] [place] [address] Orthopedics 11/22/20 Israel Minor MD [address] [place] [address] Cardiology 02/27/22 Sanket Rob, DO [address] [place] [address] Neurology 09/08/22 Ruby Duff RN [address] [place] [address] Specialty Java Sybase Developer Hematology/Oncology 04/03/23 Ginna Em, JESSY [address] [place], [place] [phone] Supervisor Aircraft Maintenance Unspecified 04/15/23 Backwinder Relationship Specialty Start Date End Date Israel Pruitt DO [address] [facility] [place] [address] PCP - General Internal Medicine 11/10/19 Laron Arreola [address] [place] [address] Orthopedics 11/22/20 Israel Minor MD [address] [place], [place] 01087443 [phone] Cardiology 02/27/22 Sanket Rob, DO [address] [place] [address] Neurology 09/08/22 Ruby Duff RN [address] [place] [address] Specialty Java Sybase Developer Hematology/Oncology 04/03/23 Ginna Em, JESSY [address] [place] [phone] Supervisor Aircraft Maintenance Unspecified 04/15/23 Backwinder Relationship Specialty Start Date End Date JovannyjoanIsrael yanez, DO [address] [place] [address] PCP - General Internal Medicine 11/10/19 Laron Arreola [address] [place] [address] Orthopedics 11/22/20 Israel Minor MD [address] [place], [place] 759977 [phone] Cardiology 02/27/22 Sanket Rob, DO [address] [place] [address] Neurology 09/08/22 Ruby Duff, JESSY [address] [place], [place] 054771 Specialty Java Sybase Developer Hematology/Oncology 04/03/23 Ginna Em, RN [address] [place], [place] 4502831 Supervisor Aircraft Maintenance Unspecified 04/15/23 Backwinder Relationship Specialty Start Date End Date Israel Pruitt, DO [address] [place] [address] PCP - General Internal Medicine 11/10/19 Laron Arreola [address] [facility] [address] [place] [address] Orthopedics 11/22/20 Israel Minor MD [address] [place], [place] 088916 Cardiology 02/27/22 Sanket Rob, DO [address] [place] [address] Neurology 09/08/22 Ruby Duff RN [address] [facility] [place] [address] Specialty Java Sybase Developer Hematology/Oncology 04/03/23 Ginna Em, JESSY [address] [place] [address] Supervisor Aircraft Maintenance Unspecified 04/15/23 Team Status: Active Member Role Status Dates Dr. Arturo Guerrero MD Family Provider Active Hamzah Pruitt Primary Care Provider Active Team Status: Inactive Member Role Status Dates Dr. Ned Dinh MD Attending Provider Active Team Status: Active Member Role Status Dates [facility] Attending Provider Active Team Status: Active Member Role Status Dates Dr. Pedro Diaz MD Emergency Provider Active Edmond Goodson Primary Care Provider Active Dr. Mary Prather MD Admit Provider, Attending Provid er Active Backwinder Relationship Specialty Start Date End Date Israel Pruitt, DO [address] [facility] [place] [address] PCP - General Internal Medicine 11/10/19 Laron Arreola [address] [facility] [address] [place] [address] Orthopedics 11/22/20 Israel Minor MD [address] [place], [place] 564776 Cardiology 02/27/22 Sanket Rob, DO [address] [place] [address] Neurology 09/08/22 Ruby Duff, JESSY [address] [place], [place] [id number] Specialty Java Sybase Developer Hematology/Oncology 04/03/23 Ginna Em, RN [address] [place], [place] [phone] Supervisor Aircraft Maintenance Unspecified 04/15/23 Team Status: Active Member Role [...] Dr. Homer Marsh MD Other Provider Active Backwinder Relationship Specialty Start Date End Date Israel Pruitt DO [address] [place] [address] PCP - General Internal Medicine 11/10/19 Laron Arreola [address] [place] [address] Orthopedics 11/22/20 Israel Minor MD [address] [place] [address] Cardiology 02/27/22 Sanket Rob DO [address] [place] [address] Neurology 09/08/22 Ruby Duff, JESSY [address] [facility] [place] [place] [address] Specialty Java Sybase Developer Hematology/Oncology 04/03/23 Ginna Em, RN [address] [place] [address] Supervisor Aircraft Maintenance Unspecified 04/15/23 Ileana Sosa RN Specialty Java Sybase Developer 05/19/23 Backwinder Relationship Specialty Start Date End Date Israel Pruitt DO [address] [place] [address] PCP - General Internal Medicine 11/10/19 Laron Arreola [address] [place], [place] 300303 Orthopedics 11/22/20 Israel Minor MD [address] [place] [address] Cardiology 02/27/22 Randa Rowell DO [facility]6 [facility] [address] [place], [place] 885555 Hematology/Oncology 09/08/22 05/04/23 Sanket Rob DO [address] [place] [address] Neurology 09/08/22 Ruby Duff, JESSY [address] [facility] [place], [place] [address]11 Specialty Java Sybase Developer Hematology/Oncology 04/03/23 Ginna Em, JESSY [address] [place], [place] 2624331 Supervisor Aircraft Maintenance Unspecified 04/15/23 Ileana Sosa RN Specialty Java Sybase Developer 05/19/23 Backwinder Relationship Specialty Start Date End Date Israel Pruitt DO [address] [place] [address] PCP - General Internal Medicine 11/10/19 Laron Arreola 3975 [facility] [address] [place], [place] [address] Orthopedics 11/22/20 Israel Minor MD [address] [place], [place] 775706 Cardiology 02/27/22 Sanket Rob, [address] [place] [address] Neurology 09/08/22 Ruby Duff, JESSY [address] [place], [place] 532[address] Specialty Java Sybase Developer Hematology/Oncology 04/03/23 Ginna Em, RN [address] [place], [place] 3147931 Supervisor Aircraft Maintenance Unspecified 04/15/23 Ileana Sosa RN Specialty Java Sybase Developer 05/19/23 Backwinder Relationship Specialty Start Date End Date Israel Pruitt DO [address] [place] [address] PCP - General Internal Medicine 11/10/19 Laron Arreola 3975 [facility] [address] [place] [address] Orthopedics 11/22/20 Israel Minor MD [address] [place] [address] Cardiology 02/27/22 Sanket Rob, [address] [place] [address] Neurology 09/08/22 Ruby Duff RN [address] [place], [place] [id number] Specialty Java Sybase Developer Hematology/Oncology 04/03/23 Ginna Em, RN [address] [place], [place] 2371731 Supervisor Aircraft Maintenance Unspecified 04/15/23 Doup, Ileana, RN Specialty Java Sybase Developer 05/19/23 Backwinder Relationship Specialty Start Date End Date ZabrinaIsrael yanez [address] [place] [address] PCP - General Internal Medicine 11/10/19 Laron Arreola [address] [facility] [address] [place], [place] [address] Orthopedics 11/22/20 Israel Minor MD [address] [place] [place], [place] 053396 Cardiology 02/27/22 Sanket Rob DO [address] [place] [address] Neurology 09/08/22 Ruby Duff, JESSY [address] [place], [place] 044341 Specialty Java Sybase Developer Hematology/Oncology 04/03/23 Ginna Em, RN [address] [place] [address] Supervisor Aircraft Maintenance Unspecified 04/15/23 Ileana Sosa RN Specialty Java Sybase Developer 05/19/23 Backwinder Relationship Specialty Start Date End Date ZabrinaIsrael yanez HamzahDO [address] [place] [address] PCP - General Internal Medicine 11/10/19 Laron Arreola [address] [facility] [address] [facility] [address] [place] [address] Orthopedics 11/22/20 Israel Minor MD [address] [place] [address] Cardiology 02/27/22 Sanket Rob DO [address] [place] [address] Neurology 09/08/22 Ruby Duff RN [address] [place], [place] 757221 Specialty Java Sybase Developer Hematology/Oncology 04/03/23 Ginna Em, RN [address] [place], [place] 8569631 Supervisor Aircraft Maintenance Unspecified 04/15/23 Ileana Sosa RN Specialty Java Sybase Developer 05/19/23 Backwinder Relationship Specialty Start Date End Date Israel Pruitt DO [address] [place] [address] PCP - General Internal Medicine 11/10/19 06/14/23 Laron Arreola [address] [facility] [address] [place] [address] Orthopedics 11/22/20 Israel Minor MD [address] [place] [address] Cardiology 02/27/22 Sanket Rob, [address] [place] [address] Neurology 09/08/22 Ruby Duff RN [address] [place], [place] 004581 Specialty Java Sybase Developer Hematology/Oncology 04/03/23 Ginna Em RN [address] [place] [address] Supervisor Aircraft Maintenance Unspecified 04/15/23 Ileana Sosa, RN Specialty Java Sybase Developer 05/19/23 Backwinder Relationship Specialty Start Date End Date Ronaldo Pleitez MD [address] [place], [place] 246981 PCP - General Internal Medicine 06/15/23 Laron Arreola [address] [facility] [address] [place] [address] Orthopedics 11/22/20 Israel Minor MD [address] [place] [address] Cardiology 02/27/22 Sanket Rob DO [address] [place] [address] Neurology 09/08/22 Ruby Duff, JESSY [address] [place] [address] Specialty Java Sybase Developer Hematology/Oncology 04/03/23 Ginna Em, JESSY [address] [place] [address] Supervisor Aircraft Maintenance Unspecified 04/15/23 Ileana Sosa, RN Specialty Java Sybase Developer 05/19/23 Team Status: Active Member Role [...] Team Status: Inactive Member Role Status Dates [facility] Attending Provider Active Team Status: Active Member Role Status Dates edmond saravia Attending Provider Active Team Status: Inactive Member Role Status Dates Edmond Goodson Primary Care Provider Active Dr. Baljinder Galloway DO Attending Provider, Referring Prov ider Active Team Status: Active Member Role Status Dates Out of [facility] Doctor Primary Care Provider Active Ronaldo CASSIDY MD Attending Provider, Referring Provider Active Team Status: Inactive Member Role Status Dates edmond saravia Attending Provider Active Team Status: Inactive Member Role Status Dates Out of Town Doctor Primary Care Provider Active Ronaldo CASSIDY MD Attending Provider, Referring Provider Active Backwinder Relationship Specialty Start Date End Date Ronaldo Pleitez MD [address] [place] [address] PCP - General Internal Medicine 06/15/23 Laron Arreola [address] [facility] [address] [place] [address] Orthopedics 11/22/20 Israel Minor MD [facility] [place] [address] Cardiology 02/27/22 Sanket Rob DO [address] [place] [address] Neurology 09/08/22 Ruby Duff, JESSY [address] [facility] [place] [place], [place] [address] Specialty Java Sybase Developer Hematology/Oncology 04/03/23 Ginna Em, JESSY [address] [place] [address] Supervisor Aircraft Maintenance Unspecified 04/15/23 Ileana Sosa RN Specialty Java Sybase Developer 05/19/23 Backwinder Relationship Specialty Start Date End Date Ronaldo Pleitez MD [address] [place] [address] PCP - General Internal Medicine 06/15/23 Laron Arreola [address] [facility] [address] [place] [address] Orthopedics 11/22/20 Israel Minor MD [address] [place] [address] Cardiology 02/27/22 Sanket Rob, [address] [place] [address] Neurology 09/08/22 Ruby Duff, JESSY [address] [facility] [place], [place] [address]44231 Specialty Java Sybase Developer Hematology/Oncology 04/03/23 Ginna Em RN [address] [place], [place] 5373731 Supervisor Aircraft Maintenance Unspecified 04/15/23 Ileana Sosa, JESSY Specialty Java Sybase Developer 05/19/23 Backwinder Relationship Specialty Start Date End Date Ronaldo Pleitez MD [address] [place] [address] PCP - General Internal Medicine 06/15/23 Laron Arreola [address] [address] Orthopedics 11/22/20 Israel Minor MD [address] [place] [address] Cardiology 02/27/22 Sanket Rob DO [address] [place] [address] Neurology 09/08/22 Ruby Duff RN [address] [facility] [place], [place] [address] Specialty Java Sybase Developer Hematology/Oncology 04/03/23 Ginna Em, RN [address] [place] [address] Supervisor Aircraft Maintenance Unspecified 04/15/23 Ileana Sosa RN Specialty Java Sybase Developer 05/19/23 Backwinder Relationship Specialty Start Date End Date Ronaldo Pleitez MD [address] [place], [place] 04[address] PCP - General Internal Medicine 06/15/23 Laron Arreola [address] [facility] [address] [place] [address] Orthopedics 11/22/20 Israel Minor MD [address] [place] [address] Cardiology 02/27/22 Sanket Rob DO [address] [place] [address] Neurology 09/08/22 Ruby Duff, JESSY [address] [place], [place] 91636691 Specialty Java Sybase Developer Hematology/Oncology 04/03/23 Ginna Em, RN [address] [place] [address] Supervisor Aircraft Maintenance Unspecified 04/15/23 Ileana Sosa RN Specialty Java Sybase Developer 05/19/23 Backwinder Relationship Specialty Start Date End Date Ronaldo Pleitez MD [address] [place] [address] PCP - General Internal Medicine 06/15/23 Laron Arreola [address] [facility] [address] [place], [place] 413493 Orthopedics 11/22/20 Israel Minor MD [address] [place] [address] Cardiology 02/27/22 Sanket oRb DO [address]8 [place] [address] Neurology 09/08/22 Ruby Duff, JESSY [address] [place] [address] Specialty Java Sybase Developer Hematology/Oncology 04/03/23 Ginna Em, RN [address] [place], [place] 3256631 Supervisor Aircraft Maintenance Unspecified 04/15/23 Ileana Sosa RN Specialty Java Sybase Developer 05/19/23 Backwinder Relationship Specialty Start Date End Date Ronaldo Pleitez MD [address] [place] [address] PCP - General Internal Medicine 06/15/23 Laron Arreola [address] [facility] [address] [address] Orthopedics 11/22/20 Israel Minor MD [address] [place] [address] Cardiology 02/27/22 Sanket Rob DO [address] [place] [address] Neurology 09/08/22 Ruby Duff RN [address] [place], [place] 716391 Specialty Java Sybase Developer Hematology/Oncology 04/03/23 Ginna Em, RN [address] [place], [place] 0164531 Supervisor Aircraft Maintenance Unspecified 04/15/23 Ileana Sosa RN Specialty Java Sybase Developer 05/19/23 Backwinder Relationship Specialty Start Date End Date ZabrinarenataIsrael [address] [place], [place] [address] PCP - General Internal Medicine 11/10/19 06/14/23 Laron Arreola [address] [facility] [address] [place], [place] 383[address] Orthopedics 11/22/20 Israel Minor MD [address] [place] [address] Cardiology 02/27/22 Sanket Rob [address] [place] [address] Neurology 09/08/22 Ruby Duff RN [address] [place], [place] 16914691 Specialty Java Sybase Developer Hematology/Oncology 04/03/23 Ginna Em, RN [address] [place] [address] Supervisor Aircraft Maintenance Unspecified 04/15/23 Ileana Sosa RN Specialty Java Sybase Developer 05/19/23 Backwinder Relationship Specialty Start Date End Date Israel Pruitt DO [address] [place] [address] PCP - General Internal Medicine 11/10/19 06/14/23 Laron Arreola 3975 [facility] [address] [place] [address] Orthopedics 11/22/20 Israel Minor MD [address] [place], [place] 813586 Cardiology 02/27/22 Randa Rowell DO 1946 [facility] [address] [place], [place] 498155 Hematology/Oncology 09/08/22 05/04/23 Sanket Rob, [address] [place] [address] Neurology 09/08/22 Ruby Duff, JESSY [address] [place], [place] 08855691 Specialty Java Sybase Developer Hematology/Oncology 04/03/23 Ginna Em, RN [address] [place] [address] Supervisor Aircraft Maintenance Unspecified 04/15/23 Backwinder Relationship Specialty Start Date End Date Israel Pruitt DO [address] [place] [address] PCP - General Internal Medicine 11/10/19 06/14/23 Ronaldo Pleitez MD [address] [place], [place] 30307691 PCP - General Internal Medicine 06/15/23 Laron Arreola [address] [facility] [address] [address] Orthopedics 11/22/20 Israel Minor MD [address] [place], [place] 645466 Cardiology 02/27/22 Sanket Rbo DO [address] [place] [address] Neurology 09/08/22 Ruby Duff, JESSY [address] [facility] [place] [place] [address] Specialty Java Sybase Developer Hematology/Oncology 04/03/23 Ginna Em, JESSY [address] [place], [place] 7135331 Supervisor Aircraft Maintenance Unspecified 04/15/23 Ileana Sosa RN Specialty Java Sybase Developer 05/19/23 Backwinder Relationship Specialty Start Date End Date Ronaldo Pleitez MD [address] [place] [address] PCP - General Internal Medicine 06/15/23 Laron Arreola [address] [facility] [address] [address] Orthopedics 11/22/20 Israel Minor MD [address] [place] [address] Cardiology 02/27/22 Sanket Rob DO [address] [place] [address] Neurology 09/08/22 Ruby Duff, JESSY [address] [place], [place] 438681 Specialty Java Sybase Developer Hematology/Oncology 04/03/23 Ginna Em, RN [address] [place] [address] Supervisor Aircraft Maintenance Unspecified 04/15/23 Ileana Sosa RN Specialty Java Sybase Developer 05/19/23 Backwinder Relationship Specialty Start Date End Date Ronaldo Pleitez MD [address] [place], [place] 77301691 PCP - General Internal Medicine 06/15/23 Laron Arreola [address] [id number] Orthopedics 11/22/20 Israel Minor MD [address] [place] [place], [place] 221426 Cardiology 02/27/22 Sanket Rob DO [address] [place] [address] Neurology 09/08/22 Ruby Duff, JESSY [address] [place], [place] 343836[address] Specialty Java Sybase Developer Hematology/Oncology 04/03/23 Ginna Em, RN [address] [place] [address] Supervisor Aircraft Maintenance Unspecified 04/15/23 Ileana Sosa RN Specialty Java Sybase Developer 05/19/23 Backwinder Relationship Specialty Start Date End Date Ronaldo Pleitez MD [address] [place] [address] PCP - General Internal Medicine 06/15/23 Laron Arreola 3975 [facility] [address] [place] [address] Orthopedics 11/22/20 Israel Minor MD [address] [place] [address] Cardiology 02/27/22 Sanket Rob DO [address]8 [place] [address] Neurology 09/08/22 Ruby Duff, JESSY [address] [facility] [place] [address] Specialty Java Sybase Developer Hematology/Oncology 04/03/23 Ginna Em, RN [address] [place] [phone] Supervisor Aircraft Maintenance Unspecified 04/15/23 Ileana Sosa RN Specialty Java Sybase Developer 05/19/23 Backwinder Relationship Specialty Start Date End Date Ronaldo Pleitez MD [address] [place] [address] PCP - General Internal Medicine 06/15/23 Laron Arreola [address] 274013 Orthopedics 11/22/20 Israel Minor MD [address] [place] [address] Cardiology 02/27/22 Sanket Rob, [address] [place] [address] Neurology 09/08/22 Ruby Duff, RN [address] [place] [address] Specialty Java Sybase Developer Hematology/Oncology 04/03/23 Ginna Em, RN [address] [place] [address] Supervisor Aircraft Maintenance Unspecified 04/15/23 Ileana Sosa RN Specialty Java Sybase Developer 05/19/23 Backwinder Relationship Specialty Start Date End Date Ronaldo Pleitez MD [address] [place], [place] [id number] PCP - General Internal Medicine 06/15/23 Laron Arreola [address] [address] Orthopedics 11/22/20 Israel Minor MD [address] [place] [address] Cardiology 02/27/22 Sanket Rob DO [address] [place] [address] Neurology 09/08/22 Ruby Duff, JESSY [address] [place], [place] [id number] Specialty Java Sybase Developer Hematology/Oncology 04/03/23 Ginna Em, RN [address] [place] [address] Supervisor Aircraft Maintenance Unspecified 04/15/23 Doup, Ileana, RN Specialty Java Sybase Developer 05/19/23 Backwinder Relationship Specialty Start Date End Date Ronaldo Pleitez MD [address] [place], [place] 638521 PCP - General Internal Medicine 06/15/23 Laron Arreola [address] [facility] [address] [place] [address] Orthopedics 11/22/20 Israel Minor MD [address] [place], [place] 599646 Cardiology 02/27/22 Sanket Rob DO [address] [place] [address] Neurology 09/08/22 Ruby Duff, JESSY [address] [place] [address] Specialty Java Sybase Developer Hematology/Oncology 04/03/23 Ginna Em, RN [address] [place] [address] Supervisor Aircraft Maintenance Unspecified 04/15/23 Ileana Sosa RN Specialty Java Sybase Developer 05/19/23 Backwinder Relationship Specialty Start Date End Date Ronaldo Pleitez MD [address] [place] [address] PCP - General Internal Medicine 06/15/23 Laron Arreola [address] [facility] [address] [facility] [address] [place] [address] Orthopedics 11/22/20 Israel Minor MD [address] [place] [address] Cardiology 02/27/22 Sanket Rob DO [address] [place] [address] Neurology 09/08/22 Ruby Duff RN [address] [place], [place] 376621 Specialty Java Sybase Developer Hematology/Oncology 04/03/23 Ginna Em, RN [address] [place] [address] Supervisor Aircraft Maintenance Unspecified 04/15/23 Ileana Sosa RN Specialty Java Sybase Developer 05/19/23 Backwinder Relationship Specialty Start Date End Date Ronaldo Pleitez MD [address] [place], [place] [id number] PCP - General Internal Medicine 06/15/23 Laron Arreola [address] [facility] [address] [place], [place] 749633 Orthopedics 11/22/20 Israel Minor MD [address] [place] [address] Cardiology 02/27/22 Sanket Rob DO [address] [place] [address] Neurology 09/08/22 Ruby Duff, JESSY [address] [place], [place] 423271 Specialty Java Sybase Developer Hematology/Oncology 04/03/23 Ginna Em, JESSY [address] [place] [address] Supervisor Aircraft Maintenance Unspecified 04/15/23 Ileana Sosa RN Specialty Java Sybase Developer 05/19/23 Backwinder Relationship Specialty Start Date End Date Ronaldo Pleitez MD [address] [place] [address] PCP - General Internal Medicine 06/15/23 Laron Arreola [address] [facility] [address] [place] [address] Orthopedics 11/22/20 Israel Minor MD [address] [place], [place] [address] [address] Cardiology 02/27/22 Sanket Rob DO [address] [place] [address] Neurology 09/08/22 Ruby Duff, JESSY [address] [place], [place] 477691 Specialty Java Sybase Developer Hematology/Oncology 04/03/23 Ginna Em, RN [address] [place], [place] 7908931 Supervisor Aircraft Maintenance Unspecified 04/15/23 Ileana Sosa RN Specialty Java Sybase Developer 05/19/23 Backwinder Relationship Specialty Start Date End Date Ronaldo Pleitez MD [address] [place], [place] 152801 PCP - General Internal Medicine 06/15/23 Laron Arreola [address] [facility] [address] [place] [address] Orthopedics 11/22/20 Israel Minor MD [address] [place] [address] Cardiology 02/27/22 Sanket Rob DO [address] [place] [address] Neurology 09/08/22 Ruby Duff, JESSY [address] [place], [place] 749381 Specialty Java Sybase Developer Hematology/Oncology 04/03/23 Ginna Em RN [address] [place], [place] [id number] Supervisor Aircraft Maintenance Unspecified 04/15/23 Ileana Sosa RN Specialty Java Sybase Developer 05/19/23 Backwinder Relationship Specialty Start Date End Date Ronaldo Pleitez MD [address] [place], [place] 674181 PCP - General Internal Medicine 06/15/23 Laron Arreola [address] [address] Orthopedics 11/22/20 Isreal Minor MD [address] [place] [address] Cardiology 02/27/22 Sanket Rob DO [address] [place] [address] Neurology 09/08/22 Ruby Duff, JESSY [address] [facility] [place], [place] [id number] Specialty Java Sybase Developer Hematology/Oncology 04/03/23 Ginna Em RN [address] [place] [address] Supervisor Aircraft Maintenance Unspecified 04/15/23 Ileana Sosa, RN Specialty Java Sybase Developer 05/19/23 Backwinder Relationship Specialty Start Date End Date Ronaldo Pleitez MD [address] [place], [place] 672431 PCP - General Internal Medicine 06/15/23 Laron Arreola [address] [facility] [address] [address] [place], [place] 0[address]883 Orthopedics 11/22/20 Israel Minor MD [address] [place], [place] [address] [address] Cardiology 02/27/22 Sanket Rob DO [address] [place] [address] Neurology 09/08/22 Ruby Duff, JESSY [address] [place] [address] Specialty Java Sybase Developer Hematology/Oncology 04/03/23 Ginna Em RN [address] [place] [address] Supervisor Aircraft Maintenance Unspecified 04/15/23 Ileana Sosa, RN Specialty Java Sybase Developer 05/19/23 Backwinder Relationship Specialty Start Date End Date Ronaldo Pleitez MD [address] [place], [place] 249931 PCP - General Internal Medicine 06/15/23 Laron Arreola [address] [facility] [address] [place], [place] [address] Orthopedics 11/22/20 Israel Minor MD [address] [place], [place] 022616 Cardiology 02/27/22 Sanket Rob DO [address] [place] [address] Neurology 09/08/22 Ruby Duff RN [address] [place], [place] 413111 Specialty Java Sybase Developer Hematology/Oncology 04/03/23 Ginna Em RN [address] [place] [phone] Supervisor Aircraft Maintenance Unspecified 04/15/23 Ileana Sosa RN Specialty Java Sybase Developer 05/19/23 Backwinder Relationship Specialty Start Date End Date Ronaldo Pleitez MD [address] [place], [place] 334701 PCP - General Internal Medicine 06/15/23 Laron Arreola [address] [facility] [address] [place] [address] Orthopedics 11/22/20 Israel Minor MD [address] [place] [address] Cardiology 02/27/22 Sanket Rob DO [address] [place] [address] Neurology 09/08/22 Ruby Duff RN [address] [place] [address] Specialty Java Sybase Developer Hematology/Oncology 04/03/23 Ginna Em, JESSY [address] [place] [address] Supervisor Aircraft Maintenance Unspecified 04/15/23 Ileana Sosa RN Specialty Java Sybase Developer 05/19/23 Backwinder Relationship Specialty Start Date End Date Ronaldo Pleitez MD [address] [place], [place] 568521 PCP - General Internal Medicine 06/15/23 Laron Arreola [address] [place], [place] 956573 Orthopedics 11/22/20 Israel Minor MD [address] [place] [address] Cardiology 02/27/22 Sanket Rob DO [address] [place] [address] Neurology 09/08/22 Ruby Duff, JESSY [address] [place] 344781 Specialty Java Sybase Developer Hematology/Oncology 04/03/23 Ginna Em, RN [address] [place] [address] Supervisor Aircraft Maintenance Unspecified 04/15/23 Ileana Sosa RN Specialty Java Sybase Developer 05/19/23 Backwinder Relationship Specialty Start Date End Date Ronaldo Pleitez MD [address] [place] [address] PCP - General Internal Medicine 06/15/23 Laron Arreola [address] [facility] [place] 667843 Orthopedics 11/22/20 Israel Minor MD [address] [place], [place] 402206 Cardiology 02/27/22 Sanket Rob DO [address] [place] [address] Neurology 09/08/22 Ruby Duff RN [address] [place], [place] 66527691 Specialty Java Sybase Developer Hematology/Oncology 04/03/23 Ginna Em RN [address] [place], [place] 1047031 Supervisor Aircraft Maintenance Unspecified 04/15/23 Ileana Sosa RN Specialty Java Sybase Developer 05/19/23 Backwinder Relationship Specialty Start Date End Date Ronaldo Pleitez MD [address] [place], [place] 668481 PCP - General Internal Medicine 06/15/23 Laron Arreola [address] [facility] [address] 6[address] Orthopedics 11/22/20 Israel Minor MD [address], [place] 577336 Cardiology 02/27/22 Sanket Rob DO [address] [place] [address] Neurology 09/08/22 Ruby Duff RN [address] [place], [place] 912051 Specialty Java Sybase Developer Hematology/Oncology 04/03/23 Ginna Em, RN [address] [place] [address] Supervisor Aircraft Maintenance Unspecified 04/15/23 Ileana Sosa RN Specialty Java Sybase Developer 05/19/23 Backwinder Relationship Specialty Start Date End Date Ronaldo Pleitez MD [address] [place], [place] 629001 PCP - General Internal Medicine 06/15/23 Laron Arreola [address] [address] Orthopedics 11/22/20 Israel Minor MD [facility] [place] [address] Cardiology 02/27/22 Sanket Rob DO [address] [place] [address] Neurology 09/08/22 Ruby Duff RN [address] [place], [place] 87350691 Specialty Java Sybase Developer Hematology/Oncology 04/03/23 Ginna Em, JESSY [address] [place] [address] Supervisor Aircraft Maintenance Unspecified 04/15/23 Ileana Soas RN Specialty Java Sybase Developer 05/19/23 Backwinder Relationship Specialty Start Date End Date Ronaldo Pleitez MD [address] [place], [place] 792981 PCP - General Internal Medicine 06/15/23 Laron Arreola [address] [facility] [address] [place], [place] 5[address]23 Orthopedics 11/22/20 Israel Minor MD [address] [place], [place] 615896 Cardiology 02/27/22 Sanket Rob, [address] [place] [address] Neurology 09/08/22 Ruby Duff, JESSY [address] [facility] [place], [place] 385041 Specialty Java Sybase Developer Hematology/Oncology 04/03/23 Ginna Em RN [address] [place] [address] [id number] Supervisor Aircraft Maintenance Unspecified 04/15/23 Ileana Sosa RN Specialty Java Sybase Developer 05/19/23 Backwinder Relationship Specialty Start Date End Date Ronaldo Pleitez MD [address] [place], [place] 097401 PCP - General Internal Medicine 06/15/23 Laron Arreola [address] [facility] [address] [address] Orthopedics 11/22/20 Israel Minor MD [address] [place] [address] Cardiology 02/27/22 Sanket Rob DO [address] [place] [address] Neurology 09/08/22 Ruby Duff RN [address] [facility] [place] 396021 Specialty Java Sybase Developer Hematology/Oncology 04/03/23 Ginna Em, JESSY [address] [place] [phone] Supervisor Aircraft Maintenance Unspecified 04/15/23 Ileana Sosa RN Specialty Java Sybase Developer 05/19/23 Backwinder Relationship Specialty Start Date End Date Ronaldo Pleitez MD [address] [place], [place] 80626691 PCP - General Internal Medicine 06/15/23 Laron Arreola [address] [facility] [address] [place], [place] 210893 Orthopedics 11/22/20 Israel Minor MD [address] [place], [place] 528676 Cardiology 02/27/22 Sanket Rob DO [address] [place] [address] Neurology 09/08/22 Ruby Duff RN [address] [place], [place] 09362691 Specialty Java Sybase Developer Hematology/Oncology 04/03/23 Ileana Sosa RN Specialty Java Sybase Developer 05/19/23 Arabella Moreno, PRODUCT DEVELOPMENT MANAGER.TELEPHONE ORDER SUPERVISOR [address] [place], [place] 953451 World Designer Internal Medicine 10/17/24 Backwinder Relationship Specialty Start Date End Date Ronaldo Pleitez MD [address] [place] [address] PCP - General Internal Medicine 06/15/23 Laron Arreola [address] [address] Orthopedics 11/22/20 Israel Minor MD [address] [place] [address] Cardiology 02/27/22 Sanket Rob DO [address] [place] [address] Neurology 09/08/22 Ruby Duff RN [address] [place] [address] Specialty Java Sybase Developer Hematology/Oncology 04/03/23 Ileana Sosa RN Specialty Java Sybase Developer 05/19/23 Arabella Moreno, PRODUCT DEVELOPMENT MANAGER.TELEPHONE ORDER SUPERVISOR [address] [place] [address] World Designer Internal Medicine 10/17/24 Backwinder Relationship Specialty Start Date End Date Ronaldo Pleitez MD [address] [place] [address] PCP - General Internal Medicine 06/15/23 Laron Arreola [address] [address] Orthopedics 11/22/20 Israel Minor MD [address] [place] [address] Cardiology 02/27/22 Sanket Rob DO [address] [place] [address] Neurology 09/08/22 Ruby Duff, JESSY [address] [place], [place] 08097691 Specialty Java Sybase Developer Hematology/Oncology 04/03/23 Ileana Sosa RN Specialty Java Sybase Developer 05/19/23 Arabella Moreno, PRODUCT DEVELOPMENT MANAGER.[facility] [address] [place], [place] 84106691 World Designer Internal Medicine 10/17/24 Backwinder Relationship Specialty Start Date End Date Ronaldo Pleitez MD [address] [place], [place] 09265691 PCP - General Internal Medicine 06/15/23 Laron Arreola [address] 0750[address] Orthopedics 11/22/20 Israel Minor MD [address] [place] [address] Cardiology 02/27/22 Sanket Rob DO [address] [place] [address] Neurology 09/08/22 Ruby Duff RN [address] [place], [place] 60486691 Specialty Java Sybase Developer Hematology/Oncology 04/03/23 Doup, Ileana, RN Specialty Java Sybase Developer 05/19/23 Arabella Moreno, PRODUCT DEVELOPMENT MANAGER.TELEPHONE ORDER SUPERVISOR [address] [place], [place] 162881 World Designer Internal Medicine 10/17/24 Backwinder Relationship Specialty Start Date End Date Ronaldo Pleitez MD [address] [place], [place] 045731 PCP - General Internal Medicine 06/15/23 Laron Arreola [address] [facility] [address] [place], [place] 197453 Orthopedics 11/22/20 Israel Minor MD [address] [place] [address] Cardiology 02/27/22 Sanket Rob DO [address] [facility] [address] [place] [address] Neurology 09/08/22 Ruby Duff, JESSY [address] [place] [address] Specialty Java Sybase Developer Hematology/Oncology 04/03/23 Ileana Sosa RN Specialty Java Sybase Developer 05/19/23 Arabella Moreno, PRODUCT DEVELOPMENT MANAGER.TELEPHONE ORDER SUPERVISOR [address] [place] [address] World Designer Internal Medicine 10/17/24 Backwinder Relationship Specialty Start Date End Date Ronaldo Pleitez MD [address] [place] [address] PCP - General Internal Medicine 06/15/23 Laron Arreola [address] [facility] [address] [facility] [address] [place] [address] Orthopedics 11/22/20 Israel Minor MD [address] [place] [address] Cardiology 02/27/22 Sanket Rob DO [address] [facility] 100 [place] [address] Neurology 09/08/22 Ruby Duff, JESSY [address] [place] [address] Specialty Java Sybase Developer Hematology/Oncology 04/03/23 Ileana Sosa RN Specialty Java Sybase Developer 05/19/23 Arabella Moreno, PRODUCT DEVELOPMENT MANAGER.TELEPHONE ORDER SUPERVISOR [address] [place] [address] World Designer Internal Medicine 10/17/24 Backwinder Relationship Specialty Start Date End Date Ronaldo Pleitez MD [address] [place] [address] PCP - General Internal Medicine 06/15/23 Laron Arreola [address] [facility] [address] [place] [address] Orthopedics 11/22/20 Israel Minor MD [address] [place] [address] Cardiology 02/27/22 Sanket Rob DO [address] [facility] [address] [place] [address] Neurology 09/08/22 Ruby Duff RN [address] [place] [address] Specialty Java Sybase Developer Hematology/Oncology 04/03/23 Ileana Sosa RN Specialty Java Sybase Developer 05/19/23 Arabella Moreno, PRODUCT DEVELOPMENT MANAGER.TELEPHONE ORDER SUPERVISOR [address] [place] [address] World Designer Internal Medicine 10/17/24 Backwinder Relationship Specialty Start Date End Date Ronaldo Pleitez MD [address] [place], [place] 155791 PCP - General Internal Medicine 06/15/23 Laron Arreola [address] [facility] 102 [place], [place] 009893 Orthopedics 11/22/20 Israel Minor MD [address] [place] [address] Cardiology 02/27/22 Sanket Rob DO [address] [address] Neurology 09/08/22 Ruby Duff RN [address] [place], [place] 631671 Specialty Java Sybase Developer Hematology/Oncology 04/03/23 Ileana Sosa RN Specialty Java Sybase Developer 05/19/23 Arabella Moreno, PRODUCT DEVELOPMENT MANAGER.TELEPHONE ORDER SUPERVISOR [address] [place] [address] World Designer Internal Medicine 10/17/24 Backwinder Relationship Specialty Start Date End Date Ronaldo Pleitez MD [address] [place] [address] PCP - General Internal Medicine 06/15/23 Laron Arreola [address] [facility] [address] [place] [address] Orthopedics 11/22/20 Israel Minor MD [facility] [place] [address] Cardiology 02/27/22 Sanket Rob DO [address] [facility] [address] [place] [address] Neurology 09/08/22 Ruby Duff, JESSY [address] [place], [place] 788771 Specialty Java Sybase Developer Hematology/Oncology 04/03/23 Ileana Sosa RN Specialty Java Sybase Developer 05/19/23 Arabella Moreno, PRODUCT DEVELOPMENT MANAGER.TELEPHONE ORDER SUPERVISOR [address] [place] [address] World Designer Internal Medicine 10/17/24 Backwinder Relationship Specialty Start Date End Date Ronaldo Pleitez MD [address] [place] [address] PCP - General Internal Medicine 06/15/23 Laron Arreola [address] [facility] [address] [facility] [address] [place] [address] Orthopedics 11/22/20 Israel Minor MD [address] [place], [place] 980566 Cardiology 02/27/22 Sanket Rob DO [address] [facility] [address] [place] [address] Neurology 09/08/22 Ruby Duff RN [address] [place], [place] 65804691 Specialty Java Sybase Developer Hematology/Oncology 04/03/23 Ileana Sosa RN Specialty Java Sybase Developer 05/19/23 Arabella Moreno, PRODUCT DEVELOPMENT MANAGER.[facility] [address] [place] [address] World Designer Internal Medicine 10/17/24 Backwinder Relationship Specialty Start Date End Date Ronaldo Pleitez MD [address] [place], [place] 671151 PCP - General Internal Medicine 06/15/23 Laron Arreola [address] [facility] [address] [place], [place] [address]693 Orthopedics 11/22/20 Israel Minor MD [address] [place] [address] Cardiology 02/27/22 Sanket Rob, [address] [facility] [address] [place] [address] Neurology 09/08/22 Ruby Duff RN [address] [place], [place] 958891 Specialty Java Sybase Developer Hematology/Oncology 04/03/23 Ileana Sosa RN Specialty Java Sybase Developer 05/19/23 Arabella Moreno, PRODUCT DEVELOPMENT MANAGER.TELEPHONE ORDER SUPERVISOR [address] [place] [address] World Designer Internal Medicine 10/17/24 Backwinder Relationship Specialty Start Date End Date Ronaldo Pleitez MD [address] [place], [place] 800931 PCP - General Internal Medicine 06/15/23 Laron Arreola [address] [facility] [address] [place], [place] 950283 Orthopedics 11/22/20 Israel Minor MD [address] [place] [address] Cardiology 02/27/22 Sanket Rob DO [address] [facility] [address] [place] [address] Neurology 09/08/22 Ruby Duff RN [address] [place] [address] Specialty Java Sybase Developer Hematology/Oncology 04/03/23 Ileana Sosa, RN Specialty Java Sybase Developer 05/19/23 Arabella Moreno, PRODUCT DEVELOPMENT MANAGER.TELEPHONE ORDER SUPERVISOR [address] [place] [address] World Designer Internal Medicine 10/17/24 Backwinder Relationship Specialty Start Date End Date Ronaldo Pleitez MD [address] [place] [address] PCP - General Internal Medicine 06/15/23 Laron Arreola [address] [facility] [address] [place] [address] Orthopedics 11/22/20 Israel Minor MD [address] [place] [address] Cardiology 02/27/22 Sanket Rob DO [address]8 [facility] 100 [place] [address] Neurology 09/08/22 Ruby Duff, JESSY [address] [place] [address] Specialty Java Sybase Developer Hematology/Oncology 04/03/23 Ileana Sosa, JESSY Specialty Java Sybase Developer 05/19/23 Arabella Moreno, PRODUCT DEVELOPMENT MANAGER.TELEPHONE ORDER SUPERVISOR [address] [place] [address] World Designer Internal Medicine 10/17/24 Backwinder Relationship Specialty Start Date End Date Ronaldo Pleitez MD [address] [place] [address] PCP - General Internal Medicine 06/15/23 Laron Arreola [address] [facility] [address] [place] [address] Orthopedics 11/22/20 Israel Minor MD [address] [place] [address] Cardiology 02/27/22 Sanket Rob DO [address] [facility] [address] [place] [address] Neurology 09/08/22 Ruby Duff RN [address] [place], [place] 486101 Specialty Java Sybase Developer Hematology/Oncology 04/03/23 Ileana Sosa RN Specialty Java Sybase Developer 05/19/23 Arabella Moreno, PRODUCT DEVELOPMENT MANAGER.[facility] [address] [place] [address] World Designer Internal Medicine 10/17/24 Backwinder Relationship Specialty Start Date End Date Ronaldo Pleitez MD [address] [place], [place] 291591 PCP - General Internal Medicine 06/15/23 Laron Arreola [address] [facility] [address] [place], [place] 357963 Orthopedics 11/22/20 Israel Minor MD [address] [place] [address] Cardiology 02/27/22 Sanket Rob DO [address] [facility] [address] [place] [address] Neurology 09/08/22 Ruby Duff RN [address] [place] [address] Specialty Java Sybase Developer Hematology/Oncology 04/03/23 Ileana Sosa, RN Specialty Java Sybase Developer 05/19/23 Arabella Moreno, PRODUCT DEVELOPMENT MANAGER.TELEPHONE ORDER SUPERVISOR [address] [place] [address] World Designer Internal Medicine 10/17/24 Backwinder Relationship Specialty Start Date End Date Ronaldo Pleitez MD [address] [place] [address] PCP - General Internal Medicine 06/15/23 Laron Arreola 3975 [facility] [address] [place] [address] Orthopedics 11/22/20 Israel Minor MD [address] [place] [address] Cardiology 02/27/22 Sanket Rob DO [address] [facility] [address] [place] [address] Neurology 09/08/22 Ruby Duff, JESSY [address] [place] [address] Specialty Java Sybase Developer Hematology/Oncology 04/03/23 Ileana Sosa RN Specialty Java Sybase Developer 05/19/23 Arabella Moreno, PRODUCT DEVELOPMENT MANAGER.TELEPHONE ORDER SUPERVISOR [address] [place] [address] World Designer Internal Medicine 10/17/24 Backwinder Relationship Specialty Start Date End Date Ronaldo Pleitez MD [address] [place] [address] PCP - General Internal Medicine 06/15/23 Laron Arreola 3975 [facility] [address] [place] [address] Orthopedics 11/22/20 Israel Minor MD [address] [place] [address] Cardiology 02/27/22 Sanket Rob DO 4048 [facility] [address] [place] [address] Neurology 09/08/22 Ruby Duff RN [address] [place] [address] Specialty Java Sybase Developer Hematology/Oncology 04/03/23 Ileana Sosa RN Specialty Java Sybase Developer 05/19/23 Arabella oMreno, PRODUCT DEVELOPMENT MANAGER.TELEPHONE ORDER SUPERVISOR [address] [place], [place] 011871 World Designer Internal Medicine 10/17/24 Backwinder Relationship Specialty Start Date End Date Ronaldo Pleitez MD [address] [place] [address] PCP - General Internal Medicine 06/15/23 Laron Arreola [address]75 [facility] [address] [place] [address] Orthopedics 11/22/20 Israel Minor MD [address] [place] [address] Cardiology 02/27/22 Sanket Rob DO [address] [facility] [facility] [address] [place] [address] Neurology 09/08/22 Ruby Duff RN [address] [place] [place], [place] 046521 Specialty Java Sybase Developer Hematology/Oncology 04/03/23 Ileana Sosa RN Specialty Java Sybase Developer 05/19/23 Arabella Moreno, PRODUCT DEVELOPMENT MANAGER.[facility] [address] [place], [place] 274271 World Designer Internal Medicine 10/17/24 Backwinder Relationship Specialty Start Date End Date Ronaldo Pleitez MD [address] [place], [place] 818181 PCP - General Internal Medicine 06/15/23 Laron Arreola 3975 [facility] [address] [place], [place] 650613 Orthopedics 11/22/20 Israel Minor MD [address] [place] [address] Cardiology 02/27/22 Sanket Rob DO [address] [facility] [facility] [address] [place] [address] Neurology 09/08/22 Ruby Duff RN [address] [place], [place] 420441 Specialty Java Sybase Developer Hematology/Oncology 04/03/23 Ileana Sosa RN Specialty Java Sybase Developer 05/19/23 Arabella Moreno, PRODUCT DEVELOPMENT MANAGER.TELEPHONE ORDER SUPERVISOR [address] [facility] [place] [address] World Designer Internal Medicine 10/17/24 Backwinder Relationship Specialty Start Date End Date Ronaldo Pleitez MD [address]40 [facility], [place] 671451 PCP - General Internal Medicine 06/15/23 Laron Arreola [address] [facility] [address] [place], [place] [address]1803 Orthopedics 11/22/20 Israel Minor MD [address] [place], [place] [id number] Cardiology 02/27/22 Sanket Rob DO [address] [facility] [address] [place] [address] Neurology 09/08/22 Ruby Duff, JESSY [address] [place] [address] Specialty Java Sybase Developer Hematology/Oncology 04/03/23 Ileana Sosa RN Specialty Java Sybase Developer 05/19/23 Arabella Moreno, PRODUCT DEVELOPMENT MANAGER.TELEPHONE ORDER SUPERVISOR [address] [facility] [place] [address] World Designer Internal Medicine 10/17/24 Backwinder Relationship Specialty Start Date End Date Ronaldo Pleitez MD [address] [place] [address] PCP - General Internal Medicine 06/15/23 Laron Arreola [address] [facility] [address] [place] [address] Orthopedics 11/22/20 Israel Minor MD [address] [place] [address] Cardiology 02/27/22 Sanket Rob DO [address] [facility] [address] [place] [address] Neurology 09/08/22 Ruby Duff RN [address] [place] [address] Specialty Java Sybase Developer Hematology/Oncology 04/03/23 Ileana Sosa RN Specialty Java Sybase Developer 05/19/23 Arabella Moreno, PRODUCT DEVELOPMENT MANAGER.TELEPHONE ORDER SUPERVISOR [address] [place] [address] World Designer Internal Medicine 10/17/24 Backwinder Relationship Specialty Start Date End Date Ronaldo Pleitez MD [address] [place] [address] PCP - General Internal Medicine 06/15/23 Laron Arreola [address] [facility] [address] [place] [address] Orthopedics 11/22/20 Israel Minor MD [address] [place] [address] Cardiology 02/27/22 Sanket Rob DO [address] [facility] [address] [place] [address] Neurology 09/08/22 Ruby Duff RN [address] [place], [place] [id number] Specialty Java Sybase Developer Hematology/Oncology 04/03/23 Ileana Sosa RN Specialty Java Sybase Developer 05/19/23 Arabella Moreno, PRODUCT DEVELOPMENT MANAGER.[facility] [address] [place], [place] [address] World Designer Internal Medicine 10/17/24 Team Status: Active Member Role/Relationship Status Dates Dr. Ronaldo Pleitez MD Primary Care Provider Active Team Status: Inactive Member Role/Relationship Status Dates Dr. Ronaldo Pleitez MD Primary Care Provider Active Start: June 18, 2025 End: June 19, 2025 Dr. Bryanna Tijerina MD Emergency Provider Active S tart: June 18, 2025 End: June 19, 2025 Backwinder Relationship Specialty Start Date End Date Ronaldo Pleitez MD [address] [place], [place] [address] PCP - General Internal Medicine 06/15/23 Laron Arreola [address] [facility] [address] [place], [place] [address] Orthopedics 11/22/20 Israel Minor MD [address] [place] [address] Cardiology 02/27/22 Sanket Rob DO [address] [facility] [address] [place] [address] Neurology 09/08/22 Ruby Duff RN [address] [place] [address] Specialty Java Sybase Developer Hematology/Oncology 04/03/23 Ileana Sosa, RN Specialty Java Sybase Developer 05/19/23 Arabella Moreno, PRODUCT DEVELOPMENT MANAGER.TELEPHONE ORDER SUPERVISOR [address] [place] [address] World Designer Internal Medicine 10/17/24 Team Status: Inactive Member [...] Attending Provider Active Start: June 23, 2025 Backwinder Relationship Specialty Start Date End Date Ronaldo Pleitez MD [address] [place], [place] [address] PCP - General Internal Medicine 06/15/23 Laron Arreola [address] [facility] [address] [address] [place] [address] Orthopedics 11/22/20 Israel Minor MD [address] [place] [address] Cardiology 02/27/22 Sanket Rob DO [address] [facility] [address] [place] [address] Neurology 09/08/22 Ruby Duff, JESSY [address] [place] [address] Specialty Java Sybase Developer Hematology/Oncology 04/03/23 Ileana Sosa, JESSY Specialty Java Sybase Developer 05/19/23 Arabella Moreno, PRODUCT DEVELOPMENT MANAGER.TELEPHONE ORDER SUPERVISOR [address] [place] [address] World Designer Internal Medicine 10/17/24 Team Status: Inactive Member [...] Provider Active Sta rt: June 26, 2025 Backwinder Relationship Specialty Start Date End Date Ronaldo Pleitez MD [address] [place] [address] PCP - General Internal Medicine 06/15/23 Laron Arreola [address] [facility] [address] [place] [address] Orthopedics 11/22/20 Israel Minor MD [address] [place], [place] [address] Cardiology 02/27/22 Sanket Rob DO [address] [facility] [address] [place] [address] Neurology 09/08/22 Ruby Duff RN [address] [place], [place] [address] Specialty Java Sybase Developer Hematology/Oncology 04/03/23 Ileana Sosa RN Specialty Java Sybase Developer 05/19/23 Arabella Moreno, PRODUCT DEVELOPMENT MANAGER.[facility] [address] [place], [place] [address] World Designer Internal Medicine 10/17/24 Backwinder Relationship Specialty Start Date End Date Ronaldo Pleitez MD [address] [place], [place] [address] PCP - General Internal Medicine 06/15/23 Laron Arreola [address] [facility] [address] [place] [address] Orthopedics 11/22/20 Israel Minor MD [address] [place] [address] Cardiology 02/27/22 Sanket Rob DO [address] [facility] [address] [place] [address] Neurology 09/08/22 Ruby Duff RN [address] [place] [address] Specialty Java Sybase Developer Hematology/Oncology 04/03/23 Ileana Sosa RN Specialty Java Sybase Developer 05/19/23 Arabella Moreno, PRODUCT DEVELOPMENT MANAGER.TELEPHONE ORDER SUPERVISOR [address] [place], [place] [address] World Designer Internal Medicine 10/17/24 Backwinder Relationship Specialty Start Date End Date Ronaldo Pleitez MD [address] [place], [place] [address] PCP - General Internal Medicine 06/15/23 Laron Arreola [address] [facility] [address] [place], [place] [address] Orthopedics 11/22/20 Israel Minor MD [address] [place], [place] [address] Cardiology 02/27/22 Sanket Rob DO [address] [facility] [address] [place] [address] Neurology 09/08/22 Ileana Sosa RN Specialty Java Sybase Developer 05/19/23 Arabella Moreno, PRODUCT DEVELOPMENT MANAGER.TELEPHONE ORDER SUPERVISOR [address] [place], [place] [address] World Designer Internal Medicine 10/17/24 Iram Johnson, PRODUCT DEVELOPMENT MANAGER.TELEPHONE ORDER SUPERVISOR [address] [place], [place] [address] Nurse Practitioner Cardiology 07/13/25 Baljinder Galloway DO [address] [place], [place] [address] Hematology/Oncology 07/13/25 Backwinder Relationship Specialty Start Date End Date Ronaldo Pleitez MD [address] [place], [place] [address] PCP - General Internal Medicine 06/15/23 Laron Arreola [address] [facility] [address] [place], [place] [id number] Orthopedics 11/22/20 Israel Minor MD [address] [place], [place] [address] Cardiology 02/27/22 Sanket Rob DO [address] [facility] [address] [place] [address] Neurology 09/08/22 Ileana Sosa, RN Specialty Java Sybase Developer 05/19/23 Arabella Moreno, PRODUCT DEVELOPMENT MANAGER.TELEPHONE ORDER SUPERVISOR [address] [place], [place] [id number] World Designer Internal Medicine 10/17/24 Iram Johnson, PRODUCT DEVELOPMENT MANAGER.TELEPHONE ORDER SUPERVISOR [address] [facility] [address] [place], [place] [id number] Nurse Practitioner Cardiology 07/13/25 Baljinder Galloway DO [address] [place] [address] Hematology/Oncology 07/13/25 PRN Active and Recently Administ [...] BE BASED ON THE PRIMARY CLINICAL RECORDS. [facility] [facility]. provides no warranty or guarantee of the accuracy or completeness of information in this document.
[2025-07-28 23:26] LABS: Troponin T High Sens 2 HR 167 ng/L (<=22)
--- NOTE | 2025-07-28 23:49 | ECHOD_ITS ---
Reason For Study : CHF Procedure This was a 2D Doppler, Color Flow transthoracic echocardiogram. The study was technically difficult. Exam performed in department. Left Ventricle Normal LV size. Moderate concentric left ventricular hypertrophy. The left ventricular ejection fraction is 35 %. Stage 3 diastolic dysfunction. There is moderate to severe global hypokinesis of the left ventricle. Right Ventricle Normal RV size. ICD or pacer leads identified within the right ventricle. Normal systolic function. Atria The left atrium is mildly enlarged. ICD or pacer leads identified within the right atrium. The right atrium is mildly enlarged. Mitral Valve There is moderate mitral annular calcification. Mild-Moderate (1-2+) eccentric mitral valve insufficiency. Tricuspid Valve Normal tricuspid valve. Mild (1+) tricuspid valve insufficiency. Pulmonary artery systolic pressure is 33 mmHg. Aortic Valve Trisinus/trileaflet aortic valve. Mild focal aortic valve thickening. Trivial aortic valve insufficiency. Pulmonic Valve Normal pulmonic valve. Great Vessels Mildly dilated aortic root. The pulmonary artery is normal size. Inferior vena cava collapse with respiration. Pericardium/Pleural No pericardial effusion. MMode/2D Measurements & Calculations LVIDd: 4.3 cm IVSd: 1.6 cm LVOT diam: 2.1 cm LVIDs: 3.4 cm LVPWd: 1.6 cm LVOT area: 3.5 cm2 RVDd: 3.5 cm FS: 21.0 % Ao root diam: 3.9 cm asc Aorta Diam: 3.7 cm LAV(MOD- bp): 67.5 ml LAV(MOD- bp) Indexed: 34.3 ml/m2 LAV(MOD- sp2): 71.9 ml LAV(MOD- sp4): 62.2 ml SV(MOD- sp4): 20.0 ml LVAd ap4: 22.5 cm2 LVAd ap2: 27.9 cm2 LVLd ap4: 7.9 cm LVLd ap2: 8.0 cm SI(MOD- sp4): 10.2 ml/m2 EDV(MOD-sp4): 55.9 ml EDV(MOD-sp2): 81.4 ml EDV(sp4-el): 54.5 ml EDV(sp2-el): 82.9 ml LVAs ap4: 17.5 cm2 LVAs ap2: 20.7 cm2 LVLs ap4: 7.3 cm LVLs ap2: 7.3 cm ESV(MOD-sp4): 36.0 ml ESV(MOD-sp2): 51.6 ml ESV(sp4-el): 35.7 ml ESV(sp2-el): 49.7 ml EF(MOD-sp4): 35.7 % EF(MOD-sp2): 36.6 % EF(sp4-el): 34.5 % SV(MOD-sp2): 29.8 ml SV(sp4-el): 18.8 ml LA A4 area: 21.8 cm2 SI(MOD-sp2): 15.2 ml/m2 TAPSE: 1.2 cm RA A4 area: 25.3 cm2 Time Measurements MV dec time: 0.17 sec Doppler Measurements & Calculations MV E max oneal: 105.2 cm/sec Lat Peak E' Oneal: 8.5 cm/sec Med Peak E' Oneal: 4.8 cm/sec MV A max oneal: 42.2 cm/sec E/E' lat: 12.4 E/E' med: 22.0 MV E/A: 2.5 Ao V2 max: 152.0 cm/sec LV V1 max: 76.7 cm/sec SV(LVOT): 47.9 ml Ao max P.2 mmHg LV V1 max P.4 mmHg Ao V2 mean: 107.2 cm/sec LV V1 mean P.1 mmHg Ao mean P.0 mmHg LV V1 mean: 49.8 cm/sec Ao V2 VTI: 29.0 cm LV V1 VTI: 13.7 cm AV (velocity ratio): 0.47 DELONTE(I,D): 1.7 cm2 DELONTE(V,D): 1.8 cm2 PA V2 max: 52.0 cm/sec TR max oneal: 265.8 cm/sec TR max P.9 mmHg ECHO/Echo Complete Interpretation Summary Normal LV size. The left ventricular ejection fraction is 35 %. There is moderate to severe global hypokinesis of the left ventricle. Stage 3 diastolic dysfunction. Pulmonary artery systolic pressure is 33 mmHg. Moderate concentric left ventricular hypertrophy. Ordering Physician: Cami Wang Referring Physician: Purnima Murillo Performed By: Candy Resendez, BRIAN, RVT
[2025-07-29] VITALS (7 sets, daily range): BP systolic 107–117; BP diastolic 56–76; PULSE 64–90; RESP 14–20; TEMP 35.8–36.6; O2SAT 92–100; BMI 31.0
--- NOTE | 2025-07-29 00:03 | EDS_ITS ---
HPI History of Present Illness Chief Complaint: Edema Narrative Narrative: Patient is a 89-year-old male presenting to the emergency department for edema and shortness of breath. 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 Patient arrives with younger sister at bedside. Patient is a poor historian however sister helps provide history. He was just admitted at [facility] for 12 days, discharged Thursday which was 3 days ago. Discharged to a facility. He initially did not go into the hospital with NC but was discharged home on 2 L NC. Reports since he was discharged he has had worsening edema in all extremities, especially his hands. He reports SOB with activity. Denies chest pain. Denies fever, chills, abdominal pain nausea, vomiting, diarrhea, dysuria or hematuria. States has been compliant with his anticoagulation. [facility] Medical History Chronic atrial fibrillation Anemia Restless legs syndrome Diverticulosis of intestine, part unspecified, without perforation or abscess without bleeding Vitamin D deficiency Nonrheumatic tricuspid (valve) insufficiency Acute on chronic combined systolic (congestive) and diastolic (congestive) heart failure Chronic anticoagulation Cellulitis Hypoxemia CMML (chronic myelomonocytic leukemia) Acquired immunocompromised state Lumbar stenosis Nocturnal hypoxemia Osteoarthritis Myasthenia gravis Cerebral vascular accident (~08/2022) Complete heart block Coronary artery disease (~09/2022) Hypothyroidism HLD (hyperlipidemia) Benign essential HTN Home Medications ?Medication ?Instructions ?Recorded ?Last Taken ?Type cholecalciferol (vitamin D3) 25 25 mcg PO DAILY vitami n 04/09/23 07/28/25 History mcg (1,000 unit) tablet cyanocobalamin (vitamin B-12) 1,000 mcg PO DAILY 04/0905/14/23 History 1,000 mcg capsule multivitamin 1 tab PO DAILY supplement 07/28/25 History rivaroxaban 20 mg tablet (Xarelto) 20 mg PO QPM afib 0 04/09/23 07/27/25 History atorvastatin 20 mg tablet 20 mg PO QHS colesterol 05/0107/27/25 History folic acid 1 mg tablet 1 mg PO BREAKFAST 30 days #3 0 tabs 05/18/23 Unknown Rx polyethylene glycol 3350 17 17 g PO DAILY PRN constipa tion 05/20/23 Unknown Rx gram/dose oral powder (Miralax) #238 grams nitroglycerin 0.4 mg sublingual 0.4 mg sublingual Q5M chest pain 06/23/25 Unknown History tablet furosemide 40 mg tablet 40 mg PO BID heart failure 3 0 days 06/26/25 07/28/25 Rx #0 tabs potassium chloride 20 mEq 40 meq (2 x 20 mEq) PO BIDCM dr 06/26/25 07/28/25 Rx tablet,extended release(part/cryst) ordered 30 days #1 20 tabs aspirin 81 mg tablet,delayed [address] ordered 07/28/25 07/28/25 History release (Adult Aspirin Regimen) empagliflozin 10 mg tablet 10 mg PO QAM sugar 07/28/25 07/28/25 History (Jardiance) levothyroxine 112 mcg capsule 112 mcg PO QDAY thyroid 07/28/25 07/28/25 History losartan 25 mg tablet 12.5 mg PO QDAY BP 07/28/25 07/28/25 History spironolactone 25 mg tablet 12.5 mg PO QDAY heart fail ure 07/28/25 07/27/25 History Allergy/AdvReac Type Severity Reaction Status Date / Time simvastatin Allergy Intermediate Other Verified 07/28/25 18:36 Family History Mother Heart disease Father Heart disease Surgical History History of ankle surgery (~12/2020) History of arthroplasty of right shoulder (~2008) Pacemaker (09/17/22) Hx 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 No acute distress. Chronically appearing. HEENT: Head is normocephalic and atraumatic, sinuses nontender, pupils equal round and reactive. Nares are patent. Oropharynx and throat exams normal. Neck: Supple without lymphadenopathy nontender Cardiovascular: Regular rate and irregular rhythm, no murmurs. No rubs or gallops. Normal S1 and S2. Radial pulses intact bilaterally. DP and PT pulses intact bilaterally. Respiratory: Crackles in bilateral lung manning. No wheezes. On 2 L NC. Abdominal: Soft and nontender. Normal bowel sounds. No guarding or rebound. Nonsurgical abdomen Extremities: Edematous extremities. Weeping upper extremities. No significant asymmetry to the swelling. No erythema or warmth. No tenderness. No bruising. Normal range of motion. Normal sensation. Skin: No rash or redness. The rest of the physical exam is unremarkable Const Vital Signs: 07/28/25 18:37 07/28/25 19:36 07/28/25 20:00 Temperature 98.4 F Temperature Source Oral Pulse Rate 82 82 91 Respiratory Rate 18 Respiratory Effort Blood Pressure 115/60 109/65 109/65 Blood Pressure Mean 78 79 79 Pulse Ox 100 98 98 Oxygen Delivery Method Nasal Cannula Nasal Cannula Nasal Cannula Oxygen Flow Rate (L/min) 2 2 2 07/28/25 20:29 07/28/25 20:53 07/28/25 21:00 Temperature Temperature Source Pulse Rate 90 Respiratory Rate Respiratory Effort Normal Non-Labored Blood Pressure 117/78 Blood Pressure Mean 91 Pulse Ox 100 Oxygen Delivery Method Nasal Cannula Oxygen Flow Rate (L/min) 2 07/28/25 21:13 07/28/25 22:00 Temperature Temperature Source Pulse Rate Respiratory Rate Respiratory Effort Blood Pressure 107/95 H Blood Pressure Mean 99 Pulse Ox 94 Oxygen Delivery Method Room Air Oxygen Flow Rate (L/min) MDM MDM MDM Narrative Medical decision making narrative: Patient is a 89-year-old male presenting to the emergency department for edema and shortness of breath. Patient was seen and examined. Vitals are stable. Patient resting in bed comfortably in no acute distress. He is on 2 L nasal cannula which is his new baseline. Differential includes but is not limited to: CHF exacerbation, pneumonia, ACS, less likely PE or DVT On exam the extremity is there is pitting edema throughout. It is fairly symmetric. Pulses are intact. There is no significant erythema, warmth or tenderness to palpation. There is no evidence of cellulitis. Given the symmetric swelling throughout I do not think this is secondary to a DVT. Less likely PE given physical exam findings and patient is on xarelto and compliant. Given the crackles on lung exam and clinical picture as well as history I think this is likely a CHF exacerbation. CBC with no leukocytosis and chronic anemia of 9.6. CMP with baseline kidney dysfunction. Mildly elevated [place] 39[place] [address] and initial troponin of 176, no baseline to compare to. Reflex downtrending at 167. EKG shows atrial fibrillation with a right bundle branch block. No ST elevation or depression. Difficult to determine if this is a new elevation in troponin or baseline for the patient given his CKD and CHF. Likely type 2 NSTEMI. CXR with cardiomegaly, blunting of the costophrenic angles and vascular congestion consistent with a CHF exacerbation. Given baseline kidney function for the patient, 40 mg IV Lasix ordered. Attempted to ambulate the pa tient with pulse ox however poor pulse ox reading. He did become short of breath with ambulation. Given the physical exam findings and elevated BNP and troponin, recommended admission for his CHF exacerbation. Patient agreeable to plan. Admitted to Dr. Wang for further management. Clinical impression: CHF exacerbation Type II NSTEMI History & Record Review Discussion w/independent historian: Patient and Family Additional record(s) reviewed:: Prior labs Lab Data Attestation: I reviewed the patient's lab results. Labs: Laboratory Results - last 24 hr 07/28/25 07/28/25 20:20 22:30 WBC 6.9 RBC 2.75 L Hgb 9.6 L Hct 29.7 L MCV 108.0 H MCH 34.9 H MCHC 32.3 RDW Std Deviation 98.4 H RDW Coeff of Luis Alberto 25.1 H Plt Count 207 MPV 11.3 Immature Gran % (Auto) 1.000 H Neut % (Auto) 66.8 Lymph % (Auto) 13.8 L [place] % (Auto) 15.6 H Eos % (Auto) 1.6 Baso % (Auto) 1.2 H Absolute Neuts (auto) 4.6 Absolute Lymphs (auto) 0.95 Nucleated RBC % 0.7 Differential Comment SCANNED Platelet Estimate ADEQUATE Polychromasia 1+ Hypochromasia 1+ Basophilic Stippling RARE Anisocytosis 2+ Target Cells RARE Ovalocytes 1+ Sodium 138 Potassium 5.1 Chloride 97 L Carbon Dioxide 30.3 Anion Gap 10 BUN 46 H Creatinine 1.31 H Est GFR (MDRD) Non-Af 52 L BUN/Creatinine Ratio 35.0 H Glucose 125 H Calcium 8.9 Total Bilirubin 1.00 AST 39 H ALT 33 Alkaline Phosphatase 104 Troponin T High Sens 176 H* Troponin T Hi Sens 2 Hr 167 H* [place] [address] H Total Protein 6.8 Albumin 4.0 Globulin 2.8 Albumin/Globulin Ratio 1.4 Radiography Chest X-Ray - ED: 2 View, Read by ED Physician, Cardiomegaly and CHF Diagnostic Testing: Clinical Impression(s) from Imaging Studies Chest X-Ray 07/28/25 20:42 IMPRESSION: Mild cardiomegaly and mild pulmonary vascular congestion. Reading [facility] Discharge Plan Disposition Disposition: Acute Care Hospital [facility] Discharge Date/Time: 07/28/25 23:30
[2025-07-29 00:17] LABS: Magnesium 2.4 mg/dL (1.5-2.2)
[2025-07-29 01:55] LABS: Troponin T High Sens 4 HR 173 ng/L (<=22)
[2025-07-29 06:40] LABS: Hematocrit 28.4 % (40-54); Hemoglobin 9.3 g/dL (13.0-16.5); Immature Granulocytes Count 0.040 X10^3/uL (0.0-0.0); Mean Corp Hgb Conc 32.7 g/dL (32-36); Mean Corpuscular Volume 106.8 fL (80-94); Mean Platelet Vol. 11.0 fl (6.2-12.0); NRBC Flagged by Analyzer 0.7 % (0-5); POSITIVE MORPHOLOGY YES; Platelet Count 165 K/mm3 (150-450); RBC Distribution Width CV 25.0 % (11.6-14.6); RBC Distribution Width SD 97.5 fl (35.1-43.9); Red Blood Count 2.66 M/mm3 (4.6-6.2); White Blood Count 5.8 K/mm3 (4.4-11.0)
[2025-07-29 07:17] LABS: Differential Indicated SCAN CRITERIA MET
[2025-07-29 07:30] LABS: AST(SGOT) 35 U/L (<=37); Alanine Aminotransfer ALT/SGPT 27 U/L (<=46); Albumin, Serum 3.6 g/dL (3.4-4.8); Alkaline Phosphatase 92 U/L (40-129); Anion Gap 10 (5-15); BUN 44 mg/dL (4-19); BUN/Creat Ratio 35.9 RATIO (10-20); Calcium,Total 8.7 mg/dL (7.6-11.0); Carbon Dioxide 30.1 mmol/L (21.0-32.0); Chloride 100 mmol/L (98-108); Cholesterol 99 mg/dL (<=200); Estimated Creatinine Clearance 42.15 ml/min (50-250); Globulin 2.5 g/dL (2.2-4.2); Glucose 85 mg/dL (70-99); Low Density Lipoprotein Calc. 29 mg/dL; Potassium 4.6 mmol/L (3.3-5.1); Triglycerides 31 mg/dL; Very Low Density Lipoprotein 6 mg/dL (5-40); cholesterol:hdl ratio screen 1.55
[2025-07-29 07:54] LABS: Acanthocytes 1+; Anisocytosis 3+; Polychromasia 1+; Target Cells 1+
[2025-07-29] MEDS: Aspirin E.C. 81 MG Tablet PO (08:06)
[2025-07-29] MEDS: Potassium Chloride Oral Tablet 20 MEQ 40 MEQ PO ×2 (08:07→17:46)
[2025-07-29] MEDS: 0.9% Saline Lock 10 ML Syringe IV ×2 (08:19→17:46)
--- NOTE | 2025-07-29 11:28 | PN.HOSP_ITS ---
Reason for Visit Chief Complaint: Dyspnea, orthopnea despite lasix, recent d/c [facility] on supplemental oxygen with HF Exac. Objective Data Objective Data Vital Signs: Vital Signs Temp Pulse Resp BP Pulse Ox O2 Del Method O2 Flow Rate 98 F 83 16 107/56 L 97 Nasal Cannula 2 07/29/25 08:21 07/29/25 08:21 07/29/25 08:21 07/29/25 08:21 07/29/25 08:21 07/29/25 08:21 07/29/25 08:21 Oxygen Flow Rate (L/min) 2 Oxygen Delivery Method Nasal Cannula Weight: 192 lb 7.417 oz Body Mass Index (BMI) 31.0 Intake & Output: Intake and Output for Last 24 Hours 07/27/25 07/28/25 07/29/25 23:59 23:59 23:59 Intake Total 100 / 100 Output Total 650 / 650 Balance -550 / -550 Lab / Micro Data 07/29/25 05:34 07/29/25 05:34 Labs: Laboratory Results - last 24 hr 07/28/25 20:20: WBC 6.9, RBC 2.75 L, Hgb 9.6 L, Hct 29.7 L, MCV 108.0 H, MCH 34.9 H, MCHC 32.3, RDW Std Deviation 98.4 H, RDW Coeff of Luis Alberto 25.1 H, Plt Count 207, MPV 11.3, Immature Gran % (Auto) 1.000 H, Neut % (Auto) 66.8, Lymph % (Auto) 13.8 L, [place] % (Auto) 15.6 H, Eos % (Auto) 1.6, Baso % (Auto) 1.2 H, Absolute Neuts (auto) 4.6, Absolute Lymphs (auto) 0.95, Nucleated RBC % 0.7, Differential Comment SCANNED, Platelet Estimate ADEQUATE, Polychromasia 1+, Hypochromasia 1+, Basophilic Stippling RARE, Anisocytosis 2+, Target Cells RARE, Ovalocytes 1+, Sodium 138, Potassium 5.1, Chloride 97 L, Carbon Dioxide 30.3, Anion Gap 10, BUN 46 H, Creatinine 1.31 H, Est GFR (MDRD) Non-Af 52 L, B UN/Creatinine Ratio 35.0 H, Glucose 125 H, Calcium 8.9, Total Bilirubin 1.00, A ST 39 H, ALT 33, Alkaline Phosphatase 104, Troponin T High Sens 176 H*, [place] [address] H, Total Protein 6.8, Albumin 4.0, Globulin 2.8, Albumin/Globulin Ratio 1.4 07/28/25 22:30: Magnesium 2.4 H, Troponin T Hi Sens 2 Hr 167 H* 07/29/25 01:01: Troponin T Hi Sens 4Hr 173 H* 07/29/25 05:34: WBC 5.8, RBC 2.66 L, Hgb 9.3 L, Hct 28.4 L, MCV 106.8 H, MCH 35.0 H, MCHC 32.7, RDW Std Deviation 97.5 H, RDW Coeff of Luis Alberto 25.0 H, Plt Count 165, MPV 11.0, Immature Gran % (Auto) 0.700, Neut % (Auto) 65.5, Lymph % (Auto) 12.5 L, [place] % (Auto) 17.6 H, Eos % (Auto) 2.1, Baso % (Auto) 1.6 H, Absolute Neuts (auto) 3.8, Absolute Lymphs (auto) 0.72 L, Nucleated RBC % 0.7, Polychromasia 1+, Anisocytosis 3+, Target Cells 1+, Acanthocytes (Spur) 1+, Sodium 140, Potassium 4.6, Chloride 100, Carbon Dioxide 30.1, Anion Gap 10, BUN 44 H, Creatinine 1.23 H, Estim Creat Clear Calc 42.15 L, Est GFR (MDRD) Non-Af 56 L, BUN/Creatinine Ratio 35.9 H, Glucose 85, Calcium 8.7, Total Bilirubin 1.01, AST 35, ALT 27, Alkaline Phosphatase 92, Total Protein 6.1, Albumin 3.6, Globulin 2.5, Albumin/Globulin Ratio 1.5, Triglycerides 31, Cholesterol 99, LDL Cholesterol, Calc 29, VLDL Cholesterol 6, HDL Cholesterol 64, Cholesterol/HDL Ratio 1.55, TSH 7.500 H Radiography Diagnostic Testing: Radiology Impression Chest X-Ray 07/28/25 20:42 IMPRESSION: Mild cardiomegaly and mild pulmonary vascular congestion. Reading Location: [facility] Physical Exam Narrative The history taken from the patient and his family at the bedside. His son is visiting from [place]. His primary caregiver is her daughter who lives in the town. Patient is scheduled to see [facility] on Thursday as an outpatient Blood pressure on lower side. He has 25 pack years of his smoking. Smoked less than a pack per day. Patient also smoked pipes. Never had PFT. Physical exam General: Alert, Oriented x3, Cooperative HEENT: Bilateral hard of hearing atraumatic, PERRLA, EOMI, Normocephalic. Oral: No Gingival or Mucosal Lesions/ Ulcerations Neck: Supple, No JVD, Negative Carotid Bruits Chest wall/Lungs: Air entry diminished in bilateral lung bases. No crepitation/rhonchi Cardiovascular: Irregular rhythm, status post CABG and pacemaker. Systolic murmur Abdomen: Bowel Sounds Present, Soft, Non Tender, Non-Distended : No dysuria. No renal angle tenderness. No suprapubic tenderness. Extremities: Edema present in all 4 limbs, Capillary Refill Less than 3 Seconds Skin: Lymphedema and venous hypertension Musculoskeletal: No Tenderness to Palpation of Joints or Extremities Neurological: Cranial nerves II-XII grossly intact, DTR 2+/4. No acute focal neurological deficit. Psych/Mental Status: Flat affect. Assessment & Plan Assessment/Plan (1) Acute exacerbation of chronic heart failure: PLAN: Plan The patient is an 89 y/o male with multiple comorbidities admitted with generalized edema of all 4 extremities, shortness of breath, noted hypoxia on 2 L of oxygen. He was recently discharged after 14 days admission in [facility]. As per the son patient had cardiac cath and had angioplasty but did not require a stent #1. 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 Patient being admitted from [facility] through ED. Serial troponins 176, 167 and 173, no significant delta change. proBNP high. Patient on IV furosemide 40 mg every 12 hourly. 2D echo shows EF 35% with moderate to severe hypokinesis. Stage III diastolic function. PASP 33 mmHg, moderate concentric LVH. Mild TR. 1-2+ eccentric MR. On low-dose metoprolol and losartan #2. CAD: Status post CABG: Continue home Xarelto. Patient on a statin. Started on low-dose metoprolol succinate. BP on lower side therefore not good candidate for CITLALLI/ARB. 07/29: As per son patient had cardiac cath and angioplasty in [facility]. Does not have official medical report reviewed. Obtain medical records #3. myasthenia gravis: Currently no acute exacerbation. PT and OT #4. CML and history of DVT: Patient had chemotherapy in the past through the port in the left arm. He said he also had DVT in the leg and left arm close to the port. Continue Xarelto #5. History of CVA: On statin and Xarelto #6. History of complete heart block: Status post pacemaker placement, encourage continued outpatient follow-up and evaluation/interrogation as previously arranged. #7. Chronic macrocytic anemia: Admission hemoglobin 9.6, MCV 108, baseline hemoglobin appears primarily 8-9, stable, continue to trend. #8. Chronic Kidney Disease Stage IIIA: Admission BUN/Cr 46/1.31, GFR 52, baseline renal function more recently noted primarily 1.2-1.4, 07/29: Creatinine 1.23. On baseline. #9. PAF: Will continue patient home Xarelto regimen, per most recent list does not appear to be on rate or rhythm agent but clarified to be certain. #10. Hypertension: Noted history, per current list only on oral Lasix/metolazone, will maintain on metolazone and transition to IV Lasix given presentation as noted, as needed IV hydralazine additionally. #11. Hyperlipidemia: Continue home statin regimen. Lipid profile in normal limit #12. Hypothyroidism: TSH elevated 7.5. Home levothyroxine dose increased #13. Former tobacco use: Encourage continued tobacco cessation. #14. Chronic bilateral lower extremity lymphedema: Complicates presentation, continue evaluation and treatment as noted, standing citlalli wraps with elevation. #15. DVT prophylaxis: continue patient home Xarelto regimen. #16. CODE status: Patient JUDY is his son who is present and living will is currently in place. Discussed CODE status at length including difference between FULL code, DNR-CCA and DNR-CC status. Following discussions about the differences in these status, requested DNR CCA, clarified and also no intubation with examples reviewed. Laboratory Results - last 24 hr 07/28/25 20:20: WBC 6.9, RBC 2.75 L, Hgb 9.6 L, Hct 29.7 L, MCV 108.0 H, MCH 34.9 H, MCHC 32.3, RDW Std Deviation 98.4 H, RDW Coeff of Luis Alberto 25.1 H, Plt Count 207, MPV 11.3, Immature Gran % (Auto) 1.000 H, Neut % (Auto) 66.8, Lymph % (Auto) 13.8 L, [place] % (Auto) 15.6 H, Eos % (Auto) 1.6, Baso % (Auto) 1.2 H, Absolute Neuts (auto) 4.6, Absolute Lymphs (auto) 0.95, Nucleated RBC % 0.7, Differential Comment SCANNED, Platelet Estimate ADEQUATE, Polychromasia 1+, Hypochromasia 1+, Basophilic Stippling RARE, Anisocytosis 2+, Target Cells RARE, Ovalocytes 1+, Sodium 138, Potassium 5.1, Chloride 97 L, Carbon Dioxide 30.3, Anion Gap 10, BUN 46 H, Creatinine 1.31 H, Est GFR (MDRD) Non-Af 52 L, B UN/Creatinine Ratio 35.0 H, Glucose 125 H, Calcium 8.9, Total Bilirubin 1.00, A ST 39 H, ALT 33, Alkaline Phosphatase 104, Troponin T High Sens 176 H*, [place] [address] H, Total Protein 6.8, Albumin 4.0, Globulin 2.8, Albumin/Globulin Ratio 1.4 07/28/25 22:30: Magnesium 2.4 H, Troponin T Hi Sens 2 Hr 167 H* 07/29/25 01:01: Troponin T Hi Sens 4Hr 173 H* 07/29/25 05:34: WBC 5.8, RBC 2.66 L, Hgb 9.3 L, Hct 28.4 L, MCV 106.8 H, MCH 35.0 H, MCHC 32.7, RDW Std Deviation 97.5 H, RDW Coeff of Luis Alberto 25.0 H, Plt Count 165, MPV 11.0, Immature Gran % (Auto) 0.700, Neut % (Auto) 65.5, Lymph % (Auto) 12.5 L, [place] % (Auto) 17.6 H, Eos % (Auto) 2.1, Baso % (Auto) 1.6 H, Absolute Neuts (auto) 3.8, Absolute Lymphs (auto) 0.72 L, Nucleated RBC % 0.7, Polychromasia 1+, Anisocytosis 3+, Target Cells 1+, Acanthocytes (Spur) 1+, Sodium 140, Potassium 4.6, Chloride 100, Carbon Dioxide 30.1, Anion Gap 10, BUN 44 H, Creatinine 1.23 H, Estim Creat Clear Calc 42.15 L, Est GFR (MDRD) Non-Af 56 L, BUN/Creatinine Ratio 35.9 H, Glucose 85, Calcium 8.7, Total Bilirubin 1.01, AST 35, ALT 27, Alkaline Phosphatase 92, Total Protein 6.1, Albumin 3.6, Globulin 2.5, Albumin/Globulin Ratio 1.5, Triglycerides 31, Cholesterol 99, LDL Cholesterol, Calc 29, VLDL Cholesterol 6, HDL Cholesterol 64, Cholesterol/HDL Ratio 1.55, TSH 7.500 H Echo interpretation summary 07/29/2025 Normal LV size. The left ventricular ejection fraction is 35 %. There is moderate to severe global hypokinesis of the left ventricle. Stage 3 diastolic dysfunction. Pulmonary artery systolic pressure is 33 mmHg. Moderate concentric left ventricular hypertrophy. Charges/Coding Visit Charges Inpatient E&M: 51986 Subs Hosp L2
--- NOTE | 2025-07-29 11:40 | CASEMGMT ---
Addendum entered by Kandace James 07/29/25 12:03: Social Work Pt's son Austin spoke w/SW in the hallway. He wanted to let SW know that he and his three siblings all agree pt cannot return to the independent living at [place] at this time, and perhaps may not be able to return at all. Pt was in the assisted living in [place], and in February moved to the [place]. He had been doing well, but now they are concerned that he may not be able to return to [place]. Son Austin states that [place] is also thinking the same, though pt at this point is still wanting to return to [place] eventually. SW explained we will continue to plan for pt to return to [place] skilled from here, and encouraged he and family to stay in touch w/[facility] about what will be the most appropriate level of care for pt after his skilled time. NASIMA Wright Original Note: Social Work SW met w/pt in room, pt's son Austin also present. Pt confirms is normally from [facility], but has been in the rehab unit for the last few days. Pt's son Austin states pt was in [facility] the last two weeks, and went to the rehab side of [place] on Thursday. SW inquired w/pt if his plan is to return to rehab at [place]. Pt states yes, and is very focused on getting stronger and being able to return home. SW explained a new precert will be needed, SW will start the process today and follow up w/[place] on Thursday. Pt and son state understanding. SNF list not needed at this time. SW sent updates via [employer], PT/OT are still pending however. SW did send a message in [employer] to [facility] also to send over LW/POA if they have it. Family also may bring in the documents. As per son Austin, daughter Liza is HCPOA. There are four children algother. [facility] will follow up Thursday. NASIMA Wright
[2025-07-29] MEDS: Metoprolol(XL)Succ 25 MG Tablet 12.5 MG PO (15:42)
[2025-07-30 03:26] VITALS: BP 95/59; PULSE 84; RESP 16; TEMP 36.4; O2SAT 96
[2025-07-30 03:56] VITALS: BMI 30.6
--- NOTE | 2025-07-30 08:46 | NURSING ---
MEDICAL RECORDS REQUESTED FROM [facility] FROM RECENT ADMISSION
[2025-07-30 09:06] VITALS: BP 101/67; PULSE 84; RESP 18; TEMP 36.7; O2SAT 97
[2025-07-30 09:15] VITALS: BP 101/67; PULSE 84
[2025-07-30] MEDS: Potassium Chloride Oral Tablet 20 MEQ 40 MEQ PO (09:15)
[2025-07-30] MEDS: Aspirin E.C. 81 MG Tablet PO (09:15)
[2025-07-30] MEDS: Metoprolol(XL)Succ 25 MG Tablet 12.5 MG PO (09:15)
--- NOTE | 2025-07-30 11:44 | PN.HOSP_ITS ---
Subjective Subjective Feels a bit better, swelling is improved though his left hand is still little bit edematous Objective Data Objective Data Vital Signs: Vital Signs Temp Pulse Resp BP Pulse Ox O2 Del Method O2 Flow Rate 98.1 F 84 18 101/67 97 Nasal Cannula 2 07/30/25 09:06 07/30/25 09:15 07/30/25 09:06 07/30/25 09:15 07/30/25 09:06 07/30/25 09:06 07/30/25 11:00 Oxygen Flow Rate (L/min) 2 Oxygen Delivery Method Nasal Cannula Weight: 189 lb 9.561 oz Body Mass Index (BMI) 30.6 Intake & Output: Intake and Output for Last 24 Hours 07/29/25 07/30/25 07/31/25 03:59 03:59 03:59 Intake Total 1545 / 1545 Output Total 1250 / 1250 700 / 700 Balance 295 / 295 -700 / -700 Lab / Micro Data 07/29/25 05:34 07/29/25 05:34 Radiography Diagnostic Testing: Radiology Impression Echocardiogram 07/28/25 23:49 Interpretation Summary Normal LV size. The left ventricular ejection fraction is 35 %. There is moderate to severe global hypokinesis of the left ventricle. Stage 3 diastolic dysfunction. Pulmonary artery systolic pressure is 33 mmHg. Moderate concentric left ventricular hypertrophy. Ordering Physician: Cami Wang Referring Physician: Purnima Murillo Performed By: Candy Resendez, BRIAN, RVT Physical Exam Narrative General: Alert, Oriented x3, Cooperative, No apparent distress HEENT: Atraumatic, PERRLA, EOMI, Normocephalic Oral: Moist Mucosa Neck: Supple, No JVD Lungs: Diminished, Normal air movement, No rhonchi, No wheeze, No rales Cardiovascular: Regular rate, Regular Rhythm, Normal S1, Normal S2, No murmurs Abdomen: Soft, Non Tender, Non-Distended, No Hepato-splenomegaly Extremities: Left hand with slight pitting edema, bilateral lower extremity trace edema, Capillary Refill Less than 3 Seconds Skin: Skin tears in his left lower extremity dressing intact Musculoskeletal: No Tenderness to Palpation of Joints or Extremities Neurological: No focal neurological deficits, moves all extremities Psych/Mental Status: Normal Affect, Appropriate Assessment & Plan Assessment/Plan (1) Acute exacerbation of chronic heart failure: PLAN: Plan #1. 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 Patient being admitted from [facility] through ED. Serial troponins 176, 167 and 173, no significant delta change. proBNP high. Patient on IV furosemide 40 mg every 12 hourly. 2D echo shows EF 35% with moderate to severe hypokinesis. Stage III diastolic function. PASP 33 mmHg, moderate concentric LVH. Mild TR. 1-2+ eccentric MR. On low-dose metoprolol and losartan 07/30/2025: Ambulatory pulse ox today, continue with diuresis, he is down about 3 pounds since admission #2. CAD: Status post CABG: Continue home Xarelto. Patient on a statin. Started on low-dose metoprolol succinate. BP on lower side therefore not good candidate for CITLALLI/ARB. 07/29: As per son patient had cardiac cath and angioplasty in [facility]. Does not have official medical report reviewed. Obtain medical records #3. myasthenia gravis: Currently no acute exacerbation. PT and OT #4. CML and history of DVT: Patient had chemotherapy in the past through the port in the left arm. He said he also had DVT in the leg and left arm close to the port. Continue Xarelto #5. History of CVA: On statin and Xarelto #6. History of complete heart block: Status post pacemaker placement, encourage continued outpatient follow-up and evaluation/interrogation as previously arranged. #7. Chronic macrocytic anemia: Admission hemoglobin 9.6, MCV 108, baseline hemoglobin appears primarily 8-9, stable, continue to trend. #8. Chronic Kidney Disease Stage IIIA: Admission BUN/Cr 46/1.31, GFR 52, baseline renal function more recently noted primarily 1.2-1.4, 07/29: Creatinine 1.23. On baseline. #9. PAF: Will continue patient home Xarelto regimen, per most recent list does not appear to be on rate or rhythm agent but clarified to be certain. #10. Hypertension: Noted history, per current list only on oral Lasix/metolazone, will maintain on metolazone and transition to IV Lasix given presentation as noted, as needed IV hydralazine additionally. #11. Hyperlipidemia: Continue home statin regimen. Lipid profile in normal limit #12. Hypothyroidism: TSH elevated 7.5. Home levothyroxine dose increased #13. Former tobacco use: Encourage continued tobacco cessation. #14. Chronic bilateral lower extremity lymphedema: Complicates presentation, continue evaluation and treatment as noted, standing citlalli wraps with elevation. DVT: Xarelto Charges/Coding Visit Charges Inpatient E&M: 72945 Subs Hosp L2
[2025-07-30 15:00] VITALS: BP 107/22; PULSE 68; RESP 16; TEMP 36.7; O2SAT 94
[2025-07-30 21:30] VITALS: BP 110/64; PULSE 86; RESP 16; TEMP 37.1; O2SAT 97
[2025-07-31 03:25] VITALS: BMI 31.5
[2025-07-31 03:30] VITALS: BP 116/78; PULSE 87; RESP 16; TEMP 37.1; O2SAT 100
[2025-07-31 04:00] VITALS: O2SAT 100
[2025-07-31 05:44] LABS: Hematocrit 28.5 % (40-54); Hemoglobin 9.2 g/dL (13.0-16.5); Immature Granulocytes Count 0.070 X10^3/uL (0.0-0.0); Mean Corp Hgb Conc 32.3 g/dL (32-36); Mean Corpuscular Volume 108.0 fL (80-94); Mean Platelet Vol. 11.3 fl (6.2-12.0); NRBC Flagged by Analyzer 0.9 % (0-5); POSITIVE MORPHOLOGY YES; Platelet Count 187 K/mm3 (150-450); RBC Distribution Width CV 25.2 % (11.6-14.6); RBC Distribution Width SD 97.6 fl (35.1-43.9); Red Blood Count 2.64 M/mm3 (4.6-6.2); White Blood Count 8.2 K/mm3 (4.4-11.0)
[2025-07-31 05:45] LABS: Differential Indicated SCAN CRITERIA MET
[2025-07-31 06:11] LABS: Anion Gap 11 (5-15); BUN 45 mg/dL (4-19); BUN/Creat Ratio 35.6 RATIO (10-20); Calcium,Total 8.6 mg/dL (7.6-11.0); Carbon Dioxide 30.3 mmol/L (21.0-32.0); Chloride 96 mmol/L (98-108); Estimated Creatinine Clearance 41.77 ml/min (50-250); Glucose 102 mg/dL (70-99); Potassium 4.6 mmol/L (3.3-5.1)
[2025-07-31 06:16] LABS: Acanthocytes RARE; Anisocytosis 2+; Basophilic Stippling RARE; Differential Comment SCANNED; Hypochromasia 1+; Macrocytosis 2+; Target Cells 1+; Tear Drop Cell 1+
[2025-07-31] MEDS: Potassium Chloride Oral Tablet 20 MEQ 40 MEQ PO (08:11)
[2025-07-31] MEDS: Aspirin E.C. 81 MG Tablet PO (08:11)
--- NOTE | 2025-07-31 08:22 | CASEMGMT ---
Discharge Planning Updates sent to [facility]. Almita Mccartney DC Planning Asst.
--- NOTE | 2025-07-31 08:45 | CASEMGMT ---
Discharge Planning SW requested copies of advanced directives from [facility]. [facility] reports they do not have them. SW's updated. Almita Mccartney DC Planning Asst.
--- NOTE | 2025-07-31 09:36 | CASEMGMT ---
Social Work SW called the daughter Liza and requested she provide the hospital the POA paperwork. She reported she would try to bring them in today. KAITLYNN Desir
[2025-07-31 10:16] VITALS: BP 104/66; PULSE 72; RESP 18; TEMP 36.8; O2SAT 91
--- NOTE | 2025-07-31 10:17 | CASEMGMT ---
Discharge Planning [facility] asked to submit for precert. Almita Mccartney DC Planning Asst.
[2025-07-31 10:22] VITALS: PULSE 72
[2025-07-31] MEDS: Metoprolol(XL)Succ 25 MG Tablet 12.5 MG PO (10:22)
[2025-07-31] MEDS: 0.9% Saline Lock 10 ML Syringe IV (10:23)
--- NOTE | 2025-07-31 11:19 | PCM.PN.HOSP ---
Subjective Subjective Doing well, no issues overnight. Upper extremity edema seems to be improving Objective Data Objective Data Vital Signs: Vital Signs Temp Pulse Resp BP Pulse Ox O2 Del Method O2 Flow Rate 98.2 F 72 18 104/66 91 Room Air 2 07/31/25 10:16 07/31/25 10:22 07/31/25 10:16 07/31/25 10:16 07/31/25 10:16 07/31/25 10:16 07/31/25 07:46 Oxygen Flow Rate (L/min) 2 Oxygen Delivery Method Room Air Weight: 195 lb 5.273 oz Body Mass Index (BMI) 31.5 Intake & Output: Intake and Output for Last 24 Hours 07/30/25 07/31/25 08/01/25 03:59 03:59 03:59 Intake Total 1545 / 1545 350 / 350 Output Total 1250 / 1250 2400 / 2400 300 / 300 Balance 295 / 295 -2400 / -2400 50 / 50 Lab / Micro Data 07/31/25 04:51 07/31/25 04:51 Labs: Laboratory Results - last 24 hr 07/31/25 04:51: WBC 8.2, RBC 2.64 L, Hgb 9.2 L, Hct 28.5 L, MCV 108.0 H, MCH 34.8 H, MCHC 32.3, RDW Std Deviation 97.6 H, RDW Coeff of Luis Alberto 25.2 H, Plt Count 187, MPV 11.3, Immature Gran % (Auto) 0.900, Neut % (Auto) 68.1, Lymph % (Auto) 11.6 L, [place] % (Auto) 17.1 H, Eos % (Auto) 1.1, Baso % (Auto) 1.2 H, Absolute Neuts (auto) 5.6, Absolute Lymphs (auto) 0.95, Nucleated RBC % 0.9, Differential Comment SCANNED, Platelet Estimate ADEQUATE, Hypochromasia 1+, Basophilic Stippling RARE, Anisocytosis 2+, Macrocytosis 2+, Target Cells 1+, Tear Drop Cells 1+, Ovalocytes 2+, Acanthocytes (Spur) RARE, Sodium 138, Potassium 4.6, Chloride 96 L, Carbon Dioxide 30.3, Anion Gap 11, BUN 45 H, Creatinine 1.25 H, Estim Creat Clear Calc 41.77 L, Est GFR (MDRD) Non-Af 55 L, BUN/Creatinine Ratio 35.6 H, Glucose 102 H, Calcium 8.6 Physical Exam Narrative General: Alert, Oriented x3, Cooperative, No apparent distress HEENT: Atraumatic, PERRLA, EOMI, Normocephalic Oral: Moist Mucosa Neck: Supple, No JVD Lungs: Diminished, Normal air movement, No rhonchi, No wheeze, No rales Cardiovascular: Regular rate, Regular Rhythm, Normal S1, Normal S2, No murmurs Abdomen: Soft, Non Tender, Non-Distended, No Hepato-splenomegaly Extremities: Left hand with slight pitting edema, bilateral lower extremity trace edema, Capillary Refill Less than 3 Seconds Skin: Skin tears in his left lower extremity dressing intact Musculoskeletal: No Tenderness to Palpation of Joints or Extremities Neurological: No focal neurological deficits, moves all extremities Psych/Mental Status: Normal Affect, Appropriate Assessment & Plan Assessment/Plan (1) Acute exacerbation of chronic heart failure: PLAN: Plan #1. 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 Patient being admitted from [facility] through ED. Serial troponins 176, 167 and 173, no significant delta change. proBNP high. Patient on IV furosemide 40 mg every 12 hourly. 2D echo shows EF 35% with moderate to severe hypokinesis. Stage III diastolic function. PASP 33 mmHg, moderate concentric LVH. Mild TR. 1-2+ eccentric MR. On low-dose metoprolol and losartan 07/30/2025: Ambulatory pulse ox today, continue with diuresis, he is down about 3 pounds since admission 07/31/2025: Obtain unable to wait pulse ox today as it does not appear 1 was done yesterday will continue diuresis pending pre-CERT #2. CAD: Status post CABG: Continue home Xarelto. Patient on a statin. Started on low-dose metoprolol succinate. BP on lower side therefore not good candidate for CITLALLI/ARB. 07/29: As per son patient had cardiac cath and angioplasty in [facility]. Does not have official medical report reviewed. Obtain medical records #3. myasthenia gravis: Currently no acute exacerbation. PT and OT #4. CML and history of DVT: Patient had chemotherapy in the past through the port in the left arm. He said he also had DVT in the leg and left arm close to the port. Continue Xarelto #5. History of CVA: On statin and Xarelto #6. History of complete heart block: Status post pacemaker placement, encourage continued outpatient follow-up and evaluation/interrogation as previously arranged. #7. Chronic macrocytic anemia: Admission hemoglobin 9.6, MCV 108, baseline hemoglobin appears primarily 8-9, stable, continue to trend. #8. Chronic Kidney Disease Stage IIIA: Admission BUN/Cr 46/1.31, GFR 52, baseline renal function more recently noted primarily 1.2-1.4, 07/29: Creatinine 1.23. On baseline. #9. PAF: Will continue patient home Xarelto regimen, per most recent list does not appear to be on rate or rhythm agent but clarified to be certain. #10. Hypertension: Noted history, per current list only on oral Lasix/metolazone, will maintain on metolazone and transition to IV Lasix given presentation as noted, as needed IV hydralazine additionally. #11. Hyperlipidemia: Continue home statin regimen. Lipid profile in normal limit #12. Hypothyroidism: TSH elevated 7.5. Home levothyroxine dose increased #13. Former tobacco use: Encourage continued tobacco cessation. #14. Chronic bilateral lower extremity lymphedema: Complicates presentation, continue evaluation and treatment as noted, standing citlalli wraps with elevation. DVT: Xarelto Charges/Coding Visit Charges Inpatient E&M: 77203 Subs Hosp L2
[2025-07-31 12:12] LABS: Hematocrit 28.6 % (40-54); Hemoglobin 9.4 g/dL (13.0-16.5); Immature Granulocytes Count 0.040 X10^3/uL (0.0-0.0); Mean Corp Hgb Conc 32.9 g/dL (32-36); Mean Corpuscular Volume 108.7 fL (80-94); Mean Platelet Vol. 11.0 fl (6.2-12.0); NRBC Flagged by Analyzer 1.5 % (0-5); POSITIVE MORPHOLOGY YES; Platelet Count 182 K/mm3 (150-450); RBC Distribution Width CV 25.0 % (11.6-14.6); RBC Distribution Width SD 99.2 fl (35.1-43.9); Red Blood Count 2.63 M/mm3 (4.6-6.2); White Blood Count 7.2 K/mm3 (4.4-11.0)
[2025-07-31 12:15] LABS: Differential Indicated SCAN CRITERIA MET
--- NOTE | 2025-07-31 12:46 | TREXTCAR_ITS ---
Diet Diet Order/Speech Therapy: INPATIENT Hospital Diet / Speech Therapy Order(s) 07/28/25 23:49 Diet: Cardiac - Heart Healthy Food consistency:: Regular Liquid Consistency:: Regular/Thin Fluid restriction:: 1500 mL Routine Orders/Code Status Routine Lab Work: CBC and BMP Code Status: DNRCC-A DC O2, CPAP, BIPAP needs Home O2 Discharge instructions: No Wound(s) Left trevizo: Wound Type: Stasis Ulcer Dressing Change: Adaptic Right trevizo: Wound Type: Stasis Ulcer Dressing Change: Adaptic Left upper arm: Wound Type: Abrasion Therapies Physical Therapy: Eval and Treat Occupational Therapy: Eval and Treat Problem/Diagnosis (1) Acute exacerbation of chronic heart failure: Status: Acute Code(s): I50.9 - Heart failure, unspecified Plan #1. 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 Patient being admitted from [facility] through ED. Serial troponins 176, 167 and 173, no significant delta change. proBNP high. Patient on IV furosemide 40 mg every 12 hourly. 2D echo shows EF 35% with moderate to severe hypokinesis. Stage III diastolic function. PASP 33 mmHg, moderate concentric LVH. Mild TR. 1-2+ eccentric MR. On low-dose metoprolol and losartan 07/30/2025: Ambulatory pulse ox today, continue with diuresis, he is down about 3 pounds since admission 07/31/2025: Obtain unable to wait pulse ox today as it does not appear 1 was done yesterday will continue diuresis pending pre-CERT #2. CAD: Status post CABG: Continue home Xarelto. Patient on a statin. Started on low-dose metoprolol succinate. BP on lower side therefore not good candidate for CITLALLI/ARB. 07/29: As per son patient had cardiac cath and angioplasty in [facility]. Does not have official medical report reviewed. Obtain medical records #3. myasthenia gravis: Currently no acute exacerbation. PT and OT #4. CML and history of DVT: Patient had chemotherapy in the past through the port in the left arm. He said he also had DVT in the leg and left arm close to the port. Continue Xarelto #5. History of CVA: On statin and Xarelto #6. History of complete heart block: Status post pacemaker placement, encourage continued outpatient follow-up and evaluation/interrogation as previously arranged. #7. Chronic macrocytic anemia: Admission hemoglobin 9.6, MCV 108, baseline hemoglobin appears primarily 8-9, stable, continue to trend. #8. Chronic Kidney Disease Stage IIIA: Admission BUN/Cr 46/1.31, GFR 52, baseline renal function more recently noted primarily 1.2-1.4, 07/29: Creatinine 1.23. On baseline. #9. PAF: Will continue patient home Xarelto regimen, per most recent list does not appear to be on rate or rhythm agent but clarified to be certain. #10. Hypertension: Noted history, per current list only on oral Lasix/metolazone, will maintain on metolazone and transition to IV Lasix given presentation as noted, as needed IV hydralazine additionally. #11. Hyperlipidemia: Continue home statin regimen. Lipid profile in normal limit #12. Hypothyroidism: TSH elevated 7.5. Home levothyroxine dose increased #13. Former tobacco use: Encourage continued tobacco cessation. #14. Chronic bilateral lower extremity lymphedema: Complicates presentation, continue evaluation and treatment as noted, standing citlalli wraps with elevation. DVT: Xarelto Allergies/Procedures Done in Hospital Allergies simvastatin Allergy (Intermediate, Verified 07/28/25 18:36) Other Procedures: 2-D Echocardiogram Type of Care/Length of Stay Estimated LOS: Convalescent Care Less Than 30 days Type of Care Needed: Skilled Rehab Potential: Fair Prognosis: Fair Additional Orders/Day of Discharge Day of Discharge: 07/31/25 Dietary and Speech Recommendations Dietitian Recommendations/Changes: Continue cardiac diet with 1500mL/day FR. Will add ensure plus HP as needed to supplement meal intake. Discharge Plan Admission Admit Date/Time: 07/28/25 22:40 Attending Provider: Luis Oleary Primary Care Provider: Ronaldo Murillo Consulting Providers: Cami Wang; Marshal Rebolledo Discharge Orders/Prescriptions Prescriptions: Continued cyanocobalamin (vitamin B-12) 1,000 mcg capsule 1,000 mcg PO DAILY cholecalciferol (vitamin D3) 25 mcg (1,000 unit) tablet 25 mcg PO DAILY multivitamin Tablet 1 tab PO DAILY Xarelto 20 mg tablet 20 mg PO QPM Rx Instructions: must administer with evening meal aspirin [Adult Aspirin Regimen] 81 mg tablet,delayed release (DR/EC) 81 mg PO QDAY spironolactone 25 mg tablet 12.5 mg PO QDAY losartan 25 mg tablet 12.5 mg PO QDAY Patient Comments: hold if SBP <120 levothyroxine 112 mcg capsule 112 mcg PO QDAY Jardiance 10 mg tablet 10 mg PO QAM atorvastatin 20 mg tablet 20 mg PO QHS folic acid 1 mg Tablet 1 mg PO BREAKFAST 30 Days Qty: 30 2RF polyethylene glycol 3350 [Miralax] 17 gram/dose powder 17 g PO DAILY PRN (Reason: constipation) Qty: 238 0RF nitroglycerin 0.4 mg tablet, sublingual 0.4 mg sublingual Q5M Rx Instructions: do not exceed 3 doses per episode potassium chloride 20 mEq Tablet,Er Particles/Crystals 40 meq PO BIDCM 30 Days Qty: 120 0RF furosemide 40 mg tablet 40 mg PO BID 30 Days Qty: 0 0RF Rx Instructions: TAKE 1 TABLET TWO TIMES A DAY. AM AND NOON Referrals / Follow Up: Ronaldo Murillo MD [Primary Care Provider, Internal Medicine] Disposition Disposition (needs filled in before D/C Order can be placed): [facility]
[2025-07-31 13:23] LABS: Anisocytosis 1+
--- NOTE | 2025-07-31 13:32 | PHA.DC.MR.R ---
Pharmacy [place] Med Reconciliation Pharmacy Service has performed discharge medication reconciliation for this patient. The patient's discharge medication list was reviewed for discrepancies and discrepancies were resolved. Medications at Discharge Home Medications cholecalciferol (vitamin D3) 25 mcg (1,000 unit) tablet 25 mcg PO DAILY vitamin 04/09/23 cyanocobalamin (vitamin B-12) 1,000 mcg capsule 1,000 mcg PO DAILY suppliment 04/09/23 multivitamin 1 tab PO DAILY supplement 04/09/23 rivaroxaban 20 mg tablet (Xarelto) 20 mg PO QPM afib 04/09/23 atorvastatin 20 mg tablet 20 mg PO QHS colesterol 05/14/23 folic acid 1 mg tablet 1 mg PO BREAKFAST 30 days #30 tabs 05/18/23 polyethylene glycol 3350 17 gram/dose oral powder (Miralax) 17 g PO DAILY PRN constipation #238 grams 05/20/23 nitroglycerin 0.4 mg sublingual tablet 0.4 mg sublingual Q5M chest pain 06/23/25 furosemide 40 mg tablet 40 mg PO BID heart failure 30 days #0 tabs 06/26/25 potassium chloride 20 mEq tablet,extended release(part/cryst) 40 meq (2 x 20 mEq) PO BIDCM dr ordered 30 days #120 tabs 06/26/25 aspirin 81 mg tablet,delayed release (Adult Aspirin Regimen) [address] ordered 07/28/25 empagliflozin 10 mg tablet (Jardiance) 10 mg PO QAM sugar 07/28/25 levothyroxine 112 mcg capsule 112 mcg PO QDAY thyroid 07/28/25 losartan 25 mg tablet 12.5 mg PO QDAY BP 07/28/25 spironolactone 25 mg tablet 12.5 mg PO QDAY heart failure 07/28/25
--- NOTE | 2025-07-31 14:05 | NURSING ---
Report called to Julissa at [facility].
[2025-07-31 14:09] VITALS: BP 104/58; PULSE 82; RESP 18; TEMP 36.6; O2SAT 94
--- NOTE | 2025-07-31 14:16 | DS.PCM_ITS ---
Providers Date of Admission: 07/28/25 Primary Care Physician: Dr. 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 of wounds in chart Reason For Visit: HF EXACERBATION Diagnosis Discharge Diagnosis (1) Acute exacerbation of chronic heart failure: Status: Acute Code(s): I50.9 - Heart failure, unspecified Plan #1. 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 Patient being admitted from [facility] through ED. Serial troponins 176, 167 and 173, no significant delta change. proBNP high. Patient on IV furosemide 40 mg every 12 hourly. 2D echo shows EF 35% with moderate to severe hypokinesis. Stage III diastolic function. PASP 33 mmHg, moderate concentric LVH. Mild TR. 1-2+ eccentric MR. On low-dose metoprolol and losartan 07/30/2025: Ambulatory pulse ox today, continue with diuresis, he is down about 3 pounds since admission 07/31/2025: Obtain unable to wait pulse ox today as it does not appear 1 was done yesterday will continue diuresis pending pre-CERT #2. CAD: Status post CABG: Continue home Xarelto. Patient on a statin. Started on low-dose metoprolol succinate. BP on lower side therefore not good candidate for CITLALLI/ARB. 07/29: As per son patient had cardiac cath and angioplasty in [facility]. Does not have official medical report reviewed. Obtain medical records #3. myasthenia gravis: Currently no acute exacerbation. PT and OT #4. CML and history of DVT: Patient had chemotherapy in the past through the port in the left arm. He said he also had DVT in the leg and left arm close to the port. Continue Xarelto #5. History of CVA: On statin and Xarelto #6. History of complete heart block: Status post pacemaker placement, encourage continued outpatient follow-up and evaluation/interrogation as previously arranged. #7. Chronic macrocytic anemia: Admission hemoglobin 9.6, MCV 108, baseline hemoglobin appears primarily 8-9, stable, continue to trend. #8. Chronic Kidney Disease Stage IIIA: Admission BUN/Cr 46/1.31, GFR 52, baseline renal function more recently noted primarily 1.2-1.4, 07/29: Creatinine 1.23. On baseline. #9. PAF: Will continue patient home Xarelto regimen, per most recent list does not appear to be on rate or rhythm agent but clarified to be certain. #10. Hypertension: Noted history, per current list only on oral Lasix/metolazone, will maintain on metolazone and transition to IV Lasix given presentation as noted, as needed IV hydralazine additionally. #11. Hyperlipidemia: Continue home statin regimen. Lipid profile in normal limit #12. Hypothyroidism: TSH elevated 7.5. Home levothyroxine dose increased #13. Former tobacco use: Encourage continued tobacco cessation. #14. Chronic bilateral lower extremity lymphedema: Complicates presentation, continue evaluation and treatment as noted, standing citlalli wraps with elevation. DVT: Xarelto Medications at Discharge Home Medications cholecalciferol (vitamin D3) 25 mcg (1,000 unit) tablet 25 mcg PO DAILY vitamin 04/09/23 cyanocobalamin (vitamin B-12) 1,000 mcg capsule 1,000 mcg PO DAILY suppliment 04/09/23 multivitamin 1 tab PO DAILY supplement 04/09/23 rivaroxaban 20 mg tablet (Xarelto) 20 mg PO QPM afib 04/09/23 atorvastatin 20 mg tablet 20 mg PO QHS colesterol 05/14/23 folic acid 1 mg tablet 1 mg PO BREAKFAST 30 days #30 tabs 05/18/23 polyethylene glycol 3350 17 gram/dose oral powder (Miralax) 17 g PO DAILY PRN constipation #238 grams 05/20/23 nitroglycerin 0.4 mg sublingual tablet 0.4 mg sublingual Q5M chest pain 06/23/25 furosemide 40 mg tablet 40 mg PO BID heart failure 30 days #0 tabs 06/26/25 potassium chloride 20 mEq tablet,extended release(part/cryst) 40 meq (2 x 20 mEq) PO BIDCM dr ordered 30 days #120 tabs 06/26/25 aspirin 81 mg tablet,delayed release (Adult Aspirin Regimen) [address] ordered 07/28/25 empagliflozin 10 mg tablet (Jardiance) 10 mg PO QAM sugar 07/28/25 levothyroxine 112 mcg capsule 112 mcg PO QDAY thyroid 07/28/25 losartan 25 mg tablet 12.5 mg PO QDAY BP 07/28/25 spironolactone 25 mg tablet 12.5 mg PO QDAY heart failure 07/28/25 Hospital Course Operations None Procedures 2-D Echocardiogram Summary of Care Provided Minutes Spent on Discharge: 33 Hospital Course: Per HPI: The patient is an 89 y/o M w/ PMHx: HFrEF, Chronic macrocytic anemia, CKD stage III unclear subtype or GFR trending, CAD status post CABG, Hx CVA, PAF, Hypothyroidism, HTN, HLD, CML, Chronic BL LE Lymphedema, Hx complete heart block status post pacemaker placement, Hx myasthenia gravis, Former tobacco use, recent admission at [facility] with discharge this past Thursday with HF Exacerbation placed on supplemental oxygen 2L NC and diuretics who presents to [facility] ED on 07/28/2025 with significant diffuse edema as well as shortness of breath with noted hypoxia requiring supplemental oxygen 2 L nasal cannula from recent admission at [facility] and increased dyspnea, orthopnea despite administration Lasix x 2 doses at facility prompting transition to ED for evaluation. Workup in the ED included T98.4, heart rate 82, BP 115/60, respiratory rate 18, 100% on 2 L nasal cannula with most recent repeat vitals heart rate 90, BP 117/78, 94% on room air, CBC with WBC 6.9, hemoglobin 9.6, MCV 108, platelet 207 with increased immature granulocytes, CMP with chloride 97, BUN/creatinine 46/1.31, GFR 52, glucose 125, AST 39 otherwise hepatic profile unremarkable, troponin 176 with repeat delta troponin 167, [place] [address], chest x-ray with mild cardiomegaly and mild pulmonary vascular congestion, EKG rate controlled fibrillation with right bundle branch block. In the ED patient administered Lasix 40 mg IV x 1. Hospital Course: #1. 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 Patient being admitted from [facility] through ED. Serial troponins 176, 167 and 173, no significant delta change. proBNP high. Patient on IV furosemide 40 mg every 12 hourly. 2D echo shows EF 35% with moderate to severe hypokinesis. Stage III diastolic function. PASP 33 mmHg, moderate concentric LVH. Mild TR. 1-2+ eccentric MR. On low-dose metoprolol and losartan 07/30/2025: Ambulatory pulse ox today, continue with diuresis, he is down about 3 pounds since admission 07/31/2025: We received pre-CERT today for return to the snf for physical therapy. He does not require oxygen at rest and is doing well. I discussed with him the plan for discharge today and he expressed understanding of the risks and benefits of going back to the snf and would like to go today. Given the fact that he has a history of heart block and has a pacemaker in place, will hold off any beta-blockers on discharge. Will continue with his home Lasix dosing of 40 mg p.o. twice daily and would also encourage fluid restriction of 1500 cc while at the snf. #2. CAD: Status post CABG: Continue home Xarelto. Patient on a statin. Started on low-dose metoprolol succinate. BP on lower side therefore not good candidate for CITLALLI/ARB. 07/29: As per son patient had cardiac cath and angioplasty in [facility]. Does not have official medical report reviewed. Obtain medical records #3. myasthenia gravis: Currently no acute exacerbation. PT and OT #4. CML and history of DVT: Patient had chemotherapy in the past through the port in the left arm. He said he also had DVT in the leg and left arm close to the port. Continue Xarelto #5. History of CVA: On statin and Xarelto #6. History of complete heart block: Status post pacemaker placement, encourage continued outpatient follow-up and evaluation/interrogation as previously arranged. #7. Chronic macrocytic anemia: Admission hemoglobin 9.6, MCV 108, baseline hemoglobin appears primarily 8-9, stable, continue to trend. #8. Chronic Kidney Disease Stage IIIA: Admission BUN/Cr 46/1.31, GFR 52, baseline renal function more recently noted primarily 1.2-1.4, 07/29: Creatinine 1.23. On baseline. #9. PAF: Will continue patient home Xarelto regimen, per most recent list does not appear to be on rate or rhythm agent but clarified to be certain. #10. Hypertension: Noted history, per current list only on oral Lasix/metolazone, will maintain on metolazone and transition to IV Lasix given presentation as noted, as needed IV hydralazine additionally. #11. Hyperlipidemia: Continue home statin regimen. Lipid profile in normal limit #12. Hypothyroidism: TSH elevated 7.5. Home levothyroxine dose increased #13. Former tobacco use: Encourage continued tobacco cessation. #14. Chronic bilateral lower extremity lymphedema: Complicates presentation, continue evaluation and treatment as noted, standing citlalli wraps with elevation. Weight / BMI Weight Weight: 195 lb 5.273 oz Body Mass Index (BMI) 31.5 ABG / Lab / Microbiology Data 07/31/25 11:50 07/31/25 04:51 Laboratory: Laboratory Results - last 24 hr 07/31/25 04:51: WBC 8.2, RBC 2.64 L, Hgb 9.2 L, Hct 28.5 L, MCV 108.0 H, MCH 34.8 H, MCHC 32.3, RDW Std Deviation 97.6 H, RDW Coeff of Luis Alberto 25.2 H, Plt Count 187, MPV 11.3, Immature Gran % (Auto) 0.900, Neut % (Auto) 68.1, Lymph % (Auto) 11.6 L, [place] % (Auto) 17.1 H, Eos % (Auto) 1.1, Baso % (Auto) 1.2 H, Absolute Neuts (auto) 5.6, Absolute Lymphs (auto) 0.95, Nucleated RBC % 0.9, Differential Comment SCANNED, Platelet Estimate ADEQUATE, Hypochromasia 1+, Basophilic Stippling RARE, Anisocytosis 2+, Macrocytosis 2+, Target Cells 1+, Tear Drop Cells 1+, Ovalocytes 2+, Acanthocytes (Spur) RARE, Sodium 138, Potassium 4.6, C hloride 96 L, Carbon Dioxide 30.3, Anion Gap 11, BUN 45 H, Creatinine 1.25 H, E stim Creat Clear Calc 41.77 L, Est GFR (MDRD) Non-Af 55 L, BUN/Creatinine Ratio 35.6 H, Glucose 102 H, Calcium 8.6 07/31/25 11:50: WBC 7.2, RBC 2.63 L, Hgb 9.4 L, Hct 28.6 L, MCV 108.7 H, MCH 35.7 H, MCHC 32.9, RDW Std Deviation 99.2 H, RDW Coeff of Luis Alberto 25.0 H, Plt Count 182, MPV 11.0, Immature Gran % (Auto) 0.600, Neut % (Auto) 70.9 H, Lymph % (Auto) 11.2 L, [place] % (Auto) 15.5 H, Eos % (Auto) 0.7, Baso % (Auto) 1.1 H, Absolute Neuts (auto) 5.1, Absolute Lymphs (auto) 0.80 L, Nucleated RBC % 1.5, Anisocytosis 1+ D/C Instructions DC O2, CPAP, BIPAP Needs Home O2 Discharge instructions: No Meaningful Use Info Meaningful Use Meaningful Use Diagnoses (Choose all that apply): None applicable Discharge Plan Admission Admit Date/Time: 07/28/25 22:40 Attending Provider: Luis Oleary Primary Care Provider: Ronaldo Murillo Consulting Providers: Cami Wang; Marshal Rebolledo Discharge Orders/Prescriptions Prescriptions: Continued cyanocobalamin (vitamin B-12) 1,000 mcg capsule 1,000 mcg PO DAILY cholecalciferol (vitamin D3) 25 mcg (1,000 unit) tablet 25 mcg PO DAILY multivitamin Tablet 1 tab PO DAILY Xarelto 20 mg tablet 20 mg PO QPM Rx Instructions: must administer with evening meal aspirin [Adult Aspirin Regimen] 81 mg tablet,delayed release (DR/EC) 81 mg PO QDAY spironolactone 25 mg tablet 12.5 mg PO QDAY losartan 25 mg tablet 12.5 mg PO QDAY Patient Comments: hold if SBP <120 levothyroxine 112 mcg capsule 112 mcg PO QDAY Jardiance 10 mg tablet 10 mg PO QAM atorvastatin 20 mg tablet 20 mg PO QHS folic acid 1 mg Tablet 1 mg PO BREAKFAST 30 Days Qty: 30 2RF polyethylene glycol 3350 [Miralax] 17 gram/dose powder 17 g PO DAILY PRN (Reason: constipation) Qty: 238 0RF nitroglycerin 0.4 mg tablet, sublingual 0.4 mg sublingual Q5M Rx Instructions: do not exceed 3 doses per episode potassium chloride 20 mEq Tablet,Er Particles/Crystals 40 meq PO BIDCM 30 Days Qty: 120 0RF furosemide 40 mg tablet 40 mg PO BID 30 Days Qty: 0 0RF Rx Instructions: TAKE 1 TABLET TWO TIMES A DAY. AM AND NOON Referrals / Follow Up: Ronaldo Murillo MD [Primary Care Provider, Internal Medicine] Disposition Disposition (needs filled in before D/C Order can be placed): [facility] Charges/Coding Visit Charges Inpatient E&M: 99223 Disch Hosp >30min
--- NOTE | 2025-07-31 14:18 | CASEMGMT ---
Discharge Planning Discharge orders, signed med list, and transport time sent to [facility]. Physicians will transport pt by wheelchair at 2p. Nursing, SW, pt, and his daughter (Liza) updated. Almita Mccartney DC Planning Asst.
--- NOTE | 2025-07-31 15:20 | WOUNDNOTE ---
wound photo: right lower leg
--- NOTE | 2025-07-31 15:21 | WOUNDNOTE ---
wound photo: left lower leg
--- NOTE | 2025-07-31 15:22 | WOUNDNOTE ---
wound photo: left lower leg
== END 2025-07-31 14:33 | disposition skilled nursing facility (03) | DRG 291 ==
LOC: ED 22:46 → PCU 22:59
PROVIDERS: Admitting Provider Family Medicine; Emergency Provider Student in an Organized Health Care Education/Training Program; PCP Internal Medicine; Visit Provider Family Medicine
DX: I13.0 Hypertensive heart and chronic kidney disease with heart failure and stage 1 through stage 4 chronic kidney disease, or unspecified chronic kidney disease (principal); I50.43 Acute on chronic combined systolic (congestive) and diastolic (congestive) heart failure; C92.10 Chronic myeloid leukemia, BCR/ABL-positive, not having achieved remission; I24.89 Other forms of acute ischemic heart disease; Z66 Do not resuscitate; D53.9 Nutritional anemia, unspecified; E03.9 Hypothyroidism, unspecified; I48.0 Paroxysmal atrial fibrillation; G70.00 Myasthenia gravis without (acute) exacerbation; N18.31 Chronic kidney disease, stage 3a; I25.10 Atherosclerotic heart disease of native coronary artery without angina pectoris; E78.5 Hyperlipidemia, unspecified; I87.2 Venous insufficiency (chronic) (peripheral); I45.10 Unspecified right bundle-branch block; I89.0 Lymphedema, not elsewhere classified; Z79.01 Long term (current) use of anticoagulants; Z79.82 Long term (current) use of aspirin; R09.02 Hypoxemia; Z86.718 Personal history of other venous thrombosis and embolism; Z79.899 Other long term (current) drug therapy; Z86.73 Personal history of transient ischemic attack (TIA), and cerebral infarction without residual deficits; Z87.891 Personal history of nicotine dependence; Z95.0 Presence of cardiac pacemaker; Z92.21 Personal history of antineoplastic chemotherapy; Z95.1 Presence of aortocoronary bypass graft
CPT/HCPCS: 36415; 71046; 80048; 80053; 80061; 83735; 83880; 84443; 84484; 85025; 93005; 93306; 94668; 97116; 97162; 97166; 97530; 97535; 97802; 99285; A4216; J1938

== ENCOUNTER → 2025-08-02 | Outpatient (REF) | payer MEDICARE, SELFPAY ==
[2025-08-02 08:22] LABS: Hematocrit 28.6 % (40-54); Hemoglobin 9.4 g/dL (13.0-16.5); Immature Granulocytes Count 0.090 X10^3/uL (0.0-0.0); Mean Corp Hgb Conc 32.9 g/dL (32-36); Mean Corpuscular Volume 106.3 fL (80-94); Mean Platelet Vol. 11.6 fl (6.2-12.0); NRBC Flagged by Analyzer 1.0 % (0-5); POSITIVE MORPHOLOGY YES; Platelet Count 191 K/mm3 (150-450); RBC Distribution Width CV 25.8 % (11.6-14.6); RBC Distribution Width SD 99.5 fl (35.1-43.9); Red Blood Count 2.69 M/mm3 (4.6-6.2); White Blood Count 8.6 K/mm3 (4.4-11.0)
[2025-08-02 08:29] LABS: Differential Indicated SCAN CRITERIA MET
[2025-08-02 08:40] LABS: Anion Gap 10 (5-15); BUN 46 mg/dL (4-19); BUN/Creat Ratio 35.7 RATIO (10-20); Calcium,Total 9.1 mg/dL (7.6-11.0); Carbon Dioxide 29.0 mmol/L (21.0-32.0); Chloride 98 mmol/L (98-108); Glucose 93 mg/dL (70-99); Potassium 5.8 mmol/L (3.3-5.1)
[2025-08-02 08:52] LABS: Anisocytosis 1+
[2025-08-02 08:54] LABS: Polychromasia RARE
== END ==
LOC: OLS.WHLTCC 06:25
PROVIDERS: PCP Internal Medicine; Visit Provider Internal Medicine
DX: I50.43 Acute on chronic combined systolic (congestive) and diastolic (congestive) heart failure (principal)
CPT/HCPCS: 36415; 80048; 85025

== ENCOUNTER 2025-08-08 23:46 | Inpatient (IN) | payer MEDICARE, SELFPAY ==
[2025-08-08 23:53] VITALS: BP 104/73; PULSE 96; RESP 24; TEMP 37; O2SAT 100; O2SAT 98; BMI 33.3
[2025-08-09] VITALS (10 sets, daily range): BP systolic 63–114; BP diastolic 37–98; PULSE 56–96; RESP 12–22; TEMP 36.4–37.4; O2SAT 94–97; BMI 31.6; BMI 33.3
[2025-08-09 01:53] LABS: Hematocrit 26.6 % (40-54); Hemoglobin 8.8 g/dL (13.0-16.5); Immature Granulocytes Count 0.090 X10^3/uL (0.0-0.0); Mean Corp Hgb Conc 33.1 g/dL (32-36); Mean Corpuscular Volume 103.9 fL (80-94); Mean Platelet Vol. 10.9 fl (6.2-12.0); NRBC Flagged by Analyzer 0.5 % (0-5); POSITIVE DIFFERENTIAL YES; POSITIVE MORPHOLOGY YES; Platelet Count 223 K/mm3 (150-450); RBC Distribution Width CV 26.0 % (11.6-14.6); RBC Distribution Width SD 96.5 fl (35.1-43.9); Red Blood Count 2.56 M/mm3 (4.6-6.2); White Blood Count 16.6 K/mm3 (4.4-11.0)
[2025-08-09 01:54] LABS: Differential Indicated SCAN CRITERIA MET
[2025-08-09 02:10] LABS: Prothrombin Time (Protime)PT. 29.5 SECONDS (11.7-14.9)
[2025-08-09 02:11] LABS: Partial Thromboplast Time 43.8 Seconds (24.1-36.2)
--- NOTE | 2025-08-09 02:30 | ED.RN ---
Per family member at bedside, manual BPs only for patient due to him being inaccurately hypotensive with automatic BPs.
[2025-08-09 02:45] LABS: Procalcitonin 0.16 ng/mL (<=0.10)
[2025-08-09 02:49] LABS: Anion Gap 13 (5-15); BUN 94 mg/dL (4-19); BUN/Creat Ratio 36.5 RATIO (10-20); Calcium,Total 8.7 mg/dL (7.6-11.0); Carbon Dioxide 25.9 mmol/L (21.0-32.0); Chloride 97 mmol/L (98-108); Estimated Creatinine Clearance 20.79 ml/min (50-250); Glucose 103 mg/dL (70-99); Potassium 6.9 mmol/L (3.3-5.1)
[2025-08-09] MEDS: Piperacil/Tazobactam 3.375 GM in 0.9% Normal Saline (50mL MB+) 50 ML IV (02:58)
--- NOTE | 2025-08-09 03:25 | PCM.HP.STD ---
HPI - General General Date of Admission: 08/09/25 Date of Service: 08/09/25 Chief Complaint: LUE pain, edema, redness. HPI Narrative The patient is an 89 y/o M w/ PMHx: Hx CVA, Hypothyroidism, chronic bilateral lower extremity lymphedema, CKD stage III unclear subtype per GFR trending, Chronic macrocytic anemia, Chronic AF, RLS, Chronic myelomonocytic leukemia, HFcombined EF, Hx Complete HB s/p pacemaker placement, HTN, HLD, Myasthenia gravis, CAD s/p CABG, Former tobacco use who presents to the [facility] ED on 08/09/2025 with history of going to be without issue with upon awakening just prior to ED arrival with LUE elbow->hand erythema, edema, painful as well as increased warmth to touch similar to his prior cellulitis presentations with no fever or chills prompting ED evaluation to be cautious. Patient of note had recent lasix increase outpatient. Workup in the ED included T98.6, heart rate 96, BP 104/73, respiratory rate 24, 100% on 3 L nasal cannula with most recent repeat vitals heart rate 85, BP 10 10/70, respiratory rate 22, 95% on room air, CBC with WC 16.6, hemoglobin 8.8, MCV 103.9, platelet 223 with left shift and lymphopenia, coags with INR 2.7, BMP with potassium 6.9 noted to be hemolyzed, BUN/creatinine 94/2.58, GFR 23, glucose 103, lactic acid 1.4, procalcitonin 0.16, blood culture x 2 pending per ED. In the ED patient ministered morphine 2 mg IV x 1, Zofran 4 mg IV x 1 as well as Zosyn 3.375 mg IV x 1. [facility] Medical History Chronic atrial fibrillation Anemia Restless legs syndrome Diverticulosis of intestine, part unspecified, without perforation or abscess without bleeding Vitamin D deficiency Nonrheumatic tricuspid (valve) insufficiency Acute on chronic combined systolic (congestive) and diastolic (congestive) heart failure Chronic anticoagulation Cellulitis Hypoxemia CMML (chronic myelomonocytic leukemia) Acquired immunocompromised state Lumbar stenosis Nocturnal hypoxemia Osteoarthritis Myasthenia gravis Cerebral vascular accident (~08/2022) Complete heart block Coronary artery disease (~09/2022) Hypothyroidism HLD (hyperlipidemia) Benign essential HTN Home Medications ?Medication ?Instructions ?Recorded ?Last Taken ?Type cholecalciferol (vitamin D3) 25 25 mcg PO DAILY vitamin 04/09/23 07/28/25 History mcg (1,000 unit) tablet cyanocobalamin (vitamin B-12) 1,000 mcg PO DAILY suppliment 04/09/23 05/14/23 History 1,000 mcg capsule multivitamin 1 tab PO DAILY supplement 04/09/23 07/28/25 History rivaroxaban 20 mg tablet (Xarelto) 20 mg PO QPM afib 04/09/23 07/27/25 History atorvastatin 20 mg tablet 20 mg PO QHS colesterol 05/14/23 07/27/25 History folic acid 1 mg tablet 1 mg PO BREAKFAST 30 days #30 tabs 05/18/23 Unknown Rx polyethylene glycol 3350 17 17 g PO DAILY PRN constipation 05/20/23 Unknown Rx gram/dose oral powder (Miralax) #238 grams nitroglycerin 0.4 mg sublingual 0.4 mg sublingual Q5M chest pain 06/23/25 Unknown History tablet aspirin 81 mg tablet,delayed [address] jamison 07/28/25 07/28/25 History release (Adult Aspirin Regimen) empagliflozin 10 mg tablet 10 mg PO QAM sugar 07/28/25 07/28/25 History (Jardiance) levothyroxine 112 mcg capsule 112 mcg PO QDAY thyroid 07/28/25 07/28/25 History carvedilol 3.125 mg tablet (Coreg) 3.125 mg PO BID #60 tabs 08/04/25 Unknown Rx furosemide 40 mg tablet 40 mg PO TID heart failure 30 days 08/04/25 Unknown Rx #90 tabs spironolactone 25 mg tablet 25 mg PO QDAY #60 tabs 08/04/25 Unknown Rx Allergy/AdvReac Type Severity Reaction Status Date / Time simvastatin Allergy Intermediate Other Verified 08/08/25 23:51 Family History Mother Heart disease Father Heart disease Surgical History History of ankle surgery (~12/2020) History of arthroplasty of right shoulder (~2008) Pacemaker (09/17/22) Hx of CABG (07/22/21) Social History household members: none Smoking Status: Former smoker how long ago did patient quit smokinyrs alcohol intake: current alcohol intake frequency: a few times a week details: 1-2 beers per month substance use type: does not use caffeine: Yes ROS ROS Narrative Admission Review of Systems: CONSTITUTIONAL: No weight loss, fever, chills, + weakness or fatigue. HEENT: Eyes: No visual loss, blurred vision, double vision or yellow sclerae. Ears, Nose, Throat: No hearing loss, sneezing, congestion, runny nose or sore throat. SKIN: No rash or itching, lesions, wounds except + occasional stage ecchymoses, abrasions and LUE redness. CARDIOVASCULAR: + Chronic lymphedema, BL LE, new onset LUE edema. No chest pain, chest pressure or chest discomfort, palpitations, syncopal events. RESPIRATORY: No marked dyspnea, cough, markedly productive sputum, wheezing, hemoptysis. GASTROINTESTINAL: No anorexia, nausea, vomiting or diarrhea, abdominal pain, melena, BRBPR. GENITOURINARY: No dysuria, frequency, urgency or retention. NEUROLOGICAL: No headache, dizziness, syncope, paralysis, ataxia, numbness or tingling in the extremities, focal weakness, change in bowel or bladder control, seizure. MUSCULOSKELETAL: + muscle, back pain, joint pain or stiffness. HEMATOLOGIC: + Chronic anemia, easy bleeding/bruising. LYMPHATICS: No enlarged nodes. No history of splenectomy. PSYCHIATRIC: No history of depression or anxiety. ENDOCRINOLOGIC: No reports of sweating, cold or heat intolerance. No polyuria or polydipsia. ALLERGIES: No history of asthma, hives, eczema or rhinitis. Vital Signs Vital Signs Vital Signs: 08/08/25 23:53 08/09/25 01:46 08/09/25 03:14 Temperature 98.6 F 99.1 F Temperature Source Oral Oral Pulse Rate 96 85 96 Respiratory Rate 24 H 22 H 17 Blood Pressure 104/73 110/70 105/55 L Blood Pressure Mean 83 83 71 Pulse Ox 100 95 96 Oxygen Delivery Method Nasal Cannula Room Air Room Air Oxygen Flow Rate (L/min) 3 Weight Weight: 206 lb 5.643 oz Body Mass Index (BMI) 33.3 Physical Exam Narrative Physical Examination: General: Awakens to stimuli, intermittently alert but patient is very fatigued, recently administered morphine and resultingly somnolent, laying in the ED bed, no acute distress but does grimace with palpation of the left upper extremity Skin: Normal color, normal turgor, no icterus, no cyanosis except for occasional stage ecchymoses, abrasion, notable left upper extremity elbow to hand circumferential erythema, tenderness to palpation, increased warmth and edema. HEENT: AT/NC, EOMI, PERRLA, dry MM, no carotid bruits or JVD noted. Lungs: Mild diminished, greater bases, poor effort no rales, ronchi or wheezing. Heart: Regular rate and rhythm; no gallop, rub audible. Abdomen: Soft, obese, NTTP, ND, distant normal BS, no appreciated HSM. Extremities: No cyanosis, no clubbing, chronic bilateral lower extremity 2+ pitting edema pedal to mid trevizo, see skin with noted left upper extremity marked findings, pitting edema evident also. Neurological: Awakens to stimuli, intermittently alert but patient is very fatigued, recently administered morphine and resultingly somnolent, laying in the ED bed, no acute distress but does grimace with palpation of the left upper extremity, cognitive function decreased from baseline intact following recent morphine administration, pupils equally reactive to light and accommodation, cranial nerves grossly normal, moving all 4 extremities, strength moderately to severely globally decreased. Psychiatric: Affect appears flat, fatigued, somnolent, no acute evidence of depressive or anxiety feelings. Results Lab / Micro Data 08/09/25 01:40 08/09/25 03:10 Labs: Laboratory Results - last 24 hr 08/09/25 01:40: WBC 16.6 H, RBC 2.56 L, Hgb 8.8 L, Hct 26.6 L, MCV 103.9 H, MCH 34.4 H, MCHC 33.1, RDW Std Deviation 96.5 H, RDW Coeff of Luis Alberto 26.0 H, Plt Count 223, MPV 10.9, Immature Gran % (Auto) 0.500, Neut % (Auto) 89.8 H, Lymph % (Auto) 3.5 L, Bertie % (Auto) 5.8, Eos % (Auto) 0.2, Baso % (Auto) 0.2, Absolute Neuts (auto) 14.9 H, Absolute Lymphs (auto) 0.58 L, Nucleated RBC % 0.5, PT 29.5 H, INR 2.7, APTT 43.8 H, Sodium 136, Potassium 6.9 H*, Chloride 97 L, Carbon Dioxide 25.9, Anion Gap 13, BUN 94 H, Creatinine 2.58 H, Estim Creat Clear Calc 20.79 L, Est GFR (MDRD) Non-Af 23 L, BUN/Creatinine Ratio 36.5 H, Glucose 103 H, Lactic Acid 1.4, Calcium 8.7, Procalcitonin 0.16 H Assessment & Plan Assessment/Plan (1) Cellulitis: PLAN: Plan The patient is an 89 y/o M w/ PMHx: Hx CVA, Hypothyroidism, chronic bilateral lower extremity lymphedema, CKD stage III unclear subtype per GFR trending, Chronic macrocytic anemia, Chronic AF, RLS, Chronic myelomonocytic leukemia, HFcombined EF, Hx Complete HB s/p pacemaker placement, HTN, HLD, Myasthenia gravis, CAD s/p CABG, Former tobacco use who presents to the [facility] ED on 08/09/2025 with history of going to be without issue with upon awakening just prior to ED arrival with LUE elbow->hand erythema, edema, painful as well as increased warmth to touch similar to his prior cellulitis presentations with no fever or chills prompting ED evaluation to be cautious. #1. LUE Extremity Cellulitis: Will admit to PCU given possible hypokalemia, maintain on IV Zosyn and Vanc with MRSA screen requested with de-escalation if negative, plan repeat CBC in AM, continue affected extremity elevation above heart when seated and in bed, monitor erythema outline with VS checks, ESR and CRP requested, low threshold to obtain duplex US to assure no DVT concurrently. #2. Acute kidney injury on CKD stage III unclear subtype or GFR trending: Secondary to likely recent nephrotoxic medication increase specifically Lasix. Admission BUN/Cr 94/2.58, GFR 23, prior baseline creatinine noted to be primarily 1.2-1.4, most recently 08/02/2024 creatinine 1.29. Will hydrate, hold nephrotoxic medications and repeat chemistry in AM, pending FeNa assessment. #3. Hyperkalemia, falsely elevated secondary to hemolysis: ED potassium 6.9 however this is noted to be hemolyzed, will request repeat BMP now to ensure appropriate level however if it is not we will initiate hyperkalemic protocol. In the interim we will maintain on telemetry. #4. Chronic atrial fibrillation: Given hypotension will temporally hold Coreg regimen, add back once appropriate, change Xarelto to renal dosing. #5. HF combined EF: Most recent echocardiogram noted 07/28/2025 with normal LV size, LVEF 35%, moderate to severe global hypokinesis LV, stage III diastolic dysfunction, PASP 33 mmHg, moderate concentric LVH, will continue aspirin, change Xarelto to renal dosing, continue statin therapy, temporally holding hypertensive regimen given hypotension and DANE, very judiciously hydrating given history. Recent notable Lasix increase likely the etiology. #6. History complete heart block: Status post previous pacemaker placement, encourage continued follow-up and evaluation/interrogation outpatient as previously arranged. #7. CAD: Status post CABG, will continue patient aspirin, Xarelto however transition to renal dosing, statin therapy, temporally holding patient hypertensive regimen as noted, add back once appropriate. #8. CMML: Previously noted to be on chemotherapy per record following with [facility] oncologist Dr. Dozier, and Phos requested, encourage continued follow-up as previously arranged. #9. Chart reported history of myasthenia gravis: Complicates presentation, PT/OT/CM consult for discharge planning, avoid exacerbating medications as able, currently on a statin therapy and also on Coreg of note. #10. History of CVA: Will continue patient on Xarelto with renal dosing transition, aspirin, statin therapy, temporally holding hypertensive regimen given hypotension as noted, judiciously hydrating. #11. Hypertension: Given the lower BP upon current presentation will temporally hold all hypertensive regimen, judiciously hydrating, add back once clinically appropriate. #12. Hyperlipidemia: Will continue patient on statin therapy. #13. Hypothyroidism: Continue patient levothyroxine regimen. #14. Chronic macrocytic anemia: Admission hemoglobin 8.8, MCV 103.9, baseline primarily 8-9, stable, continue to trend. #15. Chronic bilateral lower extremity lymphedema: Will place snug CITLALLI wraps with elevation. #16. VTE: Noted chronic clot in the possibly SC per family. #17. Former tobacco use: Encouraged continued tobacco cessation. #18. DVT prophylaxis: Xarelto, will change to renal dosing. #19. CODE status: Patient JUDY is his son and living will is currently in place. Discussed CODE status at length including difference between FULL code, DNR-CCA and DNR-CC status. Following discussions about the differences in these status, requested DNR CCA with no intubation. Charges/Coding Visit Charges Inpatient E&M: 63804 Init Hosp L3
--- NOTE | 2025-08-09 03:30 | EDS_ITS ---
HPI History of Present Illness Chief Complaint: Upper Extremity Injury [facility] Medical History Chronic atrial fibrillation Anemia Restless legs syndrome Diverticulosis of intestine, part unspecified, without perforation or abscess without bleeding Vitamin D deficiency Nonrheumatic tricuspid (valve) insufficiency Acute on chronic combined systolic (congestive) and diastolic (congestive) heart failure Chronic anticoagulation Cellulitis Hypoxemia CMML (chronic myelomonocytic leukemia) Acquired immunocompromised state Lumbar stenosis Nocturnal hypoxemia Osteoarthritis Myasthenia gravis Cerebral vascular accident (~08/2022) Complete heart block Coronary artery disease (~09/2022) Hypothyroidism HLD (hyperlipidemia) Benign essential HTN Home Medications ?Medication ?Instructions ?Recorded ?Last Taken ?Type cholecalciferol (vitamin D3) 25 25 mcg PO DAILY vitami n 04/09/23 07/28/25 History mcg (1,000 unit) tablet cyanocobalamin (vitamin B-12) 1,000 mcg PO DAILY suppl iment 04/09/23 05/14/23 History 1,000 mcg capsule multivitamin 1 tab PO DAILY supplement 07/28/25 History rivaroxaban 20 mg tablet (Xarelto) 20 mg PO QPM afib 0 04/09/23 07/27/25 History atorvastatin 20 mg tablet 20 mg PO QHS colesterol 05/0107/27/25 History folic acid 1 mg tablet 1 mg PO BREAKFAST 30 days #3 0 tabs 05/18/23 Unknown Rx polyethylene glycol 3350 17 17 g PO DAILY PRN constipa tion 05/20/23 Unknown Rx gram/dose oral powder (Miralax) #238 grams nitroglycerin 0.4 mg sublingual 0.4 mg sublingual Q5M chest pain 06/23/25 Unknown History tablet aspirin 81 mg tablet,delayed [address] shaheen 07/28/25 07/28/25 History release (Adult Aspirin Regimen) empagliflozin 10 mg tablet 10 mg PO QAM sugar 07/28/25 07/28/25 History (Jardiance) levothyroxine 112 mcg capsule 112 mcg PO QDAY thyroid 07/28/25 07/28/25 History carvedilol 3.125 mg tablet (Coreg) 3.125 mg PO BID #60 tabs 08/04/25 Unknown Rx furosemide 40 mg tablet 40 mg PO TID heart failure 3 0 days 08/04/25 Unknown Rx #90 tabs spironolactone 25 mg tablet 25 mg PO QDAY #60 tabs Unknown Rx Allergy/AdvReac Type Severity Reaction Status Date / Time simvastatin Allergy Intermediate Other Verified 08/08/25 23:51 Family History Mother Heart disease Father Heart disease Surgical History History of ankle surgery (~12/2020) History of arthroplasty of right shoulder (~2008) Pacemaker (09/17/22) Hx of CABG (07/22/21) Social History household members: none Smoking Status: Former smoker how long ago did patient quit smokinyrs alcohol intake: current alcohol intake frequency: a few times a week details: 1-2 beers per month substance use type: does not use caffeine: Yes EXAM Physical Exam Const Vital Signs: 08/08/25 23:53 08/09/25 01:46 08/09/25 03:14 Temperature 98.6 F 99.1 F Temperature Source Oral Oral Pulse Rate 96 85 96 Respiratory Rate 24 H 22 H 17 Blood Pressure 104/73 110/70 105/55 L Blood Pressure Mean 83 83 71 Pulse Ox 100 95 96 Oxygen Delivery Method Nasal Cannula Room Air Room Air Oxygen Flow Rate (L/min) 3 MDM MDM Lab Data Labs: Laboratory Results - last 24 hr 08/09/25 01:40 WBC 16.6 H RBC 2.56 L Hgb 8.8 L Hct 26.6 L MCV 103.9 H MCH 34.4 H MCHC 33.1 RDW Std Deviation 96.5 H RDW Coeff of Luis Alberto 26.0 H Plt Count 223 MPV 10.9 Immature Gran % (Auto) 0.500 Neut % (Auto) 89.8 H Lymph % (Auto) 3.5 L Merrick % (Auto) 5.8 Eos % (Auto) 0.2 Baso % (Auto) 0.2 Absolute Neuts (auto) 14.9 H Absolute Lymphs (auto) 0.58 L Nucleated RBC % 0.5 PT 29.5 H INR 2.7 APTT 43.8 H Sodium 136 Potassium 6.9 H* Chloride 97 L Carbon Dioxide 25.9 Anion Gap 13 BUN 94 H Creatinine 2.58 H Estim Creat Clear Calc 20.79 L Est GFR (MDRD) Non-Af 23 L BUN/Creatinine Ratio 36.5 H Glucose 103 H Lactic Acid 1.4 Calcium 8.7 Procalcitonin 0.16 H Discharge Plan Disposition Disposition: Acute Care Hospital [facility]
--- NOTE | 2025-08-09 03:30 | EX.ED.DYSGE1 ---
HPI History of Present Illness Chief Complaint: Upper Extremity Injury Informant: patient and family Narrative Narrative: Patient is 89-year-old male with past medical history of hypertension hyperlipidemia hypothyroidism congestive heart failure and chronic atrial fibrillation on Xarelto. Patient and family state that yesterday he was at his baseline. He states he went to sleep this evening around 8 or 9:00 then awoke a few hours later and had pain redness and swelling of his left arm essentially from the elbow to the hand. Patient states there has been no recent trauma. Family states he has had previous bouts of cellulitis which have required hospitalization in the past. Patient reports he has been taking his medication as directed. 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 Lumbar stenosis Nocturnal hypoxemia Osteoarthritis Myasthenia gravis Cerebral vascular accident (~08/2022) Complete heart block Coronary artery disease (~09/2022) Hypothyroidism HLD (hyperlipidemia) Benign essential HTN Home Medications ?Medication ?Instructions ?Recorded ?Last Taken ?Type cholecalciferol (vitamin D3) 25 25 mcg PO DAILY vitamin 04/09/23 07/28/25 History mcg (1,000 unit) tablet cyanocobalamin (vitamin B-12) 1,000 mcg PO DAILY suppliment 04/09/23 05/14/23 History 1,000 mcg capsule multivitamin 1 tab PO DAILY supplement 04/09/23 07/28/25 History rivaroxaban 20 mg tablet (Xarelto) 20 mg PO QPM afib 04/09/23 07/27/25 History atorvastatin 20 mg tablet 20 mg PO QHS colesterol 05/14/23 07/27/25 History folic acid 1 mg tablet 1 mg PO BREAKFAST 30 days #30 tabs 05/18/23 Unknown Rx polyethylene glycol 3350 17 17 g PO DAILY PRN constipation 05/20/23 Unknown Rx gram/dose oral powder (Miralax) #238 grams nitroglycerin 0.4 mg sublingual 0.4 mg sublingual Q5M chest pain 06/23/25 Unknown History tablet aspirin 81 mg tablet,delayed [address] jamison 07/28/25 07/28/25 History release (Adult Aspirin Regimen) empagliflozin 10 mg tablet 10 mg PO QAM sugar 07/28/25 07/28/25 History (Jardiance) levothyroxine 112 mcg capsule 112 mcg PO QDAY thyroid 07/28/25 07/28/25 History carvedilol 3.125 mg tablet (Coreg) 3.125 mg PO BID #60 tabs 08/04/25 Unknown Rx furosemide 40 mg tablet 40 mg PO TID heart failure 30 days 08/04/25 Unknown Rx #90 tabs spironolactone 25 mg tablet 25 mg PO QDAY #60 tabs 08/04/25 Unknown Rx Allergy/AdvReac Type Severity Reaction Status Date / Time simvastatin Allergy Intermediate Other Verified 08/08/25 23:51 Family History Mother Heart disease Father Heart disease Surgical History History of ankle surgery (~12/2020) History of arthroplasty of right shoulder (~2008) Pacemaker (09/17/22) Hx of CABG (07/22/21) Social History household members: none Smoking Status: Former smoker how long ago did patient quit smokinyrs alcohol intake: current alcohol intake frequency: a few times a week details: 1-2 beers per month substance use type: does not use caffeine: Yes ROS ROS ED Constitutional Constitutional ED: Denies chills or fever(s) ENT ENT ED: Denies sore throat Cardiovascular Cardiovascular: Denies chest pain or racing heartbeat Respiratory/Chest Respiratory/Chest: Denies cough or dyspnea Gastrointestinal Gastrointestinal: Denies abdominal pain, diarrhea, nausea or vomiting Musculoskeletal Musculoskeletal: Reports other Details: Positive left arm pain and swelling Positive bilateral leg edema which is chronic in nature Integumentary Reports other Details: Positive redness left arm Neurologic Neurologic: Denies headache(s) Hematologic/Lymphatic Hematologic/Lymphatic: Reports easy bleeding and easy bruising EXAM Physical Exam Const Vital Signs: 08/08/25 23:53 08/09/25 01:46 08/09/25 03:14 Temperature 98.6 F 99.1 F Temperature Source Oral Oral Pulse Rate 96 85 96 Respiratory Rate 24 H 22 H 17 Blood Pressure 104/73 110/70 105/55 L Blood Pressure Mean 83 83 71 Pulse Ox 100 95 96 Oxygen Delivery Method Nasal Cannula Room Air Room Air Oxygen Flow Rate (L/min) 3 Positive well nourished and well developed General Appearance ED: well developed HEENT HEENT Narrative: Normocephalic atraumatic Eyes PERRL and EOMs intact bilaterally General Eye ED: Negative for scleral icterus Neck supple Resp Resp Narrative: Mild tachypnea is noted Breath sounds are diminished throughout with crackles in the bilateral bases consistent with history of CHF No nasal flaring or retractions or accessory muscle use Cardio regular rate Rate: other Other Details: Irregularly irregular rhythm with regular rate consistent history of chronic atrial fibrillation GI normal to inspection, nondistended, normoactive bowel sounds, non-tender, non-distended and no masses GI Narrative: No voluntary guarding or rigidity or pulsatile mass Auscultation: normoactive bowel sounds Palpation: soft Extremity Extremity Narrative: Left upper extremity is neurovascularly intact There is asymmetric swelling and redness extending from the left elbow down through the hand. There is faint asymmetric warmth with this. Compartments are soft and compressible going against compartment syndrome. No lymphangitic streaking is noted There is +2-3 pitting edema to the bilateral lower extremities that is equal and symmetric and chronic per patient Neuro oriented x3 and CN's II-XII intact bilaterally Sensorium / Orientation: alert Psych mental status grossly normal Skin Skin Narrative: Soft tissue changes of the left arm as documented above MDM MDM MDM Narrative Medical decision making narrative: Patient arrived to the ER overall with stable vitals. He was on oxygen but this is chronic in nature and at patient's baseline. He reported relatively quick onset of pain swelling and redness to the left arm without trauma. There is no findings of compartment syndrome by exam. There is concern for cellulitis but the drastic change from baseline and just a few hours is not typical for this. The patient could have failure of Xarelto and upper extremity DVT. Family does report he has had previous stroke and clot formation while on the medication. However at this time at night I cannot perform a venous duplex to check for an upper extremity DVT. In order to assess for potential developing infection basic labs will be obtained. The patient's white count is elevated at 16.6 and there is also elevation to the absolute neutrophil count concerning for developing infection. Therefore blood cultures were obtained and he was started on Zosyn. Patient and family do report they have increased his Lasix recently secondary to his increased leg swelling. His creatinine has now increased to 2.6 which is up by over 1 point from his baseline and therefore classifies as acute kidney injury. The potassium was elevated at 6.9 but it was hemolyzed so a repeat value was drawn. This was elevated at 6.8 but is also hemolyzed. I discussed the case with the hospitalist as I feel with the patient's white count and neutrophil count being elevated that the changes to the left arm could be truly infectious in nature and with the quick onset and spread I do feel he would require hospitalization and IV antibiotics. They agree with this and will admit the patient for continued evaluation and care. We discussed the 2 hemolyzed potassium values and at this time she will simply treat for hyperkalemia and repeat labs in the morning to assess for any improvement. The plan of care was discussed with patient and family and they are agreeable to it and therefore he will be admitted for continued evaluation and care at this time. History & Record Review Discussion w/independent historian: Patient and Family Lab Data Attestation: I reviewed the patient's lab results. Labs: Laboratory Results - last 24 hr 08/09/25 08/09/25 01:40 03:10 WBC 16.6 H RBC 2.56 L Hgb 8.8 L Hct 26.6 L MCV 103.9 H MCH 34.4 H MCHC 33.1 RDW Std Deviation 96.5 H RDW Coeff of Luis Alberto 26.0 H Plt Count 223 MPV 10.9 Immature Gran % (Auto) 0.500 Neut % (Auto) 89.8 H Lymph % (Auto) 3.5 L Taney % (Auto) 5.8 Eos % (Auto) 0.2 Baso % (Auto) 0.2 Absolute Neuts (auto) 14.9 H Absolute Lymphs (auto) 0.58 L Nucleated RBC % 0.5 Differential Comment SCANNED Platelet Estimate ADEQUATE Polychromasia 1+ Anisocytosis 2+ Macrocytosis 1+ Target Cells 1+ Ovalocytes 2+ Acanthocytes (Spur) 1+ Schistocytes 1+ PT 29.5 H INR 2.7 APTT 43.8 H Sodium 136 Potassium 6.9 H* 6.8 H* Chloride 97 L Carbon Dioxide 25.9 Anion Gap 13 BUN 94 H Creatinine 2.58 H Estim Creat Clear Calc 20.79 L Est GFR (MDRD) Non-Af 23 L BUN/Creatinine Ratio 36.5 H Glucose 103 H Lactic Acid 1.4 Calcium 8.7 Phosphorus 5.7 H Magnesium 2.6 H Procalcitonin 0.16 H Management Discussion w/another healthcare provider: Hospitalist Discharge Plan Dx/Rx/DC Orders Clinical Impression: Cellulitis of left upper extremity, Benign essential HTN, Hypothyroidism, Chronic atrial fibrillation, Congestive heart failure, Current use of detention anticoagulation, [id number] kidney injury Disposition Disposition: Acute Care Hospital [facility] Discharge Date/Time: 08/09/25 04:07
[2025-08-09 03:40] LABS: Potassium 6.8 mmol/L (3.3-5.1)
[2025-08-09 04:00] LABS: Anisocytosis 2+; Differential Comment SCANNED; Polychromasia 1+
[2025-08-09 04:01] LABS: Acanthocytes 1+; Macrocytosis 1+; Schistocytes 1+; Target Cells 1+
--- NOTE | 2025-08-09 04:05 | ED.RN ---
Several attempts made by multiple RNs to obtain a second IV without success. Dr Lloyd aware.
[2025-08-09 05:03] LABS: Hematocrit 25.1 % (40-54); Hemoglobin 8.3 g/dL (13.0-16.5); Immature Granulocytes Count 0.090 X10^3/uL (0.0-0.0); Mean Corp Hgb Conc 33.1 g/dL (32-36); Mean Corpuscular Volume 104.6 fL (80-94); Mean Platelet Vol. 10.4 fl (6.2-12.0); NRBC Flagged by Analyzer 0.3 % (0-5); POSITIVE DIFFERENTIAL YES; POSITIVE MORPHOLOGY YES; Platelet Count 163 K/mm3 (150-450); RBC Distribution Width CV 25.2 % (11.6-14.6); RBC Distribution Width SD 95.1 fl (35.1-43.9); Red Blood Count 2.40 M/mm3 (4.6-6.2); White Blood Count 16.5 K/mm3 (4.4-11.0)
[2025-08-09 05:04] LABS: Differential Indicated SCAN CRITERIA MET
[2025-08-09 05:30] LABS: AST(SGOT) 26 U/L (<=37); Alanine Aminotransfer ALT/SGPT 22 U/L (<=46); Albumin, Serum 3.5 g/dL (3.4-4.8); Alkaline Phosphatase 109 U/L (40-129); Anion Gap 12 (5-15); BUN 93 mg/dL (4-19); BUN/Creat Ratio 36.8 RATIO (10-20); Calcium,Total 8.4 mg/dL (7.6-11.0); Carbon Dioxide 25.8 mmol/L (21.0-32.0); Chloride 96 mmol/L (98-108); Estimated Creatinine Clearance 21.67 ml/min (50-250); Globulin 2.5 g/dL (2.2-4.2); Glucose 106 mg/dL (70-99); Potassium 6.3 mmol/L (3.3-5.1)
[2025-08-09] MEDS: Insulin Lispro 10 UNIT in Syringe 0 ML 6 UNIT IV (05:30)
[2025-08-09] MEDS: Albuterol *CONC* 2.5mg/0.5mL VIAL.NEB. 10 MG INHALATION (05:41)
[2025-08-09 05:43] LABS: Differential Comment SCANNED
[2025-08-09 05:44] LABS: Acanthocytes RARE; Anisocytosis 3+; Hypochromasia 1+; Macrocytosis 1+; Polychromasia 1+; Schistocytes RARE; Target Cells 1+; Tear Drop Cell RARE
[2025-08-09] MEDS: Vancomycin HCl 2,000 MG in 0.9% Normal Saline (500mL Bag) 500 ML 250 MG IV (06:01)
[2025-08-09] MEDS: 0.9% Normal Saline (1000mL) 1,000 ML 100 ML IV (06:01)
[2025-08-09 06:09] LABS: Magnesium 2.6 mg/dL (1.5-2.2)
--- NOTE | 2025-08-09 06:10 | PCM.RX.CS ---
Consult Antibiotic Management Pharmacy has been consulted to manage selected antibiotic: Vancomycin Type of Intervention Type of Consult: New start Suspected Infection Suspected Infection: Skin/Soft tissue Labs Labs: Sodium 134 mmol/L (133-145) 08/09/25 04:48 Potassium 6.3 mmol/L (3.3-5.1) H* 08/09/25 04:48 Chloride 96 mmol/L (98-108) L 08/09/25 04:48 Carbon Dioxide 25.8 mmol/L (21.0-32.0) 08/09/25 04:48 Anion Gap 12 (5-15) 08/09/25 04:48 BUN 93 mg/dL (4-19) H 08/09/25 04:48 Creatinine 2.52 mg/dL (0.70-1.20) H 08/09/25 04:48 Est GFR (MDRD) Non-Af 24 (>60) L 08/09/25 04:48 BUN/Creatinine Ratio 36.8 RATIO (10-20) H 08/09/25 04:48 Glucose 106 mg/dL (70-99) H 08/09/25 04:48 Dosing Weight Weight used for dosin kg Estimated Creatinine Clearance Estimated Creatinine Clearance: 21 Goal Trough Goal Trough: 15-20 mcg/mL Pharmacy Plan for Drug Dosing Pharmacy Plan for Drug Dosing: Pharmacy Service will continue to monitor and adjust dosing as required. Follow-Up Labs Follow-Up Labs: Trough: Vancomycin Date/Time Labs Ordered Labs to be done on [date and time ordered]: 08/11/25 @5380
[2025-08-09 08:10] LABS: CRP 22.80 mg/L (0.0-3.0)
[2025-08-09 09:19] LABS: Anion Gap 11 (5-15); BUN 95 mg/dL (4-19); BUN/Creat Ratio 35.7 RATIO (10-20); Calcium,Total 8.5 mg/dL (7.6-11.0); Carbon Dioxide 26.0 mmol/L (21.0-32.0); Chloride 100 mmol/L (98-108); Estimated Creatinine Clearance 20.53 ml/min (50-250)
--- NOTE | 2025-08-09 09:25 | SEPSISATNOTE ---
Sepsis Attestation Sepsis Alert: Yes Sepsis Attestation: Agree w/Sepsis Date exam was performed: 08/09/25 Time exam was performed: 09:28 Possible Source of Sepsis: Skin/soft tissue Sepsis Organ Dysfunction Criteria Present: SBP < 90 mmHg or MAP < 65 mmHg, SBP decrease of more than 40 mmHg, Acute Respiratory Failure (New need for BiPAP/CPAP or MV), Creatinine > 2.0 mg/dL, UOP < 0.5 mL/kg/hour for 2 consecutive hours, INR > 1.5 or aPTT > 60 sec, PaO2/FiO2 ratio < 300 and New/Unexplained change in mental status Fluid Resuscitation Fluid resuscitation indicated?: Yes Fluid Resuscitation ordered: 30 ml/kg fluid bolus ordered Amount of fluid ordered: 2,810 Sepsis Note Date exam was performed: 08/09/25 Time exam was performed: 11:45 Sepsis Attestation: Sepsis re-evaluation was performed Response to fluids: Non Fluid responsive hypotension and Vasopressors started (Vasopressin started but family elected DNR CC hospice therefore discontinued. Hospice consulted.)
[2025-08-09] MEDS: 0.9% Normal Saline (1000mL) 1,000 ML 999 ML IV ×3 (09:30→10:36)
[2025-08-09 09:32] LABS: Glucose 43 mg/dL (70-99); Potassium 6.2 mmol/L (3.3-5.1)
[2025-08-09 10:06] LABS: FI02 55.0; RR 12; SITE Not entered; VBG BASE EXCESS 8 mmol/L (-1.0-3.5); VBG PO2 77 mmHg (25-40); VBG SO2 94 % (50-70); VBG TCO2 35 mmol/L (23-33)
[2025-08-09] MEDS: 0.9% Saline Lock 10 ML Syringe IV ×3 (10:07→12:45)
--- NOTE | 2025-08-09 10:18 | RAD_ITS ---
PROCEDURE: CHEST 1 VIEW (PORTABLE) 08/09/2025 REASON FOR EXAM: SOB TECHNIQUE: Frontal view of the chest. COMPARISON: 07/28/2025 FINDINGS: Hardware: Bilateral total shoulder prosthesis in place. Heart: Heart size is moderately enlarged. Lungs: Diffuse bilateral ground-glass opacifications demonstrated more dense at the lung bases. There is a small to moderate right-sided pleural effusion. Elevated right hemidiaphragm. Bones: Degenerative changes are present. Other: Dual-chamber left-sided pacemaker remains stable. RAD/Chest 1 View (Portable) IMPRESSION: Mild congestive changes with interval development of a small to moderate right- sided pleural effusion. Reading Location: [place] [id number]
[2025-08-09 10:29] LABS: Hematocrit 22.3 % (40-54); Hemoglobin 7.2 g/dL (13.0-16.5); Immature Granulocytes Count 0.170 X10^3/uL (0.0-0.0); Mean Corp Hgb Conc 32.3 g/dL (32-36); Mean Corpuscular Volume 107.2 fL (80-94); Mean Platelet Vol. 11.5 fl (6.2-12.0); NRBC Flagged by Analyzer 0.9 % (0-5); POSITIVE DIFFERENTIAL YES; POSITIVE MORPHOLOGY YES; Platelet Count 162 K/mm3 (150-450); RBC Distribution Width CV 25.3 % (11.6-14.6); RBC Distribution Width SD 98.1 fl (35.1-43.9); Red Blood Count 2.08 M/mm3 (4.6-6.2); White Blood Count 18.2 K/mm3 (4.4-11.0)
--- NOTE | 2025-08-09 10:33 | PN.HOSP_ITS ---
Hospitalist Note Rapid response was called about 9:30 AM with hypotension, altered mental status, DANE on CKD and hyperkalemia and the patient was DNR CC arrest with no intubation. No DC shock discussed with the patient's daughter Patient's daughter present in the room. 63/28, pulse ox 96% on 10 L of oxygen. Patient kept dropping his blood pressure the lowest was 50/31. Patient was put on the BiPAP. ABG and critical labs including CBC, CMP, troponin, CPK, and lactate were ordered blood pressure went up to 71/31 and in the ICU blood pressure is in systolic 94 as in the monitor. Patient Gluco is a 43. BMP. D50 was given. Patient immediately started on IV fluid normal saline bolus, hyperkalemia cocktail with 3 g calcium gluconate, 1 amp of bicarb IV push. Discussed with the city plant supervisor. Twelve-lead EKG undetermined wide-complex rhythm but patient has RBBB and pacemaker. QRS 172 ms. QTc 539. On admission EKG A-fib with occasional ventricular paced complexes with PVC or aberrantly conducted complexes. RBBB. QTc 493 ms QRS 150 ms. Compared to the previous one, QRS complex was more prolonged. Initial VBG 7.36/mixed pCO2 59.8/77, total bicarb 33/35. Pulse ox 94% AB.355/59.8/76.7, base excess 7.8, bicarb 33. Pulse ox 94%. Patient blood pressure improved, transferred to ICU I communicated to the patient's daughter near the bedside who is power of civil litigation attorney for health. She confirmed that patient is DNR CC arrest with no intubation no shock. She also said no for central line or vasopressor. PICC line ordered.
--- NOTE | 2025-08-09 10:39 | EKG12_ITS ---
Test Reason : UNRESPONSIVE Blood Pressure : */* mmHG Vent. Rate : 100 BPM Atrial Rate : 101 BPM P-R Int : * ms QRS Dur : 172 ms QT Int : 418 ms P-R-T Axes : * 223 27 degrees QTcB Int : 539 ms Atrial fibrillation Right bundle branch block Possible Lateral infarct , age undetermined Inferior infarct , age undetermined Abnormal ECG When compared with ECG of 04-Aug-2025 14:04, MANUAL COMPARISON REQUIRED DATA IS UNCONFIRMED Confirmed by CASANDRA CAMP, KARL ([id number]), greeting card editor BEBO JUAN ([id number]) on 08/14/2025 6:34:27 AM Referred By: JOAO Confirmed By: KARL GUAJARDO MD
[2025-08-09 10:47] LABS: CPK Total, Creatine Kinase 33 U/L (24-195)
--- NOTE | 2025-08-09 10:49 | CASEMGMT ---
Social Work SW responded to rapid response. Pt's dgt Liza in room with pt at time of ICE GRINDER. Support provided to Liza throughout. Liza contacting siblings and sister Annette lives in the area and is on her way to the hospital. Liza states she is pt's HCPOA and that pt has expressed his wishes to Liza requesting DNR/DNI. SW walked Liza to ICU and settled dgt in the waiting room. GARTH spoke with pt ICU nurse and notified that pt dgt is in waiting room and requested RN update Liza when she can come to pt room. Liza took pt's glasses and dentures with her from the PCU room. Per Liza, pt lives alone at the independent living at [facility]. Pt has had several hospitalizations recently and was in the SNF rehab at [place] recently as well. Family and pt have been working toward possible placement in the [place] assisted living. SW remains available for additional support. ARTEM Pace
[2025-08-09 10:55] LABS: AST(SGOT) 37 U/L (<=37); Alanine Aminotransfer ALT/SGPT 29 U/L (<=46); Albumin, Serum 2.9 g/dL (3.4-4.8); Alkaline Phosphatase 93 U/L (40-129); Anion Gap 10 (5-15); BUN 95 mg/dL (4-19); BUN/Creat Ratio 34.8 RATIO (10-20); Calcium,Total 8.4 mg/dL (7.6-11.0); Carbon Dioxide 27.2 mmol/L (21.0-32.0); Chloride 100 mmol/L (98-108); Estimated Creatinine Clearance 20.00 ml/min (50-250); Globulin 2.2 g/dL (2.2-4.2); Glucose 85 mg/dL (70-99); Potassium 6.0 mmol/L (3.3-5.1); Troponin T High Sensitivity 194 ng/L (<=22)
[2025-08-09 11:05] LABS: Anisocytosis 3+; Basophilic Stippling 1+; Polychromasia 1+
--- NOTE | 2025-08-09 11:10 | PN.HOSP_ITS ---
Reason for Visit Chief Complaint: LUE pain, edema, redness. Objective Data Objective Data Vital Signs: Vital Signs Temp Pulse Resp BP Pulse Ox O2 Del Method O2 Flow Rate 99.4 F H 89 22 H 100/50 L 96 Nasal Cannula 4 08/09/25 03:59 08/09/25 03:59 08/09/25 03:59 08/09/25 03:59 08/09/25 03:59 08/09/25 05:42 08/09/25 05:42 Oxygen Flow Rate (L/min) 4 Oxygen Delivery Method Nasal Cannula Weight: 206 lb 5.643 oz Body Mass Index (BMI) 33.3 Intake & Output: Intake and Output for Last 24 Hours 08/07/25 08/08/25 08/09/25 23:59 23:59 23:59 Intake Total 300 / 300 Balance 300 / 300 Lab / Micro Data 08/09/25 09:43 08/09/25 08:30 Labs: Laboratory Results - last 24 hr 08/09/25 01:40: WBC 16.6 H, RBC 2.56 L, Hgb 8.8 L, Hct 26.6 L, MCV 103.9 H, MCH 34.4 H, MCHC 33.1, RDW Std Deviation 96.5 H, RDW Coeff of Luis Alberto 26.0 H, Plt Count 223, MPV 10.9, Immature Gran % (Auto) 0.500, Neut % (Auto) 89.8 H, Lymph % (Auto) 3.5 L, Traill % (Auto) 5.8, Eos % (Auto) 0.2, Baso % (Auto) 0.2, Absolute Neuts (auto) 14.9 H, Absolute Lymphs (auto) 0.58 L, Nucleated RBC % 0.5, Differential Comment SCANNED, Platelet Estimate ADEQUATE, Polychromasia 1+, Anisocytosis 2+, Macrocytosis 1+, Target Cells 1+, Ovalocytes 2+, Acanthocytes (Spur) 1+, Schistocytes 1+, PT 29.5 H, INR 2.7, APTT 43.8 H, Sodium 136, Potassium 6.9 H*, Chloride 97 L, Carbon Dioxide 25.9, Anion Gap 13, BUN 94 H, Creatinine 2.58 H, Estim Creat Clear Calc 20.79 L, Est GFR (MDRD) Non- Af 23 L, BUN/Creatinine Ratio 36.5 H, Glucose 103 H, Lactic Acid 1.4, Calcium 8.7, Procalcitonin 0.16 H 08/09/25 03:10: Potassium 6.8 H*, Phosphorus 5.7 H, Magnesium 2.6 H 08/09/25 04:48: WBC 16.5 H, RBC 2.40 L, Hgb 8.3 L, Hct 25.1 L, MCV 104.6 H, MCH 34.6 H, MCHC 33.1, RDW Std Deviation 95.1 H, RDW Coeff of Luis Alberto 25.2 H, Plt Count 163, MPV 10.4, Immature Gran % (Auto) 0.500, Neut % (Auto) 91.3 H, Lymph % (Auto) 3.0 L, [place]ill % (Auto) 4.9, Eos % (Auto) 0.1, Baso % (Auto) 0.2, Absolute Neuts (auto) 15.1 H, Absolute Lymphs (auto) 0.49 L, Nucleated RBC % 0.3, Differential Comment SCANNED, Platelet Estimate ADEQUATE, Plt Morphology Comment LARGE, Polychromasia 1+, Hypochromasia 1+, Anisocytosis 3+, Macrocytosis 1+, Target Cells 1+, Tear Drop Cells RARE, Ovalocytes 1+, Acanthocytes (Spur) RARE, Schistocytes RARE, ESR 9, Sodium 134, Potassium 6.3 H*, Chloride 96 L, Carbon Dioxide 25.8, Anion Gap 12, BUN 93 H, Creatinine 2.52 H, Estim Creat Clear Calc 21.67 L, Est GFR (MDRD) Non- Af 24 L, BUN/Creatinine Ratio 36.8 H, Glucose 106 H, Calcium 8.4, Total Bilirubin 1.15, AST 26, ALT 22, Alkaline Phosphatase 109, Total Protein 6.1, Albumin 3.5, Globulin 2.5, Albumin/Globulin Ratio 1.4 Physical Exam Narrative Seen and examined Rapid response called around 9:30 AM. Patient in shock state with hypotension and altered mental status. Upper extremity swelling Physical General: Unresponsive. Unconscious. HEENT: Atraumatic, PERRLA, EOMI, Normocephalic. Oral: Oral mucosa dry. Dentures removed Neck: Supple, No JVD, Negative Carotid Bruits Chest wall/Lungs: Air entry severely diminished bilateral lungs. Bilateral conducted sound Cardiovascular: Wide-complex rhythm on monitor but RBBB. Pacemaker on left subclavicular, irregular rhythm Abdomen: Bowel Sounds sluggish, Soft, Non Tender, Non-Distended : No dysuria. No renal angle tenderness. No suprapubic tenderness. Extremities: Bilateral 2+ pedal edema, Capillary Refill Less than 3 Seconds Skin: Lower legs erythematous with mild induration. Tenderness could not be appreciated as patient on consult but it was tender as per H&P Musculoskeletal: Musculature could not be evaluated Neurological: Neuro could not be evaluated Unresponsive Psych/Mental Status: Unresponsive Assessment & Plan Assessment/Plan (1) Cellulitis: PLAN: Plan The patient is an 89 y/o M came to ED with complaint of left arm pain starting 30 minutes prior to arrival. Left arm swelling was from elbow to hand, left elbow more erythematous than left hand, painful, increased warmth, started few hours later after he went to bed at 8 or 9 PM last night. No recent trauma. He had previous bouts of cellulitis which required hospitalization. #1. Sepsis with transient hypotension due to LUE Extremity Cellulitis complicated with chronic bilateral lymphedema: Patient transported to PACU late about [phone] 5 AM and and then soon had rapid response. Patient on IV vancomycin and Zosyn. Sepsis protocol followed with 30 mL/kg body weight. Please see sepsis note. The patient presented with sepsis with clinical indicators of hypoxia, tachypnea altered mental status/lethargy due to bilateral lower extremity with acute sepsis-related organ dysfunction as evidenced by hypotension, acute encephalopathy, drop in SBP more than 40 ABG, acute respiratory failure requiring BiPAP DANE on CKD, oliguria. Some endorgan perfusion markers like INR, creatinine and urine output may be biased by DANE on CKD and history of heart failure. Refrigerator Repair Technician and ID consulted. #2. Acute kidney injury on CKD stage III unclear subtype or GFR trending: Secondary to likely recent nephrotoxic medication increase specifically Lasix. Admission BUN/Cr 94/2.58, GFR 23, prior baseline creatinine noted to be primarily 1.2-1.4, most recently 08/02/2024 creatinine 1.29. Urinalysis ordered. Case Work Aide consulted. #3. Hyperkalemia,: Although initial sample was 6.9 but is still true was high 6.3. Calcium was 0.5 g IV push was given. Hyperkalemic cocktail was given in the ED and then given hyperkalemia cocktail including 3 g of calcium gluconate was given during rapid response. Patient Severe hypoglycemia: Glucose wa 43. Accu-Chek was 165. Repeat glucose 85 on BMP. #2. CAD: Status post CABG: Continue home Xarelto. Patient on a statin. Hold all antihypertensive medication as patient is in shock. Hold all cardiac medications metoprolol due to patient in sepsis. Started on low-dose metoprolol succinate. BP on lower side therefore not good candidate for CITLALLI/ARB. As per son patient had cardiac cath and angioplasty in [facility]. #3. myasthenia gravis: Currently no acute exacerbation. PT and OT #4. CML and history of DVT: Patient had chemotherapy in the past through the port in the left arm. He said he also had DVT in the leg and left arm close to the port. Continue Xarelto #5. History of CVA: On statin and Xarelto #6. Chronic HF combined, HFrEF and HFpEF, complete heart block status post pacemaker: Most recent echocardiogram noted 07/28/2025 with normal LV size, LVEF 35%, moderate to severe global hypokinesis LV, stage III diastolic dysfunction, PASP 33 mmHg, moderate concentric LVH: continue aspirin, change Xarelto to renal dosing, continue statin therapy. Hold Lasix and hypertensive due to DANE on CKD #7. Acute on chronic severe chronic macrocytic anemia: Admission hemoglobin 9.6, MCV 108, baseline hemoglobin appears primarily 8-9. Repeat H&H was 7.2/22.3% Triptil. 162. Xarelto discontinued for now #9. Chronic A-fib:Currently patient's rhythm is wide-complex and undetermined. #10. Hypertension: Noted history, per current list only on oral Lasix/metolazone, will maintain on metolazone and transition to IV Lasix given presentation as noted, as needed IV hydralazine additionally. #11. Hyperlipidemia: Continue home statin regimen. Lipid profile in normal limit #12. Hypothyroidism: TSH elevated 7.5. Home levothyroxine dose increased but patient not will take oral #13. Former tobacco use: Encourage continued tobacco cessation. #14. DVT prophylaxis: continue patient home Xarelto regimen. Laboratory Results 08/09/25 01:40: WBC 16.6 H, RBC 2.56 L, Hgb 8.8 L, Hct 26.6 L, MCV 103.9 H, MCH 34.4 H, MCHC 33.1, RDW Std Deviation 96.5 H, RDW Coeff of Luis Alberto 26.0 H, Plt Count 223, MPV 10.9, Immature Gran % (Auto) 0.500, Neut % (Auto) 89.8 H, Lymph % (Auto) 3.5 L, Traill % (Auto) 5.8, Eos % (Auto) 0.2, Baso % (Auto) 0.2, Absolute Neuts (auto) 14.9 H, Absolute Lymphs (auto) 0.58 L, Nucleated RBC % 0.5, Differential Comment SCANNED, Platelet Estimate ADEQUATE, Polychromasia 1+, Anisocytosis 2+, Macrocytosis 1+, Target Cells 1+, Ovalocytes 2+, Acanthocytes (Spur) 1+, Schistocytes 1+, PT 29.5 H, INR 2.7, APTT 43.8 H, Sodium 136, P otassium 6.9 H*, Chloride 97 L, Carbon Dioxide 25.9, Anion Gap 13, BUN 94 H, C reatinine 2.58 H, Estim Creat Clear Calc 20.79 L, Est GFR (MDRD) Non-Af 23 L, B UN/Creatinine Ratio 36.5 H, Glucose 103 H, Lactic Acid 1.4, Calcium 8.7, P rocalcitonin 0.16 H 08/09/25 03:10: Potassium 6.8 H*, Phosphorus 5.7 H, Magnesium 2.6 H 08/09/25 04:48: WBC 16.5 H, RBC 2.40 L, Hgb 8.3 L, Hct 25.1 L, MCV 104.6 H, MCH 34.6 H, MCHC 33.1, RDW Std Deviation 95.1 H, RDW Coeff of Luis Alberto 25.2 H, Plt Count 163, MPV 10.4, Immature Gran % (Auto) 0.500, Neut % (Auto) 91.3 H, Lymph % (Auto) 3.0 L, [place]ill % (Auto) 4.9, Eos % (Auto) 0.1, Baso % (Auto) 0.2, Absolute Neuts (auto) 15.1 H, Absolute Lymphs (auto) 0.49 L, Nucleated RBC % 0.3, Differential Comment SCANNED, Platelet Estimate ADEQUATE, Plt Morphology Comment LARGE, Polychromasia 1+, Hypochromasia 1+, Anisocytosis 3+, Macrocytosis 1+, Target Cells 1+, Tear Drop Cells RARE, Ovalocytes 1+, Acanthocytes (Spur) RARE, Schistocytes RARE, ESR 9, Sodium 134, Potassium 6.3 H*, Chloride 96 L, Carbon Dioxide 25.8, Anion Gap 12, BUN 93 H, Creatinine 2.52 H, Estim Creat Clear Calc 21.67 L, Est GFR (MDRD) Non-Af 24 L, BUN/Creatinine Ratio 36.8 H, Glucose 106 H, Calcium 8.4, Total Bilirubin 1.15, AST 26, ALT 22, Alkaline Phosphatase 109, C- React Prot Ext Range 22.80 H, Total Protein 6.1, Albumin 3.5, Globulin 2.5, Albumin/Globulin Ratio 1.4 08/09/25 06:51: Sodium Cancelled, Potassium Cancelled, Chloride Cancelled, Carbon Dioxide Cancelled, Anion Gap Cancelled, BUN Cancelled, Creatinine Cancelled, Estim Creat Clear Calc Cancelled, Est GFR (MDRD) Non-Af Cancelled, BUN/Creatinine Ratio Cancelled, Glucose Cancelled, Calcium Cancelled 08/09/25 08:30: Sodium 137, Potassium 6.2 H*, Chloride 100, Carbon Dioxide 26.0, Anion Gap 11, BUN 95 H, Creatinine 2.66 H, Estim Creat Clear Calc 20.53 L, Est GFR (MDRD) Non-Af 22 L, BUN/Creatinine Ratio 35.7 H, Glucose 43 L*, Calcium 8.5 08/09/25 09:33: POC Glucose 165 H 08/09/25 09:43: WBC 18.2 H, RBC 2.08 L, Hgb 7.2 L, Hct 22.3 L, MCV 107.2 H, MCH 34.6 H, MCHC 32.3, RDW Std Deviation 98.1 H, RDW Coeff of Luis Alberto 25.3 H, Plt Count 162, MPV 11.5, Immature Gran % (Auto) 0.900, Neut % (Auto) 92.7 H, Lymph % (Auto) 0.8 L, Traill % (Auto) 5.4, Eos % (Auto) 0.0, Baso % (Auto) 0.2, Absolute Neuts (auto) 16.8 H, Absolute Lymphs (auto) 0.15 L, Nucleated RBC % 0.9, Sodium 137, Potassium 6.0 H*, Chloride 100, Carbon Dioxide 27.2, Anion Gap 10, B UN 95 H, Creatinine 2.73 H, Estim Creat Clear Calc 20.00 L, Est GFR (MDRD) Non- Af 22 L, BUN/Creatinine Ratio 34.8 H, Glucose 85, Calcium 8.4, Total Bilirubin 1.44 H, AST 37, ALT 29, Alkaline Phosphatase 93, Total Creatine Kinase 33, T roponin T High Sens 194 H* D, Total Protein 5.1 L, Albumin 2.9 L, Globulin 2.2, Albumin/Globulin Ratio 1.3 08/09/25 09:45: Lactic Acid < 1.0 08/09/25 10:03: Specimen Type PRISCA, Sample Site Not entered, O2 % 55.0, VBG pH 7.36, VBG pO2 77 H, VBG HCO3 33 H, VBG Total CO2 35 H, VBG O2 Sat (Calc) 94 H, V BG Base Excess 8 H, POC Mix VBG pCO2 Pt Tmp 59.8 H, Respiration Rate 12, O2 Delivery Device BiPAP Charges/Coding Addendum Addendum: Total time of the visit including total time spent in counseling or coordination of care, (more than 50% of the total time, spent in obtaining medical information from nurses and other ancillary care providers ,explaining to the patient about labs, imaging, diagnosis and management of active complex medical conditions), management of rapid response, discussion with and rescue fire fighter crash fire, review of labs and imaging is 70 Procedures Hospitalists Procedures: [id number] Critical Care 1st Hr
[2025-08-09] MEDS: Norepinephrine 8 MG in 0.9% Normal Saline (250mL Bag) 242 ML 9.4 MG CONT INF (11:15)
[2025-08-09 11:36] LABS: Base Excess 4 mmol/L (-2 to +2); FI02 35.0; PEEP 10; PO2 83 mmHG (75-100); RR 12; SITE Art Line; SO2 94 % (95-99)
--- NOTE | 2025-08-09 11:37 | NURSING ---
Per Dr. Horowitz stop fluids now for fear of fluid overload. New fluid goal is 2300ml which patient has now met and start levophed. Patient's EF is 35%.
[2025-08-09] MEDS: Dextrose 5%/0.9% NaCl 1,000 ML 75 ML IV (11:38)
--- NOTE | 2025-08-09 11:51 | NURSING ---
[address] [employer] [address] Dr. Rebolledo at bedside See LINE CREW SUPERVISOR documentation for medications given, interventions, and VS during LINE CREW SUPERVISOR before transfer to ICU.
--- NOTE | 2025-08-09 11:52 | EX.PCM.CONCC ---
HPI Consult Data Date of Consult: 08/09/25 HPI Narrative HPI Narrative: SRINI LOZADA, is a 89 M who presents [ ] [facility] Medical History Chronic atrial fibrillation Anemia Restless legs syndrome Diverticulosis of intestine, part unspecified, without perforation or abscess without bleeding Vitamin D deficiency Nonrheumatic tricuspid (valve) insufficiency Acute on chronic combined systolic (congestive) and diastolic (congestive) heart failure Chronic anticoagulation Cellulitis Hypoxemia CMML (chronic myelomonocytic leukemia) Acquired immunocompromised state Lumbar stenosis Nocturnal hypoxemia Osteoarthritis Myasthenia gravis Cerebral vascular accident (~08/2022) Complete heart block Coronary artery disease (~09/2022) Hypothyroidism HLD (hyperlipidemia) Benign essential HTN Home Medications ?Medication ?Instructions ?Recorded ?Last Taken ?Type cholecalciferol (vitamin D3) 25 25 mcg PO DAILY vitamin 04/09/23 08/08/25 History mcg (1,000 unit) tablet cyanocobalamin (vitamin B-12) 1,000 mcg PO DAILY suppliment 04/09/23 08/08/25 History 1,000 mcg capsule multivitamin 1 tab PO DAILY supplement 04/09/23 08/08/25 History rivaroxaban 20 mg tablet (Xarelto) 20 mg PO QPM afib 04/09/23 08/08/25 History atorvastatin 20 mg tablet 20 mg PO QHS colesterol 05/14/23 08/08/25 History folic acid 1 mg tablet 1 mg PO BREAKFAST 30 days #30 tabs 05/18/23 08/08/25 Rx polyethylene glycol 3350 17 17 g PO DAILY PRN constipation 05/20/23 Unknown Rx gram/dose oral powder (Miralax) #238 grams nitroglycerin 0.4 mg sublingual 0.4 mg sublingual Q5M chest pain 06/23/25 Unknown History tablet aspirin 81 mg tablet,delayed [address] jamison 07/28/25 08/08/25 History release (Adult Aspirin Regimen) empagliflozin 10 mg tablet 10 mg PO QAM sugar 07/28/25 08/08/25 History (Jardiance) levothyroxine 112 mcg capsule 112 mcg PO QDAY thyroid 07/28/25 08/08/25 History carvedilol 3.125 mg tablet (Coreg) 3.125 mg PO BID #60 tabs 08/04/25 08/08/25 Rx furosemide 40 mg tablet 40 mg PO TID heart failure 30 days 08/04/25 08/08/25 Rx #90 tabs spironolactone 25 mg tablet 25 mg PO QDAY #60 tabs 08/04/25 08/08/25 Rx sacubitril 24 mg-valsartan 26 mg 1 tab PO BID CHF 08/09/25 08/08/25 History tablet (Entresto) trazodone 50 mg tablet 50 mg PO QHS insomnia 08/09/25 08/08/25 History Allergy/AdvReac Type Severity Reaction Status Date / Time simvastatin Allergy Intermediate Other Verified 08/08/25 23:51 Family History Mother Heart disease Father Heart disease Surgical History History of ankle surgery (~12/2020) History of arthroplasty of right shoulder (~2008) Pacemaker (09/17/22) Hx of CABG (07/22/21) Social History household members: none Smoking Status: Former smoker how long ago did patient quit smokinyrs alcohol intake: current alcohol intake frequency: a few times a week details: 1-2 beers per month substance use type: does not use caffeine: Yes Lab / Micro Data 08/09/25 09:43 08/09/25 09:43 Labs: Laboratory Results - last 24 hr 08/09/25 01:40: WBC 16.6 H, RBC 2.56 L, Hgb 8.8 L, Hct 26.6 L, MCV 103.9 H, MCH 34.4 H, MCHC 33.1, RDW Std Deviation 96.5 H, RDW Coeff of Luis Alberto 26.0 H, Plt Count 223, MPV 10.9, Immature Gran % (Auto) 0.500, Neut % (Auto) 89.8 H, Lymph % (Auto) 3.5 L, [place] % (Auto) 5.8, Eos % (Auto) 0.2, Baso % (Auto) 0.2, Absolute Neuts (auto) 14.9 H, Absolute Lymphs (auto) 0.58 L, Nucleated RBC % 0.5, Differential Comment SCANNED, Platelet Estimate ADEQUATE, Polychromasia 1+, Anisocytosis 2+, Macrocytosis 1+, Target Cells 1+, Ovalocytes 2+, Acanthocytes (Spur) 1+, Schistocytes 1+, PT 29.5 H, INR 2.7, APTT 43.8 H, Sodium 136, Potassium 6.9 H*, Chloride 97 L, Carbon Dioxide 25.9, Anion Gap 13, BUN 94 H, Creatinine 2.58 H, Estim Creat Clear Calc 20.79 L, Est GFR (MDRD) Non-Af 23 L, BUN/Creatinine Ratio 36.5 H, Glucose 103 H, Lactic Acid 1.4, Calcium 8.7, Procalcitonin 0.16 H 08/09/25 03:10: Potassium 6.8 H*, Phosphorus 5.7 H, Magnesium 2.6 H 08/09/25 04:48: WBC 16.5 H, RBC 2.40 L, Hgb 8.3 L, Hct 25.1 L, MCV 104.6 H, MCH 34.6 H, MCHC 33.1, RDW Std Deviation 95.1 H, RDW Coeff of Luis Alberto 25.2 H, Plt Count 163, MPV 10.4, Immature Gran % (Auto) 0.500, Neut % (Auto) 91.3 H, Lymph % (Auto) 3.0 L, [place] % (Auto) 4.9, Eos % (Auto) 0.1, Baso % (Auto) 0.2, Absolute Neuts (auto) 15.1 H, Absolute Lymphs (auto) 0.49 L, Nucleated RBC % 0.3, Differential Comment SCANNED, Platelet Estimate ADEQUATE, Plt Morphology Comment LARGE, Polychromasia 1+, Hypochromasia 1+, Anisocytosis 3+, Macrocytosis 1+, Target Cells 1+, Tear Drop Cells RARE, Ovalocytes 1+, Acanthocytes (Spur) RARE, Schistocytes RARE, ESR 9, Sodium 134, Potassium 6.3 H*, Chloride 96 L, Carbon Dioxide 25.8, Anion Gap 12, BUN 93 H, Creatinine 2.52 H, Estim Creat Clear Calc 21.67 L, Est GFR (MDRD) Non-Af 24 L, BUN/Creatinine Ratio 36.8 H, Glucose 106 H, Calcium 8.4, Total Bilirubin 1.15, AST 26, ALT 22, Alkaline Phosphatase 109, C-React Prot Ext Range 22.80 H, Total Protein 6.1, Albumin 3.5, Globulin 2.5, Albumin/Globulin Ratio 1.4 08/09/25 06:51: Sodium Cancelled, Potassium Cancelled, Chloride Cancelled, Carbon Dioxide Cancelled, Anion Gap Cancelled, BUN Cancelled, Creatinine Cancelled, Estim Creat Clear Calc Cancelled, Est GFR (MDRD) Non-Af Cancelled, BUN/Creatinine Ratio Cancelled, Glucose Cancelled, Calcium Cancelled 08/09/25 08:30: Sodium 137, Potassium 6.2 H*, Chloride 100, Carbon Dioxide 26.0, Anion Gap 11, BUN 95 H, Creatinine 2.66 H, Estim Creat Clear Calc 20.53 L, Est GFR (MDRD) Non-Af 22 L, BUN/Creatinine Ratio 35.7 H, Glucose 43 L*, Calcium 8.5 08/09/25 09:33: POC Glucose 165 H 08/09/25 09:43: WBC 18.2 H, RBC 2.08 L, Hgb 7.2 L, Hct 22.3 L, MCV 107.2 H, MCH 34.6 H, MCHC 32.3, RDW Std Deviation 98.1 H, RDW Coeff of Luis Alberto 25.3 H, Plt Count 162, MPV 11.5, Immature Gran % (Auto) 0.900, Neut % (Auto) 92.7 H, Lymph % (Auto) 0.8 L, [place] % (Auto) 5.4, Eos % (Auto) 0.0, Baso % (Auto) 0.2, Absolute Neuts (auto) 16.8 H, Absolute Lymphs (auto) 0.15 L, Nucleated RBC % 0.9, Polychromasia 1+, Basophilic Stippling 1+, Anisocytosis 3+, Sodium 137, Potassium 6.0 H*, Chloride 100, Carbon Dioxide 27.2, Anion Gap 10, BUN 95 H, Creatinine 2.73 H, Estim Creat Clear Calc 20.00 L, Est GFR (MDRD) Non-Af 22 L, BUN/Creatinine Ratio 34.8 H, Glucose 85, Calcium 8.4, Total Bilirubin 1.44 H, AST 37, ALT 29, Alkaline Phosphatase 93, Total Creatine Kinase 33, Troponin T High Sens 194 H* D, Total Protein 5.1 L, Albumin 2.9 L, Globulin 2.2, Albumin/Globulin Ratio 1.3 08/09/25 09:45: Lactic Acid < 1.0 ABG Data ABG results: ABG 08/09/25 08/09/25 10:03 11:32 Specimen Type PRISCA ART Sample Site Not entered Art Line pH 7.29 L Bicarbonate Actual 31.0 H Total CO2 33 Base Excess 4 H O2 Saturation 94 L O2 % 55.0 35.0 ABG pCO2 64.9 H ABG pO2 83 VBG pH 7.36 VBG pO2 77 H VBG HCO3 33 H VBG Total CO2 35 H VBG O2 Sat (Calc) 94 H VBG Base Excess 8 H POC Mix VBG pCO2 Pt Tmp 59.8 H Respiration Rate 12 12 O2 Delivery Device BiPAP BiPAP Vent Mode BiLevel POC PEEP 10 Imaging Radiology Impression Chest X-Ray 08/09/25 10:18 IMPRESSION: Mild congestive changes with interval development of a small to moderate right-sided pleural effusion. Reading Location: [place] [id number]
--- NOTE | 2025-08-09 11:53 | PRO.PCM_ITS ---
Procedures Hospitalists Procedures: [id number] Insertion Catheter Artery Non-invasive Procedural Procedure Information Date of Procedure: 08/09/25 Description of procedure: Arterial Line Indication: Hypotension Consent was obtained from: A time-out was completed verifying correct patient, procedure, site, positioning, and special equipment if applicable. Sarbjit's test was performed to ensure adequate perfusion. The patient's left wrist was prepped and draped in the sterile fashion. 1% lidocaine was used to anesthetize the area. An 18- gauge arrow arterial line was introduced into the [ ] artery. The catheter was threaded over the guidewire and the needle was removed with the appropriate pulsatile blood return. The catheter was then sutured in place to the skin and a sterile dressing applied. Perfusion to the extremity distal to the point of catheter insertion was checked and found to be adequate. ULTRASOUND GUIDANCE STATEMENT (Vascular Access): I perform ultrasound image acquisition and interpretation for needle placement during this procedure. The vessel was identified and found to be free of thrombosis by compression technique. A safe point of entry was marked at the skin and then angle for acc ess was determined. The needle was guided by obtaining free-flowing fluid and by real-time visualization.
--- NOTE | 2025-08-09 11:53 | NURSING ---
1045 Dr. Horowitz at bedside to place Arterial line L radial Art line placed without difficulty.
[2025-08-09 12:20] LABS: Troponin T High Sens 2 HR 195 ng/L (<=22)
--- NOTE | 2025-08-09 12:20 | CON.PCM.PA_ITS ---
[facility] Medical History Chronic atrial fibrillation Anemia Restless legs syndrome Diverticulosis of intestine, part unspecified, without perforation or abscess without bleeding Vitamin D deficiency Nonrheumatic tricuspid (valve) insufficiency Acute on chronic combined systolic (congestive) and diastolic (congestive) heart failure Chronic anticoagulation Cellulitis Hypoxemia CMML (chronic myelomonocytic leukemia) Acquired immunocompromised state Lumbar stenosis Nocturnal hypoxemia Osteoarthritis Myasthenia gravis Cerebral vascular accident (~08/2022) Complete heart block Coronary artery disease (~09/2022) Hypothyroidism HLD (hyperlipidemia) Benign essential HTN Home Medications ?Medication ?Instructions ?Recorded ?Last Taken ?Type cholecalciferol (vitamin D3) 25 25 mcg PO DAILY vitami n 04/09/23 08/08/25 History mcg (1,000 unit) tablet cyanocobalamin (vitamin B-12) 1,000 mcg PO DAILY suppl iment 04/09/23 08/08/25 History 1,000 mcg capsule multivitamin 1 tab PO DAILY supplement 08/08/25 History rivaroxaban 20 mg tablet (Xarelto) 20 mg PO QPM afib 0 04/09/23 08/08/25 History atorvastatin 20 mg tablet 20 mg PO QHS colesterol 07/0 05/0108/08/25 History folic acid 1 mg tablet 1 mg PO BREAKFAST 30 days #3 0 tabs 05/18/23 08/08/25 Rx polyethylene glycol 3350 17 17 g PO DAILY PRN constipa tion 05/20/23 Unknown Rx gram/dose oral powder (Miralax) #238 grams nitroglycerin 0.4 mg sublingual 0.4 mg sublingual Q5M chest pain 06/23/25 Unknown History tablet aspirin 81 mg tablet,delayed [address] ordered 07/28/25 08/08/25 History release (Adult Aspirin Regimen) empagliflozin 10 mg tablet 10 mg PO QAM sugar 07/28/25 08/08/25 History (Jardiance) levothyroxine 112 mcg capsule 112 mcg PO QDAY thyroid 07/28/25 08/08/25 History carvedilol 3.125 mg tablet (Coreg) 3.125 mg PO BID #60 tabs 08/04/25 08/08/25 Rx furosemide 40 mg tablet 40 mg PO TID heart failure 3 0 days 08/04/25 08/08/25 Rx #90 tabs spironolactone 25 mg tablet 25 mg PO QDAY #60 tabs 08/08/25 Rx sacubitril 24 mg-valsartan 26 mg 1 tab PO BID CHF 10/12/0308/08/25 History tablet (Entresto) trazodone 50 mg tablet 50 mg PO QHS insomnia 08/08/25 History Allergy/AdvReac Type Severity Reaction Status Date / Time simvastatin Allergy Intermediate Other Verified 08/08/25 23:51 Family History Mother Heart disease Father Heart disease Surgical History History of ankle surgery (~12/2020) History of arthroplasty of right shoulder (~2008) Pacemaker (09/17/22) Hx of CABG (07/22/21) Social History household members: none Smoking Status: Former smoker how long ago did patient quit smokinyrs alcohol intake: current alcohol intake frequency: a few times a week details: 1-2 beers per month substance use type: does not use caffeine: Yes ROS Review of Systems ROS Unobtainable: due to mental condition and due to mental status Physical Exam Const Constitutional Narrative: Patient is currently experiencing respiratory distress and is on BiPAP. Resp Effort and Inspection: tachypneic and uses accessory muscles Auscultation: crackles, wheezes and diminished lung sounds Cardio Rate: tachycardic GI Inspection: abdominal distention Extremity Extremity Narrative: Pedal edema noted Skin Skin Narrative: Blistering to the bilateral lower extremities Neuro Neuro Narrative: Unable to assess as patient is altered mental status and restless. Psych Activity / Motor Behavior: restless Charges/Coding Palliative Care Palliative Care: 61056 New Pt Consult 80+ min HPI Current admission Current Code Status: Comfort care Consult Data Date of Consult: 08/09/25 Location of consult: [facility] Reason for referral: Possible hospice versus comfort care Referral source: Dr. Rebolledo Palliative care diagnosis (Summary list): Congestive heart failure Palliative care services/treatment (Accepted, as consult): accepted Case discussed with referring provider: Transitioning to comfort care. HPI Narrative HPI Narrative: PAIN ASSESSMENT pt is not verbal but he is restless. Location: [ ] Quality: [ ] Severity/Quantity: [ ] Timing/Frequency: [ ] Context: [ ] Factors that make it better/worse: [ ] Associated signs & symptoms: [ ] SRINI LOZADA, was on PCU when a rapid response was called for agitation, shortness of breath and hypotension. He was then taken to ICU and was placed on BiPAP. Levophed was initiated. Patient's family daughters Denice and Liza were both bedside. Liza is patient's POA. I had an extensive discussion with Denice and Liza about patient wishes going forward. They both state that they know their father would not want any of this. He is currently on Levophed at 10 and continues to be hypotensive at 68/40. He is currently on BiPAP and is continually swatting at the BiPAP and is very restless. Liza called her brothers in which they all decided as a family to transition their father to comfort focused care. I did update Dr. Horowitz and Dr. Rebolledo. Dr. Rebolledo did request I placed comfort care orders. I did go over these orders with the family. They are both aware that the Levophed will be stopped after the patient is giving Ativan and morphine for his restlessness and air hunger. They are both in agreement. They are also in agreement about removing the patient's BiPAP as they feel this is causing more harm to him as he is very restless with it on. Both Denice and Liza state understanding that the patient most likely has moments to hours with the likelihood that he will pass away relatively soon. I did speak with nursing, as well, to let them know family decision and how we plan to proceed with care going forward. All questions the family had were answered. I did contact videotape recording engineer Darion for additional assistance at bedside. Comfort care orders placed. Per hospitalist: The patient is an 89 y/o M w/ PMHx: Hx CVA, Hypothyroidism, chronic bilateral lower extremity lymphedema, CKD stage III unclear subtype per GFR trending, Chronic macrocytic anemia, Chronic AF, RLS, Chronic myelomonocytic leukemia, HFcombined EF, Hx Complete HB s/p pacemaker placement, HTN, HLD, Myasthenia gravis, CAD s/p CABG, Former tobacco use who presents to the [facility] ED on 08/09/2025 with history of going to be without issue with upon awakening just prior to ED arrival with LUE elbow->hand erythema, edema, painful as well as increased warmth to touch similar to his prior cellulitis presentations with no fever or chills prompting ED evaluation to be cautious. Patient of note had recent lasix increase outpatient. Workup in the ED included T98.6, heart rate 96, BP 104/73, respiratory rate 24, 100% on 3 L nasal cannula with most recent repeat vitals heart rate 85, BP 10 10/70, respiratory rate 22, 95% on room air, CBC with WC 16.6, hemoglobin 8.8, MCV 103.9, platelet 223 with left shift and lymphopenia, coags with INR 2.7, BMP with potassium 6.9 noted to be hemolyzed, BUN/creatinine 94/2.58, GFR 23, glucose 103, lactic acid 1.4, procalcitonin 0.16, blood culture x 2 pending per ED. In the ED patient ministered morphine 2 mg IV x 1, Zofran 4 mg IV x 1 as well as Zosyn 3.375 mg IV x 1. Palliative Assessment Advanced Directive - Current Admission Advance Directive: Advance Directive ON ADMISSION - REFERENCE 3 Do you have a Healthcare Yes 08/09/25 04:16 Living Will? Is a Healthcare Living Will Yes, It is scanned in 08/09/25 04:16 present in the medical record? Do you have a Healthcare Power Yes: liza Crews 08/09/25 04:16 of Scientific Editor? Janelle Is a Healthcare Power of Yes, It is scanned in 08/09/25 04:16 Scientific Editor present in the medical rec Do You Want Additional Declined 08/09/25 04:16 Information on Advanced Directives or Healthcare Proxy/DPOA comments: Daughter Liza Psychosocial/Spiritual Information Living situation/Marital status: Lives independently Supports: Family Christianity/Melissa or spiritual preference: Muslim Spiritual distress: Unable to assess Prior functional status: Mostly in wheelchair Assistive devices at home: Wheelchair Information about the patient as a person: Patient enjoys spending time with family Symptoms Palliative performance scale: 10 Palliative prognostic index: 15.0 Dyspnea symptoms: Severe Weakness symptoms: Severe Confusion symptoms: Severe Objective Data Objective Data Patient is very hypotensive and is currently on Levophed Vital Signs: Vital Signs Temp Pulse Resp BP Pulse Ox O2 Del Method O2 Flow Rate 97.6 F L 95 17 93/47 L 97 Bi-pap 4 08/09/25 04:33 08/09/25 12:00 08/09/25 11:30 08/09/25 12:00 08/09/25 11:30 08/09/25 11:30 08/09/25 05:42 FiO2 35 08/09/25 11:15 Oxygen Flow Rate (L/min) 4 Oxygen Delivery Method Bi-pap Weight: 206 lb 5.643 oz Body Mass Index (BMI) 33.3 Intake & Output: Intake and Output for Last 24 Hours 08/07/25 08/08/25 08/09/25 23:59 23:59 23:59 Intake Total 3734.59 / 3734.59 Output Total 200 / 200 Balance 3534.59 / 3534.59 Lab / Micro Data Attestation: I reviewed the patient's lab results. Lab results narrative: Patient does have a history of chronic kidney failure appears to have DANE on CKD 08/09/25 09:43 08/09/25 09:43 Labs: Laboratory Results - last 24 hr 08/09/25 01:40: WBC 16.6 H, RBC 2.56 L, Hgb 8.8 L, Hct 26.6 L, MCV 103.9 H, MCH 34.4 H, MCHC 33.1, RDW Std Deviation 96.5 H, RDW Coeff of Luis Alberto 26.0 H, Plt Count 223, MPV 10.9, Immature Gran % (Auto) 0.500, Neut % (Auto) 89.8 H, Lymph % (Auto) 3.5 L, Avery % (Auto) 5.8, Eos % (Auto) 0.2, Baso % (Auto) 0.2, Absolute Neuts (auto) 14.9 H, Absolute Lymphs (auto) 0.58 L, Nucleated RBC % 0.5, Differential Comment SCANNED, Platelet Estimate ADEQUATE, Polychromasia 1+, Anisocytosis 2+, Macrocytosis 1+, Target Cells 1+, Ovalocytes 2+, Acanthocytes (Spur) 1+, Schistocytes 1+, PT 29.5 H, INR 2.7, APTT 43.8 H, Sodium 136, P otassium 6.9 H*, Chloride 97 L, Carbon Dioxide 25.9, Anion Gap 13, BUN 94 H, C reatinine 2.58 H, Estim Creat Clear Calc 20.79 L, Est GFR (MDRD) Non-Af 23 L, B UN/Creatinine Ratio 36.5 H, Glucose 103 H, Lactic Acid 1.4, Calcium 8.7, P rocalcitonin 0.16 H 08/09/25 03:10: Potassium 6.8 H*, Phosphorus 5.7 H, Magnesium 2.6 H 08/09/25 04:48: WBC 16.5 H, RBC 2.40 L, Hgb 8.3 L, Hct 25.1 L, MCV 104.6 H, MCH 34.6 H, MCHC 33.1, RDW Std Deviation 95.1 H, RDW Coeff of Luis Alberto 25.2 H, Plt Count 163, MPV 10.4, Immature Gran % (Auto) 0.500, Neut % (Auto) 91.3 H, Lymph % (Auto) 3.0 L, Avery % (Auto) 4.9, Eos % (Auto) 0.1, Baso % (Auto) 0.2, Absolute Neuts (auto) 15.1 H, Absolute Lymphs (auto) 0.49 L, Nucleated RBC % 0.3, Differential Comment SCANNED, Platelet Estimate ADEQUATE, Plt Morphology Comment LARGE, Polychromasia 1+, Hypochromasia 1+, Anisocytosis 3+, Macrocytosis 1+, Target Cells 1+, Tear Drop Cells RARE, Ovalocytes 1+, Acanthocytes (Spur) RARE, Schistocytes RARE, ESR 9, Sodium 134, Potassium 6.3 H*, Chloride 96 L, Carbon Dioxide 25.8, Anion Gap 12, BUN 93 H, Creatinine 2.52 H, Estim Creat Clear Calc 21.67 L, Est GFR (MDRD) Non-Af 24 L, BUN/Creatinine Ratio 36.8 H, Glucose 106 H, Calcium 8.4, Total Bilirubin 1.15, AST 26, ALT 22, Alkaline Phosphatase 109, C- React Prot Ext Range 22.80 H, Total Protein 6.1, Albumin 3.5, Globulin 2.5, Albumin/Globulin Ratio 1.4 08/09/25 06:51: Sodium Cancelled, Potassium Cancelled, Chloride Cancelled, Carbon Dioxide Cancelled, Anion Gap Cancelled, BUN Cancelled, Creatinine Cancelled, Estim Creat Clear Calc Cancelled, Est GFR (MDRD) Non-Af Cancelled, BUN/Creatinine Ratio Cancelled, Glucose Cancelled, Calcium Cancelled 08/09/25 08:30: Sodium 137, Potassium 6.2 H*, Chloride 100, Carbon Dioxide 26.0, Anion Gap 11, BUN 95 H, Creatinine 2.66 H, Estim Creat Clear Calc 20.53 L, Est GFR (MDRD) Non-Af 22 L, BUN/Creatinine Ratio 35.7 H, Glucose 43 L*, Calcium 8.5 08/09/25 09:33: POC Glucose 165 H 08/09/25 09:43: WBC 18.2 H, RBC 2.08 L, Hgb 7.2 L, Hct 22.3 L, MCV 107.2 H, MCH 34.6 H, MCHC 32.3, RDW Std Deviation 98.1 H, RDW Coeff of Luis Alberto 25.3 H, Plt Count 162, MPV 11.5, Immature Gran % (Auto) 0.900, Neut % (Auto) 92.7 H, Lymph % (Auto) 0.8 L, Avery % (Auto) 5.4, Eos % (Auto) 0.0, Baso % (Auto) 0.2, Absolute Neuts (auto) 16.8 H, Absolute Lymphs (auto) 0.15 L, Nucleated RBC % 0.9, Polychromasia 1+, Basophilic Stippling 1+, Anisocytosis 3+, Sodium 137, P otassium 6.0 H*, Chloride 100, Carbon Dioxide 27.2, Anion Gap 10, BUN 95 H, C reatinine 2.73 H, Estim Creat Clear Calc 20.00 L, Est GFR (MDRD) Non-Af 22 L, B UN/Creatinine Ratio 34.8 H, Glucose 85, Calcium 8.4, Total Bilirubin 1.44 H, AST 37, ALT 29, Alkaline Phosphatase 93, Total Creatine Kinase 33, Troponin T High Sens 194 H* D, Total Protein 5.1 L, Albumin 2.9 L, Globulin 2.2, Albumin/Globulin Ratio 1.3 08/09/25 09:45: Lactic Acid < 1.0 ABG Data ABG results: ABG 08/09/25 08/09/25 10:03 11:32 Specimen Type PRISCA ART Sample Site Not entered Art Line pH 7.29 L Bicarbonate Actual 31.0 H Total CO2 33 Base Excess 4 H O2 Saturation 94 L O2 % 55.0 35.0 ABG pCO2 64.9 H ABG pO2 83 VBG pH 7.36 VBG pO2 77 H VBG HCO3 33 H VBG Total CO2 35 H VBG O2 Sat (Calc) 94 H VBG Base Excess 8 H POC Mix VBG pCO2 Pt Tmp 59.8 H Respiration Rate 12 12 O2 Delivery Device BiPAP BiPAP Vent Mode BiLevel POC PEEP 10 Attestation: I personally reviewed and interpreted this ABG as follows: Radiography Diagnostic Testing: Radiology Impression Chest X-Ray 08/09/25 10:18 IMPRESSION: Mild congestive changes with interval development of a small to moderate right- sided pleural effusion. Reading Location: [place] [address] Rhythm Strip Rhythm Strip: Sinus Tach Impressions & Recommendations Patient & Family Issues discussed with the patient and family: Transition to comfort care Patient goal: Patient is unable to participate Family goal: Family is interested in comfort and transitioning to comfort focused care/hospice Recommentation Palliative recommendations: Patient would be appropriate for comfort focused care as he is currently on Levophed and BiPAP. Encouter Achieved as a result of this Palliative Care Encounter: [ [id number]] minutes were spent in total for this visit which consisted, primarily of counseling and education dealing with the complex and emotionally intense issues of symptom management and palliative care in the setting of serious and potentially life-threatening illness. Review of documentation, labs and radiological studies. ?Patient/family had the opportunity to ask questions Plan (1) Lotra-[id number] kidney injury: (2) Current use of senior living anticoagulation: (3) Congestive heart failure: (4) Cellulitis of left upper extremity: (5) Chronic atrial fibrillation: (6) CMML (chronic myelomonocytic leukemia): (7) Acquired immunocompromised state: (8) Palliative care encounter: PLAN: *Comfort care orders placed: *Ativan 1 mg IV every 2 hours as needed for restlessness and agitation patient has a BMI of 32.3 *Morphine 2 mg every hour as needed for shortness of breath with RR>22 or pain 1-10 *Zofran 8 mg IV every 8 hours as needed for nausea *Haldol 1 mg p.o. every 4 hours as needed for agitation or hallucinations *May discontinue BiPAP once patient has been medicated and is comfortable *May discontinue Levophed once patient is medicated and comfortable (9) Goals of care, counseling/discussion: PLAN: *Family is wanting comfort measures with no additional aggressive medical treatments.
--- NOTE | 2025-08-09 12:27 | PCM.PN.BLA ---
Progress Note Received consultation for sepsis. However, prior to completing my full evaluation of the patient, his family elected to transition his care to DNR CC. The patient was evaluated by hospice care with plans for initiation of comfort care measures.
--- NOTE | 2025-08-09 15:28 | CHAPLAIN ---
Type of Pastoral Visit _x__ Initial Visit ___ Follow-up Visit ___ On-call Visit ___ General Patient Visit ___ Spiritual Assessment ___ Family Conference ___ Bereavement ___ Rapid Response ___ Code Blue _x__ Other (describe below) Pastoral Care Referral From ___ Patient ___ Family _x__ Nurse ___ Physician ___ Concert Or Lecture Hall Manager ___ Cardiac Care Nurse ___ Other (describe below) Sacrament/Intervention _x__ Active listening ___ Anointing ___ Islam ___ Bereavement ___ Communion _x__ Melissa exploration ___ _x__ Life review _x__ Prayer ___ Reconciliation ___ Sacrament of Sick _x__ Supportive presence ___ Wedding ___ Other (describe below) Pastoral Comments SAP ANALYST advised this activated sludge operator on need for support of family at this time; pt has had decline and was a rapid response earlier today; pt is sedated and unresponsive at this time but several family members are at bedside and welcoming of support; family gives life review of patient and many good virtues of his life and activities; pt has been active in helping ministries through the community and scientology; daughter asks for a recitation of the Psa; another daughter requests a call to the local associate theatre professor of the patient and that was accomplished; made a second visit later and found one daughter in the room; associate theatre professor had come already; and the activated sludge operator from the [place] came during this visit; family is appropriate in their expectations and acceptance that this is end-of-life time; will remain available as desired
--- NOTE | 2025-08-09 15:29 | CASEMGMT ---
[facility] Palliative Care BOXER OPERATOR states to this RN CM that an emergent Hospice referral is to be made to [facility]. SW notified.
--- NOTE | 2025-08-09 16:39 | CASEMGMT ---
Social Work SW received referral from RNCM for Hopsice IPU. Referral faxed to [facility]. GARTH met with pt's dgt Denice who is agreeable to referral and requesting Hospice call pt chelsi De Jesus to schedule an appointment. GARTH notified nursing. Nursing states that pt's vitals have changed. GARTH reached out to ARMEN Richardson. Debra met with family and pt and now requesting hospice referral be put on hold. [facility] notified to cancel referral at this time. ARTEM Tello
--- NOTE | 2025-08-09 17:36 | NURSING ---
Time of 08-09-2025 1640. confirmed by 2 RN's Mitch JIMÉNEZ and Leslie JIMÉNEZ.
--- NOTE | 2025-08-09 18:19 | EXP.PCM_ITS ---
Preliminary Cause of Preliminary Cause of Preliminary Cause of : Septic shock secondary to cellulitis DANE on CKD Hyperkalemia. Acute encephalopathy Date of Admission: 08/09/25 Date of : 08/09/25 Principle Diagnosis Problem List: Active and Suspected Problems (Updated 08/09/25 @ 13:59 by Tara Garcia) Goals of care, counseling/discussion (Acute) Palliative care encounter (Acute) Current use of intermission coordinator anticoagulation (Acute) Congestive heart failure (Acute) Cellulitis of left upper extremity (Acute) Cellulitis (Acute) Acquired immunocompromised state (Acute) Assessment & Plan Assessment/Plan (1) Cellulitis: PLAN: Plan The patient is an 89 y/o M came to ED with complaint of left arm pain starting 30 minutes prior to arrival. Left arm swelling was from elbow to hand, left elbow more erythematous than left hand, painful, increased warmth, started few hours later after he went to bed at 8 or 9 PM last night. No recent trauma. He had previous bouts of cellulitis which required hospitalization. He was admitted in the PCU #1. Septic shock with transient hypotension due to LUE Extremity Cellulitis complicated with chronic bilateral lymphedema: Patient transported to PACU late about 830-8:45 AM as per patient's RN and and then soon had rapid response. Patient on IV vancomycin and Zosyn. Sepsis protocol followed with 30 mL/kg body weight. Please see sepsis note. The patient presented with sepsis with clinical jcarlos cators of hypoxia, tachypnea altered mental status/lethargy due to bilateral lower extremity with acute sepsis-related organ dysfunction as evidenced by hypotension, acute encephalopathy, drop in SBP more than 40 ABG, acute respiratory failure requiring BiPAP DANE on CKD, oliguria. Some endorgan perfusion markers like INR, creatinine and urine output may be biased by DANE on CKD and history of heart failure. Driver Supervisor and ID consulted. 08/09 later on ID consult to discuss family agreed for DNR CC hospice care. Discussed with animal park code enforcement officer and inserted the arterial line but as the family agreed for DNR CC hospice care therefore the actual animal park code enforcement officer evaluation was not pertinent. Patient required Levophed through peripheral line but has a family member did not want further invasive procedure including central line or PICC line and decision of DNR/hospice care therefore BiPAP, arterial line, Levophed were discontinued #2. Acute kidney injury on CKD stage III unclear subtype or GFR trending: Secondary to likely recent nephrotoxic medication increase specifically Lasix. Admission BUN/Cr 94/2.58, GFR 23, prior baseline creatinine noted to be primarily 1.2-1.4, most recently 08/02/2024 creatinine 1.29. Urinalysis ordered. Senior Mechanical Designer consulted. #3. Hyperkalemia,: Although initial sample was 6.9 but is still true was high 6.3. Calcium was 0.5 g IV push was given. Hyperkalemic cocktail was given in the ED and then given hyperkalemia cocktail including 3 g of calcium gluconate was given during rapid response. IV sodium bicarbonate push and D50 was given. Patient also had Kayexalate enema ordered. severe hypoglycemia: Glucose wa 43. Accu-Chek was 165. Repeat glucose 85 on BMP. CAD: Status post CABG: Patient on a statin. Hold all antihypertensive medication as patient is in shock. Xarelto was held due to drop in hemoglobin to 7.2 during rapid response blood draw. Hold all cardiac medications metoprolol due to patient in sepsis. Started on low-dose metoprolol succinate. BP on lower side therefore not good candidate for CITLALLI/ARB. As per son patient had cardiac cath and angioplasty in [facility]. #3. myasthenia gravis: During initial ED evaluation admitting physician, patient seemed no acute exacerbation. PT and OT #4. CML and history of DVT: Patient had chemotherapy in the past through the port in the left arm. He said he also had DVT in the leg and left arm close to the port. Continue Xarelto #5. History of CVA: On statin and Xarelto #6. Chronic HF combined, HFrEF and HFpEF, complete heart block status post pacemaker: Most recent echocardiogram noted 07/28/2025 with normal LV size, LVEF 35%, moderate to severe global hypokinesis LV, stage III diastolic dysfunction, PASP 33 mmHg, moderate concentric LVH: continue aspirin, change Xarelto to renal dosing, continue statin therapy. Hold Lasix and hypertensive due to DANE on CKD #7. Acute on chronic severe chronic macrocytic anemia: Admission hemoglobin 9.6, MCV 108, baseline hemoglobin appears primarily 8-9. Repeat H&H was 7.2/22.3% Triptil. 162. Xarelto discontinued for now #9. Chronic A-fib:Currently patient's rhythm is wide-complex and undetermined. #10. Hypertension: Noted history, per current list only on oral Lasix/metolazone, will maintain on metolazone and transition to IV Lasix given presentation as noted, as needed IV hydralazine additionally. #11. Hyperlipidemia: Continue home statin regimen. Lipid profile in normal limit #12. Hypothyroidism: TSH elevated 7.5. Home levothyroxine dose increased but patient not will take oral #13. Former tobacco use: Encourage continued tobacco cessation. #14. DVT prophylaxis: continue patient home Xarelto regimen. After detailed discussion with patient's daughter, POA and other family member in ICU they agreed for palliative/hospice care. Palliative hospice care was called, seen by Debra. I myself spoke to Debra and explained the clinical condition. She immediately came to see the patient and family decided for DNR CC hospice care. CODE STATUS was changed accordingly. As per the family's desire patient was taken of BiPAP, Levophed drip which was running through peripheral he was discontinued. Earlier family did not agree for central line and PICC line. Arterial line was placed by animal park code enforcement officer. Comfort medications were given. Finally patient passed out/diet comfortably at 1640 hrs. on 08/09/2025 Laboratory Results 08/09/25 01:40: WBC 16.6 H, RBC 2.56 L, Hgb 8.8 L, Hct 26.6 L, MCV 103.9 H, MCH 34.4 H, MCHC 33.1, RDW Std Deviation 96.5 H, RDW Coeff of Luis Alberto 26.0 H, Plt Count 223, MPV 10.9, Immature Gran % (Auto) 0.500, Neut % (Auto) 89.8 H, Lymph % (Auto) 3.5 L, Graves % (Auto) 5.8, Eos % (Auto) 0.2, Baso % (Auto) 0.2, Absolute Neuts (auto) 14.9 H, Absolute Lymphs (auto) 0.58 L, Nucleated RBC % 0.5, Differential Comment SCANNED, Platelet Estimate ADEQUATE, Polychromasia 1+, Anisocytosis 2+, Macrocytosis 1+, Target Cells 1+, Ovalocytes 2+, Acanthocytes (Spur) 1+, Schistocytes 1+, PT 29.5 H, INR 2.7, APTT 43.8 H, Sodium 136, Potassium 6.9 H*, Chloride 97 L, Carbon Dioxide 25.9, Anion Gap 13, BUN 94 H, Creatinine 2.58 H, Estim Creat Clear Calc 20.79 L, Est GFR (MDRD) Non-Af 23 L, BUN/Creatinine Ratio 36.5 H, Glucose 103 H, Lactic Acid 1.4, Calcium 8.7, Procalcitonin 0.16 H 08/09/25 03:10: Potassium 6.8 H*, Phosphorus 5.7 H, Magnesium 2.6 H 08/09/25 04:48: WBC 16.5 H, RBC 2.40 L, Hgb 8.3 L, Hct 25.1 L, MCV 104.6 H, MCH 34.6 H, MCHC 33.1, RDW Std Deviation 95.1 H, RDW Coeff of Luis Alberto 25.2 H, Plt Count 163, MPV 10.4, Immature Gran % (Auto) 0.500, Neut % (Auto) 91.3 H, Lymph % (Auto) 3.0 L, Graves % (Auto) 4.9, Eos % (Auto) 0.1, Baso % (Auto) 0.2, Absolute Neuts (auto) 15.1 H, Absolute Lymphs (auto) 0.49 L, Nucleated RBC % 0.3, Differential Comment SCANNED, Platelet Estimate ADEQUATE, Plt Morphology Comment LARGE, Polychromasia 1+, Hypochromasia 1+, Anisocytosis 3+, Macrocytosis 1+, Target Cells 1+, Tear Drop Cells RARE, Ovalocytes 1+, Acanthocytes (Spur) RARE, Schistocytes RARE, ESR 9, Sodium 134, Potassium 6.3 H*, Chloride 96 L, Carbon Dioxide 25.8, Anion Gap 12, BUN 93 H, Creatinine 2.52 H, Estim Creat Clear Calc 21.67 L, Est GFR (MDRD) Non-Af 24 L, BUN/Creatinine Ratio 36.8 H, Glucose 106 H, Calcium 8.4, Total Bilirubin 1.15, AST 26, ALT 22, Alkaline Phosphatase 109, C- React Prot Ext Range 22.80 H, Total Protein 6.1, Albumin 3.5, Globulin 2.5, Albumin/Globulin Ratio 1.4 08/09/25 06:51: Sodium Cancelled, Potassium Cancelled, Chloride Cancelled, Carbon Dioxide Cancelled, Anion Gap Cancelled, BUN Cancelled, Creatinine Cancelled, Estim Creat Clear Calc Cancelled, Est GFR (MDRD) Non-Af Cancelled, BUN/Creatinine Ratio Cancelled, Glucose Cancelled, Calcium Cancelled 08/09/25 08:30: Sodium 137, Potassium 6.2 H*, Chloride 100, Carbon Dioxide 26.0, Anion Gap 11, BUN 95 H, Creatinine 2.66 H, Estim Creat Clear Calc 20.53 L, Est GFR (MDRD) Non-Af 22 L, BUN/Creatinine Ratio 35.7 H, Glucose 43 L*, Calcium 8.5 08/09/25 09:33: POC Glucose 165 H 08/09/25 09:43: WBC 18.2 H, RBC 2.08 L, Hgb 7.2 L, Hct 22.3 L, MCV 107.2 H, MCH 34.6 H, MCHC 32.3, RDW Std Deviation 98.1 H, RDW Coeff of Luis Alberto 25.3 H, Plt Count 162, MPV 11.5, Immature Gran % (Auto) 0.900, Neut % (Auto) 92.7 H, Lymph % (Auto) 0.8 L, Graves % (Auto) 5.4, Eos % (Auto) 0.0, Baso % (Auto) 0.2, Absolute Neuts (auto) 16.8 H, Absolute Lymphs (auto) 0.15 L, Nucleated RBC % 0.9, Sodium 137, Potassium 6.0 H*, Chloride 100, Carbon Dioxide 27.2, Anion Gap 10, BUN 95 H, Creatinine 2.73 H, Estim Creat Clear Calc 20.00 L, Est GFR (MDRD) Non- Af 22 L, BUN/Creatinine Ratio 34.8 H, Glucose 85, Calcium 8.4, Total Bilirubin 1.44 H, AST 37, ALT 29, Alkaline Phosphatase 93, Total Creatine Kinase 33, Troponin T High Sens 194 H* D, Total Protein 5.1 L, Albumin 2.9 L, Globulin 2.2, Albumin/Globulin Ratio 1.3 08/09/25 09:45: Lactic Acid < 1.0 08/09/25 10:03: Specimen Type PRISCA, Sample Site Not entered, O2 % 55.0, VBG pH 7.36, VBG pO2 77 H, VBG HCO3 33 H, VBG Total CO2 35 H, VBG O2 Sat (Calc) 94 H, VBG Base Excess 8 H, POC Mix VBG pCO2 Pt Tmp 59.8 H, Respiration Rate 12, O2 Delivery Device BiPAP Visit Charges Inpatient E&M: 56434 Disch Hosp >30min
== END 2025-08-09 18:30 | DRG 871 ==
LOC: ED 08-09 03:31 → PCU 08-09 03:55 → ICU 08-09 10:07
PROVIDERS: Admitting Provider Family Medicine; Emergency Provider Emergency Medicine; PCP Internal Medicine; Visit Provider Internal Medicine
DX: A41.9 Sepsis, unspecified organism (principal); J96.01 Acute respiratory failure with hypoxia; R65.21 Severe sepsis with septic shock; C93.10 Chronic myelomonocytic leukemia not having achieved remission; I44.2 Atrioventricular block, complete; L03.114 Cellulitis of left upper limb; G93.40 Encephalopathy, unspecified; I13.0 Hypertensive heart and chronic kidney disease with heart failure and stage 1 through stage 4 chronic kidney disease, or unspecified chronic kidney disease; I48.20 Chronic atrial fibrillation, unspecified; N17.9 Acute kidney failure, unspecified; I50.42 Chronic combined systolic (congestive) and diastolic (congestive) heart failure; D63.1 Anemia in chronic kidney disease; Z51.5 Encounter for palliative care; Z66 Do not resuscitate; N18.30 Chronic kidney disease, stage 3 unspecified; E03.9 Hypothyroidism, unspecified; G70.00 Myasthenia gravis without (acute) exacerbation; D53.9 Nutritional anemia, unspecified; I25.10 Atherosclerotic heart disease of native coronary artery without angina pectoris; E78.5 Hyperlipidemia, unspecified; E87.6 Hypokalemia; E87.5 Hyperkalemia; I89.0 Lymphedema, not elsewhere classified; E16.2 Hypoglycemia, unspecified; I45.10 Unspecified right bundle-branch block; Z86.73 Personal history of transient ischemic attack (TIA), and cerebral infarction without residual deficits; Z87.891 Personal history of nicotine dependence; B95.62 Methicillin resistant Staphylococcus aureus infection as the cause of diseases classified elsewhere; Z79.82 Long term (current) use of aspirin; Z79.899 Other long term (current) drug therapy; Z79.01 Long term (current) use of anticoagulants; Z79.890 Hormone replacement therapy; Z95.0 Presence of cardiac pacemaker; R45.1 Restlessness and agitation; Z95.1 Presence of aortocoronary bypass graft; Z86.718 Personal history of other venous thrombosis and embolism
CPT/HCPCS: 36415; 36569; 71045; 80048; 80053; 82550; 82803; 82962; 83605; 83735; 84100; 84132; 84145; 84484; 85025; 85610; 85652; 85730; 86140; 87040; 87631; 87641; 93005; 94002; 94640; 94660; 94762; 99285; A4216; J0612; J2405